=== PATIENT | male | born 1975 | race Caucasian/White ===

== ENCOUNTER → 2018-01-01 08:56 | Outpatient (POV) | payer BC, SELFPAY | PROVIDERS: Family Provider Family Medicine; Visit Provider Specialist | DX: G62.9 Polyneuropathy, unspecified (principal) | CPT/HCPCS: 95886; 95911 ==

== ENCOUNTER → 2018-07-12 07:26 | Outpatient (CLI) | payer BC, SELFPAY | PROVIDERS: PCP Family Medicine; Visit Provider Family Medicine | DX: R06.83 Snoring (principal); R40.0 Somnolence; R53.83 Other fatigue; I10 Essential (primary) hypertension | CPT/HCPCS: 95806 ==

== ENCOUNTER → 2019-06-10 16:33 | Outpatient (CLI) | payer MEDICARE, SELFPAY | PROVIDERS: PCP Family Medicine; Visit Provider Specialist | DX: G47.33 Obstructive sleep apnea (adult) (pediatric) (principal); G47.19 Other hypersomnia; G62.9 Polyneuropathy, unspecified; R06.83 Snoring ==

== ENCOUNTER → 2019-06-15 13:44 | Outpatient (CLI) | payer MEDICARE, SELFPAY | LOC: SL 13:45 | PROVIDERS: PCP Family Medicine; Visit Provider Specialist | DX: G47.33 Obstructive sleep apnea (adult) (pediatric) (principal); G47.34 Idiopathic sleep related nonobstructive alveolar hypoventilation | CPT/HCPCS: G0399 ==

== ENCOUNTER → 2020-04-14 14:03 | Outpatient (POV) | payer MEDICARE, MEDICAID, SELFPAY | PROVIDERS: Visit Provider Dermatology | DX: Z00.00 Encounter for general adult medical examination without abnormal findings (principal) ==

== ENCOUNTER 2020-04-22 03:01 | Emergency (ER) | payer MEDICARE, MEDICAID, SELFPAY ==
[2020-04-22 03:01] VITALS: BP 199/125; PULSE 107; RESP 16; TEMP 37.6; O2SAT 98; BMI 43.0
--- NOTE | 2020-04-22 03:13 | CT_ITS ---
PROCEDURE: CT LUMBAR SPINE WO CON CLINICAL HISTORY: lower back pain Low back pain, patient on dialysis COMPARISON: CT ABDPELW/O CT ABD PELVIS W/O CONTRAST from 06/03/2017 TECHNIQUE: Axial images obtained with sagittal and coronal reformats. All CT scans at the facility use one or more dose reduction, viz: automated exposure control, ma/kV adjustment per patient size (including targeted exams where dose is matched to indication, i.e. head), or iterative reconstruction technique. FINDINGS: L1-L2, L2-L3, L3-L4, have an unremarkable appearance. L4-5: Minimal bulging disc L5-S1: Grade 1 spondylitic spondylolisthesis of L5 on S1 with bulging disc. There is 6 mm anterolisthesis of L5. There is sclerosis of the inferior L5 endplate with Schmorl's nodes with mild degenerative disc disease at that level. There is moderate right and severe left foraminal narrowing from the spondylolisthesis, bulging disc, and bony hypertrophic change. Facet arthritic changes are also present at this level. Incidental note is made multiple varices in the perisplenic region. IMPRESSION: 1. L5-S1: Grade 1 spondylitic spondylolisthesis of L5 on S1 with bulging disc. There is 6 mm anterolisthesis of L5. There is sclerosis of the inferior L5 endplate with Schmorl's nodes with mild degenerative disc disease at that level. There is moderate right and severe left foraminal narrowing from the spondylolisthesis, bulging disc, and bony hypertrophic change. Facet arthritic changes are also present at this level 2. Perisplenic varices Dictated by: Michael May MD 04/22/2020 07:31 Michael May MD in [place] 04/22/2020 07:31
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
--- NOTE | 2020-04-22 03:53 | PC.NURSE ---
Pt gone to CT
[2020-04-22 04:01] VITALS: BP 143/87; PULSE 90; RESP 16; O2SAT 95
--- NOTE | 2020-04-22 04:10 | PC.NURSE ---
Pt returned from CT
[2020-04-22 04:15] LABS: Basophils % 0.3 % (0.1-2.0); Eosinophils # 0.1 K/mm3 (0.0-0.4); Eosinophils % 0.7 % (0.1-12.0); Hematocrit 31.5 % (42.0-52.0); Lymphocytes # 1.9 K/mm3 (0.7-4.5); Lymphocytes % 25.5 % (10-50); Mean Corpuscular Hemoglobin 33.1 pg (27.0-31.2); Mean Corpuscular Volume 94.5 fl (80-94); Mean Platelet Volume 7.9 fl (7.4-10.4); Monocytes # 0.7 K/mm3 (0.1-1.0); Monocytes % 9.2 % (1.7-9.3); Neutrophils # 4.9 K/mm3 (1.8-7.8); Neutrophils % 64.3 % (37.0-80.0); Platelet Count 224 K/mm3 (142-424); Red Blood Count 3.33 M/mm3 (4.60-6.20); Red Cell Distribution Width 14.6 % (11.5-17.5); White Blood Count 7.6 K/mm3 (4.8-10.8)
[2020-04-22 04:19] LABS: Chloride 97 mmol/L (98-107)
[2020-04-22 04:20] LABS: Potassium 3.6 mmoL/L (3.5-5.1); Sodium 136 mmol/L (136-145)
[2020-04-22 04:22] LABS: Alanine Aminotransferase 19 U/L (12-78); Aspartate Amino Transferase 18 U/L (17-59); Blood Urea Nitrogen 21 mg/dl (9-20); Creatinine Clearance Estimated 17 mL/min (50-200); Estimated Glomerular Filt Rate 12 ml/min (>60); GFR (African American) 15 ML/MIN (>60)
[2020-04-22 04:23] VITALS: BP 143/87; PULSE 89; RESP 16; O2SAT 97
[2020-04-22 04:23] LABS: Albumin/Globulin Ratio 1.3 (1.1-1.8); Alkaline Phosphatase 111 U/L (38-126); Anion Gap 14.6 mEq/L (5-15); Bilirubin,Total 0.5 mg/dl (0.2-1.3); Calcium 8.7 mg/dl (8.4-10.2); Carbon Dioxide 28 mmol/L (22.0-30.0); Globulin 3.1 g/dL (1.3-3.2); Glucose 153 mg/dl (74-100); Total Protein,Serum 7.1 g/dl (6.3-8.2)
[2020-04-22 04:59] VITALS: BP 157/86; PULSE 89; RESP 16; O2SAT 95
[2020-04-22 05:30] VITALS: BP 152/81; PULSE 86; RESP 16; TEMP 37.6; O2SAT 92
== END 2020-04-22 05:32 | disposition home or self-care (01) ==
PROVIDERS: Emergency Provider Emergency Medicine; PCP Family Medicine
DX: S39.012A Strain of muscle, fascia and tendon of lower back, initial encounter (principal); E11.9 Type 2 diabetes mellitus without complications; I10 Essential (primary) hypertension; Z87.442 Personal history of urinary calculi; Z90.49 Acquired absence of other specified parts of digestive tract; Z88.5 Allergy status to narcotic agent; Z94.4 Liver transplant status
CPT/HCPCS: 36415; 72131; 80053; 85025; 96374; 96375; 99283; J2405

== ENCOUNTER 2020-04-22 23:31 | Emergency (ER) | payer MEDICARE, MEDICAID, SELFPAY ==
--- NOTE | 2020-04-22 01:03 | ECG_ITS ---
APPROVED REPORT Exam: Resting ECG HR:106 bpm ECG Measurements Heart Rate 106 AXES OR 168 P 47 QRSd 108 QRS 24 QT 388 T -29 QTc 515 <Conclusion> Sinus tachycardia Moderate voltage criteria for LVH, may be normal variant Inferior infarct, age undetermined Abnormal ECG Electronically signed by : Dominic Uribe, 04/26/2020 15:04:41
[2020-04-22 23:31] VITALS: BP 146/92; PULSE 100; RESP 20; TEMP 37.8; O2SAT 94; BMI 43.0
--- NOTE | 2020-04-22 23:51 | HMH.EDBACK ---
ED Disposition Clinical Impression: Lumbar radiculopathy Disposition: Home, Self-Care Condition on Discharge: Fair Instructions: DI for Low Back Pain Additional Instructions: Please follow up with your PCP regarding back pain and talk to your dialysis doctor and let them review labs from today Prescriptions: Cyclobenzaprine HCl [Flexeril 10mg tablet] 10 mg PO Q8H PRN 10 Days #30 tab PRN Reason: Muscle Spasm Transmission Status: [facility] Referrals: Edgar Fournier [Primary Care Provider] - Time of Disposition: 05:27 - Critical Care Critical Care Time: No Attestation: On 04/22/20, the high probability of a clinically significant, sudden or life threatening deterioration of the following system(s) required my full and direct attention, intervention and personal management. The time I documented below is in addition to time spent performing reported procedures but includes the following listed in this critical care notation. Medical Decision Making - Medical Records Medical records reviewed: Yes: I reviewed the patient's medical records. MR Comment: Patient is here with a complaint of back pain; he was seen here yesterday for the same problem and had received morphine Toradol Depo-Medrol and was sent home with Flexeril; patient does have an appointment with his primary care doctor tomorrow; He has also been to other ERs for the same problem; the CT yesterday showed no acute findings. Patient was given shots of Toradol and Depo-Medrol as well as Flexeril muscle relaxant; when patient was about to be discharged he complains of chest pain. we have obtained ekg and labs and they show no acute findings (troponin is 0.05 x 2)..His troponin hovers around that number. He is feeling better after nitro glycerin was given. 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 For the back pain he has a prescription for flexeril - Bello Inquiry Pt receiving controlled substance: No Vital Signs: 04/22/20 23:31 04/23/20 00:00 04/23/20 00:16 Temperature 100.0 F H Temperature Source Oral Pulse Rate [Left Radial] 100 H 79 102 H Respiratory Rate 20 17 18 Blood Pressure [Left Arm] 146/92 H 150/87 H 136/84 Blood Pressure Mean [Left Arm] 110 108 101 Blood Pressure Source [Left Arm] Automatic Cuff Blood Pressure Position [Left Arm] Right Lateral 02 Sat by Pulse Oximetry 94 L 89 L 92 L Oxygen Delivery Method Room Air 04/23/20 00:30 04/23/20 00:32 04/23/20 01:00 Temperature 98.2 F Temperature Source Oral Pulse Rate [Left Radial] 100 H 98 H 103 H Respiratory Rate 18 15 18 Blood Pressure [Left Arm] 148/100 H 136/84 151/88 H Blood Pressure Mean [Left Arm] 116 101 109 Blood Pressure Source [Left Arm] Automatic Cuff Blood Pressure Position [Left Arm] Sitting Supine 02 Sat by Pulse Oximetry 94 L 96 95 Oxygen Delivery Method Room Air 04/23/20 01:30 04/23/20 02:06 04/23/20 02:30 Temperature 99.4 F Temperature Source Oral Pulse Rate [Left Radial] 100 H 94 H 98 H Respiratory Rate 18 18 20 Blood Pressure [Left Arm] 205/104 H 132/82 154/86 H Blood Pressure Mean [Left Arm] 137 98 108 Blood Pressure Source [Left Arm] Automatic Cuff Blood Pressure Position [Left Arm] Supine 02 Sat by Pulse Oximetry 94 L 91 L 95 Oxygen Delivery Method Room Air Room Air 04/23/20 03:00 04/23/20 03:29 04/23/20 04:00 Temperature Temperature Source Pulse Rate [Left Radial] 102 H 96 H 86 Respiratory Rate 18 18 15 Blood Pressure [Left Arm] 149/86 H 136/85 147/86 H Blood Pressure Mean [Left Arm] 107 102 106 Blood Pressure Source [Left Arm] Automatic Cuff Blood Pressure Position [Left Arm] Supine 02 Sat by Pulse Oximetry 97 94 L 97 Oxygen Delivery Method Room Air Room Air 04/23/20 04:28 04/23/20 05:04 Temperature Temperature Source Pulse Rate [Left Radial] 93 H 92 H Respiratory Rate 18 18 Blood Pressure [Left Arm] 151/86 H 133/89 Blood Pressure Mean [Left Arm] 107 103 Blood
[2020-04-23] VITALS (14 sets, daily range): BP systolic 132–205; BP diastolic 82–104; PULSE 79–103; RESP 12–20; TEMP 36.8–37.4; O2SAT 89–97
--- NOTE | 2020-04-23 01:11 | PC.NURSE ---
md refuses chest xray stating that he's too big for him to be seen.
--- NOTE | 2020-04-23 01:15 | PC.NURSE ---
pt to ct
[2020-04-23 01:18] LABS: POC Glucose,Bedside 131 (70-110)
[2020-04-23 01:24] LABS: Basophils % 0.2 % (0.1-2.0); Eosinophils # 0.1 K/mm3 (0.0-0.4); Eosinophils % 0.6 % (0.1-12.0); Hematocrit 32.5 % (42.0-52.0); Hemoglobin 11.3 g/dL (14.1-18.0); Lymphocytes # 2.2 K/mm3 (0.7-4.5); Lymphocytes % 16.7 % (10-50); Mean Corpuscular HGB Conc 34.9 g/dL (31.8-35.4); Mean Corpuscular Hemoglobin 32.7 pg (27.0-31.2); Mean Corpuscular Volume 93.9 fl (80-94); Mean Platelet Volume 7.8 fl (7.4-10.4); Monocytes # 0.9 K/mm3 (0.1-1.0); Monocytes % 6.4 % (1.7-9.3); Neutrophils # 10.1 K/mm3 (1.8-7.8); Neutrophils % 76.1 % (37.0-80.0); Platelet Count 259 K/mm3 (142-424); Red Blood Count 3.46 M/mm3 (4.60-6.20); Red Cell Distribution Width 14.6 % (11.5-17.5); White Blood Count 13.3 K/mm3 (4.8-10.8)
--- NOTE | 2020-04-23 01:26 | PC.NURSE ---
0100- Pt c/o nausea and CP rating 7 out 0f 10. He describes the pain as pressure in nature. 151/88 103 O2-93 RA R-20 0103- MD at bedside, orders EKG and labs.
[2020-04-23 01:29] LABS: Alanine Aminotransferase 87 U/L (12-78); Albumin Level 4.4 g/dl (3.5-5.0); Albumin/Globulin Ratio 1.2 (1.1-1.8); Alkaline Phosphatase 188 U/L (38-126); Anion Gap 18.7 mEq/L (5-15); Aspartate Amino Transferase 70 U/L (17-59); Bilirubin,Total 0.9 mg/dl (0.2-1.3); Blood Urea Nitrogen 33 mg/dl (9-20); Carbon Dioxide 29 mmol/L (22.0-30.0); Chloride 94 mmol/L (98-107); Creatinine Clearance Estimated 11 mL/min (50-200); Estimated Glomerular Filt Rate 7 ml/min (>60); GFR (African American) 9 ML/MIN (>60); Globulin 3.6 g/dL (1.3-3.2); Glucose 137 mg/dl (74-100); Potassium 3.7 mmoL/L (3.5-5.1); Sodium 138 mmol/L (136-145)
--- NOTE | 2020-04-23 01:32 | CT_ITS ---
PROCEDURE: CT CHEST WO CON CLINICAL INDICATION: chest pressure Chest pressure and pain COMPARISON: CT ABDPELW/O CT ABD PELVIS W/O CONTRAST from 06/03/2017 TECHNIQUE: Axial images obtained with sagittal and coronal reformats. All CT scans at the facility use one or more dose reduction, viz: automated exposure control, ma/kV adjustment per patient size (including targeted exams where dose is matched to indication, i.e. head), or iterative reconstruction technique. FINDINGS: HEART AND MEDIASTINAL STRUCTURES: No mediastinal or hilar mass or adenopathy. There is nonspecific thickening of the distal esophagus. Small metallic or high densely calcified area along the mitral valve. LUNGS AND PLEURAL SPACES: There is bilateral posterior pleural thickening slightly greater on the right compared to the left. Minimal atelectatic or fibrotic changes are present in the right upper lobe laterally. There is calcified granuloma in the left upper lobe. No lobar consolidation or collapse. BONY STRUCTURES: No acute bony abnormalities apparent. UPPER ABDOMEN: There is splenomegaly with lobular soft tissue densities noted along the medial aspect of the spleen and may be due to varices. Hyperdensity noted adjacent to the IVC and may represent the superior aspect of the TIPS device. The most inferior aspect of the CP angle on the right posteriorly is not included. ADDITIONAL FINDINGS: No other significant abnormalities. IMPRESSION: 1. No acute finding. 2. Nonacute/chronic changes as described above. Dictated by: Michael May MD 04/23/2020 06:08 Michael May MD in [place] 04/23/2020 06:08
[2020-04-23 01:41] LABS: Troponin I 0.05 ng/ml (0.00-0.034)
--- NOTE | 2020-04-23 02:06 | PC.NURSE ---
0158- Sub-lig nitro given 0207- pt states no relief from nitro, rates CP 10/. No N/V, diaphoresis, or SOA present.
--- NOTE | 2020-04-23 02:38 | PC.NURSE ---
Pt states 2nd SL nitro helped relieve pain to 6/10.
--- NOTE | 2020-04-23 03:38 | PC.NURSE ---
Addendum entered by Man Brennan RN 04/23/20 04:19: 0419- CP is 2 out of 10. Vitals stable at bedside Original Note: 0248- Pt rates CP 6 out of 10 Vitals stable
[2020-04-23 04:48] LABS: Troponin I 0.05 ng/ml (0.00-0.034)
[2020-04-23 05:35] LABS: NT Pro Brain Natriuretic Pep. 6080 pg/mL (0-125)
--- NOTE | 2020-04-24 05:39 | PC.NURSE ---
Medical records sent to [facility]
== END 2020-04-23 06:01 | disposition home or self-care (01) ==
PROVIDERS: Emergency Provider Emergency Medicine; PCP Family Medicine
DX: M54.16 Radiculopathy, lumbar region (principal); E11.9 Type 2 diabetes mellitus without complications; I10 Essential (primary) hypertension; F41.9 Anxiety disorder, unspecified; F17.210 Nicotine dependence, cigarettes, uncomplicated; Z88.5 Allergy status to narcotic agent; Z87.442 Personal history of urinary calculi; Z90.49 Acquired absence of other specified parts of digestive tract; R06.02 Shortness of breath
CPT/HCPCS: 36415; 71250; 72131; 80053; 82962; 83880; 84484; 85025; 93005; 96372; 96374; 96375; 99283; 99284; J1040; J2405

== ENCOUNTER 2020-09-30 20:39 | Emergency (ER) | payer MEDICARE, MEDICAID, SELFPAY ==
[2020-09-30 20:40] VITALS: BP 154/88; PULSE 97; RESP 14; TEMP 36.8; O2SAT 92; BMI 41.5
--- NOTE | 2020-09-30 21:10 | CT_ITS ---
PROCEDURE: CT ABDOMEN PELVIS WO CON CLINICAL INDICATION: abd pain Patient is diabetic on dialysis 3 days per week. Patient has had nausea, vomiting, and diarrhea. Status post liver transplant in 2018. COMPARISON: CT ABDPELW/O CT ABD PELVIS W/O CONTRAST from 06/03/2017 TECHNIQUE: Axial images obtained with sagittal and coronal reformats. All CT scans at the facility use one or more dose reduction, viz: automated exposure control, ma/kV adjustment per patient size (including targeted exams where dose is matched to indication, i.e. head), or iterative reconstruction technique. FINDINGS: LOWER THORAX: No acute abnormality. ABDOMEN & PELVIS: Patient has a tiny fat containing umbilical hernia is and 3 additional fat containing ventral hernias. These contain no loops of bowel and there is no CT indication of incarceration. There is no intraperitoneal free air. There is no intraperitoneal free fluid. For there is a moderate amount of subcutaneous edema most prominent superficial to the right abdominal wall. There is bilateral renal atrophy. There is moderate splenic enlargement. Surgical clips are present in the periportal location from prior liver transplant. There is absence of the gallbladder. Pancreas has an unremarkable unenhanced appearance. Pelvic organs are unremarkable. Scattered colonic diverticuli are present. There is a large amount of fluid in the stomach and in the cecum of uncertain clinical significance, correlate clinically. Nodular densities adjacent to the distal esophagus likely represent portions of the otherwise prominent splenorenal and esophageal varices rather than lymph nodes. There is no definite abdominal or pelvic adenopathy. Large splenorenal and paraesophageal varices and a left posterior peritoneal collateral vessel are present. There is redemonstration of bilateral lumbar spondylo lysis with worsening displacement and worsening of erosive degenerative change at the lumbosacral junction. IMPRESSION: 1. Large amount of fluid in the gastric fundus in cecum, correlate clinically to determine if significant in this patient. 2. Large splenorenal and periesophageal varices and other changes associated with cirrhosis and with prior liver transplant. 3. Worsening degenerative change at the lumbosacral junction associated with bilateral spondylolysis. 4. Fat containing ventral hernias. 5. Diverticulosis without CT evidence of diverticulitis. Dictated by: Radha Brady MD 10/01/2020 11:16 Radha Brady MD in [place] 10/01/2020 11:16
[2020-09-30 21:12] LABS: Basophils % 0.3 % (0.1-2.0); Eosinophils # 0.1 K/mm3 (0.0-0.4); Eosinophils % 0.8 % (0.1-12.0); Hematocrit 31.2 % (42.0-52.0); Hemoglobin 9.7 g/dL (14.1-18.0); Lymphocytes # 1.4 K/mm3 (0.7-4.5); Lymphocytes % 22.8 % (10-50); Mean Corpuscular Hemoglobin 31.8 pg (27.0-31.2); Mean Corpuscular Volume 102.4 fl (80-94); Mean Platelet Volume 7.4 fl (7.4-10.4); Monocytes # 0.3 K/mm3 (0.1-1.0); Monocytes % 4.8 % (1.7-9.3); Neutrophils # 4.5 K/mm3 (1.8-7.8); Neutrophils % 71.3 % (37.0-80.0); Platelet Count 204 K/mm3 (142-424); Red Blood Count 3.05 M/mm3 (4.60-6.20); Red Cell Distribution Width 16.6 % (11.5-17.5); White Blood Count 6.3 K/mm3 (4.8-10.8)
[2020-09-30 21:20] LABS: Alanine Aminotransferase 9 U/L (12-78); Albumin Level 4.1 g/dl (3.5-5.0); Albumin/Globulin Ratio 1.2 (1.1-1.8); Alkaline Phosphatase 77 U/L (38-126); Amylase 64 U/L (30-110); Anion Gap 16.6 mEq/L (5-15); Aspartate Amino Transferase 16 U/L (17-59); Bilirubin,Total 0.7 mg/dl (0.2-1.3); Blood Urea Nitrogen 55 mg/dl (9-20); Carbon Dioxide 25 mmol/L (22.0-30.0); Chloride 104 mmol/L (98-107); Creatinine Clearance Estimated 10 mL/min (50-200); Estimated Glomerular Filt Rate 7 ml/min (>60); GFR (African American) 8 ML/MIN (>60); Globulin 3.4 g/dL (1.3-3.2); Glucose 150 mg/dl (74-100); Lipase 64 U/L (23-300); Potassium 5.6 mmoL/L (3.5-5.1); Sodium 140 mmol/L (136-145); Total Protein,Serum 7.5 g/dl (6.3-8.2)
[2020-09-30 21:25] LABS: C-Reactive Protein 7.8 mg/L (0-4); Lactic Acid 1.3 mmol/L (0.7-2.1)
[2020-09-30 21:39] LABS: Procalcitonin 2.19 ng/mL (0.0-2.0)
[2020-09-30 21:53] LABS: Erythrocyte Sedimentation Rate 41 mm/hr (0-15)
--- NOTE | 2020-09-30 21:53 | HMH.EDNVD ---
ED Disposition Clinical Impression: Gastroenteritis, ESRD (end stage renal disease) on dialysis Anemia Qualifiers: Anemia type: unspecified type Qualified Code(s): D64.9 - Anemia, unspecified Disposition: Home, Self-Care Condition on Discharge: Good Instructions: DI for Diarrhea and Traveler's Diarrhea -- Adult Additional Instructions: clear fluids and trial of flagyl and call pcp about results of diarrhea panel Prescriptions: metroNIDAZOLE [Flagyl 500mg Tablet] 500 mg PO TID #21 tab Transmission Status: Pending [facility] Referrals: Edgar Fournier [Primary Care Provider] - - Critical Care Critical Care Time: No Attestation: On 09/30/20, the high probability of a clinically significant, sudden or life threatening deterioration of the following system(s) required my full and direct attention, intervention and personal management. The time I documented below is in addition to time spent performing reported procedures but includes the following listed in this critical care notation. Medical Decision Making - Medical Records Medical records reviewed: Yes: I reviewed the patient's medical records. - Bello Inquiry Pt receiving controlled substance: No Vital Signs: 09/30/20 20:40 Temperature 98.2 F Temperature Source Oral Pulse Rate [Right] 97 H Respiratory Rate 14 Blood Pressure [Right Arm] 154/88 H Blood Pressure Mean [Right Arm] 110 02 Sat by Pulse Oximetry 92 L Oxygen Delivery Method Room Air - Lab Data Lab results reviewed: Yes: I reviewed the patient's lab results. Lab Results 09/30/20 21:00: WBC 6.3, RBC 3.05 L, Hgb 9.7 L, Hct 31.2 L, MCV 102.4 H, MCH 31.8 H, MCHC 31.0 L, RDW 16.6, Plt Count 204, MPV 7.4, Neut % (Auto) 71.3, Lymph % (Auto) 22.8, [place] % (Auto) 4.8, Eos % (Auto) 0.8, Baso % (Auto) 0.3, Neut # (Auto) 4.5, Lymph # (Auto) 1.4, [place] # (Auto) 0.3, Eos # (Auto) 0.1, Baso # (Auto) 0.0, ESR 41 H 09/30/20 21:00: Sodium 140, Potassium 5.6 H, Chloride 104, Carbon Dioxide 25, Anion Gap 16.6 H, BUN 55 H, Creatinine 8.40 H, Estimated Creat Clear 10, Estimated GFR 7 L*, Est GFR ( Amer) 8 L*, Glucose 150 H, Calcium 9.0, Total Bilirubin 0.7, AST 16 L, ALT 9 L, Alkaline Phosphatase 77, C-Reactive Protein 7.8 H, Total Protein 7.5, Albumin 4.1, Globulin 3.4 H, Albumin/Globulin Ratio 1.2, Amylase 64, Lipase 64, Procalcitonin 2.19 H 09/30/20 21:00: Lactate 1.3 Result diagrams: 09/30/20 21:00 09/30/20 21:00 Orders (Tests/Meds): ED MEDICATIONS Generic Name Dose Route Start Last Admin Trade Name Freq PRN Reason Stop Dose Admin Sodium Chloride 1,000 mls @ 999 mls/hr 09/30/20 21:15 09/30/20 21:08 Sod Chlor 0.9% 1000ml Bag IV 09/30/20 22:15 999 mls/hr .Q1H1M TALIB Administration Sodium Chloride 8 ml 09/30/20 21:06 Sodium Chloride 0.9% 10ml Vial IV 10/30/20 21:05 NEEDED PRN dilute pepcid Discontinued Medications Generic Name Dose Route Start Last Admin Trade Name Freq PRN Reason Stop Dose Admin Dicyclomine HCl 20 mg 09/30/20 23:37 Dicyclomine 10mg Capsule PO 09/30/20 23:38 ONCE ONE Famotidine 20 mg 09/30/20 21:06 09/30/20 21:07 Famotidine 20mg/2ml Vial IV 09/30/20 21:07 20 mg ONCE ONE Administration Metoclopramide HCl 10 mg 09/30/20 21:06 09/30/20 21:07 Metoclopramide Hcl 10mg/2ml Vial IVP 09/30/20 21:07 10 mg ONCE ONE Administration Metronidazole 500 mg 09/30/20 23:37 Metronidazole 500 Mg Tablet PO 09/30/20 23:38 ONCE ONE Protocol Morphine Sulfate 2 mg 09/30/20 22:20 09/30/20 22:26 Morphine 2mg/Ml Syringe IV 09/30/20 22:21 2 mg ONCE ONE Administration Ondansetron HCl 4 mg 09/30/20 22:21 09/30/20 22:25 Ondansetron 4mg/2ml Vial IV 09/30/20 22:22 4 mg ONCE ONE Administration ORDERS Category Date Time Status CT abdomen pelvis wo con Stat Cat Scan 09/30/20 21:10 Taken Diarrhea 6-11 Panel, Cdiff PCR Stat Lab 09/30/20 22:22 Received Blood Culture Stat Mi
[2020-09-30 22:33] LABS: Adenovirus F 40/41, stool Not Detected (NotDetected); Astrovirus Not Detected (NotDetected); Campylobacter Not Detected (NotDetected); Clostridium Difficile A/B, PCR Not Detected (NotDetected); Cryptosporidium Not Detected (NotDetected); Cyclospora Cayetanesis Not Detected (NotDetected); Entamoeba histolytica Not Detected (NotDetected); Enteroaggregative E coli Not Detected (NotDetected); Enteropathogenic E coli Not Detected (NotDetected); Enterotoxigenic E coli Not Detected (NotDetected); Giardia lamblia Not Detected (NotDetected); Norovirus Not Detected (NotDetected); Plesimonas Shigalloides, PCR Not Detected (NotDetected); Rotavirus A Not Detected (NotDetected); Salmonella, PCR Not Detected (NotDetected); Sapovirus Not Detected (NotDetected); Shiga-like toxin E coli Not Detected (NotDetected); Shigella Enterovasive E coli Not Detected (NotDetected); Vibrio Cholerae Not Detected (NotDetected); Vibrio, PCR Not Detected (NotDetected); Yersinia Entercolitica, PCR Not Detected (NotDetected)
--- NOTE | 2020-09-30 23:35 | PC.NURSE ---
[facility] orders confirmed by [facility] in Pharmacy
[2020-09-30 23:59] VITALS: BP 158/86; PULSE 92; RESP 16; TEMP 36.8; O2SAT 93
== END 2020-10-01 00:04 | disposition home or self-care (01) ==
PROVIDERS: Emergency Provider Emergency Medicine; PCP Family Medicine
DX: K52.9 Noninfective gastroenteritis and colitis, unspecified (principal); E11.22 Type 2 diabetes mellitus with diabetic chronic kidney disease; E11.65 Type 2 diabetes mellitus with hyperglycemia; I12.0 Hypertensive chronic kidney disease with stage 5 chronic kidney disease or end stage renal disease; N18.6 End stage renal disease; Z99.2 Dependence on renal dialysis; D64.9 Anemia, unspecified
CPT/HCPCS: 74176; 80053; 82150; 83605; 83690; 84145; 85025; 85651; 86140; 87040; 87506; 96365; 96375; 99283; J2405

== ENCOUNTER → 2021-04-03 16:05 | Outpatient (CLI) | payer MEDICARE, MEDICAID, SELFPAY | PROVIDERS: PCP Obstetrics & Gynecology Gynecology; Visit Provider Obstetrics & Gynecology Gynecology | DX: Z01.812 Encounter for preprocedural laboratory examination (principal); Z11.52 Encounter for screening for COVID-19; U07.1 COVID-19 | CPT/HCPCS: U0003 ==

== ENCOUNTER → 2021-05-12 17:00 | Outpatient (CLI) | payer MEDICARE, MEDICAID, SELFPAY | PROVIDERS: PCP Family Medicine; Visit Provider Nurse Practitioner | DX: Z20.822 Contact with and (suspected) exposure to COVID-19 (principal) | CPT/HCPCS: C9803; U0003; U0005 ==

== ENCOUNTER 2021-05-18 04:45 | Emergency (ER) | payer MEDICARE, MEDICAID, SELFPAY ==
[2021-05-18 04:46] VITALS: BP 190/112; PULSE 89; RESP 16; TEMP 36.9; O2SAT 96; BMI 43.8
--- NOTE | 2021-05-18 05:30 | HMH.EDHA ---
ED Disposition Clinical Impression: Left against medical advice, Hypertensive urgency, ESRD (end stage renal disease) on dialysis Headache Qualifiers: Headache type: unspecified Headache chronicity pattern: acute headache Intractability: not intractable Qualified Code(s): R51.9 - Headache, unspecified Disposition: Left Against Medical Advice Condition on Discharge: Fair Instructions: DI for Headache Additional Instructions: call pcp this am and take am meds Referrals: Edgar Fournier [Primary Care Provider] - - Critical Care Critical Care Time: No Attestation: On 05/18/21, the high probability of a clinically significant, sudden or life threatening deterioration of the following system(s) required my full and direct attention, intervention and personal management. The time I documented below is in addition to time spent performing reported procedures but includes the following listed in this critical care notation. Medical Decision Making - Medical Records Medical records reviewed: Yes: I reviewed the patient's medical records. - Bello Inquiry Pt receiving controlled substance: No Vital Signs: 05/18/21 04:46 05/18/21 05:33 Temperature 98.5 F 0 F L Temperature Source Oral Pulse Rate 0 L Pulse Rate [Right] 89 Respiratory Rate 16 0 L Blood Pressure 00/0 L Blood Pressure [Right Arm] 190/112 H Blood Pressure Mean [Right Arm] 138 Blood Pressure Source [Right Arm] Manual Cuff/ Auscultation 02 Sat by Pulse Oximetry 96 Oxygen Delivery Method Room Air - Lab Data Lab results reviewed: Yes: I reviewed the patient's lab results. Orders (Tests/Meds): ED MEDICATIONS Discontinued Medications Generic Name Dose Route Start Last Admin Trade Name Prasanthq PRN Reason Stop Dose Admin Acetaminophen 1,000 mg 05/18/21 05:14 05/18/21 05:30 Acetaminophen 500mg Tab PO 05/18/21 05:15 Not Given ONCE ONE Clonidine HCl 0.1 mg 05/18/21 05:15 05/18/21 05:29 Clonidine 0.1mg Tablet PO 05/18/21 05:16 Not Given ONCE ONE Medical Decision Narrative: has known htn and no focal neuro sx- do not feel ct needed at this moment will give clonidine and tyenol and am meds early at this time and consult with pcp about close follow up this am and response to meds Headache HPI - General Chief Complaint: Headache Stated Complaint: High blood pressure 184/90,MACK Time Seen by Provider: 05/18/21 05:30 Mode of Arrival: Family Vehicle Source of Information: Patient, Medical Record Limitations: No Limitations Description of Symptoms (Recalled from ER Triage Doc. by RN): high blood pressure since yesterday at dialysis resulting in a busting headache . pt states to have taken all home medications including 3 clonidines and perscribed doses of hydralizine nicardipine doxyzoysan and viagra in attemps to lower his blood pressure - History of Present Illness HPI Narrative: pt does not take bp meds prior to dialysis and was noted to have elevated bp and assoc mack - took evening doses and tyenol during night but has had persistent bp - took clonidine and hydralazine - no chest pain or visual sx and no focal neuro sx - MD Complaint: headache Onset (ago): hour(s) Onset description: gradual Location: diffuse Severity: moderate Quality: throbbing Associated symptoms: none Treatments prior to arrival: acetaminophen - Related Data Home Medications Medication Instructions Recorded Confirmed carvedilol 25 mg tablet 25 mg PO BID 30 Days #120 11/27/17 03/25/20 clonidine HCl 0.1 mg tablet 0.1 mg PO DAILY 30 Days #30 11/27/17 03/25/20 insulin NPH isoph U-100 human 100 50 unit SUB-Q DAILY 14 Days #15 11/27/17 03/25/20 unit/mL (3 mL) subcutaneous pen mycophenolate mofetil 250 mg 250 mg PO DAILY 30 Days #120 11/27/17 03/25/20 capsule Aspirin [Aspir 81] 81 mg PO DAILY 04/15/18 03/25/20 Tacrolimus [Envarsus Xr] 2 mg PO BID 04/15/18 03/25/20 calcium acetate(phosphat bind) 667 667 mg PO ONCE cap 02/20/20
[2021-05-18 05:33] VITALS: BP 00/0; PULSE 0; RESP 0; TEMP -17.7; TEMP 0; O2SAT 0
== END 2021-05-18 05:37 | disposition left against medical advice (07) ==
LOC: ER 05:12
PROVIDERS: Emergency Provider Emergency Medicine; PCP Family Medicine
DX: I16.0 Hypertensive urgency (principal); N18.6 End stage renal disease; Z99.2 Dependence on renal dialysis; F41.9 Anxiety disorder, unspecified; Z87.442 Personal history of urinary calculi; Z79.899 Other long term (current) drug therapy
CPT/HCPCS: 99282

== ENCOUNTER → 2021-10-25 13:31 | Outpatient (CLI) | payer MEDICARE, MEDICAID, SELFPAY | PROVIDERS: Visit Provider Obstetrics & Gynecology Gynecology | DX: Z01.812 Encounter for preprocedural laboratory examination (principal); Z11.52 Encounter for screening for COVID-19 | CPT/HCPCS: C9803; U0003; U0005 ==

== ENCOUNTER 2021-12-12 23:38 | Emergency (ER) | payer MEDICARE, MEDICAID, SELFPAY ==
[2021-12-12 23:40] VITALS: PULSE 90; RESP 20; TEMP 36.7; O2SAT 99; BMI 44.6
--- NOTE | 2021-12-12 23:53 | ECG_ITS ---
APPROVED REPORT Exam: Resting ECG HR:90 bpm ECG Measurements Heart Rate 90 AXES [place] 184 P 66 QRSd 105 QRS 76 QT 377 T 27 QTc 425 Conclusion SINUS RHYTHM NONSPECIFIC T-WAVE ABNORMALITY BORDERLINE ECG UNCONFIRMED REPORT Electronically signed by : Dominic Uribe MD 12/15/2021 17:59:44
[2021-12-13] VITALS (10 sets, daily range): BP systolic 170–221; BP diastolic 90–126; PULSE 77–85; RESP 13–18; TEMP 36.7; O2SAT 92–96
--- NOTE | 2021-12-13 00:44 | XR_ITS ---
PROCEDURE INFORMATION: Exam: XR Chest Exam date and time: 12/13/2021 1:07 AM Age: 46 years old Clinical indication: Shortness of breath; Patient HX: Diabetic on dialysis, ; additional info: SOA TECHNIQUE: Imaging protocol: XR of the chest. Views: 2 views. COMPARISON: CT CHEST WO CON 04/23/2020 1:32 AM FINDINGS: Lungs: Central vascular congestion, without overt pulmonary edema. Calcified granuloma in the left upper lobe. No consolidation. Pleural spaces: No pleural effusion. No pneumothorax. Heart/Mediastinum: Heart size mildly enlarged. Bones/joints: Unremarkable. IMPRESSION: Mild cardiomegaly with central vascular congestion.
--- NOTE | 2021-12-13 00:45 | CT_ITS ---
PROCEDURE INFORMATION: Exam: CT Abdomen And Pelvis Without Contrast Exam date and time: 12/13/2021 1:17 AM Age: 46 years old Clinical indication: Other: Abd bloating and watery stool, SOB; Prior surgery; Surgery date: 6+ months; Surgery type: Liver transplant, gb, appendix, back surgery; Additional info: Abd bloating, watery stool TECHNIQUE: Imaging protocol: Computed tomography of the abdomen and pelvis without contrast. Radiation optimization: All CT scans at this facility use at least one of these dose optimization techniques: automated exposure control; mA and/or kV adjustment per patient size (includes targeted exams where dose is matched to clinical indication); or iterative reconstruction. COMPARISON: CT ABDOMEN PELVIS WO CON 09/30/2020 9:14 PM FINDINGS: Lungs: The visualized lung bases are unremarkable. Diaphragm: Small to moderate size hiatal hernia. Liver: Transplant liver. Gallbladder and bile ducts: Cholecystectomy. No biliary dilation. Pancreas: Unremarkable noncontrast appearance. Spleen: Spleen borderline enlarged measuring 12.1 cm in length. Calcified granulomas. Adrenal glands: Normal. No mass. Kidneys and ureters: Unremarkable noncontrast appearance. No nephrolithiasis. No hydronephrosis. Stomach and bowel: There is edema/stranding in the manju hepatis, surrounding the proximal duodenum. Findings may be postsurgical, but appear slightly more conspicuous than prior study of 09/30/2020, raising possibility of duodenitis. Several loops of nondilated small bowel are within the dominant ventral hernia sac, a new finding since prior. No bowel obstruction. Semi-solid stool throughout the colon suggesting diarrheal illness. Colonic diverticula, without evidence of acute diverticulitis. Appendix: Normal appendix. Intraperitoneal space: No extraluminal gas or pneumoperitoneum. No ascites. No intra-abdominal fluid collection. Vasculature: No abdominal aortic aneurysm. Scattered mild atherosclerotic calcifications. 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 Lymph nodes: No enlarged lymph nodes. Urinary bladder: Bladder partially decompressed, limiting its evaluation. Questionable mild nonspecific bladder wall thickening, similar to prior. Reproductive: Unremarkable as visualized. Bones/joints: Decompressive laminectomy at L5-S1. Marked L5-S1 disc height loss with vacuum phenomenon and chronic endplate remodeling. High-grade neural foraminal narrowing at L5-S1. Appearance is similar to prior. No acute fracture. Soft tissues: Enlarging ventral hernia containing loops of nondilated small bowel. A few small ventral hernia is also noted. Diffuse body wall edema, most significantly involving the anterior abdominal wall/pannus, increased since prior. No organized/drainable abdominal wall fluid collection. Small right greater than left inguinal hernias containing fat. IMPRESSION: 1. Transplant liver. Ill-defined stranding in the manju hepatis could be postsurgical, but appears slightly more conspicuous than 09/30/2020, raising the possibility of duodenitis. Question is there a history of peptic ulcer disease. 2. Semi-solid stool within the colon suggesting nonspecific diarrheal illness. 3. Enlarging ventral hernia, now containing several loops of nondilated small bowel. No bowel obstruction. 4. Body wall edema, increased since prior, especially involving the anterior abdominal wall/pannus. Consider cellulitis/panniculitis.
[2021-12-13 00:51] LABS: Basophils # 0.1 K/mm3 (0-0.2); Basophils % 1.9 % (0.1-2.0); Eosinophils # 0.1 K/mm3 (0.0-0.4); Eosinophils % 1.3 % (0.1-12.0); Hematocrit 31.1 % (42.0-52.0); Hemoglobin 10.1 g/dL (14.1-18.0); Lymphocytes # 1.6 K/mm3 (0.7-4.5); Lymphocytes % 34.9 % (10-50); Mean Corpuscular HGB Conc 32.6 g/dL (31.8-35.4); Mean Corpuscular Hemoglobin 34.9 pg (27.0-31.2); Mean Corpuscular Volume 107.2 fl (80-94); Mean Platelet Volume 8.2 fl (7.4-10.4); Monocytes # 0.3 K/mm3 (0.1-1.0); Monocytes % 6.1 % (1.7-9.3); Neutrophils # 2.5 K/mm3 (1.8-7.8); Neutrophils % 55.8 % (37.0-80.0); Platelet Count 229 K/mm3 (142-424); Red Cell Distribution Width 14.5 % (11.5-17.5); White Blood Count 4.6 K/mm3 (4.8-10.8)
[2021-12-13 01:01] LABS: Coronavirus 19, PCR Not Detected (NotDetected); Influenza A, PCR Not Detected (NotDetected); Influenza B, PCR Not Detected (NotDetected)
[2021-12-13 01:05] LABS: Alanine Aminotransferase 14 U/L (12-78); Albumin Level 4.4 g/dl (3.5-5.0); Albumin/Globulin Ratio 1.5 (1.1-1.8); Alkaline Phosphatase 82 U/L (38-126); Anion Gap 18.4 mEq/L (5-15); Aspartate Amino Transferase 31 U/L (17-59); Bilirubin,Total 0.6 mg/dl (0.2-1.3); Blood Urea Nitrogen 78 mg/dl (9-20); Calcium 8.3 mg/dl (8.4-10.2); Carbon Dioxide 29 mmol/L (22.0-30.0); Chloride 103 mmol/L (98-107); Creatinine Clearance Estimated 8 mL/min (50-200); Estimated Glomerular Filt Rate 5 ml/min (>60); Globulin 2.9 g/dL (1.3-3.2); Glucose 116 mg/dl (74-100); Potassium 5.4 mmoL/L (3.5-5.1); Sodium 145 mmol/L (136-145); Total Protein,Serum 7.3 g/dl (6.3-8.2)
[2021-12-13 01:07] LABS: GFR (African American) 6 ML/MIN (>60)
[2021-12-13 01:10] LABS: C-Reactive Protein 14.1 mg/L (0-4)
[2021-12-13 01:16] LABS: Erythrocyte Sedimentation Rate 25 mm/hr (0-15)
[2021-12-13 01:19] LABS: NT Pro Brain Natriuretic Pep. 18100 pg/mL (0-125); Troponin I 0.06 ng/ml (0.00-0.034)
[2021-12-13 01:23] LABS: Procalcitonin 0.911 ng/mL (0.0-2.0)
--- NOTE | 2021-12-13 01:23 | PC.NURSE ---
Dr. Montez notified of critical Creatinine @[id number]
--- NOTE | 2021-12-13 02:00 | [facility].EDSOB ---
ED Disposition Clinical Impression: ESRD (end stage renal disease) on dialysis Abdominal pain Qualifiers: Abdominal location: generalized Qualified Code(s): R10.84 - Generalized abdominal pain HTN (hypertension) Qualifiers: Hypertension type: renovascular hypertension Qualified Code(s): I15.0 - Renovascular hypertension Gastritis Qualifiers: Gastritis type: unspecified gastritis Chronicity: unspecified Gastritis bleeding: without bleeding Qualified Code(s): K29.70 - Gastritis, unspecified, without bleeding Disposition: Home, Self-Care Condition on Discharge: Good Instructions: DI for Shortness of Breath Additional Instructions: use meds and see pcp for follow up Prescriptions: Pantoprazole Sodium [Protonix 40mg tablet] 40 mg PO DAILY #30 tab Transmission Status: Pending to [facility] Referrals: Edgar Fournier [Primary Care Provider] - - Critical Care Critical Care Time: No Attestation: On 12/12/21, the high probability of a clinically significant, sudden or life threatening deterioration of the following system(s) required my full and direct attention, intervention and personal management. The time I documented below is in addition to time spent performing reported procedures but includes the following listed in this critical care notation. Medical Decision Making - Medical Records Medical records reviewed: Yes: I reviewed the patient's medical records. - Bello Inquiry Pt receiving controlled substance: No Vital Signs: 12/12/21 23:40 12/13/21 00:20 12/13/21 00:23 Temperature 98.1 F Temperature Source Oral Pulse Rate 78 81 Pulse Rate [Right] 90 Respiratory Rate 20 14 Blood Pressure 211/125 H 217/126 H Blood Pressure Mean Blood Pressure Source [Right Arm] Manual Cuff/ Auscultation Blood Pressure Position [Right Arm] Supine 02 Sat by Pulse Oximetry 99 96 96 Oxygen Delivery Method Room Air Room Air Room Air 12/13/21 00:30 12/13/21 01:01 12/13/21 01:30 Temperature Temperature Source Pulse Rate 78 78 79 Pulse Rate [Right] Respiratory Rate 14 13 14 Blood Pressure 216/118 H 170/90 H 196/108 H Blood Pressure Mean Blood Pressure Source [Right Arm] Blood Pressure Position [Right Arm] 02 Sat by Pulse Oximetry 96 96 96 Oxygen Delivery Method Room Air Room Air Room Air 12/13/21 02:00 12/13/21 02:30 12/13/21 03:00 Temperature Temperature Source Pulse Rate 85 78 77 Pulse Rate [Right] Respiratory Rate 16 15 Blood Pressure 221/123 H 190/108 H 196/114 H Blood Pressure Mean 141 Blood Pressure Source [Right Arm] Blood Pressure Position [Right Arm] 02 Sat by Pulse Oximetry 96 96 92 L Oxygen Delivery Method Room Air Room Air Room Air - Lab Data Lab results reviewed: Yes: I reviewed the patient's lab results. Lab Results 12/13/21 00:05: WBC 4.6 L, RBC 2.90 L, Hgb 10.1 L, Hct 31.1 L, MCV 107.2 H, MCH 34.9 H, MCHC 32.6, RDW 14.5, Plt Count 229, MPV 8.2, Neut % (Auto) 55.8, Lymph % (Auto) 34.9, [place] % (Auto) 6.1, Eos % (Auto) 1.3, Baso % (Auto) 1.9, Neut # (Auto) 2.5, Lymph # (Auto) 1.6, [place] # (Auto) 0.3, Eos # (Auto) 0.1, Baso # (Auto) 0.1, ESR 25 H 12/13/21 00:05: Sodium 145, Potassium 5.4 H, Chloride 103, Carbon Dioxide 29, Anion Gap 18.4 H, BUN 78 H, Creatinine 10.50 H, Estimated Creat Clear 8, Estimated GFR 5 L*, Est GFR ( Amer) 6 L*, Glucose 116 H, Calcium 8.3 L, Total Bilirubin 0.6, AST 31, ALT 14, Alkaline Phosphatase 82, Troponin I 0.06 H, C-Reactive Protein 14.1 H, NT-Pro-B Natriuret Pep 51115 H, Total Protein 7.3, Albumin 4.4, Globulin 2.9, Albumin/Globulin Ratio 1.5, Procalcitonin 0.911 12/13/21 00:05: Amylase 72, Lipase 193 12/13/21 00:58: SARS-CoV-2 (PCR) Not detected, Influenza A Untype (PCR) Not detected, Influenza Type B (PCR) Not detected Result diagrams: 12/13/21 00:05 12/13/21 00:05 Orders (Tests/Meds): ED MEDICATIONS Generic Name Dose Route Start Last Admin Trade Name Freq PRN Reason Stop D
--- NOTE | 2021-12-13 02:02 | PC.NURSE ---
PT UPDATED WITH WAIT TIMES. NO FURTHER COMPLAINTS VOICED. WCM.
[2021-12-13 02:18] LABS: Amylase 72 U/L (30-110); Lipase 193 U/L (23-300)
== END 2021-12-13 04:10 | disposition home or self-care (01) ==
PROVIDERS: Emergency Provider Emergency Medicine; PCP Family Medicine
DX: K29.70 Gastritis, unspecified, without bleeding (principal); N18.6 End stage renal disease; Z99.2 Dependence on renal dialysis; Z94.4 Liver transplant status; I12.0 Hypertensive chronic kidney disease with stage 5 chronic kidney disease or end stage renal disease; Z79.899 Other long term (current) drug therapy
CPT/HCPCS: 71046; 74176; 80053; 82150; 83690; 83880; 84145; 84484; 85025; 85651; 86140; 93005; 96374; 96375; 99284; C9803; U0003; U0005

== ENCOUNTER 2022-02-13 05:41 | Emergency (ER) | payer MEDICARE, MEDICAID, SELFPAY ==
[2022-02-13] VITALS (7 sets, daily range): BP systolic 145–178; BP diastolic 79–102; PULSE 71–96; RESP 16–20; TEMP 36.7; O2SAT 96–100; BMI 42.5
--- NOTE | 2022-02-13 05:39 | ECG_ITS ---
APPROVED REPORT Exam: Resting ECG HR:87 bpm ECG Measurements Heart Rate 87 AXES VT 228 P 64 QRSd 114 QRS 84 QT 410 T 15 QTc 455 Conclusion SINUS RHYTHM WITH FIRST DEGREE AV BLOCK nonsignificant q in III ABNORMAL ECG UNCONFIRMED REPORT Electronically signed by : Dominic Uribe MD 02/14/2022 21:31:37
--- NOTE | 2022-02-13 05:42 | XR_ITS ---
PROCEDURE INFORMATION: Exam: XR Chest Exam date and time: 02/13/2022 5:55 AM Age: 46 years old Clinical indication: Chest wall pain; Additional info: Cp TECHNIQUE: Imaging protocol: Radiologic exam of the chest. Views: 1 view. COMPARISON: CR XR CHEST 2V 12/13/2021 1:07 AM FINDINGS: Lungs: No focal airspace disease. Pleural spaces: Unremarkable. No pleural effusion. No pneumothorax. Heart/Mediastinum: Cardiomediastinal silhouette is within normal limits. Bones/joints: Unremarkable. IMPRESSION: No acute cardiopulmonary abnormality.
[2022-02-13 06:19] LABS: Basophils # 0.1 K/mm3 (0-0.2); Basophils % 1.4 % (0.1-2.0); Eosinophils # 0.2 K/mm3 (0.0-0.4); Hemoglobin 8.4 g/dL (14.1-18.0); Lymphocytes # 0.9 K/mm3 (0.7-4.5); Lymphocytes % 25.2 % (10-50); Mean Corpuscular HGB Conc 28.8 g/dL (31.8-35.4); Mean Corpuscular Hemoglobin 31.6 pg (27.0-31.2); Mean Corpuscular Volume 109.9 fl (80-94); Mean Platelet Volume 7.9 fl (7.4-10.4); Monocytes # 0.3 K/mm3 (0.1-1.0); Monocytes % 8.1 % (1.7-9.3); Neutrophils % 59.3 % (37.0-80.0); Platelet Count 267 K/mm3 (142-424); Red Blood Count 2.65 M/mm3 (4.60-6.20); Red Cell Distribution Width 14.6 % (11.5-17.5); White Blood Count 3.4 K/mm3 (4.8-10.8)
[2022-02-13 06:20] LABS: Hematocrit 29.2 % (42.0-52.0)
[2022-02-13 06:30] LABS: Amylase 57 U/L (30-110); Anion Gap 13.3 mEq/L (5-15); Blood Urea Nitrogen 51 mg/dl (9-20); Calcium 8.9 mg/dl (8.4-10.2); Carbon Dioxide 34 mmol/L (22.0-30.0); Chloride 97 mmol/L (98-107); Creatinine Clearance Estimated 10 mL/min (50-200); Estimated Glomerular Filt Rate 7 ml/min (>60); Glucose 110 mg/dl (74-100); Lipase 115 U/L (23-300); Potassium 4.3 mmoL/L (3.5-5.1); Sodium 140 mmol/L (136-145)
[2022-02-13 06:35] LABS: C-Reactive Protein 19.6 mg/L (0-4); GFR (African American) 8 ML/MIN (>60)
[2022-02-13 06:40] LABS: Ammonia 10 umol/L (9-30)
[2022-02-13 06:44] LABS: Troponin I 0.05 ng/ml (0.00-0.034)
--- NOTE | 2022-02-13 06:44 | PC.NURSE ---
[facility] called to confirm they received release of info they stated they will sent records over at this time
[2022-02-13 06:49] LABS: Procalcitonin 1.07 ng/mL (0.0-2.0)
--- NOTE | 2022-02-13 06:55 | [facility].EDCP ---
ED Disposition Clinical Impression: Atypical chest pain, ESRD (end stage renal disease) on dialysis Disposition: Home, Self-Care Condition on Discharge: Good Instructions: DI for Atypical Chest Pain Additional Instructions: see pcp for follow up and see card for follow up Referrals: Edgar Fournier [Primary Care Provider] - - Critical Care Critical Care Time: No Attestation: On 02/13/22, the high probability of a clinically significant, sudden or life threatening deterioration of the following system(s) required my full and direct attention, intervention and personal management. The time I documented below is in addition to time spent performing reported procedures but includes the following listed in this critical care notation. Medical Decision Making - Medical Records Medical records reviewed: Yes: I reviewed the patient's medical records. - Bello Inquiry Pt receiving controlled substance: No Vital Signs: 02/13/22 05:41 02/13/22 06:40 02/13/22 07:10 Temperature 98.0 F Temperature Source Oral Pulse Rate 88 72 Pulse Rate [Right] 90 Respiratory Rate 20 16 Blood Pressure 165/86 H 149/87 H Blood Pressure [Right Arm] 178/102 H Blood Pressure Mean 128 111 Blood Pressure Mean [Right Arm] 127 02 Sat by Pulse Oximetry 97 100 96 02/13/22 07:40 02/13/22 08:10 02/13/22 08:40 Temperature Temperature Source Pulse Rate 71 96 H 96 H Pulse Rate [Right] Respiratory Rate 16 Blood Pressure 145/82 H 162/84 H 154/79 H Blood Pressure [Right Arm] Blood Pressure Mean 111 110 104 Blood Pressure Mean [Right Arm] 02 Sat by Pulse Oximetry 98 - Lab Data Lab results reviewed: Yes: I reviewed the patient's lab results. Lab Results 02/13/22 06:11: WBC 3.4 L, RBC 2.65 L, Hgb 8.4 L, Hct 29.2 L, MCV 109.9 H, MCH 31.6 H, MCHC 28.8 L, RDW 14.6, Plt Count 267, MPV 7.9, Neut % (Auto) 59.3, Lymph % (Auto) 25.2, [place] % (Auto) 8.1, Eos % (Auto) 6.0, Baso % (Auto) 1.4, Neut # (Auto) 2.0, Lymph # (Auto) 0.9, [place] # (Auto) 0.3, Eos # (Auto) 0.2, Baso # (Auto) 0.1, ESR 49 H 02/13/22 06:11: Sodium 140, Potassium 4.3, Chloride 97 L, Carbon Dioxide 34 H, Anion Gap 13.3, BUN 51 H, Creatinine 8.70 H, Estimated Creat Clear 10, Estimated GFR 7 L*, Est GFR ( Amer) 8 L*, Glucose 110 H, Calcium 8.9, Troponin I 0.05 H, C-Reactive Protein 19.6 H, Amylase 57, Procalcitonin 1.07 02/13/22 06:11: Ammonia 10 02/13/22 06:11: Lipase 115 02/13/22 08:00: Troponin I 0.05 H Result diagrams: 02/13/22 06:11 02/13/22 06:11 Orders (Tests/Meds): ED MEDICATIONS Generic Name Dose Route Start Last Admin Trade Name Freq PRN Reason Stop Dose Admin Sodium Chloride 8 ml 02/13/22 05:47 Sodium Chloride 0.9% 10ml Vial IV 03/15/22 05:46 NEEDED PRN dilute pepcid Discontinued Medications Generic Name Dose Route Start Last Admin Trade Name Freq PRN Reason Stop Dose Admin Aspirin 324 mg 02/13/22 05:43 02/13/22 05:59 Aspirin 81mg Chewable Tablet PO 02/13/22 05:44 324 mg ONCE ONE Administration Famotidine 20 mg 02/13/22 05:47 02/13/22 06:11 Famotidine 20mg/2ml Vial IV 02/13/22 05:48 20 mg ONCE ONE Administration Metoclopramide HCl 10 mg 02/13/22 05:47 02/13/22 06:11 Metoclopramide Hcl 10mg/2ml Vial IVP 02/13/22 05:48 10 mg ONCE ONE Administration Nitroglycerin 0.4 mg 02/13/22 05:43 Nitroglycerin 0.4mg Sl Tablet SL 02/13/22 05:44 ONCE ONE ORDERS Category Date Time Status Troponin I Q3H Lab 02/13/22 11:45 Ordered - Radiology Data #1 Image(s): Chest Image Reviewed: Yes I have reviewed radiologist's interpretation Preliminary Findings: Normal/NAD - ECG Data Tracing #1 Normal Sinus Rhythm: Yes Ischemic changes: non-specific ST-T wave changes Medical Decision Narrative: has known esrd with episode of chest pain - has stable card enz - and ekg and resolution of pain - Chest Pain HPI - General Chief Complaint: Chest Pain
[2022-02-13 06:56] LABS: Erythrocyte Sedimentation Rate 49 mm/hr (0-15)
--- NOTE | 2022-02-13 07:01 | PC.NURSE ---
Received records from [facility] at this time
--- NOTE | 2022-02-13 07:30 | PC.NURSE ---
pt resting offers no c/o at present
--- NOTE | 2022-02-13 08:05 | PC.NURSE ---
tech collected 2nd TROP, successful draw, pt a sleep in bed comfortably. Also stated I belched and I feel better
--- NOTE | 2022-02-13 08:34 | PC.NURSE ---
called lab regarding 2nd trop. still running has approx 9mins left
[2022-02-13 08:43] LABS: Troponin I 0.05 ng/ml (0.00-0.034)
--- NOTE | 2022-02-13 08:46 | PC.NURSE ---
pt ambulated to the restroom
== END 2022-02-13 09:10 | disposition home or self-care (01) ==
PROVIDERS: Emergency Provider Emergency Medicine; PCP Family Medicine
DX: R07.9 Chest pain, unspecified (principal); E11.22 Type 2 diabetes mellitus with diabetic chronic kidney disease; I12.0 Hypertensive chronic kidney disease with stage 5 chronic kidney disease or end stage renal disease; N18.6 End stage renal disease; Z99.2 Dependence on renal dialysis; Z79.82 Long term (current) use of aspirin; Z79.4 Long term (current) use of insulin; Z79.899 Other long term (current) drug therapy; Z88.6 Allergy status to analgesic agent; F41.9 Anxiety disorder, unspecified; M19.90 Unspecified osteoarthritis, unspecified site
CPT/HCPCS: 71045; 80048; 82140; 82150; 83690; 84145; 84484; 85025; 85651; 86140; 93005; 96374; 96375; 99284

== ENCOUNTER → 2022-05-31 20:35 | Outpatient (CLI) | payer MEDICARE, MEDICAID, SELFPAY | PROVIDERS: PCP Family Medicine; Visit Provider Nurse Practitioner Family | DX: G47.33 Obstructive sleep apnea (adult) (pediatric) (principal); N18.6 End stage renal disease; F41.9 Anxiety disorder, unspecified; Z94.4 Liver transplant status; Z99.2 Dependence on renal dialysis | CPT/HCPCS: 95811 ==

== ENCOUNTER 2023-05-03 07:48 | Outpatient (RCR) | payer MEDICARE, MEDICAID, SELFPAY | END 2023-05-03 07:50 | disposition home or self-care (01) | LOC: PT 07:48 | PROVIDERS: PCP Family Medicine; Visit Provider Family Medicine | DX: R26.89 Other abnormalities of gait and mobility (principal) | CPT/HCPCS: 97163; 97542 ==

== ENCOUNTER 2023-06-07 09:00 | Outpatient (RCR) | payer MEDICARE, MEDICAID, SELFPAY | END 2023-06-07 10:05 | disposition home or self-care (01) | LOC: PT 09:00 | PROVIDERS: PCP Family Medicine; Visit Provider Family Medicine | DX: M62.81 Muscle weakness (generalized) (principal); R26.89 Other abnormalities of gait and mobility | CPT/HCPCS: 97110; 97163 ==

== ENCOUNTER 2023-08-23 12:37 | Outpatient (CLI) | payer MEDICARE, MEDICAID, SELFPAY ==
[2023-08-23 13:33] LABS: Erythrocyte Sedimentation Rate 42 mm/hr (0-15)
[2023-08-23 14:24] LABS: C-Reactive Protein 20.4 mg/L (0-4)
[2023-08-23 15:15] LABS: Hemoglobin A1C 6.7 % (4.0-6.0)
== END 2023-08-23 23:59 ==
LOC: LAB 12:39
PROVIDERS: PCP Family Medicine; Visit Provider Internal Medicine Infectious Disease
DX: M54.50 Low back pain, unspecified (principal); R73.09 Other abnormal glucose; R79.82 Elevated C-reactive protein (CRP)
CPT/HCPCS: 36415; 83036; 85651; 86140

== ENCOUNTER 2023-09-26 11:43 | Outpatient (CLI) | payer MEDICARE, MEDICAID, SELFPAY ==
[2023-09-26 12:24] LABS: Alanine Aminotransferase 18 U/L (12-78); Albumin Level 4.2 g/dl (3.5-5.0); Albumin/Globulin Ratio 1.3 (1.1-1.8); Alkaline Phosphatase 193 U/L (38-126); Anion Gap 20.3 mEq/L (5-15); Aspartate Amino Transferase 23 U/L (17-59); Bilirubin,Total 0.8 mg/dl (0.2-1.3); Blood Urea Nitrogen 49 mg/dl (9-20); Calcium 9.6 mg/dl (8.4-10.2); Carbon Dioxide 17 mmol/L (22.0-30.0); Chloride 107 mmol/L (98-107); Chol/HDL Ratio 9.9 (1-3.5); Cholesterol 297 mg/dl (140-200); Estimated Glomerular Filt Rate 5 ml/min (>60); GFR (African American) 7 ML/MIN (>60); Globulin 3.2 g/dL (1.3-3.2); Glucose 177 mg/dl (74-100); HDL Cholesterol 30 mg/dl (40-60); Potassium 5.3 mmoL/L (3.5-5.1); Sodium 139 mmol/L (136-145); Total Protein,Serum 7.4 g/dl (6.3-8.2)
[2023-09-26 12:36] LABS: Direct LDL Cholesterol 64.13 mg/dL (100-129)
[2023-09-26 12:41] LABS: Triglycerides 966 mg/dl (30-150)
== END 2023-09-26 23:59 ==
LOC: LAB 11:44
PROVIDERS: PCP Family Medicine; Visit Provider Emergency Medicine
DX: E78.2 Mixed hyperlipidemia (principal)
CPT/HCPCS: 36415; 80053; 80061

== ENCOUNTER 2023-10-17 08:27 | Emergency (ER) | payer MEDICARE, MEDICAID, SELFPAY ==
[2023-10-17] VITALS (11 sets, daily range): BP systolic 56–187; BP diastolic 25–99; PULSE 64–87; RESP 15–18; TEMP 36.6–36.7; O2SAT 86–98; BMI 44.3
--- NOTE | 2023-10-17 08:49 | XR_ITS ---
FINAL REPORT CLINICAL HISTORY: SHORTNESS OF BREATH COMPARISON: 02/13/2022 FINDINGS: A single portable view of the chest was obtained. Right-sided deep line is present with the tip in the mid SVC. The heart size and pulmonary vascularity are within normal limits. The mediastinum is within normal limits. No acute pulmonary abnormality is identified. The bony thorax is intact. IMPRESSION: No active cardiopulmonary disease. Reviewed, Interpreted and Dictated by Scar Zimmer III, MD Transcribed by Judi Virgen Authenticated and [facility]
--- NOTE | 2023-10-17 08:51 | PC.NURSE ---
DR BOWMAN AT BEDSIDE
[2023-10-17 08:53] LABS: Coronavirus 19, PCR Not Detected (NotDetected); Influenza A, PCR Not Detected (NotDetected); Influenza B, PCR Not Detected (NotDetected)
--- NOTE | 2023-10-17 08:53 | CT_ITS ---
FINAL REPORT CLINICAL HISTORY: RLQ pain COMPARISON: 09/09/2022 FINDINGS: Axial CT images of the abdomen and pelvis were obtained without intravenous contrast. Coronal reformatted images were also obtained.This study was performed with techniques to keep radiation doses as low as reasonably achievable (ALARA). Individualized dose reduction techniques using automated exposure control or adjustment of mA and/or kV according to the patient's size were employed. Abdomen: The anterior abdomen is incompletely imaged secondary to patient body habitus. There are postoperative changes in the upper abdomen. There is no evidence of renal stone or hydronephrosis. Postcholecystectomy. The liver, spleen and pancreas have an unremarkable, unenhanced appearance. No mass or adenopathy is seen. No inflammatory process is identified. There are multiple venous collaterals in the left upper quadrant. There are mild vascular calcifications. There is an anterior abdominal wall hernia containing multiple nonobstructing bowel loops. Pelvis: Images of the pelvis reveal no evidence of ureteral dilation or ureteral stone.No mass or abnormal fluid collection is identified. There are postoperative changes in the lower lumbar spine. IMPRESSION: No renal or ureteral stone, or hydronephrosis. Multiple venous collaterals in the left upper quadrant. Anterior abdominal wall hernia containing multiple nonobstructed bowel loops. Reviewed, Interpreted and Dictated by Scar Zimmer III, MD Transcribed by Judi Virgen Authenticated and . [facility]
--- NOTE | 2023-10-17 08:54 | ED_ITS ---
Discharge Plan Disposition Patient Disposition: Xfer Other Condition: Fair Prescriptions Prescriptions: No Action mycophenolate mofetil 250 mg capsule 250 mg PO DAILY 30 Days Qty: 120 Patient Comments: insulin NPH isoph U-100 human 100 unit/mL (3 mL) insulin pen 50 unit SUB-Q DAILY PRN (Reason: diabetes) 14 Days Qty: 15 Patient Comments: ergocalciferol (vitamin D2) 1,250 mcg (50,000 unit) capsule 50,000 unit PO .COMPLEX 28 Days Patient Comments: Rx Instructions: 50,000 units PO 3xweek; doxazosin 8 mg tablet 8 mg PO DAILY carbamazepine 200 mg tablet 200 mg PO QHS entecavir 0.5 mg tablet 0.5 mg PO WEEKLY Patient Comments: Take 1 tablet (0.5 mg total) by mouth every 7 days. cholecalciferol (vitamin D3) 1,250 mcg (50,000 unit) capsule 1,250 mcg PO .TIW Patient Comments: take 1 Capsule by mouth 3 times weekly carvedilol 12.5 mg tablet 12.5 mg PO gabapentin 100 mg capsule 100 mg PO HS montelukast 10 mg tablet 10 mg PO DAILY folic acid 1 mg tablet 1 mg PO DAILY Patient Comments: TAKE ONE TABLET BY MOUTH EVERY DAY gabapentin 800 mg tablet 800 mg PO HS zolpidem [Ambien] 5 mg tablet 5 mg PO HS PRN (Reason: titration) Qty: 2 0RF Rx Instructions: bring to titration/sleep lab, notify pharmaceutical development technician you have it trazodone 50 mg tablet 50 mg PO HS MDD 50 mg po qhs PRN (Reason: Insomnia. anxiety) Qty: 30 3RF Rx Instructions: 50 mg, (1 tablet) an hour for bedtime. Do not drive after taking it. May cause drowsiness, sleepiness. hydralazine 100 mg tablet 100 mg PO BID Patient Comments: TAKE ONE TABLET THREE TIMES DAILY nifedipine 90 mg tablet extended release 24hr 90 mg PO DAILY Patient Comments: Take 1 tablet(s) by mouth twice daily calcium acetate(phosphat bind) 667 mg capsule 667 mg PO ONCE Patient Comments: TAKE 1 CAPSULE BY MOUTH THREE TIMES DAILY WITH MEALS AND 1 CAPSULE DAILY WITH A SNACK testosterone cypionate 200 mg/mL oil 200 mg SQ QMONTH Patient Comments: inject 1 Milliliter intramuscular inject once monthly cyclosporine 25 mg capsule 100 mg PO BID aspirin 81 MG tablet,delayed release (DR/EC) 81 mg PO DAILY cyclobenzaprine 10 MG tablet 10 mg PO Q8H PRN (Reason: Muscle Spasm) 10 Days Qty: 30 0RF pantoprazole 40 MG tablet,delayed release (DR/EC) 40 mg PO DAILY Referrals Follow up/Referrals: Edgar Fournier [Primary Care Provider] - See instructions Clinical Impressions Clinical Impression: Hyperkalemia, Need for acute hemodialysis, Shortness of breath Discharge ED Provider: Dharmesh Ellis General Adult HPI General Chief complaint: Shortness of Breath/Dyspnea Stated complaint: SOA Time Seen by Provider: 10/17/23 08:41 Mode of Arrival: EMS Source of Information: Patient Limitations: No Limitations Description of Symptoms (Recalled from ER Triage Doc. by RN): pt presents to ED via [facility] for shortness of air. pt reports symptoms began monday. pt reports a recent diagnosis of pna but finished abx approx 1 week ago. pt reports home dialysis monday,monday, , monday. pt had liver transplant 10/08/2017. pt 96% on RA upon arrival to ED. History of Present Illness HPI narrative: 48-year-old male with past medical history significant for JC, DM2, ESRD on HD Monday, Monday, , Monday, history of liver transplant, hypertension, cardiac catheterization, presents today for evaluation concerning diarrhea over the past couple of days. Diarrhea has been nonbloody. He does note that he was on Ozempic 2 months ago however this was discontinued. He restarted the medication on this past Monday. He also complains of shortness of breath and states that his right-sided chest pain is at his baseline. He does state that he was recently admitted to the hospital 2 weeks ago for pneumonia and has completed antibiotic treatment since that time. No further complaints. Related Data Home Medications Medication Instructions Recorded Confirmed insulin NPH isoph U-100 human 100 50 unit SUB-Q DAILY PRN diabetes 11/27/17 06/20/22 unit/mL (3 mL) subcutaneous pen 14 days ##15 mycophenolate mofetil 250 mg 250 mg PO DAILY Supplement 30 days 11/27/17 capsule ##120 aspirin 81 mg tablet,delayed 81 mg PO DAILY SUP 04/15/18 06/20/22 release calcium acetate(phosphat bind) 667 667 mg PO ONCE Supplement 02/20/20 06/20/22 mg capsule ergocalciferol (vitamin D2) 1,250 50,000 unit PO .COMPLEX Supplement 02/20/20 06/20/22 mcg (50,000 unit) capsule 28 days hydralazine 100 mg tablet 100 mg PO BID High blood pressure 02/20/20 06/20/22 nifedipine 90 mg tablet,extended 90 mg PO DAILY High blood pressure 02/20/20 06/20/22 release 24 hr carbamazepine 200 mg tablet 200 mg PO QHS unknown 03/25/20 06/20/22 doxazosin 8 mg tablet 8 mg PO DAILY unknown 03/25/20 06/20/22 cyclosporine 25 mg capsule 100 mg PO BID unknown 10/19/21 06/20/22 entecavir 0.5 mg tablet 0.5 mg PO WEEKLY unknown 10/19/21 06/20/22 testosterone cypionate 200 mg/mL 200 mg SQ QMONTH Supplement 10/19/21 06/20/22 intramuscular oil pantoprazole 40 mg tablet,delayed 40 mg PO DAILY GERD 02/13/22 06/20/22 release carvedilol 12.5 mg tablet 12.5 mg PO 04/06/22 06/20/22 cholecalciferol (vitamin D3) 1,250 1,250 mcg PO .TIW 04/06/22 06/20/22 mcg (50,000 unit) capsule folic acid 1 mg tablet 1 mg PO DAILY 05/31/22 06/20/22 gabapentin 100 mg capsule 100 mg PO HS 05/31/22 06/20/22 gabapentin 800 mg tablet 800 mg PO HS 05/31/22 06/20/22 montelukast 10 mg tablet 10 mg PO DAILY 05/31/22 06/20/22 Previous Rx's Medication Instructions Recorded cyclobenzaprine 10 mg tablet 10 mg PO Q8H PRN Muscle Spasm 10 04/22/20 days #30 tabs zolpidem 5 mg tablet (Ambien) 5 mg PO HS PRN titration #2 tabs 05/31/22 trazodone 50 mg tablet 50 mg PO HS PRN Insomnia. anxiety 06/20/22 #30 tabs Allergies Allergy/AdvReac Type Severity Reaction Status Date / Time codeine [CODEINE] Allergy Unknown Verified 06/20/22 11:44 [facility] Disclaimer: The information contained in this section may have been updated after the patient was seen, as this information can be updated by other users. Medical History (Updated 10/17/23 @ 11:50 by Dharmesh Ellis DO) Anxiety Arthritis Diabetes mellitus Hepatitis History of left heart catheterization History of stomach ulcers History of transesophageal echocardiography (SOCRATES) Hypertension Kidney disease Kidney stone Memory problem Mixed conductive and sensorineural hearing loss of both ears JC (obstructive sleep apnea) Renal failure Sleep apnea Surgical History (Updated 06/20/22 @ 12:59 by Nani Lares MD) History of back surgery History of colonoscopy History of esophagogastroduodenoscopy History of liver transplant History of right heart catheterization History of surgery on lower extremity Family History Other Asthma Diabetes Heart disease Hypertension Kidney disease Social History Smoking Status: Never smoker alcohol intake: never counseling provided: none substance use type: denies use current occupational status: disabled Travel in the last 8 weeks: None household members: family housing: house ROS Obtained: Yes All systems reviewed & no additional complaints except as documented Physical Exam General General appearance: alert and in no apparent distress Head Head exam: atraumatic and normocephalic Eye Eye exam: Present normal appearance, PERRL and EOMI ENT ENT exam: Present normal oropharynx and mucous membranes moist Neck Neck exam: Present full ROM; Absent meningismus Chest Chest inspection: Present other (Right chest port in place without surrounding erythema or tenderness.) Respiratory Respiratory exam: Absent respiratory distress, wheezes, stridor or accessory muscle use Cardiovascular Cardiovascular exam: Present normal rhythm and other (Left upper extremity fistula in place with palpable thrill.) Abdominal Exam Abdominal exam: Present soft and tenderness; Absent distention, guarding, rebound or rigidity Abdominal tenderness: Present RLQ Neurological Exam Neurological exam: Present alert, oriented X3 and CN II-XII intact; Absent motor sensory deficit Psychiatric Psychiatric exam: Present normal affect and normal mood Skin Skin exam: Present warm and dry Medical Decision Making Medical Records Medical records reviewed: Yes I reviewed the patient's medical records. Bello Inquiry Pt receiving controlled substance: No Bello was queried for this patient: No Vital Signs: 10/17/23 08:27 10/17/23 09:30 10/17/23 10:01 Temperature 97.8 F Temperature Source Oral Pulse Rate 79 64 Pulse Rate [Left Radial] 81 Respiratory Rate 15 Blood Pressure 143/71 H 151/67 H Blood Pressure [Right Arm] 187/99 H Blood Pressure Mean 95 95 Blood Pressure Mean [Right Arm] 128 02 Sat by Pulse Oximetry 96 94 L 94 L Oxygen Delivery Method Room Air Oxygen Flow Rate (LPM) 10/17/23 10:30 10/17/23 11:00 10/17/23 11:30 Temperature Temperature Source Pulse Rate 69 66 66 Pulse Rate [Left Radial] Respiratory Rate Blood Pressure 156/86 H 128/84 132/78 Blood Pressure [Right Arm] Blood Pressure Mean 98 Blood Pressure Mean [Right Arm] 02 Sat by Pulse Oximetry 91 L 94 L 93 L Oxygen Delivery Method Nasal Cannula Nasal Cannula Oxygen Flow Rate (LPM) 0.5 0.5 Lab Data Lab Results 10/17/23 08:30: WBC 5.7, RBC 3.71 L, Hgb 12.2 L, Hct 40.6 L, MCV 109.7 H, MCH 33.0 H, MCHC 30.1 L, RDW 16.4, Plt Count 286, MPV 8.6, Neut % (Auto) 66.3, Lymph % (Auto) 25.1, [place] % (Auto) 6.2, Eos % (Auto) 1.8, Baso % (Auto) 0.7, Neut # (Auto) 3.8, Lymph # (Auto) 1.4, [place] # (Auto) 0.4, Eos # (Auto) 0.1, Baso # (Auto) 0.0, Sodium 140, Potassium 7.5 H*, Chloride 108 H, Carbon Dioxide 17 L, Anion Gap 22.5 H, BUN 93 H, Creatinine 13.40 H, Estimated Creat Clear 7, Estimated GFR 4 L*, Est GFR ( Amer) 5 L*, Glucose 172 H, Calcium 8.6, Total Bilirubin 0.6, AST 20, ALT 15, Alkaline Phosphatase 131 H, Total Protein 7.3, Albumin 4.5, Globulin 2.8, Albumin/Globulin Ratio 1.6, Lipase 108 10/17/23 08:34: SARS-CoV-2 (PCR) Not detected, Influenza A Untype (PCR) Not detected, Influenza Type B (PCR) Not detected 10/17/23 08:30 10/17/23 08:30 Orders (Tests/Meds): ED MEDICATIONS Generic Name Dose Route Start Last Admin Trade Name Freberenice PRN Reason Stop Dose Admin Calcium Gluconate/Sodium Chloride 1 gm in 50 mls @ 50 mls/hr 10/17/23 11:15 10/17/23 11:27 Calcium Gluconate 1,000mg/50ml Nacl Premix IV 10/17/23 12:14 50 mls/hr ONCE ONE Administration Sodium Bicarbonate 25 meq 10/17/23 11:44 Sodium Bicarb 8.4% 50ml Syringe (Crash Cart) IV 10/17/23 11:45 ONCE ONE Sodium Chloride 10 ml 10/17/23 08:50 Sodium Chloride 0.9% 10ml Flush Syringe IV 11/16/23 08:49 NEEDED PRN Maintain IV Site Sodium Polystyrene Sulfonate 60 gm 10/17/23 11:36 Sodium Poly Sulfon 15gm/60ml Oral.Susp RC 10/18/23 11:35 Q6HP PRN Hyperkalemia Discontinued Medications Generic Name Dose Route Start Last Admin Trade Name Evelyne PRN Reason Stop Dose Admin Dextrose 50 ml 10/17/23 11:15 10/17/23 11:27 Dextrose 50% 50ml Syringe (Crash Cart) IV 10/17/23 11:16 50 ml ONCE ONE Administration Hydromorphone HCl 1 mg 10/17/23 08:53 10/17/23 08:58 Hydromorphone 2mg/Ml Syringe IV 10/17/23 08:54 1 mg ONCE ONE Administration Hydromorphone HCl 0.5 mg 10/17/23 11:33 10/17/23 11:48 Hydromorphone 2mg/Ml Syringe IV 10/17/23 11:34 0.5 mg ONCE ONE Administration Insulin Human Regular 5 unit 10/17/23 11:15 10/17/23 11:27 Insulin Human Regular 100 Units/Ml 10ml Vial IV 10/17/23 11:16 5 unit ONCE ONE Administration Ondansetron HCl 4 mg 10/17/23 09:54 10/17/23 09:57 Ondansetron 4mg/2ml Vial IV 10/17/23 09:55 4 mg ONCE ONE Administration Ondansetron HCl 4 mg 10/17/23 11:33 10/17/23 11:48 Ondansetron 4mg/2ml Vial IV 10/17/23 11:34 4 mg ONCE ONE Administration ORDERS Category Date Time Status CT abdomen pelvis wo con Stat Cat Scan 10/17/23 08:53 Completed XR chest portable Stat Exams 10/17/23 08:49 Completed Complete Blood Count Auto Diff Stat Lab 10/17/23 08:30 Completed Comprehensive Metabolic Panel Stat Lab 10/17/23 08:30 Completed Lipase Stat Lab 10/17/23 08:30 Completed Rapid PCR Covid and Flu A/B Stat Lab 10/17/23 08:34 Completed ECG Data Tracing #1: I reviewed this ECG and interpreted as documented below: EKG personally interpreted by me. Sinus rhythm with a rate of [address] elevations noted to suggest ischemia. HEART Score History (anamnesis): Slightly suspicious ECG: Non-specific disturbance Age: 45-65 years Risk factors: 3 or more risk factors Troponin: </= normal limit HEART Score: 4 Medical Decision Narrative: 48-year-old male with past medical history significant for JC, DM2, ESRD on HD Monday, Monday, , Monday, history of liver transplant, hypertension, cardiac catheterization, presents today for evaluation concerning diarrhea over the past couple of days. Diarrhea has been nonbloody. He does note that he was on Ozempic 2 months ago however this was discontinued. He restarted the medication on this past Monday. He also complains of shortness of breath and states that his right-sided chest pain is at his baseline. On assessment, the patient was hemodynamically stable and in no acute distress. Afebrile. Appropriate oxygenation on room air. Chest clear to auscultation bilaterally. Abdomen was soft and nondistended however was mildly tender in the right lower quadrant. He did have a right chest port in place with no surrounding erythema or tenderness to palpation. Left upper extremity fistula in place with palpable thrill. Otherwise exam vitals unremarkable differential diagnoses include but not limited to Ozempic side effect, gastritis, gastroenteritis, ACS, pneumonia, pleural effusion, among others. Patient's lab work today remarkable for a stable anemia with hemoglobin of 12.2. No elevation in WBC at 5.7. Notably his potassium was 7.5, anion gap of 22.5, BUN of 93, creatinine up from his baseline at 13.4. Alkaline phosphatase 131. Lipase within range. Negative swabs for COVID/influenza. Chest x-ray did not show any overt pulmonary edema or any acute cardiopulmonary disease processes on my informal interpretation. Radiology report confirmed. CT abdomen pelvis was also ordered and did not show any acute intra-abdominal abnormalities. It was noted that multiple venous collaterals were located in the left upper quadrant and there is also an anterior abdominal wall hernia with nonobstructed bowel loops. I did give patient calcium gluconate, insulin and 1 amp of D50 to assist with his hyperkalemia. He has stated that he feels weak and in the setting of his diarrhea he does not feel like he is able to perform his dialysis at home per usual. Given his derangements I did consult with nephrology at [facility], Dr. Millan, and discussed management. He agreed with current workup and management however did recommend Kayexalate at this time. Agreed to see patient upon arrival to [facility]. Also spoke with the hospitalist Dr. Hdez and discussed management and admission was accepted. He also recommended that patient receive sodium bicarbonate at this time which I have ordered. I discussed ED workup and current plan with patient and he was agreeable. He was subsequently transferred to [facility] for further management and need for hemodialysis. Critical Care Critical Care Time Critical Care Time: No
--- NOTE | 2023-10-17 08:55 | ECG_ITS ---
APPROVED REPORT Exam: Resting ECG HR:69 bpm ECG Measurements Heart Rate 69 AXES MD 181 P 78 QRSd 137 QRS 85 QT 408 T 55 QTc 426 Conclusion SINUS RHYTHM INTRAVENTRICULAR CONDUCTION DELAY [130+ ms QRS DURATION] POSSIBLE INFERIOR MYOCARDIAL INFARCTION , PROBABLY OLD [30 ms Q WAVE IN II/aVF] ABNORMAL ECG UNCONFIRMED REPORT Electronically signed by : CRISTINO MENON, 10/17/2023 10:48:26
--- NOTE | 2023-10-17 08:56 | PC.NURSE ---
RAD at BS
[2023-10-17 08:57] LABS: Basophils % 0.7 % (0.1-2.0); Eosinophils # 0.1 K/mm3 (0.0-0.4); Eosinophils % 1.8 % (0.1-12.0); Hematocrit 40.6 % (42.0-52.0); Hemoglobin 12.2 g/dL (14.1-18.0); Lymphocytes # 1.4 K/mm3 (0.7-4.5); Lymphocytes % 25.1 % (10-50); Mean Corpuscular HGB Conc 30.1 g/dL (31.8-35.4); Mean Corpuscular Volume 109.7 fl (80-94); Mean Platelet Volume 8.6 fl (7.4-10.4); Monocytes # 0.4 K/mm3 (0.1-1.0); Monocytes % 6.2 % (1.7-9.3); Neutrophils # 3.8 K/mm3 (1.8-7.8); Neutrophils % 66.3 % (37.0-80.0); Platelet Count 286 K/mm3 (142-424); Red Blood Count 3.71 M/mm3 (4.60-6.20); Red Cell Distribution Width 16.4 % (11.5-17.5); White Blood Count 5.7 K/mm3 (4.8-10.8)
[2023-10-17] MEDS: HYDROMORPHONE 2MG/ML SYRINGE 1 MG IV (08:58)
--- NOTE | 2023-10-17 09:02 | PC.NURSE ---
PT TO CT
[2023-10-17 09:06] LABS: Alanine Aminotransferase 15 U/L (12-78); Albumin Level 4.5 g/dl (3.5-5.0); Albumin/Globulin Ratio 1.6 (1.1-1.8); Alkaline Phosphatase 131 U/L (38-126); Anion Gap 22.5 mEq/L (5-15); Aspartate Amino Transferase 20 U/L (17-59); Bilirubin,Total 0.6 mg/dl (0.2-1.3); Calcium 8.6 mg/dl (8.4-10.2); Carbon Dioxide 17 mmol/L (22.0-30.0); Chloride 108 mmol/L (98-107); Creatinine Clearance Estimated 7 mL/min (50-200); Estimated Glomerular Filt Rate 4 ml/min (>60); GFR (African American) 5 ML/MIN (>60); Globulin 2.8 g/dL (1.3-3.2); Glucose 172 mg/dl (74-100); Sodium 140 mmol/L (136-145); Total Protein,Serum 7.3 g/dl (6.3-8.2)
--- NOTE | 2023-10-17 09:37 | PC.NURSE ---
CRITICAL K+ 7.5 BUN 93, RECEIVED FROM DONALDO IN LAB. PT NAME AND R/V. DR BOWMAN NOTIFIED
[2023-10-17 09:39] LABS: Blood Urea Nitrogen 93 mg/dl (9-20); Potassium 7.5 mmoL/L (3.5-5.1)
--- NOTE | 2023-10-17 09:39 | PC.NURSE ---
LAB CALLED WITH CRITICAL CREAT 13.4 DR BOWMAN AWARE
--- NOTE | 2023-10-17 09:51 | PC.NURSE ---
rounded on the pt at this time. requesting something for nausea, informed MD. see MAR for orders.
[2023-10-17 09:52] LABS: Lipase 108 U/L (23-300)
[2023-10-17] MEDS: ONDANSETRON 4MG/2ML VIAL 4 MG IV ×2 (09:57→11:48)
--- NOTE | 2023-10-17 11:08 | PC.NURSE ---
Rounded on Pt to see if they had any needs. pt was asleep so did not wake him up and bother him
--- NOTE | 2023-10-17 11:22 | PC.NURSE ---
Just talked to [facility] about transferring this pt. [facility] advised that they would call us back and speak Doc to Doc
[2023-10-17] MEDS: CALCIUM GLUC IN NACL, ISO-OSM 1 GM/50 ML BAG IV (11:27)
[2023-10-17] MEDS: DEXTROSE 50% 50ML SYRINGE (CRASH CART) 50 ML IV (11:27)
[2023-10-17] MEDS: INSULIN HUMAN REGULAR 100 UNITS/ML 10ML VIAL 5 UNIT IV (11:27)
--- NOTE | 2023-10-17 11:33 | PC.NURSE ---
[facility] called back and was speaking with ER Doc at this time
[2023-10-17] MEDS: HYDROMORPHONE 2MG/ML SYRINGE 0.5 MG IV (11:48)
--- NOTE | 2023-10-17 12:05 | PC.NURSE ---
report called to yaa at [facility].
--- NOTE | 2023-10-17 12:24 | PC.NURSE ---
pt refused kayexalate administration
[2023-10-17] MEDS: SODIUM BICARB 8.4% 50ML SYRINGE (CRASH CART) 25 MEQ IV (12:32)
[2023-10-17] MEDS: MIDAZOLAM HCL 1MG/1ML 5ML VIAL 1 MG IV (13:49)
== END 2023-10-17 13:56 | disposition other institution (70) ==
PROVIDERS: Emergency Provider Emergency Medicine; PCP Family Medicine
DX: E87.5 Hyperkalemia (principal); R07.89 Other chest pain; R06.02 Shortness of breath; E11.22 Type 2 diabetes mellitus with diabetic chronic kidney disease; N18.6 End stage renal disease; I12.0 Hypertensive chronic kidney disease with stage 5 chronic kidney disease or end stage renal disease; Z94.4 Liver transplant status; Z95.5 Presence of coronary angioplasty implant and graft; Z99.2 Dependence on renal dialysis
CPT/HCPCS: 71045; 74176; 80053; 83690; 85025; 87636; 93005; 96365; 96366; 96367; 96375; 96376; 99285; J2405

== ENCOUNTER 2024-02-02 14:12 | Emergency (ER) | payer MEDICARE, MEDICAID, SELFPAY ==
[2024-02-02 14:16] VITALS: BP 180/120; PULSE 100; RESP 20; TEMP 36.6; O2SAT 96; BMI 44.3
--- NOTE | 2024-02-02 14:23 | PC.NURSE ---
DR JOSEPH AT BEDSIDE
[2024-02-02 14:30] VITALS: BP 185/113; PULSE 95; O2SAT 97
--- NOTE | 2024-02-02 14:30 | XR_ITS ---
FINAL REPORT CLINICAL HISTORY: right heel pain COMPARISON: None FINDINGS: RIGHT FOOT: Three views show no evidence of acute displaced fracture or dislocation of the visualized bony architecture. Osteopenia is present. No bony erosions are identified. The joint spaces appear normal. No calcaneal spurs are seen. IMPRESSION: Osteopenia. No acute bony abnormality identified. Reviewed, Interpreted and Dictated by Kim Jimenez MD Transcribed by Eleanor Kumar Authenticated and [facility]
[2024-02-02] MEDS: predniSONE 20MG TAB 40 MG PO (14:56)
[2024-02-02 15:00] VITALS: BP 164/93; PULSE 73; O2SAT 95
--- NOTE | 2024-02-02 15:11 | ED_ITS ---
Discharge Plan Disposition Patient Disposition: Home, Self-Care Prescriptions Prescriptions: New prednisone 20 mg tablet 40 mg PO DAILY 4 Days Qty: 8 0RF No Action mycophenolate mofetil 250 mg capsule 250 mg PO DAILY 30 Days Qty: 120 Patient Comments: ergocalciferol (vitamin D2) 1,250 mcg (50,000 unit) capsule 50,000 unit PO .COMPLEX 28 Days Patient Comments: Rx Instructions: 50,000 units PO 3xweek; doxazosin 8 mg tablet 8 mg PO DAILY carbamazepine 200 mg tablet 200 mg PO QHS entecavir 0.5 mg tablet 0.5 mg PO WEEKLY Patient Comments: Take 1 tablet (0.5 mg total) by mouth every 7 days. cholecalciferol (vitamin D3) 1,250 mcg (50,000 unit) capsule 1,250 mcg PO .TIW Patient Comments: take 1 Capsule by mouth 3 times weekly montelukast 10 mg tablet 10 mg PO DAILY folic acid 1 mg tablet 1 mg PO DAILY Patient Comments: TAKE ONE TABLET BY MOUTH EVERY DAY gabapentin 800 mg tablet 800 mg PO HS insulin glargine [Lantus Solostar U-100 Insulin] 100 unit/mL (3 mL) insulin pen SQ azelastine 137 mcg (0.1 %) aerosol,spray 1 spray intranasal BID Qty: 30 2RF Rx Instructions: administer into each nostril ofloxacin 0.3 % drops 2 drp otic (ear) BID 10 Days Qty: 5 2RF hydralazine 100 mg tablet 100 mg PO BID Patient Comments: TAKE ONE TABLET THREE TIMES DAILY nifedipine 90 mg tablet extended release 24hr 90 mg PO DAILY Patient Comments: Take 1 tablet(s) by mouth twice daily calcium acetate(phosphat bind) 667 mg capsule 667 mg PO ONCE Patient Comments: TAKE 1 CAPSULE BY MOUTH THREE TIMES DAILY WITH MEALS AND 1 CAPSULE DAILY WITH A SNACK testosterone cypionate 200 mg/mL oil 200 mg SQ QMONTH Patient Comments: inject 1 Milliliter intramuscular inject once monthly cyclosporine 25 mg capsule 100 mg PO BID carvedilol 25 mg tablet 25 mg PO ONCE aspirin 81 MG tablet,delayed release (DR/EC) 81 mg PO DAILY cyclobenzaprine 10 MG tablet 10 mg PO Q8H PRN (Reason: Muscle Spasm) 10 Days Qty: 30 0RF pantoprazole 40 MG tablet,delayed release (DR/EC) 40 mg PO DAILY Referrals Follow up/Referrals: Edgar Fournier [Primary Care Provider] - See instructions Leslie Fenton DPM [Staff Physician] - See instructions Activity Restrictions/Add. Instructions Additional Instructions/Restrictions: Call your family doctor to establish care for this visit to the emergency department and schedule follow-up within 48 hours to ensure improvement. If you have any worsening of your condition or any other concerning signs or symptoms, return to the emergency department or your primary care doctor for further evaluation. Prednisone each morning for 4 more days. Clinical Impressions Clinical Impression: Pain in right foot Discharge ED Provider: Thomas Sotomayor General Adult HPI General Chief complaint: Extremity Problem,Nontraumatic Stated complaint: Pain in R foot going up leg Time Seen by Provider: 02/02/24 14:19 Mode of Arrival: Wheelchair Source of Information: Patient Limitations: No Limitations Description of Symptoms (Recalled from ER Triage Doc. by RN): r heel pain History of Present Illness HPI narrative: Please note that above description of symptoms, in this electronic medical record under categorization of recalled from ER triage doctor by RN are reflective of an initial nursing assessment, however, is not reflective of my full history and physical exam that was personally taken and clarified. Consequentially, this preceding description of symptoms, which may include the patient's categorized chief complaint in the EMR, do not reflect my personal clinical impression, and the ultimate description of history of present illness and patient stated complaints should be deferred to this section of the note. Unless stated otherwise or congruent with this section of the note, additional signs, symptoms, or incongruence should be interpreted as inaccurate with my clinical impression. Related Data Home Medications Medication Instructions Recorded Confirmed mycophenolate mofetil 250 mg 250 mg PO DAILY Supplement 30 days 11/27/17 01/15/24 capsule ##120 aspirin 81 mg tablet,delayed 81 mg PO DAILY SUP 04/15/18 01/15/24 release calcium acetate(phosphat bind) 667 667 mg PO ONCE Supplement 02/20/20 01/15/24 mg capsule ergocalciferol (vitamin D2) 1,250 50,000 unit PO .COMPLEX Supplement 02/20/20 01/15/24 mcg (50,000 unit) capsule 28 days hydralazine 100 mg tablet 100 mg PO BID High blood pressure 02/20/20 01/15/24 nifedipine 90 mg tablet,extended 90 mg PO DAILY High blood pressure 02/20/20 01/15/24 release 24 hr carbamazepine 200 mg tablet 200 mg PO QHS unknown 03/25/20 01/15/24 doxazosin 8 mg tablet 8 mg PO DAILY unknown 03/25/20 01/15/24 cyclosporine 25 mg capsule 100 mg PO BID unknown 10/19/21 01/15/24 entecavir 0.5 mg tablet 0.5 mg PO WEEKLY unknown 10/19/21 01/15/24 testosterone cypionate 200 mg/mL 200 mg SQ QMONTH Supplement 10/19/21 01/15/24 intramuscular oil pantoprazole 40 mg tablet,delayed 40 mg PO DAILY GERD 02/13/22 01/15/24 release cholecalciferol (vitamin D3) 1,250 1,250 mcg PO .TIW 04/06/22 01/15/24 mcg (50,000 unit) capsule folic acid 1 mg tablet 1 mg PO DAILY 05/31/22 01/15/24 gabapentin 800 mg tablet 800 mg PO HS 05/31/22 01/15/24 montelukast 10 mg tablet 10 mg PO DAILY 05/31/22 01/15/24 insulin glargine 100 unit/mL (3 unit SQ 01/01/24 01/15/24 mL) subcutaneous pen (Lantus Solostar U-100 Insulin) carvedilol 25 mg tablet 25 mg PO ONCE 01/15/24 01/15/24 Previous Rx's Medication Instructions Recorded cyclobenzaprine 10 mg tablet 10 mg PO Q8H PRN Muscle Spasm 10 04/22/20 days #30 tabs azelastine 137 mcg (0.1 %) nasal 1 spray intranasal BID #30 mL 01/01/24 spray aerosol ofloxacin 0.3 % ear drops 2 drp otic (ear) BID 10 days #5 mL 01/02/24 prednisone 20 mg tablet 40 mg (2 x 20 mg) PO DAILY 4 days 02/02/24 #8 tabs Allergies Allergy/AdvReac Type Severity Reaction Status Date / Time codeine [CODEINE] Allergy Unknown Verified 01/15/24 10:28 [facility] Disclaimer: The information contained in this section may have been updated after the patient was seen, as this information can be updated by other users. Medical History Retraction of tympanic membrane of left ear Chronic eustachian tube dysfunction Hearing loss in left ear History of left heart catheterization History of transesophageal echocardiography ([facility]) JC (obstructive sleep apnea) Severe JC and nocturnal hypoxemia. Unable to tolerate AutoPap, CPAP, auto BiPAP. He did well on BiPAP during previous hospitalization at and during recent titration at [facility]. Kidney stone Anxiety He has a prescription for Xanax Mixed conductive and sensorineural hearing loss of both ears Arthritis Diabetes mellitus Memory problem Renal failure Hepatitis History of stomach ulcers Hypertension Sleep apnea Kidney disease Surgical History History of right heart catheterization History of esophagogastroduodenoscopy History of colonoscopy History of liver transplant History of back surgery History of surgery on lower extremity Family History Other Asthma Diabetes Heart disease Hypertension Kidney disease Social History Smoking Status: Never smoker alcohol intake: never counseling provided: none substance use type: denies use current occupational status: disabled Travel in the last 8 weeks: None household members: family housing: house ROS Obtained: Yes All systems reviewed & no additional complaints except as documented Physical Exam General General appearance: alert and in no apparent distress Head Head exam: atraumatic and normocephalic Eye Eye exam: Present normal appearance, PERRL and EOMI ENT ENT exam: Present mucous membranes moist Neck Neck exam: Present normal inspection, full ROM and trachea midline Respiratory Respiratory exam: Absent respiratory distress, wheezes, stridor, accessory muscle use or prolonged expiratory phase Cardiovascular Cardiovascular exam: Present normal rhythm Abdominal Exam Abdominal exam: Present soft; Absent distention, tenderness, guarding, rebound or rigidity Extremities Exam Extremities exam: Present other (Tenderness with application pressure at the heel. 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 Bello Inquiry Pt receiving controlled substance: No Bello was queried for this patient: No Vital Signs: 02/02/24 14:16 02/02/24 14:30 02/02/24 15:00 Temperature 98 F Temperature Source Oral Pulse Rate 95 H 73 Pulse Rate [Right] 100 H Respiratory Rate 20 Blood Pressure 185/113 H 164/93 H Blood Pressure [Right Arm] 180/120 H Blood Pressure Mean [Right Arm] 140 02 Sat by Pulse Oximetry 96 97 95 Oxygen Delivery Method Room Air Room Air Room Air 02/02/24 15:21 Temperature 98.0 F Temperature Source Pulse Rate 75 Pulse Rate [Right] Respiratory Rate 13 Blood Pressure 164/93 H Blood Pressure [Right Arm] Blood Pressure Mean [Right Arm] 02 Sat by Pulse Oximetry Oxygen Delivery Method Orders (Tests/Meds): ED MEDICATIONS Discontinued Medications Generic Name Dose Route Start Last Admin Trade Name Evelyne PRN Reason Stop Dose Admin Prednisone 40 mg 02/02/24 14:30 02/02/24 14:56 Prednisone 20mg Tab PO 02/02/24 14:31 40 mg ONCE ONE Administration ORDERS Category Date Time Status Foot XR right minimum 3 views [XR foot RT min 3V] Stat Exams 02/02/24 14:30 Completed Medical Decision Narrative: 48-year-old male with history of liver transplant secondary to NAFLD, kidney failure secondary to antirejection meds currently on 3 times weekly dialysis via left subclavian port, hypertension, hyperlipidemia, JC presenting with right heel pain. Patient states that he has had intermittent foot pain over the past couple of weeks. Right greater than left. Left foot went away, right foot started flaring up yesterday, 01/31. Worse when he bears weight. Better when he takes pressure off of it. 10 out of 10 when he puts pain on it. It is a stabbing, shooting pain that starts in his heel and goes up toward his hip. Never injured the foot, never been diagnosed with bone spurs or anything else. No rash, fevers, chills, or any other symptoms. Differential includes bone spur, plantar fasciitis, fracture, sprain, strain, among others. Patient given 40 mg p.o. prednisone. And pain interpretation of workup demonstrates no bony abnormalities or bone spurs on foot x-rays. Because of this, I feel patient is appropriate for home-going with outpatient podiatry follow-up and prednisone burst. Is recommended that he follows his sugars over the next couple of days, he voiced his understanding. Because patient at baseline without signs or symptoms of clinical decompensation, deemed appropriate for discharge. Results were relayed to patient who voiced understanding and were agreeable to outpatient management and follow up. I discussed my clinical impression with patient and answered all questions. At this time, the evidence for any other entities in the differential is insufficient to warrant any further testing or ED observation. This was explained as well. Advisory was given that persistent or worsening symptoms require further evaluation. I confirmed the understanding of this discussion. Sand Filler disclaimer Much of this encounter note is an electronic hydrochloric area supervisor spoken language to printed text. Electronic hydrochloric area supervisor of the spoken language may permit errors. Although I have reviewed the note, some errors may still exist. Critical Care Critical Care Time Critical Care Time: No
[2024-02-02 15:21] VITALS: BP 164/93; PULSE 75; RESP 13; TEMP 36.7
== END 2024-02-02 15:22 | disposition home or self-care (01) ==
PROVIDERS: Emergency Provider Emergency Medicine; PCP Family Medicine
DX: M79.671 Pain in right foot (principal)
CPT/HCPCS: 73630; 99283

== ENCOUNTER 2024-03-01 11:36 | Outpatient (CLI) | payer MEDICARE, MEDICAID, SELFPAY ==
[2024-03-01 12:25] LABS: MANUAL DIFFERENTIAL MANUAL DIFFERENTIAL (MANUAL DIFF)
[2024-03-01 12:49] LABS: Basophils % 0.8 % (0.1-2.0); Eosinophils # 0.1 K/mm3 (0.0-0.4); Eosinophils % 1.5 % (0.1-12.0); Hemoglobin 12.1 g/dL (14.1-18.0); Lymphocytes # 1.3 K/mm3 (0.7-4.5); Lymphocytes % 27.5 % (10-50); Mean Corpuscular HGB Conc 31.8 g/dL (31.8-35.4); Mean Corpuscular Hemoglobin 31.6 pg (27.0-31.2); Mean Corpuscular Volume 99.5 fl (80-94); Mean Platelet Volume 8.4 fl (7.4-10.4); Monocytes # 0.3 K/mm3 (0.1-1.0); Monocytes % 6.9 % (1.7-9.3); Neutrophils % 63.3 % (37.0-80.0); Platelet Count 294 K/mm3 (142-424); Red Blood Count 3.82 M/mm3 (4.60-6.20); Red Cell Distribution Width 16.2 % (11.5-17.5); White Blood Count 4.7 K/mm3 (4.8-10.8)
[2024-03-01 13:02] LABS: Chloride 107 mmol/L (98-107); Potassium 5.7 mmoL/L (3.5-5.1); Sodium 139 mmol/L (136-145)
[2024-03-01 13:04] LABS: Blood Urea Nitrogen 73 mg/dl (9-20); Estimated Glomerular Filt Rate 4 ml/min (>60); GFR (African American) 5 ML/MIN (>60)
[2024-03-01 13:05] LABS: Alanine Aminotransferase 13 U/L (12-78); Albumin Level 4.3 g/dl (3.5-5.0); Alkaline Phosphatase 173 U/L (38-126); Anion Gap 17.7 mEq/L (5-15); Aspartate Amino Transferase 17 U/L (17-59); Bilirubin,Direct 0.3 mg/dl (0.0-0.4); Bilirubin,Indirect 0.1 mg/dL (0.0-0.9); Bilirubin,Total 0.4 mg/dl (0.2-1.3); Bilirubin,Unconjugated 0.1 mg/dL (0.0-1.1); Carbon Dioxide 20 mmol/L (22.0-30.0); Phosphorous 8.7 mg/dl (2.5-4.5); Total Protein,Serum 7.2 g/dl (6.3-8.2)
[2024-03-01 13:06] LABS: Calcium 9.4 mg/dl (8.4-10.2); Glucose 129 mg/dl (74-100)
[2024-03-01 13:27] LABS: Eosinophils % 2 % (0-3); Lymphocytes % 32 % (10-50); Monocytes % 8 % (2-9); Neutrophils % 58 % (42-76); Nucleated Red Blood Cells 1; Total Cells Counted 100
[2024-03-01 13:28] LABS: Platelet Estimate Normal; Stomatocytes 1+
[2024-03-02 10:23] LABS: Testosterone,Total 309 ng/dL (264-916)
[2024-04-01 15:21] LABS: Cyclosporine 49
== END 2024-03-01 23:59 | disposition home or self-care (01) ==
PROVIDERS: PCP Family Medicine; Visit Provider Family Medicine
DX: Z94.4 Liver transplant status (principal); E29.1 Testicular hypofunction; Z51.81 Encounter for therapeutic drug level monitoring
CPT/HCPCS: 36415; 80069; 80076; 80158; 84403; 85007; 85014; 85018; 85048; 85049

== ENCOUNTER 2024-04-25 18:57 | Emergency (ER) | payer MEDICARE, MEDICAID, SELFPAY ==
[2024-04-25] VITALS (7 sets, daily range): BP systolic 111–154; BP diastolic 67–106; PULSE 88–104; RESP 20; TEMP 37; O2SAT 89–97; BMI 44.7
--- OUTSIDE RECORDS SUMMARY | 2024-04-25 19:07 | XMS_ITS | Continuity of Care Document ---
Author Organization [facility] Phone Care Team Providers Care Splicer Helper Name Role Phone REAL, KRISTIE E Admitting Unavailable REAL, KRISTIE E Primary Attending Unavailable JOHANNY GARCIA Primary Care REAL, KRISTIE E Unavailable Unavailable ALLERGIES AND ADVERSE REACTIONS ALLERGIES AND ADVERSE REACTIONS Code System Allergy Substance Adverse Reaction Date Reaction (Severity) Comment Status Reported By Updated By LATEX (Free Text Allergy) Adverse reaction to substance u active [id number] on April 17, 2024 2:48:39 AM UT 2670 RXNorm CODEINE Adverse reaction to substance u active [id number] on April 17, 2024 2:48:39 AM [facility] FAMILY HISTORY RELATION: Father Status: Cause of : Malignant neoplastic disease Age at : 54 SNOMED-CT Diagnosis Age At Onset Information not available RELATION: Father Status: Cause of : Malignant tumor of esophagus Age at : Unknown SNOMED-CT Diagnosis Age At Onset Information not available RELATION: Mother Status: LIVING SNOMED-CT Diagnosis Age At Onset Information not available RELATION: Mother Status: LIVING SNOMED-CT Diagnosis Age At Onset [id number] Corrosion of esophagus RESULTS Patient: AYO Oviedo JR Date of : 1975 Medical Record Number: [id number] LABORATORY RESULTS ORDER 100: CBC AUTO W DIFF ( LOINC: 74983-7) ORDER DATE: April 17, 2024 3:17:00 AM UT Specimen Source: Whole Blood Specimen Type: Whole blood s ample PERFORMING LAB: [address] [id number] Result Comment: Final Result Date: April 17, 2024 4:13:00 AM UT (TECH: SLB) LOINC TEST FLAG RESULT REFERENCE RANGE UPDA ESPERANZA BY 6690-2 Leukocytes [#/volume] in Blood by Automated count N 4.6 10^3/uL 4.5 10^3/uL - 11.5 10^3/uL April 17, 2024 4:13:00 AM UTC (TECH: [employer]) 789-8 Erythrocytes [#/volume] in Blood by Automated count L 3.14 10^6/uL 4.25 10^6/uL - 5.57 10^6/uL April 17, 2024 4:13:00 AM UTC (TECH: SLB) 718-7 Hemoglobin [Mass/volume] in Blood L 9.9 g/dL 13.5 g/dL - 17.2 g/dL April 17, 2024 4:13:00 AM UTC (TECH: SLB) 07399-8 Hematocrit [Volume Fraction] of Blood L 31.6 % 42.0 % - 52.0 % April 17, 2024 4:13:00 AM UTC (TECH: SLB) 787-2 Erythrocyte mean corpuscular volume [Entitic volume] by Automated count H 100.6 fl 80 fl - 95 fl April 17, 2024 4:13:00 AM UTC (TECH: [employer]) 60534-9 Erythrocyte mean corpuscular hemoglobin [Entitic mass] in Blood from Fetus by Automated count N 31.5 pg 27.0 pg - 34.0 pg April 17, 2024 4:13:00 AM UTC (TECH: [employer]) 68791-7 Erythrocyte mean corpuscular hemoglobin concentration [Mass/volume] in Blood from Fetus by Automated count L 31.3 g/dL 32.0 g/dL - 36.0 g/dL April 17, 2024 4:13:00 AM UTC (TECH: [employer]) 56044-2 Platelets [#/volume] in Blood N 227 10^3/uL 150 10^3/uL - 450 10^3/uL April 17, 2024 4:13:00 AM UTC (TECH: [employer]) 16738-9 Erythrocyte distribution width [Ratio] H 15.6 % 12.3 % - 15.1 % April 17, 2024 4:13:00 AM UTC (TECH: [employer]) 42671-9 Platelet mean volume [Entitic volume] in Blood by Automated count N 9.2 fl 7.4 fl - 10.4 fl April 17, 2024 4:13:00 AM UTC (TECH: SLB) 19082-0 Granulocytes/100 leukocytes in Blood by Automated count N 52.3 % 40 % - 75 % April 17, 2024 4:13:00 AM UTC (TECH: SLB) 736-9 Lymphocytes/100 leukocytes in Blood by Automated count N 35.9 % 15 % - 57 % April 17, 2024 4:13:00 AM UTC (TECH: SLB) 5905-5 Monocytes/100 leukocytes in Blood by Automated count N 6.5 % 4.0 % - 12.0 % April 17, 2024 4:13:00 AM UTC (TECH: SLB) 713-8 Eosinophils/100 leukocytes in Blood by Automated count N 1.9 % 0.0 % - 4.0 % April 17, 2024 4:13:00 AM UTC (TECH: SLB) 706-2 Basophils/100 leukocytes in Blood by Automated count N 0.2 % 0.0 % - 1.0 % April 17, 2024 4:13:00 AM UTC (TECH: SLB) 64596-5 Immature granulocytes [#/volume] in Blood H 3.2 % 0.0 % - 0.8 % April 17, 2024 4:13:00 AM UTC (TECH: SLB) 02497-9 Granulocytes [#/volume] in Blood by Automated count N 2.41 10^3/uL April 17, 2024 4:13:00 AM UTC (TECH: SLB) 731-0 Lymphocytes [#/volume] in Blood by Automated count N 1.66 10^3/uL April 17, 2024 4:13:00 AM UTC (TECH: SLB) 742-7 Monocytes [#/volume] in Blood by Automated count N 0.30 10^3/uL April 17, 2024 4:13:00 AM UTC (TECH: SLB) 711-2 Eosinophils [#/volume] in Blood by Automated count N 0.09 10^3/uL April 17, 2024 4:13:00 AM UTC (TECH: SLB) 704-7 Basophils [#/volume] in Blood by Automated count N 0.01 10^3/uL April 17, 2024 4:13:00 AM UTC (TECH: SLB) 91043-4 Immature granulocytes [#/volume] in Blood N 0.15 10^3/uL April 17, 2024 4:13:00 AM UT (TECH: [employer]) 19263-4 Manual differential performed [Presence] in Blood N NO April 17, 2024 4:13:00 AM UT (TECH: SLB) ORDER 200: COMP METABOLIC PA JACQUELIN (LOINC: 29970-7) ORDER DATE: April 17, 2024 3:17:00 AM UT Specimen Source: Serum/Plasm a Specimen Type: Acellular blo od (serum or plasma) specimen PERFORMING LAB: [address] [id number] Result Comment: Final Result Date: April 17, 2024 4:46:00 AM UT (TECH: SLB) LOINC TEST FLAG RESULT REFERENCE RANGE UPDA ESPERANZA BY 2951-2 Sodium [Moles/volume ] in Serum or Plasma N 139 mmol/L 136 mmol/L - 145 mmol/L April 17, 2024 4:46:00 AM UT (TECH: SLB) 2823-3 Potassium [Moles/vol ume] in Serum or Plasma HH 6.6 mmol/L 3.5 mmol/L - 5.1 mmol/L April 17, 2024 4:46:00 AM UT (TECH: SLB) 2075-0 Chloride [Moles/volu me] in Serum or Plasma N 105 mmol/L 98 mmol/L - 107 mmol/L April 17, 2024 4:46:00 AM UT (TECH: SLB) 8-9 Carbon dioxide, tota l [Moles/volume] in Serum or Plasma L 20 mmol/L 21 mmol/L - 32 mmol/L April 17, 2024 4:46:00 AM UT (TECH: SLB) 57416-7 Anion gap 3 in Serum or Plasma N 14.0 April 17 4:46:00 AM UT (TECH: SLB) 2345-7 Glucose [Mass/volume ] in Serum or Plasma H 155 mg/dL 70 mg/dL - 110 mg/dL April 17, 2024 4:46:00 AM UT (TECH: SLB) 3094-0 Urea nitrogen [Mass/volume] in Serum or Plasma H 91 mg/dL 7 mg/dL - 18 mg/dL April 17, 2024 4:46:00 AM UTC (TECH: SLB) 2160-0 Creatinine [Mass/vol ume] in Serum or Plasma H 12.0 mg/dL 0.8 mg/dL - 1.3 mg/dL April 17, 2024 4:46:00 AM [facility] ([employer]: [employer]) 3097-3 Urea nitrogen/Creati nine [Mass Ratio] in Serum or Plasma L 7.6 Ratio 9 Ratio - 21 Ratio April 17, 2024 4:46:00 AM [facility] ([employer]: [employer]) 36836-7 Glomerular filtratio n rate/1.73 sq M.predicted by Creatinine-based formula (MDRD) L 5 mL/min >60 April 17 4:46:00 AM [facility] ([employer]: [employer]) 2885-2 Protein [Mass/volume ] in Serum or Plasma N 7.3 g/dL 6.4 g/dL - 8.2 g/dL April 17, 2024 4:46:00 AM [facility] ([employer]: [employer]) 1751-7 Albumin [Mass/volume ] in Serum or Plasma N 3.5 g/dL 3.4 g/dL - 5.0 g/dL April 17, 2024 4:46:00 AM [facility] ([employer]) 46751-1 Calcium [Mass/volume ] in Serum or Plasma L 7.8 mg/dL 8.5 mg/dL - 10.1 mg/dL April 17, 2024 4:46:00 AM [facility] ([employer]: [employer]) 95073-6 Calcium [Mass/volume ] corrected for total protein in Serum or Plasma L 8.2 mg/dL 8.5 mg/dL - 10.1 mg/dL April 17, 2024 4:46:00 AM [facility] ([employer]: [employer]) 1975-2 Bilirubin.total [Mass/volume] in Serum or Plasma N 0.5 mg/dL 0.4 mg/dL - 1.5 mg/dL April 17, 2024 4:46:00 AM [facility] (TECH: [employer]) 1920-8 Aspartate aminotransferase [Enzymatic activity/volume] in Serum or Plasma L 11 U/L 15 U/L - 37 U/L April 17 4:46:00 AM [facility] (TECH: [employer]) 1742-6 Alanine aminotransfe rase [Enzymatic activity/volume] in Serum or Plasma L 11 U/L 12 U/L - 78 U/L April 17 4:46:00 AM [facility] (TECH: SLB) 6768-6 Alkaline phosphatase [Enzymatic activity/volume] in Serum or Plasma H 236 U/L 50 U/L - 170 U/L April 17 4:46:00 AM [facility] (TECH: SLB) LABORATORY NARRATIVE RESULTS Information is not available RADIOLOGY RESULTS ORDER 400: CHEST SINGLE VIEW /PORTABLE (LOINC: 57926-7) ORDER DATE: April 17, 2024 3:17:00 AM [facility] PERFORMING LAB: [address] [id number] Final Result Date: April 17, 2024 4:21:[address] [place] [address] Name: LEONCIO ROLLINS Exam Date: 04/16/2024 : 1975 Age 49 years Gender: M Physician: KRISTIE NOBLE Facility: [facility] Facility HSV: Outpatient Exam: CHEST SINGLE VIEW/PORTABLE FINAL REPORT TECHNIQUE: null CLINICAL HISTORY: dialysis cath will flush but not draw back,, flushed at home with heparin, and attempted to draw without success, went to clinic and they put in cath lars, and sent home, said to wait 2 hours, attempted to home dialyze himself and machine started beeping, saying blood clots COMPARISON: null FINDINGS: CHEST X-RAY FRONTAL VIEW COMPARISON: None. FINDINGS: A single frontal view of the chest was performed. Lordotic technique is noted. A left-sided dialysis catheter is noted with tip projecting in the expected location of the superior vena cava/right atrium junction. Cardiomegaly is present. Left lung base is partially obscured by the heart shadow. No definite acute infiltrate or pleural effusion. No pneumothorax. IMPRESSION: IMPRESSION: 1. Cardiomegaly. 2. Left-sided dialysis catheter is noted with tip projecting in the expected location of the superior vena cava/right atrium junction. 3. No definite acute infiltrate or pleural effusion. Authenticated and EASTERN Dictated By: EDWARD SCHMITT Transcribed By: Transcribed On: 04/17/2024 12:21 AM Electronically signed by: EDWARD SCHMITT 04/17/2024 Thank you for referring LEONCIO ROLLINS to [facility]. Legally authenticated by DALILA Carlton MD 2024-04-17 00:21:[address] [place] [address] Name: LEONCIO ROLLINS Exam Date: 04/16/2024 : 1975 Age 49 years Gender: M Physician: KRISTIE NOBLE Facility: [facility] Facility HSV: Outpatient Exam: CHEST SINGLE VIEW/PORTABLE FINAL REPORT TECHNIQUE: null CLINICAL HISTORY: dialysis cath will flush but not draw back,, flushed at home with heparin, and attempted to draw without success, went to clinic and they put in cath lars, and sent home, said to wait 2 hours, attempted to home dialyze himself and machine started beeping, saying blood clots COMPARISON: null FINDINGS: CHEST X-RAY FRONTAL VIEW COMPARISON: None. FINDINGS: A single frontal view of the chest was performed. Lordotic technique is noted. A left-sided dialysis catheter is noted with tip projecting in the expected location of the superior vena cava/right atrium junction. Cardiomegaly is present. Left lung base is partially obscured by the heart shadow. No definite acute infiltrate or pleural effusion. No pneumothorax. IMPRESSION: IMPRESSION: 1. Cardiomegaly. 2. Left-sided dialysis catheter is noted with tip projecting in the expected location of the superior vena cava/right atrium junction. 3. No definite acute infiltrate or pleural effusion. Authenticated and EASTERN Dictated By: EDWARD SCHMITT Transcribed By: Transcribed On: 04/17/2024 12:21 AM Electronically signed by: EDWARD SCHMITT 04/17/2024 Addendum 1 FINAL REPORT TECHNIQUE: null CLINICAL HISTORY: dialysis cath will flush but not draw back,, flushed at home with heparin, and attempted to draw without success, went to clinic and they put in cath lars, and sent home, said to wait 2 hours, attempted to home dialyze himself and machine started beeping, saying blood clots COMPARISON: null FINDINGS: CHEST X-RAY FRONTAL VIEW COMPARISON: None. FINDINGS: A single frontal view of the chest was performed. Legally authenticated by DALILA Carlton MD 2024-04-17 00:21:52 Lordotic technique is noted. A left-sided dialysis catheter is noted with tip projecting in the expected location of the superior vena cava/right atrium junction. Cardiomegaly is present. Left lung base is partially obscured by the heart shadow. No definite acute infiltrate or pleural effusion. No pneumothorax. IMPRESSION: IMPRESSION: 1. Cardiomegaly. 2. Left-sided dialysis catheter is noted with tip projecting in the expected location of the superior vena cava/right atrium junction. 3. No definite acute infiltrate or pleural effusion. Authenticated and ERN Dictated By: EDWARD SCHMITT Dictated Date: 04/17/2024 Electronically signed by: EDWARD SCHMITT 04/17/2024 Thank you for referring LEONCIO ROLLINS to [facility]. Legally authenticated by DALILA Carlton MD 2024-04-17 00:21:52 PATHOLOGY NARRATIVE RESULTS Information is not available MICROBIOLOGY RESULTS No Micro Labs/Results Exist for Patient BLOOD ADMIN RESULTS Information is not available MEDICATIONS HOME MEDICATIONS Status [facility] Medication Dose Route Frequency Dates Comments Reported By Updated By Martin polo ASPIR-LOW 81.0 MG ORAL DAILY Last Dose: [id number] on 2023 2:48:40 AM [facility] Active 920032 83483 97557 3 Calcitriol Capsule 0.25 MCG 0.25 MCG ORAL DAILY Last Dose: [id number] on 2023 2:48:40 AM [facility] Active 686350 48501 83534 1 CALCIUM ACET 667MG CAP 1334. 0 MG ORAL TIDWM Last Dose: [id number] on 2023 2:48:40 AM [facility] Active 365773 53378 26110 0 carvedilol 25 mg tablet 2.0 TAB ORAL BID Last Dose: [id number] on 2023 2:48:40 AM [facility] Active 21488 23857 1 cholecalcife rol (vitamin D3) 1 0.0 Last Dose: take 1 Capsule by mouth 3 times weekly [id number] on [facility] 2023 2:48:40 AM [facility] Active 866703 98591 85360 4 Cinacalcet HCl Tablet 90 MG 90.0 MG ORAL DAILY Last Dose: [id number] on [facility] 2023 2:48:40 AM UT Active 920182 99069 82531 0 doxazosin 8 mg tablet 1.0 TAB ORAL BEDTIME Last Dose: TAKE ONE TABLET BY MOUTH AT BEDTIME [id number] on [facility] 2023 2:48:40 AM UT Active FreeT extMe d entecavir 0.5 mg tablet 0.0 Last Dose: TAKE ONE TABLET BY MOUTH EVERY 7 DAYS [id number] on [facility] 2023 2:48:41 AM UT Active 11126 08971 0 FeroSul 325 mg (65 mg iron) tablet 1.0 FLS ORAL DAILY Last Dose: [id number] on [facility] 2023 2:48:41 AM [facility] Active 739803 44467 30420 2 folic acid 1 mg tablet 1.0 TAB ORAL DAILY Last Dose: [id number] on [facility] 2023 2:48:41 AM UT Active 115862 57755 18045 1 gabapentin 800 mg tablet 0.5 TAB ORAL BID Last Dose: [id number] on [facility] 2023 2:48:41 AM UT Active 550024 83684 51647 2 GENGRAF 25MG CAP 0.0 Last Dose: [id number] on [facility] 2023 2:48:41 AM [facility] Active 307392 78111 72435 0 METHOCARBAM 500MG TAB 500.0 MG ORAL TIDPRN Last Dose: [id number] on [facility] 2023 2:48:41 AM UT Active 455206 34920 75137 1 Humulin N NPH U-100 Insulin KwikPen 100 unit/mL (3 mL) subcutaneous 0.0 Last Dose: INJECT 12 units EVERY MORNING and 6 units EACH EVENING as directed [id number] on [facility] 2023 2:48:41 AM [facility] Active 706114 27705 46361 1 montelukast 10 mg tablet 10.0 MG ORAL DAILY Last Dose: TAKE ONE TABLET BY MOUTH DAILY [id number] on 2023 2:48:41 AM UT Active FreeT extMe d pantoprazole 40 mg tablet 40.0 MG ORAL DAILY Last Dose: TAKE ONE TABLET BY MOUTH THREE TIMES DAILY [id number] on 2023 2:48:41 AM UT Active 947832 13953 04679 7 SEVELAM CARB 800MG RV TAB 0.0 Last Dose: [id number] on 2023 2:48:41 AM UT Active 514259 43214 23177 0 Simethicone Capsule 180 MG 1.0 CAP ORAL TIDWM [id number] 2:48:41 AM UT Active 6371986 07335 90213 1 TESTOST CYP 200MG/ML SDV 0.0 Last Dose: [id number] on 2023 2:48:42 AM UT Active FreeT extMe d Valproic Acid Capsule 250 MG 250.0 MG ORAL BEDTIME Last Dose: [id number] on 2023 2:48:42 AM UT Active 8279795 01557 62379 0 Vascepa 1 gram capsule 2.0 GM ORAL DAILY Last Dose: TAKE 2 Capsule by mouth twice daily [id number] on 2023 2:48:42 AM UT DISCHARGE MEDICATIONS Status [facility] Medication Dose Route Frequency Dates Comments Physician Updated By No Discharge Medication Info rmation Available INPATIENT MEDICATIONS Status RXNORM ND Medication Dose Route Frequency Rat e Quantity Dates Comments Physician Updated By [facility] [phone] kayexalate (KIONEX) 15 GM/60ML SUSP 15.0 GM ORAL ONE TIME ONLY Start: 2023 7:44:0 0 AM UT End: 2023 7:38:0 0 AM UT REAL Costello MD INTERFAC ED on 2023 6:03:00 AM [facility] SOCIAL HISTORY SOCIAL HISTORY SNOMED-CT Social History Element Description Effective Dates Offered Cessation Comment UpdatedBy [id number] Historical Tobacco smoking status Never Smoked Not Applicable [id number] on March 02, 2024 12:45:39 PM UTC SOCIAL HISTORY - Gender Sex: Male SOCIAL HISTORY - Status : status i nformation is not available Intention in Next Year: intention information is not available SOCIAL HISTORY - Sexual Behavior Sexual Orientation Gender Identity SNOMED-CT Description SNO MED -CT Description Activity Level No of Partners Partner Type UpdatedBy Information is not available VITAL SIGNS PATIENT VITAL SIGNS This section displays the mo st recent value for each vital sign as of April 19, 2024 9:05:08 AM UTC Loinc Code Vital Sign Activity Date Result Updated By 8310-5 Body temperature April 17 2:41:10 AM UTC 99.1 [degF] [id number] on April 18, 2024 7:39:13 AM UTC 07712-6 Body weight Measured April 7:39:17 AM UTC 137.892 kg (304.0 lb) [id number] on April 18, 2024 7:39:17 AM UTC 8462-4 Diastolic blood pressure April 17, 2024 6:07:00 AM UTC 98.0 mm[Hg] [id number] on April 18, 2024 7:39:24 AM UTC 8867-4 Heart rate April 17 6:47:00 AM UTC 91 /min [id number] on April 18, 2024 7:39:25 AM UTC 97800-3 Oxygen saturation in Arterial blood by Pulse oximetry April 17, 2024 6:47:00 AM UTC 98.0 % [id number] on April 18, 2024 7:39:25 AM UTC 9279-1 Respiratory rate April 17 6:07:00 AM UTC 18 /min [id number] on April 18, 2024 7:39:24 AM UTC 8480-6 Systolic blood pressure April 17, 2024 6:07:00 AM UTC 198.0 mm[Hg] [id number] on April 18, 2024 7:39:24 AM UTC PEDIATRIC GROWTH CHART - VITAL SIGNS This section displays Head C ircumference Percentile, Weight for Length Percentile and BMI Percentile Loinc Code Pediatric Measure Age (Months) Result Updat ed By No Pediatric Growth Chart Pe rcentile Information Available. HEALTH CONCERNS Problems Concern Status Health Concern problem infor mation not available. Smoking Status Status Years Used Consumed packs p er day Health Concern smoking histo ry information not available. Family History Concern Status Health Concern family histor y information not available. ENCOUNTERS ENCOUNTER INFORMATION Reason for Visit KIDNEY PROBLEM Admission April 17, 2024 2:27:[address] [id number] Discharge April 17, 2024 7:38:00 AM [facility] ANOTHER [facility]ORT[facility] ENCOUNTER DIAGNOSES Notes information is not halle ilable. Code System Diagnosis Onset Date Diagnosis information is not available. 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 [id number] on April 19, 2024 7:04:32 AM [facility] N18.6 ICD10 END STAGE RENAL DISEASE [id number] on April 19, 2024 7:04:32 AM [facility] E87.5 ICD10 HYPERKALEMIA [id number] on Apr 9:03:47 AM UT I25.10 ICD10 ATHEROSCLEROTIC HEART DISEASE OF [place] CORONARY ARTERY WITHOUT ANGINA PECTORIS [id number] on April 19, 2024 7:04:32 AM [facility] 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, UNSPECIFIED [id number] on April 19, 2024 7:04:32 AM UT Z99.2 ICD10 DEPENDENCE ON RENAL DIALYSIS [id number] on April 19, 2024 7:04:32 AM UT Z88.5 ICD10 ALLERGY STATUS TO NARCOTIC A GENT [id number] on April 19, 2024 7:04:32 AM UT Z91.040 ICD10 LATEX ALLERGY STATUS [id number] on April 19, 2024 7:04:32 AM UT Z79.82 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 [id number] on April 19, 2024 7:04:32 AM UT Z79.899 ICD10 OTHER SHELTER (CURRENT) DR UG THERAPY [id number] on April 19, 2024 7:04:32 AM UT Z79.4 ICD10 SECURITY SOFTWARE ENGINEER (CURRENT) USE OF I NSULIN [id number] on April 19, 2024 7:04:32 AM [facility] CARE TEAM Care Splicer Helper Role KRISTIE NOBLE Admitting KRISTIE NOBLE Primary Attending JOHANNY GARCIA Primary Care KRISTIE NOBLE Referring CARE TEAM CARE clinical dental technician Role on Team Status Start Date End Date Update d By REAL Costello MD Referring normal April 17, 2024 3:16:34 AM [facility] April 17, 2024 7:38:00 AM [facility] [id number] on April 17, 2024 3:16:34 AM [facility] REAL Costello MD Attending normal April 17, 2024 3:16:34 AM [facility] April 17, 2024 7:38:00 AM [facility] [id number] on April 17, 2024 3:16:34 AM [facility] REAL Costello MD Admitting normal April 17, 2024 3:16:34 AM [facility] April 17, 2024 7:38:00 AM [facility] [id number] on April 17, 2024 3:16:34 AM [facility] RADHA ORLANDO MD PHY PCP normal April 17, 2024 2:29:41 AM [facility] April 17, 2024 7:38:00 AM [facility] [id number] on April 17, 2024 3:16:34 AM [facility]
--- OUTSIDE RECORDS SUMMARY | 2024-04-25 19:07 | XMS_ITS | Continuity of Care Document ---
Author Organization [facility] [employer] Phone Care Team Providers Care Workforce Development Assistant Name Role Phone AISLINN TIWARI Primary Attending AISLINN TIWARI Admitting JOHANNY GARCIA Primary Care AISLINN TIWARI Unavailable ALLERGIES AND ADVERSE REACTIONS ALLERGIES AND ADVERSE REACTIONS Code System Allergy Substance Adverse Reaction Date Reaction (Severity) Comment Status Reported By Updated By LATEX (Free Text Allergy) Adverse reaction to substance u active [id number] on September 20, 2023 11:56:02 AM UTC 2670 RXNorm CODEINE Adverse reaction to substance u active [id number] on September 20, 2023 11:56:01 AM UTC ASSESSMENTS End stage renal failure on dialysis ; Hypertensive urgency ; Chest pain ; FAMILY HISTORY RELATION: Father Status: Cause of [...] Status: LIVING SNOMED-CT Diagnosis Age At Onset [id number] Corrosion of esophagus PROBLEMS PATIENT PROBLEMS Code Description/Comments Status Updated By [id number] End stage renal failure on dialysis activ e [id number] on September 20, 2023 11:35:34 AM UTC [id number] Hypertensive urgency active [id number] on September 20, 2023 11:36:03 AM UTC [id number] Chest pain active [id number] on 2023 11:36:10 AM UTC RESULTS Patient: AYO Oviedo JR Date of : 1975 Medical Record Number: [id number] LABORATORY RESULTS ORDER 200: COMP METABOLIC PA JACQUELIN (LOINC: 85402-8) ORDER DATE: September 20, 2023 8:16:00 AM UTC Specimen Source: Serum/Plasm a PERFORMING LAB: [address] [id number] Result Comment: September 20, 2023 10:06:00 AM UTC TNP=Test Not Performed Result Comment: September 20, 2023 10:06:00 AM UTC Tried diluting grossly lipemic specimen. Chemistry machine Result Comment: September 20, 2023 10:06:00 AM UT still couldn't give a number for either test. Final Result Date: September 20, 2023 10:06:00 AM UT (TECH: [employer]) LOINC TEST FLAG RESULT REFERENCE RANGE UPDA ESPERANZA BY 2951-2 Sodium [Moles/volume ] in Serum or Plasma N 136 mmol/L 136 mmol/L - 145 mmol/L September 20, 2023 9:09:00 AM UT (TECH: [employer]) 2823-3 Potassium [Moles/volume] in Serum or Plasma N 4.9 mmol/L 3.5 mmol/L - 5.1 mmol/L September 20, 2023 9:09:00 AM UT (TECH: [employer]) 2075-0 Chloride [Moles/volu me] in Serum or Plasma L 97 mmol/L 98 mmol/L - 107 mmol/L September 20, 2023 9:09:00 AM UT (TECH: [facility]) 8-9 Carbon dioxide, tota l [Moles/volume] in Serum or Plasma N 23 mmol/L 21 mmol/L - 32 mmol/L September 20, 2023 9:09:00 AM UT (TECH: [employer]) 83533-0 Anion gap 3 in Serum or Plasma N 16.0 September 20, 2023 9:09:00 AM UTC (TECH: [employer]) 2345-7 Glucose [Mass/volume ] in Serum or Plasma H 268 mg/dL 70 mg/dL - 110 mg/dL September 20, 2023 9:09:00 AM UT (TECH: [facility]JV) 3094-0 Urea nitrogen [Mass/volume] in Serum or Plasma H 48 mg/dL 7 mg/dL - 18 mg/dL September 20, 2023 9:09:00 AM UTC (TECH: RJV) 2160-0 Creatinine [Mass/volume] in Serum or Plasma H 7.9 mg/dL 0.8 mg/dL - 1.3 mg/dL September 20, 2023 9:28:00 AM [facility] ([employer]: [employer]) 3097-3 Urea nitrogen/Creatinine [Mass Ratio] in Serum or Plasma L 6.1 Ratio 9 Ratio - 21 Ratio September 20, 2023 9:28:00 AM [facility] (TECH: [employer]) 57097-2 Glomerular filtratio n rate/1.73 sq M.predicted by Creatinine-based formula (MDRD) L 8 mL/min >60 September 20, 2023 9:28:00 AM [facility] (TECH: [employer]) 2885-2 Protein [Mass/volume ] in Serum or Plasma N 8.2 g/dL 6.4 g/dL - 8.2 g/dL September 20, 2023 9:28:00 AM [facility] ([employer]: [employer]) 1751-7 Albumin [Mass/volume ] in Serum or Plasma L 3.3 g/dL 3.4 g/dL - 5.0 g/dL September 20, 2023 9:09:00 AM [facility] ([employer]: [employer]) 52335-9 Calcium [Mass/volume ] in Serum or Plasma L 7.6 mg/dL 8.5 mg/dL - 10.1 mg/dL September 20, 2023 9:09:00 AM [facility] ([employer]: [employer]) 83025-8 Calcium [Mass/volume ] corrected for total protein in Serum or Plasma L 8.2 mg/dL 8.5 mg/dL - 10.1 mg/dL September 20, 2023 9:09:00 AM [facility] (TECH: [employer]) 1975-2 Bilirubin.total [Mass/volume] in Serum or Plasma N 0.9 mg/dL 0.4 mg/dL - 1.5 mg/dL September 20, 2023 9:09:00 AM [facility] ([employer]: [employer]) 1920-8 Aspartate aminotransferase [Enzymatic activity/volume] in Serum or Plasma N TNP 15 U/L - 37 U/L September 20, 2023 10:06:00 AM [facility] (TECH: [employer]) 1742-6 Alanine aminotransferase [Enzymatic activity/volume] in Serum or Plasma N TNP 12 U/L - 78 U/L September 20, 2023 10:06:00 AM UTC (TECH: [employer]) 6768-6 Alkaline phosphatase [Enzymatic activity/volume] in Serum or Plasma H 265 U/L 50 U/L - 170 U/L September 20, 2023 9:41:00 AM UTC (TECH: RJV) ORDER 300: CBC AUTO W DIFF ( LOINC: 80460-7) ORDER DATE: September 20, 2023 8:16:00 AM UTC Specimen Source: Whole Blood PERFORMING LAB: [address] [id number] Result Comment: Final Result Date: September 20, 2023 9:52:00 AM UTC (TECH: [employer]) LOINC TEST FLAG RESULT REFERENCE RANGE UPDA ESPERANZA BY 6690-2 Leukocytes [#/volume] in Blood by Automated count N 8.4 10^3/uL 4.5 10^3/uL - 11.5 10^3/uL September 20, 2023 9:52:00 AM UTC (TECH: [employer]) 789-8 Erythrocytes [#/volume] in Blood by Automated count L 4.03 10^6/uL 4.25 10^6/uL - 5.57 10^6/uL September 20, 2023 9:52:00 AM UTC (TECH: [employer]) 718-7 Hemoglobin [Mass/volume] in Blood N 14.2 g/dL 13.5 g/dL - 17.2 g/dL September 20, 2023 9:52:00 AM UTC (TECH: [employer]) 00142-1 Hematocrit [Volume Fraction] of Blood L 39.8 % 42.0 % - 52.0 % September 20, 2023 9:52:00 AM UTC (TECH: [employer]) 787-2 Erythrocyte mean corpuscular volume [Entitic volume] by Automated count H 98.8 fl 80 fl - 95 fl September 20, 2023 9:52:00 AM UTC (TECH: [employer]) 69119-5 Erythrocyte mean corpuscular hemoglobin [Entitic mass] in Blood from [place]etus by Automated count H 35.2 pg 27.0 pg - 34.0 pg September 20, 2023 9:52:00 AM UTC (TECH: [employer]) 03524-5 Erythrocyte mean corpuscular hemoglobin concentration [Mass/volume] in Blood from Fetus by Automated count N 35.7 g/dL 32.0 g/dL - 36.0 g/dL September 20, 2023 9:52:00 AM UTC (TECH: [employer]) 79044-0 Platelets [#/volume] in Blood N 254 10^3/uL 150 10^3/uL - 450 10^3/uL September 20, 2023 9:52:00 AM UTC (TECH: [employer]) 04258-7 Erythrocyte distribution width [Ratio] N 14.7 % 12.3 % - 15.1 % September 20, 2023 9:52:00 AM UTC (TECH: [employer]) 83648-1 Platelet mean volume [Entitic volume] in Blood by Automated count N 9.7 fl 7.4 fl - 10.4 fl September 20, 2023 9:52:00 AM UTC (TECH: [employer]) 86709-2 Granulocytes/100 leukocytes in Blood by Automated count N 61.2 % 40 % - 75 % September 20, 2023 9:52:00 AM UTC (TECH: [employer]) 736-9 Lymphocytes/100 leukocytes in Blood by Automated count N 23.2 % 15 % - 57 % September 20, 2023 9:52:00 AM UTC (TECH: [employer]) 5905-5 Monocytes/100 leukocytes in Blood by Automated count N 7.8 % 4.0 % - 12.0 % September 20, 2023 9:52:00 AM UTC (TECH: [employer]) 713-8 Eosinophils/100 leukocytes in Blood by Automated count N 1.7 % 0.0 % - 4.0 % September 20, 2023 9:52:00 AM UTC (TECH: [employer]) 706-2 Basophils/100 leukocytes in Blood by Automated count N 0.2 % 0.0 % - 1.0 % September 20, 2023 9:52:00 AM UTC (TECH: [employer]) 98626-0 Immature granulocytes [#/volume] in Blood H 5.9 % 0.0 % - 0.8 % September 20, 2023 9:52:00 AM UTC (TECH: [employer]) 33541-6 Granulocytes [#/volume] in Blood by Automated count N 5.11 10^3/uL September 20, 2023 9:52:00 AM UTC (TECH: RJV) 731-0 Lymphocytes [#/volume] in Blood by Automated count N 1.94 10^3/uL September 20, 2023 9:52:00 AM UTC (TECH: [employer]) 742-7 Monocytes [#/volume] in Blood by Automated count N 0.65 10^3/uL September 20, 2023 9:52:00 AM UTC (TECH: [facility]) 711-2 Eosinophils [#/volume] in Blood by Automated count N 0.14 10^3/uL September 20, 2023 9:52:00 AM UTC (TECH: RJV) 704-7 Basophils [#/volume] in Blood by Automated count N 0.02 10^3/uL September 20, 2023 9:52:00 AM UTC (TECH: [employer]) 50996-2 Immature granulocytes [#/volume] in Blood N 0.49 10^3/uL September 20, 2023 9:52:00 AM UTC (TECH: [employer]) 90272-5 Manual differential performed [Presence] in Blood N YES September 20, 2023 9:52:00 AM UTC (TECH: [employer]) 15142-5 Neutrophils.segmente d/100 leukocytes in Blood by Automated count N 66 % 36 % - 66 % September 20, 2023 9:52:00 AM UTC (TECH: [employer]) 68831-6 Neutrophils.band form/100 leukocytes in Blood by Automated count N 2 % 0.0 % - 8.0 % September 20, 2023 9:52:00 AM UTC (TECH: [employer]) 736-9 Lymphocytes/100 leukocytes in Blood by Automated count N 25 % 15 % - 41 % September 20, 2023 9:52:00 AM UTC (TECH: [employer]) 5905-5 Monocytes/100 leukocytes in Blood by Automated count N 6 % 2 % - 9 % September 20, 2023 9:52:00 AM UTC (TECH: [employer]) 713-8 Eosinophils/100 leukocytes in Blood by Automated count N 1 % 0 % - 3 % September 20, 2023 9:52:00 AM UTC (TECH: [employer]) 97133-3 Erythrocytes [Morphology] in Blood by Automated count N NORMAL NORMAL September 20, 2023 9:52:00 AM UTC (TECH: [employer]) 778-1 Platelets [#/volume] in Blood by Manual count N ADEQUATE ADEQUATE September 20, 2023 9:52:00 AM UTC (TECH: [facility]JV) 9317-9 Platelet adequacy [Presence] in Blood by Light microscopy N NORMAL NORMAL September 20, 2023 9:52:00 AM UTC (TECH: RJV) ORDER 400: TROPONIN I 1 HOUR PROTOCOL (LOINC: 47656-7) ORDER DATE: September 20, 2023 8:16:00 AM UTC Specimen Source: Plasma PERFORMING LAB: [address] [id number] Result Comment: September 20, 2023 9:56:00 AM UTC Results may be effected due to Grossly Lipemic specimen Final Result Date: September 20, 2023 9:56:00 AM UTC (TECH: [employer]) LOINC TEST FLAG [place]ULT [place] [address]-4 Troponin I.cardiac panel - Serum or Plasma by High sensitivity method N 51 ng/L 0 ng/L - 76 ng/L September 20, 2023 9:56:00 AM UTC (TECH: RJV) ORDER 500: TROPONIN QUANT (L OINC: 26791-6) ORDER DATE: September 20, 2023 8:16:00 AM UTC Specimen Source: Serum/Plasm a PERFORMING LAB: [address] [id number] Result Comment: September 20, 2023 9:10:00 AM UTC Results may be effected due to Grossly Lipemic specimen Final Result Date: September 20, 2023 9:09:00 AM UTC (TECH: [employer]) LOINC TEST FLAG [place]ULT [place] [address]-9 Troponin I.cardiac panel - Serum or Plasma by High sensitivity method N 57 ng/L 0 ng/L - 76 ng/L September 20, 2023 9:09:00 AM UTC (TECH: RJV) ORDER 1600: TROPONIN I 6 NICHOLE R PROTOCOL (LOINC: 82799-2) ORDER DATE: September 20, 2023 11:39:00 AM UTC Specimen Source: Plasma PERFORMING LAB: [address] [id number] Result Comment: Final Result Date: September 20, 2023 3:11:00 PM UTC (TECH: LT) LOINC TEST FLAG RESULT [place] [address]-6 Troponin I.cardiac panel - Serum or Plasma by High sensitivity method N 56 ng/L 0 ng/L - 76 ng/L September 20, 2023 3:11:00 PM UT (TECH: LT) ORDER 1700: LIPID PANEL (LEONELA NC: 67886-9) ORDER DATE: September 20, 2023 11:39:00 AM UT Specimen Source: Serum/Plasm a PERFORMING LAB: [address] [id number] Result Comment: Final Result Date: September 20, 2023 1:09:00 PM UT (TECH: MRB) LOINC TEST FLAG RESULT REFERENCE RANGE UPDA ESPERANZA BY 2571-8 Triglyceride [Mass/volume] in Serum or Plasma H 2011 mg/dL 20 mg/dL - 200 mg/dL September 20, 2023 1:09:00 PM UT (TECH: MRB) 2093-3 Cholesterol [Mass/volume] in Serum or Plasma H 253 mg/dL 0 mg/dL - 200 mg/dL September 20, 2023 1:09:00 PM [facility] (TECH: MRB) 2085-9 Cholesterol in HDL [Mass/volume] in Serum or Plasma L 26 mg/dL 60 mg/dL September 20, 2023 1:09:00 PM UT (TECH: MRB) 88105-9 Cholesterol in LDL [Mass/volume] in Serum or Plasma by calculation N TNP 100 mg/dL September 20, 2023 1:09:00 PM [facility] (TECH: MRB) 2095-8 Cholesterol in HDL/Cholesterol.total [Mass Ratio] in Serum or Plasma H 10 Ratio September 20, 2023 1:09:00 PM [facility] (TECH: MRB) LABORATORY NARRATIVE RESULTS Information is not available RADIOLOGY RESULTS ORDER 600: CHEST SINGLE VIEW /PORTABLE (LOINC: 60860-7) ORDER DATE: September 20, 2023 8:16:00 AM UT PERFORMING LAB: [address] [id number] Final Result Date: September 20, 2023 1:38:[address] [place] [address] Name: LEONCIO ROLLINS Exam Date: 09/20/2023 : 1975 Age 48 years Gender: M Physician: PATRICK DELUCA Facility: [facility] Facility HSV: Outpatient Exam: CHEST SINGLE VIEW/PORTABLE CHEST, 1 view HISTORY: Chest pain protocol COMPARISON: [None]. FINDINGS: [The lungs are clear.] [There is no evidence of effusion or other pleural disease. The mediastinum has a normal appearance.] Probable mild cardiomegaly. Right internal jugular large or central venous catheter terminates at the superior cavoatrial junction. IMPRESSION: No acute cardiopulmonary process Dictated By: NANCY PAGAN Transcribed By: NANCY PAGAN Transcribed On: 09/20/2023 8:38 AM Electronically signed by: NANCY PAGAN 09/20/2023 Thank you for referring LEONCIO ROLLINS to [facility]. Legally authenticated by LATASHA CRUZ 2023-09-20 08:38:44 PATHOLOGY NARRATIVE RESULTS Information is not available MICROBIOLOGY RESULTS No Micro Labs/Results Exist for Patient BLOOD ADMIN RESULTS Information is not available TREATMENT PLAN DISCHARGE MEDICATIONS Status RXNORM Medication Dose Route Frequency Dates Comments U pdated By Continued [id number] Vascepa 1 gram capsule 2 GM BY MOUTH ONCE DAILY Prescribe d: September 20, 2023 5:10:44 PM UTC TAKE 2 Capsule by mouth twice daily [id number] on September 20, 2023 5:10:44 PM UTC Continued 301072 GENGRAF 25MG CAP 0 Presc ribe d: September 20, 2023 5:10:44 PM UTC [id number] on September 20, 2023 5:10:44 PM UTC Continued 034314 Humulin N NPH U-100 Insulin KwikPen 100 unit/mL (3 mL) subcutaneous 0 Prescribe d: September 20, 2023 5:10:44 PM UTC INJECT 12 units EVERY MORNING and 6 units EACH EVENING as directed [id number] on September 20, 2023 5:10:44 PM UTC Continued carBAMazepine (TEGRETOL) 200 MG BY MOUTH TWICE A DAY Prescribe d: September 20, 2023 5:10:44 PM UTC [id number] on September 20, 2023 5:10:44 PM UTC Continued Valproic Acid Capsule 250 MG 250 MG BY MOUTH AT BEDTIME Prescribe d: September 20, 2023 5:10:44 PM UTC [id number] on September 20, 2023 5:10:44 PM UTC Continued 755390 Simethicone Capsule 180 MG 1 CAP BY MOUTH THREE TIMES DAILY WITH MEALS Prescribe d: September 20, 2023 5:10:44 PM UTC [id number] on September 20, 2023 5:10:44 PM UTC Continued 549448 carvedilol 25 mg tablet 2 TAB BY MOUTH TWICE A DAY Prescribe d: September 20, 2023 5:10:44 PM UTC [id number] on September 20, 2023 5:10:44 PM UTC Continued 377210 FeroSul 325 mg (65 mg iron) tablet 1 FLS BY MOUTH ONCE DAILY Prescribe d: September 20, 2023 5:10:44 PM UTC [id number] on September 20, 2023 5:10:44 PM UTC Continued 047442 doxazosin 8 mg tablet 1 TAB BY MOUTH AT BEDTIME Prescribe d: September 20, 2023 5:10:44 PM UTC TAKE ONE TABLET BY MOUTH AT BEDTIME [id number] on September 20, 2023 5:10:44 PM UTC Continued 771289 Cinacalcet HCl Tablet 90 MG 90 MG BY MOUTH ONCE DAILY Prescribe d: September 20, 2023 5:10:44 PM UTC [id number] on September 20, 2023 5:10:44 PM UTC Continued 092342 SEVELAM CARB 800MG RV TAB 0 Prescribe d: September 20, 2023 5:10:44 PM UTC [id number] on September 20, 2023 5:10:44 PM UTC Continued 851287 folic acid 1 mg tablet 1 TAB BY MOUTH ONCE DAILY Prescribe d: September 20, 2023 5:10:44 PM UTC [id number] on September 20, 2023 5:10:44 PM UTC Continued 527711 Calcitriol Capsule 0.25 MCG 0.25 MCG BY MOUTH ONCE DAILY Prescribe d: September 20, 2023 5:10:44 PM UTC [id number] on September 20, 2023 5:10:44 PM UTC Continued 910799 gabapentin 800 mg tablet 0.5 TAB BY MOUTH TWICE A DAY Prescribe d: September 20, 2023 5:10:44 PM UTC [id number] on September 20, 2023 5:10:44 PM UTC Continued 192864 TESTOST CYP 200MG/ML SDV 0 Prescribe d: September 20, 2023 5:10:44 PM UT [id number] on September 20, 2023 5:10:44 PM UT Continued 676690 METHOCARBAM 500MG TAB 500 MG BY MOUTH THREE TIMES A DAY NEEDED Prescribe d: September 20, 2023 5:10:44 PM UT [id number] on September 20, 2023 5:10:44 PM UT Continued 798461 CALCIUM ACET 667MG CAP 1334 MG BY MOUTH THREE TIMES DAILY WITH MEALS Prescribe d: September 20, 2023 5:10:44 PM UT [id number] on September 20, 2023 5:10:44 PM UT Continued 644377 montelukast 10 mg tablet 10 MG BY MOUTH ONCE DAILY Prescribe d: September 20, 2023 5:10:44 PM UT TAKE ONE TABLET BY MOUTH DAILY [id number] on September 20, 2023 5:10:44 PM UT Continued ASPIR-LOW 81 MG BY MOUTH ONCE DAILY Prescribe d: September 20, 2023 5:10:44 PM UT [id number] on September 20, 2023 5:10:44 PM UT Continued pantoprazole 40 mg tablet 40 MG BY MOUTH ONCE DAILY Prescribe d: September 20, 2023 5:10:44 PM UT TAKE ONE TABLET BY MOUTH THREE TIMES DAILY [id number] on September 20, 2023 5:10:44 PM UT Continued 915864 cholecalciferol (vitamin D3) 1 0 Prescribe d: September 20, 2023 5:10:44 PM UT take 1 Capsule by mouth 3 times weekly [id number] on September 20, 2023 5:10:44 PM [facility] Continued 199469 entecavir 0.5 mg tablet 0 Prescribe d: September 20, 2023 5:10:44 PM UT TAKE ONE TABLET BY MOUTH EVERY 7 DAYS [id number] on September 20, 2023 5:10:44 PM [facility] PATIENT OPEN ORDERS Code System Description Frequency Occurrences Priority [place] [address]-7 [facility] EKG study ONE TIME 0 Stat September 20, 2023 8:16:00 AM [facility] SANDRINE Rivera MD 985 on September 20, 2023 8:16:00 AM [facility] 52414-5 [facility] CBC WO Differentia l panel - Cord blood IN AM 0 Routine September 21, 2023 10:00:00 AM [facility] CLEMENTE HAMILTON [id number] on September 20, 2023 11:39:00 AM [facility] 79398-7 LOINC CBC WO Differentia l panel - Cord blood IN AM 0 Routine September 22, 2023 10:00:00 AM [facility] [id number] on September 20, 2023 11:39:00 AM [facility] 28999-6 LOINC CBC WO Differentia l panel - Cord blood IN AM 0 Routine September 23, 2023 10:00:00 AM [facility] [id number] on September 20, 2023 11:39:00 AM [facility] 03496-7 LOINC Basic metabolic panel - Blood IN AM 0 Routine September 21, 2023 10:00:00 AM [facility] [id number] on September 20, 2023 11:39:00 AM [facility] 81196-3 LOINC Basic metabolic panel - Blood IN AM 0 Routine September 22, 2023 10:00:00 AM [facility] CLEMENTE WADEP [id number] on September 20, 2023 11:39:00 AM [facility] 27236-6 LOINC Basic metabolic panel - Blood IN AM 0 Routine September 23, 2023 10:00:00 AM [facility] [id number] on September 20, 2023 11:39:00 AM [facility] 65976-8 LOINC Magnesium [Mass/volum e] in Serum or Plasma IN AM 0 Routine September 21, 2023 10:00:00 AM [facility] [id number] on September 20, 2023 11:39:00 AM [facility] 80233-0 LOINC Magnesium [Mass/volum e] in Serum or Plasma IN AM 0 Routine September 22, 2023 10:00:00 AM [facility] [id number] on September 20, 2023 11:39:00 AM [facility] 74005-2 LOINC Magnesium [Mass/volum e] in Serum or Plasma IN AM 0 Routine September 23, 2023 10:00:00 AM [facility] CLEMENTE WADEP [id number] on September 20, 2023 11:39:00 AM [facility] SCHEDULED PROCEDURES Code System Description Status Scheduled Date Upd ated By Patient scheduled procedure information is not available. MEDICATIONS HOME MEDICATIONS Status RXNORM Medication Dose Route Frequency Dates Comments R eported By Updated By Active ASPIR-LOW 81.0 MG BY MOUTH DAILY Last Dose: [id number] on September 20, 2023 8:12:43 AM [facility] Active 255581 Calcitriol Capsule 0.25 MCG 0.25 MCG BY MOUTH DAILY Last Dose: [id number] on September 20, 2023 8:12:44 AM UT Active 911053 CALCIUM ACET 667MG CAP 1334. 0 MG BY MOUTH TIDWM Last Dose: [id number] on September 20, 2023 8:12:44 AM UT Active carBAMazepine (TEGRETOL) 200.0 MG BY MOUTH BID Last Dose: [id number] on September 20, 2023 8:12:44 AM [facility] Active 692455 carvedilol 25 mg tablet 2.0 TAB BY MOUTH BID Last Dose: [id number] on September 20, 2023 8:12:44 AM UT Active cholecalcifero l (vitamin D3) 1 0.0 Last Dose: take 1 Capsule by mouth 3 times weekly [id number] on September 20, 2023 5:08:52 PM [facility] Active 535238 Cinacalcet HCl Tablet 90 MG 90.0 MG BY MOUTH DAILY Last Dose: [id number] on September 20, 2023 8:12:45 AM [facility] Active 235788 doxazosin 8 mg tablet 1.0 TAB BY MOUTH BEDTIME Last Dose: TAKE ONE TABLET BY MOUTH AT BEDTIME [id number] on September 20, 2023 5:07:12 PM [facility] Active 612935 entecavir 0.5 mg tablet 0.0 Last Dose: TAKE ONE TABLET BY MOUTH EVERY 7 DAYS [id number] on September 20, 2023 5:08:59 PM UT Active FeroSul 325 mg (65 mg iron) tablet 1.0 FLS BY MOUTH DAILY Last Dose: [id number] on September 20, 2023 5:07:11 PM [facility] Active 214696 folic acid 1 mg tablet 1.0 TAB BY MOUTH DAILY Last Dose: [id number] on September 20, 2023 5:07:11 PM UT Active 590229 gabapentin 800 mg tablet 0.5 TAB BY MOUTH BID Last Dose: [id number] on September 20, 2023 5:07:11 PM [facility] Active 837891 GENGRAF 25MG CAP 0.0 Last Dose: [id number] on September 20, 2023 5:09:16 PM UT Active 001408 Humulin N NPH U-100 Insulin KwikPen 100 unit/mL (3 mL) subcutaneous 0.0 Last Dose: INJECT 12 units EVERY MORNING and 6 units EACH EVENING as directed [id number] on September 20, 2023 5:09:31 PM UT Active insulin isophane (HUMULIN N) 100 UNIT/ML 12.0 UNT SUBCUTAN EOUS QPM Last Dose: [id number] on September 20, 2023 5:07:12 PM UT Active 869282 Loperamide HCl Tablet 2 MG 1.0 TAB BY MOUTH Q6HPRN Last Dose: [id number] on September 20, 2023 5:07:11 PM UT Active 775493 METHOCARBAM 500MG TAB 500.0 MG BY MOUTH TIDPRN Last Dose: [id number] on September 20, 2023 5:10:18 PM UT Active 797289 montelukast 10 mg tablet 10.0 MG BY MOUTH DAILY Last Dose: TAKE ONE TABLET BY MOUTH DAILY [id number] on September 20, 2023 4:59:53 PM UT Active pantoprazole 40 mg tablet 40.0 MG BY MOUTH DAILY Last Dose: TAKE ONE TABLET BY MOUTH THREE TIMES DAILY [id number] on September 20, 2023 5:07:12 PM UT Active 666104 promethazine 25 mg tablet 1.0 TAB BY MOUTH TIDPRN Last Dose: [id number] on September 20, 2023 5:07:12 PM UT Active 924604 SEVELAM CARB 800MG RV TAB 0.0 Last Dose: [id number] on September 20, 2023 5:09:54 PM UT Active 562694 Simethicone Capsule 180 MG 1.0 CAP BY MOUTH TIDWM Last Dose: [id number] on September 20, 2023 8:12:49 AM UT Active 1625157 TESTOST CYP 200MG/ML SDV 0.0 Last Dose: [id number] on September 20, 2023 5:10:02 PM UT Active Valproic Acid Capsule 250 MG 250.0 MG BY MOUTH BEDTIME Last Dose: [id number] on September 20, 2023 8:12:49 AM UT Active 9414829 Vascepa 1 gram capsule 2.0 GM BY MOUTH DAILY Last Dose: TAKE 2 Capsule by mouth twice daily [id number] on September 20, 2023 8:12:49 AM UTC DISCHARGE MEDICATIONS Status RXNORM Medication Dose Route Frequency Dates Comments Laurence damon Updated By Continued [id number] Vascepa 1 gram capsule 2.0 GM BY MOUTH ONCE DAILY Prescri bed: 2023 5:10:44 PM UTC TAKE 2 Capsule by mouth twice daily NATARAJAN-ORT EZ AISLINN [id number] on September 20, 2023 5:10:44 PM UTC Continued 452566 GENGRAF 25MG CAP 0.0 Prescri bed: 2023 5:10:44 PM UTC NATARAJAN-ORT EZ AISLINN [id number] on September 20, 2023 5:10:44 PM UTC Continued [id number] Humulin N NPH U-100 Insulin KwikPen 100 unit/mL (3 mL) subcutaneous 0.0 Prescri bed: 2023 5:10:44 PM UTC INJECT 12 units EVERY MORNING and 6 units EACH EVENING as directed NATARAJAN-ORT EZ AISLINN [id number] on September 20, 2023 5:10:44 PM UTC Continued carBAMazepin e (TEGRETOL) 200.0 MG BY MOUTH TWICE A DAY Prescri bed: 2023 5:10:44 PM UTC NATARAJAN-ORT EZ AISLINN [id number] on September 20, 2023 5:10:44 PM UTC Continued Valproic Acid Capsule 250 MG 250.0 MG BY MOUTH AT BEDTIME Prescri bed: 2023 5:10:44 PM UTC NATARAJAN-ORT EZ AISLINN [id number] on September 20, 2023 5:10:44 PM UTC Continued [id number] Simethicone Capsule 180 MG 1.0 CAP BY MOUTH THREE TIMES DAILY WITH MEALS Prescri bed: 2023 5:10:44 PM UTC NATARAJAN-ORT EZ AISLINN [id number] on September 20, 2023 5:10:44 PM UTC Continued [id number] carvedilol 25 mg tablet 2.0 TAB BY MOUTH TWICE A DAY Prescri bed: 2023 5:10:44 PM UTC NATARAJAN-ORT EZ AISLINN [id number] on September 20, 2023 5:10:44 PM UTC Continued [id number] FeroSul 325 mg (65 mg iron) tablet 1.0 FLS BY MOUTH ONCE DAILY Prescri bed: 2023 5:10:44 PM UTC NATARAJAN-ORT EZ AISLINN [id number] on September 20, 2023 5:10:44 PM UTC Continued [id number] doxazosin 8 mg tablet 1.0 TAB BY MOUTH AT BEDTIME Prescri bed: 2023 5:10:44 PM UTC TAKE ONE TABLET BY MOUTH AT BEDTIME NATARAJAN-ORT EZ AISLINN [id number] on September 20, 2023 5:10:44 PM UTC Continued [id number] Cinacalcet HCl Tablet 90 MG 90.0 MG BY MOUTH ONCE DAILY Prescri bed: 2023 5:10:44 PM UTC NATARAJAN-ORT EZ AISLINN [id number] on September 20, 2023 5:10:44 PM UTC Continued [id number] SEVELAM CARB 800MG RV TAB 0.0 Prescri bed: 2023 5:10:44 PM UTC NATARAJAN-ORT EZ AISLINN [id number] on September 20, 2023 5:10:44 PM UTC Continued [id number] folic acid 1 mg tablet 1.0 TAB BY MOUTH ONCE DAILY Prescri bed: 2023 5:10:44 PM UTC NATARAJAN-ORT EZ AISLINN [id number] on September 20, 2023 5:10:44 PM UTC Continued [id number] Calcitriol Capsule 0.25 MCG 0.25 MCG BY MOUTH ONCE DAILY Prescri bed: 2023 5:10:44 PM UTC NATARAJAN-ORT EZ AISLINN [id number] on September 20, 2023 5:10:44 PM UTC Continued [id number] gabapentin 800 mg tablet 0.5 TAB BY MOUTH TWICE A DAY Prescri bed: 2023 5:10:44 PM UTC NATARAJAN-ORT EZ AISLINN [id number] on September 20, 2023 5:10:44 PM UTC Continued [id number] TESTOST CYP 200MG/ML SDV 0.0 Prescri bed: 2023 5:10:44 PM UTC NATARAJAN-ORT EZ AISLINN [id number] on September 20, 2023 5:10:44 PM UTC Continued [id number] METHOCARBAM 500MG TAB 500.0 MG BY MOUTH THREE TIMES A DAY NEEDED Prescri bed: 2023 5:10:44 PM UTC NATARAJAN-ORT EZ AISLINN [id number] on September 20, 2023 5:10:44 PM UTC Continued [id number] CALCIUM ACET 667MG CAP 1334. 0 MG BY MOUTH THREE TIMES DAILY WITH MEALS Prescri bed: 2023 5:10:44 PM UTC NATARAJAN-ORT EZ AISLINN [id number] on September 20, 2023 5:10:44 PM UTC Continued [id number] montelukast 10 mg tablet 10.0 MG BY MOUTH ONCE DAILY Prescri bed: 2023 5:10:44 PM UTC TAKE ONE TABLET BY MOUTH DAILY NATARAJAN-ORT EZ AISLINN [id number] on September 20, 2023 5:10:44 PM UTC Continued ASPIR-LOW 81.0 MG BY MOUTH ONCE DAILY Prescri bed: 2023 5:10:44 PM UTC NATARAJAN-ORT EZ AISLINN [id number] on September 20, 2023 5:10:44 PM UTC Continued pantoprazole 40 mg tablet 40.0 MG BY MOUTH ONCE DAILY Prescri bed: 2023 5:10:44 PM UTC TAKE ONE TABLET BY MOUTH THREE TIMES DAILY NATARAJAN-ORT EZ AISLINN [id number] on September 20, 2023 5:10:44 PM UTC Continued [id number] cholecalcife rol (vitamin D3) 1 0.0 Prescri bed: 2023 5:10:44 PM UTC take 1 Capsule by mouth 3 times weekly NATARAJAN-ORT EZ AISLINN [id number] on September 20, 2023 5:10:44 PM UTC Continued [id number] entecavir 0.5 mg tablet 0.0 Prescri bed: 2023 5:10:44 PM UTC TAKE ONE TABLET BY MOUTH EVERY 7 DAYS NATARAJAN-ORT EZ AISLINN [id number] on September 20, 2023 5:10:44 PM UTC INPATIENT MEDICATIONS Status RXNORM Medication Dose Route Frequency Rate Quantity Dates Comments Physician Updated By Discont inued [id number] labetalol (TRANDATE) 5 MG/ML SOLN 100.0 MG INTRAV ENOUS ONE TIME ONLY Start: 2023 8:19:0 0 AM UTC End: 2023 8:19:0 0 AM UTC SANDRINE Rivera MD INTERF ED on September 20, 2023 8:18:00 AM UTC Discont inued [id number] atorvastati n calcium (LIPITOR) 40 MG TABS 80.0 MG BY MOUTH AT BEDTIME Start: 2023 5:10:4 4 PM UTC End: 2023 5:10:4 4 PM UTC FURNJESSICA WADEP [id number] on September 20, 2023 11:34:00 AM UT Discont inued MONOJECT FLUSH SYRINGE 0.9 % SOLN 10.0 ML INTRAV ENOUS TWICE A DAY Start: 2023 2:00:0 0 PM UTC End: 2023 5:10:4 4 PM UTC FURNISH KUUSM WADEP [id number] on September 20, 2023 11:38:00 AM UTC Discont inued MONOJECT FLUSH SYRINGE 0.9 % SOLN 10.0 ML INTRAV ENOUS NEEDED Start: 2023 11:34: 00 AM UTC End: 2023 5:10:4 4 PM UTC FURNISH KUSUM WADEP [id number] on September 20, 2023 11:38:00 AM UTC Discont inued [id number] ACETAMINOPH EN 325 MG TABS 650.0 MG BY MOUTH EVERY SIX HOURS NEEDED Start: 2023 11:34: 00 AM UTC End: 2023 5:10:4 4 PM UTC FURNJESSICA WADEP [id number] on September 20, 2023 11:38:00 AM UTC Discont inued [id number] melatonin 3 MG TABS 3.0 MG BY MOUTH AT BEDTIME NEEDED Start: 2023 11:34: 00 AM UTC End: 2023 5:10:4 4 PM UTC FURNISH KUSUM AMAROKaylyn WADEP [id number] on September 20, 2023 11:38:00 AM UTC Discont inued [id number] ACETAMINOPH EN 325 MG TABS 650.0 MG BY MOUTH EVERY SIX HOURS NEEDED Start: 2023 11:34: 00 AM UTC End: 2023 5:10:4 4 PM UTC FURNISH KUSUM AMAROH 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 [id number] on September 20, 2023 11:38:00 AM UTC Discont inued [id number] pantoprazol e (PROTONIX) 40 MG TBEC 40.0 MG BY MOUTH ONCE DAILY Start: 2023 2:00:0 0 PM UTC End: 2023 5:10:4 4 PM UTC FURNISH KUSUM 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 [id number] on September 20, 2023 11:38:00 AM UTC Discont inued [id number] insulin lispro(EUGENIO LOG) 100 UNIT/ML SOLN 1.0 UNT SUBCUT ANEOUS SLIDING SCALE NEEDED Start: 2023 11:34: 00 AM UTC End: 2023 5:10:4 4 PM UTC [facility] [id number] on September 20, 2023 11:38:00 AM UTC Discont inued [id number] dextrose SYR (D50) PFS 50 % SOLN 50.0 ML INTRAV ENOUS NEEDED Start: 2023 11:34: 00 AM UTC End: 2023 5:10:4 4 PM UTC [facility] KUSUM [facility] [id number] on September 20, 2023 11:38:00 AM UTC Discont inued [id number] ondansetron (ZOFRAN) 4 MG/2ML SOLN 4.0 MG INTRAV ENOUS EVERY EIGHT HOURS NEEDED Start: 2023 11:34: 00 AM UTC End: 2023 5:10:4 4 PM UTC FURNISH KUSUM GUILLORY [facility] [id number] on September 20, 2023 11:38:00 AM UTC Discont inued [id number] ondansetron (ZOFRAN) 4 MG TBDP 4.0 MG SUBLIN GUAL EVERY EIGHT HOURS NEEDED Start: 2023 11:34: 00 AM UTC End: 2023 5:10:4 4 PM UTC FURNJESSICA GUILLORY [facility] [id number] on September 20, 2023 11:38:00 AM UTC Discont inued carvedilol 25 mg tablet 1.0 TAB BY MOUTH TWICE A DAY Start: 2023 5:10:4 4 PM UTC End: 2023 5:10:4 4 PM UTC NATARAJAN-ORT EZ AISLINN [id number] on September 20, 2023 5:12:00 PM UTC Discont inued carBAMazepi ne (TEGRETOL) 200.0 MG BY MOUTH TWICE A DAY Start: 2023 4:56:0 0 PM UTC End: 2023 5:11:3 4 PM UTC NATARAJAN-ORT EZ AISLINN [id number] on September 20, 2023 5:12:00 PM UTC Active 745709 CALCIUM ACETATE (PHOS BINDER) 667 MG CAPS 1334. 0 MG BY MOUTH THREE TIMES DAILY WITH MEALS Start: 2023 5:00:0 0 PM UTC End: 2023 6:05:0 0 PM UTC NATARAJAN-ORT EZ AISLINN [id number] on September 20, 2023 5:07:00 PM UTC Active [id number] calcitriol (ROCALTROL) 0.25 MCG CAPS 0.25 MCG BY MOUTH ONCE DAILY Start: 2023 4:55:0 0 PM UTC End: 2023 6:05:0 0 PM UTC NATARAJAN-ORT EZ AISLINN [id number] on September 20, 2023 5:07:00 PM UTC Discont inued ASPIR-LOW 81.0 MG BY MOUTH ONCE DAILY Start: 2023 4:55:0 0 PM UTC End: 2023 5:11:0 1 PM UTC NATARAJAN-ORT EZ AISLINN [id number] on September 20, 2023 5:11:00 PM UTC Discont inued Cinacalcet HCl Tablet 90 MG 90.0 MG BY MOUTH ONCE DAILY Start: 2023 2:00:0 0 PM UTC End: 2023 6:05:0 0 PM UTC NATARAJAN-ORT EZ AISLINN [id number] on September 20, 2023 5:17:00 PM UTC Discont inued Vascepa 1 gram capsule 2.0 GM BY MOUTH ONCE DAILY Start: 2023 2:00:0 0 PM UTC End: 2023 6:05:0 0 PM UTC NATARAJAN-ORT EZ AISLINN [id number] on September 20, 2023 5:15:00 PM UTC Discont inued Valproic Acid Capsule 250 MG 250.0 MG BY MOUTH AT BEDTIME Start: 2023 2:00:0 0 AM UTC End: 2023 6:05:0 0 PM UTC NATARAJAN-ORT EZ AISLINN [id number] on September 20, 2023 5:19:00 PM UTC Active 329356 MONTELUKAST SODIUM 10 MG TABS 10.0 MG BY MOUTH ONCE DAILY Start: 2023 2:00:0 0 PM UTC End: 2023 6:05:0 0 PM UTC NATARAJAN-ORT EZ AISLINN [id number] on September 20, 2023 5:07:00 PM UTC Active [id number] methocarbam ol (ROBAXIN) 500 MG TABS 500.0 MG BY MOUTH THREE TIMES A DAY NEEDED Start: 2023 4:59:0 0 PM UTC End: 2023 6:05:0 0 PM UTC NATARAJAN-ORT EZ AISLINN [id number] on September 20, 2023 5:07:00 PM UTC Discont inued Simethicone Capsule 180 MG 1.0 CAP BY MOUTH THREE TIMES DAILY WITH MEALS Start: 2023 5:00:0 0 PM UTC End: 2023 5:12:4 5 PM UTC NATARAJAN-ORT EZ AISLINN [id number] on September 20, 2023 5:13:00 PM UTC Active [id number] ASPIR-LOW 81 MG TBEC 81.0 MG BY MOUTH ONCE DAILY Start: 2023 2:00:0 0 PM UTC End: 2023 6:05:0 0 PM UTC NATARAJAN-ORT EZ AISLINN [id number] on September 20, 2023 5:11:00 PM UTC Active [id number] carBAMazepi ne (TEGRETOL) 100 MG CHEW 200.0 MG BY MOUTH TWICE A DAY Start: 2023 5:11:0 0 PM UTC End: 2023 6:05:0 0 PM UTC NATARAJAN-ORT EZ AISLINN [id number] on September 20, 2023 5:12:00 PM UTC Active *PATIENT INFORMATION MISC 1.0 EA SEE COMMEN TS NEEDED Start: 2023 5:11:0 0 PM UTC End: 2023 6:05:0 0 PM UTC NATARAJAN-ORT EZ AISLINN [id number] on September 20, 2023 5:11:00 PM UTC Active [id number] carvedilol (COREG) 12.5 MG TABS 25.0 MG BY MOUTH TWICE A DAY Start: 2023 2:00:0 0 AM UTC End: 2023 6:05:0 0 PM UTC NATARAJAN-ORT EZ AISLINN [id number] on September 20, 2023 5:12:00 PM UTC Active 666693 simethicone (MYLICON) 80 MG CHEW 160.0 MG BY MOUTH THREE TIMES DAILY WITH MEALS Start: 2023 5:13:0 0 PM UTC End: 2023 6:05:0 0 PM UTC NATARAJAN-ORT EZ AISLINN [id number] on September 20, 2023 5:13:00 PM UTC Active PATIENTS OWN MEDICATION 1 DOSE MISC 2.0 DOS BY MOUTH ONCE DAILY Start: 2023 2:00:0 0 PM UTC End: 2023 6:05:0 0 PM UTC NATARAJAN-ORT EZ AISLINN [id number] on September 20, 2023 5:15:00 PM UTC Active PATIENTS OWN MEDICATION 1 DOSE MISC 1.0 DOS BY MOUTH ONCE DAILY Start: 2023 2:00:0 0 PM UTC End: 2023 6:05:0 0 PM UTC NATARAJAN-ORT EZ AISLINN [id number] on September 20, 2023 5:17:00 PM UTC Active PATIENTS OWN MEDICATION 1 DOSE MISC 1.0 DOS BY MOUTH AT BEDTIME Start: 2023 2:00:0 0 AM UTC End: 2023 6:05:0 0 PM UTC NATARAJAN-ORT EZ AISLINN [id number] on September 20, 2023 5:19:00 PM UTC Active *PATIENT INFORMATION MISC 1.0 EA SEE COMMEN TS NEEDED Start: 2023 5:36:0 0 PM UTC End: 2023 6:05:0 0 PM UTC NATARAJAN-ORT EZ AISLINN [id number] on September 20, 2023 5:36:00 PM UTC SOCIAL HISTORY SOCIAL HISTORY SNOMED-CT Social History Element Description Effective Dates Offered Cessation Comment UpdatedBy [id number] Historical Tobacco smoking status Never Smoked [id number] on May 27, 2023 5:53:01 PM UTC SOCIAL HISTORY - Gender Sex: Male SOCIAL HISTORY - Sexual Behavior Sexual Orientation Gender Identity SNOMED-CT Description SNO MED -CT Description Activity Level No of Partners Partner Type UpdatedBy Information is not available VITAL SIGNS PATIENT VITAL SIGNS This section displays the mo st recent value for each vital sign as of September 20, 2023 7:05:17 PM [place] Loinc Code Vital [place] [address]-2 Blood glucose monitors September 20, 2023 4:45:00 PM UTC 157.0 mg/dL [id number] on September 20, 2023 5:16:47 PM UT 8302-2 Body height September 20, 2023 11:58:59 AM UTC 175.26 cm (69.0 in) [id number] on September 20, 2023 11:58:59 [place] [address]-0 Body mass index (BMI ) [Ratio] September 20, 2023 11:58:59 AM UTC 44.15 kg/m2 [id number] on September 20, 2023 11:58:59 AM UTC 3140-1 Body Surface Area Derived From Formula September 20, 2023 11:58:59 AM UTC 2.4506 m2 [id number] on September 20, 2023 11:58:59 AM UTC 8310-5 Body temperature September 20 4:30:00 PM UTC 98.6 [degF] [id number] on September 20, 2023 5:17:31 PM UTC 15066-4 Body weight Measured September 20, 2023 11:58:59 AM UTC 135.624 kg (299.0 lb) [id number] on September 20, 2023 11:58:59 AM UTC 8462-4 Diastolic blood pressure September 20, 2023 4:30:00 PM UTC 74.0 mm[Hg] [id number] on September 20, 2023 5:17:31 PM UTC 8867-4 Heart rate September 20, 2023 4:30:00 PM UTC 85 /min [id number] on September 20, 2023 5:17:31 PM UTC 76644-1 Oxygen saturation in Arterial blood by Pulse oximetry September 20, 2023 4:30:00 PM UTC 94.0 % [id number] on September 20, 2023 5:17:31 PM UTC 9279-1 Respiratory rate September 20 4:30:00 PM UTC 18 /min [id number] on September 20, 2023 5:17:31 PM UTC 42830-8 Spirometry panel September 20 12:50:00 PM UTC 10.0 {score} [id number] on September 20, 2023 12:59:36 PM UTC 8480-6 Systolic blood pressure September 20, 2023 4:30:00 PM UTC 144.0 mm[Hg] [id number] on September 20, 2023 5:17:31 PM UTC PEDIATRIC GROWTH CHART - VITAL SIGNS This section displays Head C ircumference Percentile, Weight for Length Percentile and BMI Percentile Loinc Code Pediatric Measure Age (Months) Result Updat ed By No Pediatric Growth Chart Pe rcentile Information Available. GOALS PATIENT GOALS Goal Assigned Date Updated By *LEONCIO W ROLLINS JR WILL RECE JOHNNY CARE FOR BRONCHIAL HYGIENE September 20, 2023 [id number] on September 20, 2023 12:58:58 PM UTC HEALTH CONCERNS Problems Concern Status Health Concern problem infor mation not available. Smoking Status Status Years Used Consumed packs p er day Health Concern smoking histo ry information not available. Family History Concern Status Health Concern family histor y information not available. ENCOUNTERS ENCOUNTER INFORMATION Reason for Visit ATHEROSCLEROTIC HEAR T DISEASE OF [place] CORONARY ARTERY WITH UNTAB Admission September 20, 2023 10:58:[address] [address] Discharge September 20, 2023 6:05:00 PM [facility] DISCHARGED TO HOME OR SELF CARE ENCOUNTER DIAGNOSES Notes information is not halle ilable. Code System Diagnosis Onset Date Diagnosis information is not available. ABSTRACT DIAGNOSES Code System Diagnosis Updated By Abstract Diagnosis informati on is not available. CARE TEAM Care Workforce Development Assistant Role AISLINN TIWARI Primary Attending AISLINN TIWARI Admitting JOHANNY RADHA Primary Care AISLINN NATARAJANELENA Referring HOSPITAL DISCHARGE INSTRUCTION DISCHARGE INSTRUCTION Encounter [id number] Admit Date September 20, 2023 10: 58:00 AM [facility] Discharge Date September 20, 2023 6:0 5:00 PM [facility] PATIENT EDUCATION SUMMARY Patient/Visit Information: Patient Name: LEONCIO ROLLINS Diag: Attending Caregiver: TE TAO Discharge Date/Time: 09/20/2023 12:45:00 PM Discharge Instruction Sheets Provided: *[facility] *BRBN Social Determinants of Health *BRBN Suicidal Feelings: How to Help Yourself (LPNT) () Nonspecific Chest Pain, Adult, Cmmg-et-Ymxv Smoking\Tobacco Cessation - [facility] () () Form - Blood Pressure Record Sheet Hypertension, Adult, Barh-wg-Fbkz Chest Wall Pain, Fmpy-fh-Icda Patient Instructions: Additional Notes for *[facility] Follow up with PCP in one week Keep appointment with Dr. Calles today at 2pm Followup Appointments/Instructions: HISTORY AND PHYSICAL NOTE HISTORY AND PHYSICAL NOTE Note Title Nurse Intake Note Date Of Service September 20, 2023 12: 04:58 PM UT Created By [id number] on September 20, 2023 12:04:58 PM UTC Signed By [id number] on September 20, 2023 12:05:25 PM UTC Problems Chest pain Hypertensive urgency End stage renal failure on dialysis Past Medical History Coronary arteriosclerosis End-stage renal disease Transplantation of liver Gallstone Acute renal failure syndrome Esophageal varices Neuropathy Nonalcoholic steatohepatitis Degeneration of intervertebral disc Gilbert's syndrome Colitis Jaundice Disorder of prostate Hypertensive disorder Diabetes mellitus Past Surgical History Esophagogastroduodenoscopy in 2019 Procedure on back Cholecystectomy Transplantation of liver Transjugular intrahepatic portosystemic shunt Procedure on liver Family History Parents Father Malignant tumor of esophagus Father Malignant neoplastic disease @ 54 Mother Alive Corrosion of esophagus FROM REFLUX DISEASE Mother Alive Unknown problems several by pt information Social History alcohol use No Known Use drug use No Known Use marital status sexual behavior Identifies as Male Procedures and Surgeries (Current Encounter) None Electronically signed by ELVIA Monterroso RN on 0705 CARE TEAM CARE drencher Role on Team Status Start Date End Date Update d By TE TAO Referring normal September 20, 2023 10:56:00 AM [facility] September 20, 2023 10:58:24 AM [facility] [id number] on September 20, 2023 10:56:00 AM [facility] TE TAO Attending normal September 20, 2023 10:56:00 AM [facility] September 20, 2023 10:58:24 AM [facility] [id number] on September 20, 2023 10:56:00 AM [facility] TE TAO Admitting normal September 20, 2023 10:56:00 AM [facility] September 20, 2023 10:58:24 AM [facility] [id number] on September 20, 2023 10:56:00 AM [facility] SANDRINE LASSITER Referring normal September 20, 2023 8:00:50 AM [facility] September 20, 2023 10:54:54 AM [facility] [id number] on September 20, 2023 10:56:00 AM [facility] SANDRINE LASSITER Attending normal September 20, 2023 8:00:50 AM [facility] September 20, 2023 10:54:54 AM [facility] [id number] on September 20, 2023 10:56:00 AM [facility] SANDRINE LASSITER Admitting normal September 20, 2023 8:00:50 AM [facility] September 20, 2023 10:54:54 AM [facility] [id number] on September 20, 2023 10:56:00 AM [facility] RADHA ORLANDO MD PHY PCP normal September 7:50:36 AM [facility] September 20, 2023 10:54:54 AM [facility] [id number] on September 20, 2023 10:56:00 AM [facility]
--- NOTE | 2024-04-25 19:21 | XR_ITS ---
PROCEDURE INFORMATION: Exam: XR Chest Exam date and time: 04/25/2024 7:22 PM Age: 49 years old Clinical indication: Other: Dialysis catheter evaluation; Additional info: Dialysis catheter eval, not working TECHNIQUE: Imaging protocol: Radiologic exam of the chest. Views: 1 view. COMPARISON: CR XR CHEST PORTABLE 10/17/2023 8:53 AM FINDINGS: Tubes, catheters and devices: Tunneled dialysis catheter, which appears grossly intact, terminating at the right atrium. Lungs: No consolidation. Pleural spaces: No pleural effusion. No pneumothorax. Heart/Mediastinum: No cardiomegaly. Bones/joints: Unremarkable. IMPRESSION: Tunneled dialysis catheter, which appears grossly intact, terminating at the right atrium.
--- NOTE | 2024-04-25 19:22 | ED_ITS ---
Discharge Plan Disposition Patient Disposition: Home, Self-Care Chief Complaint: Recheck/Abnormal Lab/Rx Prescriptions Prescriptions: No Action mycophenolate mofetil 250 mg capsule 250 mg PO DAILY 30 Days Qty: 120 Patient Comments: ergocalciferol (vitamin D2) 1,250 mcg (50,000 unit) capsule 50,000 unit PO .COMPLEX 28 Days Patient Comments: Rx Instructions: 50,000 units PO 3xweek; doxazosin 8 mg tablet 8 mg PO DAILY carbamazepine 200 mg tablet 200 mg PO QHS entecavir 0.5 mg tablet 0.5 mg PO WEEKLY Patient Comments: Take 1 tablet (0.5 mg total) by mouth every 7 days. cholecalciferol (vitamin D3) 1,250 mcg (50,000 unit) capsule 1,250 mcg PO .TIW Patient Comments: take 1 Capsule by mouth 3 times weekly montelukast 10 mg tablet 10 mg PO DAILY folic acid 1 mg tablet 1 mg PO DAILY Patient Comments: TAKE ONE TABLET BY MOUTH EVERY DAY gabapentin 800 mg tablet 800 mg PO HS azelastine 137 mcg (0.1 %) aerosol,spray 1 spray intranasal BID Qty: 30 2RF Rx Instructions: administer into each nostril Ozempic 0.25 mg or 0.5 mg (2 mg/3 mL) pen injector SQ insulin aspart U-100 [Novolog FlexPen U-100 Insulin] 100 unit/mL (3 mL) insulin pen SQ amoxicillin 500 mg capsule 500 mg PO BID 10 Days Qty: 20 0RF nifedipine 90 mg tablet extended release 24hr 90 mg PO DAILY Patient Comments: Take 1 tablet(s) by mouth twice daily calcium acetate(phosphat bind) 667 mg capsule 667 mg PO ONCE Patient Comments: TAKE 1 CAPSULE BY MOUTH THREE TIMES DAILY WITH MEALS AND 1 CAPSULE DAILY WITH A SNACK testosterone cypionate 200 mg/mL oil 200 mg SQ QMONTH Patient Comments: inject 1 Milliliter intramuscular inject once monthly cyclosporine 25 mg capsule 100 mg PO BID carvedilol 25 mg tablet 25 mg PO ONCE aspirin 81 MG tablet,delayed release (DR/EC) 81 mg PO DAILY cyclobenzaprine 10 MG tablet 10 mg PO Q8H PRN (Reason: Muscle Spasm) 10 Days Qty: 30 0RF pantoprazole 40 MG tablet,delayed release (DR/EC) 40 mg PO DAILY Referrals Follow up/Referrals: Edgar Fournier [Primary Care Provider] - See instructions Activity Restrictions/Add. Instructions Additional Instructions/Restrictions: Call your transplant surgery team in the morning as well as your dialysis team to try to figure out a way to have outpatient tunneled dialysis catheter replaced. [facility] renal transplant team said there is a clinic just outside of the hospital that is able to do this on an outpatient basis, it may be worth calling them to figure out if this is a possibility. Call your family doctor to establish care for this visit to the emergency department and schedule follow-up within 48 hours to ensure improvement. If you have any worsening of your condition or any other concerning signs or symptoms, return to the emergency department or your primary care doctor for further evaluation. Clinical Impressions Clinical Impression: Dialysis catheter clot or failure Print Language Print Language: Egyptian Discharge ED Provider: Thomas Sotomayor General Adult HPI General Chief complaint: Recheck/Abnormal Lab/Rx Stated complaint: catheter issues Time Seen by Provider: 04/25/24 19:03 Mode of Arrival: Ambulatory Source of Information: Patient Limitations: No Limitations Description of Symptoms (Recalled from ER Triage Doc. by RN): Pt. presented to the ED with c/o hemodialyasis cath. is nit working. Pt. does treatments at home . Had treatments MOn, , Mon. noghts but it stopped working last night. History of Present Illness HPI narrative: Please note that above description of symptoms, in this electronic medical record under categorization of recalled from ER triage doctor by RN are reflective of an initial nursing assessment, however, is not reflective of my full history and physical exam that was personally taken and clarified. Consequentially, this preceding description of symptoms, which may include the patient's categorized chief complaint in the EMR, do not reflect my personal clinical impression, and the ultimate description of history of present illness and patient stated complaints should be deferred to this section of the note. Unless stated otherwise or congruent with this section of the note, additional signs, symptoms, or incongruence should be interpreted as inaccurate with my clinical impression. Related Data Home Medications ?Medication ?Instructions ?Recorded ?Confirmed mycophenolate mofetil 250 mg 250 mg PO DAILY Supplement 30 days 11/27/17 04/08/24 capsule ##120 aspirin 81 mg tablet,delayed 81 mg PO DAILY SUP 04/15/18 04/08/24 release calcium acetate(phosphat bind) 667 667 mg PO ONCE Supplement 02/20/20 04/08/24 mg capsule ergocalciferol (vitamin D2) 1,250 50,000 unit PO .COMPLEX Supplement 02/20/20 04/08/24 mcg (50,000 unit) capsule 28 days nifedipine 90 mg tablet,extended 90 mg PO DAILY High blood pressure 02/20/20 04/08/24 release 24 hr carbamazepine 200 mg tablet 200 mg PO QHS unknown 03/25/20 04/08/24 doxazosin 8 mg tablet 8 mg PO DAILY unknown 03/25/20 04/08/24 cyclosporine 25 mg capsule 100 mg PO BID unknown 10/19/21 04/08/24 entecavir 0.5 mg tablet 0.5 mg PO WEEKLY unknown 10/19/21 04/08/24 testosterone cypionate 200 mg/mL 200 mg SQ QMONTH Supplement 10/19/21 04/08/24 intramuscular oil pantoprazole 40 mg tablet,delayed 40 mg PO DAILY GERD 02/13/22 04/08/24 release cholecalciferol (vitamin D3) 1,250 1,250 mcg PO .TIW 04/06/22 04/08/24 mcg (50,000 unit) capsule folic acid 1 mg tablet 1 mg PO DAILY 05/31/22 04/08/24 gabapentin 800 mg tablet 800 mg PO HS 05/31/22 04/08/24 montelukast 10 mg tablet 10 mg PO DAILY 05/31/22 04/08/24 carvedilol 25 mg tablet 25 mg PO ONCE 01/15/24 04/08/24 insulin aspart U-100 100 unit/mL SQ 02/09/24 04/08/24 (3 mL) subcutaneous pen (Novolog FlexPen U-100 Insulin aspart) semaglutide 0.25 mg or 0.5 mg (2 mg SQ 02/09/24 04/08/24 mg/3 mL) subcutaneous pen injector (Ozempic) Previous Rx's ?Medication ?Instructions ?Recorded cyclobenzaprine 10 mg tablet 10 mg PO Q8H PRN Muscle Spasm 10 04/22/20 days #30 tabs azelastine 137 mcg (0.1 %) nasal 1 spray intranasal BID #30 mL 01/01/24 spray amoxicillin 500 mg capsule 500 mg PO BID poss infection 04/08/24 days #20 caps Allergies Allergy/AdvReac Type Severity Reaction Status Date / Time codeine [CODEINE] Allergy Unknown Verified 04/08/24 10:11 [facility] Disclaimer: The information contained in this section may have been updated after the patient was seen, as this information can be updated by other users. Medical History (Updated 04/25/24 @ 21:18 by Thomas Sotomayor MD) Ear drainage Ear drainage right Hard of hearing Retraction of tympanic membrane of left ear Chronic eustachian tube dysfunction Hearing loss in left ear History of left heart catheterization History of transesophageal echocardiography ([facility]) JC (obstructive sleep apnea) Kidney stone Anxiety Mixed conductive and sensorineural hearing loss of both ears Arthritis Diabetes mellitus Memory problem Renal failure Hepatitis History of stomach ulcers Hypertension Sleep apnea Kidney disease Surgical History (Updated 04/08/24 @ 10:22 by MAO Briseno) History of placement of ear tubes History of right heart catheterization History of esophagogastroduodenoscopy History of colonoscopy History of liver transplant History of back surgery History of surgery on lower extremity Family History Other Asthma Diabetes Heart disease Hypertension Kidney disease Social History Smoking Status: Never smoker alcohol intake: never counseling provided: none substance use type: denies use current occupational status: disabled Travel in the last 8 weeks: None household members: family housing: house ROS Obtained: Yes All systems reviewed & no additional complaints except as documented Physical Exam General General appearance: alert Head Head exam: atraumatic and normocephalic Eye Eye exam: Present normal appearance, PERRL and EOMI Neck Neck exam: Present normal inspection, full ROM and trachea midline Respiratory Respiratory exam: Absent respiratory distress, wheezes, stridor, accessory muscle use or prolonged expiratory phase Cardiovascular Cardiovascular exam: Present other (Pulses equal symmetric in upper and lower extremities) Abdominal Exam Abdominal exam: Present soft; Absent distention, tenderness or pulsatile mass Extremities Exam Extremities exam: Absent edema Neurological Exam Neurological exam: Present alert, oriented X3 and CN II-XII intact; Absent motor sensory deficit Skin Skin exam: Present warm and dry; Absent diaphoresis or erythema Medical Decision Making Medical Records Medical records reviewed: Yes I reviewed the patient's medical records. Bello Inquiry Pt receiving controlled substance: No Bello was queried for this patient: No Vital Signs: 04/25/24 18:59 04/25/24 19:30 04/25/24 19:31 Temperature 98.6 F Temperature Source Oral Pulse Rate 100 H Pulse Rate [Right] 104 H 89 Respiratory Rate 20 20 Blood Pressure 122/102 H Blood Pressure [Right Arm] 154/106 H 122/102 H Blood Pressure Mean [Right Arm] 122 108 Blood Pressure Source Blood Pressure Source [Right Arm] Automatic Cuff Blood Pressure Position Blood Pressure Position [Right Arm] Sitting 02 Sat by Pulse Oximetry 96 95 94 L Oxygen Delivery Method Room Air Room Air 04/25/24 20:00 04/25/24 20:00 04/25/24 20:30 Temperature Temperature Source Pulse Rate 88 92 H 88 Pulse Rate [Right] Respiratory Rate 20 20 Blood Pressure 137/92 H 137/92 H 111/67 Blood Pressure [Right Arm] Blood Pressure Mean [Right Arm] Blood Pressure Source Automatic Cuff Automatic Cuff Blood Pressure Source [Right Arm] Blood Pressure Position Supine Sitting Blood Pressure Position [Right Arm] 02 Sat by Pulse Oximetry 94 L 94 L 90 L Oxygen Delivery Method Room Air Room Air 04/25/24 20:31 Temperature Temperature Source Pulse Rate 89 Pulse Rate [Right] Respiratory Rate Blood Pressure 111/67 Blood Pressure [Right Arm] Blood Pressure Mean [Right Arm] Blood Pressure Source Blood Pressure Source [Right Arm] Blood Pressure Position Blood Pressure Position [Right Arm] 02 Sat by Pulse Oximetry 89 L Oxygen Delivery Method Lab Data Lab Results 04/25/24 19:24: VBG pH 7.26 L, VBG pCO2 46.0, VBG pO2 65.5 H, VBG HCO3 20.1 L, V BG Total CO2 21.5 L, VBG O2 Saturation 89.8 H, VBG Base Excess -7.0 L, VBG Lactic Acid 1.9 04/25/24 19:25: WBC 5.1, RBC 3.12 L, Hgb 10.0 L, Hct 33.4 L, MCV 107.3 H, MCH 32.0 H, MCHC 29.9 L, RDW 18.3 H, Plt Count 358, MPV 9.0, Neut % (Auto) 76.6, Lymph % (Auto) 16.6, Will % (Auto) 4.6, Eos % (Auto) 1.3, Baso % (Auto) 0.9, Neut # (Auto) 3.9, Lymph # (Auto) 0.8, Will # (Auto) 0.2, Eos # (Auto) 0.1, Baso # (Auto) 0.1, Sodium 139, Potassium 4.6, Chloride 107, Carbon Dioxide 21 L, A nion Gap 15.6 H, BUN 42 H, Creatinine 8.70 H, Estimated Creat Clear 10, E stimated GFR 7 L*, Est GFR ( Amer) 8 L*, Glucose 265 H, Calcium 8.0 L, Total Bilirubin 0.6, AST 21, ALT 17, Alkaline Phosphatase 217 H, Total Protein 6.8, Albumin 4.0, Globulin 2.8, Albumin/Globulin Ratio 1.4 04/25/24 19:25 04/25/24 19:25 Orders (Tests/Meds): ED MEDICATIONS Discontinued Medications Generic Name Dose Route Start Last Admin Trade Name Freq PRN Reason Stop Dose Admin Ondansetron HCl 4 mg 04/25/24 19:35 04/25/24 19:42 Ondansetron 4mg/2ml Vial IV 04/25/24 19:36 4 mg ONCE ONE Administration ORDERS Category Date Time Status CXR --portable [XR chest portable] Stat Exams 04/25/24 19:21 Completed CBC w/Auto Diff [Complete Blood Count Auto Diff] Stat Lab 04/25/24 19:25 Completed CMP [Comprehensive Metabolic Panel] Stat Lab 04/25/24 19:25 Completed VBG [Venous Blood Gas] Stat RT 04/25/24 19:24 Completed Medical Decision Narrative: 49-year-old male with history of liver transplant secondary to NAFLD, kidney failure secondary to antirejection meds currently on 3 times weekly dialysis via left subclavian tunneled dialysis catheter, hypertension, hyperlipidemia, JC presenting with concern for dialysis catheter malfunction. Patient states Last dialysis was yesterday, he almost finished the entire session other than 8 total minutes. States that he called [facility], where his tunneled dialysis catheter was placed, regarding this issue and they stated that he should be seen in the emergency department and basic labs to be checked. If hyperkalemic, etc., should be transferred. Patient currently resting at baseline, has no acute complaints. He is mostly concerned because he states that if he misses dialysis tomorrow, he will be real bad off, and feels poorly when he misses clockwork dialysis. History was obtained via conversation with patient. On arrival, patient hemodynamically stable, alert, oriented x4, appropriate, GCS 15, moving all extremities spontaneously, pupils equal and reactive to light. Full physical exam performed and significant for well- appearing male who is in no acute distress. Cardiopulmonary exam within normal limits. No obvious murmurs gallops or rubs. Lungs are clear to auscultation bilaterally. Speaking in full sentences. Differential includes worried well, fluid overload, hyperkalemia, acidosis, tunneled dialysis catheter with chemical obstruction, tunneled dialysis catheter thrombus, among others. Patient placed on continuous cardiac monitoring and continuous pulse ox with initial blood pressure 154/100, heart rate 1 4, saturation 96% on room air. Independent interpretation of EKG shows sinus rhythm first-degree AV block with HI interval 235, QRS 110, QTc 427. Ventricular rate 92 bpm with narrow complex. No peaked T waves concerning for acute hyperkalemia, and patient appears to have EKGs consistent with first-degree AV block going back to 2021. Workup independently interpreted and significant for nonactionable CBC or chemistry, patient has no anion gap. VBG without actionable acidosis. Chest x-ray without obvious fluid overload, catheter in place. On reevaluation, patient still resting comfortably. I contacted [facility] transplant surgery, renal transplant for further guidance. They recommended outpatient follow-up with his dialysis center here in [place] for outpatient placement of tunneled dialysis catheter. Patient states that he tried that and they are unable to place it. It was recommended that patient try to follow-up with his outpatient transplant team tomorrow for further guidance, they stated that they have a clinic right outside of [facility] and is able to place tunneled dialysis catheters on an outpatient basis and they may be able to do it tomorrow. This was relayed to patient. He voices understanding. Because patient at baseline without signs or symptoms of clinical decompensation, deemed appropriate for discharge. Results were relayed to patient who voiced understanding and were agreeable to outpatient management and follow up. I discussed my clinical impression with patient and answered all questions. At this time, the evidence for any other entities in the differential is insufficient to warrant any further testing or ED observation. This was explained as well. Advisory was given that persistent or worsening symptoms require further evaluation. I confirmed the understanding of this discussion. Office Clin Asst disclaimer Much of this encounter note is an electronic clinical trials nurse spoken language to printed text. Electronic clinical trials nurse of the spoken language may permit errors. Although I have reviewed the note, some errors may still exist. Critical Care Critical Care Time Critical Care Time: No
--- NOTE | 2024-04-25 19:25 | ECG_ITS ---
APPROVED REPORT Exam: Resting ECG HR:92 bpm ECG Measurements Heart Rate 92 AXES OR 235 P 44 QRSd 110 QRS 62 QT 377 T 85 QTc 427 Conclusion SINUS RHYTHM WITH FIRST DEGREE AV BLOCK Electronically signed by : CARLOS A JOSEPH, 04/25/2024 20:40:15
[2024-04-25 19:41] LABS: Lactate Venous 1.9 mmol/L (0.4-2.0); VBG HCO3 20.1 mmol/L (23-30); VBG Oxygen Saturation 89.8 % (50-70); VBG PH 7.26 mmol/L (7.31-7.41); VBG PO2 65.5 mmol/L (28-40); VBG Total CO2 21.5 mmol/L (23-27)
[2024-04-25] MEDS: ONDANSETRON 4MG/2ML VIAL 4 MG IV (19:42)
[2024-04-25 19:47] LABS: Chloride 107 mmol/L (98-107)
[2024-04-25 19:48] LABS: Potassium 4.6 mmoL/L (3.5-5.1); Sodium 139 mmol/L (136-145)
[2024-04-25 19:49] LABS: Basophils # 0.1 K/mm3 (0-0.2); Basophils % 0.9 % (0.1-2.0); Eosinophils # 0.1 K/mm3 (0.0-0.4); Eosinophils % 1.3 % (0.1-12.0); Hematocrit 33.4 % (42.0-52.0); Lymphocytes # 0.8 K/mm3 (0.7-4.5); Lymphocytes % 16.6 % (10-50); Mean Corpuscular HGB Conc 29.9 g/dL (31.8-35.4); Mean Corpuscular Volume 107.3 fl (80-94); Monocytes # 0.2 K/mm3 (0.1-1.0); Monocytes % 4.6 % (1.7-9.3); Neutrophils # 3.9 K/mm3 (1.8-7.8); Neutrophils % 76.6 % (37.0-80.0); Platelet Count 358 K/mm3 (142-424); Red Blood Count 3.12 M/mm3 (4.60-6.20); Red Cell Distribution Width 18.3 % (11.5-17.5); White Blood Count 5.1 K/mm3 (4.8-10.8)
[2024-04-25 19:50] LABS: Blood Urea Nitrogen 42 mg/dl (9-20); Creatinine Clearance Estimated 10 mL/min (50-200); Estimated Glomerular Filt Rate 7 ml/min (>60); GFR (African American) 8 ML/MIN (>60)
[2024-04-25 19:51] LABS: Alanine Aminotransferase 17 U/L (12-78); Albumin/Globulin Ratio 1.4 (1.1-1.8); Alkaline Phosphatase 217 U/L (38-126); Anion Gap 15.6 mEq/L (5-15); Aspartate Amino Transferase 21 U/L (17-59); Bilirubin,Total 0.6 mg/dl (0.2-1.3); Carbon Dioxide 21 mmol/L (22.0-30.0); Globulin 2.8 g/dL (1.3-3.2); Glucose 265 mg/dl (74-100); Total Protein,Serum 6.8 g/dl (6.3-8.2)
== END 2024-04-25 21:30 | disposition home or self-care (01) ==
PROVIDERS: Emergency Provider Emergency Medicine; PCP Family Medicine
DX: T82.41XA Breakdown (mechanical) of vascular dialysis catheter, initial encounter (principal); N18.6 End stage renal disease; Z99.2 Dependence on renal dialysis; Z94.4 Liver transplant status
CPT/HCPCS: 71045; 80053; 82803; 85025; 93005; 96374; 99284; J2405

== ENCOUNTER 2024-07-12 12:08 | Outpatient (CLI) | payer MEDICARE, MEDICAID, SELFPAY ==
--- OUTSIDE RECORDS SUMMARY | 2024-07-12 12:12 | XMS_ITS | Encounter Summary ---
Author Organization [facility] Address [address] [place] [address] Care Team Providers Care Cable Maintainer Name Role Phone Edgar Fournier MD Primary Care Provider [phone] Reason for Visit * Reason Onset Date Comments RIK MONTAÑO 11/28/2023 Encounter Details Date Type Department Care Team (Late st Contact Info) Description 11/28/2023 Telephone [facility] [address] [id number] Anurag Brown APRN [address] [id number] RIK [place]O Social History Tobacco Use Types Packs/Day Years Used Date Smoking Tobacco: Never Passive Smoke Exposure: Never Smokeless Tobacco: Never Alcohol Use Standard Drinks/Week Comments Never 0 (1 standard drink = 0.6 oz pur e alcohol) AUDIT-C Answer Date Recorded Q1: How often do you have a drink containing alcohol? Never 10/27/2023 Q2: How many drinks containi ng alcohol do you have on a typical day when you are drinking? Patient does not drink Q3: How often do you have si x or more drinks on one occasion? Never 10/27/2023 Abuse Screen Answer Date Recorded Feels Unsafe at Home or Work/School no 10/26/2023 Feels Threatened by Someone no 10/12 Does Anyone Try to Keep You From Having Contact with Others or Doing Things Outside Your Home? no 10/26/2023 Physical Signs of Abuse Present no 10/26/2023 Housing Stability Answer Date Recorded Current Living Arrangements home 10/12 Potentially Unsafe Housing Conditions Not on gen e 10/27/2023 Family and Community Support Answer Gilbert e Recorded Help with Day-to-Day Activities Not on file 05/21/2023 Lonely or Isolated Not on file 05/21/2023 Employment Answer Date Recorded Do you want help finding or keeping work or a alta b? Not on file 05/21/2023 Disabilities Answer Date Recorded Difficulty Concentrating, Remembering or Making Decisions no 10/27/2023 Difficulty Managing Errands Independently no 10/27/2023 Education Answer Date Recorded Help with school or training? Not on file Preferred Language Not on file 05/21/2023 Sex and Gender Information Value Date Recorded Sex Assigned at Not on file Legal Sex Male 12:05 PM EDT Gender Identity Not on file Sexual Orientation Not on file documented as of this encounter Miscellaneous Notes * Telephone Encounter - Valeria Walton MA - 11/28/2023 2:12 PM EDT Working on this request * Telephone Encounter - Viv Bianchi RegSched Rep - 11/28/2023 1:25 PM EDT Caller: ADRIANNE SERNA Relationship: Other Best call back number: [phone] (PATIENT) Equipment requested: BIPAP ST MACHINE Reason for the request: PATIENTS MACHINE NOT WORKING PROPERLY Prescribing Provider: ANURAG BROWN APRN Additional information or concerns: PLEASE CALL PATIENT TO LET HIM KNOW HIS REQUEST HAS BEEN SUBMITTED TO PATIENTS AID, AND APPROVED. ADRIANNE FROM [employer] SAYS THAT SHE DOES NOT SEE ANY AUTHORIZATION ON THE BIPAP ST. MACHINE AND MUST BESUBMITTED BY PATIENTS AIDE. PLEASE REQUEST THAT PATIENTS AIDE SENDS BIPAP REQUEST IN URGENT TO RUDY. documented in this encounter Plan of Treatment Not on file documented as of this encounter Visit Diagnoses Not on filedocumented in this encounter Care Teams Cable Maintainer Relationship Specialty Start Date End Date Edgar Fournier MD [address] [place] [address] [place] [address] PCP - General Family Medicine 04/27/20 documented as of this encounter
--- OUTSIDE RECORDS SUMMARY | 2024-07-12 12:12 | XMS_ITS | Clinical Summary ---
Author Organization [facility] Address [address] [place] [address] Care Team Providers Care Fur Designer Name Role Phone Edgar Fournier MD Primary Care Provider [phone] Allergies Active Allergy Reactions Criticality Noted Date Comments Calcitriol GI Intolerance 09/20/2023 Codeine Anxiety,Unknown - Lo w Severity Medium 06/02/2014 Tacrolimus Other (See Comments),Unknown - High Severity High 03/02/2021 Anxious feeling and muscle jerking. TOLERATED ENVARSUS BETTER THAN PROGRAF. Medications NIFEdipine CC (ADALAT CC) 90 MG 24 hr tablet Take 1 tablet by mouth 2 (Two) Times a Day. Active gabapentin (NEURONTIN) 800 MG tablet Take 0.5 tablets by mouth Every Night. Active aspirin 81 MG chewable tablet Chew 1 tablet Daily. Active doxazosin (CARDURA) 8 MG tablet Take 1 tablet by mouth At Night As Needed. Active carBAMazepine (TEGretol) 200 MG tablet Take 1 tablet by mouth Every Night. For feet cramps Active methocarbamol (ROBAXIN) 500 MG tablet Take 1 tablet by mouth 1 (One) Time. Active hydrALAZINE (APRESOLINE) 100 MG tablet Take 1 tablet by mouth 3 (Three) Times a Day. 90 tablet 08/14/19 24 Active carvedilol (COREG) 25 MG tablet Take 2 tablets (50 mg total) by mouth 2 times a day with meals. Active entecavir (BARACLUDE) 0.5 MG tablet Take 1 tablet by mouth Every 7 (Seven) Days. Active folic acid (FOLVITE) 1 MG tablet Take 1 tablet by mouth Daily. 04/24/20 23 Active montelukast (SINGULAIR) 10 MG tablet Take 1 tablet by mouth Daily. 04/14/20 Active pantoprazole (PROTONIX) 40 MG EC tablet Take 1 tablet by mouth 2 (Two) Times a Day. Active Continuous Blood Gluc Sensor (FreeStyle Leonel 2 Sensor) [facility] USE DIRECTED CHANGE EVERY 14 DAYS DIRECTED 09/07/19 24 Active cholecalciferol (VITAMIN D3) 1.25 MG (33544 UT) capsule Take 1 capsule by mouth 3 (Three) Times a Week. 04/24/20 23 Active fenofibrate micronized (LOFIBRA) 134 MG capsule Take 1 capsule by mouth Daily. Active ondansetron ODT (ZOFRAN-ODT) 8 MG disintegrating tablet Take 1 tablet by mouth 3 (Three) Times a Day As Needed. Active B-D 3CC LUER-LISSETTE SYR 25GX1/2 25G X 1-1/2 3 ML misc 09/11/19 Active Xphozah 20 MG tablet Take 30 mg by mouth 2 (Two) Times a Day. 07/27/20 Active Depo-Testosterone 200 MG/ML injection inject 1 Milliliter intramuscularly once monthly Active ALPRAZolam (XANAX) 0.5 MG tablet Take 1 tablet by mouth Daily As Needed for Anxiety. 05/05/20 Active cycloSPORINE modified (NEORAL) 25 MG capsule Take 4 capsules by mouth 2 (Two) Times a Day. 04/28/20 Active insulin glargine (LANTUS, SEMGLEE) 100 UNIT/ML injection Inject 30 Units under the skin into the appropriate area as directed Every Night. Active insulin regular (humuLIN R,novoLIN R) 100 UNIT/ML injection Inject 5 Units under the skin into the appropriate area as directed 3 (Three) Times a Day Before Meals. Active cinacalcet (SENSIPAR) 90 MG tablet TAKE 1 TABLET BY MOUTH DAILY WITH EVENING MEAL 09/20/19 24 Active mycophenolate (CELLCEPT) 250 MG capsule Take 1 capsule by mouth 2 (Two) Times a Day. 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 Leukocytosis 04/28/2020 Family History Relation Name Status Comments Father Mother Alive Social History Tobacco Use Types Packs/Day Years [...] on file Sexual Orientation Not on file Last Filed Vital Signs Vital Sign Reading Time Taken Comments Blood Pressure 124/79 11/02/2023 3:45 PM EDT Pulse 77 11/02/2023 4:57 PM EDT Temperature 36.8 ??C (98.3 ??F) 11/02/2023 3:30 PM ED T Respiratory Rate 20 11/02/2023 4:57 PM EDT Oxygen Saturation 88% 11/02/2023 3:45 PM EDT Inhaled Oxygen Concentration - - Weight 122 kg (269 lb) 11/01/2023 6:14 AM EDT Height 175.3 cm (5' 9 ) 10/27/2023 1:55 PM EDT Body Mass Index 39.72 10/27/2023 1:55 PM EDT Plan of Treatment Health Maintenance Due Date Last Done Comments BMI FOLLOWUP 1974 COLOGUARD 1974 COLON CANCER SCREENING 5 YEA R SIGMOIDOSCOPY [address] COLONOGRAPHY 1974 FIT Testing (1 year) 1974 Pneumococcal Vaccine 0-64 (1 of 2 - PCV) 02/26/1980 DIABETIC EYE EXAM 02/26/1984 URINE MICROALBUMIN 02/26/1984 Hepatitis B (1 of 3 - 19+ 3- dose series) 1993 TDAP/TD VACCINES (1 - Tdap) 1993 ZOSTER VACCINE (1 of 2) 1993 ANNUAL WELLNESS VISIT 05/13/2020 FECAL OCCULT BLOOD TEST 05/02/2021 05/02/2020 COVID-19 Vaccine (3 - Modern a risk series) 10/26/2021 09/28/2021, 08/17/2021 HEMOGLOBIN A1C 02/11/2024 08/12/2023, 08/0 11/2021, 09/21/2021, Additional history exists INFLUENZA VACCINE 02/12/2024 08/08/2017 LIPID PANEL 09/26/2024 09/26/2023, 07/16, 04/07/2022, Additional history exists COLONOSCOPY 10/20/2026 10/20/2016 COLORECTAL CANCER SCREENING 10/20/2026 HEPATITIS C SCREENING Completed 10/27/2023 , 03/16/2023, 03/16/2023, Additional history exists Medical Devices Implanted Type Area Sorting And Folding Supervisor Device Identifier Shelf Expiration Date Model / Serial / Lot Kt Seal Hemos Abs Floseal Matrx Fast/Prep 10ml - [id number] Implanted:Qty : 1 on 04/29/2020 by Yinka Garnica MD at [facility] Implant N/A: Spine Lumbar [facility] 08/18/2021 [id number] / / [id number] Hemost Abs Surgifoam Sz100 8x12 10mm - [id number] Implanted:Qty : 1 on 04/29/2020 by Yinka Garnica MD at [facility] Implant N/A: Spine Lumbar [employer] 1974 / / Procedures Procedure Name Priority Date/Time Associated Diagnosis Comments HEPATITIS PANEL, ACUTE Urgent 10/27/2023 5:00 AM EDT LIPID PANEL Routine 09/26/2023 Elevated cholesterol with high triglycerides HEMOGLOBIN A1C Routine 08/12/2023 5:59 AM EST OCCULT BLOOD X 1, STOOL Routine 05/02/2020 12:49 PM EDT from Last 3 Months or Most Recently Relevant to Health Maintenance Results * Hepatitis Panel, Acute (10/27/2023 5:00 AM EDT) Hepatitis B Surface Ag Non-Reacti ve Non-Reacti ve 10/27/2023 6:02 AM EDT [facility] Hep A IgM Non-Reacti ve Non-Reacti ve 10/27/2023 6:02 AM EDT [facility] Hep B C IgM Non-Reacti ve Non-Reacti ve 10/27/2023 6:02 AM EDT [facility] Hepatitis C Ab Non-Reacti ve Non-Reacti ve 10/27/2023 6:02 AM EDT [facility] Blood Venipuncture / Unknown 10/27/2023 5:00 AM EDT 10/27/2023 5:29 AM EDT Narrative [facility] - 10/27/2023 6:02 AM EDT Results may be falsely decreased if patient taking Biotin. Jennifer Davison MD LAB BLOOD ORDERABLES Final Resul t Performing Organization Address City/State/[facility] de Phone Number [facility]
[address] [place] [address], * Lipid Panel (09/26/2023) Blood Claudia Calles MD LAB BLOOD ORDERABLES Final R esult Performing Organization Address [facility] de Phone Number [facility]
[address] [place] [address], * (ABNORMAL) Hemoglobin A1c (08/12/2023 5:59 AM EST) Hemoglobin A1C 6.50(H) 4.80 - 5.60 % 08/12/2023 6:49 AM EST [facility] Blood Venipuncture / Unknown 08/12/2023 5:59 AM EST 08/12/2023 6:31 AM EST Narrative [facility] - 08/12/2023 6:49 AM EST Hemoglobin A1C Ranges: Increased Risk for Diabetes ??5.7% to 6.4% Diabetes ? >= 6.5% Diabetic Goal ?< 7.0% Kaila Jhaveri MD LAB BLOOD ORDERABLES Fin al Result Performing Organization Address [facility] Co de Phone Number [facility]
[address] [place] [address], * (ABNORMAL) Occult Blood X 1, Stool - Stool, Per Rectum (05/02/2020 12:49 PM EDT) Fecal Occult Blood Positive( A) Negative DISK DIFFUSION 05/02/2020 1:50 PM EDT [facility] Stool Specimen from rectum / Unknown Collection / Unknown 05/02/2020 12:49 PM EDT 05/02/2020 1:01 PM EDT us Odette Grace MD BODY FLUIDS AND STOOLS ORDERABLE S Final Result [facility] Night Out [facility]
[address] [place] [address], [place] [phone] from Last 3 Months or Most Recently Relevant to Health Maintenance Insurance MEDICAID [place] [employer] Advance Directives * CPR (Attempt to Resuscitate) (Latest Code Status on File) Date Activated Date Inactivated Comments 10/26/2023 3:56 AM 11/02/2023 8:33 PM Question Answer Comments Code Status (Patient has no pulse and is not breathing): CPR (Attempt to Resuscitate) Medical Interventions (Patie nt has pulse or is breathing): Full Support Level Of Support Discussed With: Patient * CPR (Attempt to Resuscitate) Date Activated Date Inactivated Comments 08/11/2023 8:27 AM 08/14/2023 12:52 PM Question Answer Comments Code Status (Patient has no pulse and is not breathing): CPR (Attempt to Resuscitate) Medical Interventions (Patie nt has pulse or is breathing): Full Support Level Of Support Discussed With: Patient * CPR (Attempt to Resuscitate) Date Activated Date Inactivated Comments 04/28/2020 11:25 AM 05/13/2020 6:08 PM Question Answer Comments Code Status (Patient has no pulse and is not breathing): CPR (Attempt to Resuscitate) Medical Interventions (Patie nt has pulse or is breathing): Full Care Teams Fur Designer Relationship Specialty Start Date End Date Edgar Fournier MD [address] [place] [address] PCP - General Family Medicine 04/27/20
--- OUTSIDE RECORDS SUMMARY | 2024-07-12 12:13 | XMS_ITS | Encounter Summary ---
Author Organization [facility] Address [address] [place] [id number] Care Team Providers Care Supplier Specialist Name Role Phone Edgar Fournier MD Primary Care Provider [phone] Reason for Visit * Reason Comments fistula problem * Auth/Cert (Routine) Specialty Diagnoses / Procedures Referred By Contac t Referred To Contact Diagnoses Arm pain Referral ID Status Reason Start Date Expiration Date Visits Re quested Visits Authorized [id number] 1 1 Encounter Details Date Type Department Care Team (Late st Contact Info) Description 10/25/2023 11:48 PM EDT - 11/02/2023 6:27 PM EDT Hospital Encounter [address] [place] [id number] Terry Burgess MD [address] [place], [place] [id number] Beulah Fleming DO Cordray, Ann, MD [address] [place] [id number] [place] [address] [place] [id number] [place] [address] [place] [phone] Occlusion of arteriovenous dialysis graft (Primary Dx); Cellulitis of left arm; Pneumonia of right lower lobe due to infectious organism; ESRD on hemodialysis Discharge Disposition: Left Against Medical Advice Social History Tobacco Use Types Packs/Day Years [...] on file documented as of this encounter Last Filed Vital Signs Vital Sign Reading [...] Mass Index 39.72 10/27/2023 1:55 PM EDT documented in this encounter Discharge Summaries * Chiquita PorterCRISTI - 11/02/2023 6:27 PM EDT Images from the original note were not included. [facility] Medicine Services ELOPEMENT AGAINST MEDICAL ADVICE Patient Name: Aiden Stauffer Jr. : 1975 Date of Admission: 10/25/2023 Date of Elopement: 11/02/2023 Primary Care Physician: Edgar Fournier MD Consults Date and Time Order Name Status Description 10/27/2023 7:54 AM Inpatient Infectious Diseases Consult Completed 10/26/2023 6:26 AM Inpatient Nephrology Consult Completed 10/26/2023 3:51 AM Inpatient General Surgery Consult Completed Hospital Course Presenting Problem: Arm pain [M79.603] Active Hospital Problems Diagnosis POA ??? Arm pain [M79.603] Yes ??? Pneumonia [J18.9] Yes ??? Hyperkalemia [E87.5] Yes ??? KIM (nonalcoholic steatohepatitis) [K75.81] Yes ??? History of liver transplant [Z94.4] Not Applicable ??? Immunosuppression [D84.9] Yes ??? Type 2 diabetes mellitus [E11.9] Yes ??? ESRD (end stage renal disease) [N18.6] Yes Resolved Hospital Problems No resolved problems to display. Hospital Course: Aiden Stauffer Jr. is a 48 y.o. 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 Gruber, who presented for evaluation of worsening pain and swelling and AV fistula graft over the past 48 hours. Also found to have right lower lobe pneumonia. ESRD on HD Malfunctioning AVF with concern for possible infected graft Gram Positive Bacteremia -nephrology following, continue HD per nephrology -Dr. Gruber took for AVF ligation 10/26 -blood cultures NGTD x3d -continue IV Abx per ID -R chest HD catheter out; HD nontunneled catheter replaced 11/01/2023 -ECHO TTE with normal systolic function and no vegetation noted --Renal diet with fluid restriction less than 1500 mL/day --Waiting for infection to clear before a another tunneled cath placed --Dialyzed 10/31 in the evening --Follow up with Dr Sky @ [facility] after discharge --AM labs Hyperkalemia --K 5.7 --Lokelma BID x2 doses 11/01 --Did not receive Lokelma dose on 10/31 d/t dialysis --AM labs RLL Pneumonia -resp PCR negative, blood cultures negative -continue ABX per above -as needed pulmonary toilet, added mucinex --Scheduled and PRN nebulizers -will need to follow-up for resolution with repeat imaging outpatient History of KIM cirrhosis s/p liver transplant -continue antirejection meds: CellCept, mycophenolate -has been on entecavir, took last on 10/24 and takes weekly -follows at for transplant -CT abd/pelvis with no acute abnormality T2DM w/A1c 6.5 --24H glucose 118-223 --SSI H/o discitis/epidural abscess (2019) -s/p laminectomy and I&D of abscess by Dr. Garnica. Followed by ID/Dr. Rodriguez for his complete course of ABX JC -CPAP Anemia- -monitor hemoglobin Morbid obesity -complicates all aspects of care Patient decided he wanted to go home that day without having dialysis chair set up, because he has not slept while he has been here. Signed AMA form. Patient left AMA prior to completion of evaluation and management Day of Discharge HPI: Patient left AMA prior to completion of evaluation and management Vital Signs: Temp: [97 ??F (36.1 ??C)-98.6 ??F (37 ??C)] 98.6 ??F (37 ??C) Heart Rate: [73-94] 76 Resp: [12-18] 18 BP: (106-176)/(65-86) 124/72 Flow (L/min): [3-5] 5 Physical Exam (if applicable): See previous 11/02/2023 note Pending Labs Order Current Status Blood Culture - Blood, Arm, Right Preliminary result Discharge Details Discharge Disposition: Patient left AMA prior to completion of evaluation and management, therefore discharge planning remains incomplete including absence of any needed discharging medications, testing arrangements or follow up unless otherwise specified Future Appointments Date Time Provider Department Center 12/06/2023 1:30 PM PAT 1 SHADIA SH[facility]IA [facility] Chiquita Porter APRN 11/05/23 Cosigned by Kevin Muller MD at 11/05/2023 12:07 PM EDT Associated attestation - Kevin Muller MD - 11/05/2023 12:07 PM EDT I have reviewed this documentation and agree. * Eugenie Carroll OT - 10/26/2023 3:00 PM EDT Images from the original note were not included. Acute Care - Occupational Therapy Discharge [place] Patient Name: Aiden Stauffer Jr. : 1975 Today's Date: 10/26/2023 Admit Date: 10/25/2023 Visit Dx: ICD-10-CM ICD-9-CM 1. Occlusion of arteriovenous dialysis graft T82.898A 996.74 2. Cellulitis of left arm L03.114 682.3 3. Pneumonia of right lower lobe due to infectious organism J18.9 486 4. ESRD on hemodialysis N18.6 585.6 Z99.2 V45.11 Patient Active Problem List Diagnosis Sepsis KIM (nonalcoholic steatohepatitis) History of liver transplant Immunosuppression Type 2 diabetes mellitus Altered mental state ESRD (end stage renal disease) Hyponatremia Discitis Epidural abscess Leukocytosis AVF (arteriovenous fistula) Malfunction of arteriovenous dialysis fistula Arm pain Pneumonia Past Medical History: Diagnosis Date Diabetes mellitus Dialysis patient Hemorrhage THROAT VARICIES Kidney failure Liver transplanted Past Surgical History: Procedure Laterality Date ARTERIOVENOUS FISTULA Left 2019 CARDIAC CATHETERIZATION times 2022 CHOLECYSTECTOMY ENDOSCOPY N/A 05/04/2020 Procedure: ESOPHAGOGASTRODUODENOSCOPY; Surgeon: Dewey Betancourt MD; Location: [facility] END[facility]COPY; Service: Gastroenterology; Laterality: N/A; LUMBAR LAMINECTOMY DISCECTOMY DECOMPRESSION N/A 04/29/2020 Procedure: LUMBAR LAMINECTOMY DISCECTOMY DECOMPRESSION POSTERIOR L4-5; Surgeon: Yinka Garnica MD; Location: [facility] OR; Service: Neurosurgery; Laterality: N/A; General Information Row Name 10/26/23 1506 OT Time and Intention Document Type discharge evaluation/summary - Mode of Treatment occupational therapy - Row Name 10/26/23 1506 General Information Patient Profile Reviewed yes - Prior Level of Function independent:;ADL's;gait;transfer;community mobility;bed mobility;all household mobility Pt reports he has FWW, SPC, and scooter that he uses PRN. Has shower chair and GB in bathroom. assist w/ 1 step into shower and LB dressing PRN. - Existing Precautions/Restrictions no known precautions/restrictions - Barriers to Rehab none identified - Row Name 10/26/23 1506 Living Environment People in Home spouse;child(paddy), adult -[facility] Name 10/26/23 1506 Home Main Entrance Number of Stairs, Main Entrance none -[facility] Name 10/26/23 1506 Stairs Within Home, Primary Number of Stairs, Within Home, Primary none -[facility] Name 10/26/23 1506 Cognition Orientation Status (Cognition) oriented x 4 - Row Name 10/26/23 1506 Safety Issues, Functional Mobility Comment, Safety Issues/Impairments (Mobility) n/a - User Dyer (r) = Recorded By, (t) = Taken By, (c) = Cosigned By Initials Name Provider Type Eugenie Lopez OT Occupational Therapist Mobility/ADL's Row Name 10/26/23 1507 Bed Mobility Comment, (Bed Mobility) Pt up ad shelia upon entering room - Row Name 10/26/23 1507 Transfers Transfers sit-stand transfer;stand-sit transfer - Row Name 10/26/23 1507 Sit-Stand Transfer Sit-Stand [place] (Transfers) independent - Assistive Device (Sit-Stand Transfers) other (see comments) None -[facility] Name 10/26/23 1507 Stand-Sit Transfer Stand-Sit [place] (Transfers) independent - User Dyer (r) = Recorded By, (t) = Taken By, (c) = Cosigned By Initials Name Provider Type Eugenie Lopez OT Occupational Therapist Obj/Interventions [facility] Name 10/26/23 1508 Sensory Assessment (Somatosensory) Sensory Assessment (Somatosensory) UE sensation intact -[facility] 10/26/23 1508 Range of Motion Comprehensive General Range of Motion bilateral upper extremity ROM WFL -[facility] Name 10/26/23 1508 Strength Comprehensive (MMT) Comment, General Manual Muscle Testing (MMT) Assessment BUE MMT grossly 5/5 -[facility] Name 10/26/23 1508 Balance Balance Assessment sitting static balance;sitting dynamic balance;sit to stand dynamic balance;standing static balance;standing dynamic balance - Static Sitting Balance independent - Dynamic Sitting Balance independent - Position, Sitting Balance unsupported - Sit to Stand Dynamic Balance independent - Static Standing Balance independent -KL Dynamic Standing Balance independent - Position/Device Used, Standing Balance unsupported -KL Balance Interventions sitting;standing;sit to stand;supported;static;dynamic;occupation based/functional task - User Dyer (r) = Recorded By, (t) = Taken By, (c) = Cosigned By Initials Name Provider Type Eugenie Lopez OT Occupational Therapist Goals/Plan No documentation. Clinical Impression [facility] 10/26/23 1509 Pain Assessment Pretreatment Pain Rating 0/10 - no pain - Posttreatment Pain Rating 0/10 - no pain -[facility] Name 10/26/23 1509 Plan of Care Review Plan of Care Reviewed With patient [facility] Outcome Evaluation Pt presents to OT latoya parson. No therapy needs identified at this time. Please reconsult if there is a change in medical status. -[facility] Name 10/26/23 1509 Therapy Assessment/Plan (OT) Criteria for Skilled Therapeutic Interventions Met (OT) no problems identified which require skilled intervention -[facility] Name 10/26/23 1509 Therapy Plan Review/Discharge Plan (OT) Anticipated Discharge Disposition (OT) home -[facility] 10/26/23 1509 Positioning and Restraints Pre-Treatment Position standing in room -KL Post Treatment Position bed -KL In Bed sitting EOB;call light within reach;encouraged to call for assist pt up ad shelia - User Dyer (r) = Recorded By, (t) = Taken By, (c) = Cosigned By Initials Name Provider Type Eugenie Lopez OT Occupational Therapist Outcome Measures Row Name 10/26/23 1513 How much help from another is currently needed... Putting on and taking off regular lower body clothing? 4 -KL Bathing (including washing, rinsing, and drying) 4 -KL Toileting (which includes using toilet bed villanueva or urinal) 4 -KL Putting on and taking off regular upper body clothing 4 -KL Taking care of personal grooming (such as brushing teeth) 4 -KL Eating meals 4 -KL AM-PAC 6 Clicks Score (OT) 24 - Row Name 10/26/23 1518 How much help from another person do you currently need... Turning from your back to your side while in flat bed without using bedrails? 4 -ES Moving from lying on back to sitting on the side of a flat bed without bedrails? 4 -ES Moving to and from a bed to a chair (including a wheelchair)? 4 -ES Standing up from a chair using your arms (e.g., wheelchair, bedside chair)? 4 -ES Climbing 3-5 steps with a railing? 4 -ES To walk in hospital room? 4 -ES AM-PAC 6 Clicks Score (PT) 24 -ES Highest Level of Mobility Goal 8 --> Walked 250 feet or more -ES Row Name 10/26/23 1518 10/26/23 1513 Functional Assessment Outcome Measure Options AM-PAC 6 Clicks Basic Mobility (PT) -ES AM-PAC 6 Clicks Daily Activity (OT)- User Dyer (r) = Recorded By, (t) = Taken By, (c) = Cosigned By Initials Name Provider Type Selina Valente, PT Physical Therapist Eugenie Lopez OT Occupational Therapist Occupational Therapy Education Title: PT OT LEAD CASTER Therapies (In Progress) Topic: Occupational Therapy (In Progress) Point: ADL training (Done) Description: Instruct learner(s) on proper safety adaptation and remediation techniques during self care or transfers. Instruct in proper use of assistive devices. Learning Progress Summary Patient Acceptance, E, DU by MATTEO at 10/26/2023 1513 Point: Home exercise program (Not Started) Description: Instruct learner(s) on appropriate technique for monitoring, assisting and/or progressing therapeutic exercises/activities. Learner Progress: Not documented in this visit. Point: Precautions (Done) Description: Instruct learner(s) on prescribed precautions during self-care and functional transfers. Learning Progress Summary Patient Acceptance, E, DU by at 10/26/2023 1513 Point: Body mechanics (Done) Description: Instruct learner(s) on proper positioning and spine alignment during self-care, functional mobilityactivities and/or exercises. Learning Progress Summary Patient Acceptance, E, DU by at 10/26/2023 1513 User Dyer Initials Effective Dates Name Provider Type [facility] 09/18/23 - Eugenie Carroll OT Occupational Therapist OT OT Recommendation and Plan Plan of Care Review Plan of Care Reviewed With: patient Outcome Evaluation: Pt presents to OT evbrent indep. No therapy needs identified at this time. Please reconsult if there is a change in medical status. Plan of Care Reviewed With: patient Outcome Evaluation: Pt presents to OT eval indep. No therapy needs identified at this time. Please reconsult if there is a change in medical status. Time Calculation: Evaluation Complexity (OT) Review Occupational Profile/Medical/Therapy History Complexity: brief/low complexity Assessment, Occupational Performance/Identification of Deficit Complexity: 1-3 performance deficits Clinical Decision Making Complexity (OT): problem focused assessment/low complexity Overall Complexity of Evaluation (OT): low complexity Time Calculation- OT Row Name 10/26/23 1516 Time Calculation- OT OT Start Time 1500 -KL OT Received On 10/26/23 -KL Untimed Charges OT Eval/Re-eval Minutes 35 -KL Total Minutes Untimed Charges Total Minutes 35 -KL Total Minutes 35 -KL User Dyer (r) = Recorded By, (t) = Taken By, (c) = Cosigned By Initials Name Provider Type Eugenie Lopez OT Occupational Therapist Therapy Charges for Today Code Description Service Date Service Provider Modifiers Qty [id number] OT EVAL LOW COMPLEXITY 3 10/26/2023 Eugenie Carroll OT GO 1 OT Discharge Summary Anticipated Discharge Disposition (OT): home Reason for Discharge: Independent Outcomes Achieved: Refer to plan of care for updates on goals achieved Discharge Destination: Home Eugenie Carroll OT 10/26/2023 * Selina Lucas, PT - 10/26/2023 2:53 PM EDT Images from the original note were not included. Patient Name: Aiden Stauffer Jr. : 1975 Today's Date: 10/26/2023 Admit Date: 10/25/2023 Visit Dx: ICD-10-CM ICD-9-CM 1. Occlusion of arteriovenous dialysis graft T82.898A 996.74 2. Cellulitis of left arm L03.114 682.3 3. Pneumonia of right lower lobe due to infectious organism J18.9 486 4. ESRD on hemodialysis N18.6 585.6 Z99.2 V45.11 Patient Active Problem List Diagnosis Sepsis KIM (nonalcoholic steatohepatitis) History of liver transplant Immunosuppression Type 2 diabetes mellitus Altered mental state ESRD (end stage renal disease) Hyponatremia Discitis Epidural abscess Leukocytosis AVF (arteriovenous fistula) Malfunction of arteriovenous dialysis fistula Arm pain Pneumonia Past Medical History: Diagnosis Date Diabetes mellitus Dialysis patient Hemorrhage THROAT VARICIES Kidney failure Liver transplanted Past Surgical History: Procedure Laterality Date ARTERIOVENOUS FISTULA Left 2019 CARDIAC CATHETERIZATION times 2022 CHOLECYSTECTOMY ENDOSCOPY N/A 05/04/2020 Procedure: ESOPHAGOGASTRODUODENOSCOPY; Surgeon: Dewey Betancourt MD; Location: [facility]; Service: Gastroenterology; Laterality: N/A; LUMBAR LAMINECTOMY DISCECTOMY DECOMPRESSION N/A 04/29/2020 Procedure: LUMBAR LAMINECTOMY DISCECTOMY DECOMPRESSION POSTERIOR L4-5; Surgeon: Yinka Garnica MD; Location: [facility] OR; Service: Neurosurgery; Laterality: N/A; General Information Row Name 10/26/23 1511 Physical Therapy Time and Intention Document Type discharge evaluation/summary -ES Mode of Treatment physical therapy -ES Row Name 10/26/23 1511 General Information Patient Profile Reviewed yes -ES Prior Level of Function independent:;all household mobility;community mobility;transfer;bed mobility;ADL's;home management no AD at baseline. denies recent falls -ES Existing Precautions/Restrictions no known precautions/restrictions -ES Barriers to Rehab none identified -ES Row Name 10/26/23 151 Living Environment People in Home spouse;child(paddy), adult -ES Row Name 10/26/23 151 Home Main Entrance Number of Stairs, Main Entrance none;other (see comments) ramp -ES Row Name 10/26/23 151 Stairs Within Home, Primary Number of Stairs, Within Home, Primary none -ES Row Name 10/26/23 151 Cognition Orientation Status (Cognition) oriented x 4 -ES User Dyer (r) = Recorded By, (t) = Taken By, (c) = Cosigned By Initials Name Provider Type ES Selina Lucas, DEMETRIUS Physical Therapist Mobility Row Name 10/26/23 151 Bed Mobility Comment, (Bed Mobility) Received sitting EOB -ES Row Name 10/26/231510 Sit-Stand Transfer Sit-Stand [place] (Transfers) independent -ES Assistive Device (Sit-Stand Transfers) other (see comments) none -ES Row Name 10/26/23 151 Gait/Stairs (Locomotion) [place] Level (Gait) independent -ES Assistive Device (Gait) other (see comments) none -ES Distance in Feet (Gait) 400 -ES Deviations/Abnormal Patterns (Gait) bilateral deviations;gait speed decreased;stride length decreased;other (see comments) B foot drop from remote injuries -ES Gait Assessment/Intervention Pt ambulated independently. Demo'd good anand with narrow JACK and decreased stride length with B drop foot. No LOB. -ES User Dyer (r) = Recorded By, (t) = Taken By, (c) = Cosigned By Initials Name Provider Type ES Selina Lucas PT Physical Therapist Obj/Interventions Row Name 10/26/231513 Range of Motion Comprehensive General Range of Motion lower extremity range of motion deficits identified -ES Comment, General Range of Motion B drop foot from remote injury. All other BLE ROM WFL. -ES Row Name 10/26/231513 Strength Comprehensive (MMT) General Manual Muscle Testing (MMT) Assessment no strength deficits identified -ES Row Name 10/26/231513 Balance Balance Assessment sitting static balance;sitting dynamic balance;sit to stand dynamic balance;standing static balance;standing dynamic balance -ES Static Sitting Balance independent -ES Dynamic Sitting Balance independent -ES Position, Sitting Balance unsupported -ES Sit to Stand Dynamic Balance independent -ES Static Standing Balance independent -ES Dynamic Standing Balance independent -ES Position/Device Used, Standing Balance unsupported -ES Balance Interventions sitting;standing;sit to stand;static;dynamic;occupation based/functional task-ES Row Name 10/26/23 1514 Sensory Assessment (Somatosensory) Sensory Assessment (Somatosensory) bilateral LE -ES Bilateral LE Sensory Assessment impaired -ES User Dyer (r) = Recorded By, (t) = Taken By, (c) = Cosigned By Initials Name Provider Type Selina Valente PT Physical Therapist Goals/Plan No documentation. Clinical Impression Row Name 10/26/23 1515 Pain Pretreatment Pain Rating 0/10 - no pain -ES Posttreatment Pain Rating 0/10 - no pain -ES Pre/Posttreatment Pain Comment tolerated -ES Pain Intervention(s) Repositioned;Ambulation/increased activity -ES Row Name 10/26/23 151 Plan of Care Review Plan of Care Reviewed With patient -ES Progress no change PT IE -ES Outcome Evaluation PT eval complete. Pt presents at baseline for functional mobility including ambulation. IPPT services not warranted, PT signing off. PT rec home with assist at d/c. -ES Row Name 10/26/23 151 Therapy Assessment/Plan (PT) Criteria for Skilled Interventions Met (PT) no;no problems identified which require skilled intervention -ES Therapy Frequency (PT) evaluation only -ES Row Name 10/26/23 1515 Vital Signs Pre Systolic BP Rehab -- cleared by RN -ES O2 Delivery Pre Treatment room air -ES O2 Delivery Intra Treatment room air -ES O2 Delivery Post Treatment room air -ES Pre Patient Position Sitting -ES Intra Patient Position Standing -ES Post Patient Position Sitting -ES Row Name 10/26/23 1515 Positioning and Restraints Pre-Treatment Position in bed -ES Post Treatment Position bed -ES In Bed sitting EOB;notified nsg -ES User Dyer (r) = Recorded By, (t) = Taken By, (c) = Cosigned By Initials Name Provider Type Selina Valente, PT Physical Therapist Outcome Measures Row Name 10/26/23 1518 How much help from another person do you currently need... Turning from your back to your side while in flat bed without using bedrails? 4 -ES Moving from lying on back to sitting on the side of a flat bed without bedrails? 4 -ES Moving to and from a bed to a chair (including a wheelchair)? 4 -ES Standing up from a chair using your arms (e.g., wheelchair, bedside chair)? 4 -ES Climbing 3-5 steps with a railing? 4 -ES To walk in hospital room? 4 -ES AM-PAC 6 Clicks Score (PT) 24 -ES Highest Level of Mobility Goal 8 --> Walked 250 feet or more -ES Row Name 10/26/23 1518 10/26/23 151 Functional Assessment Outcome Measure Options AM-PAC 6 Clicks Basic Mobility (PT) -ES AM-PAC 6 Clicks Daily Activity (OT)-MATTEO User Dyer (r) = Recorded By, (t) = Taken By, (c) = Cosigned By Initials Name Provider Type ES Selina Lucas, PT Physical Therapist Eugenie Lopez, OT Occupational Therapist Physical Therapy Education Title: PT OT LEAD CASTER Therapies (In Progress) Topic: Physical Therapy (In Progress) Point: Mobility training (Done) Learning Progress Summary Patient Acceptance, E,TB, VU by at 10/26/20231518 Point: Home exercise program (Not Started) Learner Progress: Not documented in this visit. Point: Body mechanics (Done) Learning Progress Summary Patient Acceptance, E,TB, VU by ES at 10/26/20231518 Point: Precautions (Done) Learning Progress Summary Patient Acceptance, E,TB, VU by ES at 10/26/20231518 User Dyer Initials Effective Dates Name Provider Type Discipline 03/24/22 - Selina Lucas, PT Physical Therapist PT PT Recommendation and Plan Plan of Care Reviewed With: patient Progress: no change (PT IE) Outcome Evaluation: PT eval complete. Pt presents at baseline for functional mobility including ambulation. IPPT services not warranted, PT signing off. PT rec home with assist at d/c. Time Calculation: PT Evaluation Complexity History, PT Evaluation Complexity: 1-2 personal factors and/or comorbidities Examination of Body Systems (PT Eval Complexity): total of 3 or more elements Clinical Presentation (PT Evaluation Complexity): evolving Clinical Decision Making (PT Evaluation Complexity): low complexity Overall Complexity (PT Evaluation Complexity): low complexity PT Charges Row Name 10/26/23 151 Time Calculation Start Time 1453 -ES PT Received On 10/26/23 -ES Untimed Charges PT Eval/Re-eval Minutes 31 -ES Total Minutes Untimed Charges Total Minutes 31 -ES Total Minutes 31 -ES User Dyer (r) = Recorded By, (t) = Taken By, (c) = Cosigned By Initials Name Provider Type Selina Valente PT Physical Therapist Therapy Charges for Today Code Description Service Date Service Provider Modifiers Qty [id number] HC PT EVAL LOW COMPLEXITY 3 10/26/2023 Selina Lucas PT GP 1 PT G-Codes Outcome Measure Options: AM-PAC 6 Clicks Basic Mobility (PT) AM-PAC 6 Clicks Score (PT): 24 AM-PAC 6 Clicks Score (OT): 24 PT Discharge Summary Anticipated Discharge Disposition (PT): home with assist Reason for Discharge: At baseline function Selina Lucas PT 10/26/2023 documented in this encounter Medications at Time of Discharge ALPRAZolam (XANAX) 0.5 MG tablet Take 1 tablet by mouth Daily As Needed for Anxiety. 3 aspirin 81 MG chewable tablet Chew 1 tablet Daily. B-D 3CC LUER-LISSETTE SYR 25GX1/2 25G X 1-1/2 3 ML misc 4 carBAMazepine (TEGretol) 200 MG tablet Take 1 tablet by mouth Every Night. For feet cramps carvedilol (COREG) 25 MG tablet Take 2 tablets (50 mg total) by mouth 2 times a day with meals. cholecalciferol (VITAMIN D3) 1.25 MG (29064 UT) capsule Take 1 capsule by mouth 3 (Three) Times a Week. 3 cinacalcet (SENSIPAR) 90 MG tablet TAKE 1 TABLET BY MOUTH DAILY WITH EVENING MEAL 4 Continuous Blood Gluc Sensor (FreeStyle Leonel 2 Sensor) [facility] [place] USE DIRECTED CHANGE EVERY 14 DAYS DIRECTED 4 cycloSPORINE modified (NEORAL) 25 MG capsule Take 4 capsules by mouth 2 (Two) Times a Day. 3 Depo-Testosterone 200 MG/ML injection inject 1 Milliliter intramuscularly once monthly doxazosin (CARDURA) 8 MG tablet Take 1 tablet by mouth At Night As Needed. entecavir (BARACLUDE) 0.5 MG tablet Take 1 tablet by mouth Every 7 (Seven) Days. fenofibrate micronized (LOFIBRA) 134 MG capsule Take 1 capsule by mouth Daily. folic acid (FOLVITE) 1 MG tablet Take 1 tablet by mouth Daily. 3 gabapentin (NEURONTIN) 800 MG tablet Take 0.5 tablets by mouth Every Night. hydrALAZINE (APRESOLINE) 100 MG tablet Take 1 tablet by mouth 3 (Three) Times a Day. 90 tablet 4 insulin glargine (LANTUS, SEMGLEE) 100 UNIT/ML injection Inject 30 Units under the skin into the appropriate area as directed Every Night. insulin regular (humuLIN R,novoLIN R) 100 UNIT/ML injection Inject 5 Units under the skin into the appropriate area as directed 3 (Three) Times a Day Before Meals. methocarbamol (ROBAXIN) 500 MG tablet Take 1 tablet by mouth 1 (One) Time. montelukast (SINGULAIR) 10 MG tablet Take 1 tablet by mouth Daily. 3 mycophenolate (CELLCEPT) 250 MG capsule Take 1 capsule by mouth 2 (Two) Times a Day. NIFEdipine CC (ADALAT CC) 90 MG 24 hr tablet Take 1 tablet by mouth 2 (Two) Times a Day. ondansetron ODT (ZOFRAN-ODT) 8 MG disintegrating tablet Take 1 tablet by mouth 3 (Three) Times a Day As Needed. pantoprazole (PROTONIX) 40 MG EC tablet Take 1 tablet by mouth 2 (Two) Times a Day. Xphozah 20 MG tablet Take 30 mg by mouth 2 (Two) Times a Day. 3 documented as of this encounter Progress Notes * Scar Richardson MD - 11/02/2023 2:22 PM EDT Images from the original note were not included. . INFECTIOUS DISEASE PROGRESS NOTE Aiden Stauffer . 1975 [id number] Date of Consult: 10/27/2023 Admission Date: 10/25/2023 Requesting Provider: Michelle Shore DO Evaluating Physician: Scar Richardson MD Reason for Consultation: Infected AVF, immunocompromised patient. History of present illness: Patient is a 48 y.o. male with h/o T2DM, ESRD/HD/temporary dialysis cath 08/11/23/LUE AVF malfunctioning since 08/10/23, morbid obesity, KIM liver cirrhosis s/p liver transplant 2017 on chronic immunosuppression with Cyclosporine and CellCept/Hep B liver/on Entecavir, on and discitis/epidural abscess/laminectomy/I and D 2019 (treated by Dr. Cayetano Rodriguez) who was admitted to [facility] on 10/24 for pain at LUE AVF site that has been ongoing for 4 months. 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 He was treated with Zosyn and Vancomycin.He was discharged home on oral cefuroxime and oral doxycycline for 4 days. He returned to [facility] ED on 10/24 for worsening pain, swelling, and redness at LUE AVF site. He was scheduled for a revision by Dr. Gruber. He was afebrile with intermittent hypertension. He remains on room air. Initial labs were WBC 5300 with 67% segs, PCT 0.44, lactic acid 0.7, creatinine 9.74, and K 5.8. A respiratory panel PCR was negative. A MRSA PCR was negative. Blood cultures are negative todate. A CXR on 10/25/23 showed RLL pneumonia although not extremely impressive. He is currently on Zosyn and Vancomycin. ID was asked to evaluate and manage his antibiotic therapy. 10/28/23: Blood cultures positive for GPC in pairs/chains with BCID PCR negative. MRSA screen negative. Tmax 99.8. Patient denies any worsening cough. He denies f/c, v/d, rashes. He has chronic nausea. He states the dialysis catheter has had some bumps around the insertion site. 10/29/23: Afebrile. Blood culture with GPC ID/S pending. Repeat blood cultures pending. He continuesto have chronic nausea. He denies f/c, soa, v/d, rashes. He is worried about the dialysis catheter and feels it should be removed. 10/30/23: Tmax 100.2, now afebrile. Blood culture with GPC with and ID that was an odd species, [facility] is rerunning the culture and if it remains an odd result, then it will be sent to a referencelab. The patient is awaiting dialysis cath removal and placement of new line. He denies any worsening left arm pain. He denies soa, n/v/d, rashes. 10/31/23; doing well; no events overnight; no fever, rash, sore throat 11/01/23; doing well; no events overnight; no fever, rash, sore throat Past Medical History: Diagnosis Date Diabetes mellitus Dialysis patient Hemorrhage THROAT VARICIES Kidney failure Liver transplanted Past Surgical History: Procedure Laterality Date ARTERIOVENOUS FISTULA Left 2019 ARTERIOVENOUS FISTULA/SHUNT SURGERY Left 10/27/2023 Procedure: ARTERIOVENOUS FISTULA LIGATION LEFT; Surgeon: Dontae Gruber MD; Location: [facility] OR; Service: Vascular; Laterality: Left; CARDIAC CATHETERIZATION times 2022 CHOLECYSTECTOMY ENDOSCOPY N/A 05/04/2020 Procedure: ESOPHAGOGASTRODUODENOSCOPY; Surgeon: Dewey Betancourt MD; Location: [facility] ENDOSCOPY; Service: Gastroenterology; Laterality: N/A; LUMBAR LAMINECTOMY DISCECTOMY DECOMPRESSION N/A 04/29/2020 Procedure: LUMBAR LAMINECTOMY DISCECTOMY DECOMPRESSION POSTERIOR L4-5; Surgeon: Yinka Garnica MD; Location: [facility] OR; Service: Neurosurgery; Laterality: N/A; History reviewed. No pertinent family history. Social History Socioeconomic History Marital status: Tobacco Use Smoking status: Never Passive exposure: Never Smokeless tobacco: Never Vaping Use Vaping status: Never Used Substance and Sexual Activity Alcohol use: Never Drug use: Never Sexual activity: Defer Allergies Allergen Reactions Tacrolimus Other (See Comments) and Unknown - High Severity Anxious feeling and muscle jerking. TOLERATED ENVARSUS BETTER THAN PROGRAF. Codeine Anxiety and Unknown - Low Severity Calcitriol GI Intolerance Medication: Current Facility-Administered Medications: *Patient Supplied* entecavir (BARACLUDE) tablet 0.5 mg, 0.5 mg, Oral, Weekly, Dontae Gruber MD acetaminophen (TYLENOL) tablet 650 mg, 650 mg, Oral, Q4H PRN, Dontae Gruber MD, 650 mg at10/27/23 1329 albumin human 25 % IV SOLN - ADS Override Pull, , , , albuterol (PROVENTIL) nebulizer solution 0.083% 2.5 mg/3mL, 2.5 mg, Nebulization, Q6H PRN, Chiquita Porter, CRISTI ALPRAZolam (XANAX) tablet 0.5 mg, 0.5 mg, Oral, Daily PRN, Dontae Gruber MD, 0.5 mg at 11/02/23 0142 aspirin chewable tablet 81 mg, 81 mg, Oral, Daily, Dontae Gruber MD, 81 mg at 11/02/23 0946 sennosides-docusate (PERICOLACE) 8.6-50 MG per tablet 2 tablet, 2 tablet, Oral, BID PRN AND polyethylene glycol (MIRALAX) packet 17 g, 17 g, Oral, Daily PRN AND bisacodyl (DULCOLAX) EC tablet5 mg, 5 mg, Oral, Daily PRN AND bisacodyl (DULCOLAX) suppository 10 mg, 10 mg, Rectal, Daily PRN, Dontae Gruber MD calcitriol (ROCALTROL) capsule 0.25 mcg, 0.25 mcg, Oral, Daily, Dontae Gruber MD, 0.25 mcg at 11/02/23 0946 carBAMazepine (TEGretol) tablet 200 mg, 200 mg, Oral, Nightly, Dontae Gruber MD, 200 mg at 11/01/23 2221 carvedilol (COREG) tablet 25 mg, 25 mg, Oral, BID With Meals, Dontae Gruber MD, 25 mg at 11/02/23 0945 cefTRIAXone (ROCEPHIN) 2,000 mg in sodium chloride 0.9 % 100 mL MBP, 2,000 mg, Intravenous, Q24H, Giancarlo Valderrama PA, Last Rate: 200 mL/hr at 11/01/23 1844, 2,000 mg at 11/01/23 1844 cinacalcet (SENSIPAR) tablet 90 mg, 90 mg, Oral, Nightly, Dontae Gruber MD, 90 mg at 11/01/23 2221 cycloSPORINE modified (NEORAL) capsule 100 mg, 100 mg, Oral, BID, Dontae Gruber MD, 100 mg at 11/02/23 0945 dextrose (D50W) (25 g/50 mL) IV injection 25 g, 25 g, Intravenous, Q15 Min PRN, Dontae Gruber MD dextrose (GLUTOSE) oral gel 15 g, 15 g, Oral, Q15 Min PRN, Dontae Gruber MD diphenhydrAMINE (BENADRYL) capsule 25 mg, 25 mg, Oral, Q6H PRN, Michelle Shore DO, 25 mg at 10/30/23 2211 fenofibrate (TRICOR) tablet 145 mg, 145 mg, Oral, Daily, Dontae Gruber MD, 145 mg at 11/02/23 0945 folic acid (FOLVITE) tablet 1,000 mcg, 1,000 mcg, Oral, Daily, Dontae Gruber MD, 1,000 mcg at 11/02/23 0945 gabapentin (NEURONTIN) capsule 300 mg, 300 mg, Oral, Nightly, Dontae Gruber MD, 300 mg at11/01/23 2222 glucagon (GLUCAGEN) injection 1 mg, 1 mg, Intramuscular, Q15 Min PRN, Dontae Gruber MD guaiFENesin (MUCINEX) 12 hr tablet 1,200 mg, 1,200 mg, Oral, Q12H, Michelle Shore DO, 1,200 mg at 11/02/23 0946 heparin (porcine) injection 2,000 Units, 2,000 Units, Intracatheter, PRN, Dontae Gruber MD, 2,000 Units at 11/01/23 1710 hydrALAZINE (APRESOLINE) tablet 100 mg, 100 mg, Oral, TID, Dontae Gruber MD, 100 mg at 11/02/23 0605 Insulin Lispro (humaLOG) injection 2-7 Units, 2-7 Units, Subcutaneous, 4x Daily AC & at Bedtime, Dontae Gruber MD, 3 Units at 11/01/23 2223 ipratropium-albuterol (DUO-NEB) nebulizer solution 3 mL, 3 mL, Nebulization, 4x Daily - RT, Chiquita Porter, LOG PREPARER, 3 mL at 11/02/23 0740 melatonin tablet 5 mg, 5 mg, Oral, Nightly PRN, Dontae Gruber MD mycophenolate (CELLCEPT) capsule 250 mg, 250 mg, Oral, Q12H, Dontae Gruber MD, 250 mg at 11/02/23 0946 naloxone (NARCAN) injection 0.4 mg, 0.4 mg, Intravenous, PRN, Dontae Gruber MD NIFEdipine XL (PROCARDIA XL) 24 hr tablet 90 mg, 90 mg, Oral, BID, Dontae Gruber MD, 90 mg at 11/02/23 0945 ondansetron (ZOFRAN) injection 4 mg, 4 mg, Intravenous, Q6H PRN, Dontae Gruber MD, 4 mg at 11/01/23 1300 oxyCODONE-acetaminophen (PERCOCET) 5-325 MG per tablet 1 tablet, 1 tablet, Oral, Q4H PRN, Michelle Shore DO, 1 tablet at 11/01/23 2223 pantoprazole (PROTONIX) EC tablet 40 mg, 40 mg, Oral, Q AM, Dontae Gruber MD, 40 mg at 11/02/23 0605 prochlorperazine (COMPAZINE) injection 5 mg, 5 mg, Intravenous, Q6H PRN, 5 mg at 11/01/23 2233 OR prochlorperazine (COMPAZINE) tablet 5 mg, 5 mg, Oral, Q6H PRN, Kevin Muller MD promethazine (PHENERGAN) tablet 12.5 mg, 12.5 mg, Oral, Q6H PRN, 12.5 mg at 11/02/23 0142 OR promethazine (PHENERGAN) suppository 12.5 mg, 12.5 mg, Rectal, Q6H PRN, Dontae Gruber MD simethicone (MYLICON) chewable tablet 80 mg, 80 mg, Oral, 4x Daily PRN, Kevin Muller MD, 80 mg at 10/31/23 1913 [COMPLETED] Insert Peripheral IV, , , Once AND sodium chloride 0.9 % flush 10 mL, 10 mL, Intravenous, PRN, Dontae Gruber MD sodium chloride 0.9 % flush 10 mL, 10 mL, Intravenous, Q12H, Dontae Gruber MD, 10 mL at 11/02/23 0946 sodium chloride 0.9 % flush 10 mL, 10 mL, Intravenous, PRN, Dontae Gruber MD sodium chloride 0.9 % infusion 40 mL, 40 mL, Intravenous, PRN, Dontae Gruber MD sodium zirconium cyclosilicate (LOKELMA) packet 10 g, 10 g, Oral, BID, Serey, Chiquita, LOG PREPARER Antibiotics: Anti-Infectives (From admission, onward) Ordered Dose/Rate Route Frequency Start Stop 10/26/23 1215 *Patient Supplied* entecavir (BARACLUDE) tablet 0.5 mg Ordering Provider: Dontae Gruber MD 0.5 mg Oral Weekly 11/02/23 0900 10/30/23 1603 cefTRIAXone (ROCEPHIN) 2,000 mg in sodium chloride 0.9 % 100 mL MBP Ordering Provider: Giancarlo Valderrama PA 2,000 mg 200 mL/hr over 30 Minutes Intravenous Every 24 Hours 10/30/23 1700 11/13/23 1659 10/27/23 1531 vancomycin IVPB 2000 mg in 0.9% Sodium Chloride 500 mL Ordering Provider: Dontae Gruber MD 15 mg/kg ?? 136 kg 250 mL/hr over 120 Minutes Intravenous Once 10/27/23 2100 10/27/23 2300 10/26/23 0356 piperacillin-tazobactam (ZOSYN) 4.5 g IVPB in 100 mL NS MBP (CD) Ordering Provider: Beulah Fleming DO 4.5 g over 30 Minutes Intravenous Once 10/26/23 0410 10/26/23 0641 10/26/23 0305 vancomycin 2750 mg/500 mL 0.9% NS IVPB ([facility]) Ordering Provider: Terry Burgess MD 20 mg/kg ?? 136 kg over 165 Minutes Intravenous Once 10/26/23 0321 10/26/23 0941 Review of Systems: See above. Physical Exam: Vital Signs Temp (24hrs), Av.5 ??F (36.9 ??C), Min:97 ??F (36.1 ??C), Max:99.9 ??F (37.7 ??C) Temp Min: 97 ??F (36.1 ??C) Max: 99.9 ??F (37.7 ??C) BP Min: 105/61 Max: 176/81 Pulse Min: 73 Max: 94 Resp Min: 14 Max: 18 SpO2 Min: 86 % Max: 99 % GENERAL: Awake and alert, in no acute distress. HEENT:EOMI. No conjunctival injection. No icterus. No ext oral lesions HEART: RRR; No murmur. LUNGS: Clear to auscultation bilaterally ABDOMEN: Soft, nontender, EXT: No edema. : Without Anders catheter. SKIN: Warm and dry without cutaneous eruptions on Inspection/palpation. NEURO: Oriented to PPT. Motor 5/5 strength PSYCHIATRIC: Normal insight and judgment. Cooperative with PE Laboratory Data Results from last 7 days Lab Units 11/02/23 0751 11/01/23 0504 10/31/23 0504 WBC 10*3/mm3 6.79 7.66 4.16 HEMOGLOBIN g/dL 9.4* 10.0* 10.5* HEMATOCRIT % 31.3* 32.5* 34.5* PLATELETS 10*3/mm3 227 230 203 Results from last 7 days Lab Units 11/02/23 0732 SODIUM mmol/L 133* POTASSIUM mmol/L 5.7* CHLORIDE mmol/L 97* CO2 mmol/L 21.0* BUN mg/dL 37* CREATININE mg/dL 8.12* GLUCOSE mg/dL 120* CALCIUM mg/dL 8.0* Results from last 7 days Lab Units 11/01/23 0504 ALK PHOS U/L 105 BILIRUBIN mg/dL 0.2 ALT (SGPT) U/L 11 AST (SGOT) U/L 13 Results from last 7 days Lab Units 10/30/23 0418 10/27/23 0500 VANCOMYCIN RM mcg/mL 22.60 7.70 Estimated Creatinine Clearance: 14.2 mL/min (A) (by C-G formula based on SCr of 8.12 mg/dL (H)). Microbiology: Microbiology Results (last 10 days) Procedure Component Value - Date/Time Catheter Culture - Cath Tip, Chest, Right [[id number]] Collected: 10/30/23 1607 Lab Status: Final result Specimen: Cath Tip from Chest, Right Updated: 11/01/23 0712 CATHETER CULTURE No growth at 2 days Blood Culture - Blood, Hand, Right [[id number]] (Normal) Collected: 10/28/23 1342 Lab Status: Preliminary result Specimen: Blood from Hand, Right Updated: 11/01/23 1500 Blood Culture No growth at 4 days Blood Culture - Blood, Arm, Right [[id number]] (Normal) Collected: 10/28/23 1342 Lab Status: Preliminary result Specimen: Blood from Arm, Right Updated: 11/01/23 1500 Blood Culture No growth at 4 days Blood Culture - Blood, Hand, Right [[id number]] (Abnormal) Collected: 10/26/23 0536 Lab Status: Preliminary result Specimen: Blood from Hand, Right Updated: 10/31/23 0613 Blood Culture Gram Positive Cocci Comment: Sending other set to [facility] for ID and MICs Isolated from -- Gram Stain Aerobic Bottle Gram positive cocci in pairs and chains Narrative: Refer to previous blood culture collected on 10/26/2023 0500 for MICs Less than seven (7) mL's of blood was collected. Insufficient quantity may yield false negative results. 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 Swab in UTM/VTM, 2 HR TAT - Swab, Nasopharynx [[id number]] (Normal) Collected: 10/26/23 0515 Lab Status: Final result Specimen: Swab from Nasopharynx Updated: 10/26/23 0620 ADENOVIRUS, PCR Not Detected Coronavirus 229E Not Detected Coronavirus HKU1 Not Detected Coronavirus NL63 Not Detected Coronavirus OC43 Not Detected COVID19 Not Detected Human Metapneumovirus Not Detected Human Rhinovirus/Enterovirus Not Detected Influenza A PCR Not Detected Influenza B PCR Not Detected Parainfluenza Virus 1 Not Detected Parainfluenza Virus 2 Not Detected Parainfluenza Virus 3 Not Detected Parainfluenza Virus 4 Not Detected RSV, PCR Not Detected Bordetella pertussis pcr Not Detected Bordetella parapertussis PCR Not Detected Chlamydophila pneumoniae PCR Not Detected Mycoplasma pneumo by PCR Not Detected Narrative: In the setting of a positive respiratory panel with a viral infection PLUS a negative procalcitoninwithout other underlying concern for bacterial infection, consider observing off antibiotics or discontinuation of antibiotics and continue supportive care. If the respiratory panel is positive for atypical bacterial infection (Bordetella pertussis, Chlamydophila pneumoniae, or Mycoplasma pneumoniae), consider antibiotic de-escalation to target atypical bacterial infection. MRSA Screen, PCR (Inpatient) - Swab, Nares [[id number]] (Normal) Collected: 10/26/23 0515 Lab Status: Final result Specimen: Swab from Nares Updated: 10/26/23 0958 MRSA PCR Negative Narrative: The negative predictive value of this diagnostic test is high and should only be used to consider de-escalating anti-MRSA therapy. A positive result may indicate colonization with MRSA and must be correlated clinically. MRSA Negative Blood Culture - Blood, Arm, Right [[id number]] (Abnormal) Collected: 10/26/23 0500 Lab Status: Preliminary result Specimen: Blood from Arm, Right Updated: 10/31/23 0614 Blood Culture Gram Positive Cocci Comment: Sending to [facility] for ID and MICs Isolated from -- Gram Stain Anaerobic Bottle Gram positive cocci in pairs and chains Aerobic Bottle Gram positive bacilli Narrative: Less than seven (7) mL's of blood was collected. Insufficient quantity may yield false negative results. Blood culture does not meet the specified criteria for PCR identification. If , immunocompromised, or clinical concern for meningitis, call lab to run BCID for Listeria monocytogenes. Blood Culture ID, PCR - Blood, Arm, Right [[id number]] Collected: 10/26/23 0500 Lab Status: Final result Specimen: Blood from Arm, Right Updated: 10/27/23 1658 BCID, PCR Negative by BCID PCR. Culture to Follow. BOTTLE TYPE Anaerobic Bottle Radiology: Imaging Results (Last 72 Hours) Procedure Component Value Units Date/Time IR NON-HUEY TEMP DIALYSIS ACC [[id number]] Collected: 11/01/23 1356 Updated: 11/01/23 1400 Narrative: IR NON-TUNNELED TEMP DIALYSIS ACCESS History: Need for temporary dialysis catheter placement. 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 Health Promoter: Victor Manuel Castro MD. Lead Sewage Plant Operator: None Modality: Sonography and fluoroscopy DOSE REDUCTION: The examination was performed according to departmental dose- optimization program which includes automated exposure control, adjustment of the mA and/or kV according to patient size. Fluoro time: 2.3. Radiation dose: 28 mGy air Kerma. Sedation: No IV sedation was given. Anesthesia: Lidocaine 1% local infiltration. Estimated blood loss: < 5 cc. Technique: A thorough discussion of the risks, benefits, and alternatives of the procedure, and if applicable,moderate sedation, was carried out with the patient. They were encouraged to ask any questions. Anyquestions were answered. They verbalized understanding. A written informed consent was then signed. A multi-component timeout was performed prior to starting the procedure using the departmental protocol. The procedure room personnel used personal protective equipment. The operators used sterile gloves and if indicated, sterile gowns. The surgical site was prepped with chlorhexidine gluconate and draped in the maximal applicable sterile fashion. A preliminary ultrasonogram was performed of the target site that revealed a patent and compressible Right internal jugular vein. Pertinent ultrasound images were stored in the PACS for documentation. A sterile prep and drape of the neck and upper chest was performed using maximal technique. Using aseptic precautions, real-time ultrasound guidance, the target vein was accessed after local anesthetic infiltration and dermatotomy with an access needle. A guidewire was advanced into the central venous system under fluoroscopic guidance. Over the wire following standard exchanges a nontunneled temporary dialysis catheter was placed. The catheter ports aspirated and flushed well and were terminally packed with heparin. The catheter was secured to skin with nonabsorbable suture. An aseptic dressing was applied. The patient was transferred to the recovery area and was discharged from the department in stable condition. Complications: None immediate. Device: 14 Taiwanese x15 cm Dual-lumen nontunneled dialysis catheter . Findings: Patent and compressible Right internal jugular vein. Final image shows the catheter to bein good position with the catheter tip at the cavoatrial junction and an excellent position for use. There is no complication. Impression: Impression: Successful ultrasound and fluoroscopic guided Right internal jugular vein route nontunneled temporary dialysis catheter placement as described above. Thank you for the opportunity to assist in the care of your patient. Electronically Signed: Victor Manuel Castro MD 11/01/2023 1:57 PM EDT Workstation ID: [id number] IR Removal Tunnel CV Cath Without Port [[id number]] Collected: 10/30/23 1635 Updated: 10/31/23 1247 Narrative: IR REMOVAL TUNNEL CV CATH WO PORT History: bacteremia, immunocompromised Health Promoter: Victor Manuel Castro MD. Modality: Not applicable. No sedation. Anesthesia: Lidocaine 1% Estimated blood loss: < 5 cc. Technique: A universal timeout was performed prior to starting the procedure. The baling press operator used personal protective equipment and sterile gloves. The ipsilateral lower neck and chest were prepped with chlorhexidine gluconate and draped in the maximal sterile fashion. Local anesthesia was infiltrated along the tunnel and exit site. Using sharp and blunt dissection the catheter cuff was freed and the catheter removed in its entirety. An aseptic dressing was applied. The patient was in stable condition. Complications: None immediate. Impression: Impression: Successful removal of a right IJ route tunneled dialysis catheter as described above. Thank you for the opportunity to assist in the care of your patient. I, Aubrey Velasco MD, have personally reviewed the image(s) and the prepared and signed interpretation by Brandy Feliz NP. Based on my review, I agree with the findings. Report dictated by: Brandy Feliz APRN I have personally reviewed this case and agree with the findings above: Electronically Signed: Aubrey Velasco MD 10/31/2023 12:44 PM EDT Workstation ID: [id number] Impression: - Left upper extremity atriovenous graft infection. Awaiting revision on 10/26. Blood cultures negative to date. 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 - Morbid obesity - End Stage renal disease/HD by dialysis catheter/left UE AVF malfunctioning and infected. - Type 2 diabetes mellitus - gram positive bacteremia--likely streptococcus/enterococcus. Concerning for dialysis line infection vs AVF as source. PLAN/RECOMMENDATIONS: Thank you for asking us to see Aiden Stauffer Jr., I recommend the following: - Follow blood cultures--GPC, ID/S pending. Colonies still too tiny to evaluate on plate per micro.They are rerunning the microscan. - contRocephin 2 GM IV daily - Continue LUE wound care per Dr. Gruber - patietn can have new permanent dialysis catheter placement if repeat bl cx are ng x 5 days Scar Richardson MD 11/02/2023 14:22 EDT * Karishma Hodge MD - 11/02/2023 9:38 AM EDT LOS: 6 days Patient Care Team: Edgar Fournier MD as PCP - General (Family Medicine) Claudia Calles MD as Consulting Physician (Cardiology) Chief Complaint: Infected AV fistula. 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 Patient admitted due to pain and infection. Subjective Seen and examined at bedside. No overnight issues. Interval History: AV fistula ligation done 10/27/[address] Gruber Blood cultures positive. Patient getting antibiotic. Objective Vital Sign Min/Max for last 24 hours Temp Min: 97 ??F (36.1 ??C) Max: 97.3 ??F (36.3 ??C) BP Min: 106/65 Max: 176/81 Pulse Min: 73 Max: 94 Resp Min: 12 Max: 20 SpO2 Min: 86 % Max: 99 % Flow (L/min) Min: 3 Max: 4 No data recorded Flowsheet Rows Flowsheet Row First Filed Value Admission Height 175.3 cm (69 ) Documented at 10/25/2023 2228 Admission Weight 136 kg (300 lb) Documented at 10/25/2023 2228 No intake/output data recorded. I/O last 3 completed shifts: In: 100 [IV Piggyback:100] Out: 1000 Physical Exam: General Appearance: Morbid obesity male Eyes: PER, EOMI. Neck: Supple no JVD. Lungs: Clear auscultation, no rales rhonchi's, equal chest movement, nonlabored. Heart: No gallop, murmur, rub, RRR. Abdomen: Soft, nontender, positive bowel sounds, obesity. Extremities: 1+ bilateral lower extremity edema no cyanosis. Neuro: No focal deficit, moving all extremities, alert oriented X 3 Left forearm AV fistula with areas of inflammation. No bruit WBC WBC Date Value Ref Range Status 11/02/2023 6.79 3.40 - 10.80 10*3/mm3 Final 11/01/2023 7.66 3.40 - 10.80 10*3/mm3 Final 10/31/2023 4.16 3.40 - 10.80 10*3/mm3 Final HGB Hemoglobin Date Value Ref Range Status 11/02/2023 9.4 (L) 13.0 - 17.7 g/dL Final 11/01/2023 10.0 (L) 13.0 - 17.7 g/dL Final 10/31/2023 10.5 (L) 13.0 - 17.7 g/dL Final HCT Hematocrit Date Value Ref Range Status 11/02/2023 31.3 (L) 37.5 - 51.0 % Final 11/01/2023 32.5 (L) 37.5 - 51.0 % Final 10/31/2023 34.5 (L) 37.5 - 51.0 % Final Platlets No results found for: LABPLAT MCV MCV Date Value Ref Range Status 11/02/2023 104.7 (H) 79.0 - 97.0 fL Final 11/01/2023 103.8 (H) 79.0 - 97.0 fL Final 10/31/2023 101.8 (H) 79.0 - 97.0 fL Final Sodium Sodium Date Value Ref Range Status 11/02/2023 133 (L) 136 - 145 mmol/L Final 11/01/2023 132 (L) 136 - 145 mmol/L Final 10/31/2023 131 (L) 136 - 145 mmol/L Final Potassium Potassium Date Value Ref Range Status 11/02/2023 5.7 (H) 3.5 - 5.2 mmol/L Final 11/01/2023 5.3 (H) 3.5 - 5.2 mmol/L Final Comment: Slight hemolysis detected by analyzer. Result may be falsely elevated. 10/31/2023 4.5 3.5 - 5.2 mmol/L Final Comment: Slight hemolysis detected by analyzer. Result may be falsely elevated. Chloride Chloride Date Value Ref Range Status 11/02/2023 97 (L) 98 - 107 mmol/L Final 11/01/2023 94 (L) 98 - 107 mmol/L Final 10/31/2023 94 (L) 98 - 107 mmol/L Final CO2 CO2 Date Value Ref Range Status 11/02/2023 21.0 (L) 22.0 - 29.0 mmol/L Final 11/01/2023 17.0 (L) 22.0 - 29.0 mmol/L Final 10/31/2023 20.0 (L) 22.0 - 29.0 mmol/L Final BUN BUN Date Value Ref Range Status 11/02/2023 37 (H) 6 - 20 mg/dL Final 11/01/2023 52 (H) 6 - 20 mg/dL Final 10/31/2023 39 (H) 6 - 20 mg/dL Final Creatinine Creatinine Date Value Ref Range Status 11/02/2023 8.12 (H) 0.76 - 1.27 mg/dL Final 11/01/2023 10.08 (H) 0.76 - 1.27 mg/dL Final 10/31/2023 7.99 (H) 0.76 - 1.27 mg/dL Final Calcium Calcium Date Value Ref Range Status 11/02/2023 8.0 (L) 8.6 - 10.5 mg/dL Final 11/01/2023 7.7 (L) 8.6 - 10.5 mg/dL Final 10/31/2023 8.7 8.6 - 10.5 mg/dL Final PO4 No results found for: CAPO4 Albumin Albumin Date Value Ref Range Status 11/01/2023 3.8 3.5 - 5.2 g/dL Final Magnesium No results found for: MG Uric Acid No results found for: URICACID Results Review: I reviewed the patient's new clinical results. entecavir, 0.5 mg, Oral, Weekly albumin human, , , aspirin, 81 mg, Oral, Daily calcitriol, 0.25 mcg, Oral, Daily carBAMazepine, 200 mg, Oral, Nightly carvedilol, 25 mg, Oral, BID With Meals cefTRIAXone, 2,000 mg, Intravenous, Q24H cinacalcet, 90 mg, Oral, Nightly cycloSPORINE modified, 100 mg, Oral, BID fenofibrate, 145 mg, Oral, Daily folic acid, 1,000 mcg, Oral, Daily gabapentin, 300 mg, Oral, Nightly guaiFENesin, 1,200 mg, Oral, Q12H hydrALAZINE, 100 mg, Oral, TID insulin lispro, 2-7 Units, Subcutaneous, 4x Daily AC & at Bedtime ipratropium-albuterol, 3 mL, Nebulization, 4x Daily - RT mycophenolate, 250 mg, Oral, Q12H NIFEdipine XL, 90 mg, Oral, BID pantoprazole, 40 mg, Oral, Q AM sodium chloride, 10 mL, Intravenous, Q12H sodium zirconium cyclosilicate, 10 g, Oral, Once Medication Review: Reviewed Results from last 7 days Lab Units 11/02/23 0751 11/02/23 0732 11/01/23 0504 10/31/23 0504 10/30/23 0418 10/28/23 0439 10/27/23 0500 SODIUM mmol/L -- 133* 132* 131* 132* < > 134* POTASSIUM mmol/L -- 5.7* 5.3* 4.5 5.7* < > 5.0 CHLORIDE mmol/L -- 97* 94* 94* 92* < > 95* CO2 mmol/L -- 21.0* 17.0* 20.0* 19.0* < > 27.0 BUN mg/dL -- 37* 52* 39* 55* < > 41* CREATININE mg/dL -- 8.12* 10.08* 7.99* 10.39* < > 6.81* CALCIUM mg/dL -- 8.0* 7.7* 8.7 8.1* < > 9.0 ALBUMIN g/dL -- -- 3.8 -- -- -- 4.1 WBC 10*3/mm3 6.79 -- 7.66 4.16 5.35 < > 4.56 HEMOGLOBIN g/dL 9.4* -- 10.0* 10.5* 9.6* < > 11.3* PLATELETS 10*3/mm3 227 -- 230 203 198 < > 233 < > = values in this interval not displayed. Assessment & Plan Arm pain KIM (nonalcoholic steatohepatitis) History of liver transplant Immunosuppression Type 2 diabetes mellitus ESRD (end stage renal disease) Hyperkalemia Pneumonia 1. ESRD: On home hemodialysis initially via the AV fistula, now dialyzing with a tunneled catheter follow-up with Dr. Sky at [facility]. Dialyzes 4 times a week. 2. Infected AV fistula: AV fistula ligated 10/27/2023. Antibiotics per ID. 3. Metabolic acidosis: Due to renal failure. 4. Volume overload: corrected with dialysis. 5. KIM: History of liver transplant. On cyclosporine. 6. Type 2 diabetes. 7. Secondary hyperparathyroidism: On Cinacalcet 8. Hyperphosphatemia: On phosphate binders. 9. Vitamin D deficiency: On oral vitamin D. 10. Hyperlipidemia: On statin Recommendations: - HD today, UF as tolerated. - Continue Monday dialysis schedule. - Renal diet with fluid restriction less than 1500 mL/day - Low K diet ordered High risk complex patient with multiple medical problems. Karishma Hodge MD 11/02/23 09:38 EDT * Chiquita Porter APRN - 11/02/2023 7:22 AM EDT Images from the original note were not included. [facility] Medicine Services PROGRESS NOTE Patient Name: Aiden Stauffer Jr. : 1975 Date of Admission: 10/25/2023 Primary Care Physician: Edgar Fournier MD Subjective Subjective CC: AVF infection HPI: Patient has central line access for dialysis placed 10/31 and waiting for infection to clear before placing a tunneled cath. Patient is back on Monday, Monday, Monday dialysis. Wheezing improved and patient very happy about the nebulizer treatments and states it is breaking up what is in his chest. Objective Objective Vital Signs: Temp: [97 ??F (36.1 ??C)-98.6 ??F (37 ??C)] 98.6 ??F (37 ??C) Heart Rate: [73-94] 76 Resp: [12-18] 18 BP: (106-176)/(65-86) 124/72 Flow (L/min): [3-5] 5 Physical Exam: Constitutional: Alert, chronically ill-appearing male sitting up in bed in NAD ENT: [place], moist mucous membranes Respiratory: Nonlabored, symmetrical chest expansion, scattered wheezing, 96% RA Cardiovascular: RRR, no M/R/G, right tunneled cath removed Gastrointestinal: Soft, NT, ND +BS Musculoskeletal: [place]; +1 LE edema bilaterally, left FA fistula with 2 fluctuant abscesses present Neurologic: Oriented x4, strength symmetric in all extremities, follows all commands, speech clear Skin: No rashes on exposed skin Psychiatric: Pleasant and cooperative; normal affect Results Reviewed: LAB RESULTS: Lab 11/02/23 0751 11/01/23 0504 10/31/23 0504 10/30/23 0418 10/29/23 0503 10/28/23 0439 10/27/23 0500 WBC 6.79 7.66 4.16 5.35 7.31 5.50 4.56 HEMOGLOBIN 9.4* 10.0* 10.5* 9.6* 11.2* 10.8* 11.3* HEMATOCRIT 31.3* 32.5* 34.5* 32.4* 35.4* 34.9* 36.3* PLATELETS 227 230 203 198 220 217 233 NEUTROS ABS -- -- 1.90 3.08 5.44 3.14 2.61 IMMATURE GRANS (ABS) -- -- 0.16* 0.20* 0.15* 0.16* 0.13* LYMPHS ABS -- -- 1.08 0.99 0.58* 1.21 1.04 MONOS ABS -- -- 0.76 0.90 0.82 0.63 0.53 EOS ABS -- -- 0.23 0.15 0.29 0.33 0.23 MCV 104.7* 103.8* 101.8* 108.4* 102.6* 101.7* 102.0* Lab 11/02/23 0732 11/01/23 0504 10/31/23 0504 10/30/23 0418 10/29/23 0503 SODIUM 133* 132* 131* 132* 132* POTASSIUM 5.7* 5.3* 4.5 5.7* 4.6 CHLORIDE 97* 94* 94* 92* 91* CO2 21.0* 17.0* 20.0* 19.0* 19.0* ANION GAP 15.0 21.0* 17.0* 21.0* 22.0* BUN 37* 52* 39* 55* 35* CREATININE 8.12* 10.08* 7.99* 10.39* 7.90* EGFR 7.5* 5.8* 7.6* 5.6* 7.7* GLUCOSE 120* 121* 140* 99 164* CALCIUM 8.0* 7.7* 8.7 8.1* 8.8 Lab 11/01/23 0504 10/27/23 0500 TOTAL PROTEIN 6.5 6.5 ALBUMIN 3.8 4.1 GLOBULIN 2.7 2.4 ALT (SGPT) 11 8 AST (SGOT) 13 12 BILIRUBIN 0.2 0.4 ALK PHOS 105 129* Brief Urine Lab Results None Microbiology Results Abnormal Procedure Component Value - Date/Time Blood Culture - Blood, Hand, Right [[id number]] (Normal) Collected: 10/28/23 1342 Lab Status: Preliminary result Specimen: Blood from Hand, Right Updated: 11/01/23 1500 Blood Culture No growth at 4 days Blood Culture - Blood, Arm, Right [[id number]] (Normal) Collected: 10/28/23 1342 Lab Status: Preliminary result Specimen: Blood from Arm, Right Updated: 11/01/23 1500 Blood Culture No growth at 4 days Catheter Culture - Cath Tip, Chest, Right [[id number]] Collected: 10/30/23 1607 Lab Status: Final result Specimen: Cath Tip from Chest, Right Updated: 11/01/23 0712 CATHETER CULTURE No growth at 2 days Blood Culture ID, PCR - Blood, Arm, Right [[id number]] Collected: 10/26/23 0500 Lab Status: Final result Specimen: Blood from Arm, Right Updated: 10/27/23 1658 BCID, PCR Negative by BCID PCR. Culture to Follow. BOTTLE TYPE Anaerobic Bottle MRSA Screen, PCR (Inpatient) - Swab, Nares [[id number]] (Normal) Collected: 10/26/23 0515 Lab Status: Final result Specimen: Swab from Nares Updated: 10/26/23 0958 MRSA PCR Negative Narrative: The negative predictive value of this diagnostic test is high and should only be used to consider de-escalating anti-MRSA therapy. A positive result may indicate colonization with MRSA and must be correlated clinically. 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 Swab in UTM/VTM, 2 HR TAT - Swab, Nasopharynx [[id number]] (Normal) Collected: 10/26/23 0515 Lab Status: Final result Specimen: Swab from Nasopharynx Updated: 10/26/23 0620 ADENOVIRUS, PCR Not Detected Coronavirus 229E Not Detected Coronavirus HKU1 Not Detected Coronavirus NL63 Not Detected Coronavirus OC43 Not Detected COVID19 Not Detected Human Metapneumovirus Not Detected Human Rhinovirus/Enterovirus Not Detected Influenza A PCR Not Detected Influenza B PCR Not Detected Parainfluenza Virus 1 Not Detected Parainfluenza Virus 2 Not Detected Parainfluenza Virus 3 Not Detected Parainfluenza Virus 4 Not Detected RSV, PCR Not Detected Bordetella pertussis pcr Not Detected Bordetella parapertussis PCR Not Detected Chlamydophila pneumoniae PCR Not Detected Mycoplasma pneumo by PCR Not Detected Narrative: In the setting of a positive respiratory panel with a viral infection PLUS a negative procalcitoninwithout other underlying concern for bacterial infection, consider observing off antibiotics or discontinuation of antibiotics and continue supportive care. If the respiratory panel is positive for atypical bacterial infection (Bordetella pertussis, Chlamydophila pneumoniae, or Mycoplasma pneumoniae), consider antibiotic de-escalation to target atypical bacterial infection. IR NON-HUEY TEMP DIALYSIS ACC Result Date: 11/01/2023 IR NON-TUNNELED TEMP DIALYSIS ACCESS History: Need for temporary dialysis catheter placement. 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 Health Promoter: Victor Manuel Castro MD. Lead Sewage Plant Operator: None Modality: Sonography and fluoroscopy DOSE REDUCTION: The examination was performed according to departmental dose-op timization program which includes automated exposure control, adjustment of the mA and/or kV according to patient size. Fluoro time: 2.3. Radiation dose: 28 mGy air Kerma. Sedation: No IV sedation was given. Anesthesia: Lidocaine 1% local infiltration. Estimated blood loss: < 5 cc. Technique: A thorough discussion of the risks, benefits, and alternatives of the procedure, and if applicable, mod erate sedation, was carried out with the patient. They were encouraged to ask any questions. Any questions were answered. They verbalized understanding. A written informed consent was then signed. A multi-component timeout was performed prior to starting the procedure using the departmental protocol. The procedure room personnel used personal protective equipment. The operators used sterile gloves and if indicated, sterile gowns. The surgical site was prepped with chlorhexidine gluconate and draped in the maximal applicable sterile fashion. A preliminary ultrasonogram was performed of the target site that revealed a patent and compressible Right internal jugular vein. Pertinent ultrasound images were stored in the PACS for documentation. A sterile prep and drape of the neck and upper chest was performed using maximal technique. Using aseptic precautions, real-time ultrasound guidance, the target vein was accessed after local anesthetic infiltration and dermatotomy with an access needle. A guidewire was advanced into the central venous system under fluoroscopic guidance. Over the wire following standard exchanges a nontunneled temporary dialysis catheter was placed. The catheter ports aspirated and flushed well and were terminally packed with heparin. The catheter was secured to skin with nonabsorbable suture. An aseptic dressing was applied. The patient was transferred to the recovery area and was discharged from the department in stable condition. Complications: None immediate. Device: 14 Taiwanese x15 cm Dual- lumen nontunneled dialysis catheter . Findings: Patent and compressible Right internal jugular vein. Final image shows the catheter to be in good position with the catheter tip at the cavoatrial junction and an excellent position for use. There is no complication. Impression: Impression: Successful ultrasound and fluoroscopic guided Right internal jugular vein route nontunneled temporary dialysis catheter placement as described above. Thank you for the opportunity to assist in the care of your patient. Electronically Signed: Victor Manuel Castro MD 11/01/2023 1:57 PM EDT Workstation ID: [id number] Current medications: Scheduled Meds:entecavir, 0.5 mg, Oral, Weekly albumin human, , , aspirin, 81 mg, Oral, Daily calcitriol, 0.25 mcg, Oral, Daily carBAMazepine, 200 mg, Oral, Nightly carvedilol, 25 mg, Oral, BID With Meals cefTRIAXone, 2,000 mg, Intravenous, Q24H cinacalcet, 90 mg, Oral, Nightly cycloSPORINE modified, 100 mg, Oral, BID fenofibrate, 145 mg, Oral, Daily folic acid, 1,000 mcg, Oral, Daily gabapentin, 300 mg, Oral, Nightly guaiFENesin, 1,200 mg, Oral, Q12H hydrALAZINE, 100 mg, Oral, TID insulin lispro, 2-7 Units, Subcutaneous, 4x Daily AC & at Bedtime ipratropium-albuterol, 3 mL, Nebulization, 4x Daily - RT mycophenolate, 250 mg, Oral, Q12H NIFEdipine XL, 90 mg, Oral, BID pantoprazole, 40 mg, Oral, Q AM sodium chloride, 10 mL, Intravenous, Q12H sodium zirconium cyclosilicate, 10 g, Oral, BID Continuous Infusions: PRN Meds:.??? acetaminophen ??? albumin human ??? Albuterol Sulfate NEB Orderable ??? ALPRAZolam ??? senna-docusate sodium AND polyethylene glycol AND bisacodyl AND bisacodyl ??? dextrose ??? dextrose ??? diphenhydrAMINE ??? glucagon (human recombinant) ??? heparin (porcine) ??? melatonin ??? naloxone ??? ondansetron ??? oxyCODONE-acetaminophen ??? prochlorperazine OR prochlorperazine ??? promethazine OR promethazine ??? simethicone ??? [COMPLETED] Insert Peripheral IV AND sodium chloride ??? sodium chloride ??? sodium chloride Assessment & Plan Assessment & Plan Active Hospital Problems Diagnosis POA ??? Arm pain [M79.603] Yes ??? Pneumonia [J18.9] Yes ??? Hyperkalemia [E87.5] Yes ??? KIM (nonalcoholic steatohepatitis) [K75.81] Yes ??? History of liver transplant [Z94.4] Not Applicable ??? Immunosuppression [D84.9] Yes ??? Type 2 diabetes mellitus [E11.9] Yes ??? ESRD (end stage renal disease) [N18.6] Yes Resolved Hospital Problems No resolved problems to display. Brief Hospital Course to date: Aiden Stauffer Jr. is a 48 y.o. 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 Gruber, who presented for evaluation of worsening pain and swelling and AV fistula graft over the past 48 hours. Also found to have right lower lobe pneumonia. ESRD on HD Malfunctioning AVF with concern for possible infected graft Gram Positive Bacteremia -nephrology following, continue HD per nephrology -Dr. Gruber took for AVF ligation 10/26 -blood cultures NGTD x3d -continue IV Abx per ID -R chest HD catheter out; HD nontunneled catheter replaced 11/01/2023 -ECHO TTE with normal systolic function and no vegetation noted --Renal diet with fluid restriction less than 1500 mL/day --Waiting for infection to clear before a another tunneled cath placed --Dialyzed 10/31 in the evening --Follow up with Dr Sky @ [facility] after discharge --AM labs Hyperkalemia --K 5.7 --Lokelma BID x2 doses 11/01 --Did not receive Lokelma dose on 10/31 d/t dialysis --AM labs RLL Pneumonia -resp PCR negative, blood cultures negative -continue ABX per above -as needed pulmonary toilet, added mucinex --Scheduled and PRN nebulizers -will need to follow-up for resolution with repeat imaging outpatient History of KIM cirrhosis s/p liver transplant -continue antirejection meds: CellCept, mycophenolate -has been on entecavir, took last on 10/24 and takes weekly -follows at for transplant -CT abd/pelvis with no acute abnormality T2DM w/A1c 6.5 --24H glucose 118-223 --SSI H/o discitis/epidural abscess (2019) -s/p laminectomy and I&D of abscess by Dr. Garnica. Followed by ID/Dr. Rodriguez for his complete course of ABX JC -CPAP Anemia- -monitor hemoglobin Morbid obesity -complicates all aspects of care Expected Discharge Location and Transportation: Home Expected Discharge Expected Discharge Date: 11/04/2023; Expected Discharge Time: DVT prophylaxis: Medical and mechanical DVT prophylaxis orders are present. AM-PAC 6 Clicks Score (PT): 24 (11/02/23 0400) CODE STATUS: Code Status and Medical Interventions: Ordered at: 10/26/23 8602 Level Of Support Discussed With: Patient Code Status (Patient has no pulse and is not breathing): CPR (Attempt to Resuscitate) Medical Interventions (Patient has pulse or is breathing): Full Support Chiquita Porter APRN 11/02/23 * Karishma Hodge MD - 11/01/2023 9:03 AM EDT LOS: 5 days Patient Care Team: Edgar Fournier MD as PCP - General (Family Medicine) Claudia Calles MD as Consulting Physician (Cardiology) Chief Complaint: Infected AV fistula. 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 Patient admitted due to pain and infection. Subjective Seen and examined at bedside. No overnight issues. Interval History: AV fistula ligation done 10/27/[address] Gruber Blood cultures positive. Patient getting antibiotic. Objective Vital Sign Min/Max for last 24 hours No data recorded BP Min: 78/45 Max: 121/60 Pulse Min: 73 Max: 90 Resp Min: 14 Max: 18 SpO2 Min: 86 % Max: 97 % Flow (L/min) Min: 2 Max: 4 Weight Min: 122 kg (269 lb) Max: 122 kg (269 lb) Flowsheet Rows Flowsheet Row First Filed Value Admission Height 175.3 cm (69 ) Documented at 10/25/2023 2228 Admission Weight 136 kg (300 lb) Documented at 10/25/2023 2228 No intake/output data recorded. I/O last 3 completed shifts: In: 600 [P.O.:600] Out: - Physical Exam: General Appearance: Morbid obesity male Eyes: PER, EOMI. Neck: Supple no JVD. Lungs: Clear auscultation, no rales rhonchi's, equal chest movement, nonlabored. Heart: No gallop, murmur, rub, RRR. Abdomen: Soft, nontender, positive bowel sounds, obesity. Extremities: 1+ bilateral lower extremity edema no cyanosis. Neuro: No focal deficit, moving all extremities, alert oriented X 3 Left forearm AV fistula with areas of inflammation. No bruit WBC WBC Date Value Ref Range Status 11/01/2023 7.66 3.40 - 10.80 10*3/mm3 Final 10/31/2023 4.16 3.40 - 10.80 10*3/mm3 Final 10/30/2023 5.35 3.40 - 10.80 10*3/mm3 Final HGB Hemoglobin Date Value Ref Range Status 11/01/2023 10.0 (L) 13.0 - 17.7 g/dL Final 10/31/2023 10.5 (L) 13.0 - 17.7 g/dL Final 10/30/2023 9.6 (L) 13.0 - 17.7 g/dL Final HCT Hematocrit Date Value Ref Range Status 11/01/2023 32.5 (L) 37.5 - 51.0 % Final 10/31/2023 34.5 (L) 37.5 - 51.0 % Final 10/30/2023 32.4 (L) 37.5 - 51.0 % Final Platlets No results found for: LABPLAT MCV MCV Date Value Ref Range Status 11/01/2023 103.8 (H) 79.0 - 97.0 fL Final 10/31/2023 101.8 (H) 79.0 - 97.0 fL Final 10/30/2023 108.4 (H) 79.0 - 97.0 fL Final Sodium Sodium Date Value Ref Range Status 11/01/2023 132 (L) 136 - 145 mmol/L Final 10/31/2023 131 (L) 136 - 145 mmol/L Final 10/30/2023 132 (L) 136 - 145 mmol/L Final Potassium Potassium Date Value Ref Range Status 11/01/2023 5.3 (H) 3.5 - 5.2 mmol/L Final Comment: Slight hemolysis detected by analyzer. Result may be falsely elevated. 10/31/2023 4.5 3.5 - 5.2 mmol/L Final Comment: Slight hemolysis detected by analyzer. Result may be falsely elevated. 10/30/2023 5.7 (H) 3.5 - 5.2 mmol/L Final Comment: Slight hemolysis detected by analyzer. Result may be falsely elevated. Chloride Chloride Date Value Ref Range Status 11/01/2023 94 (L) 98 - 107 mmol/L Final 10/31/2023 94 (L) 98 - 107 mmol/L Final 10/30/2023 92 (L) 98 - 107 mmol/L Final CO2 CO2 Date Value Ref Range Status 11/01/2023 17.0 (L) 22.0 - 29.0 mmol/L Final 10/31/2023 20.0 (L) 22.0 - 29.0 mmol/L Final 10/30/2023 19.0 (L) 22.0 - 29.0 mmol/L Final BUN BUN Date Value Ref Range Status 11/01/2023 52 (H) 6 - 20 mg/dL Final 10/31/2023 39 (H) 6 - 20 mg/dL Final 10/30/2023 55 (H) 6 - 20 mg/dL Final Creatinine Creatinine Date Value Ref Range Status 11/01/2023 10.08 (H) 0.76 - 1.27 mg/dL Final 10/31/2023 7.99 (H) 0.76 - 1.27 mg/dL Final 10/30/2023 10.39 (H) 0.76 - 1.27 mg/dL Final Calcium Calcium Date Value Ref Range Status 11/01/2023 7.7 (L) 8.6 - 10.5 mg/dL Final 10/31/2023 8.7 8.6 - 10.5 mg/dL Final 10/30/2023 8.1 (L) 8.6 - 10.5 mg/dL Final PO4 No results found for: CAPO4 Albumin Albumin Date Value Ref Range Status 11/01/2023 3.8 3.5 - 5.2 g/dL Final Magnesium No results found for: MG Uric Acid No results found for: URICACID Results Review: I reviewed the patient's new clinical results. [START ON 11/02/2023] entecavir, 0.5 mg, Oral, Weekly albumin human, , , aspirin, 81 mg, Oral, Daily calcitriol, 0.25 mcg, Oral, Daily carBAMazepine, 200 mg, Oral, Nightly carvedilol, 25 mg, Oral, BID With Meals cefTRIAXone, 2,000 mg, Intravenous, Q24H cinacalcet, 90 mg, Oral, Nightly cycloSPORINE modified, 100 mg, Oral, BID fenofibrate, 145 mg, Oral, Daily folic acid, 1,000 mcg, Oral, Daily gabapentin, 300 mg, Oral, Nightly guaiFENesin, 1,200 mg, Oral, Q12H hydrALAZINE, 100 mg, Oral, TID insulin lispro, 2-7 Units, Subcutaneous, 4x Daily AC & at Bedtime mycophenolate, 250 mg, Oral, Q12H NIFEdipine XL, 90 mg, Oral, BID pantoprazole, 40 mg, Oral, Q AM sodium chloride, 10 mL, Intravenous, Q12H Medication Review: Reviewed Results from last 7 days Lab Units 11/01/23 0504 10/31/23 0504 10/30/23 0418 10/29/23 0503 10/28/23 0439 10/27/23 0500 10/26/23 1423 10/26/23 0703 10/26/23 0033 SODIUM mmol/L 132* 131* 132* 132* < > 134* -- 141 142 POTASSIUM mmol/L 5.3* 4.5 5.7* 4.6 < > 5.0 < > 5.4* 5.8* CHLORIDE mmol/L 94* 94* 92* 91* < > 95* -- 102 102 CO2 mmol/L 17.0* 20.0* 19.0* 19.0* < > 27.0 -- 21.0* 22.0 BUN mg/dL 52* 39* 55* 35* < > 41* -- 62* 60* CREATININE mg/dL 10.08* 7.99* 10.39* 7.90* < > 6.81* -- 10.13* 9.74* CALCIUM mg/dL 7.7* 8.7 8.1* 8.8 < > 9.0 -- 9.2 8.8 ALBUMIN g/dL 3.8 -- -- -- -- 4.1 -- 4.2 4.2 WBC 10*3/mm3 7.66 4.16 5.35 7.31 < > 4.56 -- 5.45 5.33 HEMOGLOBIN g/dL 10.0* 10.5* 9.6* 11.2* < > 11.3* -- 11.4* 11.3* PLATELETS 10*3/mm3 230 203 198 220 < > 233 -- 235 250 < > = values in this interval not displayed. Assessment & Plan Arm pain KIM (nonalcoholic steatohepatitis) History of liver transplant Immunosuppression Type 2 diabetes mellitus ESRD (end stage renal disease) Pneumonia 1. ESRD: On home hemodialysis initially via the AV fistula, now dialyzing with a tunneled catheter follow-up with Dr. Sky at [facility]. Dialyzes 4 times a week. 2. Infected AV fistula: AV fistula ligated 10/27/2023. Antibiotics per ID. 3. Metabolic acidosis: Due to renal failure. 4. Volume overload: corrected with dialysis. 5. KIM: History of liver transplant. On cyclosporine. 6. Type 2 diabetes. 7. Secondary hyperparathyroidism: On Cinacalcet 8. Hyperphosphatemia: On phosphate binders. 9. Vitamin D deficiency: On oral vitamin D. 10. Hyperlipidemia: On statin Recommendations: - Will get temporary dialysis catheter and HD today - Continue Monday dialysis schedule. - Renal diet with fluid restriction less than 1500 mL/day High risk complex patient with multiple medical problems. Karishma Hodge MD 11/01/23 09:03 EDT * Chiquita Porter APRN - 11/01/2023 9:02 AM EDT Images from the original note were not included. [facility] Medicine Services PROGRESS NOTE Patient Name: Aiden Stauffer Jr. : 1975 Date of Admission: 10/25/2023 Primary Care Physician: Edgar Fournier MD Subjective Subjective CC: AVF infection HPI: Patient sitting up in bed and states he has nausea on and off. No other complaints at this time butwondering what is happening with his dialysis port. Objective Objective Vital Signs: Temp: [97 ??F (36.1 ??C)-97.3 ??F (36.3 ??C)] 97 ??F (36.1 ??C) Heart Rate: [73-94] 84 Resp: [12-20] 18 BP: (106-176)/(54-86) 155/77 Flow (L/min): [3-4] 3 Physical Exam: Constitutional: Alert, chronically ill-appearing male sitting up in bed in NAD ENT: [place], moist mucous membranes Respiratory: Nonlabored, symmetrical chest expansion, expiratory wheezing bilaterally, 99% 3L Cardiovascular: RRR, no M/R/G, right tunneled cath removed Gastrointestinal: Soft, NT, ND +BS Musculoskeletal: [place]; +1 LE edema bilaterally, left FA fistula with 2 fluctuant abscesses Neurologic: Oriented x4, strength symmetric in all extremities, follows all commands, speech clear Skin: No rashes on exposed skin Psychiatric: Pleasant and cooperative; normal affect Results Reviewed: LAB RESULTS: Lab 11/01/23 0504 10/31/23 0504 10/30/23 0418 10/29/23 05010/28/23 0439 10/27/23 0500 WBC 7.66 4.16 5.35 7.31 5.50 4.56 HEMOGLOBIN 10.0* 10.5* 9.6* 11.2* 10.8* 11.3* HEMATOCRIT 32.5* 34.5* 32.4* 35.4* 34.9* 36.3* PLATELETS 230 203 198 220 217 233 NEUTROS ABS -- 1.90 3.08 5.44 3.14 2.61 IMMATURE GRANS (ABS) -- 0.16* 0.20* 0.15* 0.16* 0.13* LYMPHS ABS -- 1.08 0.99 0.58* 1.21 1.04 MONOS ABS -- 0.76 0.90 0.82 0.63 0.53 EOS ABS -- 0.23 0.15 0.29 0.33 0.23 MCV 103.8* 101.8* 108.4* 102.6* 101.7* 102.0* Lab 11/01/23 0504 10/31/23 0504 10/30/2341710/29/23 05010/28/23 0439 SODIUM 132* 131* 132* 132* 133* POTASSIUM 5.3* 4.5 5.7* 4.6 4.3 CHLORIDE 94* 94* 92* 91* 94* CO2 17.0* 20.0* 19.0* 19.0* 23.0 ANION GAP 21.0* 17.0* 21.0* 22.0* 16.0* BUN 52* 39* 55* 35* 23* CREATININE 10.08* 7.99* 10.39* 7.90* 5.33* EGFR 5.8* 7.6* 5.6* 7.7* 12.4* GLUCOSE 121* 140* 99 164* 139* CALCIUM 7.7* 8.7 8.1* 8.8 9.2 Lab 11/01/23 0504 10/27/23 0500 TOTAL PROTEIN 6.5 6.5 ALBUMIN 3.8 4.1 GLOBULIN 2.7 2.4 ALT (SGPT) 11 8 AST (SGOT) 13 12 BILIRUBIN 0.2 0.4 ALK PHOS 105 129* Brief Urine Lab Results None Microbiology Results Abnormal Procedure Component Value - Date/Time Blood Culture - Blood, Hand, Right [[id number]] (Normal) Collected: 10/28/23 1342 Lab Status: Preliminary result Specimen: Blood from Hand, Right Updated: 11/01/23 1500 Blood Culture No growth at 4 days Blood Culture - Blood, Arm, Right [[id number]] (Normal) Collected: 10/28/23 1342 Lab Status: Preliminary result Specimen: Blood from Arm, Right Updated: 11/01/23 1500 Blood Culture No growth at 4 days Catheter Culture - Cath Tip, Chest, Right [[id number]] Collected: 10/30/23 1607 Lab Status: Final result Specimen: Cath Tip from Chest, Right Updated: 11/01/23 0712 CATHETER CULTURE No growth at 2 days Blood Culture ID, PCR - Blood, Arm, Right [[id number]] Collected: 10/26/23 0500 Lab Status: Final result Specimen: Blood from Arm, Right Updated: 10/27/23 1658 BCID, PCR Negative by BCID PCR. Culture to Follow. BOTTLE TYPE Anaerobic Bottle MRSA Screen, PCR (Inpatient) - Swab, Nares [[id number]] (Normal) Collected: 10/26/23 0515 Lab Status: Final result Specimen: Swab from Nares Updated: 10/26/23 0958 MRSA PCR Negative Narrative: The negative predictive value of this diagnostic test is high and should only be used to consider de-escalating anti-MRSA therapy. A positive result may indicate colonization with MRSA and must be correlated clinically. 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 Swab in UTM/VTM, 2 HR TAT - Swab, Nasopharynx [[id number]] (Normal) Collected: 10/26/23 0515 Lab Status: Final result Specimen: Swab from Nasopharynx Updated: 10/26/23 0620 ADENOVIRUS, PCR Not Detected Coronavirus 229E Not Detected Coronavirus HKU1 Not Detected Coronavirus NL63 Not Detected Coronavirus OC43 Not Detected COVID19 Not Detected Human Metapneumovirus Not Detected Human Rhinovirus/Enterovirus Not Detected Influenza A PCR Not Detected Influenza B PCR Not Detected Parainfluenza Virus 1 Not Detected Parainfluenza Virus 2 Not Detected Parainfluenza Virus 3 Not Detected Parainfluenza Virus 4 Not Detected RSV, PCR Not Detected Bordetella pertussis pcr Not Detected Bordetella parapertussis PCR Not Detected Chlamydophila pneumoniae PCR Not Detected Mycoplasma pneumo by PCR Not Detected Narrative: In the setting of a positive respiratory panel with a viral infection PLUS a negative procalcitoninwithout other underlying concern for bacterial infection, consider observing off antibiotics or discontinuation of antibiotics and continue supportive care. If the respiratory panel is positive for atypical bacterial infection (Bordetella pertussis, Chlamydophila pneumoniae, or Mycoplasma pneumoniae), consider antibiotic de-escalation to target atypical bacterial infection. IR NON-HUEY TEMP DIALYSIS ACC Result Date: 11/01/2023 IR NON-TUNNELED TEMP DIALYSIS ACCESS History: Need for temporary dialysis catheter placement. 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 Health Promoter: Victor Manuel Castro MD. Lead Sewage Plant Operator: None Modality: Sonography and fluoroscopy DOSE REDUCTION: The examination was performed according to departmental dose-op timization program which includes automated exposure control, adjustment of the mA and/or kV according to patient size. Fluoro time: 2.3. Radiation dose: 28 mGy air Kerma. Sedation: No IV sedation was given. Anesthesia: Lidocaine 1% local infiltration. Estimated blood loss: < 5 cc. Technique: A thorough discussion of the risks, benefits, and alternatives of the procedure, and if applicable, mod erate sedation, was carried out with the patient. They were encouraged to ask any questions. Any questions were answered. They verbalized understanding. A written informed consent was then signed. A multi-component timeout was performed prior to starting the procedure using the departmental protocol. The procedure room personnel used personal protective equipment. The operators used sterile gloves and if indicated, sterile gowns. The surgical site was prepped with chlorhexidine gluconate and draped in the maximal applicable sterile fashion. A preliminary ultrasonogram was performed of the target site that revealed a patent and compressible Right internal jugular vein. Pertinent ultrasound images were stored in the PACS for documentation. A sterile prep and drape of the neck and upper chest was performed using maximal technique. Using aseptic precautions, real-time ultrasound guidance, the target vein was accessed after local anesthetic infiltration and dermatotomy with an access needle. A guidewire was advanced into the central venous system under fluoroscopic guidance. Over the wire following standard exchanges a nontunneled temporary dialysis catheter was placed. The catheter ports aspirated and flushed well and were terminally packed with heparin. The catheter was secured to skin with nonabsorbable suture. An aseptic dressing was applied. The patient was transferred to the recovery area and was discharged from the department in stable condition. Complications: None immediate. Device: 14 Taiwanese x15 cm Dual- lumen nontunneled dialysis catheter . Findings: Patent and compressible Right internal jugular vein. Final image shows the catheter to be in good position with the catheter tip at the cavoatrial junction and an excellent position for use. There is no complication. Impression: Impression: Successful ultrasound and fluoroscopic guided Right internal jugular vein route nontunneled temporary dialysis catheter placement as described above. Thank you for the opportunity to assist in the care of your patient. Electronically Signed: Victor Manuel Castro MD 11/01/2023 1:57 PM EDT Workstation ID: [id number] Current medications: Scheduled Meds:entecavir, 0.5 mg, Oral, Weekly albumin human, , , aspirin, 81 mg, Oral, Daily calcitriol, 0.25 mcg, Oral, Daily carBAMazepine, 200 mg, Oral, Nightly carvedilol, 25 mg, Oral, BID With Meals cefTRIAXone, 2,000 mg, Intravenous, Q24H cinacalcet, 90 mg, Oral, Nightly cycloSPORINE modified, 100 mg, Oral, BID fenofibrate, 145 mg, Oral, Daily folic acid, 1,000 mcg, Oral, Daily gabapentin, 300 mg, Oral, Nightly guaiFENesin, 1,200 mg, Oral, Q12H hydrALAZINE, 100 mg, Oral, TID insulin lispro, 2-7 Units, Subcutaneous, 4x Daily AC & at Bedtime ipratropium-albuterol, 3 mL, Nebulization, 4x Daily - RT mycophenolate, 250 mg, Oral, Q12H NIFEdipine XL, 90 mg, Oral, BID pantoprazole, 40 mg, Oral, Q AM sodium chloride, 10 mL, Intravenous, Q12H sodium zirconium cyclosilicate, 10 g, Oral, Once Continuous Infusions: PRN Meds:. acetaminophen albumin human Albuterol Sulfate NEB Orderable ALPRAZolam senna-docusate sodium AND polyethylene glycol AND bisacodyl AND bisacodyl dextrose dextrose diphenhydrAMINE glucagon (human recombinant) heparin (porcine) melatonin naloxone ondansetron oxyCODONE-acetaminophen prochlorperazine OR prochlorperazine promethazine OR promethazine simethicone [COMPLETED] Insert Peripheral IV AND sodium chloride sodium chloride sodium chloride Assessment & Plan Assessment & Plan Active Hospital Problems Diagnosis POA Arm pain [M79.603] Yes Pneumonia [J18.9] Yes Hyperkalemia [E87.5] Yes KIM (nonalcoholic steatohepatitis) [K75.81] Yes History of liver transplant [Z94.4] Not Applicable Immunosuppression [D84.9] Yes Type 2 diabetes mellitus [E11.9] Yes ESRD (end stage renal disease) [N18.6] Yes Resolved Hospital Problems No resolved problems to display. Brief Hospital Course to date: Aiden Stauffer Jr. is a 48 y.o. 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 Gruber, who presented for evaluation of worsening pain and swelling and AV fistula graft over the past 48 hours. Also found to have right lower lobe pneumonia. These problems are new to me today This patient's problems and plans were partially entered by my partner and updated as appropriate by me 11/02/23. ESRD on HD Malfunctioning AVF with concern for possible infected graft Gram Positive Bacteremia -nephrology following, continue HD per nephrology -Dr. Gruber took for AVF ligation 10/26 -blood cultures NGTD x3d -continue IV Abx per ID -R chest HD catheter out; HD catheter replaced 11/01/2023 -ECHO TTE with normal systolic function and no vegetation noted Hyperkalemia --K 5.3 --Lokelma x1 dose --AM labs RLL Pneumonia -resp PCR negative, blood cultures negative -continue ABX per above -as needed pulmonary toilet, added mucinex --Scheduled and PRN nebulizers ordered -will need to follow-up for resolution with repeat imaging outpatient History of KIM cirrhosis s/p liver transplant -continue antirejection meds: CellCept, mycophenolate -has been on entecavir, took last on 10/24 and takes weekly -follows at for transplant -CT abd/pelvis with no acute abnormality T2DM w/A1c 6.5 --24H glucose 121-270 --SSI H/o discitis/epidural abscess (2019) -s/p laminectomy and I&D of abscess by Dr. Garnica. Followed by ID/Dr. Rodriguez for his complete course of ABX JC -CPAP Anemia- -monitor hemoglobin Morbid obesity -complicates all aspects of care Expected Discharge Location and Transportation: Home Expected Discharge Expected Discharge Date: 11/03/2023; Expected Discharge Time: DVT prophylaxis: Medical and mechanical DVT prophylaxis orders are present. AM-PAC 6 Clicks Score (PT): 24 (11/02/23 0400) CODE STATUS: Code Status and Medical Interventions: Ordered at: 10/26/23 0356 Level Of Support Discussed With: Patient Code Status (Patient has no pulse and is not breathing): CPR (Attempt to Resuscitate) Medical Interventions (Patient has pulse or is breathing): Full Support Chiquita Porter APRN 11/02/23 * Mark Edwards MD - 10/31/2023 6:36 PM EDT LOS: 4 days Patient Care Team: Edgar Fournier MD as PCP - General (Family Medicine) Claudia Calles MD as Consulting Physician (Cardiology) Chief Complaint: Infected AV fistula. 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 Patient admitted due to pain and infection. Subjective Seen and examined at bedside. No overnight issues. Reports feeling better. Tunneled dialysis catheter removed yesterday. Interval History: AV fistula ligation done 10/27/[address] Gruber Blood cultures positive. Patient getting antibiotic. Objective Vital Sign Min/Max for last 24 hours Temp Min: 99.7 ??F (37.6 ??C) Max: 99.7 ??F (37.6 ??C) BP Min: 103/56 Max: 152/77 Pulse Min: 74 Max: 89 Resp Min: 14 Max: 20 SpO2 Min: 91 % Max: 95 % No data recorded No data recorded Flowsheet Rows Flowsheet Row First Filed Value Admission Height 175.3 cm (69 ) Documented at 10/25/20238 Admission Weight 136 kg (300 lb) Documented at 10/25/20238 I/O this shift: In: 600 [P.O.:600] Out: - I/O last 3 completed shifts: In: 360 [P.O.:360] Out: 3830 Physical Exam: General Appearance: Morbid obesity male Eyes: PER, EOMI. Neck: Supple no JVD. Lungs: Clear auscultation, no rales rhonchi's, equal chest movement, nonlabored. Heart: No gallop, murmur, rub, RRR. Abdomen: Soft, nontender, positive bowel sounds, obesity. Extremities: 1+ bilateral lower extremity edema no cyanosis. Neuro: No focal deficit, moving all extremities, alert oriented X 3 Left forearm AV fistula with areas of inflammation. No bruit WBC WBC Date Value Ref Range Status 10/31/2023 4.16 3.40 - 10.80 10*3/mm3 Final 10/30/2023 5.35 3.40 - 10.80 10*3/mm3 Final 10/29/2023 7.31 3.40 - 10.80 10*3/mm3 Final HGB Hemoglobin Date Value Ref Range Status 10/31/2023 10.5 (L) 13.0 - 17.7 g/dL Final 10/30/2023 9.6 (L) 13.0 - 17.7 g/dL Final 10/29/2023 11.2 (L) 13.0 - 17.7 g/dL Final HCT Hematocrit Date Value Ref Range Status 10/31/2023 34.5 (L) 37.5 - 51.0 % Final 10/30/2023 32.4 (L) 37.5 - 51.0 % Final 10/29/2023 35.4 (L) 37.5 - 51.0 % Final Platlets No results found for: LABPLAT MCV MCV Date Value Ref Range Status 10/31/2023 101.8 (H) 79.0 - 97.0 fL Final 10/30/2023 108.4 (H) 79.0 - 97.0 fL Final 10/29/2023 102.6 (H) 79.0 - 97.0 fL Final Sodium Sodium Date Value Ref Range Status 10/31/2023 131 (L) 136 - 145 mmol/L Final 10/30/2023 132 (L) 136 - 145 mmol/L Final 10/29/2023 132 (L) 136 - 145 mmol/L Final Potassium Potassium Date Value Ref Range Status 10/31/2023 4.5 3.5 - 5.2 mmol/L Final Comment: Slight hemolysis detected by analyzer. Result may be falsely elevated. 10/30/2023 5.7 (H) 3.5 - 5.2 mmol/L Final Comment: Slight hemolysis detected by analyzer. Result may be falsely elevated. 10/29/2023 4.6 3.5 - 5.2 mmol/L Final Chloride Chloride Date Value Ref Range Status 10/31/2023 94 (L) 98 - 107 mmol/L Final 10/30/2023 92 (L) 98 - 107 mmol/L Final 10/29/2023 91 (L) 98 - 107 mmol/L Final CO2 CO2 Date Value Ref Range Status 10/31/2023 20.0 (L) 22.0 - 29.0 mmol/L Final 10/30/2023 19.0 (L) 22.0 - 29.0 mmol/L Final 10/29/2023 19.0 (L) 22.0 - 29.0 mmol/L Final BUN BUN Date Value Ref Range Status 10/31/2023 39 (H) 6 - 20 mg/dL Final 10/30/2023 55 (H) 6 - 20 mg/dL Final 10/29/2023 35 (H) 6 - 20 mg/dL Final Creatinine Creatinine Date Value Ref Range Status 10/31/2023 7.99 (H) 0.76 - 1.27 mg/dL Final 10/30/2023 10.39 (H) 0.76 - 1.27 mg/dL Final 10/29/2023 7.90 (H) 0.76 - 1.27 mg/dL Final Calcium Calcium Date Value Ref Range Status 10/31/2023 8.7 8.6 - 10.5 mg/dL Final 10/30/2023 8.1 (L) 8.6 - 10.5 mg/dL Final 10/29/2023 8.8 8.6 - 10.5 mg/dL Final PO4 No results found for: CAPO4 Albumin No results found for: ALBUMIN Magnesium No results found for: MG Uric Acid No results found for: URICACID Results Review: I reviewed the patient's new clinical results. [START ON 11/02/2023] entecavir, 0.5 mg, Oral, Weekly albumin human, , , aspirin, 81 mg, Oral, Daily calcitriol, 0.25 mcg, Oral, Daily carBAMazepine, 200 mg, Oral, Nightly carvedilol, 25 mg, Oral, BID With Meals cefTRIAXone, 2,000 mg, Intravenous, Q24H cinacalcet, 90 mg, Oral, Nightly cycloSPORINE modified, 100 mg, Oral, BID fenofibrate, 145 mg, Oral, Daily folic acid, 1,000 mcg, Oral, Daily gabapentin, 300 mg, Oral, Nightly guaiFENesin, 1,200 mg, Oral, Q12H hydrALAZINE, 100 mg, Oral, TID insulin lispro, 2-7 Units, Subcutaneous, 4x Daily AC & at Bedtime mycophenolate, 250 mg, Oral, Q12H NIFEdipine XL, 90 mg, Oral, BID pantoprazole, 40 mg, Oral, Q AM sodium chloride, 10 mL, Intravenous, Q12H Medication Review: Reviewed Assessment & Plan Arm pain KIM (nonalcoholic steatohepatitis) History of liver transplant Immunosuppression Type 2 diabetes mellitus ESRD (end stage renal disease) Pneumonia 1. ESRD: On home hemodialysis initially via the AV fistula, now dialyzing with a tunneled catheter follow-up with Dr. Sky at [facility]. Dialyzes 4 times a week. 2. Infected AV fistula: AV fistula ligated 10/27/2023. Antibiotics per ID. 3. Metabolic acidosis: Due to renal failure. 4. Volume overload: corrected with dialysis. 5. KIM: History of liver transplant. On cyclosporine. 6. Type 2 diabetes. 7. Secondary hyperparathyroidism: On Cinacalcet 8. Hyperphosphatemia: On phosphate binders. 9. Vitamin D deficiency: On oral vitamin D. 10. Hyperlipidemia: On statin Recommendations: Hemodialysis yesterday. HD catheter removed per ID. No indication for dialysis today. In hospital we will continue Monday dialysis schedule. Will evaluate for dialysis on daily basis. Needs dialysis catheter. Hyperkalemia/metabolic acidosis: Improved with dialysis. Renal diet with fluid restriction less than 1500 mL/day High risk complex patient with multiple medical problems. Mark Edwards MD 10/31/23 18:36 EDT * Scar Richardson MD - 10/31/2023 2:51 PM EDT Images from the original note were not included. . INFECTIOUS DISEASE PROGRESS NOTE Aiden Stauffer . 1975 [id number] Date of Consult: 10/27/2023 Admission Date: 10/25/2023 Requesting Provider: Michelle Shore DO Evaluating Physician: Scar Richardson MD Reason for Consultation: Infected AVF, immunocompromised patient. History of present illness: Patient is a 48 y.o. male with h/o T2DM, ESRD/HD/temporary dialysis cath 08/11/23/LUE AVF malfunctioning since 08/10/23, morbid obesity, KIM liver cirrhosis s/p liver transplant 2017 on chronic immunosuppression with Cyclosporine and CellCept/Hep B liver/on Entecavir, on and discitis/epidural abscess/laminectomy/I and D 2019 (treated by Dr. Cayetano Rodriguez) who was admitted to [facility] on 10/24 for pain at LUE AVF site that has been ongoing for 4 months. 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 He was treated with Zosyn and Vancomycin.He was discharged home on oral cefuroxime and oral doxycycline for 4 days. He returned to [facility] ED on 3/13 for worsening pain, swelling, and redness at LUE AVF site. He was scheduled for a revision by Dr. Gruber. He was afebrile with intermittent hypertension. He remains on room air. Initial labs were WBC 5300 with 67% segs, PCT 0.44, lactic acid 0.7, creatinine 9.74, and K 5.8. A respiratory panel PCR was negative. A MRSA PCR was negative. Blood cultures are negative todate. A CXR on 10/25/23 showed RLL pneumonia although not extremely impressive. He is currently on Zosyn and Vancomycin. ID was asked to evaluate and manage his antibiotic therapy. 10/28/23: Blood cultures positive for GPC in pairs/chains with BCID PCR negative. MRSA screen negative. Tmax 99.8. Patient denies any worsening cough. He denies f/c, v/d, rashes. He has chronic nausea. He states the dialysis catheter has had some bumps around the insertion site. 10/29/23: Afebrile. Blood culture with GPC ID/S pending. Repeat blood cultures pending. He continuesto have chronic nausea. He denies f/c, soa, v/d, rashes. He is worried about the dialysis catheter and feels it should be removed. 10/30/23: Tmax 100.2, now afebrile. Blood culture with GPC with and ID that was an odd species, reno is rerunning the culture and if it remains an odd result, then it will be sent to a referencelab. The patient is awaiting dialysis cath removal and placement of new line. He denies any worsening left arm pain. He denies soa, n/v/d, rashes. 10/31/23; doing well; no events overnight; no fever, rash, sore throat Past Medical History: Diagnosis Date Diabetes mellitus Dialysis patient Hemorrhage THROAT VARICIES Kidney failure Liver transplanted Past Surgical History: Procedure Laterality Date ARTERIOVENOUS FISTULA Left 2019 ARTERIOVENOUS FISTULA/SHUNT SURGERY Left 10/27/2023 Procedure: ARTERIOVENOUS FISTULA LIGATION LEFT; Surgeon: Dontae Gruber MD; Location: [facility] BEDS AT THE [facility]; Service: Vascular; Laterality: Left; CARDIAC CATHETERIZATION times 2022 CHOLECYSTECTOMY ENDOSCOPY N/A 05/04/2020 Procedure: ESOPHAGOGASTRODUODENOSCOPY; Surgeon: Dewey Betancourt MD; Location: [facility]; Service: Gastroenterology; Laterality: N/A; LUMBAR LAMINECTOMY DISCECTOMY DECOMPRESSION N/A 04/29/2020 Procedure: LUMBAR LAMINECTOMY DISCECTOMY DECOMPRESSION POSTERIOR L4-5; Surgeon: Yinka Garnica MD; Location: [facility]; Service: Neurosurgery; Laterality: N/A; History reviewed. No pertinent family history. Social History Socioeconomic History Marital status: Tobacco Use Smoking status: Never Passive exposure: Never Smokeless tobacco: Never Vaping Use Vaping status: Never Used Substance and Sexual Activity Alcohol use: Never Drug use: Never Sexual activity: Defer Allergies Allergen Reactions Tacrolimus Other (See Comments) and Unknown - High Severity Anxious feeling and muscle jerking. TOLERATED ENVARSUS BETTER THAN PROGRAF. Codeine Anxiety and Unknown - Low Severity Calcitriol GI Intolerance Medication: Current Facility-Administered Medications: [START ON 11/02/2023] *Patient Supplied* entecavir (BARACLUDE) tablet 0.5 mg, 0.5 mg, Oral, Weekly, Dontae Gruber MD acetaminophen (TYLENOL) tablet 650 mg, 650 mg, Oral, Q4H PRN, Dontae Gruber MD, 650 mg at10/27/23 1329 albumin human 25 % IV SOLN - ADS Override Pull, , , , albumin human 25 % IV SOLN 12.5 g, 12.5 g, Intravenous, PRN, Mark Edwards MD ALPRAZolam (XANAX) tablet 0.5 mg, 0.5 mg, Oral, Daily PRN, Dontae Gruber MD, 0.5 mg at 10/30/23 0716 aspirin chewable tablet 81 mg, 81 mg, Oral, Daily, Dontae Gruber MD, 81 mg at 10/31/23 0832 sennosides-docusate (PERICOLACE) 8.6-50 MG per tablet 2 tablet, 2 tablet, Oral, BID PRN AND polyethylene glycol (MIRALAX) packet 17 g, 17 g, Oral, Daily PRN AND bisacodyl (DULCOLAX) EC tablet5 mg, 5 mg, Oral, Daily PRN AND bisacodyl (DULCOLAX) suppository 10 mg, 10 mg, Rectal, Daily PRN, Dontae Gruber MD calcitriol (ROCALTROL) capsule 0.25 mcg, 0.25 mcg, Oral, Daily, Dontae Gruber MD, 0.25 mcg at 10/31/23833 carBAMazepine (TEGretol) tablet 200 mg, 200 mg, Oral, Nightly, Dontae Gruber MD, 200 mg at 10/30/232046 carvedilol (COREG) tablet 25 mg, 25 mg, Oral, BID With Meals, Dontae Gruber MD, 25 mg at 10/31/23831 cefTRIAXone (ROCEPHIN) 2,000 mg in sodium chloride 0.9 % 100 mL MBP, 2,000 mg, Intravenous, Q24H, Giancarlo Valderrama PA, Last Rate: 200 mL/hr at 10/30/23 1734, 2,000 mg at 10/30/231733 cinacalcet (SENSIPAR) tablet 90 mg, 90 mg, Oral, Nightly, Dontae Gruber MD, 90 mg at 10/30/232047 cycloSPORINE modified (NEORAL) capsule 100 mg, 100 mg, Oral, BID, Dontae Gruber MD, 100 mg at 10/31/23833 dextrose (D50W) (25 g/50 mL) IV injection 25 g, 25 g, Intravenous, Q15 Min PRN, Dontae Gruber MD dextrose (GLUTOSE) oral gel 15 g, 15 g, Oral, Q15 Min PRN, Dontae Gruber MD diphenhydrAMINE (BENADRYL) capsule 25 mg, 25 mg, Oral, Q6H PRN, Michelle Shore DO, 25 mg at 10/30/23 221 fenofibrate (TRICOR) tablet 145 mg, 145 mg, Oral, Daily, Dontae Gruber MD, 145 mg at 10/31/23 08 folic acid (FOLVITE) tablet 1,000 mcg, 1,000 mcg, Oral, Daily, Dontae Gruber MD, 1,000 mcg at 10/31/23 0832 gabapentin (NEURONTIN) capsule 300 mg, 300 mg, Oral, Nightly, Dontae Gruber MD, 300 mg at10/30/23 204 glucagon (GLUCAGEN) injection 1 mg, 1 mg, Intramuscular, Q15 Min PRN, Dontae Gruber MD guaiFENesin (MUCINEX) 12 hr tablet 1,200 mg, 1,200 mg, Oral, Q12H, Michelle Shore DO, 1,200 mg at 10/31/23 0832 heparin (porcine) injection 2,000 Units, 2,000 Units, Intracatheter, PRN, Dontae Gruber MD, 2,000 Units at 10/26/23 1357 hydrALAZINE (APRESOLINE) tablet 100 mg, 100 mg, Oral, TID, Dontae Gruber MD, 100 mg at 10/31/23 1304 Insulin Lispro (humaLOG) injection 2-7 Units, 2-7 Units, Subcutaneous, 4x Daily AC & at Bedtime, Dontae Gruber MD, 2 Units at 10/30/23 204 melatonin tablet 5 mg, 5 mg, Oral, Nightly PRN, Dontae Gruber MD mycophenolate (CELLCEPT) capsule 250 mg, 250 mg, Oral, Q12H, Dontae Gruber MD, 250 mg at 10/31/23 0833 naloxone (NARCAN) injection 0.4 mg, 0.4 mg, Intravenous, PRN, Dontae Gruber MD NIFEdipine XL (PROCARDIA XL) 24 hr tablet 90 mg, 90 mg, Oral, BID, Dontae Gruber MD, 90 mg at 10/31/23 0832 ondansetron (ZOFRAN) injection 4 mg, 4 mg, Intravenous, Q6H PRN, Dontae Gruber MD, 4 mg at 10/31/23 0827 oxyCODONE-acetaminophen (PERCOCET) 5-325 MG per tablet 1 tablet, 1 tablet, Oral, Q4H PRN, Michelle Shore DO, 1 tablet at 10/31/23 1304 pantoprazole (PROTONIX) EC tablet 40 mg, 40 mg, Oral, Q AM, Dontae Gruber MD, 40 mg at 10/31/23 0603 prochlorperazine (COMPAZINE) injection 5 mg, 5 mg, Intravenous, Q6H PRN, 5 mg at 10/31/23 1309 OR prochlorperazine (COMPAZINE) tablet 5 mg, 5 mg, Oral, Q6H PRN, Kevin Muller MD promethazine (PHENERGAN) tablet 12.5 mg, 12.5 mg, Oral, Q6H PRN, 12.5 mg at 10/31/23 1035 OR promethazine (PHENERGAN) suppository 12.5 mg, 12.5 mg, Rectal, Q6H PRN, Dontae Gruber MD [COMPLETED] Insert Peripheral IV, , , Once AND sodium chloride 0.9 % flush 10 mL, 10 mL, Intravenous, PRN, Dontae Gruber MD sodium chloride 0.9 % flush 10 mL, 10 mL, Intravenous, Q12H, Dontae Gruber MD, 10 mL at 10/31/23 0834 sodium chloride 0.9 % flush 10 mL, 10 mL, Intravenous, PRN, Dontae Gruber MD sodium chloride 0.9 % infusion 40 mL, 40 mL, Intravenous, PRN, Dontae Gruber MD Antibiotics: Anti-Infectives (From admission, onward) Ordered Dose/Rate Route Frequency Start Stop 10/26/23 1215 *Patient Supplied* entecavir (BARACLUDE) tablet 0.5 mg Ordering Provider: Dontae Gruber MD 0.5 mg Oral Weekly 11/02/23 0900 10/30/23 1603 cefTRIAXone (ROCEPHIN) 2,000 mg in sodium chloride 0.9 % 100 mL MBP Ordering Provider: Giancarlo Valderrama PA 2,000 mg 200 mL/hr over 30 Minutes Intravenous Every 24 Hours 10/30/23 1700 11/13/23 1659 10/27/23 1531 vancomycin IVPB 2000 mg in 0.9% Sodium Chloride 500 mL Ordering Provider: Dontae Gruber MD 15 mg/kg ?? 136 kg 250 mL/hr over 120 Minutes Intravenous Once 10/27/23 2100 10/27/23 2300 10/26/23 0356 piperacillin-tazobactam (ZOSYN) 4.5 g IVPB in 100 mL NS MBP (CD) Ordering Provider: Beulah Fleming DO 4.5 g over 30 Minutes Intravenous Once 10/26/23 0410 10/26/23 0641 10/26/23 0305 vancomycin 2750 mg/500 mL 0.9% NS IVPB ([facility]) Ordering Provider: Terry Burgess MD 20 mg/kg ?? 136 kg over 165 Minutes Intravenous Once 10/26/23 0321 10/26/23 0941 Review of Systems: See above. Physical Exam: Vital Signs Temp (24hrs), Av ??F (37.2 ??C), Min:98.3 ??F (36.8 ??C), Max:99.7 ??F (37.6 ??C) Temp Min: 98.3 ??F (36.8 ??C) Max: 99.7 ??F (37.6 ??C) BP Min: 103/56 Max: 157/84 Pulse Min: 80 Max: 89 Resp Min: 16 Max: 20 SpO2 Min: 91 % Max: 94 % GENERAL: Awake and alert, in no acute distress. HEENT:EOMI. No conjunctival injection. No icterus. No ext oral lesions HEART: RRR; No murmur. LUNGS: Clear to auscultation bilaterally ABDOMEN: Soft, nontender, EXT: No edema. : Without Anders catheter. MSK: No joint effusions or erythema SKIN: Warm and dry without cutaneous eruptions on Inspection/palpation. NEURO: Oriented to PPT. Motor 5/5 strength PSYCHIATRIC: Normal insight and judgment. Cooperative with PE Dialysis catheter with lesions around the insertion site with possible infection of sutures. Laboratory Data Results from last 7 days Lab Units 10/31/23 0504 10/30/23 0418 10/29/23 0503 WBC 10*3/mm3 4.16 5.35 7.31 HEMOGLOBIN g/dL 10.5* 9.6* 11.2* HEMATOCRIT % 34.5* 32.4* 35.4* PLATELETS 10*3/mm3 203 198 220 Results from last 7 days Lab Units 10/31/23 0504 SODIUM mmol/L 131* POTASSIUM mmol/L 4.5 CHLORIDE mmol/L 94* CO2 mmol/L 20.0* BUN mg/dL 39* CREATININE mg/dL 7.99* GLUCOSE mg/dL 140* CALCIUM mg/dL 8.7 Results from last 7 days Lab Units 10/27/23 0500 ALK PHOS U/L 129* BILIRUBIN mg/dL 0.4 ALT (SGPT) U/L 8 AST (SGOT) U/L 12 Results from last 7 days Lab Units 10/26/23 0033 LACTATE mmol/L 0.7 Results from last 7 days Lab Units 10/30/23 0418 10/27/23 0500 VANCOMYCIN RM mcg/mL 22.60 7.70 Estimated Creatinine Clearance: 15.3 mL/min (A) (by C-G formula based on SCr of 7.99 mg/dL (H)). Microbiology: Microbiology Results (last 10 days) Procedure Component Value - Date/Time Catheter Culture - Cath Tip, Chest, Right [[id number]] Collected: 10/30/23 1607 Lab Status: Preliminary result Specimen: Cath Tip from Chest, Right Updated: 10/31/23 0816 CATHETER CULTURE No growth Blood Culture - Blood, Hand, Right [[id number]] (Normal) Collected: 10/28/23 1342 Lab Status: Preliminary result Specimen: Blood from Hand, Right Updated: 10/30/23 1500 Blood Culture No growth at 2 days Blood Culture - Blood, Arm, Right [[id number]] (Normal) Collected: 10/28/23 1342 Lab Status: Preliminary result Specimen: Blood from Arm, Right Updated: 10/30/23 1500 Blood Culture No growth at 2 days Blood Culture - Blood, Hand, Right [[id number]] (Abnormal) Collected: 10/26/23 0536 Lab Status: Preliminary result Specimen: Blood from Hand, Right Updated: 10/31/23 0613 Blood Culture Gram Positive Cocci Comment: Sending other set to [facility] for ID and MICs Isolated from -- Gram Stain Aerobic Bottle Gram positive cocci in pairs and chains Narrative: Refer to previous blood culture collected on 10/26/2023 0500 for MICs Less than seven (7) mL's of blood was collected. Insufficient quantity may yield false negative results. 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 Swab in UTM/VTM, 2 HR TAT - Swab, Nasopharynx [[id number]] (Normal) Collected: 10/26/23514 Lab Status: Final result Specimen: Swab from Nasopharynx Updated: 10/26/23 0620 ADENOVIRUS, PCR Not Detected Coronavirus 229E Not Detected Coronavirus HKU1 Not Detected Coronavirus NL63 Not Detected Coronavirus OC43 Not Detected COVID19 Not Detected Human Metapneumovirus Not Detected Human Rhinovirus/Enterovirus Not Detected Influenza A PCR Not Detected Influenza B PCR Not Detected Parainfluenza Virus 1 Not Detected Parainfluenza Virus 2 Not Detected Parainfluenza Virus 3 Not Detected Parainfluenza Virus 4 Not Detected RSV, PCR Not Detected Bordetella pertussis pcr Not Detected Bordetella parapertussis PCR Not Detected Chlamydophila pneumoniae PCR Not Detected Mycoplasma pneumo by PCR Not Detected Narrative: In the setting of a positive respiratory panel with a viral infection PLUS a negative procalcitoninwithout other underlying concern for bacterial infection, consider observing off antibiotics or discontinuation of antibiotics and continue supportive care. If the respiratory panel is positive for atypical bacterial infection (Bordetella pertussis, Chlamydophila pneumoniae, or Mycoplasma pneumoniae), consider antibiotic de-escalation to target atypical bacterial infection. MRSA Screen, PCR (Inpatient) - Swab, Nares [[id number]] (Normal) Collected: 10/26/23514 Lab Status: Final result Specimen: Swab from Nares Updated: 10/26/23 09 MRSA PCR Negative Narrative: The negative predictive value of this diagnostic test is high and should only be used to consider de-escalating anti-MRSA therapy. A positive result may indicate colonization with MRSA and must be correlated clinically. MRSA Negative Blood Culture - Blood, Arm, Right [[id number]] (Abnormal) Collected: 10/26/23499 Lab Status: Preliminary result Specimen: Blood from Arm, Right Updated: 10/31/23613 Blood Culture Gram Positive Cocci Comment: Sending to [facility] for ID and MICs Isolated from -- Gram Stain Anaerobic Bottle Gram positive cocci in pairs and chains Aerobic Bottle Gram positive bacilli Narrative: Less than seven (7) mL's of blood was collected. Insufficient quantity may yield false negative results. Blood culture does not meet the specified criteria for PCR identification. If , immunocompromised, or clinical concern for meningitis, call lab to run BCID for Listeria monocytogenes. Blood Culture ID, PCR - Blood, Arm, Right [[id number]] Collected: 03/14/24 0500 Lab Status: Final result Specimen: Blood from Arm, Right Updated: 10/27/23 1658 BCID, PCR Negative by BCID PCR. Culture to Follow. BOTTLE TYPE Anaerobic Bottle Radiology: Imaging Results (Last 72 Hours) Procedure Component Value Units Date/Time IR Removal Tunnel CV Cath Without Port [[id number]] Collected: 10/30/23 1635 Updated: 10/31/23 1247 Narrative: IR REMOVAL TUNNEL CV CATH WO PORT History: bacteremia, immunocompromised Health Promoter: Victor Manuel Castro MD. Modality: Not applicable. No sedation. Anesthesia: Lidocaine 1% Estimated blood loss: < 5 cc. Technique: A universal timeout was performed prior to starting the procedure. The baling press operator used personal protective equipment and sterile gloves. The ipsilateral lower neck and chest were prepped with chlorhexidine gluconate and draped in the maximal sterile fashion. Local anesthesia was infiltrated along the tunnel and exit site. Using sharp and blunt dissection the catheter cuff was freed and the catheter removed in its entirety. An aseptic dressing was applied. The patient was in stable condition. Complications: None immediate. Impression: Impression: Successful removal of a right IJ route tunneled dialysis catheter as described above. Thank you for the opportunity to assist in the care of your patient. I, Aubrey Velasco MD, have personally reviewed the image(s) and the prepared and signed interpretation by Brandy Feliz NP. Based on my review, I agree with the findings. Report dictated by: Brandy Feliz APRN I have personally reviewed this case and agree with the findings above: Electronically Signed: Aubrey Velasco MD 10/31/2023 12:44 PM EDT Workstation ID: [id number] Impression: - Left upper extremity atriovenous graft infection. Awaiting revision on 10/26. Blood cultures negative to date. 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 - Morbid obesity - End Stage renal disease/HD by dialysis catheter/left UE AVF malfunctioning and infected. - Type 2 diabetes mellitus - gram positive bacteremia--likely streptococcus/enterococcus. Concerning for dialysis line infection vs AVF as source. PLAN/RECOMMENDATIONS: Thank you for asking us to see Aiden Stauffer Jr., I recommend the following: - Follow blood cultures--GPC, ID/S pending. Colonies still too tiny to evaluate on plate per micro.They are rerunning the microscan. - contRocephin 2 GM IV daily - Continue LUE wound care per Dr. Gruber - Awaiting IR removal of current dialysis catheter and placement of new catheter. - Consider TTE to r/o endocarditis--not ordered yet. - Repeat blood cultures--NGTD . Scar Richardson MD 10/31/2023 14:51 EDT * Kevin Muller MD - 10/31/2023 6:54 AM EDT Images from the original note were not included. [facility] Medicine Services PROGRESS NOTE Patient Name: Aiden Stauffer Jr. : 1975 Date of Admission: 10/25/2023 Primary Care Physician: Edgar Fournier MD Subjective Subjective CC: AVF infection HPI: Up in bed. Chills and sweats overnight. Nausea. Hoarse. Objective Objective Vital Signs: Temp: [98.1 ??F (36.7 ??C)-99.7 ??F (37.6 ??C)] 99.7 ??F (37.6 ??C) Heart Rate: [73-88] 88 Resp: [16-18] 18 BP: (89-157)/(55-94) 152/77 Flow (L/min): [4] 4 Physical Exam: NAD, alert and oriented OP clear, dry MM Neck supple No LAD RRR CTAB +BS, soft HILTON L forearm AVF R tunneled catheter in place Results Reviewed: LAB RESULTS: Lab 10/31/23 0504 10/30/23 0418 10/29/23 0503 10/28/23 0439 10/27/23 0500 10/26/23 0703 10/26/23 0033 WBC 4.16 5.35 7.31 5.50 4.56 < > 5.33 HEMOGLOBIN 10.5* 9.6* 11.2* 10.8* 11.3* < > 11.3* HEMATOCRIT 34.5* 32.4* 35.4* 34.9* 36.3* < > 35.7* PLATELETS 203 198 220 217 233 < > 250 NEUTROS ABS 1.90 3.08 5.44 3.14 2.61 < > 3.38 IMMATURE GRANS (ABS) 0.16* 0.20* 0.15* 0.16* 0.13* < > 0.19* LYMPHS ABS 1.08 0.99 0.58* 1.21 1.04 < > 1.09 MONOS ABS 0.76 0.90 0.82 0.63 0.53 < > 0.46 EOS ABS 0.23 0.15 0.29 0.33 0.23 < > 0.18 MCV 101.8* 108.4* 102.6* 101.7* 102.0* < > 99.7* PROCALCITONIN -- -- -- -- -- -- 0.44* LACTATE -- -- -- -- -- -- 0.7 PROTIME -- -- -- -- -- -- 14.2 APTT -- -- -- -- -- -- 29.0* < > = values in this interval not displayed. Lab 10/31/23 0504 10/30/23 0418 10/29/23 0503 10/28/23 0439 10/27/23 0500 10/26/23 0703 10/26/23 0033 SODIUM 131* 132* 132* 133* 134* < > 142 POTASSIUM 4.5 5.7* 4.6 4.3 5.0 < > 5.8* CHLORIDE 94* 92* 91* 94* 95* < > 102 CO2 20.0* 19.0* 19.0* 23.0 27.0 < > 22.0 ANION GAP 17.0* 21.0* 22.0* 16.0* 12.0 < > 18.0* BUN 39* 55* 35* 23* 41* < > 60* CREATININE 7.99* 10.39* 7.90* 5.33* 6.81* < > 9.74* EGFR 7.6* 5.6* 7.7* 12.4* 9.2* < > 6.0* GLUCOSE 140* 99 164* 139* 173* < > 104* CALCIUM 8.7 8.1* 8.8 9.2 9.0 < > 8.8 MAGNESIUM -- -- -- -- -- -- 1.9 < > = values in this interval not displayed. Lab 10/27/23 0500 10/26/23 0703 10/26/23 0033 TOTAL PROTEIN 6.5 7.4 7.0 ALBUMIN 4.1 4.2 4.2 GLOBULIN 2.4 3.2 2.8 ALT (SGPT) 8 8 8 AST (SGOT) 12 12 14 BILIRUBIN 0.4 0.3 0.3 ALK PHOS 129* 133* 134* Lab 10/26/23 0033 PROTIME 14.2 INR 1.08 Brief Urine Lab Results None Microbiology Results Abnormal Procedure Component Value - Date/Time Blood Culture - Blood, Hand, Right [[id number]] (Normal) Collected: 10/28/23 1342 Lab Status: Preliminary result Specimen: Blood from Hand, Right Updated: 10/30/23 1500 Blood Culture No growth at 2 days Blood Culture - Blood, Arm, Right [[id number]] (Normal) Collected: 10/28/23 1342 Lab Status: Preliminary result Specimen: Blood from Arm, Right Updated: 10/30/23 1500 Blood Culture No growth at 2 days Blood Culture ID, PCR - Blood, Arm, Right [[id number]] Collected: 10/26/23 0500 Lab Status: Final result Specimen: Blood from Arm, Right Updated: 10/27/23 1658 BCID, PCR Negative by BCID PCR. Culture to Follow. BOTTLE TYPE Anaerobic Bottle MRSA Screen, PCR (Inpatient) - Swab, Nares [[id number]] (Normal) Collected: 10/26/23 0515 Lab Status: Final result Specimen: Swab from Nares Updated: 10/26/23 0958 MRSA PCR Negative Narrative: The negative predictive value of this diagnostic test is high and should only be used to consider de-escalating anti-MRSA therapy. A positive result may indicate colonization with MRSA and must be correlated clinically. 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 Swab in UTM/VTM, 2 HR TAT - Swab, Nasopharynx [[id number]] (Normal) Collected: 10/26/23 0515 Lab Status: Final result Specimen: Swab from Nasopharynx Updated: 10/26/23 06 ADENOVIRUS, PCR Not Detected Coronavirus 229E Not Detected Coronavirus HKU1 Not Detected Coronavirus NL63 Not Detected Coronavirus OC43 Not Detected COVID19 Not Detected Human Metapneumovirus Not Detected Human Rhinovirus/Enterovirus Not Detected Influenza A PCR Not Detected Influenza B PCR Not Detected Parainfluenza Virus 1 Not Detected Parainfluenza Virus 2 Not Detected Parainfluenza Virus 3 Not Detected Parainfluenza Virus 4 Not Detected RSV, PCR Not Detected Bordetella pertussis pcr Not Detected Bordetella parapertussis PCR Not Detected Chlamydophila pneumoniae PCR Not Detected Mycoplasma pneumo by PCR Not Detected Narrative: In the setting of a positive respiratory panel with a viral infection PLUS a negative procalcitoninwithout other underlying concern for bacterial infection, consider observing off antibiotics or discontinuation of antibiotics and continue supportive care. If the respiratory panel is positive for atypical bacterial infection (Bordetella pertussis, Chlamydophila pneumoniae, or Mycoplasma pneumoniae), consider antibiotic de-escalation to target atypical bacterial infection. No radiology results from the last 24 hrs Current medications: Scheduled Meds:[START ON 11/02/2023] entecavir, 0.5 mg, Oral, Weekly albumin human, , , aspirin, 81 mg, Oral, Daily calcitriol, 0.25 mcg, Oral, Daily carBAMazepine, 200 mg, Oral, Nightly carvedilol, 25 mg, Oral, BID With Meals cefTRIAXone, 2,000 mg, Intravenous, Q24H cinacalcet, 90 mg, Oral, Nightly cycloSPORINE modified, 100 mg, Oral, BID fenofibrate, 145 mg, Oral, Daily folic acid, 1,000 mcg, Oral, Daily gabapentin, 300 mg, Oral, Nightly guaiFENesin, 1,200 mg, Oral, Q12H hydrALAZINE, 100 mg, Oral, TID insulin lispro, 2-7 Units, Subcutaneous, 4x Daily AC & at Bedtime mycophenolate, 250 mg, Oral, Q12H NIFEdipine XL, 90 mg, Oral, BID pantoprazole, 40 mg, Oral, Q AM sodium chloride, 10 mL, Intravenous, Q12H Continuous Infusions: PRN Meds:. acetaminophen albumin human albumin human ALPRAZolam senna-docusate sodium AND polyethylene glycol AND bisacodyl AND bisacodyl dextrose dextrose diphenhydrAMINE glucagon (human recombinant) heparin (porcine) HYDROmorphone melatonin naloxone ondansetron oxyCODONE-acetaminophen promethazine OR promethazine [COMPLETED] Insert Peripheral IV AND sodium chloride sodium chloride sodium chloride Assessment & Plan Assessment & Plan Active Hospital Problems Diagnosis POA Arm pain [M79.603] Yes Pneumonia [J18.9] Yes KIM (nonalcoholic steatohepatitis) [K75.81] Yes History of liver transplant [Z94.4] Not Applicable Immunosuppression [D84.9] Yes Type 2 diabetes mellitus [E11.9] Yes ESRD (end stage renal disease) [N18.6] Yes Resolved Hospital Problems No resolved problems to display. Brief Hospital Course to date: Aiden Stauffer Jr. is a 48 y.o. 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 Gruber, who presented for evaluation of worsening pain and swelling and AV fistula graft over the past 48 hours. Also found to have right lower lobe pneumonia. ESRD on HD Malfunctioning AVF with concern for possible infected graft Gram Positive Bacteremia -nephrology following, continue HD per nephrology -Dr. Gruber took for AVF ligation 10/26 -blood cultures reviewed -continue IV Abx per ID -R chest HD catheter out -ECHO per ID RLL Pneumonia -resp PCR negative, blood cultures negative -continue ABX per above -as needed pulmonary toilet, added mucinex -will need to follow-up for resolution with repeat imaging outpatient History of KIM cirrhosis s/p liver transplant -continue antirejection meds: CellCept, mycophenolate -has been on entecavir, took last on 10/24 and takes weekly -follows at for transplant -CT abd/pelvis with no acute abnormality T2DM - SSI H/o discitis/epidural abscess (2019) -s/p laminectomy and I&D of abscess by Dr. Garnica. Followed by ID/Dr. Rodriguez for his complete course of ABX JC -CPAP Anemia- -monitor hemoglobin Morbid obesity -complicates all aspects of care Expected Discharge Location and Transportation: Home Expected Discharge Expected Discharge Date: 10/30/2023; Expected Discharge Time: DVT prophylaxis: Medical and mechanical DVT prophylaxis orders are present. AM-PAC 6 Clicks Score (PT): 24 (10/31/23 0200) CODE STATUS: Code Status and Medical Interventions: Ordered at: 10/26/23 0356 Level Of Support Discussed With: Patient Code Status (Patient has no pulse and is not breathing): CPR (Attempt to Resuscitate) Medical Interventions (Patient has pulse or is breathing): Full Support Kevin Muller MD 10/31/23 * Scar Richardson MD - 10/30/2023 3:41 PM EDT Images from the original note were not included. . INFECTIOUS DISEASE PROGRESS NOTE Aiden Stauffer . 1975 [id number] Date of Consult: 10/27/2023 Admission Date: 10/25/2023 Requesting Provider: Michelle Shore DO Evaluating Physician: Scar Richardson MD Reason for Consultation: Infected AVF, immunocompromised patient. History of present illness: Patient is a 48 y.o. male with h/o T2DM, ESRD/HD/temporary dialysis cath 08/11/23/LUE AVF malfunctioning since 08/10/23, morbid obesity, KIM liver cirrhosis s/p liver transplant 2017 on chronic immunosuppression with Cyclosporine and CellCept/Hep B liver/on Entecavir, on and discitis/epidural abscess/laminectomy/I and D 2019 (treated by Dr. Cayetano Rodriguez) who was admitted to [facility] on 10/24 for pain at LUE AVF site that has been ongoing for 4 months. 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 He was treated with Zosyn and Vancomycin.He was discharged home on oral cefuroxime and oral doxycycline for 4 days. He returned to [facility] ED on 10/24 for worsening pain, swelling, and redness at LUE AVF site. He was scheduled for a revision by Dr. Grubre. He was afebrile with intermittent hypertension. He remains on room air. Initial labs were WBC 5300 with 67% segs, PCT 0.44, lactic acid 0.7, creatinine 9.74, and K 5.8. A respiratory panel PCR was negative. A MRSA PCR was negative. Blood cultures are negative todate. A CXR on 10/25/23 showed RLL pneumonia although not extremely impressive. He is currently on Zosyn and Vancomycin. ID was asked to evaluate and manage his antibiotic therapy. 10/28/23: Blood cultures positive for GPC in pairs/chains with BCID PCR negative. MRSA screen negative. Tmax 99.8. Patient denies any worsening cough. He denies f/c, v/d, rashes. He has chronic nausea. He states the dialysis catheter has had some bumps around the insertion site. 10/29/23: Afebrile. Blood culture with GPC ID/S pending. Repeat blood cultures pending. He continuesto have chronic nausea. He denies f/c, soa, v/d, rashes. He is worried about the dialysis catheter and feels it should be removed. 10/30/23: Tmax 100.2, now afebrile. Blood culture with GPC with and ID that was an odd species, reno is rerunning the culture and if it remains an odd result, then it will be sent to a referencelab. The patient is awaiting dialysis cath removal and placement of new line. He denies any worsening left arm pain. He denies soa, n/v/d, rashes. Past Medical History: Diagnosis Date Diabetes mellitus Dialysis patient Hemorrhage THROAT VARICIES Kidney failure Liver transplanted Past Surgical History: Procedure Laterality Date ARTERIOVENOUS FISTULA Left 2019 ARTERIOVENOUS FISTULA/SHUNT SURGERY Left 10/27/2023 Procedure: ARTERIOVENOUS FISTULA LIGATION LEFT; Surgeon: Dontae Gruber MD; Location: [facility]; Service: Vascular; Laterality: Left; CARDIAC CATHETERIZATION times 2022 CHOLECYSTECTOMY ENDOSCOPY N/A 05/04/2020 Procedure: ESOPHAGOGASTRODUODENOSCOPY; Surgeon: Dewey Betancourt MD; Location: [facility]; Service: Gastroenterology; Laterality: N/A; LUMBAR LAMINECTOMY DISCECTOMY DECOMPRESSION N/A 04/29/2020 Procedure: LUMBAR LAMINECTOMY DISCECTOMY DECOMPRESSION POSTERIOR L4-5; Surgeon: Yinka Garnica MD; Location: COUNTS INCLUDE 234 BEDS AT THE [facility]; Service: Neurosurgery; Laterality: N/A; History reviewed. No pertinent family history. Social History Socioeconomic History Marital status: Tobacco Use Smoking status: Never Passive exposure: Never Smokeless tobacco: Never Vaping Use Vaping status: Never Used Substance and Sexual Activity Alcohol use: Never Drug use: Never Sexual activity: Defer Allergies Allergen Reactions Tacrolimus Other (See Comments) and Unknown - High Severity Anxious feeling and muscle jerking. TOLERATED ENVARSUS BETTER THAN PROGRAF. Codeine Anxiety and Unknown - Low Severity Calcitriol GI Intolerance Medication: Current Facility-Administered Medications: [START ON 11/02/2023] *Patient Supplied* entecavir (BARACLUDE) tablet 0.5 mg, 0.5 mg, Oral, Weekly, Dontae Gruber MD acetaminophen (TYLENOL) tablet 650 mg, 650 mg, Oral, Q4H PRN, Dontae Gruber MD, 650 mg at10/27/23 1329 albumin human 25 % IV SOLN - ADS Override Pull, , , , albumin human 25 % IV SOLN 12.5 g, 12.5 g, Intravenous, PRN, Mark Edwards MD ALPRAZolam (XANAX) tablet 0.5 mg, 0.5 mg, Oral, Daily PRN, Dontae Gruber MD, 0.5 mg at 10/30/23 0716 aspirin chewable tablet 81 mg, 81 mg, Oral, Daily, Dontae Gruber MD, 81 mg at 10/30/23 1208 sennosides-docusate (PERICOLACE) 8.6-50 MG per tablet 2 tablet, 2 tablet, Oral, BID PRN AND polyethylene glycol (MIRALAX) packet 17 g, 17 g, Oral, Daily PRN AND bisacodyl (DULCOLAX) EC tablet5 mg, 5 mg, Oral, Daily PRN AND bisacodyl (DULCOLAX) suppository 10 mg, 10 mg, Rectal, Daily PRN, Dontae Gruber MD calcitriol (ROCALTROL) capsule 0.25 mcg, 0.25 mcg, Oral, Daily, Dontae Gruber MD, 0.25 mcg at 10/30/23 1208 carBAMazepine (TEGretol) tablet 200 mg, 200 mg, Oral, Nightly, Dontae Gruber MD, 200 mg at 10/29/232116 carvedilol (COREG) tablet 25 mg, 25 mg, Oral, BID With Meals, Dontae Gruber MD, 25 mg at 10/29/23 171 cinacalcet (SENSIPAR) tablet 90 mg, 90 mg, Oral, Nightly, Dontae Gruber MD, 90 mg at 10/29/232117 cycloSPORINE modified (NEORAL) capsule 100 mg, 100 mg, Oral, BID, Dontae Gruber MD, 100 mg at 10/30/23 120 dextrose (D50W) (25 g/50 mL) IV injection 25 g, 25 g, Intravenous, Q15 Min PRN, Dontae Gruber MD dextrose (GLUTOSE) oral gel 15 g, 15 g, Oral, Q15 Min PRN, Dontae Gruber MD diphenhydrAMINE (BENADRYL) capsule 25 mg, 25 mg, Oral, Q6H PRN, Michelle Shore, DO, 25 mg at 10/30/23 1529 fenofibrate (TRICOR) tablet 145 mg, 145 mg, Oral, Daily, Dontae Gruber MD, 145 mg at 10/30/23 1210 folic acid (FOLVITE) tablet 1,000 mcg, 1,000 mcg, Oral, Daily, Dontae Gruber MD, 1,000 mcg at 10/30/23 120 gabapentin (NEURONTIN) capsule 300 mg, 300 mg, Oral, Nightly, Dontae Gruber MD, 300 mg at10/29/232115 glucagon (GLUCAGEN) injection 1 mg, 1 mg, Intramuscular, Q15 Min PRN, Dontae Gruber MD guaiFENesin (MUCINEX) 12 hr tablet 1,200 mg, 1,200 mg, Oral, Q12H, Michelle Shore, DO, 1,200 mg at 10/30/23 120 heparin (porcine) injection 2,000 Units, 2,000 Units, Intracatheter, PRN, Dontae Gruber MD, 2,000 Units at 10/26/23 1357 hydrALAZINE (APRESOLINE) tablet 100 mg, 100 mg, Oral, TID, Dontae Gruber MD, 100 mg at 10/30/23 0459 HYDROmorphone (DILAUDID) injection 0.5 mg, 0.5 mg, Intravenous, Q4H PRN, Michelle Shore DO, 0.5mg at 10/30/23 1207 Insulin Lispro (humaLOG) injection 2-7 Units, 2-7 Units, Subcutaneous, 4x Daily AC & at Bedtime, Dontae Gruber MD, 3 Units at 10/29/23 1717 melatonin tablet 5 mg, 5 mg, Oral, Nightly PRN, Dontae Gruber MD mycophenolate (CELLCEPT) capsule 250 mg, 250 mg, Oral, Q12H, Dontae Gruber MD, 250 mg at 10/30/23 1212 naloxone (NARCAN) injection 0.4 mg, 0.4 mg, Intravenous, PRN, Dontae Gruber MD NIFEdipine XL (PROCARDIA XL) 24 hr tablet 90 mg, 90 mg, Oral, BID, Dontae Gruber MD, 90 mg at 10/29/23 2116 ondansetron (ZOFRAN) injection 4 mg, 4 mg, Intravenous, Q6H PRN, Dontae Gruber MD, 4 mg at 10/29/23 0420 oxyCODONE-acetaminophen (PERCOCET) 5-325 MG per tablet 1 tablet, 1 tablet, Oral, Q4H PRN, Michelle Shore DO, 1 tablet at 10/30/23 1327 pantoprazole (PROTONIX) EC tablet 40 mg, 40 mg, Oral, Q AM, Dontae Gruber MD, 40 mg at 10/30/23 0459 Pharmacy to dose vancomycin, , Does not apply, Continuous PRN, Dontae Gruber MD piperacillin-tazobactam (ZOSYN) 4.5 g IVPB in 100 mL NS MBP (CD), 4.5 g, Intravenous, Q12H, Dontae Gruber MD, 4.5 g at 10/30/23 0500 promethazine (PHENERGAN) tablet 12.5 mg, 12.5 mg, Oral, Q6H PRN, 12.5 mg at 10/27/23 2250 OR promethazine (PHENERGAN) suppository 12.5 mg, 12.5 mg, Rectal, Q6H PRN, Dontae Gruber MD [COMPLETED] Insert Peripheral IV, , , Once AND sodium chloride 0.9 % flush 10 mL, 10 mL, Intravenous, PRN, Dontae Gruber MD sodium chloride 0.9 % flush 10 mL, 10 mL, Intravenous, Q12H, Dontae Gruber MD, 10 mL at 10/30/23 1211 sodium chloride 0.9 % flush 10 mL, 10 mL, Intravenous, PRN, Dontae Gruber MD sodium chloride 0.9 % infusion 40 mL, 40 mL, Intravenous, PRN, Dontae Gruber MD vancomycin (dosing per levels), , Does not apply, Daily, Dontae Gruber MD Antibiotics: Anti-Infectives (From admission, onward) Ordered Dose/Rate Route Frequency Start Stop 10/26/23 1215 *Patient Supplied* entecavir (BARACLUDE) tablet 0.5 mg Ordering Provider: Dontae Gruber MD 0.5 mg Oral Weekly 11/02/23 0900 10/27/23 1531 vancomycin IVPB 2000 mg in 0.9% Sodium Chloride 500 mL Ordering Provider: Dontae Gruber MD 15 mg/kg ?? 136 kg 250 mL/hr over 120 Minutes Intravenous Once 10/27/23 2100 10/27/23 2300 10/26/23 0519 vancomycin (dosing per levels) Ordering Provider: Dontae Gruber MD Does not apply Daily 10/27/23 0900 10/31/23 0859 10/26/23 0356 piperacillin-tazobactam (ZOSYN) 4.5 g IVPB in 100 mL NS MBP (CD) Ordering Provider: Dontae Gruber MD 4.5 g over 4 Hours Intravenous Every 12 Hours 10/26/23 1600 10/31/23 0359 10/26/23 0356 piperacillin-tazobactam (ZOSYN) 4.5 g IVPB in 100 mL NS MBP (CD) Ordering Provider: Beulah Fleming DO 4.5 g over 30 Minutes Intravenous Once 10/26/23 0410 10/26/23 0641 10/26/23 0350 Pharmacy to dose vancomycin Ordering Provider: Dontae Gruber MD Does not apply Continuous PRN 10/26/23 0349 10/31/23 0348 10/26/23 0305 vancomycin 2750 mg/500 mL 0.9% NS IVPB ([facility]) Ordering Provider: Terry Burgess MD 20 mg/kg ?? 136 kg over 165 Minutes Intravenous Once 10/26/23 0321 10/26/23 0941 Review of Systems: See above. Physical Exam: Vital Signs Temp (24hrs), Av.2 ??F (37.3 ??C), Min:98.1 ??F (36.7 ??C), Max:100.2 ??F (37.9 ??C) Temp Min: 98.1 ??F (36.7 ??C) Max: 100.2 ??F (37.9 ??C) BP Min: 89/55 Max: 146/65 Pulse Min: 73 Max: 99 Resp Min: 18 Max: 20 SpO2 Min: 87 % Max: 100 % GENERAL: Awake and alert, in no acute distress. HEENT:EOMI. No conjunctival injection. No icterus. Oropharynx clear without evidence of thrush or exudate. HEART: RRR; No murmur. LUNGS: Clear to auscultation bilaterally without wheezing. Normal respiratory effort ABDOMEN: Soft, nontender, EXT: No edema. No cord. Left forearm AVF site with erythema, warmth, some tenderness/wrapped. : Without Anders catheter. MSK: No joint effusions or erythema SKIN: Warm and dry without cutaneous eruptions on Inspection/palpation. NEURO: Oriented to PPT. Motor 5/5 strength PSYCHIATRIC: Normal insight and judgment. Cooperative with PE Dialysis catheter with lesions around the insertion site with possible infection of sutures. Laboratory Data Results from last 7 days Lab Units 10/30/23 0418 10/29/23 0503 10/28/23 0439 WBC 10*3/mm3 5.35 7.31 5.50 HEMOGLOBIN g/dL 9.6* 11.2* 10.8* HEMATOCRIT % 32.4* 35.4* 34.9* PLATELETS 10*3/mm3 198 220 217 Results from last 7 days Lab Units 10/30/23 0418 SODIUM mmol/L 132* POTASSIUM mmol/L 5.7* CHLORIDE mmol/L 92* CO2 mmol/L 19.0* BUN mg/dL 55* CREATININE mg/dL 10.39* GLUCOSE mg/dL 99 CALCIUM mg/dL 8.1* Results from last 7 days Lab Units 10/27/23 0500 ALK PHOS U/L 129* BILIRUBIN mg/dL 0.4 ALT (SGPT) U/L 8 AST (SGOT) U/L 12 Results from last 7 days Lab Units 10/26/23 0033 LACTATE mmol/L 0.7 Results from last 7 days Lab Units 10/30/23 0418 10/27/23 0500 VANCOMYCIN RM mcg/mL 22.60 7.70 Estimated Creatinine Clearance: 11.8 mL/min (A) (by C-G formula based on SCr of 10.39 mg/dL (H)). Microbiology: Microbiology Results (last 10 days) Procedure Component Value - Date/Time Blood Culture - Blood, Hand, Right [[id number]] (Normal) Collected: 10/28/23 134 Lab Status: Preliminary result Specimen: Blood from Hand, Right Updated: 10/30/23 1500 Blood Culture No growth at 2 days Blood Culture - Blood, Arm, Right [[id number]] (Normal) Collected: 10/28/23 1342 Lab Status: Preliminary result Specimen: Blood from Arm, Right Updated: 10/30/23 1500 Blood Culture No growth at 2 days Blood Culture - Blood, Hand, Right [[id number]] (Abnormal) Collected: 10/26/23 0536 Lab Status: Preliminary result Specimen: Blood from Hand, Right Updated: 10/30/23 0629 Blood Culture Gram Positive Cocci Isolated from -- Gram Stain Aerobic Bottle Gram positive cocci in pairs and chains Narrative: Less than seven (7) mL's of blood was collected. Insufficient quantity may yield false negative results. 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 Swab in UTM/MOM, 2 HR TAT - Swab, Nasopharynx [[id number]] (Normal) Collected: 10/26/23514 Lab Status: Final result Specimen: Swab from Nasopharynx Updated: 10/26/23 0620 ADENOVIRUS, PCR Not Detected Coronavirus 229E Not Detected Coronavirus HKU1 Not Detected Coronavirus NL63 Not Detected Coronavirus OC43 Not Detected COVID19 Not Detected Human Metapneumovirus Not Detected Human Rhinovirus/Enterovirus Not Detected Influenza A PCR Not Detected Influenza B PCR Not Detected Parainfluenza Virus 1 Not Detected Parainfluenza Virus 2 Not Detected Parainfluenza Virus 3 Not Detected Parainfluenza Virus 4 Not Detected RSV, PCR Not Detected Bordetella pertussis pcr Not Detected Bordetella parapertussis PCR Not Detected Chlamydophila pneumoniae PCR Not Detected Mycoplasma pneumo by PCR Not Detected Narrative: In the setting of a positive respiratory panel with a viral infection PLUS a negative procalcitoninwithout other underlying concern for bacterial infection, consider observing off antibiotics or discontinuation of antibiotics and continue supportive care. If the respiratory panel is positive for atypical bacterial infection (Bordetella pertussis, Chlamydophila pneumoniae, or Mycoplasma pneumoniae), consider antibiotic de-escalation to target atypical bacterial infection. MRSA Screen, PCR (Inpatient) - Swab, Nares [[id number]] (Normal) Collected: 10/26/23514 Lab Status: Final result Specimen: Swab from Nares Updated: 10/26/23 0958 MRSA PCR Negative Narrative: The negative predictive value of this diagnostic test is high and should only be used to consider de-escalating anti-MRSA therapy. A positive result may indicate colonization with MRSA and must be correlated clinically. MRSA Negative Blood Culture - Blood, Arm, Right [[id number]] (Abnormal) Collected: 10/26/23 0500 Lab Status: Preliminary result Specimen: Blood from Arm, Right Updated: 10/30/23 0617 Blood Culture Gram Positive Cocci Isolated from -- Gram Stain Anaerobic Bottle Gram positive cocci in pairs and chains Narrative: Less than seven (7) mL's of blood was collected. Insufficient quantity may yield false negative results. Blood Culture ID, PCR - Blood, Arm, Right [[id number]] Collected: 10/26/23 0500 Lab Status: Final result Specimen: Blood from Arm, Right Updated: 10/27/23 1658 BCID, PCR Negative by BCID PCR. Culture to Follow. BOTTLE TYPE Anaerobic Bottle Radiology: Imaging Results (Last 72 Hours) Procedure Component Value Units Date/Time CT Abdomen Pelvis Without Contrast [[id number]] Collected: 10/27/232101 Updated: 10/27/232110 Narrative: CT ABDOMEN PELVIS WO CONTRAST Date of Exam: 10/27/2023 5:56 PM EDT Indication: RLQ abdominal pain (Age >= 14y) hx of liver transplant. Comparison: CT abdomen pelvis 04/28/2020 Technique: Axial CT images were obtained of the abdomen and pelvis without the administration of contrast. Reconstructed coronal and sagittal images were also obtained. Automated exposure control anditerative construction methods were used. Findings: Lung bases without consolidation. No pericardial or pleural effusion. Coronary calcifications present. Small hiatal hernia. Lack of contrast limits assessment of abdominal organs and vasculature. Liver transplant. The liverand spleen are normal in size and contour. Normal adrenal glands. Gallbladder absent. Increased without findings of pancreatitis. Kidneys are atrophic. Negative for hydronephrosis or hydroureter. Wall thickening of bladder which may relate to underdistention. Prostate mildly enlarged. Negative for pneumoperitoneum. No bowel obstruction. Normal appendix. There are several ventral abdominal hernias for example small fat-containing upper abdominal ventral hernia (2/44). Large midlineventral hernia which contains nonobstructed small bowel loop above the umbilicus. Abdominal aorta without aneurysm. No fluid collection in the abdomen or pelvis. Advanced disc disease at L4-5 with endplate sclerosis. Laminectomy defect at L4. Chronic L4 pars defects. Sacralized L5 vertebral body. Negative for acute fracture. Impression: Impression: 1. No acute abnormality in the abdomen or pelvis. 2. Normal appendix. 3. Wall thickening of bladder may relate to underdistention, correlate with urinalysis to exclude cystitis. 4. Midline ventral hernia containing nonobstructed small bowel loops. 5. Additional chronic findings above. Electronically Signed: Massimo Burns MD 10/27/2023 9:08 PM EDT Workstation ID: [id number] Impression: - Left upper extremity atriovenous graft infection. Awaiting revision on 10/26. Blood cultures negative to date. 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 - Morbid obesity - End Stage renal disease/HD by dialysis catheter/left UE AVF malfunctioning and infected. - Type 2 diabetes mellitus - gram positive bacteremia--likely streptococcus/enterococcus. Concerning for dialysis line infection vs AVF as source. PLAN/RECOMMENDATIONS: Thank you for asking us to see Aiden Staufefr Jr., I recommend the following: - Follow blood cultures--GPC, ID/S pending. Colonies still too tiny to evaluate on plate per micro.They are rerunning the microscan. - Discontinue Zosyn and Vancomycin - Start Rocephin 2 GM IV daily - Continue LUE wound care per Dr. Gruber - Awaiting IR removal of current dialysis catheter and placement of new catheter. - Consider TTE to r/o endocarditis--not ordered yet. - Repeat blood cultures--NGTD . We are assuming AVF was source of bacteremia; however, the patient also has 4 month old HD catheterwhich should be removed. Scar Richardson MD saw and examined patient, verified hx and PE, reviewed labs and micro data, and formulated dx, plan for treatment and all medical decision making. Giancarlo Valderrama PA-C for Scar Richardson MD I have seen and examined patient and agree with above NAVNEET Ruvalcaba 10/30/2023 15:41 EDT * Genevieve Vaughn [facility] - 10/30/2023 2:15 PM EDT Images from the original note were not included. Pharmacy Consult-Vancomycin Dosing Aiden Stauffer Jr. is a 48 y.o. male receiving vancomycin therapy. Mr. Stauffer has ESRD and is on hemodialysis Indication: SSTI Consulting Provider: hospitalist ID Consult: No Goal Trough: 10-15 Current Antimicrobial Therapy Anti-Infectives (From admission, onward) Ordered Dose/Rate Route Frequency Start Stop 10/26/23 1215 *Patient Supplied* entecavir (BARACLUDE) tablet 0.5 mg Ordering Provider: Dontae Gruber MD 0.5 mg Oral Weekly 11/02/23 0900 10/27/23 1531 vancomycin IVPB 2000 mg in 0.9% Sodium Chloride 500 mL Ordering Provider: Dontae Gruber MD 15 mg/kg ?? 136 kg 250 mL/hr over 120 Minutes Intravenous Once 10/27/23 2100 10/27/23 2300 10/26/23 0519 vancomycin (dosing per levels) Ordering Provider: Dontae Gruber MD Does not apply Daily 10/27/23 0900 10/31/23 0859 10/26/23 0356 piperacillin-tazobactam (ZOSYN) 4.5 g IVPB in 100 mL NS MBP (CD) Ordering Provider: Dontae Gruber MD 4.5 g over 4 Hours Intravenous Every 12 Hours 10/26/23 1600 10/31/23 0359 10/26/23 0356 piperacillin-tazobactam (ZOSYN) 4.5 g IVPB in 100 mL NS MBP (CD) Ordering Provider: Beulah Fleming DO 4.5 g over 30 Minutes Intravenous Once 10/26/23 0410 10/26/23 0641 10/26/23 0350 Pharmacy to dose vancomycin Ordering Provider: Dontae Gruber MD Does not apply Continuous PRN 10/26/23 0349 10/31/23 0348 10/26/23 0305 vancomycin 2750 mg/500 mL 0.9% NS IVPB ([facility]) Ordering Provider: Terry Burgess MD 20 mg/kg ?? 136 kg over 165 Minutes Intravenous Once 10/26/23 0321 10/26/23 0941 Allergies Allergies as of 10/25/2023 - Reviewed 10/25/2023 Allergen Reaction Noted Tacrolimus Other (See Comments) and Unknown - High Severity 03/02/2021 Codeine Anxiety and Unknown - Low Severity 06/02/2014 Calcitriol GI Intolerance 09/20/2023 Labs Results from last 7 days Lab Units 10/29/23 0503 10/28/23 0439 10/27/23 0500 BUN mg/dL 35* 23* 41* CREATININE mg/dL 7.90* 5.33* 6.81* Results from last 7 days Lab Units 10/29/23 0503 10/28/23 0439 10/27/23 0500 WBC 10*3/mm3 7.31 5.50 4.56 Evaluation of Dosing Last Dose Received in the ED/Outside Facility: N/A Is Patient on Dialysis or Renal Replacement: No Ht - 175.3 cm (69 ) Wt - 136 kg (300 lb) Estimated Creatinine Clearance: 15.5 mL/min (A) (by C-G formula based on SCr of 7.9 mg/dL (H)). Intake & Output (last 3 days) None Microbiology and Radiology Microbiology Results (last 10 days) Procedure Component Value - Date/Time Blood Culture - Blood, Hand, Right [[id number]] (Normal) Collected: 10/28/23 1342 Lab Status: Preliminary result Specimen: Blood from Hand, Right Updated: 10/29/23 1501 Blood Culture No growth at 24 hours Blood Culture - Blood, Arm, Right [[id number]] (Normal) Collected: 10/28/23 1342 Lab Status: Preliminary result Specimen: Blood from Arm, Right Updated: 10/29/23 1501 Blood Culture No growth at 24 hours Blood Culture - Blood, Hand, Right [[id number]] (Abnormal) Collected: 10/26/23 0536 Lab Status: Preliminary result Specimen: Blood from Hand, Right Updated: 10/29/23 0625 Blood Culture Gram Positive Cocci Isolated from -- Gram Stain Aerobic Bottle Gram positive cocci in pairs and chains Narrative: Less than seven (7) mL's of blood was collected. Insufficient quantity may yield false negative results. 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 Swab in UTM/VTM, 2 HR TAT - Swab, Nasopharynx [[id number]] (Normal) Collected: 10/26/23 0515 Lab Status: Final result Specimen: Swab from Nasopharynx Updated: 10/26/23 0620 ADENOVIRUS, PCR Not Detected Coronavirus 229E Not Detected Coronavirus HKU1 Not Detected Coronavirus NL63 Not Detected Coronavirus OC43 Not Detected COVID19 Not Detected Human Metapneumovirus Not Detected Human Rhinovirus/Enterovirus Not Detected Influenza A PCR Not Detected Influenza B PCR Not Detected Parainfluenza Virus 1 Not Detected Parainfluenza Virus 2 Not Detected Parainfluenza Virus 3 Not Detected Parainfluenza Virus 4 Not Detected RSV, PCR Not Detected Bordetella pertussis pcr Not Detected Bordetella parapertussis PCR Not Detected Chlamydophila pneumoniae PCR Not Detected Mycoplasma pneumo by PCR Not Detected Narrative: In the setting of a positive respiratory panel with a viral infection PLUS a negative procalcitoninwithout other underlying concern for bacterial infection, consider observing off antibiotics or discontinuation of antibiotics and continue supportive care. If the respiratory panel is positive for atypical bacterial infection (Bordetella pertussis, Chlamydophila pneumoniae, or Mycoplasma pneumoniae), consider antibiotic de-escalation to target atypical bacterial infection. MRSA Screen, PCR (Inpatient) - Swab, Nares [[id number]] (Normal) Collected: 10/26/23 0515 Lab Status: Final result Specimen: Swab from Nares Updated: 10/26/23 0958 MRSA PCR Negative Narrative: The negative predictive value of this diagnostic test is high and should only be used to consider de-escalating anti-MRSA therapy. A positive result may indicate colonization with MRSA and must be correlated clinically. MRSA Negative Blood Culture - Blood, Arm, Right [[id number]] (Abnormal) Collected: 10/26/23 0500 Lab Status: Preliminary result Specimen: Blood from Arm, Right Updated: 10/29/23 0624 Blood Culture Gram Positive Cocci Isolated from -- Gram Stain Anaerobic Bottle Gram positive cocci in pairs and chains Narrative: Less than seven (7) mL's of blood was collected. Insufficient quantity may yield false negative results. Blood Culture ID, PCR - Blood, Arm, Right [[id number]] Collected: 10/26/23 0500 Lab Status: Final result Specimen: Blood from Arm, Right Updated: 10/27/23 1658 BCID, PCR Negative by BCID PCR. Culture to Follow. BOTTLE TYPE Anaerobic Bottle Vancomycin Levels: Results from last 7 days Lab Units 10/27/23 0500 VANCOMYCIN RM mcg/mL 7.70 Assessment/Plan: Pharmacy to dose vancomycin for SSTI. Goal AUC is 400-600 Vancomycin random returned supratherapeutic at 22.6 mcg/mL on 10/29 at 0418 prior to HD. Will hold dose today. HD catheter to be removed today after dialysis session. Will plan to obtain another random prior tonext dialysis session once catheter is replaced. Will monitor renal function, culture and sensitivities, and clinical status and adjust regimen as needed. Pharmacy will continue to follow Thanks Genevieve Vaughn PharmD 10/30/2023 14:12 EDT * Michelle Shore, DO - 10/30/2023 10:17 AM EDT Images from the original note were not included. [facility] Medicine Services PROGRESS NOTE Patient Name: Aiden Stauffer Jr. : 1975 Date of Admission: 10/25/2023 Primary Care Physician: Edgar Fournier MD Subjective Subjective CC: F/u pneumona, infection AVF HPI: Patient seen in dialysis, feels okay. Left arm pain is improving. Objective Objective Vital Signs: Temp: [98.1 ??F (36.7 ??C)-100.2 ??F (37.9 ??C)] 98.1 ??F (36.7 ??C) Heart Rate: [77-99] 79 Resp: [18-20] 18 BP: (89-146)/(55-89) 129/58 Flow (L/min): [2-4] 4 Physical Exam: Constitutional: No acute distress, awake, alert, obese male HENT: NCAT, mucous membranes moist Respiratory: Clear to auscultation bilaterally, respiratory effort normal on room air Cardiovascular: RRR, no murmurs, rubs, or gallops Gastrointestinal: soft, nontender, nondistended Musculoskeletal: No bilateral ankle edema Psychiatric: Appropriate affect, cooperative Neurologic: Oriented x 3, speech clear, no focal deficits Skin: No rashes Left forearm AVF with some erythema/swelling, no drainag, overall redness appears to be improving Right chest wall tunneled cath in place Results Reviewed: LAB RESULTS: Lab 10/30/23 0418 10/29/23 0503 10/28/23 0439 10/27/23 0500 10/26/23 0703 10/26/23 0033 WBC 5.35 7.31 5.50 4.56 5.45 5.33 HEMOGLOBIN 9.6* 11.2* 10.8* 11.3* 11.4* 11.3* HEMATOCRIT 32.4* 35.4* 34.9* 36.3* 37.5 35.7* PLATELETS 198 220 217 233 235 250 NEUTROS ABS 3.08 5.44 3.14 2.61 3.29 3.38 IMMATURE GRANS (ABS) 0.20* 0.15* 0.16* 0.13* 0.20* 0.19* LYMPHS ABS 0.99 0.58* 1.21 1.04 1.27 1.09 MONOS ABS 0.90 0.82 0.63 0.53 0.49 0.46 EOS ABS 0.15 0.29 0.33 0.23 0.17 0.18 MCV 108.4* 102.6* 101.7* 102.0* 103.6* 99.7* PROCALCITONIN -- -- -- -- -- 0.44* LACTATE -- -- -- -- -- 0.7 PROTIME -- -- -- -- -- 14.2 APTT -- -- -- -- -- 29.0* Lab 10/30/23 0418 10/29/23 0503 10/28/23 0439 10/27/23 0500 10/26/23 1423 10/26/23 0703 10/26/23 0033 SODIUM 132* 132* 133* 134* -- 141 142 POTASSIUM 5.7* 4.6 4.3 5.0 4.5 5.4* 5.8* CHLORIDE 92* 91* 94* 95* -- 102 102 CO2 19.0* 19.0* 23.0 27.0 -- 21.0* 22.0 ANION GAP 21.0* 22.0* 16.0* 12.0 -- 18.0* 18.0* BUN 55* 35* 23* 41* -- 62* 60* CREATININE 10.39* 7.90* 5.33* 6.81* -- 10.13* 9.74* EGFR 5.6* 7.7* 12.4* 9.2* -- 5.7* 6.0* GLUCOSE 99 164* 139* 173* -- 99 104* CALCIUM 8.1* 8.8 9.2 9.0 -- 9.2 8.8 MAGNESIUM -- -- -- -- -- -- 1.9 Lab 10/27/23 0500 10/26/23 0703 10/26/23 0033 TOTAL PROTEIN 6.5 7.4 7.0 ALBUMIN 4.1 4.2 4.2 GLOBULIN 2.4 3.2 2.8 ALT (SGPT) 8 8 8 AST (SGOT) 12 12 14 BILIRUBIN 0.4 0.3 0.3 ALK PHOS 129* 133* 134* Lab 10/26/23 0033 PROTIME 14.2 INR 1.08 Brief Urine Lab Results None Microbiology Results Abnormal Procedure Component Value - Date/Time Blood Culture - Blood, Hand, Right [[id number]] (Normal) Collected: 10/28/23 1342 Lab Status: Preliminary result Specimen: Blood from Hand, Right Updated: 10/29/23 1501 Blood Culture No growth at 24 hours Blood Culture - Blood, Arm, Right [[id number]] (Normal) Collected: 10/28/23 1342 Lab Status: Preliminary result Specimen: Blood from Arm, Right Updated: 10/29/23 1501 Blood Culture No growth at 24 hours Blood Culture ID, PCR - Blood, Arm, Right [[id number]] Collected: 10/26/23 0500 Lab Status: Final result Specimen: Blood from Arm, Right Updated: 10/27/23 1658 BCID, PCR Negative by BCID PCR. Culture to Follow. BOTTLE TYPE Anaerobic Bottle MRSA Screen, PCR (Inpatient) - Swab, Nares [[id number]] (Normal) Collected: 10/26/23 0515 Lab Status: Final result Specimen: Swab from Nares Updated: 10/26/23 0958 MRSA PCR Negative Narrative: The negative predictive value of this diagnostic test is high and should only be used to consider de-escalating anti-MRSA therapy. A positive result may indicate colonization with MRSA and must be correlated clinically. 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 Swab in UTM/VTM, 2 HR TAT - Swab, Nasopharynx [[id number]] (Normal) Collected: 10/26/23 0515 Lab Status: Final result Specimen: Swab from Nasopharynx Updated: 10/26/23 0620 ADENOVIRUS, PCR Not Detected Coronavirus 229E Not Detected Coronavirus HKU1 Not Detected Coronavirus NL63 Not Detected Coronavirus OC43 Not Detected COVID19 Not Detected Human Metapneumovirus Not Detected Human Rhinovirus/Enterovirus Not Detected Influenza A PCR Not Detected Influenza B PCR Not Detected Parainfluenza Virus 1 Not Detected Parainfluenza Virus 2 Not Detected Parainfluenza Virus 3 Not Detected Parainfluenza Virus 4 Not Detected RSV, PCR Not Detected Bordetella pertussis pcr Not Detected Bordetella parapertussis PCR Not Detected Chlamydophila pneumoniae PCR Not Detected Mycoplasma pneumo by PCR Not Detected Narrative: In the setting of a positive respiratory panel with a viral infection PLUS a negative procalcitoninwithout other underlying concern for bacterial infection, consider observing off antibiotics or discontinuation of antibiotics and continue supportive care. If the respiratory panel is positive for atypical bacterial infection (Bordetella pertussis, Chlamydophila pneumoniae, or Mycoplasma pneumoniae), consider antibiotic de-escalation to target atypical bacterial infection. No radiology results from the last 24 hrs Current medications: Scheduled Meds:[START ON 11/02/2023] entecavir, 0.5 mg, Oral, Weekly albumin human, , , aspirin, 81 mg, Oral, Daily calcitriol, 0.25 mcg, Oral, Daily carBAMazepine, 200 mg, Oral, Nightly carvedilol, 25 mg, Oral, BID With Meals cinacalcet, 90 mg, Oral, Nightly cycloSPORINE modified, 100 mg, Oral, BID fenofibrate, 145 mg, Oral, Daily folic acid, 1,000 mcg, Oral, Daily gabapentin, 300 mg, Oral, Nightly guaiFENesin, 1,200 mg, Oral, Q12H hydrALAZINE, 100 mg, Oral, TID insulin lispro, 2-7 Units, Subcutaneous, 4x Daily AC & at Bedtime mycophenolate, 250 mg, Oral, Q12H NIFEdipine XL, 90 mg, Oral, BID pantoprazole, 40 mg, Oral, Q AM piperacillin-tazobactam, 4.5 g, Intravenous, Q12H sodium chloride, 10 mL, Intravenous, Q12H vancomycin (dosing per levels), , Does not apply, Daily Continuous Infusions:Pharmacy to dose vancomycin, PRN Meds:. acetaminophen albumin human albumin human ALPRAZolam senna-docusate sodium AND polyethylene glycol AND bisacodyl AND bisacodyl dextrose dextrose diphenhydrAMINE glucagon (human recombinant) heparin (porcine) HYDROmorphone melatonin naloxone ondansetron oxyCODONE-acetaminophen Pharmacy to dose vancomycin promethazine OR promethazine [COMPLETED] Insert Peripheral IV AND sodium chloride sodium chloride sodium chloride Assessment & Plan Assessment & Plan Active Hospital Problems Diagnosis POA Arm pain [M79.603] Yes Pneumonia [J18.9] Yes KIM (nonalcoholic steatohepatitis) [K75.81] Yes History of liver transplant [Z94.4] Not Applicable Immunosuppression [D84.9] Yes Type 2 diabetes mellitus [E11.9] Yes ESRD (end stage renal disease) [N18.6] Yes Resolved Hospital Problems No resolved problems to display. Brief Hospital Course to date: Aiden Stauffer Jr. is a 48 y.o. male with history of DM2, KIM cirrhosis status post liver transplant (2017) on chronic immunosuppression, ESRD on HD, prior discitis/epidural abscess status postlaminectomy and I&D of abscess (2019), included fistula graft (07/2023), who is scheduled for revision by Dr. Gruber, who presented for evaluation of worsening pain and swelling and AV fistula graft over the past 48 hours. Also found to have right lower lobe pneumonia. ESRD on HD Malfunctioning AVF with concern for Possible Infected graft Gram Positive Bacteremia -nephrology following, continue HD MWF via tunneled line -Dr. Gruber took for AVF ligation 10/26 -blood cultures positive for GPCs, BCID negative, awaiting speciation, ID following -continue IV Abx per ID -plan removal of HD cath today after dialysis with plans to leave out for 2-3 days prior to replacement, Dr. Gruber out of town will see if IR can remove line -consider Echo pending blood cultures RLL Pneumonia -resp PCR negative, blood cultures negative -continue ABX per above -as needed pulmonary toilet, add mucinex -Will need to follow-up for resolution with repeat imaging outpatient H/o KIM cirrhosis s/p liver transplant -continue antirejection meds: CellCept, mycophenolate -Has been on entecavir, took last on 10/24 and takes weekly -follows at for transplant -CT abd/pelvis with no acute abnormality T2DM - hold oral hypoglycemics - HbA1C 6.5 07/2023 - SSI with scheduled accu checks H/o discitis/epidural abscess (2019) - s/p laminectomy and I&D of abscess by Dr. Garnica. Followed by ID/Dr. Rodriguez for his complete course of ABX JC- CPAP as needed while inpatient Anemia- H/H stable and at baseline Morbid obesity- complicates all aspects of care Expected Discharge Location and Transportation: Home Expected Discharge Expected Discharge Date: 10/30/2023; Expected Discharge Time: DVT prophylaxis: Medical and mechanical DVT prophylaxis orders are present. AM-PAC 6 Clicks Score (PT): 24 (10/30/23 0600) CODE STATUS: Code Status and Medical Interventions: Ordered at: 10/26/23 0356 Level Of Support Discussed With: Patient Code Status (Patient has no pulse and is not breathing): CPR (Attempt to Resuscitate) Medical Interventions (Patient has pulse or is breathing): Full Support Michelle Shore DO 10/30/23 * Mark Edwards MD - 10/30/2023 10:07 AM EDT LOS: 3 days Patient Care Team: Edgar Fournier MD as PCP - General (Family Medicine) Claudia Calles MD as Consulting Physician (Cardiology) Chief Complaint: Infected AV fistula. 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 Patient admitted due to pain and infection. Subjective Seen on dialysis, tolerating well. Denies chest pain or shortness of breath. Tunneled dialysis catheter to be removed today after dialysis today. Interval History: AV fistula ligation done 10/27/[address] Gruber Blood cultures positive. Patient getting antibiotic. Objective Vital Sign Min/Max for last 24 hours Temp Min: 98.1 ??F (36.7 ??C) Max: 100.2 ??F (37.9 ??C) BP Min: 98/75 Max: 146/65 Pulse Min: 77 Max: 99 Resp Min: 18 Max: 20 SpO2 Min: 87 % Max: 98 % Flow (L/min) Min: 2 Max: 4 No data recorded Flowsheet Rows Flowsheet Row First Filed Value Admission Height 175.3 cm (69 ) Documented at 10/25/20232227 Admission Weight 136 kg (300 lb) Documented at 10/25/20238 No intake/output data recorded. I/O last 3 completed shifts: In: 900 [P.O.:600; IV Piggyback:300] Out: - Physical Exam: General Appearance: Morbid obesity male Eyes: PER, EOMI. Neck: Supple no JVD. Lungs: Clear auscultation, no rales rhonchi's, equal chest movement, nonlabored. Heart: No gallop, murmur, rub, RRR. Abdomen: Soft, nontender, positive bowel sounds, obesity. Extremities: 1+ bilateral lower extremity edema no cyanosis. Neuro: No focal deficit, moving all extremities, alert oriented X 3 Left forearm AV fistula with areas of inflammation. No bruit Tunneled catheter right IJ. WBC WBC Date Value Ref Range Status 10/30/2023 5.35 3.40 - 10.80 10*3/mm3 Final 10/29/2023 7.31 3.40 - 10.80 10*3/mm3 Final 10/28/2023 5.50 3.40 - 10.80 10*3/mm3 Final HGB Hemoglobin Date Value Ref Range Status 10/30/2023 9.6 (L) 13.0 - 17.7 g/dL Final 10/29/2023 11.2 (L) 13.0 - 17.7 g/dL Final 10/28/2023 10.8 (L) 13.0 - 17.7 g/dL Final HCT Hematocrit Date Value Ref Range Status 10/30/2023 32.4 (L) 37.5 - 51.0 % Final 10/29/2023 35.4 (L) 37.5 - 51.0 % Final 10/28/2023 34.9 (L) 37.5 - 51.0 % Final Platlets No results found for: LABPLAT MCV MCV Date Value Ref Range Status 10/30/2023 108.4 (H) 79.0 - 97.0 fL Final 10/29/2023 102.6 (H) 79.0 - 97.0 fL Final 10/28/2023 101.7 (H) 79.0 - 97.0 fL Final Sodium Sodium Date Value Ref Range Status 10/30/2023 132 (L) 136 - 145 mmol/L Final 10/29/2023 132 (L) 136 - 145 mmol/L Final 10/28/2023 133 (L) 136 - 145 mmol/L Final Potassium Potassium Date Value Ref Range Status 10/30/2023 5.7 (H) 3.5 - 5.2 mmol/L Final Comment: Slight hemolysis detected by analyzer. Result may be falsely elevated. 10/29/2023 4.6 3.5 - 5.2 mmol/L Final 10/28/2023 4.3 3.5 - 5.2 mmol/L Final Chloride Chloride Date Value Ref Range Status 10/30/2023 92 (L) 98 - 107 mmol/L Final 10/29/2023 91 (L) 98 - 107 mmol/L Final 10/28/2023 94 (L) 98 - 107 mmol/L Final CO2 CO2 Date Value Ref Range Status 10/30/2023 19.0 (L) 22.0 - 29.0 mmol/L Final 10/29/2023 19.0 (L) 22.0 - 29.0 mmol/L Final 10/28/2023 23.0 22.0 - 29.0 mmol/L Final BUN BUN Date Value Ref Range Status 10/30/2023 55 (H) 6 - 20 mg/dL Final 10/29/2023 35 (H) 6 - 20 mg/dL Final 10/28/2023 23 (H) 6 - 20 mg/dL Final Creatinine Creatinine Date Value Ref Range Status 10/30/2023 10.39 (H) 0.76 - 1.27 mg/dL Final 10/29/2023 7.90 (H) 0.76 - 1.27 mg/dL Final 10/28/2023 5.33 (H) 0.76 - 1.27 mg/dL Final Calcium Calcium Date Value Ref Range Status 10/30/2023 8.1 (L) 8.6 - 10.5 mg/dL Final 10/29/2023 8.8 8.6 - 10.5 mg/dL Final 10/28/2023 9.2 8.6 - 10.5 mg/dL Final PO4 No results found for: CAPO4 Albumin No results found for: ALBUMIN Magnesium No results found for: MG Uric Acid No results found for: URICACID Results Review: I reviewed the patient's new clinical results. [START ON 11/02/2023] entecavir, 0.5 mg, Oral, Weekly albumin human, , , aspirin, 81 mg, Oral, Daily calcitriol, 0.25 mcg, Oral, Daily carBAMazepine, 200 mg, Oral, Nightly carvedilol, 25 mg, Oral, BID With Meals cinacalcet, 90 mg, Oral, Nightly cycloSPORINE modified, 100 mg, Oral, BID fenofibrate, 145 mg, Oral, Daily folic acid, 1,000 mcg, Oral, Daily gabapentin, 300 mg, Oral, Nightly guaiFENesin, 1,200 mg, Oral, Q12H hydrALAZINE, 100 mg, Oral, TID insulin lispro, 2-7 Units, Subcutaneous, 4x Daily AC & at Bedtime mycophenolate, 250 mg, Oral, Q12H NIFEdipine XL, 90 mg, Oral, BID pantoprazole, 40 mg, Oral, Q AM piperacillin-tazobactam, 4.5 g, Intravenous, Q12H sodium chloride, 10 mL, Intravenous, Q12H vancomycin (dosing per levels), , Does not apply, Daily Pharmacy to dose vancomycin, Medication Review: Reviewed Assessment & Plan Arm pain KIM (nonalcoholic steatohepatitis) History of liver transplant Immunosuppression Type 2 diabetes mellitus ESRD (end stage renal disease) Pneumonia 1. ESRD: On home hemodialysis initially via the AV fistula, now dialyzing with a tunneled catheter follow-up with Dr. Sky at [facility]. Dialyzes 4 times a week. 2. Infected AV fistula: AV fistula ligated 10/27/2023. Antibiotics per ID. 3. Metabolic acidosis: Due to renal failure. 4. Volume overload: corrected with dialysis. 5. KIM: History of liver transplant. On cyclosporine. 6. Type 2 diabetes. 7. Secondary hyperparathyroidism: On Cinacalcet 8. Hyperphosphatemia: On phosphate binders. 9. Vitamin D deficiency: On oral vitamin D. 10. Hyperlipidemia: On statin Recommendations: Hemodialysis today. Hyperkalemia/metabolic acidosis: Addressed with dialysis. Suggestion made by ID. Dennis to remove dialysis catheter after HD today if needed. Renal diet with fluid restriction less than 1500 mL/day High risk complex patient with multiple medical problems. Mark Edwards MD 10/30/23 10:07 EDT * Scar Richardson MD - 10/29/2023 1:06 PM EDT Images from the original note were not included. . INFECTIOUS DISEASE PROGRESS NOTE Aiden Stauffer Jr. 1975 [id number] Date of Consult: 10/27/2023 Admission Date: 10/25/2023 Requesting Provider: Michelle Shore DO Evaluating Physician: Scar Richardson MD Reason for Consultation: Infected AVF, immunocompromised patient. History of present illness: Patient is a 48 y.o. male with h/o T2DM, ESRD/HD/temporary dialysis cath 08/11/23/LUE AVF malfunctioning since 08/10/23, morbid obesity, KIM liver cirrhosis s/p liver transplant 2017 on chronic immunosuppression with Cyclosporine and CellCept/Hep B liver/on Entecavir, on and discitis/epidural abscess/laminectomy/I and D 2019 (treated by Dr. Cayetano Rodriguez) who was admitted to [facility] on 10/24 for pain at LUE AVF site that has been ongoing for 4 months. 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 He was treated with Zosyn and Vancomycin.He was discharged home on oral cefuroxime and oral doxycycline for 4 days. He returned to [facility] ED on 10/24 for worsening pain, swelling, and redness at LUE AVF site. He was scheduled for a revision by Dr. Gruber. He was afebrile with intermittent hypertension. He remains on room air. Initial labs were WBC 5300 with 67% segs, PCT 0.44, lactic acid 0.7, creatinine 9.74, and K 5.8. A respiratory panel PCR was negative. A MRSA PCR was negative. Blood cultures are negative todate. A CXR on 10/25/23 showed RLL pneumonia although not extremely impressive. He is currently on Zosyn and Vancomycin. ID was asked to evaluate and manage his antibiotic therapy. 3/16/24: Blood cultures positive for GPC in pairs/chains with BCID PCR negative. MRSA screen negative. Tmax 99.8. Patient denies any worsening cough. He denies f/c, v/d, rashes. He has chronic nausea. He states the dialysis catheter has had some bumps around the insertion site. 10/29/23: Afebrile. Blood culture with GPC ID/S pending. Repeat blood cultures pending. He continuesto have chronic nausea. He denies f/c, soa, v/d, rashes. He is worried about the dialysis catheter and feels it should be removed. Past Medical History: Diagnosis Date Diabetes mellitus Dialysis patient Hemorrhage THROAT VARICIES Kidney failure Liver transplanted Past Surgical History: Procedure Laterality Date ARTERIOVENOUS FISTULA Left 2019 CARDIAC CATHETERIZATION times 2022 CHOLECYSTECTOMY ENDOSCOPY N/A 05/04/2020 Procedure: ESOPHAGOGASTRODUODENOSCOPY; Surgeon: Dewey Betancourt MD; Location: [facility]; Service: Gastroenterology; Laterality: N/A; LUMBAR LAMINECTOMY DISCECTOMY DECOMPRESSION N/A 04/29/2020 Procedure: LUMBAR LAMINECTOMY DISCECTOMY DECOMPRESSION POSTERIOR L4-5; Surgeon: Yinka Garnica MD; Location: [facility]; Service: Neurosurgery; Laterality: N/A; History reviewed. No pertinent family history. Social History Socioeconomic History Marital status: Tobacco Use Smoking status: Never Passive exposure: Never Smokeless tobacco: Never Vaping Use Vaping status: Never Used Substance and Sexual Activity Alcohol use: Never Drug use: Never Sexual activity: Defer Allergies Allergen Reactions Tacrolimus Other (See Comments) and Unknown - High Severity Anxious feeling and muscle jerking. TOLERATED ENVARSUS BETTER THAN PROGRAF. Codeine Anxiety and Unknown - Low Severity Calcitriol GI Intolerance Medication: Current Facility-Administered Medications: [START ON 11/02/2023] *Patient Supplied* entecavir (BARACLUDE) tablet 0.5 mg, 0.5 mg, Oral, Weekly, Dontae Gruber MD acetaminophen (TYLENOL) tablet 650 mg, 650 mg, Oral, Q4H PRN, Dontae Gruber MD, 650 mg at10/27/23 1329 albumin human 25 % IV SOLN - ADS Override Pull, , , , ALPRAZolam (XANAX) tablet 0.5 mg, 0.5 mg, Oral, Daily PRN, Dontae Gruber MD, 0.5 mg at 10/28/23 185 aspirin chewable tablet 81 mg, 81 mg, Oral, Daily, Dontae Gruber MD, 81 mg at 10/29/23 08 sennosides-docusate (PERICOLACE) 8.6-50 MG per tablet 2 tablet, 2 tablet, Oral, BID PRN AND polyethylene glycol (MIRALAX) packet 17 g, 17 g, Oral, Daily PRN AND bisacodyl (DULCOLAX) EC tablet5 mg, 5 mg, Oral, Daily PRN AND bisacodyl (DULCOLAX) suppository 10 mg, 10 mg, Rectal, Daily PRN, Dontae Gruber MD calcitriol (ROCALTROL) capsule 0.25 mcg, 0.25 mcg, Oral, Daily, Dontae Gruber MD, 0.25 mcg at 10/29/23812 carBAMazepine (TEGretol) tablet 200 mg, 200 mg, Oral, Nightly, Dontae Gruber MD, 200 mg at 10/28/232029 carvedilol (COREG) tablet 25 mg, 25 mg, Oral, BID With Meals, Dontae Gruber MD, 25 mg at 10/29/23 08 cinacalcet (SENSIPAR) tablet 90 mg, 90 mg, Oral, Nightly, Dontae Gruber MD, 90 mg at 10/28/232029 cycloSPORINE modified (NEORAL) capsule 100 mg, 100 mg, Oral, BID, Dontae Gruber MD, 100 mg at 10/29/23 0814 dextrose (D50W) (25 g/50 mL) IV injection 25 g, 25 g, Intravenous, Q15 Min PRN, Dontae Gruber MD dextrose (GLUTOSE) oral gel 15 g, 15 g, Oral, Q15 Min PRN, Dontae Gruber MD diphenhydrAMINE (BENADRYL) capsule 25 mg, 25 mg, Oral, Q6H PRN, Michelle Shore DO, 25 mg at 10/29/23 0211 fenofibrate (TRICOR) tablet 145 mg, 145 mg, Oral, Daily, Dontae Gruber MD, 145 mg at 10/29/23 0814 folic acid (FOLVITE) tablet 1,000 mcg, 1,000 mcg, Oral, Daily, Dontae Gruber MD, 1,000 mcg at 10/29/23 08 gabapentin (NEURONTIN) capsule 300 mg, 300 mg, Oral, Nightly, Dontae Gruber MD, 300 mg at10/28/23 202 glucagon (GLUCAGEN) injection 1 mg, 1 mg, Intramuscular, Q15 Min PRN, Dontae Gruber MD guaiFENesin (MUCINEX) 12 hr tablet 1,200 mg, 1,200 mg, Oral, Q12H, Michelle Shore DO heparin (porcine) injection 2,000 Units, 2,000 Units, Intracatheter, PRN, Dontae Gruber MD, 2,000 Units at 10/26/23 1357 hydrALAZINE (APRESOLINE) tablet 100 mg, 100 mg, Oral, TID, Dontae Gruber MD, 100 mg at 10/29/23 0420 HYDROmorphone (DILAUDID) injection 0.5 mg, 0.5 mg, Intravenous, Q4H PRN, Michelle Shore DO Insulin Lispro (humaLOG) injection 2-7 Units, 2-7 Units, Subcutaneous, 4x Daily AC & at Bedtime, Dontae Gruber MD, 2 Units at 10/29/23 0813 melatonin tablet 5 mg, 5 mg, Oral, Nightly PRN, Dontae Gruber MD mycophenolate (CELLCEPT) capsule 250 mg, 250 mg, Oral, Q12H, Dontae Gruber MD, 250 mg at 10/29/23 0814 naloxone (NARCAN) injection 0.4 mg, 0.4 mg, Intravenous, PRN, Dontae Gruber MD NIFEdipine XL (PROCARDIA XL) 24 hr tablet 90 mg, 90 mg, Oral, BID, Dontae Gruber MD, 90 mg at 10/29/23 0812 ondansetron (ZOFRAN) injection 4 mg, 4 mg, Intravenous, Q6H PRN, Dontae Gruber MD, 4 mg at 10/29/23 0420 oxyCODONE-acetaminophen (PERCOCET) 5-325 MG per tablet 1 tablet, 1 tablet, Oral, Q4H PRN, Michelle Shore, DO, 1 tablet at 10/29/23 0813 pantoprazole (PROTONIX) EC tablet 40 mg, 40 mg, Oral, Q AM, Dontae Gruber MD, 40 mg at 10/29/23 0420 Pharmacy to dose vancomycin, , Does not apply, Continuous PRN, Dontae Gruber MD piperacillin-tazobactam (ZOSYN) 4.5 g IVPB in 100 mL NS MBP (CD), 4.5 g, Intravenous, Q12H, Dontae Gruber MD, 4.5 g at 10/29/23 0306 promethazine (PHENERGAN) tablet 12.5 mg, 12.5 mg, Oral, Q6H PRN, 12.5 mg at 10/27/23 2250 OR promethazine (PHENERGAN) suppository 12.5 mg, 12.5 mg, Rectal, Q6H PRN, Dontae Gruber MD [COMPLETED] Insert Peripheral IV, , , Once AND sodium chloride 0.9 % flush 10 mL, 10 mL, Intravenous, PRN, Dontae Gruber MD sodium chloride 0.9 % flush 10 mL, 10 mL, Intravenous, Q12H, Dontae Gruber MD, 10 mL at 10/29/23 0815 sodium chloride 0.9 % flush 10 mL, 10 mL, Intravenous, PRN, Dontae Gruber MD sodium chloride 0.9 % infusion 40 mL, 40 mL, Intravenous, PRN, Dontae Gruber MD vancomycin (dosing per levels), , Does not apply, Daily, Dontae Gruber MD Antibiotics: Anti-Infectives (From admission, onward) Ordered Dose/Rate Route Frequency Start Stop 10/26/23 1215 *Patient Supplied* entecavir (BARACLUDE) tablet 0.5 mg Ordering Provider: Dontae Gruber MD 0.5 mg Oral Weekly 11/02/23 0900 10/27/23 1531 vancomycin IVPB 2000 mg in 0.9% Sodium Chloride 500 mL Ordering Provider: Dontae Gruber MD 15 mg/kg ?? 136 kg 250 mL/hr over 120 Minutes Intravenous Once 10/27/23 2100 10/27/23 2300 10/26/23 0519 vancomycin (dosing per levels) Ordering Provider: Dontae Gruber MD Does not apply Daily 10/27/23 0900 10/31/23 0859 10/26/23 0356 piperacillin-tazobactam (ZOSYN) 4.5 g IVPB in 100 mL NS MBP (CD) Ordering Provider: Dontae Gruber MD 4.5 g over 4 Hours Intravenous Every 12 Hours 10/26/23 1600 10/31/23 0359 10/26/23 0356 piperacillin-tazobactam (ZOSYN) 4.5 g IVPB in 100 mL NS MBP (CD) Ordering Provider: Beulah Fleming DO 4.5 g over 30 Minutes Intravenous Once 10/26/23 0410 10/26/23 0641 10/26/23 0350 Pharmacy to dose vancomycin Ordering Provider: Dontae Gruber MD Does not apply Continuous PRN 10/26/23 0349 10/31/23 0348 10/26/23 0305 vancomycin 2750 mg/500 mL 0.9% NS IVPB ([facility]) Ordering Provider: Terry Burgess MD 20 mg/kg ?? 136 kg over 165 Minutes Intravenous Once 10/26/23 0321 10/26/23 0941 Review of Systems: See above. Physical Exam: Vital Signs Temp (24hrs), Av.6 ??F (36.4 ??C), Min:97 ??F (36.1 ??C), Max:98.4 ??F (36.9 ??C) Temp Min: 97 ??F (36.1 ??C) Max: 98.4 ??F (36.9 ??C) BP Min: 114/60 Max: 173/118 Pulse Min: 78 Max: 95 Resp Min: 18 Max: 18 SpO2 Min: 92 % Max: 94 % GENERAL: Awake and alert, in no acute distress. HEENT:EOMI. No conjunctival injection. No icterus. Oropharynx clear without evidence of thrush or exudate. HEART: RRR; No murmur. LUNGS: Clear to auscultation bilaterally without wheezing. Normal respiratory effort ABDOMEN: Soft, nontender, EXT: No edema. No cord. Left forearm AVF site with erythema, warmth, some tenderness/wrapped. : Without Anders catheter. MSK: No joint effusions or erythema SKIN: Warm and dry without cutaneous eruptions on Inspection/palpation. NEURO: Oriented to PPT. Motor 5/5 strength PSYCHIATRIC: Normal insight and judgment. Cooperative with PE Dialysis catheter with lesions around the insertion site with possible infection of sutures. Laboratory Data Results from last 7 days Lab Units 10/29/23 0503 10/28/23 0439 10/27/23 0500 WBC 10*3/mm3 7.31 5.50 4.56 HEMOGLOBIN g/dL 11.2* 10.8* 11.3* HEMATOCRIT % 35.4* 34.9* 36.3* PLATELETS 10*3/mm3 220 217 233 Results from last 7 days Lab Units 10/29/23 0503 SODIUM mmol/L 132* POTASSIUM mmol/L 4.6 CHLORIDE mmol/L 91* CO2 mmol/L 19.0* BUN mg/dL 35* CREATININE mg/dL 7.90* GLUCOSE mg/dL 164* CALCIUM mg/dL 8.8 Results from last 7 days Lab Units 10/27/23 0500 10/26/23 0033 10/23/23 1011 ALK PHOS U/L 129* < > 118 BILIRUBIN mg/dL 0.4 < > 0.4 BILIRUBIN DIRECT mg/dL -- -- 0.09 ALT (SGPT) U/L 8 < > 9 AST (SGOT) U/L 12 < > 13 < > = values in this interval not displayed. Results from last 7 days Lab Units 10/26/23 0033 LACTATE mmol/L 0.7 Results from last 7 days Lab Units 10/27/23 0500 VANCOMYCIN RM mcg/mL 7.70 Estimated Creatinine Clearance: 15.5 mL/min (A) (by C-G formula based on SCr of 7.9 mg/dL (H)). Microbiology: Microbiology Results (last 10 days) Procedure Component Value - Date/Time Blood Culture - Blood, Hand, Right [[id number]] (Abnormal) Collected: 10/26/23 0536 Lab Status: Preliminary result Specimen: Blood from Hand, Right Updated: 10/29/23 06 Blood Culture Gram Positive Cocci Isolated from -- Gram Stain Aerobic Bottle Gram positive cocci in pairs and chains Narrative: Less than seven (7) mL's of blood was collected. Insufficient quantity may yield false negative results. 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 Swab in UTM/VTM, 2 HR TAT - Swab, Nasopharynx [[id number]] (Normal) Collected: 10/26/23514 Lab Status: Final result Specimen: Swab from Nasopharynx Updated: 10/26/23619 ADENOVIRUS, PCR Not Detected Coronavirus 229E Not Detected Coronavirus HKU1 Not Detected Coronavirus NL63 Not Detected Coronavirus OC43 Not Detected COVID19 Not Detected Human Metapneumovirus Not Detected Human Rhinovirus/Enterovirus Not Detected Influenza A PCR Not Detected Influenza B PCR Not Detected Parainfluenza Virus 1 Not Detected Parainfluenza Virus 2 Not Detected Parainfluenza Virus 3 Not Detected Parainfluenza Virus 4 Not Detected RSV, PCR Not Detected Bordetella pertussis pcr Not Detected Bordetella parapertussis PCR Not Detected Chlamydophila pneumoniae PCR Not Detected Mycoplasma pneumo by PCR Not Detected Narrative: In the setting of a positive respiratory panel with a viral infection PLUS a negative procalcitoninwithout other underlying concern for bacterial infection, consider observing off antibiotics or discontinuation of antibiotics and continue supportive care. If the respiratory panel is positive for atypical bacterial infection (Bordetella pertussis, Chlamydophila pneumoniae, or Mycoplasma pneumoniae), consider antibiotic de-escalation to target atypical bacterial infection. MRSA Screen, PCR (Inpatient) - Swab, Nares [[id number]] (Normal) Collected: 10/26/23514 Lab Status: Final result Specimen: Swab from Nares Updated: 10/26/23 0958 MRSA PCR Negative Narrative: The negative predictive value of this diagnostic test is high and should only be used to consider de-escalating anti-MRSA therapy. A positive result may indicate colonization with MRSA and must be correlated clinically. MRSA Negative Blood Culture - Blood, Arm, Right [[id number]] (Abnormal) Collected: 10/26/23 0500 Lab Status: Preliminary result Specimen: Blood from Arm, Right Updated: 10/29/23623 Blood Culture Gram Positive Cocci Isolated from -- Gram Stain Anaerobic Bottle Gram positive cocci in pairs and chains Narrative: Less than seven (7) mL's of blood was collected. Insufficient quantity may yield false negative results. Blood Culture ID, PCR - Blood, Arm, Right [[id number]] Collected: 10/26/23 0500 Lab Status: Final result Specimen: Blood from Arm, Right Updated: 10/27/23 1658 BCID, PCR Negative by BCID PCR. Culture to Follow. BOTTLE TYPE Anaerobic Bottle Radiology: Imaging Results (Last 72 Hours) Procedure Component Value Units Date/Time CT Abdomen Pelvis Without Contrast [[id number]] Collected: 10/27/232101 Updated: 10/27/232110 Narrative: CT ABDOMEN PELVIS WO CONTRAST Date of Exam: 10/27/2023 5:56 PM EDT Indication: RLQ abdominal pain (Age >= 14y) hx of liver transplant. Comparison: CT abdomen pelvis 04/28/2020 Technique: Axial CT images were obtained of the abdomen and pelvis without the administration of contrast. Reconstructed coronal and sagittal images were also obtained. Automated exposure control anditerative construction methods were used. Findings: Lung bases without consolidation. No pericardial or pleural effusion. Coronary calcifications present. Small hiatal hernia. Lack of contrast limits assessment of abdominal organs and vasculature. Liver transplant. The liverand spleen are normal in size and contour. Normal adrenal glands. Gallbladder absent. Increased without findings of pancreatitis. Kidneys are atrophic. Negative for hydronephrosis or hydroureter. Wall thickening of bladder which may relate to underdistention. Prostate mildly enlarged. Negative for pneumoperitoneum. No bowel obstruction. Normal appendix. There are several ventral abdominal hernias for example small fat-containing upper abdominal ventral hernia (2/44). Large midlineventral hernia which contains nonobstructed small bowel loop above the umbilicus. Abdominal aorta without aneurysm. No fluid collection in the abdomen or pelvis. Advanced disc disease at L4-5 with endplate sclerosis. Laminectomy defect at L4. Chronic L4 pars defects. Sacralized L5 vertebral body. Negative for acute fracture. Impression: Impression: 1. No acute abnormality in the abdomen or pelvis. 2. Normal appendix. 3. Wall thickening of bladder may relate to underdistention, correlate with urinalysis to exclude cystitis. 4. Midline ventral hernia containing nonobstructed small bowel loops. 5. Additional chronic findings above. Electronically Signed: Massimo Burns MD 10/27/2023 9:08 PM EDT Workstation ID: [id number] Impression: - Left upper extremity atriovenous graft infection. Awaiting revision on 10/26. Blood cultures negative to date. 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 - Morbid obesity - End Stage renal disease/HD by dialysis catheter/left UE AVF malfunctioning and infected. - Type 2 diabetes mellitus - gram positive bacteremia--likely streptococcus/enterococcus. Concerning for dialysis line infection vs AVF as source. PLAN/RECOMMENDATIONS: Thank you for asking us to see Aiden Jaime Eh Marques, I recommend the following: - Follow blood cultures--GPC, ID/S pending. Colonies to tiny to evaluate on plate per micro. - Continue Zosyn - Continue Vancomycin - Continue LUE wound care per Dr. Gruber - Consider dialysis cathter removal--d/w Dr. Gruber today or tomorrow and possible placement of a new dialysis catheter. - Consider TTE to r/o endocarditis--not ordered yet. - Repeat blood cultures--pending . We are assuming AVF was source of bacteremia; however, the patient also has 4 month old HD catheterwhich should be removed. Scar Richardson MD saw and examined patient, verified hx and PE, reviewed labs and micro data, and formulated dx, plan for treatment and all medical decision making. NAVNEET Ruvalcaba-C for Scar Richardson MD I have seen and examined patient and agree with above NAVNEET Ruvalcaba 10/29/2023 13:06 EDT * Kody Wong MD - 10/29/2023 9:44 AM EDT LOS: 2 days Patient Care Team: Edgar Fournier MD as PCP - General (Family Medicine) Claudia Calles MD as Consulting Physician (Cardiology) Chief Complaint: Infected AV fistula. 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 Patient admitted due to pain and infection. Subjective Interval History: AV fistula ligation done 10/27/[address] Gruber Blood cultures positive. Patient getting antibiotic. No new events today chronic nausea Review of Systems: Patient denies shortness of breath, chest pain, dysuria, hematuria, nausea, vomiting. Objective Vital Sign Min/Max for last 24 hours Temp Min: 97 ??F (36.1 ??C) Max: 98.4 ??F (36.9 ??C) BP Min: 114/60 Max: 173/118 Pulse Min: 78 Max: 95 Resp Min: 18 Max: 18 SpO2 Min: 92 % Max: 94 % No data recorded No data recorded Flowsheet Rows Flowsheet Row First Filed Value Admission Height 175.3 cm (69 ) Documented at 10/25/20238 Admission Weight 136 kg (300 lb) Documented at 10/25/20238 No intake/output data recorded. I/O last 3 completed shifts: In: 800 [P.O.:600; IV Piggyback:200] Out: - Physical Exam: General Appearance: Morbid obesity male Eyes: PER, EOMI. Neck: Supple no JVD. Lungs: Clear auscultation, no rales rhonchi's, equal chest movement, nonlabored. Heart: No gallop, murmur, rub, RRR. Abdomen: Soft, nontender, positive bowel sounds, obesity. Extremities: 1+ bilateral lower extremity edema no cyanosis. Neuro: No focal deficit, moving all extremities, alert oriented X 3 Left forearm AV fistula with areas of inflammation. No bruit Tunneled catheter right IJ. WBC WBC Date Value Ref Range Status 10/29/2023 7.31 3.40 - 10.80 10*3/mm3 Final 10/28/2023 5.50 3.40 - 10.80 10*3/mm3 Final 10/27/2023 4.56 3.40 - 10.80 10*3/mm3 Final HGB Hemoglobin Date Value Ref Range Status 10/29/2023 11.2 (L) 13.0 - 17.7 g/dL Final 10/28/2023 10.8 (L) 13.0 - 17.7 g/dL Final 10/27/2023 11.3 (L) 13.0 - 17.7 g/dL Final HCT Hematocrit Date Value Ref Range Status 10/29/2023 35.4 (L) 37.5 - 51.0 % Final 10/28/2023 34.9 (L) 37.5 - 51.0 % Final 10/27/2023 36.3 (L) 37.5 - 51.0 % Final Platlets No results found for: LABPLAT MCV MCV Date Value Ref Range Status 10/29/2023 102.6 (H) 79.0 - 97.0 fL Final 10/28/2023 101.7 (H) 79.0 - 97.0 fL Final 10/27/2023 102.0 (H) 79.0 - 97.0 fL Final Sodium Sodium Date Value Ref Range Status 10/29/2023 132 (L) 136 - 145 mmol/L Final 10/28/2023 133 (L) 136 - 145 mmol/L Final 10/27/2023 134 (L) 136 - 145 mmol/L Final Potassium Potassium Date Value Ref Range Status 10/29/2023 4.6 3.5 - 5.2 mmol/L Final 10/28/2023 4.3 3.5 - 5.2 mmol/L Final 10/27/2023 5.0 3.5 - 5.2 mmol/L Final 10/26/2023 4.5 3.5 - 5.2 mmol/L Final Comment: Slight hemolysis detected by analyzer. Result may be falsely elevated. Chloride Chloride Date Value Ref Range Status 10/29/2023 91 (L) 98 - 107 mmol/L Final 10/28/2023 94 (L) 98 - 107 mmol/L Final 10/27/2023 95 (L) 98 - 107 mmol/L Final CO2 CO2 Date Value Ref Range Status 10/29/2023 19.0 (L) 22.0 - 29.0 mmol/L Final 10/28/2023 23.0 22.0 - 29.0 mmol/L Final 10/27/2023 27.0 22.0 - 29.0 mmol/L Final BUN BUN Date Value Ref Range Status 10/29/2023 35 (H) 6 - 20 mg/dL Final 10/28/2023 23 (H) 6 - 20 mg/dL Final 10/27/2023 41 (H) 6 - 20 mg/dL Final Creatinine Creatinine Date Value Ref Range Status 10/29/2023 7.90 (H) 0.76 - 1.27 mg/dL Final 10/28/2023 5.33 (H) 0.76 - 1.27 mg/dL Final 10/27/2023 6.81 (H) 0.76 - 1.27 mg/dL Final Calcium Calcium Date Value Ref Range Status 10/29/2023 8.8 8.6 - 10.5 mg/dL Final 10/28/2023 9.2 8.6 - 10.5 mg/dL Final 10/27/2023 9.0 8.6 - 10.5 mg/dL Final PO4 No results found for: CAPO4 Albumin Albumin Date Value Ref Range Status 10/27/2023 4.1 3.5 - 5.2 g/dL Final Magnesium No results found for: MG Uric Acid No results found for: URICACID Results Review: I reviewed the patient's new clinical results. [START ON 11/02/2023] entecavir, 0.5 mg, Oral, Weekly albumin human, , , aspirin, 81 mg, Oral, Daily calcitriol, 0.25 mcg, Oral, Daily carBAMazepine, 200 mg, Oral, Nightly carvedilol, 25 mg, Oral, BID With Meals cinacalcet, 90 mg, Oral, Nightly cycloSPORINE modified, 100 mg, Oral, BID fenofibrate, 145 mg, Oral, Daily folic acid, 1,000 mcg, Oral, Daily gabapentin, 300 mg, Oral, Nightly guaiFENesin, 1,200 mg, Oral, Q12H hydrALAZINE, 100 mg, Oral, TID insulin lispro, 2-7 Units, Subcutaneous, 4x Daily AC & at Bedtime mycophenolate, 250 mg, Oral, Q12H NIFEdipine XL, 90 mg, Oral, BID pantoprazole, 40 mg, Oral, Q AM piperacillin-tazobactam, 4.5 g, Intravenous, Q12H sodium chloride, 10 mL, Intravenous, Q12H vancomycin (dosing per levels), , Does not apply, Daily Pharmacy to dose vancomycin, Medication Review: Reviewed Assessment & Plan Arm pain KIM (nonalcoholic steatohepatitis) History of liver transplant Immunosuppression Type 2 diabetes mellitus ESRD (end stage renal disease) Pneumonia 1. ESRD: On home hemodialysis initially via the AV fistula, now dialyzing with a tunneled catheter follow-up with Dr. Sky at [facility]. Patient last dialyzed on Monday. Dialyzes 4 times a week. 2. Infected AV fistula: Patient has been scheduled with Dr. Lynn for possible revision. 3. Metabolic acidosis: Due to renal failure. 4. Volume overload corrected with dialysis. 5. KIM: History of liver transplant. On cyclosporine. 6. Type 2 diabetes. 7. Secondary hyperparathyroidism: On Cinacalcet 8. Hyperphosphatemia: On phosphate binders. 9. Vitamin D deficiency: On oral vitamin D. 10. Hyperlipidemia: On statin Recommendations: Surgical evaluation done by Dr. Gruber, AV fistula ligated 10/27/2023 Suggestion made by ID- Consider dialysis cathter removal - Consider TTE - Repeat blood cultures. Dialysis on Monday, postdialysis tunneled catheter can be taken out without dialysis for a few daysand then a new tunneled catheter can be placed so that patient can go home Home medication will be started as noted above. Renal diet with fluid restriction less than 1500 mL/day High risk complex patient with multiple medical problems. IV antibiotic per ID Kody Wong MD 10/29/23 09:44 EDT * Michelle Shore DO - 10/29/2023 9:36 AM EDT Images from the original note were not included. [facility] Medicine Services PROGRESS NOTE Patient Name: Aiden Stauffer Jr. : 1975 Date of Admission: 10/25/2023 Primary Care Physician: Edgar Fournier MD Subjective Subjective CC: F/u pneumona, infection AVF HPI: Patient resting in bed. Overall still complains of pain in left arm around the fistula site. Coughing up thick mucous. Objective Objective Vital Signs: Temp: [97 ??F (36.1 ??C)-98.4 ??F (36.9 ??C)] 97 ??F (36.1 ??C) Heart Rate: [78-95] 95 Resp: [18] 18 BP: (114-173)/(60-118) 114/60 Physical Exam: Constitutional: No acute distress, awake, alert, obese male HENT: NCAT, mucous membranes moist Respiratory: Clear to auscultation bilaterally, respiratory effort normal on room air Cardiovascular: RRR, no murmurs, rubs, or gallops Gastrointestinal: soft, nontender, nondistended Musculoskeletal: No bilateral ankle edema Psychiatric: Appropriate affect, cooperative Neurologic: Oriented x 3, speech clear, no focal deficits Skin: No rashes Left forearm AVF with some erythema/swelling, no drainage Results Reviewed: LAB RESULTS: Lab 10/29/23 0503 10/28/23 0439 10/27/23 0500 10/26/23 0703 10/26/23 0033 WBC 7.31 5.50 4.56 5.45 5.33 HEMOGLOBIN 11.2* 10.8* 11.3* 11.4* 11.3* HEMATOCRIT 35.4* 34.9* 36.3* 37.5 35.7* PLATELETS 220 217 233 235 250 NEUTROS ABS 5.44 3.14 2.61 3.29 3.38 IMMATURE GRANS (ABS) 0.15* 0.16* 0.13* 0.20* 0.19* LYMPHS ABS 0.58* 1.21 1.04 1.27 1.09 MONOS ABS 0.82 0.63 0.53 0.49 0.46 EOS ABS 0.29 0.33 0.23 0.17 0.18 MCV 102.6* 101.7* 102.0* 103.6* 99.7* PROCALCITONIN -- -- -- -- 0.44* LACTATE -- -- -- -- 0.7 PROTIME -- -- -- -- 14.2 APTT -- -- -- -- 29.0* Lab 10/29/23 0503 10/28/23 0439 10/27/23 0500 10/26/23 1423 10/26/23 0703 10/26/23 0033 SODIUM 132* 133* 134* -- 141 142 POTASSIUM 4.6 4.3 5.0 4.5 5.4* 5.8* CHLORIDE 91* 94* 95* -- 102 102 CO2 19.0* 23.0 27.0 -- 21.0* 22.0 ANION GAP 22.0* 16.0* 12.0 -- 18.0* 18.0* BUN 35* 23* 41* -- 62* 60* CREATININE 7.90* 5.33* 6.81* -- 10.13* 9.74* EGFR 7.7* 12.4* 9.2* -- 5.7* 6.0* GLUCOSE 164* 139* 173* -- 99 104* CALCIUM 8.8 9.2 9.0 -- 9.2 8.8 MAGNESIUM -- -- -- -- -- 1.9 Lab 10/27/23 0500 10/26/23 0703 10/26/23 0033 10/23/23 1011 TOTAL PROTEIN 6.5 7.4 7.0 6.8 ALBUMIN 4.1 4.2 4.2 4.2 GLOBULIN 2.4 3.2 2.8 -- ALT (SGPT) 8 8 8 9 AST (SGOT) 12 12 14 13 BILIRUBIN 0.4 0.3 0.3 0.4 INDIRECT BILIRUBIN -- -- -- 0.31 BILIRUBIN DIRECT -- -- -- 0.09 ALK PHOS 129* 133* 134* 118 Lab 10/26/23 0033 PROTIME 14.2 INR 1.08 Brief Urine Lab Results None Microbiology Results Abnormal Procedure Component Value - Date/Time Blood Culture ID, PCR - Blood, Arm, Right [[id number]] Collected: 10/26/23 0500 Lab Status: Final result Specimen: Blood from Arm, Right Updated: 10/27/23 1658 BCID, PCR Negative by BCID PCR. Culture to Follow. BOTTLE TYPE Anaerobic Bottle MRSA Screen, PCR (Inpatient) - Swab, Nares [[id number]] (Normal) Collected: 10/26/23 0515 Lab Status: Final result Specimen: Swab from Nares Updated: 10/26/23 0958 MRSA PCR Negative Narrative: The negative predictive value of this diagnostic test is high and should only be used to consider de-escalating anti-MRSA therapy. A positive result may indicate colonization with MRSA and must be correlated clinically. 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 Swab in UTM/VTM, 2 HR TAT - Swab, Nasopharynx [[id number]] (Normal) Collected: 10/26/23514 Lab Status: Final result Specimen: Swab from Nasopharynx Updated: 10/26/23619 ADENOVIRUS, PCR Not Detected Coronavirus 229E Not Detected Coronavirus HKU1 Not Detected Coronavirus NL63 Not Detected Coronavirus OC43 Not Detected COVID19 Not Detected Human Metapneumovirus Not Detected Human Rhinovirus/Enterovirus Not Detected Influenza A PCR Not Detected Influenza B PCR Not Detected Parainfluenza Virus 1 Not Detected Parainfluenza Virus 2 Not Detected Parainfluenza Virus 3 Not Detected Parainfluenza Virus 4 Not Detected RSV, PCR Not Detected Bordetella pertussis pcr Not Detected Bordetella parapertussis PCR Not Detected Chlamydophila pneumoniae PCR Not Detected Mycoplasma pneumo by PCR Not Detected Narrative: In the setting of a positive respiratory panel with a viral infection PLUS a negative procalcitoninwithout other underlying concern for bacterial infection, consider observing off antibiotics or discontinuation of antibiotics and continue supportive care. If the respiratory panel is positive for atypical bacterial infection (Bordetella pertussis, Chlamydophila pneumoniae, or Mycoplasma pneumoniae), consider antibiotic de-escalation to target atypical bacterial infection. CT Abdomen Pelvis Without Contrast Result Date: 10/27/2023 CT ABDOMEN PELVIS WO CONTRAST Date of Exam: 10/27/2023 5:56 PM EDT Indication: RLQ abdominal pain (Age >= 14y) hx of liver transplant. Comparison: CT abdomen pelvis 04/28/2020 Technique: Axial CT images were obtained of the abdomen and pelvis without the administration of contrast. Reconstructed coronal and sagittal images were also obtained. Automated exposure control and iterative constructionmethods were used. Findings: Lung bases without consolidation. No pericardial or pleural effusion. Coronary calcifications present. Small hiatal hernia. Lack of contrast limits assessment of abdominal organs and vasculature. Liver transplant. The liver and spleen are normal in size and contour. Normal adrenal glands. Gallbladder absent. Increased without findings of pancreatitis. Kidneys are atrophic. Negative for hydronephrosis or hydroureter. Wall thickening of bladder which may relate to underdistention. Prostate mildly enlarged. Negative for pneumoperitoneum. No bowel obstruction. Normal appendix. There are several ventral abdominal hernias for example small fat-containing upper abdominal ventral hernia (2/44). Large midline ventral hernia which contains nonobstructed small bowel loopabove the umbilicus. Abdominal aorta without aneurysm. No fluid collection in the abdomen or pelvis. Advanced disc disease at L4-5 with endplate sclerosis. Laminectomy defect at L4. Chronic L4 pars defects. Sacralized L5 vertebral body. Negative for acute fracture. Impression: Impression: 1. No acute abnormality in the abdomen or pelvis. 2. Normal appendix. 3. Wall thickening of bladder may relate to underdistention, correlate with urinalysis to exclude cystitis. 4. Midline ventral hernia containing nonobstructed small bowel loops. 5. Additional chronic findings above. Electronically Signed: Massimo Burns MD 10/27/2023 9:08 PM EDT Workstation ID: [id number] Current medications: Scheduled Meds:[START ON 11/02/2023] entecavir, 0.5 mg, Oral, Weekly albumin human, , , aspirin, 81 mg, Oral, Daily calcitriol, 0.25 mcg, Oral, Daily carBAMazepine, 200 mg, Oral, Nightly carvedilol, 25 mg, Oral, BID With Meals cinacalcet, 90 mg, Oral, Nightly cycloSPORINE modified, 100 mg, Oral, BID fenofibrate, 145 mg, Oral, Daily folic acid, 1,000 mcg, Oral, Daily gabapentin, 300 mg, Oral, Nightly guaiFENesin, 1,200 mg, Oral, Q12H hydrALAZINE, 100 mg, Oral, TID insulin lispro, 2-7 Units, Subcutaneous, 4x Daily AC & at Bedtime mycophenolate, 250 mg, Oral, Q12H NIFEdipine XL, 90 mg, Oral, BID pantoprazole, 40 mg, Oral, Q AM piperacillin-tazobactam, 4.5 g, Intravenous, Q12H sodium chloride, 10 mL, Intravenous, Q12H vancomycin (dosing per levels), , Does not apply, Daily Continuous Infusions:Pharmacy to dose vancomycin, PRN Meds:. acetaminophen albumin human ALPRAZolam senna-docusate sodium AND polyethylene glycol AND bisacodyl AND bisacodyl dextrose dextrose diphenhydrAMINE glucagon (human recombinant) heparin (porcine) HYDROmorphone melatonin naloxone ondansetron oxyCODONE-acetaminophen Pharmacy to dose vancomycin promethazine OR promethazine [COMPLETED] Insert Peripheral IV AND sodium chloride sodium chloride sodium chloride Assessment & Plan Assessment & Plan Active Hospital Problems Diagnosis POA Arm pain [M79.603] Yes Pneumonia [J18.9] Yes KIM (nonalcoholic steatohepatitis) [K75.81] Yes History of liver transplant [Z94.4] Not Applicable Immunosuppression [D84.9] Yes Type 2 diabetes mellitus [E11.9] Yes ESRD (end stage renal disease) [N18.6] Yes Resolved Hospital Problems No resolved problems to display. Brief Hospital Course to date: Aiden Stauffer Jr. is a 48 y.o. male with history of DM2, KIM cirrhosis status post liver transplant (2017) on chronic immunosuppression, ESRD on HD, prior discitis/epidural abscess status postlaminectomy and I&D of abscess (2019), included fistula graft (07/2023), who is scheduled for revision by Dr. Gruber, who presented for evaluation of worsening pain and swelling and AV fistula graft over the past 48 hours. Also found to have right lower lobe pneumonia. ESRD on HD Malfunctioning AVF with concern for Possible Infected graft Gram Positive Bacteremia -nephrology following, continue HD MWF via tunneled line -Dr. Gruber took for AVF ligation 10/26 -blood cultures positive for GPCs, BCID negative, awaiting speciation, ID following -continue IV Abx per ID RLL Pneumonia -resp PCR negative, blood cultures negative -continue ABX per above -as needed pulmonary toilet, add mucinex -Will need to follow-up for resolution with repeat imaging outpatient H/o KIM cirrhosis s/p liver transplant -continue antirejection meds: CellCept, mycophenolate -Has been on entecavir, took last on 10/24 and takes weekly -follows at for transplant -CT abd/pelvis with no acute abnormality T2DM - hold oral hypoglycemics - HbA1C 6.5 07/2023 - SSI with scheduled accu checks H/o discitis/epidural abscess (2019) - s/p laminectomy and I&D of abscess by Dr. Garnica. Followed by ID/Dr. Rodriguez for his complete course of ABX JC- CPAP as needed while inpatient Anemia- H/H stable and at baseline Morbid obesity- complicates all aspects of care Expected Discharge Location and Transportation: Home Expected Discharge Expected Discharge Date: 10/30/2023; Expected Discharge Time: DVT prophylaxis: Medical and mechanical DVT prophylaxis orders are present. AM-PAC 6 Clicks Score (PT): 24 (10/29/23 0100) CODE STATUS: Code Status and Medical Interventions: Ordered at: 10/26/23 0356 Level Of Support Discussed With: Patient Code Status (Patient has no pulse and is not breathing): CPR (Attempt to Resuscitate) Medical Interventions (Patient has pulse or is breathing): Full Support Michelle Shore DO 10/29/23 * Scar Richardson MD - 10/28/2023 12:24 PM EDT Images from the original note were not included. . INFECTIOUS DISEASE PROGRESS NOTE Aiden Stauffer 1975 [id number] Date of Consult: 10/27/2023 Admission Date: 10/25/2023 Requesting Provider: Michelle Shore DO Evaluating Physician: Scar Richardson MD Reason for Consultation: Infected AVF, immunocompromised patient. History of present illness: Patient is a 48 y.o. male with h/o T2DM, ESRD/HD/temporary dialysis cath 08/11/23/LUE AVF malfunctioning since 08/10/23, morbid obesity, KIM liver cirrhosis s/p liver transplant 2017 on chronic immunosuppression with Cyclosporine and CellCept/Hep B liver/on Entecavir, on and discitis/epidural abscess/laminectomy/I and D 2019 (treated by Dr. Cayetano Rodriguez) who was admitted to [facility] on 10/24 for pain at LUE AVF site that has been ongoing for 4 months. 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 He was treated with Zosyn and Vancomycin.He was discharged home on oral cefuroxime and oral doxycycline for 4 days. He returned to [facility] ED on 10/24 for worsening pain, swelling, and redness at LUE AVF site. He was scheduled for a revision by Dr. Gruber. He was afebrile with intermittent hypertension. He remains on room air. Initial labs were WBC 5300 with 67% segs, PCT 0.44, lactic acid 0.7, creatinine 9.74, and K 5.8. A respiratory panel PCR was negative. A MRSA PCR was negative. Blood cultures are negative todate. A CXR on 10/25/23 showed RLL pneumonia although not extremely impressive. He is currently on Zosyn and Vancomycin. ID was asked to evaluate and manage his antibiotic therapy. 10/28/23: Blood cultures positive for GPC in pairs/chains with BCID PCR negative. MRSA screen negative. Tmax 99.8. Patient denies any worsening cough. He denies f/c, v/d, rashes. He has chronic nausea. He states the dialysis catheter has had some bumps around the insertion site. Past Medical History: Diagnosis Date Diabetes mellitus Dialysis patient Hemorrhage THROAT VARICIES Kidney failure Liver transplanted Past Surgical History: Procedure Laterality Date ARTERIOVENOUS FISTULA Left 2019 CARDIAC CATHETERIZATION times 2022 CHOLECYSTECTOMY ENDOSCOPY N/A 05/04/2020 Procedure: ESOPHAGOGASTRODUODENOSCOPY; Surgeon: Dewey Betancourt MD; Location: [facility]; Service: Gastroenterology; Laterality: N/A; LUMBAR LAMINECTOMY DISCECTOMY DECOMPRESSION N/A 04/29/2020 Procedure: LUMBAR LAMINECTOMY DISCECTOMY DECOMPRESSION POSTERIOR L4-5; Surgeon: Yinka Garnica MD; Location: [facility]; Service: Neurosurgery; Laterality: N/A; History reviewed. No pertinent family history. Social History Socioeconomic History Marital status: Tobacco Use Smoking status: Never Passive exposure: Never Smokeless tobacco: Never Vaping Use Vaping status: Never Used Substance and Sexual Activity Alcohol use: Never Drug use: Never Sexual activity: Defer Allergies Allergen Reactions Tacrolimus Other (See Comments) and Unknown - High Severity Anxious feeling and muscle jerking. TOLERATED ENVARSUS BETTER THAN PROGRAF. Codeine Anxiety and Unknown - Low Severity Calcitriol GI Intolerance Medication: Current Facility-Administered Medications: [START ON 11/02/2023] *Patient Supplied* entecavir (BARACLUDE) tablet 0.5 mg, 0.5 mg, Oral, Weekly, Dontae Gruber MD acetaminophen (TYLENOL) tablet 650 mg, 650 mg, Oral, Q4H PRN, Dontae Gruber MD, 650 mg at10/27/23 1329 albumin human 25 % IV SOLN - ADS Override Pull, , , , [Transfer Hold] albumin human 25 % IV SOLN 12.5 g, 12.5 g, Intravenous, PRN, Kody Wong MD,25 g at 10/27/23 1307 ALPRAZolam (XANAX) tablet 0.5 mg, 0.5 mg, Oral, Daily PRN, Dontae Gruber MD, 0.5 mg at 10/26/23 1521 aspirin chewable tablet 81 mg, 81 mg, Oral, Daily, Dontae Gruber MD, 81 mg at 10/28/23 0846 sennosides-docusate (PERICOLACE) 8.6-50 MG per tablet 2 tablet, 2 tablet, Oral, BID PRN AND polyethylene glycol (MIRALAX) packet 17 g, 17 g, Oral, Daily PRN AND bisacodyl (DULCOLAX) EC tablet5 mg, 5 mg, Oral, Daily PRN AND bisacodyl (DULCOLAX) suppository 10 mg, 10 mg, Rectal, Daily PRN, Dontae Gruber MD calcitriol (ROCALTROL) capsule 0.25 mcg, 0.25 mcg, Oral, Daily, Dontae Gruber MD, 0.25 mcg at 10/28/23 08 carBAMazepine (TEGretol) tablet 200 mg, 200 mg, Oral, Nightly, Dontae Gruber MD, 200 mg at 10/27/232013 carvedilol (COREG) tablet 25 mg, 25 mg, Oral, BID With Meals, Dontae Gruber MD, 25 mg at 10/28/23 0845 cinacalcet (SENSIPAR) tablet 90 mg, 90 mg, Oral, Nightly, Dontae Gruber MD, 90 mg at 10/27/23 210 cycloSPORINE modified (NEORAL) capsule 100 mg, 100 mg, Oral, BID, Dontae Gruber MD, 100 mg at 10/28/23 0846 dextrose (D50W) (25 g/50 mL) IV injection 25 g, 25 g, Intravenous, Q15 Min PRN, Dontae Gruber MD dextrose (GLUTOSE) oral gel 15 g, 15 g, Oral, Q15 Min PRN, Dontae Gruber MD fenofibrate (TRICOR) tablet 145 mg, 145 mg, Oral, Daily, Dontae Gruber MD, 145 mg at 10/28/23 0848 folic acid (FOLVITE) tablet 1,000 mcg, 1,000 mcg, Oral, Daily, Dontae Gruber MD, 1,000 mcg at 10/28/23 0846 gabapentin (NEURONTIN) capsule 300 mg, 300 mg, Oral, Nightly, Dontae Gruber MD, 300 mg at10/27/232013 glucagon (GLUCAGEN) injection 1 mg, 1 mg, Intramuscular, Q15 Min PRN, Dontae Gruber MD heparin (porcine) injection 2,000 Units, 2,000 Units, Intracatheter, PRN, Dontae Gruber MD, 2,000 Units at 10/26/23 1357 hydrALAZINE (APRESOLINE) tablet 100 mg, 100 mg, Oral, TID, Dontea Gruber MD, 100 mg at 10/28/23 0516 HYDROmorphone (DILAUDID) injection 0.5 mg, 0.5 mg, Intravenous, Q2H PRN, Dontae Gruber MD, 0.5 mg at 10/28/23 1014 Insulin Lispro (humaLOG) injection 2-7 Units, 2-7 Units, Subcutaneous, 4x Daily AC & at Bedtime, Dontae Gruber MD, 2 Units at 10/27/23 2102 melatonin tablet 5 mg, 5 mg, Oral, Nightly PRN, Dontae Gruber MD mycophenolate (CELLCEPT) capsule 250 mg, 250 mg, Oral, Q12H, Dontae Gruber MD, 250 mg at 10/28/23 0847 naloxone (NARCAN) injection 0.4 mg, 0.4 mg, Intravenous, PRN, Dontae Gruber MD NIFEdipine XL (PROCARDIA XL) 24 hr tablet 90 mg, 90 mg, Oral, BID, Dontae Gruber MD, 90 mg at 10/28/23 0846 ondansetron (ZOFRAN) injection 4 mg, 4 mg, Intravenous, Q6H PRN, Dontae Gruber MD, 4 mg at 10/27/231957 oxyCODONE-acetaminophen (PERCOCET) 5-325 MG per tablet 1 tablet, 1 tablet, Oral, Q6H PRN, Dontae Gruber MD, 1 tablet at 10/28/23 0516 pantoprazole (PROTONIX) EC tablet 40 mg, 40 mg, Oral, Q AM, Dontae Gruber MD, 40 mg at 10/28/23 0516 Pharmacy to dose vancomycin, , Does not apply, Continuous PRN, Dontae Gruber MD piperacillin-tazobactam (ZOSYN) 4.5 g IVPB in 100 mL NS MBP (CD), 4.5 g, Intravenous, Q12H, Dontae Gruber MD, 4.5 g at 10/28/23 0415 promethazine (PHENERGAN) tablet 12.5 mg, 12.5 mg, Oral, Q6H PRN, 12.5 mg at 10/27/23 2250 OR promethazine (PHENERGAN) suppository 12.5 mg, 12.5 mg, Rectal, Q6H PRN, Dontae Gruber MD [COMPLETED] Insert Peripheral IV, , , Once AND sodium chloride 0.9 % flush 10 mL, 10 mL, Intravenous, PRN, Dontae Gruber MD sodium chloride 0.9 % flush 10 mL, 10 mL, Intravenous, Q12H, Dontae Gruber MD, 10 mL at 10/28/23 0846 sodium chloride 0.9 % flush 10 mL, 10 mL, Intravenous, PRN, Dontae Gruber MD sodium chloride 0.9 % infusion 40 mL, 40 mL, Intravenous, PRN, Dontae Gruber MD vancomycin (dosing per levels), , Does not apply, Daily, Dontae Gruber MD Antibiotics: Anti-Infectives (From admission, onward) Ordered Dose/Rate Route Frequency Start Stop 10/26/23 1215 *Patient Supplied* entecavir (BARACLUDE) tablet 0.5 mg Ordering Provider: Dontae Gruber MD 0.5 mg Oral Weekly 11/02/23 0900 10/27/23 1531 vancomycin IVPB 2000 mg in 0.9% Sodium Chloride 500 mL Ordering Provider: Dontae Gruber MD 15 mg/kg ?? 136 kg 250 mL/hr over 120 Minutes Intravenous Once 10/27/23 2100 10/27/23 2300 10/26/23 0519 vancomycin (dosing per levels) Ordering Provider: Dontae Gruber MD Does not apply Daily 10/27/23 0900 10/31/23 0859 10/26/23 0356 piperacillin-tazobactam (ZOSYN) 4.5 g IVPB in 100 mL NS MBP (CD) Ordering Provider: Dontae Gruber MD 4.5 g over 4 Hours Intravenous Every 12 Hours 10/26/23 1600 10/31/23 0359 10/26/23 0356 piperacillin-tazobactam (ZOSYN) 4.5 g IVPB in 100 mL NS MBP (CD) Ordering Provider: Beulah Fleming DO 4.5 g over 30 Minutes Intravenous Once 10/26/23 0410 10/26/23 0641 10/26/23 0350 Pharmacy to dose vancomycin Ordering Provider: Dontae Gruber MD Does not apply Continuous PRN 10/26/23 0349 10/31/23 0348 10/26/23 0305 vancomycin 2750 mg/500 mL 0.9% NS IVPB ([facility]) Ordering Provider: Terry Burgess MD 20 mg/kg ?? 136 kg over 165 Minutes Intravenous Once 10/26/23 0321 10/26/23 0941 Review of Systems: See above. Physical Exam: Vital Signs Temp (24hrs), Av.6 ??F (37 ??C), Min:97.3 ??F (36.3 ??C), Max:99.8 ??F (37.7 ??C) Temp Min: 97.3 ??F (36.3 ??C) Max: 99.8 ??F (37.7 ??C) BP Min: 117/78 Max: 179/79 Pulse Min: 70 Max: 81 Resp Min: 10 Max: 22 SpO2 Min: 90 % Max: 98 % GENERAL: Awake and alert, in no acute distress. HEENT:EOMI. No conjunctival injection. No icterus. Oropharynx clear without evidence of thrush or exudate. HEART: RRR; No murmur. LUNGS: Clear to auscultation bilaterally without wheezing. Normal respiratory effort ABDOMEN: Soft, nontender, EXT: No edema. No cord. Left forearm AVF site with erythema, warmth, some tenderness/wrapped. : Without Anders catheter. MSK: No joint effusions or erythema SKIN: Warm and dry without cutaneous eruptions on Inspection/palpation. NEURO: Oriented to PPT. Motor 5/5 strength PSYCHIATRIC: Normal insight and judgment. Cooperative with PE Dialysis catheter with lesions around the insertion site with possible infection of sutures. Laboratory Data Results from last 7 days Lab Units 10/28/23 0439 10/27/23 0500 10/26/23 0703 WBC 10*3/mm3 5.50 4.56 5.45 HEMOGLOBIN g/dL 10.8* 11.3* 11.4* HEMATOCRIT % 34.9* 36.3* 37.5 PLATELETS 10*3/mm3 217 233 235 Results from last 7 days Lab Units 10/28/23 0439 SODIUM mmol/L 133* POTASSIUM mmol/L 4.3 CHLORIDE mmol/L 94* CO2 mmol/L 23.0 BUN mg/dL 23* CREATININE mg/dL 5.33* GLUCOSE mg/dL 139* CALCIUM mg/dL 9.2 Results from last 7 days Lab Units 10/27/23 0500 10/26/23 0033 10/23/23 1011 ALK PHOS U/L 129* < > 118 BILIRUBIN mg/dL 0.4 < > 0.4 BILIRUBIN DIRECT mg/dL -- -- 0.09 ALT (SGPT) U/L 8 < > 9 AST (SGOT) U/L 12 < > 13 < > = values in this interval not displayed. Results from last 7 days Lab Units 10/26/23 0033 LACTATE mmol/L 0.7 Results from last 7 days Lab Units 10/27/23 0500 VANCOMYCIN RM mcg/mL 7.70 Estimated Creatinine Clearance: 23 mL/min (A) (by C-G formula based on SCr of 5.33 mg/dL (H)). Microbiology: Microbiology Results (last 10 days) Procedure Component Value - Date/Time Blood Culture - Blood, Hand, Right [[id number]] (Abnormal) Collected: 10/26/23 05 Lab Status: Preliminary result Specimen: Blood from Hand, Right Updated: 10/28/23 0617 Blood Culture Abnormal Stain Gram Stain Aerobic Bottle Gram positive cocci in pairs and chains Narrative: Less than seven (7) mL's of blood was collected. Insufficient quantity may yield false negative results. 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 Swab in UTM/VTM, 2 HR TAT - Swab, Nasopharynx [[id number]] (Normal) Collected: 10/26/23514 Lab Status: Final result Specimen: Swab from Nasopharynx Updated: 10/26/23 0620 ADENOVIRUS, PCR Not Detected Coronavirus 229E Not Detected Coronavirus HKU1 Not Detected Coronavirus NL63 Not Detected Coronavirus OC43 Not Detected COVID19 Not Detected Human Metapneumovirus Not Detected Human Rhinovirus/Enterovirus Not Detected Influenza A PCR Not Detected Influenza B PCR Not Detected Parainfluenza Virus 1 Not Detected Parainfluenza Virus 2 Not Detected Parainfluenza Virus 3 Not Detected Parainfluenza Virus 4 Not Detected RSV, PCR Not Detected Bordetella pertussis pcr Not Detected Bordetella parapertussis PCR Not Detected Chlamydophila pneumoniae PCR Not Detected Mycoplasma pneumo by PCR Not Detected Narrative: In the setting of a positive respiratory panel with a viral infection PLUS a negative procalcitoninwithout other underlying concern for bacterial infection, consider observing off antibiotics or discontinuation of antibiotics and continue supportive care. If the respiratory panel is positive for atypical bacterial infection (Bordetella pertussis, Chlamydophila pneumoniae, or Mycoplasma pneumoniae), consider antibiotic de-escalation to target atypical bacterial infection. MRSA Screen, PCR (Inpatient) - Swab, Nares [[id number]] (Normal) Collected: 10/26/23514 Lab Status: Final result Specimen: Swab from Nares Updated: 10/26/23 0958 MRSA PCR Negative Narrative: The negative predictive value of this diagnostic test is high and should only be used to consider de-escalating anti-MRSA therapy. A positive result may indicate colonization with MRSA and must be correlated clinically. MRSA Negative Blood Culture - Blood, Arm, Right [[id number]] (Abnormal) Collected: 10/26/23 0500 Lab Status: Preliminary result Specimen: Blood from Arm, Right Updated: 10/28/23 0617 Blood Culture Abnormal Stain Gram Stain Anaerobic Bottle Gram positive cocci in pairs and chains Narrative: Less than seven (7) mL's of blood was collected. Insufficient quantity may yield false negative results. Blood Culture ID, PCR - Blood, Arm, Right [[id number]] Collected: 10/26/23 0500 Lab Status: Final result Specimen: Blood from Arm, Right Updated: 10/27/23 1658 BCID, PCR Negative by BCID PCR. Culture to Follow. BOTTLE TYPE Anaerobic Bottle Radiology: Imaging Results (Last 72 Hours) Procedure Component Value Units Date/Time CT Abdomen Pelvis Without Contrast [[id number]] Collected: 10/27/232101 Updated: 10/27/232110 Narrative: CT ABDOMEN PELVIS WO CONTRAST Date of Exam: 10/27/2023 5:56 PM EDT Indication: RLQ abdominal pain (Age >= 14y) hx of liver transplant. Comparison: CT abdomen pelvis 04/28/2020 Technique: Axial CT images were obtained of the abdomen and pelvis without the administration of contrast. Reconstructed coronal and sagittal images were also obtained. Automated exposure control anditerative construction methods were used. Findings: Lung bases without consolidation. No pericardial or pleural effusion. Coronary calcifications present. Small hiatal hernia. Lack of contrast limits assessment of abdominal organs and vasculature. Liver transplant. The liverand spleen are normal in size and contour. Normal adrenal glands. Gallbladder absent. Increased without findings of pancreatitis. Kidneys are atrophic. Negative for hydronephrosis or hydroureter. Wall thickening of bladder which may relate to underdistention. Prostate mildly enlarged. Negative for pneumoperitoneum. No bowel obstruction. Normal appendix. There are several ventral abdominal hernias for example small fat-containing upper abdominal ventral hernia (2/44). Large midlineventral hernia which contains nonobstructed small bowel loop above the umbilicus. Abdominal aorta without aneurysm. No fluid collection in the abdomen or pelvis. Advanced disc disease at L4-5 with endplate sclerosis. Laminectomy defect at L4. Chronic L4 pars defects. Sacralized L5 vertebral body. Negative for acute fracture. Impression: Impression: 1. No acute abnormality in the abdomen or pelvis. 2. Normal appendix. 3. Wall thickening of bladder may relate to underdistention, correlate with urinalysis to exclude cystitis. 4. Midline ventral hernia containing nonobstructed small bowel loops. 5. Additional chronic findings above. Electronically Signed: Massimo Burns MD 10/27/2023 9:08 PM EDT Workstation ID: [id number] XR Chest 1 View [[id number]] Collected: 10/25/232319 Updated: 10/25/232324 Narrative: XR CHEST 1 VW Date of Exam: 10/25/2023 11:00 PM EDT Indication: cough Comparison: 08/02/2023. Findings: Patchy airspace disease is seen within the right lower lobe. Right internal jugular PermCath with the tip in the upper SVC.. No pleural fluid. No pneumothorax. The pulmonary vasculature appears within normal limits. The cardiac and mediastinal silhouette appear unremarkable. No acute osseous abnormality identified. Impression: Impression: Right lower lobe pneumonia. Follow-up to resolution recommended. Electronically Signed: Ashli Abreu MD 10/25/2023 11:22 PM EDT Workstation ID: [id number] Impression: - Left upper extremity atriovenous graft infection. Awaiting revision on 10/26. Blood cultures negative to date. 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 - Morbid obesity - End Stage renal disease/HD by dialysis catheter/left UE AVF malfunctioning and infected. - Type 2 diabetes mellitus - gram positive bacteremia--likely streptococcus/enterococcus. Concerning for dialysis line infection vs AVF as source. PLAN/RECOMMENDATIONS: Thank you for asking us to see Aiden Stauffer Jr., I recommend the following: - Follow blood cultures - Continue Zosyn - Continue Vancomycin - Continue LUE wound care per Dr. Gruber - Consider dialysis cathter removal - Consider TTE - Repeat blood cultures. We are assuming AVF was source of bacteremia, patient also has 4 month old HD catheter Scar Richardson MD saw and examined patient, verified hx and PE, reviewed labs and micro data, and formulated dx, plan for treatment and all medical decision making. SAM RuvalcabaC for Scar Richardson MD I have seen and examined patient and agree with above F/u repeat blood cultures NAVNEET Ruvalcaba 10/28/2023 12:24 EDT * Michelle Shore, DO - 10/28/2023 11:07 AM EDT Images from the original note were not included. [facility] Medicine Services PROGRESS NOTE Patient Name: Aiden Stauffer Jr. : 1975 Date of Admission: 10/25/2023 Primary Care Physician: Edgar Fournier MD Subjective Subjective CC: F/u pneumona, infection AVF HPI: Patient resting in bed. Left arm is hurting him more this morning and redness looks worse. Dilaudidis not lasting long enough. Objective Objective Vital Signs: Temp: [97.3 ??F (36.3 ??C)-99.8 ??F (37.7 ??C)] 97.3 ??F (36.3 ??C) Heart Rate: [70-81] 75 Resp: [10-22] 18 BP: (117-179)/(63-93) 145/84 Flow (L/min): [2-3] 2 Physical Exam: Constitutional: No acute distress, awake, alert, obese male HENT: NCAT, mucous membranes moist Respiratory: Clear to auscultation bilaterally, respiratory effort normal Cardiovascular: RRR, no murmurs, rubs, or gallops Gastrointestinal: soft, nontender, nondistended Musculoskeletal: No bilateral ankle edema Psychiatric: Appropriate affect, cooperative Neurologic: Oriented x 3, speech clear, no focal deficits Skin: No rashes Left forearm AVF with some erythema/swelling overtop two areas, no drainage Results Reviewed: LAB RESULTS: Lab 10/28/23 0439 10/27/23 0500 10/26/23 0703 10/26/23 0033 10/23/23 1011 WBC 5.50 4.56 5.45 5.33 3.8 HEMOGLOBIN 10.8* 11.3* 11.4* 11.3* 11.6* HEMATOCRIT 34.9* 36.3* 37.5 35.7* 35.4* PLATELETS 217 233 235 250 219 NEUTROS ABS 3.14 2.61 3.29 3.38 2,557 IMMATURE GRANS (ABS) 0.16* 0.13* 0.20* 0.19* -- LYMPHS ABS 1.21 1.04 1.27 1.09 -- MONOS ABS 0.63 0.53 0.49 0.46 110* EOS ABS 0.33 0.23 0.17 0.18 144 MCV 101.7* 102.0* 103.6* 99.7* 99.5 PROCALCITONIN -- -- -- 0.44* -- LACTATE -- -- -- 0.7 -- PROTIME -- -- -- 14.2 -- APTT -- -- -- 29.0* -- Lab 10/28/23 0439 10/27/23 0500 10/26/23 1423 10/26/23 0703 10/26/23 0033 SODIUM 133* 134* -- 141 142 POTASSIUM 4.3 5.0 4.5 5.4* 5.8* CHLORIDE 94* 95* -- 102 102 CO2 23.0 27.0 -- 21.0* 22.0 ANION GAP 16.0* 12.0 -- 18.0* 18.0* BUN 23* 41* -- 62* 60* CREATININE 5.33* 6.81* -- 10.13* 9.74* EGFR 12.4* 9.2* -- 5.7* 6.0* GLUCOSE 139* 173* -- 99 104* CALCIUM 9.2 9.0 -- 9.2 8.8 MAGNESIUM -- -- -- -- 1.9 Lab 10/27/23 0500 10/26/23 0703 10/26/23 0033 10/23/23 1011 TOTAL PROTEIN 6.5 7.4 7.0 6.8 ALBUMIN 4.1 4.2 4.2 4.2 GLOBULIN 2.4 3.2 2.8 -- ALT (SGPT) 8 8 8 9 AST (SGOT) 12 12 14 13 BILIRUBIN 0.4 0.3 0.3 0.4 INDIRECT BILIRUBIN -- -- -- 0.31 BILIRUBIN DIRECT -- -- -- 0.09 ALK PHOS 129* 133* 134* 118 Lab 03/14/24 0033 PROTIME 14.2 INR 1.08 Brief Urine Lab Results None Microbiology Results Abnormal Procedure Component Value - Date/Time Blood Culture ID, PCR - Blood, Arm, Right [[id number]] Collected: 10/26/23 0500 Lab Status: Final result Specimen: Blood from Arm, Right Updated: 10/27/23 1658 BCID, PCR Negative by BCID PCR. Culture to Follow. BOTTLE TYPE Anaerobic Bottle MRSA Screen, PCR (Inpatient) - Swab, Nares [[id number]] (Normal) Collected: 10/26/23 05 Lab Status: Final result Specimen: Swab from Nares Updated: 10/26/23 0958 MRSA PCR Negative Narrative: The negative predictive value of this diagnostic test is high and should only be used to consider de-escalating anti-MRSA therapy. A positive result may indicate colonization with MRSA and must be correlated clinically. 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 Swab in UTM/VTM, 2 HR TAT - Swab, Nasopharynx [[id number]] (Normal) Collected: 10/26/23514 Lab Status: Final result Specimen: Swab from Nasopharynx Updated: 10/26/23 0620 ADENOVIRUS, PCR Not Detected Coronavirus 229E Not Detected Coronavirus HKU1 Not Detected Coronavirus NL63 Not Detected Coronavirus OC43 Not Detected COVID19 Not Detected Human Metapneumovirus Not Detected Human Rhinovirus/Enterovirus Not Detected Influenza A PCR Not Detected Influenza B PCR Not Detected Parainfluenza Virus 1 Not Detected Parainfluenza Virus 2 Not Detected Parainfluenza Virus 3 Not Detected Parainfluenza Virus 4 Not Detected RSV, PCR Not Detected Bordetella pertussis pcr Not Detected Bordetella parapertussis PCR Not Detected Chlamydophila pneumoniae PCR Not Detected Mycoplasma pneumo by PCR Not Detected Narrative: In the setting of a positive respiratory panel with a viral infection PLUS a negative procalcitoninwithout other underlying concern for bacterial infection, consider observing off antibiotics or discontinuation of antibiotics and continue supportive care. If the respiratory panel is positive for atypical bacterial infection (Bordetella pertussis, Chlamydophila pneumoniae, or Mycoplasma pneumoniae), consider antibiotic de-escalation to target atypical bacterial infection. CT Abdomen Pelvis Without Contrast Result Date: 10/27/2023 CT ABDOMEN PELVIS WO CONTRAST Date of Exam: 10/27/2023 5:56 PM EDT Indication: RLQ abdominal pain (Age >= 14y) hx of liver transplant. Comparison: CT abdomen pelvis 04/28/2020 Technique: Axial CT images were obtained of the abdomen and pelvis without the administration of contrast. Reconstructed coronal and sagittal images were also obtained. Automated exposure control and iterative constructionmethods were used. Findings: Lung bases without consolidation. No pericardial or pleural effusion. Coronary calcifications present. Small hiatal hernia. Lack of contrast limits assessment of abdominal organs and vasculature. Liver transplant. The liver and spleen are normal in size and contour. Normal adrenal glands. Gallbladder absent. Increased without findings of pancreatitis. Kidneys are atrophic. Negative for hydronephrosis or hydroureter. Wall thickening of bladder which may relate to underdistention. Prostate mildly enlarged. Negative for pneumoperitoneum. No bowel obstruction. Normal appendix. There are several ventral abdominal hernias for example small fat-containing upper abdominal ventral hernia (2/44). Large midline ventral hernia which contains nonobstructed small bowel loopabove the umbilicus. Abdominal aorta without aneurysm. No fluid collection in the abdomen or pelvis. Advanced disc disease at L4-5 with endplate sclerosis. Laminectomy defect at L4. Chronic L4 pars defects. Sacralized L5 vertebral body. Negative for acute fracture. Impression: Impression: 1. No acute abnormality in the abdomen or pelvis. 2. Normal appendix. 3. Wall thickening of bladder may relate to underdistention, correlate with urinalysis to exclude cystitis. 4. Midline ventral hernia containing nonobstructed small bowel loops. 5. Additional chronic findings above. Electronically Signed: Massimo Burns MD 10/27/2023 9:08 PM EDT Workstation ID: [id number] Current medications: Scheduled Meds:[START ON 11/02/2023] entecavir, 0.5 mg, Oral, Weekly albumin human, , , aspirin, 81 mg, Oral, Daily calcitriol, 0.25 mcg, Oral, Daily carBAMazepine, 200 mg, Oral, Nightly carvedilol, 25 mg, Oral, BID With Meals cinacalcet, 90 mg, Oral, Nightly cycloSPORINE modified, 100 mg, Oral, BID fenofibrate, 145 mg, Oral, Daily folic acid, 1,000 mcg, Oral, Daily gabapentin, 300 mg, Oral, Nightly hydrALAZINE, 100 mg, Oral, TID insulin lispro, 2-7 Units, Subcutaneous, 4x Daily AC & at Bedtime mycophenolate, 250 mg, Oral, Q12H NIFEdipine XL, 90 mg, Oral, BID pantoprazole, 40 mg, Oral, Q AM piperacillin-tazobactam, 4.5 g, Intravenous, Q12H sodium chloride, 10 mL, Intravenous, Q12H vancomycin (dosing per levels), , Does not apply, Daily Continuous Infusions:Pharmacy to dose vancomycin, PRN Meds:. acetaminophen albumin human [Transfer Hold] albumin human ALPRAZolam senna-docusate sodium AND polyethylene glycol AND bisacodyl AND bisacodyl dextrose dextrose glucagon (human recombinant) heparin (porcine) HYDROmorphone melatonin naloxone ondansetron oxyCODONE-acetaminophen Pharmacy to dose vancomycin promethazine OR promethazine [COMPLETED] Insert Peripheral IV AND sodium chloride sodium chloride sodium chloride Assessment & Plan Assessment & Plan Active Hospital Problems Diagnosis POA Arm pain [M79.603] Yes Pneumonia [J18.9] Yes KIM (nonalcoholic steatohepatitis) [K75.81] Yes History of liver transplant [Z94.4] Not Applicable Immunosuppression [D84.9] Yes Type 2 diabetes mellitus [E11.9] Yes ESRD (end stage renal disease) [N18.6] Yes Resolved Hospital Problems No resolved problems to display. Brief Hospital Course to date: Aiden Stauffer Jr. is a 48 y.o. male with history of DM2, KIM cirrhosis status post liver transplant (2017) on chronic immunosuppression, ESRD on HD, prior discitis/epidural abscess status postlaminectomy and I&D of abscess (2019), included fistula graft (07/2023), who is scheduled for revision by Dr. Gruber, who presented for evaluation of worsening pain and swelling and AV fistula graft over the past 48 hours. Also found to have right lower lobe pneumonia. ESRD on HD Malfunctioning AVF with concern for Possible Infected graft Gram Positive Bacteremia -nephrology following, continue HD MWF via tunneled line -Dr. Gruber took for AVF ligation 10/26 -blood cultures positive for GPCs, BCID negative, awaiting speciation, ID following -continue IV Abx per ID RLL Pneumonia -has cough. No leucocytosis or fever, however, is immunosuppressed -resp PCR negative, blood cultures negative -continue ABX above -as needed pulmonary toilet -Will need to follow-up for resolution with repeat imaging outpatient H/o KIM cirrhosis s/p liver transplant -continue antirejection meds: CellCept, mycophenolate (verified patient's dosing) -Has been on entecavir, took last on 10/24 and takes weekly -follows at for transplant -new RLQ abdominal pain, get CT abd/pelvis T2DM - hold oral hypoglycemics - HbA1C 6.5 07/2023 - SSI with scheduled accu checks H/o discitis/epidural abscess (2019) - s/p laminectomy and I&D of abscess by Dr. Garnica. Followed by ID/Dr. Rodriguez for his complete course of ABX JC- CPAP as needed while inpatient Anemia- H/H stable and at baseline Morbid obesity- complicates all aspects of care Expected Discharge Location and Transportation: Home Expected Discharge Expected Discharge Date: 10/30/2023; Expected Discharge Time: DVT prophylaxis: Medical and mechanical DVT prophylaxis orders are present. AM-PAC 6 Clicks Score (PT): 24 (10/28/23 0800) CODE STATUS: Code Status and Medical Interventions: Ordered at: 10/26/23 0356 Level Of Support Discussed With: Patient Code Status (Patient has no pulse and is not breathing): CPR (Attempt to Resuscitate) Medical Interventions (Patient has pulse or is breathing): Full Support Michelle Shore DO 10/28/23 * Kody Wong MD - 10/28/2023 10:50 AM EDT LOS: 1 day Patient Care Team: Edgar Fournier MD as PCP - General (Family Medicine) Claudia Calles MD as Consulting Physician (Cardiology) Chief Complaint: Infected AV fistula. 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 Patient admitted due to pain and infection. Subjective Interval History: AV fistula ligation done yesterday. Blood cultures positive. Patient getting antibiotic. No new events today chronic nausea Review of Systems: Patient denies shortness of breath, chest pain, dysuria, hematuria, nausea, vomiting. Objective Vital Sign Min/Max for last 24 hours Temp Min: 97.3 ??F (36.3 ??C) Max: 99.8 ??F (37.7 ??C) BP Min: 117/78 Max: 179/79 Pulse Min: 70 Max: 81 Resp Min: 10 Max: 22 SpO2 Min: 90 % Max: 98 % Flow (L/min) Min: 2 Max: 3 Weight Min: 136 kg (300 lb) Max: 136 kg (300 lb) Flowsheet Rows Flowsheet Row First Filed Value Admission Height 175.3 cm (69 ) Documented at 10/25/20232227 Admission Weight 136 kg (300 lb) Documented at 10/25/20238 I/O this shift: In: 440 [P.O.:240; IV Piggyback:200] Out: - I/O last 3 completed shifts: In: 1170 [P.O.:360; I.V.:300; Other:310; IV Piggyback:200] Out: 3340 Physical Exam: General Appearance: Awake alert oriented. Eyes: PER, EOMI. Neck: Supple no JVD. Lungs: Clear auscultation, no rales rhonchi's, equal chest movement, nonlabored. Heart: No gallop, murmur, rub, RRR. Abdomen: Soft, nontender, positive bowel sounds, obesity. Extremities: Trace edema bilateral lower extremity edema, no cyanosis. Neuro: No focal deficit, moving all extremities, alert oriented X 3 Left forearm AV fistula with areas of inflammation. No bruit Tunneled catheter right IJ. WBC WBC Date Value Ref Range Status 10/28/2023 5.50 3.40 - 10.80 10*3/mm3 Final 10/27/2023 4.56 3.40 - 10.80 10*3/mm3 Final 10/26/2023 5.45 3.40 - 10.80 10*3/mm3 Final 10/26/2023 5.33 3.40 - 10.80 10*3/mm3 Final HGB Hemoglobin Date Value Ref Range Status 10/28/2023 10.8 (L) 13.0 - 17.7 g/dL Final 10/27/2023 11.3 (L) 13.0 - 17.7 g/dL Final 10/26/2023 11.4 (L) 13.0 - 17.7 g/dL Final 10/26/2023 11.3 (L) 13.0 - 17.7 g/dL Final HCT Hematocrit Date Value Ref Range Status 10/28/2023 34.9 (L) 37.5 - 51.0 % Final 10/27/2023 36.3 (L) 37.5 - 51.0 % Final 10/26/2023 37.5 37.5 - 51.0 % Final 10/26/2023 35.7 (L) 37.5 - 51.0 % Final Platlets No results found for: LABPLAT MCV MCV Date Value Ref Range Status 10/28/2023 101.7 (H) 79.0 - 97.0 fL Final 10/27/2023 102.0 (H) 79.0 - 97.0 fL Final 10/26/2023 103.6 (H) 79.0 - 97.0 fL Final 10/26/2023 99.7 (H) 79.0 - 97.0 fL Final Sodium Sodium Date Value Ref Range Status 10/28/2023 133 (L) 136 - 145 mmol/L Final 10/27/2023 134 (L) 136 - 145 mmol/L Final 10/26/2023 141 136 - 145 mmol/L Final 10/26/2023 142 136 - 145 mmol/L Final Potassium Potassium Date Value Ref Range Status 10/28/2023 4.3 3.5 - 5.2 mmol/L Final 10/27/2023 5.0 3.5 - 5.2 mmol/L Final 10/26/2023 4.5 3.5 - 5.2 mmol/L Final Comment: Slight hemolysis detected by analyzer. Result may be falsely elevated. 10/26/2023 5.4 (H) 3.5 - 5.2 mmol/L Final 10/26/2023 5.8 (H) 3.5 - 5.2 mmol/L Final Comment: Slight hemolysis detected by analyzer. Result may be falsely elevated. Chloride Chloride Date Value Ref Range Status 10/28/2023 94 (L) 98 - 107 mmol/L Final 10/27/2023 95 (L) 98 - 107 mmol/L Final 10/26/2023 102 98 - 107 mmol/L Final 10/26/2023 102 98 - 107 mmol/L Final CO2 CO2 Date Value Ref Range Status 10/28/2023 23.0 22.0 - 29.0 mmol/L Final 10/27/2023 27.0 22.0 - 29.0 mmol/L Final 10/26/2023 21.0 (L) 22.0 - 29.0 mmol/L Final 10/26/2023 22.0 22.0 - 29.0 mmol/L Final BUN BUN Date Value Ref Range Status 10/28/2023 23 (H) 6 - 20 mg/dL Final 10/27/2023 41 (H) 6 - 20 mg/dL Final 10/26/2023 62 (H) 6 - 20 mg/dL Final 10/26/2023 60 (H) 6 - 20 mg/dL Final Creatinine Creatinine Date Value Ref Range Status 10/28/2023 5.33 (H) 0.76 - 1.27 mg/dL Final 10/27/2023 6.81 (H) 0.76 - 1.27 mg/dL Final 10/26/2023 10.13 (H) 0.76 - 1.27 mg/dL Final 10/26/2023 9.74 (H) 0.76 - 1.27 mg/dL Final Calcium Calcium Date Value Ref Range Status 10/28/2023 9.2 8.6 - 10.5 mg/dL Final 10/27/2023 9.0 8.6 - 10.5 mg/dL Final 10/26/2023 9.2 8.6 - 10.5 mg/dL Final 10/26/2023 8.8 8.6 - 10.5 mg/dL Final PO4 No results found for: CAPO4 Albumin Albumin Date Value Ref Range Status 10/27/2023 4.1 3.5 - 5.2 g/dL Final 10/26/2023 4.2 3.5 - 5.2 g/dL Final 10/26/2023 4.2 3.5 - 5.2 g/dL Final Magnesium Magnesium Date Value Ref Range Status 10/26/2023 1.9 1.6 - 2.6 mg/dL Final Uric Acid No results found for: URICACID Results Review: I reviewed the patient's new clinical results. [START ON 11/02/2023] entecavir, 0.5 mg, Oral, Weekly albumin human, , , aspirin, 81 mg, Oral, Daily calcitriol, 0.25 mcg, Oral, Daily carBAMazepine, 200 mg, Oral, Nightly carvedilol, 25 mg, Oral, BID With Meals cinacalcet, 90 mg, Oral, Nightly cycloSPORINE modified, 100 mg, Oral, BID fenofibrate, 145 mg, Oral, Daily folic acid, 1,000 mcg, Oral, Daily gabapentin, 300 mg, Oral, Nightly hydrALAZINE, 100 mg, Oral, TID insulin lispro, 2-7 Units, Subcutaneous, 4x Daily AC & at Bedtime mycophenolate, 250 mg, Oral, Q12H NIFEdipine XL, 90 mg, Oral, BID pantoprazole, 40 mg, Oral, Q AM piperacillin-tazobactam, 4.5 g, Intravenous, Q12H sodium chloride, 10 mL, Intravenous, Q12H vancomycin (dosing per levels), , Does not apply, Daily Pharmacy to dose vancomycin, Medication Review: Reviewed Assessment & Plan Arm pain KIM (nonalcoholic steatohepatitis) History of liver transplant Immunosuppression Type 2 diabetes mellitus ESRD (end stage renal disease) Pneumonia 1. ESRD: On home hemodialysis initially via the AV fistula, now dialyzing with a tunneled catheter follow-up with Dr. Sky at [facility]. Patient last dialyzed on Monday. Dialyzes 4 times a week. 2. Infected AV fistula: Patient has been scheduled with Dr. Lynn for possible revision. 3. Metabolic acidosis: Due to renal failure. 4. Volume overload corrected with dialysis. 5. KIM: History of liver transplant. On cyclosporine. 6. Type 2 diabetes. 7. Secondary hyperparathyroidism: On Cinacalcet 8. Hyperphosphatemia: On phosphate binders. 9. Vitamin D deficiency: On oral vitamin D. 10. Hyperlipidemia: On statin Recommendations: Surgical evaluation done by Dr. Gruber, AV fistula ligated 10/27/2023 Next dialysis Monday Home medication will be started as noted above. Renal diet with fluid restriction less than 1500 mL/day High risk complex patient with multiple medical problems. Patient can get IV antibiotic with using the tunneled catheter at home Kody Wong MD 10/28/23 10:50 EDT * Gia Hernandez [facility] - 10/27/2023 3:41 PM EDT Pharmacy Consult-Vancomycin Dosing Aiden Stauffer Jr. is a 48 y.o. male receiving vancomycin therapy. Mr. Stauffer has ESRD and is on hemodialysis Indication: SSTI Consulting Provider: hospitalist ID Consult: No Goal Trough: 10-15 Current Antimicrobial Therapy Anti-Infectives (From admission, onward) Ordered Dose/Rate Route Frequency Start Stop 10/26/23 1215 *Patient Supplied* entecavir (BARACLUDE) tablet 0.5 mg Ordering Provider: Jennifer Davison MD 0.5 mg Oral Weekly 11/02/23 0900 10/27/23 1531 vancomycin IVPB 2000 mg in 0.9% Sodium Chloride 500 mL Ordering Provider: Gia Hernandez [facility] 15 mg/kg ?? 136 kg 250 mL/hr over 120 Minutes Intravenous Once 10/27/23 2100 10/26/23 0519 vancomycin (dosing per levels) Ordering Provider: Chito Lowe, PharmD Does not apply Daily 10/27/23 0900 10/31/23 0859 10/26/23 0356 piperacillin-tazobactam (ZOSYN) 4.5 g IVPB in 100 mL NS MBP (CD) Ordering Provider: Beulah Fleming, DO 4.5 g over 4 Hours Intravenous Every 12 Hours 10/26/23 1600 10/31/23 0359 10/26/23 0356 piperacillin-tazobactam (ZOSYN) 4.5 g IVPB in 100 mL NS MBP (CD) Ordering Provider: Beulah Fleming DO 4.5 g over 30 Minutes Intravenous Once 10/26/23 0410 10/26/23 0641 10/26/23 0350 Pharmacy to dose vancomycin Ordering Provider: Beulah Fleming DO Does not apply Continuous PRN 10/26/23 0349 10/31/23 0348 10/26/23 0305 vancomycin 2750 mg/500 mL 0.9% NS IVPB ([facility]) Ordering Provider: Terry Burgess MD 20 mg/kg ?? 136 kg over 165 Minutes Intravenous Once 10/26/23 0321 10/26/23 0941 Allergies Allergies as of 10/25/2023 - Reviewed 10/25/2023 Allergen Reaction Noted Tacrolimus Other (See Comments) and Unknown - High Severity 03/02/2021 Codeine Anxiety and Unknown - Low Severity 06/02/2014 Calcitriol GI Intolerance 09/20/2023 Labs Results from last 7 days Lab Units 10/27/23 0500 10/26/23 0703 10/26/23 0033 BUN mg/dL 41* 62* 60* CREATININE mg/dL 6.81* 10.13* 9.74* Results from last 7 days Lab Units 10/27/23 0500 10/26/23 0703 10/26/23 0033 WBC 10*3/mm3 4.56 5.45 5.33 Evaluation of Dosing Last Dose Received in the ED/Outside Facility: N/A Is Patient on Dialysis or Renal Replacement: No Ht - 175.3 cm (69 ) Wt - 136 kg (300 lb) Estimated Creatinine Clearance: 18 mL/min (A) (by C-G formula based on SCr of 6.81 mg/dL (H)). Intake & Output (last 3 days) None Microbiology and Radiology Microbiology Results (last 10 days) Procedure Component Value - Date/Time Blood Culture - Blood, Hand, Right [[id number]] (Normal) Collected: 10/26/2336 Lab Status: Preliminary result Specimen: Blood from Hand, Right Updated: 10/27/23644 Blood Culture No growth at 24 hours Narrative: Less than seven (7) mL's of blood was collected. Insufficient quantity may yield false negative results. Respiratory Panel PCR w/COVID-19(SARS-CoV-2) MEILY/SHADIA/ANN/PAD/COR/MARIUM In-House, DRIVER MERCHANDISER Swab in UTM/VTM, 2 HR TAT - Swab, Nasopharynx [[id number]] (Normal) Collected: 10/26/23 0515 Lab Status: Final result Specimen: Swab from Nasopharynx Updated: 10/26/23619 ADENOVIRUS, PCR Not Detected Coronavirus 229E Not Detected Coronavirus HKU1 Not Detected Coronavirus NL63 Not Detected Coronavirus OC43 Not Detected COVID19 Not Detected Human Metapneumovirus Not Detected Human Rhinovirus/Enterovirus Not Detected Influenza A PCR Not Detected Influenza B PCR Not Detected Parainfluenza Virus 1 Not Detected Parainfluenza Virus 2 Not Detected Parainfluenza Virus 3 Not Detected Parainfluenza Virus 4 Not Detected RSV, PCR Not Detected Bordetella pertussis pcr Not Detected Bordetella parapertussis PCR Not Detected Chlamydophila pneumoniae PCR Not Detected Mycoplasma pneumo by PCR Not Detected Narrative: In the setting of a positive respiratory panel with a viral infection PLUS a negative procalcitoninwithout other underlying concern for bacterial infection, consider observing off antibiotics or discontinuation of antibiotics and continue supportive care. If the respiratory panel is positive for atypical bacterial infection (Bordetella pertussis, Chlamydophila pneumoniae, or Mycoplasma pneumoniae), consider antibiotic de-escalation to target atypical bacterial infection. MRSA Screen, PCR (Inpatient) - Swab, Nares [[id number]] (Normal) Collected: 10/26/23 0515 Lab Status: Final result Specimen: Swab from Nares Updated: 10/26/23 0958 MRSA PCR Negative Narrative: The negative predictive value of this diagnostic test is high and should only be used to consider de-escalating anti-MRSA therapy. A positive result may indicate colonization with MRSA and must be correlated clinically. MRSA Negative Blood Culture - Blood, Arm, Right [[id number]] (Normal) Collected: 10/26/23 0500 Lab Status: Preliminary result Specimen: Blood from Arm, Right Updated: 10/27/23 0645 Blood Culture No growth at 24 hours Narrative: Less than seven (7) mL's of blood was collected. Insufficient quantity may yield false negative results. Vancomycin Levels: Results from last 7 days Lab Units 10/27/23 0500 VANCOMYCIN RM mcg/mL 7.70 Assessment/Plan: Pharmacy to dose vancomycin for SSTI. Goal AUC is 400-600 Patient received a loading dose of vancomycin 2750 mg IV once on 10/25 at 0639. Vancomycin random returned subtherapeutic at 7.7 mcg/mL on 10/26 at 0500(~23 hour level) prior to HD. Due to patient receiving dialysis, continue dosing per levels. Will give vancomycin 2000 mg (15 mg/kg) x1 today. Plan to assess clearance by obtaining vancomycin random on 3/18 AM prior to dialysis. Will monitor renal function, culture and sensitivities, and clinical status and adjust regimen as needed. Pharmacy will continue to follow Gia Hernandez PharmD Patient Care Secretary 10/27/2023 15:41 EDT * Darling Gutierrez MS,RD,LD - 10/27/2023 3:08 PM EDT Nutrition Services Patient Name: Aiden Stauffer Jr. Date of : 1975 Admit Date: 10/25/2023 Pt screened for MST 2-unsure wt loss. Pt does not appear to have had recent wt loss (noted stated/estimated wt available). Pt does not otherwise meet nutrition risk screen criteria. RD to follow per protocol. Please consult for specific needs. Electronically signed by: Darling Gutierrez MS,GEOVANNA,NELLY 10/27/23 15:08 EDT * Dontae Gruber MD - 10/27/2023 3:01 PM EDT General Surgery I have reviewed the chart, my prior note(s), appropriate imaging, and labs. I have again discussed the risks and benefits of left radiocephalic AVF ligation with the patient. All of their questions have been answered. They understand and wish to proceed with surgical intervention. CBC Results from last 7 days Lab Units 10/27/23 0500 WBC 10*3/mm3 4.56 HEMOGLOBIN g/dL 11.3* HEMATOCRIT % 36.3* PLATELETS 10*3/mm3 233 CMP Results from last 7 days Lab Units 10/27/23 0500 SODIUM mmol/L 134* POTASSIUM mmol/L 5.0 CHLORIDE mmol/L 95* CO2 mmol/L 27.0 BUN mg/dL 41* CREATININE mg/dL 6.81* CALCIUM mg/dL 9.0 BILIRUBIN mg/dL 0.4 ALK PHOS U/L 129* ALT (SGPT) U/L 8 AST (SGOT) U/L 12 GLUCOSE mg/dL 173* Coagulation [place] PTT Date Value Ref Range Status 10/26/2023 29.0 (L) 60.0 - 90.0 seconds Final INR Date Value Ref Range Status 10/26/2023 1.08 0.89 - 1.12 Final Protime Date Value Ref Range Status 10/26/2023 14.2 12.2 - 14.5 Seconds Final No components found for: ECHO * Michelle Shore, DO - 10/27/2023 12:36 PM EDT Images from the original note were not included. [facility] Medicine Services PROGRESS NOTE Patient Name: Aiden Stauffer Jr. : 1975 Date of Admission: 10/25/2023 Primary Care Physician: Edgar Fournier MD Subjective Subjective CC: F/u pneumona, infection AVF HPI: Patient seen in HD. Complains of increasing RLQ abdominal pain overnight. Fistula remains slightly swollen and red. Objective Objective Vital Signs: Temp: [97.3 ??F (36.3 ??C)-98 ??F (36.7 ??C)] 97.8 ??F (36.6 ??C) Heart Rate: [70-107] 70 Resp: [14-18] 18 BP: (90-160)/(53-97) 134/76 Physical Exam: Constitutional: No acute distress, awake, alert, obese male HENT: NCAT, mucous membranes moist Respiratory: Clear to auscultation bilaterally, respiratory effort normal Cardiovascular: RRR, no murmurs, rubs, or gallops Gastrointestinal: soft, nontender, nondistended Musculoskeletal: No bilateral ankle edema Psychiatric: Appropriate affect, cooperative Neurologic: Oriented x 3, speech clear, no focal deficits Skin: No rashes Left forearm AVF with some erythema overtop two areas, no drainage Results Reviewed: LAB RESULTS: Lab 10/27/23 0500 10/26/23 0703 10/26/23 0033 10/23/23 1011 WBC 4.56 5.45 5.33 3.8 HEMOGLOBIN 11.3* 11.4* 11.3* 11.6* HEMATOCRIT 36.3* 37.5 35.7* 35.4* PLATELETS 233 235 250 219 NEUTROS ABS 2.61 3.29 3.38 2,557 IMMATURE GRANS (ABS) 0.13* 0.20* 0.19* -- LYMPHS ABS 1.04 1.27 1.09 -- MONOS ABS 0.53 0.49 0.46 110* EOS ABS 0.23 0.17 0.18 144 MCV 102.0* 103.6* 99.7* 99.5 PROCALCITONIN -- -- 0.44* -- LACTATE -- -- 0.7 -- PROTIME -- -- 14.2 -- APTT -- -- 29.0* -- Lab 10/27/23 0500 10/26/23 1423 10/26/23 0703 10/26/23 0033 SODIUM 134* -- 141 142 POTASSIUM 5.0 4.5 5.4* 5.8* CHLORIDE 95* -- 102 102 CO2 27.0 -- 21.0* 22.0 ANION GAP 12.0 -- 18.0* 18.0* BUN 41* -- 62* 60* CREATININE 6.81* -- 10.13* 9.74* EGFR 9.2* -- 5.7* 6.0* GLUCOSE 173* -- 99 104* CALCIUM 9.0 -- 9.2 8.8 MAGNESIUM -- -- -- 1.9 Lab 10/27/23 0500 10/26/23 0703 10/26/23 0033 10/23/23 1011 TOTAL PROTEIN 6.5 7.4 7.0 6.8 ALBUMIN 4.1 4.2 4.2 4.2 GLOBULIN 2.4 3.2 2.8 -- ALT (SGPT) 8 8 8 9 AST (SGOT) 12 12 14 13 BILIRUBIN 0.4 0.3 0.3 0.4 INDIRECT BILIRUBIN -- -- -- 0.31 BILIRUBIN DIRECT -- -- -- 0.09 ALK PHOS 129* 133* 134* 118 Lab 10/26/23 0033 PROTIME 14.2 INR 1.08 Brief Urine Lab Results None Microbiology Results Abnormal Procedure Component Value - Date/Time Blood Culture - Blood, Hand, Right [[id number]] (Normal) Collected: 10/26/23 0536 Lab Status: Preliminary result Specimen: Blood from Hand, Right Updated: 10/27/23 0645 Blood Culture No growth at 24 hours Narrative: Less than seven (7) mL's of blood was collected. Insufficient quantity may yield false negative results. Blood Culture - Blood, Arm, Right [[id number]] (Normal) Collected: 10/26/23 0500 Lab Status: Preliminary result Specimen: Blood from Arm, Right Updated: 10/27/23 0645 Blood Culture No growth at 24 hours Narrative: Less than seven (7) mL's of blood was collected. Insufficient quantity may yield false negative results. MRSA Screen, PCR (Inpatient) - Swab, Nares [[id number]] (Normal) Collected: 10/26/23514 Lab Status: Final result Specimen: Swab from Nares Updated: 10/26/23 09 MRSA PCR Negative Narrative: The negative predictive value of this diagnostic test is high and should only be used to consider de-escalating anti-MRSA therapy. A positive result may indicate colonization with MRSA and must be correlated clinically. 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 Swab in UTM/VTM, 2 HR TAT - Swab, Nasopharynx [[id number]] (Normal) Collected: 10/26/23514 Lab Status: Final result Specimen: Swab from Nasopharynx Updated: 10/26/23 06 ADENOVIRUS, PCR Not Detected Coronavirus 229E Not Detected Coronavirus HKU1 Not Detected Coronavirus NL63 Not Detected Coronavirus OC43 Not Detected COVID19 Not Detected Human Metapneumovirus Not Detected Human Rhinovirus/Enterovirus Not Detected Influenza A PCR Not Detected Influenza B PCR Not Detected Parainfluenza Virus 1 Not Detected Parainfluenza Virus 2 Not Detected Parainfluenza Virus 3 Not Detected Parainfluenza Virus 4 Not Detected RSV, PCR Not Detected Bordetella pertussis pcr Not Detected Bordetella parapertussis PCR Not Detected Chlamydophila pneumoniae PCR Not Detected Mycoplasma pneumo by PCR Not Detected Narrative: In the setting of a positive respiratory panel with a viral infection PLUS a negative procalcitoninwithout other underlying concern for bacterial infection, consider observing off antibiotics or discontinuation of antibiotics and continue supportive care. If the respiratory panel is positive for atypical bacterial infection (Bordetella pertussis, Chlamydophila pneumoniae, or Mycoplasma pneumoniae), consider antibiotic de-escalation to target atypical bacterial infection. XR Chest 1 View Result Date: 10/25/2023 XR CHEST 1 VW Date of Exam: 10/25/2023 11:00 PM EDT Indication: cough Comparison: 08/02/2023. Findings: Patchy airspace disease is seen within the right lower lobe. Right internal jugular PermCath with the tip in the upper SVC.. No pleural fluid. No pneumothorax. The pulmonary vasculature appears within normal limits. The cardiac and mediastinal silhouette appear unremarkable. No acute osseous abnormality identified. Impression: Impression: Right lower lobe pneumonia. Follow-up to resolution recommended. Electronically Signed: Ashli Abreu MD 10/25/2023 11:22 PM EDT Workstation ID: [id number] Current medications: Scheduled Meds:[START ON 11/02/2023] entecavir, 0.5 mg, Oral, Weekly albumin human, , , aspirin, 81 mg, Oral, Daily calcitriol, 0.25 mcg, Oral, Daily carBAMazepine, 200 mg, Oral, Nightly carvedilol, 25 mg, Oral, BID With Meals cinacalcet, 90 mg, Oral, Nightly cycloSPORINE modified, 100 mg, Oral, BID fenofibrate, 145 mg, Oral, Daily folic acid, 1,000 mcg, Oral, Daily gabapentin, 300 mg, Oral, Nightly hydrALAZINE, 100 mg, Oral, TID insulin lispro, 2-7 Units, Subcutaneous, 4x Daily AC & at Bedtime mycophenolate, 250 mg, Oral, Q12H NIFEdipine XL, 90 mg, Oral, BID pantoprazole, 40 mg, Oral, Q AM piperacillin-tazobactam, 4.5 g, Intravenous, Q12H sodium chloride, 10 mL, Intravenous, Q12H vancomycin (dosing per levels), , Does not apply, Daily Continuous Infusions:Pharmacy to dose vancomycin, PRN Meds:. acetaminophen albumin human albumin human ALPRAZolam senna-docusate sodium AND polyethylene glycol AND bisacodyl AND bisacodyl dextrose dextrose glucagon (human recombinant) heparin (porcine) HYDROmorphone melatonin naloxone ondansetron oxyCODONE-acetaminophen Pharmacy to dose vancomycin promethazine OR promethazine [COMPLETED] Insert Peripheral IV AND sodium chloride sodium chloride sodium chloride Assessment & Plan Assessment & Plan Active Hospital Problems Diagnosis POA Arm pain [M79.603] Yes Pneumonia [J18.9] Yes KIM (nonalcoholic steatohepatitis) [K75.81] Yes History of liver transplant [Z94.4] Not Applicable Immunosuppression [D84.9] Yes Type 2 diabetes mellitus [E11.9] Yes ESRD (end stage renal disease) [N18.6] Yes Resolved Hospital Problems No resolved problems to display. Brief Hospital Course to date: Aiden Stauffer Jr. is a 48 y.o. male with history of DM2, KIM cirrhosis status post liver transplant (2017) on chronic immunosuppression, ESRD on HD, prior discitis/epidural abscess status postlaminectomy and I&D of abscess (2019), included fistula graft (07/2023), who is scheduled for revision by Dr. Gruber, who presented for evaluation of worsening pain and swelling and AV fistula graft over the past 48 hours. Also found to have right lower lobe pneumonia. ESRD on HD Malfunctioning AVF with concern for Possible Infected graft -consult nephrology, continue HD MWF -Dr. Gruber planning to take patient for AVF ligation today -questionable infection, however is immunosuppressed, will have ID weigh in -Follow-up blood cultures, so far negative -started on broad spectrum ABX: vanc/zosyn for now RLL Pneumonia -has cough. No leucocytosis or fever, however, is immunosuppressed -resp PCR negative, blood cultures negative -continue ABX above -as needed pulmonary toilet -Will need to follow-up for resolution with repeat imaging outpatient H/o KIM cirrhosis s/p liver transplant -continue antirejection meds: CellCept, mycophenolate (verified patient's dosing) -Has been on entecavir, took last on 10/24 and takes weekly -follows at for transplant -new RLQ abdominal pain, get CT abd/pelvis T2DM - hold oral hypoglycemics - HbA1C 6.5 07/2023 - SSI with scheduled accu checks H/o discitis/epidural abscess (2019) - s/p laminectomy and I&D of abscess by Dr. Garnica. Followed by ID/Dr. Rodriguez for his complete course of ABX JC- CPAP as needed while inpatient Anemia- H/H stable and at baseline Morbid obesity- complicates all aspects of care Expected Discharge Location and Transportation: Home Expected Discharge Expected Discharge Date: 10/30/2023; Expected Discharge Time: DVT prophylaxis: Medical and mechanical DVT prophylaxis orders are present. AM-PAC 6 Clicks Score (PT): 24 (10/26/231999) CODE STATUS: Code Status and Medical Interventions: Ordered at: 10/26/23 0356 Level Of Support Discussed With: Patient Code Status (Patient has no pulse and is not breathing): CPR (Attempt to Resuscitate) Medical Interventions (Patient has pulse or is breathing): Full Support Michelle Shore DO 10/27/23 * Kody Wong MD - 10/27/2023 8:57 AM EDT LOS: 0 days Patient Care Team: Edgar Fournier MD as PCP - General (Family Medicine) Claudia Calles MD as Consulting Physician (Cardiology) Chief Complaint: Infected AV fistula. 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 Patient admitted due to pain and infection. Subjective Interval History: Patient seen on dialysis. Review of Systems: Patient denies shortness of breath, chest pain, dysuria, hematuria, nausea, vomiting. Objective Vital Sign Min/Max for last 24 hours Temp Min: 97.3 ??F (36.3 ??C) Max: 98 ??F (36.7 ??C) BP Min: 128/97 Max: 185/80 Pulse Min: 77 Max: 107 Resp Min: 14 Max: 18 SpO2 Min: 91 % Max: 96 % No data recorded No data recorded Flowsheet Rows Flowsheet Row First Filed Value Admission Height 175.3 cm (69 ) Documented at 10/25/20232227 Admission Weight 136 kg (300 lb) Documented at 10/25/20232227 No intake/output data recorded. I/O last 3 completed shifts: In: 100 [IV Piggyback:100] Out: 2660 Physical Exam: General Appearance: Alert, oriented, no obvious distress. morbid obesity Eyes: PER, EOMI. Neck: Supple no JVD. Lungs: Clear auscultation, no rales rhonchi's, equal chest movement, nonlabored. Heart: No gallop, murmur, rub, RRR. Abdomen: Soft, nontender, positive bowel sounds, obesity. Extremities: Trace edema bilateral lower extremity edema, no cyanosis. Neuro: No focal deficit, moving all extremities, alert oriented X 3 Left forearm AV fistula with areas of inflammation. Tunneled catheter right IJ. WBC WBC Date Value Ref Range Status 10/27/2023 4.56 3.40 - 10.80 10*3/mm3 Final 10/26/2023 5.45 3.40 - 10.80 10*3/mm3 Final 10/26/2023 5.33 3.40 - 10.80 10*3/mm3 Final HGB Hemoglobin Date Value Ref Range Status 10/27/2023 11.3 (L) 13.0 - 17.7 g/dL Final 10/26/2023 11.4 (L) 13.0 - 17.7 g/dL Final 10/26/2023 11.3 (L) 13.0 - 17.7 g/dL Final HCT Hematocrit Date Value Ref Range Status 10/27/2023 36.3 (L) 37.5 - 51.0 % Final 10/26/2023 37.5 37.5 - 51.0 % Final 10/26/2023 35.7 (L) 37.5 - 51.0 % Final Platlets No results found for: LABPLAT MCV MCV Date Value Ref Range Status 10/27/2023 102.0 (H) 79.0 - 97.0 fL Final 10/26/2023 103.6 (H) 79.0 - 97.0 fL Final 10/26/2023 99.7 (H) 79.0 - 97.0 fL Final Sodium Sodium Date Value Ref Range Status 10/27/2023 134 (L) 136 - 145 mmol/L Final 10/26/2023 141 136 - 145 mmol/L Final 10/26/2023 142 136 - 145 mmol/L Final Potassium Potassium Date Value Ref Range Status 10/27/2023 5.0 3.5 - 5.2 mmol/L Final 10/26/2023 4.5 3.5 - 5.2 mmol/L Final Comment: Slight hemolysis detected by analyzer. Result may be falsely elevated. 10/26/2023 5.4 (H) 3.5 - 5.2 mmol/L Final 10/26/2023 5.8 (H) 3.5 - 5.2 mmol/L Final Comment: Slight hemolysis detected by analyzer. Result may be falsely elevated. Chloride Chloride Date Value Ref Range Status 10/27/2023 95 (L) 98 - 107 mmol/L Final 10/26/2023 102 98 - 107 mmol/L Final 10/26/2023 102 98 - 107 mmol/L Final CO2 CO2 Date Value Ref Range Status 10/27/2023 27.0 22.0 - 29.0 mmol/L Final 10/26/2023 21.0 (L) 22.0 - 29.0 mmol/L Final 10/26/2023 22.0 22.0 - 29.0 mmol/L Final BUN BUN Date Value Ref Range Status 10/27/2023 41 (H) 6 - 20 mg/dL Final 10/26/2023 62 (H) 6 - 20 mg/dL Final 10/26/2023 60 (H) 6 - 20 mg/dL Final Creatinine Creatinine Date Value Ref Range Status 10/27/2023 6.81 (H) 0.76 - 1.27 mg/dL Final 10/26/2023 10.13 (H) 0.76 - 1.27 mg/dL Final 10/26/2023 9.74 (H) 0.76 - 1.27 mg/dL Final Calcium Calcium Date Value Ref Range Status 10/27/2023 9.0 8.6 - 10.5 mg/dL Final 10/26/2023 9.2 8.6 - 10.5 mg/dL Final 10/26/2023 8.8 8.6 - 10.5 mg/dL Final PO4 No results found for: CAPO4 Albumin Albumin Date Value Ref Range Status 10/27/2023 4.1 3.5 - 5.2 g/dL Final 10/26/2023 4.2 3.5 - 5.2 g/dL Final 10/26/2023 4.2 3.5 - 5.2 g/dL Final Magnesium Magnesium Date Value Ref Range Status 10/26/2023 1.9 1.6 - 2.6 mg/dL Final Uric Acid No results found for: URICACID Results Review: I reviewed the patient's new clinical results. [START ON 11/02/2023] entecavir, 0.5 mg, Oral, Weekly aspirin, 81 mg, Oral, Daily calcitriol, 0.25 mcg, Oral, Daily carBAMazepine, 200 mg, Oral, Nightly carvedilol, 25 mg, Oral, BID With Meals cinacalcet, 90 mg, Oral, Nightly cycloSPORINE modified, 100 mg, Oral, BID fenofibrate, 145 mg, Oral, Daily folic acid, 1,000 mcg, Oral, Daily gabapentin, 300 mg, Oral, Nightly hydrALAZINE, 100 mg, Oral, TID insulin lispro, 2-7 Units, Subcutaneous, 4x Daily AC & at Bedtime mycophenolate, 250 mg, Oral, Q12H NIFEdipine XL, 90 mg, Oral, BID pantoprazole, 40 mg, Oral, Q AM piperacillin-tazobactam, 4.5 g, Intravenous, Q12H sodium chloride, 10 mL, Intravenous, Q12H vancomycin (dosing per levels), , Does not apply, Daily Pharmacy to dose vancomycin, Medication Review: Reviewed Assessment & Plan Arm pain KIM (nonalcoholic steatohepatitis) History of liver transplant Immunosuppression Type 2 diabetes mellitus ESRD (end stage renal disease) Pneumonia 1. ESRD: On home hemodialysis initially via the AV fistula, now dialyzing with a tunneled catheter follow-up with Dr. Sky at [facility]. Patient last dialyzed on Monday. Dialyzes 4 times a week. 2. Infected AV fistula: Patient has been scheduled with Dr. Lynn for possible revision. 3. Metabolic acidosis: Due to renal failure. 4. Volume overload corrected with dialysis. 5. KIM: History of liver transplant. On cyclosporine. 6. Type 2 diabetes. 7. Secondary hyperparathyroidism: On Cinacalcet 8. Hyperphosphatemia: On phosphate binders. 9. Vitamin D deficiency: On oral vitamin D. 10. Hyperlipidemia: On statin Recommendations: Surgical evaluation done by Dr. Gruber, AV fistula will be ligated. Dialysis orders written. Home medication will be started as noted above. Renal diet with fluid restriction less than 1500 mL/day High risk complex patient with multiple medical problems. Kody Wong MD 10/27/23 08:58 EDT * Jennifer Davison MD - 10/26/2023 7:19 AM EDT Images from the original note were not included. [facility] Medicine Services ADMISSION FOLLOW-UP NOTE Patient admitted after midnight, H&P by my partner performed earlier on today's date reviewed. Interim findings, labs, and charting also reviewed. [facility] Hospital Problem List has been managed and updated to include any new diagnoses: Active Hospital Problems Diagnosis POA Arm pain [M79.603] Yes Pneumonia [J18.9] Yes KIM (nonalcoholic steatohepatitis) [K75.81] Yes History of liver transplant [Z94.4] Not Applicable Immunosuppression [D84.9] Yes Type 2 diabetes mellitus [E11.9] Yes ESRD (end stage renal disease) [N18.6] Yes Resolved Hospital Problems No resolved problems to display. ADDITIONAL PLAN: - detailed assessment and plan from admission reviewed - patient seen and examined 48-year-old male with history of DM2, KIM cirrhosis status post liver transplant (2017) on chronicimmunosuppression, ESRD on HD, prior discitis/epidural abscess status postlaminectomy and I&D of abscess (2019), included fistula graft (07/2023), who is scheduled for revision by Dr. Gruber, who presented for evaluation of worsening pain and swelling and AV fistula graft over the past 48 hours. Also found to have right lower lobe pneumonia. This patient's problems and plans were partially entered by my partner and updated as appropriate by me 10/26/23. ESRD on HD Malfunctioning AVF with concern for infected graft -initial K+ 5.8 with some hemolysis, no EKG changes -uses Xphozah 20mg BID at home (phos binder), not on formulary here -consult nephrology -consult general surgery -may need to involve ID, but will obtain surgery recs first -K 5.8 on admission s/p Lokelma; repeat lab 5.4, currently getting dialysis -Follow-up blood cultures -started on broad spectrum ABX: vanc/zosyn for now Pneumonia -has cough. No leucocytosis or fever, however, is immunosuppressed -continue with blood cultures, sputum culture pending -RPP negative -continue ABX above -as needed pulmonary toilet -Will need to follow-up for resolution with repeat imaging outpatient H/o KIM cirrhosis s/p liver transplant -continue antirejection meds: CellCept, mycophenolate (verified patient's dosing) -Has been on entecavir, took last on 10/24 and takes weekly -pharmacy consulted for medication reconciliation T2DM - hold oral hypoglycemics - HbA1C 6.5 07/2023 - SSI with scheduled accu checks H/o discitis/epidural abscess (2019) - s/p laminectomy and I&D of abscess by Dr. Garnica. Followed by ID/Dr. Rodriguez for his complete course of ABX JC- CPAP as needed while inpatient Anemia- H/H stable and at baseline Morbid obesity- complicates all aspects of care Expected Discharge Expected Discharge Date: 10/30/2023; Expected Discharge Time: Jennifer Davison MD 10/26/23 * Chito Lowe, PharmD - 10/26/2023 5:19 AM EDT Pharmacy Consult-Vancomycin Dosing Aiden Stauffer Jr. is a 48 y.o. male receiving vancomycin therapy. Mr. Stauffer has ESRD and is on hemodialysis Indication: SSTI Consulting Provider: hospitalist ID Consult: No Goal Trough: 10-15 Current Antimicrobial Therapy Anti-Infectives (From admission, onward) Ordered Dose/Rate Route Frequency Start Stop 10/26/23 0356 piperacillin-tazobactam (ZOSYN) 4.5 g IVPB in 100 mL NS MBP (CD) Ordering Provider: Larisa Fleminge G, DO 4.5 g over 4 Hours Intravenous Every 12 Hours 10/26/23 1600 10/31/23 0359 10/26/23 0356 piperacillin-tazobactam (ZOSYN) 4.5 g IVPB in 100 mL NS MBP (CD) Ordering Provider: Larisa Fleminge G, DO 4.5 g over 30 Minutes Intravenous Once 10/26/23 0410 10/26/23 0350 Pharmacy to dose vancomycin Ordering Provider: Beulah Fleming DO Does not apply Continuous PRN 10/26/23 0349 10/31/23 0348 10/26/23 0305 vancomycin 2750 mg/500 mL 0.9% NS IVPB ([facility]) Ordering Provider: Terry Burgess MD 20 mg/kg ?? 136 kg over 165 Minutes Intravenous Once 10/26/23 0321 Allergies Allergies as of 10/25/2023 - Reviewed 10/25/2023 Allergen Reaction Noted Tacrolimus Other (See Comments) and Unknown - High Severity 03/02/2021 Codeine Anxiety and Unknown - Low Severity 06/02/2014 Calcitriol GI Intolerance 09/20/2023 Labs Results from last 7 days Lab Units 10/26/23 0033 BUN mg/dL 60* CREATININE mg/dL 9.74* Results from last 7 days Lab Units 10/26/23 0033 10/23/23 1011 WBC 10*3/mm3 5.33 3.8 Evaluation of Dosing Last Dose Received in the ED/Outside Facility: N/A Is Patient on Dialysis or Renal Replacement: No Ht - 175.3 cm (69 ) Wt - 136 kg (300 lb) Estimated Creatinine Clearance: 12.6 mL/min (A) (by C-G formula based on SCr of 9.74 mg/dL (H)). Intake & Output (last 3 days) None Microbiology and Radiology Microbiology Results (last 10 days) No results found for the last 240 hours. Vancomycin Levels: Assessment/Plan: 1. Will give loading dose of vancomycin 2750 mg IV once 2. Pharmacy will continue to follow and order a vancomycin dose after each dialysis session. 3. Pharmacy will order a vancomycin level prior to the 2nd or 3rd inpatient dialysis session. Chito Lowe, PharmD, [facility] 10/26/2023 05:16 EDT documented in this encounter H&P Notes * Brandy Feliz APRN - 11/01/2023 12:22 PM EDT H&P reviewed. The patient was examined and there are no changes to the H&P. Temporary dialysis catheter placement. CBC & INR reviewed. Cosigned by Victor Manuel Castro MD at 11/01/2023 3:02 PM EDT Associated attestation - Victor Manuel Castro MD - 11/01/2023 3:02 PM EDT Agreed. Source Note - Mark Edwards MD - 10/31/2023 6:36 PM EDT LOS: 4 days Patient Care Team: Edgar Fournier MD as PCP - General (Family Medicine) Claudia Calles MD as Consulting Physician (Cardiology) Chief Complaint: Infected AV fistula. 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 Patient admitted due to pain and infection. Subjective Seen and examined at bedside. No overnight issues. Reports feeling better. Tunneled dialysis catheter removed yesterday. Interval History: AV fistula ligation done 10/27/[address] Gruber Blood cultures positive. Patient getting antibiotic. Objective Vital Sign Min/Max for last 24 hours Temp Min: 99.7 ??F (37.6 ??C) Max: 99.7 ??F (37.6 ??C) BP Min: 103/56 Max: 152/77 Pulse Min: 74 Max: 89 Resp Min: 14 Max: 20 SpO2 Min: 91 % Max: 95 % No data recorded No data recorded Flowsheet Rows Flowsheet Row First Filed Value Admission Height 175.3 cm (69 ) Documented at 10/25/20232227 Admission Weight 136 kg (300 lb) Documented at 10/25/20232227 I/O this shift: In: 600 [P.O.:600] Out: - I/O last 3 completed shifts: In: 360 [P.O.:360] Out: 3830 Physical Exam: General Appearance: Morbid obesity male Eyes: PER, EOMI. Neck: Supple no JVD. Lungs: Clear auscultation, no rales rhonchi's, equal chest movement, nonlabored. Heart: No gallop, murmur, rub, RRR. Abdomen: Soft, nontender, positive bowel sounds, obesity. Extremities: 1+ bilateral lower extremity edema no cyanosis. Neuro: No focal deficit, moving all extremities, alert oriented X 3 Left forearm AV fistula with areas of inflammation. No bruit WBC WBC Date Value Ref Range Status 10/31/2023 4.16 3.40 - 10.80 10*3/mm3 Final 10/30/2023 5.35 3.40 - 10.80 10*3/mm3 Final 10/29/2023 7.31 3.40 - 10.80 10*3/mm3 Final HGB Hemoglobin Date Value Ref Range Status 10/31/2023 10.5 (L) 13.0 - 17.7 g/dL Final 10/30/2023 9.6 (L) 13.0 - 17.7 g/dL Final 10/29/2023 11.2 (L) 13.0 - 17.7 g/dL Final HCT Hematocrit Date Value Ref Range Status 10/31/2023 34.5 (L) 37.5 - 51.0 % Final 10/30/2023 32.4 (L) 37.5 - 51.0 % Final 10/29/2023 35.4 (L) 37.5 - 51.0 % Final Platlets No results found for: LABPLAT MCV MCV Date Value Ref Range Status 10/31/2023 101.8 (H) 79.0 - 97.0 fL Final 10/30/2023 108.4 (H) 79.0 - 97.0 fL Final 10/29/2023 102.6 (H) 79.0 - 97.0 fL Final Sodium Sodium Date Value Ref Range Status 10/31/2023 131 (L) 136 - 145 mmol/L Final 10/30/2023 132 (L) 136 - 145 mmol/L Final 10/29/2023 132 (L) 136 - 145 mmol/L Final Potassium Potassium Date Value Ref Range Status 10/31/2023 4.5 3.5 - 5.2 mmol/L Final Comment: Slight hemolysis detected by analyzer. Result may be falsely elevated. 10/30/2023 5.7 (H) 3.5 - 5.2 mmol/L Final Comment: Slight hemolysis detected by analyzer. Result may be falsely elevated. 10/29/2023 4.6 3.5 - 5.2 mmol/L Final Chloride Chloride Date Value Ref Range Status 10/31/2023 94 (L) 98 - 107 mmol/L Final 10/30/2023 92 (L) 98 - 107 mmol/L Final 10/29/2023 91 (L) 98 - 107 mmol/L Final CO2 CO2 Date Value Ref Range Status 10/31/2023 20.0 (L) 22.0 - 29.0 mmol/L Final 10/30/2023 19.0 (L) 22.0 - 29.0 mmol/L Final 10/29/2023 19.0 (L) 22.0 - 29.0 mmol/L Final BUN BUN Date Value Ref Range Status 10/31/2023 39 (H) 6 - 20 mg/dL Final 10/30/2023 55 (H) 6 - 20 mg/dL Final 10/29/2023 35 (H) 6 - 20 mg/dL Final Creatinine Creatinine Date Value Ref Range Status 10/31/2023 7.99 (H) 0.76 - 1.27 mg/dL Final 10/30/2023 10.39 (H) 0.76 - 1.27 mg/dL Final 10/29/2023 7.90 (H) 0.76 - 1.27 mg/dL Final Calcium Calcium Date Value Ref Range Status 10/31/2023 8.7 8.6 - 10.5 mg/dL Final 10/30/2023 8.1 (L) 8.6 - 10.5 mg/dL Final 10/29/2023 8.8 8.6 - 10.5 mg/dL Final PO4 No results found for: CAPO4 Albumin No results found for: ALBUMIN Magnesium No results found for: MG Uric Acid No results found for: URICACID Results Review: I reviewed the patient's new clinical results. [START ON 11/02/2023] entecavir, 0.5 mg, Oral, Weekly albumin human, , , aspirin, 81 mg, Oral, Daily calcitriol, 0.25 mcg, Oral, Daily carBAMazepine, 200 mg, Oral, Nightly carvedilol, 25 mg, Oral, BID With Meals cefTRIAXone, 2,000 mg, Intravenous, Q24H cinacalcet, 90 mg, Oral, Nightly cycloSPORINE modified, 100 mg, Oral, BID fenofibrate, 145 mg, Oral, Daily folic acid, 1,000 mcg, Oral, Daily gabapentin, 300 mg, Oral, Nightly guaiFENesin, 1,200 mg, Oral, Q12H hydrALAZINE, 100 mg, Oral, TID insulin lispro, 2-7 Units, Subcutaneous, 4x Daily AC & at Bedtime mycophenolate, 250 mg, Oral, Q12H NIFEdipine XL, 90 mg, Oral, BID pantoprazole, 40 mg, Oral, Q AM sodium chloride, 10 mL, Intravenous, Q12H Medication Review: Reviewed Assessment & Plan Arm pain KIM (nonalcoholic steatohepatitis) History of liver transplant Immunosuppression Type 2 diabetes mellitus ESRD (end stage renal disease) Pneumonia 1. ESRD: On home hemodialysis initially via the AV fistula, now dialyzing with a tunneled catheter follow-up with Dr. Sky at [facility]. Dialyzes 4 times a week. 2. Infected AV fistula: AV fistula ligated 10/27/2023. Antibiotics per ID. 3. Metabolic acidosis: Due to renal failure. 4. Volume overload: corrected with dialysis. 5. KIM: History of liver transplant. On cyclosporine. 6. Type 2 diabetes. 7. Secondary hyperparathyroidism: On Cinacalcet 8. Hyperphosphatemia: On phosphate binders. 9. Vitamin D deficiency: On oral vitamin D. 10. Hyperlipidemia: On statin Recommendations: Hemodialysis yesterday. HD catheter removed per ID. No indication for dialysis today. In hospital we will continue Monday dialysis schedule. Will evaluate for dialysis on daily basis. Needs dialysis catheter. Hyperkalemia/metabolic acidosis: Improved with dialysis. Renal diet with fluid restriction less than 1500 mL/day High risk complex patient with multiple medical problems. Mark Edwards MD 10/31/23 18:36 EDT * Beulah Fleming DO - 10/26/2023 4:08 AM EDT Images from the original note were not included. [facility] Medicine Services HISTORY AND PHYSICAL Patient Name: Aiden Stauffer . : 1975 Primary Care Physician: Edgar Fournier MD Date of admission: 10/25/2023 Subjective Subjective Chief Complaint: Pain at fistula sight HPI: Aiden Stauffer Jr. is a 48 y.o. male with a past medical history significant for T2DM, KIM cirrhosis s/p liver transplant in 2017 on chronic immunosuppression, ESRD on HD, h/o discitis/epidural abscess s/p laminectomy and I&D of abscess in 2019. Presents today with complaints of pain at fistula site on left upper extremity. He was admitted in July secondary to occlusion of the graft.He is scheduled for revision by Dr. Gruber. Patient has had some worsening pain and swelling in that graft over the last 48 hours. Symptom are concerning for worsening inclusion or possible infection at the graft site. States his home health nurse instructed him to come in for further evaluation an d treatment Currently there are no complaints of fever, cough, congestion, SOB, or chest pain. No falls or injury. Will admit to hosptialist service. Review of Systems Personal History Past Medical History: Diagnosis Date ??? Diabetes mellitus ??? Dialysis patient ??? Hemorrhage THROAT VARICIES ??? Kidney failure ??? Liver transplanted Past Surgical History: Procedure Laterality Date ??? ARTERIOVENOUS FISTULA Left 2019 ??? CARDIAC CATHETERIZATION times 2022 ??? CHOLECYSTECTOMY ??? ENDOSCOPY N/A 05/04/2020 Procedure: ESOPHAGOGASTRODUODENOSCOPY; Surgeon: Dewey Betancourt MD; Location: [facility] ENDOSCOPY; Service: Gastroenterology; Laterality: N/A; ??? LUMBAR LAMINECTOMY DISCECTOMY DECOMPRESSION N/A 04/29/2020 Procedure: LUMBAR LAMINECTOMY DISCECTOMY DECOMPRESSION POSTERIOR L4-5; Surgeon: Yinka Garnica MD; Location: [facility] OR; Service: Neurosurgery; Laterality: N/A; Family History: family history is not on file. Social History: reports that he has never smoked. He has never been exposed to tobacco smoke. He has never used smokeless tobacco. He reports that he does not drink alcohol and does not use drugs. Social History Social History Narrative ??? Not on file Medications: ALPRAZolam, FreeStyle Leonel 2 Sensor, NIFEdipine CC, Syringe/Needle (Disp), Tenapanor HCl (CKD), Testosterone Cypionate, aspirin, azithromycin, calcitriol, calcium acetate, carBAMazepine, carvedilol,cephalexin, cholecalciferol, cinacalcet, cycloSPORINE modified, doxazosin, entecavir, fenofibrate micronized, folic acid, gabapentin, hydrALAZINE, insulin glargine, insulin regular, methocarbamol, montelukast, ondansetron ODT, pantoprazole, and vitamin D Allergies Allergen Reactions ??? Tacrolimus Other (See Comments) and Unknown - High Severity Anxious feeling and muscle jerking. TOLERATED ENVARSUS BETTER THAN PROGRAF. ??? Codeine Anxiety and Unknown - Low Severity ??? Calcitriol GI Intolerance Objective Objective Vital Signs: Temp: [98.6 ??F (37 ??C)] 98.6 ??F (37 ??C) Heart Rate: [82-101] 93 Resp: [26] 26 BP: (175-220)/(109-115) 191/109 Flow (L/min): [4] 4 Physical Exam Constitutional: Awake, alert Eyes: PERRLA, sclerae anicteric, no conjunctival injection HENT: NCAT, mucous membranes moist Neck: Supple, no thyromegaly, no lymphadenopathy, trachea midline Respiratory: Clear to auscultation bilaterally, nonlabored respirations Cardiovascular: RRR, no murmurs, rubs, or gallops, palpable pedal pulses bilaterally Gastrointestinal: Positive bowel sounds, soft, nontender, nondistended Musculoskeletal: No bilateral ankle edema, no clubbing or cyanosis to extremities Psychiatric: Appropriate affect, cooperative Neurologic: Oriented x 3, strength symmetric in all extremities, Cranial Nerves grossly intact to confrontation, speech clear Skin: LUE redness and swelling at at fistula sight. TTP Result Review: I have personally reviewed the results from the time of this admission to 10/26/2023 04:08 EDT and agree with these findings: [x] Laboratory list / accordion [] Microbiology [] Radiology [] EKG/Telemetry [] Cardiology/Vascular [] Pathology [x] Old records [] Other: Most notable findings include: potassium 5.8. cr 9.78. BUN 60. H/H 11.3 and 35.7. Cxr shows pneumonia LAB RESULTS: Lab 10/26/23 0033 10/23/23 1011 WBC 5.33 3.8 HEMOGLOBIN 11.3* 11.6* HEMATOCRIT 35.7* 35.4* PLATELETS 250 219 NEUTROS ABS 3.38 2,557 IMMATURE GRANS (ABS) 0.19* -- LYMPHS ABS 1.09 -- MONOS ABS 0.46 110* EOS ABS 0.18 144 MCV 99.7* 99.5 PROCALCITONIN 0.44* -- LACTATE 0.7 -- PROTIME 14.2 -- APTT 29.0* -- Lab 10/26/23 0033 SODIUM 142 POTASSIUM 5.8* CHLORIDE 102 CO2 22.0 ANION GAP 18.0* BUN 60* CREATININE 9.74* EGFR 6.0* GLUCOSE 104* CALCIUM 8.8 MAGNESIUM 1.9 Lab 10/26/23 0033 10/23/23 1011 TOTAL PROTEIN 7.0 6.8 ALBUMIN 4.2 4.2 GLOBULIN 2.8 -- ALT (SGPT) 8 9 AST (SGOT) 14 13 BILIRUBIN 0.3 0.4 INDIRECT BILIRUBIN -- 0.31 BILIRUBIN DIRECT -- 0.09 ALK PHOS 134* 118 Lab 10/26/23 0033 PROTIME 14.2 INR 1.08 Brief Urine Lab Results None Microbiology Results (last 10 days) No results found for the last 240 hours. XR Chest 1 View Result Date: 10/25/2023 XR CHEST 1 VW Date of Exam: 10/25/2023 11:00 PM EDT Indication: cough Comparison: 08/02/2023. Findings: Patchy airspace disease is seen within the right lower lobe. Right internal jugular PermCath with the tip in the upper SVC.. No pleural fluid. No pneumothorax. The pulmonary vasculature appears within normal limits. The cardiac and mediastinal silhouette appear unremarkable. No acute osseous abnormality identified. Impression: Impression: Right lower lobe pneumonia. Follow-up to resolution recommended. Electronically Signed: Ashli Abreu MD 10/25/2023 11:22 PM EDT Workstation ID: [id number] Assessment & Plan Assessment & Plan Arm pain Pneumonia KIM (nonalcoholic steatohepatitis) History of liver transplant Immunosuppression Type 2 diabetes mellitus ESRD (end stage renal disease) ESRD on HD Malfunctioning AVF with concern for infected graft - initial K+ 5.8, no EKG changes - uses Xphozah 20mg BID at home (phos binder), not on formulary here - consult to nephrology - consult to general surgery - K 5.8 today, give Lokelma - blood cultures - started on broad spectrum ABX Pneumonia - has cough. No leucocytosis or fever - continue with blood cultures, sputum culture, COVID PCR - continue ABX above - as needed pulmonary toilet -Will need to follow-up for resolution. Has had right-sided pneumonia diagnosed outpatient over thepast month. Would benefit from contrasted CT to rule out underlying mass H/o KIM cirrhosis s/p liver transplant - continue antirejection meds -Has been on entecavir, nursing communication order placed to verify if this is an active med T2DM - hold oral hypoglycemics - HbA1C 6.5 07/2023. Repeat - SSI with scheduled accu checks H/o discitis/epidural abscess (2019) - s/p laminectomy and I&D of abscess by Dr. Garnica. Followed by ID/Dr. Rodriguez for his complete course of ABX JC - CPAP as needed while inpatient Anemia - H/H stable and at baseline Morbid obesity - complicates all aspects of care DVT prophylaxis: mechanical CODE STATUS: full code Level Of Support Discussed With: Patient Code Status (Patient has no pulse and is not breathing): CPR (Attempt to Resuscitate) Medical Interventions (Patient has pulse or is breathing): Full Support Expected Discharge TBD This note has been completed as part of a split-shared workflow. Signature: Electronically signed by Jayce Irizarry PA-C, 10/26/23, 4:08 AM EDT Attending Admission Attestation I have performed an independent [id number] diagnostic evaluation including performing an independent physical examination. I approve of the documented plan of care above that was reviewed and developed with the advanced doctor of nurse anesthesia practice (APC) and take responsibility for that plan along with itsassociated risks. I have updated the HPI as appropriate. Brief HPI This is a 48-year-old male patient with a PMH significant for Kim cirrhosis s/p liver transplant, ESRD on HD, history of discitis/epidural abscess s/p laminectomy (2019), diabetes mellitus type 2 who comes to the ED due to pain at fistula site. Patient has had occlusion of his AV fistula/infectionand as such has not been using his fistula since 07/2023 with a functioning tunneled catheter. 3 days ago he began to notice increased redness to the fistula site. The redness has became more severe since then. He denies fever, chills, cough, vomiting, diarrhea. Attending Physical Exam: Temp: [98.6 ??F (37 ??C)] 98.6 ??F (37 ??C) Heart Rate: [82-101] 93 Resp: [26] 26 BP: (175-220)/(109-115) 191/109 Flow (L/min): [4] 4 Constitutional: Awake, alert Eyes: PERRLA, sclerae anicteric, no conjunctival injection HENT: NCAT, mucous membranes moist Neck: Supple, no thyromegaly, no lymphadenopathy, trachea midline Respiratory: Distant breath sounds, nonlabored respirations Cardiovascular: RRR, no murmurs, rubs, or gallops, palpable pedal pulses bilaterally. Fistula to left upper extremity tracking distally to wrist Gastrointestinal: Positive bowel sounds, soft, nontender, nondistended Musculoskeletal: Trace bilateral ankle edema, no clubbing or cyanosis to extremities Psychiatric: Appropriate affect, cooperative Neurologic: Oriented x 3, strength symmetric in all extremities, Cranial Nerves grossly intact to confrontation, speech clear Skin: Fistula to left arm with 2 areas of palpable induration, erythema Result Review: I have personally reviewed the results from the time of this admission to 10/26/2023 06:16 EDT and agree with these findings: [x] Laboratory list / accordion [] Microbiology [x] Radiology [x] EKG/Telemetry [x] Cardiology/Vascular [] Pathology [x] Old records Assessment and Plan: See assessment and plan documented by APC above and updated/edited by me as appropriate. Beulah Fleming DO 10/26/23 documented in this encounter Procedure Notes * Kody Wong MD - 10/26/2023 10:18 AM EDTAssociated Order(s): HEMODIALYSIS INPATIENT Hemodialysis visit notes: Using tunneled catheter at this time. Patient tolerating well. Vital signs stable. High risk complex patient with multiple medical problems. Case discussed with RN in detail. documented in this encounter Consult Notes * Scar Richardson MD - 10/27/2023 2:09 PM EDTAssociated Order(s): IP CONSULT TO INFECTIOUS DISEASES Images from the original note were not included. . INFECTIOUS DISEASE CONSULT/INITIAL HOSPITAL VISIT Aiden Stauffer Jr. 1975 [id number] Date of Consult: 10/27/2023 Admission Date: 10/25/2023 Requesting Provider: Michelle Shore DO Evaluating Physician: Scar Richardson MD Reason for Consultation: Infected AVF, immunocompromised patient. History of present illness: Patient is a 48 y.o. male with h/o T2DM, ESRD/HD/temporary dialysis cath 08/11/23/LUE AVF malfunctioning since 08/10/23, morbid obesity, KIM liver cirrhosis s/p liver transplant 2017 on chronic immunosuppression with Cyclosporine and CellCept/Hep B liver/on Entecavir, on and discitis/epidural abscess/laminectomy/I and D 2019 (treated by Dr. Cayetano Rodriguez) who was admitted to [facility] on 10/24 for pain at LUE AVF site that has been ongoing for 4 months. 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 He was treated with Zosyn and Vancomycin.He was discharged home on oral cefuroxime and oral doxycycline for 4 days. He returned to [facility] ED on 10/24 for worsening pain, swelling, and redness at LUE AVF site. He was scheduled for a revision by Dr. Gruber. He was afebrile with intermittent hypertension. He remains on room air. Initial labs were WBC 5300 with 67% segs, PCT 0.44, lactic acid 0.7, creatinine 9.74, and K 5.8. A respiratory panel PCR was negative. A MRSA PCR was negative. Blood cultures are negative todate. A CXR on 10/25/23 showed RLL pneumonia although not extremely impressive. He is currently on Zosyn and Vancomycin. ID was asked to evaluate and manage his antibiotic therapy. Past Medical History: Diagnosis Date Diabetes mellitus Dialysis patient Hemorrhage THROAT VARICIES Kidney failure Liver transplanted Past Surgical History: Procedure Laterality Date ARTERIOVENOUS FISTULA Left 2019 CARDIAC CATHETERIZATION times 2022 CHOLECYSTECTOMY ENDOSCOPY N/A 05/04/2020 Procedure: ESOPHAGOGASTRODUODENOSCOPY; Surgeon: Dewey Betancourt MD; Location: [facility] ENDOSCOPY; Service: Gastroenterology; Laterality: N/A; LUMBAR LAMINECTOMY DISCECTOMY DECOMPRESSION N/A 04/29/2020 Procedure: LUMBAR LAMINECTOMY DISCECTOMY DECOMPRESSION POSTERIOR L4-5; Surgeon: Yinka Garnica MD; Location: [facility] OR; Service: Neurosurgery; Laterality: N/A; History reviewed. No pertinent family history. Social History Socioeconomic History Marital status: Tobacco Use Smoking status: Never Passive exposure: Never Smokeless tobacco: Never Vaping Use Vaping status: Never Used Substance and Sexual Activity Alcohol use: Never Drug use: Never Sexual activity: Defer Allergies Allergen Reactions Tacrolimus Other (See Comments) and Unknown - High Severity Anxious feeling and muscle jerking. TOLERATED ENVARSUS BETTER THAN PROGRAF. Codeine Anxiety and Unknown - Low Severity Calcitriol GI Intolerance Medication: Current Facility-Administered Medications: [START ON 11/02/2023] *Patient Supplied* entecavir (BARACLUDE) tablet 0.5 mg, 0.5 mg, Oral, Weekly, Jennifer Davison MD [Transfer Hold] acetaminophen (TYLENOL) tablet 650 mg, 650 mg, Oral, Q4H PRN, Jayce Irizarry PA-C, 650 mg at 10/27/23 1329 albumin human 25 % IV SOLN - ADS Override Pull, , , , [Transfer Hold] albumin human 25 % IV SOLN 12.5 g, 12.5 g, Intravenous, PRN, Kody Wong MD,25 g at 10/27/23 1307 [Transfer Hold] ALPRAZolam (XANAX) tablet 0.5 mg, 0.5 mg, Oral, Daily PRN, Jennifer Davison MD, 0.5 mgat 10/26/23 1521 [Transfer Hold] aspirin chewable tablet 81 mg, 81 mg, Oral, Daily, Jayce Irizarry PA-C, 81 mg at 10/27/23 0821 [Transfer Hold] sennosides-docusate (PERICOLACE) 8.6-50 MG per tablet 2 tablet, 2 tablet, Oral, BIDPRN AND [Transfer Hold] polyethylene glycol (MIRALAX) packet 17 g, 17 g, Oral, Daily PRN AND [Transfer Hold] bisacodyl (DULCOLAX) EC tablet 5 mg, 5 mg, Oral, Daily PRN AND [Transfer Hold]bisacodyl (DULCOLAX) suppository 10 mg, 10 mg, Rectal, Daily PRN, Jayce Irizarry PA-C [Transfer Hold] calcitriol (ROCALTROL) capsule 0.25 mcg, 0.25 mcg, Oral, Daily, Jayce Irizarry, PA-C, 0.25 mcg at 10/27/23821 carBAMazepine (TEGretol) tablet 200 mg, 200 mg, Oral, Nightly, Jayce Irizarry, PA-C, 200 mg at 10/26/232308 carvedilol (COREG) tablet 25 mg, 25 mg, Oral, BID With Meals, Jayce Irizarry PA-C, 25 mg at 10/27/23820 [Transfer Hold] cinacalcet (SENSIPAR) tablet 90 mg, 90 mg, Oral, Nightly, Jayce Irizarry, PA-C, 90 mg at 10/26/232308 [Transfer Hold] cycloSPORINE modified (NEORAL) capsule 100 mg, 100 mg, Oral, BID, Jennifer Davison MD,100 mg at 10/27/23822 [Transfer Hold] dextrose (D50W) (25 g/50 mL) IV injection 25 g, 25 g, Intravenous, Q15 Min PRN, Bernadette Beulah G, DO [Transfer Hold] dextrose (GLUTOSE) oral gel 15 g, 15 g, Oral, Q15 Min PRN, Bernadette, Beulah G, DO [Transfer Hold] fenofibrate (TRICOR) tablet 145 mg, 145 mg, Oral, Daily, Jayce Irizarry, PA-C, 145 mg at 10/27/23822 [Transfer Hold] folic acid (FOLVITE) tablet 1,000 mcg, 1,000 mcg, Oral, Daily, Jayce Irizarry, PA-C, 1,000 mcg at 03/15/24 0821 gabapentin (NEURONTIN) capsule 300 mg, 300 mg, Oral, Nightly, Beulah Fleming, , 300 mg at 10/26/23 214 [Transfer Hold] glucagon (GLUCAGEN) injection 1 mg, 1 mg, Intramuscular, Q15 Min PRN, Silva Fleming DO [Transfer Hold] heparin (porcine) injection 2,000 Units, 2,000 Units, Intracatheter, PRN, Kody Wong MD, 2,000 Units at 10/26/23 1357 hydrALAZINE (APRESOLINE) tablet 100 mg, 100 mg, Oral, TID, Jayce Irizarry PA-C, 100 mg at 10/27/23 0438 [Transfer Hold] HYDROmorphone (DILAUDID) injection 0.5 mg, 0.5 mg, Intravenous, Q2H PRN, Michelle Shore DO [Transfer Hold] Insulin Lispro (humaLOG) injection 2-7 Units, 2-7 Units, Subcutaneous, 4x Daily AC & at Bedtime, Beulah Fleming DO, 3 Units at 10/26/23 2144 [Transfer Hold] melatonin tablet 5 mg, 5 mg, Oral, Nightly PRN, Jayce Irizarry PA-C [Transfer Hold] mycophenolate (CELLCEPT) capsule 250 mg, 250 mg, Oral, Q12H, Jennifer Davison MD, 250 mg at 10/27/23 0823 [Transfer Hold] naloxone (NARCAN) injection 0.4 mg, 0.4 mg, Intravenous, PRN, Beulah Fleming DO NIFEdipine XL (PROCARDIA XL) 24 hr tablet 90 mg, 90 mg, Oral, BID, Jayce Irizarry PA-C, 90 mg at 10/26/23 2143 [Transfer Hold] ondansetron (ZOFRAN) injection 4 mg, 4 mg, Intravenous, Q6H PRN, Jennifer Davison MD, 4 mg at 10/27/23 0821 [Transfer Hold] oxyCODONE-acetaminophen (PERCOCET) 5-325 MG per tablet 1 tablet, 1 tablet, Oral, Q6H PRN, Jennifer Davison MD, 1 tablet at 10/26/23 2342 [Transfer Hold] pantoprazole (PROTONIX) EC tablet 40 mg, 40 mg, Oral, Q AM, Juan C, Wildernicia L, PA-C, 40 mg at 10/27/23 0438 Pharmacy to dose vancomycin, , Does not apply, Continuous PRN, Bernadette, Beulah G, DO piperacillin-tazobactam (ZOSYN) 4.5 g IVPB in 100 mL NS MBP (CD), 4.5 g, Intravenous, Q12H, Bernadette,Beulah G, DO, Currently Infusing at 10/27/23 0811 [Transfer Hold] promethazine (PHENERGAN) tablet 12.5 mg, 12.5 mg, Oral, Q6H PRN, 12.5 mg at 10/27/23 1007 OR [Transfer Hold] promethazine (PHENERGAN) suppository 12.5 mg, 12.5 mg, Rectal, Q6H PRN, Bernadette, Beulah G, DO [COMPLETED] Insert Peripheral IV, , , Once AND [Transfer Hold] sodium chloride 0.9 % flush 10 mL, 10 mL, Intravenous, PRN, Terry Burgess MD [Transfer Hold] sodium chloride 0.9 % flush 10 mL, 10 mL, Intravenous, Q12H, Wilder Irizarrynicia L, PA-C, 10 mL at 10/27/23 0824 [Transfer Hold] sodium chloride 0.9 % flush 10 mL, 10 mL, Intravenous, PRN, Juan C, Wildernicia L, PA-C [Transfer Hold] sodium chloride 0.9 % infusion 40 mL, 40 mL, Intravenous, PRN, Wilder Irizarrynicia L, PA-C vancomycin (dosing per levels), , Does not apply, Daily, Chito Lowe, PharmD Antibiotics: Anti-Infectives (From admission, onward) Ordered Dose/Rate Route Frequency Start Stop 10/26/23 1215 *Patient Supplied* entecavir (BARACLUDE) tablet 0.5 mg Ordering Provider: Jennifer Davison MD 0.5 mg Oral Weekly 11/02/23 0900 10/26/23 0519 vancomycin (dosing per levels) Ordering Provider: Chito Lowe, PharmD Does not apply Daily 10/27/23 0900 10/31/23 0859 10/26/23 0356 piperacillin-tazobactam (ZOSYN) 4.5 g IVPB in 100 mL NS MBP (CD) Ordering Provider: Beulah Fleming DO 4.5 g over 4 Hours Intravenous Every 12 Hours 10/26/23 1600 10/31/23 0359 10/26/23 0356 piperacillin-tazobactam (ZOSYN) 4.5 g IVPB in 100 mL NS MBP (CD) Ordering Provider: Beulah Fleming DO 4.5 g over 30 Minutes Intravenous Once 10/26/23 0410 10/26/23 0641 10/26/23 0350 Pharmacy to dose vancomycin Ordering Provider: Beulah Fleming DO Does not apply Continuous PRN 10/26/23 0349 10/31/23 0348 10/26/23 0305 vancomycin 2750 mg/500 mL 0.9% NS IVPB ([facility]) Ordering Provider: Terry Burgess MD 20 mg/kg ?? 136 kg over 165 Minutes Intravenous Once 10/26/23 0321 10/26/23 0941 Review of Systems: Constitutional-- No Fever, chills or sweats. Appetite good, and no malaise. No fatigue. HEENT-- No new vision, hearing or throat complaints. No epistaxis or oral sores. Denies odynophagiaor dysphagia. No headache, photophobia or neck stiffness. CV-- No chest pain, palpitation or syncope Resp-- No SOB/+ nonproductive cough/no Hemoptysis GI- + chronic nausea, no vomiting, or diarrhea. No hematochezia, melena, or hematemesis. Denies jaundice + chronic liver disease/liver transplant. -- No dysuria, hematuria, or flank pain. Anuric Lymph- no swollen lymph nodes in neck/axilla or groin. Heme- No active bruising or bleeding; no Hx of DVT or PE. MS-- Swelling, pain, and redness at AVF site of LUE. No new back pain. Neuro-- No acute focal weakness or numbness in the arms or legs. No seizures. Skin--No rashes or lesions Physical Exam: Vital Signs Temp (24hrs), Av.8 ??F (36.6 ??C), Min:97.3 ??F (36.3 ??C), Max:98 ??F (36.7 ??C) Temp Min: 97.3 ??F (36.3 ??C) Max: 98 ??F (36.7 ??C) BP Min: 90/59 Max: 160/83 Pulse Min: 70 Max: 107 Resp Min: 18 Max: 19 SpO2 Min: 86 % Max: 96 % GENERAL: Awake and alert, in no acute distress. HEENT: Normocephalic, atraumatic. PERRL. EOMI. No conjunctival injection. No icterus. Oropharynx clear without evidence of thrush or exudate. NECK: Supple without nuchal rigidity. No mass. LYMPH: No cervical, axillary or inguinal lymphadenopathy. HEART: RRR; No murmur, rubs, gallops. LUNGS: Clear to auscultation bilaterally without wheezing. Normal respiratory effort. Nonlabored. ABDOMEN: Soft, nontender, nondistended. Positive bowel sounds. No rebound or guarding. NO mass or HSM. Obese EXT: No cyanosis, clubbing or edema. No cord. Left forearm AVF site with erythema, warmth, some tenderness. : Without Anders catheter. MSK: No joint effusions or erythema SKIN: Warm and dry without cutaneous eruptions on Inspection/palpation. NEURO: Oriented to PPT. Motor 5/5 strength PSYCHIATRIC: Normal insight and judgment. Cooperative with PE Laboratory Data Results from last 7 days Lab Units 10/27/23 0500 10/26/23 0703 10/26/23 0033 WBC 10*3/mm3 4.56 5.45 5.33 HEMOGLOBIN g/dL 11.3* 11.4* 11.3* HEMATOCRIT % 36.3* 37.5 35.7* PLATELETS 10*3/mm3 233 235 250 Results from last 7 days Lab Units 10/27/23 0500 SODIUM mmol/L 134* POTASSIUM mmol/L 5.0 CHLORIDE mmol/L 95* CO2 mmol/L 27.0 BUN mg/dL 41* CREATININE mg/dL 6.81* GLUCOSE mg/dL 173* CALCIUM mg/dL 9.0 Results from last 7 days Lab Units 10/27/23 0500 10/26/23 0033 10/23/23 1011 ALK PHOS U/L 129* < > 118 BILIRUBIN mg/dL 0.4 < > 0.4 BILIRUBIN DIRECT mg/dL -- -- 0.09 ALT (SGPT) U/L 8 < > 9 AST (SGOT) U/L 12 < > 13 < > = values in this interval not displayed. Results from last 7 days Lab Units 10/26/23 0033 LACTATE mmol/L 0.7 Estimated Creatinine Clearance: 18 mL/min (A) (by C-G formula based on SCr of 6.81 mg/dL (H)). Microbiology: Microbiology Results (last 10 days) Procedure Component Value - Date/Time Blood Culture - Blood, Hand, Right [[id number]] (Normal) Collected: 10/26/23 0536 Lab Status: Preliminary result Specimen: Blood from Hand, Right Updated: 10/27/23 0645 Blood Culture No growth at 24 hours Narrative: Less than seven (7) mL's of blood was collected. Insufficient quantity may yield false negative results. 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 Swab in UTM/VTM, 2 HR TAT - Swab, Nasopharynx [[id number]] (Normal) Collected: 10/26/23 0515 Lab Status: Final result Specimen: Swab from Nasopharynx Updated: 10/26/23 06 ADENOVIRUS, PCR Not Detected Coronavirus 229E Not Detected Coronavirus HKU1 Not Detected Coronavirus NL63 Not Detected Coronavirus OC43 Not Detected COVID19 Not Detected Human Metapneumovirus Not Detected Human Rhinovirus/Enterovirus Not Detected Influenza A PCR Not Detected Influenza B PCR Not Detected Parainfluenza Virus 1 Not Detected Parainfluenza Virus 2 Not Detected Parainfluenza Virus 3 Not Detected Parainfluenza Virus 4 Not Detected RSV, PCR Not Detected Bordetella pertussis pcr Not Detected Bordetella parapertussis PCR Not Detected Chlamydophila pneumoniae PCR Not Detected Mycoplasma pneumo by PCR Not Detected Narrative: In the setting of a positive respiratory panel with a viral infection PLUS a negative procalcitoninwithout other underlying concern for bacterial infection, consider observing off antibiotics or discontinuation of antibiotics and continue supportive care. If the respiratory panel is positive for atypical bacterial infection (Bordetella pertussis, Chlamydophila pneumoniae, or Mycoplasma pneumoniae), consider antibiotic de-escalation to target atypical bacterial infection. MRSA Screen, PCR (Inpatient) - Swab, Nares [[id number]] (Normal) Collected: 10/26/23 0515 Lab Status: Final result Specimen: Swab from Nares Updated: 10/26/23 0958 MRSA PCR Negative Narrative: The negative predictive value of this diagnostic test is high and should only be used to consider de-escalating anti-MRSA therapy. A positive result may indicate colonization with MRSA and must be correlated clinically. MRSA Negative Blood Culture - Blood, Arm, Right [[id number]] (Normal) Collected: 10/26/23 0500 Lab Status: Preliminary result Specimen: Blood from Arm, Right Updated: 10/27/23 0645 Blood Culture No growth at 24 hours Narrative: Less than seven (7) mL's of blood was collected. Insufficient quantity may yield false negative results. Radiology: Imaging Results (Last 72 Hours) Procedure Component Value Units Date/Time XR Chest 1 View [[id number]] Collected: 10/25/232319 Updated: 10/25/232324 Narrative: XR CHEST 1 VW Date of Exam: 10/25/2023 11:00 PM EDT Indication: cough Comparison: 08/02/2023. Findings: Patchy airspace disease is seen within the right lower lobe. Right internal jugular PermCath with the tip in the upper SVC.. No pleural fluid. No pneumothorax. The pulmonary vasculature appears within normal limits. The cardiac and mediastinal silhouette appear unremarkable. No acute osseous abnormality identified. Impression: Impression: Right lower lobe pneumonia. Follow-up to resolution recommended. Electronically Signed: Ashli Abreu MD 10/25/2023 11:22 PM EDT Workstation ID: [id number] Impression: - Left upper extremity atriovenous graft infection. Awaiting revision on 10/26. Blood cultures negative to date. 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 - Morbid obesity - End Stage renal disease/HD by dialysis catheter/left UE AVF malfunctioning and infected. - Type 2 diabetes mellitus -gram positive bacteremia PLAN/RECOMMENDATIONS: Thank you for asking us to see Aiden Jaiem Eh Marques, I recommend the following: - Follow blood cultures - Continue Zosyn - Continue Vancomycin - Continue LUE wound care per Dr. Yasmani Richardson MD saw and examined patient, verified hx and PE, reviewed labs and micro data, and formulated dx, plan for treatment and all medical decision making. SAM RuvalcabaC for Scar Richardson MD I have seen and examined patient and agree with above F/u blood culture We are assuming AFV was source of bacteremia, patient also has 4 month old HD catheter NAVNEET Ruvalcaba 10/27/2023 14:09 EDT * Dontae Gruber MD - 10/26/2023 5:23 PM EDTAssociated Order(s): IP CONSULT TO GENERAL SURGERY General Surgery Consultation Note Date of Service: 10/26/2023 Aiden Ferrerasherwin Stauffer Jr. [id number] 1975 Referring Provider: Jennifer Davison MD Location of Consult: Inpatient Reason for Consultation: Aneurysmal radiocephalic fistula, questionable infection. 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 48-year-old gentleman on hemodialysis via a right-sided tunneled hemodialysis catheter has a longstanding left radiocephalic fistula. There are multiple pseudo aneurysms along the course of the forearm cephalic vein. Most proximally there is a sizable aneurysm with some surrounding erythema. I saw him this past Monday in clinic and we spoke about ligation of his fistula. Otherwise he has no new complaints. Problems Addressed this Visit Pulmonary and Pneumonias Pneumonia Relevant Medications promethazine (PHENERGAN) tablet 12.5 mg promethazine (PHENERGAN) suppository 12.5 mg Other Visit Diagnoses Occlusion of arteriovenous dialysis graft - Primary Cellulitis of left arm ESRD on hemodialysis Diagnoses Codes Comments Occlusion of arteriovenous dialysis graft - Primary ICD-10-CM: T82.898A ICD-9-CM: 996.74 Cellulitis of left arm ICD-10-CM: L03.114 ICD-9-CM: 682.3 Pneumonia of right lower lobe due to infectious organism ICD-10-CM: J18.9 ICD-9-CM: 486 ESRD on hemodialysis ICD-10-CM: N18.6, Z99.2 ICD-9-CM: 585.6, V45.11 Past Medical History: Diagnosis Date Diabetes mellitus Dialysis patient Hemorrhage THROAT VARICIES Kidney failure Liver transplanted Past Surgical History: ARTERIOVENOUS FISTULA CARDIAC CATHETERIZATION times 3 2022 CHOLECYSTECTOMY ENDOSCOPY Procedure: ESOPHAGOGASTRODUODENOSCOPY; Surgeon: Dewey Betancourt MD; Location: [facility]; Service: Gastroenterology; Laterality: N/A; LUMBAR LAMINECTOMY DISCECTOMY DECOMPRESSION Procedure: LUMBAR LAMINECTOMY DISCECTOMY DECOMPRESSION POSTERIOR L4-5; Surgeon: Yinka Garnica MD; Location: [facility]; Service: Neurosurgery; Laterality: N/A; Allergies Allergen Reactions Tacrolimus Other (See Comments) and Unknown - High Severity Anxious feeling and muscle jerking. TOLERATED ENVARSUS BETTER THAN PROGRAF. Codeine Anxiety and Unknown - Low Severity Calcitriol GI Intolerance No current facility-administered medications on file prior to encounter. Current Outpatient Medications on File Prior to Encounter Medication Sig Dispense Refill ALPRAZolam (XANAX) 0.5 MG tablet Take 1 tablet by mouth Daily As Needed for Anxiety. aspirin 81 MG chewable tablet Chew 1 tablet Daily. carBAMazepine (TEGretol) 200 MG tablet Take 1 tablet by mouth Every Night. For feet cramps carvedilol (COREG) 25 MG tablet Take 2 tablets (50 mg total) by mouth 2 times a day with meals. cholecalciferol (VITAMIN D3) 1.25 MG (13872 UT) capsule Take 1 capsule by mouth 3 (Three) Times a Week. cinacalcet (SENSIPAR) 90 MG tablet TAKE 1 TABLET BY MOUTH DAILY WITH EVENING MEAL cycloSPORINE modified (NEORAL) 25 MG capsule Take 4 capsules by mouth 2 (Two) Times a Day. Depo-Testosterone 200 MG/ML injection inject 1 Milliliter intramuscularly once monthly doxazosin (CARDURA) 8 MG tablet Take 1 tablet by mouth At Night As Needed. entecavir (BARACLUDE) 0.5 MG tablet Take 1 tablet by mouth Every 7 (Seven) Days. fenofibrate micronized (LOFIBRA) 134 MG capsule Take 1 capsule by mouth Daily. folic acid (FOLVITE) 1 MG tablet Take 1 tablet by mouth Daily. gabapentin (NEURONTIN) 800 MG tablet Take 0.5 tablets by mouth Every Night. hydrALAZINE (APRESOLINE) 100 MG tablet Take 1 tablet by mouth 3 (Three) Times a Day. 90 tablet 0 methocarbamol (ROBAXIN) 500 MG tablet Take 1 tablet by mouth 1 (One) Time. montelukast (SINGULAIR) 10 MG tablet Take 1 tablet by mouth Daily. mycophenolate (CELLCEPT) 250 MG capsule Take 1 capsule by mouth 2 (Two) Times a Day. NIFEdipine CC (ADALAT CC) 90 MG 24 hr tablet Take 1 tablet by mouth 2 (Two) Times a Day. ondansetron ODT (ZOFRAN-ODT) 8 MG disintegrating tablet Take 1 tablet by mouth 3 (Three) Times a Day As Needed. pantoprazole (PROTONIX) 40 MG EC tablet Take 1 tablet by mouth 2 (Two) Times a Day. B-D 3CC LUER-LISSETTE SYR 25GX1/2 25G X 1-1/2 3 ML misc Continuous Blood Gluc Sensor (FreeStyle Leonel 2 Sensor) misc USE DIRECTED CHANGE EVERY 14 DAYS DIRECTED insulin glargine (LANTUS, SEMGLEE) 100 UNIT/ML injection Inject 30 Units under the skin into the appropriate area as directed Every Night. insulin regular (humuLIN R,novoLIN R) 100 UNIT/ML injection Inject 5 Units under the skin into the appropriate area as directed 3 (Three) Times a Day Before Meals. Xphozah 20 MG tablet Take 30 mg by mouth 2 (Two) Times a Day. [DISCONTINUED] azithromycin (Zithromax) 250 MG tablet First day take two pills then one pill daily for 7 days 8 tablet 0 [DISCONTINUED] calcitriol (ROCALTROL) 0.25 MCG capsule Take 1 capsule by mouth Daily. [DISCONTINUED] calcium acetate (PHOS BINDER,) 667 MG capsule capsule Take 1 capsule by mouth 3 (Three) Times a Day. [DISCONTINUED] cephalexin (Keflex) 500 MG capsule Take 1 capsule by mouth 2 (Two) Times a Day. 14 capsule 0 [DISCONTINUED] vitamin D (ERGOCALCIFEROL) 1.25 MG (54492 UT) capsule capsule Take 1 capsule by mouth 2 (Two) Times a Week. Takes on Monday and Current Facility-Administered Medications: [START ON 11/02/2023] *Patient Supplied* entecavir (BARACLUDE) tablet 0.5 mg, 0.5 mg, Oral, Weekly, Jennifer Davison MD acetaminophen (TYLENOL) tablet 650 mg, 650 mg, Oral, Q4H PRN, Jayce Irizarry PA-C ALPRAZolam (XANAX) tablet 0.5 mg, 0.5 mg, Oral, Daily PRN, Jennifer Davison MD, 0.5 mg at 10/26/23 1521 aspirin chewable tablet 81 mg, 81 mg, Oral, Daily, Jayce Irizarry PA-C, 81 mg at 10/26/23 0919 sennosides-docusate (PERICOLACE) 8.6-50 MG per tablet 2 tablet, 2 tablet, Oral, BID PRN AND polyethylene glycol (MIRALAX) packet 17 g, 17 g, Oral, Daily PRN AND bisacodyl (DULCOLAX) EC tablet5 mg, 5 mg, Oral, Daily PRN AND bisacodyl (DULCOLAX) suppository 10 mg, 10 mg, Rectal, Daily PRN, Jayce Irizarry PA-C calcitriol (ROCALTROL) capsule 0.25 mcg, 0.25 mcg, Oral, Daily, Jayce Irizarry PA-C, 0.25 mcg at 10/26/23 0922 carBAMazepine (TEGretol) tablet 200 mg, 200 mg, Oral, Nightly, Jayce Irizarry PA-C carvedilol (COREG) tablet 25 mg, 25 mg, Oral, BID With Meals, Jayce Irizarry PA-C, 25 mg at 10/26/23 1653 cinacalcet (SENSIPAR) tablet 90 mg, 90 mg, Oral, Nightly, Jayce Irizarry PA-C cycloSPORINE modified (NEORAL) capsule 100 mg, 100 mg, Oral, BID, Jennifer Davison MD dextrose (D50W) (25 g/50 mL) IV injection 25 g, 25 g, Intravenous, Q15 Min PRN, Beulah Fleming DO dextrose (GLUTOSE) oral gel 15 g, 15 g, Oral, Q15 Min PRN, Beulah Fleming, DO fenofibrate (TRICOR) tablet 145 mg, 145 mg, Oral, Daily, Jayce Irizarry PA- C, 145 mg at 10/26/23 0921 folic acid (FOLVITE) tablet 1,000 mcg, 1,000 mcg, Oral, Daily, Jayce Irizarry PA-C, 1,000 mcg at 10/26/23 0919 gabapentin (NEURONTIN) capsule 300 mg, 300 mg, Oral, Nightly, Beulah Fleming, DO glucagon (GLUCAGEN) injection 1 mg, 1 mg, Intramuscular, Q15 Min PRN, Beulah Fleming, DO heparin (porcine) injection 2,000 Units, 2,000 Units, Intracatheter, PRN, Kody Wong MD, 2,000 Units at 10/26/23 1357 hydrALAZINE (APRESOLINE) tablet 100 mg, 100 mg, Oral, TID, Jayce Irizarry PA-C, 100 mg at 10/26/23 1453 HYDROmorphone (DILAUDID) injection 0.25 mg, 0.25 mg, Intravenous, Q2H PRN, Jennifer Davison MD, 0.25 mg at 10/26/23 1653 Insulin Lispro (humaLOG) injection 2-7 Units, 2-7 Units, Subcutaneous, 4x Daily AC & at Bedtime, Beulah Fleming, DO, 3 Units at 10/26/23 1652 melatonin tablet 5 mg, 5 mg, Oral, Nightly PRN, Jayce Irizarry PA-C mycophenolate (CELLCEPT) capsule 250 mg, 250 mg, Oral, Q12H, Jennifer Davison MD, 250 mg at 10/26/23 1452 naloxone (NARCAN) injection 0.4 mg, 0.4 mg, Intravenous, PRN, Beulah Fleming, DO NIFEdipine XL (PROCARDIA XL) 24 hr tablet 90 mg, 90 mg, Oral, BID, Jayce Irizarry PA-C, 90 mg at 10/26/23 0921 ondansetron (ZOFRAN) injection 4 mg, 4 mg, Intravenous, Q6H PRN, Jennifer Davison MD oxyCODONE-acetaminophen (PERCOCET) 5-325 MG per tablet 1 tablet, 1 tablet, Oral, Q6H PRN, Jennifer Davison MD, 1 tablet at 10/26/23 1521 pantoprazole (PROTONIX) EC tablet 40 mg, 40 mg, Oral, Q AM, Ricci Irizarryia L, PA-C, 40 mg at 10/26/23 0639 Pharmacy to dose vancomycin, , Does not apply, Continuous PRN, Bernadette, Beulah G, DO piperacillin-tazobactam (ZOSYN) 4.5 g IVPB in 100 mL NS MBP (CD), 4.5 g, Intravenous, Q12H, Bernadette,Beulah G, DO promethazine (PHENERGAN) tablet 12.5 mg, 12.5 mg, Oral, Q6H PRN, 12.5 mg at 10/26/23 0928 OR promethazine (PHENERGAN) suppository 12.5 mg, 12.5 mg, Rectal, Q6H PRN, Bernadette, Beulah G, DO [COMPLETED] Insert Peripheral IV, , , Once AND sodium chloride 0.9 % flush 10 mL, 10 mL, Intravenous, PRN, Terry Burgess MD sodium chloride 0.9 % flush 10 mL, 10 mL, Intravenous, Q12H, Juan C, Wildernicia L, PA-C, 10 mL at 10/26/23 0928 sodium chloride 0.9 % flush 10 mL, 10 mL, Intravenous, PRN, Wilder Irizarrynicia L, PA-C sodium chloride 0.9 % infusion 40 mL, 40 mL, Intravenous, PRN, Juan C, Bennicia L, PA-C [START ON 10/27/2023] vancomycin (dosing per levels), , Does not apply, Daily, Chito Lowe, PharmD History reviewed. No pertinent family history. Social History Socioeconomic History Marital status: Tobacco Use Smoking status: Never Passive exposure: Never Smokeless tobacco: Never Vaping Use Vaping status: Never Used Substance and Sexual Activity Alcohol use: Never Drug use: Never Sexual activity: Defer Review of Systems: Review of Systems Constitutional: Negative for chills and fever. HENT: Negative for drooling and nosebleeds. Eyes: Negative for photophobia and visual disturbance. Respiratory: Negative for chest tightness and stridor. Cardiovascular: Negative for chest pain and leg swelling. Gastrointestinal: Negative for abdominal pain, diarrhea, nausea and vomiting. Endocrine: Negative for polyphagia and polyuria. Genitourinary: Negative for dysuria and hematuria. Musculoskeletal: Negative for back pain and myalgias. Skin: Negative for rash. Allergic/Immunologic: Positive for immunocompromised state. Neurological: Negative for seizures, weakness and headaches. Hematological: Negative for adenopathy. Psychiatric/Behavioral: Negative for agitation, decreased concentration and sleep disturbance. Otherwise the 12 point review of systems is negative. BP 128/97 (BP Location: Right arm, Patient Position: Lying) Pulse 90 Temp 97.3 ??F (36.3 ??C) (Oral) Resp 14 Ht 175.3 cm (69 ) Wt 136 kg (300 lb) SpO2 94% BMI 44.30 kg/m?? Body mass index is 44.3 kg/m??. General: Laying in bed pleasantly conversant HEENT: PER, no icterus, normal sclerae Cardiac: regular rhythm, no audible rubs Pulmonary: bilateral breath sounds, nonlabored Abdominal: Obese, soft, nontender Neurologic: awake, alert, no obvious focal deficits Extremities: warm, aneurysmal left radiocephalic fistula with mild erythema on the proximal and distal aneurysms Skin: no obvious rashes nor worrisome lesions seen CBC Results from last 7 days Lab Units 10/26/23 0703 WBC 10*3/mm3 5.45 HEMOGLOBIN g/dL 11.4* HEMATOCRIT % 37.5 PLATELETS 10*3/mm3 235 CMP Results from last 7 days Lab Units 10/26/23 1423 10/26/23 0703 SODIUM mmol/L -- 141 POTASSIUM mmol/L 4.5 5.4* CHLORIDE mmol/L -- 102 CO2 mmol/L -- 21.0* BUN mg/dL -- 62* CREATININE mg/dL -- 10.13* CALCIUM mg/dL -- 9.2 BILIRUBIN mg/dL -- 0.3 ALK PHOS U/L -- 133* ALT (SGPT) U/L -- 8 AST (SGOT) U/L -- 12 GLUCOSE mg/dL -- 99 Radiology Imaging Results (Last 72 Hours) Procedure Component Value Units Date/Time XR Chest 1 View [[id number]] Collected: 10/25/232319 Updated: 10/25/232324 Narrative: XR CHEST 1 VW Date of Exam: 10/25/2023 11:00 PM EDT Indication: cough Comparison: 08/02/2023. Findings: Patchy airspace disease is seen within the right lower lobe. Right internal jugular PermCath with the tip in the upper SVC.. No pleural fluid. No pneumothorax. The pulmonary vasculature appears within normal limits. The cardiac and mediastinal silhouette appear unremarkable. No acute osseous abnormality identified. Impression: Impression: Right lower lobe pneumonia. Follow-up to resolution recommended. 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 Treat his infection in his morongo vessel with antibiotics per medicine. Once this area has healed we can proceed with creation of a new arteriovenous fistula for him. I discussed the risks and benefits of the pr ocedure including, but not limited to: bleeding, infection, injury to adjacent viscera, permanent neurovascular/neuromuscular deficits, distal embolization, need for reintervention, and medical issues from a cardiopulmonary and deep venous thrombosis standpoint. He understands and wishes to proceedas he did this past Monday. N.p.o. after midnight. Dontae Gruber MD 10/26/23 17:24 EDT * Kody Wong MD - 10/26/2023 9:50 AM EDTAssociated Order(s): IP CONSULT TO NEPHROLOGY Referring Provider: Dr. 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 Patient is admitted with complaint of pain in the fistula,, areas of inflammation. Patient has been scheduled for revision by Dr. Lynn, but because of worsening pain and swelling of the AV fistula patient decided to come into the hospital concerning inclusion of possible infection to the graft site. Patient be admitted. He was last dialyzed 2 days ago at home. PMH includes T2 DM, KIM, cirrhosis s/p liver transplant 2017, hypertension, hyperlipidemia, diabetes. He denies any fever, chills, hemoptysis, hematemesis, gross hematuria, diarrhea, constipation, headache. He complains of pain in the AV fistula area and nausea at times. History Past Medical History: Diagnosis Date Diabetes mellitus Dialysis patient Hemorrhage THROAT VARICIES Kidney failure Liver transplanted , Past Surgical History: Procedure Laterality Date ARTERIOVENOUS FISTULA Left 2019 CARDIAC CATHETERIZATION times 2022 CHOLECYSTECTOMY ENDOSCOPY N/A 05/04/2020 Procedure: ESOPHAGOGASTRODUODENOSCOPY; Surgeon: Dewey Betancourt MD; Location: [facility]; Service: Gastroenterology; Laterality: N/A; LUMBAR LAMINECTOMY DISCECTOMY DECOMPRESSION N/A 04/29/2020 Procedure: LUMBAR LAMINECTOMY DISCECTOMY DECOMPRESSION POSTERIOR L4-5; Surgeon: Yinka Garnica MD; Location: [facility] OR; Service: Neurosurgery; Laterality: N/A; , History reviewed. No pertinent family history., Social History Socioeconomic History Marital status: Tobacco Use Smoking status: Never Passive exposure: Never Smokeless tobacco: Never Vaping Use Vaping status: Never Used Substance and Sexual Activity Alcohol use: Never Drug use: Never Sexual activity: Defer E-cigarette/Vaping E-cigarette/Vaping Use Never User Passive Exposure No Counseling Given No E-cigarette/Vaping Substances Nicotine No THC No CBD No Flavoring No E-cigarette/Vaping Devices Disposable No Pre-filled or Refillable Cartridge No Refillable Tank No Pre-filled Pod No , Medications Prior to Admission Medication Sig Dispense Refill Last Dose aspirin 81 MG chewable tablet Chew 1 tablet Daily. carBAMazepine (TEGretol) 200 MG tablet Take 1 tablet by mouth Every Night. For feet cramps carvedilol (COREG) 25 MG tablet Take 2 tablets (50 mg total) by mouth 2 times a day with meals. cholecalciferol (VITAMIN D3) 1.25 MG (21242 UT) capsule Take 1 capsule by mouth 3 (Three) Times a Week. cycloSPORINE modified (NEORAL) 25 MG capsule Take 4 capsules by mouth. Depo-Testosterone 200 MG/ML injection inject 1 Milliliter intramuscularly once monthly doxazosin (CARDURA) 8 MG tablet Take 1 tablet by mouth At Night As Needed. entecavir (BARACLUDE) 0.5 MG tablet Take 1 tablet by mouth Every 7 (Seven) Days. gabapentin (NEURONTIN) 800 MG tablet Take 0.5 tablets by mouth Every Night. hydrALAZINE (APRESOLINE) 100 MG tablet Take 1 tablet by mouth 3 (Three) Times a Day. 90 tablet 0 methocarbamol (ROBAXIN) 500 MG tablet Take 1 tablet by mouth 1 (One) Time. ondansetron ODT (ZOFRAN-ODT) 8 MG disintegrating tablet Take 1 tablet by mouth 3 (Three) Times a Day As Needed. pantoprazole (PROTONIX) 40 MG EC tablet Take 1 tablet by mouth. ALPRAZolam (XANAX) 0.5 MG tablet Take 1 tablet by mouth. B-D 3CC LUER-LISSETTE SYR 25GX1/2 25G X 1-1/2 3 ML misc calcitriol (ROCALTROL) 0.25 MCG capsule Take 1 capsule by mouth Daily. calcium acetate (PHOS BINDER,) 667 MG capsule capsule Take 1 capsule by mouth 3 (Three) Times a Day. cinacalcet (SENSIPAR) 90 MG tablet TAKE 1 TABLET BY MOUTH DAILY WITH EVENING MEAL Continuous Blood Gluc Sensor (FreeStyle Leonel 2 Sensor) misc USE DIRECTED CHANGE EVERY 14 DAYS DIRECTED fenofibrate micronized (LOFIBRA) 134 MG capsule Take 1 capsule by mouth Daily. folic acid (FOLVITE) 1 MG tablet Take 1 tablet by mouth Daily. insulin glargine (LANTUS, SEMGLEE) 100 UNIT/ML injection Inject 30 Units under the skin into the appropriate area as directed Every Night. insulin regular (humuLIN R,novoLIN R) 100 UNIT/ML injection Inject 5 Units under the skin into the appropriate area as directed 3 (Three) Times a Day Before Meals. montelukast (SINGULAIR) 10 MG tablet Take 1 tablet by mouth Daily. NIFEdipine CC (ADALAT CC) 90 MG 24 hr tablet Take 1 tablet by mouth 2 (Two) Times a Day. vitamin D (ERGOCALCIFEROL) 1.25 MG (25891 UT) capsule capsule Take 1 capsule by mouth 2 (Two) Timesa Week. Takes on Monday and Xphozah 20 MG tablet Take 1 tablet by mouth. , Scheduled Meds: aspirin, 81 mg, Oral, Daily calcitriol, 0.25 mcg, Oral, Daily calcium acetate, 667 mg, Oral, TID carBAMazepine, 200 mg, Oral, Nightly carvedilol, 25 mg, Oral, BID With Meals cinacalcet, 90 mg, Oral, Nightly cycloSPORINE modified, 100 mg, Oral, Daily fenofibrate, 145 mg, Oral, Daily folic acid, 1,000 mcg, Oral, Daily gabapentin, 300 mg, Oral, Nightly hydrALAZINE, 100 mg, Oral, TID insulin lispro, 2-7 Units, Subcutaneous, 4x Daily AC & at Bedtime NIFEdipine XL, 90 mg, Oral, BID pantoprazole, 40 mg, Oral, Q AM piperacillin-tazobactam, 4.5 g, Intravenous, Q12H sodium chloride, 10 mL, Intravenous, Q12H [START ON 10/27/2023] vancomycin (dosing per levels), , Does not apply, Daily , Continuous Infusions: Pharmacy to dose vancomycin, , PRN Meds: acetaminophen senna-docusate sodium AND polyethylene glycol AND bisacodyl AND bisacodyl dextrose dextrose glucagon (human recombinant) HYDROmorphone melatonin naloxone Pharmacy to dose vancomycin promethazine OR promethazine [COMPLETED] Insert Peripheral IV AND sodium chloride sodium chloride sodium chloride, and Allergies: Tacrolimus, Codeine, and Calcitriol Review of Systems Pertinent items are noted in HPI, all other systems reviewed and negative Objective Vital Signs Temp: [98.6 ??F (37 ??C)] 98.6 ??F (37 ??C) Heart Rate: [82-108] 105 Resp: [26] 26 BP: (143-220)/(72-115) 151/110 No intake/output data recorded. No intake/output data recorded. Physical Exam: General appearance: male, mild distress, awake, alert, morbidly obese. HEENT: Atraumatic normocephalic head, eyes pupil reactive, extraocular muscle intact, nose no bleed, oropharynx clear, neck is supple, no JVD, no lymph node enlargement, trachea midline. Lungs: Clear to auscultation, equal chest movement, no crepitation. Heart: Normal S1, S2, no gallop, murmur, RRR. Abdomen: Soft, nontender, positive bowel sounds, no organomegaly. Extremities: Positive bilateral trace lower extremity edema, no cyanosis, no joint swelling. Neuro: Alert, oriented x4, no focal deficit. Psych: Mood and affect are normal and appropriate. Skin: Left forearm AV fistula with areas of inflammation, redness noted skin is warm and dry. : No suprapubic fullness or tenderness, no Anders catheter. Results Review: I reviewed the patient's new clinical results. WBC WBC Date Value Ref Range Status 10/26/2023 5.45 3.40 - 10.80 10*3/mm3 Final 10/26/2023 5.33 3.40 - 10.80 10*3/mm3 Final 10/23/2023 3.8 3.8 - 10.8 10E3/uL Final HGB Hemoglobin Date Value Ref Range Status 10/26/2023 11.4 (L) 13.0 - 17.7 g/dL Final 10/26/2023 11.3 (L) 13.0 - 17.7 g/dL Final 10/23/2023 11.6 (L) 13.2 - 17.1 g/dL Final HCT Hematocrit Date Value Ref Range Status 10/26/2023 37.5 37.5 - 51.0 % Final 10/26/2023 35.7 (L) 37.5 - 51.0 % Final 10/23/2023 35.4 (L) 38.5 - 50.0 % Final Platlets No results found for: LABPLAT MCV MCV Date Value Ref Range Status 10/26/2023 103.6 (H) 79.0 - 97.0 fL Final 10/26/2023 99.7 (H) 79.0 - 97.0 fL Final 10/23/2023 99.5 80.0 - 100.0 fL Final Sodium Sodium Date Value Ref Range Status 10/26/2023 141 136 - 145 mmol/L Final 10/26/2023 142 136 - 145 mmol/L Final Potassium Potassium Date Value Ref Range Status 10/26/2023 5.4 (H) 3.5 - 5.2 mmol/L Final 10/26/2023 5.8 (H) 3.5 - 5.2 mmol/L Final Comment: Slight hemolysis detected by analyzer. Result may be falsely elevated. Chloride Chloride Date Value Ref Range Status 10/26/2023 102 98 - 107 mmol/L Final 10/26/2023 102 98 - 107 mmol/L Final CO2 CO2 Date Value Ref Range Status 10/26/2023 21.0 (L) 22.0 - 29.0 mmol/L Final 10/26/2023 22.0 22.0 - 29.0 mmol/L Final BUN BUN Date Value Ref Range Status 10/26/2023 62 (H) 6 - 20 mg/dL Final 10/26/2023 60 (H) 6 - 20 mg/dL Final Creatinine Creatinine Date Value Ref Range Status 10/26/2023 10.13 (H) 0.76 - 1.27 mg/dL Final 10/26/2023 9.74 (H) 0.76 - 1.27 mg/dL Final Calcium Calcium Date Value Ref Range Status 10/26/2023 9.2 8.6 - 10.5 mg/dL Final 10/26/2023 8.8 8.6 - 10.5 mg/dL Final PO4 No results found for: CAPO4 Albumin Albumin Date Value Ref Range Status 10/26/2023 4.2 3.5 - 5.2 g/dL Final 10/26/2023 4.2 3.5 - 5.2 g/dL Final 10/23/2023 4.2 3.5 - 5.7 g/dL Final Magnesium Magnesium Date Value Ref Range Status 10/26/2023 1.9 1.6 - 2.6 mg/dL Final Uric Acid No results found for: URICACID aspirin, 81 mg, Oral, Daily calcitriol, 0.25 mcg, Oral, Daily calcium acetate, 667 mg, Oral, TID carBAMazepine, 200 mg, Oral, Nightly carvedilol, 25 mg, Oral, BID With Meals cinacalcet, 90 mg, Oral, Nightly cycloSPORINE modified, 100 mg, Oral, Daily fenofibrate, 145 mg, Oral, Daily folic acid, 1,000 mcg, Oral, Daily gabapentin, 300 mg, Oral, Nightly hydrALAZINE, 100 mg, Oral, TID insulin lispro, 2-7 Units, Subcutaneous, 4x Daily AC & at Bedtime NIFEdipine XL, 90 mg, Oral, BID pantoprazole, 40 mg, Oral, Q AM piperacillin-tazobactam, 4.5 g, Intravenous, Q12H sodium chloride, 10 mL, Intravenous, Q12H [START ON 10/27/2023] vancomycin (dosing per levels), , Does not apply, Daily Pharmacy to dose vancomycin, Assessment & Plan Arm pain KIM (nonalcoholic steatohepatitis) History of liver transplant Immunosuppression Type 2 diabetes mellitus ESRD (end stage renal disease) Pneumonia 1. ESRD: On home hemodialysis initially via the AV fistula, now dialyzing with a tunneled catheter follow-up with Dr. Sky at [facility]. Patient last dialyzed on Monday. Dialyzes 4 times a week. 2. Infected AV fistula: Patient has been scheduled with Dr. Lynn for possible revision. 3. Metabolic acidosis: Due to renal failure. 4. Volume overload corrected with dialysis. 5. KIM: History of liver transplant. On cyclosporine. 6. Type 2 diabetes. 7. Secondary hyperparathyroidism: On Cinacalcet 8. Hyperphosphatemia: On phosphate binders. 9. Vitamin D deficiency: On oral vitamin D. 10. Hyperlipidemia: On statin Recommendations: Surgical evaluation will be done. Dialysis orders written with ultrafiltration. Home medication will be started as noted above. Renal diet with fluid restriction less than 1500 mL/day High risk complex patient with multiple medical problems. I discussed the patients findings and my recommendations with patient and nursing staff Kody Wong MD 10/26/23 @[facility] documented in this encounter Nursing Notes * Lakeshia Nowak RN - 11/02/2023 6:07 PM EDT Patient states he wants to go home today. Patient states he has not gotten any rest since hospitalized here, and it has been one week. He is anxious but refused anti-anxiety meds. Patient understandsthat MDs here in the hospital are not ready to give him discharge order. Patient states he will contact Dr. Fan's office to arrange dialysis catheter placement set up for tomorrow. Patient signed AMA form in the chart. and auditor in charge informed. * Margarita Menendez RN - 11/02/2023 4:07 PM EDT Goal Outcome Evaluation: Scheduled HD completed. Goal not met. Temporary cath performed poorly. Tx dc early per Dr hodge r/t to access Tried 4 times to get a hold of JANA Barraza primary nurse via phone and in person on floor. Gave report to risk management professional. Problem: Device-Related Complication Risk (Hemodialysis) Goal: Safe, Effective Therapy Delivery Outcome: Unable to Meet, Plan Revised Problem: Hemodynamic Instability (Hemodialysis) Goal: Effective Tissue Perfusion Outcome: Ongoing, Progressing Problem: Infection (Hemodialysis) Goal: Absence of Infection Signs and Symptoms Outcome: Unable to Meet, Plan Revised * Jovanny Lopez RN - 11/02/2023 4:25 AM EDT Problem: Adult Inpatient Plan of Care Goal: Plan of Care Review Outcome: Ongoing, Progressing Flowsheets (Taken 11/02/2023 0425) Progress: improving Goal: Patient-Specific Goal (Individualized) Outcome: Ongoing, Progressing Goal: Absence of Hospital-Acquired Illness or Injury Outcome: Ongoing, Progressing Intervention: Identify and Manage Fall Risk Recent Flowsheet Documentation Taken 11/02/2023 0400 by Jovanny Lopez RN Safety Promotion/Fall Prevention: safety round/check completed nonskid shoes/slippers when out of bed clutter free environment maintained assistive device/personal items within reach Taken 11/02/2023 0200 by Jovanny Lopez RN Safety Promotion/Fall Prevention: safety round/check completed nonskid shoes/slippers when out of bed clutter free environment maintained assistive device/personal items within reach Taken 11/02/2023 0000 by Jovanny Lopez RN Safety Promotion/Fall Prevention: safety round/check completed nonskid shoes/slippers when out of bed clutter free environment maintained assistive device/personal items within reach Taken 11/01/2023 2200 by Jovanny Lopez RN Safety Promotion/Fall Prevention: safety round/check completed nonskid shoes/slippers when out of bed clutter free environment maintained assistive device/personal items within reach Taken 11/01/20231999 by Jovanny Lopez RN Safety Promotion/Fall Prevention: safety round/check completed nonskid shoes/slippers when out of bed clutter free environment maintained assistive device/personal items within reach Intervention: Prevent Infection Recent Flowsheet Documentation Taken 11/02/2023 0400 by Jovanny Lopez RN Infection Prevention: environmental surveillance performed Taken 11/02/2023 0200 by Jovanny Lopez RN Infection Prevention: environmental surveillance performed Taken 11/02/2023 0000 by Jovanny Lopez RN Infection Prevention: environmental surveillance performed Taken 11/01/2023 2200 by Jovanny Lopez RN Infection Prevention: environmental surveillance performed Taken 11/01/20231999 by Jovanny Lopez RN Infection Prevention: environmental surveillance performed Goal: Optimal Comfort and Wellbeing Outcome: Ongoing, Progressing Goal: Readiness for Transition of Care Outcome: Ongoing, Progressing Problem: Device-Related Complication Risk (Hemodialysis) Goal: Safe, Effective Therapy Delivery Outcome: Ongoing, Progressing Problem: Infection (Hemodialysis) Goal: Absence of Infection Signs and Symptoms Outcome: Ongoing, Progressing Problem: Fall Injury Risk Goal: Absence of Fall and Fall-Related Injury Outcome: Ongoing, Progressing Intervention: Promote Injury-Free Environment Recent Flowsheet Documentation Taken 11/02/2023 0400 by Jovanny Lopez RN Safety Promotion/Fall Prevention: safety round/check completed nonskid shoes/slippers when out of bed clutter free environment maintained assistive device/personal items within reach Taken 11/02/2023 0200 by Jovanny Lopez RN Safety Promotion/Fall Prevention: safety round/check completed nonskid shoes/slippers when out of bed clutter free environment maintained assistive device/personal items within reach Taken 11/02/2023 0000 by Jovanny Lopez RN Safety Promotion/Fall Prevention: safety round/check completed nonskid shoes/slippers when out of bed clutter free environment maintained assistive device/personal items within reach Taken 11/01/2023 2200 by Jovanny Lopez RN Safety Promotion/Fall Prevention: safety round/check completed nonskid shoes/slippers when out of bed clutter free environment maintained assistive device/personal items within reach Taken 11/01/2023 2000 by Jovanny Lopez RN Safety Promotion/Fall Prevention: safety round/check completed nonskid shoes/slippers when out of bed clutter free environment maintained assistive device/personal items within reach Goal Outcome Evaluation: Progress: improving * Adam Wood RN - 11/01/2023 4:57 PM EDT Hemodialysis treatments underway. Tolerating well thus far. Problem: Device-Related Complication Risk (Hemodialysis) Goal: Safe, Effective Therapy Delivery Outcome: Ongoing, Progressing Goal Outcome Evaluation: * Manolo Nunez RN - 11/01/2023 1:06 PM EDT 15.5 dutch Image guided temporary dialysis catheter placed to right internal jugular by Dr Castro. Patient tolerated well. Patient to dialysis after * Mukul Styles RN - 10/31/2023 8:00 PM EDT Contacted forestry extension specialist LOG PREPARER regarding patient's hypotension. Patient was requiring an increased amount of oxygen to maintain 90% SAT. Patient also experiencing nausea with no relief. New order given for 250 ml bolus. Patient was responsive to bolus and BP corrected. Patient is no longer experiencing nausea at this time. * Mukul Styles RN - 10/31/2023 4:41 AM EDT Goal Outcome Evaluation: Problem: Adult Inpatient Plan of Care Goal: Plan of Care Review Outcome: Ongoing, Progressing Goal: Patient-Specific Goal (Individualized) Outcome: Ongoing, Progressing Goal: Absence of Hospital-Acquired Illness or Injury Outcome: Ongoing, Progressing Intervention: Identify and Manage Fall Risk Recent Flowsheet Documentation Taken 10/31/2023 0000 by Mukul Styles RN Safety Promotion/Fall Prevention: activity supervised assistive device/personal items within reach clutter free environment maintained nonskid shoes/slippers when out of bed Taken 10/30/20232199 by Mukul Styles RN Safety Promotion/Fall Prevention: activity supervised assistive device/personal items within reach clutter free environment maintained nonskid shoes/slippers when out of bed Taken 10/30/20232045 by Mukul Styles RN Safety Promotion/Fall Prevention: activity supervised assistive device/personal items within reach clutter free environment maintained nonskid shoes/slippers when out of bed Taken 10/30/20231999 by Mukul Styles RN Safety Promotion/Fall Prevention: assistive device/personal items within reach activity supervised clutter free environment maintained nonskid shoes/slippers when out of bed Intervention: Prevent Skin Injury Recent Flowsheet Documentation Taken 10/31/2023 0000 by Mukul Styles RN Body Position: position changed independently Taken 10/30/20232199 by Mukul Styles RN Body Position: position changed independently Taken 10/30/20232045 by Mukul Styles RN Body Position: position changed independently Intervention: Prevent and Manage VTE (Venous Thromboembolism) Risk Recent Flowsheet Documentation Taken 10/31/2023 0000 by Mukul Styles RN Activity Management: activity encouraged Taken 10/30/20232199 by Mukul Styles RN Activity Management: activity encouraged Taken 10/30/20232045 by Mukul Styles RN Activity Management: ambulated to bathroom Taken 10/30/20231999 by Mukul Styles RN Activity Management: activity encouraged Goal: Optimal Comfort and Wellbeing Outcome: Ongoing, Progressing Goal: Readiness for Transition of Care Outcome: Ongoing, Progressing Problem: Device-Related Complication Risk (Hemodialysis) Goal: Safe, Effective Therapy Delivery Outcome: Ongoing, Progressing Problem: Hemodynamic Instability (Hemodialysis) Goal: Effective Tissue Perfusion Outcome: Ongoing, Progressing Problem: Infection (Hemodialysis) Goal: Absence of Infection Signs and Symptoms Outcome: Ongoing, Progressing Problem: Fall Injury Risk Goal: Absence of Fall and Fall-Related Injury Outcome: Ongoing, Progressing Intervention: Promote Injury-Free Environment Recent Flowsheet Documentation Taken 10/31/2023 0000 by Mukul Styles RN Safety Promotion/Fall Prevention: activity supervised assistive device/personal items within reach clutter free environment maintained nonskid shoes/slippers when out of bed Taken 10/30/2023 2200 by Mukul Styles RN Safety Promotion/Fall Prevention: activity supervised assistive device/personal items within reach clutter free environment maintained nonskid shoes/slippers when out of bed Taken 10/30/20232045 by Mukul Styles RN Safety Promotion/Fall Prevention: activity supervised assistive device/personal items within reach clutter free environment maintained nonskid shoes/slippers when out of bed Taken 10/30/20231999 by Mukul Styles RN Safety Promotion/Fall Prevention: assistive device/personal items within reach activity supervised clutter free environment maintained nonskid shoes/slippers when out of bed Problem: Noninvasive Ventilation Acute Goal: Effective Unassisted Ventilation and Oxygenation Outcome: Ongoing, Progressing * Hong Schwartz RN - 10/30/2023 6:38 PM EDT Goal Outcome Evaluation: Pt returned from HD at roughly 1130 with just over 3.5 liters removed. Pt then went down to IR at 1600 to have HD cath removed - dressing is CDI. * Tiny Langston RN - 10/30/2023 11:44 AM EDT Goal Outcome Evaluation: HD completed. Tolerated well. Access functioned well. UF goal reached. Blood returned. Report given to primary JANA Pitts. Problem: Device-Related Complication Risk (Hemodialysis) Goal: Safe, Effective Therapy Delivery Outcome: Ongoing, Progressing Intervention: Optimize Device Care and Function Recent Flowsheet Documentation Taken 10/30/2023 1130 by Tiny Langston rn digestive Review/Management: medications reviewed Taken 10/30/2023 0730 by Tiny Langston RN Medication Review/Management: medications reviewed Problem: Hemodynamic Instability (Hemodialysis) Goal: Effective Tissue Perfusion Outcome: Ongoing, Progressing Problem: Infection (Hemodialysis) Goal: Absence of Infection Signs and Symptoms Outcome: Ongoing, Progressing * Mukul Styles RN - 10/30/2023 6:04 AM EDT Goal Outcome Evaluation: Problem: Adult Inpatient Plan of Care Goal: Plan of Care Review Outcome: Ongoing, Progressing Goal: Patient-Specific Goal (Individualized) Outcome: Ongoing, Progressing Goal: Absence of Hospital-Acquired Illness or Injury Outcome: Ongoing, Progressing Intervention: Identify and Manage Fall Risk Recent Flowsheet Documentation Taken 10/30/2023 0400 by Mukul Styles RN Safety Promotion/Fall Prevention: activity supervised assistive device/personal items within reach clutter free environment maintained nonskid shoes/slippers when out of bed Taken 10/30/2023 0200 by Mukul Styles RN Safety Promotion/Fall Prevention: activity supervised assistive device/personal items within reach clutter free environment maintained nonskid shoes/slippers when out of bed Taken 10/30/2023 0000 by Mukul Styles RN Safety Promotion/Fall Prevention: activity supervised assistive device/personal items within reach clutter free environment maintained nonskid shoes/slippers when out of bed Taken 10/29/2023 2200 by Mukul Styles RN Safety Promotion/Fall Prevention: activity supervised assistive device/personal items within reach clutter free environment maintained nonskid shoes/slippers when out of bed Taken 10/29/2023 2000 by Mukul Styles RN Safety Promotion/Fall Prevention: activity supervised assistive device/personal items within reach clutter free environment maintained nonskid shoes/slippers when out of bed Intervention: Prevent Skin Injury Recent Flowsheet Documentation Taken 10/30/2023 0400 by Mukul Styles RN Body Position: position changed independently Taken 10/30/2023 0200 by Mukul Styles RN Body Position: position changed independently Taken 10/30/2023 0000 by Mukul Styles RN Body Position: position changed independently Taken 10/29/20232199 by Mukul Styles RN Body Position: position changed independently Taken 10/29/20231999 by Mukul Styles RN Body Position: position changed independently Intervention: Prevent and Manage VTE (Venous Thromboembolism) Risk Recent Flowsheet Documentation Taken 10/30/2023 0400 by Mukul Styles RN Activity Management: activity encouraged Taken 10/30/2023 0200 by Mukul Styles RN Activity Management: activity encouraged Taken 10/30/2023 0000 by Mukul Styles RN Activity Management: activity encouraged Taken 10/29/20232199 by Mukul Styles RN Activity Management: activity encouraged Taken 10/29/20231999 by Mukul Styles RN Activity Management: activity encouraged Goal: Optimal Comfort and Wellbeing Outcome: Ongoing, Progressing Goal: Readiness for Transition of Care Outcome: Ongoing, Progressing Problem: Device-Related Complication Risk (Hemodialysis) Goal: Safe, Effective Therapy Delivery Outcome: Ongoing, Progressing Problem: Hemodynamic Instability (Hemodialysis) Goal: Effective Tissue Perfusion Outcome: Ongoing, Progressing Problem: Infection (Hemodialysis) Goal: Absence of Infection Signs and Symptoms Outcome: Ongoing, Progressing Problem: Fall Injury Risk Goal: Absence of Fall and Fall-Related Injury Outcome: Ongoing, Progressing Intervention: Promote Injury-Free Environment Recent Flowsheet Documentation Taken 10/30/2023 0400 by Mukul Styles RN Safety Promotion/Fall Prevention: activity supervised assistive device/personal items within reach clutter free environment maintained nonskid shoes/slippers when out of bed Taken 10/30/2023 0200 by Mukul Styles RN Safety Promotion/Fall Prevention: activity supervised assistive device/personal items within reach clutter free environment maintained nonskid shoes/slippers when out of bed Taken 10/30/2023 0000 by Mukul Styles RN Safety Promotion/Fall Prevention: activity supervised assistive device/personal items within reach clutter free environment maintained nonskid shoes/slippers when out of bed Taken 10/29/20232199 by Mukul Styles RN Safety Promotion/Fall Prevention: activity supervised assistive device/personal items within reach clutter free environment maintained nonskid shoes/slippers when out of bed Taken 10/29/20231999 by Mukul Styles RN Safety Promotion/Fall Prevention: activity supervised assistive device/personal items within reach clutter free environment maintained nonskid shoes/slippers when out of bed Problem: Noninvasive Ventilation Acute Goal: Effective Unassisted Ventilation and Oxygenation Outcome: Ongoing, Progressing * Mandi Aparicio RN - 10/29/2023 7:15 AM EDT Goal Outcome Evaluation: Problem: Adult Inpatient Plan of Care Goal: Plan of Care Review Outcome: Ongoing, Progressing Goal: Patient-Specific Goal (Individualized) Outcome: Ongoing, Progressing Goal: Absence of Hospital-Acquired Illness or Injury Outcome: Ongoing, Progressing Goal: Optimal Comfort and Wellbeing Outcome: Ongoing, Progressing Goal: Readiness for Transition of Care Outcome: Ongoing, Progressing Problem: Device-Related Complication Risk (Hemodialysis) Goal: Safe, Effective Therapy Delivery Outcome: Ongoing, Progressing Problem: Hemodynamic Instability (Hemodialysis) Goal: Effective Tissue Perfusion Outcome: Ongoing, Progressing Problem: Infection (Hemodialysis) Goal: Absence of Infection Signs and Symptoms Outcome: Ongoing, Progressing Problem: Fall Injury Risk Goal: Absence of Fall and Fall-Related Injury Outcome: Ongoing, Progressing * Mukul Styles RN - 10/29/2023 6:14 AM EDT Goal Outcome Evaluation: Problem: Adult Inpatient Plan of Care Goal: Plan of Care Review Outcome: Ongoing, Progressing Goal: Patient-Specific Goal (Individualized) Outcome: Ongoing, Progressing Goal: Absence of Hospital-Acquired Illness or Injury Outcome: Ongoing, Progressing Intervention: Identify and Manage Fall Risk Recent Flowsheet Documentation Taken 10/29/2023 0000 by Mukul Styles RN Safety Promotion/Fall Prevention: activity supervised assistive device/personal items within reach clutter free environment maintained nonskid shoes/slippers when out of bed Taken 10/28/20232119 by Mukul Styles RN Safety Promotion/Fall Prevention: activity supervised assistive device/personal items within reach clutter free environment maintained nonskid shoes/slippers when out of bed Intervention: Prevent Skin Injury Recent Flowsheet Documentation Taken 10/29/2023 0000 by Mukul Styles RN Body Position: position changed independently Taken 10/28/20232119 by Mukul Styles RN Body Position: position changed independently Intervention: Prevent and Manage VTE (Venous Thromboembolism) Risk Recent Flowsheet Documentation Taken 10/29/2023 0000 by Mukul Styles RN Activity Management: activity encouraged Taken 10/28/20232119 by Mukul Styles RN Activity Management: ambulated in room Goal: Optimal Comfort and Wellbeing Outcome: Ongoing, Progressing Goal: Readiness for Transition of Care Outcome: Ongoing, Progressing Problem: Device-Related Complication Risk (Hemodialysis) Goal: Safe, Effective Therapy Delivery Outcome: Ongoing, Progressing Problem: Hemodynamic Instability (Hemodialysis) Goal: Effective Tissue Perfusion Outcome: Ongoing, Progressing Problem: Infection (Hemodialysis) Goal: Absence of Infection Signs and Symptoms Outcome: Ongoing, Progressing Problem: Fall Injury Risk Goal: Absence of Fall and Fall-Related Injury Outcome: Ongoing, Progressing Intervention: Promote Injury-Free Environment Recent Flowsheet Documentation Taken 10/29/2023 0000 by Mukul Styles RN Safety Promotion/Fall Prevention: activity supervised assistive device/personal items within reach clutter free environment maintained nonskid shoes/slippers when out of bed Taken 10/28/20232119 by Mukul Styles RN Safety Promotion/Fall Prevention: activity supervised assistive device/personal items within reach clutter free environment maintained nonskid shoes/slippers when out of bed * Mandi Aparicio RN - 10/28/2023 10:48 AM EDT Goal Outcome Evaluation: Problem: Adult Inpatient Plan of Care Goal: Plan of Care Review Outcome: Ongoing, Progressing Goal: Patient-Specific Goal (Individualized) Outcome: Ongoing, Progressing Goal: Absence of Hospital-Acquired Illness or Injury Outcome: Ongoing, Progressing Goal: Optimal Comfort and Wellbeing Outcome: Ongoing, Progressing Goal: Readiness for Transition of Care Outcome: Ongoing, Progressing Problem: Device-Related Complication Risk (Hemodialysis) Goal: Safe, Effective Therapy Delivery Outcome: Ongoing, Progressing Problem: Hemodynamic Instability (Hemodialysis) Goal: Effective Tissue Perfusion Outcome: Ongoing, Progressing Problem: Infection (Hemodialysis) Goal: Absence of Infection Signs and Symptoms Outcome: Ongoing, Progressing * Carter Hawkins RN - 10/28/2023 4:49 AM EDT Goal Outcome Evaluation: VSS. Pt medicated for pain. Pt denies nausea, vomiting. Pt denies any needs at this time. * Mandi Aparicio RN - 10/27/2023 2:12 PM EDT Goal Outcome Evaluation: Problem: Adult Inpatient Plan of Care Goal: Plan of Care Review 10/27/2023 141 by Mandi Aparicio RN Outcome: Ongoing, Progressing 10/27/2023 1412 by Mandi Aparicio RN Outcome: Ongoing, Progressing Goal: Patient-Specific Goal (Individualized) 10/27/2023 1412 by Mandi Aparicio RN Outcome: Ongoing, Progressing 10/27/2023 1412 by Mandi Aparicio RN Outcome: Ongoing, Progressing Goal: Absence of Hospital-Acquired Illness or Injury 10/27/2023 1412 by Mandi Aparicio RN Outcome: Ongoing, Progressing 10/27/2023 1412 by Mandi Aparicio RN Outcome: Ongoing, Progressing Intervention: Identify and Manage Fall Risk Recent Flowsheet Documentation Taken 10/27/2023 1400 by Mandi Aparicio RN Safety Promotion/Fall Prevention: patient off unit Taken 10/27/2023 1200 by Mandi Aparicio RN Safety Promotion/Fall Prevention: patient off unit Taken 10/27/2023 1100 by Mandi Aparicio RN Safety Promotion/Fall Prevention: patient off unit Taken 10/27/2023 1000 by Mandi Aparicio RN Safety Promotion/Fall Prevention: patient off unit Taken 10/27/2023 0800 by Mandi Aparicio RN Safety Promotion/Fall Prevention: activity supervised assistive device/personal items within reach clutter free environment maintained room organization consistent safety round/check completed toileting scheduled Intervention: Prevent Skin Injury Recent Flowsheet Documentation Taken 10/27/2023 0800 by Mandi Aparicio RN Body Position: position changed independently Skin Protection: incontinence pads utilized transparent dressing maintained Intervention: Prevent and Manage VTE (Venous Thromboembolism) Risk Recent Flowsheet Documentation Taken 10/27/2023 0800 by Mandi Aparicio RN Activity Management: up ad shelia Goal: Optimal Comfort and Wellbeing 10/27/2023 141 by Mandi Aparicio RN Outcome: Ongoing, Progressing 10/27/2023 141 by Mandi Aparicio RN Outcome: Ongoing, Progressing Intervention: Monitor Pain and Promote Comfort Recent Flowsheet Documentation Taken 10/27/2023 0800 by Mandi Aparicio RN Pain Management Interventions: care clustered see MAR Intervention: Provide Person-Centered Care Recent Flowsheet Documentation Taken 10/27/2023 0800 by Mandi Aparicio RN Trust Relationship/Rapport: care explained choices provided Goal: Readiness for Transition of Care 10/27/2023 141 by Mandi Aparicio RN Outcome: Ongoing, Progressing 10/27/2023 141 by Mandi Aparicio RN Outcome: Ongoing, Progressing * Kelly Guerrero RN - 10/27/2023 1:18 PM EDT Problem: Device-Related Complication Risk (Hemodialysis) Goal: Safe, Effective Therapy Delivery Outcome: Ongoing, Progressing Intervention: Optimize Device Care and Function Recent Flowsheet Documentation Taken 10/27/2023 1300 by Kelly Guerrero RN Medication Review/Management: medications reviewed high-risk medications identified Problem: Hemodynamic Instability (Hemodialysis) Goal: Effective Tissue Perfusion Outcome: Ongoing, Progressing Problem: Infection (Hemodialysis) Goal: Absence of Infection Signs and Symptoms Outcome: Ongoing, Progressing Goal Outcome Evaluation: HD treatment complete, blood reinfused, hypotensive episode during treatment. Albumin utilized. Hypotension resolved. Report given to primary JANA Raymond. * Roberta Wise RN - 10/27/2023 1:35 AM EDT Goal Outcome Evaluation: Problem: Adult Inpatient Plan of Care Goal: Plan of Care Review Outcome: Ongoing, Progressing Goal: Patient-Specific Goal (Individualized) Outcome: Ongoing, Progressing Goal: Absence of Hospital-Acquired Illness or Injury Outcome: Ongoing, Progressing Intervention: Identify and Manage Fall Risk Recent Flowsheet Documentation Taken 10/27/2023 by Roberta Wise RN Safety Promotion/Fall Prevention: activity supervised assistive device/personal items within reach clutter free environment maintained lighting adjusted nonskid shoes/slippers when out of bed room organization consistent safety round/check completed Taken 10/26/20232199 by Roberta Wise RN Safety Promotion/Fall Prevention: activity supervised assistive device/personal items within reach clutter free environment maintained lighting adjusted nonskid shoes/slippers when out of bed room organization consistent safety round/check completed Taken 10/26/20231999 by Roberta Wise RN Safety Promotion/Fall Prevention: activity supervised assistive device/personal items within reach clutter free environment maintained lighting adjusted nonskid shoes/slippers when out of bed room organization consistent safety round/check completed Intervention: Prevent Skin Injury Recent Flowsheet Documentation Taken 10/27/2023 by Roberta Wise RN Body Position: position changed independently Taken 10/26/20232199 by Roberta Wise RN Body Position: position changed independently Taken 10/26/20231999 by Roberta Wise RN Body Position: position changed independently Skin Protection: transparent dressing maintained tubing/devices free from skin contact Intervention: Prevent and Manage VTE (Venous Thromboembolism) Risk Recent Flowsheet Documentation Taken 10/27/2023 0000 by Roberta Wise RN Activity Management: activity encouraged Range of Motion: active ROM (range of motion) encouraged Taken 10/26/20232199 by Roberta Wise RN Activity Management: activity encouraged Taken 10/26/20231999 by Roberta Wise RN Activity Management: activity encouraged Range of Motion: active ROM (range of motion) encouraged Intervention: Prevent Infection Recent Flowsheet Documentation Taken 10/27/2023 0000 by Roberta Wise RN Infection Prevention: hand hygiene promoted rest/sleep promoted single patient room provided Taken 10/26/20232199 by Roberta Wise RN Infection Prevention: hand hygiene promoted rest/sleep promoted single patient room provided Taken 10/26/20231999 by Roberta Wise RN Infection Prevention: hand hygiene promoted rest/sleep promoted single patient room provided Goal: Optimal Comfort and Wellbeing Outcome: Ongoing, Progressing Goal: Readiness for Transition of Care Outcome: Ongoing, Progressing Problem: Device-Related Complication Risk (Hemodialysis) Goal: Safe, Effective Therapy Delivery Outcome: Ongoing, Progressing Intervention: Optimize Device Care and Function Recent Flowsheet Documentation Taken 10/26/2023 2000 by Roberta Wise RN Medication Review/Management: medications reviewed Problem: Hemodynamic Instability (Hemodialysis) Goal: Effective Tissue Perfusion Outcome: Ongoing, Progressing Problem: Infection (Hemodialysis) Goal: Absence of Infection Signs and Symptoms Outcome: Ongoing, Progressing * Kody Boyer RN - 10/26/2023 4:[address] Fabian office to confirm consult. Spoke with Marie and someone did call the consult. * Eugenie Carroll OT - 10/26/2023 3:00 PM EDT Goal Outcome Evaluation: Plan of Care Reviewed With: patient Outcome Evaluation: Pt presents to OT eval indep. No therapy needs identified at this time. Please reconsult if there is a change in medical status. Anticipated Discharge Disposition (OT): home * Selina Lucas PT - 10/26/2023 2:53 PM EDT Goal Outcome Evaluation: Plan of Care Reviewed With: patient Progress: no change (PT IE) Outcome Evaluation: PT eval complete. Pt presents at baseline for functional mobility including ambulation. IPPT services not warranted, PT signing off. PT rec home with assist at d/c. Anticipated Discharge Disposition (PT): home with assist * Margarita Menendez RN - 10/26/2023 2:00 PM EDT Goal Outcome Evaluation: Scheduled HD completed. Tx ended 15 mins early per pts request pt stated I feel like I am having a anxiety attack Educated pt on possible outcome when tx is ended early Pt voices understanding. Blood returned to pt. Called report to JANA Valdovinos. Problem: Device-Related Complication Risk (Hemodialysis) Goal: Safe, Effective Therapy Delivery Outcome: Ongoing, Progressing Intervention: Optimize Device Care and Function Recent Flowsheet Documentation Taken 10/26/2023 1017 by Margarita Menendez RN Medication Review/Management: medications reviewed Problem: Hemodynamic Instability (Hemodialysis) Goal: Effective Tissue Perfusion Outcome: Ongoing, Progressing Problem: Infection (Hemodialysis) Goal: Absence of Infection Signs and Symptoms Outcome: Ongoing, Progressing documented in this encounter OR Notes * Op Note - Dontae Gruber MD - 10/27/2023 3:49 PM EDT General Surgery Operative Note Aiden Stauffer Jr. 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 The risks and benefits of arteriovenous fistula ligation were rehashed. Our discussion included butwas not limited to: bleeding, infection, injury to adjacent viscera (nerves, vessels etc.), wound infection, need for reintervention, chronic pain, permanent neurovascular/neuromuscular deficits, andmedical issues from a cardiopulmonary and deep venous thrombosis standpoint. All questions were answered and they understood and wished to proceed with surgical intervention. Procedure: After informed consent, the patient was taken to the operating room and placed in the supine position. Appropriate antibiotic prophylaxis was given to the patient. General anesthesia was induced, theleft upper extremity was then prepped and draped in the standard sterile fashion. An Ioban was placed on the skin. A time out was observed. A transverse incision directly over the proximal portion of the arteriovenous fistula was created with a scalpel. I dissected down into the subcutaneous fat with the 10 blade scalpel. The scissors were then used to dissect the dilated cephalic vein from the surrounding tissue. This was encircled with a 2-0 silk suture x 3 and ligated. The subcutaneous elements were reapproximated with interrupted3-0 Vicryl. The skin was closed with interrupted 4-0 Monocryl. Mastisol, Steri-Strips, and a coverderm were placed on the incision. All lap and needle counts were reported as correct at the end of the procedure ??2. The patient wasthen transferred to the PACU in stable condition. Dontae Gruber MD Date: 10/27/2023 Time: 16:31 EDT documented in this encounter ED Notes * Abbie Dwyer, RN - 10/26/2023 8:46 AM EDT Images from the original note were not included. Aiden Stauffer Jr. Nursing Report ED to Floor: Mental status: ALERT AND ORIENTED X 4 Ambulatory status: UP AD SHELIA Oxygen Therapy: 4L NC DUE TO SLEEP APNEA Cardiac Rhythm: NSR Admitted from: ED Safety Concerns: NONE Social Issues: NONE ED Room #: 16 ED Nurse Phone Extension - [phone] or may call [phone]. HPI: Chief Complaint Patient presents with fistula problem Past Medical History: Past Medical History: Diagnosis Date Diabetes mellitus Dialysis patient Hemorrhage THROAT VARICIES Kidney failure Liver transplanted Past Surgical History: Past Surgical History: Procedure Laterality Date ARTERIOVENOUS FISTULA Left 2019 CARDIAC CATHETERIZATION times 2022 CHOLECYSTECTOMY ENDOSCOPY N/A 05/04/2020 Procedure: ESOPHAGOGASTRODUODENOSCOPY; Surgeon: Dewey Betancourt MD; Location: [facility]; Service: Gastroenterology; Laterality: N/A; LUMBAR LAMINECTOMY DISCECTOMY DECOMPRESSION N/A 04/29/2020 Procedure: LUMBAR LAMINECTOMY DISCECTOMY DECOMPRESSION POSTERIOR L4-5; Surgeon: Yinka Garnica MD; Location: [facility]; Service: Neurosurgery; Laterality: N/A; Admitting Doctor: Jennifer Davison MD Consulting Provider(s): Consults Date and Time Order Name Status Description 10/26/2023 6:26 AM Inpatient Nephrology Consult 10/26/2023 3:51 AM Inpatient General Surgery Consult Admitting Diagnosis: The primary encounter diagnosis was Occlusion of arteriovenous dialysis graft. Diagnoses of Cellulitis of left arm, Pneumonia of right lower lobe due to infectious organism, and ESRD on hemodialysis were also pertinent to this visit. Most Recent Vitals: Vitals: 10/26/23 0428 10/26/23 0458 10/26/23 0633 10/26/23 0703 BP: 145/86 152/82 (!) 153/101 143/72 Pulse: 108 89 96 96 Resp: Temp: TempSrc: SpO2: 98% 93% 90% 98% Weight: Height: Active LDAs/IV Access: Lines, Drains & Airways Active LDAs Name Placement date Placement time Site Days Peripheral IV 10/26/23 0042 Anterior;Distal;Right;Upper Arm 10/26/23 0042 Arm less than 1 Hemodialysis Cath Double 08/11/23 1553 -- external jugular 75 Hemodialysis Cath Double -- -- Subclavian -- Labs (abnormal labs have a star): Labs Reviewed COMPREHENSIVE METABOLIC PANEL - Abnormal; Notable for the following components: Result Value Glucose 104 (*) BUN 60 (*) Creatinine 9.74 (*) Potassium 5.8 (*) Alkaline Phosphatase 134 (*) BUN/Creatinine Ratio 6.2 (*) Anion Gap 18.0 (*) eGFR 6.0 (*) All other components within normal limits Narrative: GFR Normal >60 Chronic Kidney Disease <60 Kidney Failure <15 APTT - Abnormal; Notable for the following components: PTT 29.0 (*) All other components within normal limits Narrative: PTT = The equivalent PTT values for the therapeutic range of heparin levels at 0.3 to 0.5 U/ml are 60 to 70 seconds. PROCALCITONIN - Abnormal; Notable for the following components: Procalcitonin 0.44 (*) All other components within normal limits Narrative: As a Marker for Sepsis (Non-Neonates): 1. <0.5 ng/mL represents a low risk of severe sepsis and/or septic shock. 2. >2 ng/mL represents a high risk of severe sepsis and/or septic shock. As a Marker for Lower Respiratory Tract Infections that require antibiotic therapy: PCT on Admission Antibiotic Therapy 6-12 Hrs later >0.5 Strongly Recommended >0.25 - <0.5 Recommended 0.1 - 0.25 Discouraged Remeasure/reassess PCT <0.1 Strongly Discouraged Remeasure/reassess PCT As 28 day mortality risk marker: Change in Procalcitonin Result (>80% or <=80%) if Day 0 (or Day 1) and Day 4 values are available. Refer to [email or web address]-lsm-[email or web address] Change in PCT <=80% A decrease of PCT levels below or equal to 80% defines a positive change in PCT test result representing a higher risk for 28-day all-cause mortality of patients diagnosed with severe sepsis for septic shock. Change in PCT >80% A decrease of PCT levels of more than 80% defines a negative change in PCT result representing a lower risk for 28-day all-cause mortality of patients diagnosed with severe sepsis or septic shock. CBC WITH AUTO DIFFERENTIAL - Abnormal; Notable for the following components: RBC 3.58 (*) Hemoglobin 11.3 (*) Hematocrit 35.7 (*) MCV 99.7 (*) Immature Grans % 3.6 (*) Immature Grans, Absolute 0.19 (*) All other components within normal limits COMPREHENSIVE METABOLIC PANEL - Abnormal; Notable for the following components: BUN 62 (*) Creatinine 10.13 (*) Potassium 5.4 (*) CO2 21.0 (*) Alkaline Phosphatase 133 (*) BUN/Creatinine Ratio 6.1 (*) Anion Gap 18.0 (*) eGFR 5.7 (*) All other components within normal limits Narrative: GFR Normal >60 Chronic Kidney Disease <60 Kidney Failure <15 CBC WITH AUTO DIFFERENTIAL - Abnormal; Notable for the following components: RBC 3.62 (*) Hemoglobin 11.4 (*) MCV 103.6 (*) MCHC 30.4 (*) Immature Grans % 3.7 (*) Immature Grans, Absolute 0.20 (*) All other components within normal limits RESPIRATORY PANEL PCR W/ COVID-19 (SARS-COV-2), DRIVER MERCHANDISER SWAB IN UTM/VTP, 2 HR TAT - Normal Narrative: In the setting of a positive respiratory panel with a viral infection PLUS a negative procalcitoninwithout other underlying concern for bacterial infection, consider observing off antibiotics or discontinuation of antibiotics and continue supportive care. If the respiratory panel is positive for atypical bacterial infection (Bordetella pertussis, Chlamydophila pneumoniae, or Mycoplasma pneumoniae), consider antibiotic de-escalation to target atypical bacterial infection. PROTIME-INR - Normal LACTIC ACID, PLASMA - Normal MAGNESIUM - Normal BLOOD CULTURE BLOOD CULTURE RESPIRATORY CULTURE MRSA SCREEN, PCR POTASSIUM POCT GLUCOSE FINGERSTICK POCT GLUCOSE FINGERSTICK POCT GLUCOSE FINGERSTICK POCT GLUCOSE FINGERSTICK POCT GLUCOSE FINGERSTICK CBC AND DIFFERENTIAL Narrative: The following orders were created for panel order CBC & Differential. Procedure Abnormality Status --------- ------ CBC Auto Differential[[id number]] Abnormal Final result Please view results for these tests on the individual orders. Meds Given in ED: Medications sodium chloride 0.9 % flush 10 mL (has no administration in time range) vancomycin 2750 mg/500 mL 0.9% NS IVPB ([facility]) ( Intravenous Currently Infusing 10/26/23 0845) Pharmacy to dose vancomycin (has no administration in time range) HYDROmorphone (DILAUDID) injection 0.25 mg (has no administration in time range) naloxone (NARCAN) injection 0.4 mg (has no administration in time range) piperacillin-tazobactam (ZOSYN) 4.5 g IVPB in 100 mL NS MBP (CD) (has no administration in time range) aspirin chewable tablet 81 mg (has no administration in time range) pantoprazole (PROTONIX) EC tablet 40 mg (40 mg Oral Given 10/26/23 0639) sodium chloride 0.9 % flush 10 mL (has no administration in time range) sodium chloride 0.9 % flush 10 mL (has no administration in time range) sodium chloride 0.9 % infusion 40 mL (has no administration in time range) acetaminophen (TYLENOL) tablet 650 mg (has no administration in time range) melatonin tablet 5 mg (has no administration in time range) sennosides-docusate (PERICOLACE) 8.6-50 MG per tablet 2 tablet (has no administration in time range) And polyethylene glycol (MIRALAX) packet 17 g (has no administration in time range) And bisacodyl (DULCOLAX) EC tablet 5 mg (has no administration in time range) And bisacodyl (DULCOLAX) suppository 10 mg (has no administration in time range) vancomycin (dosing per levels) (has no administration in time range) calcium acetate (PHOS BINDER)) capsule 667 mg (has no administration in time range) calcitriol (ROCALTROL) capsule 0.25 mcg (has no administration in time range) NIFEdipine XL (PROCARDIA XL) 24 hr tablet 90 mg (has no administration in time range) hydrALAZINE (APRESOLINE) tablet 100 mg (has no administration in time range) folic acid (FOLVITE) tablet 1,000 mcg (has no administration in time range) fenofibrate (TRICOR) tablet 145 mg (has no administration in time range) carBAMazepine (TEGretol) tablet 200 mg (has no administration in time range) carvedilol (COREG) tablet 25 mg (has no administration in time range) cinacalcet (SENSIPAR) tablet 90 mg (has no administration in time range) cycloSPORINE modified (NEORAL) capsule 100 mg (has no administration in time range) gabapentin (NEURONTIN) capsule 300 mg (has no administration in time range) promethazine (PHENERGAN) tablet 12.5 mg (has no administration in time range) Or promethazine (PHENERGAN) suppository 12.5 mg (has no administration in time range) dextrose (GLUTOSE) oral gel 15 g (has no administration in time range) dextrose (D50W) (25 g/50 mL) IV injection 25 g (has no administration in time range) glucagon (GLUCAGEN) injection 1 mg (has no administration in time range) Insulin Lispro (humaLOG) injection 2-7 Units ( Subcutaneous Not Given 10/26/23 0845) ! Med Rec Consult - delete when completed (has no administration in time range) ondansetron (ZOFRAN) injection 4 mg (4 mg Intravenous Given 10/26/23 0117) Morphine sulfate (PF) injection 4 mg (4 mg Intravenous Given 10/26/23116) HYDROmorphone (DILAUDID) injection 0.5 mg (0.5 mg Intravenous Given 10/26/23240) prochlorperazine (COMPAZINE) injection 10 mg (10 mg Intravenous Given 10/26/23240) piperacillin-tazobactam (ZOSYN) 4.5 g IVPB in 100 mL NS MBP (CD) (0 g Intravenous Stopped 10/26/23640) sodium zirconium cyclosilicate (LOKELMA) pack 10 g (10 g Oral Given 10/26/23639) Pharmacy to dose vancomycin, * Terry Burgess MD - 10/25/2023 11:04 PM EDTAssociated Order(s): ECG 12 Lead Subjective History of Present Illness Is a 48-year-old male with past medical history of end-stage renal disease on hemodialysis presenting to the emergency department with left arm pain. The patient has had a fistula in left lower arm that is been causing some issues for the last few months. He was seen back in July and has evidence of obstruction of his fistulogram. Is currently receiving dialysis through a temporary port in his right upper chest. Patient is scheduled for revision in a month, however he has been having some pain in the arm. Is dull in nature. Located over the site. He also noticed some redness over his fistula site. He is not have any bleeding or discharge. Denies any fevers or chills. No trauma to the area. States that he has been compliant with his medications as well as his dialysis regimen. Patient denies any fevers or chills. No headache or change in vision. No focal weakness. No chest pain or shortness of breath. No abdominal pain or vomiting. History provided by: Patient talent acquisition assistant used: No Review of Systems Constitutional: Negative for chills and fever. HENT: Negative for congestion, ear pain and sore throat. Eyes: Negative for visual disturbance. Respiratory: Negative for shortness of breath. Cardiovascular: Negative for chest pain. Gastrointestinal: Negative for abdominal pain. Genitourinary: Negative for difficulty urinating. Musculoskeletal: Negative for arthralgias. Skin: Positive for wound. Negative for rash. Neurological: Negative for dizziness, weakness and numbness. Psychiatric/Behavioral: Negative for agitation. Past Medical History: Diagnosis Date Diabetes mellitus Dialysis patient Hemorrhage THROAT VARICIES Kidney failure Liver transplanted Allergies Allergen Reactions Tacrolimus Other (See Comments) and Unknown - High Severity Anxious feeling and muscle jerking. TOLERATED ENVARSUS BETTER THAN PROGRAF. Codeine Anxiety and Unknown - Low Severity Calcitriol GI Intolerance Past Surgical History: Procedure Laterality Date ARTERIOVENOUS FISTULA Left 2019 CARDIAC CATHETERIZATION times 2022 CHOLECYSTECTOMY ENDOSCOPY N/A 05/04/2020 Procedure: ESOPHAGOGASTRODUODENOSCOPY; Surgeon: Dewey Betancourt MD; Location: [facility]; Service: Gastroenterology; Laterality: N/A; LUMBAR LAMINECTOMY DISCECTOMY DECOMPRESSION N/A 04/29/2020 Procedure: LUMBAR LAMINECTOMY DISCECTOMY DECOMPRESSION POSTERIOR L4-5; Surgeon: Yinka Garnica MD; Location: [facility]; Service: Neurosurgery; Laterality: N/A; History reviewed. No pertinent family history. Social History Socioeconomic History Marital status: Tobacco Use Smoking status: Never Passive exposure: Never Smokeless tobacco: Never Vaping Use Vaping status: Never Used Substance and Sexual Activity Alcohol use: Never Drug use: Never Sexual activity: Defer Objective Physical Exam Vitals and nursing note reviewed. Constitutional: General: He is not in acute distress. Appearance: He is not ill-appearing or toxic-appearing. HENT: Mouth/Throat: Pharynx: No posterior oropharyngeal erythema. Eyes: Extraocular Movements: Extraocular movements intact. Pupils: Pupils are equal, round, and reactive to light. Cardiovascular: Rate and Rhythm: Normal rate and regular rhythm. Pulmonary: Effort: Pulmonary effort is normal. No respiratory distress. Abdominal: General: Abdomen is flat. There is no distension. Palpations: There is no mass. Tenderness: There is no abdominal tenderness. There is no guarding or rebound. Musculoskeletal: General: No deformity. Normal range of motion. Comments: Patient does have evidence of fistula on the left lower forearm. There is some redness associated with it, however there is no obvious fluctuance or crepitus. The patient does have good thrill distally. There is no evidence of ischemia. Neurological: General: No focal deficit present. Mental Status: He is alert. Sensory: No sensory deficit. Motor: No weakness. ECG 12 Lead Date/Time: 10/26/2023 3:57 AM Performed by: Terry Burgess MD Authorized by: Beulah Fleming DO Interpreted by ED physician Comparison: compared with previous ECG Similar to previous ECG Rhythm: sinus rhythm Rate: normal BPM: 84 Conduction: 1st degree ST Segments: ST segments normal T Waves: T waves normal Other: no other findings Clinical impression: normal ECG Comments: Interpretation: EKG was directly visualized by myself, interpretations as documented in hospital course. ED Course ED Course as of 10/26/23356Oct 25, [id number] BP(!): 220/115 [JK] 2308 Temp: 98.6 ??F (37 ??C) [JK] 2308 Temp src: Oral [JK] 2308 Heart Rate: 96 [JK] 2308 Resp: 26 [JK] 2308 SpO2: 97 % [JK] 2308 Device (Oxygen Therapy): room air Interpretation: Patient's repeat vitals, telemetry tracing, and pulse oximetry tracing were directly viewed and interpreted by myself. Normal sinus rhythm [JK] Bobbi Oct 26, 2023 0353 aPTT(!) [JK] 0353 Lactic Acid, Plasma [JK] 0353 Procalcitonin(!) [JK] 0353 Comprehensive Metabolic Panel(!) [JK] 0353 Magnesium [JK] 0353 Protime-INR [JK] 0353 CBC & Differential(!) Interpretation: Laboratory studies were reviewed and interpreted directly by myself. Coagulation studies normal, lactic acid normal, procalcitonin was marginal at 0.44, CMP shows some chronic kidney disease with a BUN of 16 creatinine of 9.74, potassium is elevated 5.8, however there was hemolysis, magnesium normal, CBC shows a chronic anemia with a hemoglobin of 11.3 [JK] 0355 XR Chest 1 View Interpretation: Imaging was directly visualized by myself, per my interpretations, chest x-ray showed right lower lobe pneumonia. [JK] 0355 On reevaluation, the patient continues to endorse pain in the area. He also has some findings concerning for pneumonia on x-ray. With regards to his graft I do believe he may have had a small amount of cellulitis with worsening occlusion. Given his significant disease, I do feel he requires admission to the hospital for further evaluation and treatment. Patient was started on broad- spectrum antibiotics. Admitted to the hospital. [JK] 0355 Based on the patient's presentation, history and diffuse work-up in the emergency department, the patient is deemed appropriate for admission to the hospital for further evaluation and treatment. This was discussed with the patient at bedside. They are in agreement with the current medical management. Admitting physician: Dr. Fleming Discussion was had with admitting physician regarding the laboratory and imaging findings. We did discuss current therapeutics in the emergency department and progression of the patient. Working diagnosis was conveyed to the admitting physician, as well as current status and prognosis for the patient. They are in agreement with these findings and have accepted admission. Shared decision making: After full review of the patient's clinical presentation, review of any work-up including but not limited to laboratory studies and radiology obtained, I had a discussion with the patient. Treatment options were discussed as well as the risks, benefits and consequences. I discussed all findings with the patient and family members if available. During the discussion, treatment goals were understood by all as well as any misconceptions which were addressed with the patient. Ample time was given for any questions they may have had. They are in agreement with the treatment plan as well as final disposition. [JK] ED Course User Index [JK] Terry Burgess MD Medical Decision Making This is a 48-year-old male with a history of end-stage renal disease presented to the emergency department with some pain in his left lower arm. Patient has had issues with his graft site for the last few months. He is scheduled for revision. Patient is concerned due to some worsening pain and redness in the area. The patient findings are consistent with occlusion, however there is no overt ischemia, abscess or active bleeding. The patient is significantly hypertensive at this time which I do believe is likely related to his end-stage renal disease. IV access will be established and the patient. Provided symptomatic treatment. Placed on continuous telemetry monitoring. Workup initiated. Differential diagnosis: Cellulitis, malfunctioning AV fistula, electrolyte abnormality, acute kidney injury, hypertensive urgency Problems Addressed: Cellulitis of left arm: complicated acute illness or injury ESRD on hemodialysis: complicated acute illness or injury Occlusion of arteriovenous dialysis graft: complicated acute illness or injury Pneumonia of right lower lobe due to infectious organism: complicated acute illness or injury Amount and/or Complexity of Data Reviewed External Data Reviewed: labs, radiology, ECG and notes. Details: External laboratories, imaging as well as notes were reviewed personally by myself. All relevant studies were used to guide decision making. Date of previous record: 08/10/2023 Source of note: Admission record Summary: Patient was seen and evaluated for similar symptoms. I did review basic laboratory studieson file as well as previous fistulogram and EKG. Records reviewed Labs: ordered. Decision-making details documented in ED Course. Radiology: ordered and independent interpretation performed. Decision-making details documented in ED Course. ECG/medicine tests: ordered and independent interpretation performed. Decision- making details documented in ED Course. Risk Prescription drug management. Decision regarding hospitalization. Final diagnoses: Occlusion of arteriovenous dialysis graft Cellulitis of left arm Pneumonia of right lower lobe due to infectious organism ESRD on hemodialysis ED Disposition ED Disposition ED Disposition Decision to Admit Condition -- Comment Level of Care: Telemetry [5] Diagnosis: Arm pain [[id number]] Admitting Physician: BEULAH FLEMING [[id number]] Attending Physician: BEULAH FLEMING [[id number]] Bed Request Comments: tele No follow-up provider specified. Medication List No changes were made to your prescriptions during this visit. Terry Burgess MD 10/26/23 0356 Terry Burgess MD 10/26/23 0357 documented in this encounter Miscellaneous Notes * Case Management/Social Work - Rose Be RN - 11/02/2023 8:13 AM EDT Continued Stay Note KALEB Robertson Patient Name: Aiden Stauffer Jr. Today's Date: 11/02/2023 Admit Date: 10/25/2023 Plan: home Discharge Plan Row Name 11/02/23 0809 Plan Plan home Patient/Family in Agreement with Plan yes Plan Comments I met with this patient regarding his discharge plans. He stated that he is able to infuse his IV antibiotics into his HD at home and draw his own labs and send off. CM asked him to go over that with the ID MD to make certain that is alright with them. The hospitalist was notified of the patient's bipap pressures and rate in order to upload it in [facility] for Anton, with [employer], to possibly get the patient a new home cpap machine. The plan is home with his to transport. CM will follow. Final Discharge Disposition Code 01 - home or self-care Discharge Codes No documentation. Expected Discharge Date and Time Expected Discharge Date Expected Discharge Time Nov 03, 2023 Rose Be RN * Case Management/Social Work - Rose Be RN - 11/01/2023 8:22 AM EDT Continued Stay Note Guadalupe Patient Name: Aiden Stauffer Jr. Today's Date: 11/01/2023 Admit Date: 10/25/2023 Plan: home Discharge Plan Row Name 11/01/23 0818 Plan Plan home Patient/Family in Agreement with Plan yes Plan Comments I spoke with this patient regarding my [facility] concerning his receiving a new home bipap. Anton asked the CM to ask the MD to upload in [employer] the settings for his in house bipap. This might allow Pepper to submit for a new home bipap machine as theone he has now he is unable to be compliant with due to his feeling of suffocation . CM did notify the MD. The plan remains home with to transport. He will need IV antibiotics set up. [facility] has been notified and are following. CM will follow. Final Discharge Disposition Code 01 - home or self-care Discharge Codes No documentation. Expected Discharge Date and Time Expected Discharge Date Expected Discharge Time Oct 30, 2023 Rose Be RN * Case Management/Social Work - Rose Be RN - 10/30/2023 3:36 PM EDT Continued Stay Note Marcelo Patient Name: Aiden Stauffer Jr. Today's Date: 10/30/2023 Admit Date: 10/25/2023 Plan: home Discharge Plan Row Name 10/30/23 1532 Plan Plan home Patient/Family in Agreement with Plan yes Plan Comments This patient called me into the room to let me know he has had numerous sleep studiesand setting changes for his home bipap machine through [employer], but he cannot tolerate it. He states he can tolerate the one at the hospital though and needs a home bipap. CM called Anton, with [employer]. He is looking into whether or not they can change the settings on his home machine to mimic those on the hospital machine. He will call CM back tomorrow. CM will follow. Final Discharge Disposition Code 01 - home or self-care Discharge Codes No documentation. Expected Discharge Date and Time Expected Discharge Date Expected Discharge Time Oct 30, 2023 Rose Be RN * Case Management/Social Work - Rose Be RN - 10/30/2023 12:25 PM EDT Continued Stay Note Marcelo Patient Name: Aiden Stauffer Jr. Today's Date: 10/30/2023 Admit Date: 10/25/2023 Plan: home Discharge Plan Row Name 10/30/23 1224 Plan Plan home Patient/Family in Agreement with Plan yes Plan Comments This patient was in HD when I attempted to see him this morning. His plan is home at discharge with his to transport. He will need IV home antibiotics set when ID order given.He has HD at home 4x/wk. CM will follow. Final Discharge Disposition Code 01 - home or self-care Discharge Codes No documentation. Expected Discharge Date and Time Expected Discharge Date Expected Discharge Time Oct 30, 2023 Rose Be RN * Case Management/Social Work - Rose Be RN - 10/27/2023 7:04 AM EDT Discharge Planning Assessment Guadalupe Patient Name: Aiden Stauffer Jr. Today's Date: 10/27/2023 Admit Date: 10/25/2023 Plan: home Discharge Needs Assessment Row Name 10/27/23 0700 Living Environment People in Home spouse Name(s) of People in Home Kym Current Living Arrangements home Primary Care Provided by self;spouse/significant other Transition Planning Patient/Family Anticipates Transition to home with family Discharge Needs Assessment Readmission Within the Last 30 Days no previous admission in last 30 days Equipment Currently Used at Home bipap;shower chair Concerns to be Addressed discharge planning;basic needs Discharge Plan Row Name 10/27/23 0700 Plan Plan home Patient/Family in Agreement with Plan yes Plan Comments I spoke with this patient's on the phone to complete the IDP. She stated that they live in [facility]. He is independent with self care, with some assist to dress. He is dependent with all other activities of daily living. He is independent with mobility. PT and OT were consulted. He uses a SB at home, and the believes he either uses a cpap or bipap at home as well. He has HD at home 4x/week per . He anticipates returning home after this hospitalization, and hiswife can transport. Case management will continue to follow his plan of care and assist with any discharge planning needs. Final Discharge Disposition Code 01 - home or self-care Continued Care and Services - Admitted Since 10/25/2023 No active coordination exists for this encounter. Expected Discharge Date and Time Expected Discharge Date Expected Discharge Time Oct 30, 2023 Demographic Summary Row Name 10/27/23 0659 General Information General Information Comments I confirmed that Edgar Fournier is Mr Stauffer's PCP and he has [employer] Medicare Functional Status Row Name 10/27/23 0659 Functional Status, IADL Medications completely dependent Meal Preparation completely dependent Housekeeping completely dependent Laundry completely dependent Shopping completely dependent Psychosocial No documentation. Abuse/Neglect No documentation. Legal No documentation. Substance Abuse No documentation. Patient Forms No documentation. Rose Be RN documented in this encounter Plan of Treatment Pending Results Name Type Priority Associated Diagnoses Date /Time ECG 12 Lead ECG Routine 10/26/2023 3: 57 AM EDT Scheduled Orders Name Type Priority Associated Diagnoses Orde r Schedule Respiratory Culture - Sputum, Cough Microbiology Urgent Once for 1 Occurrences starting 10/26/2023 until 10/26/2023 documented as of this encounter Procedures Procedure Name Priority Date/Time Associated Diagnosis Comments POCT GLUCOSE FINGERSTICK Routine 11/02/2023 3:54 PM EDT POCT GLUCOSE FINGERSTICK Routine 11/02/2023 11:04 AM EDT HEMODIALYSIS INPATIENT Routine 10:41 AM EDT CBC (NO DIFF) STAT 11/02/2023 7:51 AM EDT BASIC METABOLIC PANEL STAT 11/02/2023 7:32 AM EDT POCT GLUCOSE FINGERSTICK Routine 11/02/2023 6:59 AM EDT POCT GLUCOSE FINGERSTICK Routine 11/01/2023 8:18 PM EDT POCT GLUCOSE FINGERSTICK Routine 11/01/2023 5:59 PM EDT IR NON-TUNNELED TEMP DIALYSIS ACCESS Routine 11/01/2023 1:04 PM EDT POCT GLUCOSE FINGERSTICK Routine 11/01/2023 11:09 AM EDT HEMODIALYSIS INPATIENT Routine 9:10 AM EDT POCT GLUCOSE FINGERSTICK Routine 11/01/2023 7:21 AM EDT CBC (NO DIFF) Routine 11/01/2023 5:04 AM EDT COMPREHENSIVE METABOLIC PANEL Routine 11/01/2023 5:04 AM EDT POCT GLUCOSE FINGERSTICK Routine 10/31/2023 8:13 PM EDT POCT GLUCOSE FINGERSTICK Routine 10/31/2023 4:07 PM EDT POCT GLUCOSE FINGERSTICK Routine 10/31/2023 11:41 AM EDT POCT GLUCOSE FINGERSTICK Routine 10/31/2023 8:03 AM EDT CBC WITH AUTO DIFFERENTIAL Routine 10/31/2023 5:04 AM EDT CBC AND DIFFERENTIAL Routine 10/31/2023 5:04 AM EDT BASIC METABOLIC PANEL Routine 10/31/2023 5:04 AM EDT POCT GLUCOSE FINGERSTICK Routine 10/30/2023 8:26 PM EDT POCT GLUCOSE FINGERSTICK Routine 10/30/2023 5:18 PM EDT CATHETER TIP CULTURE Routine 10/30/2023 4:07 PM EDT IR REMOVAL TUNNEL CV CATH WO PORT Routine 10/30/2023 4:06 PM EDT POCT GLUCOSE FINGERSTICK Routine 10/30/2023 12:04 PM EDT CBC WITH AUTO DIFFERENTIAL Routine 10/30/2023 4:18 AM EDT CBC AND DIFFERENTIAL Routine 10/30/2023 4:18 AM EDT VANCOMYCIN, RANDOM Routine 10/30/2023 4: 18 AM EDT BASIC METABOLIC PANEL Routine 10/30/2023 4:18 AM EDT POCT GLUCOSE FINGERSTICK Routine 10/29/2023 8:07 PM EDT POCT GLUCOSE FINGERSTICK Routine 10/29/2023 4:23 PM EDT POCT GLUCOSE FINGERSTICK Routine 10/29/2023 11:38 AM EDT HEMODIALYSIS INPATIENT Routine 10:33 AM EDT POCT GLUCOSE FINGERSTICK Routine 10/29/2023 7:28 AM EDT CBC WITH AUTO DIFFERENTIAL Routine 10/29/2023 5:03 AM EDT CBC AND DIFFERENTIAL Routine 10/29/2023 5:03 AM EDT BASIC METABOLIC PANEL Routine 10/29/2023 5:03 AM EDT POCT GLUCOSE FINGERSTICK Routine 10/28/2023 8:04 PM EDT POCT GLUCOSE FINGERSTICK Routine 10/28/2023 5:42 PM EDT BLOOD CULTURE Routine 10/28/2023 1:42 PM EDT BLOOD CULTURE Routine 10/28/2023 1:42 PM EDT POCT GLUCOSE FINGERSTICK Routine 10/28/2023 1:10 PM EDT POCT GLUCOSE FINGERSTICK Routine 10/28/2023 7:54 AM EDT CBC WITH AUTO DIFFERENTIAL Urgent 10/28/2023 4:39 AM EDT CBC AND DIFFERENTIAL Urgent 10/28/2023 4:39 AM EDT BASIC METABOLIC PANEL Routine 10/28/2023 4:39 AM EDT POCT GLUCOSE FINGERSTICK Routine 10/27/2023 8:[address] ABDOMEN PELVIS WO CONTRAST Routine 10/27/2023 6:01 PM EDT POCT GLUCOSE FINGERSTICK Routine 10/27/2023 5:33 PM EDT ARTERIOVENOUS FISTULA FORMATION 10/27/2023 3:03 PM EDT HEMODIALYSIS INPATIENT Routine 4 8:16 AM EDT POCT GLUCOSE FINGERSTICK Routine 10/27/2023 7:46 AM EDT CBC WITH AUTO DIFFERENTIAL Urgent 10/27/2023 5:00 AM EDT HEPATITIS PANEL, ACUTE Urgent 4 5:00 AM EDT CBC AND DIFFERENTIAL Urgent 10/27/2023 5:00 AM EDT VANCOMYCIN, RANDOM STAT 10/27/2023 5: 00 AM EDT COMPREHENSIVE METABOLIC PANEL Urgent 10/27/2023 5:00 AM EDT POCT GLUCOSE FINGERSTICK Routine 10/26/2023 3:05 PM EDT POTASSIUM Timed 10/26/2023 2:23 PM EDT HEMODIALYSIS INPATIENT Routine 4 10:18 AM EDT CBC WITH AUTO DIFFERENTIAL Urgent 10/26/2023 7:03 AM EDT COMPREHENSIVE METABOLIC PANEL Urgent 10/26/2023 7:03 AM EDT BLOOD CULTURE STAT 10/26/2023 5:36 AM EDT RESPIRATORY PANEL PCR W/ COVID-19 (SARS-COV-2), DRIVER MERCHANDISER SWAB IN UTM/VTP, 2 HR TAT Urgent 10/26/2023 5:15 AM EDT MRSA DNA PROBE Urgent 10/26/2023 5:15 AM EDT BLOOD CULTURE ID Routine 10/26/2023 5:00 AM EDT BLOOD CULTURE STAT 10/26/2023 5:00 AM EDT ECG 12-LEAD Routine 10/26/2023 3:57 AM EDT ECG 12-LEAD STAT 10/26/2023 1:01 AM EDT PROCALCITONIN STAT 10/26/2023 12:33 AM EDT CBC WITH AUTO DIFFERENTIAL STAT 10/26/2023 12:33 AM EDT APTT STAT 10/26/2023 12:33 AM EDT PROTIME-INR STAT 10/26/2023 12:33 AM EDT CBC AND DIFFERENTIAL STAT 10/26/2023 12:33 AM EDT MAGNESIUM STAT 10/26/2023 12:33 AM EDT LACTIC ACID, PLASMA STAT 10/26/2023 1 2:33 AM EDT COMPREHENSIVE METABOLIC PANEL STAT 10/26/2023 12:33 AM EDT XR CHEST 1 VW STAT 10/25/2023 11:15 PM EDT documented in this encounter Results * POC Glucose Once (11/02/2023 3:54 PM EDT) [facility] Glucose 124 70 - 130 mg/dL 11/02/2023 3:55 PM EDT [facility] Blood 11/02/2023 3:54 PM EDT 11/02/2023 3:55 PM EDT Kevin Muller MD POINT OF CARE TEST ORDERABLES Final Result [facility]
[address] [place] [address], [place] [phone] * (ABNORMAL) POC Glucose Once (11/02/2023 11:04 AM EDT) [facility] Glucose 264(H) 70 - 130 mg/dL 11/02/2023 11:05 AM EDT [facility] Blood 11/02/2023 11:0 4 AM EDT 11/02/2023 11:05 AM EDT Kevin Muller MD POINT OF CARE TEST ORDERABLES Final Result [facility]
[address] [place] [address], * (ABNORMAL) CBC (No Diff) (11/02/2023 7:51 AM EDT) Pathologist [facility] WBC 6.79 3.40 - 10.80 10*3/mm3 11/02/2023 7:59 AM EDT [facility] RBC 2.99(L) 4.14 - 5.80 10*6/mm3 11/02/2023 7:59 AM EDT [facility] Hemoglobin 9.4(L) 13.0 - 17.7 g/dL 11/02/2023 7:59 AM EDT [facility] Hematocrit 31.3(L) 37.5 - 51.0 % 11/02/2023 7:59 AM EDT [facility] MCV 104.7(H) 79.0 - 97.0 fL 11/02/2023 7:59 AM EDT [facility] MCH 31.4 26.6 - 33.0 pg 11/02/2023 7:59 AM EDT [facility] MCHC 30.0(L) 31.5 - 35.7 g/dL 11/02/2023 7:59 AM EDT [facility] RDW 14.7 12.3 - 15.4 % 11/02/2023 7:59 AM EDT [facility] RDW-SD 57.1(H) 37.0 - 54.0 fl 11/02/2023 7:59 AM EDT [facility] MPV 9.7 6.0 - 12.0 fL 11/02/2023 7:59 AM EDT [facility] Platelets 227 140 - 450 10*3/mm3 11/02/2023 7:59 AM EDT [facility] Blood Venipuncture / Unknown 11/02/2023 7:51 AM EDT 11/02/2023 7:51 AM EDT Chiquita Porter APRN LAB BLOOD ORDERABLES Final Res ult [facility]
[address] [place] [address], * (ABNORMAL) Basic Metabolic Panel (11/02/2023 7:32 AM EDT) Glucose 120(H) 65 - 99 mg/dL 11/02/2023 8:34 AM EDT [facility] BUN 37(H) 6 - 20 mg/dL 11/02/2023 8:34 AM EDT [facility] Creatinine 8.12(H) 0.76 - 1.27 mg/dL 11/02/2023 8:34 AM EDT [facility] Sodium 133(L) 136 - 145 mmol/L 11/02/2023 8:34 AM EDT [facility] Potassium 5.7(H) 3.5 - 5.2 mmol/L 11/02/2023 8:34 AM EDT [facility] Chloride 97(L) 98 - 107 mmol/L 11/02/2023 8:34 AM EDT [facility] CO2 21.0(L) 22.0 - 29.0 mmol/L 11/02/2023 8:34 AM EDT [facility] Calcium 8.0(L) 8.6 - 10.5 mg/dL 11/02/2023 8:34 AM EDT [facility] BUN/Creatinine Ratio 4.6(L) 7.0 - 25.0 11/02/2023 8:34 AM EDT [facility] Anion Gap 15.0 5.0 - 15.0 mmol/L 11/02/2023 8:34 AM EDT [facility] eGFR 7.5(L) >60.0 mL/min/1.7 3 11/02/2023 8:34 AM EDT [facility] Comment:<15 Indicative of ki dney failure Blood Venipuncture / Unknown 11/02/2023 7:32 AM EDT 11/02/2023 7:51 AM EDT Narrative [facility] - 11/02/2023 8:34 AM EDT GFR Normal >60 Chronic Kidney Disease <60 Kidney Failure <15 Chiquita Porter APRN LAB BLOOD ORDERABLES Final Res ult [facility]
[address] [place] [address], * POC Glucose Once (11/02/2023 6:59 AM EDT) Glucose 118 70 - 130 mg/dL 11/02/2023 7:00 AM EDT [facility] Blood 11/02/2023 6:59 AM EDT 11/02/2023 7:00 AM EDT us Kevin Muller MD POINT OF CARE TEST ORDERABLES Final Result [facility]
[address] [place] [address], [place] [phone] * (ABNORMAL) POC Glucose Once (11/01/2023 8:18 PM EDT) Glucose 223(H) 70 - 130 mg/dL 11/01/2023 8:21 PM EDT [facility] Blood 11/01/2023 8:18 PM EDT 11/01/2023 8:21 PM EDT us Kevin Muller MD POINT OF CARE TEST ORDERABLES Final Result Performing Organization Address City/[facility]/ZIP Co de Phone Number [facility]
[address] [place] [address], [place] [phone] * (ABNORMAL) POC Glucose Once (11/01/2023 5:59 PM EDT) Glucose 209(H) 70 - 130 mg/dL 11/01/2023 6:01 PM EDT [facility] Blood 11/01/2023 5:59 PM EDT 11/01/2023 6:01 PM EDT us Kevin Muller MD POINT OF CARE TEST ORDERABLES Final Result Performing Organization Address [facility] Co de Phone Number [facility]
[address] [place] [address], [place] [phone] * IR NON-HUEY TEMP DIALYSIS ACC (11/01/2023 1:04 PM EDT) Anatomical Region Laterality Modality N/A X-Ray Angiograph y 11/01/2023 1:56 PM EDT Impressions 11/01/2023 1:57 PM EDT Impression: ? Successful ultrasound and fluoroscopic guided Right internal jugular vein route nontunneled temporary dialysis catheter placement as described above. Thank you for the opportunity to assist in the care of your patient. Electronically Signed: Victor Manuel Castro MD 11/01/2023 1:57 PM EDT Workstation ID: [id number] Narrative 11/01/2023 1:57 PM EDT IR NON-TUNNELED TEMP DIALYSIS ACCESS History: Need for temporary dialysis catheter placement. 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 Health Promoter: Victor Manuel Castro MD. Lead Sewage Plant Operator: None Modality: Sonography and fluoroscopy DOSE REDUCTION: The examination was performed according to departmental dose-optimization program which includes automated exposure control, adjustment of the mA and/or kV according to patient size. Fluoro time: 2.3. Radiation dose: 28 mGy air Kerma. ?? Sedation: No IV sedation was given. Anesthesia: Lidocaine 1% local infiltration. Estimated blood loss: ??< 5 cc. ? Technique: A thorough discussion of the risks, benefits, and alternatives of the procedure, and if applicable, moderate sedation, was carried out with the patient. They were encouraged to ask any questions. Any questions were answered. They verbalized understanding. A written informed consent was then signed. ?? A multi-component timeout was performed prior to starting the procedure using the departmental protocol. The procedure room personnel used personal protective equipment. The operators used sterile gloves and if indicated, sterile gowns. The surgical site was prepped with chlorhexidine gluconate ??and draped in the maximal applicable sterile fashion. A preliminary ultrasonogram was performed of the target site that revealed a patent and compressible Right internal jugular vein. Pertinent ultrasound images were stored in the PACS for documentation. A sterile prep and drape of the neck and upper chest was performed using maximal technique. Using aseptic precautions, real-time ultrasound guidance, the target vein was accessed after local anesthetic infiltration and dermatotomy with an access needle. A guidewire was advanced into the central venous system under fluoroscopic guidance. Over the wire following standard exchanges a nontunneled temporary dialysis catheter was placed. The catheter ports aspirated and flushed well and were terminally packed with heparin. The catheter was secured to skin with nonabsorbable suture. An aseptic dressing was applied. The patient was transferred to the recovery area and was discharged from the department in stable condition. Complications: None immediate. ? Device: 14 Taiwanese x15 cm Dual-lumen nontunneled dialysis catheter . Findings: Patent and compressible Right internal jugular vein. Final image shows the catheter to be in good position with the catheter tip at the cavoatrial junction and an excellent position for use. There is no complication. Procedure Note Victor Manuel Castro MD - 11/01/2023 IR NON-TUNNELED TEMP DIALYSIS ACCESS History: Need for temporary dialysis catheter placement. Left forearm AVfistula is infected. Health Promoter: Victor Manuel Castro MD. Lead Sewage Plant Operator: None Modality: Sonography and fluoroscopy DOSE REDUCTION: The examination was performed according to departmentaldose-optimization program which includes automated exposure control,adjustment of the mA and/or kV according to patient size. Fluoro time: 2.3. Radiation dose: 28 mGy air Kerma. Sedation: No IV sedation was given. Anesthesia: Lidocaine 1% local infiltration. Estimated blood loss: < 5 cc. Technique: A thorough discussion of the risks, benefits, and alternatives of theprocedure, and if applicable, moderate sedation, was carried out with thepatient. They were encouraged to ask any questions. Any questions wereanswered. They verbalized understanding. A written informed consent was then signed. A multi-component timeout was performed prior to starting the procedureusing the departmental protocol. The procedure room personnel used personal protective equipment. Theoperators used sterile gloves and if indicated, sterile gowns. Thesurgical site was prepped with chlorhexidine gluconate and draped in themaximal applicable sterile fashion. A preliminary ultrasonogram was performed of the target site that revealeda patent and compressible Right internal jugular vein. Pertinentultrasound images were stored in the PACS for documentation. A sterile prep and drape of the neck and upper chest was performed usingmaximal technique. Using aseptic precautions, real-time ultrasound guidance, the target veinwas accessed after local anesthetic infiltration and dermatotomy with anaccess needle. A guidewire was advanced into the central venous systemunder fluoroscopic guidance. Over the wire following standard exchanges a nontunneled temporary dialysiscatheter was placed. The catheter ports aspirated and flushed well andwere terminally packed with heparin. The catheter was secured to skin with nonabsorbable suture. An asepticdressing was applied. The patient was transferred to the recovery area and was discharged fromthe department in stable condition. Complications: None immediate. Device: 14 Taiwanese x15 cm Dual-lumen nontunneled dialysis catheter . Findings: Patent and compressible Right internal jugular vein. Final imageshows the catheter to be in good position with the catheter tip at thecavoatrial junction and an excellent position for use. There is nocomplication. IMPRESSION: Impression: Successful ultrasound and fluoroscopic guided Right internal jugular veinroute nontunneled temporary dialysis catheter placement as describedabove. Thank you for the opportunity to assist in the care of your patient. Electronically Signed: Victor Manuel Castro MD 11/01/2023 1:57 PM EDT Workstation ID: [id number] us Karishma Hodge MD IMG IR ORDERABLES Final R esult * (ABNORMAL) POC Glucose Once (11/01/2023 11:09 AM EDT) Glucose 150(H) 70 - 130 mg/dL 11/01/2023 11:11 AM EDT [facility] Blood 11/01/2023 11:0 9 AM EDT 11/01/2023 11:11 AM EDT us Kevin Muller MD POINT OF CARE TEST ORDERABLES Final Result Performing Organization Address City/[facility]/ZIP Co de Phone Number [facility]
[address] [place] [address], * POC Glucose Once (11/01/2023 7:21 AM EDT) Glucose 120 70 - 130 mg/dL 11/01/2023 7:25 AM EDT [facility] Blood 11/01/2023 7:21 AM EDT 11/01/2023 7:25 AM EDT us Kevin Muller MD POINT OF CARE TEST ORDERABLES Final Result Performing Organization Address City/[facility]/ZIP Co de Phone Number [facility]
[address] [place] [address], * (ABNORMAL) CBC (No Diff) (11/01/2023 5:04 AM EDT) WBC 7.66 3.40 - 10.80 10*3/mm3 11/01/2023 5:58 AM EDT [facility] RBC 3.13(L) 4.14 - 5.80 10*6/mm3 11/01/2023 5:58 AM EDT [facility] Hemoglobin 10.0(L) 13.0 - 17.7 g/dL 11/01/2023 5:58 AM EDT [facility] Hematocrit 32.5(L) 37.5 - 51.0 % 11/01/2023 5:58 AM EDT [facility] MCV 103.8(H) 79.0 - 97.0 fL 11/01/2023 5:58 AM EDT [facility] MCH 31.9 26.6 - 33.0 pg 11/01/2023 5:58 AM EDT [facility] MCHC 30.8(L) 31.5 - 35.7 g/dL 11/01/2023 5:58 AM EDT [facility] RDW 14.5 12.3 - 15.4 % 11/01/2023 5:58 AM EDT [facility] RDW-SD 56.0(H) 37.0 - 54.0 fl 11/01/2023 5:58 AM EDT [facility] MPV 9.8 6.0 - 12.0 fL 11/01/2023 5:58 AM EDT [facility] Platelets 230 140 - 450 10*3/mm3 11/01/2023 5:58 AM EDT [facility] Blood Venipuncture / Unknown 11/01/2023 5:04 AM EDT 11/01/2023 5:24 AM EDT us Kevin Muller MD LAB BLOOD ORDERABLES Final Res ult [facility]
[address] [place] [address], * (ABNORMAL) Comprehensive Metabolic Panel (11/01/2023 5:04 AM EDT) Glucose 121(H) 65 - 99 mg/dL 11/01/2023 6:01 AM EDT [facility] BUN 52(H) 6 - 20 mg/dL 11/01/2023 6:01 AM EDT [facility] Creatinine 10.08(H) 0.76 - 1.27 mg/dL 11/01/2023 6:01 AM EDT [facility] Sodium 132(L) 136 - 145 mmol/L 11/01/2023 6:01 AM [facility] Potassium 5.3(H) 3.5 - 5.2 mmol/L 11/01/2023 6:01 AM [facility] Comment:Slight hemolysis det ected by analyzer. Result may be falsely elevated. Chloride 94(L) 98 - 107 mmol/L 11/01/2023 6:01 AM [facility] CO2 17.0(L) 22.0 - 29.0 mmol/L 11/01/2023 6:01 AM [facility] Calcium 7.7(L) 8.6 - 10.5 mg/dL 11/01/2023 6:01 AM [facility] Total Protein 6.5 6.0 - 8.5 g/dL 11/01/2023 6:01 AM [facility] Albumin 3.8 3.5 - 5.2 g/dL 11/01/2023 6:01 AM [facility] ALT (SGPT) 11 1 - 41 U/L 11/01/2023 6:01 AM [facility] AST (SGOT) 13 1 - 40 U/L 11/01/2023 6:01 AM [facility] Alkaline Phosphatase 105 39 - 117 U/L 11/01/2023 6:01 AM [facility] Total Bilirubin 0.2 0.0 - 1.2 mg/dL 11/01/2023 6:01 AM [facility] Globulin 2.7 gm/dL 11/01/2023 6:01 AM [facility] Comment:Calculated Result A/G Ratio 1.4 g/dL 11/01/2023 6:01 AM [facility] BUN/Creatinine Ratio 5.2(L) 7.0 - 25.0 11/01/2023 6:01 AM [facility] Anion Gap 21.0(H) 5.0 - 15.0 mmol/L 11/01/2023 6:01 AM [facility] eGFR 5.8(L) >60.0 mL/min/1. 73 11/01/2023 6:01 AM EDT [facility] Comment:<15 Indicative of ki dney failure Blood Venipuncture / Unknown 11/01/2023 5:04 AM EDT 11/01/2023 5:24 AM EDT Narrative [facility] - 11/01/2023 6:01 AM EDT GFR Normal >60 Chronic Kidney Disease <60 Kidney Failure <15 us Kevin Muller MD LAB BLOOD ORDERABLES Final Res ult Performing Organization Address City/[facility]/ZIP Co de Phone Number [facility]
[address] [place] [address], * (ABNORMAL) POC Glucose Once (10/31/2023 8:13 PM EDT) Glucose 155(H) 70 - 130 mg/dL 10/31/2023 8:17 PM EDT [facility] Blood 10/31/2023 8:13 PM EDT 10/31/2023 8:17 PM EDT us Kevin Muller MD POINT OF CARE TEST ORDERABLES Final Result Performing Organization Address [facility] Co de Phone Number [facility]
[address] [place] [address], [place] [phone] * (ABNORMAL) POC Glucose Once (10/31/2023 4:07 PM EDT) Glucose 270(H) 70 - 130 mg/dL 10/31/2023 4:08 PM EDT [facility] Blood 10/31/2023 4:07 PM EDT 10/31/2023 4:08 PM EDT us Kevin Muller MD POINT OF CARE TEST ORDERABLES Final Result [facility]
[address] [place] [address], * POC Glucose Once (10/31/2023 11:41 AM EDT) Glucose 129 70 - 130 mg/dL 10/31/2023 11:43 AM EDT [facility] Blood 10/31/2023 11:4 1 AM EDT 10/31/2023 11:43 AM EDT us Kevin Muller MD POINT OF CARE TEST ORDERABLES Final Result Performing Organization Address City/[facility]/ZIP Co de Phone Number [facility]
[address] [place] [address], * (ABNORMAL) POC Glucose Once (10/31/2023 8:03 AM EDT) Glucose 145(H) 70 - 130 mg/dL 10/31/2023 8:04 AM EDT [facility] Blood 10/31/2023 8:03 AM EDT 10/31/2023 8:04 AM EDT us Kevin Muller MD POINT OF CARE TEST ORDERABLES Final Result Performing Organization Address City/[facility]/ZIP Co de Phone Number [facility]
[address] [place] [address], * (ABNORMAL) CBC Auto Differential (10/31/2023 5:04 AM EDT) WBC 4.16 3.40 - 10.80 10*3/mm3 10/31/2023 6:18 AM EDT [facility] RBC 3.39(L) 4.14 - 5.80 10*6/mm3 10/31/2023 6:18 AM EDT [facility] Hemoglobin 10.5(L) 13.0 - 17.7 g/dL 10/31/2023 6:18 AM EDT [facility] Hematocrit 34.5(L) 37.5 - 51.0 % 10/31/2023 6:18 AM EDT [facility] MCV 101.8(H) 79.0 - 97.0 fL 10/31/2023 6:18 AM EDT [facility] MCH 31.0 26.6 - 33.0 pg 10/31/2023 6:18 AM EDT [facility] MCHC 30.4(L) 31.5 - 35.7 g/dL 10/31/2023 6:18 AM EDT [facility] RDW 14.5 12.3 - 15.4 % 10/31/2023 6:18 AM EDT [facility] RDW-SD 54.4(H) 37.0 - 54.0 fl 10/31/2023 6:18 AM EDT [facility] MPV 9.5 6.0 - 12.0 fL 10/31/2023 6:18 AM EDT [facility] Platelets 203 140 - 450 10*3/mm3 10/31/2023 6:18 AM EDT [facility] Neutrophil % 45.7 42.7 - 76.0 % 10/31/2023 6:18 AM EDT [facility] Lymphocyte % 26.0 19.6 - 45.3 % 10/31/2023 6:18 AM EDT [facility] Monocyte % 18.3(H) 5.0 - 12.0 % 10/31/2023 6:18 AM EDT [facility] Eosinophil % 5.5 0.3 - 6.2 % 10/31/2023 6:18 AM EDT [facility] Basophil % 0.7 0.0 - 1.5 % 10/31/2023 6:18 AM EDT [facility] Immature Grans % 3.8(H) 0.0 - 0.5 % 10/31/2023 6:18 AM EDT [facility] Neutrophils, Absolute 1.90 1.70 - 7.00 10*3/mm3 10/31/2023 6:18 AM EDT [facility] Lymphocytes, Absolute 1.08 0.70 - 3.10 10*3/mm3 10/31/2023 6:18 AM EDT [facility] Monocytes, Absolute 0.76 0.10 - 0.90 10*3/mm3 10/31/2023 6:18 AM EDT [facility] Eosinophils, Absolute 0.23 0.00 - 0.40 10*3/mm3 10/31/2023 6:18 AM EDT [facility] Basophils, Absolute 0.03 0.00 - 0.20 10*3/mm3 10/31/2023 6:18 AM EDT [facility] Immature Grans, Absolute 0.16(H) 0.00 - 0.05 10*3/mm3 10/31/2023 6:18 AM EDT [facility] nRBC 0.0 0.0 - 0.2 /100 WBC 10/31/2023 6:18 AM EDT [facility] Blood Venipuncture / Unknown 10/31/2023 5:04 AM EDT 10/31/2023 5:18 AM EDT us Michelle Shore DO LAB BLOOD ORDERABLES Final R esult [facility]
[address] [place] [address], * (ABNORMAL) Basic Metabolic Panel (10/31/2023 5:04 AM EDT) Glucose 140(H) 65 - 99 mg/dL 10/31/2023 6:05 AM EDT [facility] BUN 39(H) 6 - 20 mg/dL 10/31/2023 6:05 AM EDT [facility] Creatinine 7.99(H) 0.76 - 1.27 mg/dL 10/31/2023 6:05 AM EDT [facility] Sodium 131(L) 136 - 145 mmol/L 10/31/2023 6:05 AM EDT [facility] Potassium 4.5 3.5 - 5.2 mmol/L 10/31/2023 6:05 AM EDT [facility] Comment:Slight hemolysis det ected by analyzer. Result may be falsely elevated. Chloride 94(L) 98 - 107 mmol/L 10/31/2023 6:05 AM EDT [facility] CO2 20.0(L) 22.0 - 29.0 mmol/L 10/31/2023 6:05 AM EDT [facility] Calcium 8.7 8.6 - 10.5 mg/dL 10/31/2023 6:05 AM EDT [facility] BUN/Creatinine Ratio 4.9(L) 7.0 - 25.0 10/31/2023 6:05 AM EDT [facility] Anion Gap 17.0(H) 5.0 - 15.0 mmol/L 10/31/2023 6:05 AM EDT [facility] eGFR 7.6(L) >60.0 mL/min/1.7 3 10/31/2023 6:05 AM EDT [facility] Comment:<15 Indicative of ki dney failure Blood Venipuncture / Unknown 10/31/2023 5:04 AM EDT 10/31/2023 5:18 AM EDT Narrative [facility] - 10/31/2023 6:05 AM EDT GFR Normal >60 Chronic Kidney Disease <60 Kidney Failure <15 Michelle Shore DO LAB BLOOD ORDERABLES Final R esult [facility]
[address] [place] [address], * (ABNORMAL) POC Glucose Once (10/30/2023 8:26 PM EDT) Glucose 192(H) 70 - 130 mg/dL 10/30/2023 8:29 PM EDT [facility] Blood 10/30/2023 8:26 PM EDT 10/30/2023 8:29 PM EDT Michelle Shore DO POINT OF CARE TEST ORDERABLE S Final Result Performing Organization Address [facility] Co de Phone Number [facility]
[address] [place] [address], [place] [phone] * (ABNORMAL) POC Glucose Once (10/30/2023 5:18 PM EDT) Glucose 144(H) 70 - 130 mg/dL 10/30/2023 6:47 PM EDT [facility] Blood 10/30/2023 5:18 PM EDT 10/30/2023 6:47 PM EDT Michelle Shore DO POINT OF CARE TEST ORDERABLE S Final Result Performing Organization Address [facility] Co de Phone Number [facility]
[address] [place] [address], [place] [phone] * Catheter Culture - Cath Tip, Chest, Right (10/30/2023 4:07 PM EDT) CATHETER CULTURE No growth at 2 days GREGORY 11/01/2023 7:12 AM EDT [facility] Cath Tip Right thorax structure / Unknown Collection / Unknown 10/30/2023 4:07 PM EDT 10/30/2023 4:25 PM EDT Michelle Shore DO MICROBIOLOGY - GENERAL ORDER ASHISH Final Result Performing Organization Address [facility] Co de Phone Number [facility]
[address] [place] [address], [place] [phone] * IR Removal Tunnel CV Cath Without Port (10/30/2023 4:06 PM EDT) Anatomical Region Laterality Modality Chest, Lower Extremities N/A X-Ray A ngiography 10/30/2023 4:35 PM EDT Impressions 10/31/2023 12:44 PM EDT Impression: ? Successful removal of a right IJ route tunneled dialysis catheter as described above. Thank you for the opportunity to assist in the care of your patient. I, Aubrey Velasco MD, have personally reviewed the image(s) and the prepared and signed interpretation by Brandy Feliz NP. ??Based on my review, I agree with the findings. Report dictated by: Brandy Feliz APRN I have personally reviewed this case and agree with the findings above: Electronically Signed: Aubrey Velasco MD 10/31/2023 12:44 PM EDT Workstation ID: [id number] Narrative 10/31/2023 12:44 PM EDT IR REMOVAL TUNNEL CV CATH WO PORT ? History: bacteremia, immunocompromised ? Health Promoter: Victor Manuel Castro MD. Modality: Not applicable. No sedation. Anesthesia: Lidocaine 1% Estimated blood loss: ??< 5 cc. ? Technique: A universal timeout was performed prior to starting the procedure. ?? The baling press operator used personal protective equipment and sterile gloves. The ipsilateral lower neck and chest were prepped with chlorhexidine gluconate and draped in the maximal sterile fashion. Local anesthesia was infiltrated along the tunnel and exit site. Using sharp and blunt dissection the catheter cuff was freed and the catheter removed in its entirety. An aseptic dressing was applied. The patient was in stable condition. Complications: None immediate. ? Procedure Note Aubrey Velasco MD - 10/31/2023 IR REMOVAL TUNNEL CV CATH WO PORT History: bacteremia, immunocompromised Health Promoter: Victor Manuel Castro MD. Modality: Not applicable. No sedation. Anesthesia: Lidocaine 1% Estimated blood loss: < 5 cc. Technique: A universal timeout was performed prior to starting the procedure. The baling press operator used personal protective equipment and sterile gloves. The ipsilateral lower neck and chest were prepped with chlorhexidinegluconate and draped in the maximal sterile fashion. Local anesthesia was infiltrated along the tunnel and exit site. Usingsharp and blunt dissection the catheter cuff was freed and the catheterremoved in its entirety. An aseptic dressing was applied. The patient was in stable condition. Complications: None immediate. IMPRESSION: Impression: Successful removal of a right IJ route tunneled dialysis catheter asdescribed above. Thank you for the opportunity to assist in the care of your patient. I, Aubrey Velasco MD, have personally reviewed the image(s) and theprepared and signed interpretation by Brandy Feliz NP. Based on carly, I agree with the findings. Report dictated by: Brandy Feliz APRN I have personally reviewed this case and agree with the findings above: Electronically Signed: Aubrey Velasco MD 10/31/2023 12:44 PM EDT Workstation ID: [id number] Michelle Shore DO IMG IR ORDERABLES Final Resu lt * (ABNORMAL) POC Glucose Once (10/30/2023 12:04 PM EDT) Pathologist [facility] Glucose 152(H) 70 - 130 mg/dL 10/30/2023 12:05 PM EDT [facility] Blood 10/30/2023 12:0 4 PM EDT 10/30/2023 12:05 PM EDT Michelle Shore DO POINT OF CARE TEST ORDERABLE S Final Result [facility]
[address] [place] [address], * (ABNORMAL) CBC Auto Differential (10/30/2023 4:18 AM EDT) Pathologist [facility] WBC 5.35 3.40 - 10.80 10*3/mm3 10/30/2023 6:29 AM EDT [facility] RBC 2.99(L) 4.14 - 5.80 10*6/mm3 10/30/2023 6:29 AM EDT [facility] Hemoglobin 9.6(L) 13.0 - 17.7 g/dL 10/30/2023 6:29 AM EDT [facility] Hematocrit 32.4(L) 37.5 - 51.0 % 10/30/2023 6:29 AM EDT [facility] MCV 108.4(H) 79.0 - 97.0 fL 10/30/2023 6:29 AM EDT [facility] MCH 32.1 26.6 - 33.0 pg 10/30/2023 6:29 [facility] MCHC 29.6(L) 31.5 - 35.7 g/dL 10/30/2023 6:29 AM [facility] RDW 14.6 12.3 - 15.4 % 10/30/2023 6:29 AM [facility] RDW-SD 58.2(H) 37.0 - 54.0 fl 10/30/2023 6:29 AM [facility] MPV 9.8 6.0 - 12.0 fL 10/30/2023 6:29 AM [facility] Platelets 198 140 - 450 10*3/mm3 10/30/2023 6:29 AM EDT [facility] Neutrophil % 57.6 42.7 - 76.0 % 10/30/2023 6:29 AM [facility] Lymphocyte % 18.5(L) 19.6 - 45.3 % 10/30/2023 6:29 AM EDT [facility] Monocyte % 16.8(H) 5.0 - 12.0 % 10/30/2023 6:29 AM [facility] Eosinophil % 2.8 0.3 - 6.2 % 10/30/2023 6:29 AM EDT [facility] Basophil % 0.6 0.0 - 1.5 % 10/30/2023 6:29 AM EDT [facility] Immature Grans % 3.7(H) 0.0 - 0.5 % 10/30/2023 6:29 AM EDT [facility] Neutrophils, Absolute 3.08 1.70 - 7.00 10*3/mm3 10/30/2023 6:29 AM EDT [facility] Lymphocytes, Absolute 0.99 0.70 - 3.10 10*3/mm3 10/30/2023 6:29 AM EDT [facility] Monocytes, Absolute 0.90 0.10 - 0.90 10*3/mm3 10/30/2023 6:29 AM EDT [facility] Eosinophils, Absolute 0.15 0.00 - 0.40 10*3/mm3 10/30/2023 6:29 AM EDT [facility] Basophils, Absolute 0.03 0.00 - 0.20 10*3/mm3 10/30/2023 6:29 AM EDT [facility] Immature Grans, Absolute 0.20(H) 0.00 - 0.05 10*3/mm3 10/30/2023 6:29 AM EDT [facility] nRBC 0.0 0.0 - 0.2 /100 WBC 10/30/2023 6:29 AM EDT [facility] Blood Venipuncture / Unknown 10/30/2023 4:18 AM EDT 10/30/2023 5:56 AM EDT us Michelle Shore DO LAB BLOOD ORDERABLES Final R esult [facility]
[address] [place] [address], * (ABNORMAL) Basic Metabolic Panel (10/30/2023 4:18 AM EDT) [facility] Glucose 99 65 - 99 mg/dL 10/30/2023 6:54 AM EDT [facility] BUN 55(H) 6 - 20 mg/dL 10/30/2023 6:54 AM EDT [facility] Creatinine 10.39(H) 0.76 - 1.27 mg/dL 10/30/2023 6:54 AM EDT [facility] Sodium 132(L) 136 - 145 mmol/L 10/30/2023 6:54 AM EDT [facility] Potassium 5.7(H) 3.5 - 5.2 mmol/L 10/30/2023 6:54 AM EDT [facility] Comment:Slight hemolysis det ected by analyzer. Result may be falsely elevated. Chloride 92(L) 98 - 107 mmol/L 10/30/2023 6:54 AM EDT [facility] CO2 19.0(L) 22.0 - 29.0 mmol/L 10/30/2023 6:54 AM EDT [facility] Calcium 8.1(L) 8.6 - 10.5 mg/dL 10/30/2023 6:54 AM EDT [facility] BUN/Creatinine Ratio 5.3(L) 7.0 - 25.0 10/30/2023 6:54 AM EDT [facility] Anion Gap 21.0(H) 5.0 - 15.0 mmol/L 10/30/2023 6:54 AM EDT [facility] eGFR 5.6(L) >60.0 mL/min/1.7 3 10/30/2023 6:54 AM EDT [facility] Comment:<15 Indicative of ki dney failure Blood Venipuncture / Unknown 10/30/2023 4:18 AM EDT 10/30/2023 5:56 AM EDT Narrative [facility] - 10/30/2023 6:54 AM EDT GFR Normal >60 Chronic Kidney Disease <60 Kidney Failure <15 us Michelle Shore DO LAB BLOOD ORDERABLES Final R esult [facility]
[address] [place] [address], * Vancomycin, Random (10/30/2023 4:18 AM EDT) Vancomycin Random 22.60 5.00 - 40.00 mcg/mL 10/30/2023 6:49 AM EDT [facility] Blood Venipuncture / Unknown 10/30/2023 4:18 AM EDT 10/30/2023 5:56 AM EDT Narrative [facility] - 10/30/2023 6:49 AM EDT Therapeutic Ranges for Vancomycin Vancomycin Random ?? 5.0-40.0 mcg/mL Vancomycin Trough ?? 5.0-20.0 mcg/mL Vancomycin Peak ? 20.0-40.0 mcg/mL Dontae Gruber MD LAB BLOOD ORDERABLES Fi nal Result Performing Organization Address City/[facility]/ZIP Co de Phone Number [facility]
[address] [place] [address], * (ABNORMAL) POC Glucose Once (10/29/2023 8:07 PM EDT) Glucose 143(H) 70 - 130 mg/dL 10/29/2023 8:08 PM EDT [facility] Blood 10/29/2023 8:07 PM EDT 10/29/2023 8:08 PM EDT Michelle Shore DO POINT OF CARE TEST ORDERABLE S Final Result [facility]
[address] [place] [address], * (ABNORMAL) POC Glucose Once (10/29/2023 4:23 PM EDT) Glucose 205(H) 70 - 130 mg/dL 10/29/2023 4:24 PM EDT [facility] Blood 10/29/2023 4:23 PM EDT 10/29/2023 4:24 PM EDT Michelle Shore DO POINT OF CARE TEST ORDERABLE S Final Result Performing Organization Address City/[facility]/ZIP Co de Phone Number [facility]
[address] [place] [address], [place] [phone] * (ABNORMAL) POC Glucose Once (10/29/2023 11:38 AM EDT) Glucose 181(H) 70 - 130 mg/dL 10/29/2023 11:41 AM EDT [facility] Blood 10/29/2023 11:3 8 AM EDT 10/29/2023 11:41 AM EDT Michelle Shore DO POINT OF CARE TEST ORDERABLE S Final Result Performing Organization Address [facility] Co de Phone Number [facility]
[address] [place] [address], [place] [phone] * (ABNORMAL) POC Glucose Once (10/29/2023 7:28 AM EDT) Glucose 180(H) 70 - 130 mg/dL 10/29/2023 7:29 AM EDT [facility] Blood 10/29/2023 7:28 AM EDT 10/29/2023 7:29 AM EDT Michelle Shore DO POINT OF CARE TEST ORDERABLE S Final Result Performing Organization Address City/[facility] Co de Phone Number [facility]
[address] [place] [address], [place] [phone] * (ABNORMAL) CBC Auto Differential (10/29/2023 5:03 AM EDT) WBC 7.31 3.40 - 10.80 10*3/mm3 10/29/2023 5:54 AM EDT [facility] RBC 3.45(L) 4.14 - 5.80 10*6/mm3 10/29/2023 5:54 AM EDT [facility] Hemoglobin 11.2(L) 13.0 - 17.7 g/dL 10/29/2023 5:54 AM EDT [facility] Hematocrit 35.4(L) 37.5 - 51.0 % 10/29/2023 5:54 AM EDT [facility] MCV 102.6(H) 79.0 - 97.0 fL 10/29/2023 5:54 AM EDT [facility] MCH 32.5 26.6 - 33.0 pg 10/29/2023 5:54 AM EDT [facility] MCHC 31.6 31.5 - 35.7 g/dL 10/29/2023 5:54 AM EDT [facility] RDW 14.0 12.3 - 15.4 % 10/29/2023 5:54 AM EDT [facility] RDW-SD 52.2 37.0 - 54.0 fl 10/29/2023 5:54 AM EDT [facility] MPV 9.6 6.0 - 12.0 fL 10/29/2023 5:54 AM EDT [facility] Platelets 220 140 - 450 10*3/mm3 10/29/2023 5:54 AM EDT [facility] Neutrophil % 74.4 42.7 - 76.0 % 10/29/2023 5:54 AM EDT [facility] Lymphocyte % 7.9(L) 19.6 - 45.3 % 10/29/2023 5:54 AM EDT [facility] Monocyte % 11.2 5.0 - 12.0 % 10/29/2023 5:54 AM EDT [facility] Eosinophil % 4.0 0.3 - 6.2 % 10/29/2023 5:54 AM EDT [facility] Basophil % 0.4 0.0 - 1.5 % 10/29/2023 5:54 AM EDT [facility] Immature Grans % 2.1(H) 0.0 - 0.5 % 10/29/2023 5:54 AM EDT [facility] Neutrophils, Absolute 5.44 1.70 - 7.00 10*3/mm3 10/29/2023 5:54 AM EDT [facility] Lymphocytes, Absolute 0.58(L) 0.70 - 3.10 10*3/mm3 10/29/2023 5:54 AM EDT [facility] Monocytes, Absolute 0.82 0.10 - 0.90 10*3/mm3 10/29/2023 5:54 AM EDT [facility] Eosinophils, Absolute 0.29 0.00 - 0.40 10*3/mm3 10/29/2023 5:54 AM EDT [facility] Basophils, Absolute 0.03 0.00 - 0.20 10*3/mm3 10/29/2023 5:54 AM EDT [facility] Immature Grans, Absolute 0.15(H) 0.00 - 0.05 10*3/mm3 10/29/2023 5:54 AM EDT [facility] nRBC 0.0 0.0 - 0.2 /100 WBC 10/29/2023 5:54 AM EDT [facility] Blood Venipuncture / Unknown 10/29/2023 5:03 AM EDT 10/29/2023 5:46 AM EDT us Michelle Shore DO LAB BLOOD ORDERABLES Final R esult [facility]
[address] [place] [address], * (ABNORMAL) Basic Metabolic Panel (10/29/2023 5:03 AM EDT) Glucose 164(H) 65 - 99 mg/dL 10/29/2023 6:44 AM EDT [facility] BUN 35(H) 6 - 20 mg/dL 10/29/2023 6:44 AM EDT [facility] Creatinine 7.90(H) 0.76 - 1.27 mg/dL 10/29/2023 6:44 AM EDT [facility] Sodium 132(L) 136 - 145 mmol/L 10/29/2023 6:44 AM EDT [facility] Potassium 4.6 3.5 - 5.2 mmol/L 10/29/2023 6:44 AM EDT [facility] Chloride 91(L) 98 - 107 mmol/L 10/29/2023 6:44 AM EDT [facility] CO2 19.0(L) 22.0 - 29.0 mmol/L 10/29/2023 6:44 AM EDT [facility] Calcium 8.8 8.6 - 10.5 mg/dL 10/29/2023 6:44 AM EDT [facility] BUN/Creatinine Ratio 4.4(L) 7.0 - 25.0 10/29/2023 6:44 AM EDT [facility] Anion Gap 22.0(H) 5.0 - 15.0 mmol/L 10/29/2023 6:44 AM EDT [facility] eGFR 7.7(L) >60.0 mL/min/1.7 3 10/29/2023 6:44 AM EDT [facility] Comment:<15 Indicative of ki dney failure Blood Venipuncture / Unknown 10/29/2023 5:03 AM EDT 10/29/2023 5:48 AM EDT Narrative [facility] - 10/29/2023 6:44 AM EDT GFR Normal >60 Chronic Kidney Disease <60 Kidney Failure <15 us Michelle Shore DO LAB BLOOD ORDERABLES Final R esult [facility]
[address] [place] [address], * (ABNORMAL) POC Glucose Once (10/28/2023 8:04 PM EDT) Glucose 242(H) 70 - 130 mg/dL 10/28/2023 8:06 PM EDT [facility] Blood 10/28/2023 8:04 PM EDT 10/28/2023 8:06 PM EDT Michelle Shore DO POINT OF CARE TEST ORDERABLE S Final Result [facility]
[address] [place] [address], [place] [phone] * (ABNORMAL) POC Glucose Once (10/28/2023 5:42 PM EDT) Glucose 173(H) 70 - 130 mg/dL 10/28/2023 5:43 PM EDT [facility] Blood 10/28/2023 5:42 PM EDT 10/28/2023 5:43 PM EDT Michelle Shore DO POINT OF CARE TEST ORDERABLE S Final Result Performing Organization Address [facility] Co de Phone Number [facility]
[address] [place] [address], [place] [phone] * Blood Culture - Blood, Arm, Right (10/28/2023 1:42 PM EDT) Blood Culture No growth at 5 days 11/02/2023 3:00 PM EDT [facility] Blood Structure of right upper limb / Unknown Venipuncture / Unknown 10/28/2023 1:42 PM EDT 10/28/2023 2:54 PM EDT us Giancarlo TOTH MICROBIOLOGY - GENERAL ORDERABLE S Final Result Performing Organization Address City/[facility]/ZIP Co de Phone Number [facility]
[address] [place] [address], [place] [phone] * Blood Culture - Blood, Hand, Right (10/28/2023 1:42 PM EDT) Blood Culture No growth at 5 days 11/02/2023 3:00 PM EDT [facility] Blood Structure of right hand / Unknown Venipuncture / Unknown 10/28/2023 1:42 PM EDT 10/28/2023 2:54 PM EDT Giancarlo TOTH MICROBIOLOGY - GENERAL ORDERABLE S Final Result [facility]
[address] [place] [address], * (ABNORMAL) POC Glucose Once (10/28/2023 1:10 PM EDT) Glucose 205(H) 70 - 130 mg/dL 10/28/2023 1:14 PM EDT [facility] Blood 10/28/2023 1:10 PM EDT 10/28/2023 1:14 PM EDT Michelle Shore DO POINT OF CARE TEST ORDERABLE S Final Result Performing Organization Address City/[facility]/ZIP Co de Phone Number [facility]
[address] [place] [address], * POC Glucose Once (10/28/2023 7:54 AM EDT) Glucose 125 70 - 130 mg/dL 10/28/2023 7:56 AM EDT [facility] Blood 10/28/2023 7:54 AM EDT 10/28/2023 7:55 AM EDT Michelle Shore DO POINT OF CARE TEST ORDERABLE S Final Result [facility]
[address] [place] [address], * (ABNORMAL) CBC Auto Differential (10/28/2023 4:39 AM EDT) [facility] WBC 5.50 3.40 - 10.80 10*3/mm3 10/28/2023 5:00 AM EDT [facility] RBC 3.43(L) 4.14 - 5.80 10*6/mm3 10/28/2023 5:00 AM EDT [facility] Hemoglobin 10.8(L) 13.0 - 17.7 g/dL 10/28/2023 5:00 AM EDT [facility] Hematocrit 34.9(L) 37.5 - 51.0 % 10/28/2023 5:00 AM EDT [facility] MCV 101.7(H) 79.0 - 97.0 fL 10/28/2023 5:00 AM EDT [facility] MCH 31.5 26.6 - 33.0 pg 10/28/2023 5:00 AM EDT [facility] MCHC 30.9(L) 31.5 - 35.7 g/dL 10/28/2023 5:00 AM EDT [facility] RDW 14.1 12.3 - 15.4 % 10/28/2023 5:00 AM EDT [facility] RDW-SD 52.2 37.0 - 54.0 fl 10/28/2023 5:00 AM EDT [facility] MPV 9.5 6.0 - 12.0 fL 10/28/2023 5:00 AM EDT [facility] Platelets 217 140 - 450 10*3/mm3 10/28/2023 5:00 AM EDT [facility] Neutrophil % 57.1 42.7 - 76.0 % 10/28/2023 5:00 AM EDT [facility] Lymphocyte % 22.0 19.6 - 45.3 % 10/28/2023 5:00 AM EDT [facility] Monocyte % 11.5 5.0 - 12.0 % 10/28/2023 5:00 AM EDT [facility] Eosinophil % 6.0 0.3 - 6.2 % 10/28/2023 5:00 AM EDT [facility] Basophil % 0.5 0.0 - 1.5 % 10/28/2023 5:00 AM EDT [facility] Immature Grans % 2.9(H) 0.0 - 0.5 % 10/28/2023 5:00 AM EDT [facility] Neutrophils, Absolute 3.14 1.70 - 7.00 10*3/mm3 10/28/2023 5:00 AM EDT [facility] Lymphocytes, Absolute 1.21 0.70 - 3.10 10*3/mm3 10/28/2023 5:00 AM EDT [facility] Monocytes, Absolute 0.63 0.10 - 0.90 10*3/mm3 10/28/2023 5:00 AM EDT [facility] Eosinophils, Absolute 0.33 0.00 - 0.40 10*3/mm3 10/28/2023 5:00 AM EDT [facility] Basophils, Absolute 0.03 0.00 - 0.20 10*3/mm3 10/28/2023 5:00 AM EDT [facility] Immature Grans, Absolute 0.16(H) 0.00 - 0.05 10*3/mm3 10/28/2023 5:00 AM EDT [facility] nRBC 0.0 0.0 - 0.2 /100 WBC 10/28/2023 5:00 AM EDT [facility] Blood Venipuncture / Unknown 10/28/2023 4:39 AM EDT 10/28/2023 4:54 AM EDT us Dontae Gruber MD LAB BLOOD ORDERABLES Fi nal Result [facility]
[address] [place] [address], * (ABNORMAL) Basic Metabolic Panel (10/28/2023 4:39 AM EDT) [facility] Glucose 139(H) 65 - 99 mg/dL 10/28/2023 5:17 AM EDT [facility] BUN 23(H) 6 - 20 mg/dL 10/28/2023 5:17 AM EDT [facility] Creatinine 5.33(H) 0.76 - 1.27 mg/dL 10/28/2023 5:17 AM EDT [facility] Sodium 133(L) 136 - 145 mmol/L 10/28/2023 5:17 AM EDT [facility] Potassium 4.3 3.5 - 5.2 mmol/L 10/28/2023 5:17 AM EDT [facility] Chloride 94(L) 98 - 107 mmol/L 10/28/2023 5:17 AM EDT [facility] CO2 23.0 22.0 - 29.0 mmol/L 10/28/2023 5:17 AM EDT [facility] Calcium 9.2 8.6 - 10.5 mg/dL 10/28/2023 5:17 AM EDT [facility] BUN/Creatinine Ratio 4.3(L) 7.0 - 25.0 10/28/2023 5:17 AM EDT [facility] Anion Gap 16.0(H) 5.0 - 15.0 mmol/L 10/28/2023 5:17 AM EDT [facility] eGFR 12.4(L) >60.0 mL/min/1.7 3 10/28/2023 5:17 AM T [facility] Comment:<15 Indicative of ki dney failure Blood Venipuncture / Unknown 10/28/2023 4:39 AM EDT 10/28/2023 4:54 AM EDT Narrative [facility] - 10/28/2023 5:17 AM EDT GFR Normal >60 Chronic Kidney Disease <60 Kidney Failure <15 us Dontae Gruber MD LAB BLOOD ORDERABLES Fi nal Result Performing Organization Address City/[facility]/ZIP Co de Phone Number [facility]
[address] [place] [address], [place] [phone] * (ABNORMAL) POC Glucose Once (10/27/2023 8:06 PM EDT) Glucose 166(H) 70 - 130 mg/dL 10/27/2023 8:07 PM EDT [facility] Blood 10/27/2023 8:06 PM EDT 10/27/2023 8:07 PM EDT Michelle Shore DO POINT OF CARE TEST ORDERABLE S Final Result Performing Organization Address [facility] Co de Phone Number [facility]
[address] [place] [address], [place] [phone] * CT Abdomen Pelvis Without Contrast (10/27/2023 6:01 PM EDT) Anatomical Region Laterality Modality Abdomen, Pelvis N/A Computed Tomogra phy 10/27/2023 9:02 PM EDT Impressions 10/27/2023 9:08 PM EDT Impression: 1. No acute abnormality in the abdomen or pelvis. 2. Normal appendix. 3. Wall thickening of bladder may relate to underdistention, correlate with urinalysis to exclude cystitis. 4. Midline ventral hernia containing nonobstructed small bowel loops. 5. Additional chronic findings above. Electronically Signed: Massimo Burns MD 10/27/2023 9:08 PM EDT Workstation ID: [id number] Narrative 10/27/2023 9:[address] ABDOMEN PELVIS WO CONTRAST Date of Exam: 10/27/2023 5:56 PM EDT Indication: RLQ abdominal pain (Age >= 14y) hx of liver transplant. Comparison: CT abdomen pelvis 04/28/2020 Technique: Axial CT images were obtained of the abdomen and pelvis without the administration of contrast. Reconstructed coronal and sagittal images were also obtained. Automated exposure control and iterative construction methods were used. Findings: Lung bases without consolidation. No pericardial or pleural effusion. Coronary calcifications present. Small hiatal hernia. Lack of contrast limits assessment of abdominal organs and vasculature. Liver transplant. The liver and spleen are normal in size and contour. Normal adrenal glands. Gallbladder absent. Increased without findings of pancreatitis. Kidneys are atrophic. Negative for hydronephrosis or hydroureter. Wall thickening of bladder which may relate to underdistention. Prostate mildly enlarged. Negative for pneumoperitoneum. No bowel obstruction. Normal appendix. There are several ventral abdominal hernias for example small fat-containing upper abdominal ventral hernia (2/44). Large midline ventral hernia which contains nonobstructed small bowel loop above the umbilicus. Abdominal aorta without aneurysm. No fluid collection in the abdomen or pelvis. Advanced disc disease at L4-5 with endplate sclerosis. Laminectomy defect at L4. Chronic L4 pars defects. Sacralized L5 vertebral body. Negative for acute fracture. Procedure Note MouserMassimo MD - 10/27/2023 CT ABDOMEN PELVIS WO CONTRAST Date of Exam: 10/27/2023 5:56 PM EDT Indication: RLQ abdominal pain (Age >= 14y) hx of liver transplant. Comparison: CT abdomen pelvis 04/28/2020 Technique: Axial CT images were obtained of the abdomen and pelvis withoutthe administration of contrast. Reconstructed coronal and sagittal imageswere also obtained. Automated exposure control and iterative constructionmethods were used. Findings: Lung bases without consolidation. No pericardial or pleural effusion.Coronary calcifications present. Small hiatal hernia. Lack of contrast limits assessment of abdominal organs and vasculature.Liver transplant. The liver and spleen are normal in size and contour.Normal adrenal glands. Gallbladder absent. Increased without findings ofpancreatitis. Kidneys are atrophic. Negative for hydronephrosis or hydroureter. Wall thickening of bladderwhich may relate to underdistention. Prostate mildly enlarged. Negative for pneumoperitoneum. No bowel obstruction. Normal appendix.There are several ventral abdominal hernias for example smallfat-containing upper abdominal ventral hernia (2/44). Large midlineventral hernia which contains nonobstructed small bowel loop above the umbilicus. Abdominal aorta without aneurysm. No fluidcollection in the abdomen or pelvis. Advanced disc disease at L4-5 withendplate sclerosis. Laminectomy defect at L4. Chronic L4 pars defects.Sacralized L5 vertebral body. Negative for acute fracture. IMPRESSION: Impression: 1. No acute abnormality in the abdomen or pelvis. 2. Normal appendix. 3. Wall thickening of bladder may relate to underdistention, correlatewith urinalysis to exclude cystitis. 4. Midline ventral hernia containing nonobstructed small bowel loops. 5. Additional chronic findings above. Electronically Signed: Massimo Burns MD 10/27/2023 9:08 PM EDT Workstation ID: [id number] Dontae Gruber MD IMG CT ORDERABLES Final Result * POC Glucose Once (10/27/2023 5:33 PM EDT) Glucose 107 70 - 130 mg/dL 10/27/2023 5:35 PM EDT [facility] Blood 10/27/2023 5:33 PM EDT 10/27/2023 5:35 PM EDT Michelle Shore DO POINT OF CARE TEST ORDERABLE S Final Result Performing Organization Address City/[facility]/ZIP Co de Phone Number [facility]
[address] [place] [address], * (ABNORMAL) POC Glucose Once (10/27/2023 7:46 AM EDT) Glucose 157(H) 70 - 130 mg/dL 10/27/2023 7:47 AM EDT [facility] Blood 10/27/2023 7:46 AM EDT 10/27/2023 7:47 AM EDT Michelle Shore DO POINT OF CARE TEST ORDERABLE S Final Result Performing Organization Address City/[facility]/ZIP Co de Phone Number [facility]
[address] [place] [address], * Vancomycin, Random (10/27/2023 5:00 AM EDT) Vancomycin Random 7.70 5.00 - 40.00 mcg/mL 10/27/2023 3:01 PM EDT [facility] Blood Venipuncture / Unknown 10/27/2023 5:00 AM EDT 10/27/2023 5:29 AM EDT [facility] - 10/27/2023 3:01 PM EDT Therapeutic Ranges for Vancomycin Vancomycin Random ?? 5.0-40.0 mcg/mL Vancomycin Trough ?? 5.0-20.0 mcg/mL Vancomycin Peak ? 20.0-40.0 mcg/mL [facility] LAB BLOOD ORDERABLES Final Resu lt [facility]
[address] [place] [address], * (ABNORMAL) CBC Auto Differential (10/27/2023 5:00 AM EDT) WBC 4.56 3.40 - 10.80 10*3/mm3 10/27/2023 5:36 AM EDT [facility] RBC 3.56(L) 4.14 - 5.80 10*6/mm3 10/27/2023 5:36 AM EDT [facility] Hemoglobin 11.3(L) 13.0 - 17.7 g/dL 10/27/2023 5:36 AM EDT [facility] Hematocrit 36.3(L) 37.5 - 51.0 % 10/27/2023 5:36 AM EDT [facility] MCV 102.0(H) 79.0 - 97.0 fL 10/27/2023 5:36 AM EDT [facility] MCH 31.7 26.6 - 33.0 pg 10/27/2023 5:36 AM EDT [facility] MCHC 31.1(L) 31.5 - 35.7 g/dL 10/27/2023 5:36 AM EDT [facility] RDW 14.2 12.3 - 15.4 % 10/27/2023 5:36 AM [facility] RDW-SD 53.5 37.0 - 54.0 fl 10/27/2023 5:36 AM [facility] MPV 9.6 6.0 - 12.0 fL 10/27/2023 5:36 AM [facility] Platelets 233 140 - 450 10*3/mm3 10/27/2023 5:36 AM [facility] Neutrophil % 57.3 42.7 - 76.0 % 10/27/2023 5:36 AM [facility] Lymphocyte % 22.8 19.6 - 45.3 % 10/27/2023 5:36 AM [facility] Monocyte % 11.6 5.0 - 12.0 % 10/27/2023 5:36 AM [facility] Eosinophil % 5.0 0.3 - 6.2 % 10/27/2023 5:36 AM [facility] Basophil % 0.4 0.0 - 1.5 % 10/27/2023 5:36 AM [facility] Immature Grans % 2.9(H) 0.0 - 0.5 % 10/27/2023 5:36 AM [facility] Neutrophils, Absolute 2.61 1.70 - 7.00 10*3/mm3 10/27/2023 5:36 AM [facility] Lymphocytes, Absolute 1.04 0.70 - 3.10 10*3/mm3 10/27/2023 5:36 AM [facility] Monocytes, Absolute 0.53 0.10 - 0.90 10*3/mm3 10/27/2023 5:36 AM [facility] Eosinophils, Absolute 0.23 0.00 - 0.40 10*3/mm3 10/27/2023 5:36 AM [facility] Basophils, Absolute 0.02 0.00 - 0.20 10*3/mm3 10/27/2023 5:36 AM [facility] Immature Grans, Absolute 0.13(H) 0.00 - 0.05 10*3/mm3 10/27/2023 5:36 AM EDT [facility] nRBC 0.0 0.0 - 0.2 /100 WBC 10/27/2023 5:36 AM EDT [facility] Blood Venipuncture / Unknown 10/27/2023 5:00 AM EDT 10/27/2023 5:29 AM EDT Jennifer Davison MD LAB BLOOD ORDERABLES Final Resul t Performing Organization Address [facility] de Phone Number [facility]
[address] [place] [address], * Hepatitis Panel, Acute (10/27/2023 5:00 AM EDT) Hepatitis B Surface Ag Non-Reacti ve Non-Reacti ve 10/27/2023 6:02 AM EDT [facility] Hep A IgM Non-Reacti ve Non-Reacti ve 10/27/2023 6:02 AM EDT [facility] Hep B C IgM Non-Reacti ve Non-Reacti ve 10/27/2023 6:02 AM EDT [facility] Hepatitis C Ab Non-Reacti ve Non-Reacti ve 10/27/2023 6:02 AM EDT [facility] Blood Venipuncture / Unknown 10/27/2023 5:00 AM EDT 10/27/2023 5:29 AM EDT Narrative [facility] - 10/27/2023 6:02 AM EDT Results may be falsely decreased if patient taking Biotin. Jennifer Davison MD LAB BLOOD ORDERABLES Final Resul t Performing Organization Address [facility] Co de Phone Number [facility]
[address] [place] [address], * (ABNORMAL) Comprehensive Metabolic Panel (10/27/2023 5:00 AM EDT) Glucose 173(H) 65 - 99 mg/dL 10/27/2023 5:55 AM T [facility] BUN 41(H) 6 - 20 mg/dL 10/27/2023 5:55 AM T [facility] Creatinine 6.81(H) 0.76 - 1.27 mg/dL 10/27/2023 5:55 AM T [facility] Sodium 134(L) 136 - 145 mmol/L 10/27/2023 5:55 AM T [facility] Potassium 5.0 3.5 - 5.2 mmol/L 10/27/2023 5:55 AM T [facility] Chloride 95(L) 98 - 107 mmol/L 10/27/2023 5:55 AM [facility] CO2 27.0 22.0 - 29.0 mmol/L 10/27/2023 5:55 AM [facility] Calcium 9.0 8.6 - 10.5 mg/dL 10/27/2023 5:55 AM [facility] Total Protein 6.5 6.0 - 8.5 g/dL 10/27/2023 5:55 AM [facility] Albumin 4.1 3.5 - 5.2 g/dL 10/27/2023 5:55 AM [facility] ALT (SGPT) 8 1 - 41 U/L 10/27/2023 5:55 AM [facility] AST (SGOT) 12 1 - 40 U/L 10/27/2023 5:55 AM [facility] Alkaline Phosphatase 129(H) 39 - 117 U/L 10/27/2023 5:55 AM [facility] Total Bilirubin 0.4 0.0 - 1.2 mg/dL 10/27/2023 5:55 AM [facility] Globulin 2.4 gm/dL 10/27/2023 5:55 AM [facility] Comment:Calculated Result A/G Ratio 1.7 g/dL 10/27/2023 5:55 AM EDT [facility] BUN/Creatinine Ratio 6.0(L) 7.0 - 25.0 10/27/2023 5:55 AM EDT [facility] Anion Gap 12.0 5.0 - 15.0 mmol/L 10/27/2023 5:55 AM EDT [facility] eGFR 9.2(L) >60.0 mL/min/1.7 3 10/27/2023 5:55 AM EDT [facility] Comment:<15 Indicative of ki dney failure Blood Venipuncture / Unknown 10/27/2023 5:00 AM EDT 10/27/2023 5:29 AM EDT Narrative [facility] - 10/27/2023 5:55 AM EDT GFR Normal >60 Chronic Kidney Disease <60 Kidney Failure <15 Jennifer Davison MD LAB BLOOD ORDERABLES Final Resul t [facility]
[address] [place] [address], * (ABNORMAL) POC Glucose Once (10/26/2023 3:05 PM EDT) Glucose 256(H) 70 - 130 mg/dL 10/26/2023 3:07 PM EDT [facility] Blood 10/26/2023 3:05 PM EDT 10/26/2023 3:07 PM EDT Jennifer Davison MD POINT OF CARE TEST ORDERABLES Fi nal Result [facility]
[address] [place] [address], * Potassium (10/26/2023 2:23 PM EDT) Potassium 4.5 3.5 - 5.2 mmol/L 10/26/2023 3:13 PM EDT [facility] Comment:Slight hemolysis det ected by analyzer. Result may be falsely elevated. Blood Venipuncture / Unknown 10/26/2023 2:23 PM EDT 10/26/2023 2:55 PM EDT Jennifer Davison MD LAB BLOOD ORDERABLES Final Resul t [facility]
[address] [place] [address], * Hemodialysis Inpatient (10/26/2023 10:18 AM EDT) Narrative Kody Wong MD - 10/26/2023 10:18 AM EDT Kody Wong MD ? 10/26/2023 10:18 AM Hemodialysis visit notes: Using tunneled catheter at this time. Patient tolerating well. Vital signs stable. High risk complex patient with multiple medical problems. Case discussed with RN in detail. Kody Wong MD DIALYSIS ORDERABLES Final Re sult * (ABNORMAL) CBC Auto Differential (10/26/2023 7:03 AM EDT) WBC 5.45 3.40 - 10.80 10*3/mm3 10/26/2023 7:34 AM EDT [facility] RBC 3.62(L) 4.14 - 5.80 10*6/mm3 10/26/2023 7:34 AM EDT [facility] Hemoglobin 11.4(L) 13.0 - 17.7 g/dL 10/26/2023 7:34 AM EDT [facility] Hematocrit 37.5 37.5 - 51.0 % 10/26/2023 7:34 AM EDT [facility] MCV 103.6(H) 79.0 - 97.0 fL 10/26/2023 7:34 AM EDT [facility] MCH 31.5 26.6 - 33.0 pg 10/26/2023 7:34 AM [facility] MCHC 30.4(L) 31.5 - 35.7 g/dL 10/26/2023 7:34 AM [facility] RDW 14.1 12.3 - 15.4 % 10/26/2023 7:34 AM [facility] RDW-SD 53.8 37.0 - 54.0 fl 10/26/2023 7:34 AM [facility] MPV 9.7 6.0 - 12.0 fL 10/26/2023 7:34 AM [facility] Platelets 235 140 - 450 10*3/mm3 10/26/2023 7:34 AM [facility] Neutrophil % 60.3 42.7 - 76.0 % 10/26/2023 7:34 AM [facility] Lymphocyte % 23.3 19.6 - 45.3 % 10/26/2023 7:34 AM [facility] Monocyte % 9.0 5.0 - 12.0 % 10/26/2023 7:34 AM [facility] Eosinophil % 3.1 0.3 - 6.2 % 10/26/2023 7:34 AM [facility] Basophil % 0.6 0.0 - 1.5 % 10/26/2023 7:34 AM [facility] Immature Grans % 3.7(H) 0.0 - 0.5 % 10/26/2023 7:34 AM [facility] Neutrophils, Absolute 3.29 1.70 - 7.00 10*3/mm3 10/26/2023 7:34 AM [facility] Lymphocytes, Absolute 1.27 0.70 - 3.10 10*3/mm3 10/26/2023 7:34 AM [facility] Monocytes, Absolute 0.49 0.10 - 0.90 10*3/mm3 10/26/2023 7:34 [facility] Eosinophils, Absolute 0.17 0.00 - 0.40 10*3/mm3 10/26/2023 7:34 AM EDT [facility] Basophils, Absolute 0.03 0.00 - 0.20 10*3/mm3 10/26/2023 7:34 AM EDT [facility] Immature Grans, Absolute 0.20(H) 0.00 - 0.05 10*3/mm3 10/26/2023 7:34 AM EDT [facility] nRBC 0.0 0.0 - 0.2 /100 WBC 10/26/2023 7:34 AM EDT [facility] Blood Venipuncture / Unknown 10/26/2023 7:03 AM EDT 10/26/2023 7:25 AM EDT Jayce Irizarry PA-C LAB BLOOD ORDERABLES Final Result [facility]
[address] [place] [address], * (ABNORMAL) Comprehensive Metabolic Panel (10/26/2023 7:03 AM EDT) Glucose 99 65 - 99 mg/dL 10/26/2023 7:52 AM EDT [facility] BUN 62(H) 6 - 20 mg/dL 10/26/2023 7:52 AM EDT [facility] Creatinine 10.13(H) 0.76 - 1.27 mg/dL 10/26/2023 7:52 AM EDT [facility] Sodium 141 136 - 145 mmol/L 10/26/2023 7:52 AM EDT [facility] Potassium 5.4(H) 3.5 - 5.2 mmol/L 10/26/2023 7:52 AM EDT [facility] Chloride 102 98 - 107 mmol/L 10/26/2023 7:52 AM EDT [facility] CO2 21.0(L) 22.0 - 29.0 mmol/L 10/26/2023 7:52 AM EDT [facility] Calcium 9.2 8.6 - 10.5 mg/dL 10/26/2023 7:52 AM [facility] Total Protein 7.4 6.0 - 8.5 g/dL 10/26/2023 7:52 AM T [facility] Albumin 4.2 3.5 - 5.2 g/dL 10/26/2023 7:52 AM [facility] ALT (SGPT) 8 1 - 41 U/L 10/26/2023 7:52 AM [facility] AST (SGOT) 12 1 - 40 U/L 10/26/2023 7:52 AM [facility] Alkaline Phosphatase 133(H) 39 - 117 U/L 10/26/2023 7:52 AM [facility] Total Bilirubin 0.3 0.0 - 1.2 mg/dL 10/26/2023 7:52 AM [facility] Globulin 3.2 gm/dL 10/26/2023 7:52 AM [facility] Comment:Calculated Result A/G Ratio 1.3 g/dL 10/26/2023 7:52 AM [facility] BUN/Creatinine Ratio 6.1(L) 7.0 - 25.0 10/26/2023 7:52 AM [facility] Anion Gap 18.0(H) 5.0 - 15.0 mmol/L 10/26/2023 7:52 AM [facility] eGFR 5.7(L) >60.0 mL/min/1. 73 10/26/2023 7:52 AM [facility] Comment:<15 Indicative of ki dney failure Blood Venipuncture / Unknown 10/26/2023 7:03 AM EDT 10/26/2023 7:25 AM T [facility] - 10/26/2023 7:52 AM EDT GFR Normal >60 Chronic Kidney Disease <60 Kidney Failure <15 Jayce Irizarry PA-C LAB BLOOD ORDERABLES Final Result Performing Organization Address City/[facility]/ZIP Co de Phone Number [facility]
[address] [place] [address], * (ABNORMAL) Blood Culture - Blood, Hand, Right (10/26/2023 5:36 AM EDT) Blood Culture Facklamia hominis(AA) 11/03/2023 1:53 PM EDT [facility] Comment:Refer to previous bl ood culture collected on 10/26/2023 0500 and sent to [facility] for MICs Isolated from 11/03/2023 1:53 PM EDT [facility] Gram Stain Aerobic Bottle Gram positive cocci in pairs and chains(AA) 11/03/2023 1:53 PM EDT [facility] Blood Structure of right hand / Unknown Venipuncture / Unknown 10/26/2023 5:36 AM EDT 10/26/2023 6:40 AM EDT Narrative [facility] - 11/03/2023 1:53 PM EDT Less than seven (7) mL's of blood was collected. ??Insufficient quantity may yield false negative results. Terry Burgess MD MICROBIOLOGY - GENERAL ORD ERABLES Final Result Performing Organization Address [facility] Co de Phone Number [facility]
[address] [place] [address], [facility]
[address] [place] [address], * MRSA Screen, PCR (Inpatient) - Swab, Nares (10/26/2023 5:15 AM EDT) MRSA PCR Negative Negative [employer] 10/26/2023 9:58 AM EDT [facility] Swab Structure of anterior naris / Unknown Collection / Unknown 10/26/2023 5:15 AM EDT 10/26/2023 5:28 AM EDT Narrative [facility] - 10/26/2023 9:58 AM EDT The negative predictive value of this diagnostic test is high and should only be used to consider de-escalating anti-MRSA therapy. A positive result may indicate colonization with MRSA and must be correlated clinically. MRSA Negative Jayce Irizarry PA-C MICROBIOLOGY - GENERAL ORD ERABLES Final Result [facility]
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 Coronavirus 229E Not Detected Not Detected BIOFIRE FILMARRAY 10/26/2023 6:20 AM EDT [facility] LABORATORY Coronavirus HKU1 Not Detected Not Detected BIOFIRE FILMARRAY 10/26/2023 6:20 AM EDT [facility] Coronavirus NL63 Not Detected Not Detected BIOFIRE FILMARRAY 10/26/2023 6:20 AM EDT [facility] Coronavirus OC43 Not Detected Not Detected BIOFIRE FILMARRAY 10/26/2023 6:20 AM EDT [facility] COVID19 Not Detected Not Detected - Ref. Range BIOFIRE FILMARRAY 10/26/2023 6:20 AM EDT [facility] Human Metapneumovirus Not Detected Not Detected BIOFIRE FILMARRAY 10/26/2023 6:20 AM EDT [facility] Human Rhinovirus/Enterov irus Not Detected Not Detected BIOFIRE FILMARRAY 10/26/2023 6:20 AM EDT [facility] Influenza A PCR Not Detected Not Detected BIOFIRE FILMARRAY 10/26/2023 6:20 AM EDT [facility] Influenza B PCR Not Detected Not Detected BIOFIRE FILMARRAY 10/26/2023 6:20 AM EDT [facility] Parainfluenza Virus 1 Not Detected Not Detected BIOFIRE FILMARRAY 10/26/2023 6:20 AM EDT [facility] Parainfluenza Virus 2 Not Detected Not Detected BIOFIRE FILMARRAY 10/26/2023 6:20 AM EDT [facility] Parainfluenza Virus 3 Not Detected Not Detected BIOFIRE FILMARRAY 10/26/2023 6:20 AM EDT [facility] Parainfluenza Virus 4 Not Detected Not Detected BIOFIRE FILMARRAY 10/26/2023 6:20 AM EDT [facility] RSV, PCR Not Detected Not Detected BIOFIRE FILMARRAY 10/26/2023 6:20 AM EDT [facility] Bordetella pertussis pcr Not Detected Not Detected BIOFIRE FILMARRAY 10/26/2023 6:20 AM EDT [facility] Bordetella parapertussis PCR Not Detected Not Detected BIOFIRE FILMARRAY 10/26/2023 6:20 AM EDT [facility] Chlamydophila pneumoniae PCR Not Detected Not Detected BIOFIRE FILMARRAY 10/26/2023 6:20 AM EDT [facility] Mycoplasma pneumo by PCR Not Detected Not Detected BIOFIRE FILMARRAY 10/26/2023 6:20 AM EDT [facility] Swab Nasopharyngeal structure / Unknown Collection / Unknown 10/26/2023 5:15 AM EDT 10/26/2023 5:28 AM EDT [facility] LABORATORY - 10/26/2023 6:20 AM EDT In the setting of a positive respiratory panel with a viral infection PLUS a negative procalcitonin without other underlying concern for bacterial infection, consider observing off antibiotics or discontinuation of antibiotics and continue supportive care. If the respiratory panel is positive for atypical bacterial infection (Bordetella pertussis, Chlamydophila pneumoniae, or Mycoplasma pneumoniae), consider antibiotic de-escalation to target atypical bacterial infection. us Jayce Irizarry PA-C MICROBIOLOGY - GENERAL ORD ERABLES Final Result Performing Organization Address City/[facility]/ZIP Co de Phone Number [facility]
[address] [place] [address], * Blood Culture ID, PCR - Blood, Arm, Right (10/26/2023 5:00 AM EDT) BCID, PCR Negative by BCID PCR. Culture to Follow. Negative by BCID PCR. Culture to Follow. BIOFIRE FILMARRAY 10/27/2023 4:58 PM EDT [facility] BOTTLE TYPE Anaerobic Bottle BIOFIRE FILMARRAY 10/27/2023 4:58 PM EDT [facility] Blood Structure of right upper limb / Unknown Venipuncture / Unknown 10/26/2023 5:00 AM EDT 10/26/2023 6:40 AM EDT Terry Burgess MD MICROBIOLOGY - GENERAL ORD ERABLES Final Result Performing Organization Address City/[facility]/ZIP Co de Phone Number [facility]
[address] [place] [address], * (ABNORMAL) Blood Culture - Blood, Arm, Right (10/26/2023 5:00 AM EDT) Blood Culture [place] bronchialis( AA) GREGORY 11/06/2023 11:32 AM EDT [facility] Comment:ID and Susceptibilit y performed at [facility]. See scanned report. Isolated from Aerobic and Anaerobic Bottles 11/06/2023 11:32 AM EDT [facility] Gram Stain Anaerobic Bottle Gram positive cocci in pairs and chains(AA) 11/06/2023 11:32 AM EDT [facility] Gram Stain Aerobic Bottle Gram positive bacilli(AA) 11/06/2023 11:32 AM EDT [facility] Blood Structure of right upper limb / Unknown Venipuncture / Unknown 10/26/2023 5:00 AM EDT 10/26/2023 6:40 AM EDT Narrative [facility] - 11/06/2023 11:32 AM EDT Less than seven (7) mL's of blood was collected. ??Insufficient quantity may yield false negative results. Blood culture does not meet the specified criteria for PCR identification. ??If , immunocompromised, or clinical concern for meningitis, call lab to run BCID for Listeria monocytogenes. Terry Burgess MD MICROBIOLOGY - GENERAL ORD ERABLES Final Result [facility]
[address] [place] [address], [facility]
[address] [place] [address], * ECG 12 Lead QT Measurement (10/26/2023 1:01 AM EDT) QT Interval 396 ms ECG QTC Interval 467 ms ECG 10/26/2023 1:01 AM EDT 10/26/2023 7:14 AM EDT [facility] ECG - 10/26/2023 7:14 AM EDT Test Reason : QT Measurement Blood Pressure : ?? */* ?? mmHG Vent. Rate : ??84 BPM ? Atrial Rate : ??84 BPM ?? P-R Int : 224 ms ?QRS Dur : 104 ms ?QT Int : 396 ms ? P-R-T Axes : ??36 ??53 ??74 degrees ?? QTc Int : 467 ms Sinus rhythm with 1st degree AV block Otherwise normal ECG When compared with ECG of 10-AUG-2023 20:31, No significant change was found Confirmed by Terry Burgess ([id number]) on 10/26/2023 7:14:04 AM Referred By: EDMD ? Confirmed By: Terry Burgess Procedure Note Terry Burgess MD - 10/26/2023 Test Reason : QT Measurement Blood Pressure : */* mmHG Vent. Rate : 84 BPM Atrial Rate : 84 BPM P-R Int : 224 ms QRS Dur : 104 ms QT Int : 396 ms P-R-T Axes : 36 53 74 degrees QTc Int : 467 ms Sinus rhythm with 1st degree AV block Otherwise normal ECG When compared with ECG of 10-AUG-2023 20:31, No significant change was found Confirmed by Terry Burgess ([id number]) on 10/26/2023 7:14:04 AM Referred By: EDMD Confirmed By: Terry Burgess us Terry Burgess MD ECG ORDERABLES Final Resu lt ECG * (ABNORMAL) CBC Auto Differential (10/26/2023 12:33 AM EDT) WBC 5.33 3.40 - 10.80 10*3/mm3 10/26/2023 12:55 AM EDT [facility] RBC 3.58(L) 4.14 - 5.80 10*6/mm3 10/26/2023 12:55 AM EDT [facility] Hemoglobin 11.3(L) 13.0 - 17.7 g/dL 10/26/2023 12:55 AM EDT [facility] Hematocrit 35.7(L) 37.5 - 51.0 % 10/26/2023 12:55 AM EDT [facility] MCV 99.7(H) 79.0 - 97.0 fL 10/26/2023 12:55 AM EDT [facility] MCH 31.6 26.6 - 33.0 pg 10/26/2023 12:55 AM EDT [facility] MCHC 31.7 31.5 - 35.7 g/dL 10/26/2023 12:55 AM EDT [facility] RDW 14.3 12.3 - 15.4 % 10/26/2023 12:55 AM EDT [facility] RDW-SD 52.8 37.0 - 54.0 fl 10/26/2023 12:55 AM [facility] MPV 9.8 6.0 - 12.0 fL 10/26/2023 12:55 AM [facility] Platelets 250 140 - 450 10*3/mm3 10/26/2023 12:55 AM [facility] Neutrophil % 63.3 42.7 - 76.0 % 10/26/2023 12:55 AM [facility] Lymphocyte % 20.5 19.6 - 45.3 % 10/26/2023 12:55 AM [facility] Monocyte % 8.6 5.0 - 12.0 % 10/26/2023 12:55 AM [facility] Eosinophil % 3.4 0.3 - 6.2 % 10/26/2023 12:55 AM [facility] Basophil % 0.6 0.0 - 1.5 % 10/26/2023 12:55 AM [facility] Immature Grans % 3.6(H) 0.0 - 0.5 % 10/26/2023 12:55 AM [facility] Neutrophils, Absolute 3.38 1.70 - 7.00 10*3/mm3 10/26/2023 12:55 AM [facility] Lymphocytes, Absolute 1.09 0.70 - 3.10 10*3/mm3 10/26/2023 12:55 AM [facility] Monocytes, Absolute 0.46 0.10 - 0.90 10*3/mm3 10/26/2023 12:55 AM [facility] Eosinophils, Absolute 0.18 0.00 - 0.40 10*3/mm3 10/26/2023 12:55 AM [facility] Basophils, Absolute 0.03 0.00 - 0.20 10*3/mm3 10/26/2023 12:55 AM [facility] Immature Grans, Absolute 0.19(H) 0.00 - 0.05 10*3/mm3 10/26/2023 12:55 AM EDT [facility] nRBC 0.0 0.0 - 0.2 /100 WBC 10/26/2023 12:55 AM EDT [facility] Blood Venipuncture / Unknown 10/26/2023 12:33 AM EDT 10/26/2023 12:52 AM EDT us Terry Burgess MD LAB BLOOD ORDERABLES Final Result Performing Organization Address City/[facility]/ZIP Co de Phone Number [facility]
[address] [place] [address], * Magnesium (10/26/2023 12:33 AM EDT) Magnesium 1.9 1.6 - 2.6 mg/dL 10/26/2023 1:51 AM EDT [facility] Blood Line / Unknown 10/26/2023 12 :33 AM EDT 10/26/2023 1:33 AM EDT us Terry Burgess MD LAB BLOOD ORDERABLES Final Result Performing Organization Address [facility] de Phone Number [facility]
[address] [place] [address], * (ABNORMAL) Procalcitonin (10/26/2023 12:33 AM EDT) Procalcitonin 0.44(H) 0.00 - 0.25 ng/mL 10/26/2023 1:54 AM EDT [facility] Blood Line / Unknown 10/26/2023 12 :33 AM EDT 10/26/2023 1:33 AM EDT Narrative [facility] - 10/26/2023 1:54 AM EDT As a Marker for Sepsis (Non-Neonates): 1. <0.5 ng/mL represents a low risk of severe sepsis and/or septic shock. 2. >2 ng/mL represents a high risk of severe sepsis and/or septic shock. As a Marker for Lower Respiratory Tract Infections that require antibiotic therapy: PCT on Admission ?Antibiotic Therapy ? 6-12 Hrs later >0.5 ?Strongly Recommended >0.25 - <0.5 ?Recommended 0.1 - 0.25 ?Discouraged ?Remeasure/reassess PCT <0.1 ?Strongly Discouraged ? Remeasure/reassess PCT As 28 day mortality risk marker: Change in Procalcitonin Result (>80% or <=80%) if Day 0 (or Day 1) and Day 4 values are available. Refer to http://www.[facility]-sebdudjeri.com Change in PCT <=80% A decrease of PCT levels below or equal to 80% defines a positive change in PCT test result representing a higher risk for 28-day all-cause mortality of patients diagnosed with severe sepsis for septic shock. Change in PCT >80% A decrease of PCT levels of more than 80% defines a negative change in PCT result representing a lower risk for 28-day all-cause mortality of patients diagnosed with severe sepsis or septic shock. Terry Burgess MD LAB BLOOD ORDERABLES Final Result [facility]
[address] [place] [address], * Lactic Acid, Plasma (10/26/2023 12:33 AM EDT) [facility] Lactate 0.7 0.5 - 2.0 mmol/L 10/26/2023 1:15 AM EDT [facility] Comment:Falsely depressed re sults may occur on samples drawn from patients receiving N-Acetylcysteine (NAC) or Metamizole. Blood Venipuncture / Unknown 10/26/2023 12:33 AM EDT 10/26/2023 12:52 AM EDT us Terry Burgess MD LAB BLOOD ORDERABLES Final Result Performing Organization Address [facility] Co de Phone Number [facility]
[address] [place] [address], [place] [phone] * Protime-INR (10/26/2023 12:33 AM EDT) Protime 14.2 12.2 - 14.5 Seconds 10/26/2023 1:14 AM EDT [facility] INR 1.08 0.89 - 1.12 10/26/2023 1:14 AM EDT [facility] Blood Venipuncture / Unknown 10/26/2023 12:33 AM EDT 10/26/2023 12:52 AM EDT us Terry Burgess MD LAB BLOOD ORDERABLES Final Result Performing Organization Address [facility] de Phone Number [facility]
[address] [place] [address], [place] [phone] * (ABNORMAL) aPTT (10/26/2023 12:33 AM EDT) PTT 29.0(L) 60.0 - 90.0 seconds 10/26/2023 1:14 AM EDT [facility] Blood Venipuncture / Unknown 10/26/2023 12:33 AM EDT 10/26/2023 12:52 AM EDT Narrative [facility] - 10/26/2023 1:14 AM EDT PTT = The equivalent PTT values for the therapeutic range of heparin levels at 0.3 to 0.5 U/ml are 60 to 70 seconds. us Terry Burgess MD LAB BLOOD ORDERABLES Final Result Performing Organization Address City/[facility] Co de Phone Number [facility]
[address] [place] [address], * (ABNORMAL) Comprehensive Metabolic Panel (10/26/2023 12:33 AM EDT) Glucose 104(H) 65 - 99 mg/dL 10/26/2023 1:51 AM EDT [facility] BUN 60(H) 6 - 20 mg/dL 10/26/2023 1:51 AM EDT [facility] Creatinine 9.74(H) 0.76 - 1.27 mg/dL 10/26/2023 1:51 AM EDT [facility] Sodium 142 136 - 145 mmol/L 10/26/2023 1:51 AM EDT [facility] Potassium 5.8(H) 3.5 - 5.2 mmol/L 10/26/2023 1:51 AM EDT [facility] Comment:Slight hemolysis det ected by analyzer. Result may be falsely elevated. Chloride 102 98 - 107 mmol/L 10/26/2023 1:51 AM EDT [facility] CO2 22.0 22.0 - 29.0 mmol/L 10/26/2023 1:51 AM EDT [facility] Calcium 8.8 8.6 - 10.5 mg/dL 10/26/2023 1:51 AM EDT [facility] Total Protein 7.0 6.0 - 8.5 g/dL 10/26/2023 1:51 AM EDT [facility] Albumin 4.2 3.5 - 5.2 g/dL 10/26/2023 1:51 AM EDT [facility] ALT (SGPT) 8 1 - 41 U/L 10/26/2023 1:51 AM EDT [facility] AST (SGOT) 14 1 - 40 U/L 10/26/2023 1:51 AM EDT [facility] Alkaline Phosphatase 134(H) 39 - 117 U/L 10/26/2023 1:51 AM EDT [facility] Total Bilirubin 0.3 0.0 - 1.2 mg/dL 10/26/2023 1:51 AM EDT [facility] Globulin 2.8 gm/dL 10/26/2023 1:51 AM EDT [facility] Comment:Calculated Result A/G Ratio 1.5 g/dL 10/26/2023 1:51 AM EDT [facility] BUN/Creatinine Ratio 6.2(L) 7.0 - 25.0 10/26/2023 1:51 AM EDT [facility] Anion Gap 18.0(H) 5.0 - 15.0 mmol/L 10/26/2023 1:51 AM EDT [facility] eGFR 6.0(L) >60.0 mL/min/1.7 3 10/26/2023 1:51 AM EDT [facility] Comment:<15 Indicative of ki dney failure Blood Line / Unknown 10/26/2023 12 :33 AM EDT 10/26/2023 1:33 AM EDT Narrative [facility] - 10/26/2023 1:51 AM EDT GFR Normal >60 Chronic Kidney Disease <60 Kidney Failure <15 Terry Burgess MD LAB BLOOD ORDERABLES Final Result [facility]
[address] [place] [address], * XR Chest 1 View (10/25/2023 11:15 PM EDT) Anatomical Region Laterality Modality Body N/A Radiographic Sobia ging 10/25/2023 11:2 0 PM EDT Impressions 10/25/2023 11:22 PM EDT Impression: Right lower lobe pneumonia. Follow-up to resolution recommended. Electronically Signed: Ashli Abreu MD 10/25/2023 11:22 PM EDT Workstation ID: [id number] Narrative 10/25/2023 11:22 PM EDT XR CHEST 1 VW Date of Exam: 10/25/2023 11:00 PM EDT Indication: cough Comparison: 08/02/2023. Findings: Patchy airspace disease is seen within the right lower lobe. Right internal jugular PermCath with the tip in the upper SVC.. No pleural fluid. No pneumothorax. The pulmonary vasculature appears within normal limits. The cardiac and mediastinal silhouette appear unremarkable. No acute osseous abnormality identified. Procedure Note Ashli Abreu MD - 10/25/2023 XR CHEST 1 VW Date of Exam: 10/25/2023 11:00 PM EDT Indication: cough Comparison: 08/02/2023. Findings: Patchy airspace disease is seen within the right lower lobe. Rightinternal jugular PermCath with the tip in the upper SVC.. No pleuralfluid. No pneumothorax. The pulmonary vasculature appears within normallimits. The cardiac and mediastinal silhouette appear unremarkable. No acute osseous abnormality identified. IMPRESSION: Impression: Right lower lobe pneumonia. Follow-up to resolution recommended. Electronically Signed: Ashli Abreu MD 10/25/2023 11:22 PM EDT Workstation ID: [id number] Terry Burgess MD IMG DIAGNOSTIC IMAGING ORD ERABLES Final Result documented in this encounter Visit Diagnoses Diagnosis Arm pain- Primary Pain in soft tissues of limb Occlusion of arteriovenous dialysis graft Cellulitis of left arm Pneumonia of right lower lobe due to infectious organism ESRD on hemodialysis KIM (nonalcoholic steatohepatitis) Other chronic nonalcoholic liver disease History of liver transplant Liver replaced by transplant Immunosuppression Type 2 diabetes mellitus ESRD (end stage renal disease) End stage renal disease Pneumonia Pneumonia, organism unspecified Hyperkalemia Hyperpotassemia documented in this encounter Admitting Diagnoses Diagnosis Arm pain Pain in soft tissues of limb documented in this encounter Administered Medications Inactive Administered Medications - up to 3 most recent administrations Medication Order MAR Action Action Date Dose Rate Site *Patient Supplied* entecavir (BARACLUDE) tablet 0.5 mg 0.5 mg, Oral, Weekly, First dose (after last modification) on Bobbi 11/02/23 at 0900, Group 1 (Yellow) Hazardous Drug - See Handling Guide, Can the patient use their own supply during their hospitalization? Yes, Name of Medication: entecavir acetaminophen (TYLENOL) tablet 650 mg 650 mg, Oral, Every 4 Hours PRN, Mild Pain, Starting on Bobbi 10/26/23 at 0626, If given for fever, use fever parameter: fever greater than 100.4 ??F Based on patient request - if ordered for moderate or severe pain, provider allows for administration of a medication prescribed for a lower pain scale. Do not exceed 4 grams of acetaminophen in a 24 hr period. Max dose of 2gm for AST/ALT greater than 120 units/L. If given for pain, use the following pain scale: Mild Pain = Pain Score of 1-3, CPOT 1-2 Moderate Pain = Pain Score of 4-6, CPOT 3-4 Severe Pain = Pain Score of 7-10, CPOT 5-8 Given 10/27/2023 1:29 PM EDT 650 mg albumin human 25 % IV SOLN 12.5 g 12.5 g, Intravenous, Administer over 30 Minutes, As Needed, Hypotension During Dialysis, Starting on Mon10/27/23 at 1157, For 4 doses, Maintain SBP Greater Than 90 During Dialysis. May repeat x 3 doses (4 doses total), Indications: Hemodialysis ProcedureIndications:Hemodialysis Procedure New Bag 10/27/2023 1:07 PM EDT 25 g albuterol (PROVENTIL) nebulizer solution 0.083% 2.5 mg/3mL 2.5 mg, Nebulization, Every 6 Hours PRN, Shortness of Air, Starting on Mon11/01/23 at 1026, Include Respiratory Treatment Education ALPRAZolam (XANAX) tablet 0.5 mg 0.5 mg, Oral, Daily PRN, Anxiety, Starting on Mon10/26/23 at 1508, {MICHELE} Caution: Look alike/sound alike drug alert. Avoid grapefruit juice Given 11/02/2023 1:42 AM EDT 0.5 mg Given 11/01/2023 6:41 PM EDT 0.5 mg Given 10/31/2023 10:06 PM EDT 0.5 mg aspirin chewable tablet 81 mg 81 mg, Oral, Daily, First dose on Mon10/26/23 at 0900, Herbal/drug interaction: Avoid use with ginkgo biloba. Based on patient request - if ordered for moderate or severe pain, provider allows for administration of a medication prescribed for a lower pain scale. Do not exceed 4 grams of aspirin in a 24 hr period. If given for pain, use the following pain scale: Mild Pain = Pain Score of 1-3, CPOT 1-2 Moderate Pain = Pain Score of 4-6, CPOT 3-4 Severe Pain = Pain Score of 7-10, CPOT 5-8 Given 11/02/2023 9:46 AM EDT 81 mg Given 11/01/2023 8:48 AM EDT 81 mg Given 10/31/2023 8:32 AM EDT 81 mg bisacodyl (DULCOLAX) EC tablet 5 mg 5 mg, Oral, Daily PRN, Constipation, Use if polyethylene glycol is ineffective, Starting on Bobbi 10/26/23 at 0626, Use if no bowel movement after 12 hours. Swallow whole. Do not crush, split, or chew tablet. bisacodyl (DULCOLAX) suppository 10 mg 10 mg, Rectal, Daily PRN, Constipation, Use if bisacodyl oral is ineffective, Starting on Mon10/26/23 at 0626, Use if no bowel movement after 12 hours. Hold for diarrhea calcitriol (ROCALTROL) capsule 0.25 mcg 0.25 mcg, Oral, Daily, First dose on Mon10/26/23 at 0900 Given 11/02/2023 9:46 AM EDT 0.25 mcg Given 11/01/2023 8:55 AM EDT 0.25 mcg Given 10/31/2023 8:34 AM EDT 0.25 mcg calcium acetate (PHOS BINDER)) capsule 667 mg 667 mg, Oral, 3 Times Daily, First dose on Mon10/26/23 at 0800, Take with food. Given 10/26/2023 9:22 AM EDT 667 mg carBAMazepine (TEGretol) tablet 200 mg 200 mg, Oral, Nightly, First dose on Mon10/26/23 at 2100, Group 1 (Yellow) Hazardous Drug - See Handling Guide Given 11/01/2023 10:21 PM EDT 200 mg Given 10/31/2023 10:07 PM EDT 200 mg Given 10/30/2023 8:47 PM EDT 200 mg carvedilol (COREG) tablet 25 mg 25 mg, Oral, 2 Times Daily With Meals, First dose on Bobbi 10/26/23 at 0800, Hold for SBP less than 100, DBP less than 60, or heart rate less than 50. If a dose is held, please contact the provider. Give with food. Given 11/02/2023 9:45 AM EDT 25 mg Given 11/01/2023 6:43 PM EDT 25 mg Given 10/31/2023 5:11 PM EDT 25 mg cefTRIAXone (ROCEPHIN) 2,000 mg in sodium chloride 0.9 % 100 mL MBP 2,000 mg, Intravenous, at 200 mL/hr, Administer over 30 Minutes, Every 24 Hours, First dose on Mon10/30/23 at 1700, For 14 days, LR should be paused and flushing of the line with NS is recommended prior to and after completion of ceftriaxone infusion due to incompatibility. Do not co-adminster with calcium-containing solutions. Caution: Look alike/sound alike drug alert, Indications: BacteremiaIndications:Bacteremia New Bag 11/02/2023 4:05 PM EDT 2,000 mg 200 mL/hr New Bag 11/01/2023 6:44 PM EDT 2,000 mg 200 mL/hr New Bag 10/31/2023 5:06 PM EDT 2,000 mg 200 mL/hr cinacalcet (SENSIPAR) tablet 90 mg 90 mg, Oral, Nightly, First dose on Mon10/26/23 at 2100, Do not crush or chew the capsules or tablets. The drug may not work as designed if the capsule or tablet is crushed or chewed. Swallow whole. Swallow whole. Do not crush, break, or chew tablet. Take with food. Given 11/01/2023 10:21 PM EDT 90 mg Given 10/31/2023 10:07 PM EDT 90 mg Given 10/30/2023 8:48 PM EDT 90 mg cycloSPORINE modified (NEORAL) capsule 100 mg 100 mg, Oral, Daily, First dose on Mon10/26/23 at 0900, Group 1 (Yellow) Hazardous Drug - See Handling Guide Given 10/26/2023 9:20 AM EDT 100 mg cycloSPORINE modified (NEORAL) capsule 100 mg 100 mg, Oral, 2 Times Daily, First dose (after last modification) on Mon10/26/23 at 2100, Group 1 (Yellow) Hazardous Drug - See Handling Guide Given 11/02/2023 9:45 AM EDT 100 mg Given 11/01/2023 10:23 PM EDT 100 mg Given 11/01/2023 8:54 AM EDT 100 mg dextrose (D50W) (25 g/50 mL) IV injection 25 g 25 g, Intravenous, Every 15 Minutes PRN, Low Blood Sugar, Blood Sugar Less Than 70, Starting on Bobbi 10/26/23 at 0639, Blood sugar less than 70; patient has IV access - Unresponsive, NPO or Unable To Safely Swallow dextrose (GLUTOSE) oral gel 15 g 15 g, Oral, Every 15 Minutes PRN, Low Blood Sugar, Blood sugar less than 70, Starting on Bobbi 10/26/23 at 0639, BS<70, Patient Alert, Is not NPO, Can safely swallow. diphenhydrAMINE (BENADRYL) 50 MG/ML injection - ADS Override Pull Starting on Mon11/01/23 at 1705, For 1 dose, Created by cabinet override Caution: Look alike/sound alike drug alert. This med may be ordered in other forms and routes. Before giving verify the last time the drug was given by any route/form. Given 11/01/2023 5:09 PM EDT 25 mg diphenhydrAMINE (BENADRYL) capsule 25 mg 25 mg, Oral, Once, On Mon10/27/23 at 0030, For 1 dose, Caution: Look alike/sound alike drug alert. This med may be ordered in other forms and routes. Before giving verify the last time the drug was given by any route/form. Given 10/26/2023 11:42 PM EDT 25 mg diphenhydrAMINE (BENADRYL) capsule 25 mg 25 mg, Oral, Every 6 Hours PRN, Allergies, Starting on 10/28/23 at 1845, Caution: Look alike/sound alike drug alert. This med may be ordered in other forms and routes. Before giving verify the last time the drug was given by any route/form. Given 10/30/2023 10:11 PM EDT 25 mg Given 10/30/2023 3:29 PM EDT 25 mg Given 10/29/2023 2:11 AM EDT 25 mg droperidol (INAPSINE) 2.5 MG/ML injection - ADS Override Pull Starting on Mon10/27/23 at 1659, For 1 dose, Created by cabinet override droperidol (INAPSINE) injection 0.625 mg 0.625 mg, Intravenous, Every 15 Minutes PRN, Nausea, Vomiting, Starting on Mon10/27/23 at 1632, For 2 doses Given 10/27/2023 4:59 PM EDT 0.625 mg fenofibrate (TRICOR) tablet 145 mg 145 mg, Oral, Daily, First dose on Mon10/26/23 at 0900, Take with food., Reason for continuation of original order: Elevated triglycerides and pancreatitis Given 11/02/2023 9:45 AM EDT 145 mg Given 11/01/2023 8:48 AM EDT 145 mg Given 10/31/2023 8:34 AM EDT 145 mg fentaNYL citrate (PF) (SUBLIMAZE) 50 mcg/mL injection - ADS Override Pull Starting on Mon10/27/23 at 1649, For 1 dose, Created by cabinet override If given for pain, use the following pain scale: Mild Pain = Pain Score of 1-3, CPOT 1-2 Moderate Pain = Pain Score of 4-6, CPOT 3-4 Severe Pain = Pain Score of 7-10, CPOT 5-8 fentaNYL citrate (PF) (SUBLIMAZE) injection 50 mcg 50 mcg, Intravenous, Every 5 Minutes PRN, Moderate Pain, Starting on Mon10/27/23 at 1632, For 4 doses, Maximum total dose of fentanyl is 200 mcg. If given for pain, use the following pain scale: Mild Pain = Pain Score of 1-3, CPOT 1-2 Moderate Pain = Pain Score of 4-6, CPOT 3-4 Severe Pain = Pain Score of 7-10, CPOT 5-8 Given 10/27/2023 4:49 PM EDT 50 mcg folic acid (FOLVITE) tablet 1,000 mcg 1,000 mcg, Oral, Daily, First dose on Mon10/26/23 at 0900 Given 11/02/2023 9:45 AM EDT 1,000 mcg Given 11/01/2023 8:48 AM EDT 1,000 mcg Given 10/31/2023 8:32 AM EDT 1,000 mcg gabapentin (NEURONTIN) capsule 300 mg 300 mg, Oral, Nightly, First dose on Mon10/26/23 at 2100, {MICHELE} Given 11/01/2023 10:22 PM EDT 300 mg Given 10/31/2023 10:05 PM EDT 300 mg Given 10/30/2023 8:45 PM EDT 300 mg glucagon (GLUCAGEN) injection 1 mg 1 mg, Intramuscular, Every 15 Minutes PRN, Low Blood Sugar, Blood Glucose Less Than 70, Starting on Bobbi 10/26/23 at 0639, Blood Glucose Less Than 70 - Patient Without IV Access - Unresponsive, NPO or Unable To Safely Swallow Reconstitute powder for injection by adding 1 mL of computer operations analyst-supplied sterile diluent or sterile water for injection to a vial containing 1 mg of the drug, to provide solutions containing 1 mg/mL. Shake vial gently to dissolve. guaiFENesin (MUCINEX) 12 hr tablet 1,200 mg 1,200 mg, Oral, Every 12 Hours Scheduled, First dose on Mon10/29/23 at 1015, Caution: Look alike/sound alike drug alert Do not crush, split, or chew. Given 11/02/2023 9:46 AM EDT 1,200 mg Given 11/01/2023 10:22 PM EDT 1,200 mg Given 11/01/2023 8:48 AM EDT 1,200 mg heparin (porcine) 1000 UNIT/ML injection - ADS Override Pull Starting on Mon11/01/23 at 1210, For 1 dose, Created by cabinet override Given 11/01/2023 1:04 PM EDT 2,200 Unit s heparin (porcine) injection 2,000 Units 2,000 Units, Intracatheter, As Needed, hd, Starting on Mon10/26/23 at 1032, For 10 days, Indications: hdIndications:hd Given 11/02/2023 3:30 PM EDT 2, 000 Units Given 11/01/2023 5:10 PM EDT 2,000 Units Given 10/26/2023 1:57 PM EDT 2,000 Units hydrALAZINE (APRESOLINE) 20 MG/ML injection - ADS Override Pull Starting on Mon10/27/23 at 1648, For 1 dose, Created by cabinet override Caution: Look alike/sound alike drug alert hydrALAZINE (APRESOLINE) injection 5 mg 5 mg, Intravenous, Every 10 Minutes PRN, High Blood Pressure, for systolic blood pressure greater than 180 mmHg or diastolic blood pressure greater than 105 mmHg, Starting on Mon10/27/23 at 1632, Up to 20 mg. Caution: Look alike/sound alike drug alert Given 10/27/2023 4:50 PM EDT 5 mg hydrALAZINE (APRESOLINE) tablet 100 mg 100 mg, Oral, 3 Times Daily, First dose on Bobbi 10/26/23 at 0715, Hold for SBP less than 100, DBP less than 60 Caution: Look alike/sound alike drug alert Given 11/02/2023 6:05 AM EDT 100 mg Given 11/01/2023 6:42 PM EDT 100 mg Given 10/31/2023 1:04 PM EDT 100 mg HYDROmorphone (DILAUDID) 1 MG/ML injection - ADS Override Pull Starting on Mon10/27/23 at 1655, For 1 dose, Created by cabinet override {MICHELE} Caution: Look alike/sound alike drug alert If given for pain, use the following pain scale: Mild Pain = Pain Score of 1-3, CPOT 1-2 Moderate Pain = Pain Score of 4-6, CPOT 3-4 Severe Pain = Pain Score of 7-10, CPOT 5-8 HYDROmorphone (DILAUDID) injection 0.25 mg 0.25 mg, Intravenous, Every 2 Hours PRN, Moderate Pain, Starting on Bobbi 10/26/23 at 0351, For 7 days, Based on patient request - if ordered for moderate or severe pain, provider allows for administration of a medication prescribed for a lower pain scale. If given for pain, use the following pain scale: Mild Pain = Pain Score of 1-3, CPOT 1-2 Moderate Pain = Pain Score of 4-6, CPOT 3-4 Severe Pain = Pain Score of 7-10, CPOT 5-8 Given 10/26/2023 9:29 AM EDT 0.25 mg HYDROmorphone (DILAUDID) injection 0.25 mg 0.25 mg, Intravenous, Every 2 Hours PRN, Severe Pain, Starting on Mon10/26/23 at 1314, For 158 hours, Based on patient request - if ordered for moderate or severe pain, provider allows for administration of a medication prescribed for a lower pain scale. If given for pain, use the following pain scale: Mild Pain = Pain Score of 1-3, CPOT 1-2 Moderate Pain = Pain Score of 4-6, CPOT 3-4 Severe Pain = Pain Score of 7-10, CPOT 5-8 Given 10/27/2023 10:11 AM EDT 0.25 mg Given 10/27/2023 8:21 AM EDT 0.25 mg Given 10/26/2023 9:43 PM EDT 0.25 mg HYDROmorphone (DILAUDID) injection 0.5 mg 0.5 mg, Intravenous, Once, On Bobbi 10/26/23 at 0244, For 1 dose, Based on patient request - if ordered for moderate or severe pain, provider allows for administration of a medication prescribed for a lower pain scale. If given for pain, use the following pain scale: Mild Pain = Pain Score of 1-3, CPOT 1-2 Moderate Pain = Pain Score of 4-6, CPOT 3-4 Severe Pain = Pain Score of 7-10, CPOT 5-8 Given 10/26/2023 2:41 AM EDT 0.5 mg HYDROmorphone (DILAUDID) injection 0.5 mg 0.5 mg, Intravenous, Every 2 Hours PRN, Severe Pain, Starting on Mon10/27/23 at 1316, For 134 hours, Based on patient request - if ordered for moderate or severe pain, provider allows for administration of a medication prescribed for a lower pain scale. If given for pain, use the following pain scale: Mild Pain = Pain Score of 1-3, CPOT 1-2 Moderate Pain = Pain Score of 4-6, CPOT 3-4 Severe Pain = Pain Score of 7-10, CPOT 5-8 Given 10/29/2023 10:25 AM EDT 0.5 mg Given 10/29/2023 6:51 AM EDT 0.5 mg Given 10/29/2023 4:55 AM EDT 0.5 mg HYDROmorphone (DILAUDID) injection 0.5 mg 0.5 mg, Intravenous, Every 10 Minutes PRN, Severe Pain, Starting on Mon10/27/23 at 1632, For 4 doses, Maximum total dose of hydromorphone is 2 mg. If given for pain, use the following pain scale: Mild Pain = Pain Score of 1-3, CPOT 1-2 Moderate Pain = Pain Score of 4-6, CPOT 3-4 Severe Pain = Pain Score of 7-10, CPOT 5-8 Given 10/27/2023 4:55 PM EDT 0.5 mg HYDROmorphone (DILAUDID) injection 0.5 mg 0.5 mg, Intravenous, Every 4 Hours PRN, Severe Pain, Starting on Mon10/29/23 at 1301, Based on patient request - if ordered for moderate or severe pain, provider allows for administration of a medication prescribed for a lower pain scale. If given for pain, use the following pain scale: Mild Pain = Pain Score of 1-3, CPOT 1-2 Moderate Pain = Pain Score of 4-6, CPOT 3-4 Severe Pain = Pain Score of 7-10, CPOT 5-8 Given 10/31/2023 10:35 AM EDT 0.5 mg Given 10/31/2023 6:03 AM EDT 0.5 mg Given 10/31/2023 12:38 AM EDT 0.5 mg Insulin Lispro (humaLOG) injection 2-7 Units 2-7 Units, Subcutaneous, 4 Times Daily Before Meals & Nightly, First dose on Mon10/26/23 at 0730, Correction Insulin - Low Dose - Total Insulin Dose Less Than 40 units/day (Lean, Elderly or Renal Patients) Blood Glucose 150-199 mg/dL - 2 units Blood Glucose 200-249 mg/dL - 3 units Blood Glucose 250-299 mg/dL - 4 units Blood Glucose 300-349 mg/dL - 5 units Blood Glucose 350-400 mg/dL - 6 units Blood Glucose Greater Than 400 mg/dL - 7 units & Call Provider {BKC} Caution: Look alike/sound alike drug alert{BKC} Given 11/01/2023 10:23 PM EDT 3 Units Left Upper Abdomen Given 11/01/2023 6:54 PM EDT 3 Units Le ft Lower Abdomen Given 10/31/2023 5:11 PM EDT 4 Units Ri ght Upper Abdomen ipratropium-albuterol (DUO-NEB) nebulizer solution 3 mL 3 mL, Nebulization, 4 Times Daily - RT, First dose on Mon11/01/23 at 1230, Include Respiratory Treatment Education Given 11/02/2023 4:57 PM EDT 3 mL Given 11/02/2023 7:40 AM EDT 3 mL Given 11/01/2023 8:18 PM EDT 3 mL lidocaine (XYLOCAINE) 1 % injection 10 mL 10 mL, Infiltration, Once, On 10/30/23 at 1700, For 1 dose Given 10/30/2023 4:12 PM EDT 10 mL lidocaine PF 1% (XYLOCAINE) 1 % injection - ADS Override Pull Starting on Mon11/01/23 at 1210, For 1 dose, Created by cabinet override Given 11/01/2023 1:06 PM EDT 2 mL Morphine sulfate (PF) injection 4 mg 4 mg, Intravenous, Once, On Bobbi 10/26/23 at 0103, For 1 dose, Based on patient request - if ordered for moderate or severe pain, provider allows for administration of a medication prescribed for a lower pain scale. {MICHELE} Caution: Look alike/sound alike drug alert If given for pain, use the following pain scale: Mild Pain = Pain Score of 1-3, CPOT 1-2 Moderate Pain = Pain Score of 4-6, CPOT 3-4 Severe Pain = Pain Score of 7-10, CPOT 5-8 Given 10/26/2023 1:17 AM EDT 4 mg mycophenolate (CELLCEPT) capsule 250 mg 250 mg, Oral, Every 12 Hours Scheduled, First dose on Mon10/26/23 at 1400, Take on an empty stomach Group 1 (Yellow) Hazardous Drug - See Handling Guide Given 11/02/2023 9:46 AM EDT 250 mg Given 11/01/2023 10:21 PM EDT 250 mg Given 11/01/2023 8:54 AM EDT 250 mg naloxone (NARCAN) injection 0.4 mg 0.4 mg, Intravenous, As Needed, Opioid Reversal, Respiratory Depression, Starting on Mon10/26/23 at 0351 NIFEdipine XL (PROCARDIA XL) 24 hr tablet 90 mg 90 mg, Oral, 2 Times Daily, First dose on Mon10/26/23 at 0900, Caution: Look alike/sound alike drug alert. Avoid grapefruit juice. Swallow whole. Do not crush, split or chew. Given 11/02/2023 9:45 AM EDT 90 mg Given 11/01/2023 10:22 PM EDT 90 mg Given 11/01/2023 8:48 AM EDT 90 mg ondansetron (ZOFRAN) injection 4 mg 4 mg, Intravenous, Once, On Bobbi 10/26/23 at 0103, For 1 dose, If multiple N/V medications ordered, use in the following order: Ondansetron, Prochlorperazine, Promethazine. Use PO unless patient refuses or patient unable to swallow. Given 10/26/2023 1:17 AM EDT 4 mg ondansetron (ZOFRAN) injection 4 mg 4 mg, Intravenous, Every 6 Hours PRN, Nausea, Vomiting, Starting on Bobbi 10/26/23 at 1313, If multiple N/V medications ordered, use in the following order: Ondansetron, Prochlorperazine, Promethazine. Use PO unless patient refuses or patient unable to swallow. Given 11/01/2023 1:00 PM EDT 4 mg Given 11/01/2023 9:41 AM EDT 4 mg Given 10/31/2023 7:05 PM EDT 4 mg oxyCODONE-acetaminophen (PERCOCET) 5-325 MG per tablet 1 tablet 1 tablet, Oral, Every 6 Hours PRN, Moderate Pain, Starting on Bobbi 10/26/23 at 1314, For 7 days, Based on patient request - if ordered for moderate or severe pain, provider allows for administration of a medication prescribed for a lower pain scale. [MICHELE] Do not exceed 4 grams of acetaminophen in a 24 hr period. Max dose of 2gm for AST/ALT greater than 120 units/L If given for pain, use the following pain scale: Mild Pain = Pain Score of 1-3, CPOT 1-2 Moderate Pain = Pain Score of 4-6, CPOT 3-4 Severe Pain = Pain Score of 7-10, CPOT 5-8 Given 10/29/2023 2:11 AM EDT 1 tablet Given 10/28/2023 8:28 PM EDT 1 tablet Given 10/28/2023 1:29 PM EDT 1 tablet oxyCODONE-acetaminophen (PERCOCET) 5-325 MG per tablet 1 tablet 1 tablet, Oral, Every 4 Hours PRN, Moderate Pain, Starting on [place] 10/29/23 at 0735, Based on patient request - if ordered for moderate or severe pain, provider allows for administration of a medication prescribed for a lower pain scale. [MICHELE] Do not exceed 4 grams of acetaminophen in a 24 hr period. Max dose of 2gm for AST/ALT greater than 120 units/L If given for pain, use the following pain scale: Mild Pain = Pain Score of 1-3, CPOT 1-2 Moderate Pain = Pain Score of 4-6, CPOT 3-4 Severe Pain = Pain Score of 7-10, CPOT 5-8 Given 11/01/2023 10:23 PM EDT 1 tablet Given 11/01/2023 9:41 AM EDT 1 tablet Given 11/01/2023 3:20 AM EDT 1 tablet pantoprazole (PROTONIX) EC tablet 40 mg 40 mg, Oral, Every Rn Case Mgr, First dose on Bobbi 10/26/23 at 0642, Do not crush or chew the capsules or tablets. The drug may not work as designed if the capsule or tablet is crushed or chewed. Swallow whole. Swallow whole; do not crush, split, or chew. Given 11/02/2023 6:05 AM EDT 40 mg Given 11/01/2023 6:07 AM EDT 40 mg Given 10/31/2023 6:03 AM EDT 40 mg piperacillin-tazobactam (ZOSYN) 4.5 g IVPB in 100 mL NS MBP (CD) 4.5 g, Intravenous, Administer over 30 Minutes, Once, On Bobbi 10/26/23 at 0412, For 1 dose New Bag 10/26/2023 5:50 AM EDT 4.5 g piperacillin-tazobactam (ZOSYN) 4.5 g IVPB in 100 mL NS MBP (CD) 4.5 g, Intravenous, Administer over 4 Hours, Every 12 Hours, First dose on Bobbi 10/26/23 at 1600, For 9 doses, Indications: Skin and Soft Tissue InfectionIndications:Skin and Soft Tissue Infection New Bag 10/30/2023 5:00 AM EDT 4.5 g New Bag 10/29/2023 5:14 PM EDT 4.5 g New Bag 10/29/2023 3:06 AM EDT 4.5 g polyethylene glycol (MIRALAX) packet 17 g 17 g, Oral, Daily PRN, Constipation, Use if senna-docusate is ineffective, Starting on Bobbi 10/26/23 at 0626, Use if no bowel movement after 12 hours. Mix in 6-8 ounces of water. Use 4-8 ounces of water, tea, or juice for each 17 gram dose. prochlorperazine (COMPAZINE) injection 10 mg 10 mg, Intravenous, Once, On Bobbi 10/26/23 at 0244, For 1 dose, If multiple N/V medications ordered, use in the following order: Ondansetron, Prochlorperazine, Promethazine. Use PO unless patient refuses or patient unable to swallow. Given 10/26/2023 2:41 AM EDT 10 mg prochlorperazine (COMPAZINE) injection 5 mg 5 mg, Intravenous, Every 6 Hours PRN, Nausea, Vomiting, Starting on 10/31/23 at 1120, If multiple N/V medications ordered, use in the following order: Ondansetron, Prochlorperazine, Promethazine. Use PO unless patient refuses or patient unable to swallow. Given 11/01/2023 10:33 PM EDT 5 mg Given 11/01/2023 9:46 AM EDT 5 mg Given 10/31/2023 1:09 PM EDT 5 mg prochlorperazine (COMPAZINE) tablet 5 mg 5 mg, Oral, Every 6 Hours PRN, Nausea, Vomiting, Starting on e 10/31/23 at 1120, If multiple N/V medications ordered, use in the following order: Ondansetron, Prochlorperazine, Promethazine. Use PO unless patient refuses or patient unable to swallow. promethazine (PHENERGAN) suppository 12.5 mg 12.5 mg, Rectal, Every 6 Hours PRN, Nausea, Vomiting, Starting on Obbbi 10/26/23 at 0634, If multiple N/V medications ordered, use in the following order: Ondansetron, Prochlorperazine, Promethazine. Use PO unless patient refuses or patient unable to swallow. promethazine (PHENERGAN) tablet 12.5 mg 12.5 mg, Oral, Every 6 Hours PRN, Nausea, Vomiting, Starting on Mon10/26/23 at 0634, If multiple N/V medications ordered, use in the following order: Ondansetron, Prochlorperazine, Promethazine. Use PO unless patient refuses or patient unable to swallow. {BKC} Given 11/02/2023 1:42 AM EDT 12.5 mg Given 10/31/2023 10:35 AM EDT 12.5 mg Given 10/31/2023 12:10 AM EDT 12.5 mg sennosides-docusate (PERICOLACE) 8.6-50 MG per tablet 2 tablet 2 tablet, Oral, 2 Times Daily PRN, Constipation, Starting on Mon10/26/23 at 0626, Start bowel management regimen if patient has not had a bowel movement after 12 hours. simethicone (MYLICON) chewable tablet 80 mg 80 mg, Oral, 4 Times Daily PRN, Flatulence, Starting on Mon10/31/23 at 1910 Given 10/31/2023 7:13 PM EDT 80 mg sodium chloride 0.9 % bolus 250 mL 250 mL, Intravenous, at 250 mL/hr, Administer over 1 Hours, Once, On Mon10/31/23 at 2045, For 1 dose New Bag 10/31/2023 8:01 PM EDT 250 mL 250 mL/hr sodium chloride 0.9 % flush 10 mL 10 mL, Intravenous, As Needed, Line Care, Starting on Mon10/25/23 at 2240 sodium chloride 0.9 % flush 10 mL 10 mL, Intravenous, Every 12 Hours Scheduled, First dose on Mon10/26/23 at 0900 Given 11/02/2023 9:46 AM EDT 10 mL Given 11/01/2023 10:23 PM EDT 10 mL Given 10/31/2023 10:10 PM EDT 10 mL sodium zirconium cyclosilicate (LOKELMA) pack 10 g 10 g, Oral, Once, On Mon10/26/23 at 0618, For 1 dose, Empty contents of packet into drinking glass and mix with 3 or more tablespoons of water. Stir well and give to patient to drink immediately. If powder remains add additional water and stir. Given 10/26/2023 6:40 AM EDT 10 g sodium zirconium cyclosilicate (LOKELMA) packet 10 g 10 g, Oral, 2 Times Daily, First dose on Mon11/02/23 at 1300, For 2 doses, Empty entire contents of the packet(s) into a glass with at least 3 tablespoons (45 mL) of water. Stir well and drink immediately; if powder remains in the glass, add water, stir and drink immediately; repeat until no powder remains. Administer other oral medications at least 2 hours before or 2 hours after dose. vancomycin 2750 mg/500 mL 0.9% NS IVPB ([facility]) 2,750 mg (rounded from 2,720 mg = 20 mg/kg ? 136 kg), Intravenous, Administer over 165 Minutes, Once, On Mon10/26/23 at 0321, For 1 dose, Indications: Skin and Soft Tissue InfectionIndications:Skin and Soft Tissue Infection Currently Infusing 10/26/2023 8:45 AM EDT New Bag 10/26/2023 6:39 AM EDT 2,750 mg vancomycin IVPB 2000 mg in 0.9% Sodium Chloride 500 mL 2,000 mg (rounded from 2,040 mg = 15 mg/kg ? 136 kg), Intravenous, at 250 mL/hr, Administer over 120 Minutes, Once, On Mon10/27/23 at 2100, For 1 dose, Indications: Skin and Soft Tissue InfectionIndications:Skin and Soft Tissue Infection New Bag 10/27/2023 9:00 PM EDT 2,000 mg 250 mL/hr documented in this encounter Active and Recently Administered Medications Times are shown in EDT. Scheduled Medication Order 10/31/2023 11/01/2023 11/02/2023 *Patient Supplied* entecavir (BARACLUDE) tablet 0.5 mg 0.5 mg, Oral, Weekly, First dose (after last modification) on Mon11/02/23 at 0900, Group 1 (Yellow) Hazardous Drug - See Handling Guide, Can the patient use their own supply during their hospitalization? Yes, Name of Medication: entecavir 1025 (Not Given - Provider: Lakeshia Nowak RN - Reason: Medication not available) aspirin chewable tablet 81 mg 81 mg, Oral, Daily, First dose on Mon10/26/23 at 0900, Herbal/drug interaction: Avoid use with ginkgo biloba. Based on patient request - if ordered for moderate or severe pain, provider allows for administration of a medication prescribed for a lower pain scale. Do not exceed 4 grams of aspirin in a 24 hr period. If given for pain, use the following pain scale: Mild Pain = Pain Score of 1-3, CPOT 1-2 Moderate Pain = Pain Score of 4-6, CPOT 3-4 Severe Pain = Pain Score of 7-10, CPOT 5-8 0832 (Given - Provider: Kody Boyer RN) 0848 (Given - Provider: Kody Boyer RN) 0946 (Given - Provider: Lakeshia Nowak, JANA) calcitriol (ROCALTROL) capsule 0.25 mcg 0.25 mcg, Oral, Daily, First dose on Bobbi 10/26/23 at 0900 0834 (Given - Provider: Kody Boyer RN) 0855 (Given - Provider: Kody Boyer RN) 0946 (Given - Provider: Lakeshia Nowak, JANA) carBAMazepine (TEGretol) tablet 200 mg 200 mg, Oral, Nightly, First dose on Bobbi 10/26/23 at 2100, Group 1 (Yellow) Hazardous Drug - See Handling Guide 2207 (Given - Provider: Mukul Styles RN) 2221 (Given - Provider: Jovanny Lopez RN) carvedilol (COREG) tablet 25 mg 25 mg, Oral, 2 Times Daily With Meals, First dose on Bobbi 10/26/23 at 0800, Hold for SBP less than 100, DBP less than 60, or heart rate less than 50. If a dose is held, please contact the provider. Give with food. 0832 (Given - Provider: Kody Boyer RN)1711 (Given - Provider: Kody Boyer RN) 0849 (Not Given - Provider: Kody Boyer RN - Reason: Patient/family refused)1843 (Given - Provider: Kody Boyer RN) 0945 (Given - Provider: Lakeshia Nowak RN)1805 (Not Given - Provider: Lakeshia Nowak RN - Reason: Patient/family refused) cefTRIAXone (ROCEPHIN) 2,000 mg in sodium chloride 0.9 % 100 mL MBP 2,000 mg, Intravenous, at 200 mL/hr, Administer over 30 Minutes, Every 24 Hours, First dose on Mon10/30/23 at 1700, For 14 days, LR should be paused and flushing of the line with NS is recommended prior to and after completion of ceftriaxone infusion due to incompatibility. Do not co-adminster with calcium-containing solutions. Caution: Look alike/sound alike drug alert, Indications: Bacteremia 1706 (New Bag - Provider: Kody Boyer RN) 1844 (New Bag - Provider: Kody Boyer RN) 1605 (New Bag - Provider: Lakeshia Nowak, JANA) cinacalcet (SENSIPAR) tablet 90 mg 90 mg, Oral, Nightly, First dose on Mon10/26/23 at 2100, Do not crush or chew the capsules or tablets. The drug may not work as designed if the capsule or tablet is crushed or chewed. Swallow whole. Swallow whole. Do not crush, break, or chew tablet. Take with food. 2206 (Given - Provider: Mukul Styles RN) 222 (Given - Provider: Jovanny Lopez, JANA) cycloSPORINE modified (NEORAL) capsule 100 mg 100 mg, Oral, 2 Times Daily, First dose (after last modification) on Mon10/26/23 at 2100, Group 1 (Yellow) Hazardous Drug - See Handling Guide 0834 (Given - Provider: Kody Boyer RN)2212 (Given - Provider: Mukul Styles RN) 0854 (Given - Provider: Kody Boyer RN)2223 (Given - Provider: Jovanny Lopez RN) 0945 (Given - Provider: Lakeshia Nowak, JANA) fenofibrate (TRICOR) tablet 145 mg 145 mg, Oral, Daily, First dose on Mon10/26/23 at 0900, Take with food., Reason for continuation of original order: Elevated triglycerides and pancreatitis 0834 (Given - Provider: Kody Boyer RN) 0848 (Given - Provider: Kody Boyer RN) 0945 (Given - Provider: Lakeshia Nowak, JANA) folic acid (FOLVITE) tablet 1,000 mcg 1,000 mcg, Oral, Daily, First dose on Bobbi 10/26/23 at 0900 0832 (Given - Provider: Kody Boyer RN) 0848 (Given - Provider: Kody Boyer RN) 0945 (Given - Provider: Lakeshia Nowak, JANA) gabapentin (NEURONTIN) capsule 300 mg 300 mg, Oral, Nightly, First dose on Bobbi 10/26/23 at 2100, {MICHELE} 2205 (Given - Provider: Mukul Styles RN) 2222 (Given - Provider: Jovanny Lopez, JANA) guaiFENesin (MUCINEX) 12 hr tablet 1,200 mg 1,200 mg, Oral, Every 12 Hours Scheduled, First dose on Mon10/29/23 at 1015, Caution: Look alike/sound alike drug alert Do not crush, split, or chew. 0832 (Given - Provider: Kody Boyer RN)2206 (Given - Provider: Mukul Styles RN) 0848 (Given - Provider: Kody Boyer RN)2222 (Given - Provider: Jovanny Lopez RN) 0946 (Given - Provider: Lakeshia Nowak, JANA) hydrALAZINE (APRESOLINE) tablet 100 mg 100 mg, Oral, 3 Times Daily, First dose on Mon10/26/23 at 0715, Hold for SBP less than 100, DBP less than 60 Caution: Look alike/sound alike drug alert 0603 (Given - Provider: Mukul Styles RN)1304 (Given - Provider: Kody Boyer RN)2154 (Not Given - Provider: Mukul Styles RN - Reason: Contraindicated) 0552 (Not Given - Provider: Mukul Styles RN - Reason: Patient/family refused)1842 (Given - Provider: Kody Boyer RN)2221 (Not Given - Provider: Jovanny Lopez RN - Reason: Patient/family refused) 0605 (Given - Provider: Jovanny Lopez RN)1559 (Not Given - Provider: Lakeshia Nowak RN - Reason: Patient not available) Insulin Lispro (humaLOG) injection 2-7 Units 2-7 Units, Subcutaneous, 4 Times Daily Before Meals & Nightly, First dose on Bobbi 10/26/23 at 0730, Correction Insulin - Low Dose - Total Insulin Dose Less Than 40 units/day (Lean, Elderly or Renal Patients) Blood Glucose 150-199 mg/dL - 2 units Blood Glucose 200-249 mg/dL - 3 units Blood Glucose 250-299 mg/dL - 4 units Blood Glucose 300-349 mg/dL - 5 units Blood Glucose 350-400 mg/dL - 6 units Blood Glucose Greater Than 400 mg/dL - 7 units & Call Provider {BKC} Caution: Look alike/sound alike drug alert{BKC} 0833 (Not Given - Provider: Kody Boyer RN - Reason: Order parameters not met - Comment: [phone] (Not Given - Provider: Kody Boyer RN - Reason: Order parameters not met - Comment: [phone] (Given - Provider: Kody Boyer RN - Comment: [phone] (Not Given - Provider: Mukul Styles RN - Reason: Patient/family refused) [phone] (Not Given - Provider: Kody Boyer RN - Reason: Order parameters not met - Comment: [phone] (Not Given - Provider: Kody Boyer RN - Reason: Patient/family refused - Comment: [phone] (Given - Provider: Kody Boyer RN)2223 (Given - Provider: Jovanny Lopez RN) 0755 (Not Given - Provider: Lakeshia Nowak RN - Reason: Order parameters not met)1248 (Not Given - Provider: Lakeshia Nowak RN - Reason: Patient not available)1659 (Not Given - Provider: Lakeshia Nowak RN - Reason: Order parameters not met) ipratropium-albuterol (DUO-NEB) nebulizer solution 3 mL 3 mL, Nebulization, 4 Times Daily - RT, First dose on Mon11/01/23 at 1230, Include Respiratory Treatment Education 1407 (Given - Provider: Gabino Schwartz, COLLEGE TUTOR)1741 (Not Given - Provider: Gabino Schwartz RRT - Reason: Other)2017 (Given - Provider: Gena Greenfield, SENIOR TECHNICAL WRITER) 0740 (Given - Provider: Bayron Fregoso, COLLEGE TUTOR)1234 (Not Given - Provider: Bayron Fregoso, COLLEGE TUTOR - Reason: Patient not available - Comment: OFF FLOOR FOR DIALYSIS)1657 (Given - Provider: Bayron Fregoso, COLLEGE TUTOR) LORazepam (ATIVAN) tablet 2 mg 2 mg, Oral, Once, On Bobbi 11/02/23 at 1815, For 1 dose, {MICHELE} Caution: Look alike/sound alike drug alert 1805 (Not Given - Provider: Lakeshia Nowak RN - Reason: Patient/family refused) mycophenolate (CELLCEPT) capsule 250 mg 250 mg, Oral, Every 12 Hours Scheduled, First dose on Bobbi 10/26/23 at 1400, Take on an empty stomach Group 1 (Yellow) Hazardous Drug - See Handling Guide 0833 (Given - Provider: Kody Boyer RN)2206 (Given - Provider: Mukul Styles RN) 0854 (Given - Provider: Kody Boyer RN)2221 (Given - Provider: Jovanny Lopez, JANA) 0946 (Given - Provider: Lakeshia Nowak, JANA) NIFEdipine XL (PROCARDIA XL) 24 hr tablet 90 mg 90 mg, Oral, 2 Times Daily, First dose on Bobbi 10/26/23 at 0900, Caution: Look alike/sound alike drug alert. Avoid grapefruit juice. Swallow whole. Do not crush, split or chew. 0832 (Given - Provider: Kody Boyer RN)2045 (Not Given - Provider: Mukul Styles RN - Reason: Contraindicated) 0848 (Given - Provider: Kody Boyer RN)2222 (Given - Provider: Jovanny Lopez, JANA) 0945 (Given - Provider: Lakeshia Nowak, JANA) pantoprazole (PROTONIX) EC tablet 40 mg 40 mg, Oral, Every Rn Case Mgr, First dose on Bobbi 10/26/23 at 0642, Do not crush or chew the capsules or tablets. The drug may not work as designed if the capsule or tablet is crushed or chewed. Swallow whole. Swallow whole; do not crush, split, or chew. 0603 (Given - Provider: Mukul Styles RN) 0607 (Given - Provider: Mukul Styles RN) 0605 (Given - Provider: Jovanny Lopez, JANA) sodium chloride 0.9 % bolus 250 mL (COMPLETED) 250 mL, Intravenous, at 250 mL/hr, Administer over 1 Hours, Once, On Mon10/31/23 at 2045, For 1 dose 2000 (New Bag - Provider: Mukul Styles RN) sodium chloride 0.9 % flush 10 mL 10 mL, Intravenous, Every 12 Hours Scheduled, First dose on Mon10/26/23 at 0900 0834 (Given - Provider: Kody Boyer, JANA)221 (Given - Provider: Mukul Styles RN) 1937 (Canceled Entry - Provider: Kody Boyer RN)2223 (Given - Provider: Jovanny Lopez, JANA) 0946 (Given - Provider: Lakeshia Nowak, JANA) sodium zirconium cyclosilicate (LOKELMA) packet 10 g 10 g, Oral, 2 Times Daily, First dose on Mon11/02/23 at 1300, For 2 doses, Empty entire contents of the packet(s) into a glass with at least 3 tablespoons (45 mL) of water. Stir well and drink immediately; if powder remains in the glass, add water, stir and drink immediately; repeat until no powder remains. Administer other oral medications at least 2 hours before or 2 hours after dose. 1559 (Not Given - Provider: Lakeshia Nowak RN - Reason: Other) PRN Medication Order 10/31/2023 11/01/2023 11/02/2023 acetaminophen (TYLENOL) tablet 650 mg 650 mg, Oral, Every 4 Hours PRN, Mild Pain, Starting on Mon10/26/23 at 0626, If given for fever, use fever parameter: fever greater than 100.4 ??F Based on patient request - if ordered for moderate or severe pain, provider allows for administration of a medication prescribed for a lower pain scale. Do not exceed 4 grams of acetaminophen in a 24 hr period. Max dose of 2gm for AST/ALT greater than 120 units/L. If given for pain, use the following pain scale: Mild Pain = Pain Score of 1-3, CPOT 1-2 Moderate Pain = Pain Score of 4-6, CPOT 3-4 Severe Pain = Pain Score of 7-10, CPOT 5-8 albuterol (PROVENTIL) nebulizer solution 0.083% 2.5 mg/3mL 2.5 mg, Nebulization, Every 6 Hours PRN, Shortness of Air, Starting on Mon11/01/23 at 1026, Include Respiratory Treatment Education ALPRAZolam (XANAX) tablet 0.5 mg 0.5 mg, Oral, Daily PRN, Anxiety, Starting on Mon10/26/23 at 1508, {MICHELE} Caution: Look alike/sound alike drug alert. Avoid grapefruit juice 2205 (Given - Provider: Mukul Styles RN) 184 (Given - Provider: Kody Boyer RN) 014 (Given - Provider: Jovanny Lopez RN) bisacodyl (DULCOLAX) EC tablet 5 mg(Linked Group 1) 5 mg, Oral, Daily PRN, Constipation, Use if polyethylene glycol is ineffective, Starting on Mon10/26/23 at 0626, Use if no bowel movement after 12 hours. Swallow whole. Do not crush, split, or chew tablet. bisacodyl (DULCOLAX) suppository 10 mg(Linked Group 1) 10 mg, Rectal, Daily PRN, Constipation, Use if bisacodyl oral is ineffective, Starting on Mon10/26/23 at 0626, Use if no bowel movement after 12 hours. Hold for diarrhea dextrose (D50W) (25 g/50 mL) IV injection 25 g 25 g, Intravenous, Every 15 Minutes PRN, Low Blood Sugar, Blood Sugar Less Than 70, Starting on Bobbi 10/26/23 at 0639, Blood sugar less than 70; patient has IV access - Unresponsive, NPO or Unable To Safely Swallow dextrose (GLUTOSE) oral gel 15 g 15 g, Oral, Every 15 Minutes PRN, Low Blood Sugar, Blood sugar less than 70, Starting on Bobbi 10/26/23 at 0639, BS<70, Patient Alert, Is not NPO, Can safely swallow. diphenhydrAMINE (BENADRYL) capsule 25 mg 25 mg, Oral, Every 6 Hours PRN, Allergies, Starting on 10/28/23 at 1845, Caution: Look alike/sound alike drug alert. This med may be ordered in other forms and routes. Before giving verify the last time the drug was given by any route/form. glucagon (GLUCAGEN) injection 1 mg 1 mg, Intramuscular, Every 15 Minutes PRN, Low Blood Sugar, Blood Glucose Less Than 70, Starting on Bobbi 10/26/23 at 0639, Blood Glucose Less Than 70 - Patient Without IV Access - Unresponsive, NPO or Unable To Safely Swallow Reconstitute powder for injection by adding 1 mL of computer operations analyst-supplied sterile diluent or sterile water for injection to a vial containing 1 mg of the drug, to provide solutions containing 1 mg/mL. Shake vial gently to dissolve. heparin (porcine) injection 2,000 Units 2,000 Units, Intracatheter, As Needed, hd, Starting on Bobbi 10/26/23 at 1032, For 10 days, Indications: hd 1710 (Given - Provider: Adam Wood RN) 1530 (Given - Provider: Margarita Menendez RN) HYDROmorphone (DILAUDID) injection 0.5 mg (CANCELED) 0.5 mg, Intravenous, Every 4 Hours PRN, Severe Pain, Starting on 10/29/23 at 1301, Based on patient request - if ordered for moderate or severe pain, provider allows for administration of a medication prescribed for a lower pain scale. If given for pain, use the following pain scale: Mild Pain = Pain Score of 1-3, CPOT 1-2 Moderate Pain = Pain Score of 4-6, CPOT 3-4 Severe Pain = Pain Score of 7-10, CPOT 5-8 0038 (Given - Provider: Mukul Styles RN)0603 (Given - Provider: Mukul Styles RN)1035 (Given - Provider: Kody Boyer RN) melatonin tablet 5 mg 5 mg, Oral, Nightly PRN, Sleep, Starting on Bobbi 10/26/23 at 0626 naloxone (NARCAN) injection 0.4 mg 0.4 mg, Intravenous, As Needed, Opioid Reversal, Respiratory Depression, Starting on Bobbi 10/26/23 at 0351 ondansetron (ZOFRAN) injection 4 mg 4 mg, Intravenous, Every 6 Hours PRN, Nausea, Vomiting, Starting on Bobbi 10/26/23 at 1313, If multiple N/V medications ordered, use in the following order: Ondansetron, Prochlorperazine, Promethazine. Use PO unless patient refuses or patient unable to swallow. 0113 (Given - Provider: Mukul Styles RN)0827 (Given - Provider: Kody Boyer RN)1905 (Given - Provider: Mukul Stlyes RN) 0941 (Given - Provider: Kody Boyer RN)1300 (Given - Provider: Adam Wood RN) oxyCODONE-acetaminophen (PERCOCET) 5-325 MG per tablet 1 tablet 1 tablet, Oral, Every 4 Hours PRN, Moderate Pain, Starting on Mon10/29/23 at 0735, Based on patient request - if ordered for moderate or severe pain, provider allows for administration of a medication prescribed for a lower pain scale. [MICHELE] Do not exceed 4 grams of acetaminophen in a 24 hr period. Max dose of 2gm for AST/ALT greater than 120 units/L If given for pain, use the following pain scale: Mild Pain = Pain Score of 1-3, CPOT 1-2 Moderate Pain = Pain Score of 4-6, CPOT 3-4 Severe Pain = Pain Score of 7-10, CPOT 5-8 0827 (Given - Provider: Kody Boyer RN)1304 (Not Given - Provider: Kody Boyer RN - Reason: Patient/family refused) 0320 (Given - Provider: Mukul Styles RN)0941 (Given - Provider: Kody Boyer RN)2223 (Given - Provider: Jovanny Lopez RN) polyethylene glycol (MIRALAX) packet 17 g(Linked Group 1) 17 g, Oral, Daily PRN, Constipation, Use if senna-docusate is ineffective, Starting on Bobbi 10/26/23 at 0626, Use if no bowel movement after 12 hours. Mix in 6-8 ounces of water. Use 4-8 ounces of water, tea, or juice for each 17 gram dose. prochlorperazine (COMPAZINE) injection 5 mg(Linked Group 2) 5 mg, Intravenous, Every 6 Hours PRN, Nausea, Vomiting, Starting on Mon10/31/23 at 1120, If multiple N/V medications ordered, use in the following order: Ondansetron, Prochlorperazine, Promethazine. Use PO unless patient refuses or patient unable to swallow. 1309 (Given - Provider: Kody Boyer RN) 0946 (Given - Provider: Kody Boyer RN)2222 (Not Given: See Alt - Provider: Jovanny Lopez RN)2228 (Not Given: See Alt - Provider: Jovanny Lopez RN)2233 (Given - Provider: Jovanny Lopez RN) prochlorperazine (COMPAZINE) tablet 5 mg(Linked Group 2) 5 mg, Oral, Every 6 Hours PRN, Nausea, Vomiting, Starting on Mon10/31/23 at 1120, If multiple N/V medications ordered, use in the following order: Ondansetron, Prochlorperazine, Promethazine. Use PO unless patient refuses or patient unable to swallow. 1309 (Not Given: See Alt - Provider: Kody Boyer RN) 0946 (Not Given: See Alt - Provider: Kody Boyer RN)2222 (Not Given - Provider: Jovanny Lopez RN - Reason: Patient/family refused)2228 (Canceled Entry - Provider: Jovanny Lopez RN)2233 (Not Given: See Alt - Provider: Jovanny Lopez RN) promethazine (PHENERGAN) suppository 12.5 mg(Linked Group 3) 12.5 mg, Rectal, Every 6 Hours PRN, Nausea, Vomiting, Starting on Mon10/26/23 at 0634, If multiple N/V medications ordered, use in the following order: Ondansetron, Prochlorperazine, Promethazine. Use PO unless patient refuses or patient unable to swallow. 0010 (Not Given: See Alt - Provider: Mukul Styles RN)1035 (Not Given: See Alt - Provider: Kody Boyer RN) 0142 (Not Given: See Alt - Provider: Jovanny Lopez RN) promethazine (PHENERGAN) tablet 12.5 mg(Linked Group 3) 12.5 mg, Oral, Every 6 Hours PRN, Nausea, Vomiting, Starting on Mon10/26/23 at 0634, If multiple N/V medications ordered, use in the following order: Ondansetron, Prochlorperazine, Promethazine. Use PO unless patient refuses or patient unable to swallow. {BK} 0010 (Given - Provider: Mukul Styles RN)1035 (Given - Provider: Kody Boyer RN) 0142 (Given - Provider: Jovanny Lopez RN) sennosides-docusate (PERICOLACE) 8.6-50 MG per tablet 2 tablet(Linked Group 1) 2 tablet, Oral, 2 Times Daily PRN, Constipation, Starting on Mon10/26/23 at 0626, Start bowel management regimen if patient has not had a bowel movement after 12 hours. simethicone (MYLICON) chewable tablet 80 mg 80 mg, Oral, 4 Times Daily PRN, Flatulence, Starting on Mon10/31/23 at 1910 1913 (Given - Provider: Kody Boyer RN) sodium chloride 0.9 % flush 10 mL(Linked Group 4) 10 mL, Intravenous, As Needed, Line Care, Starting on Mon10/25/23 at 2240 sodium chloride 0.9 % flush 10 mL 10 mL, Intravenous, As Needed, Line Care, Starting on Mon10/26/23 at 0626 sodium chloride 0.9 % infusion 40 mL 40 mL, Intravenous, at 100 mL/hr, As Needed, Line Care, Starting on Mon10/26/23 at 0626, Following administration of an IV intermittent medication, flush line with 40mL NS at 100mL/hr. No Frequency Medication Order 10/31/2023 11/01/2023 11/02/2023 diphenhydrAMINE (BENADRYL) 50 MG/ML injection - ADS Override Pull (COMPLETED) Starting on Mon11/01/23 at 1705, For 1 dose, Created by cabinet override Caution: Look alike/sound alike drug alert. This med may be ordered in other forms and routes. Before giving verify the last time the drug was given by any route/form. 170 (Given - Provider: Adam Wood RN) heparin (porcine) 1000 UNIT/ML injection - ADS Override Pull (COMPLETED) Starting on Mon11/01/23 at 1210, For 1 dose, Created by cabinet override 1304 (Given - Provider: Dakotah Gordon) lidocaine PF 1% (XYLOCAINE) 1 % injection - ADS Override Pull (COMPLETED) Starting on Mon11/01/23 at 1210, For 1 dose, Created by cabinet override 1306 (Given - Provider: Dakotah Gordon) Linked Groups Order Group 1: sennosides-docusate (PERICOLACE) 8.6-50 MG per tablet 2 tabletJump to med 2 tablet, Oral, 2 Times Daily PRN, Constipation, Starting on Mon10/26/23 at 0626, Start bowel management regimen if patient has not had a bowel movement after 12 hours. And polyethylene glycol (MIRALAX) packet 17 gJump to med 17 g, Oral, Daily PRN, Constipation, Use if senna-docusate is ineffective, Starting on Mon10/26/23 at 0626, Use if no bowel movement after 12 hours. Mix in 6-8 ounces of water. Use 4-8 ounces of water, tea, or juice for each 17 gram dose. And bisacodyl (DULCOLAX) EC tablet 5 mgJump to med 5 mg, Oral, Daily PRN, Constipation, Use if polyethylene glycol is ineffective, Starting on Bobbi 10/26/23 at 0626, Use if no bowel movement after 12 hours. Swallow whole. Do not crush, split, or chew tablet. And bisacodyl (DULCOLAX) suppository 10 mgJump to med 10 mg, Rectal, Daily PRN, Constipation, Use if bisacodyl oral is ineffective, Starting on Bobbi 10/26/23 at 0626, Use if no bowel movement after 12 hours. Hold for diarrhea Group 2: prochlorperazine (COMPAZINE) injection 5 mgJump to med 5 mg, Intravenous, Every 6 Hours PRN, Nausea, Vomiting, Starting on Mon10/31/23 at 1120, If multiple N/V medications ordered, use in the following order: Ondansetron, Prochlorperazine, Promethazine. Use PO unless patient refuses or patient unable to swallow. Or prochlorperazine (COMPAZINE) tablet 5 mgJump to med 5 mg, Oral, Every 6 Hours PRN, Nausea, Vomiting, Starting on 10/31/23 at 1120, If multiple N/V medications ordered, use in the following order: Ondansetron, Prochlorperazine, Promethazine. Use PO unless patient refuses or patient unable to swallow. Group 3: promethazine (PHENERGAN) tablet 12.5 mgJump to med 12.5 mg, Oral, Every 6 Hours PRN, Nausea, Vomiting, Starting on Bobbi 10/26/23 at 0634, If multiple N/V medications ordered, use in the following order: Ondansetron, Prochlorperazine, Promethazine. Use PO unless patient refuses or patient unable to swallow. {BKC} Or promethazine (PHENERGAN) suppository 12.5 mgJump to med 12.5 mg, Rectal, Every 6 Hours PRN, Nausea, Vomiting, Starting on Bobbi 10/26/23 at 0634, If multiple N/V medications ordered, use in the following order: Ondansetron, Prochlorperazine, Promethazine. Use PO unless patient refuses or patient unable to swallow. Group 4: Insert Peripheral IV (CANCELED) Once, On Mon10/25/23 at 2241, For 1 occurrence And sodium chloride 0.9 % flush 10 mLJump to med 10 mL, Intravenous, As Needed, Line Care, Starting on Mon10/25/23 at 2240 documented in this encounter Additional Health Concerns Infection Onset Date Last Indicated Resolved Time COVID (rule out) 10/26/2023 10/26/2023 10/26/2023 6:20 AM EDT documented as of this encounter Care Teams Supplier Specialist Relationship Specialty Start Date End Date Edgar Fournier MD [address] [place] [address] PCP - General Family Medicine 04/27/20 documented as of this encounter
--- OUTSIDE RECORDS SUMMARY | 2024-07-12 12:13 | XMS_ITS | Encounter Summary ---
Author Organization [facility] Address [address] [place] [address] Care Team Providers Care Cancer Program Director Name Role Phone Edgar Fournier MD Primary Care Provider [phone] Reason for Visit * Auth/Cert (Routine) Specialty Diagnoses / Procedures Referred By Declan hines Referred To Contact Diagnoses Arm pain Referral ID Status Reason Start Date Expiration Date Visits Re quested Visits Authorized [id number] 1 1 Encounter Details Date Type Department Care Team (Late st Contact Info) Description 10/27/2023 3:18 PM EDT Anesthesia Event [facility] OR [address] [place] [address] William Mayfield MD [address] [place] [id number] Anesthesia Record Procedure Summary Procedure Name Responsible Anesthesiologist Anesthesia Start Time Anesthesia Stop Time ARTERIOVENOUS FISTULA LIGATION LEFT (Left) William Mayfield MD 10/27/23 1518 10/27/23 1631 Events Date Time Event Comment 10/27/2023 1354 1513 AN Equip Check 1518 An Start The patient was reevaluated immediately before moderate or deep sedation use and before anesthesia induction. 1518 An Start Data 1528 An Induction 1530 An Intubation 1549 an krunal now Incision 1626 An Extubation 1626 an stop data 1631 Handoff to RN The following has been completed: 1. Identification of Patient, duarte family member(s) or patient surrogate 2. Identification of the responsible Practitioner (primary service) 3. Discussion of the pertinent/attainable medical history 4. Discussion of the surgical/procedure course (procedure, reason for surgery, procedure performed) 5. Intraoperative anesthetic management and issue/concerns to include things such as airway, hemodynamics, narcotic, sedation level and paralytic management and intravenous fluids/blood products and urine output during the procedure 6. Expectations/Plans for the early post-procedure period to include things such as anticipated course (anticipatory guidance), complications, need for laboratory or ECG and medication administration 7. Opportunity for questions and acknowledgment of understanding of report from the receiving PACU/ICU team 1631 An Stop Meds Name Total Propofol 10 MG/ML 200 mg lidocaine PF 1% 1 % 50 mg rocuronium 50 MG/5ML 50 mg piperacillin-tazobactam (ZOSYN) 4.5 g IV PB in 100 mL NS MBP (CD) 4.5 g ondansetron 2 mg/mL 4 mg sugammadex (BRIDION) 500 mg/5 mL injecti on 300 mg sodium chloride 0.9 % infusion 300 mL * Agents Name O2 N2O Air Sevoflurane * Blood No blood administrations on file. Lines, Drains, and Airways Type Details Placement Removal Hemodialysis AV Access 04/28/20 1647 by Hemodialysis Cath Double 08/11/23; 1553; Yes; Yes; Chlorhexidine; Yes; Yes; Injectable; Ultrasound guidance; 15.5; 28 cm; 1; Sutured; Tolerated well; X-ray; Tunneled catheter; Right; (external jugular) 08/11/23 1553 by Brandy Feliz RN Wound 10/27/23; 1601; Left ; arm; Incision; N 10/27/23 1601 by Annetta Wright RN Hemodialysis Cath Double Tunneled cathet er; Right; Subclavian; Per order; Yes 08/11/23 1827 by 10/30/23 1611 by Joan Rodriguez RN Peripheral IV Placement Date: 10/26/23; Placement Time: 2140; Catheter Size: 22 G; Orientation: Anterior, Right, Upper; Location: Arm; Insertion Attempts: 1; Removal Date: 10/27/23; Removal Time: 201510/26/232140 by Roberta Wise RN 10/27/232015 by Roberta Wise RN ETT Placement Date: 10/27/23; Placement Time: 154 (created via procedure documentation); Tube Size: 7.5 mm; Blade Size: 4; Location: Oral; Removal Date: 10/27/23; Removal Time: 16210/27/23 1540 by Raul Day, SHANK TURNER 10/27/23 1626 by William Mayfield MD documented in this encounter Social History Tobacco Use Types Packs/Day Years [...] on file documented as of this encounter OR Notes * Anesthesia Postprocedure Evaluation - William Mayfield MD - 10/27/2023 4:32 PM EDT Patient: Aiden Stauffer . Procedure Summary Date: 10/27/23 Room / Location: [facility] Anesthesia Start: 1517 Anesthesia Stop: 1630 Procedure: ARTERIOVENOUS FISTULA LIGATION (Left) Diagnosis: Surgeons: Dontae Gruber MD Provider: William Mayfield MD Anesthesia Type: general ASA Status: 4 Anesthesia Type: general Vitals Vitals Value Taken Time BP 131/87 10/27/23 1631 Temp 99.8 ??F (37.7 ??C) 10/27/23 1631 Pulse 75 10/27/23 1631 Resp SpO2 95 % 10/27/23 1631 Post Anesthesia Care and Evaluation Patient location during evaluation: PACU Patient participation: complete - patient participated Level of consciousness: awake and alert Pain management: adequate Airway patency: patent Anesthetic complications: No anesthetic complications PONV Status: none Cardiovascular status: hemodynamically stable and acceptable Respiratory status: nonlabored ventilation, acceptable and nasal cannula Hydration status: acceptable * Anesthesia Procedure Notes - Raul Day CRNA - 10/27/2023 3:39 PM EDT Associated Order(s): Airway Airway Urgency: elective Date/Time: 10/27/2023 3:30 PM Airway not difficult General Information and Staff Patient location during procedure: OR SHANK TURNER/CAA: Raul Day CRNA Indications and Patient Condition Indications for airway management: airway protection Preoxygenated: yes MILS not maintained throughout Mask difficulty assessment: 2 - vent by mask + OA or adjuvant +/- NMBA Final Airway Details Final airway type: endotracheal airway Successful airway: ETT Cuffed: yes Successful intubation technique: video laryngoscopy Facilitating devices/methods: intubating stylet Endotracheal tube insertion site: oral Blade: Solis Blade size: 4 ETT size (mm): 7.5 Cormack-Lehane Classification: grade I - full view of glottis Placement verified by: chest auscultation and capnometry Measured from: lips ETT/EBT to lips (cm): 22 Number of attempts at approach: 1 Assessment: lips, teeth, and gum same as pre-op and atraumatic intubation Additional Comments Negative epigastric sounds, Breath sound equal bilaterally with symmetric chest rise and fall * Anesthesia Preprocedure Evaluation - William Mayfield MD - 10/27/2023 1:49 PM EDT Anesthesia Evaluation Patient summary reviewed and Nursing notes reviewed no history of anesthetic complications: NPO Solid Status: > 8 hours NPO Liquid Status: > 2 hours Airway Mallampati: II TM distance: >3 FB Neck ROM: full No difficulty expected Dental - normal exam Pulmonary - negative pulmonary ROS and normal exam breath sounds clear to auscultation Cardiovascular - negative cardio ROS and normal exam ECG reviewed Rhythm: regular Rate: normal Neuro/Psych- negative ROS GI/Hepatic/Renal/Endo (+) morbid obesity, liver disease (s/p liver txp) fatty liver disease, renal disease (Dialyzed today)- ESRD and dialysis, diabetes mellitus type 2 using insulin Musculoskeletal 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 Plan discussed with SHANK TURNER. CODE STATUS: Level Of Support Discussed With: Patient Code Status (Patient has no pulse and is not breathing): CPR (Attempt to Resuscitate) Medical Interventions (Patient has pulse or is breathing): Full Support documented in this encounter Plan of Treatment Not on file documented as of this encounter Procedures Procedure Name Priority Date/Time Associated Diagnosis Comments ANESTHESIA INTUBATION Routine 10/27/2023 3:39 PM EDT documented in this encounter Results * BH AN ETT AIRWAY (10/27/2023 3:39 PM EDT) Narrative Raul Day CRNA - 10/27/2023 3:39 PM EDT Raul Day CRNA ? 10/27/2023 ??3:40 PM Airway Urgency: elective Date/Time: 10/27/2023 3:30 PM Airway not difficult General Information and Staff Patient location during procedure: OR SHANK TURNER/CAA: Raul Day CRNA Indications and Patient Condition Indications for airway management: airway protection Preoxygenated: yes MILS not maintained throughout Mask difficulty assessment: 2 - vent by mask + OA or adjuvant +/- NMBA Final Airway Details Final airway type: endotracheal airway Successful airway: ETT Cuffed: yes Successful intubation technique: video laryngoscopy Facilitating devices/methods: intubating stylet Endotracheal tube insertion site: oral Blade: Solis Blade size: 4 ETT size (mm): 7.5 Cormack-Lehane Classification: grade I - full view of glottis Placement verified by: chest auscultation and capnometry Measured from: lips ETT/EBT ??to lips (cm): 22 Number of attempts at approach: 1 Assessment: lips, teeth, and gum same as pre-op and atraumatic intubation Additional Comments Negative epigastric sounds, Breath sound equal bilaterally with symmetric chest rise and fall us William Mayfield MD ANESTHESIA ORDERABLES Final Res ult documented in this encounter Visit Diagnoses Not on filedocumented in this encounter Administered Medications Inactive Administered Medications - up to 3 most recent administrations Medication Order MAR Action Action Date Dose Rate Site lidocaine PF 1% (XYLOCAINE) injection Intravenous, As Needed, Starting on Mon10/27/23 at 1528 Given 10/27/2023 3:28 PM EDT 50 mg ondansetron (ZOFRAN) injection Intravenous, As Needed, Starting on Mon10/27/23 at 1606 Given 10/27/2023 4:06 PM EDT 4 mg piperacillin-tazobactam (ZOSYN) 4.5 g IVPB in [...] Bag 10/29/2023 3:06 AM EDT 4.5 g Propofol (DIPRIVAN) injection Intravenous, As Needed, Starting on Mon10/27/23 at 1528 Given 10/27/2023 3:28 PM EDT 200 mg rocuronium (ZEMURON) injection Intravenous, As Needed, Starting on Mon10/27/23 at 1528 Given 10/27/2023 3:28 PM EDT 50 mg sodium chloride 0.9 % infusion Intravenous, Continuous PRN, Starting on Mon10/27/23 at 1524 New Bag 10/27/2023 3:24 PM EDT sugammadex (BRIDION) injection Intravenous, As Needed, Starting on Mon10/27/23 at 1618 Given 10/27/2023 4:18 PM EDT 300 mg documented in this encounter Care Teams Cancer Program Director Relationship Specialty Start Date End Date Edgar Fournier MD [address] [place] [address] PCP - General Family Medicine 04/27/20 documented as of this encounter
--- OUTSIDE RECORDS SUMMARY | 2024-07-12 12:14 | XMS_ITS | Encounter Summary ---
Author Organization [facility] Address [address] [place] [address] Care Team Providers Care Help Aid Name Role Phone Edgar Fournier MD Primary Care Provider [phone] Reason for Referral * Durable Medical Equipment (Routine) - Closed Specialty Diagnoses / Procedures Referred By Contvidal t Referred To Contact Diagnoses Obstructive sleep apnea Procedures PAP Therapy PAP Therapy Claudia Calles MD [address] [place] [address] Phone: tel: fax: [facility] - [address] [place] [address] Phone: tel: fax: Referral ID Status Reason Start Date Expiration Date Visits Re quested Visits Authorized [id number] Closed 10/09/2023 10/08/2024 1 1 Reason for Visit * Reason Comments Sleep Apnea Not using machine, s mothering feeling. Encounter Details Date Type Department Care Team (Late st Contact Info) Description 10/09/2023 1:00 PM EST Office Visit [facility] [address] [place] [phone] Claudia Calles MD [address] [place] [address] Obstructive sleep apnea (Primary Dx); ESRD (end stage renal disease); Malignant hypertension Social History Tobacco Use Types Packs/Day Years Used Date Smoking Tobacco: Never Passive Smoke Exposure: Never Smokeless Tobacco: Never Alcohol Use Standard Drinks/Week Comments Never 0 (1 standard drink = 0.6 oz pur e alcohol) AUDIT-C Answer Date Recorded Q1: How often do you have a drink containing alcohol? Never 08/11/2023 Q2: How many drinks containi ng alcohol do you have on a typical day when you are drinking? Patient does not drink Q3: How often do you have si x or more drinks on one occasion? Never 08/11/2023 Abuse Screen Answer Date Recorded Feels Unsafe at Home or Work/School no 08/10/2023 Feels Threatened by Someone no 07/15 Does Anyone Try to Keep You From Having Contact with Others or Doing Things Outside Your Home? no 08/10/2023 Physical Signs of Abuse Present no 08/10/2023 Housing Stability Answer Date Recorded Current Living Arrangements home 07/15 Potentially Unsafe Housing Conditions Not on gen e 08/11/2023 Family and Community Support Answer Gilbert e Recorded Help with Day-to-Day Activities Not on file 05/21/2023 Lonely or Isolated Not on file 05/21/2023 Employment Answer Date Recorded Do you want help finding or keeping work or a alta b? Not on file 05/21/2023 Disabilities Answer Date Recorded Difficulty Concentrating, Remembering or Making Decisions no 08/11/2023 Difficulty Managing Errands Independently no 08/11/2023 Education Answer Date Recorded Help with school [...] Sign Reading Time Taken Comments Blood Pressure 205/90 10/09/2023 1:22 PM EST Pulse 84 10/09/2023 1:22 PM EST Temperature - - Respiratory Rate - - Oxygen Saturation 93% 10/09/2023 1:22 PM EST Inhaled Oxygen Concentration - - Weight 140 kg (309 lb) 10/09/2023 1:22 PM EST Height 175.3 cm (5' 9 ) 10/09/2023 1:22 PM EST Body Mass Index 45.63 10/09/2023 1:22 PM EST documented in this encounter Progress Notes * Claudia Calles MD - 10/09/2023 1:00 PM EST Images from the original note were not included. [facility] Provider Note Date: 10/09/2023 Name: Aiden Stauffer Jr. : 1975 PCP: Edgar Fournier MD Chief Complaint Patient presents with ??? Sleep Apnea Not using machine, smothering feeling. Subjective History of Present Illness Aiden Stauffer Jr. is a 48 y.o. male who presents today for follow-up on blood pressure, sleep apnea and fluid status. Concerned he may need admission for fluid overload. Weight up 9-10lbs. Trouble getting it off with home HD. Says he can only pull 3L at home at a time and gets cramps and low BP if pulls too fast. This has come up since his admission to [facility] and missing a day of HD. Denies chest pain, just very short of breath at rest. Fluid is in his abdomen, no LE edmea. Up about 10 pounds at home. Still having trouble wearing bipap, states he cannot tolerate it. Wants to switch back to a cpap says in the hospital he does well with a pressure of 15. No specialty comments available. Allergies Allergen Reactions ??? Tacrolimus Other (See Comments) and Unknown - High Severity Anxious feeling and muscle jerking. TOLERATED ENVARSUS BETTER THAN PROGRAF. ??? Codeine Anxiety and Unknown - Low Severity ??? Calcitriol GI Intolerance Current Outpatient Medications: ??? ALPRAZolam (XANAX) 0.5 MG tablet, Take 1 tablet by mouth., Disp: , Rfl: ??? aspirin 81 MG chewable tablet, Chew 1 tablet Daily., Disp: , Rfl: ??? azithromycin (Zithromax) 250 MG tablet, First day take two pills then one pill daily for 7 days, Disp: 8 tablet, Rfl: 0 ??? B-D 3CC LUER-LISSETTE SYR 25GX1/2 25G X 1-1/2 3 ML misc, , Disp: , Rfl: ??? calcitriol (ROCALTROL) 0.25 MCG capsule, Take 1 capsule by mouth Daily., Disp: , Rfl: ??? calcium acetate (PHOS BINDER,) 667 MG capsule capsule, Take 1 capsule by mouth 3 (Three) Times a Day., Disp: , Rfl: ??? carBAMazepine (TEGretol) 200 MG tablet, Take 1 tablet by mouth Every Night. For feet cramps, Disp: , Rfl: ??? carvedilol (COREG) 25 MG tablet, Take 2 tablets (50 mg total) by mouth 2 times a day with meals., Disp: , Rfl: ??? cephalexin (Keflex) 500 MG capsule, Take 1 capsule by mouth 2 (Two) Times a Day., Disp: 14 capsule, Rfl: 0 ??? cholecalciferol (VITAMIN D3) 1.25 MG (76271 UT) capsule, Take 1 capsule by mouth 3 (Three) Times a Week., Disp: , Rfl: ??? cinacalcet (SENSIPAR) 90 MG tablet, TAKE 1 TABLET BY MOUTH DAILY WITH EVENING MEAL, Disp: , Rfl: ??? Continuous Blood Gluc Sensor (FilecoinStyle Leonel 2 Sensor) [facility], USE DIRECTED CHANGE EVERY 14 DAYS DIRECTED, Disp: , Rfl: ??? cycloSPORINE modified (NEORAL) 25 MG capsule, Take 4 capsules by mouth., Disp: , Rfl: ??? Depo-Testosterone 200 MG/ML injection, inject 1 Milliliter intramuscularly once monthly, Disp: , Rfl: ??? doxazosin (CARDURA) 8 MG tablet, Take 1 tablet by mouth At Night As Needed., Disp: , Rfl: ??? entecavir (BARACLUDE) 0.5 MG tablet, Take 1 tablet by mouth Every 7 (Seven) Days., Disp: , Rfl: ??? fenofibrate micronized (LOFIBRA) 134 MG capsule, Take 1 capsule by mouth Daily., Disp: , Rfl: ??? folic acid (FOLVITE) 1 MG tablet, Take 1 tablet by mouth Daily., Disp: , Rfl: ??? gabapentin (NEURONTIN) 800 MG tablet, Take 0.5 tablets by mouth Every Night., Disp: , Rfl: ??? hydrALAZINE (APRESOLINE) 100 MG tablet, Take 1 tablet by mouth 3 (Three) Times a Day., Disp: 90tablet, Rfl: 0 ??? insulin glargine (LANTUS, SEMGLEE) 100 UNIT/ML injection, Inject 30 Units under the skin into the appropriate area as directed Every Night., Disp: , Rfl: ??? insulin regular (humuLIN R,novoLIN R) 100 UNIT/ML injection, Inject 5 Units under the skin intothe appropriate area as directed 3 (Three) Times a Day Before Meals., Disp: , Rfl: ??? methocarbamol (ROBAXIN) 500 MG tablet, Take 1 tablet by mouth 1 (One) Time., Disp: , Rfl: ??? montelukast (SINGULAIR) 10 MG tablet, Take 1 tablet by mouth Daily., Disp: , Rfl: ??? NIFEdipine CC (ADALAT CC) 90 MG 24 hr tablet, Take 1 tablet by mouth 2 (Two) Times a Day., Disp: , Rfl: ??? ondansetron ODT (ZOFRAN-ODT) 8 MG disintegrating tablet, Take 1 tablet by mouth 3 (Three) Timesa Day As Needed., Disp: , Rfl: ??? pantoprazole (PROTONIX) 40 MG EC tablet, Take 1 tablet by mouth., Disp: , Rfl: ??? vitamin D (ERGOCALCIFEROL) 1.25 MG (11048 UT) capsule capsule, Take 1 capsule by mouth 2 (Two) Times a Week. Takes on Monday and , Disp: , Rfl: ??? Xphozah 20 MG tablet, Take 1 tablet by mouth., Disp: , Rfl: Past Medical History: Diagnosis Date ??? Diabetes mellitus ??? Dialysis patient ??? Hemorrhage THROAT VARICIES ??? Kidney failure ??? Liver transplanted Past Surgical History: Procedure Laterality Date ??? ARTERIOVENOUS FISTULA Left 2019 ??? CARDIAC CATHETERIZATION times 2022 ??? CHOLECYSTECTOMY ??? ENDOSCOPY N/A 05/04/2020 Procedure: ESOPHAGOGASTRODUODENOSCOPY; Surgeon: Dewey Betancourt MD; Location: [facility] ENDOSCOPY; Service: Gastroenterology; Laterality: N/A; ??? LUMBAR LAMINECTOMY DISCECTOMY DECOMPRESSION N/A 04/29/2020 Procedure: LUMBAR LAMINECTOMY DISCECTOMY DECOMPRESSION POSTERIOR L4-5; Surgeon: Yinka Garnica MD; Location: [facility] OR; Service: Neurosurgery; Laterality: N/A; History reviewed. No pertinent family history. Social History Socioeconomic History ??? Marital status: Tobacco Use ??? Smoking status: Never Passive exposure: Never ??? Smokeless tobacco: Never Vaping Use ??? Vaping Use: Never used Substance and Sexual Activity ??? Alcohol use: Never ??? Drug use: Never ??? Sexual activity: Defer Objective Vital Signs: BP (!) 205/90 Pulse 84 Ht 175.3 cm (69 ) Wt (!) 140 kg (309 lb) SpO2 93% BMI 45.63 kg/m?? Estimated body mass index is 45.63 kg/m?? as calculated from the following: Height as of this encounter: 175.3 cm (69 ). Weight as of this encounter: 140 kg (309 lb). Physical Exam Vitals reviewed. Constitutional: General: He is not in acute distress. Appearance: Normal appearance. HENT: Head: Normocephalic and atraumatic. Mouth/Throat: Mouth: Mucous membranes are moist. Eyes: Conjunctiva/sclera: Conjunctivae normal. Neck: Vascular: No carotid bruit. Cardiovascular: Rate and Rhythm: Normal rate and regular rhythm. Pulses: Normal pulses. Heart sounds: Normal heart sounds. No murmur heard. Pulmonary: Effort: Pulmonary effort is normal. No respiratory distress. Breath sounds: Normal breath sounds. No wheezing or rhonchi. Chest: Comments: Tunneled hemodialysis catheter right upper chest Abdominal: General: Abdomen is flat. There is distension. Palpations: Abdomen is soft. Musculoskeletal: Cervical back: Normal range of motion and neck supple. Right lower leg: No edema. Left lower leg: No edema. Comments: Left forearm AV fistula Skin: General: Skin is warm and dry. Coloration: Skin is not jaundiced. Neurological: General: No focal deficit present. Mental Status: He is alert and oriented to person, place, and time. Mental status is at baseline. GCS: GCS eye subscore is 4. GCS verbal subscore is 5. GCS motor subscore is 6. Cranial Nerves: No cranial nerve deficit. Motor: No weakness. Gait: Gait normal. Psychiatric: Mood and Affect: Mood and affect normal. Mood is not anxious. Speech: Speech normal. Behavior: Behavior normal. Assessment and Plan Diagnoses and all orders for this visit: 1. Obstructive sleep apnea (Primary) Comments: Change PAP therapy to CPAP 15 for comfort. Orders: - Cancel: PAP Therapy - PAP Therapy 2. ESRD (end stage renal disease) 3. Malignant hypertension The patient wondered if he needed to be admitted for his end-stage renal disease and inpatient dialysis. We discussed this. He did not want to go to because he has been unhappy with them before. Since he has a transplant he is worried about going to [facility] or other local hospitals. He mentionedhe has been seen at [facility] before and usually is happy with their care. So I conta cted them over the phone. It took quite some time for the transplant team to call me back. The patient wanted to leave in the meantime because if he was going to do dialysis at home he had to go get supplies and saline bags. 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 I sent the patient a [employer] message to relay all of this. Recommendations: ER if symptoms increase and Report if any new/changing symptoms immediately I spent 60 minutes caring for Aiden on this date of service. This time includes time spent by me inthe following activities:reviewing tests, performing a medically appropriate examination and/or evaluation , ordering medications, tests, or procedures, referring and communicating with other health human services care specialist , documenting information in the medical record, and care coordination Follow Up No follow-ups on file. Claudia Calles MD 10/09/2023 Please note that this explicitly excludes time spent on other separate billable services such as performing procedures or test interpretation, when applicable. This note was created using dictation software which occasionally transcribes nonsensical phrases. Please contact the provider if any clarification is needed. documented in this encounter Plan of Treatment Not on file documented as of this encounter Visit Diagnoses Diagnosis Obstructive sleep apnea- Primary Obstructive sleep apnea (adult) (pediatric) ESRD (end stage renal disease) End stage renal disease Malignant hypertension Essential hypertension, malignant documented in this encounter Care Teams Help Aid Relationship Specialty Start Date End Date Edgar Fournier MD [address] [place] [address] [address] [place], [place] [address] PCP - General Family Medicine 04/27/20 documented as of this encounter
--- OUTSIDE RECORDS SUMMARY | 2024-07-12 12:14 | XMS_ITS | Encounter Summary ---
Author Organization [facility] Address [address] [place] [address] Care Team Providers Care Field Service Supervisor Name Role Phone Edgar Fournier MD Primary Care Provider [phone] Encounter Details Date Type Department Care Team (Late st Contact Info) Description 08/14/2023 Readmission Management [facility] [address] [place] [phone] Heena King, JANA Social History Tobacco Use Types Packs/Day Years Used Date Smoking Tobacco: Never Smokeless Tobacco: Never Alcohol Use Standard [...] as of this encounter Miscellaneous Notes * Outreach Note - Heena King, JANA - 08/14/2023 11:53 AM EST Prep Survey Flowsheet Row Responses [facility] facility patient discharged from? [facility] Is LACE score < 7 ? No Eligibility Readm Mgmt Discharge diagnosis Hyperkalemia Does the patient have one of the following disease processes/diagnoses(primary or secondary)? Other Does the patient have Home health ordered? No Is there a DME ordered? No Medication alerts for this patient see AVS Prep survey completed? Yes Heena Rivera - Registered Nurse documented in this encounter Plan of Treatment Not on file documented as of this encounter Visit Diagnoses Not on filedocumented in this encounter Care Teams Field Service Supervisor Relationship Specialty Start Date End Date Edgar Fournier MD [address] [place], [place] [address] PCP - General Family Medicine 04/27/20 documented as of this encounter
--- OUTSIDE RECORDS SUMMARY | 2024-07-12 12:14 | XMS_ITS | Encounter Summary ---
Author Organization [facility] Address [address] [place] [address] Care Team Providers Care Bottomer Operator Name Role Phone Edgar Fournier MD Primary Care Provider [phone] Reason for Visit * Reason Comments fistula problem * Auth/Cert (Routine) Specialty Diagnoses / Procedures Referred By Contac t Referred To Contact Diagnoses Arm pain Referral ID Status Reason Start Date Expiration Date Visits Re quested Visits Authorized [id number] 1 1 Encounter Details Date Type Department Care Team (Late st Contact Info) Description 10/27/2023 2:45 PM EDT - 10/27/2023 5:14 PM EDT Surgery [facility] [address] [id number] Dontae Gruber MD [address] [place] [address] ARTERIOVENOUS FISTULA LIGATION LEFT Social History Tobacco Use Types Packs/Day Years [...] Sign Reading Time Taken Comments Blood Pressure 144/85 10/27/2023 5:00 PM EDT Pulse 75 10/27/2023 5:00 PM EDT Temperature 37.2 ??C (99 ??F) 10/27/2023 4:45 PM EDT Respiratory Rate 16 10/27/2023 4:45 PM EDT Oxygen Saturation 97% 10/27/2023 5:00 PM EDT Inhaled Oxygen Concentration - - Weight 136 kg (300 lb) 10/27/2023 1:55 PM EDT Height 175.3 cm (5' 9 ) 10/27/2023 1:55 PM EDT Body Mass Index 39.72 10/27/2023 1:55 PM EDT documented in this encounter Discharge Summaries * Chiquita Porter APRN - 11/02/2023 6:27 PM EDT Images from the original note were not included. [facility] Medicine Services ELOPEMENT AGAINST MEDICAL ADVICE Patient Name: Aiden Stauffer . : 1975 Date of Admission: 10/25/2023 Date [...] evening --Follow up with Dr Sky @ [facility] after discharge --AM labs Hyperkalemia --K 5.7 [...] Center 12/06/2023 1:30 PM PAT 1 [facility] Chiquita Potrer APRN 11/05/23 Cosigned by Kevin Muller MD at 11/05/2023 12:07 PM EDT Associated attestation - Kevin Muller MD - 11/05/2023 12:07 PM EDT I have reviewed this documentation and agree. * Eugenie Carroll OT - 10/26/2023 3:00 PM EDT Images from the original note were not included. Acute Care - Occupational Therapy Discharge [facility] Patient Name: Aiden Stauffer Jr. : 1975 [...] Procedure: ESOPHAGOGASTRODUODENOSCOPY; Surgeon: Dewey Betancourt MD; Location: COUNTS INCLUDE 234 BEDS AT THE [facility] END[facility]; Service: Gastroenterology; Laterality: N/A; LUMBAR LAMINECTOMY DISCECTOMY DECOMPRESSION N/A 04/29/2020 Procedure: LUMBAR LAMINECTOMY DISCECTOMY DECOMPRESSION POSTERIOR L4-5; Surgeon: Yinka Garnica MD; Location: [facility] INCLUDE 234 BEDS AT THE [facility] OR; Service: Neurosurgery; Laterality: N/A; General [...] Living Environment People in Home spouse;child(paddy), adult -[facility] Name 10/26/23 1506 Home Main Entrance Number of Stairs, Main Entrance none -[facility] Name 10/26/23 1506 Stairs Within Home, Primary Number of Stairs, Within Home, Primary none -[facility] Name 10/26/23 1506 Cognition Orientation Status (Cognition) oriented x 4 -[facility] Name 10/26/23 1506 Safety Issues, Functional Mobility Comment, Safety Issues/Impairments (Mobility) n/a - User Dyer (r) = Recorded By, (t) = Taken By, (c) = Cosigned By Initials Name Provider Type Eugenie Lopez OT Occupational Therapist Mobility/ADL's Row Name 10/26/23 1507 Bed Mobility Comment, (Bed Mobility) Pt up ad shelia upon entering room -[facility] Name 10/26/23 1507 Transfers Transfers sit-stand transfer;stand-sit transfer -[facility] Name 10/26/23 1507 Sit-Stand Transfer Sit-Stand Taylor (Transfers) independent - Assistive Device (Sit-Stand Transfers) other (see comments) None - Row Name 10/26/23 1507 Stand-Sit Transfer Stand-Sit Taylor (Transfers) independent - User Dyer (r) = Recorded By, (t) = Taken By, (c) = Cosigned By Initials Name Provider Type Eugenie Lopez OT Occupational Therapist Obj/Interventions Row Name 10/26/23 1508 Sensory Assessment (Somatosensory) Sensory Assessment (Somatosensory) UE sensation intact -[facility] Name 10/26/23 1508 Range of Motion Comprehensive General Range of Motion bilateral upper extremity ROM WFL - Row Name 10/26/23 1508 Strength Comprehensive (MMT) Comment, General Manual Muscle Testing (MMT) Assessment BUE MMT grossly 5/5 - Row Name 10/26/23 1508 Balance Balance Assessment sitting static balance;sitting dynamic balance;sit to stand dynamic balance;standing static balance;standing dynamic balance -KL Static Sitting Balance independent -KL Dynamic Sitting Balance independent -KL Position, Sitting Balance unsupported -KL Sit to Stand Dynamic Balance independent -KL Static Standing Balance independent -KL Dynamic Standing Balance independent -KL Position/Device Used, Standing Balance unsupported -KL Balance Interventions sitting;standing;sit to stand;supported;static;dynamic;occupation based/functional task - User Dyer (r) = Recorded By, (t) = Taken By, (c) = Cosigned By Initials Name Provider Type Eugenie Lopez OT Occupational Therapist Goals/Plan No documentation. Clinical Impression Row Name 10/26/23 1509 Pain Assessment Pretreatment Pain Rating 0/10 - no pain - Posttreatment Pain Rating 0/10 - no pain -[facility] Name 10/26/23 1502 Plan of Care Review Plan of Care Reviewed With patient - Outcome Evaluation Pt presents to OT latoya parson. No therapy needs identified at this time. Please reconsult if there is a change in medical status. -[facility] Name 10/26/23 1504 Therapy Assessment/Plan (OT) Criteria for Skilled Therapeutic Interventions Met (OT) no problems identified which require skilled intervention -[facility] Name 10/26/23 1507 Therapy Plan Review/Discharge Plan (OT) Anticipated Discharge Disposition (OT) home -[facility] Name 10/26/23 1500 Positioning and Restraints Pre-Treatment Position standing in [...] 8 --> Walked 250 feet or more - Row Name 10/26/238 10/26/23 151 Functional Assessment Outcome Measure Options AM-PAC 6 Clicks Basic Mobility (PT) - AM-PAC 6 Clicks Daily Activity (OT)- User Dyer (r) = Recorded By, (t) = Taken By, (c) = Cosigned By Initials Name Provider Type Selina Lucas, PT Physical Therapist Eugenie Lopez, OT Occupational Therapist Occupational Therapy Education Title: PT OT GILL TENDER Therapies (In Progress) Topic: Occupational Therapy (In Progress) Point: ADL training (Done) Description: Instruct learner(s) on proper safety adaptation and remediation techniques during self care or transfers. Instruct in proper use of assistive devices. Learning Progress Summary Patient Acceptance, E, DU by at 10/26/20231512 Point: Home exercise program (Not Started) Description: Instruct learner(s) on appropriate technique for monitoring, assisting and/or progressing therapeutic exercises/activities. Learner Progress: Not documented in this visit. Point: Precautions (Done) Description: Instruct learner(s) on prescribed precautions during self-care and functional transfers. Learning Progress Summary Patient Acceptance, E, DU by at 10/26/20231512 Point: Body mechanics (Done) Description: Instruct learner(s) on proper positioning and spine alignment during self-care, functional mobilityactivities and/or exercises. Learning Progress Summary Patient Acceptance, E, DU by at 10/26/20231512 User Dyer Initials Effective Dates Name Provider Type [facility] 09/18/23 - Eugenie Carroll OT Occupational Therapist [...] Description Service Date Service Provider Modifiers Qty [id number] OT EVAL LOW COMPLEXITY 3 10/26/2023 Eugenie Carroll OT GO 1 OT Discharge Summary Anticipated Discharge Disposition (OT): home Reason for Discharge: Independent Outcomes Achieved: Refer to plan of care for updates on goals achieved Discharge Destination: Home Eugenie Carroll OT 10/26/2023 * Selina Lucas PT - 10/26/2023 2:53 PM EDT Images [...] V45.11 Patient Active Problem List Diagnosis Sepsis KMI (nonalcoholic steatohepatitis) History of liver transplant Immunosuppression [...] Procedure: ESOPHAGOGASTRODUODENOSCOPY; Surgeon: Dewey Betancourt MD; Location: [facility]; Service: Gastroenterology; Laterality: N/A; LUMBAR LAMINECTOMY DISCECTOMY DECOMPRESSION N/A 04/29/2020 Procedure: LUMBAR LAMINECTOMY DISCECTOMY DECOMPRESSION POSTERIOR L4-5; Surgeon: Yinka Garnica MD; Location: [facility] OR; Service: Neurosurgery; Laterality: N/A; General Information Row Name 10/26/23 151 Physical Therapy Time and Intention Document Type discharge evaluation/summary -ES Mode of Treatment physical therapy -ES Row Name 10/26/23 151 General Information Patient Profile Reviewed yes -ES [...] (see comments) ramp -ES Row Name 10/26/23 1511 Stairs Within Home, Primary Number of Stairs, Within Home, Primary none -ES Row Name 10/26/23 151 Cognition Orientation Status (Cognition) oriented x 4 -ES User Dyer (r) = Recorded By, (t) = Taken By, (c) = Cosigned By Initials Name Provider Type ES Selina Lucas PT Physical Therapist Mobility Row Name 10/26/231510 Bed Mobility Comment, (Bed Mobility) Received sitting EOB -ES Row Name 10/26/23 1511 Sit-Stand Transfer Sit-Stand Taylor (Transfers) independent -ES Assistive Device (Sit-Stand Transfers) other (see comments) none -ES Row Name 10/26/23 1511 Gait/Stairs (Locomotion) Taylor Level (Gait) independent -ES Assistive Device (Gait) [...] Type ES Selina Lucas, PT Physical Therapist Obj/Interventions Row Name 10/26/23 1514 Range of Motion Comprehensive General Range of Motion lower extremity range of motion deficits identified -ES Comment, General Range of Motion B drop foot from remote injury. All other BLE ROM WFL. -ES Row Name 10/26/23 1514 Strength Comprehensive (MMT) General Manual Muscle Testing (MMT) Assessment no strength deficits identified -ES Row Name 10/26/23 1514 Balance Balance Assessment sitting static balance;sitting dynamic [...] Type ES Selina Lucas, PT Physical Therapist Goals/Plan No documentation. Clinical Impression Row Name 10/26/23 1515 Pain Pretreatment Pain Rating 0/10 - no pain -ES Posttreatment Pain Rating 0/10 - no pain -ES Pre/Posttreatment Pain Comment tolerated -ES Pain Intervention(s) Repositioned;Ambulation/increased activity -ES Row Name 10/26/23 1515 Plan of Care Review Plan of Care Reviewed With patient -ES Progress no change PT IE -ES Outcome Evaluation PT eval complete. Pt presents at baseline for functional mobility including ambulation. IPPT services not warranted, PT signing off. PT rec home with assist at d/c. -ES Row Name 10/26/23 1515 Therapy Assessment/Plan (PT) Criteria for Skilled Interventions [...] Patient Position Sitting -ES Row Name 10/26/23 151 Positioning and Restraints Pre-Treatment Position in bed [...] (PT) -ES AM-PAC 6 Clicks Daily Activity (OT)-KL User Dyer (r) = Recorded By, (t) = Taken By, (c) = Cosigned By Initials Name Provider Type ES Selina Lucas PT Physical Therapist Eugenie Lopez OT Occupational Therapist Physical Therapy Education Title: PT OT GILL TENDER Therapies (In Progress) Topic: Physical Therapy (In Progress) Point: Mobility training (Done) Learning Progress Summary Patient Acceptance, E,TB, VU by ES at 10/26/2023 151 Point: Home exercise program (Not Started) Learner Progress: Not documented in this visit. Point: Body mechanics (Done) Learning Progress Summary Patient Acceptance, E,TB, VU by ES at 10/26/20231518 Point: Precautions (Done) Learning Progress Summary Patient Acceptance, E,TB, VU by ES at 10/26/20231518 User Dyer Initials Effective Dates Name Provider Type Discipline 03/24/22 - Selina Lucas PT Physical Therapist PT PT Recommendation and [...] Complexity): low complexity PT Charges Row Name 10/26/239 Time Calculation Start Time 1453 -ES PT [...] Description Service Date Service Provider Modifiers Qty [id number] HC PT EVAL LOW COMPLEXITY 3 10/26/2023 [...] with meals. cholecalciferol (VITAMIN D3) 1.25 MG (46780 UT) capsule Take 1 capsule by mouth 3 (Three) Times a Week. 3 cinacalcet (SENSIPAR) 90 MG tablet TAKE 1 TABLET BY MOUTH DAILY WITH EVENING MEAL 4 Continuous Blood Gluc Sensor (FreeStyle Leonel 2 Sensor) [facility] USE DIRECTED CHANGE EVERY 14 DAYS DIRECTED [...] DISEASE PROGRESS NOTE Aiden Stauffer . 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 He was treated with Zosyn and Vancomycin.He was discharged home on oral cefuroxime and oral doxycycline for 4 days. He returned to [facility] ED on 10/24 for worsening pain, [...] LIGATION LEFT; Surgeon: Dontae Gruber MD; Location: [facility]; Service: Vascular; Laterality: Left; CARDIAC CATHETERIZATION times 3 2022 CHOLECYSTECTOMY ENDOSCOPY N/A 05/04/2020 Procedure: ESOPHAGOGASTRODUODENOSCOPY; Surgeon: Dewey Betancourt MD; Location: [facility]CLUDE 234 BEDS AT THE [facility]; Service: Gastroenterology; Laterality: N/A; LUMBAR LAMINECTOMY DISCECTOMY DECOMPRESSION N/A 04/29/2020 Procedure: LUMBAR LAMINECTOMY DISCECTOMY DECOMPRESSION POSTERIOR L4-5; Surgeon: Yinka Garnica MD; Location: [facility] 234 BEDS AT THE [facility] OR; Service: Neurosurgery; Laterality: [...] mg/3mL, 2.5 mg, Nebulization, Q6H PRN, Chiquita Porter APRN ALPRAZolam (XANAX) tablet 0.5 mg, 0.5 mg, [...] Dontae Gruber MD, 25 mg at 11/02/23 09 cefTRIAXone (ROCEPHIN) 2,000 mg in sodium chloride 0.9 % 100 mL MBP, 2,000 mg, Intravenous, Q24H, Giancarlo Valderrama PA, Last Rate: 200 mL/hr at 11/01/23 1844, 2,000 mg at 11/01/23 184 cinacalcet (SENSIPAR) tablet 90 mg, 90 mg, Oral, Nightly, Dontae Gruber MD, 90 mg at 11/01/232220 cycloSPORINE modified (NEORAL) capsule 100 mg, 100 [...] PRN, Michelle Shore DO, 25 mg at 10/30/232210 fenofibrate (TRICOR) tablet 145 mg, 145 mg, Oral, Daily, Dontae Gruber MD, 145 mg at 11/02/23 0945 folic acid (FOLVITE) tablet 1,000 mcg, 1,000 mcg, Oral, Daily, Dontae Gruber MD, 1,000 mcg at 11/02/23 0945 gabapentin (NEURONTIN) capsule 300 mg, 300 mg, Oral, Nightly, Dontae Grubre MD, 300 mg at11/01/23 2222 glucagon (GLUCAGEN) [...] Nebulization, 4x Daily - RT, Chiquita Porter, AIRPORT SCREENER, 3 mL at 11/02/23 0740 melatonin tablet [...] PRN, Michelle Shore, DO, 1 tablet at 11/01/23 2223 pantoprazole [...] packet 10 g, 10 g, Oral, BID, Chiquita Porter, AIRPORT SCREENER Antibiotics: Anti-Infectives (From admission, onward) Ordered Dose/Rate [...] Catheter Culture - Cath Tip, Chest, Right [[id number]] Collected: 10/30/23 1607 Lab Status: Final result Specimen: Cath Tip from Chest, Right Updated: 11/01/23 0712 CATHETER CULTURE No growth at 2 days Blood Culture - Blood, Hand, Right [[id number]] (Normal) Collected: 10/28/23 1342 Lab Status: Preliminary result Specimen: Blood from Hand, Right Updated: 11/01/23 1500 Blood Culture No growth at 4 days Blood Culture - Blood, Arm, Right [[id number]] (Normal) Collected: 10/28/23 1342 Lab Status: Preliminary result Specimen: Blood from Arm, Right Updated: 11/01/23 1500 Blood Culture No growth at 4 days Blood Culture - Blood, Hand, Right [[id number]] (Abnormal) Collected: 10/26/23 0536 Lab Status: Preliminary result Specimen: Blood from Hand, Right Updated: 10/31/23 0613 Blood Culture Gram Positive Cocci Comment: Sending other set to [facility] for ID and MICs Isolated from -- Gram Stain Aerobic Bottle Gram positive cocci in pairs and chains Narrative: Refer to previous blood culture collected on 10/26/2023 0500 for MICs Less than seven (7) mL's of blood was collected. Insufficient quantity may yield false negative results. 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, JEWEL BEARING FACER Swab in UTM/VTM, 2 HR TAT - Swab, Nasopharynx [[id number]] (Normal) Collected: 10/26/23514 Lab Status: Final result [...] MRSA Screen, PCR (Inpatient) - Swab, Nares [[id number]] (Normal) Collected: 10/26/23514 Lab Status: Final result Specimen: Swab from Nares Updated: 10/26/23 0958 MRSA PCR Negative Narrative: The negative predictive value of this diagnostic test is high and should only be used to consider de-escalating anti-MRSA therapy. A positive result may indicate colonization with MRSA and must be correlated clinically. MRSA Negative Blood Culture - Blood, Arm, Right [[id number]] (Abnormal) Collected: 10/26/23 0500 Lab Status: Preliminary result Specimen: Blood from Arm, Right Updated: 10/31/23 0614 Blood Culture Gram Positive Cocci Comment: Sending to [facility] for ID and MICs Isolated from -- [...] Culture ID, PCR - Blood, Arm, Right [[id number]] Collected: 10/26/23 0500 Lab Status: Final result Specimen: Blood from Arm, Right Updated: 10/27/23 1658 BCID, PCR Negative by BCID PCR. Culture to Follow. BOTTLE TYPE Anaerobic Bottle Radiology: Imaging Results (Last 72 Hours) Procedure Component Value Units Date/Time IR NON-HUEY TEMP DIALYSIS ACC [[id number]] Collected: 11/01/23 1356 Updated: 11/01/23 1400 Narrative: IR NON-TUNNELED TEMP DIALYSIS ACCESS History: Need for temporary dialysis catheter placement. 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 Debarker Operator: Victor Manuel Castro MD. Fire Warden: None Modality: Sonography and fluoroscopy DOSE REDUCTION: [...] stable condition. Complications: None immediate. Device: 14 Slovak x15 cm Dual-lumen nontunneled dialysis catheter . [...] MD 11/01/2023 1:57 PM EDT Workstation ID: [id number] IR Removal Tunnel CV Cath Without Port [[id number]] Collected: 10/30/23 1635 Updated: 10/31/23 1247 Narrative: IR REMOVAL TUNNEL CV CATH WO PORT History: bacteremia, immunocompromised Debarker Operator: Victor Manuel Castro MD. Modality: Not applicable. No sedation. Anesthesia: Lidocaine 1% Estimated blood loss: < 5 cc. Technique: A universal timeout was performed prior to starting the procedure. The graduating machine operator used personal protective equipment and sterile [...] MD 10/31/2023 12:44 PM EDT Workstation ID: [id number] Impression: - Left upper extremity atriovenous graft [...] tunneled catheter follow-up with Dr. Sky at [facility]. Dialyzes 4 times a week. 2. Infected [...] from the original note were not included. [facility] Medicine Services PROGRESS NOTE Patient Name: Aiden [...] ill-appearing male sitting up in bed in [facility] ENT: [place], moist mucous membranes Respiratory: Nonlabored, symmetrical chest [...] Date/Time Blood Culture - Blood, Hand, Right [[id number]] (Normal) Collected: 10/28/231341 Lab Status: Preliminary result Specimen: Blood from Hand, Right Updated: 11/01/23 1500 Blood Culture No growth at 4 days Blood Culture - Blood, Arm, Right [[id number]] (Normal) Collected: 10/28/231341 Lab Status: Preliminary result Specimen: Blood from Arm, Right Updated: 11/01/23 1500 Blood Culture No growth at 4 days Catheter Culture - Cath Tip, Chest, Right [[id number]] Collected: 10/30/23 1607 Lab Status: Final result Specimen: Cath Tip from Chest, Right Updated: 11/01/23 0712 CATHETER CULTURE No growth at 2 days Blood Culture ID, PCR - Blood, Arm, Right [[id number]] Collected: 10/26/23 0500 Lab Status: Final result Specimen: Blood from Arm, Right Updated: 10/27/23 1658 BCID, PCR Negative by BCID PCR. Culture to Follow. BOTTLE TYPE Anaerobic Bottle MRSA Screen, PCR (Inpatient) - Swab, Nares [[id number]] (Normal) Collected: 10/26/23514 Lab Status: Final result Specimen: Swab from Nares Updated: 10/26/23 0958 MRSA PCR Negative Narrative: The negative predictive value of this diagnostic test is high and should only be used to consider de-escalating anti-MRSA therapy. A positive result may indicate colonization with MRSA and must be correlated clinically. 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, JEWEL BEARING FACER Swab in UTM/VTM, 2 HR TAT - Swab, Nasopharynx [[id number]] (Normal) Collected: 10/26/23514 Lab Status: Final result [...] placement. 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 Debarker Operator: Victor Manuel Castro MD. Fire Warden: None Modality: Sonography and fluoroscopy DOSE REDUCTION: [...] stable condition. Complications: None immediate. Device: 14 Slovak x15 cm Dual- lumen nontunneled dialysis catheter [...] MD 11/01/2023 1:57 PM EDT Workstation ID: [id number] Current medications: Scheduled Meds:entecavir, 0.5 mg, Oral, [...] evening --Follow up with Dr Sky @ [facility] after discharge --AM labs Hyperkalemia --K 5.7 [...] tunneled catheter follow-up with Dr. Sky at [facility]. Dialyzes 4 times a week. 2. Infected [...] from the original note were not included. [facility] Medicine Services PROGRESS NOTE Patient Name: Aiden [...] sitting up in bed in [facility] ENT: [place], moist mucous membranes Respiratory: Nonlabored, symmetrical chest [...] 10/29/23 0503 10/28/23 0439 10/27/23 0500 WBC 7.66 4.16 5.35 [...] 101.7* 102.0* Lab 11/01/23 0504 10/31/23 0504 10/30/23 0418 10/29/23 0503 10/28/23 0439 SODIUM 132* 131* 132* 132* 133* [...] Date/Time Blood Culture - Blood, Hand, Right [[id number]] (Normal) Collected: 10/28/231341 Lab Status: Preliminary result Specimen: Blood from Hand, Right Updated: 11/01/23 1500 Blood Culture No growth at 4 days Blood Culture - Blood, Arm, Right [[id number]] (Normal) Collected: 10/28/231341 Lab Status: Preliminary result Specimen: Blood from Arm, Right Updated: 11/01/23 1500 Blood Culture No growth at 4 days Catheter Culture - Cath Tip, Chest, Right [[id number]] Collected: 10/30/23 1607 Lab Status: Final result Specimen: Cath Tip from Chest, Right Updated: 11/01/23 0712 CATHETER CULTURE No growth at 2 days Blood Culture ID, PCR - Blood, Arm, Right [[id number]] Collected: 10/26/23 0500 Lab Status: Final result Specimen: Blood from Arm, Right Updated: 10/27/23 1658 BCID, PCR Negative by BCID PCR. Culture to Follow. BOTTLE TYPE Anaerobic Bottle MRSA Screen, PCR (Inpatient) - Swab, Nares [[id number]] (Normal) Collected: 10/26/23 0515 Lab Status: Final result Specimen: Swab from Nares Updated: 10/26/23 0958 MRSA PCR Negative Narrative: The negative predictive value of this diagnostic test is high and should only be used to consider de-escalating anti-MRSA therapy. A positive result may indicate colonization with MRSA and must be correlated clinically. 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, JEWEL BEARING FACER Swab in UTM/VTM, 2 HR TAT - Swab, Nasopharynx [[id number]] (Normal) Collected: 10/26/23 0515 Lab Status: Final [...] placement. 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 Debarker Operator: Victor Manuel Castro MD. Fire Warden: None Modality: Sonography and fluoroscopy DOSE REDUCTION: [...] stable condition. Complications: None immediate. Device: 14 Slovak x15 cm Dual- lumen nontunneled dialysis catheter [...] MD 11/01/2023 1:57 PM EDT Workstation ID: [id number] Current medications: Scheduled Meds:entecavir, 0.5 mg, Oral, [...] tunneled catheter follow-up with Dr. Sky at [facility]. Dialyzes 4 times a week. 2. Infected [...] DISEASE PROGRESS NOTE Aiden Stauffer Jr. 1975 [id number] Date of Consult: 10/27/2023 Admission Date: 10/25/2023 [...] Dr. 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 He was treated with Zosyn and Vancomycin.He was discharged home on oral cefuroxime and oral doxycycline for 4 days. He returned to [facility] ED on 10/24 for worsening pain, [...] LIGATION LEFT; Surgeon: Dontae Gruber MD; Location: [facility] OR; Service: Vascular; Laterality: Left; CARDIAC CATHETERIZATION times 2022 CHOLECYSTECTOMY ENDOSCOPY N/A 05/04/2020 Procedure: ESOPHAGOGASTRODUODENOSCOPY; Surgeon: Dewey Betancourt MD; Location: [facility]; Service: Gastroenterology; Laterality: N/A; LUMBAR LAMINECTOMY DISCECTOMY DECOMPRESSION N/A 04/29/2020 Procedure: LUMBAR LAMINECTOMY DISCECTOMY DECOMPRESSION POSTERIOR L4-5; Surgeon: Yinka Garnica MD; Location: [facility]; Service: Neurosurgery; Laterality: N/A; History reviewed. [...] Daily, Dontae Gruber MD, 0.25 mcg at 10/31/23 0834 carBAMazepine (TEGretol) tablet 200 mg, 200 mg, Oral, Nightly, Dontae Gruber MD, 200 mg at 10/30/23 204 carvedilol (COREG) tablet 25 mg, 25 mg, Oral, BID With Meals, Dontae Gruber MD, 25 mg at 10/31/23 0832 cefTRIAXone (ROCEPHIN) 2,000 mg in sodium chloride 0.9 % 100 mL MBP, 2,000 mg, Intravenous, Q24H, Giancarlo Valderrama PA, Last Rate: 200 mL/hr at 10/30/23 1734, 2,000 mg at 10/30/23 1734 cinacalcet (SENSIPAR) tablet 90 mg, 90 mg, Oral, Nightly, Dontae Gruber MD, 90 mg at 10/30/23 2048 cycloSPORINE modified (NEORAL) capsule 100 mg, 100 mg, Oral, BID, Dontae Gruber MD, 100 mg at 10/31/23 0834 dextrose (D50W) (25 g/50 mL) IV injection [...] Dontae Gruber MD, 145 mg at 10/31/23 0834 folic acid (FOLVITE) tablet 1,000 mcg, 1,000 [...] Dontae Gruber MD, 2 Units at 10/30/23 2046 melatonin tablet 5 mg, 5 mg, Oral, [...] % infusion 40 mL, 40 mL, Intravenous, PRFadumo, Dontae Gruber MD Antibiotics: Anti-Infectives (From admission, [...] Catheter Culture - Cath Tip, Chest, Right [[id number]] Collected: 10/30/23 1607 Lab Status: Preliminary result Specimen: Cath Tip from Chest, Right Updated: 10/31/23 0816 CATHETER CULTURE No growth Blood Culture - Blood, Hand, Right [[id number]] (Normal) Collected: 10/28/23 1342 Lab Status: Preliminary result Specimen: Blood from Hand, Right Updated: 10/30/23 1500 Blood Culture No growth at 2 days Blood Culture - Blood, Arm, Right [[id number]] (Normal) Collected: 10/28/23 1342 Lab Status: Preliminary result Specimen: Blood from Arm, Right Updated: 10/30/23 1500 Blood Culture No growth at 2 days Blood Culture - Blood, Hand, Right [[id number]] (Abnormal) Collected: 10/26/23 0536 Lab Status: Preliminary result Specimen: Blood from Hand, Right Updated: 10/31/23 0613 Blood Culture Gram Positive Cocci Comment: Sending other set to [facility] for ID and MICs Isolated from -- Gram Stain Aerobic Bottle Gram positive cocci in pairs and chains Narrative: Refer to previous blood culture collected on 10/26/2023 0500 for MICs Less than seven (7) mL's of blood was collected. Insufficient quantity may yield false negative results. 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, [employer]ER Swab in UTM/VTM, 2 HR TAT - Swab, Nasopharynx [[id number]] (Normal) Collected: 10/26/23 0515 Lab Status: Final [...] MRSA Screen, PCR (Inpatient) - Swab, Nares [[id number]] (Normal) Collected: 10/26/23 0515 Lab Status: Final result Specimen: Swab from Nares Updated: 10/26/23 0958 MRSA PCR Negative Narrative: The negative predictive value of this diagnostic test is high and should only be used to consider de-escalating anti-MRSA therapy. A positive result may indicate colonization with MRSA and must be correlated clinically. MRSA Negative Blood Culture - Blood, Arm, Right [[id number]] (Abnormal) Collected: 10/26/23 0500 Lab Status: Preliminary result Specimen: Blood from Arm, Right Updated: 10/31/23 0614 Blood Culture Gram Positive Cocci Comment: Sending to [facility] for ID and MICs Isolated from -- [...] Culture ID, PCR - Blood, Arm, Right [[id number]] Collected: 10/26/23 0500 Lab Status: Final result Specimen: Blood from Arm, Right Updated: 10/27/23 1658 BCID, PCR Negative by BCID PCR. Culture to Follow. BOTTLE TYPE Anaerobic Bottle Radiology: Imaging Results (Last 72 Hours) Procedure Component Value Units Date/Time IR Removal Tunnel CV Cath Without Port [[id number]] Collected: 10/30/23 1635 Updated: 10/31/23 1247 Narrative: IR REMOVAL TUNNEL CV CATH WO PORT History: bacteremia, immunocompromised Debarker Operator: Victor Manuel Castro MD. Modality: Not applicable. No sedation. Anesthesia: Lidocaine 1% Estimated blood loss: < 5 cc. Technique: A universal timeout was performed prior to starting the procedure. The graduating machine operator used personal protective equipment and sterile [...] MD 10/31/2023 12:44 PM EDT Workstation ID: [id number] Impression: - Left upper extremity atriovenous graft [...] from the original note were not included. [facility] Medicine Services PROGRESS NOTE Patient Name: Aiden [...] 0503 10/28/23 0439 10/27/23 0500 10/26/23 0703 10/26/233 SODIUM 131* 132* 132* 133* 134* < [...] Date/Time Blood Culture - Blood, Hand, Right [[id number]] (Normal) Collected: 10/28/23 1342 Lab Status: Preliminary result Specimen: Blood from Hand, Right Updated: 10/30/23 1500 Blood Culture No growth at 2 days Blood Culture - Blood, Arm, Right [[id number]] (Normal) Collected: 10/28/23 1342 Lab Status: Preliminary result Specimen: Blood from Arm, Right Updated: 10/30/23 1500 Blood Culture No growth at 2 days Blood Culture ID, PCR - Blood, Arm, Right [[id number]] Collected: 10/26/23 0500 Lab Status: Final result Specimen: Blood from Arm, Right Updated: 10/27/23 1658 BCID, PCR Negative by BCID PCR. Culture to Follow. BOTTLE TYPE Anaerobic Bottle MRSA Screen, PCR (Inpatient) - Swab, Nares [[id number]] (Normal) Collected: 10/26/23 0515 Lab Status: Final result Specimen: Swab from Nares Updated: 10/26/23 0958 MRSA PCR Negative Narrative: The negative predictive value of this diagnostic test is high and should only be used to consider de-escalating anti-MRSA therapy. A positive result may indicate colonization with MRSA and must be correlated clinically. 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, J[employer] FACER Swab in UTM/VTM, 2 HR TAT - Swab, Nasopharynx [[id number]] (Normal) Collected: 10/26/23 0515 Lab Status: Final [...] Status and Medical Interventions: Ordered at: 10/26/23 7099 Level Of Support Discussed With: Patient Code Status (Patient has no pulse and is not breathing): CPR (Attempt to Resuscitate) Medical Interventions (Patient has pulse or is breathing): Full Support Kevin Muller MD 10/31/23 * Scar Richardson MD - 10/30/2023 3:41 PM EDT Images from the original note were not included. . INFECTIOUS DISEASE PROGRESS NOTE Aiden Stauffer Jr. 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 He was treated with Zosyn and Vancomycin.He was discharged home on oral cefuroxime and oral doxycycline for 4 days. He returned to [facility] ED on 10/24 for worsening pain, [...] LIGATION LEFT; Surgeon: Dontae Gruber MD; Location: [facility]; Service: Vascular; Laterality: Left; CARDIAC CATHETERIZATION times 2022 CHOLECYSTECTOMY ENDOSCOPY N/A 05/04/2020 Procedure: ESOPHAGOGASTRODUODENOSCOPY; Surgeon: Dewey Betancourt MD; Location: [facility]; Service: Gastroenterology; Laterality: N/A; LUMBAR LAMINECTOMY DISCECTOMY DECOMPRESSION N/A 04/29/2020 Procedure: LUMBAR LAMINECTOMY DISCECTOMY DECOMPRESSION POSTERIOR L4-5; Surgeon: Yinka Garnica MD; Location: [facility]; Service: Neurosurgery; Laterality: N/A; History reviewed. [...] Dontae Gruber MD, 0.25 mcg at 10/30/23 120 carBAMazepine (TEGretol) tablet 200 mg, 200 mg, Oral, Nightly, Dontae Gruber MD, 200 mg at 10/29/232116 carvedilol (COREG) tablet 25 mg, 25 mg, Oral, BID With Meals, Dontae Gruber MD, 25 mg at 10/29/23 171 cinacalcet (SENSIPAR) tablet 90 mg, 90 mg, Oral, Nightly, Dontae Gruber MD, 90 mg at 10/29/23 2118 cycloSPORINE modified (NEORAL) capsule 100 mg, 100 mg, Oral, BID, Dontae Gruber MD, 100 mg at 10/30/23 1209 dextrose (D50W) (25 g/50 mL) IV injection 25 g, 25 g, Intravenous, Q15 Min PRN, Dontae Gruber MD dextrose (GLUTOSE) oral gel 15 g, 15 g, Oral, Q15 Min PRN, Dontae Gruber MD diphenhydrAMINE (BENADRYL) capsule 25 mg, 25 mg, Oral, Q6H PRN, Michelle Shore DO, 25 mg at 10/30/23 1529 fenofibrate (TRICOR) tablet 145 mg, 145 mg, Oral, Daily, Dontae Gruber MD, 145 mg at 10/30/23 1210 folic acid (FOLVITE) tablet 1,000 mcg, 1,000 mcg, Oral, Daily, Dontae Gruber MD, 1,000 mcg at 10/30/23 1208 gabapentin (NEURONTIN) capsule 300 mg, 300 mg, Oral, Nightly, Dontae Gruber MD, 300 mg at10/29/23 2116 glucagon (GLUCAGEN) injection 1 mg, 1 mg, Intramuscular, Q15 Min PRN, Dontae Gruber MD guaiFENesin (MUCINEX) 12 hr tablet 1,200 mg, 1,200 mg, Oral, Q12H, Michelle Shore DO, 1,200 mg at 10/30/23 1207 heparin (porcine) injection 2,000 Units, 2,000 Units, [...] BID, Dontae Gruber MD, 90 mg at 10/29/236 ondansetron (ZOFRAN) injection 4 mg, 4 mg, [...] Date/Time Blood Culture - Blood, Hand, Right [[id number]] (Normal) Collected: 10/28/23 1342 Lab Status: Preliminary result Specimen: Blood from Hand, Right Updated: 10/30/23 1500 Blood Culture No growth at 2 days Blood Culture - Blood, Arm, Right [[id number]] (Normal) Collected: 10/28/23 1342 Lab Status: Preliminary result Specimen: Blood from Arm, Right Updated: 10/30/23 1500 Blood Culture No growth at 2 days Blood Culture - Blood, Hand, Right [[id number]] (Abnormal) Collected: 10/26/23 0536 Lab Status: Preliminary result Specimen: Blood from Hand, Right Updated: 10/30/23 0629 Blood Culture Gram Positive Cocci Isolated from -- Gram Stain Aerobic Bottle Gram positive cocci in pairs and chains Narrative: Less than seven (7) mL's of blood was collected. Insufficient quantity may yield false negative results. 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, J[employer] FACER Swab in UTM/VTM, 2 HR TAT - Swab, Nasopharynx [[id number]] (Normal) Collected: 10/26/23 0515 Lab Status: Final [...] MRSA Screen, PCR (Inpatient) - Swab, Nares [[id number]] (Normal) Collected: 10/26/23 0515 Lab Status: Final result Specimen: Swab from Nares Updated: 10/26/23 0958 MRSA PCR Negative Narrative: The negative predictive value of this diagnostic test is high and should only be used to consider de-escalating anti-MRSA therapy. A positive result may indicate colonization with MRSA and must be correlated clinically. MRSA Negative Blood Culture - Blood, Arm, Right [[id number]] (Abnormal) Collected: 10/26/23 0500 Lab Status: Preliminary result Specimen: Blood from Arm, Right Updated: 10/30/23 0617 Blood Culture Gram Positive Cocci Isolated from -- Gram Stain Anaerobic Bottle Gram positive cocci in pairs and chains Narrative: Less than seven (7) mL's of blood was collected. Insufficient quantity may yield false negative results. Blood Culture ID, PCR - Blood, Arm, Right [[id number]] Collected: 10/26/23 0500 Lab Status: Final result Specimen: Blood from Arm, Right Updated: 10/27/23 1658 BCID, PCR Negative by BCID PCR. Culture to Follow. BOTTLE TYPE Anaerobic Bottle Radiology: Imaging Results (Last 72 Hours) Procedure Component Value Units Date/Time CT Abdomen Pelvis Without Contrast [[id number]] Collected: 10/27/232101 Updated: 10/27/232110 Narrative: CT ABDOMEN [...] MD 10/27/2023 9:08 PM EDT Workstation ID: [id number] Impression: - Left upper extremity atriovenous graft [...] Ruvalcaba 10/30/2023 15:41 EDT * Genevieve Vaughn [facility] - 10/30/2023 2:15 PM EDT Images from [...] Date/Time Blood Culture - Blood, Hand, Right [[id number]] (Normal) Collected: 10/28/23 1342 Lab Status: Preliminary result Specimen: Blood from Hand, Right Updated: 10/29/23 1501 Blood Culture No growth at 24 hours Blood Culture - Blood, Arm, Right [[id number]] (Normal) Collected: 10/28/23 1342 Lab Status: Preliminary result Specimen: Blood from Arm, Right Updated: 10/29/23 1501 Blood Culture No growth at 24 hours Blood Culture - Blood, Hand, Right [[id number]] (Abnormal) Collected: 10/26/23 0536 Lab Status: Preliminary result Specimen: Blood from Hand, Right Updated: 10/29/23 0625 Blood Culture Gram Positive Cocci Isolated from -- Gram Stain Aerobic Bottle Gram positive cocci in pairs and chains Narrative: Less than seven (7) mL's of blood was collected. Insufficient quantity may yield false negative results. 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, JEWEL [employer] FACER Swab in UTM/VTM, 2 HR TAT - Swab, Nasopharynx [[id number]] (Normal) Collected: 10/26/23 0515 Lab Status: Final [...] MRSA Screen, PCR (Inpatient) - Swab, Nares [[id number]] (Normal) Collected: 10/26/23 0515 Lab Status: Final result Specimen: Swab from Nares Updated: 10/26/23 0958 MRSA PCR Negative Narrative: The negative predictive value of this diagnostic test is high and should only be used to consider de-escalating anti-MRSA therapy. A positive result may indicate colonization with MRSA and must be correlated clinically. MRSA Negative Blood Culture - Blood, Arm, Right [[id number]] (Abnormal) Collected: 10/26/23 0500 Lab Status: Preliminary result Specimen: Blood from Arm, Right Updated: 10/29/23 0624 Blood Culture Gram Positive Cocci Isolated from -- Gram Stain Anaerobic Bottle Gram positive cocci in pairs and chains Narrative: Less than seven (7) mL's of blood was collected. Insufficient quantity may yield false negative results. Blood Culture ID, PCR - Blood, Arm, Right [[id number]] Collected: 10/26/23 0500 Lab Status: Final result [...] Vaughn PharmD 10/30/2023 14:12 EDT * Michelle Shore DO - 10/30/2023 10:17 AM EDT Images from the original note were not included. [facility] Medicine Services PROGRESS NOTE Patient Name: Aiden [...] Date/Time Blood Culture - Blood, Hand, Right [[id number]] (Normal) Collected: 10/28/23 1342 Lab Status: Preliminary result Specimen: Blood from Hand, Right Updated: 10/29/23 1501 Blood Culture No growth at 24 hours Blood Culture - Blood, Arm, Right [[id number]] (Normal) Collected: 10/28/23 1342 Lab Status: Preliminary result Specimen: Blood from Arm, Right Updated: 10/29/23 1501 Blood Culture No growth at 24 hours Blood Culture ID, PCR - Blood, Arm, Right [[id number]] Collected: 10/26/23 0500 Lab Status: Final result Specimen: Blood from Arm, Right Updated: 10/27/23 1658 BCID, PCR Negative by BCID PCR. Culture to Follow. BOTTLE TYPE Anaerobic Bottle MRSA Screen, PCR (Inpatient) - Swab, Nares [[id number]] (Normal) Collected: 10/26/23 0515 Lab Status: Final result Specimen: Swab from Nares Updated: 10/26/23 0958 MRSA PCR Negative Narrative: The negative predictive value of this diagnostic test is high and should only be used to consider de-escalating anti-MRSA therapy. A positive result may indicate colonization with MRSA and must be correlated clinically. 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, J[employer] FACER Swab in UTM/VTM, 2 HR TAT - Swab, Nasopharynx [[id number]] (Normal) Collected: 10/26/23 0515 Lab Status: Final [...] display. Brief Hospital Course to date: Aiden Jaime Eh Marques is a 48 y.o. male with history [...] Status and Medical Interventions: Ordered at: 10/26/23 2418 Level Of Support Discussed With: Patient Code [...] tunneled catheter follow-up with Dr. Sky at [facility]. Dialyzes 4 times a week. 2. 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 He was treated with Zosyn and Vancomycin.He was discharged home on oral cefuroxime and oral doxycycline for 4 days. He returned to [facility] ED on 10/24 for worsening pain, [...] Dontae Gruber MD, 0.5 mg at 10/28/23 1852 aspirin chewable tablet 81 mg, 81 mg, Oral, Daily, Dontae Gruber MD, 81 mg at 10/29/23 0813 sennosides-docusate (PERICOLACE) 8.6-50 MG per tablet 2 [...] Meals, Dontae Gruber MD, 25 mg at 10/29/23812 cinacalcet (SENSIPAR) tablet 90 mg, 90 mg, Oral, Nightly, Dontae Gruber MD, 90 mg at 10/28/232029 cycloSPORINE modified (NEORAL) capsule 100 mg, 100 mg, Oral, BID, Dontae Gruber MD, 100 mg at 10/29/23813 dextrose (D50W) (25 g/50 mL) IV injection 25 g, 25 g, Intravenous, Q15 Min PRN, Dontae Gruber MD dextrose (GLUTOSE) oral gel 15 g, 15 g, Oral, Q15 Min PRN, Dontae Gruber MD diphenhydrAMINE (BENADRYL) capsule 25 mg, 25 mg, Oral, Q6H PRN, Michelle Shore DO, 25 mg at 10/29/23210 fenofibrate (TRICOR) tablet 145 mg, 145 mg, Oral, Daily, Dontae Gruber MD, 145 mg at 10/29/23813 folic acid (FOLVITE) tablet 1,000 mcg, 1,000 mcg, Oral, Daily, Dontae Gruber MD, 1,000 mcg at 10/29/23812 gabapentin (NEURONTIN) capsule 300 mg, 300 mg, Oral, Nightly, Dontae Gruber MD, 300 mg at10/28/232027 glucagon (GLUCAGEN) injection 1 mg, 1 mg, [...] Dontae Gruber MD, 2 Units at 10/29/23 08 melatonin tablet 5 mg, 5 mg, Oral, [...] PRN, Michelle Shore DO, 1 tablet at 10/29/23 0813 pantoprazole (PROTONIX) EC tablet 40 mg, 40 mg, Oral, Q AM, Dontae Gruber MD, 40 mg at 10/29/23 042 Pharmacy to dose vancomycin, , Does not [...] Date/Time Blood Culture - Blood, Hand, Right [[id number]] (Abnormal) Collected: 10/26/23 0536 Lab Status: Preliminary result Specimen: Blood from Hand, Right Updated: 10/29/23 06 Blood Culture Gram Positive Cocci Isolated from -- Gram Stain Aerobic Bottle Gram positive cocci in pairs and chains Narrative: Less than seven (7) mL's of blood was collected. Insufficient quantity may yield false negative results. 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, JEWEL [employer]ARING FACER Swab in UTM/MIM, 2 HR TAT - Swab, Nasopharynx [[id number]] (Normal) Collected: 10/26/23 0515 Lab Status: Final [...] MRSA Screen, PCR (Inpatient) - Swab, Nares [[id number]] (Normal) Collected: 10/26/23 0515 Lab Status: Final result Specimen: Swab from Nares Updated: 10/26/23 0958 MRSA PCR Negative Narrative: The negative predictive value of this diagnostic test is high and should only be used to consider de-escalating anti-MRSA therapy. A positive result may indicate colonization with MRSA and must be correlated clinically. MRSA Negative Blood Culture - Blood, Arm, Right [[id number]] (Abnormal) Collected: 10/26/23 0500 Lab Status: Preliminary result Specimen: Blood from Arm, Right Updated: 10/29/23 0624 Blood Culture Gram Positive Cocci Isolated from -- Gram Stain Anaerobic Bottle Gram positive cocci in pairs and chains Narrative: Less than seven (7) mL's of blood was collected. Insufficient quantity may yield false negative results. Blood Culture ID, PCR - Blood, Arm, Right [[id number]] Collected: 10/26/23 0500 Lab Status: Final result Specimen: Blood from Arm, Right Updated: 10/27/23 1658 BCID, PCR Negative by BCID PCR. Culture to Follow. BOTTLE TYPE Anaerobic Bottle Radiology: Imaging Results (Last 72 Hours) Procedure Component Value Units Date/Time CT Abdomen Pelvis Without Contrast [[id number]] Collected: 10/27/232101 Updated: 10/27/232110 Narrative: CT ABDOMEN [...] MD 10/27/2023 9:08 PM EDT Workstation ID: [id number] Impression: - Left upper extremity atriovenous graft [...] for asking us to see Aiden Stauffer ., I recommend the following: - Follow blood [...] tunneled catheter follow-up with Dr. Sky at [facility]. Patient last dialyzed on Monday. Dialyzes 4 [...] Wong MD 10/29/23 09:44 EDT * Michelle Shore, DO - 10/29/2023 9:36 AM EDT Images from the original note were not included. [facility] Medicine Services PROGRESS NOTE Patient Name: Aiden [...] 10/28/23 0439 10/27/23 0500 10/26/23 1423 10/26/23 0710/26/23 0033 SODIUM 132* 133* 134* -- 141 [...] Culture ID, PCR - Blood, Arm, Right [[id number]] Collected: 10/26/23 0500 Lab Status: Final result Specimen: Blood from Arm, Right Updated: 10/27/23 1658 BCID, PCR Negative by BCID PCR. Culture to Follow. BOTTLE TYPE Anaerobic Bottle MRSA Screen, PCR (Inpatient) - Swab, Nares [[id number]] (Normal) Collected: 10/26/23 0515 Lab Status: Final result Specimen: Swab from Nares Updated: 10/26/23 0958 MRSA PCR Negative Narrative: The negative predictive value of this diagnostic test is high and should only be used to consider de-escalating anti-MRSA therapy. A positive result may indicate colonization with MRSA and must be correlated clinically. 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, JEWEL BEARING FACER Swab in UTM/VTM, 2 HR TAT - Swab, Nasopharynx [[id number]] (Normal) Collected: 10/26/23 0515 Lab Status: Final [...] MD 10/27/2023 9:08 PM EDT Workstation ID: [id number] Current medications: Scheduled Meds:[START ON 11/02/2023] entecavir, [...] display. Brief Hospital Course to date: Aiden Jaime Eh Marques is a 48 y.o. male with history of DM2, KIM cirrhosis status post liver transplant (2018) on chronic immunosuppression, ESRD on HD, prior [...] Status and Medical Interventions: Ordered at: 10/26/23 6586 Level Of Support Discussed With: Patient Code Status (Patient has no pulse and is not breathing): CPR (Attempt to Resuscitate) Medical Interventions (Patient has pulse or is breathing): Full Support Michelle Shore DO 10/29/23 * Scar Richardson MD - 10/28/2023 12:24 PM EDT Images from the original note were not included. . INFECTIOUS DISEASE PROGRESS NOTE Aiden Stauffer Jr. 1975 [id number] Date of Consult: 10/27/2023 Admission Date: 10/25/2023 [...] Dr. 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 He was treated with Zosyn and Vancomycin.He was discharged home on oral cefuroxime and oral doxycycline for 4 days. He returned to [facility] ED on 10/24 for worsening pain, [...] Dontae Gruber MD, 0.25 mcg at 10/28/23 0847 carBAMazepine (TEGretol) tablet 200 mg, 200 mg, Oral, Nightly, Dontae Gruber MD, 200 mg at 10/27/232013 carvedilol (COREG) tablet 25 mg, 25 mg, Oral, BID With Meals, Dontae Gruber MD, 25 mg at 10/28/23 08 cinacalcet (SENSIPAR) tablet 90 mg, 90 mg, Oral, Nightly, Dontae Gruber MD, 90 mg at 10/27/232100 cycloSPORINE modified (NEORAL) capsule 100 mg, 100 mg, Oral, BID, Dontae Gruber MD, 100 mg at 10/28/23 08 dextrose (D50W) (25 g/50 mL) IV injection [...] TID, Dontae Gruber MD, 100 mg at 10/28/23 0516 HYDROmorphone (DILAUDID) injection 0.5 mg, 0.5 mg, Intravenous, Q2H PRN, Dontae Gruber MD, 0.5 mg at 10/28/23 1014 Insulin Lispro (humaLOG) injection 2-7 Units, 2-7 Units, Subcutaneous, 4x Daily AC & at Bedtime, Dontae Gruber MD, 2 Units at 10/27/23 210 melatonin tablet 5 mg, 5 mg, Oral, [...] PRN, Dontae Gruber MD, 4 mg at 10/27/23 195 oxyCODONE-acetaminophen (PERCOCET) 5-325 MG per tablet 1 [...] Date/Time Blood Culture - Blood, Hand, Right [[id number]] (Abnormal) Collected: 10/26/23 05 Lab Status: Preliminary result Specimen: Blood from Hand, Right Updated: 10/28/23616 Blood Culture Abnormal Stain Gram Stain Aerobic Bottle Gram positive cocci in pairs and chains Narrative: Less than seven (7) mL's of blood was collected. Insufficient quantity may yield false negative results. 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, JEWEL BEARING FACER Swab in [facility], 2 HR TAT - Swab, Nasopharynx [[id number]] (Normal) Collected: 10/26/23 05 Lab Status: Final [...] MRSA Screen, PCR (Inpatient) - Swab, Nares [[id number]] (Normal) Collected: 10/26/23 0515 Lab Status: Final result Specimen: Swab from Nares Updated: 10/26/23 0958 MRSA PCR Negative Narrative: The negative predictive value of this diagnostic test is high and should only be used to consider de-escalating anti-MRSA therapy. A positive result may indicate colonization with MRSA and must be correlated clinically. MRSA Negative Blood Culture - Blood, Arm, Right [[id number]] (Abnormal) Collected: 10/26/23 0500 Lab Status: Preliminary result Specimen: Blood from Arm, Right Updated: 10/28/23 0617 Blood Culture Abnormal Stain Gram Stain Anaerobic Bottle Gram positive cocci in pairs and chains Narrative: Less than seven (7) mL's of blood was collected. Insufficient quantity may yield false negative results. Blood Culture ID, PCR - Blood, Arm, Right [[id number]] Collected: 10/26/23 0500 Lab Status: Final result Specimen: Blood from Arm, Right Updated: 10/27/23 1658 BCID, PCR Negative by BCID PCR. Culture to Follow. BOTTLE TYPE Anaerobic Bottle Radiology: Imaging Results (Last 72 Hours) Procedure Component Value Units Date/Time CT Abdomen Pelvis Without Contrast [[id number]] Collected: 10/27/232101 Updated: 10/27/232110 Narrative: CT ABDOMEN [...] MD 10/27/2023 9:08 PM EDT Workstation ID: [id number] XR Chest 1 View [[id number]] Collected: 10/25/232319 Updated: 10/25/232324 Narrative: XR CHEST [...] MD 10/25/2023 11:22 PM EDT Workstation ID: [id number] Impression: - Left upper extremity atriovenous graft [...] NAVNEET Ruvalcaba 10/28/2023 12:24 EDT * Michelle Shore DO - 10/28/2023 11:07 AM EDT Images from the original note were not included. [facility] Medicine Services PROGRESS NOTE Patient Name: Aiden [...] Culture ID, PCR - Blood, Arm, Right [[id number]] Collected: 10/26/23 0500 Lab Status: Final result Specimen: Blood from Arm, Right Updated: 10/27/23 1658 BCID, PCR Negative by BCID PCR. Culture to Follow. BOTTLE TYPE Anaerobic Bottle MRSA Screen, PCR (Inpatient) - Swab, Nares [[id number]] (Normal) Collected: 10/26/23 0515 Lab Status: Final result Specimen: Swab from Nares Updated: 10/26/23 0958 MRSA PCR Negative Narrative: The negative predictive value of this diagnostic test is high and should only be used to consider de-escalating anti-MRSA therapy. A positive result may indicate colonization with MRSA and must be correlated clinically. 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, JEWEL BEARING FACER Swab in UTM/VTM, 2 HR TAT - Swab, Nasopharynx [[id number]] (Normal) Collected: 10/26/23 0515 Lab Status: Final [...] MD 10/27/2023 9:08 PM EDT Workstation ID: [id number] Current medications: Scheduled Meds:[START ON 11/02/2023] entecavir, [...] Documented at 10/25/20232227 I/O this shift: In: 440 [P.O.:240; IV [...] tunneled catheter follow-up with Dr. Sky at [facility]. Patient last dialyzed on Monday. Dialyzes 4 [...] Wong MD 10/28/23 10:50 EDT * Gia Hernandez, [facility] - 10/27/2023 3:41 PM EDT Pharmacy Consult-Vancomycin Dosing Aiden Stauffer Jr. is a 48 y.o. male receiving vancomycin therapy. Mr. Stauffer has ESRD and is on hemodialysis Indication: SSTI Consulting Provider: hospitalist ID Consult: No Goal Trough: 10-15 Current Antimicrobial Therapy Anti-Infectives (From admission, onward) Ordered Dose/Rate Route Frequency Start Stop 10/26/23 1215 *Patient Supplied* entecavir (BARACLUDE) tablet 0.5 mg Ordering Provider: Jnenifer Davison MD 0.5 mg Oral Weekly 11/02/23 0900 10/27/23 1531 vancomycin IVPB 2000 mg in 0.9% Sodium Chloride 500 mL Ordering Provider: Gia Hernandez RPH 15 mg/kg ?? 136 kg 250 mL/hr [...] Date/Time Blood Culture - Blood, Hand, Right [[id number]] (Normal) Collected: 10/26/23 0536 Lab Status: Preliminary result Specimen: Blood from Hand, Right Updated: 10/27/23 0645 Blood Culture No growth at 24 hours Narrative: Less than seven (7) mL's of blood was collected. Insufficient quantity may yield false negative results. 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, JEWEL BEARING FACER Swab in UTM/VTM, 2 HR TAT - Swab, Nasopharynx [[id number]] (Normal) Collected: 10/26/23 0515 Lab Status: Final [...] MRSA Screen, PCR (Inpatient) - Swab, Nares [[id number]] (Normal) Collected: 10/26/23 0515 Lab Status: Final result Specimen: Swab from Nares Updated: 10/26/23 0958 MRSA PCR Negative Narrative: The negative predictive value of this diagnostic test is high and should only be used to consider de-escalating anti-MRSA therapy. A positive result may indicate colonization with MRSA and must be correlated clinically. MRSA Negative Blood Culture - Blood, Arm, Right [[id number]] (Normal) Collected: 10/26/23 0500 Lab Status: Preliminary [...] will continue to follow Gia Hernandez PharmD [facility] [employer] 10/27/2023 15:41 EDT * Darling Gutierrez, ,RD,LD - 10/27/2023 3:08 PM EDT Nutrition Services Patient Name: Aiden Stauffer Jr. Date of : 1975 Admit Date: 10/25/2023 Pt screened for MST 2-unsure wt loss. Pt does not appear to have had recent wt loss (noted stated/estimated wt available). Pt does not otherwise meet nutrition risk screen criteria. RD to follow per protocol. Please consult for specific needs. Electronically signed by: Darling Gutierrez, MS,RD,LD 10/27/23 15:08 EDT * Dontae Gruber MD [...] (SGOT) U/L 12 GLUCOSE mg/dL 173* Coagulation Okay PTT Date Value Ref Range Status 10/26/2023 29.0 (L) 60.0 - 90.0 seconds Final INR Date Value Ref Range Status 10/26/2023 1.08 0.89 - 1.12 Final Protime Date Value Ref Range Status 10/26/2023 14.2 12.2 - 14.5 Seconds Final No components found for: ECHO * Michelle Shore DO - 10/27/2023 12:36 PM EDT Images from the original note were not included. [facility] Medicine Services PROGRESS NOTE Patient Name: Aiden [...] Date/Time Blood Culture - Blood, Hand, Right [[id number]] (Normal) Collected: 10/26/23 0536 Lab Status: Preliminary result Specimen: Blood from Hand, Right Updated: 10/27/23644 Blood Culture No growth at 24 hours Narrative: Less than seven (7) mL's of blood was collected. Insufficient quantity may yield false negative results. Blood Culture - Blood, Arm, Right [[id number]] (Normal) Collected: 10/26/23 0500 Lab Status: Preliminary result Specimen: Blood from Arm, Right Updated: 10/27/2345 Blood Culture No growth at 24 hours Narrative: Less than seven (7) mL's of blood was collected. Insufficient quantity may yield false negative results. MRSA Screen, PCR (Inpatient) - Swab, Nares [[id number]] (Normal) Collected: 10/26/23 0515 Lab Status: Final result Specimen: Swab from Nares Updated: 10/26/23 0958 MRSA PCR Negative Narrative: The negative predictive value of this diagnostic test is high and should only be used to consider de-escalating anti-MRSA therapy. A positive result may indicate colonization with MRSA and must be correlated clinically. 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, JEWEL BEARING FACER Swab in UTM/VTM, 2 HR TAT - Swab, Nasopharynx [[id number]] (Normal) Collected: 10/26/23514 Lab Status: Final result [...] MD 10/25/2023 11:22 PM EDT Workstation ID: [id number] Current medications: Scheduled Meds:[START ON 11/02/2023] entecavir, [...] display. Brief Hospital Course to date: Aiden Jaime Eh Marques is a 48 y.o. male with history of DM2, KIM cirrhosis status post liver transplant (2018) on chronic immunosuppression, ESRD on HD, prior [...] pulse or is breathing): Full Support Michelle Shore, 10/27/23 * Kody Wong MD - 10/27/2023 [...] tunneled catheter follow-up with Dr. Sky at [facility]. Patient last dialyzed on Monday. Dialyzes 4 [...] from the original note were not included. [facility] Medicine Services ADMISSION FOLLOW-UP NOTE Patient admitted after midnight, H&P by my partner performed earlier on today's date reviewed. Interim findings, labs, and charting also reviewed. [facility] Problem List has been managed and [...] recs first -K 5.8 on admission s/p Neva; repeat lab 5.4, currently getting dialysis -Follow-up [...] 2nd or 3rd inpatient dialysis session. Chito Lowe PharmD, [facility] 10/26/2023 05:16 EDT documented in this encounter [...] kg (300 lb) Documented at 10/25/2023 2228 I/O this shift: In: 600 [P.O.:600] Out: [...] tunneled catheter follow-up with Dr. Sky at [facility]. Dialyzes 4 times a week. 2. Infected [...] from the original note were not included. [facility] Medicine Services HISTORY AND PHYSICAL Patient Name: Aiden Stauffer Jr. : 1975 Primary Care Physician: Edgar Fournier MD Date of admission: 10/25/2023 Subjective Subjective Chief Complaint: Pain at fistula sight HPI: Aiden Stauffer Jr. is a 48 y.o. male with a past medical history significant for T2DM, KIM cirrhosis s/p liver transplant in 2018 on chronic immunosuppression, ESRD on HD, h/o [...] FISTULA Left 2019 ??? CARDIAC CATHETERIZATION times 3 2022 ??? CHOLECYSTECTOMY ??? ENDOSCOPY N/A 05/04/2020 Procedure: ESOPHAGOGASTRODUODENOSCOPY; Surgeon: Dewey Betancourt MD; Location: [facility]; Service: Gastroenterology; Laterality: N/A; ??? LUMBAR LAMINECTOMY DISCECTOMY DECOMPRESSION N/A 04/29/2020 Procedure: LUMBAR LAMINECTOMY DISCECTOMY DECOMPRESSION POSTERIOR L4-5; Surgeon: Yinka Garnica MD; Location: [facility]; Service: Neurosurgery; Laterality: N/A; Family History: [...] 35.7. Cxr shows pneumonia LAB RESULTS: Lab 10/26/233 10/23/23 1011 WBC 5.33 3.8 HEMOGLOBIN 11.3* 11.6* HEMATOCRIT 35.7* 35.4* PLATELETS 250 219 NEUTROS ABS 3.38 2,557 IMMATURE GRANS (ABS) 0.19* -- LYMPHS ABS 1.09 -- MONOS ABS 0.46 110* EOS ABS 0.18 144 MCV 99.7* 99.5 PROCALCITONIN 0.44* -- LACTATE 0.7 -- PROTIME 14.2 -- APTT 29.0* -- Lab 10/26/23 003 SODIUM 142 POTASSIUM 5.8* CHLORIDE 102 CO2 22.0 ANION GAP 18.0* BUN 60* CREATININE 9.74* EGFR 6.0* GLUCOSE 104* CALCIUM 8.8 MAGNESIUM 1.9 Lab 10/26/233 10/23/23 1011 TOTAL PROTEIN 7.0 6.8 ALBUMIN [...] MD 10/25/2023 11:22 PM EDT Workstation ID: [id number] Assessment & Plan Assessment & Plan Arm [...] Admission Attestation I have performed an independent [id number]-taac diagnostic evaluation including performing an independent physical examination. I approve of the documented plan of care above that was reviewed and developed with the advanced practice or student teacher (APC) and take responsibility for that plan [...] INFECTIOUS DISEASE CONSULT/INITIAL HOSPITAL VISIT Aiden Stauffer JrUbaldo 1975 [id number] Date of Consult: 10/27/2023 Admission Date: 10/25/2023 Requesting Provider: Michelle Shore DO Evaluating Physician: Scar Richardson MD Reason for Consultation: Infected AVF, immunocompromised patient. History of present illness: Patient is a 48 y.o. male with h/o T2DM, ESRD/HD/temporary dialysis cath 08/11/23/LUE AVF malfunctioning since 08/10/23, morbid obesity, KIM liver cirrhosis s/p liver transplant 2018 on chronic immunosuppression with Cyclosporine and CellCept/Hep B liver/on Entecavir, on and discitis/epidural abscess/laminectomy/I and D 2019 (treated by Dr. 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 He was treated with Zosyn and Vancomycin.He was discharged home on oral cefuroxime and oral doxycycline for 4 days. He returned to [facility] ED on 10/24 for worsening pain, [...] POSTERIOR L4-5; Surgeon: Yinka Garnica MD; Location: [facility]; Service: Neurosurgery; Laterality: N/A; History reviewed. [...] Daily, Jayce Irizarry PA-C, 0.25 mcg at 10/27/23 0822 carBAMazepine (TEGretol) tablet 200 mg, 200 mg, Oral, Nightly, Ricci Irizarryia L, PA-C, 200 mg at 10/26/23 2309 carvedilol (COREG) tablet 25 mg, 25 mg, Oral, BID With Meals, Juan C, Wildernicia L, PA-C, 25 mg at 10/27/23 0821 [Transfer Hold] cinacalcet (SENSIPAR) tablet 90 mg, 90 mg, Oral, Nightly, Ricci Irizarryia L, PA-C, 90 mg at 10/26/23 2309 [Transfer Hold] cycloSPORINE modified (NEORAL) capsule 100 mg, 100 mg, Oral, BID, Jennifer Davison MD,100 mg at 10/27/23 0823 [Transfer Hold] dextrose (D50W) (25 g/50 mL) IV injection 25 g, 25 g, Intravenous, Q15 Min PRN, Bernadette, Beulah G, DO [Transfer Hold] dextrose (GLUTOSE) oral gel 15 g, 15 g, Oral, Q15 Min PRN, Bernadette Beulah G, DO [Transfer Hold] fenofibrate (TRICOR) tablet 145 mg, 145 mg, Oral, Daily, Ricci Irizarryia L, PA-C, 145 mg at 10/27/23 0823 [Transfer Hold] folic acid (FOLVITE) tablet 1,000 mcg, 1,000 mcg, Oral, Daily, Rcici Irizarryia L, PA-C, 1,000 mcg at 10/27/23 0821 gabapentin (NEURONTIN) capsule 300 mg, 300 mg, Oral, Nightly, Bernadette, Beulah G, DO, 300 mg at 10/26/23 2142 [Transfer Hold] glucagon (GLUCAGEN) injection 1 mg, 1 mg, Intramuscular, Q15 Min PRN, Bernadette JosieG, DO [Transfer Hold] heparin (porcine) injection 2,000 Units, 2,000 Units, Intracatheter, PRN, Kody Wong MD, 2,000 Units at 10/26/23 1357 hydrALAZINE (APRESOLINE) tablet 100 mg, 100 mg, Oral, TID, Ricci Irizarryia L, PA-C, 100 mg at 10/27/23 0438 [Transfer Hold] HYDROmorphone (DILAUDID) injection 0.5 mg, 0.5 mg, Intravenous, Q2H PRN, Michelle Shore, DO [Transfer Hold] Insulin Lispro (humaLOG) injection 2-7 Units, 2-7 Units, Subcutaneous, 4x Daily AC & at Bedtime, Beulah Fleming, DO, 3 Units at 10/26/23 2144 [Transfer [...] 40 mg, 40 mg, Oral, Q AM, Jayce Irizarry PA-C, 40 mg at 10/27/23 0438 Pharmacy to dose vancomycin, , Does not apply, Continuous PRN, Beulah Fleming G, DO piperacillin-tazobactam (ZOSYN) 4.5 g IVPB in 100 mL NS MBP (CD), 4.5 g, Intravenous, Q12H, Beulah Fleming G, DO, Currently Infusing at 10/27/23 0811 [Transfer Hold] promethazine (PHENERGAN) tablet 12.5 mg, 12.5 mg, Oral, Q6H PRN, 12.5 mg at 10/27/23 1007 OR [Transfer Hold] promethazine (PHENERGAN) suppository 12.5 mg, 12.5 mg, Rectal, Q6H PRN, Beulah Fleming DO [COMPLETED] Insert Peripheral IV, , , Once AND [Transfer Hold] sodium chloride 0.9 % flush 10 mL, 10 mL, Intravenous, PRN, Terry Bugress MD [Transfer Hold] sodium chloride 0.9 % flush 10 mL, 10 mL, Intravenous, Q12H, Jayce Irizarry, PA-C, 10 mL at 10/27/23 0824 [Transfer Hold] sodium chloride 0.9 % flush 10 mL, 10 mL, Intravenous, PRN, Wilder Irizarrynicia L, PA-C [Transfer Hold] sodium chloride 0.9 % infusion 40 mL, 40 mL, Intravenous, PRN, Juan C, Bennicia L, PA-C vancomycin (dosing per levels), , [...] 0350 Pharmacy to dose vancomycin Ordering Provider: Bernadette, Beulah G, DO Does not apply Continuous PRN 10/26/23 0349 10/31/23 0348 10/26/23 0305 vancomycin 2750 mg/500 mL 0.9% NS IVPB ([facility]) Ordering Provider: Terry Burgess MD 20 [...] Date/Time Blood Culture - Blood, Hand, Right [[id number]] (Normal) Collected: 03/14/24 0536 Lab Status: Preliminary result Specimen: Blood from Hand, Right Updated: 10/27/23644 Blood Culture No growth at 24 hours Narrative: Less than seven (7) mL's of blood was collected. Insufficient quantity may yield false negative results. 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, JEWEL BEARING FACER Swab in UTM/VTM, 2 HR TAT - Swab, Nasopharynx [[id number]] (Normal) Collected: 10/26/23514 Lab Status: Final result [...] MRSA Screen, PCR (Inpatient) - Swab, Nares [[id number]] (Normal) Collected: 10/26/23514 Lab Status: Final result Specimen: Swab from Nares Updated: 10/26/23 09 MRSA PCR Negative Narrative: The negative predictive value of this diagnostic test is high and should only be used to consider de-escalating anti-MRSA therapy. A positive result may indicate colonization with MRSA and must be correlated clinically. MRSA Negative Blood Culture - Blood, Arm, Right [[id number]] (Normal) Collected: 10/26/23 0500 Lab Status: Preliminary result Specimen: Blood from Arm, Right Updated: 10/27/23644 Blood Culture No growth at 24 hours Narrative: Less than seven (7) mL's of blood was collected. Insufficient quantity may yield false negative results. Radiology: Imaging Results (Last 72 Hours) Procedure Component Value Units Date/Time XR Chest 1 View [[id number]] Collected: 10/25/232319 Updated: 10/25/232324 Narrative: XR CHEST [...] MD 10/25/2023 11:22 PM EDT Workstation ID: [id number] Impression: - Left upper extremity atriovenous graft [...] Consultation Note Date of Service: 10/26/2023 Aiden Stauffer Jr. [id number] 1975 Referring Provider: Jennifer Davison MD Location of Consult: Inpatient Reason for Consultation: Aneurysmal radiocephalic fistula, questionable infection. History of Present Illness: I am seeing, Aiden Stauffer , in consultation for Jennifer Davison MD regarding [...] Surgical History: ARTERIOVENOUS FISTULA CARDIAC CATHETERIZATION times 2022 CHOLECYSTECTOMY ENDOSCOPY Procedure: ESOPHAGOGASTRODUODENOSCOPY; Surgeon: Dewey Betancourt MD; Location: [facility] BEDS AT [facility]; Service: Gastroenterology; Laterality: N/A; LUMBAR LAMINECTOMY DISCECTOMY DECOMPRESSION Procedure: LUMBAR LAMINECTOMY DISCECTOMY DECOMPRESSION POSTERIOR L4-5; Surgeon: Yinka Garnica MD; Location: [facility]; Service: Neurosurgery; Laterality: N/A; Allergies Allergen Reactions [...] with meals. cholecalciferol (VITAMIN D3) 1.25 MG (99757 UT) capsule Take 1 capsule by mouth [...] 0 [DISCONTINUED] vitamin D (ERGOCALCIFEROL) 1.25 MG (24679 UT) capsule capsule Take 1 capsule by [...] 10 mg, Rectal, Daily PRN, Jayce Irizarry L, PA-C calcitriol (ROCALTROL) capsule 0.25 mcg, 0.25 mcg, Oral, Daily, Jayce Irizarry, PA-C, 0.25 mcg at 10/26/23 09 carBAMazepine (TEGretol) tablet 200 mg, 200 mg, Oral, Nightly, Ricci Irizarryia L, PA-C carvedilol (COREG) tablet 25 mg, 25 mg, Oral, BID With Meals, Jayce Irizarry, PA-C, 25 mg at 10/26/23 165 cinacalcet (SENSIPAR) tablet 90 mg, 90 mg, Oral, Nightly, Ricci Irizarryia L, PA-C cycloSPORINE modified (NEORAL) capsule 100 mg, 100 mg, Oral, BID, Jennifer Davison MD dextrose (D50W) (25 g/50 mL) IV injection 25 g, 25 g, Intravenous, Q15 Min PRN, Bernadette, Beulah G, DO dextrose (GLUTOSE) oral gel 15 g, 15 g, Oral, Q15 Min PRN, Bernadette Beulah G, DO fenofibrate (TRICOR) tablet 145 mg, 145 mg, Oral, Daily, Jayce Irizarry L, PA- C, 145 mg at 10/26/23 0921 folic acid (FOLVITE) tablet 1,000 mcg, 1,000 mcg, Oral, Daily, Jayce Irizarry, PA-C, 1,000 mcg at 10/26/23 0919 gabapentin (NEURONTIN) capsule 300 mg, 300 mg, Oral, Nightly, Bernadette, Beulah G, DO glucagon (GLUCAGEN) injection 1 mg, 1 mg, Intramuscular, Q15 Min PRN, Bernadette Beulah G, DO heparin (porcine) injection 2,000 Units, 2,000 [...] Beulah Fleming DO, 3 Units at 10/26/23 1652 melatonin [...] 40 mg, 40 mg, Oral, Q AM, Jayce Irizarry PA-C, 40 mg at 10/26/23 0639 Pharmacy to dose vancomycin, , Does not apply, Continuous PRN, Beulah Fleming DO piperacillin-tazobactam (ZOSYN) 4.5 g IVPB in [...] flush 10 mL, 10 mL, Intravenous, Q12H, Jayce Irizarry, PA-C, 10 mL at 10/26/23 0928 sodium chloride 0.9 % flush 10 mL, 10 mL, Intravenous, PRN, Wilder Irizarrynicia L, PA-C sodium chloride 0.9 % infusion 40 mL, 40 mL, Intravenous, PRN, Juan C, Wildernicia L, PA-C [START ON 10/27/2023] vancomycin (dosing [...] Value Units Date/Time XR Chest 1 View [[id number]] Collected: 10/25/232319 Updated: 10/25/232324 Narrative: XR CHEST [...] MD 10/25/2023 11:22 PM EDT Workstation ID: [id number] Assessment: Aneurysmal left radiocephalic fistula, 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 Treat his infection in his [place] vessel with antibiotics per medicine. Once this [...] T2 DM, KIM, cirrhosis s/p liver transplant 2018, hypertension, hyperlipidemia, diabetes. He denies any fever, [...] Procedure: ESOPHAGOGASTRODUODENOSCOPY; Surgeon: Dewey Betancourt MD; Location: [facility] BEDS AT [facility]; Service: Gastroenterology; Laterality: N/A; LUMBAR LAMINECTOMY DISCECTOMY DECOMPRESSION N/A 04/29/2020 Procedure: LUMBAR LAMINECTOMY DISCECTOMY DECOMPRESSION POSTERIOR L4-5; Surgeon: Yinka Garnica MD; Location: [facility]; Service: Neurosurgery; Laterality: N/A; , History [...] with meals. cholecalciferol (VITAMIN D3) 1.25 MG (72656 UT) capsule Take 1 capsule by mouth [...] a Day. vitamin D (ERGOCALCIFEROL) 1.25 MG (96409 UT) capsule capsule Take 1 capsule by [...] tunneled catheter follow-up with Dr. Sky at [facility]. Patient last dialyzed on Monday. Dialyzes 4 [...] Patient signed AMA form in the chart. MD and marine geologist informed. * Margarita Menendez RN - 11/02/2023 4:07 PM EDT Goal Outcome Evaluation: Scheduled HD completed. Goal not met. Temporary cath performed poorly. Tx dc early per Dr hodge r/t to access Tried 4 times to get a hold of JANA Barraza primary nurse via phone and in person on floor. Gave report to manager science. Problem: Device-Related Complication Risk (Hemodialysis) Goal: Safe, [...] RN - 11/01/2023 1:06 PM EDT 15.5 [place]ay[place] islander Image guided temporary dialysis catheter placed to right internal jugular by Dr Castro. Patient tolerated well. Patient to dialysis after * Mukul Styles RN - 10/31/2023 8:00 PM EDT Contacted director of content marketing AIRPORT SCREENER regarding patient's hypotension. Patient was requiring an [...] Thromboembolism) Risk Recent Flowsheet Documentation Taken 10/31/2023 by Mukul Styles RN Activity Management: activity [...] Injury-Free Environment Recent Flowsheet Documentation Taken 10/31/2023 by Mukul Styles RN Safety Promotion/Fall Prevention: [...] Documentation Taken 10/30/2023 1130 by Tiny Langston RN Medication Review/Management: medications reviewed Taken 10/30/2023 0730 by [...] RN Body Position: position changed independently Taken 10/29/2023 220 by Mukul Styles RN Body Position: position [...] Styles RN Activity Management: activity encouraged Taken 10/29/2023 220 by Mukul Styles RN Activity Management: activity [...] nonskid shoes/slippers when out of bed Taken 10/28/2023 2120 by Mukul Styles RN Safety Promotion/Fall Prevention: [...] of Care Goal: Plan of Care Review 10/27/20231411 by Mandi Aparicio RN Outcome: Ongoing, Progressing 10/27/2023 141 by Mandi Aparicio RN Outcome: Ongoing, Progressing Goal: Patient-Specific Goal (Individualized) 10/27/2023 141 by Mandi Aparicio RN Outcome: Ongoing, Progressing 10/27/2023 141 by Mandi Aparicio RN Outcome: Ongoing, Progressing Goal: Absence of Hospital-Acquired Illness or Injury 10/27/2023 141 by Mandi Aparicio RN Outcome: [...] ad shelia Goal: Optimal Comfort and Wellbeing 10/27/20231411 by Mandi Aparicio RN Outcome: Ongoing, Progressing 10/27/20231411 by Mandi Aparicio RN Outcome: Ongoing, Progressing Intervention: Monitor Pain and Promote Comfort Recent Flowsheet Documentation Taken 10/27/2023 0800 by Mandi Aparicio RN Pain Management Interventions: care clustered see MAR Intervention: Provide Person-Centered Care Recent Flowsheet Documentation Taken 10/27/2023 0800 by Mandi Aparicio RN Trust Relationship/Rapport: care explained choices provided Goal: Readiness for Transition of Care 10/27/2023 1412 by Mandi Aparicio RN Outcome: [...] Fall Risk Recent Flowsheet Documentation Taken 10/27/2023 0000 by Roberta Wise RN Safety Promotion/Fall Prevention: activity supervised assistive device/personal items within reach clutter free environment maintained lighting adjusted nonskid shoes/slippers when out of bed room organization consistent safety round/check completed Taken 10/26/2023 2200 by Roberta Wise RN Safety Promotion/Fall Prevention: [...] Thromboembolism) Risk Recent Flowsheet Documentation Taken 10/27/2023 by Roberta Wise RN Activity Management: activity encouraged Range of Motion: active ROM (range of motion) encouraged Taken 10/26/20232199 by Roberta Wise RN Activity Management: activity encouraged Taken 10/26/20231999 by Roberta Wise RN Activity Management: activity encouraged Range of Motion: active ROM (range of motion) encouraged Intervention: Prevent Infection Recent Flowsheet Documentation Taken 10/27/2023 by Roberta Wise RN Infection Prevention: hand [...] Care and Function Recent Flowsheet Documentation Taken 10/26/20231999 by Roberta Wise RN Medication Review/Management: medications [...] Anticipated Discharge Disposition (OT): home * Selina Lucas, PT - 10/26/2023 2:53 PM EDT Goal [...] Flowsheet Documentation Taken 10/26/2023 1017 by Margarita Menendez, service officer Review/Management: medications reviewed Problem: Hemodynamic Instability (Hemodialysis) Goal: Effective Tissue Perfusion Outcome: Ongoing, Progressing Problem: Infection (Hemodialysis) Goal: Absence of Infection Signs and Symptoms Outcome: Ongoing, Progressing documented in this encounter OR Notes * Op Note - Dontae Gruber MD - 10/27/2023 3:49 PM EDT General Surgery Operative Note Aiden Stauffer Jr. [id number] 1975 Date of Surgery: 10/27/2023 16:31 EDT Pre-op Diagnosis: End-stage renal disease Aneurysmal left radiocephalic arteriovenous fistula Cellulitis, infected AV fistula Post-op Diagnosis: End-stage renal disease Aneurysmal left radiocephalic arteriovenous fistula Cellulitis, infected AV fistula Procedure: Ligation left radiocephalic arteriovenous fistula Surgeon: Dontae Gruber MD Auditor Supervisor: Annetta Wright RN Scrub Person: Rosangela Garrido [...] #: 16 ED Nurse Phone Extension - [phone] or may call [phone]. HPI: Chief Complaint Patient presents with fistula problem Past Medical History: Past Medical History: Diagnosis Date Diabetes mellitus Dialysis patient Hemorrhage THROAT VARICIES Kidney failure Liver transplanted Past Surgical History: Past Surgical History: Procedure Laterality Date ARTERIOVENOUS FISTULA Left 2019 CARDIAC CATHETERIZATION times 2022 CHOLECYSTECTOMY ENDOSCOPY N/A 05/04/2020 Procedure: ESOPHAGOGASTRODUODENOSCOPY; Surgeon: Dewey Betancourt MD; Location: [facility]; Service: Gastroenterology; Laterality: N/A; LUMBAR LAMINECTOMY DISCECTOMY DECOMPRESSION N/A 04/29/2020 Procedure: LUMBAR LAMINECTOMY DISCECTOMY DECOMPRESSION POSTERIOR L4-5; Surgeon: Yinka Garnica MD; Location: [facility]S [facility] OR; Service: Neurosurgery; Laterality: N/A; Admitting Doctor: [...] date Placement time Site Days Peripheral IV 10/26/2341 Anterior;Distal;Right;Upper Arm 10/26/2341 Arm less than 1 Hemodialysis Cath Double [...] Day 4 values are available. Refer to [email or web address] Change in PCT <=80% A decrease of [...] limits RESPIRATORY PANEL PCR W/ COVID-19 (SARS-COV-2), JEWEL BEARING FACER SWAB IN UTM/VTP, 2 HR TAT - [...] Procedure Abnormality Status --------- ------ CBC Auto Differential[[id number]] Abnormal Final result Please view results for these tests on the individual orders. Meds Given in ED: Medications sodium chloride 0.9 % flush 10 mL (has no administration in time range) vancomycin 2750 mg/500 mL 0.9% NS IVPB ([facility]) ( Intravenous Currently Infusing 10/26/23 0839) Pharmacy to dose vancomycin (has no administration [...] injection 2-7 Units ( Subcutaneous Not Given 10/26/2345) ! Med Rec Consult - delete when completed (has no administration in time range) ondansetron (ZOFRAN) injection 4 mg (4 mg Intravenous Given 10/26/23116) Morphine sulfate (PF) injection 4 mg (4 mg Intravenous Given 10/26/23116) HYDROmorphone (DILAUDID) injection 0.5 mg (0.5 mg Intravenous Given 10/26/23 024) prochlorperazine (COMPAZINE) injection 10 mg (10 mg Intravenous Given 10/26/23 024) piperacillin-tazobactam (ZOSYN) 4.5 g IVPB in 100 mL NS MBP (CD) (0 g Intravenous Stopped 10/26/23 0641) sodium zirconium cyclosilicate (LOKELMA) pack 10 g (10 g Oral Given 10/26/23 0640) Pharmacy to dose vancomycin, * Terry Burgess [...] pain or vomiting. 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 No [...] of 10/26/23356Oct 25, [id number] BP(!): 220/115 [JK] 2307 Temp: 98.6 ??F (37 ??C) [JK] 2308 [...] of Care: Telemetry [5] Diagnosis: Arm pain [[id number]] Admitting Physician: BEULAH FLEMING [[id number]] Attending Physician: BEULAH FLEMING [[id number]] Bed Request Comments: tele No follow-up provider specified. Medication List No changes were made to your prescriptions during this visit. Terry Burgess MD 10/26/23 0356 Terry Burgess MD 10/26/23 0357 documented in this encounter Miscellaneous Notes * Case Management/Social Work - Rose Be RN - 11/02/2023 8:13 AM EDT Continued Stay Note [facility] Patient Name: Aiden Stauffer Jr. Today's Date: [...] rate in order to upload it in [employer] for Anton, with [facility], to possibly get the patient a new [...] 11/01/2023 8:22 AM EDT Continued Stay Note Marcelo Patient Name: Aiden Stauffer Jr. Today's Date: 11/01/2023 Admit Date: 10/25/2023 Plan: home Discharge Plan Row Name 11/01/23 0818 Plan Plan home Patient/Family in Agreement with Plan yes Plan Comments I spoke with this patient regarding my conversation with Anton, from [facility], concerning his receiving a new home bipap. Anton asked the CM to ask the MD to upload in [employer] the settings for his in house bipap. This might allow Pepper to submit for a new home bipap machine as theone he has now he is unable to be compliant with due to his feeling of suffocation . CM did notify the MD. The plan remains home with to transport. He will need IV antibiotics set up. [facility] has been notified and are [...] 10/27/2023 7:04 AM EDT Discharge Planning Assessment Marcelo Patient Name: Aiden Stauffer Jr. Today's [...] IDP. She stated that [facility] in [facility]. He is independent with self care, with [...] 10/27/2023 3:03 PM EDT HEMODIALYSIS INPATIENT Routine 8:16 AM EDT POCT GLUCOSE FINGERSTICK Routine 10/27/2023 7:46 AM EDT CBC WITH AUTO DIFFERENTIAL Urgent 10/27/2023 5:00 AM EDT HEPATITIS PANEL, ACUTE Urgent 5:00 AM EDT CBC AND DIFFERENTIAL Urgent 10/27/2023 5:00 AM EDT VANCOMYCIN, RANDOM STAT 10/27/2023 5: 00 AM EDT COMPREHENSIVE METABOLIC PANEL Urgent 10/27/2023 5:00 AM EDT POCT GLUCOSE FINGERSTICK Routine 10/26/2023 3:05 PM EDT POTASSIUM Timed 10/26/2023 2:23 PM EDT HEMODIALYSIS INPATIENT Routine 10:18 AM EDT CBC WITH AUTO DIFFERENTIAL Urgent 10/26/2023 7:03 AM EDT COMPREHENSIVE METABOLIC PANEL Urgent 10/26/2023 7:03 AM EDT BLOOD CULTURE STAT 10/26/2023 5:36 AM EDT RESPIRATORY PANEL PCR W/ COVID-19 (SARS-COV-2), JEWEL BEARING FACER SWAB IN UTM/VTP, 2 HR TAT Urgent [...] POC Glucose Once (11/02/2023 3:54 PM EDT) Glucose 124 70 - 130 mg/dL 11/02/2023 3:55 PM EDT [facility] Blood 11/02/2023 3:54 PM EDT 11/02/2023 3:55 PM EDT us Kevin Muller MD POINT OF CARE TEST ORDERABLES Final Result Performing Organization Address City/[facility]/ZIP Co de Phone Number [facility] [place] [address], * (ABNORMAL) POC Glucose Once (11/02/2023 11:04 AM EDT) Glucose 264(H) 70 - 130 mg/dL 11/02/2023 11:05 AM EDT [facility] Blood 11/02/2023 11:0 4 AM EDT 11/02/2023 11:05 AM EDT us Kevin Muller MD POINT OF CARE TEST ORDERABLES Final Result Performing Organization Address City/[facility]/ZIP Co de Phone Number [facility]
[address] [place] [address], [place] [phone] * (ABNORMAL) CBC (No Diff) (11/02/2023 7:51 AM EDT) [facility] WBC 6.79 3.40 - 10.80 10*3/mm3 11/02/2023 7:59 AM EDT [facility] RBC 2.99(L) 4.14 - 5.80 10*6/mm3 11/02/2023 7:59 AM EDT [facility] Hemoglobin 9.4(L) 13.0 - 17.7 g/dL 11/02/2023 7:59 AM EDT [facility] Hematocrit 31.3(L) 37.5 - 51.0 % 11/02/2023 7:59 AM EDT [facility] MCV 104.7(H) 79.0 - 97.0 fL 11/02/2023 7:59 AM EDT [facility] MCH 31.4 26.6 - 33.0 pg 11/02/2023 7:59 AM EDT [facility] MCHC 30.0(L) 31.5 - 35.7 g/dL 11/02/2023 7:59 AM EDT [facility] RDW 14.7 12.3 - 15.4 % 11/02/2023 7:59 AM EDT [facility] RDW-SD 57.1(H) 37.0 - 54.0 fl 11/02/2023 7:59 AM EDT [facility] MPV 9.7 6.0 - 12.0 fL 11/02/2023 7:59 AM EDT [facility] Platelets 227 140 - 450 10*3/mm3 11/02/2023 7:59 AM EDT [facility] Blood Venipuncture / Unknown 11/02/2023 7:51 AM EDT 11/02/2023 7:51 AM EDT us Chiquita Porter APRN LAB BLOOD ORDERABLES Final Res ult [facility]
[address] [place] [address], * (ABNORMAL) Basic Metabolic Panel (11/02/2023 7:32 AM EDT) [facility] Glucose 120(H) 65 - 99 mg/dL 11/02/2023 8:34 AM EDT [facility] BUN 37(H) 6 - 20 mg/dL 11/02/2023 8:34 AM EDT [facility] Creatinine 8.12(H) 0.76 - 1.27 mg/dL 11/02/2023 8:34 AM EDT [facility] Sodium 133(L) 136 - 145 mmol/L 11/02/2023 8:34 AM EDT [facility] Potassium 5.7(H) 3.5 - 5.2 mmol/L 11/02/2023 8:34 AM EDT [facility] Chloride 97(L) 98 - 107 mmol/L 11/02/2023 8:34 AM EDT [facility] CO2 21.0(L) 22.0 - 29.0 mmol/L 11/02/2023 8:34 AM EDT [facility] Calcium 8.0(L) 8.6 - 10.5 mg/dL 11/02/2023 8:34 AM EDT [facility] BUN/Creatinine Ratio 4.6(L) 7.0 - 25.0 11/02/2023 8:34 AM EDT [facility] Anion Gap 15.0 5.0 - 15.0 mmol/L 11/02/2023 8:34 AM EDT [facility] eGFR 7.5(L) >60.0 mL/min/1.7 3 11/02/2023 8:34 AM T [facility] Comment:<15 Indicative of ki dney failure Blood Venipuncture / Unknown 11/02/2023 7:32 AM EDT 11/02/2023 7:51 AM EDT Narrative [facility] - 11/02/2023 8:34 AM EDT GFR Normal >60 Chronic Kidney Disease <60 Kidney Failure <15 Chiquita Porter APRN LAB BLOOD ORDERABLES Final Res ult Performing Organization Address [facility] Co de Phone Number [facility]
[address] [place] [address], [place] [phone] * POC Glucose Once (11/02/2023 6:59 AM EDT) Glucose 118 70 - 130 mg/dL 11/02/2023 7:00 AM EDT [facility] Blood 11/02/2023 6:59 AM EDT 11/02/2023 7:00 AM EDT us Kevin Muller MD POINT OF CARE TEST ORDERABLES Final Result Performing Organization Address [facility] de Phone Number [facility]
[address] [place] [address], [place] [phone] * (ABNORMAL) POC Glucose Once (11/01/2023 8:18 PM EDT) Glucose 223(H) 70 - 130 mg/dL 11/01/2023 8:21 PM EDT [facility] Blood 11/01/2023 8:18 PM EDT 11/01/2023 8:21 PM EDT us Kevin Muller MD POINT OF CARE TEST ORDERABLES Final Result Performing Organization Address [facility] Co de Phone Number [facility]
[address] [place] [address], [place] [phone] * (ABNORMAL) POC Glucose Once (11/01/2023 5:59 PM EDT) Glucose 209(H) 70 - 130 mg/dL 11/01/2023 6:01 PM EDT [facility] Blood 11/01/2023 5:59 PM EDT 11/01/2023 6:01 PM EDT us Kevin Muller MD POINT OF CARE TEST ORDERABLES Final Result [facility]
[address] [place] [address], * IR NON-HUEY TEMP DIALYSIS ACC (11/01/2023 [...] MD 11/01/2023 1:57 PM EDT Workstation ID: [id number] Narrative 11/01/2023 1:57 PM EDT IR NON-TUNNELED TEMP DIALYSIS ACCESS History: Need for temporary dialysis catheter placement. 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 Debarker Operator: Victor Manuel Castro MD. Fire Warden: None Modality: Sonography and fluoroscopy DOSE REDUCTION: [...] condition. Complications: None immediate. ? Device: 14 Slovak x15 cm Dual-lumen nontunneled dialysis catheter . [...] catheter placement. Left forearm AVfistula is infected. Debarker Operator: Victor Manuel Castro MD. Fire Warden: None Modality: Sonography and fluoroscopy DOSE REDUCTION: [...] stable condition. Complications: None immediate. Device: 14 Slovak x15 cm Dual-lumen nontunneled dialysis catheter . [...] MD 11/01/2023 1:57 PM EDT Workstation ID: [id number] us Karishma Hodge MD IMG IR ORDERABLES Final R esult * (ABNORMAL) POC Glucose Once (11/01/2023 11:09 AM EDT) Glucose 150(H) 70 - 130 mg/dL 11/01/2023 11:11 AM EDT [facility] Blood 11/01/2023 11:0 9 AM EDT 11/01/2023 11:11 AM EDT us Kevin Muller MD POINT OF CARE TEST ORDERABLES Final Result [facility]
[address] [place] [address], * POC Glucose Once (11/01/2023 7:21 AM EDT) Pathologist [facility] Glucose 120 70 - 130 mg/dL 11/01/2023 7:25 AM EDT [facility] Blood 11/01/2023 7:21 AM EDT 11/01/2023 7:25 AM EDT Kevin Muller MD POINT OF CARE TEST ORDERABLES Final Result [facility]
[address] [place] [address], * (ABNORMAL) CBC (No Diff) (11/01/2023 5:04 AM EDT) [facility] WBC 7.66 3.40 - 10.80 10*3/mm3 11/01/2023 5:58 AM EDT [facility] RBC 3.13(L) 4.14 - 5.80 10*6/mm3 11/01/2023 5:58 AM EDT [facility] Hemoglobin 10.0(L) 13.0 - 17.7 g/dL 11/01/2023 5:58 AM EDT [facility] Hematocrit 32.5(L) 37.5 - 51.0 % 11/01/2023 5:58 AM EDT [facility] MCV 103.8(H) 79.0 - 97.0 fL 11/01/2023 5:58 AM EDT [facility] MCH 31.9 26.6 - 33.0 pg 11/01/2023 5:58 AM EDT [facility] MCHC 30.8(L) 31.5 - 35.7 g/dL 11/01/2023 5:58 AM EDT [facility] RDW 14.5 12.3 - 15.4 % 11/01/2023 5:58 AM EDT [facility] RDW-SD 56.0(H) 37.0 - 54.0 fl 11/01/2023 5:58 AM EDT [facility] MPV 9.8 6.0 - 12.0 fL 11/01/2023 5:58 AM EDT [facility] Platelets 230 140 - 450 10*3/mm3 11/01/2023 5:58 AM EDT [facility] Blood Venipuncture / Unknown 11/01/2023 5:04 AM EDT 11/01/2023 5:24 AM EDT us Kevin Muller MD LAB BLOOD ORDERABLES Final Res ult [facility]
[address] [place] [address], * (ABNORMAL) Comprehensive Metabolic Panel (11/01/2023 5:04 AM EDT) Glucose 121(H) 65 - 99 mg/dL 11/01/2023 6:01 AM EDT [facility] BUN 52(H) 6 - 20 mg/dL 11/01/2023 6:01 AM T [facility] Creatinine 10.08(H) 0.76 - 1.27 mg/dL 11/01/2023 6:01 AM EDT [facility] Sodium 132(L) 136 - 145 mmol/L 11/01/2023 6:01 AM EDT [facility] Potassium 5.3(H) 3.5 - 5.2 mmol/L 11/01/2023 6:01 AM EDT [facility] Comment:Slight hemolysis det ected by analyzer. Result may be falsely elevated. Chloride 94(L) 98 - 107 mmol/L 11/01/2023 6:01 AM EDT [facility] CO2 17.0(L) 22.0 - 29.0 mmol/L 11/01/2023 6:01 AM EDT [facility] Calcium 7.7(L) 8.6 - 10.5 mg/dL 11/01/2023 6:01 AM T [facility] Total Protein 6.5 6.0 - 8.5 g/dL 11/01/2023 6:01 AM T [facility] Albumin 3.8 3.5 - 5.2 g/dL 11/01/2023 6:01 AM [facility] ALT (SGPT) 11 1 - 41 U/L 11/01/2023 6:01 AM EDT [facility] AST (SGOT) 13 1 - 40 U/L 11/01/2023 6:01 AM T [facility] Alkaline Phosphatase 105 39 - 117 U/L 11/01/2023 6:01 AM T [facility] Total Bilirubin 0.2 0.0 - 1.2 mg/dL 11/01/2023 6:01 AM T [facility] Globulin 2.7 gm/dL 11/01/2023 6:01 AM [facility] Comment:Calculated Result A/G Ratio 1.4 g/dL 11/01/2023 6:01 AM [facility] BUN/Creatinine Ratio 5.2(L) 7.0 - 25.0 11/01/2023 6:01 AM [facility] Anion Gap 21.0(H) 5.0 - 15.0 mmol/L 11/01/2023 6:01 AM [facility] eGFR 5.8(L) >60.0 mL/min/1. 73 11/01/2023 6:01 AM T [facility] Comment:<15 Indicative of ki dney failure Blood Venipuncture / Unknown 11/01/2023 5:04 AM EDT 11/01/2023 5:24 AM T [facility] - 11/01/2023 6:01 AM EDT GFR Normal >60 Chronic Kidney Disease <60 Kidney Failure <15 us Kevin Muller MD LAB BLOOD ORDERABLES Final Res ult [facility]
[address] [place] [address], [place] [phone] * (ABNORMAL) POC Glucose Once (10/31/2023 8:13 PM EDT) Glucose 155(H) 70 - 130 mg/dL 10/31/2023 8:17 PM EDT [facility] Blood 10/31/2023 8:13 PM EDT 10/31/2023 8:17 PM EDT us Kevin Muller MD POINT OF CARE TEST ORDERABLES Final Result Performing Organization Address City/[facility]/ZIP Co de Phone Number [facility]
[address] [place] [address], [place] [phone] * (ABNORMAL) POC Glucose Once (10/31/2023 4:07 PM EDT) Glucose 270(H) 70 - 130 mg/dL 10/31/2023 4:08 PM EDT [facility] Blood 10/31/2023 4:07 PM EDT 10/31/2023 4:08 PM EDT us Kevin Muller MD POINT OF CARE TEST ORDERABLES Final Result Performing Organization Address City/[facility]/ZIP Co de Phone Number [facility]
[address] [place] [address], [place] [phone] * POC Glucose Once (10/31/2023 11:41 AM EDT) Glucose 129 70 - 130 mg/dL 10/31/2023 11:43 AM EDT [facility] Blood 10/31/2023 11:4 1 AM EDT 10/31/2023 11:43 AM EDT us Kevin Muller MD POINT OF CARE TEST ORDERABLES Final Result [facility]
[address] [place] [address], * (ABNORMAL) POC Glucose Once (10/31/2023 8:03 AM EDT) [facility] Glucose 145(H) 70 - 130 mg/dL 10/31/2023 8:04 AM EDT [facility] Blood 10/31/2023 8:03 AM EDT 10/31/2023 8:04 AM EDT Kevin Muller MD POINT OF CARE TEST ORDERABLES Final Result [facility]
[address] [place] [address], * (ABNORMAL) CBC Auto Differential (10/31/2023 5:04 AM EDT) [facility] WBC 4.16 3.40 - 10.80 10*3/mm3 10/31/2023 6:18 AM EDT [facility] RBC 3.39(L) 4.14 - 5.80 10*6/mm3 10/31/2023 6:18 AM EDT [facility] Hemoglobin 10.5(L) 13.0 - 17.7 g/dL 10/31/2023 6:18 AM EDT [facility] Hematocrit 34.5(L) 37.5 - 51.0 % 10/31/2023 6:18 AM EDT [facility] MCV 101.8(H) 79.0 - 97.0 fL 10/31/2023 6:18 AM EDT [facility] MCH 31.0 26.6 - 33.0 pg 10/31/2023 6:18 AM EDT [facility] MCHC 30.4(L) 31.5 - 35.7 g/dL 10/31/2023 6:18 AM EDT [facility] RDW 14.5 12.3 - 15.4 % 10/31/2023 6:18 AM [facility] RDW-SD 54.4(H) 37.0 - 54.0 fl 10/31/2023 6:18 AM [facility] MPV 9.5 6.0 - 12.0 fL 10/31/2023 6:[facility] Platelets 203 140 - 450 10*3/mm3 10/31/2023 6:[facility] Neutrophil % 45.7 42.7 - 76.0 % 10/31/2023 6:18 [facility] Lymphocyte % 26.0 19.6 - 45.3 % 10/31/2023 6:18 [facility] Monocyte % 18.3(H) 5.0 - 12.0 % 10/31/2023 6:18 [facility] Eosinophil % 5.5 0.3 - 6.2 % 10/31/2023 6:18 [facility] Basophil % 0.7 0.0 - 1.5 % 10/31/2023 6:18 AM [facility] Immature Grans % 3.8(H) 0.0 - 0.5 % 10/31/2023 6:18 AM [facility] Neutrophils, Absolute 1.90 1.70 - 7.00 10*3/mm3 10/31/2023 6:18 AM [facility] Lymphocytes, Absolute 1.08 0.70 - 3.10 10*3/mm3 10/31/2023 6:18 [facility] Monocytes, Absolute 0.76 0.10 - 0.90 10*3/mm3 10/31/2023 6:18 [facility] Eosinophils, Absolute 0.23 0.00 - 0.40 10*3/mm3 10/31/2023 6:18 [facility] Basophils, Absolute 0.03 0.00 - 0.20 10*3/mm3 10/31/2023 6:18 [facility] Immature Grans, Absolute 0.16(H) 0.00 - 0.05 10*3/mm3 10/31/2023 6:18 AM EDT [facility] nRBC 0.0 0.0 - 0.2 /100 WBC 10/31/2023 6:18 AM EDT [facility] Blood Venipuncture / Unknown 10/31/2023 5:04 AM EDT 10/31/2023 5:18 AM EDT Michelle Shore LAB BLOOD ORDERABLES Final R esult [facility]
[address] [place] [address], * (ABNORMAL) Basic Metabolic Panel (10/31/2023 5:04 AM EDT) Glucose 140(H) 65 - 99 mg/dL 10/31/2023 6:05 AM EDT [facility] BUN 39(H) 6 - 20 mg/dL 10/31/2023 6:05 AM T [facility] Creatinine 7.99(H) 0.76 - 1.27 mg/dL 10/31/2023 6:05 AM T [facility] Sodium 131(L) 136 - 145 mmol/L 10/31/2023 6:05 AM T [facility] Potassium 4.5 3.5 - 5.2 mmol/L 10/31/2023 6:05 AM T [facility] Comment:Slight hemolysis det ected by analyzer. Result may be falsely elevated. Chloride 94(L) 98 - 107 mmol/L 10/31/2023 6:05 AM EDT [facility] CO2 20.0(L) 22.0 - 29.0 mmol/L 10/31/2023 6:05 AM EDT [facility] Calcium 8.7 8.6 - 10.5 mg/dL 10/31/2023 6:05 AM EDT [facility] BUN/Creatinine Ratio 4.9(L) 7.0 - 25.0 10/31/2023 6:05 AM EDT [facility] Anion Gap 17.0(H) 5.0 - 15.0 mmol/L 10/31/2023 6:05 AM EDT [facility] eGFR 7.6(L) >60.0 mL/min/1.7 3 10/31/2023 6:05 AM EDT [facility] Comment:<15 Indicative of ki dney failure Blood Venipuncture / Unknown 10/31/2023 5:04 AM EDT 10/31/2023 5:18 AM EDT Narrative [facility] - 10/31/2023 6:05 AM EDT GFR Normal >60 Chronic Kidney Disease <60 Kidney Failure <15 Michelle Shore DO LAB BLOOD ORDERABLES Final R esult Performing Organization Address City/[facility]/ZIP Co de Phone Number [facility]
[address] [place] [address], * (ABNORMAL) POC Glucose Once (10/30/2023 8:26 PM EDT) Glucose 192(H) 70 - 130 mg/dL 10/30/2023 8:29 PM EDT [facility] Blood 10/30/2023 8:26 PM EDT 10/30/2023 8:29 PM EDT Michelle Shore DO POINT OF CARE TEST ORDERABLE S Final Result [facility]
[address] [place] [address], * (ABNORMAL) POC Glucose Once (10/30/2023 5:18 PM EDT) Glucose 144(H) 70 - 130 mg/dL 10/30/2023 6:47 PM EDT [facility] Blood 10/30/2023 5:18 PM EDT 10/30/2023 6:47 PM EDT Michelle Shore DO POINT OF CARE TEST ORDERABLE S Final Result [facility]
[address] [place] [address], [place] [phone] * Catheter Culture - Cath Tip, Chest, Right (10/30/2023 4:07 PM EDT) CATHETER CULTURE No growth at 2 days GREGORY 11/01/2023 7:12 AM EDT [facility] Cath Tip Right thorax structure / Unknown Collection / Unknown 10/30/2023 4:07 PM EDT 10/30/2023 4:25 PM EDT Michelle Shore DO MICROBIOLOGY - GENERAL ORDER ASHISH Final Result [facility]
[address] [place] [address], [place] [phone] * IR Removal Tunnel CV Cath Without [...] MD 10/31/2023 12:44 PM EDT Workstation ID: [id number] Narrative 10/31/2023 12:44 PM EDT IR REMOVAL TUNNEL CV CATH WO PORT ? History: bacteremia, immunocompromised ? Debarker Operator: Victor Manuel Castro MD. Modality: Not applicable. No sedation. Anesthesia: Lidocaine 1% Estimated blood loss: ??< 5 cc. ? Technique: A universal timeout was performed prior to starting the procedure. ?? The graduating machine operator used personal protective equipment and sterile [...] CV CATH WO PORT History: bacteremia, immunocompromised Debarker Operator: Victor Manuel Castro MD. Modality: Not applicable. No sedation. Anesthesia: Lidocaine 1% Estimated blood loss: < 5 cc. Technique: A universal timeout was performed prior to starting the procedure. The graduating machine operator used personal protective equipment and sterile [...] MD 10/31/2023 12:44 PM EDT Workstation ID: [id number] Michelle Shore DO IMG IR ORDERABLES Final Resu lt * (ABNORMAL) POC Glucose Once (10/30/2023 12:04 PM EDT) Pathologist [facility] Glucose 152(H) 70 - 130 mg/dL 10/30/2023 12:05 PM EDT [facility] Blood 10/30/2023 12:0 4 PM EDT 10/30/2023 12:05 PM EDT Michelle Shore DO POINT OF CARE TEST ORDERABLE S Final Result [facility]
[address] [place] [address], * (ABNORMAL) CBC Auto Differential (10/30/2023 4:18 AM EDT) Pathologist [facility] WBC 5.35 3.40 - 10.80 10*3/mm3 10/30/2023 6:29 AM EDT [facility] RBC 2.99(L) 4.14 - 5.80 10*6/mm3 10/30/2023 6:29 AM EDT [facility] Hemoglobin 9.6(L) 13.0 - 17.7 g/dL 10/30/2023 6:29 AM EDT [facility] Hematocrit 32.4(L) 37.5 - 51.0 % 10/30/2023 6:29 AM EDT [facility] MCV 108.4(H) 79.0 - 97.0 fL 10/30/2023 6:29 AM EDT [facility] MCH 32.1 26.6 - 33.0 pg [facility]23 [facility] MCHC 29.6(L) 31.5 - 35.7 g/dL 10/30/2023 6:29 AM EDT [facility] RDW 14.6 12.3 - 15.4 % 10/30/2023 6:29 AM EDT [facility] RDW-SD 58.2(H) 37.0 - 54.0 fl 10/30/2023 6:29 AM EDT [facility] MPV 9.8 6.0 - 12.0 fL 10/30/2023 6:29 AM EDT [facility] Platelets 198 140 - 450 10*3/mm3 10/30/2023 6:29 AM EDT [facility] Neutrophil % 57.6 42.7 - 76.0 % 10/[facility]23 [facility] Lymphocyte % 18.5(L) 19.6 - 45.3 % 10/30[facility]2023 [facility] Monocyte % 16.8(H) 5.0 - 12.0 % 10/30/2023 6[facility] Eosinophil % 2.8 0.3 - 6.2 % 10/[facility]2023 [facility] Basophil % 0.6 0.0 - 1.5 % 10/30/2023 6:29 AM EDT [facility] Immature Grans % 3.7(H) 0.0 - 0.5 % 10/30/2023 6:[facility] Neutrophils, Absolute 3.08 1.70 - 7.00 10*3/mm3 10/30/2023 6:29 AM EDT [facility] Lymphocytes, Absolute 0.99 0.70 - 3.10 10*3/mm3 10/30/2023 6[facility] Monocytes, Absolute 0.90 0.10 - 0.90 10*3/mm3 10/30/2023 6:29 AM EDT [facility] Eosinophils, Absolute 0.15 0.00 - 0.40 10*3/mm3 10/30/2023 6:29 AM EDT [facility] Basophils, Absolute 0.03 0.00 - 0.20 10*3/mm3 10/30/2023 6:29 AM EDT [facility] Immature Grans, Absolute 0.20(H) 0.00 - 0.05 10*3/mm3 10/30/2023 6:29 AM EDT [facility] nRBC 0.0 0.0 - 0.2 /100 WBC 10/30/2023 6:29 AM EDT [facility] Blood Venipuncture / Unknown 10/30/2023 4:18 AM EDT 10/30/2023 5:56 AM EDT Michelle Shore DO LAB BLOOD ORDERABLES Final R esult [facility]
[address] [place] [address], * (ABNORMAL) Basic Metabolic Panel (10/30/2023 4:18 AM EDT) Glucose 99 65 - 99 mg/dL 10/30/2023 6:54 AM EDT [facility] BUN 55(H) 6 - 20 mg/dL 10/30/2023 6:54 AM EDT [facility] Creatinine 10.39(H) 0.76 - 1.27 mg/dL 10/30/2023 6:54 AM EDT [facility] Sodium 132(L) 136 - 145 mmol/L 10/30/2023 6:54 AM EDT [facility] Potassium 5.7(H) 3.5 - 5.2 mmol/L 10/30/2023 6:54 AM EDT [facility] Comment:Slight hemolysis det ected by analyzer. Result may be falsely elevated. Chloride 92(L) 98 - 107 mmol/L 10/30/2023 6:54 AM EDT [facility] CO2 19.0(L) 22.0 - 29.0 mmol/L 10/30/2023 6:54 AM EDT [facility] Calcium 8.1(L) 8.6 - 10.5 mg/dL 10/30/2023 6:54 AM EDT [facility] BUN/Creatinine Ratio 5.3(L) 7.0 - 25.0 10/30/2023 6:54 AM EDT [facility] Anion Gap 21.0(H) 5.0 - 15.0 mmol/L 10/30/2023 6:54 AM EDT [facility] eGFR 5.6(L) >60.0 mL/min/1.7 3 10/30/2023 6:54 AM EDT [facility] Comment:<15 Indicative of ki dney failure Blood Venipuncture / Unknown 10/30/2023 4:18 AM EDT 10/30/2023 5:56 AM EDT [facility] - 10/30/2023 6:54 AM EDT GFR Normal >60 Chronic Kidney Disease <60 Kidney Failure <15 Michelle Shore DO LAB BLOOD ORDERABLES Final R esult [facility]
[address] [place] [address], * Vancomycin, Random (10/30/2023 4:18 AM EDT) Vancomycin Random 22.60 5.00 - 40.00 mcg/mL 10/30/2023 6:49 AM EDT [facility] Blood Venipuncture / Unknown 10/30/2023 4:18 AM EDT 10/30/2023 5:56 AM EDT [facility] - 10/30/2023 6:49 AM EDT Therapeutic Ranges for Vancomycin Vancomycin Random ?? 5.0-40.0 mcg/mL Vancomycin Trough ?? 5.0-20.0 mcg/mL Vancomycin Peak ? 20.0-40.0 mcg/mL Dontae Gruber MD LAB BLOOD ORDERABLES Fi nal Result Performing Organization Address [facility] Co de Phone Number [facility]
[address] [place] [address], * (ABNORMAL) POC Glucose Once (10/29/2023 8:07 PM EDT) Glucose 143(H) 70 - 130 mg/dL 10/29/2023 8:08 PM EDT [facility] Blood 10/29/2023 8:07 PM EDT 10/29/2023 8:08 PM EDT Michelle Shore DO POINT OF CARE TEST ORDERABLE S Final Result Performing Organization Address [facility] Co de Phone Number [facility]
[address] [place] [address], * (ABNORMAL) POC Glucose Once (10/29/2023 4:23 PM EDT) Glucose 205(H) 70 - 130 mg/dL 10/29/2023 4:24 PM EDT [facility] Blood 10/29/2023 4:23 PM EDT 10/29/2023 4:24 PM EDT Michelle Shore DO POINT OF CARE TEST ORDERABLE S Final Result Performing Organization Address [facility] de Phone Number [facility]
[address] [place] [address], * (ABNORMAL) POC Glucose Once (10/29/2023 11:38 AM EDT) Glucose 181(H) 70 - 130 mg/dL 10/29/2023 11:41 AM EDT [facility] Blood 10/29/2023 11:3 8 AM EDT 10/29/2023 11:41 AM EDT Michelle Shore DO POINT OF CARE TEST ORDERABLE S Final Result Performing Organization Address City/[facility]/ZIP Co de Phone Number [facility]
[address] [place] [address], * (ABNORMAL) POC Glucose Once (10/29/2023 7:28 AM EDT) Glucose 180(H) 70 - 130 mg/dL 10/29/2023 7:29 AM EDT [facility] Blood 10/29/2023 7:28 AM EDT 10/29/2023 7:29 AM EDT Michelle Shore DO POINT OF CARE TEST ORDERABLE S Final Result Performing Organization Address [facility]/ZIP Co de Phone Number [facility]
[address] [place] [address], * (ABNORMAL) CBC Auto Differential (10/29/2023 5:03 AM EDT) Pathologist [facility] WBC 7.31 3.40 - 10.80 10*3/mm3 10/29/2023 5:54 AM EDT [facility] RBC 3.45(L) 4.14 - 5.80 10*6/mm3 10/29/2023 5:54 AM EDT [facility] Hemoglobin 11.2(L) 13.0 - 17.7 g/dL 10/29/2023 5:54 AM EDT [facility] Hematocrit 35.4(L) 37.5 - 51.0 % 10/29/2023 5:54 AM EDT [facility] MCV 102.6(H) 79.0 - 97.0 fL 10/29/2023 5:54 AM EDT [facility] MCH 32.5 26.6 - 33.0 pg 10/[facility]2023 5[facility] MCHC 31.6 31.5 - 35.7 g/dL 10/29/2023 5:54 AM EDT [facility] RDW 14.0 12.3 - 15.4 % 10/29/2023 5:54 AM EDT [facility] RDW-SD 52.2 37.0 - 54.0 fl 10/29/2023 5:54 AM EDT [facility] MPV 9.6 6.0 - 12.0 fL 10/29/2023 5:54 AM EDT [facility] Platelets 220 140 - 450 10*3/mm3 10/29/2023 5:54 AM EDT [facility] Neutrophil % 74.4 42.7 - 76.0 % 10/29/2023 5:[facility] Lymphocyte % 7.9(L) 19.6 - 45.3 % 10/29/2023 5:54 [facility] Monocyte % 11.2 5.0 - 12.0 % 10/29/2023 5:54 [facility] Eosinophil % 4.0 0.3 - 6.2 % 10/29/2023 5:54 [facility] Basophil % 0.4 0.0 - 1.5 % 10/29/2023 5:54 [facility] Immature Grans % 2.1(H) 0.0 - 0.5 % 10/29/2023 5:54 AM EDT [facility] Neutrophils, Absolute 5.44 1.70 - 7.00 10*3/mm3 10/29/2023 5:54 AM EDT [facility] Lymphocytes, Absolute 0.58(L) 0.70 - 3.10 10*3/mm3 10/29/2023 5:54 [facility] Monocytes, Absolute 0.82 0.10 - 0.90 10*3/mm3 10/29/2023 5:54 AM EDT [facility] Eosinophils, Absolute 0.29 0.00 - 0.40 10*3/mm3 10/29/2023 5:54 AM EDT [facility] Basophils, Absolute 0.03 0.00 - 0.20 10*3/mm3 10/29/2023 5:54 AM EDT [facility] Immature Grans, Absolute 0.15(H) 0.00 - 0.05 10*3/mm3 10/29/2023 5:54 AM EDT [facility] nRBC 0.0 0.0 - 0.2 /100 WBC 10/29/2023 5:54 AM EDT [facility] Blood Venipuncture / Unknown 10/29/2023 5:03 AM EDT 10/29/2023 5:46 AM EDT Michelle Shore DO LAB BLOOD ORDERABLES Final R esult [facility]
[address] [place] [address], * (ABNORMAL) Basic Metabolic Panel (10/29/2023 5:03 AM EDT) Glucose 164(H) 65 - 99 mg/dL 10/29/2023 6:44 AM EDT [facility] BUN 35(H) 6 - 20 mg/dL 10/29/2023 6:44 AM EDT [facility] Creatinine 7.90(H) 0.76 - 1.27 mg/dL 10/29/2023 6:44 AM EDT [facility] Sodium 132(L) 136 - 145 mmol/L 10/29/2023 6:44 AM EDT [facility] Potassium 4.6 3.5 - 5.2 mmol/L 10/29/2023 6:44 AM EDT [facility] Chloride 91(L) 98 - 107 mmol/L 10/29/2023 6:44 AM EDT [facility] CO2 19.0(L) 22.0 - 29.0 mmol/L 10/29/2023 6:44 AM EDT [facility] Calcium 8.8 8.6 - 10.5 mg/dL 10/29/2023 6:44 AM EDT [facility] BUN/Creatinine Ratio 4.4(L) 7.0 - 25.0 10/29/2023 6:44 AM EDT [facility] Anion Gap 22.0(H) 5.0 - 15.0 mmol/L 10/29/2023 6:44 AM EDT [facility] eGFR 7.7(L) >60.0 mL/min/1.7 3 10/29/2023 6:44 AM EDT [facility] Comment:<15 Indicative of ki dney failure Blood Venipuncture / Unknown 10/29/2023 5:03 AM EDT 10/29/2023 5:48 AM EDT Narrative [facility] - 10/29/2023 6:44 AM EDT GFR Normal >60 Chronic Kidney Disease <60 Kidney Failure <15 Michelle Shore DO LAB BLOOD ORDERABLES Final R esult [facility]
[address] [place] [address], * (ABNORMAL) POC Glucose Once (10/28/2023 8:04 PM EDT) Glucose 242(H) 70 - 130 mg/dL 10/28/2023 8:06 PM EDT [facility] Blood 10/28/2023 8:04 PM EDT 10/28/2023 8:06 PM EDT us Michelle Shore DO POINT OF CARE TEST ORDERABLE S Final Result [facility]
[address] [place] [address], [place] [phone] * (ABNORMAL) POC Glucose Once (10/28/2023 5:42 PM EDT) Glucose 173(H) 70 - 130 mg/dL 10/28/2023 5:43 PM EDT [facility] Blood 10/28/2023 5:42 PM EDT 10/28/2023 5:43 PM EDT us Michelle Shore DO POINT OF CARE TEST ORDERABLE S Final Result [facility]
[address] [place] [address], [place] [phone] * Blood Culture - Blood, Arm, Right (10/28/2023 1:42 PM EDT) Blood Culture No growth at 5 days 11/02/2023 3:00 PM EDT [facility] Blood Structure of right upper limb / Unknown Venipuncture / Unknown 10/28/2023 1:42 PM EDT 10/28/2023 2:54 PM EDT us Giancarlo TOTH MICROBIOLOGY - GENERAL ORDERABLE S Final Result Performing Organization Address [facility] Co de Phone Number [facility]
[address] [place] [address], [place] [phone] * Blood Culture - Blood, Hand, Right (10/28/2023 1:42 PM EDT) Blood Culture No growth at 5 days 11/02/2023 3:00 PM EDT [facility] Blood Structure of right hand / Unknown Venipuncture / Unknown 10/28/2023 1:42 PM EDT 10/28/2023 2:54 PM EDT us Giancarlo TOTH MICROBIOLOGY - GENERAL ORDERABLE S Final Result Performing Organization Address City/[facility]/ZIP Co de Phone Number [facility]
[address] [place] [address], * (ABNORMAL) POC Glucose Once (10/28/2023 1:10 PM EDT) Glucose 205(H) 70 - 130 mg/dL 10/28/2023 1:14 PM EDT [facility] Blood 10/28/2023 1:10 PM EDT 10/28/2023 1:14 PM EDT Michelle Shore POINT OF CARE TEST ORDERABLE S Final Result [facility]
[address] [place] [address], * POC Glucose Once (10/28/2023 7:54 AM EDT) Glucose 125 70 - 130 mg/dL 10/28/2023 7:56 AM EDT [facility] Blood 10/28/2023 7:54 AM EDT 10/28/2023 7:55 AM EDT Michelle Shore DO POINT OF CARE TEST ORDERABLE S Final Result [facility]
[address] [place] [address], * (ABNORMAL) CBC Auto Differential (10/28/2023 4:39 AM EDT) WBC 5.50 3.40 - 10.80 10*3/mm3 10/28/2023 5:00 AM EDT [facility] RBC 3.43(L) 4.14 - 5.80 10*6/mm3 10/28/2023 5:00 AM EDT [facility] Hemoglobin 10.8(L) 13.0 - 17.7 g/dL 10/28/2023 5:00 AM EDT [facility] Hematocrit 34.9(L) 37.5 - 51.0 % 10/28/2023 5:00 AM [facility] MCV 101.7(H) 79.0 - 97.0 fL 10/28/2023 5:00 AM [facility] MCH 31.5 26.6 - 33.0 pg 10/28/2023 5:00 AM [facility] MCHC 30.9(L) 31.5 - 35.7 g/dL 10/28/2023 5:00 AM [facility] RDW 14.1 12.3 - 15.4 % 10/28/2023 5:00 AM [facility] RDW-SD 52.2 37.0 - 54.0 fl 10/28/2023 5:00 AM [facility] MPV 9.5 6.0 - 12.0 fL 10/28/2023 5:00 AM [facility] Platelets 217 140 - 450 10*3/mm3 10/28/2023 5:00 AM [facility] Neutrophil % 57.1 42.7 - 76.0 % 10/28/2023 5:00 AM [facility] Lymphocyte % 22.0 19.6 - 45.3 % 10/28/2023 5:00 AM [facility] Monocyte % 11.5 5.0 - 12.0 % 10/28/2023 5:00 AM [facility] Eosinophil % 6.0 0.3 - 6.2 % 10/28/2023 5:00 AM [facility] Basophil % 0.5 0.0 - 1.5 % 10/28/2023 5:00 AM [facility] Immature Grans % 2.9(H) 0.0 - 0.5 % 10/28/2023 5:00 AM [facility] Neutrophils, Absolute 3.14 1.70 - 7.00 10*3/mm3 10/28/2023 5:00 AM [facility] Lymphocytes, Absolute 1.21 0.70 - 3.10 10*3/mm3 10/28/2023 5:00 AM EDT [facility] Monocytes, Absolute 0.63 0.10 - 0.90 10*3/mm3 10/28/2023 5:00 AM EDT [facility] Eosinophils, Absolute 0.33 0.00 - 0.40 10*3/mm3 10/28/2023 5:00 AM EDT [facility] Basophils, Absolute 0.03 0.00 - 0.20 10*3/mm3 10/28/2023 5:00 AM EDT [facility] Immature Grans, Absolute 0.16(H) 0.00 - 0.05 10*3/mm3 10/28/2023 5:00 AM EDT [facility] nRBC 0.0 0.0 - 0.2 /100 WBC 10/28/2023 5:00 AM EDT [facility] Blood Venipuncture / Unknown 10/28/2023 4:39 AM EDT 10/28/2023 4:54 AM EDT us Dontae Gruber MD LAB BLOOD ORDERABLES nal Result [facility]
[address] [place] [address], * (ABNORMAL) Basic Metabolic Panel (10/28/2023 4:39 AM EDT) Glucose 139(H) 65 - 99 mg/dL 10/28/2023 5:17 AM EDT [facility] BUN 23(H) 6 - 20 mg/dL 10/28/2023 5:17 AM EDT [facility] Creatinine 5.33(H) 0.76 - 1.27 mg/dL 10/28/2023 5:17 AM EDT [facility] Sodium 133(L) 136 - 145 mmol/L 10/28/2023 5:17 AM EDT [facility] Potassium 4.3 3.5 - 5.2 mmol/L 10/28/2023 5:17 AM EDT [facility] Chloride 94(L) 98 - 107 mmol/L 10/28/2023 5:17 AM EDT [facility] CO2 23.0 22.0 - 29.0 mmol/L 10/28/2023 5:17 AM EDT [facility] Calcium 9.2 8.6 - 10.5 mg/dL 10/28/2023 5:17 AM EDT [facility] BUN/Creatinine Ratio 4.3(L) 7.0 - 25.0 10/28/2023 5:17 AM EDT [facility] Anion Gap 16.0(H) 5.0 - 15.0 mmol/L 10/28/2023 5:17 AM EDT [facility] eGFR 12.4(L) >60.0 mL/min/1.7 3 10/28/2023 5:17 AM EDT [facility] Comment:<15 Indicative of ki dney failure Blood Venipuncture / Unknown 10/28/2023 4:39 AM EDT 10/28/2023 4:54 AM EDT Narrative [facility] - 10/28/2023 5:17 AM EDT GFR Normal >60 Chronic Kidney Disease <60 Kidney Failure <15 Dontae Gruber MD LAB BLOOD ORDERABLES Fi nal Result [facility]
[address] [place] [address], * (ABNORMAL) POC Glucose Once (10/27/2023 8:06 PM EDT) Glucose 166(H) 70 - 130 mg/dL 10/27/2023 8:07 PM EDT [facility] Blood 10/27/2023 8:06 PM EDT 10/27/2023 8:07 PM EDT Michelle Shore DO POINT OF CARE TEST ORDERABLE S Final Result [facility]
[address] [id number], * CT Abdomen Pelvis Without Contrast (10/27/2023 [...] MD 10/27/2023 9:08 PM EDT Workstation ID: [id number] Narrative 10/27/2023 9:[address] ABDOMEN [...] body. Negative for acute fracture. Procedure Note Massimo Burns MD - 10/27/2023 CT ABDOMEN PELVIS WO [...] MD 10/27/2023 9:08 PM EDT Workstation ID: [id number] us Dontae Gruber MD IM CT ORDERABLES Final Result * POC Glucose Once (10/27/2023 5:33 PM EDT) Glucose 107 70 - 130 mg/dL 10/27/2023 5:35 PM EDT [facility] Blood 10/27/2023 5:33 PM EDT 10/27/2023 5:35 PM EDT Michelle Shore DO POINT OF CARE TEST ORDERABLE S Final Result Performing Organization Address [facility] Co de Phone Number [facility]
[address] [place] [address], * (ABNORMAL) POC Glucose Once (10/27/2023 7:46 AM EDT) Glucose 157(H) 70 - 130 mg/dL 10/27/2023 7:47 AM EDT [facility] Blood 10/27/2023 7:46 AM EDT 10/27/2023 7:47 AM EDT Michelle Shore DO POINT OF CARE TEST ORDERABLE S Final Result Performing Organization Address [facility] de Phone Number [facility]
[address] [place] [address], * Vancomycin, Random (10/27/2023 5:00 AM EDT) Vancomycin Random 7.70 5.00 - 40.00 mcg/mL 10/27/2023 3:01 PM EDT [facility] Blood Venipuncture / Unknown 10/27/2023 5:00 AM EDT 10/27/2023 5:29 AM EDT Narrative [facility] - 10/27/2023 3:01 PM EDT Therapeutic Ranges for Vancomycin Vancomycin Random ?? 5.0-40.0 mcg/mL Vancomycin Trough ?? 5.0-20.0 mcg/mL Vancomycin Peak ? 20.0-40.0 mcg/mL Gia Fields [facility] LAB BLOOD ORDERABLES Final Resu lt Performing Organization Address City/[facility]/ZIP Co de Phone Number [facility]
[address] [place] [address], * (ABNORMAL) CBC Auto Differential (10/27/2023 5:00 AM EDT) WBC 4.56 3.40 - 10.80 10*3/mm3 10/27/2023 5:36 AM EDT [facility] RBC 3.56(L) 4.14 - 5.80 10*6/mm3 10/27/2023 5:36 AM EDT [facility] Hemoglobin 11.3(L) 13.0 - 17.7 g/dL 10/27/2023 5:36 AM EDT [facility] Hematocrit 36.3(L) 37.5 - 51.0 % 10/27/2023 5:36 AM EDT [facility] MCV 102.0(H) 79.0 - 97.0 fL 10/27/2023 5:36 AM EDT [facility] MCH 31.7 26.6 - 33.0 pg 10/27/2023 5:36 AM EDT [facility] MCHC 31.1(L) 31.5 - 35.7 g/dL 10/27/2023 5:36 AM EDT [facility] RDW 14.2 12.3 - 15.4 % 10/27/2023 5:36 AM EDT [facility] RDW-SD 53.5 37.0 - 54.0 fl 10/27/2023 5:36 AM EDT [facility] MPV 9.6 6.0 - 12.0 fL 10/27/2023 5:36 AM EDT [facility] Platelets 233 140 - 450 10*3/mm3 10/27/2023 5:36 AM EDT [facility] Neutrophil % 57.3 42.7 - 76.0 % 10/27/2023 5:36 AM EDT [facility] Lymphocyte % 22.8 19.6 - 45.3 % 10/27/2023 5:36 AM EDT [facility] Monocyte % 11.6 5.0 - 12.0 % 10/27/2023 5:36 AM EDT [facility] Eosinophil % 5.0 0.3 - 6.2 % 10/27/2023 5:36 AM EDT [facility] Basophil % 0.4 0.0 - 1.5 % 10/27/2023 5:36 AM EDT [facility] Immature Grans % 2.9(H) 0.0 - 0.5 % 10/27/2023 5:36 AM EDT [facility] Neutrophils, Absolute 2.61 1.70 - 7.00 10*3/mm3 10/27/2023 5:36 AM EDT [facility] Lymphocytes, Absolute 1.04 0.70 - 3.10 10*3/mm3 10/27/2023 5:36 AM EDT [facility] Monocytes, Absolute 0.53 0.10 - 0.90 10*3/mm3 10/27/2023 5:36 AM EDT [facility] Eosinophils, Absolute 0.23 0.00 - 0.40 10*3/mm3 10/27/2023 5:36 AM EDT [facility] Basophils, Absolute 0.02 0.00 - 0.20 10*3/mm3 10/27/2023 5:36 AM EDT [facility] Immature Grans, Absolute 0.13(H) 0.00 - 0.05 10*3/mm3 10/27/2023 5:36 AM EDT [facility] nRBC 0.0 0.0 - 0.2 /100 WBC 10/27/2023 5:36 AM EDT [facility] Blood Venipuncture / Unknown 10/27/2023 5:00 AM EDT 10/27/2023 5:29 AM EDT us Jennifer Daviosn MD LAB BLOOD ORDERABLES Final Resul t [facility]
[address] [place] [address], * Hepatitis Panel, Acute (10/27/2023 5:00 AM EDT) Pathologist [facility] Hepatitis B Surface Ag Non-Reacti ve Non-Reacti ve 10/27/2023 6:02 AM EDT [facility] Hep A IgM Non-Reacti ve Non-Reacti ve 10/27/2023 6:02 AM EDT [facility] Hep B C IgM Non-Reacti ve Non-Reacti ve 10/27/2023 6:02 AM EDT [facility] Hepatitis C Ab Non-Reacti ve Non-Reacti ve 10/27/2023 6:02 AM EDT [facility] Blood Venipuncture / Unknown 10/27/2023 5:00 AM EDT 10/27/2023 5:29 AM EDT Narrative [facility] - 10/27/2023 6:02 AM EDT Results may be falsely decreased if patient taking Biotin. us Jennifer Davison MD LAB BLOOD ORDERABLES Final Resul t [facility]
[address] [place] [address], * (ABNORMAL) Comprehensive Metabolic Panel (10/27/2023 5:00 AM EDT) Pathologist [facility] Glucose 173(H) 65 - 99 mg/dL 10/27/2023 5:55 AM EDT [facility] BUN 41(H) 6 - 20 mg/dL 10/27/2023 5:55 AM EDT [facility] Creatinine 6.81(H) 0.76 - 1.27 mg/dL 10/27/2023 5:55 AM EDT [facility] Sodium 134(L) 136 - 145 mmol/L 10/27/2023 5:55 AM EDT [facility] Potassium 5.0 3.5 - 5.2 mmol/L 10/27/2023 5:55 AM [facility] Chloride 95(L) 98 - 107 mmol/L 10/27/2023 5:55 AM [facility] CO2 27.0 22.0 - 29.0 mmol/L 10/27/2023 5:55 AM [facility] Calcium 9.0 8.6 - 10.5 mg/dL 10/27/2023 5:55 AM [facility] Total Protein 6.5 6.0 - 8.5 g/dL 10/27/2023 5:55 AM [facility] Albumin 4.1 3.5 - 5.2 g/dL 10/27/2023 5:55 AM [facility] ALT (SGPT) 8 1 - 41 U/L 10/27/2023 5:55 AM [facility] AST (SGOT) 12 1 - 40 U/L 10/27/2023 5:55 AM [facility] Alkaline Phosphatase 129(H) 39 - 117 U/L 10/27/2023 5:55 AM [facility] Total Bilirubin 0.4 0.0 - 1.2 mg/dL 10/27/2023 5:55 AM [facility] Globulin 2.4 gm/dL 10/27/2023 5:55 AM [facility] Comment:Calculated Result A/G Ratio 1.7 g/dL 10/27/2023 5:55 AM [facility] BUN/Creatinine Ratio 6.0(L) 7.0 - 25.0 10/27/2023 5:55 AM [facility] Anion Gap 12.0 5.0 - 15.0 mmol/L 10/27/2023 5:55 AM [facility] eGFR 9.2(L) >60.0 mL/min/1.7 3 10/27/2023 5:55 AM [facility] Comment:<15 Indicative of ki dney failure Blood Venipuncture / Unknown 10/27/2023 5:00 AM EDT 10/27/2023 5:29 AM EDT Narrative [facility] - 10/27/2023 5:55 AM EDT GFR Normal >60 Chronic Kidney Disease <60 Kidney Failure <15 Jennifer Davison MD LAB BLOOD ORDERABLES Final Resul t Performing Organization Address [facility] de Phone Number [facility]
[address] [place] [address], * (ABNORMAL) POC Glucose Once (10/26/2023 3:05 PM EDT) Glucose 256(H) 70 - 130 mg/dL 10/26/2023 3:07 PM EDT [facility] Blood 10/26/2023 3:05 PM EDT 10/26/2023 3:07 PM EDT Jennifer Davison MD POINT OF CARE TEST ORDERABLES Fi nal Result Performing Organization Address [facility] de Phone Number [facility]
[address] [place] [address], [place] [phone] * Potassium (10/26/2023 2:23 PM EDT) Potassium 4.5 3.5 - 5.2 mmol/L 10/26/2023 3:13 PM EDT [facility] Comment:Slight hemolysis det ected by analyzer. Result may be falsely elevated. Blood Venipuncture / Unknown 10/26/2023 2:23 PM EDT 10/26/2023 2:55 PM EDT Jennifer Davison MD LAB BLOOD ORDERABLES Final Resul t Performing Organization Address [facility] Co de Phone Number [facility]
[address] [place] [address], * Hemodialysis Inpatient (10/26/2023 10:18 AM EDT) [...] CBC Auto Differential (10/26/2023 7:03 AM EDT) [facility] WBC 5.45 3.40 - 10.80 10*3/mm3 10/26/2023 7:34 AM EDT [facility] RBC 3.62(L) 4.14 - 5.80 10*6/mm3 10/26/2023 7:34 AM EDT [facility] Hemoglobin 11.4(L) 13.0 - 17.7 g/dL 10/26/2023 7:34 AM EDT [facility] Hematocrit 37.5 37.5 - 51.0 % 10/26/2023 7:34 AM EDT [facility] MCV 103.6(H) 79.0 - 97.0 fL 10/26/2023 7:34 AM EDT [facility] MCH 31.5 26.6 - 33.0 pg 10/26/2023 7:34 AM EDT [facility] MCHC 30.4(L) 31.5 - 35.7 g/dL 10/26/2023 7:34 AM EDT [facility] RDW 14.1 12.3 - 15.4 % 10/26/2023 7:34 AM EDT [facility] RDW-SD 53.8 37.0 - 54.0 fl 10/26/2023 7:34 AM EDT [facility] MPV 9.7 6.0 - 12.0 fL 10/26/2023 7:34 AM EDT [facility] Platelets 235 140 - 450 10*3/mm3 10/26/2023 7:34 AM EDT [facility] Neutrophil % 60.3 42.7 - 76.0 % [facility] Lymphocyte % 23.3 19.6 - 45.3 % 10/26/2023 7:34 AM [facility] Monocyte % 9.0 5.0 - 12.0 % 10/26/2023 7:34 AM [facility] Eosinophil % 3.1 0.3 - 6.2 % 10/26/2023 7:34 AM [facility] Basophil % 0.6 0.0 - 1.5 % 10/26/2023 7:34 AM [facility] Immature Grans % 3.7(H) 0.0 - 0.5 % 10/26/2023 7:34 AM [facility] Neutrophils, Absolute 3.29 1.70 - 7.00 10*3/mm3 10/26/2023 7:34 AM [facility] Lymphocytes, Absolute 1.27 0.70 - 3.10 10*3/mm3 10/26/2023 7:34 AM [facility] Monocytes, Absolute 0.49 0.10 - 0.90 10*3/mm3 10/26/2023 7:34 AM [facility] Eosinophils, Absolute 0.17 0.00 - 0.40 10*3/mm3 10/26/2023 7:34 AM [facility] Basophils, Absolute 0.03 0.00 - 0.20 10*3/mm3 10/26/2023 7:34 AM [facility] Immature Grans, Absolute 0.20(H) 0.00 - 0.05 10*3/mm3 10/26/2023 7:34 AM [facility] nRBC 0.0 0.0 - 0.2 /100 WBC 10/26/2023 7:34 AM [facility] Blood Venipuncture / Unknown 10/26/2023 7:03 AM EDT 10/26/2023 7:25 AM EDT Jayce Irizarry PA-C LAB BLOOD ORDERABLES Final Result [facility]
[address] [place] [address], * (ABNORMAL) Comprehensive Metabolic Panel (10/26/2023 7:03 AM EDT) Glucose 99 65 - 99 mg/dL 10/26/2023 7:52 AM EDT [facility] BUN 62(H) 6 - 20 mg/dL 10/26/2023 7:52 AM EDT [facility] Creatinine 10.13(H) 0.76 - 1.27 mg/dL 10/26/2023 7:52 AM EDT [facility] Sodium 141 136 - 145 mmol/L 10/26/2023 7:52 AM EDT [facility] Potassium 5.4(H) 3.5 - 5.2 mmol/L 10/26/2023 7:52 AM EDT [facility] Chloride 102 98 - 107 mmol/L 10/26/2023 7:52 AM EDT [facility] CO2 21.0(L) 22.0 - 29.0 mmol/L 10/26/2023 7:52 AM EDT [facility] Calcium 9.2 8.6 - 10.5 mg/dL 10/26/2023 7:52 AM EDT [facility] Total Protein 7.4 6.0 - 8.5 g/dL 10/26/2023 7:52 AM EDT [facility] Albumin 4.2 3.5 - 5.2 g/dL 10/26/2023 7:52 AM EDT [facility] ALT (SGPT) 8 1 - 41 U/L 10/26/2023 7:52 AM EDT [facility] AST (SGOT) 12 1 - 40 U/L 10/26/2023 7:52 AM EDT [facility] Alkaline Phosphatase 133(H) 39 - 117 U/L 10/26/2023 7:52 AM EDT [facility] Total Bilirubin 0.3 0.0 - 1.2 mg/dL 10/26/2023 7:52 AM EDT [facility] Globulin 3.2 gm/dL 10/26/2023 7:52 AM EDT [facility] Comment:Calculated Result A/G Ratio 1.3 g/dL 10/26/2023 7:52 AM EDT [facility] BUN/Creatinine Ratio 6.1(L) 7.0 - 25.0 10/26/2023 7:52 AM EDT [facility] Anion Gap 18.0(H) 5.0 - 15.0 mmol/L 10/26/2023 7:52 AM EDT [facility] eGFR 5.7(L) >60.0 mL/min/1. 73 10/26/2023 7:52 AM EDT [facility] Comment:<15 Indicative of ki dney failure Blood Venipuncture / Unknown 10/26/2023 7:03 AM EDT 10/26/2023 7:25 AM EDT Narrative [facility] - 10/26/2023 7:52 AM EDT GFR Normal >60 Chronic Kidney Disease <60 Kidney Failure <15 Jayce Irizarry PA-C LAB BLOOD ORDERABLES Final Result [facility]
[address] [place] [address], * (ABNORMAL) Blood Culture - Blood, Hand, Right (10/26/2023 5:36 AM EDT) Blood Culture Facmicheletamia hominis(AA) 11/03/2023 1:53 PM EDT [facility] Comment:Refer to previous bl ood culture collected on 10/26/2023 0500 and sent to [facility] for MICs Isolated from 11/03/2023 1:53 PM EDT [facility] Gram Stain Aerobic Bottle Gram positive cocci in pairs and chains(AA) 11/03/2023 1:53 PM EDT [facility] Blood Structure of right hand / Unknown Venipuncture / Unknown 10/26/2023 5:36 AM EDT 10/26/2023 6:40 AM EDT [facility] - 11/03/2023 1:53 PM EDT Less than seven (7) mL's of blood was collected. ??Insufficient quantity may yield false negative results. Terry Burgess MD MICROBIOLOGY - GENERAL ORD ERABLES Final Result [facility]
[address] [place] [address], [facility]
[address] [place] [address], * MRSA Screen, PCR (Inpatient) - Swab, Nares (10/26/2023 5:15 AM EDT) MRSA PCR Negative Negative CEPHEID GENEXPERT 10/26/2023 9:58 AM EDT [facility] Swab Structure of anterior naris / Unknown Collection / Unknown 10/26/2023 5:15 AM EDT 10/26/2023 5:28 AM EDT [facility] - 10/26/2023 9:58 AM EDT The negative predictive value of this diagnostic test is high and should only be used to consider de-escalating anti-MRSA therapy. A positive result may indicate colonization with MRSA and must be correlated clinically. MRSA Negative Jayce Irizarry PA-C MICROBIOLOGY - GENERAL ORD ERABLES Final Result [facility]
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 Swab in UTM/VTM, 2 HR TAT - Swab, Nasopharynx (10/26/2023 5:15 AM EDT) [facility] ADENOVIRUS, PCR Not Detected Not Detected BIOFIRE FILMARRAY 10/26/2023 6:20 AM EDT [facility] Coronavirus 229E Not Detected Not Detected BIOFIRE FILMARRAY 10/26/2023 6:20 AM EDT [facility] Coronavirus HKU1 Not Detected Not Detected BIOFIRE FILMARRAY 10/26/2023 6:20 AM EDT [facility] Coronavirus NL63 Not Detected Not Detected BIOFIRE FILMARRAY 10/26/2023 6:20 AM EDT [facility] Coronavirus OC43 Not Detected Not Detected BIOFIRE FILMARRAY 10/26/2023 6:20 AM EDT [facility] COVID19 Not Detected Not Detected - Ref. Range BIOFIRE FILMARRAY 10/26/2023 6:20 AM EDT [facility] Human Metapneumovirus Not Detected Not Detected BIOFIRE FILMARRAY 10/26/2023 6:20 AM EDT [facility] Human Rhinovirus/Enterov irus Not Detected Not Detected BIOFIRE FILMARRAY 10/26/2023 6:20 AM EDT [facility] Influenza A PCR Not Detected Not Detected BIOFIRE FILMARRAY 10/26/2023 6:20 AM EDT [facility] Influenza B PCR Not Detected Not Detected BIOFIRE FILMARRAY 10/26/2023 6:20 AM EDT [facility] Parainfluenza Virus 1 Not Detected Not Detected BIOFIRE FILMARRAY 10/26/2023 6:20 AM EDT [facility] Parainfluenza Virus 2 Not Detected Not Detected BIOFIRE FILMARRAY 10/26/2023 6:20 AM EDT [facility] Parainfluenza Virus 3 Not Detected Not Detected BIOFIRE FILMARRAY 10/26/2023 6:20 AM EDT [facility] Parainfluenza Virus 4 Not Detected Not Detected BIOFIRE FILMARRAY 10/26/2023 6:20 AM EDT [facility] RSV, PCR Not Detected Not Detected BIOFIRE FILMARRAY 10/26/2023 6:20 AM EDT [facility] Bordetella pertussis pcr Not Detected Not Detected BIOFIRE FILMARRAY 10/26/2023 6:20 AM EDT [facility] Bordetella parapertussis PCR Not Detected Not Detected BIOFIRE FILMARRAY 10/26/2023 6:20 AM EDT [facility] Chlamydophila pneumoniae PCR Not Detected Not Detected BIOFIRE FILMARRAY 10/26/2023 6:20 AM EDT [facility] Mycoplasma pneumo by PCR Not Detected Not [facility]ed [facility] 10/26/2023 6:20 AM EDT [facility] Swab Nasopharyngeal structure / Unknown Collection / Unknown 10/26/2023 5:15 AM EDT 10/26/2023 5:28 AM EDT [facility] - 10/26/2023 6:20 AM EDT In [...] antibiotic de-escalation to target atypical bacterial infection. Jayce Irizarry PA-C MICROBIOLOGY - GENERAL ORD ERABLES Final Result [facility]
[address] [place] [address], * Blood Culture ID, PCR - Blood, Arm, Right (10/26/2023 5:00 AM EDT) BCID, PCR Negative by BCID PCR. Culture to Follow. Negative by BCID PCR. Culture to Follow. BIOFIRE FILMARRAY 10/27/2023 4:58 PM EDT [facility] BOTTLE TYPE Anaerobic Bottle BIOFIRE FILMARRAY 10/27/2023 4:58 PM EDT [facility] Blood Structure of right upper limb / Unknown Venipuncture / Unknown 10/26/2023 5:00 AM EDT 10/26/2023 6:40 AM EDT Terry Burgess MD MICROBIOLOGY - GENERAL ORD ERABLES Final Result [facility]
[address] [place] [address], * (ABNORMAL) Blood Culture - Blood, Arm, Right (10/26/2023 5:00 AM EDT) Blood Culture [place] bronchialis( AA) GREGORY 11/06/2023 11:32 AM EDT [facility] Comment:ID and Susceptibilit y performed at [facility]. See scanned report. Isolated from Aerobic and Anaerobic Bottles 11/06/2023 11:32 AM EDT [facility] Gram Stain Anaerobic Bottle Gram positive cocci in pairs and chains(AA) 11/06/2023 11:32 AM EDT [facility] Gram Stain Aerobic Bottle Gram positive bacilli(AA) 11/06/2023 11:32 AM EDT [facility] Blood Structure of right upper limb / Unknown Venipuncture / Unknown 10/26/2023 5:00 AM EDT 10/26/2023 6:40 AM EDT Narrative [facility] - 11/06/2023 11:32 AM EDT Less than seven (7) mL's of blood was collected. ??Insufficient quantity may yield false negative results. Blood culture does not meet the specified criteria for PCR identification. ??If , immunocompromised, or clinical concern for meningitis, call lab to run BCID for Listeria monocytogenes. Terry Burgess MD MICROBIOLOGY - GENERAL ORD ERABLES Final Result [facility]
[address] [place] [id number], [facility]
[address] [place] [address], * ECG 12 Lead QT Measurement (10/26/2023 1:01 AM EDT) QT Interval 396 ms ECG QTC Interval 467 ms ECG 10/26/2023 1:01 AM EDT 10/26/2023 7:14 AM EDT Narrative ECG - 10/26/2023 7:14 AM EDT Test [...] (273) on 10/26/2023 7:14:04 AM Referred By: LEAX ? Confirmed By: Terry Burgess Procedure Note [...] (273) on 10/26/2023 7:14:04 AM Referred By: LEXA Confirmed By: Terry Burgess Terry Burgess MD ECG ORDERABLES Final Resu lt BH ECG * (ABNORMAL) CBC Auto Differential (10/26/2023 12:33 AM EDT) WBC 5.33 3.40 - 10.80 10*3/mm3 10/26/2023 12:55 AM EDT [facility] RBC 3.58(L) 4.14 - 5.80 10*6/mm3 10/26/2023 12:55 AM EDT [facility] Hemoglobin 11.3(L) 13.0 - 17.7 g/dL 10/26/2023 12:55 AM EDT [facility] Hematocrit 35.7(L) 37.5 - 51.0 % 10/26/2023 12:55 AM EDT [facility] MCV 99.7(H) 79.0 - 97.0 fL 10/26/2023 12:55 AM EDT [facility] MCH 31.6 26.6 - 33.0 pg 10/26/2023 12:55 AM EDT [facility] MCHC 31.7 31.5 - 35.7 g/dL 10/26/2023 12:55 AM EDT [facility] RDW 14.3 12.3 - 15.4 % 10/26/2023 12:55 AM EDT [facility] RDW-SD 52.8 37.0 - 54.0 fl 10/26/2023 12:55 AM EDT [facility] MPV 9.8 6.0 - 12.0 fL 10/26/2023 12:55 AM EDT [facility] Platelets 250 140 - 450 10*3/mm3 10/26/2023 12:55 AM EDT [facility] Neutrophil % 63.3 42.7 - 76.0 % 10/26/2023 12:55 AM EDT [facility] Lymphocyte % 20.5 19.6 - 45.3 % 10/26/2023 12:55 AM EDT [facility] Monocyte % 8.6 5.0 - 12.0 % 10/26/2023 12:55 AM EDT [facility] Eosinophil % 3.4 0.3 - 6.2 % 10/26/2023 12:55 AM EDT [facility] Basophil % 0.6 0.0 - 1.5 % 10/26/2023 12:55 AM EDT [facility] Immature Grans % 3.6(H) 0.0 - 0.5 % 10/26/2023 12:55 AM EDT [facility] Neutrophils, Absolute 3.38 1.70 - 7.00 10*3/mm3 10/26/2023 12:55 AM EDT [facility] Lymphocytes, Absolute 1.09 0.70 - 3.10 10*3/mm3 10/26/2023 12:55 AM EDT [facility] Monocytes, Absolute 0.46 0.10 - 0.90 10*3/mm3 10/26/2023 12:55 AM EDT [facility] Eosinophils, Absolute 0.18 0.00 - 0.40 10*3/mm3 10/26/2023 12:55 AM EDT [facility] Basophils, Absolute 0.03 0.00 - 0.20 10*3/mm3 10/26/2023 12:55 AM EDT [facility] Immature Grans, Absolute 0.19(H) 0.00 - 0.05 10*3/mm3 10/26/2023 12:55 AM EDT [facility] nRBC 0.0 0.0 - 0.2 /100 WBC 10/26/2023 12:55 AM EDT [facility] Blood Venipuncture / Unknown 10/26/2023 12:33 AM EDT 10/26/2023 12:52 AM EDT us Terry Burgess MD LAB BLOOD ORDERABLES Final Result [facility]
[address] [place] [address], * Magnesium (10/26/2023 12:33 AM EDT) Magnesium 1.9 1.6 - 2.6 mg/dL 10/26/2023 1:51 AM EDT [facility] Blood Line / Unknown 10/26/2023 12 :33 AM EDT 10/26/2023 1:33 AM EDT Terry Burgess MD LAB BLOOD ORDERABLES Final Result [facility]
[address] [place] [address], * (ABNORMAL) Procalcitonin (10/26/2023 12:33 AM EDT) [facility] Procalcitonin 0.44(H) 0.00 - 0.25 ng/mL 10/26/2023 1:54 AM EDT [facility] Blood Line / Unknown 10/26/2023 12 :33 AM EDT 10/26/2023 1:33 AM EDT Narrative [facility] - 10/26/2023 1:54 AM EDT [...] Day 4 values are available. Refer to http://www.hzbfoh-tib-ffvggykxmc.com Change in PCT <=80% A decrease of [...] diagnosed with severe sepsis or septic shock. us Terry Burgess MD LAB BLOOD ORDERABLES Final Result Performing Organization Address [facility] Co de Phone Number [facility]
[address] [place] [address], * Lactic Acid, Plasma (10/26/2023 12:33 AM EDT) Lactate 0.7 0.5 - 2.0 mmol/L 10/26/2023 1:15 AM EDT [facility] Comment:Falsely depressed re sults may occur on samples drawn from patients receiving N-Acetylcysteine (NAC) or Metamizole. Blood Venipuncture / Unknown 10/26/2023 12:33 AM EDT 10/26/2023 12:52 AM EDT us Terry Burgess MD LAB BLOOD ORDERABLES Final Result Performing Organization Address [facility] Co de Phone Number [facility]
[address] [place] [address], [place] [phone] * Protime-INR (10/26/2023 12:33 AM EDT) Protime 14.2 12.2 - 14.5 Seconds 10/26/2023 1:14 AM EDT [facility] INR 1.08 0.89 - 1.12 10/26/2023 1:14 AM EDT [facility] Blood Venipuncture / Unknown 10/26/2023 12:33 AM EDT 10/26/2023 12:52 AM EDT us Terry Burgess MD LAB BLOOD ORDERABLES Final Result Performing Organization Address [facility] Co de Phone Number [facility]
[address] [place] [address], * (ABNORMAL) aPTT (10/26/2023 12:33 AM EDT) PTT 29.0(L) 60.0 - 90.0 seconds 10/26/2023 1:14 AM EDT [facility] Blood Venipuncture / Unknown 10/26/2023 12:33 AM EDT 10/26/2023 12:52 AM EDT Narrative [facility] - 10/26/2023 1:14 AM EDT PTT = The equivalent PTT values for the therapeutic range of heparin levels at 0.3 to 0.5 U/ml are 60 to 70 seconds. us Terry Burgess MD LAB BLOOD ORDERABLES Final Result Performing Organization Address [facility] Co de Phone Number [facility]
[address] [place] [address], * (ABNORMAL) Comprehensive Metabolic Panel (10/26/2023 12:33 AM EDT) Glucose 104(H) 65 - 99 mg/dL 10/26/2023 1:51 AM EDT [facility] BUN 60(H) 6 - 20 mg/dL 10/26/2023 1:51 AM EDT [facility] Creatinine 9.74(H) 0.76 - 1.27 mg/dL 10/26/2023 1:51 AM EDT [facility] Sodium 142 136 - 145 mmol/L 10/26/2023 1:51 AM [facility] Potassium 5.8(H) 3.5 - 5.2 mmol/L 10/26/2023 1:51 AM [facility] Comment:Slight hemolysis det ected by analyzer. Result may be falsely elevated. Chloride 102 98 - 107 mmol/L 10/26/2023 1:51 AM [facility] CO2 22.0 22.0 - 29.0 mmol/L 10/26/2023 1:51 AM [facility] Calcium 8.8 8.6 - 10.5 mg/dL 10/26/2023 1:51 AM [facility] Total Protein 7.0 6.0 - 8.5 g/dL 10/26/2023 1:51 AM [facility] Albumin 4.2 3.5 - 5.2 g/dL 10/26/2023 1:51 AM [facility] ALT (SGPT) 8 1 - 41 U/L 10/26/2023 1:51 AM [facility] AST (SGOT) 14 1 - 40 U/L 10/26/2023 1:51 AM [facility] Alkaline Phosphatase 134(H) 39 - 117 U/L 10/26/2023 1:51 AM [facility] Total Bilirubin 0.3 0.0 - 1.2 mg/dL 10/26/2023 1:51 AM [facility] Globulin 2.8 gm/dL 10/26/2023 1:51 AM [facility] Comment:Calculated Result A/G Ratio 1.5 g/dL 10/26/2023 1:51 AM [facility] BUN/Creatinine Ratio 6.2(L) 7.0 - 25.0 10/26/2023 1:51 AM [facility] Anion Gap 18.0(H) 5.0 - 15.0 mmol/L 10/26/2023 1:51 AM [facility] eGFR 6.0(L) >60.0 mL/min/1.7 3 10/26/2023 1:51 AM EDT [facility] Comment:<15 Indicative of ki dney failure Blood Line / Unknown 10/26/2023 12 :33 AM EDT 10/26/2023 1:33 AM EDT Narrative [facility] - 10/26/2023 1:51 AM EDT GFR Normal >60 Chronic Kidney Disease <60 Kidney Failure <15 Terry Burgess MD LAB BLOOD ORDERABLES Final Result [facility]
[address] [place] [address], * XR Chest 1 View (10/25/2023 11:15 PM EDT) Anatomical Region Laterality Modality Body N/A Radiographic Sobia ging 10/25/2023 11:2 0 PM EDT Impressions 10/25/2023 11:22 PM EDT Impression: Right lower lobe pneumonia. Follow-up to resolution recommended. Electronically Signed: Ashli Abreu MD 10/25/2023 11:22 PM EDT Workstation ID: [id number] Narrative 10/25/2023 11:22 PM EDT XR CHEST [...] MD 10/25/2023 11:22 PM EDT Workstation ID: [id number] Terry Burgess MD IMG DIAGNOSTIC IMAGING ORD ERABLES Final Result documented in this encounter Visit Diagnoses Not on filedocumented in this encounter Admitting Diagnoses Diagnosis Arm [...] Given 10/27/2023 1:29 PM EDT 650 mg albuterol (PROVENTIL) nebulizer solution 0.083% 2.5 mg/3mL [...] Given 10/31/2023 8:34 AM EDT 0.25 mcg carBAMazepine (TEGretol) tablet 200 mg 200 mg, [...] 5:06 PM EDT 2,000 mg 200 mL/hr chlorhexidine (IRRISEPT) 0.05 % in sterile water As Needed, Starting on Mon10/27/23 at 1557 Given 10/27/2023 3:57 PM EDT 4 50 mL cinacalcet (SENSIPAR) tablet 90 mg 90 mg, Oral, Nightly, First dose on Bobbi 10/26/23 at 2100, Do not crush or chew [...] Daily, First dose (after last modification) on Bobbi 10/26/23 at 2100, Group 1 [...] Every 6 Hours PRN, Allergies, Starting on [facility] 10/28/23 at 1845, Caution: Look alike/sound alike drug alert. This med may be ordered in other forms and routes. Before giving verify the last time the drug was given by any route/form. Given 10/30/2023 10:11 PM EDT 25 mg Given 10/30/2023 3:29 PM EDT 25 mg Given 10/29/2023 2:11 AM EDT 25 mg fenofibrate (TRICOR) tablet 145 mg 145 mg, Oral, Daily, First dose on [facility] 10/26/23 at 0900, Take with food., Reason for continuation of original order: Elevated triglycerides and pancreatitis Given 11/02/2023 9:45 AM EDT 145 mg Given 11/01/2023 8:48 AM EDT 145 mg Given 10/31/2023 8:34 AM EDT 145 mg folic acid (FOLVITE) tablet 1,000 mcg 1,000 mcg, Oral, Daily, First dose on [facility]bi 10/26/23 at 0900 Given 11/02/2023 9:45 AM EDT 1,000 mcg Given 11/01/2023 8:48 AM EDT 1,000 mcg Given 10/31/2023 8:32 AM EDT 1,000 mcg gabapentin (NEURONTIN) capsule 300 mg 300 mg, Oral, Nightly, First dose on [facility]bi 10/26/23 at 2100, {MICHELE} Given 11/01/2023 10:22 PM EDT 300 mg Given 10/31/2023 10:05 PM EDT 300 mg Given 10/30/2023 8:45 PM EDT 300 mg glucagon (GLUCAGEN) injection 1 mg 1 mg, Intramuscular, Every 15 Minutes PRN, Low Blood Sugar, Blood Glucose Less Than 70, Starting on Mon10/26/23 at 0639, Blood Glucose Less Than 70 - Patient Without IV Access - Unresponsive, NPO or Unable To Safely Swallow Reconstitute powder for injection by adding 1 mL of oval or circular glass cutter-supplied sterile diluent or sterile water for injection [...] 8:48 AM EDT 1,200 mg heparin (porcine) injection 2,000 Units 2,000 Units, Intracatheter, As Needed, hd, Starting on Mon10/26/23 at 1032, For 10 days, Indications: hdIndications:hd Given 11/02/2023 3:30 PM EDT 2, 000 Units Given 11/01/2023 5:10 PM EDT 2,000 Units Given 10/26/2023 1:57 PM EDT 2,000 Units hydrALAZINE (APRESOLINE) tablet 100 mg 100 mg, Oral, 3 Times Daily, First dose on [facility]bi 10/26/23 at 0715, Hold for SBP less than 100, DBP less than 60 Caution: Look alike/sound alike drug alert Given 11/02/2023 6:05 AM EDT 100 mg Given 11/01/2023 6:42 PM EDT 100 mg Given 10/31/2023 1:04 PM EDT 100 mg Insulin Lispro (humaLOG) injection 2-7 Units [...] 3 mL lidocaine (XYLOCAINE) 1 % injection As Needed, Starting on Mon10/27/23 at 1557 Given 10/27/2023 3:57 PM EDT 3 0 mL mycophenolate (CELLCEPT) capsule 250 mg 250 mg, [...] Depression, Starting on [facility] 10/26/23 at 0351 NIFEdipine XL (PROCARDIA XL) 24 [...] 4 Hours PRN, Moderate Pain, Starting on [place] 10/29/23 at 0735, Based on patient request [...] tablet 40 mg 40 mg, Oral, Every [facility] Hospitalist, First dose on [facility]bi 10/26/23 at 0642, Do not crush or chew the capsules or tablets. The drug may not work as designed if the capsule or tablet is crushed or chewed. Swallow whole. Swallow whole; do not crush, split, or chew. Given 11/02/2023 6:05 AM EDT 40 mg Given 11/01/2023 6:07 AM EDT 40 mg Given 10/31/2023 6:03 AM EDT 40 mg polyethylene glycol (MIRALAX) packet 17 g 17 g, Oral, Daily PRN, Constipation, Use if senna-docusate is ineffective, Starting on [facility] 10/26/23 at 0626, Use if no bowel movement after 12 hours. Mix in 6-8 ounces of water. Use 4-8 ounces of water, tea, or juice for each 17 gram dose. prochlorperazine (COMPAZINE) injection 5 mg 5 mg, Intravenous, Every 6 Hours PRN, Nausea, Vomiting, Starting on Mon10/31/23 at 1120, If multiple N/V medications ordered, use in the following order: Ondansetron, Prochlorperazine, Promethazine. Use PO unless patient refuses or patient unable to swallow. Given 11/01/2023 10 :33 PM EDT 5 mg Given 11/01/2023 9:46 [...] EDT 80 mg sodium chloride 0.9 % flush 10 mL 10 mL, Intravenous, As Needed, Line Care, Starting on Mon10/25/23 at 2240 sodium chloride 0.9 % flush 10 mL 10 mL, Intravenous, Every 12 Hours Scheduled, First dose on Mon10/26/23 at 0900 Given 11/02/2023 9:46 AM EDT 10 mL Given 11/01/2023 10:23 PM EDT 10 mL Given 10/31/2023 10:10 PM EDT 10 mL sodium chloride 1,000 mL with heparin (porcine) 10,000 Units mixture As Needed, Starting on Mon10/27/23 at 1557 Given 10/27/2023 3:57 PM EDT sodium zirconium cyclosilicate (LOKELMA) packet 10 g [...] hours before or 2 hours after dose. sterile water irrigation solution As Needed, Starting on Mon10/27/23 at 1557 Given 10/27/2023 3:57 P M EDT 1,000 mL documented in this encounter Active and Recently [...] 81 mg, Oral, Daily, First dose on Bobbi 10/26/23 at 0900, Herbal/drug interaction: Avoid use with [...] Boyer RN) 0946 (Given - Provider: Lakeshia Nowak RN) calcitriol (ROCALTROL) capsule 0.25 mcg 0.25 mcg, Oral, Daily, First dose on Bobbi 10/26/23 at 0900 0834 (Given - Provider: Kody Boyer RN) 0855 (Given - Provider: Kody Boyer RN) 0946 (Given - Provider: Lakeshia Nowak RN) carBAMazepine (TEGretol) tablet 200 mg 200 mg, Oral, Nightly, First dose on Bobbi 10/26/23 at 2100, Group 1 (Yellow) Hazardous Drug - See Handling Guide 2206 (Given - Provider: Mukul Styles RN) 222 (Given - Provider: Jovanny Lopez RN) carvedilol (COREG) tablet 25 mg 25 mg, Oral, 2 Times Daily With Meals, First dose on Mon10/26/23 at 0800, Hold for SBP less than [...] RN) 0945 (Given - Provider: Lakeshia Nowak, JANA)1805 (Not Given - Provider: Lakeshia Nowak RN [...] RN) 1605 (New Bag - Provider: Lakeshia Nowak RN) cinacalcet (SENSIPAR) tablet 90 mg 90 mg, Oral, Nightly, First dose on Mon10/26/23 at 2100, Do not crush or chew the capsules or tablets. The drug may not work as designed if the capsule or tablet is crushed or chewed. Swallow whole. Swallow whole. Do not crush, break, or chew tablet. Take with food. 2206 (Given - Provider: Mukul Styles RN) 2220 (Given - Provider: Jovanny Lopez RN) cycloSPORINE modified (NEORAL) capsule 100 mg 100 mg, Oral, 2 Times Daily, First dose (after last modification) on Bobbi 10/26/23 at 2100, Group 1 (Yellow) Hazardous Drug - See Handling Guide 0834 (Given - Provider: Kody Boyer RN)2212 (Given - Provider: Mukul Styles RN) 0854 (Given - Provider: Kody Boyer RN)2223 (Given - Provider: Jovanny Lopez RN) 0945 (Given - Provider: Lakeshia Nowak, JANA) fenofibrate (TRICOR) tablet 145 mg 145 mg, Oral, Daily, First dose on Bobbi 10/26/23 at 0900, Take with food., Reason for [...] Lopez RN) 0946 (Given - Provider: Lakeshia Nowak RN) hydrALAZINE (APRESOLINE) tablet 100 mg 100 mg, [...] Education 1407 (Given - Provider: Gabino Schwartz, EXERCISE SCIENTIST)1741 (Not Given - Provider: Gabino Schwartz, EXERCISE SCIENTIST - Reason: Other)2018 (Given - Provider: Gena Greenfield, [employer]KER) 0740 (Given - Provider: Bayron Fregoso, EXERCISE SCIENTIST)1234 (Not Given - Provider: Bayron Fregoso, EXERCISE SCIENTIST - Reason: Patient not available - Comment: OFF FLOOR FOR DIALYSIS)1657 (Given - Provider: Bayron Fregoso, EXERCISE SCIENTIST) LORazepam (ATIVAN) tablet 2 mg 2 mg, Oral, Once, On Mon11/02/23 at 1815, For 1 dose, {MICHELE} Caution: [...] Lopez, JANA) 0946 (Given - Provider: Lakeshia Nowak RN) NIFEdipine XL (PROCARDIA XL) 24 hr tablet 90 mg 90 mg, Oral, 2 Times Daily, First dose on Mon10/26/23 at 0900, Caution: Look alike/sound alike drug alert. Avoid grapefruit juice. Swallow whole. Do not crush, split or chew. 0832 (Given - Provider: Kody Boyer RN)2044 (Not Given - Provider: Mukul Styles RN - Reason: Contraindicated) 0848 (Given - Provider: Kody Boyer RN)222 (Given - Provider: Jovanny Lopez, JANA) 0945 (Given - Provider: Lakeshia Nowak, JANA) pantoprazole (PROTONIX) EC tablet 40 mg 40 mg, Oral, Every Neurology Hospitalist, First dose on Mon10/26/23 at 0642, Do not crush or chew [...] 0900 0834 (Given - Provider: Kody Boyer RN)2210 (Given - Provider: Mukul Styles RN) 1937 (Canceled Entry - Provider: Kody Boyer RN)222 (Given - Provider: Jovanny Lopez RN) 0946 [...] Every 6 Hours PRN, Allergies, Starting on [facility] 10/28/23 at 1845, Caution: Look alike/sound alike [...] for injection by adding 1 mL of oval or circular glass cutter-supplied sterile diluent or sterile water for injection [...] 4 Hours PRN, Severe Pain, Starting on [place] 10/29/23 at 1301, Based on patient request [...] Kody Boyer RN)1905 (Given - Provider: Mukul Styles RN) 0941 (Given - Provider: Kody Boyer RN)1300 (Given - Provider: Adam Wood RN) oxyCODONE-acetaminophen (PERCOCET) 5-325 MG per tablet 1 tablet 1 tablet, Oral, Every 4 Hours PRN, Moderate Pain, Starting on [place] 10/29/23 at 0735, Based on patient request [...] Provider: Jovanny Lopez RN - Reason: Patient/family refused)2227 (Canceled Entry - Provider: Jovanny Lopez RN)2232 (Not Given: See Alt - Provider: Jovanny [...] 2 Times Daily PRN, Constipation, Starting on Bobbi 10/26/23 at 0626, Start bowel management regimen if patient has not had a bowel movement after 12 hours. simethicone (MYLICON) chewable tablet 80 mg 80 mg, Oral, 4 Times Daily PRN, Flatulence, Starting on Mon10/31/23 at 1910 1913 (Given - Provider: Kody Boyer, JANA) sodium chloride 0.9 % flush 10 mL(Linked [...] the drug was given by any route/form. 1709 (Given - Provider: Adam Wood RN) heparin [...] documented as of this encounter Care Teams Bottomer Operator Relationship Specialty Start Date End Date Edgar Fournier MD [address] [place] [address] PCP - General Family Medicine 04/27/20 documented as of this encounter
--- OUTSIDE RECORDS SUMMARY | 2024-07-12 12:14 | XMS_ITS | Encounter Summary ---
Author Organization [facility] Address [address] [place] [address] Care Team Providers Care Flight Communications Officer Name Role Phone Edgar Fournier MD Primary Care Provider [phone] Reason for Visit * Reason Comments Vascular Access Problem * Auth/Cert (Routine) Specialty Diagnoses / Procedures Referred By Contac t Referred To Contact Diagnoses Hyperkalemia Referral ID Status Reason Start Date Expiration Date Visits Re quested Visits Authorized [id number] 1 1 Encounter Details Date Type Department Care Team (Late st Contact Info) Description 08/10/2023 9:20 PM EST - 08/14/2023 10:51 AM [facility] Hospital Encounter [address] [place] [address] Danya Garcia MD [address] [facility] [place] [address] Kaila Jhaveri MD [address] [place] [address] Shiloh Maradiaga, DO [address] [address] Cellulitis of left forearm (Primary Dx); Complication of AV dialysis fistula, initial encounter; End-stage renal disease on hemodialysis; Left forearm pain; Hyperkalemia Discharge Disposition: Home or Self Care Social History Tobacco Use Types Packs/Day Years Used Date Smoking Tobacco: Never Smokeless Tobacco: Never Tobacco Cessation:Counseling Given: No Alcohol Use Standard Drinks/Week Comments Never 0 [...] Sign Reading Time Taken Comments Blood Pressure 153/85 08/14/2023 6:57 AM EST Pulse 81 08/14/2023 8:38 AM EST Temperature 36.7 ??C (98 ??F) 08/14/2023 6:57 AM EST Respiratory Rate 17 08/14/2023 6:57 AM EST Oxygen Saturation 96% 08/14/2023 6:57 AM EST Inhaled Oxygen Concentration - - Weight 136 kg (300 lb) 08/10/2023 8:24 PM EST Height 172.7 cm (5' 8 ) 08/10/2023 8:24 PM EST Body Mass Index 45.61 08/10/2023 8:24 PM EST documented in this encounter Discharge Summaries * Shiloh Maradiaga, DO - 08/14/2023 9:49 AM EST Images from the original note were not included. [facility] Medicine Services DISCHARGE SUMMARY Patient Name: Aiden Stauffer Jr. : 1975 Date of Admission: 08/10/2023 9:20 PM Date of Discharge: 08/14/2023 Primary Care Physician: Edgar Fournier MD Consults Date and Time Order Name Status Description 08/11/2023 10:17 AM Inpatient Nephrology Consult Hospital Course Presenting Problem: LUE pain Active Hospital Problems Diagnosis POA AVF (arteriovenous fistula) [I77.0] Yes Malfunction of arteriovenous dialysis fistula [T82.590A] Yes History of liver transplant [Z94.4] Not Applicable Immunosuppression [D84.9] Yes Type 2 diabetes mellitus [E11.9] Yes ESRD (end stage renal disease) [N18.6] Yes SAL (nonalcoholic steatohepatitis) [K75.81] Yes Resolved Hospital Problems Diagnosis Date Resolved POA Hyperkalemia [E87.5] 08/13/2023 Yes Hospital Course: Aiden Stauffer Jr. is a 48 y.o. male with PMH of T2DM, SAL cirrhosis s/p liver transplant in 2018 on chronic immunosuppression, ESRD on home HD via LUE AVF, h/o discitis/epidural abscess s/p laminectomy and I&D of abscess in 2019 who presented with complaints of LUE pain that radiated across chest anteriorly and described as pressure and HD access issues with associated swelling, redness, warmth and small area of what appeared to be pus at access site (although not draining). This patient's problems and plans were partially entered by my partner and updated as appropriate by me 08/14/23. Hyperkalemia Hyperphosphatemia ESRD on HD Malfunctioning AVF with concern for infected graft -- initial K+ 6.8, improved to 5.7 after treatment in the ED. Some hemolysis noted on repeat labs, so likely slightly higher than true serum value -- ED notified Dr. Edwards with [facility], they are on board and plan for HD. He is aware that alternative routes of access may be warranted. -- IR performed fistulogram with notec hypertrophy of the forearm cephalic vein, occlusion of the cephalic vein just above the elbow and collateral flow via antecubital vein and the forearm milk condenser vein into forearm brachial vein and via the tortuous medial upper arm collateral veins including the brachial and basilic veins. There is 80-90% stenosis of the multiple sites of the outflow veins. Could not access the stenotic segments as mentioned above. follow up with vascular surgery as outpatient for this issue. Right tunneled cath was placed 08/11/23 -- antibiotics changed to oral- continue on discharge -- blood cultures NG x72H -- no leukocytosis and afebrile, however, he is on immunosuppression -- uses Xphozah 20mg BID at home (phos binder), not on formulary here H/o SAL cirrhosis s/p liver transplant -- continue antirejection meds T2DM -- continue home meds -- HbA1C 6.5 H/o discitis/epidural abscess (2019) -- s/p laminectomy and I&D of abscess by Dr. Garnica. Followed by ID/Dr. Rodriguez for his complete course of ABX Discharge Follow Up Recommendations for outpatient labs/diagnostics: - f/u with vascular surgery outpatient in 1 month - Hydralazine changed to 100mg PO TID for blood pressure- script sent to pharmacy - Cyclosporine 100mg PO BID increased- script sent to pharmacy - discharge abx: Ceftin 250mg PO Bid and Doxycycline 100mg PO BID-- script sent to pharmacy - per Nephrology, Dr. Kay: Patient needs re-education/training for Home HD using TDC. Patient believes he has received necessary training in the past. Would recommend holding off on HHD on discharge until follows up with his clinic on 08/15/23. Day of Discharge HPI: Patient stable for discharge home. Review of Systems Gen- No fevers, chills CV- No chest pain, palpitations Resp- No cough, dyspnea GI- No N/V/D, abd pain Vital Signs: Temp: [97.7 ??F (36.5 ??C)-99 ??F (37.2 ??C)] 98 ??F (36.7 ??C) Heart Rate: [81-104] 81 Resp: [17-20] 17 BP: (148-170)/(74-96) 153/85 Flow (L/min): [2-3] 2 Physical Exam: Constitutional: No acute distress, awake, alert HENT: NCAT, mucous membranes moist Respiratory: Clear to auscultation bilaterally, respiratory effort normal Cardiovascular: RRR, no murmurs, rubs, or gallops Gastrointestinal: Positive bowel sounds, soft, nontender, nondistended, obese Musculoskeletal: No bilateral ankle edema Psychiatric: Appropriate affect, cooperative Neurologic: Oriented x 3, HILTON, speech clear Skin: No rashes noted. Left arm AV fistula site swollen, thrill noted, minimal serosanguinous drainage note, increased redness from overnight Pertinent and/or Most Recent Results LAB RESULTS: Lab 08/14/23 0631 08/13/23 0550 08/12/23 0559 08/11/23 1140 08/11/23 0451 08/10/23 2130 WBC 5.20 5.16 6.39 -- -- 9.22 HEMOGLOBIN 10.9* 11.0* 11.5* -- -- 13.9 HEMATOCRIT 34.0* 34.8* 36.3* -- -- 43.3 PLATELETS 190 187 197 -- -- 278 NEUTROS ABS 2.86 3.02 -- -- -- 6.08 IMMATURE GRANS (ABS) 0.10* 0.11* -- -- -- 0.17* LYMPHS ABS 1.35 1.20 -- -- -- 1.97 MONOS ABS 0.56 0.52 -- -- -- 0.55 EOS ABS 0.31 0.29 -- -- -- 0.42* MCV 103.0* 102.4* 101.7* -- -- 103.1* PROCALCITONIN -- -- -- -- 0.33* -- LACTATE -- -- -- -- -- 1.0 PROTIME -- -- -- 13.7 -- -- Lab 08/14/23 0632 08/13/23 0550 08/12/23 0559 08/11/23 0451 08/11/23 0048 SODIUM 134* 134* 137 137 136 POTASSIUM 5.1 5.0 6.4* 5.7* 6.8* CHLORIDE 96* 98 101 102 101 CO2 18.0* 22.0 19.0* 18.0* 19.0* ANION GAP 20.0* 14.0 17.0* 17.0* 16.0* BUN 58* 41* 61* 83* 80* CREATININE 11.02* 8.59* 10.39* 12.28* 12.29* EGFR 5.2* 7.0* 5.6* 4.5* 4.5* GLUCOSE 141* 148* 134* 104* 130* CALCIUM 8.6 9.1 8.8 8.7 8.6 PHOSPHORUS -- 7.5* -- 4.7* -- HEMOGLOBIN A1C -- -- 6.50* -- -- TSH -- -- 2.790 -- -- Lab 08/11/23 0048 TOTAL PROTEIN 7.0 ALBUMIN 4.1 GLOBULIN 2.9 ALT (SGPT) <5 AST (SGOT) <5 BILIRUBIN 0.3 ALK PHOS 197* Lab 08/11/23 1140 PROTIME 13.7 INR 1.03 Lab 08/12/23 0559 CHOLESTEROL 246* LDL CHOL 115* HDL CHOL 25* TRIGLYCERIDES 594* Brief Urine Lab Results None Microbiology Results (last 10 days) Procedure Component Value - Date/Time MRSA Screen, PCR (Inpatient) - Swab, Nares [[id number]] (Normal) Collected: 08/10/23 2334 Lab Status: Final result Specimen: Swab from Nares Updated: 08/11/23740 MRSA PCR Negative Narrative: The negative predictive value of this diagnostic test is high and should only be used to consider de-escalating anti-MRSA therapy. A positive result may indicate colonization with MRSA and must be correlated clinically. MRSA Negative Blood Culture - Blood, Hand, Right [[id number]] (Normal) Collected: 08/10/232149 Lab Status: Preliminary result Specimen: Blood from Hand, Right Updated: 08/14/2314 Blood Culture No growth at 3 days Blood Culture - Blood, Arm, Right [[id number]] (Normal) Collected: 08/10/232129 Lab Status: Preliminary result Specimen: Blood from Arm, Right Updated: 08/14/2314 Blood Culture No growth at 3 days IR Angioplasty AV Fistula / Graft Arterial Result Date: 08/11/2023 IR FISTULOGRAM LEFT FOREARM FISTULA. History: Left forearm AV fistula. High pressure in fistula. A focal area of infection at one of the access sites. Dialysis cannot be provided. Shaper And Presser: Victor Manuel Castro M.D. Modality: Sonography and fluoroscopy. DOSE REDUCTION: The examination was performed according to departmental dose-optimization program. Fluoro time: 19.8 minutes Radiation dose: 16.3 mGy air Kerma. Sedation: The sedation was administered and the patient's vital signs monitored throughout the procedure and recorded in the patient's medical record by the nurse under my direct supervision. Please see the report on tunneled dialysis catheter placement for the sedation medicine and dosis along with the sedation time. The TDC was placed immediately after this procedure. Anesthesia: Lidocaine 1% local infiltration. Medicines: None Contrast medium: Isovue 300, 25 cc. Estimated blood loss: < 5 cc. Technique: [...] draped in the maximal applicable sterile fashion. The patient was laid supine on the procedure table. The surgical site was prepped with chlorhexidine gluconate and draped in the standard sterile fashion. After local anesthesia and dermatotomy, the fistula was accessed in antegrade direction in the distal forearm region. Through the needle, a 018 guidewire was placed in the fistula followed by placement of a conversion sheath. The sheath was then used for performing a fistulogram and an outflow venogram. Later in the case, completion central venogram was also per formed There is presence of a hypertrophic left forearm radiocephalic fistula. There is a blind ending cephalic vein just above the elbow joint. There is flow via the antecubital vein into the milk condenser vein and then into the basilic and brachial veins. There is severe apparently 80-90% stenosis at the point where the milk condenser vein meets the brachial vein and also in the brachial and basilic veins approximately 3 cm above the elbow joint line. The fistula is tortuous and because of the collateralization, it is almost a Z-shaped configuration with stenosis at the sharp bend below the elbow.There is no other stenosis in the fistula outflow. Over the wire, a 7 Albanian sheath was placed. Diligent effort was made to cross the milk condenser vein into the brachial vein using multiple types of angled glide wires, catheters, coaxial 5 Albanian sheath through the 7 Albanian sheath. These were unsuccessful. I also punctured the blind-ending part of the cephalic vein above the elbow joint directly under ultrasound guidance after local anesthesia with a micropuncture device. Pertinent ultrasound images were stored in the the PACS. I was still not able to cross the point of sharp angulation/stenosis of the milk condenser vein joining the brachial vein. This is a large high flow fistula. Reflux run was not performed. The access was withdrawn and hemostasis secured by application of a pursestring suture and/or manual compression. An aseptic dressing was applied. The patient was then transferred to the recovery area and discharged from the department in stable condition. Complications: None immediate. Findings: As above. Impression: Left forearm radiocephalic fistula with hypertrophy of the forearm cephalic vein, occlusion of the cephalic vein just above the elbow and collateral flow via antecubital vein and the forearm milk condenser vein into forearm brachial vein and via the tortuous medial upper arm collateral veins including the brachial and basilic veins. There is 80-90% stenosis of the multiple sites of the outflow veins. I could not access the stenotic segments as mentioned above. A tunneled dialysis catheter was placed via right external jugular vein. 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 There are 2 options to manage the left forearm AV fistula. 1 option could be to create a jump graft between the cephalic vein in the upper arm to the basilic vein in the upper arm beyond the stenosis. De renan brachial basilic fistula would be another option. The IR based option is to bring the patient back withanesthesia support because of multiple comorbidities and go retrograde via the left external jugular vein or antegrade via the left ulnar vein to perform angioplasty of these otherwise difficult to reach segments. Please remove the pursestring suture after 24 hours. Thank you for the opportunity toassist in the care of your patient. Electronically Signed: Victor Manuel Castro MD 08/11/2023 5:56 PM ESTWorkstation ID: [id number] Duplex Hemodialysis Access CAR Result Date: 08/11/2023 S/P left radio cephalic AVF. Inflow artery and proximal anastomosis velocities appear within normal/expected limits. Low flow velocities noted within the proximal and mid portions of the fistula withresistive waveforms. Primary outflow of the fistula noted through the brachial vein. IR Tunneled Catheter Result Date: 08/11/2023 IR TUNNELED CATHETER History: dialysis Shaper And Presser: Victor Manuel Castro MD. Modality: Sonography and fluoroscopy Fluoro time: 2.2 minutes Radiation Dose: 50.8 mGy air Kerma. SEDATION: Moderate sedation was administered. 1 milligram of Versed and 50 micrograms of fentanyl IV was used for moderate sedation. Total intra service time of sedation was 166 minutes. The sedation was administered and the patient's vital signs monitored throughout the procedure and recorded in the patient's medical record by the nurse under my direct supervision. Medicines: Not applicable. Anesthesia: Lidocaine 1% withepinephrine, local infiltration Estimated blood loss: < 5 cc. Technique: A thorough discussion of the risks, benefits, and alternatives of the procedure, and if applicable, moderate sedation, was carried out with the patient. This was done at the time of initial consent process for left forearm AV fistula treatment. They were encouraged to ask any questions. [...] preliminary ultrasonogram was performed of the target that revealed a patent and compressible Right internal jugular vein. Pertinent ultrasound images were stored in the PACS for documentation. A sterile prep and drape of the right neck and upper chest was performed using maximal sterile technique. Using aseptic precautions, real-time ultrasound guidance, the target vein was accessed after local anesthetic infiltration and dermatotomy with an access needle. A guidewire was advanced into the central venous system under fluoroscopic guidance. The guidewire however could not be advanced beyond the more central part of the right internal jugular vein. The patient has a history of a prior right IJ tunneled dialysis catheter. The vein is presumed occluded. There was a patentright external jugular vein. Using an identical technique, the vein was accessed with a micropuncture device after local anesthesia and dermatotomy and a 018 guidewire was advanced into the central venous system under fluoroscopy without difficulty. Over the wire following standard technique a peel-away sheath was placed. After local anesthesia, an incision was created at the exit site location and a cuffed tunneled dialysis catheter of an appropriate length was tunneled from the exit site to the venotomy site using a tunneling device. The catheter was advanced into the venous system through the peel-away sheath which was removed. The catheter aspirated and flushed well and was terminally packed with heparin 1000 units per cc. The catheter was secured to skin using nonabsorbable suture and a CHG dressing applied. The venotomy site was closed using Dermabond. An aseptic dressing was applied using the protocol for Dermabond. The patient was transferred to the recovery area and was discha rged from the department in stable condition. Complications: None immediate. Device: 15.5 Albanian x 23 cm cuff to tip Duraflow catheter. Findings: Patent and compressible Right internal jugular vein which is centrally most likely occluded. Patent and compressible right external jugular vein. Final image shows the catheter to be in good position with the catheter tip in the right atrium, an excellent position for use. There is no complication. Impression: Successful ultrasound and fluoroscopic guided right external jugular vein route cuffed tunneled hemodialysis catheter placement as described above. Thank you for the opportunity to assistin the care of your patient. Electronically Signed: Victor Manuel Castro MD 08/11/2023 4:21 PM EST Workstation ID: [id number] XR Chest 1 View Result Date: 08/10/2023 XR CHEST 1 VW Date of Exam: 08/10/2023 9:27 PM EST Indication: chest discomfort Comparison: Chest radiograph 04/28/2020 Findings: Cardiomediastinal silhouette is unchanged. Left upper lobe calcified granuloma. No focal consolidation or overt pulmonary edema. No pleural effusion or pneumothorax. Osseous structures are unremarkable. Impression: No evidence of acute cardiopulmonary disease. Electronically Signed: Dmitry Galeano MD 08/10/2023 10:00 PM EST Workstation ID: [id number] Results for orders placed during the hospital encounter of 08/10/23 Duplex Hemodialysis Access CAR Interpretation Summary S/P left radio cephalic AVF. Inflow artery and proximal anastomosis velocities appear within normal/expected limits. Low flow velocities noted within the proximal and mid portions of the fistula with resistive waveforms. Primary outflow of the fistula noted through the brachial vein. Results for orders placed during the hospital encounter of 08/10/23 Duplex Hemodialysis Access CAR Interpretation Summary S/P left radio cephalic AVF. Inflow artery and proximal anastomosis velocities appear within normal/expected limits. Low flow velocities noted within the proximal and mid portions of the fistula with resistive waveforms. Primary outflow of the fistula noted through the brachial vein. Plan for Follow-up of Pending Labs/Results: negative to date Pending Labs Order Current Status Blood Culture - Blood, Arm, Right Preliminary result Blood Culture - Blood, Hand, Right Preliminary result Discharge Details Discharge Medications New Medications Instructions Start Date acetaminophen 325 MG tablet Commonly known as: TYLENOL 650 mg, Oral, Every 4 Hours PRN cefuroxime 250 MG tablet Commonly known as: CEFTIN 250 mg, Oral, Every 12 Hours Scheduled doxycycline 100 MG capsule Commonly known as: MONODOX 100 mg, Oral, Every 12 Hours Scheduled Changes to Medications Instructions Start Date cycloSPORINE modified 100 MG capsule Commonly known as: NEORAL What changed: medication strength how much to take when to take this 100 mg, Oral, 2 Times Daily hydrALAZINE 100 MG tablet Commonly known as: APRESOLINE What changed: medication strength how much to take 100 mg, Oral, 3 Times Daily Continue These Medications Instructions Start Date ALPRAZolam 1 MG tablet Commonly known as: XANAX 1 mg, Oral, Daily, Take before dialysis aspirin 81 MG chewable tablet 81 mg, Oral, Daily carBAMazepine 200 MG tablet Commonly known as: TEGretol 200 mg, Oral, Nightly, For feet cramps cyclobenzaprine 10 MG tablet Commonly known as: FLEXERIL 10 mg, Oral, 3 Times Daily PRN doxazosin 8 MG tablet Commonly known as: CARDURA 8 mg, Oral, Nightly PRN famotidine 20 MG tablet Commonly known as: PEPCID 20 mg, Oral, 2 Times Daily PRN gabapentin 800 MG tablet Commonly known as: NEURONTIN 400 mg, Oral, Nightly hydrOXYzine pamoate 25 MG capsule Commonly known as: VISTARIL 25 mg, Oral, Daily, 1 hr prior to dialysis insulin NPH 100 UNIT/ML injection Commonly known as: humuLIN N,novoLIN N Subcutaneous, 4 Times Daily - RT, Sliding scale 4 times day lisinopril 40 MG tablet Commonly known as: PRINIVIL,ZESTRIL 40 mg, Oral, Daily methocarbamol 500 MG tablet Commonly known as: ROBAXIN 500 mg, Oral, Once mycophenolate 250 MG capsule Commonly known as: CELLCEPT 250 mg, Oral, 2 Times Daily NIFEdipine CC 90 MG 24 hr tablet Commonly known as: ADALAT CC 90 mg, Oral, 2 Times Daily ondansetron 4 MG tablet Commonly known as: ZOFRAN 4 mg, Oral, Every 8 Hours PRN vitamin D 1.25 MG (85973 UT) capsule capsule Commonly known as: ERGOCALCIFEROL 50,000 Units, Oral, 2 Times Weekly, Takes on Monday and Stop These Medications entecavir 0.5 MG tablet Commonly known as: BARACLUDE No Known Allergies Discharge Disposition: Home or Self Care Diet: Hospital: Diet Order Procedures Diet: Regular/House Diet, Diabetic Diets, Renal Diets; Consistent Carbohydrate; Low Sodium (2-3g), Low Potassium, Low Phosphorus; Texture: Regular Texture (IDDSI 7); Fluid Consistency: Thin (IDDSI 0) Activity: as tolerated Restrictions or Other Recommendations: none CODE STATUS: Code Status and Medical Interventions: Ordered at: 08/11/23 0827 Level Of Support Discussed With: Patient Code Status (Patient has no pulse and is not breathing): CPR (Attempt to Resuscitate) Medical Interventions (Patient has pulse or is breathing): Full Support Additional Instructions for the Follow-ups that You Need to Schedule Discharge Follow-up with Specified Provider: vascular surgery in 1 month As directed To: vascular surgery in 1 month Shiloh Maradiaga DO 08/14/23 Time Spent on Discharge: I spent 35 minutes on this discharge activity which included: [id number] with the patient, reviewing the data in the system, coordination of the care with the nursing staff as well as consultants, documentation, and entering orders. * Carla Lazo, PT - 08/13/2023 9:19 AM EST Images from the original note were not included. Patient Name: Aiden Addison Stauffer JrUbaldo : 1975 Today's Date: 08/13/2023 Admit Date: 08/10/2023 Visit Dx: ICD-10-CM ICD-9-CM 1. Cellulitis of left forearm L03.114 682.3 2. Complication of AV dialysis fistula, initial encounter T82.9XXA 996.73 3. End-stage renal disease on hemodialysis N18.6 585.6 Z99.2 V45.11 4. Left forearm pain M79.632 729.5 5. Hyperkalemia E87.5 276.7 Patient Active Problem List Diagnosis Sepsis SAL (nonalcoholic steatohepatitis) History of liver transplant Immunosuppression Type 2 diabetes mellitus Altered mental state ESRD (end stage renal disease) Hyponatremia Discitis Epidural abscess Leukocytosis AVF (arteriovenous fistula) Malfunction of arteriovenous dialysis fistula Past Medical History: Diagnosis Date Diabetes mellitus Dialysis patient Hemorrhage THROAT VARICIES Kidney failure Liver transplanted Past Surgical History: Procedure Laterality Date ARTERIOVENOUS FISTULA Left 2019 CARDIAC CATHETERIZATION times 2022 CHOLECYSTECTOMY ENDOSCOPY N/A 05/04/2020 Procedure: ESOPHAGOGASTRODUODENOSCOPY; Surgeon: Dewey Betancourt MD; Location: [facility] ENDOSCOPY; Service: Gastroenterology; Laterality: N/A; LUMBAR LAMINECTOMY DISCECTOMY DECOMPRESSION N/A 04/29/2020 Procedure: LUMBAR LAMINECTOMY DISCECTOMY DECOMPRESSION POSTERIOR L4-5; Surgeon: Yinka Garnica MD; Location: [facility] OR; Service: Neurosurgery; Laterality: N/A; General Information No documentation. Mobility Row Name 08/13/23918 Bed Mobility Bed Mobility supine-sit -LS Supine-Sit Omega (Bed Mobility) modified independence -LS Assistive Device (Bed Mobility) bed rails -LS Comment, (Bed Mobility) pt said he has a bedrail at home. per PT's clinical judgement, pt would also be modified indep sit to supine. attempted supine to sit on flat bed surface without bedrail; pt unable to transition indep without using bedrail. -LS Row Name 08/13/23918 Sit-Stand Transfer Sit-Stand Omega (Transfers) independent -LS Row Name 08/13/2319 Gait/Stairs (Locomotion) Omega Level (Gait) independent -LS Patient was able to Ambulate yes -LS Distance in Feet (Gait) 200 -LS Deviations/Abnormal Patterns (Gait) gait speed decreased;bilateral deviations;stride length decreased -LS Right Sided Gait Deviations foot drop/toe drag decreased swing phase dorsiflexion R ankle. pt has an AFO for the RLE but does not wear it. -LS Comment, (Gait/Stairs) one minor LOB; pt able to self-correct without assist from therapist. pt said he walks better wearing shoes (today, he was wearing gripper socks). - User Dyer (r) = Recorded By, (t) = Taken By, (c) = Cosigned By Initials Name Provider Type Carla Hamilton, DEMETRIUS Physical Therapist Obj/Interventions Row Name 08/13/23918 Range of Motion Comprehensive General Range of Motion bilateral lower extremity ROM WFL - Row Name 08/13/23918 Strength Comprehensive (MMT) Comment, General Manual Muscle Testing (MMT) Assessment B hip flexors 4. B knee extensors 4+. R ankle dorsiflexors 4-. L ankle dorsiflexors 4/5. - Row Name 08/13/23918 Balance Position/Device Used, Standing Balance unsupported - Balance Interventions standing;sit to stand;weight shifting activity - User Dyer (r) = Recorded By, (t) = Taken By, (c) = Cosigned By Initials Name Provider Type Carla Hamilton, PT Physical Therapist Goals/Plan No documentation. Clinical Impression Row Name 08/13/23918 Pain Pretreatment Pain Rating 4/10 -LS Posttreatment Pain Rating 4/10 -LS Pain Location - Side/Orientation Left -LS Pain Location upper -LS Pain Location - extremity -LS Pre/Posttreatment Pain Comment feet and LUE pain -LS Pain Intervention(s) Repositioned;Nursing Notified - Row Name 08/13/23918 Plan of Care Review Plan of Care Reviewed With patient -LS Outcome Evaluation Pt is indep with mobility. Skilled PT services are not indicated at this time. This was discussed and agreed upon with pt. Discharge PT. - Row Name 08/13/23918 Therapy Assessment/Plan (PT) Criteria for Skilled Interventions Met (PT) no;no problems identified which require skilled intervention -LS Therapy Frequency (PT) evaluation only - Row Name 08/13/23918 Positioning and Restraints Pre-Treatment Position in bed -LS Post Treatment Position bed -LS In Bed notified nsg;sitting EOB;call light within reach;encouraged to call for assist -LS User Dyer (r) = Recorded By, (t) = Taken By, (c) = Cosigned By Initials Name Provider Type Carla Hamilton, DEMETRIUS Physical Therapist Outcome Measures Row Name 08/13/23918 How much help from another person do you currently need... Turning from your back to your side while in flat bed without using bedrails? 4 -LS Moving from lying on back to sitting on the side of a flat bed without bedrails? 3 needed bedrail -LS Moving to and from a bed to a chair (including a wheelchair)? 4 -LS Standing up from a chair using your arms (e.g., wheelchair, bedside chair)? 4 -LS Climbing 3-5 steps with a railing? 4 -LS To walk in hospital room? 4 -LS AM-PAC 6 Clicks Score (PT) 23 -LS Highest Level of Mobility Goal 7 --> Walk 25 feet or more - Row Name 08/13/23918 Functional Assessment Outcome Measure Options AM-PAC 6 Clicks Basic Mobility (PT) -LS User Dyer (r) = Recorded By, (t) = Taken By, (c) = Cosigned By Initials Name Provider Type Carla Hamilton, DEMETRIUS Physical Therapist Physical Therapy Education Title: PT OT HEEL [employer] FIRST Therapies (Done) Topic: Physical Therapy (Done) Point: Mobility training (Done) Learning Progress Summary Patient Acceptance, E, VU by at 08/12/20232345 Point: Home exercise program (Done) Learning Progress Summary Patient Acceptance, E, VU by at 08/13/2023918 Comment: Benefits of activity Acceptance, E, VU by MM at 08/12/20232345 Point: Body mechanics (Done) Learning Progress Summary Patient Acceptance, E, VU by at 08/12/20232345 Point: Precautions (Done) Learning Progress Summary Patient Acceptance, E, VU by at 08/12/20232345 User Dyer Initials Effective Dates Name Provider Type Discipline 02/21/23 - Carla Lazo, PT Physical Therapist PT MM 11/16/22 - Marina Wolf RN Registered Nurse Nurse PT Recommendation and Plan Plan of Care Reviewed With: patient Outcome Evaluation: Pt is indep with mobility. Skilled PT services are not indicated at this time. This was discussed and agreed upon with pt. Discharge PT. Time Calculation: PT Evaluation Complexity History, PT Evaluation Complexity: 3 or more personal factors and/or comorbidities Examination of Body Systems (PT Eval Complexity): total of 4 or more elements Clinical Presentation (PT Evaluation Complexity): stable Clinical Decision Making (PT Evaluation Complexity): low complexity Overall Complexity (PT Evaluation Complexity): low complexity PT Charges Row Name 08/13/2391808/13/23917 Time Calculation Start Time 918 -LS -- -LS PT Received On 08/13/23 -LS -- Untimed Charges PT Eval/Re-eval Minutes 40 -LS -- Total Minutes Untimed Charges Total Minutes 40 -LS -- Total Minutes 40 -LS -- User Dyer (r) = Recorded By, (t) = Taken By, (c) = Cosigned By Initials Name Provider Type Carla Hamilton, PT Physical Therapist Therapy Charges for Today Code Description Service Date Service Provider Modifiers Qty [id number] PT EVAL LOW COMPLEXITY 3 08/13/2023 Carla Lazo, PT GP 1 PT G-Codes Outcome Measure Options: AM-PAC 6 Clicks Basic Mobility (PT) AM-PAC 6 Clicks Score (PT): 23 PT Discharge Summary Anticipated Discharge Disposition (PT): home Carla Lazo PT 08/13/2023 documented in this encounter Discharge Instructions * Attachments The following attachments cannot be sent through Care Everywhere. * Hyperkalemia (Algerian) * Cefuroxime Tablets (Algerian) * Doxycycline Capsules or Tablets (Algerian) documented in this encounter Medications at Time of Discharge ALPRAZolam (XANAX) 0.5 MG tablet Take 1 tablet by mouth Daily As Needed for Anxiety. 05/05/2023 aspirin 81 MG chewable tablet Chew 1 tablet Daily. carBAMazepine (TEGretol) 200 MG tablet Take 1 tablet by mouth Every Night. For feet cramps cholecalciferol (VITAMIN D3) 1.25 MG (73431 UT) capsule Take 1 capsule by mouth 3 (Three) Times a Week. 04/24/2023 cycloSPORINE modified (NEORAL) 25 MG capsule Take 4 capsules by mouth 2 (Two) Times a Day. 04/28/2023 doxazosin (CARDURA) 8 MG tablet Take 1 tablet by mouth At Night As Needed. folic acid (FOLVITE) 1 MG tablet Take 1 tablet by mouth Daily. 04/24/2023 gabapentin (NEURONTIN) 800 MG tablet Take 0.5 tablets by mouth Every Night. hydrALAZINE (APRESOLINE) 100 MG tablet Take 1 tablet by mouth 3 (Three) Times a Day. 90 tablet 08/14/2023 methocarbamol (ROBAXIN) 500 MG tablet Take 1 tablet by mouth 1 (One) Time. montelukast (SINGULAIR) 10 MG tablet Take 1 tablet by mouth Daily. 04/14/2023 NIFEdipine CC (ADALAT CC) 90 MG 24 hr tablet Take 1 tablet by mouth 2 (Two) Times a Day. Xphozah 20 MG tablet Take 30 mg by mouth 2 (Two) Times a Day. 07/27/2023 cefuroxime (CEFTIN) 250 MG tabletIndication s:Skin and Soft Tissue Infection Take 1 tablet by mouth Every 12 (Twelve) Hours for 8 doses. Indications: Infection of the Skin and/or Soft Tissue 8 tablet 08/14/2023 4 doxycycline (MONODOX) 100 MG capsuleIndicatio ns:Skin and Soft Tissue Infection Take 1 capsule by mouth Every 12 (Twelve) Hours for 8 doses. Indications: Infection of the Skin and/or Soft Tissue 8 capsule 08/14/2023 4 acetaminophen (TYLENOL) 325 MG tablet Take 2 tablets by mouth Every 4 (Four) Hours As Needed for Mild Pain. 08/14/2023 4 ALPRAZolam (XANAX) 1 MG tablet Take 1 tablet by mouth Daily. Take before dialysis 4 cyclobenzaprine (FLEXERIL) 10 MG tablet Take 1 tablet by mouth 3 (Three) Times a Day As Needed for Muscle Spasms. 4 cycloSPORINE modified (NEORAL) 100 MG capsule Take 1 capsule by mouth 2 (Two) Times a Day. 60 capsule 08/14/2023 4 famotidine (PEPCID) 20 MG tablet Take 1 tablet by mouth 2 (Two) Times a Day As Needed for Heartburn. 4 hydrOXYzine pamoate (VISTARIL) 25 MG capsule Take 1 capsule by mouth Daily. 1 hr prior to dialysis 4 insulin NPH (humuLIN N,novoLIN N) 100 UNIT/ML injection Inject under the skin into the appropriate area as directed 4 (Four) Times a Day. Sliding scale 4 times day 4 lisinopril (PRINIVIL,ZESTRI L) 40 MG tablet Take 1 tablet by mouth Daily. 30 tablet 05/13/2020 4 mycophenolate (CELLCEPT) 250 MG capsule Take 1 capsule by mouth 2 (Two) Times a Day. 4 ondansetron (ZOFRAN) 4 MG tablet Take 1 tablet by mouth Every 8 (Eight) Hours As Needed for Nausea or Vomiting. 4 vitamin D (ERGOCALCIFEROL) 1.25 MG (12180 UT) capsule capsule Take 1 capsule by mouth 2 (Two) Times a Week. Takes on Monday and 4 documented as of this encounter Progress Notes * Glenn Kay MD - 08/13/2023 4:52 PM EST LOS: 2 days Patient Care Team: Edgar Fournier MD as PCP - General (Family Medicine) Chief Complaint: ESRD on home hemodialysis HD yesterday tolerated well. K ~ 5.0 this morning Subjective: Symptoms: Stable. No shortness of breath, chest pain or chest pressure. Diet: Adequate intake. Pain: He reports no pain. History taken from: patient Objective Vital Sign Min/Max for last 24 hours Temp Min: 97.7 ??F (36.5 ??C) Max: 98.7 ??F (37.1 ??C) BP Min: 136/64 Max: 170/89 Pulse Min: 84 Max: 103 Resp Min: 17 Max: 19 SpO2 Min: 90 % Max: 99 % Flow (L/min) Min: 2 Max: 3 No data recorded Flowsheet Rows Flowsheet Row First Filed Value Admission Height 172.7 cm (68 ) Documented at 08/10/20232023 Admission Weight 136 kg (300 lb) Documented at 08/10/20232023 I/O this shift: In: 1199 [P.O.:1200] Out: - I/O last 3 completed shifts: In: 2039 [P.O.:2039] Out: 3389 Objective: Vital signs: (most recent): Blood pressure 170/89, pulse 103, temperature 98.4 ??F (36.9 ??C), temperature source Oral, resp. rate 17, height 172.7 cm (68 ), weight 136 kg (300 lb), SpO2 94%. Results Review: I reviewed the patient's new clinical results. WBC WBC Date Value Ref Range Status 08/13/2023 5.16 3.40 - 10.80 10*3/mm3 Final 08/12/2023 6.39 3.40 - 10.80 10*3/mm3 Final 08/10/2023 9.22 3.40 - 10.80 10*3/mm3 Final HGB Hemoglobin Date Value Ref Range Status 08/13/2023 11.0 (L) 13.0 - 17.7 g/dL Final 08/12/2023 11.5 (L) 13.0 - 17.7 g/dL Final 08/10/2023 13.9 13.0 - 17.7 g/dL Final HCT Hematocrit Date Value Ref Range Status 08/13/2023 34.8 (L) 37.5 - 51.0 % Final 08/12/2023 36.3 (L) 37.5 - 51.0 % Final 08/10/2023 43.3 37.5 - 51.0 % Final Platlets No results found for: LABPLAT MCV MCV Date Value Ref Range Status 08/13/2023 102.4 (H) 79.0 - 97.0 fL Final 08/12/2023 101.7 (H) 79.0 - 97.0 fL Final 08/10/2023 103.1 (H) 79.0 - 97.0 fL Final Sodium Sodium Date Value Ref Range Status 08/13/2023 134 (L) 136 - 145 mmol/L Final 08/12/2023 137 136 - 145 mmol/L Final 08/11/2023 137 136 - 145 mmol/L Final 08/11/2023 136 136 - 145 mmol/L Final Potassium Potassium Date Value Ref Range Status 08/13/2023 5.0 3.5 - 5.2 mmol/L Final 08/12/2023 6.4 (C) 3.5 - 5.2 mmol/L Final 08/11/2023 5.7 (H) 3.5 - 5.2 mmol/L Final Comment: Slight hemolysis detected by analyzer. Result may be falsely elevated. 08/11/2023 6.8 (C) 3.5 - 5.2 mmol/L Final Comment: Specimen hemolyzed. Result may be falsely elevated. Hemolyzed specimen. Testing performed per physician request. Chloride Chloride Date Value Ref Range Status 08/13/2023 98 98 - 107 mmol/L Final 08/12/2023 101 98 - 107 mmol/L Final 08/11/2023 102 98 - 107 mmol/L Final 08/11/2023 101 98 - 107 mmol/L Final CO2 CO2 Date Value Ref Range Status 08/13/2023 22.0 22.0 - 29.0 mmol/L Final 08/12/2023 19.0 (L) 22.0 - 29.0 mmol/L Final 08/11/2023 18.0 (L) 22.0 - 29.0 mmol/L Final 08/11/2023 19.0 (L) 22.0 - 29.0 mmol/L Final BUN BUN Date Value Ref Range Status 08/13/2023 41 (H) 6 - 20 mg/dL Final 08/12/2023 61 (H) 6 - 20 mg/dL Final 08/11/2023 83 (H) 6 - 20 mg/dL Final 08/11/2023 80 (H) 6 - 20 mg/dL Final Creatinine Creatinine Date Value Ref Range Status 08/13/2023 8.59 (H) 0.76 - 1.27 mg/dL Final 08/12/2023 10.39 (H) 0.76 - 1.27 mg/dL Final 08/11/2023 12.28 (H) 0.76 - 1.27 mg/dL Final 08/11/2023 12.29 (H) 0.76 - 1.27 mg/dL Final Calcium Calcium Date Value Ref Range Status 08/13/2023 9.1 8.6 - 10.5 mg/dL Final 08/12/2023 8.8 8.6 - 10.5 mg/dL Final 08/11/2023 8.7 8.6 - 10.5 mg/dL Final 08/11/2023 8.6 8.6 - 10.5 mg/dL Final PO4 No results found for: CAPO4 Albumin Albumin Date Value Ref Range Status 08/11/2023 4.1 3.5 - 5.2 g/dL Final Magnesium No results found for: MG Uric Acid No results found for: URICACID Medication Review: Yes Assessment & Plan SAL (nonalcoholic steatohepatitis) History of liver transplant Immunosuppression Type 2 diabetes mellitus ESRD (end stage renal disease) AVF (arteriovenous fistula) Malfunction of arteriovenous dialysis fistula Assessment & Plan ESRD: On home hemodialysis. Follows with [facility] Malfunctioning AV access: IR attempted fistulogram but unable to fix the stenosis. Need vascular surgery referral as outpatient Acid base and Elytes: Hyperkalemia. Management with HD. 2k bath. Does have issues with chronic hyperkalemia on K binder at home ( reportedly) Volume status: Stable. Access site infection: Small erythema and swelling noted at cannulation site. ON abx. He will likely need 7-10 days of oral abx w MRSA coverage if discharge today. 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 Recs Discussed with patient's outpatient primary HD RN. Patient needs re- education/training for HHD using TDC. Patient believes he has received necessary training in the past. Would recommend holding off on HHD on discharge until follows up with his clinic on Monday. Continue outpatient daily lokelma on discharge I discussed the patients findings and my recommendations with patient Glenn Kay MD 08/13/23 16:52 EST * Maile Jasso APRN - 08/13/2023 9:50 AM EST Images from the original note were not included. [facility] Medicine Services PROGRESS NOTE Patient Name: Aiden Stauffer Jr. : 1975 Date of Admission: 08/10/2023 Primary Care Physician: Edgar Fournier MD Subjective Subjective CC: Left arm pain HPI: Pt very anxious Increased swelling and redness Objective Objective Vital Signs: Temp: [97.7 ??F (36.5 ??C)-98.7 ??F (37.1 ??C)] 98.4 ??F (36.9 ??C) Heart Rate: [84-99] 84 Resp: [17-19] 17 BP: (123-170)/(64-90) 170/89 Flow (L/min): [2-3] 3 Physical Exam: Constitutional: No acute distress, awake, alert HENT: NCAT, mucous membranes moist Respiratory: Clear to auscultation bilaterally, respiratory effort normal Cardiovascular: RRR, no murmurs, rubs, or gallops Gastrointestinal: Positive bowel sounds, soft, nontender, nondistended, obese Musculoskeletal: No bilateral ankle edema Psychiatric: Appropriate affect, cooperative Neurologic: Oriented x 3, HILTON, speech clear Skin: No rashes noted. Left arm AV fistula site swollen, thrill noted, minimal serosanguinous drainage note, increased redness from overnight Results Reviewed: LAB RESULTS: Lab 08/13/23 0550 08/12/23 0559 08/11/23 1140 08/11/23 0451 08/10/23 2130 WBC 5.16 6.39 -- -- 9.22 HEMOGLOBIN 11.0* 11.5* -- -- 13.9 HEMATOCRIT 34.8* 36.3* -- -- 43.3 PLATELETS 187 197 -- -- 278 NEUTROS ABS 3.02 -- -- -- 6.08 IMMATURE GRANS (ABS) 0.11* -- -- -- 0.17* LYMPHS ABS 1.20 -- -- -- 1.97 MONOS ABS 0.52 -- -- -- 0.55 EOS ABS 0.29 -- -- -- 0.42* MCV 102.4* 101.7* -- -- 103.1* PROCALCITONIN -- -- -- 0.33* -- LACTATE -- -- -- -- 1.0 PROTIME -- -- 13.7 -- -- Lab 08/13/23 0550 08/12/23 0559 08/11/23 0451 08/11/23 0048 SODIUM 134* 137 137 136 POTASSIUM 5.0 6.4* 5.7* 6.8* CHLORIDE 98 101 102 101 CO2 22.0 19.0* 18.0* 19.0* ANION GAP 14.0 17.0* 17.0* 16.0* BUN 41* 61* 83* 80* CREATININE 8.59* 10.39* 12.28* 12.29* EGFR 7.0* 5.6* 4.5* 4.5* GLUCOSE 148* 134* 104* 130* CALCIUM 9.1 8.8 8.7 8.6 PHOSPHORUS 7.5* -- 4.7* -- HEMOGLOBIN A1C -- 6.50* -- -- TSH -- 2.790 -- -- Lab 08/11/23 0048 TOTAL PROTEIN 7.0 ALBUMIN 4.1 GLOBULIN 2.9 ALT (SGPT) <5 AST (SGOT) <5 BILIRUBIN 0.3 ALK PHOS 197* Lab 08/11/23 1140 PROTIME 13.7 INR 1.03 Lab 08/12/23 0559 CHOLESTEROL 246* LDL CHOL 115* HDL CHOL 25* TRIGLYCERIDES 594* Brief Urine Lab Results None Microbiology Results Abnormal Procedure Component Value - Date/Time Blood Culture - Blood, Arm, Right [[id number]] (Normal) Collected: 08/10/232129 Lab Status: Preliminary result Specimen: Blood from Arm, Right Updated: 08/13/23 001 Blood Culture No growth at 2 days Blood Culture - Blood, Hand, Right [[id number]] (Normal) Collected: 08/10/232149 Lab Status: Preliminary result Specimen: Blood from Hand, Right Updated: 08/13/23 0015 Blood Culture No growth at 2 days MRSA Screen, PCR (Inpatient) - Swab, Nares [[id number]] (Normal) Collected: 08/10/23 2334 Lab Status: Final result Specimen: Swab from Nares Updated: 08/11/23 0741 MRSA PCR Negative Narrative: The negative predictive value of this diagnostic test is high and should only be used to consider de-escalating anti-MRSA therapy. A positive result may indicate colonization with MRSA and must be correlated clinically. MRSA Negative No radiology results from the last 24 hrs Current medications: Scheduled Meds:albumin human, , , ALPRAZolam, 1 mg, Oral, Daily aspirin, 81 mg, Oral, Daily calcium gluconate, 1,000 mg, Intravenous, Once carBAMazepine, 200 mg, Oral, Once carBAMazepine, 200 mg, Oral, Nightly cefuroxime, 250 mg, Oral, Q12H [START ON 08/15/2023] cholecalciferol, 5,000 Units, Oral, Once per day on Monday cycloSPORINE modified, 100 mg, Oral, BID doxycycline, 100 mg, Oral, Q12H gabapentin, 400 mg, Oral, Nightly heparin (porcine), 5,000 Units, Subcutaneous, Q8H hydrALAZINE, 100 mg, Oral, TID insulin detemir, 10 Units, Subcutaneous, Nightly insulin lispro, 2-7 Units, Subcutaneous, 4x Daily AC & at Bedtime lisinopril, 40 mg, Oral, Daily methocarbamol, 500 mg, Oral, Once mycophenolate, 250 mg, Oral, Q12H NIFEdipine XL, 90 mg, Oral, Q24H senna-docusate sodium, 2 tablet, Oral, BID sodium bicarbonate, 50 mEq, Intravenous, Once sodium chloride, 10 mL, Intravenous, Q12H sodium zirconium cyclosilicate, 10 g, Oral, Once terazosin, 5 mg, Oral, Nightly Continuous Infusions: PRN Meds:. acetaminophen OR acetaminophen OR acetaminophen albumin human senna-docusate sodium AND polyethylene glycol AND bisacodyl AND bisacodyl cyclobenzaprine dextrose dextrose diphenhydrAMINE famotidine glucagon (human recombinant) heparin (porcine) HYDROcodone-acetaminophen HYDROmorphone ondansetron ODT OR ondansetron prochlorperazine OR prochlorperazine OR prochlorperazine sodium chloride sodium chloride sodium chloride Assessment & Plan Assessment & Plan Active Hospital Problems Diagnosis POA AVF (arteriovenous fistula) [I77.0] Yes Malfunction of arteriovenous dialysis fistula [T82.590A] Yes History of liver transplant [Z94.4] Not Applicable Immunosuppression [D84.9] Yes Type 2 diabetes mellitus [E11.9] Yes ESRD (end stage renal disease) [N18.6] Yes SAL (nonalcoholic steatohepatitis) [K75.81] Yes Resolved Hospital Problems Diagnosis Date Resolved POA Hyperkalemia [E87.5] 08/13/2023 Yes Brief Hospital Course to date: Aiden Stauffer Jr. is a 48 y.o. male with PMH of T2DM, SAL cirrhosis s/p liver transplant in 2018 on chronic immunosuppression, ESRD on home HD via LUE AVF, h/o discitis/epidural abscess s/p laminectomy and I&D of abscess in 2019 who presented with complaints of LUE pain that radiated across chest anteriorly and described as pressure and HD access issues with associated swelling, redness, warmth and small area of what appeared to be pus at access site (although not draining) Hyperkalemia Hyperphosphatemia ESRD on HD Malfunctioning AVF with concern for infected graft -- initial K+ 6.8, improved to 5.7 after treatment in the ED. Some hemolysis noted on repeat labs, so likely slightly higher than true serum value -- ED notified Dr. Edwards with [facility], they are on board and plan for HD. He is aware that alternative routes of access may be warranted. -- IR performed fistulogram with notec hypertrophy of the forearm cephalic vein, occlusion of the cephalic vein just above the elbow and collateral flow via antecubital vein and the forearm milk condenser vein into forearm brachial vein and via the tortuous medial upper arm collateral veins including the brachial and basilic veins. There is 80-90% stenosis of the multiple sites of the outflow veins. Could not access the stenotic segments as mentioned above. Will follow up with vascular surgery as outpatient for this issue. Right tunneled cath was placed 08/11/23 -- antibiotics changed to oral to monitor response in anticipation of dc tomorrow -- blood cultures NG x48h -- procal slightly elevated -- no leukocytosis and afebrile, however, he is on immunosuppression -- consider ID consult- saw Dr. Cayetano Rodriguez in 2019 when he had epidural abscess/discitis -- labs in am -- uses Xphozah 20mg BID at home (phos binder), not on formulary here H/o SAL cirrhosis s/p liver transplant -- continue antirejection meds T2DM -- hold home meds -- low dose basal insulin with low dose SSI -- HbA1C 6.5 Latest Reference Range & Units 08/13/23 05:50 08/13/23 06:51 08/13/23 11:14 08/13/23 15:51 Glucose 70 - 130 mg/dL 148 (H) 145 (H) 171 (H) 173 (H) H/o discitis/epidural abscess (2019) -- s/p laminectomy and I&D of abscess by Dr. Garnica. Followed by ID/Dr. Rodriguez for his complete course of ABX Expected Discharge Location and Transportation: home on oral antibiotics Expected Discharge Expected Discharge Date: 08/14/2023; Expected Discharge Time: DVT prophylaxis: Medical DVT prophylaxis orders are present. AM-PAC 6 Clicks Score (PT): 23 (08/13/23 0931) CODE STATUS: Code Status and Medical Interventions: Ordered at: 08/11/23 0860 Level Of Support Discussed With: Patient Code Status (Patient has no pulse and is not breathing): CPR (Attempt to Resuscitate) Medical Interventions (Patient has pulse or is breathing): Full Support Maile Jasso APRN 08/13/23 * Maile Jasso APRN - 08/12/2023 1:40 PM EST Images from the original note were not included. [facility] Medicine Services PROGRESS NOTE Patient Name: Aiden Stauffer Jr. : 1975 Date of Admission: 08/10/2023 Primary Care Physician: Edgar Fournier MD Subjective Subjective CC: Left arm pain HPI: No new issues overnight. States he was in significant pain with left arm, but improved now Denies chest pain Objective Objective Vital Signs: Temp: [97.9 ??F (36.6 ??C)-98.6 ??F (37 ??C)] 98.3 ??F (36.8 ??C) Heart Rate: [72-112] 107 Resp: [11-20] 18 BP: (71-199)/(44-137) 123/71 Flow (L/min): [2-3] 3 Physical Exam: Constitutional: No acute distress, awake, alert, at bedside HENT: NCAT, mucous membranes moist Respiratory: Clear to auscultation bilaterally, respiratory effort normal Cardiovascular: RRR, no murmurs, rubs, or gallops Gastrointestinal: Positive bowel sounds, soft, nontender, nondistended, obese Musculoskeletal: No bilateral ankle edema Psychiatric: Appropriate affect, cooperative Neurologic: Oriented x 3, HILTON, speech clear Skin: No rashes noted. Left arm AV fistula site swollen, thrill noted, no drainage noted, minimal redness which pt reports is improved Results Reviewed: LAB RESULTS: Lab 08/12/23 0559 08/11/23 1140 08/11/23 0451 08/10/23 2130 WBC 6.39 -- -- 9.22 HEMOGLOBIN 11.5* -- -- 13.9 HEMATOCRIT 36.3* -- -- 43.3 PLATELETS 197 -- -- 278 NEUTROS ABS -- -- -- 6.08 IMMATURE GRANS (ABS) -- -- -- 0.17* LYMPHS ABS -- -- -- 1.97 MONOS ABS -- -- -- 0.55 EOS ABS -- -- -- 0.42* MCV 101.7* -- -- 103.1* PROCALCITONIN -- -- 0.33* -- LACTATE -- -- -- 1.0 PROTIME -- 13.7 -- -- Lab 08/12/23 0559 08/11/23 0451 08/11/23 0048 SODIUM 137 137 136 POTASSIUM 6.4* 5.7* 6.8* CHLORIDE 101 102 101 CO2 19.0* 18.0* 19.0* ANION GAP 17.0* 17.0* 16.0* BUN 61* 83* 80* CREATININE 10.39* 12.28* 12.29* EGFR 5.6* 4.5* 4.5* GLUCOSE 134* 104* 130* CALCIUM 8.8 8.7 8.6 PHOSPHORUS -- 4.7* -- HEMOGLOBIN A1C 6.50* -- -- TSH 2.790 -- -- Lab 08/11/23 0048 TOTAL PROTEIN 7.0 ALBUMIN 4.1 GLOBULIN 2.9 ALT (SGPT) <5 AST (SGOT) <5 BILIRUBIN 0.3 ALK PHOS 197* Lab 08/11/23 1140 PROTIME 13.7 INR 1.03 Lab 08/12/23 0559 CHOLESTEROL 246* LDL CHOL 115* HDL CHOL 25* TRIGLYCERIDES 594* Brief Urine Lab Results None Microbiology Results Abnormal Procedure Component Value - Date/Time Blood Culture - Blood, Arm, Right [[id number]] (Normal) Collected: 08/10/232129 Lab Status: Preliminary result Specimen: Blood from Arm, Right Updated: 08/12/23 001 Blood Culture No growth at 24 hours Blood Culture - Blood, Hand, Right [[id number]] (Normal) Collected: 08/10/232149 Lab Status: Preliminary result Specimen: Blood from Hand, Right Updated: 08/12/23 001 Blood Culture No growth at 24 hours MRSA Screen, PCR (Inpatient) - Swab, Nares [[id number]] (Normal) Collected: 08/10/232333 Lab Status: Final result Specimen: Swab from Nares Updated: 08/11/23 07 MRSA PCR Negative Narrative: The negative predictive value of this diagnostic test is high and should only be used to consider de-escalating anti-MRSA therapy. A positive result may indicate colonization with MRSA and must be correlated clinically. MRSA Negative IR Angioplasty AV Fistula / Graft Arterial Result Date: 08/11/2023 IR FISTULOGRAM LEFT FOREARM FISTULA. History: Left forearm AV fistula. High pressure in fistula. A focal area of infection at one of the access sites. Dialysis cannot be provided. Shaper And Presser: Victor Manuel Castro M.D. Modality: Sonography and fluoroscopy. DOSE REDUCTION: The examination was performed according to departmental dose-optimization program. Fluoro time: 19.8 minutes Radiation dose: 16.3 mGy air Kerma. Sedation: The sedation was administered and the patient's vital signs monitored throughout the procedure and recorded in the patient's medical record by the nurse under my direct supervision. Please see the report on tunneled dialysis catheter placement for the sedation medicine and dosis along with the sedation time. The TDC was placed immediately after this procedure. Anesthesia: Lidocaine 1% local infiltration. Medicines: None Contrast medium: Isovue 300, 25 cc. Estimated blood loss: < 5 cc. Technique: [...] draped in the maximal applicable sterile fashion. The patient was laid supine on the procedure table. The surgical site was prepped with chlorhexidine gluconate and draped in the standard sterile fashion. After local anesthesia and dermatotomy, the fistula was accessed in antegrade direction in the distal forearm region. Through the needle, a 018 guidewire was placed in the fistula followed by placement of a conversion sheath. The sheath was then used for performing a fistulogram and an outflow venogram. Later in the case, completion central venogram was also per formed There is presence of a hypertrophic left forearm radiocephalic fistula. There is a blind ending cephalic vein just above the elbow joint. There is flow via the antecubital vein into the milk condenser vein and then into the basilic and brachial veins. There is severe apparently 80-90% stenosis at the point where the milk condenser vein meets the brachial vein and also in the brachial and basilic veins approximately 3 cm above the elbow joint line. The fistula is tortuous and because of the collateralization, it is almost a Z-shaped configuration with stenosis at the sharp bend below the elbow.There is no other stenosis in the fistula outflow. Over the wire, a 7 Albanian sheath was placed. Diligent effort was made to cross the milk condenser vein into the brachial vein using multiple types of angled glide wires, catheters, coaxial 5 Albanian sheath through the 7 Albanian sheath. These were unsuccessful. I also punctured the blind-ending part of the cephalic vein above the elbow joint directly under ultrasound guidance after local anesthesia with a micropuncture device. Pertinent ultrasound images were stored in the the PACS. I was still not able to cross the point of sharp angulation/stenosis of the milk condenser vein joining the brachial vein. This is a large high flow fistula. Reflux run was not performed. The access was withdrawn and hemostasis secured by application of a pursestring suture and/or manual compression. An aseptic dressing was applied. The patient was then transferred to the recovery area and discharged from the department in stable condition. Complications: None immediate. Findings: As above. Impression: Impression: Left forearm radiocephalic fistula with hypertrophy of the forearm cephalicvein, occlusion of the cephalic vein just above the elbow and collateral flow via antecubital vein and the forearm milk condenser vein into forearm brachial vein and via the tortuous medial upper arm collateral veins including the brachial and basilic veins. There is 80-90% stenosis of the multiple sites of the outflow veins. I could not access the stenotic segments as mentioned above. A tunneled dialysis catheter was placed via right external jugular vein. 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 There are 2 options to manage the left forearm AV fistula. 1 option could be to create a jump graft b etween the cephalic vein in the upper arm to the basilic vein in the upper arm beyond the stenosis.De renan brachial basilic fistula would be another option. The IR based option is to bring the patient back with anesthesia support because of multiple comorbidities and go retrograde via the left external jugular vein or antegrade via the left ulnar vein to perform angioplasty of these otherwise difficult to reach segments. Please remove the pursestring suture after 24 hours. Thank you for the opportunity to assist in the care of your patient. Electronically Signed: Victor Manuel Castro MD 35:56 PM EST Workstation ID: [id number] Duplex Hemodialysis Access CAR Result Date: 08/11/2023 S/P left radio cephalic AVF. Inflow artery and proximal anastomosis velocities appear within normal/expected limits. Low flow velocities noted within the proximal and mid portions of the fistula withresistive waveforms. Primary outflow of the fistula noted through the brachial vein. IR Tunneled Catheter Result Date: 08/11/2023 IR TUNNELED CATHETER History: dialysis Shaper And Presser: Victor Manuel Castro MD. Modality: Sonography and fluoroscopy Fluoro time: 2.2 minutes Radiation Dose: 50.8 mGy air Kerma. SEDATION: Moderate sedation was administered. 1 milligram of Versed and 50 micrograms of fentanyl IV was used for moderate sedation. Total intra service time of sedation was 166 minutes. The sedation was administered and the patient's vital signs monitored throughout the procedure and recorded in the patient's medical record by the nurse under my direct supervision. Medicines: Not applicable. Anesthesia: Lidocaine 1% withepinephrine, local infiltration Estimated blood loss: < 5 cc. Technique: A thorough discussion of the risks, benefits, and alternatives of the procedure, and if applicable, moderate sedation, was carried out with the patient. This was done at the time of initial consent process for left forearm AV fistula treatment. They were encouraged to ask any questions. [...] preliminary ultrasonogram was performed of the target that revealed a patent and compressible Right internal jugular vein. Pertinent ultrasound images were stored in the PACS for documentation. A sterile prep and drape of the right neck and upper chest was performed using maximal sterile technique. Using aseptic precautions, real-time ultrasound guidance, the target vein was accessed after local anesthetic infiltration and dermatotomy with an access needle. A guidewire was advanced into the central venous system under fluoroscopic guidance. The guidewire however could not be advanced beyond the more central part of the right internal jugular vein. The patient has a history of a prior right IJ tunneled dialysis catheter. The vein is presumed occluded. There was a patentright external jugular vein. Using an identical technique, the vein was accessed with a micropuncture device after local anesthesia and dermatotomy and a 018 guidewire was advanced into the central venous system under fluoroscopy without difficulty. Over the wire following standard technique a peel-away sheath was placed. After local anesthesia, an incision was created at the exit site location and a cuffed tunneled dialysis catheter of an appropriate length was tunneled from the exit site to the venotomy site using a tunneling device. The catheter was advanced into the venous system through the peel-away sheath which was removed. The catheter aspirated and flushed well and was terminally packed with heparin 1000 units per cc. The catheter was secured to skin using nonabsorbable suture and a CHG dressing applied. The venotomy site was closed using Dermabond. An aseptic dressing was applied using the protocol for Dermabond. The patient was transferred to the recovery area and was discha rged from the department in stable condition. Complications: None immediate. Device: 15.5 Albanian x 23 cm cuff to tip Duraflow catheter. Findings: Patent and compressible Right internal jugular vein which is centrally most likely occluded. Patent and compressible right external jugular vein. Final image shows the catheter to be in good position with the catheter tip in the right atrium, an excellent position for use. There is no complication. Impression: Impression: Successful ultrasound and fluoroscopic guided right external jugular vein route cuffed tunneled hemodialysis catheter placement as described above. Thank you for the opportunity to assist in the care of your patient. Electronically Signed: Victor Manuel Castro MD 08/11/2023 4:21 PM EST Workstation ID: [id number] XR Chest 1 View Result Date: 08/10/2023 XR CHEST 1 VW Date of Exam: 08/10/2023 9:27 PM EST Indication: chest discomfort Comparison: Chest radiograph 04/28/2020 Findings: Cardiomediastinal silhouette is unchanged. Left upper lobe calcified granuloma. No focal consolidation or overt pulmonary edema. No pleural effusion or pneumothorax. Osseous structures are unremarkable. Impression: Impression: No evidence of acute cardiopulmonary disease. Electronically Signed: MD Tanvir 08/10/2023 10:00 PM EST Workstation ID: [id number] Current medications: Scheduled Meds:albumin human, , , ALPRAZolam, 1 mg, Oral, Daily aspirin, 81 mg, Oral, Daily calcium gluconate, 1,000 mg, Intravenous, Once carBAMazepine, 200 mg, Oral, Once carBAMazepine, 200 mg, Oral, Nightly [START ON 08/15/2023] cholecalciferol, 5,000 Units, Oral, Once per day on Monday cycloSPORINE modified, 100 mg, Oral, BID gabapentin, 400 mg, Oral, Nightly heparin (porcine), 5,000 Units, Subcutaneous, Q8H hydrALAZINE, 100 mg, Oral, TID insulin detemir, 10 Units, Subcutaneous, Nightly insulin lispro, 2-7 Units, Subcutaneous, 4x Daily AC & at Bedtime lisinopril, 40 mg, Oral, Daily methocarbamol, 500 mg, Oral, Once mycophenolate, 250 mg, Oral, Q12H NIFEdipine XL, 90 mg, Oral, Q24H piperacillin-tazobactam, 3.375 g, Intravenous, Q12H senna-docusate sodium, 2 tablet, Oral, BID sodium bicarbonate, 50 mEq, Intravenous, Once sodium chloride, 10 mL, Intravenous, Q12H sodium zirconium cyclosilicate, 10 g, Oral, Once terazosin, 5 mg, Oral, Nightly Continuous Infusions: PRN Meds:. acetaminophen OR acetaminophen OR acetaminophen albumin human albumin human senna-docusate sodium AND polyethylene glycol AND bisacodyl AND bisacodyl cyclobenzaprine dextrose dextrose diphenhydrAMINE famotidine glucagon (human recombinant) heparin (porcine) HYDROcodone-acetaminophen HYDROmorphone ondansetron ODT OR ondansetron sodium chloride sodium chloride sodium chloride Assessment & Plan Assessment & Plan Active Hospital Problems Diagnosis POA Hyperkalemia [E87.5] Yes Hyperkalemia [E87.5] Unknown AVF (arteriovenous fistula) [I77.0] Unknown Malfunction of arteriovenous dialysis fistula [T82.590A] Unknown History of liver transplant [Z94.4] Not Applicable Immunosuppression [D84.9] Yes Type 2 diabetes mellitus [E11.9] Yes ESRD (end stage renal disease) [N18.6] Yes SAL (nonalcoholic steatohepatitis) [K75.81] Yes Resolved Hospital Problems No resolved problems to display. Brief Hospital Course to date: Aiden Stauffer Jr. is a 48 y.o. male with PMH of T2DM, SAL cirrhosis s/p liver transplant in 2018 on chronic immunosuppression, ESRD on home HD via LUE AVF, h/o discitis/epidural abscess s/p laminectomy and I&D of abscess in 2019 who presented with complaints of LUE pain that radiated across chest anteriorly and described as pressure and HD access issues with associated swelling, redness, warmth and small area of what appeared to be pus at access site (although not draining) Hyperkalemia ESRD on HD Malfunctioning AVF with concern for infected graft -- initial K+ 6.8, improved to 5.7 after treatment in the ED. Some hemolysis noted on repeat labs, so likely slightly higher than true serum value -- ED notified Dr. Edwards with [facility], they are on board and plan for HD. He is aware that alternative routes of access may be warranted. -- IR performed fistulogram with notec hypertrophy of the forearm cephalic vein, occlusion of the cephalic vein just above the elbow and collateral flow via antecubital vein and the forearm milk condenser vein into forearm brachial vein and via the tortuous medial upper arm collateral veins including the brachial and basilic veins. There is 80-90% stenosis of the multiple sites of the outflow veins. Could not access the stenotic segments as mentioned above. Will follow up with vascular surgery as outpatient for this issue. Right tunneled cath was placed 08/11/23 -- continue with empiric ABX with Zosyn, pharmacy dosing vanc-has received 1 dose -- blood cultures NG x24h -- procal slightlyly elevated -- no leukocytosis and afebrile, however, he is on immunosuppression -- consider ID consult- saw Dr. Cayetano Rodriguez in 2019 when he had epidural abscess/discitis -- labs in am H/o SAL cirrhosis s/p liver transplant -- continue antirejection meds T2DM -- hold home meds -- low dose basal insulin with low dose SSI -- HbA1C 6.5 Latest Reference Range & Units 08/11/23 20:36 08/12/23 05:59 08/12/23 11:56 Glucose 70 - 130 mg/dL 194 (H) 134 (H) 148 (H) H/o discitis/epidural abscess (2019) -- s/p laminectomy and I&D of abscess by Dr. Garnica. Followed by ID/Dr. Rodriguez for his complete course of ABX Expected Discharge Location and Transportation: home on oral antibiotics Expected Discharge Expected Discharge Date: 08/13/2023; Expected Discharge Time: DVT prophylaxis: Medical DVT prophylaxis orders are present. AM-PAC 6 Clicks Score (PT): 24 (08/11/232058) CODE STATUS: Code Status and Medical Interventions: Ordered at: 08/11/23 0827 Level Of Support Discussed With: Patient Code Status (Patient has no pulse and is not breathing): CPR (Attempt to Resuscitate) Medical Interventions (Patient has pulse or is breathing): Full Support Maile Jasso APRN 08/12/23 * Glenn Kay MD - 08/12/2023 11:04 AM EST LOS: 1 day Patient Care Team: Edgar Fournier MD as PCP - General (Family Medicine) Chief Complaint: ESRD on home hemodialysis Seen on HD tolerating well so far. Goal UF 2 liter as tolerated. Bp stable. Good access pressure. Hyperkalemia noted. K ~ 6.7 Subjective: Symptoms: Stable. No shortness of breath, chest pain or chest pressure. Diet: Adequate intake. Pain: He reports no pain. History taken from: patient Objective Vital Sign Min/Max for last 24 hours Temp Min: 97.9 ??F (36.6 ??C) Max: 98.6 ??F (37 ??C) BP Min: 71/58 Max: 200/105 Pulse Min: 72 Max: 112 Resp Min: 10 Max: 20 SpO2 Min: 89 % Max: 100 % Flow (L/min) Min: 2 Max: 3 No data recorded Flowsheet Rows Flowsheet Row First Filed Value Admission Height 172.7 cm (68 ) Documented at 08/10/20232023 Admission Weight 136 kg (300 lb) Documented at 08/10/20232023 No intake/output data recorded. I/O last 3 completed shifts: In: 50 [IV Piggyback:50] Out: 1010 Objective: Vital signs: (most recent): Blood pressure 123/58, pulse 99, temperature 98.1 ??F (36.7 ??C), temperature source Oral, resp. rate 18, height 172.7 cm (68 ), weight 136 kg (300 lb), SpO2 96%. Results Review: I reviewed the patient's new clinical results. WBC WBC Date Value Ref Range Status 08/12/2023 6.39 3.40 - 10.80 10*3/mm3 Final 08/10/2023 9.22 3.40 - 10.80 10*3/mm3 Final HGB Hemoglobin Date Value Ref Range Status 08/12/2023 11.5 (L) 13.0 - 17.7 g/dL Final 08/10/2023 13.9 13.0 - 17.7 g/dL Final HCT Hematocrit Date Value Ref Range Status 08/12/2023 36.3 (L) 37.5 - 51.0 % Final 08/10/2023 43.3 37.5 - 51.0 % Final Platlets No results found for: LABPLAT MCV MCV Date Value Ref Range Status 08/12/2023 101.7 (H) 79.0 - 97.0 fL Final 08/10/2023 103.1 (H) 79.0 - 97.0 fL Final Sodium Sodium Date Value Ref Range Status 08/12/2023 137 136 - 145 mmol/L Final 08/11/2023 137 136 - 145 mmol/L Final 08/11/2023 136 136 - 145 mmol/L Final Potassium Potassium Date Value Ref Range Status 08/12/2023 6.4 (C) 3.5 - 5.2 mmol/L Final 08/11/2023 5.7 (H) 3.5 - 5.2 mmol/L Final Comment: Slight hemolysis detected by analyzer. Result may be falsely elevated. 08/11/2023 6.8 (C) 3.5 - 5.2 mmol/L Final Comment: Specimen hemolyzed. Result may be falsely elevated. Hemolyzed specimen. Testing performed per physician request. Chloride Chloride Date Value Ref Range Status 08/12/2023 101 98 - 107 mmol/L Final 08/11/2023 102 98 - 107 mmol/L Final 08/11/2023 101 98 - 107 mmol/L Final CO2 CO2 Date Value Ref Range Status 08/12/2023 19.0 (L) 22.0 - 29.0 mmol/L Final 08/11/2023 18.0 (L) 22.0 - 29.0 mmol/L Final 08/11/2023 19.0 (L) 22.0 - 29.0 mmol/L Final BUN BUN Date Value Ref Range Status 08/12/2023 61 (H) 6 - 20 mg/dL Final 08/11/2023 83 (H) 6 - 20 mg/dL Final 08/11/2023 80 (H) 6 - 20 mg/dL Final Creatinine Creatinine Date Value Ref Range Status 08/12/2023 10.39 (H) 0.76 - 1.27 mg/dL Final 08/11/2023 12.28 (H) 0.76 - 1.27 mg/dL Final 08/11/2023 12.29 (H) 0.76 - 1.27 mg/dL Final Calcium Calcium Date Value Ref Range Status 08/12/2023 8.8 8.6 - 10.5 mg/dL Final 08/11/2023 8.7 8.6 - 10.5 mg/dL Final 08/11/2023 8.6 8.6 - 10.5 mg/dL Final PO4 No results found for: CAPO4 Albumin Albumin Date Value Ref Range Status 08/11/2023 4.1 3.5 - 5.2 g/dL Final Magnesium No results found for: MG Uric Acid No results found for: URICACID Medication Review: Yes Assessment & Plan Hyperkalemia SAL (nonalcoholic steatohepatitis) History of liver transplant Immunosuppression Type 2 diabetes mellitus ESRD (end stage renal disease) Hyperkalemia AVF (arteriovenous fistula) Malfunction of arteriovenous dialysis fistula Assessment & Plan ESRD: On home hemodialysis. Follows with [facility] Malfunctioning AV access: IR attempted fistulogram but unable to fix the stenosis. Need vascular surgery referral as outpatient Acid base and Elytes: Hyperkalemia. Management with HD. 2k bath. Does have issues with chronic hyperkalemia on K binder at home ( reportedly) Volume status: Stable. Access site infection: Small erythema and swelling noted at cannulation site. ON abx. He will likely need 7-10 days of oral abx w MRSA coverage if discharge today. 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 Recs Discussed with patient's outpatient primary HD RN. Patient needs re- education/training for HHD using TDC. Patient believes he has received necessary training in the past. Would recommend holding off on HHD on discharge until follows up with his clinic on Monday. Continue outpatient daily lokelma on discharge I discussed the patients findings and my recommendations with patient Glenn Kay MD 08/12/23 11:04 EST * Edgar Adair [facility] - 08/12/2023 7:45 AM EST Pharmacy Consult-Vancomycin Dosing Aiden Stauffer Jr. is a 48 y.o. male receiving vancomycin therapy. Indication: bacteremia, SSTI Consulting Provider: Kaila Jhaveri MD ID Consult: no Goal Trough: 15-20 mcg/ml Current Antimicrobial Therapy Vancomycin day 3 Zosyn 3.375gm q12gh Allergies Allergies as of 08/10/2023 (No Known Allergies) Labs Results from last 7 days Lab Units 08/12/23 0559 08/11/23 0451 08/11/23 0048 BUN mg/dL 61* 83* 80* CREATININE mg/dL 10.39* 12.28* 12.29* Results from last 7 days Lab Units 08/12/23 0559 08/10/232129 WBC 10*3/mm3 6.39 9.22 Evaluation of Dosing Last Dose Received in the ED/Outside Facility: n/a Is Patient on Dialysis or Renal Replacement: ESRD HD Ht - 172.7 cm (68 ) Wt - 136 kg (300 lb) Estimated Creatinine Clearance: 11.6 mL/min (A) (by C-G formula based on SCr of 10.39 mg/dL (H)). Intake & Output (last 3 days) 08/09 0708/10 0708/10 0708/11 0708/11 0708/12 0708/12 0708/13 07 IV Piggyback 50 Total Intake(mL/kg) 50 (0.4) Dialysis 1010 Total Output 1010 Net -960 Microbiology and Radiology Microbiology Results (last 10 days) Procedure Component Value - Date/Time MRSA Screen, PCR (Inpatient) - Swab, Nares [[id number]] (Normal) Collected: 08/10/232333 Lab Status: Final result Specimen: Swab from Nares Updated: 08/11/23740 MRSA PCR Negative Narrative: The negative predictive value of this diagnostic test is high and should only be used to consider de-escalating anti-MRSA therapy. A positive result may indicate colonization with MRSA and must be correlated clinically. MRSA Negative Blood Culture - Blood, Hand, Right [[id number]] (Normal) Collected: 08/10/232149 Lab Status: Preliminary result Specimen: Blood from Hand, Right Updated: 08/12/2314 Blood Culture No growth at 24 hours Blood Culture - Blood, Arm, Right [[id number]] (Normal) Collected: 08/10/232129 Lab Status: Preliminary result Specimen: Blood from Arm, Right Updated: 08/12/2314 Blood Culture No growth at 24 hours Vancomycin Levels: Results from last 7 days Lab Units 08/12/23 0559 VANCOMYCIN RM mcg/mL 19.80 Assessment/Plan: Vancomycin dosing for bacteremia, SSTI Goal trough; 15-20 mcg/ml 08/12 SCr - 10.39, plan HD 08/12 08/12 WBC - 6.39 08/12 vancomycin level - 19.8 mcg/ml @0559 Plan for HD 08/12 Will re-dose with vancomycin 1250mg x1 following HD 08/12 Obtain vancomycin level 08/13 to evaluate regimen Monitor dialysis schedule, clinical status and infusion related reactions Follow vancomycin levels and adjust dose accordingly Thanks Edgar Adair [facility] 08/12/2023 07:43 EST documented in this encounter H&P Notes * Kaila Jhaveri MD - 08/11/2023 8:29 AM EST Images from the original note were not included. [facility] Medicine Services HISTORY AND PHYSICAL Patient Name: Aiden Stauffer Jr. : 1975 Primary Care Physician: Edgar Fournier MD Date of admission: 08/10/2023 Subjective Subjective Chief Complaint: L forearm pain HPI: Aiden Stauffer Jr. is a 48 y.o. male with PMH of T2DM, SAL cirrhosis s/p liver transplant in 2017 on chronic immunosuppression, ESRD on home HD via LUE AVF, h/o discitis/epidural abscess s/p laminectomy and I&D of abscess in 2019 who presented with complaints of LUE pain and HD access issues. Pt reports that he does HD , ,, and Fridays at home and was last able to access his AVF successfully on 08/08. On the day prior to admission, he noticed swelling, redness, warmth and small area of what appeared to be pus at access site (although not draining). He denies any fevers or chills.He does note severe pain in that arm that seems to be spreading proximally. Personal History Past Medical History: Diagnosis Date ??? Diabetes mellitus ??? Dialysis patient ??? Hemorrhage THROAT VARICIES ??? Kidney failure ??? Liver transplanted Past Surgical History: Procedure Laterality Date ??? ARTERIOVENOUS FISTULA Left 2019 ??? CARDIAC CATHETERIZATION times 2022 ??? CHOLECYSTECTOMY ??? ENDOSCOPY N/A 05/04/2020 Procedure: ESOPHAGOGASTRODUODENOSCOPY; Surgeon: Dewey Betancourt MD; Location: [facility] ENDOSCOPY; Service: Gastroenterology; Laterality: N/A; ??? LUMBAR LAMINECTOMY DISCECTOMY DECOMPRESSION N/A 04/29/2020 Procedure: LUMBAR LAMINECTOMY DISCECTOMY DECOMPRESSION POSTERIOR L4-5; Surgeon: Yinka Garnica MD; Location: [facility] OR; Service: Neurosurgery; Laterality: N/A; Family History: reviewed and unremarkable Social History: reports that he has never smoked. He has never used smokeless tobacco. He reports that he does not drink alcohol and does not use drugs. Social History Social History Narrative ??? Not on file Medications: Available home medication information reviewed. (Not in a hospital admission) No current facility-administered medications on file prior to encounter. Current Outpatient Medications on File Prior to Encounter Medication Sig Dispense Refill ??? ALPRAZolam (XANAX) 1 MG tablet Take 1 tablet by mouth Daily. Take before dialysis ??? aspirin 81 MG chewable tablet Chew 1 tablet Daily. ??? carBAMazepine (TEGretol) 200 MG tablet Take 1 tablet by mouth Every Night. For feet cramps ??? cyclobenzaprine (FLEXERIL) 10 MG tablet Take 1 tablet by mouth 3 (Three) Times a Day As Needed for Muscle Spasms. ??? cycloSPORINE modified (NEORAL) 25 MG capsule Take 2 capsules by mouth 2 (Two) Times a Day. ??? doxazosin (CARDURA) 8 MG tablet Take 1 tablet by mouth At Night As Needed. ??? entecavir (BARACLUDE) 0.5 MG tablet Take 1 tablet by mouth Daily. For 7 days, started 04-27-20 ??? famotidine (PEPCID) 20 MG tablet Take 1 tablet by mouth 2 (Two) Times a Day As Needed for Heartburn. ??? gabapentin (NEURONTIN) 800 MG tablet Take 0.5 tablets by mouth Every Night. ??? hydrALAZINE (APRESOLINE) 50 MG tablet Take 6 tablets by mouth 3 (Three) Times a Day. ??? hydrOXYzine pamoate (VISTARIL) 25 MG capsule Take 1 capsule by mouth Daily. 1 hr prior to dialysis ??? insulin NPH (humuLIN N,novoLIN N) 100 UNIT/ML injection Inject under the skin into the appropriate area as directed 4 (Four) Times a Day. Sliding scale 4 times day ??? lisinopril (PRINIVIL,ZESTRIL) 40 MG tablet Take 1 tablet by mouth Daily. 30 tablet 0 ??? methocarbamol (ROBAXIN) 500 MG tablet Take 1 tablet by mouth 1 (One) Time. ??? mycophenolate (CELLCEPT) 250 MG capsule Take 1 capsule by mouth 2 (Two) Times a Day. ??? NIFEdipine CC (ADALAT CC) 90 MG 24 hr tablet Take 1 tablet by mouth 2 (Two) Times a Day. ??? ondansetron (ZOFRAN) 4 MG tablet Take 1 tablet by mouth Every 8 (Eight) Hours As Needed for Nausea or Vomiting. ??? vitamin D (ERGOCALCIFEROL) 1.25 MG (61832 UT) capsule capsule Take 1 capsule by mouth 2 (Two) Times a Week. Takes on Monday and No Known Allergies Objective Objective Vital Signs: Temp: [98.4 ??F (36.9 ??C)] 98.4 ??F (36.9 ??C) Heart Rate: [74-101] 97 Resp: [16] 16 BP: (130-196)/(89-106) 183/97 Physical Exam Constitutional: Awake, alert Eyes: PERRLA, sclerae anicteric, no conjunctival injection HENT: NCAT, mucous membranes moist Neck: Supple, no thyromegaly, no lymphadenopathy, trachea midline Respiratory: Clear to auscultation bilaterally, nonlabored respirations Cardiovascular: RRR, no murmurs, rubs, or gallops, palpable pedal pulses bilaterally Gastrointestinal: Positive bowel sounds, soft, nontender, nondistended Musculoskeletal: No bilateral ankle edema, no clubbing or cyanosis to extremities. LUE with AVF of forearm with erythema and streaking medially from access site, small area of non-draining purulence,unable to palpate thrill as too tender to light touch Psychiatric: odd affect, cooperative Neurologic: Oriented x 3, strength symmetric in all extremities, Cranial Nerves grossly intact to confrontation, speech clear Skin: dry, scaly skin of face, LUE with findings as noted above Result Review: I have personally reviewed the results from the time of this admission to 08/11/2023 08:51 EST and agree with these findings: [x] Laboratory list / accordion [x] Microbiology [x] Radiology [x] EKG/Telemetry [x] Cardiology/Vascular [] Pathology [x] Old records [] Other: Most notable findings include: LAB RESULTS: Lab 08/11/231 08/10/23 2130 WBC -- 9.22 HEMOGLOBIN -- 13.9 HEMATOCRIT -- 43.3 PLATELETS -- 278 NEUTROS ABS -- 6.08 IMMATURE GRANS (ABS) -- 0.17* LYMPHS ABS -- 1.97 MONOS ABS -- 0.55 EOS ABS -- 0.42* MCV -- 103.1* PROCALCITONIN 0.33* -- LACTATE -- 1.0 Lab 08/11/2345008/11/2347 SODIUM 137 136 POTASSIUM 5.7* 6.8* CHLORIDE 102 101 CO2 18.0* 19.0* ANION GAP 17.0* 16.0* BUN 83* 80* CREATININE 12.28* 12.29* EGFR 4.5* 4.5* GLUCOSE 104* 130* CALCIUM 8.7 8.6 PHOSPHORUS 4.7* -- Lab 08/11/2347 TOTAL PROTEIN 7.0 ALBUMIN 4.1 GLOBULIN 2.9 ALT (SGPT) <5 AST (SGOT) <5 BILIRUBIN 0.3 ALK PHOS 197* Microbiology Results (last 10 days) Procedure Component Value - Date/Time MRSA Screen, PCR (Inpatient) - Swab, Nares [[id number]] (Normal) Collected: 08/10/23 2334 Lab Status: Final result Specimen: Swab from Nares Updated: 08/11/23740 MRSA PCR Negative Narrative: The negative predictive value of this diagnostic test is high and should only be used to consider de-escalating anti-MRSA therapy. A positive result may indicate colonization with MRSA and must be correlated clinically. MRSA Negative XR Chest 1 View Result Date: 08/10/2023 XR CHEST 1 VW Date of Exam: 08/10/2023 9:27 PM EST Indication: chest discomfort Comparison: Chest radiograph 04/28/2020 Findings: Cardiomediastinal silhouette is unchanged. Left upper lobe calcified granuloma. No focal consolidation or overt pulmonary edema. No pleural effusion or pneumothorax. Osseous structures are unremarkable. Impression: Impression: No evidence of acute cardiopulmonary disease. Electronically Signed: MD Tanvir 08/10/2023 10:00 PM EST Workstation ID: [id number] Assessment & Plan Assessment & Plan Active Hospital Problems Diagnosis POA ??? Hyperkalemia [E87.5] Yes ??? Hyperkalemia [E87.5] Unknown Priority: High ??? Malfunction of arteriovenous dialysis fistula [T82.590A] Unknown Priority: High ??? AVF (arteriovenous fistula) [I77.0] Unknown ??? History of liver transplant [Z94.4] Not Applicable ??? Immunosuppression [D84.9] Yes ??? Type 2 diabetes mellitus [E11.9] Yes ??? ESRD (end stage renal disease) [N18.6] Yes ??? SAL (nonalcoholic steatohepatitis) [K75.81] Yes Mr. Stauffer is a 48 yo with PMH of T2DM, SAL cirrhosis s/p liver transplant in 2018 on chronic immunosuppression, ESRD on home HD via LUE AVF, h/o discitis/epidural abscess s/p laminectomy and I&D of abscess in 2019 who presented with complaints of LUE pain and HD access issues. He was found tohave significant hyperkalemia and peaked T waves on initial EKG, however, treatment in the ED showed adequate reduction in his hyperkalemia and repeat EKG shows improvement. Plan: Hyperkalemia ESRD on HD Malfunctioning AVF with concern for infected graft -- initial K+ 6.8, improved to 5.7 after treatment in the ED. Some hemolysis noted on repeat labs, so likely slightly higher than true serum value -- ED notified Dr. Edwards with [facility], they are on board and plan for HD today. He is aware that alternative routes of access may be warranted. Will keep pt on clear liquid diet for now, but did advise him that he may need to be NPO but will wait to see what [facility] says about access -- get doppler of AVF, will consider CT of LUE -- continue with empiric ABX with Vanc/Zosyn -- blood cultures x 2 PENDING -- procal PENDING -- no leukocytosis and afebrile, however, he is on immunosuppression -- consider ID consult- saw Dr. Cayetano Rodriguez in 2019 when he had epidural abscess/discitis -- repeat labs after HD/in the am to ensure K+ within acceptable range H/o SAL cirrhosis s/p liver transplant -- continue antirejection meds T2DM -- hold home meds -- low dose basal insulin with low dose SSI -- check HbA1C in am H/o discitis/epidural abscess (2019) -- s/p laminectomy and I&D of abscess by Dr. Garnica. Followed by ID/Dr. Rodriguez for his complete course of ABX Total time spent: 75 minutes Time spent includes time reviewing chart, [id number] time, counseling patient/family/caregiver, ordering medications/tests/procedures, communicating with other health human services care specialist, documenting clinical information in the electronic health record, and coordination of care. DVT prophylaxis: TALIB CODE STATUS: Full Code Code Status and Medical Interventions: Ordered at: 08/11/23 0827 Level Of Support Discussed With: Patient Code Status (Patient has no pulse and is not breathing): CPR (Attempt to Resuscitate) Medical Interventions (Patient has pulse or is breathing): Full Support Expected Discharge Expected Discharge Date: 08/14/2023; Expected Discharge Time: Kaila Jhaveri MD 08/11/23 documented in this encounter Procedure Notes * Victor Manuel Castro MD - 08/11/2023 4:10 PM EST The following procedure was performed: LFA AVF with complex anatomy and severe upper arm outflow veins stenosis. Could not negotiate the tortous anatomy. Can try again under GA using retrograde L neck vein access. Alternatively can go for a surgical jump graft from ceph vein at the elbow to basilicvein in the mid upper arm or BBF. D/W Dr. Kay. RIJ likely occluded centrally. Could not pass the wire. REJ 23 cm TDC placed. Please see corresponding Radiology report for in detail procedural information. The Radiology report will be dictated shortly, if not done so already. Please see the IR RN note for the information regarding medicines administered if any, timothy-procedural vitals and I/O information. * Victor Manuel Castro MD - 08/11/2023 12:30 PM EST [facility] Vascular Interventional Radiology History & Physicial Patient Name:Aiden Stauffer Jr. : 1975 Primary Care Physician: Edgar Fournier MD Referring Physician: No ref. provider found Date of admission: 08/10/2023 Subjective Reason for Consult: Fistula failure History of Present Illness Aiden Stauffer Jr. is a 48 y.o. male referred to IR as noted above. Pulsatile LFA AVF with an infected scab. Suspected low arterial pressures on HD. Active Hospital Problems: Active Hospital Problems Diagnosis Hyperkalemia Hyperkalemia AVF (arteriovenous fistula) Malfunction of arteriovenous dialysis fistula History of liver transplant Immunosuppression Type 2 diabetes mellitus ESRD (end stage renal disease) SAL (nonalcoholic steatohepatitis) Personal History Past Medical History: Diagnosis Date Diabetes mellitus Dialysis patient Hemorrhage THROAT VARICIES Kidney failure Liver transplanted Past Surgical History: Procedure Laterality Date ARTERIOVENOUS FISTULA Left 2019 CARDIAC CATHETERIZATION times 2022 CHOLECYSTECTOMY ENDOSCOPY N/A 05/04/2020 Procedure: ESOPHAGOGASTRODUODENOSCOPY; Surgeon: Dewey Betancourt MD; Location: [facility] ENDOSCOPY; Service: Gastroenterology; Laterality: N/A; LUMBAR LAMINECTOMY DISCECTOMY DECOMPRESSION N/A 04/29/2020 Procedure: LUMBAR LAMINECTOMY DISCECTOMY DECOMPRESSION POSTERIOR L4-5; Surgeon: Yinka Garnica MD; Location: [facility] OR; Service: Neurosurgery; Laterality: N/A; Family History: His family history is not on file. Social History: He reports that he has never smoked. He has never used smokeless tobacco. He reports that he does not drink alcohol and does not use drugs. Home Medications: ALPRAZolam, NIFEdipine CC, aspirin, carBAMazepine, cycloSPORINE modified, cyclobenzaprine, doxazosin, entecavir, famotidine, gabapentin, hydrALAZINE, hydrOXYzine pamoate, insulin NPH, lisinopril, methocarbamol, mycophenolate, ondansetron, and vitamin D Current Medications: diphenhydrAMINE fentaNYL citrate (PF) heparin (porcine) midazolam acetaminophen OR acetaminophen OR acetaminophen ALPRAZolam aspirin senna-docusate sodium AND polyethylene glycol AND bisacodyl AND bisacodyl calcium gluconate carBAMazepine [START ON 08/12/2023] carBAMazepine [START ON 08/15/2023] cholecalciferol cyclobenzaprine cycloSPORINE modified dextrose dextrose diphenhydrAMINE famotidine gabapentin glucagon (human recombinant) heparin (porcine) hydrALAZINE HYDROcodone-acetaminophen HYDROmorphone insulin detemir insulin lispro lisinopril methocarbamol mycophenolate NIFEdipine XL ondansetron ODT OR ondansetron Pharmacy to dose vancomycin piperacillin-tazobactam sodium bicarbonate sodium chloride sodium chloride sodium chloride sodium chloride sodium zirconium cyclosilicate terazosin vancomycin (dosing per levels) Allergies: No Known Allergies Review of Systems IR Procedure pertinent significant findings are mentioned in the PMH and PSH above. Objective Visit Vitals BP 159/82 Pulse 84 Temp 98.4 ??F (36.9 ??C) (Oral) Resp 16 Ht 172.7 cm (68 ) Wt 136 kg (300 lb) SpO2 97% BMI 45.61 kg/m?? Physical Exam A&Ox3. Able to communicate No Apparent Distress Average physique CVS: VS as noted. Chart reviewed. Stable for the procedure. Respiratory: Non labored breathing. No signs of respiratory compromise. Result Review I have personally reviewed the results from the time of this admission to 08/11/2023 12:49 EST and agree with these findings. [x] Laboratory [] Microbiology [x] Radiology [] EKG/Telemetry [] Cardiology/Vascular [] Pathology [] Old records [] Other: Most notable findings include: As noted: Results from last 7 days Lab Units 08/11/23 1140 08/10/23 2130 INR 1.03 -- WBC 10*3/mm3 -- 9.22 HEMOGLOBIN g/dL -- 13.9 HEMATOCRIT % -- 43.3 PLATELETS 10*3/mm3 -- 278 Results from last 7 days Lab Units 08/11/23 0451 08/11/23 0048 SODIUM mmol/L 137 136 POTASSIUM mmol/L 5.7* 6.8* CHLORIDE mmol/L 102 101 CO2 mmol/L 18.0* 19.0* BUN mg/dL 83* 80* CREATININE mg/dL 12.28* 12.29* EGFR mL/min/1.73 4.5* 4.5* GLUCOSE mg/dL 104* 130* Lab 08/11/23 0048 TOTAL PROTEIN 7.0 ALBUMIN 4.1 GLOBULIN 2.9 ALT (SGPT) <5 AST (SGOT) <5 BILIRUBIN 0.3 ALK PHOS 197* Estimated Creatinine Clearance: 9.8 mL/min (A) (by C-G formula based on SCr of 12.28 mg/dL (H)). Creatinine Date Value Ref Range Status 08/11/2023 12.28 (H) 0.76 - 1.27 mg/dL Final 08/11/2023 12.29 (H) 0.76 - 1.27 mg/dL Final SARS-CoV-2, [place] Date Value Ref Range Status 05/01/2022 Not Detected Not Detected Final Comment: This test is an amplified nucleic acid assay performed by real time PCR. This test has been authorized by the FDA under an Emergency Use Authorization (EUA). This test is used for clinical purposes. This test has been validated in accordance with the FDA's guidance document Policy for Diagnostic Tests for Coronavirus Disease-2019 during the Public Health Emergency issued on October 28, 2019. Thistest is only authorized for use during the time specified by the declaration that circumstances exist justifying the authorization of the emergency use of in vitro diagnostic tests for detection of SARS-CoV2 virus and/or diagnosis of COVID-19 infection under section 564(B) (1) of the Act, 21 U.S.C.360bbb-3 (b) (1) applies, unless authorization is terminated or revoked sooner. Test results have been sent to the [facility] in accordance with state requirements. For a fact sheet for healthcare providers, see https://www.fda.gov/media/978245/download. For a fact sheet for patients, see https://www.fda.gov/media/541644/download. No results found for: PREGTESTUR , PREGSERUM , HCG , HCGQUANT ASA SCALE ASSESSMENT (applicable ONLY if sedation planned): 3 MALLAMPATI CLASSIFICATION (applicable ONLY if sedation planned): 2 Assessment / Plan Aiden Stauffer Jr. is a 48 y.o. male referred to the IR service with above problem. Plan: As above. TDC if needed. Notice: The note was created before the performance of the procedure. It might have been left in the pending status and signed off after the procedure. The time stamp on the note may be misleading. Victor Manuel Castro MD Vascular Interventional Radiology 08/11/23 12:49 PM EST documented in this encounter Consult Notes * Glenn Kay MD - 08/11/2023 9:51 AM EST Patient Care Team: Edgar Fournier MD as PCP - General (Family Medicine) Chief complaint: ESRD Malfunctioning AV access. History of Present Illness: Mr Stauffer is a 48 yo gentleman w hx of ESRD on home hemodialysis, HTN, morbid obesity, he is admitted after he noticed v high Arterial pressure after cannulation for HD last night. Patient decided to come to hospital for further evaluation. Patient has been on for 4 yrs.Previously he was in center and now doing HD at home. He follows with [facility] as outpatient. On evaluation today patient has mild erythema at cannulation site. Patient cannulated at different site but v high arterial pressure AP 210 on BFR 220. HD stopped. Discussed with IR plan for fistulogram today. Will attempt HD after fistulogram Review of Systems Constitutional: Negative. HENT: Negative. Respiratory: Negative. Cardiovascular: Negative. Gastrointestinal: Negative. Genitourinary: Negative. Musculoskeletal: Negative. Skin: Negative. Neurological: Negative. Hematological: Negative. Psychiatric/Behavioral: Negative. Past Medical History: Diagnosis Date Diabetes mellitus Dialysis patient Hemorrhage THROAT VARICIES Kidney failure Liver transplanted , Past Surgical History: Procedure Laterality Date ARTERIOVENOUS FISTULA Left 2019 CARDIAC CATHETERIZATION times 2022 CHOLECYSTECTOMY ENDOSCOPY N/A 05/04/2020 Procedure: ESOPHAGOGASTRODUODENOSCOPY; Surgeon: Dewey Betancourt MD; Location: [facility] ENDOSCOPY; Service: Gastroenterology; Laterality: N/A; LUMBAR LAMINECTOMY DISCECTOMY DECOMPRESSION N/A 04/29/2020 Procedure: LUMBAR LAMINECTOMY DISCECTOMY DECOMPRESSION POSTERIOR L4-5; Surgeon: Yinka Garnica MD; Location: [facility] OR; Service: Neurosurgery; Laterality: N/A; , History reviewed. No pertinent family history., Social History Socioeconomic History Marital status: Tobacco Use Smoking status: Never Smokeless tobacco: Never Substance and Sexual Activity Alcohol use: Never Drug use: Never E-cigarette/Vaping E-cigarette/Vaping Substances E-cigarette/Vaping Devices , (Not in a hospital admission) , and Scheduled Meds: carBAMazepine, 200 mg, Oral, Once cycloSPORINE modified, 100 mg, Oral, BID mycophenolate, 250 mg, Oral, Q12H NIFEdipine XL, 90 mg, Oral, Q24H Objective Vital Signs Temp: [98.4 ??F (36.9 ??C)] 98.4 ??F (36.9 ??C) Heart Rate: [74-101] 83 Resp: [16] 16 BP: (130-196)/(82-106) 159/82 I/O this shift: In: 50 [IV Piggyback:50] Out: - No intake/output data recorded. Physical Exam Constitutional: General: He is not in acute distress. Appearance: Normal appearance. He is not ill-appearing. HENT: Head: Normocephalic. Nose: Nose normal. Mouth/Throat: Mouth: Mucous membranes are moist. Eyes: Pupils: Pupils are equal, round, and reactive to light. Cardiovascular: Rate and Rhythm: Normal rate. Pulses: Normal pulses. Heart sounds: Normal heart sounds. No murmur heard. No friction rub. Pulmonary: Effort: Pulmonary effort is normal. Abdominal: General: Abdomen is flat. Musculoskeletal: General: No swelling or tenderness. Normal range of motion. Cervical back: Normal range of motion. Right lower leg: No edema. Left lower leg: No edema. Skin: General: Skin is warm. Comments: Left forearm AV fistula. Small erythema at the cannulation site Neurological: General: No focal deficit present. Mental Status: He is alert and oriented to person, place, and time. Mental status is at baseline. Results Review: I reviewed the patient's new clinical results. WBC WBC Date Value Ref Range Status 08/10/2023 9.22 3.40 - 10.80 10*3/mm3 Final HGB Hemoglobin Date Value Ref Range Status 08/10/2023 13.9 13.0 - 17.7 g/dL Final HCT Hematocrit Date Value Ref Range Status 08/10/2023 43.3 37.5 - 51.0 % Final Platlets No results found for: LABPLAT MCV MCV Date Value Ref Range Status 08/10/2023 103.1 (H) 79.0 - 97.0 fL Final Sodium Sodium Date Value Ref Range Status 08/11/2023 137 136 - 145 mmol/L Final 08/11/2023 136 136 - 145 mmol/L Final Potassium Potassium Date Value Ref Range Status 08/11/2023 5.7 (H) 3.5 - 5.2 mmol/L Final Comment: Slight hemolysis detected by analyzer. Result may be falsely elevated. 08/11/2023 6.8 (C) 3.5 - 5.2 mmol/L Final Comment: Specimen hemolyzed. Result may be falsely elevated. Hemolyzed specimen. Testing performed per physician request. Chloride Chloride Date Value Ref Range Status 08/11/2023 102 98 - 107 mmol/L Final 08/11/2023 101 98 - 107 mmol/L Final CO2 CO2 Date Value Ref Range Status 08/11/2023 18.0 (L) 22.0 - 29.0 mmol/L Final 08/11/2023 19.0 (L) 22.0 - 29.0 mmol/L Final BUN BUN Date Value Ref Range Status 08/11/2023 83 (H) 6 - 20 mg/dL Final 08/11/2023 80 (H) 6 - 20 mg/dL Final Creatinine Creatinine Date Value Ref Range Status 08/11/2023 12.28 (H) 0.76 - 1.27 mg/dL Final 08/11/2023 12.29 (H) 0.76 - 1.27 mg/dL Final Calcium Calcium Date Value Ref Range Status 08/11/2023 8.7 8.6 - 10.5 mg/dL Final 08/11/2023 8.6 8.6 - 10.5 mg/dL Final PO4 No results found for: CAPO4 Albumin Albumin Date Value Ref Range Status 08/11/2023 4.1 3.5 - 5.2 g/dL Final Magnesium No results found for: MG Uric Acid No results found for: URICACID Assessment & Plan Hyperkalemia SAL (nonalcoholic steatohepatitis) History of liver transplant Immunosuppression Type 2 diabetes mellitus ESRD (end stage renal disease) Hyperkalemia AVF (arteriovenous fistula) Malfunction of arteriovenous dialysis fistula Assessment & Plan ESRD: On home hemodialysis. Follows with [facility] clinic Malfunctioning AV access: Plan for Fistulogram today Acid base and Elytes: Hyperkalemia Volume status: Stable. Recs IR consult for fistulogram today Lokelma [id number] 1. Plan for HD afterwards. I discussed the patients findings and my recommendations with patient Glenn Kay MD 08/11/23 09:51 EST documented in this encounter Nursing Notes * Tito Golden RN - 08/14/2023 4:41 AM EST Problem: Adult Inpatient Plan of Care Goal: Plan of Care Review Outcome: Ongoing, Progressing Goal: Patient-Specific Goal (Individualized) Outcome: Ongoing, Progressing Goal: Absence of Hospital-Acquired Illness or Injury Outcome: Ongoing, Progressing Intervention: Identify and Manage Fall Risk Recent Flowsheet Documentation Taken 08/14/2023 0400 by Tito Golden RN Safety Promotion/Fall Prevention: activity supervised assistive device/personal items within reach clutter free environment maintained toileting scheduled safety round/check completed room organization consistent nonskid shoes/slippers when out of bed Taken 08/14/2023 0200 by Tito Golden RN Safety Promotion/Fall Prevention: activity supervised assistive device/personal items within reach clutter free environment maintained toileting scheduled safety round/check completed room organization consistent nonskid shoes/slippers when out of bed Taken 08/14/2023 0000 by Tito Golden RN Safety Promotion/Fall Prevention: activity supervised assistive device/personal items within reach clutter free environment maintained toileting scheduled safety round/check completed room organization consistent nonskid shoes/slippers when out of bed Taken 08/13/2023 2200 by Tito Golden RN Safety Promotion/Fall Prevention: activity supervised assistive device/personal items within reach clutter free environment maintained toileting scheduled safety round/check completed room organization consistent nonskid shoes/slippers when out of bed Taken 08/13/2023 2106 by Tito Golden RN Safety Promotion/Fall Prevention: activity supervised assistive device/personal items within reach clutter free environment maintained toileting scheduled safety round/check completed room organization consistent nonskid shoes/slippers when out of bed Taken 08/13/2023 2000 by Tito Golden RN Safety Promotion/Fall Prevention: activity supervised assistive device/personal items within reach clutter free environment maintained toileting scheduled safety round/check completed room organization consistent nonskid shoes/slippers when out of bed Intervention: Prevent Skin Injury Recent Flowsheet Documentation Taken 08/14/2023 0400 by Tito Golden RN Body Position: position changed independently Skin Protection: adhesive use limited incontinence pads utilized tubing/devices free from skin contact Taken 08/14/2023 0200 by Tito Golden RN Body Position: position changed independently Skin Protection: adhesive use limited incontinence pads utilized tubing/devices free from skin contact Taken 08/14/2023 0000 by Tito Golden RN Body Position: position changed independently Skin Protection: adhesive use limited incontinence pads utilized tubing/devices free from skin contact Taken 08/13/2023 220 by Tito Golden RN Body Position: position changed independently Skin Protection: adhesive use limited incontinence pads utilized tubing/devices free from skin contact Taken 08/13/20232105 by Tito Golden RN Body Position: position changed independently Skin Protection: adhesive use limited tubing/devices free from skin contact Taken 08/13/20231999 by Tito Golden RN Body Position: position changed independently Skin Protection: adhesive use limited incontinence pads utilized tubing/devices free from skin contact Intervention: Prevent and Manage VTE (Venous Thromboembolism) Risk Recent Flowsheet Documentation Taken 08/14/2023 0400 by Tito Golden RN Activity Management: up ad shelia Taken 08/14/2023 0200 by Tito Golden RN Activity Management: up ad shelia Taken 08/14/2023 0000 by Tito Golden RN Activity Management: up ad shelia Taken 08/13/20232199 by Tito Golden RN Activity Management: up ad shelia Taken 08/13/20232105 by Tito Golden RN Activity Management: up ad shelia Range of Motion: active ROM (range of motion) encouraged Taken 08/13/20231999 by Tito Golden RN Activity Management: up ad shelia Intervention: Prevent Infection Recent Flowsheet Documentation Taken 08/14/2023 0400 by Tito Golden RN Infection Prevention: cohorting utilized environmental surveillance performed equipment surfaces disinfected hand hygiene promoted rest/sleep promoted single patient room provided Taken 08/14/2023 0200 by Tito Golden RN Infection Prevention: cohorting utilized environmental surveillance performed equipment surfaces disinfected hand hygiene promoted rest/sleep promoted single patient room provided Taken 08/14/2023 by Tito Golden RN Infection Prevention: cohorting utilized environmental surveillance performed equipment surfaces disinfected hand hygiene promoted rest/sleep promoted single patient room provided Taken 08/13/20232199 by Tito Golden RN Infection Prevention: cohorting utilized environmental surveillance performed equipment surfaces disinfected hand hygiene promoted rest/sleep promoted single patient room provided Taken 08/13/20232105 by Tito Golden RN Infection Prevention: cohorting utilized environmental surveillance performed equipment surfaces disinfected hand hygiene promoted rest/sleep promoted single patient room provided Taken 08/13/20231999 by Tito Golden RN Infection Prevention: cohorting utilized environmental surveillance performed equipment surfaces disinfected hand hygiene promoted rest/sleep promoted single patient room provided Goal: Optimal Comfort and Wellbeing Outcome: Ongoing, Progressing Intervention: Monitor Pain and Promote Comfort Recent Flowsheet Documentation Taken 08/13/20232105 by Tito Golden watermelon inspector Interventions: see [facility] Intervention: Provide Person-Centered Care Recent Flowsheet Documentation Taken 08/13/20232105 by Tito Golden RN Trust Relationship/Rapport: care explained choices provided emotional support provided empathic listening provided questions answered questions encouraged thoughts/feelings acknowledged reassurance provided Goal: Readiness for Transition of Care Outcome: Ongoing, Progressing Problem: Pain Acute Goal: Acceptable Pain Control and Functional Ability Outcome: Ongoing, Progressing Intervention: Prevent or Manage Pain Recent Flowsheet Documentation Taken 08/14/2023 0400 by Tito Golden tire stripper Review/Management: medications reviewed Taken 08/14/2023 0200 by Tito Gloden tire stripper Review/Management: medications reviewed Taken 08/13/20232199 by Tito Golden tire stripper Review/Management: medications reviewed Taken 08/13/20232105 by Tito Golden tire stripper Review/Management: medications reviewed Taken 08/13/20231999 by Tito Golden tire stripper Review/Management: medications reviewed Intervention: Develop Pain Management Plan Recent Flowsheet Documentation Taken 08/13/20232105 by Tito Golden watermelon inspector Interventions: see [facility] Intervention: Optimize Psychosocial Wellbeing Recent Flowsheet Documentation Taken 08/13/20232105 by Tito Golden RN Diversional Activities: smartphone television Problem: Device-Related Complication Risk (Hemodialysis) Goal: Safe, Effective Therapy Delivery Outcome: Ongoing, Progressing Intervention: Optimize Device Care and Function Recent Flowsheet Documentation Taken 08/14/2023 0400 by Tito Golden RN Medication Review/Management: medications reviewed Taken 08/14/2023199 by Tito Golden RN Medication Review/Management: medications reviewed Taken 08/13/20232199 by Tito Golden RN Medication Review/Management: medications reviewed Taken 08/13/20232105 by Tito Golden tire stripper Review/Management: medications reviewed Taken 08/13/20231999 by Tito Golden RN Medication Review/Management: medications reviewed Problem: Hemodynamic Instability (Hemodialysis) Goal: Effective Tissue Perfusion Outcome: Ongoing, Progressing Problem: Infection (Hemodialysis) Goal: Absence of Infection Signs and Symptoms Outcome: Ongoing, Progressing Problem: Fall Injury Risk Goal: Absence of Fall and Fall-Related Injury Outcome: Ongoing, Progressing Intervention: Identify and Manage Contributors Recent Flowsheet Documentation Taken 08/14/2023399 by Tito Golden RN Medication Review/Management: medications reviewed Taken 08/14/2023199 by Tito Golden RN Medication Review/Management: medications reviewed Taken 08/13/20232199 by Tito Golden RN Medication Review/Management: medications reviewed Taken 08/13/20232105 by Tito Golden RN Medication Review/Management: medications reviewed Taken 08/13/20231999 by Tito Golden RN Medication Review/Management: medications reviewed Intervention: Promote Injury-Free Environment Recent Flowsheet Documentation Taken 08/14/2023 0400 by Tito Golden RN Safety Promotion/Fall Prevention: activity supervised assistive device/personal items within reach clutter free environment maintained toileting scheduled safety round/check completed room organization consistent nonskid shoes/slippers when out of bed Taken 08/14/2023 0200 by Tito Golden RN Safety Promotion/Fall Prevention: activity supervised assistive device/personal items within reach clutter free environment maintained toileting scheduled safety round/check completed room organization consistent nonskid shoes/slippers when out of bed Taken 08/14/2023 0000 by Tito Golden RN Safety Promotion/Fall Prevention: activity supervised assistive device/personal items within reach clutter free environment maintained toileting scheduled safety round/check completed room organization consistent nonskid shoes/slippers when out of bed Taken 08/13/2023 2200 by Tito Golden RN Safety Promotion/Fall Prevention: activity supervised assistive device/personal items within reach clutter free environment maintained toileting scheduled safety round/check completed room organization consistent nonskid shoes/slippers when out of bed Taken 08/13/2023 2106 by Tito Golden RN Safety Promotion/Fall Prevention: activity supervised assistive device/personal items within reach clutter free environment maintained toileting scheduled safety round/check completed room organization consistent nonskid shoes/slippers when out of bed Taken 08/13/20231999 by Tito Golden RN Safety Promotion/Fall Prevention: activity supervised assistive device/personal items within reach clutter free environment maintained toileting scheduled safety round/check completed room organization consistent nonskid shoes/slippers when out of bed Goal Outcome Evaluation: * Ivette Pérez RN - 08/13/2023 4:28 PM EST Problem: Adult Inpatient Plan of Care Goal: Absence of Hospital-Acquired Illness or Injury Outcome: Ongoing, Progressing Intervention: Identify and Manage Fall Risk Recent Flowsheet Documentation Taken 08/13/2023 1400 by Ivette Pérez RN Safety Promotion/Fall Prevention: activity supervised assistive device/personal items within reach clutter free environment maintained fall prevention program maintained nonskid shoes/slippers when out of bed safety round/check completed Taken 08/13/2023 1200 by Ivette Pérez RN Safety Promotion/Fall Prevention: activity supervised assistive device/personal items within reach clutter free environment maintained fall prevention program maintained nonskid shoes/slippers when out of bed safety round/check completed Taken 08/13/2023 0800 by Ivette Pérez RN Safety Promotion/Fall Prevention: activity supervised assistive device/personal items within reach clutter free environment maintained fall prevention program maintained nonskid shoes/slippers when out of bed safety round/check completed Intervention: Prevent Skin Injury Recent Flowsheet Documentation Taken 08/13/2023 1400 by Ivette Pérez RN Body Position: 30 degrees position changed independently supine weight shifting Taken 08/13/2023 1200 by Ivette Pérez RN Body Position: 30 degrees position changed independently supine weight shifting Taken 08/13/2023 0800 by Ivette Pérez RN Body Position: 30 degrees position changed independently supine weight shifting Skin Protection: adhesive use limited protective footwear used transparent dressing maintained tubing/devices free from skin contact Intervention: Prevent and Manage VTE (Venous Thromboembolism) Risk Recent Flowsheet Documentation Taken 08/13/2023 1400 by Ivette Pérez RN Activity Management: activity encouraged Taken 08/13/2023 1200 by Ivette Pérez RN Activity Management: activity encouraged Taken 08/13/2023 0800 by Ivette Pérez RN Activity Management: activity encouraged Range of Motion: active ROM (range of motion) encouraged Intervention: Prevent Infection Recent Flowsheet Documentation Taken 08/13/2023 1400 by Ivette Pérez RN Infection Prevention: environmental surveillance performed equipment surfaces disinfected hand hygiene promoted Taken 08/13/2023 1200 by Ivette Pérez RN Infection Prevention: environmental surveillance performed equipment surfaces disinfected hand hygiene promoted Taken 08/13/2023 0800 by Ivette Pérez RN Infection Prevention: environmental surveillance performed equipment surfaces disinfected Goal: Optimal Comfort and Wellbeing Outcome: Ongoing, Progressing Intervention: Provide Person-Centered Care Recent Flowsheet Documentation Taken 08/13/2023 1400 by Ivette Pérez RN Trust Relationship/Rapport: care explained choices provided emotional support provided empathic listening provided questions answered questions encouraged reassurance provided thoughts/feelings acknowledged Taken 08/13/2023 1200 by Ivette Pérez RN Trust Relationship/Rapport: care explained choices provided emotional support provided empathic listening provided questions answered questions encouraged reassurance provided thoughts/feelings acknowledged Taken 08/13/2023 1056 by Ivette Pérez RN Trust Relationship/Rapport: care explained choices provided emotional support provided empathic listening provided questions answered questions encouraged reassurance provided thoughts/feelings acknowledged Taken 08/13/2023 1026 by Ivette Pérez RN Trust Relationship/Rapport: care explained choices provided emotional support provided empathic listening provided questions answered questions encouraged reassurance provided thoughts/feelings acknowledged Taken 08/13/2023 0800 by Ivette Pérez RN Trust Relationship/Rapport: care explained choices provided emotional support provided empathic listening provided questions answered questions encouraged reassurance provided thoughts/feelings acknowledged Problem: Device-Related Complication Risk (Hemodialysis) Goal: Safe, Effective Therapy Delivery Outcome: Ongoing, Progressing Intervention: Optimize Device Care and Function Recent Flowsheet Documentation Taken 08/13/2023 1400 by Ivette Pérez RN Medication Review/Management: medications reviewed Taken 08/13/2023 1200 by Ivette Pérez RN Medication Review/Management: medications reviewed Taken 08/13/2023 0800 by Ivette Pérez RN Medication Review/Management: medications reviewed Problem: Fall Injury Risk Goal: Absence of Fall and Fall-Related Injury Outcome: Ongoing, Progressing Intervention: Identify and Manage Contributors Recent Flowsheet Documentation Taken 08/13/2023 1400 by Ivette Pérez RN Medication Review/Management: medications reviewed Taken 08/13/2023 1200 by Ivette Pérez RN Medication Review/Management: medications reviewed Taken 08/13/2023 0800 by Ivette Pérez RN Medication Review/Management: medications reviewed Intervention: Promote Injury-Free Environment Recent Flowsheet Documentation Taken 08/13/2023 1400 by Ivette Pérez RN Safety Promotion/Fall Prevention: activity supervised assistive device/personal items within reach clutter free environment maintained fall prevention program maintained nonskid shoes/slippers when out of bed safety round/check completed Taken 08/13/2023 1200 by Ivette Pérez RN Safety Promotion/Fall Prevention: activity supervised assistive device/personal items within reach clutter free environment maintained fall prevention program maintained nonskid shoes/slippers when out of bed safety round/check completed Taken 08/13/2023 0800 by Ivette Pérez RN Safety Promotion/Fall Prevention: activity supervised assistive device/personal items within reach clutter free environment maintained fall prevention program maintained nonskid shoes/slippers when out of bed safety round/check completed Goal Outcome Evaluation: * Carla Lazo, PT - 08/13/2023 9:19 AM EST Goal Outcome Evaluation: Plan of Care Reviewed With: patient Outcome Evaluation: Pt is indep with mobility. Skilled PT services are not indicated at this time. This was discussed and agreed upon with pt. Discharge PT. Anticipated Discharge Disposition (PT): home * Marina Wolf RN - 08/12/2023 11:46 PM EST Problem: Adult Inpatient Plan of Care Goal: Plan of Care Review Outcome: Ongoing, Progressing Flowsheets (Taken 08/12/2023 2346) Progress: improving Plan of Care Reviewed With: patient Goal: Patient-Specific Goal (Individualized) Outcome: Ongoing, Progressing Goal: Absence of Hospital-Acquired Illness or Injury Outcome: Ongoing, Progressing Intervention: Identify and Manage Fall Risk Description: Perform standard risk assessment on admission using a validated tool or comprehensive approach appropriate to the patient; reassess fall risk frequently, with change in status or transfer to another level of care. Communicate fall injury risk to interprofessional healthcare team. Determine need for increased observation, equipment and environmental modification, such as low bed, signage and supportive, nonskid footwear. Adjust safety measures to individual developmental age, stage and identified risk factors. Reinforce the importance of safety and physical activity with patient and family. Perform regular intentional rounding to assess need for position change, pain assessment and personal needs, including assistance with toileting. Recent Flowsheet Documentation Taken 08/12/20232199 by Marina Wolf RN Safety Promotion/Fall Prevention: nonskid shoes/slippers when out of bed safety round/check completed Taken 08/12/20231999 by Marina Wolf RN Safety Promotion/Fall Prevention: safety round/check completed Intervention: Prevent Skin Injury Description: Perform a screening for skin injury risk, such as pressure or moisture associated skindamage on admission and at regular intervals throughout hospital stay. Keep all areas of skin (especially folds) clean and dry. Maintain adequate skin hydration. Relieve and redistribute pressure and protect bony prominences; implement measures based on patient-specific risk factors. Match turning and repositioning schedule to clinical condition. Encourage weight shift frequently; assist with reposition if unable to complete independently. Float heels off bed; avoid pressure on the Achilles tendon. Keep skin free from extended contact with medical devices. Encourage functional activity and mobility, as early as tolerated. Use aids (e.g., slide boards, mechanical lift) during transfer. Recent Flowsheet Documentation Taken 08/12/20232199 by Marina Wolf RN Body Position: position changed independently Taken 08/12/20231999 by Marina Wolf RN Body Position: position changed independently Skin Protection: adhesive use limited Intervention: Prevent and Manage VTE (Venous Thromboembolism) Risk Description: Assess for VTE (venous thromboembolism) risk. Encourage and assist with early ambulation. Initiate and maintain compression or other therapy, as indicated, based on identified risk in accordance with organizational protocol and provider order. Encourage both active and passive leg exercises while in bed, if unable to ambulate. Recent Flowsheet Documentation Taken 08/12/20231999 by Marina Wolf RN Activity Management: up ad shelia Intervention: Prevent Infection Description: Maintain skin and mucous membrane integrity; promote hand, oral and pulmonary hygiene. Optimize fluid balance, nutrition, sleep and glycemic control to maximize infection resistance. Identify potential sources of infection early to prevent or mitigate progression of infection (e.g., wound, lines, devices). Evaluate ongoing need for invasive devices; remove promptly when no longer indicated. Recent Flowsheet Documentation Taken 08/12/20232199 by Marina Wolf RN Infection Prevention: environmental surveillance performed Taken 08/12/20231999 by Marina Wolf RN Infection Prevention: environmental surveillance performed Goal: Optimal Comfort and Wellbeing Outcome: Ongoing, Progressing Goal: Readiness for Transition of Care Outcome: Ongoing, Progressing Problem: Pain Acute Goal: Acceptable Pain Control and Functional Ability Outcome: Ongoing, Progressing Intervention: Prevent or Manage Pain Description: Evaluate pain level, effect of treatment and patient response at regular intervals. Minimize painful stimuli; coordinate care and adjust environment (e.g., light, noise, unnecessary movement); promote sleep/rest. Match pharmacologic analgesia to severity and type of pain mechanism (e.g., neuropathic, muscle, inflammatory); consider multimodal approach (e.g., nonopioid, opioid, adjuvant). Provide medication at regular intervals; titrate to patient response; premedicate for painful procedures. Manage breakthrough pain with additional doses; consider rotation or switching medication. Monitor for signs of substance tolerance (increased dose to reach desired effect, decreased effect with same dose). Manage medication-induced effects, such as constipation, nausea, pruritus, urinary retention, somnolence and dizziness. Provide multimodal interventions, such as as physical activity, therapeutic exercise, yoga, TENS (transcutaneous electrical nerve stimulation) and manual therapy. Train in functional activity modifications, such as body mechanics, posture, ergonomics, energy conservation and activity pacing. Consider addition of complementary or alternative therapy, such as acupuncture, hypnosis or therapeutic touch. Recent Flowsheet Documentation Taken 08/12/20231999 by Marina Wolf RN Sleep/Rest Enhancement: relaxation techniques promoted Medication Review/Management: medications reviewed Problem: Device-Related Complication Risk (Hemodialysis) Goal: Safe, Effective Therapy Delivery Outcome: Ongoing, Progressing Intervention: Optimize Device Care and Function Description: Maintain flow rate, anticoagulation parameters, pressure ranges and prescribed fluid balance with gradual adjustments to maintain hemodynamic stability and achieve therapy goals. Monitor laboratory results (e.g., electrolytes, glucose, albumin, coagulation studies, hemoglobin, hematocrit) and clinical status (e.g., cramping; nausea, vomiting, blood pressure fluctuations) for response to therapy; advocate for treatment or adju Assess vascular access site for patency, securement and position to meet flow demands. Assess perfusion distal to access site to ensure adequate tissue oxygenation. For arteriovenous fistula, assess presence of thrill to ensure presence of blood flow. Avoid blood pressure readings, lab draws, tight clothing or jewelry on the AV (arteriovenous) fistula extremity to prevent trauma. Maintain circuit monitoring (e.g., arterial, venous and transmembrane pressure; ultrafiltrate removal; dialysate flow, conductivity and temperature); address alarms promptly to decrease risk to patient and preserve circuit function. Evaluate circuit for disconnections, cracks, clotting, malfunction, leaks or rupture of hemofilter;intervene promptly to prevent risk to patient. Consider distal vascular access for antibiotic or vasoactive medication administration to prevent filtration of medication effect prior to being delivered systemically to the patient. Maintain infusion of anticoagulation; adjust to keep laboratory values within ordered range. Provide emergency equipment, such as clamps, replacement devices and resuscitative supplies, if malfunction, tubing rupture, clot formation or migration occur. Recent Flowsheet Documentation Taken 08/12/20231999 by Marina Wolf, tire stripper Review/Management: medications reviewed Problem: Hemodynamic Instability (Hemodialysis) Goal: Effective Tissue Perfusion Outcome: Ongoing, Progressing Problem: Infection (Hemodialysis) Goal: Absence of Infection Signs and Symptoms Outcome: Ongoing, Progressing Problem: Fall Injury Risk Goal: Absence of Fall and Fall-Related Injury Outcome: Ongoing, Progressing Intervention: Identify and Manage Contributors Description: Develop a fall prevention plan with the patient and caregiver/family. Provide reorientation, appropriate sensory stimulation and routines with changes in mental status to decrease risk of fall. Promote use of personal vision and auditory aids. Assess assistance level required for safe and effective self-care; provide support as needed, such as toileting, mobilization. For age 65 and older, implement timed toileting with assistance. Encourage physical activity, such as performance of mobility and self-care at highest level of patient ability, multicomponent exercise program and provision of appropriate assistive devices. If fall occurs, assess the severity of injury; implement fall injury protocol. Determine the cause and revise fall injury prevention plan. Regularly review medication contribution to fall risk; adjust medication administration times to minimize risk of falling. Consider risk related to polypharmacy and age. Balance adequate pain management with potential for oversedation. Recent Flowsheet Documentation Taken 08/12/20231999 by Marina Wolf RN Medication Review/Management: medications reviewed Intervention: Promote Injury-Free Environment Description: Provide a safe, barrier-free environment that encourages independent activity. Keep care area uncluttered and well-lighted. Determine need for increased observation or monitoring. Avoid use of devices that minimize mobility, such as restraints or indwelling urinary catheter. Recent Flowsheet Documentation Taken 08/12/2023 2200 by Marina Wolf RN Safety Promotion/Fall Prevention: nonskid shoes/slippers when out of bed safety round/check completed Taken 08/12/20231999 by Marina Wolf RN Safety Promotion/Fall Prevention: safety round/check completed Goal Outcome Evaluation: Plan of Care Reviewed With: patient Progress: improving * Ivette Pérez RN - 08/12/2023 5:31 PM EST Problem: Adult Inpatient Plan of Care Goal: Absence of Hospital-Acquired Illness or Injury Outcome: Ongoing, Progressing Intervention: Identify and Manage Fall Risk Recent Flowsheet Documentation Taken 08/12/2023 1600 by Ivette Pérez, RN Safety Promotion/Fall Prevention: activity supervised assistive device/personal items within reach clutter free environment maintained nonskid shoes/slippers when out of bed safety round/check completed Taken 08/12/2023 1400 by Ivette Pérez RN Safety Promotion/Fall Prevention: activity supervised assistive device/personal items within reach clutter free environment maintained fall prevention program maintained nonskid shoes/slippers when out of bed safety round/check completed Taken 08/12/2023 1155 by Ivette Pérez RN Safety Promotion/Fall Prevention: activity supervised assistive device/personal items within reach clutter free environment maintained fall prevention program maintained nonskid shoes/slippers when out of bed safety round/check completed Taken 08/12/2023 0700 by Ivette Pérez RN Safety Promotion/Fall Prevention: (for scheduled dialysis treatment) patient off unit Intervention: Prevent Skin Injury Recent Flowsheet Documentation Taken 08/12/2023 1600 by Ivette Pérez RN Body Position: 30 degrees position changed independently supine weight shifting Taken 08/12/2023 1400 by Ivette Pérez RN Body Position: left 30 degrees position changed independently weight shifting Taken 08/12/2023 1155 by Ivette Pérez RN Body Position: 30 degrees position changed independently supine weight shifting Skin Protection: adhesive use limited protective footwear used transparent dressing maintained tubing/devices free from skin contact Intervention: Prevent and Manage VTE (Venous Thromboembolism) Risk Recent Flowsheet Documentation Taken 08/12/2023 1600 by Ivette Pérez RN Activity Management: activity encouraged Taken 08/12/2023 1400 by Ivette Pérez RN Activity Management: activity encouraged Taken 08/12/2023 1155 by Ivette Pérez RN Activity Management: activity encouraged Range of Motion: active ROM (range of motion) encouraged Intervention: Prevent Infection Recent Flowsheet Documentation Taken 08/12/2023 1600 by Ivette Pérez RN Infection Prevention: environmental surveillance performed equipment surfaces disinfected hand hygiene promoted Taken 08/12/2023 1400 by Ivette Pérez RN Infection Prevention: environmental surveillance performed equipment surfaces disinfected hand hygiene promoted Taken 08/12/2023 1155 by Ivette Pérez RN Infection Prevention: environmental surveillance performed equipment surfaces disinfected hand hygiene promoted Goal: Optimal Comfort and Wellbeing Outcome: Ongoing, Progressing Intervention: Provide Person-Centered Care Recent Flowsheet Documentation Taken 08/12/2023 1600 by Ivette Pérez RN Trust Relationship/Rapport: care explained choices provided emotional support provided empathic listening provided questions answered questions encouraged reassurance provided thoughts/feelings acknowledged Taken 08/12/2023 1400 by Ivette Pérez RN Trust Relationship/Rapport: care explained choices provided emotional support provided empathic listening provided questions answered questions encouraged reassurance provided thoughts/feelings acknowledged Taken 08/12/2023 1330 by Ivette Pérez RN Trust Relationship/Rapport: care explained choices provided emotional support provided empathic listening provided questions answered questions encouraged reassurance provided thoughts/feelings acknowledged Taken 08/12/2023 1311 by Ivette Pérez RN Trust Relationship/Rapport: care explained choices provided emotional support provided empathic listening provided questions answered questions encouraged thoughts/feelings acknowledged reassurance provided Taken 08/12/2023 1241 by Ivette Pérez RN Trust Relationship/Rapport: care explained choices provided emotional support provided empathic listening provided questions answered questions encouraged reassurance provided thoughts/feelings acknowledged Taken 08/12/2023 1155 by Ivette Pérez RN Trust Relationship/Rapport: care explained choices provided emotional support provided empathic listening provided questions answered questions encouraged reassurance provided thoughts/feelings acknowledged Problem: Pain Acute Goal: Acceptable Pain Control and Functional Ability Outcome: Ongoing, Progressing Intervention: Prevent or Manage Pain Recent Flowsheet Documentation Taken 08/12/2023 1600 by Ivette Pérez RN Medication Review/Management: medications reviewed Taken 08/12/2023 1400 by Ivette Pérez RN Medication Review/Management: medications reviewed Taken 08/12/2023 1155 by Ivette Pérez RN Medication Review/Management: medications reviewed Intervention: Optimize Psychosocial Wellbeing Recent Flowsheet Documentation Taken 08/12/2023 1600 by Ivette Pérez RN Supportive Measures: active listening utilized relaxation techniques promoted verbalization of feelings encouraged Diversional Activities: television smartphone Spiritual Activities Assistance: affirmation provided Taken 08/12/2023 1400 by Ivette Pérez RN Supportive Measures: active listening utilized positive reinforcement provided verbalization of feelings encouraged Diversional Activities: television Spiritual Activities Assistance: affirmation provided Taken 08/12/2023 1330 by Ivette Pérez RN Diversional Activities: television Taken 08/12/2023 1311 by Ivette Pérez RN Diversional Activities: television Taken 08/12/2023 1241 by Ivette Pérez RN Supportive Measures: active listening utilized positive reinforcement provided verbalization of feelings encouraged Diversional Activities: television Spiritual Activities Assistance: affirmation provided Taken 08/12/2023 1155 by Ivette Pérez RN Supportive Measures: active listening utilized positive reinforcement provided verbalization of feelings encouraged Diversional Activities: television Spiritual Activities Assistance: affirmation provided Problem: Device-Related Complication Risk (Hemodialysis) Goal: Safe, Effective Therapy Delivery Outcome: Ongoing, Progressing Intervention: Optimize Device Care and Function Recent Flowsheet Documentation Taken 08/12/2023 1600 by Ivette Pérez tire stripper Review/Management: medications reviewed Taken 08/12/2023 1400 by Ivette Pérez tire stripper Review/Management: medications reviewed Taken 08/12/2023 1155 by Ivette Pérez RN Medication Review/Management: medications reviewed Problem: Infection (Hemodialysis) Goal: Absence of Infection Signs and Symptoms Outcome: Ongoing, Progressing Problem: Fall Injury Risk Goal: Absence of Fall and Fall-Related Injury Outcome: Ongoing, Progressing Intervention: Identify and Manage Contributors Recent Flowsheet Documentation Taken 08/12/2023 1600 by Ivette Pérez RN Medication Review/Management: medications reviewed Taken 08/12/2023 1400 by Ivette Pérez RN Medication Review/Management: medications reviewed Taken 08/12/2023 1155 by Ivette Pérez RN Medication Review/Management: medications reviewed Intervention: Promote Injury-Free Environment Recent Flowsheet Documentation Taken 08/12/2023 1600 by Ivette Pérez RN Safety Promotion/Fall Prevention: activity supervised assistive device/personal items within reach clutter free environment maintained nonskid shoes/slippers when out of bed safety round/check completed Taken 08/12/2023 1400 by Ivette Pérez RN Safety Promotion/Fall Prevention: activity supervised assistive device/personal items within reach clutter free environment maintained fall prevention program maintained nonskid shoes/slippers when out of bed safety round/check completed Taken 08/12/2023 1155 by Ivette Pérez RN Safety Promotion/Fall Prevention: activity supervised assistive device/personal items within reach clutter free environment maintained fall prevention program maintained nonskid shoes/slippers when out of bed safety round/check completed Taken 08/12/2023 0700 by Ivette Pérez RN Safety Promotion/Fall Prevention: (for scheduled dialysis treatment) patient off unit Goal Outcome Evaluation: Client was admitted 08/10/2023 with hyperkalemia,client is on dialysis 3 times a week, TTS, scheduled 3 times a week. Client had scheduled dialysis treatment this morning, tolerating tx well with no distressing symptoms noted. Client has a rt catheter in place, dressing, intact. Left access fistulanoted.Blood pressure within limits and no increase in temp noted, call hill within reach for assistance\, bed in low position and alarms on for clients safety, in preventing fall\ing and causing injury and harm to client. * Ivette Pérez RN - 08/12/2023 11:56 AM EST Client off the floor for scheduled dialysis treatment at 0715, returned back on the unit at 1145. Client alert and stable. * Anmol Polanco RN - 08/12/2023 8:15 AM EST iHd in progress * Maile Eng RN - 08/12/2023 5:23 AM EST Problem: Adult Inpatient Plan of Care Goal: Plan of Care Review Outcome: Ongoing, Progressing Goal: Patient-Specific Goal (Individualized) Outcome: Ongoing, Progressing Goal: Absence of Hospital-Acquired Illness or Injury Outcome: Ongoing, Progressing Intervention: Identify and Manage Fall Risk Recent Flowsheet Documentation Taken 08/12/2023 0400 by Maile Eng, RN Safety Promotion/Fall Prevention: safety round/check completed nonskid shoes/slippers when out of bed Taken 08/12/2023 0200 by Maile Eng, RN Safety Promotion/Fall Prevention: safety round/check completed nonskid shoes/slippers when out of bed Taken 08/12/2023 0000 by Maile Eng, RN Safety Promotion/Fall Prevention: safety round/check completed nonskid shoes/slippers when out of bed Taken 08/11/20232218 by Maile Eng RN Safety Promotion/Fall Prevention: safety round/check completed nonskid shoes/slippers when out of bed Taken 08/11/20232058 by Maile Eng RN Safety Promotion/Fall Prevention: assistive device/personal items within reach clutter free environment maintained fall prevention program maintained lighting adjusted nonskid shoes/slippers when out of bed room organization consistent safety round/check completed Intervention: Prevent Skin Injury Recent Flowsheet Documentation Taken 08/12/2023 0400 by Maile Eng RN Body Position: position changed independently Taken 08/12/2023 0200 by Maile Eng RN Body Position: position changed independently Taken 08/12/2023 0000 by Maile Eng RN Body Position: position changed independently Taken 08/11/20232218 by Maile Eng RN Body Position: position changed independently Taken 08/11/20232058 by Maile Eng RN Body Position: position changed independently Intervention: Prevent and Manage VTE (Venous Thromboembolism) Risk Recent Flowsheet Documentation Taken 08/12/2023 0400 by Maile Eng RN Activity Management: activity minimized Taken 08/12/2023 0200 by Maile Eng RN Activity Management: activity minimized Taken 08/12/2023 0000 by Maile Eng RN Activity Management: activity minimized Taken 08/11/20232218 by Maile Eng RN Activity Management: activity minimized Taken 08/11/20232058 by Maile Eng RN Activity Management: activity minimized Goal: Optimal Comfort and Wellbeing Outcome: Ongoing, Progressing Intervention: Monitor Pain and Promote Comfort Recent Flowsheet Documentation Taken 08/11/20232218 by Maile Eng watermelon inspector Interventions: see MAR Taken 08/11/20232058 by Maile Eng watermelon inspector Interventions: see MAR Intervention: Provide Person-Centered Care Recent Flowsheet Documentation Taken 08/11/20232218 by Maile Eng RN Trust Relationship/Rapport: care explained choices provided questions encouraged Taken 08/11/20232058 by Maile Eng RN Trust Relationship/Rapport: choices provided care explained questions answered questions encouraged Goal: Readiness for Transition of Care Outcome: Ongoing, Progressing Problem: Pain Acute Goal: Acceptable Pain Control and Functional Ability Outcome: Ongoing, Progressing Intervention: Develop Pain Management Plan Recent Flowsheet Documentation Taken 08/11/20232218 by Maile Eng RNwatermelon inspector Interventions: see MAR Taken 08/11/20232058 by Maile Eng RNwatermelon inspector Interventions: see MAR Problem: Device-Related Complication Risk (Hemodialysis) Goal: Safe, Effective Therapy Delivery Outcome: Ongoing, Progressing Problem: Hemodynamic Instability (Hemodialysis) Goal: Effective Tissue Perfusion Outcome: Ongoing, Progressing Problem: Infection (Hemodialysis) Goal: Absence of Infection Signs and Symptoms Outcome: Ongoing, Progressing Goal Outcome Evaluation: * Margarita Menendez RN - 08/11/2023 7:20 PM EST Goal Outcome Evaluation:HD completed, goal reached. Pt tolerated well. Blood returned/re infused. Called report to JANA Brock Problem: Device-Related Complication Risk (Hemodialysis) Goal: Safe, Effective Therapy Delivery Outcome: Ongoing, Progressing Problem: Hemodynamic Instability (Hemodialysis) Goal: Effective Tissue Perfusion Outcome: Ongoing, Progressing Problem: Infection (Hemodialysis) Goal: Absence of Infection Signs and Symptoms Outcome: Ongoing, Progressing * Anmol Polanco RN - 08/11/2023 5:18 PM EST iHd initiated with tunneled dialysis catheter, patient stable so far * Brandy Feliz RN - 08/11/2023 4:15 PM EST Image guided LUE fistulagram unsuccessful. Image guided LEJ tunneled dialysis placed per Dr. Castro. Fentanyl 50 mcg & Versed 1 mg given for a sedation time of 166 minutes. Dsg to sites per protocol. Pt tolerated well. + thrill to LUE fistula. Report called to jana Brock on 5F & dialysis. * Brandy Feliz RN - 08/11/2023 1:20 PM EST Pt is hypertensive, made aware. No new orders at this time. documented in this encounter ED Notes * Mandi Betancourt RN - 08/11/2023 9:23 AM EST Aiden Stauffer Jr. Nursing Report ED to Floor: Mental status: A&O x4 Ambulatory status: able to ambulate Oxygen Therapy: RA NC as needed Cardiac Rhythm: pt off the floor at this time Admitted from: ED Safety Concerns: fall risk Social Issues: none ED Room #: 08 ED Nurse Phone Extension - [phone] or may call [phone]. HPI: Chief Complaint Patient presents with Vascular Access Problem Past Medical History: Past Medical History: Diagnosis [...] OR; Service: Neurosurgery; Laterality: N/A; Admitting Doctor: Kaila Jhaveri MD Consulting Provider(s): Consults No orders found for last 30 day(s). Admitting Diagnosis: The primary encounter diagnosis was Cellulitis of left forearm. Diagnoses of Complication of AV dialysis fistula, initial encounter, End-stage renal disease on hemodialysis, Left forearm pain, and Hyperkalemia were also pertinent to this visit. Most Recent Vitals: Vitals: 08/11/23 0619 08/11/23 0624 08/11/23 0759 08/11/23 0812 BP: (!) 196/89 (!) 183/97 BP Location: Patient Position: Pulse: 79 77 90 97 Resp: Temp: TempSrc: SpO2: 97% 98% 97% Weight: Height: Active LDAs/IV Access: Lines, Drains & Airways Active LDAs Name Placement date Placement time Site Days Peripheral IV 08/10/232143 Anterior;Right Forearm 08/10/232143 Forearm less than 1 Labs (abnormal labs have a star): Labs Reviewed COMPREHENSIVE METABOLIC PANEL - Abnormal; Notable for the following components: Result Value Glucose 130 (*) BUN 80 (*) Creatinine 12.29 (*) Potassium 6.8 (*) CO2 19.0 (*) Alkaline Phosphatase 197 (*) BUN/Creatinine Ratio 6.5 (*) Anion Gap 16.0 (*) eGFR 4.5 (*) All other components within normal limits Narrative: GFR Normal >60 Chronic Kidney Disease <60 Kidney Failure <15 CBC WITH AUTO DIFFERENTIAL - Abnormal; Notable for the following components: MCV 103.1 (*) MCH 33.1 (*) RDW-SD 55.2 (*) Immature Grans % 1.8 (*) Eosinophils, Absolute 0.42 (*) Immature Grans, Absolute 0.17 (*) All other components within normal limits BASIC METABOLIC PANEL - Abnormal; Notable for the following components: Glucose 104 (*) BUN 83 (*) Creatinine 12.28 (*) Potassium 5.7 (*) CO2 18.0 (*) BUN/Creatinine Ratio 6.8 (*) Anion Gap 17.0 (*) eGFR 4.5 (*) All other components within normal limits Narrative: GFR Normal >60 Chronic Kidney Disease <60 Kidney Failure <15 PHOSPHORUS - Abnormal; Notable for the following components: Phosphorus 4.7 (*) All other components within normal limits PROCALCITONIN - Abnormal; Notable for the following components: Procalcitonin 0.33 (*) All other components within normal limits [...] Day 4 values are available. Refer to [email or web address] Change in PCT <=80% A decrease of [...] diagnosed with severe sepsis or septic shock. MRSA SCREEN, PCR - Normal Narrative: The negative predictive value of this diagnostic test is high and should only be used to consider de-escalating anti-MRSA therapy. A positive result may indicate colonization with MRSA and must be correlated clinically. MRSA Negative LACTIC ACID, PLASMA - Normal POCT GLUCOSE FINGERSTICK - Normal POCT GLUCOSE FINGERSTICK - Normal POCT GLUCOSE FINGERSTICK - Normal BLOOD CULTURE BLOOD CULTURE RAINBOW DRAW Narrative: The following orders were created for panel order [place] Draw. Procedure Abnormality Status --------- ------ Green Top (Gel)[[id number]] Final result Lavender Top[[id number]] Final result Gold Top - SST[[id number]] Final result Vazquez Top[[id number]] Final result Light Blue Top[[id number]] Final result Please view results for these tests on the individual orders. POCT GLUCOSE FINGERSTICK POCT GLUCOSE FINGERSTICK POCT GLUCOSE FINGERSTICK POCT GLUCOSE FINGERSTICK GREEN TOP LAVENDER TOP GOLD TOP - SST VAZQUEZ TOP LIGHT BLUE TOP Meds Given in ED: Medications sodium chloride 0.9 % flush 10 mL (10 mL Intravenous Given 08/11/23 022) NIFEdipine XL (PROCARDIA XL) 24 hr tablet 90 mg (90 mg Oral Given 08/11/2312) mycophenolate (CELLCEPT) capsule 250 mg (250 mg Oral Given 08/11/23809) cycloSPORINE modified (NEORAL) capsule 100 mg (100 mg Oral Given 08/11/23809) carBAMazepine (TEGretol) tablet 200 mg (200 mg Oral Not Given 08/11/2315) HYDROmorphone (DILAUDID) injection 0.5 mg (0.5 mg Intravenous Given 08/11/23822) HYDROcodone-acetaminophen (NORCO) 7.5-325 MG per tablet 1 tablet (1 tablet Oral Given 08/11/23 0822) vancomycin 2750 mg/500 mL 0.9% NS IVPB ([facility]) (0 mg Intravenous Stopped 08/11/23227) piperacillin-tazobactam (ZOSYN) 4.5 g in iso-osmotic dextrose 100 mL IVPB (premix) (0 g IntravenousStopped 08/10/232245) HYDROcodone-acetaminophen (NORCO) 5-325 MG per tablet 1 tablet (1 tablet Oral Given 08/10/23 2318) ondansetron ODT (ZOFRAN-ODT) disintegrating tablet 4 mg (4 mg Oral Given 08/10/232319) HYDROcodone-acetaminophen (NORCO) 5-325 MG per tablet 1 tablet (1 tablet Oral Given 08/11/23 013) sodium zirconium cyclosilicate (LOKELMA) pack 10 g (10 g Oral Given 08/11/23223) calcium gluconate 1000 Mg/50ml 0.675% NaCl IV SOLN (0 mg Intravenous Stopped 08/11/23331) sodium bicarbonate injection 8.4% 50 mEq (50 mEq Intravenous Given 08/11/23218) insulin regular (humuLIN R,novoLIN R) injection 5 Units (5 Units Intravenous Given 08/11/23220) dextrose (D50W) (25 g/50 mL) IV injection 25 g (25 g Intravenous Given 08/11/23217) piperacillin-tazobactam (ZOSYN) 3.375 g in iso-osmotic dextrose 50 ml (premix) (0 g Intravenous Stopped 08/11/23744) fentaNYL citrate (PF) (SUBLIMAZE) injection 50 mcg (50 mcg Intravenous Given 08/11/23702) hydrALAZINE (APRESOLINE) tablet 50 mg (50 mg Oral Given 08/11/23700) * Danya Garcia MD - 08/10/2023 9:22 PM EST Subjective History of Present Illness 48-year-old male presents to the emergency department with concerns about redness, pain, and swelling to the distal aspect of his left forearm AV fistula dialysis access which started today and has worsened throughout the day. He states he has been on dialysis for approximately 4 years, and his kidneys failed due to antirejection meds that were administered for liver transplant about 5 years ago.He is dialyzed at home by hemodialysis on Monday, Monday, , and Monday. He states that hisshunt was placed by Dr. Kaur who has moved out of state. He denies any recent fever. His last dialysis was 08/08, and he states he got high pressure reading near the area of redness and had to turn the needle to get it to perform dialysis. He does not make any urine. 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 Sky. He states the pain radiates from his left forearm up his left arm. Pain is worse with movement of his left upper extremity. He is right-hand dominant. He had a procedure of the site by interventional radiology performed earlier this year by interventional radiology at this facility. He states heis under his dry weight. Review of Systems Constitutional: Negative for diaphoresis and fever. Eyes: Negative for photophobia and discharge. Respiratory: Negative for shortness of breath and stridor. Musculoskeletal: Positive for myalgias. Neurological: Negative for facial asymmetry and speech difficulty. Past Medical History: Diagnosis Date Diabetes mellitus Dialysis patient Hemorrhage THROAT VARICIES Kidney failure Liver transplanted No Known Allergies Past Surgical History: Procedure Laterality Date ARTERIOVENOUS FISTULA Left 2019 CARDIAC CATHETERIZATION times 2022 CHOLECYSTECTOMY ENDOSCOPY N/A 05/04/2020 Procedure: ESOPHAGOGASTRODUODENOSCOPY; Surgeon: Dewey Betancourt MD; Location: [facility]; Service: Gastroenterology; Laterality: N/A; LUMBAR LAMINECTOMY DISCECTOMY DECOMPRESSION N/A 04/29/2020 Procedure: LUMBAR LAMINECTOMY DISCECTOMY DECOMPRESSION POSTERIOR L4-5; Surgeon: Yinka Garnica MD; Location: [facility]; Service: Neurosurgery; Laterality: N/A; Liver transplant History reviewed. No pertinent family history. Social History Socioeconomic History Marital status: Tobacco Use Smoking status: Never Smokeless tobacco: Never Substance and Sexual Activity Alcohol use: Never Drug use: Never Objective Physical Exam Vitals and nursing note reviewed. Constitutional: General: He is not in acute distress. Comments: BMI 45 Eyes: General: No scleral icterus. Comments: No photophobia or nystagmus. Cardiovascular: Rate and Rhythm: Normal rate and regular rhythm. Comments: S1, S2, distant heart sounds, no murmur appreciated. Pulmonary: Effort: Pulmonary effort is normal. No respiratory distress. Breath sounds: Normal breath sounds. No stridor. No wheezing or rales. Musculoskeletal: Comments: No significant peripheral edema. Left upper extremity distal neurovascular intact. Tenderness to palpation to distal aspect of left forearm AV fistula. Erythema and warmth to distal aspect of left forearm AV fistula. No fluctuance. Palpable thrill and audible bruit to the area. Streaking erythema noted to the ulnar aspect extending from the area of the a V fistula in the left forearm. Skin: General: Skin is warm and dry. Coloration: Skin is not jaundiced. Comments: Erythema, tenderness, no fluctuance to distal aspect of left forearm AV fistula, with streaking erythema to the ulnar aspect of the distal left forearm. Neurological: Mental Status: He is alert. Comments: Normal speech, no dysarthria. No facial droop. Procedures ED Course ED Course as of 08/11/23 0734 MonAug 11, 2023 0024 Awaiting electrolyte results /CMP [LD] 0119 Still awaiting CMP result. [LD] 0120 Per clinical lab specialist said Cmp hemolyzed three times, was redrawn 5 minutes ago by roll slicing machine tender per RN. [LD] 0650 Dr. Dumont contacted regarding admission. [LD] 0715 Dr. Jhaveri hospitalist aware. Dr. Blankenship senior integration developer for [facility], paged, on for . [LD] 0786 Case discussed w merchant [employer] utility worker Dr. Edwards who agrees to see the patient in consultation and arrange for hemodialysis. [LD] ED Course User Index [LD] Danya Garcia MD Medical Decision Making Differential diagnosis includes cellulitis of the left forearm AV fistula, less likely thrombosis of the left forearm AV fistula, volume overload, hyperkalemia, less likely sepsis, and others. Problems Addressed: Cellulitis of left forearm: complicated acute illness or injury Complication of AV dialysis fistula, initial encounter: complicated acute illness or injury End-stage renal disease on hemodialysis: complicated acute illness or injury Hyperkalemia: complicated acute illness or injury Left forearm pain: complicated acute illness or injury Amount and/or Complexity of Data Reviewed External Data Reviewed: notes. Details: Interventional radiology notes from procedure April 2023. Labs: ordered. Decision-making details documented in ED Course. Radiology: ordered. Decision-making details documented in ED Course. ECG/medicine tests: ordered and independent interpretation performed. Decision- making details documented in ED Course. Details: EKG at 2030 shows sinus rhythm with first-degree AV block with sinus arrhythmia at a rate of 98 bpm, no acute ischemic changes. Discussion of management or test interpretation with external provider(s): Hospitalist Dr. Dumont contacted at approximately 0200. Risk OTC drugs. Prescription drug management. Decision regarding hospitalization. Recent Results (from the past 24 hour(s)) ECG 12 Lead Chest Pain Collection Time: 08/10/23 8:31 PM Result Value Ref Range QT Interval 356 ms QTC Interval 454 ms CBC Auto Differential Collection Time: 08/10/23 9:30 PM Specimen: Blood Result Value Ref Range WBC 9.22 3.40 - 10.80 10*3/mm3 RBC 4.20 4.14 - 5.80 10*6/mm3 Hemoglobin 13.9 13.0 - 17.7 g/dL Hematocrit 43.3 37.5 - 51.0 % MCV 103.1 (H) 79.0 - 97.0 fL MCH 33.1 (H) 26.6 - 33.0 pg MCHC 32.1 31.5 - 35.7 g/dL RDW 14.7 12.3 - 15.4 % RDW-SD 55.2 (H) 37.0 - 54.0 fl MPV 9.5 6.0 - 12.0 fL Platelets 278 140 - 450 10*3/mm3 Neutrophil % 65.9 42.7 - 76.0 % Lymphocyte % 21.4 19.6 - 45.3 % Monocyte % 6.0 5.0 - 12.0 % Eosinophil % 4.6 0.3 - 6.2 % Basophil % 0.3 0.0 - 1.5 % Immature Grans % 1.8 (H) 0.0 - 0.5 % Neutrophils, Absolute 6.08 1.70 - 7.00 10*3/mm3 Lymphocytes, Absolute 1.97 0.70 - 3.10 10*3/mm3 Monocytes, Absolute 0.55 0.10 - 0.90 10*3/mm3 Eosinophils, Absolute 0.42 (H) 0.00 - 0.40 10*3/mm3 Basophils, Absolute 0.03 0.00 - 0.20 10*3/mm3 Immature Grans, Absolute 0.17 (H) 0.00 - 0.05 10*3/mm3 nRBC 0.0 0.0 - 0.2 /100 WBC Green Top (Gel) Collection Time: 08/10/23 9:30 PM Result Value Ref Range Extra Tube Hold for add-ons. Lavender Top Collection Time: 08/10/23 9:30 PM Result Value Ref Range Extra Tube hold for add-on Gold Top - SST Collection Time: 08/10/23 9:30 PM Result Value Ref Range Extra Tube Hold for add-ons. Vazquez Top Collection Time: 08/10/23 9:30 PM Result Value Ref Range Extra Tube Hold for add-ons. Light Blue Top Collection Time: 08/10/23 9:30 PM Result Value Ref Range Extra Tube Hold for add-ons. Lactic Acid, Plasma Collection Time: 08/10/23 9:30 PM Specimen: Blood Result Value Ref Range Lactate 1.0 0.5 - 2.0 mmol/L Comprehensive Metabolic Panel Collection Time: 08/11/23 12:48 AM Specimen: Blood Result Value Ref Range Glucose 130 (H) 65 - 99 mg/dL BUN 80 (H) 6 - 20 mg/dL Creatinine 12.29 (H) 0.76 - 1.27 mg/dL Sodium 136 136 - 145 mmol/L Potassium 6.8 (C) 3.5 - 5.2 mmol/L Chloride 101 98 - 107 mmol/L CO2 19.0 (L) 22.0 - 29.0 mmol/L Calcium 8.6 8.6 - 10.5 mg/dL Total Protein 7.0 6.0 - 8.5 g/dL Albumin 4.1 3.5 - 5.2 g/dL ALT (SGPT) <5 1 - 41 U/L AST (SGOT) <5 1 - 40 U/L Alkaline Phosphatase 197 (H) 39 - 117 U/L Total Bilirubin 0.3 0.0 - 1.2 mg/dL Globulin 2.9 gm/dL A/G Ratio 1.4 g/dL BUN/Creatinine Ratio 6.5 (L) 7.0 - 25.0 Anion Gap 16.0 (H) 5.0 - 15.0 mmol/L eGFR 4.5 (L) >60.0 mL/min/1.73 POC Glucose Once Collection Time: 08/11/23 2:17 AM Specimen: Blood Result Value Ref Range Glucose 89 70 - 130 mg/dL POC Glucose Once Collection Time: 08/11/23 2:51 AM Specimen: Blood Result Value Ref Range Glucose 123 70 - 130 mg/dL Basic Metabolic Panel Collection Time: 08/11/23 4:51 AM Specimen: Blood Result Value Ref Range Glucose 104 (H) 65 - 99 mg/dL BUN 83 (H) 6 - 20 mg/dL Creatinine 12.28 (H) 0.76 - 1.27 mg/dL Sodium 137 136 - 145 mmol/L Potassium 5.7 (H) 3.5 - 5.2 mmol/L Chloride 102 98 - 107 mmol/L CO2 18.0 (L) 22.0 - 29.0 mmol/L Calcium 8.7 8.6 - 10.5 mg/dL BUN/Creatinine Ratio 6.8 (L) 7.0 - 25.0 Anion Gap 17.0 (H) 5.0 - 15.0 mmol/L eGFR 4.5 (L) >60.0 mL/min/1.73 Phosphorus Collection Time: 08/11/23 4:51 AM Specimen: Blood Result Value Ref Range Phosphorus 4.7 (H) 2.5 - 4.5 mg/dL POC Glucose Once Collection Time: 08/11/23 5:07 AM Specimen: Blood Result Value Ref Range Glucose 110 70 - 130 mg/dL Note: In addition to lab results from this visit, the labs listed above may include labs taken at another facility or during a different encounter within the last 24 hours. Please correlate lab timeswith ED admission and discharge times for further clarification of the services performed during this visit. XR Chest 1 View Final Result Impression: No evidence of acute cardiopulmonary disease. Electronically Signed: Dmitry Galeano MD 08/10/2023 10:00 PM EST Workstation ID: [id number] Vitals: 08/11/23 0609 08/11/23 0614 08/11/23 0619 08/11/23623 BP: BP Location: Patient Position: Pulse: 93 98 79 77 Resp: Temp: TempSrc: SpO2: 96% 91% 97% 98% Weight: Height: Medications sodium chloride 0.9 % flush 10 mL (10 mL Intravenous Given 08/11/23223) NIFEdipine XL (PROCARDIA XL) 24 hr tablet 90 mg (has no administration in time range) mycophenolate (CELLCEPT) capsule 250 mg (has no administration in time range) cycloSPORINE modified (NEORAL) capsule 100 mg (has no administration in time range) carBAMazepine (TEGretol) tablet 200 mg (has no administration in time range) vancomycin 2750 mg/500 mL 0.9% NS IVPB ([facility]) (0 mg Intravenous Stopped 08/11/23227) piperacillin-tazobactam (ZOSYN) 4.5 g in iso-osmotic dextrose 100 mL IVPB (premix) (0 g IntravenousStopped 08/10/232245) HYDROcodone-acetaminophen (NORCO) 5-325 MG per tablet 1 tablet (1 tablet Oral Given 08/10/232317) ondansetron ODT (ZOFRAN-ODT) disintegrating tablet 4 mg (4 mg Oral Given 08/10/232319) HYDROcodone-acetaminophen (NORCO) 5-325 MG per tablet 1 tablet (1 tablet Oral Given 08/11/236) sodium zirconium cyclosilicate (LOKELMA) pack 10 g (10 g Oral Given 08/11/23223) calcium gluconate 1000 Mg/50ml 0.675% NaCl IV SOLN (0 mg Intravenous Stopped 08/11/23331) sodium bicarbonate injection 8.4% 50 mEq (50 mEq Intravenous Given 08/11/23218) insulin regular (humuLIN R,novoLIN R) injection 5 Units (5 Units Intravenous Given 08/11/23220) dextrose (D50W) (25 g/50 mL) IV injection 25 g (25 g Intravenous Given 08/11/23217) piperacillin-tazobactam (ZOSYN) 3.375 g in iso-osmotic dextrose 50 ml (premix) (3.375 g IntravenousNew Bag 08/11/23702) fentaNYL citrate (PF) (SUBLIMAZE) injection 50 mcg (50 mcg Intravenous Given 08/11/23702) hydrALAZINE (APRESOLINE) tablet 50 mg (50 mg Oral Given 08/11/23700) ECG/EMG Results (last 24 hours) Procedure Component Value Units Date/Time ECG 12 Lead Chest Pain [[id number]] Collected: 08/10/232030 Updated: 08/10/232031 QT Interval 356 ms QTC Interval 454 ms Narrative: Test Reason : Chest Pain Blood Pressure : */* mmHG Vent. Rate : 98 BPM Atrial Rate : 98 BPM P-R Int : 312 ms QRS Dur : 110 ms QT Int : 356 ms P-R-T Axes : 48 52 79 degrees QTc Int : 454 ms Sinus rhythm with marked sinus arrhythmia with 1st degree AV block Otherwise normal ECG When compared with ECG of 03-MAY-2020 05:07, LA interval has increased Minimal criteria for Inferior infarct are no longer present Nonspecific T wave abnormality no longer evident in Inferior leads Nonspecific T wave abnormality no longer evident in Anterior leads Referred By: Confirmed By: ECG 12 Lead Chest Pain Preliminary Result Test Reason : Chest Pain Blood Pressure : */* mmHG Vent. Rate : 98 BPM Atrial Rate : 98 BPM P-R Int : 312 ms QRS Dur : 110 ms QT Int : 356 ms P-R-T Axes : 48 52 79 degrees QTc Int : 454 ms Sinus rhythm with marked sinus arrhythmia with 1st degree AV block Otherwise normal ECG When compared with ECG of 03-MAY-2020 05:07, LA interval has increased Minimal criteria for Inferior infarct are no longer present Nonspecific T wave abnormality no longer evident in Inferior leads Nonspecific T wave abnormality no longer evident in Anterior leads Referred By: Confirmed By: Final diagnoses: Cellulitis of left forearm Complication of AV dialysis fistula, initial encounter End-stage renal disease on hemodialysis Left forearm pain Hyperkalemia ED Disposition ED Disposition ED Disposition Decision to Admit Condition -- Comment Level of Care: Telemetry [5] Diagnosis: Hyperkalemia [[id number]] Admitting Physician: JOSE DUMONT [[id number]] Attending Physician: JSOE DUMONT [[id number]] Bed Request Comments: tele No follow-up provider specified. Medication List No changes were made to your prescriptions during this visit. Danya Garcia MD 08/11/23 0209 Danya Garcia MD 08/11/23 0210 Danya Garcia MD 08/11/23 0650 Danya Garcia MD 08/11/23 0715 Danya Garcia MD 08/11/23 0729 Danya Garcia MD 08/11/23 0734 documented in this encounter Plan of Treatment Not on file documented as of this encounter Procedures Procedure Name Priority Date/Time Associated Diagnosis Comments POCT GLUCOSE FINGERSTICK Routine 08/14/2023 10:44 AM EST POCT GLUCOSE FINGERSTICK Routine 08/14/2023 6:54 AM EST BASIC METABOLIC PANEL Routine 08/14/2023 6:32 AM EST CBC WITH AUTO DIFFERENTIAL Routine 08/14/2023 6:31 AM EST CBC AND DIFFERENTIAL Routine 08/14/2023 6:31 AM EST POCT GLUCOSE FINGERSTICK Routine 08/13/2023 8:25 PM EST POCT GLUCOSE FINGERSTICK Routine 08/13/2023 3:51 PM EST POCT GLUCOSE FINGERSTICK Routine 08/13/2023 11:14 AM EST POCT GLUCOSE FINGERSTICK Routine 08/13/2023 6:51 AM EST CBC WITH AUTO DIFFERENTIAL Routine 08/13/2023 5:50 AM EST CBC AND DIFFERENTIAL Routine 08/13/2023 5:50 AM EST PHOSPHORUS Add-On 08/13/2023 5:50 AM EST BASIC METABOLIC PANEL Routine 08/13/2023 5:50 AM EST POCT GLUCOSE FINGERSTICK Routine 08/12/2023 7:30 PM EST POCT GLUCOSE FINGERSTICK Routine 08/12/2023 3:24 PM EST POCT GLUCOSE FINGERSTICK Routine 08/12/2023 11:56 AM EST CBC (NO DIFF) Routine 08/12/2023 5:59 AM EST TSH Routine 08/12/2023 5:59 AM EST HEMOGLOBIN A1C Routine 08/12/2023 5:59 AM EST VANCOMYCIN, RANDOM Timed 08/12/2023 5: 59 AM EST LIPID PANEL Routine 08/12/2023 5:59 AM EST BASIC METABOLIC PANEL Routine 08/12/2023 5:59 AM EST POCT GLUCOSE FINGERSTICK Routine 08/11/2023 8:36 PM EST HEMODIALYSIS INPATIENT Routine 8:12 PM EST HC FLUORO CENT LAURIE ACC DEV ADD/REP/REM Routine 08/11/2023 3:41 PM EST IR ANGIOPLASTY AV FIST GRAFT ARTERIAL Routine 08/11/2023 3:23 PM EST PROTIME-INR STAT 08/11/2023 11:40 AM EST DUPLEX HEMODIALYSIS ACCESS CAR Routine 08/11/2023 11:18 AM EST HEMODIALYSIS INPATIENT Routine 8:00 AM EST POCT GLUCOSE FINGERSTICK STAT 08/11/2023 5:07 AM EST PROCALCITONIN STAT 08/11/2023 4:51 AM EST PHOSPHORUS STAT 08/11/2023 4:51 AM EST BASIC METABOLIC PANEL STAT 08/11/2023 4:51 AM EST POCT GLUCOSE FINGERSTICK STAT 08/11/2023 2:51 AM EST POCT GLUCOSE FINGERSTICK STAT 08/11/2023 2:17 AM EST COMPREHENSIVE METABOLIC PANEL STAT 08/11/2023 12:48 AM EST MRSA DNA PROBE STAT 08/10/2023 11:34 PM EST XR CHEST 1 VW STAT 08/10/2023 9:56 PM EST BLOOD CULTURE STAT 08/10/2023 9:50 PM EST VAZQUEZ TOP STAT 08/10/2023 9:30 PM EST GOLD TOP - SST STAT 08/10/2023 9:30 PM EST DK GREEN TOP STAT 08/10/2023 9:30 PM EST CBC WITH AUTO DIFFERENTIAL STAT 08/10/2023 9:30 PM EST LAVENDER TOP STAT 08/10/2023 9:30 PM EST LIGHT BLUE TOP STAT 08/10/2023 9:30 PM EST RAINBOW DRAW STAT 08/10/2023 9:30 PM EST BLOOD CULTURE STAT 08/10/2023 9:30 PM EST LACTIC ACID, PLASMA STAT 08/10/2023 9 :30 PM EST ECG 12-LEAD STAT 08/10/2023 8:31 PM EST documented in this encounter Results * (ABNORMAL) POC Glucose Once (08/14/2023 10:44 AM EST) Glucose 158(H) 70 - 130 mg/dL 08/14/2023 10:47 AM EST [facility] Blood 08/14/2023 10:4 4 AM EST 08/14/2023 10:47 AM EST Shiloh Maradiaga DO POINT OF CARE TEST ORDERABL ES Final Result Performing Organization Address City/[facility]/ZIP Co de Phone Number [facility]
[address] [place] [address], * (ABNORMAL) POC Glucose Once (08/14/2023 6:54 AM EST) Glucose 172(H) 70 - 130 mg/dL 08/14/2023 6:55 AM EST [facility] Blood 08/14/2023 6:54 AM EST 08/14/2023 6:55 AM EST Shiloh Maradiaga DO POINT OF CARE TEST ORDERABL ES Final Result Performing Organization Address City/[facility]/ZIP Co de Phone Number [facility]
[address] [place] [address], * (ABNORMAL) Basic Metabolic Panel (08/14/2023 6:32 AM EST) Glucose 141(H) 65 - 99 mg/dL 08/14/2023 7:24 AM EST [facility] BUN 58(H) 6 - 20 mg/dL 08/14/2023 7:24 AM EST [facility] Creatinine 11.02(H) 0.76 - 1.27 mg/dL 08/14/2023 7:24 AM EST [facility] Sodium 134(L) 136 - 145 mmol/L 08/14/2023 7:24 AM EST [facility] Potassium 5.1 3.5 - 5.2 mmol/L 08/14/2023 7:24 AM EST [facility] Chloride 96(L) 98 - 107 mmol/L 08/14/2023 7:24 AM EST [facility] CO2 18.0(L) 22.0 - 29.0 mmol/L 08/14/2023 7:24 AM EST [facility] Calcium 8.6 8.6 - 10.5 mg/dL 08/14/2023 7:24 AM EST [facility] BUN/Creatinine Ratio 5.3(L) 7.0 - 25.0 08/14/2023 7:24 AM EST [facility] Anion Gap 20.0(H) 5.0 - 15.0 mmol/L 08/14/2023 7:24 AM EST [facility] eGFR 5.2(L) >60.0 mL/min/1.7 3 08/14/2023 7:24 AM [facility] Comment:<15 Indicative of ki dney failure Blood Venipuncture / Unknown 08/14/2023 6:32 AM EST 08/14/2023 6:32 AM EST Narrative [facility] - 08/14/2023 7:24 AM EST GFR Normal >60 Chronic Kidney Disease <60 Kidney Failure <15 us Maile Jasso DISABILITY LIAISON OFFICER LAB BLOOD ORDERABLES Final Resu lt [facility]
[address] [place] [address], * (ABNORMAL) CBC Auto Differential (08/14/2023 6:31 AM EST) WBC 5.20 3.40 - 10.80 10*3/mm3 08/14/2023 6:53 AM EST [facility] RBC 3.30(L) 4.14 - 5.80 10*6/mm3 08/14/2023 6:53 AM [facility] Hemoglobin 10.9(L) 13.0 - 17.7 g/dL 08/14/2023 6:53 AM [facility] Hematocrit 34.0(L) 37.5 - 51.0 % 08/14/2023 6:53 AM [facility] MCV 103.0(H) 79.0 - 97.0 fL 08/14/2023 6:53 AM [facility] MCH 33.0 26.6 - 33.0 pg 08/14/2023 6:53 AM [facility] MCHC 32.1 31.5 - 35.7 g/dL 08/14/2023 6:53 AM [facility] RDW 14.1 12.3 - 15.4 % 08/14/2023 6:53 AM [facility] RDW-SD 53.1 37.0 - 54.0 fl 08/14/2023 6:53 AM [facility] MPV 9.9 6.0 - 12.0 fL 08/14/2023 6:53 AM [facility] Platelets 190 140 - 450 10*3/mm3 08/14/2023 6:53 AM [facility] Neutrophil % 54.9 42.7 - 76.0 % 08/14/2023 6:53 AM [facility] Lymphocyte % 26.0 19.6 - 45.3 % 08/14/2023 6:53 AM [facility] Monocyte % 10.8 5.0 - 12.0 % 08/14/2023 6:53 AM [facility] Eosinophil % 6.0 0.3 - 6.2 % 08/14/2023 6:53 AM [facility] Basophil % 0.4 0.0 - 1.5 % 08/14/2023 6:53 AM [facility] Immature Grans % 1.9(H) 0.0 - 0.5 % 08/14/2023 6:53 AM [facility] Neutrophils, Absolute 2.86 1.70 - 7.00 10*3/mm3 08/14/2023 6:53 AM EST [facility] Lymphocytes, Absolute 1.35 0.70 - 3.10 10*3/mm3 08/14/2023 6:53 AM EST [facility] Monocytes, Absolute 0.56 0.10 - 0.90 10*3/mm3 08/14/2023 6:53 AM EST [facility] Eosinophils, Absolute 0.31 0.00 - 0.40 10*3/mm3 08/14/2023 6:53 AM EST [facility] Basophils, Absolute 0.02 0.00 - 0.20 10*3/mm3 08/14/2023 6:53 AM EST [facility] Immature Grans, Absolute 0.10(H) 0.00 - 0.05 10*3/mm3 08/14/2023 6:53 AM [facility] nRBC 0.0 0.0 - 0.2 /100 WBC 08/14/2023 6:53 AM EST [facility] Blood Venipuncture / Unknown 08/14/2023 6:31 AM EST 08/14/2023 6:31 AM EST Maile Jasso APRN LAB BLOOD ORDERABLES Final Resu lt [facility]
[address] [place] [address], * (ABNORMAL) POC Glucose Once (08/13/2023 8:25 PM EST) Glucose 159(H) 70 - 130 mg/dL 08/13/2023 8:27 PM EST [facility] Blood 08/13/2023 8:25 PM EST 08/13/2023 8:27 PM EST Kaila Jhaveri MD POINT OF CARE TEST ORDER ASHISH Final Result [facility]
[address] [place] [address], * (ABNORMAL) POC Glucose Once (08/13/2023 3:51 PM EST) Glucose 173(H) 70 - 130 mg/dL 08/13/2023 3:52 PM EST [facility] Blood 08/13/2023 3:51 PM EST 08/13/2023 3:52 PM EST us Kaila Jhaveri MD POINT OF CARE TEST ORDER ASHISH Final Result Performing Organization Address City/[facility]/ZIP Co de Phone Number [facility]
[address] [place] [address], * (ABNORMAL) POC Glucose Once (08/13/2023 11:14 AM EST) Glucose 171(H) 70 - 130 mg/dL 08/13/2023 11:16 AM EST [facility] Blood 08/13/2023 11:1 4 AM EST 08/13/2023 11:16 AM EST us Kaila Jhaveri MD POINT OF CARE TEST ORDER ASHISH Final Result Performing Organization Address City/[facility] de Phone Number [facility]
[address] [place] [address], * (ABNORMAL) POC Glucose Once (08/13/2023 6:51 AM EST) Glucose 145(H) 70 - 130 mg/dL 08/13/2023 6:52 AM EST [facility] Blood 08/13/2023 6:51 AM EST 08/13/2023 6:52 AM EST us Kaila Jhaveri MD POINT OF CARE TEST ORDER ASHISH Final Result [facility]
[address] [place] [address], * (ABNORMAL) Phosphorus (08/13/2023 5:50 AM EST) [facility] Phosphorus 7.5(H) 2.5 - 4.5 mg/dL 08/13/2023 2:26 PM EST [facility] Blood Venipuncture / Unknown 08/13/2023 5:50 AM EST 08/13/2023 6:17 AM EST Maile Jasso DISABILITY LIAISON OFFICER LAB BLOOD ORDERABLES Final Resu lt [facility]
[address] [place] [address], * (ABNORMAL) CBC Auto Differential (08/13/2023 5:50 AM EST) [facility] WBC 5.16 3.40 - 10.80 10*3/mm3 08/13/2023 6:31 AM [facility] RBC 3.40(L) 4.14 - 5.80 10*6/mm3 08/13/2023 6:31 AM [facility] Hemoglobin 11.0(L) 13.0 - 17.7 g/dL 08/13/2023 6:31 AM [facility] Hematocrit 34.8(L) 37.5 - 51.0 % 08/13/2023 6:31 AM EST [facility] MCV 102.4(H) 79.0 - 97.0 fL 08/13/2023 6:31 AM [facility] MCH 32.4 26.6 - 33.0 pg 08/13/2023 6:31 AM [facility] MCHC 31.6 31.5 - 35.7 g/dL 08/13/2023 6:31 AM [facility] RDW 14.4 12.3 - 15.4 % 08/13/2023 6:31 AM [facility] RDW-SD 53.4 37.0 - 54.0 fl 08/13/2023 6:31 AM [facility] MPV 9.7 6.0 - 12.0 fL 08/13/2023 6:31 AM [facility] Platelets 187 140 - 450 10*3/mm3 08/13/2023 6:31 AM [facility] Neutrophil % 58.5 42.7 - 76.0 % 08/13/2023 6:31 AM [facility] Lymphocyte % 23.3 19.6 - 45.3 % 08/13/2023 6:31 AM [facility] Monocyte % 10.1 5.0 - 12.0 % 08/13/2023 6:31 AM [facility] Eosinophil % 5.6 0.3 - 6.2 % 08/13/2023 6:31 AM [facility] Basophil % 0.4 0.0 - 1.5 % 08/13/2023 6:31 AM [facility] Immature Grans % 2.1(H) 0.0 - 0.5 % 08/13/2023 6:31 AM [facility] Neutrophils, Absolute 3.02 1.70 - 7.00 10*3/mm3 08/13/2023 6:31 AM [facility] Lymphocytes, Absolute 1.20 0.70 - 3.10 10*3/mm3 08/13/2023 6:31 AM [facility] Monocytes, Absolute 0.52 0.10 - 0.90 10*3/mm3 08/13/2023 6:31 AM [facility] Eosinophils, Absolute 0.29 0.00 - 0.40 10*3/mm3 08/13/2023 6:31 AM [facility] Basophils, Absolute 0.02 0.00 - 0.20 10*3/mm3 08/13/2023 6:31 AM [facility] Immature Grans, Absolute 0.11(H) 0.00 - 0.05 10*3/mm3 08/13/2023 6:31 AM EST [facility] nRBC 0.0 0.0 - 0.2 /100 WBC 08/13/2023 6:31 AM EST [facility] Blood Venipuncture / Unknown 08/13/2023 5:50 AM EST 08/13/2023 6:17 AM EST Maile Jasso DISABILITY LIAISON OFFICER LAB BLOOD ORDERABLES Final Resu lt [facility]
[address] [place] [address], * (ABNORMAL) Basic Metabolic Panel (08/13/2023 5:50 AM EST) Glucose 148(H) 65 - 99 mg/dL 08/13/2023 7:14 AM EST [facility] BUN 41(H) 6 - 20 mg/dL 08/13/2023 7:14 AM [facility] Creatinine 8.59(H) 0.76 - 1.27 mg/dL 08/13/2023 7:14 AM [facility] Sodium 134(L) 136 - 145 mmol/L 08/13/2023 7:14 AM [facility] Potassium 5.0 3.5 - 5.2 mmol/L 08/13/2023 7:14 AM [facility] Chloride 98 98 - 107 mmol/L 08/13/2023 7:14 AM EST [facility] CO2 22.0 22.0 - 29.0 mmol/L 08/13/2023 7:14 AM [facility] Calcium 9.1 8.6 - 10.5 mg/dL 08/13/2023 7:14 AM [facility] BUN/Creatinine Ratio 4.8(L) 7.0 - 25.0 08/13/2023 7:14 AM [facility] Anion Gap 14.0 5.0 - 15.0 mmol/L 08/13/2023 7:14 AM [facility] eGFR 7.0(L) >60.0 mL/min/1.7 3 08/13/2023 7:14 AM EST [facility] Comment:<15 Indicative of ki dney failure Blood Venipuncture / Unknown 08/13/2023 5:50 AM EST 08/13/2023 6:17 AM EST Narrative [facility] - 08/13/2023 7:14 AM EST GFR Normal >60 Chronic Kidney Disease <60 Kidney Failure <15 Maile Jasso DISABILITY LIAISON OFFICER LAB BLOOD ORDERABLES Final Resu lt [facility]
[address] [place] [address], * (ABNORMAL) POC Glucose Once (08/12/2023 7:30 PM EST) Glucose 172(H) 70 - 130 mg/dL 08/12/2023 7:32 PM EST [facility] Blood 08/12/2023 7:30 PM EST 08/12/2023 7:32 PM EST Kaila Jhaveri MD POINT OF CARE TEST ORDER ASHISH Final Result Performing Organization Address City/[facility] Co de Phone Number [facility]
[address] [place] [address], * (ABNORMAL) POC Glucose Once (08/12/2023 3:24 PM EST) Glucose 195(H) 70 - 130 mg/dL 08/12/2023 3:29 PM EST [facility] Blood 08/12/2023 3:24 PM EST 08/12/2023 3:29 PM EST Kaila Jhaveri MD POINT OF CARE TEST ORDER ASHISH Final Result [facility]
[address] [place] [address], * (ABNORMAL) POC Glucose Once (08/12/2023 11:56 AM EST) Pathologist [facility] Glucose 148(H) 70 - 130 mg/dL 08/12/2023 11:58 AM EST [facility] Blood 08/12/2023 11:5 6 AM EST 08/12/2023 11:58 AM EST Kaila Jhaveri MD POINT OF CARE TEST ORDER ASHISH Final Result Performing Organization Address City/[facility]/ZIP Co de Phone Number [facility]
[address] [place] [address], * Vancomycin, Random (08/12/2023 5:59 AM EST) [facility] Vancomycin Random 19.80 5.00 - 40.00 mcg/mL 08/12/2023 7:11 AM EST [facility] Blood Venipuncture / Unknown 08/12/2023 5:59 AM EST 08/12/2023 6:31 AM EST Narrative [facility] - 08/12/2023 7:11 AM EST Therapeutic Ranges for Vancomycin Vancomycin Random ?? 5.0-40.0 mcg/mL Vancomycin Trough ?? 5.0-20.0 mcg/mL Vancomycin Peak ? 20.0-40.0 mcg/mL Juan Santoyo [facility] LAB BLOOD ORDERABLES Final Resu lt [facility]
[address] [place] [address], * TSH (08/12/2023 5:59 AM EST) [facility] TSH 2.790 0.270 - 4.200 uIU/mL 08/12/2023 7:02 AM EST [facility] Blood Venipuncture / Unknown 08/12/2023 5:59 AM EST 08/12/2023 6:31 AM EST Kaila Jhaveri MD LAB BLOOD ORDERABLES Fin al Result [facility]
[address] [place] [address], * (ABNORMAL) Lipid Panel (08/12/2023 5:59 AM EST) Total Cholesterol 246(H) 0 - 200 mg/dL 08/12/2023 7:11 AM EST [facility] Triglycerides 594(H) 0 - 150 mg/dL 08/12/2023 7:11 AM EST [facility] HDL Cholesterol 25(L) 40 - 60 mg/dL 08/12/2023 7:11 AM EST [facility] LDL Cholesterol 115(H) 0 - 100 mg/dL 08/12/2023 7:11 AM EST [facility] VLDL Cholesterol 106(H) 5 - 40 mg/dL 08/12/2023 7:11 AM EST [facility] LDL/HDL Ratio 4.09 08/12/2023 7:11 AM EST [facility] Blood Venipuncture / Unknown 08/12/2023 5:59 AM EST 08/12/2023 6:31 AM EST Narrative [facility] - 08/12/2023 7:11 AM EST Cholesterol Reference Ranges ([place] Department of Health and Human Services ATP III Classifications) Desirable ?<200 mg/dL Borderline High ?200-239 mg/dL High Risk ?>240 mg/dL Triglyceride Reference Ranges (U.S. Department of Health and Human Services ATP III Classifications) Normal ? <150 mg/dL Borderline High ??150-199 mg/dL High ? 200-499 mg/dL Very High ?>500 mg/dL HDL Reference Ranges (U.S. Department of Health and Human Services ATP III Classifications) Low ? <40 mg/dl (major risk factor for CHD) High ?>60 mg/dl ('negative' risk factor for CHD) LDL Reference Ranges (U.S. Department of Health and Human Services ATP III Classifications) Optimal ?<100 mg/dL Near Optimal ? 100-129 mg/dL Borderline High ??130-159 mg/dL High ? 160-189 mg/dL Very High ?>189 mg/dL Kaila Jhaveri MD LAB BLOOD ORDERABLES Fin al Result Performing Organization Address [facility] de Phone Number [facility]
[address] [place] [address], * (ABNORMAL) Hemoglobin A1c (08/12/2023 5:59 AM EST) Hemoglobin A1C 6.50(H) 4.80 - 5.60 % 08/12/2023 6:49 AM EST [facility] Blood Venipuncture / Unknown 08/12/2023 5:59 AM EST 08/12/2023 6:31 AM EST Narrative [facility] - 08/12/2023 6:49 AM EST Hemoglobin A1C Ranges: Increased Risk for Diabetes ??5.7% to 6.4% Diabetes ? >= 6.5% Diabetic Goal ?< 7.0% Kaila Jhaveri MD LAB BLOOD ORDERABLES Fin al Result Performing Organization Address [facility] de Phone Number THREE [facility]
[address] [place] [address], * (ABNORMAL) CBC (No Diff) (08/12/2023 5:59 AM EST) WBC 6.39 3.40 - 10.80 10*3/mm3 08/12/2023 6:40 AM EST [facility] RBC 3.57(L) 4.14 - 5.80 10*6/mm3 08/12/2023 6:40 AM EST [facility] Hemoglobin 11.5(L) 13.0 - 17.7 g/dL 08/12/2023 6:40 AM EST [facility] Hematocrit 36.3(L) 37.5 - 51.0 % 08/12/2023 6:40 AM EST [facility] MCV 101.7(H) 79.0 - 97.0 fL 08/12/2023 6:40 AM EST [facility] MCH 32.2 26.6 - 33.0 pg 08/12/2023 6:40 AM EST [facility] MCHC 31.7 31.5 - 35.7 g/dL 08/12/2023 6:40 AM EST [facility] RDW 14.8 12.3 - 15.4 % 08/12/2023 6:40 AM EST [facility] RDW-SD 54.4(H) 37.0 - 54.0 fl 08/12/2023 6:40 AM EST [facility] MPV 9.8 6.0 - 12.0 fL 08/12/2023 6:40 AM EST [facility] Platelets 197 140 - 450 10*3/mm3 08/12/2023 6:40 AM EST [facility] Blood Venipuncture / Unknown 08/12/2023 5:59 AM EST 08/12/2023 6:31 AM EST us Kaila Jhaveri MD LAB BLOOD ORDERABLES Fin al Result [facility]
[address] [place] [address], * (ABNORMAL) Basic Metabolic Panel (08/12/2023 5:59 AM EST) Pathologist [facility] Glucose 134(H) 65 - 99 mg/dL 08/12/2023 7:15 AM EST [facility] BUN 61(H) 6 - 20 mg/dL 08/12/2023 7:15 AM EST [facility] Creatinine 10.39(H) 0.76 - 1.27 mg/dL 08/12/2023 7:15 AM EST [facility] Sodium 137 136 - 145 mmol/L 08/12/2023 7:15 AM EST [facility] Potassium 6.4(HH) 3.5 - 5.2 mmol/L 08/12/2023 7:15 AM EST [facility] Chloride 101 98 - 107 mmol/L 08/12/2023 7:15 AM EST [facility] CO2 19.0(L) 22.0 - 29.0 mmol/L 08/12/2023 7:15 AM EST [facility] Calcium 8.8 8.6 - 10.5 mg/dL 08/12/2023 7:15 AM EST [facility] BUN/Creatinine Ratio 5.9(L) 7.0 - 25.0 08/12/2023 7:15 AM EST [facility] Anion Gap 17.0(H) 5.0 - 15.0 mmol/L 08/12/2023 7:15 AM EST [facility] eGFR 5.6(L) >60.0 mL/min/1.7 3 08/12/2023 7:15 AM EST [facility] Comment:<15 Indicative of ki dney failure Blood Venipuncture / Unknown 08/12/2023 5:59 AM EST 08/12/2023 6:31 AM EST [facility] - 08/12/2023 7:15 AM EST GFR Normal >60 Chronic Kidney Disease <60 Kidney Failure <15 us Kaila Jhaveri MD LAB BLOOD ORDERABLES Fin al Result [facility]
[address] [place] [address], [place] [phone] * (ABNORMAL) POC Glucose Once (08/11/2023 8:36 PM EST) Glucose 194(H) 70 - 130 mg/dL 08/11/2023 8:37 PM EST [facility] Blood 08/11/2023 8:36 PM EST 08/11/2023 8:37 PM EST Kaila Jhaveri MD POINT OF CARE TEST ORDER ASHISH Final Result Performing Organization Address [facility] Co de Phone Number [facility]
[address] [place] [address], * IR Tunneled Catheter (08/11/2023 3:41 PM EST) Anatomical Region Laterality Modality Body N/A X-Ray Angiograph y 08/11/2023 4:18 PM EST Impressions 08/11/2023 4:21 PM EST Impression: ? Successful ultrasound and fluoroscopic guided right external jugular vein route cuffed tunneled hemodialysis catheter placement as described above. Thank you for the opportunity to assist in the care of your patient. Electronically Signed: Victor Manuel Castro MD 08/11/2023 4:21 PM EST Workstation ID: [id number] Narrative 08/11/2023 4:21 PM EST IR TUNNELED CATHETER History: dialysis Shaper And Presser: Victor Manuel Castro MD. Modality: Sonography and fluoroscopy Fluoro time: 2.2 minutes Radiation Dose: 50.8 mGy air Kerma. ?? SEDATION: Moderate sedation was administered. 1 milligram of Versed and 50 micrograms of fentanyl IV was used for moderate sedation. Total intra service time of sedation was 166 minutes. The sedation was administered and the patient's vital signs monitored throughout the procedure and recorded in the patient's medical record by the nurse under my direct supervision. Medicines: Not applicable. Anesthesia: Lidocaine 1% with epinephrine, local infiltration Estimated blood loss: ??< 5 cc. ? Technique: A thorough discussion of the risks, benefits, and alternatives of the procedure, and if applicable, moderate sedation, was carried out with the patient. This was done at the time of initial consent process for left forearm AV fistula treatment. They were encouraged to ask any questions. [...] preliminary ultrasonogram was performed of the target that revealed a patent and compressible Right internal jugular vein. Pertinent ultrasound images were stored in the PACS for documentation. A sterile prep and drape of the right neck and upper chest was performed using maximal sterile technique. Using aseptic precautions, real-time ultrasound guidance, the target vein was accessed after local anesthetic infiltration and dermatotomy with an access needle. A guidewire was advanced into the central venous system under fluoroscopic guidance. The guidewire however could not be advanced beyond the more central part of the right internal jugular vein. The patient has a history of a prior right IJ tunneled dialysis catheter. The vein is presumed occluded. There was a patent right external jugular vein. Using an identical technique, the vein was accessed with a micropuncture device after local anesthesia and dermatotomy and a 018 guidewire was advanced into the central venous system under fluoroscopy without difficulty. Over the wire following standard technique a peel-away sheath was placed. After local anesthesia, an incision was created at the exit site location and a cuffed tunneled dialysis catheter of an appropriate length was tunneled from the exit site to the venotomy site using a tunneling device. The catheter was advanced into the venous system through the peel-away sheath which was removed. The catheter aspirated and flushed well and was terminally packed with heparin 1000 units per cc. The catheter was secured to skin using nonabsorbable suture and a CHG dressing applied. The venotomy site was closed using Dermabond. An aseptic dressing was applied using the protocol for Dermabond. The patient was transferred to the recovery area and was discharged from the department in stable condition. Complications: None immediate. ? Device: 15.5 Albanian x 23 cm cuff to tip Duraflow catheter. Findings: Patent and compressible Right internal jugular vein which is centrally most likely occluded. Patent and compressible right external jugular vein. Final image shows the catheter to be in good position with the catheter tip in the right atrium, an excellent position for use. There is no complication. Procedure Note Victor Manuel Castro MD - 08/11/2023 IR TUNNELED CATHETER History: dialysis Shaper And Presser: Victor Manuel Castro MD. Modality: Sonography and fluoroscopy Fluoro time: 2.2 minutes Radiation Dose: 50.8 mGy air Kerma. SEDATION: Moderate sedation was administered. 1 milligram of Versed and 50micrograms of fentanyl IV was used for moderate sedation. Total intraservice time of sedation was 166 minutes. The sedation was administeredand the patient's vital signs monitored throughout the procedure and recorded in the patient's medicalrecord by the nurse under my direct supervision. Medicines: Not applicable. Anesthesia: Lidocaine 1% with epinephrine, local infiltration Estimated blood loss: < 5 cc. Technique: A thorough discussion of the risks, benefits, and alternatives of theprocedure, and if applicable, moderate sedation, was carried out with thepatient. This was done at the time of initial consent process for leftforearm AV fistula treatment. They were encouraged to ask any questions. Any questions were answered. Theyverbalized understanding. A written informed consent was then signed. A multi-component timeout was performed prior to starting the procedureusing the departmental protocol. The procedure room personnel used personal protective equipment. Theoperators used sterile gloves and if indicated, sterile gowns. Thesurgical site was prepped with chlorhexidine gluconate and draped in themaximal applicable sterile fashion. A preliminary ultrasonogram was performed of the target that revealed apatent and compressible Right internal jugular vein. Pertinent ultrasoundimages were stored in the PACS for documentation. A sterile prep and drape of the right neck and upper chest was performedusing maximal sterile technique. Using aseptic precautions, real-time ultrasound guidance, the target veinwas accessed after local anesthetic infiltration and dermatotomy with anaccess needle. A guidewire was advanced into the central venous systemunder fluoroscopic guidance. The guidewire however could not be advanced beyond the more central part ofthe right internal jugular vein. The patient has a history of a priorright IJ tunneled dialysis catheter. The vein is presumed occluded. There was a patent right external jugular vein. Using an identicaltechnique, the vein was accessed with a micropuncture device after localanesthesia and dermatotomy and a 018 guidewire was advanced into thecentral venous system under fluoroscopy without difficulty. Over the wire following standard technique a peel-awaysheath was placed. After local anesthesia, an incision was created at the exit site locationand a cuffed tunneled dialysis catheter of an appropriate length wastunneled from the exit site to the venotomy site using a tunneling device.The catheter was advanced into the venous system through the peel-away sheath which was removed. The catheter aspirated and flushed well and was terminally packed withheparin 1000 units per cc. The catheter was secured to skin using nonabsorbable suture and a CHGdressing applied. The venotomy site was closed using Dermabond. An aseptic dressing wasapplied using the protocol for Dermabond. The patient was transferred to the recovery area and was discharged fromthe department in stable condition. Complications: None immediate. Device: 15.5 Albanian x 23 cm cuff to tip Duraflow catheter. Findings: Patent and compressible Right internal jugular vein which iscentrally most likely occluded. Patent and compressible right externaljugular vein. Final image shows the catheter to be in good position withthe catheter tip in the right atrium, an excellent position for use. There is no complication. IMPRESSION: Impression: Successful ultrasound and fluoroscopic guided right external jugular veinroute cuffed tunneled hemodialysis catheter placement as describedabove. Thank you for the opportunity to assist in the care of your patient. 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 There is 80-90% stenosis of the multiple sites of the outflow veins. I could not access the stenotic segments as mentioned above. A tunneled dialysis catheter was placed via right external jugular vein. 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 There are 2 options to manage the left forearm AV fistula. 1 option could be to create a jump graft between the cephalic vein in the upper arm to the basilic vein in the upper arm beyond the stenosis. De renan brachial basilic fistula would be another option. The IR based option is to bring the patient back with anesthesia support because of multiple comorbidities and go retrograde via the left external jugular vein or antegrade via the left ulnar vein to perform angioplasty of these otherwise difficult to reach segments. Please remove the pursestring suture after 24 hours. Thank you for the opportunity to assist in the care of your patient. Electronically Signed: Victor Manuel Castro MD 08/11/2023 5:56 PM EST Workstation ID: [id number] Narrative 08/11/2023 5:56 PM EST IR FISTULOGRAM LEFT FOREARM FISTULA. History: Left forearm AV fistula. High pressure in fistula. A focal area of infection at one of the access sites. Dialysis cannot be provided. Shaper And Presser: Victor Manuel Castro M.D. Modality: Sonography and fluoroscopy. DOSE REDUCTION: The examination was performed according to departmental dose-optimization program. Fluoro time: 19.8 minutes Radiation dose: 16.3 mGy air Kerma. Sedation: The sedation was administered and the patient's vital signs monitored throughout the procedure and recorded in the patient's medical record by the nurse under my direct supervision. Please see the report on tunneled dialysis catheter placement for the sedation medicine and dosis along with the sedation time. The TDC was placed immediately after this procedure. Anesthesia: Lidocaine 1% local infiltration. Medicines: None Contrast medium: Isovue 300, 25 cc. Estimated blood loss: < 5 cc. Technique: [...] draped in the maximal applicable sterile fashion. The patient was laid supine on the procedure table. The surgical site was prepped with chlorhexidine gluconate and draped in the standard sterile fashion. After local anesthesia and dermatotomy, the fistula was accessed in antegrade direction in the distal forearm region. Through the needle, a 018 guidewire was placed in the fistula followed by placement of a conversion sheath. The sheath was then used for performing a fistulogram and an outflow venogram. Later in the case, completion central venogram was also performed There is presence of a hypertrophic left forearm radiocephalic fistula. There is a blind ending cephalic vein just above the elbow joint. There is flow via the antecubital vein into the milk condenser vein and then into the basilic and brachial veins. There is severe apparently 80-90% stenosis at the point where the milk condenser vein meets the brachial vein and also in the brachial and basilic veins approximately 3 cm above the elbow joint line. The fistula is tortuous and because of the collateralization, it is almost a Z-shaped configuration with stenosis at the sharp bend below the elbow. There is no other stenosis in the fistula outflow. Over the wire, a 7 Albanian sheath was placed. Diligent effort was made to cross the milk condenser vein into the brachial vein using multiple types of angled glide wires, catheters, coaxial 5 Albanian sheath through the 7 Albanian sheath. These were unsuccessful. I also punctured the blind-ending part of the cephalic vein above the elbow joint directly under ultrasound guidance after local anesthesia with a micropuncture device. Pertinent ultrasound images were stored in the the PACS. I was still not able to cross the point of sharp angulation/stenosis of the milk condenser vein joining the brachial vein. This is a large high flow fistula. Reflux run was not performed. The access was withdrawn and hemostasis secured by application of a pursestring suture and/or manual compression. An aseptic dressing was applied. The patient was then transferred to the recovery area and discharged from the department in stable condition. Complications: None immediate. Findings: As above. Procedure Note Victor Manuel Castro MD - 08/11/2023 IR FISTULOGRAM LEFT FOREARM FISTULA. History: Left forearm AV fistula. High pressure in fistula. A focal areaof infection at one of the access sites. Dialysis cannot be provided. Shaper And Presser: Victor Manuel Castro M.D. Modality: Sonography and fluoroscopy. DOSE REDUCTION: The examination was performed according to departmentaldose-optimization program. Fluoro time: 19.8 minutes Radiation dose: 16.3 mGy air Kerma. Sedation: The sedation was administered and the patient's vital signs monitoredthroughout the procedure and recorded in the patient's medical record bythe nurse under my direct supervision. Please see the report on tunneleddialysis catheter placement for the sedation medicine and dosis along with the sedation time. The TDC wasplaced immediately after this procedure. Anesthesia: Lidocaine 1% local infiltration. Medicines: None Contrast medium: Isovue 300, 25 cc. Estimated blood loss: < 5 cc. Technique: [...] and draped in themaximal applicable sterile fashion. The patient was laid supine on the procedure table. The surgical site wasprepped with chlorhexidine gluconate and draped in the standard sterilefashion. After local anesthesia and dermatotomy, the fistula was accessed inantegrade direction in the distal forearm region. Through the needle, a018 guidewire was placed in the fistula followed by placement of aconversion sheath. The sheath was then used for performing a fistulogram and an outflow venogram. Later in the case,completion central venogram was also performed There is presence of a hypertrophic left forearm radiocephalic fistula.There is a blind ending cephalic vein just above the elbow joint. There isflow via the antecubital vein into the milk condenser vein and then into thebasilic and brachial veins. There is severe apparently 80-90% stenosis at the point where the perforatorvein meets the brachial vein and also in the brachial and basilic veinsapproximately 3 cm above the elbow joint line. The fistula is tortuous andbecause of the collateralization, it is almost a Z-shaped configuration with stenosis at the sharp bend belowthe elbow. There is no other stenosis in the fistula outflow. Over the wire, a 7 Albanian sheath was placed. Diligent effort was made tocross the milk condenser vein into the brachial vein using multiple types ofangled glide wires, catheters, coaxial 5 Albanian sheath through the 7French sheath. These were unsuccessful. I also punctured the blind-ending part of the cephalic vein above theelbow joint directly under ultrasound guidance after local anesthesia witha micropuncture device. Pertinent ultrasound images were stored in the thePACS. I was still not able to cross the point of sharp angulation/stenosis of the milk condenser veinjoining the brachial vein. This is a large high flow fistula. Reflux run was not performed. The access was withdrawn and hemostasis secured by application of apursestring suture and/or manual compression. An aseptic dressing wasapplied. The patient was then transferred to the recovery area and discharged fromthe department in stable condition. Complications: None immediate. Findings: As above. IMPRESSION: Impression: Left forearm radiocephalic fistula with hypertrophy of the forearmcephalic vein, occlusion of the cephalic vein just above the elbow andcollateral flow via antecubital vein and the forearm milk condenser vein intoforearm brachial vein and via the tortuous medial upper arm collateral veins including the brachial and basilicveins. There is 80-90% stenosis of the multiple sites of the outflowveins. I could not access the stenotic segments as mentioned above. A tunneled dialysis catheter was placed via right external jugular vein. 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 There are 2 options to manage theleft forearm AV fistula. 1 option could be to create a jump graft betweenthe cephalic vein in the upper arm to the basilic vein in the upper armbeyond the stenosis. De renan brachial basilic fistula would be another option. The IR based option is to bring the patient back with anesthesia supportbecause of multiple comorbidities and go retrograde via the left externaljugular vein or antegrade via the left ulnar vein to perform angioplastyof these otherwise difficult to reach segments. Please remove the pursestring suture after 24 hours. Thank you for the opportunity to assist in the care of your patient. Electronically Signed: Victor Manuel Castro MD 08/11/2023 5:56 PM EST Workstation ID: [id number] us Glenn Kay MD IMG IR ORDERABLES Final Result * Protime-INR (08/11/2023 11:40 AM EST) Protime 13.7 12.2 - 14.5 Seconds 08/11/2023 12:23 PM EST [facility] INR 1.03 0.89 - 1.12 08/11/2023 12:23 PM EST [facility] Blood Venipuncture / Unknown 08/11/2023 11:40 AM EST 08/11/2023 12:05 PM EST us Victor Manuel Castro MD LAB BLOOD ORDERABLES Fin al Result [facility]
[address] [place] [address], * Duplex Hemodialysis Access CAR (08/11/2023 11:18 AM EST) PRE-INFLOW BRACHIAL PSV 143 cm/sec PRE-INFLOW BRACHIAL EDV 45 cm/sec PRE-INFLOW RADIAL PSV 173 cm/sec PRE-INFLOW RADIAL EDV 66 cm/sec PRE-INFLOW RADIAL FLOW VOL 639 mL/min ARTERIAL ANASTOMOSIS PSV 364 cm/sec ARTERIAL ANASTOMOSIS EDV 82 cm/sec ARTERIAL ANASTOMOSIS DIAMETER 0.63 cm CONDUIT PROX PSV 94 cm/sec CONDUIT PROX EDV 21 cm/sec CONDUIT PROX DIAMETER 2.32 cm CONDUIT PROX DEPTH 1.11 cm CONDUIT MID PSV 108 cm/sec CONDUIT MID EDV 52 cm/sec CONDUIT MID DIAMETER 1.35 cm CONDUIT MID FLOW VOL 2,004 mL/min CONDUIT MID DEPTH 1.30 cm CONDUIT MID/DIST PSV 324 cm/sec CONDUIT MID/DIST EDV 166 cm/sec PRE-INFLOW SUBCLAV PSV 147 cm/sec VENOUS OUTFLOW CEPHALIC VEIN PSV 11 cm/sec VENOUS OUTFLOW BASILIC VEIN PSV 77 cm/sec VENOUS OUTFLOW SUBCLAVIAN PSV 99 cm/sec VENOUS OUTFLOW SUBCLAVIAN EDV 43 cm/sec Anatomical Region Laterality Modality Ultrasound Narrative 08/11/2023 5:21 PM EST ?S/P left radio cephalic AVF. ?Inflow artery and proximal anastomosis velocities appear within normal/expected limits. ?Low flow velocities noted within the proximal and mid portions of the fistula with resistive waveforms. ?Primary outflow of the fistula noted through the brachial vein. Study Findings A left sided radial-cephalic autogenous arteriovenous (AV) fistula is present. S/P left radio cephalic AVF. The fistula is tortuous with aneurysmal segments. Highest velocity noted at arterial anastomosis 364/82 cm/s with a ratio of 2.1. The cephalic vein terminates abruptly in the proximal forearm. Outflow appears to flow into median cubital vein. Increased velocities in the brachial veins 165/71.9 cm/s suggesting this is the main outflow track for the fistula in the upper arm. Additional Study Details The study is technically adequate for diagnosis. The quality of the study is limited due to dressings. Kaila Jhaveri MD CV VASCULAR ORDERABLES F inal Result * POC Glucose Once (08/11/2023 5:07 AM EST) Glucose 110 70 - 130 mg/dL 08/11/2023 5:08 AM EST [facility] Blood 08/11/2023 5:07 AM EST 08/11/2023 5:08 AM EST Danya Garcia MD POINT OF CARE TEST ORDERABLES Final Result [facility]
[address] [place] [address], * (ABNORMAL) Procalcitonin (08/11/2023 4:51 AM EST) Procalcitonin 0.33(H) 0.00 - 0.25 ng/mL 08/11/2023 8:34 AM EST [facility] Blood Venipuncture / Unknown 08/11/2023 4:51 AM EST 08/11/2023 5:22 AM EST Narrative [facility] - 08/11/2023 8:34 AM EST As a Marker for Sepsis (Non-Neonates): 1. [...] Day 4 values are available. Refer to http://www.dbhuvz-inv-wwbpxeytib.com Change in PCT <=80% A decrease of [...] diagnosed with severe sepsis or septic shock. Kaila Jhaveri MD LAB BLOOD ORDERABLES Fin al Result Performing Organization Address [facility]/ZIP Co de Phone Number [facility]
[address] [place] [address], * (ABNORMAL) Phosphorus (08/11/2023 4:51 AM EST) Phosphorus 4.7(H) 2.5 - 4.5 mg/dL 08/11/2023 7:27 AM EST [facility] Blood Venipuncture / Unknown 08/11/2023 4:51 AM EST 08/11/2023 5:22 AM EST Danya Garcia MD LAB BLOOD ORDERABLES Final Re sult Performing Organization Address [facility] Co de Phone Number [facility]
[address] [place] [address], * (ABNORMAL) Basic Metabolic Panel (08/11/2023 4:51 AM EST) Glucose 104(H) 65 - 99 mg/dL 08/11/2023 6:16 AM EST [facility] BUN 83(H) 6 - 20 mg/dL 08/11/2023 6:16 AM EST [facility] Creatinine 12.28(H) 0.76 - 1.27 mg/dL 08/11/2023 6:16 AM EST [facility] Sodium 137 136 - 145 mmol/L 08/11/2023 6:16 AM EST [facility] Potassium 5.7(H) 3.5 - 5.2 mmol/L 08/11/2023 6:16 AM EST [facility] Comment:Slight hemolysis det ected by analyzer. Result may be falsely elevated. Chloride 102 98 - 107 mmol/L 08/11/2023 6:16 AM EST [facility] CO2 18.0(L) 22.0 - 29.0 mmol/L 08/11/2023 6:16 AM EST [facility] Calcium 8.7 8.6 - 10.5 mg/dL 08/11/2023 6:16 AM EST [facility] BUN/Creatinine Ratio 6.8(L) 7.0 - 25.0 08/11/2023 6:16 AM EST [facility] Anion Gap 17.0(H) 5.0 - 15.0 mmol/L 08/11/2023 6:16 AM EST [facility] eGFR 4.5(L) >60.0 mL/min/1.7 3 08/11/2023 6:16 AM EST [facility] Comment:<15 Indicative of ki dney failure Blood Venipuncture / Unknown 08/11/2023 4:51 AM EST 08/11/2023 5:22 AM EST Narrative [facility] - 08/11/2023 6:16 AM EST GFR Normal >60 Chronic Kidney Disease <60 Kidney Failure <15 Danya Garcia MD LAB BLOOD ORDERABLES Final Re sult [facility]
[address] [place] [address], * POC Glucose Once (08/11/2023 2:51 AM EST) Glucose 123 70 - 130 mg/dL 08/11/2023 2:53 AM EST [facility] Blood 08/11/2023 2:51 AM EST 08/11/2023 2:53 AM EST Danya Garcia MD POINT OF CARE TEST ORDERABLES Final Result [facility]
[address] [place] [address], * POC Glucose Once (08/11/2023 2:17 AM EST) Glucose 89 70 - 130 mg/dL 08/11/2023 2:18 AM EST [facility] Blood 08/11/2023 2:17 AM EST 08/11/2023 2:18 AM EST Danya Garcia MD POINT OF CARE TEST ORDERABLES Final Result [facility]
[address] [place] [address], * (ABNORMAL) Comprehensive Metabolic Panel (08/11/2023 12:48 AM EST) Glucose 130(H) 65 - 99 mg/dL 08/11/2023 1:54 AM EST [facility] BUN 80(H) 6 - 20 mg/dL 08/11/2023 1:54 AM EST [facility] Creatinine 12.29(H) 0.76 - 1.27 mg/dL 08/11/2023 1:54 AM EST [facility] Sodium 136 136 - 145 mmol/L 08/11/2023 1:54 AM EST [facility] Potassium 6.8(HH) 3.5 - 5.2 mmol/L 08/11/2023 1:54 AM [facility] Comment: Specimen hemolyzed. ??Result may be falsely elevated. Hemolyzed specimen. Testing performed per physician request. Chloride 101 98 - 107 mmol/L 08/11/2023 1:54 AM EST [facility] CO2 19.0(L) 22.0 - 29.0 mmol/L 08/11/2023 1:54 AM EST [facility] Calcium 8.6 8.6 - 10.5 mg/dL 08/11/2023 1:54 AM [facility] Total Protein 7.0 6.0 - 8.5 g/dL 08/11/2023 1:54 AM EST [facility] Albumin 4.1 3.5 - 5.2 g/dL 08/11/2023 1:54 AM EST [facility] ALT (SGPT) <5 1 - 41 U/L 08/11/2023 1:54 AM EST [facility] Comment:Specimen hemolyzed. Result may be falsely elevated. AST (SGOT) <5 1 - 40 U/L 08/11/2023 1:54 AM EST [facility] Alkaline Phosphatase 197(H) 39 - 117 U/L 08/11/2023 1:54 AM [facility] Total Bilirubin 0.3 0.0 - 1.2 mg/dL 08/11/2023 1:54 AM EST [facility] Globulin 2.9 gm/dL 08/11/2023 1:54 AM [facility] Comment:Calculated Result A/G Ratio 1.4 g/dL 08/11/2023 1:54 AM EST [facility] BUN/Creatinine Ratio 6.5(L) 7.0 - 25.0 08/11/2023 1:54 AM [facility] Anion Gap 16.0(H) 5.0 - 15.0 mmol/L 08/11/2023 1:54 AM EST [facility] eGFR 4.5(L) >60.0 mL/min/1. 73 08/11/2023 1:54 AM [facility] Comment:<15 Indicative of ki dney failure Blood Venipuncture / Unknown 08/11/2023 12:48 AM EST 08/11/2023 1:13 AM EST Narrative [facility] - 08/11/2023 1:54 AM EST GFR Normal >60 Chronic Kidney Disease <60 Kidney Failure <15 us Danya Garcia MD LAB BLOOD ORDERABLES Final Re sult [facility]
[address] [place] [address], * MRSA Screen, PCR (Inpatient) - Swab, Nares (08/10/2023 11:34 PM EST) MRSA PCR Negative Negative CEPHEID GENEXPERT 08/11/2023 7:41 AM EST [facility] Swab Structure of anterior naris / Unknown Collection / Unknown 08/10/2023 11:34 PM EST 08/10/2023 11:58 PM EST Narrative [facility] - 08/11/2023 7:41 AM EST The negative predictive value of this diagnostic test is high and should only be used to consider de-escalating anti-MRSA therapy. A positive result may indicate colonization with MRSA and must be correlated clinically. MRSA Negative Darrian Dawn IVD MICROBIOLOGY - GENE RAL ORDERABLES Final Result [facility]
[address] [place] [address], * XR Chest 1 View (08/10/2023 9:56 PM EST) Anatomical Region Laterality Modality Body N/A Radiographic Sobia ging 08/10/2023 9:59 PM EST Impressions 08/10/2023 10:00 PM EST Impression: No evidence of acute cardiopulmonary disease. Electronically Signed: Dmitry Galeano MD 08/10/2023 10:00 PM EST Workstation ID: [id number] Narrative 08/10/2023 10:00 PM EST XR CHEST 1 VW Date of Exam: 08/10/2023 9:27 PM EST Indication: chest discomfort Comparison: Chest radiograph 04/28/2020 Findings: Cardiomediastinal silhouette is unchanged. Left upper lobe calcified granuloma. No focal consolidation or overt pulmonary edema. No pleural effusion or pneumothorax. Osseous structures are unremarkable. Procedure Note Dmitry Galeano MD - 08/10/2023 XR CHEST 1 VW Date of Exam: 08/10/2023 9:27 PM EST Indication: chest discomfort Comparison: Chest radiograph 04/28/2020 Findings: Cardiomediastinal silhouette is unchanged. Left upper lobe calcifiedgranuloma. No focal consolidation or overt pulmonary edema. No pleuraleffusion or pneumothorax. Osseous structures are unremarkable. IMPRESSION: Impression: No evidence of acute cardiopulmonary disease. Electronically Signed: Dmitry Galeano MD 08/10/2023 10:00 PM EST Workstation ID: [id number] Danya Garcia MD IMG DIAGNOSTIC IMAGING ORDERA BLES Final Result * Blood Culture - Blood, Hand, Right (08/10/2023 9:50 PM EST) Pathologist [facility] Blood Culture No growth at 5 days 08/16/2023 12:15 AM EST [facility] Blood Structure of right hand / Unknown Venipuncture / Unknown 08/10/2023 9:50 PM EST 08/11/2023 12:10 AM EST Danya Garcia MD MICROBIOLOGY - GENERAL ORDERA BLES Final Result Performing Organization Address [facility] de Phone Number [facility]
[address] [place] [address], * Lactic Acid, Plasma (08/10/2023 9:30 PM EST) [facility] Lactate 1.0 0.5 - 2.0 mmol/L 08/10/2023 10:03 PM EST [facility] Comment:Falsely depressed re sults may occur on samples drawn from patients receiving N-Acetylcysteine (NAC) or Metamizole. Blood Venipuncture / Unknown 08/10/2023 9:30 PM EST 08/10/2023 9:43 PM EST us Danya Garcia MD LAB BLOOD ORDERABLES Final Re sult Performing Organization Address City/[facility]/ZIP Co de Phone Number [facility]
[address] [place] [address], * Blood Culture - Blood, Arm, Right (08/10/2023 9:30 PM EST) Pathologist [facility] Blood Culture No growth at 5 days 08/16/2023 12:15 AM EST [facility] Blood Structure of right upper limb / Unknown Venipuncture / Unknown 08/10/2023 9:30 PM EST 08/11/2023 12:10 AM EST us Danya Garcia MD MICROBIOLOGY - GENERAL ORDERA BLES Final Result [facility]
[address] [place] [address], * Light Blue Top (08/10/2023 9:30 PM EST) Extra Tube Hold for add-ons. 08/10/2023 10:31 PM EST [facility] Comment:Auto resulted Blood Venipuncture / Unknown 08/10/2023 9:30 PM EST 08/10/2023 9:43 PM EST us Danya Garcia MD LAB BLOOD ORDER ONLY Final Re sult Performing Organization Address City/[facility]/ZIP Co de Phone Number [facility]
[address] [place] [address], * Vazquez Top (08/10/2023 9:30 PM EST) Extra Tube Hold for add-ons. 08/11/2023 1:30 AM EST [facility] Comment:Auto resulted. Blood Venipuncture / Unknown 08/10/2023 9:30 PM EST 08/10/2023 9:43 PM EST us Danya Garcia MD LAB BLOOD ORDER ONLY Final Re sult Performing Organization Address City/[facility]/ZIP Co de Phone Number [facility]
[address] [place] [address], * Gold Top - SST (08/10/2023 9:30 PM EST) Extra Tube Hold for add-ons. 08/10/2023 10:31 PM EST [facility] Comment:Auto resulted. Blood Venipuncture / Unknown 08/10/2023 9:30 PM EST 08/10/2023 9:43 PM EST us Danya Garcia MD LAB BLOOD ORDER ONLY Final Re sult Performing Organization Address City/[facility] Co de Phone Number [facility]
[address] [place] [address], * Lavender Top (08/10/2023 9:30 PM EST) Extra Tube hold for add-on 08/10/2023 10:31 PM EST [facility] Comment:Auto resulted Blood Venipuncture / Unknown 08/10/2023 9:30 PM EST 08/10/2023 9:43 PM EST us Danya Garcia MD LAB BLOOD ORDER ONLY Final Re sult Performing Organization Address [facility] de Phone Number [facility]
[address] [place] [address], * Green Top (Gel) (08/10/2023 9:30 PM EST) Extra Tube Hold for add-ons. 08/10/2023 10:31 PM EST [facility] Comment:Auto resulted. Blood Venipuncture / Unknown 08/10/2023 9:30 PM EST 08/10/2023 9:43 PM EST us Danya Garcia MD LAB BLOOD ORDER ONLY Final Re sult Performing Organization Address [facility] Co de Phone Number [facility]
[address] [place] [address], * (ABNORMAL) CBC Auto Differential (08/10/2023 9:30 PM EST) WBC 9.22 3.40 - 10.80 10*3/mm3 08/10/2023 9:50 PM [facility] RBC 4.20 4.14 - 5.80 10*6/mm3 08/10/2023 9:50 PM [facility] Hemoglobin 13.9 13.0 - 17.7 g/dL 08/10/2023 9:50 PM [facility] Hematocrit 43.3 37.5 - 51.0 % 08/10/2023 9:50 PM [facility] MCV 103.1(H) 79.0 - 97.0 fL 08/10/2023 9:50 PM [facility] MCH 33.1(H) 26.6 - 33.0 pg 08/10/2023 9:50 PM [facility] MCHC 32.1 31.5 - 35.7 g/dL 08/10/2023 9:50 PM [facility] RDW 14.7 12.3 - 15.4 % 08/10/2023 9:50 PM [facility] RDW-SD 55.2(H) 37.0 - 54.0 fl 08/10/2023 9:50 PM [facility] MPV 9.5 6.0 - 12.0 fL 08/10/2023 9:50 PM [facility] Platelets 278 140 - 450 10*3/mm3 08/10/2023 9:50 PM [facility] Neutrophil % 65.9 42.7 - 76.0 % 08/10/2023 9:50 PM [facility] Lymphocyte % 21.4 19.6 - 45.3 % 08/10/2023 9:50 PM [facility] Monocyte % 6.0 5.0 - 12.0 % 08/10/2023 9:50 PM [facility] Eosinophil % 4.6 0.3 - 6.2 % 08/10/2023 9:50 PM [facility] Basophil % 0.3 0.0 - 1.5 % 08/10/2023 9:50 PM [facility] Immature Grans % 1.8(H) 0.0 - 0.5 % 08/10/2023 9:50 PM EST [facility] Neutrophils, Absolute 6.08 1.70 - 7.00 10*3/mm3 08/10/2023 9:50 PM EST [facility] Lymphocytes, Absolute 1.97 0.70 - 3.10 10*3/mm3 08/10/2023 9:50 PM EST [facility] Monocytes, Absolute 0.55 0.10 - 0.90 10*3/mm3 08/10/2023 9:50 PM EST [facility] Eosinophils, Absolute 0.42(H) 0.00 - 0.40 10*3/mm3 08/10/2023 9:50 PM EST [facility] Basophils, Absolute 0.03 0.00 - 0.20 10*3/mm3 08/10/2023 9:50 PM EST [facility] Immature Grans, Absolute 0.17(H) 0.00 - 0.05 10*3/mm3 08/10/2023 9:50 PM EST [facility] nRBC 0.0 0.0 - 0.2 /100 WBC 08/10/2023 9:50 PM EST [facility] Blood Venipuncture / Unknown 08/10/2023 9:30 PM EST 08/10/2023 9:43 PM EST Danya Garcia MD LAB BLOOD ORDERABLES Final Re sult [facility]
[address] [place] [address], * ECG 12 Lead Chest Pain (08/10/2023 8:31 PM EST) QT Interval 356 ms ECG QTC Interval 454 ms ECG 08/10/2023 8:31 PM EST 08/11/2023 9:02 AM EST Narrative ECG - 08/11/2023 9:02 AM EST Test Reason : Chest Pain Blood Pressure : ?? */* ?? mmHG Vent. Rate : ??98 BPM ? Atrial Rate : ??98 BPM ?? P-R Int : 312 ms ?QRS Dur : 110 ms ?QT Int : 356 ms ? P-R-T Axes : ??48 ??52 ??79 degrees ?? QTc Int : 454 ms Sinus rhythm with marked sinus arrhythmia with 1st degree AV block Nonspecific ST and T wave abnormality Otherwise normal ECG When compared with ECG of 03-MAY-2020 05:07, LA interval has increased Minimal criteria for Inferior infarct are no longer present Nonspecific T wave abnormality no longer evident in Inferior leads Nonspecific T wave abnormality no longer evident in Anterior leads Confirmed by DANYA GARCIA ([id number]) on 08/11/2023 9:02:02 AM Referred By: ?Confirmed By: DANYA GARCIA Procedure Note Danya Garcia MD - 08/11/2023 Test Reason : Chest Pain Blood Pressure : */* mmHG Vent. Rate : 98 BPM Atrial Rate : 98 BPM P-R Int : 312 ms QRS Dur : 110 ms QT Int : 356 ms P-R-T Axes : 48 52 79 degrees QTc Int : 454 ms Sinus rhythm with marked sinus arrhythmia with 1st degree AV block Nonspecific ST and T wave abnormality Otherwise normal ECG When compared with ECG of 03-MAY-2020 05:07, LA interval has increased Minimal criteria for Inferior infarct are no longer present Nonspecific T wave abnormality no longer evident in Inferior leads Nonspecific T wave abnormality no longer evident in Anterior leads Confirmed by DANYA GARCIA ([id number]) on 08/11/2023 9:02:02 AM Referred By: Confirmed By: DANYA GARCIA us Danya Garcia MD ECG ORDERABLES Final Result ECG documented in this encounter Visit Diagnoses Diagnosis Hyperkalemia- Primary Hyperpotassemia Cellulitis of left forearm Complication of AV dialysis fistula, initial encounter End-stage renal disease on hemodialysis Left forearm pain Hyperkalemia Hyperpotassemia History of liver transplant Liver replaced by transplant Immunosuppression Type 2 diabetes mellitus ESRD (end stage renal disease) End stage renal disease SAL (nonalcoholic steatohepatitis) Other chronic nonalcoholic liver disease AVF (arteriovenous fistula) Arteriovenous fistula, acquired Malfunction of arteriovenous dialysis fistula documented in this encounter Admitting Diagnoses Diagnosis Hyperkalemia Hyperpotassemia documented in this encounter Administered Medications Inactive Administered Medications - up to 3 most recent administrations Medication Order MAR Action Action Date Dose Rate Site acetaminophen (TYLENOL) 160 MG/5ML oral solution 650 mg 650 mg, Oral, Every 4 Hours PRN, Mild Pain, Starting on Mon08/11/23 at 1017, If given for fever, use fever parameter: [...] = Pain Score of 7-10, CPOT 5-8 acetaminophen (TYLENOL) suppository 650 mg 650 mg, Rectal, Every 4 Hours PRN, Mild Pain, Starting on Mon08/11/23 at 1017, If given for fever, use fever parameter: [...] = Pain Score of 7-10, CPOT 5-8 acetaminophen (TYLENOL) tablet 650 mg 650 mg, Oral, Every 4 Hours PRN, Mild Pain, Starting on Mon08/11/23 at 1017, If given for fever, use fever parameter: [...] Pain Score of 7-10, CPOT 5-8 Given 08/11/2023 10:19 PM EST 650 mg albumin human 25 % IV SOLN 12.5 g 12.5 g, Intravenous, Administer over 30 Minutes, As Needed, Hypotension During Dialysis, Starting on 08/12/23 at 1125, For 4 doses, Maintain SBP Greater Than 90 During Dialysis. May repeat x 3 doses (4 doses total), Indications: Hemodialysis ProcedureIndications:Hemodialysis Procedure New Bag 08/12/2023 11:25 AM EST 25 g ALPRAZolam (XANAX) tablet 1 mg 1 mg, Oral, Daily, First dose on Mon08/11/23 at 1115, {MICHELE} Caution: Look alike/sound alike drug alert. Avoid grapefruit juice Given 08/12/2023 12:39 PM EST 1 mg aspirin chewable tablet 81 mg 81 mg, Oral, Daily, First dose on Mon08/11/23 at 1115, Herbal/drug interaction: Avoid use with ginkgo biloba. [...] Pain Score of 7-10, CPOT 5-8 Given 08/14/2023 8:39 AM EST 81 mg Given 08/13/2023 9:15 AM EST 81 mg Given 08/12/2023 12:38 PM EST 81 mg bisacodyl (DULCOLAX) EC tablet 5 mg 5 mg, Oral, Daily PRN, Constipation, Use if polyethylene glycol is ineffective, Starting on Mon08/11/23 at 1017, Use if no bowel movement after 12 hours. Swallow whole. Do not crush, split, or chew tablet. bisacodyl (DULCOLAX) suppository 10 mg 10 mg, Rectal, Daily PRN, Constipation, Use if bisacodyl oral is ineffective, Starting on Mon08/11/23 at 1017, Use if no bowel movement after 12 hours. Hold for diarrhea calcium gluconate 1000 Mg/50ml 0.675% NaCl IV SOLN 1,000 mg, Intravenous, Administer over 15 Minutes, Once, On Mon08/11/23 at 0213, For 1 dose New Bag 08/11/2023 2:25 AM EST 1,000 mg carBAMazepine (TEGretol) tablet 200 mg 200 mg, Oral, Nightly, First dose on Mon08/12/23 at 2100, Group 1 (Yellow) Hazardous Drug - See Handling Guide Given 08/13/2023 10:57 PM EST 200 mg Given 08/12/2023 8:20 PM EST 200 mg cefuroxime (CEFTIN) tablet 250 mg 250 mg, Oral, Every 12 Hours Scheduled, First dose on Mon08/13/23 at 2100, For 5 days, Mucous membrane irritant. Do not crush or chew tablet or capsule unless administered through a feeding tube. Do not crush. Product has bad taste for patient. (May be crushed if given via tube)., Indications: Skin and Soft Tissue InfectionIndications:Skin and Soft Tissue Infection Given 08/14/2023 8:39 AM EST 250 mg Given 08/13/2023 10:49 PM EST 250 mg cycloSPORINE modified (NEORAL) capsule 100 mg 100 mg, Oral, 2 Times Daily, First dose on Mon08/11/23 at 0705, Group 1 (Yellow) Hazardous Drug - See Handling Guide Given 08/14/2023 8:40 AM EST 100 mg Given 08/13/2023 10:54 PM EST 100 mg Given 08/13/2023 10:24 AM EST 100 mg dextrose (D50W) (25 g/50 mL) IV injection 25 g 25 g, Intravenous, Once, On Mon08/11/23 at 0213, For 1 dose, Administer IV for Hyperkalemia Given 08/11/2023 2:18 AM EST 25 g diphenhydrAMINE (BENADRYL) capsule 50 mg 50 mg, Oral, Every 6 Hours PRN, Itching, Starting on Mon08/11/23 at 1109, Caution: Look alike/sound alike drug alert. This med may be ordered in other forms and routes. Before giving verify the last time the drug was given by any route/form. Given 08/13/2023 10:49 PM EST 50 mg Given 08/13/2023 4:40 PM EST 50 mg Given 08/11/2023 10:18 PM EST 50 mg diphenhydrAMINE (BENADRYL) injection As Needed, Starting on Mon08/11/23 at 1320 Given 08/11/2023 1:20 PM EST 25 mg doxycycline (MONODOX) capsule 100 mg 100 mg, Oral, Every 12 Hours Scheduled, First dose on Mon08/13/23 at 2100, For 5 days, Take with food if GI upset occurs. Administer 2 hours before or 4 hours after administration of oral polyvalent cations (calcium, zinc, magnesium, iron), Indications: Skin and Soft Tissue InfectionIndications:Skin and Soft Tissue Infection Given 08/14/2023 8:38 AM EST 100 mg Given 08/13/2023 10:49 PM EST 100 mg fentaNYL citrate (PF) (SUBLIMAZE) injection 50 mcg 50 mcg, Intravenous, Once, On Mon08/11/23 at 0703, For 1 dose, Use filter needle to withdraw dose from ampule. If given for pain, use the following pain scale: Mild Pain = Pain Score of 1-3, CPOT 1-2 Moderate Pain = Pain Score of 4-6, CPOT 3-4 Severe Pain = Pain Score of 7-10, CPOT 5-8 Given 08/11/2023 7:03 AM EST 50 mcg fentaNYL citrate (PF) (SUBLIMAZE) injection Intravenous, As Needed, Starting on Mon08/11/23 at 1317 Given 08/11/2023 3:17 PM EST 25 mcg Given 08/11/2023 1:17 PM EST 25 mcg gabapentin (NEURONTIN) capsule 400 mg 400 mg, Oral, Nightly, First dose on Mon08/11/23 at 2100, {MICHELE} Given 08/13/2023 10:50 PM EST 400 mg Given 08/12/2023 8:18 PM EST 400 mg Given 08/11/2023 9:04 PM EST 400 mg heparin (porcine) 1000 UNIT/ML injection - ADS Override Pull Starting on Mon08/11/23 at 1521, For 1 dose, Created by [email or web address] fritz Given 08/11/2023 3:59 PM EST 4,500 Unit s heparin (porcine) injection 2,000 Units 2,000 Units, Intracatheter, As Needed, HD, Starting on Mon08/11/23 at 1819, For 10 days, Indications: HDIndications:HD Given 08/11/2023 6:42 PM EST 2,000 Units hydrALAZINE (APRESOLINE) tablet 100 mg 100 mg, Oral, 3 Times Daily, First dose on Mon08/11/23 at 1600, Hold for SBP less than 100, DBP less than 60 Caution: Look alike/sound alike drug alert Given 08/14/2023 8:39 AM EST 100 mg Given 08/13/2023 10:49 PM EST 100 mg Given 08/13/2023 4:40 PM EST 100 mg hydrALAZINE (APRESOLINE) tablet 50 mg 50 mg, Oral, Once, On Mon08/11/23 at 0704, For 1 dose, Hold for SBP less than 100, DBP less than 60 Caution: Look alike/sound alike drug alert Given 08/11/2023 7:01 AM EST 50 mg HYDROcodone-acetaminophen (NORCO) 5-325 MG per tablet 1 tablet 1 tablet, Oral, Once, On Bobbi 08/10/23 at 2305, For 1 dose, Based on patient request [...] Pain Score of 7-10, CPOT 5-8 Given 08/10/2023 11:18 PM EST 1 tablet HYDROcodone-acetaminophen (NORCO) 5-325 MG per tablet 1 tablet 1 tablet, Oral, Once, On Mon08/11/23 at 0137, For 1 dose, Based on patient request [...] Pain Score of 7-10, CPOT 5-8 Given 08/11/2023 1:36 AM EST 1 tablet HYDROcodone-acetaminophen (NORCO) 7.5-325 MG per tablet 1 tablet 1 tablet, Oral, Every 4 Hours PRN, Moderate Pain, Starting on Mon08/11/23 at 0804, Based on patient request - if ordered [...] Pain Score of 7-10, CPOT 5-8 Given 08/12/2023 8:19 PM EST 1 tablet Given 08/11/2023 10:19 PM EST 1 tablet Given 08/11/2023 8:22 AM EST 1 tablet HYDROmorphone (DILAUDID) injection 0.5 mg 0.5 mg, Intravenous, Every 2 Hours PRN, Severe Pain, Starting on Mon08/11/23 at 0803, Based on patient request - if ordered for moderate or severe pain, provider allows for administration of a medication prescribed for a lower pain scale. If given for pain, use the following pain scale: Mild Pain = Pain Score of 1-3, CPOT 1-2 Moderate Pain = Pain Score of 4-6, CPOT 3-4 Severe Pain = Pain Score of 7-10, CPOT 5-8 Given 08/14/2023 2:54 AM EST 0.5 mg Given 08/14/2023 12:31 AM EST 0.5 mg Given 08/13/2023 9:06 PM EST 0.5 mg insulin detemir (LEVEMIR) injection 10 Units 10 Units, Subcutaneous, Nightly, First dose on Mon08/11/23 at 2100, Do not hold basal insulin without an order. Consider requesting a dose edit, if needed. {BKC} Given 08/13/2023 10:49 PM EST 10 Units Left Lower Abdomen Given 08/12/2023 8:22 PM EST 10 Units Ri ght Lower Abdomen Given 08/11/2023 8:58 PM EST 10 Units Ri ght Lower Abdomen Insulin Lispro (humaLOG) injection 2-7 Units 2-7 Units, Subcutaneous, 4 Times Daily Before Meals & Nightly, First dose on Mon08/11/23 at 1130, Correction Insulin - Low Dose - Total [...] Caution: Look alike/sound alike drug alert{BKC} Given 08/14/2023 8:36 AM EST 2 Units Right Lower Abdomen Given 08/13/2023 10:48 PM EST 2 Units L eft Lateral Thigh Given 08/13/2023 4:39 PM EST 2 Units Le ft Upper Abdomen insulin regular (humuLIN R,novoLIN R) injection 5 Units 5 Units, Intravenous, Once, On Mon08/11/23 at 0213, For 1 dose, Administer IV for Hyperkalemia {BKC} Caution: Look alike/sound alike drug alert{BKC} Given 08/11/2023 2:21 AM EST 5 Units iopamidol (ISOVUE-300) 61 % injection 25 mL 25 mL, Intravenous, Once in Imaging, On Mon08/11/23 at 1615, For 1 dose Given 08/11/2023 3:27 PM EST 25 mL lidocaine (XYLOCAINE) 1 % injection 8 mL 8 mL, Subcutaneous, Once, On Mon08/11/23 at 1527, For 1 dose Given 08/11/2023 3:27 PM EST 8 mL Other lidocaine 1% - EPINEPHrine [id number] (XYLOCAINE W/EPI) 1 %-[id number] injection 8 mL 8 mL, Infiltration, Once, On Mon08/11/23 at 1615, For 1 dose Given 08/11/2023 3:26 PM EST 8 mL midazolam (VERSED) injection Intravenous, As Needed, Starting on Mon08/11/23 at 1317 Given 08/11/2023 3:17 PM EST 0.5 mg Given 08/11/2023 1:17 PM EST 0.5 mg mycophenolate (CELLCEPT) capsule 250 mg 250 mg, Oral, Every 12 Hours Scheduled, First dose on Mon08/11/23 at 0703, Take on an empty stomach Group 1 (Yellow) Hazardous Drug - See Handling Guide Given 08/14/2023 8:39 AM EST 250 mg Given 08/13/2023 10:56 PM EST 250 mg Given 08/13/2023 9:18 AM EST 250 mg NIFEdipine XL (PROCARDIA XL) 24 hr tablet 90 mg 90 mg, Oral, Every 24 Hours Scheduled, First dose on Mon08/11/23 at 0703, Hold for SBP less than 100, DBP less than 60 Caution: Look alike/sound alike drug alert. Avoid grapefruit juice. Swallow whole. Do not crush, split or chew. Given 08/14/2023 8:39 AM EST 90 mg Given 08/11/2023 8:12 AM EST 90 mg ondansetron (ZOFRAN) injection 4 mg 4 mg, Intravenous, Every 6 Hours PRN, Nausea, Vomiting, Starting on Mon08/11/23 at 1017, If BOTH ondansetron (ZOFRAN) and promethazine (PHENERGAN) are ordered use ondansetron first and THEN promethazine IF ondansetron is ineffective. Given 08/14/2023 5:57 AM EST 4 mg Given 08/13/2023 6:55 PM EST 4 mg Given 08/13/2023 11:28 AM EST 4 mg ondansetron ODT (ZOFRAN-ODT) disintegrating tablet 4 mg 4 mg, Oral, Once, On Bobbi 08/10/23 at 2305, For 1 dose, If multiple N/V medications ordered, use in the following order: Ondansetron, Prochlorperazine, Promethazine. Use PO unless patient refuses or patient unable to swallow. Place on tongue and allow to dissolve. Given 08/10/2023 11:20 PM EST 4 mg ondansetron ODT (ZOFRAN-ODT) disintegrating tablet 4 mg 4 mg, Oral, Every 6 Hours PRN, Nausea, Vomiting, Starting on Mon08/11/23 at 1017, If BOTH ondansetron (ZOFRAN) and promethazine (PHENERGAN) are ordered use ondansetron first and THEN promethazine IF ondansetron is ineffective. Place on tongue and allow to dissolve. Given 08/11/2023 10:19 PM EST 4 mg piperacillin-tazobactam (ZOSYN) 3.375 g in iso-osmotic dextrose 50 ml (premix) 3.375 g, Intravenous, Administer over 30 Minutes, Once, On Mon08/11/23 at 0702, For 1 dose, Refrigerate, Indications: Skin and Soft Tissue InfectionIndications:Skin and Soft Tissue Infection New Bag 08/11/2023 7:03 AM EST 3.375 g piperacillin-tazobactam (ZOSYN) 3.375 g in iso-osmotic dextrose 50 ml (premix) 3.375 g, Intravenous, Administer over 4 Hours, Every 12 Hours, First dose (after last reorder) on Mon08/11/23 at 1800, For 7 days, Refrigerate, Indications: Bacteremia, Skin and Soft Tissue InfectionIndications:Bacteremia,Skin and Soft Tissue Infection New Bag 08/13/2023 6:24 AM EST 3.375 g New Bag 08/12/2023 5:50 PM EST 3.375 g New Bag 08/12/2023 10:16 AM EST 3.375 g piperacillin-tazobactam (ZOSYN) 4.5 g in iso-osmotic dextrose 100 mL IVPB (premix) 4.5 g, Intravenous, Administer over 30 Minutes, Once, On Bobbi 08/10/23 at 2215, For 1 dose, Refrigerate, Indications: SepsisIndications:Sepsis New Bag 08/10/2023 9:52 PM EST 4.5 g polyethylene glycol (MIRALAX) packet 17 g 17 g, Oral, Daily PRN, Constipation, Use if senna-docusate is ineffective, Starting on Mon08/11/23 at 1017, Use if no bowel movement after 12 hours. Mix in 6-8 ounces of water. Use 4-8 ounces of water, tea, or juice for each 17 gram dose. Polyvinyl Alcohol-Povidone PF (HYPOTEARS) 1.4-0.6 % ophthalmic solution 2 drop 2 drop, Both Eyes, Every 1 Hour PRN, Dry Eyes, Starting on Mon08/14/23 at 0141 Given 08/14/2023 2:43 AM EST 2 drops prochlorperazine (COMPAZINE) injection 5 mg 5 mg, Intravenous, Every 6 Hours PRN, Nausea, Vomiting, Starting on 08/13/23 at 1407, If multiple N/V medications ordered, use in the following order: Ondansetron, Prochlorperazine, Promethazine. Use PO unless patient refuses or patient unable to swallow. prochlorperazine (COMPAZINE) suppository 25 mg 25 mg, Rectal, Every 12 Hours PRN, Nausea, Vomiting, Starting on 08/13/23 at 1407, If multiple N/V medications ordered, use in the following order: Ondansetron, Prochlorperazine, Promethazine. Use PO unless patient refuses or patient unable to swallow. prochlorperazine (COMPAZINE) tablet 5 mg 5 mg, Oral, Every 6 Hours PRN, Nausea, Vomiting, Starting on 08/13/23 at 1407, If multiple N/V medications ordered, use in the following order: Ondansetron, Prochlorperazine, Promethazine. Use PO unless patient refuses or patient unable to swallow. sennosides-docusate (PERICOLACE) 8.6-50 MG per tablet 2 tablet 2 tablet, Oral, 2 Times Daily, First dose on Mon08/11/23 at 1115, HOLD MEDICATION IF PATIENT HAS HAD BOWEL MOVEMENT. Start bowel management regimen if patient has not had a bowel movement after 12 hours. Given 08/14/2023 8:39 AM EST 2 tablets Given 08/13/2023 10:53 PM EST 2 tablets Given 08/13/2023 9:17 AM EST 2 tablets sodium bicarbonate injection 8.4% 50 mEq 50 mEq, Intravenous, Once, On Mon08/11/23 at 0213, For 1 dose, Indications: Systemic AcidosisIndications:Systemic Acidosis Given 08/11/2023 2:19 AM EST 50 mEq sodium chloride 0.9 % flush 10 mL 10 mL, Intravenous, As Needed, Line Care, Starting on Bobbi 08/10/23 at 2027 Given 08/11/2023 2:24 AM EST 10 mL sodium chloride 0.9 % flush 10 mL 10 mL, Intravenous, Every 12 Hours Scheduled, First dose on Mon08/11/23 at 1115 Given 08/14/2023 8:44 AM EST 10 mL Given 08/13/2023 10:50 PM EST 10 mL Given 08/13/2023 9:20 AM EST 10 mL sodium zirconium cyclosilicate (LOKELMA) pack 10 g 10 g, Oral, Once, On Mon08/11/23 at 0213, For 1 dose, Empty contents of packet into drinking glass and mix with 3 or more tablespoons of water. Stir well and give to patient to drink immediately. If powder remains add additional water and stir. Given 08/11/2023 2:24 AM EST 10 g terazosin (HYTRIN) capsule 5 mg 5 mg, Oral, Nightly, First dose on Mon08/11/23 at 2100 Given 08/11/2023 9:04 PM EST 5 mg vancomycin 2750 mg/500 mL 0.9% NS IVPB ([facility]) 2,750 mg (rounded from 2,720 mg = 20 mg/kg ? 136 kg), Intravenous, Administer over 165 Minutes, Once, On Bobbi 08/10/23 at 2245, For 1 dose, Indications: SepsisIndications:Sepsis New Bag 08/10/2023 10:46 PM EST 2,750 mg documented in this encounter Active and Recently Administered Medications Times are shown in EST. Scheduled Medication Order 08/12/2023 08/13/2023 08/14/2023 ALPRAZolam (XANAX) tablet 1 mg 1 mg, Oral, Daily, First dose on Mon08/11/23 at 1115, {MICHELE} Caution: Look alike/sound alike drug alert. Avoid grapefruit juice 1239 (Given - Provider: Ivette Pérez RN - Comment: Client in dialysis for his scheduled treatment) 0851 (Not Given - Provider: Ivette Pérez RN - Reason: Patient/family refused - Comment: Client refused to take this medication this am) 0838 (Not Given - Provider: Darling Demarco RN - Reason: Patient/family refused) aspirin chewable tablet 81 mg 81 mg, Oral, Daily, First dose on Mon08/11/23 at 1115, Herbal/drug interaction: Avoid use with ginkgo biloba. [...] = Pain Score of 7-10, CPOT 5-8 1238 (Given - Provider: Ivette Pérez RN - Comment: Client was in dialysis for scheduled treatment) 0915 (Given - Provider: Ivette Pérez RN) 0839 (Given - Provider: Darling Demarco, JANA) calcium gluconate 1000 Mg/50ml 0.675% NaCl IV SOLN 1,000 mg, Intravenous, Administer over 15 Minutes, Once, On Mon08/11/23 at 1115, For 1 dose carBAMazepine (TEGretol) tablet 200 mg 200 mg, Oral, Once, On Mon08/11/23 at 0705, For 1 dose, Group 1 (Yellow) Hazardous Drug - See Handling Guide carBAMazepine (TEGretol) tablet 200 mg 200 mg, Oral, Nightly, First dose on Mon08/12/23 at 2100, Group 1 (Yellow) Hazardous Drug - See Handling Guide 2019 (Given - Provider: Marina Wolf RN) 225 (Given - Provider: Tito Golden RN) cefuroxime (CEFTIN) tablet 250 mg 250 mg, Oral, Every 12 Hours Scheduled, First dose on Mon08/13/23 at 2100, For 5 days, Mucous membrane irritant. Do not crush or chew tablet or capsule unless administered through a feeding tube. Do not crush. Product has bad taste for patient. (May be crushed if given via tube)., Indications: Skin and Soft Tissue Infection 5835 (Given - Provider: Tito Golden RN) 0839 (Given - Provider: Darling Demarco, JANA) cholecalciferol (VITAMIN D3) tablet 5,000 Units 5,000 Units, Oral, 2 Times Weekly (Once per day on Monday), First dose on Mon08/15/23 at 0900 cycloSPORINE modified (NEORAL) capsule 100 mg 100 mg, Oral, 2 Times Daily, First dose on Mon08/11/23 at 0705, Group 1 (Yellow) Hazardous Drug - See Handling Guide 1252 (Given - Provider: Ivette Pérez RN - Comment: Lars was in Dialysis for his scheduled treatment.)2024 (Given - Provider: Marina Wolf, JANA) 1024 (Given - Provider: Ivette Pérez RN - Comment: contacted pharmacy)225 (Given - Provider: Tito Golden RN) 0840 (Given - Provider: Darling Demarco, JANA) doxycycline (MONODOX) capsule 100 mg 100 mg, Oral, Every 12 Hours Scheduled, First dose on Mon08/13/23 at 2100, For 5 days, Take with food if GI upset occurs. Administer 2 hours before or 4 hours after administration of oral polyvalent cations (calcium, zinc, magnesium, iron), Indications: Skin and Soft Tissue Infection 224 (Given - Provider: Tito Golden RN) 0838 (Given - Provider: Darling Demarco, JANA) gabapentin (NEURONTIN) capsule 400 mg 400 mg, Oral, Nightly, First dose on Mon08/11/23 at 2100, {MICHELE} 2017 (Given - Provider: Marina Wolf RN) 225 (Given - Provider: Tito Golden RN) heparin (porcine) 5000 UNIT/ML injection 5,000 Units 5,000 Units, Subcutaneous, Every 8 Hours Scheduled, First dose on Mon08/11/23 at 1400, Indications: VTE Prophylaxis 0613 (Not Given - Provider: Maile Eng RN - Reason: Patient/family refused)1447 (Not Given - Provider: Ivette Pérez RN - Reason: Patient/family refused - Comment: client refused,states that he dioes not need this medication)2217 (Not Given - Provider: Marina Wolf RN - Reason: Patient/family refused) 0609 (Not Given - Provider: Marina Wolf RN - Reason: Patient/family refused)1438 (Not Given - Provider: Ivette Pérez RN - Reason: Patient/family refused - Comment: Client states that he did not want to take this medication,staff nurese reinforced the importance, but client still refused.)2248 (Not Given - Provider: Tito Golden, JANA - Reason: Patient/family refused) 0533 (Not Given - Provider: Tito Golden, JANA - Reason: Patient/family refused) hydrALAZINE (APRESOLINE) tablet 100 mg 100 mg, Oral, 3 Times Daily, First dose on Mon08/11/23 at 1600, Hold for SBP less than 100, DBP less than 60 Caution: Look alike/sound alike drug alert 1208 (Not Given - Provider: Ivette Pérez, RN - Reason: Patient not available - Comment: Client in dialysis for scheduled treatment, back on unit at 1145, bp reading 116/80 .)1639 (Given - Provider: Ivette Pérez, RN)2018 (Not Given - Provider: Marina Wolf RN - Reason: Patient/family refused) 0915 (Given - Provider: Ivette Pérez, RN)1640 (Given - Provider: Ivette Pérez, RN)224 (Given - Provider: Tito Golden, JANA) 0839 (Given - Provider: Darling Demarco RN) insulin detemir (LEVEMIR) injection 10 Units 10 Units, Subcutaneous, Nightly, First dose on Mon08/11/23 at 2100, Do not hold basal insulin without an order. Consider requesting a dose edit, if needed. {BKC} 2021 (Given - Provider: Marina Wolf, JANA) 2248 (Given - Provider: Tito Golden, RN) Insulin Lispro (humaLOG) injection 2-7 Units 2-7 Units, Subcutaneous, 4 Times Daily Before Meals & Nightly, First dose on Mon08/11/23 at 1130, Correction Insulin - Low Dose - Total [...] {BKC} Caution: Look alike/sound alike drug alert{BKC} 1229 (Not Given - Provider: Ivette Pérez RN - Reason: Order parameters not met - Comment: Clients blood glucose reading was 148mg/dl.)1231 (Not Given - Provider: Ivette Pérez RN - Reason: Patient not available - Comment: Client is dialysis)1749 (Given - Provider: Ivette Pérez RN - Comment: blood glucose reading was 195mg/dl)2218 (Not Given - Provider: Marina Wolf RN - Reason: Patient/family refused - Comment: stated he drops fast) 0734 (Not Given - Provider: Ivette Pérez RN - Reason: Order parameters not met - Comment: Blood glucose reading is 145mg/dl.)1127 (Given - Provider: Ivette Pérez RN - Comment: blood glucose reading was 171mg/dl.)1639 (Given - Provider: Ivette Pérez RN - Comment: Clients blood glucose reading was 173mg/dl.)2248 (Given - Provider: Tito Golden, JANA) 0836 (Given - Provider: Darling Demarco, JANA) lisinopril (PRINIVIL,ZESTRIL) tablet 40 mg 40 mg, Oral, Daily, First dose on Mon08/11/23 at 1115, Hold for SBP less than 100, DBP less than 60 1242 (Not Given - Provider: Ivette éPrez RN - Reason: Patient/family refused - Comment: Client states taht he does not atke this medication amymore) 0852 (Not Given - Provider: Ivette Pérez RN - Reason: Patient/family refused - Comment: Client states that he does not take this medication at all.) 0838 (Not Given - Provider: Darling Demarco, JANA - Reason: Patient/family refused) methocarbamol (ROBAXIN) tablet 500 mg 500 mg, Oral, Once, On Mon08/11/23 at 1115, For 1 dose mycophenolate (CELLCEPT) capsule 250 mg 250 mg, Oral, Every 12 Hours Scheduled, First dose on Mon08/11/23 at 0703, Take on an empty stomach Group 1 (Yellow) Hazardous Drug - See Handling Guide 1251 (Given - Provider: Ivette Pérez RN - Comment: Client was in dialysis elissa his scheduled treatment)2019 (Given - Provider: Marina Wolf, JANA) 09 (Given - Provider: Ivette Pérez RN)2256 (Given - Provider: Tito Golden, RN) 0839 (Given - Provider: Darling Demarco, RN) NIFEdipine XL (PROCARDIA XL) 24 hr tablet 90 mg 90 mg, Oral, Every 24 Hours Scheduled, First dose on Mon08/11/23 at 0703, Hold for SBP less than 100, DBP less than 60 Caution: Look alike/sound alike drug alert. Avoid grapefruit juice. Swallow whole. Do not crush, split or chew. 1244 (Not Given - Provider: Ivette Pérez RN - Reason: Patient/family refused - Comment: Client did want to take this medication, due to just having dialysis and bp reading low, 116/80) 0853 (Not Given - Provider: Ivette Pérez, JANA - Reason: Patient/family refused - Comment: Client states that he did not want to take this medication this am.Educated client on the importance of taking his medications as prescribed.) 0839 (Given - Provider: Darling Demarco, RN) piperacillin-tazobactam (ZOSYN) 3.375 g in iso-osmotic dextrose 50 ml (premix) (CANCELED) 3.375 g, Intravenous, Administer over 4 Hours, Every 12 Hours, First dose (after last reorder) on Mon08/11/23 at 1800, For 7 days, Refrigerate, Indications: Bacteremia, Skin and Soft Tissue Infection 1016 (New Bag - Provider: Anmol Polanco RN - Comment: given in dialysis)1750 (New Bag - Provider: Ivette Pérez, JANA) 0624 (New Bag - Provider: Marina Wolf, JANA) sennosides-docusate (PERICOLACE) 8.6-50 MG per tablet 2 tablet(Linked Group 1) 2 tablet, Oral, 2 Times Daily, First dose on Mon08/11/23 at 1115, HOLD MEDICATION IF PATIENT HAS HAD BOWEL MOVEMENT. Start bowel management regimen if patient has not had a bowel movement after 12 hours. 1259 (Given - Provider: Ivette Pérez RN - Comment: Client was in dialysis for his scheduled treatment)2018 (Given - Provider: Marina Wolf, JANA) 0917 (Given - Provider: Ivette Pérez, JANA)2253 (Given - Provider: Tito Golden RN) 0839 (Given - Provider: Darling Demarco, JANA) sodium bicarbonate injection 8.4% 50 mEq 50 mEq, Intravenous, Once, On Mon08/11/23 at 1115, For 1 dose, Indications: Hyperkalemia sodium chloride 0.9 % flush 10 mL 10 mL, Intravenous, Every 12 Hours Scheduled, First dose on Mon08/11/23 at 1115 1246 (Given - Provider: Ivette Pérez RN - Comment: Client in dialysis for scheduled treatment)2021 (Given - Provider: Marina Wolf RN) 0920 (Given - Provider: Ivette Pérez RN)2250 (Given - Provider: Tito Golden, JANA) 0844 (Given - Provider: Darling Demarco RN) sodium zirconium cyclosilicate (LOKELMA) pack 10 g 10 g, Oral, Once, On Mon08/11/23 at 1200, For 1 dose, Empty contents of packet into drinking glass and mix with 3 or more tablespoons of water. Stir well and give to patient to drink immediately. If powder remains add additional water and stir. terazosin (HYTRIN) capsule 5 mg 5 mg, Oral, Nightly, First dose on Mon08/11/23 at 2100 2017 (Not Given - Provider: Marina Wolf RN - Reason: Patient/family refused) 224 (Not Given - Provider: Tito Golden RN - Reason: Patient/family refused) PRN Medication Order 08/12/2023 08/13/2023 08/14/2023 acetaminophen (TYLENOL) 160 MG/5ML oral solution 650 mg(Linked Group 2) 650 mg, Oral, Every 4 Hours PRN, Mild Pain, Starting on Mon08/11/23 at 1017, If given for fever, use fever parameter: [...] = Pain Score of 7-10, CPOT 5-8 acetaminophen (TYLENOL) suppository 650 mg(Linked Group 2) 650 mg, Rectal, Every 4 Hours PRN, Mild Pain, Starting on Mon08/11/23 at 1017, If given for fever, use fever parameter: [...] = Pain Score of 7-10, CPOT 5-8 acetaminophen (TYLENOL) tablet 650 mg(Linked Group 2) 650 mg, Oral, Every 4 Hours PRN, Mild Pain, Starting on Mon08/11/23 at 1017, If given for fever, use fever parameter: [...] = Pain Score of 7-10, CPOT 5-8 albumin human 25 % IV SOLN 12.5 g () 12.5 g, Intravenous, Administer over 30 Minutes, As Needed, Hypotension During Dialysis, Starting on 08/12/23 at 1125, For 4 doses, Maintain SBP Greater Than 90 During Dialysis. May repeat x 3 doses (4 doses total), Indications: Hemodialysis Procedure 1125 (New Bag - Provider: Anmol Polanco RN) bisacodyl (DULCOLAX) EC tablet 5 mg(Linked Group 1) 5 mg, Oral, Daily PRN, Constipation, Use if polyethylene glycol is ineffective, Starting on Mon08/11/23 at 1017, Use if no bowel movement after 12 hours. Swallow whole. Do not crush, split, or chew tablet. bisacodyl (DULCOLAX) suppository 10 mg(Linked Group 1) 10 mg, Rectal, Daily PRN, Constipation, Use if bisacodyl oral is ineffective, Starting on Mon08/11/23 at 1017, Use if no bowel movement after 12 hours. Hold for diarrhea cyclobenzaprine (FLEXERIL) tablet 10 mg 10 mg, Oral, 3 Times Daily PRN, Muscle Spasms, Starting on Mon08/11/23 at 1017 2020 (Return to [facility] - Provider: Marina Wolf RN) dextrose (D50W) (25 g/50 mL) IV injection 25 g 25 g, Intravenous, Every 15 Minutes PRN, Low Blood Sugar, Blood Sugar Less Than 70, Starting on Mon08/11/23 at 1017, Blood sugar less than 70; patient has IV access - Unresponsive, NPO or Unable To Safely Swallow dextrose (GLUTOSE) oral gel 15 g 15 g, Oral, Every 15 Minutes PRN, Low Blood Sugar, Blood sugar less than 70, Starting on Mon08/11/23 at 1017, BS<70, Patient Alert, Is not NPO, Can safely swallow. diphenhydrAMINE (BENADRYL) capsule 50 mg 50 mg, Oral, Every 6 Hours PRN, Itching, Starting on Mon08/11/23 at 1109, Caution: Look alike/sound alike drug alert. This med may be ordered in other forms and routes. Before giving verify the last time the drug was given by any route/form. 1640 (Given - Provider: Ivette Pérez RN)2249 (Given - Provider: Tito Golden RN) famotidine (PEPCID) tablet 20 mg 20 mg, Oral, 2 Times Daily PRN, Heartburn, Starting on Mon08/11/23 at 1017 glucagon (GLUCAGEN) injection 1 mg 1 mg, Intramuscular, Every 15 Minutes PRN, Low Blood Sugar, Blood Glucose Less Than 70, Starting on Mon08/11/23 at 1017, Blood Glucose Less Than 70 - Patient Without IV Access - Unresponsive, NPO or Unable To Safely Swallow Reconstitute powder for injection by adding 1 mL of yeast culture operator-supplied sterile diluent or sterile water for injection to a vial containing 1 mg of the drug, to provide solutions containing 1 mg/mL. Shake vial gently to dissolve. heparin (porcine) injection 2,000 Units 2,000 Units, Intracatheter, As Needed, HD, Starting on Mon08/11/23 at 1819, For 10 days, Indications: HD HYDROcodone-acetaminophen (NORCO) 7.5-325 MG per tablet 1 tablet 1 tablet, Oral, Every 4 Hours PRN, Moderate Pain, Starting on Mon08/11/23 at 0804, Based on patient request - if ordered for moderate or severe pain, provider allows for administration of a medication prescribed for a lower pain scale. [MICHEEL] Do not exceed 4 grams of acetaminophen in a 24 hr period. Max dose of 2gm for AST/ALT greater than 120 units/L If given for pain, use the following pain scale: Mild Pain = Pain Score of 1-3, CPOT 1-2 Moderate Pain = Pain Score of 4-6, CPOT 3-4 Severe Pain = Pain Score of 7-10, CPOT 5-8 2018 (Given - Provider: Marina Wolf RN) 0840 (Not Given - Provider: Darling Demarco RN - Reason: Patient/family refused - Comment: pt states that this medication doesnt really help and he does not want anything for his pain at this moment) HYDROmorphone (DILAUDID) injection 0.5 mg 0.5 mg, Intravenous, Every 2 Hours PRN, Severe Pain, Starting on Mon08/11/23 at 0803, Based on patient request - if ordered for moderate or severe pain, provider allows for administration of a medication prescribed for a lower pain scale. If given for pain, use the following pain scale: Mild Pain = Pain Score of 1-3, CPOT 1-2 Moderate Pain = Pain Score of 4-6, CPOT 3-4 Severe Pain = Pain Score of 7-10, CPOT 5-8 1241 (Given - Provider: Ivette Pérez RN - Comment: neck pain from rt IJ catheter placement)2035 (Given - Provider: Marina Wolf RN) 010 (Given - Provider: Marina Wolf RN)1026 (Given - Provider: Ivette Pérez RN - Comment: rt sided catheter pain and left avf pain)165 (Given - Provider: Ivette Pérez RN - Comment: rt catheter site and left avf access)210 (Given - Provider: Tito Golden RN) 0031 (Given - Provider: Tito Golden RN)0254 (Given - Provider: Tito Golden, RN) ondansetron (ZOFRAN) injection 4 mg(Linked Group 3) 4 mg, Intravenous, Every 6 Hours PRN, Nausea, Vomiting, Starting on Mon08/11/23 at 1017, If BOTH ondansetron (ZOFRAN) and promethazine (PHENERGAN) are ordered use ondansetron first and THEN promethazine IF ondansetron is ineffective. 1456 (Given - Provider: Ivette Pérez RN) 1128 (Given - Provider: Ivette Pérez RN)1855 (Given - Provider: Ivette Pérez RN) 0021 (Not Given: See Alt - Provider: Tito Golden RN)0557 (Given - Provider: Tito Golden RN) ondansetron ODT (ZOFRAN-ODT) disintegrating tablet 4 mg(Linked Group 3) 4 mg, Oral, Every 6 Hours PRN, Nausea, Vomiting, Starting on Mon08/11/23 at 1017, If BOTH ondansetron (ZOFRAN) and promethazine (PHENERGAN) are ordered use ondansetron first and THEN promethazine IF ondansetron is ineffective. Place on tongue and allow to dissolve. 1456 (Not Given: See Alt - Provider: Ivette Pérez RN) 1128 (Not Given: See Alt - Provider: Ivette Pérez RN)1855 (Not Given: See Alt - Provider: Ivette Pérez RN) 0021 (Return to Cabinet - Provider: Tito Golden RN)0557 (Not Given: See Alt - Provider: Tito Golden RN) polyethylene glycol (MIRALAX) packet 17 g(Linked Group 1) 17 g, Oral, Daily PRN, Constipation, Use if senna-docusate is ineffective, Starting on Mon08/11/23 at 1017, Use if no bowel movement after 12 hours. Mix in 6-8 ounces of water. Use 4-8 ounces of water, tea, or juice for each 17 gram dose. Polyvinyl Alcohol-Povidone PF (HYPOTEARS) 1.4-0.6 % ophthalmic solution 2 drop 2 drop, Both Eyes, Every 1 Hour PRN, Dry Eyes, Starting on Mon08/14/23 at 0141 0243 (Given - Provider: Tito Golden RN) prochlorperazine (COMPAZINE) injection 5 mg(Linked Group 4) 5 mg, Intravenous, Every 6 Hours PRN, Nausea, Vomiting, Starting on 08/13/23 at 1407, If multiple N/V medications ordered, use in the following order: Ondansetron, Prochlorperazine, Promethazine. Use PO unless patient refuses or patient unable to swallow. prochlorperazine (COMPAZINE) suppository 25 mg(Linked Group 4) 25 mg, Rectal, Every 12 Hours PRN, Nausea, Vomiting, Starting on 08/13/23 at 1407, If multiple N/V medications ordered, use in the following order: Ondansetron, Prochlorperazine, Promethazine. Use PO unless patient refuses or patient unable to swallow. prochlorperazine (COMPAZINE) tablet 5 mg(Linked Group 4) 5 mg, Oral, Every 6 Hours PRN, Nausea, Vomiting, Starting on 08/13/23 at 1407, If multiple N/V medications ordered, use in the following order: Ondansetron, Prochlorperazine, Promethazine. Use PO unless patient refuses or patient unable to swallow. sodium chloride 0.9 % flush 1-10 mL 1-10 mL, Intravenous, As Needed, Line Care, Starting on Mon08/11/23 at 1017 sodium chloride 0.9 % flush 10 mL 10 mL, Intravenous, As Needed, Line Care, Starting on Mon08/10/23 at 2027 sodium chloride 0.9 % infusion 40 mL 40 mL, Intravenous, at 100 mL/hr, As Needed, Line Care, Starting on Mon08/11/23 at 1017, Following administration of an IV intermittent medication, flush line with 40mL NS at 100mL/hr. Linked Groups Order Group 1: sennosides-docusate (PERICOLACE) 8.6-50 MG per tablet 2 tabletJump to med 2 tablet, Oral, 2 Times Daily, First dose on Mon08/11/23 at 1115, HOLD MEDICATION IF PATIENT HAS HAD BOWEL MOVEMENT. Start bowel management regimen if patient has not had a bowel movement after 12 hours. And polyethylene glycol (MIRALAX) packet 17 gJump to med 17 g, Oral, Daily PRN, Constipation, Use if senna-docusate is ineffective, Starting on Mon08/11/23 at 1017, Use if no bowel movement after 12 hours. Mix in 6-8 ounces of water. Use 4-8 ounces of water, tea, or juice for each 17 gram dose. And bisacodyl (DULCOLAX) EC tablet 5 mgJump to med 5 mg, Oral, Daily PRN, Constipation, Use if polyethylene glycol is ineffective, Starting on Mon08/11/23 at 1017, Use if no bowel movement after 12 hours. Swallow whole. Do not crush, split, or chew tablet. And bisacodyl (DULCOLAX) suppository 10 mgJump to med 10 mg, Rectal, Daily PRN, Constipation, Use if bisacodyl oral is ineffective, Starting on Mon08/11/23 at 1017, Use if no bowel movement after 12 hours. Hold for diarrhea Group 2: acetaminophen (TYLENOL) tablet 650 mgJump to med 650 mg, Oral, Every 4 Hours PRN, Mild Pain, Starting on Mon08/11/23 at 1017, If given for fever, use fever parameter: [...] = Pain Score of 7-10, CPOT 5-8 Or acetaminophen (TYLENOL) 160 MG/5ML oral solution 650 mgJump to med 650 mg, Oral, Every 4 Hours PRN, Mild Pain, Starting on Mon08/11/23 at 1017, If given for fever, use fever parameter: [...] = Pain Score of 7-10, CPOT 5-8 Or acetaminophen (TYLENOL) suppository 650 mgJump to med 650 mg, Rectal, Every 4 Hours PRN, Mild Pain, Starting on Mon08/11/23 at 1017, If given for fever, use fever parameter: [...] = Pain Score of 7-10, CPOT 5-8 Group 3: ondansetron ODT (ZOFRAN-ODT) disintegrating tablet 4 mgJump to med 4 mg, Oral, Every 6 Hours PRN, Nausea, Vomiting, Starting on Mon08/11/23 at 1017, If BOTH ondansetron (ZOFRAN) and promethazine (PHENERGAN) are ordered use ondansetron first and THEN promethazine IF ondansetron is ineffective. Place on tongue and allow to dissolve. Or ondansetron (ZOFRAN) injection 4 mgJump to med 4 mg, Intravenous, Every 6 Hours PRN, Nausea, Vomiting, Starting on Mon08/11/23 at 1017, If BOTH ondansetron (ZOFRAN) and promethazine (PHENERGAN) are ordered use ondansetron first and THEN promethazine IF ondansetron is ineffective. Group 4: prochlorperazine (COMPAZINE) injection 5 mgJump to med 5 mg, Intravenous, Every 6 Hours PRN, Nausea, Vomiting, Starting on Mon08/13/23 at 1407, If multiple N/V medications ordered, use in the following order: Ondansetron, Prochlorperazine, Promethazine. Use PO unless patient refuses or patient unable to swallow. Or prochlorperazine (COMPAZINE) tablet 5 mgJump to med 5 mg, Oral, Every 6 Hours PRN, Nausea, Vomiting, Starting on 08/13/23 at 1407, If multiple N/V medications ordered, use in the following order: Ondansetron, Prochlorperazine, Promethazine. Use PO unless patient refuses or patient unable to swallow. Or prochlorperazine (COMPAZINE) suppository 25 mgJump to med 25 mg, Rectal, Every 12 Hours PRN, Nausea, Vomiting, Starting on 08/13/23 at 1407, If multiple N/V medications ordered, use in the following order: Ondansetron, Prochlorperazine, Promethazine. Use PO unless patient refuses or patient unable to swallow. documented in this encounter Care Teams Flight Communications Officer Relationship Specialty Start Date End Date Edgar Fournier MD [address] [place] [address] PCP - General Family Medicine 04/27/20 documented as of this encounter
--- OUTSIDE RECORDS SUMMARY | 2024-07-12 12:14 | XMS_ITS | Encounter Summary ---
Author Organization [facility] Address [address] [place] [id number] Care Team Providers Care Cook Railroad Name Role Phone Edgar Fournier MD Primary Care Provider [phone] Reason for Visit * Reason Onset Date Comments FAIASL CALLES MD-CALL BACK 10/09/2023 Encounter Details Date Type Department Care Team (Late st Contact Info) Description 10/09/[address] [facility] CARDIOLOGY [address] [place] [address] Faisal Calles MD [address] [place] [address] FAISAL CALLES MD-CALL BACK Social History Tobacco Use Types Packs/Day Years [...] encounter Miscellaneous Notes * Telephone Encounter - Faisal Calles MD - 10/10/2023 12:03 PM EST I put in a [employer] message yesterday afternoon. It appears in epic that the patient reviewed this after this telephone message was sent below. If needed this is what the [employer] message said I finally heard back from them around 3pm today. Sorry for the delay. They said to try pulling someof the fluid off at home, and consider getting in with your local housemaid (Dr. Kay? Or who is that). Let me know if you need to me reach out to your local neprhologist to try to get you a sooner appointment. As always, if things get worse, you get more short of breath, go to the ER for faster treatment. Take care and let me know how it goes tomorrow Dr. Calles * Telephone Encounter - Viv Bianchi RegSched Rep - 10/09/2023 4:31 PM EST Caller: Aiden Stauffer Jr. Relationship: Self Best call back number: [phone] What is the best time to reach you: ANYTIME Who are you requesting to speak with (clinical staff, provider, specific staff member): CLINCIAL What was the call regarding: PATIENT CALLED BACK TO SEE IF DR. CALLES HAD TALKED TO ANYONE AT THE HOSPITAL ABOUT PATIENTS DIRECT ADMIT Is it okay if the provider responds through MyChart: YES documented in this encounter Plan of Treatment Not on file documented as of this encounter Visit Diagnoses Not on filedocumented in this encounter Care Teams Cook Railroad Relationship Specialty Start Date End Date Edgar Fournier MD [address] [place], [place] [address] PCP - General Family Medicine 04/27/20 documented as of this encounter
--- OUTSIDE RECORDS SUMMARY | 2024-07-12 12:14 | XMS_ITS | Encounter Summary ---
Author Organization [facility] Address [address] [place] [address] Care Team Providers Care Solar Project Manager Name Role Phone Edgar Fournier MD Primary Care Provider [phone] Encounter Details Date Type Department Care Team (Late st Contact Info) Description 08/29/2023 Readmission Management [facility] NURSE CALL CENTER [address] [place] [phone] Aisha Schwartz RN Social History Tobacco Use Types Packs/Day Years [...] encounter Miscellaneous Notes * Outreach Note - Aisha Schwartz RN - 08/29/2023 3:00 PM EST Medical Week 2 Survey Flowsheet Row Responses [facility] patient discharged from? [place] Does the patient have one of the following disease processes/diagnoses(primary or secondary)? Other Week 2 attempt successful? Yes Call start time 1501 Discharge diagnosis Hyperkalemia Call end time 1502 Does the patient have all medications ordered at discharge? Yes Is the patient taking all medications as directed (includes completed medication regime)? Yes Does the patient have a primary care provider? Yes Does the patient have an appointment with their PCP within 7 days of discharge? Yes Comments regarding PCP has seen PCP last week Has the patient kept scheduled appointments due by today? Yes Has home health visited the patient within 72 hours of discharge? N/A Psychosocial issues? No Did the patient receive a copy of their discharge instructions? Yes What is the patient's perception of their health status since discharge? Improving Is the patient/caregiver able to teach back signs and symptoms related to disease process for when to call PCP? Yes Is the patient/caregiver able to teach back signs and symptoms related to disease process for when to call 911? Yes Is the patient/caregiver able to teach back the hierarchy of who to call/visit for symptoms/problems? PCP, Specialist, Home health nurse, Urgent Care, ED, 911 Yes Week 2 Call Completed? Yes Graduated Yes Did the patient feel the follow up calls were helpful during their recovery period? Yes Was the number of calls appropriate? Yes Is the patient interested in additional calls from an ambulatory case making machine operator? No Would this patient benefit from a Referral to [facility] Social Work? No Graduated/Revoked comments Doing well, has been to some f/u appts, no further calls needed. Call end time 1502 Aisah Rodriguez - Registered Nurse documented in this encounter Plan of Treatment Not on file documented as of this encounter Visit Diagnoses Not on filedocumented in this encounter Care Teams Solar Project Manager Relationship Specialty Start Date End Date Edgar Fournier MD [address] [place] [address] PCP - General Family Medicine 04/27/20 documented as of this encounter
--- OUTSIDE RECORDS SUMMARY | 2024-07-12 12:14 | XMS_ITS | Encounter Summary ---
Author Organization [facility] Address [address] [place] [address] Care Team Providers Care System Support Analyst Name Role Phone Edgar Fournier MD Primary Care Provider [phone] Reason for Visit * Reason Comments [facility] D/C009/20/19 24 * Consultation (Routine) - Pending Review Specialty Diagnoses / Procedures Referred By Declan t Referred To Contact Cardiology Diagnoses Sleep apnea NEEDING SLEEP STUDY Referring, [place] [address] Claudia Calles MD [address] [place] [address] Phone: tel: fax: Referral ID Status Reason Start Date Expiration Date V isits Requested Visits Authorized [id number] Pending Review 08/18/2023 08/17/2024 1 1 Encounter Details Date Type Department Care Team (Latest Contact Info) Description 09/20/2023 2:00 PM EST Office Visit [facility] CARDIOLOGY [address] [place] [id number] Claudia Calles MD [address] [place] [address] Pneumonia due to Streptococcus (Primary Dx); Elevated cholesterol with high triglycerides; Obstructive sleep apnea Social History Tobacco Use Types Packs/Day Years Used Date Smoking Tobacco: Never Passive Smoke Exposure: Never Smokeless Tobacco: Never Tobacco Cessation:Counseling Given: Not Answered Alcohol Use Standard Drinks/Week Comments Never 0 [...] Sign Reading Time Taken Comments Blood Pressure 128/68 09/20/2023 1:55 PM EST Pulse 114 09/20/2023 1:55 PM EST Temperature - - Respiratory Rate - - Oxygen Saturation 92% 09/20/2023 1:55 PM EST Inhaled Oxygen Concentration - - Weight 137 kg (302 lb) 09/20/2023 1:55 PM EST Height 175.3 cm (5' 9 ) 09/20/2023 1:55 PM EST Body Mass Index 44.6 09/20/2023 1:55 PM EST documented in this encounter Progress Notes * Claudia Calles MD - 09/20/2023 2:00 PM EST Images from the original note were not included. [facility] Provider Note Date: 09/20/2023 Name: Aiden Stauffer Jr. : 1975 PCP: Edgar Fournier MD Chief Complaint Patient presents with ??? [facility] D/C009/20/2023 Subjective History of Present Illness Aiden Stauffer Jr. is a 48 y.o. male who presents today for new patient appointment. He is a self-referral for sleep disorders.He has been using resmed at home but its not comfortable. It will stop working. It is replacement after he had a recalled Jimenez machine. He uses [facility]. He has been previously following at [facility] but is not happy there and wishes to switch his sleepcare here. He finds it frustrating that his pressures are so uncomfortable when he can tolerate them well in the hospital. He was also discharged from [facility] this morning. He was admitted for chest painbut says he actually went in because he had sweating and diaphoresis and felt smothering in the night. He thinks the chest pain is from HD tunnel cath, right to center. It is, on previously when he had a tunnel catheter and goes away when it is out. It is nearly constant. He is more concerned aboutlast night when he started smothering and sweating at night and went to ER. Has been coughing greensputum lately too. Sugar running high lately which is unusual for him, up to 200s, normally sugar is in 150s or less with insulin PRN. Watery diarrhea last week several times. Because he is on immunos uppressants he does not have typical infectious findings.Triglycerides have been 2000 at [facility] recently. Was not fasting. Supposed to take fish oil BID but it gives him GERD. Lots of left leg pain from prior injury, has to ride a scooter in the store C and LHC at [employer] implanted as well but is not working. No specialty comments available. Allergies Allergen Reactions [...] 1 tablet Daily., Disp: , Rfl: ??? B-D 3CC LUER-LISSETTE SYR 25GX1/2 25G X 1-1/2 3 ML [facility] [place] , Disp: , Rfl: ??? calcitriol (ROCALTROL) [...] day with meals., Disp: , Rfl: ??? cholecalciferol (VITAMIN D3) 1.25 MG (18977 UT) capsule, Take 1 capsule by mouth 3 (Three) Times a Week., Disp: , Rfl: ??? Continuous Blood Gluc Sensor (FreeStyle Leonel 2 Sensor) [facility] [place] USE DIRECTED CHANGE EVERY 14 DAYS DIRECTED, [...] Rfl: ??? vitamin D (ERGOCALCIFEROL) 1.25 MG (70136 UT) capsule capsule, Take 1 capsule by mouth 2 (Two) Times a Week. Takes on Monday and , Disp: , Rfl: ??? Xphozah 20 MG tablet, Take 1 tablet by mouth., Disp: , Rfl: ??? azithromycin (Zithromax) 250 MG tablet, First day take two pills then one pill daily for 7 days, Disp: 8 tablet, Rfl: 0 ??? cephalexin (Keflex) 500 MG capsule, Take 1 capsule by mouth 2 (Two) Times a Day., Disp: 14 capsule, Rfl: 0 Past Medical History: Diagnosis Date ??? Diabetes mellitus ??? Dialysis patient ??? Hemorrhage THROAT VARICIES ??? Kidney failure ??? Liver transplanted Past Surgical History: Procedure Laterality Date ??? ARTERIOVENOUS FISTULA Left 2019 ??? CARDIAC CATHETERIZATION times 3 2022 ??? CHOLECYSTECTOMY ??? ENDOSCOPY N/A 05/04/2020 Procedure: ESOPHAGOGASTRODUODENOSCOPY; Surgeon: Dewey Betancourt MD; Location: [facility] ENDOSCOPY; Service: Gastroenterology; Laterality: N/A; ??? LUMBAR LAMINECTOMY DISCECTOMY DECOMPRESSION N/A 04/29/2020 Procedure: LUMBAR LAMINECTOMY DISCECTOMY DECOMPRESSION POSTERIOR L4-5; Surgeon: Yinka Garnica MD; Location: [facility] OR; Service: Neurosurgery; Laterality: N/A; History reviewed. No pertinent family history. Social History Socioeconomic History ??? Marital status: Tobacco Use ??? Smoking status: Never Passive exposure: Never ??? Smokeless tobacco: Never Vaping Use ??? Vaping Use: Never used Substance and Sexual Activity ??? Alcohol use: Never ??? Drug use: Never ??? Sexual activity: Defer Objective Vital Signs: BP 128/68 Pulse 114 Ht 175.3 cm (69 ) Wt (!) 137 kg (302 lb) SpO2 92% BMI 44.60 kg/m?? Estimated body mass index is 44.6 kg/m?? as calculated from the following: Height as of this encounter: 175.3 cm (69 ). Weight as of this encounter: 137 kg (302 lb). Physical Exam Vitals reviewed. Constitutional: General: [...] upper chest Abdominal: General: Abdomen is flat. Palpations: Abdomen is soft. Musculoskeletal: Cervical back: [...] and all orders for this visit: 1. Pneumonia due to Streptococcus (Primary) Comments: Subtle infectious signs with elevated glucose and tachycardia. Will treat empirically because he isimmunosuppressed. Orders: - azithromycin (Zithromax) 250 MG tablet; First day take two pills then one pill daily for 7 days Dispense: 8 tablet; Refill: 0 - cephalexin (Keflex) 500 MG capsule; Take 1 capsule by mouth 2 (Two) Times a Day. Dispense: 14 capsule; Refill: 0 - Cancel: ECG 12 Lead; Future - ECG 12 Lead; Future - ECG 12 Lead 2. Elevated cholesterol with high triglycerides Comments: Triglycerides over 1999. May improve as his sugar improves. Will repeat. Continue fish oil and fenofibrate for now. Orders: - Comprehensive Metabolic Panel; Future - Lipid Panel; Future - Amylase; Future - Lipase; Future 3. Obstructive sleep apnea Comments: Need to get a copy of his sleep study and a download from his PAP machine to figure out what settings he is on and how to adjust appropriately. Recommendations: Report if any new/changing symptoms immediately Follow Up Return in about 2 weeks (around 10/04/2023) for Next scheduled follow up. Claudia Calles MD 09/20/2023 Please note that this explicitly excludes time [...] Procedure Name Priority Date/Time Associated Diagnosis Comments ECG 12-LEAD Routine 09/20/2023 Pneumonia due to Streptococcus documented in this encounter Results * Lipid Panel (09/26/2023) Blood us Claudia Calles MD LAB BLOOD ORDERABLES Final R esult Performing Organization Address [facility] Co de Phone Number PSYCHIATRIC LABORATORY
[address] [place] [address], * Comprehensive Metabolic Panel (09/26/2023) Blood Claudia Calles MD LAB BLOOD ORDERABLES Final R esult Performing Organization Address [facility] Co de Phone Number PSYCHIATRIC LABORATORY
[address] [place] [address], [place] [phone] * ECG 12 Lead (09/20/2023) Claudia Calles MD ECG ORDERABLES Final Result Performing Organization Address [facility] Co de Phone Number ECG documented in this encounter Visit Diagnoses Diagnosis Pneumonia due to Streptococcus- Primary Pneumonia due to unspecified Streptococcus Elevated cholesterol with high triglycerides Mixed hyperlipidemia Obstructive sleep apnea Obstructive sleep apnea (adult) (pediatric) documented in this encounter Care Teams System Support Analyst Relationship Specialty Start Date End Date Edgar Fournier MD [address] [place] [address] PCP - General Family Medicine 04/27/20 documented as of this encounter
--- OUTSIDE RECORDS SUMMARY | 2024-07-12 12:14 | XMS_ITS | Encounter Summary ---
Author Organization [facility] Address [address] [place] [address] Care Team Providers Care Tool And Die Repairer Name Role Phone Edgar Fournier MD Primary Care Provider [phone] Encounter Details Date Type Department Care Team (Late st Contact Info) Description 09/22/2023 Patient rounding ([facility] [facility] C[facility]IOLOG[facility] [address] [place] [address] Juan Jaime RegSched Rep Social History Tobacco Use Types Packs/Day Years [...] on file documented as of this encounter Progress Notes * Juan Jaime RegSched Rep - 09/22/2023 1:26 PM EST September 22, 2023December I speak with Aiden Stauffer Jr.? My name is JUAN I am with [facility] C[facility] [address] [place] [address] . Before we get started december I verify your date of ? 1975 I am calling to officially welcome you to our practice and ask about your recent visit. Is this a good time to talk? yes Tell me about your visit with us. What things went well? VISIT WAS GOOD. JUST NEED PAP CHANGES WITHMACHINE AND PRESSURE We're always looking for ways to make our patients' experiences even better. Do you have recommendations on ways we may improve? no Overall were you satisfied with your first visit to our practice? yes I appreciate you taking the time to speak with me today. Is there anything else I can do for you? yes CAN YOU ASK ABOUT MY PAP AND PRESSURE CHANGES? Thank you, and have a great day. documented in this encounter Plan of Treatment Not on file documented as of this encounter Visit Diagnoses Not on filedocumented in this encounter Care Teams Tool And Die Repairer Relationship Specialty Start Date End Date Edgar Fournier MD [address] [place] [address] PCP - General Family Medicine 04/27/20 documented as of this encounter
--- OUTSIDE RECORDS SUMMARY | 2024-07-12 12:14 | XMS_ITS | Encounter Summary ---
Author Organization [facility] Address [address] [place] [address] Care Team Providers Care Pain Coordinator Name Role Phone Edgar Fournier MD Primary Care Provider [phone] Encounter Details Date Type Department Care Team (Late st Contact Info) Description 08/24/2023 Readmission Management [facility] NURSE CALL CENTER [address] [place] [phone] Cassandra Conway RN Social History Tobacco Use Types Packs/Day [...] encounter Miscellaneous Notes * Outreach Note - Cassandra Conway, RN - 08/24/2023 2:30 PM EST Medical Week 2 Survey Flowsheet Row Responses [facility] patient discharged from? [place] Does the patient have one of the following disease processes/diagnoses(primary or secondary)? Other Week 2 attempt successful? No Unsuccessful attempts Attempt 1 Cassandra Ferrera - Registered Nurse documented in this encounter Plan of Treatment Not on file documented as of this encounter Visit Diagnoses Not on filedocumented in this encounter Care Teams Pain Coordinator Relationship Specialty Start Date End Date Edgar Fournier MD [address] [place] [address] PCP - General Family Medicine 04/27/20 documented as of this encounter
--- OUTSIDE RECORDS SUMMARY | 2024-07-12 12:14 | XMS_ITS | Encounter Summary ---
Author Organization [facility] Address [address] [place] [address] Care Team Providers Care Manager It Training Name Role Phone Edgar Fournier MD Primary Care Provider [phone] Encounter Details Date Type Department Care Team (Late st Contact Info) Description 10/25/2023 Telephone [facility] CARDIOLOGY [address] [place] [address] Claudia Calles MD [address] [place] [address] Social History Tobacco Use Types Packs/Day Years [...] Telephone Encounter - Valeria Walton MA - 10/25/2023 2:08 PM EDT Called patient LVM with details that we need a few days of data and to bring chip in on Monday for download so we may access his pressures. * Telephone Encounter - Valeria Walton MA - 10/25/2023 1:03 PM EDT Patient called in states the new pressures are better and he can tolerate but feels like its not blowing as hard as hospital one. Thinks he needs more pressures or new machine like ones in hospital. Please advise can't do download without his chip, documented in this encounter Plan of Treatment Not on file documented as of this encounter Visit Diagnoses Not on filedocumented in this encounter Care Teams Manager It Training Relationship Specialty Start Date End Date Edgar Fournier MD [address] [place], [place] [address] PCP - General Family Medicine 04/27/20 documented as of this encounter
--- OUTSIDE RECORDS SUMMARY | 2024-07-12 12:14 | XMS_ITS | Encounter Summary ---
Author Organization [facility] Address [address] [place] [address] Care Team Providers Care Leather Polisher Name Role Phone Edgar Fournier MD Primary Care Provider [phone] Encounter Details Date Type Department Care Team (Late st Contact Info) Description 09/26/2023 Telephone [facility] CARDIOLOGY [address] [place] [address] Kezia Brown, SKID STRAPPER [address] [place] [address] Social History Tobacco Use Types Packs/Day [...] encounter Miscellaneous Notes * Telephone Encounter - Vera Chi MA - 09/26/2023 12:47 PM EST [facility] called for a critical lab on patient Creatine 10.3. documented in this encounter Plan of Treatment Not on file documented as of this encounter Visit Diagnoses Not on filedocumented in this encounter Care Teams Leather Polisher Relationship Specialty Start Date End Date Edgar Fournier MD [address] [place], [place] [address] PCP - General Family Medicine 04/27/20 documented as of this encounter
--- OUTSIDE RECORDS SUMMARY | 2024-07-12 12:14 | XMS_ITS | Encounter Summary ---
Author Organization [facility] Address [address] [place] [address] Care Team Providers Care Real Estate Subagent Name Role Phone Edgar Fournier MD Primary Care Provider [phone] Encounter Details Date Type Department Care Team (Late st Contact Info) Description 10/12/2023 Telephone [facility] C[facility] [address] [place] [phone] Claudia Calles MD [address] [place] [address] Social History Tobacco Use Types [...] encounter Miscellaneous Notes * Telephone Encounter - Judi Dale MA - 10/12/2023 10:48 AM EST Patient called and stated he had spoken to Valeria about his pap machine and was calling her back. He can be reached at [phone]. documented in this encounter Plan of Treatment Not on file documented as of this encounter Visit Diagnoses Not on filedocumented in this encounter Care Teams Real Estate Subagent Relationship Specialty Start Date End Date Edgar Fournier MD [address] [place], [place] [address] PCP - General Family Medicine 04/27/20 documented as of this encounter
--- OUTSIDE RECORDS SUMMARY | 2024-07-12 12:15 | XMS_ITS | Encounter Summary ---
Author Organization [facility] Address [address] [place] [address] Care Team Providers Care Shake Sawyer Name Role Phone Edgar Fournier MD Primary Care Provider [phone] Encounter Details Date Type Department Care Team (Late st Contact Info) Description 06/12/2020 Readmission Management [facility] [address] [place] [phone] Karolina Ang RN Social History Tobacco Use Types Packs/Day Years Used Date Smoking Tobacco: Never Smokeless Tobacco: Never Alcohol Use Standard Drinks/Week Comments Never 0 (1 standard drink = 0.6 oz pur e alcohol) AUDIT-C Answer Date Recorded Q1: How often do you have a drink containing alc ohol? Never 04/28/2020 Average Number of Drinks Not on file 020 Frequency of Binge Drinking Not on file 04/14 Sex and Gender Information Value Date Recorded Sex Assigned at Not on file Legal Sex Male 12:05 PM EDT Gender Identity Not on file Sexual Orientation Not on file documented as of this encounter Miscellaneous Notes * Outreach Note - Karolina Ang RN - 06/12/2020 9:19 AM EDT Sepsis Week 3 [facility] the patient have one of the following disease processes/diagnoses(primary or secondary)? Sepsis Week 3 attempt successful? No Unsuccessful attempts Attempt 2 Karolina Ang RN documented in this encounter Plan of Treatment Not on file documented as of this encounter Visit Diagnoses Not on filedocumented in this encounter Care Teams Shake Sawyer Relationship Specialty Start Date End Date Edgar Fournier MD [address] [place] [address] PCP - General Family Medicine 04/27/20 documented as of this encounter
--- OUTSIDE RECORDS SUMMARY | 2024-07-12 12:15 | XMS_ITS | Encounter Summary ---
Author Organization [facility] Address [address] [place] [address] Care Team Providers Care Writing Tutor Name Role Phone Edgar Fournier MD Primary Care Provider [phone] Encounter Details Date Type Department Care Team (Late st Contact Info) Description 05/15/2020 Readmission Management [facility] [address] [place] [phone] Wilmer Nuñez, RN Social History Tobacco Use Types Packs/Day [...] encounter Miscellaneous Notes * Outreach Note - Wilmer Nuñez, RN - 05/15/2020 10:44 AM EDT Sepsis Week 1 Survey [facility] Does the patient have one of the following disease processes/diagnoses(primary or secondary)? Sepsis Week 1 attempt successful? No Unsuccessful attempts Attempt 1 Wilmer Nuñez RN documented in this encounter Plan of Treatment Not on file documented as of this encounter Visit Diagnoses Not on filedocumented in this encounter Care Teams Writing Tutor Relationship Specialty Start Date End Date Edgar Fournier MD [address] [place] [address] PCP - General Family Medicine 04/27/20 documented as of this encounter
--- OUTSIDE RECORDS SUMMARY | 2024-07-12 12:15 | XMS_ITS | Encounter Summary ---
Author Organization [facility] Address [address] [id number] Care Team Providers Care Field Sampling Technician Name Role Phone Edgar Fournier MD Primary Care Provider [phone] Reason for Visit * Reason Onset Date Comments patient call 05/21/2020 Encounter Details Date Type Department Care Team (Late st Contact Info) Description 05/21/2020 Telephone [facility] [address] [phone] Yinka Garnica MD [address] [facility] [address] [phone] patient call Social History Tobacco Use Types Packs/Day Years [...] encounter Miscellaneous Notes * Telephone Encounter - Tim Coppola PA-C - 05/21/2020 3:33 PM EDT . * Telephone Encounter - Li See - 05/21/2020 10:06 AM EDT Provider: Nahun Caller: Patient Time of call: 9:52A Phone #: [phone] Surgery: L4-5 Lami Surgery Date: 04/29/20 Last visit: N/A - ED to Hosp Admission Next visit: 06/11/20 SHAKILA: Reason for call: Patient experiencing a significant amount of pain in low back, hips and spasms in low back and (R) LE. Still laying in bed. Has taken only about 10 steps since surgery. Not sitting up in a chair. Ambulance is transporting him to and from dialysis. is unable to help support patient to help get him in an upright position. Home health/PT has only visited the home 1 time since discharge. Patient states he is awaiting a call back regarding next visit. Incision looks good and healing well. Patient requesting a call back. documented in this encounter Plan of Treatment Not on file documented as of this encounter Visit Diagnoses Not on filedocumented in this encounter Care Teams Field Sampling Technician Relationship Specialty Start Date End Date Edgar Fournier MD [address] [place] [address] PCP - General Family Medicine 04/27/20 documented as of this encounter
--- OUTSIDE RECORDS SUMMARY | 2024-07-12 12:15 | XMS_ITS | Encounter Summary ---
Author Organization [facility] Address [address] [id number] Care Team Providers Care Nurse Aide Evaluator Name Role Phone Edgar Fournier MD Primary Care Provider [phone] Encounter Details Date Type Department Care Team (Late st Contact Info) Description 04/21/2023 Documentation [facility] HOSPITAL[facility] PROVID[facility] [address] [place] [phone] Victor Manuel Castro MD [address] [place] [address] Social History Tobacco Use Types Packs/Day Years [...] on file documented as of this encounter Plan of Treatment Not on file documented as of this encounter Visit Diagnoses Not on filedocumented in this encounter Care Teams Nurse Aide Evaluator Relationship Specialty Start Date End Date Edgar Fournier MD [address] [place] [address] PCP - General Family Medicine 04/27/20 documented as of this encounter
--- OUTSIDE RECORDS SUMMARY | 2024-07-12 12:15 | XMS_ITS | Encounter Summary ---
Author Organization [facility] Address [address] [place] [address] Care Team Providers Care Weed Cutter Name Role Phone Edgar Fournier MD Primary Care Provider [phone] Encounter Details Date Type Department Care Team (Late st Contact Info) Description 05/22/2020 Readmission Management [facility] [address] [place] [phone] Breanne Ingram RN Social History Tobacco Use Types Packs/Day [...] encounter Miscellaneous Notes * Outreach Note - Breanne Ingram RN - 05/22/2020 3:36 PM EDT Sepsis Week 1 Survey Responses [facility] [place] the patient have one of the following disease processes/diagnoses(primary or secondary)? Sepsis Week 1 attempt successful? Yes Call start time [phone] Call end time 1547 General alerts for this patient [facility] - Discharge diagnosis sepsis, discitis, epidural abscess, L5 laminectomy, epidural abscess I and D Meds reviewed with patient/caregiver? Yes Is the patient having any side effects they believe may be caused by any medication additions or changes? No Does the patient have all medications related to this admission filled (includes all antibiotics, inhalers, nebulizers,steroids,etc.) Yes Is the patient taking all medications as directed (includes completed medication regime)? Yes Comments regarding appointments Dialysis on M, W, F, Appt with Dr. Garnica on 06/11/20, [facility] d/c Does the patient have a primary care provider? Yes Comments regarding PCP 05/26/20 Does the patient have an appointment with their PCP within 7 days of discharge? Greater than 7 days What is preventing the patient from scheduling follow up appointments within 7 days of discharge? Earlier appointment not available Nursing Interventions Verified appointment date/time/provider Has the patient kept scheduled appointments due by today? Yes What is the Home health agency? [facility] Has home health visited the patient within 72 hours of discharge? Unsure Psychosocial issues? No Did the patient receive a copy of their discharge instructions? Yes Nursing interventions Reviewed instructions with patient What is the patient's perception of their health status since discharge? Improving [Pt reports, I'm still not great. I'm still not walking. I'm in pain, I'm not going to lie. He does report pain isbetter. ] Nursing interventions Nurse provided patient education Is the patient/caregiver able to teach back Sepsis? S - Shivering,fever or very cold, E - Extreme pain or generalized discomfort (worst ever,especially abdomen), S - Sleepy, difficult to arouse,confused, S - Short of breath Nursing interventions Nurse provided patient education Is patient/caregiver able to teach back steps to recovery at home? Rest and regain strength, Eat a balanced diet, Set small, achievable goals for return to baseline health Is the patient/caregiver able to teach back signs and symptoms of worsening condition: Fever, Hyperthermia, Shortness of breath/rapid respiratory rate, Altered mental status(confusion/coma) If the patient is a current smoker, are they able to teach back resources for cessation? Not a smoker Is the patient/caregiver able to teach back the hierarchy of who to call/visit for symptoms/problems? PCP, Specialist, Home health nurse, Urgent Care, ED, 911 Yes Week 1 call completed? Yes Breanne Ingram RN documented in this encounter Plan of Treatment Not on file documented as of this encounter Visit Diagnoses Not on filedocumented in this encounter Care Teams Weed Cutter Relationship Specialty Start Date End Date Edgar Fournier MD [address] [place], [place] [address] PCP - General Family Medicine 04/27/20 documented as of this encounter
--- OUTSIDE RECORDS SUMMARY | 2024-07-12 12:15 | XMS_ITS | Encounter Summary ---
Author Organization [facility] Address [address] [place] [address] Care Team Providers Care Digital Media Analyst Name Role Phone Edgar Fournier MD Primary Care Provider [phone] Encounter Details Date Type Department Care Team (Late st Contact Info) Description 04/21/[address] [place] [address] Victor Manuel Castro MD [address] [place] [address] Social History Tobacco Use Types Packs/Day Years [...] encounter Miscellaneous Notes * Telephone Encounter - Lyly Serrano RN - 04/21/2023 4:25 PM EDT Pt called to check on him s/p fistula gram. Pt reports he removed the stitch he was to remove todayand there was no bleeding. Dialysis was completed last night without difficulty. documented in this encounter Plan of Treatment Not on file documented as of this encounter Visit Diagnoses Not on filedocumented in this encounter Care Teams Digital Media Analyst Relationship Specialty Start Date End Date Edgar Fournier MD [address] [place] [address] PCP - General Family Medicine 04/27/20 documented as of this encounter
--- OUTSIDE RECORDS SUMMARY | 2024-07-12 12:15 | XMS_ITS | Encounter Summary ---
Author Organization [facility] Address [address] [place] [address] Care Team Providers Care Washer Cutter Name Role Phone Edgar Fournier MD Primary Care Provider [phone] Encounter Details Date Type Department Care Team (Late st Contact Info) Description 05/18/2020 Readmission Management [facility] [address] [place] [phone] Wilmer Nuñez, RN Social History Tobacco [...] Outreach Note - Wilmer Nuñez, RN - 05/18/2020 12:01 PM EDT Sepsis Week 1 Survey [facility] Does the patient have one of the following disease processes/diagnoses(primary or secondary)? Sepsis Week 1 attempt successful? No Unsuccessful attempts Attempt 2 Wilmer Nuñez, JANA documented in this encounter Plan of Treatment Not on file documented as of this encounter Visit Diagnoses Not on filedocumented in this encounter Care Teams Washer Cutter Relationship Specialty Start Date End Date Edgar Fournier MD [address] [place] [address] PCP - General Family Medicine 04/27/20 documented as of this encounter
--- OUTSIDE RECORDS SUMMARY | 2024-07-12 12:15 | XMS_ITS | Encounter Summary ---
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, subsequent encounter Procedures IR Angiogram Extremity IR transluminal balloon angioplasty venous Victor Manuel Castro MD [address] [place] [address] Phone: tel: fax: Referral ID Status Reason Start Date Expiration Date Visits Re quested Visits Authorized [id number] Closed 04/05/2023 04/04/2024 1 1 Reason for Visit * Diagnostic Imaging (Routine) - Closed Specialty Diagnoses / Procedures Referred By Declan hines Referred To Contact Radiology Diagnoses 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, subsequent encounter Procedures IR Angiogram Extremity IR transluminal balloon angioplasty venous Victor Manuel Castro MD [address] [place] [address] Phone: tel: fax: Referral ID Status Reason Start Date Expiration Date Visits Re quested Visits Authorized [id number] Closed 04/05/2023 04/04/2024 1 1 Encounter Details Date Type Department Care Team (Latest Contact Info) Description 04/20/2023 8:45 AM EDT - 04/20/2023 11:59 PM EDT Hospital Encounter [facility] INTERVENTIONAL RADIOLOGY [address] [place] [id number] 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 carBAMazepine (TEGretol) 200 MG tablet Take 1 tablet by mouth Every Night. For feet cramps doxazosin (CARDURA) 8 MG tablet Take 1 tablet by mouth At Night As Needed. gabapentin (NEURONTIN) 800 MG tablet Take 0.5 tablets by mouth Every Night. methocarbamol (ROBAXIN) 500 MG tablet Take 1 tablet by mouth 1 (One) Time. montelukast (SINGULAIR) 10 MG tablet Take 1 tablet by mouth Daily. 04/14/2023 NIFEdipine CC (ADALAT CC) 90 MG 24 hr tablet Take 1 tablet by mouth 2 (Two) Times a Day. ALPRAZolam (XANAX) 1 MG tablet Take 1 tablet by mouth Daily. Take before dialysis 4 cyclobenzaprine (FLEXERIL) 10 MG tablet Take 1 tablet by mouth 3 (Three) Times a Day As Needed for Muscle Spasms. 4 cycloSPORINE modified (NEORAL) 25 MG capsule Take 2 capsules by mouth 2 (Two) Times a Day. 4 entecavir (BARACLUDE) 0.5 MG tablet Take 1 tablet by mouth Daily. For 7 days, started 04-27-20 4 famotidine (PEPCID) 20 MG tablet Take 1 tablet by mouth 2 (Two) Times a Day As Needed for Heartburn. 4 hydrALAZINE (APRESOLINE) 50 MG tablet Take 6 tablets by mouth 3 (Three) Times a Day. 4 hydrOXYzine pamoate (VISTARIL) 25 MG capsule [...] As Needed for Nausea or Vomiting. 4 vancomycin in dextrose 5% 150 mL (VANCOCIN) 750-5 MG/150ML-% IVPBIndications: Bone and/or Joint Infection Infuse 150 mL into a venous catheter Every Other Day. After HD Indications: Bone and/or Joint Infection 05/13/2020 3 vitamin D (ERGOCALCIFEROL) 1.25 MG (75059 UT) capsule capsule Take 1 capsule by mouth 2 (Two) Times a Week. 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 There is 80-90% stenosis of the 2 of the many outflow veins. This might be responsible for high venous pressure in the fistula. Patient is on home hemodialysis. These veins were successfully accessed and subjected to angioplasty with a 6 mm x 4 cm balloon with resolution of stenosis and roman catholic of brisk flow. Please remove the pursestring suture after 24 hours. Thank you for the opportunity to assist in the care of your patient. Electronically Signed: Victor Manuel Castro MD 04/20/2023 3:57 PM EDT Workstation ID: [id number] Narrative 04/20/2023 3:57 PM EDT IR ANGIOPLASTY AV FIST GRAFT ARTERIAL, IR ANGIOGRAM EXTREMITY History: continued high venous pressure pressure in fistula the patient had a previous AV fistulogram on 03/22/2023. No definite area of stenosis was seen except for possible stenosis in some of the multiple collateral outflow venous channels in the lower part of the upper arm. Please see the previous report for details. Because of the persistent high venous pressures, the patient was offered angioplasty of these stenotic outflow veins. Physician Obstetrician: Victor Manuel Castro M.D. Modality: Sonography and fluoroscopy. ? DOSE REDUCTION: The examination was performed according to departmental dose-optimization program. Fluoro time: 5:18 minutes:seconds. Radiation dose: 100 mGy air Kerma. ?? Sedation: SEDATION: Moderate sedation was administered. 2.5 milligram of Versed and 125 micrograms of fentanyl IV was used for moderate sedation. Total intra service time of sedation was 30 minutes. The sedation was administered and the patient's vital signs monitored throughout the procedure and recorded in the patient's medical record by the nurse under my direct supervision. Anesthesia: Lidocaine 1% local infiltration. ?? Medicines: None Contrast medium: Isovue 300, 25 cc. Estimated blood loss: ??< 5 cc. ? [...] was accessed in antegrade direction in the antecubital region where the cephalic vein ends in a blind sac and the flow continues via antecubital collateral into the medial veins of the upper arm with some tortuosity in the proximal veins. Through the needle, a 018 guidewire was placed in the fistula followed by placement of a conversion sheath. The sheath was then used for performing a fistulogram and an outflow venogram. Later in the case, completion central venogram was also performed There is presence of tortuous collaterals ultimately draining into the medial veins of the upper arm including the brachial and basilic veins. There is presence of approximately 70-80% stenosis in 2 of the major veins draining the fistula just above the medial epicondyle of the humerus. This likely is responsible for causing high venous pressures in the fistula. There is no other stenosis in the fistula outflow. Over the wire, a 7 Peruvian sheath was placed. Using advanced techniques, 035 Glidewire was maneuvered across one of the stenotic veins followed by performance of angioplasty of the stenotic area with a 6 mm x 4 cm angioplasty balloon successfully with resolution of stenosis. A 018V 18 wire was left in place as a safety wire and the balloon retracted. The Glidewire was then reintroduced through the sheath and maneuvered across the second vein with 80-90% stenosis successfully. Over the wire, angioplasty of the stenotic areas was performed with a 6 x 4 millimeter angioplasty balloon. Follow-up angiogram revealed roman catholic of luminal patency and flow and a nice thrill. This is a large high flow fistula. Reflux run was not performed. The access was withdrawn and hemostasis secured by application of a pursestring suture and/or manual compression. An aseptic dressing was applied. The patient was then transferred to the recovery area and discharged from the department in stable condition. Complications: None immediate. ? Findings: As above. Procedure Note Victor Manuel Castro MD - 04/20/2023 IR ANGIOPLASTY AV FIST GRAFT ARTERIAL, IR ANGIOGRAM EXTREMITY History: continued high venous pressure pressure in fistula the patienthad a previous AV fistulogram on 03/22/2023. No definite area of stenosiswas seen except for possible stenosis in some of the multiple collateraloutflow venous channels in the lower part of the upper arm. Please see the previous report for details. Becauseof the persistent high venous pressures, the patient was offeredangioplasty of these stenotic outflow veins. Physician Obstetrician: Victor Manuel Castro M.D. Modality: Sonography and fluoroscopy. DOSE REDUCTION: The examination was performed according to departmentaldose-optimization program. Fluoro time: 5:18 minutes:seconds. Radiation dose: 100 mGy air Kerma. Sedation: SEDATION: Moderate sedation was administered. 2.5 milligram of Versed [id number] micrograms of fentanyl IV was used for moderate sedation. Total intraservice time of sedation was 30 minutes. The sedation was administered andthe patient's vital signs monitored throughout the procedure and recorded in the patient's medicalrecord by the nurse under my direct supervision. Anesthesia: Lidocaine 1% local infiltration. Medicines: None [...] fistula was accessed inantegrade direction in the antecubital region where the cephalic vein endsin a blind sac and the flow continues via antecubital collateral into themedial veins of the upper arm with some tortuosity in the proximal veins. Through the needle, a 018 guidewirewas placed in the fistula followed by placement of a conversion sheath.The sheath was then used for performing a fistulogram and an outflowvenogram. Later in the case, completion central venogram was also performed There is presence of tortuous collaterals ultimately draining into themedial veins of the upper arm including the brachial and basilic veins.There is presence of approximately 70-80% stenosis in 2 of the major veinsdraining the fistula just above the medial epicondyle of the humerus. This likely is responsible for causinghigh venous pressures in the fistula. There is no other stenosis in thefistula outflow. Over the wire, a 7 Peruvian sheath was placed. Using advanced techniques,035 Glidewire was maneuvered across one of the stenotic veins followed byperformance of angioplasty of the stenotic area with a 6 mm x 4 cmangioplasty balloon successfully with resolution of stenosis. A 018V 18 wire was left in place as a safety wireand the balloon retracted. The Glidewire was then reintroduced through thesheath and maneuvered across the second vein with 80-90% stenosissuccessfully. Over the wire, angioplasty of the stenotic areas was performed with a 6 x 4 millimeterangioplasty balloon. Follow-up angiogram revealed roman catholic of luminalpatency and flow and a nice thrill. This is a large high flow fistula. [...] the elbow andcollateral flow via antecubital vein into tortuous medial upper armcollateral veins including the brachial and basilic veins. There is 80-90% stenosis of the 2 of the many outflowveins. This might be responsible for high venous pressure in the fistula.Patient is on home hemodialysis. These veins were successfully accessedand subjected to angioplasty with a 6 mm x 4 cm balloon with resolution of stenosis and roman catholic of briskflow. Please remove the pursestring suture after 24 hours. Thank you for the opportunity to assist in the care of your patient. 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
--- OUTSIDE RECORDS SUMMARY | 2024-07-12 12:15 | XMS_ITS | Encounter Summary ---
Author Organization [facility] Address [address] [place] [address] Care Team Providers Care Abrasives Sales Representative Name Role Phone Edgar Fournier MD Primary Care Provider [phone] Reason for Visit * Reason Onset Date Comments Appointment 04/04/2023 Patient called donny richardson to let you know that he is still having issues with his fistula. He stated when he was here for his fistulagram you gave him your card and told him to call directly if he was still having issues and that there was something else you may be able to try. Encounter Details Date Type Department Care Team (Late st Contact Info) Description 04/04/2023 Telephone [facility] XRAY [address] [place] [address] Victor Manuel Castro MD [address] [place] [address] Appointment (Patient called today to let you know that he is still having issues with his fistula. He stated when he was here for his fistulagram you gave him your card and told him to call directly if he was still having issues and that there was something else you may be able to try. ) Social History Tobacco Use Types Packs/Day Years [...] encounter Miscellaneous Notes * [place] - 04/04/2023 1:04 PM EDT Patient called today to let you know that he is still having issues with his fistula. He stated when he was here for his fistulagram you gave him your card and told him to call directly if he was still having issues and that there was something else you may be able to try. documented in this encounter Plan of Treatment Not on file documented as of this encounter Visit Diagnoses Not on filedocumented in this encounter Care Teams Abrasives Sales Representative Relationship Specialty Start Date End Date Edgar Fournier MD [address] [address] PCP - General Family Medicine 04/27/20 documented as of this encounter
--- OUTSIDE RECORDS SUMMARY | 2024-07-12 12:15 | XMS_ITS | Encounter Summary ---
[facility] Address [address] [place] [address] Care Team Providers Care Resource Specialist Name Role Phone Edgar Fournier MD Primary Care Provider [phone] Encounter Details Date Type Department Care Team (Late st Contact Info) Description 05/14/2020 Readmission Management [facility] [address] [place] [id number] Regla Wood RN Social History Tobacco Use Types Packs/Day [...] encounter Miscellaneous Notes * Outreach Note - Regla Wood, RN - 05/14/2020 4:24 AM CDT Prep Survey Responses [facility] [place] patient discharged from? [place]f Is LACE score < 7 ? No Eligibility Readm Mgmt Discharge diagnosis sepsis, discitis, epidural abscess, L5 laminectomy, epidural abscess I and D Does the patient have one of the following disease processes/diagnoses(primary or secondary)? Sepsis Does the patient have Home health ordered? Yes What is the Home health agency? [facility] Is there a DME ordered? No Comments regarding appointments see AVS Medication alerts for this patient see AVS General alerts for this patient [facility] - Prep survey completed? Yes Regla Wood RN documented in this encounter Plan of Treatment Not on file documented as of this encounter Visit Diagnoses Not on filedocumented in this encounter Care Teams Resource Specialist Relationship Specialty Start Date End Date Edgar Fournier MD [address] [place] [address] PCP - General Family Medicine 04/27/20 documented as of this encounter
--- OUTSIDE RECORDS SUMMARY | 2024-07-12 12:15 | XMS_ITS | Encounter Summary ---
Author Organization [facility] Address [address] [id number] Care Team Providers Care Aircraft Armorer Name Role Phone Edgar Fournier MD Primary Care Provider [phone] Reason for Referral * (Routine) - Closed Specialty Diagnoses / Procedures Referred By Declan hines Referred To Contact Procedures Nursing communication Victor Manuel Castro MD [address] [place] [address] Phone: tel: fax: Referral ID Status Reason Start Date Expiration Date Visits Re quested Visits Authorized [id number] Closed 04/20/2023 04/19/2024 1 1 * Diagnostic Imaging (Routine) - Closed Specialty Diagnoses / Procedures Referred By Declan hines Referred To Contact Radiology Diagnoses 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, subsequent encounter Procedures IR Angioplasty AV Fistula / Graft Arterial Victor Manuel Castro MD [address] [place] [address] Phone: tel: fax: Referral ID Status Reason Start Date Expiration Date Visits Re quested Visits Authorized [id number] Closed 04/05/2023 04/04/2024 1 1 Reason for Visit * Diagnostic Imaging (Routine) - Closed Specialty Diagnoses / Procedures Referred By Declan hines Referred To Contact Radiology Diagnoses 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, subsequent encounter Procedures IR Angioplasty AV Fistula / Graft Arterial Victor Manuel Castro MD [address] [place] [address] Phone: tel: fax: Referral ID Status Reason Start Date Expiration Date Visits Re quested Visits Authorized [id number] Closed 04/05/2023 04/04/2024 1 1 Encounter Details Date Type Department Care Team (Latest Contact Info) Description 04/20/2023 7:28 AM EDT - 04/20/2023 11:59 PM EDT Hospital Encounter [facility] INTERVENTIONAL RADIOLOGY [address] [place] [address] 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 * AV Fistula Placement Care After ([place] Citizen) * Moderate Conscious Sedation Adult ([place] Citizen) documented in this encounter Medications at Time [...] 05/13/2020 3 vitamin D (ERGOCALCIFEROL) 1.25 MG (65186 UT) capsule capsule Take 1 capsule by mouth 2 (Two) Times a Week. Takes on Monday and 4 documented as of this encounter Procedure Notes * Victor Manuel Castro MD - 04/20/2023 7:30 AM EDT The following procedure was performed: LFA AVF gram and TOP CUTTER Please see corresponding Radiology report for in detail procedural information. The Radiology report will be dictated shortly, if not done so already. Please see the IR RN note for the information regarding medicines administered if any, timothy-procedural vitals and I/O information. * Victor Manuel Castro MD - 04/20/2023 7:30 AM EDT [facility] Vascular Interventional Radiology History & Physicial Patient Name:Aiden Stauffer Jr. : 1975 Primary Care Physician: Edgar Fournier MD Referring Physician: Victor Manuel Castro MD Date of admission: 04/20/2023 Subjective Reason for Consult: LFA AVF gram and TOP CUTTER History of Present Illness Aiden Stauffer Jr. is a 48 y.o. male referred to IR as noted above. Active Hospital Problems: There are no active hospital problems to display for this patient. Personal History Past Medical History: Diagnosis Date Diabetes mellitus Dialysis patient Hemorrhage THROAT VARICIES Kidney failure Liver transplanted Past Surgical History: Procedure Laterality Date ARTERIOVENOUS FISTULA Left 2019 CARDIAC CATHETERIZATION times 2022 CHOLECYSTECTOMY ENDOSCOPY N/A 05/04/2020 Procedure: ESOPHAGOGASTRODUODENOSCOPY; Surgeon: Dewey Betancourt MD; Location: [facility] ENDOSCOPY; Service: Gastroenterology; Laterality: N/A; LUMBAR LAMINECTOMY DISCECTOMY DECOMPRESSION N/A 04/29/2020 Procedure: LUMBAR LAMINECTOMY DISCECTOMY DECOMPRESSION POSTERIOR L4-5; Surgeon: Yinka Garnica MD; Location: [facility] OR; Service: Neurosurgery; Laterality: N/A; Family [...] pamoate, insulin NPH, lisinopril, methocarbamol, mycophenolate, ondansetron, vancomycin in dextrose 5% 150 mL, and vitamin D Current Medications: ondansetron heparin (porcine) iopamidol lidocaine PF 1% sodium chloride sodium chloride sodium chloride Allergies: He has No Known Allergies. Review of Systems IR Procedure pertinent significant findings are mentioned in the PMH and PSH above. Objective Visit Vitals BP 138/79 Pulse 70 Temp 97 ??F (36.1 ??C) (Tympanic) Resp 10 Ht 175.3 cm (69 ) Wt 136 kg (299 lb 12.8 oz) SpO2 97% BMI 44.27 kg/m?? Physical Exam A&Ox3. Able to communicate No Apparent Distress Average physique CVS: VS as noted. Chart reviewed. Stable for the procedure. Respiratory: Non labored breathing. No signs of respiratory compromise. Pulsatile hypertrophic LFA AVF. Result Review I have personally reviewed the results from the time of this admission to 04/20/2023 10:14 EDT and agree with these findings. [x] Laboratory [] Microbiology [x] Radiology [] EKG/Telemetry [] Cardiology/Vascular [] Pathology [] Old records [] Other: Most notable findings include: As noted: Results from last 7 days Lab Units 04/20/23 0739 WBC 10*3/mm3 3.83 HEMOGLOBIN g/dL 10.1* HEMATOCRIT % 31.9* PLATELETS 10*3/mm3 224 Results from last 7 days Lab Units 04/20/23 0825 SODIUM mmol/L 139 POTASSIUM mmol/L 4.2 CHLORIDE mmol/L 99 CO2 mmol/L 24.0 BUN mg/dL 60* CREATININE mg/dL 9.27* EGFR mL/min/1.73 6.4* GLUCOSE mg/dL 126* Estimated Creatinine Clearance: 13.2 mL/min (A) (by C-G formula based on SCr of 9.27 mg/dL (H)). Creatinine Date Value Ref Range Status 04/20/2023 9.27 (H) 0.76 - 1.27 mg/dL Final SARS-CoV-2, [...] Test results have been sent to the [facility] in accordance with state requirements. For a fact sheet for healthcare providers, see https://www.fda.gov/media/485536/download. For a fact sheet for patients, see https://www.fda.gov/media/279685/download. No results found for: PREGTESTUR, PREGSERUM, HCG, HCGQUANT ASA SCALE ASSESSMENT (applicable ONLY if sedation planned): 3 MALLAMPATI CLASSIFICATION (applicable ONLY if sedation planned): 2 Assessment / Plan Aiden Stauffer Jr. is a 48 y.o. male referred to the IR service with above problem. Plan: As above. Notice: The note was created before the performance of the procedure. It might have been left in the pending status and signed off after the procedure. The time stamp on the note may be misleading. Victor Manuel Castro MD Vascular Interventional Radiology 04/20/23 10:14 AM EDT documented in this encounter Nursing Notes * Manolo Nunez RN - 04/20/2023 10:11 AM EDT Patient down in IR for fistulagram/graft/angioplasty. Patient tolerated well. Patient given 125mcg of fentanyl and 2.5mg of versed for a sedation time of 30 minutes. 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 Please remove the pursestring suture after 24 hours. Thank you for the opportunity to assist in the care of your patient. Electronically Signed: Victor Manuel Castro MD 04/20/2023 3:57 PM EDT Workstation ID: [id number] Narrative 04/20/2023 3:57 PM EDT IR ANGIOPLASTY [...] offered angioplasty of these stenotic outflow veins. Managed Care Coordinator: Victor Manuel Castro M.D. Modality: Sonography and [...] fistula outflow. Over the wire, a 7 Micronesian sheath was placed. Using advanced techniques, 035 [...] 4 millimeter angioplasty balloon. Follow-up angiogram revealed sabianist of luminal patency and flow and a [...] immediate. ? Findings: As above. Procedure Note Matthew, Victor Manuel Mary, MD - 04/20/2023 IR ANGIOPLASTY AV FIST [...] was offeredangioplasty of these stenotic outflow veins. Managed Care Coordinator: Victor Manuel Castro M.D. Modality: Sonography and fluoroscopy. DOSE REDUCTION: The examination was performed according to departmentaldose-optimization program. Fluoro time: 5:18 minutes:seconds. Radiation dose: 100 mGy air Kerma. Sedation: SEDATION: Moderate sedation was administered. 2.5 milligram of Versed [id number] micrograms of fentanyl IV was used for [...] thefistula outflow. Over the wire, a 7 Micronesian sheath was placed. Using advanced techniques,035 Glidewire [...] x 4 millimeterangioplasty balloon. Follow-up angiogram revealed sabianist of luminalpatency and flow and a nice [...] cm balloon with resolution of stenosis and sabianist of briskflow. Please remove the pursestring suture after 24 hours. Thank you for the opportunity to assist in the care of your patient. Electronically Signed: Victor Manuel Castro MD 04/20/2023 3:57 PM EDT Workstation ID: [id number] Victor Manuel Castro MD IMG IR ORDERABLES Final Result * (ABNORMAL) Basic Metabolic Panel (04/20/2023 8:25 AM EDT) Glucose 126(H) 65 - 99 mg/dL 04/20/2023 8:52 AM EDT [facility] BUN 60(H) 6 - 20 mg/dL 04/20/2023 8:52 AM EDT [facility] Creatinine 9.27(H) 0.76 - 1.27 mg/dL 04/20/2023 8:52 AM EDT [facility] Sodium 139 136 - 145 mmol/L 04/20/2023 8:52 AM EDT [facility] Potassium 4.2 3.5 - 5.2 mmol/L 04/20/2023 8:52 AM EDT [facility] Chloride 99 98 - 107 mmol/L 04/20/2023 8:52 AM EDT [facility] CO2 24.0 22.0 - 29.0 mmol/L 04/20/2023 8:52 AM EDT [facility] Calcium 8.6 8.6 - 10.5 mg/dL 04/20/2023 8:52 AM EDT [facility] BUN/Creatinine Ratio 6.5(L) 7.0 - 25.0 04/20/2023 8:52 AM EDT [facility] Anion Gap 16.0(H) 5.0 - 15.0 mmol/L 04/20/2023 8:52 AM EDT [facility] eGFR 6.4(L) >60.0 mL/min/1.7 3 04/20/2023 8:52 AM EDT [facility] Comment:<15 Indicative of ki dney failure Blood Line / Unknown 04/20/2023 8: 25 AM EDT 04/20/2023 8:29 AM EDT Narrative [facility] - 04/20/2023 8:52 AM EDT GFR Normal >60 Chronic Kidney Disease <60 Kidney Failure <15 Victor Manuel Castro MD LAB BLOOD ORDERABLES Fin al Result [facility]
[address] [place] [address], * (ABNORMAL) CBC Auto Differential (04/20/2023 7:39 AM EDT) WBC 3.83 3.40 - 10.80 10*3/mm3 04/20/2023 8:35 AM EDT [facility] RBC 3.05(L) 4.14 - 5.80 10*6/mm3 04/20/2023 8:35 AM EDT [facility] Hemoglobin 10.1(L) 13.0 - 17.7 g/dL 04/20/2023 8:35 AM EDT [facility] Hematocrit 31.9(L) 37.5 - 51.0 % 04/20/2023 8:35 AM EDT [facility] MCV 104.6(H) 79.0 - 97.0 fL 04/20/2023 8:35 AM EDT [facility] MCH 33.1(H) 26.6 - 33.0 pg 04/20/2023 8:35 AM EDT [facility] MCHC 31.7 31.5 - 35.7 g/dL 04/20/2023 8:35 AM EDT [facility] RDW 14.1 12.3 - 15.4 % 04/20/2023 8:35 AM EDT [facility] RDW-SD 53.8 37.0 - 54.0 fl 04/20/2023 8:35 AM EDT [facility] MPV 9.2 6.0 - 12.0 fL 04/20/2023 8:35 AM EDT [facility] Platelets 224 140 - 450 10*3/mm3 04/20/2023 8:35 AM [facility] Neutrophil % 51.8 42.7 - 76.0 % 04/20/2023 8:35 AM [facility] Lymphocyte % 29.5 19.6 - 45.3 % 04/20/2023 8:35 AM [facility] Monocyte % 10.4 5.0 - 12.0 % 04/20/2023 8:35 AM [facility] Eosinophil % 3.1 0.3 - 6.2 % 04/20/2023 8:35 AM [facility] Basophil % 0.5 0.0 - 1.5 % 04/20/2023 8:35 AM [facility] Immature Grans % 4.7(H) 0.0 - 0.5 % 04/20/2023 8:35 AM [facility] Neutrophils, Absolute 1.98 1.70 - 7.00 10*3/mm3 04/20/2023 8:35 AM [facility] Lymphocytes, Absolute 1.13 0.70 - 3.10 10*3/mm3 04/20/2023 8:35 AM [facility] Monocytes, Absolute 0.40 0.10 - 0.90 10*3/mm3 04/20/2023 8:35 AM [facility] Eosinophils, Absolute 0.12 0.00 - 0.40 10*3/mm3 04/20/2023 8:35 AM [facility] Basophils, Absolute 0.02 0.00 - 0.20 10*3/mm3 04/20/2023 8:35 AM [facility] Immature Grans, Absolute 0.18(H) 0.00 - 0.05 10*3/mm3 04/20/2023 8:35 AM [facility] nRBC 0.0 0.0 - 0.2 /100 WBC 04/20/2023 8:35 AM [facility] Blood Line / Unknown 04/20/2023 7: 39 AM EDT 04/20/2023 8:11 AM EDT Victor Manuel Castro MD LAB BLOOD ORDERABLES Fin al Result [facility]
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, subsequent encounter documented in this encounter Administered Medications Inactive Administered Medications - up to 3 most recent administrations Medication Order MAR Action Action Date Dose Rate Site fentaNYL citrate (PF) (SUBLIMAZE) injection Intravenous, As Needed, Starting on Bobbi 04/20/23 at 0933 Given 04/20/2023 9:59 AM EDT 25 mcg Given 04/20/2023 9:49 AM EDT 25 mcg Given 04/20/2023 9:42 AM EDT 25 mcg iopamidol (ISOVUE-300) 61 % injection - ADS Override Pull Starting on Bobbi 04/20/23 at 0821, For 1 dose, Created by cabinet override Given 04/20/2023 10:25 AM EDT 25 mL lidocaine PF 1% (XYLOCAINE) 1 % injection - ADS Override Pull Starting on Bobbi 04/20/23 at 0821, For 1 dose, Created by cabinet override Given 04/20/2023 10:24 AM EDT 2 mL midazolam (VERSED) injection Intravenous, As Needed, Starting on Bobbi 04/20/23 at 0933 Given 04/20/2023 10:03 AM EDT 0.5 mg Given 04/20/2023 9:49 AM EDT 0.5 mg Given 04/20/2023 9:42 AM EDT 0.5 mg ondansetron (ZOFRAN) 2 mg/mL injection - ADS Override Pull Starting on Bobbi 04/20/23 at 0958, For 1 dose, Created by cabinet override Given 04/20/2023 10:00 AM EDT 4 mg ondansetron (ZOFRAN) injection Intravenous, As Needed, Starting on Bobbi 04/20/23 at 1010 Given 04/20/2023 10:10 AM EDT 4 mg documented in this encounter Care Teams Aircraft Armorer Relationship Specialty Start Date End Date Edgar Fournier MD [address] [place] [address] PCP - General Family Medicine 04/27/20 documented as of this encounter
--- OUTSIDE RECORDS SUMMARY | 2024-07-12 12:15 | XMS_ITS | Encounter Summary ---
Author Organization [facility] Address [address] [id number] Care Team Providers Care Professor Of Theology Name Role Phone Edgar Fournier MD Primary Care Provider [phone] Reason for Visit * Reason Onset Date Comments patient call 05/26/2020 Encounter Details Date Type Department Care Team (Late st Contact Info) Description 05/26/2020 Telephone [facility] NEUROSURGERY [address] [phone] Yinka Garnica MD [address] [facility] [address] [id number] patient call Social History Tobacco Use Types [...] encounter Miscellaneous Notes * Telephone Encounter - Marysol Flores MA - 05/28/2020 10:52 AM EDT Please let Irasema & ET know * Telephone Encounter - Tim Coppola PA-C - 05/28/2020 10:41 AM EDT I have called once again and no answer. Next time he calls please do not let him off the phone until we schedule an appointment and he is aware to show up. We need to evaluate him. * Telephone Encounter - Regla Ruelas - 05/28/2020 9:01 AM EDT Tried to call to schedule patient. There was no answer and no VM option. * Telephone Encounter - Tim Coppola PA-C - 05/27/2020 3:25 PM EDT Please schedule for office visit/ wound check tomorrow * Telephone Encounter - Marysol Flores MA - 05/27/2020 12:46 PM EDT Pt left a message stating he is still not up and walking. He c/o extreme pain when he bends or tries to stand up right. The only position of comfort is lying down. He is requesting a call back. * Telephone Encounter - Tim Coppola PA-C - 05/26/2020 1:29 PM EDT tried to call again, no answer and no way to leave message... patient wasn't walking close to 3 weeks prior to hospital admission, patient is in need of rehabilitation. * Telephone Encounter - Li See - 05/26/2020 11:35 AM EDT Provider:?Nahun Caller: Patient Time of call:?9:52A Phone #:?[phone] Surgery:?L4-5 Lami Surgery Date:?04/29/20 Last visit:?N/A - ED to Hosp Admission Next visit:??06/11/20 Patients LVM stating that patient still has not walked since 05/13. Please call to advise. documented in this encounter Plan of Treatment Not on file documented as of this encounter Visit Diagnoses Not on filedocumented in this encounter Care Teams Professor Of Theology Relationship Specialty Start Date End Date Edgar Fournier MD [address] [place] [address] PCP - General Family Medicine 04/27/20 documented as of this encounter
--- OUTSIDE RECORDS SUMMARY | 2024-07-12 12:15 | XMS_ITS | Encounter Summary ---
Author Organization [facility] Address [address] [id number] Care Team Providers Care Industrial Hygiene Manager Name Role Phone Edgar Fournier MD Primary Care Provider [phone] Reason for Referral * Diagnostic Imaging (Routine) - Closed Specialty Diagnoses / Procedures Referred By Declan hines Referred To Contact Radiology Diagnoses 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, initial encounter End stage renal disease Procedures IR Angioplasty AV Fistula / Graft Arterial Man Sky MD [address] [facility] [address] [place] [address] Phone: tel: fax: Referral ID Status Reason Start Date Expiration Date Visits Re quested Visits Authorized [id number] Closed 03/20/2023 03/19/2024 1 1 Reason for Visit * Diagnostic Imaging (Routine) - Closed Specialty Diagnoses / Procedures Referred By Declan hines Referred To Contact Radiology Diagnoses 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, initial encounter End stage renal disease Procedures IR Angioplasty AV Fistula / Graft Arterial Man Sky MD [address] [facility] [address] [place] [address] Phone: tel: fax: Referral ID Status Reason Start Date Expiration Date Visits Re quested Visits Authorized [id number] Closed 03/20/2023 03/19/2024 1 1 Encounter Details Date Type Department Care Team (Late st Contact Info) Description 03/22/2023 12:30 PM EDT - 03/22/2023 11:59 PM EDT Hospital Encounter [facility] INTERVENTIONAL RADIOLOGY [address] [place] [id number] Man Sky MD [address] [place] [address] 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, initial encounter; End stage renal disease Discharge Disposition: Home or Self Care Social [...] Sign Reading Time Taken Comments Blood Pressure 115/93 03/22/2023 4:00 PM EDT Pulse 103 03/22/2023 4:00 PM EDT Temperature 36.8 ??C (98.3 ??F) 03/22/2023 1:00 PM ED T Respiratory Rate 16 03/22/2023 4:00 PM EDT Oxygen Saturation 96% 03/22/2023 3:45 PM EDT Inhaled Oxygen Concentration - - Weight 133 kg (292 lb 5.3 oz) 03/22/2023 1:00 PM EDT Height 175.3 cm (5' 9 ) 03/22/2023 1:00 PM EDT Body Mass Index 43.17 03/22/2023 1:00 PM EDT documented in this encounter Discharge Instructions * Attachments The following attachments cannot be sent through Care Everywhere. * Dialysis Fistulogram Care After (German) documented in this encounter Medications at Time [...] 1 tablet by mouth 1 (One) Time. NIFEdipine CC (ADALAT CC) 90 MG 24 [...] by mouth Daily. 30 tablet 05/13/2020 4 metoprolol tartrate (LOPRESSOR) 100 MG tablet Take 1 tablet by mouth 2 (Two) Times a Day. 3 mycophenolate (CELLCEPT) 250 MG capsule Take [...] 05/13/2020 3 vitamin D (ERGOCALCIFEROL) 1.25 MG (69851 UT) capsule capsule Take 1 capsule by mouth 2 (Two) Times a Week. Takes on Monday and 4 documented as of this encounter Procedure Notes * Victor Manuel Castro MD - 03/22/2023 12:30 PM EDT [facility] Vascular Interventional Radiology History & Physicial Patient Name:Aiden Stauffer Jr. : 1975 Primary Care Physician: Edgar Fournier MD Referring Physician: Man Sky,* Date of admission: 03/22/2023 Subjective Reason for Consult: L RCF with high pressures and low flow on venous access. History of Present Illness Aiden Stauffer Jr. [...] Procedure: ESOPHAGOGASTRODUODENOSCOPY; Surgeon: Dewey Betancourt MD; Location: [facility] ENDOSCOPY; Service: Gastroenterology; Laterality: N/A; ??? LUMBAR LAMINECTOMY DISCECTOMY DECOMPRESSION N/A 04/29/2020 Procedure: LUMBAR LAMINECTOMY DISCECTOMY DECOMPRESSION POSTERIOR L4-5; Surgeon: Yinka Garnica MD; Location: [facility] OR; Service: Neurosurgery; Laterality: N/A; Family [...] hydrALAZINE, hydrOXYzine pamoate, insulin NPH, lisinopril, methocarbamol, metoprolol tartrate, mycophenolate, ondansetron, vancomycin in dextrose 5% 150 mL, and vi tamin D Current Medications: ??? heparin (porcine) ??? iopamidol ??? lidocaine PF 1% ??? sodium chloride ??? sodium chloride ??? sodium chloride Allergies: He has No Known Allergies. Review of Systems IR Procedure pertinent significant findings are mentioned in the PMH and PSH above. Objective Visit Vitals BP 122/85 Pulse 105 Temp 98.3 ??F (36.8 ??C) (Temporal) Resp 18 Ht 175.3 cm (69 ) Wt 133 kg (292 lb 5.3 oz) SpO2 96% BMI 43.17 kg/m?? Physical Exam A&Ox3. Able to communicate No Apparent Distress Average physique CVS: VS as noted. Chart reviewed. Stable for the procedure. Respiratory: Non labored breathing. No signs of respiratory compromise. Result Review I have personally reviewed the results from the time of this admission to 03/22/2023 14:22 EDT and agree with these findings. [x] Laboratory [] Microbiology [x] Radiology [] EKG/Telemetry [] Cardiology/Vascular [] Pathology [] Old records [] Other: Most notable findings include: As noted: Results from last 7 days Lab Units 03/22/23 1252 INR 1.03 HEMOGLOBIN g/dL 12.0* HEMATOCRIT % 36.1* PLATELETS 10*3/mm3 214 Estimated Creatinine Clearance: 15.9 mL/min (A) (by C-G formula based on SCr of 7.59 mg/dL (H)). Creatinine Date Value Ref Range Status 03/22/2023 7.59 (H) 0.76 - 1.27 mg/dL Final SARS-CoV-2, [...] Test results have been sent to the [facility] in accordance with state requirements. For a fact sheet for healthcare providers, see https://www.FastConnect.gov/media/062017/download. For a fact sheet for patients, see https://www.FastConnect.gov/Local Voice Media/022280/download. No results found for: PREGTESTUR, PREGSERUM, HCG, [...] Victor Manuel Castro MD Vascular Interventional Radiology 03/22/23 2:22 PM EDT * Victor Manuel Castro MD - 03/22/2023 12:30 PM EDT The following procedure was performed: LRCF f-gram Please see corresponding Radiology report for in detail procedural information. The Radiology report will be dictated shortly, if not done so already. Please see the IR RN note for the information regarding medicines administered if any, timothy-procedural vitals and I/O information. documented in this encounter Nursing Notes * Brandy Feliz RN - 03/22/2023 3:26 PM EDT Image guided left upper extremity fistulagram performed per Dr. Castro. Fentanyl 100 mcg & Versed 2 mg given for a sedation time of 25 minutes. Pt tolerated well. Manual pressure applied to siteafter catheter removed. Hemostasis obtained. Dsg to site per protocol. Report called to terrence Chavez inira. documented in this encounter Plan of Treatment Not on file documented as of this encounter Procedures Procedure Name Priority Date/Time Associated Diagnosis Comments IR ANGIOPLASTY AV FIST GRAFT ARTERIAL Routine 03/22/2023 3:32 PM EDT 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, initial encounter End stage renal disease BASIC METABOLIC PANEL STAT 03/22/2023 1:51 PM EDT POCT GLUCOSE FINGERSTICK Routine 03/22/2023 1:29 PM EDT CBC WITH AUTO DIFFERENTIAL STAT 03/22/2023 12:52 PM EDT PROTIME-INR STAT 03/22/2023 12:52 PM EDT CBC AND DIFFERENTIAL STAT 03/22/2023 12:52 PM EDT SCANNED - TELEMETRY 03/22/2023 documented in this encounter Results * IR Angioplasty AV Fistula / Graft Arterial (03/22/2023 3:32 PM EDT) Anatomical Region Laterality Modality Lower Extremities, Upper Extremities N/A X-Ray Angiography, Other 03/23/2023 8:32 AM EDT Impressions 03/23/2023 4:18 PM EDT Impression: ? Left upper arm forearm radiocephalic fistula with hypertrophied and tortuous fistula body with occlusion of the cephalic branch of the outflow vein at the elbow, reflux into the proximal forearm basilic veins and then up the upper arm multiple medial veins, basilic and likely brachial. There is no proximal venous stenosis. On review of the images after the procedure, it appears that a few of the collateral upper veins are smaller caliber likely creating a mismatch between the fistula body and the outflow. This could account for high venous pressure in the fistula and can be addressed by balloon dilatation of some of these outflow veins to match the fistula inflow. We will contact the patient and give him this option. Thank you for the opportunity to assist in the care of your patient. Electronically Signed: Victor Manuel Castro 03/23/2023 4:18 PM EDT Workstation ID: [id number] Narrative 03/23/2023 4:18 PM EDT IR ANGIOPLASTY AV FIST GRAFT ARTERIAL History: R/T increasing venpus pressures in fistula Mail Order Clerk: Victor Manuel Castro M.D. Modality: Sonography and fluoroscopy. ? DOSE REDUCTION: The examination was performed according to departmental dose-optimization program. Fluoro time: 1:0 minutes:seconds. Radiation dose: 46 mGy air Kerma. ?? Sedation: SEDATION: Moderate sedation was administered. 2 milligram of Versed and 100 micrograms of fentanyl IV was used for moderate sedation. Total intra service time of sedation was 25 minutes. The sedation was administered and the patient's vital signs monitored throughout the procedure and recorded in the patient's medical record by the nurse under my direct supervision. Anesthesia: Lidocaine 1% local infiltration. ?? Medicines: None Contrast medium: Isovue 300, 40 cc. Estimated blood loss: ??< 5 cc. [...] the fistula was accessed in antegrade direction approximately 2 to 3 cm from the arterial anastomosis with a micropuncture needle. Through the needle, a 018 guidewire was placed in the fistula followed by placement of a conversion sheath. The sheath was then used for performing a fistulogram, outflow venogram, and a central venogram. Manual compression was held on the downstream fistula during injection of contrast medium to obtain a reflux angiogram of the inflow segments. This is a large radiocephalic fistula with no inflow stenosis, hypertrophied and tortuous forearm cephalic vein. No stenosis in the fistula body, occlusion of the cephalic branch of the antecubital vein with reflux into the proximal forearm basilic veins and outflow via the upper arm basilic and possibly brachial veins. There is no stenosis of the axillary veins, the subclavian at the central veins. No stenosis was obvious at the time of the fistulogram. The access was withdrawn. Hemostasis was secured by manual compression. An aseptic dressing was applied. The patient was discharged in stable condition. Complications: None immediate. ? Findings: As above. Procedure Note Victor Manuel Castro MD - 03/23/2023 IR ANGIOPLASTY AV FIST GRAFT ARTERIAL History: R/T increasing venpus pressures in fistula Mail Order Clerk: Victor Manuel Castro M.D. Modality: Sonography and fluoroscopy. DOSE REDUCTION: The examination was performed according to departmentaldose-optimization program. Fluoro time: 1:0 minutes:seconds. Radiation dose: 46 mGy air Kerma. Sedation: SEDATION: Moderate sedation was administered. 2 milligram of Versed for545 micrograms of fentanyl IV was used for moderate sedation. Total intraservice time of sedation was 25 minutes. The sedation was administered andthe patient's vital signs monitored throughout the procedure and recorded in the patient's medicalrecord by the nurse under my direct supervision. Anesthesia: Lidocaine 1% local infiltration. Medicines: None Contrast medium: Isovue 300, 40 cc. Estimated blood loss: < 5 cc. [...] dermatotomy, the fistula was accessed inantegrade direction approximately 2 to 3 cm from the arterial anastomosiswith a micropuncture needle. Through the needle, a 018 guidewire wasplaced in the fistula followed by placement of a conversion sheath. The sheath was then used for performing afistulogram, outflow venogram, and a central venogram. Manual compressionwas held on the downstream fistula during injection of contrast medium toobtain a reflux angiogram of the inflow segments. This is a large radiocephalic fistula with no inflow stenosis,hypertrophied and tortuous forearm cephalic vein. No stenosis in thefistula body, occlusion of the cephalic branch of the antecubital veinwith reflux into the proximal forearm basilic veins and outflow via the upper arm basilic and possibly brachial veins. Thereis no stenosis of the axillary veins, the subclavian at the centralveins. No stenosis was obvious at the time of the fistulogram. The access was withdrawn. Hemostasis was secured by manual compression. Anaseptic dressing was applied. The patient was discharged in stablecondition. Complications: None immediate. Findings: As above. IMPRESSION: Impression: Left upper arm forearm radiocephalic fistula with hypertrophied andtortuous fistula body with occlusion of the cephalic branch of the outflowvein at the elbow, reflux into the proximal forearm basilic veins and thenup the upper arm multiple medial veins, basilic and likely brachial. There is no proximal venousstenosis. On review of the images after the procedure, it appears that a few of thecollateral upper veins are smaller caliber likely creating a mismatchbetween the fistula body and the outflow. This could account for highvenous pressure in the fistula and can be addressed by balloon dilatation of some of these outflow veins to matchthe fistula inflow. We will contact the patient and give him this option. Thank you for the opportunity to assist in the care of your patient. Electronically Signed: Victor Manuel Castro 03/23/2023 4:18 PM EDT Workstation ID: [id number] us Man Sky MD IMG IR ORDERABLES Yoselin l Result * (ABNORMAL) Basic Metabolic Panel (03/22/2023 1:51 PM EDT) Glucose 137(H) 65 - 99 mg/dL 03/22/2023 2:17 PM EDT [facility] BUN 46(H) 6 - 20 mg/dL 03/22/2023 2:17 PM EDT [facility] Creatinine 7.59(H) 0.76 - 1.27 mg/dL 03/22/2023 2:17 PM EDT [facility] Sodium 137 136 - 145 mmol/L 03/22/2023 2:17 PM EDT [facility] Potassium 5.4(H) 3.5 - 5.2 mmol/L 03/22/2023 2:17 PM EDT [facility] Comment:Slight hemolysis det ected by analyzer. Results may be affected. Chloride 96(L) 98 - 107 mmol/L 03/22/2023 2:17 PM EDT [facility] CO2 25.0 22.0 - 29.0 mmol/L 03/22/2023 2:17 PM EDT [facility] Calcium 8.8 8.6 - 10.5 mg/dL 03/22/2023 2:17 PM EDT [facility] BUN/Creatinine Ratio 6.1(L) 7.0 - 25.0 03/22/2023 2:17 PM EDT [facility] Anion Gap 16.0(H) 5.0 - 15.0 mmol/L 03/22/2023 2:17 PM EDT [facility] eGFR 8.1(L) >60.0 mL/min/1.7 3 03/22/2023 2:17 PM EDT [facility] Comment:<15 Indicative of ki dney failure Blood Line / Unknown 03/22/2023 1: 51 PM EDT 03/22/2023 1:55 PM EDT Narrative [facility] - 03/22/2023 2:17 PM EDT GFR Normal >60 Chronic Kidney Disease <60 Kidney Failure <15 Victor Manuel Castro MD LAB BLOOD ORDERABLES Fin al Result Performing Organization Address City/[facility]/ZIP Co de Phone Number [facility]
[address] [place] [address], * (ABNORMAL) POC Glucose Once (03/22/2023 1:29 PM EDT) Glucose 161(H) 70 - 130 mg/dL 03/22/2023 1:30 PM EDT [facility] Comment:Meter: [id number] Op erator: [id number] Hiren Alvares Blood 03/22/2023 1:29 PM EDT 03/22/2023 1:30 PM EDT Edgar Fournier MD POINT OF CARE TEST ORDERABLES Final Result Performing Organization Address City/[facility]/ZIP Co de Phone Number [facility]
[address] [place] [address], * (ABNORMAL) CBC Auto Differential (03/22/2023 12:52 PM EDT) WBC 5.03 3.40 - 10.80 10*3/mm3 03/22/2023 1:15 PM EDT [facility] RBC 3.51(L) 4.14 - 5.80 10*6/mm3 03/22/2023 1:15 PM EDT [facility] Hemoglobin 12.0(L) 13.0 - 17.7 g/dL 03/22/2023 1:15 PM EDT [facility] Hematocrit 36.1(L) 37.5 - 51.0 % 03/22/2023 1:15 PM EDT [facility] MCV 102.8(H) 79.0 - 97.0 fL 03/22/2023 1:15 PM EDT [facility] MCH 34.2(H) 26.6 - 33.0 pg 03/22/2023 1:15 PM EDT [facility] MCHC 33.2 31.5 - 35.7 g/dL 03/22/2023 1:15 PM EDT [facility] RDW 13.5 12.3 - 15.4 % 03/22/2023 1:15 PM EDT [facility] RDW-SD 50.4 37.0 - 54.0 fl 03/22/2023 1:15 PM EDT [facility] MPV 10.0 6.0 - 12.0 fL 03/22/2023 1:15 PM EDT [facility] Platelets 214 140 - 450 10*3/mm3 03/22/2023 1:15 PM EDT [facility] Neutrophil % 47.4 42.7 - 76.0 % 03/22/2023 1:15 PM EDT [facility] Lymphocyte % 32.0 19.6 - 45.3 % 03/22/2023 1:15 PM EDT [facility] Monocyte % 9.7 5.0 - 12.0 % 03/22/2023 1:15 PM EDT [facility] Eosinophil % 8.9(H) 0.3 - 6.2 % 03/22/2023 1:15 PM EDT [facility] Basophil % 0.2 0.0 - 1.5 % 03/22/2023 1:15 PM EDT [facility] Immature Grans % 1.8(H) 0.0 - 0.5 % 03/22/2023 1:15 PM EDT [facility] Neutrophils, Absolute 2.38 1.70 - 7.00 10*3/mm3 03/22/2023 1:15 PM EDT [facility] Lymphocytes, Absolute 1.61 0.70 - 3.10 10*3/mm3 03/22/2023 1:15 PM EDT [facility] Monocytes, Absolute 0.49 0.10 - 0.90 10*3/mm3 03/22/2023 1:15 PM EDT [facility] Eosinophils, Absolute 0.45(H) 0.00 - 0.40 10*3/mm3 03/22/2023 1:15 PM EDT [facility] Basophils, Absolute 0.01 0.00 - 0.20 10*3/mm3 03/22/2023 1:15 PM EDT [facility] Immature Grans, Absolute 0.09(H) 0.00 - 0.05 10*3/mm3 03/22/2023 1:15 PM EDT [facility] nRBC 0.0 0.0 - 0.2 /100 WBC 03/22/2023 1:15 PM EDT [facility] Blood Line / Unknown 03/22/2023 12 :52 PM EDT 03/22/2023 1:10 PM EDT Victor Manuel Castro MD LAB BLOOD ORDERABLES Fin al Result [facility]
[address] [place] [address], * Protime-INR (03/22/2023 12:52 PM EDT) Protime 13.6 12.2 - 14.5 Seconds 03/22/2023 1:33 PM EDT [facility] INR 1.03 0.89 - 1.12 03/22/2023 1:33 PM EDT [facility] Blood Line / Unknown 03/22/2023 12 :52 PM EDT 03/22/2023 1:10 PM EDT Victor Manuel Castro MD LAB BLOOD ORDERABLES Fin al Result [facility]
[address] [place] [address], * SCANNED - TELEMETRY (03/22/2023) [facility] Onbase ECG ORDERABLES Final Result documented in this encounter Visit Diagnoses Diagnosis 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, initial encounter End stage renal disease documented in this encounter Administered Medications Inactive Administered Medications - up to 3 most recent administrations Medication Order MAR Action Action Date Dose Rate Site fentaNYL citrate (PF) (SUBLIMAZE) injection Intravenous, As Needed, Starting on Mon03/22/23 at 1456 Given 03/22/2023 2:58 PM EDT 50 mcg Given 03/22/2023 2:56 PM EDT 50 mcg iopamidol (ISOVUE-300) 61 % injection - ADS Override Pull Starting on Mon03/22/23 at 1419, For 1 dose, Created by cabinet override Given 03/22/2023 3:32 PM EDT 40 mL lidocaine PF 1% (XYLOCAINE) 1 % injection - ADS Override Pull Starting on Mon03/22/23 at 1420, For 1 dose, Created by cabinet override Given 03/22/2023 3:32 PM EDT 2 mL midazolam (VERSED) injection Intravenous, As Needed, Starting on Mon03/22/23 at 1457 Given 03/22/2023 2:58 PM EDT 1 mg Given 03/22/2023 2:56 PM EDT 1 mg documented in this encounter Care Teams Industrial Hygiene Manager Relationship Specialty Start Date End Date Edgar Fournier MD [address] [place] [address] PCP - General Family Medicine 04/27/20 documented as of this encounter
--- OUTSIDE RECORDS SUMMARY | 2024-07-12 12:15 | XMS_ITS | Encounter Summary ---
Author Organization [facility] Address [address] [place] [address] Care Team Providers Care Granite Cutter Name Role Phone Edgar Fournier MD Primary Care Provider [phone] Encounter Details Date Type Department Care Team (Late st Contact Info) Description 06/09/2020 Readmission Management [facility] NURSE CALL [facility] [address] [place] [phone] Ana Nuñez RN Social History Tobacco Use Types Packs/Day [...] encounter Miscellaneous Notes * Outreach Note - Ana Nuñez RN - 06/09/2020 2:53 PM EDT Sepsis Week 3 Survey [facility]es [facility] the patient have one of the following disease processes/diagnoses(primary or secondary)? Sepsis Week 3 attempt successful? No Unsuccessful attempts Attempt 1 Ana Nuñez RN documented in this encounter Plan of Treatment Not on file documented as of this encounter Visit Diagnoses Not on filedocumented in this encounter Care Teams Granite Cutter Relationship Specialty Start Date End Date Edgar Fournier MD [address] [place] [address] PCP - General Family Medicine 04/27/20 documented as of this encounter
--- OUTSIDE RECORDS SUMMARY | 2024-07-12 12:15 | XMS_ITS | Encounter Summary ---
Author Organization [facility] Address [address] [place] [address] Care Team Providers Care Talent Recruiter Name Role Phone Edgar Fournier MD Primary Care Provider [phone] Encounter Details Date Type Department Care Team (Late st Contact Info) Description 06/01/2020 Readmission Management [facility] NURSE CALL C[facility] [address] [place] [phone] Nely Stovall, RN Social History Tobacco Use Types Packs/Day [...] encounter Miscellaneous Notes * Outreach Note - Nely Stovall, RN - 06/01/2020 4:07 PM EDT Sepsis Week 2 [facility] the patient have one of the following disease processes/diagnoses(primary or secondary)? Sepsis Week 2 attempt successful? Yes Call start time 1611 Call end time 1613 Discharge diagnosis sepsis, discitis, epidural abscess, L5 [...] patient have a primary care provider? Yes Has the patient kept scheduled appointments due by today? Yes What is the Home health agency? [facility] Has home health visited the patient within 72 hours of discharge? Yes Psychosocial issues? No Did the patient receive a copy of their discharge instructions? Yes Nursing interventions Reviewed instructions with patient What is the patient's perception of their health status since discharge? Improving Nursing interventions Nurse provided patient education Is the patient/caregiver able to teach back Sepsis? S - Shivering,fever or very cold, E - Extreme pain or generalized discomfort (worst ever,especially abdomen), P - Pale or discolored skin, S - Sleepy, difficult to arouse,confused, I - I feel like I might -a feeling of hopelessness, S - Short of breath Nursing interventions Nurse provided reassurance to patient Is patient/caregiver able to teach back steps to recovery at home? Set small, achievable goals for return to baseline health, Rest and regain strength Is the patient/caregiver able to teach back signs and symptoms of worsening condition: Fever, Hyperthermia, Rapid heart rate (>90), Shortness of breath/rapid respiratory rate, Altered mental status(confusion/coma), Edema Is the patient/caregiver able to teach back the hierarchy of who to call/visit for symptoms/problems? PCP, Specialist, Home health nurse, Urgent Care, ED, 911 Yes Week 2 call completed? Yes Nely Stovall RN documented in this encounter Plan of Treatment Not on file documented as of this encounter Visit Diagnoses Not on filedocumented in this encounter Care Teams Talent Recruiter Relationship Specialty Start Date End Date Edgar Fournier MD [address] [place], [place] [address] PCP - General Family Medicine 04/27/20 documented as of this encounter
--- OUTSIDE RECORDS SUMMARY | 2024-07-12 12:16 | XMS_ITS | Encounter Summary ---
Author Organization [facility] Address [address] [place] [address] Care Team Providers Care Project Builder Name Role Phone Edgar Fournier MD Primary Care Provider [phone] Reason for Referral * Home Health (Routine) - Closed Specialty Diagnoses / Procedures Referred By Contact Referred To Contact Home Health Services Diagnoses Sepsis with acute organ dysfunction, due to unspecified organism, unspecified type, unspecified whether septic shock present Gabbi Paul II, DO [address] [place] [address] Phone: tel: fax: [facility] REFERR[facility] [address] [place] [address] Phone: tel: Referral ID Status Reason Start Date Expiration Date V isits Requested Visits Authorized [id number] Closed Specialty Services Required 05/13/2020 05/13/2021 1 1 * Surgical (Routine) - Closed Specialty Diagnoses / Procedures Referred By Declan t Referred To Contact Diagnoses Gastrointestinal hemorrhage with melena Procedures Case Request Humza Valadez APRN [address] [facility] [address] [place] [address] Phone: tel: fax: Referral ID Status Reason Start Date Expiration Date Visits Re quested Visits Authorized [id number] Closed 05/03/2020 05/03/2021 1 1 Reason for Visit * Reason Comments Back Pain Multiple complaints * Auth/Cert Specialty Diagnoses / Procedures Referred By Contac t Referred To Contact Diagnoses Acute right-sided low back pain with right-sided sciatica Sepsis Procedures na Referral ID Status Reason Start Date Expiration Date Visits Re quested Visits Authorized [id number] 1 1 Encounter Details Date Type Department Care Team (Late st Contact Info) Description 04/28/2020 1:05 AM EDT - 05/13/2020 4:03 PM EDT Hospital Encounter [address] [place] [id number] Kym Garcia, [address] [place] [address] Keara Berg, DO [address] [place], [place] [id number] Estrella Tai MD Mini, Jocelyn, MD [address] [address] Alverto Ferrera MD [address] [address] Gabbi Paul II, DO [address] [place] [address] Acute right-sided low back pain with right-sided sciatica (Primary Dx); Discitis of lumbar region; Acute renal failure on dialysis; Bandemia; Abscess in epidural space of lumbar spine; Gastrointestinal hemorrhage with melena; Sepsis with acute organ dysfunction, due to unspecified organism, unspecified type, unspecified whether septic shock present Discharge Disposition: Home-Health Care Svc Social History Tobacco Use Types Packs/Day Years [...] Sign Reading Time Taken Comments Blood Pressure 152/102 05/13/2020 12:11 PM EDT Pulse 103 05/13/2020 12:00 PM EDT Temperature 36.7 ??C (98 ??F) 05/13/2020 7:45 AM EDT Respiratory Rate 16 05/13/2020 9:45 AM EDT Oxygen Saturation 95% 05/13/2020 3:20 AM EDT Inhaled Oxygen Concentration - - Weight 122 kg (268 lb) 04/29/2020 3:51 PM EDT Height 170.2 cm (5' 7 ) 04/29/2020 3:51 PM EDT Body Mass Index 41.97 04/29/2020 3:51 PM EDT documented in this encounter Discharge Summaries * Ginger Murphy, RN - 05/13/2020 2:12 PM EDT Images from the original note were not included. RollinsLeoncio W (45 y.o. Male) Date of Social Security Number Address Home Phone MRN 1975 [id number] [place] [address] [id number] [employer] Mar[employer] Status None Admission Date Admission Type Admitting Provider Attending Provider Department, Room/Bed 04/28/20 Emergency Gabbi Paul II, Gabbi Guallpa II, [facility] 3H, S386/1 Discharge Date Discharge Disposition Discharge Destination Home or Self Care Attending Provider: Gabbi Paul II, DO Allergies: No Known Allergies Isolation: None Infection: None Code Status: CPR Ht: 170.2 cm (67 ) Wt: 122 kg (268 lb) Admission Cmt: None Principal Problem: None Active Insurance as of 04/28/2020 Primary Coverage Payor Plan Insurance Group Employer/Plan Group [place] Payor Plan Address Payor Plan Phone Number Payor Plan Fax Number Effective Dates [phone] 04/27/2020 - None Entered [place] [address] Subscriber Name Subscriber Date Member ID LEONCIO ROLLINS 1975 [id number] Emergency Contacts Band Director (Rel.) Home Phone Work Phone Mobile Phone KYM ROLLINS (Spouse) [phone] -- [phone] Emergency Contact Information Name Relation Home Work Mobile KYM ROLLINS Spouse [phone] History & Physical Keara Berg DO at 04/28/20 1152 [facility] Medicine Services HISTORY AND PHYSICAL Patient Name: Leoncio Rollins : 1975 Primary Care Physician: Edgar Fournier MD Date of admission: 04/28/2020 Subjective Subjective Chief Complaint: Back pain, AMS HPI: Leoncio Rollins is a 45 y.o. male with history of liver transplant 2018 secondary to KIM, ESRD on home dialysis 5 days per week, DM who presents with 1 week of back pain, fever and AMS. Patient unable to provide much detail for history. Called patients to discuss patient's care. States he was on the floor working on his dialysis machine 1 week ago and stood up and turned a different way causing acute pain. States he has been laying in bed for multiple days since this time. states this is the 5th time he has been in the ED and they told him it was a flair of a previousinjury. States he doesn't like pain. States he can't tolerate it and he lays around, will take narcotics (prescribed) and will get confused. Fever of 102 over the weekend. States at [place] [facility] they gave him a prescription for keflex and he has not had a fever since. Poor PO intake in 4 days. Small amount of emesis that was dark over the weekend. Last BM was Monday. States prior to this patient was functioning fine with no complaints of back pain. He was compliantwith his dialysis prior to this. Started on dialysis in June or July. States he had dialysis access in his right chest that was removed 2 weeks ago. He has been accessing his left arm five days a week for dialysis at home. denies COVID exposure but he has been to the ED multiple times. Review of Systems Difficult to obtain. Denies current pain and states he had dysuria All other systems reviewed and are negative. Personal History Past Medical History: Diagnosis Date ??? Diabetes mellitus (CMS/HCC) ??? Dialysis patient (CMS/HCC) ??? Hemorrhage THROAT VARICIES ??? Liver transplanted (CMS/HCC) Past Surgical History: Procedure Laterality Date ??? CHOLECYSTECTOMY Family History: family history is not on file. Otherwise pertinent FHx was reviewed and unremarkable. Social History: reports that he has never smoked. He has never used smokeless tobacco. He reports that he does not drink alcohol or use drugs. Social History Social History Narrative ??? Not on file Medications: Available home medication information reviewed. (Not in a hospital admission) No Known Allergies Objective Objective Vital Signs: Temp: [97.8 ??F (36.6 ??C)-98.5 ??F (36.9 ??C)] 98.5 ??F (36.9 ??C) Heart Rate: [94-110] 94 Resp: [18-20] 20 BP: (107-159)/(64-117) 136/87 Physical Exam Constitutional: drowsy but will wake Eyes: PERRLA, sclerae anicteric, no conjunctival injection HENT: NCAT, mucous membranes dry Neck: Supple, no thyromegaly, no lymphadenopathy, trachea midline Respiratory: no coughing; Cardiovascular: RRR, no murmurs, rubs, or gallops, palpable pedal pulses bilaterally Gastrointestinal: Positive bowel sounds, soft, nontender, nondistended Musculoskeletal: No bilateral ankle edema, no clubbing or cyanosis to extremities Psychiatric: Appropriate affect, cooperative Neurologic: Oriented x 3, strength symmetric in all extremities, Cranial Nerves grossly intact to confrontation, speech clear Skin: No rashes Results Reviewed: I have personally reviewed current lab and radiology data. Results from last 7 days Lab Units 04/28/20 0016 WBC 10*3/mm3 15.73* HEMOGLOBIN g/dL 9.3* HEMATOCRIT % 27.2* PLATELETS 10*3/mm3 310 Results from last 7 days Lab Units 04/28/20 0701 04/28/20 0016 SODIUM mmol/L -- -- 129* POTASSIUM mmol/L -- -- 4.3 CHLORIDE mmol/L -- -- 80* CO2 mmol/L -- -- 19.0* BUN mg/dL -- -- 109* CREATININE mg/dL -- -- 14.39* GLUCOSE mg/dL -- -- 285* CALCIUM mg/dL -- -- 9.3 ALT (SGPT) U/L -- -- 48* AST (SGOT) U/L -- -- 24 TROPONIN T ng/mL -- -- 0.154* LACTATE mmol/L 1.3 < > -- < > = values in this interval not displayed. Estimated Creatinine Clearance: 8.1 mL/min (A) (by C-G formula based on SCr of 14.39 mg/dL (H)). Brief Urine Lab Results None Imaging Results (Last 24 Hours) Procedure Component Value Units Date/Time MRI Lumbar Spine Without Contrast [[id number]] Collected: 04/28/20 1058 Updated: 04/28/20 1111 Narrative: EXAMINATION: MRI LUMBAR SPINE WO CONTRAST- INDICATION: lower back pain, eval for epid abscess. positive changes on CT scan; M54.41-Lumbago with sciatica, right side; M46.46-Discitis, unspecified, lumbar region; N17.9-Acute kidney failure, unspecified; Z99.2-Dependence on renal dialysis; D72.825-Bandemia low back pain TECHNIQUE: Routine multiple imaging is obtained lumbar spine without the ministration gadolinium contrast. COMPARISON: CT scan of the lumbar spine dated 04/28/2020 FINDINGS: There is abnormality identified within the L5/S1 level with fluid identified in the disc space and abnormal fluid in signal intensity seen posterior to the L5 level. Bilateral pars defect identified of the L5/S1 level with mild anterolisthesis identified of L5 on S1. There is mass effect on the anterior aspect of the thecal sac. Findings highly concerning for an epidural abscess. There is narrowing identified of the spinal canal. The abnormal fluid collection measures approximately 4.3 x 1.4 x 1.1 cm in its largest dimension. There is signal changes identified within the inferior endplate of L5 and superior endplate of S1 suggesting osteomyelitis. There are degenerative changes identified at the L4/L5 level. No abnormal mass or fluid collection seen within the paraspinal muscles. The remainder of the disc spaces are preserved. Normal signal intensity within the conus. Impression: There are degenerative changes seen at the L4/L5 and L5/S1 levels with osteophyte osteomyelitis and discitis seen of L5 and S1 with fluid collection identified in the epidural space concerning for an epidural abscess. Clinical correlation is needed. There is mass effect on the thecal sac with narrowing and mass effect on the nerve roots bilaterally. CT Abdomen Pelvis Without Contrast [[id number]] Collected: 04/28/20640 Updated: 04/28/20643 Narrative: INDICATION: Post liver transplant with generalized abdominal fullness abdominal pain and low back pain with shortness of breath. TECHNIQUE: CT of the abdomen and pelvis without contrast. Coronal and sagittal reconstructions were obtained. Radiation dose reduction techniques included automated exposure control or exposure modulation basedon body size. Radiation audit for number of CT and nuclear cardiology exams performed in the last year: 0. COMPARISON: None available. FINDINGS: Lung bases: See separate CT chest today Abdomen: Study is limited by lack of IV contrast media. Stomach is very distended with fluid. Please correlate for clinical evidence of gastroparesis or gastric outlet obstruction. There are multiple right upper quadrant surgical clips consistent with liver transplantation. Noncontrast study does not accurately evaluate liver parenchyma. The patient's post cholecystectomy. Unenhanced pancreas is unremarkable. There are probably some left upper quadrant varices. The adrenal glands are unremarkable. There are are no intrarenal calculi. There is bilateral renal parenchymal thinning. There is no hydronephrosis. There is mild perinephric stranding. There is no evidence for abdominal aortic aneurysm. The appendix is radiographically unremarkable. There is no evidence for small bowel obstruction. There is a fat-containing midline anterior abdominal wall hernia with a broad neck that measures about 6.8 cm diameter. The hernia sac is about 11 x 9 cm mL and SI dimension and 4 cm AP dimension. There is colonic gas and stool prominence of the colon but no obstruction point. Pelvis: The bladder is partly decompressed and unremarkable. There is a small fat-containing right inguinal hernia. There is no free fluid in the pelvis. There is no free intraperitoneal air. Impression: 1. Findings consistent with previous liver transplant. 2. Marked distention of the stomach with fluid. Correlate for clinical evidence of gastroparesis versus gastric outlet obstruction. 3. There is a fat-containing anterior abdominal wall incisional hernia sac without bowel obstruction. 4. The appendix is radiographically unremarkable. 5. There our probably some left upper quadrant varices. Study is limited by lack of IV contrast media. Signer Name: Heather Fried MD Signed: 04/28/2020 6:41 AM Workstation Name: [facility] CT Chest Without Contrast [[id number]] Collected: 04/28/20633 Updated: 04/28/20635 Narrative: INDICATION: Liver transplant with generalized abdominal pain low back pain and shortness of breath. ER evaluation TECHNIQUE: CT of the chest without contrast. Coronal and sagittal reconstructions were obtained. Radiation dose reduction techniques included automated exposure control or exposure modulation based on body size. Radiation audit for number of CT and nuclear cardiology exams performed in the last year: 0. COMPARISON: Earlier chest x-ray today FINDINGS: Study is limited by lack of IV contrast media. There is no axillary lymphadenopathy. The esophagus is patulous with wall thickening diffusely and fluid-filled/air-fluid level. Visualized stomach is very distended with fluid. See the abdomen dictation. There is evidence for old granulomatous disease. There is no lymphadenopathy in the mediastinum or debbi by measurement criteria on this noncontrast exam. Heart size is top normal. There is no definite pleural effusion. There is apparently left pleural thickening and areas of parenchymal scarring. There is distortion of parenchymal architecture in the left upper lobe and left upper hilum which is probably chronic. Comparison to any interval outsidechest CT is recommended to confirm stability. There is no pneumothorax. There is no acute infiltrate. There is no congestive failure. Impression: 1. The esophagus is patulous with circumferential wall thickening. Its distended with fluid and air-fluid level. The stomach is distended. See the separate abdomen pelvis dictation. 2. Apparent left pleural thickening and parenchymal scarring with distortion of the left superior hilum. A believe these findings are chronic but recommend comparison to outside chest CT to confirm long-term stability. Please correlate with any history. Study is limited by lack of IV contrast media. 3. Otherwise no active disease is seen in the chest. Signer Name: Heather Fried MD Signed: 04/28/2020 6:34 AM Workstation Name: [facility] CT Lumbar Spine Without Contrast [[id number]] Collected: 04/28/20627 Updated: 04/28/20629 Narrative: INDICATION: Pain and short of breath. Liver transplant patient TECHNIQUE: CT of the lumbar spine without contrast. Coronal and sagittal reconstructions were obtained. Radiation dose reduction techniques included automated exposure control or exposure modulation based on body size. Radiation audit for number of CT and nuclear cardiology exams performed in the last year: 0. COMPARISON: None FINDINGS: There is 3 to 4 mm of grade 1 anterolisthesis of L5 on S1 secondary to chronic L5 pars defects. There is loss of disc height, vacuum disc formation, endplate spondylosis at the inferior endplate of L5. There is irregularity of the inferior endplate of L5 some of which is sclerotic and some of which is nonsclerotic. This could be due to Schmorl's node formation/degenerative disc disease but discitis is not excluded. There are tiny air densities withinthe canal posterior to L4-5 and L5- S1. Scan be seen in the setting of vacuum disc extrusion but the amount seen is more diffuse than typical. An alternateconsideration in an immunocompromised patient with back pain is epidural abscess/discitis and osteomyelitis. Recommend correlation with an MRI lumbar spine with and without contrast if the patient is candidate. Otherwise there is no acute fracture or bone destruction. At T11-12 is facet degenerative change with mild to mass effect on the thecal sac. At T12-L1, no bony canal or foraminal compromise. At L1-2, no canal or foraminal compromise. At L2-3, no canal or foraminal compromise. At L3-4, no canal or foraminal compromise. At L4-5, there is a posterior disc bulge and mild facet degenerative change. Air bubbles are seen in the canal. There is at least some effacement of the thecal sac by the disc bulge. There is likely mild foraminal narrowing. L5-S1 as discussed above. There is no bony canal stenosis. Pars defects accounting for the anterolisthesis. There is bilateral bony foraminal narrowing. Impression: 1. Grade 1 anterolisthesis of L5 on S1 secondary to chronic L5 pars defects. 2. There are air densities within the canal for 5 L5-S1 level. This can be seen in the setting of extruded vacuum disc formation but possibility of an epidural abscess is in the differential and should be excluded with MRI lumbar spine with and without contrast. Additionally there is endplate irregularity at the inferior endplate of L5 could be due to severe degenerative disc disease but alternate diagnosis includes discitis. Signer Name: Heather Fried MD Signed: 04/28/2020 6:28 AM Workstation Name: [facility] XR Chest 1 View [[id number]] Collected: 04/28/20 0158 Updated: 04/28/20 0200 Narrative: CR Chest 1 Vw INDICATION: Weakness and dizziness on arrival COMPARISON: None available. FINDINGS: Single portable AP view(s) of the chest. The heart and mediastinal contours are normal. The lungs are clear. No pneumothorax or pleural effusion. Impression: No acute cardiopulmonary findings. Signer Name: Gabino Herr MD Signed: 04/28/2020 1:58 AM Workstation Name: [email or web address] Assessment/Plan Assessment & Plan Active Hospital Problems Diagnosis POA ??? Sepsis (CMS/HCC) [A41.9] Yes ??? KIM (nonalcoholic steatohepatitis) [K75.81] Unknown ??? History of liver transplant (CMS/HCC) [Z94.4] Not Applicable ??? Immunosuppression (CMS/HCC) [D89.9] Unknown ??? Type 2 diabetes mellitus (CMS/HCC) [E11.9] Unknown ??? Altered mental state [R41.82] Unknown ??? ESRD (end stage renal disease) (CMS/HCC) [N18.6] Unknown ??? Hyponatremia [E87.1] Unknown ??? Discitis [M46.40] Unknown ??? 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] Unknown ??? Leukocytosis [D72.829] Unknown Leoncio Rollins is a 45 y.o. male with history of liver transplant 2018 secondary to KIM, ESRD on home dialysis 5 days per week, DM who presents with 1 week of back pain, fever and AMS found to have discitis and epidural abscess on imaging. Severe sepsis Discitis Epidural abscess - Recent fever, leukocytosis, AMS, lactic acidosis - MRI with degenerative changes L5/L5; L5/S1; L5/S1 with osteomyelitis/discitis and fluid collection concerning for epidural abscess - BCx pending, MRSA PCR pending - Change to zosyn/vanc - ID and neurosurgery consult - Obtain COVID screening - Holding narcotics; tylenol PRN Metabolic encephalopathy - Related to the above, uremia, and likely narcotics - Reduce gabapentin dose - PRN tylenol -- currently pain controlled Gastric distention -CT abdomen pelvis; no evidence of small bowel obstruction -Small amount of vomiting few days ago per -Consult GI Liver transplant on chronic immunosuppression - history of transplant at in 2018 for KIM - Will continue cyclosporine and cellcept -- patient's to bring in patient's entecavir - GI and ID consulted ESRD Uremia Hyponatremia - Currently on home dialysis 5 days per week without having dialysis for the last 3 days - Nephrology consult Anemia - no previous records; obtain additional workup DM - SSI; adjust PRN DVT prophylaxis: SCDs CODE STATUS: Reviewed with - full code Code Status and Medical Interventions: Ordered at: 04/28/20 1125 Code Status: CPR Medical Interventions (Level of Support Prior to Arrest): Full Admission Status: I believe this patient meets INPATIENT status due to severe sepsis, need for IV antibiotics and specialty consultation. I feel patient???s risk for adverse outcomes and need for care warrant INPATIENT evaluation and I predict the patient???s care encounter to likely last beyond 2 midnights. Electronically signed by Keara Berg DO, 04/28/20, 12:38 PM EDT. 1621 Consult Notes (last 48 hours) (Notes from 05/11/20 1412 through 05/13/20 1412) No notes of this type exist for this encounter. Discharge Summary Gabbi Paul II, DO at 05/13/20 1339 [facility] Medicine Services DISCHARGE SUMMARY Patient Name: Leoncio Rollins : 1975 Date of Admission: 04/28/2020 1:05 AM Date of Discharge: 05/13/2020 Primary Care Physician: Edgar Fournier MD Consults Date and Time Order Name Status Description 04/28/2020 1459 Inpatient Nephrology Consult 04/28/2020 1459 Inpatient Infectious Diseases Consult Completed 04/28/2020 1148 Inpatient Neurosurgery Consult Completed 04/28/2020 1130 Inpatient Gastroenterology Consult Completed Hospital Course Presenting Problem: Acute right-sided low back pain with right-sided sciatica [M54.41] Sepsis (CMS/HCC) [A41.9] Active Hospital Problems Diagnosis POA ??? Sepsis (CMS/HCC) [A41.9] Yes ??? KIM (nonalcoholic steatohepatitis) [K75.81] Yes ??? History of liver transplant (CMS/HCC) [Z94.4] Not Applicable ??? Immunosuppression (CMS/HCC) [D89.9] Yes ??? Type 2 diabetes mellitus (CMS/HCC) [E11.9] Yes ??? Altered mental state [R41.82] Yes ??? ESRD (end stage renal disease) (CMS/HCC) [N18.6] Yes ??? Hyponatremia [E87.1] Yes ??? Discitis [M46.40] Yes ??? 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] Yes ??? Leukocytosis [D72.829] Yes Resolved Hospital Problems No resolved problems to display. Hospital Course: Leoncio Rollins??is a 45 y.o.??male??with history of liver transplant 2018 secondary to KIM, ESRD on home dialysis 5 days per week, DM who presents with 1 week of back pain, fever and AMS. ??Found tohave discitis and epidural abscess on imaging.? Severe sepsis (fever, confusion, leukocytosis, lactic acidosis) in setting of immunosuppression Discitis Epidural abscess ?? - MRI L5/S1 with osteomyelitis/discitis and fluid collection concerning for epidural abscess.??Uponarrival, neurosurgery was consulted. ??He underwent L5 laminectomy, epidural abscess I and D on 04/29 without complication. -??ID followed throughout stay. His??wound culture grew Staph epi. Continue IV vanco w/ HD. I have d/w Dr. Cheney, his costume director, who accepts plan. Patient will present to HD center [facility] for vanco following his HD treatments. Continue oral Doxy - His post operative course was complicated by fact that patient was significant barrier to his care. He refused to participate in PT/OT and became adamant regarding being discharged home and also became with belligerent and sexually inappropriate with staff. I had a long discussion with patient and his . At this time given his refusal to participate in his care we have nothing further to offer from an inpatient hospitalization standpoint and since he has a plan in place for outpatient antibiotics he can be safely discharged home from a medical standpoint. Discharge Follow Up Recommendations for outpatient labs/diagnostics: F/U PCP in 1 week F/U Dr Garnica in 2-4 weeks F/U TRAY Rodriguez via telehealth in 1 week Day of Discharge See daily note Pertinent and/or Most Recent Results Results from last 7 days Lab Units 05/11/20 0700 05/08/20 0855 05/07/20 0738 WBC 10*3/mm3 6.60 6.21 9.30 HEMOGLOBIN g/dL 8.3* 7.6* 7.9* HEMATOCRIT % 27.2* 25.0* 25.3* PLATELETS 10*3/mm3 388 447 478* SODIUM mmol/L 134* -- 133* POTASSIUM mmol/L 5.0 -- 3.7 CHLORIDE mmol/L 94* -- 96* CO2 mmol/L 20.0* -- 21.0* BUN mg/dL 65* -- 39* CREATININE mg/dL 8.56* -- 7.56* GLUCOSE mg/dL 115* -- 140* CALCIUM mg/dL 9.2 -- 8.9 Results from last 7 days Lab Units 05/11/20 0700 05/07/20 0738 BILIRUBIN mg/dL 0.2 <0.2 ALK PHOS U/L 80 66 ALT (SGPT) U/L 12 14 AST (SGOT) U/L 14 13 PROTIME Seconds -- 15.8* INR -- 1.30* Invalid input(s): TG, LDLCALC, LDLREALC Brief Urine Lab Results (Last result in the past 365 days) Color Clarity Blood Leuk Est Nitrite Protein CREAT Urine HCG 04/29/20 0144 Yellow Clear Negative Negative Negative >=300 mg/dL (3+) Microbiology Results Abnormal Procedure Component Value - Date/Time Wound Culture - Wound, Spine, Lumbar [[id number]] (Abnormal) (Susceptibility) Collected: 04/29/20 1843 Lab Status: Edited Result - FINAL Specimen: Wound from Spine, Lumbar Updated: 05/07/20 0702 Wound Culture Rare Staphylococcus epidermidis Gram Stain No WBCs or organisms seen Susceptibility Staphylococcus epidermidis GREGORY Clindamycin Susceptible Inducible Clindamycin Resistance Negative Oxacillin Resistant Tetracycline Susceptible Trimethoprim + Sulfamethoxazole Susceptible Vancomycin Susceptible Susceptibility Comments Staphylococcus epidermidis This isolate does not demonstrate inducible clindamycin resistance in vitro. Fungus Culture - Tissue, Back, Lower [[id number]] Collected: 04/29/20 1915 Lab Status: Preliminary result Specimen: Tissue from Back, Lower Updated: 05/06/201999 Fungus Culture No fungus isolated at 1 week AFB Culture - Tissue, Back, Lower [[id number]] Collected: 04/29/201914 Lab Status: Preliminary result Specimen: Tissue from Back, Lower Updated: 05/06/201999 AFB Culture No AFB isolated at 1 week AFB Stain No acid fast bacilli seen on concentrated smear Anaerobic Culture - Tissue, Back, Lower [[id number]] Collected: 04/29/201914 Lab Status: Final result Specimen: Tissue from Back, Lower Updated: 05/04/20 0858 Anaerobic Culture No anaerobes isolated at 5 days Anaerobic Culture - Wound, Spine, Lumbar [[id number]] Collected: 04/29/20 1843 Lab Status: Final result Specimen: Wound from Spine, Lumbar Updated: 05/04/20 0858 Anaerobic Culture No anaerobes isolated at 5 days Blood Culture - Blood, Arm, Right [[id number]] Collected: 04/28/20 0650 Lab Status: Final result Specimen: Blood from Arm, Right Updated: 05/03/20 0800 Blood Culture No growth at 5 days Blood Culture - Blood, Wrist, Right [[id number]] Collected: 04/28/20 0701 Lab Status: Final result Specimen: Blood from Wrist, Right Updated: 05/03/20 0800 Blood Culture No growth at 5 days Tissue / Bone Culture - Tissue, Back, Lower [[id number]] Collected: 04/29/201914 Lab Status: Final result Specimen: Tissue from Back, Lower Updated: 05/02/20 0857 Tissue Culture No growth at 3 days Gram Stain Rare (1+) WBCs seen No organisms seen MRSA Screen, PCR (Inpatient) - Swab, Nares [[id number]] (Normal) Collected: 04/29/20 0150 Lab Status: Final result Specimen: Swab from Nares Updated: 04/29/20 0912 MRSA PCR Negative Narrative: MRSA Negative COVID PRE-OP / PRE-PROCEDURE SCREENING ORDER (NO ISOLATION) - Swab, Nasopharynx [[id number]] (Normal) Collected: 04/28/20 1505 Lab Status: Final result Specimen: Swab from Nasopharynx Updated: 04/28/20 1644 Narrative: The following orders were created for panel order COVID PRE-OP / PRE-PROCEDURE SCREENING ORDER (NO ISOLATION) - Swab, Nasopharynx. Procedure Abnormality Status --------- ------ Respiratory Panel PCR w/...[[id number]] Normal Final result Please view results for these tests on the individual orders. 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 Swab in UTM/VTM, 3-4 HR TAT - Swab, Nasopharynx [[id number]] (Normal) Collected: 04/28/20 1505 Lab Status: Final result Specimen: Swab from Nasopharynx Updated: 04/28/20 1644 ADENOVIRUS, PCR Not Detected Coronavirus 229E Not Detected Coronavirus HKU1 Not Detected Coronavirus NL63 Not Detected Coronavirus OC43 Not Detected COVID19 Not Detected Human Metapneumovirus Not Detected Human Rhinovirus/Enterovirus Not Detected Influenza A PCR Not Detected Influenza A H1 Not Detected Influenza A H1 2009 PCR Not Detected Influenza A H3 Not Detected Influenza B PCR Not Detected Parainfluenza Virus 1 Not Detected Parainfluenza Virus 2 Not Detected Parainfluenza Virus 3 Not Detected Parainfluenza Virus 4 Not Detected RSV, PCR Not Detected Bordetella pertussis pcr Not Detected Bordetella parapertussis PCR Not Detected Chlamydophila pneumoniae PCR Not Detected Mycoplasma pneumo by PCR Not Detected Narrative: Fact sheet for providers: https://docs.[employer]/wp-content/uploads/ITF8429-8951-AT0.1-EUA-Provi qmp-Cfuo-Owjkm-3.pdf Fact sheet for patients: https://docs.[employer]/wp-content/uploads/SYA2180-2690-PT9.9-BSR-Kgjdud s-Utju-Lpmis-1.pdf Imaging Results (All) Procedure Component Value Units Date/Time FL C Arm During Surgery [[id number]] Collected: 04/29/202011 Updated: 04/30/20 1900 Narrative: EXAMINATION: FL C ARM DURING SURGERY - 04/29/2020 INDICATION: M54.41-Lumbago with sciatica, right side; M46.46-Discitis, unspecified, lumbar region; N17.9-Acute kidney failure, unspecified; Z99.2-Dependence on renal dialysis; D72.825-Bandemia; G06.1-Intraspinal abscess and granuloma. Lumbar laminectomy. TECHNIQUE: Intraoperative fluoroscopy for improved localization and treatment planning. COMPARISON: None. FINDINGS: Intraoperative fluoroscopy with total fluoroscopic time usage 10 seconds and 1 image saved during lumbar laminectomy. Impression: Intraoperative fluoroscopy was utilized during lumbar laminectomy. DICTATED: 04/29/2020 EDITED/ls : 04/29/2020 This report was finalized on 04/30/2020 6:[address] Elpidio Dyer. MRI Lumbar Spine Without Contrast [[id number]] Collected: 04/28/20 1058 Updated: 04/29/20 0923 Narrative: EXAMINATION: MRI LUMBAR SPINE WO CONTRAST-04/28/2020: INDICATION: Lower back pain, evaluate for epidural abscess. Positive changes on CT scan; M54.41-Lumbago with sciatica, right side; M46.46-Discitis, unspecified, lumbar region; N17.9-Acute kidney failure, unspecified; Z99.2-Dependence on renal dialysis; D72.825-Bandemia, low back pain. TECHNIQUE: Routine multiplanar imaging was obtained of the lumbar spine without the administration of Gadolinium contrast. COMPARISON: CT scan of the lumbar spine dated 04/28/2020. FINDINGS: There is abnormality identified within the L5/S1 level with fluid identified in the disc space and abnormal fluid and signal intensity seen posterior to the L5 level. Bilateral pars defects identified of the L5/S1 level with mild anterolisthesis identified of L5 on S1. There is mass effect on the anterior aspect of the thecal sac. Findings highly concerning for an epidural abscess. There is narrowing identified of the spinal canal. The abnormal fluid collection measures approximately 4.3 x 1.4 x 1.1 cm in its largest dimension. There is signal changes identified within the inferior endplate of L5 and superior endplate of S1 suggesting osteomyelitis. There are degenerative changes identified of the L4/L5 level. No abnormal mass or fluid collection seen within the paraspinal muscles. The remainder of the disc spaces are preserved. Normal signal intensity within the conus. Impression: There are degenerative changes seen of the L4/L5 and L5/S1 levels with osteomyelitis and discitis seen of L5 and S1 with fluid collection identified in the epidural space concerning for an epidural abscess. Clinical correlation is needed. There is mass effect on the thecal sac with narrowing and mass effect on the nerve roots bilaterally. E: 04/28/2020 This report was finalized on 04/29/2020 9:[address] Abbie Carlson MD. CT Abdomen Pelvis Without Contrast [[id number]] Collected: 04/28/20640 Updated: 04/28/20643 Narrative: INDICATION: Post liver transplant with generalized abdominal fullness abdominal pain and low back pain with shortness of breath. TECHNIQUE: CT of the abdomen and pelvis without contrast. Coronal and sagittal reconstructions were obtained. Radiation dose reduction techniques included automated exposure control or exposure modulation basedon body size. Radiation audit for number of CT and nuclear cardiology exams performed in the last year: 0. COMPARISON: None available. FINDINGS: Lung bases: See separate CT chest today Abdomen: Study is limited by lack of IV contrast media. Stomach is very distended with fluid. Please correlate for clinical evidence of gastroparesis or gastric outlet obstruction. There are multiple right upper quadrant surgical clips consistent with liver transplantation. Noncontrast study does not accurately evaluate liver parenchyma. The patient's post cholecystectomy. Unenhanced pancreas is unremarkable. There are probably some left upper quadrant varices. The adrenal glands are unremarkable. There are are no intrarenal calculi. There is bilateral renal parenchymal thinning. There is no hydronephrosis. There is mild perinephric stranding. There is no evidence for abdominal aortic aneurysm. The appendix is radiographically unremarkable. There is no evidence for small bowel obstruction. There is a fat-containing midline anterior abdominal wall hernia with a broad neck that measures about 6.8 cm diameter. The hernia sac is about 11 x 9 cm mL and SI dimension and 4 cm AP dimension. There is colonic gas and stool prominence of the colon but no obstruction point. Pelvis: The bladder is partly decompressed and unremarkable. There is a small fat-containing right inguinal hernia. There is no free fluid in the pelvis. There is no free intraperitoneal air. Impression: 1. Findings consistent with previous liver transplant. 2. Marked distention of the stomach with fluid. Correlate for clinical evidence of gastroparesis versus gastric outlet obstruction. 3. There is a fat-containing anterior abdominal wall incisional hernia sac without bowel obstruction. 4. The appendix is radiographically unremarkable. 5. There our probably some left upper quadrant varices. Study is limited by lack of IV contrast media. Signer Name: Heather Fried MD Signed: 04/28/2020 6:41 AM Workstation Name: [facility] CT Chest Without Contrast [[id number]] Collected: 04/28/20633 Updated: 04/28/20635 Narrative: INDICATION: Liver transplant with generalized abdominal pain low back pain and shortness of breath. ER evaluation TECHNIQUE: CT of the chest without contrast. Coronal and sagittal reconstructions were obtained. Radiation dose reduction techniques included automated exposure control or exposure modulation based on body size. Radiation audit for number of CT and nuclear cardiology exams performed in the last year: 0. COMPARISON: Earlier chest x-ray today FINDINGS: Study is limited by lack of IV contrast media. There is no axillary lymphadenopathy. The esophagus is patulous with wall thickening diffusely and fluid-filled/air-fluid level. Visualized stomach is very distended with fluid. See the abdomen dictation. There is evidence for old granulomatous disease. There is no lymphadenopathy in the mediastinum or debbi by measurement criteria on this noncontrast exam. Heart size is top normal. There is no definite pleural effusion. There is apparently left pleural thickening and areas of parenchymal scarring. There is distortion of parenchymal architecture in the left upper lobe and left upper hilum which is probably chronic. Comparison to any interval outsidechest CT is recommended to confirm stability. There is no pneumothorax. There is no acute infiltrate. There is no congestive failure. Impression: 1. The esophagus is patulous with circumferential wall thickening. Its distended with fluid and air-fluid level. The stomach is distended. See the separate abdomen pelvis dictation. 2. Apparent left pleural thickening and parenchymal scarring with distortion of the left superior hilum. A believe these findings are chronic but recommend comparison to outside chest CT to confirm long-term stability. Please correlate with any history. Study is limited by lack of IV contrast media. 3. Otherwise no active disease is seen in the chest. Signer Name: Heather Fried MD Signed: 04/28/2020 6:34 AM Workstation Name: [facility] CT Lumbar Spine Without Contrast [[id number]] Collected: 04/28/20627 Updated: 04/28/20629 Narrative: INDICATION: Pain and short of breath. Liver transplant patient TECHNIQUE: CT of the lumbar spine without contrast. Coronal and sagittal reconstructions were obtained. Radiation dose reduction techniques included automated exposure control or exposure modulation based on body size. Radiation audit for number of CT and nuclear cardiology exams performed in the last year: 0. COMPARISON: None FINDINGS: There is 3 to 4 mm of grade 1 anterolisthesis of L5 on S1 secondary to chronic L5 pars defects. There is loss of disc height, vacuum disc formation, endplate spondylosis at the inferior endplate of L5. There is irregularity of the inferior endplate of L5 some of which is sclerotic and some of which is nonsclerotic. This could be due to Schmorl's node formation/degenerative disc disease but discitis is not excluded. There are tiny air densities withinthe canal posterior to L4-5 and L5- S1. Scan be seen in the setting of vacuum disc extrusion but the amount seen is more diffuse than typical. An alternateconsideration in an immunocompromised patient with back pain is epidural abscess/discitis and osteomyelitis. Recommend correlation with an MRI lumbar spine with and without contrast if the patient is candidate. Otherwise there is no acute fracture or bone destruction. At T11-12 is facet degenerative change with mild to mass effect on the thecal sac. At T12-L1, no bony canal or foraminal compromise. At L1-2, no canal or foraminal compromise. At L2-3, no canal or foraminal compromise. At L3-4, no canal or foraminal compromise. At L4-5, there is a posterior disc bulge and mild facet degenerative change. Air bubbles are seen in the canal. There is at least some effacement of the thecal sac by the disc bulge. There is likely mild foraminal narrowing. L5-S1 as discussed above. There is no bony canal stenosis. Pars defects accounting for the anterolisthesis. There is bilateral bony foraminal narrowing. Impression: 1. Grade 1 anterolisthesis of L5 on S1 secondary to chronic L5 pars defects. 2. There are air densities within the canal for 5 L5-S1 level. This can be seen in the setting of extruded vacuum disc formation but possibility of an epidural abscess is in the differential and should be excluded with MRI lumbar spine with and without contrast. Additionally there is endplate irregularity at the inferior endplate of L5 could be due to severe degenerative disc disease but alternate diagnosis includes discitis. Signer Name: Heather Fried MD Signed: 04/28/2020 6:28 AM Workstation Name: [facility] XR Chest 1 View [[id number]] Collected: 04/28/20157 Updated: 04/28/20199 Narrative: CR Chest 1 Vw INDICATION: Weakness and dizziness on arrival COMPARISON: None available. FINDINGS: Single portable AP view(s) of the chest. The heart and mediastinal contours are normal. The lungs are clear. No pneumothorax or pleural effusion. Impression: No acute cardiopulmonary findings. Signer Name: Gabino Herr MD Signed: 04/28/2020 1:58 AM Workstation Name: [facility] Plan for Follow-up of Pending Labs/Results: [facility] Pending Labs Order Current Status AFB Culture - Tissue, Back, Lower Preliminary result Fungus Culture - Tissue, Back, Lower Preliminary result Discharge Details Discharge Medications New Medications Instructions Start Date doxycycline 100 MG capsule Commonly known as: MONODOX 100 mg, Oral, Every 12 Hours Scheduled HYDROcodone-acetaminophen 5-325 MG per tablet Commonly known as: NORCO 1 tablet, Oral, Every 4 Hours PRN lisinopril 40 MG tablet Commonly known as: PRINIVIL,ZESTRIL 40 mg, Oral, Daily vancomycin in dextrose 5% 150 mL 750-5 MG/150ML-% IVPB Commonly known as: VANCOCIN 750 mg, Intravenous, Every 48 Hours, After HD Continue These Medications Instructions Start Date ALPRAZolam 1 MG tablet Commonly known as: XANAX 1 mg, Oral, Daily, Take before dialysis aspirin 81 MG chewable tablet 81 mg, Oral, Daily carBAMazepine 200 MG tablet Commonly known as: TEGretol 200 mg, Oral, Nightly, For feet cramps cyclobenzaprine 10 MG tablet Commonly known as: FLEXERIL 10 mg, Oral, 3 Times Daily PRN cycloSPORINE modified 25 MG capsule Commonly known as: NEORAL 50 mg, Oral, 2 Times Daily doxazosin 8 MG tablet Commonly known as: CARDURA 8 mg, Oral, Nightly PRN entecavir 0.5 MG tablet Commonly known as: BARACLUDE 0.5 mg, Oral, Daily, For 7 days, started 04-27-20 famotidine 20 MG tablet Commonly known as: PEPCID 20 mg, Oral, 2 Times Daily PRN gabapentin 800 MG tablet Commonly known as: NEURONTIN 1,200 mg, Oral, 3 Times Daily hydrALAZINE 50 MG tablet Commonly known as: APRESOLINE 300 mg, Oral, 3 Times Daily hydrOXYzine pamoate 25 MG capsule Commonly known as: VISTARIL 25 mg, Oral, Daily, 1 hr prior to dialysis insulin NPH 100 UNIT/ML injection Commonly known as: humuLIN N,novoLIN N Subcutaneous, 2 Times Daily Before Meals, 48 units qam and 15 units qhs metoprolol tartrate 100 MG tablet Commonly known as: LOPRESSOR 100 mg, Oral, 2 Times Daily mycophenolate 250 MG capsule Commonly known as: CELLCEPT 250 mg, Oral, 2 Times Daily NIFEdipine CC 90 MG 24 hr tablet Commonly known as: ADALAT CC 90 mg, Oral, 2 Times Daily ondansetron 4 MG tablet Commonly known as: ZOFRAN 4 mg, Oral, Every 8 Hours PRN vitamin D 1.25 MG (58306 UT) capsule capsule Commonly known as: ERGOCALCIFEROL 50,000 Units, Oral, 2 Times Weekly, Takes on Monday and Stop These Medications cephalexin 500 MG capsule Commonly known as: KEFLEX No Known Allergies Discharge Disposition: Home or Self Care Diet: Hospital: Diet Order Procedures ??? Diet Regular; Consistent Carbohydrate, Low Fiber / Low Residue, Low Fat CODE STATUS: Code Status and Medical Interventions: Ordered at: 04/28/20 1125 Code Status: CPR Medical Interventions (Level of Support Prior to Arrest): Full No future appointments. Additional Instructions for the Follow-ups that You Need to Schedule Discharge Follow-up with PCP As directed Currently Documented PCP: Edgar Fournier MD PCP Follow Up Details: 1-2 week hospital follow up Discharge Follow-up with Specialty: TRAY Rodriguez via telehealth; 1 Week As directed Specialty: TRAY Rodriguez via telehealth Follow Up: 1 Week Discharge Follow-up with Specialty: ADÁN Garnica; 1 Month As directed Specialty: ADÁN Garnica Follow Up: 1 [facility] Time Spent on Discharge: I spent 45 minutes on this discharge activity which included: [id number] with the patient, reviewing the data in the system, coordination of the care with the nursing staff as well as consultants, documentation, and entering orders. 1346 * Gabbi Paul II, DO - 05/13/2020 1:39 PM EDT Images from the original note were not included. [facility] Medicine Services DISCHARGE SUMMARY Patient Name: Leoncio Rollins : 1975 Date of Admission: 04/28/2020 1:05 AM Date of Discharge: 05/13/2020 Primary Care Physician: Edgar Fournier MD Consults Date and Time Order Name Status Description 04/28/2020 1459 Inpatient Nephrology Consult 04/28/2020 1459 Inpatient Infectious Diseases Consult Completed 04/28/2020 1148 Inpatient Neurosurgery Consult Completed 04/28/2020 1130 Inpatient Gastroenterology Consult Completed Hospital Course Presenting Problem: Acute right-sided low back pain with right-sided sciatica [M54.41] Sepsis (CMS/HCC) [A41.9] Active Hospital Problems Diagnosis POA ??? Sepsis (CMS/HCC) [A41.9] Yes ??? KIM (nonalcoholic steatohepatitis) [K75.81] Yes ??? History of liver transplant (CMS/HCC) [Z94.4] Not Applicable ??? Immunosuppression (CMS/HCC) [D89.9] Yes ??? Type 2 diabetes mellitus (CMS/HCC) [E11.9] Yes ??? Altered mental state [R41.82] Yes ??? ESRD (end stage renal disease) (CMS/HCC) [N18.6] Yes ??? Hyponatremia [E87.1] Yes ??? Discitis [M46.40] Yes ??? 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] Yes ??? Leukocytosis [D72.829] Yes Resolved Hospital Problems No resolved problems to display. Hospital Course: Leoncio Rollins??is a 45 y.o.??male??with history of liver transplant 2018 secondary to KIM, ESRD on home dialysis 5 days per week, DM who presents with 1 week of back pain, fever and AMS. ??Found tohave discitis and epidural abscess on imaging.? Severe sepsis (fever, confusion, leukocytosis, lactic acidosis) in setting of immunosuppression Discitis Epidural abscess ?? - MRI L5/S1 with osteomyelitis/discitis and fluid collection concerning for epidural abscess.??Uponarrival, neurosurgery was consulted. ??He underwent L5 laminectomy, epidural abscess I and D on 04/29 without complication. -??ID followed throughout stay. His??wound culture grew Staph epi. Continue IV vanco w/ HD. I have d/w Dr. Cheney, his costume director, who accepts plan. Patient will present to HD center [facility] for vanco following his HD treatments. Continue oral Doxy - His post operative course was complicated by fact that patient was significant barrier to his care. He refused to participate in PT/OT and became adamant regarding being discharged home and also became with belligerent and sexually inappropriate with staff. I had a long discussion with patient and his . At this time given his refusal to participate in his care we have nothing further to offer from an inpatient hospitalization standpoint and since he has a plan in place for outpatient antibiotics he can be safely discharged home from a medical standpoint. Discharge Follow Up Recommendations for outpatient labs/diagnostics: F/U PCP in 1 week F/U Dr Garnica in 2-4 weeks F/U TRAY - Michael via telehealth in 1 week Day of Discharge See daily note Pertinent and/or Most Recent Results Results from last 7 days Lab Units 05/11/20 0700 05/08/20 0855 05/07/20 0738 WBC 10*3/mm3 6.60 6.21 9.30 HEMOGLOBIN g/dL 8.3* 7.6* 7.9* HEMATOCRIT % 27.2* 25.0* 25.3* PLATELETS 10*3/mm3 388 447 478* SODIUM mmol/L 134* -- 133* POTASSIUM mmol/L 5.0 -- 3.7 CHLORIDE mmol/L 94* -- 96* CO2 mmol/L 20.0* -- 21.0* BUN mg/dL 65* -- 39* CREATININE mg/dL 8.56* -- 7.56* GLUCOSE mg/dL 115* -- 140* CALCIUM mg/dL 9.2 -- 8.9 Results from last 7 days Lab Units 05/11/20 0700 05/07/20 0738 BILIRUBIN mg/dL 0.2 <0.2 ALK PHOS U/L 80 66 ALT (SGPT) U/L 12 14 AST (SGOT) U/L 14 13 PROTIME Seconds -- 15.8* INR -- 1.30* Invalid input(s): TG, LDLCALC, LDLREALC Brief Urine Lab Results (Last result in the past 365 days) Color Clarity Blood Leuk Est Nitrite Protein CREAT Urine HCG 04/29/20 0144 Yellow Clear Negative Negative Negative >=300 mg/dL (3+) Microbiology Results Abnormal Procedure Component Value - Date/Time Wound Culture - Wound, Spine, Lumbar [[id number]] (Abnormal) (Susceptibility) Collected: 04/29/201842 Lab Status: Edited Result - FINAL Specimen: Wound from Spine, Lumbar Updated: 05/07/20 0702 Wound Culture Rare Staphylococcus epidermidis Gram Stain No WBCs or organisms seen Susceptibility Staphylococcus epidermidis GREGORY Clindamycin Susceptible Inducible Clindamycin Resistance Negative Oxacillin Resistant Tetracycline Susceptible Trimethoprim + Sulfamethoxazole Susceptible Vancomycin Susceptible Susceptibility Comments Staphylococcus epidermidis This isolate does not demonstrate inducible clindamycin resistance in vitro. Fungus Culture - Tissue, Back, Lower [[id number]] Collected: 04/29/201914 Lab Status: Preliminary result Specimen: Tissue from Back, Lower Updated: 05/06/201999 Fungus Culture No fungus isolated at 1 week AFB Culture - Tissue, Back, Lower [[id number]] Collected: 04/29/201914 Lab Status: Preliminary result Specimen: Tissue from Back, Lower Updated: 05/06/201999 AFB Culture No AFB isolated at 1 week AFB Stain No acid fast bacilli seen on concentrated smear Anaerobic Culture - Tissue, Back, Lower [[id number]] Collected: 04/29/201914 Lab Status: Final result Specimen: Tissue from Back, Lower Updated: 05/04/20 0858 Anaerobic Culture No anaerobes isolated at 5 days Anaerobic Culture - Wound, Spine, Lumbar [[id number]] Collected: 04/29/201842 Lab Status: Final result Specimen: Wound from Spine, Lumbar Updated: 05/04/20 0858 Anaerobic Culture No anaerobes isolated at 5 days Blood Culture - Blood, Arm, Right [[id number]] Collected: 04/28/20 0650 Lab Status: Final result Specimen: Blood from Arm, Right Updated: 05/03/20 0800 Blood Culture No growth at 5 days Blood Culture - Blood, Wrist, Right [[id number]] Collected: 04/28/20 0701 Lab Status: Final result Specimen: Blood from Wrist, Right Updated: 05/03/20 0800 Blood Culture No growth at 5 days Tissue / Bone Culture - Tissue, Back, Lower [[id number]] Collected: 04/29/20 1915 Lab Status: Final result Specimen: Tissue from Back, Lower Updated: 05/02/20 0857 Tissue Culture No growth at 3 days Gram Stain Rare (1+) WBCs seen No organisms seen MRSA Screen, PCR (Inpatient) - Swab, Nares [[id number]] (Normal) Collected: 04/29/20 0150 Lab Status: Final result Specimen: Swab from Nares Updated: 04/29/20 0912 MRSA PCR Negative Narrative: MRSA Negative COVID PRE-OP / PRE-PROCEDURE SCREENING ORDER (NO ISOLATION) - Swab, Nasopharynx [[id number]] (Normal) Collected: 04/28/20 1505 Lab Status: Final result Specimen: Swab from Nasopharynx Updated: 04/28/20 164 Narrative: The following orders were created for panel order COVID PRE-OP / PRE-PROCEDURE SCREENING ORDER (NO ISOLATION) - Swab, Nasopharynx. Procedure Abnormality Status --------- ------ Respiratory Panel PCR w/...[[id number]] Normal Final result Please view results for these tests on the individual orders. 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 Swab in UTM/MSM, 3-4 HR TAT - Swab, Nasopharynx [[id number]] (Normal) Collected: 04/28/20 1505 Lab Status: Final result Specimen: Swab from Nasopharynx Updated: 04/28/20 1644 ADENOVIRUS, PCR Not Detected Coronavirus 229E Not Detected Coronavirus HKU1 Not Detected Coronavirus NL63 Not Detected Coronavirus OC43 Not Detected COVID19 Not Detected Human Metapneumovirus Not Detected Human Rhinovirus/Enterovirus Not Detected Influenza A PCR Not Detected Influenza A H1 Not Detected Influenza A H1 2008 PCR Not Detected Influenza A H3 Not Detected Influenza B PCR Not Detected Parainfluenza Virus 1 Not Detected Parainfluenza Virus 2 Not Detected Parainfluenza Virus 3 Not Detected Parainfluenza Virus 4 Not Detected RSV, PCR Not Detected Bordetella pertussis pcr Not Detected Bordetella parapertussis PCR Not Detected Chlamydophila pneumoniae PCR Not Detected Mycoplasma pneumo by PCR Not Detected Narrative: Fact sheet for providers: https://docs.[employer]/wp-content/uploads/WFM4867-9320-OD4.1-EUA-Provi wrk-Jmjk-Anszo-3.pdf Fact sheet for patients: https://docs.[employer]/wp-content/uploads/GQL5647-2080-AA3.6-KIU-Lbhejr d-Ilzh-Kakml-1.pdf Imaging Results (All) Procedure Component Value Units Date/Time FL C Arm During Surgery [[id number]] Collected: 04/29/202011 Updated: 04/30/20 190 Narrative: EXAMINATION: FL C ARM DURING SURGERY - 04/29/2020 INDICATION: M54.41-Lumbago with sciatica, right side; M46.46-Discitis, unspecified, lumbar region; N17.9-Acute kidney failure, unspecified; Z99.2-Dependence on renal dialysis; D72.825-Bandemia; G06.1-Intraspinal abscess and granuloma. Lumbar laminectomy. TECHNIQUE: Intraoperative fluoroscopy for improved localization and treatment planning. COMPARISON: None. FINDINGS: Intraoperative fluoroscopy with total fluoroscopic time usage 10 seconds and 1 image saved during lumbar laminectomy. Impression: Intraoperative fluoroscopy was utilized during lumbar laminectomy. DICTATED: 04/29/2020 EDITED/ls : 04/29/2020 This report was finalized on 04/30/2020 6:[address] Elpidio Dyer. MRI Lumbar Spine Without Contrast [[id number]] Collected: 04/28/20 1058 Updated: 04/29/20922 Narrative: EXAMINATION: MRI LUMBAR SPINE WO CONTRAST-04/28/2020: INDICATION: Lower back pain, evaluate for epidural abscess. Positive changes on CT scan; M54.41-Lumbago with sciatica, right side; M46.46-Discitis, unspecified, lumbar region; N17.9-Acute kidney failure, unspecified; Z99.2-Dependence on renal dialysis; D72.825-Bandemia, low back pain. TECHNIQUE: Routine multiplanar imaging was obtained of the lumbar spine without the administration of Gadolinium contrast. COMPARISON: CT scan of the lumbar spine dated 04/28/2020. FINDINGS: There is abnormality identified within the L5/S1 level with fluid identified in the disc space and abnormal fluid and signal intensity seen posterior to the L5 level. Bilateral pars defects identified of the L5/S1 level with mild anterolisthesis identified of L5 on S1. There is mass effect on the anterior aspect of the thecal sac. Findings highly concerning for an epidural abscess. There is narrowing identified of the spinal canal. The abnormal fluid collection measures approximately 4.3 x 1.4 x 1.1 cm in its largest dimension. There is signal changes identified within the inferior endplate of L5 and superior endplate of S1 suggesting osteomyelitis. There are degenerative changes identified of the L4/L5 level. No abnormal mass or fluid collection seen within the paraspinal muscles. The remainder of the disc spaces are preserved. Normal signal intensity within the conus. Impression: There are degenerative changes seen of the L4/L5 and L5/S1 levels with osteomyelitis and discitis seen of L5 and S1 with fluid collection identified in the epidural space concerning for an epidural abscess. Clinical correlation is needed. There is mass effect on the thecal sac with narrowing and mass effect on the nerve roots bilaterally. E: 04/28/2020 This report was finalized on 04/29/2020 9:[address] Abbie Carlson MD. CT Abdomen Pelvis Without Contrast [[id number]] Collected: 04/28/20640 Updated: 04/28/20643 Narrative: INDICATION: Post liver transplant with generalized abdominal fullness abdominal pain and low back pain with shortness of breath. TECHNIQUE: CT of the abdomen and pelvis without contrast. Coronal and sagittal reconstructions were obtained. Radiation dose reduction techniques included automated exposure control or exposure modulation basedon body size. Radiation audit for number of CT and nuclear cardiology exams performed in the last year: 0. COMPARISON: None available. FINDINGS: Lung bases: See separate CT chest today Abdomen: Study is limited by lack of IV contrast media. Stomach is very distended with fluid. Please correlate for clinical evidence of gastroparesis or gastric outlet obstruction. There are multiple right upper quadrant surgical clips consistent with liver transplantation. Noncontrast study does not accurately evaluate liver parenchyma. The patient's post cholecystectomy. Unenhanced pancreas is unremarkable. There are probably some left upper quadrant varices. The adrenal glands are unremarkable. There are are no intrarenal calculi. There is bilateral renal parenchymal thinning. There is no hydronephrosis. There is mild perinephric stranding. There is no evidence for abdominal aortic aneurysm. The appendix is radiographically unremarkable. There is no evidence for small bowel obstruction. There is a fat-containing midline anterior abdominal wall hernia with a broad neck that measures about 6.8 cm diameter. The hernia sac is about 11 x 9 cm mL and SI dimension and 4 cm AP dimension. There is colonic gas and stool prominence of the colon but no obstruction point. Pelvis: The bladder is partly decompressed and unremarkable. There is a small fat-containing right inguinal hernia. There is no free fluid in the pelvis. There is no free intraperitoneal air. Impression: 1. Findings consistent with previous liver transplant. 2. Marked distention of the stomach with fluid. Correlate for clinical evidence of gastroparesis versus gastric outlet obstruction. 3. There is a fat-containing anterior abdominal wall incisional hernia sac without bowel obstruction. 4. The appendix is radiographically unremarkable. 5. There our probably some left upper quadrant varices. Study is limited by lack of IV contrast media. Signer Name: Heather Fried MD Signed: 04/28/2020 6:41 AM Workstation Name: [facility] CT Chest Without Contrast [[id number]] Collected: 04/28/2034 Updated: 04/28/2036 Narrative: INDICATION: Liver transplant with generalized abdominal pain low back pain and shortness of breath. ER evaluation TECHNIQUE: CT of the chest without contrast. Coronal and sagittal reconstructions were obtained. Radiation dose reduction techniques included automated exposure control or exposure modulation based on body size. Radiation audit for number of CT and nuclear cardiology exams performed in the last year: 0. COMPARISON: Earlier chest x-ray today FINDINGS: Study is limited by lack of IV contrast media. There is no axillary lymphadenopathy. The esophagus is patulous with wall thickening diffusely and fluid-filled/air-fluid level. Visualized stomach is very distended with fluid. See the abdomen dictation. There is evidence for old granulomatous disease. There is no lymphadenopathy in the mediastinum or debbi by measurement criteria on this noncontrast exam. Heart size is top normal. There is no definite pleural effusion. There is apparently left pleural thickening and areas of parenchymal scarring. There is distortion of parenchymal architecture in the left upper lobe and left upper hilum which is probably chronic. Comparison to any interval outsidechest CT is recommended to confirm stability. There is no pneumothorax. There is no acute infiltrate. There is no congestive failure. Impression: 1. The esophagus is patulous with circumferential wall thickening. Its distended with fluid and air-fluid level. The stomach is distended. See the separate abdomen pelvis dictation. 2. Apparent left pleural thickening and parenchymal scarring with distortion of the left superior hilum. A believe these findings are chronic but recommend comparison to outside chest CT to confirm long-term stability. Please correlate with any history. Study is limited by lack of IV contrast media. 3. Otherwise no active disease is seen in the chest. Signer Name: Heather Fried MD Signed: 04/28/2020 6:34 AM Workstation Name: [email or web address] [place] CT Lumbar Spine Without Contrast [[id number]] Collected: 04/28/20627 Updated: 04/28/20629 Narrative: INDICATION: Pain and short of breath. Liver transplant patient TECHNIQUE: CT of the lumbar spine without contrast. Coronal and sagittal reconstructions were obtained. Radiation dose reduction techniques included automated exposure control or exposure modulation based on body size. Radiation audit for number of CT and nuclear cardiology exams performed in the last year: 0. COMPARISON: None FINDINGS: There is 3 to 4 mm of grade 1 anterolisthesis of L5 on S1 secondary to chronic L5 pars defects. There is loss of disc height, vacuum disc formation, endplate spondylosis at the inferior endplate of L5. There is irregularity of the inferior endplate of L5 some of which is sclerotic and some of which is nonsclerotic. This could be due to Schmorl's node formation/degenerative disc disease but discitis is not excluded. There are tiny air densities withinthe canal posterior to L4-5 and L5- S1. Scan be seen in the setting of vacuum disc extrusion but the amount seen is more diffuse than typical. An alternateconsideration in an immunocompromised patient with back pain is epidural abscess/discitis and osteomyelitis. Recommend correlation with an MRI lumbar spine with and without contrast if the patient is candidate. Otherwise there is no acute fracture or bone destruction. At T11-12 is facet degenerative change with mild to mass effect on the thecal sac. At T12-L1, no bony canal or foraminal compromise. At L1-2, no canal or foraminal compromise. At L2-3, no canal or foraminal compromise. At L3-4, no canal or foraminal compromise. At L4-5, there is a posterior disc bulge and mild facet degenerative change. Air bubbles are seen in the canal. There is at least some effacement of the thecal sac by the disc bulge. There is likely mild foraminal narrowing. L5-S1 as discussed above. There is no bony canal stenosis. Pars defects accounting for the anterolisthesis. There is bilateral bony foraminal narrowing. Impression: 1. Grade 1 anterolisthesis of L5 on S1 secondary to chronic L5 pars defects. 2. There are air densities within the canal for 5 L5-S1 level. This can be seen in the setting of extruded vacuum disc formation but possibility of an epidural abscess is in the differential and should be excluded with MRI lumbar spine with and without contrast. Additionally there is endplate irregularity at the inferior endplate of L5 could be due to severe degenerative disc disease but alternate diagnosis includes discitis. Signer Name: Heather Fried MD Signed: 04/28/2020 6:28 AM Workstation Name: [email or web address] XR Chest 1 View [[id number]] Collected: 04/28/20 0158 Updated: 04/28/20199 Narrative: CR Chest 1 Vw INDICATION: Weakness and dizziness on arrival COMPARISON: None available. FINDINGS: Single portable AP view(s) of the chest. The heart and mediastinal contours are normal. The lungs are clear. No pneumothorax or pleural effusion. Impression: No acute cardiopulmonary findings. Signer Name: Gabino Herr MD Signed: 04/28/2020 1:58 AM Workstation Name: [email or web address] Plan for Follow-up of [facility]ending [facility] Order Current Status AFB Culture - Tissue, Back, Lower Preliminary result Fungus Culture - Tissue, Back, Lower Preliminary result Discharge Details Discharge Medications New Medications Instructions Start Date doxycycline 100 MG capsule Commonly known as: MONODOX 100 mg, Oral, Every 12 Hours Scheduled HYDROcodone-acetaminophen 5-325 MG per tablet Commonly known as: NORCO 1 tablet, Oral, Every 4 Hours PRN lisinopril 40 MG tablet Commonly known as: PRINIVIL,ZESTRIL 40 mg, Oral, Daily vancomycin in dextrose 5% 150 mL 750-5 MG/150ML-% IVPB Commonly known as: VANCOCIN 750 mg, Intravenous, Every 48 Hours, After HD Continue These Medications Instructions Start Date ALPRAZolam 1 MG tablet Commonly known as: XANAX 1 mg, Oral, Daily, Take before dialysis aspirin 81 MG chewable tablet 81 mg, Oral, Daily carBAMazepine 200 MG tablet Commonly known as: TEGretol 200 mg, Oral, Nightly, For feet cramps cyclobenzaprine 10 MG tablet Commonly known as: FLEXERIL 10 mg, Oral, 3 Times Daily PRN cycloSPORINE modified 25 MG capsule Commonly known as: NEORAL 50 mg, Oral, 2 Times Daily doxazosin 8 MG tablet Commonly known as: CARDURA 8 mg, Oral, Nightly PRN entecavir 0.5 MG tablet Commonly known as: BARACLUDE 0.5 mg, Oral, Daily, For 7 days, started 04-27-20 famotidine 20 MG tablet Commonly known as: PEPCID 20 mg, Oral, 2 Times Daily PRN gabapentin 800 MG tablet Commonly known as: NEURONTIN 1,200 mg, Oral, 3 Times Daily hydrALAZINE 50 MG tablet Commonly known as: APRESOLINE 300 mg, Oral, 3 Times Daily hydrOXYzine pamoate 25 MG capsule Commonly known as: VISTARIL 25 mg, Oral, Daily, 1 hr prior to dialysis insulin NPH 100 UNIT/ML injection Commonly known as: humuLIN N,novoLIN N Subcutaneous, 2 Times Daily Before Meals, 48 units qam and 15 units qhs metoprolol tartrate 100 MG tablet Commonly known as: LOPRESSOR 100 mg, Oral, 2 Times Daily mycophenolate 250 MG capsule Commonly known as: CELLCEPT 250 mg, Oral, 2 Times Daily NIFEdipine CC 90 MG 24 hr tablet Commonly known as: ADALAT CC 90 mg, Oral, 2 Times Daily ondansetron 4 MG tablet Commonly known as: ZOFRAN 4 mg, Oral, Every 8 Hours PRN vitamin D 1.25 MG (81402 UT) capsule capsule Commonly known as: ERGOCALCIFEROL 50,000 Units, Oral, 2 Times Weekly, Takes on Monday and Stop These Medications cephalexin 500 MG capsule Commonly known as: KEFLEX No Known Allergies Discharge Disposition: Home or Self Care Diet: Hospital: Diet Order Procedures ??? Diet Regular; Consistent Carbohydrate, Low Fiber / Low Residue, Low Fat CODE STATUS: Code Status and Medical Interventions: Ordered at: 04/28/20 1125 Code Status: CPR Medical Interventions (Level of Support Prior to Arrest): Full No future appointments. Additional Instructions for the Follow-ups that You Need to Schedule Discharge Follow-up with PCP As directed Currently Documented PCP: Edgar Fournier MD PCP Follow Up Details: 1-2 week hospital follow up Discharge Follow-up with Specialty: TRAY Rodriguez via telehealth; 1 Week As directed Specialty: TRAY Rodriguez via telehealth Follow Up: 1 Week Discharge Follow-up with Specialty: ADÁN Garnica; 1 Month As directed Specialty: ADÁN Garnica Follow Up: 1 Month if pending use the [facility] process Time Spent on Discharge: I spent 45 minutes on this discharge activity which included: [id number] with the patient, reviewing the data in the system, coordination of the care with the nursing staff as well as consultants, documentation, and entering orders. documented in this encounter Discharge Instructions * Discharge Instr - Diet* Roxi Cook RN - 05/13/2020 1:54 PM EDT Consistent Carbohydrate diet. * Attachments The following attachments cannot be sent through Care Everywhere. * Laminectomy Care After (Cypriot) * Dialysis (Cypriot) * Acetaminophen; Hydrocodone tablets or capsules (Cypriot) * Preventing Constipation After Surgery (Cypriot) * Fall Prevention in the Home Adult [id number] (Cypriot) * Understanding Your Risk for Falls (Cypriot) documented in this encounter Medications at Time of Discharge aspirin 81 MG chewable tablet Chew 1 tablet Daily. carBAMazepine (TEGretol) 200 MG tablet Take 1 tablet by mouth Every Night. For feet cramps doxazosin (CARDURA) 8 MG tablet Take 1 tablet by mouth At Night As Needed. gabapentin (NEURONTIN) 800 MG tablet Take 0.5 tablets by mouth Every Night. NIFEdipine CC (ADALAT CC) 90 MG 24 hr tablet Take 1 tablet by mouth 2 (Two) Times a Day. doxycycline (MONODOX) 100 MG capsuleIndicatio ns:Bone and/or Joint Infection Take 1 capsule by mouth Every 12 (Twelve) Hours for 2 doses. Indications: Bone and/or Joint Infection 2 capsule 05/13/2020 0 HYDROcodone-acet aminophen (NORCO) 5-325 MG per tabletIndication s:Discitis of lumbar region Take 1 tablet by mouth Every 4 (Four) Hours As Needed for Moderate Pain for up to 3 days. 18 tablet 05/13/2020 0 ALPRAZolam (XANAX) 1 MG tablet Take 1 [...] 05/13/2020 3 vitamin D (ERGOCALCIFEROL) 1.25 MG (36186 UT) capsule capsule Take 1 capsule by mouth 2 (Two) Times a Week. Takes on Monday and 4 documented as of this encounter Progress Notes * Cayetano Rodriguez MD - 05/13/2020 4:03 PM EDT [facility] Progress Note Date of Admission: 04/28/2020 Antibiotics: Vancomycin and oral doxycycline CC: Chief Complaint Patient presents with ??? Back Pain ??? Multiple complaints S: Patient still with weakness fatigue some tremor intermittent confusion but hemoglobin is stable no fever decreased back pain still with elevated blood pressure. O: BP (!) 152/102 Pulse 103 Temp 98 ??F (36.7 ??C) (Temporal) Resp 16 Ht 170.2 cm (67 ) Wt 122 kg (268 lb) SpO2 95% BMI 41.97 kg/m?? Temp (24hrs), Av.2 ??F (36.8 ??C), Min:98 ??F (36.7 ??C), Max:98.4 ??F (36.9 ??C) PE: GENERAL: Awake and alert. Chronically ill-appearing. HEENT: Normocephalic, atraumatic. No conjunctival injection. No icterus. Oropharynx clear without evidence of thrush or exudate. No evidence of peridontal disease. NECK: Supple without nuchal rigidity LYMPH: No cervical/axillary lymphadenopathy HEART: RRR; No murmur, rubs, gallops. LUNGS: Clear to auscultation bilaterally without wheezing, rales, rhonchi. Normal respiratory effort. ABDOMEN: Soft, obese and distended positive bowel sounds. No rebound or guarding. EXT: No cyanosis, clubbing or edema : Normal appearing genitalia without Anders catheter. MSK: decreased ROM of l spine SKIN: Warm and dry without cutaneous eruptions. NEURO: Alert and oriented. Generalized weakness PSYCHIATRIC: Poor insight and judgment currently. Cooperative with PE ?? Laboratory Data Results from last 7 days Lab Units 05/11/20 0700 05/08/20 0855 05/07/20 0738 WBC 10*3/mm3 6.60 6.21 9.30 HEMOGLOBIN g/dL 8.3* 7.6* 7.9* HEMATOCRIT % 27.2* 25.0* 25.3* PLATELETS 10*3/mm3 388 447 478* Results from last 7 days Lab Units 05/11/20 0700 SODIUM mmol/L 134* POTASSIUM mmol/L 5.0 CHLORIDE mmol/L 94* CO2 mmol/L 20.0* BUN mg/dL 65* CREATININE mg/dL 8.56* GLUCOSE mg/dL 115* CALCIUM mg/dL 9.2 Results from last 7 days Lab Units 05/11/20 0700 ALK PHOS U/L 80 BILIRUBIN mg/dL 0.2 ALT (SGPT) U/L 12 AST (SGOT) U/L 14 Results from last 7 days Lab Units 05/13/20 0831 CRP mg/dL 14.82* Estimated Creatinine Clearance: 13.5 mL/min (A) (by C-G formula based on SCr of 8.56 mg/dL (H)). Microbiology: Blood cultures negative to date Wound cultures with coag-negative staph, staph epidermidis resistant to oxacillin Radiology: Imaging Results (Last 24 Hours) No results found for the last 24 hours. 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 ASSESSMENT: Patient is a 45-year-old with Kim with end-stage liver disease underwent transplant on immunosuppressive therapy on home hemodialysis 5 days/week with end-stage renal disease recent right chest walldialysis cath removed with some erythema this was followed by increasing lower back pain which progressed to fevers chills difficulty with ambulation. He was seen at several ERs including [facility] given Keflex with some improvement. Now admitted with fevers chills leukocytosis MRI revealing lumbar spine discitis osteomyelitis and fluid seen on MRI and epidural space of L5-S1 but no overt neurologic deficits today. ?? Status post surgical drainage on long-term antibiotics with IV vancomycin with hemodialysis oral doxycycline still with elevated C-reactive protein but no fevers hemodynamically stable will need to continue long-term antibiotics and he remains on immunosuppression for his history of liver transplant. Very complex case slowly improving on vancomycin with hemodialysis oral doxycycline continue staph epi coverage but still mental status slow to improve source fatigue weakness malaise and with his history immunosuppression and transplant expect very slow recovery. Plans for home with home health and dialysis with vancomycin agree with close follow-up with transplant team [place] at high risk for need for readmission PLAN: Continue vancomycin dosed by pharmacy on hemodialysis x5 more weeks Continue doxycycline Monitor CBCcmp esr and CRP weekly Agree with close follow-up with [place] transplant team at high risk for need for readmission with complexity of case with ongoing immune suppression and lumbar spine discitis and osteomyelitis difficulty with ambulation Cayetano Rodriguez MD 05/11/2020 * Ginger Murphy RN - 05/13/2020 2:11 PM EDT Continued Stay Note Marcelo Patient Name: Leoncio Rollins Today's Date: 05/13/2020 Admit Date: 04/28/2020 Discharge Plan Row Name 05/13/20 1409 Plan Plan Home w/ HH Provided Post Acute Provider List? Yes Post Acute Provider List Home Health Patient/Family in Agreement with Plan yes Plan Comments Per patient request HH has been arranged [facility]. Referral made to Domenic and she is aware of patient's pending dc today. DC summary has been faxed to [facility]. No other needs noted. Plan is home w/ HH and outpatient HD at [facility] MWF. to transport. CM following. Final Discharge Disposition Code 06 - home with home health care Discharge Codes No documentation. Expected Discharge Date and Time Expected Discharge Date Expected Discharge Time May 13, 2020 Ginger Murphy RN * Gabbi Paul II, DO - 05/13/2020 12:44 PM EDT Images from the original note were not included. [facility] Medicine Services PROGRESS NOTE Patient Name: Leoncio Rollins : 1975 Date of Admission: 04/28/2020 Primary Care Physician: Edgar Fournier MD Subjective Subjective CC: f/u discitis HPI: Seen in dialysis. Angry that he is still here. Still refusing to walk but says he will walk athome. It is also noted that he called 911 last night from his room. Review of Systems Gen- No fevers, chills CV- No chest pain, palpitations Resp- No cough, dyspnea GI- No N/V/D, abd pain Objective Objective Vital Signs: Temp: [98 ??F (36.7 ??C)-98.4 ??F (36.9 ??C)] 98 ??F (36.7 ??C) Heart Rate: [91-129] 103 Resp: [16-18] 16 BP: (134-189)/(74-103) 171/103 Physical Exam: Constitutional: No acute distress, awake, alert HENT: NCAT, mucous membranes moist Respiratory: Clear to auscultation bilaterally, respiratory effort normal Cardiovascular: RRR, no murmurs, rubs, or gallops, palpable pedal pulses bilaterally Gastrointestinal: Positive bowel sounds, soft, nontender, nondistended, obese Musculoskeletal: No bilateral ankle edema Psychiatric: Appropriate affect, cooperative Neurologic: Oriented x 3, strength symmetric in all extremities, Cranial Nerves grossly intact to confrontation, speech clear Skin: No rashes Results Reviewed: Results from last 7 days Lab Units 05/11/20 0700 05/08/20 0855 05/07/20 0738 WBC 10*3/mm3 6.60 6.21 9.30 HEMOGLOBIN g/dL 8.3* 7.6* 7.9* HEMATOCRIT % 27.2* 25.0* 25.3* PLATELETS 10*3/mm3 388 447 478* INR -- -- 1.30* Results from last 7 days Lab Units 05/11/20 0700 05/07/20 0738 SODIUM mmol/L 134* 133* POTASSIUM mmol/L 5.0 3.7 CHLORIDE mmol/L 94* 96* CO2 mmol/L 20.0* 21.0* BUN mg/dL 65* 39* CREATININE mg/dL 8.56* 7.56* GLUCOSE mg/dL 115* 140* CALCIUM mg/dL 9.2 8.9 ALT (SGPT) U/L 12 14 AST (SGOT) U/L 14 13 Estimated Creatinine Clearance: 13.5 mL/min (A) (by C-G formula based on SCr of 8.56 mg/dL (H)). Microbiology Results Abnormal Procedure Component Value - Date/Time Wound Culture - Wound, Spine, Lumbar [[id number]] (Abnormal) (Susceptibility) Collected: 04/29/201842 Lab Status: Edited Result - FINAL Specimen: Wound from Spine, Lumbar Updated: 05/07/20 0702 Wound Culture Rare Staphylococcus epidermidis Gram Stain No WBCs or organisms seen Susceptibility Staphylococcus epidermidis GREGORY Clindamycin Susceptible Inducible Clindamycin Resistance Negative Oxacillin Resistant Tetracycline Susceptible Trimethoprim + Sulfamethoxazole Susceptible Vancomycin Susceptible Susceptibility Comments Staphylococcus epidermidis This isolate does not demonstrate inducible clindamycin resistance in vitro. Fungus Culture - Tissue, Back, Lower [[id number]] Collected: 04/29/201914 Lab Status: Preliminary result Specimen: Tissue from Back, Lower Updated: 05/06/201999 Fungus Culture No fungus isolated at 1 week AFB Culture - Tissue, Back, Lower [[id number]] Collected: 04/29/201914 Lab Status: Preliminary result Specimen: Tissue from Back, Lower Updated: 05/06/201999 AFB Culture No AFB isolated at 1 week AFB Stain No acid fast bacilli seen on concentrated smear Anaerobic Culture - Tissue, Back, Lower [[id number]] Collected: 04/29/201914 Lab Status: Final result Specimen: Tissue from Back, Lower Updated: 05/04/20 0858 Anaerobic Culture No anaerobes isolated at 5 days Anaerobic Culture - Wound, Spine, Lumbar [[id number]] Collected: 09/16/20 1843 Lab Status: Final result Specimen: Wound from Spine, Lumbar Updated: 05/04/20 0858 Anaerobic Culture No anaerobes isolated at 5 days Blood Culture - Blood, Arm, Right [[id number]] Collected: 04/28/20 0650 Lab Status: Final result Specimen: Blood from Arm, Right Updated: 05/03/20 0800 Blood Culture No growth at 5 days Blood Culture - Blood, Wrist, Right [[id number]] Collected: 04/28/20 0701 Lab Status: Final result Specimen: Blood from Wrist, Right Updated: 05/03/20 0800 Blood Culture No growth at 5 days Tissue / Bone Culture - Tissue, Back, Lower [[id number]] Collected: 04/29/20 1915 Lab Status: Final result Specimen: Tissue from Back, Lower Updated: 05/02/20 0857 Tissue Culture No growth at 3 days Gram Stain Rare (1+) WBCs seen No organisms seen MRSA Screen, PCR (Inpatient) - Swab, Nares [[id number]] (Normal) Collected: 04/29/20 0150 Lab Status: Final result Specimen: Swab from Nares Updated: 04/29/20 0912 MRSA PCR Negative Narrative: MRSA Negative COVID PRE-OP / PRE-PROCEDURE SCREENING ORDER (NO ISOLATION) - Swab, Nasopharynx [[id number]] (Normal) Collected: 04/28/20 1505 Lab Status: Final result Specimen: Swab from Nasopharynx Updated: 04/28/20 1644 Narrative: The following orders were created for panel order COVID PRE-OP / PRE-PROCEDURE SCREENING ORDER (NO ISOLATION) - Swab, Nasopharynx. Procedure Abnormality Status --------- ------ Respiratory Panel PCR w/...[[id number]] Normal Final result Please view results for these tests on the individual orders. 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 Swab in UTM/MSM, 3-4 HR TAT - Swab, Nasopharynx [[id number]] (Normal) Collected: 04/28/20 1505 Lab Status: Final result Specimen: Swab from Nasopharynx Updated: 04/28/20 1644 ADENOVIRUS, PCR Not Detected Coronavirus 229E Not Detected Coronavirus HKU1 Not Detected Coronavirus NL63 Not Detected Coronavirus OC43 Not Detected COVID19 Not Detected Human Metapneumovirus Not Detected Human Rhinovirus/Enterovirus Not Detected Influenza A PCR Not Detected Influenza A H1 Not Detected Influenza A H1 2009 PCR Not Detected Influenza A H3 Not Detected Influenza B PCR Not Detected Parainfluenza Virus 1 Not Detected Parainfluenza Virus 2 Not Detected Parainfluenza Virus 3 Not Detected Parainfluenza Virus 4 Not Detected RSV, PCR Not Detected Bordetella pertussis pcr Not Detected Bordetella parapertussis PCR Not Detected Chlamydophila pneumoniae PCR Not Detected Mycoplasma pneumo by PCR Not Detected Narrative: Fact sheet for providers: https://docs.[employer]/wp-content/uploads/GRE3246-0454-YO2.1-EUA-Provi fet-Jtiz-Eugnj-3.pdf Fact sheet for patients: https://docs.[employer]/wp-content/uploads/HCM5532-6276-YN3.8-WLS-Jlkouo p-Lcxl-Xjimz-1.pdf Imaging Results (Last 24 Hours) No results found for the last 24 hours. I have reviewed the medications: Scheduled Meds:bisacodyl, 10 mg, Rectal, Daily carBAMazepine, 200 mg, Oral, Nightly cycloSPORINE modified, 50 mg, Oral, BID docusate sodium, 100 mg, Oral, BID doxycycline, 100 mg, Oral, Q12H entecavir, 0.5 mg, Oral, Weekly epoetin giancarlo/giancarlo-epbx, 20,000 Units, Subcutaneous, 3x Weekly famotidine, 10 mg, Oral, Daily hydrALAZINE, 100 mg, Oral, TID insulin detemir, 15 Units, Subcutaneous, Nightly insulin lispro, 0-9 Units, Subcutaneous, TID AC lisinopril, 40 mg, Oral, Q12H metoprolol tartrate, 100 mg, Oral, Q8H mycophenolate, 250 mg, Oral, Daily mycophenolate, 250 mg, Oral, Nightly NIFEdipine CC, 90 mg, Oral, BID polyethylene glycol, 17 g, Oral, Daily senna-docusate sodium, 2 tablet, Oral, Nightly sodium chloride, 10 mL, Intravenous, Q12H sodium chloride, 3 mL, Intravenous, Q12H vancomycin, 750 mg, Intravenous, Once per day on Mon Continuous Infusions:Pharmacy to dose vancomycin, sodium chloride, 9 mL/hr, Last Rate: 9 mL/hr (04/29/20 1608) PRN Meds:.??? acetaminophen OR acetaminophen OR acetaminophen ??? acetaminophen ??? albumin human ??? albumin human ??? bisacodyl ??? calcium carbonate EX ??? dextrose ??? dextrose ??? glucagon (human recombinant) ??? HYDROcodone-acetaminophen ??? labetalol ??? [DISCONTINUED] HYDROmorphone AND naloxone ??? ondansetron ??? Pharmacy to dose vancomycin ??? sodium chloride ??? sodium chloride ??? terazosin Assessment/Plan Assessment & Plan Active Hospital Problems Diagnosis POA ??? Sepsis (CMS/HCC) [A41.9] Yes ??? KIM (nonalcoholic steatohepatitis) [K75.81] Unknown ??? History of liver transplant (CMS/HCC) [Z94.4] Not Applicable ??? Immunosuppression (CMS/HCC) [D89.9] Unknown ??? Type 2 diabetes mellitus (CMS/HCC) [E11.9] Unknown ??? Altered mental state [R41.82] Unknown ??? ESRD (end stage renal disease) (CMS/HCC) [N18.6] Unknown ??? Hyponatremia [E87.1] Unknown ??? Discitis [M46.40] Unknown ??? 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] Unknown ??? Leukocytosis [D72.829] Unknown Resolved Hospital Problems No resolved problems to display. Brief Hospital Course to date: Leoncio Ivelisse Eh??is a 45 y.o.??male??with history of liver transplant 2018 secondary to KIM, ESRD on home dialysis 5 days per week, DM who presents with 1 week of back pain, fever and AMS. ??Found tohave discitis and epidural abscess on imaging. ?? Severe sepsis (fever, confusion, leukocytosis, lactic acidosis) in setting of immunosuppression Discitis Epidural abscess ?? - MRI L5/S1 with osteomyelitis/discitis and fluid collection concerning for epidural abscess. Neurosurgery consulted. ??04/29 L5 laminectomy, epidural abscess I and D. - His wound culture Staph epi. Continue IV vanco w/ HD. I have d/w Dr. Cheney this am who accepts plan. - Continue oral Doxy ?? HTN uncontrolled - Uncontrolled but better. Continue lisinopril hydralazine, nifedipine, metoprolol - May need to consider clonidine eventually. ?? Acute pain from lumbar infxn - pt denies chronic opioid use Ongoing issues w/ pain control - has been on scheduled oxycodone 10mg q6 x a week -??change to norco 5mg q 6hr prn ?? Acute anemia - stable - heme pos stool and 'melena' but no fall in hgb with this ?? - 2u??PRBC??in HD??05/08 - EGD 05/04 near normal - stop PPI and return CellCept dosing to his usual. - follow. ??Epo per nephrology? Severe constip ??- resolved w??aggressive mgmt ?Episode of altered mental status with diffuse tremors/myoclonus and tachycardia ??- resolved ??- suspect baclofen toxicity, now discontinued ?? Liver transplant on chronic immunosuppression ([facility]) - CyA returned at 26 (04/29 draw) -??discussed with Dr. Vidal who feels this is ok while in maintenance phase post transplant ??And no sign of rejection - history of transplant at in 2018 for KIM - Will continue cyclosporine and cellcept -- patient's to bring in patient's entecavir - GI and ID consulted ; GI recommends continuing immunosuppressives??and has signed off ?? ESRD Uremia Hyponatremia - Currently on home dialysis 5 days per week ; follows w dr cheney - Nephrology following- ??Plan to set up outpatient HD for vanc infusion purposes. D/W Dr. Cheney as above. ?? DM on NPH bid at home - Controlled this am. Continue levemir/SSI- no change fsbs good ?? This patient's problems and plans were partially entered by my partner and updated as appropriate by me 05/13/20. ?? DVT prophylaxis:?SCDs??-?Continue to encourage patient to mobilize-??not only to help strength conditioning, but also to help prevent blood clots. ?? Disposition: His disposition is exceedingly difficult. The patient is delusional and tells me repeatedly that he will walk with no problems once we let him leave but he is max assist and refuses therapy here. I d/w his spouse this am and she said even prior to his hospitalization he was really unable to walk at home. Unfortunately he refuses PT/OT so will not qualify for SNF at this time but his says she is unable to care for him at home. I have asked her to call the patient and tell him this then get back to us regarding their discussion. Have d/w CM. CODE STATUS: Code Status and Medical Interventions: Ordered at: 04/28/20 1125 Code Status: CPR Medical Interventions (Level of Support Prior to Arrest): Full if pending use the [facility] process * Vivek Ramos RPH - 05/13/2020 9:58 AM EDT Pharmacy Consult-Vancomycin Dosing Leoncio Rollins is a 45 y.o. male receiving vancomycin therapy. Indication: Sepsis secondary to spine discitis/osteomyelitis Consulting Provider: Hospitalist ID Consult: Cayetano Rodriguez MD Goal trough: 15-20mcg/ml Current Antimicrobial Therapy Anti-Infectives (From admission, onward) Ordered Dose/Rate Route Frequency Start Stop 05/13/20 0940 Pharmacy to dose vancomycin Ordering Provider: Vivek Ramos RPH Does not apply Continuous PRN 05/13/20 0938 05/20/20 0937 05/08/20 1058 vancomycin in dextrose 5% 150 mL (VANCOCIN) IVPB 750 mg Vivek Ramos RPH reviewed the order on 05/13/20 0941. Ordering Provider: Vivek Ramos RPH 750 mg over 60 Minutes Intravenous Once per day on Mon05/08/20 1700 05/20/20 0940 05/07/20 1937 doxycycline (MONODOX) capsule 100 mg Germán Brady, PharmD reviewed the order on 05/11/20 0938. Ordering Provider: Cayetano Rodriguez MD 100 mg Oral Every 12 Hours Scheduled 05/07/20 2100 05/14/20205805/06/20 1112 vancomycin in dextrose 5% 150 mL (VANCOCIN) IVPB 750 mg Ordering Provider: Karli Camp RPH 750 mg over 60 Minutes Intravenous Once 05/06/20 1600 05/06/20 1850 05/05/20 1044 Pharmacy to dose vancomycin Ordering Provider: Karli Camp RPH Does not apply Continuous PRN 05/05/20 1044 05/12/20 1043 05/04/20 1324 vancomycin in dextrose 5% 150 mL (VANCOCIN) IVPB 750 mg Ordering Provider: Vivek Ramos RPH 750 mg over 60 Minutes Intravenous Once 05/04/20 1600 05/04/20 1608 05/01/20 1140 vancomycin in dextrose 5% 150 mL (VANCOCIN) IVPB 750 mg Ordering Provider: Germán Resendiz RPH 750 mg over 60 Minutes Intravenous Once 05/01/20 1230 05/01/20 1704 04/29/20 1119 vancomycin (VANCOCIN) in iso-osmotic dextrose IVPB 1 g (premix) 200 mL Ordering Provider: Germná Resendiz RPH 1,000 mg over 60 Minutes Intravenous Once 04/29/20 1600 04/29/20 1750 04/28/20 1131 entecavir (BARACLUDE) tablet 0.5 mg (PATIENT SUPPLIED MED) Ordering Provider: Dewey Betancourt MD 0.5 mg Oral Weekly 04/28/20 2130 04/28/20 0650 vancomycin 2500 mg/500 mL 0.9% NS IVPB ([facility]) Ordering Provider: Kym Garcia DO 20 mg/kg ?? 125 kg over 150 Minutes Intravenous Once 04/28/20 0652 04/28/20 1256 04/28/20 0650 cefTRIAXone (ROCEPHIN) 1 g/100 mL 0.9% NS (MBP) Ordering Provider: Kym Garcia DO 1 g over 30 Minutes Intravenous Once 04/28/20 0652 04/28/20 0859 Allergies Allergies as of 04/27/2020 (Not on File) Labs Results from last 7 days Lab Units 05/11/20 0700 05/07/20 0738 BUN mg/dL 65* 39* CREATININE mg/dL 8.56* 7.56* Results from last 7 days Lab Units 05/11/20 0700 05/08/20 0855 05/07/20 0738 WBC 10*3/mm3 6.60 6.21 9.30 Evaluation of Dosing Last Dose Received in the ED/Outside Facility: 2500mg in ED 04/28 Is Patient on Dialysis or Renal Replacement: HD 5 days a week [employer]IST now on a MWF Schedule Ht - 170.2 cm (67 ) Wt - 122 kg (268 lb) Estimated Creatinine Clearance: 13.5 mL/min (A) (by C-G formula based on SCr of 8.56 mg/dL (H)). Intake & Output (last 3 days) 05/10 701 - 05/11 - 05/12 - 05/13 07 P.O. 120 150 360 IV Piggyback 150 Total Intake(mL/kg) 120 (1) 300 (2.5) 360 (3) Urine (mL/kg/hr) 50 (0) 125 (0) 300 (0.1) Total Output 50 125 300 Net +70 +175 +60 Urine Unmeasured Occurrence 1 x Microbiology and Radiology Microbiology Results (last 10 days) No results found for the last 240 hours. Evaluation of Level Results from last 7 days Lab Units 05/11/20 0700 05/08/20 0855 VANCOMYCIN RM mcg/mL 19.20 21.30 Assessment/Plan: 1. Pharmacy to dose vancomycin for discitis/osteomyelitis. Goal trough 15-20 mcg/mL. 2. Patient now on a Monday, Monday, Monday dialysis schedule. 3. Patient scheduled for dialysis today. No new vancomycin level to assess. Will continue current regimen of Vancomycin 750mg post HD MWF, has been stable on this regimen. 4. Pharmacy will continue to monitor renal function, cultures and sensitivities, and clinical status to adjust regimen as necessary. Vivek Ramos PharmD [employer] Electric Engine Technician 05/13/2020 09:58 EDT * Kody Wong MD - 05/13/2020 8:56 AM EDT LOS: 15 days Patient Care Team: Edgar Fournier MD as PCP - General (Family Medicine) Reason For Visit: F/U ESRD Subjective No new events. Patient seen on dialysis today Review of Systems: Denies any shortness of breath nausea vomiting chest pain Objective bisacodyl, 10 mg, Rectal, Daily carBAMazepine, 200 mg, Oral, Nightly cycloSPORINE modified, 50 mg, Oral, BID docusate sodium, 100 mg, Oral, BID doxycycline, 100 mg, Oral, Q12H entecavir, 0.5 mg, Oral, Weekly epoetin giancarlo/giancarlo-epbx, 20,000 Units, Subcutaneous, 3x Weekly famotidine, 10 mg, Oral, Daily hydrALAZINE, 100 mg, Oral, TID insulin detemir, 15 Units, Subcutaneous, Nightly insulin lispro, 0-9 Units, Subcutaneous, TID AC lisinopril, 40 mg, Oral, Q12H metoprolol tartrate, 100 mg, Oral, Q8H mycophenolate, 250 mg, Oral, Daily mycophenolate, 250 mg, Oral, Nightly NIFEdipine CC, 90 mg, Oral, BID polyethylene glycol, 17 g, Oral, Daily senna-docusate sodium, 2 tablet, Oral, Nightly sodium chloride, 10 mL, Intravenous, Q12H sodium chloride, 3 mL, Intravenous, Q12H vancomycin, 750 mg, Intravenous, Once per day on Mon sodium chloride, 9 mL/hr, Last Rate: 9 mL/hr (04/29/20 1608) Vital Signs: Blood pressure (!) 134/102, pulse 99, temperature 98 ??F (36.7 ??C), temperature source Temporal, resp. rate 16, height 170.2 cm (67 ), weight 122 kg (268 lb), SpO2 95 %. Flowsheet Rows First Filed Value Admission Height 170.2 cm (67 ) Documented at 04/27/2020 2355 Admission Weight 125 kg (275 lb) Documented at 04/27/2020 2355 05/12 0701 - 05/13 0700 In: 360 [P.O.:360] Out: 300 [Urine:300] Physical Exam: General Appearance: Alert oriented x3 no obvious distress. Comfortably in bed. Lungs: Clear to auscultation Heart: No gallop, murmur, rub, RRR. Abdomen: Soft, nontender, positive bowel sounds, no organomegaly. Extremities: No edema or cyanosis. Neuro: No focal deficit, moving all extremities, alert oriented X 3 Skin: No rash, Warm and dry. Left upper arm functional AVF good bruit Radiology: Labs: Results from last 7 days Lab Units 05/11/20 0700 05/08/20 0855 05/07/20 0738 WBC 10*3/mm3 6.60 6.21 9.30 HEMOGLOBIN g/dL 8.3* 7.6* 7.9* HEMATOCRIT % 27.2* 25.0* 25.3* PLATELETS 10*3/mm3 388 447 478* Results from last 7 days Lab Units 05/11/20 0700 05/07/20 0738 SODIUM mmol/L 134* 133* POTASSIUM mmol/L 5.0 3.7 CHLORIDE mmol/L 94* 96* CO2 mmol/L 20.0* 21.0* BUN mg/dL 65* 39* CREATININE mg/dL 8.56* 7.56* CALCIUM mg/dL 9.2 8.9 ALBUMIN g/dL 3.30* 3.00* Results from last 7 days Lab Units 05/11/20 0700 GLUCOSE mg/dL 115* Results from last 7 days Lab Units 05/11/20 0700 ALK PHOS U/L 80 BILIRUBIN mg/dL 0.2 ALT (SGPT) U/L 12 AST (SGOT) U/L 14 Assessment Impression: 1- ESRD. Home dialysis 5 times per week. On MWF schedule while in patient. CK 49. 2- Anemia 3- AMS. Improved ammonia 18. 4- Lumbar spine discitis Osteomyelitis with epidural abscess s/p I&D 5- Hx of liver transplant on immunosuppression 6- Mild hyponatremia 7. KIM: History of liver transplant, on immunosuppressive medication Plan: Cyclosporine level less than 25. Will repeat cyclosporine level in the morning again. Before increasing the dose goal level 60-1 20 Avoid PICC line. Arrangement for outpatient antibiotic with the dialysis nurses. Patient can also go on inpatient dialysis at his previous unit. - Epo with HD - Gastroenterology managing Immunosuppression. Will recommend to hold Cellcept for active infectionfor 4 weeks. - Renal diet. - Avoid Nephrotoxic agents - Electrolytes will be corrected with HD. Kody Wong MD 05/13/20 08:56 EDT * Kody Wong MD - 05/12/2020 4:03 PM EDT LOS: 14 days Patient Care Team: Edgar Fournier MD as PCP - General (Family Medicine) Reason For Visit: F/U ESRD Subjective No new events. No obvious distress. Review of Systems: Sleepy but answering question correctly at this time. Denies any shortness of breath nausea vomiting chest pain Objective carBAMazepine, 200 mg, Oral, Nightly cycloSPORINE modified, 50 mg, Oral, BID docusate sodium, 100 mg, Oral, BID doxycycline, 100 mg, Oral, Q12H entecavir, 0.5 mg, Oral, Weekly epoetin giancarlo/giancarlo-epbx, 20,000 Units, Subcutaneous, 3x Weekly famotidine, 10 mg, Oral, Daily hydrALAZINE, 100 mg, Oral, TID insulin detemir, 15 Units, Subcutaneous, Nightly insulin lispro, 0-9 Units, Subcutaneous, TID AC [START ON 05/13/2020] lisinopril, 40 mg, Oral, Q24H metoprolol tartrate, 100 mg, Oral, Q8H mycophenolate, 250 mg, Oral, Daily mycophenolate, 250 mg, Oral, Nightly NIFEdipine CC, 90 mg, Oral, BID sodium chloride, 10 mL, Intravenous, Q12H sodium chloride, 3 mL, Intravenous, Q12H vancomycin, 750 mg, Intravenous, Once per day on Mon sodium chloride, 9 mL/hr, Last Rate: 9 mL/hr (04/29/20 1608) Vital Signs: Blood pressure (!) 178/105, pulse 98, temperature 98.3 ??F (36.8 ??C), temperature source Oral, resp. rate 18, height 170.2 cm (67 ), weight 122 kg (268 lb), SpO2 91 %. Flowsheet Rows First Filed Value Admission Height 170.2 cm (67 ) Documented at 04/27/20205 Admission Weight 125 kg (275 lb) Documented at 04/27/2020 2355 05/11 0701 - 05/12 0700 In: 300 [P.O.:150] Out: 125 [Urine:125] Physical Exam: General Appearance: Awake alert oriented no obvious distress. Distress. Lungs: Clear to auscultation Heart: No gallop, murmur, rub, RRR. Abdomen: Soft, nontender, positive bowel sounds, no organomegaly. Extremities: No edema or cyanosis. Neuro: No focal deficit, moving all extremities, alert oriented X 3 Skin: No rash, Warm and dry. Left upper arm functional AVF good bruit Radiology: Labs: Results from last 7 days Lab Units 05/11/20 0700 05/08/20 0855 05/07/20 0738 WBC 10*3/mm3 6.60 6.21 9.30 HEMOGLOBIN g/dL 8.3* 7.6* 7.9* HEMATOCRIT % 27.2* 25.0* 25.3* PLATELETS 10*3/mm3 388 447 478* Results from last 7 days Lab Units 05/11/20 0700 05/07/20 0738 SODIUM mmol/L 134* 133* POTASSIUM mmol/L 5.0 3.7 CHLORIDE mmol/L 94* 96* CO2 mmol/L 20.0* 21.0* BUN mg/dL 65* 39* CREATININE mg/dL 8.56* 7.56* CALCIUM mg/dL 9.2 8.9 ALBUMIN g/dL 3.30* 3.00* Results from last 7 days Lab Units 05/11/20 0700 GLUCOSE mg/dL 115* Results from last 7 days Lab Units 05/11/20 0700 ALK PHOS U/L 80 BILIRUBIN mg/dL 0.2 ALT (SGPT) U/L 12 AST (SGOT) U/L 14 Assessment Impression: 1- ESRD. Home dialysis 5 times per week. On MWF schedule while in patient. CK 49. 2- Anemia 3- AMS. Improved ammonia 18. 4- Lumbar spine discitis Osteomyelitis with epidural abscess s/p I&D 5- Hx of liver transplant on immunosuppression 6- Mild hyponatremia 7. KIM: History of liver transplant, on immunosuppressive medication Plan: Cyclosporine level less than 25. Will repeat cyclosporine level in the morning again. Before increasing the dose goal level 60-1 20 Avoid PICC line. Arrangement for outpatient antibiotic with the dialysis nurses. Patient can also go on inpatient dialysis at his previous unit. - Epo with HD - Gastroenterology managing Immunosuppression. Will recommend to hold Cellcept for active infectionfor 4 weeks. - Renal diet. - Avoid Nephrotoxic agents - Electrolytes will be corrected with HD. Gates Ur Wong, MD 05/12/20 16:04 EDT * Beverly Gabbi Harish DUFFY, DO - 05/12/2020 10:43 AM EDT Images from the original note were not included. [facility] Medicine Services PROGRESS NOTE Patient Name: Leoncio Rollins : 1975 Date of Admission: 04/28/2020 Primary Care Physician: Edgar Fournier MD Subjective Subjective CC: f/u discitis HPI: Patient lying in bed with myriad of complaints. He was only able to ambulate 2 steps yesterdaythen reportedly cried out in pain and was unable to walk any further though he is adamant that he could walk if I would let him leave. Review of Systems Gen- No fevers, chills CV- No chest pain, palpitations Resp- No cough, dyspnea GI- No N/V/D, abd pain Objective Objective Vital Signs: Temp: [97.4 ??F (36.3 ??C)-98.3 ??F (36.8 ??C)] 98.3 ??F (36.8 ??C) Heart Rate: [88-102] 98 Resp: [16-20] 18 BP: (128-194)/(71-107) 178/105 Physical Exam: Constitutional: No acute distress, awake, alert HENT: NCAT, mucous membranes moist Respiratory: Clear to auscultation bilaterally, respiratory effort normal Cardiovascular: RRR, no murmurs, rubs, or gallops, palpable pedal pulses bilaterally Gastrointestinal: Positive bowel sounds, soft, nontender, nondistended, obese Musculoskeletal: No bilateral ankle edema Psychiatric: Agitated, argumentatitve Neurologic: Oriented x 3, strength symmetric in all extremities, Cranial Nerves grossly intact to confrontation, speech clear Skin: No rashes Results Reviewed: Results from last 7 days Lab Units 05/11/20 0700 05/08/20 0855 05/07/20 0738 WBC 10*3/mm3 6.60 6.21 9.30 HEMOGLOBIN g/dL 8.3* 7.6* 7.9* HEMATOCRIT % 27.2* 25.0* 25.3* PLATELETS 10*3/mm3 388 447 478* INR -- -- 1.30* Results from last 7 days Lab Units 05/11/20 0700 05/07/20 0738 SODIUM mmol/L 134* 133* POTASSIUM mmol/L 5.0 3.7 CHLORIDE mmol/L 94* 96* CO2 mmol/L 20.0* 21.0* BUN mg/dL 65* 39* CREATININE mg/dL 8.56* 7.56* GLUCOSE mg/dL 115* 140* CALCIUM mg/dL 9.2 8.9 ALT (SGPT) U/L 12 14 AST (SGOT) U/L 14 13 Estimated Creatinine Clearance: 13.5 mL/min (A) (by C-G formula based on SCr of 8.56 mg/dL (H)). Microbiology Results Abnormal Procedure Component Value - Date/Time Wound Culture - Wound, Spine, Lumbar [[id number]] (Abnormal) (Susceptibility) Collected: 04/29/201842 Lab Status: Edited Result - FINAL Specimen: Wound from Spine, Lumbar Updated: 05/07/20 0702 Wound Culture Rare Staphylococcus epidermidis Gram Stain No WBCs or organisms seen Susceptibility Staphylococcus epidermidis GREGORY Clindamycin Susceptible Inducible Clindamycin Resistance Negative Oxacillin Resistant Tetracycline Susceptible Trimethoprim + Sulfamethoxazole Susceptible Vancomycin Susceptible Susceptibility Comments Staphylococcus epidermidis This isolate does not demonstrate inducible clindamycin resistance in vitro. Fungus Culture - Tissue, Back, Lower [[id number]] Collected: 04/29/201914 Lab Status: Preliminary result Specimen: Tissue from Back, Lower Updated: 05/06/201999 Fungus Culture No fungus isolated at 1 week AFB Culture - Tissue, Back, Lower [[id number]] Collected: 04/29/201914 Lab Status: Preliminary result Specimen: Tissue from Back, Lower Updated: 05/06/201999 AFB Culture No AFB isolated at 1 week AFB Stain No acid fast bacilli seen on concentrated smear Anaerobic Culture - Tissue, Back, Lower [[id number]] Collected: 04/29/201914 Lab Status: Final result Specimen: Tissue from Back, Lower Updated: 05/04/20 0858 Anaerobic Culture No anaerobes isolated at 5 days Anaerobic Culture - Wound, Spine, Lumbar [[id number]] Collected: 09/16/20 1843 Lab Status: Final result Specimen: Wound from Spine, Lumbar Updated: 05/04/20 0858 Anaerobic Culture No anaerobes isolated at 5 days Blood Culture - Blood, Arm, Right [[id number]] Collected: 04/28/20 0650 Lab Status: Final result Specimen: Blood from Arm, Right Updated: 05/03/20 0800 Blood Culture No growth at 5 days Blood Culture - Blood, Wrist, Right [[id number]] Collected: 04/28/20 0701 Lab Status: Final result Specimen: Blood from Wrist, Right Updated: 05/03/20 0800 Blood Culture No growth at 5 days Tissue / Bone Culture - Tissue, Back, Lower [[id number]] Collected: 04/29/20 1915 Lab Status: Final result Specimen: Tissue from Back, Lower Updated: 05/02/20 0857 Tissue Culture No growth at 3 days Gram Stain Rare (1+) WBCs seen No organisms seen MRSA Screen, PCR (Inpatient) - Swab, Nares [[id number]] (Normal) Collected: 04/29/20 0150 Lab Status: Final result Specimen: Swab from Nares Updated: 04/29/20 0912 MRSA PCR Negative Narrative: MRSA Negative COVID PRE-OP / PRE-PROCEDURE SCREENING ORDER (NO ISOLATION) - Swab, Nasopharynx [[id number]] (Normal) Collected: 04/28/20 1505 Lab Status: Final result Specimen: Swab from Nasopharynx Updated: 04/28/20 1644 Narrative: The following orders were created for panel order COVID PRE-OP / PRE-PROCEDURE SCREENING ORDER (NO ISOLATION) - Swab, Nasopharynx. Procedure Abnormality Status --------- ------ Respiratory Panel PCR w/...[[id number]] Normal Final result Please view results for these tests on the individual orders. 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 Swab in UTM/MSM, 3-4 HR TAT - Swab, Nasopharynx [[id number]] (Normal) Collected: 04/28/20 1505 Lab Status: Final result Specimen: Swab from Nasopharynx Updated: 04/28/20 1644 ADENOVIRUS, PCR Not Detected Coronavirus 229E Not Detected Coronavirus HKU1 Not Detected Coronavirus NL63 Not Detected Coronavirus OC43 Not Detected COVID19 Not Detected Human Metapneumovirus Not Detected Human Rhinovirus/Enterovirus Not Detected Influenza A PCR Not Detected Influenza A H1 Not Detected Influenza A H1 2009 PCR Not Detected Influenza A H3 Not Detected Influenza B PCR Not Detected Parainfluenza Virus 1 Not Detected Parainfluenza Virus 2 Not Detected Parainfluenza Virus 3 Not Detected Parainfluenza Virus 4 Not Detected RSV, PCR Not Detected Bordetella pertussis pcr Not Detected Bordetella parapertussis PCR Not Detected Chlamydophila pneumoniae PCR Not Detected Mycoplasma pneumo by PCR Not Detected Narrative: Fact sheet for providers: https://docs.[employer]/wp-content/uploads/YJQ7159-9978-UT5.1-EUA-Provi kgj-Damg-Oxkwx-3.pdf Fact sheet for patients: https://docs.[employer]/wp-content/uploads/HNK2293-0274-YR0.2-SVR-Ospggu r-Jhja-Bkswm-1.pdf Imaging Results (Last 24 Hours) No results found for the last 24 hours. I have reviewed the medications: Scheduled Meds:carBAMazepine, 200 mg, Oral, Nightly cycloSPORINE modified, 50 mg, Oral, BID docusate sodium, 100 mg, Oral, BID doxycycline, 100 mg, Oral, Q12H entecavir, 0.5 mg, Oral, Weekly epoetin giancarlo/igancarlo-epbx, 20,000 Units, Subcutaneous, 3x Weekly famotidine, 10 mg, Oral, Daily hydrALAZINE, 100 mg, Oral, TID insulin detemir, 15 Units, Subcutaneous, Nightly insulin lispro, 0-9 Units, Subcutaneous, TID AC lisinopril, 20 mg, Oral, Q24H metoprolol tartrate, 100 mg, Oral, Q8H mycophenolate, 250 mg, Oral, Daily mycophenolate, 250 mg, Oral, Nightly NIFEdipine CC, 90 mg, Oral, BID sodium chloride, 10 mL, Intravenous, Q12H sodium chloride, 3 mL, Intravenous, Q12H vancomycin, 750 mg, Intravenous, Once per day on Mon Continuous Infusions:sodium chloride, 9 mL/hr, Last Rate: 9 mL/hr (04/29/20 1608) PRN Meds:.??? acetaminophen OR acetaminophen OR acetaminophen ??? acetaminophen ??? albumin human ??? calcium carbonate EX ??? dextrose ??? dextrose ??? glucagon (human recombinant) ??? HYDROcodone-acetaminophen ??? labetalol ??? [DISCONTINUED] HYDROmorphone AND naloxone ??? ondansetron ??? sodium chloride ??? sodium chloride ??? terazosin Assessment/Plan Assessment & Plan Active Hospital Problems Diagnosis POA ??? Sepsis (CMS/HCC) [A41.9] Yes ??? KIM (nonalcoholic steatohepatitis) [K75.81] Unknown ??? History of liver transplant (CMS/HCC) [Z94.4] Not Applicable ??? Immunosuppression (CMS/HCC) [D89.9] Unknown ??? Type 2 diabetes mellitus (CMS/HCC) [E11.9] Unknown ??? Altered mental state [R41.82] Unknown ??? ESRD (end stage renal disease) (CMS/HCC) [N18.6] Unknown ??? Hyponatremia [E87.1] Unknown ??? Discitis [M46.40] Unknown ??? 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] Unknown ??? Leukocytosis [D72.829] Unknown Resolved Hospital Problems No resolved problems to display. Brief Hospital Course to date: Leoncio Rollins??is a 45 y.o.??male??with history of liver transplant 2018 secondary to KIM, ESRD on home dialysis 5 days per week, DM who presents with 1 week of back pain, fever and AMS. Found to have discitis and epidural abscess on imaging. This is my first day assessing patient's active medical issues. ? Severe sepsis (fever, confusion, leukocytosis, lactic acidosis) in setting of immunosuppression Discitis Epidural abscess ?? - MRI L5/S1 with osteomyelitis/discitis and fluid collection concerning for epidural abscess. Neurosurgery consulted. 04/29 L5 laminectomy, epidural abscess I and D. - His wound culture Staph epi. Continue IV vanco w/ HD. I have d/w Dr. Yana jean am who accepts plan. - Continue oral Doxy - Unfortunately it appears as though he is limited by his mobility. He was able to walk 2 feet withmod assist. Pain in R mcknight seems a limiting factor last week. Though this is his baseline at home prior to this admission he has not had to leave house. I am having a hard time getting him to understand that now he will need to ambulate to HD clinic 3 times a week. ?? HTN uncontrolled - Uncontrolled - Again increased lisinopril. Continue hydralazine, nifedipine, metoprolol - May need to consider clonidine tomorrow. ?? Acute pain from lumbar infxn - pt denies chronic opioid use Ongoing issues w/ pain control - has been on scheduled oxycodone 10mg q6 x a week - change to norco 5mg q 6hr prn ?? Acute anemia - stable - heme pos stool and 'melena' but no fall in hgb with this - 2u PRBC in HD 05/08 - EGD 05/04 near normal - stop PPI and return CellCept dosing to his usual. - follow. Epo per nephrology ?? Severe constip - resolved w aggressive mgmt ?? Episode of altered mental status with diffuse tremors/myoclonus and tachycardia - resolved - suspect baclofen toxicity, now discontinued ?? Liver transplant on chronic immunosuppression ([facility]) - CyA returned at 26 (04/29 draw) - discussed with Dr. Vidal who feels this is ok while in maintenance phase post transplant And no sign of rejection - history of transplant at in 2018 for KIM - Will continue cyclosporine and cellcept -- patient's to bring in patient's entecavir - GI and ID consulted ; GI recommends continuing immunosuppressives and has signed off ?? ESRD Uremia Hyponatremia - Currently on home dialysis 5 days per week ; follows w dr cheney - Nephrology following- Plan to set up outpatient HD for vanc infusion purposes. D/W Dr. Cheney as above. ?? DM on NPH bid at home - Controlled this am. Continue levemir/SSI- no change fsbs good This patient's problems and plans were partially entered by my partner and updated as appropriate by me 05/12/20.?? DVT prophylaxis:?SCDs??- Continue to encourage patient to mobilize- not only to help strength conditioning, but also to help prevent blood clots. Disposition: I expect the patient to be discharged TBD. CODE STATUS: Code Status and Medical Interventions: Ordered at: 04/28/20 1125 Code Status: CPR Medical Interventions (Level of Support Prior to Arrest): Full if pending use the [facility] process * Ginger Murphy, JANA - 05/12/2020 9:46 AM EDT Continued Stay Note KALEB Robertson Patient Name: Leoncio Rollins Today's Date: 05/12/2020 Admit Date: 04/28/2020 Discharge Plan Row Name 05/12/20 0921 Plan Plan Home w/ oupatient HD Patient/Family in Agreement with Plan yes Plan Comments Spoke w/ patient at bedside. He is now agreeable to outpatient HD three times a wk, with abx in fusion, at [facility] in [place]. Also spoke w/ [place] [facility] [place] and [place]. Patient will have HD MWF at 1200. CM will faxed the dc summary including abx info to Marilee at [phone] when available. Per Marilee, Dr. Cheney, patient's costume director, has requested for the attending MD or ID to call him regarding the anticipated IV regimen for approval. CM will provide his number to MD in am rounds. Patient states his will provided transport to and from HD. No other needs noted at this time. CM following. Final Discharge Disposition Code 01 - home or self-care Discharge Codes No documentation. Ginger Murphy RN * Ginger Murphy, JANA - 05/11/2020 3:11 PM EDT Continued Stay Note KALEB Robertson Patient Name: Leoncio Rollins Today's Date: 05/11/2020 Admit Date: 04/28/2020 Discharge Plan Row Name 05/11/20 1505 Plan Plan Home Plan Comments Spoke w/ patient at bedside. He admantly declined receiving IV abx outpatient at a HDclinic. However per his RN during a subsequent conversation he stated he would consider it if transportation could be arranged. CM attempted to speak with patient again at bedside and he was off the floor for HD. Patient has declined previous attempts to work w/ therapy or to transfer out of bed to assess mobility. CM d/w GEOGRAPHY INSTRUCTOR and PT will attempt to eval patient. Once his functional mobility is determined CM will arrange transportation accordingly. CM following. ADDENDUM: PT evaluated patient on 05/08. Per PT note, patient was able to complete a STS transfer from bed to chair w/ mod assist x 2 but was limited by a jimbo horse and unable to complete assessment. [facility]. WIll need private transportation. CM will f/u w/ patient. Final Discharge Disposition Code 01 - home or self-care Discharge Codes No documentation. Ginger Murphy RN * Cayetano Rodriguez MD - 05/11/2020 2:27 PM EDT [facility] Progress Note Date of Admission: 04/28/2020 Antibiotics: Vancomycin and oral doxycycline CC: Chief Complaint Patient presents with ??? Back Pain ??? Multiple complaints S: Patient with weakness fatigue malaise remains on IV antibiotics with hemodialysis still with lower back pain, no fevers O: BP 108/75 Pulse 91 Temp 97.5 ??F (36.4 ??C) (Temporal) Resp 16 Ht 170.2 cm (67 ) Wt 122 kg (268 lb) SpO2 94% BMI 41.97 kg/m?? Temp (24hrs), Av.1 ??F (36.7 ??C), Min:97.5 ??F (36.4 ??C), Max:98.5 ??F (36.9 ??C) PE: GENERAL: Awake and alert. Chronically ill-appearing. HEENT: Normocephalic, atraumatic. No conjunctival injection. No icterus. Oropharynx clear without evidence of thrush or exudate. No evidence of peridontal disease. NECK: Supple without nuchal rigidity LYMPH: No cervical/axillary lymphadenopathy HEART: RRR; No murmur, rubs, gallops. LUNGS: Clear to auscultation bilaterally without wheezing, rales, rhonchi. Normal respiratory effort. ABDOMEN: Soft, obese and distended positive bowel sounds. No rebound or guarding. EXT: No cyanosis, clubbing or edema : Normal appearing genitalia without Anders catheter. MSK: decreased ROM of l spine SKIN: Warm and dry without cutaneous eruptions. NEURO: Alert and oriented. PSYCHIATRIC: Normal insight and judgment currently. Cooperative with PE ?? Laboratory Data Results from last 7 days Lab Units 05/11/20 0700 05/08/20 0855 05/07/20 0738 WBC 10*3/mm3 6.60 6.21 9.30 HEMOGLOBIN g/dL 8.3* 7.6* 7.9* HEMATOCRIT % 27.2* 25.0* 25.3* PLATELETS 10*3/mm3 388 447 478* Results from last 7 days Lab Units 05/11/20 0700 SODIUM mmol/L 134* POTASSIUM mmol/L 5.0 CHLORIDE mmol/L 94* CO2 mmol/L 20.0* BUN mg/dL 65* CREATININE mg/dL 8.56* GLUCOSE mg/dL 115* CALCIUM mg/dL 9.2 Results from last 7 days Lab Units 05/11/20 0700 ALK PHOS U/L 80 BILIRUBIN mg/dL 0.2 ALT (SGPT) U/L 12 AST (SGOT) U/L 14 Results from last 7 days Lab Units 05/06/20 0557 SED RATE mm/hr 44* Results from last 7 days Lab Units 05/11/20 0700 CRP mg/dL 15.69* Estimated Creatinine Clearance: 13.5 mL/min (A) (by C-G formula based on SCr of 8.56 mg/dL (H)). Microbiology: Blood cultures negative to date Wound cultures with coag-negative staph Radiology: Imaging Results (Last 24 Hours) No results found for the last 24 hours. 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 ASSESSMENT: Patient is a 45-year-old with Kim with end-stage liver disease underwent transplant on immunosuppressive therapy on home hemodialysis 5 days/week with end-stage renal disease recent right chest walldialysis cath removed with some erythema this was followed by increasing lower back pain which progressed to fevers chills difficulty with ambulation. He was seen at several ERs including [facility] given Keflex with some improvement. Now admitted with fevers chills leukocytosis MRI revealing lumbar spine discitis osteomyelitis and fluid seen on MRI and epidural space of L5-S1 but no overt neurologic deficits today. ?? Status post surgical drainage on long-term antibiotics with IV vancomycin with hemodialysis oral doxycycline still with elevated C-reactive protein but no fevers hemodynamically stable will need to continue long-term antibiotics and he remains on immunosuppression for his history of liver transplant. PLAN: Continue vancomycin dosed by pharmacy on hemodialysis Monitor CBCcmp esr and CRP weekly Mental status improving Cayetano Rodriguez MD 05/11/2020 * Germán Brady, PharmD - 05/11/2020 1:34 PM EDT Pharmacy Consult-Vancomycin Dosing Leoncio Rollins is a 45 y.o. male receiving vancomycin therapy. Indication: Sepsis secondary to spine discitis/osteomyelitis Consulting Provider: Hospitalist ID Consult: Cayetano Rodriguez MD Goal trough: 15-20mcg/ml Current Antimicrobial Therapy Anti-Infectives (From admission, onward) Ordered Dose/Rate Route Frequency Start Stop 05/08/20 1058 vancomycin in dextrose 5% 150 mL (VANCOCIN) IVPB 750 mg Germán Brady, PharmD reviewed the order on 05/11/20937. Ordering Provider: Karli Camp RPH 750 mg over 60 Minutes Intravenous Once per day on Mon05/08/20 1700 05/15/20 1659 05/07/20 1937 doxycycline (MONODOX) capsule 100 mg Germán Brady, PharmD reviewed the order on 05/11/20937. Ordering Provider: Cayetano Rodriguez MD 100 mg Oral Every 12 Hours Scheduled 05/07/20 2100 05/14/20205805/06/20 111 vancomycin in dextrose 5% 150 mL (VANCOCIN) IVPB 750 mg Ordering Provider: Karli Camp RPH 750 mg over 60 Minutes Intravenous Once 05/06/20 1600 05/06/20 1850 05/05/20 1044 Pharmacy to dose vancomycin Karli Camp RPH let the order on 05/07/20 1126. Ordering Provider: Karli Camp RPH Does not apply Continuous PRN 05/05/20 1044 05/12/20 1043 05/04/20 1324 vancomycin in dextrose 5% 150 mL (VANCOCIN) IVPB 750 mg Ordering Provider: Vivek Ramos RPH 750 mg over 60 Minutes Intravenous Once 05/04/20 1600 05/04/20 1608 05/01/20 1140 vancomycin in dextrose 5% 150 mL (VANCOCIN) IVPB 750 mg Ordering Provider: Germán Resendiz RPH 750 mg over 60 Minutes Intravenous Once 05/01/20 1230 05/01/20 1704 04/29/20 1119 vancomycin (VANCOCIN) in iso-osmotic dextrose IVPB 1 g (premix) 200 mL Ordering Provider: Germán Resendiz RPH 1,000 mg over 60 Minutes Intravenous Once 04/29/20 1600 04/29/20 1750 04/28/20 1131 entecavir (BARACLUDE) tablet 0.5 mg (PATIENT SUPPLIED MED) Ordering Provider: Dewey Betancourt MD 0.5 mg Oral Weekly 04/28/20 2130 04/28/20 0650 vancomycin 2500 mg/500 mL 0.9% NS IVPB ([facility]) Ordering Provider: Kym Garcia DO 20 mg/kg ?? 125 kg over 150 Minutes Intravenous Once 04/28/20 0652 04/28/20 1256 04/28/20 0650 cefTRIAXone (ROCEPHIN) 1 g/100 mL 0.9% NS (MBP) Ordering Provider: Kym Garcia DO 1 g over 30 Minutes Intravenous Once 04/28/20 0652 04/28/20 0859 Allergies Allergies as of 04/27/2020 (Not on File) Labs Results from last 7 days Lab Units 05/11/20 0700 05/07/20 0738 BUN mg/dL 65* 39* CREATININE mg/dL 8.56* 7.56* Results from last 7 days Lab Units 05/11/20 0700 05/08/20 0855 05/07/20 0738 WBC 10*3/mm3 6.60 6.21 9.30 Evaluation of Dosing Last Dose Received in the ED/Outside Facility: 2500mg in ED 04/28 Is Patient on Dialysis or Renal Replacement: HD 5 days a week NATIONAL COVERAGE SPECIALIST now on a MWF Schedule Ht - 170.2 cm (67 ) Wt - 122 kg (268 lb) Estimated Creatinine Clearance: 13.5 mL/min (A) (by C-G formula based on SCr of 8.56 mg/dL (H)). Intake & Output (last 3 days) 05/08 701 - 05/09 - 05/10 - 05/11 - 05/12 0700 P.O. 1014 1050 120 Total Intake(mL/kg) 1014 (8.3) 1050 (8.6) 120 (1) Urine (mL/kg/hr) 150 (0.1) 50 (0) 125 (0.2) Other 2330 Total Output 2330 150 50 125 Net -1316 +900 +70 -125 Microbiology and Radiology Microbiology Results (last 10 days) No results found for the last 240 hours. Evaluation of Level Results from last 7 days Lab Units 05/11/20 0700 05/08/20 0855 05/06/20 0557 VANCOMYCIN RM mcg/mL 19.20 21.30 23.20 Assessment/Plan: 1. Pharmacy to dose vancomycin for discitis/osteomyelitis. Goal trough 15-20 mcg/mL. 2. Patient now on a Monday, Monday, Monday dialysis schedule. 3. Random this AM prior to HD is 19.2mcg/mL. Will continue current regimen of Vancomycin 750mg postHD. 4. Pharmacy will continue to monitor renal function, cultures and sensitivities, and clinical status to adjust regimen as necessary. Germán Brady PharmD, BCPS 05/11/2020 13:28 EDT * Kody Wong MD - 05/11/2020 12:50 PM EDT LOS: 13 days Patient Care Team: Edgar Fournier MD as PCP - General (Family Medicine) Reason For Visit: F/U ESRD Subjective Patient seen on dialysis tolerating well. No new events. Review of Systems: Denies nausea vomiting no chest pain or shortness of breath. Objective carBAMazepine, 200 mg, Oral, Nightly cycloSPORINE modified, 50 mg, Oral, BID docusate sodium, 100 mg, Oral, BID doxycycline, 100 mg, Oral, Q12H entecavir, 0.5 mg, Oral, Weekly epoetin giancarlo/giancarlo-epbx, 20,000 Units, Subcutaneous, 3x Weekly famotidine, 10 mg, Oral, Daily hydrALAZINE, 100 mg, Oral, TID insulin detemir, 15 Units, Subcutaneous, Nightly insulin lispro, 0-9 Units, Subcutaneous, TID AC lisinopril, 20 mg, Oral, Q24H metoprolol tartrate, 100 mg, Oral, Q8H mycophenolate, 250 mg, Oral, Daily mycophenolate, 250 mg, Oral, Nightly NIFEdipine CC, 90 mg, Oral, BID sodium chloride, 10 mL, Intravenous, Q12H sodium chloride, 3 mL, Intravenous, Q12H vancomycin, 750 mg, Intravenous, Once per day on Mon Pharmacy to dose vancomycin, sodium chloride, 9 mL/hr, Last Rate: 9 mL/hr (04/29/20 1608) Vital Signs: Blood pressure (!) 162/101, pulse 98, temperature 97.5 ??F (36.4 ??C), temperature source Oral, resp. rate 16, height 170.2 cm (67 ), weight 122 kg (268 lb), SpO2 92 %. Flowsheet Rows First Filed Value Admission Height 170.2 cm (67 ) Documented at 04/27/2020 2355 Admission Weight 125 kg (275 lb) Documented at 04/27/2020 2355 05/10 0701 - 05/11 0700 In: 120 [P.O.:120] Out: 50 [Urine:50] Physical Exam: General Appearance: male alert oriented x3 no obvious distress. Lungs: Clear to auscultation Heart: No gallop, murmur, rub, RRR. Abdomen: Soft, nontender, positive bowel sounds, no organomegaly. Extremities: No edema, no cyanosis. Neuro: No focal deficit, moving all extremities, alert oriented X 3 Skin: No rash, Warm and dry. Left upper arm functional AVF good bruit Radiology: Labs: Results from last 7 days Lab Units 05/11/20 0700 05/08/20 0855 05/07/20 0738 WBC 10*3/mm3 6.60 6.21 9.30 HEMOGLOBIN g/dL 8.3* 7.6* 7.9* HEMATOCRIT % 27.2* 25.0* 25.3* PLATELETS 10*3/mm3 388 447 478* Results from last 7 days Lab Units 05/11/20 0700 05/07/20 0738 05/04/20 1319 SODIUM mmol/L 134* 133* -- POTASSIUM mmol/L 5.0 3.7 3.3* CHLORIDE mmol/L 94* 96* -- CO2 mmol/L 20.0* 21.0* -- BUN mg/dL 65* 39* -- CREATININE mg/dL 8.56* 7.56* -- CALCIUM mg/dL 9.2 8.9 -- ALBUMIN g/dL 3.30* 3.00* -- Results from last 7 days Lab Units 05/11/20 0700 GLUCOSE mg/dL 115* Results from last 7 days Lab Units 05/11/20 0700 ALK PHOS U/L 80 BILIRUBIN mg/dL 0.2 ALT (SGPT) U/L 12 AST (SGOT) U/L 14 Assessment Impression: 1- ESRD. Home dialysis 5 times per week. On MWF schedule while in patient. CK 49. 2- Anemia 3- AMS. Improved ammonia 18. 4- Lumbar spine discitis Osteomyelitis with epidural abscess s/p I&D 5- Hx of liver transplant on immunosuppression 6- Mild hyponatremia 7. KIM: History of liver transplant, on immunosuppressive medication Plan: Cyclosporine level pending. Dialysis in progress.. Patient tolerating well. Avoid PICC line. Arrangement for outpatient antibiotic with the dialysis nurses. Patient can also go on inpatient dialysis at his previous unit. - Epo with HD - Gastroenterology managing Immunosuppression. Will recommend to hold Cellcept for active infectionfor 4 weeks. -Pending CSA -recheck level - goal 60 -120 - Renal diet. - Avoid Nephrotoxic agents - Electrolytes will be corrected with HD. Kody Wong MD 05/11/20 12:50 EDT * Vera Hernandez, GEOGRAPHY INSTRUCTOR - 05/11/2020 12:37 PM EDT Images from the original note were not included. [facility] Medicine Services PROGRESS NOTE Patient Name: Leoncio Rollins : 1975 Date of Admission: 04/28/2020 Primary Care Physician: Edgar Fournier MD Subjective Subjective CC: Back pain HPI: Continues to talk about walker with big wheels. Does not rehab services despite PT recs and inability to mobilize on own. Continues to have back pain. Does not want IV replaced. Agreeable now to HD today and possible outpatient HD to receive infusion of vanc with dialysis if need be. Insists he is going home today Review of Systems Neuro - no further tremors/confusion. Gen- No fevers, chills CV- No chest pain, palpitations Resp- No cough, dyspnea GI- No N/V/D, abd pain musc - cramps in his R leg- relates to weather Objective Objective Vital Signs: Temp: [97.5 ??F (36.4 ??C)-98.5 ??F (36.9 ??C)] 97.5 ??F (36.4 ??C) Heart Rate: [88-98] 98 Resp: [16-18] 16 BP: (142-210)/(79-115) 162/101 Physical Exam: Constitutional - no acute distress, nontoxic, in bed, very talkative HEENT-NCAT, mucous membranes moist CV-RRR, S1 S2 normal, no m/r/g Resp-CTAB, no wheezes, rhonchi or rales Abd-soft, nontender, nondistended, normoactive bowel sounds, obese Ext- No lower extremity cyanosis, clubbing or edema bilaterally; RLE nontender, no swelling Neuro-alert and oriented, speech clear, moves all extremities Psych-normal affect but poor insight in terms of needs/ care Skin- No rash on exposed UE or LE bilaterally Results Reviewed: Results from last 7 days Lab Units 05/11/20 0700 05/08/20 0855 05/07/20 0738 WBC 10*3/mm3 6.60 6.21 9.30 HEMOGLOBIN g/dL 8.3* 7.6* 7.9* HEMATOCRIT % 27.2* 25.0* 25.3* PLATELETS 10*3/mm3 388 447 478* INR -- -- 1.30* Results from last 7 days Lab Units 05/11/20 0700 05/07/20 0738 05/04/20 1319 SODIUM mmol/L 134* 133* -- POTASSIUM mmol/L 5.0 3.7 3.3* CHLORIDE mmol/L 94* 96* -- CO2 mmol/L 20.0* 21.0* -- BUN mg/dL 65* 39* -- CREATININE mg/dL 8.56* 7.56* -- GLUCOSE mg/dL 115* 140* -- CALCIUM mg/dL 9.2 8.9 -- ALT (SGPT) U/L 12 14 -- AST (SGOT) U/L 14 13 -- Estimated Creatinine Clearance: 13.5 mL/min (A) (by C-G formula based on SCr of 8.56 mg/dL (H)). Microbiology Results Abnormal Procedure Component Value - Date/Time Wound Culture - Wound, Spine, Lumbar [[id number]] (Abnormal) (Susceptibility) Collected: 04/29/20 184 Lab Status: Edited Result - FINAL Specimen: Wound from Spine, Lumbar Updated: 05/07/20 07 Wound Culture Rare Staphylococcus epidermidis Gram Stain No WBCs or organisms seen Susceptibility Staphylococcus epidermidis GREGORY Clindamycin Susceptible Inducible Clindamycin Resistance Negative Oxacillin Resistant Tetracycline Susceptible Trimethoprim + Sulfamethoxazole Susceptible Vancomycin Susceptible Susceptibility Comments Staphylococcus epidermidis This isolate does not demonstrate inducible clindamycin resistance in vitro. Fungus Culture - Tissue, Back, Lower [[id number]] Collected: 04/29/201914 Lab Status: Preliminary result Specimen: Tissue from Back, Lower Updated: 05/06/201999 Fungus Culture No fungus isolated at 1 week AFB Culture - Tissue, Back, Lower [[id number]] Collected: 04/29/201914 Lab Status: Preliminary result Specimen: Tissue from Back, Lower Updated: 05/06/201999 AFB Culture No AFB isolated at 1 week AFB Stain No acid fast bacilli seen on concentrated smear Anaerobic Culture - Tissue, Back, Lower [[id number]] Collected: 04/29/20 1915 Lab Status: Final result Specimen: Tissue from Back, Lower Updated: 05/04/20 0858 Anaerobic Culture No anaerobes isolated at 5 days Anaerobic Culture - Wound, Spine, Lumbar [[id number]] Collected: 04/29/20 1843 Lab Status: Final result Specimen: Wound from Spine, Lumbar Updated: 05/04/20 0858 Anaerobic Culture No anaerobes isolated at 5 days Blood Culture - Blood, Arm, Right [[id number]] Collected: 04/28/20 0650 Lab Status: Final result Specimen: Blood from Arm, Right Updated: 05/03/20 0800 Blood Culture No growth at 5 days Blood Culture - Blood, Wrist, Right [[id number]] Collected: 04/28/20 0701 Lab Status: Final result Specimen: Blood from Wrist, Right Updated: 05/03/20 0800 Blood Culture No growth at 5 days Tissue / Bone Culture - Tissue, Back, Lower [[id number]] Collected: 04/29/20 1915 Lab Status: Final result Specimen: Tissue from Back, Lower Updated: 05/02/20 0857 Tissue Culture No growth at 3 days Gram Stain Rare (1+) WBCs seen No organisms seen MRSA Screen, PCR (Inpatient) - Swab, Nares [[id number]] (Normal) Collected: 04/29/20 0150 Lab Status: Final result Specimen: Swab from Nares Updated: 04/29/20 0912 MRSA PCR Negative Narrative: MRSA Negative COVID PRE-OP / PRE-PROCEDURE SCREENING ORDER (NO ISOLATION) - Swab, Nasopharynx [[id number]] (Normal) Collected: 04/28/20 1505 Lab Status: Final result Specimen: Swab from Nasopharynx Updated: 04/28/20 1644 Narrative: The following orders were created for panel order COVID PRE-OP / PRE-PROCEDURE SCREENING ORDER (NO ISOLATION) - Swab, Nasopharynx. Procedure Abnormality Status --------- ------ Respiratory Panel PCR w/...[[id number]] Normal Final result Please view results for these tests on the individual orders. 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 Swab in ALM/MSM, 3-4 HR TAT - Swab, Nasopharynx [[id number]] (Normal) Collected: 04/28/20 1505 Lab Status: Final result Specimen: Swab from Nasopharynx Updated: 04/28/20 1642 ADENOVIRUS, PCR Not Detected Coronavirus 229E Not Detected Coronavirus HKU1 Not Detected Coronavirus NL63 Not Detected Coronavirus OC43 Not Detected COVID19 Not Detected Human Metapneumovirus Not Detected Human Rhinovirus/Enterovirus Not Detected Influenza A PCR Not Detected Influenza A H1 Not Detected Influenza A H1 2008 PCR Not Detected Influenza A H3 Not Detected Influenza B PCR Not Detected Parainfluenza Virus 1 Not Detected Parainfluenza Virus 2 Not Detected Parainfluenza Virus 3 Not Detected Parainfluenza Virus 4 Not Detected RSV, PCR Not Detected Bordetella pertussis pcr Not Detected Bordetella parapertussis PCR Not Detected Chlamydophila pneumoniae PCR Not Detected Mycoplasma pneumo by PCR Not Detected Narrative: Fact sheet for providers: https://docs.[employer]/wp-content/uploads/ABN8615-2674-MK0.1-EUA-Provi eor-Jhgp-Jfkxn-3.pdf Fact sheet for patients: https://docs.[employer]/wp-content/uploads/XML9574-3992-NB5.6-ZGB-Khlblt k-Xshn-Uposn-1.pdf Imaging Results (Last 24 Hours) No results found for the last 24 hours. I have reviewed the medications: Scheduled Meds:carBAMazepine, 200 mg, Oral, Nightly cycloSPORINE modified, 50 mg, Oral, BID docusate sodium, 100 mg, Oral, BID doxycycline, 100 mg, Oral, Q12H entecavir, 0.5 mg, Oral, Weekly epoetin giancarlo/giancarlo-epbx, 20,000 Units, Subcutaneous, 3x Weekly famotidine, 10 mg, Oral, Daily hydrALAZINE, 100 mg, Oral, TID insulin detemir, 15 Units, Subcutaneous, Nightly insulin lispro, 0-9 Units, Subcutaneous, TID AC lisinopril, 20 mg, Oral, Q24H metoprolol tartrate, 100 mg, Oral, Q8H mycophenolate, 250 mg, Oral, Daily mycophenolate, 250 mg, Oral, Nightly NIFEdipine CC, 90 mg, Oral, BID sodium chloride, 10 mL, Intravenous, Q12H sodium chloride, 3 mL, Intravenous, Q12H vancomycin, 750 mg, Intravenous, Once per day on Mon Continuous Infusions:Pharmacy to dose vancomycin, sodium chloride, 9 mL/hr, Last Rate: 9 mL/hr (04/29/20 1608) PRN Meds:.??? acetaminophen OR acetaminophen OR acetaminophen ??? acetaminophen ??? albumin human ??? calcium carbonate EX ??? dextrose ??? dextrose ??? glucagon (human recombinant) ??? HYDROcodone-acetaminophen ??? HYDROmorphone ??? labetalol ??? [DISCONTINUED] HYDROmorphone AND naloxone ??? ondansetron ??? Pharmacy to dose vancomycin ??? sodium chloride ??? sodium chloride ??? terazosin Assessment/Plan Assessment & Plan Active Hospital Problems Diagnosis POA ??? Sepsis (CMS/HCC) [A41.9] Yes ??? KIM (nonalcoholic steatohepatitis) [K75.81] Unknown ??? History of liver transplant (CMS/HCC) [Z94.4] Not Applicable ??? Immunosuppression (CMS/HCC) [D89.9] Unknown ??? Type 2 diabetes mellitus (CMS/HCC) [E11.9] Unknown ??? Altered mental state [R41.82] Unknown ??? ESRD (end stage renal disease) (CMS/HCC) [N18.6] Unknown ??? Hyponatremia [E87.1] Unknown ??? Discitis [M46.40] Unknown ??? 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] Unknown ??? Leukocytosis [D72.829] Unknown Resolved Hospital Problems No resolved problems to display. Brief Hospital Course to date: Leoncio Rollins is a 45 y.o. male with history of liver transplant 2018 secondary to KIM, ESRD on home dialysis 5 days per week, DM who presents with 1 week of back pain, fever and AMS. Found to havediscitis and epidural abscess on imaging. This patient's problems and plans were partially entered by my partner and updated as appropriate by me 05/11/20. Severe sepsis (fever, confusion, leukocytosis, lactic acidosis) in setting of immunosuppression Discitis Epidural abscess - MRI L5/S1 with osteomyelitis/discitis and fluid collection concerning for epidural abscess - wound culture Staph epi --Partner discussed culture results with ID Dr Rodriguez -Neurosurgery consulted. 04/29 L5 laminectomy, epidural abscess I and D. - Continue vancomycin, case management working on infusion options with outpatient HD three times weekly- patient now agreeable - Continue oral Doxy - PT: Walked 2 feet with mod assist. Pain in R mcknight seems a limiting factor last week. Has not beenup with therapy over the weekend. Mobility may be limiting factor in getting patient home as he does have steps and apparently unable to ambulate on his own. HTN uncontrolled - better but still high - increased lisinopril- monitor today and adjust prn - continue hydralazine, nifedipine, metoprolol Pain control - has been on scheduled oxycodone 10mg q6 x a week - change to norco 5mg q 6hr prn - no IV access to received dilaudid- will dc Acute anemia - stable - heme pos stool and 'melena' but no fall in hgb with this - 2u PRBC in HD 05/08 - EGD 05/04 near normal - stop PPI and return CellCept dosing to his usual. - follow. Epo per nephrology Severe constip - resolved w aggressive mgmt Episode of altered mental status with diffuse tremors/myoclonus and tachycardia - resolved - suspect baclofen toxicity, now discontinued - neurontin held too Liver transplant on chronic immunosuppression ([facility]) - CyA returned at 26 (04/29 draw) - discussed with Dr. Vidal who feels this is ok while in maintenance phase post transplant And no sign of rejection - history of transplant at in 2018 for KIM - Will continue cyclosporine and cellcept -- patient's to bring in patient's entecavir - GI and ID consulted ; GI recommends continuing immunosuppressives and has signed off ?? ESRD Uremia Hyponatremia - Currently on home dialysis 5 days per week ; follows w dr cheney - Nephrology following- Plan to set up outpatient HD for vanc infusion purposes - epo ?? DM on NPH bid at home - continue levemir/SSI- no change fsbs good ?? Acute pain from lumbar infxn - pt denies chronic opioid use - changed to prn norco -stop prn dilaudid to 0.25 - baclofen attemtped by NSGY - stopping due to tremors/confusion DVT prophylaxis: SCDs - Continue to encourage patient to mobilize- not only to help strength conditioning, but also to help prevent blood clots. ?? Disposition: I expect the patient to be discharged TBD. CODE STATUS: Code Status and Medical Interventions: Ordered at: 04/28/20 1125 Code Status: CPR Medical Interventions (Level of Support Prior to Arrest): Full Electronically signed by Vera Hernandez APRN, 05/11/20, 12:50 PM EDT. * Odette Grace MD - 05/10/2020 9:37 AM EDT Images from the original note were not included. [facility] Medicine Services PROGRESS NOTE Patient Name: Leoncio Rollins : 1975 Date of Admission: 04/28/2020 Primary Care Physician: Edgar Fournier MD Subjective Subjective CC: Back pain HPI: Denies complaints, still talking about buying 'the kind of walker with the big wheels' when hegets home, states he will be fine with it; however is less sure. Review of Systems Neuro - no further tremors/confusion. Gen- No fevers, chills CV- No chest pain, palpitations Resp- No cough, dyspnea GI- No N/V/D, abd pain musc - mentions cramps in his R leg, says valium helps but he doesn't want to overuse it. Objective Objective Vital Signs: Temp: [98.2 ??F (36.8 ??C)-99.7 ??F (37.6 ??C)] 98.4 ??F (36.9 ??C) Heart Rate: [90-102] 90 Resp: [16-18] 18 BP: (152-193)/(88-108) 168/106 Physical Exam: Constitutional - no acute distress, nontoxic, in bed, very talkative, present. HEENT-NCAT, mucous membranes moist CV-RRR, S1 S2 normal, no m/r/g Resp-CTAB, no wheezes, rhonchi or rales Abd-soft, nontender, nondistended, normoactive bowel sounds, obese Ext- No lower extremity cyanosis, clubbing or edema bilaterally; RLE nontender, no swelling Neuro-alert and oriented, speech clear, moves all extremities Psych-normal affect Skin- No rash on exposed UE or LE bilaterally Results Reviewed: Results from last 7 days Lab Units 05/08/20 0855 05/07/20 0738 05/05/20 1142 WBC 10*3/mm3 6.21 9.30 10.91* HEMOGLOBIN g/dL 7.6* 7.9* 8.0* HEMATOCRIT % 25.0* 25.3* 26.8* PLATELETS 10*3/mm3 447 478* 460* INR -- 1.30* -- Results from last 7 days Lab Units 05/07/20 0738 05/04/20 1319 05/04/20 0802 SODIUM mmol/L 133* -- 134* POTASSIUM mmol/L 3.7 3.3* 3.8 CHLORIDE mmol/L 96* -- 96* CO2 mmol/L 21.0* -- 18.0* BUN mg/dL 39* -- 67* CREATININE mg/dL 7.56* -- 11.30* GLUCOSE mg/dL 140* -- 123* CALCIUM mg/dL 8.9 -- 9.1 ALT (SGPT) U/L 14 -- -- AST (SGOT) U/L 13 -- -- Estimated Creatinine Clearance: 15.3 mL/min (A) (by C-G formula based on SCr of 7.56 mg/dL (H)). Microbiology Results Abnormal Procedure Component Value - Date/Time Wound Culture - Wound, Spine, Lumbar [[id number]] (Abnormal) (Susceptibility) Collected: 04/29/20 184 Lab Status: Edited Result - FINAL Specimen: Wound from Spine, Lumbar Updated: 05/07/20 07 Wound Culture Rare Staphylococcus epidermidis Gram Stain No WBCs or organisms seen Susceptibility Staphylococcus epidermidis GREGORY Clindamycin Susceptible Inducible Clindamycin Resistance Negative Oxacillin Resistant Tetracycline Susceptible Trimethoprim + Sulfamethoxazole Susceptible Vancomycin Susceptible Susceptibility Comments Staphylococcus epidermidis This isolate does not demonstrate inducible clindamycin resistance in vitro. Fungus Culture - Tissue, Back, Lower [[id number]] Collected: 04/29/201914 Lab Status: Preliminary result Specimen: Tissue from Back, Lower Updated: 05/06/201999 Fungus Culture No fungus isolated at 1 week AFB Culture - Tissue, Back, Lower [[id number]] Collected: 04/29/201914 Lab Status: Preliminary result Specimen: Tissue from Back, Lower Updated: 05/06/201999 AFB Culture No AFB isolated at 1 week AFB Stain No acid fast bacilli seen on concentrated smear Anaerobic Culture - Tissue, Back, Lower [[id number]] Collected: 04/29/201914 Lab Status: Final result Specimen: Tissue from Back, Lower Updated: 05/04/20 0858 Anaerobic Culture No anaerobes isolated at 5 days Anaerobic Culture - Wound, Spine, Lumbar [[id number]] Collected: 04/29/20 1843 Lab Status: Final result Specimen: Wound from Spine, Lumbar Updated: 05/04/20 0858 Anaerobic Culture No anaerobes isolated at 5 days Blood Culture - Blood, Arm, Right [[id number]] Collected: 04/28/20 0650 Lab Status: Final result Specimen: Blood from Arm, Right Updated: 05/03/20 0800 Blood Culture No growth at 5 days Blood Culture - Blood, Wrist, Right [[id number]] Collected: 04/28/20 0701 Lab Status: Final result Specimen: Blood from Wrist, Right Updated: 05/03/20 0800 Blood Culture No growth at 5 days Tissue / Bone Culture - Tissue, Back, Lower [[id number]] Collected: 04/29/201914 Lab Status: Final result Specimen: Tissue from Back, Lower Updated: 05/02/20 0857 Tissue Culture No growth at 3 days Gram Stain Rare (1+) WBCs seen No organisms seen MRSA Screen, PCR (Inpatient) - Swab, Nares [[id number]] (Normal) Collected: 04/29/20 0150 Lab Status: Final result Specimen: Swab from Nares Updated: 04/29/20 0912 MRSA PCR Negative Narrative: MRSA Negative COVID PRE-OP / PRE-PROCEDURE SCREENING ORDER (NO ISOLATION) - Swab, Nasopharynx [[id number]] (Normal) Collected: 04/28/20 1505 Lab Status: Final result Specimen: Swab from Nasopharynx Updated: 04/28/20 1644 Narrative: The following orders were created for panel order COVID PRE-OP / PRE-PROCEDURE SCREENING ORDER (NO ISOLATION) - Swab, Nasopharynx. Procedure Abnormality Status --------- ------ Respiratory Panel PCR w/...[[id number]] Normal Final result Please view results for these tests on the individual orders. 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 Swab in UTM/VTM, 3-4 HR TAT - Swab, Nasopharynx [[id number]] (Normal) Collected: 04/28/20 1505 Lab Status: Final result Specimen: Swab from Nasopharynx Updated: 04/28/20 1644 ADENOVIRUS, PCR Not Detected Coronavirus 229E Not Detected Coronavirus HKU1 Not Detected Coronavirus NL63 Not Detected Coronavirus OC43 Not Detected COVID19 Not Detected Human Metapneumovirus Not Detected Human Rhinovirus/Enterovirus Not Detected Influenza A PCR Not Detected Influenza A H1 Not Detected Influenza A H1 2009 PCR Not Detected Influenza A H3 Not Detected Influenza B PCR Not Detected Parainfluenza Virus 1 Not Detected Parainfluenza Virus 2 Not Detected Parainfluenza Virus 3 Not Detected Parainfluenza Virus 4 Not Detected RSV, PCR Not Detected Bordetella pertussis pcr Not Detected Bordetella parapertussis PCR Not Detected Chlamydophila pneumoniae PCR Not Detected Mycoplasma pneumo by PCR Not Detected Narrative: Fact sheet for providers: https://docs.[employer]/wp-content/uploads/WAZ7270-9871-EU8.1-EUA-Provi swh-Xvtk-Cyfwu-3.pdf Fact sheet for patients: https://docs.[employer]/wp-content/uploads/QBX9735-0825-CP2.7-TVM-Ttuvqp l-Quwu-Bbnzg-1.pdf Imaging Results (Last 24 Hours) No results found for the last 24 hours. I have reviewed the medications: Scheduled Meds:carBAMazepine, 200 mg, Oral, Nightly cycloSPORINE modified, 50 mg, Oral, BID docusate sodium, 100 mg, Oral, BID doxycycline, 100 mg, Oral, Q12H entecavir, 0.5 mg, Oral, Weekly epoetin giancarlo/giancarlo-epbx, 20,000 Units, Subcutaneous, 3x Weekly famotidine, 10 mg, Oral, Daily hydrALAZINE, 100 mg, Oral, TID insulin detemir, 15 Units, Subcutaneous, Nightly insulin lispro, 0-9 Units, Subcutaneous, TID AC lisinopril, 10 mg, Oral, Q24H metoprolol tartrate, 100 mg, Oral, Q8H mycophenolate, 250 mg, Oral, Daily mycophenolate, 250 mg, Oral, Nightly NIFEdipine CC, 90 mg, Oral, BID oxyCODONE, 10 mg, Oral, Q6H sodium chloride, 10 mL, Intravenous, Q12H sodium chloride, 3 mL, Intravenous, Q12H vancomycin, 750 mg, Intravenous, Once per day on Mon Continuous Infusions:Pharmacy to dose vancomycin, sodium chloride, 9 mL/hr, Last Rate: 9 mL/hr (04/29/20 1608) PRN Meds:.??? acetaminophen OR acetaminophen OR acetaminophen ??? acetaminophen ??? [START ON 05/11/2020] albumin human ??? calcium carbonate EX ??? dextrose ??? dextrose ??? glucagon (human recombinant) ??? HYDROmorphone ??? labetalol ??? [DISCONTINUED] HYDROmorphone AND naloxone ??? ondansetron ??? Pharmacy to dose vancomycin ??? sodium chloride ??? sodium chloride ??? terazosin Assessment/Plan Assessment & Plan Active Hospital Problems Diagnosis POA ??? Sepsis (CMS/HCC) [A41.9] Yes ??? KIM (nonalcoholic steatohepatitis) [K75.81] Unknown ??? History of liver transplant (CMS/HCC) [Z94.4] Not Applicable ??? Immunosuppression (CMS/HCC) [D89.9] Unknown ??? Type 2 diabetes mellitus (CMS/HCC) [E11.9] Unknown ??? Altered mental state [R41.82] Unknown ??? ESRD (end stage renal disease) (CMS/HCC) [N18.6] Unknown ??? Hyponatremia [E87.1] Unknown ??? Discitis [M46.40] Unknown ??? 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] Unknown ??? Leukocytosis [D72.829] Unknown Resolved Hospital Problems No resolved problems to display. Brief Hospital Course to date: Leoncio Rollins is a 45 y.o. male with history of liver transplant 2018 secondary to KIM, ESRD on home dialysis 5 days per week, DM who presents with 1 week of back pain, fever and AMS. Found to havediscitis and epidural abscess on imaging. Severe sepsis (fever, confusion, leukocytosis, lactic acidosis) in setting of immunosuppression Discitis Epidural abscess - MRI L5/S1 with osteomyelitis/discitis and fluid collection concerning for epidural abscess - wound culture Staph epi -- discussed culture results with ID Dr Rodriguez -Neurosurgery consulted. 04/29 L5 laminectomy, epidural abscess I and D. - Continue vancomycin, case management working on infusion options, may need to have regular HD at outpatient center where antibiotics can be given after dialysis (unable to infuse with home dialysis). - PT: Walked 2 feet with mod assist. Pain in R mck[place] seems a limiting factor. Patient insists he will be okay at home. HTN uncontrolled - better but still high - increase lisinopril - continue hydralazine, nifedipine, metoprolol Pain control - has been on scheduled oxycodone 10mg q6 x a week - says he wont need pain meds at home and will be fine. - change to 5mg q6h prn to see how it goes. Told patient, who had no objection. Acute anemia - stable x days now - heme pos stool and 'melena' but no fall in hgb with this - 2u in HD Monday - EGD 05/04 near normal - stop PPI and return CellCept dosing to his usual. - follow. Epo per nephrology Severe constip - resolved w aggressive mgmt Episode of altered mental status with diffuse tremors/myoclonus and tachycardia - resolved - suspect baclofen toxicity, now discontinued - neurontin held too Liver transplant on chronic immunosuppression ([facility]) - CyA returned at 26 (04/29 draw) - will ask GI to discuss with [facility] tomorrow. - history of transplant at in 2018 for KIM - Will continue cyclosporine and cellcept -- patient's to bring in patient's entecavir - GI and ID consulted ; GI recommends continuing immunosuppressives ?? ESRD Uremia Hyponatremia - Currently on home dialysis 5 days per week ; follows w dr cheney - Nephrology following - epo ?? DM on NPH bid at home - continue levemir/SSI ?? Acute pain from lumbar infxn - pt denies chronic opioid use - scheduled oxycodone - but will need to wean off - decreased prn dilaudid to 0.25 - baclofen attemtped by NSGY - stopping due to tremors/confusion DVT prophylaxis: SCDs - I strongly urged the patient to mobilize (ie get up in the chair, work withPT) not only to help strength conditioning, but also to help prevent blood clots. ?? Disposition: I expect the patient to be discharged TBD. CODE STATUS: Code Status and Medical Interventions: Ordered at: 04/28/20 1125 Code Status: CPR Medical Interventions (Level of Support Prior to Arrest): Full * Callie Schwartz - 05/10/2020 9:23 AM EDT Pharmacy Consult-Vancomycin Dosing Leoncio Rollins is a 45 y.o. male receiving vancomycin therapy. Indication: Sepsis secondary to spine discitis/osteomyelitis Consulting Provider: Hospitalist ID Consult: Cayetano Rodriguez MD Goal trough: 15-20mcg/ml Current Antimicrobial Therapy Anti-Infectives (From admission, onward) Ordered Dose/Rate Route Frequency Start Stop 05/08/20 1058 vancomycin in dextrose 5% 150 mL (VANCOCIN) IVPB 750 mg Ordering Provider: Karli Camp RPH 750 mg over 60 Minutes Intravenous Once per day on Mon05/08/20 1700 05/15/20 1659 05/07/20 1937 doxycycline (MONODOX) capsule 100 mg Ordering Provider: Cayetano Rodriguez MD 100 mg Oral Every 12 Hours Scheduled 05/07/20 2100 05/14/20 2059 05/06/20 1112 vancomycin in dextrose 5% 150 mL (VANCOCIN) IVPB 750 mg Ordering Provider: Karli Camp RPH 750 mg over 60 Minutes Intravenous Once 05/06/20 1600 05/06/20 1850 05/05/20 1044 Pharmacy to dose vancomycin Karli Camp RPH reviewed the order on 05/07/20 1126. Ordering Provider: Karli Camp RPH Does not apply Continuous PRN 05/05/20 1044 05/12/20 1043 05/04/20 1324 vancomycin in dextrose 5% 150 mL (VANCOCIN) IVPB 750 mg Ordering Provider: Vivek Ramos RPH 750 mg over 60 Minutes Intravenous Once 05/04/20 1600 05/04/20 1608 05/01/20 1140 vancomycin in dextrose 5% 150 mL (VANCOCIN) IVPB 750 mg Ordering Provider: Germán Resendiz RPH 750 mg over 60 Minutes Intravenous Once 05/01/20 1230 05/01/20 1704 04/29/20 1119 vancomycin (VANCOCIN) in iso-osmotic dextrose IVPB 1 g (premix) 200 mL Ordering Provider: Germán Resendiz RPH 1,000 mg over 60 Minutes Intravenous Once 04/29/20 1600 04/29/20 1750 04/28/20 1131 entecavir (BARACLUDE) tablet 0.5 mg (PATIENT SUPPLIED MED) Ordering Provider: Dewey Betancourt MD 0.5 mg Oral Weekly 04/28/20 2130 04/28/20 0650 vancomycin 2500 mg/500 mL 0.9% NS IVPB ([facility]) Ordering Provider: Kym Garcia, DO 20 mg/kg ?? 125 kg over 150 Minutes Intravenous Once 04/28/20 0652 04/28/20 1256 04/28/20 0650 cefTRIAXone (ROCEPHIN) 1 g/100 mL 0.9% NS (MBP) Ordering Provider: Kym Garcia, DO 1 g over 30 Minutes Intravenous Once 04/28/20 0652 04/28/20 0859 Allergies Allergies as of 04/27/2020 (Not on File) Labs Results from last 7 days Lab Units 05/07/20 0738 05/04/20 0802 BUN mg/dL 39* 67* CREATININE mg/dL 7.56* 11.30* Results from last 7 days Lab Units 05/08/20 0855 05/07/20 0738 05/05/20 1142 WBC 10*3/mm3 6.21 9.30 10.91* Evaluation of Dosing Last Dose Received in the ED/Outside Facility: 2500mg in ED 04/28 Is Patient on Dialysis or Renal Replacement: HD 5 days a week [employer] now on a MWF Schedule Ht - 170.2 cm (67 ) Wt - 122 kg (268 lb) Estimated Creatinine Clearance: 15.3 mL/min (A) (by C-G formula based on SCr of 7.56 mg/dL (H)). Intake & Output (last 3 days) 05/07 701 - 05/08 0705/08 - 05/09 0705/09 07 - 05/10 0705/10 07 - 05/11 0700 P.O. 1014 1050 I.V. (mL/kg) Total Intake(mL/kg) 1014 (8.3) 1050 (8.6) Urine (mL/kg/hr) 150 (0.1) 150 (0.1) Other 2330 Total Output 150 2330 150 Net -150 -1316 +900 Microbiology and Radiology Microbiology Results (last 10 days) No results found for the last 240 hours. Evaluation of Level Results from last 7 days Lab Units 05/08/20 0855 05/06/20 0557 VANCOMYCIN RM mcg/mL 21.30 23.20 Assessment/Plan: 1. Pharmacy to dose vancomycin for discitis/osteomyelitis. Goal trough 15-20 mcg/mL. 2. Patient now on a Monday, Monday, Monday dialysis schedule. Last dose received was vancomycin 750 mg on 05/08 following dialysis. Next dose will be on 05/11 following dialysis. 3. Vancomycin random level ordered for 05/11 with AM labs prior to dialysis to assess continued appropriateness of dose. 4. Patient's mental status is improving. No labs ordered for today, will continue to follow with AMlabs tomorrow. 5. Pharmacy will continue to monitor renal function, cultures and sensitivities, and clinical status to adjust regimen as necessary. Callie Schwartz, PharmD [employer] 05/10/2020 09:23 EDT * Karishma Hodge MD - 05/10/2020 9:05 AM EDT LOS: 12 days Patient Care Team: Edgar Fournier MD as PCP - General (Family Medicine) Reason For Visit: F/U ESRD Subjective No new events. Review of Systems: Denies nausea vomiting chest pain or shortness of breath. Objective carBAMazepine, 200 mg, Oral, Nightly cycloSPORINE modified, 50 mg, Oral, BID docusate sodium, 100 mg, Oral, BID doxycycline, 100 mg, Oral, Q12H entecavir, 0.5 mg, Oral, Weekly epoetin giancarlo/giancarlo-epbx, 20,000 Units, Subcutaneous, 3x Weekly famotidine, 10 mg, Oral, Daily hydrALAZINE, 100 mg, Oral, TID insulin detemir, 15 Units, Subcutaneous, Nightly insulin lispro, 0-9 Units, Subcutaneous, TID AC lisinopril, 10 mg, Oral, Q24H metoprolol tartrate, 100 mg, Oral, Q8H mycophenolate, 250 mg, Oral, Daily mycophenolate, 250 mg, Oral, Nightly NIFEdipine CC, 90 mg, Oral, BID oxyCODONE, 10 mg, Oral, Q6H sodium chloride, 10 mL, Intravenous, Q12H sodium chloride, 3 mL, Intravenous, Q12H vancomycin, 750 mg, Intravenous, Once per day on Mon Pharmacy to dose vancomycin, sodium chloride, 9 mL/hr, Last Rate: 9 mL/hr (04/29/20 1608) Vital Signs: Blood pressure (!) 168/106, pulse 90, temperature 98.4 ??F (36.9 ??C), temperature source Oral, resp. rate 18, height 170.2 cm (67 ), weight 122 kg (268 lb), SpO2 92 %. Flowsheet Rows First Filed Value Admission Height 170.2 cm (67 ) Documented at 04/27/2020 2355 Admission Weight 125 kg (275 lb) Documented at 04/27/2020 2355 05/09 0701 - 05/10 0700 In: 1050 [P.O.:1050] Out: 150 [Urine:150] Physical Exam: General Appearance: Awake alert oriented x3. No distress. Lungs: Clear auscultation, no rales rhonchi's, equal chest movement, nonlabored. Heart: No gallop, murmur, rub, RRR. Abdomen: Soft, nontender, positive bowel sounds, no organomegaly. Extremities: No edema, no cyanosis. Neuro: No focal deficit, moving all extremities, alert oriented X 3 Skin: No rash, Warm and dry. Left upper arm functional AVF good bruit Radiology: Labs: Results from last 7 days Lab Units 05/08/20 0855 05/07/20 0738 05/05/20 1142 WBC 10*3/mm3 6.21 9.30 10.91* HEMOGLOBIN g/dL 7.6* 7.9* 8.0* HEMATOCRIT % 25.0* 25.3* 26.8* PLATELETS 10*3/mm3 447 478* 460* Results from last 7 days Lab Units 05/07/20 0738 05/04/20 1319 05/04/20 0802 SODIUM mmol/L 133* -- 134* POTASSIUM mmol/L 3.7 3.3* 3.8 CHLORIDE mmol/L 96* -- 96* CO2 mmol/L 21.0* -- 18.0* BUN mg/dL 39* -- 67* CREATININE mg/dL 7.56* -- 11.30* CALCIUM mg/dL 8.9 -- 9.1 MAGNESIUM mg/dL -- -- 2.4 ALBUMIN g/dL 3.00* -- -- Results from last 7 days Lab Units 05/07/20 0738 GLUCOSE mg/dL 140* Results from last 7 days Lab Units 05/07/20 0738 ALK PHOS U/L 66 BILIRUBIN mg/dL <0.2 ALT (SGPT) U/L 14 AST (SGOT) U/L 13 Assessment Impression: 1- ESRD. Home dialysis 5 times per week. On MWF schedule while in patient. CK 49. 2- Anemia 3- AMS. Improved ammonia 18. 4- Lumbar spine discitis Osteomyelitis with epidural abscess s/p I&D 5- Hx of liver transplant on immunosuppression 6- Mild hyponatremia 7. KIM: History of liver transplant, on immunosuppressive medication Plan: - HD tomorrow. UF as tolerated. - Epo with HD - Pending CSA level - goal 60 -120 - Renal diet. - Avoid Nephrotoxic agents - Awaiting home antibx arrangement with dialysis. Karishma Hodge MD 05/10/20 09:05 EDT * Cayetano Rodriguez MD - 05/09/2020 4:11 PM EDT [facility] Progress Note Date of Admission: 04/28/2020 Antibiotics: Vancomycin and oral doxycycline CC: Chief Complaint Patient presents with ??? Back Pain ??? Multiple complaints S: Patient laying in bed awake and alert upon arrival. No events to report overnight and states he is tolerating his antibiotics well with no nausea, vomiting or diarrhea. States he has continued back and leg pain that he currently ranks a 5 of 10. O: BP 159/91 Pulse 102 Temp 98.2 ??F (36.8 ??C) (Oral) Resp 16 Ht 170.2 cm (67 ) Wt 122 kg (268 lb) SpO2 92% BMI 41.97 kg/m?? Temp (24hrs), Av.3 ??F (36.8 ??C), Min:97.8 ??F (36.6 ??C), Max:98.8 ??F (37.1 ??C) PE: GENERAL: Awake and alert. Chronically ill-appearing. HEENT: Normocephalic, atraumatic. No conjunctival injection. No icterus. Oropharynx clear without evidence of thrush or exudate. No evidence of peridontal disease. NECK: Supple without nuchal rigidity LYMPH: No cervical/axillary lymphadenopathy HEART: RRR; No murmur, rubs, gallops. LUNGS: Clear to auscultation bilaterally without wheezing, rales, rhonchi. Normal respiratory effort. ABDOMEN: Soft, obese and distended positive bowel sounds. No rebound or guarding. EXT: No cyanosis, clubbing or edema : Normal appearing genitalia without Anders catheter. MSK: decreased ROM of l spine SKIN: Warm and dry without cutaneous eruptions. NEURO: Alert and oriented. PSYCHIATRIC: Normal insight and judgment currently. Cooperative with PE ?? Laboratory Data Results from last 7 days Lab Units 05/08/20 0855 05/07/20 0738 05/05/20 1142 WBC 10*3/mm3 6.21 9.30 10.91* HEMOGLOBIN g/dL 7.6* 7.9* 8.0* HEMATOCRIT % 25.0* 25.3* 26.8* PLATELETS 10*3/mm3 447 478* 460* Results from last 7 days Lab Units 05/07/20 0738 SODIUM mmol/L 133* POTASSIUM mmol/L 3.7 CHLORIDE mmol/L 96* CO2 mmol/L 21.0* BUN mg/dL 39* CREATININE mg/dL 7.56* GLUCOSE mg/dL 140* CALCIUM mg/dL 8.9 Results from last 7 days Lab Units 05/07/20 0738 ALK PHOS U/L 66 BILIRUBIN mg/dL <0.2 ALT (SGPT) U/L 14 AST (SGOT) U/L 13 Results from last 7 days Lab Units 05/06/20 0557 SED RATE mm/hr 44* Results from last 7 days Lab Units 05/08/20 0855 CRP mg/dL 12.16* Estimated Creatinine Clearance: 15.3 mL/min (A) (by C-G formula based on SCr of 7.56 mg/dL (H)). Microbiology: Blood cultures negative to date Wound cultures with coag-negative staph Radiology: Imaging Results (Last 24 Hours) No results found for the last 24 hours. 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 ASSESSMENT: Patient is a 45-year-old with Kim with end-stage liver disease underwent transplant on immunosuppressive therapy on home hemodialysis 5 days/week with end-stage renal disease recent right chest walldialysis cath removed with some erythema this was followed by increasing lower back pain which progressed to fevers chills difficulty with ambulation. He was seen at several ERs including [facility] given Keflex with some improvement. Now admitted with fevers chills leukocytosis MRI revealing lumbar spine discitis osteomyelitis and fluid seen on MRI and epidural space of L5-S1 but no overt neurologic deficits today. ?? Get old records from [facility], it appears no blood cultures were obtained at any ER visit and had partially treated case with Keflex with some improvement. Spine culture with coag negative staph will continue vancomycin and oral doxycycline, white blood cell count and CRP coming down. Encouraging patient to work with PT as remains bedbound continue long-term antibiotics and rehab plan on IV antibiotics with vancomycin with dialysis once ready for discharge. PLAN: Continue vancomycin dosed by pharmacy on hemodialysis Monitor CBCcmp esr and CRP weekly Mental status improving Dr. Cayetano Rodriguez has obtained the history, performed the physical exam and formulated the above treatment plan. Aydin Srivastava APRN for Dr. Cayetano Rodriguez [facility] * Karishma Hodge MD - 05/09/2020 2:33 PM EDT LOS: 11 days Patient Care Team: Edgar Fournier MD as PCP - General (Family Medicine) Reason For Visit: F/U ESRD Subjective No new events. Review of Systems: Denies nausea vomiting chest pain or shortness of breath. Objective carBAMazepine, 200 mg, Oral, Nightly cycloSPORINE modified, 50 mg, Oral, BID docusate sodium, 100 mg, Oral, BID doxycycline, 100 mg, Oral, Q12H entecavir, 0.5 mg, Oral, Weekly epoetin giancarlo/giancarlo-epbx, 20,000 Units, Subcutaneous, 3x Weekly famotidine, 10 mg, Oral, Daily hydrALAZINE, 100 mg, Oral, TID insulin detemir, 15 Units, Subcutaneous, Nightly insulin lispro, 0-9 Units, Subcutaneous, TID AC lisinopril, 10 mg, Oral, Q24H metoprolol tartrate, 100 mg, Oral, Q8H mycophenolate, 250 mg, Oral, Daily mycophenolate, 250 mg, Oral, Nightly NIFEdipine CC, 90 mg, Oral, BID oxyCODONE, 10 mg, Oral, Q6H sodium chloride, 10 mL, Intravenous, Q12H sodium chloride, 3 mL, Intravenous, Q12H vancomycin, 750 mg, Intravenous, Once per day on Mon Pharmacy to dose vancomycin, sodium chloride, 9 mL/hr, Last Rate: 9 mL/hr (04/29/20 1608) Vital Signs: Blood pressure 159/91, pulse 102, temperature 98.2 ??F (36.8 ??C), temperature source Oral, resp. rate 16, height 170.2 cm (67 ), weight 122 kg (268 lb), SpO2 92 %. Flowsheet Rows First Filed Value Admission Height 170.2 cm (67 ) Documented at 04/27/2020 2355 Admission Weight 125 kg (275 lb) Documented at 04/27/2020 2355 05/08 0701 - 05/09 0700 In: 1014 [P.O.:1014] Out: 2330 Physical Exam: General Appearance: Awake alert oriented x3. No distress. Lungs: Clear auscultation, no rales rhonchi's, equal chest movement, nonlabored. Heart: No gallop, murmur, rub, RRR. Abdomen: Soft, nontender, positive bowel sounds, no organomegaly. Extremities: No edema, no cyanosis. Neuro: No focal deficit, moving all extremities, alert oriented X 3 Skin: No rash, Warm and dry. Left upper arm functional AVF good bruit Radiology: Labs: Results from last 7 days Lab Units 05/08/20 0855 05/07/20 0738 05/05/20 1142 WBC 10*3/mm3 6.21 9.30 10.91* HEMOGLOBIN g/dL 7.6* 7.9* 8.0* HEMATOCRIT % 25.0* 25.3* 26.8* PLATELETS 10*3/mm3 447 478* 460* Results from last 7 days Lab Units 05/07/20 0738 05/04/20 1319 05/04/20 0802 SODIUM mmol/L 133* -- 134* POTASSIUM mmol/L 3.7 3.3* 3.8 CHLORIDE mmol/L 96* -- 96* CO2 mmol/L 21.0* -- 18.0* BUN mg/dL 39* -- 67* CREATININE mg/dL 7.56* -- 11.30* CALCIUM mg/dL 8.9 -- 9.1 MAGNESIUM mg/dL -- -- 2.4 ALBUMIN g/dL 3.00* -- -- Results from last 7 days Lab Units 05/07/20 0738 GLUCOSE mg/dL 140* Results from last 7 days Lab Units 05/07/20 0738 ALK PHOS U/L 66 BILIRUBIN mg/dL <0.2 ALT (SGPT) U/L 14 AST (SGOT) U/L 13 Assessment Impression: 1- ESRD. Home dialysis 5 times per week. On MWF schedule while in patient. CK 49. 2- Anemia 3- AMS. Improved ammonia 18. 4- Lumbar spine discitis Osteomyelitis with epidural abscess s/p I&D 5- Hx of liver transplant on immunosuppression 6- Mild hyponatremia 7. KIM: History of liver transplant, on immunosuppressive medication Plan: HD on monday Arrangement for outpatient antibiotic with the dialysis nurses. Patient can also go on inpatient dialysis at his previous unit. - Epo with HD -Pending CSA level - goal 60 -120 - Renal diet. - Avoid Nephrotoxic agents - Electrolytes will be corrected with HD. Karishma Hodge MD 05/09/20 14:33 EDT * Dewey Vidal MD - 05/09/2020 10:29 AM EDT Hemoglobin is stable. Will sign off. Please call with overt bleeding, acute drop in hemoglobin, abnormal LFTs, or other concerns. * Odette Grace MD - 05/09/2020 7:00 AM EDT Images from the original note were not included. [facility] Medicine Services PROGRESS NOTE Patient Name: Leoncio Rollins : 1975 Date of Admission: 04/28/2020 Primary Care Physician: Edgar Fournier MD Subjective Subjective CC: Back pain HPI: Comfortable in bed today. Was unable to walk with PT recently but insists he will be fine at home, needs 'walker with big wheels', has enough help there, won't need pain meds. History wanders a bit, ? Poor concentration. Review of Systems Neuro - no further tremors/confusion. Gen- No fevers, chills CV- No chest pain, palpitations Resp- No cough, dyspnea GI- No N/V/D, abd pain Objective Objective Vital Signs: Temp: [96.9 ??F (36.1 ??C)-98.8 ??F (37.1 ??C)] 98.8 ??F (37.1 ??C) Heart Rate: [84-100] 95 Resp: [16-20] 18 BP: (119-181)/(80-102) 170/83 Physical Exam: Constitutional - no acute distress, nontoxic, in bed, no visitors present. HEENT-NCAT, mucous membranes moist CV-RRR, S1 S2 normal, no m/r/g Resp-CTAB, no wheezes, rhonchi or rales Abd-soft, nontender, nondistended, normoactive bowel sounds, obese Ext-No lower extremity cyanosis, clubbing or edema bilaterally; RLE inspected and is nontender without evidence of injury. Neuro-alert and oriented, speech clear, moves all extremities Psych-normal affect Skin- No rash on exposed UE or LE bilaterally Results Reviewed: Results from last 7 days Lab Units 05/08/20 0855 05/07/20 0738 05/05/20 1142 WBC 10*3/mm3 6.21 9.30 10.91* HEMOGLOBIN g/dL 7.6* 7.9* 8.0* HEMATOCRIT % 25.0* 25.3* 26.8* PLATELETS 10*3/mm3 447 478* 460* INR -- 1.30* -- Results from last 7 days Lab Units 05/07/20 0738 05/04/20 1319 05/04/20 0802 SODIUM mmol/L 133* -- 134* POTASSIUM mmol/L 3.7 3.3* 3.8 CHLORIDE mmol/L 96* -- 96* CO2 mmol/L 21.0* -- 18.0* BUN mg/dL 39* -- 67* CREATININE mg/dL 7.56* -- 11.30* GLUCOSE mg/dL 140* -- 123* CALCIUM mg/dL 8.9 -- 9.1 ALT (SGPT) U/L 14 -- -- AST (SGOT) U/L 13 -- -- Estimated Creatinine Clearance: 15.3 mL/min (A) (by C-G formula based on SCr of 7.56 mg/dL (H)). Microbiology Results Abnormal Procedure Component Value - Date/Time Wound Culture - Wound, Spine, Lumbar [[id number]] (Abnormal) (Susceptibility) Collected: 04/29/201842 Lab Status: Edited Result - FINAL Specimen: Wound from Spine, Lumbar Updated: 05/07/20 0702 Wound Culture Rare Staphylococcus epidermidis Gram Stain No WBCs or organisms seen Susceptibility Staphylococcus epidermidis GREGORY Clindamycin Susceptible Inducible Clindamycin Resistance Negative Oxacillin Resistant Tetracycline Susceptible Trimethoprim + Sulfamethoxazole Susceptible Vancomycin Susceptible Susceptibility Comments Staphylococcus epidermidis This isolate does not demonstrate inducible clindamycin resistance in vitro. Fungus Culture - Tissue, Back, Lower [[id number]] Collected: 04/29/201914 Lab Status: Preliminary result Specimen: Tissue from Back, Lower Updated: 05/06/201999 Fungus Culture No fungus isolated at 1 week AFB Culture - Tissue, Back, Lower [[id number]] Collected: 04/29/201914 Lab Status: Preliminary result Specimen: Tissue from Back, Lower Updated: 05/06/201999 AFB Culture No AFB isolated at 1 week AFB Stain No acid fast bacilli seen on concentrated smear Anaerobic Culture - Tissue, Back, Lower [[id number]] Collected: 04/29/201914 Lab Status: Final result Specimen: Tissue from Back, Lower Updated: 05/04/20 0858 Anaerobic Culture No anaerobes isolated at 5 days Anaerobic Culture - Wound, Spine, Lumbar [[id number]] Collected: 04/29/201842 Lab Status: Final result Specimen: Wound from Spine, Lumbar Updated: 05/04/20 0858 Anaerobic Culture No anaerobes isolated at 5 days Blood Culture - Blood, Arm, Right [[id number]] Collected: 04/28/20 0650 Lab Status: Final result Specimen: Blood from Arm, Right Updated: 05/03/20 0800 Blood Culture No growth at 5 days Blood Culture - Blood, Wrist, Right [[id number]] Collected: 04/28/20 0701 Lab Status: Final result Specimen: Blood from Wrist, Right Updated: 05/03/20 0800 Blood Culture No growth at 5 days Tissue / Bone Culture - Tissue, Back, Lower [[id number]] Collected: 04/29/201914 Lab Status: Final result Specimen: Tissue from Back, Lower Updated: 05/02/20 0857 Tissue Culture No growth at 3 days Gram Stain Rare (1+) WBCs seen No organisms seen MRSA Screen, PCR (Inpatient) - Swab, Nares [[id number]] (Normal) Collected: 04/29/20 0150 Lab Status: Final result Specimen: Swab from Nares Updated: 04/29/20 0912 MRSA PCR Negative Narrative: MRSA Negative COVID PRE-OP / PRE-PROCEDURE SCREENING ORDER (NO ISOLATION) - Swab, Nasopharynx [[id number]] (Normal) Collected: 04/28/20 1505 Lab Status: Final result Specimen: Swab from Nasopharynx Updated: 04/28/20 1644 Narrative: The following orders were created for panel order COVID PRE-OP / PRE-PROCEDURE SCREENING ORDER (NO ISOLATION) - Swab, Nasopharynx. Procedure Abnormality Status --------- ------ Respiratory Panel PCR w/...[[id number]] Normal Final result Please view results for these tests on the individual orders. 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 Swab in UTM/VTM, 3-4 HR TAT - Swab, Nasopharynx [[id number]] (Normal) Collected: 04/28/20 1505 Lab Status: Final result Specimen: Swab from Nasopharynx Updated: 04/28/20 1644 ADENOVIRUS, PCR Not Detected Coronavirus 229E Not Detected Coronavirus HKU1 Not Detected Coronavirus NL63 Not Detected Coronavirus OC43 Not Detected COVID19 Not Detected Human Metapneumovirus Not Detected Human Rhinovirus/Enterovirus Not Detected Influenza A PCR Not Detected Influenza A H1 Not Detected Influenza A H1 2009 PCR Not Detected Influenza A H3 Not Detected Influenza B PCR Not Detected Parainfluenza Virus 1 Not Detected Parainfluenza Virus 2 Not Detected Parainfluenza Virus 3 Not Detected Parainfluenza Virus 4 Not Detected RSV, PCR Not Detected Bordetella pertussis pcr Not Detected Bordetella parapertussis PCR Not Detected Chlamydophila pneumoniae PCR Not Detected Mycoplasma pneumo by PCR Not Detected Narrative: Fact sheet for providers: https://docs.[employer]/wp-content/uploads/DOP1847-2342-XU7.1-EUA-Provi fhm-Fqqp-Qybnp-3.pdf Fact sheet for patients: https://docs.[employer]/wp-content/uploads/YKW8909-3116-SG0.6-OSX-Kkvllc a-Kwgu-Lfudm-1.pdf Imaging Results (Last 24 Hours) No results found for the last 24 hours. I have reviewed the medications: Scheduled Meds:carBAMazepine, 200 mg, Oral, Nightly cycloSPORINE modified, 50 mg, Oral, BID docusate sodium, 100 mg, Oral, BID doxycycline, 100 mg, Oral, Q12H entecavir, 0.5 mg, Oral, Weekly epoetin giancarlo/giancarlo-epbx, 20,000 Units, Subcutaneous, 3x Weekly famotidine, 10 mg, Oral, Daily hydrALAZINE, 100 mg, Oral, TID insulin detemir, 15 Units, Subcutaneous, Nightly insulin lispro, 0-9 Units, Subcutaneous, TID AC lisinopril, 10 mg, Oral, Q24H metoprolol tartrate, 100 mg, Oral, Q8H mycophenolate, 250 mg, Oral, Daily mycophenolate, 250 mg, Oral, Nightly NIFEdipine CC, 90 mg, Oral, BID oxyCODONE, 10 mg, Oral, Q6H sodium chloride, 10 mL, Intravenous, Q12H sodium chloride, 3 mL, Intravenous, Q12H vancomycin, 750 mg, Intravenous, Once per day on Mon Continuous Infusions:Pharmacy to dose vancomycin, sodium chloride, 9 mL/hr, Last Rate: 9 mL/hr (04/29/20 1608) PRN Meds:.??? acetaminophen OR acetaminophen OR acetaminophen ??? acetaminophen ??? calcium carbonate EX ??? dextrose ??? dextrose ??? glucagon (human recombinant) ??? HYDROmorphone ??? labetalol ??? [DISCONTINUED] HYDROmorphone AND naloxone ??? ondansetron ??? Pharmacy to dose vancomycin ??? sodium chloride ??? sodium chloride ??? temazepam ??? terazosin Assessment/Plan Assessment & Plan Active Hospital Problems Diagnosis POA ??? Sepsis (CMS/HCC) [A41.9] Yes ??? KIM (nonalcoholic steatohepatitis) [K75.81] Unknown ??? History of liver transplant (CMS/HCC) [Z94.4] Not Applicable ??? Immunosuppression (CMS/HCC) [D89.9] Unknown ??? Type 2 diabetes mellitus (CMS/HCC) [E11.9] Unknown ??? Altered mental state [R41.82] Unknown ??? ESRD (end stage renal disease) (CMS/HCC) [N18.6] Unknown ??? Hyponatremia [E87.1] Unknown ??? Discitis [M46.40] Unknown ??? 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] Unknown ??? Leukocytosis [D72.829] Unknown Resolved Hospital Problems No resolved problems to display. Brief Hospital Course to date: Leoncio Rollins is a 45 y.o. male with history of liver transplant 2018 secondary to KIM, ESRD on home dialysis 5 days per week, DM who presents with 1 week of back pain, fever and AMS. Found to havediscitis and epidural abscess on imaging. Severe sepsis (fever, confusion, leukocytosis, lactic acidosis) in setting of immunosuppression Discitis Epidural abscess - MRI L5/S1 with osteomyelitis/discitis and fluid collection concerning for epidural abscess - wound culture Staph epi -- discussed culture results with ID Dr Rodriguez -Neurosurgery consulted. 04/29 L5 laminectomy, epidural abscess I and D. - Continue vancomycin, case management working on infusion options, may need to have regular HD at outpatient center where antibiotics can be given after dialysis (unable to infuse with home dialysis). - PT: Walked 2 feet with mod assist. Pain in R mcknight seems a limiting factor. Patient insists he will be okay at home. HTN uncontrolled - continue hydralazine, nifedipine, metoprolol and lisinopril Acute anemia - heme pos stool and 'melena' but no fall in hgb with this - 2u in HD Monday - EGD 05/04 near normal - stop PPI and return CellCept dosing to his usual. - follow. Epo per nephrology Severe constip - resolved w aggressive mgmt Episode of altered mental status with diffuse tremors/myoclonus and tachycardia - resolved - suspect baclofen toxicity, now discontinued - neurontin held too Liver transplant on chronic immunosuppression ([facility]) - history of transplant at in 2018 for KIM - Will continue cyclosporine and cellcept -- patient's to bring in patient's entecavir - GI and ID consulted ; GI recommends continuing immunosuppressives ?? ESRD Uremia Hyponatremia - Currently on home dialysis 5 days per week ; follows w dr cheney - Nephrology following - epo ?? DM on NPH bid at home - continue levemir/SSI ?? Acute pain from lumbar infxn - pt denies chronic opioid use - scheduled oxycodone - but will need to wean off - decreased prn dilaudid to 0.25 - baclofen attemtped by NSGY - stopping due to tremors/confusion DVT prophylaxis: SCDs - I strongly urged the patient to mobilize (ie get up in the chair, work withPT) not only to help strength conditioning, but also to help prevent blood clots. ?? Disposition: I expect the patient to be discharged TBD. CODE STATUS: Code Status and Medical Interventions: Ordered at: 04/28/20 1125 Code Status: CPR Medical Interventions (Level of Support Prior to Arrest): Full * Alverto Ferrera MD - 05/08/2020 7:34 PM EDT Images from the original note were not included. [facility] Medicine Services PROGRESS NOTE Patient Name: Leoncio Rollins : 1975 Date of Admission: 04/28/2020 Primary Care Physician: Edgar Fournier MD Subjective Subjective CC: Back pain HPI: Transferred to chair this morning but had some spasms in the front of his leg. He has had similar spasms for years Review of Systems Gen- No fevers, chills CV- No chest pain, palpitations Resp- No cough, dyspnea GI- No N/V/D, abd pain Objective Objective Vital Signs: Temp: [96.9 ??F (36.1 ??C)-98.6 ??F (37 ??C)] 96.9 ??F (36.1 ??C) Heart Rate: [84-100] 100 Resp: [16-20] 20 BP: (119-181)/(72-102) 175/94 Physical Exam: Constitutional - no acute distress, nontoxic, in bed HEENT-NCAT, mucous membranes moist CV-RRR, S1 S2 normal, no m/r/g Resp-CTAB, no wheezes, rhonchi or rales Abd-soft, nontender, nondistended, normoactive bowel sounds, obese Ext-No lower extremity cyanosis, clubbing or edema bilaterally Neuro-alert and oriented, speech clear, moves all extremities Psych-normal affect Skin- No rash on exposed UE or LE bilaterally Results Reviewed: Results from last 7 days Lab Units 05/08/20 0855 05/07/20 0738 05/05/20 1142 WBC 10*3/mm3 6.21 9.30 10.91* HEMOGLOBIN g/dL 7.6* 7.9* 8.0* HEMATOCRIT % 25.0* 25.3* 26.8* PLATELETS 10*3/mm3 447 478* 460* INR -- 1.30* -- Results from last 7 days Lab Units 05/07/20 0738 05/04/20 1319 05/04/20 0802 SODIUM mmol/L 133* -- 134* POTASSIUM mmol/L 3.7 3.3* 3.8 CHLORIDE mmol/L 96* -- 96* CO2 mmol/L 21.0* -- 18.0* BUN mg/dL 39* -- 67* CREATININE mg/dL 7.56* -- 11.30* GLUCOSE mg/dL 140* -- 123* CALCIUM mg/dL 8.9 -- 9.1 ALT (SGPT) U/L 14 -- -- AST (SGOT) U/L 13 -- -- Estimated Creatinine Clearance: 15.3 mL/min (A) (by C-G formula based on SCr of 7.56 mg/dL (H)). Microbiology Results Abnormal Procedure Component Value - Date/Time Wound Culture - Wound, Spine, Lumbar [[id number]] (Abnormal) (Susceptibility) Collected: 04/29/20 1843 Lab Status: Edited Result - FINAL Specimen: Wound from Spine, Lumbar Updated: 05/07/20 07 Wound Culture Rare Staphylococcus epidermidis Gram Stain No WBCs or organisms seen Susceptibility Staphylococcus epidermidis GREGORY Clindamycin Susceptible Inducible Clindamycin Resistance Negative Oxacillin Resistant Tetracycline Susceptible Trimethoprim + Sulfamethoxazole Susceptible Vancomycin Susceptible Susceptibility Comments Staphylococcus epidermidis This isolate does not demonstrate inducible clindamycin resistance in vitro. Fungus Culture - Tissue, Back, Lower [[id number]] Collected: 04/29/20 191 Lab Status: Preliminary result Specimen: Tissue from Back, Lower Updated: 05/06/201999 Fungus Culture No fungus isolated at 1 week AFB Culture - Tissue, Back, Lower [[id number]] Collected: 04/29/201914 Lab Status: Preliminary result Specimen: Tissue from Back, Lower Updated: 05/06/201999 AFB Culture No AFB isolated at 1 week AFB Stain No acid fast bacilli seen on concentrated smear Anaerobic Culture - Tissue, Back, Lower [[id number]] Collected: 04/29/201914 Lab Status: Final result Specimen: Tissue from Back, Lower Updated: 05/04/20 0858 Anaerobic Culture No anaerobes isolated at 5 days Anaerobic Culture - Wound, Spine, Lumbar [[id number]] Collected: 04/29/20 1843 Lab Status: Final result Specimen: Wound from Spine, Lumbar Updated: 05/04/20 0858 Anaerobic Culture No anaerobes isolated at 5 days Blood Culture - Blood, Arm, Right [[id number]] Collected: 04/28/20 0650 Lab Status: Final result Specimen: Blood from Arm, Right Updated: 05/03/20 0800 Blood Culture No growth at 5 days Blood Culture - Blood, Wrist, Right [[id number]] Collected: 04/28/20 0701 Lab Status: Final result Specimen: Blood from Wrist, Right Updated: 05/03/20 0800 Blood Culture No growth at 5 days Tissue / Bone Culture - Tissue, Back, Lower [[id number]] Collected: 04/29/201914 Lab Status: Final result Specimen: Tissue from Back, Lower Updated: 05/02/20 0857 Tissue Culture No growth at 3 days Gram Stain Rare (1+) WBCs seen No organisms seen MRSA Screen, PCR (Inpatient) - Swab, Nares [[id number]] (Normal) Collected: 04/29/20 0150 Lab Status: Final result Specimen: Swab from Nares Updated: 04/29/20 0912 MRSA PCR Negative Narrative: MRSA Negative COVID PRE-OP / PRE-PROCEDURE SCREENING ORDER (NO ISOLATION) - Swab, Nasopharynx [[id number]] (Normal) Collected: 04/28/20 1505 Lab Status: Final result Specimen: Swab from Nasopharynx Updated: 04/28/20 1644 Narrative: The following orders were created for panel order COVID PRE-OP / PRE-PROCEDURE SCREENING ORDER (NO ISOLATION) - Swab, Nasopharynx. Procedure Abnormality Status --------- ------ Respiratory Panel PCR w/...[[id number]] Normal Final result Please view results for these tests on the individual orders. 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 Swab in UTM/VTM, 3-4 HR TAT - Swab, Nasopharynx [[id number]] (Normal) Collected: 04/28/20 1505 Lab Status: Final result Specimen: Swab from Nasopharynx Updated: 04/28/20 1644 ADENOVIRUS, PCR Not Detected Coronavirus 229E Not Detected Coronavirus HKU1 Not Detected Coronavirus NL63 Not Detected Coronavirus OC43 Not Detected COVID19 Not Detected Human Metapneumovirus Not Detected Human Rhinovirus/Enterovirus Not Detected Influenza A PCR Not Detected Influenza A H1 Not Detected Influenza A H1 2009 PCR Not Detected Influenza A H3 Not Detected Influenza B PCR Not Detected Parainfluenza Virus 1 Not Detected Parainfluenza Virus 2 Not Detected Parainfluenza Virus 3 Not Detected Parainfluenza Virus 4 Not Detected RSV, PCR Not Detected Bordetella pertussis pcr Not Detected Bordetella parapertussis PCR Not Detected Chlamydophila pneumoniae PCR Not Detected Mycoplasma pneumo by PCR Not Detected Narrative: Fact sheet for providers: https://docs.[employer]/wp-content/uploads/QRQ0095-5185-EY5.1-EUA-Provi grk-Lctc-Fgrnl-3.pdf Fact sheet for patients: https://docs.[employer]/wp-content/uploads/RBJ4934-9475-OW6.5-JRG-Uollbt e-Yqli-Mpmxg-1.pdf Imaging Results (Last 24 Hours) No results found for the last 24 hours. I have reviewed the medications: Scheduled Meds:carBAMazepine, 200 mg, Oral, Nightly cycloSPORINE modified, 50 mg, Oral, BID docusate sodium, 100 mg, Oral, BID doxycycline, 100 mg, Oral, Q12H entecavir, 0.5 mg, Oral, Weekly epoetin giancarlo/giancarlo-epbx, 20,000 Units, Subcutaneous, 3x Weekly famotidine, 10 mg, Oral, Daily hydrALAZINE, 100 mg, Oral, TID insulin detemir, 15 Units, Subcutaneous, Nightly insulin lispro, 0-9 Units, Subcutaneous, TID AC lisinopril, 10 mg, Oral, Q24H metoprolol tartrate, 100 mg, Oral, Q8H mycophenolate, 250 mg, Oral, Daily mycophenolate, 250 mg, Oral, Nightly NIFEdipine CC, 90 mg, Oral, BID oxyCODONE, 10 mg, Oral, Q6H sodium chloride, 10 mL, Intravenous, Q12H sodium chloride, 3 mL, Intravenous, Q12H vancomycin, 750 mg, Intravenous, Once per day on Mon Continuous Infusions:Pharmacy to dose vancomycin, sodium chloride, 9 mL/hr, Last Rate: 9 mL/hr (04/29/20 1608) PRN Meds:.??? acetaminophen OR acetaminophen OR acetaminophen ??? acetaminophen ??? albumin human ??? calcium carbonate EX ??? dextrose ??? dextrose ??? glucagon (human recombinant) ??? HYDROmorphone ??? labetalol ??? [DISCONTINUED] HYDROmorphone AND naloxone ??? ondansetron ??? Pharmacy to dose vancomycin ??? sodium chloride ??? sodium chloride ??? temazepam ??? terazosin Assessment/Plan Assessment & Plan Active Hospital Problems Diagnosis POA ??? Sepsis (CMS/HCC) [A41.9] Yes ??? KIM (nonalcoholic steatohepatitis) [K75.81] Unknown ??? History of liver transplant (CMS/HCC) [Z94.4] Not Applicable ??? Immunosuppression (CMS/HCC) [D89.9] Unknown ??? Type 2 diabetes mellitus (CMS/HCC) [E11.9] Unknown ??? Altered mental state [R41.82] Unknown ??? ESRD (end stage renal disease) (CMS/HCC) [N18.6] Unknown ??? Hyponatremia [E87.1] Unknown ??? Discitis [M46.40] Unknown ??? 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] Unknown ??? Leukocytosis [D72.829] Unknown Resolved Hospital Problems No resolved problems to display. Brief Hospital Course to date: Leoncio Rollins is a 45 y.o. male with history of liver transplant 2018 secondary to KIM, ESRD on home dialysis 5 days per week, DM who presents with 1 week of back pain, fever and AMS. Found to havediscitis and epidural abscess on imaging. Altered mental status with diffuse tremors/myoclonus and tachycardia - resolved - suspect baclofen toxicity, now discontinued - neurontin held too - normal ammonia level (18) - minimize narcotics Severe sepsis (fever, confusion, leukocytosis, lactic acidosis) in setting of immunosuppression Discitis Epidural abscess - MRI L5/S1 with osteomyelitis/discitis and fluid collection concerning for epidural abscess - wound culture Staph epi -- discussed culture results with ID Dr Rodriguez -Neurosurgery consulted. 04/29 L5 laminectomy, epidural abscess I and D. - Continue vancomycin, case management working on infusion options, may need to have regular HD at outpatient center where antibiotics can be given after dialysis (unable to infuse with home dialysis). HTN uncontrolled - continue hydralazine, nifedipine, metoprolol and lisinopril Acute anemia - heme pos stool and 'melena' but no fall in hgb with this - 2u in HD Monday - EGD 05/04 near normal - stop PPI and return CellCept dosing to his usual. - follow. Epo per nephrology Severe constip - resolved w aggressive mgmt Liver transplant on chronic immunosuppression ([facility]) - history of transplant at in 2018 for KIM - Will continue cyclosporine and cellcept -- patient's to bring in patient's entecavir - GI and ID consulted ; GI recommends continuing immunosuppressives ?? ESRD Uremia Hyponatremia - Currently on home dialysis 5 days per week - Nephrology following - epo ?? DM on NPH bid at home - continue levemir/SSI ?? Acute pain from lumbar infxn - pt denies chronic opioid use - scheduled oxycodone - but will need to wean off - decreased prn dilaudid to 0.25 - baclofen attemtped by NSGY - stopping due to tremors/confusion DVT prophylaxis: SCDs - I strongly urged the patient to mobilize (ie get up in the chair, work withPT) not only to help strength conditioning, but also to help prevent blood clots. ?? Disposition: I expect the patient to be discharged TBD. CODE STATUS: Code Status and Medical Interventions: Ordered at: 04/28/20 1125 Code Status: CPR Medical Interventions (Level of Support Prior to Arrest): Full * Cayetano Rodriguez MD - 05/08/2020 4:01 PM EDT [facility] Progress Note Date of Admission: 04/28/2020 Antibiotics: Vancomycin and oral doxycycline CC: Chief Complaint Patient presents with ??? Back Pain ??? Multiple complaints S: Patient more alert but still very reluctant to work with PT or move out of bed. Now afebrile hemodynamic stable getting hemodialysis. O: BP 159/95 (BP Location: Left arm, Patient Position: Lying) Pulse 91 Temp 98.2 ??F (36.8 ??C) (Temporal) Resp 20 Ht 170.2 cm (67 ) Wt 122 kg (268 lb) SpO2 94% BMI 41.97 kg/m?? Temp (24hrs), Av.3 ??F (36.8 ??C), Min:98 ??F (36.7 ??C), Max:98.6 ??F (37 ??C) PE: GENERAL: lethargic in NAD. Pale appearance chronically ill-appearing, confusion improved HEENT: Normocephalic, atraumatic. PERRL. EOMI. No conjunctival injection. No icterus. Oropharynx clear without evidence of thrush or exudate. No evidence of peridontal disease. NECK: Supple without nuchal rigidity LYMPH: No cervical, axillary or inguinal lymphadenopathy. No neck masses HEART: RRR; No murmur, rubs, gallops. LUNGS: Clear to auscultation bilaterally without wheezing, rales, rhonchi. Normal respiratory effort. ABDOMEN: Soft, obese and distended positive bowel sounds. No rebound or guarding. EXT: No cyanosis, clubbing or edema : Normal appearing genitalia without Anders catheter. MSK: decreased ROM of l spine SKIN: Warm and dry without cutaneous eruptions. NEURO: confused and tremor but improving. Lethargy. PSYCHIATRIC: Poor insight and judgement. Cooperative with PE ?? Laboratory Data Results from last 7 days Lab Units 05/08/20 0855 05/07/20 0738 05/05/20 1142 WBC 10*3/mm3 6.21 9.30 10.91* HEMOGLOBIN g/dL 7.6* 7.9* 8.0* HEMATOCRIT % 25.0* 25.3* 26.8* PLATELETS 10*3/mm3 447 478* 460* Results from last 7 days Lab Units 05/07/20 0738 SODIUM mmol/L 133* POTASSIUM mmol/L 3.7 CHLORIDE mmol/L 96* CO2 mmol/L 21.0* BUN mg/dL 39* CREATININE mg/dL 7.56* GLUCOSE mg/dL 140* CALCIUM mg/dL 8.9 Results from last 7 days Lab Units 05/07/20 0738 ALK PHOS U/L 66 BILIRUBIN mg/dL <0.2 ALT (SGPT) U/L 14 AST (SGOT) U/L 13 Results from last 7 days Lab Units 05/06/20 0557 SED RATE mm/hr 44* Results from last 7 days Lab Units 05/08/20 0855 CRP mg/dL 12.16* Estimated Creatinine Clearance: 15.3 mL/min (A) (by C-G formula based on SCr of 7.56 mg/dL (H)). Microbiology: Blood cultures negative to date Wound cultures with coag-negative staph Radiology: Imaging Results (Last 24 Hours) No results found for the last 24 hours. 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 ASSESSMENT: Patient is a 45-year-old with Kim with end-stage liver disease underwent transplant on immunosuppressive therapy on home hemodialysis 5 days/week with end-stage renal disease recent right chest walldialysis cath removed with some erythema this was followed by increasing lower back pain which progressed to fevers chills difficulty with ambulation. He was seen at several ERs including [facility] given Keflex with some improvement. Now admitted with fevers chills leukocytosis MRI revealing lumbar spine discitis osteomyelitis and fluid seen on MRI and epidural space of L5-S1 but no overt neurologic deficits today. ?? Get old records from [facility], it appears no blood cultures were obtained at any ER visit and had partially treated case with Keflex with some improvement. Spine culture with coag negative staph will continue vancomycin and oral doxycycline, white blood cell count and CRP coming down. Encouraging patient to work with PT as remains bedbound continue long-term antibiotics and rehab plan on IV antibiotics with vancomycin with dialysis once ready for discharge. PLAN: Continue vancomycin dosed by pharmacy on hemodialysis Monitor CBC and CRP weekly Discussed complex case with Dr. Ferrera today Cayetano Rodriguez MD 05/08/2020 * Marilee De La Cruz RN - 05/08/2020 4:00 PM EDT Continued Stay Note Marcelo Patient Name: Leoncio Rollins Today's Date: 05/08/2020 Admit Date: 04/28/2020 Discharge Plan Row Name 05/08/20 1555 Plan Plan home Plan Comments Case mgt f/u note. Patient currently in dialysis,so road train driver did not get to discuss d/c plan with him. I spoke with the [facility] dialysis clinic ([place] [phone]), I also spokewith the dailysis RN ( Marilee) who does the home teaching, she stated they have not done IV antibiticsthrough his port and did not think this could be done at home. they recommended [facility] for his routine dialysis while he is on IV vanc and then returning to home dialysis when IV antibiotics complete, unless arrangemetns canbe made for home infusion with PICC. case mgt will con't to follow. Final Discharge Disposition Code 01 - home or self-care Discharge Codes No documentation. Marilee De La Cruz RN * Kody Wong MD - 05/08/2020 3:46 PM EDT LOS: 10 days Patient Care Team: Edgar Fournier MD as PCP - General (Family Medicine) Reason For Visit: F/U ESRD Subjective Patient seen on dialysis. No new events. Review of Systems: Denies nausea vomiting chest pain or shortness of breath. Objective carBAMazepine, 200 mg, Oral, Nightly cycloSPORINE modified, 50 mg, Oral, BID docusate sodium, 100 mg, Oral, BID doxycycline, 100 mg, Oral, Q12H entecavir, 0.5 mg, Oral, Weekly epoetin giancarlo/giancarlo-epbx, 20,000 Units, Subcutaneous, 3x Weekly famotidine, 10 mg, Oral, Daily hydrALAZINE, 100 mg, Oral, TID insulin detemir, 15 Units, Subcutaneous, Nightly insulin lispro, 0-9 Units, Subcutaneous, TID AC lisinopril, 10 mg, Oral, Q24H metoprolol tartrate, 100 mg, Oral, Q8H mycophenolate, 250 mg, Oral, Daily mycophenolate, 250 mg, Oral, Nightly NIFEdipine CC, 90 mg, Oral, BID oxyCODONE, 10 mg, Oral, Q6H sodium chloride, 10 mL, Intravenous, Q12H sodium chloride, 3 mL, Intravenous, Q12H vancomycin, 750 mg, Intravenous, Once per day on Mon Pharmacy to dose vancomycin, sodium chloride, 9 mL/hr, Last Rate: 9 mL/hr (04/29/20 1608) Vital Signs: Blood pressure 159/95, pulse 91, temperature 98.2 ??F (36.8 ??C), temperature source Temporal, resp. rate 20, height 170.2 cm (67 ), weight 122 kg (268 lb), SpO2 94 %. Flowsheet Rows First Filed Value Admission Height 170.2 cm (67 ) Documented at 04/27/2020 2355 Admission Weight 125 kg (275 lb) Documented at 04/27/2020 2355 05/07 0701 - 05/08 0700 In: - Out: 150 [Urine:150] Physical Exam: General Appearance: Awake alert oriented x3. No distress. Lungs: Clear auscultation, no rales rhonchi's, equal chest movement, nonlabored. Heart: No gallop, murmur, rub, RRR. Abdomen: Soft, nontender, positive bowel sounds, no organomegaly. Extremities: No edema, no cyanosis. Neuro: No focal deficit, moving all extremities, alert oriented X 3 Skin: No rash, Warm and dry. Left upper arm functional AVF good bruit Radiology: Labs: Results from last 7 days Lab Units 05/08/20 0855 05/07/20 0738 05/05/20 1142 WBC 10*3/mm3 6.21 9.30 10.91* HEMOGLOBIN g/dL 7.6* 7.9* 8.0* HEMATOCRIT % 25.0* 25.3* 26.8* PLATELETS 10*3/mm3 447 478* 460* Results from last 7 days Lab Units 05/07/20 0738 05/04/20 1319 05/04/20 0802 SODIUM mmol/L 133* -- 134* POTASSIUM mmol/L 3.7 3.3* 3.8 CHLORIDE mmol/L 96* -- 96* CO2 mmol/L 21.0* -- 18.0* BUN mg/dL 39* -- 67* CREATININE mg/dL 7.56* -- 11.30* CALCIUM mg/dL 8.9 -- 9.1 MAGNESIUM mg/dL -- -- 2.4 ALBUMIN g/dL 3.00* -- -- Results from last 7 days Lab Units 05/07/20 0738 GLUCOSE mg/dL 140* Results from last 7 days Lab Units 05/07/20 0738 ALK PHOS U/L 66 BILIRUBIN mg/dL <0.2 ALT (SGPT) U/L 14 AST (SGOT) U/L 13 Assessment Impression: 1- ESRD. Home dialysis 5 times per week. On MWF schedule while in patient. CK 49. 2- Anemia 3- AMS. Improved ammonia 18. 4- Lumbar spine discitis Osteomyelitis with epidural abscess s/p I&D 5- Hx of liver transplant on immunosuppression 6- Mild hyponatremia 7. KIM: History of liver transplant, on immunosuppressive medication Plan: Dialysis in progress. Avoid PICC line. Arrangement for outpatient antibiotic with the dialysis nurses. Patient can also go on inpatient dialysis at his previous unit. - Epo with HD - Gastroenterology managing Immunosuppression. Will recommend to hold Cellcept for active infectionfor 4 weeks. -Pending CSA -recheck level - goal 60 -120 - Renal diet. - Avoid Nephrotoxic agents - Electrolytes will be corrected with HD. Kody Wong MD 05/08/20 15:46 EDT * Karli Camp RPH - 05/08/2020 1:34 PM EDT Images from the original note were not included. Pharmacy Consult-Vancomycin Dosing Leoncio Rollins is a 45 y.o. male receiving vancomycin therapy. Indication: Sepsis secondary to spine discitis/osteomyelitis Consulting Provider: Hospitalist ID Consult: Cayetano Rodriguez MD Goal trough: 15-20mcg/ml Current Antimicrobial Therapy Anti-Infectives (From admission, onward) Ordered Dose/Rate Route Frequency Start Stop 05/08/20 1058 vancomycin in dextrose 5% 150 mL (VANCOCIN) IVPB 750 mg Ordering Provider: Karli Camp RPH 750 mg over 60 Minutes Intravenous Once per day on Mon05/08/20 1700 05/15/20 1659 05/07/20 1937 doxycycline (MONODOX) capsule 100 mg Ordering Provider: Cayetano Rodriguez MD 100 mg Oral Every 12 Hours Scheduled 05/07/20 2100 05/14/20 20505/06/20 1112 vancomycin in dextrose 5% 150 mL (VANCOCIN) IVPB 750 mg Ordering Provider: Karli Camp RPH 750 mg over 60 Minutes Intravenous Once 05/06/20 1600 05/06/20 1850 05/05/20 1044 Pharmacy to dose vancomycin Karli Camp RPH reviewed the order on 05/07/20 1126. Ordering Provider: Karli Camp RPH Does not apply Continuous PRN 05/05/20 1044 05/12/20 1043 05/04/20 1324 vancomycin in dextrose 5% 150 mL (VANCOCIN) IVPB 750 mg Ordering Provider: Vivek Ramos RPH 750 mg over 60 Minutes Intravenous Once 05/04/20 1600 05/04/20 1608 05/01/20 1140 vancomycin in dextrose 5% 150 mL (VANCOCIN) IVPB 750 mg Ordering Provider: Germán Resendiz RPH 750 mg over 60 Minutes Intravenous Once 05/01/20 1230 05/01/20 1704 04/29/20 1119 vancomycin (VANCOCIN) in iso-osmotic dextrose IVPB 1 g (premix) 200 mL Ordering Provider: Martín, Germán, RPH 1,000 mg over 60 Minutes Intravenous Once 04/29/20 1600 04/29/20 1750 04/28/20 1131 entecavir (BARACLUDE) tablet 0.5 mg (PATIENT SUPPLIED MED) Ordering Provider: Dewey Betancourt MD 0.5 mg Oral Weekly 04/28/20 2130 04/28/20 0650 vancomycin 2500 mg/500 mL 0.9% NS IVPB ([facility]) Ordering Provider: Kym Garcia, DO 20 mg/kg ?? 125 kg over 150 Minutes Intravenous Once 04/28/20 0652 04/28/20 1256 04/28/20 0650 cefTRIAXone (ROCEPHIN) 1 g/100 mL 0.9% NS (MBP) Ordering Provider: Kym Garcia DO 1 g over 30 Minutes Intravenous Once 04/28/20 0652 04/28/20 0859 Allergies Allergies as of 04/27/2020 (Not on File) Labs Results from last 7 days Lab Units 05/07/20 0738 05/04/20 0802 BUN mg/dL 39* 67* CREATININE mg/dL 7.56* 11.30* Results from last 7 days Lab Units 05/08/20 0855 05/07/20 0738 05/05/20 1142 WBC 10*3/mm3 6.21 9.30 10.91* Evaluation of Dosing Last Dose Received in the ED/Outside Facility: 2500mg in ED 04/28 Is Patient on Dialysis or Renal Replacement: HD 5 days a week [employer] C[employer]IST now on a MWF Schedule Ht - 170.2 cm (67 ) Wt - 122 kg (268 lb) Estimated Creatinine Clearance: 15.3 mL/min (A) (by C-G formula based on SCr of 7.56 mg/dL (H)). Intake & Output (last 3 days) 05/05 701 - 05/06 - 05/07 - 05/08 0705/08 - 05/09 0700 P.O. 250 600 I.V. (mL/kg) 325 (2.7) Total Intake(mL/kg) 250 (2) 925 (7.6) Urine (mL/kg/hr) 0 (0) 150 (0.1) Other 2250 Total Output 2250 150 Net +250 -1325 -150 Urine Unmeasured Occurrence 1 x 2 x Stool Unmeasured Occurrence 2 x Microbiology and Radiology Microbiology Results (last 10 days) Procedure Component Value - Date/Time Anaerobic Culture - Tissue, Back, Lower [[id number]] Collected: 04/29/201914 Lab Status: Final result Specimen: Tissue from Back, Lower Updated: 05/04/20 0858 Anaerobic Culture No anaerobes isolated at 5 days Fungus Culture - Tissue, Back, Lower [[id number]] Collected: 04/29/201914 Lab Status: Preliminary result Specimen: Tissue from Back, Lower Updated: 05/06/201999 Fungus Culture No fungus isolated at 1 week Tissue / Bone Culture - Tissue, Back, Lower [[id number]] Collected: 04/29/201914 Lab Status: Final result Specimen: Tissue from Back, Lower Updated: 05/02/20 0857 Tissue Culture No growth at 3 days Gram Stain Rare (1+) WBCs seen No organisms seen AFB Culture - Tissue, Back, Lower [[id number]] Collected: 04/29/201914 Lab Status: Preliminary result Specimen: Tissue from Back, Lower Updated: 05/06/201999 AFB Culture No AFB isolated at 1 week AFB Stain No acid fast bacilli seen on concentrated smear Wound Culture - Wound, Spine, Lumbar [[id number]] (Abnormal) (Susceptibility) Collected: 04/29/201842 Lab Status: Edited Result - FINAL Specimen: Wound from Spine, Lumbar Updated: 05/07/20 0702 Wound Culture Rare Staphylococcus epidermidis Gram Stain No WBCs or organisms seen Susceptibility Staphylococcus epidermidis GREGORY Clindamycin Susceptible Inducible Clindamycin Resistance Negative Oxacillin Resistant Tetracycline Susceptible Trimethoprim + Sulfamethoxazole Susceptible Vancomycin Susceptible Susceptibility Comments Staphylococcus epidermidis This isolate does not demonstrate inducible clindamycin resistance in vitro. Anaerobic Culture - Wound, Spine, Lumbar [[id number]] Collected: 04/29/20 184 Lab Status: Final result Specimen: Wound from Spine, Lumbar Updated: 05/04/20 0858 Anaerobic Culture No anaerobes isolated at 5 days MRSA Screen, PCR (Inpatient) - Swab, Nares [[id number]] (Normal) Collected: 04/29/20 0150 Lab Status: Final result Specimen: Swab from Nares Updated: 04/29/20 0912 MRSA PCR Negative Narrative: MRSA Negative COVID PRE-OP / PRE-PROCEDURE SCREENING ORDER (NO ISOLATION) - Swab, Nasopharynx [[id number]] (Normal) Collected: 04/28/20 1505 Lab Status: Final result Specimen: Swab from Nasopharynx Updated: 04/28/201643 Narrative: The following orders were created for panel order COVID PRE-OP / PRE-PROCEDURE SCREENING ORDER (NO ISOLATION) - Swab, Nasopharynx. Procedure Abnormality Status --------- ------ Respiratory Panel PCR w/...[[id number]] Normal Final result Please view results for these tests on the individual orders. 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 Swab in UTM/VTM, 3-4 HR TAT - Swab, Nasopharynx [[id number]] (Normal) Collected: 04/28/20 1505 Lab Status: Final result Specimen: Swab from Nasopharynx Updated: 04/28/201643 ADENOVIRUS, PCR Not Detected Coronavirus 229E Not Detected Coronavirus HKU1 Not Detected Coronavirus NL63 Not Detected Coronavirus OC43 Not Detected COVID19 Not Detected Human Metapneumovirus Not Detected Human Rhinovirus/Enterovirus Not Detected Influenza A PCR Not Detected Influenza A H1 Not Detected Influenza A H1 2009 PCR Not Detected Influenza A H3 Not Detected Influenza B PCR Not Detected Parainfluenza Virus 1 Not Detected Parainfluenza Virus 2 Not Detected Parainfluenza Virus 3 Not Detected Parainfluenza Virus 4 Not Detected RSV, PCR Not Detected Bordetella pertussis pcr Not Detected Bordetella parapertussis PCR Not Detected Chlamydophila pneumoniae PCR Not Detected Mycoplasma pneumo by PCR Not Detected Narrative: Fact sheet for providers: https://docs.[employer]/wp-content/uploads/CAB4789-3647-HC9.1-EUA-Provi iun-Zfik-Qayjm-3.pdf Fact sheet for patients: https://docs.[employer]/wp-content/uploads/RBH4781-0307-UN5.8-RPO-Baktgn o-Lnkk-Dttft-1.pdf Evaluation of Level Results from last 7 days Lab Units 05/08/20 0855 05/06/20 0557 VANCOMYCIN RM mcg/mL 21.30 23.20 Assessment/Plan: 1. Pharmacy to dose vancomycin for discitis/osteomyelitis. Goal trough 15-20 mcg/mL. 2. Patient now on a Monday, Monday, Monday dialysis schedule. Last dose received was vancomycin 750 mg on 05/06 following dialysis. Vancomycin random today prior to dialysis resulted in 21.3 mcg/mL. Assuming an ~30% decrease in concentration of vancomycin post dialysis will continue today with vancomycin 750 mg administered following dialysis. 3. Vancomycin random level ordered for 05/13 with AM labs prior to dialysis to assess continued appropriateness of dose. 4. Pharmacy will continue to monitor renal function, cultures and sensitivities, and clinical status to adjust regimen as necessary. Karli Camp, PharmD [employer] 05/08/2020 13:24 EDT * Angela Romero, RD - 05/08/2020 12:08 PM EDT Clinical Nutrition Reason for Visit: [facility] Patient Name: Leoncio Rollins Date of : 1975 Date of Encounter: 05/08/20 12:09 EDT Admission date: 04/28/2020 Nutrition Assessment Admission Problem List: Sepsis (CMS/HCC) KIM (nonalcoholic steatohepatitis) History of liver transplant (CMS/HCC) Immunosuppression (CMS/HCC) Type 2 diabetes mellitus (CMS/HCC) Altered mental state ESRD (end stage renal disease) ([facility]/HCC) Hyponatremia Discitis Epidural abscess Leukocytosis PMH: He has a past medical history of Diabetes mellitus (CMS/HCC), Dialysis patient (CMS/HCC), Hemorrhage, and Liver transplanted (CMS/HCC). PSxH: He has a past surgical history that includes Cholecystectomy; lumbar laminectomy discectomy decompression (N/A, 04/29/2020); and Esophagogastroduodenoscopy (N/A, 05/04/2020). Reported/Observed/Food/Nutrition Related History: Overall improved intake; patient not available to interview at this time. Anthropometrics Height: Height: 170.2 cm (67 ) Weight: Weight: 122 kg (268 lb) (04/29/20 1551) BMI: BMI (Calculated): 42 BMI classification: Obese Class III extreme obesity: > or equal to 40kg/m2 Labs reviewed Results from last 7 days Lab Units 05/07/20 0738 SODIUM mmol/L 133* POTASSIUM mmol/L 3.7 CHLORIDE mmol/L 96* CO2 mmol/L 21.0* BUN mg/dL 39* CREATININE mg/dL 7.56* CALCIUM mg/dL 8.9 BILIRUBIN mg/dL <0.2 ALK PHOS U/L 66 ALT (SGPT) U/L 14 AST (SGOT) U/L 13 GLUCOSE mg/dL 140* Results from last 7 days Lab Units 05/08/20 0722 05/07/20200205/07/20 1608 05/07/20 1107 05/07/20 0738 05/06/20 2152 GLUCOSE mg/dL 161* 212* 180* 273* 144* 171* No results found for: HGBA1C Medications reviewed Pertinent: Yes Current Nutrition Prescription PO: Diet Regular; Consistent Carbohydrate, Low Fiber / Low Residue, Low Fat Oral Nutrition Supplement: [employer] TID Evaluation of Received Nutrient/Fluid Intake: 2 Days: 56% x 4 meals Nutrition Diagnosis Problem 1 ?? Row Name 05/05/20 1638 ? Nutrition Diagnoses Problem 1 ?? Problem 1 Inadequate Intake/Infusion ? Etiology (related to) MNT for Treatment/Condition ? Signs/Symptoms (evidenced by) PO Intake ? Percent (%) intake recorded 50 % ? Over number of meals 3 ?? Nutrition Intervention 1. Follow treatment progress, Care plan reviewed, Supplement provided Goal: General: Nutrition support treatment PO: Continue positive trend Monitoring/Evaluation: Per protocol, PO intake, Supplement intake Will Continue to follow per protocol Angela Romero RD Time Spent: 20min * Cayetano Rodriguez MD - 05/07/2020 7:36 PM EDT [facility] Progress Note Date of Admission: 04/28/2020 Antibiotics: Vancomycin CC: Chief Complaint Patient presents with ??? Back Pain ??? Multiple complaints S: Patient more alert still complains of back pain had some fevers yesterday, white blood cell count down unable to work with PT. O: BP 114/76 Pulse 89 Temp 98.3 ??F (36.8 ??C) (Oral) Resp 16 Ht 170.2 cm (67 ) Wt 122 kg (268 lb) SpO2 91% BMI 41.97 kg/m?? Temp (24hrs), Av ??F (37.2 ??C), Min:98.2 ??F (36.8 ??C), Max:100 ??F (37.8 ??C) PE: GENERAL: lethargic in NAD. Pale appearance chronically ill-appearing, confusion HEENT: Normocephalic, atraumatic. PERRL. EOMI. No conjunctival injection. No icterus. Oropharynx clear without evidence of thrush or exudate. No evidence of peridontal disease. NECK: Supple without nuchal rigidity LYMPH: No cervical, axillary or inguinal lymphadenopathy. No neck masses HEART: RRR; No murmur, rubs, gallops. LUNGS: Clear to auscultation bilaterally without wheezing, rales, rhonchi. Normal respiratory effort. ABDOMEN: Soft, obese and distended positive bowel sounds. No rebound or guarding. EXT: No cyanosis, clubbing or edema : Normal appearing genitalia without Anders catheter. MSK: decreased ROM of l spine SKIN: Warm and dry without cutaneous eruptions. NEURO: confused and tremor. Lethargy. PSYCHIATRIC: Poor insight and judgement. Cooperative with PE ?? Laboratory Data Results from last 7 days Lab Units 05/07/20 0738 05/05/20 1142 05/04/20 0802 WBC 10*3/mm3 9.30 10.91* 11.93* HEMOGLOBIN g/dL 7.9* 8.0* 7.5* HEMATOCRIT % 25.3* 26.8* 24.2* PLATELETS 10*3/mm3 478* 460* 433 Results from last 7 days Lab Units 05/07/20 0738 SODIUM mmol/L 133* POTASSIUM mmol/L 3.7 CHLORIDE mmol/L 96* CO2 mmol/L 21.0* BUN mg/dL 39* CREATININE mg/dL 7.56* GLUCOSE mg/dL 140* CALCIUM mg/dL 8.9 Results from last 7 days Lab Units 05/07/20 0738 ALK PHOS U/L 66 BILIRUBIN mg/dL <0.2 ALT (SGPT) U/L 14 AST (SGOT) U/L 13 Results from last 7 days Lab Units 05/06/20 0557 SED RATE mm/hr 44* Results from last 7 days Lab Units 05/06/20 0557 CRP mg/dL 18.73* Estimated Creatinine Clearance: 15.3 mL/min (A) (by C-G formula based on SCr of 7.56 mg/dL (H)). Microbiology: Blood cultures negative to date Wound cultures with coag-negative staph Radiology: Imaging Results (Last 24 Hours) No results found for the last 24 hours. 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 ASSESSMENT: Patient is a 45-year-old with Kim with end-stage liver disease underwent transplant on immunosuppressive therapy on home hemodialysis 5 days/week with end-stage renal disease recent right chest walldialysis cath removed with some erythema this was followed by increasing lower back pain which progressed to fevers chills difficulty with ambulation. He was seen at several ERs including [facility] given Keflex with some improvement. Now admitted with fevers chills leukocytosis MRI revealing lumbar spine discitis osteomyelitis and fluid seen on MRI and epidural space of L5-S1 but no overt neurologic deficits today. ?? Get old records from [facility], it appears no blood cultures were obtained at any ER visit and had partially treated case with Keflex with some improvement. Spine culture with coag negative staph will continue vancomycin Continue long-term antibiotics getting hemodialysis today concern for baclofen toxicity expect slowrecovery. PLAN: Continue vancomycin dosed by pharmacy on hemodialysis DC ceftriaxone Add doxycycline Hymovis p.o. twice daily Monitor CBC and CRP, and CPK Cayetano Rodriguez MD 05/07/2020 * Alverto Ferrera MD - 05/07/2020 4:59 PM EDT Images from the original note were not included. [facility] Medicine Services PROGRESS NOTE Patient Name: Leoncio Rollins : 1975 Date of Admission: 04/28/2020 Primary Care Physician: Edgar Fournier MD Subjective Subjective CC: Back pain HPI: Still having some low back pain. Declined to get out of bed today with PT, but state he doesn't have difficulty walking. Review of Systems Gen- No fevers, chills CV- No chest pain, palpitations Resp- No cough, dyspnea GI- No N/V/D, abd pain Objective Objective Vital Signs: Temp: [98.2 ??F (36.8 ??C)-100 ??F (37.8 ??C)] 98.3 ??F (36.8 ??C) Heart Rate: [89-125] 89 Resp: [16-18] 16 BP: (131-213)/(68-97) 131/68 Physical Exam: Constitutional - no acute distress, nontoxic, in bed HEENT-NCAT, mucous membranes moist CV-RRR, S1 S2 normal, no m/r/g, fistula LUE Resp-CTAB, no wheezes, rhonchi or rales Abd-soft, nontender, nondistended, normoactive bowel sounds, overweight Ext-+ LE edema bilaterally Neuro-alert and oriented, speech clear, moves all extremities Psych-normal affect Skin- No rash on exposed UE or LE bilaterally Results Reviewed: Results from last 7 days Lab Units 05/07/20 0738 05/05/20 1142 05/04/20 0802 WBC 10*3/mm3 9.30 10.91* 11.93* HEMOGLOBIN g/dL 7.9* 8.0* 7.5* HEMATOCRIT % 25.3* 26.8* 24.2* PLATELETS 10*3/mm3 478* 460* 433 INR 1.30* -- -- Results from last 7 days Lab Units 05/07/20 0738 05/04/20 1319 05/04/20 0802 05/01/20 0907 SODIUM mmol/L 133* -- 134* 134* POTASSIUM mmol/L 3.7 3.3* 3.8 4.1 CHLORIDE mmol/L 96* -- 96* 95* CO2 mmol/L 21.0* -- 18.0* 20.0* BUN mg/dL 39* -- 67* 81* CREATININE mg/dL 7.56* -- 11.30* 10.03* GLUCOSE mg/dL 140* -- 123* 195* CALCIUM mg/dL 8.9 -- 9.1 8.6 ALT (SGPT) U/L 14 -- -- -- AST (SGOT) U/L 13 -- -- -- Estimated Creatinine Clearance: 15.3 mL/min (A) (by C-G formula based on SCr of 7.56 mg/dL (H)). Microbiology Results Abnormal Procedure Component Value - Date/Time Wound Culture - Wound, Spine, Lumbar [[id number]] (Abnormal) (Susceptibility) Collected: 04/29/201842 Lab Status: Edited Result - FINAL Specimen: Wound from Spine, Lumbar Updated: 05/07/20 07 Wound Culture Rare Staphylococcus epidermidis Gram Stain No WBCs or organisms seen Susceptibility Staphylococcus epidermidis GREGORY Clindamycin Susceptible Inducible Clindamycin Resistance Negative Oxacillin Resistant Tetracycline Susceptible Trimethoprim + Sulfamethoxazole Susceptible Vancomycin Susceptible Susceptibility Comments Staphylococcus epidermidis This isolate does not demonstrate inducible clindamycin resistance in vitro. Fungus Culture - Tissue, Back, Lower [[id number]] Collected: 04/29/201914 Lab Status: Preliminary result Specimen: Tissue from Back, Lower Updated: 05/06/201999 Fungus Culture No fungus isolated at 1 week AFB Culture - Tissue, Back, Lower [[id number]] Collected: 04/29/201914 Lab Status: Preliminary result Specimen: Tissue from Back, Lower Updated: 05/06/201999 AFB Culture No AFB isolated at 1 week AFB Stain No acid fast bacilli seen on concentrated smear Anaerobic Culture - Tissue, Back, Lower [[id number]] Collected: 04/29/201914 Lab Status: Final result Specimen: Tissue from Back, Lower Updated: 05/04/20857 Anaerobic Culture No anaerobes isolated at 5 days Anaerobic Culture - Wound, Spine, Lumbar [[id number]] Collected: 04/29/201842 Lab Status: Final result Specimen: Wound from Spine, Lumbar Updated: 05/04/20857 Anaerobic Culture No anaerobes isolated at 5 days Blood Culture - Blood, Arm, Right [[id number]] Collected: 04/28/20 0650 Lab Status: Final result Specimen: Blood from Arm, Right Updated: 05/03/20 0800 Blood Culture No growth at 5 days Blood Culture - Blood, Wrist, Right [[id number]] Collected: 04/28/20 0701 Lab Status: Final result Specimen: Blood from Wrist, Right Updated: 05/03/20 0800 Blood Culture No growth at 5 days Tissue / Bone Culture - Tissue, Back, Lower [[id number]] Collected: 04/29/20 1915 Lab Status: Final result Specimen: Tissue from Back, Lower Updated: 05/02/20 0857 Tissue Culture No growth at 3 days Gram Stain Rare (1+) WBCs seen No organisms seen MRSA Screen, PCR (Inpatient) - Swab, Nares [[id number]] (Normal) Collected: 04/29/20 0150 Lab Status: Final result Specimen: Swab from Nares Updated: 04/29/20 0912 MRSA PCR Negative Narrative: MRSA Negative COVID PRE-OP / PRE-PROCEDURE SCREENING ORDER (NO ISOLATION) - Swab, Nasopharynx [[id number]] (Normal) Collected: 04/28/20 1505 Lab Status: Final result Specimen: Swab from Nasopharynx Updated: 04/28/20 1644 Narrative: The following orders were created for panel order COVID PRE-OP / PRE-PROCEDURE SCREENING ORDER (NO ISOLATION) - Swab, Nasopharynx. Procedure Abnormality Status --------- ------ Respiratory Panel PCR w/...[[id number]] Normal Final result Please view results for these tests on the individual orders. 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 Swab in UTM/VTM, 3-4 HR TAT - Swab, Nasopharynx [[id number]] (Normal) Collected: 04/28/20 1505 Lab Status: Final result Specimen: Swab from Nasopharynx Updated: 04/28/20 1644 ADENOVIRUS, PCR Not Detected Coronavirus 229E Not Detected Coronavirus HKU1 Not Detected Coronavirus NL63 Not Detected Coronavirus OC43 Not Detected COVID19 Not Detected Human Metapneumovirus Not Detected Human Rhinovirus/Enterovirus Not Detected Influenza A PCR Not Detected Influenza A H1 Not Detected Influenza A H1 2008 PCR Not Detected Influenza A H3 Not Detected Influenza B PCR Not Detected Parainfluenza Virus 1 Not Detected Parainfluenza Virus 2 Not Detected Parainfluenza Virus 3 Not Detected Parainfluenza Virus 4 Not Detected RSV, PCR Not Detected Bordetella pertussis pcr Not Detected Bordetella parapertussis PCR Not Detected Chlamydophila pneumoniae PCR Not Detected Mycoplasma pneumo by PCR Not Detected Narrative: Fact sheet for providers: https://docs.[employer]/wp-content/uploads/NRR6288-7613-VJ9.1-EUA-Provi wff-Clyf-Gjjgi-3.pdf Fact sheet for patients: https://docs.[employer]/wp-content/uploads/HWQ6708-1507-UC7.7-RCV-Xbatdm i-Xjis-Grvlf-1.pdf Imaging Results (Last 24 Hours) No results found for the last 24 hours. I have reviewed the medications: Scheduled Meds:carBAMazepine, 200 mg, Oral, Nightly cycloSPORINE modified, 50 mg, Oral, BID docusate sodium, 100 mg, Oral, BID entecavir, 0.5 mg, Oral, Weekly epoetin giancarlo/giancarlo-epbx, 20,000 Units, Subcutaneous, 3x Weekly famotidine, 10 mg, Oral, Daily hydrALAZINE, 100 mg, Oral, TID insulin detemir, 15 Units, Subcutaneous, Nightly insulin lispro, 0-9 Units, Subcutaneous, TID AC lisinopril, 10 mg, Oral, Q24H metoprolol tartrate, 100 mg, Oral, Q8H mycophenolate, 250 mg, Oral, Daily mycophenolate, 250 mg, Oral, Nightly NIFEdipine CC, 90 mg, Oral, BID oxyCODONE, 10 mg, Oral, Q6H sodium chloride, 10 mL, Intravenous, Q12H sodium chloride, 3 mL, Intravenous, Q12H vancomycin (dosing per levels), , Does not apply, Daily Continuous Infusions:Pharmacy to dose vancomycin, sodium chloride, 9 mL/hr, Last Rate: 9 mL/hr (04/29/20 1608) PRN Meds:.??? acetaminophen OR acetaminophen OR acetaminophen ??? acetaminophen ??? calcium carbonate EX ??? dextrose ??? dextrose ??? glucagon (human recombinant) ??? HYDROmorphone ??? labetalol ??? [DISCONTINUED] HYDROmorphone AND naloxone ??? ondansetron ??? Pharmacy to dose vancomycin ??? sodium chloride ??? sodium chloride ??? temazepam ??? terazosin Assessment/Plan Assessment & Plan Active Hospital Problems Diagnosis POA ??? Sepsis (CMS/HCC) [A41.9] Yes ??? KIM (nonalcoholic steatohepatitis) [K75.81] Unknown ??? History of liver transplant (CMS/HCC) [Z94.4] Not Applicable ??? Immunosuppression (CMS/HCC) [D89.9] Unknown ??? Type 2 diabetes mellitus (CMS/HCC) [E11.9] Unknown ??? Altered mental state [R41.82] Unknown ??? ESRD (end stage renal disease) (CMS/HCC) [N18.6] Unknown ??? Hyponatremia [E87.1] Unknown ??? Discitis [M46.40] Unknown ??? 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] Unknown ??? Leukocytosis [D72.829] Unknown Resolved Hospital Problems No resolved problems to display. Brief Hospital Course to date: Leoncio Rollins is a 45 y.o. male with history of liver transplant 2018 secondary to KIM, ESRD on home dialysis 5 days per week, DM who presents with 1 week of back pain, fever and AMS. Found to havediscitis and epidural abscess on imaging. Altered mental status with diffuse tremors/myoclonus and tachycardia - suspect baclofen toxicity, now discontinued - neurontin held too - normal ammonia level (18) today - minimize narcotics Severe sepsis (fever, confusion, leukocytosis, lactic acidosis) in setting of immunosuppression Discitis Epidural abscess - MRI L5/S1 with osteomyelitis/discitis and fluid collection concerning for epidural abscess - BCx negative. Wound cx CoNS -Respiratory viral panel negative - MRSA PCR neg -Neurosurgery consulted. 04/29 L5 laminectomy, epidural abscess I and D. - Continue vancomycin, case management working on home infusion options. - Fever (101) overnight noted HTN uncontrolled - increased metoprolol to TID, continue hydralazine, nifedipine and lisinopril Acute anemia - heme pos stool and 'melena' but no fall in hgb with this - 2u in HD Monday - EGD 05/04 near normal - stop PPI and return CellCept dosing to his usual. - follow. Epo per nephrology Severe constip - resolved w aggressive mgmt Metabolic encephalopathy waxes/wanes Now complicated by acute change (suspected baclofen effect) - sepsis, uremia, narcotics - Reduced gabapentin dose - KASPR noted gabapentin, benzo. . Liver transplant on chronic immunosuppression ([facility]) - history of transplant at in 2018 for KIM - Will continue cyclosporine and cellcept -- patient's to bring in patient's entecavir - GI and ID consulted ; GI recommends continuing immunosuppressives ?? ESRD Uremia Hyponatremia - Currently on home dialysis 5 days per week - Nephrology following - epo ?? DM on NPH bid at home - continue levemir/SSI ?? Acute pain from lumbar infxn - pt denies chronic opioid use - added scheduled oxycodone - but will need to wean off - decreased prn dilaudid to 0.25 - baclofen attemtped by NSGY - stopping due to tremors/confusion DVT prophylaxis: SCDs - I strongly urged the patient to mobilize (ie get up in the chair, work withPT) not only to help strength conditioning, but also to help prevent blood clots. He declined to work with therapy today, but says he can walk and denies lower extremity weakness. ?? Disposition: I expect the patient to be discharged TBD. CODE STATUS: Code Status and Medical Interventions: Ordered at: 04/28/20 1125 Code Status: CPR Medical Interventions (Level of Support Prior to Arrest): Full * Marilee De La Cruz RN - 05/07/2020 4:47 PM EDT Continued Stay Note KALEB Robertson Patient Name: Leoncio Rollins Today's Date: 05/07/2020 Admit Date: 04/28/2020 Discharge Plan Row Name 05/07/20 1642 Plan Plan TBD Plan Comments Case mgt f/u. I spoke with Mr Eh and at bedside. Discussed home IV antibiotics. He currently does his own home hemodialysis. I spoke with an RN at [facility] dialysis clinic in [facility] ([facility]), she was unsure if he could self administer IV antibiotics through his port at home, she will discuss with supervisor grain and yeast plants of clinic and let us know.He could resume going to dialysis clinic if chair time could be arranged,but he prefers not to do this.Per PT notes,he is still unable to stand. Case mgt will follow. Discharge Codes No documentation. Marilee De La Cruz RN * Kody Wong MD - 05/07/2020 2:14 PM EDT LOS: 9 days Patient Care Team: Edgar Fournier MD as PCP - General (Family Medicine) Reason For Visit: F/U ESRD Subjective Review of Systems: Continue to have mild back pain patient denies shortness of breath, chest pain, dysuria, hematuria,nausea, vomiting. Objective carBAMazepine, 200 mg, Oral, Nightly cycloSPORINE modified, 50 mg, Oral, BID docusate sodium, 100 mg, Oral, BID entecavir, 0.5 mg, Oral, Weekly epoetin giancarlo/giancarlo-epbx, 20,000 Units, Subcutaneous, 3x Weekly famotidine, 10 mg, Oral, Daily hydrALAZINE, 100 mg, Oral, TID insulin detemir, 15 Units, Subcutaneous, Nightly insulin lispro, 0-9 Units, Subcutaneous, TID AC lisinopril, 10 mg, Oral, Q24H metoprolol tartrate, 100 mg, Oral, Q8H mycophenolate, 250 mg, Oral, Daily mycophenolate, 250 mg, Oral, Nightly NIFEdipine CC, 90 mg, Oral, BID oxyCODONE, 10 mg, Oral, Q6H sodium chloride, 10 mL, Intravenous, Q12H sodium chloride, 3 mL, Intravenous, Q12H vancomycin (dosing per levels), , Does not apply, Daily Pharmacy to dose vancomycin, sodium chloride, 9 mL/hr, Last Rate: 9 mL/hr (04/29/20 1608) Vital Signs: Blood pressure 131/68, pulse 89, temperature 98.2 ??F (36.8 ??C), temperature source Oral, resp. rate 16, height 170.2 cm (67 ), weight 122 kg (268 lb), SpO2 91 %. Flowsheet Rows First Filed Value Admission Height 170.2 cm (67 ) Documented at 04/27/2020 2355 Admission Weight 125 kg (275 lb) Documented at 04/27/2020 2355 05/06 07 - 05/07 07 In: 925 [P.O.:600; I.V.:325] Out: 2250 Physical Exam: General Appearance: Alert, oriented, no obvious distress. Eyes: PER, EOMI. Neck: Supple no JVD. Lungs: Clear auscultation, no rales rhonchi's, equal chest movement, nonlabored. Heart: No gallop, murmur, rub, RRR. Abdomen: Soft, nontender, positive bowel sounds, no organomegaly. Extremities: No edema, no cyanosis. Neuro: No focal deficit, moving all extremities, alert oriented X 3 Skin: No rash, Warm and dry. Left upper arm functional AVF Radiology: Labs: Results from last 7 days Lab Units 05/07/20 0738 05/05/20 1142 05/04/20 0802 WBC 10*3/mm3 9.30 10.91* 11.93* HEMOGLOBIN g/dL 7.9* 8.0* 7.5* HEMATOCRIT % 25.3* 26.8* 24.2* PLATELETS 10*3/mm3 478* 460* 433 Results from last 7 days Lab Units 05/07/20 0738 05/04/20 1319 05/04/20 0802 05/01/20 0907 SODIUM mmol/L 133* -- 134* 134* POTASSIUM mmol/L 3.7 3.3* 3.8 4.1 CHLORIDE mmol/L 96* -- 96* 95* CO2 mmol/L 21.0* -- 18.0* 20.0* BUN mg/dL 39* -- 67* 81* CREATININE mg/dL 7.56* -- 11.30* 10.03* CALCIUM mg/dL 8.9 -- 9.1 8.6 MAGNESIUM mg/dL -- -- 2.4 -- ALBUMIN g/dL 3.00* -- -- -- Results from last 7 days Lab Units 05/07/20 0738 GLUCOSE mg/dL 140* Results from last 7 days Lab Units 05/07/20 0738 ALK PHOS U/L 66 BILIRUBIN mg/dL <0.2 ALT (SGPT) U/L 14 AST (SGOT) U/L 13 Assessment Impression: 1- ESRD. Home dialysis 5 times per week. On MWF schedule while in patient. 2- Anemia 3- AMS 4- Lumbar spine discitis Osteomyelitis with epidural abscess s/p I&D 5- Hx of liver transplant on immunosuppression 6- Mild hyponatremia 7. KIM: History of liver transplant, on immunosuppressive medication Plan: -Plan for dialysis tomorrow. Avoid any PICC line. Arrangement for outpatient antibiotic with the dialysis nurses. Patient can also go on inpatient dialysis at his previous unit. - Epo with HD - Gastroenterology managing Immunosuppression. Will recommend to hold Cellcept for active infectionfor 4 weeks. - Continue with CSA -recheck level - goal 60 -120 - Renal diet. - Avoid Nephrotoxic agents - Electrolytes will be corrected with HD. Kody Wong MD 05/07/20 14:14 EDT * Alverto Ferrera MD - 05/06/2020 8:50 PM EDT Images from the original note were not included. [facility] Medicine Services PROGRESS NOTE Patient Name: Leoncio Rollins : 1975 Date of Admission: 04/28/2020 Primary Care Physician: Edgar Fournier MD Subjective Subjective CC: Back pain HPI: Still having back pain. Fair appetite, eating lunch, says he feels weak in general Review of Systems Gen- No fevers, chills CV- No chest pain, palpitations Resp- No cough, dyspnea GI- No N/V/D, abd pain Objective Objective Vital Signs: Temp: [97.6 ??F (36.4 ??C)-101 ??F (38.3 ??C)] 99.4 ??F (37.4 ??C) Heart Rate: [74-120] 99 Resp: [16-18] 16 BP: (110-192)/(75-124) 163/96 Physical Exam: Constitutional - no acute distress, nontoxic, in bed HEENT-NCAT, mucous membranes moist CV-RRR, S1 S2 normal, no m/r/g Resp-CTAB, no wheezes, rhonchi or rales Abd-soft, nontender, nondistended, normoactive bowel sounds Ext-+ LE edema bilaterally Neuro-alert with some mild confusion, speech clear, moves all extremities Psych-normal affect Skin- No rash on exposed UE or LE bilaterally Results Reviewed: Results from last 7 days Lab Units 05/05/20 1142 05/04/20 0802 05/03/20 2339 05/03/20 0955 WBC 10*3/mm3 10.91* 11.93* -- -- 9.65 HEMOGLOBIN g/dL 8.0* 7.5* 7.5* < > 7.6* HEMATOCRIT % 26.8* 24.2* 24.1* < > 24.0* PLATELETS 10*3/mm3 460* 433 -- -- 372 < > = values in this interval not displayed. Results from last 7 days Lab Units 05/04/20 1319 05/04/20 0802 05/01/20 0907 04/30/20 0759 SODIUM mmol/L -- 134* 134* 131* POTASSIUM mmol/L 3.3* 3.8 4.1 4.0 CHLORIDE mmol/L -- 96* 95* 92* CO2 mmol/L -- 18.0* 20.0* 22.0 BUN mg/dL -- 67* 81* 64* CREATININE mg/dL -- 11.30* 10.03* 7.69* GLUCOSE mg/dL -- 123* 195* 204* CALCIUM mg/dL -- 9.1 8.6 8.9 ALT (SGPT) U/L -- -- -- 26 AST (SGOT) U/L -- -- -- 16 Estimated Creatinine Clearance: 10.2 mL/min (A) (by C-G formula based on SCr of 11.3 mg/dL (H)). Microbiology Results Abnormal Procedure Component Value - Date/Time Fungus Culture - Tissue, Back, Lower [[id number]] Collected: 04/29/201914 Lab Status: Preliminary result Specimen: Tissue from Back, Lower Updated: 05/06/201999 Fungus Culture No fungus isolated at 1 week AFB Culture - Tissue, Back, Lower [[id number]] Collected: 04/29/201914 Lab Status: Preliminary result Specimen: Tissue from Back, Lower Updated: 05/06/201999 AFB Culture No AFB isolated at 1 week AFB Stain No acid fast bacilli seen on concentrated smear Wound Culture - Wound, Spine, Lumbar [[id number]] (Abnormal) Collected: 04/29/201842 Lab Status: Preliminary result Specimen: Wound from Spine, Lumbar Updated: 05/05/20 0944 Wound Culture Rare Staphylococcus, coagulase negative Gram Stain No WBCs or organisms seen Narrative: ID and sensitivity to follow Anaerobic Culture - Tissue, Back, Lower [[id number]] Collected: 04/29/201914 Lab Status: Final result Specimen: Tissue from Back, Lower Updated: 05/04/20 0858 Anaerobic Culture No anaerobes isolated at 5 days Anaerobic Culture - Wound, Spine, Lumbar [[id number]] Collected: 04/29/201842 Lab Status: Final result Specimen: Wound from Spine, Lumbar Updated: 05/04/20 0858 Anaerobic Culture No anaerobes isolated at 5 days Blood Culture - Blood, Arm, Right [[id number]] Collected: 04/28/20 0650 Lab Status: Final result Specimen: Blood from Arm, Right Updated: 05/03/20 0800 Blood Culture No growth at 5 days Blood Culture - Blood, Wrist, Right [[id number]] Collected: 04/28/20 0701 Lab Status: Final result Specimen: Blood from Wrist, Right Updated: 05/03/20 0800 Blood Culture No growth at 5 days Tissue / Bone Culture - Tissue, Back, Lower [[id number]] Collected: 04/29/201914 Lab Status: Final result Specimen: Tissue from Back, Lower Updated: 05/02/20 0857 Tissue Culture No growth at 3 days Gram Stain Rare (1+) WBCs seen No organisms seen MRSA Screen, PCR (Inpatient) - Swab, Nares [[id number]] (Normal) Collected: 04/29/20 0150 Lab Status: Final result Specimen: Swab from Nares Updated: 04/29/20 0912 MRSA PCR Negative Narrative: MRSA Negative COVID PRE-OP / PRE-PROCEDURE SCREENING ORDER (NO ISOLATION) - Swab, Nasopharynx [[id number]] (Normal) Collected: 04/28/20 1505 Lab Status: Final result Specimen: Swab from Nasopharynx Updated: 04/28/201643 Narrative: The following orders were created for panel order COVID PRE-OP / PRE-PROCEDURE SCREENING ORDER (NO ISOLATION) - Swab, Nasopharynx. Procedure Abnormality Status --------- ------ Respiratory Panel PCR w/...[[id number]] Normal Final result Please view results for these tests on the individual orders. 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 Swab in UTM/VTM, 3-4 HR TAT - Swab, Nasopharynx [[id number]] (Normal) Collected: 04/28/20 1505 Lab Status: Final result Specimen: Swab from Nasopharynx Updated: 04/28/201643 ADENOVIRUS, PCR Not Detected Coronavirus 229E Not Detected Coronavirus HKU1 Not Detected Coronavirus NL63 Not Detected Coronavirus OC43 Not Detected COVID19 Not Detected Human Metapneumovirus Not Detected Human Rhinovirus/Enterovirus Not Detected Influenza A PCR Not Detected Influenza A H1 Not Detected Influenza A H1 2009 PCR Not Detected Influenza A H3 Not Detected Influenza B PCR Not Detected Parainfluenza Virus 1 Not Detected Parainfluenza Virus 2 Not Detected Parainfluenza Virus 3 Not Detected Parainfluenza Virus 4 Not Detected RSV, PCR Not Detected Bordetella pertussis pcr Not Detected Bordetella parapertussis PCR Not Detected Chlamydophila pneumoniae PCR Not Detected Mycoplasma pneumo by PCR Not Detected Narrative: Fact sheet for providers: https://docs.[employer]/wp-content/uploads/FPM6651-2121-AI1.1-EUA-Provi iud-Ofwx-Gnkut-3.pdf Fact sheet for patients: https://docs.[employer]/wp-content/uploads/GWX9952-5070-VS1.8-MDY-Vagcky f-Cwap-Bzoyv-1.pdf Imaging Results (Last 24 Hours) No results found for the last 24 hours. I have reviewed the medications: Scheduled Meds:carBAMazepine, 200 mg, Oral, Nightly cefTRIAXone, 2 g, Intravenous, Q24H cycloSPORINE modified, 50 mg, Oral, BID docusate sodium, 100 mg, Oral, BID entecavir, 0.5 mg, Oral, Weekly epoetin giancarlo/giancarlo-epbx, 20,000 Units, Subcutaneous, 3x Weekly famotidine, 10 mg, Oral, Daily hydrALAZINE, 100 mg, Oral, TID insulin detemir, 15 Units, Subcutaneous, Nightly insulin lispro, 0-9 Units, Subcutaneous, TID AC lisinopril, 10 mg, Oral, Q24H metoprolol tartrate, 100 mg, Oral, Q8H mycophenolate, 250 mg, Oral, Daily mycophenolate, 250 mg, Oral, Nightly NIFEdipine CC, 90 mg, Oral, BID oxyCODONE, 10 mg, Oral, Q6H sodium chloride, 10 mL, Intravenous, Q12H sodium chloride, 3 mL, Intravenous, Q12H vancomycin (dosing per levels), , Does not apply, Daily Continuous Infusions:Pharmacy to dose vancomycin, sodium chloride, 9 mL/hr, Last Rate: 9 mL/hr (04/29/20 1608) PRN Meds:.??? acetaminophen OR acetaminophen OR acetaminophen ??? acetaminophen ??? albumin human ??? calcium carbonate EX ??? dextrose ??? dextrose ??? glucagon (human recombinant) ??? HYDROmorphone ??? labetalol ??? [DISCONTINUED] HYDROmorphone AND naloxone ??? ondansetron ??? Pharmacy to dose vancomycin ??? sodium chloride ??? sodium chloride ??? temazepam ??? terazosin Assessment/Plan Assessment & Plan Active Hospital Problems Diagnosis POA ??? Sepsis (CMS/HCC) [A41.9] Yes ??? KIM (nonalcoholic steatohepatitis) [K75.81] Unknown ??? History of liver transplant (CMS/HCC) [Z94.4] Not Applicable ??? Immunosuppression (CMS/HCC) [D89.9] Unknown ??? Type 2 diabetes mellitus (CMS/HCC) [E11.9] Unknown ??? Altered mental state [R41.82] Unknown ??? ESRD (end stage renal disease) (CMS/HCC) [N18.6] Unknown ??? Hyponatremia [E87.1] Unknown ??? Discitis [M46.40] Unknown ??? 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] Unknown ??? Leukocytosis [D72.829] Unknown Resolved Hospital Problems No resolved problems to display. Brief Hospital Course to date: Leoncio Rollins is a 45 y.o. male with history of liver transplant 2018 secondary to KIM, ESRD on home dialysis 5 days per week, DM who presents with 1 week of back pain, fever and AMS. Found to havediscitis and epidural abscess on imaging. Altered mental status with diffuse tremors/myoclonus and tachycardia - suspect baclofen toxicity, now discontinued - neurontin held too - check ammonia level am. - minimize narcotics Severe sepsis (fever, confusion, leukocytosis, lactic acidosis) in setting of immunosuppression Discitis Epidural abscess - MRI L5/S1 with osteomyelitis/discitis and fluid collection concerning for epidural abscess - BCx negative. Wound cx CoNS -Respiratory viral panel negative - MRSA PCR neg -Neurosurgery consulted. 04/29 L5 laminectomy, epidural abscess I and D. - Continue vancomycin and CTX , LIDC appreciated. HTN uncontrolled - pain may be contributing. - increased metoprolol to TID - HD yest did not help; current baclofen-induced neuromusc issues may be contributing. Discussed w Renal Acute anemia - heme pos stool and 'melena' but no fall in hgb with this - 2u in HD Monday - EGD 05/04 near normal - stop PPI and return CellCept dosing to his usual. - follow. Epo. Severe constip - resolved w aggressive mgmt Metabolic encephalopathy waxes/wanes Now complicated by acute change (suspected baclofen effect) - sepsis, uremia, narcotics - Reduced gabapentin dose - KASPR noted gabapentin, benzo. . Liver transplant on chronic immunosuppression ([facility]) - history of transplant at in 2018 for KIM - Will continue cyclosporine and cellcept -- patient's to bring in patient's entecavir - GI and ID consulted ; GI recommends continuing immunosuppressives - check cmp and inr am ?? ESRD Uremia Hyponatremia - Currently on home dialysis 5 days per week - Nephrology following - epo ?? DM on NPH bid at home - SSI; adjust PRN - add levemir qhs yesterday ?? Acute pain from lumbar infxn - pt denies chronic opioid use - added scheduled oxycodone - decreased prn dilaudid to .5mg - baclofen attemtped by NSGY - stopping due to tremors/confusion DVT prophylaxis: SCDs ?? Disposition: I expect the patient to be discharged TBD. CODE STATUS: Code Status and Medical Interventions: Ordered at: 04/28/20 1125 Code Status: CPR Medical Interventions (Level of Support Prior to Arrest): Full * Cayetano Rodriguez MD - 05/06/2020 2:00 PM EDT [facility] Progress Note Date of Admission: 04/28/2020 Antibiotics: Vancomycin and ceftriaxone CC: Chief Complaint Patient presents with ??? Back Pain ??? Multiple complaints S: Patient with no fever still with confusion and back pain getting hemodialysis today and hemodynamically stable. O: BP (!) 192/93 (BP Location: Right arm, Patient Position: Lying) Pulse 115 Temp 97.6 ??F (36.4 ??C) (Axillary) Resp 18 Ht 170.2 cm (67 ) Wt 122 kg (268 lb) SpO2 98% BMI 41.97 kg/m?? Temp (24hrs), Av.5 ??F (36.9 ??C), Min:97.6 ??F (36.4 ??C), Max:99.1 ??F (37.3 ??C) PE: GENERAL: lethargic in NAD. Pale appearance chronically ill-appearing, confusion HEENT: Normocephalic, atraumatic. PERRL. EOMI. No conjunctival injection. No icterus. Oropharynx clear without evidence of thrush or exudate. No evidence of peridontal disease. NECK: Supple without nuchal rigidity LYMPH: No cervical, axillary or inguinal lymphadenopathy. No neck masses HEART: RRR; No murmur, rubs, gallops. LUNGS: Clear to auscultation bilaterally without wheezing, rales, rhonchi. Normal respiratory effort. ABDOMEN: Soft, obese and distended positive bowel sounds. No rebound or guarding. EXT: No cyanosis, clubbing or edema : Normal appearing genitalia without Anders catheter. MSK: decreased ROM of l spine SKIN: Warm and dry without cutaneous eruptions. NEURO: confused and tremor. Lethargy. PSYCHIATRIC: Poor insight and judgement. Cooperative with PE ?? Laboratory Data Results from last 7 days Lab Units 05/05/20 1142 05/04/20 0802 05/03/20 2339 05/03/20 0955 WBC 10*3/mm3 10.91* 11.93* -- -- 9.65 HEMOGLOBIN g/dL 8.0* 7.5* 7.5* < > 7.6* HEMATOCRIT % 26.8* 24.2* 24.1* < > 24.0* PLATELETS 10*3/mm3 460* 433 -- -- 372 < > = values in this interval not displayed. Results from last 7 days Lab Units 05/04/20 1319 05/04/20 0802 SODIUM mmol/L -- 134* POTASSIUM mmol/L 3.3* 3.8 CHLORIDE mmol/L -- 96* CO2 mmol/L -- 18.0* BUN mg/dL -- 67* CREATININE mg/dL -- 11.30* GLUCOSE mg/dL -- 123* CALCIUM mg/dL -- 9.1 Results from last 7 days Lab Units 04/30/20 0759 ALK PHOS U/L 71 BILIRUBIN mg/dL 0.2 ALT (SGPT) U/L 26 AST (SGOT) U/L 16 Results from last 7 days Lab Units 05/06/20 0557 SED RATE mm/hr 44* Results from last 7 days Lab Units 05/06/20 0557 CRP mg/dL 18.73* Estimated Creatinine Clearance: 10.2 mL/min (A) (by C-G formula based on SCr of 11.3 mg/dL (H)). Microbiology: Blood cultures negative to date Wound cultures with coag-negative staph Radiology: Imaging Results (Last 24 Hours) No results found for the last 24 hours. 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 ASSESSMENT: Patient is a 45-year-old with Kim with end-stage liver disease underwent transplant on immunosuppressive therapy on home hemodialysis 5 days/week with end-stage renal disease recent right chest walldialysis cath removed with some erythema this was followed by increasing lower back pain which progressed to fevers chills difficulty with ambulation. He was seen at several ERs including [facility] given Keflex with some improvement. Now admitted with fevers chills leukocytosis MRI revealing lumbar spine discitis osteomyelitis and fluid seen on MRI and epidural space of L5-S1 but no overt neurologic deficits today. ?? Get old records from [facility], it appears no blood cultures were obtained at any ER visit and had partially treated case with Keflex with some improvement. Spine culture with coag negative staph will continue vancomycin and ceftriaxone 2 g IV daily. Continue long-term antibiotics getting hemodialysis today concern for baclofen toxicity expect slowrecovery. PLAN: Continue vancomycin dosed by pharmacy on hemodialysis Cont ceftriaxone in case this is a methicillin susceptible coag negative staph such as staph lugdunensis Still with pain and confusion EGD with no obvious bleeding source Cayetano Rodriguez MD 05/06/2020 * Karli Camp RPH - 05/06/2020 11:27 AM EDT Images from the original note were not included. Pharmacy Consult-Vancomycin Dosing Leoncio Rollins is a 45 y.o. male receiving vancomycin therapy. Indication: Sepsis secondary to spine discitis/osteomyelitis Consulting Provider: Hospitalist ID Consult: Cayetano Rodriguez MD Goal trough: 15-20mcg/ml Current Antimicrobial Therapy Anti-Infectives (From admission, onward) Ordered Dose/Rate Route Frequency Start Stop 05/06/20 1112 vancomycin in dextrose 5% 150 mL (VANCOCIN) IVPB 750 mg Ordering Provider: Karli Camp RPH 750 mg over 60 Minutes Intravenous Once 05/06/20 1600 05/05/20 1044 Pharmacy to dose vancomycin Ordering Provider: Karli Camp RPH Does not apply Continuous PRN 05/05/20 1044 05/12/20 1043 05/04/20 1324 vancomycin in dextrose 5% 150 mL (VANCOCIN) IVPB 750 mg Ordering Provider: Vivek Ramos RPH 750 mg over 60 Minutes Intravenous Once 05/04/20 1600 05/04/20 1608 05/01/20 1018 cefTRIAXone (ROCEPHIN) 2 g/100 mL 0.9% NS IVPB (MBP) Marilin Conn reviewed the order on 05/03/20 1242. Ordering Provider: Dewey Betancourt MD 2 g over 30 Minutes Intravenous Every 24 Hours 05/01/20199905/08/20 19505/01/20 1140 vancomycin in dextrose 5% 150 mL (VANCOCIN) IVPB 750 mg Ordering Provider: Germán Resendiz RPH 750 mg over 60 Minutes Intravenous Once 05/01/20 1230 05/01/20 1704 04/29/20 1119 vancomycin (VANCOCIN) in iso-osmotic dextrose IVPB 1 g (premix) 200 mL Ordering Provider: Gemrán Resendiz RPH 1,000 mg over 60 Minutes Intravenous Once 04/29/20 1600 04/29/20 1750 04/28/20 1131 entecavir (BARACLUDE) tablet 0.5 mg (PATIENT SUPPLIED MED) Ordering Provider: Dewey Betancourt MD 0.5 mg Oral Weekly 04/28/20 2130 04/28/20 1915 vancomycin (dosing per levels) Karli Camp RPH reviewed the order on 05/05/20 1041. Ordering Provider: Karli Camp RPH Does not apply Daily 04/28/20201405/08/20 1040 04/28/20 0650 vancomycin 2500 mg/500 mL 0.9% NS IVPB ([facility]) Ordering Provider: Kym Garcia, DO 20 mg/kg ?? 125 kg over 150 Minutes Intravenous Once 04/28/20 0652 04/28/20 1256 04/28/20 0650 cefTRIAXone (ROCEPHIN) 1 g/100 mL 0.9% NS (MBP) Ordering Provider: Kym Garcia, DO 1 g over 30 Minutes Intravenous Once 04/28/20 0652 04/28/20 0859 Allergies Allergies as of 04/27/2020 (Not on File) Labs Results from last 7 days Lab Units 05/04/20 0802 05/01/20 0907 04/30/20 0759 BUN mg/dL 67* 81* 64* CREATININE mg/dL 11.30* 10.03* 7.69* Results from last 7 days Lab Units 05/05/20 1142 05/04/20 0802 05/03/20 0955 WBC 10*3/mm3 10.91* 11.93* 9.65 Evaluation of Dosing Last Dose Received in the ED/Outside Facility: 2500mg in ED 04/28 Is Patient on Dialysis or 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 Ht - 170.2 cm (67 ) Wt - 122 kg (268 lb) Estimated Creatinine Clearance: 10.2 mL/min (A) (by C-G formula based on SCr of 11.3 mg/dL (H)). Intake & Output (last 3 days) 05/03 701 - 05/04 0700 05/04 07 - 05/05 0700 05/05 07 - 05/06 0700 05/06 07 - 05/07 0700 P.O. 600 250 I.V. (mL/kg) 100 (0.8) Total Intake(mL/kg) 600 (4.9) 100 (0.8) 250 (2) Urine (mL/kg/hr) 100 (0) 100 (0) Stool 0 Total Output 100 100 Net +500 0 +250 Urine Unmeasured Occurrence 1 x Stool Unmeasured Occurrence 1 x 1 x 2 x Microbiology and Radiology Microbiology Results (last 10 days) Procedure Component Value - Date/Time Anaerobic Culture - Tissue, Back, Lower [[id number]] Collected: 04/29/201914 Lab Status: Final result Specimen: Tissue from Back, Lower Updated: 05/04/20 0858 Anaerobic Culture No anaerobes isolated at 5 days Fungus Culture - Tissue, Back, Lower [[id number]] Collected: 04/29/201914 Lab Status: Preliminary result Specimen: Tissue from Back, Lower Updated: 05/04/201999 Fungus Culture No fungus isolated at less than 1 week Tissue / Bone Culture - Tissue, Back, Lower [[id number]] Collected: 04/29/201914 Lab Status: Final result Specimen: Tissue from Back, Lower Updated: 05/02/20 0857 Tissue Culture No growth at 3 days Gram Stain Rare (1+) WBCs seen No organisms seen AFB Culture - Tissue, Back, Lower [[id number]] Collected: 04/29/20 1915 Lab Status: Preliminary result Specimen: Tissue from Back, Lower Updated: 05/04/201999 AFB Culture No AFB isolated at less than 1 week AFB Stain No acid fast bacilli seen on concentrated smear Wound Culture - Wound, Spine, Lumbar [[id number]] (Abnormal) Collected: 04/29/20 184 Lab Status: Preliminary result Specimen: Wound from Spine, Lumbar Updated: 05/05/20 0944 Wound Culture Rare Staphylococcus, coagulase negative Gram Stain No WBCs or organisms seen Narrative: ID and sensitivity to follow Anaerobic Culture - Wound, Spine, Lumbar [[id number]] Collected: 04/29/201842 Lab Status: Final result Specimen: Wound from Spine, Lumbar Updated: 05/04/20 0858 Anaerobic Culture No anaerobes isolated at 5 days MRSA Screen, PCR (Inpatient) - Swab, Nares [[id number]] (Normal) Collected: 04/29/20 0150 Lab Status: Final result Specimen: Swab from Nares Updated: 04/29/20 0912 MRSA PCR Negative Narrative: MRSA Negative COVID PRE-OP / PRE-PROCEDURE SCREENING ORDER (NO ISOLATION) - Swab, Nasopharynx [[id number]] (Normal) Collected: 04/28/20 1505 Lab Status: Final result Specimen: Swab from Nasopharynx Updated: 04/28/20 1644 Narrative: The following orders were created for panel order COVID PRE-OP / PRE-PROCEDURE SCREENING ORDER (NO ISOLATION) - Swab, Nasopharynx. Procedure Abnormality Status --------- ------ Respiratory Panel PCR w/...[[id number]] Normal Final result Please view results for these tests on the individual orders. 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 Swab in UTM/VTM, 3-4 HR TAT - Swab, Nasopharynx [[id number]] (Normal) Collected: 04/28/20 1505 Lab Status: Final result Specimen: Swab from Nasopharynx Updated: 04/28/20 1644 ADENOVIRUS, PCR Not Detected Coronavirus 229E Not Detected Coronavirus HKU1 Not Detected Coronavirus NL63 Not Detected Coronavirus OC43 Not Detected COVID19 Not Detected Human Metapneumovirus Not Detected Human Rhinovirus/Enterovirus Not Detected Influenza A PCR Not Detected Influenza A H1 Not Detected Influenza A H1 2008 PCR Not Detected Influenza A H3 Not Detected Influenza B PCR Not Detected Parainfluenza Virus 1 Not Detected Parainfluenza Virus 2 Not Detected Parainfluenza Virus 3 Not Detected Parainfluenza Virus 4 Not Detected RSV, PCR Not Detected Bordetella pertussis pcr Not Detected Bordetella parapertussis PCR Not Detected Chlamydophila pneumoniae PCR Not Detected Mycoplasma pneumo by PCR Not Detected Narrative: Fact sheet for providers: https://docs.[employer]/wp-content/uploads/TAB7629-7459-IW1.1-EUA-Provi xkc-Jviu-Shmkk-3.pdf Fact sheet for patients: https://docs.[employer]/wp-content/uploads/JMH4247-2624-NG1.6-YDO-Yhdroi o-Qgnh-Ohbpt-1.pdf Blood Culture - Blood, Wrist, Right [[id number]] Collected: 04/28/20 0701 Lab Status: Final result Specimen: Blood from Wrist, Right Updated: 05/03/20 0800 Blood Culture No growth at 5 days Blood Culture - Blood, Arm, Right [[id number]] Collected: 04/28/20 0650 Lab Status: Final result Specimen: Blood from Arm, Right Updated: 05/03/20 0800 Blood Culture No growth at 5 days Evaluation of Level Results from last 7 days Lab Units 05/06/20 0557 05/01/20 0907 VANCOMYCIN RM mcg/mL 23.20 21.60 Assessment/Plan: 1. Pharmacy to dose vancomycin for discitis/osteomyelitis. Goal trough 15-20 mcg/mL. 2. Patient currently being dosed off vancomycin levels due to unpredictable dialysis schedule. Lastdose received was vancomycin 750 mg on 05/04 following dialysis. 3. Vancomycin random today prior to dialysis resulted in 23.2 mcg/mL. Assuming an ~30% decrease in concentration post-dialysis will give vancomycin 750 mg again today following dialysis. 4. Currently no vancomycin level ordered. Consider ordering random level once date of next dialysisis determined (possibly 05/08/20) if therapy is continued to assess appropriateness of dose. 5. Pharmacy will continue to monitor renal function, cultures and sensitivities, and clinical status to adjust regimen as necessary. Karli Camp, Wilbert [employer] Electric Engine Technician 05/06/2020 11:14 EDT * Karishma Hodge MD - 05/06/2020 8:57 AM EDT LOS: 8 days Patient Care Team: Edgar Fournier MD as PCP - General (Family Medicine) Reason For Visit: F/U ESRD Subjective Patient seen on dialysis. confused. Review of Systems: Pulm: No soa CV: No CP Objective carBAMazepine, 200 mg, Oral, Nightly cefTRIAXone, 2 g, Intravenous, Q24H cycloSPORINE modified, 50 mg, Oral, BID docusate sodium, 100 mg, Oral, BID entecavir, 0.5 mg, Oral, Weekly epoetin giancarlo/giancarlo-epbx, 20,000 Units, Subcutaneous, 3x Weekly famotidine, 10 mg, Oral, Daily hydrALAZINE, 100 mg, Oral, TID insulin detemir, 15 Units, Subcutaneous, Nightly insulin lispro, 0-9 Units, Subcutaneous, TID AC lisinopril, 10 mg, Oral, Q24H metoprolol tartrate, 100 mg, Oral, Q8H mycophenolate, 250 mg, Oral, Daily mycophenolate, 250 mg, Oral, Nightly NIFEdipine CC, 90 mg, Oral, BID oxyCODONE, 10 mg, Oral, Q6H sodium chloride, 10 mL, Intravenous, Q12H sodium chloride, 3 mL, Intravenous, Q12H vancomycin (dosing per levels), , Does not apply, Daily Pharmacy to dose vancomycin, sodium chloride, 9 mL/hr, Last Rate: 9 mL/hr (04/29/20 1608) Vital Signs: Blood pressure 179/98, pulse 88, temperature 98.9 ??F (37.2 ??C), temperature source Oral, resp. rate 18, height 170.2 cm (67 ), weight 122 kg (268 lb), SpO2 98 %. Flowsheet Rows First Filed Value Admission Height 170.2 cm (67 ) Documented at 04/27/2020 2355 Admission Weight 125 kg (275 lb) Documented at 04/27/2020 2355 05/05 07 - 05/06 0700 In: 250 [P.O.:250] Out: - Physical Exam: General Appearance: NAD, alert and cooperative. Confused. Eyes: PER, conjunctivae and sclerae normal, no icterus Lungs: respirations regular and unlabored, no crepitus, clear to auscultation Heart/CV: regular rhythm & normal rate, no murmur, no gallop, no rub and no edema Abdomen: not distended, soft, non-tender, no masses, bowel sounds present Skin: No rash, Warm and dry. AVF Radiology: Labs: Results from last 7 days Lab Units 05/05/20 1142 05/04/20 0802 05/03/20 2339 05/03/20 0955 WBC 10*3/mm3 10.91* 11.93* -- -- 9.65 HEMOGLOBIN g/dL 8.0* 7.5* 7.5* < > 7.6* HEMATOCRIT % 26.8* 24.2* 24.1* < > 24.0* PLATELETS 10*3/mm3 460* 433 -- -- 372 < > = values in this interval not displayed. Results from last 7 days Lab Units 05/04/20 1319 05/04/20 0802 05/01/20 0907 04/30/20 0759 04/29/20 1533 SODIUM mmol/L -- 134* 134* 131* 132* POTASSIUM mmol/L 3.3* 3.8 4.1 4.0 4.2 CHLORIDE mmol/L -- 96* 95* 92* 95* CO2 mmol/L -- 18.0* 20.0* 22.0 19.0* BUN mg/dL -- 67* 81* 64* 48* CREATININE mg/dL -- 11.30* 10.03* 7.69* 5.03* CALCIUM mg/dL -- 9.1 8.6 8.9 9.0 PHOSPHORUS mg/dL -- -- -- 5.7* -- MAGNESIUM mg/dL -- 2.4 -- -- -- ALBUMIN g/dL -- -- -- 3.30* -- Results from last 7 days Lab Units 05/04/20 0802 GLUCOSE mg/dL 123* Results from last 7 days Lab Units 04/30/20 0759 ALK PHOS U/L 71 BILIRUBIN mg/dL 0.2 ALT (SGPT) U/L 26 AST (SGOT) U/L 16 Estimated Creatinine Clearance: 10.2 mL/min (A) (by C-G formula based on SCr of 11.3 mg/dL (H)). Assessment Sepsis (CMS/HCC) KIM (nonalcoholic steatohepatitis) History of liver transplant (CMS/HCC) Immunosuppression (CMS/HCC) Type 2 diabetes mellitus (CMS/HCC) Altered mental state ESRD (end stage renal disease) (CMS/HCC) Hyponatremia Discitis Epidural abscess Leukocytosis Impression: 1- ESRD. Home dialysis 5 times per week. On MWF schedule while in patient. 2- Anemia 3- AMS 4- Lumbar spine discitis Osteomyelitis with epidural abscess s/p I&D 5- Hx of liver transplant on immunosuppression 6- Mild hyponatremia Plan: - Patient seen on dialysis. UF as tolerated. - Epo with HD - Gastroenterology managing Immunosuppression. Will recommend to hold Cellcept for active infectionfor 4 weeks. - Continue with CSA -recheck level - goal 60 -120 - Renal diet. - Avoid Nephrotoxic agents - Electrolytes will be corrected with HD. Karishma Hodge MD 05/06/20 08:57 EDT * Cayetano Rodriguez MD - 05/05/2020 7:11 PM EDT [facility] Progress Note Date of Admission: 04/28/2020 Antibiotics: Vancomycin and ceftriaxone CC: Chief Complaint Patient presents with ??? Back Pain ??? Multiple complaints S: Patient with increased confusion and lethargy concern for baclofen toxicity. No fevers decreasedpain today but less responsive. O: BP 142/87 Pulse 81 Temp 98.2 ??F (36.8 ??C) (Axillary) Resp 18 Ht 170.2 cm (67 ) Wt 122 kg (268 lb) SpO2 96% BMI 41.97 kg/m?? Temp (24hrs), Av.9 ??F (37.2 ??C), Min:98.2 ??F (36.8 ??C), Max:99.7 ??F (37.6 ??C) PE: GENERAL: lethargic in NAD. Pale appearance chronically ill-appearing, confusion HEENT: Normocephalic, atraumatic. PERRL. EOMI. No conjunctival injection. No icterus. Oropharynx clear without evidence of thrush or exudate. No evidence of peridontal disease. NECK: Supple without nuchal rigidity LYMPH: No cervical, axillary or inguinal lymphadenopathy. No neck masses HEART: RRR; No murmur, rubs, gallops. LUNGS: Clear to auscultation bilaterally without wheezing, rales, rhonchi. Normal respiratory effort. ABDOMEN: Soft, obese and distended positive bowel sounds. No rebound or guarding. EXT: No cyanosis, clubbing or edema : Normal appearing genitalia without Anders catheter. MSK: decreased ROM of l spine SKIN: Warm and dry without cutaneous eruptions. NEURO: confused and tremor. Lethargy. PSYCHIATRIC: Poor insight and judgement. Cooperative with PE ?? Laboratory Data Results from last 7 days Lab Units 05/05/20 1142 05/04/20 0802 05/03/20 2339 05/03/20 0955 WBC 10*3/mm3 10.91* 11.93* -- -- 9.65 HEMOGLOBIN g/dL 8.0* 7.5* 7.5* < > 7.6* HEMATOCRIT % 26.8* 24.2* 24.1* < > 24.0* PLATELETS 10*3/mm3 460* 433 -- -- 372 < > = values in this interval not displayed. Results from last 7 days Lab Units 05/04/20 1319 05/04/20 0802 SODIUM mmol/L -- 134* POTASSIUM mmol/L 3.3* 3.8 CHLORIDE mmol/L -- 96* CO2 mmol/L -- 18.0* BUN mg/dL -- 67* CREATININE mg/dL -- 11.30* GLUCOSE mg/dL -- 123* CALCIUM mg/dL -- 9.1 Results from last 7 days Lab Units 04/30/20 0759 ALK PHOS U/L 71 BILIRUBIN mg/dL 0.2 ALT (SGPT) U/L 26 AST (SGOT) U/L 16 Estimated Creatinine Clearance: 10.2 mL/min (A) (by C-G formula based on SCr of 11.3 mg/dL (H)). Microbiology: Blood cultures negative to date Wound cultures with coag-negative staph Radiology: Imaging Results (Last 24 Hours) No results found for the last 24 hours. 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 ASSESSMENT: Patient is a 45-year-old with Kim with end-stage liver disease underwent transplant on immunosuppressive therapy on home hemodialysis 5 days/week with end-stage renal disease recent right chest walldialysis cath removed with some erythema this was followed by increasing lower back pain which progressed to fevers chills difficulty with ambulation. He was seen at several ERs including [facility] given Keflex with some improvement. Now admitted with fevers chills leukocytosis MRI revealing lumbar spine discitis osteomyelitis and fluid seen on MRI and epidural space of L5-S1 but no overt neurologic deficits today. ?? Get old records from [facility], it appears no blood cultures were obtained at any ER visit and had partially treated case with Keflex with some improvement. His white blood cell count has further decreased with vancomycin and Zosyn and now with surgical cultures with coag negative staph most likely this is a pathogen could be staph lugdunensis we will continue vancomycin and ceftriaxone 2 g IV daily. Continue long-term antibiotics getting hemodialysis tomorrow concern for baclofen toxicity and muchless responsive today. CPLAN: Continue vancomycin dosed by pharmacy on hemodialysis Cont ceftriaxone in case this is a methicillin susceptible coag negative staph such as staph lugdunensis Still with pain and confusion EGC with no obvious bleeding source possible luz on nystatin. I spent greater than 35 minutes on his case today with more than 50% of time in review of studies, discussion with pharmacy, discussion with case management, discussion with Dr. Grace and with today. Cayetano Rodriguez MD 05/05/2020 * Naomi Ham MS,RD,LD - 05/05/2020 4:39 PM EDT Adult Nutrition Assessment/PES Patient Name: Leoncio Rollins Date of : 1975 Admit Date: 04/28/2020 Assessment Date: 05/05/2020 Reason for Assessment Row Name 05/05/20 1634 Reason for Assessment Reason For Assessment -- LOS; 25 mins Diagnosis -- sepsis,KIM, AMS (metabolic encephalopathy), discitis, epidural abscess. Noted EGD= stenosis at [facility] and poss mild luz. H/o liver transplant and immunosupressed, ESRD, DM, HTN. Nutrition/Diet History Row Name 05/05/20 1638 Nutrition/Diet History Factors Affecting Nutritional Intake -- pt not coherent today. RD spoke with pt's in room and states pt likes Boost supplements and states he will drink 3x/d. Anthropometrics Row Name 05/05/20 1637 Admit Weight Admit Weight -- ht=67in, np=780cd; BMI=41.9 Nutrition Prescription Ordered Row Name 05/05/20 1637 Nutrition Prescription PO Common Modifiers Consistent Carbohydrate low fiber/residue/fat Evaluation of Received Nutrient/Fluid Intake Row Name 05/05/20 1637 PO Evaluation Number of Meals 3 % PO Intake 50 Problem/Interventions: Problem 1 Row Name 05/05/20 1638 Nutrition Diagnoses Problem 1 Problem 1 Inadequate Intake/Infusion Etiology (related to) MNT for Treatment/Condition Signs/Symptoms (evidenced by) PO Intake Percent (%) intake recorded 50 % Over number of meals 3 Intervention Goal Row Name 05/05/20 1638 Intervention Goal PO Increase intake Nutrition Intervention Row Name 05/05/[address]/Tech Action Follow Tx progress;Supplement provided Nutrition Prescription Row Name 05/05/20 1639 Nutrition Prescription PO PO Prescription Begin/change supplement Supplement Boost glucose control Supplement Frequency 3 times a day New PO Prescription Ordered? Yes Education/Evaluation Row Name 05/05/20 1638 Monitor/Evaluation Monitor Per protocol Electronically signed by: Naomi Ham MS,RD,LD 05/05/20 16:39 EDT * Hilton Hamm MD - 05/05/2020 2:15 PM EDT LOS: 7 days Patient Care Team: Edgar Fournier MD as PCP - General (Family Medicine) Reason For Visit: F/U ESRD Subjective Review of Systems: Pulm: No soa CV: No CP Objective carBAMazepine, 200 mg, Oral, Nightly cefTRIAXone, 2 g, Intravenous, Q24H cycloSPORINE modified, 50 mg, Oral, BID docusate sodium, 100 mg, Oral, BID entecavir, 0.5 mg, Oral, Weekly epoetin giancarlo/giancarlo-epbx, 20,000 Units, Subcutaneous, 3x Weekly famotidine, 10 mg, Oral, Daily gabapentin, 100 mg, Oral, Nightly hydrALAZINE, 100 mg, Oral, TID insulin detemir, 15 Units, Subcutaneous, Nightly insulin lispro, 0-9 Units, Subcutaneous, TID AC lisinopril, 10 mg, Oral, Q24H metoprolol tartrate, 100 mg, Oral, Q8H mycophenolate, 250 mg, Oral, Daily mycophenolate, 250 mg, Oral, Nightly NIFEdipine CC, 90 mg, Oral, BID oxyCODONE, 10 mg, Oral, Q6H sodium chloride, 10 mL, Intravenous, Q12H sodium chloride, 3 mL, Intravenous, Q12H vancomycin (dosing per levels), , Does not apply, Daily Pharmacy to dose vancomycin, sodium chloride, 9 mL/hr, Last Rate: 9 mL/hr (04/29/20 1608) Vital Signs: Blood pressure 153/90, pulse 92, temperature 98.6 ??F (37 ??C), temperature source Oral, resp. rate19, height 170.2 cm (67 ), weight 122 kg (268 lb), SpO2 97 %. Flowsheet Rows First Filed Value Admission Height 170.2 cm (67 ) Documented at 04/27/2020 1457 Admission Weight 125 kg (275 lb) Documented at 04/27/2020 3780 05/04 0701 - 05/05 0700 In: 100 [I.V.:100] Out: 100 [Urine:100] Physical Exam: General Appearance: NAD, alert and cooperative. CONFUSED Eyes: PER, conjunctivae and sclerae normal, no icterus Lungs: respirations regular and unlabored, no crepitus, clear to auscultation Heart/CV: regular rhythm & normal rate, no murmur, no gallop, no rub and no edema Abdomen: not distended, soft, non-tender, no masses, bowel sounds present Skin: No rash, Warm and dry. AVF Radiology: Labs: Results from last 7 days Lab Units 05/05/20 1142 05/04/20 0802 05/03/20 2339 05/03/20 0955 WBC 10*3/mm3 10.91* 11.93* -- -- 9.65 HEMOGLOBIN g/dL 8.0* 7.5* 7.5* < > 7.6* HEMATOCRIT % 26.8* 24.2* 24.1* < > 24.0* PLATELETS 10*3/mm3 460* 433 -- -- 372 < > = values in this interval not displayed. Results from last 7 days Lab Units 05/04/20 1319 05/04/20 0802 05/01/20 0907 04/30/20 0759 04/29/20 1533 04/29/20 0618 SODIUM mmol/L -- 134* 134* 131* 132* 134* POTASSIUM mmol/L 3.3* 3.8 4.1 4.0 4.2 4.1 CHLORIDE mmol/L -- 96* 95* 92* 95* 92* CO2 mmol/L -- 18.0* 20.0* 22.0 19.0* 20.0* BUN mg/dL -- 67* 81* 64* 48* 98* CREATININE mg/dL -- 11.30* 10.03* 7.69* 5.03* 10.55* CALCIUM mg/dL -- 9.1 8.6 8.9 9.0 9.1 PHOSPHORUS mg/dL -- -- -- 5.7* -- -- MAGNESIUM mg/dL -- 2.4 -- -- -- 2.3 ALBUMIN g/dL -- -- -- 3.30* -- 3.50 Results from last 7 days Lab Units 05/04/20 0802 GLUCOSE mg/dL 123* Results from last 7 days Lab Units 04/30/20 0759 ALK PHOS U/L 71 BILIRUBIN mg/dL 0.2 ALT (SGPT) U/L 26 AST (SGOT) U/L 16 Results from last 7 days Lab Units 04/29/20 0144 COLOR UA Yellow CLARITY UA Clear PH, URINE <=5.0 SPECIFIC GRAVITY, URINE 1.017 GLUCOSE UA 100 mg/dL (Trace)* KETONES UA Negative BILIRUBIN UA Negative PROTEIN UA >=300 mg/dL (3+)* BLOOD UA Negative LEUKOCYTES UA Negative NITRITE UA Negative Estimated Creatinine Clearance: 10.2 mL/min (A) (by C-G formula based on SCr of 11.3 mg/dL (H)). Assessment Sepsis (CMS/HCC) KIM (nonalcoholic steatohepatitis) History of liver transplant (CMS/HCC) Immunosuppression (CMS/HCC) Type 2 diabetes mellitus (CMS/HCC) Altered mental state ESRD (end stage renal disease) (CMS/HCC) Hyponatremia Discitis Epidural abscess Leukocytosis Impression: ESRD. ANEMIA. CONFUSION ? BACLOFEN ( DOES NOT DIALYIZE OFF ) Recommendations: HD 05/06/20. Hilton Hamm MD 05/05/20 14:15 EDT * Odette Grace MD - 05/05/2020 9:08 AM EDT Images from the original note were not included. [facility] Medicine Services PROGRESS NOTE Patient Name: Leoncio Rollins : 1975 Date of Admission: 04/28/2020 Primary Care Physician: Edgar Fournier MD Subjective Subjective CC: Back pain HPI: Acutely different this morning: Muscle jerks/tremors, seems confused, makes eye contact and follows some commands but saying little. Tachy to 120 with ongoing HTN. He endorses pain and dyspnea but his answers are delayed and reliability is unclear. Review of Systems As above. Staff reports that he was behaviorally different from his norm overnight though they don't have details. Objective Objective Vital Signs: Temp: [97.6 ??F (36.4 ??C)-99.7 ??F (37.6 ??C)] 98.6 ??F (37 ??C) Heart Rate: [91-129] 92 Resp: [16-18] 17 BP: (111-201)/(76-156) 167/116 Physical Exam: Constitutional: alert, stares hard at me, occas nods/shakes head in response to questions but does not verbalize, though he is following some commands. Diffuse tremors and myoclonus, continuous. Respiratory: Clear to auscultation bilaterally (anterior exam), respiratory effort normal on room air Cardiovascular: tachy RR, sinus per tele. Gastrointestinal: normal bowel sounds, soft, nontender, nondistended Musculoskeletal: No bilateral ankle edema, Psychiatric: odd affect Neurologic: Alert, moves all extremities, interacting appropriately at times though he is not verbalizing. 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 Shifts legs in bed, movements appear symmetric. No facial droop. Results Reviewed: Results from last 7 days Lab Units 05/04/20 0802 05/03/20 2339 05/03/20 1616 05/03/20 0955 05/01/20 0907 04/28/20 1924 WBC 10*3/mm3 11.93* -- -- 9.65 7.58 < > -- HEMOGLOBIN g/dL 7.5* 7.5* 7.9* 7.6* 5.5* < > -- HEMATOCRIT % 24.2* 24.1* 24.8* 24.0* 17.2* < > -- PLATELETS 10*3/mm3 433 -- -- 372 269 < > -- PROCALCITONIN ng/mL -- -- -- -- -- -- 4.48* < > = values in this interval not displayed. Results from last 7 days Lab Units 05/04/20 1319 05/04/20 0802 05/01/20 0907 04/30/20 0759 04/29/20 0618 04/28/20 1924 SODIUM mmol/L -- 134* 134* 131* < > 134* -- POTASSIUM mmol/L 3.3* 3.8 4.1 4.0 < > 4.1 -- CHLORIDE mmol/L -- 96* 95* 92* < > 92* -- CO2 mmol/L -- 18.0* 20.0* 22.0 < > 20.0* -- BUN mg/dL -- 67* 81* 64* < > 98* -- CREATININE mg/dL -- 11.30* 10.03* 7.69* < > 10.55* -- GLUCOSE mg/dL -- 123* 195* 204* < > 196* -- CALCIUM mg/dL -- 9.1 8.6 8.9 < > 9.1 -- ALT (SGPT) U/L -- -- -- 26 -- 33 -- AST (SGOT) U/L -- -- -- 16 -- 17 -- TROPONIN T ng/mL -- -- -- -- -- -- 0.126* < > = values in this interval not displayed. Estimated Creatinine Clearance: 10.2 mL/min (A) (by C-G formula based on SCr of 11.3 mg/dL (H)). Microbiology Results Abnormal Procedure Component Value - Date/Time Fungus Culture - Tissue, Back, Lower [[id number]] Collected: 04/29/201914 Lab Status: Preliminary result Specimen: Tissue from Back, Lower Updated: 05/04/201999 Fungus Culture No fungus isolated at less than 1 week AFB Culture - Tissue, Back, Lower [[id number]] Collected: 04/29/201914 Lab Status: Preliminary result Specimen: Tissue from Back, Lower Updated: 05/04/201999 AFB Culture No AFB isolated at less than 1 week AFB Stain No acid fast bacilli seen on concentrated smear Anaerobic Culture - Tissue, Back, Lower [[id number]] Collected: 04/29/201914 Lab Status: Final result Specimen: Tissue from Back, Lower Updated: 05/04/20857 Anaerobic Culture No anaerobes isolated at 5 days Anaerobic Culture - Wound, Spine, Lumbar [[id number]] Collected: 04/29/20 1843 Lab Status: Final result Specimen: Wound from Spine, Lumbar Updated: 05/04/20857 Anaerobic Culture No anaerobes isolated at 5 days Blood Culture - Blood, Arm, Right [[id number]] Collected: 04/28/20 0650 Lab Status: Final result Specimen: Blood from Arm, Right Updated: 05/03/20 0800 Blood Culture No growth at 5 days Blood Culture - Blood, Wrist, Right [[id number]] Collected: 04/28/20 0701 Lab Status: Final result Specimen: Blood from Wrist, Right Updated: 05/03/20 0800 Blood Culture No growth at 5 days Tissue / Bone Culture - Tissue, Back, Lower [[id number]] Collected: 04/29/20 1915 Lab Status: Final result Specimen: Tissue from Back, Lower Updated: 05/02/20 0857 Tissue Culture No growth at 3 days Gram Stain Rare (1+) WBCs seen No organisms seen Wound Culture - Wound, Spine, Lumbar [[id number]] (Abnormal) Collected: 04/29/20 1843 Lab Status: Final result Specimen: Wound from Spine, Lumbar Updated: 05/01/20 0812 Wound Culture Rare Staphylococcus, coagulase negative Gram Stain No WBCs or organisms seen MRSA Screen, PCR (Inpatient) - Swab, Nares [[id number]] (Normal) Collected: 04/29/20 0150 Lab Status: Final result Specimen: Swab from Nares Updated: 04/29/20 0912 MRSA PCR Negative Narrative: MRSA Negative COVID PRE-OP / PRE-PROCEDURE SCREENING ORDER (NO ISOLATION) - Swab, Nasopharynx [[id number]] (Normal) Collected: 04/28/20 1505 Lab Status: Final result Specimen: Swab from Nasopharynx Updated: 04/28/20 1644 Narrative: The following orders were created for panel order COVID PRE-OP / PRE-PROCEDURE SCREENING ORDER (NO ISOLATION) - Swab, Nasopharynx. Procedure Abnormality Status --------- ------ Respiratory Panel PCR w/...[[id number]] Normal Final result Please view results for these tests on the individual orders. 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 Swab in UTM/VTM, 3-4 HR TAT - Swab, Nasopharynx [[id number]] (Normal) Collected: 04/28/20 1505 Lab Status: Final result Specimen: Swab from Nasopharynx Updated: 04/28/20 1644 ADENOVIRUS, PCR Not Detected Coronavirus 229E Not Detected Coronavirus HKU1 Not Detected Coronavirus NL63 Not Detected Coronavirus OC43 Not Detected COVID19 Not Detected Human Metapneumovirus Not Detected Human Rhinovirus/Enterovirus Not Detected Influenza A PCR Not Detected Influenza A H1 Not Detected Influenza A H1 2008 PCR Not Detected Influenza A H3 Not Detected Influenza B PCR Not Detected Parainfluenza Virus 1 Not Detected Parainfluenza Virus 2 Not Detected Parainfluenza Virus 3 Not Detected Parainfluenza Virus 4 Not Detected RSV, PCR Not Detected Bordetella pertussis pcr Not Detected Bordetella parapertussis PCR Not Detected Chlamydophila pneumoniae PCR Not Detected Mycoplasma pneumo by PCR Not Detected Narrative: Fact sheet for providers: https://docs.[employer]/wp-content/uploads/QLS3077-5341-QY7.1-EUA-Provi qrm-Vegi-Erbln-3.pdf Fact sheet for patients: https://[employer]/wp-content/uploads/TUK5445-6229-UG4.0-ZTA-Inlkej c-Dstc-Auiuv-1.pdf Imaging Results (Last 24 Hours) No results found for the last 24 hours. I have reviewed the medications: Scheduled Meds:carBAMazepine, 200 mg, Oral, Nightly cefTRIAXone, 2 g, Intravenous, Q24H cycloSPORINE modified, 50 mg, Oral, BID docusate sodium, 100 mg, Oral, BID entecavir, 0.5 mg, Oral, Weekly epoetin giancarlo/giancarlo-epbx, 20,000 Units, Subcutaneous, 3x Weekly famotidine, 10 mg, Oral, Daily gabapentin, 100 mg, Oral, Nightly hydrALAZINE, 100 mg, Oral, TID insulin detemir, 15 Units, Subcutaneous, Nightly insulin lispro, 0-9 Units, Subcutaneous, TID AC metoprolol tartrate, 100 mg, Oral, Q8H mycophenolate, 250 mg, Oral, Daily mycophenolate, 250 mg, Oral, Nightly NIFEdipine CC, 90 mg, Oral, BID oxyCODONE, 10 mg, Oral, Q6H sodium chloride, 10 mL, Intravenous, Q12H sodium chloride, 3 mL, Intravenous, Q12H vancomycin (dosing per levels), , Does not apply, Daily Continuous Infusions:Pharmacy to dose vancomycin, sodium chloride, 9 mL/hr, Last Rate: 9 mL/hr (04/29/20 1608) PRN Meds:.??? acetaminophen OR acetaminophen OR acetaminophen ??? acetaminophen ??? calcium carbonate EX ??? dextrose ??? dextrose ??? glucagon (human recombinant) ??? HYDROmorphone ??? [DISCONTINUED] HYDROmorphone AND naloxone ??? ondansetron ??? Pharmacy to dose vancomycin ??? sodium chloride ??? sodium chloride ??? temazepam ??? terazosin Assessment/Plan Assessment & Plan Active Hospital Problems Diagnosis POA ??? Sepsis (CMS/HCC) [A41.9] Yes ??? KIM (nonalcoholic steatohepatitis) [K75.81] Unknown ??? History of liver transplant (CMS/HCC) [Z94.4] Not Applicable ??? Immunosuppression (CMS/HCC) [D89.9] Unknown ??? Type 2 diabetes mellitus (CMS/HCC) [E11.9] Unknown ??? Altered mental state [R41.82] Unknown ??? ESRD (end stage renal disease) (CMS/HCC) [N18.6] Unknown ??? Hyponatremia [E87.1] Unknown ??? Discitis [M46.40] Unknown ??? 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] Unknown ??? Leukocytosis [D72.829] Unknown Resolved Hospital Problems No resolved problems to display. Brief Hospital Course to date: Leoncio Rollins is a 45 y.o. male with history of liver transplant 2018 secondary to KIM, ESRD on home dialysis 5 days per week, DM who presents with 1 week of back pain, fever and AMS. Found to havediscitis and epidural abscess on imaging. NEw: Altered mental status with diffuse tremors/myoclonus and tachycardia - patient was placed on full-dose baclofen 2 days ago, got HD yest (seemed sleepy but otherwise appropr afterwards) - suspect this is baclofen toxicity - discussed with Pharm who rec supportive care (no antidote known) and with Renal who say it is notremoved by HD. - DC baclofen - dc neurontin though doubt this is the cause as he has been getting 100 qhs - try low dose ativan (1600) as he remains w myoclonus/spasticity - calcium was okay yest AM - discussed w ; will request that she be allwoed to stay w patient tonight as he is unable to make his needs known Severe sepsis (fever, confusion, leukocytosis, lactic acidosis) in setting of immunosuppression Discitis Epidural abscess - MRI L5/S1 with osteomyelitis/discitis and fluid collection concerning for epidural abscess - BCx negative. 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 04/29 L5 laminectomy, epidural abscess I and D. - Continue vancomycin and CTX , LIDC appreciated. - pain control - added orals and muscle relaxants 05/03 - stopping baclofen now. HTN uncontrolled - pain may be contributing. - increased metoprolol to TID - HD yest did not help; current baclofen-induced neuromusc issues may be contributing. Discussed w Renal Acute anemia - heme pos stool and 'melena' but no fall in hgb with this - 2u in HD Monday - EGD 05/04 near normal - stop PPI and return CellCept dosing to his usual. - follow. Epo. Severe constip - resolved w aggressive mgmt Metabolic encephalopathy waxes/wanes Now complicated by acute change (suspected baclofen effect) - sepsis, uremia, narcotics - Reduced gabapentin dose - KASLA noted gabapentin, benzo. . Liver transplant on chronic immunosuppression ([facility]) - history of transplant at in 2018 for KIM - Will continue cyclosporine and cellcept -- patient's to bring in patient's entecavir - GI and ID consulted ; GI recommends continuing immunosuppressives ?? ESRD Uremia Hyponatremia - Currently on home dialysis 5 days per week , suspect he could decr to tiw wtihout difficulty. Will d/w nephrol. Sees. Dr. Cheney typically. - Nephrology following - epo ?? DM on NPH bid at home - SSI; adjust PRN - add levemir qhs today. ?? Acute pain from lumbar infxn - pt denies chronic opioid use - added scheduled oxycodone - decreased prn dilaudid to .5mg - baclofen attemtped by NSGY - stopping due to tremors/confusion DVT prophylaxis: SCDs ?? Disposition: I expect the patient to be discharged TBD. Would be hard to get into SNF due to combination of Medicaid and HD needs. CODE STATUS: Code Status and Medical Interventions: Ordered at: 04/28/20 1125 Code Status: CPR Medical Interventions (Level of Support Prior to Arrest): Full * Marilee De La Cruz RN - 05/04/2020 4:35 PM EDT Continued Stay Note [facility] Patient Name: Leoncio Rollins Today's Date: 05/04/2020 Admit Date: 04/28/2020 Discharge Plan Row Name 05/04/20 1634 Plan Plan TBD Plan Comments Case mgt f/u. currently in procedure,so CM unable to visit with patient, will f/u in am. PT eval noed, still unable to ambulate Discharge Codes No documentation. Marilee De La Cruz RN * Vivek Ramos RPH - 05/04/2020 1:38 PM EDT Images from the original note were not included. Pharmacy Consult-Vancomycin Dosing Leoncio Rollins is a 45 y.o. male receiving vancomycin therapy. Indication: sepsis secondary to spine discitis osteomyelitis Consulting Provider: Keara Berg DO ID Consult: Cayetano Rodriguez MD Goal trough: 15-20mcg/ml Current Antimicrobial Therapy Anti-Infectives (From admission, onward) Ordered Dose/Rate Route Frequency Start Stop 05/04/20 1324 vancomycin in dextrose 5% 150 mL (VANCOCIN) IVPB 750 mg Ordering Provider: Vivek Ramos RPH 750 mg over 60 Minutes Intravenous Once 05/04/20 1600 05/01/20 1018 cefTRIAXone (ROCEPHIN) 2 g/100 mL 0.9% NS IVPB (MBP) Marilin Conn reviewed the order on 05/03/20 1242. Ordering Provider: Cayetano Rodriguez MD 2 g over 30 Minutes Intravenous Every 24 Hours 05/01/20199905/08/20 19505/01/20 1140 vancomycin in dextrose 5% 150 mL (VANCOCIN) IVPB 750 mg Ordering Provider: Germán Resendiz RPH 750 mg over 60 Minutes Intravenous Once 05/01/20 1230 05/01/20 1704 04/29/20 1119 vancomycin (VANCOCIN) in iso-osmotic dextrose IVPB 1 g (premix) 200 mL Ordering Provider: Germán Resendiz RPH 1,000 mg over 60 Minutes Intravenous Once 04/29/20 1600 04/29/20 1750 04/28/20 1131 entecavir (BARACLUDE) tablet 0.5 mg (PATIENT SUPPLIED MED) Ordering Provider: Yinka Garnica MD 0.5 mg Oral Weekly 04/28/20212904/28/20 1915 vancomycin (dosing per levels) Marilin Conn reviewed the order on 05/03/20 1242. Ordering Provider: Marilin Conn Does not apply Daily 04/28/20201405/06/20 1238 04/28/20 1130 Pharmacy to dose vancomycin Germán Resendiz RPH let the order on 05/01/20 0918. Ordering Provider: Yinka Garnica MD Does not apply Continuous PRN 04/28/20 1130 05/05/20 1129 04/28/20 0650 vancomycin 2500 mg/500 mL 0.9% NS IVPB ([facility]) Ordering Provider: Kym Garcia, DO 20 mg/kg ?? 125 kg over 150 Minutes Intravenous Once 04/28/20 0652 04/28/20 1256 04/28/20 0650 cefTRIAXone (ROCEPHIN) 1 g/100 mL 0.9% NS (MBP) Ordering Provider: Kym Garcia, DO 1 g over 30 Minutes Intravenous Once 04/28/20 0652 04/28/20 0859 Allergies Allergies as of 04/27/2020 (Not on File) Labs Results from last 7 days Lab Units 05/04/20 0802 05/01/20 0907 04/30/20 0759 BUN mg/dL 67* 81* 64* CREATININE mg/dL 11.30* 10.03* 7.69* Results from last 7 days Lab Units 05/04/20 0802 05/03/20 0955 05/01/20 0907 WBC 10*3/mm3 11.93* 9.65 7.58 Evaluation of Dosing Last Dose Received in the ED/Outside Facility: 2500mg in ED 04/28 Is Patient on Dialysis or 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 Ht - 170.2 cm (67 ) Wt - 122 kg (268 lb) Estimated Creatinine Clearance: 10.2 mL/min (A) (by C-G formula based on SCr of 11.3 mg/dL (H)). Intake & Output (last 3 days) 05/01 701 - 05/02 0705/02 - 05/03 0700 05/03 07 - 05/04 0700 05/04 0705/05 0700 P.O. 480 1040 600 Blood 1080 Total Intake(mL/kg) 1560 (12.8) 1040 (8.5) 600 (4.9) Urine (mL/kg/hr) 100 (0) 100 (0) Drains 40 Other 1640 Stool 0 0 Total Output 1680 100 100 Net -120 +940 +500 Urine Unmeasured Occurrence 1 x Stool Unmeasured Occurrence 3 x 1 x Microbiology and Radiology Microbiology Results (last 10 days) Procedure Component Value - Date/Time Anaerobic Culture - Tissue, Back, Lower [[id number]] Collected: 04/29/201914 Lab Status: Final result Specimen: Tissue from Back, Lower Updated: 05/04/20 0858 Anaerobic Culture No anaerobes isolated at 5 days Tissue / Bone Culture - Tissue, Back, Lower [[id number]] Collected: 04/29/201914 Lab Status: Final result Specimen: Tissue from Back, Lower Updated: 05/02/20 0857 Tissue Culture No growth at 3 days Gram Stain Rare (1+) WBCs seen No organisms seen AFB Culture - Tissue, Back, Lower [[id number]] Collected: 04/29/201914 Lab Status: Preliminary result Specimen: Tissue from Back, Lower Updated: 04/30/20 1225 AFB Stain No acid fast bacilli seen on concentrated smear Wound Culture - Wound, Spine, Lumbar [[id number]] (Abnormal) Collected: 04/29/20 1843 Lab Status: Final result Specimen: Wound from Spine, Lumbar Updated: 05/01/20 0812 Wound Culture Rare Staphylococcus, coagulase negative Gram Stain No WBCs or organisms seen Anaerobic Culture - Wound, Spine, Lumbar [[id number]] Collected: 04/29/20 1843 Lab Status: Final result Specimen: Wound from Spine, Lumbar Updated: 05/04/20 0858 Anaerobic Culture No anaerobes isolated at 5 days MRSA Screen, PCR (Inpatient) - Swab, Nares [[id number]] (Normal) Collected: 04/29/20 0150 Lab Status: Final result Specimen: Swab from Nares Updated: 04/29/20 0912 MRSA PCR Negative Narrative: MRSA Negative COVID PRE-OP / PRE-PROCEDURE SCREENING ORDER (NO ISOLATION) - Swab, Nasopharynx [[id number]] (Normal) Collected: 04/28/20 1505 Lab Status: Final result Specimen: Swab from Nasopharynx Updated: 04/28/20 1644 Narrative: The following orders were created for panel order COVID PRE-OP / PRE-PROCEDURE SCREENING ORDER (NO ISOLATION) - Swab, Nasopharynx. Procedure Abnormality Status --------- ------ Respiratory Panel PCR w/...[[id number]] Normal Final result Please view results for these tests on the individual orders. Respiratory Panel PCR w/COVID-19(SARS-CoV-2) EMIYL/SHADIA/ANN/PAD/COR/MAD In-House, ESL INSTRUCTOR Swab in UTM/VTM, 3-4 HR TAT - Swab, Nasopharynx [[id number]] (Normal) Collected: 04/28/20 1505 Lab Status: Final result Specimen: Swab from Nasopharynx Updated: 04/28/20 1644 ADENOVIRUS, PCR Not Detected Coronavirus 229E Not Detected Coronavirus HKU1 Not Detected Coronavirus NL63 Not Detected Coronavirus OC43 Not Detected COVID19 Not Detected Human Metapneumovirus Not Detected Human Rhinovirus/Enterovirus Not Detected Influenza A PCR Not Detected Influenza A H1 Not Detected Influenza A H1 2008 PCR Not Detected Influenza A H3 Not Detected Influenza B PCR Not Detected Parainfluenza Virus 1 Not Detected Parainfluenza Virus 2 Not Detected Parainfluenza Virus 3 Not Detected Parainfluenza Virus 4 Not Detected RSV, PCR Not Detected Bordetella pertussis pcr Not Detected Bordetella parapertussis PCR Not Detected Chlamydophila pneumoniae PCR Not Detected Mycoplasma pneumo by PCR Not Detected Narrative: Fact sheet for providers: https://docs.[employer]/wp-content/uploads/KPA0939-9935-GZ8.1-EUA-Provi gnh-Zaod-Pskwz-3.pdf Fact sheet for patients: https://docs.[employer]/wp-content/uploads/QOL0858-0654-NK4.6-CQQ-Kpbokk p-Wjkw-Muvrv-1.pdf Blood Culture - Blood, Wrist, Right [[id number]] Collected: 04/28/20 0701 Lab Status: Final result Specimen: Blood from Wrist, Right Updated: 05/03/20 0800 Blood Culture No growth at 5 days Blood Culture - Blood, Arm, Right [[id number]] Collected: 04/28/20 0650 Lab Status: Final result Specimen: Blood from Arm, Right Updated: 05/03/20 0800 Blood Culture No growth at 5 days Evaluation of Level Results from last 7 days Lab Units 05/01/20 0907 04/29/20 0618 VANCOMYCIN RM mcg/mL 21.60 21.50 Assessment/Plan: Pharmacy to dose vancomycin for sepsis. HD patient, goal trough 15 - 20mcg/mL Patient received loading dose of vancomycin 2500mg (~20mg/kg) IV on 04/28 @ 1026. Received Vancomycin 1000mg once on 04/29 following dialysis. Received Vancomycin 750 mg once on 05/01 following dialysis, has not received any additional doses. Underwent HD session today, 05/04. No vancomycin level to review. Will schedule vancomycin 750mgx 1 today to be given after dialysis. Dosing per levels at this time. No defined inpatient HD schedule currently, will order a vancomycin random level for 05/06 Rip labs pending scheduling of next HD session. Pharmacy will continue to monitor renal function, cultures and sensitivities, and clinical status to adjust regimen as necessary. Vivek Ramos RPH 05/04/20 13:28 EDT * Cayetano Rodriguez MD - 05/04/2020 11:59 AM EDT [facility] Progress Note Date of Admission: 04/28/2020 Antibiotics: Vancomycin and ceftriaxone CC: Chief Complaint Patient presents with ??? Back Pain ??? Multiple complaints S: Patient getting hemodialysis today no fevers hemodynamics stable still some intermittent confusion. O: BP (!) 180/149 Pulse 94 Temp 98.8 ??F (37.1 ??C) (Oral) Resp 16 Ht 170.2 cm (67 ) Wt 122 kg (268 lb) SpO2 94% BMI 41.97 kg/m?? Temp (24hrs), Av.4 ??F (36.9 ??C), Min:98 ??F (36.7 ??C), Max:98.8 ??F (37.1 ??C) PE: GENERAL: lethargic in NAD. Pale appearance chronically ill-appearing HEENT: Normocephalic, atraumatic. PERRL. EOMI. No conjunctival injection. No icterus. Oropharynx clear without evidence of thrush or exudate. No evidence of peridontal disease. NECK: Supple without nuchal rigidity LYMPH: No cervical, axillary or inguinal lymphadenopathy. No neck masses HEART: RRR; No murmur, rubs, gallops. LUNGS: Clear to auscultation bilaterally without wheezing, rales, rhonchi. Normal respiratory effort. ABDOMEN: Soft, obese and distended positive bowel sounds. No rebound or guarding. EXT: No cyanosis, clubbing or edema : Normal appearing genitalia without Anders catheter. MSK: decreased ROM of l spine SKIN: Warm and dry without cutaneous eruptions. NEURO: Oriented to PPT. No focal deficits. Mild decreased sensation in feet but good strength 5 outof 5 of upper and lower extremities PSYCHIATRIC: Poor insight and judgement. Cooperative with PE ?? Laboratory Data Results from last 7 days Lab Units 05/04/20 0802 05/03/20 2339 05/03/20 1616 05/03/20 0955 05/01/20 0907 WBC 10*3/mm3 11.93* -- -- 9.65 7.58 HEMOGLOBIN g/dL 7.5* 7.5* 7.9* 7.6* 5.5* HEMATOCRIT % 24.2* 24.1* 24.8* 24.0* 17.2* PLATELETS 10*3/mm3 433 -- -- 372 269 Results from last 7 days Lab Units 05/04/20 0802 SODIUM mmol/L 134* POTASSIUM mmol/L 3.8 CHLORIDE mmol/L 96* CO2 mmol/L 18.0* BUN mg/dL 67* CREATININE mg/dL 11.30* GLUCOSE mg/dL 123* CALCIUM mg/dL 9.1 Results from last 7 days Lab Units 04/30/20 0759 ALK PHOS U/L 71 BILIRUBIN mg/dL 0.2 ALT (SGPT) U/L 26 AST (SGOT) U/L 16 Estimated Creatinine Clearance: 10.2 mL/min (A) (by C-G formula based on SCr of 11.3 mg/dL (H)). Microbiology: Blood cultures negative to date Wound cultures with coag-negative staph Radiology: Imaging Results (Last 24 Hours) No results found for the last 24 hours. 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 ASSESSMENT: Patient is a 45-year-old with Kim with end-stage liver disease underwent transplant on immunosuppressive therapy on home hemodialysis 5 days/week with end-stage renal disease recent right chest walldialysis cath removed with some erythema this was followed by increasing lower back pain which progressed to fevers chills difficulty with ambulation. He was seen at several ERs including [facility] given Keflex with some improvement. Now admitted with fevers chills leukocytosis MRI revealing lumbar spine discitis osteomyelitis and fluid seen on MRI and epidural space of L5-S1 but no overt neurologic deficits today. ?? Get old records from [facility], it appears no blood cultures were obtained at any ER visit and had partially treated case with Keflex with some improvement. His white blood cell count has further decreased with vancomycin and Zosyn and now with surgical cultures with coag negative staph most likely this is a pathogen could be staph lugdunensis we will continue vancomycin and ceftriaxone 2 g IV daily. Continue long-term antibiotics getting hemodialysis today CPLAN: Continue vancomycin dosed by pharmacy on hemodialysis Cont ceftriaxone in case this is a methicillin susceptible coag negative staph such as staph lugdunensis Still with pain and confusion Monitor H&H Cayetano Rodriguez MD 05/04/2020 * Hilton Hamm MD - 05/04/2020 8:50 AM EDT LOS: 6 days Patient Care Team: Edgar Fournier MD as PCP - General (Family Medicine) Reason For Visit: F/U ESRD. SEEN ON DIALYSIS Subjective Review of Systems: Pulm: No soa CV: No CP Objective baclofen, 10 mg, Oral, Q6H carBAMazepine, 200 mg, Oral, Nightly cefTRIAXone, 2 g, Intravenous, Q24H cycloSPORINE modified, 50 mg, Oral, BID docusate sodium, 100 mg, Oral, BID entecavir, 0.5 mg, Oral, Weekly epoetin giancarlo/giancarlo-epbx, 20,000 Units, Subcutaneous, 3x Weekly famotidine, 10 mg, Oral, Daily gabapentin, 100 mg, Oral, Nightly hydrALAZINE, 100 mg, Oral, TID insulin detemir, 15 Units, Subcutaneous, Nightly insulin lispro, 0-9 Units, Subcutaneous, TID AC metoprolol tartrate, 100 mg, Oral, Q8H mycophenolate, 250 mg, Oral, Daily mycophenolate, 500 mg, Oral, Nightly NIFEdipine CC, 90 mg, Oral, BID oxyCODONE, 10 mg, Oral, Q6H pantoprazole, 40 mg, Intravenous, BID AC sodium chloride, 10 mL, Intravenous, Q12H sodium chloride, 3 mL, Intravenous, Q12H vancomycin (dosing per levels), , Does not apply, Daily Pharmacy to dose vancomycin, sodium chloride, 9 mL/hr, Last Rate: 9 mL/hr (04/29/20 1608) Vital Signs: Blood pressure (!) 183/90, pulse 97, temperature 98.8 ??F (37.1 ??C), temperature source Oral, resp. rate 16, height 170.2 cm (67 ), weight 122 kg (268 lb), SpO2 94 %. Flowsheet Rows First Filed Value Admission Height 170.2 cm (67 ) Documented at 04/27/2020 2355 Admission Weight 125 kg (275 lb) Documented at 04/27/2020 3053 05/03 0701 - 05/04 0700 In: 600 [P.O.:600] Out: 100 [Urine:100] Physical Exam: General Appearance: NAD Eyes: PER, conjunctivae and sclerae normal, no icterus Lungs: respirations regular and unlabored, no crepitus, clear to auscultation Heart/CV: regular rhythm & normal rate, no murmur, no gallop, no rub and no edema Abdomen: not distended, soft, non-tender, no masses, bowel sounds present Skin: No rash, Warm and dry. AVF. Radiology: Labs: Results from last 7 days Lab Units 05/03/20 2339 05/03/20 1616 05/03/20 0955 05/01/20 0907 04/30/20 0759 WBC 10*3/mm3 -- -- 9.65 7.58 9.44 HEMOGLOBIN g/dL 7.5* 7.9* 7.6* 5.5* 6.3* HEMATOCRIT % 24.1* 24.8* 24.0* 17.2* 19.6* PLATELETS 10*3/mm3 -- -- 372 269 292 Results from last 7 days Lab Units 05/01/20 0907 04/30/20 0759 04/29/20 1533 04/29/20 0618 04/28/20 0016 SODIUM mmol/L 134* 131* 132* 134* 129* POTASSIUM mmol/L 4.1 4.0 4.2 4.1 4.3 CHLORIDE mmol/L 95* 92* 95* 92* 80* CO2 mmol/L 20.0* 22.0 19.0* 20.0* 19.0* BUN mg/dL 81* 64* 48* 98* 109* CREATININE mg/dL 10.03* 7.69* 5.03* 10.55* 14.39* CALCIUM mg/dL 8.6 8.9 9.0 9.1 9.3 PHOSPHORUS mg/dL -- 5.7* -- -- -- MAGNESIUM mg/dL -- -- -- 2.3 2.4 ALBUMIN g/dL -- 3.30* -- 3.50 3.60 Results from last 7 days Lab Units 05/01/20 0907 GLUCOSE mg/dL 195* Results from last 7 days Lab Units 04/30/20 0759 ALK PHOS U/L 71 BILIRUBIN mg/dL 0.2 ALT (SGPT) U/L 26 AST (SGOT) U/L 16 Results from last 7 days Lab Units 04/28/20 1143 PH, ARTERIAL pH units 7.277* PO2 ART mm Hg 88.1 PCO2, ARTERIAL mm Hg 46.8* HCO3 ART mmol/L 21.8 Results from last 7 days Lab Units 04/29/20 0144 COLOR UA Yellow CLARITY UA Clear PH, URINE <=5.0 SPECIFIC GRAVITY, URINE 1.017 GLUCOSE UA 100 mg/dL (Trace)* KETONES UA Negative BILIRUBIN UA Negative PROTEIN UA >=300 mg/dL (3+)* BLOOD UA Negative LEUKOCYTES UA Negative NITRITE UA Negative Estimated Creatinine Clearance: 11.5 mL/min (A) (by C-G formula based on SCr of 10.03 mg/dL (H)). Assessment Sepsis (CMS/HCC) KIM (nonalcoholic steatohepatitis) History of liver transplant (CMS/HCC) Immunosuppression (CMS/HCC) Type 2 diabetes mellitus (CMS/HCC) Altered mental state ESRD (end stage renal disease) (CMS/HCC) Hyponatremia Discitis Epidural abscess Leukocytosis Impression: ESRD. ANEMIA. GI BLEED. Recommendations: HD TODAY. Hilton Hamm MD 05/04/20 08:50 EDT * Odette Grace MD - 05/04/2020 8:27 AM EDT Images from the original note were not included. [facility] Medicine Services PROGRESS NOTE Patient Name: Leoncio Rollins : 1975 Date of Admission: 04/28/2020 Primary Care Physician: Edgar Fournier MD Subjective Subjective CC: Back pain HPI: Tmax 99.6. Despite report of tarry stools, his hgb has remained stable. Asked for IV narcoticsroutinely despite scheduled meds; back from HD he is currently very sleepy. Did not work with PT yesterday due to pain complaints. Review of Systems Sleepy, UTO except from staff. Objective Objective Vital Signs: Temp: [97.6 ??F (36.4 ??C)-98.8 ??F (37.1 ??C)] 98.1 ??F (36.7 ??C) Heart Rate: [91-115] 115 Resp: [16-18] 16 BP: (111-183)/(79-149) 151/79 Physical Exam: Constitutional: dozing; nods off during exam, hard to rouse Respiratory: Clear to auscultation bilaterally, respiratory effort normal on room air Cardiovascular: rrr Gastrointestinal: normal bowel sounds, soft, nontender, mildly distended Musculoskeletal: No bilateral ankle edema, Psychiatric: Appropriate affect, cooperative Neurologic: somnolent, wakes briefly and nods understanding but doesn't stay awake Results Reviewed: Results from last 7 days Lab Units 05/04/20 0802 05/03/20 2339 05/03/20 1616 05/03/20 0955 05/01/20 0907 04/28/20 192 WBC 10*3/mm3 11.93* -- -- 9.65 7.58 < > -- HEMOGLOBIN g/dL 7.5* 7.5* 7.9* 7.6* 5.5* < > -- HEMATOCRIT % 24.2* 24.1* 24.8* 24.0* 17.2* < > -- PLATELETS 10*3/mm3 433 -- -- 372 269 < > -- PROCALCITONIN ng/mL -- -- -- -- -- -- 4.48* < > = values in this interval not displayed. Results from last 7 days Lab Units 05/04/20 0802 05/01/20 0907 04/30/20 0759 04/29/20 0618 04/28/20 1924 04/28/20 0016 SODIUM mmol/L 134* 134* 131* < > 134* -- 129* POTASSIUM mmol/L 3.8 4.1 4.0 < > 4.1 -- 4.3 CHLORIDE mmol/L 96* 95* 92* < > 92* -- 80* CO2 mmol/L 18.0* 20.0* 22.0 < > 20.0* -- 19.0* BUN mg/dL 67* 81* 64* < > 98* -- 109* CREATININE mg/dL 11.30* 10.03* 7.69* < > 10.55* -- 14.39* GLUCOSE mg/dL 123* 195* 204* < > 196* -- 285* CALCIUM mg/dL 9.1 8.6 8.9 < > 9.1 -- 9.3 ALT (SGPT) U/L -- -- 26 -- 33 -- 48* AST (SGOT) U/L -- -- 16 -- 17 -- 24 TROPONIN T ng/mL -- -- -- -- -- 0.126* 0.154* < > = values in this interval not displayed. Estimated Creatinine Clearance: 10.2 mL/min (A) (by C-G formula based on SCr of 11.3 mg/dL (H)). Microbiology Results Abnormal Procedure Component Value - Date/Time Anaerobic Culture - Tissue, Back, Lower [[id number]] Collected: 04/29/201914 Lab Status: Final result Specimen: Tissue from Back, Lower Updated: 05/04/20 0858 Anaerobic Culture No anaerobes isolated at 5 days Anaerobic Culture - Wound, Spine, Lumbar [[id number]] Collected: 04/29/201842 Lab Status: Final result Specimen: Wound from Spine, Lumbar Updated: 05/04/20 0858 Anaerobic Culture No anaerobes isolated at 5 days Blood Culture - Blood, Arm, Right [[id number]] Collected: 04/28/20 0650 Lab Status: Final result Specimen: Blood from Arm, Right Updated: 05/03/20 0800 Blood Culture No growth at 5 days Blood Culture - Blood, Wrist, Right [[id number]] Collected: 04/28/20 0701 Lab Status: Final result Specimen: Blood from Wrist, Right Updated: 05/03/20 0800 Blood Culture No growth at 5 days Tissue / Bone Culture - Tissue, Back, Lower [[id number]] Collected: 04/29/201914 Lab Status: Final result Specimen: Tissue from Back, Lower Updated: 05/02/20 0857 Tissue Culture No growth at 3 days Gram Stain Rare (1+) WBCs seen No organisms seen Wound Culture - Wound, Spine, Lumbar [[id number]] (Abnormal) Collected: 04/29/201842 Lab Status: Final result Specimen: Wound from Spine, Lumbar Updated: 05/01/20 0812 Wound Culture Rare Staphylococcus, coagulase negative Gram Stain No WBCs or organisms seen AFB Culture - Tissue, Back, Lower [[id number]] Collected: 04/29/20 1915 Lab Status: Preliminary result Specimen: Tissue from Back, Lower Updated: 04/30/20 1225 AFB Stain No acid fast bacilli seen on concentrated smear MRSA Screen, PCR (Inpatient) - Swab, Nares [[id number]] (Normal) Collected: 04/29/20 0150 Lab Status: Final result Specimen: Swab from Nares Updated: 04/29/20 0912 MRSA PCR Negative Narrative: MRSA Negative COVID PRE-OP / PRE-PROCEDURE SCREENING ORDER (NO ISOLATION) - Swab, Nasopharynx [[id number]] (Normal) Collected: 04/28/20 1505 Lab Status: Final result Specimen: Swab from Nasopharynx Updated: 04/28/20 1644 Narrative: The following orders were created for panel order COVID PRE-OP / PRE-PROCEDURE SCREENING ORDER (NO ISOLATION) - Swab, Nasopharynx. Procedure Abnormality Status --------- ------ Respiratory Panel PCR w/...[[id number]] Normal Final result Please view results for these tests on the individual orders. 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 Swab in UTM/VTM, 3-4 HR TAT - Swab, Nasopharynx [[id number]] (Normal) Collected: 04/28/20 1505 Lab Status: Final result Specimen: Swab from Nasopharynx Updated: 04/28/20 164 ADENOVIRUS, PCR Not Detected Coronavirus 229E Not Detected Coronavirus HKU1 Not Detected Coronavirus NL63 Not Detected Coronavirus OC43 Not Detected COVID19 Not Detected Human Metapneumovirus Not Detected Human Rhinovirus/Enterovirus Not Detected Influenza A PCR Not Detected Influenza A H1 Not Detected Influenza A H1 2009 PCR Not Detected Influenza A H3 Not Detected Influenza B PCR Not Detected Parainfluenza Virus 1 Not Detected Parainfluenza Virus 2 Not Detected Parainfluenza Virus 3 Not Detected Parainfluenza Virus 4 Not Detected RSV, PCR Not Detected Bordetella pertussis pcr Not Detected Bordetella parapertussis PCR Not Detected Chlamydophila pneumoniae PCR Not Detected Mycoplasma pneumo by PCR Not Detected Narrative: Fact sheet for providers: https://docs.[employer]/wp-content/uploads/HFT7562-8376-BM2.1-Kuldip kyz-Mcps-Lcelz-3.pdf Fact sheet for patients: https://docs.[employer]/wp-content/uploads/RHT3676-9856-TF0.7-XUJ-Zldiyu z-Yldk-Dgmlh-1.pdf Imaging Results (Last 24 Hours) No results found for the last 24 hours. I have reviewed the medications: Scheduled Meds:baclofen, 10 mg, Oral, Q6H carBAMazepine, 200 mg, Oral, Nightly cefTRIAXone, 2 g, Intravenous, Q24H cycloSPORINE modified, 50 mg, Oral, BID docusate sodium, 100 mg, Oral, BID entecavir, 0.5 mg, Oral, Weekly epoetin giancarlo/giancarlo-epbx, 20,000 Units, Subcutaneous, 3x Weekly famotidine, 10 mg, Oral, Daily gabapentin, 100 mg, Oral, Nightly hydrALAZINE, 100 mg, Oral, TID insulin detemir, 15 Units, Subcutaneous, Nightly insulin lispro, 0-9 Units, Subcutaneous, TID AC metoprolol tartrate, 100 mg, Oral, Q8H mycophenolate, 250 mg, Oral, Daily mycophenolate, 500 mg, Oral, Nightly NIFEdipine CC, 90 mg, Oral, BID oxyCODONE, 10 mg, Oral, Q6H pantoprazole, 40 mg, Intravenous, BID AC sodium chloride, 10 mL, Intravenous, Q12H sodium chloride, 3 mL, Intravenous, Q12H vancomycin (dosing per levels), , Does not apply, Daily Continuous Infusions:Pharmacy to dose vancomycin, sodium chloride, 9 mL/hr, Last Rate: 9 mL/hr (04/29/20 1608) PRN Meds:.??? acetaminophen OR acetaminophen OR acetaminophen ??? acetaminophen ??? calcium carbonate EX ??? dextrose ??? dextrose ??? glucagon (human recombinant) ??? HYDROmorphone ??? HYDROmorphone AND naloxone ??? ondansetron ??? Pharmacy to dose vancomycin ??? sodium chloride ??? sodium chloride ??? temazepam ??? terazosin Assessment/Plan Assessment & Plan Active Hospital Problems Diagnosis POA ??? Sepsis (CMS/HCC) [A41.9] Yes ??? KIM (nonalcoholic steatohepatitis) [K75.81] Unknown ??? History of liver transplant (CMS/HCC) [Z94.4] Not Applicable ??? Immunosuppression (CMS/HCC) [D89.9] Unknown ??? Type 2 diabetes mellitus (CMS/HCC) [E11.9] Unknown ??? Altered mental state [R41.82] Unknown ??? ESRD (end stage renal disease) (CMS/HCC) [N18.6] Unknown ??? Hyponatremia [E87.1] Unknown ??? Discitis [M46.40] Unknown ??? 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] Unknown ??? Leukocytosis [D72.829] Unknown Resolved Hospital Problems No resolved problems to display. Brief Hospital Course to date: Leoncio Rollins is a 45 y.o. male with history of liver transplant 2018 secondary to KIM, ESRD on home dialysis 5 days per week, DM who presents with 1 week of back pain, fever and AMS. Found to havediscitis and epidural abscess on imaging. Severe sepsis (fever, confusion, leukocytosis, lactic acidosis) in setting of immunosuppression Discitis Epidural abscess - MRI L5/S1 with osteomyelitis/discitis and fluid collection concerning for epidural abscess - BCx negative. 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 04/29 L5 laminectomy, epidural abscess I and D. - ID: antibiotic therapy. Continue vancomycin and CTX day 5, - pain control - added orals and muscle relaxants 05/03 HTN uncontrolled - pain may be contributing. - increase metoprolol to TID - HD today may help; if not discuss w Renal Acute UGI bleed with anemia - recurrent melena but no fall in hgb with this. Heme pos. - 2u in HD Monday - GI following, likely scope today - PPI BID started; note med interactions with cellcept; after Pharm discussion I have increased Cellcept to 250/500 and discussed w patient. - stopped ASA - likely stop/decrease PPI after scope and decr CellCept too Severe constip - resolved w aggressive mgmt Metabolic encephalopathy waxes/wanes - sepsis, uremia, and likely narcotics - Reduced gabapentin dose Liver transplant on chronic immunosuppression - history of transplant at in 2018 for KIM - Will continue cyclosporine and cellcept (dose increased due to PPI) -- patient's to bring inpatient's entecavir - GI and ID consulted ; GI recommends continuing immunosuppressives ?? ESRD Uremia Hyponatremia - Currently on home dialysis 5 days per week , suspect he could decr to tiw wtihout difficulty. Will d/w nephrol. Sees. Dr. Yana uribe. - Nephrology following - epo ?? DM on NPH bid at home - SSI; adjust PRN - add levemir qhs today. ?? Acute pain from lumbar infxn - pt denies chronic opioid use - added scheduled oxycodone - decrease prn dilaudid to .5mg - try sched baclofen DVT prophylaxis: SCDs ?? Disposition: I expect the patient to be discharged TBD. Would be hard to get into SNF due to combination of Medicaid and HD needs. CODE STATUS: Code Status and Medical Interventions: Ordered at: 04/28/20 1125 Code Status: CPR Medical Interventions (Level of Support Prior to Arrest): Full * Hilton Hamm MD - 05/03/2020 12:08 PM EDT LOS: 5 days Patient Care Team: Edgar Fournier MD as PCP - General (Family Medicine) Reason For Visit: F/U ESRD Subjective Review of Systems: Pulm: No soa CV: No CP Objective baclofen, 10 mg, Oral, Q6H carBAMazepine, 200 mg, Oral, Nightly cefTRIAXone, 2 g, Intravenous, Q24H cycloSPORINE modified, 50 mg, Oral, BID docusate sodium, 100 mg, Oral, BID entecavir, 0.5 mg, Oral, Weekly epoetin giancarlo/giancarlo-epbx, 20,000 Units, Subcutaneous, 3x Weekly famotidine, 10 mg, Oral, Daily gabapentin, 100 mg, Oral, Nightly hydrALAZINE, 100 mg, Oral, TID insulin detemir, 15 Units, Subcutaneous, Nightly insulin lispro, 0-9 Units, Subcutaneous, TID AC metoprolol tartrate, 100 mg, Oral, Q12H [START ON 05/04/2020] mycophenolate, 250 mg, Oral, Daily mycophenolate, 500 mg, Oral, Nightly NIFEdipine CC, 90 mg, Oral, BID oxyCODONE, 10 mg, Oral, Q6H pantoprazole, 40 mg, Intravenous, BID AC sodium chloride, 10 mL, Intravenous, Q12H sodium chloride, 3 mL, Intravenous, Q12H vancomycin (dosing per levels), , Does not apply, Daily Pharmacy to dose vancomycin, sodium chloride, 9 mL/hr, Last Rate: 9 mL/hr (04/29/20 1608) Vital Signs: Blood pressure 177/78, pulse (!) 121, temperature 98.8 ??F (37.1 ??C), temperature source Oral, resp. rate 18, height 170.2 cm (67 ), weight 122 kg (268 lb), SpO2 94 %. Flowsheet Rows First Filed Value Admission Height 170.2 cm (67 ) Documented at 04/27/2020 2355 Admission Weight 125 kg (275 lb) Documented at 04/27/2020 2355 05/02 0701 - 05/03 0700 In: 1040 [P.O.:1040] Out: 100 [Urine:100] Physical Exam: General Appearance: NAD, alert and cooperative, Ox3. CONFUSION RESOLVED Eyes: PER, conjunctivae and sclerae normal, no icterus Lungs: respirations regular and unlabored, no crepitus, clear to auscultation Heart/CV: regular rhythm & normal rate, no murmur, no gallop, no rub and no edema Abdomen: not distended, soft, non-tender, no masses, bowel sounds present Skin: No rash, Warm and dry. AVF Radiology: Labs: Results from last 7 days Lab Units 05/03/20 0955 05/01/20 0907 04/30/20 0759 WBC 10*3/mm3 9.65 7.58 9.44 HEMOGLOBIN g/dL 7.6* 5.5* 6.3* HEMATOCRIT % 24.0* 17.2* 19.6* PLATELETS 10*3/mm3 372 269 292 Results from last 7 days Lab Units 05/01/20 0907 04/30/20 0759 04/29/20 1533 04/29/20 0618 04/28/20 0016 SODIUM mmol/L 134* 131* 132* 134* 129* POTASSIUM mmol/L 4.1 4.0 4.2 4.1 4.3 CHLORIDE mmol/L 95* 92* 95* 92* 80* CO2 mmol/L 20.0* 22.0 19.0* 20.0* 19.0* BUN mg/dL 81* 64* 48* 98* 109* CREATININE mg/dL 10.03* 7.69* 5.03* 10.55* 14.39* CALCIUM mg/dL 8.6 8.9 9.0 9.1 9.3 PHOSPHORUS mg/dL -- 5.7* -- -- -- MAGNESIUM mg/dL -- -- -- 2.3 2.4 ALBUMIN g/dL -- 3.30* -- 3.50 3.60 Results from last 7 days Lab Units 05/01/20 0907 GLUCOSE mg/dL 195* Results from last 7 days Lab Units 04/30/20 0759 ALK PHOS U/L 71 BILIRUBIN mg/dL 0.2 ALT (SGPT) U/L 26 AST (SGOT) U/L 16 Results from last 7 days Lab Units 04/28/20 1143 PH, ARTERIAL pH units 7.277* PO2 ART mm Hg 88.1 PCO2, ARTERIAL mm Hg 46.8* HCO3 ART mmol/L 21.8 Results from last 7 days Lab Units 04/29/20 0144 COLOR UA Yellow CLARITY UA Clear PH, URINE <=5.0 SPECIFIC GRAVITY, URINE 1.017 GLUCOSE UA 100 mg/dL (Trace)* KETONES UA Negative BILIRUBIN UA Negative PROTEIN UA >=300 mg/dL (3+)* BLOOD UA Negative LEUKOCYTES UA Negative NITRITE UA Negative Estimated Creatinine Clearance: 11.5 mL/min (A) (by C-G formula based on SCr of 10.03 mg/dL (H)). Assessment Sepsis (CMS/HCC) KIM (nonalcoholic steatohepatitis) History of liver transplant (CMS/HCC) Immunosuppression (CMS/HCC) Type 2 diabetes mellitus (CMS/HCC) Altered mental state ESRD (end stage renal disease) (CMS/HCC) Hyponatremia Discitis Epidural abscess Leukocytosis Impression: ESRD. ANEMIA. GI BLEED. Recommendations: HD 05/04/20 Hilton Hamm MD 05/03/20 12:08 EDT * Humza Valadez, GEOGRAPHY INSTRUCTOR - 05/03/2020 10:14 AM EDT GI Daily Progress Note Subjective: Chief Complaint: F/u history of liver transplant; gastrointestinal bleeding Leoncio Rollins is a 45 y.o. male consulted to gastroenterology initially given his history of livertransplant but has since been reconsulted for new onset gastrointestinal bleeding. Patient notes that he had a period of constipation while admitted to hospital but that his bowels began moving 2 days ago and that he has since had approximately 10 loose melanotic stools per nursing report. Patient also notes that since onset of melena has been experiencing worsening shortness of breath and weakness. Patient does note he has a history of gastrointestinal bleeding with ulcers as well as esophageal varices historically. Does not report any abdominal pain, nausea, vomiting, chest pain, or fever/chills/night sweats. Denies any NSAID use or anticoagulation use. Giving exacerbating factors. Reports testicular and back pain at time of exam. Review of Systems Constitutional: Positive for activity change, appetite change and fatigue. Negative for chills, diaphoresis, fever and unexpected weight change. HENT: Negative for sore throat, trouble swallowing and voice change. Eyes: Negative. Respiratory: Positive for shortness of breath. Negative for apnea, cough, choking, chest tightness,wheezing and stridor. Cardiovascular: Negative for chest pain, palpitations and leg swelling. Gastrointestinal: Positive for blood in stool and constipation. Negative for abdominal distention, abdominal pain, anal bleeding, diarrhea, nausea, rectal pain and vomiting. Endocrine: Negative. Genitourinary: Positive for testicular pain. Musculoskeletal: Negative. Skin: Negative for color change, pallor, rash and wound. Allergic/Immunologic: Negative. Neurological: Negative. Hematological: Negative for adenopathy. Does not bruise/bleed easily. Psychiatric/Behavioral: Negative. All other systems reviewed and are negative. Objective: BP 176/75 (BP Location: Right leg, Patient Position: Lying) Pulse (!) 130 Temp 99.6 ??F (37.6 ??C) (Oral) Resp 18 Ht 170.2 cm (67 ) Wt 122 kg (268 lb) SpO2 94% BMI 41.97 kg/m?? Physical Exam Vitals signs and nursing note reviewed. Constitutional: General: He is not in acute distress. Appearance: Normal appearance. He is obese. He is not ill-appearing or toxic-appearing. HENT: Head: Normocephalic and atraumatic. Mouth/Throat: Mouth: Mucous membranes are moist. Pharynx: Oropharynx is clear. No oropharyngeal exudate. Eyes: General: No scleral icterus. Extraocular Movements: Extraocular movements intact. Conjunctiva/sclera: Conjunctivae normal. Pupils: Pupils are equal, round, and reactive to light. Cardiovascular: Rate and Rhythm: Regular rhythm. Tachycardia present. Pulses: Normal pulses. Heart sounds: Normal heart sounds. No murmur. No friction rub. No gallop. Pulmonary: Effort: Pulmonary effort is normal. No respiratory distress. Breath sounds: Normal breath sounds. No stridor. No wheezing, rhonchi or rales. Abdominal: General: Abdomen is flat. Bowel sounds are normal. There is no distension. Palpations: Abdomen is soft. There is no mass. Tenderness: There is no abdominal tenderness. There is no guarding or rebound. Hernia: No hernia is present. Genitourinary: Scrotum/Testes: Normal. Rectum: Guaiac result positive. Skin: General: Skin is warm and dry. Capillary Refill: Capillary refill takes less than 2 seconds. Neurological: Mental Status: He is alert and oriented to person, place, and time. Psychiatric: Mood and Affect: Mood normal. Behavior: Behavior normal. Thought Content: Thought content normal. Judgment: Judgment normal. Lab I have personally reviewed most recent cardiac tracings, lab results, microbiology results, pathology results and radiology images and interpretations and agree with findings. Lab Results Component Value Date WBC 7.58 05/01/2020 HGB 5.5 (C) 05/01/2020 HGB 6.3 (C) 04/30/2020 HGB 7.4 (L) 04/29/2020 MCV 99.4 (H) 05/01/2020 PLT 269 05/01/2020 Lab Results Component Value Date GLUCOSE 195 (H) 05/01/2020 BUN 81 (H) 05/01/2020 CREATININE 10.03 (H) 05/01/2020 EGFRIFNONA 6 (L) 05/01/2020 EGFRIFAFRI 05/01/2020 Comment: <15 Indicative of kidney failure. BCR 8.1 05/01/2020 NA 134 (L) 05/01/2020 K 4.1 05/01/2020 CO2 20.0 (L) 05/01/2020 CALCIUM 8.6 05/01/2020 ALBUMIN 3.30 (L) 04/30/2020 ALKPHOS 71 04/30/2020 BILITOT 0.2 04/30/2020 ALT 26 04/30/2020 AST 16 04/30/2020 COVID19 Date Value Ref Range Status 04/28/2020 Not Detected Not Detected - Ref. Range Final Ct Abdomen Pelvis Without Contrast Result Date: 04/28/2020 INDICATION: Post liver transplant with generalized abdominal fullness abdominal pain and low back pain with shortness of breath. TECHNIQUE: CT of the abdomen and pelvis without contrast. Coronal and sagittal reconstructions were obtained. Radiation dose reduction techniques included automated exposure control or exposure modulation based on body size. Radiation audit for number of CT and nuclear cardiology exams performed in the last year: 0. COMPARISON: None available. FINDINGS: Lung bases: See separate CT chest today Abdomen: Study is limited by lack of IV contrast media. Stomach is very distended with fluid. Please correlate for clinical evidence of gastroparesis or gastric outlet obstruction. There are multiple right upper quadrant surgical clips consistent with liver transplantation.Noncontrast study does not accurately evaluate liver parenchyma. The patient's post cholecystectomy. Unenhanced pancreas is unremarkable. There are probably some left upper quadrant varices. The adrenal glands are unremarkable. There are are no intrarenal calculi. There is bilateral renal parenchymal thinning. There is no hydronephrosis. There is mild perinephric stranding. There is no evidence for abdominal aortic aneurysm. The appendix is radiographically unremarkable. There is no evidence for small bowel obstruction. There is a fat-containing midline anterior abdominal wall hernia with a broad neck that measures about 6.8 cm diameter. The hernia sac is about 11 x 9 cm mL and SI dimensionand 4 cm AP dimension. There is colonic gas and stool prominence of the colon but no obstruction point. Pelvis: The bladder is partly decompressed and unremarkable. There is a small fat-containing right inguinal hernia. There is no free fluid in the pelvis. There is no free intraperitoneal air. 1. Findings consistent with previous liver transplant. 2. Marked distention of the stomach with fluid. Correlate for clinical evidence of gastroparesis versus gastric outlet obstruction. 3. There is a fat-containing anterior abdominal wall incisional hernia sac without bowel obstruction. 4. The appendix is radiographically unremarkable. 5. There our probably some left upper quadrant varices. Study is limited by lack of IV contrast media. Signer Name: Heather Fried MD Signed: 04/28/2020 6:41 AM Workstation Name: [facility] Ct Chest Without Contrast Result Date: 04/28/2020 INDICATION: Liver transplant with generalized abdominal pain low back pain and shortness of breath.ER evaluation TECHNIQUE: CT of the chest without contrast. Coronal and sagittal reconstructions were obtained. Radiation dose reduction techniques included automated exposure control or exposure modulation based on body size. Radiation audit for number of CT and nuclear cardiology exams performed in the last year: 0. COMPARISON: Earlier chest x-ray today FINDINGS: Study is limited by lack of IV contrast media. There is no axillary lymphadenopathy. The esophagus is patulous with wall thickening diffusely and fluid-filled/air-fluid level. Visualized stomach is very distended with fluid. See theabdomen dictation. There is evidence for old granulomatous disease. There is no lymphadenopathy in the mediastinum or debbi by measurement criteria on this noncontrast exam. Heart size is top normal. There is no definite pleural effusion. There is apparently left pleural thickening and areas of parenchymal scarring. There is distortion of parenchymal architecture in the left upper lobe and left upper hilum which is probably chronic. Comparison to any interval outside chest CT is recommended to confirm stability. There is no pneumothorax. There is no acute infiltrate. There is no congestive failure. 1. The esophagus is patulous with circumferential wall thickening. Its distended with fluid and air-fluid level. The stomach is distended. See the separate abdomen pelvis dictation. 2. Apparent left pleural thickening and parenchymal scarring with distortion of the left superior hilum. A believe these findings are chronic but recommend comparison to outside chest CT to confirm long-term stability. Please correlate with any history. Study is limited by lack of IV contrast media. 3. Otherwise no active disease is seen in the chest. Signer Name: Heather Fried MD Signed: 04/28/2020 6:34 AM Workstation Name: [facility] Ct Lumbar Spine Without Contrast Result Date: 04/28/2020 INDICATION: Pain and short of breath. Liver transplant patient TECHNIQUE: CT of the lumbar spine without contrast. Coronal and sagittal reconstructions were obtained. Radiation dose reduction techniques included automated exposure control or exposure modulation based on body size. Radiation audit for number of CT and nuclear cardiology exams performed in the last year: 0. COMPARISON: None FINDINGS: There is 3 to 4 mm of grade 1 anterolisthesis of L5 on S1 secondary to chronic L5 pars defects. There is loss of disc height, vacuum disc formation, endplate spondylosis at the inferior endplate ofL5. There is irregularity of the inferior endplate of L5 some of which is sclerotic and some of which is nonsclerotic. This could be due to Schmorl's node formation/degenerative disc disease but discitis is not excluded. There are tiny air densities within the canal posterior to L4-5 and L5-S1. Scan be seen in the setting of vacuum disc extrusion but the amount seen is more diffuse than typical. An alternate consideration in an immunocompromised patient with back pain is epidural abscess/discitis and osteomyelitis. Recommend correlation with an MRI lumbar spine with and without contrast if the patient is candidate. Otherwise there is no acute fracture or bone destruction. At T11-12 is facetdegenerative change with mild to mass effect on the thecal sac. At T12-L1, no bony canal or foramina l compromise. At L1-2, no canal or foraminal compromise. At L2-3, no canal or foraminal compromise.At L3-4, no canal or foraminal compromise. At L4-5, there is a posterior disc bulge and mild facet degenerative change. Air bubbles are seen in the canal. There is at least some effacement of the thecal sac by the disc bulge. There is likely mild foraminal narrowing. L5-S1 as discussed above. Thereis no bony canal stenosis. Pars defects accounting for the anterolisthesis. There is bilateral bonyforaminal narrowing. 1. Grade 1 anterolisthesis of L5 on S1 secondary to chronic L5 pars defects. 2. There are air densities within the canal for 5 L5-S1 level. This can be seen in the setting of extruded vacuum disc formation but possibility of an epidural abscess is in the differential and should be excluded with MRIlumbar spine with and without contrast. Additionally there is endplate irregularity at the inferiorendplate of L5 could be due to severe degenerative disc disease but alternate diagnosis includes discitis. Signer Name: Heather Fried MD Signed: 04/28/2020 6:28 AM Workstation Name: [id number] Mri Lumbar Spine Without Contrast Result Date: 04/29/2020 EXAMINATION: MRI LUMBAR SPINE WO CONTRAST-04/28/2020: INDICATION: Lower back pain, evaluate for epidural abscess. Positive changes on CT scan; M54.41-Lumbago with sciatica, right side; M46.46-Discitis, unspecified, lumbar region; N17.9- Acute kidney failure, unspecified; Z99.2-Dependence on renal dialysis; D72.825- Bandemia, low back pain. TECHNIQUE: Routine multiplanar imaging was obtained of the lumbar spine without the administration of Gadolinium contrast. COMPARISON: CT scan of the lumbar spine dated 04/28/2020. FINDINGS: There is abnormality identified within the L5/S1 level with fluid identified in the disc space and abnormal fluid and signal intensity seen posterior to the L5 level. Bilateral pars defects identified of the L5/S1 level with mild anterolisthesis identified of L5 on S1. There is mass effect on the anterior aspect of the thecal sac. Findings highly concerning for an epidural abscess. There is narrowing identified of the spinal canal. The abnormal fluid collection measures approximately 4.3 x 1.4 x 1.1 cm in its largest dimension. There is signal changes identifiedwithin the inferior endplate of L5 and superior endplate of S1 suggesting osteomyelitis. There are degenerative changes identified of the L4/L5 level. No abnormal mass or fluid collection seen withinthe paraspinal muscles. The remainder of the disc spaces are preserved. Normal signal intensity within the conus. There are degenerative changes seen of the L4/L5 and L5/S1 levels with osteomyelitis and discitis seen of L5 and S1 with fluid collection identified in the epidural space concerning for an epidural abscess. Clinical correlation is needed. There is mass effect on the thecal sac with narrowing and mass effect on the nerve roots bilaterally. E: 04/28/2020 This report was finalized on 04/29/2020 9:[address] Abbie Carlson MD. Xr Chest 1 View Result Date: 04/28/2020 CR Chest 1 Vw INDICATION: Weakness and dizziness on arrival COMPARISON: None available. FINDINGS: Single portable AP view(s) of the chest. The heart and mediastinal contours are normal. The lungs areclear. No pneumothorax or pleural effusion. No acute cardiopulmonary findings. Signer Name: Gabino Herr MD Signed: 04/28/2020 1:58 AM Workstation Name: [id number] Fl C Arm During Surgery Result Date: 04/30/2020 EXAMINATION: FL C ARM DURING SURGERY - 04/29/2020 INDICATION: M54.41-Lumbago with sciatica, right side; M46.46-Discitis, unspecified, lumbar region; N17.9- Acute kidney failure, unspecified; Z99.2-Dependence on renal dialysis; D72.825- Bandemia; G06.1-Intraspinal abscess and granuloma. Lumbar laminectomy. TECHNIQUE: Intraoperative fluoroscopy for improved localization and treatment planning. COMPARISON: None. FINDINGS: Intraoperative fluoroscopy with total fluoroscopic time usage 10 seconds and 1image saved during lumbar laminectomy. Intraoperative fluoroscopy was utilized during lumbar laminectomy. DICTATED: 04/29/2020 EDITED/ls :04/29/2020 This report was finalized on 04/30/2020 6:[address] Elpidio Dyer. Blood Culture Date Value Ref Range Status 04/28/2020 No growth at 5 days Final Wound Culture Date Value Ref Range Status 04/29/2020 Rare Staphylococcus, coagulase negative (A) Final Assessment: Sepsis (CMS/HCC) KIM (nonalcoholic steatohepatitis) History of liver transplant (CMS/HCC) Immunosuppression (CMS/HCC) Type 2 diabetes mellitus (CMS/HCC) Altered mental state ESRD (end stage renal disease) (CMS/HCC) Hyponatremia Discitis Epidural abscess Leukocytosis Gastrointestinal bleeding, with melena, active History of Kim cirrhosis. History of liver transplant in 2018 Immunosuppressed. End-stage renal disease on hemodialysis Plan: >>> Patient has a suspected upper gastrointestinal bleed with melena. Has history of ulcers and esophageal varices. >>> Recommend EGD tomorrow to further evaluate source of gastrointestinal bleeding. >>> N.p.o. at midnight >>> Obtain informed consent for esophagogastroduodenoscopy >>> Continue to trend H&H and transfuse for hemoglobins of 7 or symptomatic anemia perprotocol. >>> Patient is currently on Monday dialysis; will need to arrange timing for procedure and dialysis. >>> Continue PPI Humza Valadez APRN 05/03/20 10:14 EDT Cosigned by Dewey Vidal MD at 05/03/2020 7:50 PM EDT Associated attestation - Dewey Vidal MD - 05/03/2020 7:50 PM EDT I have reviewed this documentation and agree. * Sussy Martini PA-C - 05/03/2020 10:09 AM EDT NEUROSURGERY PROGRESS NOTE Interval History: POD #4: L5 laminectomy for removal epidural abscess No events overnight. Patient continues to complain of lower extremity spasms. Up to ambulate to therestroom. Was able to sit in bedside chair for a very short period yesterday. Continued complaints of constipation. Plans to undergo EGD tomorrow to evaluate source of GI bleeding Vital Signs Blood pressure 176/75, pulse (!) 130, temperature 99.6 ??F (37.6 ??C), temperature source Oral, resp. rate 18, height 170.2 cm (67 ), weight 122 kg (268 lb), SpO2 94 %. Physical Exam: Patient is alert, oriented no acute distress Lower extremity strength is equal and intact bilaterally Sensation is intact throughout Mild serosanguineous drainage on lumbar dressing, otherwise incision is intact without evidence of dehiscence or infection Results Review: I/O last 3 completed shifts: In: 1040 [P.O.:1040] Out: 100 [Urine:100] No intake/output data recorded. Assessment/Plan: 1. Acute right-sided low back pain with right-sided sciatica 2. Discitis of lumbar region 3. Acute renal failure on dialysis ([facility]/HCC) 4. Bandemia 5. Abscess in epidural space of lumbar spine Increase muscle relaxers due to lower extremity pain/spasms if OK with hospitalist. Stable from a neurosurgical standpoint. Sussy Martini PA-C 05/03/20 10:09 EDT Cosigned by Yinka Garnica MD at 05/03/2020 8:24 PM EDT Associated attestation - Yinka Garnica MD - 05/03/2020 8:24 PM EDT I have reviewed this documentation and agree. * Odette Grace MD - 05/03/2020 9:27 AM EDT Images from the original note were not included. [facility] Medicine Services PROGRESS NOTE Patient Name: Leoncio Rollins : 1975 Date of Admission: 04/28/2020 Primary Care Physician: Edgar Fournier MD Subjective Subjective CC: Back pain HPI: Tmax 99.8 In the past 24 hrs he has had 10 tarry stools (after 9 days constip). Refused lab draws yest. Today, complaining of back spasms; RN notes intermittent confusion. He hopes to be home soon. Review of Systems Difficulty walking due to pain No chest pain or dyspnea BP typically up before HD days Interested in change renal doctor No abd pain; multiple BMs. Objective Objective Vital Signs: Temp: [98.5 ??F (36.9 ??C)-99.8 ??F (37.7 ??C)] 98.8 ??F (37.1 ??C) Heart Rate: [101-130] 121 Resp: [16-18] 18 BP: (170-198)/(67-108) 177/78 Physical Exam: Constitutional: alert, pleasant NAD in bed. Respiratory: Clear to auscultation bilaterally, respiratory effort normal on room air Cardiovascular: rrr Gastrointestinal: normal bowel sounds, soft, nontender, mildly distended Musculoskeletal: No bilateral ankle edema, Psychiatric: Appropriate affect, cooperative Neurologic: Oriented x 3, HILTON, clear speech Cranial Nerves grossly intact to confrontation, speech clear, sensation in feet intact. Results Reviewed: Results from last 7 days Lab Units 05/03/20 0955 09/18/90604/30/2075804/28/201923 WBC 10*3/mm3 9.65 7.58 9.44 < > -- HEMOGLOBIN g/dL 7.6* 5.5* 6.3* < > -- HEMATOCRIT % 24.0* 17.2* 19.6* < > -- PLATELETS 10*3/mm3 372 269 292 < > -- PROCALCITONIN ng/mL -- -- -- -- 4.48* < > = values in this interval not displayed. Results from last 7 days Lab Units 05/01/20 0904/30/20 07504/29/20 1533 04/29/2018 04/28/20192304/28/20 0016 SODIUM mmol/L 134* 131* 132* 134* -- 129* POTASSIUM mmol/L 4.1 4.0 4.2 4.1 -- 4.3 CHLORIDE mmol/L 95* 92* 95* 92* -- 80* CO2 mmol/L 20.0* 22.0 19.0* 20.0* -- 19.0* BUN mg/dL 81* 64* 48* 98* -- 109* CREATININE mg/dL 10.03* 7.69* 5.03* 10.55* -- 14.39* GLUCOSE mg/dL 195* 204* 127* 196* -- 285* CALCIUM mg/dL 8.6 8.9 9.0 9.1 -- 9.3 ALT (SGPT) U/L -- 26 -- 33 -- 48* AST (SGOT) U/L -- 16 -- 17 -- 24 TROPONIN T ng/mL -- -- -- -- 0.126* 0.154* Estimated Creatinine Clearance: 11.5 mL/min (A) (by C-G formula based on SCr of 10.03 mg/dL (H)). Microbiology Results Abnormal Procedure Component Value - Date/Time Blood Culture - Blood, Arm, Right [[id number]] Collected: 04/28/20 0650 Lab Status: Final result Specimen: Blood from Arm, Right Updated: 05/03/20 0800 Blood Culture No growth at 5 days Blood Culture - Blood, Wrist, Right [[id number]] Collected: 04/28/20 0701 Lab Status: Final result Specimen: Blood from Wrist, Right Updated: 05/03/20 0800 Blood Culture No growth at 5 days Tissue / Bone Culture - Tissue, Back, Lower [[id number]] Collected: 04/29/201914 Lab Status: Final result Specimen: Tissue from Back, Lower Updated: 05/02/20 0857 Tissue Culture No growth at 3 days Gram Stain Rare (1+) WBCs seen No organisms seen Anaerobic Culture - Tissue, Back, Lower [[id number]] Collected: 04/29/201914 Lab Status: Preliminary result Specimen: Tissue from Back, Lower Updated: 05/02/20 0716 Anaerobic Culture No anaerobes isolated at 3 days Anaerobic Culture - Wound, Spine, Lumbar [[id number]] Collected: 04/29/201842 Lab Status: Preliminary result Specimen: Wound from Spine, Lumbar Updated: 05/02/20 0716 Anaerobic Culture No anaerobes isolated at 3 days Wound Culture - Wound, Spine, Lumbar [[id number]] (Abnormal) Collected: 04/29/201842 Lab Status: Final result Specimen: Wound from Spine, Lumbar Updated: 05/01/20 0812 Wound Culture Rare Staphylococcus, coagulase negative Gram Stain No WBCs or organisms seen AFB Culture - Tissue, Back, Lower [[id number]] Collected: 04/29/201914 Lab Status: Preliminary result Specimen: Tissue from Back, Lower Updated: 04/30/20 1225 AFB Stain No acid fast bacilli seen on concentrated smear MRSA Screen, PCR (Inpatient) - Swab, Nares [[id number]] (Normal) Collected: 04/29/20 0150 Lab Status: Final result Specimen: Swab from Nares Updated: 04/29/20 0912 MRSA PCR Negative Narrative: MRSA Negative COVID PRE-OP / PRE-PROCEDURE SCREENING ORDER (NO ISOLATION) - Swab, Nasopharynx [[id number]] (Normal) Collected: 04/28/20 1505 Lab Status: Final result Specimen: Swab from Nasopharynx Updated: 04/28/20 1644 Narrative: The following orders were created for panel order COVID PRE-OP / PRE-PROCEDURE SCREENING ORDER (NO ISOLATION) - Swab, Nasopharynx. Procedure Abnormality Status --------- ------ Respiratory Panel PCR w/...[[id number]] Normal Final result Please view results for these tests on the individual orders. 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 Swab in UTM/VTM, 3-4 HR TAT - Swab, Nasopharynx [[id number]] (Normal) Collected: 04/28/20 1505 Lab Status: Final result Specimen: Swab from Nasopharynx Updated: 04/28/20 1644 ADENOVIRUS, PCR Not Detected Coronavirus 229E Not Detected Coronavirus HKU1 Not Detected Coronavirus NL63 Not Detected Coronavirus OC43 Not Detected COVID19 Not Detected Human Metapneumovirus Not Detected Human Rhinovirus/Enterovirus Not Detected Influenza A PCR Not Detected Influenza A H1 Not Detected Influenza A H1 2008 PCR Not Detected Influenza A H3 Not Detected Influenza B PCR Not Detected Parainfluenza Virus 1 Not Detected Parainfluenza Virus 2 Not Detected Parainfluenza Virus 3 Not Detected Parainfluenza Virus 4 Not Detected RSV, PCR Not Detected Bordetella pertussis pcr Not Detected Bordetella parapertussis PCR Not Detected Chlamydophila pneumoniae PCR Not Detected Mycoplasma pneumo by PCR Not Detected Narrative: Fact sheet for providers: https://docs.[employer]/wp-content/uploads/MEY6931-1957-ML4.1-EUA-Provi xqi-Icng-Tsrsl-3.pdf Fact sheet for patients: https://docs.[employer]/wp-content/uploads/YHS8107-4475-SG0.3-ROV-Zskqtl s-Vzzl-Czbkv-1.pdf Imaging Results (Last 24 Hours) No results found for the last 24 hours. I have reviewed the medications: Scheduled Meds:baclofen, 10 mg, Oral, Q6H carBAMazepine, 200 mg, Oral, Nightly cefTRIAXone, 2 g, Intravenous, Q24H cycloSPORINE modified, 50 mg, Oral, BID docusate sodium, 100 mg, Oral, BID entecavir, 0.5 mg, Oral, Weekly epoetin giancarlo/giancarlo-epbx, 20,000 Units, Subcutaneous, 3x Weekly famotidine, 10 mg, Oral, Daily gabapentin, 100 mg, Oral, Nightly hydrALAZINE, 100 mg, Oral, TID insulin detemir, 15 Units, Subcutaneous, Nightly insulin lispro, 0-9 Units, Subcutaneous, TID AC metoprolol tartrate, 100 mg, Oral, Q12H [START ON 05/04/2020] mycophenolate, 250 mg, Oral, Daily mycophenolate, 500 mg, Oral, Nightly NIFEdipine CC, 90 mg, Oral, BID oxyCODONE, 10 mg, Oral, Q6H pantoprazole, 40 mg, Intravenous, BID AC sodium chloride, 10 mL, Intravenous, Q12H sodium chloride, 3 mL, Intravenous, Q12H vancomycin (dosing per levels), , Does not apply, Daily Continuous Infusions:Pharmacy to dose vancomycin, sodium chloride, 9 mL/hr, Last Rate: 9 mL/hr (04/29/20 1608) PRN Meds:.??? acetaminophen OR acetaminophen OR acetaminophen ??? acetaminophen ??? calcium carbonate EX ??? dextrose ??? dextrose ??? glucagon (human recombinant) ??? HYDROcodone-acetaminophen ??? HYDROmorphone ??? HYDROmorphone AND naloxone ??? ondansetron ??? Pharmacy to dose vancomycin ??? sodium chloride ??? sodium chloride ??? temazepam ??? terazosin Assessment/Plan Assessment & Plan Active Hospital Problems Diagnosis POA ??? Sepsis (CMS/HCC) [A41.9] Yes ??? KIM (nonalcoholic steatohepatitis) [K75.81] Unknown ??? History of liver transplant (CMS/HCC) [Z94.4] Not Applicable ??? Immunosuppression (CMS/HCC) [D89.9] Unknown ??? Type 2 diabetes mellitus (CMS/HCC) [E11.9] Unknown ??? Altered mental state [R41.82] Unknown ??? ESRD (end stage renal disease) (CMS/HCC) [N18.6] Unknown ??? Hyponatremia [E87.1] Unknown ??? Discitis [M46.40] Unknown ??? 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] Unknown ??? Leukocytosis [D72.829] Unknown Resolved Hospital Problems No resolved problems to display. Brief Hospital Course to date: Leoncio Rollins is a 45 y.o. male with history of liver transplant 2018 secondary to KIM, ESRD on home dialysis 5 days per week, DM who presents with 1 week of back pain, fever and AMS. Found to havediscitis and epidural abscess on imaging. Severe sepsis (fever, confusion, leukocytosis, lactic acidosis) in setting of immunosuppression Discitis Epidural abscess - MRI L5/S1 with osteomyelitis/discitis and fluid collection concerning for epidural abscess - BCx negative. 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 04/29 L5 laminectomy, epidural abscess I and D. - ID: antibiotic therapy. Continue vancomycin and CTX day 5, - pain control. Will increase IV meds today Acute UGI bleed with anemia - recurrent melena - T and C; got 2u in HD Monday; today hgb is 7.6 despite reported melena x 10 eps. - GI following, likely scope tomorrow - PPI BID started; note med interactions with cellcept; requested Pharm to investigate ; after discussion I have increased Cellcept to 250/500 and discussed w patient. - stop ASA Severe constip - resolved w aggressive mgmt Metabolic encephalopathy - sepsis, uremia, and likely narcotics - Reduced gabapentin dose Liver transplant on chronic immunosuppression - history of transplant at in 2018 for KIM - Will continue cyclosporine and cellcept -- patient's to bring in patient's entecavir - GI and ID consulted ; GI recommends continuing immunosuppressives ?? ESRD Uremia Hyponatremia - Currently on home dialysis 5 days per week , suspect he could decr to tiw wtihout difficulty. Will d/w nephrol. Sees. Dr. Yana uribe. - Nephrology following - epo ?? DM on NPH bid at home - SSI; adjust PRN - add levemir qhs today. ?? Acute pain from lumbar infxn - pt denies chronic opioid use - add scheduled oxycodone - decrease prn dilaudid to .5mg - try sched baclofen DVT prophylaxis: SCDs ?? Disposition: I expect the patient to be discharged TBD. Would be hard to get into SNF due to combination of Medicaid and HD needs. CODE STATUS: Code Status and Medical Interventions: Ordered at: 04/28/20 1125 Code Status: CPR Medical Interventions (Level of Support Prior to Arrest): Full * Hilton Hamm MD - 05/02/2020 2:32 PM EDT LOS: 4 days Patient Care Team: Edgar Fournier MD as PCP - General (Family Medicine) Reason For Visit: F/U ESRD Subjective Review of Systems: Pulm: No soa CV: No CP Objective aspirin, 81 mg, Oral, Daily carBAMazepine, 200 mg, Oral, Nightly cefTRIAXone, 2 g, Intravenous, Q24H cycloSPORINE modified, 50 mg, Oral, BID docusate sodium, 100 mg, Oral, BID entecavir, 0.5 mg, Oral, Weekly epoetin giancarlo/giancarlo-epbx, 20,000 Units, Subcutaneous, 3x Weekly famotidine, 10 mg, Oral, Daily gabapentin, 100 mg, Oral, Nightly hydrALAZINE, 100 mg, Oral, TID insulin detemir, 15 Units, Subcutaneous, Nightly insulin lispro, 0-9 Units, Subcutaneous, TID AC metoprolol tartrate, 100 mg, Oral, Q12H mycophenolate, 250 mg, Oral, BID NIFEdipine CC, 90 mg, Oral, BID polyethylene glycol, 17 g, Oral, BID sodium chloride, 10 mL, Intravenous, Q12H sodium chloride, 3 mL, Intravenous, Q12H vancomycin (dosing per levels), , Does not apply, Daily Pharmacy to dose vancomycin, sodium chloride, 9 mL/hr, Last Rate: 9 mL/hr (04/29/20 1608) Vital Signs: Blood pressure 159/72, pulse (!) 121, temperature 98.2 ??F (36.8 ??C), temperature source Oral, resp. rate 17, height 170.2 cm (67 ), weight 122 kg (268 lb), SpO2 94 %. Flowsheet Rows First Filed Value Admission Height 170.2 cm (67 ) Documented at 04/27/2020 2355 Admission Weight 125 kg (275 lb) Documented at 04/27/2020 2355 05/01 0701 - 05/02 0700 In: 1560 [P.O.:480] Out: 1680 [Drains:40] Physical Exam: General Appearance: NAD, alert and cooperative, CONFUSED Eyes: PER, conjunctivae and sclerae normal, no icterus Lungs: respirations regular and unlabored, no crepitus, clear to auscultation Heart/CV: regular rhythm & normal rate, no murmur, no gallop, no rub and no edema Abdomen: not distended, soft, non-tender, no masses, bowel sounds present Skin: No rash, Warm and dry. AVF Radiology: Labs: Results from last 7 days Lab Units 05/01/20 0907 04/30/20 0759 04/29/20 1746 04/29/20 0618 WBC 10*3/mm3 7.58 9.44 -- 11.27* HEMOGLOBIN g/dL 5.5* 6.3* 7.4* 7.8* HEMATOCRIT % 17.2* 19.6* 23.0* 23.9* PLATELETS 10*3/mm3 269 292 -- 285 Results from last 7 days Lab Units 05/01/20 0907 04/30/20 0759 04/29/20 1533 04/29/20 0618 04/28/20 0016 SODIUM mmol/L 134* 131* 132* 134* 129* POTASSIUM mmol/L 4.1 4.0 4.2 4.1 4.3 CHLORIDE mmol/L 95* 92* 95* 92* 80* CO2 mmol/L 20.0* 22.0 19.0* 20.0* 19.0* BUN mg/dL 81* 64* 48* 98* 109* CREATININE mg/dL 10.03* 7.69* 5.03* 10.55* 14.39* CALCIUM mg/dL 8.6 8.9 9.0 9.1 9.3 PHOSPHORUS mg/dL -- 5.7* -- -- -- MAGNESIUM mg/dL -- -- -- 2.3 2.4 ALBUMIN g/dL -- 3.30* -- 3.50 3.60 Results from last 7 days Lab Units 05/01/20 0907 GLUCOSE mg/dL 195* Results from last 7 days Lab Units 04/30/20 0759 ALK PHOS U/L 71 BILIRUBIN mg/dL 0.2 ALT (SGPT) U/L 26 AST (SGOT) U/L 16 Results from last 7 days Lab Units 04/28/20 1143 PH, ARTERIAL pH units 7.277* PO2 ART mm Hg 88.1 PCO2, ARTERIAL mm Hg 46.8* HCO3 ART mmol/L 21.8 Results from last 7 days Lab Units 04/29/20 0144 COLOR UA Yellow CLARITY UA Clear PH, URINE <=5.0 SPECIFIC GRAVITY, URINE 1.017 GLUCOSE UA 100 mg/dL (Trace)* KETONES UA Negative BILIRUBIN UA Negative PROTEIN UA >=300 mg/dL (3+)* BLOOD UA Negative LEUKOCYTES UA Negative NITRITE UA Negative Estimated Creatinine Clearance: 11.5 mL/min (A) (by C-G formula based on SCr of 10.03 mg/dL (H)). Assessment Sepsis (CMS/HCC) KIM (nonalcoholic steatohepatitis) History of liver transplant (CMS/HCC) Immunosuppression (CMS/HCC) Type 2 diabetes mellitus (CMS/HCC) Altered mental state ESRD (end stage renal disease) (CMS/HCC) Hyponatremia Discitis Epidural abscess Leukocytosis Impression: ESRD. SEVERE ANEMIA AND S/P TRANSFUSION. HEME + STOOL. Recommendations: EPO. NEXT HD LIKELY 05/04/20. CONSIDER GI CONSULT. Hilton Hamm MD 05/02/20 14:32 EDT * Tim Coppola PA-C - 05/02/2020 11:21 AM EDT HOD# : 4 No events last night Patient continues to improve as far as his back pain goes but still having significant amount of pain. Patient unable to ambulate independently but was able to get up to bedside commode to bedside chair today. Patient denies any overt weakness but is limited secondary to his back pain. Patient states he is having some muscle spasms. I will discuss with hospitalist muscle relaxants. Patient's main complaint today is constipation Sepsis (CMS/HCC) KIM (nonalcoholic steatohepatitis) History of liver transplant (CMS/HCC) Immunosuppression (CMS/HCC) Type 2 diabetes mellitus (CMS/HCC) Altered mental state ESRD (end stage renal disease) (CMS/HCC) Hyponatremia Discitis Epidural abscess Leukocytosis Temp: [97.8 ??F (36.6 ??C)-100.9 ??F (38.3 ??C)] 98.2 ??F (36.8 ??C) Heart Rate: [94-121] 121 Resp: [16-17] 17 BP: (122-176)/(69-98) 159/72 I/O last 3 completed shifts: In: 1560 [P.O.:480; Blood:1080] Out: 1780 [Urine:100; Drains:40; Other:1640] No intake/output data recorded. Vital signs were reviewed and documented in the chart EXAM Body mass index is 41.97 kg/m??. Patient appeared in good neurologic function with normal comprehension CN grossly intact Moves all extremities to command Exam limited secondary to patient's back pain but is able to pick his legs up with proximal hip flexion with adequate strength dorsiflexion plantar flexion are equal bilaterally DIAGNOSIS 1. Acute right-sided low back pain with right-sided sciatica 2. Discitis of lumbar region 3. Acute renal failure on dialysis ([facility]) 4. Bandemia 5. Abscess in epidural space of lumbar spine PLAN Patient continuing to look well from a neurosurgical standpoint. Patient needs to have medical comorbidities optimized and consider rehabilitation Cosigned by Yinka Garnica MD at 05/02/2020 7:55 PM EDT Associated attestation - Yinka Garnica MD - 05/02/2020 7:55 PM EDT I have reviewed this documentation and agree. * Odette Grace MD - 05/02/2020 7:34 AM EDT Images from the original note were not included. [facility] Medicine Services PROGRESS NOTE Patient Name: Leoncio Rollins : 1975 Date of Admission: 04/28/2020 Primary Care Physician: Edgar Fournier MD Subjective Subjective CC: Back pain HPI: Tmax 100.9 last night. No BM yet. Pain has been uncontrolled. Review of Systems General: denies fevers or chills CV: denies chest pain Resp: stable no dyspnea Abd: denies abd pain, nausea Objective Objective Vital Signs: Temp: [97.5 ??F (36.4 ??C)-100.9 ??F (38.3 ??C)] 100.4 ??F (38 ??C) Heart Rate: [94-132] 104 Resp: [16] 16 BP: (122-176)/(62-98) 156/73 Physical Exam: Constitutional: alert, eating lunch, NAD Respiratory: Clear to auscultation bilaterally, respiratory effort normal on room air Cardiovascular: rrr Gastrointestinal: normal bowel sounds, soft, nontender, mildly distended Musculoskeletal: No bilateral ankle edema, cries out w pain when I move his R leg. Psychiatric: Appropriate affect, cooperative Neurologic: Oriented x 3, strength could not test LEs due to pain w movement. Cranial Nerves grossly intact to confrontation, speech clear, sensation in feet intact. Results Reviewed: Results from last 7 days Lab Units 05/01/20 0904/30/20 07504/29/20 1746 04/29/2061704/28/201923 WBC 10*3/mm3 7.58 9.44 -- 11.27* -- HEMOGLOBIN g/dL 5.5* 6.3* 7.4* 7.8* -- HEMATOCRIT % 17.2* 19.6* 23.0* 23.9* -- PLATELETS 10*3/mm3 269 292 -- 285 -- PROCALCITONIN ng/mL -- -- -- -- 4.48* Results from last 7 days Lab Units 05/01/20 0904/30/20 07504/29/20 1533 04/29/20 0618 04/28/20 1924 04/28/20 0016 SODIUM mmol/L 134* 131* 132* 134* -- 129* POTASSIUM mmol/L 4.1 4.0 4.2 4.1 -- 4.3 CHLORIDE mmol/L 95* 92* 95* 92* -- 80* CO2 mmol/L 20.0* 22.0 19.0* 20.0* -- 19.0* BUN mg/dL 81* 64* 48* 98* -- 109* CREATININE mg/dL 10.03* 7.69* 5.03* 10.55* -- 14.39* GLUCOSE mg/dL 195* 204* 127* 196* -- 285* CALCIUM mg/dL 8.6 8.9 9.0 9.1 -- 9.3 ALT (SGPT) U/L -- 26 -- 33 -- 48* AST (SGOT) U/L -- 16 -- 17 -- 24 TROPONIN T ng/mL -- -- -- -- 0.126* 0.154* Estimated Creatinine Clearance: 11.5 mL/min (A) (by C-G formula based on SCr of 10.03 mg/dL (H)). Microbiology Results Abnormal Procedure Component Value - Date/Time Anaerobic Culture - Tissue, Back, Lower [[id number]] Collected: 04/29/201914 Lab Status: Preliminary result Specimen: Tissue from Back, Lower Updated: 05/02/20 0716 Anaerobic Culture No anaerobes isolated at 3 days Anaerobic Culture - Wound, Spine, Lumbar [[id number]] Collected: 04/29/201842 Lab Status: Preliminary result Specimen: Wound from Spine, Lumbar Updated: 05/02/20 0716 Anaerobic Culture No anaerobes isolated at 3 days Wound Culture - Wound, Spine, Lumbar [[id number]] (Abnormal) Collected: 04/29/201842 Lab Status: Final result Specimen: Wound from Spine, Lumbar Updated: 05/01/20 0812 Wound Culture Rare Staphylococcus, coagulase negative Gram Stain No WBCs or organisms seen Blood Culture - Blood, Arm, Right [[id number]] Collected: 04/28/20 0650 Lab Status: Preliminary result Specimen: Blood from Arm, Right Updated: 05/01/20 0800 Blood Culture No growth at 3 days Blood Culture - Blood, Wrist, Right [[id number]] Collected: 04/28/20 0701 Lab Status: Preliminary result Specimen: Blood from Wrist, Right Updated: 05/01/20 0800 Blood Culture No growth at 3 days Tissue / Bone Culture - Tissue, Back, Lower [[id number]] Collected: 04/29/201914 Lab Status: Preliminary result Specimen: Tissue from Back, Lower Updated: 05/01/20 0704 Tissue Culture No growth at 2 days Gram Stain Rare (1+) WBCs seen No organisms seen AFB Culture - Tissue, Back, Lower [[id number]] Collected: 04/29/201914 Lab Status: Preliminary result Specimen: Tissue from Back, Lower Updated: 04/30/20 1225 AFB Stain No acid fast bacilli seen on concentrated smear MRSA Screen, PCR (Inpatient) - Swab, Nares [[id number]] (Normal) Collected: 04/29/20 0150 Lab Status: Final result Specimen: Swab from Nares Updated: 04/29/20 09 MRSA PCR Negative Narrative: MRSA Negative COVID PRE-OP / PRE-PROCEDURE SCREENING ORDER (NO ISOLATION) - Swab, Nasopharynx [[id number]] (Normal) Collected: 04/28/20 1505 Lab Status: Final result Specimen: Swab from Nasopharynx Updated: 04/28/20 164 Narrative: The following orders were created for panel order COVID PRE-OP / PRE-PROCEDURE SCREENING ORDER (NO ISOLATION) - Swab, Nasopharynx. Procedure Abnormality Status --------- ------ Respiratory Panel PCR w/...[[id number]] Normal Final result Please view results for these tests on the individual orders. 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 Swab in UTM/VTM, 3-4 HR TAT - Swab, Nasopharynx [[id number]] (Normal) Collected: 04/28/20 1505 Lab Status: Final result Specimen: Swab from Nasopharynx Updated: 04/28/20 164 ADENOVIRUS, PCR Not Detected Coronavirus 229E Not Detected Coronavirus HKU1 Not Detected Coronavirus NL63 Not Detected Coronavirus OC43 Not Detected COVID19 Not Detected Human Metapneumovirus Not Detected Human Rhinovirus/Enterovirus Not Detected Influenza A PCR Not Detected Influenza A H1 Not Detected Influenza A H1 2009 PCR Not Detected Influenza A H3 Not Detected Influenza B PCR Not Detected Parainfluenza Virus 1 Not Detected Parainfluenza Virus 2 Not Detected Parainfluenza Virus 3 Not Detected Parainfluenza Virus 4 Not Detected RSV, PCR Not Detected Bordetella pertussis pcr Not Detected Bordetella parapertussis PCR Not Detected Chlamydophila pneumoniae PCR Not Detected Mycoplasma pneumo by PCR Not Detected Narrative: Fact sheet for providers: https://docs.[employer]/wp-content/uploads/JXI4761-5387-LQ3.1-EUA-Provi kbu-Kulg-Jnqfi-3.pdf Fact sheet for patients: https://docs.[employer]/wp-content/uploads/BAU3367-9140-QJ7.9-WLU-Folaco p-Tyah-Ksdqb-1.pdf Imaging Results (Last 24 Hours) No results found for the last 24 hours. I have reviewed the medications: Scheduled Meds:aspirin, 81 mg, Oral, Daily carBAMazepine, 200 mg, Oral, Nightly cefTRIAXone, 2 g, Intravenous, Q24H cycloSPORINE modified, 50 mg, Oral, BID docusate sodium, 100 mg, Oral, BID entecavir, 0.5 mg, Oral, Weekly epoetin giancarlo/giancarlo-epbx, 20,000 Units, Subcutaneous, 3x Weekly famotidine, 10 mg, Oral, Daily gabapentin, 100 mg, Oral, Nightly hydrALAZINE, 100 mg, Oral, TID insulin detemir, 15 Units, Subcutaneous, Nightly insulin lispro, 0-9 Units, Subcutaneous, TID AC metoprolol tartrate, 100 mg, Oral, Q12H mycophenolate, 250 mg, Oral, BID NIFEdipine CC, 90 mg, Oral, BID polyethylene glycol, 17 g, Oral, BID sodium chloride, 10 mL, Intravenous, Q12H sodium chloride, 3 mL, Intravenous, Q12H vancomycin (dosing per levels), , Does not apply, Daily Continuous Infusions:Pharmacy to dose vancomycin, sodium chloride, 9 mL/hr, Last Rate: 9 mL/hr (04/29/20 1608) PRN Meds:.??? acetaminophen OR acetaminophen OR acetaminophen ??? acetaminophen ??? calcium carbonate EX ??? dextrose ??? dextrose ??? glucagon (human recombinant) ??? HYDROcodone-acetaminophen ??? HYDROmorphone ??? HYDROmorphone AND naloxone ??? ondansetron ??? Pharmacy to dose vancomycin ??? sodium chloride ??? sodium chloride ??? temazepam ??? terazosin Assessment/Plan Assessment & Plan Active Hospital Problems Diagnosis POA ??? Sepsis (CMS/HCC) [A41.9] Yes ??? KIM (nonalcoholic steatohepatitis) [K75.81] Unknown ??? History of liver transplant (CMS/HCC) [Z94.4] Not Applicable ??? Immunosuppression (CMS/HCC) [D89.9] Unknown ??? Type 2 diabetes mellitus (CMS/HCC) [E11.9] Unknown ??? Altered mental state [R41.82] Unknown ??? ESRD (end stage renal disease) (CMS/HCC) [N18.6] Unknown ??? Hyponatremia [E87.1] Unknown ??? Discitis [M46.40] Unknown ??? 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] Unknown ??? Leukocytosis [D72.829] Unknown Resolved Hospital Problems No resolved problems to display. Brief Hospital Course to date: Leoncio Rollins is a 45 y.o. male with history of liver transplant 2018 secondary to KIM, ESRD on home dialysis 5 days per week, DM who presents with 1 week of back pain, fever and AMS. Found to havediscitis and epidural abscess on imaging. Severe sepsis (fever, confusion, leukocytosis, lactic acidosis) in setting of immunosuppression Discitis Epidural abscess - MRI L5/S1 with osteomyelitis/discitis and fluid collection concerning for epidural abscess - BCx negative. 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 04/29 L5 laminectomy, epidural abscess I and D. - ID: antibiotic therapy. Continue vancomycin and CTX day 5, - pain control. Will increase IV meds today Severe constip - aggressive mgmt - change to low residue diet for now Acute anemia - superimposed on chronic anemia of renal disease; mild fe defic - txd two units in HD - unclear cause; down 4g in 4 days. Could be dilutional in part but he is not very edematous - check stool; doubt intravasc hemolysis; no visible bleeding - PPI decreases the effect of mycophenylate; start once daily but stop soon if no bleeding proven. Labs not yet drawn today. Metabolic encephalopathy - sepsis, uremia, and likely narcotics - Reduced gabapentin dose ?? Gastric distention by CT -CT abdomen pelvis; no evidence of small bowel obstruction. - pt eating Liver transplant on chronic immunosuppression - history of transplant at in 2018 for KIM - Will continue cyclosporine and cellcept -- patient's to bring in patient's entecavir - GI and ID consulted ; GI recommends continuing immunosuppressives ?? ESRD Uremia Hyponatremia - Currently on home dialysis 5 days per week , suspect he could decr to tiw wtihout difficulty. Will d/w nephrol. Sees. Dr. Yana uribe. - Nephrology following - epo ?? DM on NPH bid at home - SSI; adjust PRN - add levemir qhs today. ?? Pain; chronic opioid use - seen in the ER 5 times in the last month for his pain. - needs bello review; will d/w pharmacist DVT prophylaxis: SCDs ?? Disposition: I expect the patient to be discharged TBD. Would be hard to get into SNF due to combination of Medicaid and HD needs. CODE STATUS: Code Status and Medical Interventions: Ordered at: 04/28/20 1125 Code Status: CPR Medical Interventions (Level of Support Prior to Arrest): Full * Ginger Murphy RN - 05/01/2020 11:52 AM EDT Continued Stay Note [facility] Patient Name: Leoncio Rollins Today's Date: 05/01/2020 Admit Date: 04/28/2020 Discharge Plan Row Name 05/01/20 1139 Plan Plan TBD Plan Comments Patient currently off the floor in Dialysis. D/w MD in am rounds. Per therapy recs patient would benefit from acute rehab however per their note his mobility is mostly limited to pain. He has declined transfer and gait attempts. During previous discussions w/ patient his goal was to return home. If he was agreeable to rehab he is only eligible for acute rehab r/t his insurance and would need to fully participate w/ PT/OT. [facility] does not accept dialysis patients at this time so patient would be referred to acute rehab facilities out of the area. Plan pending tbd pending progress w/PT and medical course. CM following. Discharge Codes No documentation. Ginger Murphy, JANA * Germán Resendiz [facility] - 05/01/2020 11:40 AM EDT Images from the original note were not included. Pharmacy Consult-Vancomycin Dosing Leoncio Rollins is a 45 y.o. male receiving vancomycin therapy. Indication: sepsis secondary to spine discitis osteomyelitis Consulting Provider: Keara Berg DO ID Consult: Cayetano Rodriguez MD Goal trough: 15-20mcg/ml Current Antimicrobial Therapy Anti-Infectives (From admission, onward) Ordered Dose/Rate Route Frequency Start Stop 05/01/20 1018 cefTRIAXone (ROCEPHIN) 2 g/100 mL 0.9% NS IVPB (MBP) Ordering Provider: Cayetano Rodriguez MD 2 g over 30 Minutes Intravenous Every 24 Hours 05/01/20199905/08/20195804/29/20 1119 vancomycin (VANCOCIN) in iso-osmotic dextrose IVPB 1 g (premix) 200 mL Ordering Provider: Germán Resendiz RPH 1,000 mg over 60 Minutes Intravenous Once 04/29/20 1600 04/29/20 17504/28/20 1131 entecavir (BARACLUDE) tablet 0.5 mg (PATIENT SUPPLIED MED) Ordering Provider: Yinka Garnica MD 0.5 mg Oral Weekly 04/28/20 21304/28/20 1915 vancomycin (dosing per levels) Germán Resendiz RPH reviewed the order on 05/01/20 0917. Ordering Provider: Yinka Garnica MD Does not apply Daily 04/28/20201405/05/20 0859 04/28/20 1130 Pharmacy to dose vancomycin Germán Resendiz RPH reviewed the order on 05/01/20 0918. Ordering Provider: Yinka Garnica MD Does not apply Continuous PRN 04/28/20 1130 05/05/20 1129 04/28/20 0650 vancomycin 2500 mg/500 mL 0.9% NS IVPB ([facility]) Ordering Provider: Kym Garcia DO 20 mg/kg ?? 125 kg over 150 Minutes Intravenous Once 04/28/20 0652 04/28/20 1256 04/28/20 0650 cefTRIAXone (ROCEPHIN) 1 g/100 mL 0.9% NS (MBP) Ordering Provider: Kym Garcia DO 1 g over 30 Minutes Intravenous Once 04/28/20 0652 04/28/20 0859 Allergies Allergies as of 04/27/2020 (Not on File) Labs Results from last 7 days Lab Units 05/01/20 0907 04/30/20 0759 04/29/20 1533 BUN mg/dL 81* 64* 48* CREATININE mg/dL 10.03* 7.69* 5.03* Results from last 7 days Lab Units 05/01/20 0907 04/30/20 0759 04/29/20 0618 WBC 10*3/mm3 7.58 9.44 11.27* Evaluation of Dosing Last Dose Received in the ED/Outside Facility: 2500mg in ED 04/28 Is Patient on Dialysis or 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 Inpatient scheduled for TRSa. Ht - 170.2 cm (67 ) Wt - 122 kg (268 lb) Estimated Creatinine Clearance: 11.5 mL/min (A) (by C-G formula based on SCr of 10.03 mg/dL (H)). Intake & Output (last 3 days) 04/28 701 - 04/29 0704/29 07 - 04/30 0700 04/30 07 - 05/01 0700 05/01 07 - 05/02 0700 P.O. 500 300 I.V. (mL/kg) 310 (2.5) Blood 1080 IV Piggyback 850 Total Intake(mL/kg) 1160 (9.5) 500 (4.1) 300 (2.5) 1080 (8.9) Urine (mL/kg/hr) 25 (0) 0 (0) 175 (0.1) Drains 20 20 Other 2540 1550 Blood 150 Total Output 2565 1720 195 Net -1405 -1220 +105 +1080 Microbiology and Radiology Microbiology Results (last 10 days) Procedure Component Value - Date/Time Tissue / Bone Culture - Tissue, Back, Lower [[id number]] Collected: 04/29/201914 Lab Status: Preliminary result Specimen: Tissue from Back, Lower Updated: 05/01/20 0704 Tissue Culture No growth at 2 days Gram Stain Rare (1+) WBCs seen No organisms seen AFB Culture - Tissue, Back, Lower [[id number]] Collected: 04/29/201914 Lab Status: Preliminary result Specimen: Tissue from Back, Lower Updated: 04/30/201224 AFB Stain No acid fast bacilli seen on concentrated smear Wound Culture - Wound, Spine, Lumbar [[id number]] (Abnormal) Collected: 04/29/20 1843 Lab Status: Final result Specimen: Wound from Spine, Lumbar Updated: 05/01/20 0812 Wound Culture Rare Staphylococcus, coagulase negative Gram Stain No WBCs or organisms seen MRSA Screen, PCR (Inpatient) - Swab, Nares [[id number]] (Normal) Collected: 04/29/20 0150 Lab Status: Final result Specimen: Swab from Nares Updated: 04/29/20 0912 MRSA PCR Negative Narrative: MRSA Negative COVID PRE-OP / PRE-PROCEDURE SCREENING ORDER (NO ISOLATION) - Swab, Nasopharynx [[id number]] (Normal) Collected: 04/28/20 1505 Lab Status: Final result Specimen: Swab from Nasopharynx Updated: 04/28/20 1644 Narrative: The following orders were created for panel order COVID PRE-OP / PRE-PROCEDURE SCREENING ORDER (NO ISOLATION) - Swab, Nasopharynx. Procedure Abnormality Status --------- ------ Respiratory Panel PCR w/...[[id number]] Normal Final result Please view results for these tests on the individual orders. 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 Swab in UTM/VTM, 3-4 HR TAT - Swab, Nasopharynx [[id number]] (Normal) Collected: 04/28/20 1505 Lab Status: Final result Specimen: Swab from Nasopharynx Updated: 04/28/20 1644 ADENOVIRUS, PCR Not Detected Coronavirus 229E Not Detected Coronavirus HKU1 Not Detected Coronavirus NL63 Not Detected Coronavirus OC43 Not Detected COVID19 Not Detected Human Metapneumovirus Not Detected Human Rhinovirus/Enterovirus Not Detected Influenza A PCR Not Detected Influenza A H1 Not Detected Influenza A H1 2009 PCR Not Detected Influenza A H3 Not Detected Influenza B PCR Not Detected Parainfluenza Virus 1 Not Detected Parainfluenza Virus 2 Not Detected Parainfluenza Virus 3 Not Detected Parainfluenza Virus 4 Not Detected RSV, PCR Not Detected Bordetella pertussis pcr Not Detected Bordetella parapertussis PCR Not Detected Chlamydophila pneumoniae PCR Not Detected Mycoplasma pneumo by PCR Not Detected Narrative: Fact sheet for providers: https://docs.[employer].com/wp-content/uploads/DQH9185-4566-WS1.1-Kuldip omb-Fzwj-Qxcin-3.pdf Fact sheet for patients: https://docs.[employer]/wp-content/uploads/TNA6884-0332-NZ6.8-LXY-Gczrcq e-Lzco-Wypbw-1.pdf Blood Culture - Blood, Wrist, Right [[id number]] Collected: 04/28/20 0701 Lab Status: Preliminary result Specimen: Blood from Wrist, Right Updated: 05/01/20 0800 Blood Culture No growth at 3 days Blood Culture - Blood, Arm, Right [[id number]] Collected: 04/28/20 0650 Lab Status: Preliminary result Specimen: Blood from Arm, Right Updated: 05/01/20 0800 Blood Culture No growth at 3 days Evaluation of Level Results from last 7 days Lab Units 05/01/20 0907 04/29/20 0618 VANCOMYCIN RM mcg/mL 21.60 21.50 Assessment/Plan: Pharmacy to dose vancomycin for sepsis. HD patient, goal trough 15 - 20mcg/mL. Patient received loading dose of vancomycin 2500mg (~20mg/kg) IV on 04/28 @ 1026. Patient received HD on 04/28 following loading dose of vancomycin. Received Vancomycin 1000mg once on 04/29 following dialysis. Patient received HD this morning, pre-HD level back above goal at 21.60. Will give Vancomycin 750 mg once today following dialysis. No scheduled dialysis per nephrology at this time, follow closely for additional vancomycin doses. Pharmacy will continue to monitor renal function, cultures and sensitivities, and clinical status to adjust regimen as necessary. ThanksGermán, PharmD, [facility] Small Electric Engine Technician 05/01/2020 11:35 EDT * Cayetano Rodriguez MD - 05/01/2020 10:41 AM EDT [facility] Progress Note Date of Admission: 04/28/2020 Antibiotics: Vancomycin and Zosyn CC: Chief Complaint Patient presents with ??? Back Pain ??? Multiple complaints S: Patient afebrile still with tachycardia and drop in hemoglobin on dialysis today decreasing backpain O: BP 158/80 Pulse 105 Temp 97.5 ??F (36.4 ??C) (Temporal) Resp 16 Ht 170.2 cm (67 ) Wt 122 kg (268 lb) SpO2 94% BMI 41.97 kg/m?? Temp (24hrs), Av.3 ??F (36.8 ??C), Min:97.5 ??F (36.4 ??C), Max:99.1 ??F (37.3 ??C) PE: GENERAL: lethargic in NAD. Pale appearance chronically ill-appearing HEENT: Normocephalic, atraumatic. PERRL. EOMI. No conjunctival injection. No icterus. Oropharynx clear without evidence of thrush or exudate. No evidence of peridontal disease. NECK: Supple without nuchal rigidity LYMPH: No cervical, axillary or inguinal lymphadenopathy. No neck masses HEART: RRR; No murmur, rubs, gallops. LUNGS: Clear to auscultation bilaterally without wheezing, rales, rhonchi. Normal respiratory effort. ABDOMEN: Soft, obese and distended positive bowel sounds. No rebound or guarding. EXT: No cyanosis, clubbing or edema : Normal appearing genitalia without Anders catheter. MSK: decreased ROM of l spine SKIN: Warm and dry without cutaneous eruptions. NEURO: Oriented to PPT. No focal deficits. Mild decreased sensation in feet but good strength 5 outof 5 of upper and lower extremities PSYCHIATRIC: Poor insight and judgement. Cooperative with PE ?? Laboratory Data Results from last 7 days Lab Units 05/01/20 0907 04/30/20 0759 04/29/20 1746 04/29/20 0618 WBC 10*3/mm3 7.58 9.44 -- 11.27* HEMOGLOBIN g/dL 5.5* 6.3* 7.4* 7.8* HEMATOCRIT % 17.2* 19.6* 23.0* 23.9* PLATELETS 10*3/mm3 269 292 -- 285 Results from last 7 days Lab Units 05/01/20 0907 SODIUM mmol/L 134* POTASSIUM mmol/L 4.1 CHLORIDE mmol/L 95* CO2 mmol/L 20.0* BUN mg/dL 81* CREATININE mg/dL 10.03* GLUCOSE mg/dL 195* CALCIUM mg/dL 8.6 Results from last 7 days Lab Units 04/30/20 0759 ALK PHOS U/L 71 BILIRUBIN mg/dL 0.2 ALT (SGPT) U/L 26 AST (SGOT) U/L 16 Estimated Creatinine Clearance: 11.5 mL/min (A) (by C-G formula based on SCr of 10.03 mg/dL (H)). Microbiology: Blood cultures negative to date Radiology: Imaging Results (Last 24 Hours) Procedure Component Value Units Date/Time FL C Arm During Surgery [[id number]] Collected: 04/29/202011 Updated: 04/30/20 190 Narrative: EXAMINATION: FL C ARM DURING SURGERY - 04/29/2020 INDICATION: M54.41-Lumbago with sciatica, right side; M46.46-Discitis, unspecified, lumbar region; N17.9-Acute kidney failure, unspecified; Z99.2-Dependence on renal dialysis; D72.825-Bandemia; G06.1-Intraspinal abscess and granuloma. Lumbar laminectomy. TECHNIQUE: Intraoperative fluoroscopy for improved localization and treatment planning. COMPARISON: None. FINDINGS: Intraoperative fluoroscopy with total fluoroscopic time usage 10 seconds and 1 image saved during lumbar laminectomy. Impression: Intraoperative fluoroscopy was utilized during lumbar laminectomy. DICTATED: 04/29/2020 EDITED/ls : 04/29/2020 This report was finalized on 04/30/2020 6:[address] Elpidio Dyer. 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 ASSESSMENT: Patient is a 45-year-old with Kim with end-stage liver disease underwent transplant on immunosuppressive therapy on home hemodialysis 5 days/week with end-stage renal disease recent right chest walldialysis cath removed with some erythema this was followed by increasing lower back pain which progressed to fevers chills difficulty with ambulation. He was seen at several ERs including [facility] given Keflex with some improvement. Now admitted with fevers chills leukocytosis MRI revealing lumbar spine discitis osteomyelitis and fluid seen on MRI and epidural space of L5-S1 but no overt neurologic deficits today. ?? Get old records from [facility], it appears no blood cultures were obtained at any ER visit and had partially treated case with Keflex with some improvement. His white blood cell count has further decreased with vancomycin and Zosyn and now with surgical cultures with coag negative staph most likely this is a pathogen could be staph lugdunensis we will continue vancomycin and narrow Zosyn to ceftriaxone 2 g IV daily. Concerned his hemoglobin again dropped to 5.5 today will need blood transfusion PLAN: Continue vancomycin dosed by pharmacy on hemodialysis Follow-up final cultures but with coag negative staph will narrow Zosyn to ceftriaxone in case thisis a methicillin susceptible coag negative staph such as staph lugdunensis H/h drop today agree with transfusion today Will need home iv abx will review cultures to eval if can do dosing with HD vs may have to put in line for home iv abx. Possibly could [facility] while on antibiotics and [facility] patient ready for discharge Cayetano Rodriguez MD 05/01/2020 * Tim Coppola PA-C - 05/01/2020 10:07 AM EDT HOD# : 3 No events last night Patient developed slight cough last night with a semi-productive chest cough. Patient wishing for an expectorant. As far as the back and leg pain goes patient is only sore from the surgery and when he coughs he has a little bit of pain that shoots into both hips but this is much improved from prior to surgery. Incision is clean dry no signs of infection bleeding erythema. Sepsis (CMS/HCC) KIM (nonalcoholic steatohepatitis) History of liver transplant (CMS/HCC) Immunosuppression (CMS/HCC) Type 2 diabetes mellitus (CMS/HCC) Altered mental state ESRD (end stage renal disease) (CMS/HCC) Hyponatremia Discitis Epidural abscess Leukocytosis Temp: [98 ??F (36.7 ??C)-99.1 ??F (37.3 ??C)] 98.8 ??F (37.1 ??C) Heart Rate: [106-132] 126 Resp: [16-18] 16 BP: (128-182)/(62-90) 157/62 I/O last 3 completed shifts: In: 800 [P.O.:800] Out: 365 [Urine:175; Drains:40; Blood:150] I/O this shift: In: 360 [Blood:360] Out: - Vital signs were reviewed and documented in the chart EXAM Body mass index is 41.97 kg/m??. Patient appeared in good neurologic function with normal comprehension CN grossly intact Moves all extremities to command Incision clean dry no sign infection bleeding erythema DIAGNOSIS 1. Acute right-sided low back pain with right-sided sciatica 2. Discitis of lumbar region 3. Acute renal failure on dialysis ([facility]) 4. Bandemia 5. Abscess in epidural space of lumbar spine PLAN DC drain today. Patient will continue antibiotics. Cultures show rare Staphylococcus coagulase-negative ID might need to weigh in on antibiotics. Patient doing well from neurosurgical standpoint. Patient needs to continue follow-up with medical comorbidities with medicine doctors. Cosigned by Yinka Garnica MD at 05/02/2020 7:55 PM EDT Associated attestation - Yinka Garnica MD - 05/02/2020 7:55 PM EDT I have reviewed this documentation and agree. * Hilton Hamm MD - 05/01/2020 9:13 AM EDT LOS: 3 days Patient Care Team: Edgar Fournier MD as PCP - General (Family Medicine) Reason For Visit: F/U ESRD. SEEN ON DIALYSIS. Subjective Review of Systems: Pulm: No soa CV: No CP Objective aspirin, 81 mg, Oral, Daily carBAMazepine, 200 mg, Oral, Nightly cycloSPORINE modified, 50 mg, Oral, BID docusate sodium, 100 mg, Oral, BID entecavir, 0.5 mg, Oral, Weekly epoetin giancarlo/giancarlo-epbx, 20,000 Units, Subcutaneous, 3x Weekly famotidine, 10 mg, Oral, Daily gabapentin, 100 mg, Oral, Nightly hydrALAZINE, 100 mg, Oral, TID insulin detemir, 15 Units, Subcutaneous, Nightly insulin lispro, 0-9 Units, Subcutaneous, TID AC metoprolol tartrate, 100 mg, Oral, Q12H mycophenolate, 250 mg, Oral, BID NIFEdipine CC, 90 mg, Oral, BID piperacillin-tazobactam, 3.375 g, Intravenous, Once piperacillin-tazobactam, 3.375 g, Intravenous, Q12H sodium chloride, 10 mL, Intravenous, Q12H sodium chloride, 3 mL, Intravenous, Q12H vancomycin (dosing per levels), , Does not apply, Daily Pharmacy to dose vancomycin, sodium chloride, 50 mL/hr, Last Rate: 600 mL/hr (04/29/20 1923) sodium chloride, 9 mL/hr, Last Rate: 9 mL/hr (04/29/20 1608) Vital Signs: Blood pressure 138/77, pulse (!) 132, temperature 98.3 ??F (36.8 ??C), temperature source Oral, resp. rate 16, height 170.2 cm (67 ), weight 122 kg (268 lb), SpO2 93 %. Flowsheet Rows First Filed Value Admission Height 170.2 cm (67 ) Documented at 04/27/2020 2355 Admission Weight 125 kg (275 lb) Documented at 04/27/2020 2355 04/30 0701 - 05/01 0700 In: 300 [P.O.:300] Out: 195 [Urine:175; Drains:20] Physical Exam: General Appearance: NAD, alert and cooperative, Ox3 Eyes: PER, conjunctivae and sclerae normal, no icterus Lungs: respirations regular and unlabored, no crepitus, clear to auscultation Heart/CV: regular rhythm & normal rate, no murmur, no gallop, no rub and no edema Abdomen: not distended, soft, non-tender, no masses, bowel sounds present Skin: No rash, Warm and dry. AVF. Radiology: Labs: Results from last 7 days Lab Units 04/30/20 0759 04/29/20 1746 04/29/20 0618 04/28/20 0016 WBC 10*3/mm3 9.44 -- 11.27* 15.73* HEMOGLOBIN g/dL 6.3* 7.4* 7.8* 9.3* HEMATOCRIT % 19.6* 23.0* 23.9* 27.2* PLATELETS 10*3/mm3 292 -- 285 310 Results from last 7 days Lab Units 04/30/20 0759 04/29/20 1533 04/29/20 0618 04/28/20 0016 SODIUM mmol/L 131* 132* 134* 129* POTASSIUM mmol/L 4.0 4.2 4.1 4.3 CHLORIDE mmol/L 92* 95* 92* 80* CO2 mmol/L 22.0 19.0* 20.0* 19.0* BUN mg/dL 64* 48* 98* 109* CREATININE mg/dL 7.69* 5.03* 10.55* 14.39* CALCIUM mg/dL 8.9 9.0 9.1 9.3 PHOSPHORUS mg/dL 5.7* -- -- -- MAGNESIUM mg/dL -- -- 2.3 2.4 ALBUMIN g/dL 3.30* -- 3.50 3.60 Results from last 7 days Lab Units 04/30/20 0759 GLUCOSE mg/dL 204* Results from last 7 days Lab Units 04/30/20 0759 ALK PHOS U/L 71 BILIRUBIN mg/dL 0.2 ALT (SGPT) U/L 26 AST (SGOT) U/L 16 Results from last 7 days Lab Units 04/28/20 1143 PH, ARTERIAL pH units 7.277* PO2 ART mm Hg 88.1 PCO2, ARTERIAL mm Hg 46.8* HCO3 ART mmol/L 21.8 Results from last 7 days Lab Units 04/29/20 0144 COLOR UA Yellow CLARITY UA Clear PH, URINE <=5.0 SPECIFIC GRAVITY, URINE 1.017 GLUCOSE UA 100 mg/dL (Trace)* KETONES UA Negative BILIRUBIN UA Negative PROTEIN UA >=300 mg/dL (3+)* BLOOD UA Negative LEUKOCYTES UA Negative NITRITE UA Negative Estimated Creatinine Clearance: 15 mL/min (A) (by C-G formula based on SCr of 7.69 mg/dL (H)). Assessment Sepsis (CMS/HCC) KIM (nonalcoholic steatohepatitis) History of liver transplant (CMS/HCC) Immunosuppression (CMS/HCC) Type 2 diabetes mellitus (CMS/HCC) Altered mental state ESRD (end stage renal disease) (CMS/HCC) Hyponatremia Discitis Epidural abscess Leukocytosis Impression: ESRD. ANEMIA. Recommendations: HD WITH TRANSFUSION OF P RBC'S TODAY. Hilton Hamm MD 05/01/20 09:13 EDT * Odette Grace MD - 05/01/2020 8:50 AM EDT Images from the original note were not included. [facility] Medicine Services PROGRESS NOTE Patient Name: Leoncio Rollins : 1975 Date of Admission: 04/28/2020 Primary Care Physician: Edgar Fournier MD Subjective Subjective CC: Back pain HPI: Back from HD, no new issues. He notes he has had no BM in about 9 days. Review of Systems General: denies fevers or chills CV: denies chest pain Resp: starting to feel he cannot take a full breath - feels like abd is too full. Abd: denies abd pain, nausea Renal - does 5x/week HD per recs of his renal doc Heme - no gross bleeding that he is aware of Objective Objective Vital Signs: Temp: [97.5 ??F (36.4 ??C)-99.1 ??F (37.3 ??C)] 97.5 ??F (36.4 ??C) Heart Rate: [99-132] 108 Resp: [16-18] 16 BP: (122-182)/(62-90) 144/69 Physical Exam: Constitutional: alert, eating lunch, NAD Respiratory: Clear to auscultation bilaterally, respiratory effort normal on room air Cardiovascular: rrr Gastrointestinal: normal bowel sounds, soft, nontender, mildly distended Musculoskeletal: No bilateral ankle edema, cries out w pain when I move his R leg. Psychiatric: Appropriate affect, cooperative Neurologic: Oriented x 3, strength could not test LEs due to pain w movement. Cranial Nerves grossly intact to confrontation, speech clear, sensation in feet intact. Results Reviewed: Results from last 7 days Lab Units 05/01/20 0907 04/30/20 0759 04/29/20 1746 04/29/2018 04/28/201923 WBC 10*3/mm3 7.58 9.44 -- 11.27* -- HEMOGLOBIN g/dL 5.5* 6.3* 7.4* 7.8* -- HEMATOCRIT % 17.2* 19.6* 23.0* 23.9* -- PLATELETS 10*3/mm3 269 292 -- 285 -- PROCALCITONIN ng/mL -- -- -- -- 4.48* Results from last 7 days Lab Units 05/01/20 0907 04/30/20 0759 04/29/20 1533 04/29/20 0618 04/28/20192304/28/20 0016 SODIUM mmol/L 134* 131* 132* 134* -- 129* POTASSIUM mmol/L 4.1 4.0 4.2 4.1 -- 4.3 CHLORIDE mmol/L 95* 92* 95* 92* -- 80* CO2 mmol/L 20.0* 22.0 19.0* 20.0* -- 19.0* BUN mg/dL 81* 64* 48* 98* -- 109* CREATININE mg/dL 10.03* 7.69* 5.03* 10.55* -- 14.39* GLUCOSE mg/dL 195* 204* 127* 196* -- 285* CALCIUM mg/dL 8.6 8.9 9.0 9.1 -- 9.3 ALT (SGPT) U/L -- 26 -- 33 -- 48* AST (SGOT) U/L -- 16 -- 17 -- 24 TROPONIN T ng/mL -- -- -- -- 0.126* 0.154* Estimated Creatinine Clearance: 11.5 mL/min (A) (by C-G formula based on SCr of 10.03 mg/dL (H)). Microbiology Results Abnormal Procedure Component Value - Date/Time Wound Culture - Wound, Spine, Lumbar [[id number]] (Abnormal) Collected: 04/29/20 1843 Lab Status: Final result Specimen: Wound from Spine, Lumbar Updated: 05/01/20811 Wound Culture Rare Staphylococcus, coagulase negative Gram Stain No WBCs or organisms seen Blood Culture - Blood, Arm, Right [[id number]] Collected: 04/28/20 0650 Lab Status: Preliminary result Specimen: Blood from Arm, Right Updated: 05/01/20 0800 Blood Culture No growth at 3 days Blood Culture - Blood, Wrist, Right [[id number]] Collected: 04/28/20 0701 Lab Status: Preliminary result Specimen: Blood from Wrist, Right Updated: 05/01/20 0800 Blood Culture No growth at 3 days Tissue / Bone Culture - Tissue, Back, Lower [[id number]] Collected: 04/29/20 191 Lab Status: Preliminary result Specimen: Tissue from Back, Lower Updated: 05/01/20 0704 Tissue Culture No growth at 2 days Gram Stain Rare (1+) WBCs seen No organisms seen AFB Culture - Tissue, Back, Lower [[id number]] Collected: 04/29/201914 Lab Status: Preliminary result Specimen: Tissue from Back, Lower Updated: 04/30/20 1225 AFB Stain No acid fast bacilli seen on concentrated smear MRSA Screen, PCR (Inpatient) - Swab, Nares [[id number]] (Normal) Collected: 04/29/20 0150 Lab Status: Final result Specimen: Swab from Nares Updated: 04/29/20 0912 MRSA PCR Negative Narrative: MRSA Negative COVID PRE-OP / PRE-PROCEDURE SCREENING ORDER (NO ISOLATION) - Swab, Nasopharynx [[id number]] (Normal) Collected: 04/28/20 1505 Lab Status: Final result Specimen: Swab from Nasopharynx Updated: 04/28/20 1644 Narrative: The following orders were created for panel order COVID PRE-OP / PRE-PROCEDURE SCREENING ORDER (NO ISOLATION) - Swab, Nasopharynx. Procedure Abnormality Status --------- ------ Respiratory Panel PCR w/...[[id number]] Normal Final result Please view results for these tests on the individual orders. 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 Swab in UTM/VTM, 3-4 HR TAT - Swab, Nasopharynx [[id number]] (Normal) Collected: 04/28/20 1505 Lab Status: Final result Specimen: Swab from Nasopharynx Updated: 04/28/20 1644 ADENOVIRUS, PCR Not Detected Coronavirus 229E Not Detected Coronavirus HKU1 Not Detected Coronavirus NL63 Not Detected Coronavirus OC43 Not Detected COVID19 Not Detected Human Metapneumovirus Not Detected Human Rhinovirus/Enterovirus Not Detected Influenza A PCR Not Detected Influenza A H1 Not Detected Influenza A H1 2009 PCR Not Detected Influenza A H3 Not Detected Influenza B PCR Not Detected Parainfluenza Virus 1 Not Detected Parainfluenza Virus 2 Not Detected Parainfluenza Virus 3 Not Detected Parainfluenza Virus 4 Not Detected RSV, PCR Not Detected Bordetella pertussis pcr Not Detected Bordetella parapertussis PCR Not Detected Chlamydophila pneumoniae PCR Not Detected Mycoplasma pneumo by PCR Not Detected Narrative: Fact sheet for providers: https://docs.[employer]/wp-content/uploads/QFL8171-1727-EA1.1-EUA-Provi tss-Bpip-Wnwne-3.pdf Fact sheet for patients: https://docs.[employer]/wp-content/uploads/ASN7181-1463-OL3.7-YDT-Uhjucr l-Vtbd-Jljyn-1.pdf Imaging Results (Last 24 Hours) Procedure Component Value Units Date/Time FL C Arm During Surgery [[id number]] Collected: 04/29/202011 Updated: 04/30/20 1900 Narrative: EXAMINATION: FL C ARM DURING SURGERY - 04/29/2020 INDICATION: M54.41-Lumbago with sciatica, right side; M46.46-Discitis, unspecified, lumbar region; N17.9-Acute kidney failure, unspecified; Z99.2-Dependence on renal dialysis; D72.825-Bandemia; G06.1-Intraspinal abscess and granuloma. Lumbar laminectomy. TECHNIQUE: Intraoperative fluoroscopy for improved localization and treatment planning. COMPARISON: None. FINDINGS: Intraoperative fluoroscopy with total fluoroscopic time usage 10 seconds and 1 image saved during lumbar laminectomy. Impression: Intraoperative fluoroscopy was utilized during lumbar laminectomy. DICTATED: 04/29/2020 EDITED/ls : 04/29/2020 This report was finalized on 04/30/2020 6:[address] Elpidio Dyer. XR Spine Lumbar Flex & Ext [[id number]] Resulted: 04/30/20 1503 Updated: 04/30/20 1540 I have reviewed the medications: Scheduled Meds:aspirin, 81 mg, Oral, Daily carBAMazepine, 200 mg, Oral, Nightly cefTRIAXone, 2 g, Intravenous, Q24H cycloSPORINE modified, 50 mg, Oral, BID docusate sodium, 100 mg, Oral, BID entecavir, 0.5 mg, Oral, Weekly epoetin giancarlo/giancarlo-epbx, 20,000 Units, Subcutaneous, 3x Weekly famotidine, 10 mg, Oral, Daily gabapentin, 100 mg, Oral, Nightly hydrALAZINE, 100 mg, Oral, TID insulin detemir, 15 Units, Subcutaneous, Nightly insulin lispro, 0-9 Units, Subcutaneous, TID AC metoprolol tartrate, 100 mg, Oral, Q12H mycophenolate, 250 mg, Oral, BID NIFEdipine CC, 90 mg, Oral, BID sodium chloride, 10 mL, Intravenous, Q12H sodium chloride, 3 mL, Intravenous, Q12H vancomycin (dosing per levels), , Does not apply, Daily vancomycin, 750 mg, Intravenous, Once Continuous Infusions:Pharmacy to dose vancomycin, sodium chloride, 50 mL/hr, Last Rate: 600 mL/hr (04/29/20 1923) sodium chloride, 9 mL/hr, Last Rate: 9 mL/hr (04/29/20 1608) PRN Meds:.??? acetaminophen OR acetaminophen OR acetaminophen ??? acetaminophen ??? calcium carbonate EX ??? dextrose ??? dextrose ??? glucagon (human recombinant) ??? HYDROcodone-acetaminophen ??? HYDROmorphone ??? HYDROmorphone AND naloxone ??? ondansetron ??? Pharmacy to dose vancomycin ??? sodium chloride ??? sodium chloride ??? temazepam ??? terazosin Assessment/Plan Assessment & Plan Active Hospital Problems Diagnosis POA ??? Sepsis (CMS/HCC) [A41.9] Yes ??? KIM (nonalcoholic steatohepatitis) [K75.81] Unknown ??? History of liver transplant (CMS/HCC) [Z94.4] Not Applicable ??? Immunosuppression (CMS/HCC) [D89.9] Unknown ??? Type 2 diabetes mellitus ([facility]/HCC) [E11.9] Unknown ??? Altered mental state [R41.82] Unknown ??? ESRD (end stage renal disease) (CMS/HCC) [N18.6] Unknown ??? Hyponatremia [E87.1] Unknown ??? Discitis [M46.40] Unknown ??? 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] Unknown ??? Leukocytosis [D72.829] Unknown Resolved Hospital Problems No resolved problems to display. Brief Hospital Course to date: Leoncio Rollins is a 45 y.o. male with history of liver transplant 2018 secondary to KIM, ESRD on home dialysis 5 days per week, DM who presents with 1 week of back pain, fever and AMS. Found to havediscitis and epidural abscess on imaging. Severe sepsis (fever, confusion, leukocytosis, lactic acidosis) in setting of immunosuppression Discitis Epidural abscess - MRI L5/S1 with osteomyelitis/discitis and fluid collection concerning for epidural abscess - BCx negative. -Respiratory viral panel negative - MRSA PCR neg -Neurosurgery consulted. 04/29 L5 laminectomy, epidural abscess I and D. - ID: antibiotic therapy. Continue vancomycin and Zosyn day 4, - pain control. Severe constip - aggressive mgmt - change to low residue diet for now Acute anemia - superimposed on chronic anemia of renal disease; mild fe defic - txd two units in HD - unclear cause; down 4g in 4 days. Could be dilutional in part but he is not very edematous - check stool; doubt intravasc hemolysis; no visible bleeding - PPI decreases the effect of mycophenylate; start once daily but stop soon if no bleeding proven. Metabolic encephalopathy - sepsis, uremia, and likely narcotics - Reduced gabapentin dose ?? Gastric distention by CT -CT abdomen pelvis; no evidence of small bowel obstruction. - pt eating Liver transplant on chronic immunosuppression - history of transplant at in 2018 for KIM - Will continue cyclosporine and cellcept -- patient's to bring in patient's entecavir - GI and ID consulted ; GI recommends continuing immunosuppressives ?? ESRD Uremia Hyponatremia - Currently on home dialysis 5 days per week , suspect he could decr to tiw wtihout difficulty. Will d/w nephrol. Sees. Dr. Yana uribe. - Nephrology following - epo ?? DM on NPH bid at home - SSI; adjust PRN - add levemir qhs today. ?? Pain; chronic opioid use - seen in the ER 5 times in the last month for his pain. - needs bello review; will d/w pharmacist DVT prophylaxis: SCDs ?? Disposition: I expect the patient to be discharged TBD. Would be hard to get into SNF due to combination of Medicaid and HD needs. CODE STATUS: Code Status and Medical Interventions: Ordered at: 04/28/20 1125 Code Status: CPR Medical Interventions (Level of Support Prior to Arrest): Full * Hilton Hamm MD - 04/30/2020 2:46 PM EDT LOS: 2 days Patient Care Team: Edgar Fournier MD as PCP - General (Family Medicine) Reason For Visit: F/U ESRD Subjective Review of Systems: Pulm: No soa CV: No CP Objective aspirin, 81 mg, Oral, Daily carBAMazepine, 200 mg, Oral, Nightly cycloSPORINE modified, 50 mg, Oral, BID docusate sodium, 100 mg, Oral, BID entecavir, 0.5 mg, Oral, Weekly [START ON 05/01/2020] epoetin giancarlo/giancarlo-epbx, 20,000 Units, Subcutaneous, 3x Weekly famotidine, 10 mg, Oral, Daily gabapentin, 100 mg, Oral, Nightly hydrALAZINE, 100 mg, Oral, TID insulin detemir, 6 Units, Subcutaneous, Nightly insulin lispro, 0-9 Units, Subcutaneous, TID AC metoprolol tartrate, 100 mg, Oral, Q12H mycophenolate, 250 mg, Oral, BID NIFEdipine CC, 90 mg, Oral, BID piperacillin-tazobactam, 3.375 g, Intravenous, Once piperacillin-tazobactam, 3.375 g, Intravenous, Q12H sodium chloride, 10 mL, Intravenous, Q12H sodium chloride, 3 mL, Intravenous, Q12H vancomycin (dosing per levels), , Does not apply, Daily Pharmacy to dose vancomycin, sodium chloride, 50 mL/hr, Last Rate: 600 mL/hr (04/29/20 1923) sodium chloride, 9 mL/hr, Last Rate: 9 mL/hr (04/29/20 1608) Vital Signs: Blood pressure 164/96, pulse (!) 123, temperature 98.2 ??F (36.8 ??C), temperature source Oral, resp. rate 20, height 170.2 cm (67 ), weight 122 kg (268 lb), SpO2 98 %. Flowsheet Rows First Filed Value Admission Height 170.2 cm (67 ) Documented at 04/27/2020 2355 Admission Weight 125 kg (275 lb) Documented at 04/27/2020 2355 04/29 07 - 04/30 0700 In: 500 [P.O.:500] Out: 1720 [Drains:20] Physical Exam: General Appearance: NAD, alert and cooperative, Ox3 Eyes: PER, conjunctivae and sclerae normal, no icterus Lungs: respirations regular and unlabored, no crepitus, clear to auscultation Heart/CV: regular rhythm & normal rate, no murmur, no gallop, no rub and no edema Abdomen: not distended, soft, non-tender, no masses, bowel sounds present Skin: No rash, Warm and dry. AVF. Radiology: Labs: Results from last 7 days Lab Units 04/30/20 0759 04/29/20 1746 04/29/2061704/28/20 0016 WBC 10*3/mm3 9.44 -- 11.27* 15.73* HEMOGLOBIN g/dL 6.3* 7.4* 7.8* 9.3* HEMATOCRIT % 19.6* 23.0* 23.9* 27.2* PLATELETS 10*3/mm3 292 -- 285 310 Results from last 7 days Lab Units 04/30/20 0759 04/29/20 1533 04/29/2061704/28/20 0016 SODIUM mmol/L 131* 132* 134* 129* POTASSIUM mmol/L 4.0 4.2 4.1 4.3 CHLORIDE mmol/L 92* 95* 92* 80* CO2 mmol/L 22.0 19.0* 20.0* 19.0* BUN mg/dL 64* 48* 98* 109* CREATININE mg/dL 7.69* 5.03* 10.55* 14.39* CALCIUM mg/dL 8.9 9.0 9.1 9.3 PHOSPHORUS mg/dL 5.7* -- -- -- MAGNESIUM mg/dL -- -- 2.3 2.4 ALBUMIN g/dL 3.30* -- 3.50 3.60 Results from last 7 days Lab Units 04/30/20 0759 GLUCOSE mg/dL 204* Results from last 7 days Lab Units 04/30/20 0759 ALK PHOS U/L 71 BILIRUBIN mg/dL 0.2 ALT (SGPT) U/L 26 AST (SGOT) U/L 16 Results from last 7 days Lab Units 04/28/20 1143 PH, ARTERIAL pH units 7.277* PO2 ART mm Hg 88.1 PCO2, ARTERIAL mm Hg 46.8* HCO3 ART mmol/L 21.8 Results from last 7 days Lab Units 04/29/20 0144 COLOR UA Yellow CLARITY UA Clear PH, URINE <=5.0 SPECIFIC GRAVITY, URINE 1.017 GLUCOSE UA 100 mg/dL (Trace)* KETONES UA Negative BILIRUBIN UA Negative PROTEIN UA >=300 mg/dL (3+)* BLOOD UA Negative LEUKOCYTES UA Negative NITRITE UA Negative Estimated Creatinine Clearance: 15 mL/min (A) (by C-G formula based on SCr of 7.69 mg/dL (H)). Assessment Sepsis (CMS/HCC) KIM (nonalcoholic steatohepatitis) History of liver transplant (CMS/HCC) Immunosuppression (CMS/HCC) Type 2 diabetes mellitus (CMS/HCC) Altered mental state ESRD (end stage renal disease) (CMS/HCC) Hyponatremia Discitis Epidural abscess Leukocytosis Impression: ESRD. SEVERE ANEMIA. Recommendations: HD WITH TRANSFUSION P RBC'S 05/01/20. Hilton Hamm MD 04/30/20 14:46 EDT * Odette Grace MD - 04/30/2020 1:51 PM EDT Images from the original note were not included. [facility] Medicine Services PROGRESS NOTE Patient Name: Leoncio Rollins : 1975 Date of Admission: 04/28/2020 Primary Care Physician: Edgar Fournier MD Subjective Subjective CC: Back pain HPI: Pain is much better after surgical decompression of abscess yest. No new complaints. He has pain w moving the R leg and has not been OOB. Review of Systems General: denies fevers or chills CV: denies chest pain Resp: denies shortness of breath Abd: denies abd pain, nausea Renal - does 5x/week HD per recs of his renal doc Objective Objective Vital Signs: Temp: [97.5 ??F (36.4 ??C)-99 ??F (37.2 ??C)] 98.2 ??F (36.8 ??C) Heart Rate: [96-127] 123 Resp: [18-22] 20 BP: (102-170)/(65-96) 164/96 Physical Exam: Constitutional: Asleep but wakes. present and she agrees he seems better. Respiratory: Clear to auscultation bilaterally, respiratory effort normal on room air Cardiovascular: mildly tachy RR Gastrointestinal: Base positive bowel sounds, soft, nontender, nondistended Musculoskeletal: No bilateral ankle edema, cries out w pain when I move his R leg. Psychiatric: Appropriate affect, cooperative Neurologic: Oriented x 3, strength could not test LEs due to pain w movement. Cranial Nerves grossly intact to confrontation, speech clear, sensation in feet intact Results Reviewed: Results from last 7 days Lab Units 04/30/20 07504/29/20 1746 04/29/2061704/28/20192304/28/20 0016 WBC 10*3/mm3 9.44 -- 11.27* -- 15.73* HEMOGLOBIN g/dL 6.3* 7.4* 7.8* -- 9.3* HEMATOCRIT % 19.6* 23.0* 23.9* -- 27.2* PLATELETS 10*3/mm3 292 -- 285 -- 310 PROCALCITONIN ng/mL -- -- -- 4.48* -- Results from last 7 days Lab Units 04/30/20 0759 04/29/20 1533 04/29/20 0618 04/28/20192304/28/20 0016 SODIUM mmol/L 131* 132* 134* -- 129* POTASSIUM mmol/L 4.0 4.2 4.1 -- 4.3 CHLORIDE mmol/L 92* 95* 92* -- 80* CO2 mmol/L 22.0 19.0* 20.0* -- 19.0* BUN mg/dL 64* 48* 98* -- 109* CREATININE mg/dL 7.69* 5.03* 10.55* -- 14.39* GLUCOSE mg/dL 204* 127* 196* -- 285* CALCIUM mg/dL 8.9 9.0 9.1 -- 9.3 ALT (SGPT) U/L 26 -- 33 -- 48* AST (SGOT) U/L 16 -- 17 -- 24 TROPONIN T ng/mL -- -- -- 0.126* 0.154* Estimated Creatinine Clearance: 15 mL/min (A) (by C-G formula based on SCr of 7.69 mg/dL (H)). Microbiology Results Abnormal Procedure Component Value - Date/Time AFB Culture - Tissue, Back, Lower [[id number]] Collected: 04/29/201914 Lab Status: Preliminary result Specimen: Tissue from Back, Lower Updated: 04/30/20 1225 AFB Stain No acid fast bacilli seen on concentrated smear Blood Culture - Blood, Arm, Right [[id number]] Collected: 04/28/20 0650 Lab Status: Preliminary result Specimen: Blood from Arm, Right Updated: 04/30/20 0800 Blood Culture No growth at 2 days Blood Culture - Blood, Wrist, Right [[id number]] Collected: 04/28/20 0701 Lab Status: Preliminary result Specimen: Blood from Wrist, Right Updated: 04/30/20 0800 Blood Culture No growth at 2 days Wound Culture - Wound, Spine, Lumbar [[id number]] Collected: 04/29/20 1843 Lab Status: Preliminary result Specimen: Wound from Spine, Lumbar Updated: 04/30/20 0704 Wound Culture No growth at less than 24 hours Gram Stain No WBCs or organisms seen Tissue / Bone Culture - Tissue, Back, Lower [[id number]] Collected: 04/29/201914 Lab Status: Preliminary result Specimen: Tissue from Back, Lower Updated: 04/30/20 0703 Tissue Culture No growth at less than 24 hours Gram Stain Rare (1+) WBCs seen No organisms seen MRSA Screen, PCR (Inpatient) - Swab, Nares [[id number]] (Normal) Collected: 04/29/20 0150 Lab Status: Final result Specimen: Swab from Nares Updated: 04/29/20 0912 MRSA PCR Negative Narrative: MRSA Negative COVID PRE-OP / PRE-PROCEDURE SCREENING ORDER (NO ISOLATION) - Swab, Nasopharynx [[id number]] (Normal) Collected: 04/28/20 1505 Lab Status: Final result Specimen: Swab from Nasopharynx Updated: 04/28/20 1644 Narrative: The following orders were created for panel order COVID PRE-OP / PRE-PROCEDURE SCREENING ORDER (NO ISOLATION) - Swab, Nasopharynx. Procedure Abnormality Status --------- ------ Respiratory Panel PCR w/...[[id number]] Normal Final result Please view results for these tests on the individual orders. 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 Swab in UTM/VTM, 3-4 HR TAT - Swab, Nasopharynx [[id number]] (Normal) Collected: 04/28/20 1505 Lab Status: Final result Specimen: Swab from Nasopharynx Updated: 04/28/20 1644 ADENOVIRUS, PCR Not Detected Coronavirus 229E Not Detected Coronavirus HKU1 Not Detected Coronavirus NL63 Not Detected Coronavirus OC43 Not Detected COVID19 Not Detected Human Metapneumovirus Not Detected Human Rhinovirus/Enterovirus Not Detected Influenza A PCR Not Detected Influenza A H1 Not Detected Influenza A H1 2009 PCR Not Detected Influenza A H3 Not Detected Influenza B PCR Not Detected Parainfluenza Virus 1 Not Detected Parainfluenza Virus 2 Not Detected Parainfluenza Virus 3 Not Detected Parainfluenza Virus 4 Not Detected RSV, PCR Not Detected Bordetella pertussis pcr Not Detected Bordetella parapertussis PCR Not Detected Chlamydophila pneumoniae PCR Not Detected Mycoplasma pneumo by PCR Not Detected Narrative: Fact sheet for providers: https://docs.[employer]/wp-content/uploads/WOO7544-3672-HD9.1-EUA-Provi mbe-Sxcc-Xoevx-3.pdf Fact sheet for patients: https://docs.[employer]/wp-content/uploads/EPV8264-2992-QF0.5-KYL-Yetxqg w-Dryg-Ghbbs-1.pdf Imaging Results (Last 24 Hours) Procedure Component Value Units Date/Time FL C Arm During Surgery [[id number]] Collected: 04/29/202011 Updated: 04/29/202099 Narrative: EXAMINATION: FL C ARM DURING SURGERY - 04/29/2020 INDICATION: M54.41-Lumbago with sciatica, right side; M46.46-Discitis, unspecified, lumbar region; N17.9-Acute kidney failure, unspecified; Z99.2-Dependence on renal dialysis; D72.825-Bandemia; G06.1-Intraspinal abscess and granuloma. Lumbar laminectomy. TECHNIQUE: Intraoperative fluoroscopy for improved localization and treatment planning. COMPARISON: None. FINDINGS: Intraoperative fluoroscopy with total fluoroscopic time usage 10 seconds and 1 image saved during lumbar laminectomy. Impression: Intraoperative fluoroscopy was utilized during lumbar laminectomy. DICTATED: 04/29/2020 EDITED/ls : 04/29/2020 I have reviewed the medications: Scheduled Meds:aspirin, 81 mg, Oral, Daily carBAMazepine, 200 mg, Oral, Nightly cycloSPORINE modified, 50 mg, Oral, BID docusate sodium, 100 mg, Oral, BID entecavir, 0.5 mg, Oral, Weekly [START ON 05/01/2020] epoetin giancarlo/giancarlo-epbx, 20,000 Units, Subcutaneous, 3x Weekly famotidine, 10 mg, Oral, Daily gabapentin, 100 mg, Oral, Nightly hydrALAZINE, 100 mg, Oral, TID insulin lispro, 0-9 Units, Subcutaneous, TID AC metoprolol tartrate, 100 mg, Oral, Q12H mycophenolate, 250 mg, Oral, BID NIFEdipine CC, 90 mg, Oral, BID piperacillin-tazobactam, 3.375 g, Intravenous, Once piperacillin-tazobactam, 3.375 g, Intravenous, Q12H sodium chloride, 10 mL, Intravenous, Q12H sodium chloride, 3 mL, Intravenous, Q12H vancomycin (dosing per levels), , Does not apply, Daily Continuous Infusions:Pharmacy to dose vancomycin, sodium chloride, 50 mL/hr, Last Rate: 600 mL/hr (04/29/20 1923) sodium chloride, 9 mL/hr, Last Rate: 9 mL/hr (04/29/20 1608) PRN Meds:.??? acetaminophen OR acetaminophen OR acetaminophen ??? acetaminophen ??? [MAR Hold] albumin human ??? calcium carbonate EX ??? dextrose ??? dextrose ??? glucagon (human recombinant) ??? HYDROcodone-acetaminophen ??? HYDROmorphone ??? HYDROmorphone AND naloxone ??? ondansetron ??? Pharmacy to dose vancomycin ??? sodium chloride ??? sodium chloride ??? temazepam ??? terazosin Assessment/Plan Assessment & Plan Active Hospital Problems Diagnosis POA ??? Sepsis (CMS/HCC) [A41.9] Yes ??? KIM (nonalcoholic steatohepatitis) [K75.81] Unknown ??? History of liver transplant (CMS/HCC) [Z94.4] Not Applicable ??? Immunosuppression (CMS/HCC) [D89.9] Unknown ??? Type 2 diabetes mellitus (CMS/HCC) [E11.9] Unknown ??? Altered mental state [R41.82] Unknown ??? ESRD (end stage renal disease) (CMS/HCC) [N18.6] Unknown ??? Hyponatremia [E87.1] Unknown ??? Discitis [M46.40] Unknown ??? 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] Unknown ??? Leukocytosis [D72.829] Unknown Resolved Hospital Problems No resolved problems to display. Brief Hospital Course to date: Leoncio Rollins is a 45 y.o. male with history of liver transplant 2018 secondary to KIM, ESRD on home dialysis 5 days per week, DM who presents with 1 week of back pain, fever and AMS. Found to havediscitis and epidural abscess on imaging. All problems are new to me. Chart reviewed. ?? Severe sepsis (fever, confusion, leukocytosis, lactic acidosis) in setting of immunosuppression Discitis Epidural abscess - MRI L5/S1 with osteomyelitis/discitis and fluid collection concerning for epidural abscess - BCx negative. -Respiratory viral panel negative - MRSA PCR neg -Neurosurgery consulted. 04/29 L5 laminectomy, epidural abscess I and D. - ID: antibiotic therapy. Continue vancomycin and Zosyn day 3, - pain control. Metabolic encephalopathy - sepsis, uremia, and likely narcotics - Reduced gabapentin dose ?? Gastric distention -CT abdomen pelvis; no evidence of small bowel obstruction. - distention of the stomach, correlate with gastroparesis versus gastric outlet obstruction. - -taking PO -Small amount of vomiting few days ago per Liver transplant on chronic immunosuppression - history of transplant at in 2018 for KIM - Will continue cyclosporine and cellcept -- patient's to bring in patient's entecavir - GI and ID consulted ; GI recommends continuing immunosuppressives ?? ESRD Uremia Hyponatremia - Currently on home dialysis 5 days per week , suspect he could decr to tiw wtihout difficulty. Will d/w nephrol. Sees. Dr. Yana uribe. - Nephrology following - epo ?? Anemia of renal disease; mild fe defic - worse today; transfuse in HD tomorrow DM on NPH bid at home - SSI; adjust PRN - add levemir qhs today. ?? Pain; chronic opioid use - seen in the ER 5 times in the last month for his pain. - needs bello review; will d/w pharmacist DVT prophylaxis: SCDs ?? Disposition: I expect the patient to be discharged TBD. CODE STATUS: Code Status and Medical Interventions: Ordered at: 04/28/20 1125 Code Status: CPR Medical Interventions (Level of Support Prior to Arrest): Full More than 50% of time spent on coordination of care with nursing staff/case management/specialists as well as counseling patient/family on current illness/plan of care . Case discussed with: Nursing staff/case management, patient and family Total time of the encounter was 50 minutes. * Cayetano Rodriguez MD - 04/30/2020 9:12 AM EDT [facility] Progress Note Date of Admission: 04/28/2020 Antibiotics: Vancomycin and Zosyn CC: Chief Complaint Patient presents with ??? Back Pain ??? Multiple complaints S: Patient afebrile and stable today except elevated HR. S/p surgery yesterday for lumbar spine drainage. Drop in H/H. Still with some confusion today. O: BP 164/96 Pulse (!) 123 Temp 98.2 ??F (36.8 ??C) (Oral) Resp 20 Ht 170.2 cm (67 ) Wt 122 kg (268 lb) SpO2 98% BMI 41.97 kg/m?? Temp (24hrs), Av.2 ??F (36.8 ??C), Min:97.5 ??F (36.4 ??C), Max:99 ??F (37.2 ??C) PE: GENERAL: lethargic in NAD. HEENT: Normocephalic, atraumatic. PERRL. EOMI. No conjunctival injection. No icterus. Oropharynx clear without evidence of thrush or exudate. No evidence of peridontal disease. NECK: Supple without nuchal rigidity LYMPH: No cervical, axillary or inguinal lymphadenopathy. No neck masses HEART: RRR; No murmur, rubs, gallops. LUNGS: Clear to auscultation bilaterally without wheezing, rales, rhonchi. Normal respiratory effort. ABDOMEN: Soft, obese and distended positive bowel sounds. No rebound or guarding. EXT: No cyanosis, clubbing or edema : Normal appearing genitalia without Anders catheter. MSK: decreased ROM of l spine SKIN: Warm and dry without cutaneous eruptions. NEURO: Oriented to PPT. No focal deficits. Mild decreased sensation in feet but good strength 5 outof 5 of upper and lower extremities PSYCHIATRIC: Istable insight and judgement. Cooperative with PE ?? Laboratory Data Results from last 7 days Lab Units 04/30/20 0759 04/29/20 1746 04/29/20 0618 04/28/20 0016 WBC 10*3/mm3 9.44 -- 11.27* 15.73* HEMOGLOBIN g/dL 6.3* 7.4* 7.8* 9.3* HEMATOCRIT % 19.6* 23.0* 23.9* 27.2* PLATELETS 10*3/mm3 292 -- 285 310 Results from last 7 days Lab Units 04/29/20 1533 SODIUM mmol/L 132* POTASSIUM mmol/L 4.2 CHLORIDE mmol/L 95* CO2 mmol/L 19.0* BUN mg/dL 48* CREATININE mg/dL 5.03* GLUCOSE mg/dL 127* CALCIUM mg/dL 9.0 Results from last 7 days Lab Units 04/29/20 0618 ALK PHOS U/L 82 BILIRUBIN mg/dL 0.2 ALT (SGPT) U/L 33 AST (SGOT) U/L 17 Estimated Creatinine Clearance: 23 mL/min (A) (by C-G formula based on SCr of 5.03 mg/dL (H)). Microbiology: Blood cultures negative to date Radiology: Imaging Results (Last 24 Hours) Procedure Component Value Units Date/Time FL C Arm During Surgery [[id number]] Collected: 04/29/202011 Updated: 04/29/202099 Narrative: EXAMINATION: FL C ARM DURING SURGERY - 04/29/2020 INDICATION: M54.41-Lumbago with sciatica, right side; M46.46-Discitis, unspecified, lumbar region; N17.9-Acute kidney failure, unspecified; Z99.2-Dependence on renal dialysis; D72.825-Bandemia; G06.1-Intraspinal abscess and granuloma. Lumbar laminectomy. TECHNIQUE: Intraoperative fluoroscopy for improved localization and treatment planning. COMPARISON: None. FINDINGS: Intraoperative fluoroscopy with total fluoroscopic time usage 10 seconds and 1 image saved during lumbar laminectomy. Impression: Intraoperative fluoroscopy was utilized during lumbar laminectomy. DICTATED: 04/29/2020 EDITED/ls : 04/29/2020 MRI Lumbar Spine Without Contrast [[id number]] Collected: 04/28/20 1058 Updated: 04/29/20 09 Narrative: EXAMINATION: MRI LUMBAR SPINE WO CONTRAST-04/28/2020: INDICATION: Lower back pain, evaluate for epidural abscess. Positive changes on CT scan; M54.41-Lumbago with sciatica, right side; M46.46-Discitis, unspecified, lumbar region; N17.9-Acute kidney failure, unspecified; Z99.2-Dependence on renal dialysis; D72.825-Bandemia, low back pain. TECHNIQUE: Routine multiplanar imaging was obtained of the lumbar spine without the administration of Gadolinium contrast. COMPARISON: CT scan of the lumbar spine dated 04/28/2020. FINDINGS: There is abnormality identified within the L5/S1 level with fluid identified in the disc space and abnormal fluid and signal intensity seen posterior to the L5 level. Bilateral pars defects identified of the L5/S1 level with mild anterolisthesis identified of L5 on S1. There is mass effect on the anterior aspect of the thecal sac. Findings highly concerning for an epidural abscess. There is narrowing identified of the spinal canal. The abnormal fluid collection measures approximately 4.3 x 1.4 x 1.1 cm in its largest dimension. There is signal changes identified within the inferior endplate of L5 and superior endplate of S1 suggesting osteomyelitis. There are degenerative changes identified of the L4/L5 level. No abnormal mass or fluid collection seen within the paraspinal muscles. The remainder of the disc spaces are preserved. Normal signal intensity within the conus. Impression: There are degenerative changes seen of the L4/L5 and L5/S1 levels with osteomyelitis and discitis seen of L5 and S1 with fluid collection identified in the epidural space concerning for an epidural abscess. Clinical correlation is needed. There is mass effect on the thecal sac with narrowing and mass effect on the nerve roots bilaterally. E: 04/28/2020 This report was finalized on 04/29/2020 9:[address] Abbie Carlson MD. PROBLEM LIST: Sepsis Lumbar spine discitis osteomyelitis with epidural abscess component s/p I and D Liver transplant on immunosuppression Fevers with chills Leukocytosis Increasing lower back pain Type 2 diabetes mellitus Hyponatremia End-stage renal disease on hemodialysis Kim Acute blood loss anemia ?? ASSESSMENT: Patient is a 45-year-old with Kim with end-stage liver disease underwent transplant on immunosuppressive therapy on home hemodialysis 5 days/week with end-stage renal disease recent right chest walldialysis cath removed with some erythema this was followed by increasing lower back pain which progressed to fevers chills difficulty with ambulation. He was seen at several ERs including [facility] given Keflex with some improvement. Now admitted with fevers chills leukocytosis MRI revealing lumbar spine discitis osteomyelitis and fluid seen on MRI and epidural space of L5-S1 but no overt neurologic deficits today. ?? Get old records from [facility], it appears no blood cultures were obtained at any ER visit and had partially treated case with Keflex with some improvement. His white blood cell count has further decreased with vancomycin and Zosyn and now with surgery with drainage of epidural abscess, Drop in H/H today probably post op in nature. ?? PLAN: Continue vancomycin Zosyn, renally dosed Monitor blood cultures F/u surgical cultures Appreciate Dr. Garnica's evaluation and prompt surgical drainage H/h drop today agree with renal about transfusion today Will need home iv abx will review cultures to eval if can do dosing with HD vs may have to put in line for home iv abx. D/w Pt and at bedside today. Complex transplant pt with life-threatening infection. I spent >35 min on his case today with more than >%50 time in counseling/coordination of carefor sepsis with l spine epidural abscess, confusion and requiring half-way iv abx and dialysis in [facility] Cayetano Rodriguez MD 04/30/2020 * Tim Coppola PA-C - 04/30/2020 8:47 AM EDT HOD# : 2 No events last night Patient notices drastic reduction in his pain. Patient has been up ambulating throughout the room with minimal leg pain. Patient has a number of medical comorbidities that complicate his care. From neurosurgical standpoint he is doing fantastic. We need to await the results of the cultures to see if ID needs to be involved for IV antibiotics. We are going to get a standing lumbar x-ray to ensure that he does not have any instability. Patient had quite severe facet disease with joint degeneration we want to ensure that he is not having anyactive spondylolisthesis. With patient current symptoms hopefully this is a negative finding. Sepsis (CMS/HCC) KIM (nonalcoholic steatohepatitis) History of liver transplant (CMS/HCC) Immunosuppression (CMS/HCC) Type 2 diabetes mellitus (CMS/HCC) Altered mental state ESRD (end stage renal disease) (CMS/HCC) Hyponatremia Discitis Epidural abscess Leukocytosis Temp: [97.5 ??F (36.4 ??C)-99 ??F (37.2 ??C)] 98.2 ??F (36.8 ??C) Heart Rate: [96-127] 123 Resp: [18-22] 20 BP: (102-170)/(65-96) 164/96 I/O last 3 completed shifts: In: 550 [P.O.:500; IV Piggyback:50] Out: 1745 [Urine:25; Drains:20; Other:1550; Blood:150] No intake/output data recorded. Vital signs were reviewed and documented in the chart EXAM Body mass index is 41.97 kg/m??. Patient appeared in good neurologic function with normal comprehension CN grossly intact Moves all extremities to command Dorsiflexion plantar flexion equal bilaterally DIAGNOSIS 1. Acute right-sided low back pain with right-sided sciatica 2. Discitis of lumbar region 3. Acute renal failure on dialysis ([facility]) 4. Bandemia 5. Abscess in epidural space of lumbar spine PLAN Patient will remain in the hospital for further work-up of medical comorbidities. Cultures pending from disc space infection Standing upright x-rays today Looking good from neurosurgical standpoint. Pain is much more controlled. Patient wishes to go home, but I have encouraged him to stay here for getting full work-up for his current disease status. Cosigned by Yinka Garnica MD at 04/30/2020 10:58 AM EDT Associated attestation - Yinka Garnica MD - 04/30/2020 10:58 AM EDT I have reviewed this documentation and agree. Looks great today patient's improved Needs antibiotics Flexion-extension * Yinka Garnica MD - 04/29/2020 4:46 PM EDT Talked with [id number] regarding surgical decision making would recommend L5 lamina foraminotomies-laminectomy and exploration of epidural mass-disc herniation-abscess? Explain complexities ofhis care risk of medical complications given the gentleman's underlying medical comorbidities She is in agreement * Cayetano Rodriguez MD - 04/29/2020 1:20 PM EDT [facility] Progress Note Date of Admission: 04/28/2020 Antibiotics: Vancomycin and Zosyn CC: Chief Complaint Patient presents with ??? Back Pain ??? Multiple complaints S: Patient afebrile the day less confused tolerated hemodialysis yesterday decrease in white blood cell count no fevers chills decrease in back pain. O: BP 163/80 Pulse 116 Temp 98.2 ??F (36.8 ??C) (Oral) Resp 20 Ht 170.2 cm (67.01 ) Wt 122 kg (268 lb 1.6 oz) SpO2 91% BMI 41.98 kg/m?? Temp (24hrs), Av.2 ??F (36.8 ??C), Min:97.9 ??F (36.6 ??C), Max:98.5 ??F (36.9 ??C) PE: GENERAL: confused but able to give history on dialysis today. HEENT: Normocephalic, atraumatic. PERRL. EOMI. No conjunctival injection. No icterus. Oropharynx clear without evidence of thrush or exudate. No evidence of peridontal disease. NECK: Supple without nuchal rigidity LYMPH: No cervical, axillary or inguinal lymphadenopathy. No neck masses HEART: RRR; No murmur, rubs, gallops. LUNGS: Clear to auscultation bilaterally without wheezing, rales, rhonchi. Normal respiratory effort. ABDOMEN: Soft, obese and distended positive bowel sounds. No rebound or guarding. EXT: No cyanosis, clubbing or edema : Normal appearing genitalia without Anders catheter. MSK: FROM without joint effusions noted SKIN: Warm and dry without cutaneous eruptions. NEURO: Oriented to PPT. No focal deficits. Mild decreased sensation in feet but good strength 5 outof 5 of upper and lower extremities PSYCHIATRIC: Impaired insight and judgement. Cooperative with PE ?? Laboratory Data Results from last 7 days Lab Units 04/29/2061704/28/20 0016 WBC 10*3/mm3 11.27* 15.73* HEMOGLOBIN g/dL 7.8* 9.3* HEMATOCRIT % 23.9* 27.2* PLATELETS 10*3/mm3 285 310 Results from last 7 days Lab Units 04/29/2018 SODIUM mmol/L 134* POTASSIUM mmol/L 4.1 CHLORIDE mmol/L 92* CO2 mmol/L 20.0* BUN mg/dL 98* CREATININE mg/dL 10.55* GLUCOSE mg/dL 196* CALCIUM mg/dL 9.1 Results from last 7 days Lab Units 04/29/20 0618 ALK PHOS U/L 82 BILIRUBIN mg/dL 0.2 ALT (SGPT) U/L 33 AST (SGOT) U/L 17 Estimated Creatinine Clearance: 11 mL/min (A) (by C-G formula based on SCr of 10.55 mg/dL (H)). Microbiology: Blood cultures negative to date Radiology: Imaging Results (Last 24 Hours) Procedure Component Value Units Date/Time MRI Lumbar Spine Without Contrast [[id number]] Collected: 04/28/20 1058 Updated: 04/29/20922 Narrative: EXAMINATION: MRI LUMBAR SPINE WO CONTRAST-04/28/2020: INDICATION: Lower back pain, evaluate for epidural abscess. Positive changes on CT scan; M54.41-Lumbago with sciatica, right side; M46.46-Discitis, unspecified, lumbar region; N17.9-Acute kidney failure, unspecified; Z99.2-Dependence on renal dialysis; D72.825-Bandemia, low back pain. TECHNIQUE: Routine multiplanar imaging was obtained of the lumbar spine without the administration of Gadolinium contrast. COMPARISON: CT scan of the lumbar spine dated 04/28/2020. FINDINGS: There is abnormality identified within the L5/S1 level with fluid identified in the disc space and abnormal fluid and signal intensity seen posterior to the L5 level. Bilateral pars defects identified of the L5/S1 level with mild anterolisthesis identified of L5 on S1. There is mass effect on the anterior aspect of the thecal sac. Findings highly concerning for an epidural abscess. There is narrowing identified of the spinal canal. The abnormal fluid collection measures approximately 4.3 x 1.4 x 1.1 cm in its largest dimension. There is signal changes identified within the inferior endplate of L5 and superior endplate of S1 suggesting osteomyelitis. There are degenerative changes identified of the L4/L5 level. No abnormal mass or fluid collection seen within the paraspinal muscles. The remainder of the disc spaces are preserved. Normal signal intensity within the conus. Impression: There are degenerative changes seen of the L4/L5 and L5/S1 levels with osteomyelitis and discitis seen of L5 and S1 with fluid collection identified in the epidural space concerning for an epidural abscess. Clinical correlation is needed. There is mass effect on the thecal sac with narrowing and mass effect on the nerve roots bilaterally. E: 04/28/2020 This report was finalized on 04/29/2020 9:[address] Abbie Carlson MD. PROBLEM LIST: Sepsis Lumbar spine discitis osteomyelitis with epidural abscess component Liver transplant on immunosuppression Fevers with chills Leukocytosis Increasing lower back pain Type 2 diabetes mellitus Hyponatremia End-stage renal disease on hemodialysis Kim ? ASSESSMENT: Patient is a 45-year-old with Ikm with end-stage liver disease underwent transplant on immunosuppressive therapy on home hemodialysis 5 days/week with end-stage renal disease recent right chest walldialysis cath removed with some erythema this was followed by increasing lower back pain which progressed to fevers chills difficulty with ambulation. He was seen at several ERs including [facility] given Keflex with some improvement. Now admitted with fevers chills leukocytosis MRI revealing lumbar spine discitis osteomyelitis and fluid seen on MRI and epidural space of L5-S1 but no overt neurologic deficits today. ?? Get old records from [facility], it appears no blood cultures were obtained at any ER visit and had partially treated case with Keflex with some improvement. His white blood cell count has further decreased with vancomycin and Zosyn will continue antibiotics follow-up neurosurgical plans, no worsening neurologic deficits today. ?? PLAN: Continue vancomycin Zosyn, renally dosed Monitor blood cultures Get records from outside ER visits Appreciate Dr. Garnica's evaluation contemplating surgery as he is concerned for large disc herniation at L4-5 with possible epidural abscess with ongoing pain and discomfort. Cayetano Rodriguez MD 04/29/2020 * Hilton Hamm MD - 04/29/2020 1:15 PM EDT LOS: 1 day Patient Care Team: Edgar Fournier MD as PCP - General (Family Medicine) Reason For Visit: F/U ESRD. SEEN ON DIALYSIS Subjective Review of Systems: Pulm: No soa CV: No CP Objective aspirin, 81 mg, Oral, Daily carBAMazepine, 200 mg, Oral, Nightly cycloSPORINE modified, 50 mg, Oral, BID docusate sodium, 100 mg, Oral, BID entecavir, 0.5 mg, Oral, Weekly epoetin giancarlo/giancarlo-epbx, 20,000 Units, Subcutaneous, 3x Weekly famotidine, 10 mg, Oral, Daily gabapentin, 100 mg, Oral, Nightly hydrALAZINE, 100 mg, Oral, TID insulin lispro, 0-9 Units, Subcutaneous, TID AC metoprolol tartrate, 100 mg, Oral, Q12H mycophenolate, 250 mg, Oral, BID NIFEdipine CC, 90 mg, Oral, BID piperacillin-tazobactam, 3.375 g, Intravenous, Once piperacillin-tazobactam, 3.375 g, Intravenous, Q12H sodium chloride, 10 mL, Intravenous, Q12H vancomycin (dosing per levels), , Does not apply, Daily vancomycin, 1,000 mg, Intravenous, Once Pharmacy to dose vancomycin, sodium chloride, 50 mL/hr, Last Rate: 75 mL/hr (04/29/20 0948) Vital Signs: Blood pressure 163/80, pulse 116, temperature 98.2 ??F (36.8 ??C), temperature source Oral, resp. rate 20, height 170.2 cm (67.01 ), weight 122 kg (268 lb 1.6 oz), SpO2 91 %. Flowsheet Rows First Filed Value Admission Height 170.2 cm (67 ) Documented at 04/27/2020 2355 Admission Weight 125 kg (275 lb) Documented at 04/27/2020 2355 04/28 0701 - 04/29 0700 In: 1160 [I.V.:310] Out: 2565 [Urine:25] Physical Exam: General Appearance: NAD, alert and cooperative, Ox3 Eyes: PER, conjunctivae and sclerae normal, no icterus Lungs: respirations regular and unlabored, no crepitus, clear to auscultation Heart/CV: regular rhythm & normal rate, no murmur, no gallop, no rub and no edema Abdomen: not distended, soft, non-tender, no masses, bowel sounds present Skin: No rash, Warm and dry. AVF. Radiology: Labs: Results from last 7 days Lab Units 04/29/20 0618 04/28/20 0016 WBC 10*3/mm3 11.27* 15.73* HEMOGLOBIN g/dL 7.8* 9.3* HEMATOCRIT % 23.9* 27.2* PLATELETS 10*3/mm3 285 310 Results from last 7 days Lab Units 04/29/20 0618 04/28/20 0016 SODIUM mmol/L 134* 129* POTASSIUM mmol/L 4.1 4.3 CHLORIDE mmol/L 92* 80* CO2 mmol/L 20.0* 19.0* BUN mg/dL 98* 109* CREATININE mg/dL 10.55* 14.39* CALCIUM mg/dL 9.1 9.3 MAGNESIUM mg/dL 2.3 2.4 ALBUMIN g/dL 3.50 3.60 Results from last 7 days Lab Units 04/29/20 0618 GLUCOSE mg/dL 196* Results from last 7 days Lab Units 04/29/20 0618 ALK PHOS U/L 82 BILIRUBIN mg/dL 0.2 ALT (SGPT) U/L 33 AST (SGOT) U/L 17 Results from last 7 days Lab Units 04/28/20 1143 PH, ARTERIAL pH units 7.277* PO2 ART mm Hg 88.1 PCO2, ARTERIAL mm Hg 46.8* HCO3 ART mmol/L 21.8 Results from last 7 days Lab Units 04/29/20 0144 COLOR UA Yellow CLARITY UA Clear PH, URINE <=5.0 SPECIFIC GRAVITY, URINE 1.017 GLUCOSE UA 100 mg/dL (Trace)* KETONES UA Negative BILIRUBIN UA Negative PROTEIN UA >=300 mg/dL (3+)* BLOOD UA Negative LEUKOCYTES UA Negative NITRITE UA Negative Estimated Creatinine Clearance: 11 mL/min (A) (by C-G formula based on SCr of 10.55 mg/dL (H)). Assessment Sepsis (CMS/HCC) KIM (nonalcoholic steatohepatitis) History of liver transplant (CMS/HCC) Immunosuppression (CMS/HCC) Type 2 diabetes mellitus (CMS/HCC) Altered mental state ESRD (end stage renal disease) (CMS/HCC) Hyponatremia Discitis Epidural abscess Leukocytosis Impression: ESRD. ANEMIA. Recommendations: HD TODAY. EPO. SURGERY LATER. Hilton Hamm MD 04/29/20 13:15 EDT * Yinka Garnica MD - 04/29/2020 11:34 AM EDT HOD# : 1 No events last night Still with significant pain Sepsis (CMS/HCC) KIM (nonalcoholic steatohepatitis) History of liver transplant (CMS/HCC) Immunosuppression (CMS/HCC) Type 2 diabetes mellitus (CMS/[facility]) Altered mental state ESRD (end stage renal disease) ([facility]) Hyponatremia Discitis Epidural abscess Leukocytosis Temp: [97.9 ??F (36.6 ??C)-98.5 ??F (36.9 ??C)] 98.2 ??F (36.8 ??C) Heart Rate: [96-119] 116 Resp: [18-20] 20 BP: (90-163)/(68-107) 163/80 I/O last 3 completed shifts: In: 1160 [I.V.:310; IV Piggyback:850] Out: 2565 [Urine:25; Other:2540] No intake/output data recorded. Vital signs were reviewed and documented in the chart EXAM Patient appeared in good neurologic function with normal comprehension CN grossly intact Moves all extremities to command effort dependent weakness may be right-sided foot weakness is subtle PLAN Patient can get an MRI with contrast reviewed films likely large disc herniation with cephalad migration either 4 5 inferiorly 5 1 cephalad question epidural abscess versus massive disc he has a lot of sacral pressure at the top of his beltline he is not able to get comfort I talked him about the risk and benefits of surgery I think it is reasonable to do a discectomy will make arrangements for this will start at 5 1 and potentially do laminectomy at L5 so that we can get circumferential decompression I also extensively explained the complex nature of his back he does have spondylolysis multiple medical comorbidities obviously and risk for complicated surgical outcome * [facility] - 04/29/2020 11:22 AM EDT Pharmacy Consult-Vancomycin Dosing Leoncio Rollins is a 45 y.o. male receiving vancomycin therapy. Indication: sepsis secondary to spine discitis osteomyelitis Consulting Provider: Keara Berg DO ID Consult: Cayetano Rodriguez MD Goal trough: 15-20mcg/ml Current Antimicrobial Therapy Anti-Infectives (From admission, onward) Ordered Dose/Rate Route Frequency Start Stop 04/29/20 0958 piperacillin-tazobactam (ZOSYN) 3.375 g in iso-osmotic dextrose 50 ml (premix) Ordering Provider: Cayetano Rodriguez MD 3.375 g over 4 Hours Intravenous Every 12 Hours Scheduled 04/29/20 1300 05/06/20 1359 04/28/20 1131 entecavir (BARACLUDE) tablet 0.5 mg (PATIENT SUPPLIED MED) Ordering Provider: Keara Berg DO 0.5 mg Oral Weekly 04/28/20 2130 04/28/20 1915 vancomycin (dosing per levels) Ordering Provider: Adam Colindres, PharmD Does not apply Daily 04/28/20201405/05/20 0859 04/28/20 1906 piperacillin-tazobactam (ZOSYN) 3.375 g in iso-osmotic dextrose 50 ml (premix) Ordering Provider: Cayetano Rodriguez MD 3.375 g over 30 Minutes Intravenous Once 04/28/20199904/28/20 1130 Pharmacy to dose vancomycin Ordering Provider: Keara Berg DO Does not apply Continuous PRN 04/28/20 1130 05/05/20 1129 04/28/20 0650 vancomycin 2500 mg/500 mL 0.9% NS IVPB ([facility]) Ordering Provider: Kym Garcia DO 20 mg/kg ?? 125 kg over 150 Minutes Intravenous Once 04/28/20 0652 04/28/20 1256 04/28/20 0650 cefTRIAXone (ROCEPHIN) 1 g/100 mL 0.9% NS (MBP) Ordering Provider: Kym Garcia DO 1 g over 30 Minutes Intravenous Once 04/28/20 0652 04/28/20 0859 Allergies Allergies as of 04/27/2020 (Not on File) Labs Results from last 7 days Lab Units 04/29/20 0618 04/28/20 0016 BUN mg/dL 98* 109* CREATININE mg/dL 10.55* 14.39* Results from last 7 days Lab Units 04/29/20 0618 04/28/20 0016 WBC 10*3/mm3 11.27* 15.73* Evaluation of Dosing Last Dose Received in the ED/Outside Facility: 2500mg in ED 04/28 Is Patient on Dialysis or 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 Inpatient scheduled for TRSa. Ht - 170.2 cm (67.01 ) Wt - 122 kg (268 lb 1.6 oz) Estimated Creatinine Clearance: 11 mL/min (A) (by C-G formula based on SCr of 10.55 mg/dL (H)). Intake & Output (last 3 days) 04/26 07 - 04/27 0700 04/27 07 - 04/28 0700 04/28 07 - 04/29 0704/29 07 - 04/30 0700 I.V. (mL/kg) 310 (2.5) IV Piggyback 850 Total Intake(mL/kg) 1160 (9.5) Urine (mL/kg/hr) 25 (0) Other 2540 Total Output 2565 Net -1405 Microbiology and Radiology Microbiology Results (last 10 days) Procedure Component Value - Date/Time MRSA Screen, PCR (Inpatient) - Swab, Nares [[id number]] (Normal) Collected: 04/29/20 0150 Lab Status: Final result Specimen: Swab from Nares Updated: 04/29/20911 MRSA PCR Negative Narrative: MRSA Negative COVID PRE-OP / PRE-PROCEDURE SCREENING ORDER (NO ISOLATION) - Swab, Nasopharynx [[id number]] (Normal) Collected: 04/28/20 1505 Lab Status: Final result Specimen: Swab from Nasopharynx Updated: 04/28/20 1644 Narrative: The following orders were created for panel order COVID PRE-OP / PRE-PROCEDURE SCREENING ORDER (NO ISOLATION) - Swab, Nasopharynx. Procedure Abnormality Status --------- ------ Respiratory Panel PCR w/...[[id number]] Normal Final result Please view results for these tests on the individual orders. 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 Swab in UTM/VTM, 3-4 HR TAT - Swab, Nasopharynx [[id number]] (Normal) Collected: 04/28/20 1505 Lab Status: Final result Specimen: Swab from Nasopharynx Updated: 04/28/20 164 ADENOVIRUS, PCR Not Detected Coronavirus 229E Not Detected Coronavirus HKU1 Not Detected Coronavirus NL63 Not Detected Coronavirus OC43 Not Detected COVID19 Not Detected Human Metapneumovirus Not Detected Human Rhinovirus/Enterovirus Not Detected Influenza A PCR Not Detected Influenza A H1 Not Detected Influenza A H1 2008 PCR Not Detected Influenza A H3 Not Detected Influenza B PCR Not Detected Parainfluenza Virus 1 Not Detected Parainfluenza Virus 2 Not Detected Parainfluenza Virus 3 Not Detected Parainfluenza Virus 4 Not Detected RSV, PCR Not Detected Bordetella pertussis pcr Not Detected Bordetella parapertussis PCR Not Detected Chlamydophila pneumoniae PCR Not Detected Mycoplasma pneumo by PCR Not Detected Narrative: Fact sheet for providers: https://docs.[employer]/wp-content/uploads/EFG5046-3952-QY6.1-EUA-Provi evp-Uloc-Xlyhv-3.pdf Fact sheet for patients: https://docs.[employer]/wp-content/uploads/CYD1104-4571-NZ5.8-BRI-Oijzer n-Nztj-Tmlex-1.pdf Blood Culture - Blood, Wrist, Right [[id number]] Collected: 04/28/20 0701 Lab Status: Preliminary result Specimen: Blood from Wrist, Right Updated: 04/29/20 0800 Blood Culture No growth at 24 hours Blood Culture - Blood, Arm, Right [[id number]] Collected: 04/28/20 0650 Lab Status: Preliminary result Specimen: Blood from Arm, Right Updated: 04/29/20 0800 Blood Culture No growth at 24 hours Evaluation of Level Results from last 7 days Lab Units 04/29/20 0618 VANCOMYCIN RM mcg/mL 21.50 Assessment/Plan: Pharmacy to dose vancomycin for sepsis. HD patient, goal trough 15 - 20mcg/mL. Patient received loading dose of vancomycin 2500mg (~20mg/kg) IV on 04/28 @ 1026. Patient received HD on 04/28 following loading dose of vancomycin. AM random resulted at 21.5. Will give Vancomycin 1000mg once today following dialysis. Will follow for additional HD schedule for continued vancomycin dosing. Pharmacy will continue to monitor renal function, cultures and sensitivities, and clinical status to adjust regimen as necessary. Thanks, Germán Resendiz, PharmD, [facility] [employer] Electric [employer] Technician 04/29/2020 10:56 EDT * Ginger Murphy RN - 04/29/2020 11:13 AM EDT Discharge Planning Assessment [facility] Patient Name: Leoncio Rollins Today's Date: 04/29/2020 Admit Date: 04/28/2020 Discharge Needs Assessment Row Name 04/29/20 1105 Living Environment Lives With spouse Current Living Arrangements home/apartment/condo Primary Care Provided by self Provides Primary Care For no one Family Caregiver if Needed spouse Able to Return to Prior Arrangements yes Transition Planning Patient/Family Anticipates Transition to home Transportation Anticipated family or friend will provide Discharge Plan Row Name 04/29/20 1105 Plan Plan Home Patient/Family in Agreement with Plan yes Plan Comments Spoke w/ patient at bedside. He lives w/ his in a one story in [facility]. [employer] SPECIALIST he was independent w/ ADLs and mobility. He has a home HD machine and dialyzes himself up to 5 timesa wk. ID is following, final abx plan per their recs. Patient denies any needs at this time. Plan is home. CM following. Final Discharge Disposition Code 01 - home or self-care Continued Care and Services - Admitted Since 04/28/2020 Coordination has not been started for this encounter. Demographic Summary Row Name 04/29/20 1104 General Information Arrived From home Reason for Consult discharge planning Functional Status Row Name 04/29/20 1105 Functional Status Usual Activity Tolerance moderate Current Activity Tolerance moderate Psychosocial No documentation. Abuse/Neglect No documentation. Legal No documentation. Substance Abuse No documentation. Patient Forms No documentation. Ginger Murphy RN * Estrella Tai MD - 04/29/2020 8:18 AM EDT Images from the original note were not included. [facility] Medicine Services PROGRESS NOTE Patient Name: Leoncio Rollins : 1975 Date of Admission: 04/28/2020 Primary Care Physician: Edgar Fournier MD Subjective Subjective CC: Back pain HPI: Patient currently receiving dialysis, continues to have significant back pain. We have just learnedthat the patient will be having surgery this afternoon right after dialysis. He has not had his immunosuppressants today. Review of Systems General: denies fevers or chills CV: denies chest pain Resp: denies shortness of breath Abd: denies abd pain, nausea Objective Objective Vital Signs: Temp: [97.9 ??F (36.6 ??C)-98.5 ??F (36.9 ??C)] 98.2 ??F (36.8 ??C) Heart Rate: [96-119] 116 Resp: [18-20] 20 BP: (90-163)/(68-107) 163/80 Physical Exam: Constitutional: Asleep but easily awoken, getting dialysis Respiratory: Clear to auscultation bilaterally, respiratory effort normal on room air Cardiovascular: Elderly tachycardic Gastrointestinal: Base positive bowel sounds, soft, nontender, nondistended Musculoskeletal: No bilateral ankle edema Psychiatric: Appropriate affect, cooperative Neurologic: Oriented x 3, strength symmetric in all extremities, Cranial Nerves grossly intact to confrontation, speech clear Results Reviewed: Results from last 7 days Lab Units 04/29/2061704/28/20192304/28/20 0016 WBC 10*3/mm3 11.27* -- 15.73* HEMOGLOBIN g/dL 7.8* -- 9.3* HEMATOCRIT % 23.9* -- 27.2* PLATELETS 10*3/mm3 285 -- 310 PROCALCITONIN ng/mL -- 4.48* -- Results from last 7 days Lab Units 04/29/2061704/28/20192304/28/20 0016 SODIUM mmol/L 134* -- 129* POTASSIUM mmol/L 4.1 -- 4.3 CHLORIDE mmol/L 92* -- 80* CO2 mmol/L 20.0* -- 19.0* BUN mg/dL 98* -- 109* CREATININE mg/dL 10.55* -- 14.39* GLUCOSE mg/dL 196* -- 285* CALCIUM mg/dL 9.1 -- 9.3 ALT (SGPT) U/L 33 -- 48* AST (SGOT) U/L 17 -- 24 TROPONIN T ng/mL -- 0.126* 0.154* Estimated Creatinine Clearance: 11 mL/min (A) (by C-G formula based on SCr of 10.55 mg/dL (H)). Microbiology Results Abnormal Procedure Component Value - Date/Time Blood Culture - Blood, Arm, Right [[id number]] Collected: 04/28/20 0650 Lab Status: Preliminary result Specimen: Blood from Arm, Right Updated: 04/29/20 0800 Blood Culture No growth at 24 hours Blood Culture - Blood, Wrist, Right [[id number]] Collected: 04/28/20 0701 Lab Status: Preliminary result Specimen: Blood from Wrist, Right Updated: 04/29/20 0800 Blood Culture No growth at 24 hours COVID PRE-OP / PRE-PROCEDURE SCREENING ORDER (NO ISOLATION) - Swab, Nasopharynx [[id number]] (Normal) Collected: 04/28/20 1505 Lab Status: Final result Specimen: Swab from Nasopharynx Updated: 04/28/20 1644 Narrative: The following orders were created for panel order COVID PRE-OP / PRE-PROCEDURE SCREENING ORDER (NO ISOLATION) - Swab, Nasopharynx. Procedure Abnormality Status --------- ------ Respiratory Panel PCR w/...[[id number]] Normal Final result Please view results for these tests on the individual orders. 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 Swab in UTM/VTM, 3-4 HR TAT - Swab, Nasopharynx [[id number]] (Normal) Collected: 04/28/20 1505 Lab Status: Final result Specimen: Swab from Nasopharynx Updated: 04/28/20 1644 ADENOVIRUS, PCR Not Detected Coronavirus 229E Not Detected Coronavirus HKU1 Not Detected Coronavirus NL63 Not Detected Coronavirus OC43 Not Detected COVID19 Not Detected Human Metapneumovirus Not Detected Human Rhinovirus/Enterovirus Not Detected Influenza A PCR Not Detected Influenza A H1 Not Detected Influenza A H1 2009 PCR Not Detected Influenza A H3 Not Detected Influenza B PCR Not Detected Parainfluenza Virus 1 Not Detected Parainfluenza Virus 2 Not Detected Parainfluenza Virus 3 Not Detected Parainfluenza Virus 4 Not Detected RSV, PCR Not Detected Bordetella pertussis pcr Not Detected Bordetella parapertussis PCR Not Detected Chlamydophila pneumoniae PCR Not Detected Mycoplasma pneumo by PCR Not Detected Narrative: Fact sheet for providers: https://docs.[employer]/wp-content/uploads/RCC6633-9720-LK4.1-EUA-Chantelli pxx-Uhko-Jtoms-3.pdf Fact sheet for patients: https://docs.[employer]/wp-content/uploads/JBD9580-0770-KC6.9-VTZ-Zencfd f-Kleh-Ufusk-1.pdf Imaging Results (Last 24 Hours) Procedure Component Value Units Date/Time MRI Lumbar Spine Without Contrast [[id number]] Collected: 04/28/20 1058 Updated: 04/28/20 1242 Narrative: EXAMINATION: MRI LUMBAR SPINE WO CONTRAST-04/28/2020: INDICATION: Lower back pain, evaluate for epidural abscess. Positive changes on CT scan; M54.41-Lumbago with sciatica, right side; M46.46-Discitis, unspecified, lumbar region; N17.9-Acute kidney failure, unspecified; Z99.2-Dependence on renal dialysis; D72.825-Bandemia, low back pain. TECHNIQUE: Routine multiplanar imaging was obtained of the lumbar spine without the administration of Gadolinium contrast. COMPARISON: CT scan of the lumbar spine dated 04/28/2020. FINDINGS: There is abnormality identified within the L5/S1 level with fluid identified in the disc space and abnormal fluid and signal intensity seen posterior to the L5 level. Bilateral pars defects identified of the L5/S1 level with mild anterolisthesis identified of L5 on S1. There is mass effect on the anterior aspect of the thecal sac. Findings highly concerning for an epidural abscess. There is narrowing identified of the spinal canal. The abnormal fluid collection measures approximately 4.3 x 1.4 x 1.1 cm in its largest dimension. There is signal changes identified within the inferior endplate of L5 and superior endplate of S1 suggesting osteomyelitis. There are degenerative changes identified of the L4/L5 level. No abnormal mass or fluid collection seen within the paraspinal muscles. The remainder of the disc spaces are preserved. Normal signal intensity within the conus. Impression: There are degenerative changes seen of the L4/L5 and L5/S1 levels with osteomyelitis and discitis seen of L5 and S1 with fluid collection identified in the epidural space concerning for an epidural abscess. Clinical correlation is needed. There is mass effect on the thecal sac with narrowing and mass effect on the nerve roots bilaterally. E: 04/28/2020 I have reviewed the medications: Scheduled Meds:aspirin, 81 mg, Oral, Daily carBAMazepine, 200 mg, Oral, Nightly cycloSPORINE modified, 50 mg, Oral, BID docusate sodium, 100 mg, Oral, BID entecavir, 0.5 mg, Oral, Weekly famotidine, 10 mg, Oral, Daily gabapentin, 100 mg, Oral, Nightly hydrALAZINE, 100 mg, Oral, TID insulin lispro, 0-9 Units, Subcutaneous, TID AC metoprolol tartrate, 100 mg, Oral, Q12H mycophenolate, 250 mg, Oral, BID NIFEdipine CC, 90 mg, Oral, BID piperacillin-tazobactam, 3.375 g, Intravenous, Once piperacillin-tazobactam, 3.375 g, Intravenous, Q12H sodium chloride, 10 mL, Intravenous, Q12H vancomycin (dosing per levels), , Does not apply, Daily Continuous Infusions:Pharmacy to dose vancomycin, PRN Meds:.??? acetaminophen OR acetaminophen OR acetaminophen ??? albumin human ??? calcium carbonate EX ??? dextrose ??? dextrose ??? glucagon (human recombinant) ??? HYDROcodone-acetaminophen ??? ondansetron ??? Pharmacy to dose vancomycin ??? sodium chloride Assessment/Plan Assessment & Plan Active Hospital Problems Diagnosis POA ??? Sepsis (CMS/HCC) [A41.9] Yes ??? KIM (nonalcoholic steatohepatitis) [K75.81] Unknown ??? History of liver transplant (CMS/HCC) [Z94.4] Not Applicable ??? Immunosuppression (CMS/HCC) [D89.9] Unknown ??? Type 2 diabetes mellitus (CMS/HCC) [E11.9] Unknown ??? Altered mental state [R41.82] Unknown ??? ESRD (end stage renal disease) (CMS/HCC) [N18.6] Unknown ??? Hyponatremia [E87.1] Unknown ??? Discitis [M46.40] Unknown ??? 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] Unknown ??? Leukocytosis [D72.829] Unknown Resolved Hospital Problems No resolved problems to display. Brief Hospital Course to date: Leoncio Rollins is a 45 y.o. male with history of liver transplant 2018 secondary to KIM, ESRD on home dialysis 5 days per week, DM who presents with 1 week of back pain, fever and AMS found to have discitis and epidural abscess on imaging. ?? Severe sepsis Discitis Epidural abscess - Recent fever, leukocytosis, AMS, lactic acidosis -Procalcitonin significantly elevated. - MRI with degenerative changes L5/L5; L5/S1; L5/S1 with osteomyelitis/discitis and fluid collection concerning for epidural abscess - BCx negative. -Respiratory viral panel negative - MRSA PCR pending -Neurosurgery consulted. Recommends aggressive antibiotic therapy and MRI with and without contrastthe lumbar spine to determine if surgery required. -ID consulted. Continue vancomycin and Zosyn, get outside hospital records. If worsening neurological status may need emergent incision and drainage. -Continue judicious pain control. Metabolic encephalopathy - Related to the above, uremia, and likely narcotics - Reduce gabapentin dose ?? Gastric distention -CT abdomen pelvis; no evidence of small bowel obstruction. There was distention of the stomach, correlate with gastroparesis versus gastric outlet obstruction. -Small amount of vomiting few days ago per Liver transplant on chronic immunosuppression - history of transplant at in 2018 for KIM - Will continue cyclosporine and cellcept -- patient's to bring in patient's entecavir -Cyclosporine level this morning. - GI and ID consulted ?? ESRD Uremia Hyponatremia - Currently on home dialysis 5 days per week without having dialysis for the last 3 days - Nephrology following ?? Anemia - no previous records; obtain additional workup ?? DM - SSI; adjust PRN ?? ?Substance abuse -Today I spent a long time talking with regarding his pain medications. Pharmacy and I reviewed Bello in the last time he was given pain medications on Bello was in February 2020. Per his he has been taking medications for pain and has been seen in the ER 5 times in the last month for his pain. She is unable to tell me what he was being prescribed and if he needs that is been is receivingopioid pain medications. They have not gone any medications from [place] and all prescriptions are obtained in [place] so should be on the [facility]. She also notes that they sometimes are concerned aboutthe amount of pain medications he takes and he gets upset when they bring it up. She then goes on to say that he is not a pill head and that he just wants his pain treated. At this point it is unclear if he does have an opioid dependence problem but I think it is in the realm of possibility, especially given the fact that he has an epidural abscess. DVT prophylaxis: SCDs ?? Disposition: I expect the patient to be discharged TBD. CODE STATUS: Code Status and Medical Interventions: Ordered at: 04/28/20 1125 Code Status: CPR Medical Interventions (Level of Support Prior to Arrest): Full More than 50% of time spent on coordination of care with nursing staff/case management/specialists as well as counseling patient/family on current illness/plan of care . Case discussed with: Nursing staff/case management, patient and family Total time of the encounter was 50 minutes. * Adam Colindres, PharmD - 04/28/2020 7:16 PM EDT Pharmacy Consult-Vancomycin Dosing Leoncio Rollins is a 45 y.o. male receiving vancomycin therapy. Indication: sepsis Consulting Provider: hospitalist ID Consult: yes Goal trough: 15-20mcg/ml Current Antimicrobial Therapy Anti-Infectives (From admission, onward) Ordered Dose/Rate Route Frequency Start Stop 04/28/201905 piperacillin-tazobactam (ZOSYN) 3.375 g in iso-osmotic dextrose 50 ml (premix) Ordering Provider: Cayetano Rodriguez MD 3.375 g over 4 Hours Intravenous Every 12 Hours 04/29/20 0200 05/06/20 0159 04/28/20 190 piperacillin-tazobactam (ZOSYN) 3.375 g in iso-osmotic dextrose 50 ml (premix) Ordering Provider: Cayetano Rodriguez MD 3.375 g over 30 Minutes Intravenous Once 04/28/20199904/28/20 1130 Pharmacy to dose vancomycin Ordering Provider: Keara Berg, Does not apply Continuous PRN 04/28/20 1130 05/05/20 1129 04/28/20 0650 vancomycin 2500 mg/500 mL 0.9% NS IVPB ([facility]) Ordering Provider: Kym Garcia, DO 20 mg/kg ?? 125 kg over 150 Minutes Intravenous Once 04/28/20 0652 04/28/20 1256 04/28/20 0650 cefTRIAXone (ROCEPHIN) 1 g/100 mL 0.9% NS (MBP) Ordering Provider: Kym Garcia, DO 1 g over 30 Minutes Intravenous Once 04/28/20 0652 04/28/20 0859 Allergies Allergies as of 04/27/2020 (Not on File) Labs Results from last 7 days Lab Units 04/28/20 0016 BUN mg/dL 109* CREATININE mg/dL 14.39* Results from last 7 days Lab Units 04/28/20 0016 WBC 10*3/mm3 15.73* Evaluation of Dosing Last Dose Received in the ED/Outside Facility: 2500mg in ED 04/28 Is Patient on Dialysis or Renal Replacement: yes Ht - 170.2 cm (67 ) Wt - 125 kg (275 lb) Estimated Creatinine Clearance: 8.1 mL/min (A) (by C-G formula based on SCr of 14.39 mg/dL (H)). Intake & Output (last 3 days) 04/26 07 - 04/27 0700 04/27 0701 - 04/28 0700 04/28 07 - 04/29 0700 I.V. (mL/kg) 310 (2.5) IV Piggyback 800 Total Intake(mL/kg) 1110 (8.9) Other 2540 Total Output 2540 Net -1430 Microbiology and Radiology Microbiology Results (last 10 days) Procedure Component Value - Date/Time COVID PRE-OP / PRE-PROCEDURE SCREENING ORDER (NO ISOLATION) - Swab, Nasopharynx [[id number]] (Normal) Collected: 04/28/20 1505 Lab Status: Final result Specimen: Swab from Nasopharynx Updated: 04/28/20 1644 Narrative: The following orders were created for panel order COVID PRE-OP / PRE-PROCEDURE SCREENING ORDER (NO ISOLATION) - Swab, Nasopharynx. Procedure Abnormality Status --------- ------ Respiratory Panel PCR w/...[[id number]] Normal Final result Please view results for these tests on the individual orders. 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 Swab in UTM/VTM, 3-4 HR TAT - Swab, Nasopharynx [[id number]] (Normal) Collected: 04/28/20 1505 Lab Status: Final result Specimen: Swab from Nasopharynx Updated: 04/28/20 1644 ADENOVIRUS, PCR Not Detected Coronavirus 229E Not Detected Coronavirus HKU1 Not Detected Coronavirus NL63 Not Detected Coronavirus OC43 Not Detected COVID19 Not Detected Human Metapneumovirus Not Detected Human Rhinovirus/Enterovirus Not Detected Influenza A PCR Not Detected Influenza A H1 Not Detected Influenza A H1 2009 PCR Not Detected Influenza A H3 Not Detected Influenza B PCR Not Detected Parainfluenza Virus 1 Not Detected Parainfluenza Virus 2 Not Detected Parainfluenza Virus 3 Not Detected Parainfluenza Virus 4 Not Detected RSV, PCR Not Detected Bordetella pertussis pcr Not Detected Bordetella parapertussis PCR Not Detected Chlamydophila pneumoniae PCR Not Detected Mycoplasma pneumo by PCR Not Detected Narrative: Fact sheet for providers: https://docs.[employer]/wp-content/uploads/WHJ3184-6009-XW2.1-EUA-Provi wii-Vpat-Aldbu-3.pdf Fact sheet for patients: https://docs.[employer]/wp-content/uploads/BJT1780-4395-DR2.7-BTO-Jstpsk a-Bqem-Zfekg-1.pdf Evaluation of Level Assessment/Plan: 1. Pharmacy to dose vancomycin for sepsis with a goal trough of 15-20 mcg/mL. 2. Patient received a loading dose of vancomycin 2500mg in ED @ 1026 on 04/28 and then underwent hemodialysis later that evening. 3. Vancomycin random ordered for 16 AM. To assess clearance. 4. Monitor renal function, cultures and sensitivities, and clinical status, and adjust regimen as necessary. Pharmacy will continue to follow. Thanks, Adam Colindres, PharmD 04/28/2020 19:10 EDT documented in this encounter H&P Notes * Keara Berg, DO - 04/28/2020 11:52 AM EDT Images from the original note were not included. [facility] Medicine Services HISTORY AND PHYSICAL Patient Name: Leoncio Rollins : 1975 Primary Care Physician: Edgar Fournier MD Date of admission: 04/28/2020 Subjective Subjective Chief Complaint: Back pain, AMS HPI: Leoncio Rollins is a 45 y.o. male with history of liver transplant 2018 secondary to KIM, ESRD on home dialysis 5 days per week, DM who presents with 1 week of back pain, fever and AMS. Patient unable to provide much detail for history. Called patients to discuss patient's care. States he was on the floor working on his dialysis machine 1 week ago and stood up and turned a different way causing acute pain. States he has been laying in bed for multiple days since this time. states this is the 5th time he has been in the ED and they told him it was a flair of a previousinjury. States he doesn't like pain. States he can't tolerate it and he lays around, will take narcotics (prescribed) and will get confused. Fever of 102 over the weekend. States at [place] [facility] they gave him a prescription for keflex and he has not had a fever since. Poor PO intake in 4 days. Small amount of emesis that was dark over the weekend. Last BM was Monday. States prior to this patient was functioning fine with no complaints of back pain. He was compliantwith his dialysis prior to this. Started on dialysis in June or July. States he had dialysis access in his right chest that was removed 2 weeks ago. He has been accessing his left arm five days a week for dialysis at home. denies COVID exposure but he has been to the ED multiple times. Review of Systems Difficult to obtain. Denies current pain and states he had dysuria All other systems reviewed and are negative. Personal History Past Medical History: Diagnosis Date ??? Diabetes mellitus (CMS/HCC) ??? Dialysis patient (CMS/HCC) ??? Hemorrhage THROAT VARICIES ??? Liver transplanted (CMS/HCC) Past Surgical History: Procedure Laterality Date ??? CHOLECYSTECTOMY Family History: family history is not on file. Otherwise pertinent FHx was reviewed and unremarkable. Social History: reports that he has never smoked. He has never used smokeless tobacco. He reports that he does not drink alcohol or use drugs. Social History Social History Narrative ??? Not on file Medications: Available home medication information reviewed. (Not in a hospital admission) No Known Allergies Objective Objective Vital Signs: Temp: [97.8 ??F (36.6 ??C)-98.5 ??F (36.9 ??C)] 98.5 ??F (36.9 ??C) Heart Rate: [94-110] 94 Resp: [18-20] 20 BP: (107-159)/(64-117) 136/87 Physical Exam Constitutional: drowsy but will wake Eyes: PERRLA, sclerae anicteric, no conjunctival injection HENT: NCAT, mucous membranes dry Neck: Supple, no thyromegaly, no lymphadenopathy, trachea midline Respiratory: no coughing; Cardiovascular: RRR, no murmurs, rubs, or gallops, palpable pedal pulses bilaterally Gastrointestinal: Positive bowel sounds, soft, nontender, nondistended Musculoskeletal: No bilateral ankle edema, no clubbing or cyanosis to extremities Psychiatric: Appropriate affect, cooperative Neurologic: Oriented x 3, strength symmetric in all extremities, Cranial Nerves grossly intact to confrontation, speech clear Skin: No rashes Results Reviewed: I have personally reviewed current lab and radiology data. Results from last 7 days Lab Units 04/28/20 0016 WBC 10*3/mm3 15.73* HEMOGLOBIN g/dL 9.3* HEMATOCRIT % 27.2* PLATELETS 10*3/mm3 310 Results from last 7 days Lab Units 04/28/20 0701 04/28/20 0016 SODIUM mmol/L -- -- 129* POTASSIUM mmol/L -- -- 4.3 CHLORIDE mmol/L -- -- 80* CO2 mmol/L -- -- 19.0* BUN mg/dL -- -- 109* CREATININE mg/dL -- -- 14.39* GLUCOSE mg/dL -- -- 285* CALCIUM mg/dL -- -- 9.3 ALT (SGPT) U/L -- -- 48* AST (SGOT) U/L -- -- 24 TROPONIN T ng/mL -- -- 0.154* LACTATE mmol/L 1.3 < > -- < > = values in this interval not displayed. Estimated Creatinine Clearance: 8.1 mL/min (A) (by C-G formula based on SCr of 14.39 mg/dL (H)). Brief Urine Lab Results None Imaging Results (Last 24 Hours) Procedure Component Value Units Date/Time MRI Lumbar Spine Without Contrast [[id number]] Collected: 04/28/20 1058 Updated: 04/28/20 1111 Narrative: EXAMINATION: MRI LUMBAR SPINE WO CONTRAST- INDICATION: lower back pain, eval for epid abscess. positive changes on CT scan; M54.41-Lumbago with sciatica, right side; M46.46-Discitis, unspecified, lumbar region; N17.9-Acute kidney failure, unspecified; Z99.2-Dependence on renal dialysis; D72.825-Bandemia low back pain TECHNIQUE: Routine multiple imaging is obtained lumbar spine without the ministration gadolinium contrast. COMPARISON: CT scan of the lumbar spine dated 04/28/2020 FINDINGS: There is abnormality identified within the L5/S1 level with fluid identified in the disc space and abnormal fluid in signal intensity seen posterior to the L5 level. Bilateral pars defect identified of the L5/S1 level with mild anterolisthesis identified of L5 on S1. There is mass effect on the anterior aspect of the thecal sac. Findings highly concerning for an epidural abscess. There is narrowing identified of the spinal canal. The abnormal fluid collection measures approximately 4.3 x 1.4 x 1.1 cm in its largest dimension. There is signal changes identified within the inferior endplate of L5 and superior endplate of S1 suggesting osteomyelitis. There are degenerative changes identified at the L4/L5 level. No abnormal mass or fluid collection seen within the paraspinal muscles. The remainder of the disc spaces are preserved. Normal signal intensity within the conus. Impression: There are degenerative changes seen at the L4/L5 and L5/S1 levels with osteophyte osteomyelitis and discitis seen of L5 and S1 with fluid collection identified in the epidural space concerning for an epidural abscess. Clinical correlation is needed. There is mass effect on the thecal sac with narrowing and mass effect on the nerve roots bilaterally. CT Abdomen Pelvis Without Contrast [[id number]] Collected: 04/28/20640 Updated: 04/28/20643 Narrative: INDICATION: Post liver transplant with generalized abdominal fullness abdominal pain and low back pain with shortness of breath. TECHNIQUE: CT of the abdomen and pelvis without contrast. Coronal and sagittal reconstructions were obtained. Radiation dose reduction techniques included automated exposure control or exposure modulation basedon body size. Radiation audit for number of CT and nuclear cardiology exams performed in the last year: 0. COMPARISON: None available. FINDINGS: Lung bases: See separate CT chest today Abdomen: Study is limited by lack of IV contrast media. Stomach is very distended with fluid. Please correlate for clinical evidence of gastroparesis or gastric outlet obstruction. There are multiple right upper quadrant surgical clips consistent with liver transplantation. Noncontrast study does not accurately evaluate liver parenchyma. The patient's post cholecystectomy. Unenhanced pancreas is unremarkable. There are probably some left upper quadrant varices. The adrenal glands are unremarkable. There are are no intrarenal calculi. There is bilateral renal parenchymal thinning. There is no hydronephrosis. There is mild perinephric stranding. There is no evidence for abdominal aortic aneurysm. The appendix is radiographically unremarkable. There is no evidence for small bowel obstruction. There is a fat-containing midline anterior abdominal wall hernia with a broad neck that measures about 6.8 cm diameter. The hernia sac is about 11 x 9 cm mL and SI dimension and 4 cm AP dimension. There is colonic gas and stool prominence of the colon but no obstruction point. Pelvis: The bladder is partly decompressed and unremarkable. There is a small fat-containing right inguinal hernia. There is no free fluid in the pelvis. There is no free intraperitoneal air. Impression: 1. Findings consistent with previous liver transplant. 2. Marked distention of the stomach with fluid. Correlate for clinical evidence of gastroparesis versus gastric outlet obstruction. 3. There is a fat-containing anterior abdominal wall incisional hernia sac without bowel obstruction. 4. The appendix is radiographically unremarkable. 5. There our probably some left upper quadrant varices. Study is limited by lack of IV contrast media. Signer Name: Heather Fried MD Signed: 04/28/2020 6:41 AM Workstation Name: [id number] CT Chest Without Contrast [[id number]] Collected: 04/28/20633 Updated: 04/28/20635 Narrative: INDICATION: Liver transplant with generalized abdominal pain low back pain and shortness of breath. ER evaluation TECHNIQUE: CT of the chest without contrast. Coronal and sagittal reconstructions were obtained. Radiation dose reduction techniques included automated exposure control or exposure modulation based on body size. Radiation audit for number of CT and nuclear cardiology exams performed in the last year: 0. COMPARISON: Earlier chest x-ray today FINDINGS: Study is limited by lack of IV contrast media. There is no axillary lymphadenopathy. The esophagus is patulous with wall thickening diffusely and fluid-filled/air-fluid level. Visualized stomach is very distended with fluid. See the abdomen dictation. There is evidence for old granulomatous disease. There is no lymphadenopathy in the mediastinum or debbi by measurement criteria on this noncontrast exam. Heart size is top normal. There is no definite pleural effusion. There is apparently left pleural thickening and areas of parenchymal scarring. There is distortion of parenchymal architecture in the left upper lobe and left upper hilum which is probably chronic. Comparison to any interval outsidechest CT is recommended to confirm stability. There is no pneumothorax. There is no acute infiltrate. There is no congestive failure. Impression: 1. The esophagus is patulous with circumferential wall thickening. Its distended with fluid and air-fluid level. The stomach is distended. See the separate abdomen pelvis dictation. 2. Apparent left pleural thickening and parenchymal scarring with distortion of the left superior hilum. A believe these findings are chronic but recommend comparison to outside chest CT to confirm long-term stability. Please correlate with any history. Study is limited by lack of IV contrast media. 3. Otherwise no active disease is seen in the chest. Signer Name: Heather Fried MD Signed: 04/28/2020 6:34 AM Workstation Name: [facility] [place] CT Lumbar Spine Without Contrast [[id number]] Collected: 04/28/20627 Updated: 04/28/20629 Narrative: INDICATION: Pain and short of breath. Liver transplant patient TECHNIQUE: CT of the lumbar spine without contrast. Coronal and sagittal reconstructions were obtained. Radiation dose reduction techniques included automated exposure control or exposure modulation based on body size. Radiation audit for number of CT and nuclear cardiology exams performed in the last year: 0. COMPARISON: None FINDINGS: There is 3 to 4 mm of grade 1 anterolisthesis of L5 on S1 secondary to chronic L5 pars defects. There is loss of disc height, vacuum disc formation, endplate spondylosis at the inferior endplate of L5. There is irregularity of the inferior endplate of L5 some of which is sclerotic and some of which is nonsclerotic. This could be due to Schmorl's node formation/degenerative disc disease but discitis is not excluded. There are tiny air densities withinthe canal posterior to L4-5 and L5- S1. Scan be seen in the setting of vacuum disc extrusion but the amount seen is more diffuse than typical. An alternateconsideration in an immunocompromised patient with back pain is epidural abscess/discitis and osteomyelitis. Recommend correlation with an MRI lumbar spine with and without contrast if the patient is candidate. Otherwise there is no acute fracture or bone destruction. At T11-12 is facet degenerative change with mild to mass effect on the thecal sac. At T12-L1, no bony canal or foraminal compromise. At L1-2, no canal or foraminal compromise. At L2-3, no canal or foraminal compromise. At L3-4, no canal or foraminal compromise. At L4-5, there is a posterior disc bulge and mild facet degenerative change. Air bubbles are seen in the canal. There is at least some effacement of the thecal sac by the disc bulge. There is likely mild foraminal narrowing. L5-S1 as discussed above. There is no bony canal stenosis. Pars defects accounting for the anterolisthesis. There is bilateral bony foraminal narrowing. Impression: 1. Grade 1 anterolisthesis of L5 on S1 secondary to chronic L5 pars defects. 2. There are air densities within the canal for 5 L5-S1 level. This can be seen in the setting of extruded vacuum disc formation but possibility of an epidural abscess is in the differential and should be excluded with MRI lumbar spine with and without contrast. Additionally there is endplate irregularity at the inferior endplate of L5 could be due to severe degenerative disc disease but alternate diagnosis includes discitis. Signer Name: Heather Fried MD Signed: 04/28/2020 6:28 AM Workstation Name: [facility] XR Chest 1 View [[id number]] Collected: 04/28/20 0158 Updated: 09/15/20 0200 Narrative: CR Chest 1 Vw INDICATION: Weakness and dizziness on arrival COMPARISON: None available. FINDINGS: Single portable AP view(s) of the chest. The heart and mediastinal contours are normal. The lungs are clear. No pneumothorax or pleural effusion. Impression: No acute cardiopulmonary findings. Signer Name: Gabino Herr MD Signed: 04/28/2020 1:58 AM Workstation Name: [facility]- [facility] [place] Assessment/Plan Assessment & Plan Active Hospital Problems Diagnosis POA ??? Sepsis (CMS/HCC) [A41.9] Yes ??? KIM (nonalcoholic steatohepatitis) [K75.81] Unknown ??? History of liver transplant (CMS/HCC) [Z94.4] Not Applicable ??? Immunosuppression (CMS/HCC) [D89.9] Unknown ??? Type 2 diabetes mellitus (CMS/HCC) [E11.9] Unknown ??? Altered mental state [R41.82] Unknown ??? ESRD (end stage renal disease) (CMS/HCC) [N18.6] Unknown ??? Hyponatremia [E87.1] Unknown ??? Discitis [M46.40] Unknown ??? 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] Unknown ??? Leukocytosis [D72.829] Unknown Leoncio Rollins is a 45 y.o. male with history of liver transplant 2018 secondary to KIM, ESRD on home dialysis 5 days per week, DM who presents with 1 week of back pain, fever and AMS found to have discitis and epidural abscess on imaging. Severe sepsis Discitis Epidural abscess - Recent fever, leukocytosis, AMS, lactic acidosis - MRI with degenerative changes L5/L5; L5/S1; L5/S1 with osteomyelitis/discitis and fluid collection concerning for epidural abscess - BCx pending, MRSA PCR pending - Change to zosyn/vanc - ID and neurosurgery consult - Obtain COVID screening - Holding narcotics; tylenol PRN Metabolic encephalopathy - Related to the above, uremia, and likely narcotics - Reduce gabapentin dose - PRN tylenol -- currently pain controlled Gastric distention -CT abdomen pelvis; no evidence of small bowel obstruction -Small amount of vomiting few days ago per -Consult GI Liver transplant on chronic immunosuppression - history of transplant at in 2018 for KIM - Will continue cyclosporine and cellcept -- patient's to bring in patient's entecavir - GI and ID consulted ESRD Uremia Hyponatremia - Currently on home dialysis 5 days per week without having dialysis for the last 3 days - Nephrology consult Anemia - no previous records; obtain additional workup DM - SSI; adjust PRN DVT prophylaxis: SCDs CODE STATUS: Reviewed with - full code Code Status and Medical Interventions: Ordered at: 04/28/20 1125 Code Status: CPR Medical Interventions (Level of Support Prior to Arrest): Full Admission Status: I believe this patient meets INPATIENT status due to severe sepsis, need for IV antibiotics and specialty consultation. I feel patient???s risk for adverse outcomes and need for care warrant INPATIENT evaluation and I predict the patient???s care encounter to likely last beyond 2 midnights. Electronically signed by Keara Berg DO, 04/28/20, 12:38 PM EDT. documented in this encounter Procedure Notes * Dewey Betancourt MD - 05/04/2020 7:13 PM EDT EGD ? Mild Luz, Scarring form prior EBL Stenosis at [facility]. Trauma at [facility] vs Small MWT 500 ml bilious fluid aspirated from stomach No ulcers seen REC -Continue PPI -Add nystatin documented in this encounter Consult Notes * Dewey Vidal MD - 04/29/2020 7:41 PM EDTAssociated Order(s): IP CONSULT TO GASTROENTEROLOGY [facility] Gastroenterology Consult Referring Provider: Keara Berg DO PCP: Edgar Fournier MD Reason for Consultation: History of liver transplant Chief complaint: Back pain History of present illness: Leoncio Rollins is a 45 y.o. male who is admitted with 2-week history of back pain. He is found to have lumbar discitis and epidural abscess. Patient had liver transplant about 2-1/2 years ago at [facility]. He has never had problems with rejection. He is maintained on CellCept to 150 mg twice daily, and cyclosporine 50 mg twice daily. Allergies: Patient has no known allergies. Scheduled Meds: aspirin, 81 mg, Oral, Daily buprenorphine, 0.3 mg, Injection, Once carBAMazepine, 200 mg, Oral, Nightly [OCT Hold] cycloSPORINE modified, 50 mg, Oral, BID [OCT Hold] docusate sodium, 100 mg, Oral, BID [Oct] entecavir, 0.5 mg, Oral, Weekly [Oct] epoetin giancarlo/giancarlo-epbx, 20,000 Units, Subcutaneous, 3x Weekly famotidine, 10 mg, Oral, Daily gabapentin, 100 mg, Oral, Nightly hydrALAZINE, 100 mg, Oral, TID [OCT Hold] insulin lispro, 0-9 Units, Subcutaneous, TID AC metoprolol tartrate, 100 mg, Oral, Q12H mycophenolate, 250 mg, Oral, BID NIFEdipine CC, 90 mg, Oral, BID [Oct] piperacillin-tazobactam, 3.375 g, Intravenous, Once [Oct] piperacillin-tazobactam, 3.375 g, Intravenous, Q12H [Oct] sodium chloride, 10 mL, Intravenous, Q12H [Oct] vancomycin (dosing per levels), , Does not apply, Daily Infusions: Pharmacy to dose vancomycin, sodium chloride, 50 mL/hr, Last Rate: 600 mL/hr (04/29/201922) sodium chloride, 9 mL/hr, Last Rate: 9 mL/hr (04/29/20 1608) PRN Meds: ??? [Oct] acetaminophen OR [Oct] acetaminophen OR [Oct] acetaminophen ??? [Oct] albumin human ??? [Oct] albumin human ??? [Oct] calcium carbonate EX ??? [Oct] dextrose ??? [Oct] dextrose ??? [Oct] glucagon (human recombinant) ??? [Oct] HYDROcodone-acetaminophen ??? [Oct] HYDROmorphone ??? [Oct] ondansetron ??? Pharmacy to dose vancomycin ??? [Oct] sodium chloride ??? sodium chloride ??? sodium chloride ??? terazosin Home Meds: Medications Prior to Admission Medication Sig Dispense Refill Last Dose ??? ALPRAZolam (XANAX) 1 MG tablet Take 1 mg by mouth Daily. Take before dialysis Past Week at Unknown time ??? aspirin 81 MG chewable tablet Chew 81 mg Daily. ??? carBAMazepine (TEGretol) 200 MG tablet Take 200 mg by mouth Every Night. For feet cramps ??? cephalexin (KEFLEX) 500 MG capsule Take 500 mg by mouth 2 (Two) Times a Day. For 7 days, started on 04-24-20 04/27/2020 at Unknown time ??? cyclobenzaprine (FLEXERIL) 10 MG tablet Take 10 mg by mouth 3 (Three) Times a Day As Needed forMuscle Spasms. 04/27/2020 at Unknown time ??? cycloSPORINE (sandIMMUNE) 25 MG capsule Take 25 mg by mouth 2 (Two) Times a Day. ??? doxazosin (CARDURA) 8 MG tablet Take 8 mg by mouth At Night As Needed. ??? entecavir (BARACLUDE) 0.5 MG tablet Take 0.5 mg by mouth Daily. For 7 days, started 04-27-20 04/27/2020 at Unknown time ??? famotidine (PEPCID) 20 MG tablet Take 20 mg by mouth 2 (Two) Times a Day As Needed for Heartburn. ??? gabapentin (NEURONTIN) 800 MG tablet Take 1,200 mg by mouth 3 (Three) Times a Day. 04/27/2020 atUnknown time ??? hydrALAZINE (APRESOLINE) 50 MG tablet Take 300 mg by mouth 3 (Three) Times a Day. ??? hydrOXYzine pamoate (VISTARIL) 25 MG capsule Take 25 mg by mouth Daily. 1 hr prior to dialysis Past Week at Unknown time ??? insulin NPH (humuLIN N,novoLIN N) 100 UNIT/ML injection Inject under the skin into the appropriate area as directed 2 (Two) Times a Day Before Meals. 48 units qam and 15 units qhs 04/27/2020 at Unknown time ??? metoprolol tartrate (LOPRESSOR) 100 MG tablet Take 100 mg by mouth 2 (Two) Times a Day. ??? mycophenolate (CELLCEPT) 250 MG capsule Take 250 mg by mouth 2 (Two) Times a Day. ??? mycophenolate (CELLCEPT) 500 MG tablet Take 500 mg by mouth 2 (Two) Times a Day. 04/27/2020 at Unknown time ??? NIFEdipine CC (ADALAT CC) 90 MG 24 hr tablet Take 90 mg by mouth 2 (Two) Times a Day. 04/27/2020at Unknown time ??? ondansetron (ZOFRAN) 4 MG tablet Take 4 mg by mouth Every 8 (Eight) Hours As Needed for Nausea or Vomiting. ??? vitamin D (ERGOCALCIFEROL) 1.25 MG (17199 UT) capsule capsule Take 50,000 Units by mouth 2 (Two) Times a Week. Takes on Monday and ROS: Review of Systems Constitutional: Positive for activity change and fatigue. Negative for appetite change and unexpected weight change. HENT: Negative for mouth sores, nosebleeds and trouble swallowing. Eyes: Negative. Respiratory: Negative. Negative for cough, chest tightness, shortness of breath, wheezing and stridor. Gastrointestinal: Negative for abdominal distention, abdominal pain, blood in stool, constipation, diarrhea, nausea and vomiting. Endocrine: Negative. Genitourinary: Positive for decreased urine volume. Patient is on hemodialysis. Musculoskeletal: Positive for back pain. Allergic/Immunologic: Positive for immunocompromised state. Neurological: Positive for weakness. Negative for tremors, seizures, syncope, light-headedness and headaches. Hematological: Negative. Negative for adenopathy. Does not bruise/bleed easily. Psychiatric/Behavioral: Negative. Negative for agitation and behavioral problems. PAST MED HX: Past Medical History: Diagnosis Date ??? Diabetes mellitus (CMS/HCC) ??? Dialysis patient (CMS/HCC) ??? Hemorrhage THROAT VARICIES ??? Liver transplanted (CMS/HCC) PAST SURG HX: Past Surgical History: Procedure Laterality Date ??? CHOLECYSTECTOMY FAM HX: History reviewed. No pertinent family history. SOC HX: Social History Socioeconomic History ??? Marital status: Spouse name: Not on file ??? Number of children: Not on file ??? Years of education: Not on file ??? Highest education level: Not on file Tobacco Use ??? Smoking status: Never Smoker ??? Smokeless tobacco: Never Used Substance and Sexual Activity ??? Alcohol use: Never Frequency: Never ??? Drug use: Never PHYSICAL EXAM BP 131/86 (BP Location: Right arm, Patient Position: Lying) Pulse 106 Temp 98.5 ??F (36.9 ??C) (Tympanic) Resp 18 Ht 170.2 cm (67 ) Wt 122 kg (268 lb) SpO2 92% BMI 41.97 kg/m?? Wt Readings from Last 3 Encounters: 04/29/20 122 kg (268 lb) ,body mass index is 41.97 kg/m??. Physical Exam Vitals signs and nursing note reviewed. Constitutional: General: He is not in acute distress. Appearance: Normal appearance. He is obese. He is not toxic-appearing. HENT: Head: Normocephalic. Nose: Nose normal. Mouth/Throat: Pharynx: No oropharyngeal exudate. Eyes: General: No scleral icterus. Conjunctiva/sclera: Conjunctivae normal. Neck: Musculoskeletal: Normal range of motion. Cardiovascular: Rate and Rhythm: Normal rate. Pulses: Normal pulses. Pulmonary: Effort: Pulmonary effort is normal. Abdominal: General: Bowel sounds are normal. There is no distension. Palpations: Abdomen is soft. Tenderness: There is no abdominal tenderness. There is no guarding. Comments: Obesity limits exam for organomegaly and masses. Genitourinary: Comments: Deferred Musculoskeletal: Normal range of motion. General: No tenderness or deformity. Skin: General: Skin is warm and dry. Capillary Refill: Capillary refill takes less than 2 seconds. Findings: No rash. Neurological: Mental Status: He is alert and oriented to person, place, and time. Psychiatric: Mood and Affect: Mood normal. Behavior: Behavior normal. Results Review: I reviewed the patient's new clinical results. Lab Results Component Value Date WBC 11.27 (H) 04/29/2020 HGB 7.4 (L) 04/29/2020 HGB 7.8 (L) 04/29/2020 HGB 9.3 (L) 04/28/2020 HCT 23.0 (L) 04/29/2020 MCV 98.8 (H) 04/29/2020 PLT 285 04/29/2020 No results found for: INR Lab Results Component Value Date GLUCOSE 127 (H) 04/29/2020 BUN 48 (H) 04/29/2020 CREATININE 5.03 (H) 04/29/2020 EGFRIFNONA 12 (L) 04/29/2020 EGFRIFAFRI 04/29/2020 Comment: <15 Indicative of kidney failure. BCR 9.5 04/29/2020 NA 132 (L) 04/29/2020 K 4.2 04/29/2020 CO2 19.0 (L) 04/29/2020 CALCIUM 9.0 04/29/2020 ALBUMIN 3.50 04/29/2020 ALKPHOS 82 04/29/2020 BILITOT 0.2 04/29/2020 ALT 33 04/29/2020 AST 17 04/29/2020 ASSESSMENTS/PLANS History of Kim cirrhosis. History of liver transplant in 2018 Immunosuppressed. End-stage renal disease on hemodialysis. >> Generally do not recommend discontinuing maintenance immunosuppression for intercurrent infections. >> We will attempt to discuss with the patient's nursing home assistant at [place] tomorrow. I discussed the patient's findings and my recommendations with patient Dewey Hernandez. MD Young 04/29/20 19:41 EDT * Yinka Garnica MD - 04/28/2020 6:14 PM EDTAssociated Order(s): IP CONSULT TO NEUROSURGERY NEUROSURGERY CONSULTATION Referring Provider: No ref. provider found Patient Care Team: Edgar Fournier MD as PCP - General (Family Medicine) Chief Complaint: Back and right leg pain History of Present Illness: Leoncio Rollins is a 45-year-old gentleman with a PMH significant for KIM (s/p liver transplant 2018 on cyclosporine and CellCept), ESRD (5X weekly dialysis), DM 2 who presented to [facility] ED today with complaints of back pain and fever. Patient developed insidious onset of back pain around 1-2 weeks ago. Patient's states that symptoms worsened when he was bending over working on his dialysis machine last week. Since this episode he has been bedridden. He has been seen in [place] ED multiple times where they prescribed Keflex. Ultimately patient and decided to present to our facility for a higher level of care. Presently, Mr. Rollins endorses pain in his low back that radiates to his right lower extremity. He denies sensory alteration in his lower extremities. He denies saddle distribution numbness or sensory alteration. He states that he has been constipated for the last few days. He is still able to makesome urine, however denies urinary incontinence. No incontinence of bowel. He states that he can move his lower extremities without issue, however has not been able to stand independently secondary to generalized weakness. He denies a history of previous spinal intervention. Review of Systems: Musculoskeletal and Neurological systems were reviewed and are negative except for: Musculoskeletal: positive for See HPI Neurological: positive for See HPI History: Past Medical History: Diagnosis Date ??? Diabetes mellitus (CMS/HCC) ??? Dialysis patient (CMS/HCC) ??? Hemorrhage THROAT VARICIES ??? Liver transplanted (CMS/HCC) , Past Surgical History: Procedure Laterality Date ??? CHOLECYSTECTOMY , History reviewed. No pertinent family history., Social History Tobacco Use ??? Smoking status: Never Smoker ??? Smokeless tobacco: Never Used Substance Use Topics ??? Alcohol use: Never Frequency: Never ??? Drug use: Never , (Not in a hospital admission) and Allergies: Patient has no known allergies. Physical Exam: Vital Signs: Blood pressure 147/79, pulse 96, temperature 98.5 ??F (36.9 ??C), temperature source Temporal, resp. rate 18, height 170.2 cm (67 ), weight 125 kg (275 lb), SpO2 94 %. Physical Exam Constitutional: General: He is not in acute distress. Appearance: He is obese. He is not toxic-appearing. HENT: Head: Normocephalic and atraumatic. Eyes: Extraocular Movements: Extraocular movements intact. Pupils: Pupils are equal, round, and reactive to light. Musculoskeletal: Normal range of motion. Skin: General: Skin is warm and dry. Neurological: General: No focal deficit present. Mental Status: He is alert and oriented to person, place, and time. Mental status is at baseline. Sensory: Sensation is intact. No sensory deficit. Motor: Motor function is intact. No weakness. Coordination: Coordination is intact. Deep Tendon Reflexes: Babinski sign absent on the right side. Babinski sign absent on the left side. Reflex Scores: Patellar reflexes are 1+ on the right side and 1+ on the left side. Achilles reflexes are 1+ on the right side and 1+ on the left side. Comments: No ankle clonus Pinprick sensation is intact in all areas of bilateral lower extremities Strength is 5/5 right lower extremity dorsiflexion, plantarflexion, knee extension and flexion, hipflexion Strength is 5/5 left lower extremity dorsiflexion, plantarflexion, knee extension and flexion, hip flexion Patient evaluated during dialysis. Gait unable to be assessed Psychiatric: Mood and Affect: Mood normal. Behavior: Behavior normal. His belly is rotund He has no pedal edema He has no evidence of perineal numbness or tingling to light touch Data Review: MRI of the lumbar spine demonstrates osteomyelitis and discitis within the L5-S1 disc, annular disruption at 4 5 inferiorly space as well suspected epidural abscess posterior to the L5 level with mass-effect on the thecal sac. Diagnosis: 1. Lumbar epidural abscess, posterior annular tear spondylolisthesis L5-S1 chronic chronic low backpain with acute exacerbation likely source of infection would be repetitive cannulations for hemodialysis he he certainly has no evidence of cauda equina syndrome he is able to empty his bladder despite him being on dialysis 2. Lumbar discitis/osteomyelitis 3. Sepsis 4. ESRD 5. History of liver transplant Treatment Recommendations: 1. Aggressive antibiotic therapy To be continued by infectious disease 2. Currently normal exam high surgical risk case given liver disease renal disease etc. he has no overt signs of weakness or progressive neurologic exam with 2 weeks history 3. Needs echocardiogram UA thorough microbiology work-up 4. MRI with and without contrast of lumbar spine will review that pending the results of the scans we can contemplate the need for surgery This note was scribed for me by Sussy Martini PA-C, and has been edited personally I saw thepatient personally examined him I discussed with him the risk of deterioration need for emergency surgeries as well as the risk associated with surgical intervention Electronically signed by Yinka Garnica MD, 04/28/20, 9:02 PM EDT. * Glenn Kay MD - 04/28/2020 4:42 PM EDT Patient Care Team: Edgar Fournier MD as PCP - General (Family Medicine) Chief complaint: ESRD on Home hemodialysis History of Present Illness Patient is a 45 y.o. Yr old male with history of liver transplant on immunosuppressive therapy and dialysis at home had frequent ER visits over the past 2-3 weeks with increasing lower back pain fevers chills. Given Keflex with decrease in fevers but now with worsening back pain fevers leukocytosisseen in [facility] emergency room with diagnosis of epidural abscess. Nephrology is consulted for management of ESRD. He has been on HD since Sep. He is on Home hemo couldn't provide me much info due toAMS. He did his outpatient costume director is Dr Cheney. Unable to tell exactly why he couldn't do dialysis for last few days. Review of Systems Constitutional: Negative for activity change, chills, fatigue and fever. HENT: Negative. Eyes: Negative. Respiratory: Negative. Cardiovascular: Negative. Gastrointestinal: Negative. Genitourinary: Negative. Musculoskeletal: Positive for back pain. Skin: Negative. Neurological: Negative. Past Medical History: Diagnosis Date ??? Diabetes mellitus (CMS/HCC) ??? Dialysis patient (CMS/HCC) ??? Hemorrhage THROAT VARICIES ??? Liver transplanted (CMS/HCC) , Past Surgical History: Procedure Laterality Date ??? CHOLECYSTECTOMY , History reviewed. No pertinent family history., Social History Tobacco Use ??? Smoking status: Never Smoker ??? Smokeless tobacco: Never Used Substance Use Topics ??? Alcohol use: Never Frequency: Never ??? Drug use: Never E-cigarette/Vaping E-cigarette/Vaping Substances E-cigarette/Vaping Devices , (Not in a hospital admission) and Scheduled Meds: aspirin, 81 mg, Oral, Daily carBAMazepine, 200 mg, Oral, Nightly cycloSPORINE modified, 50 mg, Oral, BID docusate sodium, 100 mg, Oral, BID famotidine, 20 mg, Oral, BID AC gabapentin, 100 mg, Oral, Nightly hydrALAZINE, 100 mg, Oral, TID insulin lispro, 0-9 Units, Subcutaneous, TID AC metoprolol tartrate, 100 mg, Oral, Q12H mycophenolate, 250 mg, Oral, BID NIFEdipine CC, 90 mg, Oral, BID NON FORMULARY, 0.5 mg, Oral, Daily piperacillin-tazobactam, 2.25 g, Intravenous, Q8H sodium chloride, 10 mL, Intravenous, Q12H Objective Vital Signs Temp: [97.8 ??F (36.6 ??C)-98.5 ??F (36.9 ??C)] 98.5 ??F (36.9 ??C) Heart Rate: [94-110] 96 Resp: [18-20] 18 BP: (107-159)/(64-117) 137/75 I/O this shift: In: 600 [IV Piggyback:600] Out: - No intake/output data recorded. Physical Exam Constitutional: General: He is not in acute distress. Appearance: Normal appearance. He is not ill-appearing. HENT: Head: Normocephalic and atraumatic. Nose: Nose normal. Eyes: Extraocular Movements: Extraocular movements intact. Pupils: Pupils are equal, round, and reactive to light. Cardiovascular: Rate and Rhythm: Normal rate and regular rhythm. Pulses: Normal pulses. Heart sounds: No murmur. Pulmonary: Effort: Pulmonary effort is normal. No respiratory distress. Breath sounds: No wheezing or rales. Abdominal: General: Abdomen is flat. Bowel sounds are normal. Musculoskeletal: Normal range of motion. General: No swelling. Right lower leg: No edema. Left lower leg: No edema. Skin: General: Skin is warm and dry. Neurological: Comments: confused Psychiatric: Mood and Affect: Mood normal. Behavior: Behavior normal. Results Review: I reviewed the patient's new clinical results. WBC WBC Date Value Ref Range Status 04/28/2020 15.73 (H) 3.40 - 10.80 10*3/mm3 Final HGB Hemoglobin Date Value Ref Range Status 04/28/2020 9.3 (L) 13.0 - 17.7 g/dL Final HCT Hematocrit Date Value Ref Range Status 04/28/2020 27.2 (L) 37.5 - 51.0 % Final Platlets No results found for: LABPLAT MCV MCV Date Value Ref Range Status 04/28/2020 93.5 79.0 - 97.0 fL Final Sodium Sodium Date Value Ref Range Status 04/28/2020 129 (L) 136 - 145 mmol/L Final Potassium Potassium Date Value Ref Range Status 04/28/2020 4.3 3.5 - 5.2 mmol/L Final Chloride Chloride Date Value Ref Range Status 04/28/2020 80 (L) 98 - 107 mmol/L Final CO2 CO2 Date Value Ref Range Status 04/28/2020 19.0 (L) 22.0 - 29.0 mmol/L Final BUN BUN Date Value Ref Range Status 04/28/2020 109 (H) 6 - 20 mg/dL Final Creatinine Creatinine Date Value Ref Range Status 04/28/2020 14.39 (H) 0.76 - 1.27 mg/dL Final Calcium Calcium Date Value Ref Range Status 04/28/2020 9.3 8.6 - 10.5 mg/dL Final PO4 No results found for: CAPO4 Albumin Albumin Date Value Ref Range Status 04/28/2020 3.60 3.50 - 5.20 g/dL Final Magnesium Magnesium Date Value Ref Range Status 04/28/2020 2.4 1.6 - 2.6 mg/dL Final Uric Acid No results found for: URICACID Assessment/Plan Sepsis ([facility]) KIM (nonalcoholic steatohepatitis) History of liver transplant ([facility]) Immunosuppression ([facility]) Type 2 diabetes mellitus ([facility]/HCC) Altered mental state ESRD (end stage renal disease) ([facility]) Hyponatremia Discitis Epidural abscess Leukocytosis Assessment: (ESRD: on home hemo 5x week. Missed HD for few days Anemia: MIENRVA on HD days Met acidosis: management with HD AMS: Combination of uremic encephalopathy, infection and medication related. Volume status: overload. Optimization with HD Epidural abscess: Diagnosed on this admission. On abx Hyponatremia Hx of liver txp: On cyclosporin - Continue HD per TTS анна during the hospital stay. May need extra treatment depending upon the labs. - Abx per primary service - Check cycloscoprine levels in AM ( prior to AM dose)). I discussed the patients findings and my recommendations with patient and nursing staff Glenn Kay MD 04/28/20 16:42 EDT * Cayetano Rodriguez MD - 04/28/2020 3:03 PM EDTAssociated Order(s): IP CONSULT TO INFECTIOUS DISEASES Leoncio Rollins 1975 [id number] Date of Consult: 04/28/2020 Date of Admission: 04/28/2020 Requesting Provider: Keara Berg MD Evaluating Physician: Cayetano Rodriguez MD CC: Chief Complaint Patient presents with ??? Back Pain ??? Multiple complaints Reason for Consultation: lumbar spine acute discitis osteomyelitis and epidural abscess History of present illness: Patient is a 45 y.o. Yr old male with history of liver transplant on immunosuppressive therapy and dialysis at home had frequent ER visits over the past 2-3 weeks with increasing lower back pain fevers chills. Given Keflex with decrease in fevers but now with worsening back pain fevers leukocytosisseen in [facility] emergency room with diagnosis of epidural abscess being consulted for antibiotic management. Patient reports she has had increasing back pain over the past 2 weeks he recently had a right chest wall dialysis cath with some erythema and it was removed. He was also treated with oral antibiotics with Keflex with some improvement of his symptoms. Now reports no fecal incontinence still has movement and strength of bilateral lower extremity does report some difficulty with walking over the past several days with some numbness in his feet. Past Medical History: Diagnosis Date ??? Diabetes mellitus (CMS/HCC) ??? Dialysis patient (CMS/HCC) ??? Hemorrhage THROAT VARICIES ??? Liver transplanted (CMS/HCC) Past Surgical History: Procedure Laterality Date ??? CHOLECYSTECTOMY Pediatric History Patient Parents ??? Not on file Other Topics Concern ??? Not on file Social History Narrative ??? Not on file Reports no tobacco alcohol or illicit drug use. family history is not on file. No Known Allergies Medication: Current Facility-Administered Medications Medication Dose Route Frequency Provider Last Rate Last Dose ??? acetaminophen (TYLENOL) tablet 650 mg 650 mg Oral Q4H PRN Keara Berg, DO Or ??? acetaminophen (TYLENOL) 160 MG/5ML solution 650 mg 650 mg Oral Q4H PRN Keara Berg, DO Or ??? acetaminophen (TYLENOL) suppository 650 mg 650 mg Rectal Q4H PRN Keara Berg, DO ??? calcium carbonate (TUMS) chewable tablet 500 mg (200 mg elemental) 1 tablet Oral BID PRN Keara Berg, DO ??? cycloSPORINE modified (NEORAL) capsule 50 mg 50 mg Oral BID Keara Berg, DO ??? dextrose (D50W) 25 g/ 50mL Intravenous Solution 25 g 25 g Intravenous Q15 Min PRN Keara Berg, DO ??? dextrose (GLUTOSE) oral gel 15 g 15 g Oral Q15 Min PRN Keara Berg, DO ??? docusate sodium (COLACE) capsule 100 mg 100 mg Oral BID Keara Berg, DO ??? famotidine (PEPCID) tablet 20 mg 20 mg Oral BID AC Keara Berg, DO ??? gabapentin (NEURONTIN) capsule 100 mg 100 mg Oral Nightly Keara Berg, DO ??? glucagon (human recombinant) (GLUCAGEN DIAGNOSTIC) injection 1 mg 1 mg Subcutaneous Q15 Min PRNRKeara guaman, DO ??? insulin lispro (humaLOG) injection 0-9 Units 0-9 Units Subcutaneous TID AC Keara Berg, DO ??? mycophenolate (CELLCEPT) capsule 500 mg 500 mg Oral Q12H Keara Berg, DO ??? NIFEdipine XL (PROCARDIA XL) 24 hr tablet 90 mg 90 mg Oral BID Keara Berg, DO ??? NON FORMULARY 0.5 mg Oral Daily Keara Berg, DO ??? Pharmacy to dose vancomycin Does not apply Continuous PRN Keara Berg, DO ??? piperacillin-tazobactam (ZOSYN) in iso-osmotic dextrose IVPB 2.25 g (premix) 2.25 g [id number] Keara Berg, DO ??? sodium chloride 0.9 % flush 10 mL 10 mL Intravenous Q12H Keara Berg, DO ??? sodium chloride 0.9 % flush 10 mL 10 mL Intravenous PRN Keara Berg, DO Current Outpatient Medications Medication Sig Dispense Refill ??? ALPRAZolam (XANAX) 1 MG tablet Take 1 mg by mouth Daily. Take before dialysis ??? cephalexin (KEFLEX) 500 MG capsule Take 500 mg by mouth 2 (Two) Times a Day. For 7 days, started on 04-24-20 ??? cyclobenzaprine (FLEXERIL) 10 MG tablet Take 10 mg by mouth 3 (Three) Times a Day As Needed forMuscle Spasms. ??? entecavir (BARACLUDE) 0.5 MG tablet Take 0.5 mg by mouth Daily. For 7 days, started 04-27-20 ??? famotidine (PEPCID) 20 MG tablet Take 20 mg by mouth 2 (Two) Times a Day. ??? gabapentin (NEURONTIN) 800 MG tablet Take 1,200 mg by mouth 3 (Three) Times a Day. ??? hydrOXYzine pamoate (VISTARIL) 25 MG capsule Take 25 mg by mouth Daily. 1 hr prior to dialysis ??? insulin NPH (humuLIN N,novoLIN N) 100 UNIT/ML injection Inject under the skin into the appropriate area as directed 2 (Two) Times a Day Before Meals. 48 units qam and 15 units qhs ??? mycophenolate (CELLCEPT) 500 MG tablet Take 500 mg by mouth 2 (Two) Times a Day. ??? NIFEdipine CC (ADALAT CC) 90 MG 24 hr tablet Take 90 mg by mouth 2 (Two) Times a Day. ??? vitamin D (ERGOCALCIFEROL) 1.25 MG (13882 UT) capsule capsule Take 50,000 Units by mouth 2 (Two) Times a Week. Takes on Monday and Antibiotics: Vancomycin and Zosyn Review of Systems Full 12 point review of systems reviewed and negative except for fevers lower back pain confusion Physical Exam: Vital Signs BP 138/90 Pulse 98 Temp 98.5 ??F (36.9 ??C) (Oral) Resp 20 Ht 170.2 cm (67 ) Wt 125 kg (275 lb) SpO2 90% BMI 43.07 kg/m?? Temp (24hrs), Av.2 ??F (36.8 ??C), Min:97.8 ??F (36.6 ??C), Max:98.5 ??F (36.9 ??C) GENERAL: confused but able to give history on dialysis today. HEENT: Normocephalic, atraumatic. PERRL. EOMI. No conjunctival injection. No icterus. Oropharynx clear without evidence of thrush or exudate. No evidence of peridontal disease. NECK: Supple without nuchal rigidity LYMPH: No cervical, axillary or inguinal lymphadenopathy. No neck masses HEART: RRR; No murmur, rubs, gallops. LUNGS: Clear to auscultation bilaterally without wheezing, rales, rhonchi. Normal respiratory effort. ABDOMEN: Soft, obese and distended positive bowel sounds. No rebound or guarding. EXT: No cyanosis, clubbing or edema : Normal appearing genitalia without Anders catheter. MSK: FROM without joint effusions noted SKIN: Warm and dry without cutaneous eruptions. NEURO: Oriented to PPT. No focal deficits. Mild decreased sensation in feet but good strength 5 outof 5 of upper and lower extremities PSYCHIATRIC: Impaired insight and judgement. Cooperative with PE Laboratory Data Results from last 7 days Lab Units 04/28/20 0016 WBC 10*3/mm3 15.73* HEMOGLOBIN g/dL 9.3* HEMATOCRIT % 27.2* PLATELETS 10*3/mm3 310 Results from last 7 days Lab Units 04/28/20 0016 SODIUM mmol/L 129* POTASSIUM mmol/L 4.3 CHLORIDE mmol/L 80* CO2 mmol/L 19.0* BUN mg/dL 109* CREATININE mg/dL 14.39* GLUCOSE mg/dL 285* CALCIUM mg/dL 9.3 Results from last 7 days Lab Units 04/28/20 0016 ALK PHOS U/L 105 BILIRUBIN mg/dL 0.3 ALT (SGPT) U/L 48* AST (SGOT) U/L 24 Estimated Creatinine Clearance: 8.1 mL/min (A) (by C-G formula based on SCr of 14.39 mg/dL (H)). Microbiology: Blood cultures pending Radiology: Imaging Results (Last 24 Hours) Procedure Component Value Units Date/Time MRI Lumbar Spine Without Contrast [[id number]] Collected: 04/28/20 1058 Updated: 04/28/20 1242 Narrative: EXAMINATION: MRI LUMBAR SPINE WO CONTRAST-04/28/2020: INDICATION: Lower back pain, evaluate for epidural abscess. Positive changes on CT scan; M54.41-Lumbago with sciatica, right side; M46.46-Discitis, unspecified, lumbar region; N17.9-Acute kidney failure, unspecified; Z99.2-Dependence on renal dialysis; D72.825-Bandemia, low back pain. TECHNIQUE: Routine multiplanar imaging was obtained of the lumbar spine without the administration of Gadolinium contrast. COMPARISON: CT scan of the lumbar spine dated 04/28/2020. FINDINGS: There is abnormality identified within the L5/S1 level with fluid identified in the disc space and abnormal fluid and signal intensity seen posterior to the L5 level. Bilateral pars defects identified of the L5/S1 level with mild anterolisthesis identified of L5 on S1. There is mass effect on the anterior aspect of the thecal sac. Findings highly concerning for an epidural abscess. There is narrowing identified of the spinal canal. The abnormal fluid collection measures approximately 4.3 x 1.4 x 1.1 cm in its largest dimension. There is signal changes identified within the inferior endplate of L5 and superior endplate of S1 suggesting osteomyelitis. There are degenerative changes identified of the L4/L5 level. No abnormal mass or fluid collection seen within the paraspinal muscles. The remainder of the disc spaces are preserved. Normal signal intensity within the conus. Impression: There are degenerative changes seen of the L4/L5 and L5/S1 levels with osteomyelitis and discitis seen of L5 and S1 with fluid collection identified in the epidural space concerning for an epidural abscess. Clinical correlation is needed. There is mass effect on the thecal sac with narrowing and mass effect on the nerve roots bilaterally. E: 04/28/2020 CT Abdomen Pelvis Without Contrast [[id number]] Collected: 04/28/20640 Updated: 04/28/20643 Narrative: INDICATION: Post liver transplant with generalized abdominal fullness abdominal pain and low back pain with shortness of breath. TECHNIQUE: CT of the abdomen and pelvis without contrast. Coronal and sagittal reconstructions were obtained. Radiation dose reduction techniques included automated exposure control or exposure modulation basedon body size. Radiation audit for number of CT and nuclear cardiology exams performed in the last year: 0. COMPARISON: None available. FINDINGS: Lung bases: See separate CT chest today Abdomen: Study is limited by lack of IV contrast media. Stomach is very distended with fluid. Please correlate for clinical evidence of gastroparesis or gastric outlet obstruction. There are multiple right upper quadrant surgical clips consistent with liver transplantation. Noncontrast study does not accurately evaluate liver parenchyma. The patient's post cholecystectomy. Unenhanced pancreas is unremarkable. There are probably some left upper quadrant varices. The adrenal glands are unremarkable. There are are no intrarenal calculi. There is bilateral renal parenchymal thinning. There is no hydronephrosis. There is mild perinephric stranding. There is no evidence for abdominal aortic aneurysm. The appendix is radiographically unremarkable. There is no evidence for small bowel obstruction. There is a fat-containing midline anterior abdominal wall hernia with a broad neck that measures about 6.8 cm diameter. The hernia sac is about 11 x 9 cm mL and SI dimension and 4 cm AP dimension. There is colonic gas and stool prominence of the colon but no obstruction point. Pelvis: The bladder is partly decompressed and unremarkable. There is a small fat-containing right inguinal hernia. There is no free fluid in the pelvis. There is no free intraperitoneal air. Impression: 1. Findings consistent with previous liver transplant. 2. Marked distention of the stomach with fluid. Correlate for clinical evidence of gastroparesis versus gastric outlet obstruction. 3. There is a fat-containing anterior abdominal wall incisional hernia sac without bowel obstruction. 4. The appendix is radiographically unremarkable. 5. There our probably some left upper quadrant varices. Study is limited by lack of IV contrast media. Signer Name: Heather Fried MD Signed: 04/28/2020 6:41 AM Workstation Name: [email or web address] CT Chest Without Contrast [[id number]] Collected: 04/28/20633 Updated: 04/28/2036 Narrative: INDICATION: Liver transplant with generalized abdominal pain low back pain and shortness of breath. ER evaluation TECHNIQUE: CT of the chest without contrast. Coronal and sagittal reconstructions were obtained. Radiation dose reduction techniques included automated exposure control or exposure modulation based on body size. Radiation audit for number of CT and nuclear cardiology exams performed in the last year: 0. COMPARISON: Earlier chest x-ray today FINDINGS: Study is limited by lack of IV contrast media. There is no axillary lymphadenopathy. The esophagus is patulous with wall thickening diffusely and fluid-filled/air-fluid level. Visualized stomach is very distended with fluid. See the abdomen dictation. There is evidence for old granulomatous disease. There is no lymphadenopathy in the mediastinum or debbi by measurement criteria on this noncontrast exam. Heart size is top normal. There is no definite pleural effusion. There is apparently left pleural thickening and areas of parenchymal scarring. There is distortion of parenchymal architecture in the left upper lobe and left upper hilum which is probably chronic. Comparison to any interval outsidechest CT is recommended to confirm stability. There is no pneumothorax. There is no acute infiltrate. There is no congestive failure. Impression: 1. The esophagus is patulous with circumferential wall thickening. Its distended with fluid and air-fluid level. The stomach is distended. See the separate abdomen pelvis dictation. 2. Apparent left pleural thickening and parenchymal scarring with distortion of the left superior hilum. A believe these findings are chronic but recommend comparison to outside chest CT to confirm long-term stability. Please correlate with any history. Study is limited by lack of IV contrast media. 3. Otherwise no active disease is seen in the chest. Signer Name: Heather Fried MD Signed: 04/28/2020 6:34 AM Workstation Name: [facility] CT Lumbar Spine Without Contrast [[id number]] Collected: 04/28/20627 Updated: 04/28/20629 Narrative: INDICATION: Pain and short of breath. Liver transplant patient TECHNIQUE: CT of the lumbar spine without contrast. Coronal and sagittal reconstructions were obtained. Radiation dose reduction techniques included automated exposure control or exposure modulation based on body size. Radiation audit for number of CT and nuclear cardiology exams performed in the last year: 0. COMPARISON: None FINDINGS: There is 3 to 4 mm of grade 1 anterolisthesis of L5 on S1 secondary to chronic L5 pars defects. There is loss of disc height, vacuum disc formation, endplate spondylosis at the inferior endplate of L5. There is irregularity of the inferior endplate of L5 some of which is sclerotic and some of which is nonsclerotic. This could be due to Schmorl's node formation/degenerative disc disease but discitis is not excluded. There are tiny air densities withinthe canal posterior to L4-5 and L5- S1. Scan be seen in the setting of vacuum disc extrusion but the amount seen is more diffuse than typical. An alternateconsideration in an immunocompromised patient with back pain is epidural abscess/discitis and osteomyelitis. Recommend correlation with an MRI lumbar spine with and without contrast if the patient is candidate. Otherwise there is no acute fracture or bone destruction. At T11-12 is facet degenerative change with mild to mass effect on the thecal sac. At T12-L1, no bony canal or foraminal compromise. At L1-2, no canal or foraminal compromise. At L2-3, no canal or foraminal compromise. At L3-4, no canal or foraminal compromise. At L4-5, there is a posterior disc bulge and mild facet degenerative change. Air bubbles are seen in the canal. There is at least some effacement of the thecal sac by the disc bulge. There is likely mild foraminal narrowing. L5-S1 as discussed above. There is no bony canal stenosis. Pars defects accounting for the anterolisthesis. There is bilateral bony foraminal narrowing. Impression: 1. Grade 1 anterolisthesis of L5 on S1 secondary to chronic L5 pars defects. 2. There are air densities within the canal for 5 L5-S1 level. This can be seen in the setting of extruded vacuum disc formation but possibility of an epidural abscess is in the differential and should be excluded with MRI lumbar spine with and without contrast. Additionally there is endplate irregularity at the inferior endplate of L5 could be due to severe degenerative disc disease but alternate diagnosis includes discitis. Signer Name: Heather Fried MD Signed: 04/28/2020 6:28 AM Workstation Name: [email or web address] XR Chest 1 View [[id number]] Collected: 04/28/20 0158 Updated: 04/28/20199 Narrative: CR Chest 1 Vw INDICATION: Weakness and dizziness on arrival COMPARISON: None available. FINDINGS: Single portable AP view(s) of the chest. The heart and mediastinal contours are normal. The lungs are clear. No pneumothorax or pleural effusion. Impression: No acute cardiopulmonary findings. Signer Name: Gabino Herr MD Signed: 04/28/2020 1:58 AM Workstation Name: [email or web address] PROBLEM LIST: Sepsis Lumbar spine discitis osteomyelitis with epidural abscess component Liver transplant on immunosuppression Fevers with chills Leukocytosis Increasing lower back pain Type 2 diabetes mellitus Hyponatremia End-stage renal disease on hemodialysis Kim ASSESSMENT: Patient is a 45-year-old with Kim with end-stage liver disease underwent transplant on immunosuppressive therapy on home hemodialysis 5 days/week with end-stage renal disease recent right chest walldialysis cath removed with some erythema this was followed by increasing lower back pain which progressed to fevers chills difficulty with ambulation. He was seen at several ERs including [facility] given Keflex with some improvement. Now admitted with fevers chills leukocytosis MRI revealing lumbar spine discitis osteomyelitis and fluid seen on MRI and epidural space of L5-S1 but no overt neurologic deficits today. Get old records from [facility] see if they did any blood cultures follow-up on the days blood cultures okay with vancomycin and Zosyn empirically agree with neurosurgical consultation PLAN: Continue vancomycin Zosyn Follow-up cultures Get records from outside ER visits If any worsening neurologic deficits may need emergent incision and drainage Discussed complex case with patient and with hospitalist late this afternoon continue aggressive antibiotic management. Cayetano Rodriguez MD 04/28/2020 documented in this encounter Nursing Notes * Aydin Keller RN - 05/13/2020 5:34 AM EDT Goal Outcome Evaluation: Plan of Care Reviewed With: patient Progress: improving Outcome Summary: scheduled for dialysis this AM. AM meds sent with pt. slept <2hrs this shift. will continue to monitor. Pt is AAO to self and time. NOT oriented to situation or place. Conversation are flighty and all over the place. Conversations are cogent but wander from subject to subject * Karli Carroll RN - 05/12/2020 6:31 PM EDT Goal Outcome Evaluation: Plan of Care Reviewed With: patient Progress: no change Patient alert with continued confusion. He is A&O X4 but appears to be delusional?? Refused to stand/cooperate with therapy. He continues to ask for a ride home and alternately accuses me of siding with them doctors . was at bedside briefly today and questioned when his confusion would clear up. His mother via phone states that he is normally baseline confused. His last bowel movement was charted as several days past but he refuses a suppository and miralax. * Momo Aragon PT - 05/12/2020 1:10 PM EDT Problem: Adult Inpatient Plan of Care Goal: Plan of Care Review Recent Flowsheet Documentation Taken 05/12/2020 1611 by Momo Aragon PT Progress: no change Plan of Care Reviewed With: patient Outcome Summary: Patient continues to be limited in all mobility by anxiety and c/o back pain. He is difficult to motivate and to stay on task. He is unrealistic about his goals stating, I'm going to walk home tomorrow. * Aydin Keller RN - 05/12/2020 5:47 AM EDT Goal Outcome Evaluation: Plan of Care Reviewed With: patient Progress: improving Outcome Summary: received report from previous shift. pt AAO, VSS and in no apparent distress or discomfort. pt with multiple requests and very needy of staff attention. calling to family members through night, . remains pleasant but monopolizes time often confuses stories together. pt slept/rested<2 hours this shift. will continue to monitor * Blake Simpson RN - 05/11/2020 1:56 PM EDT HD in progress. * Khushi Blood RN - 05/11/2020 12:20 PM EDT Hd in progress * Aydin Keller RN - 05/11/2020 8:26 AM EDT Goal Outcome Evaluation: Plan of Care Reviewed With: patient Progress: improving Outcome Summary: rec'd report from previous shift. pt AAO, VSS and in no apparent distress. pt resting in bed watching TV. multiple requests for assistance, for medications, questions, etc. pt requested pain medications twice during this shift. 1st request was for pain in foot and back. PO acetaminophen given with good results. At about 0530 pt requested medication for pain rated as 8/10 because back was sore from the bed. i withdrew dilaudid 0.25mg IV but when got to patient realized didnt have IV access. i offered to start an IV to administer medication and patient refused. i then offered to give acetaminophen again as it had worked some earlier and again pt refused. pt stated they would w ait until morning medications. will continue to monitor * Christa Mckenzie RN - 05/10/2020 3:30 AM EDT Goal Outcome Evaluation: Plan of Care Reviewed With: patient Progress: no change Pt A&Ox3 with intermittentt confusion/illogical responses noted. Lumbar dressing clean and dry.Elevated bp beginning of shift. Bp meds given with improvement. Tele nsr/st. Vs noted. * Shannan Evans RN - 05/09/2020 12:05 AM EDT A&Ox3 with intermittent confusion/forgetfulness. PT has been c/o testicular pain, states, It'sbecause of antibiotic . No swelling/redness noted to scrotum. SBP slightly elevated. S tach on cardiac mx. Anuric due to dialysis. Will cont to mx. Call light inreach. * Eneida Oro PT - 05/08/2020 9:11 AM EDT Problem: Adult Inpatient Plan of Care Goal: Plan of Care Review Recent Flowsheet Documentation Taken 05/08/2020 09 by Eneida Oro PT Progress: no change Plan of Care Reviewed With: patient Outcome Summary: Pt participation in PT continues to be limited by pain. This session pt performed bed to chair transfer with mod A x 2 with RW which triggered a jimbo horse which halted participation in therapy despite extensive education. * Sujata Boogie RN - 05/08/2020 4:41 AM EDT Patient remains alert and oriented, but forgetful at times. Remains tachycardic, other VSS. PRN dilaudid given for severe pain rating. Patient did not sleep well again tonight. CM following. * Elieser Hawkins, PT - 05/07/2020 9:25 AM EDT Problem: Adult Inpatient Plan of Care Goal: Plan of Care Review Flowsheets (Taken 05/07/2020 0925) Progress: improving Plan of Care Reviewed With: patient Outcome Summary: Pt refusing OOB mobility due to 10 pain and fatigue, despite max education and encouragement. RN notified. Pt agreeable to exercise. Reviewed spinal precautions and logroll technique. Will continue to progress strength and mobility as able. * Sujata Boogie RN - 05/07/2020 6:52 AM EDT Patient alert and oriented this shift, but forgetfull at times. BP and HR increased during shift. key account director GEOGRAPHY INSTRUCTOR notified and new orders given. Other VSS. No c/o pain. Continues to have tarry stools. Back dressing changed. Patient did not sleep much at all during shift. * Elieser Hawkins, PT - 05/06/2020 3:10 PM EDT Problem: Adult Inpatient Plan of Care Goal: Plan of Care Review Flowsheets (Taken 05/06/2020 1510) Progress: improving Plan of Care Reviewed With: patient Outcome Summary: Pt continues to be limited by pain when attempting mobility tasks. Pt ambulated 2 feet using RW and mod Ax2 for AD management and balance. Pt impulsive with gait, requiring max cueing for sequencing. Bed mobility requiring mod-max Ax2 and STS with mod Ax2. Reviewed HEP, logroll technique, and spinal precautions. Will continue to progress strength and mobility as able. * Jocelyn Cha RN - 05/06/2020 8:30 AM EDT Problem: Device-Related Complication Risk (Hemodialysis) Goal: Safe, Effective Therapy Delivery Outcome: Ongoing, Progressing Problem: Hemodynamic Instability (Hemodialysis) Goal: Vital Signs Remain in Desired Range Outcome: Ongoing, Progressing Problem: Infection (Hemodialysis) Goal: Absence of Infection Signs and Symptoms Outcome: Ongoing, Progressing HD in progress * Ronald Aguilar RN - 05/06/2020 5:38 AM EDT Problem: Device-Related Complication Risk (Hemodialysis) Goal: Safe, Effective Therapy Delivery Outcome: Ongoing, Progressing Intervention: Optimize Device Care and Function Recent Flowsheet Documentation Taken 05/06/2020 0400 by Ronald Aguilar RN Medication Review/Management: medications reviewed Taken 05/06/2020 0200 by Ronald Aguilar RN Medication Review/Management: medications reviewed Taken 05/06/2020 0000 by Ronald Aguilar RN Medication Review/Management: medications reviewed Taken 05/05/2020 220 by Ronald Aguilar RN Medication Review/Management: medications reviewed Taken 05/05/20201999 by Ronald Aguilar RN Medication Review/Management: medications reviewed Problem: Hemodynamic Instability (Hemodialysis) Goal: Vital Signs Remain in Desired Range Outcome: Ongoing, Progressing Intervention: Optimize Blood Flow Recent Flowsheet Documentation Taken 05/05/20201999 by Ronald Aguilar RN Fluid/Electrolyte Management: fluids provided Bleeding Precautions: blood pressure closely monitored Bleeding Management: dressing monitored Problem: Infection (Hemodialysis) Goal: Absence of Infection Signs and Symptoms Outcome: Ongoing, Progressing Intervention: Prevent or Manage Infection Recent Flowsheet Documentation Taken 05/06/2020 0400 by Ronald Aguilar RN Infection Prevention: cohorting utilized Taken 05/06/2020 0200 by Ronald Aguilar RN Infection Prevention: cohorting utilized Taken 05/06/2020 0000 by Ronald Aguilar RN Infection Prevention: cohorting utilized Taken 05/05/20202199 by Ronald Aguilar RN Infection Prevention: cohorting utilized Taken 05/05/20201999 by Ronald Aguilar RN Infection Prevention: cohorting utilized Problem: Pain Acute Goal: Optimal Pain Control Outcome: Ongoing, Progressing Intervention: Develop Pain Management Plan Recent Flowsheet Documentation Taken 05/05/20202199 by Ronald Aguilar RN Pain Management Interventions: see MAR Intervention: Prevent or Manage Pain Recent Flowsheet Documentation Taken 05/05/20201999 by Ronald Aguilar RN Sensory Stimulation Regulation: auditory stimulation minimized Sleep/Rest Enhancement: awakenings minimized Intervention: Optimize Psychosocial Wellbeing Recent Flowsheet Documentation Taken 05/05/20201999 by Ronald Aguilar RN Supportive Measures: active listening utilized Diversional Activities: television Problem: Adult Inpatient Plan of Care Goal: Plan of Care Review Outcome: Ongoing, Progressing Flowsheets (Taken 05/05/2020 185 by Albertina Marie RN) Plan of Care Reviewed With: patient Goal: Patient-Specific Goal (Individualized) Outcome: Ongoing, Progressing Goal: Absence of Hospital-Acquired Illness or Injury Outcome: Ongoing, Progressing Intervention: Identify and Manage Fall Risk Recent Flowsheet Documentation Taken 05/06/2020 0400 by Ronald Aguilar RN Safety Promotion/Fall Prevention: activity supervised Taken 05/06/2020 0200 by Ronald Aguilar RN Safety Promotion/Fall Prevention: activity supervised Taken 05/06/2020 0000 by Ronald Aguilar RN Safety Promotion/Fall Prevention: activity supervised Taken 05/05/20202199 by Ronald Aguilar RN Safety Promotion/Fall Prevention: activity supervised Taken 05/05/20201999 by Ronald Aguilar RN Safety Promotion/Fall Prevention: activity supervised Intervention: Prevent Skin Injury Recent Flowsheet Documentation Taken 05/06/2020 0400 by Ronald Aguilar RN Body Position: supine Taken 05/06/2020 0200 by Ronald Aguilar RN Body Position: supine Taken 05/06/2020 0000 by Ronald Aguilar RN Body Position: supine Taken 05/05/2020 2200 by Ronald Aguilar RN Body Position: supine Taken 05/05/20201999 by Ronald Aguilar RN Body Position: supine Intervention: Prevent and Manage VTE (venous thromboembolism) Risk Recent Flowsheet Documentation Taken 05/06/2020 0400 by Ronald Aguilar RN VTE Prevention/Management: sequential compression devices off Taken 05/06/2020 0200 by Ronald Aguilar RN VTE Prevention/Management: sequential compression devices off Taken 05/06/2020 0000 by oRnald Aguilar RN VTE Prevention/Management: sequential compression devices off Taken 05/05/20202199 by Ronald Aguilar RN VTE Prevention/Management: sequential compression devices off Taken 05/05/20201999 by Ronald Aguilar RN VTE Prevention/Management: sequential compression devices off Intervention: Prevent Infection Recent Flowsheet Documentation Taken 05/06/2020 0400 by Ronald Aguilar RN Infection Prevention: cohorting utilized Taken 05/06/2020 0200 by Ronald Aguilar RN Infection Prevention: cohorting utilized Taken 05/06/2020 by Ronald Aguilar RN Infection Prevention: cohorting utilized Taken 05/05/20202199 by Ronald Aguilar RN Infection Prevention: cohorting utilized Taken 05/05/20201999 by Ronald Aguilar RN Infection Prevention: cohorting utilized Goal: Optimal Comfort and Wellbeing Outcome: Ongoing, Progressing Intervention: Provide Person-Centered Care Recent Flowsheet Documentation Taken 05/05/20201999 by Ronald Aguilar RN Trust Relationship/Rapport: care explained choices provided reassurance provided Goal: Readiness for Transition of Care Outcome: Ongoing, Progressing Problem: Fall Injury Risk Goal: Absence of Fall and Fall-Related Injury Outcome: Ongoing, Progressing Intervention: Identify and Manage Contributors to Fall Injury Risk Recent Flowsheet Documentation Taken 05/06/2020 0400 by Ronald Aguilar RN Medication Review/Management: medications reviewed Taken 05/06/2020 020 by Ronald Aguilar RN Medication Review/Management: medications reviewed Taken 05/06/2020 by Ronald Aguilar RN Medication Review/Management: medications reviewed Taken 05/05/20202199 by Ronald Aguilar RN Medication Review/Management: medications reviewed Taken 05/05/20201999 by Ronald Aguilar RN Medication Review/Management: medications reviewed Intervention: Promote Injury-Free Environment Recent Flowsheet Documentation Taken 05/06/2020 040 by Ronald Aguilar RN Safety Promotion/Fall Prevention: activity supervised Taken 05/06/2020 0200 by Ronald Aguilar RN Safety Promotion/Fall Prevention: activity supervised Taken 05/06/2020 0000 by Ronald Aguilar RN Safety Promotion/Fall Prevention: activity supervised Taken 05/05/20202199 by Ronald Aguilar RN Safety Promotion/Fall Prevention: activity supervised Taken 05/05/20201999 by Ronald Aguilar RN Safety Promotion/Fall Prevention: activity supervised Problem: Bleeding (Spinal Surgery) Goal: Absence of Bleeding Outcome: Ongoing, Progressing Intervention: Monitor and Manage Bleeding Recent Flowsheet Documentation Taken 05/05/20201999 by Ronald Aguilar RN Bleeding Management: dressing monitored Problem: Bowel Elimination Impaired (Spinal Surgery) Goal: Effective Bowel Elimination Outcome: Ongoing, Progressing Intervention: Promote Effective Bowel Elimination Recent Flowsheet Documentation Taken 05/05/20201999 by Ronald Aguilar RN Bowel Elimination Management: toileting offered Bowel Elimination Promotion: adequate fluid intake promoted Problem: Functional Ability Impaired (Spinal Surgery) Goal: Optimal Functional Ability Outcome: Ongoing, Progressing Intervention: Optimize Functional Status Recent Flowsheet Documentation Taken 05/06/2020 0400 by Ronald Aguilar RN Positioning/Transfer Devices: pillows in use Taken 05/06/2020 0200 by Ronald Aguilar RN Positioning/Transfer Devices: pillows in use Taken 05/06/2020 0000 by Ronald Aguilar RN Positioning/Transfer Devices: pillows in use Taken 05/05/2020 220 by Ronald Aguilar RN Positioning/Transfer Devices: pillows in use Taken 05/05/20201999 by Ronald Aguilar RN Positioning/Transfer Devices: pillows in use Problem: Infection (Spinal Surgery) Goal: Absence of Infection Signs and Symptoms Outcome: Ongoing, Progressing Problem: Neurologic Impairment (Spinal Surgery) Goal: Optimal Neurologic Function Outcome: Ongoing, Progressing Intervention: Optimize Neurologic Function Recent Flowsheet Documentation Taken 05/06/2020 0400 by Ronald Aguilar RN Body Position: supine Pressure Reduction Devices: pressure-redistributing mattress utilized Taken 05/06/2020 0200 by Ronald Aguilar RN Body Position: supine Pressure Reduction Devices: pressure-redistributing mattress utilized Taken 05/06/2020 0000 by Ronald Aguilar RN Body Position: supine Pressure Reduction Devices: pressure-redistributing mattress utilized Taken 05/05/2020 2200 by Ronald Aguilar RN Body Position: supine Pressure Reduction Devices: pressure-redistributing mattress utilized Taken 05/05/20201999 by Ronald Aguilar RN Body Position: supine Pressure Reduction Devices: pressure-redistributing mattress utilized Problem: Ongoing Anesthesia Effects (Spinal Surgery) Goal: Anesthesia/Sedation Recovery Outcome: Ongoing, Progressing Intervention: Optimize Anesthesia Recovery Recent Flowsheet Documentation Taken 05/06/2020 0400 by Ronald Aguilar RN Safety Promotion/Fall Prevention: activity supervised Taken 05/06/2020 0200 by Ronald Aguilar RN Safety Promotion/Fall Prevention: activity supervised Taken 05/06/2020 0000 by Ronald Aguilar RN Safety Promotion/Fall Prevention: activity supervised Taken 05/05/2020 2200 by Ronald Aguilar RN Safety Promotion/Fall Prevention: activity supervised Taken 05/05/2020 2000 by Ronald Aguilar RN Patient Tolerance (IS): good Safety Promotion/Fall Prevention: activity supervised Reorientation Measures: reorientation provided Problem: Pain (Spinal Surgery) Goal: Acceptable Pain Control Outcome: Ongoing, Progressing Intervention: Prevent or Manage Pain Recent Flowsheet Documentation Taken 05/05/2020 2200 by Ronald Aguilar RN Pain Management Interventions: see MAR Problem: Postoperative Nausea and Vomiting (Spinal Surgery) Goal: Nausea and Vomiting Relief Outcome: Ongoing, Progressing Problem: Postoperative Urinary Retention (Spinal Surgery) Goal: Effective Urinary Elimination Outcome: Ongoing, Progressing Intervention: Monitor and Manage Urinary Retention Recent Flowsheet Documentation Taken 05/05/20201999 by Ronald Aguilar RN Urinary Elimination Promotion: toileting offered Problem: Skin Injury Risk Increased Goal: Skin Health and Integrity Outcome: Ongoing, Progressing Intervention: Optimize Skin Protection Recent Flowsheet Documentation Taken 05/06/2020 0400 by Ronald Aguilar RN Pressure Reduction Techniques: frequent weight shift encouraged Head of Bed ([facility]): [facility] elevated Pressure Reduction Devices: pressure-redistributing mattress utilized Skin Protection: adhesive use limited Taken 05/06/2020 0200 by Ronald Aguilar RN Pressure Reduction Techniques: frequent weight shift encouraged Head of Bed (HOB): [facility] elevated Pressure Reduction Devices: pressure-redistributing mattress utilized Skin Protection: adhesive use limited incontinence pads utilized Taken 05/06/2020 0000 by Ronald Aguilar RN Pressure Reduction Techniques: frequent weight shift encouraged Head of Bed (HOB): [facility] elevated Pressure Reduction Devices: pressure-redistributing mattress utilized Skin Protection: adhesive use limited incontinence pads utilized Taken 05/05/2020 2200 by Ronald Aguilar RN Pressure Reduction Techniques: frequent weight shift encouraged Head of Bed (HOB): [facility] elevated Pressure Reduction Devices: pressure-redistributing mattress utilized Skin Protection: adhesive use limited incontinence pads utilized Taken 05/05/20201999 by Ronald Aguilar RN Pressure Reduction Techniques: frequent weight shift encouraged Head of Bed (HOB): [facility] elevated Pressure Reduction Devices: pressure-redistributing mattress utilized Skin Protection: adhesive use limited Goal Outcome Evaluation: Plan of Care Reviewed With: patient Progress: no change * Albertina Marie RN - 05/05/2020 6:56 PM EDT Problem: Device-Related Complication Risk (Hemodialysis) Goal: Safe, Effective Therapy Delivery Outcome: Ongoing, Progressing Intervention: Optimize Device Care and Function Recent Flowsheet Documentation Taken 05/05/2020 1400 by Albertina Marie RN Medication Review/Management: medications reviewed Taken 05/05/2020 1240 by Albertina Marie RN Medication Review/Management: medications reviewed Taken 05/05/2020 0830 by Albertina Marie RN Medication Review/Management: medications reviewed Problem: Hemodynamic Instability (Hemodialysis) Goal: Vital Signs Remain in Desired Range Outcome: Ongoing, Progressing Problem: Infection (Hemodialysis) Goal: Absence of Infection Signs and Symptoms Outcome: Ongoing, Progressing Intervention: Prevent or Manage Infection Recent Flowsheet Documentation Taken 05/05/2020 1836 by Albertina Marie RN Infection Prevention: environmental surveillance performed Taken 05/05/2020 1600 by Albertina Marie RN Infection Prevention: environmental surveillance performed Taken 05/05/2020 1400 by Albertina Marie RN Infection Prevention: environmental surveillance performed Taken 05/05/2020 1240 by Albertina Marie RN Infection Prevention: environmental surveillance performed Taken 05/05/2020 1030 by Albertina Marie RN Infection Prevention: environmental surveillance performed Taken 05/05/2020 0830 by Albertina Marie RN Infection Prevention: environmental surveillance performed Problem: Pain Acute Goal: Optimal Pain Control Outcome: Ongoing, Progressing Problem: Adult Inpatient Plan of Care Goal: Plan of Care Review Outcome: Ongoing, Progressing Flowsheets (Taken 05/05/2020 1851) Progress: no change Plan of Care Reviewed With: patient Outcome Summary: Patient more confused this shift, A&O to self only. Baclofen discontinued, possibly contributing to increasedc confusion. BP highly elevated over night and this morning, PRN labetolol and scheduled BP meds managing it well, BP stable. Sinus tachycardia when awake and NSR while sleeping on tele, 2L NC. Several black, tarry stools this shift. Plan for hemodialysis tmr. Patient has been very drowsy all shift, in and out of sleep. When awake very odd mannerisms, keeping mouth open, sticking tongue out, and repeating words over and over. Muscle jerking noted, ativan given. Coverderm dressing to back intact w/ dried drainage. Patients spouse is allowed to stay the night, reassess tmr. Continue to monitor. Goal: Patient-Specific Goal (Individualized) Outcome: Ongoing, Progressing Goal: Absence of Hospital-Acquired Illness or Injury Outcome: Ongoing, Progressing Intervention: Identify and Manage Fall Risk Recent Flowsheet Documentation Taken 05/05/2020 1836 by Albertina Marie, RN Safety Promotion/Fall Prevention: activity supervised assistive device/personal items within reach clutter free environment maintained fall prevention program maintained gait belt toileting scheduled safety round/check completed room organization consistent nonskid shoes/slippers when out of bed Taken 05/05/2020 1600 by Albertina Marie, RN Safety Promotion/Fall Prevention: activity supervised assistive device/personal items within reach clutter free environment maintained elopement precautions gait belt toileting scheduled safety round/check completed room organization consistent nonskid shoes/slippers when out of bed Taken 05/05/2020 1400 by Albertina Marie, RN Safety Promotion/Fall Prevention: activity supervised assistive device/personal items within reach clutter free environment maintained fall prevention program maintained gait belt toileting scheduled safety round/check completed room organization consistent nonskid shoes/slippers when out of bed Taken 05/05/2020 1240 by Albertina Marie, RN Safety Promotion/Fall Prevention: activity supervised assistive device/personal items within reach clutter free environment maintained fall prevention program maintained gait belt toileting scheduled safety round/check completed room organization consistent nonskid shoes/slippers when out of bed Taken 05/05/2020 1030 by Albertina Marie, RN Safety Promotion/Fall Prevention: activity supervised assistive device/personal items within reach clutter free environment maintained fall prevention program maintained gait belt toileting scheduled safety round/check completed room organization consistent nonskid shoes/slippers when out of bed Taken 05/05/2020 0830 by Albertina Marie RN Safety Promotion/Fall Prevention: activity supervised assistive device/personal items within reach clutter free environment maintained fall prevention program maintained gait belt toileting scheduled safety round/check completed room organization consistent nonskid shoes/slippers when out of bed Intervention: Prevent Skin Injury Recent Flowsheet Documentation Taken 05/05/2020 1836 by Albertina Marie RN Body Position: supine Taken 05/05/2020 1600 by Albertina Marie RN Body Position: supine Taken 05/05/2020 1400 by Albertina Marie RN Body Position: supine Taken 05/05/2020 1240 by Albertina Marie RN Body Position: supine Taken 05/05/2020 1030 by Albertina Marie RN Body Position: supine Taken 05/05/2020 0830 by Albertina Marie RN Body Position: supine Intervention: Prevent and Manage VTE (venous thromboembolism) Risk Recent Flowsheet Documentation Taken 05/05/2020 1836 by Albertina Marie RN VTE Prevention/Management: bilateral sequential compression devices off Taken 05/05/2020 1600 by Albertina Marie RN VTE Prevention/Management: bilateral sequential compression devices off Taken 05/05/2020 1400 by Albertina Marie RN VTE Prevention/Management: bilateral sequential compression devices off Taken 05/05/2020 1240 by Albertina Marie RN VTE Prevention/Management: bilateral sequential compression devices off Taken 05/05/2020 1030 by Albertina Marie RN VTE Prevention/Management: bilateral sequential compression devices off Taken 05/05/2020 0830 by Albertina Marie RN VTE Prevention/Management: bilateral sequential compression devices off Intervention: Prevent Infection Recent Flowsheet Documentation Taken 05/05/2020 1836 by Albertina Marie RN Infection Prevention: environmental surveillance performed Taken 05/05/2020 1600 by Albertina Marie RN Infection Prevention: environmental surveillance performed Taken 05/05/2020 1400 by Albertina Marie RN Infection Prevention: environmental surveillance performed Taken 05/05/2020 1240 by Albertina Marie RN Infection Prevention: environmental surveillance performed Taken 05/05/2020 1030 by Marie, Albertina M, RN Infection Prevention: environmental surveillance performed Taken 05/05/2020 0830 by Albertina Marie RN Infection Prevention: environmental surveillance performed Goal: Optimal Comfort and Wellbeing Outcome: Ongoing, Progressing Intervention: Provide Person-Centered Care Recent Flowsheet Documentation Taken 05/05/2020 1836 by Albertina Marie RN Trust Relationship/Rapport: care explained Taken 05/05/2020 1600 by Albertina Marie RN Trust Relationship/Rapport: care explained questions encouraged questions answered Taken 05/05/2020 1400 by Albertina Marie RN Trust Relationship/Rapport: care explained Taken 05/05/2020 1240 by Albertina Marie RN Trust Relationship/Rapport: care explained questions encouraged Taken 05/05/2020 1030 by Albertina Marie, RN Trust Relationship/Rapport: care explained Taken 05/05/2020 0830 by Albertina Marie, RN Trust Relationship/Rapport: care explained choices provided questions encouraged Goal: Readiness for Transition of Care Outcome: Ongoing, Progressing Problem: Fall Injury Risk Goal: Absence of Fall and Fall-Related Injury Outcome: Ongoing, Progressing Intervention: Identify and Manage Contributors to Fall Injury Risk Recent Flowsheet Documentation Taken 05/05/2020 1400 by Albertina Marie watch inspector Review/Management: medications reviewed Taken 05/05/2020 1240 by Albertina Marie watch inspector Review/Management: medications reviewed Taken 05/05/2020 0830 by Albertina Marie watch inspector Review/Management: medications reviewed Intervention: Promote Injury-Free Environment Recent Flowsheet Documentation Taken 05/05/2020 1836 by Albertina Marie, RN Safety Promotion/Fall Prevention: activity supervised assistive device/personal items within reach clutter free environment maintained fall prevention program maintained gait belt toileting scheduled safety round/check completed room organization consistent nonskid shoes/slippers when out of bed Taken 05/05/2020 1600 by Albertina Marie, RN Safety Promotion/Fall Prevention: activity supervised assistive device/personal items within reach clutter free environment maintained elopement precautions gait belt toileting scheduled safety round/check completed room organization consistent nonskid shoes/slippers when out of bed Taken 05/05/2020 1400 by Albertina Marie, RN Safety Promotion/Fall Prevention: activity supervised assistive device/personal items within reach clutter free environment maintained fall prevention program maintained gait belt toileting scheduled safety round/check completed room organization consistent nonskid shoes/slippers when out of bed Taken 05/05/2020 1240 by Albertina Marie, JANA Safety Promotion/Fall Prevention: activity supervised assistive device/personal items within reach clutter free environment maintained fall prevention program maintained gait belt toileting scheduled safety round/check completed room organization consistent nonskid shoes/slippers when out of bed Taken 05/05/2020 1030 by Albertina Marie, JANA Safety Promotion/Fall Prevention: activity supervised assistive device/personal items within reach clutter free environment maintained fall prevention program maintained gait belt toileting scheduled safety round/check completed room organization consistent nonskid shoes/slippers when out of bed Taken 05/05/2020 0830 by Albertina Marie, JANA Safety Promotion/Fall Prevention: activity supervised assistive device/personal items within reach clutter free environment maintained fall prevention program maintained gait belt toileting scheduled safety round/check completed room organization consistent nonskid shoes/slippers when out of bed Problem: Bleeding (Spinal Surgery) Goal: Absence of Bleeding Outcome: Ongoing, Progressing Problem: Bowel Elimination Impaired (Spinal Surgery) Goal: Effective Bowel Elimination Outcome: Ongoing, Progressing Problem: Functional Ability Impaired (Spinal Surgery) Goal: Optimal Functional Ability Outcome: Ongoing, Progressing Intervention: Optimize Functional Status Recent Flowsheet Documentation Taken 05/05/2020 1836 by Albertina Marie RN Positioning/Transfer Devices: pillows in use Taken 05/05/2020 1600 by Albertina Marie, JANA Positioning/Transfer Devices: pillows in use Taken 05/05/2020 1400 by Albertina Marie, JANA Positioning/Transfer Devices: pillows in use Taken 05/05/2020 1240 by Albertina Marie, JANA Positioning/Transfer Devices: pillows in use Taken 05/05/2020 1030 by Albertina Marie, JANA Positioning/Transfer Devices: pillows in use Taken 05/05/2020 0830 by Albertina Marie, JANA Positioning/Transfer Devices: pillows in use Problem: Infection (Spinal Surgery) Goal: Absence of Infection Signs and Symptoms Outcome: Ongoing, Progressing Problem: Neurologic Impairment (Spinal Surgery) Goal: Optimal Neurologic Function Outcome: Ongoing, Progressing Intervention: Optimize Neurologic Function Recent Flowsheet Documentation Taken 05/05/2020 1836 by Albertina Marie, RN Body Position: supine Pressure Reduction Devices: pressure-redistributing mattress utilized Taken 05/05/2020 1600 by Albertina Marie RN Body Position: supine Pressure Reduction Devices: pressure-redistributing mattress utilized Taken 05/05/2020 1400 by Albertina Marie RN Body Position: supine Pressure Reduction Devices: pressure-redistributing mattress utilized Taken 05/05/2020 1240 by Albertina Marie RN Body Position: supine Pressure Reduction Devices: pressure-redistributing mattress utilized Taken 05/05/2020 1030 by Albertina Marie RN Body Position: supine Pressure Reduction Devices: pressure-redistributing mattress utilized Taken 05/05/2020 0830 by Albertina Marie RN Body Position: supine Pressure Reduction Devices: pressure-redistributing mattress utilized Problem: Ongoing Anesthesia Effects (Spinal Surgery) Goal: Anesthesia/Sedation Recovery Outcome: Ongoing, Progressing Intervention: Optimize Anesthesia Recovery Recent Flowsheet Documentation Taken 05/05/2020 1836 by Albertina Marie RN Safety Promotion/Fall Prevention: activity supervised assistive device/personal items within reach clutter free environment maintained fall prevention program maintained gait belt toileting scheduled safety round/check completed room organization consistent nonskid shoes/slippers when out of bed Taken 05/05/2020 1600 by Albertina Marie RN Safety Promotion/Fall Prevention: activity supervised assistive device/personal items within reach clutter free environment maintained elopement precautions gait belt toileting scheduled safety round/check completed room organization consistent nonskid shoes/slippers when out of bed Taken 05/05/2020 1400 by Albertina Marie RN Safety Promotion/Fall Prevention: activity supervised assistive device/personal items within reach clutter free environment maintained fall prevention program maintained gait belt toileting scheduled safety round/check completed room organization consistent nonskid shoes/slippers when out of bed Taken 05/05/2020 1240 by Albertina Marie RN Safety Promotion/Fall Prevention: activity supervised assistive device/personal items within reach clutter free environment maintained fall prevention program maintained gait belt toileting scheduled safety round/check completed room organization consistent nonskid shoes/slippers when out of bed Taken 05/05/2020 1030 by Albertina Marie RN Safety Promotion/Fall Prevention: activity supervised assistive device/personal items within reach clutter free environment maintained fall prevention program maintained gait belt toileting scheduled safety round/check completed room organization consistent nonskid shoes/slippers when out of bed Taken 05/05/2020 0830 by Albertina Marie RN Safety Promotion/Fall Prevention: activity supervised assistive device/personal items within reach clutter free environment maintained fall prevention program maintained gait belt toileting scheduled safety round/check completed room organization consistent nonskid shoes/slippers when out of bed Reorientation Measures: reorientation provided Problem: Pain (Spinal Surgery) Goal: Acceptable Pain Control Outcome: Ongoing, Progressing Problem: Postoperative Nausea and Vomiting (Spinal Surgery) Goal: Nausea and Vomiting Relief Outcome: Ongoing, Progressing Problem: Postoperative Urinary Retention (Spinal Surgery) Goal: Effective Urinary Elimination Outcome: Ongoing, Progressing Intervention: Monitor and Manage Urinary Retention Recent Flowsheet Documentation Taken 05/05/2020 1836 by Albertina Marie RN Urinary Elimination Promotion: toileting offered Taken 05/05/2020 1600 by Albertina Marie RN Urinary Elimination Promotion: toileting offered Taken 05/05/2020 1400 by Albertina Marie RN Urinary Elimination Promotion: toileting offered Taken 05/05/2020 1240 by Albertina Marie RN Urinary Elimination Promotion: toileting offered toileting scheduled Taken 05/05/2020 1030 by Albertina Marie RN Urinary Elimination Promotion: toileting offered Taken 05/05/2020 0830 by Albertina Marie RN Urinary Elimination Promotion: toileting offered Problem: Skin Injury Risk Increased Goal: Skin Health and Integrity Outcome: Ongoing, Progressing Intervention: Optimize Skin Protection Recent Flowsheet Documentation Taken 05/05/2020 1836 by Albertina Marie RN Pressure Reduction Techniques: frequent weight shift encouraged Head of Bed (HOB): HOB at 20-30 degrees Pressure Reduction Devices: pressure-redistributing mattress utilized Skin Protection: adhesive use limited Taken 05/05/2020 1600 by Albertina Marie RN Pressure Reduction Techniques: frequent weight shift encouraged Head of Bed (HOB): HOB at 20-30 degrees Pressure Reduction Devices: pressure-redistributing mattress utilized Skin Protection: adhesive use limited Taken 05/05/2020 1400 by Albertina Marie RN Pressure Reduction Techniques: frequent weight shift encouraged Head of Bed (HOB): HOB at 20-30 degrees Pressure Reduction Devices: pressure-redistributing mattress utilized Skin Protection: adhesive use limited transparent dressing maintained Taken 05/05/2020 1240 by Albertina Marie RN Pressure Reduction Techniques: frequent weight shift encouraged Head of Bed (HOB): HOB at 30-45 degrees Pressure Reduction Devices: pressure-redistributing mattress utilized Skin Protection: adhesive use limited Taken 05/05/2020 1030 by Albertina Marie RN Pressure Reduction Techniques: frequent weight shift encouraged Head of Bed (HOB): HOB at 20-30 degrees Pressure Reduction Devices: pressure-redistributing mattress utilized Skin Protection: adhesive use limited Taken 05/05/2020 0830 by Albertina Marie, JANA Pressure Reduction Techniques: frequent weight shift encouraged Head of Bed (HOB): HOB at 15 degrees Pressure Reduction Devices: pressure-redistributing mattress utilized Skin Protection: adhesive use limited Goal Outcome Evaluation: Plan of Care Reviewed With: patient Progress: no change Outcome Summary: Patient more confused this shift, A&O to self only. Baclofen discontinued, possibly contributing to increasedc confusion. BP highly elevated, PRN labetolol and scheduled BP meds managing it well, BP stable. Sinus tachycardia when awake and NSR while sleeping on tele, 2L NC. Several black, tarry stools this shift. Plan for hemodialysis tmr. Patient has been very drowsy all shift, in and out of sleep. When awake very odd mannerisms, keeping mouth open, sticking tongue out, and repeating words over and over. Muscle jerking noted, ativan given. Coverderm dressing to back intact w/ dried drainage. Continue to monitor. * Ronald Aguilar RN - 05/05/2020 5:52 AM EDT Problem: Device-Related Complication Risk (Hemodialysis) Goal: Safe, Effective Therapy Delivery Outcome: Ongoing, Progressing Intervention: Optimize Device Care and Function Recent Flowsheet Documentation Taken 05/05/2020 0400 by Ronald Aguilar, watch inspector Review/Management: medications reviewed Taken 05/05/2020 0200 by Ronald Aguilar, watch inspector Review/Management: medications reviewed Taken 05/04/20202355 by Ronald Aguilar RN Medication Review/Management: medications reviewed Taken 05/04/20202199 by Ronald Aguilar RN Medication Review/Management: medications reviewed Taken 05/04/20201999 by Ronald Aguilar RN Medication Review/Management: medications reviewed Problem: Hemodynamic Instability (Hemodialysis) Goal: Vital Signs Remain in Desired Range Outcome: Ongoing, Progressing Intervention: Optimize Blood Flow Recent Flowsheet Documentation Taken 05/04/20201999 by Ronald Aguilar RN Bleeding Precautions: blood pressure closely monitored Bleeding Management: dressing monitored Problem: Infection (Hemodialysis) Goal: Absence of Infection Signs and Symptoms Outcome: Ongoing, Progressing Intervention: Prevent or Manage Infection Recent Flowsheet Documentation Taken 05/05/2020399 by Ronald Aguilar RN Infection Prevention: cohorting utilized Taken 05/05/2020199 by Ronald Aguilar RN Infection Prevention: cohorting utilized Taken 05/04/20202355 by Ronald Aguilar RN Infection Prevention: cohorting utilized Taken 05/04/20202199 by Ronald Aguilar RN Infection Prevention: cohorting utilized Taken 05/04/20201999 by Ronald Aguilar RN Infection Prevention: cohorting utilized Problem: Pain Acute Goal: Optimal Pain Control Outcome: Ongoing, Progressing Intervention: Develop Pain Management Plan Recent Flowsheet Documentation Taken 05/04/20202199 by Ronald Aguilar RN Pain Management Interventions: see MAR Taken 05/04/20201999 by Ronald Aguilar RN Pain Management Interventions: see MAR Intervention: Prevent or Manage Pain Recent Flowsheet Documentation Taken 05/04/20201999 by Ronald Aguilar RN Sensory Stimulation Regulation: auditory stimulation minimized Sleep/Rest Enhancement: awakenings minimized Intervention: Optimize Psychosocial Wellbeing Recent Flowsheet Documentation Taken 05/04/20201999 by Ronald Aguilar RN Supportive Measures: active listening utilized Diversional Activities: television Problem: Adult Inpatient Plan of Care Goal: Plan of Care Review Outcome: Ongoing, Progressing Flowsheets (Taken 05/04/2020 1843 by Adrienne Sanches RN) Plan of Care Reviewed With: patient Goal: Patient-Specific Goal (Individualized) Outcome: Ongoing, Progressing Goal: Absence of Hospital-Acquired Illness or Injury Outcome: Ongoing, Progressing Intervention: Identify and Manage Fall Risk Recent Flowsheet Documentation Taken 05/05/2020 040 by Ronald Aguilar RN Safety Promotion/Fall Prevention: activity supervised Taken 05/05/2020 0200 by Ronald Aguilar RN Safety Promotion/Fall Prevention: activity supervised Taken 05/04/20202355 by Ronald Aguilar RN Safety Promotion/Fall Prevention: activity supervised Taken 05/04/20202199 by Ronald Aguilar RN Safety Promotion/Fall Prevention: activity supervised Taken 05/04/20201999 by Ronald Aguilar RN Safety Promotion/Fall Prevention: activity supervised Intervention: Prevent Skin Injury Recent Flowsheet Documentation Taken 05/05/2020 0400 by Ronald Aguilar RN Body Position: supine Taken 05/05/2020 0200 by Ronadl Aguilar RN Body Position: supine Taken 05/04/20202355 by Ronald Aguilar RN Body Position: supine Taken 05/04/20202199 by Ronald Aguilar RN Body Position: supine Taken 05/04/20201999 by Ronald Aguilar RN Body Position: supine Intervention: Prevent and Manage VTE (venous thromboembolism) Risk Recent Flowsheet Documentation Taken 05/05/2020 040 by Ronald Aguilar RN VTE Prevention/Management: sequential compression devices on Taken 05/05/2020 020 by Ronald Aguilar RN VTE Prevention/Management: sequential compression devices on Taken 05/04/20202355 by Ronald Aguilar RN VTE Prevention/Management: sequential compression devices on Taken 05/04/20202199 by Ronald Aguilar RN VTE Prevention/Management: sequential compression devices on Taken 05/04/20201999 by Ronald Aguilar RN VTE Prevention/Management: sequential compression devices on Intervention: Prevent Infection Recent Flowsheet Documentation Taken 05/05/2020 0400 by Ronald Aguilar RN Infection Prevention: cohorting utilized Taken 05/05/2020 020 by Ronald Aguilar RN Infection Prevention: cohorting utilized Taken 05/04/20202355 by Ronald Aguilar RN Infection Prevention: cohorting utilized Taken 05/04/20202199 by Ronald Aguilar RN Infection Prevention: cohorting utilized Taken 05/04/20201999 by Ronald Aguilar RN Infection Prevention: cohorting utilized Goal: Optimal Comfort and Wellbeing Outcome: Ongoing, Progressing Intervention: Provide Person-Centered Care Recent Flowsheet Documentation Taken 05/04/20201999 by Ronald Aguilar RN Trust Relationship/Rapport: care explained choices provided reassurance provided Goal: Readiness for Transition of Care Outcome: Ongoing, Progressing Problem: Fall Injury Risk Goal: Absence of Fall and Fall-Related Injury Outcome: Ongoing, Progressing Intervention: Identify and Manage Contributors to Fall Injury Risk Recent Flowsheet Documentation Taken 05/05/2020399 by Ronald Aguilar RN Medication Review/Management: medications reviewed Taken 05/05/2020199 by Ronald Aguilar RN Medication Review/Management: medications reviewed Taken 05/04/20202355 by Ronald Aguilar RN Medication Review/Management: medications reviewed Taken 05/04/20202199 by Ronald Aguilar RN Medication Review/Management: medications reviewed Taken 05/04/20201999 by Ronald Aguilar RN Medication Review/Management: medications reviewed Intervention: Promote Injury-Free Environment Recent Flowsheet Documentation Taken 05/05/2020399 by Ronald Aguilar RN Safety Promotion/Fall Prevention: activity supervised Taken 05/05/2020199 by Ronald Aguilar RN Safety Promotion/Fall Prevention: activity supervised Taken 05/04/20202355 by Ronald Aguilar RN Safety Promotion/Fall Prevention: activity supervised Taken 05/04/20202199 by Ronald Aguilar RN Safety Promotion/Fall Prevention: activity supervised Taken 05/04/20201999 by Ronald Aguilar RN Safety Promotion/Fall Prevention: activity supervised Problem: Bleeding (Spinal Surgery) Goal: Absence of Bleeding Outcome: Ongoing, Progressing Intervention: Monitor and Manage Bleeding Recent Flowsheet Documentation Taken 05/04/20201999 by Ronald Aguilar RN Bleeding Management: dressing monitored Problem: Bowel Elimination Impaired (Spinal Surgery) Goal: Effective Bowel Elimination Outcome: Ongoing, Progressing Intervention: Promote Effective Bowel Elimination Recent Flowsheet Documentation Taken 05/04/20201999 by Ronald Aguilar RN Bowel Elimination Promotion: adequate fluid intake promoted Problem: Functional Ability Impaired (Spinal Surgery) Goal: Optimal Functional Ability Outcome: Ongoing, Progressing Intervention: Optimize Functional Status Recent Flowsheet Documentation Taken 05/05/2020399 by Ronald Aguilar RN Positioning/Transfer Devices: pillows in use Taken 05/05/2020199 by Ronald Aguilar RN Positioning/Transfer Devices: pillows in use Taken 05/04/20202355 by Ronald Aguilar RN Positioning/Transfer Devices: pillows in use Taken 05/04/20202199 by Ronald Aguilar RN Positioning/Transfer Devices: pillows in use Taken 05/04/20201999 by Ronald Aguilar RN Positioning/Transfer Devices: pillows in use Problem: Infection (Spinal Surgery) Goal: Absence of Infection Signs and Symptoms Outcome: Ongoing, Progressing Problem: Neurologic Impairment (Spinal Surgery) Goal: Optimal Neurologic Function Outcome: Ongoing, Progressing Intervention: Optimize Neurologic Function Recent Flowsheet Documentation Taken 05/05/2020 0400 by Ronald Aguilar RN Body Position: supine Pressure Reduction Devices: pressure-redistributing mattress utilized Taken 05/05/2020 0200 by Ronald Aguilar RN Body Position: supine Pressure Reduction Devices: pressure-redistributing mattress utilized Taken 05/04/20202355 by Ronald Aguilar RN Body Position: supine Pressure Reduction Devices: pressure-redistributing mattress utilized Taken 05/04/20202199 by Ronald Aguilar RN Body Position: supine Pressure Reduction Devices: pressure-redistributing mattress utilized Taken 05/04/20201999 by Ronald Aguilar RN Body Position: supine Pressure Reduction Devices: pressure-redistributing mattress utilized Problem: Ongoing Anesthesia Effects (Spinal Surgery) Goal: Anesthesia/Sedation Recovery Outcome: Ongoing, Progressing Intervention: Optimize Anesthesia Recovery Recent Flowsheet Documentation Taken 05/05/2020 0400 by Ronald Aguilar RN Safety Promotion/Fall Prevention: activity supervised Taken 05/05/2020199 by Ronald Aguilar RN Safety Promotion/Fall Prevention: activity supervised Taken 05/04/20202355 by Ronald Aguilar RN Safety Promotion/Fall Prevention: activity supervised Taken 05/04/20202199 by Ronald Aguilar RN Safety Promotion/Fall Prevention: activity supervised Taken 05/04/20201999 by Ronald Aguilar RN Patient Tolerance (IS): good Safety Promotion/Fall Prevention: activity supervised Administration (IS): instruction provided, follow-up Reorientation Measures: reorientation provided Problem: Pain (Spinal Surgery) Goal: Acceptable Pain Control Outcome: Ongoing, Progressing Intervention: Prevent or Manage Pain Recent Flowsheet Documentation Taken 05/04/20202199 by Ronald Aguilar RN Pain Management Interventions: see MAR Taken 05/04/20201999 by Ronald Aguilar RN Pain Management Interventions: see MAR Problem: Postoperative Nausea and Vomiting (Spinal Surgery) Goal: Nausea and Vomiting Relief Outcome: Ongoing, Progressing Problem: Postoperative Urinary Retention (Spinal Surgery) Goal: Effective Urinary Elimination Outcome: Ongoing, Progressing Intervention: Monitor and Manage Urinary Retention Recent Flowsheet Documentation Taken 05/04/20201999 by Ronald Aguilar RN Urinary Elimination Promotion: toileting offered Problem: Skin Injury Risk Increased Goal: Skin Health and Integrity Outcome: Ongoing, Progressing Intervention: Optimize Skin Protection Recent Flowsheet Documentation Taken 05/05/2020 0400 by Ronald Aguilar RN Pressure Reduction Techniques: frequent weight shift encouraged Head of Bed (HOB): [facility] elevated Pressure Reduction Devices: pressure-redistributing mattress utilized Skin Protection: adhesive use limited incontinence pads utilized Taken 05/05/2020 0200 by Ronald Aguilar RN Pressure Reduction Techniques: frequent weight shift encouraged Head of Bed (HOB): [facility] elevated Pressure Reduction Devices: pressure-redistributing mattress utilized Skin Protection: adhesive use limited Taken 05/04/2020 2356 by Ronald Aguilar RN Pressure Reduction Techniques: frequent weight shift encouraged Head of Bed (HOB): [facility] elevated Pressure Reduction Devices: pressure-redistributing mattress utilized Skin Protection: adhesive use limited Taken 05/04/2020 2200 by Ronald Aguilar RN Pressure Reduction Techniques: frequent weight shift encouraged Head of Bed (HOB): [facility] elevated Pressure Reduction Devices: pressure-redistributing mattress utilized Skin Protection: adhesive use limited Taken 05/04/20201999 by Ronald Aguilar RN Pressure Reduction Techniques: frequent weight shift encouraged Head of Bed (HOB): [facility] elevated Pressure Reduction Devices: pressure-redistributing mattress utilized Skin Protection: adhesive use limited Goal Outcome Evaluation: Plan of Care Reviewed With: patient Progress: no change * Deisy Jones RN - 05/05/2020 3:29 AM EDT Patient went to Radiology for flexion/extension x-ray. Patient was unable to stand with the assist of 3. The Wet Suit Gluer said he could not get films if the patient was unable to stand at least for a moment. We attempted to stand him and had no success. The patient is too weak to hold his own weight. * Adrienne Sanches RN - 05/04/2020 6:46 PM EDT Goal Outcome Evaluation: Plan of Care Reviewed With: patient Progress: no change Outcome Summary: Patient alert and oriented confused at times. Drowsy asleep in between care. pt rates pain a 10 with any paramjit of movement. Schduled Oxycodone and Dilaudid given PRN. BM today moderateamount dark brown color. In dialysis from aprox 0745 to 1230. 2.5 L removed. K + rechecked 3.3 notified Endoscopy stated was ok for pt go ahead and go for EGD. Pt still with Endo. X ray of lumbar spine pending will pass off to night RN to premedicate prior to xray as pt needs to stand for this. * Blake Simpson RN - 05/04/2020 8:57 AM EDT HD in progress. * Ronald Aguilar RN - 05/04/2020 5:57 AM EDT Pt sleeping quietly at shift change. VSS. No c/o pain or discomfort at present time. DX to lumbar back CDI. Neurovascular checks WDL. Given prn IV pain medication twice at Pt's request. Pain improvedafter administration. Pt alert and orientated at times and confused at others. Pt is sleeping quietly this am.. will continue to monitor. * Eneida Brody RN - 05/03/2020 7:41 PM EDT Patient has had complaints of pain throughout the shift PO medications utilized for pain control with scheduled medications added and seem to control. IV available if needed. Patient was assist of 2 to get to BSC with constant redirect given. Several tarry BMs noted GI at bedside with plan in placePatient demonstrated moments of confusion and had trouble focusing flight of ideas would stream. Dressing remained CDI. Small amount of UOP noted. VS were inconsistent. Plan is for EGD on Monday and 2.5L removed during dialysis. Will contine to monitor patient * Elieser Hawkins, PT - 05/03/2020 1:00 PM EDT Problem: Adult Inpatient Plan of Care Goal: Plan of Care Review Flowsheets (Taken 05/03/2020 1300) Progress: no change Plan of Care Reviewed With: patient Outcome Summary: Pt refusing OOB mobility this session due to severe low back pain, rated 10/10, and has been this way all morning. Pt educated on importance of continued mobility in order to improvefunction. Pt agreeable to exercise. Reviewed HEP and spinal precautions. Will continue to progress strength and mobility as able. * Sujata Boogie RN - 05/03/2020 7:20 AM EDT Patient alert and oriented with periods of forgetfulness. Dressing CDI. BP and HR elevated during shift, night time nanny ESL INSTRUCTOR notified and new orders given. PRN tylenol, percocet and dilaudid given for pain. Tarry BM during shift, night time nanny ESL INSTRUCTOR notified and orders for STAT CBC/Type&screen given. Sleeping between care rounds. * Eneida Brody RN - 05/02/2020 7:41 PM EDT Patient has had complaints of pain throughout the shift. PO medications utilized for pain control. IV available if needed. Patient was assist of 2 to get to BSC with constant redirect given. Was onlyable to tolerate sitting (very reclined) in the chair for 1 hour. Several tarry BMs noted with occult blood being positive. Dr. Grace aware. Patient demonstrated moments of confusion and had trouble focusing flight of ideas would stream. Dressing remained CDI. Small amount of UOP noted. VS were inconsistent and varied from one reading to the next. Will contine to monitor patient. * Elieser Hawkins, PT - 05/02/2020 10:28 AM EDT Problem: Adult Inpatient Plan of Care Goal: Plan of Care Review Flowsheets (Taken 05/02/2020 1028) Progress: improving Plan of Care Reviewed With: patient Outcome Summary: Pt requiring mod-max Ax2 for bed mobility. STS, and stand-pivot transfers from bed-BSC and BSC-chair performed with mod Ax2 and RW. Pt unable to take steps for gait as he was in 10/10 pain, RN present and aware. Reviewed HEP, spinal precautions, and logroll technique. Will continueto progress strength and mobility as able. * Deisy Jones RN - 05/02/2020 2:41 AM EDT Went in to see patient on rounds and he was telling me that he had been transported to x-ray around3-4 on 05/01. He said he feels like he is in more pain since. * Shannan Evans RN - 05/02/2020 12:43 AM EDT A&Ox4, mood/affect appropriate. Speech clear/logical. Lung sound diminished at bilateral upper lobes. Anuric due to hemodialysis. Border dressing to the back CDI. Will cont to mx. Call light in reach. * Momo Aragon PT - 04/30/2020 10:35 AM EDT Problem: Adult Inpatient Plan of Care Goal: Plan of Care Review Recent Flowsheet Documentation Taken 04/30/2020 1035 by Momo Aragon PT Progress: no change Outcome Summary: Patient presents with high anxiety about mobilizing. He requires max assist for bed mobility . HE was unable to tolerate sitting for very long and refused to stand or attempt walking. Overall his legs are weak, however he is mostly limited by pain and anxiety. Recommend Acute rehabat discharge * Laurence Trujillo RN - 04/30/2020 6:08 AM EDT Problem: Adult Inpatient Plan of Care Goal: Plan of Care Review Outcome: Ongoing, Progressing Flowsheets Taken 04/30/2020 0603 by Laurence Trujillo RN Outcome Summary: Pt remains confused. IV and PO medication administered for pain. Lowest pt rated his pain this shift was 8/10. Continues to have pain down right leg. Dressing CDI. No urine output this shift. Mine drain output 20ml. On tele, sinus tachycardia. HR rate is in 110's when asleep and 120's when awake. PA notified, no new orders. Will continue to monitor. Taken 04/29/2020 1834 by Bridgett Hernandez RN Plan of Care Reviewed With: patient * Khushi Blood RN - 04/29/2020 12:10 PM EDT HD in progress. * Laurence Trujillo RN - 04/29/2020 7:45 AM EDT Problem: Adult Inpatient Plan of Care Goal: Plan of Care Review Outcome: Ongoing, Not Progressing Flowsheets (Taken 04/29/2020 0732) Progress: no change Plan of Care Reviewed With: patient Outcome Summary: Pt is confused. Last night at 2300 pt was very confused and attempted to leave AMA, hospitalist came to bedside and spoke with patient. VSS. On tele, sinus tachycardia. Pt pain has been uncontrolled- IV dilaudid and PO pain medication administered, heating pad in place. Will continue to monitor. * Judi Truong RN - 04/28/2020 4:52 PM EDT Problem: Infection (Hemodialysis) Goal: Absence of Infection Signs and Symptoms Outcome: Ongoing, Progressing Problem: Device-Related Complication Risk (Hemodialysis) Goal: Safe, Effective Therapy Delivery Outcome: Ongoing, Progressing Intervention: Optimize Device Care and Function Recent Flowsheet Documentation Taken 04/28/2020 1530 by Judi Truong watch inspector Review/Management: medications reviewed HD today documented in this encounter OR Notes * Op Note - Yinka Garnica MD - 04/29/2020 5:53 PM EDT Operation note Preoperative diagnosis 1. Morbid obesity 2. Cauda equina compression with absence of cauda equina syndrome 3. Intractable back pain 4. Inability to walk history of liver transplant immunosuppression end-stage renal diseaseon dialysis Postoperative diagnosis same Procedures performed L5 laminectomy removal of epidural abscess Surgeon: Yinka Garnica MD Assistants: Tim Coppola my physician's business banking sales assistant was present and personally scrubbed the entirety of the procedure, they assisted suctioning, retraction, approach, and closure of the case Anesthesia: Normal endotracheal anesthesia ASA Class: 4 Mobile spondylitic segment L5 lamina as expected Epidural abscess under pressure ventrally copious disc fragments and infected phlegmon and Complications none apparent 100 cc blood loss microscope used Procedure in detail after formal written consent was obtained the patient was taken to the operating room endotracheally intubated given preoperative antimicrobial prophylaxis they were prepped and draped in the usual sterile manner all bony prominences and genitalia were padded to prevent neurologic injury. At this point in time the patient was given local anesthesia at the operative level fluoroscopic guidance confirmed as 45 the correct level and a skin incision was made dissection was carried down through the skin is cutaneous tissues the paraspinal musculature was spread off of the L4-L5 and S1 lamina at this point in time fluoroscopic guidance identified that it was over the cephalad portion ofthe L4 pedicle The L5 lamina was noted with bilateral pars defects as expected this was thinned down and the lamina was removed upon removing the lamina egress of fat was under significant pressure the dura was noted to be tense and bilateral facetectomies were completed in their entirety given the mobilized scarred and pars Exploring under the L5 exiting nerve roots gross egress of pus under pressure oozed and using a combination of ball probes etc. this was debrided and irrigated with orthopedic irrigation a ball probeeasily passed into the neural foramina bilaterally at L5 and L4 Given the patient's infection and medical comorbidities the decision was made to perform simple laminectomy given the instrumentation risks After decompression was obtained there is copious irrigated meticulous hemostasis maintained and the skin was closed in layers over a flat MINE drain documented in this encounter ED Notes * Kym Garcia DO - 04/28/2020 5:20 AM EDT Images from the original note were not included. EMERGENCY DEPARTMENT ENCOUNTER Pt Name: Leoncio Rollins Birthdate: 1975 Date of evaluation: 04/27/2020 Provider: Kym Garcia DO CHIEF COMPLAINT Chief Complaint Patient presents with ??? Back Pain ??? Multiple complaints HISTORY OF PRESENT ILLNESS (Location/Symptom, Timing/Onset, Context/Setting, Quality, Duration, Modifying Factors, Severity.) Leoncio Rollins is a 45 y.o. male who presents to the emergency department for evaluation of generalized weakness, increasing lower back pain over the last week or so. Denies any fall, injury or trauma. States he does take dialysis with a home hemodialysis Monday through Monday but states he has missed his last couple runs. He notes he has been at a few different outside facilities unsure of whichwork-up is been completed but he presents today with a continued lower back pain without any loss of bowel or bladder function. He still does make some urine with his dialysis. He denies any recent interventions or surgeries to his back. He states he was trying to change his dialysate out and then went to stand up and started noticing some lower back pain. Right-sided sciatica type symptoms are appreciated. No saddle anesthesia. Denies history of IV drug abuse. Patient denies any fever chills, no chest pain or difficulty breathing. Patient denies any other acute systemic complaints at this time. Nursing notes were reviewed. REVIEW OF SYSTEMS (2-9 systems for level 4, 10 or more for level 5) ROS: General: No fevers, no chills, no weakness Cardiovascular: No chest pain, no palpitations Respiratory: No shortness of breath, no cough, no wheezing Gastrointestinal: No pain, no nausea, no vomiting, no diarrhea Musculoskeletal: Positive lower lumbar pain, right-sided sciatica Skin: No rash, no easy bruising Neurologic: No speech problems, no headache, no extremity numbness, no extremity tingling, no extremity weakness Psychiatric: No anxiety Genitourinary: No dysuria, no hematuria Except as noted above the remainder of the review of systems was reviewed and negative. PAST MEDICAL HISTORY Past Medical History: Diagnosis Date ??? Diabetes mellitus (CMS/HCC) ??? Dialysis patient (CMS/HCC) ??? Hemorrhage THROAT VARICIES ??? Liver transplanted (CMS/HCC) SURGICAL HISTORY Past Surgical History: Procedure Laterality Date ??? CHOLECYSTECTOMY CURRENT MEDICATIONS Current Facility-Administered Medications: ??? cefTRIAXone (ROCEPHIN) 1 g/100 mL 0.9% NS (MBP), 1 g, Intravenous, Once, Kym Garcia,DO ??? sodium chloride 0.9 % flush 10 mL, 10 mL, Intravenous, PRN, Kym Garcia, DO ??? vancomycin 2500 mg/500 mL 0.9% NS IVPB ([facility]), 20 mg/kg, Intravenous, Once, Kym Garcia, DO Current Outpatient Medications: ??? ALPRAZolam (XANAX) 1 MG tablet, Take 1 mg by mouth 1 (One) Time., Disp: , Rfl: ??? HYDRALAZINE HCL PO, Take 100 mg by mouth 3 (Three) Times a Day., Disp: , Rfl: ??? insulin NPH (humuLIN N,novoLIN N) 100 UNIT/ML injection, Inject under the skin into the appropriate area as directed 2 (Two) Times a Day Before Meals., Disp: , Rfl: ??? mycophenolate (CELLCEPT) 250 MG capsule, Take by mouth 1 (One) Time., Disp: , Rfl: ??? NIFEdipine CC (ADALAT CC) 90 MG 24 hr tablet, Take 90 mg by mouth 2 (Two) Times a Day., Disp: ,Rfl: ALLERGIES Patient has no known allergies. FAMILY HISTORY History reviewed. No pertinent family history. SOCIAL HISTORY Social History Socioeconomic History ??? Marital status: Spouse name: Not on file ??? Number of children: Not on file ??? Years of education: Not on file ??? Highest education level: Not on file Tobacco Use ??? Smoking status: Never Smoker ??? Smokeless tobacco: Never Used Substance and Sexual Activity ??? Alcohol use: Never Frequency: Never ??? Drug use: Never PHYSICAL EXAM (up to 7 for level 4, 8 or more for level 5) Vitals: 04/28/20 0430 04/28/20 0500 04/28/20 0530 04/28/20 0801 BP: (!) 130/117 107/70 112/65 136/87 Pulse: 98 94 95 94 Resp: 20 Temp: 98.5 ??F (36.9 ??C) TempSrc: Oral SpO2: 97% 97% (!) 89% 93% Weight: Height: Physical Exam General : Patient is awake, alert, oriented, in no acute distress, nontoxic appearing HEENT: Pupils are equally round and reactive to light, EOMI, conjunctivae clear, sclerae white, there is no injection no icterus. Oral mucosa is moist, no exudate. Uvula is midline Neck: Neck is supple, full range of motion, trachea midline Cardiac: Heart regular rate, rhythm, no murmurs, rubs, or gallops Lungs: Lungs with decreased breath sound bilaterally, no wheezing rhonchi or rales, no accessory muscle usage. Chest wall: There is no tenderness to palpation over the chest wall or over ribs Abdomen: Abdomen is soft, nontender, nondistended. Postsurgical changes to the abdomen from a priorliver transplant. There is no firm or pulsatile masses, no rebound rigidity or guarding. Musculoskeletal: There is tenderness of the paraspinal lumbar musculature right greater than left. Positive straight leg raise on the right, distal reflexes are intact. Generalized weakness bilaterallower extremities is appreciated. Distal motor sensations intact. 5 out of 5 strength in all 4 extremities. No focal muscle deficits are appreciated Neuro: Motor intact, sensory intact, level of consciousness is normal, cerebellar function is normal, reflexes are grossly normal. No evidence of incontinence or loss of bowel or bladder function, nosaddle anesthesia noted Dermatology: Skin is warm and dry Psych: Mentation is grossly normal, cognition is grossly normal. Affect is appropriate. DIAGNOSTIC RESULTS EKG: All EKG's are interpreted by the Emergency Department Physician who either signs or Co-signs this chart in the absence of a gopherman. ECG 12 Lead Final Result Test Reason : Weak/Dizzy/AMS protocol Blood Pressure : / mmHG Vent. Rate : 099 BPM Atrial Rate : 099 BPM P-R Int : 166 ms QRS Dur : 106 ms QT Int : 374 ms P-R-T Axes : 058 035 038 degrees QTc Int : 479 ms Normal sinus rhythm Possible Left atrial enlargement Borderline ECG No previous ECGs available Confirmed by KYM GARCIA MD ([id number]) on 04/28/2020 8:01:00 AM Referred By: EDIN Confirmed By:KYM GARCIA MD RADIOLOGY: Non-plain film images such as CT, Ultrasound and MRI are read by the radiologist. Plain radiographic images are visualized and preliminarily interpreted by the emergency physician with the below findings: [] Radiologist's Report Reviewed: CT Abdomen Pelvis Without Contrast Final Result 1. Findings consistent with previous liver transplant. 2. Marked distention of the stomach with fluid. Correlate for clinical evidence of gastroparesis versus gastric outlet obstruction. 3. There is a fat-containing anterior abdominal wall incisional hernia sac without bowel obstruction. 4. The appendix is radiographically unremarkable. 5. There our probably some left upper quadrant varices. Study is limited by lack of IV contrast media. Signer Name: Heather Fried MD Signed: 04/28/2020 6:41 AM Workstation Name: [facility] CT Chest Without Contrast Final Result 1. The esophagus is patulous with circumferential wall thickening. Its distended with fluid and air-fluid level. The stomach is distended. See the separate abdomen pelvis dictation. 2. Apparent left pleural thickening and parenchymal scarring with distortion of the left superior hilum. A believe these findings are chronic but recommend comparison to outside chest CT to confirm long-term stability. Please correlate with any history. Study is limited by lack of IV contrast media. 3. Otherwise no active disease is seen in the chest. Signer Name: Heather Fried MD Signed: 04/28/2020 6:34 AM Workstation Name: [facility] Radiology [facility] CT Lumbar Spine Without Contrast Final Result 1. Grade 1 anterolisthesis of L5 on S1 secondary to chronic L5 pars defects. 2. There are air densities within the canal for 5 L5-S1 level. This can be seen in the setting of extruded vacuum disc formation but possibility of an epidural abscess is in the differential and should be excluded with MRI lumbar spine with and without contrast. Additionally there is endplate irregularity at the inferior endplate of L5 could be due to severe degenerative disc disease but alternate diagnosis includes discitis. Signer Name: Heather Fried MD Signed: 04/28/2020 6:28 AM Workstation Name: [facility] XR Chest 1 View Final Result No acute cardiopulmonary findings. Signer Name: Gabino Herr MD Signed: 04/28/2020 1:58 AM Workstation Name: [facility] MRI Lumbar Spine With & Without Contrast (Results Pending) ED BEDSIDE ULTRASOUND: Performed by ED Physician - none LABS: I have reviewed and interpreted all of the currently available lab results from this visit (if applicable): Results for orders placed or performed during the hospital encounter of 04/28/20 Comprehensive Metabolic Panel Specimen: Blood Result Value Ref Range Glucose 285 (H) 65 - 99 mg/dL BUN 109 (H) 6 - 20 mg/dL Creatinine 14.39 (H) 0.76 - 1.27 mg/dL Sodium 129 (L) 136 - 145 mmol/L Potassium 4.3 3.5 - 5.2 mmol/L Chloride 80 (L) 98 - 107 mmol/L CO2 19.0 (L) 22.0 - 29.0 mmol/L Calcium 9.3 8.6 - 10.5 mg/dL Total Protein 7.1 6.0 - 8.5 g/dL Albumin 3.60 3.50 - 5.20 g/dL ALT (SGPT) 48 (H) 1 - 41 U/L AST (SGOT) 24 1 - 40 U/L Alkaline Phosphatase 105 39 - 117 U/L Total Bilirubin 0.3 0.0 - 1.2 mg/dL eGFR Non Amer 4 (L) >60 mL/min/1.73 eGFR Amer Globulin 3.5 gm/dL A/G Ratio 1.0 g/dL BUN/Creatinine Ratio 7.6 7.0 - 25.0 Anion Gap 30.0 (H) 5.0 - 15.0 mmol/L Troponin Specimen: Blood Result Value Ref Range Troponin T 0.154 (C) 0.000 - 0.030 ng/mL Magnesium Specimen: Blood Result Value Ref Range Magnesium 2.4 1.6 - 2.6 mg/dL CBC Auto Differential Specimen: Blood Result Value Ref Range WBC 15.73 (H) 3.40 - 10.80 10*3/mm3 RBC 2.91 (L) 4.14 - 5.80 10*6/mm3 Hemoglobin 9.3 (L) 13.0 - 17.7 g/dL Hematocrit 27.2 (L) 37.5 - 51.0 % MCV 93.5 79.0 - 97.0 fL MCH 32.0 26.6 - 33.0 pg MCHC 34.2 31.5 - 35.7 g/dL RDW 12.9 12.3 - 15.4 % RDW-SD 43.5 37.0 - 54.0 fl MPV 9.4 6.0 - 12.0 fL Platelets 310 140 - 450 10*3/mm3 Neutrophil % 68.2 42.7 - 76.0 % Lymphocyte % 13.9 (L) 19.6 - 45.3 % Monocyte % 13.4 (H) 5.0 - 12.0 % Eosinophil % 1.3 0.3 - 6.2 % Basophil % 0.4 0.0 - 1.5 % Immature Grans % 2.8 (H) 0.0 - 0.5 % Neutrophils, Absolute 10.74 (H) 1.70 - 7.00 10*3/mm3 Lymphocytes, Absolute 2.18 0.70 - 3.10 10*3/mm3 Monocytes, Absolute 2.10 (H) 0.10 - 0.90 10*3/mm3 Eosinophils, Absolute 0.21 0.00 - 0.40 10*3/mm3 Basophils, Absolute 0.06 0.00 - 0.20 10*3/mm3 Immature Grans, Absolute 0.44 (H) 0.00 - 0.05 10*3/mm3 nRBC 0.1 0.0 - 0.2 /100 WBC Lactic Acid, Plasma Specimen: Blood Result Value Ref Range Lactate 3.2 (C) 0.5 - 2.0 mmol/L Lactic Acid, Reflex Timer (This will reflex a repeat order 3-3:15 hours after ordered.) Specimen: Blood Result Value Ref Range Hold Tube Hold for add-ons. Lactic Acid, Reflex Specimen: Blood Result Value Ref Range Lactate 1.3 0.5 - 2.0 mmol/L Light Blue Top Result Value Ref Range Extra Tube hold for add-on Green Top (Gel) Result Value Ref Range Extra Tube Hold for add-ons. Lavender Top Result Value Ref Range Extra Tube hold for add-on Gold Top - SST Result Value Ref Range Extra Tube Hold for add-ons. All other labs were within normal range or not returned as of this dictation. EMERGENCY DEPARTMENT COURSE and DIFFERENTIAL DIAGNOSIS/MDM: Vitals: Vitals: 04/28/20 0430 04/28/20 0500 04/28/20 0530 04/28/20 0801 BP: (!) 130/117 107/70 112/65 136/87 Pulse: 98 94 95 94 Resp: 20 Temp: 98.5 ??F (36.9 ??C) TempSrc: Oral SpO2: 97% 97% (!) 89% 93% Weight: Height: Patient with end-stage renal disease presents with progressively worsening lower back pain with right-sided sciatica.. She has missed his last round her to have dialysis as he does usually go 5 days a week. He does not have any loss of bowel or bladder function, no saddle anesthesia. Patient is nontoxic-appearing. Does have some generalized weakness in lower extremities reflexes are intact, pain is reproducible with a right straight leg raise in the right lower lumbar region. Patient is afebrile, vital signs are stable. We did obtain advanced imaging for further evaluation. Blood work with a leukocytosis, left shift. Acute renal failure as the patient missed his last round of dialysis. We did have the patient on broad-spectrum antibiotics. CT scan imaging the chest, abdomen pelvis and lumbar spine reviewed. Patient does have changes with possible at this herniation, discitis with a possibility for spinal epidural abscess given a small amount of air formation. Patient was covered with broad- spectrum antibiotics, MRI with and without contrast obtained. We will plan for admission the hospital for further treatment evaluation, dialysis. Case was discussed with our hospitalist team foradmission. MEDICATIONS ADMINISTERED IN ED: Medications sodium chloride 0.9 % flush 10 mL (has no administration in time range) vancomycin 2500 mg/500 mL 0.9% NS IVPB ([facility]) (has no administration in time range) cefTRIAXone (ROCEPHIN) 1 g/100 mL 0.9% NS (MBP) (has no administration in time range) PROCEDURES: Procedures CRITICAL CARE TIME Total Critical Care time was 0 minutes, excluding separately reportable procedures. There was a high probability of clinically significant/life threatening deterioration in the patient's condition which required my urgent intervention. FINAL IMPRESSION 1. Acute right-sided low back pain with right-sided sciatica 2. Discitis of lumbar region 3. Acute renal failure on dialysis (CMS/HCC) 4. Bandemia DISPOSITION/PLAN ED Disposition ED Disposition Condition Comment Decision to Admit PATIENT REFERRED TO: No follow-up provider specified. DISCHARGE MEDICATIONS: Medication List ASK your doctor about these medications ALPRAZolam 1 MG tablet Commonly known as: XANAX HYDRALAZINE HCL PO insulin NPH 100 UNIT/ML injection Commonly known as: humuLIN N,novoLIN N mycophenolate 250 MG capsule Commonly known as: CELLCEPT NIFEdipine CC 90 MG 24 hr tablet Commonly known as: ADALAT CC Comment: Please note this report has been produced using speech recognition software. Kym Garcia DO Attending Emergency Physician Kym Garcia DO 04/28/20 0804 documented in this encounter Miscellaneous Notes * Therapy Treatment Note - Momo Aragon, PT - 05/12/2020 1:10 PM EDT Patient Name: Leoncio Rollins : 1975 Today's Date: 05/12/2020 Admit Date: 04/28/2020 Visit Dx: ICD-10-CM ICD-9-CM 1. Acute right-sided low back pain with right-sided sciatica M54.41 724.2 724.3 2. Discitis of lumbar region M46.46 722.93 3. Acute renal failure on dialysis (CMS/HCC) N17.9 584.9 Z99.2 V45.11 4. Bandemia D72.825 288.66 5. Abscess in epidural space of lumbar spine G06.1 324.1 6. Gastrointestinal hemorrhage with melena K92.1 578.1 Patient Active Problem List Diagnosis ??? Sepsis (CMS/HCC) ??? KIM (nonalcoholic steatohepatitis) ??? History of liver transplant (CMS/HCC) ??? Immunosuppression (CMS/HCC) ??? Type 2 diabetes mellitus (CMS/HCC) ??? Altered mental state ??? ESRD (end stage renal disease) (CMS/HCC) ??? Hyponatremia ??? Discitis ??? Epidural abscess ??? Leukocytosis Past Medical History: Diagnosis Date ??? Diabetes mellitus (CMS/HCC) ??? Dialysis patient (CMS/HCC) ??? Hemorrhage THROAT VARICIES ??? Liver transplanted (CMS/HCC) Past Surgical History: Procedure Laterality Date ??? CHOLECYSTECTOMY ??? ENDOSCOPY N/A 05/04/2020 Procedure: ESOPHAGOGASTRODUODENOSCOPY; Surgeon: Dewey Betancourt MD; Location: [facility] ENDOSCOPY; Service: Gastroenterology; Laterality: N/A; ??? LUMBAR LAMINECTOMY DISCECTOMY DECOMPRESSION N/A 04/29/2020 Procedure: LUMBAR LAMINECTOMY DISCECTOMY DECOMPRESSION POSTERIOR L4-5; Surgeon: Yinka Garnica MD; Location: [facility] OR; Service: Neurosurgery; Laterality: N/A; General Information Row Name 05/12/20 1648 05/12/20 0890 Physical Therapy Time and Intention Document Type progress note/recertification -MN therapy note (daily note) -MN Mode of Treatment -- individual therapy;physical therapy -MN Row Name 05/12/20 1611 05/12/20 9473 General Information Patient Profile Reviewed -- Talks alot with multiple reasond not to attempt activities. -MN yes -MN Existing Precautions/Restrictions -- fall;spinal;other (see comments) anxiety -MN Row Name 05/12/20 9130 Cognition Orientation Status (Cognition) oriented to;person -MN Row Name 05/12/20 8987 Safety Issues, Functional Mobility Safety Issues Affecting Function (Mobility) insight into deficits/self-awareness;judgment;problem-solving;sequencing abilities -MN Impairments Affecting Function (Mobility) balance;endurance/activity tolerance;motor control;pain;strength -MN Comment, Safety Issues/Impairments (Mobility) gets very anxious -MN User Dyer (r) = Recorded By, (t) = Taken By, (c) = Cosigned By Initials Name Provider Type MN Momo Aragon PT Physical Therapist Mobility Row Name 05/12/20 1558 Bed Mobility Bed Mobility rolling right;rolling left;supine-sit;sit-supine -MN Rolling Left Henry (Bed Mobility) verbal cues;minimum assist (75% patient effort) -MN Rolling Right Henry (Bed Mobility) verbal cues;minimum assist (75% patient effort) -MN Scooting/Bridging Henry (Bed Mobility) maximum assist (25% patient effort);2 person assist;verbal cues -MN Supine-Sit Henry (Bed Mobility) 2 person assist;maximum assist (25% patient effort);verbal cues -MN Sit-Supine Henry (Bed Mobility) maximum assist (25% patient effort);2 person assist;verbal cues -MN Assistive Device (Bed Mobility) bed rails;draw sheet;head of bed elevated -MN Comment (Bed Mobility) spent long time working on rolling to prepare for log rolling into sitting. required repeted cues for sequencing. PT assisting at trunk and at legs to lower them slowly. Patient crying in pain on sitting. -[facility] 05/12/20 1558 Transfers Comment (Transfers) refused- dispite frequent attempts to sit forward -[facility] 05/12/20 1558 Gait/Stairs (Locomotion) Comment (Gait/Stairs) refused to walk -MN User Dyer (r) = Recorded By, (t) = Taken By, (c) = Cosigned By Initials Name Provider Type Momo Gunderson, PT Physical Therapist Obj/Interventions [facility] 05/12/20 1609 Balance Balance Interventions sitting -MN Comment, Balance working on midline sitting with multiple cues to wt shifting onto R hip. Patient required Bilateral upper extremity support to sit on edge of bed . Required rest break and layed backonto tech support in sitting. At this point patient refused to do more PT and was layed back into bed -MN User Dyer (r) = Recorded By, (t) = Taken By, (c) = Cosigned By Initials Name Provider Type Momo Gunderson, PT Physical Therapist Goals/Plan No documentation. Clinical Impression [facility] 05/12/20 1611 Pain Additional Documentation Pain Scale: FACES Pre/Post-Treatment (Group) -[facility] 05/12/20 1611 Pain Scale: Numbers Pre/Post-Treatment Pain Intervention(s) Repositioned -[facility] 05/12/20 1611 Pain Scale: FACES Pre/Post-Treatment Pain: FACES Scale, Pretreatment 2-->hurts little bit -MN Posttreatment Pain Rating 10-->hurts worst -MN Pain Location back -MN Row Name 05/12/20 1611 Plan of Care Review Plan of Care Reviewed With patient -MN Progress no change -MN Outcome Summary Patient continues to be limited in all mobility by anxiety and c/o back pain. He isdifficult to motivate and to stay on task. He is unrealistiic about his goals stating, I'm going to walk home tomorrow. -MN Row Name 05/12/20 1611 Therapy Assessment/Plan (PT) Patient/Family Therapy Goals Statement (PT) go home -MN Rehab Potential (PT) fair, will monitor progress closely -MN Criteria for Skilled Interventions Met (PT) yes;skilled treatment is necessary -MN Row Name 05/12/20 1611 Positioning and Restraints Pre-Treatment Position in bed -MN Post Treatment Position bed -MN In Bed supine;notified nsg;call light within reach;encouraged to call for assist -MN User Dyer (r) = Recorded By, (t) = Taken By, (c) = Cosigned By Initials Name Provider Type Momo Gunderson, PT Physical Therapist Outcome Measures Row Name 05/12/20 1643 How much help from another person do you currently need... Turning from your back to your side while in flat bed without using bedrails? 2 -SC Moving from lying on back to sitting on the side of a flat bed without bedrails? 2 -SC Moving to and from a bed to a chair (including a wheelchair)? 2 -SC Standing up from a chair using your arms (e.g., wheelchair, bedside chair)? 2 -SC Climbing 3-5 steps with a railing? 1 -SC To walk in hospital room? 1 -MN AM-PAC 6 Clicks Score (PT) 10 -MN Row Name 05/12/20 1646 05/12/20 1643 Functional Assessment Outcome Measure Options AM-PAC 6 Clicks Basic Mobility (PT) -MN AM-PAC 6 Clicks Basic Mobility (PT)-MN User Dyer (r) = Recorded By, (t) = Taken By, (c) = Cosigned By Initials Name Provider Type Momo Gunderson, PT Physical Therapist Physical Therapy Education Title: PT OT DECK MECHANIC Therapies (In Progress) Topic: Physical Therapy (In Progress) Point: Mobility training (In Progress) Learning Progress Summary Patient Acceptance, E, NR by MN at 05/12/2020 1643 Comment: reviewed benefits of activity Refuses, E,D, NR by at 05/08/2020 0911 Comment: Pt edu in benefits of activity; ambulation and HEP, POC. Acceptance, E,D, NR by at 05/07/2020 0925 Comment: Educated on importance of continued mobility in order to improve overall function. Reviewed HEP. Acceptance, E,D, VU by MINE at 05/06/2020 1510 Comment: Educated on safe sequencing with bed mobility, ambulatory transfers, and gait. Reviewed HEP and spinal precautions. Acceptance, E,D, NR by MINE at 05/03/2020 1300 Comment: Educated on importance of continued mobility in order to improve overall function. Reviewed HEP and spinal precautions. Acceptance, E,D, VU by at 05/02/2020 1028 Comment: Educated on safe sequencing with bed mobility and ambulatory transfers. Reviewed HEP, spinal precautions, and logroll technique Acceptance, E, NR by MN at 04/30/2020 1453 Comment: reviewed benefits of activity Family Acceptance, E,D, VU by at 05/06/2020 1510 Comment: Educated on safe sequencing with bed mobility, ambulatory transfers, and gait. Reviewed HEP and spinal precautions. Point: Home exercise program (In Progress) Learning Progress Summary Patient Acceptance, E, NR by MN at 05/12/2020 1643 Comment: reviewed benefits of activity Refuses, E,D, NR by at 05/08/2020 0911 Comment: Pt edu in benefits of activity; ambulation and HEP, POC. Acceptance, E,D, NR by at 05/07/2020 0925 Comment: Educated on importance of continued mobility in order to improve overall function. Reviewed HEP. Acceptance, E,D, VU by at 05/06/2020 1510 Comment: Educated on safe sequencing with bed mobility, ambulatory transfers, and gait. Reviewed HEP and spinal precautions. Acceptance, E,D, NR by MINE at 05/03/2020 1300 Comment: Educated on importance of continued mobility in order to improve overall function. Reviewed HEP and spinal precautions. Acceptance, E,D, VU by MINE at 05/02/2020 1028 Comment: Educated on safe sequencing with bed mobility and ambulatory transfers. Reviewed HEP, spinal precautions, and logroll technique Acceptance, E, NR by MN at 04/30/2020 1453 Comment: reviewed benefits of activity Family Acceptance, E,D, VU by MINE at 05/06/2020 1510 Comment: Educated on safe sequencing with bed mobility, ambulatory transfers, and gait. Reviewed HEP and spinal precautions. Point: Body mechanics (In Progress) Learning Progress Summary Patient Acceptance, E, NR by MN at 05/12/2020 1643 Comment: reviewed benefits of activity Acceptance, E,D, NR by MINE at 05/07/2020 0925 Comment: Educated on importance of continued mobility in order to improve overall function. Reviewed HEP. Acceptance, E,D, VU by at 05/06/2020 1510 Comment: Educated on safe sequencing with bed mobility, ambulatory transfers, and gait. Reviewed HEP and spinal precautions. Acceptance, E,D, NR by at 05/03/2020 1300 Comment: Educated on importance of continued mobility in order to improve overall function. Reviewed HEP and spinal precautions. Acceptance, E,D, VU by MINE at 05/02/2020 1028 Comment: Educated on safe sequencing with bed mobility and ambulatory transfers. Reviewed HEP, spinal precautions, and logroll technique Acceptance, E, NR by MN at 04/30/2020 1453 Comment: reviewed benefits of activity Family Acceptance, E,D, VU by at 05/06/2020 1510 Comment: Educated on safe sequencing with bed mobility, ambulatory transfers, and gait. Reviewed HEP and spinal precautions. Point: Precautions (In Progress) Learning Progress Summary Patient Acceptance, E, NR by MN at 05/12/2020 1643 Comment: reviewed benefits of activity Acceptance, E,D, NR by MINE at 05/07/2020 0925 Comment: Educated on importance of continued mobility in order to improve overall function. Reviewed HEP. Acceptance, E,D, VU by at 05/06/2020 1510 Comment: Educated on safe sequencing with bed mobility, ambulatory transfers, and gait. Reviewed HEP and spinal precautions. Acceptance, E,D, NR by at 05/03/2020 1300 Comment: Educated on importance of continued mobility in order to improve overall function. Reviewed HEP and spinal precautions. Acceptance, E,D, VU by at 05/02/2020 1028 Comment: Educated on safe sequencing with bed mobility and ambulatory transfers. Reviewed HEP, spinal precautions, and logroll technique Acceptance, E, NR by MN at 04/30/2020 1453 Comment: reviewed benefits of activity Family Acceptance, E,D, VU by at 05/06/2020 1510 Comment: Educated on safe sequencing with bed mobility, ambulatory transfers, and gait. Reviewed HEP and spinal precautions. User Dyer Initials Effective Dates Name Provider Type Discipline MN 01/30/15 - Momo Aragon, PT Physical Therapist PT 01/30/15 - Eneida Oro, PT Physical Therapist PT MINE 04/23/19 - Elieser Hawkins, DEMETRIUS Physical Therapist PT PT Recommendation and Plan Planned Therapy Interventions (PT): bed mobility training, gait training, home exercise program, patient/family education, transfer training, strengthening Plan of Care Reviewed With: patient Progress: no change Outcome Summary: Patient continues to be limited in all mobility by anxiety and c/o back pain. He is difficult to motivate and to stay on task. He is unrealistiic about his goals stating, I'm goingto walk home tomorrow. Time Calculation: PT Charges Row Name 05/12/20 1648 05/12/20 1310 Time Calculation Start Time -- 1310 -MN PT Received On -- 05/12/20 [facility] PT Goal Re-Cert Due Date -- 05/22/20 -MN Time Calculation- PT Total Timed Code Minutes- PT 40 minute(s) -MN -- Timed Charges 93940 - PT Therapeutic Activity Minutes 40 -MN -- User Dyer (r) = Recorded By, (t) = Taken By, (c) = Cosigned By Initials Name Provider Type MN Momo Aragon, PT Physical Therapist Therapy Charges for Today Code Description Service Date Service Provider Modifiers Qty [id number] PT THERAPEUTIC ACT EA 15 MIN 05/12/2020 Momo Aragon, PT GP 3 PT G-Codes Outcome Measure Options: AM-PAC 6 Clicks Basic Mobility (PT) AM-PAC 6 Clicks Score (PT): 10 Momo Aragon PT 05/12/2020 * Therapy Treatment Note - Eneida Oro, PT - 05/08/2020 9:11 AM EDT Patient Name: Leoncio Rollins : 1975 Today's Date: 05/08/2020 Admit Date: 04/28/2020 Visit Dx: ICD-10-CM ICD-9-CM 1. Acute right-sided low back pain with right-sided sciatica M54.41 724.2 724.3 2. Discitis of lumbar region M46.46 722.93 3. Acute renal failure on dialysis (CMS/HCC) N17.9 584.9 Z99.2 V45.11 4. Bandemia D72.825 288.66 5. Abscess in epidural space of lumbar spine G06.1 324.1 6. Gastrointestinal hemorrhage with melena K92.1 578.1 Patient Active Problem List Diagnosis ??? Sepsis (CMS/HCC) ??? KIM (nonalcoholic steatohepatitis) ??? History of liver transplant (CMS/HCC) ??? Immunosuppression (CMS/HCC) ??? Type 2 diabetes mellitus (CMS/HCC) ??? Altered mental state ??? ESRD (end stage renal disease) (CMS/HCC) ??? Hyponatremia ??? Discitis ??? Epidural abscess ??? Leukocytosis Past Medical History: Diagnosis Date ??? Diabetes mellitus (CMS/HCC) ??? Dialysis patient (CMS/HCC) ??? Hemorrhage THROAT VARICIES ??? Liver transplanted (CMS/HCC) Past Surgical History: Procedure Laterality Date ??? CHOLECYSTECTOMY ??? ENDOSCOPY N/A 05/04/2020 Procedure: ESOPHAGOGASTRODUODENOSCOPY; Surgeon: Dewey Betancourt MD; Location: [facility]; Service: Gastroenterology; Laterality: N/A; ??? LUMBAR LAMINECTOMY DISCECTOMY DECOMPRESSION N/A 04/29/2020 Procedure: LUMBAR LAMINECTOMY DISCECTOMY DECOMPRESSION POSTERIOR L4-5; Surgeon: Yinka Garnica MD; Location: [facility]; Service: Neurosurgery; Laterality: N/A; General Information Row Name 05/08/20910 Physical Therapy Time and Intention Document Type therapy note (daily note) - Mode of Treatment individual therapy;physical therapy - Row Name 05/08/20910 General Information Patient Profile Reviewed yes - Existing Precautions/Restrictions fall;spinal - Barriers to Rehab medically complex;previous functional deficit - Row Name 05/08/20910 Cognition Orientation Status (Cognition) oriented to;person - Row Name 05/08/20910 Safety Issues, Functional Mobility Safety Issues Affecting Function (Mobility) insight into deficits/self-awareness;problem-solving;judgment - Impairments Affecting Function (Mobility) balance;endurance/activity tolerance;motor control;pain;strength - Comment, Safety Issues/Impairments (Mobility) Pt performed transfer to chair then experienced 10/10pain in R mcknight and discontinued activity. - User Dyer (r) = Recorded By, (t) = Taken By, (c) = Cosigned By Initials Name Provider Type Eneida Oro, PT Physical Therapist Mobility Row Name 05/08/20910 Bed Mobility Comment (Bed Mobility) Pt sitting on EOB with RN upon PT entry. - Row Name 05/08/20910 Transfers Comment (Transfers) Pt performed sit to stand from EOB with mod A x 2, transfer from EOB to chair with mod A x 2 with RW. Max cues to present pt from sitting prematurely. - Row Name 05/08/20910 Bed-Chair Transfer Bed-Chair Henry (Transfers) verbal cues;nonverbal cues (demo/gesture);2 person assist;moderate assist (50% patient effort) - Row Name 05/08/20910 Sit-Stand Transfer Sit-Stand Henry (Transfers) verbal cues;nonverbal cues (demo/gesture);moderate assist (50% patient effort);2 person assist - Assistive Device (Sit-Stand Transfers) walker, front-wheeled - Row Name 05/08/20910 Gait/Stairs (Locomotion) Henry Level (Gait) verbal cues;nonverbal cues (demo/gesture);2 person assist;moderate assist(50% patient effort) - Assistive Device (Gait) walker, front-wheeled - Distance in Feet (Gait) 2' - Deviations/Abnormal Patterns (Gait) bilateral deviations - Bilateral Gait Deviations foot drop/toe drag;forward flexed posture;heel strike decreased;weight shift ability decreased - Comment (Gait/Stairs) Pt took steps to chair with RW with max encouragement and cues. Max cues to prevent pt from sitting prematurely. Pt experiencing significant increase in pain in R mcknight. Pt insisiting staff massage LE. PT edu pt in benefit of increased mobility to address; pt refused, stated Ican't! I have a bad leg! repeatedly. - User Dyer (r) = Recorded By, (t) = Taken By, (c) = Cosigned By Initials Name Provider Type Eneida Martle PT Physical Therapist Obj/Interventions Row Name 05/08/20910 Ankle (Therapeutic Exercise) Ankle (Therapeutic Exercise) AAROM (active assistive range of motion);AROM (active range of motion)- Ankle AROM (Therapeutic Exercise) dorsiflexion;plantarflexion;sitting;10 repetitions Pt edu in benefits of mobility for LE cramp/jimbo horse. Pt adamant about receiving a pill and a leg massage to address pain. - User Dyer (r) = Recorded By, (t) = Taken By, (c) = Cosigned By Initials Name Provider Type Eneida Martel PT Physical Therapist Goals/Plan Row Name 05/08/20910 Bed Mobility Goal 1 (PT) Activity/Assistive Device (Bed Mobility Goal 1, PT) scooting;sit to supine - Henry Level/Cues Needed (Bed Mobility Goal 1, PT) modified independence - Time Frame (Bed Mobility Goal 1, PT) half-way goal (LTG);10 days - Row Name 05/08/20910 Transfer Goal 1 (PT) Activity/Assistive Device (Transfer Goal 1, PT) swn-pi-nztop/kzczo-vb-cin;waj-yq-jlojb/vnzlk-zq-ybq;walker, rolling - Henry Level/Cues Needed (Transfer Goal 1, PT) minimum assist (75% or more patient effort) - Time Frame (Transfer Goal 1, PT) long term care phlebotomist goal (LTG);10 days - Row Name 05/08/20910 Gait Training Goal 1 (PT) Activity/Assistive Device (Gait Training Goal 1, PT) gait (walking locomotion);walker, rolling - Henry Level (Gait Training Goal 1, PT) minimum assist (75% or more patient effort) - Distance (Gait Training Goal 1, PT) 150 - Time Frame (Gait Training Goal 1, PT) long term care phlebotomist goal (LTG);10 days - Row Name 05/08/20910 Patient Education Goal (PT) Activity (Patient Education Goal, PT) back precautions - Henry/Cues/Accuracy (Memory Goal 2, PT) demonstrates adequately;verbalizes understanding - Time Frame (Patient Education Goal, PT) half-way goal (LTG);10 days - User Dyer (r) = Recorded By, (t) = Taken By, (c) = Cosigned By Initials Name Provider Type Eneida Martel, PT Physical Therapist Clinical Impression Row Name 05/08/20910 Pain Additional Documentation Pain Scale: FACES Pre/Post-Treatment (Group) - Row Name 05/08/20910 Pain Scale: Numbers Pre/Post-Treatment Pretreatment Pain Rating 2/10 -SH Posttreatment Pain Rating 10/10 - Pain Location - Orientation anterior - Pain Location other (see comments) mcknight - Pre/Posttreatment Pain Comment RN present for duration of treatment. - Pain Intervention(s) Repositioned;Massage - Row Name 05/08/20910 Plan of Care Review Plan of Care Reviewed With patient - Progress no change - Outcome Summary Pt participation in PT continues to be limited by pain. This session pt performed bed to chair transfer with mod A x 2 with RW which triggered a jimbo horse which halted participation in therapy despite extensive education. - Row Name 05/08/20910 Vital Signs O2 Delivery Pre Treatment room air - O2 Delivery Intra Treatment room air - O2 Delivery Post Treatment room air -SH Pre Patient Position Sitting - Intra Patient Position Standing - Post Patient Position Sitting - Row Name 05/08/20910 Positioning and Restraints Pre-Treatment Position other (comment) Sitting on edge of bed - Post Treatment Position chair - In Chair reclined;call light within reach;encouraged to call for assist;exit alarm on;notified nsg - User Dyer (r) = Recorded By, (t) = Taken By, (c) = Cosigned By Initials Name Provider Type Eneida Martel, PT Physical Therapist Outcome Measures Row Name 05/08/20910 How much help from another person do you currently need... Turning from your back to your side while in flat bed without using bedrails? 2 -SH Moving from lying on back to sitting on the side of a flat bed without bedrails? 2 -SH Moving to and from a bed to a chair (including a wheelchair)? 2 -SH Standing up from a chair using your arms (e.g., wheelchair, bedside chair)? 2 - Climbing 3-5 steps with a railing? 1 -SH To walk in hospital room? 2 -SH AM-PAC 6 Clicks Score (PT) 11 - Row Name 05/08/20 0911 Functional Assessment Outcome Measure Options AM-PAC 6 Clicks Basic Mobility (PT) - User Dyer (r) = Recorded By, (t) = Taken By, (c) = Cosigned By Initials Name Provider Type Eneida Oro PT Physical Therapist Physical Therapy Education Title: PT OT DECK MECHANIC Therapies (In Progress) Topic: Physical Therapy (In Progress) Point: Mobility training (In Progress) Learning Progress Summary Patient Refuses, E,D, NR by at 05/08/2020 0911 Comment: Pt edu in benefits of activity; ambulation and HEP, POC. Acceptance, E,D, NR by MINE at 05/07/2020 0925 Comment: Educated on importance of continued mobility in order to improve overall function. Reviewed HEP. Acceptance, E,D, VU by MINE at 05/06/2020 1510 Comment: Educated on safe sequencing with bed mobility, ambulatory transfers, and gait. Reviewed HEP and spinal precautions. Acceptance, E,D, NR by MINE at 05/03/2020 1300 Comment: Educated on importance of continued mobility in order to improve overall function. Reviewed HEP and spinal precautions. Acceptance, E,D, VU by MINE at 05/02/2020 1028 Comment: Educated on safe sequencing with bed mobility and ambulatory transfers. Reviewed HEP, spinal precautions, and logroll technique Acceptance, E, NR by MN at 04/30/2020 1453 Comment: reviewed benefits of activity Family Acceptance, E,D, VU by MINE at 05/06/2020 1510 Comment: Educated on safe sequencing with bed mobility, ambulatory transfers, and gait. Reviewed HEP and spinal precautions. Point: Home exercise program (In Progress) Learning Progress Summary Patient Refuses, E,D, NR by at 05/08/2020 0911 Comment: Pt edu in benefits of activity; ambulation and HEP, POC. Acceptance, E,D, NR by MINE at 05/07/2020 0925 Comment: Educated on importance of continued mobility in order to improve overall function. Reviewed HEP. Acceptance, E,D, VU by MINE at 05/06/2020 1510 Comment: Educated on safe sequencing with bed mobility, ambulatory transfers, and gait. Reviewed HEP and spinal precautions. Acceptance, E,D, NR by MINE at 05/03/2020 1300 Comment: Educated on importance of continued mobility in order to improve overall function. Reviewed HEP and spinal precautions. Acceptance, E,D, VU by MINE at 05/02/2020 1028 Comment: Educated on safe sequencing with bed mobility and ambulatory transfers. Reviewed HEP, spinal precautions, and logroll technique Acceptance, E, NR by MN at 04/30/2020 1453 Comment: reviewed benefits of activity Family Acceptance, E,D, VU by MINE at 05/06/2020 1510 Comment: Educated on safe sequencing with bed mobility, ambulatory transfers, and gait. Reviewed HEP and spinal precautions. Point: Body mechanics (In Progress) Learning Progress Summary Patient Acceptance, E,D, NR by MINE at 05/07/2020 0925 Comment: Educated on importance of continued mobility in order to improve overall function. Reviewed HEP. Acceptance, E,D, VU by MINE at 05/06/2020 1510 Comment: Educated on safe sequencing with bed mobility, ambulatory transfers, and gait. Reviewed HEP and spinal precautions. Acceptance, E,D, NR by MINE at 05/03/2020 1300 Comment: Educated on importance of continued mobility in order to improve overall function. Reviewed HEP and spinal precautions. Acceptance, E,D, VU by MINE at 05/02/2020 1028 Comment: Educated on safe sequencing with bed mobility and ambulatory transfers. Reviewed HEP, spinal precautions, and logroll technique Acceptance, E, NR by MN at 04/30/2020 1453 Comment: reviewed benefits of activity Family Acceptance, E,D, VU by MINE at 05/06/2020 1510 Comment: Educated on safe sequencing with bed mobility, ambulatory transfers, and gait. Reviewed HEP and spinal precautions. Point: Precautions (In Progress) Learning Progress Summary Patient Acceptance, E,D, NR by MINE at 05/07/2020 0925 Comment: Educated on importance of continued mobility in order to improve overall function. Reviewed HEP. Acceptance, E,D, VU by MINE at 05/06/2020 1510 Comment: Educated on safe sequencing with bed mobility, ambulatory transfers, and gait. Reviewed HEP and spinal precautions. Acceptance, E,D, NR by MINE at 05/03/2020 1300 Comment: Educated on importance of continued mobility in order to improve overall function. Reviewed HEP and spinal precautions. Acceptance, E,D, VU by at 05/02/2020 1028 Comment: Educated on safe sequencing with bed mobility and ambulatory transfers. Reviewed HEP, spinal precautions, and logroll technique Acceptance, E, NR by MN at 04/30/2020 1453 Comment: reviewed benefits of activity Family Acceptance, E,D, VU by at 05/06/2020 1510 Comment: Educated on safe sequencing with bed mobility, ambulatory transfers, and gait. Reviewed HEP and spinal precautions. User Dyer Initials Effective Dates Name Provider Type Discipline MN 01/30/15 - Momo Aragon, PT Physical Therapist PT 01/30/15 - Eneida Oro, PT Physical Therapist PT 04/23/19 - Elieser Hawkins, PT Physical Therapist PT PT Recommendation and Plan Plan of Care Reviewed With: patient Progress: no change Outcome Summary: Pt participation in PT continues to be limited by pain. This session pt performed bed to chair transfer with mod A x 2 with RW which triggered a jimbo horse which halted participation in therapy despite extensive education. Time Calculation: PT Charges Row Name 05/08/20 0911 Time Calculation Start Time 0911 - PT Received On 05/08/20 - PT Goal Re-Cert Due Date 05/11/20 - Time Calculation- PT Total Timed Code Minutes- PT 14 minute(s) - Timed Charges 07162 - Gait Training Minutes 6 -SH 18324 - PT Therapeutic Activity Minutes 8 -SH User Dyer (r) = Recorded By, (t) = Taken By, (c) = Cosigned By Initials Name Provider Type Eneida Oro, PT Physical Therapist Therapy Charges for Today Code Description Service Date Service Provider Modifiers Qty [id number] PT THERAPEUTIC ACT EA 15 MIN 05/08/2020 Eneida Oro, PT GP 1 PT G-Codes Outcome Measure Options: AM-PAC 6 Clicks Basic Mobility (PT) AM-PAC 6 Clicks Score (PT): 11 Eneida Oro PT 05/08/2020 * Therapy Treatment Note - Elieser Hawkins, PT - 05/07/2020 9:25 AM EDT Patient Name: Leoncio Rollins : 1975 Today's Date: 05/07/2020 Admit Date: 04/28/2020 Visit Dx: ICD-10-CM ICD-9-CM 1. Acute right-sided low back pain with right-sided sciatica M54.41 724.2 724.3 2. Discitis of lumbar region M46.46 722.93 3. Acute renal failure on dialysis (CMS/HCC) N17.9 584.9 Z99.2 V45.11 4. Bandemia D72.825 288.66 5. Abscess in epidural space of lumbar spine G06.1 324.1 6. Gastrointestinal hemorrhage with melena K92.1 578.1 Patient Active Problem List Diagnosis ??? Sepsis (CMS/HCC) ??? KIM (nonalcoholic steatohepatitis) ??? History of liver transplant (CMS/HCC) ??? Immunosuppression (CMS/HCC) ??? Type 2 diabetes mellitus (CMS/HCC) ??? Altered mental state ??? ESRD (end stage renal disease) (CMS/HCC) ??? Hyponatremia ??? Discitis ??? Epidural abscess ??? Leukocytosis Past Medical History: Diagnosis Date ??? Diabetes mellitus (CMS/HCC) ??? Dialysis patient (CMS/HCC) ??? Hemorrhage THROAT VARICIES ??? Liver transplanted (CMS/HCC) Past Surgical History: Procedure Laterality Date ??? CHOLECYSTECTOMY ??? ENDOSCOPY N/A 05/04/2020 Procedure: ESOPHAGOGASTRODUODENOSCOPY; Surgeon: Dewey Betancourt MD; Location: [facility]; Service: Gastroenterology; Laterality: N/A; ??? LUMBAR LAMINECTOMY DISCECTOMY DECOMPRESSION N/A 04/29/2020 Procedure: LUMBAR LAMINECTOMY DISCECTOMY DECOMPRESSION POSTERIOR L4-5; Surgeon: Yinka Garnica MD; Location: [facility] OR; Service: Neurosurgery; Laterality: N/A; General Information Row Name 05/07/20919 Physical Therapy Time and Intention Document Type therapy note (daily note) -MINE Mode of Treatment individual therapy;physical therapy -MINE Row Name 05/07/20919 General Information Patient Profile Reviewed yes -MINE Existing Precautions/Restrictions fall;spinal -MINE Row Name 05/07/20919 Cognition Orientation Status (Cognition) oriented x 3 -MINE Row Name 05/07/20919 Safety Issues, Functional Mobility Safety Issues Affecting Function (Mobility) ability to follow commands;insight into deficits/self-awareness;safety precautions follow- through/compliance;sequencing abilities;awareness of need for assistance;safety precaution awareness;judgment - Impairments Affecting Function (Mobility) balance;motor control;postural/trunk control;pain;strength;endurance/activity tolerance - Comment, Safety Issues/Impairments (Mobility) Pt refusing OOB activity this session due to 05/23 pain and fatigue. - User Dyer (r) = Recorded By, (t) = Taken By, (c) = Cosigned By Initials Name Provider Type Elieser Rojas, PT Physical Therapist Mobility Row Name 05/07/20924 Bed Mobility Comment (Bed Mobility) Pt refusing OOB activity due to pain, despite max encouragement and education - Row Name 05/07/20924 Transfers Comment (Transfers) Pt refusing OOB activity due to pain, despite max encouragement and education - Row Name 05/07/20924 Gait/Stairs (Locomotion) Henry Level (Gait) unable to assess - Comment (Gait/Stairs) Pt refusing OOB activity due to pain, despite max encouragement and education- User Dyer (r) = Recorded By, (t) = Taken By, (c) = Cosigned By Initials Name Provider Type Elieser Rojas, PT Physical Therapist Obj/Interventions Row Name 05/07/20924 Motor Skills Therapeutic Exercise hip;knee;ankle ab sets, BKFO, shoulder flexion - Row Name 05/07/20924 Hip (Therapeutic Exercise) Hip (Therapeutic Exercise) AROM (active range of motion);isometric exercises - Hip AROM (Therapeutic Exercise) bilateral;external rotation;internal rotation - Hip Isometrics (Therapeutic Exercise) gluteal sets;10 repetitions - Row Name 05/07/20924 Knee (Therapeutic Exercise) Knee (Therapeutic Exercise) isometric exercises - Knee AROM (Therapeutic Exercise) bilateral;heel slides;10 repetitions - Knee Isometrics (Therapeutic Exercise) bilateral;quad sets;10 repetitions - Row Name 05/07/20924 Ankle (Therapeutic Exercise) Ankle AROM (Therapeutic Exercise) bilateral;dorsiflexion;plantarflexion;10 repetitions - User Dyer (r) = Recorded By, (t) = Taken By, (c) = Cosigned By Initials Name Provider Type Elieser Rojas, DEMETRIUS Physical Therapist Goals/Plan No documentation. Clinical Impression [facility] Name 05/07/20924 Pain Additional Documentation Pain Scale: Numbers Pre/Post-Treatment (Group) -[facility] 05/07/20924 Pain Scale: Numbers Pre/Post-Treatment Pretreatment Pain Rating 10/10 - Posttreatment Pain Rating 10/10 - Pre/Posttreatment Pain Comment RN notified - Pain Intervention(s) Repositioned -[facility] Name 05/07/20924 Therapy Assessment/Plan (PT) Rehab Potential (PT) fair, will monitor progress closely - Criteria for Skilled Interventions Met (PT) yes;skilled treatment is necessary -[facility] Name 05/07/20924 Positioning and Restraints Pre-Treatment Position in bed - Post Treatment Position bed -MINE In Bed notified nsg;supine;call light within reach;encouraged to call for assist;exit alarm on;patient within staff view;with family/caregiver - User Dyer (r) = Recorded By, (t) = Taken By, (c) = Cosigned By Initials Name Provider Type Elieser Rojas, DEMETRIUS Physical Therapist Outcome Measures [facility] Name 05/07/20924 How much help from another person do you currently need... Turning from your back to your side while in flat bed without using bedrails? 2 -MINE Moving from lying on back to sitting on the side of a flat bed without bedrails? 2 -MINE Moving to and from a bed to a chair (including a wheelchair)? 1 -MINE Standing up from a chair using your arms (e.g., wheelchair, bedside chair)? 1 -MINE Climbing 3-5 steps with a railing? 1 -MINE To walk in hospital room? 1 -MINE AM-PAC 6 Clicks Score (PT) 8 -[facility] Name 05/07/20924 Functional Assessment Outcome Measure Options AM-PAC 6 Clicks Basic Mobility (PT) - User Dyer (r) = Recorded By, (t) = Taken By, (c) = Cosigned By Initials Name Provider Type Elieser Rojas, PT Physical Therapist Physical Therapy Education Title: PT OT DECK MECHANIC Therapies (In Progress) Topic: Physical Therapy (In Progress) Point: Mobility training (In Progress) Learning Progress Summary Patient Acceptance, E,D, NR by MINE at 05/07/2020 0925 Comment: Educated on importance of continued mobility in order to improve overall function. Reviewed HEP. Acceptance, E,D, VU by MINE at 05/06/2020 1510 Comment: Educated on safe sequencing with bed mobility, ambulatory transfers, and gait. Reviewed HEP and spinal precautions. Acceptance, E,D, NR by MINE at 05/03/2020 1300 Comment: Educated on importance of continued mobility in order to improve overall function. Reviewed HEP and spinal precautions. Acceptance, E,D, VU by MINE at 05/02/2020 1028 Comment: Educated on safe sequencing with bed mobility and ambulatory transfers. Reviewed HEP, spinal precautions, and logroll technique Acceptance, E, NR by MN at 04/30/2020 1453 Comment: reviewed benefits of activity Family Acceptance, E,D, VU by MINE at 05/06/2020 1510 Comment: Educated on safe sequencing with bed mobility, ambulatory transfers, and gait. Reviewed HEP and spinal precautions. Point: Home exercise program (In Progress) Learning Progress Summary Patient Acceptance, E,D, NR by MINE at 05/07/2020 0925 Comment: Educated on importance of continued mobility in order to improve overall function. Reviewed HEP. Acceptance, E,D, VU by MINE at 05/06/2020 1510 Comment: Educated on safe sequencing with bed mobility, ambulatory transfers, and gait. Reviewed HEP and spinal precautions. Acceptance, E,D, NR by MINE at 05/03/2020 1300 Comment: Educated on importance of continued mobility in order to improve overall function. Reviewed HEP and spinal precautions. Acceptance, E,D, VU by MINE at 05/02/2020 1028 Comment: Educated on safe sequencing with bed mobility and ambulatory transfers. Reviewed HEP, spinal precautions, and logroll technique Acceptance, E, NR by MN at 04/30/2020 1453 Comment: reviewed benefits of activity Family Acceptance, E,D, VU by MINE at 05/06/2020 1510 Comment: Educated on safe sequencing with bed mobility, ambulatory transfers, and gait. Reviewed HEP and spinal precautions. Point: Body mechanics (In Progress) Learning Progress Summary Patient Acceptance, E,D, NR by MINE at 05/07/2020 0925 Comment: Educated on importance of continued mobility in order to improve overall function. Reviewed HEP. Acceptance, E,D, VU by at 05/06/2020 1510 Comment: Educated on safe sequencing with bed mobility, ambulatory transfers, and gait. Reviewed HEP and spinal precautions. Acceptance, E,D, NR by at 05/03/2020 1300 Comment: Educated on importance of continued mobility in order to improve overall function. Reviewed HEP and spinal precautions. Acceptance, E,D, VU by at 05/02/2020 1028 Comment: Educated on safe sequencing with bed mobility and ambulatory transfers. Reviewed HEP, spinal precautions, and logroll technique Acceptance, E, NR by MN at 04/30/2020 1453 Comment: reviewed benefits of activity Family Acceptance, E,D, VU by at 05/06/2020 1510 Comment: Educated on safe sequencing with bed mobility, ambulatory transfers, and gait. Reviewed HEP and spinal precautions. Point: Precautions (In Progress) Learning Progress Summary Patient Acceptance, E,D, NR by at 05/07/2020 0925 Comment: Educated on importance of continued mobility in order to improve overall function. Reviewed HEP. Acceptance, E,D, VU by at 05/06/2020 1510 Comment: Educated on safe sequencing with bed mobility, ambulatory transfers, and gait. Reviewed HEP and spinal precautions. Acceptance, E,D, NR by at 05/03/2020 1300 Comment: Educated on importance of continued mobility in order to improve overall function. Reviewed HEP and spinal precautions. Acceptance, E,D, VU by at 05/02/2020 1028 Comment: Educated on safe sequencing with bed mobility and ambulatory transfers. Reviewed HEP, spinal precautions, and logroll technique Acceptance, E, NR by MN at 04/30/2020 1453 Comment: reviewed benefits of activity Family Acceptance, E,D, VU by at 05/06/2020 1510 Comment: Educated on safe sequencing with bed mobility, ambulatory transfers, and gait. Reviewed HEP and spinal precautions. User Dyer Initials Effective Dates Name Provider Type Discipline [place] 01/30/15 - Momo Aragon, PT Physical Therapist PT 04/23/19 - Elieser Hawkins, PT Physical Therapist PT PT Recommendation and Plan Plan of Care Reviewed With: patient Progress: improving Outcome Summary: Pt refusing OOB mobility due to 10/10 pain and fatigue, despite max education and encouragement. RN notified. Pt agreeable to exercise. Reviewed spinal precautions and logroll technique. Will continue to progress strength and mobility as able. Time Calculation: PT Charges Row Name 05/07/20 09 Time Calculation Start Time 924 - PT Received On 05/07/20 - PT Goal Re-Cert Due Date 05/11/20 - Time Calculation- PT Total Timed Code Minutes- PT 10 minute(s) -MINE Timed Charges 48078 - PT Therapeutic Exercise Minutes 10 -MINE User Dyer (r) = Recorded By, (t) = Taken By, (c) = Cosigned By Initials Name Provider Type Elieser Rojas, PT Physical Therapist Therapy Charges for Today Code Description Service Date Service Provider Modifiers Qty 74807329952 HC PT THER PROC EA 15 MIN 05/06/2020 Elieser Hawkins, PT GP 1 09346373020 HC PT THERAPEUTIC ACT EA 15 MIN 05/06/2020 Elieser Hawkins, PT GP 1 96973457983 HC PT THER SUPP EA 15 MIN 05/06/2020 Elieser Hawkins, PT GP 2 76160586773 HC PT THER PROC EA 15 MIN 05/07/2020 Elieser Hawkins, PT GP 1 PT G-Codes Outcome Measure Options: AM-PAC 6 Clicks Basic Mobility (PT) AM-PAC 6 Clicks Score (PT): 8 Elieser Hawkins PT 05/07/2020 * Therapy Treatment Note - Elieser Hawkins, PT - 05/06/2020 3:10 PM EDT Patient Name: Leoncio Rollins : 1975 Today's Date: 05/06/2020 Admit Date: 04/28/2020 Visit Dx: ICD-10-CM ICD-9-CM 1. Acute right-sided low back pain with right-sided sciatica M54.41 724.2 724.3 2. Discitis of lumbar region M46.46 722.93 3. Acute renal failure on dialysis ([facility]) N17.9 584.9 Z99.2 V45.11 4. Bandemia D72.825 288.66 5. Abscess in epidural space of lumbar spine G06.1 324.1 6. Gastrointestinal hemorrhage with melena K92.1 578.1 Patient Active Problem List Diagnosis ??? Sepsis (CMS/HCC) ??? KIM (nonalcoholic steatohepatitis) ??? History of liver transplant (CMS/HCC) ??? Immunosuppression (CMS/HCC) ??? Type 2 diabetes mellitus (CMS/HCC) ??? Altered mental state ??? ESRD (end stage renal disease) (CMS/HCC) ??? Hyponatremia ??? Discitis ??? Epidural abscess ??? Leukocytosis Past Medical History: Diagnosis Date ??? Diabetes mellitus (CMS/HCC) ??? Dialysis patient (CMS/HCC) ??? Hemorrhage THROAT VARICIES ??? Liver transplanted (CMS/HCC) Past Surgical History: Procedure Laterality Date ??? CHOLECYSTECTOMY ??? ENDOSCOPY N/A 05/04/2020 Procedure: ESOPHAGOGASTRODUODENOSCOPY; Surgeon: Dewey Betancourt MD; Location: [facility] END[facility]COPY; Service: Gastroenterology; Laterality: N/A; ??? LUMBAR LAMINECTOMY DISCECTOMY DECOMPRESSION N/A 04/29/2020 Procedure: LUMBAR LAMINECTOMY DISCECTOMY DECOMPRESSION POSTERIOR L4-5; Surgeon: Yinka Garnica MD; Location: [facility] OR; Service: Neurosurgery; Laterality: N/A; General Information Row Name 05/06/20 1510 Physical Therapy Time and Intention Document Type therapy note (daily note) -MINE Mode of Treatment individual therapy;physical therapy - Row Name 05/06/20 1510 General Information Patient Profile Reviewed yes -MINE Prior Level of Function min assist:;bed mobility;ADL's;transfer;all household mobility - Existing Precautions/Restrictions fall;spinal -MINE Row Name 05/06/20 151 Cognition Orientation Status (Cognition) oriented x 3 -MINE Row Name 05/06/20 1510 Safety Issues, Functional Mobility Safety Issues Affecting Function (Mobility) insight into deficits/self- awareness;safety precautionsfollow-through/compliance;safety precaution awareness;awareness of need for assistance -MINE Impairments Affecting Function (Mobility) balance;motor control;postural/trunk control;pain;strength;endurance/activity tolerance -MINE Comment, Safety Issues/Impairments (Mobility) Pt continues to experience increased pain, limiting his ability to perform mobility tasks -MINE User Dyer (r) = Recorded By, (t) = Taken By, (c) = Cosigned By Initials Name Provider Type MINE Elieser Hawkins, PT Physical Therapist Mobility Row Name 05/06/201509 Bed Mobility Bed Mobility rolling right;rolling left;sidelying-sit;sit-sidelying -MINE Rolling Left Henry (Bed Mobility) verbal cues;moderate assist (50% patient effort);2 person assist -MINE Rolling Right Henry (Bed Mobility) verbal cues;moderate assist (50% patient effort);2 personassist -MINE Sidelying-Sit Henry (Bed Mobility) verbal cues;maximum assist (25% patient effort);2 person assist -MINE Sit-Sidelying Henry (Bed Mobility) verbal cues;moderate assist (50% patient effort);2 personassist -MINE Assistive Device (Bed Mobility) bed rails;draw sheet;head of bed elevated -MINE Comment (Bed Mobility) Mod-max Ax2 for LE management and trunk control into sitting - Row Name 05/06/201509 Transfers Comment (Transfers) Verbal cues for safe hand placement during standing/sitting and maintaining spinal precautions with transfer performed 2x - Row Name 05/06/201509 Sit-Stand Transfer Sit-Stand Henry (Transfers) verbal cues;moderate assist (50% patient effort);2 person assist-MINE Assistive Device (Sit-Stand Transfers) walker, front-wheeled -MINE Row Name 05/06/201509 Gait/Stairs (Locomotion) Henry Level (Gait) verbal cues;moderate assist (50% patient effort);2 person assist -MINE Assistive Device (Gait) walker, front-wheeled -MINE Distance in Feet (Gait) 2 feet -MINE Deviations/Abnormal Patterns (Gait) bilateral deviations;anand decreased;gait speed decreased;antalgic;stride length decreased;base of support, narrow;festinating/shuffling - Bilateral Gait Deviations forward flexed posture;weight shift ability decreased;heel strike decreased - Henry Level (Stairs) not tested -MINE Comment (Gait/Stairs) Pt ambulated 2 feet with step to pattern and decreased speed. Pt required modA for balance and AD management throughout and was impulsive when attempting to sit down for rest. Pt requiring max verbal cueing for sequencing with gait. Gait limited by pain. - User Dyer (r) = Recorded By, (t) = Taken By, (c) = Cosigned By Initials Name Provider Type Elieser Rojas, PT Physical Therapist Obj/Interventions Row Name 05/06/201509 Motor Skills Therapeutic Exercise knee;hip;ankle;other (see comments) ab sets, BKFO, shoulder flexion -[facility] Name 05/06/201509 Hip (Therapeutic Exercise) Hip (Therapeutic Exercise) AROM (active range of motion);isometric exercises - Hip AROM (Therapeutic Exercise) bilateral;external rotation;internal rotation - Hip Isometrics (Therapeutic Exercise) gluteal sets;10 repetitions -[facility] Name 05/06/201509 Knee (Therapeutic Exercise) Knee (Therapeutic Exercise) isometric exercises;strengthening exercise - Knee Isometrics (Therapeutic Exercise) bilateral;quad sets - Knee Strengthening (Therapeutic Exercise) bilateral;flexion;heel slides;10 repetitions -[facility] Name 05/06/201509 Ankle (Therapeutic Exercise) Ankle (Therapeutic Exercise) AROM (active range of motion) - Ankle AROM (Therapeutic Exercise) bilateral;dorsiflexion;10 repetitions;plantarflexion - User Dyer (r) = Recorded By, (t) = Taken By, (c) = Cosigned By Initials Name Provider Type Elieser Rojas, DEMETRIUS Physical Therapist Goals/Plan No documentation. Clinical Impression [facility] Name 05/06/201509 Pain Additional Documentation Pain Scale: Numbers Pre/Post-Treatment (Group) -[facility] 05/06/201509 Pain Scale: Numbers Pre/Post-Treatment Pretreatment Pain Rating 10/10 - Posttreatment Pain Rating 10/10 -MINE Pain Location - Side Bilateral -MINE Pain Location - Orientation lower -MINE Pain Location back -MINE Pain Intervention(s) Repositioned;Cold applied;Ambulation/increased activity -[facility] Name 05/06/201509 Therapy Assessment/Plan (PT) Rehab Potential (PT) fair, will monitor progress closely - Criteria for Skilled Interventions Met (PT) yes;skilled treatment is necessary - Row Name 05/06/201509 Positioning and Restraints Pre-Treatment Position in bed - Post Treatment Position bed - In Bed notified nsg;supine;call light within reach;encouraged to call for assist;exit alarm on;patient within staff view;with family/caregiver - User Dyer (r) = Recorded By, (t) = Taken By, (c) = Cosigned By Initials Name Provider Type Elieser Rojas, DEMETRIUS Physical Therapist Outcome Measures [facility] Name 05/06/201509 How much help from another person do you currently need... Turning from your back to your side while in flat bed without using bedrails? 2 -MINE Moving from lying on back to sitting on the side of a flat bed without bedrails? 2 -MINE Moving to and from a bed to a chair (including a wheelchair)? 1 -MINE Standing up from a chair using your arms (e.g., wheelchair, bedside chair)? 1 -MINE Climbing 3-5 steps with a railing? 1 -MINE To walk in hospital room? 1 -MINE AM-PAC 6 Clicks Score (PT) 8 -MINE Row Name 05/06/200 Functional Assessment Outcome Measure Options AM-PAC 6 Clicks Basic Mobility (PT) - User Dyer (r) = Recorded By, (t) = Taken By, (c) = Cosigned By Initials Name Provider Type Elieser Rojas, PT Physical Therapist Physical Therapy Education Title: PT OT DECK MECHANIC Therapies (Done) Topic: Physical Therapy (Done) Point: Mobility training (Done) Learning Progress Summary Patient Acceptance, E,D, VU by MINE at 05/06/2020 1510 Comment: Educated on safe sequencing with bed mobility, ambulatory transfers, and gait. Reviewed HEP and spinal precautions. Acceptance, E,D, NR by MINE at 05/03/2020 1300 Comment: Educated on importance of continued mobility in order to improve overall function. Reviewed HEP and spinal precautions. Acceptance, E,D, VU by MINE at 05/02/2020 1028 Comment: Educated on safe sequencing with bed mobility and ambulatory transfers. Reviewed HEP, spinal precautions, and logroll technique Acceptance, E, NR by MN at 04/30/2020 1453 Comment: reviewed benefits of activity Family Acceptance, E,D, VU by MINE at 05/06/2020 1510 Comment: Educated on safe sequencing with bed mobility, ambulatory transfers, and gait. Reviewed HEP and spinal precautions. Point: Home exercise program (Done) Learning Progress Summary Patient Acceptance, E,D, VU by MINE at 05/06/2020 1510 Comment: Educated on safe sequencing with bed mobility, ambulatory transfers, and gait. Reviewed HEP and spinal precautions. Acceptance, E,D, NR by MINE at 05/03/2020 1300 Comment: Educated on importance of continued mobility in order to improve overall function. Reviewed HEP and spinal precautions. Acceptance, E,D, VU by MINE at 05/02/2020 1028 Comment: Educated on safe sequencing with bed mobility and ambulatory transfers. Reviewed HEP, spinal precautions, and logroll technique Acceptance, E, NR by MN at 04/30/2020 1453 Comment: reviewed benefits of activity Family Acceptance, E,D, VU by at 05/06/2020 1510 Comment: Educated on safe sequencing with bed mobility, ambulatory transfers, and gait. Reviewed HEP and spinal precautions. Point: Body mechanics (Done) Learning Progress Summary Patient Acceptance, E,D, VU by at 05/06/2020 1510 Comment: Educated on safe sequencing with bed mobility, ambulatory transfers, and gait. Reviewed HEP and spinal precautions. Acceptance, E,D, NR by at 05/03/2020 1300 Comment: Educated on importance of continued mobility in order to improve overall function. Reviewed HEP and spinal precautions. Acceptance, E,D, VU by at 05/02/2020 1028 Comment: Educated on safe sequencing with bed mobility and ambulatory transfers. Reviewed HEP, spinal precautions, and logroll technique Acceptance, E, NR by MN at 04/30/2020 1453 Comment: reviewed benefits of activity Family Acceptance, E,D, VU by at 05/06/2020 1510 Comment: Educated on safe sequencing with bed mobility, ambulatory transfers, and gait. Reviewed HEP and spinal precautions. Point: Precautions (Done) Learning Progress Summary Patient Acceptance, E,D, VU by at 05/06/2020 1510 Comment: Educated on safe sequencing with bed mobility, ambulatory transfers, and gait. Reviewed HEP and spinal precautions. Acceptance, E,D, NR by at 05/03/2020 1300 Comment: Educated on importance of continued mobility in order to improve overall function. Reviewed HEP and spinal precautions. Acceptance, E,D, VU by at 05/02/2020 1028 Comment: Educated on safe sequencing with bed mobility and ambulatory transfers. Reviewed HEP, spinal precautions, and logroll technique Acceptance, E, NR by MN at 04/30/2020 1453 Comment: reviewed benefits of activity Family Acceptance, E,D, VU by at 05/06/2020 1510 Comment: Educated on safe sequencing with bed mobility, ambulatory transfers, and gait. Reviewed HEP and spinal precautions. User Dyer Initials Effective Dates Name Provider Type Discipline [place] 01/30/15 - Momo Aragon, PT Physical Therapist PT 04/23/19 - Elieser Hawkins, PT Physical Therapist PT PT Recommendation and Plan Plan of Care Reviewed With: patient Progress: improving Outcome Summary: Pt continues to be limited by pain when attempting mobility tasks. Pt ambulated 2 feet using RW and mod Ax2 for AD management and balance. Pt impulsive with gait, requiring max cueing for sequencing. Bed mobility requiring mod-max Ax2 and STS with mod Ax2. Reviewed HEP, logroll technique, and spinal precautions. Will continue to progress strength and mobility as able. Time Calculation: PT Charges Row Name 05/06/20 1510 Time Calculation Start Time 1510 -MINE PT Received On 05/06/20 - PT Goal Re-Cert Due Date 05/11/20 - Time Calculation- PT Total Timed Code Minutes- PT 23 minute(s) -MINE Timed Charges 24037 - PT Therapeutic Exercise Minutes 10 -MINE 63889 - Gait Training Minutes 2 -MINE 79563 - PT Therapeutic Activity Minutes 11 -MINE User Dyer (r) = Recorded By, (t) = Taken By, (c) = Cosigned By Initials Name Provider Type Elieser Rojas, PT Physical Therapist Therapy Charges for Today Code Description Service Date Service Provider Modifiers Qty 39494555388 HC PT THER PROC EA 15 MIN 05/06/2020 Elieser Hawkins, PT GP 1 51686225258 HC PT THERAPEUTIC ACT EA 15 MIN 05/06/2020 Elieser Hawkins, PT GP 1 PT G-Codes Outcome Measure Options: AM-PAC 6 Clicks Basic Mobility (PT) AM-PAC 6 Clicks Score (PT): 8 Elieser Hawkins PT 05/06/2020 * Therapy Treatment Note - Elieser Hawkins PT - 05/03/2020 1:00 PM EDT Patient Name: Leoncio Rollins : 1975 Today's Date: 05/03/2020 Admit Date: 04/28/2020 Visit Dx: ICD-10-CM ICD-9-CM 1. Acute right-sided low back pain with right-sided sciatica M54.41 724.2 724.3 2. Discitis of lumbar region M46.46 722.93 3. Acute renal failure on dialysis (CMS/HCC) N17.9 584.9 Z99.2 V45.11 4. Bandemia D72.825 288.66 5. Abscess in epidural space of lumbar spine G06.1 324.1 6. Gastrointestinal hemorrhage with melena K92.1 578.1 Patient Active Problem List Diagnosis ??? Sepsis (CMS/HCC) ??? KIM (nonalcoholic steatohepatitis) ??? History of liver transplant (CMS/HCC) ??? Immunosuppression (CMS/HCC) ??? Type 2 diabetes mellitus (CMS/HCC) ??? Altered mental state ??? ESRD (end stage renal disease) (CMS/HCC) ??? Hyponatremia ??? Discitis ??? Epidural abscess ??? Leukocytosis Past Medical History: Diagnosis Date ??? Diabetes mellitus (CMS/HCC) ??? Dialysis patient (CMS/HCC) ??? Hemorrhage THROAT VARICIES ??? Liver transplanted (CMS/HCC) Past Surgical History: Procedure Laterality Date ??? CHOLECYSTECTOMY ??? LUMBAR LAMINECTOMY DISCECTOMY DECOMPRESSION N/A 04/29/2020 Procedure: LUMBAR LAMINECTOMY DISCECTOMY DECOMPRESSION POSTERIOR L4-5; Surgeon: Yinka Garnica MD; Location: [facility]; Service: Neurosurgery; Laterality: N/A; General Information Row Name 05/03/20 1300 Physical Therapy Time and Intention Document Type therapy note (daily note) -MINE Mode of Treatment individual therapy;physical therapy - Row Name 05/03/20 1300 General Information Patient Profile Reviewed yes -MINE Existing Precautions/Restrictions fall;spinal -MINE Row Name 05/03/20 1300 Cognition Orientation Status (Cognition) oriented x 3 -MINE Row Name 05/03/20 1300 Safety Issues, Functional Mobility Safety Issues Affecting Function (Mobility) insight into deficits/self- awareness;safety precautionsfollow-through/compliance;sequencing abilities;awareness of need for assistance;safety precaution awareness -MINE Impairments Affecting Function (Mobility) balance;motor control;postural/trunk control;pain;strength;endurance/activity tolerance -MINE Comment, Safety Issues/Impairments (Mobility) Pt in too much pain to perform ambulatory tasks this session -MINE User Dyer (r) = Recorded By, (t) = Taken By, (c) = Cosigned By Initials Name Provider Type MINE Elieser Hawkins, PT Physical Therapist Mobility Row Name 05/03/20 1300 Bed Mobility Comment (Bed Mobility) Pt refusing mobility due to 05/23 back pain -[facility] Name 05/03/20 1300 Transfers Comment (Transfers) Pt refusing mobility due to 05/23 back pain -[facility] Name 05/03/20 1300 Gait/Stairs (Locomotion) Comment (Gait/Stairs) Pt refusing mobility due to 05/23 back pain - User Dyer (r) = Recorded By, (t) = Taken By, (c) = Cosigned By Initials Name Provider Type Elieser Rojas PT Physical Therapist Obj/Interventions Row Name 05/03/20 1300 Motor Skills Therapeutic Exercise hip;knee;ankle ab sets -[facility] Name 05/03/20 1300 Hip (Therapeutic Exercise) Hip (Therapeutic Exercise) isometric exercises - Hip AROM (Therapeutic Exercise) bilateral;external rotation;internal rotation;10 repetitions - Hip Isometrics (Therapeutic Exercise) gluteal sets;10 repetitions -[facility] Name 05/03/20 1300 Knee (Therapeutic Exercise) Knee (Therapeutic Exercise) AROM (active range of motion);isometric exercises - Knee AROM (Therapeutic Exercise) bilateral;heel slides;SLR (straight leg raise);10 repetitions - Knee Isometrics (Therapeutic Exercise) quad sets;10 repetitions - Row Name 05/03/20 1300 Ankle (Therapeutic Exercise) Ankle (Therapeutic Exercise) AROM (active range of motion) - Ankle AROM (Therapeutic Exercise) bilateral;dorsiflexion;plantarflexion;10 repetitions - User Dyer (r) = Recorded By, (t) = Taken By, (c) = Cosigned By Initials Name Provider Type Elieser Rojas PT Physical Therapist Goals/Plan No documentation. Clinical Impression [facility] Name 05/03/20 1300 Pain Additional Documentation Pain Scale: Numbers Pre/Post-Treatment (Group) -[facility] 05/03/20 1300 Pain Scale: Numbers Pre/Post-Treatment Pretreatment Pain Rating 10/10 - Posttreatment Pain Rating 10/10 - Pain Location - Side Bilateral - Pain Location - Orientation lower - Pain Location back - Pre/Posttreatment Pain Comment Pt agreeable to bed level exercise - Pain Intervention(s) Repositioned -[facility] Name 05/03/20 1300 Therapy Assessment/Plan (PT) Rehab Potential (PT) fair, will monitor progress closely - Criteria for Skilled Interventions Met (PT) yes;skilled treatment is necessary -MINE Row Name 05/03/20 1300 Positioning and Restraints Pre-Treatment Position in bed -MINE Post Treatment Position bed -MINE In Bed notified nsg;supine;call light within reach;encouraged to call for assist;exit alarm on;patient within staff view;with family/caregiver - User Dyer (r) = Recorded By, (t) = Taken By, (c) = Cosigned By Initials Name Provider Type Elieser Rojas, PT Physical Therapist Outcome Measures Row Name 05/03/20 1300 How much help from another person do you currently need... Turning from your back to your side while in flat bed without using bedrails? 2 -MINE Moving from lying on back to sitting on the side of a flat bed without bedrails? 2 -MINE Moving to and from a bed to a chair (including a wheelchair)? 1 -MINE Standing up from a chair using your arms (e.g., wheelchair, bedside chair)? 1 -MINE Climbing 3-5 steps with a railing? 1 -MINE To walk in hospital room? 1 -MINE AM-PAC 6 Clicks Score (PT) 8 - Row Name 05/03/20 1300 Functional Assessment Outcome Measure Options AM-PAC 6 Clicks Basic Mobility (PT) - User Dyer (r) = Recorded By, (t) = Taken By, (c) = Cosigned By Initials Name Provider Type Elieser Rojas, PT Physical Therapist Physical Therapy Education Title: PT OT DECK MECHANIC Therapies (In Progress) Topic: Physical Therapy (In Progress) Point: Mobility training (In Progress) Learning Progress Summary Patient Acceptance, E,D, NR by MINE at 05/03/2020 1300 Comment: Educated on importance of continued mobility in order to improve overall function. Reviewed HEP and spinal precautions. Acceptance, E,D, VU by MINE at 05/02/2020 1028 Comment: Educated on safe sequencing with bed mobility and ambulatory transfers. Reviewed HEP, spinal precautions, and logroll technique Acceptance, E, NR by MN at 04/30/2020 1453 Comment: reviewed benefits of activity Point: Home exercise program (In Progress) Learning Progress Summary Patient Acceptance, E,D, NR by MINE at 05/03/2020 1300 Comment: Educated on importance of continued mobility in order to improve overall function. Reviewed HEP and spinal precautions. Acceptance, E,D, VU by MINE at 05/02/2020 1028 Comment: Educated on safe sequencing with bed mobility and ambulatory transfers. Reviewed HEP, spinal precautions, and logroll technique Acceptance, E, NR by MN at 04/30/2020 1453 Comment: reviewed benefits of activity Point: Body mechanics (In Progress) Learning Progress Summary Patient Acceptance, E,D, NR by at 05/03/2020 1300 Comment: Educated on importance of continued mobility in order to improve overall function. Reviewed HEP and spinal precautions. Acceptance, E,D, VU by at 05/02/2020 1028 Comment: Educated on safe sequencing with bed mobility and ambulatory transfers. Reviewed HEP, spinal precautions, and logroll technique Acceptance, E, NR by MN at 04/30/2020 1453 Comment: reviewed benefits of activity Point: Precautions (In Progress) Learning Progress Summary Patient Acceptance, E,D, NR by at 05/03/2020 1300 Comment: Educated on importance of continued mobility in order to improve overall function. Reviewed HEP and spinal precautions. Acceptance, E,D, VU by at 05/02/2020 1028 Comment: Educated on safe sequencing with bed mobility and ambulatory transfers. Reviewed HEP, spinal precautions, and logroll technique Acceptance, E, NR by MN at 04/30/2020 1453 Comment: reviewed benefits of activity User Dyer Initials Effective Dates Name Provider Type Discipline [place] 01/30/15 - Momo Aragon, PT Physical Therapist PT 04/23/19 - Elieser Hawkins, DEMETRIUS Physical Therapist PT PT Recommendation and Plan Plan of Care Reviewed With: patient Progress: no change Outcome Summary: Pt refusing OOB mobility this session due to severe low back pain, rated 10/10, and has been this way all morning. Pt educated on importance of continued mobility in order to improvefunction. Pt agreeable to exercise. Reviewed HEP and spinal precautions. Will continue to progress strength and mobility as able. Time Calculation: PT Charges Row Name 05/03/20 1330 Time Calculation Start Time 1300 - PT Received On 05/03/20 - PT Goal Re-Cert Due Date 05/11/20 - Time Calculation- PT Total Timed Code Minutes- PT 10 minute(s) - Timed Charges 44478 - PT Therapeutic Exercise Minutes 10 - User Dyer (r) = Recorded By, (t) = Taken By, (c) = Cosigned By Initials Name Provider Type MINE Elieser Hawkins, PT Physical Therapist Therapy Charges for Today Code Description Service Date Service Provider Modifiers Qty 85875232498 HC PT THER PROC EA 15 MIN 05/02/2020 Elieser Hawkins, PT GP 1 62542143093 HC PT THERAPEUTIC ACT EA 15 MIN 05/02/2020 Elieser Hawkins, PT GP 1 06547480249 HC PT THER PROC EA 15 MIN 05/03/2020 Elieser Hawkins, PT GP 1 PT G-Codes Outcome Measure Options: AM-PAC 6 Clicks Basic Mobility (PT) AM-PAC 6 Clicks Score (PT): 8 Elieser Hawkins PT 05/03/2020 * Therapy Treatment Note - Elieser Hawkins PT - 05/02/2020 10:28 AM EDT Patient Name: Leoncio Rollins : 1975 Today's Date: 05/02/2020 Admit Date: 04/28/2020 Visit Dx: ICD-10-CM ICD-9-CM 1. Acute right-sided low back pain with right-sided sciatica M54.41 724.2 724.3 2. Discitis of lumbar region M46.46 722.93 3. Acute renal failure on dialysis (CMS/HCC) N17.9 584.9 Z99.2 V45.11 4. Bandemia D72.825 288.66 5. Abscess in epidural space of lumbar spine G06.1 324.1 Patient Active Problem List Diagnosis ??? Sepsis (CMS/HCC) ??? KIM (nonalcoholic steatohepatitis) ??? History of liver transplant (CMS/HCC) ??? Immunosuppression (CMS/HCC) ??? Type 2 diabetes mellitus (CMS/HCC) ??? Altered mental state ??? ESRD (end stage renal disease) (CMS/HCC) ??? Hyponatremia ??? Discitis ??? Epidural abscess ??? Leukocytosis Past Medical History: Diagnosis Date ??? Diabetes mellitus (CMS/HCC) ??? Dialysis patient (CMS/HCC) ??? Hemorrhage THROAT VARICIES ??? Liver transplanted (CMS/HCC) Past Surgical History: Procedure Laterality Date ??? CHOLECYSTECTOMY ??? LUMBAR LAMINECTOMY DISCECTOMY DECOMPRESSION N/A 04/29/2020 Procedure: LUMBAR LAMINECTOMY DISCECTOMY DECOMPRESSION POSTERIOR L4-5; Surgeon: Yinka Garnica MD; Location: [facility]; Service: Neurosurgery; Laterality: N/A; General Information Row Name 05/02/20 1028 Physical Therapy Time and Intention Document Type therapy note (daily note) - Mode of Treatment individual therapy;physical therapy - Row Name 05/02/20 1028 General Information Patient Profile Reviewed yes - Existing Precautions/Restrictions fall;spinal -MINE Row Name 05/02/20 1028 Cognition Orientation Status (Cognition) oriented x 3 -MINE Row Name 05/02/20 1028 Safety Issues, Functional Mobility Safety Issues Affecting Function (Mobility) sequencing abilities;safety precaution awareness;safetyprecautions follow-through/compliance;problem-solving;insight into deficits/self-awareness - Impairments Affecting Function (Mobility) balance;motor control;postural/trunk control;pain;strength;endurance/activity tolerance - User Dyer (r) = Recorded By, (t) = Taken By, (c) = Cosigned By Initials Name Provider Type MINE Elieser Hawkins, PT Physical Therapist Mobility Row Name 05/02/20 1028 Bed Mobility Bed Mobility rolling left;sidelying-sit;scooting/bridging - Rolling Left Henry (Bed Mobility) verbal cues;moderate assist (50% patient effort) - Scooting/Bridging Henry (Bed Mobility) verbal cues;moderate assist (50% patient effort) - Sidelying-Sit Henry (Bed Mobility) verbal cues;maximum assist (25% patient effort);2 person assist - Assistive Device (Bed Mobility) bed rails;draw sheet;head of bed elevated - Comment (Bed Mobility) Max A for LE management off of EOB and trunk control into sitting; verbal cues for use of logroll technique with bed mobility - Row Name 05/02/20 1028 Transfers Comment (Transfers) Verbal cues for safe hand placement during standing/sitting and maintaining spinal precautions; stand-pivot transfer performed from bed to BSC and BSC to chair - Row Name 05/02/20 1028 Bed-Chair Transfer Bed-Chair Henry (Transfers) verbal cues;moderate assist (50% patient effort);2 person assist- Assistive Device (Bed-Chair Transfers) walker, front-wheeled -[facility] Name 05/02/20 1028 Sit-Stand Transfer Sit-Stand Henry (Transfers) verbal cues;moderate assist (50% patient effort);2 person assist- Assistive Device (Sit-Stand Transfers) walker, front-wheeled -[facility] Name 05/02/20 1028 Gait/Stairs (Locomotion) Henry Level (Gait) unable to assess - Comment (Gait/Stairs) Pt unable to safely take steps for gait training due to his pain - User Dyer (r) = Recorded By, (t) = Taken By, (c) = Cosigned By Initials Name Provider Type Elieser Rojas, PT Physical Therapist Obj/Interventions [facility] Name 05/02/20 1028 Motor Skills Therapeutic Exercise hip;knee;ankle ab sets -[facility] 05/02/20 1028 Hip (Therapeutic Exercise) Hip (Therapeutic Exercise) isometric exercises - Hip Isometrics (Therapeutic Exercise) bilateral;external rotation;internal rotation;gluteal sets;10repetitions -[facility] 05/02/20 1028 Knee (Therapeutic Exercise) Knee (Therapeutic Exercise) AROM (active range of motion);isometric exercises - Knee AROM (Therapeutic Exercise) heel slides;10 repetitions;bilateral - Knee Isometrics (Therapeutic Exercise) quad sets;10 repetitions -[facility] 05/02/20 1028 Ankle (Therapeutic Exercise) Ankle (Therapeutic Exercise) AROM (active range of motion) - Ankle Isometrics (Therapeutic Exercise) bilateral;dorsiflexion;plantarflexion;10 repetitions - User Dyer (r) = Recorded By, (t) = Taken By, (c) = Cosigned By Initials Name Provider Type Elieser Rojas, PT Physical Therapist Goals/Plan No documentation. Clinical Impression [facility] Name 05/02/20 1028 Pain Additional Documentation Pain Scale: Numbers Pre/Post-Treatment (Group) -[facility] 05/02/20 1028 Pain Scale: Numbers Pre/Post-Treatment Pretreatment Pain Rating 8/10 - Posttreatment Pain Rating 10/10 - Pain Location - Side Bilateral - Pain Location - Orientation lower - Pain Location back - Pre/Posttreatment Pain Comment RN present and aware - Pain Intervention(s) Repositioned;Ambulation/increased activity -[facility] Name 05/02/20 1028 Therapy Assessment/Plan (PT) Rehab Potential (PT) good, to achieve stated therapy goals - Criteria for Skilled Interventions Met (PT) yes;skilled treatment is necessary - Row Name 05/02/20 1028 Positioning and Restraints Pre-Treatment Position in bed - Post Treatment Position chair -MINE In Chair notified nsg;reclined;call light within reach;encouraged to call for assist;exit alarm on;with family/caregiver;on mechanical lift sling;legs elevated;waffle cushion - User Dyer (r) = Recorded By, (t) = Taken By, (c) = Cosigned By Initials Name Provider Type Elieser Rojas, PT Physical Therapist Outcome Measures Row Name 05/02/20 1028 How much help from another person do you currently need... Turning from your back to your side while in flat bed without using bedrails? 2 -MINE Moving from lying on back to sitting on the side of a flat bed without bedrails? 2 -MINE Moving to and from a bed to a chair (including a wheelchair)? 1 -MINE Standing up from a chair using your arms (e.g., wheelchair, bedside chair)? 1 -MINE Climbing 3-5 steps with a railing? 1 -MINE To walk in hospital room? 1 -MINE AM-PAC 6 Clicks Score (PT) 8 - Row Name 05/02/20 1028 Functional Assessment Outcome Measure Options AM-PAC 6 Clicks Basic Mobility (PT) - User Dyer (r) = Recorded By, (t) = Taken By, (c) = Cosigned By Initials Name Provider Type Elieser Rojas, PT Physical Therapist Physical Therapy Education Title: PT OT DECK MECHANIC Therapies (Done) Topic: Physical Therapy (Done) Point: Mobility training (Done) Learning Progress Summary Patient Acceptance, E,D, VU by at 05/02/2020 1028 Comment: Educated on safe sequencing with bed mobility and ambulatory transfers. Reviewed HEP, spinal precautions, and logroll technique Acceptance, E, NR by MN at 04/30/2020 1453 Comment: reviewed benefits of activity Point: Home exercise program (Done) Learning Progress Summary Patient Acceptance, E,D, VU by at 05/02/2020 1028 Comment: Educated on safe sequencing with bed mobility and ambulatory transfers. Reviewed HEP, spinal precautions, and logroll technique Acceptance, E, NR by MN at 04/30/2020 1453 Comment: reviewed benefits of activity Point: Body mechanics (Done) Learning Progress Summary Patient Acceptance, E,D, VU by at 05/02/2020 1028 Comment: Educated on safe sequencing with bed mobility and ambulatory transfers. Reviewed HEP, spinal precautions, and logroll technique Acceptance, E, NR by MN at 04/30/2020 1453 Comment: reviewed benefits of activity Point: Precautions (Done) Learning Progress Summary Patient Acceptance, E,D, VU by at 05/02/2020 1028 Comment: Educated on safe sequencing with bed mobility and ambulatory transfers. Reviewed HEP, spinal precautions, and logroll technique Acceptance, E, NR by MN at 04/30/2020 1453 Comment: reviewed benefits of activity User Dyer Initials Effective Dates Name Provider Type Discipline [place] 01/30/15 - Momo Aragon, PT Physical Therapist PT 04/23/19 - Elieser Hawkins PT Physical Therapist PT PT Recommendation and Plan Plan of Care Reviewed With: patient Progress: improving Outcome Summary: Pt requiring mod-max Ax2 for bed mobility. STS, and stand-pivot transfers from bed-BSC and BSC-chair performed with mod Ax2 and RW. Pt unable to take steps for gait as he was in 05/23 pain, RN present and aware. Reviewed HEP, spinal precautions, and logroll technique. Will continueto progress strength and mobility as able. Time Calculation: PT Charges Row Name 05/02/20 1028 Time Calculation Start Time 1028 - PT Received On 05/02/20 - PT Goal Re-Cert Due Date 05/11/20 - Time Calculation- PT Total Timed Code Minutes- PT 23 minute(s) - Timed Charges 34475 - PT Therapeutic Exercise Minutes 10 - 51838 - PT Therapeutic Activity Minutes 13 -MINE User Dyer (r) = Recorded By, (t) = Taken By, (c) = Cosigned By Initials Name Provider Type Elieser Hawkins, PT Physical Therapist Therapy Charges for Today Code Description Service Date Service Provider Modifiers Qty 57296597778 HC PT THER PROC EA 15 MIN 05/02/2020 Elieser Hawkins, PT GP 1 65553148706 HC PT THERAPEUTIC ACT EA 15 MIN 05/02/2020 Elieser Hawkins, PT GP 1 PT G-Codes Outcome Measure Options: AM-PAC 6 Clicks Basic Mobility (PT) AM-PAC 6 Clicks Score (PT): 8 Elieser Hawkins, PT 05/02/2020 * Therapy Evaluation - Momo Aragon, PT - 04/30/2020 10:35 AM EDT Patient Name: Leoncio Rollins : 1975 Today's Date: 04/30/2020 Admit Date: 04/28/2020 Visit Dx: ICD-10-CM ICD-9-CM 1. Acute right-sided low back pain with right-sided sciatica M54.41 724.2 724.3 2. Discitis of lumbar region M46.46 722.93 3. Acute renal failure on dialysis (CMS/HCC) N17.9 584.9 Z99.2 V45.11 4. Bandemia D72.825 288.66 5. Abscess in epidural space of lumbar spine G06.1 324.1 Patient Active Problem List Diagnosis ??? Sepsis (CMS/HCC) ??? KIM (nonalcoholic steatohepatitis) ??? History of liver transplant (CMS/HCC) ??? Immunosuppression (CMS/HCC) ??? Type 2 diabetes mellitus (CMS/HCC) ??? Altered mental state ??? ESRD (end stage renal disease) (CMS/HCC) ??? Hyponatremia ??? Discitis ??? Epidural abscess ??? Leukocytosis Past Medical History: Diagnosis Date ??? Diabetes mellitus (CMS/HCC) ??? Dialysis patient (CMS/HCC) ??? Hemorrhage THROAT VARICIES ??? Liver transplanted (CMS/HCC) Past Surgical History: Procedure Laterality Date ??? CHOLECYSTECTOMY ??? LUMBAR LAMINECTOMY DISCECTOMY DECOMPRESSION N/A 04/29/2020 Procedure: LUMBAR LAMINECTOMY DISCECTOMY DECOMPRESSION POSTERIOR L4-5; Surgeon: Yinka Garnica MD; Location: [facility]; Service: Neurosurgery; Laterality: N/A; General Information Row Name 04/30/20 1436 Physical Therapy Time and Intention Document Type evaluation -SC Mode of Treatment physical therapy -SC Row Name 04/30/20 1436 General Information Patient Profile Reviewed yes -SC Existing Precautions/Restrictions fall;spinal -SC Row Name 04/30/20 1436 Living Environment Lives With spouse;other (see comments) unknown -MN Row Name 04/30/20 1436 Cognition Orientation Status (Cognition) oriented x 3 -[facility] Name 04/30/20 1436 Safety Issues, Functional Mobility Safety Issues Affecting Function (Mobility) judgment;problem- solving;impulsivity;sequencing abilities;insight into deficits/self-awareness -MN Impairments Affecting Function (Mobility) balance;motor control;postural/trunk control;pain;strength;endurance/activity tolerance -MN Comment, Safety Issues/Impairments (Mobility) very anxious -MN User Dyer (r) = Recorded By, (t) = Taken By, (c) = Cosigned By Initials Name Provider Type MN Momo Aragon PT Physical Therapist Mobility Row Name 04/30/20 1438 Bed Mobility Bed Mobility scooting/bridging;supine-sit;sit-supine;rolling right;rolling left -MN Rolling Left Henry (Bed Mobility) verbal cues;dependent (less than 25% patient effort) -MN Rolling Right Henry (Bed Mobility) verbal cues;moderate assist (50% patient effort) -MN Scooting/Bridging Henry (Bed Mobility) verbal cues;moderate assist (50% patient effort) -MN Supine-Sit Henry (Bed Mobility) verbal cues;2 person assist;maximum assist (25% patient effort) -MN Sit-Supine Henry (Bed Mobility) 2 person assist;maximum assist (25% patient effort) -MN Assistive Device (Bed Mobility) bed rails;draw sheet;head of bed elevated -MN Comment (Bed Mobility) up to edge of bed for assessment. Required repeted cues for rolling and sequencing . Patient required help with trunk and legs. On sitting he demonstrated increased anxiety andcrying begging to bed layed down. Was able to calm down for a few minutes they layed back in to bed-MN Row Name 04/30/20 1438 Transfers Comment (Transfers) refused standing or out of bed -[facility] Name 04/30/20 1438 Gait/Stairs (Locomotion) Comment (Gait/Stairs) not assessed -MN User Dyer (r) = Recorded By, (t) = Taken By, (c) = Cosigned By Initials Name Provider Type MN Momo Aragon PT Physical Therapist Obj/Interventions Row Name 04/30/20 1441 Range of Motion Comprehensive General Range of Motion bilateral upper extremity ROM WNL;bilateral lower extremity ROM WNL -MN Comment, General Range of Motion joints wfl -[facility] Name 04/30/20 1441 Strength Comprehensive (MMT) General Manual Muscle Testing (MMT) Assessment lower extremity strength deficits identified -MN Comment, General Manual Muscle Testing (MMT) Assessment B UE: grossly 4+/5 R LE: quads 3+/5, tib ant 4/5, hip flexion 3/5 . L LE: quads 3/5, tib ant 3+/5 hip flex 3/5 -[facility] Name 04/30/20 1441 Motor Skills Therapeutic Exercise ankle;knee;hip -[facility] Name 04/30/20 1441 Hip (Therapeutic Exercise) Hip (Therapeutic Exercise) isometric exercises -MN Hip Isometrics (Therapeutic Exercise) 10 repetitions;gluteal sets -[facility] Name 04/30/20 1441 Knee (Therapeutic Exercise) Knee (Therapeutic Exercise) isometric exercises -MN Knee Isometrics (Therapeutic Exercise) quad sets -[facility] Name 04/30/20 1441 Ankle (Therapeutic Exercise) Ankle (Therapeutic Exercise) isometric exercises -MN Ankle Isometrics (Therapeutic Exercise) bilateral;dorsiflexion;plantarflexion -[facility] Name 04/30/20 1441 Balance Balance Assessment sitting static balance -MN Static Sitting Balance mild impairment leans on left side more. -MN Balance Interventions sitting -MN Comment, Balance working on midline sitting with cues to put equal wt in sitting -[facility] Name 04/30/20 1441 Sensory Assessment (Somatosensory) Sensory Assessment (Somatosensory) LE sensation intact -[facility] Name 04/30/20 1441 Lower Extremity (Manual Muscle Testing) Lower Extremity: Manual Muscle Testing (MMT) left knee strength deficit;right knee strength deficit;right hip strength deficit;left hip strength deficit -MN User Dyer (r) = Recorded By, (t) = Taken By, (c) = Cosigned By Initials Name Provider Type [place] Momo Aragon, PT Physical Therapist Goals/Plan [facility] [facility] Bed Mobility Goal 1 (PT) Activity/Assistive Device (Bed Mobility Goal 1, PT) scooting;sit to supine -MN Henry Level/Cues Needed (Bed Mobility Goal 1, PT) modified independence -MN Time Frame (Bed Mobility Goal 1, PT) half-way goal (LTG);10 days -[facility] Name 04/30/20 144 Transfer Goal 1 (PT) Activity/Assistive Device (Transfer Goal 1, PT) lej-ne-kjjvl/kgqeh-mx-psj;tpl-uq-olilr/lydmc-pd-hnx;walker, rolling -SC Henry Level/Cues Needed (Transfer Goal 1, PT) minimum assist (75% or more patient effort) -MN Time Frame (Transfer Goal 1, PT) long term care phlebotomist goal (LTG);10 days -MN Row Name 04/30/20 1449 Gait Training Goal 1 (PT) Activity/Assistive Device (Gait Training Goal 1, PT) gait (walking locomotion);walker, rolling -SC Henry Level (Gait Training Goal 1, PT) minimum assist (75% or more patient effort) -MN Distance (Gait Training Goal 1, PT) 150 -MN Time Frame (Gait Training Goal 1, PT) half-way goal (LTG);10 days -MN Row Name 04/30/20 1449 Patient Education Goal (PT) Activity (Patient Education Goal, PT) back precautions -MN Henry/Cues/Accuracy (Memory Goal 2, PT) demonstrates adequately;verbalizes understanding -MN Time Frame (Patient Education Goal, PT) long term care phlebotomist goal (LTG);10 days -MN User Dyer (r) = Recorded By, (t) = Taken By, (c) = Cosigned By Initials Name Provider Type MN Momo Aragon, PT Physical Therapist Clinical Impression Row Name 04/30/20 1034 Plan of Care Review Progress no change -MN Outcome Summary Patient presents with high anxiety about mobilizing. He requires max assist for bedmobility . HE was unable to tolerate sitting for very long and refused to stand or attempt walking.Overall his legs are weak, however he is mostly limited by pain and anxiety.Recommend Acute rehab at discharge -MN Row Name 04/30/20 1035 Therapy Assessment/Plan (PT) Patient/Family Therapy Goals Statement (PT) decrease pain -MN Rehab Potential (PT) good, to achieve stated therapy goals -MN Criteria for Skilled Interventions Met (PT) yes;skilled treatment is necessary -MN Row Name 04/30/20 1035 Vital Signs Intratreatment Heart Rate (beats/min) 135 -MN Posttreatment Heart Rate (beats/min) 100 -MN Row Name 04/30/20 1035 Positioning and Restraints Pre-Treatment Position in bed -MN Post Treatment Position bed -SC In Bed notified nsg;supine;call light within reach;encouraged to call for assist -MN User Dyer (r) = Recorded By, (t) = Taken By, (c) = Cosigned By Initials Name Provider Type MN Momo Aragon PT Physical Therapist Outcome Measures Row Name 04/30/20 145 How much help from another person do you currently need... Turning from your back to your side while in flat bed without using bedrails? 2 -SC Moving from lying on back to sitting on the side of a flat bed without bedrails? 2 -SC Moving to and from a bed to a chair (including a wheelchair)? 1 -SC Standing up from a chair using your arms (e.g., wheelchair, bedside chair)? 1 -SC Climbing 3-5 steps with a railing? 1 -SC To walk in hospital room? 1 -MN AM-PAC 6 Clicks Score (PT) 8 -MN Row Name 04/30/20 145 Functional Assessment Outcome Measure Options AM-PAC 6 Clicks Basic Mobility (PT) -MN User Dyer (r) = Recorded By, (t) = Taken By, (c) = Cosigned By Initials Name Provider Type MN Momo Aragon PT Physical Therapist Physical Therapy Education Title: PT OT DECK MECHANIC Therapies (In Progress) Topic: Physical Therapy (In Progress) Point: Mobility training (In Progress) Learning Progress Summary Patient Acceptance, E, NR by MN at 04/30/2020 1453 Comment: reviewed benefits of activity Point: Home exercise program (In Progress) Learning Progress Summary Patient Acceptance, E, NR by MN at 04/30/2020 1453 Comment: reviewed benefits of activity Point: Body mechanics (In Progress) Learning Progress Summary Patient Acceptance, E, NR by MN at 04/30/2020 1453 Comment: reviewed benefits of activity Point: Precautions (In Progress) Learning Progress Summary Patient Acceptance, E, NR by MN at 04/30/2020 1453 Comment: reviewed benefits of activity User Dyer Initials Effective Dates Name Provider Type [facility] 01/30/15 - Momo Aragon PT Physical Therapist PT PT Recommendation and Plan Planned Therapy Interventions (PT): bed mobility training, gait training, home exercise program, patient/family education, transfer training, strengthening Progress: no change Outcome Summary: Patient presents with high anxiety about mobilizing. He requires max assist for bed mobility . HE was unable to tolerate sitting for very long and refused to stand or attempt walking. Overall his legs are weak, however he is mostly limited by pain and anxiety.Recommend Acute rehab at discharge Time Calculation: PT Charges Row Name 04/30/20 1035 Time Calculation Start Time 1035 -MN PT Received On 04/30/20 -MN PT Goal Re-Cert Due Date 05/11/20 -MN User Dyer (r) = Recorded By, (t) = Taken By, (c) = Cosigned By Initials Name Provider Type MN Momo Aragon PT Physical Therapist Therapy Charges for Today Code Description Service Date Service Provider Modifiers Qty 28152392286 HC PT EVAL MOD COMPLEXITY 4 04/30/2020 Momo Aragon, PT GP 1 64205736112 HC PT THER SUPP EA 15 MIN 04/30/2020 Momo Aragon PT GP 2 PT G-Codes Outcome Measure Options: AM-PAC 6 Clicks Basic Mobility (PT) AM-PAC 6 Clicks Score (PT): 8 Momo Aragon PT 04/30/2020 * Significant Note - Eleanor Malhotra MD - 04/28/2020 11:40 PM EDT Called to patient room due to patient wants to leave AMA. He is mildly confused and forgetful, but anxious. I reminded him about his acute infection and antibiotic treatment. He is complaining of pain and cannot rest. I will order a 1X dilaudid to see if we can get him some rest. documented in this encounter Plan of Treatment Scheduled Referrals Name Type Priority Associated Diagnoses Orde r Schedule Ambulatory Referral to Home Health Outpatient Referral Routine Sepsis with acute organ dysfunction, due to unspecified organism, unspecified type, unspecified whether septic shock present Ordered: 05/13/2020 documented as of this encounter Procedures Procedure Name Priority Date/Time Associated Diagnosis Comments POCT GLUCOSE FINGERSTICK Routine 020 11:28 AM EDT POCT GLUCOSE FINGERSTICK Routine 020 8:50 AM EDT C-REACTIVE PROTEIN Routine 05/13/2020 8:31 AM EDT POCT GLUCOSE FINGERSTICK Routine 020 7:30 AM EDT POCT GLUCOSE FINGERSTICK Routine 020 8:17 PM EDT POCT GLUCOSE FINGERSTICK Routine 020 4:16 PM EDT HEMODIALYSIS INPATIENT Routine 0 4:07 PM EDT POCT GLUCOSE FINGERSTICK Routine 11:15 AM EDT POCT GLUCOSE FINGERSTICK Routine 020 8:06 AM EDT POCT GLUCOSE FINGERSTICK Routine 020 8:19 PM EDT POCT GLUCOSE FINGERSTICK Routine 020 4:49 PM EDT POCT GLUCOSE FINGERSTICK Routine 020 7:28 AM EDT CBC WITH AUTO DIFFERENTIAL Routine 05/11 7:00 AM EDT CBC AND DIFFERENTIAL Routine 05/11/2020 7:00 AM EDT C-REACTIVE PROTEIN Routine 05/11/2020 7:00 AM EDT VANCOMYCIN, RANDOM Routine 05/11/2020 7:00 AM EDT COMPREHENSIVE METABOLIC PANEL Routine 7:00 AM EDT POCT GLUCOSE FINGERSTICK Routine 020 9:00 PM EDT POCT GLUCOSE FINGERSTICK Routine 020 4:11 PM EDT POCT GLUCOSE FINGERSTICK Routine 020 11:30 AM EDT HEMODIALYSIS INPATIENT Routine 0 9:07 AM EDT POCT GLUCOSE FINGERSTICK Routine 020 7:32 AM EDT POCT GLUCOSE FINGERSTICK Routine 020 8:15 PM EDT POCT GLUCOSE FINGERSTICK Routine 4:01 PM EDT POCT GLUCOSE FINGERSTICK Routine 11:54 AM EDT POCT GLUCOSE FINGERSTICK Routine 7:27 AM EDT POCT GLUCOSE FINGERSTICK Routine 020 8:02 PM EDT POCT GLUCOSE FINGERSTICK Routine 4:23 PM EDT CBC WITH AUTO DIFFERENTIAL Routine 05/08 8:55 AM EDT MANUAL DIFFERENTIAL STAT 05/08/2020 8:55 AM EDT CBC AND DIFFERENTIAL Routine 05/08/2020 8:55 AM EDT C-REACTIVE PROTEIN Routine 05/08/2020 8:55 AM EDT CK Routine 05/08/2020 8:55 AM EDT VANCOMYCIN, RANDOM Routine 05/08/2020 8:55 AM EDT POCT GLUCOSE FINGERSTICK Routine 020 7:22 AM EDT POCT GLUCOSE FINGERSTICK Routine 020 8:03 PM EDT POCT GLUCOSE FINGERSTICK Routine 020 4:08 PM EDT HEMODIALYSIS INPATIENT Routine 0 2:37 PM EDT POCT GLUCOSE FINGERSTICK Routine 020 11:07 AM EDT CYCLOSPORINE LEVEL Routine 05/07/2020 7:38 AM EDT PROTIME-INR Routine 05/07/2020 7:38 AM EDT CBC (NO DIFF) Routine 05/07/2020 7:38 AM EDT POCT GLUCOSE FINGERSTICK Routine 020 7:38 AM EDT AMMONIA Routine 05/07/2020 7:38 AM EDT COMPREHENSIVE METABOLIC PANEL Routine 7:38 AM EDT POCT GLUCOSE FINGERSTICK Routine 9:52 PM EDT POCT GLUCOSE FINGERSTICK Routine 020 4:04 PM EDT POCT GLUCOSE FINGERSTICK Routine 020 1:09 PM EDT SEDIMENTATION RATE Routine 05/06/2020 5:57 AM EDT C-REACTIVE PROTEIN Routine 05/06/2020 5:57 AM EDT VANCOMYCIN, RANDOM Routine 05/06/2020 5:57 AM EDT POCT GLUCOSE FINGERSTICK Routine 9:30 PM EDT POCT GLUCOSE FINGERSTICK Routine 020 5:13 PM EDT HEMODIALYSIS INPATIENT Routine 0 2:14 PM EDT POCT GLUCOSE FINGERSTICK Routine 020 12:28 PM EDT CBC (NO DIFF) Routine 05/05/2020 11:42 AM EDT POCT GLUCOSE FINGERSTICK Routine 020 8:56 AM EDT POCT GLUCOSE FINGERSTICK Routine 020 8:22 AM EDT POCT GLUCOSE FINGERSTICK Routine 020 10:19 PM EDT UPPER GI ENDOSCOPY 05/04/2020 6:38 PM EDT LA ESOPHAGOGASTRODUODENOSCOP Y TRANSORAL DIAGNOSTIC 05/04/2020 6:35 PM EDT POCT GLUCOSE FINGERSTICK Routine 020 6:07 PM EDT POTASSIUM Routine 05/04/2020 1:19 PM EDT POCT GLUCOSE FINGERSTICK Routine 020 12:38 PM EDT CBC (NO DIFF) Routine 05/04/2020 8:02 AM EDT MAGNESIUM Routine 05/04/2020 8:02 AM EDT BASIC METABOLIC PANEL Routine 05/04/2020 8:02 AM EDT POCT GLUCOSE FINGERSTICK Routine 020 7:41 AM EDT HEMOGLOBIN AND HEMATOCRIT, BLOOD Timed 05/03/2020 11:39 PM EDT POCT GLUCOSE FINGERSTICK Routine 020 9:26 PM EDT POCT GLUCOSE FINGERSTICK Routine 020 4:34 PM EDT HEMOGLOBIN AND HEMATOCRIT, BLOOD Timed 05/03/2020 4:16 PM EDT POCT GLUCOSE FINGERSTICK Routine 020 11:14 AM EDT ANTIBODY IDENTIFICATION STAT 05/03/20 9:56 AM EDT TYPE AND SCREEN STAT 05/03/2020 9:56 AM EDT CBC (NO DIFF) STAT 05/03/2020 9:55 AM EDT POCT GLUCOSE FINGERSTICK Routine 020 7:19 AM EDT ECG 12-LEAD STAT 05/03/2020 5:07 AM EDT POCT GLUCOSE FINGERSTICK Routine 020 8:25 PM EDT POCT GLUCOSE FINGERSTICK Routine 020 5:20 PM EDT HEMODIALYSIS INPATIENT Routine 0 2:31 PM EDT OCCULT BLOOD X 1, STOOL Routine 05/02/20 12:49 PM EDT PREPARE RBC Routine 05/02/2020 12:10 PM EDT POCT GLUCOSE FINGERSTICK Routine 020 11:52 AM EDT POCT GLUCOSE FINGERSTICK Routine 020 8:10 AM EDT POCT GLUCOSE FINGERSTICK Routine 020 8:56 PM EDT POCT GLUCOSE FINGERSTICK Routine 020 3:56 PM EDT POCT GLUCOSE FINGERSTICK Routine 020 11:42 AM EDT TRANSFUSE RED BLOOD CELLS Routine 2019 10:44 AM EDT TRANSFUSE RED BLOOD CELLS Routine 2019 9:53 AM EDT CBC (NO DIFF) Routine 05/01/2020 9:07 AM EDT VANCOMYCIN, RANDOM Routine 05/01/2020 9:07 AM EDT BASIC METABOLIC PANEL Routine 05/01/2020 9:07 AM EDT POCT GLUCOSE FINGERSTICK Routine 020 7:45 AM EDT POCT GLUCOSE FINGERSTICK Routine 020 8:32 PM EDT POCT GLUCOSE FINGERSTICK Routine 020 4:19 PM EDT HEMODIALYSIS INPATIENT Routine 0 2:45 PM EDT ANTIBODY IDENTIFICATION Routine 04/30/20 20 2:26 PM EDT TYPE AND SCREEN Routine 04/30/2020 2:26 PM EDT POCT GLUCOSE FINGERSTICK Routine 11:16 AM EDT POCT GLUCOSE FINGERSTICK Routine 020 8:19 AM EDT ABORH 2ND SPECIMEN VERIFICATION Routine 04/30/2020 7:59 AM EDT IRON PROFILEC Routine 04/30/2020 7:59 AM EDT CBC (NO DIFF) Routine 04/30/2020 7:59 AM EDT PHOSPHORUS Routine 04/30/2020 7:59 AM EDT FERRITIN Routine 04/30/2020 7:59 AM EDT COMPREHENSIVE METABOLIC PANEL Routine 7:59 AM EDT POCT GLUCOSE FINGERSTICK Routine 020 9:09 PM EDT POCT GLUCOSE FINGERSTICK Routine 020 7:36 PM EDT FL C ARM DURING SURGERY Routine 04/29/20 20 7:16 PM EDT AFB CULTURE Routine 04/29/2020 7:15 PM EDT Abscess in epidural space of lumbar spine TISSUE / BONE CULTURE Routine 04/29/2020 7:15 PM EDT Abscess in epidural space of lumbar spine FUNGAL CULTURE Routine 04/29/2020 7:15 PM EDT Abscess in epidural space of lumbar spine ANAEROBIC CULTURE Routine 04/29/2020 7:15 PM EDT Abscess in epidural space of lumbar spine WOUND CULTURE Routine 04/29/2020 6:43 PM EDT Abscess in epidural space of lumbar spine ANAEROBIC CULTURE Routine 04/29/2020 6:43 PM EDT HEMOGLOBIN AND HEMATOCRIT, BLOOD Routine 04/29/2020 5:46 PM EDT LA RIVERA FACETECTOMY & FORAMOT XIOMY 1 VRT SGM LUMBAR 04/29/2020 5:12 PM EDT BASIC METABOLIC PANEL Add-On 04/29/2020 3:33 PM EDT HEMODIALYSIS INPATIENT Routine 0 10:04 AM EDT POCT GLUCOSE FINGERSTICK Routine 020 8:07 AM EDT CBC WITH AUTO DIFFERENTIAL Routine 04/29 6:18 AM EDT CYCLOSPORINE LEVEL Routine 04/29/2020 6:18 AM EDT MAGNESIUM Routine 04/29/2020 6:18 AM EDT VANCOMYCIN, RANDOM Routine 04/29/2020 6:18 AM EDT COMPREHENSIVE METABOLIC PANEL Routine 6:18 AM EDT MRSA DNA PROBE Routine 04/29/2020 1:50 AM EDT URINALYSIS, MICROSCOPIC ONLY STAT 1:44 AM EDT URINALYSIS W/ MICROSCOPIC IF INDICATED (NO CULTURE) STAT 04/29/2020 1:44 AM EDT URINE DRUG SCREEN Routine 04/29/2020 1:44 AM EDT POCT GLUCOSE FINGERSTICK Routine 020 8:51 PM EDT ACUTE HEPATITIS PANEL Routine 04/28/2020 7:24 PM EDT HEP B CONFIRMATION TUBE Routine 04/28/20 20 7:24 PM EDT PROCALCITONIN STAT 04/28/2020 7:24 PM EDT TROPONIN Routine 04/28/2020 7:24 PM EDT HEPATITIS PANEL, ACUTE Routine 0 7:24 PM EDT POCT GLUCOSE FINGERSTICK Routine 020 5:23 PM EDT RESPIRATORY PANEL PCR W/ COVID-19 (SARS-COV-2), ESL INSTRUCTOR SWAB IN UTM/VTP, 2 HR TAT Routine 04/28/2020 3:05 PM EDT COVID PRE-OP / PRE-PROCEDURE SCREENING ORDER (NO ISOLATION) Routine 04/28/2020 3:05 PM EDT HEMODIALYSIS INPATIENT Routine 0 3:01 PM EDT BLOOD GAS, ARTERIAL W/CO-OXIMETRY Routine 04/28/2020 11:43 AM EDT MRI LUMBAR SPINE WO CONTRAST STAT 10:52 AM EDT LACTIC ACID, REFLEX STAT 04/28/2020 7:01 AM EDT BLOOD CULTURE STAT 04/28/2020 7:01 AM EDT BLOOD CULTURE STAT 04/28/2020 6:[address] LUMBAR SPINE WO CONTRAST STAT 04/14 6:[address] CHEST WO CONTRAST DIAGNOSTIC STAT 04/28/2020 6:[address] ABDOMEN PELVIS WO CONTRAST STAT 6:08 AM EDT XR CHEST 1 VW STAT 04/28/2020 1:52 AM EDT ECG 12-LEAD STAT 04/28/2020 12:20 AM EDT LACTIC ACID REFLEX TIMER STAT 020 12:17 AM EDT LACTIC ACID, PLASMA STAT 04/28/2020 12:17 AM EDT GOLD TOP - SST STAT 04/28/2020 12:16 AM EDT DK GREEN TOP STAT 04/28/2020 12:16 AM EDT CBC WITH AUTO DIFFERENTIAL STAT 04/28 12:16 AM EDT LAVENDER TOP STAT 04/28/2020 12:16 AM EDT LIGHT BLUE TOP STAT 04/28/2020 12:16 AM EDT RAINBOW DRAW STAT 04/28/2020 12:16 AM EDT TROPONIN STAT 04/28/2020 12:16 AM EDT CBC AND DIFFERENTIAL STAT 04/28/2020 12:16 AM EDT MAGNESIUM STAT 04/28/2020 12:16 AM EDT COMPREHENSIVE METABOLIC PANEL STAT 12:16 AM EDT SCANNED - TELEMETRY 04/28/2020 SCANNED - TELEMETRY 04/28/2020 SCANNED - TELEMETRY 04/28/2020 SCANNED - TELEMETRY 04/28/2020 SCANNED - TELEMETRY 04/28/2020 SCANNED - TELEMETRY 04/28/2020 documented in this encounter Results * (ABNORMAL) POC Glucose Once (05/13/2020 11:28 AM EDT) Glucose 151(H) 70 - 130 mg/dL 05/13/2020 11:37 AM EDT [facility] Blood 05/13/2020 11:2 8 AM EDT 05/13/2020 11:37 AM EDT Gabbi Paul II, DO POINT OF CARE TEST ORDERA BLES Final Result Performing Organization Address City/[facility]/ZIP Co de Phone Number [facility]
[address] [place] [address], * POC Glucose Once (05/13/2020 8:50 AM EDT) Glucose 96 70 - 130 mg/dL 05/13/2020 8:55 AM EDT [facility] Blood 05/13/2020 8:50 AM EDT 05/13/2020 8:55 AM EDT Gabbi Paul II, DO POINT OF CARE TEST ORDERA BLES Final Result Performing Organization Address City/[facility]/ZIP Co de Phone Number [facility]
[address] [place] [address], * (ABNORMAL) C-reactive Protein (05/13/2020 8:31 AM EDT) C-Reactive Protein 14.82(H) 0.00 - 0.50 mg/dL 05/13/2020 8:55 AM EDT [facility] Blood Line / Unknown 05/13/2020 8: 31 AM EDT 05/13/2020 8:31 AM EDT us aCyetano Rodriguez MD LAB BLOOD ORDERABLES Final Resul t Performing Organization Address City/[facility]/ZIP Co de Phone Number [facility]
[address] [place] [address], [place] [phone] * POC Glucose Once (05/13/2020 7:30 AM EDT) Glucose 117 70 - 130 mg/dL 05/13/2020 7:32 AM EDT [facility] Blood 05/13/2020 7:30 AM EDT 05/13/2020 7:32 AM EDT us Gabbi Paul II, DO POINT OF CARE TEST ORDERA BLES Final Result Performing Organization Address [facility] Co de Phone Number [facility]
[address] [place] [address], * (ABNORMAL) POC Glucose Once (05/12/2020 8:17 PM EDT) Glucose 144(H) 70 - 130 mg/dL 05/12/2020 8:18 PM EDT [facility] Blood 05/12/2020 8:17 PM EDT 05/12/2020 8:18 PM EDT us Gabbi Paul II, DO POINT OF CARE TEST ORDERA BLES Final Result Performing Organization Address City/[facility]/ZIP Co de Phone Number [facility]
[address] [place] [address], [place] [phone] * (ABNORMAL) POC Glucose Once (05/12/2020 4:16 PM EDT) Glucose 138(H) 70 - 130 mg/dL 05/12/2020 4:17 PM EDT [facility] Blood 05/12/2020 4:16 PM EDT 05/12/2020 4:17 PM EDT Gabbi M Beverly II, DO POINT OF CARE TEST ORDERA BLES Final Result Performing Organization Address City/[facility]/ZIP Co de Phone Number [facility]
[address] [place] [address], [place] [phone] * POC Glucose Once (05/12/2020 11:15 AM EDT) Glucose 129 70 - 130 mg/dL 05/12/2020 11:37 AM EDT [facility] Blood 05/12/2020 11:1 5 AM EDT 05/12/2020 11:37 AM EDT Gabbi M Beverly II, DO POINT OF CARE TEST ORDERA BLES Final Result Performing Organization Address [facility] Co de Phone Number [facility]
[address] [place] [address], [place] [phone] * POC Glucose Once (05/12/2020 8:06 AM EDT) Glucose 126 70 - 130 mg/dL 05/12/2020 8:08 AM EDT [facility] Blood 05/12/2020 8:06 AM EDT 05/12/2020 8:08 AM EDT Gabbi M Beverly II, DO POINT OF CARE TEST ORDERA BLES Final Result Performing Organization Address City/[facility] Co de Phone Number [facility]
[address] [place] [address], [place] [phone] * (ABNORMAL) POC Glucose Once (05/11/2020 8:19 PM EDT) Glucose 186(H) 70 - 130 mg/dL 05/11/2020 8:21 PM EDT [facility] Blood 05/11/2020 8:19 PM EDT 05/11/2020 8:21 PM EDT us Odette Grace MD POINT OF CARE TEST ORDERABLES Fi nal Result Performing Organization Address City/[facility]/ZIP Co de Phone Number [facility]
[address] [place] [address], [place] [phone] * POC Glucose Once (05/11/2020 4:49 PM EDT) Glucose 121 70 - 130 mg/dL 05/11/2020 4:54 PM EDT [facility] Blood 05/11/2020 4:49 PM EDT 05/11/2020 4:54 PM EDT us Odette Grace MD POINT OF CARE TEST ORDERABLES Fi nal Result Performing Organization Address [facility] Co de Phone Number [facility]
[address] [place] [address], [place] [phone] * (ABNORMAL) POC Glucose Once (05/11/2020 7:28 AM EDT) Glucose 158(H) 70 - 130 mg/dL 05/11/2020 7:29 AM EDT [facility] Blood 05/11/2020 7:28 AM EDT 05/11/2020 7:29 AM EDT us Odette Grace MD POINT OF CARE TEST ORDERABLES Fi nal Result Performing Organization Address City/[facility] Co de Phone Number [facility]
[address] [place] [address], [place] [phone] * (ABNORMAL) CBC Auto Differential (05/11/2020 7:00 AM EDT) WBC 6.60 3.40 - 10.80 10*3/mm3 [facility]2020 [facility] RBC 2.72(L) 4.14 - 5.80 10*6/mm3 05/11/2020 7[facility] Hemoglobin 8.3(L) 13.0 - 17.7 g/dL 05/11/2020 7:34 AM [facility] Hematocrit 27.2(L) 37.5 - 51.0 % 05/11/2020 7:[facility] MCV 100.0(H) 79.0 - 97.0 fL 05/11/2020 7:34 AM [facility] MCH 30.5 26.6 - 33.0 pg 05/11/2020 7:34 AM [facility] MCHC 30.5(L) 31.5 - 35.7 g/dL 05/11/2020 7:34 AM [facility] RDW 14.0 12.3 - 15.4 % 05/11/2020 7:34 AM [facility] RDW-SD 50.4 37.0 - 54.0 fl 05/11/2020 7:34 AM [facility] MPV 9.4 6.0 - 12.0 fL 05/11/2020 7:34 AM [facility] Platelets 388 140 - 450 10*3/mm3 05/11/2020 7[facility] Neutrophil % 63.2 42.7 - 76.0 % 05/11/2020 7[facility] Lymphocyte % 23.0 19.6 - 45.3 % 05/11/2020 7[facility] Monocyte % 9.1 5.0 - 12.0 % 05/11/2020 7[facility] Eosinophil % 2.6 0.3 - 6.2 % 05/11/2020 7:[facility] Basophil % 0.3 0.0 - 1.5 % 05/11/2020 7:34 AM EDT [facility] Immature Grans % 1.8(H) 0.0 - 0.5 % 05/11/2020 7:34 AM EDT [facility] Neutrophils, Absolute 4.17 1.70 - 7.00 10*3/mm3 05/11/2020 7:34 AM EDT [facility] Lymphocytes, Absolute 1.52 0.70 - 3.10 10*3/mm3 05/11/2020 7:34 AM EDT [facility] Monocytes, Absolute 0.60 0.10 - 0.90 10*3/mm3 05/11/2020 7:34 AM EDT [facility] Eosinophils, Absolute 0.17 0.00 - 0.40 10*3/mm3 05/11/2020 7:34 AM EDT [facility] Basophils, Absolute 0.02 0.00 - 0.20 10*3/mm3 05/11/2020 7:34 AM EDT [facility] Immature Grans, Absolute 0.12(H) 0.00 - 0.05 10*3/mm3 05/11/2020 7:34 AM EDT [facility] nRBC 0.0 0.0 - 0.2 /100 WBC 05/11/2020 7:34 AM EDT [facility] Blood Venipuncture / Unknown 05/11/2020 7:00 AM EDT 05/11/2020 7:20 AM EDT us Cayetano Rodriguez MD LAB BLOOD ORDERABLES Final Resul t [facility]
[address] [place] [address], * (ABNORMAL) Comprehensive Metabolic Panel (05/11/2020 7:00 AM EDT) Glucose 115(H) 65 - 99 mg/dL 05/11/2020 8:02 AM EDT [facility] BUN 65(H) 6 - 20 mg/dL 05/11/2020 [facility] Creatinine 8.56(H) 0.76 - 1.27 mg/dL 05/11/2020 8:02 AM [facility] Sodium 134(L) 136 - 145 mmol/L 05/11/2020 8:02 AM [facility] Potassium 5.0 3.5 - 5.2 mmol/L 05/11/2020 8:02 AM [facility] Chloride 94(L) 98 - 107 mmol/L 05/11/2020 8:02 AM [facility] CO2 20.0(L) 22.0 - 29.0 mmol/L 05/11/2020 8:02 AM [facility] Calcium 9.2 8.6 - 10.5 mg/dL 05/11/2020 8:02 AM [facility] Total Protein 6.6 6.0 - 8.5 g/dL 05/11/2020 8:02 AM [facility] Albumin 3.30(L) 3.50 - 5.20 g/dL 05/11/2020 8:02 AM [facility] ALT (SGPT) 12 1 - 41 U/L 05/11/2020 8:02 AM [facility] AST (SGOT) 14 1 - 40 U/L 05/11/2020 8:02 AM [facility] Alkaline Phosphatase 80 39 - 117 U/L 05/11/2020 8:02 AM [facility] Total Bilirubin 0.2 0.0 - 1.2 mg/dL 05/11/2020 8:02 AM [facility] eGFR Non Amer 7(L) >60 mL/min/1.7 3 05/11/2020 8:02 AM [facility] Comment:<15 Indicative of ki dney failure. eGFR Amer 05/11/2020 8:02 AM [facility] Comment:<15 Indicative of ki dney failure. Globulin 3.3 gm/dL 05/11/2020 8:02 AM [facility] A/G Ratio 1.0 g/dL 05/11/2020 8:02 AM EDT [facility] BUN/Creatinine Ratio 7.6 7.0 - 25.0 05/11/2020 8:02 AM EDT [facility] Anion Gap 20.0(H) 5.0 - 15.0 mmol/L 05/11/2020 8:02 AM EDT [facility] Blood Venipuncture / Unknown 05/11/2020 7:00 AM EDT 05/11/2020 7:19 AM EDT Narrative [facility] - 05/11/2020 8:02 AM EDT GFR Normal >60 Chronic Kidney Disease <60 Kidney Failure <15 us Cayetano Rodriguez MD LAB BLOOD ORDERABLES Final Resul t Performing Organization Address City/[place] Hospital/ZIP Co de Phone Number [facility]
[address] [place] [address], * (ABNORMAL) C-reactive Protein (05/11/2020 7:00 AM EDT) C-Reactive Protein 15.69(H) 0.00 - 0.50 mg/dL 05/11/2020 7:57 AM EDT [facility] Blood Venipuncture / Unknown 05/11/2020 7:00 AM EDT 05/11/2020 7:20 AM EDT us Cayetano Rodriguez MD LAB BLOOD ORDERABLES Final Resul t [facility]
[address] [place] [address], [place] [phone] * Vancomycin, Random (05/11/2020 7:00 AM EDT) Vancomycin Random 19.20 5.00 - 40.00 mcg/mL 05/11/2020 8:04 AM EDT [facility] Blood Venipuncture / Unknown 05/11/2020 7:00 AM EDT 05/11/2020 7:20 AM EDT Callie Schwartz LAB BLOOD ORDERABLES Final Resul t Performing Organization Address [facility] de Phone Number [facility]
[address] [place] [address], [place] [phone] * POC Glucose Once (05/10/2020 9:00 PM EDT) Glucose 128 70 - 130 mg/dL 05/10/2020 9:02 PM EDT [facility] Blood 05/10/2020 9:00 PM EDT 05/10/2020 9:02 PM EDT us Odette Grace MD POINT OF CARE TEST ORDERABLES Fi nal Result Performing Organization Address [facility] Phone Number [facility]
[address] [place] [address], * POC Glucose Once (05/10/2020 4:11 PM EDT) Glucose 112 70 - 130 mg/dL 05/10/2020 4:12 PM EDT [facility] Blood 05/10/2020 4:11 PM EDT 05/10/2020 4:12 PM EDT us Odette Grace MD POINT OF CARE TEST ORDERABLES Fi nal Result Performing Organization Address [facility] de Phone Number [facility]
[address] [place] [address], [place] [phone] * POC Glucose Once (05/10/2020 11:30 AM EDT) Glucose 130 70 - 130 mg/dL 05/10/2020 11:34 AM EDT [facility] Blood 05/10/2020 11:3 0 AM EDT 05/10/2020 11:34 AM EDT us Odette Grace MD POINT OF CARE TEST ORDERABLES Fi nal Result Performing Organization Address [facility]/ZIP Co de Phone Number [facility]
[address] [place] [address], * POC Glucose Once (05/10/2020 7:32 AM EDT) Glucose 116 70 - 130 mg/dL 05/10/2020 7:34 AM EDT [facility] Blood 05/10/2020 7:32 AM EDT 05/10/2020 7:34 AM EDT us Odette Grace MD POINT OF CARE TEST ORDERABLES Fi nal Result Performing Organization Address [facility] Co de Phone Number [facility]
[address] [place] [address], * (ABNORMAL) POC Glucose Once (05/09/2020 8:15 PM EDT) Glucose 144(H) 70 - 130 mg/dL 05/09/2020 8:16 PM EDT [facility] Blood 05/09/2020 8:15 PM EDT 05/09/2020 8:16 PM EDT us Odette Grace MD POINT OF CARE TEST ORDERABLES Fi nal Result Performing Organization Address [facility] Co de Phone Number [facility]
[address] [place] [address], [place] [phone] * (ABNORMAL) POC Glucose Once (05/09/2020 4:01 PM EDT) Glucose 133(H) 70 - 130 mg/dL 05/09/2020 4:19 PM EDT [facility] Blood 05/09/2020 4:01 PM EDT 05/09/2020 4:19 PM EDT us Odette Grace MD POINT OF CARE TEST ORDERABLES Fi nal Result Performing Organization Address [facility] Co de Phone Number [facility]
[address] [place] [address], * (ABNORMAL) POC Glucose Once (05/09/2020 11:54 AM EDT) Glucose 136(H) 70 - 130 mg/dL 05/09/2020 12:06 PM EDT [facility] Blood 05/09/2020 11:5 4 AM EDT 05/09/2020 12:06 PM EDT us Odette Grace MD POINT OF CARE TEST ORDERABLES Fi nal Result Performing Organization Address [facility] de Phone Number [facility]
[address] [place] [address], * POC Glucose Once (05/09/2020 7:27 AM EDT) Glucose 124 70 - 130 mg/dL 05/09/2020 7:50 AM EDT [facility] Blood 05/09/2020 7:27 AM EDT 05/09/2020 7:50 AM EDT us Odette Grace MD POINT OF CARE TEST ORDERABLES Fi nal Result Performing Organization Address [facility] Co de Phone Number [facility]
[address] [place] [address], * (ABNORMAL) POC Glucose Once (05/08/2020 8:02 PM EDT) Glucose 186(H) 70 - 130 mg/dL 05/08/2020 8:03 PM EDT [facility] Blood 05/08/2020 8:02 PM EDT 05/08/2020 8:03 PM EDT us Alverto Ferrera MD POINT OF CARE TEST ORDERABLES Final Result Performing Organization Address [facility]/ZIP Co de Phone Number [facility]
[address] [place] [address], * POC Glucose Once (05/08/2020 4:23 PM EDT) Glucose 124 70 - 130 mg/dL 05/08/2020 4:33 PM EDT [facility] Blood 05/08/2020 4:23 PM EDT 05/08/2020 4:33 PM EDT Alverto Ferrera MD POINT OF CARE TEST ORDERABLES Final Result Performing Organization Address [facility] de Phone Number [facility]
[address] [place] [address], * (ABNORMAL) Manual Differential (05/08/2020 8:55 AM EDT) Pathologist [facility] Neutrophil % 71.0 42.7 - 76.0 % 05/08/2020 10:16 AM EDT [facility] Lymphocyte % 13.0(L) 19.6 - 45.3 % 05/08/2020 10:16 AM EDT [facility] Monocyte % 10.0 5.0 - 12.0 % 05/08/2020 10:16 AM EDT [facility] Eosinophil % 0.0(L) 0.3 - 6.2 % 05/08/2020 10:16 AM EDT [facility] Basophil % 0.0 0.0 - 1.5 % 05/08/2020 10:16 AM EDT [facility] Bands % 3.0 0.0 - 5.0 % 05/08/2020 10:16 AM EDT [facility] Metamyelocyte % 1.0(H) 0.0 - 0.0 % 05/08/2020 10:16 AM EDT [facility] Myelocyte % 2.0(H) 0.0 - 0.0 % 05/08/2020 10:16 AM EDT [facility] Neutrophils Absolute 4.60 1.70 - 7.00 10*3/mm3 05/08/2020 10:16 AM EDT [facility] Lymphocytes Absolute 0.81 0.70 - 3.10 10*3/mm3 05/08/2020 10:16 AM EDT [facility] Monocytes Absolute 0.62 0.10 - 0.90 10*3/mm3 05/08/2020 10:16 AM EDT [facility] Eosinophils Absolute 0.00 0.00 - 0.40 10*3/mm3 05/08/2020 10:16 AM EDT [facility] Basophils Absolute 0.00 0.00 - 0.20 10*3/mm3 05/08/2020 10:16 AM EDT [facility] RBC Morphology Normal Normal 05/08/2020 10:16 AM EDT [facility] WBC Morphology Normal Normal 05/08/2020 10:16 AM EDT [facility] Platelet Morphology Normal Normal 05/08/2020 10:16 AM EDT [facility] Blood Venipuncture / Unknown 05/08/2020 8:55 AM EDT 05/08/2020 9:04 AM EDT us Cayetano Rodriguez MD LAB BLOOD ORDERABLES Final Resul t [facility]
[address] [place] [address], * (ABNORMAL) CBC Auto Differential (05/08/2020 8:55 AM EDT) WBC 6.21 3.40 - 10.80 10*3/mm3 05/08/2020 10:16 AM EDT [facility] RBC 2.52(L) 4.14 - 5.80 10*6/mm3 05/08/2020 10:16 AM EDT [facility] Hemoglobin 7.6(L) 13.0 - 17.7 g/dL 05/08/2020 10:16 AM EDT [facility] Hematocrit 25.0(L) 37.5 - 51.0 % 05/08/2020 10:16 AM EDT [facility] MCV 99.2(H) 79.0 - 97.0 fL 05/08/2020 10:16 AM EDT [facility] MCH 30.2 26.6 - 33.0 pg 05/08/2020 10:16 AM EDT [facility] MCHC 30.4(L) 31.5 - 35.7 g/dL 05/08/2020 10:16 AM EDT [facility] RDW 14.2 12.3 - 15.4 % 05/08/2020 10:16 AM EDT [facility] RDW-SD 51.2 37.0 - 54.0 fl 05/08/2020 10:16 AM EDT [facility] MPV 9.7 6.0 - 12.0 fL 05/08/2020 10:16 AM EDT [facility] Platelets 447 140 - 450 10*3/mm3 05/08/2020 10:16 AM EDT [facility] Blood Venipuncture / Unknown 05/08/2020 8:55 AM EDT 05/08/2020 9:04 AM EDT us Cayetano Rodriguez MD LAB BLOOD ORDERABLES Final Resul t Performing Organization Address [facility]/ZIP Co de Phone Number [facility]
[address] [place] [address], [place] [phone] * CK (05/08/2020 8:55 AM EDT) Creatine Kinase 49 20 - 200 U/L 05/08/2020 9:30 AM EDT [facility] Blood Venipuncture / Unknown 05/08/2020 8:55 AM EDT 05/08/2020 9:03 AM EDT us Cayetano Rodriguez MD LAB BLOOD ORDERABLES Final Resul t [facility]
[address] [place] [address], * Vancomycin, Random (05/08/2020 8:55 AM EDT) Vancomycin Random 21.30 5.00 - 40.00 mcg/mL 05/08/2020 9:32 AM EDT [facility] Blood Venipuncture / Unknown 05/08/2020 8:55 AM EDT 05/08/2020 9:03 AM EDT Karli Camp [facility] LAB BLOOD ORDERABLES Final Result Performing Organization Address City/[facility]/ZIP Co de Phone Number [facility]
[address] [place] [address], * (ABNORMAL) C-reactive Protein (05/08/2020 8:55 AM EDT) C-Reactive Protein 12.16(H) 0.00 - 0.50 mg/dL 05/08/2020 9:29 AM EDT [facility] Blood Venipuncture / Unknown 05/08/2020 8:55 AM EDT 05/08/2020 9:03 AM EDT Cayetano Rodriguez MD LAB BLOOD ORDERABLES Final Resul t Performing Organization Address [facility]/ZIP Co de Phone Number [facility] [place] [address], * (ABNORMAL) POC Glucose Once (05/08/2020 7:22 AM EDT) Glucose 161(H) 70 - 130 mg/dL 05/08/2020 7:39 AM EDT [facility] Blood 05/08/2020 7:22 AM EDT 05/08/2020 7:39 AM EDT Alverto Ferrera MD POINT OF CARE TEST ORDERABLES Final Result Performing Organization Address [facility]/ZIP Co de Phone Number [facility]
[address] [place] [address], * (ABNORMAL) POC Glucose Once (05/07/2020 8:03 PM EDT) Glucose 212(H) 70 - 130 mg/dL 05/07/2020 8:05 PM EDT [facility] Blood 05/07/2020 8:03 PM EDT 05/07/2020 8:05 PM EDT us Alverto Ferrera MD POINT OF CARE TEST ORDERABLES Final Result Performing Organization Address [facility] Co de Phone Number [facility]
[address] [place] [address], [place] [phone] * (ABNORMAL) POC Glucose Once (05/07/2020 4:08 PM EDT) Glucose 180(H) 70 - 130 mg/dL 05/07/2020 4:16 PM EDT [facility] Blood 05/07/2020 4:08 PM EDT 05/07/2020 4:16 PM EDT us Alverto Ferrera MD POINT OF CARE TEST ORDERABLES Final Result Performing Organization Address [facility] Co de Phone Number [facility]
[address] [place] [address], [place] [phone] * (ABNORMAL) POC Glucose Once (05/07/2020 11:07 AM EDT) Glucose 273(H) 70 - 130 mg/dL 05/07/2020 11:34 AM EDT [facility] Blood 05/07/2020 11:0 7 AM EDT 05/07/2020 11:34 AM EDT us Alverto Ferrera MD POINT OF CARE TEST ORDERABLES Final Result Performing Organization Address [facility]/ZIP Co de Phone Number [facility]
[address] [place] [address], * (ABNORMAL) POC Glucose Once (05/07/2020 7:38 AM EDT) Pathologist [facility] Glucose 144(H) 70 - 130 mg/dL 05/07/2020 7:40 AM EDT [facility] Blood 05/07/2020 7:38 AM EDT 05/07/2020 7:40 AM EDT Alverto Ferrera MD POINT OF CARE TEST ORDERABLES Final Result [facility]
[address] [place] [address], * (ABNORMAL) Cyclosporine Level (05/07/2020 7:38 AM EDT) Pathologist [facility] Cyclosporine <25(L) 100 - 400 ng/mL 05/11/2020 3:08 PM EDT [facility] Comment: Verified by repeat analysis ?Therapeutic: ? Renal Transplant ?? 100 - 250 ? Liver Transplant ?? 100 - 400 ? Cardiac Transplant 100 - 400 ? Bone Marrow ?200 - 300 ?Detection Limit = ??25 Assay performed by Liquid Chromatography Tandem Mass Spectrometry (LC-MS/MS) If preferred testing methodology for Cyclosporine is Liquid Chromatography Tandem Mass Spectrometry (LC-MS/MS) please use test code [id number]. ??For testing performed by Immunoassay, please use test code [id number]. This test was developed and its performance characteristics determined by [facility]. It has not been cleared or approved by the Food and Drug Administration. Blood Venipuncture / Unknown 05/07/2020 7:38 AM EDT 05/07/2020 7:50 AM EDT Narrative [facility] - 05/11/2020 3:08 PM EDT Performed at: ??01 - [address] ??[id number] And Drying Supervisor Cooking Casing: Jeny Pereyra MD, Phone: ??[phone] Karishma Hodge MD LAB BLOOD ORDERABLES Yoselin l Result Performing Organization Address City/[facility]/ZIP Co de Phone Number [facility] [address] [place] [address], * Ammonia (05/07/2020 7:38 AM EDT) Ammonia 18 16 - 60 umol/L 05/07/2020 8:34 AM EDT [facility] Blood Venipuncture / Unknown 05/07/2020 7:38 AM EDT 05/07/2020 7:49 AM EDT Alverto Ferrera MD LAB BLOOD ORDERABLES Final Res ult [facility]
[address] [place] [address], [place] [phone] * (ABNORMAL) Protime-INR (05/07/2020 7:38 AM EDT) Protime 15.8(H) 11.5 - 14.0 Seconds 05/07/2020 8:15 AM EDT [facility] INR 1.30(H) 0.85 - 1.16 05/07/2020 8:15 AM EDT [facility] Blood Venipuncture / Unknown 05/07/2020 7:38 AM EDT 05/07/2020 7:50 AM EDT us Alverto Ferrera MD LAB BLOOD ORDERABLES Final Res ult [facility]
[address] [place] [address], [place] [phone] * (ABNORMAL) CBC (No Diff) (05/07/2020 7:38 AM EDT) WBC 9.30 3.40 - 10.80 10*3/mm3 05/07/2020 8:01 AM EDT [facility] RBC 2.58(L) 4.14 - 5.80 10*6/mm3 05/07/2020 8:01 AM EDT [facility] Hemoglobin 7.9(L) 13.0 - 17.7 g/dL 05/07/2020 8:01 AM EDT [facility] Hematocrit 25.3(L) 37.5 - 51.0 % 05/07/2020 8:01 AM EDT [facility] MCV 98.1(H) 79.0 - 97.0 fL 05/07/2020 8:01 AM EDT [facility] MCH 30.6 26.6 - 33.0 pg 05/07/2020 8:01 AM EDT [facility] MCHC 31.2(L) 31.5 - 35.7 g/dL 05/07/2020 8:01 AM EDT [facility] RDW 14.3 12.3 - 15.4 % 05/07/2020 8:01 AM EDT [facility] RDW-SD 49.7 37.0 - 54.0 fl 05/07/2020 8:01 AM EDT [facility] MPV 9.6 6.0 - 12.0 fL 05/07/2020 8:01 AM EDT [facility] Platelets 478(H) 140 - 450 10*3/mm3 05/07/2020 8:01 AM EDT [facility] Blood Venipuncture / Unknown 05/07/2020 7:38 AM EDT 05/07/2020 7:54 AM EDT us Alverto Ferrera MD LAB BLOOD ORDERABLES Final Res ult [facility]
[address] [place] [address], * (ABNORMAL) Comprehensive Metabolic Panel (05/07/2020 7:38 AM EDT) Glucose 140(H) 65 - 99 mg/dL 05/07/2020 8:37 AM EDT [facility] BUN 39(H) 6 - 20 mg/dL 05/07/2020 8:37 AM EDT [facility] Creatinine 7.56(H) 0.76 - 1.27 mg/dL 05/07/2020 8:37 AM EDT [facility] Sodium 133(L) 136 - 145 mmol/L 05/07/2020 8:37 AM EDT [facility] Potassium 3.7 3.5 - 5.2 mmol/L 05/07/2020 8:37 AM EDT [facility] Chloride 96(L) 98 - 107 mmol/L 05/07/2020 8:37 AM EDT [facility] CO2 21.0(L) 22.0 - 29.0 mmol/L 05/07/2020 8:37 AM EDT [facility] Calcium 8.9 8.6 - 10.5 mg/dL 05/07/2020 8:37 AM EDT [facility] Total Protein 6.2 6.0 - 8.5 g/dL 05/07/2020 8:37 AM EDT [facility] Albumin 3.00(L) 3.50 - 5.20 g/dL 05/07/2020 8:37 AM EDT [facility] ALT (SGPT) 14 1 - 41 U/L 05/07/2020 8:37 AM EDT [facility] AST (SGOT) 13 1 - 40 U/L [facility]/07[facility]2020 [facility] Alkaline Phosphatase 66 39 - 117 U/L 05/07/2020 8:37 AM EDT [facility] Total Bilirubin <0.2 0.0 - 1.2 mg/dL 05/07/2020 8:37 AM EDT [facility] eGFR Non Amer 8(L) >60 mL/min/1.7 3 05/07/2020 8:37 AM EDT [facility] Comment:<15 Indicative of ki dney failure. eGFR Amer 05/07/2020 8:37 AM EDT [facility] Comment:<15 Indicative of ki dney failure. Globulin 3.2 gm/dL 05/07/2020 8:37 AM EDT [facility] A/G Ratio 0.9 g/dL 05/07/2020 8:37 AM EDT [facility] BUN/Creatinine Ratio 5.2(L) 7.0 - 25.0 05/07/2020 8:37 AM EDT [facility] Anion Gap 16.0(H) 5.0 - 15.0 mmol/L 05/07/2020 8:37 AM EDT [facility] Blood Venipuncture / Unknown 05/07/2020 7:38 AM EDT 05/07/2020 7:50 AM EDT Narrative [facility] - 05/07/2020 8:37 AM EDT GFR Normal >60 Chronic Kidney Disease <60 Kidney Failure <15 us Alverto Ferrera MD LAB BLOOD ORDERABLES Final Res ult [facility]
[address] [place] [address], * (ABNORMAL) POC Glucose Once (05/06/2020 9:52 PM EDT) Glucose 171(H) 70 - 130 mg/dL 05/06/2020 10:01 PM EDT [facility] Blood 05/06/2020 9:52 PM EDT 05/06/2020 10:01 PM EDT us Alverto Ferrera MD POINT OF CARE TEST ORDERABLES Final Result Performing Organization Address [facility]/ZIP Co de Phone Number [facility]
[address] [place] [address], * (ABNORMAL) POC Glucose Once (05/06/2020 4:04 PM EDT) Glucose 268(H) 70 - 130 mg/dL 05/06/2020 4:16 PM EDT [facility] Blood 05/06/2020 4:04 PM EDT 05/06/2020 4:16 PM EDT us Alverto Ferrera MD POINT OF CARE TEST ORDERABLES Final Result Performing Organization Address [facility] Co de Phone Number [facility]
[address] [place] [address], [place] [phone] * (ABNORMAL) POC Glucose Once (05/06/2020 1:09 PM EDT) Glucose 157(H) 70 - 130 mg/dL 05/06/2020 1:20 PM EDT [facility] Blood 05/06/2020 1:09 PM EDT 05/06/2020 1:20 PM EDT us Alverto Ferrera MD POINT OF CARE TEST ORDERABLES Final Result Performing Organization Address [facility] Co de Phone Number [facility]
[address] [place] [address], [place] [phone] * (ABNORMAL) C-reactive Protein (05/06/2020 5:57 AM EDT) C-Reactive Protein 18.73(H) 0.00 - 0.50 mg/dL 05/06/2020 8:45 AM EDT [facility] Blood Venipuncture / Unknown 05/06/2020 5:57 AM EDT 05/06/2020 8:22 AM EDT us Cayetano Rodriguez MD LAB BLOOD ORDERABLES Final Resul t Performing Organization Address [facility] de Phone Number [facility]
[address] [place] [address], [place] [phone] * (ABNORMAL) Sedimentation Rate (05/06/2020 5:57 AM EDT) Sed Rate 44(H) 0 - 15 mm/hr 05/06/2020 8:29 AM EDT [facility] Blood Venipuncture / Unknown 05/06/2020 5:57 AM EDT 05/06/2020 8:21 AM EDT us Cayetano Rodriguez MD LAB BLOOD ORDERABLES Final Resul t Performing Organization Address [facility] de Phone Number [facility]
[address] [place] [address], * Vancomycin, Random (05/06/2020 5:57 AM EDT) Vancomycin Random 23.20 5.00 - 40.00 mcg/mL 05/06/2020 8:45 AM EDT [facility] Blood Venipuncture / Unknown 05/06/2020 5:57 AM EDT 05/06/2020 8:22 AM EDT us Dewey Betancourt MD LAB BLOOD ORDERABLES Final Res ult Performing Organization Address [facility] Co de Phone Number [facility]
[address] [place] [address], [place] [phone] * (ABNORMAL) POC Glucose Once (05/05/2020 9:30 PM EDT) Glucose 177(H) 70 - 130 mg/dL 05/05/2020 9:31 PM EDT [facility] Blood 05/05/2020 9:30 PM EDT 05/05/2020 9:31 PM EDT us Odette Grace MD POINT OF CARE TEST ORDERABLES Fi nal Result Performing Organization Address [facility] de Phone Number [facility]
[address] [place] [address], [place] [phone] * (ABNORMAL) POC Glucose Once (05/05/2020 5:13 PM EDT) Glucose 183(H) 70 - 130 mg/dL 05/05/2020 5:15 PM EDT [facility] Blood 05/05/2020 5:13 PM EDT 05/05/2020 5:15 PM EDT us Odette Grace MD POINT OF CARE TEST ORDERABLES Fi nal Result Performing Organization Address [facility] Phone Number [facility]
[address] [place] [address], [place] [phone] * (ABNORMAL) POC Glucose Once (05/05/2020 12:28 PM EDT) Glucose 162(H) 70 - 130 mg/dL 05/05/2020 12:30 PM EDT [facility] Blood 05/05/2020 12:2 8 PM EDT 05/05/2020 12:30 PM EDT us Odette Grace MD POINT OF CARE TEST ORDERABLES Fi nal Result Performing Organization Address [facility] de Phone Number [facility]
[address] [place] [address], [place] [phone] * (ABNORMAL) CBC (No Diff) (05/05/2020 11:42 AM EDT) WBC 10.91(H) 3.40 - 10.80 10*3/mm3 05/05/2020 12:11 PM EDT [facility] RBC 2.65(L) 4.14 - 5.80 10*6/mm3 05/05/2020 12:11 PM EDT [facility] Hemoglobin 8.0(L) 13.0 - 17.7 g/dL 05/05/2020 12:11 PM EDT [facility] Hematocrit 26.8(L) 37.5 - 51.0 % 05/05/2020 12:11 PM EDT [facility] MCV 101.1(H) 79.0 - 97.0 fL 05/05/2020 12:11 PM EDT [facility] MCH 30.2 26.6 - 33.0 pg 05/05/2020 12:11 PM EDT [facility] MCHC 29.9(L) 31.5 - 35.7 g/dL 05/05/2020 12:11 PM EDT [facility] RDW 14.7 12.3 - 15.4 % 05/05/2020 12:11 PM EDT [facility] RDW-SD 53.6 37.0 - 54.0 fl 05/05/2020 12:11 PM EDT [facility] MPV 9.8 6.0 - 12.0 fL 05/05/2020 12:11 PM EDT [facility] Platelets 460(H) 140 - 450 10*3/mm3 05/05/2020 12:11 PM EDT [facility] Blood Venipuncture / Unknown 05/05/2020 11:42 AM EDT 05/05/2020 12:01 PM EDT us Dewey Betancourt MD LAB BLOOD ORDERABLES Final Res ult [facility]
[address] [place] [address], * (ABNORMAL) POC Glucose Once (05/05/2020 8:56 AM EDT) Glucose 131(H) 70 - 130 mg/dL [facility]2020 [facility] 05/05/2020 8:56 AM EDT 05/05/2020 8:58 AM EDT us Odette Grace MD POINT OF CARE TEST ORDERABLES Fi nal Result Performing Organization Address [facility] Co de Phone Number [facility]
[address] [place] [address], * (ABNORMAL) POC Glucose Once (05/05/2020 8:22 AM EDT) Glucose 136(H) 70 - 130 mg/dL 05/05/2020 8:23 AM EDT [facility] Blood 05/05/2020 8:22 AM EDT 05/05/2020 8:23 AM EDT us Odette Grace MD POINT OF CARE TEST ORDERABLES Fi nal Result Performing Organization Address [facility] de Phone Number [facility]
[address] [place] [address], [place] [phone] * (ABNORMAL) POC Glucose Once (05/04/2020 10:19 PM EDT) Glucose 146(H) 70 - 130 mg/dL 05/04/2020 10:20 PM EDT [facility] Blood 05/04/2020 10:1 9 PM EDT 05/04/2020 10:20 PM EDT us Odette Grace MD POINT OF CARE TEST ORDERABLES Fi nal Result Performing Organization Address [facility] de Phone Number [facility]
[address] [place] [address], [place] [phone] * UPPER GI ENDOSCOPY (05/04/2020 6:38 PM EDT) us Dewey Betancourt MD INTERFACE NEEDS Final Result * (ABNORMAL) POC Glucose Once (05/04/2020 6:07 PM EDT) Glucose 150(H) 70 - 130 mg/dL 05/04/2020 6:08 PM EDT [facility] Blood 05/04/2020 6:07 PM EDT 05/04/2020 6:08 PM EDT Odette Grace MD POINT OF CARE TEST ORDERABLES Fi nal Result Performing Organization Address City/[facility]/ZIP Co de Phone Number [facility]
[address] [place] [address], * (ABNORMAL) Potassium (05/04/2020 1:19 PM EDT) Potassium 3.3(L) 3.5 - 5.2 mmol/L 05/04/2020 2:01 PM EDT [facility] Blood Venipuncture / Unknown 05/04/2020 1:19 PM EDT 05/04/2020 1:45 PM EDT Celso Kim MD LAB BLOOD ORDERABLES Final Resu lt Performing Organization Address [facility]/ZIP Co de Phone Number [facility]
[address] [place] [address], * (ABNORMAL) POC Glucose Once (05/04/2020 12:38 PM EDT) Glucose 150(H) 70 - 130 mg/dL 05/04/2020 12:40 PM EDT [facility] Blood 05/04/2020 12:3 8 PM EDT 05/04/2020 12:40 PM EDT us Odette Grace MD POINT OF CARE TEST ORDERABLES Fi nal Result Performing Organization Address City/[facility]/ZIP Co de Phone Number [facility]
[address] [place] [address], * Magnesium (05/04/2020 8:02 AM EDT) Pathologist [facility] Magnesium 2.4 1.6 - 2.6 mg/dL 05/04/2020 9:33 AM EDT [facility] Blood Venipuncture / Unknown 05/04/2020 8:02 AM EDT 05/04/2020 9:04 AM EDT Odette Grace MD LAB BLOOD ORDERABLES Final Resul t [facility]
[address] [place] [address], * (ABNORMAL) CBC (No Diff) (05/04/2020 8:02 AM EDT) Pathologist [facility] WBC 11.93(H) 3.40 - 10.80 10*3/mm3 05/04/2020 9:19 AM EDT [facility] RBC 2.47(L) 4.14 - 5.80 10*6/mm3 05/04/2020 9:19 AM EDT [facility] Hemoglobin 7.5(L) 13.0 - 17.7 g/dL 05/04/2020 9:19 AM EDT [facility] Hematocrit 24.2(L) 37.5 - 51.0 % 05/04/2020 9:19 AM EDT [facility] MCV 98.0(H) 79.0 - 97.0 fL 05/04/2020 9:19 AM EDT [facility] MCH 30.4 26.6 - 33.0 pg 05/04/2020 9:19 AM EDT [facility] MCHC 31.0(L) 31.5 - 35.7 g/dL 05/04/2020 9:19 AM EDT [facility] RDW 15.0 12.3 - 15.4 % 05/04/2020 9:19 AM EDT [facility] RDW-SD 52.7 37.0 - 54.0 fl 05/04/2020 9:19 AM EDT [facility] MPV 9.8 6.0 - 12.0 fL 05/04/2020 9:19 AM EDT [facility] Platelets 433 140 - 450 10*3/mm3 05/04/2020 9:19 AM EDT [facility] Blood Venipuncture / Unknown 05/04/2020 8:02 AM EDT 05/04/2020 9:05 AM EDT us Odette Grace MD LAB BLOOD ORDERABLES Final Resul t [facility]
[address] [place] [address], * (ABNORMAL) Basic Metabolic Panel (05/04/2020 8:02 AM EDT) Glucose 123(H) 65 - 99 mg/dL 05/04/2020 9:33 AM EDT [facility] BUN 67(H) 6 - 20 mg/dL 05/04/2020 9:33 AM EDT [facility] Creatinine 11.30(H) 0.76 - 1.27 mg/dL 05/04/2020 9:33 AM EDT [facility] Sodium 134(L) 136 - 145 mmol/L 05/04/2020 9:33 AM EDT [facility] Potassium 3.8 3.5 - 5.2 mmol/L 05/04/2020 9:33 AM EDT [facility] Comment:Slight hemolysis det ected by analyzer. Results may be affected. Chloride 96(L) 98 - 107 mmol/L 05/04/2020 9:33 AM EDT [facility] CO2 18.0(L) 22.0 - 29.0 mmol/L 05/04/2020 9:33 AM EDT [facility] Calcium 9.1 8.6 - 10.5 mg/dL 05/04/2020 9:33 AM EDT [facility] eGFR Amer 05/04/2020 9:33 AM EDT [facility] Comment:<15 Indicative of ki dney failure. eGFR Non Amer 5(L) >60 mL/min/1.7 3 05/04/2020 9:33 AM EDT [facility] Comment:<15 Indicative of ki dney failure. BUN/Creatinine Ratio 5.9(L) 7.0 - 25.0 05/04/2020 9:33 AM EDT [facility] Anion Gap 20.0(H) 5.0 - 15.0 mmol/L 05/04/2020 9:33 AM EDT [facility] Blood Venipuncture / Unknown 05/04/2020 8:02 AM EDT 05/04/2020 9:04 AM EDT Narrative [facility] - 05/04/2020 9:33 AM EDT GFR Normal >60 Chronic Kidney Disease <60 Kidney Failure <15 Hilton Hamm MD LAB BLOOD ORDERABLES F inal Result [facility]
[address] [place] [address], * POC Glucose Once (05/04/2020 7:41 AM EDT) Glucose 118 70 - 130 mg/dL 05/04/2020 7:44 AM EDT [facility] Blood 05/04/2020 7:41 AM EDT 05/04/2020 7:44 AM EDT Odette Grace MD POINT OF CARE TEST ORDERABLES Fi nal Result [facility]
[address] [place] [address], * (ABNORMAL) Hemoglobin & Hematocrit, Blood (05/03/2020 11:39 PM EDT) Hemoglobin 7.5(L) 13.0 - 17.7 g/dL 05/04/2020 12:22 AM EDT [facility] Hematocrit 24.1(L) 37.5 - 51.0 % 05/04/2020 12:22 AM EDT [facility] Blood Venipuncture / Unknown 05/03/2020 11:39 PM EDT 05/04/2020 12:18 AM EDT us Odette Grace MD LAB BLOOD ORDERABLES Final Resul t Performing Organization Address City/[facility]/ZIP Co de Phone Number [facility]
[address] [place] [address], [place] [phone] * (ABNORMAL) POC Glucose Once (05/03/2020 9:26 PM EDT) Glucose 176(H) 70 - 130 mg/dL 05/03/2020 9:27 PM EDT [facility] Blood 05/03/2020 9:26 PM EDT 05/03/2020 9:27 PM EDT us Odette Grace MD POINT OF CARE TEST ORDERABLES Fi nal Result Performing Organization Address [facility] Co de Phone Number [facility]
[address] [place] [address], [place] [phone] * (ABNORMAL) POC Glucose Once (05/03/2020 4:34 PM EDT) Glucose 167(H) 70 - 130 mg/dL 05/03/2020 4:37 PM EDT [facility] Blood 05/03/2020 4:34 PM EDT 05/03/2020 4:37 PM EDT us Odette Grace MD POINT OF CARE TEST ORDERABLES Fi nal Result Performing Organization Address [facility] Co de Phone Number [facility]
[address] [place] [address], [place] [phone] * (ABNORMAL) Hemoglobin & Hematocrit, Blood (05/03/2020 4:16 PM EDT) Hemoglobin 7.9(L) 13.0 - 17.7 g/dL 05/03/2020 4:43 PM EDT [facility] Hematocrit 24.8(L) 37.5 - 51.0 % 05/03/2020 4:43 PM EDT [facility] Blood Venipuncture / Unknown 05/03/2020 4:16 PM EDT 05/03/2020 4:41 PM EDT us Odette Grace MD LAB BLOOD ORDERABLES Final Resul t Performing Organization Address City/[facility]/ZIP Co de Phone Number [facility]
[address] [place] [address], * (ABNORMAL) POC Glucose Once (05/03/2020 11:14 AM EDT) Glucose 251(H) 70 - 130 mg/dL 05/03/2020 11:16 AM EDT [facility] Blood 05/03/2020 11:1 4 AM EDT 05/03/2020 11:16 AM EDT us Odette Grace MD POINT OF CARE TEST ORDERABLES Fi nal Result Performing Organization Address City/[facility]/ZIP Co de Phone Number [facility]
[address] [place] [address], [place] [phone] * Antibody Identification (05/03/2020 9:56 AM EDT) Anti-C ANTI-C 05/03/2020 1:58 PM EDT [facility] Anti-D ANTI-D 05/03/2020 1:58 PM EDT [facility] Blood Venipuncture / Unknown 05/03/2020 9:56 AM EDT 05/03/2020 10:35 AM EDT us Nicole Diggs APRN BLOOD BANK TEST ORDERABLES Fi nal Result [facility]
[address] [place] [address], * Type & Screen (05/03/2020 9:56 AM EDT) ABO Type O 05/03/2020 1:56 PM EDT [facility] RH type Negative 05/03/2020 1:56 PM EDT [facility] Antibody Screen Positive 05/03/2020 1:56 PM EDT [facility] T&S Expiration Date 05/06/2020 11:59:59 PM 05/03/2020 1:56 PM EDT [facility] Blood Venipuncture / Unknown 05/03/2020 9:56 AM EDT 05/03/2020 10:35 AM EDT Nicole Diggs APRN BLOOD BANK TEST ORDERABLES Ed ited Result - Final [facility]
[address] [place] [address], * (ABNORMAL) CBC (No Diff) (05/03/2020 9:55 AM EDT) WBC 9.65 3.40 - 10.80 10*3/mm3 05/03/2020 10:46 AM EDT [facility] RBC 2.42(L) 4.14 - 5.80 10*6/mm3 05/03/2020 10:46 AM EDT [facility] Hemoglobin 7.6(L) 13.0 - 17.7 g/dL 05/03/2020 10:46 AM EDT [facility] Hematocrit 24.0(L) 37.5 - 51.0 % 05/03/2020 10:46 AM EDT [facility] MCV 99.2(H) 79.0 - 97.0 fL 05/03/2020 10:46 AM EDT [facility] MCH 31.4 26.6 - 33.0 pg 05/03/2020 10:46 AM EDT [facility] MCHC 31.7 31.5 - 35.7 g/dL 05/03/2020 10:46 AM EDT [facility] RDW 15.0 12.3 - 15.4 % 05/03/2020 10:46 AM EDT [facility] RDW-SD 53.3 37.0 - 54.0 fl 05/03/2020 10:46 AM EDT [facility] MPV 9.5 6.0 - 12.0 fL 05/03/2020 10:46 AM EDT [facility] Platelets 372 140 - 450 10*3/mm3 05/03/2020 10:46 AM EDT [facility] Blood Venipuncture / Unknown 05/03/2020 9:55 AM EDT 05/03/2020 10:41 AM EDT Nicole Diggs APRN LAB BLOOD ORDERABLES Final Re sult [facility]
[address] [place] [address], * (ABNORMAL) POC Glucose Once (05/03/2020 7:19 AM EDT) Glucose 184(H) 70 - 130 mg/dL 05/03/2020 7:21 AM EDT [facility] Blood 05/03/2020 7:19 AM EDT 05/03/2020 7:21 AM EDT Odette Grace MD POINT OF CARE TEST ORDERABLES Fi nal Result Performing Organization Address City/[facility]/ZIP Co de Phone Number [facility]
[address] [place] [address], [place] [phone] * ECG 12 Lead (05/03/2020 5:07 AM EDT) 05/03/2020 5:07 AM EDT 05/05/2020 9:06 AM EDT Narrative ECG - 05/05/2020 9:06 AM EDT Test Reason : high heart rate Blood Pressure : / mmHG Vent. Rate : 124 BPM ? Atrial Rate : 124 BPM ?? P-R Int : 000 ms ?QRS Dur : 106 ms ?QT Int : 374 ms ? P-R-T Axes : 000 067 036 degrees ?? QTc Int : 537 ms Sinus tachycardia Cannot rule out Inferior infarct , age undetermined Abnormal ECG When compared with ECG of 28-APR-2020 00:20, Rate increased Confirmed by ELISABETH ??JOHNNIE PEREZ () on 05/05/2020 9:06:39 AM Referred By: ? Confirmed By:JOHNNIE BARBER ?? Procedure Note Johnnie Barber MD - 05/05/2020 Test Reason : high heart rate Blood Pressure : / mmHG Vent. Rate : 124 BPM Atrial Rate : 124 BPM P-R Int : 000 ms QRS Dur : 106 ms QT Int : 374 ms P-R-T Axes : 000 067 036 degrees QTc Int : 537 ms Sinus tachycardia Cannot rule out Inferior infarct , age undetermined Abnormal ECG When compared with ECG of 28-APR-2020 00:20, Rate increased Confirmed by JOHNNIE BARBER MD () on 05/05/2020 9:06:39 AM Referred By: Confirmed By:JOHNNIE BARBER MD Nicole Diggs APRN ECG ORDERABLES Final Result ECG * (ABNORMAL) POC Glucose Once (05/02/2020 8:25 PM EDT) Glucose 179(H) 70 - 130 mg/dL 05/02/2020 8:28 PM EDT [facility] Blood 05/02/2020 8:25 PM EDT 05/02/2020 8:28 PM EDT Odette Grace MD POINT OF CARE TEST ORDERABLES Fi nal Result Performing Organization Address [facility]/ZIP Co de Phone Number [facility]
[address] [place] [address], [place] [phone] * (ABNORMAL) POC Glucose Once (05/02/2020 5:20 PM EDT) Glucose 208(H) 70 - 130 mg/dL 05/02/2020 5:32 PM EDT [facility] Blood 05/02/2020 5:20 PM EDT 05/02/2020 5:32 PM EDT Odette Grace MD POINT OF CARE TEST ORDERABLES Fi nal Result Performing Organization Address [facility] de Phone Number [facility]
[address] [place] [address], [place] [phone] * (ABNORMAL) Occult Blood X 1, Stool - Stool, Per Rectum (05/02/2020 12:49 PM EDT) Pathologist [facility] Fecal Occult Blood Positive( A) Negative DISK DIFFUSION 05/02/2020 1:50 PM EDT [facility] Stool Specimen from rectum / Unknown Collection / Unknown 05/02/2020 12:49 PM EDT 05/02/2020 1:01 PM EDT Odette Grace MD BODY FLUIDS AND STOOLS ORDERABLE S Final Result Performing Organization Address [facility]/ZIP Co de Phone Number [facility]
[address] [place] [address], [place] [phone] * Prepare RBC, 2 Units (05/02/2020 12:10 PM EDT) Product Code [id number] [facility] Unit Number [id number] [facility] ABO O [facility] UN[facility] RH NEG [facility] Crossmatch Interpretation Compatible [facility] Dispense Status PT [facility] Blood Expiration Date [facility] Blood Type Barcode 9500 [facility] Product Code [id number] [facility] Unit [facility] [id number] [facility] UN[facility] ABO O [facility] UNIT RH NEG [facility] Crossmatch Interpretation Compatible [facility] Dispense Status PT [facility] Blood Expiration Date [facility] Blood Type Barcode 9500 [facility] Other Topography unknown / Unknown 04/30/2020 2:32 PM EDT Hilton Hamm MD BLOOD BANK PRODUCT ORD ERABLES Edited Result - Final [facility]
[address] [place] [address], * (ABNORMAL) POC Glucose Once (05/02/2020 11:52 AM EDT) Glucose 259(H) 70 - 130 mg/dL 05/02/2020 12:11 PM EDT [facility] Blood 05/02/2020 11:5 2 AM EDT 05/02/2020 12:11 PM EDT Odette Grace MD POINT OF CARE TEST ORDERABLES Fi nal Result [facility]
[address] [place] [address], * (ABNORMAL) POC Glucose Once (05/02/2020 8:10 AM EDT) Glucose 167(H) 70 - 130 mg/dL 05/02/2020 8:21 AM EDT [facility] Blood 05/02/2020 8:10 AM EDT 05/02/2020 8:21 AM EDT us Odette Grace MD POINT OF CARE TEST ORDERABLES Fi nal Result Performing Organization Address City/[facility]/ZIP Co de Phone Number [facility]
[address] [place] [address], [place] [phone] * (ABNORMAL) POC Glucose Once (05/01/2020 8:56 PM EDT) Glucose 239(H) 70 - 130 mg/dL 05/01/2020 9:02 PM EDT [facility] Blood 05/01/2020 8:56 PM EDT 05/01/2020 9:02 PM EDT us Odette Grace MD POINT OF CARE TEST ORDERABLES Fi nal Result Performing Organization Address [facility] Co de Phone Number [facility]
[address] [place] [address], [place] [phone] * (ABNORMAL) POC Glucose Once (05/01/2020 3:56 PM EDT) Glucose 234(H) 70 - 130 mg/dL 05/01/2020 3:58 PM EDT [facility] Blood 05/01/2020 3:56 PM EDT 05/01/2020 3:58 PM EDT us Odette Grace MD POINT OF CARE TEST ORDERABLES Fi nal Result Performing Organization Address [facility] Co de Phone Number [facility]
[address] [place] [address], [place] [phone] * (ABNORMAL) POC Glucose Once (05/01/2020 11:42 AM EDT) Glucose 177(H) 70 - 130 mg/dL [facility] Blood 05/01/2020 11:4 2 AM EDT 05/01/2020 11:55 AM EDT us Odette Grace MD POINT OF CARE TEST ORDERABLES Fi nal Result Performing Organization Address City/[facility]/ZIP Co de Phone Number [facility]
[address] [place] [address], * Transfuse RBC Infuse Each Unit Over: 3.5H (05/01/2020 10:57 AM EDT) us Odette Grace MD BLOOD TRANSFUSION ORDERABLES Fin al Result * Transfuse RBC, 1 Units Infuse Each Unit Over: 3.5H (05/01/2020 10:57 AM EDT) us Odette Grace MD BLOOD TRANSFUSION ORDERABLES Fin al Result * Transfuse RBC Infuse Each Unit Over: 3.5H (05/01/2020 10:23 AM EDT) us Dewey Betancourt MD BLOOD TRANSFUSION ORDERABLES F inal Result * Vancomycin, Random (05/01/2020 9:07 AM EDT) Vancomycin Random 21.60 5.00 - 40.00 mcg/mL 05/01/2020 11:16 AM EDT [facility] Blood Line / Unknown 05/01/2020 9: 07 AM EDT 05/01/2020 9:17 AM EDT Germán Resendiz [facility] BLOOD ORDERABLES Final Resul t Performing Organization Address City/[facility]/ZIP Co de Phone Number [facility]
[address] [place] [address], * (ABNORMAL) Basic Metabolic Panel (05/01/2020 9:07 AM EDT) Glucose 195(H) 65 - 99 mg/dL 05/01/2020 9:43 AM EDT [facility] BUN 81(H) 6 - 20 mg/dL 05/01/2020 9:43 AM EDT [facility] Creatinine 10.03(H) 0.76 - 1.27 mg/dL 05/01/2020 9:43 AM EDT [facility] Sodium 134(L) 136 - 145 mmol/L 05/01/2020 9:43 AM EDT [facility] Potassium 4.1 3.5 - 5.2 mmol/L 05/01/2020 9:43 AM EDT [facility] Chloride 95(L) 98 - 107 mmol/L 05/01/2020 9:43 AM EDT [facility] CO2 20.0(L) 22.0 - 29.0 mmol/L 05/01/2020 9:43 AM EDT [facility] Calcium 8.6 8.6 - 10.5 mg/dL 05/01/2020 9:43 AM EDT [facility] eGFR Amer 05/01/2020 9:43 AM EDT [facility] Comment:<15 Indicative of ki dney failure. eGFR Non Amer 6(L) >60 mL/min/1.7 3 05/01/2020 9:43 AM EDT [facility] Comment:<15 Indicative of ki dney failure. BUN/Creatinine Ratio 8.1 7.0 - 25.0 05/01/2020 9:43 AM EDT [facility] Anion Gap 19.0(H) 5.0 - 15.0 mmol/L 05/01/2020 9:43 AM EDT [facility] Blood Line / Unknown 05/01/2020 9: 07 AM EDT 05/01/2020 9:17 AM EDT Narrative [facility] - 05/01/2020 9:43 AM EDT GFR Normal >60 Chronic Kidney Disease <60 Kidney Failure <15 us Odette Grace MD LAB BLOOD ORDERABLES Final Resul t [facility]
[address] [place] [address], * (ABNORMAL) CBC (No Diff) (05/01/2020 9:07 AM EDT) WBC 7.58 3.40 - 10.80 10*3/mm3 05/01/2020 9:25 AM EDT [facility] RBC 1.73(L) 4.14 - 5.80 10*6/mm3 05/01/2020 9:25 AM EDT [facility] Hemoglobin 5.5(LL) 13.0 - 17.7 g/dL 05/01/2020 9:25 AM EDT [facility] Hematocrit 17.2(LL) 37.5 - 51.0 % 05/01/2020 9:25 AM EDT [facility] MCV 99.4(H) 79.0 - 97.0 fL 05/01/2020 9:25 AM EDT [facility] MCH 31.8 26.6 - 33.0 pg 05/01/2020 9:25 AM EDT [facility] MCHC 32.0 31.5 - 35.7 g/dL 05/01/2020 9:25 AM EDT [facility] RDW 13.5 12.3 - 15.4 % 05/01/2020 9:25 AM EDT [facility] RDW-SD 47.9 37.0 - 54.0 fl 05/01/2020 9:25 AM EDT [facility] MPV 9.6 6.0 - 12.0 fL 05/01/2020 9:25 AM EDT [facility] Platelets 269 140 - 450 10*3/mm3 05/01/2020 9:25 AM EDT [facility] Blood Line / Unknown 05/01/2020 9: 07 AM EDT 05/01/2020 9:17 AM EDT us Odette Grace MD LAB BLOOD ORDERABLES Final Resul t [facility]
[address] [place] [address], * (ABNORMAL) POC Glucose Once (05/01/2020 7:45 AM EDT) Glucose 214(H) 70 - 130 mg/dL 05/01/2020 7:47 AM EDT [facility] Blood 05/01/2020 7:45 AM EDT 05/01/2020 7:47 AM EDT us Odette Grace MD POINT OF CARE TEST ORDERABLES Fi nal Result Performing Organization Address City/[facility]/ZIP Co de Phone Number [facility]
[address] [place] [address], [place] [phone] * (ABNORMAL) POC Glucose Once (04/30/2020 8:32 PM EDT) Glucose 284(H) 70 - 130 mg/dL 04/30/2020 8:33 PM EDT [facility] Blood 04/30/2020 8:32 PM EDT 04/30/2020 8:33 PM EDT us Odette Grace MD POINT OF CARE TEST ORDERABLES Fi nal Result Performing Organization Address [facility] Co de Phone Number [facility]
[address] [place] [address], [place] [phone] * (ABNORMAL) POC Glucose Once (04/30/2020 4:19 PM EDT) Glucose 243(H) 70 - 130 mg/dL 04/30/2020 4:22 PM EDT [facility] Blood 04/30/2020 4:19 PM EDT 04/30/2020 4:22 PM EDT us Odette Grace MD POINT OF CARE TEST ORDERABLES Fi nal Result Performing Organization Address City/[facility] Co de Phone Number [facility]
[address] [place] [address], [place] [phone] * Antibody Identification (04/30/2020 2:26 PM EDT) Anti-C ANTI-C 04/30/2020 6:53 PM EDT [facility] Anti-D ANTI-D 04/30/2020 6:53 PM EDT [facility] Blood Venipuncture / Unknown 04/30/2020 2:26 PM EDT 04/30/2020 2:32 PM EDT Odette Grace MD BLOOD BANK TEST ORDERABLES Final Result [facility]
[address] [place] [address], * Type & Screen (04/30/2020 2:26 PM EDT) ABO Type O 04/30/2020 3:24 PM EDT [facility] RH type Negative 04/30/2020 3:24 PM EDT [facility] Antibody Screen Positive 04/30/2020 3:24 PM EDT [facility] T&S Expiration Date 05/03/2020 11:59:59 PM 04/30/2020 3:24 PM EDT [facility] Blood Venipuncture / Unknown 04/30/2020 2:26 PM EDT 04/30/2020 2:32 PM EDT Odtete Grace MD BLOOD BANK TEST ORDERABLES Edite d Result - Final [facility]
[address] [place] [address], * (ABNORMAL) POC Glucose Once (04/30/2020 11:16 AM EDT) Glucose 254(H) 70 - 130 mg/dL 04/30/2020 11:34 AM EDT [facility] Blood 04/30/2020 11:1 6 AM EDT 04/30/2020 11:34 AM EDT us Odette Grace MD POINT OF CARE TEST ORDERABLES Fi nal Result Performing Organization Address [facility] de Phone Number [facility]
[address] [place] [address], [place] [phone] * (ABNORMAL) POC Glucose Once (04/30/2020 8:19 AM EDT) Glucose 222(H) 70 - 130 mg/dL 04/30/2020 8:26 AM EDT [facility] Blood 04/30/2020 8:19 AM EDT 04/30/2020 8:26 AM EDT us Odette Grace MD POINT OF CARE TEST ORDERABLES Fi nal Result Performing Organization Address [facility] de Phone Number [facility]
[address] [place] [address], [place] [phone] * ABO RH Specimen Verification (04/30/2020 7:59 AM EDT) ABO Type O 04/30/2020 3:29 PM EDT [facility] RH type Negative 04/30/2020 3:29 PM EDT [facility] Blood Venipuncture / Unknown 04/30/2020 7:59 AM EDT 04/30/2020 3:03 PM EDT us Odette Grace MD BLOOD BANK TEST ORDERABLES Final Result Performing Organization Address [facility] de Phone Number [facility]
[address] [place] [address], [place] [phone] * (ABNORMAL) Phosphorus (04/30/2020 7:59 AM EDT) Phosphorus 5.7(H) 2.5 - 4.5 mg/dL 04/30/2020 9:33 AM EDT [facility] Blood Venipuncture / Unknown 04/30/2020 7:59 AM EDT 04/30/2020 8:59 AM EDT Yinka Garnica MD LAB BLOOD ORDERABLES Final Result [facility]
[address] [place] [address], * (ABNORMAL) CBC (No Diff) (04/30/2020 7:59 AM EDT) WBC 9.44 3.40 - 10.80 10*3/mm3 04/30/2020 9:09 AM EDT [facility] RBC 1.98(L) 4.14 - 5.80 10*6/mm3 04/30/2020 9:09 AM EDT [facility] Hemoglobin 6.3(LL) 13.0 - 17.7 g/dL 04/30/2020 9:09 AM EDT [facility] Hematocrit 19.6(LL) 37.5 - 51.0 % 04/30/2020 9:09 AM EDT [facility] MCV 99.0(H) 79.0 - 97.0 fL 04/30/2020 9:09 AM EDT [facility] MCH 31.8 26.6 - 33.0 pg 04/30/2020 9:09 AM EDT [facility] MCHC 32.1 31.5 - 35.7 g/dL 04/30/2020 9:09 AM EDT [facility] RDW 13.4 12.3 - 15.4 % 04/30/2020 9:09 AM EDT [facility] RDW-SD 47.2 37.0 - 54.0 fl 04/30/2020 9:09 AM EDT [facility] MPV 9.7 6.0 - 12.0 fL 04/30/2020 9:09 AM EDT [facility] Platelets 292 140 - 450 10*3/mm3 04/30/2020 9:09 AM EDT [facility] Blood Venipuncture / Unknown 04/30/2020 7:59 AM EDT 04/30/2020 8:59 AM EDT Yinka Garnica MD LAB BLOOD ORDERABLES Final Result [facility]
[address] [place] [address], * (ABNORMAL) Comprehensive Metabolic Panel (04/30/2020 7:59 AM EDT) Glucose 204(H) 65 - 99 mg/dL 04/30/2020 9:33 AM EDT [facility] BUN 64(H) 6 - 20 mg/dL 04/30/2020 9:33 AM EDT [facility] Creatinine 7.69(H) 0.76 - 1.27 mg/dL 04/30/2020 9:33 AM EDT [facility] Sodium 131(L) 136 - 145 mmol/L 04/30/2020 9:33 AM EDT [facility] Potassium 4.0 3.5 - 5.2 mmol/L 04/30/2020 9:33 AM EDT [facility] Chloride 92(L) 98 - 107 mmol/L 04/30/2020 9:33 AM EDT [facility] CO2 22.0 22.0 - 29.0 mmol/L 04/30/2020 9:33 AM EDT [facility] Calcium 8.9 8.6 - 10.5 mg/dL 04/30/2020 9:33 AM EDT [facility] Total Protein 6.1 6.0 - 8.5 g/dL 04/30/2020 9:33 AM EDT [facility] Albumin 3.30(L) 3.50 - 5.20 g/dL 04/30/2020 9:33 AM EDT [facility] ALT (SGPT) 26 1 - 41 U/L 04/30/2020 9:33 AM EDT [facility] AST (SGOT) 16 1 - 40 U/L 04/30/2020 9:33 AM EDT [facility] Alkaline Phosphatase 71 39 - 117 U/L 04/30/2020 9:33 AM EDT [facility] Total Bilirubin 0.2 0.0 - 1.2 mg/dL 04/30/2020 9:33 AM EDT [facility] eGFR Non Amer 8(L) >60 mL/min/1.7 3 04/30/2020 9:33 AM EDT [facility] Comment:<15 Indicative of ki dney failure. eGFR Amer 04/30/2020 9:33 AM EDT [facility] Comment:<15 Indicative of ki dney failure. Globulin 2.8 gm/dL 04/30/2020 9:33 AM EDT [facility] A/G Ratio 1.2 g/dL 04/30/2020 9:33 AM EDT [facility] BUN/Creatinine Ratio 8.3 7.0 - 25.0 04/30/2020 9:33 AM EDT [facility] Anion Gap 17.0(H) 5.0 - 15.0 mmol/L 04/30/2020 9:33 AM EDT [facility] Blood Venipuncture / Unknown 04/30/2020 7:59 AM EDT 04/30/2020 8:59 AM EDT Narrative [facility] - 04/30/2020 9:33 AM EDT GFR Normal >60 Chronic Kidney Disease <60 Kidney Failure <15 us Yinka Garinca MD LAB BLOOD ORDERABLES Final Result [facility]
[address] [place] [address], * (ABNORMAL) Ferritin (04/30/2020 7:59 AM EDT) Ferritin 1,539.00(H ) 30.00 - 400.00 ng/mL 04/30/2020 9:34 AM EDT [facility] Blood Venipuncture / Unknown 04/30/2020 7:59 AM EDT 04/30/2020 8:59 AM EDT Narrative [facility] - 04/30/2020 9:34 AM EDT Results may be falsely decreased if patient taking Biotin. Yinka Garnica MD LAB BLOOD ORDERABLES Final Result Performing Organization Address [facility] Co de Phone Number [facility]
[address] [place] [address], * (ABNORMAL) Iron Profile (04/30/2020 7:59 AM EDT) Iron 36(L) 59 - 158 mcg/dL 04/30/2020 9:33 AM EDT [facility] Iron Saturation (TSAT) 19(L) 20 - 50 % 04/30/2020 9:33 AM EDT [facility] Transferrin 127(L) 200 - 360 mg/dL 04/30/2020 9:33 AM EDT [facility] TIBC 189(L) 298 - 536 mcg/dL 04/30/2020 9:33 AM EDT [facility] Blood Venipuncture / Unknown 04/30/2020 7:59 AM EDT 04/30/2020 8:59 AM EDT Yinka Garnica MD LAB BLOOD ORDERABLES Final Result Performing Organization Address [facility] Co de Phone Number [facility]
[address] [place] [address], * (ABNORMAL) POC Glucose Once (04/29/2020 9:09 PM EDT) Glucose 263(H) 70 - 130 mg/dL 04/29/2020 9:10 PM EDT [facility] Blood 04/29/2020 9:09 PM EDT 04/29/2020 9:10 PM EDT Estrella Tai MD POINT OF CARE TEST ORDERABLE S Final Result Performing Organization Address City/[facility]/ZIP Co de Phone Number [facility]
[address] [place] [address], [place] [phone] * (ABNORMAL) POC Glucose Once (04/29/2020 7:36 PM EDT) Glucose 240(H) 70 - 130 mg/dL 04/29/2020 7:38 PM EDT [facility] Blood 04/29/2020 7:36 PM EDT 04/29/2020 7:38 PM EDT Estrella Tai MD POINT OF CARE TEST ORDERABLE S Final Result Performing Organization Address [facility] de Phone Number [facility]
[address] [place] [address], * FL C Arm During Surgery (04/29/2020 7:16 PM EDT) Anatomical Region Laterality Modality Body, Other N/A Radio Fluoroscop y 04/29/2020 8:12 PM EDT Impressions 04/30/2020 6:56 PM EDT Intraoperative fluoroscopy was utilized during lumbar laminectomy. DICTATED: ?? 04/29/2020 EDITED/ls : ?? 04/29/2020 ?? This report was finalized on 04/30/2020 6:[address] Elpidio Dyer. 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 Lumbar laminectomy. TECHNIQUE: Intraoperative fluoroscopy for improved localization and treatment planning. COMPARISON: None. FINDINGS: Intraoperative fluoroscopy with total fluoroscopic time usage 10 seconds and 1 image saved during lumbar laminectomy. 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 Lumbar laminectomy. TECHNIQUE: Intraoperative fluoroscopy for improved localization and treatment planning. COMPARISON: None. FINDINGS: Intraoperative fluoroscopy with total fluoroscopic time usage 10 seconds and 1 image saved during lumbar laminectomy. IMPRESSION: Intraoperative fluoroscopy was utilized during lumbar laminectomy. DICTATED: 04/29/2020 EDITED/ls : 04/29/2020 This report was finalized on 04/30/2020 6:[address] Elpidio Dyer. Yinka Garnica MD IMG FLUOROSCOPY ORDERABLES Final Result * AFB Culture - Tissue, Back, Lower (04/29/2020 7:15 PM EDT) AFB Culture No AFB isolated at 6 weeks 06/10/2020 8:00 PM EDT [facility] AFB Stain No acid fast bacilli seen on concentrated smear 06/10/2020 8:00 PM EDT [facility] Tissue Lower back structure / Unknown 04/29/2020 7:15 PM EDT 04/29/2020 7:51 PM EDT Yinka Garnica MD MICROBIOLOGY - GENERAL ORD ERABLES Final Result [facility]
[address] [place] [address], * Tissue / Bone Culture - Tissue, Back, Lower (04/29/2020 7:15 PM EDT) Tissue Culture No growth at 3 days GREGORY 05/02/2020 8:57 AM EDT [facility] Gram Stain Rare (1+) WBCs seen 05/02/2020 8:57 AM EDT [facility] Gram Stain No organisms seen 05/02/2020 8:57 AM EDT [facility] Tissue Lower back structure / Unknown 04/29/2020 7:15 PM EDT 04/29/2020 7:51 PM EDT Yinka Garnica MD MICROBIOLOGY - GENERAL ORD ERABLES Final Result [facility]
[address] [place] [address], [facility]
[address] [place] [address], * Fungus Culture - Tissue, Back, Lower (04/29/2020 7:15 PM EDT) Fungus Culture No fungus isolated at 6 weeks 06/10/2020 8:00 PM EDT [facility] Tissue Lower back structure / Unknown 04/29/2020 7:15 PM EDT 04/29/2020 7:51 PM EDT Yinka Garnica MD MICROBIOLOGY - GENERAL ORD ERABLES Final Result Performing Organization Address City/[facility]/ZIP Co de Phone Number [facility]
[address] [place] [address], * Anaerobic Culture - Tissue, Back, Lower (04/29/2020 7:15 PM EDT) Anaerobic Culture No anaerobes isolated at 5 days 05/04/2020 8:58 AM EDT [facility] Tissue Lower back structure / Unknown 04/29/2020 7:15 PM EDT 04/29/2020 7:51 PM EDT Yinka Garnica MD MICROBIOLOGY - GENERAL ORD ERABLES Final Result [facility]
[address] [place] [address], * (ABNORMAL) Wound Culture - Wound, Spine, Lumbar (04/29/2020 6:43 PM EDT) Wound Culture Rare Staphylococcus epidermidis(A) GREGORY 06/01/2020 10:43 AM EDT [facility] Gram Stain No WBCs or organisms seen 06/01/2020 10:43 AM EDT [facility] Wound Lumbar spine structure / Unknown 04/29/2020 6:43 PM EDT 04/29/2020 7:59 PM EDT Narrative Organism Antibiotic Method Susceptibility Staphylococcus epidermidis Clindamycin GREGORY <=0.12 ug/ml: Susceptible Staphylococcus epidermidis Inducible Cli ndamycin Resistance GREGORY NEG ug/ml: Negative Staphylococcus epidermidis Levofloxacin GREGORY <=0.12 ug/ml: Susceptible Comment: Appended report. These results have been appended to a previously final verified report. Staphylococcus species may develop resistance during prolonged therapy with quinolones. ??Isolates that are initially susceptible may become resistant within three to four days after initiation of therapy. Testing of repeat isolates may be warranted. Staphylococcus epidermidis Linezolid GREGORY 1 ug/ml: Susceptible Comment:Appended rep ort. These results have been appended to a previously final verified report. Staphylococcus epidermidis Oxacillin GREGORY >=4 ug/ml: Resistant Staphylococcus epidermidis Rifampin GREGORY <=0.5 ug/ml: Susceptible Comment:Appended rep ort. These results have been appended to a previously final verified report. Staphylococcus epidermidis Tetracycline GREGORY <=1 ug/ml: Susceptible Staphylococcus epidermidis Trimethoprim + Sulfamethoxazole GREGORY <=10 ug/ml: Susceptible Staphylococcus epidermidis Vancomycin GREGORY 2 ug/ml: Susceptible Comment:This isolate does no t demonstrate inducible clindamycin resistance in vitro. Yinka Garnica MD MICROBIOLOGY - GENERAL ORD ERABLES Edited Result - Final [facility]
[address] [place] [address], [place] [phone] [facility]
[address] [place] [address], [place] [phone] * Anaerobic Culture - Wound, Spine, Lumbar (04/29/2020 6:43 PM EDT) Anaerobic Culture No anaerobes isolated at 5 days 05/04/2020 8:58 AM EDT [facility] Wound Lumbar spine structure / Unknown 04/29/2020 6:43 PM EDT 04/29/2020 7:59 PM EDT Yinka Garnica MD MICROBIOLOGY - GENERAL ORD ERABLES Final Result [facility]
[address] [place] [address], * (ABNORMAL) Hemoglobin & Hematocrit, Blood (04/29/2020 5:46 PM EDT) Hemoglobin 7.4(L) 13.0 - 17.7 g/dL 04/29/2020 5:47 PM EDT [facility] Hematocrit 23.0(L) 37.5 - 51.0 % 04/29/2020 5:47 PM EDT [facility] Blood Line / Unknown 04/29/2020 5: 46 PM EDT 04/29/2020 5:46 PM EDT Santy Truong MD LAB BLOOD ORDERABLES Final Re sult [facility]
[address] [place] [address], * (ABNORMAL) Basic Metabolic Panel (04/29/2020 3:33 PM EDT) Glucose 127(H) 65 - 99 mg/dL 04/29/2020 4:26 PM EDT [facility] BUN 48(H) 6 - 20 mg/dL 04/29/2020 4:26 PM EDT [facility] Creatinine 5.03(H) 0.76 - 1.27 mg/dL 04/29/2020 4:26 PM EDT [facility] Sodium 132(L) 136 - 145 mmol/L 04/29/2020 4:26 PM EDT [facility] Potassium 4.2 3.5 - 5.2 mmol/L 04/29/2020 4:26 PM EDT [facility] Comment:Specimen hemolyzed. Results may be affected. Chloride 95(L) 98 - 107 mmol/L 04/29/2020 4:26 PM EDT [facility] CO2 19.0(L) 22.0 - 29.0 mmol/L 04/29/2020 4:26 PM EDT [facility] Calcium 9.0 8.6 - 10.5 mg/dL 04/29/2020 4:26 PM EDT [facility] eGFR Amer 04/29/2020 4:26 PM EDT [facility] Comment:<15 Indicative of ki dney failure. eGFR Non Amer 12(L) >60 mL/min/1.7 3 04/29/2020 4:26 PM EDT [facility] Comment:<15 Indicative of ki dney failure. BUN/Creatinine Ratio 9.5 7.0 - 25.0 04/29/2020 4:26 PM EDT [facility] Anion Gap 18.0(H) 5.0 - 15.0 mmol/L 04/29/2020 4:26 PM EDT [facility] Blood Venipuncture / Unknown 04/29/2020 3:33 PM EDT 04/29/2020 3:40 PM EDT Narrative [facility] - 04/29/2020 4:26 PM EDT GFR Normal >60 Chronic Kidney Disease <60 Kidney Failure <15 us Santy Truong MD LAB BLOOD ORDERABLES Final Re sult [facility]
[address] [place] [address], * (ABNORMAL) POC Glucose Once (04/29/2020 8:07 AM EDT) [facility] Glucose 213(H) 70 - 130 mg/dL 04/29/2020 8:18 AM EDT [facility] Blood 04/29/2020 8:07 AM EDT 04/29/2020 8:18 AM EDT Estrella Tai MD POINT OF CARE TEST ORDERABLE S Final Result Performing Organization Address [facility] Co de Phone Number [facility]
[address] [place] [address], * Vancomycin, Random (04/29/2020 6:18 AM EDT) [facility] Vancomycin Random 21.50 5.00 - 40.00 mcg/mL 04/29/2020 7:04 AM EDT [facility] Blood Venipuncture / Unknown 04/29/2020 6:18 AM EDT 04/29/2020 6:34 AM EDT Adam Colindres PharmD LAB BLOOD ORDERABLES Final Re sult Performing Organization Address [facility] de Phone Number [facility]
[address] [place] [address], * (ABNORMAL) Cyclosporine Level (04/29/2020 6:18 AM EDT) [facility] Cyclosporine 26(L) 100 - 400 ng/mL 05/02/2020 4:09 PM EDT [facility] Comment: ?Therapeutic: ? Renal Transplant ?? 100 - 250 ? Liver Transplant ?? 100 - 400 ? Cardiac Transplant 100 - 400 ? Bone Marrow ?200 - 300 ?Detection Limit = ??25 Assay performed by Liquid Chromatography Tandem Mass Spectrometry (LC-MS/MS) If preferred testing methodology for Cyclosporine is Liquid Chromatography Tandem Mass Spectrometry (LC-MS/MS) please use test code [id number]. ??For testing performed by Immunoassay, please use test code [id number]. This test was developed and its performance characteristics determined by [facility]. It has not been cleared or approved by the Food and Drug Administration. Blood Venipuncture / Unknown 04/29/2020 6:18 AM EDT 04/29/2020 6:35 AM EDT Narrative [facility] - 05/02/2020 4:09 PM EDT Performed at: ??[address] ??[id number] And Drying Supervisor Cooking Casing: Jeny Pereyra MD, Phone: ??[phone] Glenn Kay MD LAB BLOOD ORDERABLES Final Resul t Performing Organization Address [facility] Co de Phone Number [facility] [address] [place] [address], * Magnesium (04/29/2020 6:18 AM EDT) Magnesium 2.3 1.6 - 2.6 mg/dL 04/29/2020 7:06 AM EDT [facility] Blood Venipuncture / Unknown 04/29/2020 6:18 AM EDT 04/29/2020 6:34 AM EDT Keara Berg DO LAB BLOOD ORDERABLES Final Res ult Performing Organization Address [facility] Co de Phone Number [facility]
[address] [place] [address], [place] [phone] * (ABNORMAL) CBC Auto Differential (04/29/2020 6:18 AM EDT) WBC 11.27(H) 3.40 - 10.80 10*3/mm3 04/29/2020 7:23 AM EDT [facility] RBC 2.42(L) 4.14 - 5.80 10*6/mm3 04/29/2020 7:23 AM EDT [facility] Hemoglobin 7.8(L) 13.0 - 17.7 g/dL 04/29/2020 7:23 AM EDT [facility] Hematocrit 23.9(L) 37.5 - 51.0 % 04/29/2020 7:23 AM EDT [facility] MCV 98.8(H) 79.0 - 97.0 fL 04/29/2020 7:23 AM EDT [facility] MCH 32.2 26.6 - 33.0 pg 04/29/2020 7:23 AM EDT [facility] MCHC 32.6 31.5 - 35.7 g/dL 04/29/2020 7:23 AM EDT [facility] RDW 13.0 12.3 - 15.4 % 04/29/2020 7:23 AM EDT [facility] RDW-SD 46.5 37.0 - 54.0 fl 04/29/2020 7:23 AM EDT [facility] MPV 9.6 6.0 - 12.0 fL 04/29/2020 7:23 AM EDT [facility] Platelets 285 140 - 450 10*3/mm3 04/29/2020 7:23 AM EDT [facility] Neutrophil % 63.2 42.7 - 76.0 % 04/29/2020 7:23 AM EDT [facility] Lymphocyte % 14.0(L) 19.6 - 45.3 % 04/29/2020 7:23 AM EDT [facility] Monocyte % 14.5(H) 5.0 - 12.0 % 04/29/2020 7:23 AM EDT [facility] Eosinophil % 2.0 0.3 - 6.2 % 04/29/2020 7:23 AM EDT [facility] Basophil % 0.4 0.0 - 1.5 % 04/29/2020 7:23 AM EDT [facility] Immature Grans % 5.9(H) 0.0 - 0.5 % 04/29/2020 7:23 AM EDT [facility] Neutrophils, Absolute 7.13(H) 1.70 - 7.00 10*3/mm3 04/29/2020 7:23 AM EDT [facility] Lymphocytes, Absolute 1.58 0.70 - 3.10 10*3/mm3 04/29/2020 7:23 AM EDT [facility] Monocytes, Absolute 1.63(H) 0.10 - 0.90 10*3/mm3 04/29/2020 7:23 AM EDT [facility] Eosinophils, Absolute 0.22 0.00 - 0.40 10*3/mm3 04/29/2020 7:23 AM EDT [facility] Basophils, Absolute 0.05 0.00 - 0.20 10*3/mm3 04/29/2020 7:23 AM EDT [facility] Immature Grans, Absolute 0.66(H) 0.00 - 0.05 10*3/mm3 04/29/2020 7:23 AM EDT [facility] nRBC 0.4(H) 0.0 - 0.2 /100 WBC 04/29/2020 7:23 AM EDT [facility] Blood Venipuncture / Unknown 04/29/2020 6:18 AM EDT 04/29/2020 6:34 AM EDT Narrative [facility] - 04/29/2020 7:23 AM EDT Appended report. These results have been appended to a previously verified report. us eKara Berg DO LAB BLOOD ORDERABLES Final Res ult [facility]
[address] [place] [address], * (ABNORMAL) Comprehensive Metabolic Panel (04/29/2020 6:18 AM EDT) Glucose 196(H) 65 - 99 mg/dL 04/29/2020 7:08 AM EDT [facility] BUN 98(H) 6 - 20 mg/dL 04/29/2020 7:08 AM [facility] Creatinine 10.55(H) 0.76 - 1.27 mg/dL 04/29/2020 7:08 AM EDT [facility] Sodium 134(L) 136 - 145 mmol/L 04/29/2020 7:08 AM [facility] Potassium 4.1 3.5 - 5.2 mmol/L 04/29/2020 7:08 AM [facility] Chloride 92(L) 98 - 107 mmol/L 04/29/2020 7:08 AM [facility] CO2 20.0(L) 22.0 - 29.0 mmol/L 04/29/2020 7:08 AM [facility] Calcium 9.1 8.6 - 10.5 mg/dL 04/29/2020 7:08 AM [facility] Total Protein 6.3 6.0 - 8.5 g/dL 04/29/2020 7:08 AM [facility] Albumin 3.50 3.50 - 5.20 g/dL 04/29/2020 7:08 AM [facility] ALT (SGPT) 33 1 - 41 U/L 04/29/2020 7:08 AM [facility] AST (SGOT) 17 1 - 40 U/L 04/29/2020 7:08 AM [facility] Alkaline Phosphatase 82 39 - 117 U/L 04/29/2020 7:08 AM T [facility] Total Bilirubin 0.2 0.0 - 1.2 mg/dL 04/29/2020 7:08 AM [facility] eGFR Non Amer 5(L) >60 mL/min/1. 73 04/29/2020 7:08 AM T [facility] Comment:<15 Indicative of ki dney failure. eGFR Amer 04/29/2020 7:08 AM EDT [facility] Comment:<15 Indicative of ki dney failure. Globulin 2.8 gm/dL 04/29/2020 7:08 AM EDT [facility] A/G Ratio 1.3 g/dL 04/29/2020 7:08 AM EDT [facility] BUN/Creatinine Ratio 9.3 7.0 - 25.0 04/29/2020 7:08 AM EDT [facility] Anion Gap 22.0(H) 5.0 - 15.0 mmol/L 04/29/2020 7:08 AM EDT [facility] Blood Venipuncture / Unknown 04/29/2020 6:18 AM EDT 04/29/2020 6:34 AM EDT [facility] - 04/29/2020 7:08 AM EDT GFR Normal >60 Chronic Kidney Disease <60 Kidney Failure <15 Keara Berg DO LAB BLOOD ORDERABLES Final Res ult [facility]
[address] [place] [address], * MRSA Screen, PCR (Inpatient) - Swab, Nares (04/29/2020 1:50 AM EDT) MRSA PCR Negative Negative [employer] 04/29/2020 9:12 AM EDT [facility] Swab Anterior nares swab / Unknown Collection / Unknown 04/29/2020 1:50 AM EDT 04/29/2020 6:29 AM EDT [facility] - 04/29/2020 9:12 AM EDT MRSA Negative Keara Berg DO MICROBIOLOGY - GENERAL ORDERAB LES Final Result [facility]
[address] [place] [address], * Urinalysis, Microscopic Only - Urine, Clean Catch (04/29/2020 1:44 AM EDT) RBC, UA 0-2 None Seen, 0-2 /HPF 04/29/2020 3:16 AM EDT [facility] WBC, UA 0-2 None Seen, 0-2 /HPF 04/29/2020 3:16 AM EDT [facility] Bacteria, UA Trace None Seen, Trace /HPF 04/29/2020 3:16 AM EDT [facility] Squamous Epithelial Cells, UA 0-2 None Seen, 0-2 /HPF 04/29/2020 3:16 AM EDT [facility] Hyaline Casts, UA 0-6 0 - 6 /LPF 04/29/2020 3:16 AM EDT [facility] Methodology Manual Light Microscopy 04/29/2020 3:16 AM EDT [facility] Urine Urine specimen collection, clean catch / Unknown Collection / Unknown 04/29/2020 1:44 AM EDT 04/29/2020 1:53 AM EDT Keara Berg DO URINE ORDERABLES Final Result [facility]
[address] [place] [address], * (ABNORMAL) Urine Drug Screen - Urine, Clean Catch (04/29/2020 1:44 AM EDT) THC, Screen, Urine Negative Negative 2019 2:17 AM EDT [facility] Phencyclidine (PCP), Urine Negative Negative 04/29/2020 2:17 AM EDT [facility] Cocaine Screen, Urine Negative Negative 04/29/2020 2:17 AM EDT [facility] Methamphetamine, Ur Negative Negative 04/29/2020 2:17 AM EDT [facility] Opiate Screen Positive(A) Negative 04/29/2020 2:17 AM EDT [facility] Amphetamine Screen, Urine Negative Negative 04/29/2020 2:17 AM EDT [facility] Benzodiazepine Screen, Urine Positive(A) Negative 04/29/2020 2:17 AM T [facility] Tricyclic Antidepressants Screen Positive(A) Negative 04/29/2020 2:17 AM EDT [facility] Methadone Screen, Urine Negative Negative 04/29/2020 2:17 AM T [facility] Barbiturates Screen, Urine Negative Negative 04/29/2020 2:17 AM T [facility] Oxycodone Screen, Urine Positive(A) Negative 04/29/2020 2:17 AM T [facility] Propoxyphene Screen Negative Negative 04/29/2020 2:17 AM [facility] Buprenorphine, Screen, Urine Negative Negative 04/29/2020 2:17 AM [facility] Urine Urine specimen collection, clean catch / Unknown Collection / Unknown 04/29/2020 1:44 AM EDT 04/29/2020 1:53 AM EDT [facility] - 04/29/2020 2:17 AM EDT Cutoff For Drugs Screened: Amphetamines ? 500 ng/ml Barbiturates ? 200 ng/ml Benzodiazepines ?150 ng/ml Cocaine ?150 ng/ml Methadone ?200 ng/ml Opiates ?100 ng/ml Phencyclidine ? 25 ng/ml THC ? 50 ng/ml Methamphetamine ?500 ng/ml Tricyclic Antidepressants ??300 ng/ml Oxycodone ?100 ng/ml Propoxyphene ? 300 ng/ml Buprenorphine ? 10 ng/ml The normal value for all drugs tested is negative. This report includes unconfirmed screening results, with the cutoff values listed, to be used for medical treatment purposes only. ??Unconfirmed results must not be used for non-medical purposes such as employment or legal testing. ??Clinical consideration should be applied to any drug of abuse test, particularly when unconfirmed results are used. ?? Keara Berg DO URINE ORDERABLES Final Result [facility]
[address] [place] [address], * (ABNORMAL) Urinalysis With Microscopic If Indicated (No Culture) - Urine, Clean Catch (04/29/2020 1:44 AM EDT) Color, UA Yellow Yellow, Straw 04/29/2020 1:56 AM EDT [facility] Appearance, UA Clear Clear 04/29/2020 1:56 AM EDT [facility] pH, UA <=5.0 5.0 - 8.0 04/29/2020 1:56 AM EDT [facility] Specific [place], UA 1.017 1.001 - 1.030 04/29/2020 1:56 AM EDT [facility] Glucose, UA 100 mg/dL (Trace)(A) Negative 04/29/2020 1:56 AM EDT [facility] Ketones, UA Negative Negative 04/29/2020 1:56 AM EDT [facility] Bilirubin, UA Negative Negative 04/29/2020 1:56 AM EDT [facility] Blood, UA Negative Negative 04/29/2020 1:56 AM EDT [facility] Protein, UA >=300 mg/dL (3+)(A) Negative 04/29/2020 1:56 AM EDT [facility] Leuk Esterase, UA Negative Negative 04/29/2020 1:56 AM EDT [facility] Nitrite, UA Negative Negative 04/29/2020 1:56 AM EDT [facility] Urobilinogen, UA 0.2 E.U./dL 0.2 - 1.0 E.U./dL 04/29/2020 1:56 AM EDT [facility] Urine Urine specimen collection, clean catch / Unknown Collection / Unknown 04/29/2020 1:44 AM EDT 04/29/2020 1:53 AM EDT Keara Berg DO URINE ORDERABLES Final Result Performing Organization Address [facility] Co de Phone Number [facility]
[address] [place] [address], * (ABNORMAL) POC Glucose Once (04/28/2020 8:51 PM EDT) Glucose 219(H) 70 - 130 mg/dL 04/28/2020 8:51 PM EDT [facility] Blood 04/28/2020 8:51 PM EDT 04/28/2020 8:51 PM EDT us Keara Berg DO POINT OF CARE TEST ORDERABLES Final Result Performing Organization Address [facility] Co de Phone Number [facility]
[address] [place] [address], [place] [phone] * Hep B Confirmation Tube (04/28/2020 7:24 PM EDT) Extra Tube 04/29/2020 6:40 AM EDT [facility] Blood Venipuncture / Unknown 04/28/2020 7:24 PM EDT 04/28/2020 7:40 PM EDT us Keara Berg DO LAB BLOOD ORDERABLES Final Res ult Performing Organization Address City/[facility]/ZIP Co de Phone Number [facility]
[address] [place] [address], * Hepatitis Panel, Acute (04/28/2020 7:24 PM EDT) Pathologist [facility] Hepatitis B Surface Ag 04/28/2020 8:36 PM EDT [facility] Hep A IgM Non-Reacti ve Non-Reacti ve 04/28/2020 8:36 PM EDT [facility] Hep B C IgM Non-Reacti ve Non-Reacti ve 04/28/2020 8:36 PM EDT [facility] Hepatitis C Ab Non-Reacti ve Non-Reacti ve 04/28/2020 8:36 PM EDT [facility] Blood Venipuncture / Unknown 04/28/2020 7:24 PM EDT 04/28/2020 7:40 PM EDT [facility] - 04/28/2020 8:36 PM EDT Results may be falsely decreased if patient taking Biotin. Preliminary reactive result pending confirmation at [facility]. us Keara Berg DO LAB BLOOD ORDERABLES Final Res ult Performing Organization Address [facility] Co de Phone Number [facility]
[address] [place] [address], * (ABNORMAL) Troponin (04/28/2020 7:24 PM EDT) Troponin T 0.126(HH) 0.000 - 0.030 ng/mL 04/28/2020 8:26 PM EDT [facility] Blood Venipuncture / Unknown 04/28/2020 7:24 PM EDT 04/28/2020 7:40 PM EDT [facility] - 04/28/2020 8:26 PM EDT Troponin T Reference Range: <= 0.03 ng/mL- ?? Negative for AMI >0.03 ng/mL- ? Abnormal for myocardial necrosis. ??Clinicians would have to utilize clinical acumen, EKG, Troponin and serial changes to determine if it is an Acute Myocardial Infarction or myocardial injury due to an underlying chronic condition. Results may be falsely decreased if patient taking Biotin. Keara Berg DO LAB BLOOD ORDERABLES Final Res ult [facility]
[address] [place] [address], * (ABNORMAL) Procalcitonin (04/28/2020 7:24 PM EDT) Procalcitonin 4.48(H) 0.00 - 0.25 ng/mL 04/28/2020 8:16 PM EDT [facility] Blood Venipuncture / Unknown 04/28/2020 7:24 PM EDT 04/28/2020 7:40 PM EDT Narrative [facility] - 04/28/2020 8:16 PM EDT As a Marker for Sepsis (Non-Neonates): 1. <0.5 ng/mL represents a low risk of severe sepsis and/or septic shock. 1. >2 ng/mL represents a high risk of severe sepsis and/or septic shock. As a Marker for Lower Respiratory Tract Infections that require antibiotic therapy: PCT on Admission ? Antibiotic Therapy ? 6-12 Hrs later > 0.5 ?Strongly Recommended ? >0.25 - <0.5 ? Recommended 0.1 - 0.25 ? Discouraged ? Remeasure/reassess PCT <0.1 ? Strongly Discouraged ?Remeasure/reassess PCT ?? As 28 day mortality risk marker: Change in Procalcitonin Result (> 80 % or <=80 %) if Day 0 (or Day 1) and Day 4 values are available. Refer to http://www.vazwve-nqb-npdnyhbzeg.com/ Change in PCT <=80 % A decrease of PCT levels below or equal to 80 % defines a positive change in PCT test result representing a higher risk for 28-day all-cause mortality of patients diagnosed with severe sepsis or septic shock. Change in PCT > 80 % A decrease of PCT levels of more than 80 % defines a negative change in PCT result representing a lower risk for 28-day all-cause mortality of patients diagnosed with severe sepsis or septic shock. Results may be falsely decreased if patient taking Biotin. Keara Berg DO LAB BLOOD ORDERABLES Final Res ult Performing Organization Address City/[facility]/ZIP Co de Phone Number [facility]
[address] [place] [address], * (ABNORMAL) POC Glucose Once (04/28/2020 5:23 PM EDT) [facility] Glucose 188(H) 70 - 130 mg/dL 04/28/2020 5:24 PM EDT [facility] Blood 04/28/2020 5:23 PM EDT 04/28/2020 5:24 PM EDT Keara Berg DO POINT OF CARE TEST ORDERABLES Final Result Performing Organization Address [facility] Co de Phone Number [facility]
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 Swab in UTM/VTM, 3-4 HR TAT - Swab, Nasopharynx (04/28/2020 3:05 PM EDT) [facility] ADENOVIRUS, PCR Not Detected Not Detected BIOFIRE FILMARRAY 04/28/2020 4:44 PM EDT [facility] Coronavirus 229E Not Detected Not Detected BIOFIRE FILMARRAY 04/28/2020 4:44 PM EDT [facility] Coronavirus HKU1 Not Detected Not Detected BIOFIRE [employer]MARRAY 04/28/2020 4:44 PM EDT [facility] Coronavirus NL63 Not Detected Not Detected BIOFIRE FILMARRAY 04/28/2020 4:44 PM EDT [facility] Coronavirus OC43 Not Detected Not Detected BIOFIRE FILMARRAY 04/28/2020 4:44 PM EDT [facility] COVID19 Not Detected Not Detected - Ref. Range BIOFIRE FILMARRAY 04/28/2020 4:44 PM EDT [facility] Human Metapneumovirus Not Detected Not Detected [employer] 04/28/2020 4:44 PM EDT [facility] Human Rhinovirus/Enterov irus Not Detected Not Detected [employer] 04/28/2020 4:44 PM EDT [facility] Influenza A PCR Not Detected Not Detected B[employer] 04/28/2020 4:44 PM EDT [facility] Influenza A H1 Not Detected Not Detected BIO[employer]RE [employer]MARRAY 04/28/2020 4:44 PM EDT [facility] Influenza A H1 2009 PCR Not Detected Not Detected B[employer] 04/28/2020 4:44 PM EDT [facility] Influenza A H3 Not Detected Not Detected B[employer]MAR[employer] 04/28/2020 4:44 PM EDT [facility] Influenza B PCR Not Detected Not Detected B[employer] 04/28/2020 4:44 PM EDT [facility] Parainfluenza Virus 1 Not Detected Not Detected BIO[employer] 04/28/2020 4:44 PM EDT [facility] Parainfluenza Virus 2 Not Detected Not Detected BIO[employer]MAR[employer] 04/28/2020 4:44 PM EDT [facility] Parainfluenza Virus 3 Not Detected Not Detected B[employer] 04/28/2020 4:44 PM EDT [facility] Parainfluenza Virus 4 Not Detected Not Detected [employer] 04/28/2020 4:44 PM EDT [facility] RSV, PCR Not Detected Not Detected [employer] 04/28/2020 4:44 PM EDT [facility] Bordetella pertussis pcr Not Detected Not Detected [employer] 04/28/2020 4:44 PM EDT [facility] Bordetella parapertussis PCR Not Detected Not Detected B[employer]RE [employer]MARRAY 04/28/2020 4:44 PM EDT [facility] Chlamydophila pneumoniae PCR Not Detected Not Detected B[employer] 04/28/2020 4:44 PM EDT [facility] Mycoplasma pneumo by PCR Not Detected Not Detected B[employer] 04/28/2020 4:44 PM EDT [facility] Swab Nasopharyngeal structure / Unknown Collection / Unknown 04/28/2020 3:05 PM EDT 04/28/2020 3:53 PM EDT Narrative [facility] - 04/28/2020 4:44 PM EDT Fact sheet for providers: https://docs.[employer]/wp-content/uploads/OQM5203-0805-IL8.4-LXK-Cnqvzitn-Fa ct-Sh eet-3.pdf Fact sheet for patients: https://docs.[employer]/wp-content/uploads/VYY6494-8255-YB1.1-EQS-Trsaoey-Fac t-She et-1.pdf Keara Berg DO MICROBIOLOGY - GENERAL ORDERAB LES Final Result [facility]
[address] [place] [address], * (ABNORMAL) Blood Gas, Arterial With Co-Ox (04/28/2020 11:43 AM EDT) Michael's Test N/A 04/28/2020 11:45 AM EDT [facility] pH, Arterial 7.277(L) 7.350 - 7.450 pH units 04/28/2020 11:45 AM [facility] Comment:84 Value below refer ence range pCO2, Arterial 46.8(H) 35.0 - 45.0 mm Hg 04/28/2020 11:45 AM [facility] Comment:83 Value above refer ence range pO2, Arterial 88.1 83.0 - 108.0 mm Hg 04/28/2020 11:45 AM [facility] HCO3, Arterial 21.8 20.0 - 26.0 mmol/L 04/28/2020 11:45 AM [facility] Base Excess, Arterial -4.8(L) 0.0 - 2.0 mmol/L 04/28/2020 11:45 AM [facility] Hemoglobin, Blood Gas 8.4(L) 13.5 - 17.5 g/dL 04/28/2020 11:45 AM [facility] Comment:84 Value below refer ence range Hematocrit, Blood Gas 25.7 % 04/28/2020 11:45 AM [facility] Oxyhemoglobin 94.1 94 - 99 % 04/28/2020 11:45 AM [facility] Methemoglobin 0.80 0.00 - 1.50 % 04/28/2020 11:45 AM [facility] Carboxyhemoglobin 0.9 0 - 2 % 020 11:45 AM [facility] CO2 Content 23.2 22 - 33 mmol/L 04/28/2020 11:45 AM [facility] Temperature 37.0 C 04/28/2020 11:45 AM [facility] Barometric Pressure for Blood Gas 04/28/2020 11:45 AM [facility] Comment:N/A Modality Nasal Cannula 04/28/2020 11:45 AM [facility] FIO2 32 % 04/28/2020 11:45 AM [facility] Rate 0 Breaths/ minute 04/28/2020 11:45 AM [facility] PIP 0 cmH2O 04/28/2020 11:45 AM EDT [facility] Comment:Meter: [id number] It Applications Manager: [id number] IPAP 0 04/28/2020 11:45 AM EDT [facility] EPAP 0 04/28/2020 11:45 AM EDT [facility] Note 04/28/2020 11:45 AM EDT [facility] pH, Temp Corrected 7.277 pH Units 2019 11:45 AM EDT [facility] pCO2, Temperature Corrected 46.8 35 - 48 mm Hg 04/28/2020 11:45 AM EDT [facility] pO2, Temperature Corrected 88.1 83 - 108 mm Hg 04/28/2020 11:45 AM EDT [facility] Arterial Blood 04/28/2020 11 :43 AM EDT 04/28/2020 11:47 AM EDT us Keara Berg DO LAB BLOOD ORDERABLES Final Res ult [facility]
[address] [place] [address], [place] * MRI Lumbar Spine Without Contrast (04/28/2020 10:52 AM EDT) Anatomical Region Laterality Modality Spine, L-spine N/A Magnetic Resonan ce 04/28/2020 10:5 8 AM EDT Impressions 04/29/2020 9:20 AM EDT There are degenerative changes seen of the L4/L5 and L5/S1 levels with osteomyelitis and discitis seen of L5 and S1 with fluid collection identified in the epidural space concerning for an epidural abscess. Clinical correlation is needed. There is mass effect on the thecal sac with narrowing and mass effect on the nerve roots bilaterally. D: ??04/28/2020 E: ??04/28/2020 ?? This report was finalized on 04/29/2020 9:[address] Abbie Carlson MD. Narrative 04/29/2020 9:20 AM EDT EXAMINATION: MRI LUMBAR SPINE WO CONTRAST-04/28/2020: INDICATION: Lower back pain, evaluate for epidural abscess. Positive changes on CT scan; M54.41-Lumbago with sciatica, right side; M46.46-Discitis, unspecified, lumbar region; N17.9-Acute kidney failure, unspecified; Z99.2-Dependence on renal dialysis; D72.825-Bandemia, low back pain. TECHNIQUE: Routine multiplanar imaging was obtained of the lumbar spine without the administration of Gadolinium contrast. COMPARISON: CT scan of the lumbar spine dated 04/28/2020. FINDINGS: There is abnormality identified within the L5/S1 level with fluid identified in the disc space and abnormal fluid and signal intensity seen posterior to the L5 level. Bilateral pars defects identified of the L5/S1 level with mild anterolisthesis identified of L5 on S1. There is mass effect on the anterior aspect of the thecal sac. Findings highly concerning for an epidural abscess. There is narrowing identified of the spinal canal. The abnormal fluid collection measures approximately 4.3 x 1.4 x 1.1 cm in its largest dimension. There is signal changes identified within the inferior endplate of L5 and superior endplate of S1 suggesting osteomyelitis. There are degenerative changes identified of the L4/L5 level. No abnormal mass or fluid collection seen within the paraspinal muscles. The remainder of the disc spaces are preserved. Normal signal intensity within the conus. Procedure Note Abbie Carlson MD - 04/29/2020 EXAMINATION: MRI LUMBAR SPINE WO CONTRAST-04/28/2020: INDICATION: Lower back pain, evaluate for epidural abscess. Positive changes on CT scan; M54.41-Lumbago with sciatica, right side; M46.46-Discitis, unspecified, lumbar region; N17.9-Acute kidney failure, unspecified; Z99.2-Dependence on renal dialysis; D72.825-Bandemia, low back pain. TECHNIQUE: Routine multiplanar imaging was obtained of the lumbar spine without the administration of Gadolinium contrast. COMPARISON: CT scan of the lumbar spine dated 04/28/2020. FINDINGS: There is abnormality identified within the L5/S1 level with fluid identified in the disc space and abnormal fluid and signal intensity seen posterior to the L5 level. Bilateral pars defects identified of the L5/S1 level with mild anterolisthesis identified of L5 on S1. There is mass effect on the anterior aspect of the thecal sac. Findings highly concerning for an epidural abscess. There is narrowing identified of the spinal canal. The abnormal fluid collection measures approximately 4.3 x 1.4 x 1.1 cm in its largest dimension. There is signal changes identified within the inferior endplate of L5 and superior endplate of S1 suggesting osteomyelitis. There are degenerative changes identified of the L4/L5 level. No abnormal mass or fluid collection seen within the paraspinal muscles. The remainder of the disc spaces are preserved. Normal signal intensity within the conus. IMPRESSION: There are degenerative changes seen of the L4/L5 and L5/S1 levels with osteomyelitis and discitis seen of L5 and S1 with fluid collection identified in the epidural space concerning for an epidural abscess. Clinical correlation is needed. There is mass effect on the thecal sac with narrowing and mass effect on the nerve roots bilaterally. E: 04/28/2020 This report was finalized on 04/29/2020 9:[address] Abbie Carlson MD. Kym Garcia DO IMG MRI ORDERABLES Final Result * Blood Culture - Blood, Wrist, Right (04/28/2020 7:01 AM EDT) Pathologist [facility] Blood Culture No growth at 5 days 05/03/2020 8:00 AM EDT [facility] Blood Structure of right wrist region / Unknown Venipuncture / Unknown 04/28/2020 7:01 AM EDT 04/28/2020 7:49 AM EDT Kym Garcia DO MICROBIOLOGY - GENERAL O RDERABLES Final Result [facility]
[address] [place] [address], * Lactic Acid, Reflex (04/28/2020 7:01 AM EDT) Lactate 1.3 0.5 - 2.0 mmol/L 04/28/2020 7:35 AM EDT [facility] Comment:Falsely depressed re sults may occur on samples drawn from patients receiving N-Acetylcysteine (NAC) or Metamizole. Blood Venipuncture / Unknown 04/28/2020 7:01 AM EDT 04/28/2020 7:10 AM EDT Kym Garcia DO LAB BLOOD ORDERABLES Fin al Result Performing Organization Address City/[facility]/ZIP Co de Phone Number [facility]
[address] [place] [address], * Blood Culture - Blood, Arm, Right (04/28/2020 6:50 AM EDT) Blood Culture No growth at 5 days 05/03/2020 8:00 AM EDT [facility] Blood Right upper arm structure / Unknown Venipuncture / Unknown 04/28/2020 6:50 AM EDT 04/28/2020 7:50 AM EDT Kym Garcia DO MICROBIOLOGY - GENERAL O RDERABLES Final Result Performing Organization Address City/[facility] Co de Phone Number [facility]
[address] [place] [address], * CT Lumbar Spine Without Contrast (04/28/2020 6:08 AM EDT) Anatomical Region Laterality Modality L-spine N/A Computed Tomogra phy 04/28/2020 6:28 AM EDT Impressions 04/28/2020 6:28 AM EDT 1. Grade 1 anterolisthesis of L5 on S1 secondary to chronic L5 pars defects. 2. There are air densities within the canal for 5 L5-S1 level. This can be seen in the setting of extruded vacuum disc formation but possibility of an epidural abscess is in the differential and should be excluded with MRI lumbar spine with and without contrast. Additionally there is endplate irregularity at the inferior endplate of L5 could be due to severe degenerative disc disease but alternate diagnosis includes discitis. Signer Name: Heather Fried MD Signed: 04/28/2020 6:28 AM Workstation Name: [email or web address] 04/28/2020 6:28 AM EDT INDICATION: ?? Pain and short of breath. Liver transplant patient TECHNIQUE: CT of the lumbar spine without contrast. Coronal and sagittal reconstructions were obtained. ??Radiation dose reduction techniques included automated exposure control or exposure modulation based on body size. Radiation audit for number of CT and nuclear cardiology exams performed in the last year: 0. ?? COMPARISON: ?? None FINDINGS: There is 3 to 4 mm of grade 1 anterolisthesis of L5 on S1 secondary to chronic L5 pars defects. There is loss of disc height, vacuum disc formation, endplate spondylosis at the inferior endplate of L5. There is irregularity of the inferior endplate of L5 some of which is sclerotic and some of which is nonsclerotic. This could be due to Schmorl's node formation/degenerative disc disease but discitis is not excluded. There are tiny air densities within the canal posterior to L4-5 and L5-S1. Scan be seen in the setting of vacuum disc extrusion but the amount seen is more diffuse than typical. An alternate consideration in an immunocompromised patient with back pain is epidural abscess/discitis and osteomyelitis. Recommend correlation with an MRI lumbar spine with and without contrast if the patient is candidate. Otherwise there is no acute fracture or bone destruction. At T11-12 is facet degenerative change with mild to mass effect on the thecal sac. At T12-L1, no bony canal or foraminal compromise. At L1-2, no canal or foraminal compromise. At L2-3, no canal or foraminal compromise. At L3-4, no canal or foraminal compromise. At L4-5, there is a posterior disc bulge and mild facet degenerative change. Air bubbles are seen in the canal. There is at least some effacement of the thecal sac by the disc bulge. There is likely mild foraminal narrowing. L5-S1 as discussed above. There is no bony canal stenosis. Pars defects accounting for the anterolisthesis. There is bilateral bony foraminal narrowing. Procedure Note Heather Fried MD - 04/28/2020 INDICATION: Pain and short of breath. Liver transplant patient TECHNIQUE: CT of the lumbar spine without contrast. Coronal and sagittalreconstructions were obtained. Radiation dose reduction techniquesincluded automated exposure control or exposure modulation based on bodysize. Radiation audit for number of CT and nuclear cardiology exams performed in the last year: 0. COMPARISON: None FINDINGS: There is 3 to 4 mm of grade 1 anterolisthesis of L5 on S1 secondary tochronic L5 pars defects. There is loss of disc height, vacuum discformation, endplate spondylosis at the inferior endplate of L5. There isirregularity of the inferior endplate of L5 some of which is sclerotic and some of which is nonsclerotic. This couldbe due to Schmorl's node formation/degenerative disc disease but discitisis not excluded. There are tiny air densities within the canal posteriorto L4-5 and L5-S1. Scan be seen in the setting of vacuum disc extrusion but the amount seen is more diffusethan typical. An alternate consideration in an immunocompromised patientwith back pain is epidural abscess/discitis and osteomyelitis. Recommendcorrelation with an MRI lumbar spine with and without contrast if the patient is candidate. Otherwise there is no acute fracture or bone destruction. At T11-12 isfacet degenerative change with mild to mass effect on the thecal sac. At T12-L1, no bony canal or foraminal compromise. At L1-2, no canal or foraminal compromise. At L2-3, no canal or foraminal compromise. At L3-4, no canal or foraminal compromise. At L4-5, there is a posterior disc bulge and mild facet degenerativechange. Air bubbles are seen in the canal. There is at least someeffacement of the thecal sac by the disc bulge. There is likely mildforaminal narrowing. L5-S1 as discussed above. There is no bony canal stenosis. Pars defectsaccounting for the anterolisthesis. There is bilateral bony foraminalnarrowing. IMPRESSION: 1. Grade 1 anterolisthesis of L5 on S1 secondary to chronic L5 parsdefects. 2. There are air densities within the canal for 5 L5-S1 level. This can beseen in the setting of extruded vacuum disc formation but possibility ofan epidural abscess is in the differential and should be excluded with MRIlumbar spine with and without contrast. Additionally there is endplate irregularity at the inferiorendplate of L5 could be due to severe degenerative disc disease butalternate diagnosis includes discitis. Signer Name: Heather Fried MD Signed: 04/28/2020 6:28 AM Workstation Name: [facility] Kym Carmona Marcelochivo DO IMG CT ORDERABLES Final Result * CT Chest Without Contrast (04/28/2020 6:08 AM EDT) Anatomical Region Laterality Modality Chest N/A Computed Tomogra phy 04/28/2020 6:34 AM EDT Impressions 04/28/2020 6:34 AM EDT 1. The esophagus is patulous with circumferential wall thickening. Its distended with fluid and air-fluid level. The stomach is distended. See the separate abdomen pelvis dictation. 2. Apparent left pleural thickening and parenchymal scarring with distortion of the left superior hilum. A believe these findings are chronic but recommend comparison to outside chest CT to confirm long-term stability. Please correlate with any history. Study is limited by lack of IV contrast media. 3. Otherwise no active disease is seen in the chest. Signer Name: Heather Fried MD Signed: 04/28/2020 6:34 AM Workstation Name: [facility] Narrative 04/28/2020 6:34 AM EDT INDICATION: ?? Liver transplant with generalized abdominal pain low back pain and shortness of breath. ER evaluation TECHNIQUE: CT of the chest without contrast. Coronal and sagittal reconstructions were obtained. ??Radiation dose reduction techniques included automated exposure control or exposure modulation based on body size. Radiation audit for number of CT and nuclear cardiology exams performed in the last year: 0. ?? COMPARISON: ?? Earlier chest x-ray today FINDINGS: Study is limited by lack of IV contrast media. There is no axillary lymphadenopathy. The esophagus is patulous with wall thickening diffusely and fluid-filled/air-fluid level. Visualized stomach is very distended with fluid. See the abdomen dictation. There is evidence for old granulomatous disease. There is no lymphadenopathy in the mediastinum or debbi by measurement criteria on this noncontrast exam. Heart size is top normal. There is no definite pleural effusion. There is apparently left pleural thickening and areas of parenchymal scarring. There is distortion of parenchymal architecture in the left upper lobe and left upper hilum which is probably chronic. Comparison to any interval outside chest CT is recommended to confirm stability. There is no pneumothorax. There is no acute infiltrate. There is no congestive failure. Procedure Note Heather Fried MD - 04/28/2020 INDICATION: Liver transplant with generalized abdominal pain low back pain andshortness of breath. ER evaluation TECHNIQUE: CT of the chest without contrast. Coronal and sagittal reconstructionswere obtained. Radiation dose reduction techniques included automatedexposure control or exposure modulation based on body size. Radiationaudit for number of CT and nuclear cardiology exams performed in the last year: 0. COMPARISON: Earlier chest x-ray today FINDINGS: Study is limited by lack of IV contrast media. There is no axillarylymphadenopathy. The esophagus is patulous with wall thickening diffuselyand fluid-filled/air-fluid level. Visualized stomach is very distendedwith fluid. See the abdomen dictation. There is evidence for old granulomatous disease. There is nolymphadenopathy in the mediastinum or debbi by measurement criteria on thisnoncontrast exam. Heart size is top normal. There is no definite pleuraleffusion. There is apparently left pleural thickening and areas of parenchymal scarring. There is distortion ofparenchymal architecture in the left upper lobe and left upper hilum whichis probably chronic. Comparison to any interval outside chest CT isrecommended to confirm stability. There is no pneumothorax. There is no acute infiltrate. There is no congestivefailure. IMPRESSION: 1. The esophagus is patulous with circumferential wall thickening. Itsdistended with fluid and air-fluid level. The stomach is distended. Seethe separate abdomen pelvis dictation. 2. Apparent left pleural thickening and parenchymal scarring withdistortion of the left superior hilum. A believe these findings arechronic but recommend comparison to outside chest CT to confirm long-termstability. Please correlate with any history. Study is limited by lack of IV contrast media. 3. Otherwise no active disease is seen in the chest. Signer Name: Heather Fried MD Signed: 04/28/2020 6:34 AM Workstation Name: [facility] Kym Garcia DO IMG CT ORDERABLES Final Result * CT Abdomen Pelvis Without Contrast (04/28/2020 6:08 AM EDT) Anatomical Region Laterality Modality Abdomen, Pelvis N/A Computed Tomogra phy 04/28/2020 6:41 AM EDT Impressions 04/28/2020 6:41 AM EDT 1. Findings consistent with previous liver transplant. 2. Marked distention of the stomach with fluid. Correlate for clinical evidence of gastroparesis versus gastric outlet obstruction. 3. There is a fat-containing anterior abdominal wall incisional hernia sac without bowel obstruction. 4. The appendix is radiographically unremarkable. 5. There our probably some left upper quadrant varices. Study is limited by lack of IV contrast media. Signer Name: Heather Fried MD Signed: 04/28/2020 6:41 AM Workstation Name: [email or web address] 04/28/2020 6:41 AM EDT INDICATION: Post liver transplant with generalized abdominal fullness abdominal pain and low back pain with shortness of breath. TECHNIQUE: CT of the abdomen and pelvis without contrast. Coronal and sagittal reconstructions were obtained. ??Radiation dose reduction techniques included automated exposure control or exposure modulation based on body size. Radiation audit for number of CT and nuclear cardiology exams performed in the last year: 0. ?? COMPARISON: None available. FINDINGS: Lung bases: See separate CT chest today Abdomen: Study is limited by lack of IV contrast media. Stomach is very distended with fluid. Please correlate for clinical evidence of gastroparesis or gastric outlet obstruction. There are multiple right upper quadrant surgical clips consistent with liver transplantation. Noncontrast study does not accurately evaluate liver parenchyma. The patient's post cholecystectomy. Unenhanced pancreas is unremarkable. There are probably some left upper quadrant varices. The adrenal glands are unremarkable. There are are no intrarenal calculi. There is bilateral renal parenchymal thinning. There is no hydronephrosis. There is mild perinephric stranding. There is no evidence for abdominal aortic aneurysm. The appendix is radiographically unremarkable. There is no evidence for small bowel obstruction. There is a fat-containing midline anterior abdominal wall hernia with a broad neck that measures about 6.8 cm diameter. The hernia sac is about 11 x 9 cm mL and SI dimension and 4 cm AP dimension. There is colonic gas and stool prominence of the colon but no obstruction point. Pelvis: The bladder is partly decompressed and unremarkable. There is a small fat-containing right inguinal hernia. There is no free fluid in the pelvis. There is no free intraperitoneal air. Procedure Note Heather Fried MD - 04/28/2020 INDICATION: Post liver transplant with generalized abdominal fullness abdominal painand low back pain with shortness of breath. TECHNIQUE: CT of the abdomen and pelvis without contrast. Coronal and sagittalreconstructions were obtained. Radiation dose reduction techniquesincluded automated exposure control or exposure modulation based on bodysize. Radiation audit for number of CT and nuclear cardiology exams performed in the last year: 0. COMPARISON: None available. FINDINGS: Lung bases: See separate CT chest today Abdomen: Study is limited by lack of IV contrast media. Stomach is verydistended with fluid. Please correlate for clinical evidence ofgastroparesis or gastric outlet obstruction. There are multiple right upper quadrant surgical clips consistent withliver transplantation. Noncontrast study does not accurately evaluateliver parenchyma. The patient's post cholecystectomy. Unenhanced pancreas is unremarkable. There are probably some left upperquadrant varices. The adrenal glands are unremarkable. There are are no intrarenal calculi. There is bilateral renal parenchymalthinning. There is no hydronephrosis. There is mild perinephric stranding. There is no evidence for abdominal aortic aneurysm. The appendix is radiographically unremarkable. There is no evidence forsmall bowel obstruction. There is a fat-containing midline anterior abdominal wall hernia with abroad neck that measures about 6.8 cm diameter. The hernia sac is about 11x 9 cm mL and SI dimension and 4 cm AP dimension. There is colonic gas and stool prominence of the colon but no obstructionpoint. Pelvis: The bladder is partly decompressed and unremarkable. There is asmall fat-containing right inguinal hernia. There is no free fluid in thepelvis. There is no free intraperitoneal air. IMPRESSION: 1. Findings consistent with previous liver transplant. 2. Marked distention of the stomach with fluid. Correlate for clinicalevidence of gastroparesis versus gastric outlet obstruction. 3. There is a fat-containing anterior abdominal wall incisional hernia sacwithout bowel obstruction. 4. The appendix is radiographically unremarkable. 5. There our probably some left upper quadrant varices. Study is limitedby lack of IV contrast media. Signer Name: Heather Fried MD Signed: 04/28/2020 6:41 AM Workstation Name: [facility] Kym Garcia DO IMG CT ORDERABLES Final Result * XR Chest 1 View (04/28/2020 1:52 AM EDT) Anatomical Region Laterality Modality Body N/A Radiographic Sobia ging 04/28/2020 1:58 AM EDT Impressions 04/28/2020 1:58 AM EDT No acute cardiopulmonary findings. Signer Name: Gabino Herr MD Signed: 04/28/2020 1:58 AM Workstation Name: [facility] Narrative 04/28/2020 1:58 AM EDT CR Chest 1 Vw INDICATION: Weakness and dizziness on arrival COMPARISON: ?? None available. FINDINGS: Single portable AP view(s) of the chest. ??The heart and mediastinal contours are normal. The lungs are clear. No pneumothorax or pleural effusion. Procedure Note Gabino Herr MD - 04/28/2020 CR Chest 1 Vw INDICATION: Weakness and dizziness on arrival COMPARISON: None available. FINDINGS: Single portable AP view(s) of the chest. The heart and mediastinalcontours are normal. The lungs are clear. No pneumothorax or pleuraleffusion. IMPRESSION: No acute cardiopulmonary findings. Signer Name: Gabino Herr MD Signed: 04/28/2020 1:58 AM Workstation Name: [facility] Kym Garcia DO IMG DIAGNOSTIC IMAGING O RDERABLES Final Result * ECG 12 Lead (04/28/2020 12:20 AM EDT) 04/28/2020 12:2 0 AM EDT 04/28/2020 8:01 AM EDT Narrative [facility] ECG - 04/28/2020 8:01 AM EDT Test Reason : Weak/Dizzy/AMS protocol Blood Pressure : / mmHG Vent. Rate : 099 BPM ? Atrial Rate : 099 BPM ?? P-R Int : 166 ms ?QRS Dur : 106 ms ?QT Int : 374 ms ? P-R-T Axes : 058 035 038 degrees ?? QTc Int : 479 ms Normal sinus rhythm Possible Left atrial enlargement Borderline ECG No previous ECGs available Confirmed by KYM GARCIA MD ([id number]) on 04/28/2020 8:01:00 AM Referred By: ??EDMD ? Confirmed By:KYM GARCIA MD Procedure Note Kym Garcia DO - 04/28/2020 Test Reason : Weak/Dizzy/AMS protocol Blood Pressure : / mmHG Vent. Rate : 099 BPM Atrial Rate : 099 BPM P-R Int : 166 ms QRS Dur : 106 ms QT Int : 374 ms P-R-T Axes : 058 035 038 degrees QTc Int : 479 ms Normal sinus rhythm Possible Left atrial enlargement Borderline ECG No previous ECGs available Confirmed by YKM GARCIA MD ([id number]) on 04/28/2020 8:01:00 AM Referred By: ED Confirmed By:KYM GARCIA MD us Kym Garcia DO ECG ORDERABLES Final Re sult Performing Organization Address [facility]/ZIP Co de Phone Number ECG * Lactic Acid, Reflex Timer (This will reflex a repeat order 3-3:15 hours after ordered.) (04/28/202012:17 AM EDT) Hold Tube Hold for add-ons. 04/28/2020 4:00 AM EDT [facility] Comment:Auto resulted. Blood Venipuncture / Unknown 04/28/2020 12:17 AM EDT 04/28/2020 12:23 AM EDT us Kym Garcia DO LAB BLOOD ORDERABLES Fin al Result Performing Organization Address City/[facility]/ZIP Co de Phone Number [facility]
[address] [place] [address], * (ABNORMAL) Lactic Acid, Plasma (04/28/2020 12:17 AM EDT) Pathologist [facility] Lactate 3.2(HH) 0.5 - 2.0 mmol/L 04/28/2020 12:48 AM EDT [facility] Comment:Falsely depressed re sults may occur on samples drawn from patients receiving N-Acetylcysteine (NAC) or Metamizole. Blood Venipuncture / Unknown 04/28/2020 12:17 AM EDT 04/28/2020 12:23 AM EDT Kym Garcia DO LAB BLOOD ORDERABLES Fin al Result [facility]
[address] [place] [address], * (ABNORMAL) CBC Auto Differential (04/28/2020 12:16 AM EDT) Pathologist [facility] WBC 15.73(H) 3.40 - 10.80 10*3/mm3 04/28/2020 12:26 AM EDT [facility] RBC 2.91(L) 4.14 - 5.80 10*6/mm3 04/28/2020 12:26 AM EDT [facility] Hemoglobin 9.3(L) 13.0 - 17.7 g/dL 04/28/2020 12:26 AM EDT [facility] Hematocrit 27.2(L) 37.5 - 51.0 % 04/28/2020 12:26 AM EDT [facility] MCV 93.5 79.0 - 97.0 fL 04/28/2020 12:26 AM EDT [facility] MCH 32.0 26.6 - 33.0 pg 04/28/2020 12:26 AM EDT [facility] MCHC 34.2 31.5 - 35.7 g/dL 04/28/2020 12:26 AM EDT [facility] RDW 12.9 12.3 - 15.4 % 04/28/2020 12:26 AM EDT [facility] RDW-SD 43.5 37.0 - 54.0 fl 04/28/2020 12:26 AM [facility] MPV 9.4 6.0 - 12.0 fL 04/28/2020 12:26 AM [facility] Platelets 310 140 - 450 10*3/mm3 04/28/2020 12:26 AM [facility] Neutrophil % 68.2 42.7 - 76.0 % 04/28/2020 12:26 AM [facility] Lymphocyte % 13.9(L) 19.6 - 45.3 % 04/28/2020 12:26 AM [facility] Monocyte % 13.4(H) 5.0 - 12.0 % 04/28/2020 12:26 AM [facility] Eosinophil % 1.3 0.3 - 6.2 % 04/28/2020 12:26 AM [facility] Basophil % 0.4 0.0 - 1.5 % 04/28/2020 12:26 AM [facility] Immature Grans % 2.8(H) 0.0 - 0.5 % 04/28/2020 12:26 AM [facility] Neutrophils, Absolute 10.74(H) 1.70 - 7.00 10*3/mm3 04/28/2020 12:26 AM [facility] Lymphocytes, Absolute 2.18 0.70 - 3.10 10*3/mm3 04/28/2020 12:26 AM [facility] Monocytes, Absolute 2.10(H) 0.10 - 0.90 10*3/mm3 04/28/2020 12:26 AM [facility] Eosinophils, Absolute 0.21 0.00 - 0.40 10*3/mm3 04/28/2020 12:26 AM [facility] Basophils, Absolute 0.06 0.00 - 0.20 10*3/mm3 04/28/2020 12:26 AM [facility] Immature Grans, Absolute 0.44(H) 0.00 - 0.05 10*3/mm3 04/28/2020 12:26 AM EDT [facility] nRBC 0.1 0.0 - 0.2 /100 WBC 04/28/2020 12:26 AM EDT [facility] Blood Venipuncture / Unknown 04/28/2020 12:16 AM EDT 04/28/2020 12:23 AM EDT us Kym Carmona Melina DO LAB BLOOD ORDERABLES Fin al Result [facility]
[address] [place] [address], [place] [phone] * Gold Top - SST (04/28/2020 12:16 AM EDT) Extra Tube Hold for add-ons. 04/28/2020 1:30 AM EDT [facility] Comment:Auto resulted. Blood Venipuncture / Unknown 04/28/2020 12:16 AM EDT 04/28/2020 12:23 AM EDT us Kym Carmona Melina DIETRICH LAB BLOOD ORDER ONLY Fin al Result Performing Organization Address [facility] Co de Phone Number [facility]
[address] [place] [address], [place] [phone] * Lavender Top (04/28/2020 12:16 AM EDT) Extra Tube hold for add-on 04/28/2020 1:30 AM EDT [facility] Comment:Auto resulted Blood Venipuncture / Unknown 04/28/2020 12:16 AM EDT 04/28/2020 12:23 AM EDT us Kym Carmona Melina DO LAB BLOOD ORDER ONLY Fin al Result Performing Organization Address City/[facility] Co de Phone Number [facility]
[address] [place] [address], [place] [phone] * Green Top (Gel) (04/28/2020 12:16 AM EDT) Extra Tube Hold for add-ons. 04/28/2020 1:30 AM EDT [facility] Comment:Auto resulted. Blood Venipuncture / Unknown 04/28/2020 12:16 AM EDT 04/28/2020 12:23 AM EDT Kym Garcia DO LAB BLOOD ORDER ONLY Fin al Result [facility]
[address] [place] [address], * Light Blue Top (04/28/2020 12:16 AM EDT) Extra Tube hold for add-on 04/28/2020 1:30 AM EDT [facility] Comment:Auto resulted Blood Venipuncture / Unknown 04/28/2020 12:16 AM EDT 04/28/2020 12:23 AM EDT us Kym Garcia DO LAB BLOOD ORDER ONLY Fin al Result Performing Organization Address City/[facility] Co de Phone Number [facility]
[address] [place] [address], * Magnesium (04/28/2020 12:16 AM EDT) Magnesium 2.4 1.6 - 2.6 mg/dL 04/28/2020 12:45 AM EDT [facility] Blood Venipuncture / Unknown 04/28/2020 12:16 AM EDT 04/28/2020 12:23 AM EDT us Kym Garcia DO LAB BLOOD ORDERABLES Fin al Result Performing Organization Address City/[facility]/ZIP Co de Phone Number [facility]
[address] [place] [address], [place] [phone] * (ABNORMAL) Troponin (04/28/2020 12:16 AM EDT) Pathologist [facility] Troponin T 0.154(HH) 0.000 - 0.030 ng/mL 04/28/2020 12:48 AM EDT [facility] Blood Venipuncture / Unknown 04/28/2020 12:16 AM EDT 04/28/2020 12:23 AM EDT Narrative [facility] - 04/28/2020 12:48 AM EDT Troponin T Reference Range: <= 0.03 ng/mL- ?? Negative for AMI >0.03 ng/mL- ? Abnormal for myocardial necrosis. ??Clinicians would have to utilize clinical acumen, EKG, Troponin and serial changes to determine if it is an Acute Myocardial Infarction or myocardial injury due to an underlying chronic condition. Results may be falsely decreased if patient taking Biotin. Kym Garcia DO LAB BLOOD ORDERABLES Fin al Result [facility]
[address] [place] [address], * (ABNORMAL) Comprehensive Metabolic Panel (04/28/2020 12:16 AM EDT) [facility] Glucose 285(H) 65 - 99 mg/dL 04/28/2020 12:45 AM EDT [facility] BUN 109(H) 6 - 20 mg/dL 04/28/2020 12:45 AM EDT [facility] Creatinine 14.39(H) 0.76 - 1.27 mg/dL 04/28/2020 12:45 AM EDT [facility] Sodium 129(L) 136 - 145 mmol/L 04/28/2020 12:45 AM EDT [facility] Potassium 4.3 3.5 - 5.2 mmol/L 04/28/2020 12:45 AM EDT [facility] Chloride 80(L) 98 - 107 mmol/L 04/28/2020 12:45 AM [facility] CO2 19.0(L) 22.0 - 29.0 mmol/L 04/28/2020 12:45 AM T [facility] Calcium 9.3 8.6 - 10.5 mg/dL 04/28/2020 12:45 AM [facility] Total Protein 7.1 6.0 - 8.5 g/dL 04/28/2020 12:45 AM T [facility] Albumin 3.60 3.50 - 5.20 g/dL 04/28/2020 12:45 AM [facility] ALT (SGPT) 48(H) 1 - 41 U/L 04/28/2020 12:45 AM [facility] AST (SGOT) 24 1 - 40 U/L 04/28/2020 12:45 AM [facility] Alkaline Phosphatase 105 39 - 117 U/L 04/28/2020 12:45 AM [facility] Total Bilirubin 0.3 0.0 - 1.2 mg/dL 04/28/2020 12:45 AM [facility] eGFR Non Amer 4(L) >60 mL/min/1. 73 04/28/2020 12:45 AM [facility] Comment:<15 Indicative of ki dney failure. eGFR Amer 04/28/2020 12:45 AM [facility] Comment:<15 Indicative of ki dney failure. Globulin 3.5 gm/dL 04/28/2020 12:45 AM [facility] A/G Ratio 1.0 g/dL 04/28/2020 12:45 AM [facility] BUN/Creatinine Ratio 7.6 7.0 - 25.0 04/28/2020 12:45 AM [facility] Anion Gap 30.0(H) 5.0 - 15.0 mmol/L 04/28/2020 12:45 AM [facility] Blood Venipuncture / Unknown 04/28/2020 12:16 AM EDT 04/28/2020 12:23 AM EDT Narrative [facility] - 04/28/2020 12:45 AM EDT GFR Normal >60 Chronic Kidney Disease <60 Kidney Failure <15 Result [facility] Kym Garcia DO LAB BLOOD ORDERABLES Fin al Result [facility]
[address] [place] [address], * SCANNED - TELEMETRY (04/28/2020) Anatomical Region Laterality Modality Other [facility] Onbase ECG ORDERABLES Final Result * SCANNED - TELEMETRY (04/28/2020) Anatomical Region Laterality Modality Other [facility] Onbase ECG ORDERABLES Final Result * SCANNED - TELEMETRY (04/28/2020) Anatomical Region Laterality Modality Other Result [facility] Onbase ECG ORDERABLES Final Result * SCANNED - TELEMETRY (04/28/2020) Anatomical Region Laterality Modality Other Result [facility] Onbase ECG ORDERABLES Final Result * SCANNED - TELEMETRY (04/28/2020) Anatomical Region Laterality Modality Other Result [facility] Onbase ECG ORDERABLES Final Result * SCANNED - TELEMETRY (04/28/2020) Anatomical Region Laterality Modality Other [facility] Onbase ECG ORDERABLES Final Result documented in this encounter Visit Diagnoses Diagnosis Acute right-sided low back pain with right-sided sciatica- Primary Discitis of lumbar region Other and unspecified disc disorder of lumbar region Acute renal failure on dialysis Bandemia Abscess in epidural space of lumbar spine Gastrointestinal hemorrhage with melena Sepsis with acute organ dysfunction, due to unspecified organism, unspecified type, unspecified whether septic shock present Sepsis KIM (nonalcoholic steatohepatitis) Other chronic nonalcoholic liver disease History of liver transplant Liver replaced by transplant Immunosuppression Type 2 diabetes mellitus Altered mental state Altered mental status ESRD (end stage renal disease) End stage renal disease Hyponatremia Hyposmolality and/or hyponatremia Discitis Other and unspecified disc disorder of unspecified region Epidural abscess Intracranial abscess Leukocytosis Leukocytosis, unspecified documented in this encounter Admitting Diagnoses Diagnosis Sepsis documented in this encounter Administered Medications Inactive Administered Medications - up to 3 most recent administrations Medication Order MAR Action Action Date Dose Rate Site acetaminophen (TYLENOL) 160 MG/5ML solution 650 mg 650 mg, Oral, Every 4 Hours PRN, Mild Pain, Starting on Mon04/28/20 at 1130, Do not exceed 4 grams of acetaminophen in a 24 hr period. If given for pain, use the following pain scale: Mild Pain = Pain Score of 1-3, CPOT 1-2 Moderate Pain = Pain Score of 4-6, CPOT 3-4 Severe Pain = Pain Score of 7-10, CPOT 5-8 Given 04/29/2020 7:59 AM EDT 649.6 mg acetaminophen (TYLENOL) suppository 650 mg 650 mg, Rectal, Every 4 Hours PRN, Mild Pain, Starting on Mon04/28/20 at 1130, Do not exceed 4 grams of acetaminophen in a 24 hr period. If given for pain, use the following pain scale: Mild Pain = Pain Score of 1-3, CPOT 1-2 Moderate Pain = Pain Score of 4-6, CPOT 3-4 Severe Pain = Pain Score of 7-10, CPOT 5-8 acetaminophen (TYLENOL) tablet 650 mg 650 mg, Oral, Every 4 Hours PRN, Mild Pain, Starting on Mon04/28/20 at 1130, Do not exceed 4 grams of acetaminophen in a 24 hr period. If given for pain, use the following pain scale: Mild Pain = Pain Score of 1-3, CPOT 1-2 Moderate Pain = Pain Score of 4-6, CPOT 3-4 Severe Pain = Pain Score of 7-10, CPOT 5-8 Given 05/13/2020 10:25 AM EDT 650 mg Given 05/13/2020 6:38 AM EDT 650 mg Given 05/12/2020 2:06 PM EDT 650 mg acetaminophen (TYLENOL) tablet 650 mg 650 mg, Oral, Every 4 Hours PRN, Mild Pain, Starting on Mon04/29/20 at 2032 Given 05/06/2020 3:56 AM EDT 325 mg Given 05/04/2020 2:20 PM EDT 650 mg Given 05/02/2020 3:27 AM EDT 650 mg albumin human 25 % IV SOLN 12.5 g 12.5 g, Intravenous, As Needed, Hypotension During Dialysis, Starting on Mon05/11/20 at 0000, For 4 doses, Maintain SBP Greater Than 100 During Dialysis. May repeat x 3 doses (4 doses total), Indications: Hemodialysis ProcedureIndications:Hemodialysis Procedure albumin human 25 % IV SOLN 12.5 g 12.5 g, Intravenous, As Needed, Hypotension During Dialysis, Starting on Mon05/13/20 at 0434, For 4 doses, Maintain SBP Greater Than 100 during Dialysis. May repeat x 3 doses (4 doses total), Indications: Hemodialysis ProcedureIndications:Hemodialysis Procedure albumin human 25 % IV SOLN 50 g 50 g, Intravenous, As Needed, Hypotension During Dialysis, Starting on Mon04/29/20 at 0000, For 2 doses, Maintain SBP Greater Than 90 During Dialysis. May repeat x 3 doses (4 doses total), Indications: Hemodialysis ProcedureIndications:Hemodialysis Procedure New Bag 04/28/2020 4:02 PM E DT 50 g aspirin chewable tablet 81 mg 81 mg, Oral, Daily, First dose on Mon04/28/20 at 1621, Herbal/drug interaction: Avoid use with ginkgo biloba. Do not exceed 4 grams of aspirin in a 24 hr period. If given for pain, use the following pain scale: Mild Pain = Pain Score of 1-3, CPOT 1-2 Moderate Pain = Pain Score of 4-6, CPOT 3-4 Severe Pain = Pain Score of 7-10, CPOT 5-8 Given 05/03/2020 8:03 AM EDT 81 mg Given 05/02/2020 8:34 AM EDT 81 mg Given 05/01/2020 12:20 PM EDT 81 mg baclofen (LIORESAL) tablet 10 mg 10 mg, Oral, Every 6 Hours Scheduled, First dose on Mon05/03/20 at 1215, Take with food if GI upset occurs. Given 05/05/2020 5:22 AM EDT 10 mg Given 05/04/2020 12:34 PM EDT 10 mg Given 05/04/2020 4:40 AM EDT 10 mg bisacodyl (DULCOLAX) EC tablet 10 mg 10 mg, Oral, Daily PRN, Constipation, Starting on Mon05/12/20 at 1639, Swallow whole. Do not crush, split, or chew tablet. bisacodyl (DULCOLAX) suppository 10 mg 10 mg, Rectal, Daily, First dose on Mon05/12/20 at 1730 carBAMazepine (TEGretol) tablet 200 mg 200 mg, Oral, Nightly, First dose on Mon04/28/20 at 2100, Caution: Look alike/sound alike drug alert. Take with food. Avoid grapefruit juice. Given 05/12/2020 10:48 PM EDT 200 mg Given 05/11/2020 8:06 PM EDT 200 mg Given 05/10/2020 10:21 PM EDT 200 mg cefTRIAXone (ROCEPHIN) 1 g/100 mL 0.9% NS (MBP) 1 g, Intravenous, Administer over 30 Minutes, Once, On Mon04/28/20 at 0652, For 1 dose, Caution: Look alike/sound alike drug alert. Break seal and mix to activiate vial before use., Indications: Bone and/or Joint InfectionIndications:Bone and/or Joint Infection New 04/28/2020 8:08 AM EDT 1 g cefTRIAXone (ROCEPHIN) 2 g/100 mL 0.9% NS IVPB (MBP) 2 g, Intravenous, Administer over 30 Minutes, Every 24 Hours, First dose on Mon05/01/20 at 2000, For 7 doses, Caution: Look alike/sound alike drug alert. Break seal and mix to activiate vial before use., Indications: Bone and/or Joint InfectionIndications:Bone and/or Joint Infection New Bag 05/06/2020 9:52 PM EDT 2 g New Bag 05/05/2020 7:58 PM EDT 2 g New Bag 05/03/2020 8:13 PM EDT 2 g cycloSPORINE modified (NEORAL) capsule 50 mg 50 mg, Oral, 2 Times Daily, First dose (after last reorder) on Mon04/28/20 at 2245, Caution: Look alike/sound alike drug alert. {BKC} Avoid grapefruit juice. Avoid use with Randall's Wort products. Given 05/13/2020 10:50 AM EDT 50 mg Given 05/12/2020 10:50 PM EDT 50 mg Given 05/12/2020 9:50 AM EDT 50 mg dextrose (D50W) 25 g/ 50mL Intravenous Solution 25 g 25 g, Intravenous, Every 15 Minutes PRN, Low Blood Sugar, Blood Sugar Less Than 70, Starting on Mon04/28/20 at 1206, Blood sugar less than 70; patient has IV access - Unresponsive, NPO or Unable To Safely Swallow dextrose (GLUTOSE) oral gel 15 g 15 g, Oral, Every 15 Minutes PRN, Low Blood Sugar, Blood sugar less than 70, Starting on Mon04/28/20 at 1206, BS<70, Patient Alert, Is not NPO, Can safely swallow. docusate sodium (COLACE) capsule 100 mg 100 mg, Oral, 2 Times Daily, First dose on Mon04/28/20 at 1132, Swallow whole. Do not open, crush, or chew capsule. Given 05/13/2020 10:49 AM EDT 100 mg Given 05/12/2020 10:47 PM EDT 100 mg Given 05/12/2020 9:51 AM EDT 100 mg doxycycline (MONODOX) capsule 100 mg 100 mg, Oral, Every 12 Hours Scheduled, First dose on Mon05/07/20 at 2100, For 7 days, Take with food if GI upset occurs. Avoid taking antacids, iron, or dairy products within 2 hours of dose., Indications: Bone and/or Joint InfectionIndications:Bone and/or Joint Infection Given 05/13/2020 10:49 AM EDT 100 mg Given 05/12/2020 10:48 PM EDT 100 mg Given 05/12/2020 9:51 AM EDT 100 mg entecavir (BARACLUDE) tablet 0.5 mg (PATIENT SUPPLIED MED) 0.5 mg, Oral, Weekly, First dose on Mon04/28/20 at 2130, ^^^^TUESDAYS^^^ Give 2 hours before or 2 hours after a meal., Drug Name: entevavir 0.5 mg tablet, Reason for Non-Formulary: continuation of home meds Given 05/12/2020 9:54 AM EDT 0.5 mg Given 05/05/2020 8:29 AM EDT 0.5 mg Given 04/28/2020 10:15 PM EDT 0.5 mg epoetin giancarlo-epbx (RETACRIT) injection 20,000 Units 20,000 Units, Subcutaneous, 3 Times Weekly, First dose on Mon05/01/20 at 0900, Indications: Anemia associated with Chronic Renal FailureIndications:Anemia associated with Chronic Renal Failure Given 05/13/2020 10:53 AM EDT 20,000 Units Othe r Given 05/06/2020 12:11 PM EDT 20,000 Units Other Given 05/04/2020 11:54 AM EDT 20,000 Units Other famotidine (PEPCID) injection 20 mg 20 mg, Intravenous, Once, On Mon04/29/20 at 1548, For 1 dose, Dilute to 10 mL total volume and give IV push over 2 minutes. Given 04/29/2020 4:05 PM EDT 20 m g famotidine (PEPCID) tablet 10 mg 10 mg, Oral, Daily, First dose (after last modification) on Mon04/29/20 at 0900 Given 05/13/2020 10:49 AM EDT 10 mg Given 05/12/2020 9:51 AM EDT 10 mg Given 05/11/2020 4:29 PM EDT 10 mg fentaNYL citrate (PF) (SUBLIMAZE) injection 50 mcg 50 mcg, Intravenous, Every 5 Minutes PRN, Severe Pain, Starting on Mon04/29/20 at 1953, For 4 doses, Use filter needle to withdraw dose from ampule. {MICHELE} Caution: Look alike/sound alike drug alert If given for pain, use the following pain scale: Mild Pain = Pain Score of 1-3, CPOT 1-2 Moderate Pain = Pain Score of 4-6, CPOT 3-4 Severe Pain = Pain Score of 7-10, CPOT 5-8 Given 04/29/2020 7:45 PM EDT 50 mcg Given 04/29/2020 7:34 PM EDT 50 mcg gabapentin (NEURONTIN) capsule 100 mg 100 mg, Oral, Nightly, First dose on Mon04/28/20 at 2100, {MICHELE} Given 05/04/2020 9:13 PM EDT 100 mg Given 05/03/2020 8:13 PM EDT 100 mg Given 05/02/2020 7:51 PM EDT 100 mg glucagon (human recombinant) (GLUCAGEN DIAGNOSTIC) injection 1 mg 1 mg, Subcutaneous, Every 15 Minutes PRN, Low Blood Sugar, Blood Glucose Less Than 70, Starting on Mon04/28/20 at 1206, Blood Glucose Less Than 70 - Patient Without IV Access - Unresponsive, NPO or Unable To Safely Swallow hydrALAZINE (APRESOLINE) injection 10 mg 10 mg, Intravenous, Once, On Mon05/05/20 at 0215, For 1 dose, As needed for SBP greater than 180 Caution: Look alike/sound alike drug alert Given 05/05/2020 1:46 AM EDT 10 mg hydrALAZINE (APRESOLINE) injection 10 mg 10 mg, Intravenous, Once, On Bobbi 05/07/20 at 0130, For 1 dose, As needed for SBP greater than 190. Caution: Look alike/sound alike drug alert Given 05/07/2020 12:53 AM EDT 10 mg hydrALAZINE (APRESOLINE) tablet 100 mg 100 mg, Oral, 3 Times Daily, First dose on Mon04/28/20 at 2100, Caution: Look alike/sound alike drug alert Given 05/13/2020 10:48 AM EDT 100 mg Given 05/12/2020 10:48 PM EDT 100 mg Given 05/12/2020 4:48 PM EDT 100 mg HYDROcodone-acetaminophen (NORCO) 5-325 MG per tablet 1 tablet 1 tablet, Oral, Every 6 Hours PRN, Moderate Pain, Starting on Mon04/29/20 at 0326, For 7 days, [MICHELE] Do not exceed 4 grams of acetaminophen in a 24 hr period. If given for pain, use the following pain scale: Mild Pain = Pain Score of 1-3, CPOT 1-2 Moderate Pain = Pain Score of 4-6, CPOT 3-4 Severe Pain = Pain Score of 7-10, CPOT 5-8 Given 04/29/2020 9:48 A M EDT 1 tablet Given 04/29/2020 3:42 AM EDT 1 tablet HYDROcodone-acetaminophen (NORCO) 5-325 MG per tablet 1 tablet 1 tablet, Oral, Every 4 Hours PRN, Moderate Pain, Starting on Mon04/29/20 at 1045, [MICHELE] Do not exceed 4 grams of acetaminophen in a 24 hr period. If given for pain, use the following pain scale: Mild Pain = Pain Score of 1-3, CPOT 1-2 Moderate Pain = Pain Score of 4-6, CPOT 3-4 Severe Pain = Pain Score of 7-10, CPOT 5-8 Given 05/03/2020 8:13 P M EDT 1 tablet Given 05/03/2020 8:03 AM EDT 1 tablet Given 05/02/2020 10:59 PM EDT 1 tablet HYDROcodone-acetaminophen (NORCO) 5-325 MG per tablet 1 tablet 1 tablet, Oral, Every 6 Hours PRN, Moderate Pain, Starting on Mon05/11/20 at 0952, For 7 days, [MICHELE] Do not exceed 4 grams of acetaminophen in a 24 hr period. If given for pain, use the following pain scale: Mild Pain = Pain Score of 1-3, CPOT 1-2 Moderate Pain = Pain Score of 4-6, CPOT 3-4 Severe Pain = Pain Score of 7-10, CPOT 5-8 Given 05/13/2020 11:28 AM EDT 1 tablet Given 05/12/2020 9:27 PM EDT 1 tablet Given 05/12/2020 9:52 AM EDT 1 tablet HYDROmorphone (DILAUDID) injection 0.25 mg 0.25 mg, Intravenous, Once, On Mon05/05/20 at 0345, For 1 dose, If given for pain, use the following pain scale: Mild Pain = Pain Score of 1-3, CPOT 1-2 Moderate Pain = Pain Score of 4-6, CPOT 3-4 Severe Pain = Pain Score of 7-10, CPOT 5-8 Given 05/05/2020 3:00 AM EDT HYDROmorphone (DILAUDID) injection 0.25 mg 0.25 mg, Intravenous, Every 4 Hours PRN, Severe Pain, Starting on Bobbi 05/07/20 at 1708, If given for pain, use the following pain scale: Mild Pain = Pain Score of 1-3, CPOT 1-2 Moderate Pain = Pain Score of 4-6, CPOT 3-4 Severe Pain = Pain Score of 7-10, CPOT 5-8 Given 05/08/2020 12:10 AM EDT 0.25 mg HYDROmorphone (DILAUDID) injection 0.5 mg 0.5 mg, Intravenous, Once, On Mon04/29/20 at 0030, For 1 dose, If given for pain, use the following pain scale: Mild Pain = Pain Score of 1-3, CPOT 1-2 Moderate Pain = Pain Score of 4-6, CPOT 3-4 Severe Pain = Pain Score of 7-10, CPOT 5-8 Given 04/29/2020 12:00 AM EDT 0.5 mg HYDROmorphone (DILAUDID) injection 0.5 mg 0.5 mg, Intravenous, Once, On Mon04/29/20 at 1130, For 1 dose, If given for pain, use the following pain scale: Mild Pain = Pain Score of 1-3, CPOT 1-2 Moderate Pain = Pain Score of 4-6, CPOT 3-4 Severe Pain = Pain Score of 7-10, CPOT 5-8 Given 04/29/2020 11:36 AM EDT 0.5 mg HYDROmorphone (DILAUDID) injection 0.5 mg 0.5 mg, Intravenous, Every 3 Hours PRN, Severe Pain, Starting on Mon04/29/20 at 1217, If given for pain, use the following pain scale: Mild Pain = Pain Score of 1-3, CPOT 1-2 Moderate Pain = Pain Score of 4-6, CPOT 3-4 Severe Pain = Pain Score of 7-10, CPOT 5-8 Given 05/04/2020 4:40 AM EDT 0.5 mg Given 05/04/2020 12:28 AM EDT 0.5 mg Given 05/03/2020 9:31 PM EDT 0.5 mg HYDROmorphone (DILAUDID) injection 0.5 mg 0.5 mg, Intravenous, Every 2 Hours PRN, Severe Pain, Starting on Mon04/29/20 at 2032, For 7 days, If given for pain, use the following pain scale: Mild Pain = Pain Score of 1-3, CPOT 1-2 Moderate Pain = Pain Score of 4-6, CPOT 3-4 Severe Pain = Pain Score of 7-10, CPOT 5-8 Given 05/04/2020 12:34 PM EDT 0.5 mg Given 04/30/2020 6:14 AM EDT 0.5 mg Given 04/30/2020 3:38 AM EDT 0.5 mg HYDROmorphone (DILAUDID) injection 0.5 mg 0.5 mg, Intravenous, Every 5 Minutes PRN, Severe Pain, Starting on Mon04/29/20 at 1950, For 4 doses, If given for pain, use the following pain scale: Mild Pain = Pain Score of 1-3, CPOT 1-2 Moderate Pain = Pain Score of 4-6, CPOT 3-4 Severe Pain = Pain Score of 7-10, CPOT 5-8 Given 04/29/2020 8:20 PM EDT 0.5 mg Given 04/29/2020 8:00 PM EDT 0.5 mg Given 04/29/2020 7:50 PM EDT 0.5 mg HYDROmorphone (DILAUDID) injection 0.5 mg 0.5 mg, Intravenous, Every 4 Hours PRN, Severe Pain, Starting on Mon05/04/20 at 1330, If given for pain, use the following pain scale: Mild Pain = Pain Score of 1-3, CPOT 1-2 Moderate Pain = Pain Score of 4-6, CPOT 3-4 Severe Pain = Pain Score of 7-10, CPOT 5-8 Given 05/05/2020 1:46 AM EDT 0.5 mg HYDROmorphone (DILAUDID) injection 1 mg 1 mg, Intravenous, Once, On Mon04/29/20 at 0200, For 1 dose, {MICHELE} Caution: Look alike/sound alike drug alert If given for pain, use the following pain scale: Mild Pain = Pain Score of 1-3, CPOT 1-2 Moderate Pain = Pain Score of 4-6, CPOT 3-4 Severe Pain = Pain Score of 7-10, CPOT 5-8 Given 04/29/2020 1:35 AM EDT 1 mg HYDROmorphone (DILAUDID) injection 1 mg 1 mg, Intravenous, Every 2 Hours PRN, Severe Pain, Starting on Mon05/02/20 at 1247, For 7 days, {MICHELE} Caution: Look alike/sound alike drug alert If given for pain, use the following pain scale: Mild Pain = Pain Score of 1-3, CPOT 1-2 Moderate Pain = Pain Score of 4-6, CPOT 3-4 Severe Pain = Pain Score of 7-10, CPOT 5-8 Given 05/03/2020 9:20 AM EDT 1 mg Given 05/03/2020 12:23 AM EDT 1 mg insulin detemir (LEVEMIR) injection 15 Units 15 Units, Subcutaneous, Nightly, First dose on Mon05/01/20 at 2100, {BKC} Given 05/12/2020 10:58 PM EDT 15 Units Left Arm Given 05/11/2020 8:17 PM EDT 15 Units Ri ght Upper Abdomen Given 05/10/2020 10:15 PM EDT 15 Units R ight Lower Abdomen insulin detemir (LEVEMIR) injection 6 Units 6 Units, Subcutaneous, Nightly, First dose on Mon04/30/20 at 2100, {BKC} Given 04/30/2020 8:32 PM EDT 6 Units Right Lower Abdomen insulin lispro (humaLOG) injection 0-9 Units 0-9 Units, Subcutaneous, 3 Times Daily Before Meals, First dose on Mon04/28/20 at 1208, Correction - Moderate Dose. 40-60 units/day total insulin dose or average weight, on oral agents Blood glucose 150-199 mg/dL - 2 units Blood glucose 200-249 mg/dL - 4 units Blood glucose 250-299 mg/dL - 6 units Blood glucose 300-349 mg/dL - 7 units Blood glucose 350-400 mg/dL - 8 units Blood glucose greater than 400 mg/dL - 9 units and call provider {BKC} Caution: Look alike/sound alike drug alert{BKC} Given 05/13/2020 11:36 AM EDT 2 Units Right Arm Given 05/08/2020 8:57 AM EDT 2 Units Le ft Lower Abdomen Given 05/07/2020 5:35 PM EDT 2 Units Le ft Arm insulin lispro (humaLOG) injection 4 Units 4 Units, Subcutaneous, Once As Needed, High Blood Sugar, Starting on Mon04/29/20 at 1950, For 1 dose, {BKC} Caution: Look alike/sound alike drug alert{BKC} Given 04/29/2020 8:00 PM EDT 4 Units Right Arm labetalol (NORMODYNE,TRANDATE) injection 10 mg 10 mg, Intravenous, Once, On Mon05/05/20 at 1045, For 1 dose, Give by slow IV Push each 20mg (or less) over 2 minutes Given 05/05/2020 9:53 AM EDT 10 mg labetalol (NORMODYNE,TRANDATE) injection 10 mg 10 mg, Intravenous, Every 8 Hours PRN, High Blood Pressure, Starting on Mon05/05/20 at 1617, As needed for SBP greater than 180 with HR over 70. Give by slow IV Push each 20mg (or less) over 2 minutes Given 05/06/2020 9:52 PM EDT 10 mg lidocaine PF 1% (XYLOCAINE) injection 0.5 mL 0.5 mL, Injection, Once As Needed, IV Start, Starting on Mon04/29/20 at 1545, For 1 dose Given 04/29/2020 4:05 PM EDT 0.4 mL lisinopril (PRINIVIL,ZESTRIL) tablet 10 mg 10 mg, Oral, Every 24 Hours Scheduled, First dose on Mon05/05/20 at 1500 Given 05/10/2020 8:25 AM EDT 10 mg Given 05/09/2020 10:12 AM EDT 10 mg Given 05/08/2020 8:58 AM EDT 10 mg lisinopril (PRINIVIL,ZESTRIL) tablet 20 mg 20 mg, Oral, Every 24 Hours Scheduled, First dose (after last modification) on Mon05/11/20 at 0900 Given 05/12/2020 9:52 AM EDT 20 mg Given 05/11/2020 4:31 PM EDT 20 mg lisinopril (PRINIVIL,ZESTRIL) tablet 40 mg 40 mg, Oral, Every 12 Hours Scheduled, First dose (after last modification) on Mon05/12/20 at 2100 Given 05/13/2020 10:49 AM EDT 40 mg Given 05/12/2020 10:46 PM EDT 40 mg LORazepam (ATIVAN) injection 0.5 mg 0.5 mg, Intravenous, Once, On Mon05/05/20 at 1715, For 1 dose, {MICHELE} Caution: Look alike/sound alike drug alert Given 05/05/2020 5:13 PM EDT 0.5 mg LORazepam (ATIVAN) tablet 0.25 mg 0.25 mg, Oral, Once, On Mon04/28/20 at 0941, For 1 dose, {MICHELE} Caution: Look alike/sound alike drug alert Given 04/28/2020 9:48 AM EDT 0.25 mg metoprolol tartrate (LOPRESSOR) injection 5 mg 5 mg, Intravenous, Once, On Mon05/03/20 at 0545, For 1 dose Given 05/03/2020 5:20 AM EDT 5 mg metoprolol tartrate (LOPRESSOR) tablet 100 mg 100 mg, Oral, Every 12 Hours Scheduled, First dose on Mon04/28/20 at 2100 Given 05/03/2020 8:12 PM EDT 100 mg Given 05/03/2020 8:03 AM EDT 100 mg Given 05/02/2020 7:51 PM EDT 100 mg metoprolol tartrate (LOPRESSOR) tablet 100 mg 100 mg, Oral, Every 8 Hours Scheduled, First dose (after last modification) on Mon05/04/20 at 1400 Given 05/13/2020 10:49 AM EDT 100 mg Given 05/12/2020 10:46 PM EDT 100 mg Given 05/12/2020 4:48 PM EDT 100 mg mycophenolate (CELLCEPT) capsule 250 mg (PATIENT SUPPLIED MED) 250 mg, Oral, 2 Times Daily, First dose on Mon04/28/20 at 2100, Take on an empty stomach Do not crush or open capsules Given 05/03/2020 8:04 AM EDT 250 mg Given 05/02/2020 8:02 PM EDT 250 mg Given 05/02/2020 8:36 AM EDT 250 mg mycophenolate (CELLCEPT) capsule 250 mg 250 mg, Oral, Daily, First dose (after last modification) on Mon05/04/20 at 0900, Take on an empty stomach Do not crush or open capsules Given 05/13/2020 10:50 AM EDT 250 mg Given 05/12/2020 9:51 AM EDT 250 mg Given 05/11/2020 4:33 PM EDT 250 mg mycophenolate (CELLCEPT) capsule 250 mg 250 mg, Oral, Nightly, First dose (after last modification) on Mon05/05/20 at 2100, Take on an empty stomach Do not crush or open capsules Given 05/12/2020 10:45 PM EDT 250 mg Given 05/11/2020 8:13 PM EDT 250 mg Given 05/10/2020 10:17 PM EDT 250 mg mycophenolate (CELLCEPT) capsule 500 mg 500 mg, Oral, Nightly, First dose on Mon05/03/20 at 2100, Take on an empty stomach Do not crush or open capsules Given 05/03/2020 8:22 PM EDT 500 mg NIFEdipine XL (PROCARDIA XL) 24 hr tablet 90 mg 90 mg, Oral, 2 Times Daily, First dose on Mon04/28/20 at 2100, Caution: Look alike/sound alike drug alert. Avoid grapefruit juice. Given 05/13/2020 10:49 AM EDT 90 mg Given 05/12/2020 10:47 PM EDT 90 mg Given 05/12/2020 9:51 AM EDT 90 mg ondansetron (ZOFRAN) injection 4 mg 4 mg, Intravenous, Every 8 Hours PRN, Nausea, Vomiting, Starting on Mon04/28/20 at 1634 Given 05/08/2020 2:30 AM EDT 4 mg Given 05/05/2020 2:51 AM EDT 4 mg Given 04/29/2020 3:15 AM EDT 4 mg oxyCODONE (ROXICODONE) immediate release tablet 10 mg 10 mg, Oral, Every 6 Hours, First dose on Mon05/03/20 at 1030, For 7 days, {MICHELE} If given for pain, use the following pain scale: Mild Pain = Pain Score of 1-3, CPOT 1-2 Moderate Pain = Pain Score of 4-6, CPOT 3-4 Severe Pain = Pain Score of 7-10, CPOT 5-8 Given 05/10/2020 4:13 AM EDT 10 mg Given 05/09/2020 9:29 PM EDT 10 mg Given 05/09/2020 4:51 PM EDT 10 mg pantoprazole (PROTONIX) injection 40 mg 40 mg, Intravenous, 2 Times Daily Before Meals, First dose on Mon05/03/20 at 1730, Dilute with 10 mL of 0.9% NaCl and give IV push over 2 minutes., Indications: GI BleedIndications:GI Bleed Given 05/05/2020 8:30 AM EDT 40 mg Given 05/04/2020 11:50 AM EDT 40 mg Given 05/03/2020 6:07 PM EDT 40 mg Pharmacy to dose vancomycin Continuous PRN, Starting on Mon05/13/20 at 0938, Until Mon05/13/20 at 1803, Consult, Antimicrobial Indication: Sepsis, Indications: Bone and/or Joint Infection, SepsisIndications:Bone and/or Joint Infection,Sepsis piperacillin-tazobactam (ZOSYN) 3.375 g in iso-osmotic dextrose 50 ml (premix) 3.375 g, Intravenous, Administer over 4 Hours, Every 12 Hours Scheduled, First dose (after last modification) on Mon04/29/20 at 1300, For 14 doses, Refrigerate, Indications: SepsisIndications:Sepsis New Bag 05/01/2020 2:28 AM EDT 3.375 g New Bag 04/30/2020 4:05 PM EDT 3.375 g New Bag 04/30/2020 1:53 AM EDT 3.375 g polyethylene glycol (MIRALAX) packet 17 g 17 g, Oral, 2 times daily, First dose (after last modification) on Mon05/01/20 at 1500, Use 4-8 ounces of water, tea, or juice for each 17 gram dose. Given 05/02/2020 8:33 AM EDT 17 g Given 05/01/2020 3:08 PM EDT 17 g polyethylene glycol (MIRALAX) packet 17 g 17 g, Oral, Daily, First dose on Mon05/12/20 at 1730, Use 4-8 ounces of water, tea, or juice for each 17 gram dose. Given 05/13/2020 10:48 AM EDT 17 g sennosides-docusate (PERICOLACE) 8.6-50 MG per tablet 2 tablet 2 tablet, Oral, Nightly, First dose on Mon05/12/20 at 2100 Given 05/12/2020 10:47 PM EDT 2 tablets sodium chloride 0.9 % flush 10 mL 10 mL, Intravenous, Every 12 Hours Scheduled, First dose on Mon04/28/20 at 1132 Given 05/09/2020 9:27 PM EDT 10 mL Given 05/08/2020 9:35 AM EDT 10 mL Given 05/07/2020 8:16 PM EDT 10 mL sodium chloride 0.9 % flush 10 mL 10 mL, Intravenous, As Needed, Line Care, Starting on Mon04/29/20 at 2031 Given 05/03/2020 6:07 PM EDT 10 mL Given 05/01/2020 6:32 PM EDT 10 mL Given 05/01/2020 3:09 PM EDT 10 mL sodium chloride 0.9 % flush 3 mL 3 mL, Intravenous, Every 12 Hours Scheduled, First dose on Mon04/29/20 at 2130 Given 05/08/2020 8:01 PM EDT 3 mL Given 05/03/2020 9:20 AM EDT 3 mL Given 05/02/2020 11:40 AM EDT sodium chloride 0.9 % infusion 50 mL/hr, Intravenous, Continuous, Starting on Mon04/29/20 at 1030 Rate/Dose Change 04/29/2020 7:23 PM EDT 600 mL/hr New Bag 04/29/2020 5:04 PM EDT 100 mL/hr Rate/Dose Change 04/29/2020 3:05 PM EDT 50 mL/hr 50 mL/h r sodium chloride 0.9 % infusion 9 mL/hr, Intravenous, Continuous PRN, Start Prior to Surgery, Starting on Mon04/29/20 at 1508 New Bag 04/29/2020 4:08 PM EDT 9 mL/hr 9 mL/hr temazepam (RESTORIL) capsule 15 mg 15 mg, Oral, Nightly PRN, Sleep, Starting on Mon04/29/20 at 2031, For 10 days, {MICHELE} Given 05/01/2020 11:31 PM EDT 15 mg Given 04/30/2020 8:33 PM EDT 15 mg Given 04/29/2020 9:09 PM EDT 15 mg terazosin (HYTRIN) capsule 5 mg 5 mg, Oral, Nightly PRN, SBP greater than 160, Starting on Mon04/29/20 at 1429 Given 05/07/2020 7:03 AM EDT 5 mg Given 05/02/2020 11:05 PM EDT 5 mg Given 05/02/2020 3:34 AM EDT 5 mg vancomycin 2500 mg/500 mL 0.9% NS IVPB ([facility]) 2,500 mg (20 mg/kg ? 125 kg), Intravenous, Administer over 150 Minutes, Once, On Mon04/28/20 at 0652, For 1 dose, Indications: Bone and/or Joint InfectionIndications:Bone and/or Joint Infection New Bag 04/28/2020 10:26 AM EDT 2,500 mg 200 mL/ hr vancomycin in dextrose 5% 150 mL (VANCOCIN) IVPB 750 mg 750 mg, Intravenous, Administer over 60 Minutes, Once, On Mon05/01/20 at 1230, For 1 dose, Indications: SepsisIndications:Sepsis New Bag 05/01/2020 4:04 PM EDT 750 mg vancomycin in dextrose 5% 150 mL (VANCOCIN) IVPB 750 mg 750 mg, Intravenous, Administer over 60 Minutes, Once, On Mon05/04/20 at 1600, For 1 dose, Indications: SepsisIndications:Sepsis Restarted 05/04/2020 3:34 PM EDT New Bag 05/04/2020 3:08 PM EDT 750 mg vancomycin in dextrose 5% 150 mL (VANCOCIN) IVPB 750 mg 750 mg, Intravenous, Administer over 60 Minutes, Once, On Mon05/06/20 at 1600, For 1 dose, Indications: Bone and/or Joint InfectionIndications:Bone and/or Joint Infection New 05/06/2020 5:50 PM EDT 750 mg vancomycin in dextrose 5% 150 mL (VANCOCIN) IVPB 750 mg 750 mg, Intravenous, Administer over 60 Minutes, User Specified (Once per day on Mon), First dose on Mon05/08/20 at 1700, For 5 doses, Administer following dialysis sessions, Indications: Bone and/or Joint InfectionIndications:Bone and/or Joint Infection New 05/13/2020 10:48 AM EDT 750 mg New 05/11/2020 3:30 PM EDT 750 mg New 05/08/2020 4:46 PM EDT 750 mg documented in this encounter Active and Recently Administered Medications Times are shown in EDT. Scheduled Medication Order 05/11/2020 05/12/2020 05/13/2020 bisacodyl (DULCOLAX) suppository 10 mg 10 mg, Rectal, Daily, First dose on Mon05/12/20 at 1730 1753 (Not Given - Provider: Karli Carroll RN - Reason: Patient/family refused) 1204 (Not Given - Provider: Sylvain Cadet RN - Reason: Patient/family refused) carBAMazepine (TEGretol) tablet 200 mg 200 mg, Oral, Nightly, First dose on Mon04/28/20 at 2100, Caution: Look alike/sound alike drug alert. Take with food. Avoid grapefruit juice. 2005 (Given - Provider: Aydin Keller RN) 2247 (Given - Provider: Aydin Keller RN) cycloSPORINE modified (NEORAL) capsule 50 mg 50 mg, Oral, 2 Times Daily, First dose (after last reorder) on Mon04/28/20 at 2245, Caution: Look alike/sound alike drug alert. {BKC} Avoid grapefruit juice. Avoid use with Randall's Wort products. 1632 (Given - Provider: Khushi Blood RN)2008 (Given - Provider: Aydin Keller RN) 0950 (Given - Provider: Karli Carroll RN)2249 (Given - Provider: Aydin Keller RN) 1050 (Given - Provider: Sylvain Cadet, JANA) docusate sodium (COLACE) capsule 100 mg 100 mg, Oral, 2 Times Daily, First dose on Mon04/28/20 at 1132, Swallow whole. Do not open, crush, or chew capsule. 1853 (Canceled Entry - Provider: Karli Carroll RN)2006 (Given - Provider: Aydin Keller RN) 51 (Given - Provider: Karli Carroll RN)2246 (Given - Provider: Aydin Keller RN) 104 (Given - Provider: Sylvain Cadet, JANA) doxycycline (MONODOX) capsule 100 mg 100 mg, Oral, Every 12 Hours Scheduled, First dose on Mon05/07/20 at 2100, For 7 days, Take with food if GI upset occurs. Avoid taking antacids, iron, or dairy products within 2 hours of dose., Indications: Bone and/or Joint Infection 1631 (Given - Provider: Khushi Blood RN)2006 (Given - Provider: Aydin Keller RN) 51 (Given - Provider: Karli Carroll RN)2247 (Given - Provider: Aydin Keller RN) 104 (Given - Provider: Sylvain Cadet, JANA) entecavir (BARACLUDE) tablet 0.5 mg (PATIENT SUPPLIED MED) 0.5 mg, Oral, Weekly, First dose on Mon04/28/20 at 2130, ^^^^TUESDAYS^^^ Give 2 hours before or 2 hours after a meal., Drug Name: entevavir 0.5 mg tablet, Reason for Non-Formulary: continuation of home meds 0954 (Given - Provider: Karli Carroll RN) epoetin giancarlo-epbx (RETACRIT) injection 20,000 Units 20,000 Units, Subcutaneous, 3 Times Weekly, First dose on Mon05/01/20 at 0900, Indications: Anemia associated with Chronic Renal Failure 185 (Canceled Entry - Provider: Karli Carroll RN) 1053 (Given - Provider: Sylvain Cadet, RN) famotidine (PEPCID) tablet 10 mg 10 mg, Oral, Daily, First dose (after last modification) on Mon04/29/20 at 0900 1629 (Given - Provider: Khushi Blood RN) 0951 (Given - Provider: Karli Carroll RN) 1049 (Given - Provider: Sylvain Cadet, JANA) hydrALAZINE (APRESOLINE) tablet 100 mg 100 mg, Oral, 3 Times Daily, First dose on Mon04/28/20 at 2100, Caution: Look alike/sound alike drug alert 1631 (Given - Provider: Khushi Blood RN)1854 (Canceled Entry - Provider: Karli Carroll RN)2008 (Given - Provider: Aydin Keller, JANA) 0951 (Given - Provider: Karli Carroll RN)1648 (Given - Provider: Karli Carroll RN)2248 (Given - Provider: Aydin Keller, JANA) 1048 (Given - Provider: Sylvain Cadet, JANA)1600 (Due) insulin detemir (LEVEMIR) injection 15 Units 15 Units, Subcutaneous, Nightly, First dose on Mon05/01/20 at 2100, {BK} 2017 (Given - Provider: Aydin Keller, JANA) 2258 (Given - Provider: Aydin Keller, JANA) insulin lispro (humaLOG) injection 0-9 Units 0-9 Units, Subcutaneous, 3 Times Daily Before Meals, First dose on Mon04/28/20 at 1208, Correction - Moderate Dose. 40-60 units/day total insulin dose or average weight, on oral agents Blood glucose 150-199 mg/dL - 2 units Blood glucose 200-249 mg/dL - 4 units Blood glucose 250-299 mg/dL - 6 units Blood glucose 300-349 mg/dL - 7 units Blood glucose 350-400 mg/dL - 8 units Blood glucose greater than 400 mg/dL - 9 units and call provider {BKC} Caution: Look alike/sound alike drug alert{BKC} 1826 (Not Given - Provider: Karli Carroll RN - Reason: Order parameters not met)1827 (Canceled Entry - Provider: Karli Carroll RN)1854 (Canceled Entry - Provider: Karli Carroll RN) 0952 (Not Given - Provider: Karli Carroll RN - Reason: Order parameters not met)1137 (Not Given - Provider: Karli Carroll RN - Reason: Order parameters not met)1750 (Not Given - Provider: Karli Carroll RN - Reason: Order parameters not met) 1050 (Not Given - Provider: Sylvain Cadet RN - Reason: Order parameters not met)1136 (Given - Provider: Sylvain Cadet, JANA) lisinopril (PRINIVIL,ZESTRIL) tablet 20 mg (CANCELED) 20 mg, Oral, Every 24 Hours Scheduled, First dose (after last modification) on Mon05/11/20 at 0900 1631 (Given - Provider: Khushi Blood RN) 0952 (Given - Provider: Karli Carroll RN) lisinopril (PRINIVIL,ZESTRIL) tablet 40 mg 40 mg, Oral, Every 12 Hours Scheduled, First dose (after last modification) on Mon05/12/20 at 2100 2246 (Given - Provider: Aydin Keller RN) 1049 (Given - Provider: Sylvain Cadet RN) metoprolol tartrate (LOPRESSOR) tablet 100 mg 100 mg, Oral, Every 8 Hours Scheduled, First dose (after last modification) on Mon05/04/20 at 1400 0600 (Due)1631 (Given - Provider: Khushi Blood RN)2001 (Given - Provider: Aydin Keller RN)2200 (Canceled Entry - Provider: Aydin Keller RN) 0514 (Given - Provider: Aydin Keller RN)1648 (Given - Provider: Karli Carroll RN)224 (Given - Provider: Aydin Keller RN) 1049 (Given - Provider: Sylvain Cadet, RN)1550 (Not Given - Provider: Karli Carroll RN - Reason: Patient/family refused) mycophenolate (CELLCEPT) capsule 250 mg 250 mg, Oral, Daily, First dose (after last modification) on Mon05/04/20 at 0900, Take on an empty stomach Do not crush or open capsules 163 (Given - Provider: Khushi Blood RN) 0951 (Given - Provider: Karli Carroll RN) 1050 (Given - Provider: Sylvain Cadet, JANA) mycophenolate (CELLCEPT) capsule 250 mg 250 mg, Oral, Nightly, First dose (after last modification) on Mon05/05/20 at 2100, Take on an empty stomach Do not crush or open capsules 2012 (Given - Provider: Aydin Keller RN) 2244 (Given - Provider: Aydin Keller RN) NIFEdipine XL (PROCARDIA XL) 24 hr tablet 90 mg 90 mg, Oral, 2 Times Daily, First dose on Mon04/28/20 at 2100, Caution: Look alike/sound alike drug alert. Avoid grapefruit juice. 1628 (Given - Provider: Khushi Blood RN)2004 (Given - Provider: Aydin Keller RN) 0951 (Given - Provider: Karli Carroll RN)224 (Given - Provider: Aydin Keller RN) 1049 (Given - Provider: Sylvain Cadet, JANA) polyethylene glycol (MIRALAX) packet 17 g 17 g, Oral, Daily, First dose on Mon05/12/20 at 1730, Use 4-8 ounces of water, tea, or juice for each 17 gram dose. 1753 (Not Given - Provider: Karli Carroll RN - Reason: Patient/family refused) 1048 (Given - Provider: Sylvain Cadet, JANA) sennosides-docusate (PERICOLACE) 8.6-50 MG per tablet 2 tablet 2 tablet, Oral, Nightly, First dose on Mon05/12/20 at 2100 2247 (Given - Provider: Aydin Keller RN) sodium chloride 0.9 % flush 10 mL 10 mL, Intravenous, Every 12 Hours Scheduled, First dose on Mon04/28/20 at 1132 1854 (Canceled Entry - Provider: Karli Carroll RN)2025 (Canceled Entry - Provider: Aydin Keller RN - Comment: loss of IV access) 0953 (Not Given - Provider: Krali Carroll RN - Reason: Order parameters not met)231 (Canceled Entry - Provider: Aydin Keller RN - Comment: no IV access) 105 (Canceled Entry - Provider: Sylvain Cadet RN) sodium chloride 0.9 % flush 3 mL 3 mL, Intravenous, Every 12 Hours Scheduled, First dose on Mon04/29/20 at 2130 1854 (Canceled Entry - Provider: Karli Carroll RN)2025 (Not Given - Provider: Aydin Keller RN - Reason: Loss of IV access) 0953 (Not Given - Provider: Karli Carroll RN - Reason: Order parameters not met)231 (Canceled Entry - Provider: Aydin Keller RN - Comment: no IV access) 105 (Canceled Entry - Provider: Sylvain Cadet, JANA) vancomycin in dextrose 5% 150 mL (VANCOCIN) IVPB 750 mg 750 mg, Intravenous, Administer over 60 Minutes, User Specified (Once per day on Mon), First dose on Mon05/08/20 at 1700, For 5 doses, Administer following dialysis sessions, Indications: Bone and/or Joint Infection 1530 (New Bag - Provider: Khushi Blood RN) 1048 (New Bag - Provider: Sylvain Cadet, JANA) PRN Medication Order 05/11/2020 05/12/2020 05/13/2020 acetaminophen (TYLENOL) 160 MG/5ML solution 650 mg(Linked Group 1) 650 mg, Oral, Every 4 Hours PRN, Mild Pain, Starting on Mon04/28/20 at 1130, Do not exceed 4 grams of acetaminophen in a 24 hr period. If given for pain, use the following pain scale: Mild Pain = Pain Score of 1-3, CPOT 1-2 Moderate Pain = Pain Score of 4-6, CPOT 3-4 Severe Pain = Pain Score of 7-10, CPOT 5-8 1406 (Not Given: See Alt - Provider: Roxi Cook RN) 0638 (Not Given: See Alt - Provider: Aydin Keller RN)1025 (Not Given: See Alt - Provider: Marie Samaniego RN) acetaminophen (TYLENOL) suppository 650 mg(Linked Group 1) 650 mg, Rectal, Every 4 Hours PRN, Mild Pain, Starting on Mon04/28/20 at 1130, Do not exceed 4 grams of acetaminophen in a 24 hr period. If given for pain, use the following pain scale: Mild Pain = Pain Score of 1-3, CPOT 1-2 Moderate Pain = Pain Score of 4-6, CPOT 3-4 Severe Pain = Pain Score of 7-10, CPOT 5-8 1406 (Not Given: See Alt - Provider: Roxi Cook RN) 0638 (Not Given: See Alt - Provider: Aydin Keller RN)1025 (Not Given: See Alt - Provider: Marie Samaniego RN) acetaminophen (TYLENOL) tablet 650 mg(Linked Group 1) 650 mg, Oral, Every 4 Hours PRN, Mild Pain, Starting on Mon04/28/20 at 1130, Do not exceed 4 grams of acetaminophen in a 24 hr period. If given for pain, use the following pain scale: Mild Pain = Pain Score of 1-3, CPOT 1-2 Moderate Pain = Pain Score of 4-6, CPOT 3-4 Severe Pain = Pain Score of 7-10, CPOT 5-8 1406 (Given - Provider: Roxi Cook RN) 0638 (Given - Provider: Aydin Keller RN)1025 (Given - Provider: Marie Samaniego RN) acetaminophen (TYLENOL) tablet 650 mg 650 mg, Oral, Every 4 Hours PRN, Mild Pain, Starting on Mon04/29/20 at 2032 albumin human 25 % IV SOLN 12.5 g 12.5 g, Intravenous, As Needed, Hypotension During Dialysis, Starting on Mon05/11/20 at 0000, For 4 doses, Maintain SBP Greater Than 100 During Dialysis. May repeat x 3 doses (4 doses total), Indications: Hemodialysis Procedure albumin human 25 % IV SOLN 12.5 g 12.5 g, Intravenous, As Needed, Hypotension During Dialysis, Starting on Mon05/13/20 at 0434, For 4 doses, Maintain SBP Greater Than 100 during Dialysis. May repeat x 3 doses (4 doses total), Indications: Hemodialysis Procedure bisacodyl (DULCOLAX) EC tablet 10 mg 10 mg, Oral, Daily PRN, Constipation, Starting on Mon05/12/20 at 1639, Swallow whole. Do not crush, split, or chew tablet. calcium carbonate EX (TUMS EX) chewable tablet 750 mg 750 mg, Oral, 2 Times Daily PRN, Heartburn, Starting on Mon04/28/20 at 1130, Take with food dextrose (D50W) 25 g/ 50mL Intravenous Solution 25 g 25 g, Intravenous, Every 15 Minutes PRN, Low Blood Sugar, Blood Sugar Less Than 70, Starting on Mon04/28/20 at 1206, Blood sugar less than 70; patient has IV access - Unresponsive, NPO or Unable To Safely Swallow dextrose (GLUTOSE) oral gel 15 g 15 g, Oral, Every 15 Minutes PRN, Low Blood Sugar, Blood sugar less than 70, Starting on Mon04/28/20 at 1206, BS<70, Patient Alert, Is not NPO, Can safely swallow. glucagon (human recombinant) (GLUCAGEN DIAGNOSTIC) injection 1 mg 1 mg, Subcutaneous, Every 15 Minutes PRN, Low Blood Sugar, Blood Glucose Less Than 70, Starting on Mon04/28/20 at 1206, Blood Glucose Less Than 70 - Patient Without IV Access - Unresponsive, NPO or Unable To Safely Swallow HYDROcodone-acetaminophe n (NORCO) 5-325 MG per tablet 1 tablet 1 tablet, Oral, Every 6 Hours PRN, Moderate Pain, Starting on Mon05/11/20 at 0952, For 7 days, [MICHELE] Do not exceed 4 grams of acetaminophen in a 24 hr period. If given for pain, use the following pain scale: Mild Pain = Pain Score of 1-3, CPOT 1-2 Moderate Pain = Pain Score of 4-6, CPOT 3-4 Severe Pain = Pain Score of 7-10, CPOT 5-8 2358 (Given - Provider: Aydin Keller, RN) 0952 (Given - Provider: Karli Carroll RN)2127 (Given - Provider: Aydin Keller, RN) 1128 (Given - Provider: Sylvain Cadet, JANA) labetalol (NORMODYNE,TRANDATE) injection 10 mg 10 mg, Intravenous, Every 8 Hours PRN, High Blood Pressure, Starting on Mon05/05/20 at 1617, As needed for SBP greater than 180 with HR over 70. Give by slow IV Push each 20mg (or less) over 2 minutes naloxone (NARCAN) injection 0.4 mg(Linked Group 2) 0.4 mg, Intravenous, Every 5 Minutes PRN, Respiratory Depression, Starting on Mon04/29/20 at 2032, If respiratory rate is less than 8 breaths/minute or patient is difficult to arouse stop any narcotics and contact physician. Administer slow IV push. Repeat as ordered until patient's respiratory rate is greater than 12 breaths/minute. ondansetron (ZOFRAN) injection 4 mg 4 mg, Intravenous, Every 8 Hours PRN, Nausea, Vomiting, Starting on Mon04/28/20 at 1634 Pharmacy to dose vancomycin Continuous PRN, Starting on Mon05/13/20 at 0938, Until Mon05/13/20 at 1803, Consult, Antimicrobial Indication: Sepsis, Indications: Bone and/or Joint Infection, Sepsis sodium chloride 0.9 % flush 10 mL 10 mL, Intravenous, As Needed, Line Care, Starting on Mon04/29/20 at 2032 sodium chloride 0.9 % infusion 9 mL/hr, Intravenous, Continuous PRN, Start Prior to Surgery, Starting on Mon04/29/20 at 1508 terazosin (HYTRIN) capsule 5 mg 5 mg, Oral, Nightly PRN, SBP greater than 160, Starting on Mon04/29/20 at 1429 Linked Groups Order Group 1: acetaminophen (TYLENOL) tablet 650 mgJump to med 650 mg, Oral, Every 4 Hours PRN, Mild Pain, Starting on Mon04/28/20 at 1130, Do not exceed 4 grams of acetaminophen in a 24 hr period. If given for pain, use the following pain scale: Mild Pain = Pain Score of 1-3, CPOT 1-2 Moderate Pain = Pain Score of 4-6, CPOT 3-4 Severe Pain = Pain Score of 7-10, CPOT 5-8 Or acetaminophen (TYLENOL) 160 MG/5ML solution 650 mgJump to med 650 mg, Oral, Every 4 Hours PRN, Mild Pain, Starting on Mon04/28/20 at 1130, Do not exceed 4 grams of acetaminophen in a 24 hr period. If given for pain, use the following pain scale: Mild Pain = Pain Score of 1-3, CPOT 1-2 Moderate Pain = Pain Score of 4-6, CPOT 3-4 Severe Pain = Pain Score of 7-10, CPOT 5-8 Or acetaminophen (TYLENOL) suppository 650 mgJump to med 650 mg, Rectal, Every 4 Hours PRN, Mild Pain, Starting on Mon04/28/20 at 1130, Do not exceed 4 grams of acetaminophen in a 24 hr period. If given for pain, use the following pain scale: Mild Pain = Pain Score of 1-3, CPOT 1-2 Moderate Pain = Pain Score of 4-6, CPOT 3-4 Severe Pain = Pain Score of 7-10, CPOT 5-8 Group 2: HYDROmorphone (DILAUDID) injection 0.5 mg (CANCELED) 0.5 mg, Intravenous, Every 2 Hours PRN, Severe Pain, Starting on Mon04/29/20 at 2031, For 7 days, If given for pain, use the following pain scale: Mild Pain = Pain Score of 1-3, CPOT 1-2 Moderate Pain = Pain Score of 4-6, CPOT 3-4 Severe Pain = Pain Score of 7-10, CPOT 5-8 And naloxone (NARCAN) injection 0.4 mgJump to med 0.4 mg, Intravenous, Every 5 Minutes PRN, Respiratory Depression, Starting on Mon04/29/20 at 2031, If respiratory rate is less than 8 breaths/minute or patient is difficult to arouse stop any narcotics and contact physician. Administer slow IV push. Repeat as ordered until patient's respiratory rate is greater than 12 breaths/minute. documented in this encounter Additional Health Concerns Infection Onset Date Last Indicated Resolved Time COVID Screen (preop/placement) 04/28/2020 04/28/2020 04/28/2020 4:44 PM EDT documented as of this encounter Care Teams Project Builder Relationship Specialty Start Date End Date Edgar Fournier MD [address] [place] [address] PCP - General Family Medicine 04/27/20 documented as of this encounter
--- OUTSIDE RECORDS SUMMARY | 2024-07-12 12:17 | XMS_ITS | Encounter Summary ---
Author Organization [facility] Address [address] [place] [address] Care Team Providers Care Security Technician Name Role Phone Edgar Fournier MD Primary Care Provider [phone] Reason for Visit * Auth/Cert Specialty Diagnoses / Procedures Referred By Declan hines Referred To Contact Diagnoses Acute right-sided low back pain with right-sided sciatica Sepsis Procedures na Referral ID Status Reason Start Date Expiration Date Visits Re quested Visits Authorized [id number] 1 1 Encounter Details Date Type Department Care Team (Late st Contact Info) Description 05/04/2020 6:50 PM EDT Anesthesia Event [facility] [address] [place] [id number] Lucia Murphy MD [address] [place] [id number] Anesthesia Record Procedure Summary Procedure Name Responsible Anesthesiologist Anesthesia Start Time Anesthesia Stop Time ESOPHAGOGASTRODUODENOSCOPY Lucia Murphy MD 04/1505/04/201921 Events Date Time Event Comment 05/04/2020 1545 1850 AN Equip Check 1850 An Start The patient was reevaluated immediately before moderate or deep sedation use and before anesthesia induction. 1849 An Start Data 1853 An Induction 1913 an stop data 1921 Handoff to RN The following has been [...] of report from the receiving PACU/ICU team 1921 An Stop Meds Name Total propofol (DIPRIVAN) injection 150 mg lidocaine 1% 50 mg sodium chloride 0.9 % infusion 100 mL * Agents Name O2 Sevoflurane * Blood No blood administrations on file. Lines, Drains, and Airways Type Details Placement Removal Hemodialysis AV Access 04/28/20 1647 by Wound Left; lower; back; Pressure inj; On the lower left back there is a linear pressure injury that was present prior to the patient's surgery on 04/29/2020.; 10/27/23; 0736 04/29/20 1744 by 10/27/23 0736 by Mandi Aparicio RN Wound 04/29/20; lower; lum bar spine; Incision; N; 10/27/23; 0735 04/29/20 0000 by Bridgett Hernandez RN 10/27/23 0735 by Mandi Aparicio RN Peripheral IV Placement Date: 05/02/20; Placement Time: 121; Change Due: 05/06/20; Catheter Size: 20 G; Orientation: Right; Location: Antecubital; Site Prep: Chlorhexidine isopropyl alcohol; Local Anes: None; Technique: Anatomical landmarks; Inserted by: nelly stevens rn; Insertion Attempts: 2; Patient Tolerance: Tolerated well; Removal Date: 05/07/20; Removal Time: 53405/02/20 1210 by Nelly Stevens RN 05/07/20 0535 by Mo Sargent RN documented in this encounter Social History Tobacco [...] OR Notes * Anesthesia Postprocedure Evaluation - Lucia Murphy MD - 05/04/2020 7:22 PM EDT Patient: Aiden Stauffer Procedure Summary Date: 05/04/20 Room / Location: [facility] Anesthesia Start: 1849 Anesthesia Stop: 1921 Procedure: ESOPHAGOGASTRODUODENOSCOPY (N/A ) Diagnosis: Surgeon: Dewey Betancourt MD Provider: Lucia Murphy MD Anesthesia Type: general ASA Status: 4 Anesthesia Type: general Vitals Vitals Value Taken Time BP 201/156 05/04/201918 Temp Pulse 105 05/04/201921 Resp SpO2 98 % 05/04/201921 Vitals shown include unvalidated device data. Post Anesthesia Care and Evaluation Patient location during evaluation: PACU Patient participation: complete - patient participated Level of consciousness: awake and alert Pain score: 0 Pain management: adequate Airway patency: patent Anesthetic complications: No anesthetic complications PONV Status: none Cardiovascular status: hemodynamically stable and acceptable Respiratory status: nonlabored ventilation, acceptable and nasal cannula Hydration status: acceptable * Anesthesia Preprocedure Evaluation - Lucia Murphy MD - 05/04/2020 3:40 PM EDT Anesthesia Evaluation Patient summary reviewed and Nursing notes reviewed no history of anesthetic complications: NPO Solid Status: > 8 hours NPO Liquid Status: > 8 hours Airway Mallampati: II TM distance: >3 FB Neck ROM: full No difficulty expected Dental - normal exam Pulmonary - negative pulmonary ROS and normal exam Cardiovascular - normal exam Exercise tolerance: poor (<4 METS) ECG reviewed Neuro/Psych- negative ROS ROS Comment: Hepatic encephalopathy GI/Hepatic/Renal/Endo (+) morbid obesity, hepatitis, liver disease (SAL; s/p liver transplant - immunosuppression), renal disease dialysis and ESRD, diabetes mellitus, Musculoskeletal (+) back pain, ROS comment: Recent epidural abscess evacuation Abdominal - normal exam Bowel sounds: normal. 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 Plan discussed with PARK MANAGER. documented in this encounter Plan of Treatment Not on file documented as of this encounter Visit Diagnoses Not on filedocumented in this encounter Administered Medications Inactive Administered Medications - up to 3 most recent administrations Medication Order MAR Action Action Date Dose Rate Site lidocaine (XYLOCAINE) 1 % injection As Needed, Starting on Mon05/04/20 at 1854 Given 05/04/2020 6:54 PM EDT 50 mg Propofol (DIPRIVAN) injection Intravenous, As Needed, Starting on Mon05/04/20 at 1854 Given 05/04/2020 7:03 PM EDT 50 mg Given 05/04/2020 6:59 PM EDT 50 mg Given 05/04/2020 6:54 PM EDT 50 mg sodium chloride 0.9 % infusion Intravenous, Continuous PRN, Starting on Mon05/04/20 at 1850 New Bag 05/04/2020 6:50 PM EDT documented in this encounter Care Teams Security Technician Relationship Specialty Start Date End Date Edgar Fournier MD [address] [place] [address] PCP - General Family Medicine 04/27/20 documented as of this encounter
--- OUTSIDE RECORDS SUMMARY | 2024-07-12 12:18 | XMS_ITS | Encounter Summary ---
Author Organization [facility] Address [address] [place] [address] Care Team Providers Care Front End Manager Name Role Phone Edgar Fournier MD Primary Care Provider [phone] Reason for Visit * Auth/Cert Specialty Diagnoses / Procedures Referred By Declan t Referred To Contact Diagnoses Acute right-sided low back pain with right-sided sciatica Sepsis Procedures na Referral ID Status Reason Start Date Expiration Date Visits Re quested Visits Authorized [id number] 1 1 Encounter Details Date Type Department Care Team (Late st Contact Info) Description 04/29/2020 5:28 PM EDT Anesthesia Event [facility] OR [address] [place] [address] Wilmer Rock MD [address] [place] [address] Santy Truong MD [address] [place] [address] Anesthesia Record Procedure Summary Procedure Name Responsible Anesthesiologist Anesthesia Start Time Anesthesia Stop Time LUMBAR LAMINECTOMY DISCECTOMY DECOMPRESSION POSTERIOR L4-5 (Spine Lumbar) Wilmer Rock MD 04/29/20 1728 04/29/20 1924 Events Date Time Event Comment 04/29/2020 1725 AN Equip Check 1728 An Start Data 1728 An Start The patient was reevaluated immediately before moderate or deep sedation use and before anesthesia induction. 1732 An Induction 1735 An Intubation 1918 An Extubation 191 an stop data 1923 Handoff to RN The following has been [...] of report from the receiving PACU/ICU team 1923 An Stop Meds Name Total lidocaine PF (XYLOCAINE) local injection 1% 50 mg propofol (DIPRIVAN) injection 150 mg atracurium injection 50 mg/5 mL 50 mg ondansetron 2 mg/mL 4 mg fentaNYL citrate (PF) 100 MCG/2ML 100 mc g vancomycin (VANCOCIN) in iso-osmotic dex trose IVPB 1 g (premix) 200 mL 1 g sodium chloride 0.9 % infusion 0 mL * Agents Name O2 Desflurane * Blood No blood administrations on file. Lines, Drains, and Airways Type Details Placement Removal Hemodialysis AV Access 04/28/20 1647 by Wound Left; lower; back; Pressure inj; On the lower left back there is a linear pressure injury that was present prior to the patient's surgery on 04/29/2020.; 10/27/23; 0736 04/29/20 1744 by 10/27/23 0736 by Mandi Aparicio RN Wound 04/29/20; lower; lumbar spine; Incision; N; 10/27/23; 0735 04/29/20 0000 by Bridgett Hernandez RN 10/27/23 0735 by Mandi Aparicio RN Closed/Suction Drain 04/29/20; (placed during surgery); Left, Lateral; Back; Bulb; Per order 04/29/20 0000 by Laurence Trujillo RN 05/01/20 1500 by Eneida Brody RN Peripheral IV Placement Date: 04/29/20; Placement Time: 1604; Catheter Size: 20 G; Orientation: Right, Proximal; Location: Arm; Site Prep: Chlorhexidine; Local Anes: Injectable; Technique: Anatomical landmarks; Inserted by: Tamy Dalal RN; Insertion Attempts: 1; Patient Tolerance: Tolerated well; Removal Date: 05/02/20; Removal Time: 1140 04/29/20 1604 by Alissa Wood RN 05/02/20 1140 by Eneida Brody RN documented in this encounter Social History [...] OR Notes * Anesthesia Postprocedure Evaluation - Wilmer Rock MD - 04/29/2020 7:24 PM EDT Patient: Aiden Stauffer Procedure Summary Date: 04/29/20 Room / Location: [facility] [address] [place] [address] [facility] Anesthesia Start: 1727 Anesthesia Stop: Procedure: LUMBAR LAMINECTOMY DISCECTOMY DECOMPRESSION POSTERIOR 1-2 LEVELS (N/A Spine Lumbar) Diagnosis: Surgeon: Yinka Garnica MD Provider: Wilmer Rock MD Anesthesia Type: general ASA Status: 4 Anesthesia Type: general Vitals Vitals Value Taken Time BP Temp Pulse Resp SpO2 90 % 04/29/203 Vitals shown include unvalidated device data. Post [...] status: acceptable * Anesthesia Preprocedure Evaluation - Santy Truong MD - 04/29/2020 3:46 PM EDT Anesthesia Evaluation Patient summary reviewed and Nursing notes reviewed Airway Mallampati: II TM distance: >3 FB Neck ROM: full No difficulty expected Dental - normal exam Pulmonary - negative pulmonary ROS and normal exam Cardiovascular - negative cardio ROS and normal exam Neuro/Psych- negative ROS GI/Hepatic/Renal/Endo (+) morbid obesity, hepatitis, liver disease (SAL; s/p liver transplant - immunosuppression), renal disease dialysis and ESRD, diabetes mellitus, Musculoskeletal Abdominal - normal exam Bowel sounds: normal. 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 Plan discussed with SUPERINTENDENT PRESSURE. documented in this encounter Plan of Treatment Not on file documented as of this encounter Visit Diagnoses Not on filedocumented in this encounter Administered Medications Inactive Administered Medications - up to 3 most recent administrations Medication Order MAR Action Action Date Dose Rate Site atracurium injection Intravenous, As Needed, Starting on Mon04/29/20 at 1732 Given 04/29/2020 5:32 PM EDT 50 mg fentaNYL citrate (PF) (SUBLIMAZE) injection As Needed, Starting on Mon04/29/20 at 1732 Given 04/29/2020 5:32 PM EDT 100 mcg lidocaine PF 1% (XYLOCAINE) injection As Needed, Starting on Mon04/29/20 at 1732 Given 04/29/2020 5:32 PM EDT 50 mg ondansetron (ZOFRAN) injection Intravenous, As Needed, Starting on Mon04/29/20 at 1909 Given 04/29/2020 7:09 PM EDT 4 mg Propofol (DIPRIVAN) injection Intravenous, As Needed, Starting on Mon04/29/20 at 1732 Given 04/29/2020 5:32 PM EDT 150 mg sodium chloride 0.9 % infusion 50 mL/hr, Intravenous, Continuous, Starting on Mon04/29/20 at 1030 Rate/Dose Change 04/29/2020 7:23 PM EDT 600 mL/hr New Bag 04/29/2020 5:04 PM EDT 100 mL/hr Rate/Dose Change 04/29/2020 3:05 PM EDT 50 mL/hr 50 mL/h r vancomycin (VANCOCIN) in iso-osmotic dextrose IVPB 1 g (premix) 200 mL 1,000 mg, Intravenous, Administer over 60 Minutes, Once, On Mon04/29/20 at 1600, For 1 dose, Indications: Sepsis, spine discitis osteomyelitisIndications:Sepsis,spine discitis osteomyelitis Given 04/29/2020 5:50 PM EDT 1 g documented in this encounter Care Teams Front End Manager Relationship Specialty Start Date End Date Edgar Fournier MD [address] [place] [address] [place] [address] PCP - General Family Medicine 04/27/20 documented as of this encounter
--- OUTSIDE RECORDS SUMMARY | 2024-07-12 12:18 | XMS_ITS | Encounter Summary ---
Author Organization [facility] Address [address] [place] [address] Care Team Providers Care Psychiatric Assistant Name Role Phone Edgar Fournier MD Primary Care Provider [phone] Reason for Visit * Reason Comments Back Pain Multiple complaints * Auth/Cert Specialty Diagnoses / Procedures Referred By Contac t Referred To Contact Diagnoses Acute right-sided low back pain with right-sided sciatica Sepsis Procedures na Referral ID Status Reason Start Date Expiration Date Visits Re quested Visits Authorized [id number] 1 1 Encounter Details Date Type Department Care Team (Late st Contact Info) Description 05/04/2020 5:41 PM EDT - 05/04/2020 6:19 PM EDT Surgery [facility] [address] [place] [address] Dewey Betancourt MD [address] [place] [address] ESOPHAGOGASTRODUODENOSCOPY [17525 (CPT??)] Social History Tobacco Use Types Packs/Day Years [...] Sign Reading Time Taken Comments Blood Pressure 160/120 05/04/2020 3:26 PM EDT Pulse 120 05/04/2020 3:26 PM EDT Temperature 37.1 ??C (98.8 ??F) 05/04/2020 3:26 PM ED T Respiratory Rate 18 05/04/2020 3:26 PM EDT Oxygen Saturation 96% 05/04/2020 3:26 PM EDT Inhaled Oxygen Concentration - - Weight 122 kg (268 lb) 04/29/2020 3:51 PM EDT Height 170.2 cm (5' 7 ) 04/29/2020 3:51 PM EDT Body Mass Index 41.97 04/29/2020 3:51 PM EDT documented in this encounter Discharge Summaries * Ginger Murphy RN - 05/13/2020 2:12 PM EDT Images from the original note were not included. Bry Rollinsny Ivelisse (45 y.o. Male) Date of Social Security Number Address Home Phone MRN [id number] [facility] [id number] Voodoo Marital Status None Admission Date Admission Type Admitting Provider Attending Provider Department, Room/Bed 04/28/20 Emergency Gabbi Paul II, Gabbi Guallpa II, [facility] 3H, S386/1 Discharge Date Discharge Disposition Discharge Destination Home or Self Care Attending Provider: Gabbi Paul II, DO Allergies: No Known Allergies Isolation: None Infection: None Code Status: CPR Ht: 170.2 cm (67 ) Wt: 122 kg (268 lb) Admission Cmt: None Principal Problem: None Active Insurance as of 04/28/2020 Primary Coverage Payor Plan Insurance Group Employer/Plan Group [place] Address Payor Plan Phone Number Payor Plan Fax Number Effective Dates [address] 04/27/2020 - None Entered [facility] [address] Subscriber Name Subscriber Date Member ID LEONCIO ROLLINS 1975 [id number] Emergency Contacts Civil Lawyer (Rel.) Home Phone Work Phone Mobile Phone KYM ROLLINS (Spouse) [phone] -- [phone] Emergency Contact Information Name Relation Home Work Mobile KYM ROLLINS Spouse [phone] History & Physical Keara Berg DO at 04/28/20 1152 [facility] Medicine Services HISTORY AND PHYSICAL Patient [...] of 89 over the weekend. States at [place] they gave him a prescription for [...] Units Date/Time MRI Lumbar Spine Without Contrast [[id number]] Collected: 04/28/20 1058 Updated: 04/28/20 1111 Narrative: [...] roots bilaterally. CT Abdomen Pelvis Without Contrast [[id number]] Collected: 09/15/20 0641 Updated: 04/28/20643 Narrative: INDICATION: Post liver transplant [...] AM Workstation Name: [facility] CT Chest Without Contrast [[id number]] Collected: 04/28/20633 Updated: 09/15/20 0636 Narrative: INDICATION: Liver transplant with generalized abdominal [...] AM Workstation Name: [facility] CT Lumbar Spine Without Contrast [[id number]] Collected: 04/28/20627 Updated: 04/28/20629 Narrative: INDICATION: Pain [...] AM Workstation Name: [facility] XR Chest 1 View [[id number]] Collected: 04/28/20 0158 Updated: 04/28/20199 Narrative: CR Chest 1 Vw INDICATION: Weakness and dizziness on arrival COMPARISON: None available. FINDINGS: Single portable AP view(s) of the chest. The heart and mediastinal contours are normal. The lungs are clear. No pneumothorax or pleural effusion. Impression: No acute cardiopulmonary findings. Signer Name: Gabino Herr MD Signed: 04/28/2020 1:58 AM Workstation Name: RSLFALK[facility]- [facility] Assessment/Plan Assessment & Plan Active Hospital Problems [...] Gabbi Paul II, DO at 05/13/20 1339 [facility] Medicine Services DISCHARGE SUMMARY Patient Name: Leoncio [...] HD. I have d/w Dr. Cheney, his driver supervisor, who accepts plan. Patient will present to HD center [facility] for vanco following his HD treatments. [...] Date/Time Wound Culture - Wound, Spine, Lumbar [[id number]] (Abnormal) (Susceptibility) Collected: 04/29/20 1843 Lab Status: [...] vitro. Fungus Culture - Tissue, Back, Lower [[id number]] Collected: 04/29/201914 Lab Status: Preliminary result Specimen: Tissue from Back, Lower Updated: 05/06/201999 Fungus Culture No fungus isolated at 1 week AFB Culture - Tissue, Back, Lower [[id number]] Collected: 04/29/201914 Lab Status: Preliminary result Specimen: Tissue from Back, Lower Updated: 05/06/201999 AFB Culture No AFB isolated at 1 week AFB Stain No acid fast bacilli seen on concentrated smear Anaerobic Culture - Tissue, Back, Lower [[id number]] Collected: 04/29/20 1915 Lab Status: Final result Specimen: Tissue from Back, Lower Updated: 05/04/20 0858 Anaerobic Culture No anaerobes isolated at 5 days Anaerobic Culture - Wound, Spine, Lumbar [[id number]] Collected: 04/29/20 1843 Lab Status: Final result Specimen: Wound from Spine, Lumbar Updated: 05/04/20 0858 Anaerobic Culture No anaerobes isolated at 5 days Blood Culture - Blood, Arm, Right [[id number]] Collected: 04/28/20 0650 Lab Status: Final result Specimen: Blood from Arm, Right Updated: 05/03/20 0800 Blood Culture No growth at 5 days Blood Culture - Blood, Wrist, Right [[id number]] Collected: 04/28/20 0701 Lab Status: Final result Specimen: Blood from Wrist, Right Updated: 05/03/20 0800 Blood Culture No growth at 5 days Tissue / Bone Culture - Tissue, Back, Lower [[id number]] Collected: 04/29/20 191 Lab Status: Final result Specimen: Tissue from Back, Lower Updated: 05/02/20 0857 Tissue Culture No growth at 3 days Gram Stain Rare (1+) WBCs seen No organisms seen MRSA Screen, PCR (Inpatient) - Swab, Nares [[id number]] (Normal) Collected: 04/29/20 0150 Lab Status: Final result Specimen: Swab from Nares Updated: 04/29/20 0912 MRSA PCR Negative Narrative: MRSA Negative COVID PRE-OP / PRE-PROCEDURE SCREENING ORDER (NO ISOLATION) - Swab, Nasopharynx [[id number]] (Normal) Collected: 04/28/20 1505 Lab Status: Final result Specimen: Swab from Nasopharynx Updated: 04/28/20 1644 Narrative: The following orders were created for panel order COVID PRE-OP / PRE-PROCEDURE SCREENING ORDER (NO ISOLATION) - Swab, Nasopharynx. Procedure Abnormality Status --------- ------ Respiratory Panel PCR w/...[[id number]] Normal Final result Please view results for these tests on the individual orders. 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, CUPOLA CHARGER Swab in UTM/VTM, 3-4 HR TAT - Swab, Nasopharynx [[id number]] (Normal) Collected: 04/28/20 1505 Lab Status: Final [...] Not Detected Narrative: Fact sheet for providers: https://docs.Racktivity/wp-content/uploads/OIP5656-1964-TA8.1-EUA-Provi ksf-Kfep-Ajfnu-3.pdf Fact sheet for patients: https://docs.Racktivity/wp-content/uploads/ARL1949-9119-WH1.0-NUM-Pzzdwh b-Cckf-Wpzuo-1.pdf Imaging Results (All) Procedure Component Value Units Date/Time FL C Arm During Surgery [[id number]] Collected: 04/29/202011 Updated: 04/30/20 1900 Narrative: EXAMINATION: [...] Elpidio Dyer. MRI Lumbar Spine Without Contrast [[id number]] Collected: 04/28/20 1058 Updated: 04/29/20922 Narrative: EXAMINATION: [...] Carlson MD. CT Abdomen Pelvis Without Contrast [[id number]] Collected: 04/28/20640 Updated: 04/28/20643 Narrative: INDICATION: Post [...] MD Signed: 04/28/2020 6:41 AM Workstation Name: [facility] CT Chest Without Contrast [[id number]] Collected: 04/28/2034 Updated: 04/28/20635 Narrative: INDICATION: Liver transplant with [...] AM Workstation Name: [facility] CT Lumbar Spine Without Contrast [[id number]] Collected: 04/28/20627 Updated: 04/28/20629 Narrative: INDICATION: Pain [...] AM Workstation Name: [facility] XR Chest 1 View [[id number]] Collected: 04/28/20 0158 Updated: 04/28/20199 Narrative: CR Chest 1 Vw INDICATION: Weakness and dizziness on arrival COMPARISON: None available. FINDINGS: Single portable AP view(s) of the chest. The heart and mediastinal contours are normal. The lungs are clear. No pneumothorax or pleural effusion. Impression: No acute cardiopulmonary findings. Signer Name: Gabino Herr MD Signed: 04/28/2020 1:58 AM Workstation Name: [facility] Plan for Follow-up of Pending Labs/Results: [facility] [...] 8 Hours PRN vitamin D 1.25 MG (60548 UT) capsule capsule Commonly known as: ERGOCALCIFEROL [...] Up: 1 Month if pending use the esig process Time Spent on Discharge: I spent 45 minutes on this discharge activity which included: jwex-vv-wefaoifbhifpk with the patient, reviewing the data in the system, coordination of the care with the nursing staff as well as consultants, documentation, and entering orders. 1346 * Gabbi Paul II, DO - 05/13/2020 1:39 PM EDT Images from the original note were not included. [facility] Medicine Services DISCHARGE SUMMARY Patient Name: Leoncio [...] HD. I have d/w Dr. Cheney, his driver supervisor, who accepts plan. Patient will present to HD center [facility] for vanco following his HD treatments. [...] F/U Dr Garnica in 2-4 weeks F/U [facility] - Michael via telehealth in 1 week [...] Date/Time Wound Culture - Wound, Spine, Lumbar [[id number]] (Abnormal) (Susceptibility) Collected: 04/29/201842 Lab Status: Edited [...] vitro. Fungus Culture - Tissue, Back, Lower [[id number]] Collected: 04/29/201914 Lab Status: Preliminary result Specimen: Tissue from Back, Lower Updated: 05/06/201999 Fungus Culture No fungus isolated at 1 week AFB Culture - Tissue, Back, Lower [[id number]] Collected: 04/29/201914 Lab Status: Preliminary result Specimen: Tissue from Back, Lower Updated: 05/06/201999 AFB Culture No AFB isolated at 1 week AFB Stain No acid fast bacilli seen on concentrated smear Anaerobic Culture - Tissue, Back, Lower [[id number]] Collected: 04/29/201914 Lab Status: Final result Specimen: Tissue from Back, Lower Updated: 05/04/20 0858 Anaerobic Culture No anaerobes isolated at 5 days Anaerobic Culture - Wound, Spine, Lumbar [[id number]] Collected: 04/29/201842 Lab Status: Final result Specimen: Wound from Spine, Lumbar Updated: 05/04/20 0858 Anaerobic Culture No anaerobes isolated at 5 days Blood Culture - Blood, Arm, Right [[id number]] Collected: 04/28/20 0650 Lab Status: Final result Specimen: Blood from Arm, Right Updated: 05/03/20 0800 Blood Culture No growth at 5 days Blood Culture - Blood, Wrist, Right [[id number]] Collected: 04/28/20 0701 Lab Status: Final result Specimen: Blood from Wrist, Right Updated: 05/03/20 0800 Blood Culture No growth at 5 days Tissue / Bone Culture - Tissue, Back, Lower [[id number]] Collected: 04/29/20 1915 Lab Status: Final result Specimen: Tissue from Back, Lower Updated: 05/02/20 0857 Tissue Culture No growth at 3 days Gram Stain Rare (1+) WBCs seen No organisms seen MRSA Screen, PCR (Inpatient) - Swab, Nares [[id number]] (Normal) Collected: 04/29/20 0150 Lab Status: Final result Specimen: Swab from Nares Updated: 04/29/20 0912 MRSA PCR Negative Narrative: MRSA Negative COVID PRE-OP / PRE-PROCEDURE SCREENING ORDER (NO ISOLATION) - Swab, Nasopharynx [[id number]] (Normal) Collected: 04/28/20 1505 Lab Status: Final result Specimen: Swab from Nasopharynx Updated: 04/28/20 1644 Narrative: The following orders were created for panel order COVID PRE-OP / PRE-PROCEDURE SCREENING ORDER (NO ISOLATION) - Swab, Nasopharynx. Procedure Abnormality Status --------- ------ Respiratory Panel PCR w/...[[id number]] Normal Final result Please view results for these tests on the individual orders. 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, CUPOLA CHARGER Swab in UTM/VTM, 3-4 HR TAT - Swab, Nasopharynx [[id number]] (Normal) Collected: 04/28/20 1505 Lab Status: Final [...] Not Detected Narrative: Fact sheet for providers: https://docs.Racktivity/wp-content/uploads/KRI8260-7346-GC5.1-EUA-Provi nym-Lcvh-Aejhs-3.pdf Fact sheet for patients: https://docs.Racktivity/wp-content/uploads/FSK9647-7582-MP4.4-BDG-Yytoxq f-Zizf-Hsqju-1.pdf Imaging Results (All) Procedure Component Value Units Date/Time FL C Arm During Surgery [[id number]] Collected: 04/29/202011 Updated: 04/30/20 190 Narrative: EXAMINATION: [...] on 04/30/2020 6:[address] Elpidio Deyr. MRI Lumbar Spine Without Contrast [[id number]] Collected: 04/28/20 1058 Updated: 04/29/20 09 Narrative: [...] Carlson MD. CT Abdomen Pelvis Without Contrast [[id number]] Collected: 04/28/20640 Updated: 04/28/20643 Narrative: INDICATION: Post [...] AM Workstation Name: [facility] CT Chest Without Contrast [[id number]] Collected: 04/28/20633 Updated: 04/28/20635 Narrative: INDICATION: Liver [...] AM Workstation Name: [facility] CT Lumbar Spine Without Contrast [[id number]] Collected: 04/28/20627 Updated: 04/28/20629 Narrative: INDICATION: Pain [...] MD Signed: 04/28/2020 6:28 AM Workstation Name: [facility] XR Chest 1 View [[id number]] Collected: 04/28/20 0158 Updated: 04/28/20199 Narrative: CR Chest 1 Vw INDICATION: Weakness and dizziness on arrival COMPARISON: None available. FINDINGS: Single portable AP view(s) of the chest. The heart and mediastinal contours are normal. The lungs are clear. No pneumothorax or pleural effusion. Impression: No acute cardiopulmonary findings. Signer Name: Gabino Herr MD Signed: 04/28/2020 1:58 AM Workstation Name: [facility] Plan for [facility]ending [facility] Order Current Status AFB Culture [...] 8 Hours PRN vitamin D 1.25 MG (34936 UT) capsule capsule Commonly known as: ERGOCALCIFEROL [...] Up: 1 Month if pending use the [facility] process Time Spent on Discharge: I spent 45 minutes on this discharge activity which included: xecy-ky-vgvltagzknobk with the patient, reviewing the data in the system, coordination of the care with the nursing staff as well as consultants, documentation, and entering orders. documented in this encounter Discharge Instructions * Discharge Instr - Diet* Roxi Cook, RN - 05/13/2020 1:54 PM EDT Consistent Carbohydrate diet. * Attachments The following attachments cannot be sent through Care Everywhere. * Laminectomy Care After (Iranian) * Dialysis (Iranian) * Acetaminophen; Hydrocodone tablets or capsules (Iranian) * Preventing Constipation After Surgery (Iranian) * Fall Prevention in the Home Adult Qgkg-zl-Tewi (Iranian) * Understanding Your Risk for Falls (Iranian) documented in this encounter Medications at Time [...] 05/13/2020 3 vitamin D (ERGOCALCIFEROL) 1.25 MG (55946 UT) capsule capsule Take 1 capsule by mouth 2 (Two) Times a Week. Takes on Monday and 4 documented as of this encounter Progress Notes * Cayetano Rodriguez MD - 05/13/2020 4:03 PM EDT [facility] Progress Note Date of Admission: 04/28/2020 Antibiotics: [...] He was seen at several ERs including [facility] given Keflex with some improvement. Now admitted [...] agree with close follow-up with transplant team [facility] at high risk for need for readmission PLAN: Continue vancomycin dosed by pharmacy on hemodialysis x5 more weeks Continue doxycycline Monitor CBCcmp esr and CRP weekly Agree with close follow-up with [facility] transplant team at high risk for need for readmission with complexity of case with ongoing immune suppression and lumbar spine discitis and osteomyelitis difficulty with ambulation Cayetano Rodriguez MD 05/11/2020 * Ginger Murphy RN - 05/13/2020 2:11 PM EDT Continued Stay Note [facility] Patient Name: Leoncio Rollins Today's Date: 05/13/2020 Admit Date: 04/28/2020 Discharge Plan Row Name 05/13/20 1409 Plan Plan Home w/ HH Provided Post Acute Provider List? Yes Post Acute Provider List Home Health Patient/Family in Agreement with Plan yes Plan Comments Per patient request HH has been arranged w/ [facility] for PT/OT. Referral made to Domenic and she is aware of patient's pending dc today. DC summary has been faxed to [facility]. No other needs noted. Plan is home w/ HH and outpatient HD at [facility]. to transport. CM following. Final Discharge Disposition Code 06 - home with home health care Discharge Codes No documentation. Expected Discharge Date and Time Expected Discharge Date Expected Discharge Time May 13, 2020 Ginger Murphy RN * Gabbi Paul II, DO - 05/13/2020 12:44 PM EDT Images from the original note were not included. [facility] Medicine Services PROGRESS NOTE Patient Name: Leoncio [...] Date/Time Wound Culture - Wound, Spine, Lumbar [[id number]] (Abnormal) (Susceptibility) Collected: 04/29/201842 Lab Status: Edited [...] vitro. Fungus Culture - Tissue, Back, Lower [[id number]] Collected: 04/29/201914 Lab Status: Preliminary result Specimen: Tissue from Back, Lower Updated: 05/06/201999 Fungus Culture No fungus isolated at 1 week AFB Culture - Tissue, Back, Lower [[id number]] Collected: 04/29/201914 Lab Status: Preliminary result Specimen: Tissue from Back, Lower Updated: 05/06/201999 AFB Culture No AFB isolated at 1 week AFB Stain No acid fast bacilli seen on concentrated smear Anaerobic Culture - Tissue, Back, Lower [[id number]] Collected: 04/29/201914 Lab Status: Final result Specimen: Tissue from Back, Lower Updated: 05/04/20 0858 Anaerobic Culture No anaerobes isolated at 5 days Anaerobic Culture - Wound, Spine, Lumbar [[id number]] Collected: 04/29/201842 Lab Status: Final result Specimen: Wound from Spine, Lumbar Updated: 05/04/20 0858 Anaerobic Culture No anaerobes isolated at 5 days Blood Culture - Blood, Arm, Right [[id number]] Collected: 04/28/20 0650 Lab Status: Final result Specimen: Blood from Arm, Right Updated: 05/03/20 0800 Blood Culture No growth at 5 days Blood Culture - Blood, Wrist, Right [[id number]] Collected: 04/28/20 0701 Lab Status: Final result Specimen: Blood from Wrist, Right Updated: 05/03/20 0800 Blood Culture No growth at 5 days Tissue / Bone Culture - Tissue, Back, Lower [[id number]] Collected: 04/29/20 1915 Lab Status: Final result Specimen: Tissue from Back, Lower Updated: 05/02/20 0857 Tissue Culture No growth at 3 days Gram Stain Rare (1+) WBCs seen No organisms seen MRSA Screen, PCR (Inpatient) - Swab, Nares [[id number]] (Normal) Collected: 04/29/20 0150 Lab Status: Final result Specimen: Swab from Nares Updated: 04/29/20 0912 MRSA PCR Negative Narrative: MRSA Negative COVID PRE-OP / PRE-PROCEDURE SCREENING ORDER (NO ISOLATION) - Swab, Nasopharynx [[id number]] (Normal) Collected: 04/28/20 1505 Lab Status: Final result Specimen: Swab from Nasopharynx Updated: 04/28/20 1644 Narrative: The following orders were created for panel order COVID PRE-OP / PRE-PROCEDURE SCREENING ORDER (NO ISOLATION) - Swab, Nasopharynx. Procedure Abnormality Status --------- ------ Respiratory Panel PCR w/...[[id number]] Normal Final result Please view results for these tests on the individual orders. 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, CUPOLA CHARGER Swab in UTM/VTM, 3-4 HR TAT - Swab, Nasopharynx [[id number]] (Normal) Collected: 04/28/20 1505 Lab Status: Final [...] Not Detected Narrative: Fact sheet for providers: https://docs.Racktivity/wp-content/uploads/HMW2201-8783-PH7.1-EUA-Provi arb-Gxis-Qjipc-3.pdf Fact sheet for patients: https://docs.Racktivity/wp-content/uploads/FAP0843-1602-EP8.5-LWL-Vpxsps t-Ecjj-Vgiii-1.pdf Imaging Results (Last 24 Hours) No results [...] to Arrest): Full if pending use the [facility] process * Vivek Ramos RPH - [...] 1044 Pharmacy to dose vancomycin Ordering Provider: Zoë, Karli L, RPH Does not apply Continuous PRN 05/05/20 [...] Renal Replacement: HD 5 days a week PRECIPITATE WASHER now on a MWF Schedule Ht - 170.2 cm (67 ) Wt - 122 kg (268 lb) Estimated Creatinine Clearance: 13.5 mL/min (A) (by C-G formula based on SCr of 8.56 mg/dL (H)). Intake & Output (last 3 days) 05/10 701 - 05/11 0705/11 - 05/12 0705/12 07 - 05/13 0705/13 07 - 05/14 0700 P.O. 120 150 360 IV Piggyback 150 [...] adjust regimen as necessary. Vivek Ramos PharmD [employer] Machine Operator 05/13/2020 09:58 EDT * Kody Wong MD [...] be corrected with HD. Kody Wong MD 05/12/20 16:04 EDT * Gabbi Paul II, - 05/12/2020 10:43 AM EDT Images from the original note were not included. [facility] Medicine Services PROGRESS NOTE Patient Name: Leoncio [...] Date/Time Wound Culture - Wound, Spine, Lumbar [[id number]] (Abnormal) (Susceptibility) Collected: 04/29/201842 Lab Status: Edited [...] vitro. Fungus Culture - Tissue, Back, Lower [[id number]] Collected: 04/29/201914 Lab Status: Preliminary result Specimen: Tissue from Back, Lower Updated: 05/06/201999 Fungus Culture No fungus isolated at 1 week AFB Culture - Tissue, Back, Lower [[id number]] Collected: 04/29/201914 Lab Status: Preliminary result Specimen: Tissue from Back, Lower Updated: 05/06/201999 AFB Culture No AFB isolated at 1 week AFB Stain No acid fast bacilli seen on concentrated smear Anaerobic Culture - Tissue, Back, Lower [[id number]] Collected: 04/29/201914 Lab Status: Final result Specimen: Tissue from Back, Lower Updated: 05/04/20 0858 Anaerobic Culture No anaerobes isolated at 5 days Anaerobic Culture - Wound, Spine, Lumbar [[id number]] Collected: 04/29/201842 Lab Status: Final result Specimen: Wound from Spine, Lumbar Updated: 05/04/20 0858 Anaerobic Culture No anaerobes isolated at 5 days Blood Culture - Blood, Arm, Right [[id number]] Collected: 04/28/20 0650 Lab Status: Final result Specimen: Blood from Arm, Right Updated: 05/03/20 0800 Blood Culture No growth at 5 days Blood Culture - Blood, Wrist, Right [[id number]] Collected: 04/28/20 0701 Lab Status: Final result Specimen: Blood from Wrist, Right Updated: 05/03/20 0800 Blood Culture No growth at 5 days Tissue / Bone Culture - Tissue, Back, Lower [[id number]] Collected: 04/29/20 1915 Lab Status: Final result Specimen: Tissue from Back, Lower Updated: 05/02/20 0857 Tissue Culture No growth at 3 days Gram Stain Rare (1+) WBCs seen No organisms seen MRSA Screen, PCR (Inpatient) - Swab, Nares [[id number]] (Normal) Collected: 04/29/20 0150 Lab Status: Final result Specimen: Swab from Nares Updated: 04/29/20 0912 MRSA PCR Negative Narrative: MRSA Negative COVID PRE-OP / PRE-PROCEDURE SCREENING ORDER (NO ISOLATION) - Swab, Nasopharynx [[id number]] (Normal) Collected: 04/28/20 1505 Lab Status: Final result Specimen: Swab from Nasopharynx Updated: 04/28/20 1644 Narrative: The following orders were created for panel order COVID PRE-OP / PRE-PROCEDURE SCREENING ORDER (NO ISOLATION) - Swab, Nasopharynx. Procedure Abnormality Status --------- ------ Respiratory Panel PCR w/...[[id number]] Normal Final result Please view results for these tests on the individual orders. 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, CUPOLA CHARGER Swab in UTM/SCM, 3-4 HR TAT - Swab, Nasopharynx [[id number]] (Normal) Collected: 04/28/20 1505 Lab Status: Final [...] Not Detected Narrative: Fact sheet for providers: https://docs.Racktivity/wp-content/uploads/OMM2656-0965-QP4.1-EUA-Provi tnh-Vfri-Drmyu-3.pdf Fact sheet for patients: https://docs.Racktivity/wp-content/uploads/KDT4485-6090-GH7.4-HIU-Puswzu x-Tcqt-Flbzc-1.pdf Imaging Results (Last 24 Hours) No results [...] to Arrest): Full if pending use the bhesig process * Ginger Murphy, JANA - 05/12/2020 [...] a wk, with abx in fusion, at [facility] in [place]. Also spoke w/ Marilee at [facility] to confirm HD days and chairtimes. Patient will have HD MWF at 1200. CM will faxed the dc summary including abx info to Marilee at [phone] when available. Per Marilee, Dr. Cheney, patient's driver supervisor, has requested for the attending MD or ID to call him regarding the anticipated IV regimen for approval. CM will provide his number to MD in am rounds. Patient states his will provided transport to and from HD. No other needs noted at this time. CM following. Final Discharge Disposition Code 01 - home or self-care Discharge Codes No documentation. Ginger Murphy, RN * Ginger Murphy, JANA - 05/11/2020 [...] of bed to assess mobility. CM d/w FINANCIAL BUSINESS ANALYST and PT will attempt to eval patient. [...] not qualify for EMS transport- either at dishcarge or to and from dialysis. WIll need private transportation. CM will f/u w/ patient. Final Discharge Disposition Code 01 - home or self-care Discharge Codes No documentation. Ginger Murphy RN * Cayetano Rodriguez MD - 05/11/2020 2:27 PM EDT [facility] Progress Note Date of Admission: 04/28/2020 Antibiotics: [...] He was seen at several ERs including [facility] given Keflex with some improvement. Now admitted [...] the order on 05/11/20 0938. Ordering Provider: Karli Camp RPH 750 mg [...] Renal Replacement: HD 5 days a week PRECIPITATE WASHER now on a MWF Schedule Ht - 170.2 cm (67 ) Wt - 122 kg (268 lb) Estimated Creatinine Clearance: 13.5 mL/min (A) (by C-G formula based on SCr of 8.56 mg/dL (H)). Intake & Output (last 3 days) 05/08 701 - 05/09 0705/09 - 05/10 0705/10 07 - 05/11 - 05/12 07 P.O. 1014 1050 120 Total Intake(mL/kg) 1014 [...] clinical status to adjust regimen as necessary. Darrian MerrittD, [facility] 05/11/2020 13:28 EDT * Kody Wong MD [...] Wong MD 05/11/20 12:50 EDT * Vera Hernandez APRN - 05/11/2020 12:37 PM EDT Images from the original note were not included. [facility] Medicine Services PROGRESS NOTE Patient Name: Leoncio [...] Date/Time Wound Culture - Wound, Spine, Lumbar [[id number]] (Abnormal) (Susceptibility) Collected: 04/29/201842 Lab Status: Edited [...] vitro. Fungus Culture - Tissue, Back, Lower [[id number]] Collected: 04/29/201914 Lab Status: Preliminary result Specimen: Tissue from Back, Lower Updated: 05/06/201999 Fungus Culture No fungus isolated at 1 week AFB Culture - Tissue, Back, Lower [[id number]] Collected: 04/29/201914 Lab Status: Preliminary result Specimen: Tissue from Back, Lower Updated: 05/06/201999 AFB Culture No AFB isolated at 1 week AFB Stain No acid fast bacilli seen on concentrated smear Anaerobic Culture - Tissue, Back, Lower [[id number]] Collected: 04/29/201914 Lab Status: Final result Specimen: Tissue from Back, Lower Updated: 05/04/20 0858 Anaerobic Culture No anaerobes isolated at 5 days Anaerobic Culture - Wound, Spine, Lumbar [[id number]] Collected: 04/29/201842 Lab Status: Final result Specimen: Wound from Spine, Lumbar Updated: 05/04/20 0858 Anaerobic Culture No anaerobes isolated at 5 days Blood Culture - Blood, Arm, Right [[id number]] Collected: 04/28/20 0650 Lab Status: Final result Specimen: Blood from Arm, Right Updated: 05/03/20 0800 Blood Culture No growth at 5 days Blood Culture - Blood, Wrist, Right [[id number]] Collected: 04/28/20 0701 Lab Status: Final result Specimen: Blood from Wrist, Right Updated: 05/03/20 0800 Blood Culture No growth at 5 days Tissue / Bone Culture - Tissue, Back, Lower [[id number]] Collected: 04/29/20 1915 Lab Status: Final result Specimen: Tissue from Back, Lower Updated: 05/02/20 0857 Tissue Culture No growth at 3 days Gram Stain Rare (1+) WBCs seen No organisms seen MRSA Screen, PCR (Inpatient) - Swab, Nares [[id number]] (Normal) Collected: 04/29/20 0150 Lab Status: Final result Specimen: Swab from Nares Updated: 04/29/20 0912 MRSA PCR Negative Narrative: MRSA Negative COVID PRE-OP / PRE-PROCEDURE SCREENING ORDER (NO ISOLATION) - Swab, Nasopharynx [[id number]] (Normal) Collected: 04/28/20 1505 Lab Status: Final result Specimen: Swab from Nasopharynx Updated: 04/28/20 1644 Narrative: The following orders were created for panel order COVID PRE-OP / PRE-PROCEDURE SCREENING ORDER (NO ISOLATION) - Swab, Nasopharynx. Procedure Abnormality Status --------- ------ Respiratory Panel PCR w/...[[id number]] Normal Final result Please view results for these tests on the individual orders. 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, CUPOLA CHARGER Swab in UTM/SCM, 3-4 HR TAT - Swab, Nasopharynx [[id number]] (Normal) Collected: 04/28/20 1505 Lab Status: Final [...] Not Detected Narrative: Fact sheet for providers: https://docs.Racktivity/wp-content/uploads/ARX9763-7109-KP3.1-EUA-Provi hcr-Vgbp-Hcasg-3.pdf Fact sheet for patients: https://docs.Rack[employer]/wp-content/uploads/LTW2432-7707-LZ0.4-LTC-Imkfuw q-Moak-Sxprg-1.pdf Imaging Results (Last 24 Hours) No results [...] from the original note were not included. [facility] Medicine Services PROGRESS NOTE Patient Name: Leoncio [...] Date/Time Wound Culture - Wound, Spine, Lumbar [[id number]] (Abnormal) (Susceptibility) Collected: 04/29/20 1843 Lab Status: [...] vitro. Fungus Culture - Tissue, Back, Lower [[id number]] Collected: 04/29/20 191 Lab Status: Preliminary result Specimen: Tissue from Back, Lower Updated: 05/06/201999 Fungus Culture No fungus isolated at 1 week AFB Culture - Tissue, Back, Lower [[id number]] Collected: 04/29/201914 Lab Status: Preliminary result Specimen: Tissue from Back, Lower Updated: 05/06/20 2000 AFB Culture No AFB isolated at 1 week AFB Stain No acid fast bacilli seen on concentrated smear Anaerobic Culture - Tissue, Back, Lower [[id number]] Collected: 04/29/201914 Lab Status: Final result Specimen: Tissue from Back, Lower Updated: 05/04/20 0858 Anaerobic Culture No anaerobes isolated at 5 days Anaerobic Culture - Wound, Spine, Lumbar [[id number]] Collected: 04/29/20 1843 Lab Status: Final result Specimen: Wound from Spine, Lumbar Updated: 05/04/20 0858 Anaerobic Culture No anaerobes isolated at 5 days Blood Culture - Blood, Arm, Right [[id number]] Collected: 04/28/20 0650 Lab Status: Final result Specimen: Blood from Arm, Right Updated: 05/03/20 0800 Blood Culture No growth at 5 days Blood Culture - Blood, Wrist, Right [[id number]] Collected: 04/28/20 0701 Lab Status: Final result Specimen: Blood from Wrist, Right Updated: 05/03/20 0800 Blood Culture No growth at 5 days Tissue / Bone Culture - Tissue, Back, Lower [[id number]] Collected: 04/29/201914 Lab Status: Final result Specimen: Tissue from Back, Lower Updated: 05/02/20 0857 Tissue Culture No growth at 3 days Gram Stain Rare (1+) WBCs seen No organisms seen MRSA Screen, PCR (Inpatient) - Swab, Nares [[id number]] (Normal) Collected: 04/29/20 0150 Lab Status: Final result Specimen: Swab from Nares Updated: 04/29/20 0912 MRSA PCR Negative Narrative: MRSA Negative COVID PRE-OP / PRE-PROCEDURE SCREENING ORDER (NO ISOLATION) - Swab, Nasopharynx [[id number]] (Normal) Collected: 04/28/20 1505 Lab Status: Final result Specimen: Swab from Nasopharynx Updated: 04/28/20 1644 Narrative: The following orders were created for panel order COVID PRE-OP / PRE-PROCEDURE SCREENING ORDER (NO ISOLATION) - Swab, Nasopharynx. Procedure Abnormality Status --------- ------ Respiratory Panel PCR w/...[[id number]] Normal Final result Please view results for these tests on the individual orders. 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, CUPOLA CHARGER Swab in UTM/VTM, 3-4 HR TAT - Swab, Nasopharynx [[id number]] (Normal) Collected: 04/28/20 1505 Lab Status: Final [...] Not Detected Narrative: Fact sheet for providers: https://docs.Racktivity/wp-content/uploads/RYZ2437-1385-IR0.1-EUA-Provi wgc-Gtzt-Uiole-3.pdf Fact sheet for patients: https://docs.Rack[employer]ivity/wp-content/uploads/LYZ7332-1457-LB2.7-YCB-Nmhyul v-Vpvh-Ialsq-1.pdf Imaging Results (Last 24 Hours) No results [...] IVPB 750 mg Ordering Provider: Germán Resendiz RPKaylyn 750 mg over 60 Minutes Intravenous Once [...] NS IVPB ([facility]) Ordering Provider: Kym Garcia, 20 mg/kg ?? 125 kg over 150 [...] Renal Replacement: HD 5 days a week PRECIPITATE WASHER now on a MWF Schedule Ht - 170.2 cm (67 ) Wt - 122 kg (268 lb) Estimated Creatinine Clearance: 15.3 mL/min (A) (by C-G formula based on SCr of 7.56 mg/dL (H)). Intake & Output (last 3 days) 05/07 07 - 05/08 0705/08 - 05/09 0705/09 07 [...] status to adjust regimen as necessary. Callie Schwartz PharmD [employer] 05/10/2020 09:23 EDT * Karishma Hodge MD [...] Rodriguez MD - 05/09/2020 4:11 PM EDT [facility] Progress Note Date of Admission: 04/28/2020 Antibiotics: [...] He was seen at several ERs including [facility] given Keflex with some improvement. Now admitted with fevers chills leukocytosis MRI revealing lumbar spine discitis osteomyelitis and fluid seen on MRI and epidural space of L5-S1 but no overt neurologic deficits today. ?? Get old records from [facility], it appears no blood cultures were obtained [...] Aydin Srivastava APRN for Dr. Cayetano Rodriguez [facility] * Karishma Hodge MD - 05/09/2020 2:33 [...] 170.2 cm (67 ) Documented at 04/27/2020 3835 Admission Weight 125 kg (275 lb) Documented [...] from the original note were not included. [facility] Medicine Services PROGRESS NOTE Patient Name: Leoncio [...] Date/Time Wound Culture - Wound, Spine, Lumbar [[id number]] (Abnormal) (Susceptibility) Collected: 04/29/20 1843 Lab Status: [...] vitro. Fungus Culture - Tissue, Back, Lower [[id number]] Collected: 04/29/201914 Lab Status: Preliminary result Specimen: Tissue from Back, Lower Updated: 05/06/201999 Fungus Culture No fungus isolated at 1 week AFB Culture - Tissue, Back, Lower [[id number]] Collected: 04/29/201914 Lab Status: Preliminary result Specimen: Tissue from Back, Lower Updated: 05/06/201999 AFB Culture No AFB isolated at 1 week AFB Stain No acid fast bacilli seen on concentrated smear Anaerobic Culture - Tissue, Back, Lower [[id number]] Collected: 04/29/201914 Lab Status: Final result Specimen: Tissue from Back, Lower Updated: 05/04/20 0858 Anaerobic Culture No anaerobes isolated at 5 days Anaerobic Culture - Wound, Spine, Lumbar [[id number]] Collected: 04/29/20 1843 Lab Status: Final result Specimen: Wound from Spine, Lumbar Updated: 05/04/20 0858 Anaerobic Culture No anaerobes isolated at 5 days Blood Culture - Blood, Arm, Right [[id number]] Collected: 04/28/20 0650 Lab Status: Final result Specimen: Blood from Arm, Right Updated: 05/03/20 0800 Blood Culture No growth at 5 days Blood Culture - Blood, Wrist, Right [[id number]] Collected: 04/28/20 0701 Lab Status: Final result Specimen: Blood from Wrist, Right Updated: 05/03/20 0800 Blood Culture No growth at 5 days Tissue / Bone Culture - Tissue, Back, Lower [[id number]] Collected: 04/29/201914 Lab Status: Final result Specimen: Tissue from Back, Lower Updated: 05/02/20 0857 Tissue Culture No growth at 3 days Gram Stain Rare (1+) WBCs seen No organisms seen MRSA Screen, PCR (Inpatient) - Swab, Nares [[id number]] (Normal) Collected: 04/29/20 0150 Lab Status: Final result Specimen: Swab from Nares Updated: 04/29/20 0912 MRSA PCR Negative Narrative: MRSA Negative COVID PRE-OP / PRE-PROCEDURE SCREENING ORDER (NO ISOLATION) - Swab, Nasopharynx [[id number]] (Normal) Collected: 04/28/20 1505 Lab Status: Final result Specimen: Swab from Nasopharynx Updated: 04/28/20 164 Narrative: The following orders were created for panel order COVID PRE-OP / PRE-PROCEDURE SCREENING ORDER (NO ISOLATION) - Swab, Nasopharynx. Procedure Abnormality Status --------- ------ Respiratory Panel PCR w/...[[id number]] Normal Final result Please view results for these tests on the individual orders. 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, CUPOLA CHARGER Swab in UTM/VTM, 3-4 HR TAT - Swab, Nasopharynx [[id number]] (Normal) Collected: 04/28/20 1505 Lab Status: Final [...] Not Detected Narrative: Fact sheet for providers: https://docs.Rack[employer]/wp-content/uploads/BXN2381-1373-XD1.1-EUA-Provi wom-Ybds-Qaqfa-3.pdf Fact sheet for patients: https://docs.Rack[employer]ivity/wp-content/uploads/LAD4720-0633-DR7.4-QET-Mxxnbj m-Puqv-Qhrgu-1.pdf Imaging Results (Last 24 Hours) No results [...] from the original note were not included. [facility] Medicine Services PROGRESS NOTE Patient Name: Leoncio [...] Date/Time Wound Culture - Wound, Spine, Lumbar [[id number]] (Abnormal) (Susceptibility) Collected: 04/29/20 1843 Lab Status: Edited Result - FINAL Specimen: Wound from Spine, Lumbar Updated: 05/07/20701 Wound Culture Rare Staphylococcus epidermidis Gram Stain No WBCs or organisms seen Susceptibility Staphylococcus epidermidis GREGORY Clindamycin Susceptible Inducible Clindamycin Resistance Negative Oxacillin Resistant Tetracycline Susceptible Trimethoprim + Sulfamethoxazole Susceptible Vancomycin Susceptible Susceptibility Comments Staphylococcus epidermidis This isolate does not demonstrate inducible clindamycin resistance in vitro. Fungus Culture - Tissue, Back, Lower [[id number]] Collected: 04/29/201914 Lab Status: Preliminary result Specimen: Tissue from Back, Lower Updated: 05/06/201999 Fungus Culture No fungus isolated at 1 week AFB Culture - Tissue, Back, Lower [[id number]] Collected: 04/29/201914 Lab Status: Preliminary result Specimen: Tissue from Back, Lower Updated: 05/06/201999 AFB Culture No AFB isolated at 1 week AFB Stain No acid fast bacilli seen on concentrated smear Anaerobic Culture - Tissue, Back, Lower [[id number]] Collected: 04/29/20 1915 Lab Status: Final result Specimen: Tissue from Back, Lower Updated: 05/04/20 0858 Anaerobic Culture No anaerobes isolated at 5 days Anaerobic Culture - Wound, Spine, Lumbar [[id number]] Collected: 04/29/20 1843 Lab Status: Final result Specimen: Wound from Spine, Lumbar Updated: 05/04/20 0858 Anaerobic Culture No anaerobes isolated at 5 days Blood Culture - Blood, Arm, Right [[id number]] Collected: 04/28/20 0650 Lab Status: Final result Specimen: Blood from Arm, Right Updated: 05/03/20 0800 Blood Culture No growth at 5 days Blood Culture - Blood, Wrist, Right [[id number]] Collected: 04/28/20 0701 Lab Status: Final result Specimen: Blood from Wrist, Right Updated: 05/03/20 0800 Blood Culture No growth at 5 days Tissue / Bone Culture - Tissue, Back, Lower [[id number]] Collected: 04/29/20 191 Lab Status: Final result Specimen: Tissue from Back, Lower Updated: 05/02/20 0857 Tissue Culture No growth at 3 days Gram Stain Rare (1+) WBCs seen No organisms seen MRSA Screen, PCR (Inpatient) - Swab, Nares [[id number]] (Normal) Collected: 04/29/20 0150 Lab Status: Final result Specimen: Swab from Nares Updated: 04/29/20 0912 MRSA PCR Negative Narrative: MRSA Negative COVID PRE-OP / PRE-PROCEDURE SCREENING ORDER (NO ISOLATION) - Swab, Nasopharynx [[id number]] (Normal) Collected: 04/28/20 1505 Lab Status: Final result Specimen: Swab from Nasopharynx Updated: 04/28/20 1644 Narrative: The following orders were created for panel order COVID PRE-OP / PRE-PROCEDURE SCREENING ORDER (NO ISOLATION) - Swab, Nasopharynx. Procedure Abnormality Status --------- ------ Respiratory Panel PCR w/...[[id number]] Normal Final result Please view results for these tests on the individual orders. 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, CUPOLA CHARGER Swab in UTM/VTM, 3-4 HR TAT - Swab, Nasopharynx [[id number]] (Normal) Collected: 04/28/20 1505 Lab Status: Final result Specimen: Swab from Nasopharynx Updated: 04/28/20 1641 ADENOVIRUS, PCR Not Detected Coronavirus 229E Not [...] Not Detected Narrative: Fact sheet for providers: https://docs.Rack[employer]ivity/wp-content/uploads/WUZ7576-7691-NJ0.1-EUA-Provi nha-Zdgf-Zwvkv-3.pdf Fact sheet for patients: https://docs.Rack[employer]ivity/wp-content/uploads/OPJ2694-0990-FI1.9-KTC-Egkanc d-Cinw-Jyosu-1.pdf Imaging Results (Last 24 Hours) No results [...] Rodriguez MD - 05/08/2020 4:01 PM EDT [facility] Progress Note Date of Admission: 04/28/2020 Antibiotics: [...] He was seen at several ERs including [facility] given Keflex with some improvement. Now admitted with fevers chills leukocytosis MRI revealing lumbar spine discitis osteomyelitis and fluid seen on MRI and epidural space of L5-S1 but no overt neurologic deficits today. ?? Get old records from [facility], it appears no blood cultures were obtained [...] mgt f/u note. Patient currently in dialysis,so certified nurse midwife did not get to discuss d/c plan with him. I spoke with the [facility] dialysis clinic ([place] [phone]), I also spokewith the dailysis RN ( [...] MD 05/08/20 15:46 EDT * Karli Camp [facility] - 05/08/2020 1:34 PM EDT Images from [...] Renal Replacement: HD 5 days a week PRECIPITATE WASHER now on a MWF Schedule Ht - 170.2 cm (67 ) Wt - 122 kg (268 lb) Estimated Creatinine Clearance: 15.3 mL/min (A) (by C-G formula based on SCr of 7.56 mg/dL (H)). Intake & Output (last 3 days) 05/05 701 - 05/06 0705/06 07 - 05/07 0705/07 07 - 05/08 0700 05/08 07 - 05/09 0700 P.O. 250 600 I.V. (mL/kg) 325 (2.7) Total Intake(mL/kg) 250 (2) 925 (7.6) Urine (mL/kg/hr) 0 (0) 150 (0.1) Other 2250 Total Output 2250 150 Net +250 -1325 -150 Urine Unmeasured Occurrence 1 x 2 x Stool Unmeasured Occurrence 2 x Microbiology and Radiology Microbiology Results (last 10 days) Procedure Component Value - Date/Time Anaerobic Culture - Tissue, Back, Lower [[id number]] Collected: 04/29/20 1915 Lab Status: Final result Specimen: Tissue from Back, Lower Updated: 05/04/20 0858 Anaerobic Culture No anaerobes isolated at 5 days Fungus Culture - Tissue, Back, Lower [[id number]] Collected: 04/29/201914 Lab Status: Preliminary result Specimen: Tissue from Back, Lower Updated: 05/06/20 2000 Fungus Culture No fungus isolated at 1 week Tissue / Bone Culture - Tissue, Back, Lower [[id number]] Collected: 04/29/201914 Lab Status: Final result Specimen: Tissue from Back, Lower Updated: 05/02/20 0857 Tissue Culture No growth at 3 days Gram Stain Rare (1+) WBCs seen No organisms seen AFB Culture - Tissue, Back, Lower [[id number]] Collected: 04/29/201914 Lab Status: Preliminary result Specimen: Tissue from Back, Lower Updated: 05/06/201999 AFB Culture No AFB isolated at 1 week AFB Stain No acid fast bacilli seen on concentrated smear Wound Culture - Wound, Spine, Lumbar [[id number]] (Abnormal) (Susceptibility) Collected: 04/29/201842 Lab Status: Edited [...] vitro. Anaerobic Culture - Wound, Spine, Lumbar [[id number]] Collected: 04/29/201842 Lab Status: Final result Specimen: Wound from Spine, Lumbar Updated: 05/04/20 0858 Anaerobic Culture No anaerobes isolated at 5 days MRSA Screen, PCR (Inpatient) - Swab, Nares [[id number]] (Normal) Collected: 04/29/20 0150 Lab Status: Final result Specimen: Swab from Nares Updated: 04/29/20 0912 MRSA PCR Negative Narrative: MRSA Negative COVID PRE-OP / PRE-PROCEDURE SCREENING ORDER (NO ISOLATION) - Swab, Nasopharynx [[id number]] (Normal) Collected: 04/28/20 1505 Lab Status: Final result Specimen: Swab from Nasopharynx Updated: 04/28/20 1644 Narrative: The following orders were created for panel order COVID PRE-OP / PRE-PROCEDURE SCREENING ORDER (NO ISOLATION) - Swab, Nasopharynx. Procedure Abnormality Status --------- ------ Respiratory Panel PCR w/...[[id number]] Normal Final result Please view results for these tests on the individual orders. 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, CUPOLA CHARGER Swab in UTM/VTM, 3-4 HR TAT - Swab, Nasopharynx [[id number]] (Normal) Collected: 04/28/20 1505 Lab Status: Final [...] Not Detected Narrative: Fact sheet for providers: https://docs.Rack[employer]ivity/wp-content/uploads/OTP9410-7423-EJ6.1-EUA-Provi emv-Lvmk-Ydmez-3.pdf Fact sheet for patients: https://docs.Rack[employer]ivity/wp-content/uploads/KHO8860-1998-NB4.8-DXX-Fztajs l-Ohtp-Bkgpn-1.pdf Evaluation of Level Results from last 7 days Lab Units 05/08/20 0855 05/06/20 0557 VANCOMYCIN RM mcg/mL Assessment/Plan: 1. Pharmacy to dose vancomycin for [...] adjust regimen as necessary. Karli Camp, PharmD [employer] 05/08/2020 13:24 EDT * Angela Romero, RD - 05/08/2020 12:08 PM EDT Clinical Nutrition Reason for Visit: [facility] Patient Name: Leoncio Rollins Date of : 1975 Date of Encounter: 05/08/20 12:09 EDT Admission date: 04/28/2020 Nutrition Assessment Admission Problem List: Sepsis (CMS/HCC) KIM (nonalcoholic steatohepatitis) History of liver transplant (CMS/HCC) Immunosuppression (CMS/HCC) Type 2 diabetes mellitus (CMS/HCC) Altered mental state ESRD (end stage renal disease) (CMS/HCC) Hyponatremia Discitis Epidural abscess Leukocytosis PMH: He [...] Rodriguez MD - 05/07/2020 7:36 PM EDT [facility] Progress Note Date of Admission: 04/28/2020 Antibiotics: [...] He was seen at several ERs including [facility] given Keflex with some improvement. Now admitted with fevers chills leukocytosis MRI revealing lumbar spine discitis osteomyelitis and fluid seen on MRI and epidural space of L5-S1 but no overt neurologic deficits today. ?? Get old records from [facility], it appears no blood cultures were obtained [...] from the original note were not included. [facility] Medicine Services PROGRESS NOTE Patient Name: Leoncio [...] Date/Time Wound Culture - Wound, Spine, Lumbar [[id number]] (Abnormal) (Susceptibility) Collected: 04/29/201842 Lab Status: Edited Result - FINAL Specimen: Wound from Spine, Lumbar Updated: 05/07/20701 Wound Culture Rare Staphylococcus epidermidis Gram Stain No WBCs or organisms seen Susceptibility Staphylococcus epidermidis GREGORY Clindamycin Susceptible Inducible Clindamycin Resistance Negative Oxacillin Resistant Tetracycline Susceptible Trimethoprim + Sulfamethoxazole Susceptible Vancomycin Susceptible Susceptibility Comments Staphylococcus epidermidis This isolate does not demonstrate inducible clindamycin resistance in vitro. Fungus Culture - Tissue, Back, Lower [[id number]] Collected: 04/29/201914 Lab Status: Preliminary result Specimen: Tissue from Back, Lower Updated: 05/06/201999 Fungus Culture No fungus isolated at 1 week AFB Culture - Tissue, Back, Lower [[id number]] Collected: 04/29/201914 Lab Status: Preliminary result Specimen: Tissue from Back, Lower Updated: 05/06/201999 AFB Culture No AFB isolated at 1 week AFB Stain No acid fast bacilli seen on concentrated smear Anaerobic Culture - Tissue, Back, Lower [[id number]] Collected: 04/29/201914 Lab Status: Final result Specimen: Tissue from Back, Lower Updated: 05/04/20 08 Anaerobic Culture No anaerobes isolated at 5 days Anaerobic Culture - Wound, Spine, Lumbar [[id number]] Collected: 04/29/201842 Lab Status: Final result Specimen: Wound from Spine, Lumbar Updated: 05/04/20 0858 Anaerobic Culture No anaerobes isolated at 5 days Blood Culture - Blood, Arm, Right [[id number]] Collected: 04/28/20 0650 Lab Status: Final result Specimen: Blood from Arm, Right Updated: 05/03/20 0800 Blood Culture No growth at 5 days Blood Culture - Blood, Wrist, Right [[id number]] Collected: 04/28/20 0701 Lab Status: Final result Specimen: Blood from Wrist, Right Updated: 05/03/20 0800 Blood Culture No growth at 5 days Tissue / Bone Culture - Tissue, Back, Lower [[id number]] Collected: 04/29/20 1915 Lab Status: Final result Specimen: Tissue from Back, Lower Updated: 05/02/20 0857 Tissue Culture No growth at 3 days Gram Stain Rare (1+) WBCs seen No organisms seen MRSA Screen, PCR (Inpatient) - Swab, Nares [[id number]] (Normal) Collected: 04/29/20 0150 Lab Status: Final result Specimen: Swab from Nares Updated: 04/29/20 0912 MRSA PCR Negative Narrative: MRSA Negative COVID PRE-OP / PRE-PROCEDURE SCREENING ORDER (NO ISOLATION) - Swab, Nasopharynx [[id number]] (Normal) Collected: 04/28/20 1505 Lab Status: Final result Specimen: Swab from Nasopharynx Updated: 04/28/20 1644 Narrative: The following orders were created for panel order COVID PRE-OP / PRE-PROCEDURE SCREENING ORDER (NO ISOLATION) - Swab, Nasopharynx. Procedure Abnormality Status --------- ------ Respiratory Panel PCR w/...[[id number]] Normal Final result Please view results for these tests on the individual orders. 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, CUPOLA CHARGER Swab in UTM/VTM, 3-4 HR TAT - Swab, Nasopharynx [[id number]] (Normal) Collected: 04/28/20 1505 Lab Status: Final [...] Not Detected Narrative: Fact sheet for providers: https://docs.[employer]ack[employer]/wp-content/uploads/YMR2837-3634-QX0.1-Kuldip zhx-Nkzk-Jvzrp-3.pdf Fact sheet for patients: https://docs.Rack[employer]/wp-content/uploads/FEU1267-1769-BB2.4-MJO-Acrjeo p-Clly-Mslzy-1.pdf Imaging Results (Last 24 Hours) No results [...] 05/07/2020 4:47 PM EDT Continued Stay Note [facility] Patient Name: Leoncio Rollins Today's Date: 05/07/2020 Admit Date: 04/28/2020 Discharge Plan Row Name 05/07/20 1642 Plan Plan TBD Plan Comments Case mgt f/u. I spoke with Mr Rollins and at bedside. Discussed home IV antibiotics. He currently does his own home hemodialysis. I spoke with an RN at [facility] ([facility]), she was unsure if he could self administer IV antibiotics through his port at home, she will discuss with supervisor personnel clerks of clinic and let us know.He could [...] from the original note were not included. [facility] Medicine Services PROGRESS NOTE Patient Name: Leoncio [...] Date/Time Fungus Culture - Tissue, Back, Lower [[id number]] Collected: 04/29/201914 Lab Status: Preliminary result Specimen: Tissue from Back, Lower Updated: 05/06/201999 Fungus Culture No fungus isolated at 1 week AFB Culture - Tissue, Back, Lower [[id number]] Collected: 04/29/201914 Lab Status: Preliminary result Specimen: Tissue from Back, Lower Updated: 05/06/201999 AFB Culture No AFB isolated at 1 week AFB Stain No acid fast bacilli seen on concentrated smear Wound Culture - Wound, Spine, Lumbar [[id number]] (Abnormal) Collected: 04/29/20 184 Lab Status: Preliminary result Specimen: Wound from Spine, Lumbar Updated: 05/05/20 0944 Wound Culture Rare Staphylococcus, coagulase negative Gram Stain No WBCs or organisms seen Narrative: ID and sensitivity to follow Anaerobic Culture - Tissue, Back, Lower [[id number]] Collected: 04/29/201914 Lab Status: Final result Specimen: Tissue from Back, Lower Updated: 05/04/20 0858 Anaerobic Culture No anaerobes isolated at 5 days Anaerobic Culture - Wound, Spine, Lumbar [[id number]] Collected: 04/29/20 184 Lab Status: Final result Specimen: Wound from Spine, Lumbar Updated: 05/04/20 0858 Anaerobic Culture No anaerobes isolated at 5 days Blood Culture - Blood, Arm, Right [[id number]] Collected: 04/28/20 0650 Lab Status: Final result Specimen: Blood from Arm, Right Updated: 05/03/20 0800 Blood Culture No growth at 5 days Blood Culture - Blood, Wrist, Right [[id number]] Collected: 04/28/20 0701 Lab Status: Final result Specimen: Blood from Wrist, Right Updated: 05/03/20 0800 Blood Culture No growth at 5 days Tissue / Bone Culture - Tissue, Back, Lower [[id number]] Collected: 04/29/20 1915 Lab Status: Final result Specimen: Tissue from Back, Lower Updated: 05/02/20 0857 Tissue Culture No growth at 3 days Gram Stain Rare (1+) WBCs seen No organisms seen MRSA Screen, PCR (Inpatient) - Swab, Nares [[id number]] (Normal) Collected: 04/29/20 0150 Lab Status: Final result Specimen: Swab from Nares Updated: 04/29/20 0912 MRSA PCR Negative Narrative: MRSA Negative COVID PRE-OP / PRE-PROCEDURE SCREENING ORDER (NO ISOLATION) - Swab, Nasopharynx [[id number]] (Normal) Collected: 04/28/20 1505 Lab Status: Final result Specimen: Swab from Nasopharynx Updated: 04/28/20 1644 Narrative: The following orders were created for panel order COVID PRE-OP / PRE-PROCEDURE SCREENING ORDER (NO ISOLATION) - Swab, Nasopharynx. Procedure Abnormality Status --------- ------ Respiratory Panel PCR w/...[[id number]] Normal Final result Please view results for these tests on the individual orders. 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, CUPOLA CHARGER Swab in UTM/VTM, 3-4 HR TAT - Swab, Nasopharynx [[id number]] (Normal) Collected: 04/28/20 1505 Lab Status: Final [...] Not Detected Narrative: Fact sheet for providers: https://docs.[employer]ack[employer]/wp-content/uploads/NZD1871-0236-PT8.1-EUA-Provi kfy-Xjtd-Swwkd-3.pdf Fact sheet for patients: https://docs.Rack[employer]ivity/wp-content/uploads/WVR2859-7344-GJ0.1-UOY-Fonavm c-Zzcv-Swvgn-1.pdf Imaging Results (Last 24 Hours) No results [...] Rodriguez MD - 05/06/2020 2:00 PM EDT [facility] Progress Note Date of Admission: 04/28/2020 Antibiotics: [...] He was seen at several ERs including [facility] given Keflex with some improvement. Now admitted with fevers chills leukocytosis MRI revealing lumbar spine discitis osteomyelitis and fluid seen on MRI and epidural space of L5-S1 but no overt neurologic deficits today. ?? 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 Ht - 170.2 cm (67 ) Wt - 122 kg (268 lb) Estimated Creatinine Clearance: 10.2 mL/min (A) (by C-G formula based on SCr of 11.3 mg/dL (H)). Intake & Output (last 3 days) 05/03 701 - 05/04 0705/04 - 05/05 0705/05 07 - 05/06 0705/06 0705/07 0700 P.O. 600 250 I.V. (mL/kg) 100 [...] Date/Time Anaerobic Culture - Tissue, Back, Lower [[id number]] Collected: 04/29/201914 Lab Status: Final result Specimen: Tissue from Back, Lower Updated: 05/04/20 0858 Anaerobic Culture No anaerobes isolated at 5 days Fungus Culture - Tissue, Back, Lower [[id number]] Collected: 04/29/201914 Lab Status: Preliminary result Specimen: Tissue from Back, Lower Updated: 05/04/201999 Fungus Culture No fungus isolated at less than 1 week Tissue / Bone Culture - Tissue, Back, Lower [[id number]] Collected: 04/29/201914 Lab Status: Final result Specimen: Tissue from Back, Lower Updated: 05/02/20 0857 Tissue Culture No growth at 3 days Gram Stain Rare (1+) WBCs seen No organisms seen AFB Culture - Tissue, Back, Lower [[id number]] Collected: 04/29/201914 Lab Status: Preliminary result Specimen: Tissue from Back, Lower Updated: 05/04/201999 AFB Culture No AFB isolated at less than 1 week AFB Stain No acid fast bacilli seen on concentrated smear Wound Culture - Wound, Spine, Lumbar [[id number]] (Abnormal) Collected: 04/29/20 1843 Lab Status: Preliminary result Specimen: Wound from Spine, Lumbar Updated: 05/05/20 0944 Wound Culture Rare Staphylococcus, coagulase negative Gram Stain No WBCs or organisms seen Narrative: ID and sensitivity to follow Anaerobic Culture - Wound, Spine, Lumbar [[id number]] Collected: 04/29/20 1843 Lab Status: Final result Specimen: Wound from Spine, Lumbar Updated: 05/04/20 0858 Anaerobic Culture No anaerobes isolated at 5 days MRSA Screen, PCR (Inpatient) - Swab, Nares [[id number]] (Normal) Collected: 04/29/20 0150 Lab Status: Final result Specimen: Swab from Nares Updated: 04/29/20 0912 MRSA PCR Negative Narrative: MRSA Negative COVID PRE-OP / PRE-PROCEDURE SCREENING ORDER (NO ISOLATION) - Swab, Nasopharynx [[id number]] (Normal) Collected: 04/28/20 1505 Lab Status: Final result Specimen: Swab from Nasopharynx Updated: 04/28/20 1644 Narrative: The following orders were created for panel order COVID PRE-OP / PRE-PROCEDURE SCREENING ORDER (NO ISOLATION) - Swab, Nasopharynx. Procedure Abnormality Status --------- ------ Respiratory Panel PCR w/...[[id number]] Normal Final result Please view results for these tests on the individual orders. 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, CUPOLA CHARGER Swab in UTM/SCM, 3-4 HR TAT - Swab, Nasopharynx [[id number]] (Normal) Collected: 04/28/20 1505 Lab Status: Final [...] Not Detected Narrative: Fact sheet for providers: https://docs.[employer]/wp-content/uploads/PVC2856-8518-LH2.1-EUA-Provi bvh-Pzzi-Hmnzc-3.pdf Fact sheet for patients: https://docs.[employer]/wp-content/uploads/BZR8757-2436-NT1.7-RAS-Ztrxuu y-Vijb-Fijjx-1.pdf Blood Culture - Blood, Wrist, Right [[id number]] Collected: 04/28/20 0701 Lab Status: Final result Specimen: Blood from Wrist, Right Updated: 05/03/20 0800 Blood Culture No growth at 5 days Blood Culture - Blood, Arm, Right [[id number]] Collected: 04/28/20 0650 Lab Status: Final result [...] status to adjust regimen as necessary. Karli Camp PharmD [employer] Splitter Machine Operator 05/06/2020 11:14 EDT * Karishma Hodge MD [...] (275 lb) Documented at 04/27/2020 2355 05/05 0701 - 05/06 0700 In: 250 [P.O.:250] Out: [...] Rodriguez MD - 05/05/2020 7:11 PM EDT [facility] Progress Note Date of Admission: 04/28/2020 Antibiotics: [...] He was seen at several ERs including [facility] given Keflex with some improvement. Now admitted with fevers chills leukocytosis MRI revealing lumbar spine discitis osteomyelitis and fluid seen on MRI and epidural space of L5-S1 but no overt neurologic deficits today. ?? Get old records from [facility], it appears no blood cultures were obtained [...] today. Cayetano Rodriguez MD 05/05/2020 * Naomi Ham, MS,RD,LD - 05/05/2020 4:39 PM EDT Adult [...] 1637 Admit Weight Admit Weight -- ht=67in, gr=900gf; BMI=41.9 Nutrition Prescription Ordered Row Name 05/05/20 [...] kg (275 lb) Documented at 04/27/2020 2355 05/04 0701 - 05/05 0700 In: 100 [...] from the original note were not included. [facility] Medicine Services PROGRESS NOTE Patient Name: Leoncio [...] at times though he is not verbalizing. 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, difficult to get him to let go, [...] Date/Time Fungus Culture - Tissue, Back, Lower [[id number]] Collected: 04/29/201914 Lab Status: Preliminary result Specimen: Tissue from Back, Lower Updated: 05/04/201999 Fungus Culture No fungus isolated at less than 1 week AFB Culture - Tissue, Back, Lower [[id number]] Collected: 04/29/201914 Lab Status: Preliminary result Specimen: Tissue from Back, Lower Updated: 05/04/201999 AFB Culture No AFB isolated at less than 1 week AFB Stain No acid fast bacilli seen on concentrated smear Anaerobic Culture - Tissue, Back, Lower [[id number]] Collected: 04/29/201914 Lab Status: Final result Specimen: Tissue from Back, Lower Updated: 05/04/20857 Anaerobic Culture No anaerobes isolated at 5 days Anaerobic Culture - Wound, Spine, Lumbar [[id number]] Collected: 04/29/20 1843 Lab Status: Final result Specimen: Wound from Spine, Lumbar Updated: 05/04/20 0858 Anaerobic Culture No anaerobes isolated at 5 days Blood Culture - Blood, Arm, Right [[id number]] Collected: 04/28/20 0650 Lab Status: Final result Specimen: Blood from Arm, Right Updated: 05/03/20 0800 Blood Culture No growth at 5 days Blood Culture - Blood, Wrist, Right [[id number]] Collected: 04/28/20 0701 Lab Status: Final result Specimen: Blood from Wrist, Right Updated: 05/03/20 0800 Blood Culture No growth at 5 days Tissue / Bone Culture - Tissue, Back, Lower [[id number]] Collected: 04/29/20 1915 Lab Status: Final result Specimen: Tissue from Back, Lower Updated: 05/02/20 0857 Tissue Culture No growth at 3 days Gram Stain Rare (1+) WBCs seen No organisms seen Wound Culture - Wound, Spine, Lumbar [[id number]] (Abnormal) Collected: 04/29/20 1843 Lab Status: Final result Specimen: Wound from Spine, Lumbar Updated: 05/01/20 0812 Wound Culture Rare Staphylococcus, coagulase negative Gram Stain No WBCs or organisms seen MRSA Screen, PCR (Inpatient) - Swab, Nares [[id number]] (Normal) Collected: 04/29/20 0150 Lab Status: Final result Specimen: Swab from Nares Updated: 04/29/20 09 MRSA PCR Negative Narrative: MRSA Negative COVID PRE-OP / PRE-PROCEDURE SCREENING ORDER (NO ISOLATION) - Swab, Nasopharynx [[id number]] (Normal) Collected: 04/28/20 1505 Lab Status: Final result Specimen: Swab from Nasopharynx Updated: 04/28/20 1644 Narrative: The following orders were created for panel order COVID PRE-OP / PRE-PROCEDURE SCREENING ORDER (NO ISOLATION) - Swab, Nasopharynx. Procedure Abnormality Status --------- ------ Respiratory Panel PCR w/...[[id number]] Normal Final result Please view results for these tests on the individual orders. 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, CUPOLA CHARGER Swab in UTM/VTM, 3-4 HR TAT - Swab, Nasopharynx [[id number]] (Normal) Collected: 04/28/20 1505 Lab Status: Final [...] Not Detected Narrative: Fact sheet for providers: https://docs.Rack[employer]/wp-content/uploads/EFW7880-3114-UP7.1-EUA-Provi qbv-Cjmj-Vyivt-3.pdf Fact sheet for patients: https://docs.Rack[employer]/wp-content/uploads/UEL5235-2371-TU0.3-QYX-Ofkqhj v-Yxrx-Sfnhr-1.pdf Imaging Results (Last 24 Hours) No results [...] epidural abscess - BCx negative. Wound cx [facility] HEALTH AIDE -Respiratory viral panel negative - MRSA PCR [...] 05/04/2020 4:35 PM EDT Continued Stay Note [facility] Patient Name: Leoncio Rollins Today's Date: 05/04/2020 Admit Date: 04/28/2020 Discharge Plan Row Name 05/04/20 1634 Plan Plan TBD Plan Comments Case mgt f/u. currently in procedure,so CM unable to visit with patient, will f/u in am. PT evbrent noed, still unable to ambulate Discharge Codes [...] 30 Minutes Intravenous Every 24 Hours 05/01/20199905/08/20 1959 05/01/20 1140 vancomycin in dextrose 5% 150 [...] Garnica MD 0.5 mg Oral Weekly 04/28/20 2130 04/28/20 1915 vancomycin (dosing per levels) Marilin Conn [...] Renal Replacement: HD 5 days a week 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 Ht - 170.2 cm (67 ) Wt - 122 kg (268 lb) Estimated Creatinine Clearance: 10.2 mL/min (A) (by C-G formula based on SCr of 11.3 mg/dL (H)). Intake & Output (last 3 days) 05/01 701 - 05/02 0705/02 07 - 05/03 0700 05/03 0701 - 05/04 0700 05/04 07 - 05/05 0700 P.O. 480 1040 600 Blood 1080 [...] Date/Time Anaerobic Culture - Tissue, Back, Lower [[id number]] Collected: 04/29/201914 Lab Status: Final result Specimen: Tissue from Back, Lower Updated: 05/04/20 0858 Anaerobic Culture No anaerobes isolated at 5 days Tissue / Bone Culture - Tissue, Back, Lower [[id number]] Collected: 04/29/201914 Lab Status: Final result Specimen: Tissue from Back, Lower Updated: 05/02/20 0857 Tissue Culture No growth at 3 days Gram Stain Rare (1+) WBCs seen No organisms seen AFB Culture - Tissue, Back, Lower [[id number]] Collected: 04/29/201914 Lab Status: Preliminary result Specimen: Tissue from Back, Lower Updated: 04/30/20 1225 AFB Stain No acid fast bacilli seen on concentrated smear Wound Culture - Wound, Spine, Lumbar [[id number]] (Abnormal) Collected: 04/29/201842 Lab Status: Final result Specimen: Wound from Spine, Lumbar Updated: 05/01/20 0812 Wound Culture Rare Staphylococcus, coagulase negative Gram Stain No WBCs or organisms seen Anaerobic Culture - Wound, Spine, Lumbar [[id number]] Collected: 04/29/201842 Lab Status: Final result Specimen: Wound from Spine, Lumbar Updated: 05/04/20 0858 Anaerobic Culture No anaerobes isolated at 5 days MRSA Screen, PCR (Inpatient) - Swab, Nares [[id number]] (Normal) Collected: 04/29/20 0150 Lab Status: Final result Specimen: Swab from Nares Updated: 04/29/20 0912 MRSA PCR Negative Narrative: MRSA Negative COVID PRE-OP / PRE-PROCEDURE SCREENING ORDER (NO ISOLATION) - Swab, Nasopharynx [[id number]] (Normal) Collected: 04/28/20 1505 Lab Status: Final result Specimen: Swab from Nasopharynx Updated: 04/28/20 1644 Narrative: The following orders were created for panel order COVID PRE-OP / PRE-PROCEDURE SCREENING ORDER (NO ISOLATION) - Swab, Nasopharynx. Procedure Abnormality Status --------- ------ Respiratory Panel PCR w/...[[id number]] Normal Final result Please view results for these tests on the individual orders. 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, CUPOLA CHARGER Swab in UTM/VTM, 3-4 HR TAT - Swab, Nasopharynx [[id number]] (Normal) Collected: 04/28/20 1505 Lab Status: Final [...] Not Detected Narrative: Fact sheet for providers: https://docs.Rack[employer]/wp-content/uploads/MWB3661-5518-CB4.1-EUA-Provi xsz-Epru-Euumj-3.pdf Fact sheet for patients: https://docs.Rack[employer]/wp-content/uploads/GEI2119-5021-HU8.5-ERQ-Vgsilj m-Avvg-Zmhnd-1.pdf Blood Culture - Blood, Wrist, Right [[id number]] Collected: 04/28/20 0701 Lab Status: Final result Specimen: Blood from Wrist, Right Updated: 05/03/20 0800 Blood Culture No growth at 5 days Blood Culture - Blood, Arm, Right [[id number]] Collected: 04/28/20 0650 Lab Status: Final result [...] any additional doses. Underwent HD session today, Mon 05/04. No vancomycin level to review. Will schedule vancomycin 750mgx 1 today to be given after dialysis. Dosing per levels at this time. No defined inpatient HD schedule currently, will order a vancomycin random level for Mon, 05/06 Rip labs pending scheduling of next HD session. Pharmacy will continue to monitor renal function, cultures and sensitivities, and clinical status to adjust regimen as necessary. Vivek Ramos RPH 05/04/20 13:28 EDT * Cayetano Rodriguez MD - 05/04/2020 11:59 AM EDT [facility] Progress Note Date of Admission: 04/28/2020 Antibiotics: [...] He was seen at several ERs including [facility] given Keflex with some improvement. Now admitted with fevers chills leukocytosis MRI revealing lumbar spine discitis osteomyelitis and fluid seen on MRI and epidural space of L5-S1 but no overt neurologic deficits today. ?? Get old records from [facility], it appears no blood cultures were obtained [...] EDT LOS: 6 days Patient Care Team: dEgar Fournier MD as PCP - General (Family [...] kg (275 lb) Documented at 04/27/2020 2355 05/03 0701 - 05/04 0700 In: 600 [...] from the original note were not included. [facility] Medicine Services PROGRESS NOTE Patient Name: Leoncio [...] Date/Time Anaerobic Culture - Tissue, Back, Lower [[id number]] Collected: 04/29/201914 Lab Status: Final result Specimen: Tissue from Back, Lower Updated: 05/04/20 0858 Anaerobic Culture No anaerobes isolated at 5 days Anaerobic Culture - Wound, Spine, Lumbar [[id number]] Collected: 04/29/201842 Lab Status: Final result Specimen: Wound from Spine, Lumbar Updated: 05/04/20 0858 Anaerobic Culture No anaerobes isolated at 5 days Blood Culture - Blood, Arm, Right [[id number]] Collected: 04/28/20 0650 Lab Status: Final result Specimen: Blood from Arm, Right Updated: 05/03/20 0800 Blood Culture No growth at 5 days Blood Culture - Blood, Wrist, Right [[id number]] Collected: 04/28/20 0701 Lab Status: Final result Specimen: Blood from Wrist, Right Updated: 05/03/20 0800 Blood Culture No growth at 5 days Tissue / Bone Culture - Tissue, Back, Lower [[id number]] Collected: 04/29/201914 Lab Status: Final result Specimen: Tissue from Back, Lower Updated: 05/02/20 0857 Tissue Culture No growth at 3 days Gram Stain Rare (1+) WBCs seen No organisms seen Wound Culture - Wound, Spine, Lumbar [[id number]] (Abnormal) Collected: 04/29/201842 Lab Status: Final result Specimen: Wound from Spine, Lumbar Updated: 05/01/20 0812 Wound Culture Rare Staphylococcus, coagulase negative Gram Stain No WBCs or organisms seen AFB Culture - Tissue, Back, Lower [[id number]] Collected: 04/29/201914 Lab Status: Preliminary result Specimen: Tissue from Back, Lower Updated: 04/30/20 1225 AFB Stain No acid fast bacilli seen on concentrated smear MRSA Screen, PCR (Inpatient) - Swab, Nares [[id number]] (Normal) Collected: 04/29/20 0150 Lab Status: Final result Specimen: Swab from Nares Updated: 04/29/20 0912 MRSA PCR Negative Narrative: MRSA Negative COVID PRE-OP / PRE-PROCEDURE SCREENING ORDER (NO ISOLATION) - Swab, Nasopharynx [[id number]] (Normal) Collected: 04/28/20 1505 Lab Status: Final result Specimen: Swab from Nasopharynx Updated: 04/28/20 1644 Narrative: The following orders were created for panel order COVID PRE-OP / PRE-PROCEDURE SCREENING ORDER (NO ISOLATION) - Swab, Nasopharynx. Procedure Abnormality Status --------- ------ Respiratory Panel PCR w/...[[id number]] Normal Final result Please view results for these tests on the individual orders. 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, CUPOLA CHARGER Swab in UTM/VTM, 3-4 HR TAT - Swab, Nasopharynx [[id number]] (Normal) Collected: 04/28/20 1505 Lab Status: Final [...] Not Detected Narrative: Fact sheet for providers: https://docs.[employer]/wp-content/uploads/BXB5456-5328-CP6.1-EUA-Provi suw-Belg-Vjdzx-3.pdf Fact sheet for patients: https://docs.[employer]ack[employer]/wp-content/uploads/BGC2976-7242-BV4.8-LTU-Ypfsai n-Fqhw-Pcjps-1.pdf Imaging Results (Last 24 Hours) No results [...] epidural abscess - BCx negative. Wound cx [facility] HEALTH AIDE -Respiratory viral panel negative - MRSA PCR [...] of Support Prior to Arrest): Full * iHlton Hamm MD - 05/03/2020 12:08 PM EDT [...] Hamm MD 05/03/20 12:08 EDT * Humza Valadez APRN - 05/03/2020 10:14 AM EDT GI Daily [...] MD Signed: 04/28/2020 6:41 AM Workstation Name: [facility] Ct Chest Without Contrast Result Date: [...] MD Signed: 04/28/2020 6:34 AM Workstation Name: [facility] Ct Lumbar Spine Without Contrast Result [...] Signed: 04/28/2020 6:28 AM Workstation Name: [id number] Mri Lumbar Spine Without Contrast Result [...] 1:58 AM Workstation Name: [id number] Fl C Arm During Surgery Result Date: [...] region 3. Acute renal failure on dialysis ([facility]) 4. Bandemia 5. Abscess in epidural space [...] from the original note were not included. [facility] Medicine Services PROGRESS NOTE Patient Name: Leoncio [...] Units 05/03/20 0955 05/01/20 0907 04/30/20 0759 04/28/20 1924 WBC 10*3/mm3 9.65 7.58 9.44 < > [...] 04/30/20 0759 04/29/20 1533 04/29/20 0618 04/28/20 1924 04/28/20 0016 [...] Date/Time Blood Culture - Blood, Arm, Right [[id number]] Collected: 04/28/20 0650 Lab Status: Final result Specimen: Blood from Arm, Right Updated: 05/03/20 0800 Blood Culture No growth at 5 days Blood Culture - Blood, Wrist, Right [[id number]] Collected: 04/28/20 0701 Lab Status: Final result Specimen: Blood from Wrist, Right Updated: 05/03/20 0800 Blood Culture No growth at 5 days Tissue / Bone Culture - Tissue, Back, Lower [[id number]] Collected: 04/29/20 191 Lab Status: Final result Specimen: Tissue from Back, Lower Updated: 05/02/20 0857 Tissue Culture No growth at 3 days Gram Stain Rare (1+) WBCs seen No organisms seen Anaerobic Culture - Tissue, Back, Lower [[id number]] Collected: 04/29/201914 Lab Status: Preliminary result Specimen: Tissue from Back, Lower Updated: 05/02/20 0716 Anaerobic Culture No anaerobes isolated at 3 days Anaerobic Culture - Wound, Spine, Lumbar [[id number]] Collected: 04/29/20 1843 Lab Status: Preliminary result Specimen: Wound from Spine, Lumbar Updated: 05/02/20 0716 Anaerobic Culture No anaerobes isolated at 3 days Wound Culture - Wound, Spine, Lumbar [[id number]] (Abnormal) Collected: 04/29/20 1843 Lab Status: Final result Specimen: Wound from Spine, Lumbar Updated: 05/01/20 0812 Wound Culture Rare Staphylococcus, coagulase negative Gram Stain No WBCs or organisms seen AFB Culture - Tissue, Back, Lower [[id number]] Collected: 04/29/20 191 Lab Status: Preliminary result Specimen: Tissue from Back, Lower Updated: 04/30/20 1225 AFB Stain No acid fast bacilli seen on concentrated smear MRSA Screen, PCR (Inpatient) - Swab, Nares [[id number]] (Normal) Collected: 04/29/20 0150 Lab Status: Final result Specimen: Swab from Nares Updated: 04/29/20 0912 MRSA PCR Negative Narrative: MRSA Negative COVID PRE-OP / PRE-PROCEDURE SCREENING ORDER (NO ISOLATION) - Swab, Nasopharynx [[id number]] (Normal) Collected: 04/28/20 1505 Lab Status: Final result Specimen: Swab from Nasopharynx Updated: 04/28/20 1644 Narrative: The following orders were created for panel order COVID PRE-OP / PRE-PROCEDURE SCREENING ORDER (NO ISOLATION) - Swab, Nasopharynx. Procedure Abnormality Status --------- ------ Respiratory Panel PCR w/...[[id number]] Normal Final result Please view results for these tests on the individual orders. 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, CUPOLA CHARGER Swab in UTM/VTM, 3-4 HR TAT - Swab, Nasopharynx [[id number]] (Normal) Collected: 04/28/20 1505 Lab Status: Final [...] Not Detected Narrative: Fact sheet for providers: https://docs.Racktivity/wp-content/uploads/CXC5065-9882-YF9.1-EUA-Provi yuu-Lypr-Fviap-3.pdf Fact sheet for patients: https://docs.Rack[employer]ivity/wp-content/uploads/SUO4922-6743-II3.6-BTH-Ucrofs r-Sadj-Nqtdj-1.pdf Imaging Results (Last 24 Hours) No results [...] epidural abscess - BCx negative. Wound cx HOSPICE HOME HEALTH AIDE -Respiratory viral panel negative - MRSA PCR [...] region 3. Acute renal failure on dialysis ([facility]) 4. Bandemia 5. Abscess in epidural space [...] from the original note were not included. [facility] Medicine Services PROGRESS NOTE Patient Name: Leoncio [...] from last 7 days Lab Units 05/01/20 0904/30/2075804/29/20 1533 04/29/2061704/28/20192304/28/20 0016 SODIUM mmol/L 134* 131* 132* 134* [...] Date/Time Anaerobic Culture - Tissue, Back, Lower [[id number]] Collected: 04/29/201914 Lab Status: Preliminary result Specimen: Tissue from Back, Lower Updated: 05/02/20 0716 Anaerobic Culture No anaerobes isolated at 3 days Anaerobic Culture - Wound, Spine, Lumbar [[id number]] Collected: 04/29/20 184 Lab Status: Preliminary result Specimen: Wound from Spine, Lumbar Updated: 05/02/20 0716 Anaerobic Culture No anaerobes isolated at 3 days Wound Culture - Wound, Spine, Lumbar [[id number]] (Abnormal) Collected: 04/29/201842 Lab Status: Final result Specimen: Wound from Spine, Lumbar Updated: 05/01/20 0812 Wound Culture Rare Staphylococcus, coagulase negative Gram Stain No WBCs or organisms seen Blood Culture - Blood, Arm, Right [[id number]] Collected: 04/28/20 0650 Lab Status: Preliminary result Specimen: Blood from Arm, Right Updated: 05/01/20 0800 Blood Culture No growth at 3 days Blood Culture - Blood, Wrist, Right [[id number]] Collected: 04/28/20 0701 Lab Status: Preliminary result Specimen: Blood from Wrist, Right Updated: 05/01/20 0800 Blood Culture No growth at 3 days Tissue / Bone Culture - Tissue, Back, Lower [[id number]] Collected: 04/29/201914 Lab Status: Preliminary result Specimen: Tissue from Back, Lower Updated: 05/01/20 0704 Tissue Culture No growth at 2 days Gram Stain Rare (1+) WBCs seen No organisms seen AFB Culture - Tissue, Back, Lower [[id number]] Collected: 04/29/201914 Lab Status: Preliminary result Specimen: Tissue from Back, Lower Updated: 04/30/20 1225 AFB Stain No acid fast bacilli seen on concentrated smear MRSA Screen, PCR (Inpatient) - Swab, Nares [[id number]] (Normal) Collected: 04/29/20 0150 Lab Status: Final result Specimen: Swab from Nares Updated: 04/29/20 0912 MRSA PCR Negative Narrative: MRSA Negative COVID PRE-OP / PRE-PROCEDURE SCREENING ORDER (NO ISOLATION) - Swab, Nasopharynx [[id number]] (Normal) Collected: 04/28/20 1505 Lab Status: Final result Specimen: Swab from Nasopharynx Updated: 04/28/20 1644 Narrative: The following orders were created for panel order COVID PRE-OP / PRE-PROCEDURE SCREENING ORDER (NO ISOLATION) - Swab, Nasopharynx. Procedure Abnormality Status --------- ------ Respiratory Panel PCR w/...[[id number]] Normal Final result Please view results for these tests on the individual orders. 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, CUPOLA CHARGER Swab in UTM/VTM, 3-4 HR TAT - Swab, Nasopharynx [[id number]] (Normal) Collected: 04/28/20 1505 Lab Status: Final [...] Not Detected Narrative: Fact sheet for providers: https://docs.Racktivity/wp-content/uploads/FKM3980-8320-UT0.1-EUA-Provi hct-Qboi-Pouis-3.pdf Fact sheet for patients: https://docs.Rack[employer]/wp-content/uploads/OHC6773-4469-WX1.6-YTK-Beysqp e-Cwzc-Nauxz-1.pdf Imaging Results (Last 24 Hours) No results [...] epidural abscess - BCx negative. 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 [facility] does not accept dialysis patients at this time so patient would be referred to acute rehab facilities out of the area. Plan pending tbd pending progress w/PT and medical course. CM following. Discharge Codes No documentation. 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 Inpatient scheduled for TRSa. Ht - 170.2 cm (67 ) Wt - 122 kg (268 lb) Estimated Creatinine Clearance: 11.5 mL/min (A) (by C-G formula based on SCr of 10.03 mg/dL (H)). Intake & Output (last 3 days) 04/28 701 - 04/29 0704/29 - 04/30 0704/30 07 - 05/01 0705/01 07 - 05/02 0700 P.O. 500 300 I.V. (mL/kg) 310 (2.5) Blood 1080 IV Piggyback 850 Total Intake(mL/kg) 1160 (9.5) 500 (4.1) 300 (2.5) 1080 (8.9) Urine (mL/kg/hr) 25 (0) 0 (0) 175 (0.1) Drains 20 Other 2540 1550 Blood 150 Total Output 2565 1720 195 Net -1405 -1220 +105 +1080 Microbiology and Radiology Microbiology Results (last 10 days) Procedure Component Value - Date/Time Tissue / Bone Culture - Tissue, Back, Lower [[id number]] Collected: 04/29/201914 Lab Status: Preliminary result Specimen: Tissue from Back, Lower Updated: 05/01/20 0704 Tissue Culture No growth at 2 days Gram Stain Rare (1+) WBCs seen No organisms seen AFB Culture - Tissue, Back, Lower [[id number]] Collected: 04/29/201914 Lab Status: Preliminary result Specimen: Tissue from Back, Lower Updated: 04/30/20 1225 AFB Stain No acid fast bacilli seen on concentrated smear Wound Culture - Wound, Spine, Lumbar [[id number]] (Abnormal) Collected: 04/29/20 1843 Lab Status: Final result Specimen: Wound from Spine, Lumbar Updated: 05/01/20 0812 Wound Culture Rare Staphylococcus, coagulase negative Gram Stain No WBCs or organisms seen MRSA Screen, PCR (Inpatient) - Swab, Nares [[id number]] (Normal) Collected: 04/29/20 0150 Lab Status: Final result Specimen: Swab from Nares Updated: 04/29/20 0912 MRSA PCR Negative Narrative: MRSA Negative COVID PRE-OP / PRE-PROCEDURE SCREENING ORDER (NO ISOLATION) - Swab, Nasopharynx [[id number]] (Normal) Collected: 04/28/20 1505 Lab Status: Final result Specimen: Swab from Nasopharynx Updated: 04/28/20 1644 Narrative: The following orders were created for panel order COVID PRE-OP / PRE-PROCEDURE SCREENING ORDER (NO ISOLATION) - Swab, Nasopharynx. Procedure Abnormality Status --------- ------ Respiratory Panel PCR w/...[[id number]] Normal Final result Please view results for these tests on the individual orders. 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, CUPOLA CHARGER Swab in UTM/VTM, 3-4 HR TAT - Swab, Nasopharynx [[id number]] (Normal) Collected: 04/28/20 1505 Lab Status: Final [...] Not Detected Narrative: Fact sheet for providers: https://docs.Rack[employer]ivity/wp-content/uploads/RDB9458-1828-QL9.1-EUA-Provi kmr-Foeh-Oehfw-3.pdf Fact sheet for patients: https://docs.Rack[employer]ivity/wp-content/uploads/ZDL5460-3416-BL7.8-MOA-Buyvnf k-Sopj-Ffpaa-1.pdf Blood Culture - Blood, Wrist, Right [[id number]] Collected: 04/28/20 0701 Lab Status: Preliminary result Specimen: Blood from Wrist, Right Updated: 05/01/20 0800 Blood Culture No growth at 3 days Blood Culture - Blood, Arm, Right [[id number]] Collected: 04/28/20 0650 Lab Status: Preliminary result [...] regimen as necessary. Thanks, Germán Resendiz, PharmD, [facility] Splitter Machine Operator 05/01/2020 11:35 EDT * Cayetano Rodriguez MD - 05/01/2020 10:41 AM EDT [facility] Progress Note Date of Admission: 04/28/2020 Antibiotics: [...] or edema : Normal appearing genitalia without Adners catheter. MSK: decreased ROM of l spine [...] Units Date/Time FL C Arm During Surgery [[id number]] Collected: 04/29/202011 Updated: 04/30/20 190 Narrative: EXAMINATION: [...] Dyer. XR Spine Lumbar Flex & Ext [[id number]] Resulted: 04/30/20 1503 Updated: 04/30/20 1540 PROBLEM [...] He was seen at several ERs including [facility] given Keflex with some improvement. Now admitted with fevers chills leukocytosis MRI revealing lumbar spine discitis osteomyelitis and fluid seen on MRI and epidural space of L5-S1 but no overt neurologic deficits today. ?? Get old records from [facility], it appears no blood cultures were obtained [...] [facility] ready for discharge Cayetano [...] region 3. Acute renal failure on dialysis ([facility]) 4. Bandemia 5. Abscess in epidural space [...] from the original note were not included. [facility] Medicine Services PROGRESS NOTE Patient Name: Leoncio [...] 0907 04/30/20 0759 04/29/20 1746 04/29/20 0618 04/28/20 1924 WBC 10*3/mm3 7.58 9.44 -- 11.27* -- HEMOGLOBIN g/dL 5.5* 6.3* 7.4* 7.8* -- HEMATOCRIT % 17.2* 19.6* 23.0* 23.9* -- PLATELETS 10*3/mm3 269 292 -- 285 -- PROCALCITONIN ng/mL -- -- -- -- 4.48* Results from last 7 days Lab Units 05/01/20 0907 04/30/20 0759 04/29/20 1533 04/29/20 0618 04/28/20 1924 04/28/20 0016 [...] Date/Time Wound Culture - Wound, Spine, Lumbar [[id number]] (Abnormal) Collected: 04/29/20 1843 Lab Status: Final result Specimen: Wound from Spine, Lumbar Updated: 05/01/20 0812 Wound Culture Rare Staphylococcus, coagulase negative Gram Stain No WBCs or organisms seen Blood Culture - Blood, Arm, Right [[id number]] Collected: 04/28/20 0650 Lab Status: Preliminary result Specimen: Blood from Arm, Right Updated: 05/01/20 0800 Blood Culture No growth at 3 days Blood Culture - Blood, Wrist, Right [[id number]] Collected: 04/28/20 0701 Lab Status: Preliminary result Specimen: Blood from Wrist, Right Updated: 05/01/20 0800 Blood Culture No growth at 3 days Tissue / Bone Culture - Tissue, Back, Lower [[id number]] Collected: 04/29/201914 Lab Status: Preliminary result Specimen: Tissue from Back, Lower Updated: 05/01/20 0704 Tissue Culture No growth at 2 days Gram Stain Rare (1+) WBCs seen No organisms seen AFB Culture - Tissue, Back, Lower [[id number]] Collected: 04/29/201914 Lab Status: Preliminary result Specimen: Tissue from Back, Lower Updated: 04/30/20 1225 AFB Stain No acid fast bacilli seen on concentrated smear MRSA Screen, PCR (Inpatient) - Swab, Nares [[id number]] (Normal) Collected: 04/29/20 0150 Lab Status: Final result Specimen: Swab from Nares Updated: 04/29/20 0912 MRSA PCR Negative Narrative: MRSA Negative COVID PRE-OP / PRE-PROCEDURE SCREENING ORDER (NO ISOLATION) - Swab, Nasopharynx [[id number]] (Normal) Collected: 04/28/20 1505 Lab Status: Final result Specimen: Swab from Nasopharynx Updated: 04/28/20 1644 Narrative: The following orders were created for panel order COVID PRE-OP / PRE-PROCEDURE SCREENING ORDER (NO ISOLATION) - Swab, Nasopharynx. Procedure Abnormality Status --------- ------ Respiratory Panel PCR w/...[[id number]] Normal Final result Please view results for these tests on the individual orders. 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, CUPOLA CHARGER Swab in UTM/VTM, 3-4 HR TAT - Swab, Nasopharynx [[id number]] (Normal) Collected: 04/28/20 1505 Lab Status: Final [...] Not Detected Narrative: Fact sheet for providers: https://docs.Rack[employer]ivity/wp-content/uploads/YAF3530-8320-BF2.1-EUTamy-Chantelli vrv-Ofhq-Eqlfx-3.pdf Fact sheet for patients: https://docs.Rack[employer]ivity/wp-content/uploads/NPB2570-9974-BH3.5-ROI-Mppcxz d-Gbip-Rshqw-1.pdf Imaging Results (Last 24 Hours) Procedure Component Value Units Date/Time FL C Arm During Surgery [[id number]] Collected: 04/29/202011 Updated: 04/30/20 1900 Narrative: EXAMINATION: [...] Dyer. XR Spine Lumbar Flex & Ext [[id number]] Resulted: 04/30/20 1503 Updated: 04/30/20 1540 I [...] (275 lb) Documented at 04/27/2020 2355 04/29 0701 - 04/30 0700 In: 500 [P.O.:500] Out: [...] from the original note were not included. [facility] Medicine Services PROGRESS NOTE Patient Name: Leoncio [...] last 7 days Lab Units 04/30/20 07504/29/20 1533 04/29/2061704/28/20192304/28/20 0016 SODIUM mmol/L 131* 132* 134* -- [...] Date/Time AFB Culture - Tissue, Back, Lower [[id number]] Collected: 04/29/201914 Lab Status: Preliminary result Specimen: Tissue from Back, Lower Updated: 04/30/20 1225 AFB Stain No acid fast bacilli seen on concentrated smear Blood Culture - Blood, Arm, Right [[id number]] Collected: 04/28/20 0650 Lab Status: Preliminary result Specimen: Blood from Arm, Right Updated: 04/30/20 0800 Blood Culture No growth at 2 days Blood Culture - Blood, Wrist, Right [[id number]] Collected: 04/28/20 0701 Lab Status: Preliminary result Specimen: Blood from Wrist, Right Updated: 04/30/20 0800 Blood Culture No growth at 2 days Wound Culture - Wound, Spine, Lumbar [[id number]] Collected: 04/29/20 1843 Lab Status: Preliminary result Specimen: Wound from Spine, Lumbar Updated: 04/30/20 0704 Wound Culture No growth at less than 24 hours Gram Stain No WBCs or organisms seen Tissue / Bone Culture - Tissue, Back, Lower [[id number]] Collected: 04/29/201914 Lab Status: Preliminary result Specimen: Tissue from Back, Lower Updated: 04/30/20 0703 Tissue Culture No growth at less than 24 hours Gram Stain Rare (1+) WBCs seen No organisms seen MRSA Screen, PCR (Inpatient) - Swab, Nares [[id number]] (Normal) Collected: 04/29/20 0150 Lab Status: Final result Specimen: Swab from Nares Updated: 04/29/20 0912 MRSA PCR Negative Narrative: MRSA Negative COVID PRE-OP / PRE-PROCEDURE SCREENING ORDER (NO ISOLATION) - Swab, Nasopharynx [[id number]] (Normal) Collected: 04/28/20 1505 Lab Status: Final result Specimen: Swab from Nasopharynx Updated: 04/28/20 1644 Narrative: The following orders were created for panel order COVID PRE-OP / PRE-PROCEDURE SCREENING ORDER (NO ISOLATION) - Swab, Nasopharynx. Procedure Abnormality Status --------- ------ Respiratory Panel PCR w/...[[id number]] Normal Final result Please view results for these tests on the individual orders. 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, CUPOLA CHARGER Swab in UTM/VTM, 3-4 HR TAT - Swab, Nasopharynx [[id number]] (Normal) Collected: 04/28/20 1505 Lab Status: Final [...] Not Detected Narrative: Fact sheet for providers: https://docs.[employer]ack[employer]/wp-content/uploads/ISH7830-1281-XU6.1-EUA-Provi oyx-Zrks-Ajjoz-3.pdf Fact sheet for patients: https://docs.Rack[employer]/wp-content/uploads/AVD7170-6222-ZV4.9-UBX-Hgboms c-Adwl-Unfrd-1.pdf Imaging Results (Last 24 Hours) Procedure Component Value Units Date/Time FL C Arm During Surgery [[id number]] Collected: 04/29/202011 Updated: 04/29/202099 Narrative: EXAMINATION: FL [...] 50 mL/hr, Last Rate: 600 mL/hr (04/29/20 192) sodium chloride, 9 mL/hr, Last Rate: 9 [...] Rodriguez MD - 04/30/2020 9:12 AM EDT [facility] Progress Note Date of Admission: 04/28/2020 Antibiotics: [...] Units Date/Time FL C Arm During Surgery [[id number]] Collected: 04/29/202011 Updated: 04/29/20 2100 Narrative: EXAMINATION: FL C ARM DURING SURGERY [...] : 04/29/2020 MRI Lumbar Spine Without Contrast [[id number]] Collected: 04/28/20 1058 Updated: 04/29/20 0923 Narrative: [...] He was seen at several ERs including [facility] given Keflex with some improvement. Now admitted with fevers chills leukocytosis MRI revealing lumbar spine discitis osteomyelitis and fluid seen on MRI and epidural space of L5-S1 but no overt neurologic deficits today. ?? 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 Bandemia 5. Abscess in epidural space [...] - 04/29/2020 4:46 PM EDT Talked with [id number] regarding surgical decision making would recommend L5 lamina foraminotomies-laminectomy and exploration of epidural mass-disc herniation-abscess? Explain complexities ofhis care risk of medical complications given the gentleman's underlying medical comorbidities She is in agreement * Cayetano Rodriguez MD - 04/29/2020 1:20 PM EDT [facility] Progress Note Date of Admission: 04/28/2020 Antibiotics: [...] last 7 days Lab Units 04/29/20 0618 SODIUM mmol/L 134* POTASSIUM mmol/L 4.1 CHLORIDE [...] Units Date/Time MRI Lumbar Spine Without Contrast [[id number]] Collected: 04/28/20 1058 Updated: 04/29/20 0923 Narrative: [...] ? ASSESSMENT: Patient is a 45-year-old with Kim with end-stage liver disease underwent transplant on immunosuppressive therapy on home hemodialysis 5 days/week with end-stage renal disease recent right chest walldialysis cath removed with some erythema this was followed by increasing lower back pain which progressed to fevers chills difficulty with ambulation. He was seen at several ERs including [facility] given Keflex with some improvement. Now admitted with fevers chills leukocytosis MRI revealing lumbar spine discitis osteomyelitis and fluid seen on MRI and epidural space of L5-S1 but no overt neurologic deficits today. ?? Get old records from [facility], it appears no blood cultures were obtained [...] (CMS/HCC) Hyponatremia Discitis Epidural abscess Leukocytosis Temp: [97.9 [...] risk for complicated surgical outcome * Germán Resendiz, [facility] - 04/29/2020 11:22 AM EDT Pharmacy Consult-Vancomycin Dosing Leoncio Rollins is a 45 y.o. male receiving vancomycin therapy. Indication: sepsis secondary to spine discitis osteomyelitis Consulting Provider: Keara Berg DO ID Consult: Cayetano Rodriguez MD Goal trough: 15-20mcg/ml Current Antimicrobial Therapy Anti-Infectives (From admission, onward) Ordered Dose/Rate Route Frequency Start Stop 04/29/20 0435 piperacillin-tazobactam (ZOSYN) 3.375 g in iso-osmotic dextrose 50 ml (premix) Ordering Provider: Cayetano Rodriguez MD 3.375 g over 4 Hours Intravenous Every 12 Hours Scheduled 04/29/20 1300 05/06/20 1359 04/28/20 1131 entecavir (BARACLUDE) tablet 0.5 mg (PATIENT SUPPLIED MED) Ordering Provider: Keara Berg DO 0.5 mg Oral Weekly 04/28/20212904/28/20 1915 vancomycin (dosing per levels) Ordering Provider: [...] Renal Replacement: HD 5 days a week 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 Inpatient scheduled for TRSa. Ht - 170.2 cm (67.01 ) Wt - 122 kg (268 lb 1.6 oz) Estimated Creatinine Clearance: 11 mL/min (A) (by C-G formula based on SCr of 10.55 mg/dL (H)). Intake & Output (last 3 days) 04/26 07 - 04/27 0704/27 - 04/28 0700 04/28 0701 - 04/29 0700 04/29 07 - 04/30 0700 I.V. (mL/kg) 310 (2.5) IV Piggyback 850 Total Intake(mL/kg) 1160 (9.5) Urine (mL/kg/hr) 25 (0) Other 2540 Total Output 2565 Net -1405 Microbiology and Radiology Microbiology Results (last 10 days) Procedure Component Value - Date/Time MRSA Screen, PCR (Inpatient) - Swab, Nares [[id number]] (Normal) Collected: 04/29/20 0150 Lab Status: Final result Specimen: Swab from Nares Updated: 04/29/20 09 MRSA PCR Negative Narrative: MRSA Negative COVID PRE-OP / PRE-PROCEDURE SCREENING ORDER (NO ISOLATION) - Swab, Nasopharynx [[id number]] (Normal) Collected: 04/28/20 1505 Lab Status: Final result Specimen: Swab from Nasopharynx Updated: 04/28/20 1644 Narrative: The following orders were created for panel order COVID PRE-OP / PRE-PROCEDURE SCREENING ORDER (NO ISOLATION) - Swab, Nasopharynx. Procedure Abnormality Status --------- ------ Respiratory Panel PCR w/...[[id number]] Normal Final result Please view results for these tests on the individual orders. 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, CUPOLA CHARGER Swab in UTM/VTM, 3-4 HR TAT - Swab, Nasopharynx [[id number]] (Normal) Collected: 04/28/20 1505 Lab Status: Final [...] Not Detected Narrative: Fact sheet for providers: https://docs.Rack[employer]ivity/wp-content/uploads/SBE7352-6807-PO6.1-EUA-Provi zeb-Qdmj-Fbnde-3.pdf Fact sheet for patients: https://docs.Rack[employer]/wp-content/uploads/TMT2934-2434-QH2.6-QRK-Dtxyqu f-Vyig-Phocd-1.pdf Blood Culture - Blood, Wrist, Right [[id number]] Collected: 04/28/20 0701 Lab Status: Preliminary result Specimen: Blood from Wrist, Right Updated: 04/29/20 0800 Blood Culture No growth at 24 hours Blood Culture - Blood, Arm, Right [[id number]] Collected: 04/28/20 0650 Lab Status: Preliminary result [...] adjust regimen as necessary. Thanks, Germán Resendiz, Wilbert, [facility] [employer] Splitter Machine Operator 04/29/2020 10:56 EDT * Ginger Murphy RN - 04/29/2020 11:13 AM EDT Discharge Planning Assessment [facility] Patient Name: Leoncio Rollins Today's Date: 04/29/2020 [...] w/ his in a one story in [facility]. PRECIPITATE WASHER he was independent w/ ADLs and mobility. [...] from the original note were not included. [facility] Medicine Services PROGRESS NOTE Patient Name: Leoncio [...] Date/Time Blood Culture - Blood, Arm, Right [[id number]] Collected: 04/28/20 0650 Lab Status: Preliminary result Specimen: Blood from Arm, Right Updated: 04/29/20 0800 Blood Culture No growth at 24 hours Blood Culture - Blood, Wrist, Right [[id number]] Collected: 04/28/20 0701 Lab Status: Preliminary result Specimen: Blood from Wrist, Right Updated: 04/29/20 0800 Blood Culture No growth at 24 hours COVID PRE-OP / PRE-PROCEDURE SCREENING ORDER (NO ISOLATION) - Swab, Nasopharynx [[id number]] (Normal) Collected: 04/28/20 1505 Lab Status: Final result Specimen: Swab from Nasopharynx Updated: 04/28/20 1644 Narrative: The following orders were created for panel order COVID PRE-OP / PRE-PROCEDURE SCREENING ORDER (NO ISOLATION) - Swab, Nasopharynx. Procedure Abnormality Status --------- ------ Respiratory Panel PCR w/...[[id number]] Normal Final result Please view results for these tests on the individual orders. 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, CUPOLA CHARGER Swab in UTM/VTM, 3-4 HR TAT - Swab, Nasopharynx [[id number]] (Normal) Collected: 04/28/20 1505 Lab Status: Final [...] Not Detected Narrative: Fact sheet for providers: https://docs.Rack[employer]/wp-content/uploads/ZEZ2426-6614-UE5.1-Kuldip kff-Gyuz-Pmklj-3.pdf Fact sheet for patients: https://docs.Rack[employer]/wp-content/uploads/RAV0324-6778-LJ6.5-UBR-Enndfs y-Xuqj-Yftil-1.pdf Imaging Results (Last 24 Hours) Procedure Component Value Units Date/Time MRI Lumbar Spine Without Contrast [[id number]] Collected: 04/28/20 1058 Updated: 04/28/20 1242 Narrative: [...] time he was given pain medications on [facility] was in February 2020. Per his he has been taking medications for pain and has been seen in the ER 5 times in the last month for his pain. She is unable to tell me what he was being prescribed and if he needs that is been is receivingopioid pain medications. They have not gone any medications from [place] and all prescriptions are obtained in [place] so should be on the [facility]. She also notes that they sometimes are [...] onward) Ordered Dose/Rate Route Frequency Start Stop 04/28/20 1906 piperacillin-tazobactam (ZOSYN) 3.375 g in iso-osmotic dextrose 50 ml (premix) Ordering Provider: Cayetano Rodriguez MD 3.375 g over 4 Hours Intravenous Every 12 Hours 04/29/20 0200 05/06/20 0159 04/28/20 1906 piperacillin-tazobactam (ZOSYN) 3.375 g in iso-osmotic dextrose 50 ml (premix) Ordering Provider: Cayetano Rodriguez MD 3.375 g over 30 Minutes Intravenous Once 04/28/20199904/28/20 1130 Pharmacy to dose vancomycin Ordering Provider: Keara Berg, DO Does not apply Continuous PRN 04/28/20 [...] SCREENING ORDER (NO ISOLATION) - Swab, Nasopharynx [[id number]] (Normal) Collected: 04/28/20 1505 Lab Status: Final result Specimen: Swab from Nasopharynx Updated: 04/28/20 1644 Narrative: The following orders were created for panel order COVID PRE-OP / PRE-PROCEDURE SCREENING ORDER (NO ISOLATION) - Swab, Nasopharynx. Procedure Abnormality Status --------- ------ Respiratory Panel PCR w/...[[id number]] Normal Final result Please view results for these tests on the individual orders. 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, CUPOLA CHARGER Swab in UTM/SCM, 3-4 HR TAT - Swab, Nasopharynx [[id number]] (Normal) Collected: 04/28/20 1505 Lab Status: Final [...] Not Detected Narrative: Fact sheet for providers: https://docs.[employer]/wp-content/uploads/EAB1621-0776-MC8.1-EUA-Provi wes-Xbui-Tgyuv-3.pdf Fact sheet for patients: https://docs.[employer]/wp-content/uploads/QYM3916-9557-UL4.5-JCB-Zxiuae o-Bhax-Ppwyl-1.pdf Evaluation of Level Assessment/Plan: 1. Pharmacy to dose vancomycin for sepsis with a goal trough of 15-20 mcg/mL. 2. Patient received a loading dose of vancomycin 2500mg in ED @ 1026 on 04/28 and then underwent hemodialysis later that evening. 3. Vancomycin random ordered for 916 AM. To assess clearance. 4. Monitor renal function, cultures and sensitivities, and clinical status, and adjust regimen as necessary. Pharmacy will continue to follow. ThanksAdam PharmD 04/28/2020 19:10 EDT documented in this encounter H&P Notes * Keara Berg DO - 04/28/2020 11:52 AM EDT Images from the original note were not included. [facility] Medicine Services HISTORY AND PHYSICAL Patient [...] of 102 over the weekend. States at [place] ER they gave him a prescription for [...] Units Date/Time MRI Lumbar Spine Without Contrast [[id number]] Collected: 04/28/20 1058 Updated: 04/28/20 1111 Narrative: [...] roots bilaterally. CT Abdomen Pelvis Without Contrast [[id number]] Collected: 04/28/20 0641 Updated: 04/28/20 0644 Narrative: INDICATION: Post liver transplant with generalized [...] AM Workstation Name: DMITRI [facility] CT Chest Without Contrast [[id number]] Collected: 04/28/2034 Updated: 04/28/2036 Narrative: INDICATION: Liver [...] AM Workstation Name: DMIT[facility] CT Lumbar Spine Without Contrast [[id number]] Collected: 04/28/20627 Updated: 04/28/20629 Narrative: INDICATION: Pain [...] MD Signed: 04/28/2020 6:28 AM Workstation Name: ADRYAN- [facility] XR Chest 1 View [[id number]] Collected: 04/28/20 0158 Updated: 04/28/20 020 Narrative: CR Chest 1 Vw INDICATION: Weakness and dizziness on arrival COMPARISON: None available. FINDINGS: Single portable AP view(s) of the chest. The heart and mediastinal contours are normal. The lungs are clear. No pneumothorax or pleural effusion. Impression: No acute cardiopulmonary findings. Signer Name: Gabino Herr MD Signed: 04/28/2020 1:58 AM Workstation Name: SONIDOLFAMicKIR-T[facility]ON [facility] Assessment/Plan Assessment & Plan Active Hospital Problems [...] PM EDTAssociated Order(s): IP CONSULT TO GASTROENTEROLOGY [facility] [place] Referring Provider: Keara Berg DO PCP: Edgar Fournier MD Reason for Consultation: History of liver transplant Chief complaint: Back pain History of present illness: eLoncio Rollins is a 45 y.o. male who is admitted with 2-week history of back pain. He is found to have lumbar discitis and epidural abscess. Patient had liver transplant about 2-1/2 years ago at [facility]. He has never had problems with rejection. He is maintained on CellCept to 150 mg twice daily, and cyclosporine 50 mg twice daily. Allergies: Patient has no known allergies. Scheduled Meds: aspirin, 81 mg, Oral, Daily buprenorphine, 0.3 mg, Injection, Once carBAMazepine, 200 mg, Oral, Nightly [MAR Hold] cycloSPORINE modified, 50 mg, Oral, BID [MAR Hold] docusate sodium, 100 mg, Oral, BID [Oct] entecavir, 0.5 mg, Oral, Weekly [Oct] epoetin giancarlo/giancarlo-epbx, 20,000 Units, Subcutaneous, 3x Weekly famotidine, 10 mg, Oral, Daily gabapentin, 100 mg, Oral, Nightly hydrALAZINE, 100 mg, Oral, TID [Oct] insulin lispro, 0-9 Units, Subcutaneous, TID AC [...] 9 mL/hr, Last Rate: 9 mL/hr (04/29/20 160) PRN Meds: ??? [Oct] acetaminophen OR [Oct] [...] Vomiting. ??? vitamin D (ERGOCALCIFEROL) 1.25 MG (50471 UT) capsule capsule Take 50,000 Units by [...] will attempt to discuss with the patient's business writer at [employer] tomorrow. I discussed the patient's findings and my recommendations with patient Dewey Vidal MD 04/29/20 19:41 EDT * Yinka Garnica MD [...] been bedridden. He has been seen in [place] ED multiple times where they prescribed Keflex. [...] with worsening back pain fevers leukocytosisseen in [facility] emergency room with diagnosis of epidural abscess. Nephrology is consulted for management of ESRD. He has been on HD since Sep. He is on Home hemo couldn't provide me much info due toAMS. He did his outpatient driver supervisor is Dr Cheney. Unable to tell exactly [...] No results found for: URICACID Assessment/Plan Sepsis (CMS/HCC) KIM (nonalcoholic steatohepatitis) History of liver transplant (CMS/HCC) Immunosuppression (CMS/HCC) Type 2 diabetes mellitus (CMS/HCC) Altered mental state ESRD (end stage renal disease) ([facility]) Hyponatremia Discitis Epidural abscess Leukocytosis Assessment: (ESRD: on home hemo 5x week. Missed HD for few days Anemia: MINERVA on HD days Met acidosis: management with [...] CONSULT TO INFECTIOUS DISEASES Leoncio Rollins 1975 [id number] Date of Consult: 04/28/2020 Date of Admission: [...] with worsening back pain fevers leukocytosisseen in [facility] emergency room with diagnosis of epidural abscess [...] 650 mg 650 mg Oral Q4H PRN Ammon Bergey, DO Or ??? acetaminophen (TYLENOL) 160 MG/5ML solution 650 mg 650 mg Oral Q4H PRN Keara Berg, DO Or ??? acetaminophen (TYLENOL) suppository 650 mg 650 mg Rectal Q4H PRN Ammon Bergey, DO ??? calcium carbonate (TUMS) chewable tablet 500 mg (200 mg elemental) 1 tablet Oral BID PRN Ammon Bergey, DO ??? cycloSPORINE modified (NEORAL) capsule 50 mg 50 mg Oral BID Keara Berg, DO ??? dextrose (D50W) 25 g/ 50mL Intravenous Solution 25 g 25 g Intravenous Q15 Min PRN Ammon Bergey, DO ??? dextrose (GLUTOSE) oral gel 15 g 15 g Oral Q15 Min PRN Ammon Bergey, DO ??? docusate sodium (COLACE) capsule 100 [...] dextrose IVPB 2.25 g (premix) 2.25 g [id number] Keara Berg, DO ??? sodium chloride 0.9 [...] Day. ??? vitamin D (ERGOCALCIFEROL) 1.25 MG (00864 UT) capsule capsule Take 50,000 Units by [...] Units Date/Time MRI Lumbar Spine Without Contrast [[id number]] Collected: 04/28/20 1058 Updated: 04/28/20 1242 Narrative: [...] E: 04/28/2020 CT Abdomen Pelvis Without Contrast [[id number]] Collected: 04/28/20640 Updated: 04/28/20643 Narrative: INDICATION: Post [...] AM Workstation Name: [facility] CT Chest Without Contrast [[id number]] Collected: 04/28/2034 Updated: 04/28/2036 Narrative: INDICATION: Liver [...] AM Workstation Name: DMITRI [facility] CT Lumbar Spine Without Contrast [[id number]] Collected: 04/28/20627 Updated: 04/28/20629 Narrative: INDICATION: Pain [...] MD Signed: 04/28/2020 6:28 AM Workstation Name: SUEIMiguel-PC [facility] XR Chest 1 View [[id number]] Collected: 04/28/20157 Updated: 04/28/20199 Narrative: CR Chest 1 Vw INDICATION: Weakness and dizziness on arrival COMPARISON: None available. FINDINGS: Single portable AP view(s) of the chest. The heart and mediastinal contours are normal. The lungs are clear. No pneumothorax or pleural effusion. Impression: No acute cardiopulmonary findings. Signer Name: Gabino Herr MD Signed: 04/28/2020 1:58 AM Workstation Name: RSLFALKIR-PC [facility] PROBLEM LIST: Sepsis Lumbar spine discitis osteomyelitis [...] He was seen at several ERs including [facility] given Keflex with some improvement. Now admitted with fevers chills leukocytosis MRI revealing lumbar spine discitis osteomyelitis and fluid seen on MRI and epidural space of L5-S1 but no overt neurologic deficits today. Get old records from [facility] see if they did any blood cultures [...] Flowsheet Documentation Taken 05/12/2020 1611 by Momo Aragon, PT Progress: no change Plan of Care [...] of Care Review Recent Flowsheet Documentation Taken 05/08/2020910 by Eneida Oro PT Progress: no change [...] Summary: Pt refusing OOB mobility due to 05/23 pain and fatigue, despite max education and encouragement. RN notified. Pt agreeable to exercise. Reviewed spinal precautions and logroll technique. Will continue to progress strength and mobility as able. * Sujata Boogie RN - 05/07/2020 6:52 AM EDT Patient alert and oriented this shift, but forgetfull at times. BP and HR increased during shift. second shift supervisor FINANCIAL BUSINESS ANALYST notified and new orders given. Other VSS. [...] RN Infection Prevention: cohorting utilized Taken 05/05/2020 2200 by Ronald Aguilar RN Infection Prevention: cohorting utilized Taken 05/05/20201999 by Ronald Aguilar RN Infection Prevention: cohorting utilized Problem: Pain Acute Goal: Optimal Pain Control Outcome: Ongoing, Progressing Intervention: Develop Pain Management Plan Recent Flowsheet Documentation Taken 05/05/2020 220 by Ronald Aguilar RN Pain Management Interventions: [...] Review Outcome: Ongoing, Progressing Flowsheets (Taken 05/05/2020 1851 by Albertina Marie RN) Plan of Care Reviewed With: patient Goal: Patient-Specific Goal (Individualized) Outcome: Ongoing, Progressing Goal: Absence of Hospital-Acquired Illness or Injury Outcome: Ongoing, Progressing Intervention: Identify and Manage Fall Risk Recent Flowsheet Documentation Taken 05/06/2020 0400 by Ronald Augilar RN Safety Promotion/Fall Prevention: activity supervised Taken [...] compression devices off Taken 05/06/2020 0000 by Ronald Aguilar RN VTE Prevention/Management: sequential compression devices off Taken 05/05/2020 2200 by Ronald Aguilar RN VTE Prevention/Management: sequential [...] RN Positioning/Transfer Devices: pillows in use Taken 05/05/20202199 by Ronald Aguilar RN Positioning/Transfer Devices: pillows [...] Pressure Reduction Devices: pressure-redistributing mattress utilized Taken 05/05/20202199 by Ronald Aguilar RN Body Position: supine [...] frequent weight shift encouraged Head of Bed ([facility]): [facility] elevated Pressure Reduction Devices: pressure-redistributing mattress utilized Skin Protection: adhesive use limited Taken 05/06/2020 0200 by Ronald Aguilar RN Pressure Reduction Techniques: frequent weight shift encouraged Head of Bed ([facility]): [facility] elevated Pressure Reduction Devices: pressure-redistributing mattress utilized Skin Protection: adhesive use limited incontinence pads utilized Taken 05/06/2020 0000 by Ronald Aguilar RN Pressure Reduction Techniques: frequent weight shift encouraged Head of Bed ([facility]): [facility] elevated Pressure Reduction Devices: pressure-redistributing mattress utilized Skin Protection: adhesive use limited incontinence pads utilized Taken 05/05/2020 2200 by Ronald Aguilar RN Pressure Reduction Techniques: frequent weight shift encouraged Head of Bed ([facility]): [facility] elevated Pressure Reduction Devices: pressure-redistributing mattress utilized Skin Protection: adhesive use limited incontinence pads utilized Taken 05/05/2020 2000 by Ronald Aguilar RN Pressure Reduction Techniques: frequent weight shift encouraged Head of Bed ([facility]): [facility] elevated Pressure Reduction Devices: pressure-redistributing mattress utilized [...] bed Taken 05/05/2020 0830 by Albertina Marie, RN Safety Promotion/Fall Prevention: [...] questions encouraged Taken 05/05/2020 1030 by Albertina Marie RN Trust Relationship/Rapport: care explained Taken 05/05/2020 0830 by Albertina Marie RN Trust Relationship/Rapport: care explained choices provided [...] Albertina Marie RN Medication Review/Management: medications reviewed Intervention: Promote [...] in use Taken 05/05/2020 1400 by Albertina Marie RN Positioning/Transfer Devices: pillows in use Taken 05/05/2020 1240 by Albertina Marie RN Positioning/Transfer Devices: pillows in use Taken 05/05/2020 1030 by Albertina Marie RN Positioning/Transfer Devices: pillows in use Taken 05/05/2020 0830 by Albertina Marie RN Positioning/Transfer Devices: pillows in use Problem: [...] Documentation Taken 05/05/2020 0400 by Ronald Aguilar, rubber belt splicer Review/Management: medications reviewed Taken 05/05/2020 0200 by Ronald Aguilar, rubber belt splicer Review/Management: medications reviewed Taken 05/04/2020 2356 by Ronald Aguilar, rubber belt splicer Review/Management: medications reviewed Taken 05/04/2020 220 by Ronald Aguilar, rubber belt splicer Review/Management: medications reviewed Taken 05/04/20201999 by Ronald Aguilar, rubber belt splicer Review/Management: medications reviewed Problem: Hemodynamic Instability (Hemodialysis) Goal: Vital Signs Remain in Desired Range Outcome: Ongoing, Progressing Intervention: Optimize Blood Flow Recent Flowsheet Documentation Taken 05/04/20201999 by Ronald Aguilar RN Bleeding Precautions: blood pressure closely monitored Bleeding Management: dressing monitored Problem: Infection (Hemodialysis) Goal: Absence of Infection Signs and Symptoms Outcome: Ongoing, Progressing Intervention: Prevent or Manage Infection Recent Flowsheet Documentation Taken 05/05/2020 0400 [...] Fall Risk Recent Flowsheet Documentation Taken 05/05/2020 0400 by [...] Skin Injury Recent Flowsheet Documentation Taken 05/05/2020 040 by Ronald Aguilar RN Body Position: supine Taken 05/05/2020 020 by Ronald Aguilar RN Body Position: supine Taken 05/04/20202355 by Ronald Aguilar RN Body Position: supine Taken 05/04/20202199 by Ronald Aguilar RN Body Position: supine Taken 05/04/20201999 by Ronald Aguilar RN Body Position: supine Intervention: Prevent and Manage VTE (venous thromboembolism) Risk Recent Flowsheet Documentation Taken 05/05/2020399 by Ronald Aguilar RN VTE Prevention/Management: sequential compression devices on Taken 05/05/2020199 by Ronald Aguilar RN VTE Prevention/Management: sequential compression devices on Taken 05/04/20202355 by Ronald Aguilar RN VTE Prevention/Management: sequential compression devices on Taken 05/04/20202199 by Ronald Aguilar RN VTE Prevention/Management: sequential compression devices on Taken 05/04/20201999 by Ronald Aguilar RN VTE Prevention/Management: sequential compression devices on Intervention: Prevent Infection Recent Flowsheet Documentation Taken 05/05/2020399 by [...] Injury Risk Recent Flowsheet Documentation Taken 05/05/2020 040 by Ronald Aguilar RN Medication Review/Management: medications reviewed Taken 05/05/2020199 by Ronald Aguilar RN Medication Review/Management: medications reviewed Taken 05/04/20202355 by Ronald Aguilar RN Medication Review/Management: medications reviewed Taken 05/04/20202199 by Ronald Aguilar RN Medication Review/Management: medications reviewed Taken 05/04/20201999 by Ronald Aguilar RN Medication Review/Management: medications reviewed Intervention: Promote Injury-Free Environment Recent Flowsheet Documentation Taken 05/05/2020 040 by Ronald Aguilar RN Safety Promotion/Fall Prevention: activity supervised Taken 05/05/2020 020 by Ronald Aguilar RN Safety Promotion/Fall Prevention: [...] Functional Status Recent Flowsheet Documentation Taken 05/05/2020 040 by Ronald Aguilar RN Positioning/Transfer Devices: pillows in use Taken 05/05/2020199 by Ronald Agiular RN Positioning/Transfer Devices: pillows in use Taken [...] Reduction Devices: pressure-redistributing mattress utilized Taken 05/05/2020 020 by Ronald Aguilar RN Body Position: supine [...] frequent weight shift encouraged Head of Bed ([facility]): [facility] elevated Pressure Reduction Devices: pressure-redistributing mattress utilized Skin Protection: adhesive use limited incontinence pads utilized Taken 05/05/2020 0200 by Ronald Aguilar RN Pressure Reduction Techniques: frequent weight shift encouraged Head of Bed ([facility]): [facility] elevated Pressure Reduction Devices: pressure-redistributing mattress utilized Skin Protection: adhesive use limited Taken 05/04/2020 2356 by Ronald Aguilar RN Pressure Reduction Techniques: frequent weight shift encouraged Head of Bed ([facility]): [facility] elevated Pressure Reduction Devices: pressure-redistributing mattress utilized Skin Protection: adhesive use limited Taken 05/04/2020 2200 by Ronald Aguilar RN Pressure Reduction Techniques: frequent weight shift encouraged Head of Bed ([facility]): [facility] elevated Pressure Reduction Devices: pressure-redistributing mattress utilized Skin Protection: adhesive use limited Taken 05/04/2020 2000 by Ronald Aguilar RN Pressure Reduction Techniques: frequent weight shift encouraged Head of Bed ([facility]): [facility] elevated Pressure Reduction Devices: pressure-redistributing mattress utilized Skin Protection: adhesive use limited Goal Outcome Evaluation: Plan of Care Reviewed With: patient Progress: no change * Deisy Jones RN - 05/05/2020 3:29 AM EDT Patient went to Radiology for flexion/extension x-ray. Patient was unable to stand with the assist of 3. The Manager Mobile said he could not get films if [...] CDI. BP and HR elevated during shift, fast food shift lead CUPOLA CHARGER notified and new orders given. PRN tylenol, percocet and dilaudid given for pain. Tarry BM during shift, fast food shift lead CUPOLA CHARGER notified and orders for STAT CBC/Type&screen given. [...] to monitor. Taken 04/29/2020 1834 by Bridgett Hernandez, JANA Plan of Care Reviewed With: patient * [...] Documentation Taken 04/28/2020 1530 by Judi Truong RN Medication Review/Management: medications reviewed HD today documented in [...] Garnica MD Assistants: Tim Coppola my physician's freezer assistant was present and personally scrubbed the [...] this chart in the absence of a mortgage loan processor. ECG 12 Lead Final Result Test Reason [...] ([id number]) on 04/28/2020 8:01:00 AM Referred By: LEXA Confirmed By:KYM GARCIA MD RADIOLOGY: Non-plain film [...] MD Signed: 04/28/2020 6:41 AM Workstation Name: [employer] [facility] CT Chest Without Contrast Final Result [...] MD Signed: 04/28/2020 6:34 AM Workstation Name: [employer] [facility] CT Lumbar Spine Without Contrast Final [...] MD Signed: 04/28/2020 6:28 AM Workstation Name: [facility] XR Chest 1 View Final Result No acute cardiopulmonary findings. Signer Name: Gabino Herr MD Signed: 04/28/2020 1:58 AM Workstation Name: [facility] MRI Lumbar Spine With & Without [...] Procedure: ESOPHAGOGASTRODUODENOSCOPY; Surgeon: Dewey Betancourt MD; Location: [facility]; Service: Gastroenterology; Laterality: N/A; ??? LUMBAR LAMINECTOMY DISCECTOMY DECOMPRESSION N/A 04/29/2020 Procedure: LUMBAR LAMINECTOMY DISCECTOMY DECOMPRESSION POSTERIOR L4-5; Surgeon: Yinka Garnica MD; Location: [facility] OR; Service: Neurosurgery; Laterality: N/A; General Information Row Name 05/12/20 1648 05/12/20 1554 Physical Therapy Time and Intention Document Type progress note/recertification -[place] therapy note (daily note) -[place] Mode of Treatment -- individual therapy;physical therapy -[place] Row Name 05/12/20 1611 05/12/20 1554 General Information Patient Profile Reviewed -- Talks alot with multiple reasond not to attempt activities. -NY yes -NY Existing Precautions/Restrictions -- fall;spinal;other (see comments) anxiety -[place] Row Name 05/12/20 6154 Cognition Orientation Status (Cognition) oriented to;person -[place] Row Name 05/12/20 1554 Safety Issues, Functional Mobility Safety Issues Affecting Function (Mobility) insight into deficits/self-awareness;judgment;problem-solving;sequencing abilities -[place] Impairments Affecting Function (Mobility) balance;endurance/activity tolerance;motor control;pain;strength -[place] Comment, Safety Issues/Impairments (Mobility) gets very anxious -[place] User Dyer (r) = Recorded By, (t) = Taken By, (c) = Cosigned By Initials Name Provider Type [place] Momo Aragon PT Physical Therapist Mobility Row Name 05/12/20 1558 Bed Mobility Bed Mobility rolling right;rolling left;supine-sit;sit-supine -SC Rolling Left [place] (Bed Mobility) verbal cues;minimum assist (75% patient effort) -[place] Rolling Right [place] (Bed Mobility) verbal cues;minimum assist (75% patient effort) -[place] Scooting/Bridging Moore (Bed Mobility) maximum assist (25% patient effort);2 person assist;verbal cues -SC Supine-Sit [place] (Bed Mobility) 2 person assist;maximum assist (25% patient effort);verbal cues -SC Sit-Supine [place] (Bed Mobility) maximum assist (25% patient effort);2 person assist;verbal cues -SC Assistive Device (Bed Mobility) bed rails;draw sheet;head of bed elevated -[place] Comment (Bed Mobility) spent long time working on rolling to prepare for log rolling into sitting. required repeted cues for sequencing. PT assisting at trunk and at legs to lower them slowly. Patient crying in pain on sitting. -[place] Row Name 05/12/20 1558 Transfers Comment (Transfers) refused- dispite frequent attempts to sit forward -[place] Row Name 05/12/20 1558 Gait/Stairs (Locomotion) Comment (Gait/Stairs) refused to walk -[place] User Dyer (r) = Recorded By, (t) = Taken By, (c) = Cosigned By Initials Name Provider Type [place] Momo Aragon, PT Physical Therapist Obj/Interventions [facility] Name 05/12/20 1609 Balance Balance Interventions sitting -[place] Comment, Balance working on midline sitting with multiple cues to wt shifting onto R hip. Patient required Bilateral upper extremity support to sit on edge of bed . Required rest break and layed backonto tech support in sitting. At this point patient refused to do more PT and was layed back into bed -[place] User Dyer (r) = Recorded By, (t) = Taken By, (c) = Cosigned By Initials Name Provider Type [place] Momo Aragon, PT Physical Therapist Goals/Plan No documentation. Clinical Impression [facility] Name 05/12/20 1611 Pain Additional Documentation Pain Scale: FACES Pre/Post-Treatment (Group) -[facility] Name 05/12/20 1611 Pain Scale: Numbers Pre/Post-Treatment Pain Intervention(s) Repositioned -[facility] Name 05/12/20 1611 Pain Scale: FACES Pre/Post-Treatment Pain: FACES Scale, Pretreatment 2-->hurts little bit -[place] Posttreatment Pain Rating 10-->hurts worst -[place] Pain Location back -[facility] Name 05/12/20 1611 Plan of Care Review Plan of Care Reviewed With patient -[place] Progress no change -[place] Outcome Summary Patient continues to be limited in all mobility by anxiety and c/o back pain. He isdifficult to motivate and to stay on task. He is unrealistiic about his goals stating, I'm going to walk home tomorrow. -[place] Row Name 05/12/20 1611 Therapy Assessment/Plan (PT) Patient/Family Therapy Goals Statement (PT) go home -[place] Rehab Potential (PT) fair, will monitor progress closely -[place] Criteria for Skilled Interventions Met (PT) yes;skilled treatment is necessary -[place] Row Name 05/12/20 1611 Positioning and Restraints Pre-Treatment Position in bed -NY Post Treatment Position bed -NY In Bed supine;notified nsg;call light within reach;encouraged to call for assist -[place] User Dyer (r) = Recorded By, (t) = Taken By, (c) = Cosigned By Initials Name Provider Type [place] Momo Aragon PT Physical Therapist Outcome Measures [...] -SC To walk in hospital room? 1 -[place] AM-PAC 6 Clicks Score (PT) 10 -[place] Row Name 05/12/20 1646 05/12/20 1643 Functional Assessment Outcome Measure Options AM-PAC 6 Clicks Basic Mobility (PT) -[place] AM-PAC 6 Clicks Basic Mobility (PT)-[place] User Dyer (r) = Recorded By, (t) = Taken By, (c) = Cosigned By Initials Name Provider Type [place] Momo Aragon PT Physical Therapist Physical Therapy Education Title: PT OT SALON SUPERVISOR Therapies (In Progress) Topic: Physical Therapy (In Progress) Point: Mobility training (In Progress) Learning Progress Summary Patient Acceptance, E, NR by [place] at 05/12/2020 1643 Comment: reviewed benefits of [...] and logroll technique Acceptance, E, NR by [place] at 04/30/2020 1453 Comment: reviewed benefits of activity Family Acceptance, E,D, VU by MINE at 05/06/2020 1510 Comment: Educated on safe sequencing with bed mobility, ambulatory transfers, and gait. Reviewed HEP and spinal precautions. Point: Home exercise program (In Progress) Learning Progress Summary Patient Acceptance, E, NR by [place] at 05/12/2020 1643 Comment: reviewed benefits of [...] and logroll technique Acceptance, E, NR by [place] at 04/30/2020 1453 Comment: reviewed benefits of activity Family Acceptance, E,D, VU by MINE at 05/06/2020 1510 Comment: Educated on safe sequencing with bed mobility, ambulatory transfers, and gait. Reviewed HEP and spinal precautions. Point: Body mechanics (In Progress) Learning Progress Summary Patient Acceptance, E, NR by [place] at 05/12/2020 1643 Comment: reviewed benefits of activity Acceptance, E,D, NR by at 05/07/2020 0925 [...] and logroll technique Acceptance, E, NR by [place] at 04/30/2020 1453 Comment: reviewed benefits of activity Family Acceptance, E,D, VU by at 05/06/2020 1510 Comment: Educated on safe sequencing with bed mobility, ambulatory transfers, and gait. Reviewed HEP and spinal precautions. Point: Precautions (In Progress) Learning Progress Summary Patient Acceptance, E, NR by [place] at 05/12/2020 1643 Comment: reviewed benefits of activity Acceptance, E,D, NR by at 05/07/2020 0925 [...] and logroll technique Acceptance, E, NR by [place] at 04/30/2020 1453 Comment: reviewed benefits of activity Family Acceptance, E,D, VU by at 05/06/2020 1510 Comment: Educated on safe sequencing with bed mobility, ambulatory transfers, and gait. Reviewed HEP and spinal precautions. User Dyer Initials Effective Dates Name Provider Type Discipline [place] 01/30/15 - Mahesh, Shearon A, PT Physical Therapist PT 01/30/15 - Eneida [...] 1310 Time Calculation Start Time -- 1310 -[place] PT Received On -- 05/12/20 -[place] PT Goal Re-Cert Due Date -- 05/22/20 -[place] Time Calculation- PT Total Timed Code Minutes- PT 40 minute(s) -[place] -- Timed Charges 62125 - PT Therapeutic Activity Minutes 40 -SC -- User Dyer (r) = Recorded By, (t) = Taken By, (c) = Cosigned By Initials Name Provider Type [place] Momo Aragon, PT Physical Therapist Therapy Charges for Today Code Description Service Date Service Provider Modifiers Qty [id number] PT THERAPEUTIC ACT EA 15 MIN 05/12/2020 Momo Aragon PT GP 3 PT G-Codes Outcome Measure [...] Procedure: ESOPHAGOGASTRODUODENOSCOPY; Surgeon: Dewey Betancourt MD; Location: [facility]; Service: Gastroenterology; Laterality: N/A; ??? LUMBAR LAMINECTOMY DISCECTOMY DECOMPRESSION N/A 04/29/2020 Procedure: LUMBAR LAMINECTOMY DISCECTOMY DECOMPRESSION POSTERIOR L4-5; Surgeon: Yinka Garnica MD; Location: [facility] OR; Service: Neurosurgery; Laterality: N/A; General [...] Provider Type Eneida Martel PT Physical Therapist Mobility Row Name 05/08/20910 [...] - Row Name 05/08/20910 Bed-Chair Transfer Bed-Chair Moore (Transfers) verbal cues;nonverbal cues (demo/gesture);2 person assist;moderate assist (50% patient effort) - Row Name 05/08/20910 Sit-Stand Transfer Sit-Stand Moore (Transfers) verbal cues;nonverbal cues (demo/gesture);moderate assist (50% patient effort);2 person assist - Assistive Device (Sit-Stand Transfers) walker, front-wheeled - Row Name 05/08/20910 Gait/Stairs (Locomotion) Moore Level (Gait) verbal cues;nonverbal cues (demo/gesture);2 person [...] Provider Type Eneida Martel PT Physical Therapist Obj/Interventions Row Name 05/08/20910 [...] Provider Type Eneida Oro PT Physical Therapist Goals/Plan Row Name 05/08/20910 Bed Mobility Goal 1 (PT) Activity/Assistive Device (Bed Mobility Goal 1, PT) scooting;sit to supine - Moore Level/Cues Needed (Bed Mobility Goal 1, PT) modified independence - Time Frame (Bed Mobility Goal 1, PT) 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);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 - Row Name 05/08/20910 Transfer Goal 1 (PT) Activity/Assistive Device (Transfer Goal 1, PT) hys-jb-xomyj/tqrjm-oc-dyw;rzp-ce-ylwgy/oumog-iv-xef;walker, rolling - Moore Level/Cues Needed (Transfer Goal 1, PT) minimum assist (75% or more patient effort) - Time Frame (Transfer Goal 1, PT) 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);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 - Row Name 05/08/20910 Gait Training Goal 1 (PT) Activity/Assistive Device (Gait Training Goal 1, PT) gait (walking locomotion);walker, rolling - Moore Level (Gait Training Goal 1, PT) minimum assist (75% or more patient effort) - Distance (Gait Training Goal 1, PT) 150 - Time Frame (Gait Training Goal 1, PT) 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);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 - Row Name 05/08/20910 Patient Education Goal (PT) Activity (Patient Education Goal, PT) back precautions - Moore/Cues/Accuracy (Memory Goal 2, PT) demonstrates adequately;verbalizes understanding - Time Frame (Patient Education Goal, PT) 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);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 - User Dyer (r) = Recorded By, (t) = Taken By, (c) = Cosigned By Initials Name Provider Type SH Preethi, Eneida E, PT Physical Therapist Clinical Impression Row Name 05/08/20910 Pain Additional Documentation Pain Scale: FACES Pre/Post-Treatment (Group) - Row Name 05/08/20910 Pain Scale: Numbers Pre/Post-Treatment Pretreatment Pain Rating 2/10 - Posttreatment Pain Rating 10/10 - Pain [...] - O2 Delivery Post Treatment room air - Pre Patient Position Sitting - Intra Patient Position Standing - Post Patient Position Sitting - Row Name 05/08/20910 Positioning and Restraints Pre-Treatment Position other (comment) Sitting on edge of bed - Post Treatment Position chair - In Chair reclined;call light within reach;encouraged to call for assist;exit alarm on;notified [facility] [place] - User Dyer (r) = Recorded By, (t) = Taken By, (c) = Cosigned By Initials Name Provider Type Eneida Oro, PT Physical Therapist Outcome Measures Row Name [...] your arms (e.g., wheelchair, bedside chair)? 2 -SH Climbing 3-5 steps with a railing? 1 -SH To walk in hospital room? 2 -SH AM-PAC 6 Clicks Score (PT) 11 - Row Name 05/08/20910 Functional Assessment Outcome Measure Options AM-PAC 6 Clicks Basic Mobility (PT) - User Dyer (r) = Recorded By, (t) = Taken By, (c) = Cosigned By Initials Name Provider Type Eneida Oro PT Physical Therapist Physical Therapy Education Title: PT OT SALON SUPERVISOR Therapies (In Progress) Topic: Physical Therapy (In [...] and logroll technique Acceptance, E, NR by [place] at 04/30/2020 1453 Comment: reviewed benefits of [...] and logroll technique Acceptance, E, NR by [place] at 04/30/2020 1453 Comment: reviewed benefits of [...] and logroll technique Acceptance, E, NR by [place] at 04/30/2020 1453 Comment: reviewed benefits of [...] and logroll technique Acceptance, E, NR by [place] at 04/30/2020 1453 Comment: reviewed benefits of activity Family Acceptance, E,D, VU by MINE at 05/06/2020 1510 Comment: Educated on safe sequencing with bed mobility, ambulatory transfers, and gait. Reviewed HEP and spinal precautions. User Dyer Initials Effective Dates Name Provider Type Discipline [place] 01/30/15 - Momo Aragon, PT Physical Therapist [...] education. Time Calculation: PT Charges Row Name 05/08/20910 Time Calculation Start Time 910 - PT Received On 05/08/20 - PT Goal Re-Cert Due Date 05/11/20 - Time Calculation- PT Total Timed Code Minutes- PT 14 minute(s) - Timed Charges 24822 - Gait Training Minutes 6 - 14809 - PT Therapeutic Activity Minutes 8 - User Dyer (r) = Recorded By, (t) = Taken By, (c) = Cosigned By Initials Name Provider Type Eneida Oro, PT Physical Therapist Therapy Charges for Today Code Description Service Date Service Provider Modifiers Qty [id number] PT THERAPEUTIC ACT EA 15 MIN 05/08/2020 [...] Procedure: ESOPHAGOGASTRODUODENOSCOPY; Surgeon: Dewey Betancourt MD; Location: [facility]; Service: Gastroenterology; Laterality: N/A; ??? LUMBAR LAMINECTOMY DISCECTOMY DECOMPRESSION N/A 04/29/2020 Procedure: LUMBAR LAMINECTOMY DISCECTOMY DECOMPRESSION POSTERIOR L4-5; Surgeon: Yinka Garnica MD; Location: [facility]; Service: Neurosurgery; Laterality: N/A; General [...] abilities;awareness of need for assistance;safety precaution awareness;judgment -MINE Impairments Affecting Function (Mobility) balance;motor control;postural/trunk control;pain;strength;endurance/activity tolerance - Comment, Safety Issues/Impairments (Mobility) Pt refusing OOB activity this session due to 10 pain and fatigue. - User Dyer (r) [...] education - Row Name 05/07/20924 Gait/Stairs (Locomotion) Moore Level (Gait) unable to assess - Comment (Gait/Stairs) Pt refusing OOB activity due to pain, despite max encouragement and education- User Dyer (r) = Recorded By, (t) = Taken By, (c) = Cosigned By Initials Name Provider Type Elieser Rojas, DEMETRIUS Physical Therapist Obj/Interventions [facility] Name 05/07/20924 Motor Skills Therapeutic Exercise hip;knee;ankle ab sets, BKFO, shoulder flexion -[facility] Name 05/07/20924 Hip (Therapeutic Exercise) Hip (Therapeutic Exercise) AROM (active range of motion);isometric exercises - Hip AROM (Therapeutic Exercise) bilateral;external rotation;internal rotation - Hip Isometrics (Therapeutic Exercise) gluteal sets;10 repetitions -[facility] Name 05/07/20924 Knee (Therapeutic Exercise) Knee (Therapeutic Exercise) isometric exercises - Knee AROM (Therapeutic Exercise) bilateral;heel slides;10 repetitions - Knee Isometrics (Therapeutic Exercise) bilateral;quad sets;10 repetitions -[facility] Name 05/07/20924 Ankle (Therapeutic Exercise) Ankle AROM (Therapeutic Exercise) bilateral;dorsiflexion;plantarflexion;10 repetitions - User Dyer (r) = Recorded By, (t) = Taken By, (c) = Cosigned By Initials Name Provider Type Elieser Rojas, PT Physical Therapist Goals/Plan No documentation. Clinical Impression Row Name 05/07/20924 Pain Additional Documentation Pain Scale: Numbers Pre/Post-Treatment (Group) -[facility] 05/07/20924 Pain Scale: Numbers Pre/Post-Treatment Pretreatment Pain Rating 10/10 - Posttreatment Pain Rating 10/10 - Pre/Posttreatment Pain Comment RN notified - Pain Intervention(s) Repositioned - Row Name 05/07/20924 Therapy Assessment/Plan (PT) Rehab Potential (PT) fair, will monitor progress closely - Criteria for Skilled Interventions Met (PT) yes;skilled treatment is necessary - Row Name 05/07/20924 Positioning and Restraints Pre-Treatment Position in bed - Post Treatment Position bed -MIEN In Bed notified nsg;supine;call light within reach;encouraged to call for assist;exit alarm on;patient within staff view;with family/caregiver - User Dyer (r) = Recorded By, (t) = Taken By, (c) = Cosigned By Initials Name Provider Type Elieser Rojas, PT Physical Therapist Outcome Measures Row Name 05/07/20924 How much help from another [...] Clicks Score (PT) 8 - Row Name 05/07/20924 Functional Assessment Outcome Measure Options AM-PAC 6 Clicks Basic Mobility (PT) - User Dyer (r) = Recorded By, (t) = Taken By, (c) = Cosigned By Initials Name Provider Type Elieser Rjoas, PT Physical Therapist Physical Therapy Education Title: PT OT SALON SUPERVISOR Therapies (In Progress) Topic: Physical Therapy (In [...] and logroll technique Acceptance, E, NR by [place] at 04/30/2020 1453 Comment: reviewed benefits of [...] and logroll technique Acceptance, E, NR by [place] at 04/30/2020 1453 Comment: reviewed benefits of [...] and logroll technique Acceptance, E, NR by [place] at 04/30/2020 1453 Comment: reviewed benefits of [...] and logroll technique Acceptance, E, NR by [place] at 04/30/2020 1453 Comment: reviewed benefits of activity Family Acceptance, E,D, VU by at 05/06/2020 1510 Comment: Educated on safe sequencing with bed mobility, ambulatory transfers, and gait. Reviewed HEP and spinal precautions. User Dyer Initials Effective Dates Name Provider Type Discipline [place] 01/30/15 - Momo Aragon, PT Physical Therapist PT 04/23/19 - Elieser Hawkins, PT Physical Therapist PT PT Recommendation and Plan Plan of Care Reviewed With: patient Progress: improving Outcome Summary: Pt refusing OOB mobility due to 05/23 pain and fatigue, despite max education and encouragement. RN notified. Pt agreeable to exercise. Reviewed spinal precautions and logroll technique. Will continue to progress strength and mobility as able. Time Calculation: PT Charges Row Name 05/07/20924 Time Calculation Start Time 924 - PT Received On 05/07/20 - PT Goal Re-Cert Due Date 05/11/20 - Time Calculation- PT Total Timed Code Minutes- PT 10 minute(s) - Timed Charges 37932 - PT Therapeutic Exercise Minutes 10 -MINE User Dyer (r) = Recorded By, (t) = Taken By, (c) = Cosigned By Initials Name Provider Type Elieser Rojas, PT Physical Therapist Therapy Charges for Today Code Description Service Date Service Provider Modifiers Qty [id number] PT THER PROC EA 15 MIN 05/06/2020 Elieser Hawkins, PT GP 1 [id number] PT THERAPEUTIC ACT EA 15 MIN 05/06/2020 Elieser Hawkins, PT GP 1 48400937841 HC PT THER SUPP EA 15 MIN 05/06/2020 Elieser Hawkins, PT GP 2 [id number] HC PT THER PROC EA 15 MIN [...] Procedure: ESOPHAGOGASTRODUODENOSCOPY; Surgeon: Dewey Betancourt MD; Location: [facility]; Service: Gastroenterology; Laterality: N/A; ??? LUMBAR LAMINECTOMY DISCECTOMY DECOMPRESSION N/A 04/29/2020 Procedure: LUMBAR LAMINECTOMY DISCECTOMY DECOMPRESSION POSTERIOR L4-5; Surgeon: Yinka Garnica MD; Location: [facility]; Service: Neurosurgery; Laterality: N/A; General Information Row Name 05/06/201509 Physical Therapy Time and Intention Document Type therapy note (daily note) -MINE Mode of Treatment individual therapy;physical therapy -MINE Row Name 05/06/201509 General Information Patient Profile Reviewed yes -MINE Prior Level of Function min assist:;bed mobility;ADL's;transfer;all household mobility -MINE Existing Precautions/Restrictions fall;spinal -MINE Row Name 05/06/201509 Cognition Orientation Status (Cognition) oriented x 3 -MINE Row Name 05/06/201509 Safety Issues, Functional Mobility Safety Issues Affecting [...] By Initials Name Provider Type MINE Elieser Hawkins PT Physical Therapist Mobility Row Name 05/06/201509 Bed Mobility Bed Mobility rolling right;rolling left;sidelying-sit;sit-sidelying -MINE Rolling Left Moore (Bed Mobility) verbal cues;moderate assist (50% patient effort);2 person assist -MINE Rolling Right Moore (Bed Mobility) verbal cues;moderate assist (50% patient effort);2 personassist -MINE Sidelying-Sit Moore (Bed Mobility) verbal cues;maximum assist (25% patient effort);2 person assist -MINE Sit-Sidelying Moore (Bed Mobility) verbal cues;moderate assist (50% patient effort);2 personassist -MINE Assistive Device (Bed Mobility) bed rails;draw sheet;head of bed elevated - Comment (Bed Mobility) Mod-max Ax2 for LE management and trunk control into sitting - Row Name 05/06/201509 Transfers Comment (Transfers) Verbal cues for safe hand placement during standing/sitting and maintaining spinal precautions with transfer performed 2x - Row Name 05/06/20 151 Sit-Stand Transfer Sit-Stand Moore (Transfers) verbal cues;moderate assist (50% patient effort);2 person assist-MINE Assistive Device (Sit-Stand Transfers) walker, front-wheeled - Row Name 05/06/20 151 Gait/Stairs (Locomotion) Moore Level (Gait) verbal cues;moderate assist (50% patient effort);2 person assist - Assistive Device (Gait) walker, front-wheeled - Distance in Feet (Gait) 2 feet - Deviations/Abnormal Patterns (Gait) bilateral deviations;anand decreased;gait speed decreased;antalgic;stride length decreased;base of support, narrow;festinating/shuffling - Bilateral Gait Deviations forward flexed posture;weight shift ability decreased;heel strike decreased - Moore Level (Stairs) not tested - Comment (Gait/Stairs) Pt ambulated 2 feet with [...] Type MINE Elieser Hawkins, PT Physical Therapist Obj/Interventions Row Name 05/06/201509 Motor Skills Therapeutic Exercise knee;hip;ankle;other (see comments) ab sets, BKFO, shoulder flexion - Row Name 05/06/201509 Hip (Therapeutic Exercise) Hip (Therapeutic Exercise) AROM (active range of motion);isometric exercises - Hip AROM (Therapeutic Exercise) bilateral;external rotation;internal rotation - Hip Isometrics (Therapeutic Exercise) gluteal sets;10 repetitions - Row Name 05/06/201509 Knee (Therapeutic Exercise) Knee (Therapeutic Exercise) isometric exercises;strengthening exercise - Knee Isometrics (Therapeutic Exercise) bilateral;quad sets - Knee Strengthening (Therapeutic Exercise) bilateral;flexion;heel slides;10 repetitions -[facility] Name 05/06/201509 Ankle (Therapeutic Exercise) Ankle (Therapeutic Exercise) AROM (active range of motion) - Ankle AROM (Therapeutic Exercise) bilateral;dorsiflexion;10 repetitions;plantarflexion - User Dyer (r) = Recorded By, (t) = Taken By, (c) = Cosigned By Initials Name Provider Type Elieser Rojas, PT Physical Therapist Goals/Plan No documentation. Clinical Impression [facility] Name 05/06/201509 Pain Additional Documentation Pain Scale: Numbers Pre/Post-Treatment (Group) -[facility] 05/06/201509 Pain Scale: Numbers Pre/Post-Treatment Pretreatment Pain Rating 10/10 - Posttreatment Pain Rating 10/10 - Pain Location - Side Bilateral -MINE Pain Location - Orientation lower -MINE Pain Location back - Pain Intervention(s) Repositioned;Cold applied;Ambulation/increased activity -[facility] Name 05/06/201509 Therapy Assessment/Plan (PT) Rehab Potential (PT) fair, will monitor progress closely - Criteria for Skilled Interventions Met (PT) yes;skilled treatment is necessary -[facility] Name 05/06/201509 Positioning and Restraints Pre-Treatment Position in bed - Post Treatment Position bed -MINE In Bed notified nsg;supine;call light within reach;encouraged to call for assist;exit alarm on;patient within staff view;with family/caregiver - User Dyer (r) = Recorded By, (t) = Taken By, (c) = Cosigned By Initials Name Provider Type Elieser Rojas, PT Physical Therapist Outcome Measures Row Name 05/06/201509 How much help from another [...] Clicks Score (PT) 8 - Row Name 05/06/200 Functional Assessment Outcome Measure Options AM-PAC 6 Clicks Basic Mobility (PT) - User Dyer (r) = Recorded By, (t) = Taken By, (c) = Cosigned By Initials Name Provider Type Elieser Rojas, PT Physical Therapist Physical Therapy Education Title: PT OT SALON SUPERVISOR Therapies (Done) Topic: Physical Therapy (Done) Point: [...] and logroll technique Acceptance, E, NR by [place] at 04/30/2020 1453 Comment: reviewed benefits of [...] and logroll technique Acceptance, E, NR by [place] at 04/30/2020 1453 Comment: reviewed benefits of [...] and logroll technique Acceptance, E, NR by [place] at 04/30/2020 1453 Comment: reviewed benefits of [...] and logroll technique Acceptance, E, NR by [place] at 04/30/2020 1453 Comment: reviewed benefits of activity Family Acceptance, E,D, VU by at 05/06/2020 1510 Comment: Educated on safe sequencing with bed mobility, ambulatory transfers, and gait. Reviewed HEP and spinal precautions. User Dyer Initials Effective Dates Name Provider Type Discipline [place] 01/30/15 - Momo Aragon, PT Physical Therapist [...] Minutes- PT 23 minute(s) - Timed Charges 52655 - PT Therapeutic Exercise Minutes 10 -MINE 06382 - Gait Training Minutes 2 -MINE 72393 - PT Therapeutic Activity Minutes 11 -MINE User Dyer (r) = Recorded By, (t) = Taken By, (c) = Cosigned By Initials Name Provider Type MINE Elieser Hawkins, PT Physical Therapist Therapy Charges for Today Code Description Service Date Service Provider Modifiers Qty [id number] HC PT THER PROC EA 15 MIN 05/06/2020 Elieser Hawkins, PT GP 1 [id number] HC PT THERAPEUTIC ACT EA 15 MIN 05/06/2020 Elieser Hawkins, PT GP 1 PT G-Codes Outcome Measure Options: AM-PAC 6 Clicks Basic Mobility (PT) AM-PAC 6 Clicks Score (PT): 8 Elieser Hawkins PT 05/06/2020 * Therapy Treatment Note - Elieser Hawkins, PT - 05/03/2020 1:00 PM EDT Patient [...] POSTERIOR L4-5; Surgeon: Yinka Garnica MD; Location: [facility]; Service: Neurosurgery; Laterality: N/A; General Information Row Name 05/03/20 1300 Physical Therapy Time and Intention Document Type therapy note (daily note) -MINE Mode of Treatment individual therapy;physical therapy -MINE Row Name 05/03/20 1300 General Information Patient [...] tolerance - Comment, Safety Issues/Impairments (Mobility) Pt in too much pain to perform ambulatory tasks this session - User Dyer (r) = Recorded By, (t) = Taken By, (c) = Cosigned By Initials Name Provider Type MINE Elieser Hawkins, PT Physical Therapist Mobility Row Name 05/03/20 1300 Bed Mobility Comment (Bed Mobility) Pt refusing mobility due to 10/10 back pain -MNIE Row Name 05/03/20 1300 Transfers Comment (Transfers) Pt refusing mobility due to 10/10 back pain -MINE Row Name 05/03/20 1300 Gait/Stairs (Locomotion) Comment (Gait/Stairs) Pt refusing mobility due to 10/10 back pain - User Dyer (r) = Recorded By, (t) = Taken By, (c) = Cosigned By Initials Name Provider Type Elieser Rojas, DEMETRIUS Physical Therapist Obj/Interventions Row Name 05/03/20 1300 Motor Skills Therapeutic Exercise hip;knee;ankle ab sets -[facility] Name 05/03/20 1300 Hip (Therapeutic Exercise) Hip (Therapeutic Exercise) isometric exercises - Hip AROM (Therapeutic Exercise) bilateral;external rotation;internal rotation;10 repetitions - Hip Isometrics (Therapeutic Exercise) gluteal sets;10 repetitions - Row Name 05/03/20 1300 Knee (Therapeutic Exercise) Knee [...] Physical Therapist Goals/Plan No documentation. Clinical Impression [facility] Name 05/03/20 1300 Pain Additional Documentation Pain Scale: Numbers Pre/Post-Treatment (Group) -[facility] 05/03/20 1300 Pain Scale: Numbers Pre/Post-Treatment Pretreatment Pain Rating 10/10 -MINE Posttreatment Pain Rating 10/10 - Pain Location - Side Bilateral -MINE Pain Location - Orientation lower - Pain Location back - Pre/Posttreatment Pain Comment Pt agreeable to bed level exercise - Pain Intervention(s) Repositioned - Row Name 05/03/20 1300 Therapy Assessment/Plan (PT) Rehab Potential (PT) fair, will monitor progress closely - Criteria for Skilled Interventions Met (PT) yes;skilled treatment is necessary -[facility] Name 05/03/20 1300 Positioning and Restraints Pre-Treatment Position in bed - Post Treatment Position bed -MINE In Bed notified nsg;supine;call light within reach;encouraged to call for assist;exit alarm on;patient within staff view;with family/caregiver - User Dyer (r) = Recorded By, (t) = Taken By, (c) = Cosigned By Initials Name Provider Type Elieser Rojas PT Physical Therapist Outcome Measures Row Name [...] Clicks Score (PT) 8 -MINE Row Name 05/03/20 1300 Functional Assessment Outcome Measure Options AM-PAC 6 Clicks Basic Mobility (PT) - User Dyer (r) = Recorded By, (t) = Taken By, (c) = Cosigned By Initials Name Provider Type Elieser Rojas PT Physical Therapist Physical Therapy Education Title: PT OT SALON SUPERVISOR Therapies (In Progress) Topic: Physical Therapy (In [...] and logroll technique Acceptance, E, NR by [place] at 04/30/2020 1453 Comment: reviewed benefits of [...] and logroll technique Acceptance, E, NR by [place] at 04/30/2020 1453 Comment: reviewed benefits of [...] and logroll technique Acceptance, E, NR by [place] at 04/30/2020 1453 Comment: reviewed benefits of [...] and logroll technique Acceptance, E, NR by [place] at 04/30/2020 1453 Comment: reviewed benefits of activity User Dyer Initials Effective Dates Name Provider Type Discipline [place] 01/30/15 - Momo Aragon, PT Physical Therapist [...] Minutes- PT 10 minute(s) - Timed Charges 93106 - PT Therapeutic Exercise Minutes 10 -MINE User Dyer (r) = Recorded By, (t) = Taken By, (c) = Cosigned By Initials Name Provider Type Elieser Hawkins, PT Physical Therapist Therapy Charges for Today Code Description Service Date Service Provider Modifiers Qty 60692823014 HC PT THER PROC EA 15 MIN 05/02/2020 Elieser Hawkins, PT GP 1 46521019991 HC PT THERAPEUTIC ACT EA 15 MIN 05/02/2020 Elieser Hawkins, PT GP 1 [id number] HC PT THER PROC EA 15 MIN 05/03/2020 Elieser Hawkins, PT GP 1 PT G-Codes Outcome Measure Options: AM-PAC 6 Clicks Basic Mobility (PT) AM-PAC 6 Clicks Score (PT): 8 Elieser Hawkins PT 05/03/2020 * Therapy Treatment Note - Elieser Hawkins, PT - 05/02/2020 10:28 AM EDT Patient [...] POSTERIOR L4-5; Surgeon: Yinka Garnica MD; Location: [facility]; Service: Neurosurgery; Laterality: N/A; General Information Row Name 05/02/20 1028 Physical Therapy Time and Intention Document Type therapy note (daily note) - Mode of Treatment individual therapy;physical therapy - Row Name 05/02/20 1028 General Information Patient Profile Reviewed yes - Existing Precautions/Restrictions fall;spinal - Row Name 05/02/20 1028 Cognition Orientation Status (Cognition) oriented x 3 - Row Name 05/02/20 1028 Safety Issues, Functional [...] Bed Mobility rolling left;sidelying-sit;scooting/bridging - Rolling Left Moore (Bed Mobility) verbal cues;moderate assist (50% patient effort) - Scooting/Bridging Moore (Bed Mobility) verbal cues;moderate assist (50% patient effort) - Sidelying-Sit Moore (Bed Mobility) verbal cues;maximum assist (25% patient [...] bed to BSC and BSC to chair -[facility] Name 05/02/20 1028 Bed-Chair Transfer Bed-Chair Moore (Transfers) verbal cues;moderate assist (50% patient effort);2 person assist- Assistive Device (Bed-Chair Transfers) walker, front-wheeled - Row Name 05/02/20 1028 Sit-Stand Transfer Sit-Stand Moore (Transfers) verbal cues;moderate assist (50% patient effort);2 person assist- Assistive Device (Sit-Stand Transfers) walker, front-wheeled - Row Name 05/02/20 1028 Gait/Stairs (Locomotion) Moore Level (Gait) unable to assess - Comment (Gait/Stairs) Pt unable to safely take steps for gait training due to his pain - User Dyer (r) = Recorded By, (t) = Taken By, (c) = Cosigned By Initials Name Provider Type Elieser Rojas, DEMETRIUS Physical Therapist Obj/Interventions [facility] Name 05/02/20 1028 Motor Skills Therapeutic Exercise hip;knee;ankle ab sets -[facility] Name 05/02/20 1028 Hip (Therapeutic Exercise) Hip (Therapeutic Exercise) isometric exercises - Hip Isometrics (Therapeutic Exercise) bilateral;external rotation;internal rotation;gluteal sets;10repetitions -[facility] Name 05/02/20 1028 Knee (Therapeutic Exercise) Knee (Therapeutic Exercise) AROM (active range of motion);isometric exercises - Knee AROM (Therapeutic Exercise) heel slides;10 repetitions;bilateral - Knee Isometrics (Therapeutic Exercise) quad sets;10 repetitions -[facility] 05/02/20 1028 Ankle (Therapeutic Exercise) Ankle (Therapeutic Exercise) AROM (active range of motion) - Ankle Isometrics (Therapeutic Exercise) bilateral;dorsiflexion;plantarflexion;10 repetitions - User Dyer (r) = Recorded By, (t) = Taken By, (c) = Cosigned By Initials Name Provider Type Elieser Rojas, PT Physical Therapist Goals/Plan No documentation. Clinical Impression [facility] Name 05/02/20 1028 Pain Additional Documentation Pain Scale: Numbers Pre/Post-Treatment (Group) -[facility] 05/02/20 1028 Pain Scale: Numbers Pre/Post-Treatment Pretreatment Pain Rating 8/10 - Posttreatment Pain Rating 10/10 - Pain Location - Side Bilateral - Pain Location - Orientation lower - Pain Location back - Pre/Posttreatment Pain Comment RN present and aware - Pain Intervention(s) Repositioned;Ambulation/increased activity - Row Name 05/02/20 1028 Therapy Assessment/Plan (PT) Rehab Potential (PT) good, to achieve stated therapy goals - Criteria for Skilled Interventions Met (PT) yes;skilled treatment is necessary - Row Name 05/02/20 1028 Positioning and Restraints Pre-Treatment Position in bed - Post Treatment Position chair - In Chair notified nsg;reclined;call light within reach;encouraged [...] Therapist Physical Therapy Education Title: PT OT SALON SUPERVISOR Therapies (Done) Topic: Physical Therapy (Done) Point: Mobility training (Done) Learning Progress Summary Patient Acceptance, E,D, VU by at 05/02/2020 1028 Comment: Educated on safe sequencing with bed mobility and ambulatory transfers. Reviewed HEP, spinal precautions, and logroll technique Acceptance, E, NR by [place] at 04/30/2020 1453 Comment: reviewed benefits of activity Point: Home exercise program (Done) Learning Progress Summary Patient Acceptance, E,D, VU by at 05/02/2020 1028 Comment: Educated on safe sequencing with bed mobility and ambulatory transfers. Reviewed HEP, spinal precautions, and logroll technique Acceptance, E, NR by [place] at 04/30/2020 1453 Comment: reviewed benefits of activity Point: Body mechanics (Done) Learning Progress Summary Patient Acceptance, E,D, VU by at 05/02/2020 1028 Comment: Educated on safe sequencing with bed mobility and ambulatory transfers. Reviewed HEP, spinal precautions, and logroll technique Acceptance, E, NR by [place] at 04/30/2020 1453 Comment: reviewed benefits of activity Point: Precautions (Done) Learning Progress Summary Patient Acceptance, E,D, VU by at 05/02/2020 1028 Comment: Educated on safe sequencing with bed mobility and ambulatory transfers. Reviewed HEP, spinal precautions, and logroll technique Acceptance, E, NR by [place] at 04/30/2020 1453 Comment: reviewed benefits of activity User Dyer Initials Effective Dates Name Provider Type Discipline [place] 01/30/15 - Momo Aragon PT Physical Therapist PT 04/23/19 - Elieser [...] Minutes- PT 23 minute(s) - Timed Charges 34668 - PT Therapeutic Exercise Minutes 10 - 70337 - PT Therapeutic Activity Minutes 13 - User Dyer (r) = Recorded By, (t) = Taken By, (c) = Cosigned By Initials Name Provider Type Elieser Hawkins, PT Physical Therapist Therapy Charges for Today Code Description Service Date Service Provider Modifiers Qty 78302043543 HC PT THER PROC EA 15 MIN 05/02/2020 Elieser Hawkins, PT GP 1 77732204228 HC PT THERAPEUTIC ACT EA 15 MIN 05/02/2020 Elieser Hawkins, PT GP 1 PT G-Codes Outcome Measure Options: AM-PAC 6 Clicks Basic Mobility (PT) AM-PAC 6 Clicks Score (PT): 8 Elieser Hawkins PT 05/02/2020 * Therapy Evaluation - oMmo Aragon PT - 04/30/2020 10:35 AM EDT Patient [...] POSTERIOR L4-5; Surgeon: Yinka Garnica MD; Location: [facility]; Service: Neurosurgery; Laterality: N/A; General Information Row Name 04/30/20 143 Physical Therapy Time and Intention Document Type evaluation -[place] Mode of Treatment physical therapy -[place] Row Name 04/30/20 143 General Information Patient Profile Reviewed yes -[place] Existing Precautions/Restrictions fall;spinal -[place] Row Name 04/30/20 143 Living Environment Lives With spouse;other (see comments) unknown -[place] Row Name 04/30/20 143 Cognition Orientation Status (Cognition) oriented x 3 -[place] Row Name 04/30/20 143 Safety Issues, Functional Mobility Safety Issues Affecting Function (Mobility) judgment;problem- solving;impulsivity;sequencing abilities;insight into deficits/self-awareness -[place] Impairments Affecting Function (Mobility) balance;motor control;postural/trunk control;pain;strength;endurance/activity tolerance -[place] Comment, Safety Issues/Impairments (Mobility) very anxious -[place] User Dyer (r) = Recorded By, (t) = Taken By, (c) = Cosigned By Initials Name Provider Type [place] Momo Aragon PT Physical Therapist Mobility Row Name 04/30/20 1438 Bed Mobility Bed Mobility scooting/bridging;supine-sit;sit-supine;rolling right;rolling left -[place] Rolling Left Moore (Bed Mobility) verbal cues;dependent (less than 25% patient effort) -[place] Rolling Right Moore (Bed Mobility) verbal cues;moderate assist (50% patient effort) -[place] Scooting/Bridging Moore (Bed Mobility) verbal cues;moderate assist (50% patient effort) -[place] Supine-Sit Moore (Bed Mobility) verbal cues;2 person assist;maximum assist (25% patient effort) -[place] Sit-Supine Moore (Bed Mobility) 2 person assist;maximum assist (25% patient effort) -[place] Assistive Device (Bed Mobility) bed rails;draw sheet;head of bed elevated -[place] Comment (Bed Mobility) up to edge of bed for assessment. Required repeted cues for rolling and sequencing . Patient required help with trunk and legs. On sitting he demonstrated increased anxiety andcrying begging to bed layed down. Was able to calm down for a few minutes they layed back in to bed-[facility] Name 04/30/20 1438 Transfers Comment (Transfers) refused standing or out of bed -[facility] Name 04/30/20 1438 Gait/Stairs (Locomotion) Comment (Gait/Stairs) not assessed -[place] User Dyer (r) = Recorded By, (t) = Taken By, (c) = Cosigned By Initials Name Provider Type [place] Momo Aragon PT Physical Therapist Obj/Interventions Row Name 04/30/20 1441 Range of Motion Comprehensive General Range of Motion bilateral upper extremity ROM WNL;bilateral lower extremity ROM WNL -[place] Comment, General Range of Motion joints wfl -[place] Row Name 04/30/20 1441 Strength Comprehensive (MMT) General Manual Muscle Testing (MMT) Assessment lower extremity strength deficits identified -[place] Comment, General Manual Muscle Testing (MMT) Assessment B UE: grossly 4+/5 R LE: quads 3+/5, tib ant 4/5, hip flexion 3/5 . L LE: quads 3/5, tib ant 3+/5 hip flex 3/5 -[facility] Name 04/30/20 144 Motor Skills Therapeutic Exercise ankle;knee;hip -[facility] 04/30/20 144 Hip (Therapeutic Exercise) Hip (Therapeutic Exercise) isometric exercises -[place] Hip Isometrics (Therapeutic Exercise) 10 repetitions;gluteal sets -[facility] Name 04/30/20 1441 Knee (Therapeutic Exercise) Knee (Therapeutic Exercise) isometric exercises -[place] Knee Isometrics (Therapeutic Exercise) quad sets -[facility] 04/30/20 1441 Ankle (Therapeutic Exercise) Ankle (Therapeutic Exercise) isometric exercises -[place] Ankle Isometrics (Therapeutic Exercise) bilateral;dorsiflexion;plantarflexion -[facility] Name 04/30/20 144 Balance Balance Assessment sitting static balance -[place] Static Sitting Balance mild impairment leans on left side more. -[place] Balance Interventions sitting -[place] Comment, Balance working on midline sitting with cues to put equal wt in sitting -[facility] Name 04/30/20 144 Sensory Assessment (Somatosensory) Sensory Assessment (Somatosensory) LE sensation intact -[facility] 04/30/20 144 Lower Extremity (Manual Muscle Testing) Lower Extremity: Manual Muscle Testing (MMT) left knee strength deficit;right knee strength deficit;right hip strength deficit;left hip strength deficit -[place] User Dyer (r) = Recorded By, (t) = Taken By, (c) = Cosigned By Initials Name Provider Type [place] Momo Aragon A, PT Physical Therapist Goals/Plan [facility] 04/30/20 144 Bed Mobility Goal 1 (PT) Activity/Assistive Device (Bed Mobility Goal 1, PT) scooting;sit to supine -[place] Moore Level/Cues Needed (Bed Mobility Goal 1, PT) modified independence -[place] Time Frame (Bed Mobility Goal 1, PT) residential goal (LTG);10 days -[facility] 04/30/201448 Transfer Goal 1 (PT) Activity/Assistive Device (Transfer Goal 1, PT) dex-jl-itkpu/cnmcm-rj-sie;mtf-du-wdjft/taaqb-ri-epn;walker, rolling -[place] Moore Level/Cues Needed (Transfer Goal 1, PT) minimum assist (75% or more patient effort) -[place] Time Frame (Transfer Goal 1, PT) residential goal (LTG);10 days -[facility] 04/30/20 1449 Gait Training Goal 1 (PT) Activity/Assistive Device (Gait Training Goal 1, PT) gait (walking locomotion);walker, rolling -[place] Moore Level (Gait Training Goal 1, PT) minimum assist (75% or more patient effort) -[place] Distance (Gait Training Goal 1, PT) 150 -[place] Time Frame (Gait Training Goal 1, PT) residential goal (LTG);10 days -[facility] 04/30/20 1449 Patient Education Goal (PT) Activity (Patient Education Goal, PT) back precautions -[place] Moore/Cues/Accuracy (Memory Goal 2, PT) demonstrates adequately;verbalizes understanding -[place] Time Frame (Patient Education Goal, PT) 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 He requires max assist for bedmobility . HE was unable to tolerate sitting for very long and refused to stand or attempt walking.Overall his legs are weak, however he is mostly limited by pain and anxiety.Recommend Acute rehab at discharge -[facility] 04/30/20 1035 Therapy Assessment/Plan (PT) Patient/Family Therapy Goals Statement (PT) decrease pain -[place] Rehab Potential (PT) good, to achieve stated therapy goals -[place] Criteria for Skilled Interventions Met (PT) yes;skilled treatment is necessary -[facility] 04/30/20 1035 Vital Signs Intratreatment Heart Rate (beats/min) 135 -[place] Posttreatment Heart Rate (beats/min) 100 -[facility] 04/30/20 1035 Positioning and Restraints Pre-Treatment Position in bed -[place] Post Treatment Position bed -[place] In Bed notified nsg;supine;call light within reach;encouraged to call for assist -[place] User Dyer (r) = Recorded By, (t) = Taken By, (c) = Cosigned By Initials Name Provider Type [place] Momo Aragon, PT Physical Therapist Outcome Measures [facility] 04/30/20 1452 How much help from another person do [...] -[place] To walk in hospital room? 1 -[place] AM-[facility] 6 Clicks Score (PT) 8 -[place] Row Name 04/30/20 1452 Functional Assessment Outcome Measure Options AM-PAC 6 Clicks Basic Mobility (PT) -[place] User Dyer (r) = Recorded By, (t) = Taken By, (c) = Cosigned By Initials Name Provider Type [place] Momo Aragon PT Physical Therapist Physical Therapy Education Title: PT OT SALON SUPERVISOR Therapies (In Progress) Topic: Physical Therapy (In Progress) Point: Mobility training (In Progress) Learning Progress Summary Patient Acceptance, E, NR by [place] at 04/30/2020 1453 Comment: reviewed benefits of activity Point: Home exercise program (In Progress) Learning Progress Summary Patient Acceptance, E, NR by [place] at 04/30/2020 1453 Comment: reviewed benefits of activity Point: Body mechanics (In Progress) Learning Progress Summary Patient Acceptance, E, NR by [place] at 04/30/2020 1453 Comment: reviewed benefits of activity Point: Precautions (In Progress) Learning Progress Summary Patient Acceptance, E, NR by [place] at 04/30/2020 1453 Comment: reviewed benefits of activity User Dyer Initials Effective Dates Name Provider Type [facility] 01/30/15 - Momo Aragon PT Physical [...] 04/30/20 1035 Time Calculation Start Time 1035 -[place] PT Received On 04/30/20 -[place] PT Goal Re-Cert Due Date 05/11/20 -[place] User Deyr (r) = Recorded By, (t) = Taken By, (c) = Cosigned By Initials Name Provider Type [place] Momo Aragon PT Physical Therapist Therapy Charges for Today Code Description Service Date Service Provider Modifiers Qty 11928722899 HC PT EVAL MOD COMPLEXITY 4 04/30/2020 Momo Aragon, PT GP 1 [id number] HC PT THER SUPP EA 15 MIN [...] 4:07 PM EDT POCT GLUCOSE FINGERSTICK Routine 020 11:15 AM EDT POCT GLUCOSE FINGERSTICK Routine [...] 8:15 PM EDT POCT GLUCOSE FINGERSTICK Routine 020 4:01 PM EDT POCT GLUCOSE FINGERSTICK Routine 11:54 AM EDT POCT GLUCOSE FINGERSTICK Routine 020 7:27 AM EDT POCT GLUCOSE FINGERSTICK Routine [...] 8:03 PM EDT POCT GLUCOSE FINGERSTICK Routine 4:08 PM EDT HEMODIALYSIS INPATIENT Routine 0 2:37 PM EDT POCT GLUCOSE FINGERSTICK Routine 11:07 AM EDT CYCLOSPORINE LEVEL Routine 05/07/2020 7:38 AM EDT PROTIME-INR Routine 05/07/2020 7:38 AM EDT CBC (NO DIFF) Routine 05/07/2020 7:38 AM EDT POCT GLUCOSE FINGERSTICK Routine 020 7:38 AM EDT AMMONIA Routine 05/07/2020 7:38 AM EDT COMPREHENSIVE METABOLIC PANEL Routine 7:38 AM EDT POCT GLUCOSE FINGERSTICK Routine 020 9:52 PM EDT POCT GLUCOSE FINGERSTICK Routine 020 4:04 PM EDT POCT GLUCOSE FINGERSTICK Routine 020 1:09 PM EDT SEDIMENTATION RATE Routine 05/06/2020 5:57 AM EDT C-REACTIVE PROTEIN Routine 05/06/2020 5:57 AM EDT VANCOMYCIN, RANDOM Routine 05/06/2020 5:57 AM EDT POCT GLUCOSE FINGERSTICK Routine 020 9:30 PM EDT POCT GLUCOSE FINGERSTICK Routine [...] UPPER GI ENDOSCOPY 05/04/2020 6:38 PM EDT NV ESOPHAGOGASTRODUODENOSCOP Y TRANSORAL DIAGNOSTIC 05/04/2020 6:35 PM [...] 9:07 AM EDT POCT GLUCOSE FINGERSTICK Routine 7:45 AM EDT POCT GLUCOSE FINGERSTICK Routine 020 8:32 PM EDT POCT GLUCOSE FINGERSTICK Routine 4:19 PM EDT HEMODIALYSIS INPATIENT Routine 0 2:45 PM EDT ANTIBODY IDENTIFICATION Routine 04/30/20 2:26 PM EDT TYPE AND SCREEN Routine 04/30/2020 2:26 PM EDT POCT GLUCOSE FINGERSTICK Routine 11:16 AM EDT POCT GLUCOSE FINGERSTICK Routine 8:19 AM EDT ABORH 2ND SPECIMEN VERIFICATION [...] FL C ARM DURING SURGERY Routine 04/29/20 7:16 PM EDT AFB CULTURE Routine 04/29/2020 [...] HEMATOCRIT, BLOOD Routine 04/29/2020 5:46 PM EDT BASIC METABOLIC PANEL Add-On 04/29/2020 [...] EDT RESPIRATORY PANEL PCR W/ COVID-19 (SARS-COV-2), CUPOLA CHARGER SWAB IN UTM/VTP, 2 HR TAT Routine [...] - 130 mg/dL 05/13/2020 11:37 AM EDT [facility] Blood 05/13/2020 11:2 8 AM EDT 05/13/2020 11:37 AM EDT Gabbi Paul II, DO POINT OF CARE TEST ORDERA BLES Final Result Performing Organization Address City/[facility] Co de Phone Number [facility]
[address] [place] [address], * POC Glucose Once (05/13/2020 8:50 AM EDT) Glucose 96 70 - 130 mg/dL 05/13/2020 8:55 AM EDT [facility] Blood 05/13/2020 8:50 AM EDT 05/13/2020 8:55 AM EDT Gabbi Paul II, DO POINT OF CARE TEST ORDERA BLES Final Result Performing Organization Address [facility] Co de Phone Number [facility]
[address] [place] [address], [place] [phone] * (ABNORMAL) C-reactive Protein (05/13/2020 8:31 AM EDT) C-Reactive Protein 14.82(H) 0.00 - 0.50 mg/dL 05/13/2020 8:55 AM EDT [facility] Blood Line / Unknown 05/13/2020 8: 31 AM EDT 05/13/2020 8:31 AM EDT us Cayetano Rodriguez MD LAB BLOOD ORDERABLES Final Resul t Performing Organization Address City/[facility]/ZIP Co de Phone Number [facility]
[address] [place] [address], [place] [phone] * POC Glucose Once (05/13/2020 7:30 AM EDT) Glucose 117 70 - 130 mg/dL 05/13/2020 7:32 AM EDT [facility] Blood 05/13/2020 7:30 AM EDT 05/13/2020 7:32 AM EDT Gabbi M Beverly II, DO POINT OF CARE TEST ORDERA BLES Final Result Performing Organization Address City/[facility]/ZIP Co de Phone Number [facility]
[address] [place] [address], [place] [phone] * (ABNORMAL) POC Glucose Once (05/12/2020 8:17 PM EDT) Glucose 144(H) 70 - 130 mg/dL 05/12/2020 8:18 PM EDT [facility] Blood 05/12/2020 8:17 PM EDT 05/12/2020 8:18 PM EDT Gabbi Paul II, DO POINT OF CARE TEST ORDERA BLES Final Result Performing Organization Address [facility] Co de Phone Number [facility]
[address] [place] [address], [place] [phone] * (ABNORMAL) POC Glucose Once (05/12/2020 4:16 PM EDT) Glucose 138(H) 70 - 130 mg/dL 05/12/2020 4:17 PM EDT [facility] Blood 05/12/2020 4:16 PM EDT 05/12/2020 4:17 PM EDT Gabbi Harish Paul II, DO POINT OF CARE TEST ORDERA BLES Final Result Performing Organization Address City/[facility]/ZIP Co de Phone Number [facility]
[address] [place] [address], * POC Glucose Once (05/12/2020 11:15 AM EDT) Glucose 129 70 - 130 mg/dL 05/12/2020 11:37 AM EDT [facility] Blood 05/12/2020 11:1 5 AM EDT 05/12/2020 11:37 AM EDT us Gabbi Paul II, DO POINT OF CARE TEST ORDERA BLES Final Result Performing Organization Address [facility] de Phone Number [facility]
[address] [place] [address], [place] [phone] * POC Glucose Once (05/12/2020 8:06 AM EDT) Glucose 126 70 - 130 mg/dL 05/12/2020 8:08 AM EDT [facility] Blood 05/12/2020 8:06 AM EDT 05/12/2020 8:08 AM EDT us Gabbi Paul II, DO POINT OF CARE TEST ORDERA BLES Final Result Performing Organization Address [facility] de Phone Number [facility]
[address] [place] [address], [place] [phone] * (ABNORMAL) POC Glucose Once (05/11/2020 8:19 PM EDT) Glucose 186(H) 70 - 130 mg/dL 05/11/2020 8:21 PM EDT [facility] Blood 05/11/2020 8:19 PM EDT 05/11/2020 8:21 PM EDT us Odette Garce MD POINT OF CARE TEST ORDERABLES Fi nal Result [facility]
[address] [place] [address], [place] [phone] * POC Glucose Once (05/11/2020 4:49 PM EDT) Glucose 121 70 - 130 mg/dL 05/11/2020 4:54 PM EDT [facility] Blood 05/11/2020 4:49 PM EDT 05/11/2020 4:54 PM EDT us Odette Grace MD POINT OF CARE TEST ORDERABLES Fi nal Result Performing Organization Address [facility] Co de Phone Number [facility]
[address] [place] [address], [place] [phone] * (ABNORMAL) POC Glucose Once (05/11/2020 7:28 AM EDT) Glucose 158(H) 70 - 130 mg/dL 05/11/2020 7:29 AM EDT [facility] Blood 05/11/2020 7:28 AM EDT 05/11/2020 7:29 AM EDT us Odette Grace MD POINT OF CARE TEST ORDERABLES Fi nal Result Performing Organization Address [facility] Co de Phone Number [facility]
[address] [place] [address], [place] [phone] * (ABNORMAL) CBC Auto Differential (05/11/2020 7:00 AM EDT) WBC 6.60 3.40 - 10.80 10*3/mm3 05/11/2020 7:34 AM EDT [facility] RBC 2.72(L) 4.14 - 5.80 10*6/mm3 05/11/2020 7:34 AM EDT [facility] Hemoglobin 8.3(L) 13.0 - 17.7 g/dL 05/11/2020 7:34 AM EDT [facility] Hematocrit 27.2(L) 37.5 - 51.0 % [facility] MCV 100.0(H) 79.0 - 97.0 fL 05/11/2020 7[facility] MCH 30.5 26.6 - 33.0 pg 05/11/2020 7:34 AM [facility] MCHC 30.5(L) 31.5 - 35.7 g/dL 05/11/2020 7[facility] RDW 14.0 12.3 - 15.4 % 05/11/2020 7:34 AM [facility] RDW-SD 50.4 37.0 - 54.0 fl 05/11/2020 7:34 AM [facility] MPV 9.4 6.0 - 12.0 fL 05/11/2020 7:34 AM [facility] Platelets 388 140 - 450 10*3/mm3 05/11/2020 7:34 AM [facility] Neutrophil % 63.2 42.7 - 76.0 % 05/11/2020 7:34 AM [facility] Lymphocyte % 23.0 19.6 - 45.3 % 05/11/2020 7:34 AM [facility] Monocyte % 9.1 5.0 - 12.0 % 05/11/2020 7:34 AM [facility] Eosinophil % 2.6 0.3 - 6.2 % 05/11/2020 [facility] Basophil % 0.3 0.0 - 1.5 % 05/11/2020 [facility] Immature Grans % 1.8(H) 0.0 - 0.5 % 05/11/2020 7[facility] Neutrophils, Absolute 4.17 1.70 - 7.00 10*3/mm3 05/11/2020 [facility] Lymphocytes, Absolute 1.52 0.70 - 3.10 10*3/mm3 05/11/2020 7:34 AM EDT [facility] Monocytes, Absolute 0.60 0.10 - 0.90 10*3/mm3 05/11/2020 7:34 AM EDT [facility] Eosinophils, Absolute 0.17 0.00 - 0.40 10*3/mm3 05/11/2020 7:34 AM EDT [facility] Basophils, Absolute 0.02 0.00 - 0.20 10*3/mm3 05/11/2020 7:34 AM EDT [facility] Immature Grans, Absolute 0.12(H) 0.00 - 0.05 10*3/mm3 05/11/2020 7:34 AM EDT [facility] nRBC 0.0 0.0 - 0.2 /100 WBC 05/11/2020 7:34 AM EDT [facility] Blood Venipuncture / Unknown 05/11/2020 7:00 AM EDT 05/11/2020 7:20 AM EDT us Cayetano Rodriguez MD LAB BLOOD ORDERABLES Final Resul t [facility]
[address] [place] [address], * (ABNORMAL) Comprehensive Metabolic Panel (05/11/2020 7:00 AM EDT) Glucose 115(H) 65 - 99 mg/dL 05/11/2020 8:02 AM EDT [facility] BUN 65(H) 6 - 20 mg/dL 05/11/2020 8:02 AM EDT [facility] Creatinine 8.56(H) 0.76 - 1.27 mg/dL 05/11/2020 8:02 AM EDT [facility] Sodium 134(L) 136 - 145 mmol/L 05/11/2020 8:02 AM EDT [facility] Potassium 5.0 3.5 - 5.2 mmol/L 05/11/2020 8:02 AM EDT [facility] Chloride 94(L) 98 - 107 mmol/L 05/11/2020 8:02 AM [facility] CO2 20.0(L) 22.0 - 29.0 mmol/L 05/11/2020 8:02 AM [facility] Calcium 9.2 8.6 - 10.5 mg/dL 05/11/2020 8:02 AM [facility] Total Protein 6.6 6.0 - 8.5 g/dL 05/11/2020 8:02 AM [facility] Albumin 3.30(L) 3.50 - 5.20 g/dL 05/11/2020 8:02 AM [facility] ALT (SGPT) 12 1 - 41 U/L 05/11/2020 8:02 AM [facility] AST (SGOT) 14 1 - 40 U/L 05/11/2020 8:02 AM [facility] Alkaline Phosphatase 80 39 - 117 U/L 05/11/2020 8:02 AM [facility] Total Bilirubin 0.2 0.0 - 1.2 mg/dL 05/11/2020 8:02 AM [facility] eGFR Non Amer 7(L) >60 mL/min/1.7 3 05/11/2020 8:02 AM [facility] Comment:<15 Indicative of ki dney failure. eGFR Amer 05/11/2020 8:02 AM [facility] Comment:<15 Indicative of ki dney failure. Globulin 3.3 gm/dL 05/11/2020 8:02 AM [facility] A/G Ratio 1.0 g/dL 05/11/2020 8:02 AM [facility] BUN/Creatinine Ratio 7.6 7.0 - 25.0 05/11/2020 8:02 AM [facility] Anion Gap 20.0(H) 5.0 - 15.0 mmol/L 05/11/2020 8:02 AM [facility] Blood Venipuncture / Unknown 05/11/2020 7:00 AM EDT 05/11/2020 7:19 AM EDT Narrative [facility] - 05/11/2020 8:02 AM EDT GFR Normal >60 Chronic Kidney Disease <60 Kidney Failure <15 us Cayetano Rodriguez MD LAB BLOOD ORDERABLES Final Resul t Performing Organization Address [facility] Co de Phone Number [facility]
[address] [place] [address], * (ABNORMAL) C-reactive Protein (05/11/2020 7:00 AM EDT) Pathologist [facility] C-Reactive Protein 15.69(H) 0.00 - 0.50 mg/dL 05/11/2020 7:57 AM EDT [facility] Blood Venipuncture / Unknown 05/11/2020 7:00 AM EDT 05/11/2020 7:20 AM EDT us Cayetano Rodriguez MD LAB BLOOD ORDERABLES Final Resul t Performing Organization Address [facility] de Phone Number [facility]
[address] [place] [address], * Vancomycin, Random (05/11/2020 7:00 AM EDT) Pathologist [facility] Vancomycin Random 19.20 5.00 - 40.00 mcg/mL 05/11/2020 8:04 AM EDT [facility] Blood Venipuncture / Unknown 05/11/2020 7:00 AM EDT 05/11/2020 7:20 AM EDT Callie Schwartz LAB BLOOD ORDERABLES Final Resul t Performing Organization Address [facility] Co de Phone Number [facility]
[address] [place] [address], * POC Glucose Once (05/10/2020 9:00 PM EDT) Glucose 128 70 - 130 mg/dL 05/10/2020 9:02 PM EDT [facility] Blood 05/10/2020 9:00 PM EDT 05/10/2020 9:02 PM EDT us Odette Grace MD POINT OF CARE TEST ORDERABLES Fi nal Result Performing Organization Address City/[facility]/ZIP Co de Phone Number [facility]
[address] [place] [address], * POC Glucose Once (05/10/2020 4:11 PM EDT) Glucose 112 70 - 130 mg/dL 05/10/2020 4:12 PM EDT [facility] Blood 05/10/2020 4:11 PM EDT 05/10/2020 4:12 PM EDT us Odette Grace MD POINT OF CARE TEST ORDERABLES Fi nal Result Performing Organization Address [facility] Co de Phone Number [facility]
[address] [place] [address], * POC Glucose Once (05/10/2020 11:30 AM EDT) Glucose 130 70 - 130 mg/dL 05/10/2020 11:34 AM EDT [facility] Blood 05/10/2020 11:3 0 AM EDT 05/10/2020 11:34 AM EDT us Odette Grace MD POINT OF CARE TEST ORDERABLES Fi nal Result Performing Organization Address City/[facility] Co de Phone Number [facility]
[address] [place] [address], [place] [phone] * POC Glucose Once (05/10/2020 7:32 AM EDT) Glucose 116 70 - 130 mg/dL 05/10/2020 7:34 AM EDT [facility] Blood 05/10/2020 7:32 AM EDT 05/10/2020 7:34 AM EDT us Odette Grace MD POINT OF CARE TEST ORDERABLES Fi nal Result Performing Organization Address City/[facility] Co de Phone Number [facility]
[address] [place] [address], * (ABNORMAL) POC Glucose Once (05/09/2020 8:15 PM EDT) Glucose 144(H) 70 - 130 mg/dL 05/09/2020 8:16 PM EDT [facility] Blood 05/09/2020 8:15 PM EDT 05/09/2020 8:16 PM EDT us Odette Grace MD POINT OF CARE TEST ORDERABLES Fi nal Result Performing Organization Address [facility] Co de Phone Number [facility]
[address] [place] [address], [place] [phone] * (ABNORMAL) POC Glucose Once (05/09/2020 4:01 PM EDT) Glucose 133(H) 70 - 130 mg/dL 05/09/2020 4:19 PM EDT [facility] Blood 05/09/2020 4:01 PM EDT 05/09/2020 4:19 PM EDT us Odette Grace MD POINT OF CARE TEST ORDERABLES Fi nal Result Performing Organization Address [facility] Co de Phone Number [facility]
[address] [place] [address], [place] [phone] * (ABNORMAL) POC Glucose Once (05/09/2020 11:54 AM EDT) Glucose 136(H) 70 - 130 mg/dL 05/09/2020 12:06 PM EDT [facility] Blood 05/09/2020 11:5 4 AM EDT 05/09/2020 12:06 PM EDT us Odette Grace MD POINT OF CARE TEST ORDERABLES Fi nal Result Performing Organization Address City/[facility] Co de Phone Number [facility]
[address] [place] [address], [place] [phone] * POC Glucose Once (05/09/2020 7:27 AM EDT) Glucose 124 70 - 130 mg/dL 05/09/2020 7:50 AM EDT [facility] Blood 05/09/2020 7:27 AM EDT 05/09/2020 7:50 AM EDT us Odette Grace MD POINT OF CARE TEST ORDERABLES Fi nal Result Performing Organization Address [facility] Co de Phone Number [facility]
[address] [place] [address], [place] [phone] * (ABNORMAL) POC Glucose Once (05/08/2020 8:02 PM EDT) Glucose 186(H) 70 - 130 mg/dL 05/08/2020 8:03 PM EDT [facility] Blood 05/08/2020 8:02 PM EDT 05/08/2020 8:03 PM EDT us Alverto Ferrera MD POINT OF CARE TEST ORDERABLES Final Result Performing Organization Address [facility] Co de Phone Number [facility]
[address] [place] [address], [place] [phone] * POC Glucose Once (05/08/2020 4:23 PM EDT) Glucose 124 70 - 130 mg/dL 05/08/2020 4:33 PM EDT [facility] Blood 05/08/2020 4:23 PM EDT 05/08/2020 4:33 PM EDT Alverto Ferrera MD POINT OF CARE TEST ORDERABLES Final Result [facility]
[address] [place] [address], * (ABNORMAL) Manual Differential (05/08/2020 8:55 AM EDT) Neutrophil % 71.0 42.7 - 76.0 % 05/08/2020 10:16 AM EDT [facility] Lymphocyte % 13.0(L) 19.6 - 45.3 % 05/08/2020 10:16 AM EDT [facility] Monocyte % 10.0 5.0 - 12.0 % 05/08/2020 10:16 AM EDT [facility] Eosinophil % 0.0(L) 0.3 - 6.2 % 05/08/2020 10:16 AM EDT [facility] Basophil % 0.0 0.0 - 1.5 % 05/08/2020 10:16 AM EDT [facility] Bands % 3.0 0.0 - 5.0 % 05/08/2020 10:16 AM EDT [facility] Metamyelocyte % 1.0(H) 0.0 - 0.0 % 05/08/2020 10:16 AM EDT [facility] Myelocyte % 2.0(H) 0.0 - 0.0 % 05/08/2020 10:16 AM EDT [facility] Neutrophils Absolute 4.60 1.70 - 7.00 10*3/mm3 05/08/2020 10:16 AM EDT [facility] Lymphocytes Absolute 0.81 0.70 - 3.10 10*3/mm3 05/08/2020 10:16 AM EDT [facility] Monocytes Absolute 0.62 0.10 - 0.90 10*3/mm3 05/08/2020 10:16 AM EDT [facility] Eosinophils Absolute 0.00 0.00 - 0.40 10*3/mm3 05/08/2020 10:16 AM EDT [facility] Basophils Absolute 0.00 0.00 - 0.20 10*3/mm3 05/08/2020 10:16 AM EDT [facility] RBC Morphology Normal Normal 05/08/2020 10:16 AM EDT [facility] WBC Morphology Normal Normal 05/08/2020 10:16 AM EDT [facility] Platelet Morphology Normal Normal 05/08/2020 10:16 AM EDT [facility] Blood Venipuncture / Unknown 05/08/2020 8:55 AM EDT 05/08/2020 9:04 AM EDT us Cayetano Rodriguez MD LAB BLOOD ORDERABLES Final Resul t [facility]
[address] [place] [address], * (ABNORMAL) CBC Auto Differential (05/08/2020 8:55 AM EDT) WBC 6.21 3.40 - 10.80 10*3/mm3 05/08/2020 10:16 AM EDT [facility] RBC 2.52(L) 4.14 - 5.80 10*6/mm3 05/08/2020 10:16 AM EDT [facility] Hemoglobin 7.6(L) 13.0 - 17.7 g/dL 05/08/2020 10:16 AM EDT [facility] Hematocrit 25.0(L) 37.5 - 51.0 % 05/08/2020 10:16 AM EDT [facility] MCV 99.2(H) 79.0 - 97.0 fL 05/08/2020 10:16 AM EDT [facility] MCH 30.2 26.6 - 33.0 pg 05/08/2020 10:16 AM EDT [facility] MCHC 30.4(L) 31.5 - 35.7 g/dL 05/08/2020 10:16 AM EDT [facility] RDW 14.2 12.3 - 15.4 % 05/08/2020 10:16 AM EDT [facility] RDW-SD 51.2 37.0 - 54.0 fl 05/08/2020 10:16 AM EDT [facility] MPV 9.7 6.0 - 12.0 fL 05/08/2020 10:16 AM EDT [facility] Platelets 447 140 - 450 10*3/mm3 05/08/2020 10:16 AM EDT [facility] Blood Venipuncture / Unknown 05/08/2020 8:55 AM EDT 05/08/2020 9:04 AM EDT us Cayetano Rodriguez MD LAB BLOOD ORDERABLES Final Resul t Performing Organization Address City/[facility]/ZIP Co de Phone Number [facility]
[address] [place] [address], * CK (05/08/2020 8:55 AM EDT) Creatine Kinase 49 20 - 200 U/L 05/08/2020 9:30 AM EDT [facility] Blood Venipuncture / Unknown 05/08/2020 8:55 AM EDT 05/08/2020 9:03 AM EDT us Cayetano Rodriguez MD LAB BLOOD ORDERABLES Final Resul t [facility]
[address] [place] [address], * Vancomycin, Random (05/08/2020 8:55 AM EDT) Vancomycin Random 21.30 5.00 - 40.00 mcg/mL 05/08/2020 9:32 AM EDT [facility] Blood Venipuncture / Unknown 05/08/2020 8:55 AM EDT 05/08/2020 9:03 AM EDT [place] [facility] LAB BLOOD ORDERABLES Final Result Performing Organization Address City/[facility]/ZIP Co de Phone Number [facility]
[address] [place] [address], * (ABNORMAL) C-reactive Protein (05/08/2020 8:55 AM EDT) C-Reactive Protein 12.16(H) 0.00 - 0.50 mg/dL 05/08/2020 9:29 AM EDT [facility] Blood Venipuncture / Unknown 05/08/2020 8:55 AM EDT 05/08/2020 9:03 AM EDT Cayetano Rodriguez MD LAB BLOOD ORDERABLES Final Resul t Performing Organization Address [facility] Co de Phone Number [facility]
[address] [place] [address], * (ABNORMAL) POC Glucose Once (05/08/2020 7:22 AM EDT) Glucose 161(H) 70 - 130 mg/dL 05/08/2020 7:39 AM EDT [facility] Blood 05/08/2020 7:22 AM EDT 05/08/2020 7:39 AM EDT Alvetro Ferrera MD POINT OF CARE TEST ORDERABLES Final Result Performing Organization Address [facility] Co de Phone Number [facility]
[address] [place] [address], * (ABNORMAL) POC Glucose Once (05/07/2020 8:03 PM EDT) Glucose 212(H) 70 - 130 mg/dL 05/07/2020 8:05 PM EDT [facility] Blood 05/07/2020 8:03 PM EDT 05/07/2020 8:05 PM EDT us Alverto Ferrera MD POINT OF CARE TEST ORDERABLES Final Result Performing Organization Address [facility] Phone Number [facility]
[address] [place] [address], [place] [phone] * (ABNORMAL) POC Glucose Once (05/07/2020 4:08 PM EDT) Glucose 180(H) 70 - 130 mg/dL 05/07/2020 4:16 PM EDT [facility] Blood 05/07/2020 4:08 PM EDT 05/07/2020 4:16 PM EDT us Alverto Ferrera MD POINT OF CARE TEST ORDERABLES Final Result Performing Organization Address [facility] Phone Number [facility]
[address] [place] [address], [place] [phone] * (ABNORMAL) POC Glucose Once (05/07/2020 11:07 AM EDT) Glucose 273(H) 70 - 130 mg/dL 05/07/2020 11:34 AM EDT [facility] Blood 05/07/2020 11:0 7 AM EDT 05/07/2020 11:34 AM EDT us Alverto Ferrera MD POINT OF CARE TEST ORDERABLES Final Result Performing Organization Address [facility] de Phone Number [facility]
[address] [place] [address], [place] [phone] * (ABNORMAL) POC Glucose Once (05/07/2020 7:38 AM EDT) Glucose 144(H) 70 - 130 mg/dL 05/07/2020 7:40 AM EDT [facility] Blood 05/07/2020 7:38 AM EDT 05/07/2020 7:40 AM EDT us Alverto Ferrera MD POINT OF CARE TEST ORDERABLES Final Result [facility]
[address] [place] [address], * (ABNORMAL) Cyclosporine Level (05/07/2020 7:38 AM EDT) Cyclosporine <25(L) 100 - 400 ng/mL 05/11/2020 [...] Mass Spectrometry (LC-MS/MS) please use test code 330312. ??For testing performed by Immunoassay, please use test code 906752. This test was developed and its performance characteristics determined by [employer]. It has not been cleared or approved by the Food and Drug Administration. Blood Venipuncture / Unknown 05/07/2020 7:38 AM EDT 05/07/2020 7:50 AM EDT Narrative [facility] - 05/11/2020 3:08 PM EDT Performed at: ??01 - [facility] [address] ??[id number] Block Hacker: Jeny Pereyra MD, Phone: ??[phone] us Karishma Hodge MD LAB BLOOD ORDERABLES Yoselin l Result Performing Organization Address [facility]/ZIP Co de Phone Number [facility] [address] [place] [address], * Ammonia (05/07/2020 7:38 AM EDT) Ammonia 18 16 - 60 umol/L 05/07/2020 8:34 AM EDT [facility] Blood Venipuncture / Unknown 05/07/2020 7:38 AM EDT 05/07/2020 7:49 AM EDT us Alverto Ferrera MD LAB BLOOD ORDERABLES Final Res ult Performing Organization Address [facility] de Phone Number [facility]
[address] [place] [address], * (ABNORMAL) Protime-INR (05/07/2020 7:38 AM EDT) Protime 15.8(H) 11.5 - 14.0 Seconds 05/07/2020 8:15 AM EDT [facility] INR 1.30(H) 0.85 - 1.16 05/07/2020 8:15 AM EDT [facility] Blood Venipuncture / Unknown 05/07/2020 7:38 AM EDT 05/07/2020 7:50 AM EDT us Alverto Ferrera MD LAB BLOOD ORDERABLES Final Res ult Performing Organization Address [facility] Co de Phone Number [facility]
[address] [place] [address], [place] [phone] * (ABNORMAL) CBC (No Diff) (05/07/2020 7:38 AM EDT) WBC 9.30 3.40 - 10.80 10*3/mm3 05/07/2020 8:01 AM EDT [facility] RBC 2.58(L) 4.14 - 5.80 10*6/mm3 05/07/2020 8:01 AM EDT [facility] Hemoglobin 7.9(L) 13.0 - 17.7 g/dL 05/07/2020 8:01 AM EDT [facility] Hematocrit 25.3(L) 37.5 - 51.0 % 05/07/2020 8:01 AM EDT [facility] MCV 98.1(H) 79.0 - 97.0 fL 05/07/2020 8:01 AM EDT [facility] MCH 30.6 26.6 - 33.0 pg 05/07/2020 8:01 AM EDT [facility] MCHC 31.2(L) 31.5 - 35.7 g/dL 05/07/2020 8:01 AM EDT [facility] RDW 14.3 12.3 - 15.4 % 05/07/2020 8:01 AM EDT [facility] RDW-SD 49.7 37.0 - 54.0 fl 05/07/2020 8:01 AM EDT [facility] MPV 9.6 6.0 - 12.0 fL 05/07/2020 8:01 AM EDT [facility] Platelets 478(H) 140 - 450 10*3/mm3 05/07/2020 8:01 AM EDT [facility] Blood Venipuncture / Unknown 05/07/2020 7:38 AM EDT 05/07/2020 7:54 AM EDT us Alverto Ferrera MD LAB BLOOD ORDERABLES Final Res ult [facility]
[address] [place] [address], * (ABNORMAL) Comprehensive Metabolic Panel (05/07/2020 7:38 AM EDT) Glucose 140(H) 65 - 99 mg/dL 05/07/2020 8:37 AM EDT [facility] BUN 39(H) 6 - 20 mg/dL 05/07/2020 8:37 AM [facility] Creatinine 7.56(H) 0.76 - 1.27 mg/dL 05/07/2020 8:37 AM T [facility] Sodium 133(L) 136 - 145 mmol/L 05/07/2020 8:37 AM T [facility] Potassium 3.7 3.5 - 5.2 mmol/L 05/07/2020 8:37 AM T [facility] Chloride 96(L) 98 - 107 mmol/L 05/07/2020 8:37 AM [facility] CO2 21.0(L) 22.0 - 29.0 mmol/L 05/07/2020 8:37 AM [facility] Calcium 8.9 8.6 - 10.5 mg/dL 05/07/2020 8:37 AM [facility] Total Protein 6.2 6.0 - 8.5 g/dL 05/07/2020 8:37 AM [facility] Albumin 3.00(L) 3.50 - 5.20 g/dL 05/07/2020 8:37 AM [facility] ALT (SGPT) 14 1 - 41 U/L 05/07/2020 8:37 AM [facility] AST (SGOT) 13 1 - 40 U/L 05/07/2020 8:37 AM [facility] Alkaline Phosphatase 66 39 - 117 U/L 05/07/2020 8:37 AM T [facility] Total Bilirubin <0.2 0.0 - 1.2 mg/dL 05/07/2020 8:37 AM [facility] eGFR Non Amer 8(L) >60 mL/min/1.7 3 05/07/2020 8:37 AM T [facility] Comment:<15 Indicative of ki dney failure. eGFR Amer 05/07/2020 8:37 AM EDT [facility] Comment:<15 Indicative of ki dney failure. Globulin 3.2 gm/dL 05/07/2020 8:37 AM EDT [facility] A/G Ratio 0.9 g/dL 05/07/2020 8:37 AM EDT [facility] BUN/Creatinine Ratio 5.2(L) 7.0 - 25.0 05/07/2020 8:37 AM EDT [facility] Anion Gap 16.0(H) 5.0 - 15.0 mmol/L 05/07/2020 8:37 AM EDT [facility] Blood Venipuncture / Unknown 05/07/2020 7:38 AM EDT 05/07/2020 7:50 AM EDT Narrative [facility] - 05/07/2020 8:37 AM EDT GFR Normal >60 Chronic Kidney Disease <60 Kidney Failure <15 us Alverto Ferrera MD LAB BLOOD ORDERABLES Final Res ult [facility]
[address] [place] [address], * (ABNORMAL) POC Glucose Once (05/06/2020 9:52 PM EDT) Glucose 171(H) 70 - 130 mg/dL 05/06/2020 10:01 PM EDT [facility] Blood 05/06/2020 9:52 PM EDT 05/06/2020 10:01 PM EDT us Alverto Ferrera MD POINT OF CARE TEST ORDERABLES Final Result [facility]
[address] [place] [address], [place] [phone] * (ABNORMAL) POC Glucose Once (05/06/2020 4:04 PM EDT) Glucose 268(H) 70 - 130 mg/dL 05/06/2020 4:16 PM EDT [facility] Blood 05/06/2020 4:04 PM EDT 05/06/2020 4:16 PM EDT us Alverto Ferrera MD POINT OF CARE TEST ORDERABLES Final Result Performing Organization Address City/[facility]/ZIP Co de Phone Number [facility]
[address] [place] [address], * (ABNORMAL) POC Glucose Once (05/06/2020 1:09 PM EDT) Glucose 157(H) 70 - 130 mg/dL 05/06/2020 1:20 PM EDT [facility] Blood 05/06/2020 1:09 PM EDT 05/06/2020 1:20 PM EDT us Alverto Ferrera MD POINT OF CARE TEST ORDERABLES Final Result Performing Organization Address [facility]/ZIP Co de Phone Number [facility]
[address] [place] [address], * (ABNORMAL) C-reactive Protein (05/06/2020 5:57 AM EDT) C-Reactive Protein 18.73(H) 0.00 - 0.50 mg/dL 05/06/2020 8:45 AM EDT [facility] Blood Venipuncture / Unknown 05/06/2020 5:57 AM EDT 05/06/2020 8:22 AM EDT us Cayetano Rodriguez MD LAB BLOOD ORDERABLES Final Resul t Performing Organization Address City/[facility]/ZIP Co de Phone Number [facility]
[address] [place] [address], * (ABNORMAL) Sedimentation Rate (05/06/2020 5:57 AM EDT) Sed Rate 44(H) 0 - 15 mm/hr 05/06/2020 8:29 AM EDT [facility] Blood Venipuncture / Unknown 05/06/2020 5:57 AM EDT 05/06/2020 8:21 AM EDT us Cayetano Rodriguez MD LAB BLOOD ORDERABLES Final Resul t Performing Organization Address City/[facility]/ZIP Co de Phone Number [facility] LABORATORY
[address] [place] [address], * Vancomycin, Random (05/06/2020 5:57 AM EDT) Pathologist [facility] Vancomycin Random 23.20 5.00 - 40.00 mcg/mL 05/06/2020 8:45 AM EDT [facility] Blood Venipuncture / Unknown 05/06/2020 5:57 AM EDT 05/06/2020 8:22 AM EDT us Dewey Betancourt MD LAB BLOOD ORDERABLES Final Res ult Performing Organization Address [facility] de Phone Number [facility]
[address] [place] [address], * (ABNORMAL) POC Glucose Once (05/05/2020 9:30 PM EDT) Glucose 177(H) 70 - 130 mg/dL 05/05/2020 9:31 PM EDT [facility] Blood 05/05/2020 9:30 PM EDT 05/05/2020 9:31 PM EDT us Odette Grace MD POINT OF CARE TEST ORDERABLES Fi nal Result Performing Organization Address [facility] Co de Phone Number [facility]
[address] [place] [address], * (ABNORMAL) POC Glucose Once (05/05/2020 5:13 PM EDT) Glucose 183(H) 70 - 130 mg/dL 05/05/2020 5:15 PM EDT [facility] Blood 05/05/2020 5:13 PM EDT 05/05/2020 5:15 PM EDT us Odette Grace MD POINT OF CARE TEST ORDERABLES Fi nal Result Performing Organization Address City/[facility]/ZIP Co de Phone Number [facility]
[address] [place] [address], [place] [phone] * (ABNORMAL) POC Glucose Once (05/05/2020 12:28 PM EDT) Glucose 162(H) 70 - 130 mg/dL 05/05/2020 12:30 PM EDT [facility] Blood 05/05/2020 12:2 8 PM EDT 05/05/2020 12:30 PM EDT us Odette Grace MD POINT OF CARE TEST ORDERABLES Fi nal Result Performing Organization Address [facility] Co de Phone Number [facility]
[address] [place] [address], [place] [phone] * (ABNORMAL) CBC (No Diff) (05/05/2020 11:42 AM EDT) WBC 10.91(H) 3.40 - 10.80 10*3/mm3 05/05/2020 12:11 PM EDT [facility] RBC 2.65(L) 4.14 - 5.80 10*6/mm3 05/05/2020 12:11 PM EDT [facility] Hemoglobin 8.0(L) 13.0 - 17.7 g/dL 05/05/2020 12:11 PM EDT [facility] Hematocrit 26.8(L) 37.5 - 51.0 % 05/05/2020 12:11 PM EDT [facility] MCV 101.1(H) 79.0 - 97.0 fL 05/05/2020 12:11 PM EDT [facility] MCH 30.2 26.6 - 33.0 pg 05/05/2020 12:11 PM EDT [facility] MCHC 29.9(L) 31.5 - 35.7 g/dL 05/05/2020 12:11 PM EDT [facility] RDW 14.7 12.3 - 15.4 % 05/05/2020 12:11 PM EDT [facility] RDW-SD 53.6 37.0 - 54.0 fl 05/05/2020 12:11 PM EDT [facility] MPV 9.8 6.0 - 12.0 fL 05/05/2020 12:11 PM EDT [facility] Platelets 460(H) 140 - 450 10*3/mm3 05/05/2020 12:11 PM EDT [facility] Blood Venipuncture / Unknown 05/05/2020 11:42 AM EDT 05/05/2020 12:01 PM EDT Dewey Betancourt MD LAB BLOOD ORDERABLES Final Res ult [facility]
[address] [place] [address], [place] [phone] * (ABNORMAL) POC Glucose Once (05/05/2020 8:56 AM EDT) Glucose 131(H) 70 - 130 mg/dL 05/05/2020 8:58 AM EDT [facility] Blood 05/05/2020 8:56 AM EDT 05/05/2020 8:58 AM EDT us Odette Grace MD POINT OF CARE TEST ORDERABLES Fi nal Result Performing Organization Address City/[facility]/ZIP Co de Phone Number [facility]
[address] [place] [address], [place] [phone] * (ABNORMAL) POC Glucose Once (05/05/2020 8:22 AM EDT) Glucose 136(H) 70 - 130 mg/dL 05/05/2020 8:23 AM EDT [facility] Blood 05/05/2020 8:22 AM EDT 05/05/2020 8:23 AM EDT us Odette Grace MD POINT OF CARE TEST ORDERABLES Fi nal Result Performing Organization Address City/[facility]/ZIP Co de Phone Number [facility]
[address] [place] [address], * (ABNORMAL) POC Glucose Once (05/04/2020 10:19 PM EDT) Glucose 146(H) 70 - 130 mg/dL 05/04/2020 10:20 PM EDT [facility] Blood 05/04/2020 10:1 9 PM EDT 05/04/2020 10:20 PM EDT us Odette Grace MD POINT OF CARE TEST ORDERABLES Fi nal Result Performing Organization Address City/[facility]/ZIP Co de Phone Number [facility]
[address] [place] [address], * UPPER GI ENDOSCOPY (05/04/2020 6:38 PM EDT) us Dewey Betancourt MD INTERFACE NEEDS Final Result * (ABNORMAL) POC Glucose Once (05/04/2020 6:07 PM EDT) Glucose 150(H) 70 - 130 mg/dL 05/04/2020 6:08 PM EDT [facility] Blood 05/04/2020 6:07 PM EDT 05/04/2020 6:08 PM EDT Odette Grace MD POINT OF CARE TEST ORDERABLES Fi nal Result Performing Organization Address [facility] de Phone Number [facility]
[address] [place] [address], * (ABNORMAL) Potassium (05/04/2020 1:19 PM EDT) Potassium 3.3(L) 3.5 - 5.2 mmol/L 05/04/2020 2:01 PM EDT [facility] Blood Venipuncture / Unknown 05/04/2020 1:19 PM EDT 05/04/2020 1:45 PM EDT Celso Kim MD LAB BLOOD ORDERABLES Final Resu lt Performing Organization Address [facility] de Phone Number [facility]
[address] [place] [address], * (ABNORMAL) POC Glucose Once (05/04/2020 12:38 PM EDT) Glucose 150(H) 70 - 130 mg/dL 05/04/2020 12:40 PM EDT [facility] Blood 05/04/2020 12:3 8 PM EDT 05/04/2020 12:40 PM EDT Odette Grace MD POINT OF CARE TEST ORDERABLES Fi nal Result Performing Organization Address [facility] Co de Phone Number [facility]
[address] [place] [address], * Magnesium (05/04/2020 8:02 AM EDT) Magnesium 2.4 1.6 - 2.6 mg/dL 05/04/2020 9:33 AM EDT [facility] Blood Venipuncture / Unknown 05/04/2020 8:02 AM EDT 05/04/2020 9:04 AM EDT us Odette Grace MD LAB BLOOD ORDERABLES Final Resul t [facility]
[address] [place] [address], * (ABNORMAL) CBC (No Diff) (05/04/2020 8:02 AM EDT) WBC 11.93(H) 3.40 - 10.80 10*3/mm3 05/04/2020 9:19 AM EDT [facility] RBC 2.47(L) 4.14 - 5.80 10*6/mm3 05/04/2020 9:19 AM EDT [facility] Hemoglobin 7.5(L) 13.0 - 17.7 g/dL 05/04/2020 9:19 AM EDT [facility] Hematocrit 24.2(L) 37.5 - 51.0 % 05/04/2020 9:19 AM EDT [facility] MCV 98.0(H) 79.0 - 97.0 fL 05/04/2020 9:19 AM EDT [facility] MCH 30.4 26.6 - 33.0 pg 05/04/2020 9:19 AM EDT [facility] MCHC 31.0(L) 31.5 - 35.7 g/dL 05/04/2020 9:19 AM EDT [facility] RDW 15.0 12.3 - 15.4 % 05/04/2020 9:19 AM EDT [facility] RDW-SD 52.7 37.0 - 54.0 fl 05/04/2020 9:19 AM EDT [facility] MPV 9.8 6.0 - 12.0 fL 05/04/2020 9:19 AM EDT [facility] Platelets 433 140 - 450 10*3/mm3 05/04/2020 9:19 AM EDT [facility] Blood Venipuncture / Unknown 05/04/2020 8:02 AM EDT 05/04/2020 9:05 AM EDT us Odette Grace MD LAB BLOOD ORDERABLES Final Resul t [facility]
[address] [place] [address], * (ABNORMAL) Basic Metabolic Panel (05/04/2020 8:02 AM EDT) Glucose 123(H) 65 - 99 mg/dL 05/04/2020 9:33 AM EDT [facility] BUN 67(H) 6 - 20 mg/dL 05/04/2020 9:33 AM EDT [facility] Creatinine 11.30(H) 0.76 - 1.27 mg/dL 05/04/2020 9:33 AM EDT [facility] Sodium 134(L) 136 - 145 mmol/L 05/04/2020 9:33 AM EDT [facility] Potassium 3.8 3.5 - 5.2 mmol/L 05/04/2020 9:33 AM EDT [facility] Comment:Slight hemolysis det ected by analyzer. Results may be affected. Chloride 96(L) 98 - 107 mmol/L 05/04/2020 9:33 AM EDT [facility] CO2 18.0(L) 22.0 - 29.0 mmol/L 05/04/2020 9:33 AM EDT [facility] Calcium 9.1 8.6 - 10.5 mg/dL 05/04/2020 9:33 AM EDT [facility] eGFR Amer 05/04/2020 9:33 AM EDT [facility] Comment:<15 Indicative of ki dney failure. eGFR Non Amer 5(L) >60 mL/min/1.7 3 05/04/2020 9:33 AM EDT [facility] Comment:<15 Indicative of ki dney failure. BUN/Creatinine Ratio 5.9(L) 7.0 - 25.0 05/04/2020 9:33 AM EDT [facility] Anion Gap 20.0(H) 5.0 - 15.0 mmol/L 05/04/2020 9:33 AM EDT [facility] Blood Venipuncture / Unknown 05/04/2020 8:02 AM EDT 05/04/2020 9:04 AM EDT Narrative [facility] - 05/04/2020 9:33 AM EDT GFR Normal >60 Chronic Kidney Disease <60 Kidney Failure <15 Hilton Hamm MD LAB BLOOD ORDERABLES F inal Result Performing Organization Address City/[facility]/ZIP Co de Phone Number [facility]
[address] [place] [address], * POC Glucose Once (05/04/2020 7:41 AM EDT) Glucose 118 70 - 130 mg/dL 05/04/2020 7:44 AM EDT [facility] Blood 05/04/2020 7:41 AM EDT 05/04/2020 7:44 AM EDT Odette Grace MD POINT OF CARE TEST ORDERABLES Fi nal Result Performing Organization Address [facility]/ZIP Co de Phone Number [facility]
[address] [place] [address], * (ABNORMAL) Hemoglobin & Hematocrit, Blood (05/03/2020 11:39 PM EDT) Hemoglobin 7.5(L) 13.0 - 17.7 g/dL 05/04/2020 12:22 AM EDT [facility] Hematocrit 24.1(L) 37.5 - 51.0 % 05/04/2020 12:22 AM EDT [facility] Blood Venipuncture / Unknown 05/03/2020 11:39 PM EDT 05/04/2020 12:18 AM EDT us Odette Grace MD LAB BLOOD ORDERABLES Final Resul t Performing Organization Address [facility] de Phone Number [facility]
[address] [place] [address], * (ABNORMAL) POC Glucose Once (05/03/2020 9:26 PM EDT) Glucose 176(H) 70 - 130 mg/dL 05/03/2020 9:27 PM EDT [facility] Blood 05/03/2020 9:26 PM EDT 05/03/2020 9:27 PM EDT us Odette Grace MD POINT OF CARE TEST ORDERABLES Fi nal Result Performing Organization Address [facility] Co de Phone Number [facility]
[address] [place] [address], * (ABNORMAL) POC Glucose Once (05/03/2020 4:34 PM EDT) Glucose 167(H) 70 - 130 mg/dL 05/03/2020 4:37 PM EDT [facility] Blood 05/03/2020 4:34 PM EDT 05/03/2020 4:37 PM EDT us Odette Grace MD POINT OF CARE TEST ORDERABLES Fi nal Result Performing Organization Address [facility] de Phone Number [facility]
[address] [place] [address], * (ABNORMAL) Hemoglobin & Hematocrit, Blood (05/03/2020 4:16 PM EDT) Hemoglobin 7.9(L) 13.0 - 17.7 g/dL 05/03/2020 4:43 PM EDT [facility] Hematocrit 24.8(L) 37.5 - 51.0 % 05/03/2020 4:43 PM EDT [facility] Blood Venipuncture / Unknown 05/03/2020 4:16 PM EDT 05/03/2020 4:41 PM EDT us Odette Grace MD LAB BLOOD ORDERABLES Final Resul t Performing Organization Address [facility] de Phone Number [facility]
[address] [place] [address], * (ABNORMAL) POC Glucose Once (05/03/2020 11:14 AM EDT) Glucose 251(H) 70 - 130 mg/dL 05/03/2020 11:16 AM EDT [facility] Blood 05/03/2020 11:1 4 AM EDT 05/03/2020 11:16 AM EDT us Odette Grace MD POINT OF CARE TEST ORDERABLES Fi nal Result Performing Organization Address [facility] Phone Number [facility]
[address] [place] [address], [place] [phone] * Antibody Identification (05/03/2020 9:56 AM EDT) Anti-C ANTI-C 05/03/2020 1:58 PM EDT [facility] Anti-D ANTI-D 05/03/2020 1:58 PM EDT [facility] Blood Venipuncture / Unknown 05/03/2020 9:56 AM EDT 05/03/2020 10:35 AM EDT us Nicole Diggs APRN BLOOD BANK TEST ORDERABLES Fi nal Result Performing Organization Address [facility] de Phone Number [facility]
[address] [place] [address], * Type & Screen (05/03/2020 9:56 AM EDT) ABO Type O 05/03/2020 1:56 PM EDT [facility] RH type Negative 05/03/2020 1:56 PM EDT [facility] Antibody Screen Positive 05/03/2020 1:56 PM EDT [facility] T&S Expiration Date 05/06/2020 11:59:59 PM 05/03/2020 1:56 PM EDT [facility] Blood Venipuncture / Unknown 05/03/2020 9:56 AM EDT 05/03/2020 10:35 AM EDT Nicole Dontae COLIN BLOOD BANK TEST ORDERABLES Ed ited Result - Final [facility]
[address] [place] [address], * (ABNORMAL) CBC (No Diff) (05/03/2020 9:55 AM EDT) WBC 9.65 3.40 - 10.80 10*3/mm3 05/03/2020 10:46 AM EDT [facility] RBC 2.42(L) 4.14 - 5.80 10*6/mm3 05/03/2020 10:46 AM EDT [facility] Hemoglobin 7.6(L) 13.0 - 17.7 g/dL 05/03/2020 10:46 AM EDT [facility] Hematocrit 24.0(L) 37.5 - 51.0 % 05/03/2020 10:46 AM EDT [facility] MCV 99.2(H) 79.0 - 97.0 fL 05/03/2020 10:46 AM EDT [facility] MCH 31.4 26.6 - 33.0 pg 05/03/2020 10:46 AM EDT [facility] MCHC 31.7 31.5 - 35.7 g/dL 05/03/2020 10:46 AM EDT [facility] RDW 15.0 12.3 - 15.4 % 05/03/2020 10:46 AM EDT [facility] RDW-SD 53.3 37.0 - 54.0 fl 05/03/2020 10:46 AM EDT [facility] MPV 9.5 6.0 - 12.0 fL 05/03/2020 10:46 AM EDT [facility] Platelets 372 140 - 450 10*3/mm3 05/03/2020 10:46 AM EDT [facility] Blood Venipuncture / Unknown 05/03/2020 9:55 AM EDT 05/03/2020 10:41 AM EDT Nicole Diggs APRN LAB BLOOD ORDERABLES Final Re sult Performing Organization Address City/[facility]/ZIP Co de Phone Number [facility]
[address] [place] [address], * (ABNORMAL) POC Glucose Once (05/03/2020 7:19 AM EDT) Glucose 184(H) 70 - 130 mg/dL 05/03/2020 7:21 AM EDT [facility] Blood 05/03/2020 7:19 AM EDT 05/03/2020 7:21 AM EDT Odette Grace MD POINT OF CARE TEST ORDERABLES Fi nal Result Performing Organization Address [facility] Co de Phone Number [facility]
[address] [place] [address], [place] [phone] * ECG 12 Lead (05/03/2020 5:07 AM EDT) 05/03/2020 5:07 AM EDT 05/05/2020 9:06 AM EDT Narrative [facility] ECG - 05/05/2020 9:06 AM EDT Test [...] - 130 mg/dL 05/02/2020 8:28 PM EDT [facility] Blood 05/02/2020 8:25 PM EDT 05/02/2020 8:28 PM EDT Odette Grace MD POINT OF CARE TEST ORDERABLES Fi nal Result [facility]
[address] [place] [address], [place] [phone] * (ABNORMAL) POC Glucose Once (05/02/2020 5:20 PM EDT) Glucose 208(H) 70 - 130 mg/dL 05/02/2020 5:32 PM EDT [facility] Blood 05/02/2020 5:20 PM EDT 05/02/2020 5:32 PM EDT Odette Grace MD POINT OF CARE TEST ORDERABLES Fi nal Result [facility]
[address] [place] [address], * (ABNORMAL) Occult Blood X 1, Stool - Stool, Per Rectum (05/02/2020 12:49 PM EDT) Fecal Occult Blood Positive( A) Negative DISK DIFFUSION 05/02/2020 1:50 PM EDT [facility] Stool Specimen from rectum / Unknown Collection / Unknown 05/02/2020 12:49 PM EDT 05/02/2020 1:01 PM EDT Odette Grace MD BODY FLUIDS AND STOOLS ORDERABLE S Final Result [facility] [place] [address], * Prepare RBC, 2 Units (05/02/2020 12:10 PM EDT) Product Code [id number] [facility] Unit Number [id number] [facility] UNIT ABO O [facility] UNIT RH NEG [facility] Crossmatch Interpretation Compatible [facility] Dispense Status PT [facility] Blood Expiration Date [facility] Blood Type Barcode 9500 [facility] Product Code [id number] [facility] Unit Number [id number] [facility] UNIT ABO O [facility] UNIT RH NEG [facility] Crossmatch Interpretation Compatible [facility] Dispense Status PT [facility] Blood Expiration Date [id number] [facility] Blood Type Barcode 9500 [facility] Other Topography unknown / Unknown 04/30/2020 2:32 PM EDT Hilton Hamm MD BLOOD BANK PRODUCT ORD ERABLES Edited Result - Final [facility]
[address] [place] [address], * (ABNORMAL) POC Glucose Once (05/02/2020 11:52 AM EDT) Glucose 259(H) 70 - 130 mg/dL 05/02/2020 12:11 PM EDT [facility] Blood 05/02/2020 11:5 2 AM EDT 05/02/2020 12:11 PM EDT Odette Grace MD POINT OF CARE TEST ORDERABLES Fi nal Result Performing Organization Address City/[facility]/ZIP Co de Phone Number [facility]
[address] [place] [address], [place] [phone] * (ABNORMAL) POC Glucose Once (05/02/2020 8:10 AM EDT) Glucose 167(H) 70 - 130 mg/dL 05/02/2020 8:21 AM EDT [facility] Blood 05/02/2020 8:10 AM EDT 05/02/2020 8:21 AM EDT Odette Grace MD POINT OF CARE TEST ORDERABLES Fi nal Result Performing Organization Address City/[facility]/ZIP Co de Phone Number [facility]
[address] [place] [address], [place] [phone] * (ABNORMAL) POC Glucose Once (05/01/2020 8:56 PM EDT) Glucose 239(H) 70 - 130 mg/dL 05/01/2020 9:02 PM EDT [facility] Blood 05/01/2020 8:56 PM EDT 05/01/2020 9:02 PM EDT us Odette Grace MD POINT OF CARE TEST ORDERABLES Fi nal Result [facility]
[address] [place] [address], * (ABNORMAL) POC Glucose Once (05/01/2020 3:56 PM EDT) Glucose 234(H) 70 - 130 mg/dL 05/01/2020 3:58 PM EDT [facility] Blood 05/01/2020 3:56 PM EDT 05/01/2020 3:58 PM EDT us Odette Grace MD POINT OF CARE TEST ORDERABLES Fi nal Result Performing Organization Address City/[facility]/ZIP Co de Phone Number [facility]
[address] [place] [address], [place] [phone] * (ABNORMAL) POC Glucose Once (05/01/2020 11:42 AM EDT) Glucose 177(H) 70 - 130 mg/dL 05/01/2020 11:56 AM EDT [facility] Blood 05/01/2020 11:4 2 AM EDT 05/01/2020 11:55 AM EDT us Odette Grace MD POINT OF CARE TEST ORDERABLES Fi nal Result [facility]
[address] [place] [address], [place] [phone] * Transfuse RBC Infuse Each Unit Over: 3.5H (05/01/2020 10:57 AM EDT) Odette Grace MD BLOOD TRANSFUSION ORDERABLES Fin al Result * Transfuse RBC, 1 Units Infuse Each Unit Over: 3.5H (05/01/2020 10:57 AM EDT) Odette Grace MD BLOOD TRANSFUSION ORDERABLES Fin al Result * Transfuse RBC Infuse Each Unit Over: 3.5H (05/01/2020 10:23 AM EDT) Dewey Betancourt MD BLOOD TRANSFUSION ORDERABLES F inal Result * Vancomycin, Random (05/01/2020 9:07 AM EDT) Pathologist [facility] Vancomycin Random 21.60 5.00 - 40.00 mcg/mL 05/01/2020 11:16 AM EDT [facility] Blood Line / Unknown 05/01/2020 9: 07 AM EDT 05/01/2020 9:17 AM EDT Germán Resendiz [facility] LAB BLOOD ORDERABLES Final Resul t [facility]
[address] [place] [address], * (ABNORMAL) Basic Metabolic Panel (05/01/2020 9:07 AM EDT) Glucose 195(H) 65 - 99 mg/dL 05/01/2020 9:43 AM EDT [facility] BUN 81(H) 6 - 20 mg/dL 05/01/2020 9:43 AM EDT [facility] Creatinine 10.03(H) 0.76 - 1.27 mg/dL 05/01/2020 9:43 AM EDT [facility] Sodium 134(L) 136 - 145 mmol/L 05/01/2020 9:43 AM EDT [facility] Potassium 4.1 3.5 - 5.2 mmol/L 05/01/2020 9:43 AM EDT [facility] Chloride 95(L) 98 - 107 mmol/L 05/01/2020 9:43 AM EDT [facility] CO2 20.0(L) 22.0 - 29.0 mmol/L 05/01/2020 9:43 AM EDT [facility] Calcium 8.6 8.6 - 10.5 mg/dL 05/01/2020 9:43 AM EDT [facility] eGFR Amer 05/01/2020 9:43 AM EDT [facility] Comment:<15 Indicative of ki dney failure. eGFR Non Amer 6(L) >60 mL/min/1.7 3 05/01/2020 9:43 AM EDT [facility] Comment:<15 Indicative of ki dney failure. BUN/Creatinine Ratio 8.1 7.0 - 25.0 05/01/2020 9:43 AM EDT [facility] Anion Gap 19.0(H) 5.0 - 15.0 mmol/L 05/01/2020 9:43 AM EDT [facility] Blood Line / Unknown 05/01/2020 9: 07 AM EDT 05/01/2020 9:17 AM EDT Narrative [facility] - 05/01/2020 9:43 AM EDT GFR Normal >60 Chronic Kidney Disease <60 Kidney Failure <15 us Odette Grace MD LAB BLOOD ORDERABLES Final Resul t [facility]
[address] [place] [address], * (ABNORMAL) CBC (No Diff) (05/01/2020 9:07 AM EDT) WBC 7.58 3.40 - 10.80 10*3/mm3 05/01/2020 9:25 AM EDT [facility] RBC 1.73(L) 4.14 - 5.80 10*6/mm3 05/01/2020 9:25 AM EDT [facility] Hemoglobin 5.5(LL) 13.0 - 17.7 g/dL 05/01/2020 9:25 AM EDT [facility] Hematocrit 17.2(LL) 37.5 - 51.0 % 05/01/2020 9:25 AM EDT [facility] MCV 99.4(H) 79.0 - 97.0 fL 05/01/2020 9:25 AM EDT [facility] MCH 31.8 26.6 - 33.0 pg 05/01/2020 9:25 AM EDT [facility] MCHC 32.0 31.5 - 35.7 g/dL 05/01/2020 9:25 AM EDT [facility] RDW 13.5 12.3 - 15.4 % 05/01/2020 9:25 AM EDT [facility] RDW-SD 47.9 37.0 - 54.0 fl 05/01/2020 9:25 AM EDT [facility] MPV 9.6 6.0 - 12.0 fL 05/01/2020 9:25 AM EDT [facility] Platelets 269 140 - 450 10*3/mm3 05/01/2020 9:25 AM EDT [facility] Blood Line / Unknown 05/01/2020 9: 07 AM EDT 05/01/2020 9:17 AM EDT us Odette Grace MD LAB BLOOD ORDERABLES Final Resul t [facility]
[address] [place] [address], * (ABNORMAL) POC Glucose Once (05/01/2020 7:45 AM EDT) Glucose 214(H) 70 - 130 mg/dL 05/01/2020 7:47 AM EDT [facility] Blood 05/01/2020 7:45 AM EDT 05/01/2020 7:47 AM EDT us Odette Grace MD POINT OF CARE TEST ORDERABLES Fi nal Result Performing Organization Address [facility] Co de Phone Number [facility]
[address] [place] [address], [place] [phone] * (ABNORMAL) POC Glucose Once (04/30/2020 8:32 PM EDT) Glucose 284(H) 70 - 130 mg/dL 04/30/2020 8:33 PM EDT [facility] Blood 04/30/2020 8:32 PM EDT 04/30/2020 8:33 PM EDT us Odette Grace MD POINT OF CARE TEST ORDERABLES Fi nal Result Performing Organization Address [facility] [facility] Co de Phone Number [facility]
[address] [place] [address], [place] [phone] * (ABNORMAL) POC Glucose Once (04/30/2020 4:19 PM EDT) Glucose 243(H) 70 - 130 mg/dL 04/30/2020 4:22 PM EDT [facility] Blood 04/30/2020 4:19 PM EDT 04/30/2020 4:22 PM EDT us Odette Grace MD POINT OF CARE TEST ORDERABLES Fi nal Result Performing Organization Address City/[facility] Co de Phone Number [facility]
[address] [place] [address], [place] [phone] * Antibody Identification (04/30/2020 2:26 PM EDT) Anti-C ANTI-C 04/30/2020 6:53 PM EDT [facility] Anti-D ANTI-D 04/30/2020 6:53 PM EDT [facility] Blood Venipuncture / Unknown 04/30/2020 2:26 PM EDT 04/30/2020 2:32 PM EDT us Odette Grace MD BLOOD BANK TEST ORDERABLES Final Result [facility]
[address] [place] [address], * Type & Screen (04/30/2020 2:26 PM EDT) ABO Type O 04/30/2020 3:24 PM EDT [facility] RH type Negative 04/30/2020 3:24 PM EDT [facility] Antibody Screen Positive 04/30/2020 3:24 PM EDT [facility] T&S Expiration Date 05/03/2020 11:59:59 PM 04/30/2020 3:24 PM EDT [facility] Blood Venipuncture / Unknown 04/30/2020 2:26 PM EDT 04/30/2020 2:32 PM EDT us Odette Grace MD BLOOD BANK TEST ORDERABLES Edite d Result - Final [facility]
[address] [place] [address], * (ABNORMAL) POC Glucose Once (04/30/2020 11:16 AM EDT) Glucose 254(H) 70 - 130 mg/dL 04/30/2020 11:34 AM EDT [facility] Blood 04/30/2020 11:1 6 AM EDT 04/30/2020 11:34 AM EDT us Odette Grace MD POINT OF CARE TEST ORDERABLES Fi nal Result [facility]
[address] [place] [address], * (ABNORMAL) POC Glucose Once (04/30/2020 8:19 AM EDT) Glucose 222(H) 70 - 130 mg/dL 04/30/2020 8:26 AM EDT [facility] Blood 04/30/2020 8:19 AM EDT 04/30/2020 8:26 AM EDT Odette Grace MD POINT OF CARE TEST ORDERABLES Fi nal Result Performing Organization Address [facility] Co de Phone Number [facility]
[address] [place] [address], [place] [phone] * ABO RH Specimen Verification (04/30/2020 7:59 AM EDT) ABO Type O 04/30/2020 3:29 PM EDT [facility] RH type Negative 04/30/2020 3:29 PM EDT [facility] Blood Venipuncture / Unknown 04/30/2020 7:59 AM EDT 04/30/2020 3:03 PM EDT Odette Grace MD BLOOD BANK TEST ORDERABLES Final Result Performing Organization Address [facility] de Phone Number [facility]
[address] [place] [address], [place] [phone] * (ABNORMAL) Phosphorus (04/30/2020 7:59 AM EDT) Phosphorus 5.7(H) 2.5 - 4.5 mg/dL 04/30/2020 9:33 AM EDT [facility] Blood Venipuncture / Unknown 04/30/2020 7:59 AM EDT 04/30/2020 8:59 AM EDT Yinka Garnica MD LAB BLOOD ORDERABLES Final Result Performing Organization Address City/[facility] Co de Phone Number [facility]
[address] [place] [address], [place] [phone] * (ABNORMAL) CBC (No Diff) (04/30/2020 7:59 AM EDT) WBC 9.44 3.40 - 10.80 10*3/mm3 04/30/2020 9:09 AM EDT [facility] RBC 1.98(L) 4.14 - 5.80 10*6/mm3 04/30/2020 9:09 AM EDT [facility] Hemoglobin 6.3(LL) 13.0 - 17.7 g/dL 04/30/2020 9:09 AM EDT [facility] Hematocrit 19.6(LL) 37.5 - 51.0 % 04/30/2020 9:09 AM EDT [facility] MCV 99.0(H) 79.0 - 97.0 fL 04/30/2020 9:09 AM EDT [facility] MCH 31.8 26.6 - 33.0 pg 04/30/2020 9:09 AM EDT [facility] MCHC 32.1 31.5 - 35.7 g/dL 04/30/2020 9:09 AM EDT [facility] RDW 13.4 12.3 - 15.4 % 04/30/2020 9:09 AM EDT [facility] RDW-SD 47.2 37.0 - 54.0 fl 04/30/2020 9:09 AM EDT [facility] MPV 9.7 6.0 - 12.0 fL 04/30/2020 9:09 AM EDT [facility] Platelets 292 140 - 450 10*3/mm3 04/30/2020 9:09 AM EDT [facility] Blood Venipuncture / Unknown 04/30/2020 7:59 AM EDT 04/30/2020 8:59 AM EDT us Yinka Garnica MD LAB BLOOD ORDERABLES Final Result [facility]
[address] [place] [address], * (ABNORMAL) Comprehensive Metabolic Panel (04/30/2020 7:59 AM EDT) Glucose 204(H) 65 - 99 mg/dL 04/30/2020 9:33 AM EDT [facility] BUN 64(H) 6 - 20 mg/dL 04/30/2020 9:33 AM EDT [facility] Creatinine 7.69(H) 0.76 - 1.27 mg/dL 04/30/2020 9:33 AM EDT [facility] Sodium 131(L) 136 - 145 mmol/L 04/30/2020 9:33 AM EDT [facility] Potassium 4.0 3.5 - 5.2 mmol/L 04/30/2020 9:33 AM EDT [facility] Chloride 92(L) 98 - 107 mmol/L 04/30/2020 9:33 AM EDT [facility] CO2 22.0 22.0 - 29.0 mmol/L 04/30/2020 9:33 AM EDT [facility] Calcium 8.9 8.6 - 10.5 mg/dL 04/30/2020 9:33 AM EDT [facility] Total Protein 6.1 6.0 - 8.5 g/dL 04/30/2020 9:33 AM EDT [facility] Albumin 3.30(L) 3.50 - 5.20 g/dL 04/30/2020 9:33 AM EDT [facility] ALT (SGPT) 26 1 - 41 U/L 04/30/2020 9:33 AM EDT [facility] AST (SGOT) 16 1 - 40 U/L 04/30/2020 9:33 AM EDT [facility] Alkaline Phosphatase 71 39 - 117 U/L 04/30/2020 9:33 AM EDT [facility] Total Bilirubin 0.2 0.0 - 1.2 mg/dL 04/30/2020 9:33 AM EDT [facility] eGFR Non Amer 8(L) >60 mL/min/1.7 3 04/30/2020 9:33 AM EDT [facility] Comment:<15 Indicative of ki dney failure. eGFR Amer 04/30/2020 9:33 AM EDT [facility] Comment:<15 Indicative of ki dney failure. Globulin 2.8 gm/dL 04/30/2020 9:33 AM EDT [facility] A/G Ratio 1.2 g/dL 04/30/2020 9:33 AM EDT [facility] BUN/Creatinine Ratio 8.3 7.0 - 25.0 04/30/2020 9:33 AM EDT [facility] Anion Gap 17.0(H) 5.0 - 15.0 mmol/L 04/30/2020 9:33 AM EDT [facility] Blood Venipuncture / Unknown 04/30/2020 7:59 AM EDT 04/30/2020 8:59 AM EDT [facility] - 04/30/2020 9:33 AM EDT GFR Normal >60 Chronic Kidney Disease <60 Kidney Failure <15 Yinka Garnica MD LAB BLOOD ORDERABLES Final Result Performing Organization Address City/[facility]/ZIP Co de Phone Number [facility]
[address] [place] [address], * (ABNORMAL) Ferritin (04/30/2020 7:59 AM EDT) Ferritin 1,539.00(H ) 30.00 - 400.00 ng/mL 04/30/2020 9:34 AM EDT [facility] Blood Venipuncture / Unknown 04/30/2020 7:59 AM EDT 04/30/2020 8:59 AM EDT [facility] - 04/30/2020 9:34 AM EDT Results may be falsely decreased if patient taking Biotin. Yinka Garnica MD LAB BLOOD ORDERABLES Final Result [facility]
[address] [place] [address], * (ABNORMAL) Iron Profile (04/30/2020 7:59 AM EDT) Iron 36(L) 59 - 158 mcg/dL 04/30/2020 9:33 AM EDT [facility] Iron Saturation (TSAT) 19(L) 20 - 50 % 04/30/2020 9:33 AM EDT [facility] Transferrin 127(L) 200 - 360 mg/dL 04/30/2020 9:33 AM EDT [facility] TIBC 189(L) 298 - 536 mcg/dL 04/30/2020 9:33 AM EDT [facility] Blood Venipuncture / Unknown 04/30/2020 7:59 AM EDT 04/30/2020 8:59 AM EDT Yinka Garnica MD LAB BLOOD ORDERABLES Final Result Performing Organization Address [facility] Co de Phone Number [facility]
[address] [place] [address], * (ABNORMAL) POC Glucose Once (04/29/2020 9:09 PM EDT) Glucose 263(H) 70 - 130 mg/dL 04/29/2020 9:10 PM EDT [facility] Blood 04/29/2020 9:09 PM EDT 04/29/2020 9:10 PM EDT Estrella Tai MD POINT OF CARE TEST ORDERABLE S Final Result Performing Organization Address [facility] Co de Phone Number [facility]
[address] [place] [address], [place] [phone] * (ABNORMAL) POC Glucose Once (04/29/2020 7:36 PM EDT) Glucose 240(H) 70 - 130 mg/dL 04/29/2020 7:38 PM EDT [facility] Blood 04/29/2020 7:36 PM EDT 04/29/2020 7:38 PM EDT Estrella Tai MD POINT OF CARE TEST ORDERABLE S Final Result [facility]
[address] [place] [address], * FL C Arm During Surgery (04/29/2020 [...] at 6 weeks 06/10/2020 8:00 PM EDT [facility] AFB Stain No acid fast bacilli seen on concentrated smear 06/10/2020 8:00 PM EDT [facility] Tissue Lower back structure / Unknown 04/29/2020 7:15 PM EDT 04/29/2020 7:51 PM EDT Yinka Garnica MD MICROBIOLOGY - GENERAL ORD ERABLES Final Result [facility]
[address] [place] [address], * Tissue / Bone Culture - Tissue, Back, Lower (04/29/2020 7:15 PM EDT) Tissue Culture No growth at 3 days GREGORY 05/02/2020 8:57 AM EDT [facility] Gram Stain Rare (1+) WBCs seen 05/02/2020 8:57 AM EDT [facility] Gram Stain No organisms seen 05/02/2020 8:57 AM EDT [facility] Tissue Lower back structure / Unknown 04/29/2020 7:15 PM EDT 04/29/2020 7:51 PM EDT Yinka Garnica MD MICROBIOLOGY - GENERAL ORD ERABLES Final Result [facility]
[address] [place] [address], [place] [phone] [facility]
[address] [place] [address], * Fungus Culture - Tissue, Back, Lower (04/29/2020 7:15 PM EDT) Fungus Culture No fungus isolated at 6 weeks 06/10/2020 8:00 PM EDT [facility] Tissue Lower back structure / Unknown 04/29/2020 7:15 PM EDT 04/29/2020 7:51 PM EDT Yinka Garnica MD MICROBIOLOGY - GENERAL ORD ERABLES Final Result Performing Organization Address City/[facility]/ZIP Co de Phone Number [facility]
[address] [place] [address], * Anaerobic Culture - Tissue, Back, Lower (04/29/2020 7:15 PM EDT) Anaerobic Culture No anaerobes isolated at 5 days 05/04/2020 8:58 AM EDT [facility] Tissue Lower back structure / Unknown 04/29/2020 7:15 PM EDT 04/29/2020 7:51 PM EDT Yinka Garnica MD MICROBIOLOGY - GENERAL ORD ERABLES Final Result [facility]
[address] [place] [address], [place] [phone] * (ABNORMAL) Wound Culture - Wound, Spine, Lumbar (04/29/2020 6:43 PM EDT) Wound Culture Rare Staphylococcus epidermidis(A) GREGORY 06/01/2020 10:43 AM EDT [facility] Gram Stain No WBCs or organisms seen 06/01/2020 10:43 AM EDT [facility] Wound Lumbar spine structure / [...] t demonstrate inducible clindamycin resistance in vitro. us Yinka Garnica MD MICROBIOLOGY - GENERAL ORD ERABLES Edited Result - Final [facility]
[address] [place] [address], [place] [phone] [facility]
[address] [place] [address], [place] [phone] * Anaerobic Culture - Wound, Spine, Lumbar (04/29/2020 6:43 PM EDT) Anaerobic Culture No anaerobes isolated at 5 days 05/04/2020 8:58 AM EDT [facility] Wound Lumbar spine structure / Unknown 04/29/2020 6:43 PM EDT 04/29/2020 7:59 PM EDT us Yinka Garnica MD MICROBIOLOGY - GENERAL ORD ERABLES Final Result [facility]
[address] [place] [address], [place] [phone] * (ABNORMAL) Hemoglobin & Hematocrit, Blood (04/29/2020 5:46 PM EDT) Hemoglobin 7.4(L) 13.0 - 17.7 g/dL 04/29/2020 5:47 PM EDT [facility] Hematocrit 23.0(L) 37.5 - 51.0 % 04/29/2020 5:47 PM EDT [facility] Blood Line / Unknown 04/29/2020 5: 46 PM EDT 04/29/2020 5:46 PM EDT Santy Truong MD LAB BLOOD ORDERABLES Final Re sult [facility]
[address] [place] [address], [place] [phone] * (ABNORMAL) Basic Metabolic Panel (04/29/2020 3:33 PM EDT) Glucose 127(H) 65 - 99 mg/dL 04/29/2020 4:26 PM EDT [facility] BUN 48(H) 6 - 20 mg/dL 04/29/2020 4:26 PM EDT [facility] Creatinine 5.03(H) 0.76 - 1.27 mg/dL 04/29/2020 4:26 PM EDT [facility] Sodium 132(L) 136 - 145 mmol/L 04/29/2020 4:26 PM EDT [facility] Potassium 4.2 3.5 - 5.2 mmol/L 04/29/2020 4:26 PM EDT [facility] Comment:Specimen hemolyzed. Results may be affected. Chloride 95(L) 98 - 107 mmol/L 04/29/2020 4:26 PM EDT [facility] CO2 19.0(L) 22.0 - 29.0 mmol/L 04/29/2020 4:26 PM EDT [facility] Calcium 9.0 8.6 - 10.5 mg/dL 04/29/2020 4:26 PM EDT [facility] eGFR Amer 04/29/2020 4:26 PM EDT [facility] Comment:<15 Indicative of ki dney failure. eGFR Non Amer 12(L) >60 mL/min/1.7 3 04/29/2020 4:26 PM EDT [facility] Comment:<15 Indicative of ki dney failure. BUN/Creatinine Ratio 9.5 7.0 - 25.0 04/29/2020 4:26 PM EDT [facility] Anion Gap 18.0(H) 5.0 - 15.0 mmol/L 04/29/2020 4:26 PM EDT [facility] Blood Venipuncture / Unknown 04/29/2020 3:33 PM EDT 04/29/2020 3:40 PM EDT Narrative [facility] - 04/29/2020 4:26 PM EDT GFR Normal >60 Chronic Kidney Disease <60 Kidney Failure <15 Santy Truong MD LAB BLOOD ORDERABLES Final Re sult [facility]
[address] [place] [address], * (ABNORMAL) POC Glucose Once (04/29/2020 8:07 AM EDT) Glucose 213(H) 70 - 130 mg/dL 04/29/2020 8:18 AM EDT [facility] Blood 04/29/2020 8:07 AM EDT 04/29/2020 8:18 AM EDT Estrella Tai MD POINT OF CARE TEST ORDERABLE S Final Result Performing Organization Address City/[facility] Co de Phone Number [facility]
[address] [place] [address], * Vancomycin, Random (04/29/2020 6:18 AM EDT) [facility] Vancomycin Random 21.50 5.00 - 40.00 mcg/mL 04/29/2020 7:04 AM EDT [facility] Blood Venipuncture / Unknown 04/29/2020 6:18 AM EDT 04/29/2020 6:34 AM EDT Adam Colindres PharmD LAB BLOOD ORDERABLES Final Re sult Performing Organization Address [facility] Co de Phone Number [facility]
[address] [place] [address], * (ABNORMAL) Cyclosporine Level (04/29/2020 6:18 AM EDT) [facility] Cyclosporine 26(L) 100 - 400 ng/mL [...] Mass Spectrometry (LC-MS/MS) please use test code [id number]. ??For testing performed by Immunoassay, please use test code 787531. This test was developed and its performance characteristics determined by [facility]. It has not been cleared or approved by the Food and Drug Administration. Blood Venipuncture / Unknown 04/29/2020 6:18 AM EDT 04/29/2020 6:35 AM EDT Narrative [facility] - 05/02/2020 4:09 PM EDT Performed at: ??[address] - [address] ??[id number] Block Hacker: Jeny Pereyra MD, Phone: ??[phone] Glenn Kay MD LAB BLOOD ORDERABLES Final Resul t Performing Organization Address City/[facility]/ZIP Co de Phone Number [facility] [address] [place] [address], * Magnesium (04/29/2020 6:18 AM EDT) Pathologist [facility] Magnesium 2.3 1.6 - 2.6 mg/dL 04/29/2020 7:06 AM EDT [facility] Blood Venipuncture / Unknown 04/29/2020 6:18 AM EDT 04/29/2020 6:34 AM EDT Keara Berg DO LAB BLOOD ORDERABLES Final Res ult [facility]
[address] [place] [address], * (ABNORMAL) CBC Auto Differential (04/29/2020 6:18 AM EDT) WBC 11.27(H) 3.40 - 10.80 10*3/mm3 04/29/2020 7:23 AM EDT [facility] RBC 2.42(L) 4.14 - 5.80 10*6/mm3 04/29/2020 7:23 AM EDT [facility] Hemoglobin 7.8(L) 13.0 - 17.7 g/dL 04/29/2020 7:23 AM [facility] Hematocrit 23.9(L) 37.5 - 51.0 % 04/29/2020 7:23 AM [facility] MCV 98.8(H) 79.0 - 97.0 fL 04/29/2020 7:23 AM [facility] MCH 32.2 26.6 - 33.0 pg 04/29/2020 7:23 AM [facility] MCHC 32.6 31.5 - 35.7 g/dL 04/29/2020 7:23 AM [facility] RDW 13.0 12.3 - 15.4 % 04/29/2020 7:23 AM [facility] RDW-SD 46.5 37.0 - 54.0 fl 04/29/2020 7:23 AM [facility] MPV 9.6 6.0 - 12.0 fL 04/29/2020 7:23 AM [facility] Platelets 285 140 - 450 10*3/mm3 04/29/2020 7:23 AM [facility] Neutrophil % 63.2 42.7 - 76.0 % 04/29/2020 7:23 AM [facility] Lymphocyte % 14.0(L) 19.6 - 45.3 % 04/29/2020 7:23 AM [facility] Monocyte % 14.5(H) 5.0 - 12.0 % 04/29/2020 7[facility] Eosinophil % 2.0 0.3 - 6.2 % 04/29/2020 7[facility] Basophil % 0.4 0.0 - 1.5 % 04/29/2020 7:[facility] Immature Grans % 5.9(H) 0.0 - 0.5 % 04/29/2020 7:[facility] Neutrophils, Absolute 7.13(H) 1.70 - 7.00 10*3/mm3 04/29/2020 7:23 AM EDT [facility] Lymphocytes, Absolute 1.58 0.70 - 3.10 10*3/mm3 04/29/2020 7:23 AM EDT [facility] Monocytes, Absolute 1.63(H) 0.10 - 0.90 10*3/mm3 04/29/2020 7:23 AM EDT [facility] Eosinophils, Absolute 0.22 0.00 - 0.40 10*3/mm3 04/29/2020 7:23 AM EDT [facility] Basophils, Absolute 0.05 0.00 - 0.20 10*3/mm3 04/29/2020 7:23 AM EDT [facility] Immature Grans, Absolute 0.66(H) 0.00 - 0.05 10*3/mm3 04/29/2020 7:23 AM EDT [facility] nRBC 0.4(H) 0.0 - 0.2 /100 WBC 04/29/2020 7:23 AM EDT [facility] Blood Venipuncture / Unknown 04/29/2020 6:18 AM EDT 04/29/2020 6:34 AM EDT Narrative [facility] - 04/29/2020 7:23 AM EDT Appended report. These results have been appended to a previously verified report. us Keara Berg DO LAB BLOOD ORDERABLES Final Res ult [facility]
[address] [place] [phone], * (ABNORMAL) Comprehensive Metabolic Panel (04/29/2020 6:18 AM EDT) Glucose 196(H) 65 - 99 mg/dL 04/29/2020 7:08 AM EDT [facility] BUN 98(H) 6 - 20 mg/dL 04/29/2020 7:08 AM EDT [facility] Creatinine 10.55(H) 0.76 - 1.27 mg/dL 04/29/2020 7:08 AM [facility] Sodium 134(L) 136 - 145 mmol/L 04/29/2020 7:08 AM [facility] Potassium 4.1 3.5 - 5.2 mmol/L 04/29/2020 7:08 AM [facility] Chloride 92(L) 98 - 107 mmol/L 04/29/2020 7:08 AM [facility] CO2 20.0(L) 22.0 - 29.0 mmol/L 04/29/2020 7:08 AM [facility] Calcium 9.1 8.6 - 10.5 mg/dL 04/29/2020 7:08 AM [facility] Total Protein 6.3 6.0 - 8.5 g/dL 04/29/2020 7:08 AM [facility] Albumin 3.50 3.50 - 5.20 g/dL 04/29/2020 7:08 AM [facility] ALT (SGPT) 33 1 - 41 U/L 04/29/2020 7:08 AM [facility] AST (SGOT) 17 1 - 40 U/L 04/29/2020 7:08 AM [facility] Alkaline Phosphatase 82 39 - 117 U/L 04/29/2020 7:08 AM [facility] Total Bilirubin 0.2 0.0 - 1.2 mg/dL 04/29/2020 7:08 AM [facility] eGFR Non Amer 5(L) >60 mL/min/1. 73 04/29/2020 7:08 AM [facility] Comment:<15 Indicative of ki dney failure. eGFR Amer 04/29/2020 7:08 AM [facility] Comment:<15 Indicative of ki dney failure. Globulin 2.8 gm/dL 04/29/2020 7:08 AM [facility] A/G Ratio 1.3 g/dL 04/29/2020 7:08 AM [facility] BUN/Creatinine Ratio 9.3 7.0 - 25.0 04/29/2020 7:08 AM EDT [facility] Anion Gap 22.0(H) 5.0 - 15.0 mmol/L 04/29/2020 7:08 AM EDT [facility] Blood Venipuncture / Unknown 04/29/2020 6:18 AM EDT 04/29/2020 6:34 AM EDT [facility] - 04/29/2020 7:08 AM EDT GFR Normal >60 Chronic Kidney Disease <60 Kidney Failure <15 Keara Berg DO LAB BLOOD ORDERABLES Final Res ult Performing Organization Address City/[facility]/ZIP Co de Phone Number [facility]
[address] [place] [address], * MRSA Screen, PCR (Inpatient) - Swab, Nares (04/29/2020 1:50 AM EDT) MRSA PCR Negative Negative [employer] 04/29/2020 9:12 AM EDT [facility] Swab Anterior nares swab / Unknown Collection / Unknown 04/29/2020 1:50 AM EDT 04/29/2020 6:29 AM EDT [facility] - 04/29/2020 9:12 AM EDT MRSA Negative Keara Berg DO MICROBIOLOGY - GENERAL ORDERAB LES Final Result [facility]
[address] [place] [address], [place] [phone] * Urinalysis, Microscopic Only - Urine, Clean Catch (04/29/2020 1:44 AM EDT) RBC, UA 0-2 None Seen, 0-2 /HPF 04/29/2020 3:16 AM EDT [facility] WBC, UA 0-2 None Seen, 0-2 /HPF 04/29/2020 3:16 AM EDT [facility] Bacteria, UA Trace None Seen, Trace /HPF 04/29/2020 3:16 AM EDT [facility] Squamous Epithelial Cells, UA 0-2 None Seen, 0-2 /HPF 04/29/2020 3:16 AM EDT [facility] Hyaline Casts, UA 0-6 0 - 6 /LPF 04/29/2020 3:16 AM EDT [facility] Methodology Manual Light Microscopy 04/29/2020 3:16 AM EDT [facility] Urine Urine specimen collection, clean catch / Unknown Collection / Unknown 04/29/2020 1:44 AM EDT 04/29/2020 1:53 AM EDT Keara Berg DO URINE ORDERABLES Final Result [facility]
[address] [place] [address], * (ABNORMAL) Urine Drug Screen - Urine, Clean Catch (04/29/2020 1:44 AM EDT) THC, Screen, Urine Negative Negative 2019 2:17 AM EDT [facility] Phencyclidine (PCP), Urine Negative Negative 04/29/2020 2:17 AM EDT [facility] Cocaine Screen, Urine Negative Negative 04/29/2020 2:17 AM EDT [facility] Methamphetamine, Ur Negative Negative 04/29/2020 2:17 AM EDT [facility] Opiate Screen Positive(A) Negative 04/29/2020 2:17 AM EDT [facility] Amphetamine Screen, Urine Negative Negative 04/29/2020 2:17 AM EDT [facility] Benzodiazepine Screen, Urine Positive(A) Negative 04/29/2020 2:17 AM EDT [facility] Tricyclic Antidepressants Screen Positive(A) Negative 04/29/2020 2:17 AM EDT [facility] Methadone Screen, Urine Negative Negative 04/29/2020 2:17 AM EDT [facility] Barbiturates Screen, Urine Negative Negative 04/29/2020 2:17 AM EDT [facility] Oxycodone Screen, Urine Positive(A) Negative 04/29/2020 2:17 AM EDT [facility] Propoxyphene Screen Negative Negative 04/29/2020 2:17 AM EDT [facility] Buprenorphine, Screen, Urine Negative Negative 04/29/2020 2:17 AM EDT [facility] Urine Urine specimen collection, clean catch / Unknown Collection / Unknown 04/29/2020 1:44 AM EDT 04/29/2020 1:53 AM EDT [facility] - 04/29/2020 2:17 AM EDT [...] Keara Berg DO URINE ORDERABLES Final Result [facility]
[address] [place] [address], * (ABNORMAL) Urinalysis With Microscopic If Indicated (No Culture) - Urine, Clean Catch (04/29/2020 1:44 AM EDT) Color, UA Yellow Yellow, Straw 04/29/2020 1:56 AM EDT [facility] Appearance, UA Clear Clear 04/29/2020 1:56 AM EDT [facility] pH, UA <=5.0 5.0 - 8.0 04/29/2020 1:56 AM EDT [facility] Specific [place], UA 1.017 1.001 - 1.030 04/29/2020 1:56 AM EDT [facility] Glucose, UA 100 mg/dL (Trace)(A) Negative 04/29/2020 1:56 AM EDT [facility] Ketones, UA Negative Negative 04/29/2020 1:56 AM EDT [facility] Bilirubin, UA Negative Negative 04/29/2020 1:56 AM EDT [facility] Blood, UA Negative Negative 04/29/2020 1:56 AM EDT [facility] Protein, UA >=300 mg/dL (3+)(A) Negative 04/29/2020 1:56 AM EDT [facility] Leuk Esterase, UA Negative Negative 04/29/2020 1:56 AM EDT [facility] Nitrite, UA Negative Negative 04/29/2020 1:56 AM EDT [facility] Urobilinogen, UA 0.2 E.U./dL 0.2 - 1.0 E.U./dL 04/29/2020 1:56 AM EDT [facility] Urine Urine specimen collection, clean catch / Unknown Collection / Unknown 04/29/2020 1:44 AM EDT 04/29/2020 1:53 AM EDT Keara Berg DO URINE ORDERABLES Final Result Performing Organization Address [facility]/ZIP Co de Phone Number [facility]
[address] [place] [address], [place] [phone] * (ABNORMAL) POC Glucose Once (04/28/2020 8:51 PM EDT) Glucose 219(H) 70 - 130 mg/dL 04/28/2020 8:51 PM EDT [facility] Blood 04/28/2020 8:51 PM EDT 04/28/2020 8:51 PM EDT Keara Berg DO POINT OF CARE TEST ORDERABLES Final Result Performing Organization Address [facility] Co de Phone Number [facility]
[address] [place] [address], [place] [phone] * Hep B Confirmation Tube (04/28/2020 7:24 PM EDT) Extra Tube 04/29/2020 6:40 AM EDT [facility] Blood Venipuncture / Unknown 04/28/2020 7:24 PM EDT 04/28/2020 7:40 PM EDT Keara Berg LAB BLOOD ORDERABLES Final Res ult Performing Organization Address [facility] Co de Phone Number [facility]
[address] [place] [address], [place] [phone] * Hepatitis Panel, Acute (04/28/2020 7:24 PM EDT) Hepatitis B Surface Ag 04/28/2020 8:36 PM EDT [facility] Hep A IgM Non-Reacti ve Non-Reacti ve 04/28/2020 8:36 PM EDT [facility] Hep B C IgM Non-Reacti ve Non-Reacti ve 04/28/2020 8:36 PM EDT [facility] Hepatitis C Ab Non-Reacti ve Non-Reacti ve 04/28/2020 8:36 PM EDT [facility] Blood Venipuncture / Unknown 04/28/2020 7:24 PM EDT 04/28/2020 7:40 PM EDT [facility] - 04/28/2020 8:36 PM EDT Results may be falsely decreased if patient taking Biotin. Preliminary reactive result pending confirmation at [facility]. [facility] LAB BLOOD ORDERABLES Final Res ult Performing Organization Address [facility] Co de Phone Number [facility]
[address] [place] [address], * (ABNORMAL) Troponin (04/28/2020 7:24 PM EDT) Troponin T 0.126(HH) 0.000 - 0.030 ng/mL 04/28/2020 8:26 PM EDT [facility] Blood Venipuncture / Unknown 04/28/2020 7:24 PM EDT 04/28/2020 7:40 PM EDT [facility] - 04/28/2020 8:26 PM EDT [...] be falsely decreased if patient taking Biotin. [employer] LAB BLOOD ORDERABLES Final Res ult Performing Organization Address [facility]/ZIP Co de Phone Number [facility]
[address] [phone] * (ABNORMAL) Procalcitonin (04/28/2020 7:24 PM EDT) [facility] Procalcitonin 4.48(H) 0.00 - 0.25 ng/mL 04/28/2020 8:16 PM EDT [facility] Blood Venipuncture / Unknown 04/28/2020 7:24 PM EDT 04/28/2020 7:40 PM EDT [facility] - 04/28/2020 8:16 PM EDT As [...] Day 4 values are available. Refer to http://www.whqaef-yfi-awbdnwscrz.com/ Change in PCT <=80 % A decrease [...] be falsely decreased if patient taking Biotin. [facility] BLOOD ORDERABLES Final Res ult Performing Organization Address [facility]/ZIP Co de Phone Number [facility]
[address] [place] [address], * (ABNORMAL) POC Glucose Once (04/28/2020 5:23 PM EDT) Pathologist [facility] Glucose 188(H) 70 - 130 mg/dL 04/28/2020 5:24 PM EDT [facility] Blood 04/28/2020 5:23 PM EDT 04/28/2020 5:24 PM EDT [facility] POINT OF CARE TEST ORDERABLES Final Result Performing Organization Address [facility] de Phone Number [facility]
[address] [place] [address], [place] [phone] * 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, CUPOLA CHARGER Swab in UTM/VTM, 3-4 HR TAT - Swab, Nasopharynx (04/28/2020 3:05 PM EDT) Pathologist [facility] ADENOVIRUS, PCR Not Detected Not Detected BIOFIRE FILMARRAY 04/28/2020 4:44 PM EDT [facility] Coronavirus 229E Not Detected Not Detected BIO[employer]RE FILMARRAY 04/28/2020 4:44 PM EDT [facility] Coronavirus HKU1 Not Detected Not Detected BIOFIRE FILMARRAY 04/28/2020 4:44 PM EDT [facility] Coronavirus NL63 Not Detected Not Detected BIOFIRE FILMARRAY 04/28/2020 4:44 PM EDT [facility] Coronavirus OC43 Not Detected Not Detected BIOFIRE FILMARRAY 04/28/2020 4:44 PM EDT [facility] COVID19 Not Detected Not Detected - Ref. Range BIOFIRE FILMARRAY 04/28/2020 4:44 PM EDT [facility] Human Metapneumovirus Not Detected Not Detected BIOFIRE FILMARRAY 04/28/2020 4:44 PM EDT [facility] Human Rhinovirus/Enterov irus Not Detected Not Detected BIOFIRE FILMARRAY 04/28/2020 4:44 PM EDT [facility] Influenza A PCR Not Detected Not Detected BIOFIRE FILMARRAY 04/28/2020 4:44 PM EDT [facility] Influenza A H1 Not Detected Not Detected BIOFIRE FILMARRAY 04/28/2020 4:44 PM EDT [facility] Influenza A H1 2009 PCR Not Detected Not Detected BIO[employer]RE FILMARRAY 04/28/2020 4:44 PM EDT [facility] Influenza A H3 Not Detected Not Detected BIOFIRE FILMARRAY 04/28/2020 4:44 PM EDT [facility] Influenza B PCR Not Detected Not Detected BIOFIRE FILMARRAY 04/28/2020 4:44 PM EDT [facility] Parainfluenza Virus 1 Not Detected Not Detected BIOFIRE FILMARRAY 04/28/2020 4:44 PM EDT [facility] Parainfluenza Virus 2 Not Detected Not Detected BIOFIRE FILMARRAY 04/28/2020 4:44 PM EDT [facility] Parainfluenza Virus 3 Not Detected Not Detected BIOFIRE FILMARRAY 04/28/2020 4:44 PM EDT [facility] Parainfluenza Virus 4 Not Detected Not Detected BIOFIRE FILMARRAY 04/28/2020 4:44 PM EDT [facility] RSV, PCR Not Detected Not Detected BIOFIRE FILMARRAY 04/28/2020 4:44 PM EDT [facility] Bordetella pertussis pcr Not Detected Not Detected BIOFIRE FILMARRAY 04/28/2020 4:44 PM EDT [facility] Bordetella parapertussis PCR Not Detected Not Detected BIOFIRE FILMARRAY 04/28/2020 4:44 PM EDT [facility] Chlamydophila pneumoniae PCR Not Detected Not Detected [employer] FILMARRAY 04/28/2020 4:44 PM EDT [facility] Mycoplasma pneumo by PCR Not Detected Not Detected [employer] 04/28/2020 4:44 PM EDT [facility] Swab Nasopharyngeal structure / Unknown Collection / Unknown 04/28/2020 3:05 PM EDT 04/28/2020 3:53 PM EDT Narrative [facility] - 04/28/2020 4:44 PM EDT Fact sheet for providers: https://docs.Rack[employer]/wp-content/uploads/BIY8414-8867-CS2.1-DYK-Ekcxqula-Fa ct-Sh eet-3.pdf Fact sheet for patients: https://docs.[employer]ack[employer]/wp-content/uploads/PHX5240-6194-SO1.8-AXR-Grkqimv-Fac t-[facility] et-1.pdf Keara Berg DO MICROBIOLOGY - GENERAL ORDERAB LES Final Result [facility]
[address] [place] [address], * (ABNORMAL) Blood Gas, Arterial With Co-Ox (04/28/2020 11:43 AM EDT) Michael's Test N/A 04/28/2020 11:45 AM EDT [facility] pH, Arterial 7.277(L) 7.350 - 7.450 pH units 04/28/2020 11:45 AM EDT [facility] Comment:84 Value below refer ence range pCO2, Arterial 46.8(H) 35.0 - 45.0 mm Hg 04/28/2020 11:45 AM EDT [facility] Comment:83 Value above refer ence range pO2, Arterial 88.1 83.0 - 108.0 mm Hg 04/28/2020 11:45 AM EDT [facility] HCO3, Arterial 21.8 20.0 - 26.0 mmol/L 04/28/2020 11:45 AM EDT [facility] Base Excess, Arterial -4.8(L) 0.0 - 2.0 mmol/L 04/28/2020 11:45 AM EDT [facility] Hemoglobin, Blood Gas 8.4(L) 13.5 - 17.5 g/dL 04/28/2020 11:45 AM T [facility] Comment:84 Value below refer ence range Hematocrit, Blood Gas 25.7 % 04/28/2020 11:45 AM T [facility] Oxyhemoglobin 94.1 94 - 99 % 04/28/2020 11:45 AM [facility] THER[facility] Methemoglobin 0.80 0.00 - 1.50 % 04/28/2020 11:45 AM [facility] THER[facility] Carboxyhemoglobin 0.9 0 - 2 % 020 11:45 AM T [facility] CO2 Content 23.2 22 - 33 mmol/L 04/28/2020 11:45 AM [facility] Temperature 37.0 C 04/28/2020 11:45 AM [facility] THER[facility] Barometric Pressure for Blood Gas 04/28/2020 11:45 AM [facility] Comment:N/A Modality Nasal Cannula 04/28/2020 11:45 AM [facility] THER[facility]Y FIO2 32 % 04/28/2020 11:45 AM [facility] THER[facility] Rate 0 Breaths/ minute 04/28/2020 11:45 AM [facility] THERAPY PIP 0 cmH2O 04/28/2020 11:45 AM [facility] THER[facility] Comment:Meter: [id number] Surgical Coder: [id number] IPAP 0 04/28/2020 11:45 AM [facility] THERAPY EPAP 0 04/28/2020 11:45 AM [facility] THERAPY Note 04/28/2020 11:45 AM [facility] THER[facility] pH, Temp Corrected 7.277 pH Units 2019 11:45 AM EDT [facility] TH[facility] pCO2, Temperature Corrected 46.8 35 - 48 mm Hg 04/28/2020 11:45 AM EDT [facility] TH[facility] pO2, Temperature Corrected 88.1 83 - 108 mm Hg 04/28/2020 11:45 AM EDT [facility] Arterial Blood 04/28/2020 11 :43 AM EDT 04/28/2020 11:47 AM EDT us Keara Morena DO LAB BLOOD ORDERABLES Final Res ult [facility] THERAPY
[address] [place] [address], [place] * MRI Lumbar Spine Without Contrast [...] Blood, Wrist, Right (04/28/2020 7:01 AM EDT) Blood Culture No growth at 5 days 05/03/2020 8:00 AM EDT [facility] Blood Structure of right wrist region / Unknown Venipuncture / Unknown 04/28/2020 7:01 AM EDT 04/28/2020 7:49 AM EDT Kym Garcia DO MICROBIOLOGY - GENERAL O RDERABLES Final Result Performing Organization Address City/[facility]/ZIP Co de Phone Number [facility] [place] [address], * Lactic Acid, Reflex (04/28/2020 7:01 AM EDT) Lactate 1.3 0.5 - 2.0 mmol/L 04/28/2020 7:35 AM EDT [facility] Comment:Falsely depressed re sults may occur on samples drawn from patients receiving N-Acetylcysteine (NAC) or Metamizole. Blood Venipuncture / Unknown 04/28/2020 7:01 AM EDT 04/28/2020 7:10 AM EDT us Kym Garcia DO LAB BLOOD ORDERABLES Fin al Result [facility]
[address] [place] [id number], [place] [phone] * Blood Culture - Blood, Arm, Right (04/28/2020 6:50 AM EDT) Blood Culture No growth at 5 days 05/03/2020 8:00 AM EDT [facility] Blood Right upper arm structure / Unknown Venipuncture / Unknown 04/28/2020 6:50 AM EDT 04/28/2020 7:50 AM EDT us Kym Garcia DO MICROBIOLOGY - GENERAL O RDERABLES Final Result [facility]
[address] [place] [address], [place] [phone] * CT Lumbar Spine Without Contrast (04/28/2020 [...] AM Workstation Name: [facility] Narrative 04/28/2020 6:28 AM EDT INDICATION: ?? Pain [...] AM Workstation Name: [facility] Kym Garcia DO IMG CT ORDERABLES Final [...] 6:34 AM Workstation Name: [facility] 04/28/2020 6:34 AM EDT INDICATION: ?? Liver [...] MD Signed: 04/28/2020 6:34 AM Workstation Name: [facility] Kym Garcia DO [facility] ORDERABLES Final Result * CT Abdomen [...] MD Signed: 04/28/2020 6:41 AM Workstation Name: ODILONPRUDENCIO [facility] 04/28/2020 6:41 AM EDT INDICATION: Post liver [...] AM Workstation Name: [facility] Kym Garcia DO IMG CT ORDERABLES Final Result * XR Chest 1 View (04/28/2020 1:52 AM EDT) Anatomical Region Laterality Modality Body N/A Radiographic Sobia ging 04/28/2020 1:58 AM EDT Impressions 04/28/2020 1:58 AM EDT No acute cardiopulmonary findings. Signer Name: Gabino Herr MD Signed: 04/28/2020 1:58 AM Workstation Name: [facility] Radiology [facility] Narrative 04/28/2020 1:58 AM EDT CR Chest [...] MD Signed: 04/28/2020 1:58 AM Workstation Name: [facility] Radiology [facility] Kym Garcia DO IMG DIAGNOSTIC IMAGING O RDERABLES Final Result * ECG 12 Lead (04/28/2020 12:20 AM EDT) 04/28/2020 12:2 0 AM EDT 04/28/2020 8:01 AM EDT Narrative ECG - 04/28/2020 8:01 AM EDT Test [...] ([id number]) on 04/28/2020 8:01:00 AM Referred By: EDMD Confirmed By:KYM GARCIA MD us Kym Garcia DO ECG ORDERABLES Final Re sult Performing Organization Address City/[facility] Co de Phone Number ECG * Lactic Acid, Reflex Timer (This will reflex a repeat order 3-3:15 hours after ordered.) (04/28/202012:17 AM EDT) Hold Tube Hold for add-ons. 04/28/2020 4:00 AM EDT [facility] Comment:Auto resulted. Blood Venipuncture / Unknown 04/28/2020 12:17 AM EDT 04/28/2020 12:23 AM EDT us Kym Garcia DO LAB BLOOD ORDERABLES Fin al Result Performing Organization Address City/[facility]/ZIP Co de Phone Number [facility]
[address] [place] [address], * (ABNORMAL) Lactic Acid, Plasma (04/28/2020 12:17 AM EDT) Lactate 3.2(HH) 0.5 - 2.0 mmol/L 04/28/2020 12:48 AM EDT [facility] Comment:Falsely depressed re sults may occur on samples drawn from patients receiving N-Acetylcysteine (NAC) or Metamizole. Blood Venipuncture / Unknown 04/28/2020 12:17 AM EDT 04/28/2020 12:23 AM EDT Kym Garcia DO LAB BLOOD ORDERABLES Fin al Result [facility]
[address] [place] [address], * (ABNORMAL) CBC Auto Differential (04/28/2020 12:16 AM EDT) WBC 15.73(H) 3.40 - 10.80 10*3/mm3 04/28/2020 12:26 AM EDT [facility] RBC 2.91(L) 4.14 - 5.80 10*6/mm3 04/28/2020 12:26 AM EDT [facility] Hemoglobin 9.3(L) 13.0 - 17.7 g/dL 04/28/2020 12:26 AM EDT [facility] Hematocrit 27.2(L) 37.5 - 51.0 % 04/28/2020 12:26 AM EDT [facility] MCV 93.5 79.0 - 97.0 fL 04/28/2020 12:26 AM EDT [facility] MCH 32.0 26.6 - 33.0 pg 04/28/2020 12:26 AM EDT [facility] MCHC 34.2 31.5 - 35.7 g/dL 04/28/2020 12:26 AM EDT [facility] RDW 12.9 12.3 - 15.4 % 04/28/2020 12:26 AM EDT [facility] RDW-SD 43.5 37.0 - 54.0 fl 04/28/2020 12:26 AM EDT [facility] MPV 9.4 6.0 - 12.0 fL 04/28/2020 12:26 AM EDT [facility] Platelets 310 140 - 450 10*3/mm3 04/28/2020 12:26 AM EDT [facility] Neutrophil % 68.2 42.7 - 76.0 % 04/28/2020 12:26 AM EDT [facility] Lymphocyte % 13.9(L) 19.6 - 45.3 % 04/28/2020 12:26 AM EDT [facility] Monocyte % 13.4(H) 5.0 - 12.0 % 04/28/2020 12:26 AM [facility] Eosinophil % 1.3 0.3 - 6.2 % 04/[facility]2020 [facility] Basophil % 0.4 0.0 - 1.5 % 04/28/2020 12:26 AM [facility] Immature Grans % 2.8(H) 0.0 - 0.5 % 04/28/2020 12:26 AM [facility] Neutrophils, Absolute 10.74(H) 1.70 - 7.00 10*3/mm3 04/28/2020 12:26 AM [facility] Lymphocytes, Absolute 2.18 0.70 - 3.10 10*3/mm3 04/28/2020 12:[facility] Monocytes, Absolute 2.10(H) 0.10 - 0.90 10*3/mm3 04/28/2020 12:26 AM [facility] Eosinophils, Absolute 0.21 0.00 - 0.40 10*3/mm3 04/28/2020 12:26 AM [facility] Basophils, Absolute 0.06 0.00 - 0.20 10*3/mm3 04/28/2020 12:26 AM [facility] Immature Grans, Absolute 0.44(H) 0.00 - 0.05 10*3/mm3 04/28/2020 12:26 AM [facility] nRBC 0.1 0.0 - 0.2 /100 WBC 04/28/2020 12:26 AM [facility] Blood Venipuncture / Unknown 04/28/2020 12:16 AM EDT 04/28/2020 12:23 AM EDT us Kym Peter Pacitti DO LAB BLOOD ORDERABLES Fin al Result Performing Organization Address [facility] de Phone Number [facility]
[address] [place] [address], * Gold Top - SST (04/28/2020 12:16 AM EDT) Extra Tube Hold for add-ons. 04/28/2020 1:30 AM EDT [facility] Comment:Auto resulted. Blood Venipuncture / Unknown 04/28/2020 12:16 AM EDT 04/28/2020 12:23 AM EDT us Kym Garcia DO LAB BLOOD ORDER ONLY Fin al Result Performing Organization Address [facility] de Phone Number [facility]
[address] [place] [address], * Lavender Top (04/28/2020 12:16 AM EDT) Extra Tube hold for add-on 04/28/2020 1:30 AM EDT [facility] Comment:Auto resulted Blood Venipuncture / Unknown 04/28/2020 12:16 AM EDT 04/28/2020 12:23 AM EDT us Kym Garcia DO LAB BLOOD ORDER ONLY Fin al Result Performing Organization Address City/[facility] de Phone Number [facility]
[address] [place] [address], * Green Top (Gel) (04/28/2020 12:16 AM EDT) Extra Tube Hold for add-ons. 04/28/2020 1:30 AM EDT [facility] Comment:Auto resulted. Blood Venipuncture / Unknown 04/28/2020 12:16 AM EDT 04/28/2020 12:23 AM EDT us Kym Garcia LAB BLOOD ORDER ONLY Fin al Result Performing Organization Address [facility] de Phone Number [facility]
[address] [place] [address], * Light Blue Top (04/28/2020 12:16 AM EDT) Extra Tube hold for add-on 04/28/2020 1:30 AM EDT [facility] Comment:Auto resulted Blood Venipuncture / Unknown 04/28/2020 12:16 AM EDT 04/28/2020 12:23 AM EDT us Kym Garcia DO LAB BLOOD ORDER ONLY Fin al Result Performing Organization Address [facility] de Phone Number [facility]
[address] [place] [address], * Magnesium (04/28/2020 12:16 AM EDT) Magnesium 2.4 1.6 - 2.6 mg/dL 04/28/2020 12:45 AM EDT [facility] Blood Venipuncture / Unknown 04/28/2020 12:16 AM EDT 04/28/2020 12:23 AM EDT us Kym Garcia LAB BLOOD ORDERABLES Fin al Result Performing Organization Address [facility] de Phone Number [facility]
[address] [place] [address], * (ABNORMAL) Troponin (04/28/2020 12:16 AM EDT) Troponin T 0.154(HH) 0.000 - 0.030 ng/mL 04/28/2020 12:48 AM EDT [facility] Blood Venipuncture / Unknown 04/28/2020 12:16 AM EDT 04/28/2020 12:23 AM EDT Narrative [facility] - 04/28/2020 12:48 AM EDT Troponin [...] falsely decreased if patient taking Biotin. us Kym Garcia DO LAB BLOOD ORDERABLES Fin al Result [facility]
[address] [place] [address], * (ABNORMAL) Comprehensive Metabolic Panel (04/28/2020 12:16 AM EDT) Glucose 285(H) 65 - 99 mg/dL 04/28/2020 12:45 AM EDT [facility] BUN 109(H) 6 - 20 mg/dL 04/28/2020 12:45 AM EDT [facility] Creatinine 14.39(H) 0.76 - 1.27 mg/dL 04/28/2020 12:45 AM EDT [facility] Sodium 129(L) 136 - 145 mmol/L 04/28/2020 12:45 AM EDT [facility] Potassium 4.3 3.5 - 5.2 mmol/L 04/28/2020 12:45 AM EDT [facility] Chloride 80(L) 98 - 107 mmol/L 04/28/2020 12:45 AM EDT [facility] CO2 19.0(L) 22.0 - 29.0 mmol/L 04/28/2020 12:45 AM EDT [facility] Calcium 9.3 8.6 - 10.5 mg/dL 04/28/2020 12:45 AM EDT [facility] Total Protein 7.1 6.0 - 8.5 g/dL 04/28/2020 12:45 AM EDT [facility] Albumin 3.60 3.50 - 5.20 g/dL 04/28/2020 12:45 AM EDT [facility] ALT (SGPT) 48(H) 1 - 41 U/L 04/28/2020 12:45 AM EDT [facility] AST (SGOT) 24 1 - 40 U/L 04/28/2020 12:45 AM EDT [facility] Alkaline Phosphatase 105 39 - 117 U/L 04/28/2020 12:45 AM EDT [facility] Total Bilirubin 0.3 0.0 - 1.2 mg/dL 04/28/2020 12:45 AM EDT [facility] eGFR Non Amer 4(L) >60 mL/min/1. 73 04/28/2020 12:45 AM EDT [facility] Comment:<15 Indicative of ki dney failure. eGFR Amer 04/28/2020 12:45 AM EDT [facility] Comment:<15 Indicative of ki dney failure. Globulin 3.5 gm/dL 04/28/2020 12:45 AM EDT [facility] A/G Ratio 1.0 g/dL 04/28/2020 12:45 AM EDT [facility] BUN/Creatinine Ratio 7.6 7.0 - 25.0 04/28/2020 12:45 AM EDT [facility] Anion Gap 30.0(H) 5.0 - 15.0 mmol/L 04/28/2020 12:45 AM EDT [facility] Blood Venipuncture / Unknown 04/28/2020 12:16 AM EDT 04/28/2020 12:23 AM EDT Narrative [facility] - 04/28/2020 12:45 AM EDT GFR Normal >60 Chronic Kidney Disease <60 Kidney Failure <15 Kym Garcia DO LAB BLOOD ORDERABLES Fin al Result [facility]
[id number] [place], [place] [id number] [phone] * SCANNED - TELEMETRY (04/28/2020) Anatomical Region Laterality Modality Other [facility] Onbase ECG ORDERABLES Final Result * SCANNED - TELEMETRY (04/28/2020) Anatomical Region Laterality Modality Other [facility] [place] Onbase ECG ORDERABLES Final Result * SCANNED - TELEMETRY (04/28/2020) Anatomical Region Laterality Modality Other Result [facility] Onbase ECG ORDERABLES Final Result * SCANNED - TELEMETRY (04/28/2020) Anatomical Region Laterality Modality Other [facility] [place] Onbase ECG ORDERABLES Final Result * SCANNED - TELEMETRY (04/28/2020) Anatomical Region Laterality Modality Other Result [facility] Onbase ECG ORDERABLES Final Result * SCANNED - TELEMETRY (04/28/2020) Anatomical Region Laterality Modality Other [facility] [place] Onbase ECG ORDERABLES Final Result documented in this encounter Visit Diagnoses Not on filedocumented in this encounter Admitting Diagnoses Diagnosis Sepsis [...] (4 doses total), Indications: Hemodialysis ProcedureIndications:Hemodialysis Procedure bisacodyl (DULCOLAX) EC tablet 10 mg [...] Given 05/10/2020 10:21 PM EDT 200 mg cycloSPORINE modified (NEORAL) capsule 50 mg 50 [...] AM EDT 20,000 Units Other famotidine (PEPCID) tablet 10 mg 10 mg, Oral, Daily, First dose (after last modification) on Mon04/29/20 at 0900 Given 05/13/2020 10:49 AM EDT 10 mg Given 05/12/2020 9:51 AM EDT 10 mg Given 05/11/2020 4:29 PM EDT 10 mg glucagon (human recombinant) (GLUCAGEN DIAGNOSTIC) injection 1 mg 1 mg, Subcutaneous, Every 15 Minutes PRN, Low Blood Sugar, Blood Glucose Less Than 70, Starting on Mon04/28/20 at 1206, Blood Glucose Less Than 70 - Patient Without IV Access - Unresponsive, NPO or Unable To Safely Swallow hydrALAZINE (APRESOLINE) tablet 100 mg 100 mg, [...] Given 05/12/2020 9:52 AM EDT 1 tablet insulin detemir (LEVEMIR) injection 15 Units 15 Units, Subcutaneous, Nightly, First dose on Mon05/01/20 at 2100, {BKC} Given 05/12/2020 10:58 PM EDT 15 Units Left Arm Given 05/11/2020 8:17 PM EDT 15 Units Ri ght Upper Abdomen Given 05/10/2020 10:15 PM EDT 15 Units R ight Lower Abdomen insulin lispro (humaLOG) injection 0-9 [...] Given 05/13/2020 11:36 AM EDT 2 Units Righ t Arm Given 05/08/2020 8:57 AM EDT 2 Units Le ft Lower Abdomen Given 05/07/2020 5:35 PM EDT 2 Units Le ft Arm labetalol (NORMODYNE,TRANDATE) injection 10 mg 10 mg, Intravenous, Every 8 Hours PRN, High Blood Pressure, Starting on Mon05/05/20 at 1617, As needed for SBP greater than 180 with HR over 70. Give by slow IV Push each 20mg (or less) over 2 minutes Given 05/06/2020 9:52 PM EDT 10 mg lisinopril (PRINIVIL,ZESTRIL) tablet 40 mg 40 mg, Oral, Every 12 Hours Scheduled, First dose (after last modification) on Mon05/12/20 at 2100 Given 05/13/2020 10:49 AM EDT 40 mg Given 05/12/2020 10:46 PM EDT 40 mg metoprolol tartrate (LOPRESSOR) tablet 100 mg 100 mg, Oral, Every 8 Hours Scheduled, First dose (after last modification) on Mon05/04/20 at 1400 Given 05/13/2020 10:49 AM EDT 100 mg Given 05/12/2020 10:46 PM EDT 100 mg Given 05/12/2020 4:48 PM EDT 100 mg mycophenolate (CELLCEPT) capsule 250 mg 250 [...] Given 05/10/2020 10:17 PM EDT 250 mg NIFEdipine XL (PROCARDIA XL) 24 hr tablet 90 mg 90 mg, Oral, 2 Times Daily, First dose on Mon04/28/20 at 2100, Caution: Look alike/sound alike drug alert. Avoid grapefruit juice. Given 05/13/2020 10:49 AM EDT 9 0 mg Given 05/12/2020 10:47 PM EDT 90 mg Given 05/12/2020 9:51 AM EDT 90 mg ondansetron (ZOFRAN) injection 4 mg 4 mg, Intravenous, Every 8 Hours PRN, Nausea, Vomiting, Starting on Mon04/28/20 at 1634 Given 05/08/2020 2:30 AM EDT 4 mg Given 05/05/2020 2:51 AM EDT 4 mg Given 04/29/2020 3:15 AM EDT 4 mg Pharmacy to dose vancomycin Continuous PRN, Starting on Mon05/13/20 at 0938, Until Mon05/13/20 at 1803, Consult, Antimicrobial Indication: Sepsis, Indications: Bone and/or Joint Infection, SepsisIndications:Bone and/or Joint Infection,Sepsis polyethylene glycol (MIRALAX) packet 17 g 17 [...] Line Care, Starting on Mon04/29/20 at 2032 Given 05/03/2020 6:07 PM EDT 10 mL [...] AM EDT sodium chloride 0.9 % infusion 9 mL/hr, Intravenous, Continuous PRN, Start Prior to Surgery, Starting on Mon04/29/20 at 1508 New Bag 04/29/2020 4:08 PM EDT 9 mL/hr 9 mL/hr terazosin (HYTRIN) capsule 5 mg 5 mg, Oral, Nightly PRN, SBP greater than 160, Starting on Mon04/29/20 at 1429 Given 05/07/2020 7:03 AM EDT 5 mg Given 05/02/2020 11:05 PM EDT 5 mg Given 05/02/2020 3:34 AM EDT 5 mg vancomycin in dextrose 5% 150 mL (VANCOCIN) IVPB 750 mg 750 mg, Intravenous, Administer over 60 Minutes, User Specified (Once per day on Mon), First dose on Mon05/08/20 at 1700, For 5 doses, Administer following dialysis sessions, Indications: Bone and/or Joint InfectionIndications:Bone and/or Joint Infection New Bag 05/13/2020 10:48 AM EDT 750 mg New Bag 05/11/2020 3:30 PM EDT 750 mg New Bag 05/08/2020 4:46 PM EDT 750 mg documented [...] RN) 1050 (Given - Provider: Sylvain Cadet, RN) docusate sodium (COLACE) capsule 100 mg 100 mg, Oral, 2 Times Daily, First dose on Mon04/28/20 at 1132, Swallow whole. Do not open, crush, or chew capsule. 1853 (Canceled Entry - Provider: Karli Carroll RN)2006 (Given - Provider: Aydin Keller RN) 950 (Given - Provider: Karli Carroll RN)2246 (Given [...] of dose., Indications: Bone and/or Joint Infection 163 (Given - Provider: Khushi Blood RN)2006 (Given - Provider: Aydin Keller RN) 0951 (Given - Provider: Karli Carroll RN)2247 (Given [...] Indications: Anemia associated with Chronic Renal Failure 1854 (Canceled Entry - Provider: Karli Carroll RN) 1053 (Given - Provider: Sylvain Cadet, JANA) famotidine (PEPCID) tablet 10 mg 10 mg, [...] Karli Carroll RN)2008 (Given - Provider: Aydin Keller RN) 0951 (Given - Provider: Karli Carroll RN)1648 (Given - Provider: Karli Carroll RN)2248 (Given - Provider: Aydin Keller, JANA) 1048 (Given - Provider: Sylvain Cadet RN)1600 (Due) insulin detemir (LEVEMIR) injection 15 Units 15 Units, Subcutaneous, Nightly, First dose on Mon05/01/20 at 2100, {BK} 2017 (Given - Provider: Aydin Keller, JANA) 2258 (Given - Provider: Aydin Keller RN) insulin lispro (humaLOG) injection 0-9 Units 0-9 [...] parameters not met)1136 (Given - Provider: Sylvain Cadet RN) lisinopril (PRINIVIL,ZESTRIL) tablet 20 mg (CANCELED) 20 mg, Oral, Every 24 Hours Scheduled, First dose (after last modification) on Mon05/11/20 at 0900 1631 (Given - Provider: Khushi Blood RN) 0952 (Given - Provider: Karli Carroll RN) lisinopril (PRINIVIL,ZESTRIL) tablet 40 mg 40 mg, Oral, Every 12 Hours Scheduled, First dose (after last modification) on Mon05/12/20 at 2100 2246 (Given - Provider: Aydin Keller, JANA) 1049 (Given - Provider: Sylvain Cadet RN) metoprolol tartrate (LOPRESSOR) tablet 100 mg 100 mg, Oral, Every 8 Hours Scheduled, First dose (after last modification) on Mon05/04/20 at 1400 0600 (Due)1631 (Given - Provider: Khushi Blood RN)2001 (Given - Provider: Aydin Keller, JANA)2200 (Canceled Entry - Provider: Aydin Keller RN) 0514 (Given - Provider: Aydin Keller RN)1648 (Given - Provider: Karli Carroll RN)2246 (Given - Provider: Aydin Keller RN) 1049 (Given - Provider: Sylvain Cadet, RN)1550 (Not Given - Provider: Karli Carroll RN - Reason: Patient/family refused) mycophenolate (CELLCEPT) capsule 250 mg 250 mg, Oral, Daily, First dose (after last modification) on Mon05/04/20 at 0900, Take on an empty stomach Do not crush or open capsules 1633 (Given - Provider: Khushi Blood RN) 0951 (Given - Provider: Karli Carroll RN) 1050 (Given - Provider: Sylvain Cadet, RN) mycophenolate (CELLCEPT) capsule 250 mg 250 mg, [...] refused) 1048 (Given - Provider: Sylvain Cadet, RN) sennosides-docusate (PERICOLACE) 8.6-50 MG per tablet [...] (Canceled Entry - Provider: Sylvain Cadet, JANA) sodium chloride 0.9 % flush 3 mL 3 mL, Intravenous, Every 12 Hours Scheduled, First dose on Mon04/29/20 at 2130 1854 (Canceled Entry - Provider: Karli Carroll RN)2025 (Not Given - Provider: Aydin Keller RN - Reason: Loss of IV access) 0953 (Not Given - Provider: Karli Carroll RN - Reason: Order parameters not met)2310 (Canceled Entry - Provider: Aydin Keller RN [...] = Pain Score of 7-10, CPOT 5-8 8289 (Given - Provider: Aydin Keller RN) 0939 (Given - Provider: Karli Carroll RN)2127 (Given - Provider: Aydin Keller RN) 1128 (Given - Provider: Sylvain Cadet RN) labetalol (NORMODYNE,TRANDATE) injection 10 mg 10 mg, Intravenous, Every 8 Hours PRN, High Blood Pressure, Starting on Mon05/05/20 at 1617, As needed for SBP greater than 180 with HR over 70. Give by slow IV Push each 20mg (or less) over 2 minutes naloxone (NARCAN) injection 0.4 mg(Linked Group 2) 0.4 mg, Intravenous, Every 5 Minutes PRN, Respiratory Depression, Starting on Mon04/29/20 at 203, If respiratory rate is less than 8 [...] documented as of this encounter Care Teams Psychiatric Assistant Relationship Specialty Start Date End Date Edgar Fournier MD [address] [place], [place] [id number] PCP - General Family Medicine 04/27/20 documented as of this encounter
--- OUTSIDE RECORDS SUMMARY | 2024-07-12 12:19 | XMS_ITS | Encounter Summary ---
[facility] Address [address] [place] [address] Care Team Providers Care Consumer Science Teacher Name Role Phone Edgar Fournier MD Primary Care Provider [phone] Reason for Visit * Reason Comments Back Pain Multiple complaints * Auth/Cert Specialty Diagnoses / Procedures Referred By Contac t Referred To Contact Diagnoses Acute right-sided low back pain with right-sided sciatica Sepsis Procedures na Referral ID Status Reason Start Date Expiration Date Visits Re quested Visits Authorized [id number] 1 1 Encounter Details Date Type Department Care Team (Late st Contact Info) Description 04/29/2020 5:45 PM EDT - 04/29/2020 8:14 PM EDT Surgery [facility] [address] [place] [id number] Yinka Garnica MD [address] [address] LUMBAR LAMINECTOMY DISCECTOMY DECOMPRESSION POSTERIOR L4-5 [80803 (CPT??)] Social History Tobacco Use Types Packs/Day [...] Sign Reading Time Taken Comments Blood Pressure 159/82 04/29/2020 8:00 PM EDT Pulse 118 04/29/2020 8:00 PM EDT Temperature 36.5 ??C (97.7 ??F) 04/29/2020 8:00 PM ED T Respiratory Rate 19 04/29/2020 8:00 PM EDT Oxygen Saturation 94% 04/29/2020 8:00 PM EDT Inhaled Oxygen Concentration - - Weight 122 kg (268 lb) 04/29/2020 3:51 PM EDT Height 170.2 cm (5' 7 ) 04/29/2020 3:51 PM EDT Body Mass Index 41.97 04/29/2020 3:51 PM EDT documented in this encounter Discharge Summaries * Ginger Murphy RN - 05/13/2020 2:12 PM EDT Images from the original note were not included. RollinsBryny Ivelisse (45 y.o. Male) Date of Social Security Number Address Home Phone N 1975 [phone] [facility] [address] [id number] [employer] Marital Status None Admission Date Admission Type Admitting Provider Attending Provider Department, Room/Bed 04/28/20 Emergency Gabbi Paul II, Gabbi Guallpa II, [facility], S386/1 Discharge Date Discharge Disposition Discharge Destination Home or Self Care Attending Provider: Gabbi Paul II, DO Allergies: No Known Allergies Isolation: None Infection: None Code Status: CPR Ht: 170.2 cm (67 ) Wt: 122 kg (268 lb) Admission Cmt: None Principal Problem: None Active Insurance as of 04/28/2020 Primary Coverage Payor Plan Insurance Group Employer/Plan Group [place] Address Payor Plan Phone Number Payor Plan Fax Number Effective Dates [address] 04/27/2020 - None Entered [facility] [address] Subscriber Name Subscriber Date Member ID LEONCIO ROLLINS 1975 [id number] Emergency Contacts Dental Insurance Biller (Rel.) Home Phone Work Phone Mobile Phone KYM ROLLINS (Spouse) [phone] -- [phone] Emergency Contact Information Name Relation Home Work Mobile KYM ROLLINS Spouse [phone] History & Physical Keara Berg DO at 04/28/20 1152 [facility] Medicine Services HISTORY AND PHYSICAL Patient [...] of 89 over the weekend. States at [place] [facility] they gave him a prescription for [...] Units Date/Time MRI Lumbar Spine Without Contrast [[id number]] Collected: 04/28/20 1058 Updated: 04/28/20 1111 Narrative: [...] roots bilaterally. CT Abdomen Pelvis Without Contrast [[id number]] Collected: 04/28/20640 Updated: 04/28/20643 Narrative: INDICATION: Post [...] 6:41 AM Workstation Name: [facility] CT Chest Without Contrast [[id number]] Collected: 04/28/20633 Updated: 04/28/20635 Narrative: INDICATION: Liver [...] AM Workstation Name: [facility] [place] CT Lumbar Spine Without Contrast [[id number]] Collected: 04/28/20627 Updated: 04/28/20629 Narrative: INDICATION: Pain [...] AM Workstation Name: [facility] [place] XR Chest 1 View [[id number]] Collected: 04/28/20 0158 Updated: 04/28/20199 Narrative: CR Chest 1 Vw INDICATION: Weakness and dizziness on arrival COMPARISON: None available. FINDINGS: Single portable AP view(s) of the chest. The heart and mediastinal contours are normal. The lungs are clear. No pneumothorax or pleural effusion. Impression: No acute cardiopulmonary findings. Signer Name: Gabino Herr MD Signed: 04/28/2020 1:58 AM Workstation Name: RSLFALKIR- [facility] [place] Assessment/Plan Assessment & Plan Active Hospital Problems [...] Gabbi Paul II, DO at 05/13/20 1339 [facility] Services DISCHARGE SUMMARY Patient Name: [...] HD. I have d/w Dr. Cheney, his race car mechanic, who accepts plan. Patient will present to HD center [facility] for vanco following his HD treatments. [...] Date/Time Wound Culture - Wound, Spine, Lumbar [[id number]] (Abnormal) (Susceptibility) Collected: 04/29/20 1843 Lab Status: [...] vitro. Fungus Culture - Tissue, Back, Lower [[id number]] Collected: 04/29/201914 Lab Status: Preliminary result Specimen: Tissue from Back, Lower Updated: 05/06/201999 Fungus Culture No fungus isolated at 1 week AFB Culture - Tissue, Back, Lower [[id number]] Collected: 04/29/201914 Lab Status: Preliminary result Specimen: Tissue from Back, Lower Updated: 05/06/201999 AFB Culture No AFB isolated at 1 week AFB Stain No acid fast bacilli seen on concentrated smear Anaerobic Culture - Tissue, Back, Lower [[id number]] Collected: 04/29/20 1915 Lab Status: Final result Specimen: Tissue from Back, Lower Updated: 05/04/20 0858 Anaerobic Culture No anaerobes isolated at 5 days Anaerobic Culture - Wound, Spine, Lumbar [[id number]] Collected: 04/29/20 1843 Lab Status: Final result Specimen: Wound from Spine, Lumbar Updated: 05/04/20 0858 Anaerobic Culture No anaerobes isolated at 5 days Blood Culture - Blood, Arm, Right [[id number]] Collected: 04/28/20 0650 Lab Status: Final result Specimen: Blood from Arm, Right Updated: 05/03/20 0800 Blood Culture No growth at 5 days Blood Culture - Blood, Wrist, Right [[id number]] Collected: 04/28/20 0701 Lab Status: Final result Specimen: Blood from Wrist, Right Updated: 05/03/20 0800 Blood Culture No growth at 5 days Tissue / Bone Culture - Tissue, Back, Lower [[id number]] Collected: 04/29/201914 Lab Status: Final result Specimen: Tissue from Back, Lower Updated: 05/02/20 0857 Tissue Culture No growth at 3 days Gram Stain Rare (1+) WBCs seen No organisms seen MRSA Screen, PCR (Inpatient) - Swab, Nares [[id number]] (Normal) Collected: 04/29/20 0150 Lab Status: Final result Specimen: Swab from Nares Updated: 04/29/20 0912 MRSA PCR Negative Narrative: MRSA Negative COVID PRE-OP / PRE-PROCEDURE SCREENING ORDER (NO ISOLATION) - Swab, Nasopharynx [[id number]] (Normal) Collected: 04/28/20 1505 Lab Status: Final result Specimen: Swab from Nasopharynx Updated: 04/28/20 1644 Narrative: The following orders were created for panel order COVID PRE-OP / PRE-PROCEDURE SCREENING ORDER (NO ISOLATION) - Swab, Nasopharynx. Procedure Abnormality Status --------- ------ Respiratory Panel PCR w/...[[id number]] Normal Final result Please view results for these tests on the individual orders. 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, CLOTH BRUSHING AND SUEDING SUPERVISOR Swab in UTM/VTM, 3-4 HR TAT - Swab, Nasopharynx [[id number]] (Normal) Collected: 04/28/20 1505 Lab Status: Final [...] Not Detected Narrative: Fact sheet for providers: https://docs.CAD Best/wp-content/uploads/QNC3677-4722-UJ4.1-EUA-Provi ebz-Doyg-Dpleu-3.pdf Fact sheet for patients: https://docs.CAD Best/wp-content/uploads/EGE9377-0583-HC3.5-ZHO-Rrbwod r-Wdyy-Exmav-1.pdf Imaging Results (All) Procedure Component Value Units Date/Time FL C Arm During Surgery [[id number]] Collected: 04/29/202011 Updated: 04/30/20 1900 Narrative: EXAMINATION: [...] Elpidio Dyer. MRI Lumbar Spine Without Contrast [[id number]] Collected: 04/28/20 1058 Updated: 04/29/20922 Narrative: EXAMINATION: [...] Carlson MD. CT Abdomen Pelvis Without Contrast [[id number]] Collected: 04/28/20640 Updated: 04/28/20643 Narrative: INDICATION: Post [...] MD Signed: 04/28/2020 6:41 AM Workstation Name: [facility] [place] CT Chest Without Contrast [[id number]] Collected: 04/28/2034 Updated: 04/28/20635 Narrative: INDICATION: Liver [...] 6:34 AM Workstation Name: ADRYAN- [facility] [place] [facility] CT Lumbar Spine Without Contrast [[id number]] Collected: 04/28/20627 Updated: 04/28/20629 Narrative: INDICATION: Pain [...] AM Workstation Name: [facility] [place] XR Chest 1 View [[id number]] Collected: 04/28/20 0158 Updated: 04/28/20 020 Narrative: CR Chest 1 Vw INDICATION: Weakness and dizziness on arrival COMPARISON: None available. FINDINGS: Single portable AP view(s) of the chest. The heart and mediastinal contours are normal. The lungs are clear. No pneumothorax or pleural effusion. Impression: No acute cardiopulmonary findings. Signer Name: Gabino Herr MD Signed: 04/28/2020 1:58 AM Workstation Name: [facility] [place] Plan for Follow-up of Pending Labs/Results: [facility] [...] 8 Hours PRN vitamin D 1.25 MG (80554 UT) capsule capsule Commonly known as: ERGOCALCIFEROL [...] minutes on this discharge activity which included: duqa-ah-ctpocjavsshpo with the patient, reviewing the data in the system, coordination of the care with the nursing staff as well as consultants, documentation, and entering orders. 1346 * Gabbi Paul II, DO - 05/13/2020 1:39 PM EDT Images from the original note were not included. [facility] Services DISCHARGE SUMMARY Patient Name: [...] HD. I have d/w Dr. Cheney, his race car mechanic, who accepts plan. Patient will present to HD center [facility] for vanco following his HD treatments. [...] Date/Time Wound Culture - Wound, Spine, Lumbar [[id number]] (Abnormal) (Susceptibility) Collected: 04/29/201842 Lab Status: Edited [...] vitro. Fungus Culture - Tissue, Back, Lower [[id number]] Collected: 04/29/201914 Lab Status: Preliminary result Specimen: Tissue from Back, Lower Updated: 05/06/201999 Fungus Culture No fungus isolated at 1 week AFB Culture - Tissue, Back, Lower [[id number]] Collected: 04/29/201914 Lab Status: Preliminary result Specimen: Tissue from Back, Lower Updated: 05/06/201999 AFB Culture No AFB isolated at 1 week AFB Stain No acid fast bacilli seen on concentrated smear Anaerobic Culture - Tissue, Back, Lower [[id number]] Collected: 04/29/201914 Lab Status: Final result Specimen: Tissue from Back, Lower Updated: 05/04/20 0858 Anaerobic Culture No anaerobes isolated at 5 days Anaerobic Culture - Wound, Spine, Lumbar [[id number]] Collected: 04/29/201842 Lab Status: Final result Specimen: Wound from Spine, Lumbar Updated: 05/04/20 0858 Anaerobic Culture No anaerobes isolated at 5 days Blood Culture - Blood, Arm, Right [[id number]] Collected: 04/28/20 0650 Lab Status: Final result Specimen: Blood from Arm, Right Updated: 05/03/20 0800 Blood Culture No growth at 5 days Blood Culture - Blood, Wrist, Right [[id number]] Collected: 04/28/20 0701 Lab Status: Final result Specimen: Blood from Wrist, Right Updated: 05/03/20 0800 Blood Culture No growth at 5 days Tissue / Bone Culture - Tissue, Back, Lower [[id number]] Collected: 04/29/20 1915 Lab Status: Final result Specimen: Tissue from Back, Lower Updated: 05/02/20 0857 Tissue Culture No growth at 3 days Gram Stain Rare (1+) WBCs seen No organisms seen MRSA Screen, PCR (Inpatient) - Swab, Nares [[id number]] (Normal) Collected: 04/29/20 0150 Lab Status: Final result Specimen: Swab from Nares Updated: 04/29/20 0912 MRSA PCR Negative Narrative: MRSA Negative COVID PRE-OP / PRE-PROCEDURE SCREENING ORDER (NO ISOLATION) - Swab, Nasopharynx [[id number]] (Normal) Collected: 04/28/20 1505 Lab Status: Final result Specimen: Swab from Nasopharynx Updated: 04/28/20 1644 Narrative: The following orders were created for panel order COVID PRE-OP / PRE-PROCEDURE SCREENING ORDER (NO ISOLATION) - Swab, Nasopharynx. Procedure Abnormality Status --------- ------ Respiratory Panel PCR w/...[[id number]] Normal Final result Please view results for these tests on the individual orders. 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, CLOTH BRUSHING AND SUEDING SUPERVISOR Swab in UTM/VTM, 3-4 HR TAT - Swab, Nasopharynx [[id number]] (Normal) Collected: 04/28/20 1505 Lab Status: Final [...] Not Detected Narrative: Fact sheet for providers: https://docs.CAD Best/wp-content/uploads/SXA8313-1586-PW6.1-EUA-Provi ezm-Qjdp-Ddjsp-3.pdf Fact sheet for patients: https://docs.[employer] Best/wp-content/uploads/IKS4230-2760-OJ5.5-UUH-Qngsrj b-Wdwn-Akwtb-1.pdf Imaging Results (All) Procedure Component Value Units Date/Time FL C Arm During Surgery [[id number]] Collected: 04/29/202011 Updated: 04/30/20 190 Narrative: EXAMINATION: [...] Elpidio Dyer. MRI Lumbar Spine Without Contrast [[id number]] Collected: 04/28/20 1058 Updated: 04/29/20 09 Narrative: [...] Carlson MD. CT Abdomen Pelvis Without Contrast [[id number]] Collected: 04/28/20640 Updated: 04/28/20643 Narrative: INDICATION: Post [...] AM Workstation Name: [facility] [place] CT Chest Without Contrast [[id number]] Collected: 04/28/20633 Updated: 04/28/20635 Narrative: INDICATION: Liver [...] AM Workstation Name: [facility] [place] CT Lumbar Spine Without Contrast [[id number]] Collected: 04/28/20627 Updated: 04/28/20629 Narrative: INDICATION: Pain [...] MD Signed: 04/28/2020 6:28 AM Workstation Name: [facility] XR Chest 1 View [[id number]] Collected: 04/28/20 0158 Updated: 04/28/20 020 Narrative: CR Chest 1 Vw INDICATION: Weakness and dizziness on arrival COMPARISON: None available. FINDINGS: Single portable AP view(s) of the chest. The heart and mediastinal contours are normal. The lungs are clear. No pneumothorax or pleural effusion. Impression: No acute cardiopulmonary findings. Signer Name: Gabino Herr MD Signed: 04/28/2020 1:58 AM Workstation Name: [facility] Plan for Follow-up of Pending Labs/Results[facility] Order Current Status AFB Culture [...] 8 Hours PRN vitamin D 1.25 MG (02788 UT) capsule capsule Commonly known as: ERGOCALCIFEROL [...] Up: 1 Month if pending use the [facility] process Time Spent on Discharge: I spent 45 minutes on this discharge activity which included: ebsq-te-smbwtmvgmmvbr with the patient, reviewing the data in the system, coordination of the care with the nursing staff as well as consultants, documentation, and entering orders. documented in this encounter Discharge Instructions * Discharge Instr - Diet* Roxi Cook, RN - 05/13/2020 1:54 PM EDT Consistent Carbohydrate diet. * Attachments The following attachments cannot be sent through Care Everywhere. * Laminectomy Care After ([place]) * Dialysis ([place]) * Acetaminophen; Hydrocodone tablets or capsules ([place]) * Preventing Constipation After Surgery ([place]) * Fall Prevention in the Home Adult Bbgq-ax-Iyln ([place]) * Understanding Your Risk for Falls ([place]) documented in this encounter Medications at Time [...] 05/13/2020 3 vitamin D (ERGOCALCIFEROL) 1.25 MG (06069 UT) capsule capsule Take 1 capsule by mouth 2 (Two) Times a Week. Takes on Monday and 4 documented as of this encounter Progress Notes * Cayetano Rodriguez MD - 05/13/2020 4:03 PM EDT [facility] Progress Note Date of Admission: 04/28/2020 [...] He was seen at several ERs including [facility] given Keflex with some improvement. Now [...] agree with close follow-up with transplant team Carlos at high risk for need for readmission PLAN: Continue vancomycin dosed by pharmacy on hemodialysis x5 more weeks Continue doxycycline Monitor CBCcmp esr and CRP weekly Agree with close follow-up with [facility] transplant team at high risk for need for readmission with complexity of case with ongoing immune suppression and lumbar spine discitis and osteomyelitis difficulty with ambulation Cayetano Rodriguez MD 05/11/2020 * Ginger Murphy RN - 05/13/2020 2:11 PM EDT Continued Stay Note [facility] Patient Name: Leoncio Rollins Today's Date: 05/13/2020 Admit Date: 04/28/2020 Discharge Plan Row Name 05/13/20 1409 Plan Plan Home w/ HH Provided Post Acute Provider List? Yes Post Acute Provider List Home Health Patient/Family in Agreement with Plan yes Plan Comments Per patient request HH has been arranged w/ [facility] for PT/OT. Referral made to Domenic and she is aware of patient's pending dc today. DC summary has been faxed to [facility] [place] No other needs noted. Plan is home w/ HH and outpatient HD at [facility] MWF. to transport. CM following. Final Discharge Disposition Code 06 - home with home health care Discharge Codes No documentation. Expected Discharge Date and Time Expected Discharge Date Expected Discharge Time May 13, 2020 Ginger Murphy RN * Gabbi Paul II, DO - 05/13/2020 12:44 PM EDT Images from the original note were not included. [facility] PROGRESS NOTE Patient Name: [...] Date/Time Wound Culture - Wound, Spine, Lumbar [[id number]] (Abnormal) (Susceptibility) Collected: 04/29/201842 Lab Status: Edited [...] vitro. Fungus Culture - Tissue, Back, Lower [[id number]] Collected: 04/29/201914 Lab Status: Preliminary result Specimen: Tissue from Back, Lower Updated: 05/06/201999 Fungus Culture No fungus isolated at 1 week AFB Culture - Tissue, Back, Lower [[id number]] Collected: 04/29/201914 Lab Status: Preliminary result Specimen: Tissue from Back, Lower Updated: 05/06/201999 AFB Culture No AFB isolated at 1 week AFB Stain No acid fast bacilli seen on concentrated smear Anaerobic Culture - Tissue, Back, Lower [[id number]] Collected: 04/29/201914 Lab Status: Final result Specimen: Tissue from Back, Lower Updated: 05/04/20 0858 Anaerobic Culture No anaerobes isolated at 5 days Anaerobic Culture - Wound, Spine, Lumbar [[id number]] Collected: 04/29/201842 Lab Status: Final result Specimen: Wound from Spine, Lumbar Updated: 05/04/20 0858 Anaerobic Culture No anaerobes isolated at 5 days Blood Culture - Blood, Arm, Right [[id number]] Collected: 04/28/20 0650 Lab Status: Final result Specimen: Blood from Arm, Right Updated: 05/03/20 0800 Blood Culture No growth at 5 days Blood Culture - Blood, Wrist, Right [[id number]] Collected: 04/28/20 0701 Lab Status: Final result Specimen: Blood from Wrist, Right Updated: 05/03/20 0800 Blood Culture No growth at 5 days Tissue / Bone Culture - Tissue, Back, Lower [[id number]] Collected: 04/29/20 1915 Lab Status: Final result Specimen: Tissue from Back, Lower Updated: 05/02/20 0857 Tissue Culture No growth at 3 days Gram Stain Rare (1+) WBCs seen No organisms seen MRSA Screen, PCR (Inpatient) - Swab, Nares [[id number]] (Normal) Collected: 04/29/20 0150 Lab Status: Final result Specimen: Swab from Nares Updated: 04/29/20 0912 MRSA PCR Negative Narrative: MRSA Negative COVID PRE-OP / PRE-PROCEDURE SCREENING ORDER (NO ISOLATION) - Swab, Nasopharynx [[id number]] (Normal) Collected: 04/28/20 1505 Lab Status: Final result Specimen: Swab from Nasopharynx Updated: 04/28/20 1644 Narrative: The following orders were created for panel order COVID PRE-OP / PRE-PROCEDURE SCREENING ORDER (NO ISOLATION) - Swab, Nasopharynx. Procedure Abnormality Status --------- ------ Respiratory Panel PCR w/...[[id number]] Normal Final result Please view results for these tests on the individual orders. 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, CLOTH BRUSHING AND SUEDING SUPERVISOR Swab in UTM/NYM, 3-4 HR TAT - Swab, Nasopharynx [[id number]] (Normal) Collected: 04/28/20 1505 Lab Status: Final [...] Not Detected Narrative: Fact sheet for providers: https://docs.[employer] Best/wp-content/uploads/GZF9960-9199-PY5.1-EUA-Provi ohy-Vjbn-Xazlb-3.pdf Fact sheet for patients: https://docs.[employer] Best/wp-content/uploads/HWD3852-4012-HP7.6-CQX-Arfahq b-Usll-Kohjc-1.pdf Imaging Results (Last 24 Hours) No results [...] to Arrest): Full if pending use the [facility] process * Vivek Ramos RPH - 05/13/2020 9:58 AM EDT Pharmacy Consult-Vancomycin Dosing Loencio Rollins is a 45 y.o. 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 Intake & Output (last 3 days) 05/10 701 - 05/11 0705/11 - 05/12 0705/12 07 - 05/13 0705/13 07 - 05/14 07 [address]O. [address] 150 360 IV Piggyback [...] adjust regimen as necessary. Vivek Ramos PharmD [employer] 05/13/2020 09:58 EDT * Kody Wong MD [...] from the original note were not included. [facility] PROGRESS NOTE Patient Name: [...] Date/Time Wound Culture - Wound, Spine, Lumbar [[id number]] (Abnormal) (Susceptibility) Collected: 04/29/201842 Lab Status: Edited [...] vitro. Fungus Culture - Tissue, Back, Lower [[id number]] Collected: 04/29/201914 Lab Status: Preliminary result Specimen: Tissue from Back, Lower Updated: 05/06/201999 Fungus Culture No fungus isolated at 1 week AFB Culture - Tissue, Back, Lower [[id number]] Collected: 04/29/201914 Lab Status: Preliminary result Specimen: Tissue from Back, Lower Updated: 05/06/201999 AFB Culture No AFB isolated at 1 week AFB Stain No acid fast bacilli seen on concentrated smear Anaerobic Culture - Tissue, Back, Lower [[id number]] Collected: 04/29/201914 Lab Status: Final result Specimen: Tissue from Back, Lower Updated: 05/04/20 0858 Anaerobic Culture No anaerobes isolated at 5 days Anaerobic Culture - Wound, Spine, Lumbar [[id number]] Collected: 04/29/201842 Lab Status: Final result Specimen: Wound from Spine, Lumbar Updated: 05/04/20 0858 Anaerobic Culture No anaerobes isolated at 5 days Blood Culture - Blood, Arm, Right [[id number]] Collected: 04/28/20 0650 Lab Status: Final result Specimen: Blood from Arm, Right Updated: 05/03/20 0800 Blood Culture No growth at 5 days Blood Culture - Blood, Wrist, Right [[id number]] Collected: 04/28/20 0701 Lab Status: Final result Specimen: Blood from Wrist, Right Updated: 05/03/20 0800 Blood Culture No growth at 5 days Tissue / Bone Culture - Tissue, Back, Lower [[id number]] Collected: 04/29/20 1915 Lab Status: Final result Specimen: Tissue from Back, Lower Updated: 05/02/20 0857 Tissue Culture No growth at 3 days Gram Stain Rare (1+) WBCs seen No organisms seen MRSA Screen, PCR (Inpatient) - Swab, Nares [[id number]] (Normal) Collected: 04/29/20 0150 Lab Status: Final result Specimen: Swab from Nares Updated: 04/29/20 0912 MRSA PCR Negative Narrative: MRSA Negative COVID PRE-OP / PRE-PROCEDURE SCREENING ORDER (NO ISOLATION) - Swab, Nasopharynx [[id number]] (Normal) Collected: 04/28/20 1505 Lab Status: Final result Specimen: Swab from Nasopharynx Updated: 04/28/20 1644 Narrative: The following orders were created for panel order COVID PRE-OP / PRE-PROCEDURE SCREENING ORDER (NO ISOLATION) - Swab, Nasopharynx. Procedure Abnormality Status --------- ------ Respiratory Panel PCR w/...[[id number]] Normal Final result Please view results for these tests on the individual orders. 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, CLOTH BRUSHING AND SUEDING SUPERVISOR Swab in UTM/VTM, 3-4 HR TAT - Swab, Nasopharynx [[id number]] (Normal) Collected: 04/28/20 1505 Lab Status: Final [...] Not Detected Narrative: Fact sheet for providers: https://docs.[employer] Best/wp-content/uploads/GYH2800-4176-TG3.1-EUA-Provi gac-Ybwu-Qxfvo-3.pdf Fact sheet for patients: https://docs.[employer] Best/wp-content/uploads/WZB8687-4785-MO2.6-ENR-Yafcph i-Acjo-Iwwww-1.pdf Imaging Results (Last 24 Hours) No results [...] to Arrest): Full if pending use the esig process * Ginger Murphy RN - 05/12/2020 9:46 AM EDT Continued Stay Note [facility] Patient Name: Leoncio Rollins Today's Date: 05/12/2020 Admit Date: 04/28/2020 Discharge Plan Row Name 05/12/20 0921 Plan Plan Home w/ oupatient HD Patient/Family in Agreement with Plan yes Plan Comments Spoke w/ patient at bedside. He is now agreeable to outpatient HD three times a wk, with abx in fusion, at [facility] in [place]. Also spoke w/ Marilee at [facility] [place] and chairtimes. Patient will have HD MWF at 1200. CM will faxed the dc summary including abx info to Marilee at [phone] when available. Per Marilee, Dr. Cheney, patient's race car mechanic, has requested for the attending MD or [...] of bed to assess mobility. CM d/w REVIEW MANAGER and PT will attempt to eval patient. [...] Rodriguez MD - 05/11/2020 2:27 PM EDT [facility] Progress Note Date of Admission: 04/28/2020 [...] He was seen at several ERs including [facility] given Keflex with some improvement. 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 Intake & Output (last 3 days) 05/08 701 - 05/09 0705/09 07 - 05/10 0705/10 07 - 05/11 0705/11 - 05/12 0700 [address] 1050 120 [...] to adjust regimen as necessary. Darrian MerrittD, BCPS 05/11/2020 13:28 EDT * Kody Wong [...] from the original note were not included. [facility] Medicine Services PROGRESS NOTE Patient Name: [...] Date/Time Wound Culture - Wound, Spine, Lumbar [[id number]] (Abnormal) (Susceptibility) Collected: 04/29/201842 Lab Status: Edited [...] vitro. Fungus Culture - Tissue, Back, Lower [[id number]] Collected: 04/29/201914 Lab Status: Preliminary result Specimen: Tissue from Back, Lower Updated: 05/06/201999 Fungus Culture No fungus isolated at 1 week AFB Culture - Tissue, Back, Lower [[id number]] Collected: 04/29/201914 Lab Status: Preliminary result Specimen: Tissue from Back, Lower Updated: 05/06/201999 AFB Culture No AFB isolated at 1 week AFB Stain No acid fast bacilli seen on concentrated smear Anaerobic Culture - Tissue, Back, Lower [[id number]] Collected: 04/29/201914 Lab Status: Final result Specimen: Tissue from Back, Lower Updated: 05/04/20 0858 Anaerobic Culture No anaerobes isolated at 5 days Anaerobic Culture - Wound, Spine, Lumbar [[id number]] Collected: 04/29/201842 Lab Status: Final result Specimen: Wound from Spine, Lumbar Updated: 05/04/20 0858 Anaerobic Culture No anaerobes isolated at 5 days Blood Culture - Blood, Arm, Right [[id number]] Collected: 04/28/20 0650 Lab Status: Final result Specimen: Blood from Arm, Right Updated: 05/03/20 0800 Blood Culture No growth at 5 days Blood Culture - Blood, Wrist, Right [[id number]] Collected: 04/28/20 0701 Lab Status: Final result Specimen: Blood from Wrist, Right Updated: 05/03/20 0800 Blood Culture No growth at 5 days Tissue / Bone Culture - Tissue, Back, Lower [[id number]] Collected: 04/29/20 1915 Lab Status: Final result Specimen: Tissue from Back, Lower Updated: 05/02/20 0857 Tissue Culture No growth at 3 days Gram Stain Rare (1+) WBCs seen No organisms seen MRSA Screen, PCR (Inpatient) - Swab, Nares [[id number]] (Normal) Collected: 04/29/20 0150 Lab Status: Final result Specimen: Swab from Nares Updated: 04/29/20 0912 MRSA PCR Negative Narrative: MRSA Negative COVID PRE-OP / PRE-PROCEDURE SCREENING ORDER (NO ISOLATION) - Swab, Nasopharynx [[id number]] (Normal) Collected: 04/28/20 1505 Lab Status: Final result Specimen: Swab from Nasopharynx Updated: 04/28/20 1644 Narrative: The following orders were created for panel order COVID PRE-OP / PRE-PROCEDURE SCREENING ORDER (NO ISOLATION) - Swab, Nasopharynx. Procedure Abnormality Status --------- ------ Respiratory Panel PCR w/...[[id number]] Normal Final result Please view results for these tests on the individual orders. 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, CLOTH BRUSHING AND SUEDING SUPERVISOR Swab in UTM/NYM, 3-4 HR TAT - Swab, Nasopharynx [[id number]] (Normal) Collected: 04/28/20 1505 Lab Status: Final [...] Not Detected Narrative: Fact sheet for providers: https://docs.CAD Best/wp-content/uploads/YGF2849-6945-TR2.1-EUA-Provi fmi-Tvax-Ynhfp-3.pdf Fact sheet for patients: https://docs.[employer]/wp-content/uploads/DFQ4162-9708-JP9.3-QOG-Xiuobh g-Jbgi-Yyeyu-1.pdf Imaging Results (Last 24 Hours) No results [...] from the original note were not included. [facility] Medicine Services PROGRESS NOTE Patient Name: [...] Date/Time Wound Culture - Wound, Spine, Lumbar [[id number]] (Abnormal) (Susceptibility) Collected: 04/29/20 1843 Lab Status: [...] vitro. Fungus Culture - Tissue, Back, Lower [[id number]] Collected: 04/29/20 191 Lab Status: Preliminary result Specimen: Tissue from Back, Lower Updated: 05/06/201999 Fungus Culture No fungus isolated at 1 week AFB Culture - Tissue, Back, Lower [[id number]] Collected: 04/29/201914 Lab Status: Preliminary result Specimen: Tissue from Back, Lower Updated: 05/06/20 2000 AFB Culture No AFB isolated at 1 week AFB Stain No acid fast bacilli seen on concentrated smear Anaerobic Culture - Tissue, Back, Lower [[id number]] Collected: 04/29/201914 Lab Status: Final result Specimen: Tissue from Back, Lower Updated: 05/04/20 0858 Anaerobic Culture No anaerobes isolated at 5 days Anaerobic Culture - Wound, Spine, Lumbar [[id number]] Collected: 04/29/20 1843 Lab Status: Final result Specimen: Wound from Spine, Lumbar Updated: 05/04/20 0858 Anaerobic Culture No anaerobes isolated at 5 days Blood Culture - Blood, Arm, Right [[id number]] Collected: 04/28/20 0650 Lab Status: Final result Specimen: Blood from Arm, Right Updated: 05/03/20 0800 Blood Culture No growth at 5 days Blood Culture - Blood, Wrist, Right [[id number]] Collected: 04/28/20 0701 Lab Status: Final result Specimen: Blood from Wrist, Right Updated: 05/03/20 0800 Blood Culture No growth at 5 days Tissue / Bone Culture - Tissue, Back, Lower [[id number]] Collected: 04/29/201914 Lab Status: Final result Specimen: Tissue from Back, Lower Updated: 05/02/20 0857 Tissue Culture No growth at 3 days Gram Stain Rare (1+) WBCs seen No organisms seen MRSA Screen, PCR (Inpatient) - Swab, Nares [[id number]] (Normal) Collected: 04/29/20 0150 Lab Status: Final result Specimen: Swab from Nares Updated: 04/29/20 0912 MRSA PCR Negative Narrative: MRSA Negative COVID PRE-OP / PRE-PROCEDURE SCREENING ORDER (NO ISOLATION) - Swab, Nasopharynx [[id number]] (Normal) Collected: 04/28/20 1505 Lab Status: Final result Specimen: Swab from Nasopharynx Updated: 04/28/20 1644 Narrative: The following orders were created for panel order COVID PRE-OP / PRE-PROCEDURE SCREENING ORDER (NO ISOLATION) - Swab, Nasopharynx. Procedure Abnormality Status --------- ------ Respiratory Panel PCR w/...[[id number]] Normal Final result Please view results for these tests on the individual orders. 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, CLOTH BRUSHING AND SUEDING SUPERVISOR Swab in UTM/VTM, 3-4 HR TAT - Swab, Nasopharynx [[id number]] (Normal) Collected: 04/28/20 1505 Lab Status: Final [...] Not Detected Narrative: Fact sheet for providers: https://docs.CAD Best/wp-content/uploads/CML6508-4653-MA2.1-EUA-Provi ioa-Yyqp-Yjsnr-3.pdf Fact sheet for patients: https://docs.[employer] Best/wp-content/uploads/MEM8742-6739-CK6.9-AUL-Mzlerg r-Kwwu-Nzhqs-1.pdf Imaging Results (Last 24 Hours) No results [...] 0.9% NS (MBP) Ordering Provider: Kym Garcia, 1 g over 30 Minutes Intravenous Once [...] Renal Replacement: HD 5 days a week 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 Callie Schwartz PharmD [employer] 05/10/2020 09:23 EDT * Karishma Hodge MD [...] Rodriguez MD - 05/09/2020 4:11 PM EDT [facility] Progress Note Date of Admission: 04/28/2020 [...] He was seen at several ERs including [facility] given Keflex with some improvement. Now admitted with fevers chills leukocytosis MRI revealing lumbar spine discitis osteomyelitis and fluid seen on MRI and epidural space of L5-S1 but no overt neurologic deficits today. ?? Get old records from [facility], it appears no blood cultures were [...] Aydin Srivastava APRN for Dr. Cayetano Rodriguez [facility] * Karishma Hodge MD - 05/09/2020 [...] 170.2 cm (67 ) Documented at 04/27/2020 1171 Admission Weight 125 kg (275 lb) Documented at 04/27/202005/08 0701 - 05/09 0700 In: 1014 [P.O.:1014] [...] from the original note were not included. [facility] Medicine Services PROGRESS NOTE Patient Name: [...] Date/Time Wound Culture - Wound, Spine, Lumbar [[id number]] (Abnormal) (Susceptibility) Collected: 04/29/20 184 Lab Status: [...] vitro. Fungus Culture - Tissue, Back, Lower [[id number]] Collected: 04/29/201914 Lab Status: Preliminary result Specimen: Tissue from Back, Lower Updated: 05/06/201999 Fungus Culture No fungus isolated at 1 week AFB Culture - Tissue, Back, Lower [[id number]] Collected: 04/29/201914 Lab Status: Preliminary result Specimen: Tissue from Back, Lower Updated: 05/06/201999 AFB Culture No AFB isolated at 1 week AFB Stain No acid fast bacilli seen on concentrated smear Anaerobic Culture - Tissue, Back, Lower [[id number]] Collected: 04/29/201914 Lab Status: Final result Specimen: Tissue from Back, Lower Updated: 05/04/20 0858 Anaerobic Culture No anaerobes isolated at 5 days Anaerobic Culture - Wound, Spine, Lumbar [[id number]] Collected: 04/29/20 1843 Lab Status: Final result Specimen: Wound from Spine, Lumbar Updated: 05/04/20 0858 Anaerobic Culture No anaerobes isolated at 5 days Blood Culture - Blood, Arm, Right [[id number]] Collected: 04/28/20 0650 Lab Status: Final result Specimen: Blood from Arm, Right Updated: 05/03/20 0800 Blood Culture No growth at 5 days Blood Culture - Blood, Wrist, Right [[id number]] Collected: 04/28/20 0701 Lab Status: Final result Specimen: Blood from Wrist, Right Updated: 05/03/20 0800 Blood Culture No growth at 5 days Tissue / Bone Culture - Tissue, Back, Lower [[id number]] Collected: 04/29/201914 Lab Status: Final result Specimen: Tissue from Back, Lower Updated: 05/02/20 0857 Tissue Culture No growth at 3 days Gram Stain Rare (1+) WBCs seen No organisms seen MRSA Screen, PCR (Inpatient) - Swab, Nares [[id number]] (Normal) Collected: 04/29/20 0150 Lab Status: Final result Specimen: Swab from Nares Updated: 04/29/20 0912 MRSA PCR Negative Narrative: MRSA Negative COVID PRE-OP / PRE-PROCEDURE SCREENING ORDER (NO ISOLATION) - Swab, Nasopharynx [[id number]] (Normal) Collected: 04/28/20 1505 Lab Status: Final result Specimen: Swab from Nasopharynx Updated: 04/28/201643 Narrative: The following orders were created for panel order COVID PRE-OP / PRE-PROCEDURE SCREENING ORDER (NO ISOLATION) - Swab, Nasopharynx. Procedure Abnormality Status --------- ------ Respiratory Panel PCR w/...[[id number]] Normal Final result Please view results for these tests on the individual orders. 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, CLOTH BRUSHING AND SUEDING SUPERVISOR Swab in UTM/VTM, 3-4 HR TAT - Swab, Nasopharynx [[id number]] (Normal) Collected: 04/28/20 1505 Lab Status: Final [...] Not Detected Narrative: Fact sheet for providers: https://docs.CAD Best/wp-content/uploads/IHA6406-3002-SZ4.1-EUA-Provi sxh-Qtit-Jusgy-3.pdf Fact sheet for patients: https://docs.[employer] Best/wp-content/uploads/FNJ1840-1871-QR1.6-JDM-Szomiw y-Scnn-Oewsv-1.pdf Imaging Results (Last 24 Hours) No results [...] from the original note were not included. [facility] Medicine Services PROGRESS NOTE Patient Name: [...] Date/Time Wound Culture - Wound, Spine, Lumbar [[id number]] (Abnormal) (Susceptibility) Collected: 04/29/20 1843 Lab Status: [...] vitro. Fungus Culture - Tissue, Back, Lower [[id number]] Collected: 04/29/201914 Lab Status: Preliminary result Specimen: Tissue from Back, Lower Updated: 05/06/201999 Fungus Culture No fungus isolated at 1 week AFB Culture - Tissue, Back, Lower [[id number]] Collected: 04/29/201914 Lab Status: Preliminary result Specimen: Tissue from Back, Lower Updated: 05/06/201999 AFB Culture No AFB isolated at 1 week AFB Stain No acid fast bacilli seen on concentrated smear Anaerobic Culture - Tissue, Back, Lower [[id number]] Collected: 04/29/20 191 Lab Status: Final result Specimen: Tissue from Back, Lower Updated: 05/04/20 0858 Anaerobic Culture No anaerobes isolated at 5 days Anaerobic Culture - Wound, Spine, Lumbar [[id number]] Collected: 04/29/20 1843 Lab Status: Final result Specimen: Wound from Spine, Lumbar Updated: 05/04/20 0858 Anaerobic Culture No anaerobes isolated at 5 days Blood Culture - Blood, Arm, Right [[id number]] Collected: 04/28/20 0650 Lab Status: Final result Specimen: Blood from Arm, Right Updated: 05/03/20 0800 Blood Culture No growth at 5 days Blood Culture - Blood, Wrist, Right [[id number]] Collected: 04/28/20 0701 Lab Status: Final result Specimen: Blood from Wrist, Right Updated: 05/03/20 0800 Blood Culture No growth at 5 days Tissue / Bone Culture - Tissue, Back, Lower [[id number]] Collected: 04/29/201914 Lab Status: Final result Specimen: Tissue from Back, Lower Updated: 05/02/20 0857 Tissue Culture No growth at 3 days Gram Stain Rare (1+) WBCs seen No organisms seen MRSA Screen, PCR (Inpatient) - Swab, Nares [[id number]] (Normal) Collected: 04/29/20 0150 Lab Status: Final result Specimen: Swab from Nares Updated: 04/29/20 0912 MRSA PCR Negative Narrative: MRSA Negative COVID PRE-OP / PRE-PROCEDURE SCREENING ORDER (NO ISOLATION) - Swab, Nasopharynx [[id number]] (Normal) Collected: 04/28/20 1505 Lab Status: Final result Specimen: Swab from Nasopharynx Updated: 04/28/20 1644 Narrative: The following orders were created for panel order COVID PRE-OP / PRE-PROCEDURE SCREENING ORDER (NO ISOLATION) - Swab, Nasopharynx. Procedure Abnormality Status --------- ------ Respiratory Panel PCR w/...[[id number]] Normal Final result Please view results for these tests on the individual orders. 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, CLOTH BRUSHING AND SUEDING SUPERVISOR Swab in UTM/VTM, 3-4 HR TAT - Swab, Nasopharynx [[id number]] (Normal) Collected: 04/28/20 1505 Lab Status: Final result Specimen: Swab from Nasopharynx Updated: 04/28/20 1647 ADENOVIRUS, PCR Not Detected Coronavirus 229E Not [...] Not Detected Narrative: Fact sheet for providers: https://docs.[employer] Best/wp-content/uploads/QDH2749-9757-JE7.1-EUA-Provi wba-Jpup-Blrnh-3.pdf Fact sheet for patients: https://docs.[employer]/wp-content/uploads/VHR9708-3348-MR7.5-JSD-Iaqbnw w-Ikyw-Vasvl-1.pdf Imaging Results (Last 24 Hours) No results [...] Rodriguez MD - 05/08/2020 4:01 PM EDT [facility] Progress Note Date of Admission: 04/28/2020 [...] He was seen at several ERs including [facility] given Keflex with some improvement. Now admitted with fevers chills leukocytosis MRI revealing lumbar spine discitis osteomyelitis and fluid seen on MRI and epidural space of L5-S1 but no overt neurologic deficits today. ?? Get old records from [facility], it appears no blood cultures were [...] 05/08/2020 4:00 PM EDT Continued Stay Note [place] Patient Name: Leoncio Rollins Today's Date: 05/08/2020 Admit Date: 04/28/2020 Discharge Plan Row Name 05/08/20 1555 Plan Plan home Plan Comments Case mgt f/u note. Patient currently in dialysis,so charge loader did not get to discuss d/c plan with him. 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 Ht - [...] Date/Time Anaerobic Culture - Tissue, Back, Lower [[id number]] Collected: 04/29/20 191 Lab Status: Final result Specimen: Tissue from Back, Lower Updated: 05/04/20 0858 Anaerobic Culture No anaerobes isolated at 5 days Fungus Culture - Tissue, Back, Lower [[id number]] Collected: 04/29/201914 Lab Status: Preliminary result Specimen: Tissue from Back, Lower Updated: 05/06/20 2000 Fungus Culture No fungus isolated at 1 week Tissue / Bone Culture - Tissue, Back, Lower [[id number]] Collected: 04/29/201914 Lab Status: Final result Specimen: Tissue from Back, Lower Updated: 05/02/20 0857 Tissue Culture No growth at 3 days Gram Stain Rare (1+) WBCs seen No organisms seen AFB Culture - Tissue, Back, Lower [[id number]] Collected: 04/29/201914 Lab Status: Preliminary result Specimen: Tissue from Back, Lower Updated: 05/06/201999 AFB Culture No AFB isolated at 1 week AFB Stain No acid fast bacilli seen on concentrated smear Wound Culture - Wound, Spine, Lumbar [[id number]] (Abnormal) (Susceptibility) Collected: 04/29/201842 Lab Status: Edited [...] vitro. Anaerobic Culture - Wound, Spine, Lumbar [[id number]] Collected: 04/29/201842 Lab Status: Final result Specimen: Wound from Spine, Lumbar Updated: 05/04/20 0858 Anaerobic Culture No anaerobes isolated at 5 days MRSA Screen, PCR (Inpatient) - Swab, Nares [[id number]] (Normal) Collected: 04/29/20 0150 Lab Status: Final result Specimen: Swab from Nares Updated: 04/29/20 0912 MRSA PCR Negative Narrative: MRSA Negative COVID PRE-OP / PRE-PROCEDURE SCREENING ORDER (NO ISOLATION) - Swab, Nasopharynx [[id number]] (Normal) Collected: 04/28/20 1505 Lab Status: Final result Specimen: Swab from Nasopharynx Updated: 04/28/20 1644 Narrative: The following orders were created for panel order COVID PRE-OP / PRE-PROCEDURE SCREENING ORDER (NO ISOLATION) - Swab, Nasopharynx. Procedure Abnormality Status --------- ------ Respiratory Panel PCR w/...[[id number]] Normal Final result Please view results for these tests on the individual orders. 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, CLOTH BRUSHING AND SUEDING SUPERVISOR Swab in UTM/VTM, 3-4 HR TAT - Swab, Nasopharynx [[id number]] (Normal) Collected: 04/28/20 1505 Lab Status: Final [...] Not Detected Narrative: Fact sheet for providers: https://docs.[employer] Best/wp-content/uploads/PDD9010-3026-TF4.1-EUA-Provi eiq-Oblp-Xnjcl-3.pdf Fact sheet for patients: https://docs.[employer]/wp-content/uploads/OOQ3929-9909-MP8.5-QDP-Tmyuji d-Xyfb-Ekviv-1.pdf Evaluation of Level Results from last 7 [...] adjust regimen as necessary. Karli Camp, PharmD [employer] 05/08/2020 13:24 EDT * Angela Romero, RD - 05/08/2020 12:08 PM EDT Clinical Nutrition Reason for Visit: [facility] Patient Name: Leoncio Rollins Date of : [...] Rodriguez MD - 05/07/2020 7:36 PM EDT [facility] Progress Note Date of Admission: 04/28/2020 [...] ?? ASSESSMENT: Patient is a 45-year-old with Kmi with end-stage liver disease underwent transplant on immunosuppressive therapy on home hemodialysis 5 days/week with end-stage renal disease recent right chest walldialysis cath removed with some erythema this was followed by increasing lower back pain which progressed to fevers chills difficulty with ambulation. He was seen at several ERs including [facility] given Keflex with some improvement. Now admitted with fevers chills leukocytosis MRI revealing lumbar spine discitis osteomyelitis and fluid seen on MRI and epidural space of L5-S1 but no overt neurologic deficits today. ?? Get old records from [facility], it appears no blood cultures were [...] from the original note were not included. [facility] Medicine Services PROGRESS NOTE Patient Name: [...] Date/Time Wound Culture - Wound, Spine, Lumbar [[id number]] (Abnormal) (Susceptibility) Collected: 04/29/201842 Lab Status: Edited [...] vitro. Fungus Culture - Tissue, Back, Lower [[id number]] Collected: 04/29/201914 Lab Status: Preliminary result Specimen: Tissue from Back, Lower Updated: 05/06/201999 Fungus Culture No fungus isolated at 1 week AFB Culture - Tissue, Back, Lower [[id number]] Collected: 04/29/201914 Lab Status: Preliminary result Specimen: Tissue from Back, Lower Updated: 05/06/201999 AFB Culture No AFB isolated at 1 week AFB Stain No acid fast bacilli seen on concentrated smear Anaerobic Culture - Tissue, Back, Lower [[id number]] Collected: 04/29/201914 Lab Status: Final result Specimen: Tissue from Back, Lower Updated: 05/04/20 08 Anaerobic Culture No anaerobes isolated at 5 days Anaerobic Culture - Wound, Spine, Lumbar [[id number]] Collected: 04/29/201842 Lab Status: Final result Specimen: Wound from Spine, Lumbar Updated: 05/04/20 0858 Anaerobic Culture No anaerobes isolated at 5 days Blood Culture - Blood, Arm, Right [[id number]] Collected: 04/28/20 0650 Lab Status: Final result Specimen: Blood from Arm, Right Updated: 05/03/20 0800 Blood Culture No growth at 5 days Blood Culture - Blood, Wrist, Right [[id number]] Collected: 04/28/20 0701 Lab Status: Final result Specimen: Blood from Wrist, Right Updated: 05/03/20 0800 Blood Culture No growth at 5 days Tissue / Bone Culture - Tissue, Back, Lower [[id number]] Collected: 04/29/20 1915 Lab Status: Final result Specimen: Tissue from Back, Lower Updated: 05/02/20 0857 Tissue Culture No growth at 3 days Gram Stain Rare (1+) WBCs seen No organisms seen MRSA Screen, PCR (Inpatient) - Swab, Nares [[id number]] (Normal) Collected: 04/29/20 0150 Lab Status: Final result Specimen: Swab from Nares Updated: 04/29/20 0912 MRSA PCR Negative Narrative: MRSA Negative COVID PRE-OP / PRE-PROCEDURE SCREENING ORDER (NO ISOLATION) - Swab, Nasopharynx [[id number]] (Normal) Collected: 04/28/20 1505 Lab Status: Final result Specimen: Swab from Nasopharynx Updated: 04/28/20 1644 Narrative: The following orders were created for panel order COVID PRE-OP / PRE-PROCEDURE SCREENING ORDER (NO ISOLATION) - Swab, Nasopharynx. Procedure Abnormality Status --------- ------ Respiratory Panel PCR w/...[[id number]] Normal Final result Please view results for these tests on the individual orders. 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, CLOTH BRUSHING AND SUEDING SUPERVISOR Swab in UTM/VTM, 3-4 HR TAT - Swab, Nasopharynx [[id number]] (Normal) Collected: 04/28/20 1505 Lab Status: Final [...] Not Detected Narrative: Fact sheet for providers: https://docs.[employer]/wp-content/uploads/YOY4144-1926-QE4.1-Kuldip hyy-Wyqd-Haokk-3.pdf Fact sheet for patients: https://docs.[employer]/wp-content/uploads/RDI2925-9228-YV3.0-CZN-Pcjzzj r-Fujc-Scuhe-1.pdf Imaging Results (Last 24 Hours) No results [...] 05/07/2020 4:47 PM EDT Continued Stay Note [facility] Patient Name: Leoncio Rollins Today's Date: 05/07/2020 Admit Date: 04/28/2020 Discharge Plan Row Name 05/07/20 1642 Plan Plan TBD Plan Comments Case mgt f/u. I spoke with Mr Rollins and at bedside. Discussed home IV antibiotics. He currently does his own home hemodialysis. I spoke with an RN at [facility] ([facility]), she was unsure if he could self administer IV antibiotics through his port at home, she will discuss with natural gas field processing supervisor of clinic and let us know.He could [...] from the original note were not included. [facility] Medicine Services PROGRESS NOTE Patient Name: [...] Date/Time Fungus Culture - Tissue, Back, Lower [[id number]] Collected: 04/29/201914 Lab Status: Preliminary result Specimen: Tissue from Back, Lower Updated: 05/06/201999 Fungus Culture No fungus isolated at 1 week AFB Culture - Tissue, Back, Lower [[id number]] Collected: 04/29/201914 Lab Status: Preliminary result Specimen: Tissue from Back, Lower Updated: 05/06/20 2000 AFB Culture No AFB isolated at 1 week AFB Stain No acid fast bacilli seen on concentrated smear Wound Culture - Wound, Spine, Lumbar [[id number]] (Abnormal) Collected: 04/29/20 1843 Lab Status: Preliminary result Specimen: Wound from Spine, Lumbar Updated: 05/05/20 0944 Wound Culture Rare Staphylococcus, coagulase negative Gram Stain No WBCs or organisms seen Narrative: ID and sensitivity to follow Anaerobic Culture - Tissue, Back, Lower [[id number]] Collected: 04/29/201914 Lab Status: Final result Specimen: Tissue from Back, Lower Updated: 05/04/20 0858 Anaerobic Culture No anaerobes isolated at 5 days Anaerobic Culture - Wound, Spine, Lumbar [[id number]] Collected: 04/29/20 184 Lab Status: Final result Specimen: Wound from Spine, Lumbar Updated: 05/04/20 0858 Anaerobic Culture No anaerobes isolated at 5 days Blood Culture - Blood, Arm, Right [[id number]] Collected: 04/28/20 0650 Lab Status: Final result Specimen: Blood from Arm, Right Updated: 05/03/20 0800 Blood Culture No growth at 5 days Blood Culture - Blood, Wrist, Right [[id number]] Collected: 04/28/20 0701 Lab Status: Final result Specimen: Blood from Wrist, Right Updated: 05/03/20 0800 Blood Culture No growth at 5 days Tissue / Bone Culture - Tissue, Back, Lower [[id number]] Collected: 04/29/20 1915 Lab Status: Final result Specimen: Tissue from Back, Lower Updated: 05/02/20 0857 Tissue Culture No growth at 3 days Gram Stain Rare (1+) WBCs seen No organisms seen MRSA Screen, PCR (Inpatient) - Swab, Nares [[id number]] (Normal) Collected: 04/29/20 0150 Lab Status: Final result Specimen: Swab from Nares Updated: 04/29/20 0912 MRSA PCR Negative Narrative: MRSA Negative COVID PRE-OP / PRE-PROCEDURE SCREENING ORDER (NO ISOLATION) - Swab, Nasopharynx [[id number]] (Normal) Collected: 04/28/20 1505 Lab Status: Final result Specimen: Swab from Nasopharynx Updated: 04/28/20 1644 Narrative: The following orders were created for panel order COVID PRE-OP / PRE-PROCEDURE SCREENING ORDER (NO ISOLATION) - Swab, Nasopharynx. Procedure Abnormality Status --------- ------ Respiratory Panel PCR w/...[[id number]] Normal Final result Please view results for these tests on the individual orders. 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, CLOTH BRUSHING AND SUEDING SUPERVISOR Swab in UTM/VTM, 3-4 HR TAT - Swab, Nasopharynx [[id number]] (Normal) Collected: 04/28/20 1505 Lab Status: Final [...] Not Detected Narrative: Fact sheet for providers: https://docs.[employer]/wp-content/uploads/YVQ9676-0372-YM1.1-EUA-Provi xmv-Ssul-Vixfg-3.pdf Fact sheet for patients: https://docs.[employer]/wp-content/uploads/ZPM9199-5662-FR0.3-YWA-Wiyosp n-Tamt-Ebher-1.pdf Imaging Results (Last 24 Hours) No results [...] of Support Prior to Arrest): Full * Cayeatno Rodriguez MD - 05/06/2020 2:00 PM EDT [facility] Progress Note Date of Admission: 04/28/2020 [...] He was seen at several ERs including [facility] given Keflex with some improvement. Now admitted with fevers chills leukocytosis MRI revealing lumbar spine discitis osteomyelitis and fluid seen on MRI and epidural space of L5-S1 but no overt neurologic deficits today. ?? Get old records from [facility], it appears no blood cultures were [...] mL (VANCOCIN) IVPB 750 mg Ordering Provider: Vivke Ramos RPH 750 mg over 60 Minutes Intravenous Once 05/04/20 1600 05/04/20 1608 05/01/20 1018 cefTRIAXone (ROCEPHIN) 2 g/100 mL 0.9% NS IVPB (MBP) Conn, Marilin reviewed the order on 05/03/20 1242. Ordering [...] 21304/28/20 1915 vancomycin (dosing per levels) Karli Capm RPH reviewed the order on 05/05/20 1041. [...] Renal Replacement: HD 5 days a week OUTSIDE PRODUCTION INSPECTOR. Ht - 170.2 cm (67 ) Wt - 122 kg (268 lb) Estimated Creatinine Clearance: 10.2 mL/min (A) (by C-G formula based on SCr of 11.3 mg/dL (H)). Intake & Output (last 3 days) 05/03 701 - 05/04 0705/04 - 05/05 0705/05 07 - 05/06 0705/06 0700 P.O. 600 250 I.V. (mL/kg) 100 [...] Date/Time Anaerobic Culture - Tissue, Back, Lower [[id number]] Collected: 04/29/201914 Lab Status: Final result Specimen: Tissue from Back, Lower Updated: 05/04/20 0858 Anaerobic Culture No anaerobes isolated at 5 days Fungus Culture - Tissue, Back, Lower [[id number]] Collected: 04/29/201914 Lab Status: Preliminary result Specimen: Tissue from Back, Lower Updated: 05/04/201999 Fungus Culture No fungus isolated at less than 1 week Tissue / Bone Culture - Tissue, Back, Lower [[id number]] Collected: 04/29/201914 Lab Status: Final result Specimen: Tissue from Back, Lower Updated: 05/02/20 0857 Tissue Culture No growth at 3 days Gram Stain Rare (1+) WBCs seen No organisms seen AFB Culture - Tissue, Back, Lower [[id number]] Collected: 04/29/201914 Lab Status: Preliminary result Specimen: Tissue from Back, Lower Updated: 05/04/201999 AFB Culture No AFB isolated at less than 1 week AFB Stain No acid fast bacilli seen on concentrated smear Wound Culture - Wound, Spine, Lumbar [[id number]] (Abnormal) Collected: 04/29/20 1843 Lab Status: Preliminary result Specimen: Wound from Spine, Lumbar Updated: 05/05/20 0944 Wound Culture Rare Staphylococcus, coagulase negative Gram Stain No WBCs or organisms seen Narrative: ID and sensitivity to follow Anaerobic Culture - Wound, Spine, Lumbar [[id number]] Collected: 04/29/20 1843 Lab Status: Final result Specimen: Wound from Spine, Lumbar Updated: 05/04/20 0858 Anaerobic Culture No anaerobes isolated at 5 days MRSA Screen, PCR (Inpatient) - Swab, Nares [[id number]] (Normal) Collected: 04/29/20 0150 Lab Status: Final result Specimen: Swab from Nares Updated: 04/29/20 0912 MRSA PCR Negative Narrative: MRSA Negative COVID PRE-OP / PRE-PROCEDURE SCREENING ORDER (NO ISOLATION) - Swab, Nasopharynx [[id number]] (Normal) Collected: 04/28/20 1505 Lab Status: Final result Specimen: Swab from Nasopharynx Updated: 04/28/20 1644 Narrative: The following orders were created for panel order COVID PRE-OP / PRE-PROCEDURE SCREENING ORDER (NO ISOLATION) - Swab, Nasopharynx. Procedure Abnormality Status --------- ------ Respiratory Panel PCR w/...[[id number]] Normal Final result Please view results for these tests on the individual orders. 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, CLOTH BRUSHING AND SUEDING SUPERVISOR Swab in UTM/VTM, 3-4 HR TAT - Swab, Nasopharynx [[id number]] (Normal) Collected: 04/28/20 1505 Lab Status: Final [...] Not Detected Narrative: Fact sheet for providers: https://docs.[employer]/wp-content/uploads/VWJ2100-6418-RK4.1-EUA-Provi ebt-Izkd-Mpose-3.pdf Fact sheet for patients: https://docs.[employer]/wp-content/uploads/WRP1225-4472-EU6.5-OXX-Rscvgw x-Aimq-Qeadj-1.pdf Blood Culture - Blood, Wrist, Right [[id number]] Collected: 04/28/20 0701 Lab Status: Final result Specimen: Blood from Wrist, Right Updated: 05/03/20 0800 Blood Culture No growth at 5 days Blood Culture - Blood, Arm, Right [[id number]] Collected: 04/28/20 0650 Lab Status: Final result [...] adjust regimen as necessary. Karli Camp PharmD [employer] 05/06/2020 11:14 EDT * Naveen Karishma Cortez MD - 05/06/2020 8:57 AM EDT LOS: [...] Rodriguez MD - 05/05/2020 7:11 PM EDT [facility] Progress Note Date of Admission: 04/28/2020 [...] He was seen at several ERs including [facility] given Keflex with some improvement. Now admitted with fevers chills leukocytosis MRI revealing lumbar spine discitis osteomyelitis and fluid seen on MRI and epidural space of L5-S1 but no overt neurologic deficits today. ?? Get old records from [facility], it appears no blood cultures were [...] 1637 Admit Weight Admit Weight -- ht=67in, tk=215ae; BMI=41.9 Nutrition Prescription Ordered Row Name 05/05/20 [...] from the original note were not included. [facility] Medicine Services PROGRESS NOTE Patient Name: [...] at times though he is not verbalizing. 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 on command bilat w bonecrushing director dermatology, difficult to get him to let go, [...] Date/Time Fungus Culture - Tissue, Back, Lower [[id number]] Collected: 04/29/201914 Lab Status: Preliminary result Specimen: Tissue from Back, Lower Updated: 05/04/201999 Fungus Culture No fungus isolated at less than 1 week AFB Culture - Tissue, Back, Lower [[id number]] Collected: 04/29/201914 Lab Status: Preliminary result Specimen: Tissue from Back, Lower Updated: 05/04/201999 AFB Culture No AFB isolated at less than 1 week AFB Stain No acid fast bacilli seen on concentrated smear Anaerobic Culture - Tissue, Back, Lower [[id number]] Collected: 04/29/201914 Lab Status: Final result Specimen: Tissue from Back, Lower Updated: 05/04/20857 Anaerobic Culture No anaerobes isolated at 5 days Anaerobic Culture - Wound, Spine, Lumbar [[id number]] Collected: 04/29/20 1843 Lab Status: Final result Specimen: Wound from Spine, Lumbar Updated: 05/04/20 0858 Anaerobic Culture No anaerobes isolated at 5 days Blood Culture - Blood, Arm, Right [[id number]] Collected: 04/28/20 0650 Lab Status: Final result Specimen: Blood from Arm, Right Updated: 05/03/20 0800 Blood Culture No growth at 5 days Blood Culture - Blood, Wrist, Right [[id number]] Collected: 04/28/20 0701 Lab Status: Final result Specimen: Blood from Wrist, Right Updated: 05/03/20 0800 Blood Culture No growth at 5 days Tissue / Bone Culture - Tissue, Back, Lower [[id number]] Collected: 04/29/20 1915 Lab Status: Final result Specimen: Tissue from Back, Lower Updated: 05/02/20 0857 Tissue Culture No growth at 3 days Gram Stain Rare (1+) WBCs seen No organisms seen Wound Culture - Wound, Spine, Lumbar [[id number]] (Abnormal) Collected: 04/29/20 1843 Lab Status: Final result Specimen: Wound from Spine, Lumbar Updated: 05/01/20 0812 Wound Culture Rare Staphylococcus, coagulase negative Gram Stain No WBCs or organisms seen MRSA Screen, PCR (Inpatient) - Swab, Nares [[id number]] (Normal) Collected: 04/29/20 0150 Lab Status: Final result Specimen: Swab from Nares Updated: 04/29/20 0912 MRSA PCR Negative Narrative: MRSA Negative COVID PRE-OP / PRE-PROCEDURE SCREENING ORDER (NO ISOLATION) - Swab, Nasopharynx [[id number]] (Normal) Collected: 04/28/20 1505 Lab Status: Final result Specimen: Swab from Nasopharynx Updated: 04/28/20 1644 Narrative: The following orders were created for panel order COVID PRE-OP / PRE-PROCEDURE SCREENING ORDER (NO ISOLATION) - Swab, Nasopharynx. Procedure Abnormality Status --------- ------ Respiratory Panel PCR w/...[[id number]] Normal Final result Please view results for these tests on the individual orders. 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, CLOTH BRUSHING AND SUEDING SUPERVISOR Swab in UTM/VTM, 3-4 HR TAT - Swab, Nasopharynx [[id number]] (Normal) Collected: 04/28/20 1505 Lab Status: Final [...] Not Detected Narrative: Fact sheet for providers: https://docs.[employer]/wp-content/uploads/JFU1491-8876-BG3.1-EUA-Provi pfm-Jlom-Xniii-3.pdf Fact sheet for patients: https://docs.[employer]/wp-content/uploads/UTT2171-6389-HQ7.1-YKR-Zfyvex q-Sqng-Gxktp-1.pdf Imaging Results (Last 24 Hours) No results [...] epidural abscess - BCx negative. Wound cx PLANT SAFETY ENGINEER -Respiratory viral panel negative - MRSA PCR [...] 05/04/2020 4:35 PM EDT Continued Stay Note [facility] Patient Name: Leoncio Rollins Today's Date: [...] Renal Replacement: HD 5 days a week OUTSIDE PRODUCTION INSPECTOR. Ht - 170.2 cm (67 ) Wt - 122 kg (268 lb) Estimated Creatinine Clearance: 10.2 mL/min (A) (by C-G formula based on SCr of 11.3 mg/dL (H)). Intake & Output (last 3 days) 05/01 07 - 05/02 0700 05/02 07 - 05/03 0700 05/03 07 - 05/04 0700 05/04 07 - 05/05 [...] Date/Time Anaerobic Culture - Tissue, Back, Lower [[id number]] Collected: 04/29/201914 Lab Status: Final result Specimen: Tissue from Back, Lower Updated: 05/04/20 0858 Anaerobic Culture No anaerobes isolated at 5 days Tissue / Bone Culture - Tissue, Back, Lower [[id number]] Collected: 04/29/201914 Lab Status: Final result Specimen: Tissue from Back, Lower Updated: 05/02/20 0857 Tissue Culture No growth at 3 days Gram Stain Rare (1+) WBCs seen No organisms seen AFB Culture - Tissue, Back, Lower [[id number]] Collected: 04/29/201914 Lab Status: Preliminary result Specimen: Tissue from Back, Lower Updated: 04/30/20 1225 AFB Stain No acid fast bacilli seen on concentrated smear Wound Culture - Wound, Spine, Lumbar [[id number]] (Abnormal) Collected: 04/29/201842 Lab Status: Final result Specimen: Wound from Spine, Lumbar Updated: 05/01/20 0812 Wound Culture Rare Staphylococcus, coagulase negative Gram Stain No WBCs or organisms seen Anaerobic Culture - Wound, Spine, Lumbar [[id number]] Collected: 04/29/201842 Lab Status: Final result Specimen: Wound from Spine, Lumbar Updated: 05/04/20 0858 Anaerobic Culture No anaerobes isolated at 5 days MRSA Screen, PCR (Inpatient) - Swab, Nares [[id number]] (Normal) Collected: 04/29/20 0150 Lab Status: Final result Specimen: Swab from Nares Updated: 04/29/20 0912 MRSA PCR Negative Narrative: MRSA Negative COVID PRE-OP / PRE-PROCEDURE SCREENING ORDER (NO ISOLATION) - Swab, Nasopharynx [[id number]] (Normal) Collected: 04/28/20 1505 Lab Status: Final result Specimen: Swab from Nasopharynx Updated: 04/28/20 1644 Narrative: The following orders were created for panel order COVID PRE-OP / PRE-PROCEDURE SCREENING ORDER (NO ISOLATION) - Swab, Nasopharynx. Procedure Abnormality Status --------- ------ Respiratory Panel PCR w/...[[id number]] Normal Final result Please view results for these tests on the individual orders. 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, CLOTH BRUSHING AND SUEDING SUPERVISOR Swab in UTM/VTM, 3-4 HR TAT - Swab, Nasopharynx [[id number]] (Normal) Collected: 04/28/20 1505 Lab Status: Final [...] Not Detected Narrative: Fact sheet for providers: https://docs.[employer]/wp-content/uploads/NOX9391-0965-RR5.1-EUA-Provi avw-Zijp-Bxleb-3.pdf Fact sheet for patients: https://docs.[employer]/wp-content/uploads/VQK6508-5433-JB1.5-VVC-Aoymxm e-Vrss-Hlyrx-1.pdf Blood Culture - Blood, Wrist, Right [[id number]] Collected: 04/28/20 0701 Lab Status: Final result Specimen: Blood from Wrist, Right Updated: 05/03/20 0800 Blood Culture No growth at 5 days Blood Culture - Blood, Arm, Right [[id number]] Collected: 04/28/20 0650 Lab Status: Final result [...] Rodriguez MD - 05/04/2020 11:59 AM EDT [facility] Progress Note Date of Admission: 04/28/2020 [...] He was seen at several ERs including [facility] given Keflex with some improvement. Now admitted with fevers chills leukocytosis MRI revealing lumbar spine discitis osteomyelitis and fluid seen on MRI and epidural space of L5-S1 but no overt neurologic deficits today. ?? Get old records from [facility], it appears no blood cultures were [...] from the original note were not included. [facility] Medicine Services PROGRESS NOTE Patient Name: [...] 05/01/20 0907 04/30/20 0759 04/29/20 0618 04/28/20 19204/28/20 0016 SODIUM mmol/L 134* 134* 131* < [...] Date/Time Anaerobic Culture - Tissue, Back, Lower [[id number]] Collected: 04/29/201914 Lab Status: Final result Specimen: Tissue from Back, Lower Updated: 05/04/20 0858 Anaerobic Culture No anaerobes isolated at 5 days Anaerobic Culture - Wound, Spine, Lumbar [[id number]] Collected: 04/29/201842 Lab Status: Final result Specimen: Wound from Spine, Lumbar Updated: 05/04/20 0858 Anaerobic Culture No anaerobes isolated at 5 days Blood Culture - Blood, Arm, Right [[id number]] Collected: 04/28/20 0650 Lab Status: Final result Specimen: Blood from Arm, Right Updated: 05/03/20 0800 Blood Culture No growth at 5 days Blood Culture - Blood, Wrist, Right [[id number]] Collected: 04/28/20 0701 Lab Status: Final result Specimen: Blood from Wrist, Right Updated: 05/03/20 0800 Blood Culture No growth at 5 days Tissue / Bone Culture - Tissue, Back, Lower [[id number]] Collected: 04/29/201914 Lab Status: Final result Specimen: Tissue from Back, Lower Updated: 05/02/20 0857 Tissue Culture No growth at 3 days Gram Stain Rare (1+) WBCs seen No organisms seen Wound Culture - Wound, Spine, Lumbar [[id number]] (Abnormal) Collected: 04/29/201842 Lab Status: Final result Specimen: Wound from Spine, Lumbar Updated: 05/01/20 0812 Wound Culture Rare Staphylococcus, coagulase negative Gram Stain No WBCs or organisms seen AFB Culture - Tissue, Back, Lower [[id number]] Collected: 04/29/201914 Lab Status: Preliminary result Specimen: Tissue from Back, Lower Updated: 04/30/20 1225 AFB Stain No acid fast bacilli seen on concentrated smear MRSA Screen, PCR (Inpatient) - Swab, Nares [[id number]] (Normal) Collected: 04/29/20 0150 Lab Status: Final result Specimen: Swab from Nares Updated: 04/29/20 0912 MRSA PCR Negative Narrative: MRSA Negative COVID PRE-OP / PRE-PROCEDURE SCREENING ORDER (NO ISOLATION) - Swab, Nasopharynx [[id number]] (Normal) Collected: 04/28/20 1505 Lab Status: Final result Specimen: Swab from Nasopharynx Updated: 04/28/20 1644 Narrative: The following orders were created for panel order COVID PRE-OP / PRE-PROCEDURE SCREENING ORDER (NO ISOLATION) - Swab, Nasopharynx. Procedure Abnormality Status --------- ------ Respiratory Panel PCR w/...[[id number]] Normal Final result Please view results for these tests on the individual orders. 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, CLOTH BRUSHING AND SUEDING SUPERVISOR Swab in UTM/VTM, 3-4 HR TAT - Swab, Nasopharynx [[id number]] (Normal) Collected: 04/28/20 1505 Lab Status: Final [...] Not Detected Narrative: Fact sheet for providers: https://docs.[employer]/wp-content/uploads/XVI8902-2642-KX8.1-EUA-Provi qpo-Kpqi-Nrxst-3.pdf Fact sheet for patients: https://docs.[employer]/wp-content/uploads/JBR9228-9448-IE1.7-NLI-Rawesy z-Kajc-Xzzqc-1.pdf Imaging Results (Last 24 Hours) No results [...] epidural abscess - BCx negative. 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 cx PLANT SAFETY ENGINEER -Respiratory viral panel negative - MRSA PCR [...] MD Signed: 04/28/2020 6:41 AM Workstation Name: [facility] Ct Chest Without Contrast Result Date: [...] MD Signed: 04/28/2020 6:34 AM Workstation Name: [facility] Ct Lumbar Spine Without Contrast Result [...] 04/28/2020 6:28 AM Workstation Name: [id number] Mri Lumbar Spine Without Contrast Result [...] 1:58 AM Workstation Name: [id number] Fl C Arm During Surgery Result [...] region 3. Acute renal failure on dialysis ([facility]) 4. Bandemia 5. Abscess in epidural [...] from the original note were not included. [facility] Medicine Services PROGRESS NOTE Patient Name: [...] Date/Time Blood Culture - Blood, Arm, Right [[id number]] Collected: 04/28/20 0650 Lab Status: Final result Specimen: Blood from Arm, Right Updated: 05/03/20 0800 Blood Culture No growth at 5 days Blood Culture - Blood, Wrist, Right [[id number]] Collected: 04/28/20 07 Lab Status: Final result Specimen: Blood from Wrist, Right Updated: 05/03/20 0800 Blood Culture No growth at 5 days Tissue / Bone Culture - Tissue, Back, Lower [[id number]] Collected: 04/29/20 191 Lab Status: Final result Specimen: Tissue from Back, Lower Updated: 05/02/20 0857 Tissue Culture No growth at 3 days Gram Stain Rare (1+) WBCs seen No organisms seen Anaerobic Culture - Tissue, Back, Lower [[id number]] Collected: 04/29/201914 Lab Status: Preliminary result Specimen: Tissue from Back, Lower Updated: 05/02/20 0716 Anaerobic Culture No anaerobes isolated at 3 days Anaerobic Culture - Wound, Spine, Lumbar [[id number]] Collected: 04/29/20 1843 Lab Status: Preliminary result Specimen: Wound from Spine, Lumbar Updated: 05/02/20 0716 Anaerobic Culture No anaerobes isolated at 3 days Wound Culture - Wound, Spine, Lumbar [[id number]] (Abnormal) Collected: 04/29/20 1843 Lab Status: Final result Specimen: Wound from Spine, Lumbar Updated: 05/01/20 0812 Wound Culture Rare Staphylococcus, coagulase negative Gram Stain No WBCs or organisms seen AFB Culture - Tissue, Back, Lower [[id number]] Collected: 04/29/201914 Lab Status: Preliminary result Specimen: Tissue from Back, Lower Updated: 04/30/20 1225 AFB Stain No acid fast bacilli seen on concentrated smear MRSA Screen, PCR (Inpatient) - Swab, Nares [[id number]] (Normal) Collected: 04/29/20 0150 Lab Status: Final result Specimen: Swab from Nares Updated: 04/29/20 0912 MRSA PCR Negative Narrative: MRSA Negative COVID PRE-OP / PRE-PROCEDURE SCREENING ORDER (NO ISOLATION) - Swab, Nasopharynx [[id number]] (Normal) Collected: 04/28/20 1505 Lab Status: Final result Specimen: Swab from Nasopharynx Updated: 04/28/20 1644 Narrative: The following orders were created for panel order COVID PRE-OP / PRE-PROCEDURE SCREENING ORDER (NO ISOLATION) - Swab, Nasopharynx. Procedure Abnormality Status --------- ------ Respiratory Panel PCR w/...[[id number]] Normal Final result Please view results for these tests on the individual orders. 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, CLOTH BRUSHING AND SUEDING SUPERVISOR Swab in UTM/VTM, 3-4 HR TAT - Swab, Nasopharynx [[id number]] (Normal) Collected: 04/28/20 1505 Lab Status: Final [...] Not Detected Narrative: Fact sheet for providers: https://docs.[employer]/wp-content/uploads/BDZ9915-1006-IQ9.1-EUA-Provi srj-Xonk-Efkhf-3.pdf Fact sheet for patients: https://docs.[employer]/wp-content/uploads/LHA3681-3295-YZ9.5-QTQ-Abvqey o-Dhgq-Qqcof-1.pdf Imaging Results (Last 24 Hours) No results [...] epidural abscess - BCx negative. Wound cx PLANT SAFETY ENGINEER -Respiratory viral panel negative - MRSA PCR [...] region 3. Acute renal failure on dialysis ([facility]) 4. Bandemia 5. Abscess in epidural [...] from the original note were not included. [facility] Medicine Services PROGRESS NOTE Patient Name: [...] days Lab Units 05/01/20 0904/30/20 07504/29/20 1533 04/29/2061704/28/20192304/28/20 0016 SODIUM mmol/L 134* 131* [...] Date/Time Anaerobic Culture - Tissue, Back, Lower [[id number]] Collected: 04/29/201914 Lab Status: Preliminary result Specimen: Tissue from Back, Lower Updated: 05/02/20 0716 Anaerobic Culture No anaerobes isolated at 3 days Anaerobic Culture - Wound, Spine, Lumbar [[id number]] Collected: 04/29/20 184 Lab Status: Preliminary result Specimen: Wound from Spine, Lumbar Updated: 05/02/20 0716 Anaerobic Culture No anaerobes isolated at 3 days Wound Culture - Wound, Spine, Lumbar [[id number]] (Abnormal) Collected: 04/29/201842 Lab Status: Final result Specimen: Wound from Spine, Lumbar Updated: 05/01/20 0812 Wound Culture Rare Staphylococcus, coagulase negative Gram Stain No WBCs or organisms seen Blood Culture - Blood, Arm, Right [[id number]] Collected: 04/28/20 0650 Lab Status: Preliminary result Specimen: Blood from Arm, Right Updated: 05/01/20 0800 Blood Culture No growth at 3 days Blood Culture - Blood, Wrist, Right [[id number]] Collected: 04/28/20 0701 Lab Status: Preliminary result Specimen: Blood from Wrist, Right Updated: 05/01/20 0800 Blood Culture No growth at 3 days Tissue / Bone Culture - Tissue, Back, Lower [[id number]] Collected: 04/29/201914 Lab Status: Preliminary result Specimen: Tissue from Back, Lower Updated: 05/01/20 0704 Tissue Culture No growth at 2 days Gram Stain Rare (1+) WBCs seen No organisms seen AFB Culture - Tissue, Back, Lower [[id number]] Collected: 04/29/201914 Lab Status: Preliminary result Specimen: Tissue from Back, Lower Updated: 04/30/20 1225 AFB Stain No acid fast bacilli seen on concentrated smear MRSA Screen, PCR (Inpatient) - Swab, Nares [[id number]] (Normal) Collected: 04/29/20 0150 Lab Status: Final result Specimen: Swab from Nares Updated: 04/29/20 0912 MRSA PCR Negative Narrative: MRSA Negative COVID PRE-OP / PRE-PROCEDURE SCREENING ORDER (NO ISOLATION) - Swab, Nasopharynx [[id number]] (Normal) Collected: 04/28/20 1505 Lab Status: Final result Specimen: Swab from Nasopharynx Updated: 04/28/201643 Narrative: The following orders were created for panel order COVID PRE-OP / PRE-PROCEDURE SCREENING ORDER (NO ISOLATION) - Swab, Nasopharynx. Procedure Abnormality Status --------- ------ Respiratory Panel PCR w/...[[id number]] Normal Final result Please view results for these tests on the individual orders. 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, CLOTH BRUSHING AND SUEDING SUPERVISOR Swab in UTM/VTM, 3-4 HR TAT - Swab, Nasopharynx [[id number]] (Normal) Collected: 04/28/20 1505 Lab Status: Final [...] Not Detected Narrative: Fact sheet for providers: https://docs.CAD Best/wp-content/uploads/FFL8386-5437-ZO8.1-EUA-Provi zuh-Gzxj-Kkrdn-3.pdf Fact sheet for patients: https://docs.CAD Best/wp-content/uploads/ADG3735-8241-AN8.0-OYJ-Rdrfjq p-Yzqh-Peiwd-1.pdf Imaging Results (Last 24 Hours) No results [...] epidural abscess - BCx negative. 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 - needs yassine review; will d/w pharmacist DVT prophylaxis: SCDs [...] 05/01/2020 11:52 AM EDT Continued Stay Note [facility] Patient Name: Leoncio Rollins Today's Date: [...] would need to fully participate w/ PT/OT. [facility] does not accept dialysis patients at this time so patient would be referred to acute rehab facilities out of the area. Plan pending tbd pending progress w/PT and medical course. CM following. Discharge Codes No documentation. 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 Inpatient scheduled for TRSa. Ht - 170.2 [...] / Bone Culture - Tissue, Back, Lower [[id number]] Collected: 04/29/201914 Lab Status: Preliminary result Specimen: Tissue from Back, Lower Updated: 05/01/20 0704 Tissue Culture No growth at 2 days Gram Stain Rare (1+) WBCs seen No organisms seen AFB Culture - Tissue, Back, Lower [[id number]] Collected: 04/29/201914 Lab Status: Preliminary result Specimen: Tissue from Back, Lower Updated: 04/30/20 1225 AFB Stain No acid fast bacilli seen on concentrated smear Wound Culture - Wound, Spine, Lumbar [[id number]] (Abnormal) Collected: 04/29/20 1843 Lab Status: Final result Specimen: Wound from Spine, Lumbar Updated: 05/01/20 0812 Wound Culture Rare Staphylococcus, coagulase negative Gram Stain No WBCs or organisms seen MRSA Screen, PCR (Inpatient) - Swab, Nares [[id number]] (Normal) Collected: 04/29/20 0150 Lab Status: Final result Specimen: Swab from Nares Updated: 04/29/20 0912 MRSA PCR Negative Narrative: MRSA Negative COVID PRE-OP / PRE-PROCEDURE SCREENING ORDER (NO ISOLATION) - Swab, Nasopharynx [[id number]] (Normal) Collected: 04/28/20 1505 Lab Status: Final result Specimen: Swab from Nasopharynx Updated: 04/28/20 1644 Narrative: The following orders were created for panel order COVID PRE-OP / PRE-PROCEDURE SCREENING ORDER (NO ISOLATION) - Swab, Nasopharynx. Procedure Abnormality Status --------- ------ Respiratory Panel PCR w/...[[id number]] Normal Final result Please view results for these tests on the individual orders. 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, CLOTH BRUSHING AND SUEDING SUPERVISOR Swab in UTM/VTM, 3-4 HR TAT - Swab, Nasopharynx [[id number]] (Normal) Collected: 04/28/20 1505 Lab Status: Final [...] Not Detected Narrative: Fact sheet for providers: https://docs.CAD Best/wp-content/uploads/UBP6926-5917-CY0.1-EUA-Provi zsd-Snda-Nvfpx-3.pdf Fact sheet for patients: https://docs.[employer] Best/wp-content/uploads/GVH1566-7929-GT1.7-ARH-Xbkpom i-Cesd-Uygkn-1.pdf Blood Culture - Blood, Wrist, Right [[id number]] Collected: 04/28/20 0701 Lab Status: Preliminary result Specimen: Blood from Wrist, Right Updated: 05/01/20 0800 Blood Culture No growth at 3 days Blood Culture - Blood, Arm, Right [[id number]] Collected: 04/28/20 0650 Lab Status: Preliminary result [...] regimen as necessary. Thanks, Germán Resendiz, PharmD, [facility] [employer] 05/01/2020 11:35 EDT * Cayetano Rodriguez MD - 05/01/2020 10:41 AM EDT [facility] Progress Note Date of Admission: 04/28/2020 [...] Units Date/Time FL C Arm During Surgery [[id number]] Collected: 04/29/202011 Updated: 04/30/20 190 Narrative: EXAMINATION: [...] Dyer. XR Spine Lumbar Flex & Ext [[id number]] Resulted: 04/30/20 1503 Updated: 04/30/20 1540 PROBLEM [...] He was seen at several ERs including [facility] given Keflex with some improvement. Now admitted with fevers chills leukocytosis MRI revealing lumbar spine discitis osteomyelitis and fluid seen on MRI and epidural space of L5-S1 but no overt neurologic deficits today. ?? Get old records from [facility], it appears no blood cultures were [...] [facility] Cayetano [...] region 3. Acute renal failure on dialysis ([facility]) 4. Bandemia 5. Abscess in epidural [...] mL/hr, Last Rate: 9 mL/hr (04/29/20 160) Vital Signs: Blood pressure 138/77, pulse (!) [...] from the original note were not included. [facility] Medicine Services PROGRESS NOTE Patient Name: [...] Date/Time Wound Culture - Wound, Spine, Lumbar [[id number]] (Abnormal) Collected: 04/29/20 1843 Lab Status: Final result Specimen: Wound from Spine, Lumbar Updated: 05/01/20 0812 Wound Culture Rare Staphylococcus, coagulase negative Gram Stain No WBCs or organisms seen Blood Culture - Blood, Arm, Right [[id number]] Collected: 04/28/20 0650 Lab Status: Preliminary result Specimen: Blood from Arm, Right Updated: 05/01/20 0800 Blood Culture No growth at 3 days Blood Culture - Blood, Wrist, Right [[id number]] Collected: 04/28/20 0701 Lab Status: Preliminary result Specimen: Blood from Wrist, Right Updated: 05/01/20 0800 Blood Culture No growth at 3 days Tissue / Bone Culture - Tissue, Back, Lower [[id number]] Collected: 04/29/201914 Lab Status: Preliminary result Specimen: Tissue from Back, Lower Updated: 05/01/20 0704 Tissue Culture No growth at 2 days Gram Stain Rare (1+) WBCs seen No organisms seen AFB Culture - Tissue, Back, Lower [[id number]] Collected: 04/29/201914 Lab Status: Preliminary result Specimen: Tissue from Back, Lower Updated: 04/30/20 1225 AFB Stain No acid fast bacilli seen on concentrated smear MRSA Screen, PCR (Inpatient) - Swab, Nares [[id number]] (Normal) Collected: 04/29/20 0150 Lab Status: Final result Specimen: Swab from Nares Updated: 04/29/20 0912 MRSA PCR Negative Narrative: MRSA Negative COVID PRE-OP / PRE-PROCEDURE SCREENING ORDER (NO ISOLATION) - Swab, Nasopharynx [[id number]] (Normal) Collected: 04/28/20 1505 Lab Status: Final result Specimen: Swab from Nasopharynx Updated: 04/28/20 1644 Narrative: The following orders were created for panel order COVID PRE-OP / PRE-PROCEDURE SCREENING ORDER (NO ISOLATION) - Swab, Nasopharynx. Procedure Abnormality Status --------- ------ Respiratory Panel PCR w/...[[id number]] Normal Final result Please view results for these tests on the individual orders. 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, CLOTH BRUSHING AND SUEDING SUPERVISOR Swab in UTM/VTM, 3-4 HR TAT - Swab, Nasopharynx [[id number]] (Normal) Collected: 04/28/20 1505 Lab Status: Final [...] Not Detected Narrative: Fact sheet for providers: https://docs.[employer] Best/wp-content/uploads/WJN1049-3340-ID5.1-EUTamy-Chantelli ahl-Kwhb-Ytluu-3.pdf Fact sheet for patients: https://docs.[employer] Best/wp-content/uploads/EAN0986-7367-ST7.1-UNI-Shpwna w-Cinm-Ycwre-1.pdf Imaging Results (Last 24 Hours) Procedure Component Value Units Date/Time FL C Arm During Surgery [[id number]] Collected: 04/29/202011 Updated: 04/30/20 1900 Narrative: EXAMINATION: [...] Dyer. XR Spine Lumbar Flex & Ext [[id number]] Resulted: 04/30/20 1503 Updated: 04/30/20 1540 I [...] last month for his pain. - needs yassine review; will d/w pharmacist DVT prophylaxis: SCDs [...] from the original note were not included. [facility] Medicine Services PROGRESS NOTE Patient Name: [...] Results from last 7 days Lab Units 04/30/2075804/29/20 1746 04/29/2061704/28/20192304/28/20 0016 WBC 10*3/mm3 9.44 -- 11.27* -- 15.73* HEMOGLOBIN g/dL 6.3* 7.4* 7.8* -- 9.3* HEMATOCRIT % 19.6* 23.0* 23.9* -- 27.2* PLATELETS 10*3/mm3 292 -- 285 -- 310 PROCALCITONIN ng/mL -- -- -- 4.48* -- Results from last 7 days Lab Units 04/30/2075804/29/20 1533 04/29/2061704/28/20192304/28/20 0016 SODIUM mmol/L 131* 132* [...] Date/Time AFB Culture - Tissue, Back, Lower [[id number]] Collected: 04/29/201914 Lab Status: Preliminary result Specimen: Tissue from Back, Lower Updated: 04/30/20 1225 AFB Stain No acid fast bacilli seen on concentrated smear Blood Culture - Blood, Arm, Right [[id number]] Collected: 04/28/20 0650 Lab Status: Preliminary result Specimen: Blood from Arm, Right Updated: 04/30/20 0800 Blood Culture No growth at 2 days Blood Culture - Blood, Wrist, Right [[id number]] Collected: 04/28/20 0701 Lab Status: Preliminary result Specimen: Blood from Wrist, Right Updated: 04/30/20 0800 Blood Culture No growth at 2 days Wound Culture - Wound, Spine, Lumbar [[id number]] Collected: 04/29/20 1843 Lab Status: Preliminary result Specimen: Wound from Spine, Lumbar Updated: 04/30/20 0704 Wound Culture No growth at less than 24 hours Gram Stain No WBCs or organisms seen Tissue / Bone Culture - Tissue, Back, Lower [[id number]] Collected: 04/29/201914 Lab Status: Preliminary result Specimen: Tissue from Back, Lower Updated: 04/30/20 0703 Tissue Culture No growth at less than 24 hours Gram Stain Rare (1+) WBCs seen No organisms seen MRSA Screen, PCR (Inpatient) - Swab, Nares [[id number]] (Normal) Collected: 04/29/20 0150 Lab Status: Final result Specimen: Swab from Nares Updated: 04/29/20 0912 MRSA PCR Negative Narrative: MRSA Negative COVID PRE-OP / PRE-PROCEDURE SCREENING ORDER (NO ISOLATION) - Swab, Nasopharynx [[id number]] (Normal) Collected: 04/28/20 1505 Lab Status: Final result Specimen: Swab from Nasopharynx Updated: 04/28/20 1644 Narrative: The following orders were created for panel order COVID PRE-OP / PRE-PROCEDURE SCREENING ORDER (NO ISOLATION) - Swab, Nasopharynx. Procedure Abnormality Status --------- ------ Respiratory Panel PCR w/...[[id number]] Normal Final result Please view results for these tests on the individual orders. 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, CLOTH BRUSHING AND SUEDING SUPERVISOR Swab in UTM/VTM, 3-4 HR TAT - Swab, Nasopharynx [[id number]] (Normal) Collected: 04/28/20 1505 Lab Status: Final [...] Not Detected Narrative: Fact sheet for providers: https://docs.[employer] Best/wp-content/uploads/PKJ4975-0509-JV9.1-EUA-Provi gus-Mgdr-Gyxef-3.pdf Fact sheet for patients: https://docs.[employer] Best/wp-content/uploads/SDO1827-8631-DY0.0-DIX-Pwmpia u-Gqpr-Jvffl-1.pdf Imaging Results (Last 24 Hours) Procedure Component Value Units Date/Time FL C Arm During Surgery [[id number]] Collected: 04/29/202011 Updated: 04/29/202099 Narrative: EXAMINATION: FL [...] last month for his pain. - needs yassine review; will d/w pharmacist DVT prophylaxis: SCDs [...] Rodriguez MD - 04/30/2020 9:12 AM EDT [facility] Progress Note Date of Admission: 04/28/2020 [...] Units Date/Time FL C Arm During Surgery [[id number]] Collected: 04/29/202011 Updated: 04/29/20 2100 Narrative: EXAMINATION: [...] : 04/29/2020 MRI Lumbar Spine Without Contrast [[id number]] Collected: 04/28/20 1058 Updated: 04/29/20 0923 Narrative: [...] He was seen at several ERs including [facility] given Keflex with some improvement. Now admitted with fevers chills leukocytosis MRI revealing lumbar spine discitis osteomyelitis and fluid seen on MRI and epidural space of L5-S1 but no overt neurologic deficits today. ?? Get old records from [facility], it appears no blood cultures were [...] l spine epidural abscess, confusion and requiring assistant terminal manager iv abx and dialysis in [facility] Cayetano Rodriguez MD 04/30/2020 * Tim [...] - 04/29/2020 4:46 PM EDT Talked with dnwn-kp-lduh regarding surgical decision making would recommend L5 lamina foraminotomies-laminectomy and exploration of epidural mass-disc herniation-abscess? Explain complexities ofhis care risk of medical complications given the gentleman's underlying medical comorbidities She is in agreement * Cayetano Rodriguez MD - 04/29/2020 1:20 PM EDT [facility] Progress Note Date of Admission: 04/28/2020 [...] from last 7 days Lab Units 04/29/2018 04/28/20 0016 WBC 10*3/mm3 11.27* 15.73* HEMOGLOBIN [...] Units Date/Time MRI Lumbar Spine Without Contrast [[id number]] Collected: 04/28/20 1058 Updated: 04/29/20 0923 Narrative: [...] He was seen at several ERs including [facility] given Keflex with some improvement. Now admitted with fevers chills leukocytosis MRI revealing lumbar spine discitis osteomyelitis and fluid seen on MRI and epidural space of L5-S1 but no overt neurologic deficits today. ?? 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 Inpatient scheduled for TRSa. Ht - 170.2 cm (67.01 ) Wt - 122 kg (268 lb 1.6 oz) Estimated Creatinine Clearance: 11 mL/min (A) (by C-G formula based on SCr of 10.55 mg/dL (H)). Intake & Output (last 3 days) 04/26 701 - 04/27 0704/27 0701 - 04/28 0700 04/28 0701 - 04/29 0700 04/29 07 - 04/30 0700 I.V. (mL/kg) 310 (2.5) IV Piggyback 850 Total Intake(mL/kg) 1160 (9.5) Urine (mL/kg/hr) 25 (0) Other 2540 Total Output 2565 Net -1405 Microbiology and Radiology Microbiology Results (last 10 days) Procedure Component Value - Date/Time MRSA Screen, PCR (Inpatient) - Swab, Nares [[id number]] (Normal) Collected: 04/29/20 0150 Lab Status: Final result Specimen: Swab from Nares Updated: 04/29/20 09 MRSA PCR Negative Narrative: MRSA Negative COVID PRE-OP / PRE-PROCEDURE SCREENING ORDER (NO ISOLATION) - Swab, Nasopharynx [[id number]] (Normal) Collected: 04/28/20 1505 Lab Status: Final result Specimen: Swab from Nasopharynx Updated: 04/28/20 1644 Narrative: The following orders were created for panel order COVID PRE-OP / PRE-PROCEDURE SCREENING ORDER (NO ISOLATION) - Swab, Nasopharynx. Procedure Abnormality Status --------- ------ Respiratory Panel PCR w/...[[id number]] Normal Final result Please view results for these tests on the individual orders. 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, CLOTH BRUSHING AND SUEDING SUPERVISOR Swab in UTM/NYM, 3-4 HR TAT - Swab, Nasopharynx [[id number]] (Normal) Collected: 04/28/20 1505 Lab Status: Final [...] Not Detected Narrative: Fact sheet for providers: https://docs.[employer] Best/wp-content/uploads/CCJ0543-9720-WD7.1-EUA-Provi pmg-Vnds-Ehdmp-3.pdf Fact sheet for patients: https://docs.[employer] Best/wp-content/uploads/AKV3584-1915-CD3.3-SIJ-Gczmqp b-Xfzu-Xebxa-1.pdf Blood Culture - Blood, Wrist, Right [[id number]] Collected: 04/28/20 0701 Lab Status: Preliminary result Specimen: Blood from Wrist, Right Updated: 04/29/20 0800 Blood Culture No growth at 24 hours Blood Culture - Blood, Arm, Right [[id number]] Collected: 04/28/20 0650 Lab Status: Preliminary result [...] regimen as necessary. Thanks, Germán Resendiz, Wilbert, [facility] [employer] 04/29/2020 10:56 EDT * Ginger Murphy RN - 04/29/2020 11:13 AM EDT Discharge Planning Assessment [facility] Patient Name: Leoncio Rollins Today's Date: [...] w/ his in [place] [facility] 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 [...] from the original note were not included. [facility] Medicine Services PROGRESS NOTE Patient Name: [...] Date/Time Blood Culture - Blood, Arm, Right [[id number]] Collected: 04/28/20 0650 Lab Status: Preliminary result Specimen: Blood from Arm, Right Updated: 04/29/20 0800 Blood Culture No growth at 24 hours Blood Culture - Blood, Wrist, Right [[id number]] Collected: 04/28/20 0701 Lab Status: Preliminary result Specimen: Blood from Wrist, Right Updated: 04/29/20 0800 Blood Culture No growth at 24 hours COVID PRE-OP / PRE-PROCEDURE SCREENING ORDER (NO ISOLATION) - Swab, Nasopharynx [[id number]] (Normal) Collected: 04/28/20 1505 Lab Status: Final result Specimen: Swab from Nasopharynx Updated: 04/28/20 1644 Narrative: The following orders were created for panel order COVID PRE-OP / PRE-PROCEDURE SCREENING ORDER (NO ISOLATION) - Swab, Nasopharynx. Procedure Abnormality Status --------- ------ Respiratory Panel PCR w/...[[id number]] Normal Final result Please view results for these tests on the individual orders. 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, CLOTH BRUSHING AND SUEDING SUPERVISOR Swab in UTM/VTM, 3-4 HR TAT - Swab, Nasopharynx [[id number]] (Normal) Collected: 04/28/20 1505 Lab Status: Final [...] Not Detected Narrative: Fact sheet for providers: https://docs.[employer] Best/wp-content/uploads/QJZ8225-2812-GH4.1-Kuldip tjc-Odgd-Znxsg-3.pdf Fact sheet for patients: https://docs.[employer]/wp-content/uploads/VTQ9733-0294-FE5.5-OTY-Gctpmq f-Boev-Htfiy-1.pdf Imaging Results (Last 24 Hours) Procedure Component Value Units Date/Time MRI Lumbar Spine Without Contrast [[id number]] Collected: 04/28/20 1058 Updated: 04/28/20 1242 Narrative: [...] his pain medications. Pharmacy and I reviewed [facility] in the last time he was given pain medications on [facility] was in February 2020. Per his he has been taking medications for pain and has been seen in the ER 5 times in the last month for his pain. She is unable to tell me what he was being prescribed and if he needs that is been is receivingopioid pain medications. They have not gone any medications from [place] and all prescriptions are obtained in [place] so should be on the [facility]. She also notes that they sometimes are [...] SCREENING ORDER (NO ISOLATION) - Swab, Nasopharynx [[id number]] (Normal) Collected: 04/28/20 1505 Lab Status: Final result Specimen: Swab from Nasopharynx Updated: 04/28/20 1644 Narrative: The following orders were created for panel order COVID PRE-OP / PRE-PROCEDURE SCREENING ORDER (NO ISOLATION) - Swab, Nasopharynx. Procedure Abnormality Status --------- ------ Respiratory Panel PCR w/...[[id number]] Normal Final result Please view results for these tests on the individual orders. 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, CLOTH BRUSHING AND SUEDING SUPERVISOR Swab in UTM/VTM, 3-4 HR TAT - Swab, Nasopharynx [[id number]] (Normal) Collected: 04/28/20 1505 Lab Status: Final [...] Not Detected Narrative: Fact sheet for providers: https://docs.[employer] Best/wp-content/uploads/DEX4765-4402-RT3.1-EUA-Provi ztk-Ujmi-Xvyos-3.pdf Fact sheet for patients: https://docs.[employer] Best/wp-content/uploads/EGI5342-6607-ER5.4-AHK-Amouzm t-Wzqx-Rdksj-1.pdf Evaluation of Level Assessment/Plan: 1. Pharmacy to dose vancomycin for sepsis with a goal trough of 15-20 mcg/mL. 2. Patient received a loading dose of vancomycin 2500mg in ED @ 1026 on 04/28 and then underwent hemodialysis later that evening. 3. Vancomycin random ordered for 04/29 AM. To assess clearance. 4. Monitor renal function, cultures and sensitivities, and clinical status, and adjust regimen as necessary. Pharmacy will continue to follow. Adam Covington PharmD 04/28/2020 19:10 EDT documented in this encounter H&P Notes * Keara Berg DO - 04/28/2020 11:52 AM EDT Images from the original note were not included. [facility] Medicine Services HISTORY AND PHYSICAL Patient [...] of 102 over the weekend. States at [place] ER they gave him a prescription for [...] Units Date/Time MRI Lumbar Spine Without Contrast [[id number]] Collected: 04/28/20 1058 Updated: 04/28/20 1111 Narrative: [...] roots bilaterally. CT Abdomen Pelvis Without Contrast [[id number]] Collected: 04/28/20 0641 Updated: 04/28/20 0644 Narrative: [...] AM Workstation Name: [facility]IT[facility] CT Chest Without Contrast [[id number]] Collected: 04/28/2034 Updated: 04/28/2036 Narrative: INDICATION: Liver [...] AM Workstation Name: [facility] CT Lumbar Spine Without Contrast [[id number]] Collected: 04/28/20627 Updated: 04/28/20629 Narrative: INDICATION: Pain [...] MD Signed: 04/28/2020 6:28 AM Workstation Name: [facility] XR Chest 1 View [[id number]] Collected: 04/28/20 0158 Updated: 04/28/20199 Narrative: CR Chest 1 Vw INDICATION: Weakness and dizziness on arrival COMPARISON: None available. FINDINGS: Single portable AP view(s) of the chest. The heart and mediastinal contours are normal. The lungs are clear. No pneumothorax or pleural effusion. Impression: No acute cardiopulmonary findings. Signer Name: Gabino Herr MD Signed: 04/28/2020 1:58 AM Workstation Name: [id number]- [facility] Assessment/Plan Assessment & Plan Active Hospital Problems [...] PM EDTAssociated Order(s): IP CONSULT TO GASTROENTEROLOGY [facility] Gastroenterology Consult Referring Provider: Keara Berg DO PCP: Edgar Fournier MD Reason for Consultation: History of liver transplant Chief complaint: Back pain History of present illness: Leoncio Rollins is a 45 y.o. male who is admitted with 2-week history of back pain. He is found to have lumbar discitis and epidural abscess. Patient had liver transplant about 2-1/2 years ago at [facility]. He has never had problems with rejection. [...] Vomiting. ??? vitamin D (ERGOCALCIFEROL) 1.25 MG (76721 UT) capsule capsule Take 50,000 Units by [...] kg/m?? Wt Readings from Last 3 Encounters: 09/16/20 122 kg (268 lb) ,body mass index [...] will attempt to discuss with the patient's animal scientist at [place] tomorrow. I discussed the patient's findings and my recommendations with patient Dewey Vidal MD 04/29/20 19:41 EDT * Yinka Garnica MD - 04/28/2020 6:14 PM EDTAssociated Order(s): IP CONSULT TO NEUROSURGERY NEUROSURGERY CONSULTATION Referring Provider: No ref. provider found Patient Care Team: Edgra Fournier MD as PCP - General (Family [...] been bedridden. He has been seen in [place] ED multiple times where they prescribed Keflex. [...] with worsening back pain fevers leukocytosisseen in [facility] room with diagnosis of epidural abscess. Nephrology is consulted for management of ESRD. He has been on HD since Sep. He is on Home hemo couldn't provide me much info due toAMS. He did his outpatient race car mechanic is Dr Cheney. Unable to tell exactly [...] disease) (CMS/HCC) Hyponatremia Discitis Epidural abscess Leukocytosis Assessment: (ESRD: [...] CONSULT TO INFECTIOUS DISEASES Leoncio Rollins 1975 [id number] Date of Consult: 04/28/2020 Date of Admission: [...] with worsening back pain fevers leukocytosisseen in [facility] emergency room with diagnosis of epidural abscess [...] Ammon Bergey, DO Or ??? acetaminophen (TYLENOL) suppository 650 mg 650 mg Rectal Q4H PRN Ammon Bergey, DO ??? calcium carbonate (TUMS) chewable tablet 500 mg (200 mg elemental) 1 tablet Oral BID PRN Ammon Bergey, DO ??? cycloSPORINE modified (NEORAL) capsule 50 mg 50 mg Oral BID Ammon Bergey, DO ??? dextrose (D50W) 25 g/ 50mL [...] dextrose IVPB 2.25 g (premix) 2.25 g [id number] Keara Berg, DO ??? sodium chloride 0.9 [...] Day. ??? vitamin D (ERGOCALCIFEROL) 1.25 MG (86215 UT) capsule capsule Take 50,000 Units by [...] Units Date/Time MRI Lumbar Spine Without Contrast [[id number]] Collected: 04/28/20 1058 Updated: 04/28/20 1242 Narrative: [...] E: 04/28/2020 CT Abdomen Pelvis Without Contrast [[id number]] Collected: 04/28/20640 Updated: 04/28/20643 Narrative: INDICATION: Post [...] AM Workstation Name: [facility] CT Chest Without Contrast [[id number]] Collected: 04/28/2034 Updated: 04/28/20635 Narrative: INDICATION: Liver [...] MD Signed: 04/28/2020 6:34 AM Workstation Name: [email or web address][facility] CT Lumbar Spine Without Contrast [[id number]] Collected: 04/28/20627 Updated: 04/28/20629 Narrative: INDICATION: Pain [...] but alternate diagnosis includes discitis. Signer Name: eHather Fried MD Signed: 04/28/2020 6:28 AM Workstation Name: [id number] [facility] XR Chest 1 View [[id number]] Collected: 04/28/20157 Updated: 04/28/20199 Narrative: CR Chest 1 Vw INDICATION: Weakness and dizziness on arrival COMPARISON: None available. FINDINGS: Single portable AP view(s) of the chest. The heart and mediastinal contours are normal. The lungs are clear. No pneumothorax or pleural effusion. Impression: No acute cardiopulmonary findings. Signer Name: Gabino Herr MD Signed: 04/28/2020 1:58 AM Workstation Name: [id number] PROBLEM LIST: Sepsis Lumbar spine discitis osteomyelitis [...] He was seen at several ERs including [facility] given Keflex with some improvement. Now admitted with fevers chills leukocytosis MRI revealing lumbar spine discitis osteomyelitis and fluid seen on MRI and epidural space of L5-S1 but no overt neurologic deficits today. Get old records from [facility] see if they did any blood [...] times. BP and HR increased during shift. exhibit specialist REVIEW MANAGER notified and new orders given. Other VSS. [...] RN Infection Prevention: cohorting utilized Taken 05/05/2020 220 by Ronald Aguilar RN Infection Prevention: cohorting [...] activity supervised Taken 05/06/2020 0000 by Ronald Aguliar RN Safety Promotion/Fall Prevention: activity supervised Taken [...] RN Infection Prevention: cohorting utilized Taken 05/05/2020 220 by Ronald Aguilar RN Infection Prevention: cohorting [...] Injury-Free Environment Recent Flowsheet Documentation Taken 05/06/2020 0400 by [...] frequent weight shift encouraged Head of Bed ([facility]): [facility] elevated Pressure Reduction Devices: pressure-redistributing mattress utilized Skin Protection: adhesive use limited Taken 05/06/2020 0200 by Ronald Aguilar RN Pressure Reduction Techniques: frequent weight shift encouraged Head of Bed ([facility]): [facility] elevated Pressure Reduction Devices: pressure-redistributing mattress utilized Skin Protection: adhesive use limited incontinence pads utilized Taken 05/06/2020 0000 by Ronald Aguilar RN Pressure Reduction Techniques: frequent weight shift encouraged Head of Bed ([facility]): [facility] elevated Pressure Reduction Devices: pressure-redistributing mattress utilized Skin Protection: adhesive use limited incontinence pads utilized Taken 05/05/2020 2200 by Ronald Aguilar RN Pressure Reduction Techniques: frequent weight shift encouraged Head of Bed ([facility]): [facility] elevated Pressure Reduction Devices: pressure-redistributing mattress utilized Skin Protection: adhesive use limited incontinence pads utilized Taken 05/05/2020 2000 by Ronald Aguilar RN Pressure Reduction Techniques: frequent weight shift encouraged Head of Bed ([facility]): [facility] elevated Pressure Reduction Devices: pressure-redistributing mattress [...] environmental surveillance performed Taken 05/05/2020 1600 by Albertnia Marie RN Infection Prevention: environmental surveillance performed [...] reviewed Taken 05/05/2020 1240 by Albertina Marie operations consultant Review/Management: medications reviewed Taken 05/05/2020 0830 by [...] in use Taken 05/05/2020 1600 by Albertina Marie RN Positioning/Transfer Devices: pillows [...] Taken 05/05/2020 0400 by Ronald Aguilar RN Medication Review/Management: medications reviewed Taken 05/05/2020 0200 by Ronald Aguilar, operations consultant Review/Management: medications reviewed Taken 05/04/2020 2356 by Ronald Aguilar RN Medication Review/Management: medications reviewed Taken 05/04/2020 220 by Ronald Aguilar, operations consultant Review/Management: medications reviewed Taken 05/04/20201999 by Ronald Aguilar, operations consultant Review/Management: medications reviewed Problem: Hemodynamic Instability (Hemodialysis) [...] Prevent Skin Injury Recent Flowsheet Documentation Taken 05/05/2020399 by Ronald Aguilar RN Body Position: supine [...] Devices: pressure-redistributing mattress utilized Taken 05/04/20201999 by Roanld Aguilar RN Body Position: supine Pressure Reduction Devices: pressure-redistributing mattress utilized Problem: Ongoing Anesthesia Effects (Spinal Surgery) Goal: Anesthesia/Sedation Recovery Outcome: Ongoing, Progressing Intervention: Optimize Anesthesia Recovery Recent Flowsheet Documentation Taken 05/05/2020 040 by [...] frequent weight shift encouraged Head of Bed ([facility]): [facility] elevated Pressure Reduction Devices: pressure-redistributing mattress utilized Skin Protection: adhesive use limited incontinence pads utilized Taken 05/05/2020 0200 by Ronald Aguilar RN Pressure Reduction Techniques: frequent weight shift encouraged Head of Bed ([facility]): [facility] elevated Pressure Reduction Devices: pressure-redistributing mattress utilized Skin Protection: adhesive use limited Taken 05/04/2020 2356 by Ronald Aguilar RN Pressure Reduction Techniques: frequent weight shift encouraged Head of Bed ([facility]): [facility] elevated Pressure Reduction Devices: pressure-redistributing mattress utilized Skin Protection: adhesive use limited Taken 05/04/2020 2200 by Ronald Aguilar RN Pressure Reduction Techniques: frequent weight shift encouraged Head of Bed ([facility]): [facility] elevated Pressure Reduction Devices: pressure-redistributing mattress utilized Skin Protection: adhesive use limited Taken 05/04/2020 2000 by Ronald Aguilar RN Pressure Reduction Techniques: frequent weight shift encouraged Head of Bed ([facility]): [facility] elevated Pressure Reduction Devices: pressure-redistributing mattress utilized Skin Protection: adhesive use limited Goal Outcome Evaluation: Plan of Care Reviewed With: patient Progress: no change * Deisy Jones RN - 05/05/2020 3:29 AM EDT Patient went to Radiology for flexion/extension x-ray. Patient was unable to stand with the assist of 3. The Copy Camera Operator said he could not get films if [...] CDI. BP and HR elevated during shift, cell tuber machine CLOTH BRUSHING AND SUEDING SUPERVISOR notified and new orders given. PRN tylenol, percocet and dilaudid given for pain. Tarry BM during shift, cell tuber machine CLOTH BRUSHING AND SUEDING SUPERVISOR notified and orders for STAT CBC/Type&screen given. [...] Garnica MD Assistants: Tim Coppola my physician's review assistant was present and personally scrubbed the [...] this chart in the absence of a ctrs. ECG 12 Lead Final Result Test Reason [...] Referred By: EDMD Confirmed By:KYM GARCIA MD RADIOLOGY: Non-plain film [...] MD Signed: 04/28/2020 6:41 AM Workstation Name: [employer] [facility] CT Chest Without Contrast Final Result [...] MD Signed: 04/28/2020 6:34 AM Workstation Name: [employer] [facility] CT Lumbar Spine Without Contrast Final [...] MD Signed: 04/28/2020 6:28 AM Workstation Name: [facility] XR Chest 1 View Final Result No acute cardiopulmonary findings. Signer Name: Gabino Herr MD Signed: 04/28/2020 1:58 AM Workstation Name: [facility] MRI Lumbar Spine With & Without [...] Procedure: ESOPHAGOGASTRODUODENOSCOPY; Surgeon: Dewey Betancourt MD; Location: [facility]; Service: Gastroenterology; Laterality: N/A; ??? LUMBAR LAMINECTOMY DISCECTOMY DECOMPRESSION N/A 04/29/2020 Procedure: LUMBAR LAMINECTOMY DISCECTOMY DECOMPRESSION POSTERIOR L4-5; Surgeon: Yinka Garnica MD; Location: [facility] OR; Service: Neurosurgery; Laterality: N/A; General Information Row Name 05/12/20 1648 05/12/20 1554 Physical Therapy Time and Intention Document Type progress note/recertification -PR therapy note (daily note) -PR Mode of Treatment -- individual therapy;physical therapy -PR Row Name 05/12/20 1611 05/12/20 1554 General Information Patient Profile Reviewed -- Talks alot with multiple reasond not to attempt activities. -PR yes -PR Existing Precautions/Restrictions -- fall;spinal;other (see comments) anxiety -PR Row Name 05/12/20 5114 Cognition Orientation Status (Cognition) oriented to;person -PR Row Name 05/12/20 1554 Safety Issues, Functional Mobility Safety Issues Affecting Function (Mobility) insight into deficits/self-awareness;judgment;problem-solving;sequencing abilities -PR Impairments Affecting Function (Mobility) balance;endurance/activity tolerance;motor control;pain;strength -PR Comment, Safety Issues/Impairments (Mobility) gets very anxious -PR User Dyer (r) = Recorded By, (t) = Taken By, (c) = Cosigned By Initials Name Provider Type PR Momo Aragon PT Physical Therapist Mobility Row Name 05/12/20 1558 Bed Mobility Bed Mobility rolling right;rolling left;supine-sit;sit-supine -SC Rolling Left [place] (Bed Mobility) verbal cues;minimum assist (75% patient effort) -PR Rolling Right [place] (Bed Mobility) verbal cues;minimum assist (75% patient effort) -PR Scooting/Bridging [place] (Bed Mobility) maximum assist (25% patient effort);2 person assist;verbal cues -SC Supine-Sit [place] (Bed Mobility) 2 person assist;maximum assist (25% patient effort);verbal cues -SC Sit-Supine [place] (Bed Mobility) maximum assist (25% patient effort);2 person assist;verbal cues -SC Assistive Device (Bed Mobility) bed rails;draw sheet;head of bed elevated -PR Comment (Bed Mobility) spent long time working on rolling to prepare for log rolling into sitting. required repeted cues for sequencing. PT assisting at trunk and at legs to lower them slowly. Patient crying in pain on sitting. -PR Row Name 05/12/20 1558 Transfers Comment (Transfers) refused- dispite frequent attempts to sit forward -PR Row Name 05/12/20 1558 Gait/Stairs (Locomotion) Comment (Gait/Stairs) refused to walk -PR User Dyer (r) = Recorded By, (t) = Taken By, (c) = Cosigned By Initials Name Provider Type PR Momo Aragon, PT Physical Therapist Obj/Interventions [facility] Name 05/12/20 1609 Balance Balance Interventions sitting -PR Comment, Balance working on midline sitting with multiple cues to wt shifting onto R hip. Patient required Bilateral upper extremity support to sit on edge of bed . Required rest break and layed backonto tech support in sitting. At this point patient refused to do more PT and was layed back into bed -PR User Dyer (r) = Recorded By, (t) = Taken By, (c) = Cosigned By Initials Name Provider Type PR Momo Aragon, PT Physical Therapist Goals/Plan No documentation. Clinical Impression [facility] Name 05/12/20 1611 Pain Additional Documentation Pain Scale: FACES Pre/Post-Treatment (Group) -[facility] Name 05/12/20 1611 Pain Scale: Numbers Pre/Post-Treatment Pain Intervention(s) Repositioned -[facility] Name 05/12/20 1611 Pain Scale: FACES Pre/Post-Treatment Pain: FACES Scale, Pretreatment 2-->hurts little bit -PR Posttreatment Pain Rating 10-->hurts worst -PR Pain Location back -PR Row Name 05/12/20 1611 Plan of Care Review Plan of Care Reviewed With patient -PR Progress no change -PR Outcome Summary Patient continues to be limited in all mobility by anxiety and c/o back pain. He isdifficult to motivate and to stay on task. He is unrealistiic about his goals stating, I'm going to walk home tomorrow. -PR Row Name 05/12/20 1611 Therapy Assessment/Plan (PT) Patient/Family Therapy Goals Statement (PT) go home -PR Rehab Potential (PT) fair, will monitor progress closely -PR Criteria for Skilled Interventions Met (PT) yes;skilled treatment is necessary -PR Row Name 05/12/20 1611 Positioning and Restraints Pre-Treatment Position in bed -PR Post Treatment Position bed -PR In Bed supine;notified nsg;call light within reach;encouraged to call for assist -PR User Dyer (r) = Recorded By, (t) = Taken By, (c) = Cosigned By Initials Name Provider Type PR Momo Aragon PT Physical Therapist Outcome Measures [...] -SC To walk in hospital room? 1 -PR AM-PAC 6 Clicks Score (PT) 10 -PR Row Name 05/12/20 1646 05/12/20 1643 Functional Assessment Outcome Measure Options AM-PAC 6 Clicks Basic Mobility (PT) -PR AM-PAC 6 Clicks Basic Mobility (PT)-PR User Dyer (r) = Recorded By, (t) = Taken By, (c) = Cosigned By Initials Name Provider Type PR Momo Aragon PT Physical Therapist Physical Therapy Education Title: PT OT STUDENT MINISTRY PASTOR Therapies (In Progress) Topic: Physical Therapy (In Progress) Point: Mobility training (In Progress) Learning Progress Summary Patient Acceptance, E, NR by PR at 05/12/2020 1643 Comment: reviewed benefits of [...] and logroll technique Acceptance, E, NR by PR at 04/30/2020 1453 Comment: reviewed benefits of activity Family Acceptance, E,D, VU by MINE at 05/06/2020 1510 Comment: Educated on safe sequencing with bed mobility, ambulatory transfers, and gait. Reviewed HEP and spinal precautions. Point: Home exercise program (In Progress) Learning Progress Summary Patient Acceptance, E, NR by PR at 05/12/2020 1643 Comment: reviewed benefits of [...] and logroll technique Acceptance, E, NR by PR at 04/30/2020 1453 Comment: reviewed benefits of activity Family Acceptance, E,D, VU by MINE at 05/06/2020 1510 Comment: Educated on safe sequencing with bed mobility, ambulatory transfers, and gait. Reviewed HEP and spinal precautions. Point: Body mechanics (In Progress) Learning Progress Summary Patient Acceptance, E, NR by PR at 05/12/2020 1643 Comment: reviewed benefits of [...] and logroll technique Acceptance, E, NR by PR at 04/30/2020 1453 Comment: reviewed benefits of activity Family Acceptance, E,D, VU by at 05/06/2020 1510 Comment: Educated on safe sequencing with bed mobility, ambulatory transfers, and gait. Reviewed HEP and spinal precautions. Point: Precautions (In Progress) Learning Progress Summary Patient Acceptance, E, NR by PR at 05/12/2020 1643 Comment: reviewed benefits of [...] and logroll technique Acceptance, E, NR by PR at 04/30/2020 1453 Comment: reviewed benefits of activity Family Acceptance, E,D, VU by at 05/06/2020 1510 Comment: Educated on safe sequencing with bed mobility, ambulatory transfers, and gait. Reviewed HEP and spinal precautions. User Dyer Initials Effective Dates Name Provider Type Discipline PR 01/30/15 - Mahesh, Shearon A, PT Physical [...] 1310 Time Calculation Start Time -- 1310 -PR PT Received On -- 05/12/20 -PR PT Goal Re-Cert Due Date -- 05/22/20 -PR Time Calculation- PT Total Timed Code Minutes- PT 40 minute(s) -SC -- Timed Charges 22340 - PT Therapeutic Activity Minutes 40 -SC -- User Dyer (r) = Recorded By, (t) = Taken By, (c) = Cosigned By Initials Name Provider Type PR Momo Aragon, PT Physical Therapist Therapy Charges for Today Code Description Service Date Service Provider Modifiers Qty [id number] PT THERAPEUTIC ACT EA 15 MIN 05/12/2020 [...] Procedure: ESOPHAGOGASTRODUODENOSCOPY; Surgeon: Dewey Betancourt MD; Location: [facility]; Service: Gastroenterology; Laterality: N/A; ??? LUMBAR LAMINECTOMY DISCECTOMY DECOMPRESSION N/A 04/29/2020 Procedure: LUMBAR LAMINECTOMY DISCECTOMY DECOMPRESSION POSTERIOR L4-5; Surgeon: Yinka Garnica MD; Location: [facility] OR; Service: Neurosurgery; Laterality: N/A; General [...] - Row Name 05/08/20910 Bed-Chair Transfer Bed-Chair [place] (Transfers) verbal cues;nonverbal cues (demo/gesture);2 person assist;moderate assist (50% patient effort) - Row Name 05/08/20910 Sit-Stand Transfer Sit-Stand [place] (Transfers) verbal cues;nonverbal cues (demo/gesture);moderate assist (50% patient effort);2 person assist - Assistive Device (Sit-Stand Transfers) walker, front-wheeled - Row Name 05/08/20910 Gait/Stairs (Locomotion) [place] Level (Gait) verbal cues;nonverbal cues (demo/gesture);2 person [...] Provider Type Eneida Oro, PT Physical Therapist Goals/Plan Row Name 05/08/20910 Bed Mobility Goal 1 (PT) Activity/Assistive Device (Bed Mobility Goal 1, PT) scooting;sit to supine - [place] Level/Cues Needed (Bed Mobility Goal 1, PT) modified independence - Time Frame (Bed Mobility Goal 1, PT) assisted goal (LTG);10 days - Row Name 05/08/20910 Transfer Goal 1 (PT) Activity/Assistive Device (Transfer Goal 1, PT) nmg-ry-ruqsh/ridul-cz-qye;sad-ip-bskyw/woree-nz-stc;walker, rolling - [place] Level/Cues Needed (Transfer Goal 1, PT) minimum assist (75% or more patient effort) - Time Frame (Transfer Goal 1, PT) assisted goal (LTG);10 days - Row Name 05/08/20910 Gait Training Goal 1 (PT) Activity/Assistive Device (Gait Training Goal 1, PT) gait (walking locomotion);walker, rolling - [place] Level (Gait Training Goal 1, PT) minimum assist (75% or more patient effort) - Distance (Gait Training Goal 1, PT) 150 - Time Frame (Gait Training Goal 1, PT) assistant terminal manager goal (LTG);10 days - Row Name 05/08/20910 Patient Education Goal (PT) Activity (Patient Education Goal, PT) back precautions - [place]/Cues/Accuracy (Memory Goal 2, PT) demonstrates adequately;verbalizes understanding - Time Frame (Patient Education Goal, PT) assisted goal (LTG);10 days - User Dyer (r) [...] reach;encouraged to call for assist;exit alarm on;notified [facility] User Dyer (r) = Recorded By, (t) = Taken By, (c) = Cosigned By Initials Name Provider Type Eneida Oro PT Physical Therapist Outcome Measures Row Name [...] Provider Type Eneida Martel PT Physical Therapist Physical Therapy Education Title: PT OT STUDENT MINISTRY PASTOR Therapies (In Progress) Topic: Physical Therapy (In [...] and logroll technique Acceptance, E, NR by PR at 04/30/2020 1453 Comment: reviewed benefits of [...] and logroll technique Acceptance, E, NR by PR at 04/30/2020 1453 Comment: reviewed benefits of [...] and logroll technique Acceptance, E, NR by PR at 04/30/2020 1453 Comment: reviewed benefits of [...] and logroll technique Acceptance, E, NR by PR at 04/30/2020 1453 Comment: reviewed benefits of activity Family Acceptance, E,D, VU by at 05/06/2020 1510 Comment: Educated on safe sequencing with bed mobility, ambulatory transfers, and gait. Reviewed HEP and spinal precautions. User Dyer Initials Effective Dates Name Provider Type Discipline PR 01/30/15 - Momo Aragon, PT Physical Therapist PT 01/30/15 - Eneida Oro, PT Physical Therapist PT MINE 04/23/19 - Elieser Hawkins, PT Physical Therapist [...] Minutes- PT 14 minute(s) - Timed Charges 96464 - Gait Training Minutes 6 - 73487 - PT Therapeutic Activity Minutes 8 - User Dyer (r) = Recorded By, (t) = Taken By, (c) = Cosigned By Initials Name Provider Type Eneida Oro, PT Physical Therapist Therapy Charges for Today Code Description Service Date Service Provider Modifiers Qty [id number] PT THERAPEUTIC ACT EA 15 MIN 05/08/2020 [...] Procedure: ESOPHAGOGASTRODUODENOSCOPY; Surgeon: Dewey Betancourt MD; Location: [facility]; Service: Gastroenterology; Laterality: N/A; ??? LUMBAR LAMINECTOMY DISCECTOMY DECOMPRESSION N/A 04/29/2020 Procedure: LUMBAR LAMINECTOMY DISCECTOMY DECOMPRESSION POSTERIOR L4-5; Surgeon: Yinka Garnica MD; Location: [facility] OR; Service: Neurosurgery; Laterality: N/A; General [...] education - Row Name 05/07/20924 Gait/Stairs (Locomotion) [place] Level (Gait) unable to assess - Comment (Gait/Stairs) Pt refusing OOB activity due to pain, despite max encouragement and education- User Dyer (r) = Recorded By, (t) = Taken By, (c) = Cosigned By Initials Name Provider Type Elieser Rojas, DEMETRIUS Physical Therapist Obj/Interventions Row Name 05/07/20924 Motor Skills Therapeutic Exercise hip;knee;ankle ab sets, BKFO, shoulder flexion -[facility] Name 05/07/20924 Hip (Therapeutic Exercise) Hip (Therapeutic Exercise) AROM (active range of motion);isometric exercises - Hip AROM (Therapeutic Exercise) bilateral;external rotation;internal rotation - Hip Isometrics (Therapeutic Exercise) gluteal sets;10 repetitions -[facility] Name 05/07/20924 Knee (Therapeutic Exercise) Knee (Therapeutic Exercise) isometric exercises - Knee AROM (Therapeutic Exercise) bilateral;heel slides;10 repetitions - Knee Isometrics (Therapeutic Exercise) bilateral;quad sets;10 repetitions -[facility] Name 05/07/20924 Ankle (Therapeutic Exercise) Ankle AROM (Therapeutic Exercise) bilateral;dorsiflexion;plantarflexion;10 repetitions - User Dyer (r) = Recorded By, (t) = Taken By, (c) = Cosigned By Initials Name Provider Type Elieser Rojas, PT Physical Therapist Goals/Plan No documentation. Clinical Impression Row Name 05/07/20924 Pain Additional Documentation Pain Scale: Numbers Pre/Post-Treatment (Group) -[facility] 05/07/20924 Pain Scale: Numbers Pre/Post-Treatment Pretreatment [...] Therapist Physical Therapy Education Title: PT OT STUDENT MINISTRY PASTOR Therapies (In Progress) Topic: Physical Therapy (In [...] and logroll technique Acceptance, E, NR by PR at 04/30/2020 1453 Comment: reviewed benefits of [...] and logroll technique Acceptance, E, NR by PR at 04/30/2020 1453 Comment: reviewed benefits of [...] function. Reviewed HEP. Acceptance, E,D, VU by MIEN at 05/06/2020 1510 Comment: Educated on safe [...] and logroll technique Acceptance, E, NR by PR at 04/30/2020 1453 Comment: reviewed benefits of [...] and logroll technique Acceptance, E, NR by PR at 04/30/2020 1453 Comment: reviewed benefits of activity Family Acceptance, E,D, VU by at 05/06/2020 1510 Comment: Educated on safe sequencing with bed mobility, ambulatory transfers, and gait. Reviewed HEP and spinal precautions. User Dyer Initials Effective Dates Name Provider Type Discipline PR 01/30/15 - Momo Aragon, PT Physical Therapist [...] Minutes- PT 10 minute(s) - Timed Charges 75694 - PT Therapeutic Exercise Minutes 10 -MINE User Dyer (r) = Recorded By, (t) = Taken By, (c) = Cosigned By Initials Name Provider Type Elieser Rojas, PT Physical Therapist Therapy Charges for Today Code Description Service Date Service Provider Modifiers Qty [id number] HC PT THER PROC EA 15 MIN 05/06/2020 Elieser Hawkins, PT GP 1 14394554802 HC PT THERAPEUTIC ACT EA 15 MIN 05/06/2020 Elieser Hawkins, PT GP 1 [id number] PT THER SUPP EA 15 MIN 05/06/2020 Elieser Hawkins, PT GP 2 65050311069 HC PT THER PROC EA 15 MIN [...] Procedure: ESOPHAGOGASTRODUODENOSCOPY; Surgeon: Dewey Betancourt MD; Location: [facility]; Service: Gastroenterology; Laterality: N/A; ??? LUMBAR LAMINECTOMY DISCECTOMY DECOMPRESSION N/A 04/29/2020 Procedure: LUMBAR LAMINECTOMY DISCECTOMY DECOMPRESSION POSTERIOR L4-5; Surgeon: Yinka Garnica MD; Location: [facility] OR; Service: Neurosurgery; Laterality: N/A; General [...] Mobility rolling right;rolling left;sidelying-sit;sit-sidelying -MINE Rolling Left [place] (Bed Mobility) verbal cues;moderate assist (50% patient effort);2 person assist -MINE Rolling Right [place] (Bed Mobility) verbal cues;moderate assist (50% patient effort);2 personassist -MINE Sidelying-Sit [place] (Bed Mobility) verbal cues;maximum assist (25% patient effort);2 person assist -MINE Sit-Sidelying [place] (Bed Mobility) verbal cues;moderate assist (50% patient [...] - Row Name 05/06/201509 Sit-Stand Transfer Sit-Stand [place] (Transfers) verbal cues;moderate assist (50% patient effort);2 person assist-MINE Assistive Device (Sit-Stand Transfers) walker, front-wheeled -MINE Row Name 05/06/201509 Gait/Stairs (Locomotion) [place] Level (Gait) verbal cues;moderate assist (50% patient effort);2 person assist -MINE Assistive Device (Gait) walker, front-wheeled - Distance in Feet (Gait) 2 feet -MINE Deviations/Abnormal Patterns (Gait) bilateral deviations;anand decreased;gait speed decreased;antalgic;stride length decreased;base of support, narrow;festinating/shuffling - Bilateral Gait Deviations forward flexed posture;weight shift ability decreased;heel strike decreased - [place] Level (Stairs) not tested - Comment (Gait/Stairs) [...] Hip Isometrics (Therapeutic Exercise) gluteal sets;10 repetitions -[facility] Name 05/06/201509 Knee (Therapeutic Exercise) Knee (Therapeutic Exercise) isometric exercises;strengthening exercise - Knee Isometrics (Therapeutic Exercise) bilateral;quad sets - Knee Strengthening (Therapeutic Exercise) bilateral;flexion;heel slides;10 repetitions -[facility] 05/06/201509 Ankle (Therapeutic Exercise) Ankle (Therapeutic Exercise) AROM (active range of motion) - Ankle AROM (Therapeutic Exercise) bilateral;dorsiflexion;10 repetitions;plantarflexion - User Dyer (r) = Recorded By, (t) = Taken By, (c) = Cosigned By Initials Name Provider Type Elieser Rojas, PT Physical Therapist Goals/Plan No documentation. Clinical Impression [facility] Name 05/06/201509 Pain Additional Documentation Pain Scale: Numbers Pre/Post-Treatment (Group) -[facility] 05/06/201509 Pain Scale: Numbers Pre/Post-Treatment Pretreatment Pain Rating 10/10 - Posttreatment Pain Rating 10/10 - Pain Location - Side Bilateral -MINE Pain Location - Orientation lower -MINE Pain Location back - Pain Intervention(s) Repositioned;Cold applied;Ambulation/increased activity -[facility] Name 05/06/201509 Therapy Assessment/Plan (PT) Rehab Potential (PT) fair, will monitor progress closely - Criteria for Skilled Interventions Met (PT) yes;skilled treatment is necessary -[facility] Name 05/06/201509 Positioning and Restraints Pre-Treatment Position [...] Clicks Score (PT) 8 - Row Name 05/06/20 1510 Functional Assessment Outcome Measure Options AM-PAC 6 Clicks Basic Mobility (PT) -MINE User Dyer (r) = Recorded By, (t) = Taken By, (c) = Cosigned By Initials Name Provider Type Elieser Rojas, PT Physical Therapist Physical Therapy Education Title: PT OT STUDENT MINISTRY PASTOR Therapies (Done) Topic: Physical Therapy (Done) Point: [...] and logroll technique Acceptance, E, NR by PR at 04/30/2020 1453 Comment: reviewed benefits of [...] and logroll technique Acceptance, E, NR by PR at 04/30/2020 1453 Comment: reviewed benefits of [...] and logroll technique Acceptance, E, NR by PR at 04/30/2020 1453 Comment: reviewed benefits of [...] and logroll technique Acceptance, E, NR by PR at 04/30/2020 1453 Comment: reviewed benefits of activity Family Acceptance, E,D, VU by at 05/06/2020 1510 Comment: Educated on safe sequencing with bed mobility, ambulatory transfers, and gait. Reviewed HEP and spinal precautions. User Dyer Initials Effective Dates Name Provider Type Discipline PR 01/30/15 - Momo Aragon, PT Physical Therapist [...] 05/06/20 1510 Time Calculation Start Time 1510 - PT Received On 05/06/20 - PT Goal Re-Cert Due Date 05/11/20 - Time Calculation- PT Total Timed Code Minutes- PT 23 minute(s) - Timed Charges 37905 - PT Therapeutic Exercise Minutes 10 -MINE 14583 - Gait Training Minutes 2 - 74634 - PT Therapeutic Activity Minutes 11 -MINE User Dyer (r) = Recorded By, (t) = Taken By, (c) = Cosigned By Initials Name Provider Type MINE Elieser Hawkins, PT Physical Therapist Therapy Charges for Today Code Description Service Date Service Provider Modifiers Qty 06059312085 HC PT THER PROC EA 15 MIN 05/06/2020 Elieser Hawkins, PT GP 1 36115354079 HC PT THERAPEUTIC ACT EA 15 MIN [...] POSTERIOR L4-5; Surgeon: Yinka Garnica MD; Location: [facility]; Service: Neurosurgery; Laterality: N/A; General Information [...] back pain -MINE Row Name 05/03/20 1300 Transfers Comment (Transfers) Pt refusing mobility due to 10/10 back pain -MINE Row Name 05/03/20 1300 Gait/Stairs (Locomotion) Comment (Gait/Stairs) Pt refusing mobility due to 10/10 back pain - User Dyer (r) = Recorded By, (t) = Taken By, (c) = Cosigned By Initials Name Provider Type Elieser Rojas, DEMETRIUS Physical Therapist Obj/Interventions [facility] Name 05/03/20 1300 Motor Skills Therapeutic Exercise hip;knee;ankle ab sets -[facility] 05/03/20 1300 Hip (Therapeutic Exercise) Hip (Therapeutic [...] Physical Therapist Goals/Plan No documentation. Clinical Impression [facility] 05/03/20 1300 Pain Additional Documentation Pain Scale: Numbers Pre/Post-Treatment (Group) -[facility] 05/03/20 1300 Pain Scale: Numbers Pre/Post-Treatment Pretreatment Pain Rating 10/10 -MINE Posttreatment Pain Rating 10/10 -MINE Pain Location - Side Bilateral -MINE Pain Location - Orientation lower -MINE Pain Location back - Pre/Posttreatment Pain Comment Pt agreeable to bed level exercise - Pain Intervention(s) Repositioned - Row Name 05/03/20 1300 Therapy Assessment/Plan (PT) Rehab Potential (PT) fair, will monitor progress closely - Criteria for Skilled Interventions Met (PT) yes;skilled treatment is necessary -[facility] Name 05/03/20 1300 Positioning and Restraints Pre-Treatment [...] Therapist Physical Therapy Education Title: PT OT STUDENT MINISTRY PASTOR Therapies (In Progress) Topic: Physical Therapy (In [...] and logroll technique Acceptance, E, NR by PR at 04/30/2020 1453 Comment: reviewed benefits of [...] and logroll technique Acceptance, E, NR by PR at 04/30/2020 1453 Comment: reviewed benefits of [...] and logroll technique Acceptance, E, NR by PR at 04/30/2020 1453 Comment: reviewed benefits of [...] and logroll technique Acceptance, E, NR by PR at 04/30/2020 1453 Comment: reviewed benefits of activity User Dyer Initials Effective Dates Name Provider Type Discipline PR 01/30/15 - Momo Aragon, PT Physical Therapist [...] Minutes- PT 10 minute(s) - Timed Charges 47873 - PT Therapeutic Exercise Minutes 10 -MINE User Dyer (r) = Recorded By, (t) = Taken By, (c) = Cosigned By Initials Name Provider Type Elieser Hawkins, PT Physical Therapist Therapy Charges for Today Code Description Service Date Service Provider Modifiers Qty 02104836276 HC PT THER PROC EA 15 MIN 05/02/2020 Elieser Hawkins, PT GP 1 83847568405 HC PT THERAPEUTIC ACT EA 15 MIN 05/02/2020 Elieser Hawkins, PT GP 1 [id number] HC PT THER PROC EA 15 MIN [...] POSTERIOR L4-5; Surgeon: Yinka Garnica MD; Location: [facility]; Service: Neurosurgery; Laterality: N/A; General Information [...] Provider Type Elieser Hawkins, PT Physical Therapist Mobility Row Name 05/02/20 1028 Bed Mobility Bed Mobility rolling left;sidelying-sit;scooting/bridging - Rolling Left [place] (Bed Mobility) verbal cues;moderate assist (50% patient effort) - Scooting/Bridging [place] (Bed Mobility) verbal cues;moderate assist (50% patient effort) - Sidelying-Sit [place] (Bed Mobility) verbal cues;maximum assist (25% patient [...] Row Name 05/02/20 1028 Bed-Chair Transfer Bed-Chair [place] (Transfers) verbal cues;moderate assist (50% patient effort);2 person assist- Assistive Device (Bed-Chair Transfers) walker, front-wheeled - Row Name 05/02/20 1028 Sit-Stand Transfer Sit-Stand [place] (Transfers) verbal cues;moderate assist (50% patient effort);2 person assist- Assistive Device (Sit-Stand Transfers) walker, front-wheeled - Row Name 05/02/20 1028 Gait/Stairs (Locomotion) [place] Level (Gait) unable to assess - Comment (Gait/Stairs) Pt unable to safely take steps for gait training due to his pain - User Dyer (r) = Recorded By, (t) = Taken By, (c) = Cosigned By Initials Name Provider Type Elieser Rojas, DEMETRIUS Physical Therapist Obj/Interventions [facility] Name 05/02/20 1028 Motor Skills Therapeutic Exercise hip;knee;ankle ab sets -[facility] 05/02/20 1028 Hip (Therapeutic Exercise) Hip (Therapeutic Exercise) isometric exercises - Hip Isometrics (Therapeutic Exercise) bilateral;external rotation;internal rotation;gluteal sets;10repetitions -[facility] Name 05/02/20 1028 Knee (Therapeutic Exercise) Knee (Therapeutic Exercise) AROM (active range of motion);isometric exercises - Knee AROM (Therapeutic Exercise) heel slides;10 repetitions;bilateral - Knee Isometrics (Therapeutic Exercise) quad sets;10 repetitions -[facility] 05/02/20 1028 Ankle (Therapeutic Exercise) Ankle (Therapeutic Exercise) AROM (active range of motion) - Ankle Isometrics (Therapeutic Exercise) bilateral;dorsiflexion;plantarflexion;10 repetitions - User Dyer (r) = Recorded By, (t) = Taken By, (c) = Cosigned By Initials Name Provider Type Elieser Rojas, DEMETRIUS Physical Therapist Goals/Plan No documentation. Clinical Impression [facility] Name 05/02/20 1028 Pain Additional Documentation Pain Scale: Numbers Pre/Post-Treatment (Group) -[facility] 05/02/20 1028 Pain Scale: Numbers Pre/Post-Treatment Pretreatment Pain Rating 8/10 - Posttreatment Pain Rating 10/10 - Pain Location - Side Bilateral - Pain Location - Orientation lower - Pain Location back - Pre/Posttreatment Pain Comment RN present and aware - Pain Intervention(s) Repositioned;Ambulation/increased activity -[facility] Name 05/02/20 1028 Therapy Assessment/Plan (PT) Rehab Potential (PT) good, to achieve stated therapy goals - Criteria for Skilled Interventions Met (PT) yes;skilled treatment is necessary -[facility] Name 05/02/20 1028 Positioning and Restraints Pre-Treatment Position in bed - Post Treatment Position chair - In Chair notified nsg;reclined;call light within reach;encouraged to call for assist;exit alarm on;with family/caregiver;on mechanical lift sling;legs elevated;waffle cushion - User Dyer (r) = Recorded By, (t) = Taken By, (c) = Cosigned By Initials Name Provider Type Elieser Rojas, DEMETRIUS Physical Therapist Outcome Measures Row Name 05/02/20 [...] Provider Type Elieser Rojas, DEMETRIUS Physical Therapist Physical Therapy Education Title: PT OT STUDENT MINISTRY PASTOR Therapies (Done) Topic: Physical Therapy (Done) Point: Mobility training (Done) Learning Progress Summary Patient Acceptance, E,D, VU by at 05/02/2020 1028 Comment: Educated on safe sequencing with bed mobility and ambulatory transfers. Reviewed HEP, spinal precautions, and logroll technique Acceptance, E, NR by PR at 04/30/2020 1453 Comment: reviewed benefits of activity Point: Home exercise program (Done) Learning Progress Summary Patient Acceptance, E,D, VU by at 05/02/2020 1028 Comment: Educated on safe sequencing with bed mobility and ambulatory transfers. Reviewed HEP, spinal precautions, and logroll technique Acceptance, E, NR by PR at 04/30/2020 1453 Comment: reviewed benefits of activity Point: Body mechanics (Done) Learning Progress Summary Patient Acceptance, E,D, VU by at 05/02/2020 1028 Comment: Educated on safe sequencing with bed mobility and ambulatory transfers. Reviewed HEP, spinal precautions, and logroll technique Acceptance, E, NR by PR at 04/30/2020 1453 Comment: reviewed benefits of activity Point: Precautions (Done) Learning Progress Summary Patient Acceptance, E,D, VU by at 05/02/2020 1028 Comment: Educated on safe sequencing with bed mobility and ambulatory transfers. Reviewed HEP, spinal precautions, and logroll technique Acceptance, E, NR by PR at 04/30/2020 1453 Comment: reviewed benefits of activity User Dyer Initials Effective Dates Name Provider Type Discipline PR 01/30/15 - Momo Aragon PT Physical Therapist [...] Minutes- PT 23 minute(s) - Timed Charges 65622 - PT Therapeutic Exercise Minutes 10 - 35748 - PT Therapeutic Activity Minutes 13 -MINE User Dyer (r) = Recorded By, (t) = Taken By, (c) = Cosigned By Initials Name Provider Type Elieser Hawkins, PT Physical Therapist Therapy Charges for Today Code Description Service Date Service Provider Modifiers Qty 90234745877 HC PT THER PROC EA 15 MIN 05/02/2020 Elieser Hawkins, PT GP 1 51313187955 HC PT THERAPEUTIC ACT EA 15 MIN 05/02/2020 Elieser Hawkins, PT GP 1 PT G-Codes Outcome Measure Options: AM-PAC 6 Clicks Basic Mobility (PT) AM-PAC 6 Clicks Score (PT): 8 Elieser Hawkins PT 05/02/2020 * Therapy Evaluation - Momo Aragon PT - 04/30/2020 10:35 AM [...] POSTERIOR L4-5; Surgeon: Yinka Garnica MD; Location: [facility]; Service: Neurosurgery; Laterality: N/A; General Information Row Name 04/30/20 1436 Physical Therapy Time and Intention Document Type evaluation -SC Mode of Treatment physical therapy -SC Row Name 04/30/20 1436 General Information Patient Profile Reviewed yes -PR Existing Precautions/Restrictions fall;spinal -SC Row Name 04/30/20 1436 Living Environment Lives With spouse;other (see comments) unknown -PR Row Name 04/30/20 1436 Cognition Orientation Status (Cognition) oriented x 3 -SC Row Name 04/30/20 1436 Safety Issues, Functional Mobility Safety Issues Affecting Function (Mobility) judgment;problem- solving;impulsivity;sequencing abilities;insight into deficits/self-awareness -PR Impairments Affecting Function (Mobility) balance;motor control;postural/trunk control;pain;strength;endurance/activity tolerance -PR Comment, Safety Issues/Impairments (Mobility) very anxious -PR User Dyer (r) = Recorded By, (t) = Taken By, (c) = Cosigned By Initials Name Provider Type PR Momo Aragon PT Physical Therapist Mobility Row Name 04/30/20 1438 Bed Mobility Bed Mobility scooting/bridging;supine-sit;sit-supine;rolling right;rolling left -PR Rolling Left [place] (Bed Mobility) verbal cues;dependent (less than 25% patient effort) -PR Rolling Right [place] (Bed Mobility) verbal cues;moderate assist (50% patient effort) -PR Scooting/Bridging [place] (Bed Mobility) verbal cues;moderate assist (50% patient effort) -PR Supine-Sit [place] (Bed Mobility) verbal cues;2 person assist;maximum assist (25% patient effort) -PR Sit-Supine [place] (Bed Mobility) 2 person assist;maximum assist (25% patient effort) -PR Assistive Device (Bed Mobility) bed rails;draw sheet;head of bed elevated -PR Comment (Bed Mobility) up to edge of bed for assessment. Required repeted cues for rolling and sequencing . Patient required help with trunk and legs. On sitting he demonstrated increased anxiety andcrying begging to bed layed down. Was able to calm down for a few minutes they layed back in to bed-[facility] Name 04/30/20 1438 Transfers Comment (Transfers) refused standing or out of bed -[facility] Name 04/30/20 1438 Gait/Stairs (Locomotion) Comment (Gait/Stairs) not assessed -PR User Dyer (r) = Recorded By, (t) = Taken By, (c) = Cosigned By Initials Name Provider Type PR Momo Aragon PT Physical Therapist Obj/Interventions Row Name 04/30/20 1441 Range of Motion Comprehensive General Range of Motion bilateral upper extremity ROM WNL;bilateral lower extremity ROM WNL -PR Comment, General Range of Motion joints wfl -PR Row Name 04/30/20 1441 Strength Comprehensive (MMT) General Manual Muscle Testing (MMT) Assessment lower extremity strength deficits identified -PR Comment, General Manual Muscle Testing (MMT) Assessment B UE: grossly 4+/5 R LE: quads 3+/5, tib ant 4/5, hip flexion 3/5 . L LE: quads 3/5, tib ant 3+/5 hip flex 3/5 -[facility] Name 04/30/20 144 Motor Skills Therapeutic Exercise ankle;knee;hip -[facility] 04/30/20 144 Hip (Therapeutic Exercise) Hip (Therapeutic Exercise) isometric exercises -PR Hip Isometrics (Therapeutic Exercise) 10 repetitions;gluteal sets -[facility] Name 04/30/20 144 Knee (Therapeutic Exercise) Knee (Therapeutic Exercise) isometric exercises -PR Knee Isometrics (Therapeutic Exercise) quad sets -[facility] Name 04/30/20 144 Ankle (Therapeutic Exercise) Ankle (Therapeutic Exercise) isometric exercises -PR Ankle Isometrics (Therapeutic Exercise) bilateral;dorsiflexion;plantarflexion -[facility] Name 04/30/20 144 Balance Balance Assessment sitting static balance -PR Static Sitting Balance mild impairment leans on left side more. -PR Balance Interventions sitting -PR Comment, Balance working on midline sitting with cues to put equal wt in sitting -[facility] Name 04/30/20 144 Sensory Assessment (Somatosensory) Sensory Assessment (Somatosensory) LE sensation intact -[facility] 04/30/20 144 Lower Extremity (Manual Muscle Testing) Lower Extremity: Manual Muscle Testing (MMT) left knee strength deficit;right knee strength deficit;right hip strength deficit;left hip strength deficit -PR User Dyer (r) = Recorded By, (t) = Taken By, (c) = Cosigned By Initials Name Provider Type PR Momo Aragon A, PT Physical Therapist Goals/Plan [facility] 04/30/201448 Bed Mobility Goal 1 (PT) Activity/Assistive Device (Bed Mobility Goal 1, PT) scooting;sit to supine -PR [place] Level/Cues Needed (Bed Mobility Goal 1, PT) modified independence -PR Time Frame (Bed Mobility Goal 1, PT) assistant terminal manager goal (LTG);10 days -[facility] Name 04/30/201448 Transfer Goal 1 (PT) Activity/Assistive Device (Transfer Goal 1, PT) umi-ca-lkxib/wdaag-uq-yjl;pol-fx-bkelz/wduov-bf-qtd;walker, rolling -PR [place] Level/Cues Needed (Transfer Goal 1, PT) minimum assist (75% or more patient effort) -PR Time Frame (Transfer Goal 1, PT) assistant terminal manager goal (LTG);10 days -[facility] Name 04/30/20 1449 Gait Training Goal 1 (PT) Activity/Assistive Device (Gait Training Goal 1, PT) gait (walking locomotion);walker, rolling -PR [place] Level (Gait Training Goal 1, PT) minimum assist (75% or more patient effort) -PR Distance (Gait Training Goal 1, PT) 150 -PR Time Frame (Gait Training Goal 1, PT) assisted goal (LTG);10 days -[facility] Name 04/30/20 1449 Patient Education Goal (PT) Activity (Patient Education Goal, PT) back precautions -PR [place]/Cues/Accuracy (Memory Goal 2, PT) demonstrates adequately;verbalizes understanding -PR Time Frame (Patient Education Goal, PT) assisted goal (LTG);10 days -PR User Dyer (r) = Recorded By, (t) = Taken By, (c) = Cosigned By Initials Name Provider Type SC Momo Aragon, PT Physical Therapist Clinical Impression [facility] 04/30/20 1035 Plan of Care Review Progress no change -PR Outcome Summary Patient presents with high anxiety about mobilizing. He requires max assist for bedmobility . HE was unable to tolerate sitting for very long and refused to stand or attempt walking.Overall his legs are weak, however he is mostly limited by pain and anxiety.Recommend Acute rehab at discharge -[facility] 04/30/20 1035 Therapy Assessment/Plan (PT) Patient/Family Therapy Goals Statement (PT) decrease pain -PR Rehab Potential (PT) good, to achieve stated therapy goals -PR Criteria for Skilled Interventions Met (PT) yes;skilled treatment is necessary -[facility] 04/30/20 1035 Vital Signs Intratreatment Heart Rate (beats/min) 135 -PR Posttreatment Heart Rate (beats/min) 100 -[facility] 04/30/20 1035 Positioning and Restraints Pre-Treatment Position in bed -PR Post Treatment Position bed -PR In Bed notified nsg;supine;call light within reach;encouraged to call for assist -PR User Dyer (r) = Recorded By, (t) = Taken By, (c) = Cosigned By Initials Name Provider Type SC Momo Aragon, PT Physical Therapist Outcome Measures [facility] 04/30/20 1452 How much help from another [...] -SC To walk in hospital room? 1 -PR AM-[facility] 6 Clicks Score (PT) 8 -PR Row Name 04/30/20 1452 Functional Assessment Outcome Measure Options AM-PAC 6 Clicks Basic Mobility (PT) -PR User Dyer (r) = Recorded By, (t) = Taken By, (c) = Cosigned By Initials Name Provider Type PR Momo Aragon PT Physical Therapist Physical Therapy Education Title: PT OT STUDENT MINISTRY PASTOR Therapies (In Progress) Topic: Physical Therapy (In Progress) Point: Mobility training (In Progress) Learning Progress Summary Patient Acceptance, E, NR by PR at 04/30/2020 1453 Comment: reviewed benefits of activity Point: Home exercise program (In Progress) Learning Progress Summary Patient Acceptance, E, NR by PR at 04/30/2020 1453 Comment: reviewed benefits of activity Point: Body mechanics (In Progress) Learning Progress Summary Patient Acceptance, E, NR by PR at 04/30/2020 1453 Comment: reviewed benefits of activity Point: Precautions (In Progress) Learning Progress Summary Patient Acceptance, E, NR by PR at 04/30/2020 1453 Comment: reviewed benefits of activity User Dyer Initials Effective Dates Name Provider Type Discipline PR 01/30/15 - Momo Aragon PT Physical Therapist [...] 04/30/20 1035 Time Calculation Start Time 1035 -PR PT Received On 04/30/20 -PR PT Goal Re-Cert Due Date 05/11/20 -PR User Dyer (r) = Recorded By, (t) = Taken By, (c) = Cosigned By Initials Name Provider Type PR Momo Aragon PT Physical Therapist Therapy Charges for Today Code Description Service Date Service Provider Modifiers Qty 76853998928 HC PT EVAL MOD COMPLEXITY 4 04/30/2020 Momo Aragon, PT GP 1 [id number] HC PT THER SUPP EA 15 MIN [...] Associated Diagnosis Comments POCT GLUCOSE FINGERSTICK Routine 05/13/2020 11:28 AM EDT POCT GLUCOSE FINGERSTICK Routine 05/13/2020 8:50 AM EDT C-REACTIVE PROTEIN Routine 05/13/2020 8: 31 AM EDT POCT GLUCOSE FINGERSTICK Routine 05/13/2020 7:30 AM EDT POCT GLUCOSE FINGERSTICK Routine 05/12/2020 8:17 PM EDT POCT GLUCOSE FINGERSTICK Routine 05/12/2020 4:16 PM EDT HEMODIALYSIS INPATIENT Routine 0 4:07 PM EDT POCT GLUCOSE FINGERSTICK Routine 05/12/2020 11:15 AM EDT POCT GLUCOSE FINGERSTICK Routine 05/12/2020 8:06 AM EDT POCT GLUCOSE FINGERSTICK Routine 05/11/2020 8:19 PM EDT POCT GLUCOSE FINGERSTICK Routine 05/11/2020 4:49 PM EDT POCT GLUCOSE FINGERSTICK Routine 05/11/2020 7:28 AM EDT CBC WITH AUTO DIFFERENTIAL Routine 05/11/2020 7:00 AM EDT CBC AND DIFFERENTIAL Routine 05/11/2020 7:00 AM EDT C-REACTIVE PROTEIN Routine 05/11/2020 7: 00 AM EDT VANCOMYCIN, RANDOM Routine 05/11/2020 7: 00 AM EDT COMPREHENSIVE METABOLIC PANEL Routine 05/11/2020 7:00 AM EDT POCT GLUCOSE FINGERSTICK Routine 05/10/2020 9:00 PM EDT POCT GLUCOSE FINGERSTICK Routine 05/10/2020 4:11 PM EDT POCT GLUCOSE FINGERSTICK Routine 05/10/2020 11:30 AM EDT HEMODIALYSIS INPATIENT Routine 0 9:07 AM EDT POCT GLUCOSE FINGERSTICK Routine 05/10/2020 7:32 AM EDT POCT GLUCOSE FINGERSTICK Routine 05/09/2020 8:15 PM EDT POCT GLUCOSE FINGERSTICK Routine 05/09/2020 4:01 PM EDT POCT GLUCOSE FINGERSTICK Routine 05/09/2020 11:54 AM EDT POCT GLUCOSE FINGERSTICK Routine 05/09/2020 7:27 AM EDT POCT GLUCOSE FINGERSTICK Routine 05/08/2020 8:02 PM EDT POCT GLUCOSE FINGERSTICK Routine 05/08/2020 4:23 PM EDT CBC WITH AUTO DIFFERENTIAL Routine 05/08/2020 8:55 AM EDT MANUAL DIFFERENTIAL STAT 05/08/2020 8 :55 AM EDT CBC AND DIFFERENTIAL Routine 05/08/2020 8:55 AM EDT C-REACTIVE PROTEIN Routine 05/08/2020 8: 55 AM EDT CK Routine 05/08/2020 8:55 AM EDT VANCOMYCIN, RANDOM Routine 05/08/2020 8: 55 AM EDT POCT GLUCOSE FINGERSTICK Routine 05/08/2020 7:22 AM EDT POCT GLUCOSE FINGERSTICK Routine 05/07/2020 8:03 PM EDT POCT GLUCOSE FINGERSTICK Routine 05/07/2020 4:08 PM EDT HEMODIALYSIS INPATIENT Routine 0 2:37 PM EDT POCT GLUCOSE FINGERSTICK Routine 05/07/2020 11:07 AM EDT CYCLOSPORINE LEVEL Routine 05/07/2020 7: 38 AM EDT PROTIME-INR Routine 05/07/2020 7:38 AM EDT CBC (NO DIFF) Routine 05/07/2020 7:38 AM EDT POCT GLUCOSE FINGERSTICK Routine 05/07/2020 7:38 AM EDT AMMONIA Routine 05/07/2020 7:38 AM EDT COMPREHENSIVE METABOLIC PANEL Routine 05/07/2020 7:38 AM EDT POCT GLUCOSE FINGERSTICK Routine 05/06/2020 9:52 PM EDT POCT GLUCOSE FINGERSTICK Routine 05/06/2020 4:04 PM EDT POCT GLUCOSE FINGERSTICK Routine 05/06/2020 1:09 PM EDT SEDIMENTATION RATE Routine 05/06/2020 5: 57 AM EDT C-REACTIVE PROTEIN Routine 05/06/2020 5: 57 AM EDT VANCOMYCIN, RANDOM Routine 05/06/2020 5: 57 AM EDT POCT GLUCOSE FINGERSTICK Routine 05/05/2020 9:30 PM EDT POCT GLUCOSE FINGERSTICK Routine 05/05/2020 5:13 PM EDT HEMODIALYSIS INPATIENT Routine 0 2:14 PM EDT POCT GLUCOSE FINGERSTICK Routine 05/05/2020 12:28 PM EDT CBC (NO DIFF) Routine 05/05/2020 11:42 AM EDT POCT GLUCOSE FINGERSTICK Routine 05/05/2020 8:56 AM EDT POCT GLUCOSE FINGERSTICK Routine 05/05/2020 8:22 AM EDT POCT GLUCOSE FINGERSTICK Routine 05/04/2020 10:19 PM EDT UPPER GI ENDOSCOPY 05/04/2020 6: 38 PM EDT POCT GLUCOSE FINGERSTICK Routine 05/04/2020 6:07 PM EDT POTASSIUM Routine 05/04/2020 1:19 PM EDT POCT GLUCOSE FINGERSTICK Routine 05/04/2020 12:38 PM EDT CBC (NO DIFF) Routine 05/04/2020 8:02 AM EDT MAGNESIUM Routine 05/04/2020 8:02 AM EDT BASIC METABOLIC PANEL Routine 05/04/2020 8:02 AM EDT POCT GLUCOSE FINGERSTICK Routine 05/04/2020 7:41 AM EDT HEMOGLOBIN AND HEMATOCRIT, BLOOD Timed 05/03/2020 11:39 PM EDT POCT GLUCOSE FINGERSTICK Routine 05/03/2020 9:26 PM EDT POCT GLUCOSE FINGERSTICK Routine 05/03/2020 4:34 PM EDT HEMOGLOBIN AND HEMATOCRIT, BLOOD Timed 05/03/2020 4:16 PM EDT POCT GLUCOSE FINGERSTICK Routine 05/03/2020 11:14 AM EDT ANTIBODY IDENTIFICATION STAT 05/03/20 9:56 AM EDT TYPE AND SCREEN STAT 05/03/2020 9:56 AM EDT CBC (NO DIFF) STAT 05/03/2020 9:55 AM EDT POCT GLUCOSE FINGERSTICK Routine 05/03/2020 7:19 AM EDT ECG 12-LEAD STAT 05/03/2020 5:07 AM EDT POCT GLUCOSE FINGERSTICK Routine 05/02/2020 8:25 PM EDT POCT GLUCOSE FINGERSTICK Routine 05/02/2020 5:20 PM EDT HEMODIALYSIS INPATIENT Routine 0 2:31 PM EDT OCCULT BLOOD X 1, STOOL Routine 05/02/20 20 12:49 PM EDT PREPARE RBC Routine 05/02/2020 12:10 PM EDT POCT GLUCOSE FINGERSTICK Routine 05/02/2020 11:52 AM EDT POCT GLUCOSE FINGERSTICK Routine 05/02/2020 8:10 AM EDT POCT GLUCOSE FINGERSTICK Routine 05/01/2020 8:56 PM EDT POCT GLUCOSE FINGERSTICK Routine 05/01/2020 3:56 PM EDT POCT GLUCOSE FINGERSTICK Routine 05/01/2020 11:42 AM EDT TRANSFUSE RED BLOOD CELLS Routine 05/01/2020 10:44 AM EDT TRANSFUSE RED BLOOD CELLS Routine 05/01/2020 9:53 AM EDT CBC (NO DIFF) Routine 05/01/2020 9:07 AM EDT VANCOMYCIN, RANDOM Routine 05/01/2020 9: 07 AM EDT BASIC METABOLIC PANEL Routine 05/01/2020 9:07 AM EDT POCT GLUCOSE FINGERSTICK Routine 05/01/2020 7:45 AM EDT POCT GLUCOSE FINGERSTICK Routine 04/30/2020 8:32 PM EDT POCT GLUCOSE FINGERSTICK Routine 04/30/2020 4:19 PM EDT HEMODIALYSIS INPATIENT Routine 0 2:45 PM EDT ANTIBODY IDENTIFICATION Routine 04/30/20 2:26 PM EDT TYPE AND SCREEN Routine 04/30/2020 2:26 PM EDT POCT GLUCOSE FINGERSTICK Routine 04/30/2020 11:16 AM EDT POCT GLUCOSE FINGERSTICK Routine 04/30/2020 8:19 AM EDT ABORH 2ND SPECIMEN VERIFICATION Routine 04/30/2020 7:59 AM EDT IRON PROFILEC Routine 04/30/2020 7:59 AM EDT CBC (NO DIFF) Routine 04/30/2020 7:59 AM EDT PHOSPHORUS Routine 04/30/2020 7:59 AM EDT FERRITIN Routine 04/30/2020 7:59 AM EDT COMPREHENSIVE METABOLIC PANEL Routine 04/30/2020 7:59 AM EDT POCT GLUCOSE FINGERSTICK Routine 04/29/2020 9:09 PM EDT POCT GLUCOSE FINGERSTICK Routine 04/29/2020 7:36 PM EDT FL C ARM DURING SURGERY Routine 04/29/20 7:16 PM EDT AFB CULTURE Routine 04/29/2020 7:15 PM EDT Abscess in epidural space of lumbar spine TISSUE / BONE CULTURE Routine 04/29/2020 7:15 PM EDT Abscess in epidural space of lumbar spine FUNGAL CULTURE Routine 04/29/2020 7:15 PM EDT Abscess in epidural space of lumbar spine ANAEROBIC CULTURE Routine 04/29/2020 7:1 5 PM EDT Abscess in epidural space of lumbar spine WOUND CULTURE Routine 04/29/2020 6:43 PM EDT Abscess in epidural space of lumbar spine ANAEROBIC CULTURE Routine 04/29/2020 6:4 3 PM EDT HEMOGLOBIN AND HEMATOCRIT, BLOOD Routine 04/29/2020 5:46 PM EDT IN RIVERA FACETECTOMY & FORAMOTOMY 1 VRT SGM LUMBAR 04/29/2020 5:12 PM EDT BASIC METABOLIC PANEL Add-On 04/29/2020 3:33 PM EDT HEMODIALYSIS INPATIENT Routine 0 10:04 AM EDT POCT GLUCOSE FINGERSTICK Routine 04/29/2020 8:07 AM EDT CBC WITH AUTO DIFFERENTIAL Routine 04/29/2020 6:18 AM EDT CYCLOSPORINE LEVEL Routine 04/29/2020 6: 18 AM EDT MAGNESIUM Routine 04/29/2020 6:18 AM EDT VANCOMYCIN, RANDOM Routine 04/29/2020 6: 18 AM EDT COMPREHENSIVE METABOLIC PANEL Routine 04/29/2020 6:18 AM EDT MRSA DNA PROBE Routine 04/29/2020 1:50 AM EDT URINALYSIS, MICROSCOPIC ONLY STAT 04/29/2020 1:44 AM EDT URINALYSIS W/ MICROSCOPIC IF INDICATED (NO CULTURE) STAT 04/29/2020 1:44 AM EDT URINE DRUG SCREEN Routine 04/29/2020 1:4 4 AM EDT POCT GLUCOSE FINGERSTICK Routine 04/28/2020 8:51 PM EDT ACUTE HEPATITIS PANEL Routine 04/28/2020 7:24 PM EDT HEP B CONFIRMATION TUBE Routine 04/28/20 20 7:24 PM EDT PROCALCITONIN STAT 04/28/2020 7:24 PM EDT TROPONIN Routine 04/28/2020 7:24 PM EDT HEPATITIS PANEL, ACUTE Routine 0 7:24 PM EDT POCT GLUCOSE FINGERSTICK Routine 04/28/2020 5:23 PM EDT RESPIRATORY PANEL PCR W/ COVID-19 (SARS-COV-2), [employer] SWAB IN UTM/VTP, 2 HR TAT Routine 04/28/2020 3:05 PM EDT COVID PRE-OP / PRE-PROCEDURE SCREENING ORDER (NO ISOLATION) Routine 04/28/2020 3:05 PM EDT HEMODIALYSIS INPATIENT Routine 0 3:01 PM EDT BLOOD GAS, ARTERIAL W/CO-OXIMETRY Routine 04/28/2020 11:43 AM EDT MRI LUMBAR SPINE WO CONTRAST STAT 04/28/2020 10:52 AM EDT LACTIC ACID, REFLEX STAT 04/28/2020 7 :01 AM EDT BLOOD CULTURE STAT 04/28/2020 7:01 AM EDT BLOOD CULTURE STAT 04/28/2020 6:[address] LUMBAR SPINE WO CONTRAST STAT 04/28/2020 6:[address] CHEST WO CONTRAST DIAGNOSTIC STAT 04/28/2020 6:[address] ABDOMEN PELVIS WO CONTRAST STAT 04/28/2020 6:08 AM EDT XR CHEST 1 VW STAT 04/28/2020 1:52 AM EDT ECG 12-LEAD STAT 04/28/2020 12:20 AM EDT LACTIC ACID REFLEX TIMER STAT 04/28/2020 12:17 AM EDT LACTIC ACID, PLASMA STAT 04/28/2020 1 2:17 AM EDT GOLD TOP - SST STAT 04/28/2020 12:16 AM EDT DK GREEN TOP STAT 04/28/2020 12:16 AM EDT CBC WITH AUTO DIFFERENTIAL STAT 04/28/2020 12:16 AM EDT LAVENDER TOP STAT 04/28/2020 12:16 AM EDT LIGHT BLUE TOP STAT 04/28/2020 12:16 AM EDT RAINBOW DRAW STAT 04/28/2020 12:16 AM EDT TROPONIN STAT 04/28/2020 12:16 AM EDT CBC AND DIFFERENTIAL STAT 04/28/2020 12:16 AM EDT MAGNESIUM STAT 04/28/2020 12:16 AM EDT COMPREHENSIVE METABOLIC PANEL STAT 04/28/2020 12:16 AM EDT SCANNED - TELEMETRY 04/28/2020 SCANNED - TELEMETRY 04/28/2020 SCANNED - TELEMETRY 04/28/2020 SCANNED - TELEMETRY 04/28/2020 SCANNED - TELEMETRY 04/28/2020 SCANNED - TELEMETRY 04/28/2020 documented in this encounter Results * (ABNORMAL) POC Glucose Once (05/13/2020 11:28 AM EDT) Glucose 151(H) 70 - 130 mg/dL 05/13/2020 11:37 AM EDT [facility] Blood 05/13/2020 11:2 8 AM EDT 05/13/2020 11:37 AM EDT Gabbi Paul II, DO POINT OF CARE TEST ORDERA BLES Final Result Performing Organization Address City/[facility]/ZIP Co de Phone Number [facility]
[address] [place] [address], * POC Glucose Once (05/13/2020 8:50 AM EDT) Glucose 96 70 - 130 mg/dL 05/13/2020 8:55 AM EDT [facility] Blood 05/13/2020 8:50 AM EDT 05/13/2020 8:55 AM EDT Gabbi Paul II, DO POINT OF CARE TEST ORDERA BLES Final Result Performing Organization Address [facility] Co de Phone Number [facility]
[address] [place] [address], * (ABNORMAL) C-reactive Protein (05/13/2020 8:31 AM EDT) C-Reactive Protein 14.82(H) 0.00 - 0.50 mg/dL 05/13/2020 8:55 AM EDT [facility] Blood Line / Unknown 05/13/2020 8: 31 AM EDT 05/13/2020 8:31 AM EDT Cayetano Rodriguez MD LAB BLOOD ORDERABLES Final Resul t Performing Organization Address City/[facility]/ZIP Co de Phone Number [facility]
[address] [place] [address], [place] [phone] * POC Glucose Once (05/13/2020 7:30 AM EDT) Glucose 117 70 - 130 mg/dL 05/13/2020 7:32 AM EDT [facility] Blood 05/13/2020 7:30 AM EDT 05/13/2020 7:32 AM EDT us Gabbi Paul II, DO POINT OF CARE TEST ORDERA BLES Final Result Performing Organization Address City/[facility]/ZIP Co de Phone Number [facility]
[address] [place] [address], [place] [phone] * (ABNORMAL) POC Glucose Once (05/12/2020 8:17 PM EDT) Glucose 144(H) 70 - 130 mg/dL 05/12/2020 8:18 PM EDT [facility] Blood 05/12/2020 8:17 PM EDT 05/12/2020 8:18 PM EDT us Gabbi Paul II, DO POINT OF CARE TEST ORDERA BLES Final Result Performing Organization Address [facility] Co de Phone Number [facility]
[address] [place] [address], [place] [phone] * (ABNORMAL) POC Glucose Once (05/12/2020 4:16 PM EDT) Glucose 138(H) 70 - 130 mg/dL 05/12/2020 4:17 PM EDT [facility] Blood 05/12/2020 4:16 PM EDT 05/12/2020 4:17 PM EDT us Gabbi Paul II, DO POINT OF CARE TEST ORDERA BLES Final Result Performing Organization Address City/[facility]/ZIP Co de Phone Number [facility]
[address] [place] [address], [place] [phone] * POC Glucose Once (05/12/2020 11:15 AM EDT) Glucose 129 70 - 130 mg/dL 05/12/2020 11:37 AM EDT [facility] Blood 05/12/2020 11:1 5 AM EDT 05/12/2020 11:37 AM EDT us Gabbi Tomastton II, DO POINT OF CARE TEST ORDERA BLES Final Result Performing Organization Address City/[facility]/ZIP Co de Phone Number [facility]
[address] [place] [address], * POC Glucose Once (05/12/2020 8:06 AM EDT) Glucose 126 70 - 130 mg/dL 05/12/2020 8:08 AM EDT [facility] Blood 05/12/2020 8:06 AM EDT 05/12/2020 8:08 AM EDT Gabbi Paul II, DO POINT OF CARE TEST ORDERA BLES Final Result Performing Organization Address [facility] Co de Phone Number [facility]
[address] [place] [address], * (ABNORMAL) POC Glucose Once (05/11/2020 8:19 PM EDT) Glucose 186(H) 70 - 130 mg/dL 05/11/2020 8:21 PM EDT [facility] Blood 05/11/2020 8:19 PM EDT 05/11/2020 8:21 PM EDT Odette Grace MD POINT OF CARE TEST ORDERABLES Fi nal Result Performing Organization Address [facility] Co de Phone Number [facility]
[address] [place] [address], [place] [phone] * POC Glucose Once (05/11/2020 4:49 PM EDT) Glucose 121 70 - 130 mg/dL 05/11/2020 4:54 PM EDT [facility] Blood 05/11/2020 4:49 PM EDT 05/11/2020 4:54 PM EDT us Odette Grace MD POINT OF CARE TEST ORDERABLES Fi nal Result Performing Organization Address City/[facility]/ZIP Co de Phone Number [facility]
[address] [place] [address], * (ABNORMAL) POC Glucose Once (05/11/2020 7:28 AM EDT) Glucose 158(H) 70 - 130 mg/dL 05/11/2020 7:29 AM EDT [facility] Blood 05/11/2020 7:28 AM EDT 05/11/2020 7:29 AM EDT Odette Grace MD POINT OF CARE TEST ORDERABLES Fi nal Result Performing Organization Address City/[facility]/ZIP Co de Phone Number [facility]
[address] [place] [address], * (ABNORMAL) CBC Auto Differential (05/11/2020 7:00 AM EDT) WBC 6.60 3.40 - 10.80 10*3/mm3 05/11/2020 7:34 AM EDT [facility] RBC 2.72(L) 4.14 - 5.80 10*6/mm3 05/11/2020 7:34 AM EDT [facility] Hemoglobin 8.3(L) 13.0 - 17.7 g/dL 05/11/2020 7:34 AM EDT [facility] Hematocrit 27.2(L) 37.5 - 51.0 % 05/11/2020 7:34 AM EDT [facility] MCV 100.0(H) 79.0 - 97.0 fL [facility]2020 [facility] MCH 30.5 26.6 - 33.0 pg 05/11/2020 7:34 AM EDT [facility] MCHC 30.5(L) 31.5 - 35.7 g/dL [facility]2020 [facility] RDW 14.0 12.3 - 15.4 % 05/11/2020 7:34 AM EDT [facility] RDW-SD 50.4 37.0 - 54.0 fl 05/11/2020 [facility] MPV 9.4 6.0 - 12.0 fL 05/11/2020 [facility] Platelets 388 140 - 450 10*3/mm3 05/11/2020 7:34 AM [facility] Neutrophil % 63.2 42.7 - 76.0 % 05/11/2020 7:34 AM [facility] Lymphocyte % 23.0 19.6 - 45.3 % 05/11/2020 7:34 AM [facility] Monocyte % 9.1 5.0 - 12.0 % 05/11/2020 7:34 AM [facility] Eosinophil % 2.6 0.3 - 6.2 % 05/11/2020 7:34 AM [facility] Basophil % 0.3 0.0 - 1.5 % 05/11/2020 [facility] Immature Grans % 1.8(H) 0.0 - 0.5 % 05/11/2020 7[facility] Neutrophils, Absolute 4.17 1.70 - 7.00 10*3/mm3 05/11/2020 7[facility] Lymphocytes, Absolute 1.52 0.70 - 3.10 10*3/mm3 05/11/2020 7:[facility] Monocytes, Absolute 0.60 0.10 - 0.90 10*3/mm3 05/11/2020 7[facility] Eosinophils, Absolute 0.17 0.00 - 0.40 10*3/mm3 05/11/2020 7:34 AM EDT [facility] Basophils, Absolute 0.02 0.00 - 0.20 10*3/mm3 05/11/2020 7:34 AM EDT [facility] Immature Grans, Absolute 0.12(H) 0.00 - 0.05 10*3/mm3 05/11/2020 7:34 AM EDT [facility] nRBC 0.0 0.0 - 0.2 /100 WBC 05/11/2020 7:34 AM EDT [facility] Blood Venipuncture / Unknown 05/11/2020 7:00 AM EDT 05/11/2020 7:20 AM EDT us Cayetano Rodriguez MD LAB BLOOD ORDERABLES Final Resul t [facility]
[address] [place] [address], * (ABNORMAL) Comprehensive Metabolic Panel (05/11/2020 7:00 AM EDT) Glucose 115(H) 65 - 99 mg/dL 05/11/2020 8:02 AM EDT [facility] BUN 65(H) 6 - 20 mg/dL 05/11/2020 8:02 AM EDT [facility] Creatinine 8.56(H) 0.76 - 1.27 mg/dL 05/11/2020 8:02 AM EDT [facility] Sodium 134(L) 136 - 145 mmol/L 05/11/2020 8:02 AM EDT [facility] Potassium 5.0 3.5 - 5.2 mmol/L 05/11/2020 8:02 AM EDT [facility] Chloride 94(L) 98 - 107 mmol/L 05/11/2020 8:02 AM EDT [facility] CO2 20.0(L) 22.0 - 29.0 mmol/L 05/11/2020 8:02 AM [facility] Calcium 9.2 8.6 - 10.5 mg/dL 05/11/2020 8:02 AM [facility] Total Protein 6.6 6.0 - 8.5 g/dL 05/11/2020 8:02 AM [facility] Albumin 3.30(L) 3.50 - 5.20 g/dL 05/11/2020 8:02 AM [facility] ALT (SGPT) 12 1 - 41 U/L 05/11/2020 8:02 AM [facility] AST (SGOT) 14 1 - 40 U/L 05/11/2020 8:02 AM [facility] Alkaline Phosphatase 80 39 - 117 U/L 05/11/2020 8:02 AM [facility] Total Bilirubin 0.2 0.0 - 1.2 mg/dL 05/11/2020 8:02 AM [facility] eGFR Non Amer 7(L) >60 mL/min/1.7 3 05/11/2020 8:02 AM [facility] Comment:<15 Indicative of ki dney failure. eGFR Amer 05/11/2020 8:02 AM [facility] Comment:<15 Indicative of ki dney failure. Globulin 3.3 gm/dL 05/11/2020 8:02 AM [facility] A/G Ratio 1.0 g/dL 05/11/2020 8:02 AM [facility] BUN/Creatinine Ratio 7.6 7.0 - 25.0 05/11/2020 8:02 AM [facility] Anion Gap 20.0(H) 5.0 - 15.0 mmol/L 05/11/2020 8:02 AM [facility] Blood Venipuncture / Unknown 05/11/2020 7:00 AM EDT 05/11/2020 7:19 AM T [facility] - 05/11/2020 8:02 AM EDT GFR Normal >60 Chronic Kidney Disease <60 Kidney Failure <15 us Cayetano Rodriguez MD LAB BLOOD ORDERABLES Final Resul t Performing Organization Address [facility] Co de Phone Number [facility]
[address] [place] [address], * (ABNORMAL) C-reactive Protein (05/11/2020 7:00 AM EDT) C-Reactive Protein 15.69(H) 0.00 - 0.50 mg/dL 05/11/2020 7:57 AM EDT [facility] Blood Venipuncture / Unknown 05/11/2020 7:00 AM EDT 05/11/2020 7:20 AM EDT us Cayetano Rodriguez MD LAB BLOOD ORDERABLES Final Resul t Performing Organization Address [facility] Co de Phone Number [facility]
[address] [place] [address], * Vancomycin, Random (05/11/2020 7:00 AM EDT) Vancomycin Random 19.20 5.00 - 40.00 mcg/mL 05/11/2020 8:04 AM EDT [facility] Blood Venipuncture / Unknown 05/11/2020 7:00 AM EDT 05/11/2020 7:20 AM EDT us Callie Schwartz LAB BLOOD ORDERABLES Final Resul t Performing Organization Address [facility]/ZIP Co de Phone Number [facility]
[address] [place] [address], * POC Glucose Once (05/10/2020 9:00 PM EDT) Glucose 128 70 - 130 mg/dL 05/10/2020 9:02 PM EDT [facility] Blood 05/10/2020 9:00 PM EDT 05/10/2020 9:02 PM EDT us Odette Grace MD POINT OF CARE TEST ORDERABLES Fi nal Result Performing Organization Address [facility] de Phone Number [facility]
[address] [place] [address], [place] [phone] * POC Glucose Once (05/10/2020 4:11 PM EDT) Glucose 112 70 - 130 mg/dL 05/10/2020 4:12 PM EDT [facility] Blood 05/10/2020 4:11 PM EDT 05/10/2020 4:12 PM EDT us Odette Grace MD POINT OF CARE TEST ORDERABLES Fi nal Result Performing Organization Address [facility] Phone Number [facility]
[address] [place] [address], [place] [phone] * POC Glucose Once (05/10/2020 11:30 AM EDT) Glucose 130 70 - 130 mg/dL 05/10/2020 11:34 AM EDT [facility] Blood 05/10/2020 11:3 0 AM EDT 05/10/2020 11:34 AM EDT us Odette Grace MD POINT OF CARE TEST ORDERABLES Fi nal Result Performing Organization Address [facility] de Phone Number [facility]
[address] [place] [address], [place] [phone] * POC Glucose Once (05/10/2020 7:32 AM EDT) Glucose 116 70 - 130 mg/dL 05/10/2020 7:34 AM EDT [facility] Blood 05/10/2020 7:32 AM EDT 05/10/2020 7:34 AM EDT us Odette Grace MD POINT OF CARE TEST ORDERABLES Fi nal Result Performing Organization Address City/[facility]/ZIP Co de Phone Number [facility]
[address] [place] [address], [place] [phone] * (ABNORMAL) POC Glucose Once (05/09/2020 8:15 PM EDT) Glucose 144(H) 70 - 130 mg/dL 05/09/2020 8:16 PM EDT [facility] Blood 05/09/2020 8:15 PM EDT 05/09/2020 8:16 PM EDT us Odette Grace MD POINT OF CARE TEST ORDERABLES Fi nal Result Performing Organization Address [facility] Co de Phone Number [facility]
[address] [place] [address], * (ABNORMAL) POC Glucose Once (05/09/2020 4:01 PM EDT) Glucose 133(H) 70 - 130 mg/dL 05/09/2020 4:19 PM EDT [facility] Blood 05/09/2020 4:01 PM EDT 05/09/2020 4:19 PM EDT us Odette Grace MD POINT OF CARE TEST ORDERABLES Fi nal Result Performing Organization Address City/[facility] Co de Phone Number [facility]
[address] [place] [address], [place] [phone] * (ABNORMAL) POC Glucose Once (05/09/2020 11:54 AM EDT) Glucose 136(H) 70 - 130 mg/dL 05/09/2020 12:06 PM EDT [facility] Blood 05/09/2020 11:5 4 AM EDT 05/09/2020 12:06 PM EDT us Odette Grace MD POINT OF CARE TEST ORDERABLES Fi nal Result Performing Organization Address City/[facility]/ZIP Co de Phone Number [facility]
[address] [place] [address], [place] [phone] * POC Glucose Once (05/09/2020 7:27 AM EDT) Glucose 124 70 - 130 mg/dL 05/09/2020 7:50 AM EDT [facility] Blood 05/09/2020 7:27 AM EDT 05/09/2020 7:50 AM EDT us Odette Grace MD POINT OF CARE TEST ORDERABLES Fi nal Result Performing Organization Address [facility] de Phone Number [facility]
[address] [place] [address], * (ABNORMAL) POC Glucose Once (05/08/2020 8:02 PM EDT) Glucose 186(H) 70 - 130 mg/dL 05/08/2020 8:03 PM EDT [facility] Blood 05/08/2020 8:02 PM EDT 05/08/2020 8:03 PM EDT us Alverto Ferrera MD POINT OF CARE TEST ORDERABLES Final Result Performing Organization Address City/[facility] Co de Phone Number [facility]
[address] [place] [address], [place] [phone] * POC Glucose Once (05/08/2020 4:23 PM EDT) Glucose 124 70 - 130 mg/dL 05/08/2020 4:33 PM EDT [facility] Blood 05/08/2020 4:23 PM EDT 05/08/2020 4:33 PM EDT us Alverto Ferrera MD POINT OF CARE TEST ORDERABLES Final Result [facility]
[address] [place] [address], * (ABNORMAL) Manual Differential (05/08/2020 8:55 AM EDT) Neutrophil % 71.0 42.7 - 76.0 % 05/08/2020 10:16 AM EDT [facility] Lymphocyte % 13.0(L) 19.6 - 45.3 % 05/08/2020 10:16 AM EDT [facility] Monocyte % 10.0 5.0 - 12.0 % 05/08/2020 10:16 AM EDT [facility] Eosinophil % 0.0(L) 0.3 - 6.2 % 05/08/2020 10:16 AM EDT [facility] Basophil % 0.0 0.0 - 1.5 % 05/08/2020 10:16 AM EDT [facility] Bands % 3.0 0.0 - 5.0 % 05/08/2020 10:16 AM EDT [facility] Metamyelocyte % 1.0(H) 0.0 - 0.0 % 05/08/2020 10:16 AM EDT [facility] Myelocyte % 2.0(H) 0.0 - 0.0 % 05/08/2020 10:16 AM EDT [facility] Neutrophils Absolute 4.60 1.70 - 7.00 10*3/mm3 05/08/2020 10:16 AM EDT [facility] Lymphocytes Absolute 0.81 0.70 - 3.10 10*3/mm3 05/08/2020 10:16 AM EDT [facility] Monocytes Absolute 0.62 0.10 - 0.90 10*3/mm3 05/08/2020 10:16 AM EDT [facility] Eosinophils Absolute 0.00 0.00 - 0.40 10*3/mm3 05/08/2020 10:16 AM EDT [facility] Basophils Absolute 0.00 0.00 - 0.20 10*3/mm3 05/08/2020 10:16 AM EDT [facility] RBC Morphology Normal Normal 05/08/2020 10:16 AM EDT [facility] WBC Morphology Normal Normal 05/08/2020 10:16 AM EDT [facility] Platelet Morphology Normal Normal 05/08/2020 10:16 AM EDT [facility] Blood Venipuncture / Unknown 05/08/2020 8:55 AM EDT 05/08/2020 9:04 AM EDT us Cayetano Rodriguez MD LAB BLOOD ORDERABLES Final Resul t [facility]
[address] [place] [address], * (ABNORMAL) CBC Auto Differential (05/08/2020 8:55 AM EDT) WBC 6.21 3.40 - 10.80 10*3/mm3 05/08/2020 10:16 AM EDT [facility] RBC 2.52(L) 4.14 - 5.80 10*6/mm3 05/08/2020 10:16 AM EDT [facility] Hemoglobin 7.6(L) 13.0 - 17.7 g/dL 05/08/2020 10:16 AM EDT [facility] Hematocrit 25.0(L) 37.5 - 51.0 % 05/08/2020 10:16 AM EDT [facility] MCV 99.2(H) 79.0 - 97.0 fL 05/08/2020 10:16 AM EDT [facility] MCH 30.2 26.6 - 33.0 pg 05/08/2020 10:16 AM EDT [facility] MCHC 30.4(L) 31.5 - 35.7 g/dL 05/08/2020 10:16 AM EDT [facility] RDW 14.2 12.3 - 15.4 % 05/08/2020 10:16 AM EDT [facility] RDW-SD 51.2 37.0 - 54.0 fl 05/08/2020 10:16 AM EDT [facility] MPV 9.7 6.0 - 12.0 fL 05/08/2020 10:16 AM EDT [facility] Platelets 447 140 - 450 10*3/mm3 05/08/2020 10:16 AM EDT [facility] Blood Venipuncture / Unknown 05/08/2020 8:55 AM EDT 05/08/2020 9:04 AM EDT us Cayetano Rodriguez MD LAB BLOOD ORDERABLES Final Resul t Performing Organization Address City/[facility]/ZIP Co de Phone Number [facility]
[address] [place] [address], * CK (05/08/2020 8:55 AM EDT) Creatine Kinase 49 20 - 200 U/L 05/08/2020 9:30 AM EDT [facility] Blood Venipuncture / Unknown 05/08/2020 8:55 AM EDT 05/08/2020 9:03 AM EDT us Cayetano Rodriguez MD LAB BLOOD ORDERABLES Final Resul t Performing Organization Address City/[facility]/ZIP Co de Phone Number [facility]
[address] [place] [address], * Vancomycin, Random (05/08/2020 8:55 AM EDT) Vancomycin Random 21.30 5.00 - 40.00 mcg/mL 05/08/2020 9:32 AM EDT [facility] Blood Venipuncture / Unknown 05/08/2020 8:55 AM EDT 05/08/2020 9:03 AM EDT us Karli Camp [facility] LAB BLOOD ORDERABLES Final Result [facility]
[address] [place] [address], * (ABNORMAL) C-reactive Protein (05/08/2020 8:55 AM EDT) C-Reactive Protein 12.16(H) 0.00 - 0.50 mg/dL 05/08/2020 9:29 AM EDT [facility] Blood Venipuncture / Unknown 05/08/2020 8:55 AM EDT 05/08/2020 9:03 AM EDT us Cayetano Rodriguez MD LAB BLOOD ORDERABLES Final Resul t Performing Organization Address [facility]/ZIP Co de Phone Number [facility]
[address] [place] [address], * (ABNORMAL) POC Glucose Once (05/08/2020 7:22 AM EDT) Glucose 161(H) 70 - 130 mg/dL 05/08/2020 7:39 AM EDT [facility] Blood 05/08/2020 7:22 AM EDT 05/08/2020 7:39 AM EDT us Alverto Ferrera MD POINT OF CARE TEST ORDERABLES Final Result Performing Organization Address City/[facility]/ZIP Co de Phone Number [facility]
[address] [place] [address], * (ABNORMAL) POC Glucose Once (05/07/2020 8:03 PM EDT) Glucose 212(H) 70 - 130 mg/dL 05/07/2020 8:05 PM EDT [facility] Blood 05/07/2020 8:03 PM EDT 05/07/2020 8:05 PM EDT us Alverto Ferrera MD POINT OF CARE TEST ORDERABLES Final Result Performing Organization Address [facility]/ZIP Co de Phone Number [facility]
[address] [place] [address], * (ABNORMAL) POC Glucose Once (05/07/2020 4:08 PM EDT) Glucose 180(H) 70 - 130 mg/dL 05/07/2020 4:16 PM EDT [facility] Blood 05/07/2020 4:08 PM EDT 05/07/2020 4:16 PM EDT us Alverto Ferrera MD POINT OF CARE TEST ORDERABLES Final Result Performing Organization Address [facility] Co de Phone Number [facility]
[address] [place] [address], * (ABNORMAL) POC Glucose Once (05/07/2020 11:07 AM EDT) Glucose 273(H) 70 - 130 mg/dL 05/07/2020 11:34 AM EDT [facility] Blood 05/07/2020 11:0 7 AM EDT 05/07/2020 11:34 AM EDT us Alverto Ferrera MD POINT OF CARE TEST ORDERABLES Final Result Performing Organization Address [facility] Co de Phone Number [facility]
[address] [place] [address], [place] [phone] * (ABNORMAL) POC Glucose Once (05/07/2020 7:38 AM EDT) Glucose 144(H) 70 - 130 mg/dL 05/07/2020 7:40 AM EDT [facility] Blood 05/07/2020 7:38 AM EDT 05/07/2020 7:40 AM EDT us Alverto Ferrera MD POINT OF CARE TEST ORDERABLES Final Result [facility]
[address] [phone], * (ABNORMAL) Cyclosporine Level (05/07/2020 7:38 AM [...] Mass Spectrometry (LC-MS/MS) please use test code [id number]. ??For testing performed by Immunoassay, please use test code 510302. This test was developed and its performance characteristics determined by [employer]. It has not been cleared or approved by the Food and Drug Administration. Blood Venipuncture / Unknown 05/07/2020 7:38 AM EDT 05/07/2020 7:50 AM EDT Narrative [facility] - 05/11/2020 3:08 PM EDT Performed at: ??[address] - [facility] ??[id number] Black Puller: Jeny Pereyra MD, Phone: ??[phone] us Karishma Hodge MD LAB BLOOD ORDERABLES Yoselin l Result [facility] [address] [place] [address], * Ammonia (05/07/2020 7:38 AM EDT) Ammonia 18 16 - 60 umol/L 05/07/2020 8:34 AM EDT [facility] Blood Venipuncture / Unknown 05/07/2020 7:38 AM EDT 05/07/2020 7:49 AM EDT us Alverto Ferrera MD LAB BLOOD ORDERABLES Final Res ult Performing Organization Address [facility] Co de Phone Number [facility]
[address] [place] [address], * (ABNORMAL) Protime-INR (05/07/2020 7:38 AM EDT) Protime 15.8(H) 11.5 - 14.0 Seconds 05/07/2020 8:15 AM EDT [facility] INR 1.30(H) 0.85 - 1.16 05/07/2020 8:15 AM EDT [facility] Blood Venipuncture / Unknown 05/07/2020 7:38 AM EDT 05/07/2020 7:50 AM EDT us Alverto Ferrera MD LAB BLOOD ORDERABLES Final Res ult Performing Organization Address City/[facility]/ZIP Co de Phone Number [facility]
[address] [place] [address], * (ABNORMAL) CBC (No Diff) (05/07/2020 7:38 AM EDT) WBC 9.30 3.40 - 10.80 10*3/mm3 05/07/2020 8:01 AM EDT [facility] RBC 2.58(L) 4.14 - 5.80 10*6/mm3 05/07/2020 8:01 AM EDT [facility] Hemoglobin 7.9(L) 13.0 - 17.7 g/dL 05/07/2020 8:01 AM EDT [facility] Hematocrit 25.3(L) 37.5 - 51.0 % 05/07/2020 8:01 AM EDT [facility] MCV 98.1(H) 79.0 - 97.0 fL 05/07/2020 8:01 AM EDT [facility] MCH 30.6 26.6 - 33.0 pg 05/07/2020 8:01 AM EDT [facility] MCHC 31.2(L) 31.5 - 35.7 g/dL 05/07/2020 8:01 AM EDT [facility] RDW 14.3 12.3 - 15.4 % 05/07/2020 8:01 AM EDT [facility] RDW-SD 49.7 37.0 - 54.0 fl 05/07/2020 8:01 AM EDT [facility] MPV 9.6 6.0 - 12.0 fL 05/07/2020 8:01 AM EDT [facility] Platelets 478(H) 140 - 450 10*3/mm3 05/07/2020 8:01 AM [facility] Blood Venipuncture / Unknown 05/07/2020 7:38 AM EDT 05/07/2020 7:54 AM EDT us Alverto Ferrera MD LAB BLOOD ORDERABLES Final Res ult [facility]
[address] [place] [address], * (ABNORMAL) Comprehensive Metabolic Panel (05/07/2020 7:38 AM EDT) Glucose 140(H) 65 - 99 mg/dL 05/07/2020 8:37 AM EDT [facility] BUN 39(H) 6 - 20 mg/dL 05/07/2020 8:37 AM [facility] Creatinine 7.56(H) 0.76 - 1.27 mg/dL 05/07/2020 8:37 AM [facility] Sodium 133(L) 136 - 145 mmol/L 05/07/2020 8:37 AM [facility] Potassium 3.7 3.5 - 5.2 mmol/L 05/07/2020 8:37 AM [facility] Chloride 96(L) 98 - 107 mmol/L 05/07/2020 8:37 AM [facility] CO2 21.0(L) 22.0 - 29.0 mmol/L 05/07/2020 8:37 AM [facility] Calcium 8.9 8.6 - 10.5 mg/dL 05/07/2020 8:37 AM [facility] Total Protein 6.2 6.0 - 8.5 g/dL 05/07/2020 8:37 AM [facility] Albumin 3.00(L) 3.50 - 5.20 g/dL 05/07/2020 8:37 AM [facility] ALT (SGPT) 14 1 - 41 U/L 05/07/2020 8:37 AM [facility] AST (SGOT) 13 1 - 40 U/L 05/07/2020 8:37 AM [facility] Alkaline Phosphatase 66 39 - 117 U/L 05/07/2020 8:37 AM [facility] Total Bilirubin <0.2 0.0 - 1.2 mg/dL 05/07/2020 8:37 AM [facility] eGFR Non Amer 8(L) >60 mL/min/1.7 3 05/07/2020 8:37 AM [facility] Comment:<15 Indicative of ki dney failure. eGFR Amer 05/07/2020 8:37 AM [facility] Comment:<15 Indicative of ki dney failure. Globulin 3.2 gm/dL 05/07/2020 8:37 AM EDT [facility] A/G Ratio 0.9 g/dL 05/07/2020 8:37 AM EDT [facility] BUN/Creatinine Ratio 5.2(L) 7.0 - 25.0 05/07/2020 8:37 AM EDT [facility] Anion Gap 16.0(H) 5.0 - 15.0 mmol/L 05/07/2020 8:37 AM EDT [facility] Blood Venipuncture / Unknown 05/07/2020 7:38 AM EDT 05/07/2020 7:50 AM EDT Narrative [facility] - 05/07/2020 8:37 AM EDT GFR Normal >60 Chronic Kidney Disease <60 Kidney Failure <15 us Alverot Ferrera MD LAB BLOOD ORDERABLES Final Res ult Performing Organization Address City/[facility]/ZIP Co de Phone Number [facility]
[address] [place] [address], * (ABNORMAL) POC Glucose Once (05/06/2020 9:52 PM EDT) Glucose 171(H) 70 - 130 mg/dL 05/06/2020 10:01 PM EDT [facility] Blood 05/06/2020 9:52 PM EDT 05/06/2020 10:01 PM EDT us Alverto Ferrera MD POINT OF CARE TEST ORDERABLES Final Result Performing Organization Address [facility]/ZIP Co de Phone Number [facility]
[address] [place] [address], [place] [phone] * (ABNORMAL) POC Glucose Once (05/06/2020 4:04 PM EDT) Glucose 268(H) 70 - 130 mg/dL 05/06/2020 4:16 PM EDT [facility] Blood 05/06/2020 4:04 PM EDT 05/06/2020 4:16 PM EDT us Alverto Ferrera MD POINT OF CARE TEST ORDERABLES Final Result Performing Organization Address [facility] de Phone Number [facility]
[address] [place] [address], [place] [phone] * (ABNORMAL) POC Glucose Once (05/06/2020 1:09 PM EDT) Glucose 157(H) 70 - 130 mg/dL 05/06/2020 1:20 PM EDT [facility] Blood 05/06/2020 1:09 PM EDT 05/06/2020 1:20 PM EDT us Alverto Ferrera MD POINT OF CARE TEST ORDERABLES Final Result Performing Organization Address [facility] de Phone Number [facility]
[address] [place] [address], [place] [phone] * (ABNORMAL) C-reactive Protein (05/06/2020 5:57 AM EDT) C-Reactive Protein 18.73(H) 0.00 - 0.50 mg/dL 05/06/2020 8:45 AM EDT [facility] Blood Venipuncture / Unknown 05/06/2020 5:57 AM EDT 05/06/2020 8:22 AM EDT us Cayetano Rodriguez MD LAB BLOOD ORDERABLES Final Resul t Performing Organization Address [facility] Co de Phone Number [facility]
[address] [place] [address], [place] [phone] * (ABNORMAL) Sedimentation Rate (05/06/2020 5:57 AM EDT) Sed Rate 44(H) 0 - 15 mm/hr 05/06/2020 8:29 AM EDT [facility] Blood Venipuncture / Unknown 05/06/2020 5:57 AM EDT 05/06/2020 8:21 AM EDT us Cayetano Rodriguez MD LAB BLOOD ORDERABLES Final Resul t Performing Organization Address [facility] Co de Phone Number [facility]
[address] [place] [address], [place] [phone] * Vancomycin, Random (05/06/2020 5:57 AM EDT) Vancomycin Random 23.20 5.00 - 40.00 mcg/mL 05/06/2020 8:45 AM EDT [facility] Blood Venipuncture / Unknown 05/06/2020 5:57 AM EDT 05/06/2020 8:22 AM EDT us Dewey Betancourt MD LAB BLOOD ORDERABLES Final Res ult Performing Organization Address [facility] Co de Phone Number [facility]
[address] [place] [address], [place] [phone] * (ABNORMAL) POC Glucose Once (05/05/2020 9:30 PM EDT) Glucose 177(H) 70 - 130 mg/dL 05/05/2020 9:31 PM EDT [facility] Blood 05/05/2020 9:30 PM EDT 05/05/2020 9:31 PM EDT us Odette Grace MD POINT OF CARE TEST ORDERABLES Fi nal Result Performing Organization Address [facility] Co de Phone Number [facility]
[address] [place] [address], [place] [phone] * (ABNORMAL) POC Glucose Once (05/05/2020 5:13 PM EDT) Glucose 183(H) 70 - 130 mg/dL 05/05/2020 5:15 PM EDT [facility] Blood 05/05/2020 5:13 PM EDT 05/05/2020 5:15 PM EDT us Odette Grace MD POINT OF CARE TEST ORDERABLES Fi nal Result Performing Organization Address [facility] Co de Phone Number [facility]
[address] [place] [address], * (ABNORMAL) POC Glucose Once (05/05/2020 12:28 PM EDT) Glucose 162(H) 70 - 130 mg/dL 05/05/2020 12:30 PM EDT [facility] Blood 05/05/2020 12:2 8 PM EDT 05/05/2020 12:30 PM EDT us Odette Grace MD POINT OF CARE TEST ORDERABLES Fi nal Result Performing Organization Address [facility] de Phone Number [facility]
[address] [place] [address], * (ABNORMAL) CBC (No Diff) (05/05/2020 11:42 AM EDT) WBC 10.91(H) 3.40 - 10.80 10*3/mm3 05/05/2020 12:11 PM EDT [facility] RBC 2.65(L) 4.14 - 5.80 10*6/mm3 05/05/2020 12:11 PM EDT [facility] Hemoglobin 8.0(L) 13.0 - 17.7 g/dL 05/05/2020 12:11 PM EDT [facility] Hematocrit 26.8(L) 37.5 - 51.0 % 05/05/2020 12:11 PM EDT [facility] MCV 101.1(H) 79.0 - 97.0 fL 05/05/2020 12:11 PM EDT [facility] MCH 30.2 26.6 - 33.0 pg 05/05/2020 12:11 PM EDT [facility] MCHC 29.9(L) 31.5 - 35.7 g/dL 05/05/2020 12:11 PM EDT [facility] RDW 14.7 12.3 - 15.4 % 05/05/2020 12:11 PM EDT [facility] RDW-SD 53.6 37.0 - 54.0 fl 05/05/2020 12:11 PM EDT [facility] MPV 9.8 6.0 - 12.0 fL 05/05/2020 12:11 PM EDT [facility] Platelets 460(H) 140 - 450 10*3/mm3 05/05/2020 12:11 PM EDT [facility] Blood Venipuncture / Unknown 05/05/2020 11:42 AM EDT 05/05/2020 12:01 PM EDT Dewey Betancourt MD LAB BLOOD ORDERABLES Final Res ult Performing Organization Address City/[facility]/ZIP Co de Phone Number [facility]
[address] [place] [address], [place] [phone] * (ABNORMAL) POC Glucose Once (05/05/2020 8:56 AM EDT) Glucose 131(H) 70 - 130 mg/dL 05/05/2020 8:58 AM EDT [facility] Blood 05/05/2020 8:56 AM EDT 05/05/2020 8:58 AM EDT us Odette Grace MD POINT OF CARE TEST ORDERABLES Fi nal Result Performing Organization Address City/[facility]/ZIP Co de Phone Number [facility]
[address] [place] [address], [place] [phone] * (ABNORMAL) POC Glucose Once (05/05/2020 8:22 AM EDT) Glucose 136(H) 70 - 130 mg/dL 05/05/2020 8:23 AM EDT [facility] Blood 05/05/2020 8:22 AM EDT 05/05/2020 8:23 AM EDT us Odette Grace MD POINT OF CARE TEST ORDERABLES Fi nal Result Performing Organization Address City/[facility]/ZIP Co de Phone Number [facility]
[address] [place] [address], [place] [phone] * (ABNORMAL) POC Glucose Once (05/04/2020 10:19 PM EDT) Glucose 146(H) 70 - 130 mg/dL 05/04/2020 10:20 PM EDT [facility] Blood 05/04/2020 10:1 9 PM EDT 05/04/2020 10:20 PM EDT us Odette Grace MD POINT OF CARE TEST ORDERABLES Fi nal Result Performing Organization Address [facility] Co de Phone Number [facility]
[address] [place] [address], [place] [phone] * UPPER GI ENDOSCOPY (05/04/2020 6:38 PM EDT) us Dewey Betancourt MD INTERFACE NEEDS Final Result * (ABNORMAL) POC Glucose Once (05/04/2020 6:07 PM EDT) Glucose 150(H) 70 - 130 mg/dL 05/04/2020 6:08 PM EDT [facility] Blood 05/04/2020 6:07 PM EDT 05/04/2020 6:08 PM EDT us Odette Grace MD POINT OF CARE TEST ORDERABLES Fi nal Result Performing Organization Address City/[facility]/ZIP Co de Phone Number [facility]
[address] [place] [address], * (ABNORMAL) Potassium (05/04/2020 1:19 PM EDT) Potassium 3.3(L) 3.5 - 5.2 mmol/L 05/04/2020 2:01 PM EDT [facility] Blood Venipuncture / Unknown 05/04/2020 1:19 PM EDT 05/04/2020 1:45 PM EDT us Celso Kim MD LAB BLOOD ORDERABLES Final Resu lt Performing Organization Address [facility]/ZIP Co de Phone Number [facility]
[address] [place] [address], * (ABNORMAL) POC Glucose Once (05/04/2020 12:38 PM EDT) Glucose 150(H) 70 - 130 mg/dL 05/04/2020 12:40 PM EDT [facility] Blood 05/04/2020 12:3 8 PM EDT 05/04/2020 12:40 PM EDT us Odette Grace MD POINT OF CARE TEST ORDERABLES Fi nal Result Performing Organization Address [facility] Co de Phone Number [facility]
[address] [place] [address], * Magnesium (05/04/2020 8:02 AM EDT) Magnesium 2.4 1.6 - 2.6 mg/dL 05/04/2020 9:33 AM EDT [facility] Blood Venipuncture / Unknown 05/04/2020 8:02 AM EDT 05/04/2020 9:04 AM EDT us Odette Grace MD LAB BLOOD ORDERABLES Final Resul t Performing Organization Address City/[facility]/ZIP Co de Phone Number [facility]
[address] [place] [address], * (ABNORMAL) CBC (No Diff) (05/04/2020 8:02 AM EDT) WBC 11.93(H) 3.40 - 10.80 10*3/mm3 05/04/2020 9:19 AM EDT [facility] RBC 2.47(L) 4.14 - 5.80 10*6/mm3 05/04/2020 9:19 AM EDT [facility] Hemoglobin 7.5(L) 13.0 - 17.7 g/dL 05/04/2020 9:19 AM EDT [facility] Hematocrit 24.2(L) 37.5 - 51.0 % 05/04/2020 9:19 AM EDT [facility] MCV 98.0(H) 79.0 - 97.0 fL 05/04/2020 9:19 AM EDT [facility] MCH 30.4 26.6 - 33.0 pg 05/04/2020 9:19 AM EDT [facility] MCHC 31.0(L) 31.5 - 35.7 g/dL 05/04/2020 9:19 AM EDT [facility] RDW 15.0 12.3 - 15.4 % 05/04/2020 9:19 AM EDT [facility] RDW-SD 52.7 37.0 - 54.0 fl 05/04/2020 9:19 AM EDT [facility] MPV 9.8 6.0 - 12.0 fL 05/04/2020 9:19 AM EDT [facility] Platelets 433 140 - 450 10*3/mm3 05/04/2020 9:19 AM EDT [facility] Blood Venipuncture / Unknown 05/04/2020 8:02 AM EDT 05/04/2020 9:05 AM EDT us Odette Grace MD LAB BLOOD ORDERABLES Final Resul t [facility]
[address] [place] [address], * (ABNORMAL) Basic Metabolic Panel (05/04/2020 8:02 AM EDT) Glucose 123(H) 65 - 99 mg/dL 05/04/2020 9:33 AM EDT [facility] BUN 67(H) 6 - 20 mg/dL 05/04/2020 9:33 AM EDT [facility] Creatinine 11.30(H) 0.76 - 1.27 mg/dL 05/04/2020 9:33 AM EDT [facility] Sodium 134(L) 136 - 145 mmol/L 05/04/2020 9:33 AM EDT [facility] Potassium 3.8 3.5 - 5.2 mmol/L 05/04/2020 9:33 AM EDT [facility] Comment:Slight hemolysis det ected by analyzer. Results may be affected. Chloride 96(L) 98 - 107 mmol/L 05/04/2020 9:33 AM EDT [facility] CO2 18.0(L) 22.0 - 29.0 mmol/L 05/04/2020 9:33 AM EDT [facility] Calcium 9.1 8.6 - 10.5 mg/dL 05/04/2020 9:33 AM EDT [facility] eGFR Amer 05/04/2020 9:33 AM EDT [facility] Comment:<15 Indicative of ki dney failure. eGFR Non Amer 5(L) >60 mL/min/1.7 3 05/04/2020 9:33 AM EDT [facility] Comment:<15 Indicative of ki dney failure. BUN/Creatinine Ratio 5.9(L) 7.0 - 25.0 05/04/2020 9:33 AM EDT [facility] Anion Gap 20.0(H) 5.0 - 15.0 mmol/L 05/04/2020 9:33 AM EDT [facility] Blood Venipuncture / Unknown 05/04/2020 8:02 AM EDT 05/04/2020 9:04 AM EDT Narrative [facility] - 05/04/2020 9:33 AM EDT GFR Normal >60 Chronic Kidney Disease <60 Kidney Failure <15 Hilton Hamm MD LAB BLOOD ORDERABLES F inal Result Performing Organization Address City/[facility]/ZIP Co de Phone Number [facility]
[address] [place] [address], * POC Glucose Once (05/04/2020 7:41 AM EDT) Glucose 118 70 - 130 mg/dL 05/04/2020 7:44 AM EDT [facility] Blood 05/04/2020 7:41 AM EDT 05/04/2020 7:44 AM EDT Odette Grace MD POINT OF CARE TEST ORDERABLES Fi nal Result Performing Organization Address [facility] Co de Phone Number [facility]
[address] [place] [address], * (ABNORMAL) Hemoglobin & Hematocrit, Blood (05/03/2020 11:39 PM EDT) Hemoglobin 7.5(L) 13.0 - 17.7 g/dL 05/04/2020 12:22 AM EDT [facility] Hematocrit 24.1(L) 37.5 - 51.0 % 05/04/2020 12:22 AM EDT [facility] Blood Venipuncture / Unknown 05/03/2020 11:39 PM EDT 05/04/2020 12:18 AM EDT us Odette Grace MD LAB BLOOD ORDERABLES Final Resul t Performing Organization Address City/[facility]/ZIP Co de Phone Number [facility]
[address] [place] [address], * (ABNORMAL) POC Glucose Once (05/03/2020 9:26 PM EDT) Glucose 176(H) 70 - 130 mg/dL 05/03/2020 9:27 PM EDT [facility] Blood 05/03/2020 9:26 PM EDT 05/03/2020 9:27 PM EDT us Odette Grace MD POINT OF CARE TEST ORDERABLES Fi nal Result Performing Organization Address [facility]/ZIP Co de Phone Number [facility]
[address] [place] [address], [place] [phone] * (ABNORMAL) POC Glucose Once (05/03/2020 4:34 PM EDT) Glucose 167(H) 70 - 130 mg/dL 05/03/2020 4:37 PM EDT [facility] Blood 05/03/2020 4:34 PM EDT 05/03/2020 4:37 PM EDT us Odette Grace MD POINT OF CARE TEST ORDERABLES Fi nal Result Performing Organization Address [facility] Co de Phone Number [facility]
[address] [place] [address], [place] [phone] * (ABNORMAL) Hemoglobin & Hematocrit, Blood (05/03/2020 4:16 PM EDT) Hemoglobin 7.9(L) 13.0 - 17.7 g/dL 05/03/2020 4:43 PM EDT [facility] Hematocrit 24.8(L) 37.5 - 51.0 % 05/03/2020 4:43 PM EDT [facility] Blood Venipuncture / Unknown 05/03/2020 4:16 PM EDT 05/03/2020 4:41 PM EDT us Odette Grace MD LAB BLOOD ORDERABLES Final Resul t Performing Organization Address [facility] Co de Phone Number [facility]
[address] [place] [address], * (ABNORMAL) POC Glucose Once (05/03/2020 11:14 AM EDT) Glucose 251(H) 70 - 130 mg/dL 05/03/2020 11:16 AM EDT [facility] Blood 05/03/2020 11:1 4 AM EDT 05/03/2020 11:16 AM EDT Odette Grace MD POINT OF CARE TEST ORDERABLES Fi nal Result Performing Organization Address [facility] Co de Phone Number [facility]
[address] [place] [address], * Antibody Identification (05/03/2020 9:56 AM EDT) Anti-C ANTI-C 05/03/2020 1:58 PM EDT [facility] Anti-D ANTI-D 05/03/2020 1:58 PM EDT [facility] Blood Venipuncture / Unknown 05/03/2020 9:56 AM EDT 05/03/2020 10:35 AM EDT Nicole Diggs APRN BLOOD BANK TEST ORDERABLES Fi nal Result Performing Organization Address [facility] Co de Phone Number [facility]
[address] [place] [address], * Type & Screen (05/03/2020 9:56 AM EDT) ABO Type O 05/03/2020 1:56 PM EDT [facility] RH type Negative 05/03/2020 1:56 PM EDT [facility] Antibody Screen Positive 05/03/2020 1:56 PM EDT [facility] T&S Expiration Date 05/06/2020 11:59:59 PM 05/03/2020 1:56 PM EDT [facility] Blood Venipuncture / Unknown 05/03/2020 9:56 AM EDT 05/03/2020 10:35 AM EDT Nicole Dontae COLIN BLOOD BANK TEST ORDERABLES Ed ited Result - Final [facility]
[address] [place] [address], * (ABNORMAL) CBC (No Diff) (05/03/2020 9:55 AM EDT) WBC 9.65 3.40 - 10.80 10*3/mm3 05/03/2020 10:46 AM EDT [facility] RBC 2.42(L) 4.14 - 5.80 10*6/mm3 05/03/2020 10:46 AM EDT [facility] Hemoglobin 7.6(L) 13.0 - 17.7 g/dL 05/03/2020 10:46 AM EDT [facility] Hematocrit 24.0(L) 37.5 - 51.0 % 05/03/2020 10:46 AM EDT [facility] MCV 99.2(H) 79.0 - 97.0 fL 05/03/2020 10:46 AM EDT [facility] MCH 31.4 26.6 - 33.0 pg 05/03/2020 10:46 AM EDT [facility] MCHC 31.7 31.5 - 35.7 g/dL 05/03/2020 10:46 AM EDT [facility] RDW 15.0 12.3 - 15.4 % 05/03/2020 10:46 AM EDT [facility] RDW-SD 53.3 37.0 - 54.0 fl 05/03/2020 10:46 AM EDT [facility] MPV 9.5 6.0 - 12.0 fL 05/03/2020 10:46 AM EDT [facility] Platelets 372 140 - 450 10*3/mm3 05/03/2020 10:46 AM EDT [facility] Blood Venipuncture / Unknown 05/03/2020 9:55 AM EDT 05/03/2020 10:41 AM EDT us Nicole Diggs APRN LAB BLOOD ORDERABLES Final Re sult Performing Organization Address City/[facility]/ZIP Co de Phone Number [facility]
[address] [place] [address], * (ABNORMAL) POC Glucose Once (05/03/2020 7:19 AM EDT) Glucose 184(H) 70 - 130 mg/dL 05/03/2020 7:21 AM EDT [facility] Blood 05/03/2020 7:19 AM EDT 05/03/2020 7:21 AM EDT Odette Grace MD POINT OF CARE TEST ORDERABLES Fi nal Result Performing Organization Address [facility] Co de Phone Number [facility]
[address] [place] [address], * ECG 12 Lead (05/03/2020 5:07 AM [...] Nicole Diggs APRN ECG ORDERABLES Final Result Performing Organization Address [facility] Co de Phone Number ECG * (ABNORMAL) POC Glucose Once (05/02/2020 8:25 PM EDT) Glucose 179(H) 70 - 130 mg/dL 05/02/2020 8:28 PM EDT [facility] Blood 05/02/2020 8:25 PM EDT 05/02/2020 8:28 PM EDT Odette Grace MD POINT OF CARE TEST ORDERABLES Fi nal Result Performing Organization Address [facility] Co de Phone Number [facility]
[address] [place] [address], [place] [phone] * (ABNORMAL) POC Glucose Once (05/02/2020 5:20 PM EDT) Glucose 208(H) 70 - 130 mg/dL 05/02/2020 5:32 PM EDT [facility] Blood 05/02/2020 5:20 PM EDT 05/02/2020 5:32 PM EDT Odette Grace MD POINT OF CARE TEST ORDERABLES Fi nal Result [facility]
[address] [place] [address], * (ABNORMAL) Occult Blood X 1, Stool - Stool, Per Rectum (05/02/2020 12:49 PM EDT) Pathologist [facility] Fecal Occult Blood Positive( A) Negative DISK DIFFUSION 05/02/2020 1:50 PM EDT [facility] Stool Specimen from rectum / Unknown Collection / Unknown 05/02/2020 12:49 PM EDT 05/02/2020 1:01 PM EDT Odette Grace MD BODY FLUIDS AND STOOLS ORDERABLE S Final Result Performing Organization Address City/[facility]/ZIP Co de Phone Number [facility]
[address] [place] [address], * Prepare RBC, 2 Units (05/02/2020 12:10 PM EDT) Pathologist [facility] Product Code [id number] [facility] Unit Number [id number] [facility] UNIT ABO O [facility] UN[facility] RH NEG [facility] Crossmatch Interpretation Compatible [facility] Dispense Status PT [facility] Blood Expiration Date [facility] Blood Type Barcode 9500 [facility] Product Code [id number] [facility] Unit [facility] [id number] [facility] UNIT ABO O [facility] UNIT NEG [facility] Crossmatch Interpretation Compatible [facility] Dispense Status PT [facility] Blood Expiration Date [facility] Blood Type Barcode 9500 [facility] Other Topography unknown / Unknown 04/30/2020 2:32 PM EDT Hilton Hamm MD BLOOD BANK PRODUCT ORD ERABLES Edited Result - Final Performing Organization Address [facility] Co de Phone Number [facility]
[address] [place] [address], * (ABNORMAL) POC Glucose Once (05/02/2020 11:52 AM EDT) Glucose 259(H) 70 - 130 mg/dL 05/02/2020 12:11 PM EDT [facility] Blood 05/02/2020 11:5 2 AM EDT 05/02/2020 12:11 PM EDT us Odette Grace MD POINT OF CARE TEST ORDERABLES Fi nal Result Performing Organization Address [facility] Co de Phone Number [facility]
[address] [place] [address], [place] [phone] * (ABNORMAL) POC Glucose Once (05/02/2020 8:10 AM EDT) Glucose 167(H) 70 - 130 mg/dL 05/02/2020 8:21 AM EDT [facility] Blood 05/02/2020 8:10 AM EDT 05/02/2020 8:21 AM EDT us Odette Grace MD POINT OF CARE TEST ORDERABLES Fi nal Result Performing Organization Address [facility] Co de Phone Number [facility]
[address] [place] [address], * (ABNORMAL) POC Glucose Once (05/01/2020 8:56 PM EDT) Glucose 239(H) 70 - 130 mg/dL 05/01/2020 9:02 PM EDT [facility] Blood 05/01/2020 8:56 PM EDT 05/01/2020 9:02 PM EDT us Odette Grace MD POINT OF CARE TEST ORDERABLES Fi nal Result Performing Organization Address [facility] Co de Phone Number [facility]
[address] [place] [address], [place] [phone] * (ABNORMAL) POC Glucose Once (05/01/2020 3:56 PM EDT) Glucose 234(H) 70 - 130 mg/dL 05/01/2020 3:58 PM EDT [facility] Blood 05/01/2020 3:56 PM EDT 05/01/2020 3:58 PM EDT us Odette Grace MD POINT OF CARE TEST ORDERABLES Fi nal Result Performing Organization Address [facility] Co de Phone Number [facility]
[address] [place] [address], [place] [phone] * (ABNORMAL) POC Glucose Once (05/01/2020 11:42 AM EDT) Glucose 177(H) 70 - 130 mg/dL 05/01/2020 11:56 AM EDT [facility] Blood 05/01/2020 11:4 2 AM EDT 05/01/2020 11:55 AM EDT us Odette Grace MD POINT OF CARE TEST ORDERABLES Fi nal Result Performing Organization Address [facility] de Phone Number [facility]
[address] [place] [address], [place] [phone] * Transfuse RBC Infuse Each Unit Over: [...] Vancomycin, Random (05/01/2020 9:07 AM EDT) Pathologist [facility] Vancomycin Random 21.60 5.00 - 40.00 mcg/mL 05/01/2020 11:16 AM EDT [facility] Blood Line / Unknown 05/01/2020 9: 07 AM EDT 05/01/2020 9:17 AM EDT Germán Resendiz [facility] LAB BLOOD ORDERABLES Final Resul t [facility]
[address] [place] [address], * (ABNORMAL) Basic Metabolic Panel (05/01/2020 9:07 AM EDT) Pathologist [facility] Glucose 195(H) 65 - 99 mg/dL 05/01/2020 9:43 AM EDT [facility] BUN 81(H) 6 - 20 mg/dL 05/01/2020 9:43 AM EDT [facility] Creatinine 10.03(H) 0.76 - 1.27 mg/dL 05/01/2020 9:43 AM EDT [facility] Sodium 134(L) 136 - 145 mmol/L 05/01/2020 9:43 AM EDT [facility] Potassium 4.1 3.5 - 5.2 mmol/L 05/01/2020 9:43 AM EDT [facility] Chloride 95(L) 98 - 107 mmol/L 05/01/2020 9:43 AM EDT [facility] CO2 20.0(L) 22.0 - 29.0 mmol/L 05/01/2020 9:43 AM EDT [facility] Calcium 8.6 8.6 - 10.5 mg/dL 05/01/2020 9:43 AM EDT [facility] eGFR Amer 05/01/2020 9:43 AM EDT [facility] Comment:<15 Indicative of ki dney failure. eGFR Non Amer 6(L) >60 mL/min/1.7 3 05/01/2020 9:43 AM EDT [facility] Comment:<15 Indicative of ki dney failure. BUN/Creatinine Ratio 8.1 7.0 - 25.0 05/01/2020 9:43 AM EDT [facility] Anion Gap 19.0(H) 5.0 - 15.0 mmol/L 05/01/2020 9:43 AM EDT [facility] Blood Line / Unknown 05/01/2020 9: 07 AM EDT 05/01/2020 9:17 AM EDT Narrative [facility] - 05/01/2020 9:43 AM EDT GFR Normal >60 Chronic Kidney Disease <60 Kidney Failure <15 us Odette Grace MD LAB BLOOD ORDERABLES Final Resul t [facility]
[address] [place] [address], * (ABNORMAL) CBC (No Diff) (05/01/2020 9:07 AM EDT) WBC 7.58 3.40 - 10.80 10*3/mm3 05/01/2020 9:25 AM EDT [facility] RBC 1.73(L) 4.14 - 5.80 10*6/mm3 05/01/2020 9:25 AM EDT [facility] Hemoglobin 5.5(LL) 13.0 - 17.7 g/dL 05/01/2020 9:25 AM EDT [facility] Hematocrit 17.2(LL) 37.5 - 51.0 % 05/01/2020 9:25 AM EDT [facility] MCV 99.4(H) 79.0 - 97.0 fL 05/01/2020 9:25 AM EDT [facility] MCH 31.8 26.6 - 33.0 pg 05/01/2020 9:25 AM EDT [facility] MCHC 32.0 31.5 - 35.7 g/dL 05/01/2020 9:25 AM EDT [facility] RDW 13.5 12.3 - 15.4 % 05/01/2020 9:25 AM EDT [facility] RDW-SD 47.9 37.0 - 54.0 fl 05/01/2020 9:25 AM EDT [facility] MPV 9.6 6.0 - 12.0 fL 05/01/2020 9:25 AM EDT [facility] Platelets 269 140 - 450 10*3/mm3 05/01/2020 9:25 AM EDT [facility] Blood Line / Unknown 05/01/2020 9: 07 AM EDT 05/01/2020 9:17 AM EDT us Odette Grace MD LAB BLOOD ORDERABLES Final Resul t [facility]
[address] [place] [address], [place] [phone] * (ABNORMAL) POC Glucose Once (05/01/2020 7:45 AM EDT) Glucose 214(H) 70 - 130 mg/dL 05/01/2020 7:47 AM EDT [facility] Blood 05/01/2020 7:45 AM EDT 05/01/2020 7:47 AM EDT us Odette Grace MD POINT OF CARE TEST ORDERABLES Fi nal Result Performing Organization Address City/[facility]/ZIP Co de Phone Number [facility]
[address] [place] [address], [place] [phone] * (ABNORMAL) POC Glucose Once (04/30/2020 8:32 PM EDT) Glucose 284(H) 70 - 130 mg/dL 04/30/2020 8:33 PM EDT [facility] Blood 04/30/2020 8:32 PM EDT 04/30/2020 8:33 PM EDT us Odette Grace MD POINT OF CARE TEST ORDERABLES Fi nal Result Performing Organization Address City/[facility]/ZIP Co de Phone Number [facility]
[address] [place] [address], * (ABNORMAL) POC Glucose Once (04/30/2020 4:19 PM EDT) Glucose 243(H) 70 - 130 mg/dL 04/30/2020 4:22 PM EDT [facility] Blood 04/30/2020 4:19 PM EDT 04/30/2020 4:22 PM EDT us Odette Grace MD POINT OF CARE TEST ORDERABLES Fi nal Result Performing Organization Address [facility] Co de Phone Number [facility]
[address] [place] [address], [place] [phone] * Antibody Identification (04/30/2020 2:26 PM EDT) Anti-C ANTI-C 04/30/2020 6:53 PM EDT [facility] Anti-D ANTI-D 04/30/2020 6:53 PM EDT [facility] Blood Venipuncture / Unknown 04/30/2020 2:26 PM EDT 04/30/2020 2:32 PM EDT us Odette Grace MD BLOOD BANK TEST ORDERABLES Final Result Performing Organization Address City/[facility]/ZIP Co de Phone Number [facility]
[address] [place] [address], [place] [phone] * Type & Screen (04/30/2020 2:26 PM EDT) ABO Type O 04/30/2020 3:24 PM EDT [facility] RH type Negative 04/30/2020 3:24 PM EDT [facility] Antibody Screen Positive 04/30/2020 3:24 PM EDT [facility] T&S Expiration Date 05/03/2020 11:59:59 PM 04/30/2020 3:24 PM EDT [facility] Blood Venipuncture / Unknown 04/30/2020 2:26 PM EDT 04/30/2020 2:32 PM EDT us Odette Grace MD BLOOD BANK TEST ORDERABLES Edite d Result - Final [facility]
[address] [place] [address], [place] [phone] * (ABNORMAL) POC Glucose Once (04/30/2020 11:16 AM EDT) Glucose 254(H) 70 - 130 mg/dL 04/30/2020 11:34 AM EDT [facility] Blood 04/30/2020 11:1 6 AM EDT 04/30/2020 11:34 AM EDT us Odette Grace MD POINT OF CARE TEST ORDERABLES Fi nal Result [facility]
[address] [place] [address], [place] [phone] * (ABNORMAL) POC Glucose Once (04/30/2020 8:19 AM EDT) Glucose 222(H) 70 - 130 mg/dL 04/30/2020 8:26 AM EDT [facility] Blood 04/30/2020 8:19 AM EDT 04/30/2020 8:26 AM EDT Odette Grace MD POINT OF CARE TEST ORDERABLES Fi nal Result Performing Organization Address [facility]/ZIP Co de Phone Number [facility]
[address] [place] [address], * ABO RH Specimen Verification (04/30/2020 7:59 AM EDT) ABO Type O 04/30/2020 3:29 PM EDT [facility] RH type Negative 04/30/2020 3:29 PM EDT [facility] Blood Venipuncture / Unknown 04/30/2020 7:59 AM EDT 04/30/2020 3:03 PM EDT Odette Grace MD BLOOD BANK TEST ORDERABLES Final Result Performing Organization Address [facility] Co de Phone Number [facility]
[address] [place] [address], * (ABNORMAL) Phosphorus (04/30/2020 7:59 AM EDT) Phosphorus 5.7(H) 2.5 - 4.5 mg/dL 04/30/2020 9:33 AM EDT [facility] Blood Venipuncture / Unknown 04/30/2020 7:59 AM EDT 04/30/2020 8:59 AM EDT Yinka Garnica MD LAB BLOOD ORDERABLES Final Result Performing Organization Address City/[facility]/ZIP Co de Phone Number [facility]
[address] [place] [address], * (ABNORMAL) CBC (No Diff) (04/30/2020 7:59 AM EDT) WBC 9.44 3.40 - 10.80 10*3/mm3 04/30/2020 9:09 AM EDT [facility] RBC 1.98(L) 4.14 - 5.80 10*6/mm3 04/30/2020 9:09 AM EDT [facility] Hemoglobin 6.3(LL) 13.0 - 17.7 g/dL 04/30/2020 9:09 AM EDT [facility] Hematocrit 19.6(LL) 37.5 - 51.0 % 04/30/2020 9:09 AM EDT [facility] MCV 99.0(H) 79.0 - 97.0 fL 04/30/2020 9:09 AM EDT [facility] MCH 31.8 26.6 - 33.0 pg 04/30/2020 9:09 AM EDT [facility] MCHC 32.1 31.5 - 35.7 g/dL 04/30/2020 9:09 AM EDT [facility] RDW 13.4 12.3 - 15.4 % 04/30/2020 9:09 AM EDT [facility] RDW-SD 47.2 37.0 - 54.0 fl 04/30/2020 9:09 AM EDT [facility] MPV 9.7 6.0 - 12.0 fL 04/30/2020 9:09 AM EDT [facility] Platelets 292 140 - 450 10*3/mm3 04/30/2020 9:09 AM EDT [facility] Blood Venipuncture / Unknown 04/30/2020 7:59 AM EDT 04/30/2020 8:59 AM EDT us Yinka Garnica MD LAB BLOOD ORDERABLES Final Result [facility]
[address] [place] [address], * (ABNORMAL) Comprehensive Metabolic Panel (04/30/2020 7:59 AM EDT) [facility] Glucose 204(H) 65 - 99 mg/dL 04/30/2020 9:33 AM [facility] BUN 64(H) 6 - 20 mg/dL 04/30/2020 9:33 AM [facility] Creatinine 7.69(H) 0.76 - 1.27 mg/dL 04/30/2020 9:33 AM [facility] Sodium 131(L) 136 - 145 mmol/L 04/30/2020 9:33 AM [facility] Potassium 4.0 3.5 - 5.2 mmol/L 04/30/2020 9:33 AM [facility] Chloride 92(L) 98 - 107 mmol/L 04/30/2020 9:33 AM [facility] CO2 22.0 22.0 - 29.0 mmol/L 04/30/2020 9:33 AM [facility] Calcium 8.9 8.6 - 10.5 mg/dL 04/30/2020 9:33 AM [facility] Total Protein 6.1 6.0 - 8.5 g/dL 04/30/2020 9:33 AM [facility] Albumin 3.30(L) 3.50 - 5.20 g/dL 04/30/2020 9:33 AM [facility] ALT (SGPT) 26 1 - 41 U/L 04/30/2020 9:33 AM [facility] AST (SGOT) 16 1 - 40 U/L 04/30/2020 9:33 AM [facility] Alkaline Phosphatase 71 39 - 117 U/L 04/30/2020 9:33 AM [facility] Total Bilirubin 0.2 0.0 - 1.2 mg/dL 04/30/2020 9:33 AM [facility] eGFR Non Amer 8(L) >60 mL/min/1.7 3 04/30/2020 9:33 AM [facility] Comment:<15 Indicative of ki dney failure. eGFR Amer 04/30/2020 9:33 AM [facility] Comment:<15 Indicative of ki dney failure. Globulin 2.8 gm/dL 04/30/2020 9:33 AM EDT [facility] A/G Ratio 1.2 g/dL 04/30/2020 9:33 AM EDT [facility] BUN/Creatinine Ratio 8.3 7.0 - 25.0 04/30/2020 9:33 AM EDT [facility] Anion Gap 17.0(H) 5.0 - 15.0 mmol/L 04/30/2020 9:33 AM EDT [facility] Blood Venipuncture / Unknown 04/30/2020 7:59 AM EDT 04/30/2020 8:59 AM EDT [facility] - 04/30/2020 9:33 AM EDT GFR Normal >60 Chronic Kidney Disease <60 Kidney Failure <15 Yinka Garnica MD LAB BLOOD ORDERABLES Final Result Performing Organization Address City/[facility] Co de Phone Number [facility]
[address] [place] [address], * (ABNORMAL) Ferritin (04/30/2020 7:59 AM EDT) [facility] Ferritin 1,539.00(H ) 30.00 - 400.00 ng/mL 04/30/2020 9:34 AM EDT [facility] Blood Venipuncture / Unknown 04/30/2020 7:59 AM EDT 04/30/2020 8:59 AM EDT [facility] LABORATORY - 04/30/2020 9:34 AM EDT Results may be falsely decreased if patient taking Biotin. Yinka Garnica MD LAB BLOOD ORDERABLES Final Result Performing Organization Address City/[facility]/ZIP Co de Phone Number [facility] LABORATORY
[address] [place] [address], * (ABNORMAL) Iron Profile (04/30/2020 7:59 AM EDT) Iron 36(L) 59 - 158 mcg/dL 04/30/2020 9:33 AM EDT [facility] Iron Saturation (TSAT) 19(L) 20 - 50 % 04/30/2020 9:33 AM EDT [facility] Transferrin 127(L) 200 - 360 mg/dL 04/30/2020 9:33 AM EDT [facility] TIBC 189(L) 298 - 536 mcg/dL 04/30/2020 9:33 AM EDT [facility] Blood Venipuncture / Unknown 04/30/2020 7:59 AM EDT 04/30/2020 8:59 AM EDT Yinka Garnica MD LAB BLOOD ORDERABLES Final Result Performing Organization Address City/[facility]/ZIP Co de Phone Number [facility] LABORATORY
[address] [place] [address], * (ABNORMAL) POC Glucose Once (04/29/2020 9:09 PM EDT) Glucose 263(H) 70 - 130 mg/dL 04/29/2020 9:10 PM EDT [facility] Blood 04/29/2020 9:09 PM EDT 04/29/2020 9:10 PM EDT Estrella Tai MD POINT OF CARE TEST ORDERABLE S Final Result [facility]
[address] [place] [address], [place] [phone] * (ABNORMAL) POC Glucose Once (04/29/2020 7:36 PM EDT) Glucose 240(H) 70 - 130 mg/dL 04/29/2020 7:38 PM EDT [facility] Blood 04/29/2020 7:36 PM EDT 04/29/2020 7:38 PM EDT us Estrella Tai MD POINT OF CARE TEST ORDERABLE S Final Result [facility]
[address] [phone], * FL C Arm During Surgery (04/29/2020 [...] saved during lumbar laminectomy. Procedure Note Elpidio Dyer, DO - 04/30/2020 EXAMINATION: FL C ARM [...] 6:[address] Elpidio Dyer. Yinka Garncia MD IMG FLUOROSCOPY ORDERABLES Final Result * AFB Culture - Tissue, Back, Lower (04/29/2020 7:15 PM EDT) AFB Culture No AFB isolated at 6 weeks 06/10/2020 8:00 PM EDT [facility] AFB Stain No acid fast bacilli seen on concentrated smear 06/10/2020 8:00 PM EDT [facility] Tissue Lower back structure / Unknown 04/29/2020 7:15 PM EDT 04/29/2020 7:51 PM EDT Yinka Garnica MD MICROBIOLOGY - GENERAL ORD ERABLES Final Result [facility]
[address] [place] [address], [place] [phone] * Tissue / Bone Culture - Tissue, Back, Lower (04/29/2020 7:15 PM EDT) Tissue Culture No growth at 3 days GREGORY 05/02/2020 8:57 AM EDT [facility] Gram Stain Rare (1+) WBCs seen 05/02/2020 8:57 AM EDT [facility] Gram Stain No organisms seen 05/02/2020 8:57 AM EDT [facility] Tissue Lower back structure / Unknown 04/29/2020 7:15 PM EDT 04/29/2020 7:51 PM EDT Yinka Garnica MD MICROBIOLOGY - GENERAL ORD ERABLES Final Result [facility]ORAT[facility]
[address] [place] [address], [place] [phone] [facility]
[address] [place] [address], * Fungus Culture - Tissue, Back, Lower (04/29/2020 7:15 PM EDT) Fungus Culture No fungus isolated at 6 weeks 06/10/2020 8:00 PM EDT [facility] Tissue Lower back structure / Unknown 04/29/2020 7:15 PM EDT 04/29/2020 7:51 PM EDT Yinka Garnica MD MICROBIOLOGY - GENERAL ORD ERABLES Final Result [facility]
[address] [place] [address], * Anaerobic Culture - Tissue, Back, Lower (04/29/2020 7:15 PM EDT) Anaerobic Culture No anaerobes isolated at 5 days 05/04/2020 8:58 AM EDT [facility] Tissue Lower back structure / Unknown 04/29/2020 7:15 PM EDT 04/29/2020 7:51 PM EDT Yinka Garnica MD MICROBIOLOGY - GENERAL ORD ERABLES Final Result [facility]
[address] [place] [address], * (ABNORMAL) Wound Culture - Wound, Spine, Lumbar (04/29/2020 6:43 PM EDT) Wound Culture Rare Staphylococcus epidermidis(A) GREGORY 06/01/2020 10:43 AM EDT [facility] Gram Stain No WBCs or organisms seen 06/01/2020 10:43 AM EDT [facility] Wound Lumbar spine structure / Unknown [...] GENERAL ORD ERABLES Edited Result - Final [facility]
[address] [place] [address], [facility]
[address] [place] [address], [place] [phone] * Anaerobic Culture - Wound, Spine, Lumbar (04/29/2020 6:43 PM EDT) Anaerobic Culture No anaerobes isolated at 5 days 05/04/2020 8:58 AM EDT [facility] Wound Lumbar spine structure / Unknown 04/29/2020 6:43 PM EDT 04/29/2020 7:59 PM EDT Yinka Garnica MD MICROBIOLOGY - GENERAL ORD ERABLES Final Result [facility]
[address] [place] [address], [place] [phone] * (ABNORMAL) Hemoglobin & Hematocrit, Blood (04/29/2020 5:46 PM EDT) Pathologist [facility] Hemoglobin 7.4(L) 13.0 - 17.7 g/dL 04/29/2020 5:47 PM EDT [facility] Hematocrit 23.0(L) 37.5 - 51.0 % 04/29/2020 5:47 PM EDT [facility] Blood Line / Unknown 04/29/2020 5: 46 PM EDT 04/29/2020 5:46 PM EDT Santy Truong MD LAB BLOOD ORDERABLES Final Re sult [facility]
[address] [place] [address], [place] [phone] * (ABNORMAL) Basic Metabolic Panel (04/29/2020 3:33 PM EDT) [facility] Glucose 127(H) 65 - 99 mg/dL 04/29/2020 4:26 PM EDT [facility] BUN 48(H) 6 - 20 mg/dL 04/29/2020 4:26 PM EDT [facility] Creatinine 5.03(H) 0.76 - 1.27 mg/dL 04/29/2020 4:26 PM EDT [facility] Sodium 132(L) 136 - 145 mmol/L 04/29/2020 4:26 PM EDT [facility] Potassium 4.2 3.5 - 5.2 mmol/L 04/29/2020 4:26 PM EDT [facility] Comment:Specimen hemolyzed. Results may be affected. Chloride 95(L) 98 - 107 mmol/L 04/29/2020 4:26 PM EDT [facility] CO2 19.0(L) 22.0 - 29.0 mmol/L 04/29/2020 4:26 PM EDT [facility] Calcium 9.0 8.6 - 10.5 mg/dL 04/29/2020 4:26 PM EDT [facility] eGFR Amer 04/29/2020 4:26 PM EDT [facility] Comment:<15 Indicative of ki dney failure. eGFR Non Amer 12(L) >60 mL/min/1.7 3 04/29/2020 4:26 PM EDT [facility] Comment:<15 Indicative of ki dney failure. BUN/Creatinine Ratio 9.5 7.0 - 25.0 04/29/2020 4:26 PM EDT [facility] Anion Gap 18.0(H) 5.0 - 15.0 mmol/L 04/29/2020 4:26 PM EDT [facility] Blood Venipuncture / Unknown 04/29/2020 3:33 PM EDT 04/29/2020 3:40 PM EDT Narrative [facility] LAB[facility] - 04/29/2020 4:26 PM EDT GFR Normal >60 Chronic Kidney Disease <60 Kidney Failure <15 Santy Truong MD LAB BLOOD ORDERABLES Final Re sult [facility]
[address] [place] [address], * (ABNORMAL) POC Glucose Once (04/29/2020 8:07 AM EDT) Glucose 213(H) 70 - 130 mg/dL 04/29/2020 8:18 AM EDT [facility] Blood 04/29/2020 8:07 AM EDT 04/29/2020 8:18 AM EDT Estrella Tai MD POINT OF CARE TEST ORDERABLE S Final Result [facility]
[address] [place] [address], * Vancomycin, Random (04/29/2020 6:18 AM EDT) Pathologist [facility] Vancomycin Random 21.50 5.00 - 40.00 mcg/mL 04/29/2020 7:04 AM EDT [facility] Blood Venipuncture / Unknown 04/29/2020 6:18 AM EDT 04/29/2020 6:34 AM EDT us Adam Colindres PharmD LAB BLOOD ORDERABLES Final Re sult [facility]
[address] [place] [address], * (ABNORMAL) Cyclosporine Level (04/29/2020 6:18 AM EDT) [facility] Cyclosporine 26(L) 100 - 400 ng/mL 05/02/2020 [...] Mass Spectrometry (LC-MS/MS) please use test code [id number]. ??For testing performed by Immunoassay, please use test code 424461. This test was developed and its performance characteristics determined by [employer]. It has not been cleared or approved by the Food and Drug Administration. Blood Venipuncture / Unknown 04/29/2020 6:18 AM EDT 04/29/2020 6:35 AM EDT Narrative [facility] - 05/02/2020 4:09 PM EDT Performed at: ??01 - [address] ??[id number] Black Puller: Jeny Pereyra MD, Phone: ??[phone] Glenn Kay MD LAB BLOOD ORDERABLES Final Resul t Performing Organization Address City/[facility]/ZIP Co de Phone Number [facility] [address] [place] [address], [place] [phone] * Magnesium (04/29/2020 6:18 AM EDT) Pathologist [facility] Magnesium 2.3 1.6 - 2.6 mg/dL 04/29/2020 7:06 AM EDT [facility] Blood Venipuncture / Unknown 04/29/2020 6:18 AM EDT 04/29/2020 6:34 AM EDT Keara Berg DO LAB BLOOD ORDERABLES Final Res ult Performing Organization Address [facility]/ZIP Co de Phone Number [facility]
[address] [place] [address], [place] [phone] * (ABNORMAL) CBC Auto Differential (04/29/2020 6:18 AM EDT) WBC 11.27(H) 3.40 - 10.80 10*3/mm3 04/29/2020 7:23 AM EDT [facility] RBC 2.42(L) 4.14 - 5.80 10*6/mm3 04/29/2020 7:23 AM EDT [facility] Hemoglobin 7.8(L) 13.0 - 17.7 g/dL 04/29/2020 7:23 AM EDT [facility] Hematocrit 23.9(L) 37.5 - 51.0 % 04/29/2020 7:23 AM [facility] MCV 98.8(H) 79.0 - 97.0 fL [facility]2020 [facility] MCH 32.2 26.6 - 33.0 pg 04/29/2020 7:23 AM [facility] MCHC 32.6 31.5 - 35.7 g/dL 04/29/2020 7:23 AM [facility] RDW 13.0 12.3 - 15.4 % 04/29/2020 7:23 AM [facility] RDW-SD 46.5 37.0 - 54.0 fl 04/29/2020 7:23 AM [facility] MPV 9.6 6.0 - 12.0 fL 04/29/2020 7:23 AM [facility] Platelets 285 140 - 450 10*3/mm3 04/29/2020 7:23 AM [facility] Neutrophil % 63.2 42.7 - 76.0 % 04/29/2020 7:23 AM [facility] Lymphocyte % 14.0(L) 19.6 - 45.3 % 04/29/2020 7:23 AM [facility] Monocyte % 14.5(H) 5.0 - 12.0 % 04/29/2020 7:23 AM [facility] Eosinophil % 2.0 0.3 - 6.2 % 04/29/2020 7:23 AM [facility] Basophil % 0.4 0.0 - 1.5 % 04/29/2020 7:23 AM [facility] Immature Grans % 5.9(H) 0.0 - 0.5 % 04/29/2020 7:23 AM [facility] Neutrophils, Absolute 7.13(H) 1.70 - 7.00 10*3/mm3 04/29/2020 7:23 AM [facility] Lymphocytes, Absolute 1.58 0.70 - 3.10 10*3/mm3 [facility]/2020 [facility] Monocytes, Absolute 1.63(H) 0.10 - 0.90 10*3/mm3 04/29/2020 7:23 AM EDT [facility] Eosinophils, Absolute 0.22 0.00 - 0.40 10*3/mm3 04/29/2020 7:23 AM EDT [facility] Basophils, Absolute 0.05 0.00 - 0.20 10*3/mm3 04/29/2020 7:23 AM EDT [facility] Immature Grans, Absolute 0.66(H) 0.00 - 0.05 10*3/mm3 04/29/2020 7:23 AM EDT [facility] nRBC 0.4(H) 0.0 - 0.2 /100 WBC 04/29/2020 7:23 AM EDT [facility] Blood Venipuncture / Unknown 04/29/2020 6:18 AM EDT 04/29/2020 6:34 AM EDT Narrative [facility] - 04/29/2020 7:23 AM EDT Appended report. These results have been appended to a previously verified report. us Keara Berg DO LAB BLOOD ORDERABLES Final Res ult [facility]
[address] [place] [address], * (ABNORMAL) Comprehensive Metabolic Panel (04/29/2020 6:18 AM EDT) Glucose 196(H) 65 - 99 mg/dL 04/29/2020 7:08 AM EDT [facility] BUN 98(H) 6 - 20 mg/dL 04/29/2020 7:08 AM EDT [facility] Creatinine 10.55(H) 0.76 - 1.27 mg/dL 04/29/2020 7:08 AM EDT [facility] Sodium 134(L) 136 - 145 mmol/L 04/29/2020 7:08 AM EDT [facility] Potassium 4.1 3.5 - 5.2 mmol/L 04/29/2020 7:08 AM [facility] Chloride 92(L) 98 - 107 mmol/L 04/29/2020 7:08 AM [facility] CO2 20.0(L) 22.0 - 29.0 mmol/L 04/29/2020 7:08 AM [facility] Calcium 9.1 8.6 - 10.5 mg/dL 04/29/2020 7:08 AM [facility] Total Protein 6.3 6.0 - 8.5 g/dL 04/29/2020 7:08 AM [facility] Albumin 3.50 3.50 - 5.20 g/dL 04/29/2020 7:08 AM [facility] ALT (SGPT) 33 1 - 41 U/L 04/29/2020 7:08 AM [facility] AST (SGOT) 17 1 - 40 U/L 04/29/2020 7:08 AM [facility] Alkaline Phosphatase 82 39 - 117 U/L 04/29/2020 7:08 AM [facility] Total Bilirubin 0.2 0.0 - 1.2 mg/dL 04/29/2020 7:08 AM [facility] eGFR Non Amer 5(L) >60 mL/min/1. 73 04/29/2020 7:08 AM [facility] Comment:<15 Indicative of ki dney failure. eGFR Amer 04/29/2020 7:08 AM [facility] Comment:<15 Indicative of ki dney failure. Globulin 2.8 gm/dL 04/29/2020 7:08 AM [facility] A/G Ratio 1.3 g/dL 04/29/2020 7:08 AM [facility] BUN/Creatinine Ratio 9.3 7.0 - 25.0 04/29/2020 7:08 AM [facility] Anion Gap 22.0(H) 5.0 - 15.0 mmol/L 04/29/2020 7:08 AM [facility] Blood Venipuncture / Unknown 04/29/2020 6:18 AM EDT 04/29/2020 6:34 AM EDT [facility] LABORATORY - 04/29/2020 7:08 AM EDT GFR Normal >60 Chronic Kidney Disease <60 Kidney Failure <15 Keara Berg DO LAB BLOOD ORDERABLES Final Res ult [facility]
[address] [place] [address], * MRSA Screen, PCR (Inpatient) - Swab, Nares (04/29/2020 1:50 AM EDT) MRSA PCR Negative Negative CEPHEID [employer] 04/29/2020 9:12 AM EDT [facility] Swab Anterior nares swab / Unknown Collection / Unknown 04/29/2020 1:50 AM EDT 04/29/2020 6:29 AM EDT [facility] LABORATORY - 04/29/2020 9:12 AM EDT MRSA Negative Keara Berg DO MICROBIOLOGY - GENERAL ORDERAB LES Final Result Performing Organization Address [facility] Co de Phone Number [facility]
[address] [place] [address], * Urinalysis, Microscopic Only - Urine, Clean Catch (04/29/2020 1:44 AM EDT) RBC, UA 0-2 None Seen, 0-2 /HPF 04/29/2020 3:16 AM EDT [facility] WBC, UA 0-2 None Seen, 0-2 /HPF 04/29/2020 3:16 AM EDT [facility] Bacteria, UA Trace None Seen, Trace /HPF 04/29/2020 3:16 AM EDT [facility] Squamous Epithelial Cells, UA 0-2 None Seen, 0-2 /HPF 04/29/2020 3:16 AM EDT [facility] Hyaline Casts, UA 0-6 0 - 6 /LPF 04/29/2020 3:16 AM EDT [facility] Methodology Manual Light Microscopy 04/29/2020 3:16 AM T [facility] Urine Urine specimen collection, clean catch / Unknown Collection / Unknown 04/29/2020 1:44 AM EDT 04/29/2020 1:53 AM EDT Keara Berg DO URINE ORDERABLES Final Result [facility]
[address] [place] [address], * (ABNORMAL) Urine Drug Screen - Urine, Clean Catch (04/29/2020 1:44 AM EDT) THC, Screen, Urine Negative Negative 2019 2:17 AM EDT [facility] Phencyclidine (PCP), Urine Negative Negative 04/29/2020 2:17 AM EDT [facility] Cocaine Screen, Urine Negative Negative 04/29/2020 2:17 AM EDT [facility] Methamphetamine, Ur Negative Negative [facility] Opiate Screen Positive(A) Negative 04/29/2020 2:17 AM EDT [facility] Amphetamine Screen, Urine Negative Negative 04/29/2020 2:17 AM EDT [facility] Benzodiazepine Screen, Urine Positive(A) Negative 04/29/2020 2:17 AM T [facility] Tricyclic Antidepressants Screen Positive(A) Negative 04/29/2020 2:17 AM EDT [facility] Methadone Screen, Urine Negative Negative 04/29/2020 2:17 AM EDT [facility] Barbiturates Screen, Urine Negative Negative 04/29/2020 2:17 AM EDT [facility] Oxycodone Screen, Urine Positive(A) Negative 04/29/2020 2:17 AM EDT [facility] Propoxyphene Screen Negative Negative 04/29/2020 2:17 AM T [facility] Buprenorphine, Screen, Urine Negative Negative 04/29/2020 2:17 AM T [facility] Urine Urine specimen collection, clean catch / Unknown Collection / Unknown 04/29/2020 1:44 AM EDT 04/29/2020 1:53 AM EDT Narrative [facility] - 04/29/2020 2:17 AM EDT Cutoff [...] when unconfirmed results are used. ?? Keara Morena DO URINE ORDERABLES Final Result [facility]
[address] [place] [address], * (ABNORMAL) Urinalysis With Microscopic If Indicated (No Culture) - Urine, Clean Catch (04/29/2020 1:44 AM EDT) Color, UA Yellow Yellow, Straw 04/29/2020 1:56 AM EDT [facility] Appearance, UA Clear Clear 04/29/2020 1:56 AM EDT [facility] pH, UA <=5.0 5.0 - 8.0 04/29/2020 1:56 AM EDT [facility] Specific [place], UA 1.017 1.001 - 1.030 04/29/2020 1:56 AM EDT [facility] Glucose, UA 100 mg/dL (Trace)(A) Negative 04/29/2020 1:56 AM EDT [facility] Ketones, UA Negative Negative 04/29/2020 1:56 AM EDT [facility] Bilirubin, UA Negative Negative 04/29/2020 1:56 AM EDT [facility] Blood, UA Negative Negative 04/29/2020 1:56 AM EDT [facility] Protein, UA >=300 mg/dL (3+)(A) Negative 04/29/2020 1:56 AM EDT [facility] Leuk Esterase, UA Negative Negative 04/29/2020 1:56 AM EDT [facility] Nitrite, UA Negative Negative 04/29/2020 1:56 AM EDT [facility] Urobilinogen, UA 0.2 E.U./dL 0.2 - 1.0 E.U./dL 04/29/2020 1:56 AM EDT [facility] Urine Urine specimen collection, clean catch / Unknown Collection / Unknown 04/29/2020 1:44 AM EDT 04/29/2020 1:53 AM EDT us Keara Berg DO URINE ORDERABLES Final Result Performing Organization Address [facility]/ZIP Co de Phone Number [facility]
[address] [place] [address], [place] [phone] * (ABNORMAL) POC Glucose Once (04/28/2020 8:51 PM EDT) Glucose 219(H) 70 - 130 mg/dL 04/28/2020 8:51 PM EDT [facility] Blood 04/28/2020 8:51 PM EDT 04/28/2020 8:51 PM EDT us Keara eBrg DO POINT OF CARE TEST ORDERABLES Final Result Performing Organization Address [facility] Co de Phone Number [facility]
[address] [place] [address], [place] [phone] * Hep B Confirmation Tube (04/28/2020 7:24 PM EDT) Extra Tube 04/29/2020 6:40 AM EDT [facility] Blood Venipuncture / Unknown 04/28/2020 7:24 PM EDT 04/28/2020 7:40 PM EDT us Keara Berg DO LAB BLOOD ORDERABLES Final Res ult Performing Organization Address City/[facility]/ZIP Co de Phone Number [facility]
[address] [place] [address], [place] [phone] * Hepatitis Panel, Acute (04/28/2020 7:24 PM EDT) Hepatitis B Surface Ag 04/28/2020 8:36 PM EDT [facility] Hep A IgM Non-Reacti ve Non-Reacti ve 04/28/2020 8:36 PM EDT [facility] Hep B C IgM Non-Reacti ve Non-Reacti ve 04/28/2020 8:36 PM EDT [facility] Hepatitis C Ab Non-Reacti ve Non-Reacti ve 04/28/2020 8:36 PM EDT [facility] Blood Venipuncture / Unknown 04/28/2020 7:24 PM EDT 04/28/2020 7:40 PM EDT [facility] LABORATORY - 04/28/2020 8:36 PM EDT Results may be falsely decreased if patient taking Biotin. Preliminary reactive result pending confirmation at [facility]. [facility] BLOOD ORDERABLES Final Res ult Performing Organization Address [facility] Co de Phone Number [facility]
[address] [place] [address], * (ABNORMAL) Troponin (04/28/2020 7:24 PM EDT) Troponin T 0.126(HH) 0.000 - 0.030 ng/mL 04/28/2020 8:26 PM EDT [facility] Blood Venipuncture / Unknown 04/28/2020 7:24 PM EDT 04/28/2020 7:40 PM EDT [facility] - 04/28/2020 8:26 PM EDT Troponin T Reference Range: <= 0.03 ng/mL- ?? Negative for AMI >0.03 ng/mL- ? Abnormal for myocardial necrosis. ??Clinicians would have to utilize clinical acumen, EKG, Troponin and serial changes to determine if it is an Acute Myocardial Infarction or myocardial injury due to an underlying chronic condition. Results may be falsely decreased if patient taking Biotin. [facility] LAB BLOOD ORDERABLES Final Res ult Performing Organization Address [facility] Co de Phone Number [facility]
[address] [place] [address], [place] [phone] * (ABNORMAL) Procalcitonin (04/28/2020 7:24 PM EDT) Procalcitonin 4.48(H) 0.00 - 0.25 ng/mL 04/28/2020 8:16 PM EDT [facility] Blood Venipuncture / Unknown 04/28/2020 7:24 PM EDT 04/28/2020 7:40 PM EDT Narrative [facility] - 04/28/2020 8:16 PM EDT As [...] Day 4 values are available. Refer to [email or web address] Change in PCT <=80 % A decrease [...] falsely decreased if patient taking Biotin. us Keara Berg DO LAB BLOOD ORDERABLES Final Res ult [facility]
[address] [place] [address], [place] [phone] * (ABNORMAL) POC Glucose Once (04/28/2020 5:23 PM EDT) [facility] Glucose 188(H) 70 - 130 mg/dL 04/28/2020 5:24 PM EDT [facility] Blood 04/28/2020 5:23 PM EDT 04/28/2020 5:24 PM EDT [facility] POINT OF CARE TEST ORDERABLES Final Result Performing Organization Address City/[facility]/ZIP Co de Phone Number [facility]
[address] [place] [address], [place] [phone] * 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, [employer]PER[employer] Swab in UTM/VTM, 3-4 HR TAT - Swab, Nasopharynx (04/28/2020 3:05 PM EDT) [facility] ADENOVIRUS, PCR Not Detected Not Detected BIOFIRE FILMARRAY 04/28/2020 4:44 PM EDT [facility] Coronavirus 229E Not Detected Not Detected BIOFIRE FILMARRAY 04/28/2020 4:44 PM EDT [facility] Coronavirus HKU1 Not Detected Not Detected BIOFIRE FILMARRAY 04/28/2020 4:44 PM EDT [facility] Coronavirus NL63 Not Detected Not Detected BIOFIRE FILMARRAY 04/28/2020 4:44 PM EDT [facility] Coronavirus OC43 Not Detected Not Detected BIOFIRE FILMARRAY 04/28/2020 4:44 PM EDT [facility] COVID19 Not Detected Not Detected - Ref. Range BIOFIRE FILMARRAY 04/28/2020 4:44 PM EDT [facility] Human Metapneumovirus Not Detected Not Detected BIOFIRE FILMARRAY 04/28/2020 4:44 PM EDT [facility] Human Rhinovirus/Enterov irus Not Detected Not Detected BIOFIRE FILMARRAY 04/28/2020 4:44 PM EDT [facility] Influenza A PCR Not Detected Not Detected BIOFIRE FILMARRAY 04/28/2020 4:44 PM EDT [facility] Influenza A H1 Not Detected Not Detected BIOFIRE FILMARRAY 04/28/2020 4:44 PM EDT [facility] Influenza A H1 2009 PCR Not Detected Not Detected BIOFIRE FILMARRAY 04/28/2020 4:44 PM EDT [facility] Influenza A H3 Not Detected Not Detected BIOFIRE FILMARRAY 04/28/2020 4:44 PM T [facility] Influenza B PCR Not Detected Not Detected BIOFIRE FILMARRAY 04/28/2020 4:44 PM EDT [facility] Parainfluenza Virus 1 Not Detected Not Detected BIOFIRE FILMARRAY 04/28/2020 4:44 PM EDT [facility] Parainfluenza Virus 2 Not Detected Not Detected BIOFIRE FILMARRAY 04/28/2020 4:44 PM EDT [facility] Parainfluenza Virus 3 Not Detected Not Detected BIOFIRE FILMARRAY 04/28/2020 4:44 PM T [facility] Parainfluenza Virus 4 Not Detected Not Detected BIOFIRE FILMARRAY 04/28/2020 4:44 PM EDT [facility] RSV, PCR Not Detected Not Detected BIOFIRE FILMARRAY 04/28/2020 4:44 PM EDT [facility] Bordetella pertussis pcr Not Detected Not Detected BIOFIRE FILMARRAY 04/28/2020 4:44 PM T [facility] Bordetella parapertussis PCR Not Detected Not Detected BIOFIRE FILMARRAY 04/28/2020 4:44 PM T [facility] Chlamydophila pneumoniae PCR Not Detected Not Detected BIOFIRE FILMARRAY 04/28/2020 4:44 PM EDT [facility] Mycoplasma pneumo by PCR Not Detected Not Detected BIOFIRE FILMARRAY 04/28/2020 4:44 PM EDT [facility] Swab Nasopharyngeal structure / Unknown Collection / Unknown 04/28/2020 3:05 PM EDT 04/28/2020 3:53 PM EDT Narrative [facility] - 04/28/2020 4:44 PM EDT Fact sheet for providers: https://docs.[employer]/wp-content/uploads/ULW3762-3759-CQ0.4-KPC-Qohjvdzs-Fa ct- eet-3.pdf Fact sheet for patients: https://docs.[employer]/wp-content/uploads/CLU3051-8563-YQ8.5-ZDL-Sergtxj-Fac t-She et-1.pdf Keara Berg DO MICROBIOLOGY - GENERAL ORDERAB LES Final Result [facility]
[address] [place] [address], * (ABNORMAL) Blood Gas, Arterial With Co-Ox (04/28/2020 11:43 AM EDT) Michael's Test N/A 04/28/2020 11:45 AM EDT [facility] pH, Arterial 7.277(L) 7.350 - 7.450 pH units 04/28/2020 11:45 AM EDT [facility] Comment:84 Value below refer ence range pCO2, Arterial 46.8(H) 35.0 - 45.0 mm Hg 04/28/2020 11:45 AM EDT [facility] Comment:83 Value above refer ence range pO2, Arterial 88.1 83.0 - 108.0 mm Hg 04/28/2020 11:45 AM EDT [facility] HCO3, Arterial 21.8 20.0 - 26.0 mmol/L 04/28/2020 11:45 AM EDT [facility] Base Excess, Arterial -4.8(L) 0.0 - 2.0 mmol/L 04/28/2020 11:45 AM [facility] Hemoglobin, Blood Gas 8.4(L) 13.5 - 17.5 g/dL 04/28/2020 11:45 AM [facility] Comment:84 Value below refer ence range Hematocrit, Blood Gas 25.7 % 04/28/2020 11:45 AM [facility] Oxyhemoglobin 94.1 94 - 99 % 04/28/2020 11:45 AM T [facility] Methemoglobin 0.80 0.00 - 1.50 % 04/28/2020 11:45 AM [facility] Carboxyhemoglobin 0.9 0 - 2 % 020 11:45 AM [facility] CO2 Content 23.2 22 - 33 mmol/L 04/28/2020 11:45 AM [facility] Temperature 37.0 C 04/28/2020 11:45 AM [facility] Barometric Pressure for Blood Gas 04/28/2020 11:45 AM [facility] Comment:N/A Modality Nasal Cannula 04/28/2020 11:45 AM [facility] FIO2 32 % 04/28/2020 11:45 AM [facility] Rate 0 Breaths/ minute 04/28/2020 11:45 AM [facility] PIP 0 cmH2O 04/28/2020 11:45 AM [facility] Comment:Meter: [id number] Printing Estimator: [id number] IPAP 0 04/28/2020 11:45 AM [facility] EPAP 0 04/28/2020 11:45 AM [facility] Note 04/28/2020 11:45 AM [facility] pH, Temp Corrected 7.277 pH Units 2019 11:45 AM [facility] pCO2, Temperature Corrected 46.8 35 - 48 mm Hg 04/28/2020 11:45 AM [facility] pO2, Temperature Corrected 88.1 83 - 108 mm Hg 04/28/2020 11:45 AM EDT [facility] Arterial Blood 04/28/2020 11 :43 AM EDT 04/28/2020 11:47 AM EDT us Keara Berg DO LAB BLOOD ORDERABLES Final Res ult [facility]ER[facility]
[address] [place] [address], [place] * MRI Lumbar Spine Without Contrast [...] on 04/29/2020 9:[address] Abbie Calrson MD. Narrative 04/29/2020 9:20 AM EDT EXAMINATION: [...] 9:[address] Abbie Carlson MD. us Kym Garcia DO IMG MRI ORDERABLES Final Result * Blood Culture - Blood, Wrist, Right (04/28/2020 7:01 AM EDT) Blood Culture No growth at 5 days 05/03/2020 8:00 AM EDT [facility] Blood Structure of right wrist region / Unknown Venipuncture / Unknown 04/28/2020 7:01 AM EDT 04/28/2020 7:49 AM EDT Kym Garcia DO MICROBIOLOGY - GENERAL O RDERABLES Final Result Performing Organization Address City/[facility]/ZIP Co de Phone Number [facility]
[address] [place] [address], * Lactic Acid, Reflex (04/28/2020 7:01 AM EDT) Lactate 1.3 0.5 - 2.0 mmol/L 04/28/2020 7:35 AM EDT [facility] Comment:Falsely depressed re sults may occur on samples drawn from patients receiving N-Acetylcysteine (NAC) or Metamizole. Blood Venipuncture / Unknown 04/28/2020 7:01 AM EDT 04/28/2020 7:10 AM EDT us Kym Garcia DO LAB BLOOD ORDERABLES Fin al Result Performing Organization Address City/[facility]/ZIP Co de Phone Number [facility]
[address] [place] [address], * Blood Culture - Blood, Arm, Right (04/28/2020 6:50 AM EDT) Blood Culture No growth at 5 days 05/03/2020 8:00 AM EDT [facility] Blood Right upper arm structure / Unknown Venipuncture / Unknown 04/28/2020 6:50 AM EDT 04/28/2020 7:50 AM EDT us Kym Mathew Garcia DO MICROBIOLOGY - GENERAL O RDERABLES Final Result [facility]
[address] [place] [address], * CT Lumbar Spine Without Contrast (04/28/2020 [...] AM Workstation Name: [facility] Narrative 04/28/2020 6:28 AM EDT INDICATION: ?? [...] AM Workstation Name: [facility] Kym Garcia DO IMG CT ORDERABLES Final [...] 6:34 AM Workstation Name: [facility] 04/28/2020 6:34 AM EDT INDICATION: ?? [...] AM Workstation Name: [facility] Kym Garcia DO IMG CT ORDERABLES Final [...] MD Signed: 04/28/2020 6:41 AM Workstation Name: [facility] 04/28/2020 6:41 AM EDT INDICATION: Post [...] MD Signed: 04/28/2020 6:41 AM Workstation Name: [facility] Kym Garcia DO IMG CT ORDERABLES Final Result * XR Chest 1 View (04/28/2020 1:52 AM EDT) Anatomical Region Laterality Modality Body N/A Radiographic Sobia ging 04/28/2020 1:58 AM EDT Impressions 04/28/2020 1:58 AM EDT No acute cardiopulmonary findings. Signer Name: Gabino Herr MD Signed: 04/28/2020 1:58 AM Workstation Name: [facility] Narrative 04/28/2020 1:58 AM EDT CR [...] MD Signed: 04/28/2020 1:58 AM Workstation Name: [facility] Kym Garcia DO IMG DIAGNOSTIC IMAGING [...] Referred By: EDMD Confirmed By:KYM GARCIA MD Kym Garcia DO ECG ORDERABLES Final Re sult Performing Organization Address [facility] de Phone Number ECG * Lactic Acid, Reflex Timer (This will reflex a repeat order 3-3:15 hours after ordered.) (04/28/202012:17 AM EDT) Hold Tube Hold for add-ons. 04/28/2020 4:00 AM EDT [facility] Comment:Auto resulted. Blood Venipuncture / Unknown 04/28/2020 12:17 AM EDT 04/28/2020 12:23 AM EDT Kym Garcia DO LAB BLOOD ORDERABLES Fin al Result Performing Organization Address [facility] de Phone Number [facility]
[address] [place] [address], * (ABNORMAL) Lactic Acid, Plasma (04/28/2020 12:17 AM EDT) Lactate 3.2(HH) 0.5 - 2.0 mmol/L 04/28/2020 12:48 AM EDT [facility] Comment:Falsely depressed re sults may occur on samples drawn from patients receiving N-Acetylcysteine (NAC) or Metamizole. Blood Venipuncture / Unknown 04/28/2020 12:17 AM EDT 04/28/2020 12:23 AM EDT Kym Garcia DO LAB BLOOD ORDERABLES Fin al Result [facility]
[address] [place] [address], * (ABNORMAL) CBC Auto Differential (04/28/2020 12:16 AM EDT) WBC 15.73(H) 3.40 - 10.80 10*3/mm3 04/28/2020 12:26 AM EDT [facility] RBC 2.91(L) 4.14 - 5.80 10*6/mm3 04/28/2020 12:26 AM EDT [facility] Hemoglobin 9.3(L) 13.0 - 17.7 g/dL 04/28/2020 12:26 AM EDT [facility] Hematocrit 27.2(L) 37.5 - 51.0 % 04/28/2020 12:26 AM EDT [facility] MCV 93.5 79.0 - 97.0 fL 04/28/2020 12:26 AM EDT [facility] MCH 32.0 26.6 - 33.0 pg 04/28/2020 12:26 AM EDT [facility] MCHC 34.2 31.5 - 35.7 g/dL 04/28/2020 12:26 AM EDT [facility] RDW 12.9 12.3 - 15.4 % 04/28/2020 12:26 AM EDT [facility] RDW-SD 43.5 37.0 - 54.0 fl 04/28/2020 12:26 AM EDT [facility] MPV 9.4 6.0 - 12.0 fL 04/28/2020 12:26 AM EDT [facility] Platelets 310 140 - 450 10*3/mm3 04/28/2020 12:26 AM EDT [facility] Neutrophil % 68.2 42.7 - 76.0 % 04/28/2020 12:26 AM EDT [facility] Lymphocyte % 13.9(L) 19.6 - 45.3 % 04/28/2020 12:26 AM EDT [facility] Monocyte % 13.4(H) 5.0 - 12.0 % 04/28/2020 12:26 AM EDT [facility] Eosinophil % 1.3 0.3 - 6.2 % 04/28/2020 12:26 AM EDT [facility] Basophil % 0.4 0.0 - 1.5 % 04/28/2020 12:26 AM EDT [facility] Immature Grans % 2.8(H) 0.0 - 0.5 % 04/28/2020 12:26 AM EDT [facility] Neutrophils, Absolute 10.74(H) 1.70 - 7.00 10*3/mm3 04/28/2020 12:26 AM EDT [facility] Lymphocytes, Absolute 2.18 0.70 - 3.10 10*3/mm3 04/28/2020 12:26 AM EDT [facility] Monocytes, Absolute 2.10(H) 0.10 - 0.90 10*3/mm3 04/28/2020 12:26 AM EDT [facility] Eosinophils, Absolute 0.21 0.00 - 0.40 10*3/mm3 04/28/2020 12:26 AM EDT [facility] Basophils, Absolute 0.06 0.00 - 0.20 10*3/mm3 04/28/2020 12:26 AM EDT [facility] Immature Grans, Absolute 0.44(H) 0.00 - 0.05 10*3/mm3 04/28/2020 12:26 AM EDT [facility] nRBC 0.1 0.0 - 0.2 /100 WBC 04/28/2020 12:26 AM T [facility] Blood Venipuncture / Unknown 04/28/2020 12:16 AM EDT 04/28/2020 12:23 AM EDT us Kym Garcia DO LAB BLOOD ORDERABLES Fin al Result [facility]
[address] [place] [address], [place] [phone] * Gold Top - SST (04/28/2020 12:16 AM EDT) Extra Tube Hold for add-ons. 04/28/2020 1:30 AM EDT [facility] Comment:Auto resulted. Blood Venipuncture / Unknown 04/28/2020 12:16 AM EDT 04/28/2020 12:23 AM EDT us Kym Garcia DO LAB BLOOD ORDER ONLY Fin al Result Performing Organization Address City/[facility]/ZIP Co de Phone Number [facility]
[address] [place] [address], [place] [phone] * Lavender Top (04/28/2020 12:16 AM EDT) Extra Tube hold for add-on 04/28/2020 1:30 AM EDT [facility] Comment:Auto resulted Blood Venipuncture / Unknown 04/28/2020 12:16 AM EDT 04/28/2020 12:23 AM EDT us Kym Garcia DO LAB BLOOD ORDER ONLY Fin al Result Performing Organization Address City/[facility] Co de Phone Number [facility]
[address] [place] [address], [place] [phone] * Green Top (Gel) (04/28/2020 12:16 AM EDT) Extra Tube Hold for add-ons. 04/28/2020 1:30 AM EDT [facility] Comment:Auto resulted. Blood Venipuncture / Unknown 04/28/2020 12:16 AM EDT 04/28/2020 12:23 AM EDT us Kym Garcia DO LAB BLOOD ORDER ONLY Fin al Result Performing Organization Address City/[facility]/ZIP Co de Phone Number [facility]
[address] [place] [address], * Light Blue Top (04/28/2020 12:16 AM EDT) Pathologist [facility] Extra Tube hold for add-on 04/28/2020 1:30 AM EDT [facility] Comment:Auto resulted Blood Venipuncture / Unknown 04/28/2020 12:16 AM EDT 04/28/2020 12:23 AM EDT Kym Carmona Melina DO LAB BLOOD ORDER ONLY Fin al Result [facility]
[address] [place] [address], * Magnesium (04/28/2020 12:16 AM EDT) [facility] Magnesium 2.4 1.6 - 2.6 mg/dL 04/28/2020 12:45 AM EDT [facility] Blood Venipuncture / Unknown 04/28/2020 12:16 AM EDT 04/28/2020 12:23 AM EDT Kym Garcia DO LAB BLOOD ORDERABLES Fin al Result [facility]
[address] [place] [address], * (ABNORMAL) Troponin (04/28/2020 12:16 AM EDT) Pathologist [facility] Troponin T 0.154(HH) 0.000 - 0.030 ng/mL 04/28/2020 12:48 AM EDT [facility] Blood Venipuncture / Unknown 04/28/2020 12:16 AM EDT 04/28/2020 12:23 AM EDT Narrative [facility] - 04/28/2020 12:48 AM EDT Troponin [...] DO LAB BLOOD ORDERABLES Fin al Result [facility]
[address] [place] [address], * (ABNORMAL) Comprehensive Metabolic Panel (04/28/2020 12:16 AM EDT) Glucose 285(H) 65 - 99 mg/dL 04/28/2020 12:45 AM EDT [facility] BUN 109(H) 6 - 20 mg/dL 04/28/2020 12:45 AM EDT [facility] Creatinine 14.39(H) 0.76 - 1.27 mg/dL 04/28/2020 12:45 AM EDT [facility] Sodium 129(L) 136 - 145 mmol/L 04/28/2020 12:45 AM EDT [facility] Potassium 4.3 3.5 - 5.2 mmol/L 04/28/2020 12:45 AM EDT [facility] Chloride 80(L) 98 - 107 mmol/L 04/28/2020 12:45 AM EDT [facility] CO2 19.0(L) 22.0 - 29.0 mmol/L 04/28/2020 12:45 AM EDT [facility] Calcium 9.3 8.6 - 10.5 mg/dL 04/28/2020 12:45 AM EDT [facility] Total Protein 7.1 6.0 - 8.5 g/dL 04/28/2020 12:45 AM EDT [facility] Albumin 3.60 3.50 - 5.20 g/dL 04/28/2020 12:45 AM EDT [facility] ALT (SGPT) 48(H) 1 - 41 U/L 04/28/2020 12:45 AM EDT [facility] AST (SGOT) 24 1 - 40 U/L 04/28/2020 12:45 AM EDT [facility] Alkaline Phosphatase 105 39 - 117 U/L 04/28/2020 12:45 AM EDT [facility] Total Bilirubin 0.3 0.0 - 1.2 mg/dL 04/28/2020 12:45 AM EDT [facility] eGFR Non Amer 4(L) >60 mL/min/1. 73 04/28/2020 12:45 AM EDT [facility] Comment:<15 Indicative of ki dney failure. eGFR Amer 04/28/2020 12:45 AM EDT [facility] Comment:<15 Indicative of ki dney failure. Globulin 3.5 gm/dL 04/28/2020 12:45 AM EDT [facility] A/G Ratio 1.0 g/dL 04/28/2020 12:45 AM EDT [facility] BUN/Creatinine Ratio 7.6 7.0 - 25.0 04/28/2020 12:45 AM EDT [facility] Anion Gap 30.0(H) 5.0 - 15.0 mmol/L 04/28/2020 12:45 AM EDT [facility] Blood Venipuncture / Unknown 04/28/2020 12:16 AM EDT 04/28/2020 12:23 AM EDT Narrative [facility] - 04/28/2020 12:45 AM EDT GFR Normal >60 Chronic Kidney Disease <60 Kidney Failure <15 Kym Garcia DO LAB BLOOD ORDERABLES Fin al Result [facility]
[address] [place] [address], * SCANNED - TELEMETRY (04/28/2020) Anatomical Region Laterality Modality Other [facility] Onbase ECG ORDERABLES Final Result * SCANNED - TELEMETRY (04/28/2020) Anatomical Region Laterality Modality Other Result [facility] Onbase ECG ORDERABLES Final Result * SCANNED - TELEMETRY (04/28/2020) Anatomical Region Laterality Modality Other Result [facility] Onbase ECG ORDERABLES Final Result * SCANNED - TELEMETRY (04/28/2020) Anatomical Region Laterality Modality Other Result [facility] Onbase ECG ORDERABLES Final Result * SCANNED - TELEMETRY (04/28/2020) Anatomical Region Laterality Modality Other Result [facility] Onbase ECG ORDERABLES Final Result * SCANNED - TELEMETRY (04/28/2020) Anatomical Region Laterality Modality Other Result [facility] Onbase ECG ORDERABLES Final Result documented in [...] Daily, First dose on Mon05/12/20 at 1730 bupivacaine (PF) (MARCAINE) 0.25 % injection As Needed, Starting on Mon04/29/20 at 1800 Given 04/29/2020 6:00 PM EDT 20 mL Back carBAMazepine (TEGretol) tablet 200 mg 200 mg, [...] {BKC} Avoid grapefruit juice. Avoid use with Optima's Wort products. Given 05/13/2020 10:50 AM EDT [...] Given 05/11/2020 4:29 PM EDT 10 mg floseal injection As Needed, Starting on Mon04/29/20 at 1811 Given 04/29/2020 5:50 PM EDT 10 mL Back glucagon (human recombinant) (GLUCAGEN DIAGNOSTIC) injection 1 [...] minutes Given 05/06/2020 9:52 PM EDT 10 m g lidocaine-EPINEPHrine (XYLOCAINE W/EPI) 0.5 %-[id number] injection As Needed, Starting on Mon04/29/20 at 1750 Given 04/29/2020 5:53 PM EDT 5 0 mL Back lisinopril (PRINIVIL,ZESTRIL) tablet 40 mg 40 mg, [...] Given 05/12/2020 4:48 PM EDT 100 mg mineral oil As Needed, Starting on Mon04/29/20 at 1814 Given 04/29/2020 6:14 PM EDT 1 application Back mycophenolate (CELLCEPT) capsule 250 mg 250 mg, [...] 4:08 PM EDT 9 mL/hr 9 mL/hr sodium chloride 5 mL with gelatin absorbable 1 each, thrombin 5,000 Units mixture As Needed, Starting on Mon04/29/20 at 1750 Given 04/29/2020 5:53 PM EDT 5 mL Ba ck sodium chloride 500 mL with bacitracin 50,000 Units, polymyxin B 500,000 Units irrigation As Needed, Starting on Mon04/29/20 at 1753 Given 04/29/2020 5:53 PM EDT 500 mL Ba ck sterile water irrigation solution As Needed, Starting on Mon04/29/20 at 1757 Given 04/29/2020 5:53 PM EDT 1,000 mL terazosin (HYTRIN) capsule 5 mg 5 mg, [...] refused) 1204 (Not Given - Provider: Sylvain Cadet, JANA - Reason: Patient/family refused) carBAMazepine (TEGretol) tablet [...] {BKC} Avoid grapefruit juice. Avoid use with Optima's Wort products. 1632 (Given - Provider: Khushi Blood RN)2008 (Given - Provider: Aydin Keller RN) 0950 (Given - Provider: Karli Carroll RN)2250 (Given - Provider: Aydin Keller RN) 1050 (Given - Provider: Sylvain Cadet, JANA) docusate sodium (COLACE) capsule 100 mg 100 mg, Oral, 2 Times Daily, First dose on Mon04/28/20 at 1132, Swallow whole. Do not open, crush, or chew capsule. 1853 (Canceled Entry - Provider: Karli Carroll RN)2006 (Given - Provider: Aydin Keller RN) 0951 (Given - Provider: Karli Carroll RN)2246 (Given - Provider: Aydin Keller RN) 1049 (Given - Provider: Sylvain Cadet, RN) doxycycline (MONODOX) capsule 100 mg 100 mg, [...] RN) 0951 (Given - Provider: Karli Carroll RN)2248 (Given - Provider: Aydin Keller RN) 1049 (Given - Provider: Sylvain Cadet, JANA) entecavir [...] RN)1854 (Canceled Entry - Provider: Karli Carroll RN)2007 (Given - Provider: Aydin Keller RN) 0951 (Given - Provider: Karli Carroll RN)1648 (Given - Provider: Karli Carroll RN)2248 (Given - Provider: Aydin Keller RN) 1048 (Given - Provider: Sylvain Cadet, JANA)1600 (Due) insulin detemir (LEVEMIR) injection 15 Units 15 Units, Subcutaneous, Nightly, First dose on Mon05/01/20 at 2100, {BKC} 2017 (Given - Provider: Aydin Keller RN) 225 (Given - Provider: Aydin Keller RN) insulin [...] Carroll RN - Reason: Order parameters not met)182 (Canceled Entry - Provider: Karli Carroll RN)185 (Canceled Entry - Provider: Karli Carroll RN) [...] 1049 (Given - Provider: Sylvain Cadet, JANA) metoprolol tartrate (LOPRESSOR) tablet 100 mg 100 mg, Oral, Every 8 Hours Scheduled, First dose (after last modification) on Mon05/04/20 at 1400 0600 (Due)1631 (Given - Provider: Khushi Blood RN)2002 (Given - Provider: Aydin Keller RN)2200 (Canceled Entry - Provider: Aydin Keller RN) 0514 (Given - Provider: Aydin Keller RN)1648 (Given - Provider: Karli Carroll RN)2246 (Given - Provider: Aydin Keller RN) 1049 (Given - Provider: Sylvain Cadet RN)1550 (Not Given - Provider: Karli Carroll [...] 2012 (Given - Provider: Aydin Keller RN) 2245 (Given - Provider: Aydin Keller RN) NIFEdipine XL (PROCARDIA XL) 24 hr tablet 90 mg 90 mg, Oral, 2 Times Daily, First dose on Mon04/28/20 at 2100, Caution: Look alike/sound alike drug alert. Avoid grapefruit juice. 1628 (Given - Provider: Khushi Blood RN)2004 (Given - Provider: Aydin Keller RN) 0951 (Given - Provider: Karli Carroll RN)2246 (Given - Provider: Aydin Keller RN) 1049 (Given - Provider: Sylvain aCdet, JANA) polyethylene glycol (MIRALAX) packet 17 g [...] Keller RN - Comment: no IV access) 1052 (Canceled Entry - Provider: Sylvain Cadet RN) sodium chloride 0.9 % flush 3 mL 3 mL, Intravenous, Every 12 Hours Scheduled, First dose on Mon04/29/20 at 2130 1854 (Canceled Entry - Provider: Karli Carroll RN)2025 (Not Given - Provider: Aydin Keller RN - Reason: Loss of IV access) 0953 (Not Given - Provider: Karli Carroll RN - Reason: Order parameters not met)2311 (Canceled Entry - Provider: Aydin Keller RN - Comment: no IV access) 1052 (Canceled Entry - Provider: Sylvain Cadet, JANA) [...] 1048 (New Bag - Provider: Sylvain Cadet, RN) PRN Medication Order 05/11/2020 05/12/2020 05/13/2020 acetaminophen [...] 5-8 2358 (Given - Provider: Aydin Keller, JANA) 0952 (Given - Provider: Karli Carroll RN)2127 (Given - Provider: Aydin Keller, JANA) 1128 (Given - Provider: Sylvain Cadet, JANA) [...] documented as of this encounter Care Teams Consumer Science Teacher Relationship Specialty Start Date End Date Edgar Fournier MD [address] [place], [place] [address] PCP - General Family Medicine 04/27/20 documented as of this encounter
--- OUTSIDE RECORDS SUMMARY | 2024-07-12 12:20 | XMS_ITS | Encounter Summary ---
Author Organization [facility] Init iatives Address [address] [place] [address] Care Team Providers Care Chisel Mortiser Operator Name Role Phone Edgar Fournier MD Primary Care Provider Encounter Details Date Type Department Care Team (Latest Contact Info) Description 06/28/2024 Travel Social History Tobacco Use Types Packs/Day Years Used Date Smoking Tobacco: Never Smokeless Tobacco: Never Alcohol Use Standard Drinks/Week Comments Not Currently 0 (1 standard drink = 0.6 oz pur e alcohol) Utilities Answer Date Recorded In the past 12 months, has t he electric, gas, oil, or water company threatened to shut off services in your home? No 06/28/2024 Interpersonal Safety Answer Date Record ed How often does anyone, claudette roberts family and friends, physically hurt you? Never 06/28/2024 How often does anyone, claudette roberts family and friends, insult or talk down to you? Never 06/28/2024 How often does anyone, claudette roberts family and friends, threaten you with harm? Never 06/28/2024 How often does anyone, claudette roberts family and friends, scream or curse at you? Never 06/28/2024 Housing Stability Answer Date Recorded What is your living situation today? [place] a [place] place [place] live 06/28/[address] you li ve. Do you have problems with any of the following? None of the above 06/28/2024 Food Insecurity Answer Date Recorded Within the past 12 months, y ou worried that your food would run out before you got money to buy more. Never true 06/28/2024 Within the past 12 months, t he food you bought just didn't last and you didn't have money to get more. Never true 06/28/2024 Transportation Needs Answer Date Record ed In the past 12 months, has l ack of reliable transportation kept you from medical appointments, meetings, work or from getting things needed for daily living? No 06/28/2024 Financial Resource Strain Answer Date R ecorded How hard is it for you to pa y for the very basics like food, housing, medical care, and heating? Would you say it is: Not hard at all 06/28/2024 Employment Answer Date Recorded Do you want help finding or keeping work or a job? I do not need or want help 06/28/2024 Family and Community Support Answer Gilbert e Recorded If for any reason you need h elp with day-to-day activities such as bathing, preparing meals, shopping, managing finances, etc., do you get the help you need? I get all the help I need 06/28/2024 Feeling Lonely or Isolated 0 06/28 Educational Attainment Answer Date Jorge rded Do you speak a language other than [place] at [facility]? No 06/28/2024 Do you want help with school or training? For example, starting or completing job training or getting a high school diploma, GED or equivalent. No 06/28/2024 Physical Activity Answer Date Recorded Number of minutes of exercise per week 0 06/28/2024 Alcohol Use Answer Date Recorded 5 or More Drinks Per Day Past 12 Months 0 06/27/2024 Depression Answer Date Recorded Calculation of above two rows 0 Stress Answer Date Recorded Stress means a situation in which a person feels tense, restless, nervous, or anxious, or is unable to sleep at night because his or her mind is troubled all the time. Do you feel this kind of stress these days? A little bit 06/28/2024 Disabilities Answer Date Recorded Because of a physical, menta l, or emotional condition, do you have serious difficulty concentrating, remembering, or making decisions? (5 years or older) No 06/28/2024 Because of a physical, menta l, or emotional condition, do you have difficulty doing errands alone such as visiting a doctor's office or shopping? (15 years or older) No 06/28/2024 Substance Use Answer Date Recorded How many times in the past y ear have you used prescription drugs for non-medical reasons? Never 06/28/2024 How many times in the past year have you used [place] legal drugs? Never 06/28/2024 Sex and Gender Information Value Date Recorded Sex Assigned at Male 02/08/2022 8:44 PM CDT Legal Sex Male 8:44 PM CDT Gender Identity Male 02/08/2022 8:44 PM CDT Sexual Orientation Not on file documented as of this encounter Plan of Treatment Not on file documented as of this encounter Visit Diagnoses Not on filedocumented in this encounter Care Teams Chisel Mortiser Operator Relationship Specialty Start Date End Date Edgar Fournier MD [address] [place] [id number] PCP - General Family Medicine 06/27/24 documented as of this encounter
--- OUTSIDE RECORDS SUMMARY | 2024-07-12 12:20 | XMS_ITS | Clinical Summary ---
Author Organization [employer] Address [address] [place] [address] Care Team Providers Care Clinical Nurse Leader Name Role Phone Edgar Fournier MD Primary Care Provider [phone] Allergies Active Allergy Reactions Criticality Noted Date Comments Tacrolimus Other (See Comments) High 03/02/2021 Anxious feeling and muscle jerking. TOLERATED ENVARSUS BETTER THAN PROGRAF. Medications testosterone cypionate (DEPOTESTOTERONE CYPIONATE) 200 mg/mL injection Inject 1 mL (200 mg total) intramuscularly every 28 days. 024 Active pantoprazole (PROTONIX) 40 MG tablet Take 1 tablet (40 mg total) by mouth 2 (two) times daily before meals Can take up to 3 tablets/day as directed. Active NIFEdipine (ADALAT CC) 90 MG 24 hr tablet Take 1 tablet (90 mg total) by mouth 2 (two) times daily. Active mycophenolate (CELLCEPT) 250 mg capsule Take 1 capsule (250 mg total) by mouth 2 (two) times daily. 024 Active montelukast (SINGULAIR) 10 mg tablet Take 1 tablet (10 mg total) by mouth nightly. Active insulin aspart U-100 (NovoLOG Flexpen U-100 Insulin) 100 unit/mL (3 mL) inpn Inject 5 Units subcutaneously 3 (three) times daily before meals. 024 Active folic acid (FOLVITE) 1 MG tablet Take 1 tablet (1 mg total) by mouth daily. Active ALPRAZolam (XANAX) 0.5 MG tablet Take 1 tablet (0.5 mg total) by mouth daily as needed for anxiety. 023 Active aspirin 81 MG chewable tablet Take 1 tablet (81 mg total) by mouth daily. Active calcium carbonate (Tums) 500 mg chewable tablet Take 2 tablets (1,000 mg total) by mouth 3 (three) times daily with meals. 024 Active carvediloL (COREG) 25 MG tablet Take 1 tablet (25 mg total) by mouth 2 (two) times daily. Active ergocalciferol (ERGOCALCIFEROL) 1,250 mcg (50,000 unit) capsule Take 1 capsule (50,000 Units total) by mouth 3 (three) times a week MON/MON/FRI. 024 Active entecavir (BARACLUDE) 0.5 MG tablet Take 1 tablet (0.5 mg total) by mouth once a week. Active tenapanor (Xphozah) 30 mg tab Take 1 tablet by mouth 2 (two) times daily. Active carBAMazepine (TEGretol) 200 mg tablet Take 1 tablet (200 mg total) by mouth 2 (two) times daily. Active doxazosin (CARDURA) 8 MG tablet Take 1 tablet (8 mg total) by mouth nightly. Active fenofibrate micronized (LOFIBRA) 134 MG capsule Take 1 capsule (134 mg total) by mouth every morning before breakfast. Active fexofenadine (FRANCOIS) 180 MG tablet Take 1 tablet (180 mg total) by mouth daily. Active gabapentin (NEURONTIN) 800 MG tablet Take 1 tablet (800 mg total) by mouth 2 (two) times daily. Max Daily Amount: 1,600 mg Active hydrALAZINE (APRESOLINE) 100 MG tablet Take 1 tablet (100 mg total) by mouth 3 (three) times daily. Active icosapent ethyL (Vascepa) 1 gram cap capsule Take 2 capsules (2 g total) by mouth 2 (two) times daily with breakfast and dinner. Active paricalcitoL (ZEMPLAR) 2 MCG capsule Take 1 capsule (2 mcg total) by mouth daily. Active cinacalcet (SENSIPAR) 60 MG tablet Take 3 tablets (180 mg total) by mouth daily with dinner. Active calcitRIOL (ROCALTROL) 0.25 MCG capsule Take 1 capsule (0.25 mcg total) by mouth daily. Active cycloSPORINE modified (GENGRAF) 25 MG capsule Take 4 capsules (100 mg total) by mouth in the morning. Active cycloSPORINE modified (GENGRAF) 25 MG capsule Take 5 capsules (125 mg total) by mouth nightly. Active polyethylene glycol (GLYCOLAX) 17 gram packet Take 17 g by mouth daily as needed (for Constipation). Active insulin NPH isoph U-100 human (HumuLIN N NPH Insulin KwikPen) 100 unit/mL (3 mL) inpn Inject 40 Units subcutaneously daily with breakfast. Active tenapanor (Xphozah) 20 mg tab Take 30 mg by mouth. 2023 Discontinued Lokelma 10 gram pwpk Take 1 packet (10 g total) by mouth. 2023 Discontinued promethazine (PHENERGAN) 25 MG tablet Take 1 tablet (25 mg total) by mouth. 2023 Discontinued ondansetron (ZOFRAN-ODT) 8 MG disintegrating tablet Take 1 tablet (8 mg total) by mouth 3 (three) times daily. 2023 Discontinued ofloxacin (FLOXIN) 0.3 % otic solution SMARTSIG:In Ear(s) 2023 Discontinued naloxone (NARCAN) 4 mg/actuation spry 1 spray by intraNASAL route. 2023 Discontinued methocarbamoL (ROBAXIN) 500 MG tablet Take 1 tablet (500 mg total) by mouth. 2023 Discontinued HumuLIN N NPH Insulin KwikPen 100 unit/mL (3 mL) inpn Inject subcutaneously. 2023 Discontinued Vascepa 1 gram capsule Take 2 capsules (2 g total) by mouth 2 (two) times daily. 2023 Discontinued gabapentin (NEURONTIN) 300 MG capsule Take by mouth. 2023 Discontinued fenofibrate (LIPOFEN) 50 mg capsule Take 50 mg by mouth. 2023 Discontinued NY-M8-L4-B3-B6-B 12-C-Zn 1 mg-1.5 mg- 1.7 mg-50 mg tab 2023 Discontinued doxazosin (CARDURA XL) 8 MG 24 hr tablet 2023 Discontinued cycloSPORINE (SandIMMUNE) 25 MG capsule Take by mouth. 024 2023 Discontinued Active Problems Problem Noted Date Diagnosed Date Pulmonary HTN 05/14/2024 Overview (05/14/2024): Last Assessment & Plan: Hasnt been transmitting [employer] - will work with [employer] to trouble shoot - aim to drive pressures down Pain 05/14/2024 Hyperkalemia 05/07/2024 AVF (arteriovenous fistula) 08/11/2023 Gastroesophageal reflux disease 07/18/2023 Obesity, Class III, BMI 40-49.9 (morbid obesity) 11/08/2021 Overview (05/14/2024): Lifestyle modification including weight loss was discussed again during this encounter. History of liver transplant 04/28/2020 Overview (05/14/2024): Active follow-up at [place], [place] Hyperlipidemia 04/13/2020 Type 2 diabetes mellitus wit h diabetic chronic kidney disease 09/26/2019 Overview (05/14/2024): Last Assessment & Plan: Glucose well controlled yesterday. Received 1 unit of correction. PLAN: ?? Continue insulin glargine 10 units subcutaneous QHS ?? Continue insulin lispro 6 units subcutaneous QAC ?? Continue insulin lispro correction 0-5 units subcutaneous QAC per low-dose scale ?? Fingersticks QAC/QHS Last Assessment & Plan: Glucose well controlled yesterday. Received 1 unit of correction. PLAN: ?? Continue insulin glargine 10 units subcutaneous QHS ?? Continue insulin lispro 6 units subcutaneous QAC ?? Continue insulin lispro correction 0-5 units subcutaneous QAC per low-dose scale ?? Fingersticks QAC/QHS Esophageal varices without bleeding 08/25/2019 Obstructive sleep apnea syndrome 08/14/2019 Overview (05/14/2024): Last Assessment & Plan: His home unit is here, but seems to be configured incorrectly. He is using hospital unit. PLAN: ?? CPAP overnight Last Assessment & Plan: His home unit is here, but seems to be configured incorrectly. He is using hospital unit. PLAN: ?? CPAP overnight Last Assessment & Plan: His home unit is here, but seems to be configured incorrectly. He is using hospital unit. PLAN: ?? CPAP overnight Severe JC and nocturnal hypoxemia. Unable to tolerate AutoPap, CPAP, auto BiPAP. He did well on BiPAP during previous hospitalization at and during recent titration at [facility]. ESRD (end stage renal disease) on dialysis 09/13 Overview (05/14/2024): Last Assessment & Plan: Tolerated dialysis well yesterday. PLAN: ?? Continue dialysis Last Assessment & Plan: Tolerated dialysis well yesterday. PLAN: ?? Continue dialysis Last Assessment & Plan: Tolerated dialysis well yesterday. PLAN: ?? Continue dialysis Last Assessment & Plan: Tolerated dialysis well yesterday. PLAN: ?? Continue dialysis Active follow-up at Benign prostatic hyperplasia 03/20/2018 Overview (05/14/2024): Benign prostatic hyperplasia Nonalcoholic steatohepatitis (SAL) 04/28/2016 Overview (05/14/2024): Nonalcoholic steatohepatitis (SAL) Essential (primary) hypertension 02/03/2016 Overview (05/14/2024): Last Assessment & Plan: Increase coreg to 50mg bid Encounters Date Type Department Care Team Description 06/28/2024 Travel 06/27/2024 11:05 PM EST - 06/30/2024 2:05 PM EST Hospital Encounter [facility] Cardiothoracic Vascular Unit [address] [phone] Jay Strickland MD Ma, Yuchen, MD Discharge Disposition: Home or Self Care 05/14/2024 3:06 PM EDT - 05/16/2024 7:51 PM EDT Hospital Encounter [facility] Cardiac Telemetry [address] [phone] Marilu Arceo DO Khan, Imran, MD Hyperkalemia (Primary Dx); Metabolic acidosis; Complication associated with dialysis catheter Discharge Disposition: Left Against Medical Advice 05/14/2024 Travel 05/07/2024 10:55 AM EDT - 05/07/2024 5:50 PM EDT Hospital Encounter [facility] Short Stay Unit [address] [phone] Man Sky MD Kredan, Tawfik, MD Absher, Dale R, MD End stage renal disease (HCC) Discharge Disposition: Home or Self Care 05/07/2024 Travel 05/01/2024 9:06 AM EDT - 05/01/2024 11:59 PM EDT Hospital Encounter [facility] Interventional Radiology Lab [address] [place] [phone] Man Sky MD Jayavarapu, Ravi, MD End stage renal disease (HCC); Hemodialysis catheter dysfunction (HCC); Failure of hemodialysis access (HCC); Dependence on hemodialysis (HCC) Discharge Disposition: Home or Self Care 05/01/2024 Travel from Last 3 Months Social History Tobacco Use Types Packs/Day Years Used Date Smoking Tobacco: Never Smokeless Tobacco: Never Tobacco Cessation:Counseling Given: Not Answered Alcohol Use Standard Drinks/Week Comments Not Currently [...] your living situation today? I have a [facility] place to live 06/28/2024 Think about the [...] Do you speak a language other than Pashto at [facility]? No 06/28/2024 Do you want help with [...] PM CDT Sexual Orientation Not on file Last Filed Vital Signs Vital Sign Reading Time Taken Comments Blood Pressure 139/70 06/30/2024 1:13 PM EST Pulse 97 06/30/2024 1:13 PM EST Temperature 36.8 ??C (98.2 ??F) 06/30/2024 1 2:09 PM EST Respiratory Rate 18 06/30/2024 1:17 PM EST Oxygen Saturation 90% 06/30/2024 1:17 PM EST Inhaled Oxygen Concentration - - Weight 140.2 kg (309 lb 1.4 oz) 06/28/2024 7:00 AM EST Height 175.3 cm (5' 9 ) 05/14/2024 2:49 PM EDT Body Mass Index 45.64 05/14/2024 2:49 PM EDT Plan of Treatment Health Maintenance Due Date Last Done Comments CT Colonography 1974 Colonoscopy 1974 Colorectal Cancer Screening 1974 FOBT/FIT 1974 Fit-DNA (Cologuard) 1974 Sigmoidoscopy 1974 Diabetic Eye Exam 02/26/1984 Diabetic foot exam 02/26/1984 Depression Screening (12+) 1986 HIV Screening 1989 DTAP/TDAP/TD VACCINES (1 - Tdap) 1993 Shingles Vaccine (Zoster) (1 of 2) 1993 Lipid Panel 2009 Pneumococcal Vaccine: 0-64 Y ears (3 of 3 - PCV) 08/08/2018 08/08/2017, 01/05/2016 COVID-19 VACCINE (3 - Moderna risk series) 10/26/2021 09/28/2021, 08/17/2021 Medicare IPPE (Welcome to Medicare) G0402 08/14/2023 Influenza Vaccine (#1) 2024 Hemoglobin A1C 05/14/2024 Tobacco Cessation Counseling and Screening (12+) 05/14/2025 05/14/2024 Hepatitis C Screening Completed 05/15/2024, 024 Procedures Procedure Name Priority Date/Time Associated Diagnosis Comments NOVA GLUCOSE POC Routine 06/30/2024 12:0 5 PM EST COMPREHENSIVE METABOLIC PANEL Routine 06/30/2024 5:15 AM EST NOVA GLUCOSE POC Routine 06/30/2024 5:13 AM EST COMPREHENSIVE METABOLIC PANEL Routine 06/30/2024 1:12 AM EST COMPREHENSIVE METABOLIC PANEL Routine 06/29/2024 8:56 PM EST NOVA GLUCOSE POC Routine 06/29/2024 8:42 PM EST MAGNESIUM Add-On 06/29/2024 12:21 PM EST PHOSPHORUS Add-On 06/29/2024 12:21 PM EST COMPREHENSIVE METABOLIC PANEL Routine 06/29/2024 12:21 PM EST NOVA GLUCOSE POC Routine 06/29/2024 12:1 8 PM EST COMPREHENSIVE METABOLIC PANEL Routine 06/29/2024 6:26 AM EST NOVA GLUCOSE POC Routine 06/29/2024 6:25 AM EST COMPREHENSIVE METABOLIC PANEL Routine 06/28/2024 11:34 PM EST COMPREHENSIVE METABOLIC PANEL Routine 06/28/2024 7:10 PM EST IR CENTRAL VENOUS Routine 06/28/2024 4:5 8 PM EST LACTIC ACID WITH REFLEX Routine 06/28/2024 10:19 AM EST PHOSPHORUS Routine 06/28/2024 10:19 AM EST MAGNESIUM Routine 06/28/2024 10:19 AM EST CBC W/ AUTO DIFF Routine 06/28/2024 10:1 9 AM EST COMPREHENSIVE METABOLIC PANEL Routine 06/28/2024 10:19 AM EST NOVA GLUCOSE POC Routine 06/28/2024 6:41 AM EST XR CHEST AP PORTABLE Routine 06/28/2024 4:18 AM EST BLOOD GAS, ARTERIAL Routine 06/28/2024 3 :49 AM EST BLOOD GAS, ARTERIAL STAT 06/28/2024 1 2:07 AM EST XR CHEST AP PORTABLE STAT 06/27/2024 11:58 PM EST MAGNESIUM STAT 06/27/2024 11:54 PM EST PHOSPHORUS STAT 06/27/2024 11:54 PM EST COMPREHENSIVE METABOLIC PANEL STAT 06/27/2024 11:54 PM EST PROTHROMBIN TIME/INR STAT 05/16/2024 6:17 PM EDT CBC HEMOGRAM (SJ-BKR) STAT 05/16/2024 6:17 PM EDT NOVA GLUCOSE POC Routine 05/16/2024 4:22 PM EDT IR TUNNELED DIALYSIS CATHETER EXCHANGE Routine 05/16/2024 4:03 PM EDT NOVA GLUCOSE POC Routine 05/16/2024 11:1 7 AM EDT NOVA GLUCOSE POC Routine 05/16/2024 5:10 AM EDT NOVA GLUCOSE POC Routine 05/15/2024 8:50 PM EDT NOVA GLUCOSE POC Routine 05/15/2024 3:50 PM EDT BASIC METABOLIC PANEL STAT 05/15/2024 6:23 AM EDT CBC HEMOGRAM (SJ-BKR) STAT 05/15/2024 6:23 AM EDT HEPATITIS PANEL, ACUTE STAT 05/15/2024 6:23 AM EDT NOVA GLUCOSE POC Routine 05/15/2024 5:50 AM EDT IR CENTRAL VENOUS STAT 05/14/2024 5:2 7 PM EDT MAGNESIUM STAT 05/14/2024 3:38 PM EDT LIPASE STAT 05/14/2024 3:38 PM EDT COMPREHENSIVE METABOLIC PANEL STAT 05/14/2024 3:38 PM EDT CBC W/ AUTO DIFF STAT 05/14/2024 3:38 PM EDT IR CENTRAL VENOUS Routine 05/07/2024 1:2 6 PM EDT End stage renal disease (HCC) HEPATITIS PANEL, ACUTE STAT 05/07/2024 11:28 AM EDT FS_SJH_MODEL_HEMODIAL YSIS INPATIENT Routine 05/07/2024 11:11 AM EDT POCT-POTASSIUM Routine 05/07/2024 10:07 AM EDT POCT-POTASSIUM Routine 05/07/2024 9:52 AM EDT ISTAT GLUCOSE POC Routine 05/07/2024 9:5 2 AM EDT IR CENTRAL VENOUS Routine 05/01/2024 10: 59 AM EDT End stage renal disease (HCC) Hemodialysis catheter dysfunction (HCC) Failure of hemodialysis access (HCC) Dependence on hemodialysis (HCC) ISTAT GLUCOSE POC Routine 05/01/2024 9:3 4 AM EDT POCT-POTASSIUM Routine 05/01/2024 9:34 AM EDT from Last 3 Months Results * (ABNORMAL) Glucose, Nova Meter (06/30/2024 12:05 PM EST) Only the most recent of12 resultswithin the time period is included. [facility] POC-GLUCOSE 128(H) 70 - 110 mg/dL 06/30/2024 12:07 PM EST [facility] Comment:In the event of poor peripheral blood flow, venous or arterial blood should be used due to the potential of erroneous results. Outbound Sales Agent [phone] 06/30/2024 12:07 PM [facility] Blood WHOLE BLOOD / Unknown 06/30/2024 12:05 PM EST 06/30/2024 12:07 PM EST Narrative [facility] - 06/30/2024 12:07 PM EST Outbound Sales Agent ID is - [id number] Huyen Levi MD POINT OF CARE TEST ORDERABLES Fi nal Result [facility] [address] [phone] * (ABNORMAL) Comprehensive metabolic panel (06/30/2024 5:15 AM EST) Only the most recent of10 resultswithin the time period is included. Sodium 132(L) 136 - 146 meq/L 06/30/2024 6:10 AM [facility] Potassium 4.3 3.5 - 5.1 meq/L 06/30/2024 6:10 AM [facility] Chloride 103 102 - 112 meq/L 06/30/2024 6:10 AM [facility] CO2 21 21 - 32 meq/L 06/30/2024 6:10 AM [facility] Calcium 8.1(L) 8.4 - 10.1 mg/dL 06/30/2024 6:10 AM [facility] Glucose 100 74 - 106 mg/dL 06/30/2024 6:10 AM [facility] BUN 49(H) 7 - 22 mg/dL 06/30/2024 6:10 AM [facility] Creatinine 9.56(H) 0.70 - 1.30 mg/dL 06/30/2024 6:10 AM [facility] BUN/Creatinine 5(L) 8 - 20 06/30/2024 6:10 AM [facility] Albumin 3.2(L) 3.4 - 5.0 g/dL 06/30/2024 6:10 AM [facility] Alkaline Phosphatase 190(H) 27 - 136 U/L 06/30/2024 6:10 AM [facility] ALT 7(L) 16 - 61 U/L 06/30/2024 6:10 AM [facility] AST 14 5 - 37 U/L 06/30/2024 6:10 AM [facility] Total Bilirubin 0.5 0.2 - 1.2 mg/dL 06/30/2024 6:10 AM [facility] Protein, Total 7.0 6.4 - 8.2 gm/dL 06/30/2024 6:10 AM [facility] Anion Gap 12 9 - 20 06/30/2024 6:10 AM [facility] A/G Ratio 0.8(L) 1.1 - 2.5 06/30/2024 6:10 AM [facility] Globulin 3.8 1.5 - 4.5 g/dL 06/30/2024 6:10 AM [facility] Osmolality Calc 277.6 6:10 AM [facility] eGFR (mL/min/1.73m2) 6(L) >=60 mL/min/1.7 3m2 06/30/2024 6:10 AM [facility] Comment:ESTIMATED GFR IS NOT ACCURATE CREATININE CLEARANCE IN PREDICTING GLOMERULAR FILTRATION RATE. ESTIMATED GFR IS NOT APPLICABLE FOR DIALYSIS PATIENTS. Blood Venipuncture / Unknown 06/30/2024 5:15 AM EST 06/30/2024 5:19 AM EST us Mandi Kearney PA-C LAB BLOOD ORDERABLES Final Resul t [facility] [address] [phone] * (ABNORMAL) Phosphorus (06/29/2024 12:21 PM EST) Only the most recent of3 resultswithin the time period is included. Phosphorus 10.1(H) 2.5 - 4.9 mg/dL 06/29/2024 4:19 PM [facility] Blood VENOUS LINE / Unknown Venipuncture / Unknown 06/29/2024 12:21 PM EST 06/29/2024 12:28 PM EST Karishma Hodge MD LAB BLOOD ORDERABLES Final Resu lt Performing Organization Address City/[facility]/ZIP Co de Phone Number [facility] [address] [phone] * Magnesium (06/29/2024 12:21 PM EST) Only the most recent of4 resultswithin the time period is included. Magnesium 1.7 1.5 - 2.4 mg/dL 06/29/2024 4:19 PM EST [facility] Blood VENOUS LINE / Unknown Venipuncture / Unknown 06/29/2024 12:21 PM EST 06/29/2024 12:28 PM EST Karishma Hodge MD LAB BLOOD ORDERABLES Final Resu lt Performing Organization Address City/[facility]/ZIP Co de Phone Number [facility] [address] [phone] * IR CENTRAL VENOUS (06/28/2024 4:58 PM EST) Only the most recent of4 resultswithin the time period is included. Anatomical Region Laterality Modality Interventional R adiology 06/28/2024 6:04 PM EST Impressions 06/29/2024 7:29 AM EST 1. Successful replacement of new tunneled left jugular dialysis catheter. 2. Central venography shows fibrin sleeve within the left innominate vein and SVC. 3. Balloon angioplasty performed of the fibrin sleeve with successful disruption. 4. Fluoroscopic guidance utilized with images acquired. 5. IV conscious sedation used. Narrative 06/29/2024 7:29 AM EST COMPLETE REPLACEMENT TUNNELED CATHETER, SVC angiogram and angioplasty. CLINICAL HISTORY: Poorly functioning poorly functioning catheter. Renal failure. Vascular access needed for dialysis. Conscious sedation: 0.5 mg of IV Versed and 25 mcg of fentanyl were administered. Continuous vital sign monitoring was used. Nursing staff was present during the sedation process. Overall sedation time was 30 minutes. The patient also received prophylactic antibiotics during the procedure. Radiation exposure index, DAP: ??272.47 Gy cm^2 All elements of maximum sterile barrier technique were utilized including cap, mask, sterile gown, sterile gloves, a large sterile sheet, hand hygiene, and 2% chlorhexidine (or acceptable alternative) for cutaneous antisepsis. Technique: The exposed catheter and adjacent skin was prepped and a routine sterile fashion. Local anesthesia was achieved with 1% lidocaine. Manual traction and blunt dissection were used to remove existing catheter. Guidewire access was preserved after removal of catheter. ?? An 8-Italian sheath was then placed in the left innominate vein. SVC angiography was performed. Guidewire was passed into the IVC. Angiogram shows filling defect of the left innominate vein and SVC presumably due to large fibrin sleeve retained after catheter removal. Balloon angioplasty was performed of the fibrin sleeve with a 12 mm balloon. A repeat angiogram after balloon angioplasty showed the fibrin sleeve to no longer be apparent. Fluoroscopic guidance was used for venous access with images acquired. A 32 cm Duraflow catheter was placed with tip positioned at the atrial-SVC junction. Both lumens flushed well and aspirated without resistance. Catheter was secured to the skin with 2-0 nylon suture. Procedure was well tolerated. Procedure Note Carlos Eduardo Jimenez MD - 06/29/2024 COMPLETE REPLACEMENT TUNNELED CATHETER, SVC angiogram and angioplasty. CLINICAL HISTORY: Poorly functioning poorly functioning catheter. Renal failure. Vascular access needed for dialysis. Conscious sedation: 0.5 mg of IV Versed and 25 mcg of fentanyl were administered. Continuous vital sign monitoring was used. Nursing staff was present during the sedation process. Overall sedation time was 30 minutes. The patient also received prophylactic antibiotics during the procedure. Radiation exposure index, DAP: 272.47 Gy cm^2 All elements of maximum sterile barrier technique were utilized including cap, mask, sterile gown, sterile gloves, a large sterile sheet, hand hygiene, and 2% chlorhexidine (or acceptable alternative) for cutaneous antisepsis. Technique: The exposed catheter and adjacent skin was prepped and a routine sterile fashion. Local anesthesia was achieved with 1% lidocaine. Manual traction and blunt dissection were used to remove existing catheter. Guidewire access was preserved after removal of catheter. An 8-Italian sheath was then placed in the left innominate vein. SVC angiography was performed. Guidewire was passed into the IVC. Angiogram shows filling defect of the left innominate vein and SVC presumably due to large fibrin sleeve retained after catheter removal. Balloon angioplasty was performed of the fibrin sleeve with a 12 mm balloon. A repeat angiogram after balloon angioplasty showed the fibrin sleeve to no longer be apparent. Fluoroscopic guidance was used for venous access with images acquired. A 32 cm Duraflow catheter was placed with tip positioned at the atrial-SVC junction. Both lumens flushed well and aspirated without resistance. Catheter was secured to the skin with 2-0 nylon suture. Procedure was well tolerated. IMPRESSION: 1. Successful replacement of new tunneled left jugular dialysis catheter. 2. Central venography shows fibrin sleeve within the left innominate vein and SVC. 3. Balloon angioplasty performed of the fibrin sleeve with successful disruption. 4. Fluoroscopic guidance utilized with images acquired. 5. IV conscious sedation used. Humble Blankenship MD [facility] IR ORDERABLES Final Result * (ABNORMAL) CBC with automated diff (06/28/2024 10:19 AM EST) Only the most recent of2 resultswithin the time period is included. WBC 7.5 4.2 - 9.1 K/??L 06/28/2024 12:28 PM [facility] RBC 3.11(L) 4.63 - 6.08 M/??L 06/28/2024 12:28 PM [facility] Hemoglobin 10.1(L) 13.7 - 17.5 GM/DL 06/28/2024 12:28 PM [facility] Hematocrit 32.3(L) 40.1 - 51.0 % 06/28/2024 12:28 PM [facility] MCV 104(H) 79 - 92 fL 06/28/2024 12:28 PM [facility] MCH 32.5(H) 25.7 - 32.2 pg 06/28/2024 12:28 PM [facility] MCHC 31.3(L) 32.3 - 36.5 GM/DL 06/28/2024 12:28 PM [facility] RDW 15.6(H) 11.6 - 14.4 % 06/28/2024 12:28 PM [facility] Platelets 232 140 - 375 K/CU MM 06/28/2024 12:28 PM [facility] MPV 9.7 9.4 - 12.4 fL 06/28/2024 12:28 PM [facility] % Neutros 70(H) 34 - 68 % 06/28/2024 12:28 PM [facility] % Lymphs 16(L) 22 - 53 % 06/28/2024 12:28 PM [facility] % Monos 5 5 - 12 % 06/28/2024 12:28 PM [facility] % Eos 2 1 - 7 % 06/28/2024 12:28 PM [facility] % Baso 0 0 - 1 % 06/28/2024 12:28 PM [facility] NRBC Absolute 0.03(H) 0 - 0.012 K/ul 06/28/2024 12:28 PM [facility] LABORATORY # Neutros 5.26 1.78 - 5.38 K/??L 06/28/2024 12:28 PM [facility] # Lymphs 1.21(L) 1.32 - 3.57 K/??L 06/28/2024 12:28 PM [facility] # Monos 0.40 0.30 - 0.82 K/??L 06/28/2024 12:28 PM [facility] # Eos 0.14 0.04 - 0.54 K/??L 06/28/2024 12:28 PM [facility] # Baso 0.03 0.01 - 0.08 K/??L 06/28/2024 12:28 PM [facility] Immature Granulocytes-Re lative 6.50(H) 0.01 - 0.43 % 06/28/2024 12:28 PM [facility] # IG 0.49(H) 0.00 - 0.03 K/uL 06/28/2024 12:28 PM [facility] Blood Venipuncture / Unknown 06/28/2024 10:19 AM EST 06/28/2024 10:19 AM EST Narrative [facility] - 06/28/2024 12:28 PM EST When CBC w/ Auto Diff is ordered the lab will add a Manual Differential as a quality check at no additional charge if: Lymphocytes greater than seventy five percent with normal or increased WBC Monocytes greater than Fifteen percent Basophil greater than four percent Bands >10% or several immature myeloids are seen on scan Blast? Flag noted Atypical Lymph flag noted us Mandi Kearney PA-C LAB BLOOD ORDERABLES Final Resul t Performing Organization Address [facility] Co de Phone Number [facility] [address] [phone] * (ABNORMAL) Lactic Acid with reflex (SJ) (06/28/2024 10:19 AM EST) Lactic Acid Level (mmol/L) 0.3(L) 0.4 - 2.0 mmol/L 06/28/2024 10:40 AM EST [facility] Comment:If a Lactic Acid Lev el with Reflex if Indicated result is greater than 2.0, a Lactic Acid Level will be ordered to be collected 2 hours after the original collection time. Blood Venipuncture / Unknown 06/28/2024 10:19 AM EST 06/28/2024 10:19 AM EST us Mandi Kearney PA-C LAB BLOOD ORDERABLES Final Resul t Performing Organization Address [facility] Co de Phone Number [facility] [address] [phone] * XR chest AP portable (06/28/2024 4:18 AM EST) Only the most recent of2 resultswithin the time period is included. Anatomical Region Laterality Modality Chest X-Ray 06/28/2024 8:05 AM EST Impressions 06/28/2024 8:46 AM EST Findings suggestive of mild congestive heart failure. Images reviewed, interpreted, and dictated by Dr. Carlos Eduardo Jimenez. Transcribed by Valentin Davis PA-C Narrative 06/28/2024 8:46 AM EST PORTABLE CHEST ?06/28/2024 4:18 AM HISTORY: Acute shortness of breath. COMPARISON: June 27, 2024. FINDINGS: The heart is ??normal in size . ??The mediastinum is unremarkable . There is increasing pulmonary vascular congestion. There is no significant pleural effusion. ??There is no pneumothorax . Left-sided dialysis catheter is unchanged. Procedure Note Carlos Eduardo Jimenez MD - 06/28/2024 PORTABLE CHEST 06/28/2024 4:18 AM HISTORY: Acute shortness of breath. COMPARISON: June 27, 2024. FINDINGS: The heart is normal in size . The mediastinum is unremarkable . There is increasing pulmonary vascular congestion. There is no significant pleural effusion. There is no pneumothorax . Left-sided dialysis catheter is unchanged. IMPRESSION: Findings suggestive of mild congestive heart failure. Images reviewed, interpreted, and dictated by Dr. Carlos Eduardo Jimenez. Transcribed by Valentin Davis PA-C Mandi Kearney PA-C IM DIAGNOSTIC IMAGING ORDERABLE S Final Result * (ABNORMAL) Blood gas, arterial (06/28/2024 3:49 AM EST) Only the most recent of2 resultswithin the time period is included. pH, Arterial 7.11(LL) 7.35 - 7.45 06/28/2024 3:52 AM [facility] pCO2, Arterial 42 35 - 45 mm Hg 06/28/2024 3:52 AM [facility] pO2, Arterial 104(H) 80 - 100 mm Hg 06/28/2024 3:52 AM [facility] HCO3, Arterial 13(L) 20 - 26 mmol/L 06/28/2024 3:52 AM [facility] Base Excess, Arterial -15.7(L) -2.0 - 2.0 mmol/L 06/28/2024 3:52 AM [facility] O2 Sat, Arterial 96.0 95.0 - 100.0 % 06/28/2024 3:52 AM [facility] CTO2 ARTERIAL 13.9 mmol/L 06/28/2024 3:52 AM [facility] THB ARTERIAL 10.4(L) 12.0 - 18.0 g/dL 06/28/2024 3:52 AM [facility] COLLECTION SITE Right Radial 06/28/2024 3:52 AM [facility] Arterial Puncture Yes 06/28/2024 3:52 AM [facility] Blood Gas O2 Delivery Device Cannula 06/28/2024 3:52 AM [facility] Oxygen Flow Rate 2 06/28/20 3:52 AM [facility] Blood Gas PT Temperature C 37.0 06/28/2024 3:52 AM [facility] Michael's Test Acceptable 06/28/2024 3:52 AM [facility] Critical Values Notification Critical Blood gas called to JANA MATSON NOTIFIED . Results acknowledged/r ead back to [id number] and confirmed on 06/28/2024 03:51 06/28/2024 3:52 AM [facility] ABG Number of Draw Attempts 1 06/28/2024 3:52 AM [facility] FIO2 06/28/2024 3:52 AM [facility] Blood Gas Temperature Corrected Results No No 06/28/2024 3:52 AM [facility] Blood, Arterial ENTIRE RIGHT UPPER ARM / Unknown 06/28/2024 3:49 AM EST 06/28/2024 3:52 AM EST us Mandi Kearney PA-C LAB BLOOD ORDERABLES Final Resul t Performing Organization Address City/State/[facility] Co de Phone Number [facility] [address] [phone] * (ABNORMAL) CBC - Hemogram (SJ-BKR) (05/16/2024 6:17 PM EDT) Only the most recent of2 resultswithin the time period is included. WBC 4.5 4.2 - 9.1 K/??L 05/16/2024 6:33 PM EDT [facility] RBC 3.18(L) 4.63 - 6.08 M/??L 05/16/2024 6:33 PM EDT [facility] Hemoglobin 10.3(L) 13.7 - 17.5 GM/DL 05/16/2024 6:33 PM EDT [facility] Hematocrit 31.6(L) 40.1 - 51.0 % 05/16/2024 6:33 PM EDT [facility] MCV 99(H) 79 - 92 fL 05/16/2024 6:33 PM EDT [facility] MCH 32.4(H) 25.7 - 32.2 pg 05/16/2024 6:33 PM EDT [facility] MCHC 32.6 32.3 - 36.5 GM/DL 05/16/2024 6:33 PM EDT [facility] RDW 15.0(H) 11.6 - 14.4 % 05/16/2024 6:33 PM EDT [facility] Platelets 231 140 - 375 K/CU MM 05/16/2024 6:33 PM EDT [facility] MPV 9.6 9.4 - 12.4 fL 05/16/2024 6:33 PM EDT [facility] Blood Venipuncture / Unknown 05/16/2024 6:17 PM EDT 05/16/2024 6:29 PM EDT Narrative [facility] - 05/16/2024 6:33 PM EDT Note: reference ranges were changed on 09/12/2023. Jay Strickland MD LAB BLOOD ORDERABLES Final Resul t [facility] [address] [phone] * Prothrombin time/INR (05/16/2024 6:17 PM EDT) Protime 11.8 9.0 - 12.0 seconds 05/16/2024 6:49 PM EDT [facility] INR 1.08 0.80 - 1.10 05/16/2024 6:49 PM EDT [facility] Comment: Recommended therapeutic ranges using International Normalized Ratio (INR) are: INR RANGE 2.0 - 3.0 ? Routine oral anticoagulant therapy 2.5 - 3.5 ? Oral anticoagulant therapy for patients with thromboembolic events on standard doses of Coumadin and those with mechanical heart valves. Blood Venipuncture / Unknown 05/16/2024 6:17 PM EDT 05/16/2024 6:29 PM EDT us Jay Strickland MD LAB BLOOD ORDERABLES Final Resul t [facility] [address] [phone] * IR TUNNELED DIALYSIS CATHETER EXCHANGE (05/16/2024 4:03 PM EDT) Anatomical Region Laterality Modality Interventional R adiology 05/16/2024 5:18 PM EDT Impressions 05/16/2024 5:20 PM EDT Successful disruption of the fibrin sheath near the tunnel dialysis catheter tip. Successful exchange of left chest wall internal jugular approach tunneled hemodialysis catheter. Line ready to use. Critical results: No COMMUNICATION: Per this written report. Images personally reviewed, interpreted and dictated by CLARK Brown. Narrative 05/16/2024 5:20 PM EDT PROCEDURE: TUNNELED CATHETER EXCHANGE 1. Fluoroscopic guided exchange of tunneled central venous catheter for hemodialysis. 2. Moderate conscious sedation. 3. Pre and post central venogram through the existing catheter with disruption of fibrin sheath through balloon angioplasty. CLINICAL INDICATION: 49-year-old male with recurrent non functioning tunneled hemodialysis catheter, presented for exchange of hemodialysis catheter. cold work operator: CLARK Brown Medications: IV Conscious sedation was utilized for this procedure using 2 mg of Versed, and 100 mcg of Fentanyl. ??Additionally, 1% Lidocaine was used for skin and deep subcutaneous local anesthetic. Continuous cardiopulmonary/physiologic activity was monitored by highly qualified health senior care manager/nurse during the the entire procedure. IV hydralazine 20 mg. Fluoroscopy Time: ??3.8 minutes Radiation exposure in reference to Air-Kerma: 487 mGy. Dose Area Product (DAP): 66824 micoGray/m2. Number of Images: 9 images. Antibiotic: Ancef 3 g IV once. Duration of conscious sedation: 15 minutes. COMPLICATIONS: No immediate ?? TECHNIQUE: After discussion of risks and benefits, informed written consent was obtained. Appropriate time out was done to confirm patient identity, planned procedure, and side. ??The patient was placed supine on the fluoro table. ??The existing tunneled hemodialysis catheter as well as the surrounding skin was prepped and draped in the usual sterile manner. Strict hand hygiene protocol was observed. ??All personnel in the room were attired in surgical hat and mask. ??The operators were in surgical hat, mask, sterile gloves, and gowns. ??The operative site was prepped with 2% chlorhexidine for cutaneous antisepsis followed by sterile barrier draping. Conscious sedation was initiated. Local anesthetic was administered. Able to aspirate and flush through the blue hub of the catheter. Unable to aspirate but able to flush through the red hub of the catheter. The distal subtraction catheter central venogram was performed, which showed a fibrin sheath. ??The existing tunneled hemodialysis catheter was pulled back slightly releasing the cuff with gentle traction. A advantage guidewire were advanced through the existing tunneled hemodialysis catheter into the IVC. The existing catheter was removed over the wire while applying the pressure near the neck. ??Over the wire 7 Italian sheath was placed into the left brachiocephalic vein. Balloon angioplasty was performed for disruption of the fibular sheath utilizing 12 mm x 40 mm [place] balloon at multiple stations and subsequently with 14 x 40 mm balloon with good result. The balloon was removed. The sheath was removed. New tunneled hemodialysis catheter was advanced over the wire with tip positioned within the proximal right atrium. The wire was removed. The new tunneled hemodialysis catheter was secured to the skin with 2-0 Ethilon suture. Chlorhexidine dressing was applied. Each lumen of the catheter was checked for adequate flow. Repeat catheter central venogram was performed, which showed free flow of contrast without evidence of fibrin sheath. Each lumen was then flushed with heparinized saline. The patient tolerated the procedure well. There were no immediate complications. Patient was transferred back to recovery in stable condition. COMPARISON: None. FINDINGS: Malfunctioning existing tunneled dialysis catheter, difficult to aspirate and flush. Central venogram showed recurrent fibrin sheath. Successful disruption of the fibrin sheath utilizing 14 mm balloon. Device: 15.5 Fr x 32 cm Duraflow catheter. CardioMEMS device noted. Procedure Note Conner Ruvalcaba MD - 05/16/2024 PROCEDURE: TUNNELED CATHETER EXCHANGE 1. Fluoroscopic guided exchange of tunneled central venous catheter for hemodialysis. 2. Moderate conscious sedation. 3. Pre and post central venogram through the existing catheter with disruption of fibrin sheath through balloon angioplasty. CLINICAL INDICATION: 49-year-old male with recurrent non functioning tunneled hemodialysis catheter, presented for exchange of hemodialysis catheter. cold work operator: CLARK Brown Medications: IV Conscious sedation was utilized for this procedure using 2 mg of Versed, and 100 mcg of Fentanyl. Additionally, 1% Lidocaine was used for skin and deep subcutaneous local anesthetic. Continuous cardiopulmonary/physiologic activity was monitored by highly qualified health senior care manager/nurse during the the entire procedure. IV hydralazine 20 mg. Fluoroscopy Time: 3.8 minutes Radiation exposure in reference to Air-Kerma: 487 mGy. Dose Area Product (DAP): 03635 micoGray/m2. Number of Images: 9 images. Antibiotic: Ancef 3 g IV once. Duration of conscious sedation: 15 minutes. COMPLICATIONS: No immediate TECHNIQUE: After discussion of risks and benefits, informed written consent was obtained. Appropriate time out was done to confirm patient identity, planned procedure, and side. The patient was placed supine on the fluoro table. The existing tunneled hemodialysis catheter as well as the surrounding skin was prepped and draped in the usual sterile manner. Strict hand hygiene protocol was observed. All personnel in the room were attired in surgical hat and mask. The operators were in surgical hat, mask, sterile gloves, and gowns. The operative site was prepped with 2% chlorhexidine for cutaneous antisepsis followed by sterile barrier draping. Conscious sedation was initiated. Local anesthetic was administered. Able to aspirate and flush through the blue hub of the catheter. Unable to aspirate but able to flush through the red hub of the catheter. The distal subtraction catheter central venogram was performed, which showed a fibrin sheath. The existing tunneled hemodialysis catheter was pulled back slightly releasing the cuff with gentle traction. A advantage guidewire were advanced through the existing tunneled hemodialysis catheter into the IVC. The existing catheter was removed over the wire while applying the pressure near the neck. Over the wire 7 Italian sheath was placed into the left brachiocephalic vein. Balloon angioplasty was performed for disruption of the fibular sheath utilizing 12 mm x 40 mm [place] balloon at multiple stations and subsequently with 14 x 40 mm balloon with good result. The balloon was removed. The sheath was removed. New tunneled hemodialysis catheter was advanced over the wire with tip positioned within the proximal right atrium. The wire was removed. The new tunneled hemodialysis catheter was secured to the skin with 2-0 Ethilon suture. Chlorhexidine dressing was applied. Each lumen of the catheter was checked for adequate flow. Repeat catheter central venogram was performed, which showed free flow of contrast without evidence of fibrin sheath. Each lumen was then flushed with heparinized saline. The patient tolerated the procedure well. There were no immediate complications. Patient was transferred back to recovery in stable condition. COMPARISON: None. FINDINGS: Malfunctioning existing tunneled dialysis catheter, difficult to aspirate and flush. Central venogram showed recurrent fibrin sheath. Successful disruption of the fibrin sheath utilizing 14 mm balloon. Device: 15.5 Fr x 32 cm Duraflow catheter. CardioMEMS device noted. IMPRESSION: Successful disruption of the fibrin sheath near the tunnel dialysis catheter tip. Successful exchange of left chest wall internal jugular approach tunneled hemodialysis catheter. Line ready to use. Critical results: No COMMUNICATION: Per this written report. Images personally reviewed, interpreted and dictated by CLARK Brown. us Mark Edwards MD IMG IR ORDERABLES Final Resul t * Hepatitis panel, acute (05/15/2024 6:23 AM EDT) Only the most recent of2 resultswithin the time period is included. Hep A IgM Nonreactive Nonreactive, Equivocal 05/15/2024 7:49 AM EDT [facility] Hep B C IgM Nonreactive Nonreactive 05/15/2024 7:49 AM EDT [facility] Hepatitis B surface antigen Nonreactive Nonreactive, Equivocal 05/15/2024 7:49 AM EDT [facility] Hepatitis C Ab Nonreactive Nonreactive, Equivocal 05/15/2024 7:49 AM EDT [facility] Blood Venipuncture / Unknown 05/15/2024 6:23 AM EDT 05/15/2024 6:30 AM EDT [facility] - 05/15/2024 7:49 AM EDT Hepatitis A Antibody IgM: (a) A negative test result does not exclude the possibility of exposure ??to the hepatitis A virus. (b) This test can be used to determine if a patient has or recently had an acute or asymptomatic hepatitis A infection. (c) A reactive result does not exclude co-infection by another hepatitis virus. Biotin supplements can cause clinically significant incorrect lab results. The FDA has seen an increase in the number of adverse events related to biotin interference with lab tests. Hepatitis B Core Antibody IgM: A reactive anti-HBc IgM result does not exclude co-infection by another hepatitis virus. Biotin supplements can cause clinically significant incorrect lab results. The FDA has seen an increase in the number of adverse events related to biotin interference with lab tests. Hepatitis B Surface Antibody Qual: This test does not differentiate between a vaccine induced immune response and an immune response induced by infection with HBV. Individuals that have received blood component therapies, (e.g. ??whole blood, plasma, immunoglobulin) administered during the previous 3 to 6 months may have a false reactive anti HBs due to passive transfer of anti HBs. A positive anti HBs result does not exclude co infection by another hepatitis virus. Biotin supplements can cause clinically significant incorrect lab results. The FDA has seen an increase in the number of adverse events related to biotin interference with lab tests. Hepatitis B Surface Antigen: This test may not detect all HBV mutants. If acute or chronic HBV infection is suspected and this test is non-reactive other HBV markers should be tested. Biotin supplements can cause clinically significant incorrect lab results. The FDA has seen an increase in the number of adverse events related to biotin interference with lab tests. Hepatitis C Antibody: A negative test result does not exclude the possibility of exposure to the hepatitis C virus and a reactive result does not exclude co-infection by another hepatitis virus. Biotin supplements can cause clinically significant incorrect lab results. The FDA has seen an increase in the number of adverse events related to biotin interference with lab tests. Kody Wong MD LAB BLOOD ORDERABLES Final Resu lt [facility] [address] [phone] * (ABNORMAL) Basic Metabolic Panel (05/15/2024 6:23 AM EDT) Sodium 137 136 - 146 meq/L 05/15/2024 6:49 AM EDT [facility] Potassium 3.9 3.5 - 5.1 meq/L 05/15/2024 6:49 AM EDT [facility] Chloride 102 102 - 112 meq/L 05/15/2024 6:49 AM EDT [facility] CO2 26 21 - 32 meq/L 05/15/2024 6:49 AM EDT [facility] Anion Gap 13 9 - 20 05/15/2024 6:49 AM EDT [facility] BUN 42(H) 7 - 22 mg/dL 05/15/2024 6:49 AM EDT [facility] Creatinine 9.01(H) 0.70 - 1.30 mg/dL 05/15/2024 6:49 AM EDT [facility] BUN/Creatinine 5(L) 8 - 20 05/15/2024 6:49 AM EDT [facility] Glucose 122(H) 74 - 106 mg/dL 05/15/2024 6:49 AM EDT [facility] Calcium 8.7 8.4 - 10.1 mg/dL 05/15/2024 6:49 AM EDT [facility] Osmolality Calc 285.6 6:49 AM EDT [facility] eGFR (mL/min/1.73m2) 7(L) >=60 mL/min/1.7 3m2 05/15/2024 6:49 AM EDT [facility] Comment:eGFR of <60 suggests chronic kidney disease if found over a 3 month period of time. eGFR <15 indicates renal failure. Blood Venipuncture / Unknown 05/15/2024 6:23 AM EDT 05/15/2024 6:30 AM EDT us Jay Strickland MD LAB BLOOD ORDERABLES Final Resul t [facility] [address] [phone] * Lipase (05/14/2024 3:38 PM EDT) Pathologist [facility] Lipase 29 13 - 75 U/L 05/14/2024 4:11 PM EDT [facility] Blood Venipuncture / Unknown 05/14/2024 3:38 PM EDT 05/14/2024 3:42 PM EDT us Amna Diaz MD LAB BLOOD ORDERABLES Final Res ult [facility] [address] [phone] * (ABNORMAL) POC-Potassium (05/07/2024 10:07 AM EDT) Only the most recent of3 resultswithin the time period is included. [facility] POC Potassium 6.2(HH) 3.5 - 4.9 mmol/L 05/07/2024 10:10 AM EDT [facility] Blood 05/07/2024 10:0 7 AM EDT 05/07/2024 10:10 AM EDT Narrative [facility] - 05/07/2024 10:10 AM EDT Outbound Sales Agent ID is - [id number] us Man Sky MD POINT OF CARE TEST ORDERABL ES Final Result [facility] [address] [phone] * (ABNORMAL) Glucose, iSTAT Meter (05/07/2024 9:52 AM EDT) Only the most recent of2 resultswithin the time period is included. [facility] POC-GLUCOSE 131(H) 70 - 105 mg/dL 05/07/2024 3:46 PM EDT [facility] Blood 05/07/2024 9:52 AM EDT 05/07/2024 3:46 PM EDT Narrative [facility] - 05/07/2024 3:46 PM EDT Outbound Sales Agent ID is - [id number] us Man Sky MD POINT OF CARE TEST ORDERABL ES Final Result [facility] [address] [place] [address], [facility] [phone] from Last 3 Months Insurance MEDICAID [facility] [facility] Advance Directives For more information, please contact: [phone] Documents on File Type Date Recorded Patient Color Maker Formulator Expl anation Advance Directives and Livin g Will 01/17/2023 7:14 AM * Full Code (Latest Code Status on File) Date Activated Date Inactivated Comments 06/27/2024 10:22 PM 06/30/2024 3:09 PM * Full Code Date Activated Date Inactivated Comments 05/14/2024 4:20 PM 05/16/2024 8:52 PM * Full Code Date Activated Date Inactivated Comments 05/07/2024 12:52 PM 05/13/2024 12:59 PM Care Teams Clinical Nurse Leader Relationship Specialty Start Date End Date Edgar Fournier MD [address] [place], [place] [id number] PCP - General Family Medicine 06/27/24
--- OUTSIDE RECORDS SUMMARY | 2024-07-12 12:20 | XMS_ITS | Referral Summary ---
Author Organization [employer] Address [address] [place] [address] Care Team Providers Care Cutch Cleaner Name Role Phone Edgar Fournier MD Primary Care Provider [phone] Encounters Date Type Department Care Team Description 06/27/2024 11:05 PM EST - 06/30/2024 2:05 PM EST Hospital Encounter [facility] Cardiothoracic Vascular Unit [address] [place] [phone] Jay Strickland MD Ma, Yuchen, MD Discharge Disposition: Home or Self Care 06/28/2024 Travel 05/14/2024 3:06 PM EDT - 05/16/2024 7:51 PM EDT Hospital Encounter [facility] Cardiac Telemetry 1 [place] [phone] Marilu Arceo DO Khan, Imran, MD Hyperkalemia (Primary Dx); Metabolic acidosis; Complication associated with dialysis catheter Discharge Disposition: Left Against Medical Advice 05/14/2024 Travel 05/07/2024 Travel 05/07/2024 10:55 AM EDT - 05/07/2024 5:50 PM EDT Hospital Encounter [facility] Heart [place] Short Stay Unit 1 [place] [phone] Man Sky MD Kredan, Tawfik, MD Absher, Dale R, MD End stage renal disease (HCC) Discharge Disposition: Home or Self Care 05/01/2024 Travel 05/01/2024 9:06 AM EDT - 05/01/2024 11:59 PM EDT Hospital Encounter [facility] Interventional Radiology Lab 1 [place] [address] Man Sky MD Jayavarapu, Ravi, MD End stage renal disease (HCC); Hemodialysis catheter dysfunction (HCC); Failure of hemodialysis access (HCC); Dependence on hemodialysis (HCC) Discharge Disposition: Home or Self Care from Last 3 Months Allergies Active Allergy Reactions Criticality Noted Date Comments Tacrolimus Other (See Comments) High 03/02/2021 Anxious feeling and muscle jerking. TOLERATED ENVARSUS BETTER THAN PROGRAF. Medications testosterone cypionate (DEPOTESTOTERONE CYPIONATE) 200 mg/mL injection Inject 1 mL (200 mg total) intramuscularly every 28 days. Active pantoprazole (PROTONIX) 40 MG tablet Take [...] by mouth 2 (two) times daily. Active montelukast (SINGULAIR) 10 mg tablet Take 1 tablet (10 mg total) by mouth nightly. Active insulin aspart U-100 (NovoLOG Flexpen U-100 Insulin) 100 unit/mL (3 mL) inpn Inject 5 Units subcutaneously 3 (three) times daily before meals. Active folic acid (FOLVITE) 1 MG tablet Take 1 tablet (1 mg total) by mouth daily. Active ALPRAZolam (XANAX) 0.5 MG tablet Take 1 tablet (0.5 mg total) by mouth daily as needed for anxiety. Active aspirin 81 MG chewable tablet Take 1 tablet (81 mg total) by mouth daily. Active calcium carbonate (Tums) 500 mg chewable tablet Take 2 tablets (1,000 mg total) by mouth 3 (three) times daily with meals. Active carvediloL (COREG) 25 MG tablet Take 1 tablet (25 mg total) by mouth 2 (two) times daily. Active ergocalciferol (ERGOCALCIFEROL) 1,250 mcg (50,000 unit) capsule Take 1 capsule (50,000 Units total) by mouth 3 (three) times a week MON/WED/FRI. 024 Active entecavir (BARACLUDE) 0.5 MG tablet [...] Take 50 mg by mouth. 2023 Discontinued [id number]-B 12-C-Zn 1 mg-1.5 mg- 1.7 mg-50 mg tab 2023 Discontinued doxazosin (CARDURA XL) 8 MG 24 hr tablet 2023 Discontinued cycloSPORINE (SandIMMUNE) 25 MG capsule Take by mouth. 024 2023 Discontinued Active Problems Problem Noted Date Diagnosed Date Pulmonary HTN 05/14/2024 Overview (05/14/2024): Last Assessment & Plan: Hasnt been transmitting cardiomems - will work with company to trouble shoot - aim to drive pressures down Pain 05/14/2024 Hyperkalemia 05/07/2024 AVF (arteriovenous fistula) 08/11/2023 Gastroesophageal reflux disease 07/18/2023 Obesity, Class III, BMI 40-49.9 (morbid obesity) 11/08/2021 Overview (05/14/2024): Lifestyle modification including weight loss was discussed again during this encounter. History of liver transplant 04/28/2020 Overview (05/14/2024): Active follow-up at [place], [place] Hyperlipidemia 04/13/2020 Type 2 diabetes mellitus [...] hospitalization at and during recent titration at [facility]. ESRD (end stage renal disease) on dialysis [...] & Plan: Increase coreg to 50mg bid Social History Tobacco Use Types Packs/Day Years [...] your living situation today? I have a [facility] place to live 06/28/2024 Think about the [...] Do you speak a language other than Serbian at [facility]? No 06/28/2024 Do you want help with [...] 05/14/2024 2:49 PM EDT Plan of Treatment Not on file Procedures Procedure Name Priority Date/Time Associated Diagnosis [...] of12 resultswithin the time period is included. POC-GLUCOSE 128(H) 70 - 110 mg/dL 06/30/2024 12:07 PM [facility] Comment:In the event of poor peripheral blood flow, venous or arterial blood should be used due to the potential of erroneous results. Electric Crane Operator [id number] 06/30/2024 12:07 PM [facility] Blood WHOLE BLOOD / Unknown 06/30/2024 12:05 PM EST 06/30/2024 12:07 PM EST Narrative [facility] - 06/30/2024 12:07 PM EST Electric Crane Operator ID is - [id number] us Huyen Levi MD POINT OF CARE TEST ORDERABLES Fi nal Result [facility] [address] [place] [address] * (ABNORMAL) Comprehensive metabolic panel (06/30/2024 5:15 AM EST) Only the most recent of10 resultswithin the time period is included. Sodium 132(L) 136 - 146 meq/L 06/30/2024 6:10 AM EST [facility] Potassium 4.3 3.5 - 5.1 meq/L 06/30/2024 6:10 AM EST [facility] Chloride 103 102 - 112 meq/L 06/30/2024 6:10 AM [facility] CO2 21 21 - 32 meq/L 06/30/2024 6:10 AM [facility] Calcium 8.1(L) 8.4 - 10.1 mg/dL 06/30/2024 6:10 AM [facility] Glucose 100 74 - 106 mg/dL 06/30/2024 6:10 AM [facility] BUN 49(H) 7 - 22 mg/dL 06/30/2024 6:10 AM [facility] Creatinine 9.56(H) 0.70 - 1.30 mg/dL 06/30/2024 6:10 AM [facility] BUN/Creatinine 5(L) 8 - 20 06/30/2024 6:10 AM [facility] Albumin 3.2(L) 3.4 - 5.0 g/dL 06/30/2024 6:10 AM [facility] Alkaline Phosphatase 190(H) 27 - 136 U/L 06/30/2024 6:10 AM [facility] ALT 7(L) 16 - 61 U/L 06/30/2024 6:10 AM [facility] AST 14 5 - 37 U/L 06/30/2024 6:10 AM [facility] Total Bilirubin 0.5 0.2 - 1.2 mg/dL 06/30/2024 6:10 AM [facility] Protein, Total 7.0 6.4 - 8.2 gm/dL 06/30/2024 6:10 AM [facility] Anion Gap 12 9 - 20 06/30/2024 6:10 AM [facility] A/G Ratio 0.8(L) 1.1 - 2.5 06/30/2024 6:10 AM [facility] Globulin 3.8 1.5 - 4.5 g/dL 06/30/2024 6:10 AM [facility] Osmolality Calc 277.6 6:10 AM [facility] eGFR (mL/min/1.73m2) 6(L) >=60 mL/min/1.7 3m2 06/30/2024 6:10 AM [facility] Comment:ESTIMATED GFR IS NOT ACCURATE CREATININE CLEARANCE IN PREDICTING GLOMERULAR FILTRATION RATE. ESTIMATED GFR IS NOT APPLICABLE FOR DIALYSIS PATIENTS. Blood Venipuncture / Unknown 06/30/2024 5:15 AM EST 06/30/2024 5:19 AM EST Mandi Kearney PA-C LAB BLOOD ORDERABLES Final Resul t Performing Organization Address City/[facility]/ZIP Co de Phone Number [facility] [address] [phone] * (ABNORMAL) Phosphorus (06/29/2024 12:21 PM EST) Only the most recent of3 resultswithin the time period is included. Phosphorus 10.1(H) 2.5 - 4.9 mg/dL 06/29/2024 4:19 PM EST [facility] Blood VENOUS LINE / Unknown Venipuncture / Unknown 06/29/2024 12:21 PM EST 06/29/2024 12:28 PM EST Karishma Hodge MD LAB BLOOD ORDERABLES Final Resu lt Performing Organization Address [facility] de Phone Number [facility] [address] [phone] * Magnesium (06/29/2024 12:21 PM EST) Only the most recent of4 resultswithin the time period is included. Magnesium 1.7 1.5 - 2.4 mg/dL 06/29/2024 4:19 PM EST [facility] Blood VENOUS LINE / Unknown Venipuncture / Unknown 06/29/2024 12:21 PM EST 06/29/2024 12:28 PM EST us Karishma Hodge MD LAB BLOOD ORDERABLES Final Resu lt Performing Organization Address City/[facility]/ZIP Co de Phone Number [facility] [address] [phone] * IR CENTRAL VENOUS (06/28/2024 4:58 PM [...] preserved after removal of catheter. ?? An 8-Vincentian sheath was then placed in the left [...] was preserved after removal of catheter. An 8-Vincentian sheath was then placed in the left [...] IV conscious sedation used. Humble Blankenship MD IMG IR ORDERABLES Final Result * (ABNORMAL) CBC with automated diff (06/28/2024 10:19 AM EST) Only the most recent of2 resultswithin the time period is included. WBC 7.5 4.2 - 9.1 K/??L 06/28/2024 12:28 PM [facility] RBC 3.11(L) 4.63 - 6.08 M/??L 06/28/2024 12:28 PM [facility] Hemoglobin 10.1(L) 13.7 - 17.5 GM/DL 06/28/2024 12:28 PM [facility] Hematocrit 32.3(L) 40.1 - 51.0 % 06/28/2024 12:28 PM [facility] MCV 104(H) 79 - 92 fL 06/28/2024 12:28 PM [facility] MCH 32.5(H) 25.7 - 32.2 pg 06/28/2024 12:28 PM [facility] MCHC 31.3(L) 32.3 - 36.5 GM/DL 06/28/2024 12:28 PM [facility] RDW 15.6(H) 11.6 - 14.4 % 06/28/2024 12:28 PM [facility] Platelets 232 140 - 375 K/CU MM 06/28/2024 12:28 PM [facility] MPV 9.7 9.4 - 12.4 fL 06/28/2024 12:28 PM [facility] % Neutros 70(H) 34 - 68 % 06/28/2024 12:28 PM [facility] % Lymphs 16(L) 22 - 53 % 06/28/2024 12:28 PM [facility] % Monos 5 5 - 12 % 06/28/2024 12:28 PM [facility] % Eos 2 1 - 7 % 06/28/2024 12:28 PM [facility] % Baso 0 0 - 1 % 06/28/2024 12:28 PM [facility] NRBC Absolute 0.03(H) 0 - 0.012 K/ul 06/28/2024 12:28 PM [facility] # Neutros 5.26 1.78 - 5.38 K/??L 06/28/2024 12:28 PM EST [facility] # Lymphs 1.21(L) 1.32 - 3.57 K/??L 06/28/2024 12:28 PM EST [facility] # Monos 0.40 0.30 - 0.82 K/??L 06/28/2024 12:28 PM EST [facility] # Eos 0.14 0.04 - 0.54 K/??L 06/28/2024 12:28 PM EST [facility] # Baso 0.03 0.01 - 0.08 K/??L 06/28/2024 12:28 PM [facility] Immature Granulocytes-Re lative 6.50(H) 0.01 - 0.43 % 06/28/2024 12:28 PM [facility] # IG 0.49(H) 0.00 - 0.03 K/uL 06/28/2024 12:28 PM [facility] Blood Venipuncture / Unknown 06/28/2024 [...] Blast? Flag noted Atypical Lymph flag noted Mandi Kearney PA-C LAB BLOOD ORDERABLES Final Resul t [facility] [address] [phone] * (ABNORMAL) Lactic Acid with reflex (SJ) [...] Resul t [facility] [address] [phone] * XR chest AP portable (06/28/2024 4:18 [...] Eduardo Jimenez. Transcribed by Valentin Davis PA-C us Mandi Kearney PA-C IMG DIAGNOSTIC IMAGING ORDERABLE S Final Result * (ABNORMAL) Blood gas, arterial (06/28/2024 3:49 AM EST) Only the most recent of2 resultswithin the time period is included. pH, Arterial 7.11(LL) 7.35 - 7.45 06/28/2024 3:52 AM [facility] pCO2, Arterial 42 35 - 45 mm Hg 06/28/2024 3:52 AM [facility] pO2, Arterial 104(H) 80 - 100 mm Hg 06/28/2024 3:52 AM [facility] HCO3, Arterial 13(L) 20 - 26 mmol/L 06/28/2024 3:52 AM [facility] Base Excess, Arterial -15.7(L) -2.0 - 2.0 mmol/L 06/28/2024 3:52 AM [facility] O2 Sat, Arterial 96.0 95.0 - 100.0 % 06/28/2024 3:52 AM [facility] CTO2 ARTERIAL 13.9 mmol/L 06/28/2024 3:52 AM [facility] THB ARTERIAL 10.4(L) 12.0 - 18.0 g/dL 06/28/2024 3:52 AM [facility] S[facility] COLLECTION SITE Right Radial 06/28/2024 3:52 AM [facility] Arterial Puncture Yes 06/28/2024 3:52 AM [facility] Blood Gas O2 Delivery Device Cannula 06/28/2024 3:52 AM [facility] Oxygen Flow Rate 2 06/28/20 24 3:52 AM [facility] Blood Gas PT Temperature C 37.0 06/28/2024 3:52 AM [facility] Michael's Test Acceptable 06/28/2024 3:52 AM [facility] Critical Values Notification Critical Blood gas called to JANA MATSON NOTIFIED . Results acknowledged/r ead back to [id number] and confirmed on 06/28/2024 03:51 06/28/2024 3:52 AM [facility] ABG Number of Draw Attempts 1 06/28/2024 3:52 AM [facility] FIO2 06/28/2024 3:52 AM [facility] Blood Gas Temperature Corrected Results No No 06/28/2024 3:52 AM EST [facility] Blood, Arterial ENTIRE RIGHT UPPER ARM / Unknown 06/28/2024 3:49 AM EST 06/28/2024 3:52 AM EST us Mandi Kearney PA-C LAB BLOOD ORDERABLES Final Resul t [facility] [address] [phone] * (ABNORMAL) CBC - Hemogram (SJ-BKR) (05/16/2024 [...] ORDERABLES Final Resul t Performing Organization Address [facility] de Phone Number [facility] [address] [phone] * Prothrombin time/INR (05/16/2024 6:17 PM EDT) [...] 6:17 PM EDT 05/16/2024 6:29 PM EDT Jay Strickland MD LAB BLOOD ORDERABLES Final Resul t Performing Organization Address [facility] Co de Phone Number [facility] [address] [phone] * IR TUNNELED DIALYSIS CATHETER EXCHANGE (05/16/2024 [...] catheter, presented for exchange of hemodialysis catheter. combine operator: CLARK Brown Medications: IV Conscious sedation was utilized for this procedure using 2 mg of Versed, and 100 mcg of Fentanyl. ??Additionally, 1% Lidocaine was used for skin and deep subcutaneous local anesthetic. Continuous cardiopulmonary/physiologic activity was monitored by highly qualified health primary care nurse practitioner/nurse during the the entire procedure. IV hydralazine 20 mg. Fluoroscopy Time: ??3.8 minutes Radiation exposure in reference to Air-Kerma: 487 mGy. Dose Area Product (DAP): 65509 micoGray/m2. Number of Images: 9 images. Antibiotic: [...] near the neck. ??Over the wire 7 Vincentian sheath was placed into the left brachiocephalic vein. Balloon angioplasty was performed for disruption of the fibular sheath utilizing 12 mm x 40 mm Oscoda balloon at multiple stations and subsequently with [...] catheter, presented for exchange of hemodialysis catheter. combine operator: CLARK Brown Medications: IV Conscious sedation was utilized for this procedure using 2 mg of Versed, and 100 mcg of Fentanyl. Additionally, 1% Lidocaine was used for skin and deep subcutaneous local anesthetic. Continuous cardiopulmonary/physiologic activity was monitored by highly qualified health primary care nurse practitioner/nurse during the the entire procedure. IV hydralazine 20 mg. Fluoroscopy Time: 3.8 minutes Radiation exposure in reference to Air-Kerma: 487 mGy. Dose Area Product (DAP): [id number] micoGray/m2. Number of Images: 9 images. Antibiotic: [...] near the neck. Over the wire 7 Vincentian sheath was placed into the left brachiocephalic vein. Balloon angioplasty was performed for disruption of the fibular sheath utilizing 12 mm x 40 mm Oscoda balloon at multiple stations and subsequently with [...] by CLARK Brown. us Mark Edwards MD [facility] IR ORDERABLES Final Resul t * Hepatitis [...] 6:23 AM EDT 05/15/2024 6:30 AM EDT Narrative [facility] - 05/15/2024 7:49 AM EDT Hepatitis [...] Resu lt [facility] [address] [phone] * (ABNORMAL) Basic Metabolic Panel (05/15/2024 6:23 AM EDT) Sodium 137 136 - 146 meq/L 05/15/2024 6:[facility] Potassium 3.9 3.5 - 5.1 [...] ORDERABLES Final Resul t Performing Organization Address City/[facility]/ZIP Co de Phone Number [facility] [address] [place] [address] * Lipase (05/14/2024 3:38 PM EDT) Lipase 29 13 - 75 U/L 05/14/2024 4:11 PM EDT [facility] Blood Venipuncture / Unknown 05/14/2024 3:38 PM EDT 05/14/2024 3:42 PM EDT us Amna Diaz MD LAB BLOOD ORDERABLES Final Res ult [facility] [address] [phone] * (ABNORMAL) POC-Potassium (05/07/2024 10:07 AM EDT) Only the most recent of3 resultswithin the time period is included. POC Potassium 6.2(HH) 3.5 - 4.9 mmol/L 05/07/2024 10:10 AM EDT [facility] Blood 05/07/2024 10:0 7 AM EDT 05/07/2024 10:10 AM EDT [facility] - 05/07/2024 10:10 AM EDT Electric Crane Operator ID is - [id number] Man Sky MD POINT OF CARE TEST ORDERABL ES Final Result [facility] [address] [phone] * (ABNORMAL) Glucose, iSTAT Meter (05/07/2024 9:52 AM EDT) Only the most recent of2 resultswithin the time period is included. [facility] POC-GLUCOSE 131(H) 70 - 105 mg/dL 05/07/2024 3:46 PM EDT [facility] Blood 05/07/2024 9:52 AM EDT 05/07/2024 3:46 PM EDT [facility] - 05/07/2024 3:46 PM EDT Electric Crane Operator ID is - [id number] Man Sky MD POINT OF CARE TEST ORDERABL ES Final Result Performing Organization Address [facility] Co de Phone Number [facility] [address] [phone] from Last 3 Months Insurance MEDICAID [employer] Member Subscriber Plan / Payer (Ef fective 2023-Present) Name:Aiden Stauffer Jr. Relation to Subscriber:Self Name:Aiden Stauffer Jr. Payer ID:[id number] Group ID:Not on file Type:Not on file [address] Advance Directives For more information, please contact: [phone] Documents on File Type Date Recorded Patient Superintendent Transmission Expl anation Advance Directives and Livin g Will 01/17/2023 7:14 AM * Full Code (Latest Code Status on File) Date Activated Date Inactivated Comments 06/27/2024 10:22 PM 06/30/2024 3:09 PM * Full Code Date Activated Date Inactivated Comments 05/14/2024 4:20 PM 05/16/2024 8:52 PM * Full Code Date Activated Date Inactivated Comments 05/07/2024 12:52 PM 05/13/2024 12:59 PM Care Teams Cutch Cleaner Relationship Specialty Start Date End Date Edgar Fournier MD [address] [place] [address] PCP - General Family Medicine 06/27/24
--- OUTSIDE RECORDS SUMMARY | 2024-07-12 12:20 | XMS_ITS | Encounter Summary ---
Author Organization [facility] [employer] Address [address] [place] [address] Care Team Providers Care Lean Manufacturing Specialist Name Role Phone Edgar Fournier MD Primary Care Provider [phone] Reason for Visit * Auth/Cert (Routine) Specialty Diagnoses / Procedures Referred By Declan t Referred To Contact Diagnoses Hyperkalemia HYPERKALEMIA [facility] [address] [place] [address] Phone: tel: fax: [facility] [address] [place] [address] Phone: tel: fax: Referral ID Status Reason Start Date Expiration Date Visits Re quested Visits Authorized [id number] 1 1 Encounter Details Date Type Department Care Team (Late st Contact Info) Description 06/27/2024 11:05 PM EST - 06/30/2024 2:05 PM EST Hospital Encounter [facility] [address] [place] [address] [place] [address] [place] [address] [address] Huyen Levi MD [address] [facility] [address] [address] Discharge Disposition: Home or Self Care Social [...] your living situation today? I have a [facility] place to live 06/28/2024 Think about [...] Do you speak a language other than Syriac at ho me? No 06/28/2024 Do you want help with [...] 1.4 oz) 06/28/2024 7:00 AM EST Height - - Body Mass Index 45.64 05/14/2024 2:49 PM EDT documented in this encounter Discharge Summaries * Huyen Levi MD - 06/30/2024 11:47 AM EST Images from the original note were not included. [facility] MEDICINE DISCHARGE SUMMARY Patient Name: Aiden Stauffer Jr. 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 He has end-stage kidney disease on hemodialysis. He presented outside facility with complaints of wheezing and weakness. Patient have been having difficulty with his hemodialysis access catheter which seems to be malfunctioning. He was unable to receive hemod ialysis. In the ED outside facility found to have potassium of 7.8, BUN of 112, serum creatinine 17, CO2 of 11, and phosphate level of greater than 12. In this context our service is asked to accept him. Transferring physician already spoken with the nephrology service on-call as well as critical care service butadiene convertor operator. Critical care agreed to replace hemodialysis access catheter emergently. Hospital Course: Patient transferred to our service and put in ICU and we did his urgent dialysis through the right femoral dialysis. IR consulted for left tunneled dialysis catheter so after dialysis the patient potassium level coming down and he feels much better and. He goes to dialysis today and patient doing much better and femoral dialysis catheter removed and the per renal service patient will be go to dialysis tomorrow at home and no other workup here and the patient want going home today no chest pain no trouble breathing everything looks good. I also talked to renal service as he cleared for discharge patient DO dialysis at home. Physical Exam: Vitals: 06/30/24 1110 BP: Pulse: Resp: (!) 48 Temp: SpO2: 90% General: Looks comfortable and no distress HEENT: Head atraumatic, normal cephalic. Neck: Supple. No JVD noted CVS: S1, S2 NORMAL Lungs: Bilateral air entry. Normal chest expansion. No wheezing GI: Soft. Nontender. Positive bowel sounds. Neurological: Alert oriented x3. No gross neurological focal deficits Musculoskeletal: Generally unremarkable. Skin: Warm and dry on exposed surface. Results for orders placed or performed during the hospital encounter of 06/27/24 (from the past 24 hours) Glucose, Nova Meter Status: Abnormal Collection Time: 06/29/24 12:18 PM Result Value Ref Range POC-GLUCOSE 130 (H) 70 - 110 mg/dL Operations And Maintenance Supervisor [id number] Comprehensive metabolic panel Status: Abnormal Collection Time: 06/29/24 12:21 PM Result Value Ref Range Sodium 136 136 - 146 meq/L Potassium 4.7 3.5 - 5.1 meq/L Chloride 102 102 - 112 meq/L CO2 19 (L) 21 - 32 meq/L Calcium 7.3 (L) 8.4 - 10.1 mg/dL Glucose 138 (H) 74 - 106 mg/dL BUN 89 (HH) 7 - 22 mg/dL Creatinine 13.64 (H) 0.70 - 1.30 mg/dL BUN/Creatinine 7 (L) 8 - 20 Albumin 3.1 (L) 3.4 - 5.0 g/dL Alkaline Phosphatase 178 (H) 27 - 136 U/L ALT 8 (L) 16 - 61 U/L AST 17 5 - 37 U/L Total Bilirubin 0.5 0.2 - 1.2 mg/dL Protein, Total 6.3 (L) 6.4 - 8.2 gm/dL Anion Gap 20 9 - 20 A/G Ratio 1.0 (L) 1.1 - 2.5 Globulin 3.2 1.5 - 4.5 g/dL Osmolality Calc 301.4 eGFR (mL/min/1.73m2) 4 (L) >=60 mL/min/1.73m2 Phosphorus Status: Abnormal Collection Time: 06/29/24 12:21 PM Result Value Ref Range Phosphorus 10.1 (H) 2.5 - 4.9 mg/dL Magnesium Status: Normal Collection Time: 06/29/24 12:21 PM Result Value Ref Range Magnesium 1.7 1.5 - 2.4 mg/dL Glucose, Nova Meter Status: Abnormal Collection Time: 06/29/24 8:42 PM Result Value Ref Range POC-GLUCOSE 127 (H) 70 - 110 mg/dL Operations And Maintenance Supervisor [id number] Comprehensive metabolic panel Status: Abnormal Collection Time: 06/29/24 8:56 PM Result Value Ref Range Sodium 132 (L) 136 - 146 meq/L Potassium 3.9 3.5 - 5.1 meq/L Chloride 100 (L) 102 - 112 meq/L CO2 21 21 - 32 meq/L Calcium 8.5 8.4 - 10.1 mg/dL Glucose 130 (H) 74 - 106 mg/dL BUN 43 (H) 7 - 22 mg/dL Creatinine 7.61 (H) 0.70 - 1.30 mg/dL BUN/Creatinine 6 (L) 8 - 20 Albumin 3.5 3.4 - 5.0 g/dL Alkaline Phosphatase 199 (H) 27 - 136 U/L ALT 11 (L) 16 - 61 U/L AST 19 5 - 37 U/L Total Bilirubin 0.5 0.2 - 1.2 mg/dL Protein, Total 7.3 6.4 - 8.2 gm/dL Anion Gap 15 9 - 20 A/G Ratio 0.9 (L) 1.1 - 2.5 Globulin 3.8 1.5 - 4.5 g/dL Osmolality Calc 277.1 eGFR (mL/min/1.73m2) 8 (L) >=60 mL/min/1.73m2 Comprehensive metabolic panel Status: Abnormal Collection Time: 06/30/24 1:12 AM Result Value Ref Range Sodium 133 (L) 136 - 146 meq/L Potassium 4.3 3.5 - 5.1 meq/L Chloride 105 102 - 112 meq/L CO2 20 (L) 21 - 32 meq/L Calcium 7.6 (L) 8.4 - 10.1 mg/dL Glucose 115 (H) 74 - 106 mg/dL BUN 46 (H) 7 - 22 mg/dL Creatinine 8.46 (H) 0.70 - 1.30 mg/dL BUN/Creatinine 5 (L) 8 - 20 Albumin 3.1 (L) 3.4 - 5.0 g/dL Alkaline Phosphatase 181 (H) 27 - 136 U/L ALT 8 (L) 16 - 61 U/L AST 18 5 - 37 U/L Total Bilirubin 0.4 0.2 - 1.2 mg/dL Protein, Total 6.8 6.4 - 8.2 gm/dL Anion Gap 12 9 - 20 A/G Ratio 0.8 (L) 1.1 - 2.5 Globulin 3.7 1.5 - 4.5 g/dL Osmolality Calc 279.2 eGFR (mL/min/1.73m2) 7 (L) >=60 mL/min/1.73m2 Glucose, Nova Meter Status: None Collection Time: 06/30/24 5:13 AM Result Value Ref Range POC-GLUCOSE 95 70 - 110 mg/dL Operations And Maintenance Supervisor [id number] Comprehensive metabolic panel Status: Abnormal Collection Time: 06/30/24 5:15 AM Result Value Ref Range Sodium 132 (L) 136 - 146 meq/L Potassium 4.3 3.5 - 5.1 meq/L Chloride 103 102 - 112 meq/L CO2 21 21 - 32 meq/L Calcium 8.1 (L) 8.4 - 10.1 mg/dL Glucose 100 74 - 106 mg/dL BUN 49 (H) 7 - 22 mg/dL Creatinine 9.56 (H) 0.70 - 1.30 mg/dL BUN/Creatinine 5 (L) 8 - 20 Albumin 3.2 (L) 3.4 - 5.0 g/dL Alkaline Phosphatase 190 (H) 27 - 136 U/L ALT 7 (L) 16 - 61 U/L AST 14 5 - 37 U/L Total Bilirubin 0.5 0.2 - 1.2 mg/dL Protein, Total 7.0 6.4 - 8.2 gm/dL Anion Gap 12 9 - 20 A/G Ratio 0.8 (L) 1.1 - 2.5 Globulin 3.8 1.5 - 4.5 g/dL Osmolality Calc 277.6 eGFR (mL/min/1.73m2) 6 (L) >=60 mL/min/1.73m2 MICROBIOLOGY: Microbiology Results (last 7 days) No results found for the last 168 hours. Studies Performed: IR CENTRAL VENOUS Result Date: 06/29/2024 COMPLETE REPLACEMENT TUNNELED CATHETER, SVC angiogram [...] of maximum sterile barrier technique were utilized includingcap, mask, sterile gown, sterile gloves, a large sterile sheet, hand hygiene, and 2% chlorhexidine (or acceptable alternative) for cutaneous antisepsis. Technique: The exposed catheter and adjacent skin was prepped and a routine sterile fashion. Local anesthesia was achieved with 1% lidocaine. Manual traction and blunt dissection were used to remove existing catheter. Guidewire access was preserved after removal of catheter. An 8-Bolivian sheath was then placed in the left [...] 2-0 nylon suture. Procedure was well tolerated. 1. Successful replacement of new tunneled left jugular dialysis catheter. 2. Central venography shows fibrin sleeve within the left innominate vein and SVC. 3. Balloon angioplasty performed of the fibrin sleeve with successful disruption. 4. Fluoroscopic guidance utilized with images acquired. 5. IV conscious sedation used. XR chest AP portable Result Date: 06/28/2024 PORTABLE CHEST HISTORY: Acute shortness of breath. COMPARISON: None. FINDINGS: The heart is enlarged in size with vascular congestion. The mediastinum is unremarkable. The lungs are clear. There is no pneumothorax. There is a left IJ dialysis catheter. Cardiomegaly with vascular congestion. Images reviewed, interpreted, and dictated by Dr. Rohith Hogue. Transcribed by Mandi Villaseñor PA-C. XR chest AP portable Result Date: 06/28/2024 PORTABLE CHEST 06/28/2024 4:18 AM HISTORY: Acute shortness of breath. COMPARISON: June 27, 2024. FINDINGS: The heart is normal in size . The mediastinum is unremarkable . There is increasing pulmonary vascular congestion. There is no significant pleural effusion. There is no pneumothorax . Left-sided dialysis catheter is unchanged. Findings suggestive of mild congestive heart failure. Images reviewed, interpreted, and dictated byDr. Carlos Eduardo Jimenez. Transcribed by Valentin Davis PA-C Discharge Medications: Your medication list CONTINUE taking these medications Instructions Comments Quantity Refills ALPRAZolam 0.5 MG tablet Commonly known as: XANAX Take 1 tablet (0.5 mg total) by mouth daily as needed for anxiety. 0 aspirin 81 MG chewable tablet Take 1 tablet (81 mg total) by mouth daily. 0 calcitRIOL 0.25 MCG capsule Commonly known as: ROCALTROL Take 1 capsule (0.25 mcg total) by mouth daily. 0 carBAMazepine 200 mg tablet Commonly known as: TEGretol Take 1 tablet (200 mg total) by mouth 2 (two) times daily. 0 carvediloL 25 MG tablet Commonly known as: COREG Take 1 tablet (25 mg total) by mouth 2 (two) times daily. 0 cinacalcet 60 MG tablet Commonly known as: SENSIPAR Take 3 tablets (180 mg total) by mouth daily with dinner. 0 * cycloSPORINE modified 25 MG capsule Commonly known as: GENGRAF Take 4 capsules (100 mg total) by mouth in the morning. 0 * cycloSPORINE modified 25 MG capsule Commonly known as: GENGRAF Take 5 capsules (125 mg total) by mouth nightly. 0 doxazosin 8 MG tablet Commonly known as: CARDURA Take 1 tablet (8 mg total) by mouth nightly. 0 entecavir 0.5 MG tablet Commonly known as: BARACLUDE Take 1 tablet (0.5 mg total) by mouth once a week. 0 ergocalciferol 1,250 mcg (50,000 unit) capsule Commonly known as: DRISDOL Take 1 capsule (50,000 Units total) by mouth 3 (three) times a week MON/WED/FRI. 0 fenofibrate micronized 134 MG capsule Commonly known as: LOFIBRA Take 1 capsule (134 mg total) by mouth every morning before breakfast. 0 fexofenadine 180 MG tablet Commonly known as: FRANCOIS Take 1 tablet (180 mg total) by mouth daily. 0 folic acid 1 MG tablet Commonly known as: FOLVITE Take 1 tablet (1 mg total) by mouth daily. 0 gabapentin 800 MG tablet Commonly known as: NEURONTIN Take 1 tablet (800 mg total) by mouth 2 (two) times daily. Max Daily Amount: 1,600 mg 0 HumuLIN N NPH Insulin KwikPen 100 unit/mL (3 mL) Inpn Generic drug: insulin NPH isoph U-100 human Inject 40 Units subcutaneously daily with breakfast. 0 hydrALAZINE 100 MG tablet Commonly known as: APRESOLINE Take 1 tablet (100 mg total) by mouth 3 (three) times daily. 0 montelukast 10 mg tablet Commonly known as: SINGULAIR Take 1 tablet (10 mg total) by mouth nightly. 0 mycophenolate mofetil 250 mg capsule Commonly known as: CELLCEPT Take 1 capsule (250 mg total) by mouth 2 (two) times daily. 0 NIFEdipine 90 MG 24 hr tablet Commonly known as: ADALAT CC Take 1 tablet (90 mg total) by mouth 2 (two) times daily. 0 NovoLOG Flexpen U-100 Insulin 100 unit/mL (3 mL) Inpn Generic drug: insulin aspart U-100 Inject 5 Units subcutaneously 3 (three) times daily before meals. 0 pantoprazole 40 MG tablet Commonly known as: PROTONIX Take 1 tablet (40 mg total) by mouth 2 (two) times daily before meals Can take up to 3 tablets/day as directed. 0 paricalcitoL 2 MCG capsule Commonly known as: ZEMPLAR Take 1 capsule (2 mcg total) by mouth daily. 0 polyethylene glycol 17 gram packet Commonly known as: GLYCOLAX Take 17 g by mouth daily as needed (for Constipation). 0 testosterone cypionate 200 mg/mL injection Commonly known as: DEPO-TESTOTERONE Inject 1 mL (200 mg total) intramuscularly every 28 days. 0 Tums 500 mg chewable tablet Generic drug: calcium carbonate Take 2 tablets (1,000 mg total) by mouth 3 (three) times daily with meals. 0 Vascepa 1 gram Cap capsule Generic drug: icosapent ethyL Take 2 capsules (2 g total) by mouth 2 (two) times daily with breakfast and dinner. 0 Xphozah 30 mg Tab Generic drug: tenapanor Take 1 tablet by mouth 2 (two) times daily. 0 * This list has 2 medication(s) that are the same as other medications prescribed for you. Read thedirections carefully, and ask your doctor or other care provider to review them with you. Discharge Instructions Discharge Diet: Renal diet Discharge Activity: as tolerated Discharge Follow UP: Contact information for follow-up Edgar Fournier MD Specialty: Family Medicine Relationship: PCP - General [address] [place] [address] Next Steps: Follow up in 1 week(s) renal survice Next Steps: Follow up in 1 week(s) Time Spent: > 30 min Electronically signed by Huyen Levi MD, 06/30/24, 11:47 AM EST ApplyMap is used for dictation of this note and sound-alike words might be erroneously placed despite reviewing the note for accuracy. Errors in dictation may reflect use of voice recognitionsoftware and not all errors in scuba diving instructor may have been detected prior to signing. ARCH AFFILIATE documented in this encounter Discharge Instructions * Discharge Instr - Diet* Ayaz Mejias RN - 06/30/2024 11:52 AM EST Renal and dialysis diet ARCH AFFILIATE * Attachments The following attachments cannot be sent through Care Everywhere. * Hyperkalemia (Syriac) documented in this encounter Medications at Time of Discharge ALPRAZolam (XANAX) 0.5 MG tablet Take 1 tablet (0.5 mg total) by mouth daily as needed for anxiety. 05/05/2023 aspirin 81 MG chewable tablet Take 1 tablet (81 mg total) by mouth daily. calcitRIOL (ROCALTROL) 0.25 MCG capsule Take 1 capsule (0.25 mcg total) by mouth daily. calcium carbonate (Tums) 500 mg chewable tablet Take 2 tablets (1,000 mg total) by mouth 3 (three) times daily with meals. 04/30/2024 carBAMazepine (TEGretol) 200 mg tablet Take 1 tablet (200 mg total) by mouth 2 (two) times daily. carvediloL (COREG) 25 MG tablet Take 1 tablet (25 mg total) by mouth 2 (two) times daily. cinacalcet (SENSIPAR) 60 MG tablet Take 3 tablets (180 mg total) by mouth daily with dinner. cycloSPORINE modified (GENGRAF) 25 MG capsule Take 4 capsules (100 mg total) by mouth in the morning. cycloSPORINE modified (GENGRAF) 25 MG capsule Take 5 capsules (125 mg total) by mouth nightly. doxazosin (CARDURA) 8 MG tablet Take 1 tablet (8 mg total) by mouth nightly. entecavir (BARACLUDE) 0.5 MG tablet Take 1 tablet (0.5 mg total) by mouth once a week. ergocalciferol (ERGOCALCIFEROL ) 1,250 mcg (50,000 unit) capsule Take 1 capsule (50,000 Units total) by mouth 3 (three) times a week MON/WED/FRI. 11/14/2023 fenofibrate micronized (LOFIBRA) 134 MG capsule Take 1 capsule (134 mg total) by mouth every morning before breakfast. fexofenadine (FRANCOIS) 180 MG tablet Take 1 tablet (180 mg total) by mouth daily. folic acid (FOLVITE) 1 MG tablet Take 1 tablet (1 mg total) by mouth daily. gabapentin (NEURONTIN) 800 MG tablet Take 1 tablet (800 mg total) by mouth 2 (two) times daily. Max Daily Amount: 1,600 mg hydrALAZINE (APRESOLINE) 100 MG tablet Take 1 tablet (100 mg total) by mouth 3 (three) times daily. icosapent ethyL (Vascepa) 1 gram cap capsule Take 2 capsules (2 g total) by mouth 2 (two) times daily with breakfast and dinner. insulin aspart U-100 (NovoLOG Flexpen U-100 Insulin) 100 unit/mL (3 mL) inpn Inject 5 Units subcutaneously 3 (three) times daily before meals. 10/12/2023 insulin NPH isoph U-100 human (HumuLIN N NPH Insulin KwikPen) 100 unit/mL (3 mL) inpn Inject 40 Units subcutaneously daily with breakfast. montelukast (SINGULAIR) 10 mg tablet Take 1 tablet (10 mg total) by mouth nightly. mycophenolate (CELLCEPT) 250 mg capsule Take 1 capsule (250 mg total) by mouth 2 (two) times daily. 01/17/2024 NIFEdipine (ADALAT CC) 90 MG 24 hr tablet Take 1 tablet (90 mg total) by mouth 2 (two) times daily. pantoprazole (PROTONIX) 40 MG tablet Take 1 tablet (40 mg total) by mouth 2 (two) times daily before meals Can take up to 3 tablets/day as directed. paricalcitoL (ZEMPLAR) 2 MCG capsule Take 1 capsule (2 mcg total) by mouth daily. polyethylene glycol (GLYCOLAX) 17 gram packet Take 17 g by mouth daily as needed (for Constipation). tenapanor (Xphozah) 30 mg tab Take 1 tablet by mouth 2 (two) times daily. testosterone cypionate (DEPOTESTOTERON E CYPIONATE) 200 mg/mL injection Inject 1 mL (200 mg total) intramuscularly every 28 days. 11/14/2023 documented as of this encounter Progress Notes * Karishma Hodge MD - 06/30/2024 9:26 AM EST Subjective No acute events overnight. No new complain Review of Systems No CP, SOA, N/V, fever, chills or rash Objective Last Recorded Vitals Blood pressure (!) 165/84, pulse 97, temperature 97.7 ??F (36.5 ??C), temperature source Oral, resp. rate (!) 32, weight (!) 140.2 kg (309 lb 1.4 oz), SpO2 96%. Physical Exam Gen: Alert, NAD HEENT: NC, AT Neck: Supple, no JVD Lungs: CTA. Non labored, symetrical chest expansion CVS: SI/S2 audible. RRR, No M/G noted Abd: soft, NT, ND, BS + Ext: + Pedal edema , no cyanosis DIRECTORY CLERK: Alert, No focal deficit noted grossly Psy: Cooperative Labs: Results for orders placed or performed during the hospital encounter of 06/27/24 (from the past 24 hours) Glucose, Nova Meter Status: Abnormal Collection Time: 06/29/24 12:18 PM Result Value Ref Range POC-GLUCOSE 130 (H) 70 - 110 mg/dL Operations And Maintenance Supervisor [id number] Comprehensive metabolic panel Status: Abnormal Collection Time: 06/29/24 12:21 PM Result Value Ref Range Sodium 136 136 - 146 meq/L Potassium 4.7 3.5 - 5.1 meq/L Chloride 102 102 - 112 meq/L CO2 19 (L) 21 - 32 meq/L Calcium 7.3 (L) 8.4 - 10.1 mg/dL Glucose 138 (H) 74 - 106 mg/dL BUN 89 (HH) 7 - 22 mg/dL Creatinine 13.64 (H) 0.70 - 1.30 mg/dL BUN/Creatinine 7 (L) 8 - 20 Albumin 3.1 (L) 3.4 - 5.0 g/dL Alkaline Phosphatase 178 (H) 27 - 136 U/L ALT 8 (L) 16 - 61 U/L AST 17 5 - 37 U/L Total Bilirubin 0.5 0.2 - 1.2 mg/dL Protein, Total 6.3 (L) 6.4 - 8.2 gm/dL Anion Gap 20 9 - 20 A/G Ratio 1.0 (L) 1.1 - 2.5 Globulin 3.2 1.5 - 4.5 g/dL Osmolality Calc 301.4 eGFR (mL/min/1.73m2) 4 (L) >=60 mL/min/1.73m2 Phosphorus Status: Abnormal Collection Time: 06/29/24 12:21 PM Result Value Ref Range Phosphorus 10.1 (H) 2.5 - 4.9 mg/dL Magnesium Status: Normal Collection Time: 06/29/24 12:21 PM Result Value Ref Range Magnesium 1.7 1.5 - 2.4 mg/dL Glucose, Nova Meter Status: Abnormal Collection Time: 06/29/24 8:42 PM Result Value Ref Range POC-GLUCOSE 127 (H) 70 - 110 mg/dL Operations And Maintenance Supervisor [id number] Comprehensive metabolic panel Status: Abnormal Collection Time: 06/29/24 8:56 PM Result Value Ref Range Sodium 132 (L) 136 - 146 meq/L Potassium 3.9 3.5 - 5.1 meq/L Chloride 100 (L) 102 - 112 meq/L CO2 21 21 - 32 meq/L Calcium 8.5 8.4 - 10.1 mg/dL Glucose 130 (H) 74 - 106 mg/dL BUN 43 (H) 7 - 22 mg/dL Creatinine 7.61 (H) 0.70 - 1.30 mg/dL BUN/Creatinine 6 (L) 8 - 20 Albumin 3.5 3.4 - 5.0 g/dL Alkaline Phosphatase 199 (H) 27 - 136 U/L ALT 11 (L) 16 - 61 U/L AST 19 5 - 37 U/L Total Bilirubin 0.5 0.2 - 1.2 mg/dL Protein, Total 7.3 6.4 - 8.2 gm/dL Anion Gap 15 9 - 20 A/G Ratio 0.9 (L) 1.1 - 2.5 Globulin 3.8 1.5 - 4.5 g/dL Osmolality Calc 277.1 eGFR (mL/min/1.73m2) 8 (L) >=60 mL/min/1.73m2 Comprehensive metabolic panel Status: Abnormal Collection Time: 06/30/24 1:12 AM Result Value Ref Range Sodium 133 (L) 136 - 146 meq/L Potassium 4.3 3.5 - 5.1 meq/L Chloride 105 102 - 112 meq/L CO2 20 (L) 21 - 32 meq/L Calcium 7.6 (L) 8.4 - 10.1 mg/dL Glucose 115 (H) 74 - 106 mg/dL BUN 46 (H) 7 - 22 mg/dL Creatinine 8.46 (H) 0.70 - 1.30 mg/dL BUN/Creatinine 5 (L) 8 - 20 Albumin 3.1 (L) 3.4 - 5.0 g/dL Alkaline Phosphatase 181 (H) 27 - 136 U/L ALT 8 (L) 16 - 61 U/L AST 18 5 - 37 U/L Total Bilirubin 0.4 0.2 - 1.2 mg/dL Protein, Total 6.8 6.4 - 8.2 gm/dL Anion Gap 12 9 - 20 A/G Ratio 0.8 (L) 1.1 - 2.5 Globulin 3.7 1.5 - 4.5 g/dL Osmolality Calc 279.2 eGFR (mL/min/1.73m2) 7 (L) >=60 mL/min/1.73m2 Glucose, Nova Meter Status: None Collection Time: 06/30/24 5:13 AM Result Value Ref Range POC-GLUCOSE 95 70 - 110 mg/dL Operations And Maintenance Supervisor [id number] Comprehensive metabolic panel Status: Abnormal Collection Time: 06/30/24 5:15 AM Result Value Ref Range Sodium 132 (L) 136 - 146 meq/L Potassium 4.3 3.5 - 5.1 meq/L Chloride 103 102 - 112 meq/L CO2 21 21 - 32 meq/L Calcium 8.1 (L) 8.4 - 10.1 mg/dL Glucose 100 74 - 106 mg/dL BUN 49 (H) 7 - 22 mg/dL Creatinine 9.56 (H) 0.70 - 1.30 mg/dL BUN/Creatinine 5 (L) 8 - 20 Albumin 3.2 (L) 3.4 - 5.0 g/dL Alkaline Phosphatase 190 (H) 27 - 136 U/L ALT 7 (L) 16 - 61 U/L AST 14 5 - 37 U/L Total Bilirubin 0.5 0.2 - 1.2 mg/dL Protein, Total 7.0 6.4 - 8.2 gm/dL Anion Gap 12 9 - 20 A/G Ratio 0.8 (L) 1.1 - 2.5 Globulin 3.8 1.5 - 4.5 g/dL Osmolality Calc 277.6 eGFR (mL/min/1.73m2) 6 (L) >=60 mL/min/1.73m2 IR CENTRAL VENOUS Narrative: COMPLETE REPLACEMENT TUNNELED CATHETER, SVC angiogram and [...] was preserved after removal of catheter. An 8-Bolivian sheath was then placed in the left [...] 2-0 nylon suture. Procedure was well tolerated. Impression: 1. Successful replacement of new tunneled left jugular dialysis catheter. 2. Central venography shows fibrin sleeve within the left innominate vein and SVC. 3. Balloon angioplasty performed of the fibrin sleeve with successful disruption. 4. Fluoroscopic guidance utilized with images acquired. 5. IV conscious sedation used. Recent Labs Lab(s) Units 06/30/24 0515 06/30/24 0513 06/30/24 0112 06/29/24 2056 06/29/24 2042 06/29/24 1221 06/28/24 1910 06/28/24 1019 NA meq/L 132* -- 133* 132* -- 136 < > 136 K meq/L 4.3 -- 4.3 3.9 -- 4.7 < > 4.6 CL meq/L 103 -- 105 100* -- 102 < > 104 CO2 meq/L 21 -- 20* 21 -- 19* < > 24 BUN mg/dL 49* -- 46* 43* -- 89* < > 76* CREATININE mg/dL 9.56* -- 8.46* 7.61* -- 13.64* < > 11.60* ALBUMIN g/dL 3.2* -- 3.1* 3.5 -- 3.1* < > 3.8 GLUCOSE mg/dL 100 95 115* 130* < > 138* < > 98 CALCIUM mg/dL 8.1* -- 7.6* 8.5 -- 7.3* < > 7.8* WBC K/??L -- -- -- -- -- -- -- 7.5 PLT K/CU MM -- -- -- -- -- -- -- 232 HGB GM/DL -- -- -- -- -- -- -- 10.1* < > = values in this interval not displayed. Assessment 1- ESRD - HD - Home dialysis - 4 times a week. TDC exchanged yesterday 2- Hyponatremia 3- Anemia of chronic disease 4- KIM 5- DM type II Plan: - HD tomorrow, UF as tolerated - He is requesting to be released early today so he can do dialysis at home - Renal diet. - MINERVA with HD - Electrolytes will be corrected with HD Discussed with patient, family and RN at bedside. ARCH AFFILIATE * Chidi Ortiz, PT - 06/30/2024 9:05 AM EST Images from the original note were not included. Inpatient Physical Therapy Initial Evaluation Patient Name: Aiden Stauffer Jr. Date of : 1975 Date of Evaluation: 06/30/24 In Time 0905 Out Time 0933 Session Duration 28 minutes Time spent for nursing collaboration, chart and systems review, and clinical reasoning. 10 minutes Total Time 38 minutes Pt is a 49 y.o. male admitted on 06/27/2024 with Hyperkalemia [E87.5]. Past Medical History: Diagnosis Date Chronic kidney disease Diabetes mellitus (HCC) Hepatitis Hypertension KIM (nonalcoholic steatohepatitis) Past Surgical History: Procedure Laterality Date AV FISTULA PLACEMENT TRANSPLANT,LIVER General Visit Type: Initial Evaluation Approved By: Nurse Carey Patient Disposition Upon Entry: Patient in bedside chair, Call Light/Pull Cord in reach, All needs met and within reach, Nursing aware/notified, HOB >30 degrees Patient Verified By: Name and Date of Assisted by: veterinary assistant technician Precautions Weight-Bearing Status: No Restrictions Precautions: Fall risk Isolation Precautions: Standard Lines, tubes, drains, airway: Femoral Dialysis catheter, peripheral IV, telemetry Subjective Subjective: Patient agreeable to physical therapy evaluation and treatment. Pain No - Patient not reporting pain at this time Cognition Overall cognitive status: Patient is awake and alert, attending to directions appropriately, demonstrating good problem solving skills, and aware of any deficits or impairments, if present. Orientation Level: Oriented x4 Following commands: Able to follow commands appropriately with tactile cueing Able to follow commands appropriately with verbal cueing Home Living Lives with: Spouse Home Type: House Home Layout: One level Stairs to enter: ramped entrance Stairs inside home: none Home Equipment: Rolling walker, Rollator, Quad cane, BSC, Shower chair Functional Mobility PLOF: Patient reports being complete independent with all functional mobility prior to onset. Activities of Daily Living PLOF: Patient reports being complete independent with all ADL's prior toonset. Fall History: No, patient denies any falls over the last 6 months. Objective Vitals Pre-intervention vitals Heart rate: 100 beats per minute Blood pressure: 144/81 mmHg SpO2: 90% Post-intervention vitals Heart rate: 102 beats per minute Blood pressure: 164/87 mmHg SpO2: 92% Basic Strength Assessment Gross strength 4/5 Range of Motion Assessment WFL for all extremities Sensation Decreased sensation to light touch BLE Coordination Coordination is intact and within normal limits. Functional Mobility Bed Mobility Patient up in bedside chair, therefore, bed mobility not assessed this date. Transfers Sit to Stand: contact guard assist, gait belt used, rolling walker used Stand to Sit: contact guard assist, gait belt used, rolling walker used Gait Gait Assistance: contact guard assist Assistive Device: Gait Belt, Rolling walker Distance: 5' fwd/Bkwd Gait speed: Reduced Deviation(s): increased trunk flexion, Comment: decreased step length Stair Management Not assessed due to precautions due to Femoral Dialysis Cath. Wheelchair Mobility Not assessed, patient ambulatory. Outcome Measures AM-PAC Basic Mobility Inpatient Short Form How much difficulty does the patient currently have: Turning over in bed (including adjusting bedclothes, sheets, and blankets)? (1) Total/Unable (not able to do the activity or can only perform the activity using assistive devices or requires assistance from another person, including supervision or cueing for safety) Sitting down on and standing up from a chair with arms (e.g., wheelchair, bedside commode, etc.)? (1) Total/Unable (not able to do the activity or can only perform the activity using assistive devices or requires assistance from another person, including supervision or cueing for safety) Moving from lying on back to sitting on side of bed? (1) Total/Unable (not able to do the activity or can only perform the activity using assistive devices or requires assistance from another person,including supervision or cueing for safety) How much help from another person does the patient currently need: Moving to and from a bed to a chair (including a wheelchair)? (3) A little (Minimal/Contact guard/Supervision/Setup) Need to walk in hospital room? (3) A little (Minimal/Contact guard/Supervision/Setup) Climbing 3-5 steps with a railing? (1) Total/Unable (Total assist/dependent) Score Raw score=10 t-Scale score=32.29 Standard error=3.42 CMS 0-100%=76.75% MDC=4.72 A raw score of >= 16 is significantly associated with increased odds of discharge to home in addition to consideration made for the patient's cognition and social determinants of health. Balance Static/dynamic sitting and static/dynamic standing balance grades Balance Grade Sitting Static Good - patient able to maintain balance without handhold support, limited postural sway Sitting Dynamic Fair - patient accepts minimal challenge; able to maintain balance while turning head/trunk Standing Static Fair - patient able to maintain balance with handhold support; may require occasional minimal assistance Standing Dynamic Fair - patient accepts minimal challenge; able to maintain balance while turning head/trunk Activity Tolerance Patient limited with activity/intervention due to fatigue, deconditioning, and weakness Treatment Pt performed transfers and gait training to improve performance with fxnl tasks. Integrity at femoral dialysis catheter assessed with no bleeding. Pt stood from chair with no complications then took 5 steps fwd and back then stood for five minutes with performing intermittent weight shifts. Pt thenassisted to chair and performed TE. R femoral dialysis cath assessed and no bleeding or complications from mobility. Nsg notified following PTx of pt status. Therapist facilitated the correct execution of therapeutic exercises to maximize benefit for strengthening and to improve activity tolerance. LE therapeutic exercise AROM, glute set, ankle pumps Assessment Pt tolerated skilled interventions with moderate fatigue and no pain following PTx. Pt's impairments limit them from safely and independently performing bed mobility and transfers. Pt would continue to benefit from PTx to address deficits and decrease level of assist with functional tasks. Problems: Decreased core stability, Decreased functional mobility, Decreased gait tolerance, Decreased strength, Decreased activity tolerance, Impaired sitting balance, Impaired standing balance, Impaired dynamic balance, Gait impairment, Postural deviations, Restricted ROM, Sensory deficits Rehab potential: Good for stated goals Plan Treatment Plan: Therapeutic Exercise, Therapeutic Activity, Gait Training, Neuromuscular Re-education, Transfer Training, Balance Training, Stair Training, Strengthening, Home Exercise Program, Pain Management, Patient/Family/Caregiver Education, DME Recommendations, Proprioceptive Re-training, Postural Re- education, Co-Treat with OT PT Frequency/Duration: 5x/week for 14 days Recommendations Discharge recommendations: Discharge home/prior living situation. Patient would benefit from continued therapy services. DME recommendations: Patient would benefit from the use of a Rolling walker upon discharge. Per thepatient, the patient does have access to the recommended DME/adaptive equipment. Goals Supine to/from sit: Ethan with bed rails Sit to/from stand: Ethan RWx Gait: 375' RWx supervision Target Date: 07/14/2024 Goals were discussed with patient Education Patient educated on safety, use of call button, role of physical therapy, plan of care, therapeuticexercise, ambulation, transfers, bed mobility, adaptive equipment, energy conservation strategies (ex: pursed-lip breathing), ROM/positioning, proper positioning and balance required for functional mobility tasks, home safety, need for assistance, and risk for falls and following, they were able toverbalize and demonstrate understanding. No further questions or concerns stated. Patient Disposition Upon Leaving Patient in bedside chair, Call Light/Pull Cord in reach, All needs met and within reach, Nursing aware/notified If this patient discharges prior to next therapy session, this note serves as the patient's discharge summary. Electronically signed by Chidi Ortiz PT - 06/30/24 - 9:55 AM EST ARCH AFFILIATE * Frank Zaragoza MD - 06/30/2024 8:36 AM EST Consults PULMONARY AND CRITICAL CARE Consult Note Date of Service: 06/30/2024 Time: 12:28 AM HPI: This is a 49 y.o. year old male with past medical history significant for ESRD on HD 3-4x/week, DM II, hepatitis, hypertension, KIM s/p liver transplant 2018, JC wears Bipap at night. Patient presented to OSH with complaints of wheezing and weakness. He has not received HD in almost a week. He was found to have malfunctioning HD catheter. At OSH, labs were significant for potassium of 7.8, BUN 112, creatinine 17, CO2 11, phosphate >12. Patient was transferred to [facility] for higher level of care. Potassium was treated at OSH prior to transfer. Pulmonary is consulted for critical care management. Daily progress note: 06/29: Seen and examined, s/p HD, right femoral dialysis cath temporary inserted 07/03/2024, 2 L nasal cannula taking p.o. palpation controlled with Coreg/Procardia, IR consulted for troubleshooting left tunneled dialysis catheter yesterday, will resume HD. Nephrology, has a history on CPAP machinefor obstructive sleep apnea and uses home machine. 06/30: Seen and examined, s/p HD 2 days in a row, uncontrolled HTN, resume home oral meds, nephrology following, taking p.o., JC CPAP at night at home oxygen, discharge planning/transferred to the floor pending PAST MEDICAL HISTORY: Past Medical History: Diagnosis Date Chronic kidney disease Diabetes mellitus (HCC) Hepatitis Hypertension KIM (nonalcoholic steatohepatitis) PAST SURGICAL HISTORY: Past Surgical History: Procedure Laterality Date AV FISTULA PLACEMENT TRANSPLANT,LIVER Allergies: Allergies Allergen Reactions Tacrolimus Other (See Comments) Anxious feeling and muscle jerking. TOLERATED ENVARSUS BETTER THAN PROGRAF. SOCIAL HISTORY: Social History Tobacco Use Smoking status: Never Smokeless tobacco: Never Substance Use Topics Alcohol use: Not Currently Drug use: Never FAMILY HISTORY: family history is not on file. Review of Systems Constitutional: Negative. Respiratory: Negative for shortness of breath. Cardiovascular: Negative for chest pain. Musculoskeletal: Positive for joint pain. All other systems reviewed and are negative. Vital Signs Temp: [97.5 ??F (36.4 ??C)-98.2 ??F (36.8 ??C)] 98.2 ??F (36.8 ??C) Pulse: [80-103] 93 Resp: [12-53] 15 BP: (130-184)/(70-103) 181/86 Current: Temp: 98.2 ??F (36.8 ??C) Pulse: 93 Resp: 15 BP: (!) 181/86 SpO2: 97 % 24 Hour: BP Min: 130/70 Max: 184/93 Temp Min: 97.5 ??F (36.4 ??C) Max: 98.2 ??F (36.8 ??C) Pulse Min: 80 Max: 103 Resp Min: 12 Max: 53 SpO2 Min: 89 % Max: 97 % Intake/Output: I/O last 3 completed shifts: In: 1360 [P.O.:960; Other:400] Out: 3006 [Other:3006] Physical Exam Constitutional: Appearance: He is obese. He is not ill-appearing. HENT: Head: Normocephalic. Nose: Nose normal. Mouth/Throat: Mouth: Mucous membranes are moist. Eyes: Pupils: Pupils are equal, round, and reactive to light. Cardiovascular: Rate and Rhythm: Normal rate and regular rhythm. Pulmonary: Breath sounds: No wheezing or rhonchi. Abdominal: Palpations: Abdomen is soft. Comments: Obese Musculoskeletal: Right lower leg: Edema present. Left lower leg: Edema present. Skin: General: Skin is warm and dry. Neurological: Mental Status: He is alert and oriented to person, place, and time. Psychiatric: Mood and Affect: Mood normal. Vent / O2 Management: LABS Results for orders placed or performed during the hospital encounter of 06/27/24 (from the past 24 hours) Glucose, Nova Meter Status: Abnormal Collection Time: 06/29/24 12:18 PM Result Value Ref Range POC-GLUCOSE 130 (H) 70 - 110 mg/dL Operations And Maintenance Supervisor [id number] Comprehensive metabolic panel Status: Abnormal Collection Time: 06/29/24 12:21 PM Result Value Ref Range Sodium 136 136 - 146 meq/L Potassium 4.7 3.5 - 5.1 meq/L Chloride 102 102 - 112 meq/L CO2 19 (L) 21 - 32 meq/L Calcium 7.3 (L) 8.4 - 10.1 mg/dL Glucose 138 (H) 74 - 106 mg/dL BUN 89 (HH) 7 - 22 mg/dL Creatinine 13.64 (H) 0.70 - 1.30 mg/dL BUN/Creatinine 7 (L) 8 - 20 Albumin 3.1 (L) 3.4 - 5.0 g/dL Alkaline Phosphatase 178 (H) 27 - 136 U/L ALT 8 (L) 16 - 61 U/L AST 17 5 - 37 U/L Total Bilirubin 0.5 0.2 - 1.2 mg/dL Protein, Total 6.3 (L) 6.4 - 8.2 gm/dL Anion Gap 20 9 - 20 A/G Ratio 1.0 (L) 1.1 - 2.5 Globulin 3.2 1.5 - 4.5 g/dL Osmolality Calc 301.4 eGFR (mL/min/1.73m2) 4 (L) >=60 mL/min/1.73m2 Phosphorus Status: Abnormal Collection Time: 06/29/24 12:21 PM Result Value Ref Range Phosphorus 10.1 (H) 2.5 - 4.9 mg/dL Magnesium Status: Normal Collection Time: 06/29/24 12:21 PM Result Value Ref Range Magnesium 1.7 1.5 - 2.4 mg/dL Glucose, Nova Meter Status: Abnormal Collection Time: 06/29/24 8:42 PM Result Value Ref Range POC-GLUCOSE 127 (H) 70 - 110 mg/dL Operations And Maintenance Supervisor [id number] Comprehensive metabolic panel Status: Abnormal Collection Time: 06/29/24 8:56 PM Result Value Ref Range Sodium 132 (L) 136 - 146 meq/L Potassium 3.9 3.5 - 5.1 meq/L Chloride 100 (L) 102 - 112 meq/L CO2 21 21 - 32 meq/L Calcium 8.5 8.4 - 10.1 mg/dL Glucose 130 (H) 74 - 106 mg/dL BUN 43 (H) 7 - 22 mg/dL Creatinine 7.61 (H) 0.70 - 1.30 mg/dL BUN/Creatinine 6 (L) 8 - 20 Albumin 3.5 3.4 - 5.0 g/dL Alkaline Phosphatase 199 (H) 27 - 136 U/L ALT 11 (L) 16 - 61 U/L AST 19 5 - 37 U/L Total Bilirubin 0.5 0.2 - 1.2 mg/dL Protein, Total 7.3 6.4 - 8.2 gm/dL Anion Gap 15 9 - 20 A/G Ratio 0.9 (L) 1.1 - 2.5 Globulin 3.8 1.5 - 4.5 g/dL Osmolality Calc 277.1 eGFR (mL/min/1.73m2) 8 (L) >=60 mL/min/1.73m2 Comprehensive metabolic panel Status: Abnormal Collection Time: 06/30/24 1:12 AM Result Value Ref Range Sodium 133 (L) 136 - 146 meq/L Potassium 4.3 3.5 - 5.1 meq/L Chloride 105 102 - 112 meq/L CO2 20 (L) 21 - 32 meq/L Calcium 7.6 (L) 8.4 - 10.1 mg/dL Glucose 115 (H) 74 - 106 mg/dL BUN 46 (H) 7 - 22 mg/dL Creatinine 8.46 (H) 0.70 - 1.30 mg/dL BUN/Creatinine 5 (L) 8 - 20 Albumin 3.1 (L) 3.4 - 5.0 g/dL Alkaline Phosphatase 181 (H) 27 - 136 U/L ALT 8 (L) 16 - 61 U/L AST 18 5 - 37 U/L Total Bilirubin 0.4 0.2 - 1.2 mg/dL Protein, Total 6.8 6.4 - 8.2 gm/dL Anion Gap 12 9 - 20 A/G Ratio 0.8 (L) 1.1 - 2.5 Globulin 3.7 1.5 - 4.5 g/dL Osmolality Calc 279.2 eGFR (mL/min/1.73m2) 7 (L) >=60 mL/min/1.73m2 Glucose, Nova Meter Status: None Collection Time: 06/30/24 5:13 AM Result Value Ref Range POC-GLUCOSE 95 70 - 110 mg/dL Operations And Maintenance Supervisor [id number] Comprehensive metabolic panel Status: Abnormal Collection Time: 06/30/24 5:15 AM Result Value Ref Range Sodium 132 (L) 136 - 146 meq/L Potassium 4.3 3.5 - 5.1 meq/L Chloride 103 102 - 112 meq/L CO2 21 21 - 32 meq/L Calcium 8.1 (L) 8.4 - 10.1 mg/dL Glucose 100 74 - 106 mg/dL BUN 49 (H) 7 - 22 mg/dL Creatinine 9.56 (H) 0.70 - 1.30 mg/dL BUN/Creatinine 5 (L) 8 - 20 Albumin 3.2 (L) 3.4 - 5.0 g/dL Alkaline Phosphatase 190 (H) 27 - 136 U/L ALT 7 (L) 16 - 61 U/L AST 14 5 - 37 U/L Total Bilirubin 0.5 0.2 - 1.2 mg/dL Protein, Total 7.0 6.4 - 8.2 gm/dL Anion Gap 12 9 - 20 A/G Ratio 0.8 (L) 1.1 - 2.5 Globulin 3.8 1.5 - 4.5 g/dL Osmolality Calc 277.6 eGFR (mL/min/1.73m2) 6 (L) >=60 mL/min/1.73m2 Radiology Radiology Results (last day) No results found for the last 24 hours. Microbiology: Microbiology Results (last 7 days) No results found for the last 168 hours. ASSESSMENT: Pulmonary JC, uses Bipap at night Non-smoker Cardiac Hypertension-poorly controlled Renal ESRD, HD x5 years. Now with malfunctioning left subclavian Talidex catheter history of multiple HD catheters in R and L IJ Hyperkalemia Hyperphosphatemia Acute metabolic acidosis ID History of liver transplant Immunocompromised, on Cellcept and cyclosporine GI KIM, s/p liver transplant 2018 Hepatitis Endocrine DM II Neuro Alert and oriented PLAN: 2 L nasal cannula: Underlying obstructive sleep apnea CPAP at night as needed during the day. He has his old machine. Repeat AB.11, pCO2 42, pO2 104 Likely acute metabolic acidosis related to renal failure, cannot rule out obstructive sleep apnea with stable ventilation syndrome CXR cardiomegaly pulmonary vascular congestion. Need of volume removal with HD. Uncontrolled HTN, requiring HD volume removal, Coreg/Procardia./Hydralazine patient denies any chest pain. End-stage renal disease, left Talidex catheter not working, IR consulted for guidewire troubleshooting and working left tunneled dialysis catheter, minimal, temporary right femoral Vas-Cath inserted,HD started 06/28/2024, oxygenation improved, mental status improved, blood pressure improved Discussed with nephrology, patient has recurrent malfunctioning dialysis catheter from the left side cannot rule out intravascular stenosis. Patient scheduled to have left lower extremity fistula July 2024 For HD again today from the left than on the schedule of HD without trouble, then we will remove right femoral central line Not on antibiotic, no leukocytosis.History of hep B, on antiviral. Prior liver transplant on immune compromise with immunosuppressive medication. GI/nutrition: Taking p.o. renal diet. Heparin subcu DVT prophylaxis GI prophylax pantoprazole. CODE STATUS full. Dispo: Medical with telemetry. Versus discharge planning home. Pulmonary critical care team sign off please call for questions Prognosis/guarded Case discussed during round. I have personally evaluated the patient and performed a [id number] diagnostic evaluation on this patient; I have reviewed history, performed physical examination, reviewed laboratory studies. , andreviewed images independent of radiologist. I have actively directed the medical care, formulated assessemnt and plan of care. Patient requires a high complexity of decision making for assessment. 40 minutes critical care time was spent. Voice scuba diving instructor technology (ApplyMap) is used for dictation of this note and sound-alike words might be erroneously placed despite reviewing the note for accuracy.Errors in dictation may reflect use of voice recognition software and not all errors in scuba diving instructor may have been detectedprior to signing ARCH AFFILIATE * Karishma Hodge MD - 06/29/2024 9:49 AM EST Subjective No acute events overnight. No new complain Review of Systems No CP, SOA, N/V, fever, chills or rash Objective Last Recorded Vitals Blood pressure (!) 142/65, pulse 99, temperature 97.8 ??F (36.6 ??C), temperature source Axillary, resp. rate (!) 53, weight (!) 140.2 kg (309 lb 1.4 oz), SpO2 (!) 89%. Physical Exam Gen: Alert, NAD HEENT: NC, AT Neck: Supple, no JVD Lungs: CTA. Non labored, symetrical chest expansion CVS: SI/S2 audible. RRR, No M/G noted Abd: soft, NT, ND, BS + Ext: + Pedal edema , no cyanosis DIRECTORY CLERK: Alert, No focal deficit noted grossly Psy: Cooperative Labs: Results for orders placed or performed during the hospital encounter of 06/27/24 (from the past 24 hours) Comprehensive metabolic panel Status: Abnormal Collection Time: 06/28/24 10:19 AM Result Value Ref Range Sodium 136 136 - 146 meq/L Potassium 4.6 3.5 - 5.1 meq/L Chloride 104 102 - 112 meq/L CO2 24 21 - 32 meq/L Calcium 7.8 (L) 8.4 - 10.1 mg/dL Glucose 98 74 - 106 mg/dL BUN 76 (H) 7 - 22 mg/dL Creatinine 11.60 (H) 0.70 - 1.30 mg/dL BUN/Creatinine 7 (L) 8 - 20 Albumin 3.8 3.4 - 5.0 g/dL Alkaline Phosphatase 228 (H) 27 - 136 U/L ALT 12 (L) 16 - 61 U/L AST 13 5 - 37 U/L Total Bilirubin 0.5 0.2 - 1.2 mg/dL Protein, Total 7.5 6.4 - 8.2 gm/dL Anion Gap 13 9 - 20 A/G Ratio 1.0 (L) 1.1 - 2.5 Globulin 3.7 1.5 - 4.5 g/dL Osmolality Calc 294.5 eGFR (mL/min/1.73m2) 5 (L) >=60 mL/min/1.73m2 CBC with automated diff Status: Abnormal Collection Time: 06/28/24 10:19 AM Result Value Ref Range WBC 7.5 4.2 - 9.1 K/??L RBC 3.11 (L) 4.63 - 6.08 M/??L Hemoglobin 10.1 (L) 13.7 - 17.5 GM/DL Hematocrit 32.3 (L) 40.1 - 51.0 % MCV 104 (H) 79 - 92 fL MCH 32.5 (H) 25.7 - 32.2 pg MCHC 31.3 (L) 32.3 - 36.5 GM/DL RDW 15.6 (H) 11.6 - 14.4 % Platelets 232 140 - 375 K/CU MM MPV 9.7 9.4 - 12.4 fL % Neutros 70 (H) 34 - 68 % % Lymphs 16 (L) 22 - 53 % % Monos 5 5 - 12 % % Eos 2 1 - 7 % % Baso 0 0 - 1 % NRBC Absolute 0.03 (H) 0 - 0.012 K/ul # Neutros 5.26 1.78 - 5.38 K/??L # Lymphs 1.21 (L) 1.32 - 3.57 K/??L # Monos 0.40 0.30 - 0.82 K/??L # Eos 0.14 0.04 - 0.54 K/??L # Baso 0.03 0.01 - 0.08 K/??L Immature Granulocytes-Relative 6.50 (H) 0.01 - 0.43 % # IG 0.49 (H) 0.00 - 0.03 K/uL Magnesium Status: Normal Collection Time: 06/28/24 10:19 AM Result Value Ref Range Magnesium 1.9 1.5 - 2.4 mg/dL Phosphorus Status: Abnormal Collection Time: 06/28/24 10:19 AM Result Value Ref Range Phosphorus 7.4 (H) 2.5 - 4.9 mg/dL Lactic Acid with reflex (SJ) Status: Abnormal Collection Time: 06/28/24 10:19 AM Result Value Ref Range Lactic Acid Level (mmol/L) 0.3 (L) 0.4 - 2.0 mmol/L Comprehensive metabolic panel Status: Abnormal Collection Time: 06/28/24 7:10 PM Result Value Ref Range Sodium 136 136 - 146 meq/L Potassium 4.5 3.5 - 5.1 meq/L Chloride 102 102 - 112 meq/L CO2 20 (L) 21 - 32 meq/L Calcium 8.3 (L) 8.4 - 10.1 mg/dL Glucose 106 74 - 106 mg/dL BUN 77 (H) 7 - 22 mg/dL Creatinine 13.14 (H) 0.70 - 1.30 mg/dL BUN/Creatinine 6 (L) 8 - 20 Albumin 3.5 3.4 - 5.0 g/dL Alkaline Phosphatase 205 (H) 27 - 136 U/L ALT 12 (L) 16 - 61 U/L AST 17 5 - 37 U/L Total Bilirubin 0.5 0.2 - 1.2 mg/dL Protein, Total 7.1 6.4 - 8.2 gm/dL Anion Gap 19 9 - 20 A/G Ratio 1.0 (L) 1.1 - 2.5 Globulin 3.6 1.5 - 4.5 g/dL Osmolality Calc 295.3 eGFR (mL/min/1.73m2) 4 (L) >=60 mL/min/1.73m2 Comprehensive metabolic panel Status: Abnormal Collection Time: 06/28/24 11:34 PM Result Value Ref Range Sodium 135 (L) 136 - 146 meq/L Potassium 4.6 3.5 - 5.1 meq/L Chloride 102 102 - 112 meq/L CO2 19 (L) 21 - 32 meq/L Calcium 8.3 (L) 8.4 - 10.1 mg/dL Glucose 133 (H) 74 - 106 mg/dL BUN 81 (HH) 7 - 22 mg/dL Creatinine 13.75 (H) 0.70 - 1.30 mg/dL BUN/Creatinine 6 (L) 8 - 20 Albumin 3.4 3.4 - 5.0 g/dL Alkaline Phosphatase 201 (H) 27 - 136 U/L ALT 11 (L) 16 - 61 U/L AST 16 5 - 37 U/L Total Bilirubin 0.5 0.2 - 1.2 mg/dL Protein, Total 7.0 6.4 - 8.2 gm/dL Anion Gap 19 9 - 20 A/G Ratio 0.9 (L) 1.1 - 2.5 Globulin 3.6 1.5 - 4.5 g/dL Osmolality Calc 296.4 eGFR (mL/min/1.73m2) 4 (L) >=60 mL/min/1.73m2 Glucose, Nova Meter Status: Abnormal Collection Time: 06/29/24 6:25 AM Result Value Ref Range POC-GLUCOSE 131 (H) 70 - 110 mg/dL Operations And Maintenance Supervisor [id number] Comprehensive metabolic panel Status: Abnormal Collection Time: 06/29/24 6:26 AM Result Value Ref Range Sodium 133 (L) 136 - 146 meq/L Potassium 4.6 3.5 - 5.1 meq/L Chloride 100 (L) 102 - 112 meq/L CO2 22 21 - 32 meq/L Calcium 8.2 (L) 8.4 - 10.1 mg/dL Glucose 129 (H) 74 - 106 mg/dL BUN 88 (HH) 7 - 22 mg/dL Creatinine 14.20 (H) 0.70 - 1.30 mg/dL BUN/Creatinine 6 (L) 8 - 20 Albumin 3.4 3.4 - 5.0 g/dL Alkaline Phosphatase 204 (H) 27 - 136 U/L ALT 9 (L) 16 - 61 U/L AST 15 5 - 37 U/L Total Bilirubin 0.7 0.2 - 1.2 mg/dL Protein, Total 7.0 6.4 - 8.2 gm/dL Anion Gap 16 9 - 20 A/G Ratio 0.9 (L) 1.1 - 2.5 Globulin 3.6 1.5 - 4.5 g/dL Osmolality Calc 295.0 eGFR (mL/min/1.73m2) 4 (L) >=60 mL/min/1.73m2 IR CENTRAL VENOUS Narrative: COMPLETE REPLACEMENT TUNNELED CATHETER, SVC angiogram and [...] was preserved after removal of catheter. An 8-Bolivian sheath was then placed in the left [...] 2-0 nylon suture. Procedure was well tolerated. Impression: 1. Successful replacement of new tunneled left jugular dialysis catheter. 2. Central venography shows fibrin sleeve within the left innominate vein and SVC. 3. Balloon angioplasty performed of the fibrin sleeve with successful disruption. 4. Fluoroscopic guidance utilized with images acquired. 5. IV conscious sedation used. Recent Labs Lab(s) Units 06/29/24 0626 06/29/24 0625 06/28/24 2334 06/28/24 1910 06/28/24 1019 NA meq/L 133* -- 135* 136 136 K meq/L 4.6 -- 4.6 4.5 4.6 CL meq/L 100* -- 102 102 104 CO2 meq/L 22 -- 19* 20* 24 BUN mg/dL 88* -- 81* 77* 76* CREATININE mg/dL 14.20* -- 13.75* 13.14* 11.60* ALBUMIN g/dL 3.4 -- 3.4 3.5 3.8 GLUCOSE mg/dL 129* 131* 133* 106 98 CALCIUM mg/dL 8.2* -- 8.3* 8.3* 7.8* WBC K/??L -- -- -- -- 7.5 PLT K/CU MM -- -- -- -- 232 HGB GM/DL -- -- -- -- 10.1* Assessment 1- ESRD - HD - Home dialysis - 4 times a week. TDC exchanged yesterday 2- Hyponatremia 3- Anemia of chronic disease 4- KIM 5- DM type II Plan: - HD today, UF as tolerated - Renal diet. - MINERVA with HD - Electrolytes will be corrected with HD Discussed with patient, family and RN at bedside. ARCH AFFILIATE * Huyen Levi MD - 06/29/2024 9:30 AM EST [facility] HOSPITALIST PROGRESS NOTE Patient: Aiden Stauffer Jr. Date: 06/29/2024 Subjective HPI: Patient comes from the outside facility. He has end-stage kidney disease on hemodialysis. He presented outside facility with complaints of wheezing and weakness. Patient have been having difficulty with his hemodialysis access catheter which seems to be malfunctioning. He was unable to receive hemod ialysis. In the ED outside facility found to have potassium of 7.8, BUN of 112, serum creatinine 17, CO2 of 11, and phosphate level of greater than 12. In this context our service is asked to accept him. Transferring physician already spoken with the nephrology service on-call as well as critical care service butadiene convertor operator. Critical care agreed to replace hemodialysis access catheter emergently. HOSPITAL FOLLOW-UP: 06/28/2024 Saw the patient today after dialysis and the report remove 3 L fluid patient feel much better and the potassium level down to 4.6 and the patient still feel cough and congestion patient still very anxious and on Precedex, and also complained over the congestion and cough 06/29 Saw patient today in the morning talk to patient and the patient alert awake and on the 2 L oxygen very anxious plan for dialysis today No chest pain no trouble breathing Assessment Malfunctioning hemodialysis access catheter with known end-stage kidney disease maintained on hemodialysis, followed by [facility] Critical hyperkalemia-on admission much resolved Severe anxiety Marked acute metabolic acidosis-much better Marked hyperphosphatemia Type 2 diabetes mellitus History of Kim liver cirrhosis with prior liver transplant and immunocompromise status Umbilical hernia seems to be asymptomatic Morbid obesity/JC PLAN: Will continue dialysis today Close watch potassium level BP control with Coreg and nifedipine Continue cyclosprine and cellcept for liver transplant patient Heparin subcu for DVT prophylaxis Insulin sliding scale And will add Xanax as needed Discussed with renal service will dialysis today Discussed the patient also ICU nurse Signed: 06/29/2024 Review of System No fever, no chest pain. Has SOB, no n/v/d Objective Vitals: Temp: [97.6 ??F (36.4 ??C)-98 ??F (36.7 ??C)] 97.6 ??F (36.4 ??C) Pulse: [94-106] 99 Resp: [10-53] 25 BP: (125-217)/(65-113) 140/80 Intake/Output: Intake/Output Summary (Last 24 hours) at 06/29/2024 1630 Last data filed at 06/29/2024 1210 Gross per 24 hour Intake 720 ml Output -- Net 720 ml Physical exam: GENERAL: The patient is anxiety , but awake Eyes: Pupils PERRLA. ENT: No discharge from ear, nose, throat NECK: No JVD. No mass. PULMONARY: Bilateral breath sounds equal. Scattered rhonchi. Palpation normal. Percussion normal. CVS SYSTEM: S1, S2 normal. No murmur. No click. No S3 or S4. ABDOMEN: Soft. No hernia. Bowel sounds normal. No rebound. MUSCULOSKELETAL: Head and neck, no trauma. Bilateral legs + edema. SKIN: No rash. No ulcerative change NEUROLOGIC: The patient is awake, but is anxiety and move legs and arms freely, no focal neuro deficit Psychiatry: positive anxiety Labs: Results for orders placed or performed during the hospital encounter of 06/27/24 (from the past 24 hours) Comprehensive metabolic panel Status: Abnormal Collection Time: 06/28/24 7:10 PM Result Value Ref Range Sodium 136 136 - 146 meq/L Potassium 4.5 3.5 - 5.1 meq/L Chloride 102 102 - 112 meq/L CO2 20 (L) 21 - 32 meq/L Calcium 8.3 (L) 8.4 - 10.1 mg/dL Glucose 106 74 - 106 mg/dL BUN 77 (H) 7 - 22 mg/dL Creatinine 13.14 (H) 0.70 - 1.30 mg/dL BUN/Creatinine 6 (L) 8 - 20 Albumin 3.5 3.4 - 5.0 g/dL Alkaline Phosphatase 205 (H) 27 - 136 U/L ALT 12 (L) 16 - 61 U/L AST 17 5 - 37 U/L Total Bilirubin 0.5 0.2 - 1.2 mg/dL Protein, Total 7.1 6.4 - 8.2 gm/dL Anion Gap 19 9 - 20 A/G Ratio 1.0 (L) 1.1 - 2.5 Globulin 3.6 1.5 - 4.5 g/dL Osmolality Calc 295.3 eGFR (mL/min/1.73m2) 4 (L) >=60 mL/min/1.73m2 Comprehensive metabolic panel Status: Abnormal Collection Time: 06/28/24 11:34 PM Result Value Ref Range Sodium 135 (L) 136 - 146 meq/L Potassium 4.6 3.5 - 5.1 meq/L Chloride 102 102 - 112 meq/L CO2 19 (L) 21 - 32 meq/L Calcium 8.3 (L) 8.4 - 10.1 mg/dL Glucose 133 (H) 74 - 106 mg/dL BUN 81 (HH) 7 - 22 mg/dL Creatinine 13.75 (H) 0.70 - 1.30 mg/dL BUN/Creatinine 6 (L) 8 - 20 Albumin 3.4 3.4 - 5.0 g/dL Alkaline Phosphatase 201 (H) 27 - 136 U/L ALT 11 (L) 16 - 61 U/L AST 16 5 - 37 U/L Total Bilirubin 0.5 0.2 - 1.2 mg/dL Protein, Total 7.0 6.4 - 8.2 gm/dL Anion Gap 19 9 - 20 A/G Ratio 0.9 (L) 1.1 - 2.5 Globulin 3.6 1.5 - 4.5 g/dL Osmolality Calc 296.4 eGFR (mL/min/1.73m2) 4 (L) >=60 mL/min/1.73m2 Glucose, Nova Meter Status: Abnormal Collection Time: 06/29/24 6:25 AM Result Value Ref Range POC-GLUCOSE 131 (H) 70 - 110 mg/dL Operations And Maintenance Supervisor [id number] Comprehensive metabolic panel Status: Abnormal Collection Time: 06/29/24 6:26 AM Result Value Ref Range Sodium 133 (L) 136 - 146 meq/L Potassium 4.6 3.5 - 5.1 meq/L Chloride 100 (L) 102 - 112 meq/L CO2 22 21 - 32 meq/L Calcium 8.2 (L) 8.4 - 10.1 mg/dL Glucose 129 (H) 74 - 106 mg/dL BUN 88 (HH) 7 - 22 mg/dL Creatinine 14.20 (H) 0.70 - 1.30 mg/dL BUN/Creatinine 6 (L) 8 - 20 Albumin 3.4 3.4 - 5.0 g/dL Alkaline Phosphatase 204 (H) 27 - 136 U/L ALT 9 (L) 16 - 61 U/L AST 15 5 - 37 U/L Total Bilirubin 0.7 0.2 - 1.2 mg/dL Protein, Total 7.0 6.4 - 8.2 gm/dL Anion Gap 16 9 - 20 A/G Ratio 0.9 (L) 1.1 - 2.5 Globulin 3.6 1.5 - 4.5 g/dL Osmolality Calc 295.0 eGFR (mL/min/1.73m2) 4 (L) >=60 mL/min/1.73m2 Glucose, Nova Meter Status: Abnormal Collection Time: 06/29/24 12:18 PM Result Value Ref Range POC-GLUCOSE 130 (H) 70 - 110 mg/dL Operations And Maintenance Supervisor [id number] Comprehensive metabolic panel Status: Abnormal Collection Time: 06/29/24 12:21 PM Result Value Ref Range Sodium 136 136 - 146 meq/L Potassium 4.7 3.5 - 5.1 meq/L Chloride 102 102 - 112 meq/L CO2 19 (L) 21 - 32 meq/L Calcium 7.3 (L) 8.4 - 10.1 mg/dL Glucose 138 (H) 74 - 106 mg/dL BUN 89 (HH) 7 - 22 mg/dL Creatinine 13.64 (H) 0.70 - 1.30 mg/dL BUN/Creatinine 7 (L) 8 - 20 Albumin 3.1 (L) 3.4 - 5.0 g/dL Alkaline Phosphatase 178 (H) 27 - 136 U/L ALT 8 (L) 16 - 61 U/L AST 17 5 - 37 U/L Total Bilirubin 0.5 0.2 - 1.2 mg/dL Protein, Total 6.3 (L) 6.4 - 8.2 gm/dL Anion Gap 20 9 - 20 A/G Ratio 1.0 (L) 1.1 - 2.5 Globulin 3.2 1.5 - 4.5 g/dL Osmolality Calc 301.4 eGFR (mL/min/1.73m2) 4 (L) >=60 mL/min/1.73m2 Phosphorus Status: Abnormal Collection Time: 06/29/24 12:21 PM Result Value Ref Range Phosphorus 10.1 (H) 2.5 - 4.9 mg/dL Magnesium Status: Normal Collection Time: 06/29/24 12:21 PM Result Value Ref Range Magnesium 1.7 1.5 - 2.4 mg/dL Radiology: Radiology Results (last 3 days) Procedure Component Value Units Date/Time IR CENTRAL VENOUS [[id number]] Collected: 06/28/24 1804 Order Status: Completed Updated: 06/29/24730 Narrative: COMPLETE REPLACEMENT TUNNELED CATHETER, SVC angiogram and [...] was preserved after removal of catheter. An 8-Bolivian sheath was then placed in the left [...] 2-0 nylon suture. Procedure was well tolerated. Impression: 1. Successful replacement of new tunneled left jugular dialysis catheter. 2. Central venography shows fibrin sleeve within the left innominate vein and SVC. 3. Balloon angioplasty performed of the fibrin sleeve with successful disruption. 4. Fluoroscopic guidance utilized with images acquired. 5. IV conscious sedation used. XR chest AP portable [[id number]] Collected: 06/28/24 1026 Order Status: Completed Updated: 06/28/24 1225 Narrative: PORTABLE CHEST HISTORY: Acute shortness of breath. COMPARISON: None. FINDINGS: The heart is enlarged in size with vascular congestion. The mediastinum is unremarkable. The lungs are clear. There is no pneumothorax. There is a left IJ dialysis catheter. Impression: Cardiomegaly with vascular congestion. Images reviewed, interpreted, and dictated by Dr. Rohith Hogue. Transcribed by Mandi Villaseñor PA-C. XR chest AP portable [[id number]] Collected: 06/28/24 0805 Order Status: Completed Updated: 06/28/2448 Narrative: PORTABLE CHEST 06/28/2024 4:18 AM HISTORY: Acute shortness of breath. COMPARISON: June 27, 2024. FINDINGS: The heart is normal in size . The mediastinum is unremarkable . There is increasing pulmonary vascular congestion. There is no significant pleural effusion. There is no pneumothorax . Left-sided dialysis catheter is unchanged. Impression: Findings suggestive of mild congestive heart failure. Images reviewed, interpreted, and dictated by Dr. Carlos Eduardo Jimenez. Transcribed by Valentin Davis PA-C MICROBIOLOGY: Microbiology Results (last 7 days) No results found for the last 168 hours. Medications: Scheduled Meds: aspirin 81 mg oral Daily 81 mg at 06/29/24 0746 calcitRIOL 0.25 mcg oral Daily 0.25 mcg at 06/29/24 0931 carvediloL 25 mg oral BID w/breakfast & dinner 25 mg at 06/29/24 0745 cinacalcet 180 mg oral Daily with dinner 180 mg at 06/28/24 1845 cycloSPORINE 100 mg oral q AM 100 mg at 06/29/24 0932 cycloSPORINE 125 mg oral QPM 125 mg at 06/28/24 1848 [START ON 07/05/2024] entecavir 0.5 mg oral Weekly fluticasone propionate 2 spray each nostril Daily 2 spray at 06/29/24 0933 gabapentin 100 mg oral BID 100 mg at 06/29/24 0745 heparin 5,000 Units subcutaneous Q12H 5,000 Units at 06/29/24 0746 insulin regular 0-18 Units subcutaneous Q6H TALIB mycophenolate mofetil 250 mg oral BID 250 mg at 06/29/24 0515 NIFEdipine 90 mg oral Daily 90 mg at 06/29/24 0756 pantoprazole 40 mg oral Daily Continuous Infusions: Current Facility-Administered Medications Medication Dose Route Frequency Provider Last Rate Last Admin acetaminophen (TYLENOL) tablet 1,000 mg 1,000 mg oral Q6H PRN Jay Strickland MD 1,000 mg at 06/28/242023 ALPRAZolam (XANAX) tablet 0.5 mg 0.5 mg oral BID PRN Jay Strickland MD 0.5 mg at 06/28/242156 aspirin chewable tablet 81 mg 81 mg oral Daily Jay Strickland MD 81 mg at 06/29/24 0746 calcitRIOL (ROCALTROL) capsule 0.25 mcg 0.25 mcg oral Daily Huyen Levi MD 0.25 mcg at 06/29/24 0931 carvediloL (COREG) tablet 25 mg 25 mg oral BID w/breakfast & dinner Jay Strickland MD 25 mg at 06/29/24 0745 cinacalcet (SENSIPAR) tablet 180 mg 180 mg oral Daily with dinner Huyen Levi MD 180 mg at 06/28/24 1845 cycloSPORINE (SandIMMUNE) capsule 100 mg 100 mg oral q AM Huyen Levi MD 100 mg at 06/29/24 0932 cycloSPORINE (SandIMMUNE) capsule 125 mg 125 mg oral QPM Huyen Levi MD 125 mg at 06/28/24 184 dextrose 50% (D50W) injection 25 g 25 g intravenous PRN Jay Strickland MD diphenhydrAMINE (BENADRYL) injection 25 mg 25 mg intravenous Q6H PRN Mandi Kearney PA-C 25 mg at 06/29/24 1109 docusate sodium (COLACE) capsule 100 mg 100 mg oral BID PRN Jay Strickland MD [START ON 07/05/2024] entecavir (BARACLUDE) tablet 0.5 mg 0.5 mg oral Weekly Huyen Levi MD fluticasone propionate (FLONASE) 50 mcg/actuation nasal spray 2 spray 2 spray each nostril Daily Huyen Levi MD 2 spray at 06/29/24 0933 gabapentin (NEURONTIN) capsule 100 mg 100 mg oral BID Jay Strickland MD 100 mg at 06/29/24 0745 glucagon injection 1 mg 1 mg intraMUSCULAR PRN Jay Strickland MD glucose chew tab 16 g 16 g oral PRN Jay Strickland MD heparin injection 5,000 Units 5,000 Units subcutaneous Q12H Jay Strickland MD 5,000 Units at 06/29/24 0746 hydrALAZINE (APRESOLINE) injection 10 mg 10 mg intravenous Q6H PRN Jay Strickland MD 10 mg at 330 insulin regular (HUMULIN R,NOVOLIN R) injection 0-18 Units subcutaneous Q6H [facility] Jay Strickland MD ipratropium-albuteroL (DUO-NEB) 0.5 mg-3 mg(2.5 mg base)/3 mL nebulizer solution 3 mL 3 mL nebulization Q6H PRN Jay Strickland MD melatonin tablet 3 mg 3 mg oral Every Night PRN Jay Strickland MD morphine injection 2 mg 2 mg intravenous Q4H PRN Jay Strickland MD 2 mg at 06/29/24 0941 mycophenolate mofetil (CELLCEPT) capsule 250 mg 250 mg oral BID Jay Strickland MD 250 mg at 06/29/24 0515 naloxone (NARCAN) injection 0.2 mg 0.2 mg intravenous Q2 Min PRN Jay Strickland MD NIFEdipine (PROCARDIA-XL) 24 hr tablet 90 mg 90 mg oral Daily Jay Strickland MD 90 mg at 06/29/24 0756 ondansetron (ZOFRAN-ODT) disintegrating tablet 4 mg 4 mg oral Q8H PRN Jay Strickland MD Or ondansetron PF (ZOFRAN) injection 4 mg 4 mg intravenous Q8H PRN Jay Strickland MD oxyCODONE (ROXICODONE) immediate release tablet 5 mg 5 mg oral Q4H PRN Jay Strickland MD 5 mg at 06/28/24 1442 pantoprazole (PROTONIX) EC tablet 40 mg 40 mg oral Daily Huyen Levi MD polyethylene glycol (GLYCOLAX) packet 17 g 17 g oral Daily PRN Jay Strickland MD sodium chloride flush 10 mL 10 mL intravenous PRN Jay Strickland MD PRN Meds: @MEDSPRN@ ApplyMap is used for dictation of this note and sound-alike words might be erroneously placed despite reviewing the note for accuracy. Errors in dictation may reflect use of voice recognitionsoftware and not all errors in scuba diving instructor may have been detected prior to signing. ARCH AFFILIATE * Irasema Wylie PT - 06/29/2024 8:54 AM EST Images from the original note were not included. Inpatient Physical Therapy Attempt to Treat Patient Name: Aiden Stauffer Jr. Birthday: 1975 Date of Attempt: 06/29/2024 Per RNDanyelle, PT is to HOLD eval today as pt has a femoral line and may need dialysis today per chart. PT will try back for mobility eval tomorrow. Electronically signed by Irasema Wylie PT - 06/29/2024 - 10:45 AM EST ARCH AFFILIATE * Frank Zaragoza MD - 06/29/2024 8:25 AM EST Consults PULMONARY AND CRITICAL CARE Consult Note Date of Service: 06/29/2024 Time: 12:28 AM HPI: This is a 49 y.o. year old male with past medical history significant for ESRD on HD 3-4x/week, DM II, hepatitis, hypertension, KIM s/p liver transplant 2018, JC wears Bipap at night. Patient presented to OSH with complaints of wheezing and weakness. He has not received HD in almost a week. He was found to have malfunctioning HD catheter. At OSH, labs were significant for potassium of 7.8, BUN 112, creatinine 17, CO2 11, phosphate >12. Patient was transferred to [facility] for higher level of care. Potassium was treated at OSH prior to transfer. Pulmonary is consulted for critical care management. Daily progress note: 06/29: Seen and examined, s/p HD, right femoral dialysis cath temporary inserted 07/03/2024, 2 L nasal cannula taking p.o. palpation controlled with Coreg/Procardia, IR consulted for troubleshooting left tunneled dialysis catheter yesterday, will resume HD. Nephrology, has a history on CPAP machinefor obstructive sleep apnea and uses home machine. PAST MEDICAL HISTORY: Past Medical History: Diagnosis Date Chronic kidney disease Diabetes mellitus (HCC) Hepatitis Hypertension KIM (nonalcoholic steatohepatitis) PAST SURGICAL HISTORY: Past Surgical History: Procedure Laterality Date AV FISTULA PLACEMENT TRANSPLANT,LIVER Allergies: Allergies Allergen Reactions Tacrolimus Other (See Comments) Anxious feeling and muscle jerking. TOLERATED ENVARSUS BETTER THAN PROGRAF. SOCIAL HISTORY: Social History Tobacco Use Smoking status: Never Smokeless tobacco: Never Substance Use Topics Alcohol use: Not Currently Drug use: Never FAMILY HISTORY: family history is not on file. Review of Systems Constitutional: Negative. Respiratory: Negative for shortness of breath. Cardiovascular: Negative for chest pain. Musculoskeletal: Positive for joint pain. All other systems reviewed and are negative. Vital Signs Temp: [97.8 ??F (36.6 ??C)-98.2 ??F (36.8 ??C)] 97.8 ??F (36.6 ??C) Pulse: [82-110] 99 Resp: [10-51] 36 BP: (125-221)/(65-113) 142/65 Current: Temp: 97.8 ??F (36.6 ??C) Pulse: 99 Resp: (!) 36 BP: (!) 142/65 SpO2: 98 % 24 Hour: BP Min: 125/76 Max: 221/95 Temp Min: 97.8 ??F (36.6 ??C) Max: 98.2 ??F (36.8 ??C) Pulse Min: 82 Max: 110 Resp Min: 10 Max: 51 SpO2 Min: 78 % Max: 100 % Intake/Output: I/O last 3 completed shifts: In: 840 [P.O.:840] Out: - Physical Exam Constitutional: General: He is not in acute distress. Appearance: He is obese. HENT: Head: Normocephalic. Nose: Nose normal. Mouth/Throat: Mouth: Mucous membranes are moist. Eyes: Pupils: Pupils are equal, round, and reactive to light. Cardiovascular: Rate and Rhythm: Normal rate and regular rhythm. Pulmonary: Breath sounds: No wheezing or rhonchi. Abdominal: Palpations: Abdomen is soft. Comments: Obese Musculoskeletal: Right lower leg: Edema present. Left lower leg: Edema present. Skin: General: Skin is warm and dry. Neurological: Mental Status: He is alert and oriented to person, place, and time. Psychiatric: Mood and Affect: Mood normal. Vent / O2 Management: LABS Results for orders placed or performed during the hospital encounter of 06/27/24 (from the past 24 hours) Comprehensive metabolic panel Status: Abnormal Collection Time: 06/28/24 10:19 AM Result Value Ref Range Sodium 136 136 - 146 meq/L Potassium 4.6 3.5 - 5.1 meq/L Chloride 104 102 - 112 meq/L CO2 24 21 - 32 meq/L Calcium 7.8 (L) 8.4 - 10.1 mg/dL Glucose 98 74 - 106 mg/dL BUN 76 (H) 7 - 22 mg/dL Creatinine 11.60 (H) 0.70 - 1.30 mg/dL BUN/Creatinine 7 (L) 8 - 20 Albumin 3.8 3.4 - 5.0 g/dL Alkaline Phosphatase 228 (H) 27 - 136 U/L ALT 12 (L) 16 - 61 U/L AST 13 5 - 37 U/L Total Bilirubin 0.5 0.2 - 1.2 mg/dL Protein, Total 7.5 6.4 - 8.2 gm/dL Anion Gap 13 9 - 20 A/G Ratio 1.0 (L) 1.1 - 2.5 Globulin 3.7 1.5 - 4.5 g/dL Osmolality Calc 294.5 eGFR (mL/min/1.73m2) 5 (L) >=60 mL/min/1.73m2 CBC with automated diff Status: Abnormal Collection Time: 06/28/24 10:19 AM Result Value Ref Range WBC 7.5 4.2 - 9.1 K/??L RBC 3.11 (L) 4.63 - 6.08 M/??L Hemoglobin 10.1 (L) 13.7 - 17.5 GM/DL Hematocrit 32.3 (L) 40.1 - 51.0 % MCV 104 (H) 79 - 92 fL MCH 32.5 (H) 25.7 - 32.2 pg MCHC 31.3 (L) 32.3 - 36.5 GM/DL RDW 15.6 (H) 11.6 - 14.4 % Platelets 232 140 - 375 K/CU MM MPV 9.7 9.4 - 12.4 fL % Neutros 70 (H) 34 - 68 % % Lymphs 16 (L) 22 - 53 % % Monos 5 5 - 12 % % Eos 2 1 - 7 % % Baso 0 0 - 1 % NRBC Absolute 0.03 (H) 0 - 0.012 K/ul # Neutros 5.26 1.78 - 5.38 K/??L # Lymphs 1.21 (L) 1.32 - 3.57 K/??L # Monos 0.40 0.30 - 0.82 K/??L # Eos 0.14 0.04 - 0.54 K/??L # Baso 0.03 0.01 - 0.08 K/??L Immature Granulocytes-Relative 6.50 (H) 0.01 - 0.43 % # IG 0.49 (H) 0.00 - 0.03 K/uL Magnesium Status: Normal Collection Time: 06/28/24 10:19 AM Result Value Ref Range Magnesium 1.9 1.5 - 2.4 mg/dL Phosphorus Status: Abnormal Collection Time: 06/28/24 10:19 AM Result Value Ref Range Phosphorus 7.4 (H) 2.5 - 4.9 mg/dL Lactic Acid with reflex (SJ) Status: Abnormal Collection Time: 06/28/24 10:19 AM Result Value Ref Range Lactic Acid Level (mmol/L) 0.3 (L) 0.4 - 2.0 mmol/L Comprehensive metabolic panel Status: Abnormal Collection Time: 06/28/24 7:10 PM Result Value Ref Range Sodium 136 136 - 146 meq/L Potassium 4.5 3.5 - 5.1 meq/L Chloride 102 102 - 112 meq/L CO2 20 (L) 21 - 32 meq/L Calcium 8.3 (L) 8.4 - 10.1 mg/dL Glucose 106 74 - 106 mg/dL BUN 77 (H) 7 - 22 mg/dL Creatinine 13.14 (H) 0.70 - 1.30 mg/dL BUN/Creatinine 6 (L) 8 - 20 Albumin 3.5 3.4 - 5.0 g/dL Alkaline Phosphatase 205 (H) 27 - 136 U/L ALT 12 (L) 16 - 61 U/L AST 17 5 - 37 U/L Total Bilirubin 0.5 0.2 - 1.2 mg/dL Protein, Total 7.1 6.4 - 8.2 gm/dL Anion Gap 19 9 - 20 A/G Ratio 1.0 (L) 1.1 - 2.5 Globulin 3.6 1.5 - 4.5 g/dL Osmolality Calc 295.3 eGFR (mL/min/1.73m2) 4 (L) >=60 mL/min/1.73m2 Comprehensive metabolic panel Status: Abnormal Collection Time: 06/28/24 11:34 PM Result Value Ref Range Sodium 135 (L) 136 - 146 meq/L Potassium 4.6 3.5 - 5.1 meq/L Chloride 102 102 - 112 meq/L CO2 19 (L) 21 - 32 meq/L Calcium 8.3 (L) 8.4 - 10.1 mg/dL Glucose 133 (H) 74 - 106 mg/dL BUN 81 (HH) 7 - 22 mg/dL Creatinine 13.75 (H) 0.70 - 1.30 mg/dL BUN/Creatinine 6 (L) 8 - 20 Albumin 3.4 3.4 - 5.0 g/dL Alkaline Phosphatase 201 (H) 27 - 136 U/L ALT 11 (L) 16 - 61 U/L AST 16 5 - 37 U/L Total Bilirubin 0.5 0.2 - 1.2 mg/dL Protein, Total 7.0 6.4 - 8.2 gm/dL Anion Gap 19 9 - 20 A/G Ratio 0.9 (L) 1.1 - 2.5 Globulin 3.6 1.5 - 4.5 g/dL Osmolality Calc 296.4 eGFR (mL/min/1.73m2) 4 (L) >=60 mL/min/1.73m2 Glucose, Nova Meter Status: Abnormal Collection Time: 06/29/24 6:25 AM Result Value Ref Range POC-GLUCOSE 131 (H) 70 - 110 mg/dL Operations And Maintenance Supervisor [phone] Comprehensive metabolic panel Status: Abnormal Collection Time: 06/29/24 6:26 AM Result Value Ref Range Sodium 133 (L) 136 - 146 meq/L Potassium 4.6 3.5 - 5.1 meq/L Chloride 100 (L) 102 - 112 meq/L CO2 22 21 - 32 meq/L Calcium 8.2 (L) 8.4 - 10.1 mg/dL Glucose 129 (H) 74 - 106 mg/dL BUN 88 (HH) 7 - 22 mg/dL Creatinine 14.20 (H) 0.70 - 1.30 mg/dL BUN/Creatinine 6 (L) 8 - 20 Albumin 3.4 3.4 - 5.0 g/dL Alkaline Phosphatase 204 (H) 27 - 136 U/L ALT 9 (L) 16 - 61 U/L AST 15 5 - 37 U/L Total Bilirubin 0.7 0.2 - 1.2 mg/dL Protein, Total 7.0 6.4 - 8.2 gm/dL Anion Gap 16 9 - 20 A/G Ratio 0.9 (L) 1.1 - 2.5 Globulin 3.6 1.5 - 4.5 g/dL Osmolality Calc 295.0 eGFR (mL/min/1.73m2) 4 (L) >=60 mL/min/1.73m2 Radiology Radiology Results (last day) Procedure Component Value Units Date/Time IR CENTRAL VENOUS [[id number]] Collected: 06/28/241803 Order Status: Completed Updated: 06/29/24730 Narrative: COMPLETE REPLACEMENT TUNNELED CATHETER, SVC angiogram and [...] was preserved after removal of catheter. An 8-Bolivian sheath was then placed in the left [...] 2-0 nylon suture. Procedure was well tolerated. Impression: 1. Successful replacement of new tunneled left jugular dialysis catheter. 2. Central venography shows fibrin sleeve within the left innominate vein and SVC. 3. Balloon angioplasty performed of the fibrin sleeve with successful disruption. 4. Fluoroscopic guidance utilized with images acquired. 5. IV conscious sedation used. XR chest AP portable [[id number]] Collected: 06/28/24 1026 Order Status: Completed Updated: 06/28/24 1225 Narrative: PORTABLE CHEST HISTORY: Acute shortness of breath. COMPARISON: None. FINDINGS: The heart is enlarged in size with vascular congestion. The mediastinum is unremarkable. The lungs are clear. There is no pneumothorax. There is a left IJ dialysis catheter. Impression: Cardiomegaly with vascular congestion. Images reviewed, interpreted, and dictated by Dr. Rohith Hogue. Transcribed by Mandi Villaseñor PA-C. XR chest AP portable [[id number]] Collected: 06/28/24 0805 Order Status: Completed Updated: 06/28/2448 Narrative: PORTABLE CHEST 06/28/2024 4:18 AM HISTORY: Acute shortness of breath. COMPARISON: June 27, 2024. FINDINGS: The heart is normal in size . The mediastinum is unremarkable . There is increasing pulmonary vascular congestion. There is no significant pleural effusion. There is no pneumothorax . Left-sided dialysis catheter is unchanged. Impression: Findings suggestive of mild congestive heart failure. Images reviewed, interpreted, and dictated by Dr. Carlos Eduardo Jimenez. Transcribed by Valentin Davis PA-C Microbiology: Microbiology Results (last 7 days) No results found for the last 168 hours. ASSESSMENT: Pulmonary JC, uses Bipap at night Non-smoker Cardiac Hypertension Renal ESRD, HD x5 years. Now with malfunctioning access. History of multiple HD catheters in R and L IJ Hyperkalemia Hyperphosphatemia Acute metabolic acidosis ID Immunocompromised, on Cellcept and cyclosporine GI KIM, s/p liver transplant 2018 Hepatitis Endocrine DM II Neuro Alert and oriented PLAN: 2 L nasal cannula: Underlying obstructive sleep apnea CPAP at night as needed during the day. Repeat AB.11, pCO2 42, pO2 104 Likely acute metabolic acidosis related to renal failure, cannot rule out obstructive sleep apnea with stable ventilation syndrome CXR cardiomegaly pulmonary vascular congestion. Need of volume removal with HD. Uncontrolled HTN, requiring HD volume removal, Coreg/Procardia. Patient denies any chest pain. End-stage renal disease, left Talidex catheter not working, IR consulted for guidewire troubleshooting and working left tunneled dialysis catheter, minimal, temporary right femoral Vas-Cath inserted,HD started 06/28/2024, oxygenation improved, mental status improved, blood pressure improved Discussed with nephrology, patient has recurrent malfunctioning dialysis catheter from the left side cannot rule out intravascular stenosis. Patient scheduled to have left lower extremity fistula July 2024 For HD again today from the left than on the schedule of HD without trouble, then we will remove right femoral central line Not on antibiotic, no leukocytosis.History of hep B, on antiviral. Prior liver transplant on immune compromise with immunosuppressive medication. GI/nutrition: Taking p.o. renal diet. Heparin subcu DVT prophylaxis GI prophylax pantoprazole. CODE STATUS full. Dispo: Medical with telemetry. Prognosis/guarded Case discussed during round. I have personally evaluated the patient and performed a [id number] diagnostic evaluation on this patient; I have reviewed history, performed physical examination, reviewed laboratory studies. , andreviewed images independent of radiologist. I have actively directed the medical care, formulated assessemnt and plan of care. Patient requires a high complexity of decision making for assessment. 40 minutes critical care time was spent. Voice scuba diving instructor technology ([employer]) is used for dictation of this note and sound-alike words might be erroneously placed despite reviewing the note for accuracy.Errors in dictation may reflect use of voice recognition software and not all errors in scuba diving instructor may have been detectedprior to signing ARCH AFFILIATE * Juaquin Weaver OTR/Mic - 06/28/2024 4:00 PM EST Images from the original note were not included. Inpatient Occupational Therapy Attempt to Treat Patient Name: Aiden Stauffer Jr. Birthday: 1975 Date of Attempt: 06/28/2024 Per PT, Nurse, Danyelle, requested pt be held this date secondary to femoral cath placed for dialysis.PT messaged Dr. Levi via [employer] chat regarding mobility restriction; awaiting reply. Will follow as schedule allows and pt is appropriate. Electronically signed by KODAK Chase/Mic - 06/28/2024 - 4:01 PM EST ARCH AFFILIATE * Chidi Ortiz PT - 06/28/2024 3:41 PM EST Images from the original note were not included. Inpatient Physical Therapy Attempt to Treat Patient Name: Aiden Stauffer Jr. Birthday: 1975 Date of Attempt: 06/28/2024 Attempted treat pt on this date, fabrice Bassett has pt on hold to recently having femoral cath placed for dialysis. Dr. Levi messaged via [employer] to confirm no absolute precautions for mobility, read and has not replied. Holding eval till response. Plan to mobilize with limited hip FLX. Will follow up as schedule permits. Electronically signed by Chidi Ortiz PT - 06/28/2024 - 3:41 PM EST ARCH AFFILIATE * Huyen Levi MD - 06/28/2024 3:23 PM EST [facility] HOSPITALIST PROGRESS NOTE Patient: Aiden Stauffer Jr. Date: 06/28/2024 Subjective HPI: Patient comes from the outside facility. He has end-stage kidney disease on hemodialysis. He presented outside facility with complaints of wheezing and weakness. Patient have been having difficulty with his hemodialysis access catheter which seems to be malfunctioning. He was unable to receive hemod ialysis. In the ED outside facility found to have potassium of 7.8, BUN of 112, serum creatinine 17, CO2 of 11, and phosphate level of greater than 12. In this context our service is asked to accept him. Transferring physician already spoken with the nephrology service on-call as well as critical care service butadiene convertor operator. Critical care agreed to replace hemodialysis access catheter emergently. 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 Umbilical hernia seems to be asymptomatic Morbid obesity/JC PLAN: Very complicated case and high risk patient But started dialysis patient feel much better Will continue dialysis tomorrow Close watch potassium level BP control with Coreg and nifedipine Continue cyclosprine and cellcept for liver transplant patient Heparin subcu for DVT prophylaxis Insulin sliding scale I will Try to wean off Precedex for anxiety And will add Xanax as needed Very complex case and high risk patient Critical care time 31 min I have long discussed with the patient also family and ICU nurse Needed close watching ICU today I also reviewed the chest x-ray by myself congestive heart failure but no pneumothorax Signed: 06/28/2024 Review of System No fever, no chest pain. Has SOB, no n/v/d Objective Vitals: Temp: [97.7 ??F (36.5 ??C)-98.2 ??F (36.8 ??C)] 98 ??F (36.7 ??C) Pulse: [82-110] 103 Resp: [12-41] 32 BP: (175-221)/(66-125) 204/89 Intake/Output: Intake/Output Summary (Last 24 hours) at 06/28/2024 1523 Last data filed at 06/28/2024 0735 Gross per 24 hour Intake 240 ml Output -- Net 240 ml Physical exam: GENERAL: The patient is anxiety , but awake Eyes: Pupils PERRLA. ENT: No discharge from ear, nose, throat NECK: No JVD. No mass. PULMONARY: Bilateral breath sounds equal. Scattered rhonchi. Palpation normal. Percussion normal. CVS SYSTEM: S1, S2 normal. No murmur. No click. No S3 or S4. ABDOMEN: Soft. No hernia. Bowel sounds normal. No rebound. MUSCULOSKELETAL: Head and neck, no trauma. Bilateral legs + edema. SKIN: No rash. No ulcerative change NEUROLOGIC: The patient is awake, but is anxiety and move legs and arms freely, no focal neuro deficit Psychiatry: positive anxiety Labs: Results for orders placed or performed during the hospital encounter of 06/27/24 (from the past 24 hours) Comprehensive metabolic panel Status: Abnormal Collection Time: 06/27/24 11:54 PM Result Value Ref Range Sodium 138 136 - 146 meq/L Potassium 6.7 (HH) 3.5 - 5.1 meq/L Chloride 112 102 - 112 meq/L CO2 14 (L) 21 - 32 meq/L Calcium 7.7 (L) 8.4 - 10.1 mg/dL Glucose 85 74 - 106 mg/dL BUN 116 (HH) 7 - 22 mg/dL Creatinine 16.80 (H) 0.70 - 1.30 mg/dL BUN/Creatinine 7 (L) 8 - 20 Albumin 3.6 3.4 - 5.0 g/dL Alkaline Phosphatase 221 (H) 27 - 136 U/L ALT 10 (L) 16 - 61 U/L AST 14 5 - 37 U/L Total Bilirubin 0.6 0.2 - 1.2 mg/dL Protein, Total 7.2 6.4 - 8.2 gm/dL Anion Gap 19 9 - 20 A/G Ratio 1.0 (L) 1.1 - 2.5 Globulin 3.6 1.5 - 4.5 g/dL Osmolality Calc 311.8 eGFR (mL/min/1.73m2) 3 (L) >=60 mL/min/1.73m2 Phosphorus Status: Abnormal Collection Time: 06/27/24 11:54 PM Result Value Ref Range Phosphorus 10.5 (H) 2.5 - 4.9 mg/dL Magnesium Status: Normal Collection Time: 06/27/24 11:54 PM Result Value Ref Range Magnesium 1.9 1.5 - 2.4 mg/dL Blood gas, arterial Status: Abnormal Collection Time: 06/28/24 12:07 AM Result Value Ref Range pH, Arterial 7.04 (LL) 7.35 - 7.45 pCO2, Arterial 39 35 - 45 mm Hg pO2, Arterial 103 (H) 80 - 100 mm Hg HCO3, Arterial 11 (L) 20 - 26 mmol/L Base Excess, Arterial -19.0 (L) -2.0 - 2.0 mmol/L O2 Sat, Arterial 95.1 95.0 - 100.0 % CTO2 ARTERIAL 14.4 mmol/L THB ARTERIAL 10.8 (L) 12.0 - 18.0 g/dL [facility] COLLECTION SITE Right Radial Arterial Puncture Yes Blood Gas O2 Delivery Device Cannula Oxygen Flow Rate 3 Blood Gas PT Temperature C 37.0 Michael's Test Acceptable Critical Values Notification Critical Blood gas called to MODESTA MATSON RN . Results acknowledged/read back to [id number] and confirmed on 06/28/2024 00:12 ABG Number of Draw Attempts 1 FIO2 Blood Gas Temperature Corrected Results No No Blood gas, arterial Status: Abnormal Collection Time: 06/28/24 3:49 AM Result Value Ref Range pH, Arterial 7.11 (LL) 7.35 - 7.45 pCO2, Arterial 42 35 - 45 mm Hg pO2, Arterial 104 (H) 80 - 100 mm Hg HCO3, Arterial 13 (L) 20 - 26 mmol/L Base Excess, Arterial -15.7 (L) -2.0 - 2.0 mmol/L O2 Sat, Arterial 96.0 95.0 - 100.0 % CTO2 ARTERIAL 13.9 mmol/L THB ARTERIAL 10.4 (L) 12.0 - 18.0 g/dL [facility] COLLECTION SITE Right Radial Arterial Puncture Yes Blood Gas O2 Delivery Device Cannula Oxygen Flow Rate 2 Blood Gas PT Temperature C 37.0 Michael's Test Acceptable Critical Values Notification Critical Blood gas called to JANA MATSON NOTIFIED . Results acknowledged/read back to [id number] and confirmed on 06/28/2024 03:51 ABG Number of Draw Attempts 1 FIO2 Blood Gas Temperature Corrected Results No No Glucose, Nova Meter Status: Abnormal Collection Time: 06/28/24 6:41 AM Result Value Ref Range POC-GLUCOSE 122 (H) 70 - 110 mg/dL Operations And Maintenance Supervisor [id number] Comprehensive metabolic panel Status: Abnormal Collection Time: 06/28/24 10:19 AM Result Value Ref Range Sodium 136 136 - 146 meq/L Potassium 4.6 3.5 - 5.1 meq/L Chloride 104 102 - 112 meq/L CO2 24 21 - 32 meq/L Calcium 7.8 (L) 8.4 - 10.1 mg/dL Glucose 98 74 - 106 mg/dL BUN 76 (H) 7 - 22 mg/dL Creatinine 11.60 (H) 0.70 - 1.30 mg/dL BUN/Creatinine 7 (L) 8 - 20 Albumin 3.8 3.4 - 5.0 g/dL Alkaline Phosphatase 228 (H) 27 - 136 U/L ALT 12 (L) 16 - 61 U/L AST 13 5 - 37 U/L Total Bilirubin 0.5 0.2 - 1.2 mg/dL Protein, Total 7.5 6.4 - 8.2 gm/dL Anion Gap 13 9 - 20 A/G Ratio 1.0 (L) 1.1 - 2.5 Globulin 3.7 1.5 - 4.5 g/dL Osmolality Calc 294.5 eGFR (mL/min/1.73m2) 5 (L) >=60 mL/min/1.73m2 CBC with automated diff Status: Abnormal Collection Time: 06/28/24 10:19 AM Result Value Ref Range WBC 7.5 4.2 - 9.1 K/??L RBC 3.11 (L) 4.63 - 6.08 M/??L Hemoglobin 10.1 (L) 13.7 - 17.5 GM/DL Hematocrit 32.3 (L) 40.1 - 51.0 % MCV 104 (H) 79 - 92 fL MCH 32.5 (H) 25.7 - 32.2 pg MCHC 31.3 (L) 32.3 - 36.5 GM/DL RDW 15.6 (H) 11.6 - 14.4 % Platelets 232 140 - 375 K/CU MM MPV 9.7 9.4 - 12.4 fL % Neutros 70 (H) 34 - 68 % % Lymphs 16 (L) 22 - 53 % % Monos 5 5 - 12 % % Eos 2 1 - 7 % % Baso 0 0 - 1 % NRBC Absolute 0.03 (H) 0 - 0.012 K/ul # Neutros 5.26 1.78 - 5.38 K/??L # Lymphs 1.21 (L) 1.32 - 3.57 K/??L # Monos 0.40 0.30 - 0.82 K/??L # Eos 0.14 0.04 - 0.54 K/??L # Baso 0.03 0.01 - 0.08 K/??L Immature Granulocytes-Relative 6.50 (H) 0.01 - 0.43 % # IG 0.49 (H) 0.00 - 0.03 K/uL Magnesium Status: Normal Collection Time: 06/28/24 10:19 AM Result Value Ref Range Magnesium 1.9 1.5 - 2.4 mg/dL Phosphorus Status: Abnormal Collection Time: 06/28/24 10:19 AM Result Value Ref Range Phosphorus 7.4 (H) 2.5 - 4.9 mg/dL Lactic Acid with reflex (SJ) Status: Abnormal Collection Time: 06/28/24 10:19 AM Result Value Ref Range Lactic Acid Level (mmol/L) 0.3 (L) 0.4 - 2.0 mmol/L Radiology: Radiology Results (last 3 days) Procedure Component Value Units Date/Time XR chest AP portable [[id number]] Collected: 06/28/24 1026 Order Status: Completed Updated: 06/28/24 1225 Narrative: PORTABLE CHEST HISTORY: Acute shortness of breath. COMPARISON: None. FINDINGS: The heart is enlarged in size with vascular congestion. The mediastinum is unremarkable. The lungs are clear. There is no pneumothorax. There is a left IJ dialysis catheter. Impression: Cardiomegaly with vascular congestion. Images reviewed, interpreted, and dictated by Dr. Rohith Hogue. Transcribed by Mandi Villaseñor PA-C. XR chest AP portable [[id number]] Collected: 06/28/24 08 Order Status: Completed Updated: 06/28/2448 Narrative: PORTABLE CHEST 06/28/2024 4:18 AM HISTORY: Acute shortness of breath. COMPARISON: June 27, 2024. FINDINGS: The heart is normal in size . The mediastinum is unremarkable . There is increasing pulmonary vascular congestion. There is no significant pleural effusion. There is no pneumothorax . Left-sided dialysis catheter is unchanged. Impression: Findings suggestive of mild congestive heart failure. Images reviewed, interpreted, and dictated by Dr. Carlos Eduardo Jimenez. Transcribed by Valentin Davis PA-C MICROBIOLOGY: Microbiology Results (last 7 days) No results found for the last 168 hours. Medications: Scheduled Meds: aspirin 81 mg oral Daily 81 mg at 06/28/24 0829 carvediloL 25 mg oral BID w/breakfast & dinner 25 mg at 06/28/24 0834 [Held by provider] cycloSPORINE 25 mg oral Daily entecavir 0.5 mg oral Daily gabapentin 100 mg oral BID 100 mg at 06/28/24 0829 heparin 5,000 Units subcutaneous Q12H 5,000 Units at 06/28/24 0829 insulin regular 0-18 Units subcutaneous Q6H TALIB mycophenolate mofetil 250 mg oral BID 250 mg at 06/28/24 0837 NIFEdipine 90 mg oral Daily pantoprazole 40 mg intravenous QPM 40 mg at 06/28/24 0109 sodium zirconium cyclosilicate 10 g oral Q8H 10 g at 06/28/24 0127 Continuous Infusions: Current Facility-Administered Medications Medication Dose Route Frequency Provider Last Rate Last Admin acetaminophen (TYLENOL) tablet 1,000 mg 1,000 mg oral Q6H PRN Jay Strickland MD ALPRAZolam (XANAX) tablet 0.5 mg 0.5 mg oral BID PRN Jay Strickland MD 0.5 mg at 06/28/24 0222 aspirin chewable tablet 81 mg 81 mg oral Daily Jay Strickland MD 81 mg at 06/28/24 0829 carvediloL (COREG) tablet 25 mg 25 mg oral BID w/breakfast & dinner Jay Strickland MD 25 mg at 06/28/24 0834 [Held by provider] cycloSPORINE (SandIMMUNE) capsule 25 mg 25 mg oral Daily Jay Strickland MD dexmedeTOMIDine (PRECEDEX) 400 mcg in sodium chloride 0.9% 100 mL (4 mcg/mL) infusion (premix) 0.1-1.5 mcg/kg/hr (Adjusted) intravenous Titrated Mandi Kearney PA-C Stopped at 06/28/24 0530 dextrose 50% (D50W) injection 25 g 25 g intravenous PRN Jay Strickland MD diphenhydrAMINE (BENADRYL) injection 25 mg 25 mg intravenous Q6H PRN Mandi Kearney PA-C 25 mg at 06/28/24 0408 docusate sodium (COLACE) capsule 100 mg 100 mg oral BID PRN Jay Strickland MD entecavir (BARACLUDE) tablet 0.5 mg 0.5 mg oral Daily Jay Strickland MD gabapentin (NEURONTIN) capsule 100 mg 100 mg oral BID Jay Strickland MD 100 mg at 06/28/24 0829 glucagon injection 1 mg 1 mg intraMUSCULAR PRN Jay Strickland MD glucose chew tab 16 g 16 g oral PRN Jay Strickland MD heparin injection 5,000 Units 5,000 Units subcutaneous Q12H Jay Strickland MD 5,000 Units at 06/28/24 0829 hydrALAZINE (APRESOLINE) injection 10 mg 10 mg intravenous Q6H PRN Jay Strickland MD 10 mg at 053 insulin regular (HUMULIN R,NOVOLIN R) injection 0-18 Units subcutaneous Q6H TALIB Jay Strickland MD ipratropium-albuteroL (DUO-NEB) 0.5 mg-3 mg(2.5 mg base)/3 mL nebulizer solution 3 mL 3 mL nebulization Q6H PRN Jay Strickland MD melatonin tablet 3 mg 3 mg oral Every Night PRN Jay Strickland MD morphine injection 2 mg 2 mg intravenous Q4H PRN Jay Strickland MD 2 mg at 06/28/24 1443 mycophenolate mofetil (CELLCEPT) capsule 250 mg 250 mg oral BID Jay Strickland MD 250 mg at 06/28/24 0837 naloxone (NARCAN) injection 0.2 mg 0.2 mg intravenous Q2 Min PRN Jay Strickland MD NIFEdipine (PROCARDIA-XL) 24 hr tablet 90 mg 90 mg oral Daily Jay Strickland MD ondansetron (ZOFRAN-ODT) disintegrating tablet 4 mg 4 mg oral Q8H PRN Jay Strickland MD Or ondansetron PF (ZOFRAN) injection 4 mg 4 mg intravenous Q8H PRN Jay Strickland MD oxyCODONE (ROXICODONE) immediate release tablet 5 mg 5 mg oral Q4H PRN Jay Strickland MD 5 mg at 06/28/24 1442 pantoprazole (PROTONIX) injection 40 mg 40 mg intravenous QPM Jay Strickland MD 40 mg at 06/28/24 0109 polyethylene glycol (GLYCOLAX) packet 17 g 17 g oral Daily PRN Jay Strickland MD sodium chloride flush 10 mL 10 mL intravenous PRN Jay Strickland MD sodium zirconium cyclosilicate (LOKELMA) packet 10 g 10 g oral Q8H Mandi Kearney PA-C 10 g at 06/28/24 0127 PRN Meds: @MEDSPRN@ [employer] is used for dictation of this note and sound-alike words might be erroneously placed despite reviewing the note for accuracy. Errors in dictation may reflect use of voice recognitionsoftware and not all errors in scuba diving instructor may have been detected prior to signing. ARCH AFFILIATE * Humble Blankenship MD - 06/28/2024 11:44 AM EST Objective: Blood pressure (!) 214/104, pulse 85, temperature 97.7 ??F (36.5 ??C), temperature source Oral, resp. rate 17, weight (!) 140.2 kg (309 lb 1.4 oz), SpO2 (!) 89%. Intake/Output Summary (Last 24 hours) at 06/28/2024 1144 Last data filed at 06/28/2024 0735 Gross per 24 hour Intake 240 ml Output -- Net 240 ml No intake/output data recorded. Physical Exam: Seen on HD Labs: Recent Labs Lab(s) Units 06/28/24 1019 WBC K/??L 7.5 HGB GM/DL 10.1* PLT K/CU MM 232 Recent Labs Lab(s) Units 06/28/24 1019 06/27/24 2354 NA meq/L 136 138 K meq/L 4.6 6.7* CL meq/L 104 112 CO2 meq/L 24 14* BUN mg/dL 76* 116* CREATININE mg/dL 11.60* 16.80* CALCIUM mg/dL 7.8* 7.7* PHOS mg/dL 7.4* 10.5* MG mg/dL 1.9 1.9 ALBUMIN g/dL 3.8 3.6 A/P: Tolerating dialysis. Patient with significant sleep apnea. Has been having significant abdominal breathing which has made dialysis difficult. Patient refusing to wear hospital CPAP as he typically uses nasal mask.. Awaiting home machine. Hyperkalemia: Potassium down to 4.6 from 6.7. Adjusting with HD. Access malfunction: Patient has had multiple exchanges of his dialysis catheter. Last exchanged 05/16/2024 patient with fibrin sheath. Will have radiology evaluate today. Humble Blankenship MD 06/28/24 11:44 AM ARCH AFFILIATE ARCH AFFILIATE * Glenn Kay MD - 06/28/2024 1:57 AM EST ABG reviewed uncompensated severe met acidosis at risk of further decompensation. Plan for emergenthd tonight after temp access placement per icu Director Of Customer Service. Discussed with housekeeping/laundry to call butadiene convertor operator RN for hd. ARCH AFFILIATE * Glenn Kay MD - 06/28/2024 1:44 AM EST Patient transferred from [facility] after he presented with worseninf sob and missing hd for 5 days. He darryl HHD 4-5x weekly hasn???t had dialysis since Monday due to non functioning Left IJ TDC. Upon evaluation patient is on supplemental o2z Corenlia any specific uremic symptoms. Does have some itchinf. Labs are osh showed k ~7.8 requiring 1 round of shifting agents. Repeat labs showing improvement in potassium k ~ 6.8 bicarb 14 bun 119. Will repeat another round of shifitng agents. 10 units of insulin, d50 and Nabicarb 50 meqx1 lokelma 10 gm q8hr Recheck labs in 2 hr NPO for now for cath exchange in the morning. Discussed with ICU STUNT MAN patient might need temp hd if hyperkalemia doesn???t improve ARCH AFFILIATE documented in this encounter H&P Notes * Jay Strickland MD - 06/27/2024 11:26 PM EST PCP: Edgar Fournier MD Date of Admission: 06/27/2024 History of present illness Patient comes from the outside facility. He has end-stage kidney disease on hemodialysis. He presented outside facility with complaints of wheezing and weakness. Patient have been having difficulty with his hemodialysis access catheter which seems to be malfunctioning. He was unable to receive hemod ialysis. In the ED outside facility found to have potassium of 7.8, BUN of 112, serum creatinine 17, CO2 of 11, and phosphate level of greater than 12. In this context our service is asked to accept him. Transferring physician already spoken with the nephrology service on-call as well as critical care service butadiene convertor operator. Critical care agreed to replace hemodialysis access catheter emergently. Patient just arrived here in ICU. He appears weak. He is on 2 L of oxygen. Patient asking for morphine forpain at the moment. No family in the room at the time of my encounter nursing in the room evaluating him at the same time. Review of Systems Constitutional: As per HPI. Respiratory: As per HPI. Cardiovascular: As per HPI. Gastrointestinal: As per HPI. Genitourinary: As per HPI. Past Medical History End-stage kidney disease on hemodialysis, recent trouble with hemodialysis access catheter, type 2 diabetes mellitus, history of Kim liver cirrhosis with prior liver transplant and immunocompromise status, essential hypertension, history of AV fistula placement Social History No tobacco, alcohol, or drug abuse Family History His family history is not on file. Allergies Tacrolimus Home Medications Current Outpatient Medications Medication Instructions ALPRAZolam (XANAX) 0.5 mg, oral aspirin 81 mg, oral calcium carbonate (Tums) 500 mg chewable tablet 2 tablets, oral carvediloL (COREG) 25 MG tablet 1 tablet, oral, 2 times daily with breakfast and dinner cycloSPORINE (SandIMMUNE) 25 MG capsule oral doxazosin (CARDURA XL) 8 MG 24 hr tablet entecavir (BARACLUDE) 0.5 MG tablet oral ergocalciferol (ERGOCALCIFEROL) 1,250 mcg (50,000 unit) capsule oral [id number] 1 mg-1.5 mg- 1.7 mg-50 mg tab fenofibrate (LIPOFEN) 50 mg, oral folic acid (FOLVITE) 1,000 mcg, oral, Daily gabapentin (NEURONTIN) 300 MG capsule oral HumuLIN N NPH Insulin KwikPen 100 unit/mL (3 mL) inpn subcutaneous insulin aspart U-100 (NovoLOG Flexpen U-100 Insulin) 100 unit/mL (3 mL) inpn subcutaneous Lokelma 10 gram pwpk 1 packet, oral methocarbamoL (ROBAXIN) 500 MG tablet 1 tablet, oral montelukast (SINGULAIR) 10 mg, oral, Daily mycophenolate mofetil (CELLCEPT) 250 mg, oral naloxone (NARCAN) 4 mg/actuation spry 1 spray, intraNASAL NIFEdipine (ADALAT CC) 90 mg, oral ofloxacin (FLOXIN) 0.3 % otic solution SMARTSIG:In Ear(s) ondansetron (ZOFRAN-ODT) 8 mg, oral, 3 times daily pantoprazole (PROTONIX) 40 MG tablet oral promethazine (PHENERGAN) 25 MG tablet 1 tablet, oral testosterone cypionate (DEPOTESTOTERONE CYPIONATE) 200 mg/mL injection intraMUSCULAR, Every 28 days Vascepa 1 gram capsule 2 capsules, oral, 2 times daily Xphozah 30 mg, oral Physical Exam There were no vitals filed for this visit. Vital signs generally stable at the moment General: NAD, anxious, morbidly obese HEENT: Generally negative Neck: No JVD noted CVS: S1, S2, no S3 or S4 Lungs: Bilateral wheezing noted equal air entry symmetrical chest expansion GI: Soft , audible bowel sounds Neurological: Nonfocal Musculoskeletal: Generally unremarkable Skin: Warm without any rashes Labs & Imaging No results found for this or any previous visit (from the past 24 hours). No results found. Outside labs with potassium of 7.8, BUN 112, serum creatinine 17, CO2 11, and phosphate of 12 Diagnosis -Malfunctioning hemodialysis access catheter with known end-stage kidney disease maintained on hemodialysis, followed by [facility] -Critical hyperkalemia -Marked acute metabolic acidosis -Marked hyperphosphatemia -Type 2 diabetes mellitus -History of Kim liver cirrhosis with prior liver transplant and immunocompromise status -Umbilical hernia seems to be asymptomatic -Morbid obesity/JC Plan This patient obviously in critical condition, being admitted, I will keep him n.p.o., consulting pulmonary critical care services as well as nephrology services, adding GI and DVT prophylaxis continue subset of home meds as indicated already received treatment for hyperkalemia in outside facility will update labs continue oxygen support plan of care discussed with the patient discussed with the nursing approximately 32 minutes of critical care time spent taking care of this patient Patient is expected to need 2 midnights or greater length of stay due to medical issues and active medical problems mentioned above Electronically signed by: Jay Strickland MD, 06/27/2024 at 11:26 PM EST ARCH AFFILIATE documented in this encounter Procedure Notes * Carlos Eduardo Jimenez MD - 06/28/2024 4:57 PM EST Pre-Op/Procedure Diagnosis: Renal failure, need for hemodialysis access Post-OP Diagnosis: Same Procedure Performed: Tunneled dialysis cath placement Procedural Radiologist: Carlos Eduardo Jimenez MD Sizing Machine And Drier Operator: None Sedation: 0.5 mg iv Versed and 25 micrograms iv Fentanyl Findings: Successful left IJ tunneled dialysis catheter replacement with ultrasound and fluoroscopyguidance. STUDENT AFFAIRS VICE PRESIDENT of SVC Complications: No immediate complications EBL: Trace/ not significant Specimen(s) Removed: None Full report to follow. ARCH AFFILIATE * Frank Zaragoza MD - 06/28/2024 7:20 AM EST Procedure right femoral dialysis catheter Central line insertion procedure /femoral: Dialysis catheter, nontunneled Date/ Time: 06/28/2024 7:20 AM Confirmed: patient, procedure, side, site, safety procedures followed. Performed by: self. Informed consent: not signed due to emergency circumstance. Indication: Acute renal failure Preparation: sterile preparation of site (in usual fashion, with 2% chlorhexidine gluconate, drapedto expose affected area, with full drapes, gown, gloves and mask), vessel was identified ( ultrasound guided), position ( supine) Anesthesia: 2% xylocaine. Sedation: none. Technique: ultrasound localization used, non-tunneled, location (right femoral vein 1 attempts), central approach used, catheter type (11 Fr, 3 lumen catheter trialysis catheter) location confirmed via flashback, catheter flushed with saline, total catheter length 20 cm, dressing applied (catheter secured, semi- permeable transparent dressing applied), monitoring during procedure (blood pressure, cardiac, continuous pulse oximetry). Procedure tolerated: well, estimated blood loss 2 ml. Findings: Flushing Complications at the time of procedure: none. ARCH AFFILIATE documented in this encounter Consult Notes * Mandi Kearney PA-C - 06/28/2024 12:28 AM ESTAssociated Order(s): Inpatient consult to Pulmonology Inpatient consult to Pulmonology Consult performed by: Mandi Kearney PA-C Consult ordered by: Jay Strickland MD PULMONARY AND CRITICAL CARE Consult Note Date of Service: 06/28/2024 Time: 12:28 AM HPI: This is a 49 y.o. year old male with past medical history significant for ESRD on HD 3-4x/week, DM II, hepatitis, hypertension, KIM s/p liver transplant 2018, JC wears Bipap at night. Patient presented to OSH with complaints of wheezing and weakness. He has not received HD in almost a week. He was found to have malfunctioning HD catheter. At OSH, labs were significant for potassium of 7.8, BUN 112, creatinine 17, CO2 11, phosphate >12. Patient was transferred to [facility] for higher level of care. Potassium was treated at OSH prior to transfer. Pulmonary is consulted for critical care management. PAST MEDICAL HISTORY: Past Medical History: Diagnosis Date Chronic kidney disease Diabetes mellitus (HCC) Hepatitis Hypertension KIM (nonalcoholic steatohepatitis) PAST SURGICAL HISTORY: Past Surgical History: Procedure Laterality Date AV FISTULA PLACEMENT TRANSPLANT,LIVER Allergies: Allergies Allergen Reactions Tacrolimus Other (See Comments) Anxious feeling and muscle jerking. TOLERATED ENVARSUS BETTER THAN PROGRAF. SOCIAL HISTORY: Social History Tobacco Use Smoking status: Never Smokeless tobacco: Never Substance Use Topics Alcohol use: Not Currently Drug use: Never FAMILY HISTORY: family history is not on file. Review of Systems Constitutional: Negative. Respiratory: Negative for shortness of breath. Cardiovascular: Negative for chest pain. Musculoskeletal: Positive for joint pain. All other systems reviewed and are negative. Vital Signs Current: 24 Hour: No data recorded Intake/Output: No intake/output data recorded. Physical Exam Constitutional: General: He is not in acute distress. Appearance: He is obese. HENT: Head: Normocephalic. Nose: Nose normal. Mouth/Throat: Mouth: Mucous membranes are moist. Eyes: Pupils: Pupils are equal, round, and reactive to light. Cardiovascular: Rate and Rhythm: Normal rate and regular rhythm. Pulmonary: Breath sounds: No wheezing or rhonchi. Abdominal: Palpations: Abdomen is soft. Comments: Obese Musculoskeletal: Right lower leg: Edema present. Left lower leg: Edema present. Skin: General: Skin is warm and dry. Neurological: Mental Status: He is alert and oriented to person, place, and time. Psychiatric: Mood and Affect: Mood normal. Vent / O2 Management: LABS Results for orders placed or performed during the hospital encounter of 06/27/24 (from the past 24 hours) Blood gas, arterial Status: Abnormal Collection Time: 06/28/24 12:07 AM Result Value Ref Range pH, Arterial 7.04 (LL) 7.35 - 7.45 pCO2, Arterial 39 35 - 45 mm Hg pO2, Arterial 103 (H) 80 - 100 mm Hg HCO3, Arterial 11 (L) 20 - 26 mmol/L Base Excess, Arterial -19.0 (L) -2.0 - 2.0 mmol/L O2 Sat, Arterial 95.1 95.0 - 100.0 % CTO2 ARTERIAL 14.4 mmol/L THB ARTERIAL 10.8 (L) 12.0 - 18.0 g/dL [facility] COLLECTION SITE Right Radial Arterial Puncture Yes Blood Gas O2 Delivery Device Cannula Oxygen Flow Rate 3 Blood Gas PT Temperature C 37.0 Michael's Test Acceptable Critical Values Notification Critical Blood gas called to NOTIFIED RAQUEL MATSON RN . Results acknowledged/read back to [id number] and confirmed on 06/28/2024 00:12 ABG Number of Draw Attempts 1 FIO2 Blood Gas Temperature Corrected Results No No Radiology Radiology Results (last day) Procedure Component Value Units Date/Time XR chest AP portable [[id number]] Resulted: 06/27/242357 Order Status: Sent Updated: 06/27/242357 Microbiology: Microbiology Results (last 7 days) No results found for the last 168 hours. ASSESSMENT: Pulmonary JC, uses Bipap at night Non-smoker Cardiac Hypertension Renal ESRD, HD x5 years. Now with malfunctioning access. History of multiple HD catheters in R and L IJ Hyperkalemia Hyperphosphatemia Acute metabolic acidosis ID Immunocompromised, on Cellcept and cyclosporine GI KIM, s/p liver transplant 2018 Hepatitis Endocrine DM II Neuro Alert and oriented PLAN: Supplemental O2 to maintain O2 saturations 92-96% Duonebs Q6H PRN NIPPV at night Continue oral hypertensive medications Renal following Lokelma 10g Q8H x3 doses 3 amps Bicarb now ABG and CMP Q4H HD access replacement in AM HD per renal recommendations Antibiotics: none Continue cyclosporine, entecavir, Cellcept Nutrition: NPO Glycemic control: SSI Prophylaxis: Protonix and heparin SQ AM labs/CXR Mandi Kearney PA-C CCT 50 minutes Cosigned by Frank Zaragoza MD at 06/28/2024 9:24 AM EST ARCH AFFILIATE ARCH AFFILIATE ARCH AFFILIATE documented in this encounter Miscellaneous Notes * Nursing Progress Notes - Ayaz Mejias RN - 06/30/2024 1:35 PM EST Discharged instructions given to the patient and all lines were removed except Dialysis catheter and all belongings handed over to the patient.Patient went home in a stable condition. ARCH AFFILIATE * Plan of Care - Ayaz Mejias RN - 06/30/2024 12:59 PM EST COMPLETED ARCH AFFILIATE * Plan of Care - Carri Marino RN - 06/29/2024 9:37 PM EST Problem: Pain Goal: Patient's pain/discomfort is manageable Description: Assess and monitor patient's pain using appropriate pain scale. Collaborate with interdisciplinary team and initiate plan and interventions as ordered. Re-assess patient's pain level after pain management intervention. Outcome: Progressing Problem: Safety Goal: Patient will be injury free during hospitalization Description: Assess and monitor vitals signs, neurological status including level of consciousness and orientation. Assess patient's risk for falls and implement fall prevention plan of care and interventions per hospital policy. Ensure arm band on, uncluttered walking paths in room, adequate room lighting, call light and overbed table within reach, bed in low position, wheels locked, side rails up per policy, and non-skid footwear provided. Outcome: Progressing Problem: Potential for Developing a Blood Clot Goal: Tissue perfusion is adequate - venous Description: Assess and monitor skin color and temperature, skin integrity, pulses, capillary refill, edema, pain in extremities, Homans' sign, labs (D- dimer), and diagnostic tests (ultrasound, CT scan, VQ scan). Monitor for signs and symptoms of deep vein thrombosis (swelling of calf/thigh, redness, pain, tenderness). Monitor for signs and symptoms of pulmonary embolism (dyspnea, tachypnea, tachycardia). Collaborate with interdisciplinary team and initiate plans and interventions as needed Outcome: Progressing Problem: Daily Care Goal: Daily care needs are met Description: Assess and monitor ability to perform self care and identify potential discharge needs. Outcome: Progressing Problem: Potential for Infection Goal: Remains infection free Description: Assess and monitor vital signs, skin (color, moisture, integrity, turgor), respiratorystatus, urinary and gastrointestinal status, and labs (WBC, cultures). Administer antibiotics and antipyretics as ordered. Ensure aseptic care of all intravenous lines, invasive tubes/drains and wounds. Monitor for signs and symptoms of infection (redness, warmth, discharge, increased body temperature). Wash hands properly before and after each patient care activity. Follow isolation guidelines per hospital protocol/policy. Collaborate with interdisciplinary team and initiate plan and interventions as ordered. Outcome: Progressing Problem: Psychosocial Needs Goal: Demonstrates ability to cope with hospitalization/illness Description: Assess and monitor patients ability to cope with his/her illness. Outcome: Progressing Goal: Collaborate with patient/family/caregiver to identify patient specific goals for this hospitalization Outcome: Progressing Problem: Anxiety Goal: Anxiety is at manageable level Description: Assess and monitor patient's anxiety level. Monitor for signs and symptoms of anxiety both physical and emotional (heart palpitations, chest pain, shortness of breath, headaches, nausea,feeling jumpy, restlessness, irritable, apprehensive). Collaborate with interdisciplinary team and initiate plan and interventions as ordered. Outcome: Progressing Problem: Discharge Barriers Goal: Patient's discharge needs are met Description: Collaborate with interdisciplinary team and initiate plans and interventions as needed. Outcome: Progressing ARCH AFFILIATE * Nursing Progress Notes - Sergio Pappas RN - 06/29/2024 9:22 PM EST 06/29/242014 Vitals Pulse 93 Resp 20 BP (!) 165/87 During Hemodialysis Assessment Hemodialysis Status Completed Ultrafiltration Status Completed Prime Volume 200 Blood Flow Rate (mL/min) 350 mL/min Ultrafiltration Rate (mL/hr) 971 mL/hr Venous Pressure (mmHg) 141 Transmembrane Pressure (mmHg) 15 mmHg Arterial Pressure (mmHg) -107 UF Goal 3400 ml UF Removed (mL) 3406 ml Dialysate Flow Rate (mL/min) 750 ml/min Remaining Time (min) 0 mins UF State On Blood Volume Processed 73.2 ml Arteriovenous Lines Secure Yes Intra-Hemodialysis Comments HD tx complete 06/29/242019 Vitals Pulse 88 Resp 17 BP (!) 159/85 MAP (mmHg) 112 Post-Hemodialysis Assessment Total Blood Volume Processed 73.2 mL Duration of Treatment (minutes) 210 min Hemodialysis UF Net Intake (mL) 400 mL Hemodialysis UF Net Output (mL) 3006 mL Hemodialysis UF Gross (mL) 3406 mL Patient Status Stable Post-Treatment Weight 137 kg (302 lb 0.5 oz) Treatment Weight Change (kg) -3 kg Post-Hemodialysis Comments (HD tx completed in full. Pt tolerated tx well. Net UF 3L removed. LTDC ran reversed but able to maintain ordered BFR of 350 mL/min. Blood returned to pt. LTDC flushed and capped. Report given to primary RN. Pt VSS upon leaving bedside.) ARCH AFFILIATE documented in this encounter Plan of Treatment [...] GLUCOSE POC Routine 06/29/2024 8:42 PM EST PHOSPHORUS Add-On 06/29/2024 12:21 PM EST MAGNESIUM Add-On 06/29/2024 12:21 PM EST COMPREHENSIVE METABOLIC PANEL Routine 06/29/2024 12:21 PM EST NOVA GLUCOSE POC Routine 06/29/2024 12:1 8 PM EST COMPREHENSIVE METABOLIC PANEL Routine 06/29/2024 6:26 AM EST NOVA GLUCOSE POC Routine 06/29/2024 6:25 AM EST COMPREHENSIVE METABOLIC PANEL Routine 06/28/2024 11:34 PM EST COMPREHENSIVE METABOLIC PANEL Routine 06/28/2024 7:10 PM EST IR CENTRAL VENOUS Routine 06/28/2024 4:5 8 PM EST CBC W/ AUTO DIFF Routine 06/28/2024 10:1 9 AM EST LACTIC ACID WITH REFLEX Routine 06/28/2024 10:19 AM EST PHOSPHORUS Routine 06/28/2024 10:19 AM EST MAGNESIUM Routine 06/28/2024 10:19 AM EST COMPREHENSIVE METABOLIC PANEL Routine 06/28/2024 10:19 AM EST NOVA GLUCOSE POC Routine 06/28/2024 6:41 AM EST XR CHEST AP PORTABLE Routine 06/28/2024 4:18 AM EST BLOOD GAS, ARTERIAL Routine 06/28/2024 3 :49 AM EST BLOOD GAS, ARTERIAL STAT 06/28/2024 1 2:07 AM EST XR CHEST AP PORTABLE STAT 06/27/2024 11:58 PM EST PHOSPHORUS STAT 06/27/2024 11:54 PM EST MAGNESIUM STAT 06/27/2024 11:54 PM EST COMPREHENSIVE METABOLIC PANEL STAT 06/27/2024 11:54 PM EST documented in this encounter Results * (ABNORMAL) Glucose, Nova Meter (06/30/2024 12:05 PM EST) [facility] POC-GLUCOSE 128(H) 70 - 110 mg/dL 06/30/2024 12:07 PM EST [facility] Comment:In the event of poor peripheral blood flow, venous or arterial blood should be used due to the potential of erroneous results. Operations And Maintenance Supervisor [phone] 06/30/2024 12:07 PM EST [facility] Blood WHOLE BLOOD / Unknown 06/30/2024 12:05 PM EST 06/30/2024 12:07 PM EST Narrative [facility] - 06/30/2024 12:07 PM EST Operations And Maintenance Supervisor ID is - [id number] Huyen Levi MD POINT OF CARE TEST ORDERABLES Fi nal Result [facility] [address] [phone] * (ABNORMAL) Comprehensive metabolic panel (06/30/2024 5:15 AM EST) Sodium 132(L) 136 - 146 meq/L 06/30/2024 6:10 AM [facility] Potassium 4.3 3.5 - 5.1 meq/L 06/30/2024 6:10 AM [facility] Chloride 103 102 - 112 meq/L 06/30/2024 6:10 AM [facility] CO2 21 21 - 32 meq/L 06/30/2024 6:10 AM [facility] Calcium 8.1(L) 8.4 - 10.1 mg/dL 06/30/2024 6:10 AM [facility] Glucose 100 74 - 106 mg/dL 06/30/2024 6:10 AM [facility] BUN 49(H) 7 - 22 mg/dL 06/30/2024 6:10 AM [facility] Creatinine 9.56(H) 0.70 - 1.30 mg/dL 06/30/2024 6:10 AM [facility] BUN/Creatinine 5(L) 8 - 20 06/30/2024 6:10 AM [facility] Albumin 3.2(L) 3.4 - 5.0 g/dL 06/30/2024 6:10 AM [facility] Alkaline Phosphatase 190(H) 27 - 136 U/L 06/30/2024 6:10 AM [facility] ALT 7(L) 16 - 61 U/L 06/30/2024 6:10 AM [facility] AST 14 5 - 37 U/L 06/30/2024 6:10 AM [facility] Total Bilirubin 0.5 0.2 - 1.2 mg/dL 06/30/2024 6:10 AM [facility] Protein, Total 7.0 6.4 - 8.2 gm/dL 06/30/2024 6:10 AM [facility] Anion Gap 12 9 - 20 06/30/2024 6:10 AM [facility] A/G Ratio 0.8(L) 1.1 - 2.5 06/30/2024 6:10 AM [facility] Globulin 3.8 1.5 - 4.5 g/dL 06/30/2024 6:10 AM EST [facility] Osmolality Calc 277.6 6:10 AM EST [facility] eGFR (mL/min/1.73m2) 6(L) >=60 mL/min/1.7 3m2 06/30/2024 6:10 AM EST [facility] Comment:ESTIMATED GFR IS NOT ACCURATE CREATININE CLEARANCE IN PREDICTING GLOMERULAR FILTRATION RATE. ESTIMATED GFR IS NOT APPLICABLE FOR DIALYSIS PATIENTS. Blood Venipuncture / Unknown 06/30/2024 5:15 AM EST 06/30/2024 5:19 AM EST Mandi Kearney PA-C LAB BLOOD ORDERABLES Final Resul t Performing Organization Address [facility] Co va Phone Number [facility] [address] [place] [address] * Glucose, Nova Meter (06/30/2024 5:13 AM EST) POC-GLUCOSE 95 70 - 110 mg/dL 06/30/2024 5:14 AM [facility] Comment: In the event of poor peripheral blood flow, venous or arterial blood should be used due to the potential of erroneous results. Protocols Followed Operations And Maintenance Supervisor [phone] 06/30/2024 5:14 AM [facility] Blood WHOLE BLOOD / Unknown 06/30/2024 5:13 AM EST 06/30/2024 5:14 AM EST Narrative [facility] - 06/30/2024 5:14 AM EST Operations And Maintenance Supervisor ID is - [id number] us Huyne Levi MD POINT OF CARE TEST ORDERABLES Fi nal Result Performing Organization Address City/[facility]/ZIP Co de Phone Number [facility] [address] [phone] * (ABNORMAL) Comprehensive metabolic panel (06/30/2024 1:12 AM EST) Sodium 133(L) 136 - 146 meq/L 06/30/2024 1:53 AM [facility] Potassium 4.3 3.5 - 5.1 meq/L 06/30/2024 1:53 AM [facility] Chloride 105 102 - 112 meq/L 06/30/2024 1:53 AM [facility] CO2 20(L) 21 - 32 meq/L 06/30/2024 1:53 AM [facility] Calcium 7.6(L) 8.4 - 10.1 mg/dL 06/30/2024 1:53 AM [facility] Glucose 115(H) 74 - 106 mg/dL 06/30/2024 1:53 AM [facility] BUN 46(H) 7 - 22 mg/dL 06/30/2024 1:53 AM [facility] Creatinine 8.46(H) 0.70 - 1.30 mg/dL 06/30/2024 1:53 AM [facility] BUN/Creatinine 5(L) 8 - 20 06/30/2024 1:53 AM [facility] Albumin 3.1(L) 3.4 - 5.0 g/dL 06/30/2024 1:53 AM [facility] Alkaline Phosphatase 181(H) 27 - 136 U/L 06/30/2024 1:53 AM [facility] ALT 8(L) 16 - 61 U/L 06/30/2024 1:53 AM [facility] AST 18 5 - 37 U/L 06/30/2024 1:53 AM [facility] Total Bilirubin 0.4 0.2 - 1.2 mg/dL 06/30/2024 1:53 AM [facility] Protein, Total 6.8 6.4 - 8.2 gm/dL 06/30/2024 1:53 AM [facility] Anion Gap 12 9 - 20 06/30/2024 1:53 AM [facility] A/G Ratio 0.8(L) 1.1 - 2.5 06/30/2024 1:53 AM [facility] Globulin 3.7 1.5 - 4.5 g/dL 06/30/2024 1:53 AM [facility] Osmolality Calc 279.2 1:53 AM [facility] eGFR (mL/min/1.73m2) 7(L) >=60 mL/min/1.7 3m2 06/30/2024 1:53 AM [facility] Comment:ESTIMATED GFR IS NOT ACCURATE CREATININE CLEARANCE IN PREDICTING GLOMERULAR FILTRATION RATE. ESTIMATED GFR IS NOT APPLICABLE FOR DIALYSIS PATIENTS. Blood Venipuncture / Unknown 06/30/2024 1:12 AM EST 06/30/2024 1:21 AM EST us Mandi Kearney PA-C LAB BLOOD ORDERABLES Final Resul t [facility] [address] [phone] * (ABNORMAL) Comprehensive metabolic panel (06/29/2024 8:56 PM EST) Sodium 132(L) 136 - 146 meq/L 06/29/2024 9:32 PM [facility] Potassium 3.9 3.5 - 5.1 meq/L 06/29/2024 9:32 PM [facility] Chloride 100(L) 102 - 112 meq/L 06/29/2024 9:32 PM [facility] CO2 21 21 - 32 meq/L 06/29/2024 9:32 PM [facility] Calcium 8.5 8.4 - 10.1 mg/dL 06/29/2024 9:32 PM [facility] Glucose 130(H) 74 - 106 mg/dL 06/29/2024 9:32 PM [facility] BUN 43(H) 7 - 22 mg/dL 06/29/2024 9:32 PM [facility] Creatinine 7.61(H) 0.70 - 1.30 mg/dL 06/29/2024 9:32 PM [facility] BUN/Creatinine 6(L) 8 - 20 06/29/2024 9:32 PM [facility] Albumin 3.5 3.4 - 5.0 g/dL 06/29/2024 9:32 PM [facility] Alkaline Phosphatase 199(H) 27 - 136 U/L 06/29/2024 9:32 PM [facility] ALT 11(L) 16 - 61 U/L 06/29/2024 9:32 PM [facility] AST 19 5 - 37 U/L 06/29/2024 9:32 PM [facility] Total Bilirubin 0.5 0.2 - 1.2 mg/dL 06/29/2024 9:32 PM [facility] Protein, Total 7.3 6.4 - 8.2 gm/dL 06/29/2024 9:32 PM [facility] Anion Gap 15 9 - 20 06/29/2024 9:32 PM [facility] A/G Ratio 0.9(L) 1.1 - 2.5 06/29/2024 9:32 PM [facility] Globulin 3.8 1.5 - 4.5 g/dL 06/29/2024 9:32 PM [facility] Osmolality Calc 277.1 9:32 PM [facility] eGFR (mL/min/1.73m2) 8(L) >=60 mL/min/1.7 3m2 06/29/2024 9:32 PM [facility] Comment:ESTIMATED GFR IS NOT ACCURATE CREATININE CLEARANCE IN PREDICTING GLOMERULAR FILTRATION RATE. ESTIMATED GFR IS NOT APPLICABLE FOR DIALYSIS PATIENTS. Blood Venipuncture / Unknown 06/29/2024 8:56 PM EST 06/29/2024 9:08 PM EST us Mandi Kearney PA-C LAB BLOOD ORDERABLES Final Resul t [facility] [address] [place] [address], [facility] [phone] * (ABNORMAL) Glucose, Nova Meter (06/29/2024 8:42 PM EST) POC-GLUCOSE 127(H) 70 - 110 mg/dL 06/29/2024 8:43 PM [facility] Comment: In the event of poor peripheral blood flow, venous or arterial blood should be used due to the potential of erroneous results. Protocols Followed Operations And Maintenance Supervisor [phone] 06/29/2024 8:43 PM EST [facility] Blood WHOLE BLOOD / Unknown 06/29/2024 8:42 PM EST 06/29/2024 8:43 PM EST Narrative [facility] - 06/29/2024 8:43 PM EST Operations And Maintenance Supervisor ID is - [id number] Huyen Levi MD POINT OF CARE TEST ORDERABLES Fi nal Result Performing Organization Address [facility]/ZIP Co de Phone Number [facility] [address] [phone] * Magnesium (06/29/2024 12:21 PM EST) Magnesium 1.7 1.5 - 2.4 mg/dL 06/29/2024 4:19 PM EST [facility] Blood VENOUS LINE / Unknown Venipuncture / Unknown 06/29/2024 12:21 PM EST 06/29/2024 12:28 PM EST Karishma Hodge MD LAB BLOOD ORDERABLES Final Resu lt Performing Organization Address [facility] Co va Phone Number [facility] [address] [phone] * (ABNORMAL) Phosphorus (06/29/2024 12:21 PM EST) Phosphorus 10.1(H) 2.5 - 4.9 mg/dL 06/29/2024 4:19 PM EST [facility] Blood VENOUS LINE / Unknown Venipuncture / Unknown 06/29/2024 12:21 PM EST 06/29/2024 12:28 PM EST Karishma Hodge MD LAB BLOOD ORDERABLES Final Resu lt Performing Organization Address City/[facility] Co de Phone Number [facility] [address] [phone] * (ABNORMAL) Comprehensive metabolic panel (06/29/2024 12:21 PM [facility]) Sodium 136 136 - 146 meq/L 06/29/2024 1:18 PM [facility] Potassium 4.7 3.5 - 5.1 meq/L 06/29/2024 1:18 PM [facility] Chloride 102 102 - 112 meq/L 06/29/2024 1:18 PM [facility] CO2 19(L) 21 - 32 meq/L 06/29/2024 1:18 PM [facility] Calcium 7.3(L) 8.4 - 10.1 mg/dL 06/29/2024 1:18 PM [facility] Glucose 138(H) 74 - 106 mg/dL 06/29/2024 1:18 PM [facility] BUN 89(HH) 7 - 22 mg/dL 06/29/2024 1:18 PM [facility] Creatinine 13.64(H) 0.70 - 1.30 mg/dL 06/29/2024 1:18 PM [facility] BUN/Creatinine 7(L) 8 - 20 06/29/2024 1:18 PM [facility] Albumin 3.1(L) 3.4 - 5.0 g/dL 06/29/2024 1:18 PM [facility] Alkaline Phosphatase 178(H) 27 - 136 U/L 06/29/2024 1:18 PM [facility] ALT 8(L) 16 - 61 U/L 06/29/2024 1:18 PM [facility] AST 17 5 - 37 U/L 06/29/2024 1:18 PM [facility] Total Bilirubin 0.5 0.2 - 1.2 mg/dL 06/29/2024 1:18 PM [facility] Protein, Total 6.3(L) 6.4 - 8.2 gm/dL 06/29/2024 1:18 PM [facility] Anion Gap 20 9 - 20 06/29/2024 1:18 PM [facility] A/G Ratio 1.0(L) 1.1 - 2.5 06/29/2024 1:18 PM [facility] Globulin 3.2 1.5 - 4.5 g/dL 06/29/2024 1:18 PM [facility] Osmolality Calc 301.4 1:18 PM [facility] eGFR (mL/min/1.73m2) 4(L) >=60 mL/min/1. 73m2 06/29/2024 1:18 PM EST [facility] Comment:ESTIMATED GFR IS NOT ACCURATE CREATININE CLEARANCE IN PREDICTING GLOMERULAR FILTRATION RATE. ESTIMATED GFR IS NOT APPLICABLE FOR DIALYSIS PATIENTS. Blood VENOUS LINE / Unknown Venipuncture / Unknown 06/29/2024 12:21 PM EST 06/29/2024 12:28 PM EST us Mandi Kearney PA-C LAB BLOOD ORDERABLES Final Resul t Performing Organization Address [facility] Number [facility] [address] [phone] * (ABNORMAL) Glucose, Nova Meter (06/29/2024 12:18 PM EST) POC-GLUCOSE 130(H) 70 - 110 mg/dL 06/29/2024 12:21 PM [facility] Comment: In the event of poor peripheral blood flow, venous or arterial blood should be used due to the potential of erroneous results. Protocols Followed Operations And Maintenance Supervisor [phone] 06/29/2024 12:21 PM EST [facility] Blood WHOLE BLOOD / Unknown 06/29/2024 12:18 PM EST 06/29/2024 12:21 PM EST Narrative [facility] - 06/29/2024 12:21 PM EST Operations And Maintenance Supervisor ID is - [id number] Huyen Levi MD POINT OF CARE TEST ORDERABLES Fi nal Result Performing Organization Address [facility] Co de Phone Number [facility] [address] [phone] * (ABNORMAL) Comprehensive metabolic panel (06/29/2024 6:26 AM EST) Sodium 133(L) 136 - 146 meq/L 06/29/2024 7:31 AM [facility] Potassium 4.6 3.5 - 5.1 meq/L 06/29/2024 7:31 AM [facility] Chloride 100(L) 102 - 112 meq/L 06/29/2024 7:31 AM [facility] CO2 22 21 - 32 meq/L 06/29/2024 7:31 AM [facility] Calcium 8.2(L) 8.4 - 10.1 mg/dL 06/29/2024 7:31 AM [facility] Glucose 129(H) 74 - 106 mg/dL 06/29/2024 7:31 AM [facility] BUN 88(HH) 7 - 22 mg/dL 06/29/2024 7:31 AM [facility] Creatinine 14.20(H) 0.70 - 1.30 mg/dL 06/29/2024 7:31 AM [facility] BUN/Creatinine 6(L) 8 - 20 06/29/2024 7:31 AM [facility] Albumin 3.4 3.4 - 5.0 g/dL 06/29/2024 7:31 AM [facility] Alkaline Phosphatase 204(H) 27 - 136 U/L 06/29/2024 7:31 AM [facility] ALT 9(L) 16 - 61 U/L 06/29/2024 7:31 AM [facility] AST 15 5 - 37 U/L 06/29/2024 7:31 AM [facility] Total Bilirubin 0.7 0.2 - 1.2 mg/dL 06/29/2024 7:31 AM [facility] Protein, Total 7.0 6.4 - 8.2 gm/dL 06/29/2024 7:31 AM [facility] Anion Gap 16 9 - 20 06/29/2024 7:31 AM [facility] A/G Ratio 0.9(L) 1.1 - 2.5 06/29/2024 7:31 AM [facility] Globulin 3.6 1.5 - 4.5 g/dL 06/29/2024 7:31 AM EST [facility] Osmolality Calc 295.0 7:31 AM [facility] eGFR (mL/min/1.73m2) 4(L) >=60 mL/min/1. 73m2 06/29/2024 7:31 AM EST [facility] Comment:ESTIMATED GFR IS NOT ACCURATE CREATININE CLEARANCE IN PREDICTING GLOMERULAR FILTRATION RATE. ESTIMATED GFR IS NOT APPLICABLE FOR DIALYSIS PATIENTS. Blood Venipuncture / Unknown 06/29/2024 6:26 AM EST 06/29/2024 6:48 AM EST us Mandi Kearney PA-C LAB BLOOD ORDERABLES Final Resul t Performing Organization Address [facility] Co de Phone Number [facility] [address] [place] [address] * (ABNORMAL) Glucose, Nova Meter (06/29/2024 6:25 AM EST) POC-GLUCOSE 131(H) 70 - 110 mg/dL 06/29/2024 7:34 AM [facility] Comment:In the event of poor peripheral blood flow, venous or arterial blood should be used due to the potential of erroneous results. Operations And Maintenance Supervisor [phone] 06/29/2024 7:34 AM [facility] Blood WHOLE BLOOD / Unknown 06/29/2024 6:25 AM EST 06/29/2024 7:34 AM EST Narrative [facility] - 06/29/2024 7:34 AM EST Operations And Maintenance Supervisor ID is - [id number] us Huyen Levi MD POINT OF CARE TEST ORDERABLES Fi nal Result [facility] [address] [phone] * (ABNORMAL) Comprehensive metabolic panel (06/28/2024 11:34 PM EST) Sodium 135(L) 136 - 146 meq/L 06/29/2024 12:54 AM [facility] Potassium 4.6 3.5 - 5.1 meq/L 06/29/2024 12:54 AM [facility] Chloride 102 102 - 112 meq/L 06/29/2024 12:54 AM [facility] CO2 19(L) 21 - 32 meq/L 06/29/2024 12:54 AM [facility] Calcium 8.3(L) 8.4 - 10.1 mg/dL 06/29/2024 12:54 AM [facility] Glucose 133(H) 74 - 106 mg/dL 06/29/2024 12:54 AM [facility] BUN 81(HH) 7 - 22 mg/dL 06/29/2024 12:54 AM [facility] Creatinine 13.75(H) 0.70 - 1.30 mg/dL 06/29/2024 12:54 AM [facility] BUN/Creatinine 6(L) 8 - 20 06/29/2024 12:54 AM [facility] Albumin 3.4 3.4 - 5.0 g/dL 06/29/2024 12:54 AM [facility] Alkaline Phosphatase 201(H) 27 - 136 U/L 06/29/2024 12:54 AM [facility] ALT 11(L) 16 - 61 U/L 06/29/2024 12:54 AM [facility] AST 16 5 - 37 U/L 06/29/2024 12:54 AM [facility] Total Bilirubin 0.5 0.2 - 1.2 mg/dL 06/29/2024 12:54 AM [facility] Protein, Total 7.0 6.4 - 8.2 gm/dL 06/29/2024 12:54 AM [facility] Anion Gap 19 9 - 20 06/29/2024 12:54 AM [facility] A/G Ratio 0.9(L) 1.1 - 2.5 06/29/2024 12:54 AM [facility] Globulin 3.6 1.5 - 4.5 g/dL 06/29/2024 12:54 AM [facility] Osmolality Calc 296.4 12:54 AM [facility] eGFR (mL/min/1.73m2) 4(L) >=60 mL/min/1. 73m2 06/29/2024 12:54 AM [facility] Comment:ESTIMATED GFR IS NOT ACCURATE CREATININE CLEARANCE IN PREDICTING GLOMERULAR FILTRATION RATE. ESTIMATED GFR IS NOT APPLICABLE FOR DIALYSIS PATIENTS. Blood Venipuncture / Unknown 06/28/2024 11:34 PM EST 06/28/2024 11:41 PM EST us Mandi Kearney PA-C LAB BLOOD ORDERABLES Final Resul t [facility] [address] [phone] * (ABNORMAL) Comprehensive metabolic panel (06/28/2024 7:10 PM EST) Sodium 136 136 - 146 meq/L 06/28/2024 7:38 PM [facility] Potassium 4.5 3.5 - 5.1 meq/L 06/28/2024 7:38 PM [facility] Chloride 102 102 - 112 meq/L 06/28/2024 7:38 PM [facility] CO2 20(L) 21 - 32 meq/L 06/28/2024 7:38 PM [facility] Calcium 8.3(L) 8.4 - 10.1 mg/dL 06/28/2024 7:38 PM [facility] Glucose 106 74 - 106 mg/dL 06/28/2024 7:38 PM [facility] BUN 77(H) 7 - 22 mg/dL 06/28/2024 7:38 PM [facility] Creatinine 13.14(H) 0.70 - 1.30 mg/dL 06/28/2024 7:38 PM [facility] BUN/Creatinine 6(L) 8 - 20 06/28/2024 7:38 PM [facility] Albumin 3.5 3.4 - 5.0 g/dL 06/28/2024 7:38 PM [facility] Alkaline Phosphatase 205(H) 27 - 136 U/L 06/28/2024 7:38 PM [facility] ALT 12(L) 16 - 61 U/L 06/28/2024 7:38 PM [facility] AST 17 5 - 37 U/L 06/28/2024 7:38 PM [facility] Total Bilirubin 0.5 0.2 - 1.2 mg/dL 06/28/2024 7:38 PM [facility] Protein, Total 7.1 6.4 - 8.2 gm/dL 06/28/2024 7:38 PM [facility] Anion Gap 19 9 - 20 06/28/2024 7:38 PM [facility] A/G Ratio 1.0(L) 1.1 - 2.5 06/28/2024 7:38 PM [facility] Globulin 3.6 1.5 - 4.5 g/dL 06/28/2024 7:38 PM [facility] Osmolality Calc 295.3 7:38 PM [facility] eGFR (mL/min/1.73m2) 4(L) >=60 mL/min/1. 73m2 06/28/2024 7:38 PM [facility] Comment:ESTIMATED GFR IS NOT ACCURATE CREATININE CLEARANCE IN PREDICTING GLOMERULAR FILTRATION RATE. ESTIMATED GFR IS NOT APPLICABLE FOR DIALYSIS PATIENTS. Blood Venipuncture / Unknown 06/28/2024 7:10 PM EST 06/28/2024 7:17 PM EST us Mandi Kearney PA-C LAB BLOOD ORDERABLES Final Resul t [facility] [address] [phone] * IR CENTRAL VENOUS (06/28/2024 4:58 PM EST) Anatomical Region Laterality Modality Interventional R adiology [...] preserved after removal of catheter. ?? An 8-Bolivian sheath was then placed in the left [...] was preserved after removal of catheter. An 8-Bolivian sheath was then placed in the left [...] IV conscious sedation used. Humble Blankenship MD [facility] IR ORDERABLES Final Result * (ABNORMAL) Lactic Acid with reflex (SJ) (06/28/2024 10:19 AM EST) Lactic Acid Level (mmol/L) 0.3(L) 0.4 - 2.0 mmol/L 06/28/2024 10:40 AM EST [facility] Comment:If a Lactic Acid Lev el with Reflex if Indicated result is greater than 2.0, a Lactic Acid Level will be ordered to be collected 2 hours after the original collection time. Blood Venipuncture / Unknown 06/28/2024 10:19 AM EST 06/28/2024 10:19 AM EST us Mandi Kearney PA-C LAB BLOOD ORDERABLES Final Resul t [facility] [address] [place] [id number] [phone] * (ABNORMAL) Comprehensive metabolic panel (06/28/2024 10:19 AM EST) Sodium 136 136 - 146 meq/L 06/28/2024 10:55 AM [facility] Potassium 4.6 3.5 - 5.1 meq/L 06/28/2024 10:55 AM [facility] Chloride 104 102 - 112 meq/L 06/28/2024 10:55 AM [facility] CO2 24 21 - 32 meq/L 06/28/2024 10:55 AM [facility] Calcium 7.8(L) 8.4 - 10.1 mg/dL 06/28/2024 10:55 AM [facility] Glucose 98 74 - 106 mg/dL 06/28/2024 10:55 AM [facility] BUN 76(H) 7 - 22 mg/dL 06/28/2024 10:55 AM [facility] Creatinine 11.60(H) 0.70 - 1.30 mg/dL 06/28/2024 10:55 AM [facility] BUN/Creatinine 7(L) 8 - 20 06/28/2024 10:55 AM [facility] Albumin 3.8 3.4 - 5.0 g/dL 06/28/2024 10:55 AM [facility] Alkaline Phosphatase 228(H) 27 - 136 U/L 06/28/2024 10:55 AM [facility] ALT 12(L) 16 - 61 U/L 06/28/2024 10:55 AM [facility] AST 13 5 - 37 U/L 06/28/2024 10:55 AM [facility] Total Bilirubin 0.5 0.2 - 1.2 mg/dL 06/28/2024 10:55 AM [facility] Protein, Total 7.5 6.4 - 8.2 gm/dL 06/28/2024 10:55 AM [facility] Anion Gap 13 9 - 20 06/28/2024 10:55 AM [facility] A/G Ratio 1.0(L) 1.1 - 2.5 06/28/2024 10:55 AM [facility] Globulin 3.7 1.5 - 4.5 g/dL 06/28/2024 10:55 AM [facility] Osmolality Calc 294.5 10:55 AM [facility] eGFR (mL/min/1.73m2) 5(L) >=60 mL/min/1. 73m2 06/28/2024 10:55 AM [facility] Comment:ESTIMATED GFR IS NOT ACCURATE CREATININE CLEARANCE IN PREDICTING GLOMERULAR FILTRATION RATE. ESTIMATED GFR IS NOT APPLICABLE FOR DIALYSIS PATIENTS. Blood Venipuncture / Unknown 06/28/2024 10:19 AM EST 06/28/2024 10:19 AM EST Mandi Kearney PA-C LAB BLOOD ORDERABLES Final Resul t Performing Organization Address City/[facility]/ZIP Co de Phone Number [facility] [address] [phone] * (ABNORMAL) Phosphorus (06/28/2024 10:19 AM EST) Phosphorus 7.4(H) 2.5 - 4.9 mg/dL 06/28/2024 10:55 AM [facility] Blood Venipuncture / Unknown 06/28/2024 10:19 AM EST 06/28/2024 10:19 AM EST Mandi Kearney PA-C LAB BLOOD ORDERABLES Final Resul t Performing Organization Address City/[facility]/ZIP Co de Phone Number [facility] [address] [phone] * Magnesium (06/28/2024 10:19 AM EST) Magnesium 1.9 1.5 - 2.4 mg/dL 06/28/2024 10:55 AM [facility] Blood Venipuncture / Unknown 06/28/2024 10:19 AM EST 06/28/2024 10:19 AM EST us Mandi Kearney PA-C LAB BLOOD ORDERABLES Final Resul t [facility] [address] [phone] * (ABNORMAL) CBC with automated diff (06/28/2024 10:19 AM EST) WBC 7.5 4.2 - 9.1 K/??L 06/28/2024 12:28 PM [facility] RBC 3.11(L) 4.63 - 6.08 M/??L 06/28/2024 12:28 PM [facility] Hemoglobin 10.1(L) 13.7 - 17.5 GM/DL 06/28/2024 12:28 PM [facility] Hematocrit 32.3(L) 40.1 - 51.0 % 06/28/2024 12:28 PM [facility] MCV 104(H) 79 - 92 fL 06/28/2024 12:28 PM [facility] MCH 32.5(H) 25.7 - 32.2 pg 06/28/2024 12:28 PM [facility] MCHC 31.3(L) 32.3 - 36.5 GM/DL 06/28/2024 12:28 PM [facility] RDW 15.6(H) 11.6 - 14.4 % 06/28/2024 12:28 PM [facility] Platelets 232 140 - 375 K/CU MM 06/28/2024 12:28 PM [facility] MPV 9.7 9.4 - 12.4 fL 06/28/2024 12:28 PM [facility] % Neutros 70(H) 34 - 68 % 06/28/2024 12:28 PM [facility] % Lymphs 16(L) 22 - 53 % 06/28/2024 12:28 PM [facility] % Monos 5 5 - 12 % 06/28/2024 12:28 PM [facility] % Eos 2 1 - 7 % 06/28/2024 12:28 PM [facility] % Baso 0 0 - 1 % 06/28/2024 12:28 PM [facility] NRBC Absolute 0.03(H) 0 - 0.012 K/ul 06/28/2024 12:28 PM [facility] # Neutros 5.26 1.78 - 5.38 K/??L 06/28/2024 12:28 PM [facility] # Lymphs 1.21(L) 1.32 - 3.57 K/??L 06/28/2024 12:28 PM [facility] # Monos 0.40 0.30 - 0.82 K/??L 06/28/2024 12:28 PM [facility] # Eos 0.14 0.04 - 0.54 K/??L 06/28/2024 12:28 PM [facility] # Baso 0.03 0.01 - 0.08 K/??L 06/28/2024 12:28 PM [facility] Immature Granulocytes-Re lative 6.50(H) 0.01 - 0.43 % 06/28/2024 12:28 PM [facility] # IG 0.49(H) 0.00 - 0.03 K/uL 06/28/2024 12:28 PM [facility] Blood Venipuncture / Unknown 06/28/2024 10:19 AM EST 06/28/2024 10:19 AM EST Narrative [facility] - 06/28/2024 12:28 PM EST When [...] ORDERABLES Final Resul t Performing Organization Address [facility] Co de Phone Number [facility] [address] [phone] * (ABNORMAL) Glucose, Nova Meter (06/28/2024 6:41 AM EST) POC-GLUCOSE 122(H) 70 - 110 mg/dL 06/28/2024 6:42 AM EST [facility] Comment: In the event of poor peripheral blood flow, venous or arterial blood should be used due to the potential of erroneous results. Protocols Followed Operations And Maintenance Supervisor [phone] 06/28/2024 6:42 AM EST [facility] Blood WHOLE BLOOD / Unknown 06/28/2024 6:41 AM EST 06/28/2024 6:42 AM EST Narrative [facility] - 06/28/2024 6:42 AM EST Operations And Maintenance Supervisor ID is - [id number] Jay Strickland MD POINT OF CARE TEST ORDERABLES Fi nal Result Performing Organization Address [facility] Co de Phone Number [facility] [address] [phone] * XR chest AP portable (06/28/2024 4:18 AM EST) Anatomical Region Laterality Modality Chest X-Ray 06/28/2024 [...] Blood gas, arterial (06/28/2024 3:49 AM EST) pH, Arterial 7.11(LL) 7.35 - 7.45 06/28/2024 3:52 AM [facility] pCO2, Arterial 42 35 - 45 mm Hg 06/28/2024 3:52 AM [facility] pO2, Arterial 104(H) 80 - 100 mm Hg 06/28/2024 3:52 AM [facility] HCO3, Arterial 13(L) 20 - 26 mmol/L 06/28/2024 3:52 AM [facility] Base Excess, Arterial -15.7(L) -2.0 - 2.0 mmol/L 06/28/2024 3:52 AM [facility] O2 Sat, Arterial 96.0 95.0 - 100.0 % 06/28/2024 3:52 AM [facility] CTO2 ARTERIAL 13.9 mmol/L 06/28/2024 3:52 AM [facility] THB ARTERIAL 10.4(L) 12.0 - 18.0 g/dL 06/28/2024 3:52 AM [facility] COLLECTION SITE Right Radial 06/28/2024 3:52 AM [facility] Arterial Puncture Yes 06/28/2024 3:52 AM [facility] Blood Gas O2 Delivery Device Cannula 06/28/2024 3:52 AM [facility] Oxygen Flow Rate 2 06/28/20 3:52 AM [facility] Blood Gas PT Temperature C 37.0 06/28/2024 3:52 AM [facility] Michael's Test Acceptable 06/28/2024 3:52 AM [facility] Critical Values Notification Critical Blood gas called to JANA MATSON NOTIFIED . Results acknowledged/r ead back to [id number] and confirmed on 06/28/2024 03:51 06/28/2024 3:52 AM [facility] ABG Number of Draw Attempts 1 06/28/2024 3:52 AM [facility] FIO2 06/28/2024 3:52 AM [facility] Blood Gas Temperature Corrected Results No No 06/28/2024 3:52 AM [facility] Blood, Arterial ENTIRE RIGHT UPPER ARM / Unknown 06/28/2024 3:49 AM EST 06/28/2024 3:52 AM EST us Mandi Kearney PA-C LAB BLOOD ORDERABLES Final Resul t Performing Organization Address City/State/[facility] Co de Phone Number [facility] [address] [phone] * (ABNORMAL) Blood gas, arterial (06/28/2024 12:07 AM EST) pH, Arterial 7.04(LL) 7.35 - 7.45 06/28/2024 12:13 AM [facility] pCO2, Arterial 39 35 - 45 mm Hg 06/28/2024 12:13 AM [facility] pO2, Arterial 103(H) 80 - 100 mm Hg 06/28/2024 12:13 AM [facility] HCO3, Arterial 11(L) 20 - 26 mmol/L 06/28/2024 12:13 AM [facility] Base Excess, Arterial -19.0(L) -2.0 - 2.0 mmol/L 06/28/2024 12:13 AM [facility] O2 Sat, Arterial 95.1 95.0 - 100.0 % 06/28/2024 12:13 AM [facility] CTO2 ARTERIAL 14.4 mmol/L 06/28/2024 12:13 AM [facility] THB ARTERIAL 10.8(L) 12.0 - 18.0 g/dL 06/28/2024 12:13 AM [facility] COLLECTION SITE Right Radial 06/28/2024 12:13 AM [facility] Arterial Puncture Yes 06/28/2024 12:13 AM [facility] Blood Gas O2 Delivery Device Cannula 06/28/2024 12:13 AM [facility] Oxygen Flow Rate 3 06/28/20 24 12:13 AM [facility] Blood Gas PT Temperature C 37.0 06/28/2024 12:13 AM [facility] Michael's Test Acceptable 06/28/2024 12:13 AM [facility] Critical Values Notification Critical Blood gas called to NOTIFIED RAQUEL MATSON RN . Results acknowledged/r ead back to [id number] and confirmed on 06/28/2024 00:12 06/28/2024 12:13 AM [facility] ABG Number of Draw Attempts 1 06/28/2024 12:13 AM [facility] FIO2 06/28/2024 12:13 AM [facility] Blood Gas Temperature Corrected Results No No 06/28/2024 12:13 AM [facility] Blood, Arterial ENTIRE RIGHT UPPER ARM / Unknown 06/28/2024 12:07 AM EST 06/28/2024 12:13 AM EST us Mandi Kearney PA-C LAB BLOOD ORDERABLES Final Resul t [facility] [address] [phone] * XR chest AP portable (06/27/2024 11:58 PM EST) Anatomical Region Laterality Modality Chest X-Ray 06/28/2024 10:2 6 AM EST Impressions 06/28/2024 12:23 PM EST Cardiomegaly with vascular congestion. Images reviewed, interpreted, and dictated by Dr. Rohith Hogue. Transcribed by Mandi Villaseñor PA-C. Narrative 06/28/2024 12:23 PM EST PORTABLE CHEST HISTORY: Acute shortness of breath. COMPARISON: None. FINDINGS: The heart is enlarged in size with vascular congestion. The mediastinum is unremarkable. The lungs are clear. There is no pneumothorax. There is a left IJ dialysis catheter. Procedure Note Rohith Hogue MD - 06/28/2024 PORTABLE CHEST HISTORY: Acute shortness of breath. COMPARISON: None. FINDINGS: The heart is enlarged in size with vascular congestion. The mediastinum is unremarkable. The lungs are clear. There is no pneumothorax. There is a left IJ dialysis catheter. IMPRESSION: Cardiomegaly with vascular congestion. Images reviewed, interpreted, and dictated by Dr. Rohith Hogue. Transcribed by Mandi Villaseñor PA-C. us Mandi Kearney PA-C IMG DIAGNOSTIC IMAGING ORDERABLE S Final Result * Magnesium (06/27/2024 11:54 PM EST) Magnesium 1.9 1.5 - 2.4 mg/dL 06/28/2024 12:51 AM EST [facility] Blood VENOUS LINE / Unknown Collection / Unknown 06/27/2024 11:54 PM EST 06/27/2024 11:58 PM EST Mandi Kearney PA-C LAB BLOOD ORDERABLES Final Resul t Performing Organization Address City/[facility]/ZIP Co de Phone Number [facility] [address] [phone] * (ABNORMAL) Phosphorus (06/27/2024 11:54 PM EST) Phosphorus 10.5(H) 2.5 - 4.9 mg/dL 06/28/2024 12:51 AM EST [facility] Blood VENOUS LINE / Unknown Collection / Unknown 06/27/2024 11:54 PM EST 06/27/2024 11:58 PM EST Mandi Kearney PA-C LAB BLOOD ORDERABLES Final Resul t [facility] [address] [place] [address], [facility] [phone] * (ABNORMAL) Comprehensive metabolic panel (06/27/2024 11:54 PM EST) Sodium 138 136 - 146 meq/L 06/28/2024 12:51 AM [facility] Potassium 6.7(HH) 3.5 - 5.1 meq/L 06/28/2024 12:51 AM [facility] Chloride 112 102 - 112 meq/L 06/28/2024 12:51 AM [facility] CO2 14(L) 21 - 32 meq/L 06/28/2024 12:51 AM [facility] Calcium 7.7(L) 8.4 - 10.1 mg/dL 06/28/2024 12:51 AM [facility] Glucose 85 74 - 106 mg/dL 06/28/2024 12:51 AM [facility] BUN 116(HH) 7 - 22 mg/dL 06/28/2024 12:51 AM [facility] Creatinine 16.80(H) 0.70 - 1.30 mg/dL 06/28/2024 12:51 AM [facility] BUN/Creatinine 7(L) 8 - 20 06/28/2024 12:51 AM [facility] Albumin 3.6 3.4 - 5.0 g/dL 06/28/2024 12:51 AM [facility] Alkaline Phosphatase 221(H) 27 - 136 U/L 06/28/2024 12:51 AM [facility] ALT 10(L) 16 - 61 U/L 06/28/2024 12:51 AM [facility] AST 14 5 - 37 U/L 06/28/2024 12:51 AM [facility] Total Bilirubin 0.6 0.2 - 1.2 mg/dL 06/28/2024 12:51 AM [facility] Protein, Total 7.2 6.4 - 8.2 gm/dL 06/28/2024 12:51 AM [facility] Anion Gap 19 9 - 20 06/28/2024 12:51 AM [facility] A/G Ratio 1.0(L) 1.1 - 2.5 06/28/2024 12:51 AM EST [facility] [facility] Globulin 3.6 1.5 - 4.5 g/dL 06/28/2024 12:51 AM EST [facility] Osmolality Calc 311.8 12:51 AM EST [facility] eGFR (mL/min/1.73m2) 3(L) >=60 mL/min/1. 73m2 06/28/2024 12:51 AM EST [facility] Comment:ESTIMATED GFR IS NOT ACCURATE CREATININE CLEARANCE IN PREDICTING GLOMERULAR FILTRATION RATE. ESTIMATED GFR IS NOT APPLICABLE FOR DIALYSIS PATIENTS. Blood VENOUS LINE / Unknown Collection / Unknown 06/27/2024 11:54 PM EST 06/27/2024 11:58 PM EST us Mandi Kearney PA-C LAB BLOOD ORDERABLES Final Resul t Performing Organization Address City/State/[facility] Co de Phone Number [facility] [address] [phone] documented in this encounter Visit Diagnoses Diagnosis Hyperkalemia- Primary Hyperpotassemia documented in this encounter Admitting Diagnoses Diagnosis Hyperkalemia Hyperpotassemia documented in this encounter Administered Medications Inactive Administered Medications - up to 3 most recent administrations Medication Order MAR Action Action Date Dose Rate Site acetaminophen (TYLENOL) tablet 1,000 mg 1,000 mg Every 6 hours PRN, oral, mild pain (1-3), and severe pain (7-10), Starting on Bobbi 06/27/24 at 2321, Recommended maximum dose of acetaminophen is 4000 mg from all sources in 24 hours Given 06/30/2024 8:38 AM EST 1,000 mg Given 06/28/2024 8:24 PM EST 1,000 mg ALPRAZolam (XANAX) tablet 0.5 mg 0.5 mg 2 times daily PRN, oral, anxiety, insomnia, Starting on Bobbi 06/27/24 at 2323 Given 06/28/2024 9:57 PM EST 0 .5 mg Given 06/28/2024 2:22 AM EST 0.5 mg aspirin chewable tablet 81 mg 81 mg Daily, oral, First dose on Mon06/28/24 at 0900 Given 06/30/2024 8:00 AM EST 81 mg Given 06/29/2024 7:46 AM EST 81 mg Given 06/28/2024 8:29 AM EST 81 mg calcitRIOL (ROCALTROL) capsule 0.25 mcg 0.25 mcg Daily, oral, First dose on Mon06/29/24 at 0900 Given 06/30/2024 8:55 AM EST 0.25 mcg Given 06/29/2024 9:31 AM EST 0.25 mcg carvediloL (COREG) tablet 25 mg 25 mg 2 times daily with breakfast and dinner, oral, First dose on Mon06/28/24 at 0800, Hold for systolic BP < 90 mmHg or for HR < 50 BPM Given 06/30/2024 7:59 AM EST 25 mg Given 06/29/2024 4:55 PM EST 25 mg Given 06/29/2024 7:45 AM EST 25 mg ceFAZolin (ANCEF) injection IMG once as needed, intravenous, Starting on Mon06/28/24 at 1608, For 1 dose, Intra-op Given 06/28/2024 4:08 PM EST 3 g cinacalcet (SENSIPAR) tablet 180 mg 180 mg Daily with dinner, oral, First dose on Mon06/28/24 at 1830, * DO NOT CRUSH THIS DOSAGE FORM * Given 06/29/2024 4:55 PM EST 180 mg Given 06/28/2024 6:45 PM EST 180 mg cycloSPORINE (SandIMMUNE) capsule 100 mg 100 mg Every morning, oral, First dose on Mon06/29/24 at 0800, Caution: Recommend wearing gloves during administration. DO NOT BREAK/CRUSH/CHEW. Employees who are , trying to become , or should not handle this medication. Dispose of trace medication (including packaging) in the BLACK waste bin. Given 06/30/2024 8:56 AM EST 100 mg Given 06/29/2024 9:32 AM EST 100 mg cycloSPORINE (SandIMMUNE) capsule 125 mg 125 mg Every evening, oral, First dose on Mon06/28/24 at 1830, Caution: Recommend wearing gloves during administration. DO NOT BREAK/CRUSH/CHEW. Employees who are , trying to become , or should not handle this medication. Dispose of trace medication (including packaging) in the BLACK waste bin. Given 06/29/2024 4:56 PM EST 125 mg Given 06/28/2024 6:48 PM EST 125 mg dexmedeTOMIDine (PRECEDEX) 400 mcg in sodium chloride 0.9% 100 mL (4 mcg/mL) infusion (premix) 0.1-1.5 mcg/kg/hr ? 98.5 kg Adjusted weight Titrated (2.4625-36.9375 mL/hr, rounded to 2.5-36.9 mL/hr), intravenous, Starting on Mon06/28/24 at 0400 New Bag 06/28/2024 5:03 AM EST 0.2 mcg/kg/hr 4.9 mL /hr dextrose 50% (D50W) injection 25 g 25 g Once (50 mL), intravenous, On Mon06/28/24 at 0400, For 1 dose Given 06/28/2024 3:54 AM EST 25 g dextrose 50% (D50W) injection 25 g 25 g Once (50 mL), intravenous, On Mon06/28/24 at 0400, For 1 dose Given 06/28/2024 3:54 AM EST 25 g dextrose 50% (D50W) injection 25 g 25 g Every 15 min PRN, intravenous, low blood glucose (specify value in prn comments), less than 41 mg/dL or 41-69 mg/dL and unable to take PO, Starting on 06/29/24 at 2215, Repeat blood glucose every 15 minutes until blood glucose greater than 70 mg/dL. Call Provider if not resolved after 2 treatments Repeat BS in 1 hour, retime for 1 hour after blood sugar greater than 70 mg/dL If less than 41: Repeat Finger stick within 5 minutes with same machine Send serum glucose level: Do not wait on lab to treat diphenhydrAMINE (BENADRYL) injection 25 mg 25 mg Every 6 hours PRN, intravenous, itching, Starting on Mon06/28/24 at 0023 Given 06/29/2024 8:38 PM EST 25 mg Given 06/29/2024 11:09 AM EST 25 mg Given 06/29/2024 5:23 AM EST 25 mg docusate sodium (COLACE) capsule 100 mg 100 mg 2 times daily PRN, oral, constipation, Starting on Bobbi 06/27/24 at 2321, Bowel Regimen - for prevention of constipation. entecavir (BARACLUDE) tablet 0.5 mg 0.5 mg Daily, oral, First dose on Mon06/28/24 at 1400, Administer on an empty stomach (2 hours before or after a meal) Caution: Recommend wearing gloves during administration. DO NOT BREAK/CRUSH/CHEW. Employees who are , trying to become , or should not handle this medication. Dispose of trace medication (including packaging) in the BLACK waste bin. Given 06/28/2024 5:25 PM EST 0.5 mg entecavir (BARACLUDE) tablet 0.5 mg 0.5 mg Weekly, oral, First dose (after last modification) on Mon07/05/24 at 0900, Administer on an empty stomach (2 hours before or after a meal) Caution: Recommend wearing gloves during administration. DO NOT BREAK/CRUSH/CHEW. Employees who are , trying to become , or should not handle this medication. Dispose of trace medication (including packaging) in the BLACK waste bin. fentaNYL PF (SUBLIMAZE) injection IMG once as needed, intravenous, Starting on Mon06/28/24 at 1628, For 1 dose, Intra-op Given 06/28/2024 4:28 PM EST 25 mcg fluticasone propionate (FLONASE) 50 mcg/actuation nasal spray 2 spray 2 spray Daily, each nostril, First dose on Mon06/28/24 at 1830, MULTI-DOSE BOTTLE Please store carefully after each dose and transfer with patient should they transfer to a different room or unit Therapeutic Interchange for Nasonex (mometasone) Given 06/30/2024 9:00 AM EST 2 sprays Given 06/29/2024 9:33 AM EST 2 sprays Given 06/28/2024 6:44 PM EST 2 sprays gabapentin (NEURONTIN) capsule 100 mg 100 mg 2 times daily, oral, First dose on Mon06/28/24 at 0000 Given 06/30/2024 8:00 AM EST 100 mg Given 06/29/2024 8:39 PM EST 100 mg Given 06/29/2024 7:45 AM EST 100 mg glucagon injection 1 mg 1 mg Every 15 min PRN, intraMUSCULAR, low blood glucose (specify value in prn comments), For Patients without IV access and blood glucose 41-69 mg/dL AND unable to take PO OR Less than 41 mg/dL, Starting on 06/29/24 at 2215, Caution: glucagon . Roll patient on their side when administering to prevent aspiration. Call Provider if not resolved after 2 treatments Repeat BS in 1 hour, retime for 1 hour after blood sugar greater than 70 mg/dL glucose chew tab 16 g 16 g Every 15 min PRN, oral, low blood glucose (specify value in prn comments), 41-69 mg/dL, Starting on 06/29/24 at 2215, For Patients who can take oral AND blood glucose 41-69 mg/dL Give 4 Tabs every 15 minutes. Recheck blood glucose every 15 minutes and repeat 15 grams of carbohydrates until blood glucose is above 70 mg/dL. Give Meal or Snack Call Provider if not resolved after 3 treatments Repeat BS in 1 hour, retime for 1 hour after blood sugar greater than 70 mg/dL guaiFENesin (ROBITUSSIN) 100 mg/5 mL syrup 100 mg 100 mg Every 4 hours PRN, oral, congestion, Starting on Mon06/28/24 at 1524, Look-alike/Sound-alike medication Given 06/29/2024 7:45 AM EST 100 mg Given 06/29/2024 5:23 AM EST 100 mg Given 06/28/2024 11:56 PM EST 100 mg heparin 1,000 Units/mL injection IMG once as needed, intravenous, Starting on Mon06/28/24 at 1654, For 1 dose, Intra-op Given 06/28/2024 4:54 PM EST 1,000 Units heparin 1,000 Units/mL injection IMG once as needed, intravenous, Starting on Mon06/28/24 at 1654, For 1 dose, Intra-op Given 06/28/2024 4:54 PM EST 1,000 Units heparin injection 5,000 Units 5,000 Units Every 12 hours scheduled, subcutaneous, First dose on Mon06/28/24 at 0000 Given 06/30/2024 8:00 AM EST 5,000 Units Abdominal Tissue Given 06/29/2024 8:38 PM EST 5,000 Units A bdominal Tissue Given 06/29/2024 7:46 AM EST 5,000 Units A bdominal Tissue hydrALAZINE (APRESOLINE) injection 10 mg 10 mg Every 6 hours PRN, intravenous, hypertension (sbp greater than 160), Starting on Bobbi 06/27/24 at 2321, Hold if SBP < 100 mmHg, DBP < 50 mmHg, or patient is on pressor. Look-alike/Sound-alike medication Given 06/30/2024 7:02 AM EST 10 mg Given 06/28/2024 11:30 PM EST 10 mg Given 06/28/2024 12:53 AM EST 10 mg insulin lispro (HUMALOG, ADMELOG) injection 0-18 Units 0-18 Units 4 times daily (before meals and nightly), subcutaneous, First dose on Mon06/30/24 at 1200, If Blood Sugar is less than 180 beteween 4238-8120, DO NOT give corrective insulin unless otherwise ordered. Corrective Scale C 0 units for fingerstick blood glucose LESS than 140 mg/dL 3 units subcutaneously once for fingerstick blood glucose [140] - [180] mg/dL 6 units subcutaneously once for fingerstick blood glucose [181] - [220] mg/dL 9 units subcutaneously once for fingerstick blood glucose [221] - [260] mg/dL 12 units subcutaneously once for fingerstick blood glucose [261] - [300] mg/dL 15 units subcutaneously once for fingerstick blood glucose [301] - [350] mg/dL 18 units subcutaneously once for fingerstick blood glucose [351] - [400] mg/dL Notify provider of glucose levels LESS than [70] and GREATER than [400] insulin regular (HUMULIN R,NOVOLIN R) injection 5 Units Once, intravenous, On Mon06/28/24 at 0400, For 1 dose, If blood sugar is less than 180 between 8188-3300, DO NOT give corrective insulin unless otherwise ordered. Given 06/28/2024 3:55 AM EST 5 Units Chest iopamidoL (ISOVUE-300) 300 mg iodine /mL (61 %) injection IMG once as needed, Starting on Mon06/28/24 at 1655, For 1 dose, Intra-op Given 06/28/2024 4:55 PM EST 30 mLs ipratropium-albuteroL (DUO-NEB) 0.5 mg-3 mg(2.5 mg base)/3 mL nebulizer solution 3 mL 3 mL Every 6 hours PRN, nebulization, wheezing, shortness of breath, Starting on Bobbi 06/27/24 at 2322, RESPIRATORY THERAPY TREATMENT Protect from Light, What is the respiratory therapy Modality? Small volume Nebulization lidocaine (PF) 10 mg/mL (1 %) injection Starting on Mon06/28/24 at 0739, For 1 dose, Created by cabinet override Given 06/28/2024 8:00 AM EST lidocaine (PF) injection 10 mg/mL (1%) IMG once as needed, intradermal, Starting on Mon06/28/24 at 1630, For 1 dose, Intra-op Given 06/28/2024 4:30 PM EST 10 mLs Left Upper Chest melatonin tablet 3 mg 3 mg Every Night PRN, oral, insomnia, Starting on Bobbi 06/27/24 at 2321 midazolam (PF) (VERSED) injection IMG once as needed, intravenous, Starting on Mon06/28/24 at 1629, For 1 dose, Intra-op Given 06/28/2024 4:29 PM EST 0.5 mg midazolam (VERSED) 1 mg/mL injection Starting on Mon06/28/24 at 0237, For 1 dose, Created by cabinet override Look-alike/Sound-alike medication. Contains Benzyl Alcohol midazolam (VERSED) injection 2 mg 2 mg Once, intravenous, On Mon06/28/24 at 0400, For 1 dose, Look-alike/Sound-alike medication. Contains Benzyl Alcohol Given 06/28/2024 4:07 AM EST 2 mg morphine injection 2 mg 2 mg Every 4 hours PRN, intravenous, moderate pain (4-6), severe pain (7-10), Starting on Bobbi 06/27/24 at 2321, If unable to take PO for same pain scale if ordered If inadequate response (less than 50% reduction in pain score) within 60 minutes, proceed to next-line agent for same PRN reason or contact provider if no further options ordered. Given 06/29/2024 8:38 PM EST 2 mg Given 06/29/2024 9:41 AM EST 2 mg Given 06/29/2024 3:00 AM EST 2 mg mycophenolate mofetil (CELLCEPT) capsule 250 mg 250 mg 2 times daily, oral, First dose on Mon06/28/24 at 0000, * DO NOT CRUSH THIS DOSAGE FORM * Caution: Recommend wearing gloves during administration. DO NOT BREAK/CRUSH/CHEW. Employees who are , trying to become , or should not handle this medication. Dispose of trace medication (including packaging) in the BLACK waste bin. Given 06/30/2024 6:58 AM EST 250 mg Given 06/29/2024 8:39 PM EST 250 mg Given 06/29/2024 5:15 AM EST 250 mg naloxone (NARCAN) injection 0.2 mg 0.2 mg Every 2 min PRN, intravenous, opioid reversal, respiratory depression, Starting on Bobbi 06/27/24 at 2321, Give for respiratory rate less than 10 breaths/min or if patient is difficult to arouse. Max dose = 10 mg. Call provider. NIFEdipine (PROCARDIA-XL) 24 hr tablet 90 mg 90 mg Daily, oral, First dose on Mon06/28/24 at 0900, Do Not Crush or Chew Antihypertensive - Check BP - Check Pulse * DO NOT CRUSH THIS DOSAGE FORM * Given 06/30/2024 9:01 AM EST 90 mg Given 06/29/2024 7:56 AM EST 90 mg ondansetron (ZOFRAN-ODT) disintegrating tablet 4 mg 4 mg Every 8 hours PRN, oral, nausea, vomiting, Starting on Bobbi 06/27/24 at 2321, 1st line. If inadequate response within 60 minutes, proceed to next-line agent for same PRN reason or contact provider if no further options ordered. ondansetron PF (ZOFRAN) injection 4 mg 4 mg Every 8 hours PRN, intravenous, nausea, vomiting, Starting on Bobbi 06/27/24 at 2321, Give IV if patient is unable to take orally. 1st line If inadequate response within 60 minutes, proceed to next-line agent for same PRN reason or contact provider if no further options ordered. For IV push, give over 2 - 5 minutes. Given 06/30/2024 2:31 AM EST 4 mg oxyCODONE (ROXICODONE) immediate release tablet 5 mg 5 mg Every 4 hours PRN, oral, moderate pain (4-6), Starting on Bobbi 06/27/24 at 2322, Look-alike/Sound-alike medication Given 06/28/2024 2:42 PM EST 5 mg Given 06/28/2024 12:32 AM EST 5 mg pantoprazole (PROTONIX) EC tablet 40 mg 40 mg Daily, oral, First dose on 06/29/24 at 1630, * DO NOT CRUSH THIS DOSAGE FORM * Given 06/30/2024 8:00 AM EST 4 0 mg Given 06/29/2024 4:55 PM EST 40 mg pantoprazole (PROTONIX) injection 40 mg 40 mg Every evening, intravenous, First dose on Mon06/28/24 at 0000, * DILUTE IN 10 ML NS AND GIVE IV SLOWLY OVER 3 MINUTES * Given 06/28/2024 5:25 PM EST 40 mg Given 06/28/2024 1:09 AM EST 40 mg polyethylene glycol (GLYCOLAX) packet 17 g 17 g Daily as needed, oral, constipation, Starting on Bobbi 06/27/24 at 2321, Bowel Regimen - for prevention of constipation. sodium bicarbonate 8.4 % (1 mEq/mL) injection syringe 50 mEq 50 mEq Once, intravenous, On Mon06/28/24 at 0100, For 1 dose Given 06/28/2024 12:48 AM EST 50 mEq sodium bicarbonate 8.4 % (1 mEq/mL) injection syringe 50 mEq 50 mEq Once, intravenous, On Mon06/28/24 at 0100, For 1 dose Given 06/28/2024 12:47 AM EST 50 mEq sodium bicarbonate 8.4 % (1 mEq/mL) injection syringe 50 mEq 50 mEq Once, intravenous, On Mon06/28/24 at 0100, For 1 dose Given 06/28/2024 12:47 AM EST 50 mEq sodium bicarbonate 8.4 % (1 mEq/mL) injection syringe 50 mEq 50 mEq Once, intravenous, On Mon06/28/24 at 0530, For 1 dose Given 06/28/2024 5:43 AM EST 50 mEq sodium bicarbonate 8.4 % (1 mEq/mL) injection syringe 50 mEq 50 mEq Once, intravenous, On Mon06/28/24 at 0530, For 1 dose Given 06/28/2024 5:42 AM EST 50 mEq sodium chloride flush 10 mL 10 mL As needed, intravenous, line care, Starting on Bobbi 06/27/24 at 2321, Every 8 hours and PRN to flush sodium zirconium cyclosilicate (LOKELMA) packet 10 g 10 g Every 8 hours scheduled, oral, First dose on Mon06/28/24 at 0130, For 3 doses, Administer other oral meds 2 hrs before or 2 hrs after Lokelma. Empty entire contents of pkt(s) into a drinking glass containing about 3 tbsp of water or more, if desired. Stir well & drink immediately. If powder remains in drinking glass, add water, stir, & drink immediately. Repeat until no powder remains to ensure the entire dose is taken. Given 06/28/2024 8:09 PM EST 10 g Given 06/28/2024 1:27 AM EST 10 g documented in this encounter Active and Recently Administered Medications Times are shown in EST. Scheduled Medication Order 06/28/2024 06/29/2024 06/30/2024 aspirin chewable tablet 81 mg 81 mg Daily, oral, First dose on Mon06/28/24 at 0900 0829 (Given - Provider: Danyelle Torres) 0746 (Given - Provider: Danyelle Torres)0812 (Not Given - Provider: Danyelle Torres - Reason: Dose previously given) 0800 (Given - Provider: Ayaz Mejias, JANA) calcitRIOL (ROCALTROL) capsule 0.25 mcg 0.25 mcg Daily, oral, First dose on Mon06/29/24 at 0900 0931 (Given - Provider: Danyelle Torres) 0855 (Given - Provider: Ayaz Mejias, RN) carvediloL (COREG) tablet 25 mg 25 mg 2 times daily with breakfast and dinner, oral, First dose on Mon06/28/24 at 0800, Hold for systolic BP < 90 mmHg or for HR < 50 BPM 0834 (Given - Provider: Danyelle Torres)1744 (Given - Provider: Danyelle Torres) 0745 (Given - Provider: Danyelle Torres)1655 (Given - Provider: Danyelle Torres) 0759 (Given - Provider: Ayaz Mejias, JANA) cinacalcet (SENSIPAR) tablet 180 mg 180 mg Daily with dinner, oral, First dose on Mon06/28/24 at 1830, * DO NOT CRUSH THIS DOSAGE FORM * 1845 (Given - Provider: Danyelle Torres) 1655 (Given - Provider: Danyelle Torres) cycloSPORINE (SandIMMUNE) capsule 100 mg 100 mg Every morning, oral, First dose on Mon06/29/24 at 0800, Caution: Recommend wearing gloves during administration. DO NOT BREAK/CRUSH/CHEW. Employees who are , trying to become , or should not handle this medication. Dispose of trace medication (including packaging) in the BLACK waste bin. 0932 (Given - Provider: Danyelle Torres) 0856 (Given - Provider: Ayaz Mejias RN) cycloSPORINE (SandIMMUNE) capsule 125 mg 125 mg Every evening, oral, First dose on Mon06/28/24 at 1830, Caution: Recommend wearing gloves during administration. DO NOT BREAK/CRUSH/CHEW. Employees who are , trying to become , or should not handle this medication. Dispose of trace medication (including packaging) in the BLACK waste bin. 1848 (Given - Provider: Danyelle Torres) 1656 (Given - Provider: Danyelle Torres) dextrose 50% (D50W) injection 25 g (COMPLETED) 25 g Once (50 mL), intravenous, On Mon06/28/24 at 0400, For 1 dose 0354 (Given - Provider: Julian Corcoran RN) dextrose 50% (D50W) injection 25 g (COMPLETED) 25 g Once (50 mL), intravenous, On Mon06/28/24 at 0400, For 1 dose 0354 (Given - Provider: Julian Corcoran RN) entecavir (BARACLUDE) tablet 0.5 mg (CANCELED) 0.5 mg Daily, oral, First dose on Mon06/28/24 at 1400, Administer on an empty stomach (2 hours before or after a meal) Caution: Recommend wearing gloves during administration. DO NOT BREAK/CRUSH/CHEW. Employees who are , trying to become , or should not handle this medication. Dispose of trace medication (including packaging) in the BLACK waste bin. 1725 (Given - Provider: Danyelle Torres) entecavir (BARACLUDE) tablet 0.5 mg 0.5 mg Weekly, oral, First dose (after last modification) on Mon07/05/24 at 0900, Administer on an empty stomach (2 hours before or after a meal) Caution: Recommend wearing gloves during administration. DO NOT BREAK/CRUSH/CHEW. Employees who are , trying to become , or should not handle this medication. Dispose of trace medication (including packaging) in the BLACK waste bin. fluticasone propionate (FLONASE) 50 mcg/actuation nasal spray 2 spray 2 spray Daily, each nostril, First dose on Mon06/28/24 at 1830, MULTI-DOSE BOTTLE Please store carefully after each dose and transfer with patient should they transfer to a different room or unit Therapeutic Interchange for Nasonex (mometasone) 1844 (Given - Provider: Danyelle Torres) 0933 (Given - Provider: Danyelle Torres) 0900 (Given - Provider: Ayaz Mejias, JANA) gabapentin (NEURONTIN) capsule 100 mg 100 mg 2 times daily, oral, First dose on Mon06/28/24 at 0000 0032 (Given - Provider: Raquel Matson RN)0829 (Given - Provider: Danyelle Torres)2019 (Not Given - Provider: Renato Miller RN - Reason: Patient/family refused) 0745 (Given - Provider: Danyelle Torres)08 (Not Given - Provider: Danyelle Torres - Reason: Dose previously given)2038 (Given - Provider: Carri Marino RN) 0800 (Given - Provider: Ayaz Mejias RN) heparin injection 5,000 Units 5,000 Units Every 12 hours scheduled, subcutaneous, First dose on Mon06/28/24 at 0000 0109 (Given - Provider: Raquel Matson RN)0829 (Given - Provider: Danyelle Torres)2008 (Given - Provider: Renato Miller RN) 0746 (Given - Provider: Danyelle Torres)08 (Not Given - Provider: Danyelle Torres - Reason: Dose previously given)2037 (Given - Provider: Carri Marino RN) 0800 (Given - Provider: Ayaz Mejias, JANA) insulin lispro (HUMALOG, ADMELOG) injection 0-18 Units 0-18 Units 4 times daily (before meals and nightly), subcutaneous, First dose on Mon06/30/24 at 1200, If Blood Sugar is less than 180 beteween 7457-1920, DO NOT give corrective insulin unless otherwise ordered. Corrective Scale C 0 units for fingerstick blood glucose LESS than 140 mg/dL 3 units subcutaneously once for fingerstick blood glucose [140] - [180] mg/dL 6 units subcutaneously once for fingerstick blood glucose [181] - [220] mg/dL 9 units subcutaneously once for fingerstick blood glucose [221] - [260] mg/dL 12 units subcutaneously once for fingerstick blood glucose [261] - [300] mg/dL 15 units subcutaneously once for fingerstick blood glucose [301] - [350] mg/dL 18 units subcutaneously once for fingerstick blood glucose [351] - [400] mg/dL Notify provider of glucose levels LESS than [70] and GREATER than [400] 1200 (Due) insulin regular (HUMULIN R,NOVOLIN R) injection (COMPLETED) 5 Units Once, intravenous, On Mon06/28/24 at 0400, For 1 dose, If blood sugar is less than 180 between 9593-5598, DO NOT give corrective insulin unless otherwise ordered. 0355 (Given - Provider: Julian Corcoran RN) midazolam (VERSED) injection 2 mg (COMPLETED) 2 mg Once, intravenous, On Mon06/28/24 at 0400, For 1 dose, Look-alike/Sound-alike medication. Contains Benzyl Alcohol 0407 (Given - Provider: Raquel Matson RN) mycophenolate mofetil (CELLCEPT) capsule 250 mg 250 mg 2 times daily, oral, First dose on Mon06/28/24 at 0000, * DO NOT CRUSH THIS DOSAGE FORM * Caution: Recommend wearing gloves during administration. DO NOT BREAK/CRUSH/CHEW. Employees who are , trying to become , or should not handle this medication. Dispose of trace medication (including packaging) in the BLACK waste bin. 0121 (Not Given - Provider: Raquel Matson RN - Reason: Medication/ Dose Unavailable - Comment: new order)0837 (Given - Provider: Danyelle Torres)2007 (Given - Provider: Renato Miller, JANA) 0515 (Given - Provider: Renato Miller, JANA)2038 (Given - Provider: Carri Marino RN) 06 (Given - Provider: Carri Marino RN) NIFEdipine (PROCARDIA-XL) 24 hr tablet 90 mg 90 mg Daily, oral, First dose on Mon06/28/24 at 0900, Do Not Crush or Chew Antihypertensive - Check BP - Check Pulse * DO NOT CRUSH THIS DOSAGE FORM * 0837 (Hold - Provider: Danyelle Torres - Reason: Other (with Comment) - Comment: hd coming to run) 0756 (Given - Provider: Danyelle Torres)0813 (Not Given - Provider: Danyelle Torres - Reason: Dose previously given) 0901 (Given - Provider: Ayaz Mejias, JANA) pantoprazole (PROTONIX) EC tablet 40 mg 40 mg Daily, oral, First dose on Mon06/29/24 at 1630, * DO NOT CRUSH THIS DOSAGE FORM * 1655 (Given - Provider: Danyelle Torres) 0800 (Given - Provider: Ayaz Mejias, JANA) pantoprazole (PROTONIX) injection 40 mg (CANCELED) 40 mg Every evening, intravenous, First dose on Mon06/28/24 at 0000, * DILUTE IN 10 ML NS AND GIVE IV SLOWLY OVER 3 MINUTES * 0109 (Given - Provider: Raquel Matson RN)1725 (Given - Provider: Danyelle Torres) sodium bicarbonate 8.4 % (1 mEq/mL) injection syringe 50 mEq (COMPLETED)(Linked Group 1) 50 mEq Once, intravenous, On Mon06/28/24 at 0100, For 1 dose 0048 (Given - Provider: Raquel Matson RN) sodium bicarbonate 8.4 % (1 mEq/mL) injection syringe 50 mEq (COMPLETED)(Linked Group 1) 50 mEq Once, intravenous, On Mon06/28/24 at 0100, For 1 dose 0047 (Given - Provider: Raquel Matson RN) sodium bicarbonate 8.4 % (1 mEq/mL) injection syringe 50 mEq (COMPLETED)(Linked Group 1) 50 mEq Once, intravenous, On Mon06/28/24 at 0100, For 1 dose 0047 (Given - Provider: Raquel Matson RN) sodium bicarbonate 8.4 % (1 mEq/mL) injection syringe 50 mEq (COMPLETED)(Linked Group 2) 50 mEq Once, intravenous, On Mon06/28/24 at 0530, For 1 dose 0543 (Given - Provider: Raquel Matson RN) sodium bicarbonate 8.4 % (1 mEq/mL) injection syringe 50 mEq (COMPLETED)(Linked Group 2) 50 mEq Once, intravenous, On Mon06/28/24 at 0530, For 1 dose 0542 (Given - Provider: Raquel Matson RN) sodium zirconium cyclosilicate (LOKELMA) packet 10 g () 10 g Every 8 hours scheduled, oral, First dose on Mon06/28/24 at 0130, For 3 doses, Administer other oral meds 2 hrs before or 2 hrs after Lokelma. Empty entire contents of pkt(s) into a drinking glass containing about 3 tbsp of water or more, if desired. Stir well & drink immediately. If powder remains in drinking glass, add water, stir, & drink immediately. Repeat until no powder remains to ensure the entire dose is taken. 0127 (Given - Provider: Raquel Matson RN)1443 (Not Given - Provider: Danyelle Torres - Reason: Contraindicated - Comment: k 4.6)2008 (Given - Provider: Renato Miller RN) Continuous Medication Order 06/28/2024 06/29/2024 06/30/2024 dexmedeTOMIDine (PRECEDEX) 400 mcg in sodium chloride 0.9% 100 mL (4 mcg/mL) infusion (premix) (CANCELED) 0.1-1.5 mcg/kg/hr ? 98.5 kg Adjusted weight Titrated (2.4625-36.9375 mL/hr, rounded to 2.5-36.9 mL/hr), intravenous, Starting on Mon06/28/24 at 0400 0503 (New Bag - Provider: Raquel Matson RN)0530 (Stopped - Provider: Raquel Matson RN - Comment: Patient declined bipap x 3) PRN Medication Order 06/28/2024 06/29/2024 06/30/2024 acetaminophen (TYLENOL) tablet 1,000 mg 1,000 mg Every 6 hours PRN, oral, mild pain (1-3), and severe pain (7-10), Starting on Bobbi 06/27/24 at 2321, Recommended maximum dose of acetaminophen is 4000 mg from all sources in 24 hours 2023 (Given - Provider: Renato Miller RN) 0838 (Given - Provider: Ayaz Mejias RN) ALPRAZolam (XANAX) tablet 0.5 mg 0.5 mg 2 times daily PRN, oral, anxiety, insomnia, Starting on Bobbi 06/27/24 at 2323 0222 (Given - Provider: Raquel Matson RN)2157 (Given - Provider: Marisol Foster RN) ceFAZolin (ANCEF) injection (COMPLETED) IMG once as needed, intravenous, Starting on Mon06/28/24 at 1608, For 1 dose, Intra-op 1608 (Given - Provider: Ronald Brooks RN) dextrose 50% (D50W) injection 25 g 25 g Every 15 min PRN, intravenous, low blood glucose (specify value in prn comments), less than 41 mg/dL or 41-69 mg/dL and unable to take PO, Starting on 06/29/24 at 2215, Repeat blood glucose every 15 minutes until blood glucose greater than 70 mg/dL. Call Provider if not resolved after 2 treatments Repeat BS in 1 hour, retime for 1 hour after blood sugar greater than 70 mg/dL If less than 41: Repeat Finger stick within 5 minutes with same machine Send serum glucose level: Do not wait on lab to treat diphenhydrAMINE (BENADRYL) injection 25 mg 25 mg Every 6 hours PRN, intravenous, itching, Starting on Mon06/28/24 at 0023 0408 (Given - Provider: Raquel Matson RN)1745 (Given - Provider: Danyelle Torres)2330 (Given - Provider: Marisol Foster RN) 0523 (Given - Provider: Renato Miller RN)1109 (Given - Provider: Danyelle Torres)2038 (Given - Provider: Carri Marino RN) docusate sodium (COLACE) capsule 100 mg 100 mg 2 times daily PRN, oral, constipation, Starting on Bobbi 06/27/24 at 2321, Bowel Regimen - for prevention of constipation. fentaNYL PF (SUBLIMAZE) injection (COMPLETED) IMG once as needed, intravenous, Starting on Mon06/28/24 at 1628, For 1 dose, Intra-op 1628 (Given - Provider: Ronald Brooks RN) glucagon injection 1 mg 1 mg Every 15 min PRN, intraMUSCULAR, low blood glucose (specify value in prn comments), For Patients without IV access and blood glucose 41-69 mg/dL AND unable to take PO OR Less than 41 mg/dL, Starting on 06/29/24 at 2215, Caution: glucagon . Roll patient on their side when administering to prevent aspiration. Call Provider if not resolved after 2 treatments Repeat BS in 1 hour, retime for 1 hour after blood sugar greater than 70 mg/dL glucose chew tab 16 g 16 g Every 15 min PRN, oral, low blood glucose (specify value in prn comments), 41-69 mg/dL, Starting on 06/29/24 at 2215, For Patients who can take oral AND blood glucose 41-69 mg/dL Give 4 Tabs every 15 minutes. Recheck blood glucose every 15 minutes and repeat 15 grams of carbohydrates until blood glucose is above 70 mg/dL. Give Meal or Snack Call Provider if not resolved after 3 treatments Repeat BS in 1 hour, retime for 1 hour after blood sugar greater than 70 mg/dL guaiFENesin (ROBITUSSIN) 100 mg/5 mL syrup 100 mg (CANCELED) 100 mg Every 4 hours PRN, oral, congestion, Starting on Mon06/28/24 at 1524, Look-alike/Sound-alike medication 2356 (Given - Provider: Marisol Foster RN) 0523 (Given - Provider: Renato Miller RN)0745 (Given - Provider: Danyelle Torres) heparin 1,000 Units/mL injection (COMPLETED) IMG once as needed, intravenous, Starting on Mon06/28/24 at 1654, For 1 dose, Intra-op 1654 (Given - Provider: Carlos Eduardo Jimenez MD) heparin 1,000 Units/mL injection (COMPLETED) IMG once as needed, intravenous, Starting on Mon06/28/24 at 1654, For 1 dose, Intra-op 1654 (Given - Provider: Carlos Eduardo Jimenez MD) hydrALAZINE (APRESOLINE) injection 10 mg 10 mg Every 6 hours PRN, intravenous, hypertension (sbp greater than 160), Starting on Bobbi 06/27/24 at 2321, Hold if SBP < 100 mmHg, DBP < 50 mmHg, or patient is on pressor. Look-alike/Sound-alike medication 0053 (Given - Provider: Raquel Matson, JANA)2330 (Given - Provider: Marisol Foster RN) 0702 (Given - Provider: Carri Marino RN) iopamidoL (ISOVUE-300) 300 mg iodine /mL (61 %) injection (COMPLETED) IMG once as needed, Starting on Mon06/28/24 at 1655, For 1 dose, Intra-op 1655 (Given - Provider: Carlos Eduardo Jimenez MD) ipratropium-albuteroL (DUO-NEB) 0.5 mg-3 mg(2.5 mg base)/3 mL nebulizer solution 3 mL 3 mL Every 6 hours PRN, nebulization, wheezing, shortness of breath, Starting on Bobbi 06/27/24 at 2322, RESPIRATORY THERAPY TREATMENT Protect from Light, What is the respiratory therapy Modality? Small volume Nebulization lidocaine (PF) injection 10 mg/mL (1%) (COMPLETED) IMG once as needed, intradermal, Starting on Mon06/28/24 at 1630, For 1 dose, Intra-op 1630 (Given - Provider: Carlos Eduardo Jimenez MD) melatonin tablet 3 mg 3 mg Every Night PRN, oral, insomnia, Starting on Mon06/27/24 at 2321 midazolam (PF) (VERSED) injection (COMPLETED) IMG once as needed, intravenous, Starting on Mon06/28/24 at 1629, For 1 dose, Intra-op 1629 (Given - Provider: Ronald Brooks RN) morphine injection 2 mg 2 mg Every 4 hours PRN, intravenous, moderate pain (4-6), severe pain (7-10), Starting on Bobbi 06/27/24 at 2321, If unable to take PO for same pain scale if ordered If inadequate response (less than 50% reduction in pain score) within 60 minutes, proceed to next-line agent for same PRN reason or contact provider if no further options ordered. 0828 (Given - Provider: Danyelle Torres)1443 (Given - Provider: Danyelle Torres)1744 (Given - Provider: Danyelle Torres)2157 (Given - Provider: Marisol Foster RN) 0300 (Given - Provider: Renato Miller RN)0941 (Given - Provider: Danyelle Torres)2037 (Given - Provider: Carri Marino RN) naloxone (NARCAN) injection 0.2 mg 0.2 mg Every 2 min PRN, intravenous, opioid reversal, respiratory depression, Starting on Bobbi 06/27/24 at 2321, Give for respiratory rate less than 10 breaths/min or if patient is difficult to arouse. Max dose = 10 mg. Call provider. ondansetron (ZOFRAN-ODT) disintegrating tablet 4 mg(Linked Group 3) 4 mg Every 8 hours PRN, oral, nausea, vomiting, Starting on Bobbi 06/27/24 at 2321, 1st line. If inadequate response within 60 minutes, proceed to next-line agent for same PRN reason or contact provider if no further options ordered. 0231 (See Alternativ e - Provider: Carri Marino RN) ondansetron PF (ZOFRAN) injection 4 mg(Linked Group 3) 4 mg Every 8 hours PRN, intravenous, nausea, vomiting, Starting on Bobbi 06/27/24 at 2321, Give IV if patient is unable to take orally. 1st line If inadequate response within 60 minutes, proceed to next-line agent for same PRN reason or contact provider if no further options ordered. For IV push, give over 2 - 5 minutes. 0231 (Given - Provider: Carri Marino RN) oxyCODONE (ROXICODONE) immediate release tablet 5 mg 5 mg Every 4 hours PRN, oral, moderate pain (4-6), Starting on Bobbi 06/27/24 at 2322, Look-alike/Sound-alike medication 0032 (Given - Provider: Raquel Matson RN)1442 (Given - Provider: Danyelle Torres) polyethylene glycol (GLYCOLAX) packet 17 g 17 g Daily as needed, oral, constipation, Starting on Bobbi 06/27/24 at 2321, Bowel Regimen - for prevention of constipation. sodium chloride flush 10 mL(Linked Group 4) 10 mL As needed, intravenous, line care, Starting on Bobbi 06/27/24 at 2321, Every 8 hours and PRN to flush No Frequency Medication Order 06/28/2024 06/29/202406/3006/30/2024 lidocaine (PF) 10 mg/mL (1 %) injection (COMPLETED) Starting on Mon06/28/24 at 0739, For 1 dose, Created by cabinet override 0800 (Given - Provider: Danyelle Torres - Comment: per Dr Pryor for line insertion) Linked Groups Order Group 1: sodium bicarbonate 8.4 % (1 mEq/mL) injection syringe 50 mEq (COMPLETED)Jump to med 50 mEq Once, intravenous, On Mon06/28/24 at 0100, For 1 dose Followed by sodium bicarbonate 8.4 % (1 mEq/mL) injection syringe 50 mEq (COMPLETED)Jump to med 50 mEq Once, intravenous, On Mon06/28/24 at 0100, For 1 dose Followed by sodium bicarbonate 8.4 % (1 mEq/mL) injection syringe 50 mEq (COMPLETED)Jump to med 50 mEq Once, intravenous, On Mon06/28/24 at 0100, For 1 dose Group 2: sodium bicarbonate 8.4 % (1 mEq/mL) injection syringe 50 mEq (COMPLETED)Jump to med 50 mEq Once, intravenous, On Mon06/28/24 at 0530, For 1 dose Followed by sodium bicarbonate 8.4 % (1 mEq/mL) injection syringe 50 mEq (COMPLETED)Jump to med 50 mEq Once, intravenous, On Mon06/28/24 at 0530, For 1 dose Group 3: ondansetron (ZOFRAN-ODT) disintegrating tablet 4 mgJump to med 4 mg Every 8 hours PRN, oral, nausea, vomiting, Starting on Bobbi 06/27/24 at 2321, 1st line. If inadequate response within 60 minutes, proceed to next-line agent for same PRN reason or contact provider if no further options ordered. Or ondansetron PF (ZOFRAN) injection 4 mgJump to med 4 mg Every 8 hours PRN, intravenous, nausea, vomiting, Starting on Bobbi 06/27/24 at 2321, Give IV if patient is unable to take orally. 1st line If inadequate response within 60 minutes, proceed to next-line agent for same PRN reason or contact provider if no further options ordered. For IV push, give over 2 - 5 minutes. Group 4: Insert Peripheral IV (CANCELED) STAT, Once, On Bobbi 06/27/24 at 2322, For 1 occurrence And Saline Lock IV (CANCELED) Routine, Once, On Bobbi 06/27/24 at 2322, For 1 occurrence And sodium chloride flush 10 mLJump to med 10 mL As needed, intravenous, line care, Starting on Bobbi 06/27/24 at 2321, Every 8 hours and PRN to flush documented in this encounter Care Teams Lean Manufacturing Specialist Relationship Specialty Start Date End Date Edgar Fournier MD [address] [place] [address] PCP - General Family Medicine 06/27/24 documented as of this encounter
--- OUTSIDE RECORDS SUMMARY | 2024-07-12 12:21 | XMS_ITS | Encounter Summary ---
Author Organization [facility] In iatives Address [address] [place] [address] Care Team Providers Care Poker Manager Name Role Phone Edgar Fournier MD Primary Care Provider Edgar Fournier MD Primary Care Provider [phone] Reason for Referral * Interventional Radiology (Routine) - Closed Specialty Diagnoses / Procedures Referred By Contac t Referred To Contact Radiology Diagnoses End stage renal disease (HCC) Procedures IR CENTRAL VENOUS Man Sky MD [address] [place] [address] [address] [place] [id number] Phone: tel: fax: Referral ID Status Reason Start Date Expiration Date Visits Re quested Visits Authorized [id number] Closed 01/12/2023 07/11/2023 1 1 Encounter Details Date Type Department Care Team (Late st Contact Info) Description 01/12/2023 Outside Orders [facility] Central Scheduling [address] [place] [address] Man Sky MD [address] [place] [address] [address] [place] [id number] End stage renal disease (HCC) (Primary Dx) Social History Tobacco Use Types Packs/Day Years Used Date Smoking Tobacco: Never Assessed Sex and Gender Information Value Date Recorded Sex Assigned at Male 02/08/2022 8:44 PM CDT Legal Sex Male 8:44 PM CDT Gender Identity Male 02/08/2022 8:44 PM CDT Sexual Orientation Not on file documented as of this encounter Plan of Treatment Not on file documented as of this encounter Results * IR CENTRAL VENOUS (01/17/2023 8:40 AM EDT) Anatomical Region Laterality Modality Interventional R adiology 01/17/2023 10:3 6 AM EDT Impressions 01/17/2023 10:46 AM EDT Status post implanted venous catheter removal, without complication. Images reviewed, interpreted, and dictated by Dr. Rohith Hogue. Transcribed by Maile Connolly PA-C. Narrative 01/17/2023 10:46 AM EDT REMOVAL OF RIGHT IJ TUNNELED DEEP LINE CATHETER HISTORY: End stage renal disease ATTENDING PHYSICIAN: Dr. Hogue PHYSICIAN RECREATION OFFICER: Maile Connolly PA-C PROCEDURE: After informed consent was obtained, the patient was prepped and draped in the usual sterile fashion over the right anterior chest wall. 1% Lidocaine was utilized for local anesthesia. Utilizing sharp and blunt dissection, the cuff of the catheter was dissected and removed. The sutures were removed. The catheter was withdrawn without complication. Hemostasis was obtained with manual compression over the venotomy site and over the chest wall access site. Procedure Note Rohith Hogue MD - 01/17/2023 REMOVAL OF RIGHT IJ TUNNELED DEEP LINE CATHETER HISTORY: End stage renal disease ATTENDING PHYSICIAN: Dr. Hogue PHYSICIAN RECREATION OFFICER: Maile Connolly PA-C PROCEDURE: After informed consent was obtained, the patient was prepped and draped in the usual sterile fashion over the right anterior chest wall. 1% Lidocaine was utilized for local anesthesia. Utilizing sharp and blunt dissection, the cuff of the catheter was dissected and removed. The sutures were removed. The catheter was withdrawn without complication. Hemostasis was obtained with manual compression over the venotomy site and over the chest wall access site. IMPRESSION: Status post implanted venous catheter removal, without complication. Images reviewed, interpreted, and dictated by Dr. Rohith Hogue. Transcribed by Maile Connolly PA-C. Man Sky MD IMG IR ORDERABLES Final Res ult documented in this encounter Visit Diagnoses Diagnosis End stage renal disease (HCC)- Primary End stage renal disease End stage renal disease (HCC) End stage renal disease documented in this encounter Care Teams Poker Manager Relationship Specialty Start Date End Date Edgar Fournier MD [address] [place] [id number] PCP - General Family Medicine 01/17/23 06/26/24 Edgar Fournier MD [address] [place] [address] PCP - General Family Medicine 06/27/24 documented as of this encounter
--- OUTSIDE RECORDS SUMMARY | 2024-07-12 12:21 | XMS_ITS | Encounter Summary ---
Author Organization [facility] In iatives Address [address] [facility] [place] [address] Care Team Providers Care Canvas Cutter Machine Name Role Phone Edgar Fournier MD Primary Care Provider [phone] Encounter Details Date Type Department Care Team (Latest Contact Info) Description 05/01/2024 Travel Social History Tobacco Use Types Packs/Day Years Used Date Smoking Tobacco: Never Smokeless Tobacco: Never Alcohol Use Standard Drinks/Week Comments Not Currently 0 (1 standard drink = 0.6 oz pur e alcohol) Interpersonal Safety Answer Date Record ed Family or friends hurt you Not on file 09/01 Family or friends insult you Not on file Family or friends threaten you Not on file 0 09/01/2023 Family or friends scream or curse at you Not on file 09/01/2023 Housing Stability Answer Date Recorded Living situation today Not on file Living situation problems Not on file 2023 Food Insecurity Answer Date Recorded Food run out past 12 months Not on file 08/14 Food did not last past 12 months Not on file 09/01/2023 Employment Answer Date Recorded Help finding and keeping a job Not on file 0 09/01/2023 Family and Community Support Answer Gilbert e Recorded Help with Day to Day Activities Not on file 09/01/2023 Feeling Lonely or Isolated Not on file 09/01 Educational Attainment Answer Date Jorge rded Speak language other than Turkmen at home Not on file 09/01/2023 Want help with school or training Not on file 09/01/2023 Depression Answer Date Recorded PHQ-2 Risk Not on file 09/01/2023 Disabilities Answer Date Recorded Difficulty concentrating Not on file 024 Difficulty doing errands alone Not on file 0 09/01/2023 Substance Use Answer Date Recorded Used prescription meds for non-medical reasons N ot on file 09/01/2023 Used illegal drugs past 12 months Not on file 09/01/2023 Sex and Gender Information Value Date Recorded Sex Assigned at Male 02/08/2022 8:44 PM CDT Legal Sex Male 8:44 PM CDT Gender Identity Male 02/08/2022 8:44 PM CDT Sexual Orientation Not on file documented as of this encounter Plan of Treatment Not on file documented as of this encounter Visit Diagnoses Not on filedocumented in this encounter Care Teams Canvas Cutter Machine Relationship Specialty Start Date End Date Edgar Fournier MD [address] [place] [address] PCP - General Family Medicine 01/17/23 06/26/24 documented as of this encounter
--- OUTSIDE RECORDS SUMMARY | 2024-07-12 12:21 | XMS_ITS | Encounter Summary ---
Author Organization [facility] In iatives Address [address] [place] [address] Care Team Providers Care Lumber Sticker Name Role Phone Unavailable Primary Care Provider Unavailabl e Encounter Details Date Type Department Care Team (Late st Contact Info) Description 04/13/2020 Historic Encounter [facility] Radiology [address] [place] [address] Dylan Monk MD [address] [place] [address] Social History Tobacco Use Types Packs/Day Years [...] Procedure Name Priority Date/Time Associated Diagnosis Comments LUANNE,REMOVE TUNNELED CVC WO PORT Routine 04/13/2020 1:43 PM EDT documented in this encounter Results * LUANNE,REMOVE TUNNELED CVC WO PORT (04/13/2020 1:43 PM EDT) Anatomical Region Laterality Modality X-Ray 04/13/2020 1:43 PM EDT Narrative 04/13/2020 7:00 PM EDT REMOVAL OF RIGHT TUNNELED DEEP LINE CATHETER HISTORY: End the stage renal disease, catheter no longer needed ATTENDING PHYSICIAN: Dr. Monk PHYSICIAN WOOD CRAFTER: Maile Connolly PA-C PROCEDURE: After informed consent [...] Images reviewed, interpreted, and dictated by Dr. Dylan Monk. Transcribed by Maile Connolly PA-C. I have personally viewed, interpreted and dictated the examination. I have read and agree with the above final transcribed report. Procedure Note Dylan Monk MD - 11/29/2022 REMOVAL OF RIGHT TUNNELED DEEP LINE CATHETER HISTORY: End the stage renal disease, catheter no longer needed ATTENDING PHYSICIAN: Dr. Monk PHYSICIAN WOOD CRAFTER: Maile Connolly PA-C PROCEDURE: After informed consent [...] Images reviewed, interpreted, and dictated by Dr. Dylan Monk. Transcribed by Maile Connolly PA-C. I have personally viewed, interpreted and dictated the examination. I have read and agree with the above final transcribed report. Dylan Monk MD IMG DIAGNOSTIC IMAGING ORDERAB LES Final Result documented in this encounter Visit Diagnoses Not on filedocumented in this encounter
--- OUTSIDE RECORDS SUMMARY | 2024-07-12 12:21 | XMS_ITS | Encounter Summary ---
Author Organization [facility] In [place] Address [address] [place] [address] Care Team Providers Care Blending Tank Tender Helper Name Role Phone Edgar Fournier MD Primary Care Provider [phone] Edgar Fournier MD Primary Care Provider [phone] Encounter Details Date Type Department Care Team (Late st Contact Info) Description 04/13/2020 Transcribed Document [facility] [place] [address] ProviderAmrit MD [address] [place] [id number] Social History Tobacco Use Types Packs/Day Years Used Date Smoking Tobacco: Never Assessed Sex and Gender Information Value Date Recorded Sex Assigned at Male 02/08/2022 8:44 PM CDT Legal Sex Male 8:44 PM CDT Gender Identity Male 02/08/2022 8:44 PM CDT Sexual Orientation Not on file documented as of this encounter Miscellaneous Notes * Cerner Conversion Note - Amrit Chan MD - 04/13/2020 12:56 PM CDT Patient Education Materials Follows: Wound Infection A wound infection happens when germs start to grow in a wound. Germs that cause wound infections are most often bacteria. Other types of infections can occur as well. An infection can cause the wound to break open. Wound infections need treatment. If a wound infection is not treated, problems can happen. What are the causes? Most often caused by germs (bacteria) that grow in a wound. ??? Other germs, such as yeast and funguses, can also cause wound infections. What increases the risk? Having a weak body defense system (immune system). ??? Having diabetes. ??? Taking certain medicines (steroids) for a long time. ??? Smoking. ??? Being an older person. ??? Being overweight. ??? Taking certain medicines for cancer treatment. What are the signs or symptoms? Having more redness, swelling, or pain at the wound site. ??? Having more blood or fluid at the wound site. ??? A bad smell coming from a wound or bandage (dressing). ??? Having a fever. ??? Feeling very tired. ??? Having warmth at or around the wound. ??? Having pus at the wound site. How is this treated? This condition is most often treated with an antibiotic medicine. ? The infection should improve 24?48 hours after you start antibiotics. ? After 24?48 hours, redness around the wound should stop spreading. The wound should also be less painful. Follow these instructions at home: Medicines ??? Take or apply [id number] and prescription medicines only as told by your doctor. ??? If you were prescribed an antibiotic medicine, take or apply it as told by your doctor. Do not stop using the antibiotic even if you start to feel better. Wound care ??? Clean the wound each day, or as told by your doctor. ? Wash the wound with mild soap and water. ? Rinse the wound with water to remove all soap. ? Pat the wound dry with a clean towel. Do not rub it. ??? Follow instructions from your doctor about how to take care of your wound. Make sure you: ? Wash your hands with soap and water before and after you change your bandage. If you cannot use soap and water, use hand airport operations coordinator. ? Change your bandage as told by your doctor. ? Leave stitches (sutures), skin glue, or skin tape (adhesive) strips in place if your wound has been closed. They may need to stay in place for 2 weeks or longer. If tape strips get loose and curl up, you may trim the loose edges. Do not remove tape strips completely unless your doctor says it is okay. Some wounds are left open to heal on their own. ??? Check your wound every day for signs of infection. Watch for: ? More redness, swelling, or pain. ? More fluid or blood. ? Warmth. ? Pus or a bad smell. General instructions ??? Keep the bandage dry until your doctor says it can be removed. ??? Do not take baths, swim, or use a hot tub until your doctor approves. Ask your doctor if you may take showers. You may only be allowed to take sponge baths. ??? Raise (elevate) the injured area above the level of your heart while you are sitting or lying down. ??? Do not scratch or pick at the wound. ??? Keep all follow-up visits as told by your doctor. This is important. Contact a doctor if: ??? Medicine does not help your pain. ??? You have more redness, swelling, or pain around your wound. ??? You have more fluid or blood coming from your wound. ??? Your wound feels warm to the touch. ??? You have pus coming from your wound. ??? You notice a bad smell coming from your wound or your bandage. ??? Your wound that was closed breaks open. Get help right away if: ??? You have a red streak going away from your wound. ??? You have a fever. Summary ??? A wound infection happens when germs start to grow in a wound. ??? This condition is usually treated with an antibiotic medicine. ??? Follow instructions from your doctor about how to take care of your wound. ??? Contact a doctor if your wound infection does not start to get better in 24?48 hours, or your symptoms get worse. ??? Keep all follow-up visits as told by your doctor. This is important. This information is not intended to replace advice given to you by your health care provider. Make sure you discuss any questions you have with your health care provider. Document Released: 05/09/2009 Document Revised: 03/12/2019 Document Reviewed: 03/12/2019 [employer] Patient Education ? 2020 [employer] documented in this encounter Plan of Treatment Not on file documented as of this encounter Visit Diagnoses Not on filedocumented in this encounter Care Teams Blending Tank Tender Helper Relationship Specialty Start Date End Date Edgar Fournier MD [address] [place] [id number] PCP - General Family Medicine 01/17/23 06/26/24 Edgar Fournier MD [address] [place] [id number] PCP - General Family Medicine 06/27/24 documented as of this encounter
--- OUTSIDE RECORDS SUMMARY | 2024-07-12 12:21 | XMS_ITS | Encounter Summary ---
Author Organization [facility] Address [address] [place] [address] Care Team Providers Care Lawn Care Worker Name Role Phone Edgar Fournier MD Primary Care Provider [phone] Reason for Referral * Interventional Radiology (Routine) - Closed Specialty Diagnoses / Procedures Referred By Declan hines Referred To Contact Radiology Diagnoses End stage renal disease (HCC) Hemodialysis catheter dysfunction (HCC) Failure of hemodialysis access (HCC) Dependence on hemodialysis (HCC) Procedures IR CENTRAL VENOUS Man Sky MD [address] [place] [address] Phone: tel: fax: Referral ID Status Reason Start Date Expiration Date Visits Re quested Visits Authorized [id number] Closed 04/30/2024 04/30/2025 1 1 Reason for Visit * Interventional Radiology (Routine) - Closed Specialty Diagnoses / Procedures Referred By Declan hines Referred To Contact Radiology Diagnoses End stage renal disease (HCC) Hemodialysis catheter dysfunction (HCC) Failure of hemodialysis access (HCC) Dependence on hemodialysis (HCC) Procedures IR CENTRAL VENOUS Man Sky MD [address] [place] [address] [place] [address] Phone: tel: fax: Referral ID Status Reason Start Date Expiration Date Visits Re quested Visits Authorized [id number] Closed 04/30/2024 04/30/2025 1 1 Encounter Details Date Type Department Care Team (Late st Contact Info) Description 05/01/2024 9:06 AM EDT - 05/01/2024 11:59 PM EDT Hospital Encounter [facility] Interventional Radiology Lab [address] [place] [address] Man Sky MD [address] [facility] [address] [place] [id number] Conner Ruvalcaba MD [address] [facility] [address] [place] [id number] End stage renal disease (HCC); Hemodialysis catheter dysfunction (HCC); Failure of hemodialysis access (HCC); Dependence on hemodialysis (HCC) Discharge Disposition: Home or Self Care Social [...] Date Jorge rded Speak language other than [place] at home Not on file 09/01/2023 Want [...] Sign Reading Time Taken Comments Blood Pressure 138/63 05/01/2024 11:55 AM EDT Pulse 80 05/01/2024 11:55 AM EDT Temperature 36.3 ??C (97.4 ??F) 05/01/2024 10:03 AM E DT Respiratory Rate 24 05/01/2024 11:55 AM EDT Oxygen Saturation 96% 05/01/2024 11:13 AM EDT Inhaled Oxygen Concentration - - Weight 136.5 kg (301 lb) 05/01/2024 10:03 AM EDT Height 175.3 cm (5' 9 ) 05/01/2024 10:03 AM EDT Body Mass Index 44.45 05/01/2024 10:03 AM EDT documented in this encounter Discharge Instructions * Attachments The following attachments cannot be sent through Care Everywhere. * Moderate Conscious Sedation Adult Care After ([place]) * Tunneled Catheter Insertion Care After ([place]) documented in this encounter Medications at Time of Discharge ALPRAZolam (XANAX) 0.5 MG tablet Take 1 tablet (0.5 mg total) by mouth daily as needed for anxiety. 3 aspirin 81 MG chewable tablet Take 1 tablet (81 mg total) by mouth daily. calcium carbonate (Tums) 500 mg chewable tablet Take 2 tablets (1,000 mg total) by mouth 3 (three) times daily with meals. 4 carvediloL (COREG) 25 MG tablet Take 1 tablet (25 mg total) by mouth 2 (two) times daily. entecavir (BARACLUDE) 0.5 MG tablet Take 1 tablet (0.5 mg total) by mouth once a week. ergocalciferol (ERGOCALCIFEROL) 1,250 mcg (50,000 unit) capsule Take 1 capsule (50,000 Units total) by mouth 3 (three) times a week MON/WED/FRI. 4 folic acid (FOLVITE) 1 MG tablet Take 1 tablet (1 mg total) by mouth daily. insulin aspart U-100 (NovoLOG Flexpen U-100 Insulin) 100 unit/mL (3 mL) inpn Inject 5 Units subcutaneously 3 (three) times daily before meals. 4 montelukast (SINGULAIR) 10 mg tablet Take 1 tablet (10 mg total) by mouth nightly. mycophenolate (CELLCEPT) 250 mg capsule Take 1 capsule (250 mg total) by mouth 2 (two) times daily. 4 NIFEdipine (ADALAT CC) 90 MG 24 hr tablet Take 1 tablet (90 mg total) by mouth 2 (two) times daily. pantoprazole (PROTONIX) 40 MG tablet Take 1 tablet (40 mg total) by mouth 2 (two) times daily before meals Can take up to 3 tablets/day as directed. testosterone cypionate (DEPOTESTOTERONE CYPIONATE) 200 mg/mL injection Inject 1 mL (200 mg total) intramuscularly every 28 days. 4 cycloSPORINE (SandIMMUNE) 25 MG capsule Take by mouth. 4 06/28/20 24 doxazosin (CARDURA XL) 8 MG 24 hr tablet 06/28/20 24 FE-C8-E1-B3-B6-B12- C-Zn 1 mg-1.5 mg- 1.7 mg-50 mg tab 06/28/20 24 fenofibrate (LIPOFEN) 50 mg capsule Take 50 mg by mouth. 06/28/20 24 gabapentin (NEURONTIN) 300 MG capsule Take by mouth. 4 06/28/20 24 HumuLIN N NPH Insulin KwikPen 100 unit/mL (3 mL) inpn Inject subcutaneously. 06/28/20 24 hydrALAZINE (APRESOLINE) 100 MG tablet Take 1 tablet (100 mg total) by mouth 3 (three) times daily. 05/07/20 24 Lokelma 10 gram pwpk Take 1 packet (10 g total) by mouth. 3 06/28/20 methocarbamoL (ROBAXIN) 500 MG tablet Take 1 tablet (500 mg total) by mouth. 3 06/28/20 naloxone (NARCAN) 4 mg/actuation spry 1 spray by intraNASAL route. 4 06/28/20 ofloxacin (FLOXIN) 0.3 % otic solution SMARTSIG:In Ear(s) 4 06/28/20 ondansetron (ZOFRAN-ODT) 8 MG disintegrating tablet Take 1 tablet (8 mg total) by mouth 3 (three) times daily. 06/28/20 promethazine (PHENERGAN) 25 MG tablet Take 1 tablet (25 mg total) by mouth. 3 06/28/20 temazepam (RestoriL) 15 mg capsule Take by mouth. 3 05/07/20 tenapanor (Xphozah) 20 mg tab Take 30 mg by mouth. 3 06/28/20 Vascepa 1 gram capsule Take 2 capsules (2 g total) by mouth 2 (two) times daily. 4 06/28/20 documented as of this encounter H&P Notes * Brenna Dangelo PA-C - 05/01/2024 10:00 AM EDT Consults History of Present Illness: Aiden Stauffer Jr. is a 49 y.o. male presenting with end stage renal disease for a left chest dialysis catheter exchange. Past Medical History Past Medical History: Diagnosis Date Chronic kidney disease Diabetes mellitus (HCC) Hepatitis Hypertension SAL (nonalcoholic steatohepatitis) Past Surgical History Past Surgical History: Procedure Laterality Date AV FISTULA PLACEMENT TRANSPLANT,LIVER Family History: No family history on file. Allergies: Patient has no known allergies. Medications: (Not in a hospital admission) No current outpatient medications on file. Current Facility-Administered Medications Medication Dose Route Frequency Provider Last Rate Last Admin ondansetron PF (ZOFRAN) injection 4 mg 4 mg intravenous PRN Edgar Mrecado PA-C sodium chloride 0.9 % infusion 1,000 mL intravenous Continuous Edgar Mercado PA-C sodium chloride flush 10 mL 10 mL intravenous PRN Edgar Mercado PA-C Review of Systems Respiratory: Positive for shortness of breath. All other systems reviewed and are negative. Vitals There were no vitals filed for this visit. Physical Exam HENT: Head: Normocephalic and atraumatic. Cardiovascular: Rate and Rhythm: Normal rate. Pulmonary: Effort: Pulmonary effort is normal. Skin: General: Skin is warm and dry. Findings: Bruising present. Comments: Temporary dialysis catheter left chest Neurological: Mental Status: He is alert. Psychiatric: Mood and Affect: Mood normal. Relevant Results: Radiology Results (last 7 days) Procedure Component Value Units Date/Time IR CENTRAL VENOUS [[id number]] Order Status: Sent X-ray Portable Chest [[id number]] Collected: 04/27/242205 Order Status: Completed Updated: 05/01/24909 Narrative: EXAM: XR PORTABLE CHEST INDICATION: Shortness of breath TECHNIQUE: 1 view of the chest. COMPARISON: 11/04/2023. FINDINGS: Medical Devices: Left-sided central venous catheter tip overlies the lower SVC.. Heart and Mediastinum: Unchanged. Lungs and Pleura: Low lung volumes. Indistinct pulmonary vasculature. Perihilar and bibasilar parenchymal opacities. Left basilar parenchyma opacities. Meniscus in the left lateral lower lung zone, may related to pleural effusion or pericardial fat pad. No pneumothorax Bones and soft tissues: No acute abnormalities. Impression: IMPRESSION: Findings of mild pulmonary edema. Report Verified by: Earnest Gonzalez DO at 04/27/2024 11:05 PM EDT No visits with results within 3 Day(s) from this visit. Latest known visit with results is: No results found for any previous visit. No results found for: CREAT , BUN , CBC , CHEM6 Assessment & Plan Active Problems: There are no active Hospital Problems. Plan: Proceed with dialysis catheter exchange. Signed: Electronically signed by Brenna Dangelo PA-C 05/01/24 9:49 AM EDT documented in this encounter Procedure Notes * Conner Ruvalcaba MD - 05/01/2024 10:00 AM EDT Pre-Op/Procedure Diagnosis: Renal failure, need for hemodialysis access Post-OP Diagnosis: Same Procedure Performed: Tunneled dialysis cath exchange, central/catheter venogram, Disruption of fibrin sheath. Procedural Radiologist: Conner Ruvalcaba MD Visual Effects Editor: None Sedation: 2 mg iv Versed and 100 micrograms iv Fentanyl, Hydralazine 20 mg IV Findings: Central/catheter venogram showed fibrin sheath. Successful disruption of fibrin sheath. Successful left IJ tunneled dialysis catheter exchange with fluoroscopy guidance. Complications: No immediate complications EBL: Trace/ not significant (<2 mL). Specimen(s) Removed: None Full report to follow. documented in this encounter Miscellaneous Notes * Nursing Progress Notes - Eneida Melchor RN - 05/01/2024 10:00 AM EDT Pt returned s/p tunneled cath exchange to left upper chest; pt is alert and oriented x 4, resting comfortably Dressing and site left upper chest, C/D/I RN instructed on post procedure protocol and bedrest as well as discharge plan. Pt verbalized understanding * Nursing Progress Notes - Eneida Melchor RN - 05/01/2024 10:00 AM EDT Bedrest is complete, pt was able top ambulate to restroom and back without complications. Dressing to left upper chest is C/D/I Rn reviewed discharge instructions and follow up care with pt/family. Pt/family verbalized understanding Rn removed IV and transported pt out via wheelchair to daughter who is driving him home * Sedation Pre Note - Conner Ruvalcaba MD - 05/01/2024 10:00 AM EDT ASA Mallampati score: Immediately prior to the procedure, I performed an ASA and or Mallampati assessment. ASA 3 - Patient with moderate systemic disease with functional limitations Mallampati score: III (soft and hard palate and base of uvula visible) Conner Ruvalcaba MD 10:34 AM documented in this encounter Plan of Treatment Not on file documented as of this encounter Procedures Procedure Name Priority Date/Time Associated Diagnosis Comments IR CENTRAL VENOUS Routine 05/01/2024 10: 59 AM EDT End stage renal disease (HCC) Hemodialysis catheter dysfunction (HCC) Failure of hemodialysis access (HCC) Dependence on hemodialysis (HCC) ISTAT GLUCOSE POC Routine 05/01/2024 9:3 4 AM EDT POCT-POTASSIUM Routine 05/01/2024 9:34 AM EDT documented in this encounter Results * IR CENTRAL VENOUS (05/01/2024 10:59 AM EDT) Anatomical Region Laterality Modality Interventional R adiology 05/01/2024 3:50 PM EDT Impressions 05/01/2024 4:04 PM EDT Successful disruption of the fibrin sheath near the tunnel dialysis catheter tip. Successful exchange of left chest wall internal jugular approach tunneled hemodialysis catheter. Line ready to use. Critical results: No COMMUNICATION: Per this written report. Images personally reviewed, interpreted and dictated by CLARK rBown. Narrative 05/01/2024 4:04 PM EDT PROCEDURE: TUNNELED CATHETER EXCHANGE 1. Fluoroscopic guided exchange of tunneled central venous catheter for hemodialysis. 2. Moderate conscious sedation. 3. Pre and post central venogram through the existing catheter with disruption of fibrin sheath through balloon angioplasty. CLINICAL INDICATION: 49-year-old male with non functioning tunneled hemodialysis catheter, presented for exchange of hemodialysis catheter. electric dolly operator: CLARK Brown Medications: IV Conscious sedation was utilized for this procedure using 2 mg of Versed, and 100 mcg of Fentanyl. ??Additionally, 1% Lidocaine was used for skin and deep subcutaneous local anesthetic. Continuous cardiopulmonary/physiologic activity was monitored by highly qualified health medicare biller/nurse during the the entire procedure. IV hydralazine 20 mg. Fluoroscopy Time: ??2.9 minutes. Radiation exposure in reference to Air-Kerma: 589 mGy. Dose Area Product (DAP): 10,720 micoGray/m2. Number of Images: 9 images. Antibiotic: Ancef 2 g IV once. Duration of conscious sedation: [...] pressure near the neck. ??Over the wire 6 [place] sheath was placed into the left brachiocephalic vein. Balloon angioplasty was performed for disruption of the fibular sheath utilizing 10 mm x 40 mm Bernard balloon at multiple stations. The balloon was removed. The sheath was [...] to aspirate and flush. Central venogram showed a fibrin sheath. Successful disruption of the fibrin sheath utilizing 10 mm balloon. Device: 15.5 Fr x 32 cm Duraflow catheter. CardioMEMS device noted. Procedure Note Conner Ruvalcaba MD - 05/01/2024 PROCEDURE: TUNNELED CATHETER EXCHANGE 1. Fluoroscopic guided exchange of tunneled central venous catheter for hemodialysis. 2. Moderate conscious sedation. 3. Pre and post central venogram through the existing catheter with disruption of fibrin sheath through balloon angioplasty. CLINICAL INDICATION: 49-year-old male with non functioning tunneled hemodialysis catheter, presented for exchange of hemodialysis catheter. electric dolly operator: CLARK Brown Medications: IV Conscious sedation was utilized for this procedure using 2 mg of Versed, and 100 mcg of Fentanyl. Additionally, 1% Lidocaine was used for skin and deep subcutaneous local anesthetic. Continuous cardiopulmonary/physiologic activity was monitored by highly qualified health medicare biller/nurse during the the entire procedure. IV hydralazine 20 mg. Fluoroscopy Time: 2.9 minutes. Radiation exposure in reference to Air-Kerma: 589 mGy. Dose Area Product (DAP): 10,720 micoGray/m2. Number of Images: 9 images. Antibiotic: Ancef 2 g IV once. Duration of conscious sedation: [...] pressure near the neck. Over the wire 6 [place]ican sheath was placed into the left brachiocephalic vein. Balloon angioplasty was performed for disruption of the fibular sheath utilizing 10 mm x 40 mm Bernard balloon at multiple stations. The balloon was removed. The sheath was [...] to aspirate and flush. Central venogram showed a fibrin sheath. Successful disruption of the fibrin sheath utilizing 10 mm balloon. Device: 15.5 Fr x 32 cm Duraflow catheter. CardioMEMS device noted. IMPRESSION: Successful disruption of the fibrin sheath near the tunnel dialysis catheter tip. Successful exchange of left chest wall internal jugular approach tunneled hemodialysis catheter. Line ready to use. Critical results: No COMMUNICATION: Per this written report. Images personally reviewed, interpreted and dictated by CLARK Brown. us Man Sky MD IMG IR ORDERABLES Final Res ult * (ABNORMAL) Glucose, iSTAT Meter (05/01/2024 9:34 AM EDT) POC-GLUCOSE 114(H) 70 - 105 mg/dL 05/01/2024 6:22 PM EDT [facility] Blood 05/01/2024 9:34 AM EDT 05/01/2024 6:22 PM EDT Narrative [facility] - 05/01/2024 6:22 PM EDT Trades Helper ID is - [id number] us Man Sky MD POINT OF CARE TEST ORDERABL ES Final Result Performing Organization Address [facility] Co de Phone Number [facility] [address] [phone] * (ABNORMAL) POC-Potassium (05/01/2024 9:34 AM EDT) POC Potassium 5.5(H) 3.5 - 4.9 mmol/L 05/01/2024 6:22 PM EDT [facility] Blood 05/01/2024 9:34 AM EDT 05/01/2024 6:22 PM EDT Narrative [facility] - 05/01/2024 6:22 PM EDT Trades Helper ID is - [id number] us Edgar Mercado PA-C POINT OF CARE TEST ORDERABLE S Final Result Performing Organization Address [facility] Co de Phone Number [facility] [address] [phone] documented in this encounter Visit Diagnoses Diagnosis End stage renal disease (HCC) End stage renal disease Hemodialysis catheter dysfunction (HCC) Failure of hemodialysis access (HCC) Dependence on hemodialysis (HCC) Renal dialysis status documented in this encounter Administered Medications Inactive Administered Medications - up to 3 most recent administrations Medication Order MAR Action Action Date Dose Rate Site ceFAZolin (ANCEF) 3 g in sodium chloride 0.9% (NS) IVPB CMPD (PMX) 3 g Once, intravenous, Administer over 60 Minutes, On Mon05/01/24 at 1030, For 1 dose, Give within 1 hour of procedure., Please choose an indication: Surgical Prophylaxis IVPB Started 05/01/2024 10:36 AM EDT 3 g 100 mL/hr fentaNYL PF (SUBLIMAZE) injection IMG once as needed, intravenous, Starting on Mon05/01/24 at 1042, For 1 dose, Intra-op Given 05/01/2024 10:42 AM EDT 50 mcg fentaNYL PF (SUBLIMAZE) injection IMG once as needed, intravenous, Starting on Mon05/01/24 at 1047, For 1 dose, Intra-op Given 05/01/2024 10:47 AM EDT 50 mcg heparin 1,000 Units/mL injection IMG once as needed, intravenous, Starting on Mon05/01/24 at 1055, For 1 dose, Intra-op Given 05/01/2024 10:55 AM EDT 1,000 Units heparin 1,000 Units/mL injection IMG once as needed, intravenous, Starting on Mon05/01/24 at 1055, For 1 dose, Intra-op Given 05/01/2024 10:55 AM EDT 1,000 Units hydrALAZINE (APRESOLINE) injection IMG once as needed, intravenous, Starting on Mon05/01/24 at 1045, For 1 dose, Intra-op Given 05/01/2024 10:45 AM EDT 10 mg hydrALAZINE (APRESOLINE) injection IMG once as needed, intravenous, Starting on Mon05/01/24 at 1056, For 1 dose, Intra-op Given 05/01/2024 10:56 AM EDT 10 mg iopamidoL (ISOVUE-300) injection IMG once as needed, Starting on Mon05/01/24 at 1055, For 1 dose, Intra-op Given 05/01/2024 10:55 AM EDT 10 mLs lidocaine (PF) injection 10 mg/mL (1%) IMG once as needed, intradermal, Starting on Mon05/01/24 at 1045, For 1 dose, Intra-op Given 05/01/2024 10:45 AM EDT 15 mLs Left Upper Chest midazolam (PF) (VERSED) injection IMG once as needed, intravenous, Starting on Mon05/01/24 at 1042, For 1 dose, Intra-op Given 05/01/2024 10:42 AM EDT 1 mg midazolam (PF) (VERSED) injection IMG once as needed, intravenous, Starting on Mon05/01/24 at 1047, For 1 dose, Intra-op Given 05/01/2024 10:47 AM EDT 1 mg sodium chloride 0.9 % infusion 1,000 mL Continuous, intravenous, at 75 mL/hr, Starting on Mon05/01/24 at 1000, Do not administer if history of CHF or renal failure. Call department for further instructions., Pre-op New Bag 05/01/2024 10:36 AM EDT 1,000 mLs 75 mL/hr documented in this encounter Care Teams Lawn Care Worker Relationship Specialty Start Date End Date Edgar Fournier MD [address] [place], [place] [phone] PCP - General Family Medicine 01/17/23 06/26/24 documented as of this encounter
--- OUTSIDE RECORDS SUMMARY | 2024-07-12 12:21 | XMS_ITS | Encounter Summary ---
Author Organization [facility] In [employer]atives Address [address] [place] [address] Care Team Providers Care Farm Manager Name Role Phone Onesimo Garcia MD Primary Care Provider [phone] Onesimo Garcia MD Primary Care Provider [phone] Encounter Details Date Type Department Care Team (Late st Contact Info) Description 04/13/2020 Transcribed Document [facility] [place] Family Medicine [facility] [place] [address] ProviderAmrit MD [address] [place] [id number] Social History Tobacco Use Types Packs/Day [...] Note - Amrit Chan MD - 04/13/2020 1:53 PM CDT [facility] [place] [address] AIDEN ROLLINS JR :1975 Visit Time:04/13/2020 Your Visit Summary Your Care Team Admitting Physician - DAPHNEY STREET MD-CHANA Attending Physician - DAPHNEY STREET MD-CHANA Primary Care Physician - ONESIMO GARCIA MD-FAM Referring Physician - DAPHNEY STREET MD-NEP Your Diagnosis End stage renal disease, End stage renal disease Discharge Vitals Temperature 36.9 ??C Heart Rate (Monitored) 73 Blood Pressure 158/80 What to do next Instructions From Your Care Team Diet after Discharge: Resume usual diet as tolerated Activity after Discharge: Rest and relax today, No strenuous activity, _, __ Showering/Bathing: _, _Keep dry for 48 hours. Medications: No changes to your current home medications., _, _ Dressing Instructions: You can remove the dressing in 48 hours., _, _ Follow-Up Appointments Follow Up with DAPHNEY STREET MD-NEP When Comments Follow-up as instructed Where: Medications What How Much When Instructions Next Dose aspirin (aspirin 81 mg oral tablet) 1 Tablet(s) Oral Every Day carBAMazepine (Epitol 200 mg oral tablet) Oral At Bedtime cycloSERINE (cycloSERINE 250 mg oral capsule) 1 Capsule(s) Oral Two Times A Day doxazosin (Cardura 8 mg oral tablet) Oral Every Day ergocalciferol (Vitamin D2) 100,000 Unit(s) Oral Monday, , Monday hydrALAZINE (hydrALAZINE 100 mg oral tablet) 1 Tablet(s) Oral Three Times A Day insulin isophane (NPH) (HumuLIN N) See instructions SubCutaneous BIDAC metoprolol (Metoprolol Tartrate 100 mg oral tablet) Oral Two Times A Day mycophenolate mofetil (CellCept 250 mg oral capsule) 4 Capsule(s) Oral Two Times A Day 1 hour before or 2 hours after meals NIFEdipine (NIFEdipine 90 mg oral tablet, extended release) Oral Every Day Take your medications faithfully. Do NOT skip medication. Do NOT stop taking medications without the direction of a physician. Carry a list of your medications with you at all times, and take this medication list with you to your first follow up visit. Report any side effects. Avoid herbal remedies unless discussed with your physician. As part of your treatment plan, your physician may have prescribed a limited course of a controlled substance. This medication may be given to help people with moderate or severe pain or for other medical conditions, but there are risks involved with treatment. Common side effects may include nausea, constipation, drowsiness, sweating, itching, dry mouth, and rash. More serious side effects may include cognitive and motor impairment, like problems with thinking, concentrating, alertness, and movement (e.g. slowed reflexes), and driving and operating heavy machinery can be dangerous. It is important for you to talk to your physician if you have these side effects or questions. These controlled substances can produce physical dependence and be habit-forming if taken for an extended period of time, which means that the body has gotten used to them and may experience withdrawal symptoms if they are abruptly stopped. Withdrawal symptoms can include runny nose, sweating, goose bumps, diarrhea, abdominal cramping, rapid heartbeat, difficulty sleeping, and nervousness. Please dispose of unused and medications per your retail pharmacy guidance. Allergies No Known Allergies Immunizations This Visit No Immunizations Found Education Materials Wound Infection A wound infection happens when [...] antibiotic medicine. ? The infection should improve 24???48 hours after you start antibiotics. ? After 24???48 hours, redness around the wound should stop spreading. The wound should also be less painful. Follow these instructions at home: Medicines ??? Take or apply [id number] and prescription medicines only as told by [...] cannot use soap and water, use hand learning strategist. ? Change your bandage as told by [...] does not start to get better in 24???48 hours, or your symptoms get worse. ??? Keep all follow-up visits as told by your doctor. This is important. This information is not intended to replace advice given to you by your health care provider. Make sure you discuss any questions you have with your health care provider. Document Released: 05/09/2009 Document Revised: 03/12/2019 Document Reviewed: 03/12/2019 [employer] Patient Education ?? 2020 Hang w/. Emergency Awareness and Preventative Care STROKE is an EMERGENCY Every Minute Counts Act FAST and Check for these signs: FACE Does the face look uneven? ARM Does one arm drift down? SPEECH Does their speech sound strange? TIME Call at any sign of stroke Stroke Risk Factors Atrial Fibrillation (irregular heartbeat) Diabetes Family history of stroke Heart Disease Heavy alcohol use High Blood Pressure High Cholesterol Physical inactivity and obesity Smoking Cigarette Smoking The facts are clear, cigarette smoking will shorten your life. Smoking can cause many illnesses along the way. As a healthcare provider, we recommend that you stop smoking. Assistance with quitting is available by contacting 1-329-DGQG-NOW. This is a free resource providing counseling, support, and referral. Or you may contact your personal physician. National Suicide Prevention Lifeline: The National Suicide Prevention Lifeline is a national network of local crisis centers that provides free and confidential emotional support to people in suicidal crisis or emotional distress 24 hours a day, 7 days a week. Don't Wait! Stop a Heart Attack Before it Starts What is a heart attack? A heart attack is damage or to a part of the heart from severely decreased or lack of blood flow to the heart. Over time, arteries can become narrow from the buildup of fat and cholesterol, which is called plaque. The plaque can rupture causing a blood clot to form. When the blood clot forms, the artery can become severely narrowed or completely blocked, causing a heart attack. Heart attack is the leading cause of in the [place]. 85% of muscle damage occurs within the first 2 hours. Delay in the recognition of heart attack symptoms increases the chances of . Know the early symptoms of a heart attack: Nausea Feeling of fullness in chest Jaw Pain Pain that travels down one or both arms Fatigue/being tired Anxiety Back Pain Chest pressure, squeezing, or discomfort Shortness of breath Sweating, or a cold sweat Feeling of impending doom There are unusual signs of a heart attack, too! Women, the elderly, and diabetics may present with atypical symptoms: Fainting/dizziness Weakness Confusion Risk Factors for a Heart Attack Some heart disease risk factors, such as age and family history, cannot be changed. Others, like smoking and lack of exercise, can be changed. Smoking High Cholesterol High Blood Pressure Family History Obesity Age Gender (Males are at higher risk) Lack of Exercise Diabetes Diet Stress Excessive Alcohol Intake If you or someone you know is experiencing the signs and symptoms of a heart attack, DON???T DELAY. Call immediately and seek help. If someone collapses, perform CPR! Do not attempt to drive if you are having symptoms of heart attack. Hands-Only CPR Why Hands-Only CPR? Hands-Only CPR has been shown to be as effective as conventional CPR for cardiac arrests that occur outside of a hospital. Survival depends on immediately receiving CPR from someone nearby. How do you perform Hands-Only CPR? There are two easy steps: Call if you see a teen or adult collapse Push hard and fast in the center of the chest at a beat of 100 beats per minute. Save a life! 4 WAYS TO GET AHEAD OF SEPSIS SEPSIS is a MEDICAL EMERGENCY. Time matters! Infections put you and your family at risk for a life-threatening condition called sepsis. Sepsis is the body's extreme response to an infection. It is life-threatening, and without timely treatment, sepsis can rapidly lead to tissue damage, organ failure, and . Sepsis happens when an infection you already have-in your skin, lungs, urinary tract or somewhere else-triggers a chain reaction throughout your body. 1 PREVENT INFECTIONS Take good care of chronic conditions. Talk to your doctor about getting the recommended vaccines. 2 PRACTICE GOOD HYGIENE Wash your hands frequently. Keep cuts or open sores clean and covered until they are healed. 3 KNOW THE SYMPTOMS Confusion or disorientation Shortness of breath High heart rate Fever, shivering, or feeling very cold Extreme pain or discomfort Clammy or sweaty skin 4 ACT FAST Get medical care IMMEDIATELY if you suspect sepsis or if you have an infection that is not getting better or is getting worse. To learn more about sepsis and how to prevent infections, visit www.cdc.gov/sepsis. Test Results Laboratory or Other Results This Visit (last charted value for your 04/13/2020 visit) No Laboratory or Other Results This Visit Patient Name:AIDEN ROLLINS JR I have received and understand this information and was given the opportunity to ask questions. Patient/Food And Nutrition Professor Name: Patient/Food And Nutrition Professor Signature: Relationship to Patient: Clinician/Hospital Food And Nutrition Professor Signature: Date: documented in this encounter Plan of Treatment Not on file documented as of this encounter Visit Diagnoses Not on filedocumented in this encounter Care Teams Farm Manager Relationship Specialty Start Date End Date Onesimo Garcia MD [address] [place] [address] PCP - General Family Medicine 01/17/23 06/26/24 Onesimo Garcia MD [address] [place] [id number] PCP - General Family Medicine 06/27/24 documented as of this encounter
--- OUTSIDE RECORDS SUMMARY | 2024-07-12 12:21 | XMS_ITS | Encounter Summary ---
Author Organization [facility] In iatives Address [address] [place] [address] Care Team Providers Care Nanny Caregiver Name Role Phone Edgar Fournier MD Primary Care Provider [phone] Reason for Referral * Interventional Radiology (Routine) - Closed Specialty Diagnoses / Procedures Referred By Declan hines Referred To Contact Radiology Diagnoses End stage renal disease (HCC) Procedures IR CENTRAL VENOUS Man Sky MD [address] [facility] [address] [place] [address] Phone: tel: fax: Referral ID Status Reason Start Date Expiration Date Visits Re quested Visits Authorized [id number] Closed 05/06/2024 05/06/2025 1 1 Reason for Visit * Auth/Cert (Routine) Specialty Diagnoses / Procedures Referred By Declan hines Referred To Contact Diagnoses End stage renal disease (HCC) Hyperkalemia Procedures IR CENTRAL VENOUS [facility] Short Stay Unit [address] [place] [id number] Phone: tel: fax: [facility] Short Stay [address] [place] [address] Phone: tel: fax: Referral ID Status Reason Start Date Expiration Date Visits Re quested Visits Authorized [id number] 1 1 Encounter Details Date Type Department Care Team (Late st Contact Info) Description 05/07/2024 10:55 AM EDT - 05/07/2024 5:50 PM EDT Hospital Encounter [facility] Short Stay [address] [place] [address] Man Sky MD [address] [facility] [address] [place], [place] [id number] Massimo Barnes MD [address] [facility] [address] [place], [place] [id number] Rohith Hogue MD [address] [facility] [address] [place], [place] [id number] End stage renal disease (HCC) Discharge Disposition: [...] Date Jorge rded Speak language other than [place] at home Not on file 09/01/2023 Want [...] Sign Reading Time Taken Comments Blood Pressure 148/88 05/07/2024 5:20 PM EDT Pulse 94 05/07/2024 5:20 PM EDT Temperature 36.7 ??C (98 ??F) 05/07/2024 4:45 PM EDT Respiratory Rate 16 05/07/2024 5:20 PM EDT Oxygen Saturation 95% 05/07/2024 5:20 PM EDT room air Inhaled Oxygen Concentration - - Weight 136.5 kg (301 lb) 05/07/2024 9:52 AM EDT Height - - Body Mass Index 44.45 05/01/2024 10:03 AM EDT documented in this encounter Discharge Instructions * Discharge Instr - Activity* Lencho Haile RN - 05/07/2024 5:21 PM EDT No driving 24 hours. Rest/relax today. Keep dressing clean/dry and intact. * Attachments The following attachments cannot be sent through Care Everywhere. * Tunneled Catheter Insertion Care After ([place]) * Moderate Conscious Sedation Adult Care After ([place]) documented in this encounter Medications at Time of Discharge ALPRAZolam (XANAX) 0.5 MG tablet Take 1 tablet (0.5 mg total) by mouth daily as needed for anxiety. aspirin 81 MG chewable tablet Take 1 [...] 8 MG 24 hr tablet 06/28/20 24 [id number]-B12- C-Zn 1 mg-1.5 mg- 1.7 mg-50 mg tab 06/28/20 24 fenofibrate (LIPOFEN) 50 mg capsule Take 50 mg by mouth. 06/28/20 24 gabapentin (NEURONTIN) 300 MG capsule Take by mouth. 4 06/28/20 24 HumuLIN N NPH Insulin KwikPen 100 unit/mL (3 mL) inpn Inject subcutaneously. 06/28/20 Lokelma 10 gram pwpk Take 1 packet [...] 1 tablet (25 mg total) by mouth. 06/28/20 tenapanor (Xphozah) 20 mg tab Take 30 mg by mouth. 3 06/28/20 Vascepa 1 gram capsule Take 2 capsules (2 g total) by mouth 2 (two) times daily. 4 06/28/20 documented as of this encounter Progress Notes * Lencho Haile RN - 05/07/2024 5:50 PM EDT 1705-Back from dialysis to await bed placement. States I feel fine and I want to go home . Color pale, (states is always pale ), skin warm and dry. Was adamant about leaving. Told me to plz call admitting physician or would sign himself out. Spoke with Dr. Barnes-stated can be discharged if feeling well. 1750-Son here for transportation home. Stable. * Rose Villa RN - 05/07/2024 10:00 AM EDT Pt's bedside K POC, 6.4, send down K POC 6.2, Dr. Hogue notified, states will continue with CVC cath exchange, Dr. Mccormick notified, stated that pt needs to be admitted for dialysis, spoke with pt and his spouse , pt is agreeable to be admitted for dialysis, Dr. Gamez notified. Awaiting orders,Dr. Barnes orders noted, spoke with Korin in dialysis, pt will go from IR to dialysis once cath is exchanged. Pt and family updated documented in this encounter H&P Notes * Massimo Barnes MD - 05/07/2024 1:57 PM EDT HOSPITALIST HISTORY AND PHYSICAL Patient: Aiden Stauffer Jr. Date: 05/07/2024 PCP: Edgar Fournier MD Date of Service: 05/07/2024 Chief Complaint: Elevated potassium level History of Present Illness Very pleasant 49-year-old white male immunocompromise patient status post liver transplant. With history of end-stage renal disease on home hemodialysis 4 days a week. Reported he missed dialysis at home. Found to have elevated serum potassium at 6.2. Patient underwent dialysis catheter placement done today 05/07/2024 per interventional radiology sequently he underwent for emergent dialysis. He denies any unusual shortness of air no chest pain or palpitations no fever or chills. Nephrology consulted. Discussed with Dr. Quintana at the bedside. Review of Systems Objective Vitals: Temp: [97.8 ??F (36.6 ??C)] 97.8 ??F (36.6 ??C) Pulse: [99] 99 Resp: [16] 16 BP: (177)/(88) 177/88 Intake/Output: No intake or output data in the 24 hours ending 05/07/24 1357 Physical exam: General: Alert and oriented, no acute distress. Overweight Neurologic: Awake, alert, and oriented X3, no apparent focal deficits Eye: EOMI, normal conjunctiva HENT: Normocephalic, atraumatic Neck: no carotid bruits, no JVD Lungs: Poor air entry bilaterally Heart: Normal rate, regular rhythm, no murmur Abdomen: Soft, non-tender, non-distended, normal bowel sounds Musculoskeletal: Normal range of motion and strength, no tenderness or swelling Labs: Results for orders placed or performed during the hospital encounter of 05/07/24 (from the past 24 hour(s)) POC-Potassium Status: Abnormal Collection Time: 05/07/24 10:07 AM Result Value Ref Range POC Potassium 6.2 (HH) 3.5 - 4.9 mmol/L Hepatitis panel, acute Status: Normal Collection Time: 05/07/24 11:28 AM Result Value Ref Range Hep A IgM Nonreactive Nonreactive, Equivocal Hep B C IgM Nonreactive Nonreactive Hepatitis B surface antigen Nonreactive Nonreactive, Equivocal Hepatitis C Ab Nonreactive Nonreactive, Equivocal Radiology: Radiology Results (last day) Procedure Component Value Units Date/Time IR CENTRAL VENOUS [[id number]] Resulted: 05/07/24 1219 Order Status: Sent Updated: 05/07/24 1326 Medications: Scheduled Meds: aspirin 81 mg oral Daily carvediloL 25 mg oral BID w/breakfast & dinner cycloSPORINE 25 mg oral QPM (1800) docusate sodium 100 mg oral BID [START ON 05/08/2024] doxazosin 8 mg oral Daily with breakfast entecavir 0.5 mg oral Daily ergocalciferol 50,000 Units oral Daily famotidine 20 mg oral BID fenofibrate 48 mg oral Daily folic acid 1,000 mcg oral Daily gabapentin 300 mg oral Every Night heparin 5,000 Units subcutaneous Q12H montelukast 10 mg oral Daily mycophenolate 250 mg oral BID sodium zirconium cyclosilicate 10 g oral Daily Continuous Infusions: sodium chloride 0.9 % (NS) PRN Meds: acetaminophen acetaminophen albumin human 25% ALPRAZolam calcium carbonate cloNIDine HCL diphenhydrAMINE hydrALAZINE HYDROmorphone ondansetron oxyCODONE polyethylene glycol 3350 promethazine sodium chloride 0.9% (NS) sodium chloride Past Medical History: Diagnosis Date Chronic kidney disease Diabetes mellitus (HCC) Hepatitis Hypertension SAL (nonalcoholic steatohepatitis) Past Surgical History: Procedure Laterality Date AV FISTULA PLACEMENT TRANSPLANT,LIVER Social History Tobacco Use Smoking status: Never Smokeless tobacco: Never Substance Use Topics Alcohol use: Not Currently Drug use: Never History reviewed. No pertinent family history. No Known Allergies Medications Prior to Admission Medication Sig Dispense Refill Last Dose aspirin 81 MG chewable tablet Take 1 tablet (81 mg total) by mouth. 05/06/2024 carvediloL (COREG) 25 MG tablet Take 1 tablet (25 mg total) by mouth 2 (two) times daily with breakfast and dinner. 05/07/2024 cycloSPORINE (SandIMMUNE) 25 MG capsule Take by mouth. 05/06/2024 doxazosin (CARDURA XL) 8 MG 24 hr tablet 05/07/2024 HumuLIN N NPH Insulin KwikPen 100 unit/mL (3 mL) inpn Inject subcutaneously. 05/06/2024 insulin aspart U-100 (NovoLOG Flexpen U-100 Insulin) 100 unit/mL (3 mL) inpn Inject subcutaneously.05/07/2024 ALPRAZolam (XANAX) 0.5 MG tablet Take 1 tablet (0.5 mg total) by mouth. calcium carbonate (Tums) 500 mg chewable tablet Take 2 tablets (1,000 mg total) by mouth. entecavir (BARACLUDE) 0.5 MG tablet Take by mouth. 05/03/2024 ergocalciferol (ERGOCALCIFEROL) 1,250 mcg (50,000 unit) capsule Take by mouth. [id number]-[id number]-L7-B67-C-Zn 1 mg-1.5 mg- 1.7 mg-50 mg tab fenofibrate (LIPOFEN) 50 mg capsule Take 50 mg by mouth. folic acid (FOLVITE) 1 MG tablet Take 1 tablet (1,000 mcg total) by mouth daily. gabapentin (NEURONTIN) 300 MG capsule Take by mouth. Lokelma 10 gram pwpk Take 1 packet (10 g total) by mouth. methocarbamoL (ROBAXIN) 500 MG tablet Take 1 tablet (500 mg total) by mouth. montelukast (SINGULAIR) 10 mg tablet Take 1 tablet (10 mg total) by mouth daily. mycophenolate (CELLCEPT) 250 mg capsule Take 1 capsule (250 mg total) by mouth. naloxone (NARCAN) 4 mg/actuation spry 1 spray by intraNASAL route. NIFEdipine (ADALAT CC) 90 MG 24 hr tablet Take 1 tablet (90 mg total) by mouth. ofloxacin (FLOXIN) 0.3 % otic solution SMARTSIG:In Ear(s) ondansetron (ZOFRAN-ODT) 8 MG disintegrating tablet Take 1 tablet (8 mg total) by mouth 3 (three) times daily. pantoprazole (PROTONIX) 40 MG tablet Take by mouth. promethazine (PHENERGAN) 25 MG tablet Take 1 tablet (25 mg total) by mouth. tenapanor (Xphozah) 20 mg tab Take 30 mg by mouth. testosterone cypionate (DEPOTESTOTERONE CYPIONATE) 200 mg/mL injection Inject intramuscularly every28 days. Vascepa 1 gram capsule Take 2 capsules (2 g total) by mouth 2 (two) times daily. Orders Placed This Encounter Procedures Central Line IR CENTRAL VENOUS Hepatitis panel, acute Basic Metabolic Panel CBC with automated diff Hepatic function panel CBC - Hemogram (SJ-BKR) Renal diet Vital Signs Notify Provider Telemetry monitoring for Arrhythmia Management Vital Signs Nursing communication Advance diet as tolerated Vital Signs Continuous Pulse Oximetry Telemetry monitoring for Other Indication Intake and Output Ambulate TID Full code Inpatient consult to Pharmacy: dose antimicrobials impacted by dialysis Oxygen Therapy -Nasal Cannula Oxygen Therapy -Nasal Cannula POC-Potassium POC-Potassium Insert Peripheral IV Saline Lock IV Hemodialysis inpatient Admit to inpatient Assessment and Plan Hyperkalemia Due to missed hemodialysis yesterday. Status post hemodialysis catheter placed today 05/07/2024 per interventional radiology. Emergent hemodialysis started. Repeat serum potassium in a.m. Nephrology consulted. End-stage renal disease. On home hemodialysis 4 days a week. Resume home medications. Hypertension. Resume home medications IV hydralazine as needed. Clonidine p.o. as needed. S/p liver transplant. Resume home medications. Diabetes mellitus. Initiate insulin sliding scale. GI and DVT prophylaxis. Disposition. Likely discharge home in a.m. Diet: Orders Placed This Encounter Procedures Renal diet Code Status: Current Code Status Full code Disposition: Signed: Massimo Barnes MD 05/07/2024, 1:57 PM * Edgar Mercado PA-C - 05/07/2024 10:00 AM EDT HPI History Of Present Illness Aiden Stauffer Jr. is a 49 y.o. male presenting with need for dialysis catheter exchange. Past Medical History He has a past medical history of Chronic kidney disease, Diabetes mellitus (HCC), Hepatitis, Hypertension, and SAL (nonalcoholic steatohepatitis). Surgical History He has a past surgical history that includes TRANSPLANT,LIVER and AV fistula placement. Social History He reports that he has never smoked. He has never used smokeless tobacco. He reports that he does not currently use alcohol. He reports that he does not use drugs. Family History His family history is not on file. Allergies Patient has no known allergies. Medications Current Outpatient Medications Medication Instructions ALPRAZolam [...] (ERGOCALCIFEROL) 1,250 mcg (50,000 unit) capsule oral [id number]-C-Zn 1 mg-1.5 mg- 1.7 mg-50 mg tab [...] montelukast (SINGULAIR) 10 mg, oral, Daily mycophenolate (CELLCEPT) 250 mg, oral naloxone (NARCAN) 4 [...] 2 times daily Xphozah 30 mg, oral Review of Systems Review of Systems Last Recorded Vitals Blood pressure (!) 177/88, pulse 99, temperature 97.8 ??F (36.6 ??C), resp. rate 16, weight (!) 136.5 kg (301 lb), SpO2 96 %. Physical Exam Diagnostic Results Hospital Outpatient Visit on 05/07/2024 Component Date Value Ref Range Status POC Potassium 05/07/2024 6.2 (HH) 3.5 - 4.9 mmol/L Final IR CENTRAL VENOUS Narrative: PROCEDURE: TUNNELED CATHETER EXCHANGE 1. Fluoroscopic guided exchange of tunneled central venous catheter for hemodialysis. 2. Moderate conscious sedation. 3. Pre and post central venogram through the existing catheter with disruption of fibrin sheath through balloon angioplasty. CLINICAL INDICATION: 49-year-old male with non functioning tunneled hemodialysis catheter, presented for exchange of hemodialysis catheter. notching press operator: CLARK Brown Medications: IV Conscious sedation was utilized for this procedure using 2 mg of Versed, and 100 mcg of Fentanyl. Additionally, 1% Lidocaine was used for skin and deep subcutaneous local anesthetic. Continuous cardiopulmonary/physiologic activity was monitored by highly qualified health residential child care counselor/nurse during the the entire procedure. IV hydralazine [...] near the neck. Over the wire 6 Swiss sheath was placed into the left brachiocephalic vein. Balloon angioplasty was performed for disruption of the fibular sheath utilizing 10 mm x 40 mm Lamar balloon at multiple stations. The balloon was [...] 32 cm Duraflow catheter. CardioMEMS device noted. Impression: Successful disruption of the fibrin sheath near the tunnel dialysis catheter tip. Successful exchange of left chest wall internal jugular approach tunneled hemodialysis catheter. Line ready to use. Critical results: No COMMUNICATION: Per this written report. Images personally reviewed, interpreted and dictated by CLARK Brown. Assessment & Plan Active Problems: There are no active Hospital Problems. Exchange catheter. Electronically signed by: Edgar Mercado PA-C, 05/07/2024 at 10:48 AM Cosigned by Rohith Hogue MD at 05/07/2024 11:41 AM EDT documented in this encounter Procedure Notes * Rohith Hogue MD - 05/07/2024 1:25 PM EDT Pre-Op/Procedure Diagnosis: Renal failure, need for hemodialysis access Post-OP Diagnosis: Same Procedure Performed: Tunneled dialysis cath exchange with SVC gram and PTAp Procedural Radiologist: Rohith Hogue MD Set Designer: None Sedation: 1 mg iv Versed and 50 micrograms iv Fentanyl Findings: Successful left IJ tunneled dialysis catheter exchange with SVC gram and TUBE FILLER Complications: No immediate complications EBL: Minimal Specimen(s) Removed: None Full report to follow. documented in this encounter Consult Notes * Rossy Freitas MD - 05/07/2024 11:02 AM EDT Consults NAL ESRD Consult History of Present Illness: Aiden Stauffer Jr. is a 49 y.o. male with T2DM, HTN, Liver transplant and ESRD on home HD 4 days a week. Patient was admitted with malfunctioning TDC s/p catheter exchange. Patient was seen and examined on HD. Good blood flow rate through left IJ TDC. 2K bath Reviewed vitals, labs and medications list Patient denied any chest pain, no fever. He missed 2 days of HD treatment due to malfunctioning TDC. Past Medical History: He has a past medical history of Chronic kidney disease, Diabetes mellitus (HCC), Hepatitis, Hypertension, and SAL (nonalcoholic steatohepatitis). Past Surgical History: He has a past surgical history that includes TRANSPLANT,LIVER and AV fistula placement. Social History: He reports that he has never smoked. He has never used smokeless tobacco. He reports that he does not currently use alcohol. He reports that he does not use drugs. Family History: His family history is not on file. Allergies: Patient has no known allergies. Medications: Medications Prior to Admission Medication Sig Dispense Refill Last Dose aspirin 81 MG chewable tablet Take 1 tablet (81 mg total) by mouth. 05/06/2024 carvediloL (COREG) 25 MG tablet Take 1 tablet (25 mg total) by mouth 2 (two) times daily with breakfast and dinner. 05/07/2024 cycloSPORINE (SandIMMUNE) 25 MG capsule Take by mouth. 05/06/2024 doxazosin (CARDURA XL) 8 MG 24 hr tablet 05/07/2024 HumuLIN N NPH Insulin KwikPen 100 unit/mL (3 mL) inpn Inject subcutaneously. 05/06/2024 insulin aspart U-100 (NovoLOG Flexpen U-100 Insulin) 100 unit/mL (3 mL) inpn Inject subcutaneously.05/07/2024 ALPRAZolam (XANAX) 0.5 MG tablet Take 1 tablet (0.5 mg total) by mouth. calcium carbonate (Tums) 500 mg chewable tablet Take 2 tablets (1,000 mg total) by mouth. entecavir (BARACLUDE) 0.5 MG tablet Take by mouth. 05/03/2024 ergocalciferol (ERGOCALCIFEROL) 1,250 mcg (50,000 unit) capsule Take by mouth. [id number]-C9-I8-L31-C-Zn 1 mg-1.5 mg- 1.7 mg-50 mg tab fenofibrate (LIPOFEN) 50 mg capsule Take 50 mg by mouth. folic acid (FOLVITE) 1 MG tablet Take 1 tablet (1,000 mcg total) by mouth daily. gabapentin (NEURONTIN) 300 MG capsule Take by mouth. Lokelma 10 gram pwpk Take 1 packet (10 g total) by mouth. methocarbamoL (ROBAXIN) 500 MG tablet Take 1 tablet (500 mg total) by mouth. montelukast (SINGULAIR) 10 mg tablet Take 1 tablet (10 mg total) by mouth daily. mycophenolate (CELLCEPT) 250 mg capsule Take 1 capsule (250 mg total) by mouth. naloxone (NARCAN) 4 mg/actuation spry 1 spray by intraNASAL route. NIFEdipine (ADALAT CC) 90 MG 24 hr tablet Take 1 tablet (90 mg total) by mouth. ofloxacin (FLOXIN) 0.3 % otic solution SMARTSIG:In Ear(s) ondansetron (ZOFRAN-ODT) 8 MG disintegrating tablet Take 1 tablet (8 mg total) by mouth 3 (three) times daily. pantoprazole (PROTONIX) 40 MG tablet Take by mouth. promethazine (PHENERGAN) 25 MG tablet Take 1 tablet (25 mg total) by mouth. tenapanor (Xphozah) 20 mg tab Take 30 mg by mouth. testosterone cypionate (DEPOTESTOTERONE CYPIONATE) 200 mg/mL injection Inject intramuscularly every28 days. Vascepa 1 gram capsule Take 2 capsules (2 g total) by mouth 2 (two) times daily. Review of Systems 12 Points ROS negative except as per HPI Vitals: Blood pressure (!) 177/88, pulse 99, temperature 97.8 ??F (36.6 ??C), resp. rate 16, weight (!) 136.5 kg (301 lb), SpO2 96 %. Physical Exam Constitutional: Appearance: Normal appearance. He is obese. He is not ill-appearing. Comments: Lef IJ TDC HENT: Head: Normocephalic and atraumatic. Mouth/Throat: Mouth: Mucous membranes are dry. Eyes: Extraocular Movements: Extraocular movements intact. Pupils: Pupils are equal, round, and reactive to light. Cardiovascular: Rate and Rhythm: Normal rate. Pulmonary: Effort: Pulmonary effort is normal. Abdominal: General: There is distension. Palpations: Abdomen is soft. Musculoskeletal: Right lower leg: Edema present. Left lower leg: Edema present. Skin: General: Skin is dry. Neurological: General: No focal deficit present. Mental Status: He is alert. Mental status is at baseline. Psychiatric: Mood and Affect: Mood normal. Behavior: Behavior normal. Relevant Results: Results for orders placed or performed during the hospital encounter of 05/07/24 (from the past 24 hour(s)) POC-Potassium Status: Abnormal Collection Time: 05/07/24 10:07 AM Result Value Ref Range POC Potassium 6.2 (HH) 3.5 - 4.9 mmol/L Hepatitis panel, acute Status: Normal Collection Time: 05/07/24 11:28 AM Result Value Ref Range Hep A IgM Nonreactive Nonreactive, Equivocal Hep B C IgM Nonreactive Nonreactive Hepatitis B surface antigen Nonreactive Nonreactive, Equivocal Hepatitis C Ab Nonreactive Nonreactive, Equivocal Assessment & Plan Active Problems: There are no active Hospital Problems. - ESRD home HD - missed sessions due to malfunctioning TDC S/p catheter replacement - Hyperkalemia - HTN - Anemia of CKD - CKD MBD - T2DM - S/p liver transplant for SAL on [facility] HD today 2K bath - good blood flow rate through left IJ TDC ( placed on 05/07/24) Dose all meds to HD RENAL diet Check PO4 Will continue managing ESRD related complications Ok to DC in AM Electronically signed by Rossy Freitas MD 05/07/2024 at 11:02 AM documented in this encounter Miscellaneous Notes * Nursing Progress Notes - Ayden Sellers RN - 05/07/2024 4:58 PM EDT 05/07/24 1645 Vitals Temp 98 ??F (36.7 ??C) Temp src Oral Pulse 99 Resp 18 BP 125/77 Pain Assessment Pain Assessment Scale 0-10 Pain Score Zero Hemodialysis Access Subclavian vein catheter Left Subclavian Placement Date/Time: 05/07/24 1319 Inserted by: kenan Access Type: Subclavian vein catheter Orientation: Left Access Location: Subclavian Securement Method: Sutured Patient Tolerance: Tolerated well Site Assessment Clean;Dry;Intact Status Deaccessed Catheter Exit Site Clear Type of Dressing Non-woven, adhesive Dressing Status Clean;Dry;Intact Blue Port Flushed;Capped Red Port Flushed;Capped Pre-Hemodialysis Assessment Patient Status Departed Transfer Mode Bed During Hemodialysis Assessment Hemodialysis Status Completed Ultrafiltration Status Completed UF Goal 3500 ml UF Removed (mL) 3400 ml Remaining Time (min) 0 mins UF State Off Blood Volume Processed 65.1 ml Post-Hemodialysis Assessment Total Blood Volume Processed 64.1 mL Duration of Treatment (minutes) 180 min Hemodialysis UF Net Intake (mL) 500 mL Hemodialysis UF Net Output (mL) 3400 mL Hemodialysis UF Gross (mL) 2900 mL Patient Status stable * Nursing Progress Notes - Ayden Sellers RN - 05/07/2024 1:42 PM EDT 05/07/24 1342 Vitals Temp 98 ??F (36.7 ??C) Temp src Oral Pulse 70 Resp 20 BP (!) 146/96 Pain Assessment Pain Assessment Scale 0-10 Pain Score Zero Hemodialysis Access Subclavian vein catheter Left Subclavian Placement Date/Time: 05/07/24 1319 Inserted by: kenan Access Type: Subclavian vein catheter Orientation: Left Access Location: Subclavian Securement Method: Sutured Patient Tolerance: Tolerated well Site Assessment Clean;Dry;Intact Status Accessed Catheter Exit Site Clear Type of Dressing Non-woven, adhesive Dressing Status Clean;Dry;Intact Blue Port Flushed;Blood return noted Red Port Flushed;Blood return noted Pre-Hemodialysis Assessment Patient Status Arrived Transfer Mode Bed HBs AG Date Last Drawn 04/24/24 HBs AG result Negative Machine [id number] Test Completed Yes Chlorine / Chloramine 1st Check Time 1330 Chlorine / Chloramine Result <0.1 Reverse Osmosis [id number] Alarm Test Passed Treatment Type UF and Hemodialysis Dialyzer F-180 Dialysate Na (mEq/L) (138) Dialysate K (mEq/L) 2 mEq/L Dialysate Ca (mEq/L) 2.5 mEq/L Dialysate HCO3 (mEq/L) 35 mEq/L Pre-Hemodialysis Comments tx started During Hemodialysis Assessment Hemodialysis Status Initiated Ultrafiltration Status Initiated Prime Volume 250 Blood Flow Rate (mL/min) 350 mL/min Ultrafiltration Rate (mL/hr) 1166 mL/hr Venous Pressure (mmHg) 192 Transmembrane Pressure (mmHg) 34 mmHg Arterial Pressure (mmHg) -129 UF Goal 3500 ml UF Removed (mL) 0 ml Dialysate Flow Rate (mL/min) 750 ml/min Remaining Time (min) 180 mins UF State On documented in this encounter Plan of Treatment Not on file documented as of this encounter Procedures Procedure Name Priority Date/Time Associated Diagnosis Comments IR CENTRAL VENOUS Routine 05/07/2024 1:2 6 PM EDT End stage renal disease (HCC) HEPATITIS PANEL, ACUTE STAT 05/07/2024 11:28 AM EDT [id number] ALYSIS INPATIENT Routine 05/07/2024 11:11 AM EDT POCT-POTASSIUM Routine 05/07/2024 10:07 AM EDT ISTAT GLUCOSE POC Routine 05/07/2024 9:5 2 AM EDT POCT-POTASSIUM Routine 05/07/2024 9:52 AM EDT documented in this encounter Results * IR CENTRAL VENOUS (05/07/2024 1:26 PM EDT) Anatomical Region Laterality Modality Interventional R adiology 05/07/2024 9:04 PM EDT Impressions 05/07/2024 9:07 PM EDT 1. Superior venacavogram demonstrates large fibrin sheath. This was disrupted with a 12 mm balloon. 2. Successful catheter exchange with placement of a new 27 cm Glidepath dialysis catheter. THANK YOU FOR ALLOWING US TO PARTICIPATE IN THE CARE OF YOUR PATIENT. Images reviewed, interpreted, dictated and electronically signed by Rohith Hogue MD Voice operations support representative technology ([employer]) is used for the dictation of this note and sound-alike words might be erroneously placed despite reviewing this note for accuracy. Errors in dictation may reflect use of voice recognition software and not all errors in operations support representative may have been detected prior to signing. Narrative 05/07/2024 9:07 PM EDT DIALYSIS CATHETER EXCHANGE WITH SUPERIOR VENACAVOGRAM HISTORY: End-stage renal disease requiring hemodialysis. INDICATION: Nonfunctioning indwelling catheter. FLUOROSCOPY TIME: 3.1 minutes RADIATION DOSE: ??Reference air kerma 325 mGy. DAP: 6077 cGy.cm2 CONSCIOUS SEDATION: 2 mg of IV Versed and 100 mcg of fentanyl were administered. Continuous vital sign monitoring was used. An RN was present during the sedation process. Overall sedation time was 15 minutes. PROPHYLACTIC ANTIBIOTIC: The patient was administered a one-time prophylactic dose of 3 g Ancef according to the interventional radiology standing antibiotic orders. PROCEDURE: The procedure, risks and benefits were explained to the patient. Informed and written consent was obtained. The procedure was performed using all elements of maximum sterile barrier technique. All active operators wore a head cover, mask, sterile gown, and sterile gloves. Other nonsterile participants wore a head cover and mask. The operative site was prepped and draped in the usual sterile manner with 2% chlorhexidine. The area was covered with a large sterile drape. A timeout procedure was performed. The skin was anesthetized 1% lidocaine using blunt and sharp dissection, the indwelling left internal jugular tunneled catheter was loosened from the underlying soft tissues. An 0.035 stiff-angled Glidewire was then inserted under fluoroscopic guidance through the catheter into the inferior vena cava. The catheter was retracted and the superior venacavogram was performed. This demonstrated a fibrin sheath. The catheter was removed and a 12 mm balloon was inserted and used to dilate the fibrin sheath. A follow-up venogram demonstrates no residual sheath. A new 27 cm Gidepath dialysis catheter was positioned. There was good function of the catheter. The catheter was heparinized per the grant specialist's protocol. The catheter sutured in place. The patient tolerated the procedure well. Procedure Note Rohith Hogue MD - 05/07/2024 DIALYSIS CATHETER EXCHANGE WITH SUPERIOR VENACAVOGRAM HISTORY: End-stage renal disease requiring hemodialysis. INDICATION: Nonfunctioning indwelling catheter. FLUOROSCOPY TIME: 3.1 minutes RADIATION DOSE: Reference air kerma 325 mGy. DAP: 6077 cGy.cm2 CONSCIOUS SEDATION: 2 mg of IV Versed and 100 mcg of fentanyl were administered. Continuous vital sign monitoring was used. An RN was present during the sedation process. Overall sedation time was 15 minutes. PROPHYLACTIC ANTIBIOTIC: The patient was administered a one-time prophylactic dose of 3 g Ancef according to the interventional radiology standing antibiotic orders. PROCEDURE: The procedure, risks and benefits were explained to the patient. Informed and written consent was obtained. The procedure was performed using all elements of maximum sterile barrier technique. All active operators wore a head cover, mask, sterile gown, and sterile gloves. Other nonsterile participants wore a head cover and mask. The operative site was prepped and draped in the usual sterile manner with 2% chlorhexidine. The area was covered with a large sterile drape. A timeout procedure was performed. The skin was anesthetized 1% lidocaine using blunt and sharp dissection, the indwelling left internal jugular tunneled catheter was loosened from the underlying soft tissues. An 0.035 stiff-angled Glidewire was then inserted under fluoroscopic guidance through the catheter into the inferior vena cava. The catheter was retracted and the superior venacavogram was performed. This demonstrated a fibrin sheath. The catheter was removed and a 12 mm balloon was inserted and used to dilate the fibrin sheath. A follow-up venogram demonstrates no residual sheath. A new 27 cm Gidepath dialysis catheter was positioned. There was good function of the catheter. The catheter was heparinized per the grant specialist's protocol. The catheter sutured in place. The patient tolerated the procedure well. IMPRESSION: 1. Superior venacavogram demonstrates large fibrin sheath. This was disrupted with a 12 mm balloon. 2. Successful catheter exchange with placement of a new 27 cm Glidepath dialysis catheter. THANK YOU FOR ALLOWING US TO PARTICIPATE IN THE CARE OF YOUR PATIENT. Images reviewed, interpreted, dictated and electronically signed by Rohith Hogue MD Voice operations support representative technology ([employer]) is used for the dictation of this note and sound-alike words might be erroneously placed despite reviewing this note for accuracy. Errors in dictation may reflect use of voice recognition software and not all errors in operations support representative may have been detected prior to signing. us Man Sky MD IMG IR ORDERABLES Final Res ult * Hepatitis panel, acute (05/07/2024 11:28 AM EDT) Hep A IgM Nonreactive Nonreactive, Equivocal 05/07/2024 12:45 PM EDT [facility] Hep B C IgM Nonreactive Nonreactive 05/07/2024 12:45 PM EDT [facility] Hepatitis B surface antigen Nonreactive Nonreactive, Equivocal 05/07/2024 12:45 PM EDT [facility] Hepatitis C Ab Nonreactive Nonreactive, Equivocal 05/07/2024 12:45 PM EDT [facility] Blood Venipuncture / Unknown 05/07/2024 11:28 AM EDT 05/07/2024 11:28 AM EDT Narrative [facility] - 05/07/2024 12:45 PM EDT Hepatitis A Antibody IgM: (a) A [...] related to biotin interference with lab tests. Rossy Freitas MD LAB BLOOD ORDERABLES Final Re sult Performing Organization Address City/State/[facility] Co de Phone Number [facility] [address] [phone] * (ABNORMAL) POC-Potassium (05/07/2024 10:07 AM EDT) POC Potassium 6.2(HH) 3.5 - 4.9 mmol/L 05/07/2024 10:10 AM EDT [facility] Blood 05/07/2024 10:0 7 AM EDT 05/07/2024 10:10 AM EDT [facility] - 05/07/2024 10:10 AM EDT Forest Ecologist ID is - [id number] Man Sky MD POINT OF CARE TEST ORDERABL ES Final Result Performing Organization Address [facility] Co de Phone Number [facility] [address] [phone] * (ABNORMAL) POC-Potassium (05/07/2024 9:52 AM EDT) POC Potassium 6.4(HH) 3.5 - 4.9 mmol/L 05/07/2024 3:46 PM EDT [facility] Blood 05/07/2024 9:52 AM EDT 05/07/2024 3:46 PM EDT Narrative [facility] - 05/07/2024 3:46 PM EDT Forest Ecologist ID is - [id number] us Man Sky MD POINT OF CARE TEST ORDERABL ES Final Result Performing Organization Address [facility] Co de Phone Number [facility] [address] [phone] * (ABNORMAL) Glucose, iSTAT Meter (05/07/2024 9:52 AM EDT) POC-GLUCOSE 131(H) 70 - 105 mg/dL 05/07/2024 3:46 PM EDT [facility] Blood 05/07/2024 9:52 AM EDT 05/07/2024 3:46 PM EDT Narrative [facility] - 05/07/2024 3:46 PM EDT Forest Ecologist ID is - [id number] us Man Sky MD POINT OF CARE TEST ORDERABL ES Final Result Performing Organization Address [facility] Co de Phone Number [facility] [address] [phone] documented in this encounter Visit Diagnoses Diagnosis Hyperkalemia- Primary Hyperpotassemia End stage renal disease (HCC) End stage renal disease documented in this encounter Admitting Diagnoses Diagnosis Hyperkalemia Hyperpotassemia documented in this encounter Administered Medications Inactive Administered Medications - up to 3 most recent administrations Medication Order MAR Action Action Date Dose Rate Site acetaminophen (TYLENOL) tablet 1,000 mg 1,000 mg Every 6 hours PRN, oral, mild pain (1-3), moderate pain (4-6), and severe pain (7-10), Starting on Mon05/07/24 at 1351, Recommended maximum dose of acetaminophen is 4000 mg from all sources in 24 hours ceFAZolin (ANCEF) injection IMG once as needed, other - see admin instructions, Starting on Mon05/07/24 at 1257, For 1 dose, Intra-op Given 05/07/2024 12:57 PM EDT 3 g Left Arm cloNIDine HCL (CATAPRES) tablet 0.1 mg 0.1 mg Every 8 hours PRN, oral, hypertension (sbp greater than 160), Starting on Mon05/07/24 at 1352, Look-alike/Sound-alike medication dextrose 50% (D50W) injection 25 g 25 g Every 15 min PRN, intravenous, low blood glucose (specify value in prn comments), less than 41 mg/dL or 41-69 mg/dL and unable to take PO, Starting on Mon05/07/24 at 1402, Repeat blood glucose every 15 minutes until blood glucose greater than 70 mg/dL. Call Provider if not resolved after 2 treatments Repeat BS in 1 hour, retime for 1 hour after blood sugar greater than 70 mg/dL If less than 41: Repeat Finger stick within 5 minutes with same machine Send serum glucose level: Do not wait on lab to treat diphenhydrAMINE (BENADRYL) capsule 25 mg 25 mg Every 6 hours PRN, oral, itching, Starting on Mon05/07/24 at 1348 docusate sodium (COLACE) capsule 100 mg 100 mg 2 times daily, oral, First dose on Mon05/07/24 at 1430, Bowel Regimen - for prevention of constipation. famotidine (PEPCID) tablet 20 mg 20 mg 2 times daily, oral, First dose on Mon05/07/24 at 1430, Pharmacist to renally dose if CrCl is less than 50 mL/min or on CRRT. fentaNYL PF (SUBLIMAZE) injection IMG once as needed, intravenous, Starting on Mon05/07/24 at 1310, For 1 dose, Intra-op Given 05/07/2024 1:10 PM EDT 50 mcg fentaNYL PF (SUBLIMAZE) injection IMG once as needed, intravenous, Starting on Mon05/07/24 at 1320, For 1 dose, Intra-op Given 05/07/2024 1:20 PM EDT 50 mcg glucagon injection 1 mg 1 mg Every 15 min PRN, intraMUSCULAR, low blood glucose (specify value in prn comments), For Patients without IV access and blood glucose 41-69 mg/dL AND unable to take PO OR Less than 41 mg/dL, Starting on Mon05/07/24 at 1402, Caution: glucagon . Roll patient on their side when administering to prevent aspiration. Call Provider if not resolved after 2 treatments Repeat BS in 1 hour, retime for 1 hour after blood sugar greater than 70 mg/dL glucose chewable tablet 16 g 16 g Every 15 min PRN, oral, low blood glucose (specify value in prn comments), 41-69 mg/dL, Starting on Mon05/07/24 at 1402, For Patients who can take oral AND [...] after blood sugar greater than 70 mg/dL heparin injection 5,000 Units 5,000 Units Every 12 hours scheduled, subcutaneous, First dose on Mon05/07/24 at 1430 hydrALAZINE (APRESOLINE) injection 5 mg 5 mg Every 6 hours PRN, intravenous, hypertension (sbp greater than 160), Starting on Mon05/07/24 at 1351, Hold if SBP < 100 mmHg, DBP < 50 mmHg, or patient is on pressor. Look-alike/Sound-alike medication HYDROmorphone (DILAUDID) injection 0.5 mg 0.5 mg Every 4 hours PRN, intravenous, severe pain (7-10), Starting on Mon05/07/24 at 1357 insulin glargine-yfgn (SEMGLEE) solution 10 Units 10 Units Every Night, subcutaneous, First dose on Mon05/07/24 at 2100, Before holding basal insulin, contact provider for approval to hold. insulin lispro (HUMALOG, ADMELOG) injection 0-24 Units 0-24 Units 4 times daily (before meals and nightly), subcutaneous, First dose on Mon05/07/24 at 1630, If Blood Sugar is less than 180 beteween 1505-6552, DO NOT give corrective insulin unless otherwise ordered. Corrective Scale D 0 units for fingerstick blood glucose LESS than 140 mg/dL 4 units subcutaneously once for fingerstick blood glucose [140] - [180] mg/dL 8 units subcutaneously once for fingerstick blood glucose [181] - [220] mg/dL 12 units subcutaneously once for fingerstick blood glucose [221] - [260] mg/dL 16 units subcutaneously once for fingerstick blood glucose [261] - [300] mg/dL 20 units subcutaneously once for fingerstick blood glucose [301] - [350] mg/dL 24 units subcutaneously once for fingerstick blood glucose [351] - [400] mg/dL Notify provider of glucose levels LESS than [70] and GREATER than [400] iopamidoL (ISOVUE-300) injection IMG once as needed, Starting on Mon05/07/24 at 1321, For 1 dose, Intra-op Given 05/07/2024 1:21 PM EDT 20 mLs Chest lidocaine (PF) injection 10 mg/mL (1%) IMG once as needed, intradermal, Starting on Mon05/07/24 at 1313, For 1 dose, Intra-op Given 05/07/2024 1:13 PM EDT 10 mLs Left Upper Chest midazolam (PF) (VERSED) injection IMG once as needed, intravenous, Starting on Mon05/07/24 at 1310, For 1 dose, Intra-op Given 05/07/2024 1:10 PM EDT 1 mg midazolam (PF) (VERSED) injection IMG once as needed, intravenous, Starting on Mon05/07/24 at 1321, For 1 dose, Intra-op Given 05/07/2024 1:21 PM EDT 1 mg ondansetron PF (ZOFRAN) injection 4 mg 4 mg As needed, intravenous, nausea, vomiting, Starting on Mon05/07/24 at 0923, For 1 dose, For IV push, give over 2 - 5 minutes., Pre-op oxyCODONE (ROXICODONE) immediate release tablet 5 mg 5 mg Every 4 hours PRN, oral, moderate pain (4-6), Starting on Mon05/07/24 at 1357, Look-alike/Sound-alike medication polyethylene glycol (GLYCOLAX) packet 17 g 17 g Daily as needed, oral, constipation, Starting on Mon05/07/24 at 1351, Bowel Regimen - for prevention of constipation. promethazine (PHENERGAN) 12.5 mg in sodium chloride 0.9 % (NS) 50 mL IVPB 12.5 mg Every 6 hours PRN, intravenous, at 150 mL/hr, nausea, vomiting, Starting on Mon05/07/24 at 1351, 1st line. Give IV if patient is unable to take orally. If inadequate response within 60 minutes, proceed to next line-agent for same PRN Reason or contact provider if no further options ordered. sodium chloride 0.9 % infusion 1,000 mL Continuous, intravenous, at 75 mL/hr, Starting on Mon05/07/24 at 1000, Do not administer if history of CHF or renal failure. Call department for further instructions., Pre-op sodium chloride 0.9 % infusion Continuous PRN, intravenous, Starting on Mon05/07/24 at 1256, Intra-op New Bag 05/07/2024 12:56 PM EDT 5 mL/hr 5 mL/hr sodium chloride 0.9% (NS) bolus 250 mL Daily as needed, intravenous, Administer over 60 Minutes, SBP less than dialysis Target, Starting on Mon05/07/24 at 1110, Administer during dialysis if SBP less than dialysis target. sodium chloride flush 10 mL 10 mL As needed, intravenous, line care, Starting on Mon05/07/24 at 0923, Every 8 hours and PRN to flush, Pre-op sodium zirconium cyclosilicate (LOKELMA) packet 10 g 10 g Daily, oral, First dose (after last reorder) on Mon05/07/24 at 2330, Administer other oral meds 2 hrs before or 2 hrs after Lokelma. Empty entire contents of pkt(s) into a drinking glass containing about 3 tbsp of water or more, if desired. Stir well & drink immediately. If powder remains in drinking glass, add water, stir, & drink immediately. Repeat until no powder remains to ensure the entire dose is taken. documented in this encounter Active and Recently Administered Medications Times are shown in EDT. Scheduled Medication Order 05/05/2024 05/06/2024 05/07/2024 aspirin chewable tablet 81 mg 81 mg Daily, oral, First dose on Mon05/07/24 at 1430 1430 (Due) carvediloL (COREG) tablet 25 mg 25 mg 2 times daily with breakfast and dinner, oral, First dose on Mon05/07/24 at 1700, Hold for systolic BP < 90 mmHg or for HR < 50 BPM 1700 (Due) cycloSPORINE (SandIMMUNE) capsule 25 mg 25 mg Daily (1800), oral, First dose on Mon05/07/24 at 1800, Caution: Recommend wearing gloves during administration. DO NOT BREAK/CRUSH/CHEW. Employees who are , trying to become , or should not handle this medication. Dispose of trace medication (including packaging) in the BLACK waste bin. docusate sodium (COLACE) capsule 100 mg 100 mg 2 times daily, oral, First dose on Mon05/07/24 at 1430, Bowel Regimen - for prevention of constipation. 1430 (Due) entecavir (BARACLUDE) tablet 0.5 mg 0.5 mg Daily, oral, First dose on Mon05/07/24 at 1430, Caution: Recommend wearing gloves during administration. DO NOT BREAK/CRUSH/CHEW. Employees who are , trying to become , or should not handle this medication. Dispose of trace medication (including packaging) in the BLACK waste bin. 1430 (Due) famotidine (PEPCID) tablet 20 mg 20 mg 2 times daily, oral, First dose on Mon05/07/24 at 1430, Pharmacist to renally dose if CrCl is less than 50 mL/min or on CRRT. 1430 (Due) fenofibrate (TRICOR) tablet 48 mg 48 mg Daily, oral, First dose on Mon05/07/24 at 1430, Therapeutic Interchange for Antilipemic Agents. 1430 (Due) folic acid (FOLVITE) tablet 1,000 mcg 1,000 mcg Daily, oral, First dose on Mon05/07/24 at 1430 1430 (Due) gabapentin (NEURONTIN) capsule 300 mg 300 mg Every Night, oral, First dose on Mon05/07/24 at 2100 heparin injection 5,000 Units 5,000 Units Every 12 hours scheduled, subcutaneous, First dose on Mon05/07/24 at 1430 1430 (Due) insulin glargine-yfgn (SEMGLEE) solution 10 Units 10 Units Every Night, subcutaneous, First dose on Mon05/07/24 at 2100, Before holding basal insulin, contact provider for approval to hold. insulin lispro (HUMALOG, ADMELOG) injection 0-24 Units 0-24 Units 4 times daily (before meals and nightly), subcutaneous, First dose on Mon05/07/24 at 1630, If Blood Sugar is less than 180 beteween 6181-0507, DO NOT give corrective insulin unless otherwise ordered. Corrective Scale D 0 units for fingerstick blood glucose LESS than 140 mg/dL 4 units subcutaneously once for fingerstick blood glucose [140] - [180] mg/dL 8 units subcutaneously once for fingerstick blood glucose [181] - [220] mg/dL 12 units subcutaneously once for fingerstick blood glucose [221] - [260] mg/dL 16 units subcutaneously once for fingerstick blood glucose [261] - [300] mg/dL 20 units subcutaneously once for fingerstick blood glucose [301] - [350] mg/dL 24 units subcutaneously once for fingerstick blood glucose [351] - [400] mg/dL Notify provider of glucose levels LESS than [70] and GREATER than [400] 1630 (Due) montelukast (SINGULAIR) tablet 10 mg 10 mg Daily, oral, First dose on Mon05/07/24 at 1430 1430 (Due) mycophenolate (CELLCEPT) capsule 250 mg 250 mg 2 times daily, oral, First dose on Mon05/07/24 at 1430, * DO NOT CRUSH THIS DOSAGE FORM * Caution: Recommend wearing gloves during administration. DO NOT BREAK/CRUSH/CHEW. Employees who are , trying to become , or should not handle this medication. Dispose of trace medication (including packaging) in the BLACK waste bin. 1430 (Due) sodium zirconium cyclosilicate (LOKELMA) packet 10 g 10 g Daily, oral, First dose (after last reorder) on Mon05/07/24 at 2330, Administer other oral meds 2 hrs before or 2 hrs after Lokelma. Empty entire contents of pkt(s) into a drinking glass containing about 3 tbsp of water or more, if desired. Stir well & drink immediately. If powder remains in drinking glass, add water, stir, & drink immediately. Repeat until no powder remains to ensure the entire dose is taken. Continuous Medication Order 05/05/2024 05/06/2024 05/07/2024 sodium chloride 0.9 % infusion 1,000 mL Continuous, intravenous, at 75 mL/hr, Starting on Mon05/07/24 at 1000, Do not administer if history of CHF or renal failure. Call department for further instructions., Pre-op 1000 (Due) PRN Medication Order 05/05/2024 05/06/2024 05/07/2024 acetaminophen (TYLENOL) tablet 1,000 mg 1,000 mg Every 6 hours PRN, oral, mild pain (1-3), moderate pain (4-6), and severe pain (7-10), Starting on Mon05/07/24 at 1351, Recommended maximum dose of acetaminophen is 4000 mg from all sources in 24 hours ALPRAZolam (XANAX) tablet 0.5 mg 0.5 mg 2 times daily PRN, oral, anxiety, Starting on Mon05/07/24 at 1353 calcium carbonate (TUMS) chewable tablet 500 mg (elemental calcium 200 mg) 1,000 mg Daily as needed (2 tablet), oral, indigestion, Starting on Mon05/07/24 at 1353, Each tablet contains 500 mg of calcium carbonate which equals 200 mg of elemental calcium. ceFAZolin (ANCEF) injection (COMPLETED) IMG once as needed, other - see admin instructions, Starting on Mon05/07/24 at 1257, For 1 dose, Intra-op 1257 (Given - Provid er: Judi Rapp RN) cloNIDine HCL (CATAPRES) tablet 0.1 mg 0.1 mg Every 8 hours PRN, oral, hypertension (sbp greater than 160), Starting on Mon05/07/24 at 1352, Look-alike/Sound-alike medication dextrose 50% (D50W) injection 25 g 25 g Every 15 min PRN, intravenous, low blood glucose (specify value in prn comments), less than 41 mg/dL or 41-69 mg/dL and unable to take PO, Starting on Mon05/07/24 at 1402, Repeat blood glucose every 15 minutes until blood glucose greater than 70 mg/dL. Call Provider if not resolved after 2 treatments Repeat BS in 1 hour, retime for 1 hour after blood sugar greater than 70 mg/dL If less than 41: Repeat Finger stick within 5 minutes with same machine Send serum glucose level: Do not wait on lab to treat diphenhydrAMINE (BENADRYL) capsule 25 mg 25 mg Every 6 hours PRN, oral, itching, Starting on Mon05/07/24 at 1348 fentaNYL PF (SUBLIMAZE) injection (COMPLETED) IMG once as needed, intravenous, Starting on Mon05/07/24 at 1310, For 1 dose, Intra-op 1310 (Given - Provid er: Judi Rapp RN) fentaNYL PF (SUBLIMAZE) injection (COMPLETED) IMG once as needed, intravenous, Starting on Mon05/07/24 at 1320, For 1 dose, Intra-op 1320 (Given - Provid er: Judi Rapp RN) glucagon injection 1 mg 1 mg Every 15 min PRN, intraMUSCULAR, low blood glucose (specify value in prn comments), For Patients without IV access and blood glucose 41-69 mg/dL AND unable to take PO OR Less than 41 mg/dL, Starting on Mon05/07/24 at 1402, Caution: glucagon . Roll patient on their side when administering to prevent aspiration. Call Provider if not resolved after 2 treatments Repeat BS in 1 hour, retime for 1 hour after blood sugar greater than 70 mg/dL glucose chewable tablet 16 g 16 g Every 15 min PRN, oral, low blood glucose (specify value in prn comments), 41-69 mg/dL, Starting on Mon05/07/24 at 1402, For Patients who can take oral AND [...] after blood sugar greater than 70 mg/dL hydrALAZINE (APRESOLINE) injection 5 mg 5 mg Every 6 hours PRN, intravenous, hypertension (sbp greater than 160), Starting on Mon05/07/24 at 1351, Hold if SBP < 100 mmHg, DBP < 50 mmHg, or patient is on pressor. Look-alike/Sound-alike medication HYDROmorphone (DILAUDID) injection 0.5 mg 0.5 mg Every 4 hours PRN, intravenous, severe pain (7-10), Starting on Mon05/07/24 at 1357 iopamidoL (ISOVUE-300) injection (COMPLETED) IMG once as needed, Starting on Mon05/07/24 at 1321, For 1 dose, Intra-op 1321 (Given - Provid er: Rohith Hogue MD) lidocaine (PF) injection 10 mg/mL (1%) (COMPLETED) IMG once as needed, intradermal, Starting on Mon05/07/24 at 1313, For 1 dose, Intra-op 1313 (Given - Provid er: Rohith Hogue MD) midazolam (PF) (VERSED) injection (COMPLETED) IMG once as needed, intravenous, Starting on Mon05/07/24 at 1310, For 1 dose, Intra-op 1310 (Given - Provid er: Judi Rapp RN) midazolam (PF) (VERSED) injection (COMPLETED) IMG once as needed, intravenous, Starting on Mon05/07/24 at 1321, For 1 dose, Intra-op 1321 (Given - Provid er: Judi Rapp RN) ondansetron PF (ZOFRAN) injection 4 mg 4 mg As needed, intravenous, nausea, vomiting, Starting on Mon05/07/24 at 0923, For 1 dose, For IV push, give over 2 - 5 minutes., Pre-op oxyCODONE (ROXICODONE) immediate release tablet 5 mg 5 mg Every 4 hours PRN, oral, moderate pain (4-6), Starting on Mon05/07/24 at 1357, Look-alike/Sound-alike medication polyethylene glycol (GLYCOLAX) packet 17 g 17 g Daily as needed, oral, constipation, Starting on Mon05/07/24 at 1351, Bowel Regimen - for prevention of constipation. promethazine (PHENERGAN) 12.5 mg in sodium chloride 0.9 % (NS) 50 mL IVPB 12.5 mg Every 6 hours PRN, intravenous, at 150 mL/hr, nausea, vomiting, Starting on Mon05/07/24 at 1351, 1st line. Give IV if patient is unable to take orally. If inadequate response within 60 minutes, proceed to next line-agent for same PRN Reason or contact provider if no further options ordered. sodium chloride 0.9 % infusion (COMPLETED) Continuous PRN, intravenous, Starting on Mon05/07/24 at 1256, Intra-op 1256 (New Bag - Prov ider: Judi Rapp RN) sodium chloride 0.9% (NS) bolus 250 mL Daily as needed, intravenous, Administer over 60 Minutes, SBP less than dialysis Target, Starting on Mon05/07/24 at 1110, Administer during dialysis if SBP less than dialysis target. sodium chloride flush 10 mL(Linked Group 1) 10 mL As needed, intravenous, line care, Starting on Mon05/07/24 at 0923, Every 8 hours and PRN to flush, Pre-op Linked Groups Order Group 1: Insert Peripheral IV (CANCELED) STAT, Once, On Mon05/07/24 at 0924, For 1 occurrence, Insert IV access in left arm if access not already in place. May use right arm if left arm contains a dialysis access, side of lymph node dissection or otherwise not usable for medical reasons. 20 guage angiocath is preferred., Pre-op And Saline Lock IV (CANCELED) Routine, Once, On Mon05/07/24 at 0924, For 1 occurrence, Pre-op And sodium chloride flush 10 mLJump to med 10 mL As needed, intravenous, line care, Starting on Mon05/07/24 at 0923, Every 8 hours and PRN to flush, Pre-op documented in this encounter Care Teams Nanny Caregiver Relationship Specialty Start Date End Date Edgar Fournier MD [address] [place] [address] PCP - General Family Medicine 01/17/23 06/26/24 documented as of this encounter
--- OUTSIDE RECORDS SUMMARY | 2024-07-12 12:21 | XMS_ITS | Encounter Summary ---
Author Organization [facility] In iatives Address [address] [place] [place] [address] Care Team Providers Care Card Hand Name Role Phone Edgar Fournier MD Primary Care Provider [phone] Encounter Details Date Type Department Care Team (Latest Contact Info) Description 05/07/2024 Travel Social History Tobacco Use Types Packs/Day [...] on file 09/01 Educational Attainment Answer Date Ojrge rded Speak language other than French at home Not on file 09/01/2023 Want [...] on filedocumented in this encounter Care Teams Card Hand Relationship Specialty Start Date End Date Edgar Fournier MD [address] [place] [address] PCP - General Family Medicine 01/17/23 06/26/24 documented as of this encounter
--- OUTSIDE RECORDS SUMMARY | 2024-07-12 12:21 | XMS_ITS | Encounter Summary ---
Author Organization [facility] In iatives Address [address] [place] [address] Care Team Providers Care Photograph Printer Name Role Phone Onesimo Garcia MD Primary Care Provider [phone] Onesimo Garcia MD Primary Care Provider [phone] Encounter Details Date Type Department Care Team (Late st Contact Info) Description 04/13/[address] [facility] [place] Family [place] [address] ProviderAmrit MD [address] [place] [address] Social History Tobacco Use Types Packs/Day [...] Note - Amrit Chan MD - 04/13/2020 1:47 PM CDT [facility] [place] [address] AIDEN ROLLINS JR :1975 Visit Time:04/13/2020 [...] at home: Medicines ??? Take or apply pxev-rbi-tfabnbf and prescription medicines only as told by [...] cannot use soap and water, use hand heel sprayer. ? Change your bandage as told by [...] 05/09/2009 Document Revised: 03/12/2019 Document Reviewed: 03/12/2019 [employer] Patient Education ?? 2020 V[employer]. Emergency Awareness and Preventative Care STROKE is [...] Assistance with quitting is available by contacting 0-728-JAIC-NOW. This is a free resource providing counseling, [...] was given the opportunity to ask questions. Patient/Box Press Operator Name: Patient/Box Press Operator Signature: Relationship to Patient: Clinician/Hospital Box Press Operator Signature: Date: documented in this encounter Plan of Treatment Not on file documented as of this encounter Visit Diagnoses Not on filedocumented in this encounter Care Teams Photograph Printer Relationship Specialty Start Date End Date Onesimo Garcia MD [address] [place] [address] PCP - General Family Medicine 01/17/23 06/26/24 Onesimo Garcia MD [address] [place] [address] PCP - General Family Medicine 06/27/24 documented as of this encounter
--- OUTSIDE RECORDS SUMMARY | 2024-07-12 12:21 | XMS_ITS | Encounter Summary ---
Author Organization [facility] In iatives Address [address] [place] [address] Care Team Providers Care Riverine Assault Craft Crewman Name Role Phone Edgar Fournier MD Primary Care Provider [phone] Encounter Details Date Type Department Care Team (Latest Contact Info) Description 01/17/2023 Travel Social History Tobacco Use Types Packs/Day Years Used Date Smoking Tobacco: Never Assessed Sex and Gender Information Value Date Recorded Sex Assigned at Male 02/08/2022 8:44 PM CDT Legal Sex Male 8:44 PM CDT Gender Identity Male 02/08/2022 8:44 PM CDT Sexual Orientation Not on file COVID-19 Exposure Response Date Recorded In the last 10 days, have yo u been in contact with someone who was confirmed or suspected to have Coronavirus/COVID-19? No / Unsure 01/17/2023 7:16 AM EDT documented as of this encounter Plan of Treatment Not on file documented as of this encounter Visit Diagnoses Not on filedocumented in this encounter Care Teams Riverine Assault Craft Crewman Relationship Specialty Start Date End Date Edgar Fournier MD [address] [place] [address] PCP - General Family Medicine 01/17/23 06/26/24 documented as of this encounter
--- OUTSIDE RECORDS SUMMARY | 2024-07-12 12:21 | XMS_ITS | Encounter Summary ---
Author Organization [facility] In iatives Address [address] [place] [address] Care Team Providers Care Escrow Closer Name Role Phone Edgar Fournier MD Primary Care Provider [phone] Reason for Referral * Interventional Radiology (Routine) - Closed Specialty Diagnoses / Procedures Referred By Declan hines Referred To Contact Radiology Diagnoses End stage renal disease (HCC) Procedures IR CENTRAL VENOUS Man Sky MD [address] [place] [address] Phone: tel: fax: Referral ID Status Reason Start Date Expiration Date Visits Re quested Visits Authorized [id number] Closed 01/12/2023 07/11/2023 1 1 Reason for Visit * Interventional Radiology (Routine) - Closed Specialty Diagnoses / Procedures Referred By Declan hines Referred To Contact Radiology Diagnoses End stage renal disease (HCC) Procedures IR CENTRAL VENOUS Man Sky MD [address] [place] [address] [place] [address] Phone: tel: fax: Referral ID Status Reason Start Date Expiration Date Visits Re quested Visits Authorized [id number] Closed 01/12/2023 07/11/2023 1 1 Encounter Details Date Type Department Care Team (Late st Contact Info) Description 01/17/2023 7:16 AM EDT - 01/17/2023 11:59 PM EDT Hospital Encounter [facility] Interventional Radiology Lab [address] [place] [address] Man Sky MD [address] [facility] [address] [place], [place] [id number] Rohith Hogue MD [address] [facility] [address] [place], [place] [id number] End stage renal disease (HCC) Discharge Disposition: [...] AM EDT documented as of this encounter Last Filed Vital Signs Vital Sign Reading Time Taken Comments Blood Pressure 154/82 01/17/2023 9:15 AM EDT Pulse 78 01/17/2023 9:10 AM EDT Temperature - - Respiratory Rate - - Oxygen Saturation 97% 01/17/2023 9:10 AM EDT Inhaled Oxygen Concentration - - Weight - - Height - - Body Mass Index - - documented in this encounter Discharge Instructions * Attachments The following attachments cannot be sent through Care Everywhere. * Wound Care Adult (Paraguayan) documented in this encounter Medications at Time of Discharge Lokelma 10 gram pwpk Take 1 packet (10 g total) by mouth. 12/06/2022 06/28/2024 temazepam (RestoriL) 15 mg capsule Take by mouth. 01/10/2023 05/07/2024 documented as of this encounter Progress Notes * Korin Alicia RN - 01/17/2023 9:00 AM EDT 0845 patient returned after having catheter removed, no s/s of bleeding or hematoma noted. Patient held for bedrest and walked to car with out complications. documented in this encounter Procedure Notes * Maile Wright PA-C - 01/17/2023 9:00 AM EDTSummary: Catheter removal Pre-Op Diagnosis: ESRD Post-Op Diagnosis: Same Procedure Performed: Catheter removal Procedural PA: Maile Wright PA-C Supervising Radiologist: Rohith Hogue MD Sedation: None Findings: Catheter removed Complications: No immediate complications EBL: Trace/ not significant Specimen(s) removed: Other Full report to follow. Cosigned by Rohith Hogue MD at 01/21/2023 1:26 PM EDT documented in this encounter Plan of Treatment Not on file documented as of this encounter Procedures Procedure Name Priority Date/Time Associated Diagnosis Comments IR CENTRAL VENOUS Routine 01/17/2023 8:4 0 AM EDT End stage renal disease (HCC) documented in this encounter Results * IR CENTRAL VENOUS (01/17/2023 8:40 AM EDT) Anatomical Region Laterality Modality Interventional R adiology 01/17/2023 10:3 6 AM EDT Impressions 01/17/2023 10:46 AM EDT Status post implanted venous catheter removal, without complication. Images reviewed, interpreted, and dictated by Dr. Rohith Hogue. Transcribed by Maile Wright PA-C. Narrative 01/17/2023 10:46 AM EDT REMOVAL OF RIGHT IJ TUNNELED DEEP LINE CATHETER HISTORY: End stage renal disease ATTENDING PHYSICIAN: Dr. Hogue PHYSICIAN FILM SOUND ENGINEER: Maile Wright PA-C PROCEDURE: After informed consent was obtained, [...] renal disease ATTENDING PHYSICIAN: Dr. Hogue PHYSICIAN FILM SOUND ENGINEER: Maile Wright PA-C PROCEDURE: After informed consent was obtained, [...] by Dr. Rohith Hogue. Transcribed by Maile Wright PA-C. us Man Sky MD IMG IR ORDERABLES Final Res ult documented in this encounter Visit Diagnoses Diagnosis End stage renal disease (HCC) End stage renal disease documented in this encounter Care Teams Escrow Closer Relationship Specialty Start Date End Date Edgar Fournier MD [address] [place] [address] PCP - General Family Medicine 01/17/23 06/26/24 documented as of this encounter
--- OUTSIDE RECORDS SUMMARY | 2024-07-12 12:21 | XMS_ITS | Encounter Summary ---
Author Organization [facility] In iatives Address [address] [place] [address] Care Team Providers Care Greens Keeper Name Role Phone Edgar Fournier MD Primary Care Provider [phone] Edgar Fournier MD Primary Care Provider [phone] Encounter Details Date Type Department Care Team (Late st Contact Info) Description 04/13/2020 Transcribed Document [facility] [place] [address] ProviderAmrit MD [address] [place] [id number] Social History Tobacco Use Types Packs/Day Years Used Date Smoking Tobacco: Never Assessed Sex and Gender Information Value Date Recorded Sex Assigned at Male 02/08/2022 8:44 PM CDT Legal Sex Male 8:44 PM CDT Gender Identity Male 02/08/2022 8:44 PM CDT Sexual Orientation Not on file documented as of this encounter Miscellaneous Notes * Cerner Conversion Note - Amrit ProviderMD - 04/13/2020 1:12 PM CDT Patient: AIDEN ROLLINS JR Age: 45 years Sex: Male : 1975 Associated Diagnoses: None Author: MARY CHAO PA Pre-OP/Procedure Diagnosis: Renal Failure. Indication: Request for catheter removal. Catheter no longer needed Procedure Performed: Dialysis catheter removal Procedural MD: Dr. Ramirez Foreign Correspondent: Mary Chao PA-C; Maile Connolly PA-C Sedation: None Findings: Successful removal of dialysis catheter Complications: None EBL: Minimal Specimen(s) Removed: None Full report to follow. documented in this encounter Plan of Treatment Not on file documented as of this encounter Visit Diagnoses Not on filedocumented in this encounter Care Teams Greens Keeper Relationship Specialty Start Date End Date Edgar Fournier MD [address] [place] [address] PCP - General Family Medicine 01/17/23 06/26/24 Edgar Fournier MD [address] [place] [address] PCP - General Family Medicine 06/27/24 documented as of this encounter
--- OUTSIDE RECORDS SUMMARY | 2024-07-12 12:21 | XMS_ITS | Encounter Summary ---
Author Organization [facility] In iatives Address [address] [place] [address] Care Team Providers Care Pull Over Name Role Phone Onesimo Garcia MD Primary Care Provider [phone] Onesimo Garcia MD Primary Care Provider [phone] Encounter Details Date Type Department Care Team (Late st Contact Info) Description 04/13/2020 Transcribed Document [facility] [place] Family Medicine [facility] [place] [address] ProviderAmrit MD [address] [place] [address] Social History Tobacco Use Types Packs/Day [...] Note - Amrit Chan MD - 04/13/2020 1:52 PM CDT [facility] [address] AIDEN ROLLINS JR :1975 Visit Time:04/13/2020 [...] at home: Medicines ??? Take or apply rshv-jvz-corwguh and prescription medicines only as told by [...] cannot use soap and water, use hand compliance technician. ? Change your bandage as told by [...] 05/09/2009 Document Revised: 03/12/2019 Document Reviewed: 03/12/2019 Else[employer]ap[employer] Patient Education ?? 2020 Widbook. Emergency Awareness and Preventative Care STROKE is [...] Assistance with quitting is available by contacting 0-162-HCCI-NOW. This is a free resource providing counseling, [...] was given the opportunity to ask questions. Patient/Erco Machine Operator Name: Patient/Erco Machine Operator Signature: Relationship to Patient: Clinician/Hospital Erco Machine Operator Signature: Date: documented in this encounter Plan of Treatment Not on file documented as of this encounter Visit Diagnoses Not on filedocumented in this encounter Care Teams Pull Over Relationship Specialty Start Date End Date Onesimo Garcia MD [address] [place] [address] PCP - General Family Medicine 01/17/23 06/26/24 Onesimo Garcia MD [address] [place] [address] PCP - General Family Medicine 06/27/24 documented as of this encounter
--- OUTSIDE RECORDS SUMMARY | 2024-07-12 12:21 | XMS_ITS | Encounter Summary ---
Author Organization [facility] Init iatives Address [address] [place] [address] Care Team Providers Care Leadership Recruiter Name Role Phone Edgar Fournier MD Primary Care Provider [phone] Encounter Details Date Type Department Care Team (Latest Contact Info) Description 05/14/2024 Travel Social History Tobacco Use Types Packs/Day Years Used Date Smoking Tobacco: Never Smokeless Tobacco: Never Alcohol Use Standard Drinks/Week Comments Not Currently 0 (1 standard drink = 0.6 oz pur e alcohol) Utilities Answer Date Recorded In the past 12 months, has t he electric, gas, oil, or water company threatened to shut off services in your home? No 05/15/2024 Interpersonal Safety Answer Date Record ed How often does anyone, claudette roberts family and friends, physically hurt you? Never 05/15/2024 How often does anyone, claudette roberts family and friends, insult or talk down to you? Never 05/15/2024 How often does anyone, claudette roberts family and friends, threaten you with harm? Never 05/15/2024 How often does anyone, claudtete roberts family and friends, scream or curse at you? Never 05/15/2024 Housing Stability Answer Date Recorded What is your living situation today? I have a st van[place] place to live 05/15/[address] you li ve. Do you have problems with any of the following? None of the above 05/15/2024 Food Insecurity Answer Date Recorded Within the past 12 months, y ou worried that your food would run out before you got money to buy more. Never true 05/15/2024 Within the past 12 months, t he food you bought just didn't last and you didn't have money to get more. Never true 05/15/2024 Transportation Needs Answer Date Record ed In the past 12 months, has l ack of reliable transportation kept you from medical appointments, meetings, work or from getting things needed for daily living? No 05/15/2024 Financial Resource Strain Answer Date R ecorded How hard is it for you to pa y for the very basics like food, housing, medical care, and heating? Would you say it is: Not hard at all 05/15/2024 Employment Answer Date Recorded Do you want help finding or keeping work or a job? I do not need or want help 05/15/2024 Family and Community Support Answer Gilbert e Recorded If for any reason you need h elp with day-to-day activities such as bathing, preparing meals, shopping, managing finances, etc., do you get the help you need? I get all the help I need 05/15/2024 Feeling Lonely or Isolated 0 05/15 Educational Attainment Answer Date Jorge rded Do you speak a language other than Kosovan at [facility]? No 05/15/2024 Do you want help with school or training? For example, starting or completing job training or getting a high school diploma, GED or equivalent. No 05/15/2024 Physical Activity Answer Date Recorded Number of minutes of exercise per week 120 05/15/2024 Alcohol Use Answer Date Recorded 5 or More Drinks Per Day Past 12 Months 0 05/15/2024 Depression Answer Date Recorded Calculation of above two rows 0 Stress Answer Date Recorded Stress means a situation in which a person feels tense, restless, nervous, or anxious, or is unable to sleep at night because his or her mind is troubled all the time. Do you feel this kind of stress these days? Not at all 05/15/2024 Disabilities Answer Date Recorded Because of a physical, menta l, or emotional condition, do you have serious difficulty concentrating, remembering, or making decisions? (5 years or older) No 05/15/2024 Because of a physical, menta l, or emotional condition, do you have difficulty doing errands alone such as visiting a doctor's office or shopping? (15 years or older) No 05/15/2024 Substance Use Answer Date Recorded How many times in the past y ear have you used prescription drugs for non-medical reasons? Never 05/15/2024 How many times in the past year have you used il legal drugs? Never 05/15/2024 Sex and Gender Information Value Date Recorded Sex Assigned at Male 02/08/2022 8:44 PM CDT Legal Sex Male 8:44 PM CDT Gender Identity Male 02/08/2022 8:44 PM CDT Sexual Orientation Not on file documented as of this encounter Plan of Treatment Not on file documented as of this encounter Visit Diagnoses Not on filedocumented in this encounter Care Teams Leadership Recruiter Relationship Specialty Start Date End Date Edgar Fournier MD [address] [place] [address] PCP - General Family Medicine 01/17/23 06/26/24 documented as of this encounter
--- OUTSIDE RECORDS SUMMARY | 2024-07-12 12:21 | XMS_ITS | Encounter Summary ---
Author Organization [facility] In iatives Address [address] [place] [address] Care Team Providers Care Charging Plug Placer Name Role Phone Edgar Fournier MD Primary Care Provider [phone] Edgar Fournier MD Primary Care Provider [phone] Encounter Details Date Type Department Care Team (Late st Contact Info) Description 04/13/2020 Transcribed Document [facility] [place] [address] ProviderAmrit MD [address] [place] [address] Social History Tobacco Use Types Packs/Day Years Used Date Smoking Tobacco: Never Assessed Sex and Gender Information Value Date Recorded Sex Assigned at Male 02/08/2022 8:44 PM CDT Legal Sex Male 8:44 PM CDT Gender Identity Male 02/08/2022 8:44 PM CDT Sexual Orientation Not on file documented as of this encounter Miscellaneous Notes * Cerner Conversion Note - Amrit ProviderMD - 04/13/2020 1:53 PM CDT Nursing Discharge Summary Entered On: 04/13/2020 13:54 EDT Performed On: 04/13/2020 13:53 EDT by ALMA DELIA CASANOVA monotyper Documentation Discharge Date/Time : 04/13/2020 14:00 EDT Patient Disposition, General : Discharge Discharge To : Home with ambulatory/outpatient follow-up Mode Of Departure, General Discharge : Private vehicle, Wheelchair Accompanied By, Discharge : Spouse IV Discontinued : Yes Personal Belongings With Patient : Yes Prescriptions Given to Patient : No Discharge Instructions Reviewed With, Opportunity For Questions Given : Patient, Spouse Patient Education Completed : Yes Teaching Method : Demonstration, Explanation Teaching Evaluation : Returns demonstration, Verbalizes understanding ALMA DELIA CASANOVA RN - 04/13/2020 13:53 EDT Electronically signed by [facility] Conversion Administration Physician Cerner at 12/04/2022 5:08 PM CDT documented in this encounter Plan of Treatment Not on file documented as of this encounter Visit Diagnoses Not on filedocumented in this encounter Care Teams Charging Plug Placer Relationship Specialty Start Date End Date Edgar Fournier MD [address] [place] [address] PCP - General Family Medicine 01/17/23 06/26/24 Edgar Fournier MD [address] [place] [address] PCP - General Family Medicine 06/27/24 documented as of this encounter
--- OUTSIDE RECORDS SUMMARY | 2024-07-12 12:21 | XMS_ITS | Encounter Summary ---
Author Organization [facility] [employer] Address [address] [place] [address] Care Team Providers Care Pipe And Tank Fabricator Name Role Phone Edgar Fournier MD Primary Care Provider [phone] Reason for Visit * Reason Comments Vascular Access Problem * Auth/Cert (Routine) Specialty Diagnoses / Procedures Referred By Declan hines Referred To Contact Diagnoses Pain [facility] [address] [place] [address] Phone: tel: fax: [facility] [address] [place] [address] Phone: tel: fax: Referral ID Status Reason Start Date Expiration Date Visits Re quested Visits Authorized [id number] 1 1 Encounter Details Date Type Department Care Team (Late st Contact Info) Description 05/14/2024 3:06 PM EDT - 05/16/2024 7:51 PM EDT Hospital Encounter [facility] Cardiac Telemetry [address] [place] [address] Marilu Arceo DO [address] [place], [place] [id number] Jay Strickland MD [address] [facility] [address] [place] [address] Hyperkalemia (Primary Dx); Metabolic acidosis; Complication associated with dialysis catheter Discharge Disposition: Left Against Medical Advice Social [...] harm? Never 05/15/2024 How often does anyone, claudette roberts family and friends, scream or curse at you? Never 05/15/2024 Housing Stability Answer Date Recorded What is your living situation today? I have a [facility] place to live 05/15/2024 Think about the [...] Do you speak a language other than Danish at ho me? No 05/15/2024 Do you want help with [...] Sign Reading Time Taken Comments Blood Pressure 133/84 05/16/2024 4:25 PM EDT Pulse 100 05/16/2024 4:25 PM EDT Temperature 36.7 ??C (98.1 ??F) 05/16/2024 4:25 PM ED T Respiratory Rate 20 05/16/2024 4:25 PM EDT Oxygen Saturation 94% 05/16/2024 4:25 PM EDT Inhaled Oxygen Concentration - - Weight 137.4 kg (302 lb 14.6 oz) 05/15/2024 9:29 AM EDT Height 175.3 cm (5' 9 ) 05/14/2024 2:49 PM EDT Body Mass Index 44.73 05/14/2024 2:49 PM EDT documented in this encounter Discharge Summaries * Jay Strickland MD - 05/16/2024 6:51 PM EDT PCP: Edgar Fournier MD Date of Admission: 05/14/2024 Date of discharge 05/16/2024 Reason for hospitalization Aiden Stauffer Jr. is a 49 y.o. male presenting with nonfunctional tunneled catheter. Patient had multiple tunnel catheters placed in the past #4 on the right side, patient has 3 catheters placedon the left IJ recently few days back which is still nonfunctional patient has returned to the ED because of above reason. Past medical history includes ESRD, DM2, hepatitis, hypertension, SAL, anemia, BMD. Has been consulted at this time. Complains of diarrhea over the last 3 days, denies any nausea, vomiting, chest pain, dysuria, fever, chills, hemoptysis, hematemesis, skin rash or any recent use of antibiotic. Patient is on home dialysis under care of Dr. Jose Daniel BRITTON at [facility]. Hyperkalemia potassium 8.0 noted. Bicarb 14. Past Medical History: He has a past medical history of Chronic kidney disease, Diabetes mellitus (HCC), Hepatitis, Hypertension, and SAL (nonalcoholic steatohepatitis). Workup in the ED identified marked hyperkalemia acidosis markedly elevated serum creatinine. In this context nephrology already seen him patient is getting his line replaced for dialysis after that he will get stat dialysis I discussed this nephrologypersonally our service was asked to admit Consultations obtained -Interventional radiology -Nephrology services -Physical and Occupational Therapy services Procedures performed -Per interventional radiology dated 05/14 Temporary dialysis catheter placement Hospital course 05/14 patient seen and examined for details see the H&P note 05/15 patient seen and evaluated resting at the time of my interaction received dialysis, now potassium normal serum creatinine trending down in good spirits nephrology on board at this time 05/16 patient seen and evaluated, nursing in the room, offers no active complaints as I walked in, give me response mostly with his thumbs up rather than direct verbal response, nephrology remains on board 05/16 addendum per nephrology patient received line Tunneled dialysis cath exchange, after the procedure I received phone call from the nursing staff that patient wants to leave AGAINST MEDICAL ADVICE, recommended that we remove temporary time nephrology on board discussed with the nurse Diagnosis -Critical hyperkalemia, now resolved postdialysis -Marked acute metabolic acidosis, now resolved -End-stage kidney disease maintained on hemodialysis now with dialysis access malfunction -Type 2 diabetes mellitus -Essential hypertension -Prior liver transplant with history of SAL Plan 05/14 patient significantly sick is being admitted to ICU settings going for dialysis line replacement per interventional radiology personally discussed with nephrology hyperkalemia treatment initiated holding all nephrotoxic meds monitor electrolytes in particular potassium level as well as CO2 levels monitor fingerstick glucose initiating sliding scale insulin coverage plan discussed with the patient discussed with the family as well 05/15 continue to follow nephrology recommendations, dialysis support per nephrology, monitor labs closely, continue other subset of home meds, plan discussed with the patient at bedside 05/16 further treatment deferred to nephrology services discharge home once okay and cleared by nephrology 05/16 addendum patient did receive Tunneled dialysis cath exchange, upon his return he is adamant hewants to leave AGAINST MEDICAL ADVICE, we recommended that temporary line should be removed discussed with the nursing Past Medical History Chronic kidney disease Diabetes mellitus (HCC) Hepatitis Hypertension SAL (nonalcoholic steatohepatitis) Past Surgical History: Procedure Laterality Date AV FISTULA PLACEMENT TRANSPLANT,LIVER Social History No tobacco, alcohol, or drug [...] (ERGOCALCIFEROL) 1,250 mcg (50,000 unit) capsule oral [id number] 1 mg-1.5 mg- 1.7 mg-50 mg tab [...] daily Xphozah 30 mg, oral Physical Exam Vitals: 05/16/24 1625 BP: 133/84 Pulse: 100 Resp: 20 Temp: 98.1 ??F (36.7 ??C) SpO2: 94% General: NAD HEENT: Generally negative Neck: No JVD noted CVS: S1, S2, no S3 or S4 Lungs: Equal air entry symmetrical chest expansion GI: Soft , audible bowel sounds Neurological: Nonfocal Musculoskeletal: Generally unremarkable Skin: Warm without any rashes Lymphatic: No obvious lymphadenopathy Labs & Imaging Recent Results (from the past 24 hour(s)) Glucose, Nova Meter Collection Time: 05/15/24 8:50 PM Result Value Ref Range POC-GLUCOSE 113 (H) 70 - 110 mg/dL Erco Machine Operator [id number] Glucose, Nova Meter Collection Time: 05/16/24 5:10 AM Result Value Ref Range POC-GLUCOSE 133 (H) 70 - 110 mg/dL Erco Machine Operator [id number] Glucose, Nova Meter Collection Time: 05/16/24 11:17 AM Result Value Ref Range POC-GLUCOSE 125 (H) 70 - 110 mg/dL Erco Machine Operator [id number] Glucose, Nova Meter Collection Time: 05/16/24 4:22 PM Result Value Ref Range POC-GLUCOSE 108 70 - 110 mg/dL Erco Machine Operator [id number] CBC - Hemogram (SJ-BKR) Collection Time: 05/16/24 6:17 PM Result Value Ref Range WBC 4.5 4.2 - 9.1 K/??L RBC 3.18 (L) 4.63 - 6.08 M/??L Hemoglobin 10.3 (L) 13.7 - 17.5 GM/DL Hematocrit 31.6 (L) 40.1 - 51.0 % MCV 99 (H) 79 - 92 fL MCH 32.4 (H) 25.7 - 32.2 pg MCHC 32.6 32.3 - 36.5 GM/DL RDW 15.0 (H) 11.6 - 14.4 % Platelets 231 140 - 375 K/CU MM MPV 9.6 9.4 - 12.4 fL Prothrombin time/INR Collection Time: 05/16/24 6:17 PM Result Value Ref Range Protime 11.8 9.0 - 12.0 seconds INR 1.08 0.80 - 1.10 IR CENTRAL VENOUS Result Date: 05/07/2024 DIALYSIS CATHETER EXCHANGE WITH SUPERIOR VENACAVOGRAM [...] cover and mask. The operative site was preppedand draped in the usual sterile manner with 2% chlorhexidine. The area was covered with a large sterile drape. A timeout procedure was performed. The skin was anesthetized 1% lidocaine using blunt and sharp dissection, the indwelling left internal jugular tunneled catheter was loosened from the underlying soft tissues. An 0.035 stiff- angled Glidewire was then inserted under fluoroscopic guidance [...] catheter. The catheter was heparinized per the office engineer's protocol. The catheter sutured in place. The patient tolerated the procedure well. 1. Superior venacavogram demonstrates large fibrin sheath. This was disrupted with a 12 mm balloon.2. Successful catheter exchange with placement of a new 27 cm Glidepath dialysis catheter. THANK YOU FOR ALLOWING US TO PARTICIPATE IN THE CARE OF YOUR PATIENT. Images reviewed, interpreted, dictatedand electronically signed by Rohith Hogue MD Voice manager corporate communications technology ([employer]) is used for the dictation of this note and sound-alike words might be erroneously placed despite reviewingthis note for accuracy. Errors in dictation may reflect use of voice recognition software and not all errors in manager corporate communications may have been detected prior to signing. IR CENTRAL VENOUS Result Date: 05/01/2024 PROCEDURE: TUNNELED CATHETER EXCHANGE 1. Fluoroscopic guided exchange of tunneled central venous catheter for hemodialysis. 2. Moderate conscious sedation. 3. Pre and post central venogram through the existing catheter with disruption of fibrin sheath through balloon angioplasty. CLINICAL INDICATION: 49-year-old male with non functioning tunneled hemodialysis catheter, presented for exchange of hemodialysis catheter. weigh tank operator: CLARK Brown Medications: IV Conscious sedation wasutilized for this procedure using 2 mg of Versed, and 100 mcg of Fentanyl. Additionally, 1% Lidocaine was used for skin and deep subcutaneous local anesthetic. Continuous cardiopulmonary/physiologic a ctivity was monitored by highly qualified health long term care social worker/nurse during the the entire procedure. IV hydralazine [...] as well as the surrounding skin was p repped and draped in the usual sterile manner. [...] catheter. The distal subtraction catheter central venogram wasperformed, which showed a fibrin sheath. The existing tunneled hemodialysis catheter was pulled back slightly releasing the cuff with gentle traction. A advantage guidewire were advanced through the existing tunneled hemodialysis catheter into the IVC. The existing catheter was removed over the wire while applying the pressure near the neck. Over the wire 6 [place] sheath was placed into the left brachiocephalic vein. Balloon angioplasty was performed for disruption of the fibular sheath utilizing 10 mm x 40 mm [place] balloon at multiple stations. The balloon was removed. The sheath was removed. New tunneled hemodialysis catheter was advanced over the wire with tip positioned within the proximal right atrium. The wire was removed. The new tunneled hemodialysis catheter was secured to the skin with 2-0 Ethilon suture. Chlorhexidine dressing was applied. Each lumen of the catheter was check ed for adequate flow. Repeat catheter central venogram [...] 32 cm Duraflow catheter. CardioMEMS device noted. Successful disruption of the fibrin sheath near the tunnel dialysis catheter tip. Successful exchange of left chest wall internal jugular approach tunneled hemodialysis catheter. Line ready to use. Critical results: No COMMUNICATION: Per this written report. Images personally reviewed, interpreted and dictated by CLARK Brown. X-ray Portable Chest Result Date: 04/27/2024 EXAM: XR PORTABLE CHEST INDICATION: Shortness of breath TECHNIQUE: 1 view of the chest. COMPARISON:11/04/2023. FINDINGS: Medical Devices: Left-sided central venous catheter tip overlies the lower SVC.. Heart and Mediastinum: Unchanged. Lungs and Pleura: Low lung volumes. Indistinct pulmonary vasculature. Perihilar and bibasilar parenchymal opacities. Left basilar parenchyma opacities. Meniscus inthe left lateral lower lung zone, may related to pleural effusion or pericardial fat pad. No pneumothorax Bones and soft tissues: No acute abnormalities. IMPRESSION: Findings of mild pulmonary edema. Report Verified by: Earnest Gonzalez DO at 04/27/2024 11:05 PM EDT IR replace dick Atif Cath without port Result Date: 04/18/2024 TUNNELED HEMODIALYSIS CATHETER EXCHANGE, SUPERIOR VENA CAVOGRAM AND FIBRIN SHEATH DISRUPTION, dated04/18/24 Indications: Aiden Stauffer Jr. is a 49 y.o. male with PMH of T2DM, ESRD on HD who was transferred from OSH malfunctioning left IJ approach TDC and found to have hyperkalemia to 6.2. Alteplasefailed to reestablish catheter patency. Operators: Odette Weston CNP, weigh tank operator Wilmer Pederson MD Supervising provider, present for fibrin sheath disruption and venogram, then immediately available thereafter. Carlton Matt, Medical Student year 4 Procedure and Findings: The patient received preprocedure IV antibiotics. The procedure was performed in the VIR suite following informed consent. The patient received IV moderate sedation under the supervision and continuous care of a radiology nurse. The patient also received 1% lidocaine with epinephrine local anesthesia. The left upperchest and existing catheter were prepped and draped in the usual sterile fashion. Heparin was aspirated from each catheter lumen prior to the procedure. There was suboptimal blood aspiration from the existing tunneled, hemodialysis catheter. The position of the existing dialysis catheter was assessed by fluoroscopy and found to be in an appropriate position. The hemodialysis catheter cuff was mobilized using blunt dissection. A 0.035 inch stiff Amplatz guidewire was passed into the catheter under fluoroscopic guidance. The catheter was withdrawn several centimeters and contrast was injected through the hemodialysis catheter. There was a fibrin sheath in the superior vena cava region. The existing hemodialysis catheter was exchanged over the guidewire for a 12 mm Mustange balloon. The balloon was inflated and the fibrin sheath was macerated and disrupted at multiple levels in the superior vena cava region. The balloon was exchanged over the guidewire for a new hemodialysis catheter under fluoroscopic guidance. The tip of the catheter was positioned in the mid-right atrium under fluoroscopic observation. A fluoroscopic image was obtained which confirmed the tip of the catheter was in the mid-right atrium. The catheter aspirated and flushed easily. Each lumen was primed with the appropriate volume of heparin 1000 units / mL. The hemodialysis catheter was sutured to the skin with 2-0 Ethilon and dressed in the usual fashion with biopatch and sterile caps in place. There were no immediate complications. Fluoroscopy time: 5.5 minutes IMPRESSION: 1. Successful exchange of a tunneled, hemodialysis catheter, 27 cm tip-to-cuff, 14.5-F,Glidepath hemodialysis catheter via the left internal jugular vein. 2. Successful balloon maceration and disruption of a fibrin sheath in the central veins, surrounding the existing hemodialysis catheter, using a 12 mm Highland balloon. Report Verified by: Odette Weston at 04/18/2024 2:47 PM EDT Patient is expected to need 2 midnights or greater length of stay due to medical issues and active medical problems mentioned above Electronically signed by: Jay Strickland MD, 05/16/2024 at 5:07 PM EDT documented in this encounter Discharge Instructions * Attachments The following attachments cannot be sent through Care Everywhere. * PICC Removal Adult Care After (Danish) documented in this encounter Medications at Time [...] 8 MG 24 hr tablet 06/28/20 24 [id number]- C-Zn 1 mg-1.5 mg- 1.7 mg-50 mg tab 06/28/20 fenofibrate (LIPOFEN) 50 mg capsule Take 50 mg by mouth. 06/28/20 gabapentin (NEURONTIN) 300 MG capsule Take by mouth. 4 06/28/20 HumuLIN N NPH Insulin KwikPen 100 unit/mL [...] (25 mg total) by mouth. 3 06/28/20 tenapanor (Xphozah) 20 mg tab Take 30 mg by mouth. 3 06/28/20 Vascepa 1 gram capsule Take 2 capsules (2 g total) by mouth 2 (two) times daily. 4 06/28/20 documented as of this encounter Progress Notes * Mark Edwards MD - 05/16/2024 4:56 PM EDT Subjective Seen and examined at bedside earlier today. Denies chest pain or shortness of breath. Pending tunneled dialysis catheter placement. Wants to go home after tunneled dialysis catheter placement. No new labs today. Temporary dialysis catheter needs to come out before he goes home. Objective Last Recorded Vitals Blood pressure 133/84, pulse 100, temperature 98.1 ??F (36.7 ??C), resp. rate 20, height 1.753 m (5' 9 ), weight (!) 137.4 kg (302 lb 14.6 oz), SpO2 94 %. Physical Exam General: Alert and oriented, well nourished, no acute distress. male neurologic: Awake, alert, and oriented X3, no focal deficit. Eye: PER.. Neck: Supple Lungs: Clear to auscultation and percussion, non-labored respiration. Heart: Normal rate, regular rhythm, no murmur, gallop. Abdomen: Morbid obesity soft, non-tender, non-distended, normal bowel sounds. Extremities: No edema cyanosis Skin: Skin is warm, dry. Psychiatric: Cooperative, appropriate mood and affect. Nontunneled dialysis catheter right groin. Tunneled dialysis catheter left IJ nonfunctional Labs: Results for orders placed or performed during the hospital encounter of 05/14/24 (from the past 24 hour(s)) Glucose, Nova Meter Status: Abnormal Collection Time: 05/15/24 8:50 PM Result Value Ref Range POC-GLUCOSE 113 (H) 70 - 110 mg/dL Erco Machine Operator [id number] Glucose, Nova Meter Status: Abnormal Collection Time: 05/16/24 5:10 AM Result Value Ref Range POC-GLUCOSE 133 (H) 70 - 110 mg/dL Erco Machine Operator [id number] Glucose, Nova Meter Status: Abnormal Collection Time: 05/16/24 11:17 AM Result Value Ref Range POC-GLUCOSE 125 (H) 70 - 110 mg/dL Erco Machine Operator [id number] Glucose, Nova Meter Status: None Collection Time: 05/16/24 4:22 PM Result Value Ref Range POC-GLUCOSE 108 70 - 110 mg/dL Erco Machine Operator [id number] IR CENTRAL VENOUS Narrative: CENTRAL LINE PLACEMENT/TEMPORARY DIALYSIS CATHETER PLACEMENT HISTORY: Vascular access problem Patient with history of renal failure, requires dialysis access. Patient had a left internal jugular approach tunneled dialysis catheter, which is malfunctioning due to frequent fibrin sheath formation. All elements of maximum sterile barrier technique were utilized including cap, mask, sterile gown, sterile gloves, a large sterile sheet, hand hygiene, and 2% chlorhexidine (or acceptable alternative) for cutaneous antisepsis. 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 PROCEDURE: The procedure, risks and benefits were explained to the patient. Written informed consent was obtained. A timeout was performed. The right neck was prepped and draped in usual sterile manner. The external jugular vein was visualized with ultrasound using a sterile probe cover and sterile gel. The patency of this vein was confirmed and documented with imaging placed in the patient's record. The skin was anesthetized with 1% Lidocaine. Under direct ultrasound guidance, access to the external jugular vein was obtained with micropuncture set. Difficulty was experienced in passing the microwire, over the microcatheter, distal subtraction angiogram showed occluded external jugular vein with multiple collateral veins in the neck. The left neck was prepped and draped in usual sterile manner. The internal jugular vein was visualized with ultrasound using a sterile probe cover and sterile gel. The patency of this vein was confirmed and documented with imaging placed in the patient's record. The skin was anesthetized with 1% Lidocaine. Under direct ultrasound guidance, access to the internal jugular vein was obtained with micropuncture set. Difficulty was experienced in passing the microwire, over the microcatheter, distal subtraction angiogram showed occluded internal jugular vein with multiple collateral veins in the neck. The right groin was prepped and draped in usual sterile manner. The common femoral vein was visualized with ultrasound using a sterile probe cover and sterile gel. The patency of this vein was confirmed and documented with imaging placed in the patient's record. The skin was anesthetized with 1% Lidocaine. Under direct ultrasound guidance, access to the common femoral vein was obtained with micropuncture set. An 0.035 Guidewire was then inserted into the inferior vena cava. The venotomy was dilated with the vessel dilator. Subsequently a 30 cm temporary dialysis catheter catheter was inserted into the. Vena cava and position under fluoroscopy. The catheter was sutured into place. The catheter was flushed. Patient tolerated the procedure well. No immediate complications. Fluoroscopy Time: 0.7 minutes. Radiation exposure in reference to Air-Kerma: 42 mGy. Dose Area Product (DAP): 1264 micoGray/m2. Number of Images: 4 images. Contrast: 10 mm of Isovue 300 Impression: Unsuccessful placement of a nontunneled central venous catheter in the right neck secondary to venous occlusion and multiple collateral veins. Unsuccessful placement of a nontunneled central venous catheter in the left neck secondary to venous occlusion and multiple collateral veins. Successful placement of a non-tunneled central venous access catheter/temporary dialysis catheter via the right common femoral vein without complications. Line is ready to use. Images personally reviewed, interpreted and dictated by CLARK Brown. Assessment 1. Severe hyperkalemia admitting potassium level 8.0. Patient will given emergent dialysis 2. Metabolic acidosis bicarb 14 at the time of admission 3. ESRD on home dialysis Recommendation: Pending tunneled dialysis catheter placement today. No need for hemodialysis today. Discussed diet with the patient High risk patient complex with multiple medical problem. Electronically signed by Mark Edwards MD - 05/16/2024 - 5:03 PM EDT * Earnest Garcia, PT - 05/16/2024 3:57 PM EDT Images from the original note were not included. Inpatient Physical Therapy Attempt to Treat Patient Name: Aiden Stauffer Jr. Birthday: 1975 Date of Attempt: 05/16/2024 Pt agitated at this time. Declines therapy evaluation and asking for AMA forms. Electronically signed by Earnest Garcia PT - 05/16/2024 - 3:57 PM EDT * Monie Rabago OTR/Mic - 05/16/2024 2:00 PM EDT Images from the original note were not included. Inpatient Occupational Therapy Attempt to Treat Patient Name: Aiden Stauffer Jr. Birthday: 1975 Date of Attempt: 05/16/2024 Pt deferred participation in therapy this date. OT will f/u tomorrow as schedule permits. Electronically signed by Monie Rabago OTR/Mic - 05/16/2024 - 3:47 PM EDT * Jay Strickland MD - 05/16/2024 9:20 AM EDT PCP: Edgar Fournier MD Date of Admission: 05/14/2024 Date of discharge 05/17/2024 Reason for hospitalization Aiden Stauffer Jr. is a 49 y.o. male presenting with nonfunctional tunneled catheter. Patient had multiple tunnel catheters placed in the past #4 on the right side, patient has 3 catheters placedon the left IJ recently few days back which is still nonfunctional patient has returned to the ED because of above reason. Past medical history includes ESRD, DM2, hepatitis, hypertension, SAL, anemia, BMD. Has been consulted at this time. Complains of diarrhea over the last 3 days, denies any nausea, vomiting, chest pain, dysuria, fever, chills, hemoptysis, hematemesis, skin rash or any recent use of antibiotic. Patient is on home dialysis under care of Dr. Jose Daniel BRITTON at [facility]. Hyperkalemia potassium 8.0 noted. Bicarb 14. Past Medical History: He has a past medical history of Chronic kidney disease, Diabetes mellitus (HCC), Hepatitis, Hypertension, and SAL (nonalcoholic steatohepatitis). Workup in the ED identified marked hyperkalemia acidosis markedly elevated serum creatinine. In this context nephrology already seen him patient is getting his line replaced for dialysis after that he will get stat dialysis I discussed this nephrologypersonally our service was asked to admit Consultations obtained -Interventional radiology -Nephrology services -Physical and Occupational Therapy services Procedures performed -Per interventional radiology dated 05/14 Temporary dialysis catheter placement Hospital course 05/14 patient seen and examined for details see the H&P note 05/15 patient seen and evaluated resting at the time of my interaction received dialysis, now potassium normal serum creatinine trending down in good spirits nephrology on board at this time 05/16 patient seen and evaluated, nursing in the room, offers no active complaints as I walked in, give me response mostly with his thumbs up rather than direct verbal response, nephrology remains on board 05/17 Diagnosis -Critical hyperkalemia, now resolved postdialysis -Marked acute metabolic acidosis, now resolved -End-stage kidney disease maintained on hemodialysis now with dialysis access malfunction -Type 2 diabetes mellitus -Essential hypertension -Prior liver transplant with history of SAL Plan 05/14 patient significantly sick is being admitted to ICU settings going for dialysis line replacement per interventional radiology personally discussed with nephrology hyperkalemia treatment initiated holding all nephrotoxic meds monitor electrolytes in particular potassium level as well as CO2 levels monitor fingerstick glucose initiating sliding scale insulin coverage plan discussed with the patient discussed with the family as well 05/15 continue to follow nephrology recommendations, dialysis support per nephrology, monitor labs closely, continue other subset of home meds, plan discussed with the patient at bedside 05/16 further treatment deferred to nephrology services discharge home once okay and cleared by nephrology 05/17 Past Medical History Chronic kidney disease Diabetes mellitus (HCC) Hepatitis Hypertension SAL (nonalcoholic steatohepatitis) Past Surgical History: Procedure Laterality Date AV FISTULA PLACEMENT TRANSPLANT,LIVER Social History No tobacco, alcohol, or drug [...] (ERGOCALCIFEROL) 1,250 mcg (50,000 unit) capsule oral [id number]-[id number] 1 mg-1.5 mg- 1.7 mg-50 mg tab [...] daily Xphozah 30 mg, oral Physical Exam Vitals: 05/16/24 0515 BP: (!) 170/97 Pulse: 94 Resp: 16 Temp: SpO2: 92% General: NAD HEENT: Generally negative Neck: No JVD noted CVS: S1, S2, no S3 or S4 Lungs: Equal air entry symmetrical chest expansion GI: Soft , audible bowel sounds Neurological: Nonfocal Musculoskeletal: Generally unremarkable Skin: Warm without any rashes Lymphatic: No obvious lymphadenopathy Labs & Imaging Recent Results (from the past 24 hour(s)) Glucose, Nova Meter Collection Time: 05/15/24 3:50 PM Result Value Ref Range POC-GLUCOSE 135 (H) 70 - 110 mg/dL Er[employer] Machine Operator [id number] Glucose, Nova Meter Collection Time: 05/15/24 8:50 PM Result Value Ref Range POC-GLUCOSE 113 (H) 70 - 110 mg/dL [employer] Machine Operator [id number] Glucose, Nova Meter Collection Time: 05/16/24 5:10 AM Result Value Ref Range POC-GLUCOSE 133 (H) 70 - 110 mg/dL [employer] Machine Operator [id number] IR CENTRAL VENOUS Result Date: 05/07/2024 DIALYSIS CATHETER EXCHANGE WITH SUPERIOR VENACAVOGRAM [...] cover and mask. The operative site was preppedand draped in the usual sterile manner with 2% chlorhexidine. The area was covered with a large sterile drape. A timeout procedure was performed. The skin was anesthetized 1% lidocaine using blunt and sharp dissection, the indwelling left internal jugular tunneled catheter was loosened from the underlying soft tissues. An 0.035 stiff- angled Glidewire was then inserted under fluoroscopic guidance [...] catheter. The catheter was heparinized per the office engineer's protocol. The catheter sutured in place. The patient tolerated the procedure well. 1. Superior venacavogram demonstrates large fibrin sheath. This was disrupted with a 12 mm balloon.2. Successful catheter exchange with placement of a new 27 cm Glidepath dialysis catheter. THANK YOU FOR ALLOWING US TO PARTICIPATE IN THE CARE OF YOUR PATIENT. Images reviewed, interpreted, dictatedand electronically signed by Rohith Hogue MD Voice manager corporate communications technology ([employer]) is used for the dictation of this note and sound-alike words might be erroneously placed despite reviewingthis note for accuracy. Errors in dictation may reflect use of voice recognition software and not all errors in manager corporate communications may have been detected prior to signing. IR CENTRAL VENOUS Result Date: 05/01/2024 PROCEDURE: TUNNELED CATHETER EXCHANGE 1. Fluoroscopic guided exchange of tunneled central venous catheter for hemodialysis. 2. Moderate conscious sedation. 3. Pre and post central venogram through the existing catheter with disruption of fibrin sheath through balloon angioplasty. CLINICAL INDICATION: 49-year-old male with non functioning tunneled hemodialysis catheter, presented for exchange of hemodialysis catheter. weigh tank operator: CLARK Brown Medications: IV Conscious sedation wasutilized for this procedure using 2 mg of Versed, and 100 mcg of Fentanyl. Additionally, 1% Lidocaine was used for skin and deep subcutaneous local anesthetic. Continuous cardiopulmonary/physiologic a ctivity was monitored by highly qualified health long term care social worker/nurse during the the entire procedure. IV hydralazine [...] as well as the surrounding skin was p repped and draped in the usual sterile manner. [...] catheter. The distal subtraction catheter central venogram wasperformed, which showed a fibrin sheath. The existing tunneled hemodialysis catheter was pulled back slightly releasing the cuff with gentle traction. A advantage guidewire were advanced through theexisting tunneled hemodialysis catheter into the IVC. The existing catheter was removed over the wire while applying the pressure near the neck. Over the wire 6 [place] sheath was placed into the leftbrachiocephalic vein. Balloon angioplasty was performed for disruption of the fibular sheath utilizing 10 mm x 40 mm [place] balloon at multiple stations. The balloon was removed. The sheath was removed. New tunneled hemodialysis catheter was advanced over the wire with tip positioned within the proximal right atrium. The wire was removed. The new tunneled hemodialysis catheter was secured to the skin with 2-0 Ethilon suture. Chlorhexidine dressing was applied. Each lumen of the catheter was chec ked for adequate flow. Repeat catheter central venogram [...] 32 cm Duraflow catheter. CardioMEMS device noted. Successful disruption of the fibrin sheath near the tunnel dialysis catheter tip. Successful exchange of left chest wall internal jugular approach tunneled hemodialysis catheter. Line ready to use. Critical results: No COMMUNICATION: Per this written report. Images personally reviewed, interpreted and dictated by CLARK Brown. X-ray Portable Chest Result Date: 04/27/2024 EXAM: XR PORTABLE CHEST INDICATION: Shortness of breath TECHNIQUE: 1 view of the chest. COMPARISON:11/04/2023. FINDINGS: Medical Devices: Left-sided central venous catheter tip overlies the lower SVC.. Heart and Mediastinum: Unchanged. Lungs and Pleura: Low lung volumes. Indistinct pulmonary vasculature. Perihilar and bibasilar parenchymal opacities. Left basilar parenchyma opacities. Meniscus inthe left lateral lower lung zone, may related to pleural effusion or pericardial fat pad. No pneumothorax Bones and soft tissues: No acute abnormalities. IMPRESSION: Findings of mild pulmonary edema. Report Verified by: Earnest Gonzalez DO at 04/27/2024 11:05 PM EDT IR replace dick Atif Cath without port Result Date: 04/18/2024 TUNNELED HEMODIALYSIS CATHETER EXCHANGE, SUPERIOR VENA CAVOGRAM AND FIBRIN SHEATH DISRUPTION, dated04/18/24 Indications: Aiden Stauffer Jr. is a 49 y.o. male with PMH of T2DM, ESRD on HD who was transferred from OSH malfunctioning left IJ approach TDC and found to have hyperkalemia to 6.2. Alteplasefailed to reestablish catheter patency. Operators: Odette Weston CNP, weigh tank operator Wilmer Pederson MD Supervising provider, present for fibrin sheath disruption and venogram, then immediately available thereafter. Carlton Matt, Medical Student year 4 Procedure and Findings: The patient received preprocedure IV antibiotics. The procedure was performed in the VIR suite following informed consent. The patient received IV moderate sedation under the supervision and continuous care of a radiology nurse. The patient also received 1% lidocaine with epinephrine local anesthesia. The left upperchest and existing catheter were prepped and draped in the usual sterile fashion. Heparin was aspirated from each catheter lumen prior to the procedure. There was suboptimal blood aspiration from the existing tunneled, hemodialysis catheter. The position of the existing dialysis catheter was assessed by fluoroscopy and found to be in an appropriate position. The hemodialysis catheter cuff was mobilized using blunt dissection. A 0.035 inch stiff Amplatz guidewire was passed into the catheter under fluoroscopic guidance. The catheter was withdrawn several centimeters and contrast was injected through the hemodialysis catheter. There was a fibrin sheath in the superior vena cava region. The existing hemodialysis catheter was exchanged over the guidewire for a 12 mm Mustange balloon. The balloon was inflated and the fibrin sheath was macerated and disrupted at multiple levels in the superior vena cava region. The balloon was exchanged over the guidewire for a new hemodialysis catheter under fluoroscopic guidance. The tip of the catheter was positioned in the mid-right atrium under fluoroscopic observation. A fluoroscopic image was obtained which confirmed the tip of the catheter was in the mid-right atrium. The catheter aspirated and flushed easily. Each lumen was primed with the appropriate volume of heparin 1000 units / mL. The hemodialysis catheter was sutured to the skin with 2-0 Ethilon and dressed in the usual fashion with biopatch and sterile caps in place. There were no immediate complications. Fluoroscopy time: 5.5 minutes IMPRESSION: 1. Successful exchange of a tunneled, hemodialysis catheter, 27 cm tip-to-cuff, 14.5-F,Glidepath hemodialysis catheter via the left internal jugular vein. 2. Successful balloon maceration and disruption of a fibrin sheath in the central veins, surrounding the existing hemodialysis catheter, using a 12 mm [place] balloon. Report Verified by: Odette Weston at 04/18/2024 2:47 PM EDT Patient is expected to need 2 midnights or greater length of stay due to medical issues and active medical problems mentioned above Electronically signed by: Jay Strickland MD, 05/16/2024 at 5:07 PM EDT * KODAK Martinez/Mic - 05/15/2024 2:11 PM EDT Images from the original note were not included. Inpatient Occupational Therapy Attempt to Treat Patient Name: Aiden Stauffer Jr. Birthday: 1975 Date of Attempt: 05/15/2024 Pt was attempted on twice today once in AM and PM. On first attempt pt wanted to eat breakfast before participating in therapy. On second attempt pt stated I've had a rough day Pt also have complaints of nausea. Pt left with all needs met at this time. Electronically signed by Rene Cotton OTR/Mic - 05/15/2024 - 2:12 PM EDT * Earnest Garcia PT - 05/15/2024 1:52 PM EDT Images from the original note were not included. Inpatient Physical Therapy Attempt to Treat Patient Name: Aiden Stauffer Jr. Birthday: 1975 Date of Attempt: 05/15/2024 Pt checked on twice this date with OT to attempt to complete evaluation but declined both times; first due to pt waiting to eat breakfast before mobilizing, second after pt had a rough day post HD.Per RN, pt may have left HD earlier than prescribed and with complaints about staff/care this date.Pt to check back as early as tomorrow to attempt to complete evaluation. Pt reports he ambulates with help from spouse at home. Electronically signed by Earnest Garcia PT - 05/15/2024 - 1:52 PM EDT * Jay Strickland MD - 05/15/2024 10:26 AM EDT PCP: Edgar Fournier MD Date of Admission: 05/14/2024 Date of discharge Reason for hospitalization Aiden Stauffer Jr. is a 49 y.o. male presenting with nonfunctional tunneled catheter. Patient had multiple tunnel catheters placed in the past #4 on the right side, patient has 3 catheters placedon the left IJ recently few days back which is still nonfunctional patient has returned to the ED because of above reason. Past medical history includes ESRD, DM2, hepatitis, hypertension, SAL, anemia, BMD. Has been consulted at this time. Complains of diarrhea over the last 3 days, denies any nausea, vomiting, chest pain, dysuria, fever, chills, hemoptysis, hematemesis, skin rash or any recent use of antibiotic. Patient is on home dialysis under care of Dr. Jose Daniel BRITTON at [facility]. Hyperkalemia potassium 8.0 noted. Bicarb 14. Past Medical History: He has a past medical history of Chronic kidney disease, Diabetes mellitus (HCC), Hepatitis, Hypertension, and SAL (nonalcoholic steatohepatitis). Workup in the ED identified marked hyperkalemia acidosis markedly elevated serum creatinine. In this context nephrology already seen him patient is getting his line replaced for dialysis after that he will get stat dialysis I discussed this nephrologypersonally our service was asked to admit Consultations obtained -Interventional radiology -Nephrology services -Physical and Occupational Therapy services Procedures performed -Per interventional radiology dated 05/14 Temporary dialysis catheter placement Hospital course 05/14 patient seen and examined for details see the H&P note 05/15 patient seen and evaluated resting at the time of my interaction received dialysis, now potassium normal serum creatinine trending down in good spirits nephrology on board at this time 05/16 Diagnosis -Critical hyperkalemia, now resolved postdialysis -Marked acute metabolic acidosis, now resolved -End-stage kidney disease maintained on hemodialysis now with dialysis access malfunction -Type 2 diabetes mellitus -Essential hypertension -Prior liver transplant with history of SAL Plan 05/14 patient significantly sick is being admitted to ICU settings going for dialysis line replacement per interventional radiology personally discussed with nephrology hyperkalemia treatment initiated holding all nephrotoxic meds monitor electrolytes in particular potassium level as well as CO2 levels monitor fingerstick glucose initiating sliding scale insulin coverage plan discussed with the patient discussed with the family as well 05/15 continue to follow nephrology recommendations, dialysis support per nephrology, monitor labs closely, continue other subset of home meds, plan discussed with the patient at bedside 05/16 05/17 Past Medical History Chronic kidney disease Diabetes mellitus (HCC) Hepatitis Hypertension SAL (nonalcoholic steatohepatitis) Past Surgical History: Procedure Laterality Date AV FISTULA PLACEMENT TRANSPLANT,LIVER Social History No tobacco, alcohol, or drug [...] (ERGOCALCIFEROL) 1,250 mcg (50,000 unit) capsule oral [id number] 1 mg-1.5 mg- 1.7 mg-50 mg tab [...] daily Xphozah 30 mg, oral Physical Exam Vitals: 05/15/24 0850 BP: (!) 153/97 Pulse: 95 Resp: Temp: 97.7 ??F (36.5 ??C) SpO2: General: NAD HEENT: Generally negative Neck: No JVD noted CVS: S1, S2, no S3 or S4 Lungs: Equal air entry symmetrical chest expansion GI: Soft , audible bowel sounds Neurological: Nonfocal Musculoskeletal: Generally unremarkable Skin: Warm without any rashes Lymphatic: No obvious lymphadenopathy Labs & Imaging Recent Results (from the past 24 hour(s)) CBC with Auto Diff Collection Time: 05/14/24 3:38 PM Result Value Ref Range WBC 6.2 4.2 - 9.1 K/??L RBC 3.00 (L) 4.63 - 6.08 M/??L Hemoglobin 9.6 (L) 13.7 - 17.5 GM/DL Hematocrit 31.5 (L) 40.1 - 51.0 % MCV 105 (H) 79 - 92 fL MCH 32.0 25.7 - 32.2 pg MCHC 30.5 (L) 32.3 - 36.5 GM/DL RDW 16.3 (H) 11.6 - 14.4 % Platelets 288 140 - 375 K/CU MM MPV 9.6 9.4 - 12.4 fL % Neutros 63 34 - 68 % % Lymphs 24 22 - 53 % % Monos 6 5 - 12 % % Eos 3 1 - 7 % % Baso 0 0 - 1 % NRBC Absolute <0.01 0 - 0.012 K/ul # Neutros 3.94 1.78 - 5.38 K/??L # Lymphs 1.51 1.32 - 3.57 K/??L # Monos 0.34 0.30 - 0.82 K/??L # Eos 0.18 0.04 - 0.54 K/??L # Baso <0.03 0.01 - 0.08 K/??L Immature Granulocytes-Relative 3.90 (H) 0.01 - 0.43 % # IG 0.24 (H) 0.00 - 0.03 K/uL Comprehensive metabolic panel Collection Time: 05/14/24 3:38 PM Result Value Ref Range Sodium 135 (L) 136 - 146 meq/L Potassium 8.0 (HH) 3.5 - 5.1 meq/L Chloride 111 102 - 112 meq/L CO2 14 (L) 21 - 32 meq/L Calcium 8.4 8.4 - 10.1 mg/dL Glucose 138 (H) 74 - 106 mg/dL BUN 93 (HH) 7 - 22 mg/dL Creatinine 15.30 (H) 0.70 - 1.30 mg/dL BUN/Creatinine 6 (L) 8 - 20 Albumin 3.4 3.4 - 5.0 g/dL Alkaline Phosphatase 258 (H) 27 - 136 U/L ALT <6 (L) 16 - 61 U/L AST 12 5 - 37 U/L Total Bilirubin 0.6 0.2 - 1.2 mg/dL Protein, Total 7.3 6.4 - 8.2 gm/dL Anion Gap 18 9 - 20 A/G Ratio 0.9 (L) 1.1 - 2.5 Globulin 3.9 1.5 - 4.5 g/dL Osmolality Calc 301.0 eGFR (mL/min/1.73m2) 3 (L) >=60 mL/min/1.73m2 Lipase Collection Time: 05/14/24 3:38 PM Result Value Ref Range Lipase 29 13 - 75 U/L Magnesium Collection Time: 05/14/24 3:38 PM Result Value Ref Range Magnesium 2.1 1.5 - 2.4 mg/dL Glucose, Nova Meter Collection Time: 05/15/24 5:50 AM Result Value Ref Range POC-GLUCOSE 117 (H) 70 - 110 mg/dL Erco Machine Operator [id number] Hepatitis panel, acute Collection Time: 05/15/24 6:23 AM Result Value Ref Range Hep A IgM Nonreactive Nonreactive, Equivocal Hep B C IgM Nonreactive Nonreactive Hepatitis B surface antigen Nonreactive Nonreactive, Equivocal Hepatitis C Ab Nonreactive Nonreactive, Equivocal CBC - Hemogram (SJ-BKR) Collection Time: 05/15/24 6:23 AM Result Value Ref Range WBC 4.1 (L) 4.2 - 9.1 K/??L RBC 2.74 (L) 4.63 - 6.08 M/??L Hemoglobin 9.2 (L) 13.7 - 17.5 GM/DL Hematocrit 28.6 (L) 40.1 - 51.0 % MCV 104 (H) 79 - 92 fL MCH 33.6 (H) 25.7 - 32.2 pg MCHC 32.2 (L) 32.3 - 36.5 GM/DL RDW 15.9 (H) 11.6 - 14.4 % Platelets 251 140 - 375 K/CU MM MPV 9.6 9.4 - 12.4 fL Basic Metabolic Panel Collection Time: 05/15/24 6:23 AM Result Value Ref Range Sodium 137 136 - 146 meq/L Potassium 3.9 3.5 - 5.1 meq/L Chloride 102 102 - 112 meq/L CO2 26 21 - 32 meq/L Anion Gap 13 9 - 20 BUN 42 (H) 7 - 22 mg/dL Creatinine 9.01 (H) 0.70 - 1.30 mg/dL BUN/Creatinine 5 (L) 8 - 20 Glucose 122 (H) 74 - 106 mg/dL Calcium 8.7 8.4 - 10.1 mg/dL Osmolality Calc 285.6 eGFR (mL/min/1.73m2) 7 (L) >=60 mL/min/1.73m2 IR CENTRAL VENOUS Result Date: 05/07/2024 DIALYSIS CATHETER EXCHANGE WITH SUPERIOR VENACAVOGRAM [...] cover and mask. The operative site was preppedand draped in the usual sterile manner with 2% chlorhexidine. The area was covered with a large sterile drape. A timeout procedure was performed. The skin was anesthetized 1% lidocaine using blunt and sharp dissection, the indwelling left internal jugular tunneled catheter was loosened from the underlying soft tissues. An 0.035 stiff- angled Glidewire was then inserted under fluoroscopic guidance [...] catheter. The catheter was heparinized per the office engineer's protocol. The catheter sutured in place. The patient tolerated the procedure well. 1. Superior venacavogram demonstrates large fibrin sheath. This was disrupted with a 12 mm balloon.2. Successful catheter exchange with placement of a new 27 cm Glidepath dialysis catheter. THANK YOU FOR ALLOWING US TO PARTICIPATE IN THE CARE OF YOUR PATIENT. Images reviewed, interpreted, dictatedand electronically signed by Rohith Hogue MD Voice manager corporate communications technology ([employer]) is used for the dictation of this note and sound-alike words might be erroneously placed despite reviewingthis note for accuracy. Errors in dictation may reflect use of voice recognition software and not all errors in manager corporate communications may have been detected prior to signing. IR CENTRAL VENOUS Result Date: 05/01/2024 PROCEDURE: TUNNELED CATHETER EXCHANGE 1. Fluoroscopic guided exchange of tunneled central venous catheter for hemodialysis. 2. Moderate conscious sedation. 3. Pre and post central venogram through the existing catheter with disruption of fibrin sheath through balloon angioplasty. CLINICAL INDICATION: 49-year-old male with non functioning tunneled hemodialysis catheter, presented for exchange of hemodialysis catheter. weigh tank operator: CLARK Brown Medications: IV Conscious sedation wasutilized for this procedure using 2 mg of Versed, and 100 mcg of Fentanyl. Additionally, 1% Lidocaine was used for skin and deep subcutaneous local anesthetic. Continuous cardiopulmonary/physiologic a ctivity was monitored by highly qualified health long term care social worker/nurse during the the entire procedure. IV hydralazine [...] as well as the surrounding skin was p repped and draped in the usual sterile manner. [...] catheter. The distal subtraction catheter central venogram wasperformed, which showed a fibrin sheath. The existing tunneled hemodialysis catheter was pulled back slightly releasing the cuff with gentle traction. A advantage guidewire were advanced through the existing tunneled hemodialysis catheter into the IVC. The existing catheter was removed over the wire while applying the pressure near the neck. Over the wire 6 [place] sheath was placed into the left brachiocephalic vein. Balloon angioplasty was performed for disruption of the fibular sheath utilizing 10 mm x 40 mm [place] balloon at multiple stations. The balloon was removed. The sheath was removed. New tunneled hemodialysis catheter was advanced over the wire with tip positioned within the proximal right atrium. The wire was removed. The new tunneled hemodialysis catheter was secured to the skin with 2-0 Ethilon suture. Chlorhexidine dressing was applied. Each lumen of the catheter was check ed for adequate flow. Repeat catheter central venogram [...] 32 cm Duraflow catheter. CardioMEMS device noted. Successful disruption of the fibrin sheath near the tunnel dialysis catheter tip. Successful exchange of left chest wall internal jugular approach tunneled hemodialysis catheter. Line ready to use. Critical results: No COMMUNICATION: Per this written report. Images personally reviewed, interpreted and dictated by CLARK Brown. X-ray Portable Chest Result Date: 04/27/2024 EXAM: XR PORTABLE CHEST INDICATION: Shortness of breath TECHNIQUE: 1 view of the chest. COMPARISON:11/04/2023. FINDINGS: Medical Devices: Left-sided central venous catheter tip overlies the lower SVC.. Heart and Mediastinum: Unchanged. Lungs and Pleura: Low lung volumes. Indistinct pulmonary vasculature. Perihilar and bibasilar parenchymal opacities. Left basilar parenchyma opacities. Meniscus inthe left lateral lower lung zone, may related to pleural effusion or pericardial fat pad. No pneumothorax Bones and soft tissues: No acute abnormalities. IMPRESSION: Findings of mild pulmonary edema. Report Verified by: Earnest Gonzalez, at 04/27/2024 11:05 PM EDT IR replace dick Atif Cath without port Result Date: 04/18/2024 TUNNELED HEMODIALYSIS CATHETER EXCHANGE, SUPERIOR VENA CAVOGRAM AND FIBRIN SHEATH DISRUPTION, dated04/18/24 Indications: Aiden Stauffer Jr. is a 49 y.o. male with PMH of T2DM, ESRD on HD who was transferred from OSH malfunctioning left IJ approach TDC and found to have hyperkalemia to 6.2. Alteplasefailed to reestablish catheter patency. Operators: Odette Weston CNP, weigh tank operator Wilmer Pederson MD Supervising provider, present for fibrin sheath disruption and venogram, then immediately available thereafter. Carlton Matt, Medical Student year 4 Procedure and Findings: The patient received preprocedure IV antibiotics. The procedure was performed in the VIR suite following informed consent. The patient received IV moderate sedation under the supervision and continuous care of a radiology nurse. The patient also received 1% lidocaine with epinephrine local anesthesia. The left upperchest and existing catheter were prepped and draped in the usual sterile fashion. Heparin was aspirated from each catheter lumen prior to the procedure. There was suboptimal blood aspiration from the existing tunneled, hemodialysis catheter. The position of the existing dialysis catheter was assessed by fluoroscopy and found to be in an appropriate position. The hemodialysis catheter cuff was mobilized using blunt dissection. A 0.035 inch stiff Amplatz guidewire was passed into the catheter under fluoroscopic guidance. The catheter was withdrawn several centimeters and contrast was injected through the hemodialysis catheter. There was a fibrin sheath in the superior vena cava region. The existing hemodialysis catheter was exchanged over the guidewire for a 12 mm Mustange balloon. The balloon was inflated and the fibrin sheath was macerated and disrupted at multiple levels in the superior vena cava region. The balloon was exchanged over the guidewire for a new hemodialysis catheter under fluoroscopic guidance. The tip of the catheter was positioned in the mid-right atrium under fluoroscopic observation. A fluoroscopic image was obtained which confirmed the tip of the catheter was in the mid-right atrium. The catheter aspirated and flushed easily. Each lumen was primed with the appropriate volume of heparin 1000 units / mL. The hemodialysis catheter was sutured to the skin with 2-0 Ethilon and dressed in the usual fashion with biopatch and sterile caps in place. There were no immediate complications. Fluoroscopy time: 5.5 minutes IMPRESSION: 1. Successful exchange of a tunneled, hemodialysis catheter, 27 cm tip-to-cuff, 14.5-F,Glidepath hemodialysis catheter via the left internal jugular vein. 2. Successful balloon maceration and disruption of a fibrin sheath in the central veins, surrounding the existing hemodialysis catheter, using a 12 mm Highland balloon. Report Verified by: Odette Weston at 04/18/2024 2:47 PM EDT Patient is expected to need 2 midnights or greater length of stay due to medical issues and active medical problems mentioned above Electronically signed by: Jay Strickland MD, 05/15/2024 at 5:07 PM EDT * Kody Wong MD - 05/15/2024 9:40 AM EDT Subjective ESRD Admitted with nonfunctional dialysis tunnel catheter Temporary femoral dialysis catheter placed on 05/14/2024, dialysis was done at that time. Dialysis in progress this morning. Review of Systems Complains of nausea, denies fever chills diarrhea constipation Objective Last Recorded Vitals Blood pressure (!) 153/97, pulse 95, temperature 97.7 ??F (36.5 ??C), resp. rate 20, height 1.753 m(5' 9 ), weight (!) 137.4 kg (303 lb), SpO2 97 %. Physical Exam General: Alert and oriented, well nourished, no acute distress. Morbidly obese male neurologic: Awake, alert, and oriented X3, no focal deficit. Eye: PER.. Neck: Supple,. Lungs: Clear to auscultation and percussion, non-labored respiration. Heart: Normal rate, regular rhythm, no murmur, gallop. Abdomen: Morbid obesity soft, non-tender, non-distended, normal bowel sounds. Extremities: No edema cyanosis Skin: Skin is warm, dry. Psychiatric: Cooperative, appropriate mood and affect. Nontunneled dialysis catheter right groin. Tunneled dialysis catheter left IJ nonfunctional Labs: Results for orders placed or performed during the hospital encounter of 05/14/24 (from the past 24 hour(s)) CBC with Auto Diff Status: Abnormal Collection Time: 05/14/24 3:38 PM Result Value Ref Range WBC 6.2 4.2 - 9.1 K/??L RBC 3.00 (L) 4.63 - 6.08 M/??L Hemoglobin 9.6 (L) 13.7 - 17.5 GM/DL Hematocrit 31.5 (L) 40.1 - 51.0 % MCV 105 (H) 79 - 92 fL MCH 32.0 25.7 - 32.2 pg MCHC 30.5 (L) 32.3 - 36.5 GM/DL RDW 16.3 (H) 11.6 - 14.4 % Platelets 288 140 - 375 K/CU MM MPV 9.6 9.4 - 12.4 fL % Neutros 63 34 - 68 % % Lymphs 24 22 - 53 % % Monos 6 5 - 12 % % Eos 3 1 - 7 % % Baso 0 0 - 1 % NRBC Absolute <0.01 0 - 0.012 K/ul # Neutros 3.94 1.78 - 5.38 K/??L # Lymphs 1.51 1.32 - 3.57 K/??L # Monos 0.34 0.30 - 0.82 K/??L # Eos 0.18 0.04 - 0.54 K/??L # Baso <0.03 0.01 - 0.08 K/??L Immature Granulocytes-Relative 3.90 (H) 0.01 - 0.43 % # IG 0.24 (H) 0.00 - 0.03 K/uL Comprehensive metabolic panel Status: Abnormal Collection Time: 05/14/24 3:38 PM Result Value Ref Range Sodium 135 (L) 136 - 146 meq/L Potassium 8.0 (HH) 3.5 - 5.1 meq/L Chloride 111 102 - 112 meq/L CO2 14 (L) 21 - 32 meq/L Calcium 8.4 8.4 - 10.1 mg/dL Glucose 138 (H) 74 - 106 mg/dL BUN 93 (HH) 7 - 22 mg/dL Creatinine 15.30 (H) 0.70 - 1.30 mg/dL BUN/Creatinine 6 (L) 8 - 20 Albumin 3.4 3.4 - 5.0 g/dL Alkaline Phosphatase 258 (H) 27 - 136 U/L ALT <6 (L) 16 - 61 U/L AST 12 5 - 37 U/L Total Bilirubin 0.6 0.2 - 1.2 mg/dL Protein, Total 7.3 6.4 - 8.2 gm/dL Anion Gap 18 9 - 20 A/G Ratio 0.9 (L) 1.1 - 2.5 Globulin 3.9 1.5 - 4.5 g/dL Osmolality Calc 301.0 eGFR (mL/min/1.73m2) 3 (L) >=60 mL/min/1.73m2 Lipase Status: Normal Collection Time: 05/14/24 3:38 PM Result Value Ref Range Lipase 29 13 - 75 U/L Magnesium Status: Normal Collection Time: 05/14/24 3:38 PM Result Value Ref Range Magnesium 2.1 1.5 - 2.4 mg/dL Glucose, Nova Meter Status: Abnormal Collection Time: 05/15/24 5:50 AM Result Value Ref Range POC-GLUCOSE 117 (H) 70 - 110 mg/dL Erco Machine Operator [id number] Hepatitis panel, acute Status: Normal Collection Time: 05/15/24 6:23 AM Result Value Ref Range Hep A IgM Nonreactive Nonreactive, Equivocal Hep B C IgM Nonreactive Nonreactive Hepatitis B surface antigen Nonreactive Nonreactive, Equivocal Hepatitis C Ab Nonreactive Nonreactive, Equivocal CBC - Hemogram (SJ-[id number]) Status: Abnormal Collection Time: 05/15/24 6:23 AM Result Value Ref Range WBC 4.1 (L) 4.2 - 9.1 K/??L RBC 2.74 (L) 4.63 - 6.08 M/??L Hemoglobin 9.2 (L) 13.7 - 17.5 GM/DL Hematocrit 28.6 (L) 40.1 - 51.0 % MCV 104 (H) 79 - 92 fL MCH 33.6 (H) 25.7 - 32.2 pg MCHC 32.2 (L) 32.3 - 36.5 GM/DL RDW 15.9 (H) 11.6 - 14.4 % Platelets 251 140 - 375 K/CU MM MPV 9.6 9.4 - 12.4 fL Basic Metabolic Panel Status: Abnormal Collection Time: 05/15/24 6:23 AM Result Value Ref Range Sodium 137 136 - 146 meq/L Potassium 3.9 3.5 - 5.1 meq/L Chloride 102 102 - 112 meq/L CO2 26 21 - 32 meq/L Anion Gap 13 9 - 20 BUN 42 (H) 7 - 22 mg/dL Creatinine 9.01 (H) 0.70 - 1.30 mg/dL BUN/Creatinine 5 (L) 8 - 20 Glucose 122 (H) 74 - 106 mg/dL Calcium 8.7 8.4 - 10.1 mg/dL Osmolality Calc 285.6 eGFR (mL/min/1.73m2) 7 (L) >=60 mL/min/1.73m2 IR CENTRAL VENOUS Narrative: CENTRAL LINE PLACEMENT/TEMPORARY DIALYSIS CATHETER PLACEMENT HISTORY: Vascular access problem Patient with history of renal failure, requires dialysis access. Patient had a left internal jugular approach tunneled dialysis catheter, which is malfunctioning due to frequent fibrin sheath formation. All elements of maximum sterile barrier technique were utilized including cap, mask, sterile gown, sterile gloves, a large sterile sheet, hand hygiene, and 2% chlorhexidine (or acceptable alternative) for cutaneous antisepsis. 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 PROCEDURE: The procedure, risks and benefits were explained to the patient. Written informed consent was obtained. A timeout was performed. The right neck was prepped and draped in usual sterile manner. The external jugular vein was visualized with ultrasound using a sterile probe cover and sterile gel. The patency of this vein was confirmed and documented with imaging placed in the patient's record. The skin was anesthetized with 1% Lidocaine. Under direct ultrasound guidance, access to the external jugular vein was obtained with micropuncture set. Difficulty was experienced in passing the microwire, over the microcatheter, distal subtraction angiogram showed occluded external jugular vein with multiple collateral veins in the neck. The left neck was prepped and draped in usual sterile manner. The internal jugular vein was visualized with ultrasound using a sterile probe cover and sterile gel. The patency of this vein was confirmed and documented with imaging placed in the patient's record. The skin was anesthetized with 1% Lidocaine. Under direct ultrasound guidance, access to the internal jugular vein was obtained with micropuncture set. Difficulty was experienced in passing the microwire, over the microcatheter, distal subtraction angiogram showed occluded internal jugular vein with multiple collateral veins in the neck. The right groin was prepped and draped in usual sterile manner. The common femoral vein was visualized with ultrasound using a sterile probe cover and sterile gel. The patency of this vein was confirmed and documented with imaging placed in the patient's record. The skin was anesthetized with 1% Lidocaine. Under direct ultrasound guidance, access to the common femoral vein was obtained with micropuncture set. An 0.035 Guidewire was then inserted into the inferior vena cava. The venotomy was dilated with the vessel dilator. Subsequently a 30 cm temporary dialysis catheter catheter was inserted into the. Vena cava and position under fluoroscopy. The catheter was sutured into place. The catheter was flushed. Patient tolerated the procedure well. No immediate complications. Fluoroscopy Time: 0.7 minutes. Radiation exposure in reference to Air-Kerma: 42 mGy. Dose Area Product (DAP): 1264 micoGray/m2. Number of Images: 4 images. Contrast: 10 mm of Isovue 300 Impression: Unsuccessful placement of a nontunneled central venous catheter in the right neck secondary to venous occlusion and multiple collateral veins. Unsuccessful placement of a nontunneled central venous catheter in the left neck secondary to venous occlusion and multiple collateral veins. Successful placement of a non-tunneled central venous access catheter/temporary dialysis catheter via the right common femoral vein without complications. Line is ready to use. Images personally reviewed, interpreted and dictated by CLARK Brown. Assessment 1. Severe hyperkalemia admitting potassium level 8.0. Patient will given emergent dialysis 2. Metabolic acidosis bicarb 14 at the time of admission 3. ESRD on home dialysis Recommendation: Dialysis in progress at this time Patient will need replacement of the tunneled catheter so he can go home. Discussed diet with the patient High risk patient complex with multiple medical problem. Prognosis guarded at this time. * Jay Strickland MD - 05/14/2024 5:38 PM EDT PCP: Edgar Fournier MD Date of Admission: 05/14/2024 Date of discharge Reason for hospitalization Aiden Stauffer Jr. is a 49 y.o. male presenting with nonfunctional tunneled catheter. Patient had multiple tunnel catheters placed in the past #4 on the right side, patient has 3 catheters placedon the left IJ recently few days back which is still nonfunctional patient has returned to the ED because of above reason. Past medical history includes ESRD, DM2, hepatitis, hypertension, SAL, anemia, BMD. Has been consulted at this time. Complains of diarrhea over the last 3 days, denies any nausea, vomiting, chest pain, dysuria, fever, chills, hemoptysis, hematemesis, skin rash or any recent use of antibiotic. Patient is on home dialysis under care of Dr. Jose Daniel BRITTON at [facility]. Hyperkalemia potassium 8.0 noted. Bicarb 14. Past Medical History: He has a past medical history of Chronic kidney disease, Diabetes mellitus (HCC), Hepatitis, Hypertension, and SAL (nonalcoholic steatohepatitis). Workup in the ED identified marked hyperkalemia acidosis markedly elevated serum creatinine. In this context nephrology already seen him patient is getting his line replaced for dialysis after that he will get stat dialysis I discussed this nephrologypersonally our service was asked to admit Consultations obtained -Interventional radiology -Nephrology services -Physical and Occupational Therapy services Procedures performed -Per interventional radiology dated 05/14 Temporary dialysis catheter placement Hospital course 05/14 patient seen and examined for details see the H&P note 05/15 05/16 Diagnosis -Critical hyperkalemia -Marked acute metabolic acidosis -End-stage kidney disease maintained on hemodialysis now with dialysis access malfunction -Type 2 diabetes mellitus -Essential hypertension -Prior liver transplant with history of SAL Plan 05/14 patient significantly sick is being admitted to ICU settings going for dialysis line replacement per interventional radiology personally discussed with nephrology hyperkalemia treatment initiated holding all nephrotoxic meds monitor electrolytes in particular potassium level as well as CO2 levels monitor fingerstick glucose initiating sliding scale insulin coverage plan discussed with the patient discussed with the family as well 05/15 05/16 05/17 Past Medical History Chronic kidney disease Diabetes mellitus (HCC) Hepatitis Hypertension SAL (nonalcoholic steatohepatitis) Past Surgical History: Procedure Laterality Date AV FISTULA PLACEMENT TRANSPLANT,LIVER Social History No tobacco, alcohol, or drug [...] (ERGOCALCIFEROL) 1,250 mcg (50,000 unit) capsule oral [id number] 1 mg-1.5 mg- 1.7 mg-50 mg tab [...] daily Xphozah 30 mg, oral Physical Exam Vitals: 05/14/24 1449 BP: (!) 151/84 Pulse: 50 Resp: 20 SpO2: 98% General: NAD HEENT: Generally negative Neck: No JVD noted CVS: S1, S2, no S3 or S4 Lungs: Equal air entry symmetrical chest expansion GI: Soft , audible bowel sounds Neurological: Nonfocal Musculoskeletal: Generally unremarkable Skin: Warm without any rashes Lymphatic: No obvious lymphadenopathy Labs & Imaging Recent Results (from the past 24 hour(s)) CBC with Auto Diff Collection Time: 05/14/24 3:38 PM Result Value Ref Range WBC 6.2 4.2 - 9.1 K/??L RBC 3.00 (L) 4.63 - 6.08 M/??L Hemoglobin 9.6 (L) 13.7 - 17.5 GM/DL Hematocrit 31.5 (L) 40.1 - 51.0 % MCV 105 (H) 79 - 92 fL MCH 32.0 25.7 - 32.2 pg MCHC 30.5 (L) 32.3 - 36.5 GM/DL RDW 16.3 (H) 11.6 - 14.4 % Platelets 288 140 - 375 K/CU MM MPV 9.6 9.4 - 12.4 fL % Neutros 63 34 - 68 % % Lymphs 24 22 - 53 % % Monos 6 5 - 12 % % Eos 3 1 - 7 % % Baso 0 0 - 1 % NRBC Absolute <0.01 0 - 0.012 K/ul # Neutros 3.94 1.78 - 5.38 K/??L # Lymphs 1.51 1.32 - 3.57 K/??L # Monos 0.34 0.30 - 0.82 K/??L # Eos 0.18 0.04 - 0.54 K/??L # Baso <0.03 0.01 - 0.08 K/??L Immature Granulocytes-Relative 3.90 (H) 0.01 - 0.43 % # IG 0.24 (H) 0.00 - 0.03 K/uL Comprehensive metabolic panel Collection Time: 05/14/24 3:38 PM Result Value Ref Range Sodium 135 (L) 136 - 146 meq/L Potassium 8.0 (HH) 3.5 - 5.1 meq/L Chloride 111 102 - 112 meq/L CO2 14 (L) 21 - 32 meq/L Calcium 8.4 8.4 - 10.1 mg/dL Glucose 138 (H) 74 - 106 mg/dL BUN 93 (HH) 7 - 22 mg/dL Creatinine 15.30 (H) 0.70 - 1.30 mg/dL BUN/Creatinine 6 (L) 8 - 20 Albumin 3.4 3.4 - 5.0 g/dL Alkaline Phosphatase 258 (H) 27 - 136 U/L ALT <6 (L) 16 - 61 U/L AST 12 5 - 37 U/L Total Bilirubin 0.6 0.2 - 1.2 mg/dL Protein, Total 7.3 6.4 - 8.2 gm/dL Anion Gap 18 9 - 20 A/G Ratio 0.9 (L) 1.1 - 2.5 Globulin 3.9 1.5 - 4.5 g/dL Osmolality Calc 301.0 eGFR (mL/min/1.73m2) 3 (L) >=60 mL/min/1.73m2 Lipase Collection Time: 05/14/24 3:38 PM Result Value Ref Range Lipase 29 13 - 75 U/L Magnesium Collection Time: 05/14/24 3:38 PM Result Value Ref Range Magnesium 2.1 1.5 - 2.4 mg/dL IR CENTRAL VENOUS Result Date: 05/07/2024 DIALYSIS CATHETER EXCHANGE WITH SUPERIOR VENACAVOGRAM [...] cover and mask. The operative site was preppedand draped in the usual sterile manner with 2% chlorhexidine. The area was covered with a large sterile drape. A timeout procedure was performed. The skin was anesthetized 1% lidocaine using blunt and sharp dissection, the indwelling left internal jugular tunneled catheter was loosened from the underlying soft tissues. An 0.035 stiff- angled Glidewire was then inserted under fluoroscopic guidance [...] catheter. The catheter was heparinized per the office engineer's protocol. The catheter sutured in place. The patient tolerated the procedure well. 1. Superior venacavogram demonstrates large fibrin sheath. This was disrupted with a 12 mm balloon.2. Successful catheter exchange with placement of a new 27 cm Glidepath dialysis catheter. THANK YOU FOR ALLOWING US TO PARTICIPATE IN THE CARE OF YOUR PATIENT. Images reviewed, interpreted, dictatedand electronically signed by Rohith Hogue MD Voice manager corporate communications technology ([employer]) is used for the dictation of this note and sound-alike words might be erroneously placed despite reviewingthis note for accuracy. Errors in dictation may reflect use of voice recognition software and not all errors in manager corporate communications may have been detected prior to signing. IR CENTRAL VENOUS Result Date: 05/01/2024 PROCEDURE: TUNNELED CATHETER EXCHANGE 1. Fluoroscopic guided exchange of tunneled central venous catheter for hemodialysis. 2. Moderate conscious sedation. 3. Pre and post central venogram through the existing catheter with disruption of fibrin sheath through balloon angioplasty. CLINICAL INDICATION: 49-year-old male with non functioning tunneled hemodialysis catheter, presented for exchange of hemodialysis catheter. weigh tank operator: CLARK Brown Medications: IV Conscious sedation wasutilized for this procedure using 2 mg of Versed, and 100 mcg of Fentanyl. Additionally, 1% Lidocaine was used for skin and deep subcutaneous local anesthetic. Continuous cardiopulmonary/physiologic a ctivity was monitored by highly qualified health long term care social worker/nurse during the the entire procedure. IV hydralazine [...] as well as the surrounding skin was p repped and draped in the usual sterile manner. [...] catheter. The distal subtraction catheter central venogram wasperformed, which showed a fibrin sheath. The existing tunneled hemodialysis catheter was pulled back slightly releasing the cuff with gentle traction. A advantage guidewire were advanced through the existing tunneled hemodialysis catheter into the IVC. The existing catheter was removed over the wire while applying the pressure near the neck. Over the wire 6 [place] sheath was placed into the left brachiocephalic vein. Balloon angioplasty was performed for disruption of the fibular sheath utilizing 10 mm x 40 mm [place] balloon at multiple stations. The balloon was removed. The sheath was removed. New tunneled hemodialysis catheter was advanced over the wire with tip positioned within the proximal right atrium. The wire was removed. The new tunneled hemodialysis catheter was secured to the skin with 2-0 Ethilon suture. Chlorhexidine dressing was applied. Each lumen of the catheter was check ed for adequate flow. Repeat catheter central venogram [...] 32 cm Duraflow catheter. CardioMEMS device noted. Successful disruption of the fibrin sheath near the tunnel dialysis catheter tip. Successful exchange of left chest wall internal jugular approach tunneled hemodialysis catheter. Line ready to use. Critical results: No COMMUNICATION: Per this written report. Images personally reviewed, interpreted and dictated by CLARK Brown. X-ray Portable Chest Result Date: 04/27/2024 EXAM: XR PORTABLE CHEST INDICATION: Shortness of breath TECHNIQUE: 1 view of the chest. COMPARISON:11/04/2023. FINDINGS: Medical Devices: Left-sided central venous catheter tip overlies the lower SVC.. Heart and Mediastinum: Unchanged. Lungs and Pleura: Low lung volumes. Indistinct pulmonary vasculature. Perihilar and bibasilar parenchymal opacities. Left basilar parenchyma opacities. Meniscus inthe left lateral lower lung zone, may related to pleural effusion or pericardial fat pad. No pneumothorax Bones and soft tissues: No acute abnormalities. IMPRESSION: Findings of mild pulmonary edema. Report Verified by: Earnest Gonzalez DO at 04/27/2024 11:05 PM EDT IR replace dick Atif Cath without port Result Date: 04/18/2024 TUNNELED HEMODIALYSIS CATHETER EXCHANGE, SUPERIOR VENA CAVOGRAM AND FIBRIN SHEATH DISRUPTION, dated04/18/24 Indications: Aiden Stauffer Jr. is a 49 y.o. male with PMH of T2DM, ESRD on HD who was transferred from OS malfunctioning left IJ approach TDC and found to have hyperkalemia to 6.2. Alteplasefailed to reestablish catheter patency. Operators: Odette Weston CNP, weigh tank operator Wilmer Pederson MD Supervising provider, present for fibrin sheath disruption and venogram, then immediately available thereafter. Carlton Matt, Medical Student year 4 Procedure and Findings: The patient received preprocedure IV antibiotics. The procedure was performed in the VIR suite following informed consent. The patient received IV moderate sedation under the supervision and continuous care of a radiology nurse. The patient also received 1% lidocaine with epinephrine local anesthesia. The left upperchest and existing catheter were prepped and draped in the usual sterile fashion. Heparin was aspirated from each catheter lumen prior to the procedure. There was suboptimal blood aspiration from the existing tunneled, hemodialysis catheter. The position of the existing dialysis catheter was assessed by fluoroscopy and found to be in an appropriate position. The hemodialysis catheter cuff was mobilized using blunt dissection. A 0.035 inch stiff Amplatz guidewire was passed into the catheter under fluoroscopic guidance. The catheter was withdrawn several centimeters and contrast was injected through the hemodialysis catheter. There was a fibrin sheath in the superior vena cava region. The existing hemodialysis catheter was exchanged over the guidewire for a 12 mm Mustange balloon. The balloon was inflated and the fibrin sheath was macerated and disrupted at multiple levels in the superior vena cava region. The balloon was exchanged over the guidewire for a new hemodialysis catheter under fluoroscopic guidance. The tip of the catheter was positioned in the mid-right atrium under fluoroscopic observation. A fluoroscopic image was obtained which confirmed the tip of the catheter was in the mid-right atrium. The catheter aspirated and flushed easily. Each lumen was primed with the appropriate volume of heparin 1000 units / mL. The hemodialysis catheter was sutured to the skin with 2-0 Ethilon and dressed in the usual fashion with biopatch and sterile caps in place. There were no immediate complications. Fluoroscopy time: 5.5 minutes IMPRESSION: 1. Successful exchange of a tunneled, hemodialysis catheter, 27 cm tip-to-cuff, 14.5-F,Glidepath hemodialysis catheter via the left internal jugular vein. 2. Successful balloon maceration and disruption of a fibrin sheath in the central veins, surrounding the existing hemodialysis catheter, using a 12 mm Highland balloon. Report Verified by: Odette Weston at 04/18/2024 2:47 PM EDT Patient is expected to need 2 midnights or greater length of stay due to medical issues and active medical problems mentioned above Electronically signed by: Jay Strickland MD, 05/14/2024 at 5:07 PM EDT documented in this encounter H&P Notes * Jay Strickland MD - 05/14/2024 5:07 PM EDT PCP: Edgar Fournier MD Date of Admission: 05/14/2024 History of present illness Aiden Stauffer Jr. is a 49 y.o. male presenting with nonfunctional tunneled catheter. Patient had multiple tunnel catheters placed in the past #4 on the right side, patient has 3 catheters placedon the left IJ recently few days back which is still nonfunctional patient has returned to the ED because of above reason. Past medical history includes ESRD, DM2, hepatitis, hypertension, SAL, anemia, BMD. Has been consulted at this time. Complains of diarrhea over the last 3 days, denies any nausea, vomiting, chest pain, dysuria, fever, chills, hemoptysis, hematemesis, skin rash or any recent use of antibiotic. Patient is on home dialysis under care of Dr. Jose Daniel BRITTON at [facility]. Hyperkalemia potassium 8.0 noted. Bicarb 14. Past Medical History: He has a past medical history of Chronic kidney disease, Diabetes mellitus (HCC), Hepatitis, Hypertension, and SAL (nonalcoholic steatohepatitis). Workup in the ED identified marked hyperkalemia acidosis markedly elevated serum creatinine. In this context nephrology already seen him patient is getting his line replaced for dialysis after that he will get stat dialysis I discussed this nephrologypersonally our service was asked to admit Review of Systems Constitutional: As per HPI. Respiratory: As per HPI. Cardiovascular: As per HPI. Gastrointestinal: As per HPI. Genitourinary: As per HPI. Past Medical History Chronic kidney disease Diabetes mellitus (HCC) Hepatitis Hypertension SAL (nonalcoholic steatohepatitis) Past Surgical History: Procedure Laterality Date AV FISTULA PLACEMENT TRANSPLANT,LIVER Social History No tobacco, alcohol, or drug [...] (ERGOCALCIFEROL) 1,250 mcg (50,000 unit) capsule oral [id number] 1 mg-1.5 mg- 1.7 mg-50 mg tab [...] daily Xphozah 30 mg, oral Physical Exam Vitals: 05/14/24 1449 BP: (!) 151/84 Pulse: 50 Resp: 20 SpO2: 98% General: NAD HEENT: Generally negative Neck: No JVD noted CVS: S1, S2, no S3 or S4 Lungs: Equal air entry symmetrical chest expansion GI: Soft , audible bowel sounds Neurological: Nonfocal Musculoskeletal: Generally unremarkable Skin: Warm without any rashes Lymphatic: No obvious lymphadenopathy Labs & Imaging Recent Results (from the past 24 hour(s)) CBC with Auto Diff Collection Time: 05/14/24 3:38 PM Result Value Ref Range WBC 6.2 4.2 - 9.1 K/??L RBC 3.00 (L) 4.63 - 6.08 M/??L Hemoglobin 9.6 (L) 13.7 - 17.5 GM/DL Hematocrit 31.5 (L) 40.1 - 51.0 % MCV 105 (H) 79 - 92 fL MCH 32.0 25.7 - 32.2 pg MCHC 30.5 (L) 32.3 - 36.5 GM/DL RDW 16.3 (H) 11.6 - 14.4 % Platelets 288 140 - 375 K/CU MM MPV 9.6 9.4 - 12.4 fL % Neutros 63 34 - 68 % % Lymphs 24 22 - 53 % % Monos 6 5 - 12 % % Eos 3 1 - 7 % % Baso 0 0 - 1 % NRBC Absolute <0.01 0 - 0.012 K/ul # Neutros 3.94 1.78 - 5.38 K/??L # Lymphs 1.51 1.32 - 3.57 K/??L # Monos 0.34 0.30 - 0.82 K/??L # Eos 0.18 0.04 - 0.54 K/??L # Baso <0.03 0.01 - 0.08 K/??L Immature Granulocytes-Relative 3.90 (H) 0.01 - 0.43 % # IG 0.24 (H) 0.00 - 0.03 K/uL Comprehensive metabolic panel Collection Time: 05/14/24 3:38 PM Result Value Ref Range Sodium 135 (L) 136 - 146 meq/L Potassium 8.0 (HH) 3.5 - 5.1 meq/L Chloride 111 102 - 112 meq/L CO2 14 (L) 21 - 32 meq/L Calcium 8.4 8.4 - 10.1 mg/dL Glucose 138 (H) 74 - 106 mg/dL BUN 93 (HH) 7 - 22 mg/dL Creatinine 15.30 (H) 0.70 - 1.30 mg/dL BUN/Creatinine 6 (L) 8 - 20 Albumin 3.4 3.4 - 5.0 g/dL Alkaline Phosphatase 258 (H) 27 - 136 U/L ALT <6 (L) 16 - 61 U/L AST 12 5 - 37 U/L Total Bilirubin 0.6 0.2 - 1.2 mg/dL Protein, Total 7.3 6.4 - 8.2 gm/dL Anion Gap 18 9 - 20 A/G Ratio 0.9 (L) 1.1 - 2.5 Globulin 3.9 1.5 - 4.5 g/dL Osmolality Calc 301.0 eGFR (mL/min/1.73m2) 3 (L) >=60 mL/min/1.73m2 Lipase Collection Time: 05/14/24 3:38 PM Result Value Ref Range Lipase 29 13 - 75 U/L Magnesium Collection Time: 05/14/24 3:38 PM Result Value Ref Range Magnesium 2.1 1.5 - 2.4 mg/dL IR CENTRAL VENOUS Result Date: 05/07/2024 DIALYSIS CATHETER EXCHANGE WITH SUPERIOR VENACAVOGRAM [...] cover and mask. The operative site was preppedand draped in the usual sterile manner with 2% chlorhexidine. The area was covered with a large sterile drape. A timeout procedure was performed. The skin was anesthetized 1% lidocaine using blunt and sharp dissection, the indwelling left internal jugular tunneled catheter was loosened from the underlying soft tissues. An 0.035 stiff- angled Glidewire was then inserted under fluoroscopic guidance [...] catheter. The catheter was heparinized per the office engineer's protocol. The catheter sutured in place. The patient tolerated the procedure well. 1. Superior venacavogram demonstrates large fibrin sheath. This was disrupted with a 12 mm balloon.2. Successful catheter exchange with placement of a new 27 cm Glidepath dialysis catheter. THANK YOU FOR ALLOWING US TO PARTICIPATE IN THE CARE OF YOUR PATIENT. Images reviewed, interpreted, dictatedand electronically signed by Rohith Hogue MD Voice manager corporate communications technology (Power Findline[employer]) is used for the dictation of this note and sound-alike words might be erroneously placed despite reviewingthis note for accuracy. Errors in dictation may reflect use of voice recognition software and not all errors in manager corporate communications may have been detected prior to signing. IR CENTRAL VENOUS Result Date: 05/01/2024 PROCEDURE: TUNNELED CATHETER EXCHANGE 1. Fluoroscopic guided exchange of tunneled central venous catheter for hemodialysis. 2. Moderate conscious sedation. 3. Pre and post central venogram through the existing catheter with disruption of fibrin sheath through balloon angioplasty. CLINICAL INDICATION: 49-year-old male with non functioning tunneled hemodialysis catheter, presented for exchange of hemodialysis catheter. weigh tank operator: CLARK Brown Medications: IV Conscious sedation wasutilized for this procedure using 2 mg of Versed, and 100 mcg of Fentanyl. Additionally, 1% Lidocaine was used for skin and deep subcutaneous local anesthetic. Continuous cardiopulmonary/physiologic a ctivity was monitored by highly qualified health long term care social worker/nurse during the the entire procedure. IV hydralazine [...] as well as the surrounding skin was p repped and draped in the usual sterile manner. [...] catheter. The distal subtraction catheter central venogram wasperformed, which showed a fibrin sheath. The existing tunneled hemodialysis catheter was pulled back slightly releasing the cuff with gentle traction. A advantage guidewire were advanced through the existing tunneled hemodialysis catheter into the IVC. The existing catheter was removed over the wire while applying the pressure near the neck. Over the wire 6 [place] sheath was placed into the left brachiocephalic vein. Balloon angioplasty was performed for disruption of the fibular sheath utilizing 10 mm x 40 mm [place] balloon at multiple stations. The balloon was removed. The sheath was removed. New tunneled hemodialysis catheter was advanced over the wire with tip positioned within the proximal right atrium. The wire was removed. The new tunneled hemodialysis catheter was secured to the skin with 2-0 Ethilon suture. Chlorhexidine dressing was applied. Each lumen of the catheter was check ed for adequate flow. Repeat catheter central venogram [...] 32 cm Duraflow catheter. CardioMEMS device noted. Successful disruption of the fibrin sheath near the tunnel dialysis catheter tip. Successful exchange of left chest wall internal jugular approach tunneled hemodialysis catheter. Line ready to use. Critical results: No COMMUNICATION: Per this written report. Images personally reviewed, interpreted and dictated by CLARK Brown. X-ray Portable Chest Result Date: 04/27/2024 EXAM: XR PORTABLE CHEST INDICATION: Shortness of breath TECHNIQUE: 1 view of the chest. COMPARISON:11/04/2023. FINDINGS: Medical Devices: Left-sided central venous catheter tip overlies the lower SVC.. Heart and Mediastinum: Unchanged. Lungs and Pleura: Low lung volumes. Indistinct pulmonary vasculature. Perihilar and bibasilar parenchymal opacities. Left basilar parenchyma opacities. Meniscus inthe left lateral lower lung zone, may related to pleural effusion or pericardial fat pad. No pneumothorax Bones and soft tissues: No acute abnormalities. IMPRESSION: Findings of mild pulmonary edema. Report Verified by: Earnest Gonzalez DO at 04/27/2024 11:05 PM EDT IR replace dick Atif Cath without port Result Date: 04/18/2024 TUNNELED HEMODIALYSIS CATHETER EXCHANGE, SUPERIOR VENA CAVOGRAM AND FIBRIN SHEATH DISRUPTION, dated04/18/24 Indications: Aiden Stauffer Jr. is a 49 y.o. male with PMH of T2DM, ESRD on HD who was transferred from [facility] malfunctioning left IJ approach TDC and found to have hyperkalemia to 6.2. Alteplasefailed to reestablish catheter patency. Operators: Odette Weston CNP, weigh tank operator Wilmer Pederson MD Supervising provider, present for fibrin sheath disruption and venogram, then immediately available thereafter. Carlton Matt, Medical Student year 4 Procedure and Findings: The patient received preprocedure IV antibiotics. The procedure was performed in the VIR suite following informed consent. The patient received IV moderate sedation under the supervision and continuous care of a radiology nurse. The patient also received 1% lidocaine with epinephrine local anesthesia. The left upperchest and existing catheter were prepped and draped in the usual sterile fashion. Heparin was aspirated from each catheter lumen prior to the procedure. There was suboptimal blood aspiration from the existing tunneled, hemodialysis catheter. The position of the existing dialysis catheter was assessed by fluoroscopy and found to be in an appropriate position. The hemodialysis catheter cuff was mobilized using blunt dissection. A 0.035 inch stiff Amplatz guidewire was passed into the catheter under fluoroscopic guidance. The catheter was withdrawn several centimeters and contrast was injected through the hemodialysis catheter. There was a fibrin sheath in the superior vena cava region. The existing hemodialysis catheter was exchanged over the guidewire for a 12 mm [place] balloon. The balloon was inflated and the fibrin sheath was macerated and disrupted at multiple levels in the superior vena cava region. The balloon was exchanged over the guidewire for a new hemodialysis catheter under fluoroscopic guidance. The tip of the catheter was positioned in the mid-right atrium under fluoroscopic observation. A fluoroscopic image was obtained which confirmed the tip of the catheter was in the mid-right atrium. The catheter aspirated and flushed easily. Each lumen was primed with the appropriate volume of heparin 1000 units / mL. The hemodialysis catheter was sutured to the skin with 2-0 Ethilon and dressed in the usual fashion with biopatch and sterile caps in place. There were no immediate complications. Fluoroscopy time: 5.5 minutes IMPRESSION: 1. Successful exchange of a tunneled, hemodialysis catheter, 27 cm tip-to-cuff, 14.5-F,Glidepath hemodialysis catheter via the left internal jugular vein. 2. Successful balloon maceration and disruption of a fibrin sheath in the central veins, surrounding the existing hemodialysis catheter, using a 12 mm [place] balloon. Report Verified by: Odette Weston at 04/18/2024 2:47 PM EDT Diagnosis -Critical hyperkalemia -Marked acute metabolic acidosis -End-stage kidney disease maintained on hemodialysis now with dialysis access malfunction -Type 2 diabetes mellitus -Essential hypertension -Prior liver transplant with history of SAL Plan 05/14 patient significantly sick is being admitted to ICU settings going for dialysis line replacement per interventional radiology personally discussed with nephrology hyperkalemia treatment initiated holding all nephrotoxic meds monitor electrolytes in particular potassium level as well as CO2 levels monitor fingerstick glucose initiating sliding scale insulin coverage plan discussed with the patient discussed with the family as well 05/15 05/16 05/17 Patient is expected to need 2 midnights or greater length of stay due to medical issues and active medical problems mentioned above Electronically signed by: Jay Strickland MD, 05/14/2024 at 5:07 PM EDT documented in this encounter Procedure Notes * Conner Ruvalcaba MD - 05/16/2024 4:08 PM EDT Pre-Op/Procedure Diagnosis: Renal failure, need for hemodialysis access Post-OP Diagnosis: Same Procedure Performed: Tunneled dialysis cath exchange Procedural Radiologist: Conner Ruvalcaba MD Loan Closer: None Sedation: 2 mg iv Versed and 100 micrograms iv Fentanyl Findings: Successful left IJ tunneled dialysis catheter exchange with fluoroscopy guidance. Successful fibrin sheath disruption with 12 mm and 14 mm balloons. DSA showed no residual fibrin sheath. Complications: No immediate complications EBL: Trace/ not significant (<5 mL). Specimen(s) Removed: None Full report to follow. * Kody Wong MD - 05/14/2024 6:28 PM EDT Dialysis notes. Notes was wrongly placed in the patient's on the same floor. Patient was seen on dialysis. I am pasting the same notes from yesterday from dialysis. Notes dialysis: Patient seen on dialysis for severe hyperkalemia. Tunneled catheter is working at this time. Ultrafiltration in progress. Examination unchanged. High risk complex patient needing dialysis emergently. Patient can be transferred to the regular floor after dialysis instead of ICU. Discussed diet again with the patient. Discussed with RN taking care of the patient. * Conner Ruvalcaba MD - 05/14/2024 5:30 PM EDT Pre-Op/Procedure Diagnosis: Renal failure Post-OP Diagnosis: Same Procedure Performed: Temporary dialysis catheter placement Procedural Radiologist: Conner Ruvalcaba MD Loan Closer: None Findings: Occluded right IJ. Occluded right EJ. Occluded left IJ. Successful right Femoral Trialysis dialysis catheter placement with ultrasound and fluoroscopy guidance. The tip is confirmed in good position and ready for use. Complications: No immediate complications EBL: Trace/ not significant (<2 mL). Full report to follow. documented in this encounter Consult Notes * Kody Wong MD - 05/14/2024 4:20 PM EDT Consults History of Present Illness: Aiden Stauffer Jr. is a 49 y.o. male presenting with nonfunctional tunneled catheter. Patient had multiple tunnel catheters placed in the past #4 on the right side, patient has 3 catheters placedon the left IJ recently few days back which is still nonfunctional patient has returned to the ED because of above reason. Past medical history includes ESRD, DM2, hepatitis, hypertension, SAL, anemia, BMD. Has been consulted at this time. Complains of diarrhea over the last 3 days, denies any nausea, vomiting, chest pain, dysuria, fever, chills, hemoptysis, hematemesis, skin rash or any recent use of antibiotic. Patient is on home dialysis under care of Dr. Jose Daniel BRITTON at [facility]. Hyperkalemia potassium 8.0 noted. Bicarb 14. Past Medical History: He has a past [...] family history is not on file. Allergies: Tacrolimus Medications: (Not in a hospital admission) Review of Systems Recorded in the HPI. Vitals: Blood pressure (!) 151/84, pulse 50, resp. rate 20, height 1.753 m (5' 9 ), weight (!) 137.4 kg (303 lb), SpO2 98 %. Physical Exam General: Morbid obesity male, alert and oriented, well nourished, no acute distress. Neurologic: Awake, alert, and oriented X3, no focal deficit. Eye: PER, EOMI, normal conjunctiva. HEENT: Facial swelling is noted normocephalic, moist oral mucosa, no scleral icterus. Neck: Supple, non-tender, no carotid bruits, no JVD, no lymphadenopathy. Lungs: Clear to auscultation and percussion, non-labored respiration. Heart: Normal rate, regular rhythm, no murmur, gallop or edema. Abdomen: Soft, non-tender, non-distended, normal bowel sounds, morbid obesity Musculoskeletal: Normal range of motion and strength, no tenderness or swelling. Skin: Skin is warm, dry, no rashes or lesions. Psychiatric: Cooperative, appropriate mood and affect. : No suprapubic fullness or tenderness. Tunneled catheter left IJ Relevant Results: Results for orders placed or performed during the hospital encounter of 05/14/24 (from the past 24 hour(s)) CBC with Auto Diff Status: Abnormal Collection Time: 05/14/24 3:38 PM Result Value Ref Range WBC 6.2 4.2 - 9.1 K/??L RBC 3.00 (L) 4.63 - 6.08 M/??L Hemoglobin 9.6 (L) 13.7 - 17.5 GM/DL Hematocrit 31.5 (L) 40.1 - 51.0 % MCV 105 (H) 79 - 92 fL MCH 32.0 25.7 - 32.2 pg MCHC 30.5 (L) 32.3 - 36.5 GM/DL RDW 16.3 (H) 11.6 - 14.4 % Platelets 288 140 - 375 K/CU MM MPV 9.6 9.4 - 12.4 fL % Neutros 63 34 - 68 % % Lymphs 24 22 - 53 % % Monos 6 5 - 12 % % Eos 3 1 - 7 % % Baso 0 0 - 1 % NRBC Absolute <0.01 0 - 0.012 K/ul # Neutros 3.94 1.78 - 5.38 K/??L # Lymphs 1.51 1.32 - 3.57 K/??L # Monos 0.34 0.30 - 0.82 K/??L # Eos 0.18 0.04 - 0.54 K/??L # Baso <0.03 0.01 - 0.08 K/??L Immature Granulocytes-Relative 3.90 (H) 0.01 - 0.43 % # IG 0.24 (H) 0.00 - 0.03 K/uL Comprehensive metabolic panel Status: Abnormal Collection Time: 05/14/24 3:38 PM Result Value Ref Range Sodium 135 (L) 136 - 146 meq/L Potassium 8.0 (HH) 3.5 - 5.1 meq/L Chloride 111 102 - 112 meq/L CO2 14 (L) 21 - 32 meq/L Calcium 8.4 8.4 - 10.1 mg/dL Glucose 138 (H) 74 - 106 mg/dL BUN 93 (HH) 7 - 22 mg/dL Creatinine 15.30 (H) 0.70 - 1.30 mg/dL BUN/Creatinine 6 (L) 8 - 20 Albumin 3.4 3.4 - 5.0 g/dL Alkaline Phosphatase 258 (H) 27 - 136 U/L ALT <6 (L) 16 - 61 U/L AST 12 5 - 37 U/L Total Bilirubin 0.6 0.2 - 1.2 mg/dL Protein, Total 7.3 6.4 - 8.2 gm/dL Anion Gap 18 9 - 20 A/G Ratio 0.9 (L) 1.1 - 2.5 Globulin 3.9 1.5 - 4.5 g/dL Osmolality Calc 301.0 eGFR (mL/min/1.73m2) 3 (L) >=60 mL/min/1.73m2 Lipase Status: Normal Collection Time: 05/14/24 3:38 PM Result Value Ref Range Lipase 29 13 - 75 U/L Magnesium Status: Normal Collection Time: 05/14/24 3:38 PM Result Value Ref Range Magnesium 2.1 1.5 - 2.4 mg/dL Assessment & Plan Active Problems: There are no active Hospital Problems. 1. Severe hyperkalemia potassium 8.0. 2. Metabolic acidosis bicarb 14 3. ESRD on home dialysis Recommendation: Stat dialysis ordered at this time. Discussed with the dialysis nurse the emergence of dialysis. Discussed with Dr. Arceo ER physician for urgent treatment of hyperkalemia. Dialysis orders written. Discussed with the patient and regards to diet, patient has been eating tomatoes which he labs. He is also not getting enough dialysis. High risk patient complex with multiple medical problem. Prognosis guarded at this time. Electronically signed by Kody Wong MD 05/14/2024 at 4:20 PM documented in this encounter ED Notes * Marilu Arceo DO - 05/14/2024 2:50 PM EDT Subjective Chief Complaint: Vascular Access Problem HPI Aiden Stauffer Jr. is a 49 y.o. male with has a past medical history of Chronic kidney disease,Diabetes mellitus (HCC), Hepatitis, Hypertension, and SAL (nonalcoholic steatohepatitis). who is presenting with vascular access problem. Patient is a left chest port that he uses for dialysis at home. Patient was able to last perform a run on Monday at a slower speed and was unable to use it yesterday due to low pressures. Patient has had this catheter replaced multiple times now. Patient also is having vomiting and diarrhea. Patient reports he had a large amount of diarrhea last night without blood. Denies abdominal pain. ROS is negative except as documented in the HPI. Patient History Past Medical History: Diagnosis Date Chronic kidney disease Diabetes mellitus (HCC) Hepatitis Hypertension SAL (nonalcoholic steatohepatitis) Past Surgical History: Procedure Laterality Date AV FISTULA PLACEMENT TRANSPLANT,LIVER History reviewed. No pertinent family history. Social History Tobacco Use Smoking status: Never Smokeless tobacco: Never Substance Use Topics Alcohol use: Not Currently I reviewed the HPI, ROS and PFSH documentation recorded by others in the medical record and supplemented my note as needed. Review of Systems Review of Systems Physical Exam Vitals: 05/15/24212905/15/24213405/15/24213605/16/24 0020 BP: (!) 145/91 134/68 Pulse: 90 100 Resp: 16 Temp: 98.1 ??F (36.7 ??C) 98.4 ??F (36.9 ??C) TempSrc: SpO2: (!) 89% 93% 92% Weight: Height: Physical Exam Neurologic Exam Ortho Exam GENERAL: Well-developed, well-nourished HEENT: Normocephalic, atraumatic. NECK: no tracheal deviation HEART: Regular rhythm, LUNGS: normal effort and good air movement. ABDOMEN: nondistended, soft, nontender EXTREMITIES: Moving all four extremities with no acute deformity or joint effusions SKIN: Warm, dry, well-perfused, no rashes NEURO: Alert, awake, oriented ED Course & MDM Medications alteplase (CATHFLO) syringe 1 mg (has no administration in time range) calcium gluconate injection 1 g (0 g intravenous Hold 05/14/241954) sodium zirconium cyclosilicate (LOKELMA) packet 10 g (10 g oral Not Given 05/14/241954) insulin regular (HUMULIN R,NOVOLIN R) injection (10 Units intravenous Not Given 05/14/241954) dextrose 50% (D50W) injection 25 g (25 g intravenous Not Given 05/14/241954) sodium bicarbonate injection 100 mEq (100 mEq intravenous Not Given 05/14/241955) sodium chloride flush 10 mL (has no administration in time range) sodium chloride flush 10 mL (has no administration in time range) albumin, human 25% (has no administration in time range) sodium chloride flush 10 mL (has no administration in time range) sodium chloride flush 10 mL (has no administration in time range) heparin injection 5,000 Units (5,000 Units subcutaneous Given 05/15/242136) acetaminophen (TYLENOL) tablet 1,000 mg (1,000 mg oral Given 05/15/24149) morphine injection 2 mg (2 mg intravenous Given 05/15/242136) naloxone (NARCAN) injection 0.2 mg (has no administration in time range) hydrALAZINE (APRESOLINE) injection 10 mg (10 mg intravenous Given 05/15/24149) ondansetron (ZOFRAN-ODT) disintegrating tablet 4 mg ( oral See Alternative 05/15/24347) Or ondansetron PF (ZOFRAN) injection 4 mg (4 mg intravenous Given 05/15/24347) melatonin tablet 3 mg (has no administration in time range) docusate sodium (COLACE) capsule 100 mg (has no administration in time range) polyethylene glycol (GLYCOLAX) packet 17 g (has no administration in time range) insulin lispro (HUMALOG, ADMELOG) injection 0-18 Units ( subcutaneous Not Given 05/15/242157) glucose chewable tablet 16 g (has no administration in time range) dextrose 50% (D50W) injection 25 g (has no administration in time range) glucagon injection 1 mg (has no administration in time range) ALPRAZolam (XANAX) tablet 0.5 mg (0.5 mg oral Given 05/15/24901) aspirin chewable tablet 81 mg (81 mg oral Given 05/15/24902) calcium carbonate (TUMS) chewable tablet 500 mg (elemental calcium 200 mg) (has no administration in time range) carvediloL (COREG) tablet 25 mg (25 mg oral Given 05/15/241641) gabapentin (NEURONTIN) capsule 300 mg (300 mg oral Not Given 05/15/242157) montelukast (SINGULAIR) tablet 10 mg (10 mg oral Given 05/15/24902) mycophenolate mofetil (CELLCEPT) capsule 250 mg (250 mg oral Given 05/15/242136) NIFEdipine (PROCARDIA-XL) 24 hr tablet 90 mg (90 mg oral Not Given 10/2/24 0901) pantoprazole (PROTONIX) EC tablet 40 mg (40 mg oral Given 05/15/24 0903) icosapent ethyL (VASCEPA) capsule 2 g (2 g oral Given 05/15/247) promethazine (PHENERGAN) 12.5 mg in sodium chloride 0.9 % (NS) 50 mL IVPB (0 mg intravenous IVPB Stopped 05/15/24 2321) cycloSPORINE (SandIMMUNE) capsule 100 mg (has no administration in time range) cycloSPORINE (SandIMMUNE) capsule 125 mg (125 mg oral Not Given 05/16/24 0000) ondansetron PF (ZOFRAN) injection 4 mg (4 mg intravenous Given 05/14/24 1535) lidocaine (PF) injection 10 mg/mL (1%) (10 mLs intradermal Given 05/14/24 1653) lidocaine (PF) injection 10 mg/mL (1%) (10 mLs intradermal Given 05/14/24 1708) lidocaine (PF) injection 10 mg/mL (1%) (10 mLs intradermal Given 05/14/24 1720) hydrOXYzine (ATARAX) tablet 25 mg (25 mg oral Given 05/15/24 1804) Results for orders placed or performed during the hospital encounter of 05/14/24 CBC with Auto Diff Result Value Ref Range WBC 6.2 4.2 - 9.1 K/??L RBC 3.00 (L) 4.63 - 6.08 M/??L Hemoglobin 9.6 (L) 13.7 - 17.5 GM/DL Hematocrit 31.5 (L) 40.1 - 51.0 % MCV 105 (H) 79 - 92 fL MCH 32.0 25.7 - 32.2 pg MCHC 30.5 (L) 32.3 - 36.5 GM/DL RDW 16.3 (H) 11.6 - 14.4 % Platelets 288 140 - 375 K/CU MM MPV 9.6 9.4 - 12.4 fL % Neutros 63 34 - 68 % % Lymphs 24 22 - 53 % % Monos 6 5 - 12 % % Eos 3 1 - 7 % % Baso 0 0 - 1 % NRBC Absolute <0.01 0 - 0.012 K/ul # Neutros 3.94 1.78 - 5.38 K/??L # Lymphs 1.51 1.32 - 3.57 K/??L # Monos 0.34 0.30 - 0.82 K/??L # Eos 0.18 0.04 - 0.54 K/??L # Baso <0.03 0.01 - 0.08 K/??L Immature Granulocytes-Relative 3.90 (H) 0.01 - 0.43 % # IG 0.24 (H) 0.00 - 0.03 K/uL Comprehensive metabolic panel Result Value Ref Range Sodium 135 (L) 136 - 146 meq/L Potassium 8.0 (HH) 3.5 - 5.1 meq/L Chloride 111 102 - 112 meq/L CO2 14 (L) 21 - 32 meq/L Calcium 8.4 8.4 - 10.1 mg/dL Glucose 138 (H) 74 - 106 mg/dL BUN 93 (HH) 7 - 22 mg/dL Creatinine 15.30 (H) 0.70 - 1.30 mg/dL BUN/Creatinine 6 (L) 8 - 20 Albumin 3.4 3.4 - 5.0 g/dL Alkaline Phosphatase 258 (H) 27 - 136 U/L ALT <6 (L) 16 - 61 U/L AST 12 5 - 37 U/L Total Bilirubin 0.6 0.2 - 1.2 mg/dL Protein, Total 7.3 6.4 - 8.2 gm/dL Anion Gap 18 9 - 20 A/G Ratio 0.9 (L) 1.1 - 2.5 Globulin 3.9 1.5 - 4.5 g/dL Osmolality Calc 301.0 eGFR (mL/min/1.73m2) 3 (L) >=60 mL/min/1.73m2 Lipase Result Value Ref Range Lipase 29 13 - 75 U/L Magnesium Result Value Ref Range Magnesium 2.1 1.5 - 2.4 mg/dL Hepatitis panel, acute Result Value Ref Range Hep A IgM Nonreactive Nonreactive, Equivocal Hep B C IgM Nonreactive Nonreactive Hepatitis B surface antigen Nonreactive Nonreactive, Equivocal Hepatitis C Ab Nonreactive Nonreactive, Equivocal CBC - Hemogram (SJ-BKR) Result Value Ref Range WBC 4.1 (L) 4.2 - 9.1 K/??L RBC 2.74 (L) 4.63 - 6.08 M/??L Hemoglobin 9.2 (L) 13.7 - 17.5 GM/DL Hematocrit 28.6 (L) 40.1 - 51.0 % MCV 104 (H) 79 - 92 fL MCH 33.6 (H) 25.7 - 32.2 pg MCHC 32.2 (L) 32.3 - 36.5 GM/DL RDW 15.9 (H) 11.6 - 14.4 % Platelets 251 140 - 375 K/CU MM MPV 9.6 9.4 - 12.4 fL Basic Metabolic Panel Result Value Ref Range Sodium 137 136 - 146 meq/L Potassium 3.9 3.5 - 5.1 meq/L Chloride 102 102 - 112 meq/L CO2 26 21 - 32 meq/L Anion Gap 13 9 - 20 BUN 42 (H) 7 - 22 mg/dL Creatinine 9.01 (H) 0.70 - 1.30 mg/dL BUN/Creatinine 5 (L) 8 - 20 Glucose 122 (H) 74 - 106 mg/dL Calcium 8.7 8.4 - 10.1 mg/dL Osmolality Calc 285.6 eGFR (mL/min/1.73m2) 7 (L) >=60 mL/min/1.73m2 Glucose, Nova Meter Result Value Ref Range POC-GLUCOSE 117 (H) 70 - 110 mg/dL Erco Machine Operator [id number] Glucose, Nova Meter Result Value Ref Range POC-GLUCOSE 135 (H) 70 - 110 mg/dL Erco Machine Operator [id number] Glucose, Nova Meter Result Value Ref Range POC-GLUCOSE 113 (H) 70 - 110 mg/dL Erco Machine Operator [id number] Glucose, Nova Meter Result Value Ref Range POC-GLUCOSE 133 (H) 70 - 110 mg/dL Erco Machine Operator [id number] IR CENTRAL VENOUS Final Result Unsuccessful placement of a nontunneled central venous catheter in the right neck secondary to venous occlusion and multiple collateral veins. Unsuccessful placement of a nontunneled central venous catheter in the left neck secondary to venous occlusion and multiple collateral veins. Successful placement of a non-tunneled central venous access catheter/temporary dialysis catheter via the right common femoral vein without complications. Line is ready to use. Images personally reviewed, interpreted and dictated by CLARK Brown. ED Course as of 05/16/24 0613 MonMay 14, 2024 1520 I assumed care of patient after initial MSE was completed. On exam patient is uncomfortable appearing. HD catheter present on left chest wall. No abdominal tenderness. [MA] [address] Sky [MA] 1546 Spoke with patient's disassembler product Dr. Sky. Also spoke with Dr. Oseguera (nephrology) in person[MA] 1625 Spoke with IR for HD catheter placement. Patient has potassium of 8.0. Ordered Lokelma and 1 gcalcium. Ordered EKG. Patient will require emergent dialysis. Attempting to contact patient's disassembler product again to arrange [MA] 1629 Spoke with nephrology in person. Recommend starting treatment with IV insulin while awaiting dialysis. [MA] 1653 Summary: ICU admission. Patient has history of ESRD and missed dialysis. Now hyperkalemic with potassium of 8, metabolic acidosis with elevated anion gap and dysfunctional HD catheter. Nephrology is down hereright now. We are providing Lokelma, insulin, bicarb, dextrose while awaiting new HD catheter whichIR is placing right now. [MA] 1700 HD catheter was placed by IR. Spoke with nephrology on the phone again regarding this patientscare. Dialysis team ready. Patient was transported to intermediate bed where he will receive emergent dialysis. [MA] 1730 I have personally provided 45 minutes of critical care time exclusive of time spent on separately billable procedures. Time includes review of laboratory data, radiology results, discussion withconsultants, and monitoring for potential decompensation. Interventions were performed as documented. [MA] ED Course User Index [MA] Marilu Arceo DO Procedures Medical Decision Making Amount and/or Complexity of Data Reviewed Labs: ordered. ECG/medicine tests: ordered. Risk OTC drugs. Prescription drug management. Decision regarding hospitalization. Patient was seen in triage for a medical screening examination. A brief history and physical examination was performed in triage to initiate a work-up. Differential diagnosis includes but is not limited to dehydration, gastroenteritis, occluded catheter, electrolyte imbalance, need for dialysis. Rest of care was provided in main ED by a provider. Please see ED course for MDM and documented critical care time. Assessment & Plan Clinical Impression Diagnosis Comment Added By Time Added Hyperkalemia Marilu Arceo DO 05/16/2024 6:10 AM Metabolic acidosis Marilu Arceo DO 05/16/2024 6:11 AM Complication associated with dialysis catheter Marilu Arceo DO 05/16/2024 6:11 AM Disposition Admit [3] - 05/14/2024 5:32 PM Current Discharge Medication List Contact information for follow-up Edgar Fournier MD Specialty: Family Medicine Relationship: PCP - [place] [id number] Next Steps: Follow up in 1 week(s) Electronically Signed By Marilu Arceo DO 05/16/24 0613 * Mandi Tamayo - 05/14/2024 2:49 PM EDT Pt states his dialysis port is clogged documented in this encounter Miscellaneous Notes * Nursing Progress Notes - Judi Crow - 05/16/2024 6:07 PM EDT Spoke to attending, and nephrology today continuously regarding patient. He has been upset since yesterday threatening to leave AMA. He stated he was going to leave with the temporary catheter. I explained policy as well as explanation. He requested pain medication to which I provided. His family is at bedside. would like stat labs for this patient. Nephrology and attending would like catheter pulled out before this patient leaves AMA. Paperwork is filled out waiting to be signed. I educated patient regarding bleeding, care for site after removal. He states he does not care he just wants to leave. Waiting for lab to come draw blood for this patient and will need the results to ensure patient safety. * Sedation Pre Note - Conner Ruvalcaba MD - 05/16/2024 2:00 PM EDT ASA Mallampati score: Immediately prior to the procedure, I performed an ASA and or Mallampati assessment. ASA 3 - Patient with moderate systemic disease with functional limitations Mallampati score: III (soft and hard palate and base of uvula visible) Conner Ruvalcaba MD 3:07 PM * Plan of Care - Judi Crow - 05/16/2024 11:25 AM EDT Problem: Compromised Skin Integrity Goal: LTG - Patient will be free from infection Outcome: Progressing Goal: LTG - Patient will maintain/improve skin integrity through proper skin care techniques Outcome: Progressing Goal: LTG - Patient will demonstrate appropriate pressure relief techniques Outcome: Progressing Goal: LTG - Patient will demonstrate appropriate skin care techniques Outcome: Progressing Goal: LTG - Patient will be free from infection Outcome: Progressing Goal: STG - Patient demonstrates skin care/treatment/dressing change Outcome: Progressing Goal: STG - Patient will maintain good skin integrity Outcome: Progressing Goal: STG - Patient exhibits signs of wound healing. Outcome: Progressing Goal: STG - Patient demonstrates pressure reduction techniques Outcome: Progressing Goal: STG - Patient demonstrates preventative skin care measures Outcome: Progressing Problem: Risk for Falls Goal: No falls during hospitalization Description: Patient will not fall during hospitalization. Outcome: Progressing Problem: Pain Goal: Patient's pain/discomfort is manageable Description: Assess and monitor patient's pain using appropriate pain scale. Collaborate with interdisciplinary team and initiate plan and interventions as ordered. Re-assess patient's pain level after pain management intervention. Outcome: Progressing * Plan of Care - Carrol Gonzalez RN - 05/15/2024 9:47 PM EDT Problem: Compromised Skin Integrity Goal: LTG - Patient will be free from infection Outcome: Progressing Goal: STG - Patient will maintain good skin integrity Outcome: Progressing Goal: STG - Patient demonstrates pressure reduction techniques Outcome: Progressing Goal: STG - Patient demonstrates preventative skin care measures Outcome: Progressing Problem: Risk for Falls Goal: No falls during hospitalization Description: Patient will not fall during hospitalization. Outcome: Progressing Problem: Pain Goal: Patient's pain/discomfort is manageable Description: Assess and monitor patient's pain using appropriate pain scale. Collaborate with interdisciplinary team and initiate plan and interventions as ordered. Re-assess patient's pain level after pain management intervention. Outcome: Progressing * Nursing Progress Notes - Judi Crow - 05/15/2024 6:43 PM EDT Patient alert oriented. He went to dialysis today which he states they treated me so awful, I no longer feel safe with this hospital . I explained these concerns with , microbiology laboratory manager Juan Alberto, dirt supervisor Sahara. Patient wanted to be discharged to go to [facility]. Patient became very upset, called his and mother expressing concerns at bedside. Sahara spoke with this patient and he was still upset. I called house because patient wanted to know the plan for his replacement catheter. supervisor pipe joints called exchange and spoke with a provider who was off duty, stating they could not dothe replacement due to his potassium. They would be able to get him in tomorrow 05/16/24 as long as a provider could put in orders for his catheter replacement with IR. And patient be NPO after midnight. I explained this to patient and family who agrees to stay for replacement. For tomorrow. * Nursing Progress Notes - Jen Rocha RN - 05/15/2024 6:00 PM EDT 05/15/24 1200 Vitals Temp 97.9 ??F (36.6 ??C) Temp src Oral Pulse 70 Resp 18 BP (!) 185/52 During Hemodialysis Assessment Hemodialysis Status Completed Ultrafiltration Status Termintated Early Prime Volume 200 Blood Flow Rate (mL/min) 400 mL/min Ultrafiltration Rate (mL/hr) 0 mL/hr (OFF) Venous Pressure (mmHg) 140 Transmembrane Pressure (mmHg) 18 mmHg Arterial Pressure (mmHg) -158 UF Goal 1500 ml UF Removed (mL) -300 ml Dialysate Flow Rate (mL/min) 750 ml/min UF State Off Blood Volume Processed 53.2 ml Arteriovenous Lines Secure Yes Post-Hemodialysis Assessment Total Blood Volume Processed 53.2 mL Duration of Treatment (minutes) 140 min Hemodialysis UF Net Intake (mL) 600 mL Hemodialysis UF Net Output (mL) -300 mL Transfer Mode (Hospital bed) Post-Hemodialysis Comments Pt stated he wanted to end tx with approx 1hr 40min left of tx. Tx endedblood returned, lines flushed with NS. NS instilled for dwell, caps placed. Report called to primary RN. MD / CN aware of tx ending, Pt refused to sign AMA. See note * Plan of Care - Judi Crow - 05/15/2024 5:55 PM EDT Problem: Compromised Skin Integrity Goal: LTG - Patient will be free from infection Outcome: Progressing Goal: LTG - Patient will maintain/improve skin integrity through proper skin care techniques Outcome: Progressing Goal: LTG - Patient will demonstrate appropriate pressure relief techniques Outcome: Progressing Goal: LTG - Patient will demonstrate appropriate skin care techniques Outcome: Progressing Goal: LTG - Patient will be free from infection Outcome: Progressing Goal: STG - Patient demonstrates skin care/treatment/dressing change Outcome: Progressing Goal: STG - Patient will maintain good skin integrity Outcome: Progressing Goal: STG - Patient exhibits signs of wound healing. Outcome: Progressing Goal: STG - Patient demonstrates pressure reduction techniques Outcome: Progressing Goal: STG - Patient demonstrates preventative skin care measures Outcome: Progressing Problem: Risk for Falls Goal: No falls during hospitalization Description: Patient will not fall during hospitalization. Outcome: Progressing Problem: Pain Goal: Patient's pain/discomfort is manageable Description: Assess and monitor patient's pain using appropriate pain scale. Collaborate with interdisciplinary team and initiate plan and interventions as ordered. Re-assess patient's pain level after pain management intervention. Outcome: Progressing * Nursing Progress Notes - Genny Hi RN - 05/15/2024 4:54 PM EDT Summary: Communication from Nephrology Spoke with Dr. Wong who states there was an order for permanent dialysis catheter to be placed byIR today. I called IR who states they have no order but can place tomorrow if order is placed and patient is NPO after midnight. Spoke with Primary RN who is contacting to have order placed for IR to be done tomorrow. * Nursing Progress Notes - Genny Hi RN - 05/15/2024 4:41 PM EDT Contacted by primary RN unable to reach disassembler product Dr. Kody Wong. Patient concerned about plan to get dialysis catheter. Paged Dr. Wong at [phone] awaiting call back. * Nursing Progress Notes - Jen Rocha RN - 05/15/2024 12:30 PM EDT Pt brought to HD this AM. HD orders are for 4hr tx. Before tx initiated pt stated he wanted Dr. Wong to prescribe something other than zofran for his nausea. Reached out to neph MD received order for Phenergan 12.5mg IV x1. Went to notify pt of order, pt resting. Approximately 1hr and 20min into tx pt c/o cramping in ABD. NS given / UF turned off. Pt stated he has 2 hernias no one understands how much they hurt, why don't they give me some dilaudid or something instead of tylenol that doesn't work . While at pt bedside pt requested for pressure to be placed on ABD where cramping was active. For approx 10min, remained at pt's bedside helping pt with abd pain. Pt stated he felt better and cramping subsided. Left pt's bedside went to check on other pt. Approx 5min later pt hit call light,this RN finished with other pt and went to answer call light, pt upset stated he hit the call lightand no one came to check on him. Pt stated this RN ignored his call light and demanded to be taken off Hd tx. Pt had 1hr 40min left of tx and stated take me off no one understands I hit the call light and you just ignored me, I am a sick pt. Just rinse me back I'm done . Notified MD and HD ChargeRN. Pt refused to sign AMA. Report called to primary RN. * Plan of Care - Carrol Gonzalez RN - 05/15/2024 6:03 AM EDT Problem: Compromised Skin Integrity Goal: LTG - Patient will be free from infection 05/15/2024602 by Carrol Gonzalez RN Outcome: Progressing 05/15/2024602 by Carrol Gonzalez RN Outcome: Progressing Goal: STG - Patient will maintain good skin integrity 05/15/2024602 by Carrol Gonzalez RN Outcome: Progressing 05/15/2024602 by Carrol Gonzalez RN Outcome: Progressing Goal: STG - Patient demonstrates pressure reduction techniques 05/15/2024602 by Carrol Gonzalez RN Outcome: Progressing 05/15/2024602 by Carrol Gonzalez RN Outcome: Progressing Goal: STG - Patient demonstrates preventative skin care measures Outcome: Progressing Problem: Risk for Falls Goal: No falls during hospitalization Description: Patient will not fall during hospitalization. Outcome: Progressing Problem: Pain Goal: Patient's pain/discomfort is manageable Description: Assess and monitor patient's pain using appropriate pain scale. Collaborate with interdisciplinary team and initiate plan and interventions as ordered. Re-assess patient's pain level after pain management intervention. Outcome: Progressing * Nursing Progress Notes - Balbina Chung RN - 05/14/2024 10:00 PM EDT 05/14/24 2130 Vitals Temp 97.6 ??F (36.4 ??C) Pulse 82 Resp 20 BP (!) 174/60 O2 Device Not on O2 Pain Assessment Pain Assessment Scale 0-10 Pain Score Zero Patient's Stated Comfort Goal No pain Hemodialysis Access Non-Tunneled Right Femoral vein Placement Date/Time: 05/14/24 1725 Inserted by: Jordon Access Type: Non- Tunneled Orientation: Right Access Location: Femoral vein Securement Method: Sutured;Taped Patient Tolerance: Tolerated well Status Deaccessed Type of Dressing CHG gel Dressing Status Clean;Dry;Intact Blue Port Capped;Clamped;Flushed Red Port Capped;Clamped;Flushed During Hemodialysis Assessment Hemodialysis Status Terminated Early (patient demanded to be taken off machine. Stated I have had all I can take....Now take me off.. AMA form signed.) Post-Hemodialysis Assessment Total Blood Volume Processed 73.5 mL Duration of Treatment (minutes) 180 min Hemodialysis UF Net Intake (mL) 500 mL Hemodialysis UF Net Output (mL) 1651 mL Hemodialysis UF Gross (mL) 2151 mL documented in this encounter Plan of Treatment Not on file documented as of this encounter Procedures Procedure Name Priority Date/Time Associated Diagnosis Comments CBC HEMOGRAM (SJ-BKR) STAT 05/16/2024 6:17 PM EDT PROTHROMBIN TIME/INR STAT 05/16/2024 6:17 PM EDT NOVA GLUCOSE POC Routine 05/16/2024 4:22 PM EDT IR TUNNELED DIALYSIS CATHETER EXCHANGE Routine 05/16/2024 4:03 PM EDT NOVA GLUCOSE POC Routine 05/16/2024 11:1 7 AM EDT NOVA GLUCOSE POC Routine 05/16/2024 5:10 AM EDT NOVA GLUCOSE POC Routine 05/15/2024 8:50 PM EDT NOVA GLUCOSE POC Routine 05/15/2024 3:50 PM EDT CBC HEMOGRAM (SJ-BKR) STAT 05/15/2024 6:23 AM EDT HEPATITIS PANEL, ACUTE STAT 6:23 AM EDT BASIC METABOLIC PANEL STAT 05/15/2024 6:23 AM EDT NOVA GLUCOSE POC Routine 05/15/2024 5:50 AM EDT IR CENTRAL VENOUS STAT 05/14/2024 5:2 7 PM EDT CBC W/ AUTO DIFF STAT 05/14/2024 3:38 PM EDT MAGNESIUM STAT 05/14/2024 3:38 PM EDT LIPASE STAT 05/14/2024 3:38 PM EDT COMPREHENSIVE METABOLIC PANEL STAT 05/14/2024 3:38 PM EDT documented in this encounter Results * Prothrombin time/INR (05/16/2024 6:17 PM EDT) Protime 11.8 9.0 - 12.0 seconds 05/16/2024 6:49 PM EDT [facility] INR 1.08 0.80 - 1.10 05/16/2024 6:49 PM EDT [facility] Comment: Recommended therapeutic ranges using International [...] MD LAB BLOOD ORDERABLES Final Resul t [facility] [address] [phone] * (ABNORMAL) CBC - Hemogram (SJ-BKR) (05/16/2024 6:17 PM EDT) WBC 4.5 4.2 - 9.1 K/??L 05/16/2024 6:33 PM EDT [facility] RBC 3.18(L) 4.63 - 6.08 M/??L 05/16/2024 6:33 PM EDT [facility] Hemoglobin 10.3(L) 13.7 - 17.5 GM/DL 05/16/2024 6:33 PM EDT [facility] Hematocrit 31.6(L) 40.1 - 51.0 % 05/16/2024 6:33 PM EDT [facility] MCV 99(H) 79 - 92 fL 05/16/2024 6:33 PM EDT [facility] MCH 32.4(H) 25.7 - 32.2 pg 05/16/2024 6:33 PM EDT [facility] MCHC 32.6 32.3 - 36.5 GM/DL 05/16/2024 6:33 PM EDT [facility] RDW 15.0(H) 11.6 - 14.4 % 05/16/2024 6:33 PM EDT [facility] Platelets 231 140 - 375 K/CU MM 05/16/2024 6:33 PM EDT [facility] MPV 9.6 9.4 - 12.4 fL 05/16/2024 6:33 PM EDT [facility] Blood Venipuncture / Unknown 05/16/2024 6:17 PM EDT 05/16/2024 6:29 PM EDT Narrative [facility] - 05/16/2024 6:33 PM EDT Note: reference ranges were changed on 09/12/2023. us Jay Strickland MD LAB BLOOD ORDERABLES Final Resul t Performing Organization Address City/State/[facility] Co de Phone Number [facility] [address] [phone] * Glucose, Nova Meter (05/16/2024 4:22 PM EDT) POC-GLUCOSE 108 70 - 110 mg/dL 05/16/2024 4:23 PM EDT [facility] Comment: In the event of poor peripheral blood flow, venous or arterial blood should be used due to the potential of erroneous results. Notified Nurse RBV Erco Machine Operator [id number] 05/16/2024 4:23 PM EDT [facility] Blood WHOLE BLOOD / Unknown 05/16/2024 4:22 PM EDT 05/16/2024 4:23 PM EDT Narrative [facility] - 05/16/2024 4:23 PM EDT Erco Machine Operator ID is - [id number] us Jay Strickland MD POINT OF CARE TEST ORDERABLES Fi nal Result [facility] [address] [phone] * IR TUNNELED DIALYSIS CATHETER EXCHANGE (05/16/2024 [...] catheter, presented for exchange of hemodialysis catheter. weigh tank operator: CLARK Brown Medications: IV Conscious sedation was utilized for this procedure using 2 mg of Versed, and 100 mcg of Fentanyl. ??Additionally, 1% Lidocaine was used for skin and deep subcutaneous local anesthetic. Continuous cardiopulmonary/physiologic activity was monitored by highly qualified health long term care social worker/nurse during the the entire procedure. IV hydralazine 20 mg. Fluoroscopy Time: ??3.8 minutes Radiation exposure in reference to Air-Kerma: 487 mGy. Dose Area Product (DAP): 52702 micoGray/m2. Number of Images: 9 images. Antibiotic: [...] near the neck. ??Over the wire 7 Citizen Of [place] sheath was placed into the left brachiocephalic vein. Balloon angioplasty was performed for disruption of the fibular sheath utilizing 12 mm x 40 mm [place] balloon at multiple stations and subsequently with [...] catheter, presented for exchange of hemodialysis catheter. weigh tank operator: CLARK Brown Medications: IV Conscious sedation was utilized for this procedure using 2 mg of Versed, and 100 mcg of Fentanyl. Additionally, 1% Lidocaine was used for skin and deep subcutaneous local anesthetic. Continuous cardiopulmonary/physiologic activity was monitored by highly qualified health long term care social worker/nurse during the the entire procedure. IV hydralazine 20 mg. Fluoroscopy Time: 3.8 minutes Radiation exposure in reference to Air-Kerma: 487 mGy. Dose Area Product (DAP): [id number] micoGray/m2. Number of Images: 9 images. Antibiotic: [...] near the neck. Over the wire 7 Citizen Of [place] sheath was placed into the left brachiocephalic vein. Balloon angioplasty was performed for disruption of the fibular sheath utilizing 12 mm x 40 mm [place] balloon at multiple stations and subsequently with [...] IMG IR ORDERABLES Final Resul t * (ABNORMAL) Glucose, Nova Meter (05/16/2024 11:17 AM EDT) POC-GLUCOSE 125(H) 70 - 110 mg/dL 05/16/2024 11:18 AM EDT [facility] Comment: In the event of poor peripheral blood flow, venous or arterial blood should be used due to the potential of erroneous results. Notified Nurse RBV Erco Machine Operator [id number] 05/16/2024 11:18 AM EDT [facility] Blood WHOLE BLOOD / Unknown 05/16/2024 11:17 AM EDT 05/16/2024 11:18 AM EDT Narrative [facility] - 05/16/2024 11:18 AM EDT Erco Machine Operator ID is - [id number] us Jay Strickland MD POINT OF CARE TEST ORDERABLES Fi nal Result [facility] [address] [phone] * (ABNORMAL) Glucose, Nova Meter (05/16/2024 5:10 AM EDT) POC-GLUCOSE 133(H) 70 - 110 mg/dL 05/16/2024 5:11 AM EDT [facility] Comment: In the event of poor peripheral blood flow, venous or arterial blood should be used due to the potential of erroneous results. Protocols Followed Erco Machine Operator [id number] 05/16/2024 5:11 AM EDT [facility] Blood WHOLE BLOOD / Unknown 05/16/2024 5:10 AM EDT 05/16/2024 5:11 AM EDT [facility] - 05/16/2024 5:11 AM EDT Erco Machine Operator ID is - [id number] us Jay Strickland MD POINT OF CARE TEST ORDERABLES Fi nal Result Performing Organization Address [facility] Co de Phone Number [facility] [address] [phone] * (ABNORMAL) Glucose, Nova Meter (05/15/2024 8:50 PM EDT) Pathologist [facility] POC-GLUCOSE 113(H) 70 - 110 mg/dL 05/15/2024 8:52 PM EDT [facility] Comment: In the event of poor peripheral blood flow, venous or arterial blood should be used due to the potential of erroneous results. Protocols Followed Erco Machine Operator [id number] 05/15/2024 8:52 PM EDT [facility] Blood WHOLE BLOOD / Unknown 05/15/2024 8:50 PM EDT 05/15/2024 8:52 PM EDT [facility] - 05/15/2024 8:52 PM EDT Erco Machine Operator ID is - [id number] us Jay Strickland MD POINT OF CARE TEST ORDERABLES Fi nal Result Performing Organization Address [facility]/ZIP Co de Phone Number [facility] [address] [phone] * (ABNORMAL) Glucose, Nova Meter (05/15/2024 3:50 PM EDT) [facility] POC-GLUCOSE 135(H) 70 - 110 mg/dL 05/15/2024 3:51 PM EDT [facility] Comment: In the event of poor peripheral blood flow, venous or arterial blood should be used due to the potential of erroneous results. Protocols Followed Erco Machine Operator [id number] 05/15/2024 3:51 PM EDT [facility] Blood WHOLE BLOOD / Unknown 05/15/2024 3:50 PM EDT 05/15/2024 3:51 PM EDT Narrative [facility] - 05/15/2024 3:51 PM EDT Erco Machine Operator ID is - [id number] us Jay Strickland MD POINT OF CARE TEST ORDERABLES Fi nal Result [facility] [address] [phone] * (ABNORMAL) Basic Metabolic Panel (05/15/2024 6:23 AM EDT) [facility] Sodium 137 136 - 146 meq/L 05/15/2024 6:49 AM EDT [facility] Potassium 3.9 3.5 - 5.1 meq/L 05/15/2024 6:49 AM EDT [facility] Chloride 102 102 - 112 meq/L 05/15/2024 6:49 AM EDT [facility] CO2 26 21 - 32 meq/L 05/15/2024 6:49 AM EDT [facility] Anion Gap 13 9 - 20 05/15/2024 6:49 AM EDT [facility] BUN 42(H) 7 - 22 mg/dL 05/15/2024 6:49 AM EDT [facility] Creatinine 9.01(H) 0.70 - 1.30 mg/dL 05/15/2024 6:49 AM EDT [facility] BUN/Creatinine 5(L) 8 - 20 05/15/2024 6:49 AM EDT [facility] Glucose 122(H) 74 - 106 mg/dL 05/15/2024 6:49 AM EDT [facility] Calcium 8.7 8.4 - 10.1 mg/dL 05/15/2024 6:49 AM EDT [facility] Osmolality Calc 285.6 6:49 AM EDT [facility] eGFR (mL/min/1.73m2) 7(L) >=60 mL/min/1.7 3m2 05/15/2024 6:49 AM EDT [facility] Comment:eGFR of <60 suggests chronic kidney disease if found over a 3 month period of time. eGFR <15 indicates renal failure. Blood Venipuncture / Unknown 05/15/2024 6:23 AM EDT 05/15/2024 6:30 AM EDT us Jay Strickland MD LAB BLOOD ORDERABLES Final Resul t Performing Organization Address City/State/[facility] Co de Phone Number [facility] [address] [phone] * (ABNORMAL) CBC - Hemogram (SJ-BKR) (05/15/2024 6:23 AM EDT) WBC 4.1(L) 4.2 - 9.1 K/??L 05/15/2024 6:47 AM EDT [facility] RBC 2.74(L) 4.63 - 6.08 M/??L 05/15/2024 6:47 AM EDT [facility] Hemoglobin 9.2(L) 13.7 - 17.5 GM/DL 05/15/2024 6:47 AM EDT [facility] Hematocrit 28.6(L) 40.1 - 51.0 % 05/15/2024 6:47 AM EDT [facility] MCV 104(H) 79 - 92 fL 05/15/2024 6:47 AM EDT [facility] MCH 33.6(H) 25.7 - 32.2 pg 05/15/2024 6:47 AM EDT [facility] MCHC 32.2(L) 32.3 - 36.5 GM/DL 05/15/2024 6:47 AM EDT [facility] RDW 15.9(H) 11.6 - 14.4 % 05/15/2024 6:47 AM EDT [facility] Platelets 251 140 - 375 K/CU MM 05/15/2024 6:47 AM EDT [facility] MPV 9.6 9.4 - 12.4 fL 05/15/2024 6:47 AM EDT [facility] Blood Venipuncture / Unknown 05/15/2024 6:23 AM EDT 05/15/2024 6:30 AM EDT [facility] - 05/15/2024 6:47 AM EDT Note: reference ranges were changed on 09/12/2023. us Jay Strickland MD LAB BLOOD ORDERABLES Final Resul t Performing Organization Address City/State/[facility] Co de Phone Number [facility] [address] [phone] * Hepatitis panel, acute (05/15/2024 6:23 AM EDT) Hep A IgM Nonreactive Nonreactive, Equivocal 05/15/2024 7:49 AM EDT [facility] Hep B C IgM Nonreactive Nonreactive 05/15/2024 7:49 AM EDT [facility] Hepatitis B surface antigen Nonreactive Nonreactive, Equivocal 05/15/2024 7:49 AM EDT [facility] Hepatitis C Ab Nonreactive Nonreactive, Equivocal 05/15/2024 7:49 AM EDT [facility] Blood Venipuncture / Unknown 05/15/2024 6:23 AM EDT 05/15/2024 6:30 AM EDT Narrative [facility] - 05/15/2024 7:49 AM EDT Hepatitis [...] MD LAB BLOOD ORDERABLES Final Resu lt [facility] [address] [phone] * (ABNORMAL) Glucose, Nova Meter (05/15/2024 5:50 AM EDT) [facility] POC-GLUCOSE 117(H) 70 - 110 mg/dL 05/15/2024 5:51 AM EDT [facility] Comment: In the event of poor peripheral blood flow, venous or arterial blood should be used due to the potential of erroneous results. Notified Nurse RBV Erco Machine Operator [id number] 05/15/2024 5:51 AM EDT [facility] Blood WHOLE BLOOD / Unknown 05/15/2024 5:50 AM EDT 05/15/2024 5:51 AM EDT Narrative [facility] - 05/15/2024 5:51 AM EDT Erco Machine Operator ID is - [id number] us Jay Strickland MD POINT OF CARE TEST ORDERABLES Fi nal Result [facility] [address] [phone] * IR CENTRAL VENOUS (05/14/2024 5:27 PM EDT) Anatomical Region Laterality Modality Interventional R adiology 05/15/2024 7:41 AM EDT Impressions 05/15/2024 7:47 AM EDT Unsuccessful placement of a nontunneled central venous catheter in the right neck secondary to venous occlusion and multiple collateral veins. Unsuccessful placement of a nontunneled central venous catheter in the left neck secondary to venous occlusion and multiple collateral veins. Successful placement of a non-tunneled central venous access catheter/temporary dialysis catheter via the right common femoral vein without complications. Line is ready to use. Images personally reviewed, interpreted and dictated by CLARK Brown. Narrative 05/15/2024 7:47 AM EDT CENTRAL LINE PLACEMENT/TEMPORARY DIALYSIS CATHETER PLACEMENT HISTORY: Vascular access problem Patient with history of renal failure, requires dialysis access. Patient had a left internal jugular approach tunneled dialysis catheter, which is malfunctioning due to frequent fibrin sheath formation. All elements of maximum sterile barrier technique were utilized including cap, mask, sterile gown, sterile gloves, a large sterile sheet, hand hygiene, and 2% chlorhexidine (or acceptable alternative) for cutaneous antisepsis. 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 PROCEDURE: The procedure, risks and benefits were explained to the patient. Written informed consent was obtained. A timeout was performed. The right neck was prepped and draped in usual sterile manner. The external jugular vein was visualized with ultrasound using a sterile probe cover and sterile gel. The patency of this vein was confirmed and documented with imaging placed in the patient's record. The skin was anesthetized with 1% Lidocaine. Under direct ultrasound guidance, access to the external jugular vein was obtained with micropuncture set. Difficulty was experienced in passing the microwire, over the microcatheter, distal subtraction angiogram showed occluded external jugular vein with multiple collateral veins in the neck. The left neck was prepped and draped in usual sterile manner. The internal jugular vein was visualized with ultrasound using a sterile probe cover and sterile gel. The patency of this vein was confirmed and documented with imaging placed in the patient's record. The skin was anesthetized with 1% Lidocaine. Under direct ultrasound guidance, access to the internal jugular vein was obtained with micropuncture set. Difficulty was experienced in passing the microwire, over the microcatheter, distal subtraction angiogram showed occluded internal jugular vein with multiple collateral veins in the neck. The right groin was prepped and draped in usual sterile manner. The common femoral vein was visualized with ultrasound using a sterile probe cover and sterile gel. The patency of this vein was confirmed and documented with imaging placed in the patient's record. The skin was anesthetized with 1% Lidocaine. Under direct ultrasound guidance, access to the common femoral vein was obtained with micropuncture set. An 0.035 Guidewire was then inserted into the inferior vena cava. The venotomy was dilated with the vessel dilator. Subsequently a 30 cm temporary dialysis catheter catheter was inserted into the. Vena cava and position under fluoroscopy. The catheter was sutured into place. The catheter was flushed. Patient tolerated the procedure well. No immediate complications. Fluoroscopy Time: ??0.7 minutes. Radiation exposure in reference to Air-Kerma: 42 mGy. Dose Area Product (DAP): 1264 micoGray/m2. Number of Images: 4 images. Contrast: 10 mm of Isovue 300 Procedure Note Conner Ruvalcaba MD - 05/15/2024 CENTRAL LINE PLACEMENT/TEMPORARY DIALYSIS CATHETER PLACEMENT HISTORY: Vascular access problem Patient with history of renal failure, requires dialysis access. Patient had a left internal jugular approach tunneled dialysis catheter, which is malfunctioning due to frequent fibrin sheath formation. All elements of maximum sterile barrier technique were utilized including cap, mask, sterile gown, sterile gloves, a large sterile sheet, hand hygiene, and 2% chlorhexidine (or acceptable alternative) for cutaneous antisepsis. 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 PROCEDURE: The procedure, risks and benefits were explained to the patient. Written informed consent was obtained. A timeout was performed. The right neck was prepped and draped in usual sterile manner. The external jugular vein was visualized with ultrasound using a sterile probe cover and sterile gel. The patency of this vein was confirmed and documented with imaging placed in the patient's record. The skin was anesthetized with 1% Lidocaine. Under direct ultrasound guidance, access to the external jugular vein was obtained with micropuncture set. Difficulty was experienced in passing the microwire, over the microcatheter, distal subtraction angiogram showed occluded external jugular vein with multiple collateral veins in the neck. The left neck was prepped and draped in usual sterile manner. The internal jugular vein was visualized with ultrasound using a sterile probe cover and sterile gel. The patency of this vein was confirmed and documented with imaging placed in the patient's record. The skin was anesthetized with 1% Lidocaine. Under direct ultrasound guidance, access to the internal jugular vein was obtained with micropuncture set. Difficulty was experienced in passing the microwire, over the microcatheter, distal subtraction angiogram showed occluded internal jugular vein with multiple collateral veins in the neck. The right groin was prepped and draped in usual sterile manner. The common femoral vein was visualized with ultrasound using a sterile probe cover and sterile gel. The patency of this vein was confirmed and documented with imaging placed in the patient's record. The skin was anesthetized with 1% Lidocaine. Under direct ultrasound guidance, access to the common femoral vein was obtained with micropuncture set. An 0.035 Guidewire was then inserted into the inferior vena cava. The venotomy was dilated with the vessel dilator. Subsequently a 30 cm temporary dialysis catheter catheter was inserted into the. Vena cava and position under fluoroscopy. The catheter was sutured into place. The catheter was flushed. Patient tolerated the procedure well. No immediate complications. Fluoroscopy Time: 0.7 minutes. Radiation exposure in reference to Air-Kerma: 42 mGy. Dose Area Product (DAP): 1264 micoGray/m2. Number of Images: 4 images. Contrast: 10 mm of Isovue 300 IMPRESSION: Unsuccessful placement of a nontunneled central venous catheter in the right neck secondary to venous occlusion and multiple collateral veins. Unsuccessful placement of a nontunneled central venous catheter in the left neck secondary to venous occlusion and multiple collateral veins. Successful placement of a non-tunneled central venous access catheter/temporary dialysis catheter via the right common femoral vein without complications. Line is ready to use. Images personally reviewed, interpreted and dictated by CLARK Brown. Marilu Arceo DO IMG IR ORDERABLES Final Result * Magnesium (05/14/2024 3:38 PM EDT) [facility] Magnesium 2.1 1.5 - 2.4 mg/dL 05/14/2024 4:11 PM EDT [facility] Blood Venipuncture / Unknown 05/14/2024 3:38 PM EDT 05/14/2024 3:42 PM EDT Amna Diaz MD LAB BLOOD ORDERABLES Final Res ult Performing Organization Address City/[facility]/ZIP Co de Phone Number [facility] [address] [phone] * Lipase (05/14/2024 3:38 PM EDT) [facility] Lipase 29 13 - 75 U/L 05/14/2024 4:11 PM EDT [facility] Blood Venipuncture / Unknown 05/14/2024 3:38 PM EDT 05/14/2024 3:42 PM EDT Amna Diaz MD LAB BLOOD ORDERABLES Final Res ult Performing Organization Address [facility]/ZIP Co de Phone Number [facility] [address] [phone] * (ABNORMAL) Comprehensive metabolic panel (05/14/2024 3:38 PM EDT) [facility] Sodium 135(L) 136 - 146 meq/L 05/14/2024 4:14 PM EDT [facility] Potassium 8.0(HH) 3.5 - 5.1 meq/L 05/14/2024 4:14 PM T [facility] Chloride 111 102 - 112 meq/L 05/14/2024 4:14 PM T [facility] CO2 14(L) 21 - 32 meq/L 05/14/2024 4:14 PM [facility] Calcium 8.4 8.4 - 10.1 mg/dL 05/14/2024 4:14 PM T [facility] Glucose 138(H) 74 - 106 mg/dL 05/14/2024 4:14 PM T [facility] BUN 93(HH) 7 - 22 mg/dL 05/14/2024 4:14 PM [facility] Creatinine 15.30(H) 0.70 - 1.30 mg/dL 05/14/2024 4:14 PM [facility] BUN/Creatinine 6(L) 8 - 20 05/14/2024 4:14 PM T [facility] Albumin 3.4 3.4 - 5.0 g/dL 05/14/2024 4:14 PM [facility] Alkaline Phosphatase 258(H) 27 - 136 U/L 05/14/2024 4:14 PM [facility] ALT <6(L) 16 - 61 U/L 05/14/2024 4:14 PM [facility] AST 12 5 - 37 U/L 05/14/2024 4:14 PM [facility] Total Bilirubin 0.6 0.2 - 1.2 mg/dL 05/14/2024 4:14 PM T [facility] Protein, Total 7.3 6.4 - 8.2 gm/dL 05/14/2024 4:14 PM [facility] Anion Gap 18 9 - 20 05/14/2024 4:14 PM [facility] A/G Ratio 0.9(L) 1.1 - 2.5 05/14/2024 4:14 PM T [facility] Globulin 3.9 1.5 - 4.5 g/dL 05/14/2024 4:14 PM T [facility] Osmolality Calc 301.0 4:14 PM EDT [facility] eGFR (mL/min/1.73m2) 3(L) >=60 mL/min/1. 73m2 05/14/2024 4:14 PM EDT [facility] Comment:ESTIMATED GFR IS NOT ACCURATE CREATININE CLEARANCE IN PREDICTING GLOMERULAR FILTRATION RATE. ESTIMATED GFR IS NOT APPLICABLE FOR DIALYSIS PATIENTS. Blood Venipuncture / Unknown 05/14/2024 3:38 PM EDT 05/14/2024 3:42 PM EDT us Amna Diaz MD LAB BLOOD ORDERABLES Final Res ult [facility] [address] [phone] * (ABNORMAL) CBC with Auto Diff (05/14/2024 3:38 PM EDT) WBC 6.2 4.2 - 9.1 K/??L 05/14/2024 3:45 PM EDT [facility] RBC 3.00(L) 4.63 - 6.08 M/??L 05/14/2024 3:45 PM EDT [facility] Hemoglobin 9.6(L) 13.7 - 17.5 GM/DL 05/14/2024 3:45 PM EDT [facility] Hematocrit 31.5(L) 40.1 - 51.0 % 05/14/2024 3:45 PM EDT [facility] MCV 105(H) 79 - 92 fL 05/14/2024 3:45 PM EDT [facility] MCH 32.0 25.7 - 32.2 pg 05/14/2024 3:45 PM EDT [facility] MCHC 30.5(L) 32.3 - 36.5 GM/DL 05/14/2024 3:45 PM EDT [facility] RDW 16.3(H) 11.6 - 14.4 % 05/14/2024 3:45 PM EDT [facility] Platelets 288 140 - 375 K/CU MM 05/14/2024 3:45 PM EDT [facility] MPV 9.6 9.4 - 12.4 fL 05/14/2024 3:45 PM EDT [facility] % Neutros 63 34 - 68 % 05/14/2024 3:45 PM EDT [facility] % Lymphs 24 22 - 53 % 05/14/2024 3:45 PM EDT [facility] % Monos 6 5 - 12 % 05/14/2024 3:45 PM EDT [facility] % Eos 3 1 - 7 % 05/14/2024 3:45 PM EDT [facility] % Baso 0 0 - 1 % 05/14/2024 3:45 PM EDT [facility] NRBC Absolute <0.01 0 - 0.012 K/ul 05/14/2024 3:45 PM EDT [facility] # Neutros 3.94 1.78 - 5.38 K/??L 05/14/2024 3:45 PM EDT [facility] # Lymphs 1.51 1.32 - 3.57 K/??L 05/14/2024 3:45 PM EDT [facility] # Monos 0.34 0.30 - 0.82 K/??L 05/14/2024 3:45 PM EDT [facility] # Eos 0.18 0.04 - 0.54 K/??L 05/14/2024 3:45 PM EDT [facility] # Baso <0.03 0.01 - 0.08 K/??L 05/14/2024 3:45 PM EDT [facility] Immature Granulocytes-Re lative 3.90(H) 0.01 - 0.43 % 05/14/2024 3:45 PM EDT [facility] # IG 0.24(H) 0.00 - 0.03 K/uL 05/14/2024 3:45 PM EDT [facility] Blood Venipuncture / Unknown 05/14/2024 3:38 PM EDT 05/14/2024 3:41 PM EDT [facility] - 05/14/2024 3:45 PM EDT When CBC w/ Auto Diff is ordered the lab will add a Manual Differential as a quality check at no additional charge if: Lymphocytes greater than seventy five percent with normal or increased WBC Monocytes greater than Fifteen percent Basophil greater than four percent Bands >10% or several immature myeloids are seen on scan Blast? Flag noted Atypical Lymph flag noted Note: reference ranges were changed on 09/12/2023. us Amna Diaz MD LAB BLOOD ORDERABLES Final Res ult [facility] [address] [phone] documented in this encounter Visit Diagnoses Diagnosis Pain- Primary Generalized pain Hyperkalemia Hyperpotassemia Metabolic acidosis Acidosis Complication associated with dialysis catheter documented in this encounter Admitting Diagnoses Diagnosis Pain Generalized pain documented in this encounter Administered Medications Inactive Administered Medications - up to 3 most recent administrations Medication Order MAR Action Action Date Dose Rate Site acetaminophen (TYLENOL) tablet 1,000 mg 1,000 mg Every 6 hours PRN, oral, mild pain (1-3), and severe pain (7-10), Starting on Mon05/14/24 at 1719, Recommended maximum dose of acetaminophen is 4000 mg from all sources in 24 hours Given 05/15/2024 1:50 AM EDT 1,000 mg ALPRAZolam (XANAX) tablet 0.5 mg 0.5 mg 3 times daily PRN, oral, anxiety, insomnia, Starting on Mon05/14/24 at 1720 Given 05/15/2024 9:02 AM EDT 0.5 mg Given 05/14/2024 11:17 PM EDT 0.5 mg aspirin chewable tablet 81 mg 81 mg Daily, oral, First dose on Mon05/14/24 at 1725 Given 05/16/2024 9:51 AM EDT 81 mg Given 05/15/2024 9:03 AM EDT 81 mg carvediloL (COREG) tablet 25 mg 25 mg 2 times daily with breakfast and dinner, oral, First dose on Mon05/14/24 at 1725, Hold for systolic BP < 90 mmHg or for HR < 50 BPM Given 05/16/2024 5:41 PM EDT 25 mg Given 05/16/2024 9:51 AM EDT 25 mg Given 05/15/2024 4:42 PM EDT 25 mg ceFAZolin (ANCEF) injection IMG once as needed, intravenous, Starting on Mon05/16/24 at 1533, For 1 dose, Intra-op Given 05/16/2024 3:33 PM EDT 3 g cycloSPORINE (SandIMMUNE) capsule 100 mg 100 mg Every morning, oral, First dose (after last modification) on Mon05/16/24 at 0900, Caution: Recommend wearing gloves during administration. DO NOT BREAK/CRUSH/CHEW. Employees who are , trying to become , or should not handle this medication. Dispose of trace medication (including packaging) in the BLACK waste bin. Given 05/16/2024 9:59 AM EDT 100 mg cycloSPORINE (SandIMMUNE) capsule 125 mg 125 mg Every Night, oral, First dose on Mon05/16/24 at 0030, Caution: Recommend wearing gloves during administration. DO NOT BREAK/CRUSH/CHEW. Employees who are , trying to become , or should not handle this medication. Dispose of trace medication (including packaging) in the BLACK waste bin. cycloSPORINE (SandIMMUNE) capsule 25 mg 25 mg Daily, oral, First dose on Mon05/14/24 at 1725, Caution: Recommend wearing gloves during administration. DO NOT BREAK/CRUSH/CHEW. Employees who are , trying to become , or should not handle this medication. Dispose of trace medication (including packaging) in the BLACK waste bin. Given 05/15/2024 9:04 AM EDT 25 mg dextrose 50% (D50W) injection 25 g 25 g As needed, intravenous, low blood glucose (specify value in prn comments), less than 41 mg/dL or 41-69 mg/dL and unable to take PO, Starting on Mon05/14/24 at 1719, For 2 doses, Repeat blood glucose every 15 minutes until blood glucose greater than 70 mg/dL. Call Provider if not resolved after 2 treatments Repeat BS in 1 hour, retime for 1 hour after blood sugar greater than 70 mg/dL If less than 41: Repeat Finger stick within 5 minutes with same machine Send serum glucose level: Do not wait on lab to treat docusate sodium (COLACE) capsule 100 mg 100 mg 2 times daily PRN, oral, constipation, Starting on Mon05/14/24 at 1719, Bowel Regimen - for prevention of constipation. fentaNYL PF (SUBLIMAZE) injection IMG once as needed, intravenous, Starting on Mon05/16/24 at 1543, For 1 dose, Intra-op Given 05/16/2024 3:43 PM EDT 50 mcg fentaNYL PF (SUBLIMAZE) injection IMG once as needed, intravenous, Starting on Mon05/16/24 at 1548, For 1 dose, Intra-op Given 05/16/2024 3:48 PM EDT 50 mcg glucagon injection 1 mg 1 mg As needed, intraMUSCULAR, low blood glucose (specify value in prn comments), For Patients without IV access and blood glucose 41-69 mg/dL AND unable to take PO OR Less than 41 mg/dL, Starting on Mon05/14/24 at 1719, For 2 doses, Caution: glucagon . Roll patient on their side when administering to prevent aspiration. Call Provider if not resolved after 2 treatments Repeat BS in 1 hour, retime for 1 hour after blood sugar greater than 70 mg/dL glucose chewable tablet 16 g 16 g As needed, oral, low blood glucose (specify value in prn comments), 41-69 mg/dL, Starting on Mon05/14/24 at 1719, For 3 doses, For Patients who can take oral AND [...] blood sugar greater than 70 mg/dL heparin 1,000 Units/mL injection IMG once as needed, intravenous, Starting on Mon05/16/24 at 1601, For 1 dose, Intra-op Given 05/16/2024 4:01 PM EDT 1,000 Units heparin 1,000 Units/mL injection IMG once as needed, intravenous, Starting on Mon05/16/24 at 1601, For 1 dose, Intra-op Given 05/16/2024 4:01 PM EDT 1,000 Units heparin injection 5,000 Units 5,000 Units Every 12 hours scheduled, subcutaneous, First dose on Mon05/14/24 at 2100 Given 05/16/2024 9:51 AM EDT 5,000 Units Abdominal Tissue Given 05/15/2024 9:37 PM EDT 5,000 Units A bdominal Tissue Given 05/15/2024 9:03 AM EDT 5,000 Units A bdominal Tissue hydrALAZINE (APRESOLINE) injection 10 mg 10 mg Every 6 hours PRN, intravenous, hypertension (sbp greater than 160), Starting on Mon05/14/24 at 1719, Hold if SBP < 100 mmHg, DBP < 50 mmHg, or patient is on pressor. Look-alike/Sound-alike medication Given 05/15/2024 1:50 AM EDT 10 mg hydrOXYzine (ATARAX) tablet 25 mg 25 mg Once as needed, oral, anxiety, Starting on Mon05/15/24 at 1537, For 1 dose, Look-alike/Sound-alike medication Given 05/15/2024 6:04 PM EDT 25 mg icosapent ethyL (VASCEPA) capsule 2 g 2 g 2 times daily (2 capsule), oral, First dose on Mon05/14/24 at 2100, Do not crush, chew, or split. Given 05/16/2024 9:51 AM EDT 2 g Given 05/15/2024 9:37 PM EDT 2 g Given 05/15/2024 9:02 AM EDT 2 g insulin lispro (HUMALOG, ADMELOG) injection 0-18 Units 0-18 Units 4 times daily (before meals and nightly), subcutaneous, First dose on Mon05/14/24 at 1725, If Blood Sugar is less than 180 beteween 8978-0909, DO NOT give corrective insulin unless otherwise [...] injection IMG once as needed, Starting on Mon05/16/24 at 1601, For 1 dose, Intra-op Given 05/16/2024 4:01 PM EDT 40 mLs lidocaine (PF) injection 10 mg/mL (1%) IMG once as needed, intradermal, Starting on Mon05/14/24 at 1653, For 1 dose, Intra-op Given 05/14/2024 4:53 PM EDT 10 mLs lidocaine (PF) injection 10 mg/mL (1%) IMG once as needed, intradermal, Starting on Mon05/14/24 at 1708, For 1 dose, Intra-op Given 05/14/2024 5:08 PM EDT 10 mLs lidocaine (PF) injection 10 mg/mL (1%) IMG once as needed, intradermal, Starting on Mon05/14/24 at 1720, For 1 dose, Intra-op Given 05/14/2024 5:20 PM EDT 10 mLs lidocaine (PF) injection 10 mg/mL (1%) IMG once as needed, intradermal, Starting on Mon05/16/24 at 1545, For 1 dose, Intra-op Given 05/16/2024 3:45 PM EDT 10 mLs Left Upper Chest melatonin tablet 3 mg 3 mg Every Night PRN, oral, insomnia, Starting on Mon05/14/24 at 1719 midazolam (PF) (VERSED) injection IMG once as needed, intravenous, Starting on Mon05/16/24 at 1543, For 1 dose, Intra-op Given 05/16/2024 3:43 PM EDT 1 mg midazolam (PF) (VERSED) injection IMG once as needed, intravenous, Starting on Mon05/16/24 at 1549, For 1 dose, Intra-op Given 05/16/2024 3:49 PM EDT 1 mg montelukast (SINGULAIR) tablet 10 mg 10 mg Daily, oral, First dose on Mon05/14/24 at 1725 Given 05/16/2024 9:51 AM EDT 10 mg Given 05/15/2024 9:03 AM EDT 10 mg morphine injection 2 mg 2 mg Every 4 hours PRN, intravenous, moderate pain (4-6), severe pain (7-10), Starting on Mon05/14/24 at 1719, If inadequate response (less than 50% reduction in pain score) within 60 minutes, proceed to next-line agent for same PRN reason or contact provider if no further options ordered. Given 05/16/2024 5:41 PM EDT 2 mg Given 05/15/2024 9:37 PM EDT 2 mg Given 05/15/2024 2:44 PM EDT 2 mg mycophenolate mofetil (CELLCEPT) capsule 250 mg 250 mg 2 times daily, oral, First dose on Mon05/14/24 at 2100, * DO NOT CRUSH THIS DOSAGE FORM * Caution: Recommend wearing gloves during administration. DO NOT BREAK/CRUSH/CHEW. Employees who are , trying to become , or should not handle this medication. Dispose of trace medication (including packaging) in the BLACK waste bin. Given 05/16/2024 10:00 AM EDT 250 mg Given 05/15/2024 9:37 PM EDT 250 mg Given 05/15/2024 9:04 AM EDT 250 mg naloxone (NARCAN) injection 0.2 mg 0.2 mg Every 2 min PRN, intravenous, opioid reversal, respiratory depression, Starting on Mon05/14/24 at 1719, Give for respiratory rate less than 10 breaths/min or if patient is difficult to arouse. Max dose = 10 mg. Call provider. NIFEdipine (PROCARDIA-XL) 24 hr tablet 90 mg 90 mg Daily, oral, First dose on Mon05/14/24 at 1725, Do Not Crush or Chew Antihypertensive - Check BP - Check Pulse * DO NOT CRUSH THIS DOSAGE FORM * Given 05/16/2024 9:52 AM EDT 90 mg Given 05/15/2024 2:01 AM EDT 90 mg ondansetron (ZOFRAN-ODT) disintegrating tablet 4 mg 4 mg Every 8 hours PRN, oral, nausea, vomiting, Starting on Mon05/14/24 at 1719, 1st line. If inadequate response within 60 minutes, proceed to next-line agent for same PRN reason or contact provider if no further options ordered. ondansetron PF (ZOFRAN) injection 4 mg 4 mg Once, intravenous, On Mon05/14/24 at 1525, For 1 dose, For IV push, give over 2 - 5 minutes. Given 05/14/2024 3:35 PM EDT 4 mg ondansetron PF (ZOFRAN) injection 4 mg 4 mg Every 8 hours PRN, intravenous, nausea, vomiting, Starting on Mon05/14/24 at 1719, Give IV if patient is unable to take orally. 1st line If inadequate response within 60 minutes, proceed to next-line agent for same PRN reason or contact provider if no further options ordered. For IV push, give over 2 - 5 minutes. Given 05/15/2024 3:48 AM EDT 4 mg pantoprazole (PROTONIX) EC tablet 40 mg 40 mg Daily, oral, First dose on Mon05/14/24 at 1725, * DO NOT CRUSH THIS DOSAGE FORM * Given 05/16/2024 9:51 AM EDT 4 0 mg Given 05/15/2024 9:03 AM EDT 40 mg polyethylene glycol (GLYCOLAX) packet 17 g 17 g Daily as needed, oral, constipation, Starting on Mon05/14/24 at 1719, Bowel Regimen - for prevention of constipation. promethazine (PHENERGAN) 12.5 mg in sodium chloride 0.9 % (NS) 50 mL IVPB 12.5 mg Every 6 hours PRN, intravenous, Administer over 20 Minutes, nausea, vomiting, Starting on Mon05/15/24 at 1219, Pharmacists to reduce dose to 12.5 mg regardless of route in patients 65 years and older. EXCEPTION: Patients on chemotherapy or receiving transfusion. IVPB Started 05/15/2024 10:55 PM EDT 12.5 mg 150 mL/hr sodium chloride 0.9 % infusion Continuous PRN, intravenous, Starting on Bobbi 05/16/24 at 1532, Intra-op New Bag 05/16/2024 3:32 PM EDT 5 mL/hr 5 mL/hr sodium chloride flush 10 mL 10 mL As needed, intra-catheter, line care, Post Dialysis, Starting on Mon05/14/24 at 1637, Arterial lumen, Dialysis sodium chloride flush 10 mL 10 mL As needed, intra-catheter, line care, Post Dialysis, Starting on Mon05/14/24 at 1637, Venous lumen, Dialysis sodium chloride flush 10 mL 10 mL As needed, intra-catheter, line care, Post Dialysis, Starting on Mon05/14/24 at 1638, Arterial lumen, Dialysis sodium chloride flush 10 mL 10 mL As needed, intra-catheter, line care, Post Dialysis, Starting on Mon05/14/24 at 1638, Venous lumen, Dialysis documented in this encounter Active and Recently Administered Medications Times are shown in EDT. Scheduled Medication Order 05/14/2024 05/15/2024 05/16/2024 aspirin chewable tablet 81 mg 81 mg Daily, oral, First dose on Mon05/14/24 at 1725 1725 (Due) 0903 (Given - Provider: Judi Crow) 0951 (Given - Provider: Judi Crow) calcium gluconate injection 1 g 1 g Once, intravenous, On Mon05/14/24 at 1620, For 1 dose 1955 (Hold - Provider: Latrice Oglesby - Reason: Per MD Order) carvediloL (COREG) tablet 25 mg 25 mg 2 times daily with breakfast and dinner, oral, First dose on Mon05/14/24 at 1725, Hold for systolic BP < 90 mmHg or for HR < 50 BPM 0201 (Given - Provider: Jessica Dawson RN)0905 (Not Given - Provider: Judi Crow - Reason: Other (with Comment) - Comment: per dialysis)1642 (Given - Provider: Judi Crow) 0951 (Given - Provider: Judi Crow)1741 (Given - Provider: Judi Crow) cycloSPORINE (SandIMMUNE) capsule 100 mg 100 mg Every morning, oral, First dose (after last modification) on Mon05/16/24 at 0900, Caution: Recommend wearing gloves during administration. DO NOT BREAK/CRUSH/CHEW. Employees who are , trying to become , or should not handle this medication. Dispose of trace medication (including packaging) in the BLACK waste bin. 0959 (Given - Provider: Judi Crow) cycloSPORINE (SandIMMUNE) capsule 125 mg 125 mg Every Night, oral, First dose on Bobbi 05/16/24 at 0030, Caution: Recommend wearing gloves during administration. DO NOT BREAK/CRUSH/CHEW. Employees who are , trying to become , or should not handle this medication. Dispose of trace medication (including packaging) in the BLACK waste bin. 0000 (Not Given - Provider: Carrol Gonzalez RN - Reason: Other (with Comment) - Comment: Pt insisted on taking his own supply at 2100. Adviced to send medication to pharmacy for barcoding but pt refused. Educated to NOT take own doses anymore as dose has been corrected on his MAR to his current outpatient dose. Understanding verbalized.) cycloSPORINE (SandIMMUNE) capsule 25 mg (CANCELED) 25 mg Daily, oral, First dose on Mon05/14/24 at 1725, Caution: Recommend wearing gloves during administration. DO NOT BREAK/CRUSH/CHEW. Employees who are , trying to become , or should not handle this medication. Dispose of trace medication (including packaging) in the BLACK waste bin. 1725 (Due) 0904 (Given - Provider: Judi Crow) dextrose 50% (D50W) injection 25 g 25 g Once (50 mL), intravenous, On Mon05/14/24 at 1635, For 1 dose 5 (Not Given - Provider: Latrice Oglesby - Reason: Per MD Order) gabapentin (NEURONTIN) capsule 300 mg 300 mg Every Night, oral, First dose on Mon05/14/24 at 2100 2253 (Not Given - Provider: Jessica Dawson RN - Reason: Patient/family refused) 2158 (Not Given - Provider: Carrol Gonzalez RN - Reason: Patient/family refused) heparin injection 5,000 Units 5,000 Units Every 12 hours scheduled, subcutaneous, First dose on Mon05/14/24 at 2100 2301 (Given - Provider: Jessica Dawson RN) 09 (Given - Provider: Judi Crow)2136 (Given - Provider: Carrol Gonzalez, JANA) 0951 (Given - Provider: Judi Crow) icosapent ethyL (VASCEPA) capsule 2 g 2 g 2 times daily (2 capsule), oral, First dose on Mon05/14/24 at 2100, Do not crush, chew, or split. 2301 (Given - Provider: Jessica Dawson RN) 0902 (Given - Provider: Judi Crow)2136 (Given - Provider: Carrol Gonzalez, JANA) 0951 (Given - Provider: Judi Crow) insulin lispro (HUMALOG, ADMELOG) injection 0-18 Units 0-18 Units 4 times daily (before meals and nightly), subcutaneous, First dose on Mon05/14/24 at 1725, If Blood Sugar is less than 180 beteween [id number], DO NOT give corrective insulin unless otherwise [...] LESS than [70] and GREATER than [400] 1955 (Not Given - Provider: Latrice Oglesby - Reason: Per Order)2248 (Not Given - Provider: Jessica Dawson RN - Reason: Per Order - Comment: [phone]) 0905 (Not Given - Provider: Judi Crow - Reason: Order parameters not met)1054 (Not Given - Provider: Judi Crow - Reason: Order parameters not met)1641 (Not Given - Provider: Judi Crow - Reason: Order parameters not met - Comment: [phone] (Not Given - Provider: Carrol Gonzalez RN - Reason: Order parameters not met) 0632 (Not Given - Provider: Carrol Gonzalez RN - Reason: Order parameters not met)1223 (Not Given - Provider: Judi Crow - Reason: Order parameters not met - Comment: [phone] (Not Given - Provider: Judi Crow - Reason: Order parameters not met) insulin regular (HUMULIN R,NOVOLIN R) injection 10 Units Once, intravenous, On Mon05/14/24 at 1635, For 1 dose, If blood sugar is less than 180 between 3903-1074, DO NOT give corrective insulin unless otherwise ordered. 1954 (Not Given - Provider: Latrice Oglesby - Reason: Per MD Order) montelukast (SINGULAIR) tablet 10 mg 10 mg Daily, oral, First dose on Mon05/14/24 at 1725 1725 (Due) 0903 (Given - Provider: Judi Crow) 0951 (Given - Provider: Judi Crow) mycophenolate mofetil (CELLCEPT) capsule 250 mg 250 mg 2 times daily, oral, First dose on Mon05/14/24 at 2100, * DO NOT CRUSH THIS DOSAGE FORM * Caution: Recommend wearing gloves during administration. DO NOT BREAK/CRUSH/CHEW. Employees who are , trying to become , or should not handle this medication. Dispose of trace medication (including packaging) in the BLACK waste bin. 2301 (Given - Provider: Jessica Dawson RN) 0904 (Given - Provider: Judi Crow)2137 (Given - Provider: Carrol Gonzalez RN) 1000 (Given - Provider: Judi Crow) NIFEdipine (PROCARDIA-XL) 24 hr tablet 90 mg 90 mg Daily, oral, First dose on Mon05/14/24 at 1725, Do Not Crush or Chew Antihypertensive - Check BP - Check Pulse * DO NOT CRUSH THIS DOSAGE FORM * 0201 (Given - Provider: Jessica Dawson RN)0901 (Not Given - Provider: Judi Crow - Reason: Other (with Comment) - Comment: per dialysis) 0952 (Given - Provider: Judi Crow) ondansetron PF (ZOFRAN) injection 4 mg (COMPLETED) 4 mg Once, intravenous, On Mon05/14/24 at 1525, For 1 dose, For IV push, give over 2 - 5 minutes. 1535 (Given - Provider: Latrice Oglesby) pantoprazole (PROTONIX) EC tablet 40 mg 40 mg Daily, oral, First dose on Mon05/14/24 at 1725, * DO NOT CRUSH THIS DOSAGE FORM * 1725 (Due) 0903 (Given - Provider: Judi Crow) 0951 (Given - Provider: Judi Crow) sodium bicarbonate injection 100 mEq 100 mEq Once, intravenous, On Mon05/14/24 at 1635, For 1 dose 1955 (Not Given - Provider: Latrice Oglesby - Reason: Per MD Order) sodium zirconium cyclosilicate (LOKELMA) packet 10 g 10 g Once, oral, On Mon05/14/24 at 1620, For 1 dose, Administer other oral meds 2 hrs before or 2 hrs after Lokelma. Empty entire contents of pkt(s) into a drinking glass containing about 3 tbsp of water or more, if desired. Stir well & drink immediately. If powder remains in drinking glass, add water, stir, & drink immediately. Repeat until no powder remains to ensure the entire dose is taken. 1954 (Not Given - Provider: Latrice Oglesby - Reason: Per MD Order) PRN Medication Order 05/14/2024 05/15/2024 05/16/2024 acetaminophen (TYLENOL) tablet 1,000 mg 1,000 mg Every 6 hours PRN, oral, mild pain (1-3), and severe pain (7-10), Starting on Mon05/14/24 at 1719, Recommended maximum dose of acetaminophen is 4000 mg from all sources in 24 hours 0150 (Given - Provider: Jessica Dawson RN) ALPRAZolam (XANAX) tablet 0.5 mg 0.5 mg 3 times daily PRN, oral, anxiety, insomnia, Starting on Mon05/14/24 at 1720 2317 (Given - Provider: Jessica Dawson RN) 0902 (Given - Provider: Judi Crow) calcium carbonate (TUMS) chewable tablet 500 mg (elemental calcium 200 mg) 1,000 mg 3 times daily PRN (2 tablet), oral, indigestion, heartburn, Starting on Mon05/14/24 at 1720, Each tablet contains 500 mg of calcium carbonate which equals 200 mg of elemental calcium. ceFAZolin (ANCEF) injection (COMPLETED) IMG once as needed, intravenous, Starting on Mon05/16/24 at 1533, For 1 dose, Intra-op 1533 (Given - Provider: Ronald Brooks RN) dextrose 50% (D50W) injection 25 g 25 g As needed, intravenous, low blood glucose (specify value in prn comments), less than 41 mg/dL or 41-69 mg/dL and unable to take PO, Starting on Mon05/14/24 at 1719, For 2 doses, Repeat blood glucose every 15 minutes until blood glucose greater than 70 mg/dL. Call Provider if not resolved after 2 treatments Repeat BS in 1 hour, retime for 1 hour after blood sugar greater than 70 mg/dL If less than 41: Repeat Finger stick within 5 minutes with same machine Send serum glucose level: Do not wait on lab to treat docusate sodium (COLACE) capsule 100 mg 100 mg 2 times daily PRN, oral, constipation, Starting on Mon05/14/24 at 1719, Bowel Regimen - for prevention of constipation. fentaNYL PF (SUBLIMAZE) injection (COMPLETED) IMG once as needed, intravenous, Starting on Mon05/16/24 at 1543, For 1 dose, Intra-op 1543 (Given - Provider: Ronald Brooks RN) fentaNYL PF (SUBLIMAZE) injection (COMPLETED) IMG once as needed, intravenous, Starting on Mon05/16/24 at 1548, For 1 dose, Intra-op 1548 (Given - Provider: Ronald Brooks RN) glucagon injection 1 mg 1 mg As needed, intraMUSCULAR, low blood glucose (specify value in prn comments), For Patients without IV access and blood glucose 41-69 mg/dL AND unable to take PO OR Less than 41 mg/dL, Starting on Mon05/14/24 at 1719, For 2 doses, Caution: glucagon . Roll patient on their side when administering to prevent aspiration. Call Provider if not resolved after 2 treatments Repeat BS in 1 hour, retime for 1 hour after blood sugar greater than 70 mg/dL glucose chewable tablet 16 g 16 g As needed, oral, low blood glucose (specify value in prn comments), 41-69 mg/dL, Starting on Mon05/14/24 at 1719, For 3 doses, For Patients who can take oral AND [...] blood sugar greater than 70 mg/dL heparin 1,000 Units/mL injection (COMPLETED) IMG once as needed, intravenous, Starting on Mon05/16/24 at 1601, For 1 dose, Intra-op 1601 (Given - Provider: Conner Ruvlacaba MD) heparin 1,000 Units/mL injection (COMPLETED) IMG once as needed, intravenous, Starting on Mon05/16/24 at 1601, For 1 dose, Intra-op 1601 (Given - Provider: Conner Ruvalcaba MD) hydrALAZINE (APRESOLINE) injection 10 mg 10 mg Every 6 hours PRN, intravenous, hypertension (sbp greater than 160), Starting on Mon05/14/24 at 1719, Hold if SBP < 100 mmHg, DBP < 50 mmHg, or patient is on pressor. Look-alike/Sound-alike medication 0150 (Given - Provider: Jessica Dawson RN) hydrOXYzine (ATARAX) tablet 25 mg (COMPLETED) 25 mg Once as needed, oral, anxiety, Starting on Mon05/15/24 at 1537, For 1 dose, Look-alike/Sound-alike medication 1804 (Given - Provider: Judi Crow) iopamidoL (ISOVUE-300) injection (COMPLETED) IMG once as needed, Starting on Mon05/16/24 at 1601, For 1 dose, Intra-op 1601 (Given - Provider: Conner Ruvalcaba MD) lidocaine (PF) injection 10 mg/mL (1%) (COMPLETED) IMG once as needed, intradermal, Starting on Mon05/14/24 at 1653, For 1 dose, Intra-op 1653 (Given - Provider: Conner Ruvalcaba MD) lidocaine (PF) injection 10 mg/mL (1%) (COMPLETED) IMG once as needed, intradermal, Starting on Mon05/14/24 at 1708, For 1 dose, Intra-op 1708 (Given - Provider: Conner Ruvalcaba MD) lidocaine (PF) injection 10 mg/mL (1%) (COMPLETED) IMG once as needed, intradermal, Starting on Mon05/14/24 at 1720, For 1 dose, Intra-op 1720 (Given - Provider: Conner Ruvalcaba MD) lidocaine (PF) injection 10 mg/mL (1%) (COMPLETED) IMG once as needed, intradermal, Starting on Mon05/16/24 at 1545, For 1 dose, Intra-op 1545 (Given - Provider: Conner Ruvalcaba MD) melatonin tablet 3 mg 3 mg Every Night PRN, oral, insomnia, Starting on Mon05/14/24 at 1719 midazolam (PF) (VERSED) injection (COMPLETED) IMG once as needed, intravenous, Starting on Bobbi 05/16/24 at 1543, For 1 dose, Intra-op 1543 (Given - Provider: Ronald Brooks RN) midazolam (PF) (VERSED) injection (COMPLETED) IMG once as needed, intravenous, Starting on Bobbi 05/16/24 at 1549, For 1 dose, Intra-op 1549 (Given - Provider: Ronald Brooks RN) morphine injection 2 mg 2 mg Every 4 hours PRN, intravenous, moderate pain (4-6), severe pain (7-10), Starting on Mon05/14/24 at 1719, If inadequate response (less than 50% reduction in pain score) within 60 minutes, proceed to next-line agent for same PRN reason or contact provider if no further options ordered. 2300 (Given - Provider: Jessica Dawson RN) 0341 (Given - Provider: Carrol Gonzalez, JANA)1444 (Given - Provider: Judi Crow)2137 (Given - Provider: Carrol Gonzalez, JANA) 1741 (Given - Provider: Judi Crow) naloxone (NARCAN) injection 0.2 mg 0.2 mg Every 2 min PRN, intravenous, opioid reversal, respiratory depression, Starting on Mon05/14/24 at 1719, Give for respiratory rate less than 10 breaths/min or if patient is difficult to arouse. Max dose = 10 mg. Call provider. ondansetron (ZOFRAN-ODT) disintegrating tablet 4 mg(Linked Group 1) 4 mg Every 8 hours PRN, oral, nausea, vomiting, Starting on Mon05/14/24 at 1719, 1st line. If inadequate response within 60 minutes, proceed to next-line agent for same PRN reason or contact provider if no further options ordered. 034 (See Alternative - Provider: Carrol Gonzalez, JANA) ondansetron PF (ZOFRAN) injection 4 mg(Linked Group 1) 4 mg Every 8 hours PRN, intravenous, nausea, vomiting, Starting on Mon05/14/24 at 1719, Give IV if patient is unable to take orally. 1st line If inadequate response within 60 minutes, proceed to next-line agent for same PRN reason or contact provider if no further options ordered. For IV push, give over 2 - 5 minutes. 0348 (Given - Provider: Carrol Gonzalez, JANA) polyethylene glycol (GLYCOLAX) packet 17 g 17 g Daily as needed, oral, constipation, Starting on Mon05/14/24 at 1719, Bowel Regimen - for prevention of constipation. promethazine (PHENERGAN) 12.5 mg in sodium chloride 0.9 % (NS) 50 mL IVPB 12.5 mg Every 6 hours PRN, intravenous, Administer over 20 Minutes, nausea, vomiting, Starting on Mon05/15/24 at 1219, Pharmacists to reduce dose to 12.5 mg regardless of route in patients 65 years and older. EXCEPTION: Patients on chemotherapy or receiving transfusion. 2255 (IVPB Started - Provider: Carrol Gonzalez, JANA)2321 (IVPB Stopped - Provider: Carrol Gonzalez, JANA) sodium chloride 0.9 % infusion (COMPLETED) Continuous PRN, intravenous, Starting on Bobbi 05/16/24 at 1532, Intra-op 1532 (New Bag - Provider: Ronald Brooks RN) sodium chloride flush 10 mL 10 mL As needed, intra-catheter, line care, Post Dialysis, Starting on Mon05/14/24 at 1637, Arterial lumen, Dialysis sodium chloride flush 10 mL 10 mL As needed, intra-catheter, line care, Post Dialysis, Starting on Mon05/14/24 at 1637, Venous lumen, Dialysis sodium chloride flush 10 mL 10 mL As needed, intra-catheter, line care, Post Dialysis, Starting on Mon05/14/24 at 1638, Arterial lumen, Dialysis sodium chloride flush 10 mL 10 mL As needed, intra-catheter, line care, Post Dialysis, Starting on Mon05/14/24 at 1638, Venous lumen, Dialysis Linked Groups Order Group 1: ondansetron (ZOFRAN-ODT) disintegrating tablet 4 mgJump to med 4 mg Every 8 hours PRN, oral, nausea, vomiting, Starting on Mon05/14/24 at 1719, 1st line. If inadequate response within 60 minutes, proceed to next-line agent for same PRN reason or contact provider if no further options ordered. Or ondansetron PF (ZOFRAN) injection 4 mgJump to med 4 mg Every 8 hours PRN, intravenous, nausea, vomiting, Starting on Mon05/14/24 at 1719, Give IV if patient is unable to take orally. 1st line If inadequate response within 60 minutes, proceed to next-line agent for same PRN reason or contact provider if no further options ordered. For IV push, give over 2 - 5 minutes. documented in this encounter Care Teams [employer] Relationship Specialty Start Date End Date Edgar Fournier MD [address] [place] [id number] PCP - General Family Medicine 01/17/23 06/26/24 documented as of this encounter
--- OUTSIDE RECORDS SUMMARY | 2024-07-12 12:22 | XMS_ITS | Encounter Summary ---
Author Organization [facility] Address [address] [place] [address] Care Team Providers Care [employer] Salesperson Name Role Phone Maile Valles RN Unavailable Unavail able Jack Ordoñez MD Unavailable [phone] Estephania Sharif PharmD Unavailable Christine Edgar Tolentino MD Primary Care Provider [phone] Source Comments This information has been disclosed to you from confidential records protectfrom disclosure by state law. You shall make no further disclosure of thisinformation without the specific, written, and informed release of theindividual to whom it pertains, or as otherwise permitted by law. A generalauthorization for the release of medical or other information is not sufficientfor the purposes of the release of HIV test results or diagnoses. [id number] Health Encounter Details Date Type Department Care Team (Late st Contact Info) Description 04/29/2024 Orders Only [facility] Transplant Hepatobiliary at [place] [id number] [facility] [address] [place] [address] Nathalie Murphy MA ESRD (end stage renal disease) ([facility]) (Primary Dx) Social History Tobacco Use Types Packs/Day Years Used Date Smoking Tobacco: Never Smokeless Tobacco: Never Alcohol Use Standard Drinks/Week Comments Never 0 (1 standard drink = 0.6 oz pur e alcohol) Utilities Answer Date Recorded In the past 12 months has th e electric, gas, oil, or water company threatened to shut off services in your home? No 04/28/2024 AUDIT-C Answer Date Recorded Q1: How often do you have a drink containing alcohol? Never 04/28/2024 Q2: How many drinks containi ng alcohol do you have on a typical day when you are drinking? Patient does not drink Q3: How often do you have si x or more drinks on one occasion? Never 04/28/2024 PHQ-2 Answer Date Recorded PHQ-2 Total Score 0 04/07/2022 Hunger Vital Sign Answer Date Recorded Within the past 12 months, y ou worried that your food would run out before you got the money to buy more. Never true 04/28/20 24 Within the past 12 months, t he food you bought just didn't last and you didn't have money to get more. Never true 04/28/2024 PRAPARE - Transportation Answer Date Re corded In the past 12 months, has l ack of transportation kept you from medical appointments or from getting medications? No 04/14 In the past 12 months, has l ack of transportation kept you from meetings, work, or from getting things needed for daily living? No 04/28/2024 Housing Stability Vital Sign Answer Gilbert e Recorded In the last 12 months, was t here a time when you were not able to pay the mortgage or rent on time? Yes 11/05/2023 In the last 12 months, how many places have you lived? 1 11/05/2023 In the last 12 months, was t here a time when you did not have a steady place to sleep or slept in a retirement (including now)? No 11/05/2023 Housing Stability Vital Sign Answer Gilbert e Recorded In the last 12 months, was t here a time when you were not able to pay the mortgage or rent on time? No 04/28/2024 In the past 12 months, how m any times have you moved where you were living? 0 04/28/2024 At any time in the past 12 m [facility], were you homeless or living in a retirement (including now)? No 04/28/2024 Sex and Gender Information Value Date Recorded Sex Assigned at Not on file Legal Sex Male 11:05 AM EDT Gender Identity Not on file Sexual Orientation Not on file documented as of this encounter Plan of Treatment Upcoming Encounters Date Type Department Care Team (Late st Contact Info) Description 07/15/2024 9:00 AM EST Hospital Encounter [facility] Interventional Radiology [address] [place] [id number] Herve Carrillo MD [address] [facility] [address] [place] [phone] documented as of this encounter Visit Diagnoses Diagnosis ESRD (end stage renal disease) (CMS-HCC)- Primary End stage renal disease documented in this encounter Additional Health Concerns Assessment Noted Time PHQ-9 Depression Total Score: 0 12/06/19 18 3:00 PM EDT documented as of this encounter Care Teams [employer] Salesperson Relationship Specialty Start Date End Date Edgar Fournier MD [address] [place] [address] [place] [address] PCP - General 12/22/21 Maile Valles, RN Txp Post Coordinator Transplant Hepatology 11/07/17 Jack Ordoñez MD [address] [place] [phone] Consulting Physician Transplant Hepatology 01/05/18 Estephania Sharif, PharmD Pharmacist Pharmacist 11/11/19 documented as of this encounter
--- OUTSIDE RECORDS SUMMARY | 2024-07-12 12:22 | XMS_ITS ---
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 Temperature 36.7 ??C (98 ??F) 04/28/2024 8:00 AM EDT Respiratory Rate 16 04/28/2024 11:00 AM EDT Oxygen Saturation 95% 04/28/2024 12:00 PM EDT Inhaled Oxygen Concentration 95% 04/28/2024 1 2:00 PM EDT Weight 137 kg (302 lb) 05/21/2024 12:30 PM EDT Height 175.3 cm (5' 9 ) 04/28/2024 1:30 AM EDT Body Mass Index 44.6 04/28/2024 1:30 AM EDT Results * Echo Stress Pharmacologic w/Contrast (05/21/2024 2:18 PM EDT) 05/21/2024 11:5 6 AM EDT Narrative [facility] - 05/22/2024 8:31 AM EDT ??* [facility] - Echocardiology Lab* ?[address], [address] ? [place], [place] [address] ? Stress Echocardiogram Patient: ? Eh Aiden W ? Room: ?? STRESS LAB Height: 69in MR Number: ? [id number] ?: ?1975 Weight: 291.9lb Account: ? [id number] ?Gender: M ?BP: ? Study Date: ?05/21/2024 ?Age: ?49 ? BSA: ?2.6m^2 Referring physician: ?Marcelino Montalvo Iii Interpreting physician: Mohinder Miller PERFORMING ?? [facility]-Mohinder Miller [employer]PERATIONS MANAGER ??Maru Neff ORDERING ? Marcelino Montalvo Iii REFERRING ?Marcelino Montalvo Iii ATTENDING ?Marcelino Montalvo Iii Procedure:ECHO STRESS PHARMACOLOGIC WITH ?? Order: Accession CONTRAST ?Number:[id number] Indications: ?ESRD (end stage renal disease) (N18.6). Study data: ??Height: 69in. 175.3cm. Weight: 291.9lb. 132.4kg. Comparison was made to the study of 11/07/2023. ??Study status: ??Routine. ??Consent: ??The risks, benefits, and alternatives to the procedure were explained to the patient and informed consent was obtained. ??Procedure: ??The patient arrived at the laboratory. A baseline ECG was recorded. Intravenous access was obtained. Surface ECG leads and manual cuff blood pressure measurements were monitored. ??Dobutamine stress test was performed. Stress testing was performed in the absence of beta blocking medication. Dobutamine was administered5; the rate was advanced to 50. Heart rate response was augmented by the addition of hand library clerical assistant. The infusion was terminated target heart rate achievement. Exercise testing was performed. The patient exercised for 15 min. A transthoracic stress echocardiogram was performed. Image quality was poor. The study was technically limited due to poor acoustic window availability. Images were captured at baseline, low dose, peak dose, and recovery. Intravenous contrast agitated saline and Optison was administered. ??Study completion: ??There were no complications. Dobutamine. Stress echocardiogram. ??2D. ??Birthdate: ??Patient birthdate: 1975. ??Age: ??Patient is 49year(s) old. ??Sex: ?? gender: male. Body mass index: ??BMI: 43.1kg/m^2. ??Body surface area: ?BSA: 2.6m^2. Blood pressure: ? 172/86 ??Patient status: ??Outpatient. ??Study date: ??Study date: 05/21/2024. Study time: 11:56 AM. ??Location: ??Echo laboratory. Study Conclusions - Left ventricle: Systolic function is normal. The estimated ejection ??fraction is 50-55%. - Right ventricle: Systolic function is normal. TAPSE: 1.8cm. - Stress ECG conclusions: There are no stress arrhythmias or conduction ??abnormalities. The stress ECG is normal. - Staged echo conclusions: There was no echocardiographic evidence for ??stress-induced ischemia. Impressions: ??No evidence of ischemia after pharmacological stress. Cardiac Anatomy Left ventricle: - Systolic function is normal. The estimated ejection fraction is 50-55%. Aortic valve: - Trileaflet The mean systolic gradient is 7mm Hg. The peak systolic ??gradient is 13mm Hg. The LVOT to aortic valve VTI ratio is 0.63. The valve ??area is 1.9cm^2. The valve area index is 0.71cm^2/m^2. The ratio of LVOT ??to aortic valve peak velocity is 0.61. The valve area is 1.8cm^2. The ??valve area index is 0.71cm^2/m^2. The ratio of LVOT to aortic valve mean ??velocity is 0.64. The valve area is 1.7cm^2. The valve area index is ??0.67cm^2/m^2. Mitral valve: - The valve is The valve appears to be grossly normal. normal. The mean ??diastolic gradient is 5mm Hg. The peak diastolic gradient is 12mm Hg. The ??valve area is 1.7cm^2. The valve area index is 0.65cm^2/m^2. The valve ??area by pressure half-time is 6.9cm^2. The valve area index by pressure ??half-time is 2.63cm^2/m^2. The valve area (LVOT continuity) is 1.5cm^2. ??The valve area index (LVOT continuity) is 0.59cm^2/m^2. Left atrium: ??Poorly visualized. Right ventricle: - Poorly visualized. The cavity size is normal. Wall thickness is normal. ??Systolic function is normal. TAPSE: 1.8cm. Pulmonic valve: - The peak systolic gradient is 3mm Hg. Tricuspid valve: - Poorly visualized. The valve appears to be grossly normal. Right atrium: ??Poorly visualized. Systemic veins: Inferior vena cava: Stress protocol: + +---+ + + !Stage ?!HR !BP ? !Symptoms ? ! + +---+ + + !Baseline ? !102!187/98 (128) !No symptoms. ? ! + +---+ + + !Dobutamine 5 ug/kg/min !96 !190/125 (147)! ! + +---+ + + !Dobutamine 10 ug/kg/min!102!180/100 (127)! ! + +---+ + + !Dobutamine 20 ug/kg/min!123!180/80 (113) !Nausea. ?! + +---+ + + !Dobutamine 30 ug/kg/min!131!180/80 (113) ! ! + +---+ + + !Dobutamine 40 ug/kg/min!142!180/78 (112) !Trobbing in neck.! + +---+ + + !Dobutamine 50 ug/kg/min!146! ! ! + +---+ + + !Immediate post stress ??!146! ! ! + +---+ + + !Recovery; 1 min ?!146! ! ! + +---+ + + !Recovery; 2 min ?!139! ! ! + +---+ + + !Recovery; 3 min ?!136! ! ! + +---+ + + !Recovery; 4 min ?!133! ! ! + +---+ + + !Recovery; 5 min ?!131! ! ! + +---+ + + !Recovery; 6 min ?!122! ! ! + +---+ + + !Recovery; 7 min ?!117! ! ! + +---+ + + Stress results: ?? Maximal heart rate during stress was 146bpm (86% of maximal predicted heart rate). The maximal predicted heart rate was 170bpm. The target heart rate was 145bpm. The target heart rate was achieved. The heart rate response to stress is normal. There is a normal resting blood pressure with an appropriate response to stress. The rate-pressure product for the peak heart rate and blood pressure was 29483jx Hg/min. ??Stress testing did not produce any symptoms suggestive of coronary artery disease. Baseline ECG: Normal with IVCD. Normal. ECG interpretation: ??There are no stress arrhythmias or conduction abnormalities. ??The stress ECG is normal. Imaging performed. Imaging performed. Imaging performed. Imaging performed. Baseline: Left ventricle: ??Cavity size is normal. Systolic function is normal. Normal wall motion; no regional wall motion abnormalities. Low dose: Left ventricle: ??Cavity size is normal. Systolic function is normal. Normal wall motion; no regional wall motion abnormalities. Peak stress: Left ventricle: ??Cavity size is reduced appropriately. Systolic function is normal. Normal wall motion; no regional wall motion abnormalities. Recovery: Left ventricle: ??Cavity size is normal. Systolic function is normal. Normal wall motion; no regional wall motion abnormalities. Echo interpretations: ? Left ventricular ejection fraction was normal at rest and with stress. Stress echo results: ? There was no echocardiographic evidence for stress-induced ischemia. Measurements Left ventricle ? Value ?Ref ? 11/07/2023 GINA, LAX ? (N) 5.4 ? cm ? 4.2 - 5.8 4.1 ESD, LAX ? (H) 4.2 ? cm ? 2.5 - 4.0 3.2 GINA/bsa, LAX ?? (L) 2.1 ? cm/m^2 ?? 2.2 - 3.0 1.7 ESD/bsa, LAX ?? (N) 1.6 ? cm/m^2 ?? 1.3 - 2.1 1.3 FS, LAX ?(L) 22 ?% ?25 - 43 ?? 21 FS, LAX chord ??(L) 22 ?% ?25 - 43 ?? 21 IVS, ED ?(H) 1.2 ? cm ? 0.6 - 1.0 0.9 ESD ?(H) 4.2 ? cm ? 2.5 - 4.0 3.2 ESD/bsa ?(N) 1.6 ? cm/m^2 ?? 1.3 - 2.1 1.3 FS ? (L) 22 ?% ?25 - 43 ?? PW, ED ? (N) 1.0 ? cm ? 0.6 - 1.0 0.9 IVS/PW, ED ? 1.23 ? --------- 1.01 ESV ?(H) 77 ?ml ? 21 - 61 ?? 41 EF ? (L) 44 ?% ?52 - 72 ?? 43 SV ? 77 ?ml ? --------- ESV/bsa ?(N) 30 ?ml/m^2 ?? 11 - 31 ?? 17 SV/bsa ? 30 ?ml/m^2 ?? --------- SV, 1-p A2C ?61 ?ml ? --------- 31 SV/bsa, 1-p ?23.6 ?ml/m^2 ?? --------- 13 A2C SV, 1-p A4C ?81 ?ml ? --------- 34 SV/bsa, 1-p ?31 ?ml/m^2 ?? --------- 14 A4C E', lat denilson, ?? (N) 13.5 ?cm/sec ?? >=10.0 ?9.4 TDI E/e', lat denilson, (N) 11 ? <=13 ?12 TDI A', lat denilson, ? 7.0 ? cm/sec ?? --------- 9.6 TDI E'/a', lat ? 1.93 ? --------- 0.98 denilson, TDI S', lat denilson, ? 6.0 ? cm/sec ?? --------- 8.3 TDI E', med denilson, ?? (N) 9.6 ? cm/sec ?? >=7.0 ? 6.4 TDI E/e', med denilson, ? 16 ? --------- 17 TDI A', med denilson, ? 5.0 ? cm/sec ?? --------- 7.5 TDI E'/a', med ? 1.92 ? --------- 0.85 denilson, TDI S', med denilson, ? 5.0 ? cm/sec ?? --------- 8.4 TDI E', avg, TDI ? 11.6 ?cm/sec ?? --------- 7.9 E/e', avg, TDI (N) 13 ? <=14 ?14 LVOT ? Value ?Ref ? 11/07/2023 Diam, S ?1.9 ? cm ? --------- Area ? 2.7 ? cm^2 ? --------- Peak cesilia, S ?1.11 ?m/sec ?--------- Mean cesilia, S ?0.83 ?m/sec ?--------- Peak grad, S ? 5 ? mm Hg ?--------- Mean grad, S ? 4 ? mm Hg ?--------- Right ?Value ?Ref ? 11/07/2023 ventricle GINA, LAX ? 4.3 ? cm ? --------- S' lateral ? (N) 9.5 ? cm/sec ?? >=9.5 ? 11.6 RVOT ? Value ?Ref ? 11/07/2023 Peak v, S ?0.99 ?m/sec ?--------- 0.91 Peak grad, S ? 4 ? mm Hg ?--------- Left atrium ?Value ?Ref ? 11/07/2023 LA ID ?4.9 ? cm ? --------- SI dim, A4C ?7.2 ? cm ? --------- Area ES, A4C ?? (H) 27 ?cm^2 ? <=20 ? Area/bsa ES, ? 10.27 ?? cm^2/m^2 --------- A4C Area ES, A2C ? 26 ?cm^2 ? --------- Area/bsa ES, ? 10.14 ?? cm^2/m^2 --------- A2C SI dim, A2C ?6.2 ? cm ? --------- SI dim, ?6.2 ? cm ? --------- shorter Vol, S ? (H) 97 ?ml ? 18 - 58 ?? Vol/bsa, S ? (H) 37 ?ml/m^2 ?? 16 - 34 ?? Vol, ES, 1-p ?? (H) 78 ?ml ? 18 - 58 ?? A4C Vol/bsa, ES, ?? (N) 30 ?ml/m^2 ?? 12 - 37 ?? 1-p A4C Vol, ES, 1-p ?? (H) 91 ?ml ? 18 - 58 ?? A2C Vol/bsa, ES, ?? (N) 35 ?ml/m^2 ?? 11 - 43 ?? 1-p A2C Vol, ES, 2-p ? 97 ?ml ? --------- Vol/bsa, ES, ?? (H) 37 ?ml/m^2 ?? 16 - 34 ?? 2-p Vol, ES, A/L ? 97 ?ml ? --------- Vol/bsa, ES, ?? (H) 37 ?ml/m^2 ?? 16 - 34 ?? A/L Right atrium ? Value ?Ref ? 11/07/2023 Area, ES, A4C ??(H) 24 ?cm^2 ? 10 - 18 ?? Aortic valve ? Value ?Ref ? 11/07/2023 Peak v, S ?1.8 ? m/sec ?--------- 2.2 Mean v, S ?1.29 ?m/sec ?--------- 1.44 Mean grad, S ? 7 ? mm Hg ?--------- 10 Peak grad, S ? 13 ?mm Hg ?--------- 19 LVOT/AV, VTI ? 0.63 ? --------- ratio LEO, VTI ? 1.9 ? cm^2 ? --------- LEO/bsa, VTI ? 0.71 ?cm^2/m^2 --------- LVOT/AV, Vpeak ? 0.61 ? --------- ratio LEO, Vmax ?1.8 ? cm^2 ? --------- LEO/bsa, Vmax ?0.71 ?cm^2/m^2 --------- LVOT/AV, Vmean ? 0.64 ? --------- ratio LEO, Vmean ? 1.7 ? cm^2 ? --------- LEO/bsa, Vmean ? 0.67 ?cm^2/m^2 --------- Mitral valve ? Value ?Ref ? 11/07/2023 Mean v, D ?1.03 ?m/sec ?--------- Peak E ? 1.5 ? m/sec ?--------- 1.1 Peak A ? 0.23 ?m/sec ?--------- 1.03 VTI leaflet ?32.4 ?cm ? --------- coapt MiV/LVOT VTI ? 1.6 ?--------- Decel slope ?1352.08 cm/s^2 ?? --------- 535 Decel time ? 111 ? ms ? --------- 207 PHT ?32 ?ms ? --------- 61 Mean grad, D ? 5 ? mm Hg ?--------- Peak grad, D ? 12 ?mm Hg ?--------- 5 Peak E/A ratio ? 6.6 ?--------- 1.1 MVA ?1.7 ? cm^2 ? --------- MVA/bsa ?0.65 ?cm^2/m^2 --------- MVA, PHT ? 6.9 ? cm^2 ? --------- 3.6 MVA/bsa, PHT ? 2.63 ?cm^2/m^2 --------- 1.5 MVA, LVOT cont ? 1.5 ? cm^2 ? --------- MVA/bsa, LVOT ?0.59 ?cm^2/m^2 --------- cont Pulmonic valve ? Value ?Ref ? 11/07/2023 Peak v, S ?0.9 ? m/sec ?--------- 1.3 Accel time ? 118 ? ms ? --------- Peak grad, S ? 3 ? mm Hg ?--------- Tricuspid ?Value ?Ref ? 11/07/2023 valve TR peak v ?(H) 3.1 ? m/sec ?<=2.8 ? 3.1 Peak RV-RA ? 39 ?mm Hg ?--------- 39 grad, S Ascending ?Value ?Ref ? 11/07/2023 aorta AAo AP diam, S ? 3.1 ? cm ? --------- AAo AP ? 1.2 ? cm/m^2 ?? --------- diam/bsa, S Inferior vena ?Value ?Ref ? 11/07/2023 cava Diam ? (N) 2.0 ? cm ? <=2.1 ? 1.8 Legend: (L) ??and ??(H) ??krunal values outside specified reference range. (N) ??moran values inside specified reference range. Reviewed and confirmed by Mohinder Miller [id number] Procedure Note Mohinder Miller MD - 05/22/2024 * [facility] - Echocardiology[facility]* [address] [facility], [place] [address] Stress Echocardiogram Patient: Aidne Stauffer Room: STRESS LAB Height: 69in MR Number: [id number] : 1975 Weight: 291.9lb Account: [id number] Gender: M BP: 172 / 86 Study Date: 05/21/2024 Age: 49 BSA: 2.6m^2 Referring physician: Marcelino Montalvo Iii Interpreting physician: Mohinder Miller PERFORMING [facility]-Mohinder Miller [employer]PER[employer] MANAGER Maru Neff ORDERING Marcelino Montalvo Iii REFERRING Marcelino Montalvo Iii ATTENDING Marcelino Montalvo Iii Procedure:ECHO STRESS PHARMACOLOGIC WITH Order: Accession CONTRAST Number:[id number] Indications: ESRD (end stage renal disease) (N18.6). Study data: Height: 69in. 175.3cm. Weight: 291.9lb. 132.4kg. Comparisonwas made to the study of 11/07/2023. Study status: Routine. Consent: The risks, benefits, and alternatives to the procedure were explained to the patient and informed consent was obtained. Procedure: The patientarrived at the laboratory. A baseline ECG was recorded. Intravenous access was obtained. Surface ECG leads and manual cuff blood pressure measurementswere monitored. Dobutamine stress test was performed. Stress testing was performed in the absence of beta blocking medication. Dobutamine was administered5; the rate was advanced to 50. Heart rate response was augmented by the addition of hand library clerical assistant. The infusion was terminatedtarget heart rate achievement. Exercise testing was performed. The patient exercised for 15 min. A transthoracic stress echocardiogram wasperformed. Image quality was poor. The study was technically limited due to poor acoustic window availability. Images were captured at baseline, lowdose, peak dose, and recovery. Intravenous contrast agitated saline andOptison was administered. Study completion: There were no complications. Dobutamine. Stress echocardiogram. 2D. Birthdate: Patient birthdate: 1975. Age: Patient is 49year(s) old. Sex: gender: male. Body mass index: BMI: 43.1kg/m^2. Body surface area: BSA: 2.6m^2. Blood pressure: 172/86 Patient status: Outpatient. Study date:Study date: 05/21/2024. Study time: 11:56 AM. Location: Echo laboratory. Study Conclusions - Left ventricle: Systolic function is normal. The estimated ejection fraction is 50-55%. - Right ventricle: Systolic function is normal. TAPSE: 1.8cm. - Stress ECG conclusions: There are no stress arrhythmias or conduction abnormalities. The stress ECG is normal. - Staged echo conclusions: There was no echocardiographic evidence for stress-induced ischemia. Impressions: No evidence of ischemia after pharmacological stress. Cardiac Anatomy Left ventricle: - Systolic function is normal. The estimated ejection fraction is50-55%. Aortic valve: - Trileaflet The mean systolic gradient is 7mm Hg. The peak systolic gradient is 13mm Hg. The LVOT to aortic valve VTI ratio is 0.63. Thevalve area is 1.9cm^2. The valve area index is 0.71cm^2/m^2. The ratio ofLVOT to aortic valve peak velocity is 0.61. The valve area is 1.8cm^2. The valve area index is 0.71cm^2/m^2. The ratio of LVOT to aortic valvemean velocity is 0.64. The valve area is 1.7cm^2. The valve area index is 0.67cm^2/m^2. Mitral valve: - The valve is The valve appears to be grossly normal. normal. The mean diastolic gradient is 5mm Hg. The peak diastolic gradient is 12mm Hg.The valve area is 1.7cm^2. The valve area index is 0.65cm^2/m^2. The valve area by pressure half-time is 6.9cm^2. The valve area index bypressure half-time is 2.63cm^2/m^2. The valve area (LVOT continuity) is1.5cm^2. The valve area index (LVOT continuity) is 0.59cm^2/m^2. Left atrium: Poorly visualized. Right ventricle: - Poorly visualized. The cavity size is normal. Wall thickness isnormal. Systolic function is normal. TAPSE: 1.8cm. Pulmonic valve: - The peak systolic gradient is 3mm Hg. Tricuspid valve: - Poorly visualized. The valve appears to be grossly normal. Right atrium: Poorly visualized. Systemic veins: Inferior vena cava: Stress protocol: + +---+ + + !Stage !HR !BP !Symptoms ! + +---+ + + !Baseline !102!187/98 (128) !No symptoms. ! + +---+ + + !Dobutamine 5 ug/kg/min !96 !190/125 (147)! ! + +---+ + + !Dobutamine 10 ug/kg/min!102!180/100 (127)! ! + +---+ + + !Dobutamine 20 ug/kg/min!123!180/80 (113) !Nausea. ! + +---+ + + !Dobutamine 30 ug/kg/min!131!180/80 (113) ! ! + +---+ + + !Dobutamine 40 ug/kg/min!142!180/78 (112) !Trobbing in neck.! + +---+ + + !Dobutamine 50 ug/kg/min!146! ! ! + +---+ + + !Immediate post stress !146! ! ! + +---+ + + !Recovery; 1 min !146! ! ! + +---+ + + !Recovery; 2 min !139! ! ! + +---+ + + !Recovery; 3 min !136! ! ! + +---+ + + !Recovery; 4 min !133! ! ! + +---+ + + !Recovery; 5 min !131! ! ! + +---+ + + !Recovery; 6 min !122! ! ! + +---+ + + !Recovery; 7 min !117! ! ! + +---+ + + Stress results: Maximal heart rate during stress was 146bpm (86% of maximal predicted heart rate). The maximal predicted heart rate [id number]. The target heart rate was 145bpm. The target heart rate was achieved.The heart rate response to stress is normal. There is a normal resting blood pressure with an appropriate response to stress. The rate-pressureproduct for the peak heart rate and blood pressure was [id number] Hg/min. Stress testing did not produce any symptoms suggestive of coronary arterydisease. Baseline ECG: Normal with IVCD. Normal. ECG interpretation: There are no stress arrhythmias or conduction abnormalities. The stress ECG is normal. Imaging performed. Imaging performed. Imaging performed. Imaging performed. Baseline: Left ventricle: Cavity size is normal. Systolic function is normal.Normal wall motion; no regional wall motion abnormalities. Low dose: Left ventricle: Cavity size is normal. Systolic function is normal.Normal wall motion; no regional wall motion abnormalities. Peak stress: Left ventricle: Cavity size is reduced appropriately. Systolic functionis normal. Normal wall motion; no regional wall motion abnormalities. Recovery: Left ventricle: Cavity size is normal. Systolic function is normal.Normal wall motion; no regional wall motion abnormalities. Echo interpretations: Left ventricular ejection fraction was normalat rest and with stress. Stress echo results: There was no echocardiographic evidence for stress-induced ischemia. Measurements Left ventricle Value Ref 11/07/2023 GINA, LAX (N) 5.4 cm 4.2 - 5.8 4.1 ESD, LAX (H) 4.2 cm 2.5 - 4.0 3.2 GINA/bsa, LAX (L) 2.1 cm/m^2 2.2 - 3.0 1.7 ESD/bsa, LAX (N) 1.6 cm/m^2 1.3 - 2.1 1.3 FS, LAX (L) 22 % 25 - 43 21 FS, LAX chord (L) 22 % 25 - 43 21 IVS, ED (H) 1.2 cm 0.6 - 1.0 0.9 ESD (H) 4.2 cm 2.5 - 4.0 3.2 ESD/bsa (N) 1.6 cm/m^2 1.3 - 2.1 1.3 FS (L) 22 % 25 43 PW, ED (N) 1.0 cm 0.6 - 1.0 0.9 IVS/PW, ED 1.23 --------- 1.01 ESV (H) 77 ml 21 - 61 41 EF (L) 44 % 52 - 72 43 SV 77 ml --------- ESV/bsa (N) 30 ml/m^2 11 - 31 17 SV/bsa 30 ml/m^2 --------- SV, 1-p A2C 61 ml --------- 31 SV/bsa, 1-p 23.6 ml/m^2 --------- 13 A2C SV, 1-p A4C 81 ml --------- 34 SV/bsa, 1-p 31 ml/m^2 --------- 14 A4C E', lat denilson, (N) 13.5 cm/sec >=10.0 9.4 TDI E/e', lat denilson, (N) 11 <=13 12 TDI A', lat denilson, 7.0 cm/sec --------- 9.6 TDI E'/a', lat 1.93 --------- 0.98 denilson, TDI S', lat denilson, 6.0 cm/sec --------- 8.3 TDI E', med denilson, (N) 9.6 cm/sec >=7.0 6.4 TDI E/e', med denilson, 16 --------- 17 TDI A', med denilson, 5.0 cm/sec --------- 7.5 TDI E'/a', med 1.92 --------- 0.85 denilson, TDI S', med denilson, 5.0 cm/sec --------- 8.4 TDI E', avg, TDI 11.6 cm/sec --------- 7.9 E/e', avg, TDI (N) 13 <=14 14 LVOT Value Ref 11/07/2023 Diam, S 1.9 cm --------- Area 2.7 cm^2 --------- Peak cesilia, S 1.11 m/sec --------- Mean cesilia, S 0.83 m/sec --------- Peak grad, S 5 mm Hg --------- Mean grad, S 4 mm Hg --------- Right Value Ref 11/07/2023 ventricle GINA, LAX 4.3 cm --------- S' lateral (N) 9.5 cm/sec >=9.5 11.6 RVOT Value Ref 11/07/2023 Peak v, S 0.99 m/sec --------- 0.91 Peak grad, S 4 mm Hg --------- Left atrium Value Ref 11/07/2023 LA ID 4.9 cm --------- SI dim, A4C 7.2 cm --------- Area ES, A4C (H) 27 cm^2 <=20 Area/bsa ES, 10.27 cm^2/m^2 --------- A4C Area ES, A2C 26 cm^2 --------- Area/bsa ES, 10.14 cm^2/m^2 --------- A2C SI dim, A2C 6.2 cm --------- SI dim, 6.2 cm --------- shorter Vol, S (H) 97 ml 18 - 58 Vol/bsa, S (H) 37 ml/m^2 16 - 34 Vol, ES, 1-p (H) 78 ml 18 - 58 A4C Vol/bsa, ES, (N) 30 ml/m^2 12 - 37 1-p A4C Vol, ES, 1-p (H) 91 ml 18 - 58 A2C Vol/bsa, ES, (N) 35 ml/m^2 11 - 43 1-p A2C Vol, ES, 2-p 97 ml --------- Vol/bsa, ES, (H) 37 ml/m^2 16 - 34 2-p Vol, ES, A/L 97 ml --------- Vol/bsa, ES, (H) 37 ml/m^2 A/L Right atrium Value Ref 11/07/2023 Area, ES, A4C (H) 24 cm^2 10 - 18 Aortic valve Value Ref 11/07/2023 Peak v, S 1.8 m/sec --------- 2.2 Mean v, S 1.29 m/sec --------- 1.44 Mean grad, S 7 mm Hg --------- 10 Peak grad, S 13 mm Hg --------- 19 LVOT/AV, VTI 0.63 --------- ratio LEO, VTI 1.9 cm^2 --------- LEO/bsa, VTI 0.71 cm^2/m^2 --------- LVOT/AV, Vpeak 0.61 --------- ratio LEO, Vmax 1.8 cm^2 --------- LEO/bsa, Vmax 0.71 cm^2/m^2 --------- LVOT/AV, Vmean 0.64 --------- ratio LEO, Vmean 1.7 cm^2 --------- LEO/bsa, Vmean 0.67 cm^2/m^2 --------- Mitral valve Value Ref 11/07/2023 Mean v, D 1.03 m/sec --------- Peak E 1.5 m/sec --------- 1.1 Peak A 0.23 m/sec --------- 1.03 VTI leaflet 32.4 cm --------- coapt MiV/LVOT VTI 1.6 --------- Decel slope 1352.08 cm/s^2 --------- 535 Decel time 111 ms --------- 207 PHT 32 ms --------- 61 Mean grad, D 5 mm Hg --------- Peak grad, D 12 mm Hg --------- 5 Peak E/A ratio 6.6 --------- 1.1 MVA 1.7 cm^2 --------- MVA/bsa 0.65 cm^2/m^2 --------- MVA, PHT 6.9 cm^2 --------- 3.6 MVA/bsa, PHT 2.63 cm^2/m^2 --------- 1.5 MVA, LVOT cont 1.5 cm^2 --------- MVA/bsa, LVOT 0.59 cm^2/m^2 --------- cont Pulmonic valve Value Ref 11/07/2023 Peak v, S 0.9 m/sec --------- 1.3 Accel time 118 ms --------- Peak grad, S 3 mm Hg --------- Tricuspid Value Ref 11/07/2023 valve TR peak v (H) 3.1 m/sec <=2.8 3.1 Peak RV-RA 39 mm Hg --------- 39 grad, S Ascending Value Ref 11/07/2023 aorta AAo AP diam, S 3.1 cm --------- AAo AP 1.2 cm/m^2 --------- diam/bsa, S Inferior vena Value Ref 11/07/2023 cava Diam (N) 2.0 cm <=2.1 1.8 Legend: (L) and (H) krunal values outside specified reference range. (N) moran values inside specified reference range. Reviewed and confirmed by Mohinder Miller [id number] us Marcelino Montalvo III, MD CV ECHO ORDERABLES Final Result [facility] * EKG - scan (04/29/2024 7:45 AM EDT) Only the most recent of3 resultswithin the time period is included. us Scanning [facility] SCAN DOCS - NO RESULTS Final Res ult * (ABNORMAL) Renal Function Panel w/EGFR (04/28/2024 6:58 AM EDT) Only the most recent of3 resultswithin the time period is included. Sodium 138 133 - 146 mmol/L 04/28/2024 7:32 AM EDT [facility] Potassium 3.9 3.5 - 5.3 mmol/L 04/28/2024 7:32 AM EDT [facility] Chloride 101 98 - 110 mmol/L 04/28/2024 7:32 AM EDT [facility] CO2 25 21 - 33 mmol/L 04/28/2024 7:32 AM EDT [facility] Anion Gap 12 3 - 16 mmol/L 04/28/2024 7:32 AM EDT [facility] BUN 31(H) 7 - 25 mg/dL 04/28/2024 7:32 AM EDT [facility] Creatinine 6.52(H) 0.60 - 1.30 mg/dL 04/28/2024 7:32 AM EDT [facility] Glucose 102(H) 70 - 100 mg/dL 04/28/2024 7:32 AM EDT [facility] Calcium 8.7 8.6 - 10.3 mg/dL 04/28/2024 7:32 AM EDT [facility] Phosphorus 2.2 2.1 - 4.7 mg/dL 04/28/2024 7:32 AM EDT [facility] Albumin 4.4 3.5 - 5.7 g/dL 04/28/2024 7:32 AM EDT [facility] Osmolality, Calculated 293 278 - 305 mOsm/kg 04/28/2024 7:32 AM EDT [facility] EGFR 10 04/28/2024 7:32 AM EDT [facility] Comment:As of 2021, the estimated GFR is calculated using the 2020 Chronic Kidney Disease Epidemiology Collaboration (CKD-EPI) equation. In line with the NKF-ASN Task Force Recommendations, this equation does not include a coefficient for race. A single eGFR value is calculated for each patient. The reference interval is >60 mL/min/1.73m2. eGFR values greater than 90 will be reported as >90mL/min/1.73m2. Reference: Simone C, Delbert M, Greg DC, Felice ND, Kulwinder CA, Dorcas LA, et al. A Unifying Approach for GFR Estimation: Recommendations of the NKF-ASN Task Force on Reassessing the inclusion of Race in Diagnosing Kidney Disease. Am J Kidney Dis. 2020. Plasma 04/28/2024 6:58 AM EDT 04/28/2024 7:01 AM EDT us Flaco Blair MD LAB BLOOD ORDERABLES Final Resul t [facility] [address] [place], [place] [address] * (ABNORMAL) CBC (04/28/2024 6:58 AM EDT) Only the most recent of4 resultswithin the time period is included. WBC 5.7 3.8 - 10.8 10E3/uL 04/28/2024 7:08 AM EDT [facility] RBC 2.89(L) 4.20 - 5.80 10E6/uL 04/28/2024 7:08 AM EDT [facility] Hemoglobin 9.6(L) 13.2 - 17.1 g/dL 04/28/2024 7:08 AM EDT [facility] Hematocrit 28.8(L) 38.5 - 50.0 % 04/28/2024 7:08 AM EDT [facility] MCV 99.6 80.0 - 100.0 fL 04/28/2024 7:08 AM EDT [facility] MCH 33.4(H) 27.0 - 33.0 pg 04/28/2024 7:08 AM EDT [facility] MCHC 33.5 32.0 - 36.0 g/dL 04/28/2024 7:08 AM EDT [facility] RDW 17.4(H) 11.0 - 15.0 % 04/28/2024 7:08 AM EDT [facility] Platelets 317 140 - 400 10E3/uL 04/28/2024 7:08 AM EDT [facility] MPV 7.4(L) 7.5 - 11.5 fL 04/28/2024 7:08 AM EDT [facility] Whole Blood 04/28/2024 6:58 AM EDT 04/28/2024 7:01 AM EDT us Flaco Blair MD LAB BLOOD ORDERABLES Final Resul t Performing Organization Address City/State/[facility] Co de Phone Number [facility] [address] * Magnesium (04/28/2024 6:58 AM EDT) Only the most recent of4 resultswithin the time period is included. Magnesium 1.9 1.5 - 2.5 mg/dL 04/28/2024 7:32 AM EDT [facility] Plasma 04/28/2024 6:58 AM EDT 04/28/2024 7:01 AM EDT us Flaco Blair MD LAB BLOOD ORDERABLES Final Resul t [facility] [address] * RACHAEL Rhythm Strip - Scan (04/28/2024 4:52 AM EDT) Only the most recent of3 resultswithin the time period is included. us Scanning Uchhim SCAN DOCS - NO RESULTS Final Res ult * POC Glucose Monitoring Device (04/28/2024 3:08 AM EDT) Only the most recent of14 resultswithin the time period is included. POC Glucose Monitoring Device 95 70 - 100 mg/dL 04/28/2024 3:09 AM EDT [facility] Blood 04/28/2024 3:08 AM EDT 04/28/2024 3:09 AM EDT us Lilia Olivares DO POINT OF CARE TEST ORDERABLE S Final Result Performing Organization Address [facility] [address] [facility]/ZIP Co de Phone Number [facility] [address] [facility]. [address] * (ABNORMAL) Potassium (04/27/2024 11:51 PM EDT) Potassium 6.3(HH) 3.5 - 5.3 mmol/L 04/28/2024 12:18 AM EDT [facility] Comment:Critical Result K:6. 3 Called to and read back by: SALO TEJADA RN at: 04/28/2024 00:18:15 by:MALDONADO Plasma 04/27/2024 11:5 1 PM EDT 04/27/2024 11:57 PM EDT us Denilson Dunham MD LAB BLOOD ORDERABLES Final Resul t Performing Organization Address City/[facility] [address]/ZIP Co de Phone Number [facility] [address] * X-ray Portable Chest (04/27/2024 10:41 PM EDT) Anatomical Region Laterality Modality Chest Radiographic Sobia ging 04/27/2024 10:0 6 PM EDT Impressions 04/27/2024 11:05 PM EDT IMPRESSION: Findings of mild pulmonary edema. Report Verified by: Earnest Gonzalez DO at 04/27/2024 11:05 PM EDT Narrative 04/27/2024 11:05 PM EDT EXAM: XR PORTABLE CHEST INDICATION: Shortness of [...] Bones and soft tissues: No acute abnormalities. Procedure Note Bob Gonzalez DO - 04/27/2024 EXAM: XR PORTABLE CHEST INDICATION: Shortness of breath TECHNIQUE: 1 view of the chest. COMPARISON: 11/04/2023. FINDINGS: Medical Devices: Left-sided central venous catheter tip overlies the lowerSVC.. Heart and Mediastinum: Unchanged. Lungs and Pleura: Low lung volumes. Indistinct pulmonary vasculature.Perihilar and bibasilar parenchymal opacities. Left basilar parenchymaopacities. Meniscus in the left lateral lower lung zone, may related topleural effusion or pericardial fat pad. No pneumothorax Bones and soft tissues: No acute abnormalities. IMPRESSION: Findings of mild pulmonary edema. Report Verified by: Earnest Gonzalez DO at 04/27/2024 11:05 PM EDT Denilson Dunham MD [facility] ORDERABLE S Final Result * ECG for indication of dysrhythmia (04/27/2024 10:29 PM EDT) Only the most recent of2 resultswithin the time period is included. 04/27/2024 10:2 9 PM EDT Narrative MUSE - 04/29/2024 8:45 AM EDT Ventricular Rate: ??69 ??BPM Atrial Rate: ??69 ??BPM P-R Interval: ??230 ??ms QRS Duration: ??114 ??ms QT: ??420 ??ms QTc: ??450 ??ms P [place]: ??56 ??degrees R [place]: ??63 ??degrees T [place]: ??72 ??degrees Diagnosis Line: ??INTERPRETATION NOT AVAILABLE--ECG READ IN ER ^ ??^ Confirmed by PHYSICIAN, ER ([id number]), assistant editor Irasema Ellis ([id number]) on 04/29/2024 8:45:21 AM us Denilson Dunham MD ECG ORDERABLES Final Result MUSE * (ABNORMAL) Differential (04/27/2024 8:59 PM EDT) Differential Comments See Note 04/27/2024 9:49 PM EDT [facility] Comment: _Platelets Appear Adequate _Platelet Morphology Normal Myelocytes Relative 5.0(H) 0.0 - 0.0 % 04/27/2024 9:49 PM EDT [facility] Metamyelocytes Relative 1.0(H) 0.0 - 0.0 % 04/27/2024 9:49 PM EDT [facility] Neutrophils Relative 68.0 40.0 - 80.0 % 04/27/2024 9:49 PM EDT [facility] Lymphocytes Relative 17.0 15.0 - 45.0 % 04/27/2024 9:49 PM EDT [facility] Monocytes Relative 4.0 0.0 - 12.0 % 04/27/2024 9:49 PM EDT [facility] Eosinophils Relative 4.0 0.0 - 8.0 % 04/27/2024 9:49 PM EDT [facility] Basophils Relative 1.0 0.0 - 1.0 % 04/27/2024 9:49 PM EDT [facility] nRBC 1(H) 0 - 0 /100 WBC 04/27/2024 9:49 PM EDT [facility] Neutrophils Absolute 5,168 1,500 - 7,800 /uL 04/27/2024 9:49 PM EDT [facility] Metamyelocytes Absolute 76(H) 0 - 0 /uL 04/27/2024 9:49 PM EDT [facility] Myelocytes Absolute 380(H) 0 - 0 /uL 04/27/2024 9:49 PM EDT [facility] Lymphocytes Absolute 1,292 850 - 3,900 /uL 04/27/2024 9:49 PM EDT [facility] Monocytes Absolute 304 200 - 950 /uL 04/27/2024 9:49 PM EDT [facility] Eosinophils Absolute 304 15 - 500 /uL 04/27/2024 9:49 PM EDT [facility] Basophils Absolute 76 0 - 200 /uL 04/27/2024 9:49 PM EDT [facility] PLT Morphology Platelet morphology appears normal 04/27/2024 9:49 PM EDT [facility] Whole Blood 04/27/2024 8:59 PM EDT 04/27/2024 9:09 PM EDT Narrative [facility] - 04/27/2024 9:49 PM EDT Manual WBC differential performed per review criteria approved by the medical officer psychiatry. [employer] LAB BLOOD ORDERABLES Final Res ult [facility] [address] * Phosphorus (04/27/2024 8:59 PM EDT) Only the most recent of2 resultswithin the time period is included. Phosphorus 3.6 2.1 - 4.7 mg/dL 04/27/2024 9:43 PM EDT [facility] Plasma 04/27/2024 8:59 PM EDT 04/27/2024 9:02 PM EDT [email or web address] [facility] LAB BLOOD ORDERABLES Final Res ult [facility] [address] * (ABNORMAL) Basic metabolic panel (04/27/2024 8:59 PM EDT) Only the most recent of2 resultswithin the time period is included. Sodium 138 133 - 146 mmol/L 04/27/2024 9:43 PM EDT [facility] Potassium 6.4(HH) 3.5 - 5.3 mmol/L 04/27/2024 9:43 PM EDT [facility] Chloride 107 98 - 110 mmol/L 04/27/2024 9:43 PM EDT [facility] CO2 16(L) 21 - 33 mmol/L 04/27/2024 9:43 PM EDT [facility] Anion Gap 15 3 - 16 mmol/L 04/27/2024 9:43 PM EDT [facility] BUN 68(H) 7 - 25 mg/dL 04/27/2024 9:43 PM EDT [facility] Creatinine 13.12(H) 0.60 - 1.30 mg/dL 04/27/2024 9:43 PM EDT [facility] Glucose 141(H) 70 - 100 mg/dL 04/27/2024 9:43 PM EDT [facility] Calcium 8.6 8.6 - 10.3 mg/dL 04/27/2024 9:43 PM EDT [facility] Osmolality, Calculated 308(H) 278 - 305 mOsm/kg 04/27/2024 9:43 PM EDT [facility] EGFR 4 04/27/2024 9:43 PM EDT [facility] Comment:As of 2021, the estimated GFR is calculated using the 2020 Chronic Kidney Disease Epidemiology Collaboration (CKD-EPI) equation. In line with the NKF-ASN Task Force Recommendations, this equation does not include a coefficient for race. A single eGFR value is calculated for each patient. The reference interval is >60 mL/min/1.73m2. eGFR values greater than 90 will be reported as >90mL/min/1.73m2. Reference: Simone C, Delbert M, Greg DC, Felice ND, Kulwinder JAY, Dorcas LA, et al. A Unifying Approach for GFR Estimation: Recommendations of the NKF-ASN Task Force on Reassessing the inclusion of Race in Diagnosing Kidney Disease. Am J Kidney Dis. 2020. Plasma 04/27/2024 8:59 PM EDT 04/27/2024 9:02 PM EDT us Rene TOTH LAB BLOOD ORDERABLES Final Res ult [facility] [address] [place] [address], [facility] * IR replace dick Alvarado Cath without port (04/18/2024 10:21 AM EDT) Anatomical Region Laterality Modality Vascular X-Ray Angiograph y 04/18/2024 10:1 9 AM EDT Impressions 04/18/2024 2:47 PM EDT IMPRESSION: 1. Successful exchange of a tunneled, hemodialysis catheter, 27 cm tip-to-cuff, 14.5-F, Glidepath hemodialysis catheter via the left internal jugular vein. ?? 2. Successful balloon maceration and disruption of a fibrin sheath in the central veins, surrounding the existing hemodialysis catheter, using a 12 mm Corryton balloon. ?? Report Verified by: Odette Weston at 04/18/2024 2:47 PM EDT Narrative 04/18/2024 2:47 PM EDT TUNNELED HEMODIALYSIS CATHETER EXCHANGE, SUPERIOR VENA CAVOGRAM AND FIBRIN SHEATH DISRUPTION, dated 04/18/24 Indications: Aiden Stauffer Jr. is a 49 y.o. male with PMH of T2DM, ESRD on HD who was transferred from OSH malfunctioning left IJ approach TDC and found to have hyperkalemia to 6.2. Alteplase failed to reestablish catheter patency. Operators: Odette Weston CNP, derrick operator Wilmer Pederson MD Supervising provider, present for fibrin sheath disruption and venogram, then immediately available thereafter. Carlton Matt, Medical Student year 4 Procedure and Findings: The patient received preprocedure IV antibiotics. ?? The procedure was performed in the VIR suite following informed consent. ??The patient received IV moderate sedation under the supervision and continuous care of a radiology nurse. ??The patient also received 1% lidocaine with epinephrine local anesthesia. ??The left upper chest and existing catheter were prepped and draped in the usual sterile fashion. ?? Heparin was aspirated from each catheter lumen prior to the procedure. ??There was suboptimal blood aspiration from the existing tunneled, hemodialysis catheter. ??The position of the existing dialysis catheter was assessed by fluoroscopy and found to be in an appropriate position. ?? The hemodialysis catheter cuff was mobilized using blunt dissection. A 0.035 inch stiff Amplatz guidewire was passed into the catheter under fluoroscopic guidance. ??The catheter was withdrawn several centimeters and contrast was injected through the hemodialysis catheter. ??There was a fibrin sheath in the superior vena cava region. ?? The existing hemodialysis catheter was exchanged over the guidewire for a 12 mm Mustange balloon. ??The balloon was inflated and the fibrin sheath was macerated and disrupted at multiple levels in the superior vena cava region. ?? The balloon was exchanged over the guidewire for a new hemodialysis catheter under fluoroscopic guidance. ??The tip of the catheter was positioned in the mid-right atrium under fluoroscopic observation. ?? A fluoroscopic image was obtained which confirmed the tip of the catheter was in the mid-right atrium. ?? The catheter aspirated and flushed easily. ??Each lumen was primed with the appropriate volume of heparin 1000 units / mL. ??The hemodialysis catheter was sutured to the skin with 2-0 Ethilon and dressed in the usual fashion with biopatch and sterile caps in place. ?? There were no immediate complications. Fluoroscopy time: ?? 5.5 minutes Procedure Note Odette Weston CNP - 04/18/2024 TUNNELED HEMODIALYSIS CATHETER EXCHANGE, SUPERIOR VENA CAVOGRAM AND FIBRINSHEATH DISRUPTION, dated 04/18/24 Indications: Aiden Stauffer Jr. is a 49 y.o. male with PMH of T2DM, ESRDon HD who was transferred from OS malfunctioning left IJ approach TDC andfound to have hyperkalemia to 6.2. Alteplase failed to reestablishcatheter patency. Operators: Odette Weston CNP, derrick operator Wilmer Pederson MD Supervising provider, present for fibrin sheathdisruption and venogram, then immediately available thereafter. Carlton Matt, Medical Student year 4 Procedure and Findings: The patient received preprocedure IV antibiotics. The procedure was performed in the VIR suite following informed consent.The patient received IV moderate sedation under the supervision andcontinuous care of a radiology nurse. The patient also received 1%lidocaine with epinephrine local anesthesia. The left upper chest andexisting catheter were prepped and draped in the usual sterile fashion. Heparin was aspirated from each catheter lumen prior to the procedure.There was suboptimal blood aspiration from the existing tunneled,hemodialysis catheter. The position of the existing dialysis catheter wasassessed by fluoroscopy and found to be in an appropriate position. The hemodialysis catheter cuff was mobilized using blunt dissection. A0.035 inch stiff Amplatz guidewire was passed into the catheter underfluoroscopic guidance. The catheter was withdrawn several centimeters andcontrast was injected through the hemodialysis catheter. There was afibrin sheath in the superior vena cava region. The existing hemodialysis catheter was exchanged over the guidewire for a12 mm Mustange balloon. The balloon was inflated and the fibrin sheathwas macerated and disrupted at multiple levels in the superior vena cavaregion. The balloon was exchanged over the guidewire for a new hemodialysiscatheter under fluoroscopic guidance. The tip of the catheter waspositioned in the mid-right atrium under fluoroscopic observation. A fluoroscopic image was obtained which confirmed the tip of the catheterwas in the mid-right atrium. The catheter aspirated and flushed easily. Each lumen was primed with theappropriate volume of heparin 1000 units / mL. The hemodialysis catheterwas sutured to the skin with 2-0 Ethilon and dressed in the usual fashionwith biopatch and sterile caps in place. There were no immediate complications. Fluoroscopy time: 5.5 minutes IMPRESSION: 1. Successful exchange of a tunneled, hemodialysis catheter, 27 mbfip-nr-uann, 14.5-F, Glidepath hemodialysis catheter via the left internaljugular vein. 2. Successful balloon maceration and disruption of a fibrin sheath in thecentral veins, surrounding the existing hemodialysis catheter, using a 12mm Corryton balloon. Report Verified by: Odette Weston at 04/18/2024 2:47 PM EDT us Jacinto Pineda MD IMG IR ORDERABLES Final Result * (ABNORMAL) Hemoglobin A1c (04/18/2024 4:32 AM EDT) Hemoglobin A1C 6.5(H) 4.0 - 5.6 % 04/18/2024 11:46 AM EDT [facility] Comment: Hemoglobin A1c Interpretation Guidelines: Normal: ? <5.7% Prediabetes: 5.7-6.4% Diabetes: ?? >6.4% Diagnosis requires two independent tests unless clinical diagnosis is clear. Some clinical conditions, particularly anemias and hemoglobinopathies, may interfere with the diagnostic accuracy of hemoglobin A1c. The recommended goal for diabetic glycemic control (Hemoglobin A1c <7.0%) should be individualized based on duration of diabetes, age/life expectancy, comorbid conditions, known CVD or advanced microvascular complications, hypoglycemia unawareness, and other individual patient considerations. Whole Blood 04/18/2024 4:32 AM EDT 04/18/2024 4:37 AM EDT Ky Hills MD LAB BLOOD ORDERABLES Final Result Performing Organization Address [facility] Co de Phone Number [facility] [address] [place] [address] * Occupational Exposure Screen Reflex (04/17/2024 7:14 PM EDT) HIV-1/HIV-2 Ab Negative Negative 04/17/2024 8:49 PM EDT [facility] Comment:Results called to an d read back by JANA Escobedo. P24 Antigen Negative Negative 04/17/2024 8:49 PM EDT [facility] Comment:Results called to an d read back by JANA Escobedo. Serum 04/17/2024 7:14 PM EDT 04/17/2024 7:49 PM EDT us Eris Olguin MD LAB BLOOD ORDERABLES Final Resul t Performing Organization Address [facility] Co de Phone Number [facility] [address] [facility]. [address] * Hepatitis C Antibody (04/17/2024 7:14 PM EDT) HCV Ab Nonreactive Nonreactive 04/18/2024 3:23 AM EDT [facility] Comment:Health Department no tified in accordance with reportable infectious disease guidelines. Serum 04/17/2024 7:14 PM EDT 04/17/2024 7:49 PM EDT [facility] - 04/18/2024 3:23 AM EDT Antibodies to HCV not detected; does not exclude the possibility of exposure to HCV. Eris Olguin MD LAB BLOOD ORDERABLES Final Resul t Performing Organization Address [facility] Co de Phone Number [facility] [address] [place] [address]. [address] * Hepatitis B surface antigen (04/17/2024 7:14 PM EDT) Hep B Surface Ag Nonreactive Nonreactive 04/17/2024 10:40 PM EDT [facility] Comment:Health Department no tified in accordance with reportable infectious disease guidelines. Serum 04/17/2024 7:14 PM EDT 04/17/2024 7:49 PM EDT [facility] - 04/17/2024 10:40 PM EDT Specimen is considered negative for HBsAg. Eris Olguin MD LAB BLOOD ORDERABLES Final Resul t Performing Organization Address [facility] de Phone Number [facility] [address] [place] [address]. [address] * (ABNORMAL) Venous Blood Gas, Line/Syringe (04/17/2024 7:11 PM EDT) PH-Line Draw 7.18(LL) 7.32 - 7.42 04/17/2024 7:19 PM EDT [facility] Comment: The critical result was called to, and read back by, Paulina Crouch PCO2-Line Draw 51 41 - 51 mm Hg 04/17/2024 7:19 PM EDT [facility] PO2-Line Draw 36 25 - 40 mm Hg 04/17/2024 7:19 PM EDT [facility] HCO3-Line Draw 19(L) 24 - 28 mmol/L 04/17/2024 7:19 PM EDT [facility] CO2 Content-Line Draw 21(L) 25 - 29 mmol/L 04/17/2024 7:19 PM EDT [facility] Base Excess-Line Draw -8.8(L) -2.0 - 3.0 mmol/L 04/17/2024 7:19 PM EDT [facility] %HBO2-Line Draw 52.2 40.0 - 70.0 % 04/17/2024 7:19 PM EDT [facility] Carboxyhgb-Nemo e Draw 1.6 % 04/17/2024 7:19 PM EDT [facility] Comment: CARBOXYHEMOGLOBIN (CO) REFERENCE RANGES: Non-Smokers: ??<2 % ? Smokers: ??<8 % TOXIC: >20 % Methemoglobin- Line Draw 0.9 0.0 - 1.5 % 04/17/2024 7:19 PM EDT [facility] Reduced Hemoglobin-Nemo e Draw 45.3(H) 0.0 - 5.0 % 04/17/2024 7:19 PM EDT [facility] Venous, Line Draw 04/17/2024 7:11 PM EDT 04/17/2024 7:14 PM EDT us Jacinto Pineda MD LAB BLOOD ORDERABLES Final Res ult Performing Organization Address City/State/[facility] Co de Phone Number [facility] [address] * CENTRAL LINE SINGLE LUMEN PERFORMABLE (04/17/2024 6:54 PM EDT) Narrative Hany Gamez MD - 04/17/2024 6:54 PM EDT Dominic Sandoval MD ? 04/17/2024 ??6:56 PM Central Line Date/Time: 04/17/2024 6:54 PM Performed by: GOLDEN Romanonsent: Verbal consent obtained. Written consent obtained. Risks and benefits: risks, benefits and alternatives were discussed Consent given by: patient Patient understanding: patient states understanding of the procedure being performed Patient consent: the patient's understanding of the procedure matches consent given Procedure consent: procedure consent matches procedure scheduled Relevant documents: relevant documents present and verified Test results: test results available and properly labeled Site marked: the operative site was marked Imaging studies: imaging studies available Required items: required blood products, implants, devices, and special equipment available Patient identity confirmed: provided demographic data, hospital-assigned identification number and arm band Time out: Immediately prior to procedure a time out was called to verify the correct patient, procedure, equipment, field support engineer and site/side marked as required. Catheter type: hemodialysis Hemodialysis catheter type: triple lumen hemodialysis catheter Indication(s): hemodialysis Patient location at time of line placement: Other (Floor) Conditions of line placement: sterile Preparation: skin prepped with 2% chlorhexidine Location details: right femoral Catheter size: 13 Fr Catheter fully inserted (hub at skin): yes Insertion guided by: anatomical landmarks and ultrasound guided Number of attempts: 2 Successful placement: yes Sutured: 3-0 Post procedure chest x-ray ordered: no (not indicated for femoral line) Complications: none Comments: 13 Fr. Trialysis catheter placed into right femoral vein using ultrasound for hemodialysis access. 8 cc of lidocaine 1% without epinephrine used for local anesthesia. Patient tolerated well with no immediate complications. us Hany Gamez MD PROCEDURE/MINOR SURGICAL ORDER ASHISH Final Result * ECG 12 lead (MUSE) (04/17/2024 4:09 PM EDT) Only the most recent of2 resultswithin the time period is included. 04/17/2024 4:09 PM EDT Narrative MUSE - 04/18/2024 4:52 PM EDT Ventricular Rate: ??96 ??BPM QRS Duration: ??118 ??ms QT: ??408 ??ms QTc: ??515 ??ms R [place]: ??80 ??degrees T [place]: ??54 ??degrees Diagnosis Line: ??UNDETERMINED RHYTHM ^ REPEAT RECORD IF CLINICALLY INDICATED ^ NONSPECIFIC INTRAVENTRICULAR CONDUCTION DELAY ^ PROLONGED QT ^ ABNORMAL ECG ^ ??^ Confirmed by ADELINA ??, MARY ANN ([id number]) on 04/18/2024 4:52:16 PM us Jacinto Pineda MD ECG ORDERABLES Final Result MUSE * (ABNORMAL) Hepatitis B Lab Panel (HEMODIALYSIS PATIENTS ONLY) (04/17/2024 8:28 AM EDT) Hep B Surface Ag Nonreactive Nonreactive 04/17/2024 11:23 AM EDT [facility] Comment:Health Department no tified in accordance with reportable infectious disease guidelines. Hep B Core Total Ab Reactive(A) Nonreactive 04/17/2024 11:23 AM EDT [facility] Comment:Health Department no tified in accordance with reportable infectious disease guidelines. HBSAB NUMBER 370.00(H) 0.00 - 9.99 mIU/mL 04/17/2024 11:23 AM EDT [facility] Hep B S Ab Reactive(A) Nonreactive 04/17/2024 11:23 AM EDT [facility] Serum 04/17/2024 8:28 AM EDT 04/17/2024 8:57 AM EDT Narrative [facility] - 04/17/2024 11:23 AM EDT The results of the multi-test panel are consistent with a patient who has a history of resolved Hepatitis B infection and is immune due to natural infection. us Eris Olguin MD LAB BLOOD ORDERABLES Final Resul t [facility] [address] * (ABNORMAL) Hepatic Function Panel (04/17/2024 5:24 AM EDT) Total Bilirubin 0.4 0.0 - 1.5 mg/dL 04/17/2024 7:01 AM EDT [facility] Bilirubin, Direct 0.12 0.00 - 0.40 mg/dL 04/17/2024 7:01 AM EDT [facility] AST 9(L) 13 - 39 U/L 04/17/2024 7:01 AM EDT [facility] ALT 8 7 - 52 U/L 04/17/2024 7:01 AM EDT [facility] Alkaline Phosphatase 169(H) 36 - 125 U/L 04/17/2024 7:01 AM EDT [facility] Total Protein 6.6 6.4 - 8.9 g/dL 04/17/2024 7:01 AM EDT [facility] Albumin 3.7 3.5 - 5.7 g/dL 04/17/2024 7:01 AM EDT [facility] Bilirubin, Indirect 0.28 0.00 - 1.10 mg/dL 04/17/2024 7:01 AM EDT [facility] Plasma 04/17/2024 5:24 AM EDT 04/17/2024 6:06 AM EDT Ky Hills MD LAB BLOOD ORDERABLES Final Result [facility] [address] [facility] [place] [id number], [facility] * (ABNORMAL) Lipid Profile (04/07/2022 11:13 AM EDT) Cholesterol, Total 124 0 - 200 mg/dL 04/07/2022 3:08 PM EDT [facility] Triglycerides 124 10 - 149 mg/dL 04/07/2022 3:08 PM EDT [facility] HDL 36(L) 60 - 92 mg/dL 04/07/2022 3:08 PM EDT [facility] Comment: ?LIPID PROFILE INTERPRETATION ?CHOLESTEROL,TOTAL(mg/dL) ? DESIRABLE: ?< 200 ? BORDERLINE HIGH RISK: ? 200 - 239 ? HIGH RISK(UNDESIRABLE): ? =/> 240 ?LDL CHOLESTEROL(mg/dL) ? OPTIMAL: ?< 100 ? NEAR HIGH OPTIMAL: ?100 - 129 ? BORDERLINE HIGH RISK: ? 130 - 159 ? HIGH RISK: ?160 - 189 ? VERY HIGH RISK: ? =/> 190 ?HDL CHOLESTEROL(mg/dL) ? HIGH RISK(UNDESIRABLE): ? < 40 ? BORDERLINE: ? 40 - 59 ? LOW RISK (DESIRABLE): ? => 60 ?TRIGLYCERIDES (mg/dL) ? NORMAL(DESIRABLE): ?< 150 ? BORDERLINE HIGH RISK: ? 150 - 199 ? HIGH RISK: ?200 - 499 ? VERY HIGH RISK: ? =/> 500 ? Based on the guidlines of the National Cholesterol ? Education Program (NCEP). ? Assumes sample obtained after a 9- to 12- hour fast. LDL Cholesterol 63 mg/dL 3:08 PM EDT [facility] Plasma 04/07/2022 11:1 3 AM EDT 04/07/2022 2:49 PM EDT Narrative [facility] - 04/07/2022 3:08 PM EDT Must the patient be fasting for this test?->Yes us Humza Riley [facility] BLOOD ORDERABLES Final Resul t Performing Organization Address City/State/[facility] Co de Phone Number [facility] [address] * Endoscopy, colon, diagnostic (03/23/2022 9:13 AM EDT) 03/23/2022 9:13 AM EDT Narrative [facility] - 03/23/2022 9:51 AM EDT [id number] Procedure Date: 03/23/2022 9:13 AM ? Patient Name: Aiden Stauffer ? Date of : 1975 ?Admit Type: Inpatient Age: 47 ? Gender: Male Note Status: Finalized ?Attending MD: Aba Moore , Procedure: ? Colonoscopy Indications: ? Hematochezia Patient Profile: ? 47yo male with history of ESRD, OLT in 2018 here for ? hematochezia however transferred to CVICU for volume ? overload requiring hemodynamic monitoring. Also having ? abdominal pain and reports history of gastric ulcers. Providers: ? Wilmer Jerez (Fellow) Referring MD: ?Provider Not in System Medicines: ? Monitored Anesthesia Care Complications: ? No immediate complications. Procedure: ? Pre-Anesthesia Assessment: ? - Prior to the procedure, a History and Physical was ? performed, and patient medications and allergies were ? reviewed. The patient is competent. The risks and ? benefits of the procedure and the sedation options and ? risks were discussed with the patient. All questions ? were answered and informed consent was obtained. ? Patient identification and proposed procedure were ? verified by the physician, the nurse, the wool washing machine operator ? and the orthotic and prosthetic technician in the procedure room. Mental ? Status Examination: alert and oriented. Airway ? Examination: normal oropharyngeal airway and neck ? mobility. Respiratory Examination: clear to ? auscultation. CV Examination: normal. Prophylactic ? Antibiotics: The patient does not require prophylactic ? antibiotics. Prior Anticoagulants: The patient has ? taken no anticoagulant or antiplatelet agents. ASA ? Grade Assessment: III - A patient with severe systemic ? disease. After reviewing the risks and benefits, the ? patient was deemed in satisfactory condition to ? undergo the procedure. The anesthesia plan was to use ? monitored anesthesia care (MAC). Immediately prior to ? administration of medications, the patient was ? re-assessed for adequacy to receive sedatives. The ? heart rate, respiratory rate, oxygen saturations, ? blood pressure, adequacy of pulmonary ventilation, and ? response to care were monitored throughout the ? procedure. The physical status of the patient was ? re-assessed after the procedure. ? After I obtained informed consent, the scope was ? passed under direct vision. Throughout the procedure, ? the patient's blood pressure, pulse, and oxygen ? saturations were monitored continuously. The ? Colonoscope was introduced through the anus and ? advanced to the cecum, identified by appendiceal ? orifice and ileocecal valve. The colonoscopy was ? performed without difficulty. The patient tolerated ? the procedure well. The quality of the bowel ? preparation was good. The ileocecal valve, appendiceal ? orifice, and rectum were photographed. ? Findings: ? The perianal and digital rectal examinations were normal. ? A large amount of semi-liquid stool was found in the descending colon, ? interfering with visualization. Lavage of the area was performed using a ? large amount, resulting in clearance with fair visualization. Other ? segments of colon with good visualization. ? Non-bleeding internal hemorrhoids were found during retroflexion. ? The exam was otherwise without abnormality with no evidence of bleeding ? or stigmata of previous bleeding ? Estimated Blood Loss: ? Estimated blood loss was minimal. Impression: ?- Stool in the descending colon. ? - Non-bleeding internal hemorrhoids. ? - The examination was otherwise normal. ? - No specimens collected. Recommendation: ?- [facility]. ? - Resume previous diet. ? - Continue present medications. ? - Repeat colonoscopy (date not yet determined) for ? surveillance. ? Procedure Code(s): ? --- Professional --- ? 30709, GC, Colonoscopy, flexible; diagnostic, ? including collection of specimen(s) by brushing or ? washing, when performed (separate procedure) Diagnosis Code(s): ? --- Professional --- ? K64.8, Other hemorrhoids ? K92.1, Melena (includes Hematochezia) CPT copyright 2020 [employer]. All rights reserved. The codes documented in this report are preliminary and upon racehorse trainer review may be revised to meet current compliance requirements. [employer]ORE Aba Moore, 03/23/2022 9:51:42 AM Husam Wilmer Hoyos, 03/23/2022 9:50:30 AM Scope Withdrawal Time 0 hours 8 minutes 24 seconds Total Procedure Duration Time 0 hours 15 minutes 38 seconds Scope In: 9:18:06 AM Scope Out: 9:33:44 AM ? [address] [place] [phone] us Provider Not In System GI PROCEDURE ORDERABLES F inal Result [facility] [address] [facility] [place] [address] * (ABNORMAL) Occult Blood (06/15/2020 9:10 AM EST) Occult Blood, Stool #1 Positive(A ) Negative 06/15/2020 1:39 PM EST [facility] Stool specimen (specimen) FECES / Unknown 06/15/2020 9:10 AM EST 06/15/2020 11:52 AM EST Comment:F us Yessy Molina MD BODY FLUIDS AND STOOLS ORDERABLES Final Result [facility] [address] from Last 3 Months or Most Recently Relevant to Health Maintenance
--- OUTSIDE RECORDS SUMMARY | 2024-07-12 12:22 | XMS_ITS | Clinical Summary ---
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 Hemoglobin A1c (04/18/2024 4:32 AM EDT) Hemoglobin A1C 6.5(H) 4.0 - 5.6 % 04/18/2024 11:46 AM EDT [facility] Comment: Hemoglobin A1c Interpretation Guidelines: Normal: [...] 4:32 AM EDT 04/18/2024 4:37 AM EDT us Ky Hills MD LAB BLOOD ORDERABLES Final Result LAB [address] [place] [address], [facility] * Occupational Exposure Screen Reflex (04/17/2024 7:14 PM EDT) HIV-1/HIV-2 Ab Negative Negative 04/17/2024 8:49 PM EDT [facility] Comment:Results called to an d read back by JANA Escobedo. P24 Antigen Negative Negative 04/17/2024 8:49 PM EDT LAB Comment:Results called to an d read back by JANA Escobedo. Serum 04/17/2024 7:14 PM EDT 04/17/2024 7:49 PM EDT Eris Olguin MD LAB BLOOD ORDERABLES Final Resul t Performing Organization Address [facility] Co de Phone Number LAB [address] [place] [address] * Hepatitis C Antibody (04/17/2024 7:14 PM EDT) HCV Ab Nonreactive Nonreactive 04/18/2024 3:23 AM EDT LAB Comment:Health Department no tified in accordance with reportable infectious disease guidelines. Serum 04/17/2024 7:14 PM EDT 04/17/2024 7:49 PM EDT Narrative LAB - 04/18/2024 3:23 AM EDT Antibodies to HCV not detected; does not exclude the possibility of exposure to HCV. Eris Olguin MD LAB BLOOD ORDERABLES Final Resul t Performing Organization Address [facility] de Phone Number LAB [address] [place] [address]. [address] * Hepatitis B surface antigen (04/17/2024 7:14 PM EDT) Hep B Surface Ag Nonreactive Nonreactive 04/17/2024 10:40 PM EDT HEALTH LAB Comment:Health Department no tified in accordance with reportable infectious disease guidelines. Serum 04/17/2024 7:14 PM EDT 04/17/2024 7:49 PM EDT Narrative HEALTH LAB - 04/17/2024 10:40 PM EDT Specimen is considered negative for HBsAg. Result [facility] Eris Olguin MD LAB BLOOD ORDERABLES Final Resul t LAB [address] [place] [address], [facility] * (ABNORMAL) Venous Blood Gas, Line/Syringe (04/17/2024 7:11 PM EDT) PH-Line Draw 7.18(LL) 7.32 - 7.42 04/17/2024 7:19 PM EDT LAB Comment: The critical result was called to, and read back by, Paulina Crouch PCO2-Line Draw 51 41 - 51 mm Hg 04/17/2024 7:19 PM EDT LAB PO2-Line Draw 36 25 - 40 mm Hg 04/17/2024 7:19 PM EDT LAB HCO3-Line Draw 19(L) 24 - 28 mmol/L 04/17/2024 7:19 PM EDT LAB CO2 Content-Line Draw 21(L) 25 - 29 mmol/L 04/17/2024 7:19 PM EDT LAB Base Excess-Line Draw -8.8(L) -2.0 - 3.0 mmol/L 04/17/2024 7:19 PM EDT LAB %HBO2-Line Draw 52.2 40.0 - 70.0 % 04/17/2024 7:19 PM EDT LAB Carboxyhgb-Nemo e Draw 1.6 % 04/17/2024 7:19 PM EDT LAB Comment: CARBOXYHEMOGLOBIN (CO) REFERENCE RANGES: Non-Smokers: ??<2 % ? Smokers: ??<8 % TOXIC: >20 % Methemoglobin- Line Draw 0.9 0.0 - 1.5 % 04/17/2024 7:19 PM EDT LAB Reduced Hemoglobin-Nemo e Draw 45.3(H) 0.0 - 5.0 % 04/17/2024 7:19 PM EDT LAB Venous, Line Draw 04/17/2024 7:11 PM EDT 04/17/2024 7:14 PM EDT us Jacinto Pineda MD LAB BLOOD ORDERABLES Final Res ult LAB [address] [place] [address], [facility] * CENTRAL LINE SINGLE LUMEN PERFORMABLE (04/17/2024 6:54 PM EDT) Hany Persaud MD - 04/17/2024 6:54 PM EDT Dominic [...] to verify the correct patient, procedure, equipment, customer support assistant and site/side marked as required. Catheter type: [...] QT: ??408 ??ms QTc: ??515 ??ms R Paradise: ??80 ??degrees T Paradise: ??54 ??degrees Diagnosis Line: ??UNDETERMINED RHYTHM ^ REPEAT RECORD IF CLINICALLY INDICATED ^ NONSPECIFIC INTRAVENTRICULAR CONDUCTION DELAY ^ PROLONGED QT ^ ABNORMAL ECG ^ ??^ Confirmed by ADELINA ??MARY ANN PEREZ ([id number]) on 04/18/2024 4:52:16 PM us Jacinto Pineda MD ECG ORDERABLES Final Result Performing Organization Address City/[facility]/ZIP Co de Phone Number MUSE * (ABNORMAL) Hepatitis B Lab Panel (HEMODIALYSIS PATIENTS ONLY) (04/17/2024 8:28 AM EDT) Hep B Surface Ag Nonreactive Nonreactive 04/17/2024 11:23 AM EDT LAB Comment:Health Department no tified in accordance with reportable infectious disease guidelines. Hep B Core Total Ab Reactive(A) Nonreactive 04/17/2024 11:23 AM EDT LAB Comment:Health Department no tified in accordance with reportable infectious disease guidelines. HBSAB NUMBER 370.00(H) 0.00 - 9.99 mIU/mL 04/17/2024 11:23 AM EDT LAB Hep B S Ab Reactive(A) Nonreactive 04/17/2024 11:23 AM EDT LAB Serum 04/17/2024 8:28 AM EDT 04/17/2024 8:57 AM EDT Narrative LAB - 04/17/2024 11:23 AM EDT The results of the multi-test panel are consistent with a patient who has a history of resolved Hepatitis B infection and is immune due to natural infection. us Eris Olguin MD LAB BLOOD ORDERABLES Final Resul t LAB [address] [place] [address], [facility] * (ABNORMAL) Hepatic Function Panel (04/17/2024 5:24 AM EDT) Total Bilirubin 0.4 0.0 - 1.5 mg/dL 04/17/2024 7:01 AM EDT LAB Bilirubin, Direct 0.12 0.00 - 0.40 mg/dL 04/17/2024 7:01 AM EDT LAB AST 9(L) 13 - 39 U/L 04/17/2024 7:01 AM EDT LAB ALT 8 7 - 52 U/L 04/17/2024 7:01 AM EDT LAB Alkaline Phosphatase 169(H) 36 - 125 U/L 04/17/2024 7:01 AM EDT LAB Total Protein 6.6 6.4 - 8.9 g/dL 04/17/2024 7:01 AM EDT LAB Albumin 3.7 3.5 - 5.7 g/dL 04/17/2024 7:01 AM EDT LAB Bilirubin, Indirect 0.28 0.00 - 1.10 mg/dL 04/17/2024 7:01 AM EDT LAB Plasma 04/17/2024 5:24 AM EDT 04/17/2024 6:06 AM EDT us Ky Hills MD LAB BLOOD ORDERABLES Final Result Performing Organization Address City/State/[facility] Co de Phone Number LAB [address] * (ABNORMAL) Lipid Profile (04/07/2022 11:13 AM EDT) Cholesterol, Total 124 0 - 200 mg/dL 04/07/2022 3:08 PM EDT HEALTH LAB Triglycerides 124 10 - 149 mg/dL 04/07/2022 3:08 PM EDT LAB HDL 36(L) 60 - 92 mg/dL 04/07/2022 3:08 PM EDT HEALTH LAB Comment: ?LIPID PROFILE INTERPRETATION ?CHOLESTEROL,TOTAL(mg/dL) ? [...] 12- hour fast. LDL Cholesterol 63 mg/dL 2 3:08 PM EDT LAB Plasma 04/07/2022 11:1 3 AM EDT 04/07/2022 2:49 PM EDT Narrative LAB - 04/07/2022 3:08 PM EDT Must the patient be fasting for this test?->Yes us Humza Riley [facility] LAB BLOOD ORDERABLES Final Resul t Performing Organization Address City/State/[facility] Co de Phone Number LAB [address] * Endoscopy, colon, diagnostic (03/23/2022 9:13 AM EDT) 03/23/2022 9:13 AM EDT Narrative [facility] - 03/23/2022 9:51 AM EDT [id number] Procedure Date: 03/23/2022 9:13 AM ? Patient Name: Aiden Stauffer ? Date of : 1975 ?Admit Type: Inpatient Age: 47 ? Gender: Male Note Status: Finalized ?Attending MD: Roxann Moore , Procedure: ? Colonoscopy Indications: ? [...] verified by the physician, the nurse, the police sergeant ? and the geothermal technician in the procedure room. Mental ? [...] Procedure Code(s): ? --- Professional --- ? 33685, GC, Colonoscopy, flexible; diagnostic, ? including collection of specimen(s) by brushing or ? washing, when performed (separate procedure) Diagnosis Code(s): ? --- Professional --- ? K64.8, Other hemorrhoids ? K92.1, Melena (includes Hematochezia) CPT copyright 2020 [employer]. All rights reserved. The codes documented in this report are preliminary and upon cookee review may be revised to meet current compliance requirements. ROXANN MOORE Roxann Moore, 03/23/2022 9:51:42 AM Husam Wilmer Hoyos, 03/23/2022 9:50:30 AM Scope Withdrawal Time 0 hours 8 minutes 24 seconds Total Procedure Duration Time 0 hours 15 minutes 38 seconds Scope In: 9:18:06 AM Scope Out: 9:33:44 AM ? [address] [address] us Provider Not In System GI PROCEDURE ORDERABLES F inal Result Performing Organization Address City/[facility] Co de Phone Number [facility] [address] [place] [address] * (ABNORMAL) Occult Blood (06/15/2020 9:10 AM EST) Occult Blood, Stool #1 Positive(A ) Negative 06/15/2020 1:39 PM EST LAB Stool specimen (specimen) FECES / Unknown 06/15/2020 9:10 AM EST 06/15/2020 11:52 AM EST Comment:F Yessy Molina MD BODY FLUIDS AND STOOLS ORDERABLES Final Result Performing Organization Address [facility] Co de Phone Number LAB [address] from Last 3 Months or Most Recently Relevant to Health Maintenance Insurance [place] [employer] Member Subscriber Plan / Payer (Ef fective 2021-Present) Name:Aiden Stauffer Ivelisse Marques Relation to Subscriber:Self Name:Aiden Stauffer JrUbaldo Payer ID:[id number] (NAIC) Group ID:[id number] Type:Not on file Address: [address] [place] [address] [place] Advance Directives For more information, please contact: [phone] Documents on File Type Date Recorded Patient Inside Wirer Expl anation Living Will Testament - scan 08/22/2017 11:37 AM * Full Code (Latest Code Status on File) Date Activated Date Inactivated Comments 04/28/2024 1:34 AM 04/28/2024 5:16 PM * Full Code Date Activated Date Inactivated Comments 04/17/2024 4:43 AM 04/18/2024 7:00 PM * Full Code Date Activated Date Inactivated Comments 11/04/2023 7:42 PM 11/09/2023 7:14 PM * Full Code Date Activated Date Inactivated Comments 11/22/2022 1:55 PM 11/22/2022 10:09 PM * Full Code Date Activated Date Inactivated Comments 06/23/2022 7:40 AM 06/23/2022 3:21 PM Care Teams Igniter Capper Relationship Specialty Start Date End Date Edgar Fournier MD [address] [place] [address] [place] [address] PCP - General 12/22/21 Maile Valles, RN Txp Post Coordinator Transplant Hepatology 11/07/17 Jack Ordoñez MD [address] [place] [phone] Consulting Physician Transplant Hepatology 01/05/18 Estephania Sharif, DarrianD Pharmacist Pharmacist 11/11/19
--- OUTSIDE RECORDS SUMMARY | 2024-07-12 12:22 | XMS_ITS | Encounter Summary ---
Author Organization [facility] Address [address] [place] [address] Care Team Providers Care Dormitory Counselor Name Role Phone Maile Valles RN Unavailable Unavail able Jack Ordoñez MD Unavailable [phone] Estephania Sharif PharmD Unavailable Christine Edgar Tolentino MD Primary Care Provider [phone] Source Comments This information has been disclosed [...] release of HIV test results or diagnoses. [id number] Reason for Referral * Surgical (Routine) - Authorized Specialty Diagnoses / Procedures Referred By Contac t Referred To Contact Radiology Diagnoses ESRD (end stage renal disease) ([facility]) Procedures IR inj Extremity Venous con Left AMB Referral to Interventional Radiology (BODY IR) Herve Carrillo MD [address] [facility] [address] [place] [address] Phone: tel: fax: Referral ID Status Reason Start Date Expiration Date V isits Requested Visits Authorized [id number] Authorized 05/14/2024 11/10/2024 1 1 Encounter Details Date Type Department Care Team (Late st Contact Info) Description 05/14/2024 Orders Only [facility] Vascular Access at [facility] [address] [facility] [address] [place] [address] Chiquita Ryan RN ESRD (end stage renal disease) ([facility]) (Primary Dx) Social History Tobacco Use Types [...] place to sleep or slept in a senior living (including now)? No 11/05/2023 Housing Stability Vital [...] were you homeless or living in a senior living (including now)? No 04/28/2024 Sex and Gender Information Value Date Recorded Sex Assigned at Not on file Legal Sex Male 11:05 AM EDT Gender Identity Not on file Sexual Orientation Not on file documented as of this encounter Plan of Treatment Upcoming Encounters Date Type Department Care Team (Late st Contact Info) Description 07/15/2024 9:00 AM EST Hospital Encounter [facility] Interventional Radiology [address] [place] [phone] Herve Carrillo MD [address] [facility] [address] [place] [phone] Scheduled Orders Name Type Priority Associated Diagnoses Order Schedule IR inj Extremity Venous con Left Interventional Radiology Routine ESRD (end stage renal disease) ([facility]) Expected: 05/14/2024, Expires: 05/14/2025 documented as of this encounter Visit Diagnoses Diagnosis ESRD (end stage renal disease) ([facility])- Primary End stage renal disease documented in this encounter Additional Health Concerns Assessment Noted Time PHQ-9 Depression Total Score: 0 12/06/19 18 3:00 PM EDT documented as of this encounter Care Teams Dormitory Counselor Relationship Specialty Start Date End Date Edgar Fournier MD [address] [place] [address] [place] [address] PCP - General 12/22/21 Maile Valles, RN Txp Post Coordinator Transplant Hepatology 11/07/17 Jack Ordoñez MD [address] [place] [phone] Consulting Physician Transplant Hepatology 01/05/18 Estephania Sharif, DarrianD Pharmacist Pharmacist 11/11/19 documented as of this encounter
--- OUTSIDE RECORDS SUMMARY | 2024-07-12 12:22 | XMS_ITS | Encounter Summary ---
Author Organization [facility] Address [address] [place] [address] Care Team Providers Care Trip Follower Name Role Phone Maile Valles RN Unavailable Unavail able Jack Ordoñez MD Unavailable [phone] Estephania Sharif PharmD Unavailable Christine Edgar Tolentino MD Primary Care Provider [phone] Source Comments This information has been disclosed [...] release of HIV test results or diagnoses. [id number] Reason for Visit * Reason Comments Medication Refill Encounter Details Date Type Department Care Team (Late st Contact Info) Description 05/28/2024 Refill [facility] Medicine and Pediatrics at [address] [place] [address] Chiquita Mo MD [address] [place] [address] Social History Tobacco Use Types Packs/Day Years [...] place to sleep or slept in a halfway (including now)? No 11/05/2023 Housing Stability Vital Sign Answer Gilbert e Recorded In the last 12 months, was t here a time when you were not able to pay the mortgage or rent on time? No 04/28/2024 In the past 12 months, how m any times have you moved where you were living? 0 04/28/2024 At any time in the past 12 m [facility], were you homeless or living in a halfway (including now)? No 04/28/2024 Sex and Gender Information Value Date Recorded Sex Assigned at Not on file Legal Sex Male 11:05 AM EDT Gender Identity Not on file Sexual Orientation Not on file documented as of this encounter Plan of Treatment Upcoming Encounters Date Type Department Care Team (Late st Contact Info) Description 07/15/2024 9:00 AM EST Hospital Encounter [facility] Interventional Radiology [address] [place] [phone] Herve Carrillo MD [address] [facility] [address] [facility] [place] [phone] documented as of this encounter Visit Diagnoses Not on filedocumented in this encounter Additional Health Concerns Assessment Noted Time PHQ-9 Depression Total Score: 0 12/06/19 18 3:00 PM EDT documented as of this encounter Care Teams Trip Follower Relationship Specialty Start Date End Date Edgar Fournier MD [address] [place] [address] [place] [address] PCP - General 12/22/21 Maile Valles, JANA Txp Post Coordinator Transplant Hepatology 11/07/17 Jack Ordoñez MD [address] [place] [phone] Consulting Physician Transplant Hepatology 01/05/18 Estephania Sharif, DarrianD Pharmacist Pharmacist 11/11/19 documented as of this encounter
--- OUTSIDE RECORDS SUMMARY | 2024-07-12 12:22 | XMS_ITS | Encounter Summary ---
Author Organization [facility] Address [address] [place] [address] Care Team Providers Care Recording Clerk Name Role Phone Maile Valles RN Unavailable Unavail able Jack Ordoñez MD Unavailable [phone] Estephania Sharif PharmD Unavailable Christine Edgar Tolentino MD Primary Care Provider [phone] Source Comments This information has been disclosed [...] release of HIV test results or diagnoses. [id number] Encounter Details Date Type Department Care Team (Latest Contact Info) Description 05/21/2024 Travel Social History Tobacco Use Types Packs/Day Years Used Date Smoking Tobacco: Never Smokeless Tobacco: Never Alcohol Use Standard Drinks/Week Comments Never 0 (1 standard drink = 0.6 oz pur e alcohol) Utilities Answer Date Recorded In the past 12 months has School Yourself e electric, gas, oil, or water company [...] place to sleep or slept in a snf (including now)? No 11/05/2023 Housing Stability Vital Sign Answer Gilbert e Recorded In the last 12 months, was t here a time when you were not able to pay the mortgage or rent on time? No 04/28/2024 In the past 12 months, how m any times have you moved where you were living? 0 04/28/2024 At any time in the past 12 m [facility], were you homeless or living in a snf (including now)? No 04/28/2024 Sex and Gender Information Value Date Recorded Sex Assigned at Not on file Legal Sex Male 11:05 AM EDT Gender Identity Not on file Sexual Orientation Not on file documented as of this encounter Plan of Treatment Upcoming Encounters Date Type Department Care Team (Late st Contact Info) Description 07/15/2024 9:00 AM EST Hospital Encounter [facility] Interventional Radiology [address] [place] [phone] Herve Carrillo MD [address] [facility] [address] [place] [phone] documented as of this encounter Visit Diagnoses Not on filedocumented in this encounter Additional Health Concerns Assessment Noted Time PHQ-9 Depression Total Score: 0 12/06/19 18 3:00 PM EDT documented as of this encounter Care Teams Recording Clerk Relationship Specialty Start Date End Date Edgar Fournier MD [address] [place] [address] [place] [address] PCP - General 12/22/21 Maile Valles, RN Txp Post Coordinator Transplant Hepatology 11/07/17 Jack Ordoñez MD [address] [place] [phone] Consulting Physician Transplant Hepatology 01/05/18 Estephania Sharif, PharmD Pharmacist Pharmacist 11/11/19 documented as of this encounter
--- OUTSIDE RECORDS SUMMARY | 2024-07-12 12:22 | XMS_ITS | Encounter Summary ---
Author Organization [facility] Address [address] [place] [address] Care Team Providers Care Spine Specialist Name Role Phone Maile Valles RN Unavailable Unavail able Jack Ordoñez MD Unavailable [phone] Estephania Sharif PharmD Unavailable Christine Edgar Tolentino MD Primary Care Provider [phone] Source Comments This information has been disclosed [...] release of HIV test results or diagnoses. [id number] Health Encounter Details Date Type Department Care Team (Late st Contact Info) Description 05/13/2024 Telephone [facility] Liver Transplant at [place] [phone] [facility] [address] [place] [address] Maru Crisostomo MA Social History Tobacco Use Types Packs/Day Years Used Date Smoking Tobacco: Never Smokeless Tobacco: Never Alcohol Use Standard Drinks/Week Comments Never 0 (1 standard drink = 0.6 oz pur e alcohol) Utilities Answer Date Recorded In the past 12 months has th e electric, gas, oil, or water [employer] threatened to shut off services in your [...] place to sleep or slept in a long term (including now)? No 11/05/2023 Housing Stability Vital Sign Answer Gilbert e Recorded In the last 12 months, was t here a time when you were not able to pay the mortgage or rent on time? No 04/28/2024 In the past 12 months, how m any times have you moved where you were living? 0 04/28/2024 At any time in the past [address] [facility], were you homeless or living in a long term (including now)? No 04/28/2024 Sex and Gender Information Value Date Recorded Sex Assigned at Not on file Legal Sex Male 11:05 AM EDT Gender Identity Not on file Sexual Orientation Not on file documented as of this encounter Progress Notes * Maru Crisostomo MA - 05/13/2024 2:05 PM EDT Pt called stating his tunnel cath in his chest isn't working properly and wont let him clean it. Would like for his doctor to call. He is needing some help.Pt stated he has been to several hosp to get help with it. Pt stated he can get his dialysis done because of th cath not working. Pt stated he is in dire needto get his treatment done. Pt states that Dr. Garvey is involved with the cath documented in this encounter Plan of Treatment Upcoming Encounters Date Type Department Care Team (Late st Contact Info) Description 07/15/2024 9:00 AM EST Hospital Encounter [facility] Interventional Radiology [address] [place] [phone] Herve Carrillo MD [address] [facility] [address] [place] [phone] documented as of this encounter Visit Diagnoses Not on filedocumented in this encounter Additional Health Concerns Assessment Noted Time PHQ-9 Depression Total Score: 0 12/06/19 18 3:00 PM EDT documented as of this encounter Care Teams Spine Specialist Relationship Specialty Start Date End Date Edgar Fournier MD [address] [place] [address] [place] [address] PCP - General 12/22/21 Maile Valles, JANA Txp Post Coordinator Transplant Hepatology 11/07/17 Jack Ordoñez MD [address] [place] [phone] Consulting Physician Transplant Hepatology 01/05/18 Estephania Sharif, DarrianD Pharmacist Pharmacist 11/11/19 documented as of this encounter
--- OUTSIDE RECORDS SUMMARY | 2024-07-12 12:22 | XMS_ITS | Encounter Summary ---
Author Organization [facility] Address [address] [place] [address] Care Team Providers Care Draw End Hand Name Role Phone Maile Valles RN Unavailable Unavail able Jack Ordoñez MD Unavailable [phone] Estephania Sharif PharmD Unavailable Christine Edgar Tolentino MD Primary Care Provider [phone] Source Comments This information has been disclosed [...] release of HIV test results or diagnoses. [id number] Health Encounter Details Date Type Department Care Team (Latest Contact Info) Description 05/20/2024 Travel Social History Tobacco Use Types Packs/Day Years Used Date Smoking Tobacco: Never Smokeless Tobacco: Never Alcohol Use Standard Drinks/Week Comments Never 0 (1 standard drink = 0.6 oz pur e alcohol) Utilities Answer Date Recorded In the past 12 months has [employer] electric, gas, oil, or water company [...] place to sleep or slept in a jail (including now)? No 11/05/2023 Housing Stability Vital Sign Answer Gilbert e Recorded In the last 12 months, was t here a time when you were not able to pay the mortgage or rent on time? No 04/28/2024 In the past 12 months, how m any times have you moved where you were living? 0 04/28/2024 At any time in the past 12 m [facility], were you homeless or living in a jail (including now)? No 04/28/2024 Sex and Gender Information Value Date Recorded Sex Assigned at Not on file Legal Sex Male 11:05 AM EDT Gender Identity Not on file Sexual Orientation Not on file documented as of this encounter Plan of Treatment Upcoming Encounters Date Type Department Care Team (Late st Contact Info) Description 07/15/2024 9:00 AM EST Hospital Encounter [facility] Interventional Radiology [address] [place] [phone] Herve Carrillo MD [address] [place] [address] [facility] [address] [facility] [place] [phone] documented as of this encounter Visit Diagnoses Not on filedocumented in this encounter Additional Health Concerns Assessment Noted Time PHQ-9 Depression Total Score: 0 12/06/19 18 3:00 PM EDT documented as of this encounter Care Teams Draw End Hand Relationship Specialty Start Date End Date Edgar Fournier MD [address] [place] [address] [place] [address] PCP - General 12/22/21 Maile Valles, RN Txp Post Coordinator Transplant Hepatology 11/07/17 Jack Ordoñez MD [address] [place] [phone] Consulting Physician Transplant Hepatology 01/05/18 Estephania Sharif, PharmD Pharmacist Pharmacist 11/11/19 documented as of this encounter
--- OUTSIDE RECORDS SUMMARY | 2024-07-12 12:22 | XMS_ITS | Encounter Summary ---
Author Organization [facility] Address [address] [place] [address] Care Team Providers Care House Admin Name Role Phone Maile Valles RN Unavailable Unavail able Jack Ordoñez MD Unavailable [phone] Estephania Sharif PharmD Unavailable Christine Edgar Tolentino MD Primary Care Provider [phone] Source Comments This information has been disclosed [...] release of HIV test results or diagnoses. [id number] Health Encounter Details Date Type Department Care Team (Late st Contact Info) Description 05/21/20[address] [facility] Cardiac Stress Lab at [facility] [address] [facility] [address] [place] [address] Estrella Lora, JANA Patient came in today for a Dobutamine stress echo. Test education was Social History Tobacco Use Types Packs/Day Years [...] to sleep or slept in a senior care (including now)? No 11/05/2023 Housing Stability Vital Sign Answer Gilbert e Recorded In the last 12 months, was t here a time when you were not able to pay the mortgage or rent on time? No 04/28/2024 In the past 12 months, how m any times have you moved where you were living? 0 04/28/2024 At any time in the past 12 m [facility], were you homeless or living in a senior care (including now)? No 04/28/2024 Sex and Gender Information Value Date Recorded Sex Assigned at Not on file Legal Sex Male 11:05 AM EDT Gender Identity Not on file Sexual Orientation Not on file documented as of this encounter Progress Notes * Estrella Lora RN - 05/21/2024 1:09 PM EDT Patient came in today for a Dobutamine stress echo. Test education was given to the patient prior to testing. Resting EKG and patient history was reviewed by Dr. Carvajal. given okay to proceed with stress testing. Resting BP was 172/86. Resting HR 102. Dobutamine protocol was used. Patient tolerated the dobutamine infusion well. Patient recovered and escorted back to [facility]. documented in this encounter Plan of Treatment Upcoming Encounters Date Type Department Care Team (Late st Contact Info) Description 07/15/2024 9:00 AM EST Hospital Encounter [facility] Interventional Radiology [address] [place] [phone] Herve Carrillo MD [address] [facility] [address] [place] [phone] documented as of this encounter Visit Diagnoses Not on filedocumented in this encounter Additional Health Concerns Assessment Noted Time PHQ-9 Depression Total Score: 0 12/06/19 18 3:00 PM EDT documented as of this encounter Care Teams House Admin Relationship Specialty Start Date End Date Edgar Fournier MD [address] [place] [address] [place] [address] PCP - General 12/22/21 Maile Valles, RN Txp Post Coordinator Transplant Hepatology 11/07/17 Jack Ordoñez MD [address] [place] [phone] Consulting Physician Transplant Hepatology 01/05/18 Estephania Sharif, PharmD Pharmacist Pharmacist 11/11/19 documented as of this encounter
--- OUTSIDE RECORDS SUMMARY | 2024-07-12 12:22 | XMS_ITS | Encounter Summary ---
Author Organization [facility] Address [address] [place] [address] Care Team Providers Care Pattern Keeper Name Role Phone Maile Valles RN Unavailable Unavail able Jack Ordoñez MD Unavailable [phone] Estephania Sharif PharmD Unavailable Christine Edgar Tolentino MD Primary Care Provider [phone] Source Comments This information has been disclosed [...] release of HIV test results or diagnoses. [id number] Health Encounter Details Date Type Department Care Team (Latest Contact Info) Description 07/10/2024 Travel Social History Tobacco Use Types Packs/Day Years Used Date Smoking Tobacco: Never Smokeless Tobacco: Never Alcohol Use Standard Drinks/Week Comments Never 0 (1 standard drink = 0.6 oz pur e alcohol) Utilities Answer Date Recorded In the past 12 months has [employer] e electric, gas, oil, or water company [...] any time in the past 12 m [facility], were you homeless or living in [...] Description 07/15/2024 9:00 AM EST Hospital Encounter [facility] Interventional Radiology [address] [place] [phone] Herve Carrillo MD [address] [place] [address] [address] [place] [phone] documented as of this encounter Visit Diagnoses Not on filedocumented in this encounter Additional Health Concerns Assessment Noted Time PHQ-9 Depression Total Score: 0 12/06/19 18 3:00 PM EDT documented as of this encounter Care Teams Pattern Keeper Relationship Specialty Start Date End Date Edgar Fournier MD [address] [place] [address] [place] [address] PCP - General 12/22/21 Maile Valles, RN Txp Post Coordinator Transplant Hepatology 11/07/17 Jack Ordoñez MD [address] [place] [phone] Consulting Physician Transplant Hepatology 01/05/18 Estephania Sharif, PharmD Pharmacist Pharmacist 11/11/19 documented as of this encounter
--- OUTSIDE RECORDS SUMMARY | 2024-07-12 12:22 | XMS_ITS | Encounter Summary ---
Author Organization [facility] Address [facility] [place] [address] Care Team Providers Care Ice Grinder Name Role Phone Maile Valles RN Unavailable Unavail able Jack Ordoñez MD Unavailable [phone] Estephania Sharif PharmD Unavailable Christine Edgar Tolentino MD Primary Care Provider [phone] Source Comments This information has been disclosed [...] release of HIV test results or diagnoses. [id number] Health Encounter Details Date Type Department Care Team (Late st Contact Info) Description 07/10/2024 Telephone [facility] Interventional Radiology [address] [place] [address] Ayden Nina RN Social History Tobacco Use Types Packs/Day Years Used Date Smoking Tobacco: Never Smokeless Tobacco: Never Alcohol Use Standard Drinks/Week Comments Never 0 (1 standard drink = 0.6 oz pur e alcohol) Utilities Answer Date Recorded In the past 12 months has [employer], or [employer] threatened to shut off services in your [...] place to sleep or slept in a correction (including now)? No 11/05/2023 Housing Stability Vital Sign Answer Gilbert e Recorded In the last 12 months, was t here a time when you were not able to pay the mortgage or rent on time? No 04/28/2024 In the past 12 months, how m any times have you moved where you were living? 0 04/28/2024 At any time in the past 12 m [facility], were you homeless or living in a correction (including now)? No 04/28/2024 Sex and Gender Information Value Date Recorded Sex Assigned at Not on file Legal Sex Male 11:05 AM EDT Gender Identity Not on file Sexual Orientation Not on file documented as of this encounter Miscellaneous Notes * Telephone Encounter - Ayden Nina RN - 07/10/2024 9:24 AM EST Aiden Oviedo Eh Parra. contacted to remind of scheduled venogram on 07/15/[address] [facility]. Arrival time 0800 for procedure time of 0900. Pt states he was told this would be a 3 hour procedure and states they are working on his fistula. I do see that the procedure is scheduled for 3 hours, under visible notesit states this is a venogram procedure. Pt states he already spoke to someone regarding the surgery . I informed the patient to follow their instructions incase he has an additional procedure that Andrea not able to see on my board. Pt will be NPO after midnight. Need for route cdl driver reviewed. Directionsprovided. Verbalizes understanding and all questions answered. Pre-op call complete. documented in this encounter Plan of Treatment Upcoming Encounters Date Type Department Care Team (Late st Contact Info) Description 07/15/2024 9:00 AM EST Hospital Encounter [facility] Interventional Radiology [address] [place] [phone] Herve Carrillo MD [address] [facility] [address] [place] [address] documented as of this encounter Visit Diagnoses Not on filedocumented in this encounter Additional Health Concerns Assessment Noted Time PHQ-9 Depression Total Score: 0 12/06/19 18 3:00 PM EDT documented as of this encounter Care Teams Ice Grinder Relationship Specialty Start Date End Date Edgar Fournier MD [address] [place] [address] [place] [address] PCP - General 12/22/21 Maile Valles, JANA Txp Post Coordinator Transplant Hepatology 11/07/17 Jack Ordoñez MD [address] [place] [phone] Consulting Physician Transplant Hepatology 01/05/18 Estephania Sharif, DarrianD Pharmacist Pharmacist 11/11/19 documented as of this encounter
--- OUTSIDE RECORDS SUMMARY | 2024-07-12 12:22 | XMS_ITS | Encounter Summary ---
Author Organization [facility] Address [address] [place] [address] Care Team Providers Care Cook Box Filler Name Role Phone Maile Valles RN Unavailable Unavail able Jack Ordoñez MD Unavailable [phone] Estephania Sharif PharmD Unavailable Christine Edgar Tolentino MD Primary Care Provider [phone] Source Comments This information has been disclosed [...] release of HIV test results or diagnoses. [id number] Health Encounter Details Date Type Department Care Team (Latest Contact Info) Description 05/11/2024 Travel Social History Tobacco Use Types Packs/Day Years Used Date Smoking Tobacco: Never Smokeless Tobacco: Never Alcohol Use Standard Drinks/Week Comments Never 0 (1 standard drink = 0.6 oz pur e alcohol) Utilities Answer Date Recorded In the past 12 months has [employer] e electric, gas, oil, or water company [...] place to sleep or slept in a nursing home (including now)? No 11/05/2023 Housing Stability Vital Sign Answer Gilbert e Recorded In the last 12 months, was t here a time when you were not able to pay the mortgage or rent on time? No 04/28/2024 In the past 12 months, how m any times have you moved where you were living? 0 04/28/2024 At any time in the past 12 m [facility], were you homeless or living in a nursing home (including now)? No 04/28/2024 Sex and Gender Information Value Date Recorded Sex Assigned at Not on file Legal Sex Male 11:05 AM EDT Gender Identity Not on file Sexual Orientation Not on file documented as of this encounter Plan of Treatment Upcoming Encounters Date Type Department Care Team (Late st Contact Info) Description 07/15/2024 9:00 AM EST Hospital Encounter [facility] Interventional Radiology [address] [place] [phone] Herve Carrillo MD [address] [facility] [address] [place] [phone] documented as of this encounter Visit Diagnoses Not on filedocumented in this encounter Additional Health Concerns Assessment Noted Time PHQ-9 Depression Total Score: 0 12/06/19 18 3:00 PM EDT documented as of this encounter Care Teams Cook Box Filler Relationship Specialty Start Date End Date Edgar Fournier MD [address] [place] [address] [place] [address] PCP - General 12/22/21 Maile Valles, RN Txp Post Coordinator Transplant Hepatology 11/07/17 Jack Ordoñez MD [address] [place] [phone] Consulting Physician Transplant Hepatology 01/05/18 Estephania Sharif, PharmD Pharmacist Pharmacist 11/11/19 documented as of this encounter
--- OUTSIDE RECORDS SUMMARY | 2024-07-12 12:22 | XMS_ITS | Encounter Summary ---
Author Organization [facility] Address [address] [place] [address] Care Team Providers Care Applications Instructor Name Role Phone Maile Valles RN Unavailable Unavail able Jack Ordoñez MD Unavailable [phone] Estephania Sharif PharmD Unavailable Christine Edgar Tolentino MD Primary Care Provider [phone] Source Comments This information has been disclosed [...] release of HIV test results or diagnoses. [id number] Health Encounter Details Date Type Department Care Team (Late st Contact Info) Description 07/05/2024 Orders Only [facility] Liver Transplant at [facility] [address] [facility] [address] [place] [address] Jack Ordoñez MD [address] [place] [phone] Liver replaced by transplant ([facility]-HCC) (Primary Dx); Immunosuppressive management encounter following liver transplant (CMS-HCC) Social History Tobacco Use Types Packs/Day Years [...] place to sleep or slept in a half-way (including now)? No 11/05/2023 Housing Stability Vital Sign Answer Gilbert e Recorded In the last 12 months, was t here a time when you were not able to pay the mortgage or rent on time? No 04/28/2024 In the past 12 months, how m any times have you moved where you were living? 0 04/28/2024 At any time in the past 12 m [facility], were you homeless or living in a half-way (including now)? No 04/28/2024 Sex and Gender Information Value Date Recorded Sex Assigned at Not on file Legal Sex Male 11:05 AM EDT Gender Identity Not on file Sexual Orientation Not on file documented as of this encounter Plan of Treatment Upcoming Encounters Date Type Department Care Team (Late st Contact Info) Description 07/15/2024 9:00 AM EST Hospital Encounter [facility] Interventional Radiology [address] [place] [address] Herve Carrillo MD [address] [place] [address] Scheduled Orders Name Type Priority Associated Diagnoses Orde r Schedule CBC Lab Routine Liver replaced by transplant (CMS-HCC) Immunosuppressive management encounter following liver transplant (CMS-HCC) 52 Occurrences starting 07/10/2024 until 07/05/2025 Differential Lab Routine Liver replaced by transplant (CMS-HCC) Immunosuppressive management encounter following liver transplant (CMS-HCC) 52 Occurrences starting 07/10/2024 until 07/05/2025 Hepatic Function Panel Lab Routine Liver replaced by transplant (CMS-HCC) Immunosuppressive management encounter following liver transplant (CMS-HCC) 52 Occurrences starting 07/10/2024 until 07/05/2025 Renal Function Panel w/EGFR Lab Routine Liver replaced by transplant (CMS-HCC) Immunosuppressive management encounter following liver transplant (CMS-HCC) 52 Occurrences starting 07/10/2024 until 07/05/2025 Cyclosporine level Lab Routine Liver replaced by transplant (CMS-HCC) Immunosuppressive management encounter following liver transplant (CMS-HCC) 80 Occurrences starting 07/10/2024 until 07/05/2025 documented as of this encounter Visit Diagnoses Diagnosis Liver replaced by transplant (CMS-HCC)- Primary Liver replaced by transplant Immunosuppressive management encounter following liver transplant (CMS-HCC) documented in this encounter Additional Health Concerns Assessment Noted Time PHQ-9 Depression Total Score: 0 12/06/19 18 3:00 PM EDT documented as of this encounter Care Teams Applications Instructor Relationship Specialty Start Date End Date Edgar Fournier MD [address] [place] [phone] PCP - General 12/22/21 Maile Valles, RN Txp Post Coordinator Transplant Hepatology 11/07/17 Jack Ordoñez MD [address] [place] [phone] Consulting Physician Transplant Hepatology 01/05/18 Estephania Sharif, DarrianD Pharmacist Pharmacist 11/11/19 documented as of this encounter
--- OUTSIDE RECORDS SUMMARY | 2024-07-12 12:22 | XMS_ITS | Encounter Summary ---
Author Organization [facility] Address [address] [place] [address] Care Team Providers Care Armature Rewinder Name Role Phone Maile Valles RN Unavailable Unavail able Jack Ordoñez MD Unavailable [phone] Estephania Sharif PharmD Unavailable Christine Edgar Tolentino MD Primary Care Provider [phone] Source Comments This information has been disclosed [...] release of HIV test results or diagnoses. [id number] Health Encounter Details Date Type Department Care Team (Late st Contact Info) Description 06/11/2024 Telephone [facility] Vascular Access at [facility] [address] [facility] [address] [place] [address] Anna Daniels MA Social History Tobacco Use Types Packs/Day Years Used Date Smoking Tobacco: Never Smokeless Tobacco: Never Alcohol Use Standard Drinks/Week Comments Never 0 (1 standard drink = 0.6 oz pur e alcohol) Utilities Answer Date Recorded In the past 12 months has th e electric, gas, oil, or water [employer] threatened to shut off services in your [...] time in the past [address] [facility], were you homeless or living in a nursing home (including now)? No 04/28/2024 Sex and Gender Information Value Date Recorded Sex Assigned at Not on file Legal Sex Male 11:05 AM EDT Gender Identity Not on file Sexual Orientation Not on file documented as of this encounter Miscellaneous Notes * Telephone Encounter - Anna Daniels MA - 06/11/2024 3:31 PM EDT The patient placed a call to the office. He was referred to Interventional Radiology. Their office contacted him to schedule his procedure however he was hospitalized during that time. He was requesting the number to set up the procedure. Direct # [phone] given to the patient and transferred him to their department. documented in this encounter Plan of Treatment Upcoming Encounters Date Type Department Care Team (Late st Contact Info) Description 07/15/2024 9:00 AM EST Hospital Encounter [facility] Interventional Radiology [address] [place] [phone] Herve Carrillo MD [address] [facility] [address] [place] [phone] documented as of this encounter Visit Diagnoses Not on filedocumented in this encounter Additional Health Concerns Assessment Noted Time PHQ-9 Depression Total Score: 0 12/06/19 18 3:00 PM EDT documented as of this encounter Care Teams Armature Rewinder Relationship Specialty Start Date End Date Edgar Fournier MD [address] [place] [address] [place] [address] PCP - General 12/22/21 Maile Valles, RN Txp Post Coordinator Transplant Hepatology 11/07/17 Jack Ordoñez MD [address] [place] [phone] Consulting Physician Transplant Hepatology 01/05/18 Estephania Sharif, DarrianD Pharmacist Pharmacist 11/11/19 documented as of this encounter
--- OUTSIDE RECORDS SUMMARY | 2024-07-12 12:22 | XMS_ITS | Encounter Summary ---
Author Organization [facility] Address [facility] [place] [address] Care Team Providers Care Naphthalene Still Operator Name Role Phone Maile Valles RN Unavailable Unavail able Jack Ordoñez MD Unavailable [phone] sEtephania Sharif PharmD Unavailable Christine Edgar Tolentino MD Primary Care Provider [phone] Source Comments This information has been disclosed [...] release of HIV test results or diagnoses. [id number] Reason for Visit * Reason Comments Appointment Encounter Details Date Type Department Care Team (Late st Contact Info) Description 05/16/2024 Telephone [facility] Interventional Radiology [facility] [place] [address] Sravanthi Barraza Appointment Social History Tobacco Use Types Packs/Day Years Used Date Smoking Tobacco: Never Smokeless Tobacco: Never Alcohol Use Standard Drinks/Week Comments Never 0 (1 standard drink = 0.6 oz pur e alcohol) Utilities Answer Date Recorded In the past 12 months has th e electric, gas, oil, or water [employer] threatened to shut off services in your [...] place to sleep or slept in a chcf (including now)? No 11/05/2023 Housing Stability Vital Sign Answer Gilbert e Recorded In the last 12 months, was t here a time when you were not able to pay the mortgage or rent on time? No 04/28/2024 In the past 12 months, how m any times have you moved where you were living? 0 04/28/2024 At any time in the past 12 m [facility], were you homeless or living in a chcf (including now)? No 04/28/2024 Sex and Gender Information Value Date Recorded Sex Assigned at Not on file Legal Sex Male 11:05 AM EDT Gender Identity Not on file Sexual Orientation Not on file documented as of this encounter Miscellaneous Notes * Telephone Encounter - Sravanthi Barraza - 05/16/2024 12:13 PM EDT In an attempt to schedule Aiden Stauffer Jr. for an IR Procedure, patient is the hospital ([facility]) in [facility]. Stated he was trying to get in touch with the Transplant team here at [facility] I asked that patient return call to [phone] opt 1 to schedule when discharged. documented in this encounter Plan of Treatment Upcoming Encounters Date Type Department Care Team (Late st Contact Info) Description 07/15/2024 9:00 AM EST Hospital Encounter [facility] Interventional Radiology [address] [place] [phone] Herve Carrillo MD [address] [facility] [address] [place] [phone] documented as of this encounter Visit Diagnoses Not on filedocumented in this encounter Additional Health Concerns Assessment Noted Time PHQ-9 Depression Total Score: 0 12/06/19 18 3:00 PM EDT documented as of this encounter Care Teams Naphthalene Still Operator Relationship Specialty Start Date End Date Edgar Fournier MD [address] [place] [phone] PCP - General 12/22/21 Maile Valles, RN Txp Post Coordinator Transplant Hepatology 11/07/17 Jack Ordoñez MD [address] [place] [phone] Consulting Physician Transplant Hepatology 01/05/18 Estephania Sharif, Wilbert Pharmacist Pharmacist 11/11/19 documented as of this encounter
--- OUTSIDE RECORDS SUMMARY | 2024-07-12 12:22 | XMS_ITS | Encounter Summary ---
Author Organization [facility] Address [address] [place] [address] Care Team Providers Care Curriculum And Assessment Coordinator Name Role Phone Maile Valles RN Unavailable Unavail able Jack Ordoñez MD Unavailable [phone] Estephania Sharif PharmD Unavailable Christine Edgar Tolentino MD Primary Care Provider [phone] Source Comments This information has been disclosed [...] release of HIV test results or diagnoses. [id number] Reason for Visit * Auth/Cert (Routine) Specialty Diagnoses / Procedures Referred By Contac t Referred To Contact Cardiology [facility] Echocardiography at [facility] [address] [facility] [address] [place] [address] Phone: tel: fax: Referral ID Status Reason Start Date Expiration Date Visits Re quested Visits Authorized [id number] 1 1 Encounter Details Date Type Department Care Team (Latest Contact Info) Description 05/21/2024 11:28 AM EDT - 05/21/2024 11:59 PM EDT Hospital Encounter [facility] Echocardiography at [facility] [address] [place] [address] Marcelino Montalvo III, MD [address] [place] [address] ESRD (end stage renal disease) ([facility]) Discharge Disposition: Home or Self Care WITHOUT Home Care Services Social History Tobacco Use Types Packs/Day Years Used Date Smoking Tobacco: Never Smokeless Tobacco: Never Alcohol Use Standard Drinks/Week Comments Never 0 (1 standard drink = 0.6 oz pur e alcohol) Utilities Answer Date Recorded In the past 12 months has th e [employer], gas, oil, or water [employer] threatened to shut off services in your [...] any time in the past 12 m [facility], were you homeless or living in a assisted (including now)? No 04/28/2024 Sex and Gender Information Value Date Recorded Sex Assigned at Not on file Legal Sex Male 11:05 AM EDT Gender Identity Not on file Sexual Orientation Not on file documented as of this encounter Last Filed Vital Signs Vital Sign Reading Time Taken Comments Blood Pressure - - Pulse - - Temperature - - Respiratory Rate - - Oxygen Saturation - - Inhaled Oxygen Concentration - - Weight 137 kg (302 lb) 05/21/2024 12:30 PM EDT Height - - Body Mass Index 44.6 04/28/2024 1:30 AM EDT documented in this encounter Medications at Time of Discharge ALPRAZolam (XANAX) 0.5 MG tablet Take 1 tablet (0.5 mg total) by mouth at bedtime as needed for Sleep. aspirin 81 MG chewable tablet Chew 1 tablet (81 mg total) by mouth daily with breakfast. 30 tablet 5 10/17/2017 carBAMazepine (TEGRETOL) 200 mg tablet Take 1 tablet (200 mg total) by mouth 2 times a day. carvediloL (COREG) 25 MG tablet Starting 04/20, take 1 tablet (25 mg total) by mouth 2 times a day. 60 tablet 04/20/2024 cinacalcet (SENSIPAR) 90 MG tablet Take 1 tablet (90 mg total) by mouth daily with breakfast. cycloSPORINE modified 25 MG capsuleIndicati ons:Prevention of Liver Transplant Rejection Take 4 capsules (100 mg total) by mouth every morning AND 5 capsules (125 mg total) at bedtime. 270 capsule 5 05/28/2024 2:50 PM EDT 02/19/2024 doxazosin (CARDURA) 8 MG tablet Take 1 tablet (8 mg total) by mouth at bedtime. 05/12/2018 entecavir (BARACLUDE) 0.5 MG tablet Take 1 tablet (0.5 mg total) by mouth every 7 days. 4 tablet 5 01/05/2021 ergocalciferol (ERGOCALCIFEROL ) 1,250 mcg (50,000 unit) capsule Take 1 capsule (50,000 Units total) by mouth every Monday, Monday, and Monday. folic acid (FOLVITE) 1 MG tablet Take 1 tablet (1 mg total) by mouth daily. 30 tablet 11/02/2021 gabapentin (NEURONTIN) 300 MG capsule Take 1 capsule (300 mg total) by mouth daily. 90 capsule 11/09/2023 2:38 PM EDT 11/10/2023 insulin glargine (LANTUS) 100 unit/mL injection Inject subcutaneously 2 times a day. Up to 30 units twice daily as needed per patient methocarbamoL (ROBAXIN) 500 MG tablet Take 1 tablet (500 mg total) by mouth if needed. montelukast (SINGULAIR) 10 mg tablet Take 1 tablet (10 mg total) by mouth daily. 03/08/2022 mycophenolate (CELLCEPT) 250 mg capsule Take 1 capsule (250 mg total) by mouth 2 times a day. 180 capsule 1 05/28/2024 2:50 PM EDT 01/17/2024 naloxone (NARCAN) 4 mg/actuation Robertson Apply 1 spray in one nostril if needed. Call 911. May repeat dose in other nostril if no response in 3 minutes. 2 each 1 04/18/2024 2:28 PM EDT 04/18/2024 NIFEdipine (PROCARDIA-XL) 90 MG (OSM) 24 hr tablet Take 1 tablet (90 mg total) by mouth if needed. 04/23/2018 pantoprazole (PROTONIX) 40 MG tablet Take 1 tablet (40 mg total) by mouth 2 times a day. 60 tablet 5 05/09/2022 3:28 PM EDT 05/06/2022 polyethylene glycol (MIRALAX) 17 gram packet Take 17 g by mouth daily as needed (mild constipation (no BM for 24 hrs)). 14 packet 06/25/2020 testosterone cypionate (DEPOTESTOTERON E CYPIONATE) 200 mg/mL injection Inject into the muscle every 28 days. documented as of this encounter Plan of Treatment Upcoming Encounters Date Type Department Care Team (Late st Contact Info) Description 07/15/2024 9:00 AM EST Hospital Encounter [facility] Interventional Radiology [address] [place] [address] Herve Carrillo MD [address] [facility] [address] [place] [address] documented as of this encounter Procedures Procedure Name Priority Date/Time Associated Diagnosis Comments ECHO STRESS PHARMACOLOGIC WITH CONTRAST Routine 05/21/2024 2:18 PM EDT ESRD (end stage renal disease) ([facility]) documented in this encounter Results * Echo Stress Pharmacologic w/Contrast (05/21/2024 2:18 PM EDT) 05/21/2024 11:5 6 AM EDT Narrative RADNET - 05/22/2024 8:31 AM EDT ??* [facility] Diagnostic Cardiology Clinic - Echocardiology Lab* ?[address] [facility] [address], [address] ? [place], [place] [address] ? Stress Echocardiogram Patient: ? Aiden Stauffer W ? Room: ?? STRESS LAB Height: 69in MR Number: ? [id number] ?: ?1975 Weight: 291.9lb Account: ? [id number] ?Gender: M ?BP: ? 172 / 86 Study Date: ?05/21/2024 ?Age: ?49 ? BSA: ?2.6m^2 Referring physician: ?Marcelino Montalvo Iii Interpreting physician: Mohinder Miller PERFORMING ?? [facility]-Mohinder Miller COMMERCIAL LINES MANAGER ??Maru Neff ORDERING ? Marcelino Montalvo Iii REFERRING ?Marcelino Montalvo Iii ATTENDING ?Marcelino Montalvo Iii Procedure:ECHO STRESS PHARMACOLOGIC WITH ?? Order: Accession CONTRAST ?Number:[id number] Indications: ?ESRD (end stage renal disease) (N18.6). [...] was augmented by the addition of hand senior c software engineer. The infusion was terminated target heart rate [...] peak heart rate and blood pressure was 95870yn Hg/min. ??Stress testing did not produce any [...] range. Reviewed and confirmed by Mohinder Miller [id number]:44 Procedure Note Mohinder Miller MD - 05/22/2024 * [facility] Diagnostic Cardiology Clinic - EchocardiologyLab* [address] [facility] [address], [place] [address] Stress Echocardiogram Patient: Aiden Stauffer Room: STRESS LAB Height: 69in MR Number: [id number] : 1975 Weight: 291.9lb Account: [id number] Gender: M BP: 172 / 86 Study Date: 05/21/2024 Age: 49 BSA: 2.6m^2 Referring physician: Marcelino Montalvo Iii Interpreting physician: Mohinder Miller PERFORMING p-Mohinder Miller COMMERCIAL LINES MANAGER Maru Neff ORDERING Marcelino Montalvo Iii REFERRING Marcelino Montalvo Iii ATTENDING Marcelino Montalvo Iii Procedure:ECHO STRESS PHARMACOLOGIC WITH Order: Accession CONTRAST Number:[id number] Indications: ESRD (end stage renal disease) (N18.6). [...] was augmented by the addition of hand senior c software engineer. The infusion was terminatedtarget heart rate achievement. [...] heart rate). The maximal predicted heart rate wym694ely. The target heart rate was 145bpm. The target heart rate was achieved.The heart rate response to stress is normal. There is a normal resting blood pressure with an appropriate response to stress. The rate-pressureproduct for the peak heart rate and blood pressure was 52275ez Hg/min. Stress testing did not produce any [...] 2.1 1.3 FS (L) 22 % 25 - 43 PW, ED (N) 1.0 cm 0.6 [...] Vol, ES, 1-p (H) 78 ml 18 58 A4C Vol/bsa, ES, (N) 30 ml/m^2 12 - 37 1-p A4C Vol, ES, 1-p (H) 91 ml 18 58 A2C Vol/bsa, ES, (N) 35 ml/m^2 [...] range. Reviewed and confirmed by Mohinder Miller [id number]:30:44 us Marcelino Montalvo III, MD CV ECHO ORDERABLES Final Result SARAH documented in this encounter Visit Diagnoses Diagnosis ESRD (end stage renal disease) (CMS-HCC) End stage renal disease documented in this encounter Administered Medications Inactive Administered Medications - up to 3 most recent administrations Medication Order MAR Action Action Date Dose Rate Site perflutren (OPTISON) Susp 0.66 mg 0.66 mg, Intravenous, IMG once as needed, contrast, Starting on Mon05/21/24 at 1347, For 1 dose Given 05/21/2024 1:45 PM EDT 0.66 mg documented in this encounter Additional Health Concerns Assessment Noted Time PHQ-9 Depression Total Score: 0 12/06/19 18 3:00 PM EDT documented as of this encounter Care Teams Curriculum And Assessment Coordinator Relationship Specialty Start Date End Date Edgar Fournier MD [address] [place] [phone] PCP - General 12/22/21 Maile Valles, RN Txp Post Coordinator Transplant Hepatology 11/07/17 Jack Ordoñez MD [address] [place] [phone] Consulting Physician Transplant Hepatology 01/05/18 Estephania Sharif, DarrianD Pharmacist Pharmacist 11/11/19 documented as of this encounter
--- OUTSIDE RECORDS SUMMARY | 2024-07-12 12:23 | XMS_ITS | Encounter Summary ---
Author Organization [facility] Address [address] [place] [address] Care Team Providers Care Sprinkler Driver Name Role Phone Maile Valles RN Unavailable Unavail able Jack Ordoñez MD Unavailable [phone] Estephania Sharif PharmD Unavailable Christine Edgar Tolentino MD Primary Care Provider [phone] Source Comments This information has been disclosed [...] release of HIV test results or diagnoses. [id number] Reason for Referral * Imaging/Cardiovascular Scan (Routine) - Denied Specialty Diagnoses / Procedures Referred By Contac t Referred To Contact Cardiology Diagnoses Pre-transplant evaluation for chronic kidney disease Procedures Echo Stress Pharmacologic System, Provider Not In Referral ID Status Reason Start Date Expiration Date Visits Re quested Visits Authorized [id number] Denied 04/05/2024 10/02/2024 1 0 Encounter Details Date Type Department Care Team (Late st Contact Info) Description 04/05/2024 Orders Only [facility] Cardiac Stress Lab at [facility] Office [address] [place] [address] Earnest Ibarra RN Pre-transplant evaluation for chronic kidney disease (Primary Dx) Social History Tobacco Use Types Packs/Day Years Used Date Smoking Tobacco: Never Smokeless Tobacco: Never Alcohol Use Standard Drinks/Week Comments Never 0 (1 standard drink = 0.6 oz pur e alcohol) Utilities Answer Date Recorded In the past 12 months has th e [employer], gas, oil, or water [employer] threatened to shut off services in your home? No 11/05/2023 AUDIT-C Answer Date Recorded Q1: How often do you have a drink containing alcohol? Never 11/05/2023 Q2: How many drinks containi ng alcohol do you have on a typical day when you are drinking? Patient does not drink Q3: How often do you have si x or more drinks on one occasion? Never 11/05/2023 PHQ-2 Answer Date Recorded PHQ-2 Total Score 0 04/07/2022 Hunger Vital Sign Answer Date Recorded Within the past 12 months, y ou worried that your food would run out before you got the money to buy more. Never true 11/05/19 Within the past 12 months, t he food you bought just didn't last and you didn't have money to get more. Never true 11/05/2023 PRAPARE - Transportation Answer Date Re corded In the past 12 months, has l ack of transportation kept you from medical appointments or from getting medications? No 10/13 In the past 12 months, has l ack of transportation kept you from meetings, work, or from getting things needed for daily living? No 11/05/2023 Housing Stability Vital Sign Answer [...] place to sleep or slept in a long-term (including now)? No 11/05/2023 Sex and Gender Information Value Date Recorded Sex Assigned at Not on file Legal Sex Male 11:05 AM EDT Gender Identity Not on file Sexual Orientation Not on file documented as of this encounter Plan of Treatment Upcoming Encounters Date Type Department Care Team (Late st Contact Info) Description 07/15/2024 9:00 AM EST Hospital Encounter [facility] Interventional Radiology [address] [place] [phone] Herve Carrillo MD [address] [facility] [address] [place] [phone] Scheduled Orders Name Type Priority Associated Diagnoses Order Schedule Echo Stress Pharmacologic Echocardiography Routine Pre-transplant evaluation for chronic kidney disease 1 Occurrences starting 04/05/2024 until 04/05/2025 documented as of this encounter Visit Diagnoses Diagnosis Pre-transplant evaluation for chronic kidney disease- Primary Other specified pre-operative examination documented in this encounter Additional Health Concerns Assessment Noted Time PHQ-9 Depression Total Score: 0 12/06/19 18 3:00 PM EDT documented as of this encounter Care Teams Sprinkler Driver Relationship Specialty Start Date End Date Edgar Fournier MD [address] [place] [address] [place] [phone] PCP - General 12/22/21 Maile Valles, RN Txp Post Coordinator Transplant Hepatology 11/07/17 Jack Ordoñez MD [address] [place] [phone] Consulting Physician Transplant Hepatology 01/05/18 Estephania Sharif, DarrianD Pharmacist Pharmacist 11/11/19 documented as of this encounter
--- OUTSIDE RECORDS SUMMARY | 2024-07-12 12:23 | XMS_ITS | Encounter Summary ---
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 Administered Medications Times are shown in EDT. Scheduled Medication Order 04/26/2024 04/27/2024 04/28/2024 alteplase (ACTIVASE) 1 mg in sterile water (PF) syringe for line care (COMPLETED) 1 mg, Intracatheter, Once, On 04/28/24 at 0700, For 1 dose, Allow to dwell for a minimum of 30 min. Assess catheter patency by attempting to aspirate for blood return. If no blood return, allow alteplase to dwell for a total of 120 min. If catheter is still occluded, a second dose of equal amount may be instilled. After catheter function has been restored, ASPIRATE 4 mL to 5 mL of blood to remove alteplase and the residual clot. Then gently irrigate the catheter with 0.9% NS. If the patient's catheter volume is greater than 1 mL, nurse to add an appropriate volume with 0.9% NaCl to appropriate volume for catheter. Two alteplase syringes will not be required in most cases. 0757 (Given - Provid er: Terry Magallon RN) aspirin chewable tablet 81 mg 81 mg, Oral, Daily with breakfast, First dose on 04/28/24 at 0800 0751 (Given - Provid er: Latrice Hyman RN) carBAMazepine (TEGRETOL) tablet 200 mg 200 mg, Oral, 2 times daily, First dose on 04/28/24 at 0300 0422 (Hold - Provide r: Dominic Patricio RN - Reason: Other) carvediloL (COREG) tablet 25 mg 25 mg, Oral, 2 times daily, First dose on 04/28/24 at 0900 0751 (Given - Provid er: Latrice Hyman RN) cinacalcet (SENSIPAR) tablet 90 mg 90 mg, Oral, Daily with breakfast, First dose on Mon04/28/24 at 0800, SWALLOW WHOLE; DO NOT CRUSH OR CHEW 0752 (Given - Provid er: Latrice Hyman RN) cycloSPORINE modified (NEORAL/GENGRAF) capsule 100 mg(Linked Group 1) 100 mg, Oral, Every morning, First dose (after last modification) on Mon04/28/24 at 0900, LEVEL 2 HAZARDOUS MEDICATION 0845 (Given - Provid er: Latrice Hyman RN) cycloSPORINE modified (NEORAL/GENGRAF) capsule 125 mg(Linked Group 1) 125 mg, Oral, At Bedtime (2100), First dose (after last modification) on 04/28/24 at 0400, LEVEL 2 HAZARDOUS MEDICATION 0418 (Given - Provid er: Dominic Patricio RN) dextrose 10%-water (D10W) IV soln (COMPLETED)(Linked Group 2) 25 g, Intravenous, Once, On 04/27/24 at 2201, For 1 dose, FOR SMART PUMP: Set volume to be infused to 250 mL = 25 grams Administer D10 250 mL IV with Insulin 5 units dose For Smart Pump: Set volume to be infused; 125 ml for 12.5 grams or 250 mL for 25 grams. 221 (New Bag - Provider: Benigno Short RN) 001 (Stopped - Provider: Salo Field RN) doxazosin (CARDURA) tablet 8 mg 8 mg, Oral, At Bedtime (2100), First dose on Mon04/28/24 at 0330, Therapeutic Incterchange: terazosin (HYTRIN) 10 mg daily - doxazosin (CARDURA) 8 mg daily 0422 (Hold - Provide r: Dominic Patricio RN - Reason: Other) entecavir (BARACLUDE) tablet 0.5 mg 0.5 mg, Oral, Every 7 days, First dose on Mon05/03/24 at 0900, ADMINISTER ON EMPTY STOMACH (2 HOURS BEFORE OR AFTER MEALS). LEVEL 2 HAZARDOUS MEDICATION ergocalciferol capsule 50,000 Units 50,000 Units, Oral, Every Monday, Monday, Monday (Once per day on Monday), First dose on Mon04/29/24 at 0900 folic acid (FOLVITE) tablet 1 mg 1 mg, Oral, Daily, First dose on 04/28/24 at 0900 0751 (Given - Provid er: Latrice Hyman RN) For Catheter Lock: gentamicin 0.32 mg/mL and citrate 4% antibiotic IV lock (COMPLETED) 5 mL, Intracatheter, Once, On 04/28/24 at 0530, For 1 dose, INSTILL PER LUMEN CAPACITY AFTER EACH DIALYSIS OR TO PREVENT OCCLUSION. GENTAMICIN 0.32 mg/mL IN CITRATE 4%; PROTECT FROM LIGHT 1012 (Given - Provid er: Li Quan RN) furosemide (LASIX) injection 40 mg (COMPLETED) 40 mg, Intravenous, Once, On 04/27/24 at 2201, For 1 dose, Rate of administration not to exceed 20mg/minute. 222 (Given - Provider: Benigno Short RN) heparin (porcine) injection 5,000 Units 5,000 Units, Subcutaneous, Every 8 hours scheduled (3 times per day), First dose on 04/28/24 at 0200 0423 (Hold - Provide r: Dominic Patricio RN - Reason: Other)1300 (Due) insulin glargine (LANTUS) injection 10 Units 10 Units, Subcutaneous, At Bedtime (2100), First dose on 04/28/24 at 0330, Do not hold medication unless instructed by provider. HIGH ALERT MEDICATION 0421 (Not Given - Provider: Dominic Patricio RN - Reason: Other - Comment: hold per md) insulin lispro (humaLOG/ADMELOG) injection 0-5 Units 0-5 Units, Subcutaneous, 3 times daily before meals, First dose on 04/28/24 at 0900, HIGH ALERT MEDICATION 0751 (Not Given - Provider: Latrice Hyman RN - Reason: Order parameters not met)1300 (Due) insulin regular (HumuLIN R) injection 5 Units (COMPLETED)(Linked Group 2) 5 Units, Intravenous, Once, On 04/27/24 at 2201, For 1 dose, Administer with D10W 25 gram (250 mL) dose 2218 (Given - Provider: Benigno Short RN) montelukast (SINGULAIR) tablet 10 mg 10 mg, Oral, Daily, First dose on 04/28/24 at 0900 0751 (Given - Provid er: Latrice Hyman RN) mycophenolate (CELLCEPT) capsule 250 mg 250 mg, Oral, 2 times daily, First dose on 04/28/24 at 0300, LEVEL 2 HAZARDOUS MEDICATION 0257 (Given - Provid er: Dominic Patricio RN) pantoprazole (PROTONIX) EC tablet 40 mg 40 mg, Oral, 2 times daily, First dose on 04/28/24 at 0900, Do Not Crush 0751 (Given - Provid er: Latrice Hyman RN) PRN Medication Order 04/26/2024 04/27/2024 04/28/2024 acetaminophen (TYLENOL) tablet 650 mg 650 mg, Oral, Every 4 hours PRN, Body Temperature > 101F, Pain Score (NRS) =, NRS 1-10; use prior to opioids if opiods are also ordered, then reassess pain score within 90 minutes, Starting on 04/28/24 at 0134, Maximum dose of acetaminophen is 4000 mg (4 grams) from all sources in 24 hours. 0812 (Given - Provid er: Latrice Hyman RN) ALPRAZolam (XANAX) tablet 0.5 mg 0.5 mg, Oral, Nightly PRN, Sleep, Starting on 04/28/24 at 0255 dextrose 10%-water (D10W) IV soln(Linked Group 3) 12.5 g, Intravenous, Every 15 min PRN, Low blood sugar, for glucose < 70 and alert but can not be corrected, orally or via feeding tube, Starting on 04/27/24 at 2230, Recheck blood sugar in 15 minutes and repeat treatment if glucose still < 70. For Smart Pump: Set volume to be infused; 125 ml for 12.5 grams or 250 mL for 25 grams. dextrose 10%-water (D10W) IV soln(Linked Group 3) 25 g, Intravenous, Every 15 min PRN, Low blood sugar, for glucose < 70 and not alert, Starting on 04/27/24 at 2230, Recheck glucose in 15 minutes and repeat treatment if glucose still < 70. For Smart Pump: Set volume to be infused; 125 ml for 12.5 grams or 250 mL for 25 grams. gabapentin (NEURONTIN) capsule 300 mg 300 mg, Oral, Nightly PRN, Other, Neuropathy, Starting on 04/28/24 at 0312 glucose chewable tablet 12 g 12 g, Oral, Every 15 min PRN, Low blood sugar, see admin instructions, Starting on 04/27/24 at 2230, TAKING PO: Patient has blood glucose between 50-70 mg/dL. o Give 15 grams of fast-acting carbohydrate (4 oz. fruit juice or 4 oz. non-diet soda or 3 glucose tablets). o Recheck blood sugar in 15 minutes and repeat if blood sugar is still between 50-70 mg/dL. Repeat as needed. Patient has blood glucose less than 50 mg/dL o Give 30 grams fast-acting carbohydrate (8 oz. fruit juice or 8 oz. of non-diet soda or 6 glucose tablets) on first attempt. o Recheck blood sugar in 15 minutes and repeat if blood sugar is still less than 50mg/dL. o If further attempts necessary, revert to 15 grams of carbohydrate. Repeat as needed. FEEDING TUBE: Patient has blood glucose between 50-70 mg/dL. o Give 15 grams of fast-acting carbohydrate (4 oz. fruit juice or 4 oz. non-diet soda). o Recheck blood sugar in 15 minutes and repeat if blood sugar is still between 50-70 mg/dL. Repeat as needed. Patient has blood glucose less than 50 mg/dL o Give 30 grams fast-acting carbohydrate (8 oz. fruit juice or 8 oz. of non-diet soda). o Recheck blood sugar in 15 minutes and repeat if blood sugar is still less than 50mg/dL. o If further attempts necessary, revert to 15 grams of carbohydrate. Repeat as needed. Labeled tablet strength may vary by deposition operator (may be expressed as grams of carbohydrates) per tablet. Each tablet = 4 grams of glucose. Do not give chewable tablets via feeding tube hydrOXYzine HCL (ATARAX) tablet 10 mg 10 mg, Oral, 3 times daily PRN, Itching, Starting on 04/28/24 at 0429 0418 (Given - Provid er: Dominic Patricio RN) methocarbamoL (ROBAXIN) tablet 500 mg 500 mg, Oral, Daily as needed, Muscle spasms, Starting on 04/28/24 at 0303 ondansetron (ZOFRAN-ODT) disintegrating tablet 4 mg 4 mg, Oral, Every 8 hours PRN, Nausea, Starting on 04/28/24 at 0304 0845 (Given - Provid er: Latrice Hyman RN) polyethylene glycol (MIRALAX) packet 17 g 17 g, Oral, Daily as needed, mild constipation (no BM for 24 hrs), Starting on 04/28/24 at 0305 sterile water (PF) Soln 2.2 mL(Linked Group 4) 2.2 mL, Intracatheter, Continuous PRN, For mixing Cathflo, Starting on 04/28/24 at 0707 Linked Groups Order Group 1: cycloSPORINE modified (NEORAL/GENGRAF) capsule 100 mgJump to med 100 mg, Oral, Every morning, First dose (after last modification) on 04/28/24 at 0900, LEVEL 2 HAZARDOUS MEDICATION And cycloSPORINE modified (NEORAL/GENGRAF) capsule 125 mgJump to med 125 mg, Oral, At Bedtime (2100), First dose (after last modification) on 04/28/24 at 0400, LEVEL 2 HAZARDOUS MEDICATION Group 2: dextrose 10%-water (D10W) IV soln (COMPLETED)Jump to med 25 g, Intravenous, Once, On 04/27/24 at 2201, For 1 dose, FOR SMART PUMP: Set volume to be infused to 250 mL = 25 grams Administer D10 250 mL IV with Insulin 5 units dose For Smart Pump: Set volume to be infused; 125 ml for 12.5 grams or 250 mL for 25 grams. And insulin regular (HumuLIN R) injection 5 Units (COMPLETED)Jump to med 5 Units, Intravenous, Once, On 04/27/24 at 2201, For 1 dose, Administer with D10W 25 gram (250 mL) dose And Fingerstick Blood Glucose now and every hour x 6 (CANCELED) STAT, Now then every 1 hour, First occurrence on 04/27/24 at 2201, For 6 occurrences Group 3: dextrose 10%-water (D10W) IV solnJump to med 12.5 g, Intravenous, Every 15 min PRN, Low blood sugar, for glucose < 70 and alert but can not be corrected, orally or via feeding tube, Starting on 04/27/24 at 2230, Recheck blood sugar in 15 minutes and repeat treatment if glucose still < 70. For Smart Pump: Set volume to be infused; 125 ml for 12.5 grams or 250 mL for 25 grams. Or dextrose 10%-water (D10W) IV solnJump to med 25 g, Intravenous, Every 15 min PRN, Low blood sugar, for glucose < 70 and not alert, Starting on 04/27/24 at 2230, Recheck glucose in 15 minutes and repeat treatment if glucose still < 70. For Smart Pump: Set volume to be infused; 125 ml for 12.5 grams or 250 mL for 25 grams. Group 4: alteplase (CATHFLO) injection 2 mg (CANCELED) 2 mg, Intracatheter, Continuous PRN, Administer to central line or PICC as needed for sluggish or clotted line., Starting on 04/28/24 at 0707, Allow to dwell for a minimum of 30 min. Assess catheter patency by attempting to aspirate for blood return. If no blood return, allow alteplase to dwell for a total of 120 min. If catheter is still occluded, a second dose of equal amount may be instilled. After catheter function has been restored, ASPIRATE 4 mL to 5 mL of blood to remove alteplase (Cathflo) and the residual clot. Then gently irrigate the catheter with 0.9% NS. And sterile water (PF) Soln 2.2 mLJump to med 2.2 mL, Intracatheter, Continuous PRN, For mixing Cathflo, Starting on 04/28/24 at 0707 documented in this encounter Additional Health Concerns Assessment Noted Time PHQ-9 Depression Total Score: 0 12/06/19 18 3:00 PM EDT documented as of this encounter Care Teams Chemistry Lab Instructor Relationship Specialty Start Date End Date Edgar Fournier [place] [address] PCP - General 12/22/21 Maile Valles, RN Txp Post Coordinator Transplant Hepatology 11/07/17 Jack Ordoñez MD [facility] [place] [address] Consulting Physician Transplant Hepatology 01/05/18 Estephania Sharif, PharmD Pharmacist Pharmacist 11/11/19 documented as of this encounter
--- OUTSIDE RECORDS SUMMARY | 2024-07-12 12:23 | XMS_ITS | Encounter Summary ---
Author Organization [facility] Address [address] [place] [id number] Care Team Providers Care Kiln Mechanic Name Role Phone Maile Valles RN Unavailable Unavail able Jack Ordoñez MD Unavailable Estephania Sharif PharmD Unavailable Christine Edgar Tolentino MD Primary Care Provider [phone] Source Comments This information has been disclosed [...] release of HIV test results or diagnoses. [id number] Encounter Details Date Type Department Care Team (Latest Contact Info) Description 04/13/2024 Travel Social History Tobacco Use Types Packs/Day Years Used Date Smoking Tobacco: Never Smokeless Tobacco: Never Alcohol Use Standard Drinks/Week Comments Never 0 (1 standard drink = 0.6 oz pur e alcohol) Utilities Answer Date Recorded In the past 12 months has The [employer] electric, gas, oil, or water company [...] in a [facility] (including now)? No 11/05/2023 Sex and Gender Information Value Date Recorded Sex Assigned at Not on file Legal Sex Male 11:05 AM EDT Gender Identity Not on file Sexual Orientation Not on file documented as of this encounter Plan of Treatment Upcoming Encounters Date Type Department Care Team (Late st Contact Info) Description 07/15/2024 9:00 AM EST Hospital Encounter [facility] Interventional Radiology [address] [place] [place] [address] Herve Carrillo MD [address] [facility] [place] [id number] documented as of this encounter Visit Diagnoses Not on filedocumented in this encounter Additional Health Concerns Assessment Noted Time PHQ-9 Depression Total Score: 0 12/06/19 18 3:00 PM EDT documented as of this encounter Care Teams Kiln Mechanic Relationship Specialty Start Date End Date Edgar Fournier MD [address] [place] [address] [place] [address] PCP - General 12/22/21 Maile Valles, JANA Txp Post Coordinator Transplant Hepatology 11/07/17 Jack Ordoñez MD [address] [place] [id number] Consulting Physician Transplant Hepatology 01/05/18 Estephania Sharif, DarrianD Pharmacist Pharmacist 11/11/19 documented as of this encounter
--- OUTSIDE RECORDS SUMMARY | 2024-07-12 12:23 | XMS_ITS | Encounter Summary ---
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 CONDUCTION DELAY ^ PROLONGED QT ^ ABNORMAL ECG ^ ??^ Confirmed by ADELINA, ??, MARY ANN ([id number]) on 04/18/2024 4:52:16 PM us Jacinto Pineda MD ECG ORDERABLES Final Result Performing Organization Address [facility] Co de Phone Number MUSE * (ABNORMAL) Renal Function Panel w/EGFR (04/17/2024 2:57 PM EDT) Sodium 138 133 - 146 mmol/L 04/17/2024 3:46 PM EDT [facility] Potassium 6.4(HH) 3.5 - 5.3 mmol/L 04/17/2024 3:46 PM EDT [facility] Comment:Critical Result K:6. 4 Called to and read back by: PAULINA MELGAR RN at: 04/17/2024 15:46:08 by:JACQUES Chloride 106 98 - 110 mmol/L 04/17/2024 3:46 PM EDT [facility] CO2 18(L) 21 - 33 mmol/L 04/17/2024 3:46 PM EDT [facility] Anion Gap 14 3 - 16 mmol/L 04/17/2024 3:46 PM EDT [facility] BUN 93(H) 7 - 25 mg/dL 04/17/2024 3:46 PM EDT [facility] Creatinine 11.39(H) 0.60 - 1.30 mg/dL 04/17/2024 3:46 PM EDT [facility] Glucose 145(H) 70 - 100 mg/dL 04/17/2024 3:46 PM EDT [facility] Calcium 7.7(L) 8.6 - 10.3 mg/dL 04/17/2024 3:46 PM EDT [facility] Phosphorus 5.3(H) 2.1 - 4.7 mg/dL 04/17/2024 3:46 PM EDT [facility] Albumin 3.6 3.5 - 5.7 g/dL 04/17/2024 3:46 PM EDT [facility] Osmolality, Calculated 317(H) 278 - 305 mOsm/kg 04/17/2024 3:46 PM EDT [facility] EGFR 5 04/17/2024 3:46 PM EDT [facility] Comment:As of 2021, the estimated [...] Disease. Am J Kidney Dis. 2020. Plasma 04/17/2024 2:57 PM EDT 04/17/2024 3:09 PM EDT us Jacinto Pineda MD LAB BLOOD ORDERABLES Final Res ult [facility] [address] * (ABNORMAL) POC Glucose Monitoring Device (04/17/2024 1:55 PM EDT) POC Glucose Monitoring Device 137(H) 70 - 100 mg/dL 04/17/2024 1:56 PM EDT [facility] Blood 04/17/2024 1:55 PM EDT 04/17/2024 1:56 PM EDT Eris Olguin MD POINT OF CARE TEST ORDERABLES Fi nal Result [facility] [address] * (ABNORMAL) POC Glucose Monitoring Device (04/17/2024 12:59 PM EDT) POC Glucose Monitoring Device 185(H) 70 - 100 mg/dL 04/17/2024 1:00 PM EDT [facility] Blood 04/17/2024 12:5 9 PM EDT 04/17/2024 1:00 PM EDT Eris Olguin MD POINT OF CARE TEST ORDERABLES Fi nal Result [facility] [address] * (ABNORMAL) POC Glucose Monitoring Device (04/17/2024 11:58 AM EDT) POC Glucose Monitoring Device 153(H) 70 - 100 mg/dL 04/17/2024 11:59 AM EDT [facility] Blood 04/17/2024 11:5 8 AM EDT 04/17/2024 11:59 AM EDT us Eris Olguin MD POINT OF CARE TEST ORDERABLES Fi nal Result [facility] [address] * (ABNORMAL) POC Glucose Monitoring Device (04/17/2024 10:52 AM EDT) POC Glucose Monitoring Device 197(H) 70 - 100 mg/dL 04/17/2024 10:53 AM EDT [facility] Blood 04/17/2024 10:5 2 AM EDT 04/17/2024 10:53 AM EDT us Eris Olguin MD POINT OF CARE TEST ORDERABLES Fi nal Result Performing Organization Address [facility] Co de Phone Number [facility] [address] * RACHAEL Rhythm Strip - Scan (04/17/2024 9:00 AM EDT) us Scanning Uchhim SCAN DOCS - NO RESULTS Final Res ult * (ABNORMAL) POC Glucose Monitoring Device (04/17/2024 8:39 AM EDT) POC Glucose Monitoring Device 137(H) 70 - 100 mg/dL 04/17/2024 8:40 AM EDT [facility] Blood 04/17/2024 8:39 AM EDT 04/17/2024 8:40 AM EDT us Eris Olguin MD POINT OF CARE TEST ORDERABLES Fi nal Result Performing Organization Address [facility] Co de Phone Number [facility] [address] [facility]. [address] * (ABNORMAL) Hepatitis B Lab Panel (HEMODIALYSIS PATIENTS ONLY) (04/17/2024 8:28 AM EDT) Hep B Surface Ag Nonreactive Nonreactive 04/17/2024 11:23 AM EDT [facility] Comment:Health Department no tified in accordance with reportable infectious disease guidelines. Hep B Core Total Ab Reactive(A) Nonreactive 04/17/2024 11:23 AM EDT [facility] Comment:Health Department no tified in accordance with reportable infectious disease guidelines. HBSAB NUMBER 370.00(H) 0.00 - 9.99 mIU/mL 04/17/2024 11:23 AM EDT [facility] Hep B S Ab Reactive(A) Nonreactive 04/17/2024 11:23 AM EDT [facility] Serum 04/17/2024 8:28 AM EDT 04/17/2024 8:57 AM EDT Narrative [facility] - 04/17/2024 11:23 AM EDT The results of the multi-test panel are consistent with a patient who has a history of resolved Hepatitis B infection and is immune due to natural infection. Eris Olguin MD LAB BLOOD ORDERABLES Final Resul t Performing Organization Address [facility] Co de Phone Number [facility] [address] * ECG 12 lead (MUSE) (04/17/2024 6:19 AM EDT) 04/17/2024 6:19 AM EDT Narrative MUSE - 04/17/2024 9:58 AM EDT Ventricular Rate: ??104 ??BPM Atrial Rate: ??104 ??BPM P-R Interval: ??288 ??ms QRS Duration: ??114 ??ms QT: ??358 ??ms QTc: ??470 ??ms R [place]: ??55 ??degrees T [place]: ??66 ??degrees Diagnosis Line: ??SINUS TACHYCARDIA WITH 1ST DEGREE A-V BLOCK ^ ABNORMAL ECG ^ ??^ Confirmed by Connie Reina MD ([id number]) on 04/17/2024 9:58:44 AM us Ky Hills MD ECG ORDERABLES Final Resu lt Performing Organization Address [facility] Co de Phone Number [facility] * (ABNORMAL) Phosphorus (04/17/2024 5:24 AM EDT) Phosphorus 5.0(H) 2.1 - 4.7 mg/dL 04/17/2024 7:01 AM EDT [facility] Plasma 04/17/2024 5:24 AM EDT 04/17/2024 6:06 AM EDT us Ky Hills MD LAB BLOOD ORDERABLES Final Result [facility] [address] * Magnesium (04/17/2024 5:24 AM EDT) Magnesium 1.7 1.5 - 2.5 mg/dL 04/17/2024 7:01 AM EDT [facility] Plasma 04/17/2024 5:24 AM EDT 04/17/2024 6:06 AM EDT us Ky Hills MD LAB BLOOD ORDERABLES Final Result Performing Organization Address [facility] Co de Phone Number [facility] [address] [facility] * (ABNORMAL) Hepatic Function Panel (04/17/2024 5:24 AM EDT) Total Bilirubin 0.4 0.0 - 1.5 mg/dL 04/17/2024 7:01 AM EDT [facility] Bilirubin, Direct 0.12 0.00 - 0.40 mg/dL 04/17/2024 7:01 AM EDT [facility] AST 9(L) 13 - 39 U/L 04/17/2024 7:01 AM EDT [facility] ALT 8 7 - 52 U/L 04/17/2024 7:01 AM EDT [facility] Alkaline Phosphatase 169(H) 36 - 125 U/L 04/17/2024 7:01 AM EDT [facility] Total Protein 6.6 6.4 - 8.9 g/dL 04/17/2024 7:01 AM EDT [facility] Albumin 3.7 3.5 - 5.7 g/dL 04/17/2024 7:01 AM EDT [facility] Bilirubin, Indirect 0.28 0.00 - 1.10 mg/dL 04/17/2024 7:01 AM EDT [facility] Plasma 04/17/2024 5:24 AM EDT 04/17/2024 6:06 AM EDT us Ky Hills MD LAB BLOOD ORDERABLES Final Result [facility] [address] [place] [address], [facility] * (ABNORMAL) CBC (04/17/2024 5:24 AM EDT) WBC 3.6(L) 3.8 - 10.8 10E3/uL 04/17/2024 6:16 AM EDT [facility] RBC 2.71(L) 4.20 - 5.80 10E6/uL 04/17/2024 6:16 AM EDT [facility] Hemoglobin 9.7(L) 13.2 - 17.1 g/dL 04/17/2024 6:16 AM EDT [facility] Hematocrit 28.6(L) 38.5 - 50.0 % 04/17/2024 6:16 AM EDT [facility] MCV 105.6(H) 80.0 - 100.0 fL 04/17/2024 6:16 AM EDT [facility] MCH 35.9(H) 27.0 - 33.0 pg 04/17/2024 6:16 AM EDT [facility] MCHC 34.0 32.0 - 36.0 g/dL 04/17/2024 6:16 AM EDT [facility] RDW 16.5(H) 11.0 - 15.0 % 04/17/2024 6:16 AM EDT [facility] Platelets 225 140 - 400 10E3/uL 04/17/2024 6:16 AM EDT [facility] MPV 7.7 7.5 - 11.5 fL 04/17/2024 6:16 AM EDT [facility] Whole Blood 04/17/2024 5:24 AM EDT 04/17/2024 6:06 AM EDT us Ky Hills MD LAB BLOOD ORDERABLES Final Result [facility] [address] [place] [address], [facility] * (ABNORMAL) Basic metabolic panel (04/17/2024 5:24 AM EDT) Sodium 142 133 - 146 mmol/L 04/17/2024 7:01 AM EDT [facility] Potassium 6.2(HH) 3.5 - 5.3 mmol/L 04/17/2024 7:01 AM EDT [facility] Comment:Critical Result K:6. 2 Called to and read back by: RYLAND CALVERT RN at: 04/17/2024 07:00:38 by:NEGRITA Chloride 108 98 - 110 mmol/L 04/17/2024 7:01 AM EDT [facility] CO2 20(L) 21 - 33 mmol/L 04/17/2024 7:01 AM EDT [facility] Anion Gap 14 3 - 16 mmol/L 04/17/2024 7:01 AM EDT [facility] BUN 94(H) 7 - 25 mg/dL 04/17/2024 7:01 AM EDT [facility] Creatinine 11.96(H) 0.60 - 1.30 mg/dL 04/17/2024 7:01 AM EDT [facility] Glucose 145(H) 70 - 100 mg/dL 04/17/2024 7:01 AM EDT [facility] Calcium 8.5(L) 8.6 - 10.3 mg/dL 04/17/2024 7:01 AM EDT [facility] Osmolality, Calculated 326(H) 278 - 305 mOsm/kg 04/17/2024 7:01 AM EDT [facility] EGFR 5 04/17/2024 7:01 AM EDT [facility] Comment:As of 2021, the estimated [...] Simone Barrios, Delbert M, Greg [place], Felice ASHLEY, Kulwinder [place], Dorcas [place], et al. A Unifying Approach for GFR Estimation: Recommendations of the NKF-ASN Task Force on Reassessing the inclusion of Race in Diagnosing Kidney Disease. Am J Kidney Dis. 2020. Plasma 04/17/2024 5:24 AM EDT 04/17/2024 6:06 AM EDT us Ky Hills MD LAB BLOOD ORDERABLES Final Result [facility] [address] [place] [address], [facility] documented in this encounter Visit Diagnoses Diagnosis ESRD (end stage renal disease) ([facility])- Primary End stage renal disease documented in this encounter Administered Medications Inactive Administered Medications - up to 3 most recent administrations Medication Order MAR Action Action Date Dose Rate Site acetaminophen (TYLENOL) tablet 650 mg 650 mg, Oral, Every 8 hours PRN, Body Temperature > 101F, Pain Score (NRS) =, NRS 1-10; use prior to opioids if opiods are also ordered, then reassess pain score within 90 minutes, Starting on Mon04/17/24 at 0512, Maximum dose of acetaminophen is 4000 mg (4 grams) from all sources in 24 hours. Given 04/18/2024 3:44 AM EDT 650 mg Given 04/17/2024 8:17 PM EDT 650 mg ALPRAZolam (XANAX) tablet 0.5 mg 0.5 mg, Oral, Daily as needed, Sleep, Anxiety, Starting on Mon04/17/24 at 0719 Given 04/17/2024 8:16 PM EDT 0.5 mg alteplase (CATHFLO) 2 mg injection Starting on Mon04/17/24 at 1021, For 1 dose, Created by [employer] alteplase (CATHFLO) injection 2 mg 2 mg, Intracatheter, Once, On Mon04/17/24 at 1030, For 1 dose, Do not change dose. Given 04/17/2024 10:31 AM EDT 2 mg alteplase (CATHFLO) injection 2 mg 2 mg, Intracatheter, Once, On Mon04/17/24 at 1030, For 1 dose, Do not change dose. Given 04/17/2024 10:30 AM EDT 2 mg aspirin chewable tablet 81 mg 81 mg, Oral, Daily with breakfast, First dose on Mon04/17/24 at 0800 Given 04/18/2024 11:00 AM EDT 81 mg Given 04/17/2024 8:09 AM EDT 81 mg carBAMazepine (TEGRETOL) tablet 200 mg 200 mg, Oral, 2 times daily, First dose on Mon04/17/24 at 0900 Given 04/18/2024 10:57 AM EDT 200 mg Given 04/17/2024 8:25 PM EDT 200 mg Given 04/17/2024 10:00 AM EDT 200 mg carvediloL (COREG) tablet 25 mg 25 mg, Oral, 2 times daily, First dose on Mon04/17/24 at 0900, On hold since Mon04/17/2024 at 0606 until manually unheld cinacalcet (SENSIPAR) tablet 90 mg 90 mg, Oral, Daily with breakfast, First dose on Mon04/17/24 at 0800, SWALLOW WHOLE; DO NOT CRUSH OR CHEW Given 04/18/2024 11:00 AM EDT 90 mg Given 04/17/2024 8:08 AM EDT 90 mg cycloSPORINE modified (NEORAL/GENGRAF) capsule 100 mg 100 mg, Oral, Every morning, First dose on Mon04/17/24 at 0900, LEVEL 2 HAZARDOUS MEDICATIONIndications:Prevention of Liver Transplant Rejection Given 04/18/2024 10:56 AM EDT 100 mg Given 04/17/2024 8:09 AM EDT 100 mg cycloSPORINE modified (NEORAL/GENGRAF) capsule 125 mg 125 mg, Oral, At Bedtime (2100), First dose on Mon04/17/24 at 2100, LEVEL 2 HAZARDOUS MEDICATIONIndications:Prevention of Liver Transplant Rejection Given 04/17/2024 8:17 PM EDT 125 mg dextrose 10%-water (D10W) IV soln 12.5 g, Intravenous, Every 15 min PRN, Low blood sugar, for glucose < 70 and alert but can not be corrected, orally or via feeding tube, Starting on Mon04/17/24 at 0636, Recheck blood sugar in 15 minutes and repeat treatment if glucose still < 70. For Smart Pump: Set volume to be infused; 125 ml for 12.5 grams or 250 mL for 25 grams. dextrose 10%-water (D10W) IV soln 25 g, Intravenous, Every 15 min PRN, Low blood sugar, for glucose < 70 and not alert, Starting on Mon04/17/24 at 0636, Recheck glucose in 15 minutes and repeat treatment if glucose still < 70. For Smart Pump: Set volume to be infused; 125 ml for 12.5 grams or 250 mL for 25 grams. dextrose 10%-water (D10W) IV soln 25 g, Intravenous, Once, On Mon04/17/24 at 0830, For 1 dose, FOR SMART PUMP: Set volume to be infused to 250 mL = 25 grams Administer D10 250 mL IV with Insulin 5 units dose For Smart Pump: Set volume to be infused; 125 ml for 12.5 grams or 250 mL for 25 grams. New Bag 04/17/2024 9:58 AM EDT 25 g 999 mL/hr dextrose 10%-water (D10W) IV soln 25 g, Intravenous, Once, On Mon04/17/24 at 1600, For 1 dose, FOR SMART PUMP: Set volume to be infused to 250 mL = 25 grams Administer D10 250 mL IV with Insulin 5 units dose For Smart Pump: Set volume to be infused; 125 ml for 12.5 grams or 250 mL for 25 grams. New Bag 04/17/2024 4:31 PM EDT 25 g 999 mL/hr doxazosin (CARDURA) tablet 8 mg 8 mg, Oral, Daily, First dose on Mon04/17/24 at 0900, Therapeutic Incterchange: terazosin (HYTRIN) 10 mg daily - doxazosin (CARDURA) 8 mg daily Given 04/18/2024 10:57 AM EDT 8 mg Given 04/17/2024 11:38 AM EDT 8 mg ergocalciferol capsule 50,000 Units 50,000 Units, Oral, Every Monday, Monday, Monday (Once per day on Monday), First dose on Mon04/17/24 at 0900 Given 04/17/2024 8:09 AM EDT 50,000 Units fentaNYL (SUBLIMAZE) injection Intravenous, Intra-op PRN, Starting on Mon04/18/24 at 0929, Intra-procedure(IR) Given 04/18/2024 9:29 AM EDT 25 mcg fentaNYL (SUBLIMAZE) injection Intravenous, Intra-op PRN, Starting on Bobbi 04/18/24 at 0945, Intra-procedure(IR) Given 04/18/2024 9:45 AM EDT 25 mcg folic acid (FOLVITE) tablet 1 mg 1 mg, Oral, Daily, First dose on Mon04/17/24 at 0900 Given 04/18/2024 10:56 AM EDT 1 mg Given 04/17/2024 8:10 AM EDT 1 mg For Catheter Lock: gentamicin 0.32 mg/mL and citrate 4% antibiotic IV lock 5 mL, Intracatheter, Use as directed PRN, for catheter flush, Starting on Mon04/17/24 at 1032, Instill 2-5 mL based on patient catheter size to prevent occlusion. GENTAMICIN 0.32 mg/mL IN CITRATE 4%; PROTECT FROM LIGHT Given 04/18/2024 1:18 PM EDT 5 mLs Given 04/17/2024 2:39 PM EDT 5 mLs Given 04/17/2024 12:10 PM EDT 5 mLs gabapentin (NEURONTIN) capsule 300 mg 300 mg, Oral, Daily, First dose on Mon04/17/24 at 0900 Given 04/18/2024 10:56 AM EDT 300 mg Given 04/17/2024 8:09 AM EDT 300 mg glucose chewable tablet 12 g 12 g, Oral, Every 15 min PRN, Low blood sugar, see admin instructions, Starting on Mon04/17/24 at 0636, TAKING PO: Patient has blood glucose between [...] needed. 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 Each tablet = 4 grams of glucose. Do not give chewable tablets via feeding tube heparin (porcine) injection 5,000 Units 5,000 Units, Subcutaneous, Every 8 hours scheduled (3 times per day), First dose on Mon04/17/24 at 0500, On hold since Mon04/17/2024 at 2359 until manually unheld Given 04/17/2024 8:18 PM EDT 5,000 Units Right Arm hydrALAZINE (APRESOLINE) tablet 25 mg 25 mg, Oral, Once, On Mon04/18/24 at 0430, For 1 dose Given 04/18/2024 4:24 AM EDT 25 mg HYDROmorphone (DILAUDID) injection 0.3 mg 0.3 mg, Intravenous, Once, On Mon04/17/24 at 1800, For 1 dose Given 04/17/2024 8:25 PM EDT 0.3 mg insulin glargine (LANTUS) injection 10 Units 10 Units, Subcutaneous, At Bedtime (2100), First dose on Mon04/17/24 at 2100, Do not hold medication unless instructed by provider. HIGH ALERT MEDICATION Given 04/17/2024 11:06 PM EDT 10 Units Abdominal Tissue insulin lispro (humaLOG/ADMELOG) injection 0-5 Units 0-5 Units, Subcutaneous, 3 times daily before meals, First dose on Mon04/17/24 at 0900, HIGH ALERT MEDICATION Given 04/17/2024 1:48 PM EDT 1 Units Left Arm insulin regular (HumuLIN R) injection 5 Units 5 Units, Intravenous, Once, On Mon04/17/24 at 0830, For 1 dose, Administer with D10W 25 gram (250 mL) dose Given 04/17/2024 9:59 AM EDT 5 Units insulin regular (HumuLIN R) injection 5 Units 5 Units, Intravenous, Once, On Mon04/17/24 at 1600, For 1 dose, Administer with D10W 25 gram (250 mL) dose Given 04/17/2024 4:27 PM EDT 5 Units lidocaine 10 mg/mL (1 %) injection Intra-op PRN, Starting on Mon04/18/24 at 0926, Intra-procedure(IR) Given 04/18/2024 9:26 AM EDT 10 mLs Other magnesium hydroxide (MILK OF MAGNESIA) 2,400 mg/10 mL oral suspension 10 mL 10 mL, Oral, Daily as needed, Constipation, Starting on Mon04/17/24 at 0512 montelukast (SINGULAIR) tablet 10 mg 10 mg, Oral, Daily, First dose on Mon04/17/24 at 0900 Given 04/18/2024 10:56 AM EDT 10 mg Given 04/17/2024 8:11 AM EDT 10 mg mycophenolate (CELLCEPT) capsule 250 mg 250 mg, Oral, 2 times daily, First dose on Mon04/17/24 at 0900, LEVEL 2 HAZARDOUS MEDICATION Given 04/18/2024 10:56 AM EDT 250 mg Given 04/17/2024 8:16 PM EDT 250 mg Given 04/17/2024 8:10 AM EDT 250 mg NIFEdipine (PROCARDIA-XL) 24 hr tablet 90 mg 90 mg, Oral, Daily, First dose on Mon04/17/24 at 0900, DO NOT CRUSH Given 04/18/2024 10:56 AM EDT 90 mg Given 04/17/2024 8:10 AM EDT 90 mg OMNIPAQUE 300 mg/mL (iohexol) 50 mL 50 mL, Intravenous, IMG once as needed, contrast, Starting on Mon04/18/24 at 1052, For 1 dose Given 04/18/2024 10:22 AM EDT 30 mLs ondansetron (ZOFRAN) injection 4 mg 4 mg, Intravenous, Every 8 hours PRN, Nausea and/or Vomiting, Starting on Mon04/17/24 at 0512, If patient not able to tolerate PO, administer IV. Given 04/18/2024 1:20 PM EDT 4 mg Given 04/17/2024 11:50 AM EDT 4 mg oxyCODONE (ROXICODONE) immediate release tablet 5 mg 5 mg, Oral, Once, On Bobbi 04/18/24 at 1130, For 1 dose Given 04/18/2024 11:52 AM EDT 5 mg pantoprazole (PROTONIX) EC tablet 40 mg 40 mg, Oral, 2 times daily, First dose on Mon04/17/24 at 0900, Do Not Crush Given 04/18/2024 10:56 AM EDT 40 mg Given 04/17/2024 8:17 PM EDT 40 mg Given 04/17/2024 8:09 AM EDT 40 mg polyethylene glycol (MIRALAX) packet 17 g 17 g, Oral, Daily, First dose on Mon04/17/24 at 1700 Given 04/17/2024 4:11 PM EDT 17 g senna-docusate (SENNA-S) 8.6-50 mg per tablet 1 tablet 1 tablet, Oral, 2 times daily, First dose on Mon04/17/24 at 1700 Given 04/18/2024 10:56 AM EDT 1 tablet Given 04/17/2024 4:11 PM EDT 1 tablet sodium zirconium cyclosilicate (LOKELMA) oral powder PwPk 10 g 10 g, Oral, 3 times daily (1100, 1500, 2300), First dose (after last modification) on Mon04/17/24 at 0900, For 48 hours, Dosing of Lokelma for Acute Hyperkalemia is 10 grams three times daily for 48 hours, Maintenance Dosing for Alf use is typically 10 gram once daily Given 04/17/2024 4:31 PM EDT 10 g Given 04/17/2024 11:41 AM EDT 10 g sterile water (PF) Soln Starting on Mon04/17/24 at 1022, For 1 dose, Created by cabinet override Given 04/17/2024 10:31 AM EDT 10 mLs documented in this encounter Active and Recently Administered Medications Times are shown in EDT. Scheduled Medication Order 04/16/2024 04/17/2024 04/18/2024 alteplase (CATHFLO) injection 2 mg (COMPLETED) 2 mg, Intracatheter, Once, On Mon04/17/24 at 1030, For 1 dose, Do not change dose. 1031 (Given - Provider: Zoila Schwartz, RN) alteplase (CATHFLO) injection 2 mg (COMPLETED) 2 mg, Intracatheter, Once, On Mon04/17/24 at 1030, For 1 dose, Do not change dose. 1030 (Given - Provider: Zoila Schwartz, RN) aspirin chewable tablet 81 mg 81 mg, Oral, Daily with breakfast, First dose on Mon04/17/24 at 0800 0809 (Given - Provider: Coty Alvarado) 1100 (Given - Provider: Sarah Houston, RN - Comment: Patient is in IR) carBAMazepine (TEGRETOL) tablet 200 mg 200 mg, Oral, 2 times daily, First dose on Mon04/17/24 at 0900 1000 (Given - Provider: Coty Alvarado)2024 (Given - Provider: Christina Box, JANA) 1057 (Given - Provider: Sarah Houston, JANA) carvediloL (COREG) tablet 25 mg 25 mg, Oral, 2 times daily, First dose on Mon04/17/24 at 0900, On hold since Mon04/17/2024 at 0606 until manually unheld 0606 (Held by provider - Provider: Ky Hills MD - Reason: Other - Comment: Upcoming stress test per patient, wants to hold BB)0900 (Not Given - Provider: Paulina Melgar RN - Reason: Other - Comment: Held by provider)2100 (Automatically Held - Provider: Ky Hills MD) 0900 (Automatically Held - Provider: Ky Hills MD)1855 (Unheld by provider - Provider: Automatic Discharge Provider) cinacalcet (SENSIPAR) tablet 90 mg 90 mg, Oral, Daily with breakfast, First dose on Mon04/17/24 at 0800, SWALLOW WHOLE; DO NOT CRUSH OR CHEW 0808 (Given - Provider: Coty Alvarado) 1100 (Given - Provider: Sarah Houston RN - Comment: Patient is in IR) cycloSPORINE modified (NEORAL/GENGRAF) capsule 100 mg(Linked Group 1) 100 mg, Oral, Every morning, First dose on Mon04/17/24 at 0900, LEVEL 2 HAZARDOUS MEDICATION 0809 (Given - Provider: Coty Alvarado) 1056 (Given - Provider: Sarah Houston RN) cycloSPORINE modified (NEORAL/GENGRAF) capsule 125 mg(Linked Group 1) 125 mg, Oral, At Bedtime (2100), First dose on Mon04/17/24 at 2100, LEVEL 2 HAZARDOUS MEDICATION 2017 (Given - Provider: Christina Box RN) dextrose 10%-water (D10W) IV soln (COMPLETED)(Linked Group 2) 25 g, Intravenous, Once, On Mon04/17/24 at 0830, For 1 dose, FOR SMART PUMP: Set volume to be infused to 250 mL = 25 grams Administer D10 250 mL IV with Insulin 5 units dose For Smart Pump: Set volume to be infused; 125 ml for 12.5 grams or 250 mL for 25 grams. 09 (New Bag - Provider: Coty Alvarado) dextrose 10%-water (D10W) IV soln (COMPLETED)(Linked Group 3) 25 g, Intravenous, Once, On Mon04/17/24 at 1600, For 1 dose, FOR SMART PUMP: Set volume to be infused to 250 mL = 25 grams Administer D10 250 mL IV with Insulin 5 units dose For Smart Pump: Set volume to be infused; 125 ml for 12.5 grams or 250 mL for 25 grams. 1631 (New Bag - Provider: Raquel Burger RN) doxazosin (CARDURA) tablet 8 mg 8 mg, Oral, Daily, First dose on Mon04/17/24 at 0900, Therapeutic Incterchange: terazosin (HYTRIN) 10 mg daily - doxazosin (CARDURA) 8 mg daily 1138 (Given - Provider: Coty Alvarado) 1057 (Given - Provider: Sarah Houston RN) ergocalciferol capsule 50,000 Units 50,000 Units, Oral, Every Monday, Monday, Monday (Once per day on Monday), First dose on Mon04/17/24 at 0900 0809 (Given - Provider: Coty Alvarado) folic acid (FOLVITE) tablet 1 mg 1 mg, Oral, Daily, First dose on Mon04/17/24 at 0900 0810 (Given - Provider: Coty Alvarado) 1056 (Given - Provider: Sarah Houston, JANA) gabapentin (NEURONTIN) capsule 300 mg 300 mg, Oral, Daily, First dose on Mon04/17/24 at 0900 0809 (Given - Provider: Coty Alvarado) 1056 (Given - Provider: Sarah Houston, JANA) heparin (porcine) injection 5,000 Units 5,000 Units, Subcutaneous, Every 8 hours scheduled (3 times per day), First dose on Mon04/17/24 at 0500, On hold since Mon04/17/2024 at 2359 until manually unheld 0542 (Not Given - Provider: Fox Jain RN - Reason: Patient/family refused)1150 (Not Given - Provider: Coty Alvarado - Reason: Patient/family refused)2017 (Given - Provider: Christina Box RN)2359 (Held by provider - Provider: Jacinto Pineda MD - Reason: For procedure) 0500 (Automatically Held - Provider: Jacinto Pineda MD)1300 (Automatically Held - Provider: Jacinto Pineda MD)1855 (Unheld by provider - Provider: Automatic Discharge Provider) hydrALAZINE (APRESOLINE) tablet 25 mg (COMPLETED) 25 mg, Oral, Once, On Mon04/18/24 at 0430, For 1 dose 042 (Given - Provider: Christina Box, JANA) HYDROmorphone (DILAUDID) injection 0.3 mg (COMPLETED) 0.3 mg, Intravenous, Once, On Mon04/17/24 at 1800, For 1 dose 2024 (Given - Provider: Christina Box, JANA) insulin glargine (LANTUS) injection 10 Units 10 Units, Subcutaneous, At Bedtime (2100), First dose on Mon04/17/24 at 2100, Do not hold medication unless instructed by provider. HIGH ALERT MEDICATION 2306 (Given - Provider: Christina Box RN) insulin lispro (humaLOG/ADMELOG) injection 0-5 Units 0-5 Units, Subcutaneous, 3 times daily before meals, First dose on Mon04/17/24 at 0900, HIGH ALERT MEDICATION 0902 (Not Given - Provider: Paulina Melgar RN - Reason: Order parameters not met)1348 (Given - Provider: Paulina Melgar RN)2026 (Not Given - Provider: Christina Box RN - Reason: Order parameters not met) 1105 (Not Given - Provider: Sarah Houston RN - Reason: Order parameters not met)1321 (Not Given - Provider: Sarah Houston RN - Reason: Other - Comment: patient not eating) insulin regular (HumuLIN R) injection 5 Units (COMPLETED)(Linked Group 2) 5 Units, Intravenous, Once, On Mon04/17/24 at 0830, For 1 dose, Administer with D10W 25 gram (250 mL) dose 0959 (Given - Provider: Coty Alvarado) insulin regular (HumuLIN R) injection 5 Units (COMPLETED)(Linked Group 3) 5 Units, Intravenous, Once, On Mon04/17/24 at 1600, For 1 dose, Administer with D10W 25 gram (250 mL) dose 1627 (Given - Provider: Raquel Burger RN) montelukast (SINGULAIR) tablet 10 mg 10 mg, Oral, Daily, First dose on Mon04/17/24 at 0900 0811 (Given - Provider: Coty Alvarado) 1056 (Given - Provider: Sarah Houston RN) mycophenolate (CELLCEPT) capsule 250 mg 250 mg, Oral, 2 times daily, First dose on Mon04/17/24 at 0900, LEVEL 2 HAZARDOUS MEDICATION 0810 (Given - Provider: Coty Alvarado)2015 (Given - Provider: Christina Box, JANA) 1056 (Given - Provider: Sarah Houston RN) NIFEdipine (PROCARDIA-XL) 24 hr tablet 90 mg 90 mg, Oral, Daily, First dose on Mon04/17/24 at 0900, DO NOT CRUSH 0810 (Given - Provider: Coty Alvarado) 1056 (Given - Provider: Sarah Houston RN) oxyCODONE (ROXICODONE) immediate release tablet 5 mg (COMPLETED) 5 mg, Oral, Once, On Bobbi 04/18/24 at 1130, For 1 dose 1152 (Given - Provider: Sarah Houston, JANA) pantoprazole (PROTONIX) EC tablet 40 mg 40 mg, Oral, 2 times daily, First dose on Mon04/17/24 at 0900, Do Not Crush 0809 (Given - Provider: Coty Alvarado)2017 (Given - Provider: Christina Box, JANA) 1056 (Given - Provider: Sarah Houston, JANA) polyethylene glycol (MIRALAX) packet 17 g 17 g, Oral, Daily, First dose on Mon04/17/24 at 1700 1611 (Given - Provider: Paulina Melgar, JANA) 1057 (Not Given - Provider: Sarah Houston RN - Reason: Patient/family refused) senna-docusate (SENNA-S) 8.6-50 mg per tablet 1 tablet 1 tablet, Oral, 2 times daily, First dose on Mon04/17/24 at 1700 1611 (Given - Provider: Paulina Melgar RN) 1056 (Given - Provider: Sarah Houston RN) sodium zirconium cyclosilicate (LOKELMA) oral powder PwPk 10 g 10 g, Oral, 3 times daily (1100, 1500, 2300), First dose (after last modification) on Mon04/17/24 at 0900, For 48 hours, Dosing of Lokelma for Acute Hyperkalemia is 10 grams three times daily for 48 hours, Maintenance Dosing for Payroll And Benefits Analyst use is typically 10 gram once daily 1046 (Not Given - Provider: Adilene Reza RN - Reason: Contraindicated - Comment: Only getting 3 doses today 1100, 1500, 2300)1141 (Given - Provider: Coty Alvarado)1631 (Given - Provider: Raquel Burger, JANA)2306 (Not Given - Provider: Christina Box, JANA - Reason: Contraindicated - Comment: patient getting dialysis) 1246 (Not Given - Provider: Sarah Houston RN - Reason: Patient/family refused - Comment: PAtient taking morning meds now) PRN Medication Order 04/16/2024 04/17/2024 04/18/2024 acetaminophen (TYLENOL) tablet 650 mg 650 mg, Oral, Every 8 hours PRN, Body Temperature > 101F, Pain Score (NRS) =, NRS 1-10; use prior to opioids if opiods are also ordered, then reassess pain score within 90 minutes, Starting on Mon04/17/24 at 0512, Maximum dose of acetaminophen is 4000 mg (4 grams) from all sources in 24 hours. 2016 (Given - Provider: Christina Box RN) 343 (Given - Provider: Christina Box RN) ALPRAZolam (XANAX) tablet 0.5 mg 0.5 mg, Oral, Daily as needed, Sleep, Anxiety, Starting on Mon04/17/24 at 0719 2015 (Given - Provider: Christina Box RN) dextrose 10%-water (D10W) IV soln(Linked Group 4) 12.5 g, Intravenous, Every 15 min PRN, Low blood sugar, for glucose < 70 and alert but can not be corrected, orally or via feeding tube, Starting on Mon04/17/24 at 0636, Recheck blood sugar in 15 minutes and repeat treatment if glucose still < 70. For Smart Pump: Set volume to be infused; 125 ml for 12.5 grams or 250 mL for 25 grams. dextrose 10%-water (D10W) IV soln(Linked Group 4) 25 g, Intravenous, Every 15 min PRN, Low blood sugar, for glucose < 70 and not alert, Starting on Mon04/17/24 at 0636, Recheck glucose in 15 minutes and repeat treatment if glucose still < 70. For Smart Pump: Set volume to be infused; 125 ml for 12.5 grams or 250 mL for 25 grams. fentaNYL (SUBLIMAZE) injection (COMPLETED) Intravenous, Intra-op PRN, Starting on Bobbi 04/18/24 at 0929, Intra-procedure(IR) 0929 (Given - Provid er: Latrice Kaufman RN) fentaNYL (SUBLIMAZE) injection (COMPLETED) Intravenous, Intra-op PRN, Starting on Bobbi 04/18/24 at 0945, Intra-procedure(IR) 0945 (Given - Provid er: Latrice Kaufman RN) For Catheter Lock: gentamicin 0.32 mg/mL and citrate 4% antibiotic IV lock 5 mL, Intracatheter, Use as directed PRN, for catheter flush, Starting on Mon04/17/24 at 1032, Instill 2-5 mL based on patient catheter size to prevent occlusion. GENTAMICIN 0.32 mg/mL IN CITRATE 4%; PROTECT FROM LIGHT 1210 (Given - Provider: Shilpa Rico, RN)1439 (Given - Provider: Zoila Schwartz RN) 1318 (Given - Provider: Jaida Cruz RN - Comment: HD catheter use.) glucose chewable tablet 12 g 12 g, Oral, Every 15 min PRN, Low blood sugar, see admin instructions, Starting on Mon04/17/24 at 0636, TAKING PO: Patient has blood glucose between [...] needed. 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 Each tablet = 4 grams of glucose. Do not give chewable tablets via feeding tube lidocaine 10 mg/mL (1 %) injection (COMPLETED) Intra-op PRN, Starting on Mon04/18/24 at 0926, Intra-procedure(IR) 0926 (Given - Provid er: Maame Ribeiro CNP - Comment: Left neck) magnesium hydroxide (MILK OF MAGNESIA) 2,400 mg/10 mL oral suspension 10 mL 10 mL, Oral, Daily as needed, Constipation, Starting on Mon04/17/24 at 0512 OMNIPAQUE 300 mg/mL (iohexol) 50 mL (COMPLETED) 50 mL, Intravenous, IMG once as needed, contrast, Starting on Mon04/18/24 at 1052, For 1 dose 1022 (Given - Provid er: Dennys Gill) ondansetron (ZOFRAN) injection 4 mg 4 mg, Intravenous, Every 8 hours PRN, Nausea and/or Vomiting, Starting on Mon04/17/24 at 0512, If patient not able to tolerate PO, administer IV. 1150 (Given - Provider: Coty Alvarado) 1320 (Given - Provider: Sarah Houston RN) No Frequency Medication Order 04/16/2024 04/17/2024 04/18/2024 fentaNYL (SUBLIMAZE) 50 mcg/mL injection Starting on Mon04/18/24 at 0902, For 1 dose, Created by cabinet override HIGH ALERT MEDICATION 0930 (Due) heparin (porcine) 1,000 unit/mL injection Starting on Mon04/18/24 at 0902, For 1 dose, Created by cabinet override 0930 (Due) lidocaine 10 mg/mL (1 %) injection Starting on Mon04/18/24 at 0902, For 1 dose, Created by cabinet override 0930 (Due) sterile water (PF) Soln (COMPLETED) Starting on Mon04/17/24 at 1022, For 1 dose, Created by cabinet override 1031 (Given - Provider: Cathy Schwartz RN) Linked Groups Order Group 1: cycloSPORINE modified (NEORAL/GENGRAF) capsule 100 mgJump to med 100 mg, Oral, Every morning, First dose on Mon04/17/24 at 0900, LEVEL 2 HAZARDOUS MEDICATION And cycloSPORINE modified (NEORAL/GENGRAF) capsule 125 mgJump to med 125 mg, Oral, At Bedtime (2100), First dose on Mon04/17/24 at 2100, LEVEL 2 HAZARDOUS MEDICATION Group 2: dextrose 10%-water (D10W) IV soln (COMPLETED)Jump to med 25 g, Intravenous, Once, On Mon04/17/24 at 0830, For 1 dose, FOR SMART PUMP: Set volume to be infused to 250 mL = 25 grams Administer D10 250 mL IV with Insulin 5 units dose For Smart Pump: Set volume to be infused; 125 ml for 12.5 grams or 250 mL for 25 grams. And insulin regular (HumuLIN R) injection 5 Units (COMPLETED)Jump to med 5 Units, Intravenous, Once, On Mon04/17/24 at 0830, For 1 dose, Administer with D10W 25 gram (250 mL) dose And Fingerstick Blood Glucose now and every hour x 6 (CANCELED) Routine, Now then every 1 hour, First occurrence on Mon04/17/24 at 0759, For 6 occurrences Group 3: dextrose 10%-water (D10W) IV soln (COMPLETED)Jump to med 25 g, Intravenous, Once, On Mon04/17/24 at 1600, For 1 dose, FOR SMART PUMP: Set volume to be infused to 250 mL = 25 grams Administer D10 250 mL IV with Insulin 5 units dose For Smart Pump: Set volume to be infused; 125 ml for 12.5 grams or 250 mL for 25 grams. And insulin regular (HumuLIN R) injection 5 Units (COMPLETED)Jump to med 5 Units, Intravenous, Once, On Mon04/17/24 at 1600, For 1 dose, Administer with D10W 25 gram (250 mL) dose And Fingerstick Blood Glucose now and every hour x 6 (CANCELED) Routine, Now then every 1 hour, First occurrence on Mon04/17/24 at 1551, For 6 occurrences Group 4: dextrose 10%-water (D10W) IV solnJump to med 12.5 g, Intravenous, Every 15 min PRN, Low blood sugar, for glucose < 70 and alert but can not be corrected, orally or via feeding tube, Starting on Mon04/17/24 at 0636, Recheck blood sugar in 15 minutes and repeat treatment if glucose still < 70. For Smart Pump: Set volume to be infused; 125 ml for 12.5 grams or 250 mL for 25 grams. Or dextrose 10%-water (D10W) IV solnJump to med 25 g, Intravenous, Every 15 min PRN, Low blood sugar, for glucose < 70 and not alert, Starting on Mon04/17/24 at 0636, Recheck glucose in 15 minutes and repeat treatment if glucose still < 70. For Smart Pump: Set volume to be infused; 125 ml for 12.5 grams or 250 mL for 25 grams. documented in this encounter Additional Health Concerns Assessment Noted Time PHQ-9 Depression Total Score: 0 12/06/19 18 3:00 PM EDT documented as of this encounter Care Teams Coating Engineer Relationship Specialty Start Date End Date Edgar Fournier MD [address] [place] [address] [place] [address] PCP - General 12/22/21 Maile Valles, RN Txp Post Coordinator Transplant Hepatology 11/07/17 Jack Ordoñez MD [address] [place] [phone] Consulting Physician Transplant Hepatology 01/05/18 Estephania Sharif, DarrianD Pharmacist Pharmacist 11/11/19 documented as of this encounter
--- OUTSIDE RECORDS SUMMARY | 2024-07-12 12:23 | XMS_ITS | Encounter Summary ---
Author Organization [facility] Address [address] [place] [address] Care Team Providers Care Freelance Copywriter Name Role Phone Maile Valles RN Unavailable Unavail able Jack Ordoñez MD Unavailable [phone] Estephania Sharif PharmD Unavailable Christine Edgar Tolentino MD Primary Care Provider [phone] Source Comments This information has been disclosed [...] release of HIV test results or diagnoses. [id number] Reason for Visit * Reason Comments Medication Refill Encounter Details Date Type Department Care Team (Late st Contact Info) Description 02/19/2024 Refill [facility] Internal Medicine at [place] [id number] [facility] [address] [place] [address] Jack Ordoñez MD [address] [facility] [place] [address] Social History Tobacco Use Types Packs/Day Years [...] place to sleep or slept in a alf (including now)? No 11/05/2023 Sex and Gender Information Value Date Recorded Sex Assigned at Not on file Legal Sex Male 11:05 AM EDT Gender Identity Not on file Sexual Orientation Not on file documented as of this encounter Plan of Treatment Upcoming Encounters Date Type Department Care Team (Late st Contact Info) Description 07/15/2024 9:00 AM EST Hospital Encounter [facility] Interventional Radiology [address] [place] [phone] Herve Carrillo MD [address] [facility] [address] [place] [phone] documented as of this encounter Visit Diagnoses Not on filedocumented in this encounter Additional Health Concerns Assessment Noted Time PHQ-9 Depression Total Score: 0 12/06/19 18 3:00 PM EDT documented as of this encounter Care Teams Freelance Copywriter Relationship Specialty Start Date End Date Edgar Fournier MD [address] [place] [address] [place] [address] PCP - General 12/22/21 Maile Valles, RN Txp Post Coordinator Transplant Hepatology 11/07/17 Jack Ordoñez MD [address] [place] [phone] Consulting Physician Transplant Hepatology 01/05/18 Estephania Sharif, DarrianD Pharmacist Pharmacist 11/11/19 documented as of this encounter
--- OUTSIDE RECORDS SUMMARY | 2024-07-12 12:23 | XMS_ITS | Encounter Summary ---
Author Organization [facility] Address [facility] [place] [address] Care Team Providers Care It Service Manager Name Role Phone Maile Valles RN Unavailable Unavail able Jack Ordoñez MD Unavailable [phone] Estephania Sharif PharmD Unavailable Christine Edgar Tolentino MD Primary Care Provider [phone] Source Comments This information has been disclosed [...] release of HIV test results or diagnoses. [id number] Reason for Visit * Reason Comments After Hours Call Encounter Details Date Type Department Care Team (Late st Contact Info) Description 04/27/2024 Telephone [facility] [address] [place] [address] Unknown, Attending Provider After Hours Call Social History Tobacco Use Types Packs/Day Years Used Date Smoking Tobacco: Never Smokeless Tobacco: Never Alcohol Use Standard Drinks/Week Comments Never 0 (1 standard drink = 0.6 oz pur e alcohol) Utilities Answer Date Recorded In the past 12 months has th e [employer], gas, oil, or water company threatened to [...] place to sleep or slept in a care home (including now)? No 11/05/2023 Housing Stability [...] any time in the past 12 m [facility], were you homeless or living in a care home (including now)? No 04/28/2024 Sex and Gender Information Value Date Recorded Sex Assigned at Not on file Legal Sex Male 11:05 AM EDT Gender Identity Not on file Sexual Orientation Not on file documented as of this encounter Miscellaneous Notes * Telephone Encounter - Marie Martinez RN - 04/27/2024 5:27 PM EDT Patient called to report unable to do home hemodialysis due to catheter clotted off. Patient also reports shortness of breath. Advised patient to be evaluated in ER. * Telephone Encounter - Radha Aguilar - 04/27/2024 5:15 PM EDT Specialty: LIVER PROCESS CONTROL TECH Patient Name: Aiden Stauffer Jr. Patient Date of : 1975 Relationship of Caller to Patient and Callback: SELF [phone] Patient of: DR. HOPPER Nature of Call: PT CATHETER IS CLOGGED. HAS 5.5NLITERS ON HIM HAVING SHORTNESS OF BREATH. 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 ROUTE TELEPHONE NOTE - Follow Qgenda and/or Route Directly to Provider. COPY this note into [facility] Teams chat. documented in this encounter Plan of Treatment Upcoming Encounters Date Type Department Care Team (Late st Contact Info) Description 07/15/2024 9:00 AM EST Hospital Encounter [facility] Interventional Radiology [address] [place] [phone] Herve [facility]illo [facility] [address] [facility] [address] [place] [address] documented as of this encounter Visit Diagnoses Not on filedocumented in this encounter Additional Health Concerns Assessment Noted Time PHQ-9 Depression Total Score: 0 12/06/19 18 3:00 PM EDT documented as of this encounter Care Teams It Service Manager Relationship Specialty Start Date End Date Edgar Fournier MD [address] [place], [place] [phone] PCP - General 12/22/21 Maile Valles, RN Txp Post Coordinator Transplant Hepatology 11/07/17 Jack Ordoñez MD [address] [place] [address] Consulting Physician Transplant Hepatology 01/05/18 Estephania Sharif, DarrianD Pharmacist Pharmacist 11/11/19 documented as of this encounter
--- OUTSIDE RECORDS SUMMARY | 2024-07-12 12:23 | XMS_ITS | Encounter Summary ---
Author Organization [facility] Address [address] [place] [id number] Care Team Providers Care Copywriting Intern Name Role Phone Maile Valles RN Unavailable Unavail able Jack Ordoñez MD Unavailable [phone] Estephania Sharif PharmD Unavailable Christine Edgar Tolentino MD Primary Care Provider [phone] Source Comments This information has been disclosed [...] release of HIV test results or diagnoses. [id number] Encounter Details Date Type Department Care Team (Latest Contact Info) Description 04/27/2024 Travel Social History Tobacco Use Types Packs/Day Years Used Date Smoking Tobacco: Never Smokeless Tobacco: Never Alcohol Use Standard Drinks/Week Comments Never 0 (1 standard drink = 0.6 oz pur e alcohol) Utilities Answer Date Recorded In the past 12 months has [employer] e electric, gas, oil, or water company [...] living in a mcc (including now)? No 04/28/2024 Sex and Gender Information Value Date Recorded Sex Assigned at Not on file Legal Sex Male 11:05 AM EDT Gender Identity Not on file Sexual Orientation Not on file documented as of this encounter Plan of Treatment Upcoming Encounters Date Type Department Care Team (Late st Contact Info) Description 07/15/2024 9:00 AM EST Hospital Encounter [facility] Interventional Radiology [address] [place] [phone] Herve Carrillo MD [address] [facility] [address] [place] [phone] documented as of this encounter Visit Diagnoses Not on filedocumented in this encounter Additional Health Concerns Assessment Noted Time PHQ-9 Depression Total Score: 0 12/06/19 18 3:00 PM EDT documented as of this encounter Care Teams Copywriting Intern Relationship Specialty Start Date End Date Edgar Fournier MD [address] [place] [address] [place] [address] PCP - General 12/22/21 Maile Valles, RN Txp Post Coordinator Transplant Hepatology 11/07/17 Jack Ordoñez MD [address] [place] [phone] Consulting Physician Transplant Hepatology 01/05/18 Estephania Sharif, PharmD Pharmacist Pharmacist 11/11/19 documented as of this encounter
--- OUTSIDE RECORDS SUMMARY | 2024-07-12 12:23 | XMS_ITS | Encounter Summary ---
Author Organization [facility] Address [address] [place] [address] Care Team Providers Care State Highway Police Officer Name Role Phone Maile Valles RN Unavailable Unavail able Jack Ordoñez MD Unavailable [phone] Estephania Sharif PharmD Unavailable Christine Edgar Tolentino MD Primary Care Provider [phone] Source Comments This information has been disclosed [...] release of HIV test results or diagnoses. [id number] Health Encounter Details Date Type Department Care Team (Late st Contact Info) Description 04/19/2024 Telephone [facility] Cardiac Stress Lab at [facility] [address] [facility] [address] [place] [address] Earnest Ibarra, JANA Social History Tobacco Use Types Packs/Day Years Used Date Smoking Tobacco: Never Smokeless Tobacco: Never Alcohol Use Standard Drinks/Week Comments Never 0 (1 standard drink = 0.6 oz pur e alcohol) Utilities Answer Date Recorded In the past 12 months has th e electric, gas, oil, or water [employer] threatened to shut off services in your [...] time in the past [address] [facility], were you homeless or living in a snf (including now)? No 04/17/2024 Sex and Gender Information Value Date Recorded Sex Assigned at Not on file Legal Sex Male 11:05 AM EDT Gender Identity Not on file Sexual Orientation Not on file documented as of this encounter Miscellaneous Notes * Telephone Encounter - Earnest Ibarra RN - 04/19/2024 7:57 AM EDT Called patient mobile and home phone numbers trying to cancel patient scheduled SAVAGE for today. We wanted to prevent patient making unnecessary trip. Patient was recently inpatient at [facility] and had urgent femoral access for dialysis due to clogged dialysis catheter. Discharge from [facility] was not until yesterday afternoon. Not appropriate at this timeto do SAVAGE. Our department has reached out to ordering doctor to try and get order changed to DSE but have not heard back from him. Our department will continue to try and confer with doctor about appropriate orders and will work with patient to get him rescheduled NIELS. documented in this encounter Plan of Treatment Upcoming Encounters Date Type Department Care Team (Late st Contact Info) Description 07/15/2024 9:00 AM EST Hospital Encounter [facility] Interventional Radiology [address] [place] [phone] Herve Carrillo MD [address] [facility] [address] [place] [phone] documented as of this encounter Visit Diagnoses Not on filedocumented in this encounter Additional Health Concerns Assessment Noted Time PHQ-9 Depression Total Score: 0 12/06/19 18 3:00 PM EDT documented as of this encounter Care Teams State Highway Police Officer Relationship Specialty Start Date End Date Edgar Fournier MD [address] [place] [address] [place] [address] PCP - General 12/22/21 Maile Valles, RN Txp Post Coordinator Transplant Hepatology 11/07/17 Jack Ordoñez MD [address] [place] [address] [phone] Consulting Physician Transplant Hepatology 01/05/18 Estephania Sharif, PharmD Pharmacist Pharmacist 11/11/19 documented as of this encounter
--- OUTSIDE RECORDS SUMMARY | 2024-07-12 12:23 | XMS_ITS | Encounter Summary ---
Author Organization [facility] Address [address] [place] [address] Care Team Providers Care Disbursing Agent Name Role Phone Maile Valles RN Unavailable Unavail able Jack Ordoñez MD Unavailable [phone] Estephania Sharif PharmD Unavailable Christine Edgar Tolentino MD Primary Care Provider [phone] Source Comments This information has been disclosed [...] release of HIV test results or diagnoses. [id number] Health Encounter Details Date Type Department Care Team (Late st Contact Info) Description 03/01/2024 Telephone [facility] Liver Transplant at [place] [id number] [facility] [address] [place] [address] Nae Shannon MA Social History Tobacco Use Types Packs/Day [...] in a correction (including now)? No 11/05/2023 Sex and Gender Information Value Date Recorded Sex Assigned at Not on file Legal Sex Male 11:05 AM EDT Gender Identity Not on file Sexual Orientation Not on file documented as of this encounter Progress Notes * Nae Shannon MA - 03/01/2024 11:53 AM EDT Pt called to say that he is at the lab and that they don;t have his orders I did confirm that they were faxed last week and sorry that they don;t have them and that I was faxing those orders again now. I ask pt what time he takes his meds since it is noon and he reports that he takes his medication around 11am every morning. documented in this encounter Plan of Treatment Upcoming Encounters Date Type Department Care Team (Late st Contact Info) Description 07/15/2024 9:00 AM EST Hospital Encounter [facility] Interventional Radiology [address] [place] [phone] Herve Carrillo MD [address] [facility] [address] [facility] [place] [address] documented as of this encounter Visit Diagnoses Not on filedocumented in this encounter Additional Health Concerns Assessment Noted Time PHQ-9 Depression Total Score: 0 12/06/19 18 3:00 PM EDT documented as of this encounter Care Teams Disbursing Agent Relationship Specialty Start Date End Date Edgar Fournier MD [address] [place] [address] [place] [address] PCP - General 12/22/21 Maile Valles, RN Txp Post Coordinator Transplant Hepatology 11/07/17 Jack Ordoñez MD [address] [place] [phone] Consulting Physician Transplant Hepatology 01/05/18 Estephania Sharif, DarrianD Pharmacist Pharmacist 11/11/19 documented as of this encounter
--- OUTSIDE RECORDS SUMMARY | 2024-07-12 12:23 | XMS_ITS | Encounter Summary ---
Author Organization [facility] Address [address] [place] [address] Care Team Providers Care Manager Center Name Role Phone Maile Valles RN Unavailable Unavail able Jack Ordoñez MD Unavailable Estephania Sharif PharmD Unavailable Christine Edgar Tolentino MD Primary Care Provider [phone] Source Comments This information has been disclosed [...] release of HIV test results or diagnoses. [id number] Health Encounter Details Date Type Department Care Team (Latest Contact Info) Description 02/19/2024 Travel Social History Tobacco Use Types Packs/Day Years Used Date Smoking Tobacco: Never Smokeless Tobacco: Never Alcohol Use Standard Drinks/Week Comments Never 0 (1 standard drink = 0.6 oz pur e alcohol) Utilities Answer Date Recorded In the past 12 months has [employer] electric, gas, oil, or water company [...] a long term (including now)? No 11/05/2023 Sex and Gender Information Value Date Recorded Sex Assigned at Not on file Legal Sex Male 11:05 AM EDT Gender Identity Not on file Sexual Orientation Not on file documented as of this encounter Plan of Treatment Upcoming Encounters Date Type Department Care Team (Late st Contact Info) Description 07/15/2024 9:00 AM EST Hospital Encounter [facility] Interventional Radiology [address] [place] [address] Herve Carrillo MD [address] [facility] [place] [phone] documented as of this encounter Visit Diagnoses Not on filedocumented in this encounter Additional Health Concerns Assessment Noted Time PHQ-9 Depression Total Score: 0 12/06/19 18 3:00 PM EDT documented as of this encounter Care Teams Manager Center Relationship Specialty Start Date End Date Edgar Fournier MD [address] [place] [address] [place] [address] PCP - General 12/22/21 Maile Valles, JANA Txp Post Coordinator Transplant Hepatology 11/07/17 Jack Ordoñez MD [address] [place] [phone] Consulting Physician Transplant Hepatology 01/05/18 Estephania Sharif, DarrianD Pharmacist Pharmacist 11/11/19 documented as of this encounter
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
--- OUTSIDE RECORDS SUMMARY | 2024-07-12 12:23 | XMS_ITS | Encounter Summary ---
Author Organization [facility] Address [address] [place] [address] Care Team Providers Care Fisheries Technical Officer Name Role Phone Maile Valles RN Unavailable Unavail able Jack Ordoñez MD Unavailable Estephania Sharif PharmD Unavailable Christine Edgar Tolentino MD Primary Care Provider [phone] Source Comments This information has been disclosed [...] release of HIV test results or diagnoses. [id number] Health Encounter Details Date Type Department Care Team (Latest Contact Info) Description 02/21/2024 Travel Social History Tobacco Use Types Packs/Day Years Used Date Smoking Tobacco: Never Smokeless Tobacco: Never Alcohol Use Standard Drinks/Week Comments Never 0 (1 standard drink = 0.6 oz pur e alcohol) Utilities Answer Date Recorded In the past 12 months has [employer] electric, gas, oil, or water company [...] place to sleep or slept in a group home (including now)? No 11/05/2023 Sex and Gender [...] Health [facility] Interventional Radiology [address] [place] [address] Herve Carrillo MD [address] [place] [phone] documented as of this encounter Visit Diagnoses Not on filedocumented in this encounter Additional Health Concerns Assessment Noted Time PHQ-9 Depression Total Score: 0 12/06/19 18 3:00 PM EDT documented as of this encounter Care Teams Fisheries Technical Officer Relationship Specialty Start Date End Date Edgar Fournier MD [address] [place] [address] [place] [address] PCP - General 12/22/21 Maile Valles, JANA Txp Post Coordinator Transplant Hepatology 11/07/17 Jack Ordoñez MD [address] [place] [phone] Consulting Physician Transplant Hepatology 01/05/18 Estephania Sharif, DarrianD Pharmacist Pharmacist 11/11/19 documented as of this encounter
--- OUTSIDE RECORDS SUMMARY | 2024-07-12 12:23 | XMS_ITS | Encounter Summary ---
Author Organization [facility] Address [address] [place] [address] Care Team Providers Care Demolition Crane Operator Name Role Phone Maile Valles RN Unavailable Unavail able Jack Ordoñez MD Unavailable Estephania Sharif PharmD Unavailable Christine Edgar Tolentino MD Primary Care Provider [phone] Source Comments This information has been disclosed [...] release of HIV test results or diagnoses. [id number] Health Encounter Details Date Type Department Care Team (Latest Contact Info) Description 04/09/2024 Travel Social History Tobacco Use Types Packs/Day Years Used Date Smoking Tobacco: Never Smokeless Tobacco: Never Alcohol Use Standard Drinks/Week Comments Never 0 (1 standard drink = 0.6 oz pur e alcohol) Utilities Answer Date Recorded In the past 12 months has [employer] electric, gas, oil, or water company [...] place to sleep or slept in a usp (including now)? No 11/05/2023 Sex and Gender Information Value Date Recorded Sex Assigned at Not on file Legal Sex Male 11:05 AM EDT Gender Identity Not on file Sexual Orientation Not on file documented as of this encounter Plan of Treatment Upcoming Encounters Date Type Department Care Team (Late st Contact Info) Description 07/15/2024 9:00 AM EST Hospital Encounter [facility] Interventional Radiology [address] [place] [address] Herve Carrillo MD [address] Surgery [place] [phone] documented as of this encounter Visit Diagnoses Not on filedocumented in this encounter Additional Health Concerns Assessment Noted Time PHQ-9 Depression Total Score: 0 12/06/19 18 3:00 PM EDT documented as of this encounter Care Teams Demolition Crane Operator Relationship Specialty Start Date End Date Edgar Fournier MD [address] [place] [address] [place] [address] PCP - General 12/22/21 Maile Valles, JANA Txp Post Coordinator Transplant Hepatology 11/07/17 Jack Ordoñez MD [address] [place] [phone] Consulting Physician Transplant Hepatology 01/05/18 Estephania Sharif, DarrianD Pharmacist Pharmacist 11/11/19 documented as of this encounter
--- OUTSIDE RECORDS SUMMARY | 2024-07-12 12:23 | XMS_ITS | Encounter Summary ---
Author Organization [facility] Address [facility] [place] [address] Care Team Providers Care Master Data Analyst Name Role Phone Maile Valles RN Unavailable Unavail able Jack Ordoñez MD Unavailable [phone] Estephania Sharif PharmD Unavailable Christine Edgar Tolentino MD Primary Care Provider [phone] Source Comments This information has been disclosed [...] release of HIV test results or diagnoses. [id number] Reason for Visit * Reason Comments After Hours Call Encounter Details Date Type Department Care Team (Late st Contact Info) Description 04/16/2024 Telephone [facility] PATIENT SERVICES [address] [place] [address] Unknown, Attending Provider After Hours Call Social History Tobacco Use Types Packs/Day Years Used Date Smoking Tobacco: Never Smokeless Tobacco: Never Alcohol Use Standard Drinks/Week Comments Never 0 (1 standard drink = 0.6 oz pur e alcohol) Utilities Answer Date Recorded In the past 12 months has th e [employer], gas, oil, or water company threatened to [...] in a usp (including now)? No 11/05/2023 Housing Stability Vital Sign Answer Gilbert e Recorded In the last 12 months, was t here a time when you were not able to pay the mortgage or rent on time? No 04/17/2024 In the past 12 months, how m any times have you moved where you were living? 0 04/17/2024 At any time in the past 12 m [facility], were you homeless or living in a usp (including now)? No 04/17/2024 Sex and Gender Information Value Date Recorded Sex Assigned at Not on file Legal Sex Male 11:05 AM EDT Gender Identity Not on file Sexual Orientation Not on file documented as of this encounter Miscellaneous Notes * Telephone Encounter - Poornima Rodriguez - 04/16/2024 8:43 PM EDT Specialty: KIDNEY TRANSPLANT Patient Name: Aiden Stauffer Jr. Patient Date of : 1975 Relationship of Caller to Patient and Callback: SELF - [phone] Patient of: KIDNEY TRANSPLANT Nature of Call: PT'S WAS TRYING TO DO HIS DIALYSIS THIS EVENING BUT IT IS NOT WORKING. HE STATED THAT HIS ACCESS TUBE HAS CLOGGED UP. HE NEEDS ADVICE ON WHAT TO DO Framing Mill Operator Provider Contacted: DR. WALLACE Time and Method of Contact: DIRECT CONNECT Advise Caller: If provider does not call back within 30 minutes, please call us back. ROUTE TELEPHONE NOTE - Follow Qgenda and/or Route Directly to Provider. COPY this note into [employer] Teams chat. documented in this encounter Plan of Treatment Upcoming Encounters Date Type Department Care Team (Late st Contact Info) Description 07/15/2024 9:00 AM EST Hospital Encounter [facility] Interventional Radiology [address] [place] [phone] Herve Carrillo MD [address] [facility] [address] [place] [phone] documented as of this encounter Visit Diagnoses Not on filedocumented in this encounter Additional Health Concerns Assessment Noted Time PHQ-9 Depression Total Score: 0 12/06/19 18 3:00 PM EDT documented as of this encounter Care Teams Master Data Analyst Relationship Specialty Start Date End Date Edgar Fournier MD [address] [place] [address] J[place] Downs [phone] PCP - General 12/22/21 Maile Valles, RN Txp Post Coordinator Transplant Hepatology 11/07/17 Jack Ordoñez MD [address] [place] [phone] Consulting Physician Transplant Hepatology 01/05/18 Estephania Sharif, DarrianD Pharmacist Pharmacist 11/11/19 documented as of this encounter
--- OUTSIDE RECORDS SUMMARY | 2024-07-12 12:23 | XMS_ITS | Encounter Summary ---
Author Organization [facility] Address [address] [place] [address] Care Team Providers Care Egg Grader Name Role Phone Maile Valles RN Unavailable Unavail able Jack Ordoñez MD Unavailable [phone] Estephania Sharif PharmD Unavailable Christine Edgar Tolentino MD Primary Care Provider [phone] Source Comments This information has been disclosed [...] release of HIV test results or diagnoses. [id number] Health Encounter Details Date Type Department Care Team (Late st Contact Info) Description 04/27/2024 Telephone [facility] PATIENT SERVICES [address] [place] [address] Unknown, Attending Provider Social History Tobacco Use Types Packs/Day Years Used Date Smoking Tobacco: Never Smokeless Tobacco: Never Alcohol Use Standard Drinks/Week Comments Never 0 (1 standard drink = 0.6 oz pur e alcohol) Utilities Answer Date Recorded In the past 12 months has [employer], gas, oil, or water [employer] threatened to shut off services in your [...] place to sleep or slept in a longterm (including now)? No 11/05/2023 Housing Stability Vital Sign Answer Gilbert e Recorded In the last 12 months, was t here a time when you were not able to pay the mortgage or rent on time? No 04/28/2024 In the past 12 months, how m any times have you moved where you were living? 0 04/28/2024 At any time in the past 12 m [facility], were you homeless or living in a longterm (including now)? No 04/28/2024 Sex and Gender Information Value Date Recorded Sex Assigned at Not on file Legal Sex Male 11:05 AM EDT Gender Identity Not on file Sexual Orientation Not on file documented as of this encounter Miscellaneous Notes * Telephone Encounter - Radha Aguilar - 04/27/2024 5:33 PM EDT COMPLETED documented in this encounter Plan of Treatment Upcoming Encounters Date Type Department Care Team (Late st Contact Info) Description 07/15/2024 9:00 AM EST Hospital [facility] Interventional Radiology [address] [place] [phone] Hreve Carrillo MD [address] [facility] Ed [address] [place] [address] documented as of this encounter Visit Diagnoses Not on filedocumented in this encounter Additional Health Concerns Assessment Noted Time PHQ-9 Depression Total Score: 0 12/06/19 18 3:00 PM EDT documented as of this encounter Care Teams Egg Grader Relationship Specialty Start Date End Date Edgar Fournier MD [address] [place] [address] [place] [address] PCP - General 12/22/21 Maile Valles, JANA Txp Post Coordinator Transplant Hepatology 11/07/17 Jack Ordoñez MD [address] [place] [phone] Consulting Physician Transplant Hepatology 01/05/18 Estephania Sharif, Wilbert Pharmacist Pharmacist 11/11/19 documented as of this encounter
--- OUTSIDE RECORDS SUMMARY | 2024-07-12 12:23 | XMS_ITS | Encounter Summary ---
Author Organization [facility] Address [address] [place] [address] Care Team Providers Care Senior Research Fellow Name Role Phone Maile Valles RN Unavailable Unavail able Jack Ordoñez MD Unavailable [phone] Estephania Sharif PharmD Unavailable Christine Edgar Tolentino MD Primary Care Provider [phone] Source Comments This information has been disclosed [...] release of HIV test results or diagnoses. [id number] Health Encounter Details Date Type Department Care Team (Late st Contact Info) Description 04/05/2024 Telephone [facility] Cardiac Stress Lab at [facility] [address] [facility] [address] [place] [address] Earnest Ibarra, JANA Social History [...] place to sleep or slept in a intermediate (including now)? No 11/05/2023 Sex and Gender Information Value Date Recorded Sex Assigned at Not on file Legal Sex Male 11:05 AM EDT Gender Identity Not on file Sexual Orientation Not on file documented as of this encounter Plan of Treatment Upcoming Encounters Date Type Department Care Team (Late st Contact Info) Description 07/15/2024 9:00 AM EST Hospital Encounter [facility] Interventional Radiology [address] [place] [phone] Herve Carrillo MD [address] [facility] [address] [place] [address] documented as of this encounter Visit Diagnoses Not on filedocumented in this encounter Additional Health Concerns Assessment Noted Time PHQ-9 Depression Total Score: 0 12/06/19 18 3:00 PM EDT documented as of this encounter Care Teams Senior Research Fellow Relationship Specialty Start Date End Date Edgar Fournier MD [address] [place] [address] [place] [address] PCP - General 12/22/21 Maile Valles, RN Txp Post Coordinator Transplant Hepatology 11/07/17 Jack Ordoñez MD [address] [place] [phone] Consulting Physician Transplant Hepatology 01/05/18 Estephania Sharif, DarrianD Pharmacist Pharmacist 11/11/19 documented as of this encounter
--- OUTSIDE RECORDS SUMMARY | 2024-07-12 12:23 | XMS_ITS | Encounter Summary ---
Author Organization [facility] Address [address] [place] [address] Care Team Providers Care Safety Glass Installer Name Role Phone Maile Valles RN Unavailable Unavail able Jack Ordoñez MD Unavailable [phone] Estephania Sharif PharmD Unavailable Christine Edgar Tolentino MD Primary Care Provider [phone] Source Comments This information has been disclosed [...] release of HIV test results or diagnoses. [id number] Encounter Details Date Type Department Care Team (Latest Contact Info) Description 04/17/2024 Travel Social History Tobacco Use Types Packs/Day Years Used Date Smoking Tobacco: Never Smokeless Tobacco: Never Alcohol Use Standard Drinks/Week Comments Never 0 (1 standard drink = 0.6 oz pur e alcohol) Utilities Answer Date Recorded In the past 12 months has [employer] e electric, gas, oil, or water company [...] place to sleep or slept in a prison (including now)? No 11/05/2023 Housing Stability Vital [...] were you homeless or living in a prison (including now)? No 04/17/2024 Sex and Gender Information Value Date Recorded Sex Assigned at Not on file Legal Sex Male 11:05 AM EDT Gender Identity Not on file Sexual Orientation Not on file documented as of this encounter Plan of Treatment Upcoming Encounters Date Type Department Care Team (Late st Contact Info) Description 07/15/2024 9:00 AM EST Hospital Encounter [facility] Interventional Radiology [address] [place] [phone] Herve Carrillo MD [address] [facility] [address] [place] [phone] documented as of this encounter Visit Diagnoses Not on filedocumented in this encounter Additional Health Concerns Assessment Noted Time PHQ-9 Depression Total Score: 0 12/06/19 18 3:00 PM EDT documented as of this encounter Care Teams Safety Glass Installer Relationship Specialty Start Date End Date Edgar Fournier MD [address] [place] [address] [place] [address] PCP - General 12/22/21 Maile Valles, RN Txp Post Coordinator Transplant Hepatology 11/07/17 Jack Ordoñez MD [address] [place] [phone] Consulting Physician Transplant Hepatology 01/05/18 Estephania Sharif, PharmD Pharmacist Pharmacist 11/11/19 documented as of this encounter
--- OUTSIDE RECORDS SUMMARY | 2024-07-12 12:23 | XMS_ITS | Encounter Summary ---
Author Organization [facility] Address [facility] [place] [address] Care Team Providers Care Certified Novell Engineer Name Role Phone Maile Valles RN Unavailable Unavail able Jack Ordoñez MD Unavailable [phone] Estephania Sharif PharmD Unavailable Christine Edgar Tolentino MD Primary Care Provider [phone] Source Comments This information has been disclosed [...] release of HIV test results or diagnoses. [id number] Reason for Referral * Imaging/Cardiovascular Scan (Routine) - Authorized Specialty Diagnoses / Procedures Referred By Contac t Referred To Contact Cardiology Diagnoses ESRD (end stage renal disease) ([facility]) Procedures Echo Stress Exercise Marcelino Montalvo III, MD [address] [facility] [address] [place] [address] Phone: tel: fax: Referral ID Status Reason Start Date Expiration Date V isits Requested Visits Authorized [id number] Authorized 04/12/2024 10/09/2024 1 1 Encounter Details Date Type Department Care Team (Arsen santana Contact Info) Description 04/12/2024 Orders Only PROVIDER TRANSPLANT [address] [place] [address] Marcelino Montalvo III, MD [address] [facility] [address] [place] [address] ESRD (end stage renal disease) ([facility]) (Primary Dx) Social History Tobacco Use Types Packs/Day Years Used Date Smoking Tobacco: Never Smokeless Tobacco: Never Alcohol Use Standard Drinks/Week Comments Never 0 (1 standard drink = 0.6 oz pur e alcohol) Utilities Answer Date Recorded In the past 12 months has th e [employer], gas, oil, or water [email or web address] threatened to shut off services in your [...] Description 07/15/2024 9:00 AM EST Hospital Encounter [facility] Interventional Radiology [address] [place] [phone] Herve Carrillo MD [address] [facility] [address] [place] [address] Scheduled Orders Name Type Priority Associated Diagnoses Orde r Schedule Echo Stress Exercise Echocardiography Routine ESRD (end stage renal disease) (CMS-HCC) 1 Occurrences starting 04/12/2024 until 04/12/2025 documented as of this encounter Visit Diagnoses Diagnosis ESRD (end stage renal disease) (CMS-HCC)- Primary End stage renal disease documented in this encounter Additional Health Concerns Assessment Noted Time PHQ-9 Depression Total Score: 0 12/06/19 18 3:00 PM EDT documented as of this encounter Care Teams Certified Novell Engineer Relationship Specialty Start Date End Date Edgar Fournier MD [address] [place] [address] [place] [address] PCP - General 12/22/21 Maile Valles, JANA Txp Post Coordinator Transplant Hepatology 11/07/17 Jack Ordoñez MD [address] [place] [phone] Consulting Physician Transplant Hepatology 01/05/18 Estephania Sharif, DarrianD Pharmacist Pharmacist 11/11/19 documented as of this encounter
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
--- OUTSIDE RECORDS SUMMARY | 2024-07-12 12:23 | XMS_ITS | Encounter Summary ---
Author Organization [facility] Address [address] [place] [address] Care Team Providers Care Cardiac Nurse Name Role Phone Maile Valles RN Unavailable Unavail able Jack Ordoñez MD Unavailable [phone] Estephania Sharif PharmD Unavailable Christine Edgar Tolentino MD Primary Care Provider [phone] Source Comments This information has been disclosed [...] release of HIV test results or diagnoses. [id number] Reason for Visit * Reason Comments Referral for test ordered. Encounter Details Date Type Department Care Team (Late st Contact Info) Description 04/11/2024 Telephone [facility] Kidney Transplant at [address] [address] [place], [place] Referral for test ordered. Social History Tobacco Use Types Packs/Day Years [...] place to sleep or slept in a penitentiary (including now)? No 11/05/2023 Sex and Gender Information Value Date Recorded Sex Assigned at Not on file Legal Sex Male 11:05 AM EDT Gender Identity Not on file Sexual Orientation Not on file documented as of this encounter Progress Notes * Roxi Renner MA - 04/11/2024 2:38 PM EDT Pt phoned in requesting a referral for his stress test. Test is scheduled for 04/19/[address] [facility]. Pt states insurance is not covering test r/t no referral. This REBEKAH sent Epic message to Dr. Tiffanie Montalvo requesting review. documented in this encounter Plan of Treatment Upcoming Encounters Date Type Department Care Team (Late st Contact Info) Description 07/15/2024 9:00 AM EST Hospital Encounter [facility] Interventional Radiology [address] [place] [phone] Herve Carrillo MD [address] [facility] [address] [place] [phone] documented as of this encounter Visit Diagnoses Not on filedocumented in this encounter Additional Health Concerns Assessment Noted Time PHQ-9 Depression Total Score: 0 12/06/19 18 3:00 PM EDT documented as of this encounter Care Teams Cardiac Nurse Relationship Specialty Start Date End Date Edgar Fournier MD [address] [place] [address] [place] [address] PCP - General 12/22/21 Maile Valles, RN Txp Post Coordinator Transplant Hepatology 11/07/17 Jack Ordoñez MD [address] [place] [phone] Consulting Physician Transplant Hepatology 01/05/18 Estephania Sharif, DarrianD Pharmacist Pharmacist 11/11/19 documented as of this encounter
--- OUTSIDE RECORDS SUMMARY | 2024-07-12 12:23 | XMS_ITS | Encounter Summary ---
Author Organization [facility] Address [address] [place] [address] Care Team Providers Care Film Vault Supervisor Name Role Phone Maile Valles RN Unavailable Unavail able Jack Ordoñez MD Unavailable [phone] Estephania Sharif PharmD Unavailable Christine Edgar Tolentino MD Primary Care Provider [phone] Source Comments This information has been disclosed [...] release of HIV test results or diagnoses. [id number] Health Encounter Details Date Type Department Care Team (Late st Contact Info) Description 04/19/2024 Telephone [facility] Cardiac Stress Lab at [facility] [address] [facility] [address] [place] [address] Markus Hood RN Social History Tobacco Use Types Packs/Day Years Used Date Smoking Tobacco: Never Smokeless Tobacco: Never Alcohol Use Standard Drinks/Week Comments Never 0 (1 standard drink = 0.6 oz pur e alcohol) Utilities Answer Date Recorded In the past 12 months has th e electric, gas, oil, or water [employer] threatened to shut off services in your [...] in a penitentiary (including now)? No 11/05/2023 Housing Stability Vital [...] were you homeless or living in a penitentiary (including now)? No 04/17/2024 Sex and Gender Information Value Date Recorded Sex Assigned at Not on file Legal Sex Male 11:05 AM EDT Gender Identity Not on file Sexual Orientation Not on file documented as of this encounter Miscellaneous Notes * Telephone Encounter - Markus Hood RN - 04/19/2024 8:56 AM EDT Patient called in today. Patient was just inpatient at [facility] and was D/C yesterday from the hospital. Patient stated he would not make it to his scheduled stress echo today. Informed patient thatcurrently we only have an order for a treadmill stress echo. Patient stated he in unable to do the t readmill and needs to do the pharmacologic version of the test. Informed patient that I have already sent a message to the ordering provider to get the correct order placed. Patient stated they would like us to message them on mychart once we get the proper order and get him rescheduled with the Dobutamine Stress Echo. Patient verbalized understanding. Stress Echo cancelled at this time. Will reach out to patient once we get the proper order placed. documented in this encounter Plan of Treatment Upcoming Encounters Date Type Department Care Team (Late st Contact Info) Description 07/15/2024 9:00 AM [facility] Hospital Encounter [facility] Interventional Radiology [address] [place] [phone] Herve Carrillo MD [address] [facility] [address] [facility] [place] [phone] documented as of this encounter Visit Diagnoses Not on filedocumented in this encounter Additional Health Concerns Assessment Noted Time PHQ-9 Depression Total Score: 0 12/06/19 18 3:00 PM EDT documented as of this encounter Care Teams Film Vault Supervisor Relationship Specialty Start Date End Date Edgar Fournier MD [address] [place] [address] [place] [address] PCP - General 12/22/21 Maile Valles, JANA Txp Post Coordinator Transplant Hepatology 11/07/17 Jack Ordoñez MD [address] [place] [phone] Consulting Physician Transplant Hepatology 01/05/18 Estephania Sharif, PharmD Pharmacist Pharmacist 11/11/19 documented as of this encounter
--- OUTSIDE RECORDS SUMMARY | 2024-07-12 12:24 | XMS_ITS | Encounter Summary ---
Author Organization [facility] Address [address] [place] [address] Care Team Providers Care Graphic Design Manager Name Role Phone Maile Valles RN Unavailable Unavail able Jack Ordoñez MD Unavailable [phone] Estephania Sharif PharmD Unavailable Christine Edgar Tolentino MD Primary Care Provider [phone] Source Comments This information has been disclosed [...] release of HIV test results or diagnoses. [id number] Health Encounter Details Date Type Department Care Team (Late st Contact Info) Description 12/15/2023 Telephone [facility] Liver Transplant at [place] [id number] [facility] [address] [place] [address] Estrella Goodrich MA Social History Tobacco Use Types Packs/Day [...] encounter Miscellaneous Notes * Telephone Encounter - Estrella Goodrich MA - 12/15/2023 2:46 PM EDT Pt calling with a question that arose during appt in clinic. Pt states they discussed with Dr. Montalvo the option to go to another state to have a robotic kidney transplant completed. Pt is wondering if Dr. Montalvo has any updates for pt regarding this. documented in this encounter Plan of Treatment Upcoming Encounters Date Type Department Care Team (Late st Contact Info) Description 07/15/2024 9:00 AM EST Hospital Encounter [facility] Interventional Radiology [address] [place] [address] Herve Carrillo MD [address] [address] [place] [phone] documented as of this encounter Visit Diagnoses Not on filedocumented in this encounter Additional Health Concerns Assessment Noted Time PHQ-9 Depression Total Score: 0 12/06/19 18 3:00 PM EDT documented as of this encounter Care Teams Graphic Design Manager Relationship Specialty Start Date End Date Edgar Fournier MD [address] [place] [address] [place] [address] PCP - General 12/22/21 Maile Valles, RN Txp Post Coordinator Transplant Hepatology 11/07/17 Jack Ordoñez MD [address] [place] [phone] Consulting Physician Transplant Hepatology 01/05/18 Estephania Sharif, DarrianD Pharmacist Pharmacist 11/11/19 documented as of this encounter
--- OUTSIDE RECORDS SUMMARY | 2024-07-12 12:24 | XMS_ITS | Encounter Summary ---
Author Organization [facility] Address [address] [place] [address] Care Team Providers Care Canopy Stringer Name Role Phone Maile Valles RN Unavailable Unavail able Jack Ordoñez MD Unavailable [phone] Estephania Sharif PharmD Unavailable Christine Edgar Tolentino MD Primary Care Provider [phone] Source Comments This information has been disclosed [...] release of HIV test results or diagnoses. [id number] Health Encounter Details Date Type Department Care Team (Late st Contact Info) Description 02/16/2024 Telephone [facility] Liver Transplant at [place] [id number] [facility] [address] [place] [address] Lynnette Muhammad MA Social History Tobacco Use Types Packs/Day [...] place to sleep or slept in a fdc (including now)? No 11/05/2023 Sex and Gender Information Value Date Recorded Sex Assigned at Not on file Legal Sex Male 11:05 AM EDT Gender Identity Not on file Sexual Orientation Not on file documented as of this encounter Miscellaneous Notes * Telephone Encounter - Lynnette Muhammad MA - 02/16/2024 12:17 PM EDT Pt called to let us know he will be going to [facility] lab next Monday and would like his lab orders faxed over there. Orders have been faxed and confirmation was received. documented in this encounter Plan of Treatment Upcoming Encounters Date Type Department Care Team (Late st Contact Info) Description 07/15/2024 9:00 AM EST Hospital Encounter [facility] Interventional Radiology [address] [place] [address] Herve Carrillo MD [address] [facility] [address] [place] [phone] documented as of this encounter Visit Diagnoses Not on filedocumented in this encounter Additional Health Concerns Assessment Noted Time PHQ-9 Depression Total Score: 0 12/06/19 18 3:00 PM EDT documented as of this encounter Care Teams Canopy Stringer Relationship Specialty Start Date End Date Edgar Fournier MD [address] [place] [address] [place] [address] PCP - General 12/22/21 Maile Valles, JANA Txp Post Coordinator Transplant Hepatology 11/07/17 Jack Ordoñez MD [address] [place] [phone] Consulting Physician Transplant Hepatology 01/05/18 Estephania Sharif, DarrianD Pharmacist Pharmacist 11/11/19 documented as of this encounter
--- OUTSIDE RECORDS SUMMARY | 2024-07-12 12:24 | XMS_ITS | Encounter Summary ---
Author Organization [facility] Address [address] [place] [address] Care Team Providers Care Bookkeepers Supervisor Name Role Phone Maile Valles RN Unavailable Unavail able Jack Ordoñez MD Unavailable [phone] Estephania Sharif PharmD Unavailable Christine Edgar Tolentino MD Primary Care Provider [phone] Source Comments This information has been disclosed [...] release of HIV test results or diagnoses. [id number] Reason for Visit * Reason Comments Medication Refill Encounter Details Date Type Department Care Team (Late st Contact Info) Description 01/16/2024 Refill [facility] Liver Transplant at [facility] [address] [facility] [address] [place] [address] Jack Ordoñez MD [address] [place] [address] Social History Tobacco Use Types [...] in a assisted (including now)? No 11/05/2023 Sex and Gender Information Value Date Recorded Sex Assigned at Not on file Legal Sex Male 11:05 AM EDT Gender Identity Not on file Sexual Orientation Not on file documented as of this encounter Plan of Treatment Upcoming Encounters Date Type Department Care Team (Late st Contact Info) Description 07/15/2024 9:00 AM EST Hospital Encounter [facility] Interventional Radiology [address] [place] [phone] Herve Carrillo MD [address] [facility] [address] [place] [phone] documented as of this encounter Visit Diagnoses Not on filedocumented in this encounter Additional Health Concerns Assessment Noted Time PHQ-9 Depression Total Score: 0 12/06/19 18 3:00 PM EDT documented as of this encounter Care Teams Bookkeepers Supervisor Relationship Specialty Start Date End Date Edgar Fournier MD [address] [place] [address] [place] [address] PCP - General 12/22/21 Maile Valles, RN Txp Post Coordinator Transplant Hepatology 11/07/17 Jack Ordoñez [place] [address] [place] [phone] Consulting Physician Transplant Hepatology 01/05/18 Estephania Sharif, DarrianD Pharmacist Pharmacist 11/11/19 documented as of this encounter
--- OUTSIDE RECORDS SUMMARY | 2024-07-12 12:24 | XMS_ITS | Encounter Summary ---
Author Organization [facility] Address [address] [place] [address] Care Team Providers Care Airport Ramp Supervisor Name Role Phone Maile Valles RN Unavailable Unavail able Jack Ordoñez MD Unavailable [phone] Estephania Sharif PharmD Unavailable Christine Edgar Tolentino MD Primary Care Provider [phone] Source Comments This information has been disclosed [...] release of HIV test results or diagnoses. [id number] Health Encounter Details Date Type Department Care Team (Latest Contact Info) Description 11/23/2023 10:33 AM EDT - 11/23/2023 11:59 PM EDT Hospital Encounter [facility] Radiology [address] [place] [address] Marcelino Montalvo III, MD [address] [facility] [address] [place] [address] Incisional hernia, without obstruction or gangrene Discharge Disposition: Home or Self Care WITHOUT [...] in a snf (including now)? No 11/05/2023 Sex and Gender [...] mg total) by mouth daily with breakfast. doxazosin (CARDURA) 8 MG tablet Take 1 [...] (10 mg total) by mouth daily. 2 NIFEdipine (PROCARDIA-XL) 90 MG (OSM) 24 hr [...] Inject into the muscle every 28 days. tenapanor (XPHOZAH) 30 mg TabIndications:Cons tipation Predominant Irritable Bowel Syndrome Take 30 mg by mouth 2 times a day with meals for 30 days. Indications: Constipation Predominant Irritable Bowel Syndrome 60 tablet 4 12/09/19 24 carvediloL (COREG) 25 MG tabletIndications:P re-transplant evaluation for kidney transplant,Pulmonar y HTN (CMS-HCC),Essential (primary) hypertension Take 2 tablets (50 mg total) by mouth 2 times a day with meals. 180 tablet 5 2 01/25/20 24 clonazePAM (KLONOPIN) 0.5 MG tablet Take 1 tablet (0.5 mg total) by mouth daily as needed for Anxiety. 04/17/20 24 cycloSPORINE modified 25 MG capsuleIndications: Prevention of Liver Transplant Rejection Take 4 capsules (100 mg total) by mouth every morning AND 5 capsules (125 mg total) at bedtime. 270 capsule 2 01/19/2024 8:38 AM EDT 4 02/19/20 24 insulin aspart U-100 (NOVOLOG) 100 unit/mL injection Inject subcutaneously 3 times a day with meals. Dose based on sliding scale 04/28/20 24 mycophenolate (CELLCEPT) 250 mg capsule Take 1 capsule (250 mg total) by mouth 2 times a day. 180 capsule 1 10/26/2023 11:14 AM EDT 3 01/16/20 24 ondansetron (ZOFRAN-ODT) 4 MG disintegrating tablet Take 1 tablet (4 mg total) by mouth every 8 hours as needed. 8 04/28/20 24 proMETHazine (PHENERGAN) 25 MG tablet Take 1 tablet (25 mg total) by mouth if needed. 04/17/20 24 VASCEPA 1 gram Cap TAKE 2 Capsule by mouth twice daily 2 01/25/20 24 documented as of this encounter Plan of Treatment Upcoming Encounters Date Type Department Care Team (Late st Contact Info) Description 07/15/2024 9:00 AM EST Hospital Encounter [facility] Interventional Radiology [address] [place] [phone] Herve Carrillo MD [address] [facility] [address] [place] [address] documented as of this encounter Procedures Procedure Name Priority Date/Time Associated Diagnosis Comments XR COMPARISON IMAGES Routine 11/23/2023 10:33 AM EDT Incisional hernia, without obstruction or gangrene documented in this encounter Results * X-ray Comparison Images (11/23/2023 10:33 AM EDT) Narrative 11/23/2023 10:33 AM EDT Images associated with this accession number were presented to us for comparison to an examination performed here. MD SONIA López III DIAGNOSTIC IMAG ING ORDERABLES Final Result documented in this encounter Visit Diagnoses Diagnosis Incisional hernia, without obstruction or gangrene documented in this encounter Additional Health Concerns Assessment Noted Time PHQ-9 Depression Total Score: 0 12/06/19 18 3:00 PM EDT documented as of this encounter Care Teams Airport Ramp Supervisor Relationship Specialty Start Date End Date Edgar Fournier MD [address] [place] [address] [place] [address] PCP - General 12/22/21 Maile Valles, RN Txp Post Coordinator Transplant Hepatology 11/07/17 Jack Ordoñez MD [address] [place] [phone] Consulting Physician Transplant Hepatology 01/05/18 Estephania Sharif, Wilbert Pharmacist Pharmacist 11/11/19 documented as of this encounter
--- OUTSIDE RECORDS SUMMARY | 2024-07-12 12:24 | XMS_ITS | Encounter Summary ---
Author Organization [facility] Address [facility] [place] [address] Care Team Providers Care Ux Information Architect Name Role Phone Maile Valles RN Unavailable Unavail able Jack Ordoñez MD Unavailable [phone] Estephania Sharif PharmD Unavailable Christine Edgar Tolentino MD Primary Care Provider [phone] Source Comments This information has been disclosed [...] release of HIV test results or diagnoses. [id number] Health Encounter Details Date Type Department Care Team (Late st Contact Info) Description 12/15/2023 Telephone [facility] Interventional Radiology [address] [place] [address] Lesli rFost RN Social History Tobacco Use Types Packs/Day Years Used Date Smoking Tobacco: Never Smokeless Tobacco: Never Alcohol Use Standard Drinks/Week Comments Never 0 (1 standard drink = 0.6 oz pur e alcohol) Utilities Answer Date Recorded In the past 12 months has [employer], [employer], or [employer] threatened to shut off services in your [...] in a half-way (including now)? No 11/05/2023 Sex and Gender Information Value Date Recorded Sex Assigned at Not on file Legal Sex Male 11:05 AM EDT Gender Identity Not on file Sexual Orientation Not on file documented as of this encounter Miscellaneous Notes * Telephone Encounter - Lesli Frost RN - 12/15/2023 2:41 PM EDT Aiden Stauffer Jr. contacted to remind of scheduled bilateral UE venogram on 12/18/[address] [facility]. Arrival time 0930 for procedure time of 1030. NPO after midnight. Need for driver medic reviewed. Directions provided. Verbalizes understanding and all questions answered. Pre-op call complete. documented in this encounter Plan of Treatment Upcoming Encounters Date Type Department Care Team (Late st Contact Info) Description 07/15/2024 9:00 AM EST Hospital Encounter [facility] Interventional Radiology [address] [place] [address] Herve Carrillo MD [address] [facility] [address] [place] [phone] documented as of this encounter Visit Diagnoses Not on filedocumented in this encounter Additional Health Concerns Assessment Noted Time PHQ-9 Depression Total Score: 0 12/06/19 18 3:00 PM EDT documented as of this encounter Care Teams Ux Information Architect Relationship Specialty Start Date End Date Edgar Fournier MD [address] [place] [address] [place] [address] PCP - General 12/22/21 Maile Valles, JANA Txp Post Coordinator Transplant Hepatology 11/07/17 Jack Ordoñez MD [address] [place] [phone] Consulting Physician Transplant Hepatology 01/05/18 Estephania Sharif, Wilbert Pharmacist Pharmacist 11/11/19 documented as of this encounter
--- OUTSIDE RECORDS SUMMARY | 2024-07-12 12:24 | XMS_ITS | Encounter Summary ---
Author Organization [facility] Address [address] [place] [address] Care Team Providers Care Sheet Tester Name Role Phone Maile Valles RN Unavailable Unavail able Jack Ordoñez MD Unavailable Estephania Sharif PharmD Unavailable Christine Edgar Tolentino MD Primary Care Provider [phone] Source Comments This information has been disclosed [...] release of HIV test results or diagnoses. [id number] Health Encounter Details Date Type Department Care Team (Latest Contact Info) Description 01/14/2024 Travel Social History Tobacco Use Types Packs/Day Years Used Date Smoking Tobacco: Never Smokeless Tobacco: Never Alcohol Use Standard Drinks/Week Comments Never 0 (1 standard drink = 0.6 oz pur e alcohol) Utilities Answer Date Recorded In the past 12 months has [employer] e electric, gas, oil, or water company [...] Description 07/15/2024 9:00 AM EST Hospital Encounter [facility] Interventional Radiology [address] [place] [address] Herve Carrillo MD [address] [place] [phone] documented as of this encounter Visit Diagnoses Not on filedocumented in this encounter Additional Health Concerns Assessment Noted Time PHQ-9 Depression Total Score: 0 12/06/19 18 3:00 PM EDT documented as of this encounter Care Teams Sheet Tester Relationship Specialty Start Date End Date Edgar Fournier MD [address] [place] [address] [place] [address] PCP - General 12/22/21 Maile Valles, JNAA Txp Post Coordinator Transplant Hepatology 11/07/17 Jack Ordoñez MD [address] [place] [phone] Consulting Physician Transplant Hepatology 01/05/18 Estephania Sharif, DarrianD Pharmacist Pharmacist 11/11/19 documented as of this encounter
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
--- OUTSIDE RECORDS SUMMARY | 2024-07-12 12:24 | XMS_ITS | Encounter Summary ---
Author Organization [facility] Address [address] [place] [address] Care Team Providers Care District Court Judge Name Role Phone Maile Valles RN Unavailable Unavail able Jack Ordoñez MD Unavailable Estephania Sharif PharmD Unavailable Christine Edgar Tolentino MD Primary Care Provider [phone] Source Comments This information has been disclosed [...] release of HIV test results or diagnoses. [id number] Encounter Details Date Type Department Care Team (Latest Contact Info) Description 01/01/2024 Travel Social History Tobacco Use Types Packs/Day Years Used Date Smoking Tobacco: Never Smokeless Tobacco: Never Alcohol Use Standard Drinks/Week Comments Never 0 (1 standard drink = 0.6 oz pur e alcohol) Utilities Answer Date Recorded In the past 12 months has [employer] e electric, gas, oil, or water company [...] Description 07/15/2024 9:00 AM EST Hospital Encounter [facility] Interventional Radiology [address] [place] [address] Herve Carrillo MD [address] [place] [phone] documented as of this encounter Visit Diagnoses Not on filedocumented in this encounter Additional Health Concerns Assessment Noted Time PHQ-9 Depression Total Score: 0 12/06/19 18 3:00 PM EDT documented as of this encounter Care Teams District Court Judge Relationship Specialty Start Date End Date Edgar Fournier MD [address] [place] [address] [place] [address] PCP - General 12/22/21 Maile Valles, JANA Txp Post Coordinator Transplant Hepatology 11/07/17 Jack Ordoñez MD [address] [place] [address] Consulting Physician Transplant Hepatology 01/05/18 Estephania Sharif, DarrianD Pharmacist Pharmacist 11/11/19 documented as of this encounter
--- OUTSIDE RECORDS SUMMARY | 2024-07-12 12:24 | XMS_ITS | Encounter Summary ---
Author Organization [facility] Address [address] [place] [address] Care Team Providers Care Controls Designer Name Role Phone Maile Valles RN Unavailable Unavail able Jack Ordoñez MD Unavailable [phone] Estephania Sharif PharmD Unavailable Christine Edgar Tolentino MD Primary Care Provider [phone] Source Comments This information has been disclosed [...] release of HIV test results or diagnoses. [id number] Reason for Visit * Reason Comments Appointment Encounter Details Date Type Department Care Team (Late st Contact Info) Description 01/31/2024 Telephone [facility] Vascular Access at [facility] [address] [facility] [address] [place] [address] Marilin Grigsby Appointment Social History Tobacco Use Types Packs/Day Years Used Date Smoking Tobacco: Never Smokeless Tobacco: Never Alcohol Use Standard Drinks/Week Comments Never 0 (1 standard drink = 0.6 oz pur e alcohol) Utilities Answer Date Recorded In the past 12 months has th e [employer], gas, oil, or water company threatened to [...] a nursing home (including now)? No 11/05/2023 Sex and Gender Information Value Date Recorded Sex Assigned at Not on file Legal Sex Male 11:05 AM EDT Gender Identity Not on file Sexual Orientation Not on file documented as of this encounter Progress Notes * Marilin Grigsby - 01/31/2024 11:54 AM EDT Called pt to get scheduled for access planning. No answer but left a message with our direct call back number to get scheduled. documented in this encounter Plan of Treatment Upcoming Encounters Date Type Department Care Team (Late st Contact Info) Description 07/15/2024 9:00 AM EST Hospital Encounter [facility] Interventional Radiology [address] [place] [address] Herve Carrillo MD [address] [facility] [address] [place] [phone] documented as of this encounter Visit Diagnoses Not on filedocumented in this encounter Additional Health Concerns Assessment Noted Time PHQ-9 Depression Total Score: 0 12/06/19 18 3:00 PM EDT documented as of this encounter Care Teams Controls Designer Relationship Specialty Start Date End Date Edgar Fournier MD [address] [place] [address] [place] [address] PCP - General 12/22/21 Maile Valles, RN Txp Post Coordinator Transplant Hepatology 11/07/17 Jack Ordoñez MD [address] [place] [phone] Consulting Physician Transplant Hepatology 01/05/18 Estephania Sharif, Wilbert Pharmacist Pharmacist 11/11/19 documented as of this encounter
--- OUTSIDE RECORDS SUMMARY | 2024-07-12 12:24 | XMS_ITS | Encounter Summary ---
Author Organization [facility] Address [address] [place] [address] Care Team Providers Care Transmission Specialist Name Role Phone Maile Valles RN Unavailable Unavail able Jack Ordoñez MD Unavailable Estephania Sharif PharmD Unavailable Christine Edgar Tolentino MD Primary Care Provider [phone] Source Comments This information has been disclosed [...] release of HIV test results or diagnoses. [id number] Encounter Details Date Type Department Care Team (Latest Contact Info) Description 12/14/2023 Travel Social History Tobacco Use Types Packs/Day Years Used Date Smoking Tobacco: Never Smokeless Tobacco: Never Alcohol Use Standard Drinks/Week Comments Never 0 (1 standard drink = 0.6 oz pur e alcohol) Utilities Answer Date Recorded In the past 12 months has e electric, gas, oil, or water company [...] a senior care (including now)? No 11/05/2023 Sex and Gender Information Value Date Recorded Sex Assigned at Not on file Legal Sex Male 11:05 AM EDT Gender Identity Not on file Sexual Orientation Not on file documented as of this encounter Plan of Treatment Upcoming Encounters Date Type Department Care Team (Late st Contact Info) Description 07/15/2024 9:00 AM EST Hospital Encounter [facility] Interventional Radiology [address] [place] [address] Herve Carrillo MD [address] [place] [phone] documented as of this encounter Visit Diagnoses Not on filedocumented in this encounter Additional Health Concerns Assessment Noted Time PHQ-9 Depression Total Score: 0 12/06/19 18 3:00 PM EDT documented as of this encounter Care Teams Transmission Specialist Relationship Specialty Start Date End Date Edgar Fournier MD [address] [place] [address] [place] [address] PCP - General 12/22/21 Maile Valles, JANA Txp Post Coordinator Transplant Hepatology 11/07/17 Jack Ordoñez MD [address] [place] [phone] Consulting Physician Transplant Hepatology 01/05/18 Estephania Sharif, DarrianD Pharmacist Pharmacist 11/11/19 documented as of this encounter
--- OUTSIDE RECORDS SUMMARY | 2024-07-12 12:24 | XMS_ITS | Encounter Summary ---
Author Organization [facility] Address [address] [place] [address] Care Team Providers Care Shrimp Packer Name Role Phone Maile Valles RN Unavailable Unavail able Jack Ordoñez MD Unavailable Estephania Sharif PharmD Unavailable Christine Edgar Tolentino MD Primary Care Provider [phone] Source Comments This information has been disclosed [...] release of HIV test results or diagnoses. [id number] Encounter Details Date Type Department Care Team (Latest Contact Info) Description 12/13/2023 Travel Social History Tobacco Use Types Packs/Day [...] in a retirement (including now)? No 11/05/2023 Sex and Gender Information Value Date Recorded Sex Assigned at Not on file Legal Sex Male 11:05 AM EDT Gender Identity Not on file Sexual Orientation Not on file documented as of this encounter Plan of Treatment Upcoming Encounters Date Type Department Care Team (Late st Contact Info) Description 07/15/2024 9:00 AM EST Hospital Encounter [facility] Interventional Radiology [address] [place] [address] Herve Carrillo MD [address] [place] [phone] documented as of this encounter Visit Diagnoses Not on filedocumented in this encounter Additional Health Concerns Assessment Noted Time PHQ-9 Depression Total Score: 0 12/06/19 18 3:00 PM EDT documented as of this encounter Care Teams Shrimp Packer Relationship Specialty Start Date End Date Edgar Fournier MD [address] [place] [address] [place] [address] PCP - General 12/22/21 Maile Valels, JANA Txp Post Coordinator Transplant Hepatology 11/07/17 Jack Ordoñez MD [address] [place] [phone] Consulting Physician Transplant Hepatology 01/05/18 Estephania Sharif, DarrianD Pharmacist Pharmacist 11/11/19 documented as of this encounter
--- OUTSIDE RECORDS SUMMARY | 2024-07-12 12:24 | XMS_ITS | Encounter Summary ---
Author Organization [facility] Address [address] [place] [address] Care Team Providers Care Coke Oven Mason Name Role Phone Maile Valles RN Unavailable Unavail able Jack Ordoñez MD Unavailable [phone] Estephania Sharif PharmD Unavailable Christine Edgar Tolentino MD Primary Care Provider [phone] Source Comments This information has been disclosed [...] release of HIV test results or diagnoses. [id number] Reason for Visit * Reason Comments Advice Only Encounter Details Date Type Department Care Team (Late st Contact Info) Description 01/25/2024 Telephone [facility] Liver Transplant at [place] [address] [facility] [address] [place] [address] Anne Whitt MA Advice Only Social History Tobacco Use Types Packs/Day Years [...] a senior living (including now)? No 11/05/2023 Sex and Gender Information Value Date Recorded Sex Assigned at Not on file Legal Sex Male 11:05 AM EDT Gender Identity Not on file Sexual Orientation Not on file documented as of this encounter Progress Notes * Maile Valles, RN - 01/25/2024 10:20 AM EDT Reviewed chart. Spoke with life educator 01/12/23, answered some medication questions at the time, but specifics not noted. This jingle writer is unaware of any medication that would cause a FALSELY elevated potassium level. Cyclosporine can cause increased levels of potassium in the blood - but patient is on stable cyclosporinedose to prevent rejection of liver graft and would not recommend changes to dose. Hydralazine is not on patient's current medlist, but it too can cause hyperkalemia. Txp MA to update patient. * Anne Whitt MA - 01/25/2024 10:11 AM EDT Pt states he's been having increased potassium levels since on dialysis. States his previous dialysis nurse had talked with RN coordinator and learned there was a medication he took that can sometimes lead to falsely elevated potassium levels. Pt asking what this medication is so he can remind new nurse about it. Pt wondering if it might be hydralazine. States dialysis nurse talked to RN coordinator previously. documented in this encounter Plan of Treatment Upcoming Encounters Date Type Department Care Team (Late st Contact Info) Description 07/15/2024 9:00 AM [facility] Hospital Encounter [facility] Interventional Radiology [address] [place] [phone] Herve Carrillo MD [address] [facility] [address] [facility] [place] [address] documented as of this encounter Visit Diagnoses Not on filedocumented in this encounter Additional Health Concerns Assessment Noted Time PHQ-9 Depression Total Score: 0 12/06/19 18 3:00 PM EDT documented as of this encounter Care Teams Coke Oven Mason Relationship Specialty Start Date End Date Edgar Fournier MD [address] [place] [address] [place] [address] PCP - General 12/22/21 Maile Valles RN Txp Post Coordinator Transplant Hepatology 11/07/17 Jack Ordoñez MD [address] [place] [phone] Consulting Physician Transplant Hepatology 01/05/18 Estephania Sharif, PharmD Pharmacist Pharmacist 11/11/19 documented as of this encounter
--- OUTSIDE RECORDS SUMMARY | 2024-07-12 12:24 | XMS_ITS | Encounter Summary ---
Author Organization [facility] Address [address] [place] [address] Care Team Providers Care Memorandum Statement Clerk Name Role Phone Maile Valles RN Unavailable Unavail able Jack Ordoñez MD Unavailable [phone] Estephania Sharif PharmD Unavailable Christine Edgar Tolentino MD Primary Care Provider [phone] Source Comments This information has been disclosed [...] release of HIV test results or diagnoses. [id number] Reason for Visit * Reason Comments Appointment Encounter Details Date Type Department Care Team (Late st Contact Info) Description 01/31/2024 Telephone [facility] Vascular Access at [facility] [address] [facility] [address] [place] [address] Randal Wright Appointment Social History Tobacco Use Types Packs/Day Years Used Date Smoking Tobacco: Never Smokeless Tobacco: Never Alcohol Use Standard Drinks/Week Comments Never 0 (1 standard drink = 0.6 oz pur e alcohol) Utilities Answer Date Recorded In the past 12 months has th e [employer], gas, oil, or water company threatened to [...] as of this encounter Progress Notes * Randal Wright - 01/31/2024 2:29 PM EDT Patient calling back to schedule appt. He is currently doing HHD. Offered appt for 02/01 with RAMON. Patient wants to be seen by surgeon. Offered 02/09/[address] Bowles. Patient wants after 10:30am. Offered next available with surgeon after 10:30am and he is aware and agreeable. No further questions. Future Appointments Date Time Provider Department Center 02/14/2024 11:30 AM Herve Overton MD [facility] 10/21/2024 10:35 AM Jack Ordo[facility] documented in this encounter Plan of Treatment Upcoming Encounters Date Type Department Care Team (Late st Contact Info) Description 07/15/2024 9:00 AM EST Hospital Encounter [facility] Interventional Radiology [address] [place] [phone] Herve Carrillo MD [address] [facility] [address] [place] [phone] documented as of this encounter Visit Diagnoses Not on filedocumented in this encounter Additional Health Concerns Assessment Noted Time PHQ-9 Depression Total Score: 0 12/06/19 18 3:00 PM EDT documented as of this encounter Care Teams Memorandum Statement Clerk Relationship Specialty Start Date End Date Edgar Fournier MD [address] [place] [address] [place] [address] PCP - General 12/22/21 Maile Valles, RN Txp Post Coordinator Transplant Hepatology 11/07/17 Jack Ordoñez MD [address] [place] [phone] Consulting Physician Transplant Hepatology 01/05/18 Estephania Sharif, DarrianD Pharmacist Pharmacist 11/11/19 documented as of this encounter
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
--- OUTSIDE RECORDS SUMMARY | 2024-07-12 12:24 | XMS_ITS | Encounter Summary ---
Author Organization [facility] Address [address] [place] [address] Care Team Providers Care Gis Physical Scientist Name Role Phone Maile Valles RN Unavailable Unavail able Jack Ordoñez MD Unavailable [phone] Estephania Sharif PharmD Unavailable Christine Edgar Tolentino MD Primary Care Provider [phone] Source Comments This information has been disclosed [...] release of HIV test results or diagnoses. [id number] Reason for Visit * Reason Comments Medication Refill Encounter Details Date Type Department Care Team (Late st Contact Info) Description 02/19/2024 Refill [facility] Internal Medicine at [place] [address] [facility] 2 [place] [address] Jack Ordoñez MD [address] [place] [address] Social History Tobacco Use Types [...] encounter Miscellaneous Notes * Telephone Encounter - Kelly Parikh MA - 02/19/2024 11:46 AM EDT Doctor not at this clinic. documented in this encounter Plan of Treatment Upcoming Encounters Date Type Department Care Team (Late st Contact Info) Description 07/15/2024 9:00 AM EST Hospital Encounter [facility] Interventional Radiology [address] [place] [address] Herve Carrillo MD [address] [facility] [address] [place] [phone] documented as of this encounter Visit Diagnoses Not on filedocumented in this encounter Additional Health Concerns Assessment Noted Time PHQ-9 Depression Total Score: 0 12/06/19 18 3:00 PM EDT documented as of this encounter Care Teams Gis Physical Scientist Relationship Specialty Start Date End Date Edgar Fournier MD [address] [place] [address] [place] [address] PCP - General 12/22/21 Maile Valles, RN Txp Post Coordinator Transplant Hepatology 11/07/17 Jack Ordoñez MD [address] [place] [phone] Consulting Physician Transplant Hepatology 01/05/18 Estephania Sharif, DarrianD Pharmacist Pharmacist 11/11/19 documented as of this encounter
--- OUTSIDE RECORDS SUMMARY | 2024-07-12 12:24 | XMS_ITS | Encounter Summary ---
Author Organization [facility] Address [address] [place] [address] Care Team Providers Care Bottle Tester Name Role Phone Maile Valles RN Unavailable Unavail able Jack Ordoñez MD Unavailable [phone] Estephania Sharif PharmD Unavailable Christine Edgar Tolentino MD Primary Care Provider [phone] Source Comments This information has been disclosed [...] release of HIV test results or diagnoses. [id number] Health Encounter Details Date Type Department Care Team (Late st Contact Info) Description 01/31/2024 Abstract [facility] Vascular Access at [facility] [address] [place] [address] Maru Camp CNP [address] [place] [address] Social History Tobacco Use Types Packs/Day Years [...] Description 07/15/2024 9:00 AM EST Hospital Encounter [facility] Interventional Radiology [address] [place] [phone] Herve Carrillo MD [address] [facility] [address] [place] [phone] documented as of this encounter Visit Diagnoses Not on filedocumented in this encounter Additional Health Concerns Assessment Noted Time PHQ-9 Depression Total Score: 0 12/06/19 18 3:00 PM EDT documented as of this encounter Care Teams Bottle Tester Relationship Specialty Start Date End Date Edgar Fournier MD [address] [place] [address] [place] [address] PCP - General 12/22/21 Maile Valles, RN Txp Post Coordinator Transplant Hepatology 11/07/17 Jack Ordoñez MD [address] [place] [phone] Consulting Physician Transplant Hepatology 01/05/18 Estephania Sharif, PharmD Pharmacist Pharmacist 11/11/19 documented as of this encounter
--- OUTSIDE RECORDS SUMMARY | 2024-07-12 12:24 | XMS_ITS | Encounter Summary ---
Author Organization [facility] Address [address] [place] [address] Care Team Providers Care Ophthalmic Nurse Name Role Phone Maile Valles RN Unavailable Unavail able Jack Ordoñez MD Unavailable [phone] Estephania Sharif PharmD Unavailable Christine Edgar Tolentino MD Primary Care Provider [phone] Source Comments This information has been disclosed [...] release of HIV test results or diagnoses. [id number] Health Encounter Details Date Type Department Care Team (Late st Contact Info) Description 02/16/2024 Orders Only [facility] Liver Transplant at [place] [address] [facility] [address] [place] [address] Lynnette Muhammad MA Liver replaced by transplant ([facility]-HCC); Encounter for therapeutic drug monitoring Social History Tobacco Use Types Packs/Day Years [...] Description 07/15/2024 9:00 AM EST Hospital Encounter [facility] Interventional Radiology [address] [place], [place] [address] [phone] Herve Carrillo MD [address] [facility] [address] [place] [address] documented as of this encounter Visit Diagnoses Diagnosis Liver replaced by transplant (CMS-HCC) Liver replaced by transplant Encounter for therapeutic drug monitoring documented in this encounter Additional Health Concerns Assessment Noted Time PHQ-9 Depression Total Score: 0 12/06/19 18 3:00 PM EDT documented as of this encounter Care Teams Ophthalmic Nurse Relationship Specialty Start Date End Date Edgar Fournier MD [address] [place] [address] [place] [address] PCP - General 12/22/21 Maile Valles, RN Txp Post Coordinator Transplant Hepatology 11/07/17 Jack Ordoñez MD [address] [place] [phone] Consulting Physician Transplant Hepatology 01/05/18 Estephania Sharif, DarrianD Pharmacist Pharmacist 11/11/19 documented as of this encounter
--- OUTSIDE RECORDS SUMMARY | 2024-07-12 12:24 | XMS_ITS | Encounter Summary ---
Author Organization [facility] Address [address] [place] [address] Care Team Providers Care Product Management Manager Name Role Phone aMile Valles RN Unavailable Unavail able Jack Ordoñez MD Unavailable [phone] Estephania Sharif PharmD Unavailable Christine Edgar Tolentino MD Primary Care Provider [phone] Source Comments This information has been disclosed [...] release of HIV test results or diagnoses. [id number] Encounter Details Date Type Department Care Team (Latest Contact Info) Description 12/18/2023 Travel Social History Tobacco Use Types Packs/Day Years Used Date Smoking Tobacco: Never Smokeless Tobacco: Never Alcohol Use Standard Drinks/Week Comments Never 0 (1 standard drink = 0.6 oz pur e alcohol) Utilities Answer Date Recorded In the past 12 months has [employer] e electric, gas, oil, or water company [...] place to sleep or slept in a detention (including now)? No 11/05/2023 Sex and Gender Information Value Date Recorded Sex Assigned at Not on file Legal Sex Male 11:05 AM EDT Gender Identity Not on file Sexual Orientation Not on file documented as of this encounter Plan of Treatment Upcoming Encounters Date Type Department Care Team (Late st Contact Info) Description 07/15/2024 9:00 AM EST Hospital Encounter [facility] Interventional Radiology [address] [place] [address] Herve Carrillo MD [address] Surgery [place] [phone] documented as of this encounter Visit Diagnoses Not on filedocumented in this encounter Additional Health Concerns Assessment Noted Time PHQ-9 Depression Total Score: 0 12/06/19 18 3:00 PM EDT documented as of this encounter Care Teams Product Management Manager Relationship Specialty Start Date End Date Edgar Fournier MD [address] [place] [address] [place] [address] PCP - General 12/22/21 Maile Valles, JANA Txp Post Coordinator Transplant Hepatology 11/07/17 Jack Ordoñez MD [address] [place] [phone] Consulting Physician Transplant Hepatology 01/05/18 Estephania Sharif, DarrianD Pharmacist Pharmacist 11/11/19 documented as of this encounter
--- OUTSIDE RECORDS SUMMARY | 2024-07-12 12:24 | XMS_ITS | Encounter Summary ---
Author Organization [facility] Address [address] [place] [address] Care Team Providers Care Assembler Fitter Name Role Phone Maile Valles RN Unavailable Unavail able Jack Ordoñez MD Unavailable Estephania Sharif PharmD Unavailable Christine Edgar Tolentino MD Primary Care Provider [phone] Source Comments This information has been disclosed [...] release of HIV test results or diagnoses. [id number] Encounter Details Date Type Department Care Team (Latest Contact Info) Description 01/18/2024 Travel Social History Tobacco Use Types Packs/Day Years Used Date Smoking Tobacco: Never Smokeless Tobacco: Never Alcohol Use Standard Drinks/Week Comments Never 0 (1 standard drink = 0.6 oz pur e alcohol) Utilities Answer Date Recorded In the past 12 months has [employer] e electric, gas, oil, or water company [...] in a mcc (including now)? No 11/05/2023 Sex and Gender Information Value Date Recorded Sex Assigned at Not on file Legal Sex Male 11:05 AM EDT Gender Identity Not on file Sexual Orientation Not on file documented as of this encounter Plan of Treatment Upcoming Encounters Date Type Department Care Team (Late st Contact Info) Description 07/15/2024 9:00 AM EST Hospital Encounter [facility] Interventional Radiology [address] [place] [address] Herve Carrillo MD [address] [place] [phone] documented as of this encounter Visit Diagnoses Not on filedocumented in this encounter Additional Health Concerns Assessment Noted Time PHQ-9 Depression Total Score: 0 12/06/19 18 3:00 PM EDT documented as of this encounter Care Teams Assembler Fitter Relationship Specialty Start Date End Date Edgar Fournier MD [address] [place] [address] [place] [address] PCP - General 12/22/21 Maile Valles, JANA Txp Post Coordinator Transplant Hepatology 11/07/17 Jack Ordoñez MD [address] [place] [phone] Consulting Physician Transplant Hepatology 01/05/18 Estephania Sharif, DarrianD Pharmacist Pharmacist 11/11/19 documented as of this encounter
--- OUTSIDE RECORDS SUMMARY | 2024-07-12 12:24 | XMS_ITS | Encounter Summary ---
Author Organization [facility] Address [address] [place] [address] Care Team Providers Care Associate Professor Of Geography Name Role Phone Maile Valles RN Unavailable Unavail able Jack Ordoñez MD Unavailable [phone] Estephania Sharif PharmD Unavailable Christine Edgar Tolentino MD Primary Care Provider [phone] Source Comments This information has been disclosed [...] release of HIV test results or diagnoses. [id number] Reason for Visit * Reason Comments Appointment Encounter Details Date Type Department Care Team (Late st Contact Info) Description 02/07/2024 Telephone [facility] Vascular Access at [facility] [address] [facility] [address] [place] [address] Marilin Grigsby Appointment Social History Tobacco Use Types Packs/Day Years Used Date Smoking Tobacco: Never Smokeless Tobacco: Never Alcohol Use Standard Drinks/Week Comments Never 0 (1 standard drink = 0.6 oz pur e alcohol) Utilities Answer Date Recorded In the past 12 months has th e [employer], gas, oil, or water company threatened to [...] in a halfway (including now)? No 11/05/2023 Sex and Gender Information Value Date Recorded Sex Assigned at Not on file Legal Sex Male 11:05 AM EDT Gender Identity Not on file Sexual Orientation Not on file documented as of this encounter Progress Notes * Marilin Grigsby - 02/07/2024 3:57 PM EDT Called patient to reschedule appointment on 02/13 ely Brooklynn, due to a family commitment the clinic ischanging to 02/20. Patient was agreeable to new date and time. Future Appointments Date Time Provider Department Center 02/21/2024 11:30 AM Herve Overton MD [facility] 10/21/2024 10:35 AM Jack Ordoñez MD [facility] documented in this encounter Plan of Treatment Upcoming Encounters Date Type Department Care Team (Late st Contact Info) Description 07/15/2024 9:00 AM EST Hospital Encounter [facility] Interventional Radiology [address] [place] [phone] Herve Carrillo MD [address] [facility] [address] [facility] [place] [phone] documented as of this encounter Visit Diagnoses Not on filedocumented in this encounter Additional Health Concerns Assessment Noted Time PHQ-9 Depression Total Score: 0 12/06/19 18 3:00 PM EDT documented as of this encounter Care Teams Associate Professor Of Geography Relationship Specialty Start Date End Date Edgar Fournier MD [address] [place] [address] [place] [address] PCP - General 12/22/21 Maile Valles, RN Txp Post Coordinator Transplant Hepatology 11/07/17 Jack Ordoñez MD [address] [place] [phone] Consulting Physician Transplant Hepatology 01/05/18 Estephania Sharif, PharmD Pharmacist Pharmacist 11/11/19 documented as of this encounter
--- OUTSIDE RECORDS SUMMARY | 2024-07-12 12:24 | XMS_ITS | Encounter Summary ---
Author Organization [facility] Address [address] [place] [address] Care Team Providers Care Welder Operator Name Role Phone Maile Valles RN Unavailable Unavail able Jack Ordoñez MD Unavailable [phone] Estephania Sharif PharmD Unavailable Christine Edgar Tolentino MD Primary Care Provider [phone] Source Comments This information has been disclosed [...] release of HIV test results or diagnoses. [id number] Health Encounter Details Date Type Department Care Team (Late st Contact Info) Description 12/06/2023 Orders Only [facility] Vascular Access at [facility] [address] [facility] [address] [place] [address] Chiquita Ryan, JANA ESRD (end stage renal disease) ([facility]) (Primary Dx); Encounter regarding vascular access for dialysis for end-stage renal disease ([facility]) Social History Tobacco Use Types Packs/Day Years [...] 07/15/2024 9:00 AM EST Hospital Encounter [facility] Interventional Radiology [address] [place] [phone] Herve Carrillo MD [address] [facility] [address] [place] [address] documented as of this encounter Visit Diagnoses Diagnosis ESRD (end stage renal disease) (CMS-HCC)- Primary End stage renal disease Encounter regarding vascular access for dialysis for end-stage renal disease (CMS-HCC) documented in this encounter Additional Health Concerns Assessment Noted Time PHQ-9 Depression Total Score: 0 12/06/19 18 3:00 PM EDT documented as of this encounter Care Teams Welder Operator Relationship Specialty Start Date End Date Edgar Fournier MD [address] [place] [address] [place] [address] PCP - General 12/22/21 Maile Valles, RN Txp Post Coordinator Transplant Hepatology 11/07/17 Jack Ordoñez MD [address] [place] [phone] Consulting Physician Transplant Hepatology 01/05/18 Estephania Sharif, DarrianD Pharmacist Pharmacist 11/11/19 documented as of this encounter
--- OUTSIDE RECORDS SUMMARY | 2024-07-12 12:24 | XMS_ITS | Encounter Summary ---
Author Organization [facility] Address [address] [place] [address] Care Team Providers Care Operations Support Manager Name Role Phone Maile Valles RN Unavailable Unavail able Jack Ordoñez MD Unavailable [phone] Estephania Sharif PharmD Unavailable Christine Edgar Tolentino MD Primary Care Provider [phone] Source Comments This information has been disclosed [...] release of HIV test results or diagnoses. [id number] Encounter Details Date Type Department Care Team (Latest Contact Info) Description 01/03/2024 Travel Social History Tobacco Use Types Packs/Day [...] 9:00 AM EST Hospital Encounter [facility] Interventional Radiology [address] [place] [address] Herve Carrillo MD [address] [facility] [place] [phone] documented as of this encounter Visit Diagnoses Not on filedocumented in this encounter Additional Health Concerns Assessment Noted Time PHQ-9 Depression Total Score: 0 12/06/19 18 3:00 PM EDT documented as of this encounter Care Teams Operations Support Manager Relationship Specialty Start Date End Date Edgar Fournier MD [address] [place] [address] [place] [address] PCP - General 12/22/21 Maile Valles, JANA Txp Post Coordinator Transplant Hepatology 11/07/17 Jack Ordoñez MD [address] [place] [phone] Consulting Physician Transplant Hepatology 01/05/18 Estephania Sharif, DarrianD Pharmacist Pharmacist 11/11/19 documented as of this encounter
--- OUTSIDE RECORDS SUMMARY | 2024-07-12 12:24 | XMS_ITS | Encounter Summary ---
Author Organization [facility] Address [address] [place] [address] Care Team Providers Care Assistant Unit Forester Name Role Phone Maile Valles RN Unavailable Unavail able Jack Ordoñez MD Unavailable [phone] Estephania Sharif PharmD Unavailable Christine Edgar Tolentino MD Primary Care Provider [phone] Source Comments This information has been disclosed [...] release of HIV test results or diagnoses. [id number] Reason for Visit * Reason Comments Appointment Encounter Details Date Type Department Care Team (Late st Contact Info) Description 12/26/[address] [facility] Vascular Access at [facility] [address] [facility] [address] [place] [address] Randal Wright Appointment Social History Tobacco Use Types Packs/Day Years Used Date Smoking Tobacco: Never Smokeless Tobacco: Never Alcohol Use Standard Drinks/Week Comments Never 0 (1 standard drink = 0.6 oz pur e alcohol) Utilities Answer Date Recorded In the past 12 months has th e [employer], gas, oil, or water company threatened to [...] encounter Progress Notes * Randal Wright - 12/26/2023 11:21 AM EDT Call placed to patient to inform him provider would like him to get US vein mapping and CT to assess central veins. Pt requested I call and schedule. Would like Mon or Mon after 10am. Stated I will call and schedule and appts will be updated on his mychart. No further questions. Scheduling states they could not schedule both together d/t insurance. Future Appointments Date Time Provider Department Center 01/03/2024 11:00 AM [facility] VASC [facility] 01/24/2024 12:[address] [facility] 10/21/2024 10:35 AM Jack Ordoñez MD [facility] documented in this encounter Plan of Treatment Upcoming Encounters Date Type Department Care Team (Late st Contact Info) Description 07/15/2024 9:00 AM EST Hospital Encounter [facility] Interventional Radiology [address] [place] [phone] Herve Carrillo MD [address] [facility] [address] [facility] [place] [phone] documented as of this encounter Visit Diagnoses Not on filedocumented in this encounter Additional Health Concerns Assessment Noted Time PHQ-9 Depression Total Score: 0 12/06/19 18 3:00 PM EDT documented as of this encounter Care Teams Assistant Unit Forester Relationship Specialty Start Date End Date Edgar Fournier MD [address] [place] [address] [place] [address] PCP - General 12/22/21 Maile Valles, JANA Txp Post Coordinator Transplant Hepatology 11/07/17 Jack Ordoñez MD [address] [place] [phone] Consulting Physician Transplant Hepatology 01/05/18 Estephania Sharif, PharmD Pharmacist Pharmacist 11/11/19 documented as of this encounter
--- OUTSIDE RECORDS SUMMARY | 2024-07-12 12:24 | XMS_ITS | Encounter Summary ---
Author Organization [facility] Address [address] [place] [address] Care Team Providers Care Barrel Bander Name Role Phone Maile Valles RN Unavailable Unavail able Jack Ordoñez MD Unavailable [phone] Estephania Sharif PharmD Unavailable Christine Edgar Tolentino MD Primary Care Provider [phone] Source Comments This information has been disclosed [...] release of HIV test results or diagnoses. [id number] Reason for Referral * Imaging/Cardiovascular Scan (Routine) - Closed Specialty Diagnoses / Procedures Referred By Contac t Referred To Contact Radiology Diagnoses Encounter regarding vascular access for dialysis for end-stage renal disease ([facility]) Procedures CT Chest With IV contrast Maru Camp CNP [address] [facility] [address] [facility] [place] [address] Phone: tel: fax: Referral ID Status Reason Start Date Expiration Date Visits Re quested Visits Authorized [id number] Closed 12/18/2023 06/15/2024 1 1 * Imaging/Cardiovascular Scan (Routine) - Closed Specialty Diagnoses / Procedures Referred By Declan hines Referred To Contact Vascular Diagnoses Encounter regarding vascular access for dialysis for end-stage renal disease ([facility]) Procedures Vein Mapping UE Bilat Maru Camp CNP [facility] [address] [facility] [place] [address] Phone: tel: fax: Referral ID Status Reason Start Date Expiration Date Visits Re quested Visits Authorized [id number] Closed 12/18/2023 06/15/2024 1 1 Encounter Details Date Type Department Care Team (Late st Contact Info) Description 12/18/2023 Orders Only [facility] at [facility] [address] [facility] [address] [place] [address] Maru Camp CNP [facility] [address] [place] [address] Encounter regarding vascular access for dialysis for end-stage renal disease ([facility]) (Primary Dx) Social History Tobacco Use Types Packs/Day Years Used Date Smoking Tobacco: Never Smokeless Tobacco: Never Alcohol Use Standard Drinks/Week Comments Never 0 (1 standard drink = 0.6 oz pur e alcohol) Utilities Answer Date Recorded In the past 12 months has [employer] gas, oil, or water [employer] threatened to shut off services in your [...] Description 07/15/2024 9:00 AM EST Hospital Encounter [facility] Interventional Radiology [address] [place] [phone] Herve Carrillo MD [facility] [facility] [address] [facility] [place] [address] documented as of this encounter Results * CT Chest With IV contrast (01/24/2024 12:19 PM EDT) Anatomical Region Laterality Modality Chest Computed Tomogra phy 01/24/2024 11:4 2 AM EDT Impressions 01/24/2024 2:19 PM EDT IMPRESSION: No significant central venous occlusion. Aortic valve is mildly calcified and may be functionally bicuspid. Correlate with echocardiogram. Report Verified by: Jack Patel MD at 01/24/2024 2:19 PM EDT Narrative 01/24/2024 2:19 PM EDT EXAM: CT CHEST WITH IV CONTRAST INDICATION: SVC protocol . Hemodialysis vascular access planning TECHNIQUE: CT angiogram of the upper chest was performed using delayed venous phase images as per the standard departmental SVC protocol. ?? CONTRAST: 75 mL of IOHEXOL 350 MG IODINE/ML INTRAVENOUS SOLUTION administered intravenously COMPARISON: 10/20/2017 FINDINGS: SVC: Patent Left subclavian vein: Patent Left internal jugular vein: Patent Left brachiocephalic vein: Patent Right subclavian vein: Asymmetrically small caliber but patent. Right internal jugular vein: Asymmetrically small caliber but patent. Right brachiocephalic vein: Asymmetrically small caliber but patent. Azygous vein: Patent Venous collaterals: None Additional findings: Left IJ catheter extends to the upper right atrium. CardioMEMS device noted in the left interlobar pulmonary artery. Coronary artery calcifications are present. Aortic valve is mildly calcified, specifically with linear calcification along the expected location of the left/non coronary commissure. Partially imaged fat containing hiatal hernia. Procedure Note Jack Patel MD - 01/24/2024 EXAM: CT CHEST WITH IV CONTRAST INDICATION: SVC protocol . Hemodialysis vascular access planning TECHNIQUE: CT angiogram of the upper chest was performed using delayedvenous phase images as per the standard departmental SVC protocol. CONTRAST: 75 mL of IOHEXOL 350 MG IODINE/ML INTRAVENOUS SOLUTIONadministered intravenously COMPARISON: 10/20/2017 FINDINGS: SVC: Patent Left subclavian vein: Patent Left internal jugular vein: Patent Left brachiocephalic vein: Patent Right subclavian vein: Asymmetrically small caliber but patent. Right internal jugular vein: Asymmetrically small caliber but patent. Right brachiocephalic vein: Asymmetrically small caliber but patent. Azygous vein: Patent Venous collaterals: None Additional findings: Left IJ catheter extends to the upper right atrium.CardioMEMS device noted in the left interlobar pulmonary artery. Coronaryartery calcifications are present. Aortic valve is mildly calcified,specifically with linear calcification along the expected location of theleft/non coronary commissure. Partially imaged fat containing hiatalhernia. IMPRESSION: No significant central venous occlusion. Aortic valve is mildly calcified and may be functionally bicuspid.Correlate with echocardiogram. Report Verified by: Jack Patel MD at 01/24/2024 2:19 PM EDT us Maru Camp ELECTRICAL LINEWORKER IMG CT ORDERABLES Final Result * Vein Mapping UE Bilat (01/03/2024 12:32 PM EDT) Anatomical Region Laterality Modality Vascular Ultrasound 01/03/2024 2:04 PM EDT Narrative 01/03/2024 2:04 PM EDT Right: The IJV and subclavian veins are patent with normal hemodynamics.The axillary vein measures 1.17 cm in AP diameter. ??There is no evidence of disease.The cranial upper arm basilic vein measures 0.47 cm in AP diameter.The mid upper arm basilic vein measures 0.4 cm in AP diameter.The basilic vein at the antecubital fossa measures 0.28 cm in AP diameter.The basilic vein 4 cm caudal to antecubital fossa measures 0.31 cm in AP diameter.The cephalic vein at the cranial upper arm measures 0.39 cm in AP diameter, and is 2.47 cm in depth from skin line.The cephalic vein at the mid upper arm measures 0.5 cm in AP diameter, and is 1.63 cm in depth from skin line.The cephalic vein at the antecubital fossa ??measures 0.25 cm in AP diameter, and is 0.59 cm in depth from skin line.The cephalic vein at the cranial forearm measures 0.19 cm in AP diameter, and is 0.37 cm in depth from skin line.The cephalic vein at the mid forearm measures 0.2 cm in AP diameter, and is 0.36 cm in depth from skin line.The cephalic vein 2 cm cranial to the wrist measures 0.12 cm in AP diameter.The brachial artery bifurcates in its normal anatomical location. The brachial artery has an AP diameter of 0.48 cm, with a PSV of 84.5 cm/sec. The radial artery 2 cm cranial to the wrist has an AP diameter of 0.21 cm, with a PSV of 62.7cm/sec. ??No gross plaque noted in the brachial or radial arteries. Left: The IJV and subclavian veins are patent with normal hemodynamics.The axillary vein measures 0.78 cm in AP diameter. ??There is no evidence of disease.The cranial upper arm basilic vein measures 0.64 cm in AP diameter.The mid upper arm basilic vein measures 0.53 cm in AP diameter.The basilic vein at the antecubital fossa measures 0.34 cm in AP diameter.The basilic vein 4 cm caudal to antecubital fossa measures 0.36 cm in AP diameter.The cephalic vein at the cranial upper arm measures 0.4 cm in AP diameter, and is 2.84 cm in depth from skin line.The cephalic vein at the mid upper arm measures 0.18 cm in AP diameter.The remaining cephalic vein is thrombosed from a previously ligated radiocephalic AVF.The brachial artery bifurcates in its normal anatomical location. The brachial artery has an AP diameter of 0.59 cm, with a PSV of 99.4 cm/sec. The radial artery 2 cm cranial to the wrist has an AP diameter of 0.51 cm, with a PSV of 24.2 cm/sec. ??No gross plaque noted in the brachial or radial arteries. Conclusions: The bilateral basilic veins are of adequate caliber and appear thrombus free from origin to 4cm caudal antecubital fossa.The right cephalic vein is of adequate caliber and appears thrombus free from cranial upper arm to mid forearm.The left cephalic vein does not meet criteria due to thrombus. ??The bilateral IJV and subclavian veins were noted to be patent with normal hemodynamics. ??The bilateral brachial and right radial arteries and hemodynamics are normal. Procedure: Evaluation of the upper extremity veins and arteries was performed to assess potential A-V access sites. Procedure Note Suhail Collins MD - 01/03/2024 Right: The IJV and subclavian veins are patent with normalhemodynamics.The axillary vein measures 1.17 cm in AP diameter. There isno evidence of disease.The cranial upper arm basilic vein measures 0.47 cmin AP diameter.The mid upper arm basilic vein measures 0.4 cm in APdiameter.The basilic vein at the antecubital fossa measures 0.28 cm in APdiameter.The basilic vein 4 cm caudal to antecubital fossa measures 0.31cm in AP diameter.The cephalic vein at the cranial upper arm measures 0.39cm in AP diameter, and is 2.47 cm in depth from skin line.The cephalicvein at the mid upper arm measures 0.5 cm in AP diameter, and is 1.63 cmin depth from skin line.The cephalic vein at the antecubital fossameasures 0.25 cm in AP diameter, and is 0.59 cm in depth from skinline.The cephalic vein at the cranial forearm measures 0.19 cm in APdiameter, and is 0.37 cm in depth from skin line.The cephalic vein at themid forearm measures 0.2 cm in AP diameter, and is 0.36 cm in depth fromskin line.The cephalic vein 2 cm cranial to the wrist measures 0.12 cm inAP diameter.The brachial artery bifurcates in its normal anatomicallocation. The brachial artery has an AP diameter of 0.48 cm, with a PSV of84.5 cm/sec. The radial artery 2 cm cranial to the wrist has an APdiameter of 0.21 cm, with a PSV of 62.7cm/sec. No gross plaque noted inthe brachial or radial arteries. Left: The IJV and subclavian veins are patent with normal hemodynamics.Theaxillary vein measures 0.78 cm in AP diameter. There is no evidence ofdisease.The cranial upper arm basilic vein measures 0.64 cm in APdiameter.The mid upper arm basilic vein measures 0.53 cm in APdiameter.The basilic vein at the antecubital fossa measures 0.34 cm in APdiameter.The basilic vein 4 cm caudal to antecubital fossa measures 0.36cm in AP diameter.The cephalic vein at the cranial upper arm measures 0.4cm in AP diameter, and is 2.84 cm in depth from skin line.The cephalicvein at the mid upper arm measures 0.18 cm in AP diameter.The remainingcephalic vein is thrombosed from a previously ligated radiocephalicAVF.The brachial artery bifurcates in its normal anatomical location. Thebrachial artery has an AP diameter of 0.59 cm, with a PSV of 99.4 cm/sec.The radial artery 2 cm cranial to the wrist has an AP diameter of 0.51 cm,with a PSV of 24.2 cm/sec. No gross plaque noted in the brachial orradial arteries. Conclusions: The bilateral basilic veins are of adequate caliber andappear thrombus free from origin to 4cm caudal antecubital fossa.The rightcephalic vein is of adequate caliber and appears thrombus free fromcranial upper arm to mid forearm.The left cephalic vein does not meetcriteria due to thrombus. The bilateral IJV and subclavian veins werenoted to be patent with normal hemodynamics. The bilateral brachial andright radial arteries and hemodynamics are normal. Procedure: Evaluation of the upper extremity veins and arteries wasperformed to assess potential A-V access sites. us Maru Camp ELECTRICAL LINEWORKER CV VASCULAR ORDERABLES Final R esult documented in this encounter Visit Diagnoses Diagnosis Encounter regarding vascular access for dialysis for end-stage renal disease (CMS-HCC)- Primary Encounter regarding vascular access for dialysis for end-stage renal disease (CMS-HCC) Encounter regarding vascular access for dialysis for end-stage renal disease (CMS-HCC) documented in this encounter Additional Health Concerns Assessment Noted Time PHQ-9 Depression Total Score: 0 12/06/19 18 3:00 PM EDT documented as of this encounter Care Teams Barrel Bander Relationship Specialty Start Date End Date Edgar Fournier MD [address] [place] [address] [place] [address] PCP - General 12/22/21 Maile Valles, RN Txp Post Coordinator Transplant Hepatology 11/07/17 Jack Ordoñez MD [address] [place] [address] Consulting Physician Transplant Hepatology 01/05/18 Estephania Sharif PharmD Pharmacist Pharmacist 11/11/19 documented as of this encounter
--- OUTSIDE RECORDS SUMMARY | 2024-07-12 12:24 | XMS_ITS | Encounter Summary ---
Author Organization [facility] Address [address] [place] [address] Care Team Providers Care Sales And Service Associate Name Role Phone Malie Valles RN Unavailable Unavail able Jack Ordoñez MD Unavailable [phone] Estephania Sharif PharmD Unavailable Christine Edgar Tolentino MD Primary Care Provider [phone] Source Comments This information has been disclosed [...] release of HIV test results or diagnoses. [id number] Reason for Referral * Imaging/Cardiovascular Scan (Routine) - Closed Specialty Diagnoses / Procedures Referred By Contac t Referred To Contact Vascular Diagnoses Encounter regarding vascular access for dialysis for end-stage renal disease ([facility]) Procedures Vein Mapping Maru Quintanilla, TERMINAL PRESS OPERATOR [address] [facility] [address] [place] [address] Phone: tel: fax: Referral ID Status Reason Start Date Expiration Date Visits Re quested Visits Authorized [id number] Closed 12/18/2023 06/15/2024 1 1 Reason for Visit * Auth/Cert (Routine) Specialty Diagnoses / Procedures Referred By Declan hines Referred To Contact Vascular Imaging [facility] Vascular Ultrasound at [address] [address] Phone: tel: fax: Referral ID Status Reason Start Date Expiration Date Visits Re quested Visits Authorized [id number] 1 1 Encounter Details Date Type Department Care Team (Late st Contact Info) Description 01/03/2024 11:00 AM EDT - 01/03/2024 11:59 PM EDT Hospital Encounter [facility] Vascular Ultrasound at [address] [address] Maru Camp CNP [address] [facility] [address] [place] [address] Encounter regarding vascular access for dialysis for end-stage renal disease ([facility]) Discharge Disposition: Home or Self Care WITHOUT Home Care Services Social History Tobacco Use Types Packs/Day Years Used Date Smoking Tobacco: Never Smokeless Tobacco: Never Alcohol Use Standard Drinks/Week Comments Never 0 (1 standard drink = 0.6 oz pur e alcohol) Utilities Answer Date Recorded In the past 12 months has [employer], or water [employer] threatened to shut off services in your [...] place to sleep or slept in a fpc (including now)? No 11/05/2023 Sex and Gender [...] [facility] Interventional Radiology [address] [place] [phone] Herve Carrillo MD [address] [facility] [address] [place] [phone] documented as of this encounter Procedures Procedure Name Priority Date/Time Associated Diagnosis Comments VASCI VEIN MAPPING UE BILATERAL FOR PRE AV ACCESS Routine 01/03/2024 12:32 PM EDT Encounter regarding vascular access for dialysis for end-stage renal disease ([facility]) documented in this encounter Results * Vein Mapping UE Bilat (01/03/2024 12:32 [...] wasperformed to assess potential A-V access sites. Maru Camp CNP CV VASCULAR ORDERABLES Final R esult documented in this encounter Visit Diagnoses Diagnosis Encounter regarding vascular access for dialysis for end-stage renal disease ([facility]) documented in this encounter Additional Health Concerns Assessment Noted Time PHQ-9 Depression Total Score: 0 12/06/19 18 3:00 PM EDT documented as of this encounter Care Teams Sales And Service Associate Relationship Specialty Start Date End Date Edgar Fournier MD [address] [place] [address] [place] [address] PCP - General 12/22/21 Maile Valles, RN Txp Post Coordinator Transplant Hepatology 11/07/17 Jack Ordoñez MD [address] [place] [address] Consulting Physician Transplant Hepatology 01/05/18 Estephania Sharif, DarrianD Pharmacist Pharmacist 11/11/19 documented as of this encounter
--- OUTSIDE RECORDS SUMMARY | 2024-07-12 12:24 | XMS_ITS | Encounter Summary ---
Author Organization [facility] Address [address] [place] [address] Care Team Providers Care District Plant Supervisor Name Role Phone Maile Valles RN Unavailable Unavail able Jack Ordoñez MD Unavailable [phone] Estephania Sharif PharmD Unavailable Christine Edgar Tolentino MD Primary Care Provider [phone] Source Comments This information has been disclosed [...] release of HIV test results or diagnoses. [id number] Health Encounter Details Date Type Department Care Team (Late st Contact Info) Description 12/20/2023 Telephone [facility] Transplant Hepatobiliary at [place] [address] [facility] [address] [place] [address] Nathalie Murphy MA Social History Tobacco Use Types Packs/Day [...] place to sleep or slept in a [place] facility (including now)? No 11/05/2023 Sex and Gender Information Value Date Recorded Sex Assigned at Not on file Legal Sex Male 11:05 AM EDT Gender Identity Not on file Sexual Orientation Not on file documented as of this encounter Miscellaneous Notes * Telephone Encounter - Nathalie Murphy MA - 12/20/2023 2:08 PM EDT Pt interested in robotic kidney transplantation at [facility]. Per Dr. Montalvo, a referral has been placed. Call pt to let him know that the referral has been placed and that [facility] will be reaching out to him. Pt told me that they have already reached out. Pt has no question/concerns. documented in this encounter Plan of Treatment Upcoming Encounters Date Type Department Care Team (Late st Contact Info) Description 07/15/2024 9:00 AM EST Hospital Encounter [facility] Interventional Radiology [address] [place] [phone] Herve Carrillo MD [address] [facility] [address] [place] [address] documented as of this encounter Visit Diagnoses Not on filedocumented in this encounter Additional Health Concerns Assessment Noted Time PHQ-9 Depression Total Score: 0 12/06/19 18 3:00 PM EDT documented as of this encounter Care Teams District Plant Supervisor Relationship Specialty Start Date End Date Edgar Fournier MD [address] [place] [address] [place] [address] PCP - General 12/22/21 Maile Valles, RN Txp Post Coordinator Transplant Hepatology 11/07/17 Jack Ordoñez MD [address] [place] [phone] Consulting Physician Transplant Hepatology 01/05/18 Estephania Sharif, DarrianD Pharmacist Pharmacist 11/11/19 documented as of this encounter
--- OUTSIDE RECORDS SUMMARY | 2024-07-12 12:24 | XMS_ITS | Encounter Summary ---
Author Organization [facility] Address [address] [place] [address] Care Team Providers Care Production Service Manager Name Role Phone Maile Valles RN Unavailable Unavail able Jack Ordoñez MD Unavailable Estephania Sharif PharmD Unavailable Christine Edgar Tolentino MD Primary Care Provider [phone] Source Comments This information has been disclosed [...] release of HIV test results or diagnoses. [id number] Encounter Details Date Type Department Care Team (Latest Contact Info) Description 01/24/2024 Travel Social History Tobacco Use Types Packs/Day Years Used Date Smoking Tobacco: Never Smokeless Tobacco: Never Alcohol Use Standard Drinks/Week Comments Never 0 (1 standard drink = 0.6 oz pur e alcohol) Utilities Answer Date Recorded In the past 12 months has [employer], gas, oil, or water company [...] place to sleep or slept in a custodial (including now)? No 11/05/2023 Sex and Gender Information Value Date Recorded Sex Assigned at Not on file Legal Sex Male 11:05 AM EDT Gender Identity Not on file Sexual Orientation Not on file documented as of this encounter Plan of Treatment Upcoming Encounters Date Type Department Care Team (Late st Contact Info) Description 07/15/2024 9:00 AM EST Hospital Encounter [facility] Interventional Radiology [address] [place] [address] Herve Carrillo MD [address] [place] [phone] documented as of this encounter Visit Diagnoses Not on filedocumented in this encounter Additional Health Concerns Assessment Noted Time PHQ-9 Depression Total Score: 0 12/06/19 18 3:00 PM EDT documented as of this encounter Care Teams Production Service Manager Relationship Specialty Start Date End Date Edgar Fournier MD [address] [place] [address] [place] [address] PCP - General 12/22/21 Maile Valles, JANA Txp Post Coordinator Transplant Hepatology 11/07/17 Jack Ordoñez MD [address] [place] [phone] Consulting Physician Transplant Hepatology 01/05/18 Estephania Sharif, DarrianD Pharmacist Pharmacist 11/11/19 documented as of this encounter
--- OUTSIDE RECORDS SUMMARY | 2024-07-12 12:24 | XMS_ITS | Encounter Summary ---
Author Organization [facility] Address [address] [place] [address] Care Team Providers Care Vocational Case Manager Name Role Phone Maile Valles RN Unavailable Unavail able Jack Ordoñez MD Unavailable [phone] Estephania Sharif PharmD Unavailable Christine Edgar Tolentino MD Primary Care Provider [phone] Source Comments This information has been disclosed [...] release of HIV test results or diagnoses. [id number] Reason for Referral * Imaging/Cardiovascular Scan (Routine) - Closed Specialty Diagnoses / Procedures Referred By Contac t Referred To Contact Radiology Diagnoses Encounter regarding vascular access for dialysis for end-stage renal disease ([facility]) Procedures CT Chest With IV contrast Maru Camp CNP [address] [facility] [address] [place] [address] Phone: tel: fax: Referral ID Status Reason Start Date Expiration Date Visits Re quested Visits Authorized [id number] Closed 12/18/2023 06/15/2024 1 1 Reason for Visit * Auth/Cert (Routine) Specialty Diagnoses / Procedures Referred By Declan t Referred To Contact Radiology [facility] [address] [place] [address] Phone: tel: Referral ID Status Reason Start Date Expiration Date Visits Re quested Visits Authorized [id number] 1 1 Encounter Details Date Type Department Care Team (Late st Contact Info) Description 01/24/2024 11:27 AM EDT - 01/24/2024 11:59 PM EDT Hospital Encounter [facility] [address] [place] [address] Maru Camp CNP [address] [facility] [address] [place] [address] Encounter regarding vascular access for dialysis for end-stage renal disease ([facility]) Discharge Disposition: Home or Self Care WITHOUT Home Care Services Social History Tobacco Use Types Packs/Day Years Used Date Smoking Tobacco: Never Smokeless Tobacco: Never Alcohol Use Standard Drinks/Week Comments Never 0 (1 standard drink = 0.6 oz pur e alcohol) Utilities Answer Date Recorded In the past 12 months has [employer], [employer], oil, or water [employer] threatened to shut off services in your [...] the money to buy more. Never true 03/24/20 24 Within the past 12 months, t [...] in a jail (including now)? No 11/05/2023 Sex and Gender [...] capsule 1 05/28/2024 2:50 PM EDT 4 NIFEdipine (PROCARDIA-XL) 90 MG [...] meals. Dose based on sliding scale 04/28/20 ondansetron (ZOFRAN-ODT) 4 MG disintegrating tablet Take 1 tablet (4 mg total) by mouth every 8 hours as needed. 8 04/28/20 proMETHazine (PHENERGAN) 25 MG tablet Take 1 tablet (25 mg total) by mouth if needed. 04/17/20 VASCEPA 1 gram Cap TAKE 2 Capsule by mouth twice daily 2 01/25/20 24 documented as of this encounter Plan of Treatment Upcoming Encounters Date Type Department Care Team (Late st Contact Info) Description 07/15/2024 9:00 AM EST Hospital Encounter [facility] Interventional Radiology [address] [place] [address] Herve Carrillo MD [address] [facility] [address] [place] [address] documented as of this encounter Procedures Procedure Name Priority Date/Time Associated Diagnosis Comments CT CHEST WITH IV CONTRAST Routine 01/24/2024 12:19 PM EDT Encounter regarding vascular access for dialysis for end-stage renal disease ([facility]) documented in this encounter Results * CT Chest With [...] fat containing hiatal hernia. Procedure Note Jack Patle MD - 01/24/2024 EXAM: CT CHEST WITH [...] Patel MD at 01/24/2024 2:19 PM EDT Maru Camp ANESTHESIOLOGIST ASSISTANT CERTIFIED IMG CT ORDERABLES Final Result documented in this encounter Visit Diagnoses Diagnosis Encounter regarding vascular access for dialysis for end-stage renal disease ([facility]) documented in this encounter Administered Medications Inactive Administered Medications - up to 3 most recent administrations Medication Order MAR Action Action Date Dose Rate Site OMNIPAQUE (iohexol) 350 mg iodine/mL 150 mL 150 mL, Intravenous, IMG once as needed, contrast, Starting on Mon01/24/24 at 1212, For 1 dose Given 01/24/2024 12:19 PM EDT 75 mLs documented in this encounter Additional Health Concerns Assessment Noted Time PHQ-9 Depression Total Score: 0 12/06/19 18 3:00 PM EDT documented as of this encounter Care Teams Vocational Case Manager Relationship Specialty Start Date End Date Edgar Fournier MD [address] [place] [address] PCP - General 12/22/21 Maile Valles, JANA Txp Post Coordinator Transplant Hepatology 11/07/17 Jack Ordoñez MD [address] [place] [address] Consulting Physician Transplant Hepatology 01/05/18 Estephania Sharif, DarrianD Pharmacist Pharmacist 11/11/19 documented as of this encounter
--- OUTSIDE RECORDS SUMMARY | 2024-07-12 12:24 | XMS_ITS | Encounter Summary ---
Author Organization Address [facility] [place] [address] Care Team Providers Care Solid Waste Management Engineer Name Role Phone Maile Valles RN Unavailable Unavail able Jack Ordoñez MD Unavailable [phone] Estephania Sharif PharmD Unavailable Christine Edgar Tolentino MD Primary Care Provider [phone] Source Comments This information has been disclosed [...] release of HIV test results or diagnoses. [id number] Reason for Visit * Reason Comments Appointment SCHEDULED Encounter Details Date Type Department Care Team (Late st Contact Info) Description 12/08/2023 Telephone [facility] Interventional Radiology [facility] [place] [address] Sravanthi Barraza Appointment (SCHEDULED ) Social History Tobacco Use Types Packs/Day Years Used Date Smoking Tobacco: Never Smokeless Tobacco: Never Alcohol Use Standard Drinks/Week Comments Never 0 (1 standard drink = 0.6 oz pur e alcohol) Utilities Answer Date Recorded In the past 12 months has th e [employer], gas, oil, or water company threatened to [...] Miscellaneous Notes * Telephone Encounter - Sravanthi Omalleypard - 12/08/2023 4:02 PM EDT Bilateral UE venogram scheduled 12/18/2023 @ 1030a at [facility]. Patient instructed to arrive 930a, explained procedure prep. Confirmed with Aiden. documented in this encounter Plan of Treatment Upcoming Encounters Date Type Department Care Team (Late st Contact Info) Description 07/15/2024 9:00 AM EST Hospital Encounter [facility] Interventional Radiology [address] [place] [phone] Herve Carrillo MD [address] [facility] [address] [facility] [place] [phone] documented as of this encounter Visit Diagnoses Not on filedocumented in this encounter Additional Health Concerns Assessment Noted Time PHQ-9 Depression Total Score: 0 12/06/19 18 3:00 PM EDT documented as of this encounter Care Teams Solid Waste Management Engineer Relationship Specialty Start Date End Date Edgar Fournier MD [address] [place] [address] [place] [address] PCP - General 12/22/21 Maile Valles, JANA Txp Post Coordinator Transplant Hepatology 11/07/17 Jack Ordoñez MD [address] [place] [phone] Consulting Physician Transplant Hepatology 01/05/18 Estephania Sharif, DarrianD Pharmacist Pharmacist 11/11/19 documented as of this encounter
--- OUTSIDE RECORDS SUMMARY | 2024-07-12 12:24 | XMS_ITS | Encounter Summary ---
Author Organization [facility] Address [address] [place] [address] Care Team Providers Care Jet Engine Mechanic Name Role Phone Maile Valles RN Unavailable Unavail able Jack Ordoñez MD Unavailable [phone] Estephania Sharif PharmD Unavailable Christine Edgar Tolentino MD Primary Care Provider [phone] Source Comments This information has been disclosed [...] release of HIV test results or diagnoses. [id number] Reason for Visit * Reason Comments Appointment Encounter Details Date Type Department Care Team (Late st Contact Info) Description 12/06/2023 Telephone [facility] Vascular Access at [place] [id number] [facility] [address] [place] [address] Chiquita Ryan, JANA Appointment Social History Tobacco Use Types Packs/Day Years Used Date Smoking Tobacco: Never Smokeless Tobacco: Never Alcohol Use Standard Drinks/Week Comments Never 0 (1 standard drink = 0.6 oz pur e alcohol) Utilities Answer Date Recorded In the past 12 months has th e [employer], gas, oil, or water company threatened to [...] encounter Miscellaneous Notes * Telephone Encounter - Chiquita Ryan RN - 12/06/2023 3:30 PM EDT Received message that patient needed to see our office for vascular access issues. Called patient to find out what patient needed to be seen for. Patient states he is a dialysis patient who recently had his left arm fistula ligated at his local hospital d/t issues with swelling. Patient now needs new access and would prefer to have this completed at since this is where he receives most of his care. Patient has not had recent imaging and is again requesting this to be completed at . Informed patient that I would place order to have bilat venograms completed in IR. Told patient that IR will reach out to schedule patient. Patient currently does dialysis 4 days a week TWFS and suggested that if possible patient should see if testing can be completed on a morning and we could seehim in clinic after so he would not need to make two trips up here. Patient also expressed concernsregarding aneurysms near ligated fistula. He states that he has two bumps that are soft and become shiney after he has been outside in the sun. Requested patient to send image thru secure EMR. Infor med patient that once reviewed by provider I would let him know if he needs to be seen for these aneurysms prior to his initial consult. Patient verbalized understanding. No other questions at this time. documented in this encounter Plan of Treatment Upcoming Encounters Date Type Department Care Team (Late st Contact Info) Description 07/15/2024 9:00 AM [facility] Hospital Encounter [facility] Interventional Radiology [address] [place] [phone] Herve Carrillo MD [address] [facility] [address] [facility] [place] [phone] documented as of this encounter Visit Diagnoses Not on filedocumented in this encounter Additional Health Concerns Assessment Noted Time PHQ-9 Depression Total Score: 0 12/06/19 18 3:00 PM EDT documented as of this encounter Care Teams Jet Engine Mechanic Relationship Specialty Start Date End Date Edgar Fournier MD [address] [place] [address] [place] [address] PCP - General 12/22/21 Maile Valles, RN Txp Post Coordinator Transplant Hepatology 11/07/17 Jack Ordoñez MD [facility] [place] [address] Consulting Physician Transplant Hepatology 01/05/18 Estephania Sharif, PharmD Pharmacist Pharmacist 11/11/19 documented as of this encounter
--- OUTSIDE RECORDS SUMMARY | 2024-07-12 12:25 | XMS_ITS | Encounter Summary ---
Author Organization [facility] Address [address] [place] [address] Care Team Providers Care Dump Operator Name Role Phone Maile Valles RN Unavailable Unavail able Jack Ordoñez MD Unavailable [phone] Estephania Sharif PharmD Unavailable Christine Edgar Tolentino MD Primary Care Provider [phone] Source Comments This information has been disclosed [...] release of HIV test results or diagnoses. [id number] Reason for Visit * Reason Comments Medication Refill Encounter Details Date Type Department Care Team (Late st Contact Info) Description 11/22/2023 Refill [facility] Internal Medicine at [address] [place] [address] Earnest Yeung DO Social History Tobacco Use Types Packs/Day Years [...] 9:00 AM EST Hospital Encounter [facility] Interventional Radiology [address] [place] [address] Herve Carrillo MD [address] [facility] [address] [place] [address] documented as of this encounter Visit Diagnoses Not on filedocumented in this encounter Additional Health Concerns Assessment Noted Time PHQ-9 Depression Total Score: 0 12/06/19 18 3:00 PM EDT documented as of this encounter Care Teams Dump Operator Relationship Specialty Start Date End Date Edgar Fournier MD [address] [place] [address] [place] [address] PCP - General 12/22/21 Maile Valles, RN Txp Post Coordinator Transplant Hepatology 11/07/17 Jack Ordoñez MD [address] [place] [phone] Consulting Physician Transplant Hepatology 01/05/18 Estephania Sharif, DarrianD Pharmacist Pharmacist 11/11/19 documented as of this encounter
--- OUTSIDE RECORDS SUMMARY | 2024-07-12 12:25 | XMS_ITS | Encounter Summary ---
Author Organization [facility] Address [address] [place] [address] Care Team Providers Care Station Tender Name Role Phone Maile Valles RN Unavailable Unavail able Jack Ordoñez MD Unavailable Estephania Sharif PharmD Unavailable Christine Edgar Tolentino MD Primary Care Provider [phone] Source Comments This information has been disclosed [...] release of HIV test results or diagnoses. [id number] Encounter Details Date Type Department Care Team (Latest Contact Info) Description 11/04/2023 Travel Social History Tobacco Use Types Packs/Day Years Used Date Smoking Tobacco: Never Smokeless Tobacco: Never Alcohol Use Standard Drinks/Week Comments Never 0 (1 standard drink = 0.6 oz pur e alcohol) Utilities Answer Date Recorded In the past 12 months has [email or web address], gas, oil, or water company [...] [facility] Inter[facility] Radiology [address] [place] [address] Herve Carrillo MD [address] [place] [phone] documented as of this encounter Visit Diagnoses Not on filedocumented in this encounter Additional Health Concerns Assessment Noted Time PHQ-9 Depression Total Score: 0 12/06/19 18 3:00 PM EDT documented as of this encounter Care Teams Station Tender Relationship Specialty Start Date End Date Edgar Fournier MD [address] [place] [address] [place] [address] PCP - General 12/22/21 Maile Valles, JANA Txp Post Coordinator Transplant Hepatology 11/07/17 Jack Ordoñez MD [address] [place] [phone] Consulting Physician Transplant Hepatology 01/05/18 Estephania Sharif, DarrianD Pharmacist Pharmacist 11/11/19 documented as of this encounter
--- OUTSIDE RECORDS SUMMARY | 2024-07-12 12:25 | XMS_ITS | Encounter Summary ---
Author Organization [facility] Address [address] [place] [address] Care Team Providers Care Corner Bead Operator Name Role Phone Maile Valles RN Unavailable Unavail able Jack Ordoñez MD Unavailable [phone] Estephania Sharif PharmD Unavailable Christine Edgar Tolentino MD Primary Care Provider [phone] Source Comments This information has been disclosed [...] release of HIV test results or diagnoses. [id number] Reason for Visit * Reason Comments Liver Transplant Follow-up Encounter Details Date Type Department Care Team (Late st Contact Info) Description 10/23/2023 10:15 AM EDT Office Visit [facility] at [facility] [address] [facility] [address] [place] [address] Jack Ordoñez MD [address] [facility] [place] [address] Liver transplanted ([facility]) (Primary Dx); Immunosuppression for liver transplant ([facility] Dx) Social History Tobacco Use Types Packs/Day Years Used Date Smoking Tobacco: Never Smokeless Tobacco: Never Alcohol Use Standard Drinks/Week Comments Never 0 (1 standard drink = 0.6 oz pur e alcohol) AUDIT-C Answer Date Recorded Q1: How often do you have a drink containing alcohol? Never 05/02/2022 Q2: How many drinks containi ng alcohol do you have on a typical day when you are drinking? Patient does not drink Q3: How often do you have si x or more drinks on one occasion? Never 05/02/2022 PHQ-2 Answer Date Recorded PHQ-2 Total Score 0 04/07/2022 Sex and Gender Information Value Date Recorded Sex Assigned at Not on file Legal Sex Male 11:05 AM EDT Gender Identity Not on file Sexual Orientation Not on file documented as of this encounter Last Filed Vital Signs Vital Sign Reading Time Taken Comments Blood Pressure 148/80 10/23/2023 10:14 AM EDT Pulse 90 10/23/2023 10:14 AM EDT Temperature 36.7 ??C (98.1 ??F) 10/23/2023 10:14 AM E DT Respiratory Rate 20 10/23/2023 10:14 AM EDT Oxygen Saturation 93% 10/23/2023 10:14 AM EDT Inhaled Oxygen Concentration 93% 10/23/2023 1 0:14 AM EDT Weight 139 kg (306 lb 6.4 oz) 10/23/2023 10:14 A M EDT Height 175.3 cm (5' 9 ) 10/23/2023 10:14 AM EDT Body Mass Index 45.25 10/23/2023 10:14 AM EDT documented in this encounter Patient Instructions * Patient Instructions* Jack Ordoñez MD - 10/23/2023 10:15 AM EDT Plan: 1. Continue cyclosporine 100 mg twice daily. 2. Continue Cellcept 250 mg twice daily 3. Would check labs every 3 months including: CBC, renal, hepatic profile, and cyclosporine trough. 4. Would recommend annual visit to Dermatology for skin cancer surveillance. 5. Please use SPF 30 or higher sunscreen, hat, long-sleeves and sunglasses while in the sun. 6. Please continue age appropriate cancer screening including: colonoscopy, prostate exam. 7. Will check HgA1C, Vit D, Lipid profile, and urine protein / Cr ratio on annual basis with your PCP. 8. Continue kidney evaluation. 9. Continue Entecavir daily for HBcAb+ liver. Entecavir 0.5 mg weekly. 10. Please re-establish with Bariatric surgery for weight loss. 11. Continue Miralax to twice daily. 12. RTC in 1 year documented in this encounter Progress Notes * Jack Ordoñez MD - 10/23/2023 10:15 AM EDT Subjective: Aiden Stauffer Jr. is a 48 y.o. 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 The patient was last seen in October 2022. He received a [facility] high risk donor, who was HBV ALEXANDRA +, HCV Ab+, ALEXANDRA negative and therefore will be on lifelong entecavir. Post-operative course was complicated by altered mental status and severe tremors thought to be related to tacrolimus toxicity, as well as hypoxia. He received one dose of thymoglobulin . Liver tests are normal on cyclo 100 BID (switched off of several different IS regimens due to patient complaints) and cellcept 250 mg twice daily. His liver tests are normal. He is ESRD on HD. Co- morbidities include hypertension and DM for which he is on insulin. Still struggling with HTN and T2DM. Unable to be listed for renal txp due to weight. Following with cardiology (Dr. Schulte) for heart failure. Saw Dr. Frias in IR to assess his AV graft / fistula. The following portions of the patient's history were reviewed and updated as appropriate: allergies, current medications, past family history, past medical history, past social history, past surgicalhistory and problem list. Comprehensive review of systems performed. See full ROS in EMR. 12 point ROS was performed and negative except as noted above in the HPI. An extensive review of past records including prior office notes, labs, imaging, and pathology reports was performed from the Media tab, Care Everywhere and paper documents. Objective: Physical Exam Nursing note and vitals reviewed. Constitutional: He is oriented to person, place, and time. He appears well- developed. No distress. HENT: Head: Normocephalic and atraumatic. Right Ear: External ear normal. Mouth/Throat: No oropharyngeal exudate. Eyes: Pupils are equal, round, and reactive to light. Conjunctivae are normal. Right eye exhibits no discharge. Left eye exhibits no discharge. No scleral icterus. Neck: No JVD present. No tracheal deviation present. No thyromegaly present. Cardiovascular: Normal rate. Exam reveals no gallop and no friction rub. No murmur heard. Pulmonary/Chest: Effort normal and breath sounds normal. No respiratory distress. He has no wheezes. He has no rales. He exhibits no tenderness. Abdominal: Soft. Bowel sounds are normal. He exhibits no distension. There is no abdominal tenderness. There is no rebound and no guarding. Healed surgical incision Musculoskeletal: General: No tenderness or deformity. Normal range of motion. Cervical back: Normal range of motion and neck supple. Lymphadenopathy: He has no cervical adenopathy. Neurological: He is alert and oriented to person, place, and time. No cranial nerve deficit. Coordination normal. Skin: Skin is warm and dry. No rash noted. He is not diaphoretic. No erythema. No pallor. Psychiatric: His behavior is normal. Judgment and thought content normal. Labs: The patient's recent laboratory results were reviewed. Assessment & Plan: 48 year old male who is s/p OLT in Sep 2017 for SAL cirrhosis. 1) Status post liver transplant due to SAL in Sep 2017: The patient's post transplant course has been complicated by AMS requiring switch to cyclosporine, uncontrolled T2DM, HTN, ESRD on HD. Labs are normal on current IS. Needs to lose weight for renal transplant. Continue cyclosporine 100 mg twice daily. Continue Cellcept 250 mg twice daily Would check labs every 3 months including: CBC, renal,hepatic profile, and cyclosporine trough. Would recommend annual visit to Dermatology for skin cancer surveillance. Please use SPF 30 or higher sunscreen, hat, long-sleeves and sunglasses while in the sun. Please continue age appropriate cancer screening including: colonoscopy, prostate exam. Will check HgA1C, Vit D, Lipid profile, and urine protein / Cr ratio on annual basis with your PCP. Continue kidney evaluation. Continue Entecavir daily for HBcAb+ liver. Entecavir 0.5 mg weekly. Please re-establish with Bariatric surgery for weight loss. Continue Miralax to twice daily. RTC in 1 year Plan: 1. Continue cyclosporine 100 mg twice daily. 2. Continue Cellcept 250 mg twice daily 3. Would check labs every 3 months including: CBC, renal, hepatic profile, and cyclosporine trough. 4. Would recommend annual visit to Dermatology for skin cancer surveillance. 5. Please use SPF 30 or higher sunscreen, hat, long-sleeves and sunglasses while in the sun. 6. Please continue age appropriate cancer screening including: colonoscopy, prostate exam. 7. Will check HgA1C, Vit D, Lipid profile, and urine protein / Cr ratio on annual basis with your PCP. 8. Continue kidney evaluation. 9. Continue Entecavir daily for HBcAb+ liver. Entecavir 0.5 mg weekly. 10. Please re-establish with Bariatric surgery for weight loss. 11. Continue Miralax to twice daily. 12. RTC in 1 year This note was completely edited, written and reviewed by me and consists of information cut and pasted from the my most recent visit, my smart phrases and other Epic tools. I have personally reviewedall aspects of this note to at least include reviewing this patient's chart and problem list, updating the history, physical exam, lab and procedure results, and assessment and plan as detailed aboveand below. As such this visit note reflects my current evaluation and management for this patient. Please see the body of my note for supportive documentation related to the level of service for this complex medical patient. I have reviewed all prior notes including most recent from the patient's PCP and other medical consultants. I have reviewed interval / recent lab work including: CBC, renal,hepatic, INR, viral studies, and all other labs for chronic liver disease relating to their medicalcondition. I have independently reviewed the patients recent radiologic imaging including any CT scans, MRI, ultrasound or endoscopic procedures. I spoke with the RN housekeeper caregiver today in regardsto this patient. Finally, I have reviewed independently any interval liver pathology. Spent over 40minutes on the care of this patient today. documented in this encounter Plan of Treatment Upcoming Encounters Date Type Department Care Team (Late st Contact Info) Description 07/15/2024 9:00 AM EST Hospital Encounter [facility] Inter[facility] Radiology [address] [place] [phone] Herve Carrillo MD [address] [place] [phone] documented as of this encounter Visit Diagnoses Diagnosis Liver transplanted ([facility])- Primary Liver replaced by transplant Immunosuppression for liver transplant ([facility] Dx) documented in this encounter Additional Health Concerns Assessment Noted Time PHQ-9 Depression Total Score: 0 12/06/19 18 3:00 PM EDT documented as of this encounter Care Teams Corner Bead Operator Relationship Specialty Start Date End Date Edgar Fournier MD [address] [place] [address] [place] [address] PCP - General 12/22/21 Maile Valles, JANA Txp Post Coordinator Transplant Hepatology 11/07/17 Jack Ordoñez MD [address] [place] [phone] Consulting Physician Transplant Hepatology 01/05/18 Estephania Sharif, DarrianD Pharmacist Pharmacist 11/11/19 documented as of this encounter
--- OUTSIDE RECORDS SUMMARY | 2024-07-12 12:25 | XMS_ITS | Encounter Summary ---
Author Organization [facility] Address [address] [place] [address] Care Team Providers Care Tucking Machine Operator Name Role Phone Maile Valles RN Unavailable Unavail able Jack Ordoñez MD Unavailable [phone] sEtephania Sharif PharmD Unavailable Christine Edgar Tolentino MD Primary Care Provider [phone] Source Comments This information has been disclosed [...] release of HIV test results or diagnoses. [id number] Health Encounter Details Date Type Department Care Team (Late st Contact Info) Description 11/22/2023 Telephone [facility] Liver Transplant at [place] [address] [facility] [address] [place] [address] Estrella Goodrich MA Social History [...] place to sleep or slept in a skilled nursing (including now)? No 11/05/2023 Sex and Gender Information Value Date Recorded Sex Assigned at Not on file Legal Sex Male 11:05 AM EDT Gender Identity Not on file Sexual Orientation Not on file documented as of this encounter Progress Notes * Maile Valles RN - 11/24/2023 1:17 PM EDT Per attending provider from patient's admission, plan was for patient to follow up with local surgeon, Dr. Gruber, so no vascular access referral was placed. Also, metal grader for [facility] will contact patient to set up telehealth visit with Dr. Montalvo to discuss hernia. Txp MA to update patient. * Maile Valles RN - 11/23/2023 7:15 AM EDT Reviewed notes from patient's recent admission. Midline ventral hernia noted. Message sent to Dr. Montalvo asking if patient can be scheduled for consult to discuss. In regards to vascular surgery referral, patient had revision and ligation of LUE AVF by Dr. Gruber (local) on 10/27/23. Unclear if patient needs referral to Vascular Surgery or if he is to continue follow-up with local surgeon. Will try to clarify. documented in this encounter Miscellaneous Notes * Telephone Encounter - Estrella Goodrich MA - 11/24/2023 1:51 PM EDT Called pt back to relay message from CC Pt aware they will be contacted by Dr. Montalvo's team to schedule appt to review hernia. Pt stated they would like to be referred to 's vascular team as they are not interested in following up with local provider who they had seen previously. Explained to pt that I would share message with CC about referral. * Telephone Encounter - Esterlla Goodrich MA - 11/22/2023 2:49 PM EDT Pt called asking to if CC would be able to call them back. Pt states they were told during admission that they may need to have their abdominal hernia repaired. States they received a call from a different team and explained if it needs to be repaired, they would like to do it through Dr. Montalvo. Pt also explained that during same admission they were told by their provider that they need to be seen by vascular surgery. It was unclear if a referral has already been made. Pt explained that their provider Dr. Ordoñez should know about it. documented in this encounter Plan of Treatment Upcoming Encounters Date Type Department Care Team (Late st Contact Info) Description 07/15/2024 9:00 AM EST Hospital Encounter [facility] Interventional Radiology [address] [place] [phone] Herve Carrillo MD [address] [facility] [address] [facility] [place] [address] documented as of this encounter Visit Diagnoses Not on filedocumented in this encounter Additional Health Concerns Assessment Noted Time PHQ-9 Depression Total Score: 0 12/06/19 18 3:00 PM EDT documented as of this encounter Care Teams Tucking Machine Operator Relationship Specialty Start Date End Date Edgar Fournier MD [address] [place] [address] [place] [address] PCP - General 12/22/21 Maile Valles, JANA Txp Post Coordinator Transplant Hepatology 11/07/17 Jack Ordoñez MD [address] [place] [phone] Consulting Physician Transplant Hepatology 01/05/18 Estephania Sharif, DarrianD Pharmacist Pharmacist 11/11/19 documented as of this encounter
--- OUTSIDE RECORDS SUMMARY | 2024-07-12 12:25 | XMS_ITS | Encounter Summary ---
Author Organization [facility] Address [facility] [place] [address] Care Team Providers Care Rn Heart Name Role Phone Maile Valles RN Unavailable Unavail able Jack Ordoñez MD Unavailable [phone] Estephania Sharif PharmD Unavailable Christine Edgar Tolentino MD Primary Care Provider [phone] Source Comments This information has been disclosed [...] release of HIV test results or diagnoses. [id number] Encounter Details Date Type Department Care Team (Latest Contact Info) Description 10/23/2023 Travel Social History Tobacco Use Types Packs/Day [...] you are drinking? Patient does not drink 09/19/202 2 Q3: How often do you have si [...] Description 07/15/2024 9:00 AM EST Hospital Encounter [facility] Interventional Radiology [address] [place] [phone] Herve Carrillo MD [address] [facility] [address] [place] [address] documented as of this encounter Visit Diagnoses Not on filedocumented in this encounter Additional Health Concerns Assessment Noted Time PHQ-9 Depression Total Score: 0 12/06/19 18 3:00 PM EDT documented as of this encounter Care Teams Rn Heart Relationship Specialty Start Date End Date Edgar Fournier MD [address] [place] [address] [place] [address] PCP - General 12/22/21 Maile Valles, RN Txp Post Coordinator Transplant Hepatology 11/07/17 Jack Ordoñez MD [address] [place] [phone] Consulting Physician Transplant Hepatology 01/05/18 Estephania Sharif, DarrianD Pharmacist Pharmacist 11/11/19 documented as of this encounter
--- OUTSIDE RECORDS SUMMARY | 2024-07-12 12:25 | XMS_ITS | Encounter Summary ---
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 SURGERY BACK SURGERY 04/2020 [facility] COLONOSCOPY N/A 03/23/2022 Procedure: COLONOSCOPY WITH [...] TIPS Revision 04/2017 TYMPANOSTOMY TUBE PLACEMENT 07/2020 Medications Inpatient Meds: Scheduled: alteplase (ACTIVASE) 1 mg in sterile water (PF) syringe for line care 1 mg Intracatheter Once AMPicillin-sulbactam 3 g Intravenous 2 times per day aspirin 81 mg Oral Daily with breakfast carBAMazepine 200 mg Oral BID carvediloL 50 mg Oral BID WC cinacalcet 90 mg Oral Daily with breakfast cycloSPORINE modified 100 mg Oral Q12H dicyclomine 20 mg Oral QID doxazosin 8 mg Oral Daily 0900 entecavir 0.5 mg Oral Q7 Days ergocalciferol 50,000 Units Oral Once per day on Monday folic acid 1 mg Oral Daily 09 gabapentin 300 mg Oral Daily 09 [Held by provider] hydrALAZINE 100 mg Oral Q8H icosapent ethyL 2 g Oral BID WC insulin lispro 0-8 Units Subcutaneous QID montelukast 10 mg Oral Daily 0900 [Held by provider] mycophenolate 250 mg Oral BID NIFEdipine 90 mg Oral Daily 0900 pantoprazole 40 mg Oral BID simethicone 80 mg Oral PC/HS sodium chloride 0.9% 10 mL Intravenous QS tenapanor 30 mg Oral BID WC Continuous: Allergies Allergies Allergen Reactions Tacrolimus Other (See Comments) Anxious feeling and muscle jerking. TOLERATED ENVARSUS BETTER THAN PROGRAF. Codeine Sulfate Hyper Codeine Other (See Comments) Becomes hyper Physical Exam Temp: [97.3 ??F (36.3 ??C)-98.2 ??F (36.8 ??C)] 97.9 ??F (36.6 ??C) Heart Rate: [73-95] 81 Resp: [16-17] 16 BP: (92-157)/(53-94) 148/89 FiO2: [30 %] 30 % General: In no acute distress. Lymph nodes: No cervical lymphadenopathy. HEENT: No icterus. Neck: Supple. Trachea midline. Heart: S1S2. Lungs: Clear to auscultation bilaterally Abdomen: Soft, non-tender Skin: No obvious lesions or rashes. Extremities: Left forearm - AV fistula site noted. No drainage. Some mild erythema of AV fistulae site. Neuro: Awake, alert and oriented to time, place and person. Psych: Appropriate, co-operative. LABS Lab 11/08/23 0638 11/07/23 1050 11/06/23 0447 11/05/23 0801 WBC 4.6 6.4 5.6 5.1 HEMOGLOBIN 9.4* 9.5* 9.3* 9.5* HEMATOCRIT 28.6* 28.5* 27.7* 28.1* MEAN CORPUSCULAR VOLUME 98.0 98.6 99.6 98.4 PLATELETS 335 344 302 265 Lab 11/08/23 0638 11/07/23 1050 11/06/23 0447 SODIUM 139 137 137 POTASSIUM 4.3 4.8 5.4* CHLORIDE 103 99 103 CO2 BUN 26* 33* 41* CREATININE 7.29* 8.87* 10.36* EGFR 9 7 6 GLUCOSE 156* 206* 182* CALCIUM 9.3 9.0 9.0 PHOSPHORUS 5.0* 4.9* 7.4* Lab 11/08/23 0638 11/07/23 1050 11/06/23 0807 11/05/23 0801 11/04/23 1457 ALT 8 9 10 -- 10 AST 13 12* 12* -- 12* ALK PHOS 110 108 109 -- 103 BILIRUBIN TOTAL 0.4 0.4 0.4 -- 0.4 BILIRUBIN DIRECT 0.14 0.06 0.05 -- 0.14 ALBUMIN 3.8 3.9 3.9 -- 3.9 ALBUMINKID 3.8 3.9 -- < > 3.9 < > = values in this interval not displayed. Lab Results Component Value Date CRP 85.5 (H) 11/08/2023 CRP 107.2 (H) 11/05/2023 CRP 14.3 (H) 09/03/2020 Lab Results Component Value Date ESR 15 09/03/2020 ESR 21 (H) 07/15/2020 ESR 21 (H) 06/22/2020 Invalid input(s): [facility] RAY FINDINGS: Medical Devices: Right IJ approach central venous catheter tip projects over the upper SVC. Heart and Mediastinum: Cardiac silhouette is borderline enlarged, but unchanged. Lungs and Pleura: Lungs are clear. No pleural effusions or evidence for pneumothorax, however sensitivity is limited due to supine positioning. Bones and Soft tissues: No acute abnormalities. Impression IMPRESSION: Right IJ approach central venous catheter tip projects over the upper SVC. No findings to suggest an acute cardiopulmonary abnormality. MICROBIOLOGY Microbiology Results Date and Time Order Name Sensitivity Status Organisms Specimen ID Source 11/04/2023 11:34 PM #1 Blood culture-Peripheral site 1 Preliminary [id number] Peripheral 11/04/2023 8:15 PM #2 Blood culture-Peripheral site 2 Preliminary [id number] Peripheral Impression and plan Aiden Stauffer Jr. is a 48 y.o.male with cirrhosis s/p liver transplant 2018 (on CellCept and cyclosporine), ESRD on HD admitted on 11/04/2023 for dialysis. ID consulted due to concern for fistula infection. A/P: Blood cx positive: Most likely culture contamination. The fistula is not clearly infected. There isno high grade ongoing bacteremia. No other ongoing source of infection. I would therefore try to limit antibiotics at this time overall. Suggest we complete 10 day course. Can move to oral therapy. ESR is not very high and CRP is coming down. If he were to develop and worsening erythema from fistula or drainage, would need appropriate cultures and reassess at that time. RECS: 1-Stop IV antibiotics 2-Give Augmentin 875 mg twice daily to complete 10 days total (end date: November 13, 2023) 3-Would not treat the Facklamia Hominis at this time - Might be a culture contaminant. ID will sign off. Please call if new issues arise. Tray Cramer MD 11/08/2023 10:04 AM Infectious Diseases Attending My Office: [phone] Patient Appointments: [phone] Secure Patient Office My Cell My Pager: [phone] * Clyde Aren - 11/08/2023 9:08 AM EDT [facility] DEPARTMENT OF INTERNAL MEDICINE DAILY PROGRESS NOTE Chief Complaint / Reason for Follow-Up Aiden Stauffer Jr. is a 48 y.o. male on hospital day 4. The principal reason for today's follow up visit is hypervolemia. Interval History / Subjective - reports feeling good. Also reports using oxygen at home when needed. - improvement of jaw swelling - 4 bowel movements yesterday, not loose stools or diarrhea Patient notes having a history of IBS Past medical, family, and social histories were reviewed as previously documented. Updates were made as necessary. Review of Systems As per HPI. Medications Scheduled Meds: alteplase (ACTIVASE) 1 mg in sterile water (PF) syringe for line care 1 mg Intracatheter Once AMPicillin-sulbactam 3 g Intravenous 2 times per day aspirin 81 mg Oral Daily with breakfast carBAMazepine 200 mg Oral BID carvediloL 50 mg Oral BID WC cinacalcet 90 mg Oral Daily with breakfast cycloSPORINE modified 100 mg Oral Q12H dicyclomine 20 mg Oral QID doxazosin 8 mg Oral Daily 0900 entecavir 0.5 mg Oral Q7 Days ergocalciferol 50,000 Units Oral Once per day on Monday folic acid 1 mg Oral Daily 0900 gabapentin 300 mg Oral Daily 0900 [Held by provider] hydrALAZINE 100 mg Oral Q8H icosapent ethyL 2 g Oral BID WC insulin lispro 0-8 Units Subcutaneous QID montelukast 10 mg Oral Daily 0900 [Held by provider] mycophenolate 250 mg Oral BID NIFEdipine 90 mg Oral Daily 0900 pantoprazole 40 mg Oral BID simethicone 80 mg Oral PC/HS sodium chloride 0.9% 10 mL Intravenous QS tenapanor 30 mg Oral BID WC Continuous Infusions: PRN Meds:acetaminophen, clonazePAM, dextrose 10% in water OR dextrose 10% in water, diphenhydrAMINE, For Catheter Lock: gentamicin 0.32 mg/mL and citrate 4% antibiotic IV lock, glucose, HYDROmorphone, methocarbamoL, ondansetron, polyethylene glycol, QUEtiapine, sodium chloride Vital Signs Temp: [97.3 ??F (36.3 ??C)-98.2 ??F (36.8 ??C)] 97.9 ??F (36.6 ??C) Heart Rate: [73-95] 81 Resp: [16-17] 16 BP: (92-157)/(53-94) 148/89 FiO2: [30 %] 30 % Intake/Output Summary (Last 24 hours) at 11/08/2023 0908 Last data filed at 11/08/2023 0519 Gross per 24 hour Intake 120 ml Output 4000 ml Net -3880 ml Physical Exam Physical Exam Constitutional: General: He is not in acute distress. Comments: well appearing HENT: Mouth/Throat: Comments: L sided swelling of parotid gland, significantly improved from yesterday. No induration or fluctuance Eyes: Extraocular Movements: Extraocular movements intact. Conjunctiva/sclera: Conjunctivae normal. Neck: Comments: RIJ site with bandage c/d/I. No hematoma Cardiovascular: Rate and Rhythm: Normal rate and regular rhythm. Pulmonary: Effort: Pulmonary effort is normal. Crackly sound in expiration. Comments: Breathing comfortably on 3L NC Abdominal: General: There is distension. Palpations: Abdomen is soft. Tenderness: There is no abdominal tenderness. There is no guarding or rebound. Musculoskeletal: Cervical back: Neck supple. Right lower leg: No edema. Left lower leg: No edema. Skin: General: Skin is warm and dry. Neurological: General: No focal deficit present. Mental Status: He is alert and oriented to person, place, and time. Psychiatric: Mood and Affect: Mood normal. Behavior: Behavior normal. Laboratory Data Lab 11/08/23 0638 11/07/23 1050 11/06/23 0447 11/05/23 0801 WBC 4.6 6.4 5.6 5.1 HEMOGLOBIN 9.4* 9.5* 9.3* 9.5* HEMATOCRIT 28.6* 28.5* 27.7* 28.1* MEAN CORPUSCULAR VOLUME 98.0 98.6 99.6 98.4 PLATELETS 335 344 302 265 Lab 11/08/23 0638 11/07/23 1050 11/06/23 0447 11/05/23 0801 SODIUM 139 137 137 139 POTASSIUM 4.3 4.8 5.4* 4.3 CHLORIDE 103 99 103 102 CO2 BUN 26* 33* 41* 32* CREATININE 7.29* 8.87* 10.36* 8.07* GLUCOSE 156* 206* 182* 104* CALCIUM 9.3 9.0 9.0 9.1 MAGNESIUM 1.9 1.9 2.0 1.9 PHOSPHORUS 5.0* 4.9* 7.4* 6.2* Lab 11/04/23 1457 INR 1.1 PROTHROMBIN TIME 14.1 Lab 11/08/23 0638 11/07/23 1050 11/06/23 0807 11/05/23 0801 11/04/23 1457 ALT 8 9 10 -- 10 AST 13 12* 12* -- 12* ALK PHOS 110 108 109 -- 103 BILIRUBIN TOTAL 0.4 0.4 0.4 -- 0.4 BILIRUBIN DIRECT 0.14 0.06 0.05 -- 0.14 ALBUMIN 3.8 3.9 3.9 -- 3.9 ALBUMINKID 3.8 3.9 -- < > 3.9 < > = values in this interval not displayed. Diagnostic Studies US of Left Forearm 11/07 IMPRESSION: Clotted AV fistula at the site of pain in the anterior upper arm. No soft tissue edema or organizedfluid collections. Echo 11/07 Study Conclusions - Left ventricle: The cavity size is normal. Wall thickness is normal. Systolic function is normal. The estimated ejection fraction is 55-60%. Although no diagnostic regional wall motion abnormality is identified, this possibility cannot be completely excluded on the basis of this study. - Right ventricle: The cavity size is moderately dilated. Systolic function is reduced by visual assessment. Impressions: Very technically difficult study. Probably no atrial level shunt. Valves are not well visualized. Cannot compare with previous report Assessment & Plan Aiden Stauffer . is a 48 y.o. with a history of ESRD/HD/temporary dialysis cath 08/11/23/LUE AVF malfunctioning since 08/10/23, T2DM, morbid obesity, KIM liver cirrhosis s/p liver transplant 2018 on chronic immunosuppression with Cyclosporine and CellCept, Hep B on Entecavir, and discitis/epidural abscess s/p laminectomy/I&D who is admitted for hypervolemia. #parotitis,improving #neck swelling, improving CT neck with IV constrast showed Mild edema in the subcutaneous soft tissues of the left face and surrounding the left parotid gland. The left parotid gland is slightly increased in density when compared to the right, which may represent mild hyperemia and either a primary or reactive parotitis. Area is firm near the left mandible. No skin erythema or nodules, enanthems. He denies any foul smells or tastes in the last several days, so lower concern for purulence. Imaging negative for abscess.RIJ removed two days ago without complications. Neck swelling and parotid swelling both significantly improved today. Plan: - switch to PO Augmentin today - Encourage use of warm compress and gentle massages to promote resolution. - TMC placement today with IR. Plan to discharge tomorrow after dialysis #Diarrhea #abdominal pain Frequent watery, non-bloody bowel movements with significant abdominal cramping and gas. Pt is immunosuppressed and has history of CMV esophagitis Plan: - diarrhea resolved from 11/06 - c diff negative - check CMV/c. Diff/enteric pathogen panel. - bentyl and simethicone for abdominal cramping and gas #Concern for LUE AVF infection #Hx of recent bacteremia (last Blood Cx + for gram + cocci clusters 10/30) On 10/24 presented for worsening pain, swelling, and redness at LUE AVF site concern for infection. On 10/26 had revision and ligation by Dr. Gruber, vascular surgery. Last positive blood cultures were from 10/31/23, gram positive cocci. ID was following and recs were to continue CTX 2g IV daily and patient can have permanent access if repeat blood cultures are negative 5 days. Evaluated by Transplant ID here: cultures growing facklamia hominis-- thought to be contaminant. Repeat cultures NGTD. If cultures continue to be clear, permanent HD line can be placed. Plan: - IR permanent catheter placement tomorrow 11/06 - no antibiotics aside from unasyn for parotitis as above - Transplant ID consulted, appreciate recs as above - TTE: resulted back with no major abnormalities, moderated RV dilation - US came back with no concern for infection. Will not move forward with PET scan. ID agrees. #Dialysis access problems 10/24 c/f LUE graft infection, ligated on 10/26. TDC placed, however concerned for infection and was removed on 10/29. Non tunneled dialysis catheter placed on 10/31. Femoral access obtained in ED (11/03). Plan: - blood cultures clear, IR permanent cath placement 11/07 #Volume overloaded #ESRD on HD MTThF Anuric at baseline. Per chart review estimated dry weight = 134 kg. Has R fem for access, last dialysis on 10/30. Still appears clinically hypervolemic today with distended abdomen, on O2 with likely some component of pulmonary edema. Plan: - dialysis today - Obtain daily weights. - Cinacalcet 90 mg daily. - Vitamin D 50, 000 units 3 times week MWF. 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 Initial recommendations were to hold Cellcept for now Plan: - Continue cyclosporine 100 mg BID with daily Cyclosporine trough. - Hold Cellcept 250 mg BID per Hepatology until further notice. Possible continuation of Cellcept after Augmentin course is finished O/P - Continue Entecavir 0.5 mg qWeek - Liver consult consulted and recommendations are appreciated. #Normocytic anemia Likely anemia of chronic disease. Iron studies with low normal iron and TIBC with high ferritin. Hemolysis labs unremarkable. Hgb 9.3, slowly downtrending. No recent bleeding episodes aside from darkstool yesterday. Pt describes them as dark and loose. Plan: - CTM - diarrhea resolved yesterday -may need EPO with dialysis #DM type II HbA1c 7.1 this admission. Appears to be taking Lantus 30u BID and LDSSI at home however when askingpt, he is taking the Lantus PRN(?) and has not taking it frequently as of late. Plan: - MDSSI--glucose currently at goal this AM (140-180) - ASA 81 mg risk reduction. #HpEF (EF 40-45%) NYHA Class III #JC on CPAP #WHO II Pulmonary HTN - Continue coreg 50 mg BID. - Holding hydralazine 100 mg TID. - Nifedipine 90 mg BID. - nightly cpap #Neuropathy Continue home Carbamazepine 200 mg BID, Gabapentin 100 mg TID, and Robaxin 500mg daily #Anxiety Continue home clonazepam 0.5 mg daily as needed #BPH Continue home doxazosin 8 mg qhs as needed #GERD Continue home Protonix 40 mg BID Nutrition: Diet/Nutrition Orders Diet NPO past midnight Except for: for procedure Frequency: Effective Number of Occurrences: Until Specified Order Questions: Except for for procedure Dietary nutrition supplements Frequency: TID Number of Occurrences: Until Specified Order Comments: Mercer flavor if available Order Questions: Select Supplement: Boost Max - High Protein Code Status: Full Code Signed: CLYDE YOUNGER 11/08/2023, 9:08 AM Cosigned by Barrie Farah DO at 11/08/2023 3:34 PM EDT Associated attestation - Barrie Farah DO - 11/08/2023 3:34 PM EDT I was present with the medical student and have personally performed the physical exam and medical decision making. I have reviewed the medical student???s note and agree with their assessment and plan. See resident note for attestation * Kari Spear MD - 11/07/2023 11:32 AM EDT [facility] DEPARTMENT OF INTERNAL MEDICINE DAILY PROGRESS NOTE Chief Complaint / Reason for Follow-Up Aiden Stauffer Jr. is a 48 y.o. male on hospital day 3. The principal reason for today's follow up visit is hypervolemia. Interval History / Subjective - no diarrhea since last night - with some cough, still on O2. Does have O2 at home but only wears it as needed - swelling in jaw has improved - otherwise feeling well Past medical, family, and social histories were reviewed as previously documented. Updates were made as necessary. Review of Systems As per HPI. Medications Scheduled Meds: AMPicillin-sulbactam 3 g Intravenous 2 times per day aspirin 81 mg Oral Daily with breakfast carBAMazepine 200 mg Oral BID carvediloL 50 mg Oral BID WC cinacalcet 90 mg Oral Daily with breakfast cycloSPORINE modified 100 mg Oral Q12H dicyclomine 20 mg Oral QID doxazosin 8 mg Oral Daily 0900 entecavir 0.5 mg Oral Q7 Days ergocalciferol 50,000 Units Oral Once per day on Monday folic acid 1 mg Oral Daily 09 gabapentin 300 mg Oral Daily 09 heparin 5,000 Units Subcutaneous 3 times per day [Held by provider] hydrALAZINE 100 mg Oral Q8H icosapent ethyL 2 g Oral BID WC insulin lispro 0-8 Units Subcutaneous QID montelukast 10 mg Oral Daily 0900 [Held by provider] mycophenolate 250 mg Oral BID NIFEdipine 90 mg Oral Daily 0900 pantoprazole 40 mg Oral BID simethicone 80 mg Oral PC/HS sodium chloride 0.9% 10 mL Intravenous QS tenapanor 30 mg Oral BID WC Continuous Infusions: PRN Meds:acetaminophen, clonazePAM, dextrose 10% in water OR dextrose 10% in water, diphenhydrAMINE, For Catheter Lock: gentamicin 0.32 mg/mL and citrate 4% antibiotic IV lock, glucose, HYDROmorphone, methocarbamoL, ondansetron, polyethylene glycol, QUEtiapine, sodium chloride Vital Signs Temp: [97.3 ??F (36.3 ??C)-98.8 ??F (37.1 ??C)] 98.2 ??F (36.8 ??C) Heart Rate: [63-96] 80 Resp: [16-20] 16 BP: (49-178)/(36-94) 141/80 FiO2: [30 %] 30 % Intake/Output Summary (Last 24 hours) at 11/07/2023 1131 Last data filed at 11/07/2023 0900 Gross per 24 hour Intake 500 ml Output 3072 ml Net -2572 ml Physical Exam Physical Exam Constitutional: General: He is not in acute distress. Comments: well appearing HENT: Mouth/Throat: Comments: L sided swelling of parotid gland with continued improvement. No induration or fluctuance Eyes: Extraocular Movements: Extraocular movements intact. Conjunctiva/sclera: Conjunctivae normal. Cardiovascular: Rate and Rhythm: Normal rate and regular rhythm. Pulmonary: Effort: Pulmonary effort is normal. Comments: Breathing comfortably on 3L NC Abdominal: General: There is distension. Palpations: Abdomen is soft. Tenderness: There is no abdominal tenderness. There is no guarding or rebound. Musculoskeletal: Cervical back: Neck supple. Right lower leg: No edema. Left lower leg: No edema. Skin: General: Skin is warm and dry. Neurological: General: No focal deficit present. Mental Status: He is alert and oriented to person, place, and time. Psychiatric: Mood and Affect: Mood normal. Behavior: Behavior normal. Laboratory Data Lab 11/07/23 1050 11/06/23 0447 11/05/23 0801 11/04/23 1457 WBC 6.4 5.6 5.1 5.0 HEMOGLOBIN 9.5* 9.3* 9.5* 10.0* HEMATOCRIT 28.5* 27.7* 28.1* 29.7* MEAN CORPUSCULAR VOLUME 98.6 99.6 98.4 97.7 PLATELETS 344 302 265 241 Lab 11/07/23 1050 11/06/23 0447 11/05/23 0801 11/04/23 1457 SODIUM 137 137 139 140 POTASSIUM 4.8 5.4* 4.3 5.3 CHLORIDE 99 103 102 103 CO2 20* BUN 33* 41* 32* 56* CREATININE 8.87* 10.36* 8.07* 11.24* GLUCOSE 206* 182* 104* 201* CALCIUM 9.0 9.0 9.1 8.6 MAGNESIUM 1.9 2.0 1.9 -- PHOSPHORUS 4.9* 7.4* 6.2* 6.8* Lab 11/04/23 1457 INR 1.1 PROTHROMBIN TIME 14.1 Lab 11/07/23 1050 11/06/23 0807 11/06/23 0447 11/05/23 0801 11/04/23 1457 ALT 9 10 -- -- 10 AST 12* 12* -- -- 12* ALK PHOS 108 109 -- -- 103 BILIRUBIN TOTAL 0.4 0.4 -- -- 0.4 BILIRUBIN DIRECT 0.06 0.05 -- -- 0.14 ALBUMIN 3.9 3.9 -- -- 3.9 ALBUMINKID 3.9 -- 3.8 < > 3.9 < > = values in this interval not displayed. Diagnostic Studies Reviewed in EMR Assessment & Plan Aiden Stauffer Jr. is a 48 y.o. with a history of ESRD/HD/temporary dialysis cath 08/11/23/LUE AVF malfunctioning since 08/10/23, T2DM, morbid obesity, KIM liver cirrhosis s/p liver transplant 2018 on chronic immunosuppression with Cyclosporine and CellCept, Hep B on Entecavir, and discitis/epidural abscess s/p laminectomy/I&D who is admitted for hypervolemia. #parotitis,improving #neck swelling, improving CT neck with IV constrast showed Mild edema in the subcutaneous soft tissues of the left face and surrounding the left parotid gland. The left parotid gland is slightly increased in density when compared to the right, which may represent mild hyperemia and either a primary or reactive parotitis. Area is firm near the left mandible. No skin erythema or nodules, enanthems. He denies any foul smells or tastes in the last several days, so lower concern for purulence. Imaging negative for abscess.RIJ removed two days ago without complications. Neck swelling and parotid swelling both significantly improved today. Plan: - switch to PO Augmentin today - Encourage use of warm compress and gentle massages to promote resolution. #Diarrhea #abdominal pain Frequent watery, non-bloody bowel movements with significant abdominal cramping and gas. Pt is immunosuppressed and has history of CMV esophagitis Plan: - diarrhea resolved from yesterday - c diff negative - follow-up CMV and enteric pathogen panel. - bentyl and simethicone for abdominal cramping and gas #Concern for LUE AVF infection #Hx of recent bacteremia (last Blood Cx + for gram + cocci clusters 10/30) On 10/24 presented for worsening pain, swelling, and redness at LUE AVF site concern for infection. On 10/26 had revision and ligation by Dr. Gruber, vascular surgery. Last positive blood cultures were from 10/31/23, gram positive cocci. ID was following and recs were to continue CTX 2g IV daily and patient can have permanent access if repeat blood cultures are negative 5 days. Evaluated by Transplant ID here: cultures growing facklamia hominis-- thought to be contaminant. Repeat cultures NGTD. Plan: - IR permanent catheter placement tomorrow 11/07 - no antibiotics aside from augmetin for parotitis as above - Transplant ID consulted, appreciate recs as above - TTE ordered #Dialysis access problems 10/24 c/f LUE graft infection, ligated on 10/26. TDC placed, however concerned for infection and was removed on 10/29. Non tunneled dialysis catheter placed on 10/31. Femoral access obtained in ED (11/03). Plan: - blood cultures clear, IR permanent cath placement 11/07 #Volume overloaded #ESRD on HD MTThF Anuric at baseline. Per chart review estimated dry weight = 134 kg. Has R fem for access. Still appears clinically hypervolemic today with distended abdomen, on O2 with likely some component of pulmonary edema. Plan: - dialysis today - Obtain daily weights. - Cinacalcet 90 mg daily. - Vitamin D 50, 000 units 3 times week MWF. #Acute Hypoxic Respiratory Failure -requiring 2-4L O2 via NC. Suspect pulmonary edema in the setting of volume overload. Will continueto dialyze and wean O2 as tolerated -Has O2 at home that he wears if needed, not regularly. 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 Initial recommendations were to hold Cellcept for now Plan: - Continue cyclosporine 100 mg BID with daily Cyclosporine trough. - Hold Cellcept 250 mg BID per Hepatology until further notice. - Continue Entecavir 0.5 mg qWeek - Liver consult consulted and recommendations are appreciated. #Normocytic anemia Likely anemia of chronic disease. Iron studies with low normal iron and TIBC with high ferritin. Hemolysis labs unremarkable. Hgb stable Plan: - CTM -may need EPO with dialysis #DM type II HbA1c 7.1 this admission. Appears to be taking Lantus 30u BID and LDSSI at home however when askingpt, he is taking the Lantus PRN(?) and has not taking it frequently as of late. Plan: - MDSSI q AM + mealtime - ASA 81 mg risk reduction. #HpEF (EF 40-45%) NYHA Class III #JC on CPAP #WHO II Pulmonary HTN - Continue coreg 50 mg BID. - Holding hydralazine 100 mg TID. - Nifedipine 90 mg BID. - nightly cpap #Neuropathy Continue home Carbamazepine 200 mg BID, Gabapentin 100 mg TID, and Robaxin 500mg daily #Anxiety Continue home clonazepam 0.5 mg daily as needed #BPH Continue home doxazosin 8 mg qhs as needed #GERD Continue home Protonix 40 mg BID Nutrition: Diet/Nutrition Orders Diet NPO past midnight Except for: for procedure Frequency: Effective Number of Occurrences: Until Specified Order Questions: Except for for procedure Diet renal Frequency: Effective Now Number of Occurrences: Until Specified Order Questions: Suicide/Behavior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 FELICITAS FRANCO MD Interventional Radiology 11/04/2023, 5:18 PM documented in this encounter Plan of Treatment Upcoming Encounters Date Type Department Care Team (Late st Contact Info) Description 07/15/2024 9:00 AM EST Hospital Encounter [facility] Interventional Radiology [address] [place] [address] Herve Carrillo MD [address] [facility] [place] [address] documented as of this encounter Procedures Procedure Name Priority Date/Time Associated Diagnosis Comments EKG - SCAN 11/10/2023 7:10 AM EDT POC GLU MONITORING DEVICE Routine 11/09/2023 12:11 PM EDT POC GLU MONITORING DEVICE Routine 11/09/2023 10:05 AM EDT HEPATIC FUNCTION PANEL Routine 6:11 AM EDT CYCLOSPORINE LEVEL Timed 11/09/2023 6: 11 AM EDT CBC Routine 11/09/2023 6:11 AM EDT MAGNESIUM Routine 11/09/2023 6:11 AM EDT BASIC METABOLIC PANEL Routine 11/09/2023 6:11 AM EDT POC GLU MONITORING DEVICE Routine 11/08/2023 8:35 PM EDT POC GLU MONITORING DEVICE Routine 11/08/2023 4:10 PM EDT IR HUEY ALVARADO YUVAL RIGHT WO PORT>5YR Routine 11/08/2023 2:15 PM EDT POC GLU MONITORING DEVICE Routine 11/08/2023 8:55 AM EDT CYCLOSPORINE LEVEL Timed 11/08/2023 8: 22 AM EDT POC GLU MONITORING DEVICE Routine 11/08/2023 6:47 AM EDT HEPATIC FUNCTION PANEL Routine 6:38 AM EDT RENAL FUNCTION PANEL W/EGFR Routine 11/08/2023 6:38 AM EDT SED RATE Routine 11/08/2023 6:38 AM EDT CBC Routine 11/08/2023 6:38 AM EDT C-REACTIVE PROTEIN Routine 11/08/2023 6: 38 AM EDT MAGNESIUM Routine 11/08/2023 6:38 AM EDT PREPARE RBC, LEUKOREDUCED Routine 11/08/2023 12:07 AM EDT POC GLU MONITORING DEVICE Routine 11/07/2023 8:02 PM EDT POC GLU MONITORING DEVICE Routine 11/07/2023 5:22 PM EDT ECHO 2D COMPLETE W/CONTRAST (TTE) Routine 11/07/2023 4:04 PM EDT US EXTREMITY NON-VASCULAR LEFT COMPLETE Routine 11/07/2023 3:10 PM EDT HEPATIC FUNCTION PANEL Routine 10:50 AM EDT RENAL FUNCTION PANEL W/EGFR Routine 11/07/2023 10:50 AM EDT CYCLOSPORINE LEVEL Routine 11/07/2023 10 :50 AM EDT CBC Routine 11/07/2023 10:50 AM EDT MAGNESIUM Routine 11/07/2023 10:50 AM EDT POC GLU MONITORING DEVICE Routine 11/07/2023 7:50 AM EDT POC GLU MONITORING DEVICE Routine 11/06/2023 6:25 PM EDT POC GLU MONITORING DEVICE Routine 11/06/2023 12:26 PM EDT CMV IGM ANTIBODY Routine 11/06/2023 9:48 AM EDT CMV IGG ANTIBODY Routine 11/06/2023 9:48 AM EDT POC GLU MONITORING DEVICE Routine 11/06/2023 8:22 AM EDT HEPATIC FUNCTION PANEL STAT 8:07 AM EDT CYCLOSPORINE LEVEL Timed 11/06/2023 8: 07 AM EDT RENAL FUNCTION PANEL W/EGFR Routine 11/06/2023 4:47 AM EDT DIFFERENTIAL Routine 11/06/2023 4:47 AM EDT CBC Routine 11/06/2023 4:47 AM EDT MAGNESIUM Routine 11/06/2023 4:47 AM EDT CLOSTRIDIUM DIFFICILE DNA AMPLIFICATION Routine 11/06/2023 12:10 AM EDT POC GLU MONITORING DEVICE Routine 11/05/2023 7:46 PM EDT CYCLOSPORINE LEVEL Timed 11/05/2023 5: 56 PM EDT POC GLU MONITORING DEVICE Routine 11/05/2023 4:59 PM EDT POC GLU MONITORING DEVICE Routine 11/05/2023 1:31 PM EDT RENAL FUNCTION PANEL W/EGFR Routine 11/05/2023 8:01 AM EDT DIFFERENTIAL Routine 11/05/2023 8:01 AM EDT CBC Routine 11/05/2023 8:01 AM EDT MAGNESIUM Routine 11/05/2023 8:01 AM EDT HEMOGLOBIN A1C Routine 11/05/2023 8:01 AM EDT RETICULOCYTE COUNT, AUTO Routine 11/05/2023 5:00 AM EDT IRON STUDIES Routine 11/05/2023 5:00 AM EDT C-REACTIVE PROTEIN Routine 11/05/2023 5: 00 AM EDT LACTATE DEHYDROGENASE Routine 11/05/2023 5:00 AM EDT HAPTOGLOBIN Routine 11/05/2023 5:00 AM EDT FOLATE Routine 11/05/2023 5:00 AM EDT FERRITIN Routine 11/05/2023 5:00 AM EDT VITAMIN B12 Routine 11/05/2023 5:00 AM EDT BLOOD CULTURE-PERIPHERAL STAT 11/04/2023 11:34 PM EDT POC GLU MONITORING DEVICE Routine 11/04/2023 10:51 PM EDT ECG 12-LEAD (MUSE) Routine 11/04/2023 10 :48 PM EDT HEPATITIS B LAB PANEL (HEMODIALYSIS PATIENTS ONLY) STAT 11/04/2023 9:43 PM EDT BLOOD CULTURE-PERIPHERAL Routine 11/04/2023 8:15 PM EDT CENTRAL LINE Routine 11/04/2023 7:02 PM EDT ANTIBODY IDENTIFICATION Routine 11/04/19 6:53 PM EDT ELUTION & ANTIBODY IDENTIFICATION, RBC Routine 11/04/2023 6:52 PM EDT GILBERT ANTI-IGG Routine 11/04/2023 6:[address] NECK WITH IV CONTRAST NIELS 11/04/2023 4:03 PM EDT XR PORTABLE CHEST NIELS 11/04/2023 3:0 4 PM EDT VENOUS BLOOD GAS, LINE/SYRINGE STAT 11/04/2023 2:57 PM EDT HEPATIC FUNCTION PANEL STAT 2:57 PM EDT RENAL FUNCTION PANEL W/EGFR STAT 11/04/2023 2:57 PM EDT ED HCV AB REFLEX TO HCV QUANT Routine 11/04/2023 2:57 PM EDT CYCLOSPORINE LEVEL Routine 11/04/2023 2: 57 PM EDT ABO/RH STAT 11/04/2023 2:57 PM EDT DIFFERENTIAL STAT 11/04/2023 2:57 PM EDT PROTIME-INR STAT 11/04/2023 2:57 PM EDT CBC STAT 11/04/2023 2:57 PM EDT ANTIBODY SCREEN STAT 11/04/2023 2:57 PM EDT documented in this encounter Results * EKG - SCAN (11/10/2023 7:10 AM EDT) us Scanning Uchhim SCAN DOCS - NO RESULTS Final Res ult * (ABNORMAL) POC Glucose Monitoring Device (11/09/2023 12:11 PM EDT) POC Glucose Monitoring Device 236(H) 70 - 100 mg/dL 11/09/2023 12:12 PM EDT [facility] Blood 11/09/2023 12:1 1 PM EDT 11/09/2023 12:12 PM EDT us Dino Hawkins MD POINT OF CARE TEST ORDERABLES F inal Result Performing Organization Address [facility] Co de Phone Number [facility] [address] [place] [address]. [address] * (ABNORMAL) POC Glucose Monitoring Device (11/09/2023 10:05 AM EDT) POC Glucose Monitoring Device 238(H) 70 - 100 mg/dL 11/09/2023 10:06 AM EDT [facility] Blood 11/09/2023 10:0 5 AM EDT 11/09/2023 10:06 AM EDT us Dino Hawkins MD POINT OF CARE TEST ORDERABLES F inal Result Performing Organization Address [facility] de Phone Number [facility] [address] [place] [address]. [address] * (ABNORMAL) Cyclosporine level (11/09/2023 6:11 AM EDT) Cyclosporine, LC/MS 98.2(L) 100.0 - 350.0 ng/mL 11/09/2023 2:01 PM EDT [facility] Comment:Performed via liquid chromatography tandem mass spectrometry. Detection limit: 20 ng/mL. Individual target concentrations may vary due to target organ and time after transplant. This test has been developed and its performance characteristics determined by [facility] which is certified under the Clinical Laboratory Improvement Amendment of 1988 (CLIA-88) to perform high complexity testing. The test has not been cleared or approved by the US Food and Drug Administration (FDA). The FDA has determined that such clearance is not necessary. The test should be used for clinical purposes and is not regarded as investigational. Whole Blood 11/09/2023 6:11 AM EDT 11/09/2023 7:25 AM EDT Narrative [facility] - 11/09/2023 2:01 PM EDT Please obtain 30 minutes prior to administered dose Kari Spear MD LAB BLOOD ORDERABLES Final Re sult [facility] [address] [facility]. [address] * (ABNORMAL) Hepatic Function Panel, AM (11/09/2023 6:11 AM EDT) Total Bilirubin 0.4 0.0 - 1.5 mg/dL 11/09/2023 6:47 AM EDT [facility] Bilirubin, Direct 0.11 0.00 - 0.40 mg/dL 11/09/2023 6:47 AM EDT [facility] AST 12(L) 13 - 39 U/L 11/09/2023 6:47 AM EDT [facility] ALT 7 7 - 52 U/L 11/09/2023 6:47 AM EDT [facility] Alkaline Phosphatase 120 36 - 125 U/L 11/09/2023 6:47 AM EDT [facility] Total Protein 7.0 6.4 - 8.9 g/dL 11/09/2023 6:47 AM EDT [facility] Albumin 3.7 3.5 - 5.7 g/dL 11/09/2023 6:47 AM EDT [facility] Bilirubin, Indirect 0.29 0.00 - 1.10 mg/dL 11/09/2023 6:47 AM EDT [facility] Plasma 11/09/2023 6:11 AM EDT 11/09/2023 6:17 AM EDT Kari Spear MD LAB BLOOD ORDERABLES Final Re sult [facility] [address] * Magnesium, AM (11/09/2023 6:11 AM EDT) Magnesium 1.8 1.5 - 2.5 mg/dL 11/09/2023 6:47 AM EDT [facility] Plasma 11/09/2023 6:11 AM EDT 11/09/2023 6:17 AM EDT us Kari Spear MD LAB BLOOD ORDERABLES Final Re sult [facility] [address] [place] [id number] * (ABNORMAL) Basic Metabolic panel, AM (11/09/2023 6:11 AM EDT) Sodium 136 133 - 146 mmol/L 11/09/2023 6:47 AM EDT [facility] Potassium 4.6 3.5 - 5.3 mmol/L 11/09/2023 6:47 AM EDT [facility] Chloride 100 98 - 110 mmol/L 11/09/2023 6:47 AM EDT [facility] CO2 23 21 - 33 mmol/L 11/09/2023 6:47 AM EDT [facility] Anion Gap 13 3 - 16 mmol/L 11/09/2023 6:47 AM EDT [facility] BUN 33(H) 7 - 25 mg/dL 11/09/2023 6:47 AM EDT [facility] Creatinine 9.13(H) 0.60 - 1.30 mg/dL 11/09/2023 6:47 AM EDT [facility] Glucose 262(H) 70 - 100 mg/dL 11/09/2023 6:47 AM EDT [facility] Calcium 9.0 8.6 - 10.3 mg/dL 11/09/2023 6:47 AM EDT [facility] Osmolality, Calculated 298 278 - 305 mOsm/kg 11/09/2023 6:47 AM EDT [facility] EGFR 6 11/09/2023 6:47 AM EDT [facility] Comment:As of 2021, the estimated [...] Disease. Am J Kidney Dis. 2020. Plasma 11/09/2023 6:11 AM EDT 11/09/2023 6:17 AM EDT us Kari Spear MD LAB BLOOD ORDERABLES Final Re sult [facility] [address] [place] [address], [facility] * (ABNORMAL) CBC, AM (11/09/2023 6:11 AM EDT) WBC 6.0 3.8 - 10.8 10E3/uL 11/09/2023 6:32 AM EDT [facility] RBC 2.83(L) 4.20 - 5.80 10E6/uL 11/09/2023 6:32 AM EDT [facility] Hemoglobin 9.3(L) 13.2 - 17.1 g/dL 11/09/2023 6:32 AM EDT [facility] Hematocrit 27.9(L) 38.5 - 50.0 % 11/09/2023 6:32 AM EDT [facility] MCV 98.9 80.0 - 100.0 fL 11/09/2023 6:32 AM EDT [facility] MCH 32.8 27.0 - 33.0 pg 11/09/2023 6:32 AM EDT [facility] MCHC 33.2 32.0 - 36.0 g/dL 11/09/2023 6:32 AM EDT [facility] RDW 15.2(H) 11.0 - 15.0 % 11/09/2023 6:32 AM EDT [facility] Platelets 366 140 - 400 10E3/uL 11/09/2023 6:32 AM EDT [facility] MPV 7.8 7.5 - 11.5 fL 11/09/2023 6:32 AM EDT [facility] Whole Blood 11/09/2023 6:11 AM EDT 11/09/2023 6:17 AM EDT Kari Spear MD LAB BLOOD ORDERABLES Final Re sult [facility] [address] [facility]. [address] * (ABNORMAL) POC Glucose Monitoring Device (11/08/2023 8:35 PM EDT) POC Glucose Monitoring Device 207(H) 70 - 100 mg/dL 11/08/2023 8:36 PM EDT [facility] Blood 11/08/2023 8:35 PM EDT 11/08/2023 8:36 PM EDT Dino Hawkins MD POINT OF CARE TEST ORDERABLES F inal Result Performing Organization Address [facility] Co de Phone Number [facility] [address] [facility]. [address] * (ABNORMAL) POC Glucose Monitoring Device (11/08/2023 4:10 PM EDT) POC Glucose Monitoring Device 175(H) 70 - 100 mg/dL 11/08/2023 4:11 PM EDT [facility] Blood 11/08/2023 4:10 PM EDT 11/08/2023 4:10 PM EDT Dino Hawkins MD POINT OF CARE TEST ORDERABLES F inal Result Performing Organization Address City/[facility]/ZIP Co de Phone Number [facility] [address] [facility]. [address] * IR huey Alvarado Yuval Right wo port >5years (11/08/2023 2:15 PM EDT) Anatomical Region Laterality Modality Vascular X-Ray Angiograph y 11/08/2023 1:09 PM EDT Impressions 11/08/2023 2:45 PM EDT IMPRESSION: 1. Successful placement of a 27 cm tip-to-cuff, Tunneled Palindrome Silver Ionhemodialysis catheter, via the left internal jugular vein. ?? Plan: 1. Ready for immediate use 2. Consult IR when removal or exchange is indicated Report Verified by: Maame Ribeiro at 11/08/2023 2:45 PM EDT Narrative 11/08/2023 2:45 PM EDT Procedure: TUNNELED, HEMODIALYSIS CATHETER PLACEMENT, ULTRASOUND- AND FLUOROSCOPIC-GUIDED Performed on 11/08/23 Indications: Aiden Stauffer Jr. is a 48 y.o. with a history of ESRD/HD/temporary dialysis cath 08/11/23/LUE AVF malfunctioning since 08/10/23, T2DM, morbid obesity, KIM liver cirrhosis s/p liver transplant 2017 on chronic immunosuppression with Cyclosporine and CellCept, Hep B on Entecavir, and discitis/epidural abscess s/p laminectomy/I&D who is admitted for hypervolemia. ID following for concern for LUE AVF infection with history of recent bacteremia. Fistula ligated at OSH 10/27/23. IR consulted for TDC placement. Of note, patient had previous TDC placed and removed at OSH via RIJ. Temp line placed and treated with rocephin for blood cultures positive for facklamia hominis. Discussed with ID, no need for IV abx after discharge. Planning for PO treatment only. Ladle Patcher: Maame Ribeiro CNP Procedure and Findings: The procedure was performed in the VIR suite following informed consent. ??The patient received fentanyl 25 mcg IV. ??1% lidocaine with epi local anesthesia was used. ??With the patient in the supine position, the left neck and upper chest were prepped and draped in the usual sterile fashion. ?? The left internal jugular vein was evaluated by ultrasound and was found to be widely patent, ultrasound images were permanently stored in PACS. Using ultrasound guidance, an appropriate skin entry site was identified and the left internal jugular vein was accessed using a 21-G needle. ??A 0.018 inch guidewire was advanced into the IVC using fluoroscopic guidance. ??The access needle was exchanged for a 4-F stiff micropuncture catheter. The 0.018 inch guidewire was used for measurement prior to its removal A 0.035 Amplatz guidewire was then advanced through the micropuncture catheter into the IVC under fluoroscopy guidance to secure access. A site 1-2 cm below the inferior margin the clavicle was identified as the tunnel exit site. ??A small incision was made using a #11 blade and the catheter was tunneled through the chest incision to the lateral neck dermatotomy. ??The catheter cuff was placed 1-2 cm inside the tunnel exit site. ?? The track was serially dilated to 14-F over the 0.035 Amplatz guidewire, and the peel-away sheath was placed. ??The hemodialysis catheter was advanced through the peel-away sheath after removal of guidewire and placed into position. ?? A fluoroscopic image was obtained which confirmed the tip of the catheter was in the mid-right atrium. ?? The catheter lumens aspirated and flushed freely. ??Each catheter lumen was primed with appropriate volumes of heparin 1000 units / mL. ??The left neck dermatotomy incision was closed with Dermabond. ??The catheter was secured with suture and dressed in the usual fashion with biopatch and sterile caps in place. There were no immediate complications. ?? Fluoro time was 3.3 minutes. Procedure Note Maame Ribeiro CNP - 11/08/2023 Procedure: TUNNELED, HEMODIALYSIS CATHETER PLACEMENT, ULTRASOUND- ANDFLUOROSCOPIC-GUIDED Performed on 11/08/23 Indications: Aiden Oviedo Eh Marques is a 48 y.o. with a history ofESRD/HD/temporary dialysis cath 08/11/23/LUE AVF malfunctioning since08/10/23, T2DM, morbid obesity, KIM liver cirrhosis s/p liver [id number] on chronic immunosuppression with Cyclosporine and CellCept, Hep B onEntecavir, and discitis/epidural abscess s/p laminectomy/I&D who isadmitted for hypervolemia. ID following for concern for LUE AVF infectionwith history of recent bacteremia. Fistula ligated at OSH 10/27/23. IRconsulted for TDC placement. Of note, patient had previous TDC placed and removed at OSH via RIJ. Templine placed and treated with rocephin for blood cultures positive forfacklamia hominis. Discussed with ID, no need for IV abx after discharge.Planning for PO treatment only. Ladle Patcher: Maame Ribeiro CNP Procedure and Findings: The procedure was performed in the VIR suite following informed consent.The patient received fentanyl 25 mcg IV. 1% lidocaine with epi localanesthesia was used. With the patient in the supine position, the leftneck and upper chest were prepped and draped in the usual sterile fashion. The left internal jugular vein was evaluated by ultrasound and was foundto be widely patent, ultrasound images were permanently stored in PACS.Using ultrasound guidance, an appropriate skin entry site was identifiedand the left internal jugular vein was accessed using a 21-G needle. A0.018 inch guidewire was advanced into the IVC using fluoroscopicguidance. The access needle was exchanged for a 4-F stiff micropuncturecatheter. The 0.018 inch guidewire was used for measurement prior to itsremoval A 0.035 Amplatz guidewire was then advanced through the micropuncturecatheter into the IVC under fluoroscopy guidance to secure access. A site 1-2 cm below the inferior margin the clavicle was identified as thetunnel exit site. A small incision was made using a #11 blade and thecatheter was tunneled through the chest incision to the lateral neckdermatotomy. The catheter cuff was placed 1-2 cm inside the tunnel exitsite. The track was serially dilated to 14-F over the 0.035 Amplatz guidewire,and the peel-away sheath was placed. The hemodialysis catheter wasadvanced through the peel-away sheath after removal of guidewire andplaced into position. A fluoroscopic image was obtained which confirmed the tip of the catheterwas in the mid-right atrium. The catheter lumens aspirated and flushed freely. Each catheter lumen wasprimed with appropriate volumes of heparin 1000 units / mL. The left neckdermatotomy incision was closed with Dermabond. The catheter was securedwith suture and dressed in the usual fashion with biopatch and sterilecaps in place. There were no immediate complications. Fluoro time was 3.3 minutes. IMPRESSION: 1. Successful placement of a 27 cm tip-to-cuff, Tunneled Palindrome SilverIonhemodialysis catheter, via the left internal jugular vein. Plan: 1. Ready for immediate use 2. Consult IR when removal or exchange is indicated Report Verified by: Maame Ribeiro at 11/08/2023 2:45 PM EDT Kari Spear MD IMG IR ORDERABLES Final Resul t * (ABNORMAL) POC Glucose Monitoring Device (11/08/2023 8:55 AM EDT) POC Glucose Monitoring Device 144(H) 70 - 100 mg/dL 11/08/2023 8:55 AM EDT [facility] Blood 11/08/2023 8:55 AM EDT 11/08/2023 8:55 AM EDT Dino Hawkins MD POINT OF CARE TEST ORDERABLES F inal Result Performing Organization Address City/State/[facility] Co de Phone Number [facility] [address] * (ABNORMAL) Cyclosporine level (11/08/2023 8:22 AM EDT) Cyclosporine, LC/MS 44.4(L) 100.0 - 350.0 ng/mL 11/08/2023 1:54 PM EDT [facility] Comment:Performed via liquid chromatography tandem mass spectrometry. Detection limit: 20 ng/mL. Individual target concentrations may vary due to target organ and time after transplant. This test has been developed and its performance characteristics determined by [facility] which is certified under the Clinical Laboratory Improvement Amendment of 1988 (CLIA-88) to perform high complexity testing. The test has not been cleared or approved by the US Food and Drug Administration (FDA). The FDA has determined that such clearance is not necessary. The test should be used for clinical purposes and is not regarded as investigational. Whole Blood 11/08/2023 8:22 AM EDT 11/08/2023 8:47 AM EDT Narrative [facility] - 11/08/2023 1:54 PM EDT Please draw 30 minutes prior to AM medication dose Kari Spear MD LAB BLOOD ORDERABLES Final Re sult Performing Organization Address [facility] Co de Phone Number [facility] [address] [place] [address]. [address] * (ABNORMAL) POC Glucose Monitoring Device (11/08/2023 6:47 AM EDT) POC Glucose Monitoring Device 152(H) 70 - 100 mg/dL 11/08/2023 6:48 AM EDT [facility] Blood 11/08/2023 6:47 AM EDT 11/08/2023 6:47 AM EDT Dino Hawkins MD POINT OF CARE TEST ORDERABLES F inal Result Performing Organization Address [facility] Co de Phone Number [facility] [address] [place] [address]. [address] * (ABNORMAL) C-Reactive Protein (11/08/2023 6:38 AM EDT) CRP 85.5(H) 1.0 - 10.0 mg/L 11/08/2023 7:29 AM EDT [facility] Plasma 11/08/2023 6:38 AM EDT 11/08/2023 6:47 AM EDT Barrie Farah DO LAB BLOOD ORDERABLES Final Res ult Performing Organization Address [facility]/ZIP Co de Phone Number [facility] [address] * (ABNORMAL) Sed Rate (11/08/2023 6:38 AM EDT) Sed Rate 34(H) 0 - 15 mm/hr 11/08/2023 12:24 PM EDT [facility] Whole Blood 11/08/2023 6:38 AM EDT 11/08/2023 6:47 AM EDT Barrie Farah DO LAB BLOOD ORDERABLES Final Res ult Performing Organization Address [facility]/ZIP Co de Phone Number [facility] [address] * Hepatic Function Panel, AM (11/08/2023 6:38 AM EDT) Total Bilirubin 0.4 0.0 - 1.5 mg/dL 11/08/2023 7:29 AM EDT [facility] Bilirubin, Direct 0.14 0.00 - 0.40 mg/dL 11/08/2023 7:29 AM EDT [facility] AST 13 13 - 39 U/L 11/08/2023 7:29 AM EDT [facility] ALT 8 7 - 52 U/L 11/08/2023 7:29 AM EDT [facility] Alkaline Phosphatase 110 36 - 125 U/L 11/08/2023 7:29 AM EDT [facility] Total Protein 7.1 6.4 - 8.9 g/dL 11/08/2023 7:29 AM EDT [facility] Albumin 3.8 3.5 - 5.7 g/dL 11/08/2023 7:29 AM EDT [facility] Bilirubin, Indirect 0.26 0.00 - 1.10 mg/dL 11/08/2023 7:29 AM EDT [facility] Plasma 11/08/2023 6:38 AM EDT 11/08/2023 6:47 AM EDT Kari Spear MD LAB BLOOD ORDERABLES Final Re sult [facility] [address] * Magnesium, AM (11/08/2023 6:38 AM EDT) Magnesium 1.9 1.5 - 2.5 mg/dL 11/08/2023 7:29 AM EDT [facility] Plasma 11/08/2023 6:38 AM EDT 11/08/2023 6:47 AM EDT Kari Spear MD LAB BLOOD ORDERABLES Final Re sult [facility] [address] [place] [address], [facility] * (ABNORMAL) Renal Function Panel w/EGFR (11/08/2023 6:38 AM EDT) Sodium 139 133 - 146 mmol/L 11/08/2023 7:29 AM EDT [facility] Potassium 4.3 3.5 - 5.3 mmol/L 11/08/2023 7:29 AM EDT [facility] Chloride 103 98 - 110 mmol/L 11/08/2023 7:29 AM EDT [facility] CO2 25 21 - 33 mmol/L 11/08/2023 7:29 AM EDT [facility] Anion Gap 11 3 - 16 mmol/L 11/08/2023 7:29 AM EDT [facility] BUN 26(H) 7 - 25 mg/dL 11/08/2023 7:29 AM EDT [facility] Creatinine 7.29(H) 0.60 - 1.30 mg/dL 11/08/2023 7:29 AM EDT [facility] Glucose 156(H) 70 - 100 mg/dL 11/08/2023 7:29 AM EDT [facility] Calcium 9.3 8.6 - 10.3 mg/dL 11/08/2023 7:29 AM EDT [facility] Phosphorus 5.0(H) 2.1 - 4.7 mg/dL 11/08/2023 7:29 AM EDT [facility] Albumin 3.8 3.5 - 5.7 g/dL 11/08/2023 7:29 AM EDT [facility] Osmolality, Calculated 296 278 - 305 mOsm/kg 11/08/2023 7:29 AM EDT [facility] EGFR 9 11/08/2023 7:29 AM EDT [facility] Comment:As of 2021, the estimated [...] Disease. Am J Kidney Dis. 2020. Plasma 11/08/2023 6:38 AM EDT 11/08/2023 6:47 AM EDT us Kari Spear MD LAB BLOOD ORDERABLES Final Re sult [facility] [address] [facility]. [place] [id number], [facility] * (ABNORMAL) CBC, AM (11/08/2023 6:38 AM EDT) WBC 4.6 3.8 - 10.8 10E3/uL 11/08/2023 6:56 AM EDT [facility] RBC 2.92(L) 4.20 - 5.80 10E6/uL 11/08/2023 6:56 AM EDT [facility] Hemoglobin 9.4(L) 13.2 - 17.1 g/dL 11/08/2023 6:56 AM EDT [facility] Hematocrit 28.6(L) 38.5 - 50.0 % 11/08/2023 6:56 AM EDT [facility] MCV 98.0 80.0 - 100.0 fL 11/08/2023 6:56 AM EDT [facility] MCH 32.3 27.0 - 33.0 pg 11/08/2023 6:56 AM EDT [facility] MCHC 33.0 32.0 - 36.0 g/dL 11/08/2023 6:56 AM EDT [facility] RDW 15.2(H) 11.0 - 15.0 % 11/08/2023 6:56 AM EDT [facility] Platelets 335 140 - 400 10E3/uL 11/08/2023 6:56 AM EDT [facility] MPV 7.2(L) 7.5 - 11.5 fL 11/08/2023 6:56 AM EDT [facility] Whole Blood 11/08/2023 6:38 AM EDT 11/08/2023 6:47 AM EDT us Kari Spear MD LAB BLOOD ORDERABLES Final Re sult Performing Organization Address City/[facility]/ZIP Co de Phone Number [facility] [address] [facility]. [address] * Prepare RBC, leukoreduced (11/08/2023 12:07 AM EDT) Product Code L4995T81 [facility] Unit Number [id number] [facility] Dispense Status Released from Crossmatch[employer]RE [facility]LL Blood Expiration Date [facility] Coding System [id number] [facility] Product Code T5779L83 [facility] Unit Number [id number] [facility] Dispense Status Released from [employer]match[employer] [facility] Blood Expiration Date HCLL Coding System [id number] HCLL us Attending Provider Unknown BLOOD BANK PRODUCT OR DERABLES Final Result Performing Organization Address [facility] Co de Phone Number [facility] * (ABNORMAL) POC Glucose Monitoring Device (11/07/2023 8:02 PM EDT) POC Glucose Monitoring Device 229(H) 70 - 100 mg/dL 11/07/2023 8:02 PM EDT [facility] Blood 11/07/2023 8:02 PM EDT 11/07/2023 8:02 PM EDT us Dino Hawkins MD POINT OF CARE TEST ORDERABLES F inal Result Performing Organization Address [facility] Co de Phone Number [facility] [address] [facility]. [address] * (ABNORMAL) POC Glucose Monitoring Device (11/07/2023 5:22 PM EDT) [facility] POC Glucose Monitoring Device 204(H) 70 - 100 mg/dL 11/07/2023 5:23 PM EDT [facility] Blood 11/07/2023 5:22 PM EDT 11/07/2023 5:23 PM EDT us Dino Hawkins MD POINT OF CARE TEST ORDERABLES F inal Result [facility] [address] * Echo 2D Comp. w/Contrast (TTE) (11/07/2023 4:04 PM EDT) 11/07/2023 3:28 PM EDT Narrative [facility] - 11/07/2023 4:32 PM EDT ? * [facility]* ?[address] ?[place] [address] ?[phone] Transthoracic Echocardiogram Patient: ? Aiden Stauffer ?Room: ?? 8021 ? Height: 69in MR Number: ? [id number] ? : ?1975 Weight: 284lb Account: ? [id number] ? Gender: M ?BP: ? 106 / 70 Study Date: ?11/07/2023 ? Age: ?48 ? BSA: ?2.4m^2 Referring physician: ?Dmitry Molina Interpreting physician: Mohinder Miller FELLOW ? Gabino Prasad PERFORMING ?? Mohinder Miller TRUST[employer] OF ESTATE ??Amirah Bianchi [facility] ORDERING ? Dmitry Molina REFERRING ?Dmitry Molina CONSULTING ?? Jorge Goldberg ATTENDING ?Barrie Farah ADMITTING ?Dino Hawkins Procedure:ECHO 2D COMPLETE W/CONTRAST ?Order: Accession (TTE) ? Number:[id number] Indications: ?Bacteremia (R78.81). PMH: ?? Congestive heart failure. ??Primary pulmonary hypertension. ??Risk factors: ??Hypertension. Diabetes mellitus. Study data: ??Height: 69in. 175.3cm. Weight: 284lb. 128.8kg. Comparison was made to the study of 04/26/2022. ??Study status: ??Routine. ??Procedure: ??Image quality was suboptimal. The study was technically limited due to body habitus. ?Transthoracic echocardiogram. ??M-mode, complete 2D, complete spectral Doppler, and color Doppler. ??Birthdate: ??Patient birthdate: 1975. ??Age: ??Patient is 48year(s) old. ??Sex: ?? gender: male. ??Body mass index: ??BMI: 41.9kg/m^2. ??Body surface area: ?BSA: 2.4m^2. ??Blood pressure: ? 106/70 ??Patient status: ??Inpatient. ??Study date: ??Study date: 11/07/2023. Study time: 03:28 PM. ??Location: ??Echo laboratory. Study Conclusions - Left ventricle: The cavity size is normal. Wall thickness is normal. ??Systolic function is normal. The estimated ejection fraction is 55-60%. ??Although no diagnostic regional wall motion abnormality is identified, ??this possibility cannot be completely excluded on the basis of this study. - Right ventricle: The cavity size is moderately dilated. Systolic function ??is reduced by visual assessment. Impressions: ??Very technically difficult study. Probably no atrial level shunt. Valves are not well visualized. Cannot compare with previous report. Cardiac Anatomy Left ventricle: - The cavity size is normal. Wall thickness is normal. Systolic function is ??normal. The estimated ejection fraction is 55-60%. Although no diagnostic ??regional wall motion abnormality is identified, this possibility cannot be ??completely excluded on the basis of this study. Aorta: Aortic root: The root is poorly visualized. Aortic valve: - Poorly visualized. Trileaflet The mean systolic gradient is 10mm Hg. The ??peak systolic gradient is 19mm Hg. Mitral valve: - Poorly visualized. Mobility is not restricted. The peak diastolic gradient ??is 5mm Hg. The valve area by pressure half-time is 3.6cm^2. The valve area ??index by pressure half-time is 1.5cm^2/m^2. Left atrium: ??Poorly visualized. Pulmonary artery: - Systolic pressure could not be accurately estimated. Main pulmonary artery: - Right ventricle: - Poorly visualized. The cavity size is moderately dilated. Systolic ??function is reduced by visual assessment. Pulmonic valve: - Not well visualized. There is no evidence for stenosis. There is no ??significant regurgitation. Tricuspid valve: - Mobility is unrestricted. There is trivial regurgitation. Right atrium: ??Poorly visualized. Systemic veins: Inferior vena cava: Measurements Left ventricle ?Value ?Ref GINA, LAX ?(L) 4.1 ?? cm ? 4.2 - 5.8 ESD, LAX ?(N) 3.2 ?? cm ? 2.5 - 4.0 GINA/bsa, LAX ?(L) 1.7 ?? cm/m^2 ?? 2.2 - 3.0 ESD/bsa, LAX ?(N) 1.3 ?? cm/m^2 ?? 1.3 - 2.1 FS, LAX ? (L) 21 ?% ?25 - 43 FS, LAX chord ? (L) 21 ?% ?25 - 43 IVS, ED ? (N) 0.9 ?? cm ? 0.6 - 1.0 ESD ? (N) 3.2 ?? cm ? 2.5 - 4.0 ESD/bsa ? (N) 1.3 ?? cm/m^2 ?? 1.3 - 2.1 PW, ED ?(N) 0.9 ?? cm ? 0.6 - 1.0 IVS/PW, ED ?1.01 ? --------- EDV ? (N) 73 ?ml ? 62 - 150 ESV ? (N) 41 ?ml ? 21 - 61 EF ?(L) 43 ?% ?52 - 72 EDV/bsa ? (L) 30 ?ml/m^2 ?? 34 - 74 ESV/bsa ? (N) 17 ?ml/m^2 ?? 11 - 31 SV, 1-p A2C ? 31 ?ml ? --------- SV/bsa, 1-p A2C ? 13 ?ml/m^2 ?? --------- SV, 1-p A4C ? 34 ?ml ? --------- SV/bsa, 1-p A4C ? 14 ?ml/m^2 ?? --------- E', lat jennifer, TDI ?(L) 9.4 ?? cm/sec ?? >=10.0 E/e', lat jennifer, TDI ?(N) 12 ? <=13 A', lat jennifer, TDI ?9.6 ?? cm/sec ?? --------- E'/a', lat jennifer, TDI ? 0.98 ? --------- S', lat jennifer, TDI ?8.3 ?? cm/sec ?? --------- E', med jennifer, TDI ?(L) 6.4 ?? cm/sec ?? >=7.0 E/e', med jennifer, TDI ?17 ? --------- A', med jennifer, TDI ?7.5 ?? cm/sec ?? --------- E'/a', med jennifer, TDI ? 0.85 ? --------- S', med jennifer, TDI ?8.4 ?? cm/sec ?? --------- E', avg, TDI ?7.9 ?? cm/sec ?? --------- E/e', avg, TDI ?(N) 14 ? <=14 Right ventricle ? Value ?Ref TAPSE, MM ? (N) 2.1 ?? cm ? >=1.7 S' lateral ?(N) 11.6 ??cm/sec ?? >=9.5 RVOT ?Value ?Ref Peak v, S ? 0.91 ??m/sec ?--------- Mean v, S ? 0.66 ??m/sec ?--------- Left atrium ? Value ?Ref AP dim, ES ?(N) 3.7 ?? cm ? 3.0 - 4.0 AP dim index, ES ?(N) 1.5 ?? cm/m^2 ?? 1.5 - 2.3 Aortic valve ?Value ?Ref Peak v, S ? 2.2 ?? m/sec ?--------- Mean v, S ? 1.44 ??m/sec ?--------- Mean grad, S ?10 ?mm Hg ?--------- Peak grad, S ?19 ?mm Hg ?--------- Mitral valve ?Value ?Ref Peak E ?1.1 ?? m/sec ?--------- Peak A ?1.03 ??m/sec ?--------- Decel slope ? 535 ?? cm/s^2 ?? --------- Decel time ?207 ?? ms ? --------- PHT ? 61 ?ms ? --------- Peak grad, D ?5 ? mm Hg ?--------- Peak E/A ratio ?1.1 ?--------- MVA, PHT ?3.6 ?? cm^2 ? --------- MVA/bsa, PHT ?1.5 ?? cm^2/m^2 --------- Pulmonic valve ?Value ?Ref Peak v, S ? 1.3 ?? m/sec ?--------- Mean cesilia, S ? 0.88 ??m/sec ?--------- Tricuspid valve ? Value ?Ref TR peak v ? (H) 3.1 ?? m/sec ?<=2.8 Peak RV-RA grad, S ?39 ?mm Hg ?--------- Aortic root ? Value ?Ref Root diam ? (N) 3.0 ?? cm ? 3.0 - 4.4 Root diam/bsa ? 1.3 ?? cm/m^2 ?? --------- Main pulmonary artery ? Value ?Ref Mean grad ? 4 ? mm Hg ?--------- Inferior vena cava ?Value ?Ref Diam ?(N) 1.8 ?? cm ? <=2.1 Legend: (L) ??and ??(H) ??krunal values outside specified reference range. (N) ??moran values inside specified reference range. I personally reviewed the images and agree with the interpretation of the resident. ?Reviewed and confirmed by Mohinder Miller [id number] Procedure Note Mohinder Miller MD - 11/07/2023 * [facility]* [address] [place] [id number] Transthoracic Echocardiogram Patient: Aiden Stauffer Room: 8021 Height: 69in MR Number: [id number] : 1975 Weight: 284lb Account: [id number] Gender: M BP: 106 / 70 Study Date: 11/07/2023 Age: 48 BSA: 2.4m^2 Referring physician: Dmitry Molina Interpreting physician: Mohinder Miller FELLOW Gabino Prasad PERFORMING Mohinder Miller TRUSTEE OF ESTATE Amirah Bianchi, [facility] ORDERING Tersigni, Dmitry REFERRING Tracy Dmitry CONSULTING Jorge Goldberg ATTENDING Barrie Farah ADMITTING Dino Hawkins Procedure:ECHO 2D COMPLETE W/CONTRAST Order: Accession (TTE) Number:[id number] Indications: Bacteremia (R78.81). PMH: Congestive heart failure. Primary pulmonary hypertension. Risk factors: Hypertension. Diabetes mellitus. Study data: Height: 69in. 175.3cm. Weight: 284lb. 128.8kg. Comparisonwas made to the study of 04/26/2022. Study status: Routine. Procedure:Image quality was suboptimal. The study was technically limited due to body habitus. Transthoracic echocardiogram. M-mode, complete 2D, complete spectral Doppler, and color Doppler. Birthdate: Patient birthdate: 1975. Age: Patient is 48year(s) old. Sex: Birthgender: male. Body mass index: BMI: 41.9kg/m^2. Body surface area: BSA: 2.4m^2. Blood pressure: 106/70 Patient status: Inpatient. Study date: Study date: 11/07/2023. Study time: 03:28 PM. Location: Echo laboratory. Study Conclusions - Left ventricle: The cavity size is normal. Wall thickness is normal. Systolic function is normal. The estimated ejection fraction is55-60%. Although no diagnostic regional wall motion abnormality is identified, this possibility cannot be completely excluded on the basis of thisstudy. - Right ventricle: The cavity size is moderately dilated. Systolicfunction is reduced by visual assessment. Impressions: Very technically difficult study. Probably no atrial level shunt. Valves are not well visualized. Cannot compare with previousreport. Cardiac Anatomy Left ventricle: - The cavity size is normal. Wall thickness is normal. Systolic functionis normal. The estimated ejection fraction is 55-60%. Although nodiagnostic regional wall motion abnormality is identified, this possibility cannotbe completely excluded on the basis of this study. Aorta: Aortic root: The root is poorly visualized. Aortic valve: - Poorly visualized. Trileaflet The mean systolic gradient is 10mm Hg.The peak systolic gradient is 19mm Hg. Mitral valve: - Poorly visualized. Mobility is not restricted. The peak diastolicgradient is 5mm Hg. The valve area by pressure half-time is 3.6cm^2. The valvearea index by pressure half-time is 1.5cm^2/m^2. Left atrium: Poorly visualized. Pulmonary artery: - Systolic pressure could not be accurately estimated. Main pulmonary artery: - Right ventricle: - Poorly visualized. The cavity size is moderately dilated. Systolic function is reduced by visual assessment. Pulmonic valve: - Not well visualized. There is no evidence for stenosis. There is no significant regurgitation. Tricuspid valve: - Mobility is unrestricted. There is trivial regurgitation. Right atrium: Poorly visualized. Systemic veins: Inferior vena cava: Measurements Left ventricle Value Ref GINA, LAX (L) 4.1 cm 4.2 - 5.8 ESD, LAX (N) 3.2 cm 2.5 - 4.0 GINA/bsa, LAX (L) 1.7 cm/m^2 2.2 - 3.0 ESD/bsa, LAX (N) 1.3 cm/m^2 1.3 - 2.1 FS, LAX (L) 21 % 25 - 43 FS, LAX chord (L) 21 % 25 - 43 IVS, ED (N) 0.9 cm 0.6 - 1.0 ESD (N) 3.2 cm 2.5 - 4.0 ESD/bsa (N) 1.3 cm/m^2 1.3 - 2.1 PW, ED (N) 0.9 cm 0.6 - 1.0 IVS/PW, ED 1.01 --------- EDV (N) 73 ml 62 - 150 ESV (N) 41 ml 21 - 61 EF (L) 43 % 52 - 72 EDV/bsa (L) 30 ml/m^2 34 - 74 ESV/bsa (N) 17 ml/m^2 11 - 31 SV, 1-p A2C 31 ml --------- SV/bsa, 1-p A2C 13 ml/m^2 --------- SV, 1-p A4C 34 ml --------- SV/bsa, 1-p A4C 14 ml/m^2 --------- E', lat jennifer, TDI (L) 9.4 cm/sec >=10.0 E/e', lat jennifer, TDI (N) 12 <=13 A', lat jennifer, TDI 9.6 cm/sec --------- E'/a', lat jennifer, TDI 0.98 --------- S', lat jennifer, TDI 8.3 cm/sec --------- E', med jennifer, TDI (L) 6.4 cm/sec >=7.0 E/e', med jennifer, TDI 17 --------- A', med jennifer, TDI 7.5 cm/sec --------- E'/a', med jennifer, TDI 0.85 --------- S', med jennifer, TDI 8.4 cm/sec --------- E', avg, TDI 7.9 cm/sec --------- E/e', avg, TDI (N) 14 <=14 Right ventricle Value Ref TAPSE, MM (N) 2.1 cm >=1.7 S' lateral (N) 11.6 cm/sec >=9.5 RVOT Value Ref Peak v, S 0.91 m/sec --------- Mean v, S 0.66 m/sec --------- Left atrium Value Ref AP dim, ES (N) 3.7 cm 3.0 - 4.0 AP dim index, ES (N) 1.5 cm/m^2 1.5 - 2.3 Aortic valve Value Ref Peak v, S 2.2 m/sec --------- Mean v, S 1.44 m/sec --------- Mean grad, S 10 mm Hg --------- Peak grad, S 19 mm Hg --------- Mitral valve Value Ref Peak E 1.1 m/sec --------- Peak A 1.03 m/sec --------- Decel slope 535 cm/s^2 --------- Decel time 207 ms --------- PHT 61 ms --------- Peak grad, D 5 mm Hg --------- Peak E/A ratio 1.1 --------- MVA, PHT 3.6 cm^2 --------- MVA/bsa, PHT 1.5 cm^2/m^2 --------- Pulmonic valve Value Ref Peak v, S 1.3 m/sec --------- Mean cesilia, S 0.88 m/sec --------- Tricuspid valve Value Ref TR peak v (H) 3.1 m/sec <=2.8 Peak RV-RA grad, S 39 mm Hg --------- Aortic root Value Ref Root diam (N) 3.0 cm 3.0 - 4.4 Root diam/bsa 1.3 cm/m^2 --------- Main pulmonary artery Value Ref Mean grad 4 mm Hg --------- Inferior vena cava Value Ref Diam (N) 1.8 cm <=2.1 Legend: (L) and (H) krunal values outside specified reference range. (N) moran values inside specified reference range. I personally reviewed the images and agree with the interpretation ofthe resident. Reviewed and confirmed by Mohinder Miller [id number] us Dmitry Molina DO CV ECHO ORDERABLES Final Resu lt [facility] * US Extremity Non-Vas Comp Left (11/07/2023 3:10 PM EDT) Anatomical Region Laterality Modality Arm, Leg Ultrasound 11/07/2023 2:46 PM EDT Impressions 11/07/2023 4:15 PM EDT IMPRESSION: Clotted AV fistula at the site of pain in the anterior upper arm. No soft tissue edema or organized fluid collections. Approved by Hany Roach MD on 11/07/2023 3:23 PM EDT I have personally reviewed the images and I agree with this report. Report Verified by: Hany Davila MD at 11/07/2023 4:15 PM EDT Narrative 11/07/2023 4:15 PM EDT EXAM: US JOINT COMPLETE LEFT INDICATION: ??assess for infection of AVF of left arm COMPARISON: ??None TECHNIQUE: Grayscale sonographic imaging acquisition of the left upper arm was performed. FINDINGS: Clotted AV fistula with no internal vascularity. There is no soft tissue edema or organized fluid collections within the adjacent soft tissues.. Procedure Note Hany Davila MD - 11/07/2023 EXAM: US JOINT COMPLETE LEFT INDICATION: assess for infection of AVF of left arm COMPARISON: None TECHNIQUE: Grayscale sonographic imaging acquisition of the left upper armwas performed. FINDINGS: Clotted AV fistula with no internal vascularity. There is no soft tissueedema or organized fluid collections within the adjacent soft tissues.. IMPRESSION: Clotted AV fistula at the site of pain in the anterior upper arm. No softtissue edema or organized fluid collections. Approved by Hany Roach MD on 11/07/2023 3:23 PM EDT I have personally reviewed the images and I agree with this report. Report Verified by: Hnay Davila MD at 11/07/2023 4:15 PM EDT us Kari Kippler MD [facility] [place] ORDERABLES Final Resul t * (ABNORMAL) Cyclosporine level (11/07/2023 10:50 AM EDT) Pathologist [facility] Cyclosporine, LC/MS 98.4(L) 100.0 - 350.0 ng/mL 11/07/2023 2:19 PM EDT [facility] Comment:Performed via liquid chromatography tandem mass spectrometry. Detection limit: 20 ng/mL. Individual target concentrations may vary due to target organ and time after transplant. This test has been developed and its performance characteristics determined by [facility] which is certified under the Clinical Laboratory Improvement Amendment of 1988 (CLIA-88) to perform high complexity testing. The test has not been cleared or approved by the US Food and Drug Administration (FDA). The FDA has determined that such clearance is not necessary. The test should be used for clinical purposes and is not regarded as investigational. Whole Blood 11/07/2023 10:5 0 AM EDT 11/07/2023 10:50 AM EDT [facility] - 11/07/2023 2:19 PM EDT Please obtain 30 minutes prior to medication administration Kari Spear MD LAB BLOOD ORDERABLES Final Re sult [facility] [address] [place] [id number], [facility] * (ABNORMAL) Hepatic Function Panel, AM (11/07/2023 10:50 AM EDT) Pathologist [facility] Total Bilirubin 0.4 0.0 - 1.5 mg/dL 11/07/2023 11:27 AM EDT [facility] Bilirubin, Direct 0.06 0.00 - 0.40 mg/dL 11/07/2023 11:27 AM EDT [facility] AST 12(L) 13 - 39 U/L 11/07/2023 11:27 AM EDT [facility] ALT 9 7 - 52 U/L 11/07/2023 11:27 AM EDT [facility] Alkaline Phosphatase 108 36 - 125 U/L 11/07/2023 11:27 AM EDT [facility] Total Protein 7.4 6.4 - 8.9 g/dL 11/07/2023 11:27 AM EDT [facility] Albumin 3.9 3.5 - 5.7 g/dL 11/07/2023 11:27 AM EDT [facility] Bilirubin, Indirect 0.34 0.00 - 1.10 mg/dL 11/07/2023 11:27 AM EDT [facility] Plasma 11/07/2023 10:5 0 AM EDT 11/07/2023 10:50 AM EDT Kari Spear MD LAB BLOOD ORDERABLES Final Re sult Performing Organization Address City/[facility]/ZIP Co de Phone Number [facility] [address] [facility]. [address] * Magnesium, AM (11/07/2023 10:50 AM EDT) Magnesium 1.9 1.5 - 2.5 mg/dL 11/07/2023 11:27 AM EDT [facility] Plasma 11/07/2023 10:5 0 AM EDT 11/07/2023 10:50 AM EDT Kari Spear MD LAB BLOOD ORDERABLES Final Re sult [facility] [address] [facility]. [address] * (ABNORMAL) Renal Function Panel w/EGFR (11/07/2023 10:50 AM EDT) Sodium 137 133 - 146 mmol/L 11/07/2023 11:27 AM EDT [facility] Potassium 4.8 3.5 - 5.3 mmol/L 11/07/2023 11:27 AM EDT [facility] Chloride 99 98 - 110 mmol/L 11/07/2023 11:27 AM EDT [facility] CO2 25 21 - 33 mmol/L 11/07/2023 11:27 AM EDT [facility] Anion Gap 13 3 - 16 mmol/L 11/07/2023 11:27 AM EDT [facility] BUN 33(H) 7 - 25 mg/dL 11/07/2023 11:27 AM EDT [facility] Creatinine 8.87(H) 0.60 - 1.30 mg/dL 11/07/2023 11:27 AM EDT [facility] Glucose 206(H) 70 - 100 mg/dL 11/07/2023 11:27 AM EDT [facility] Calcium 9.0 8.6 - 10.3 mg/dL 11/07/2023 11:27 AM EDT [facility] Phosphorus 4.9(H) 2.1 - 4.7 mg/dL 11/07/2023 11:27 AM EDT [facility] Albumin 3.9 3.5 - 5.7 g/dL 11/07/2023 11:27 AM EDT [facility] Osmolality, Calculated 297 278 - 305 mOsm/kg 11/07/2023 11:27 AM EDT [facility] EGFR 7 11/07/2023 11:27 AM EDT [facility] Comment:As of 2021, the estimated [...] Disease. Am J Kidney Dis. 2020. Plasma 11/07/2023 10:5 0 AM EDT 11/07/2023 10:50 AM EDT us Kari Spear MD LAB BLOOD ORDERABLES Final Re sult [facility] [address] [facility] [place] [address], [facility] * (ABNORMAL) CBC, AM (11/07/2023 10:50 AM EDT) WBC 6.4 3.8 - 10.8 10E3/uL 11/07/2023 10:57 AM EDT [facility] RBC 2.89(L) 4.20 - 5.80 10E6/uL 11/07/2023 10:57 AM EDT [facility] Hemoglobin 9.5(L) 13.2 - 17.1 g/dL 11/07/2023 10:57 AM EDT [facility] Hematocrit 28.5(L) 38.5 - 50.0 % 11/07/2023 10:57 AM EDT [facility] MCV 98.6 80.0 - 100.0 fL 11/07/2023 10:57 AM EDT [facility] MCH 32.9 27.0 - 33.0 pg 11/07/2023 10:57 AM EDT [facility] MCHC 33.4 32.0 - 36.0 g/dL 11/07/2023 10:57 AM EDT [facility] RDW 15.4(H) 11.0 - 15.0 % 11/07/2023 10:57 AM EDT [facility] Platelets 344 140 - 400 10E3/uL 11/07/2023 10:57 AM EDT [facility] MPV 7.6 7.5 - 11.5 fL 11/07/2023 10:57 AM EDT [facility] Whole Blood 11/07/2023 10:5 0 AM EDT 11/07/2023 10:50 AM EDT us Kari Spear MD LAB BLOOD ORDERABLES Final Re sult [facility] [address] [place] [address], [facility] * (ABNORMAL) POC Glucose Monitoring Device (11/07/2023 7:50 AM EDT) POC Glucose Monitoring Device 268(H) 70 - 100 mg/dL 11/07/2023 7:52 AM EDT [facility] Blood 11/07/2023 7:50 AM EDT 11/07/2023 7:51 AM EDT us Dino Hawkins MD POINT OF CARE TEST ORDERABLES F inal Result Performing Organization Address [facility] Co de Phone Number [facility] [address] [facility]. [address] * (ABNORMAL) POC Glucose Monitoring Device (11/06/2023 6:25 PM EDT) POC Glucose Monitoring Device 137(H) 70 - 100 mg/dL 11/06/2023 6:26 PM EDT [facility] Blood 11/06/2023 6:25 PM EDT 11/06/2023 6:26 PM EDT us Dino Hawkins MD POINT OF CARE TEST ORDERABLES F inal Result Performing Organization Address [facility] Co de Phone Number [facility] [address] [facility]. [address] * (ABNORMAL) POC Glucose Monitoring Device (11/06/2023 12:26 PM EDT) POC Glucose Monitoring Device 145(H) 70 - 100 mg/dL 11/06/2023 12:27 PM EDT [facility] Blood 11/06/2023 12:2 6 PM EDT 11/06/2023 12:27 PM EDT us Dino Hawkins MD POINT OF CARE TEST ORDERABLES F inal Result Performing Organization Address [facility] Co de Phone Number [facility] [address] [facility]. [address] * (ABNORMAL) CMV IgM Antibody (11/06/2023 9:48 AM EDT) CMV IgM Positive( A) Negative 11/06/2023 11:27 AM EDT [facility] Comment:Result indicates the presence of detectable CMV IgM antibodies. A Positive result is generally indicative of acute infection, reactivation or persistent IgM production. CMV IGM NUM 83.30(H) 0.00 - 29.99 AU/mL 11/06/2023 11:27 AM EDT [facility] Serum 11/06/2023 9:48 AM EDT 11/06/2023 10:06 AM EDT Kari Spear MD LAB BLOOD ORDERABLES Final Re sult Performing Organization Address City/[facility]/ZIP Co de Phone Number [facility] [address] [facility]. [address] * (ABNORMAL) CMV IgG Antibody (11/06/2023 9:48 AM EDT) CMV IgG Positive(A ) Negative 11/06/2023 11:15 AM EDT [facility] CMV IGG NUM >10.00(H) 0.00 - 0.59 U/mL 11/06/2023 11:15 AM EDT [facility] Serum 11/06/2023 9:48 AM EDT 11/06/2023 10:06 AM EDT Kari Spear MD LAB BLOOD ORDERABLES Final Re sult Performing Organization Address [facility]/ZIP Co de Phone Number [facility] [address] [facility]. [address] * (ABNORMAL) POC Glucose Monitoring Device (11/06/2023 8:22 AM EDT) Pathologist [facility] POC Glucose Monitoring Device 182(H) 70 - 100 mg/dL 11/06/2023 8:23 AM EDT [facility] Blood 11/06/2023 8:22 AM EDT 11/06/2023 8:23 AM EDT Dino Hawkins MD POINT OF CARE TEST ORDERABLES F inal Result [facility] [address] [facility]. [address] * (ABNORMAL) Hepatic Function Panel (11/06/2023 8:07 AM EDT) Total Bilirubin 0.4 0.0 - 1.5 mg/dL 11/06/2023 9:12 AM EDT [facility] Bilirubin, Direct 0.05 0.00 - 0.40 mg/dL 11/06/2023 9:12 AM EDT [facility] AST 12(L) 13 - 39 U/L 11/06/2023 9:12 AM EDT [facility] ALT 10 7 - 52 U/L 11/06/2023 9:12 AM EDT [facility] Alkaline Phosphatase 109 36 - 125 U/L 11/06/2023 9:12 AM EDT [facility] Total Protein 7.1 6.4 - 8.9 g/dL 11/06/2023 9:12 AM EDT [facility] Albumin 3.9 3.5 - 5.7 g/dL 11/06/2023 9:12 AM EDT [facility] Bilirubin, Indirect 0.35 0.00 - 1.10 mg/dL 11/06/2023 9:12 AM EDT [facility] Plasma 11/06/2023 8:07 AM EDT 11/06/2023 8:22 AM EDT us Kari Spear MD LAB BLOOD ORDERABLES Final Re sult [facility] [address] [place] [address], [facility] * (ABNORMAL) Cyclosporine level (11/06/2023 8:07 AM EDT) Cyclosporine, LC/MS 55.4(L) 100.0 - 350.0 ng/mL 11/06/2023 1:42 PM EDT [facility] Comment:Performed via liquid chromatography tandem mass spectrometry. Detection limit: 20 ng/mL. Individual target concentrations may vary due to target organ and time after transplant. This test has been developed and its performance characteristics determined by [facility] which is certified under the Clinical Laboratory Improvement Amendment of 1988 (CLIA-88) to perform high complexity testing. The test has not been cleared or approved by the US Food and Drug Administration (FDA). The FDA has determined that such clearance is not necessary. The test should be used for clinical purposes and is not regarded as investigational. Whole Blood 11/06/2023 8:07 AM EDT 11/06/2023 8:22 AM EDT Kari Spear MD LAB BLOOD ORDERABLES Final Re sult [facility] [address] [place] [address], [facility] * (ABNORMAL) Differential (11/06/2023 4:47 AM EDT) Differential Comments See Note 11/06/2023 5:55 AM EDT [facility] Comment: _Platelets Appear Adequate _Platelet Morphology Normal Myelocytes Relative 8.0(H) 0.0 - 0.0 % 11/06/2023 5:55 AM EDT [facility] Metamyelocytes Relative 1.0(H) 0.0 - 0.0 % 11/06/2023 5:55 AM EDT [facility] Neutrophils Relative 47.0 40.0 - 80.0 % 11/06/2023 5:55 AM EDT [facility] Lymphocytes Relative 29.0 15.0 - 45.0 % 11/06/2023 5:55 AM EDT [facility] Monocytes Relative 5.0 0.0 - 12.0 % 11/06/2023 5:55 AM EDT [facility] Eosinophils Relative 9.0(H) 0.0 - 8.0 % 11/06/2023 5:55 AM EDT [facility] Basophils Relative 1.0 0.0 - 1.0 % 11/06/2023 5:55 AM EDT [facility] Neutrophils Absolute 2,632 1,500 - 7,800 /uL 11/06/2023 5:55 AM EDT [facility] Metamyelocytes Absolute 56(H) 0 - 0 /uL 11/06/2023 5:55 AM EDT [facility] Myelocytes Absolute 448(H) 0 - 0 /uL 11/06/2023 5:55 AM EDT [facility] Lymphocytes Absolute 1,624 850 - 3,900 /uL 11/06/2023 5:55 AM EDT [facility] Monocytes Absolute 280 200 - 950 /uL 11/06/2023 5:55 AM EDT [facility] Eosinophils Absolute 504(H) 15 - 500 /uL 11/06/2023 5:55 AM EDT [facility] Basophils Absolute 56 0 - 200 /uL 11/06/2023 5:55 AM EDT [facility] PLT Morphology Platelet morphology appears normal 11/06/2023 5:55 AM EDT [facility] Whole Blood 11/06/2023 4:47 AM EDT 11/06/2023 4:52 AM EDT Narrative [facility] - 11/06/2023 5:55 AM EDT Manual WBC differential performed per review criteria approved by the medical examiner. us Marina Cunha DO LAB BLOOD ORDERABLES Final Res ult [facility] [address] * (ABNORMAL) Renal Function Panel w/EGFR (11/06/2023 4:47 AM EDT) Sodium 137 133 - 146 mmol/L 11/06/2023 5:32 AM EDT [facility] Potassium 5.4(H) 3.5 - 5.3 mmol/L 11/06/2023 5:32 AM EDT [facility] Chloride 103 98 - 110 mmol/L 11/06/2023 5:32 AM EDT [facility] CO2 22 21 - 33 mmol/L 11/06/2023 5:32 AM EDT [facility] Anion Gap 12 3 - 16 mmol/L 11/06/2023 5:32 AM EDT [facility] BUN 41(H) 7 - 25 mg/dL 11/06/2023 5:32 AM EDT [facility] Creatinine 10.36(H) 0.60 - 1.30 mg/dL 11/06/2023 5:32 AM EDT [facility] Glucose 182(H) 70 - 100 mg/dL 11/06/2023 5:32 AM EDT [facility] Calcium 9.0 8.6 - 10.3 mg/dL 11/06/2023 5:32 AM EDT [facility] Phosphorus 7.4(H) 2.1 - 4.7 mg/dL 11/06/2023 5:32 AM EDT [facility] Albumin 3.8 3.5 - 5.7 g/dL 11/06/2023 5:32 AM EDT [facility] Osmolality, Calculated 299 278 - 305 mOsm/kg 11/06/2023 5:32 AM EDT [facility] EGFR 6 11/06/2023 5:32 AM EDT [facility] Comment:As of 2021, the estimated [...] Disease. Am J Kidney Dis. 2020. Plasma 11/06/2023 4:47 AM EDT 11/06/2023 4:52 AM EDT [facility] BLOOD ORDERABLES Final Res ult Performing Organization Address [facility] Co de Phone Number [facility] [address] [facility]. [address] * Magnesium (11/06/2023 4:47 AM EDT) Magnesium 2.0 1.5 - 2.5 mg/dL 11/06/2023 5:32 AM EDT [facility] Plasma 11/06/2023 4:47 AM EDT 11/06/2023 4:52 AM EDT [facility] BLOOD ORDERABLES Final Res ult Performing Organization Address [facility] Co de Phone Number [facility] [address] [facility]. [address] * (ABNORMAL) CBC (11/06/2023 4:47 AM EDT) WBC 5.6 3.8 - 10.8 10E3/uL 11/06/2023 5:02 AM EDT [facility] RBC 2.78(L) 4.20 - 5.80 10E6/uL 11/06/2023 5:02 AM EDT [facility] Hemoglobin 9.3(L) 13.2 - 17.1 g/dL 11/06/2023 5:02 AM EDT [facility] Hematocrit 27.7(L) 38.5 - 50.0 % 11/06/2023 5:02 AM EDT [facility] MCV 99.6 80.0 - 100.0 fL 11/06/2023 5:02 AM EDT [facility] MCH 33.3(H) 27.0 - 33.0 pg 11/06/2023 5:02 AM EDT [facility] MCHC 33.4 32.0 - 36.0 g/dL 11/06/2023 5:02 AM EDT [facility] RDW 15.1(H) 11.0 - 15.0 % 11/06/2023 5:02 AM EDT [facility] Platelets 302 140 - 400 10E3/uL 11/06/2023 5:02 AM EDT [facility] MPV 7.8 7.5 - 11.5 fL 11/06/2023 5:02 AM EDT [facility] Whole Blood 11/06/2023 4:47 AM EDT 11/06/2023 4:52 AM EDT us Marina Cunha DO LAB BLOOD ORDERABLES Final Res ult [facility] [address] * Clostridium difficile DNA Amplification (11/06/2023 12:10 AM EDT) Clost. Diff DNA Amp. Negative Negative 11/06/2023 10:01 PM EDT [facility] Comment:Positive indicates t oxigenic C. difficile was detected in the sample. Negative indicates that toxigenic C. difficile was not detected above the limit of the detection of the assay. The test methodology is a FDA approved DNA amplification assay. Stool, Liquid FECES / Unknown 11/06/2023 12:10 AM EDT 11/06/2023 1:04 AM EDT Comment:F Terry Cruz DO BODY FLUIDS AND STOOLS ORDER ASHISH Final Result Performing Organization Address [facility] Co de Phone Number [facility] [address] [place] [address]. [address] * (ABNORMAL) POC Glucose Monitoring Device (11/05/2023 7:46 PM EDT) [facility] POC Glucose Monitoring Device 201(H) 70 - 100 mg/dL 11/05/2023 7:47 PM EDT [facility] Blood 11/05/2023 7:46 PM EDT 11/05/2023 7:47 PM EDT Dino Hawkins MD POINT OF CARE TEST ORDERABLES F inal Result Performing Organization Address [facility] de Phone Number [facility] [address] [place] [address]. [address] * (ABNORMAL) Cyclosporine level (11/05/2023 5:56 PM EDT) Pathologist [facility] Cyclosporine, LC/MS 22.0(L) 100.0 - 350.0 ng/mL 11/06/2023 9:29 AM EDT [facility] Comment:Performed via liquid chromatography tandem mass spectrometry. Detection limit: 20 ng/mL. Individual target concentrations may vary due to target organ and time after transplant. This test has been developed and its performance characteristics determined by [facility] which is certified under the Clinical Laboratory Improvement Amendment of 1988 (CLIA-88) to perform high complexity testing. The test has not been cleared or approved by the US Food and Drug Administration (FDA). The FDA has determined that such clearance is not necessary. The test should be used for clinical purposes and is not regarded as investigational. Whole Blood 11/05/2023 5:56 PM EDT 11/05/2023 6:48 PM EDT Shalom Guerrero MD LAB BLOOD ORDERABLES Final Re sult Performing Organization Address [facility]/ZIP Co de Phone Number [facility] [address] [facility]. [address] * (ABNORMAL) POC Glucose Monitoring Device (11/05/2023 4:59 PM EDT) POC Glucose Monitoring Device 203(H) 70 - 100 mg/dL 11/05/2023 4:59 PM EDT [facility] Blood 11/05/2023 4:59 PM EDT 11/05/2023 4:59 PM EDT Dino Hawkins MD POINT OF CARE TEST ORDERABLES F inal Result Performing Organization Address [facility] Co de Phone Number [facility] [address] [facility]. [address] * POC Glucose Monitoring Device (11/05/2023 1:31 PM EDT) POC Glucose Monitoring Device 94 70 - 100 mg/dL 11/05/2023 1:31 PM EDT [facility] Blood 11/05/2023 1:31 PM EDT 11/05/2023 1:31 PM EDT Dino Hawkins MD POINT OF CARE TEST ORDERABLES F inal Result Performing Organization Address City/[facility]/ZIP Co de Phone Number [facility] [address] [facility]. [address] * Magnesium (11/05/2023 8:01 AM EDT) Magnesium 1.9 1.5 - 2.5 mg/dL 11/05/2023 8:49 AM EDT [facility] Plasma 11/05/2023 8:01 AM EDT 11/05/2023 8:11 AM EDT us Terry Cruz DO LAB BLOOD ORDERABLES Final R esult [facility] [address] [place] [address], [facility] * (ABNORMAL) Renal Function Panel w/EGFR (11/05/2023 8:01 AM EDT) Sodium 139 133 - 146 mmol/L 11/05/2023 8:49 AM EDT [facility] Potassium 4.3 3.5 - 5.3 mmol/L 11/05/2023 8:49 AM EDT [facility] Chloride 102 98 - 110 mmol/L 11/05/2023 8:49 AM EDT [facility] CO2 23 21 - 33 mmol/L 11/05/2023 8:49 AM EDT [facility] Anion Gap 14 3 - 16 mmol/L 11/05/2023 8:49 AM EDT [facility] BUN 32(H) 7 - 25 mg/dL 11/05/2023 8:49 AM EDT [facility] Creatinine 8.07(H) 0.60 - 1.30 mg/dL 11/05/2023 8:49 AM EDT [facility] Glucose 104(H) 70 - 100 mg/dL 11/05/2023 8:49 AM EDT [facility] Calcium 9.1 8.6 - 10.3 mg/dL 11/05/2023 8:49 AM EDT [facility] Phosphorus 6.2(H) 2.1 - 4.7 mg/dL 11/05/2023 8:49 AM EDT [facility] Albumin 3.9 3.5 - 5.7 g/dL 11/05/2023 8:49 AM EDT [facility] Osmolality, Calculated 295 278 - 305 mOsm/kg 11/05/2023 8:49 AM EDT [facility] EGFR 8 11/05/2023 8:49 AM EDT [facility] Comment:As of 2021, the estimated [...] Disease. Am J Kidney Dis. 2020. Plasma 11/05/2023 8:01 AM EDT 11/05/2023 8:11 AM EDT Terry Cruz DO LAB BLOOD ORDERABLES Final R esult [facility] [address] [place] [address], [facility] * (ABNORMAL) Differential (11/05/2023 8:01 AM EDT) Myelocytes Relative 1.9(H) 0.0 - 0.0 % 11/05/2023 9:30 AM EDT [facility] Bands Relative 1.0 0.0 - 9.0 % 11/05/2023 9:30 AM EDT [facility] Neutrophils Relative 59.4 40.0 - 80.0 % 11/05/2023 9:30 AM EDT [facility] Lymphocytes Relative 19.8 15.0 - 45.0 % 11/05/2023 9:30 AM EDT [facility] Monocytes Relative 8.5 0.0 - 12.0 % 11/05/2023 9:30 AM EDT [facility] Eosinophils Relative 9.4(H) 0.0 - 8.0 % 11/05/2023 9:30 AM EDT [facility] Basophils Relative 0.0 0.0 - 1.0 % 11/05/2023 9:30 AM EDT [facility] Neutrophils Absolute 3,029 1,500 - 7,800 /uL 11/05/2023 9:30 AM EDT [facility] Bands Absolute 51 0 - 750 /uL 11/05/2023 9:30 AM EDT [facility] Myelocytes Absolute 97(H) 0 - 0 /uL 11/05/2023 9:30 AM EDT [facility] Lymphocytes Absolute 1,010 850 - 3,900 /uL 11/05/2023 9:30 AM EDT [facility] Monocytes Absolute 434 200 - 950 /uL 11/05/2023 9:30 AM EDT [facility] Eosinophils Absolute 479 15 - 500 /uL 11/05/2023 9:30 AM EDT [facility] Basophils Absolute 0 0 - 200 /uL 11/05/2023 9:30 AM EDT [facility] Hypochromasia Present 11/05/2023 9:30 AM EDT [facility] PLT Morphology Platelet morphology appears normal 11/05/2023 9:30 AM EDT [facility] Whole Blood 11/05/2023 8:01 AM EDT 11/05/2023 8:11 AM EDT Terry Cruz DO LAB BLOOD ORDERABLES Final R esult [facility] [address] * (ABNORMAL) CBC (11/05/2023 8:01 AM EDT) WBC 5.1 3.8 - 10.8 10E3/uL 11/05/2023 8:20 AM EDT [facility] RBC 2.86(L) 4.20 - 5.80 10E6/uL 11/05/2023 8:20 AM EDT [facility] Hemoglobin 9.5(L) 13.2 - 17.1 g/dL 11/05/2023 8:20 AM EDT [facility] Hematocrit 28.1(L) 38.5 - 50.0 % 11/05/2023 8:20 AM EDT [facility] MCV 98.4 80.0 - 100.0 fL 11/05/2023 8:20 AM EDT [facility] MCH 33.4(H) 27.0 - 33.0 pg 11/05/2023 8:20 AM EDT [facility] MCHC 33.9 32.0 - 36.0 g/dL 11/05/2023 8:20 AM EDT [facility] RDW 15.5(H) 11.0 - 15.0 % 11/05/2023 8:20 AM EDT [facility] Platelets 265 140 - 400 10E3/uL 11/05/2023 8:20 AM EDT [facility] MPV 7.7 7.5 - 11.5 fL 11/05/2023 8:20 AM EDT [facility] Whole Blood 11/05/2023 8:01 AM EDT 11/05/2023 8:11 AM EDT Terry MatthewiTOK LAB BLOOD ORDERABLES Final R esult Performing Organization Address City/[facility]/ZIP Co de Phone Number [facility] [address] [facility]. [address] * (ABNORMAL) Hemoglobin A1c (11/05/2023 8:01 AM EDT) Hemoglobin A1C 7.1(H) 4.0 - 5.6 % 11/05/2023 1:23 PM EDT [facility] Comment: Hemoglobin A1c Interpretation Guidelines: [...] and other individual patient considerations. Whole Blood 11/05/2023 8:01 AM EDT 11/05/2023 8:11 AM EDT Terry Marky LAB BLOOD ORDERABLES Final R esult [facility] [address] [facility]. [address] * Lactate dehydrogenase (11/05/2023 5:00 AM EDT) LD 173 110 - 270 U/L 11/05/2023 5:36 AM EDT [facility] Plasma 11/05/2023 5:00 AM EDT 11/05/2023 5:10 AM EDT Terry Marky LAB BLOOD ORDERABLES Final R esult [facility] [address] [facility]. [address] * (ABNORMAL) Haptoglobin (11/05/2023 5:00 AM EDT) Haptoglobin 285(H) 44 - 215 mg/dL 11/05/2023 5:36 AM EDT [facility] Serum 11/05/2023 5:00 AM EDT 11/05/2023 5:10 AM EDT Terry KapilnuevoStage [facility] BLOOD ORDERABLES Final R esult Performing Organization Address City/[facility]/ZIP Co de Phone Number [facility] [address] [facility]. [address] * (ABNORMAL) Reticulocyte Count, Auto (11/05/2023 5:00 AM EDT) Retic Ct Pct 1.20 0.50 - 2.00 % 11/05/2023 5:19 AM EDT [facility] Retic Ct Abs 33,840 25,000 - 90,000 /uL 11/05/2023 5:19 AM EDT [facility] Immature Retic Fract 0.59(H) 0.09 - 0.56 11/05/2023 5:19 AM EDT [facility] Whole Blood 11/05/2023 5:00 AM EDT 11/05/2023 5:10 AM EDT Terry Re-ComposeartemionuevoStage LAB BLOOD ORDERABLES Final R esult [facility] [address] [facility]. [address] * (ABNORMAL) C-reactive protein (11/05/2023 5:00 AM EDT) CRP 107.2(H) 1.0 - 10.0 mg/L 11/05/2023 5:36 AM EDT [facility] Plasma 11/05/2023 5:00 AM EDT 11/05/2023 5:10 AM EDT Terry Cruz LAB BLOOD ORDERABLES Final R esult [facility] [address] [facility]. [address] * (ABNORMAL) Ferritin (11/05/2023 5:00 AM EDT) Ferritin 426.7(H) 23.9 - 336.2 ng/mL 11/05/2023 5:54 AM EDT [facility] Serum 11/05/2023 5:00 AM EDT 11/05/2023 5:10 AM EDT us Terry Cruz DO [facility] BLOOD ORDERABLES Final R esult [facility] [address] [facility]. [address] * Iron Studies (Iron + TIBC) (11/05/2023 5:00 AM EDT) Iron 53 50 - 212 ug/dL 11/05/2023 5:36 AM EDT [facility] % Iron Saturation 19.0 15.0 - 55.0 % 11/05/2023 5:36 AM EDT [facility] TIBC 279 261 - 462 ug/dL 11/05/2023 5:36 AM EDT [facility] Serum 11/05/2023 5:00 AM EDT 11/05/2023 5:10 AM EDT us Terry Zimmermanvinis LAB BLOOD ORDERABLES Final R esult [facility] [address] * Vitamin B12 (11/05/2023 5:00 AM EDT) Vitamin B-12 349 180 - 914 pg/mL 11/05/2023 6:00 AM EDT [facility] Serum 11/05/2023 5:00 AM EDT 11/05/2023 5:10 AM EDT Terry Marky LAB BLOOD ORDERABLES Final R esult Performing Organization Address City/[facility]/ZIP Co de Phone Number [facility] [address] * Folate (Folic Acid) (11/05/2023 5:00 AM EDT) Folic Acid 14.50 5.90 - 24.80 ng/mL 11/05/2023 6:00 AM EDT [facility] Serum 11/05/2023 5:00 AM EDT 11/05/2023 5:10 AM EDT Terry Cruz LAB BLOOD ORDERABLES Final R esult Performing Organization Address City/[facility]/ZIP Co de Phone Number [facility] [address] * #1 Blood culture-Peripheral site 1 (11/04/2023 11:34 PM EDT) Culture Result No Growth After 5 Days [facility] Blood BLOOD SPECIMEN / Unknown 11/04/2023 11:34 PM EDT 11/05/2023 1:30 AM EDT Dino Hawkins MD MICROBIOLOGY - GENERAL ORDERABL ES Final Result [facility] [address] * (ABNORMAL) POC Glucose Monitoring Device (11/04/2023 10:51 PM EDT) POC Glucose Monitoring Device 108(H) 70 - 100 mg/dL 11/04/2023 10:53 PM EDT [facility] Blood 11/04/2023 10:5 1 PM EDT 11/04/2023 10:52 PM EDT Dino Hawkins MD POINT OF CARE TEST ORDERABLES F inal Result [facility] [address] [facility]. [address] * ECG 12 lead (MUSE) (11/04/2023 10:48 PM EDT) 11/04/2023 10:4 8 PM EDT Narrative MUSE - 11/05/2023 7:45 AM EDT Ventricular Rate: ??85 ??BPM Atrial Rate: ??85 ??BPM P-R Interval: ??258 ??ms QRS Duration: ??98 ??ms QT: ??390 ??ms QTc: ??464 ??ms P [place]: ??67 ??degrees R [place]: ??76 ??degrees T [place]: ??64 ??degrees Diagnosis Line: ??INTERPRETATION NOT AVAILABLE--ECG READ IN ER ^ Confirmed by PHYSICIAN, ER ([id number]), field map editor TITI BENÍTEZ ([id number]) on 11/05/2023 7:45:44 AM Terry Cruz DO ECG ORDERABLES Final Result MUSE * (ABNORMAL) Hepatitis B Lab Panel (HEMODIALYSIS PATIENTS ONLY) (11/04/2023 9:43 PM EDT) Hep B Surface Ag Nonreactive Nonreactive 11/05/2023 12:32 AM EDT [facility] Comment:Health Department no tified in accordance with reportable infectious disease guidelines. Hep B Core Total Ab Reactive(A) Nonreactive 11/05/2023 12:32 AM EDT [facility] Comment:Health Department no tified in accordance with reportable infectious disease guidelines. HBSAB NUMBER >500.00(H) 0.00 - 9.99 mIU/mL 11/05/2023 12:32 AM EDT [facility] Hep B S Ab Reactive(A) Nonreactive 11/05/2023 12:32 AM EDT [facility] Serum 11/04/2023 9:43 PM EDT 11/04/2023 9:50 PM EDT Narrative [facility] - 11/05/2023 12:32 AM EDT The results of the multi-test panel are consistent with a patient who has a history of resolved Hepatitis B infection and is immune due to natural infection. Dontae Morrow MD LAB BLOOD ORDERABLES Final R esult Performing Organization Address City/[facility]/ZIP Co de Phone Number [facility] [address] * #2 Blood culture-Peripheral site 2 (11/04/2023 8:15 PM EDT) Culture Result No Growth After 5 Days [facility] Blood BLOOD SPECIMEN / Unknown 11/04/2023 8:15 PM EDT 11/04/2023 8:59 PM EDT [place] Guerrero MD MICROBIOLOGY - GENERAL ORDERA BLES Final Result Performing Organization Address City/[facility]/ZIP Co de Phone Number [facility] [address] * Central Line (11/04/2023 7:02 PM EDT) Narrative Jaime Maldonado MD - 11/04/2023 7:02 PM EDT Jennifer Dunham MD ? 11/04/2023 ??7:05 PM Central Line Date/Time: 11/04/2023 7:02 PM Performed by: GOLDEN Craneonsent: Verbal consent obtained. Risks and benefits: risks, benefits and alternatives were discussed Patient identity confirmed: verbally with patient Catheter type: hemodialysis Hemodialysis catheter type: triple lumen hemodialysis catheter Indication(s): hemodialysis Patient location at time of line placement: ED Conditions of line placement: sterile Preparation: skin prepped with 2% chlorhexidine Location details: left femoral Catheter size: 13 Fr Catheter fully inserted (hub at skin): yes Insertion guided by: ultrasound guided Number of attempts: 1 Successful placement: yes Sutured: 2-0 Post procedure chest x-ray ordered: no Complications: none Jamie Maldonado MD PROCEDURE/MINOR SURGICAL KIESHA CORONA Final Result * Antibody identification (11/04/2023 6:53 PM EDT) Pathologist [facility] Antibody Id. #1 Anti-C 11/04/2023 6:53 PM EDT [facility] Antibody Id. #2 Anti-D 11/04/2023 6:53 PM EDT [facility] Blood 11/04/2023 6:53 PM EDT 11/04/2023 6:53 PM EDT Chiquita Taylor MD BLOOD BANK TEST ORDERABLES F inal Result Performing Organization Address City/[facility]/ZIP Co de Phone Number [facility] [address] [place] [address] * Elution & antibody identification, RBC (11/04/2023 6:52 PM EDT) [facility] Elution Result 1 Negative with all cells tested 11/04/2023 6:52 PM EDT [facility] Comment:All othr clin signif alloab ruled out at this time Blood 11/04/2023 6:52 PM EDT 11/04/2023 6:52 PM EDT Chiquita Taylor MD BLOOD BANK TEST ORDERABLES F inal Result [facility] [address] * GILBERT Anti-IgG (11/04/2023 6:51 PM EDT) Pathologist [facility] GILBERT IgG Positive 11/04/2023 6:51 PM EDT [facility] Blood 11/04/2023 6:51 PM EDT 11/04/2023 6:51 PM EDT us Chiquita Taylor MD BLOOD BANK TEST ORDERABLES F inal Result [facility] [address] [place] [address], [facility] * CT Neck With IV contrast (11/04/2023 4:03 PM EDT) Anatomical Region Laterality Modality Neck, C-spine Computed Tomogra phy 11/04/2023 3:49 PM EDT Impressions 11/04/2023 4:25 PM EDT IMPRESSION: 1. ??No neck mass or cervical lymphadenopathy. No focal fluid collection. 2. ??Mild edema in the subcutaneous soft tissues of the left face and surrounding the left parotid gland. The left parotid gland is slightly increased in density when compared to the right, which may represent mild hyperemia and either a primary or reactive parotitis. No ductal dilatation or focal calculus. Report Verified by: Leanna Wilks MD at 11/04/2023 4:25 PM EDT Narrative 11/04/2023 4:25 PM EDT EXAM: CT NECK WITH IV CONTRAST INDICATION: Neck swelling, L>R TECHNIQUE: Axial thin section CT images of the neck were obtained after ??150 mL of IOHEXOL 350 MG IODINE/ML INTRAVENOUS SOLUTION knee administered intravenously . Sagittal and coronal 2D multiplanar reconstructions were performed at the scanner. ?? COMPARISON: None available. FINDINGS: Adequate diagnostic quality. Nasopharynx: Symmetric with no mass. Normal torus tubarius, fossa of Rosenmuller, and adenoid tonsillar tissue. Suprahyoid neck: There is mild reticulation in the subcutaneous soft tissues of the left lower face (series 601 image 47). There is slight thickening of the left platysma and mild edema surrounding the left parotid gland in this region, which is slightly hyperemic when compared to the right. Unremarkable oropharynx, oral cavity, parapharyngeal space, and retropharyngeal space. Normal venetian blind maker space, infratemporal fossa, and buccal space. Infrahyoid neck: Normal larynx, hypopharynx, and supraglottis. Lymph nodes: No adenopathy. Salivary Glands: Slight increased density of the left parotid gland when compared to the right, which could represent mild hyperemia. The right parotid gland, submandibular, and sublingual glands with no dilated ducts or calculi. Thyroid: Normal. Brain: Normal as included. Orbits, paranasal sinuses, mastoids: No acute orbital abnormality. Moderate paranasal sinus mucosal thickening. Clear mastoid air cells. Vascular structures: A right-sided IJ central venous catheter terminates at the mid SVC level. Mild atherosclerotic calcifications of the carotid artery bifurcations. The arterial venous structures of the neck are otherwise unremarkable. Thoracic inlet: No mass, nodule, or abnormal lung opacity included. Bones: Normal. Procedure Note Leanna Wilks MD - 11/04/2023 EXAM: CT NECK WITH IV CONTRAST INDICATION: Neck swelling, L>R TECHNIQUE: Axial thin section CT images of the neck were obtained [id number] mL of IOHEXOL 350 MG IODINE/ML INTRAVENOUS SOLUTION knee administeredintravenously . Sagittal and coronal 2D multiplanar reconstructions wereperformed at the scanner. COMPARISON: None available. FINDINGS: Adequate diagnostic quality. Nasopharynx: Symmetric with no mass. Normal torus tubarius, fossa ofRosenmuller, and adenoid tonsillar tissue. Suprahyoid neck: There is mild reticulation in the subcutaneous softtissues of the left lower face (series 601 image 47). There is slightthickening of the left platysma and mild edema surrounding the leftparotid gland in this region, which is slightly hyperemic when compared tothe right. Unremarkable oropharynx, oral cavity, parapharyngeal space, andretropharyngeal space. Normal venetian blind maker space, infratemporal fossa, andbuccal space. Infrahyoid neck: Normal larynx, hypopharynx, and supraglottis. Lymph nodes: No adenopathy. Salivary Glands: Slight increased density of the left parotid gland whencompared to the right, which could represent mild hyperemia. The rightparotid gland, submandibular, and sublingual glands with no dilated ductsor calculi. Thyroid: Normal. Brain: Normal as included. Orbits, paranasal sinuses, mastoids: No acute orbital abnormality.Moderate paranasal sinus mucosal thickening. Clear mastoid air cells. Vascular structures: A right-sided IJ central venous catheter terminatesat the mid SVC level. Mild atherosclerotic calcifications of the carotidartery bifurcations. The arterial venous structures of the neck areotherwise unremarkable. Thoracic inlet: No mass, nodule, or abnormal lung opacity included. Bones: Normal. IMPRESSION: 1. No neck mass or cervical lymphadenopathy. No focal fluid collection. 2. Mild edema in the subcutaneous soft tissues of the left face andsurrounding the left parotid gland. The left parotid gland is slightlyincreased in density when compared to the right, which may represent mildhyperemia and either a primary or reactive parotitis. No ductal dilatationor focal calculus. Report Verified by: Leanna Wilks MD at 11/04/2023 4:25 PM EDT us Chiquita Taylor MD IMG CT ORDERABLES Final Resu lt * X-ray Portable Chest (11/04/2023 3:04 PM EDT) Anatomical Region Laterality Modality Chest Radiographic Sobia ging 11/04/2023 2:26 PM EDT Impressions 11/04/2023 3:12 PM EDT IMPRESSION: Right IJ approach central venous catheter tip projects over the upper SVC. No findings to suggest an acute cardiopulmonary abnormality. Report Verified by: Jason Geller MD at 11/04/2023 3:12 PM EDT Narrative 11/04/2023 3:12 PM EDT EXAM: XR PORTABLE CHEST INDICATION: Difficulty breathing TECHNIQUE: 1 view of the chest. COMPARISON: None. FINDINGS: Medical Devices: Right IJ approach central venous catheter tip projects over the upper SVC. Heart and Mediastinum: Cardiac silhouette is borderline enlarged, but unchanged. Lungs and Pleura: Lungs are clear. No pleural effusions or evidence for pneumothorax, however sensitivity is limited due to supine positioning. Bones and Soft tissues: No acute abnormalities. Procedure Note Jason Geller MD - 11/04/2023 EXAM: XR PORTABLE CHEST INDICATION: Difficulty breathing TECHNIQUE: 1 view of the chest. COMPARISON: None. FINDINGS: Medical Devices: Right IJ approach central venous catheter tip projectsover the upper SVC. Heart and Mediastinum: Cardiac silhouette is borderline enlarged, butunchanged. Lungs and Pleura: Lungs are clear. No pleural effusions or evidence forpneumothorax, however sensitivity is limited due to supine positioning. Bones and Soft tissues: No acute abnormalities. IMPRESSION: Right IJ approach central venous catheter tip projects over the upper SVC. No findings to suggest an acute cardiopulmonary abnormality. Report Verified by: Jason Geller MD at 11/04/2023 3:12 PM EDT Chiquita Taylor MD IMG DIAGNOSTIC IMAGING ORDER ASHISH Final Result * Cyclosporine level (11/04/2023 2:57 PM EDT) Pathologist [facility] Cyclosporine, LC/MS 120.2 100.0 - 350.0 ng/mL 11/05/2023 1:09 PM EDT [facility] Comment:Performed via liquid chromatography tandem mass spectrometry. Detection limit: 20 ng/mL. Individual target concentrations may vary due to target organ and time after transplant. This test has been developed and its performance characteristics determined by [facility] which is certified under the Clinical Laboratory Improvement Amendment of 1988 (CLIA-88) to perform high complexity testing. The test has not been cleared or approved by the US Food and Drug Administration (FDA). The FDA has determined that such clearance is not necessary. The test should be used for clinical purposes and is not regarded as investigational. Whole Blood 11/04/2023 2:57 PM EDT 11/04/2023 3:04 PM EDT Chiquita Taylor MD LAB BLOOD ORDERABLES Final R esult [facility] [address] [facility]. [address] * Antibody Screen (11/04/2023 2:57 PM EDT) [facility] Antibody Screen Positive 11/04/2023 3:41 PM EDT [facility] Blood 11/04/2023 2:57 PM EDT 11/04/2023 3:06 PM EDT Narrative [facility] - 11/04/2023 5:27 PM EDT Testing performed by [facility] Transfusion Service Chiquita Taylor MD BLOOD BANK TEST ORDERABLES F inal Result [facility] [address] * ABO/Rh (11/04/2023 2:57 PM EDT) ABO Grouping O 11/04/2023 3:27 PM EDT [facility] Rh Type Negative 11/04/2023 3:27 PM EDT [facility] Blood 11/04/2023 2:57 PM EDT 11/04/2023 3:06 PM EDT Chiquita Taylor MD BLOOD BANK TEST ORDERABLES F inal Result Performing Organization Address City/[facility]/ZIP Co de Phone Number [facility] [address] [facility]. [address] * (ABNORMAL) Venous blood gas, Line/Syringe (11/04/2023 2:57 PM EDT) PH-Line Draw 7.26(L) 7.32 - 7.42 11/04/2023 3:04 PM EDT [facility] PCO2-Line Draw 48 41 - 51 mm Hg 11/04/2023 3:04 PM EDT [facility] PO2-Line Draw 49(H) 25 - 40 mm Hg 11/04/2023 3:04 PM EDT [facility] HCO3-Line Draw 22(L) 24 - 28 mmol/L 11/04/2023 3:04 PM EDT [facility] CO2 Content-Line Draw 23(L) 25 - 29 mmol/L 11/04/2023 3:04 PM EDT [facility] Base Excess-Line Draw -5.1(L) -2.0 - 3.0 mmol/L 11/04/2023 3:04 PM EDT [facility] %HBO2-Line Draw 75.6(H) 40.0 - 70.0 % 11/04/2023 3:04 PM EDT [facility] Carboxyhgb-Nemo e Draw 1.7 % 11/04/2023 3:04 PM EDT [facility] Comment: CARBOXYHEMOGLOBIN (CO) REFERENCE RANGES: Non-Smokers: ??<2 % ? Smokers: ??<8 % TOXIC: >20 % Methemoglobin- Line Draw 1.0 0.0 - 1.5 % 11/04/2023 3:04 PM EDT [facility] Reduced Hemoglobin-Nemo e Draw 21.7(H) 0.0 - 5.0 % 11/04/2023 3:04 PM EDT [facility] Venous, Line Draw 11/04/2023 2:57 PM EDT 11/04/2023 3:03 PM EDT us Chiquita Taylor MD LAB BLOOD ORDERABLES Final R esult [facility] [address] * Protime-INR (11/04/2023 2:57 PM EDT) Protime 14.1 12.1 - 15.1 seconds 11/04/2023 3:43 PM EDT [facility] INR 1.1 0.9 - 1.1 11/04/2023 3:43 PM EDT [facility] Comment: RECOMMENDED THERAPEUTIC RANGES USING INR : ?Stable oral anticoagulant therapy: ? 2.0 - 3.0 ?Mechanical prosthetic heart valve: ? 2.5 - 3.5 ?Recurrent acute myocardial infarction: ? 2.5 - 3.5 Plasma 11/04/2023 2:57 PM EDT 11/04/2023 3:04 PM EDT Chiquita Taylor MD LAB BLOOD ORDERABLES Final R esult [facility] [address] * (ABNORMAL) Hepatic Function Panel (11/04/2023 2:57 PM EDT) Total Bilirubin 0.4 0.0 - 1.5 mg/dL 11/04/2023 3:30 PM EDT [facility] Bilirubin, Direct 0.14 0.00 - 0.40 mg/dL 11/04/2023 3:30 PM EDT [facility] AST 12(L) 13 - 39 U/L 11/04/2023 3:30 PM EDT [facility] ALT 10 7 - 52 U/L 11/04/2023 3:30 PM EDT [facility] Alkaline Phosphatase 103 36 - 125 U/L 11/04/2023 3:30 PM EDT [facility] Total Protein 6.9 6.4 - 8.9 g/dL 11/04/2023 3:30 PM EDT [facility] Albumin 3.9 3.5 - 5.7 g/dL 11/04/2023 3:30 PM EDT [facility] Bilirubin, Indirect 0.26 0.00 - 1.10 mg/dL 11/04/2023 3:30 PM EDT [facility] Plasma 11/04/2023 2:57 PM EDT 11/04/2023 3:04 PM EDT Chiquita Taylor MD LAB BLOOD ORDERABLES Final R esult [facility] [address] [facility]. [address] * (ABNORMAL) Renal Function Panel w/EGFR (11/04/2023 2:57 PM EDT) Sodium 140 133 - 146 mmol/L 11/04/2023 3:30 PM EDT [facility] Potassium 5.3 3.5 - 5.3 mmol/L 11/04/2023 3:30 PM EDT [facility] Chloride 103 98 - 110 mmol/L 11/04/2023 3:30 PM EDT [facility] CO2 20(L) 21 - 33 mmol/L 11/04/2023 3:30 PM EDT [facility] Anion Gap 17(H) 3 - 16 mmol/L 11/04/2023 3:30 PM EDT [facility] BUN 56(H) 7 - 25 mg/dL 11/04/2023 3:30 PM EDT [facility] Creatinine 11.24(H) 0.60 - 1.30 mg/dL 11/04/2023 3:30 PM EDT [facility] Glucose 201(H) 70 - 100 mg/dL 11/04/2023 3:30 PM EDT [facility] Calcium 8.6 8.6 - 10.3 mg/dL 11/04/2023 3:30 PM EDT [facility] Phosphorus 6.8(H) 2.1 - 4.7 mg/dL 11/04/2023 3:30 PM EDT [facility] Albumin 3.9 3.5 - 5.7 g/dL 11/04/2023 3:30 PM EDT [facility] Osmolality, Calculated 311(H) 278 - 305 mOsm/kg 11/04/2023 3:30 PM EDT [facility] EGFR 5 11/04/2023 3:30 PM EDT [facility] Comment:As of 2021, the estimated [...] Disease. Am J Kidney Dis. 2020. Plasma 11/04/2023 2:57 PM EDT 11/04/2023 3:04 PM EDT Chiquita Taylor MD LAB BLOOD ORDERABLES Final R esult [facility] [address] * ED HCV Ab Reflex To HCV Quant (11/04/2023 2:57 PM EDT) HCV Ab Nonreactive Nonreactive 11/04/2023 4:03 PM EDT [facility] Comment:Health Department no tified in accordance with reportable infectious disease guidelines. HCVAB Number 0.06 0.00 - 0.79 S/CO 11/04/2023 4:03 PM EDT [facility] Serum 11/04/2023 2:57 PM EDT 11/04/2023 3:04 PM EDT Chiquita Taylor MD LAB BLOOD ORDERABLES Final R esult Performing Organization Address City/[facility] Co de Phone Number [facility] [address] * Differential (11/04/2023 2:57 PM EDT) Neutrophils Relative 64.6 40.0 - 80.0 % 11/04/2023 3:13 PM EDT [facility] Lymphocytes Relative 19.3 15.0 - 45.0 % 11/04/2023 3:13 PM EDT [facility] Monocytes Relative 9.1 0.0 - 12.0 % 11/04/2023 3:13 PM EDT [facility] Eosinophils Relative 6.5 0.0 - 8.0 % 11/04/2023 3:13 PM EDT [facility] Basophils Relative 0.5 0.0 - 1.0 % 11/04/2023 3:13 PM EDT [facility] nRBC 0 0 - 0 /100 WBC 11/04/2023 3:13 PM EDT [facility] Neutrophils Absolute 3,230 1,500 - 7,800 /uL 11/04/2023 3:13 PM EDT [facility] Lymphocytes Absolute 965 850 - 3,900 /uL 11/04/2023 3:13 PM EDT [facility] Monocytes Absolute 455 200 - 950 /uL 11/04/2023 3:13 PM EDT [facility] Eosinophils Absolute 325 15 - 500 /uL 11/04/2023 3:13 PM EDT [facility] Basophils Absolute 25 0 - 200 /uL 11/04/2023 3:13 PM EDT [facility] Whole Blood 11/04/2023 2:57 PM EDT 11/04/2023 3:04 PM EDT us Chiquita Taylor MD LAB BLOOD ORDERABLES Final R esult [facility] [address] [place] [address], [facility] * (ABNORMAL) CBC (11/04/2023 2:57 PM EDT) WBC 5.0 3.8 - 10.8 10E3/uL 11/04/2023 3:13 PM EDT [facility] RBC 3.04(L) 4.20 - 5.80 10E6/uL 11/04/2023 3:13 PM EDT [facility] Hemoglobin 10.0(L) 13.2 - 17.1 g/dL 11/04/2023 3:13 PM EDT [facility] Hematocrit 29.7(L) 38.5 - 50.0 % 11/04/2023 3:13 PM EDT [facility] MCV 97.7 80.0 - 100.0 fL 11/04/2023 3:13 PM EDT [facility] MCH 32.8 27.0 - 33.0 pg 11/04/2023 3:13 PM EDT [facility] MCHC 33.6 32.0 - 36.0 g/dL 11/04/2023 3:13 PM EDT [facility] RDW 15.4(H) 11.0 - 15.0 % 11/04/2023 3:13 PM EDT [facility] Platelets 241 140 - 400 10E3/uL 11/04/2023 3:13 PM EDT [facility] MPV 7.4(L) 7.5 - 11.5 fL 11/04/2023 3:13 PM EDT [facility] Whole Blood 11/04/2023 2:57 PM EDT 11/04/2023 3:04 PM EDT Chiuqita Taylor MD LAB BLOOD ORDERABLES Final R esult [facility] [address] [place] [address], [facility] documented in this encounter Visit Diagnoses Diagnosis Central venous line infection, initial encounter- Primary ESRD (end stage renal disease) on dialysis ([facility]) End stage renal disease Immunosuppression ([facility]) documented in this encounter Administered Medications Inactive Administered Medications - up to 3 most recent administrations Medication Order MAR Action Action Date Dose Rate Site acetaminophen (TYLENOL) tablet 650 mg 650 mg, Oral, Every 8 hours PRN, Headaches, Starting on 11/05/23 at 1017, Maximum dose of acetaminophen is 4000 mg (4 grams) from all sources in 24 hours. Given 11/05/2023 1:26 PM EDT 650 mg ALPRAZolam (XANAX) tablet 0.5 mg 0.5 mg, Oral, Once, On 11/04/23 at 1650, For 1 dose Given 11/04/2023 5:25 PM EDT 0.5 mg alteplase (ACTIVASE) 1 mg in sterile water (PF) syringe for line care 1 mg, Intracatheter, Once, On 11/07/23 at 0830, For 1 dose, Allow to dwell for [...] not be required in most cases. Given 11/07/2023 9:34 AM EDT 1 mg AMOXicillin-clavulanate (AUGMENTIN) 875-125 mg per tablet 1 tablet 1 tablet, Oral, Every 12 hours scheduled (2 times per day), First dose on Mon11/08/23 at 2100 Given 11/09/2023 10:23 AM EDT 1 tablet Given 11/08/2023 9:47 PM EDT 1 tablet AMPicillin-sulbactam (UNASYN) 3 g in sodium chloride 0.9% 100 mL ADDaptor IVPB 3 g, Intravenous, at 200 mL/hr, Every 12 hours scheduled (2 times per day), First dose on Mon11/05/23 at 1313, For 14 doses, Use ADDaptor product - Mix Thoroughly Before Administration New Bag 11/08/2023 8:54 AM EDT 3 g 200 mL/hr New Bag 11/07/2023 8:09 PM EDT 3 g 200 mL/hr New Bag 11/07/2023 8:49 AM EDT 3 g 200 mL/hr aspirin chewable tablet 81 mg 81 mg, Oral, Daily with breakfast, First dose on Mon11/05/23 at 0800 Given 11/09/2023 10:35 AM EDT 81 mg Given 11/08/2023 8:43 AM EDT 81 mg Given 11/07/2023 8:40 AM EDT 81 mg carBAMazepine (TEGRETOL) tablet 200 mg 200 mg, Oral, 2 times daily, First dose on Mon11/04/23 at 2207 Given 11/09/2023 10:24 AM EDT 200 mg Given 11/08/2023 9:47 PM EDT 200 mg Given 11/08/2023 8:43 AM EDT 200 mg carvediloL (COREG) tablet 50 mg 50 mg, Oral, 2 times daily with meals, First dose on Mon11/05/23 at 0800 Given 11/05/2023 5:36 PM EDT 50 mg ceFAZolin (ANCEF) 2 g in sodium chloride 0.9% 100 mL ADDaptor IVPB 2 g, Intravenous, at 200 mL/hr, Once, On Mon11/08/23 at 1330, For 1 dose, Begin infusion 20-60 minutes prior to incision Use ADDaptor product - Mix Thoroughly Before Administration, Pre-procedure(IR), Indication? Prophylaxis-Surgical, Site of diagnosed infections (select all that apply): Other, Other: line/skin New Bag 11/08/2023 1:19 PM EDT 2 g 200 mL/hr cefTRIAXone (ROCEPHIN) 2 g in sodium chloride 0.9% 20 mL IV Push 2 g, Intravenous, at 240 mL/hr, Every 24 hours, First dose on 11/04/23 at 2012, ADMINISTER IV PUSH. Infuse over 5 minutes. Draw up 20 mL Sodium Chloride 0.9% into empty syringe. Inject 20 mL into vial of Ceftriaxone. Shake well. Withdraw volume into syringe and administer immediately. Given 11/04/2023 8:15 PM EDT 2 g 240 mL/ hr cinacalcet (SENSIPAR) tablet 90 mg 90 mg, Oral, Daily with breakfast, First dose on Mon11/05/23 at 0800, SWALLOW WHOLE; DO NOT CRUSH OR CHEW Given 11/09/2023 10:35 AM EDT 90 mg Given 11/08/2023 8:43 AM EDT 90 mg Given 11/07/2023 8:40 AM EDT 90 mg cycloSPORINE modified (NEORAL/GENGRAF) capsule 100 mg 100 mg, Oral, 2 times daily, First dose on 11/04/23 at 2208, LEVEL 2 HAZARDOUS MEDICATION Given 11/06/2023 8:14 AM EDT 100 mg Given 11/05/2023 9:03 PM EDT 100 mg cycloSPORINE modified (NEORAL/GENGRAF) capsule 100 mg 100 mg, Oral, Every 12 hours, First dose (after last modification) on 11/06/23 at 2030, LEVEL 2 HAZARDOUS MEDICATION Given 11/08/2023 8:43 AM EDT 100 mg Given 11/07/2023 8:00 PM EDT 100 mg Given 11/07/2023 8:40 AM EDT 100 mg cycloSPORINE modified (NEORAL/GENGRAF) capsule 100 mg 100 mg, Oral, Every morning, First dose (after last modification) on Bobbi 11/09/23 at 0900, LEVEL 2 HAZARDOUS MEDICATION Given 11/09/2023 10:23 AM EDT 100 mg cycloSPORINE modified (NEORAL/GENGRAF) capsule 125 mg 125 mg, Oral, At Bedtime (2100), First dose on 11/08/23 at 2100, LEVEL 2 HAZARDOUS MEDICATION Given 11/08/2023 9:46 PM EDT 125 mg dextrose 10%-water (D10W) IV soln 12.5 g, Intravenous, Every 15 min PRN, Low blood sugar, for glucose < 70 and alert but can not be corrected, orally or via feeding tube, Starting on 11/04/23 at 2209, Recheck blood sugar in 15 minutes and repeat treatment if glucose still < 70. For Smart Pump: Set volume to be infused; 125 ml for 12.5 grams or 250 mL for 25 grams. dextrose 10%-water (D10W) IV soln 25 g, Intravenous, Every 15 min PRN, Low blood sugar, for glucose < 70 and not alert, Starting on 11/04/23 at 2209, Recheck glucose in 15 minutes and repeat treatment if glucose still < 70. For Smart Pump: Set volume to be infused; 125 ml for 12.5 grams or 250 mL for 25 grams. dicyclomine (BENTYL) tablet 20 mg 20 mg, Oral, 4 times a day, First dose on Mon11/06/23 at 1300, Tablet should be swallowed whole; do not administer via any enteral tube route Given 11/09/2023 1:37 PM EDT 20 mg Given 11/09/2023 10:23 AM EDT 20 mg Given 11/08/2023 9:47 PM EDT 20 mg amusvb-vlsigsarb-chj,al-simeth (FIRST MOUTHWASH) oral suspension 15 mL 15 mL, Swish & Spit, Once, On Mon11/06/23 at 0130, For 1 dose, Alternative: magic mouthwash 15 mL = bxdsrr-uysdrzjav-qml,al-simeth (FIRST MOUTHWASH) 15 mL oral solution SWISH AND SPIT; DO NOT SWALLOW!! Given 11/06/2023 2:19 AM EDT 15 mLs diphenhydrAMINE (BENADRYL) capsule 25 mg 25 mg, Oral, Every 6 hours PRN, Itching, Starting on 11/05/23 at 0202 Given 11/05/2023 1:41 AM EDT 25 mg doxazosin (CARDURA) tablet 8 mg 8 mg, Oral, Daily, First dose on Mon11/05/23 at 0900, Therapeutic Incterchange: terazosin (HYTRIN) 10 mg daily - doxazosin (CARDURA) 8 mg daily Given 11/09/2023 10:24 AM EDT 8 mg Given 11/08/2023 8:43 AM EDT 8 mg Given 11/07/2023 8:43 AM EDT 8 mg ergocalciferol capsule 50,000 Units 50,000 Units, Oral, Every Monday, Monday, Monday (Once per day on Monday), First dose on Mon11/06/23 at 0900 Given 11/08/2023 8:43 AM EDT 50,000 Units Given 11/06/2023 8:13 AM EDT 50,000 Units fentaNYL (SUBLIMAZE) injection Intravenous, Intra-op PRN, Starting on Mon11/08/23 at 1400, Intra-procedure(IR) Given 11/08/2023 2:00 PM EDT 25 mcg folic acid (FOLVITE) tablet 1 mg 1 mg, Oral, Daily, First dose on Mon11/05/23 at 0900 Given 11/09/2023 10:23 AM EDT 1 mg Given 11/08/2023 8:43 AM EDT 1 mg Given 11/07/2023 8:40 AM EDT 1 mg For Catheter Lock: gentamicin 0.32 mg/mL and citrate 4% antibiotic IV lock 5 mL, Intracatheter, Once, On 11/04/23 at 1620, For 1 dose, INSTILL PER LUMEN CAPACITY AFTER EACH DIALYSIS OR TO PREVENT OCCLUSION. GENTAMICIN 0.32 mg/mL IN CITRATE 4%; PROTECT FROM LIGHT Given 11/04/2023 4:30 PM EDT 5 mLs For Catheter Lock: gentamicin 0.32 mg/mL and citrate 4% antibiotic IV lock 5 mL, Intracatheter, Use as directed PRN, for catheter flush, Starting on 11/04/23 at 2250, Instill 2-5 mL based on patient catheter size to prevent occlusion. GENTAMICIN 0.32 mg/mL IN CITRATE 4%; PROTECT FROM LIGHT Given 11/09/2023 9:26 AM EDT 5 mLs Given 11/07/2023 2:14 PM EDT 5 mLs Given 11/06/2023 4:52 PM EDT 5 mLs gabapentin (NEURONTIN) capsule 300 mg 300 mg, Oral, Daily, First dose (after last modification) on Mon11/07/23 at 0900 Given 11/09/2023 10:23 AM EDT 300 mg Given 11/08/2023 8:43 AM EDT 300 mg Given 11/07/2023 8:40 AM EDT 300 mg gabapentin (NEURONTIN) capsule 400 mg 400 mg, Oral, 3 times daily, First dose (after last modification) on 11/05/23 at 0900 Given 11/06/2023 12:20 PM EDT 400 mg Given 11/06/2023 8:14 AM EDT 400 mg Given 11/05/2023 9:03 PM EDT 400 mg gentamicin 0.32 mg/mL in citrate 4% 0.32 mg/mL lock Soln Starting on 11/04/23 at 1605, For 1 dose, Created by justice ghotraide GENTAMICIN 0.32 mg/mL IN CITRATE 4%; PROTECT FROM LIGHT heparin (porcine) injection 5,000 Units 5,000 Units, Subcutaneous, Every 8 hours scheduled (3 times per day), First dose on 11/04/23 at 1943 Given 11/06/2023 8:17 PM EDT 5,000 Units Right Arm heparin (porcine) injection Intravenous, Intra-op PRN, Starting on Mon11/08/23 at 1408, Intra-procedure(IR) Given 11/08/2023 2:08 PM EDT 2,000 Units hydrALAZINE (APRESOLINE) tablet 100 mg 100 mg, Oral, Once, On 11/04/23 at 1650, For 1 dose Given 11/04/2023 5:25 PM EDT 100 mg HYDROmorphone (DILAUDID) injection Syrg 0.5 mg 0.5 mg, Intravenous, Once, On Mon11/05/23 at 2230, For 1 dose Given 11/05/2023 10:30 PM EDT 0.5 mg HYDROmorphone (DILAUDID) injection Syrg 0.5 mg 0.5 mg, Intravenous, Once, On 11/06/23 at 0230, For 1 dose Given 11/06/2023 2:18 AM EDT 0.5 mg HYDROmorphone (DILAUDID) tablet 1 mg 1 mg, Oral, Every 4 hours PRN, severe pain (NRS 7-10), Hold for respirations less than 10, SBP less than 100, and excessive somnolence., Starting on 11/06/23 at 1941 Given 11/09/2023 11:58 AM EDT 1 mg Given 11/09/2023 1:52 AM EDT 1 mg Given 11/08/2023 9:54 PM EDT 1 mg icosapent ethyL (VASCEPA) oral capsule 2 g 2 g, Oral, 2 times daily with meals, First dose on Mon11/05/23 at 1700 Given 11/09/2023 10:36 AM EDT 2 g Given 11/08/2023 5:01 PM EDT 2 g Given 11/08/2023 8:44 AM EDT 2 g insulin lispro (humaLOG/ADMELOG) injection 0-8 Units 0-8 Units, Subcutaneous, 3 times daily before meals, First dose on Mon11/05/23 at 0900, HIGH ALERT MEDICATION Given 11/07/2023 8:44 AM EDT 3 Units Right Arm Given 11/06/2023 8:35 AM EDT 1 Units Ab dominal Tissue Given 11/05/2023 5:36 PM EDT 3 Units Ri ght Arm insulin lispro (humaLOG/ADMELOG) injection 0-8 Units 0-8 Units, Subcutaneous, 4 times a day, First dose (after last modification) on Mon11/07/23 at 1300, HIGH ALERT MEDICATION Given 11/09/2023 10:25 AM EDT 3 Units Right Arm Given 11/08/2023 5:00 PM EDT 1 Units Ri ght Arm Given 11/07/2023 5:34 PM EDT 3 Units Ri ght Arm lidocaine 10 mg/mL (1 %) injection Intra-op PRN, Starting on Mon11/08/23 at 1343, Intra-procedure(IR) Given 11/08/2023 1:43 PM EDT 10 mLs montelukast (SINGULAIR) tablet 10 mg 10 mg, Oral, Daily, First dose on Mon11/05/23 at 0900 Given 11/09/2023 10:36 AM EDT 10 mg Given 11/08/2023 8:43 AM EDT 10 mg Given 11/07/2023 8:40 AM EDT 10 mg mycophenolate (CELLCEPT) capsule 250 mg 250 mg, Oral, 2 times daily, First dose on 11/03/24 at 2210, LEVEL 2 HAZARDOUS MEDICATION, On hold since 11/05/2023 at 0950 until manually unheld Given 11/05/2023 8:52 AM EDT 250 mg NIFEdipine (PROCARDIA-XL) 24 hr tablet 90 mg 90 mg, Oral, Daily, First dose on 11/04/23 at 1702, DO NOT CRUSH Given 11/09/2023 10:22 AM EDT 90 mg Given 11/08/2023 8:43 AM EDT 90 mg Given 11/07/2023 8:40 AM EDT 90 mg OMNIPAQUE (iohexol) 350 mg iodine/mL 150 mL 150 mL, Intravenous, IMG once as needed, contrast, Starting on 11/04/23 at 1619, For 1 dose Given 11/04/2023 4:04 PM EDT 150 mLs ondansetron (ZOFRAN-ODT) disintegrating tablet 4 mg 4 mg, Oral, Every 8 hours PRN, Nausea, Starting on 11/04/23 at 2210 Given 11/09/2023 5:42 AM EDT 4 mg Given 11/08/2023 9:58 PM EDT 4 mg Given 11/08/2023 9:32 AM EDT 4 mg oxyCODONE (ROXICODONE) immediate release tablet 10 mg 10 mg, Oral, Every 4 hours PRN, severe pain (NRS 7-10), Starting on 11/04/23 at 2337, If on IV and PO pain medications, use IV if patient cannot tolerate oral. Given 11/06/2023 4:28 PM EDT 10 mg Given 11/06/2023 4:32 AM EDT 10 mg Given 11/05/2023 9:10 PM EDT 10 mg oxyCODONE (ROXICODONE) immediate release tablet 5 mg 5 mg, Oral, Once, On 11/04/23 at 1801, For 1 dose Given 11/04/2023 6:18 PM EDT 5 mg oxyCODONE (ROXICODONE) immediate release tablet 5 mg 5 mg, Oral, Every 4 hours PRN, moderate pain (NRS-4-6), Starting on 11/04/23 at 2337, If on IV and PO pain medications, use IV if patient cannot tolerate oral. Given 11/04/2023 11:15 PM EDT 5 mg pantoprazole (PROTONIX) EC tablet 40 mg 40 mg, Oral, 2 times daily, First dose on Mon11/04/23 at 2211, Do Not Crush Given 11/09/2023 10:23 AM EDT 40 mg Given 11/08/2023 9:47 PM EDT 40 mg Given 11/08/2023 8:43 AM EDT 40 mg perflutren (OPTISON) Susp 0.66 mg 0.66 mg, Intravenous, IMG once as needed, contrast, Starting on Mon11/07/23 at 1627, For 1 dose Given 11/07/2023 4:02 PM EDT 0.66 mg QUEtiapine (SEROQUEL) half tablet 25 mg 25 mg, Oral, Nightly PRN, Sleep, Starting on Mon11/04/23 at 2219, PRECUT BY PHARMACY Given 11/09/2023 1:20 AM EDT 25 m g Given 11/07/2023 11:14 PM EDT 25 mg Given 11/05/2023 4:21 AM EDT 25 mg simethicone (MYLICON) chewable tablet 80 mg 80 mg, Oral, 30 min after meals and bedtime, First dose on Mon11/06/23 at 1230 Given 11/09/2023 1:35 PM EDT 80 mg Given 11/09/2023 10:22 AM EDT 80 mg Given 11/08/2023 9:47 PM EDT 80 mg sodium chloride (HYPER-ROGELIO) 3.5 % nebulizer solution 4 mL 4 mL, Nebulization, RT Once, On Mon11/06/23 at 2000, For 1 dose Given 11/06/2023 8:06 PM EDT 4 mLs sodium chloride 0.9 % infusion 50 mL/hr, Intravenous, Continuous, Starting on Mon11/08/23 at 1330, Pre-procedure(IR) sodium chloride 0.9 % nebulizer solution 3 mL 3 mL, Nebulization, RT every 6 hours PRN, Congestion, Starting on Mon11/06/23 at 1201 Given 11/09/2023 12:39 AM EDT 3 mLs sodium chloride 0.9% flush 10 mL 10 mL, Intravenous, Every Shift, First dose on Mon11/04/23 at 2150 Given 11/09/2023 1:36 PM EDT 10 mLs Given 11/08/2023 9:50 PM EDT 10 mLs Given 11/08/2023 5:21 AM EDT 10 mLs sodium chloride 0.9% flush 10 mL 10 mL, Intravenous, Every Shift, First dose on Mon11/08/23 at 1330 Given 11/09/2023 1:35 PM EDT 10 mLs Given 11/09/2023 5:42 AM EDT 10 mLs Given 11/08/2023 9:49 PM EDT 10 mLs tenapanor Tab 30 mg 30 mg, Oral, 2 times daily with meals, First dose on Mon11/05/23 at 1700 Given 11/09/2023 10:36 AM EDT 30 mg Given 11/08/2023 5:01 PM EDT 30 mg Given 11/08/2023 8:43 AM EDT 30 mg documented in this encounter Active and Recently Administered Medications Times are shown in EDT. Scheduled Medication Order 11/07/2023 11/08/2023 11/09/2023 alteplase (ACTIVASE) 1 mg in sterile water (PF) syringe for line care (COMPLETED) 1 mg, Intracatheter, Once, On Mon11/07/23 at 0830, For 1 dose, Allow to dwell for [...] will not be required in most cases. 0934 (Given - Provider: Mandi Perez RN) alteplase (ACTIVASE) 1 mg in sterile water (PF) syringe for line care 1 mg, Intracatheter, Once, On Mon11/08/23 at 0600, For 1 dose, Allow to dwell for [...] will not be required in most cases. 0712 (Hold - Provider: Maru Martinez RN - Reason: Other) AMOXicillin-clavulanate (AUGMENTIN) 875-125 mg per tablet 1 tablet 1 tablet, Oral, Every 12 hours scheduled (2 times per day), First dose on Mon11/08/23 at 2100 2147 (Given - Provider: Christina Box RN) 1023 (Given - Provider: Grace Yates) AMPicillin-sulbactam (UNASYN) 3 g in sodium chloride 0.9% 100 mL ADDaptor IVPB (CANCELED) 3 g, Intravenous, at 200 mL/hr, Every 12 hours scheduled (2 times per day), First dose on Mon11/05/23 at 1313, For 14 doses, Use ADDaptor product - Mix Thoroughly Before Administration 0849 (New Bag - Provider: Mandi Perez RN)2008 (New Bag - Provider: Maru Martinez RN) 0854 (New Bag - Provider: Sienna Wood RN) aspirin chewable tablet 81 mg 81 mg, Oral, Daily with breakfast, First dose on 11/05/23 at 0800 0840 (Given - Provider: Mandi Perez RN) 0843 (Given - Provider: Sienna Wood, JANA) 1035 (Given - Provider: Grace Yates) carBAMazepine (TEGRETOL) tablet 200 mg 200 mg, Oral, 2 times daily, First dose on 11/04/23 at 2207 0843 (Given - Provider: Mandi Perez RN)1999 (Given - Provider: Maru Martinez RN) 0843 (Given - Provider: Sienna Wood RN)2147 (Given - Provider: Christina Box RN) 1024 (Given - Provider: Grace Yates) carvediloL (COREG) tablet 50 mg 50 mg, Oral, 2 times daily with meals, First dose on Mon11/05/23 at 0800 0841 (Not Given - Provider: Mandi Perez RN - Reason: Patient/family refused)1729 (Not Given - Provider: Mandi Perez RN - Reason: Patient/family refused) 0843 (Not Given - Provider: Sienna Wood RN - Reason: Patient/family refused)1700 (Not Given - Provider: Sienna Wood RN - Reason: Patient/family refused) 1041 (Not Given - Provider: Grace Yates - Reason: Patient/family refused) ceFAZolin (ANCEF) 2 g in sodium chloride 0.9% 100 mL ADDaptor IVPB 2 g, Intravenous, at 200 mL/hr, Once, On Mon11/08/23 at 1330, For 1 dose, Begin infusion 20-60 minutes prior to incision Use ADDaptor product - Mix Thoroughly Before Administration, Pre-procedure(IR), Indication? Prophylaxis-Surgical, Site of diagnosed infections (select all that apply): Bloodstream 1330 (Due) ceFAZolin (ANCEF) 2 g in sodium chloride 0.9% 100 mL ADDaptor IVPB (COMPLETED) 2 g, Intravenous, at 200 mL/hr, Once, On Mon11/08/23 at 1330, For 1 dose, Begin infusion 20-60 minutes prior to incision Use ADDaptor product - Mix Thoroughly Before Administration, Pre-procedure(IR), Indication? Prophylaxis-Surgical, Site of diagnosed infections (select all that apply): Other, Other: line/skin 1319 (New Bag - Provider: Izabel Shetty, JANA) cinacalcet (SENSIPAR) tablet 90 mg 90 mg, Oral, Daily with breakfast, First dose on Mon11/05/23 at 0800, SWALLOW WHOLE; DO NOT CRUSH OR CHEW 0840 (Given - Provider: Mandi Perez, JANA) 0843 (Given - Provider: Sienna Wood, JANA) 1035 (Given - Provider: Grace Yates) cycloSPORINE modified (NEORAL/GENGRAF) capsule 100 mg (CANCELED) 100 mg, Oral, Every 12 hours, First dose (after last modification) on Mon11/06/23 at 2030, LEVEL 2 HAZARDOUS MEDICATION 0840 (Given - Provider: Mandi Perez RN)1999 (Given - Provider: Maru Martinez RN) 0843 (Given - Provider: Sienna Wood RN) cycloSPORINE modified (NEORAL/GENGRAF) capsule 100 mg(Linked Group 1) 100 mg, Oral, Every morning, First dose (after last modification) on Mon11/09/23 at 0900, LEVEL 2 HAZARDOUS MEDICATION 1023 (Given - Provider: Grace Yates) cycloSPORINE modified (NEORAL/GENGRAF) capsule 125 mg(Linked Group 1) 125 mg, Oral, At Bedtime (2100), First dose on Mon11/08/23 at 2100, LEVEL 2 HAZARDOUS MEDICATION 2146 (Given - Provider: Christina Box, JANA) dicyclomine (BENTYL) tablet 20 mg 20 mg, Oral, 4 times a day, First dose on Mon11/06/23 at 1300, Tablet should be swallowed whole; do not administer via any enteral tube route 0840 (Given - Provider: Mandi Perez RN)1300 (Not Given - Provider: Mandi Perez RN - Reason: Patient not available - Comment: Pt in dialysis)1632 (Given - Provider: Mandi Perez RN)1999 (Given - Provider: Maru Martinez, JANA) 0843 (Given - Provider: Sienna Wood RN)1300 (Not Given - Provider: Sienna Wood RN - Reason: Transfer to a Procedural area)1700 (Given - Provider: Sienna Wood RN)2147 (Given - Provider: Christina Box, JANA) 1023 (Given - Provider: Grace Yates)1337 (Given - Provider: Grace Yates) doxazosin (CARDURA) tablet 8 mg 8 mg, Oral, Daily, First dose on Mon11/05/23 at 0900, Therapeutic Incterchange: terazosin (HYTRIN) 10 mg daily - doxazosin (CARDURA) 8 mg daily 0843 (Given - Provider: Mandi Perez RN) 0843 (Given - Provider: Sienna Wood RN) 1024 (Given - Provider: Grace Yates) entecavir (BARACLUDE) tablet 0.5 mg 0.5 mg, Oral, Every 7 days, First dose on Mon11/04/23 at 2209, ADMINISTER ON EMPTY STOMACH (2 HOURS BEFORE OR AFTER MEALS). LEVEL 2 HAZARDOUS MEDICATION ergocalciferol capsule 50,000 Units 50,000 Units, Oral, Every Monday, Monday, Monday (Once per day on Monday), First dose on Mon11/06/23 at 0900 0843 (Given - Provider: Sienna Wood RN) folic acid (FOLVITE) tablet 1 mg 1 mg, Oral, Daily, First dose on Mon11/05/23 at 0900 0840 (Given - Provider: Mandi Perez RN) 0843 (Given - Provider: Sienna Wood RN) 1023 (Given - Provider: Grace Yates) gabapentin (NEURONTIN) capsule 300 mg 300 mg, Oral, Daily, First dose (after last modification) on Mon11/07/23 at 0900 0840 (Given - Provider: Mandi Perez RN) 0843 (Given - Provider: Sienna Wood RN) 1023 (Given - Provider: Grace Yates) hydrALAZINE (APRESOLINE) tablet 100 mg 100 mg, Oral, Every 8 hours, First dose on Mon11/04/23 at 2209, On hold since Mon11/04/2023 at 2217 until manually unheld 0609 (Automatically Held - Provider: Terry Cruz DO)140 (Not Given - Provider: Mandi Perez RN - Reason: Other)2208 (Automatically Held - Provider: Terry Cruz DO) 0609 (Automatically Held - Provider: Terry Cruz DO)140 (Automatically Held - Provider: Terry Cruz DO)220 (Automatically Held - Provider: Terry Cruz DO) 0609 (Automatically Held - Provider: Terry Cruz DO)1409 (Automatically Held - Provider: Terry Cruz DO)1914 (Unheld by provider - Provider: Automatic Discharge Provider) icosapent ethyL (VASCEPA) oral capsule 2 g 2 g, Oral, 2 times daily with meals, First dose on 11/05/23 at 1700 0843 (Given - Provider: Mandi Perez RN)1734 (Given - Provider: Mandi Perez RN) 0844 (Given - Provider: Sienna Wood RN)1701 (Given - Provider: Sienna Wood, RN) 1036 (Given - Provider: Grace Yates) insulin lispro (humaLOG/ADMELOG) injection 0-8 Units (CANCELED) 0-8 Units, Subcutaneous, 3 times daily before meals, First dose on 11/05/23 at 0900, HIGH ALERT MEDICATION 0844 (Given - Provider: Mandi Perez RN) insulin lispro (humaLOG/ADMELOG) injection 0-8 Units 0-8 Units, Subcutaneous, 4 times a day, First dose (after last modification) on Mon11/07/23 at 1300, HIGH ALERT MEDICATION 1300 (Not Given - Provider: Mandi Perez RN - Reason: Patient not available - Comment: Pt in dialysis)1734 (Given - Provider: Mandi Perez RN) 0656 (Not Given - Provider: Maru Martinez RN - Reason: Patient/family refused)0854 (Not Given - Provider: Sienna Wood RN - Reason: Order parameters not met)0855 (Not Given - Provider: Sienna Wood RN - Reason: Order parameters not met)1700 (Given - Provider: Sienna Wood, RN) 1025 (Given - Provider: Grace Yates)1029 (Not Given - Provider: Grace Yates - Reason: Patient not available)1300 (Due) montelukast (SINGULAIR) tablet 10 mg 10 mg, Oral, Daily, First dose on 11/05/23 at 0900 0840 (Given - Provider: Mandi Perez RN) 0843 (Given - Provider: Sienna Wood, RN) 1036 (Given - Provider: Grace Yates) mycophenolate (CELLCEPT) capsule 250 mg 250 mg, Oral, 2 times daily, First dose on 11/04/23 at 2210, LEVEL 2 HAZARDOUS MEDICATION, On hold since Mon11/05/2023 at 0950 until manually unheld 0900 (Not Given - Provider: Mandi Perez RN - Reason: Other)2100 (Automatically Held - Provider: Kari Spear MD) 0900 (Automatically Held - Provider: Kari Spear MD)2100 (Automatically Held - Provider: Kari Spear MD) 0900 (Automatically Held - Provider: Kari Spear MD)1914 (Unheld by provider - Provider: Automatic Discharge Provider) NIFEdipine (PROCARDIA-XL) 24 hr tablet 90 mg 90 mg, Oral, Daily, First dose on 11/04/23 at 1702, DO NOT CRUSH 0840 (Given - Provider: Mandi Perez RN) 0843 (Given - Provider: Sienna Wood RN) 1022 (Given - Provider: Grace Yates) pantoprazole (PROTONIX) EC tablet 40 mg 40 mg, Oral, 2 times daily, First dose on 11/04/23 at 2211, Do Not Crush 0840 (Given - Provider: Mandi Perez RN)1999 (Given - Provider: Maru Martinez RN) 0843 (Given - Provider: Sienna Wood RN)2147 (Given - Provider: Christina Box, JANA) 1023 (Given - Provider: Grace Yates) simethicone (MYLICON) chewable tablet 80 mg 80 mg, Oral, 30 min after meals and bedtime, First dose on 11/06/23 at 1230 0840 (Given - Provider: Mandi Perez RN)1230 (Not Given - Provider: Mandi Perez RN - Reason: Patient not available - Comment: Pt in dialysis)1632 (Given - Provider: Mandi Perez RN)1999 (Given - Provider: Maru Martinez RN) 0842 (Given - Provider: Sienna Wood RN)1230 (Not Given - Provider: Sienna Wood RN - Reason: Transfer to a Procedural area)1700 (Given - Provider: Sienna Wood RN)2147 (Given - Provider: Christina Box, JANA) 1022 (Given - Provider: Grace Yates)1335 (Given - Provider: Sienna Wood RN) sodium chloride 0.9% flush 10 mL(Linked Group 2) 10 mL, Intravenous, Every Shift, First dose on Mon11/04/23 at 2150 0453 (Given - Provider: Ricky Alford RN)1454 (Given - Provider: Mandi Perez RN)2001 (Given - Provider: Maru Martinez, RN) 0521 (Given - Provider: Maru Martinez RN)1300 (Not Given - Provider: Sienna Wood RN - Reason: Transfer to a Procedural area)2150 (Given - Provider: Christina Box RN) 0542 (Not Given - Provider: Ronald Acosta RN - Reason: Other - Comment: duplicate)1336 (Given - Provider: Sienna Wood RN) sodium chloride 0.9% flush 10 mL(Linked Group 3) 10 mL, Intravenous, Every Shift, First dose on 11/08/23 at 1330 1300 (Not Given - Provider: Sienna Wood RN - Reason: Transfer to a Procedural area)2149 (Given - Provider: Christina Box RN) 0542 (Given - Provider: Ronald Acosta RN)1335 (Given - Provider: Sienna Wood RN) tenapanor Tab 30 mg 30 mg, Oral, 2 times daily with meals, First dose on 11/05/23 at 1700 0843 (Given - Provider: Mandi Perez RN)1734 (Given - Provider: Mandi Perez RN) 0843 (Given - Provider: Sienna Wood, RN)1701 (Given - Provider: Sienna Wood RN) 1036 (Given - Provider: Grace Yates) Continuous Medication Order 11/07/2023 11/08/2023 11/09/2023 sodium chloride 0.9 % infusion 50 mL/hr, Intravenous, Continuous, Starting on Mon11/08/23 at 1330, Pre-procedure(IR) 1330 (Due) PRN Medication Order 11/07/2023 11/08/2023 11/09/2023 acetaminophen (TYLENOL) tablet 650 mg 650 mg, Oral, Every 8 hours PRN, Headaches, Starting on 11/05/23 at 1017, Maximum dose of acetaminophen is 4000 mg (4 grams) from all sources in 24 hours. clonazePAM (klonoPIN) tablet 0.5 mg 0.5 mg, Oral, Daily as needed, Anxiety, Starting on 11/04/23 at 2207 dextrose 10%-water (D10W) IV soln(Linked Group 4) 12.5 g, Intravenous, Every 15 min PRN, Low blood sugar, for glucose < 70 and alert but can not be corrected, orally or via feeding tube, Starting on 11/04/23 at 2209, Recheck blood sugar in 15 minutes and repeat treatment if glucose still < 70. For Smart Pump: Set volume to be infused; 125 ml for 12.5 grams or 250 mL for 25 grams. dextrose 10%-water (D10W) IV soln(Linked Group 4) 25 g, Intravenous, Every 15 min PRN, Low blood sugar, for glucose < 70 and not alert, Starting on 11/04/23 at 2209, Recheck glucose in 15 minutes and repeat treatment if glucose still < 70. For Smart Pump: Set volume to be infused; 125 ml for 12.5 grams or 250 mL for 25 grams. diphenhydrAMINE (BENADRYL) capsule 25 mg 25 mg, Oral, Every 6 hours PRN, Itching, Starting on 11/05/23 at 0202 fentaNYL (SUBLIMAZE) injection (COMPLETED) Intravenous, Intra-op PRN, Starting on 11/08/23 at 1400, Intra-procedure(IR) 1400 (Given - Provider: Izabel Shetty RN) For Catheter Lock: gentamicin 0.32 mg/mL and citrate 4% antibiotic IV lock 5 mL, Intracatheter, Use as directed PRN, for catheter flush, Starting on 11/04/23 at 2250, Instill 2-5 mL based on patient catheter size to prevent occlusion. GENTAMICIN 0.32 mg/mL IN CITRATE 4%; PROTECT FROM LIGHT 1414 (Given - Provider: Sruthi Quevedo RN) 9090 (Given - Provider: Magui Ojeda RN - Comment: dwells) glucose chewable tablet 12 g 12 g, Oral, Every 15 min PRN, Low blood sugar, see admin instructions, Starting on 11/04/23 at 2209, TAKING PO: Patient has blood glucose between [...] 15 grams of carbohydrate. Repeat as needed. Do not give chewable tablets via feeding tube heparin (porcine) injection (COMPLETED) Intravenous, Intra-op PRN, Starting on Mon11/08/23 at 1408, Intra-procedure(IR) 1408 (Given - Provider: Maame Ribeiro CNP - Comment: hep lock) HYDROmorphone (DILAUDID) tablet 1 mg 1 mg, Oral, Every 4 hours PRN, severe pain (NRS 7-10), Hold for respirations less than 10, SBP less than 100, and excessive somnolence., Starting on Mon11/06/23 at 1941 0858 (Given - Provider: Mandi Perez, JANA)1747 (Given - Provider: Mandi Perez RN) 2154 (Given - Provider: Christina Box RN) 0152 (Given - Provider: Ronald Acosta RN)1158 (Given - Provider: Sienna Wood RN) lidocaine 10 mg/mL (1 %) injection (COMPLETED) Intra-op PRN, Starting on Mon11/08/23 at 1343, Intra-procedure(IR) 1343 (Given - Provider: Maame Ribeiro, RAMON) methocarbamoL (ROBAXIN) tablet 500 mg 500 mg, Oral, As needed, Muscle spasms, Starting on 11/04/23 at 2139 ondansetron (ZOFRAN-ODT) disintegrating tablet 4 mg 4 mg, Oral, Every 8 hours PRN, Nausea, Starting on 11/04/23 at 2210 2130 (Given - Provider: Maru Martinez, JANA) 0932 (Given - Provider: Sienna Wood, JANA)2158 (Given - Provider: Christina Box, JANA) 0542 (Given - Provider: Ronald Acosta, RN) perflutren (OPTISON) Susp 0.66 mg (COMPLETED) 0.66 mg, Intravenous, IMG once as needed, contrast, Starting on Mon11/07/23 at 1627, For 1 dose 1602 (Given - Provider: Genevieve Baldwin) polyethylene glycol (MIRALAX) packet 17 g 17 g, Oral, Daily as needed, mild constipation (no BM for 24 hrs), Starting on 11/04/23 at 2210 QUEtiapine (SEROQUEL) half tablet 25 mg 25 mg, Oral, Nightly PRN, Sleep, Starting on 11/04/23 at 2219, PRECUT BY PHARMACY 2314 (Given - Provider: Maru Martinez, JANA) 0120 (Given - Provider: Ronald Acosta, JANA) sodium chloride 0.9 % nebulizer solution 3 mL 3 mL, Nebulization, RT every 6 hours PRN, Congestion, Starting on 11/06/23 at 1201 0039 (Given - Provider: Sunni Gilbert, [employer]) No Frequency Medication Order 11/07/2023 11/08/2023 11/09/2023 ceFAZolin (ANCEF) 2 gram injection Starting on Mon11/08/23 at 1315, For 1 dose, Created by cabinet override 1330 (Due) fentaNYL (SUBLIMAZE) 50 mcg/mL injection Starting on Mon11/08/23 at 1357, For 1 dose, Created by cabinet override HIGH ALERT MEDICATION 1400 (Due) heparin (porcine) 1,000 unit/mL injection Starting on Mon11/08/23 at 1332, For 1 dose, Created by cabinet override 1400 (Due) Linked Groups Order Group 1: cycloSPORINE modified (NEORAL/GENGRAF) capsule 100 mgJump to med 100 mg, Oral, Every morning, First dose (after last modification) on Bobbi 11/09/23 at 0900, LEVEL 2 HAZARDOUS MEDICATION And cycloSPORINE modified (NEORAL/GENGRAF) capsule 125 mgJump to med 125 mg, Oral, At Bedtime (2100), First dose on Mon11/08/23 at 2100, LEVEL 2 HAZARDOUS MEDICATION Group 2: Place saline lock (CANCELED) STAT, Once, On 11/04/23 at 2148, For 1 occurrence And sodium chloride 0.9% flush 10 mLJump to med 10 mL, Intravenous, Every Shift, First dose on 11/04/23 at 2150 Group 3: Place saline lock (CANCELED) STAT, Once, On 11/08/23 at 1319, For 1 occurrence And sodium chloride 0.9% flush 10 mLJump to med 10 mL, Intravenous, Every Shift, First dose on 11/08/23 at 1330 Group 4: dextrose 10%-water (D10W) IV solnJump to med 12.5 g, Intravenous, Every 15 min PRN, Low blood sugar, for glucose < 70 and alert but can not be corrected, orally or via feeding tube, Starting on 11/04/23 at 2209, Recheck blood sugar in 15 minutes and repeat treatment if glucose still < 70. For Smart Pump: Set volume to be infused; 125 ml for 12.5 grams or 250 mL for 25 grams. Or dextrose 10%-water (D10W) IV solnJump to med 25 g, Intravenous, Every 15 min PRN, Low blood sugar, for glucose < 70 and not alert, Starting on 11/04/23 at 2209, Recheck glucose in 15 minutes and repeat treatment if glucose still < 70. For Smart Pump: Set volume to be infused; 125 ml for 12.5 grams or 250 mL for 25 grams. documented in this encounter Additional Health Concerns Infection Onset Date Last Indicated Resolved Time Rule Out C. difficile 11/05/2023 11/06/20232023 10:01 PM EDT Assessment Noted Time PHQ-9 Depression Total Score: 0 12/06/19 18 3:00 PM EDT documented as of this encounter Care Teams Correction Officer Penitentiary Relationship Specialty Start Date End Date Edgar Fournier MD [address] [place] [address] Dr [place] [address] PCP - General 12/22/21 Maile Valles, RN Txp Post Coordinator Transplant Hepatology 11/07/17 Jack Ordoñez MD [address] [place] [address] Consulting Physician Transplant Hepatology 01/05/18 Estephania Sharif, PharmD Pharmacist Pharmacist 11/11/19 documented as of this encounter
--- OUTSIDE RECORDS SUMMARY | 2024-07-12 12:25 | XMS_ITS | Encounter Summary ---
Author Organization [facility] Address [address] [place] [address] Care Team Providers Care Acupressure Therapist Name Role Phone Maile Valles RN Unavailable Unavail able Jack Ordoñez MD Unavailable [phone] Estephania Sharif PharmD Unavailable Christine Edgar Tolentino MD Primary Care Provider [phone] Source Comments This information has been disclosed [...] release of HIV test results or diagnoses. [id number] Health Encounter Details Date Type Department Care Team (Late st Contact Info) Description 11/23/2023 Orders Only [facility] Transplant Hepatobiliary at [place] [address] [facility] [address] [place] [address] Nathalie Murphy MA Incisional hernia, without obstruction or gangrene (Primary Dx) Social History Tobacco Use Types [...] Description 07/15/2024 9:00 AM EST Hospital Encounter [facility] Interventional Radiology [address] [place] [address] [place] [phone] Herve Carrillo MD [address] [facility] [address] [place] [address] documented as of this encounter Results * X-ray Comparison Images (11/23/2023 10:33 AM EDT) Narrative 11/23/2023 10:33 AM EDT Images associated with this accession number were presented to us for comparison to an examination performed here. Marcelino Montalvo III, MD IMG DIAGNOSTIC IMAG ING ORDERABLES Final Result documented in this encounter Visit Diagnoses Diagnosis Incisional hernia, without obstruction or gangrene- Primary Incisional hernia, without obstruction or gangrene documented in this encounter Additional Health Concerns Assessment Noted Time PHQ-9 Depression Total Score: 0 12/06/19 18 3:00 PM EDT documented as of this encounter Care Teams Acupressure Therapist Relationship Specialty Start Date End Date Edgar Fournier MD [address] [place] [phone] PCP - General 12/22/21 Maile Valles, JANA Txp Post Coordinator Transplant Hepatology 11/07/17 Jack Ordoñez MD [address] [place] [phone] Consulting Physician Transplant Hepatology 01/05/18 Estephania Sharif, DarrianD Pharmacist Pharmacist 11/11/19 documented as of this encounter
--- OUTSIDE RECORDS SUMMARY | 2024-07-12 12:25 | XMS_ITS | Encounter Summary ---
Author Organization [facility] Address [facility] [place] [address] Care Team Providers Care Ornamental Ironworker Helper Name Role Phone Maile Valles RN Unavailable Unavail able Jack Ordoñez MD Unavailable [phone] Estephania Sharif PharmD Unavailable Christine Edgar Tolentino MD Primary Care Provider [phone] Source Comments This information has been disclosed [...] release of HIV test results or diagnoses. [id number] Reason for Visit * Reason Comments Labs Only Encounter Details Date Type Department Care Team (Late st Contact Info) Description 10/23/2023 11:55 AM EDT Specimen [facility] Outreach Lab [address] [place] [address] Jack Ordoñez MD [address] [facility] [phone] Liver replaced by transplant (CMS-HCC); Encounter for therapeutic drug monitoring Social History [...] 9:00 AM [facility] Hospital Encounter [facility] Interventional Radiology [address] [place] [phone] Herve Carrillo MD 3880 [facility] [address] [place] [address] documented as of this encounter Procedures Procedure Name Priority Date/Time Associated Diagnosis Comments HEPATIC FUNCTION PANEL Routine 10/23/2023 10:11 AM EDT Liver replaced by transplant (CMS-HCC) RENAL FUNCTION PANEL W/EGFR Routine 10/23/2023 10:11 AM EDT Liver replaced by transplant (CMS-HCC) CYCLOSPORINE LEVEL Routine 10/23/2023 10 :11 AM EDT Liver replaced by transplant (CMS-HCC) Encounter for therapeutic drug monitoring DIFFERENTIAL Routine 10/23/2023 10:11 AM EDT Liver replaced by transplant (CMS-HCC) CBC Routine 10/23/2023 10:11 AM EDT Liver replaced by transplant (CMS-HCC) documented in this encounter Results * (ABNORMAL) Cyclosporine level (10/23/2023 10:11 AM EDT) Cyclosporine, LC/MS 38.1(L) 100.0 - 350.0 ng/mL 10/23/2023 2:22 PM EDT [facility] Comment:Performed via liquid chromatography tandem mass spectrometry. Detection limit: 20 ng/mL. Individual target concentrations may vary due to target organ and time after transplant. This test has been developed and its performance characteristics determined by [facility] which is certified under the Clinical Laboratory Improvement Amendment of 1988 (CLIA-88) to perform high complexity testing. The test has not been cleared or approved by the US Food and Drug Administration (FDA). The FDA has determined that such clearance is not necessary. The test should be used for clinical purposes and is not regarded as investigational. Whole Blood 10/23/2023 10:1 1 AM EDT 10/23/2023 10:21 AM EDT Narrative [facility] - 10/23/2023 2:22 PM EDT Standing orders to be drawn monthly ??Labs should be completed prior to taking morning medications. ?? Please fax results to Liver transplant at [phone] Call for critical results at [phone] us Jack Ordoñez MD LAB BLOOD ORDERABLES Final Re sult [facility] [address] [place], [place] [address] * (ABNORMAL) Renal Function Panel w/EGFR (10/23/2023 10:11 AM EDT) Sodium 140 133 - 146 mmol/L 10/23/2023 11:21 AM EDT [facility] Potassium 5.8(H) 3.5 - 5.3 mmol/L 10/23/2023 11:21 AM EDT [facility] Chloride 101 98 - 110 mmol/L 10/23/2023 11:21 AM EDT [facility] CO2 26 21 - 33 mmol/L 10/23/2023 11:21 AM EDT [facility] Anion Gap 13 3 - 16 mmol/L 10/23/2023 11:21 AM EDT [facility] BUN 64(H) 7 - 25 mg/dL 10/23/2023 11:21 AM EDT [facility] Creatinine 9.39(H) 0.60 - 1.30 mg/dL 10/23/2023 11:21 AM EDT [facility] Glucose 145(H) 70 - 100 mg/dL 10/23/2023 11:21 AM EDT [facility] Calcium 9.4 8.6 - 10.3 mg/dL 10/23/2023 11:21 AM EDT [facility] Phosphorus 6.7(H) 2.1 - 4.7 mg/dL 10/23/2023 11:21 AM EDT [facility] Albumin 4.2 3.5 - 5.7 g/dL 10/23/2023 11:21 AM EDT [facility] Osmolality, Calculated 311(H) 278 - 305 mOsm/kg 10/23/2023 11:21 AM EDT [facility] EGFR 6 10/23/2023 11:21 AM EDT [facility] Comment:As of 2021, the estimated [...] Disease. Am J Kidney Dis. 2020. Plasma 10/23/2023 10:1 1 AM EDT 10/23/2023 10:33 AM EDT Narrative [facility] - 10/23/2023 11:21 AM EDT Standing orders to be drawn monthly ??Labs should be completed prior to taking morning medications. ?? Please fax results to Liver transplant at [phone] Call for critical results at [phone] Jack Ordoñez MD LAB BLOOD ORDERABLES Final Re sult [facility] [address] * Hepatic Function Panel (10/23/2023 10:11 AM EDT) Total Bilirubin 0.4 0.0 - 1.5 mg/dL 10/23/2023 11:21 AM EDT [facility] Bilirubin, Direct 0.09 0.00 - 0.40 mg/dL 10/23/2023 11:21 AM EDT [facility] AST 13 13 - 39 U/L 10/23/2023 11:21 AM EDT [facility] ALT 9 7 - 52 U/L 10/23/2023 11:21 AM EDT [facility] Alkaline Phosphatase 118 36 - 125 U/L 10/23/2023 11:21 AM EDT [facility] Total Protein 6.8 6.4 - 8.9 g/dL 10/23/2023 11:21 AM EDT [facility] Albumin 4.2 3.5 - 5.7 g/dL 10/23/2023 11:21 AM EDT [facility] Bilirubin, Indirect 0.31 0.00 - 1.10 mg/dL 10/23/2023 11:21 AM EDT [facility] Plasma 10/23/2023 10:1 1 AM EDT 10/23/2023 10:33 AM EDT Narrative [facility] - 10/23/2023 11:21 AM EDT Standing orders to be drawn monthly ??Labs should be completed prior to taking morning medications. ?? Please fax results to Liver transplant at [phone] Call for critical results at [phone] Jack Ordoñez MD LAB BLOOD ORDERABLES Final Re sult [facility] [address] * (ABNORMAL) Differential (10/23/2023 10:11 AM EDT) Myelocytes Relative 2.9(H) 0.0 - 0.0 % 10/23/2023 1:14 PM EDT [facility] Neutrophils Relative 67.3 40.0 - 80.0 % 10/23/2023 1:14 PM EDT [facility] Lymphocytes Relative 23.1 15.0 - 45.0 % 10/23/2023 1:14 PM EDT [facility] Monocytes Relative 2.9 0.0 - 12.0 % 10/23/2023 1:14 PM EDT [facility] Eosinophils Relative 3.8 0.0 - 8.0 % 10/23/2023 1:14 PM EDT [facility] Basophils Relative 0.0 0.0 - 1.0 % 10/23/2023 1:14 PM EDT [facility] Neutrophils Absolute 2,557 1,500 - 7,800 /uL 10/23/2023 1:14 PM EDT [facility] Myelocytes Absolute 110(H) 0 - 0 /uL 10/23/2023 1:14 PM EDT [facility] Lymphocytes Absolute 878 850 - 3,900 /uL 10/23/2023 1:14 PM EDT [facility] Monocytes Absolute 110(L) 200 - 950 /uL 10/23/2023 1:14 PM EDT [facility] Eosinophils Absolute 144 15 - 500 /uL 10/23/2023 1:14 PM EDT [facility] Basophils Absolute 0 0 - 200 /uL 10/23/2023 1:14 PM EDT [facility] Macrocytosis Present 10/23/2023 1:14 PM EDT [facility] Polychromasia Present 10/23/2023 1:14 PM EDT [facility] Stomatocytes Present 10/23/2023 1:14 PM EDT [facility] PLT Morphology Platelet morphology appears normal 10/23/2023 1:14 PM EDT [facility] Whole Blood 10/23/2023 10:1 1 AM EDT 10/23/2023 10:20 AM EDT Narrative [facility] - 10/23/2023 1:14 PM EDT Standing orders to be drawn monthly ??Labs should be completed prior to taking morning medications. ?? Please fax results to Liver transplant at [phone] Call for critical results at [phone] us Jack Ordoñez MD LAB BLOOD ORDERABLES Final Re sult [facility] [address] [place] [address], [facility] * (ABNORMAL) CBC (10/23/2023 10:11 AM EDT) [facility] WBC 3.8 3.8 - 10.8 10E3/uL 10/23/2023 10:31 AM EDT [facility] RBC 3.55(L) 4.20 - 5.80 10E6/uL 10/23/2023 10:31 AM EDT [facility] Hemoglobin 11.6(L) 13.2 - 17.1 g/dL 10/23/2023 10:31 AM EDT [facility] Hematocrit 35.4(L) 38.5 - 50.0 % 10/23/2023 10:31 AM EDT [facility] MCV 99.5 80.0 - 100.0 fL 10/23/2023 10:31 AM EDT [facility] MCH 32.8 27.0 - 33.0 pg 10/23/2023 10:31 AM EDT [facility] MCHC 32.9 32.0 - 36.0 g/dL 10/23/2023 10:31 AM EDT [facility] RDW 15.6(H) 11.0 - 15.0 % 10/23/2023 10:31 AM EDT [facility] Platelets 219 140 - 400 10E3/uL 10/23/2023 10:31 AM EDT [facility] MPV 7.7 7.5 - 11.5 fL 10/23/2023 10:31 AM EDT [facility] Whole Blood 10/23/2023 10:1 1 AM EDT 10/23/2023 10:20 AM EDT Narrative [facility] - 10/23/2023 10:31 AM EDT Standing orders to be drawn monthly ??Labs should be completed prior to taking morning medications. ?? Please fax results to Liver transplant at [phone] Call for critical results at [phone] Jack Ordoñez MD LAB BLOOD ORDERABLES Final Re sult [facility] [address] [facility]. [address] documented in this encounter Visit Diagnoses Diagnosis Liver replaced by transplant (CMS-HCC) Liver replaced by transplant Encounter for therapeutic drug monitoring documented in this encounter Additional Health Concerns Assessment Noted Time PHQ-9 Depression Total Score: 0 12/06/19 18 3:00 PM EDT documented as of this encounter Care Teams Ornamental Ironworker Helper Relationship Specialty Start Date End Date Edgar Fournier MD [address] [place] [address] [place] [address] PCP - General 12/22/21 Maile Valles, RN Txp Post Coordinator Transplant Hepatology 11/07/17 Jack Ordoñez MD [address] [place] [phone] Consulting Physician Transplant Hepatology 01/05/18 Estephania Sharif, PharmD Pharmacist Pharmacist 11/11/19 documented as of this encounter
--- OUTSIDE RECORDS SUMMARY | 2024-07-12 12:26 | XMS_ITS | Encounter Summary ---
Author Organization [facility] Address [facility] [place] [address] Care Team Providers Care Preventative Maintenance Technician Name Role Phone Maile Valles RN Unavailable Unavail able Jack Ordoñez MD Unavailable Estephania Sharif PharmD Unavailable Christine Edgar Tolentino MD Primary Care Provider [phone] Source Comments This information has been disclosed [...] release of HIV test results or diagnoses. [id number] Encounter Details Date Type Department Care Team (Latest Contact Info) Description 10/21/2023 Travel Social History Tobacco Use Types Packs/Day [...] Health [facility] Interventional Radiology [address] [place] [phone] Herve Carrillo MD 3130 [facility] [address] [place] [address] documented as of this encounter Visit Diagnoses Not on filedocumented in this encounter Additional Health Concerns Assessment Noted Time PHQ-9 Depression Total Score: 0 12/06/19 18 3:00 PM EDT documented as of this encounter Care Teams Preventative Maintenance Technician Relationship Specialty Start Date End Date Edgar Fournier MD [address] [place] [address] [place] [address] PCP - General 12/22/21 Maile Valles, RN Txp Post Coordinator Transplant Hepatology 11/07/17 Jack Ordoñez MD [address] [place] [phone] Consulting Physician Transplant Hepatology 01/05/18 Estephania Sharif, DarrianD Pharmacist Pharmacist 11/11/19 documented as of this encounter
--- OUTSIDE RECORDS SUMMARY | 2024-07-12 12:26 | XMS_ITS | Encounter Summary ---
Author Organization [facility] Address [address] [place] [address] Care Team Providers Care Pipe Bender Name Role Phone Maile Valles RN Unavailable Unavail able Jack Ordoñez MD Unavailable [phone] Estephania Sharif PharmD Unavailable Christine Edgar Tolentino MD Primary Care Provider [phone] Source Comments This information has been disclosed [...] release of HIV test results or diagnoses. [id number] Reason for Visit * Reason Comments Advice Only Encounter Details Date Type Department Care Team (Late st Contact Info) Description 07/19/2023 Telephone [facility] Liver Transplant at [address] [place] [phone] Cathy Quesada RN Advice Only Social History Tobacco Use Types [...] Progress Notes * Maile Valles RN - 07/20/2023 7:01 AM EST OSH contacted [facility] and consulted with Dr. Sullivan. Per Capacity Management note: MD Sullivan suggests theyrecheck the ammonia level, doesn't think anything else needs to be done. documented in this encounter Miscellaneous Notes * Telephone Encounter - Cathy Quesada RN - 07/19/2023 5:13 PM EST Patient calling to report fatigue, reports jerking movements of limbs, I don't feel right . Patient states that he was seen in the ER yesterday and they didn't find nothin . Of note, ER contacted transplant change management director consumer relations specialist and reviewed findings with provider. Provider states in note that patient recently saw orthopedic surgeon who increased Gabapentin and that patients repeat creatinine was at baseline. Patient reports he has been compliant with dialysis and has not missed any sessions. Advised patient that his symptoms do not appear to be transplant related. Encouraged patient to either contact PCP for follow up, or return to ER. Patient verbalized understanding and will call with any further questions. documented in this encounter Plan of Treatment Upcoming Encounters Date Type Department Care Team (Late st Contact Info) Description 07/15/2024 9:00 AM EST Hospital Encounter [facility] Interventional Radiology [address] [place] [phone] Herve Carrillo MD 3130 [facility] 3[address] [place] [phone] documented as of this encounter Visit Diagnoses Not on filedocumented in this encounter Additional Health Concerns Assessment Noted Time PHQ-9 Depression Total Score: 0 12/06/19 18 3:00 PM EDT documented as of this encounter Care Teams Pipe Bender Relationship Specialty Start Date End Date Edgar Fournier MD [address] [place] [address] [place] [address] PCP - General 12/22/21 Maile Valles, RN Txp Post Coordinator Transplant Hepatology 11/07/17 Jack Ordoñez MD [address] [place] [phone] Consulting Physician Transplant Hepatology 01/05/18 Estephania Sharif, DarrianD Pharmacist Pharmacist 11/11/19 documented as of this encounter
--- OUTSIDE RECORDS SUMMARY | 2024-07-12 12:26 | XMS_ITS | Encounter Summary ---
Author Organization [facility] Address [address] [place] [address] Care Team Providers Care Pre K Special Education Teacher Name Role Phone Maile Valles RN Unavailable Unavail able Jack Ordoñez MD Unavailable [phone] Estephania Sharif PharmD Unavailable Christine Edgar Tolentino MD Primary Care Provider [phone] Source Comments This information has been disclosed [...] release of HIV test results or diagnoses. [id number] Reason for Visit * Reason Comments Paperwork Other Letter or card 1st Attempt 07/26/2023 at 3:08 PM Encounter Details Date Type Department Care Team (Late st Contact Info) Description 07/26/2023 Telephone [facility] Advanced Heart Failure at [facility] [address] [facility] [address] [place] [address] Humza Riley CNP Paperwork (Other Letter or card 1st Attempt 07/26/2023 at 3:08 PM ) Social History Tobacco Use Types Packs/Day [...] encounter Miscellaneous Notes * Telephone Encounter - Sarah Mota MA - 07/26/2023 3:08 PM EST Pt went to get a MRI today and it was cancelled. Pt states he has a cardio mem and needs a card or letting stating what dose the MRI needs to be. Pt can be reached at [phone] documented in this encounter Plan of Treatment Upcoming Encounters Date Type Department Care Team (Late st Contact Info) Description 07/15/2024 9:00 AM EST Hospital Encounter [facility] Interventional Radiology [address] [facility] [place] [address] Herve Carrillo MD 6880 [facility] 3200 [place] [address] documented as of this encounter Visit Diagnoses Not on filedocumented in this encounter Additional Health Concerns Infection Onset Date Last Indicated Resolved Time Rule Out C. difficile 11/05/2023 11/06/20232023 10:01 PM EDT Assessment Noted Time PHQ-9 Depression Total Score: 0 12/06/19 3:00 PM EDT documented as of this encounter Care Teams Pre K Special Education Teacher Relationship Specialty Start Date End Date Edgar Fournier MD [address] [place] [address] [place] [address] PCP - General 12/22/21 Maile Valles, RN Txp Post Coordinator Transplant Hepatology 11/07/17 Jack Ordoñez MD [address] [place] [phone] Consulting Physician Transplant Hepatology 01/05/18 Estephania Sharif, PharmD Pharmacist Pharmacist 11/11/19 documented as of this encounter
--- OUTSIDE RECORDS SUMMARY | 2024-07-12 12:26 | XMS_ITS | Encounter Summary ---
Author Organization [facility] Address [address] [place] [address] Care Team Providers Care Dust Mixer Name Role Phone Maile Valles RN Unavailable Unavail able Jack Ordoñez MD Unavailable [phone] Estephania Sharif PharmD Unavailable Christine Edgar Tolentino MD Primary Care Provider [phone] Source Comments This information has been disclosed [...] release of HIV test results or diagnoses. [id number] Health Encounter Details Date Type Department Care Team (Late st Contact Info) Description 01/12/2023 Telephone [facility] Liver Transplant at [address] [place] [address] Maile Valles, JANA Social History Tobacco Use Types Packs/Day [...] encounter Miscellaneous Notes * Telephone Encounter - Maile Valles RN - 01/12/2023 10:16 AM EDT Spoke with Marilyn Diaz RN. Patient having dialysis catheter removed today which progressed toa surgical procedure due to difficulty. Had some questions regarding medications. Answered all questions. documented in this encounter Plan of Treatment Upcoming Encounters Date Type Department Care Team (Late st Contact Info) Description 07/15/2024 9:00 AM EST Hospital Encounter [facility] Interventional Radiology [address] [place] [phone] Herve Carrillo MD 3130 [facility] [address] [place] [phone] documented as of this encounter Visit Diagnoses Not on filedocumented in this encounter Additional Health Concerns Assessment Noted Time PHQ-9 Depression Total Score: 0 12/06/19 18 3:00 PM EDT documented as of this encounter Care Teams Dust Mixer Relationship Specialty Start Date End Date Edgar Fournier MD [address] [place] [address] [place] [phone] PCP - General 12/22/21 Maile Valles, JANA Txp Post Coordinator Transplant Hepatology 11/07/17 Jack Ordoñez MD [address] [place] [address], [place] [phone] Consulting Physician Transplant Hepatology 01/05/18 Estephania Sharif, DarrianD Pharmacist Pharmacist 11/11/19 documented as of this encounter
--- OUTSIDE RECORDS SUMMARY | 2024-07-12 12:26 | XMS_ITS | Encounter Summary ---
Author Organization [facility] Address [address] [place] [address] Care Team Providers Care Imaging Tech Name Role Phone Maile Valles RN Unavailable Unavail able Jack Ordoñez MD Unavailable [phone] Estephania Sharif PharmD Unavailable Christine Edgar Tolentino MD Primary Care Provider [phone] Source Comments This information has been disclosed [...] release of HIV test results or diagnoses. [id number] Health Encounter Details Date Type Department Care Team (Late st Contact Info) Description 03/01/2023 Telephone [facility] Advanced Heart Failure at [facility] [address] [facility] [address] [place] [address] Humza Riley CNP Social History Tobacco Use Types Packs/Day Years [...] encounter Miscellaneous Notes * Telephone Encounter - Humza Riley CNP - 03/01/2023 11:27 AM EDT Spoke with pt and instructed to stop taking lisinopril as was not instructed to start it yet. documented in this encounter Plan of Treatment Upcoming Encounters Date Type Department Care Team (Late st Contact Info) Description 07/15/2024 9:00 AM EST Hospital Encounter [facility] Interventional Radiology [address] [place] [address] [phone] Herve Carrillo MD [address] [facility] [address] [facility] [place] [address] documented as of this encounter Visit Diagnoses Not on filedocumented in this encounter Additional Health Concerns Assessment Noted Time PHQ-9 Depression Total Score: 0 12/06/19 18 3:00 PM EDT documented as of this encounter Care Teams Imaging Tech Relationship Specialty Start Date End Date [place] [address] PCP - General 12/22/21 Maile Valles, RN Txp Post Coordinator Transplant Hepatology 11/07/17 Jack Ordoñez MD [address] [place] [address] [phone] Consulting Physician Transplant Hepatology 01/05/18 Estephania Sharif, DarrianD Pharmacist Pharmacist 11/11/19 documented as of this encounter
--- OUTSIDE RECORDS SUMMARY | 2024-07-12 12:26 | XMS_ITS | Encounter Summary ---
Author Organization [facility] Address [address] [place] [address] Care Team Providers Care Director Of Content And Programming Name Role Phone Maile Valles RN Unavailable Unavail able Jack Ordoñez MD Unavailable [phone] Estephania Sharif PharmD Unavailable Christine Edgar Tolentino MD Primary Care Provider [phone] Source Comments This information has been disclosed [...] release of HIV test results or diagnoses. [id number] Health Encounter Details Date Type Department Care Team (Late st Contact Info) Description 12/16/2022 Telephone [facility] Kidney Transplant at [address] [place] [address] Ana Santoyo, JANA Social History Tobacco Use Types Packs/Day [...] encounter Miscellaneous Notes * Telephone Encounter - Ana Santoyo RN - 12/16/2022 10:35 AM EDT Reached out to patient after receiving voice message asking for a return call. Spoke with patient and he was asking where he needed to be at to send in new referral and if Dr. Michael had discussed with anyone about approving for txp. Explained there were no notes showing a conversation between him and txp team. Explained that pt would need to have his BMI 40 or below and in pounds that would be about 270-271 lbs. Pt had no further questions documented in this encounter Plan of Treatment Upcoming Encounters Date Type Department Care Team (Late st Contact Info) Description 07/15/2024 9:00 AM [facility] Hospital Encounter [facility] Interventional Radiology [address] [place] [address] Herve Carrillo MD [address] [facility] [address] [place] [address] documented as of this encounter Visit Diagnoses Not on filedocumented in this encounter Additional Health Concerns Assessment Noted Time PHQ-9 Depression Total Score: 0 12/06/19 18 3:00 PM EDT documented as of this encounter Care Teams Director Of Content And Programming Relationship Specialty Start Date End Date Edgar Fournier MD [address] [place] [address] [place] [address] PCP - General 12/22/21 Maile Valles, RN Txp Post Coordinator Transplant Hepatology 11/07/17 Jack Ordoñez MD [facility] [place] [address] Consulting Physician Transplant Hepatology 01/05/18 Estephania Sharif, PharmD Pharmacist Pharmacist 11/11/19 documented as of this encounter
--- OUTSIDE RECORDS SUMMARY | 2024-07-12 12:26 | XMS_ITS | Encounter Summary ---
Author Organization [facility] Address [address] [place] [address] Care Team Providers Care Gas Compressor Turbine Operator Name Role Phone Maile Valles RN Unavailable Unavail able Jack Ordoñez MD Unavailable [phone] Estephania Sharif PharmD Unavailable Christine Edgar Tolentino MD Primary Care Provider [phone] Source Comments This information has been disclosed [...] release of HIV test results or diagnoses. [id number] Reason for Visit * Reason Comments Medication Refill Encounter Details Date Type Department Care Team (Late st Contact Info) Description 02/03/2023 Refill [facility] Liver Transplant at [facility] [address] [facility] [address] [place] [address] Jack Ordoñez MD [address] [place] [address] Social History Tobacco Use Types [...] Description 07/15/2024 9:00 AM EST Hospital Encounter [facility] Interventional Radiology [address] [place] [phone] Herve Carrillo MD [address] [facility] [address] [place] [address] documented as of this encounter Visit Diagnoses Not on filedocumented in this encounter Additional Health Concerns Assessment Noted Time PHQ-9 Depression Total Score: 0 12/06/19 18 3:00 PM EDT documented as of this encounter Care Teams Gas Compressor Turbine Operator Relationship Specialty Start Date End Date Edgar Fournier MD [address] [place] [address] [place] [address] PCP - General 12/22/21 Maile Valles, JANA Txp Post Coordinator Transplant Hepatology 11/07/17 Jack Ordoñez MD [address] [place] [phone] Consulting Physician Transplant Hepatology 01/05/18 Estephania Sharif, PharmD Pharmacist Pharmacist 11/11/19 documented as of this encounter
--- OUTSIDE RECORDS SUMMARY | 2024-07-12 12:26 | XMS_ITS | Encounter Summary ---
Author Organization [facility] Address [facility] [place] [address] Care Team Providers Care Casing Operator Name Role Phone Maile Valles RN Unavailable Unavail able Jack Ordoñez MD Unavailable Estephania Sharif PharmD Unavailable Christine Edgar Tolentino MD Primary Care Provider [phone] Source Comments This information has been disclosed [...] release of HIV test results or diagnoses. [id number] Encounter Details Date Type Department Care Team (Latest Contact Info) Description 02/06/2023 Travel Social History Tobacco Use Types Packs/Day [...] Description 07/15/2024 9:00 AM EST Hospital Encounter [facility] Interventional Radiology [address] [place] [phone] Herve Carrillo MD [address] [facility] [address] [facility] [place] [address] documented as of this encounter Visit Diagnoses Not on filedocumented in this encounter Additional Health Concerns Assessment Noted Time PHQ-9 Depression Total Score: 0 12/06/19 18 3:00 PM EDT documented as of this encounter Care Teams Casing Operator Relationship Specialty Start Date End Date Edgar Fournier MD [address] [place] [address] [place] [address] PCP - General 12/22/21 Maile Valles, RN Txp Post Coordinator Transplant Hepatology 11/07/17 Jack Ordoñez MD [address] [place] [phone] Consulting Physician Transplant Hepatology 01/05/18 Estephania Sharif, DarrianD Pharmacist Pharmacist 11/11/19 documented as of this encounter
--- OUTSIDE RECORDS SUMMARY | 2024-07-12 12:26 | XMS_ITS | Encounter Summary ---
Author Organization [facility] Address [facility] [place] [address] Care Team Providers Care Licensed Chemical Spray Technician Name Role Phone Maile Valles RN Unavailable Unavail able Jack Ordoñez MD Unavailable Estephania Sharif PharmD Unavailable Christine Edgar Tolentino MD Primary Care Provider [phone] Source Comments This information has been disclosed [...] release of HIV test results or diagnoses. [id number] Encounter Details Date Type Department Care Team (Latest Contact Info) Description 11/22/2022 Travel Social History Tobacco Use Types Packs/Day [...] Encounter [facility] Interventional Radiology [address] [place] [phone] Herve Carrillo MD [address] [facility] [address] [place] [address] documented as of this encounter Visit Diagnoses Not on filedocumented in this encounter Additional Health Concerns Assessment Noted Time PHQ-9 Depression Total Score: 0 12/06/19 18 3:00 PM EDT documented as of this encounter Care Teams Licensed Chemical Spray Technician Relationship Specialty Start Date End Date Edgar Fournier MD [address] [place] [address] [place] [address] PCP - General 12/22/21 Maile Valles, RN Txp Post Coordinator Transplant Hepatology 11/07/17 Jack Ordoñez MD [address] [place] [phone] Consulting Physician Transplant Hepatology 01/05/18 Estephania Sharif, DarrianD Pharmacist Pharmacist 11/11/19 documented as of this encounter
--- OUTSIDE RECORDS SUMMARY | 2024-07-12 12:26 | XMS_ITS | Encounter Summary ---
Author Organization [facility] Address [address] [place] [address] Care Team Providers Care Bar Useful Or Busser Name Role Phone Maile Valles RN Unavailable Unavail able Jack Ordoñez MD Unavailable [phone] Estephania Sharif PharmD Unavailable Christine Edgar Tolentino MD Primary Care Provider [phone] Source Comments This information has been disclosed [...] release of HIV test results or diagnoses. [id number] Health Encounter Details Date Type Department Care Team (Late st Contact Info) Description 07/19/2023 Telephone [facility] Liver Transplant at [address] [place] [address] Lynnette Muhammad MA Social History Tobacco [...] Telephone Encounter - Lynnette Muhammad MA - 07/19/2023 12:29 PM EST Pt called to let us know that he is shaking more and feels very drowsy. Went to the ER yesterday silvia but they check his blood work but everything looked okay. Pt doesn't know what to do, he states he just doesn't feel right. Call transferred to [facility]. documented in this encounter Plan of Treatment Upcoming Encounters Date Type Department Care Team (Late st Contact Info) Description 07/15/2024 9:00 AM EST Hospital Encounter [facility] Interventional Radiology [address] [place] [phone] Herve Carrillo MD [address] [facility] [address] [place] [address] documented as of this encounter Visit Diagnoses Not on filedocumented in this encounter Additional Health Concerns Assessment Noted Time PHQ-9 Depression Total Score: 0 12/06/19 18 3:00 PM EDT documented as of this encounter Care Teams Bar Useful Or Busser Relationship Specialty Start Date End Date Edgar [place] [address] PCP - General 12/22/21 Maile Valles, RN Txp Post Coordinator Transplant Hepatology 11/07/17 Jack Ordoñez MD [address] [place] [phone] Consulting Physician Transplant Hepatology 01/05/18 Estephania Sharif, DarrianD Pharmacist Pharmacist 11/11/19 documented as of this encounter
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
--- OUTSIDE RECORDS SUMMARY | 2024-07-12 12:26 | XMS_ITS | Encounter Summary ---
Author Organization [facility] Address [address] [place] [address] Care Team Providers Care Supervisor Coffee Name Role Phone Maile Valles RN Unavailable Unavail able Jack Ordoñez MD Unavailable [phone] Estephania Sharif PharmD Unavailable Christine Edgar Tolentino MD Primary Care Provider [phone] Source Comments This information has been disclosed [...] release of HIV test results or diagnoses. [id number] Health Encounter Details Date Type Department Care Team (Late st Contact Info) Description 10/11/2023 Telephone [facility] Liver Transplant at [address] [place] [address] Estrella Goodrich MA Social History [...] Telephone Encounter - Estrella Goodrich MA - 10/13/2023 9:46 AM EST Relayed message to pt that this is OK from txp perspective. Pt wondering if this is something that can be done at and if we have a contact number for this. Reviewed chart and provided number to [facility] weight loss center. Referral to department still active for another few weeks. Encouraged pt to call number and ask if they offer procedure. * Telephone Encounter - Maile Valles RN - 10/12/2023 3:[address] Ordoñez: He does not have a contra-indication for this - ok from pa Txp MA to update patient. * Telephone Encounter - Estrella Goodrich MA - 10/11/2023 1:19 PM EST Pt called to ask if transplant patients are OK to have gastric balloon surgery. Pt states they spoke with someone at who provided them more information on this procedure. Pt is curious if txp teamhas any comments on if this is something that the pt can consider for weight loss. documented in this encounter Plan of Treatment Upcoming Encounters Date Type Department Care Team (Late st Contact Info) Description 07/15/2024 9:00 AM EST Hospital Encounter [facility] Interventional Radiology [address] [place] [address] Herve Carrillo MD [address] [facility] [[email or web address] [address] Surgery [place] [phone] documented as of this encounter Visit Diagnoses Not on filedocumented in this encounter Additional Health Concerns Assessment Noted Time PHQ-9 Depression Total Score: 0 12/06/19 18 3:00 PM EDT documented as of this encounter Care Teams Supervisor Coffee Relationship Specialty Start Date End Date Edgar Fournier MD [address] [place] [address] [place] [address] PCP - General 12/22/21 Maile Valles, JANA Txp Post Coordinator Transplant Hepatology 11/07/17 Jack Ordoñez MD [address] [place] [phone] Consulting Physician Transplant Hepatology 01/05/18 Estephania Sharif, DarrianD Pharmacist Pharmacist 11/11/19 documented as of this encounter
--- OUTSIDE RECORDS SUMMARY | 2024-07-12 12:26 | XMS_ITS | Encounter Summary ---
Author Organization [facility] Address [address] [place] [address] Care Team Providers Care Motor And Generator Brush Maker Name Role Phone Maile Valles RN Unavailable Unavail able Jack Ordoñez MD Unavailable [phone] Estephania Sharif PharmD Unavailable Christine Edgar Tolentino MD Primary Care Provider [phone] Source Comments This information has been disclosed [...] release of HIV test results or diagnoses. [id number] Reason for Visit * Diagnostic Imaging (Routine) - Closed Specialty Diagnoses / Procedures Referred By Contac t Referred To Contact Diagnoses Pre-transplant evaluation for kidney transplant Hypertension, unspecified type Pulmonary HTN (CMS-HCC) Procedures Cath Case Request: Right Heart Cath and admission for optimization VT RIGHT HEART CATH O2 SATURATION & CARDIAC OUTPUT Fermín Schulte MD Ahmad, Saad S, MD Referral ID Status Reason Start Date Expiration Date Visits Re quested Visits Authorized [id number] Closed 11/15/2022 05/14/2023 1 1 Encounter Details Date Type Department Care Team (Late st Contact Info) Description 11/22/2022 3:10 PM EDT - 11/22/2022 4:06 PM EDT Surgery [facility] Cardiac Stripper Shovel Operator [address] [place] [phone] Oliver Reed MD [address] [facility] Cardiology [place], [place] [id number] Right Heart Cath and admission for optimization Surgery Details Date/Time Status Location OR Service Patient Class Case Class Case Type Trauma Case? 11/22/2022 3:10 PM Posted CARDIAC CATH LABS CATH 03 Cath Hosp OP Surg/Ambula tory Panel 1 Procedure LRB Anes Op Region Wound Class Comments Right Heart Cath and admissi on for optimization N/A Moderate Sedation Surgeon Surgeon Role Service Panel Oliver Reed MD Primary Cath 1 documented in this encounter Social History Tobacco [...] Sign Reading Time Taken Comments Blood Pressure 145/90 11/22/2022 2:40 PM EDT Pulse 82 11/22/2022 4:03 PM EDT Temperature 36.7 ??C (98 ??F) 11/22/2022 2:17 PM EDT Respiratory Rate 17 11/22/2022 4:03 PM EDT Oxygen Saturation 94% 11/22/2022 4:03 PM EDT Inhaled Oxygen Concentration 94% 11/22/2022 4 :03 PM EDT Weight 134.6 kg (296 lb 12.8 oz) 11/22/2022 1:55 PM EDT Height 175.3 cm (5' 9 ) 11/22/2022 1:55 PM EDT Body Mass Index 43.83 11/22/2022 1:55 PM EDT documented in this encounter Medications at Time of Discharge aspirin 81 MG chewable tablet Chew 1 tablet (81 mg total) by mouth daily with breakfast. 30 tablet 5 8 carBAMazepine (TEGRETOL) 200 mg tablet Take 1 tablet (200 mg total) by mouth 2 times a day. doxazosin (CARDURA) 8 MG tablet Take 1 tablet (8 mg total) by mouth at bedtime. 8 entecavir (BARACLUDE) 0.5 MG tablet Take 1 tablet (0.5 mg total) by mouth every 7 days. 4 tablet 5 1 folic acid (FOLVITE) 1 MG tablet Take 1 tablet (1 mg total) by mouth daily. 30 tablet 2 methocarbamoL (ROBAXIN) 500 MG tablet Take 1 [...] Inject into the muscle every 28 days. ALPRAZolam (XANAX) 0.5 MG tablet Take 1 tablet (0.5 mg total) by mouth if needed for Sleep. 02/08/20 23 calcium acetate,phosphat bind, (PHOSLO) 667 mg capsule Take 1 capsule (667 mg total) by mouth 3 times a day with meals. And snacks 09/05/19 24 carvediloL (COREG) 25 MG tabletIndications:P re-transplant evaluation for kidney transplant,Pulmonar y HTN (CMS-HCC),Essential (primary) hypertension Take 2 tablets (50 mg total) by mouth 2 times a day with meals. 180 tablet 5 2 01/25/20 24 cholecalciferol, vitamin D3, 1,250 mcg (50,000 unit) capsule Take 1 capsule by mouth three times weekly on Monday, , and Monday. 2 02/08/20 23 cinacalcet (SENSIPAR) 30 MG tablet Take 1 tablet (30 mg total) by mouth daily with breakfast. 30 tablet 2 02/08/20 23 cycloSPORINE modified 25 MG capsule Take 4 capsules (100 mg total) by mouth 2 times a day. 720 capsule 1 02/09/2023 8:47 AM EDT 3 04/28/20 23 ferrous sulfate 325 (65 FE) MG tablet Take 1 tablet (325 mg total) by mouth daily with breakfast. 30 tablet 2 02/08/20 23 gabapentin (NEURONTIN) 100 MG capsule Take 1 capsule (100 mg total) by mouth 3 times a day. 90 capsule 03/25/2022 3:34 PM EDT 2 11/09/19 24 HUMULIN N NPH INSULIN KWIKPEN 100 unit/mL (3 mL) InPn if needed. 05/11/20 2 2 09/05/19 24 hydrALAZINE (APRESOLINE) 100 MG tablet Take 1 tablet (100 mg total) by mouth every 8 hours. 120 tablet 0 11/09/19 24 lisinopriL (PRINIVIL) 40 MG tablet Take 1 tablet (40 mg total) by mouth daily. 30 tablet 5 2 02/08/20 23 metroNIDAZOLE (FLAGYL) 500 MG tablet 3 02/08/20 23 mycophenolate (CELLCEPT) 250 mg capsule Take 1 capsule (250 mg total) by mouth 2 times a day. 180 capsule 1 11/15/2022 3:19 PM EDT 3 02/04/20 23 ondansetron (ZOFRAN-ODT) 4 MG disintegrating tablet Take 1 tablet (4 mg total) by mouth every 8 hours as needed. 8 04/28/20 24 OZEMPIC 1 mg/dose (4 mg/3 mL) PnIj inject 1 syringe as directed inject below skin once weekly in place of monjarno 3 02/08/20 proMETHazine (PHENERGAN) 12.5 MG tablet Take 1 tablet (12.5 mg total) by mouth every 6 hours as needed. 02/08/20 23 sevelamer carbonate (RENVELA) 800 mg tablet Take 2 tablets (1,600 mg total) by mouth 3 times a day with meals. 09/05/19 24 spironolactone (ALDACTONE) 25 MG tabletIndications:P ulmonary HTN ([facility]) Take 1 tablet (25 mg total) by mouth daily. 90 tablet 1 2 02/08/20 VASCEPA 1 gram Cap TAKE 2 Capsule by mouth twice daily 2 01/25/20 24 zolpidem (AMBIEN) 10 mg tablet Take 1 tablet (10 mg total) by mouth at bedtime as needed. 2 02/08/20 documented as of this encounter Nursing Notes * Lina Metzger RN - 11/22/2022 5:13 PM EDT Discharge order received. Bedrest completed at 1700. Pt removed from telemetry to ambulate and get dressed. Reviewed discharge instructions with patient including; resuming home medications per usual schedule, follow up appointment, monitoring access site, activity restrictions, and when to call the doctor. Instructed patient on what to do if bleeding occurs. Copy of AVS given to patient. Pt verbalized understanding, denies any needs/concerns/questions at this time. PIV removed and pressure dressing placed to site. Pt son coming here to escort patient home for discharge. Awaiting hospital transportation to take patient to vehicle. documented in this encounter Plan of Treatment Upcoming Encounters Date Type Department Care Team (Late st Contact Info) Description 07/15/2024 9:00 AM EST Hospital Encounter [facility] Interventional Radiology [address] [place] [phone] Herve Carrillo MD [address] Surgery [place] [phone] documented as of this encounter Procedures Procedure Name Priority Date/Time Associated Diagnosis Comments RIGHT HEART CATH Routine 11/22/2022 3:53 PM EDT Pre-transplant evaluation for kidney transplant Hypertension, unspecified type Pulmonary HTN (CMS-HCC) POC TOTAL HEMOGLOBIN Routine 11/22/2022 3:39 PM EDT POC OXYHEMOGLOBIN Routine 11/22/2022 3:3 9 PM EDT POC TOTAL HEMOGLOBIN Routine 11/22/2022 3:37 PM EDT POC OXYHEMOGLOBIN Routine 11/22/2022 3:3 7 PM EDT POC GLU MONITORING DEVICE Routine 11/22/2022 3:02 PM EDT PROTIME-INR STAT 11/22/2022 2:10 PM EDT CBC STAT 11/22/2022 2:10 PM EDT BASIC METABOLIC PANEL STAT 11/22/2022 2:10 PM EDT CARDIAC CATH DOCUMENTS SCAN 11/22/2022 3:48 AM EDT documented in this encounter Results * RIGHT HEART CATH (11/22/2022 3:53 PM EDT) 11/22/2022 3:11 PM EDT Narrative [facility] - 11/25/2022 10:32 PM EDT *[facility]* Cardiac Stripper Shovel Operator [address] [place], [place] [address] CATHETERIZATION LAB STUDY Patient: ? Aiden Stauffer ?Age: ?47 ?Study Date: ? 11/22/2022 ? Gender: M ? Study Time: ? 03:11:03 PM : ? 1975 ? HT/WT: ??175.3cm / 134.5kg ? Performing Physician: ? Oliver Reed MD Ordering Physician: ? Fermín Schulte MD Fellow: ? Gabino Prasad Procedures performed: - Right heart catheterization. IMPRESSIONS: 1. Mildly elevated right sided and PA pressures. 2. Preserved cardiac output. RECOMMENDATIONS: ??Further management per outpatient team. INDICATIONS: ?? Pulmonary Hypertension. ??Mitral valve vegetatioin (I33.0). PROCEDURE IN DETAIL: ?? Study status: ??Cardiac cath: urgent. Consent: ??The risks, benefits, and alternatives to the procedure and sedation were explained to the patient and informed consent was obtained. ? Location: ??Catheterization laboratory. PROCEDURE: 1. Initial setup. The patient was brought to the laboratory. Surface ECG leads, blood pressure ?? measurements, and pulse oximetric signals were monitored. 2. Skin preparation. The planned puncture sites were prepped and draped in the usual sterile manner. 3. Right internal jugular vein access. A 4f swiftQueue mini access kit sheath was advanced into the ?? vessel. 4. Sheath exchange. The sheath was exchanged for a [id number] [place] sheath. 5. Right heart catheterization. A 7F Catheter, Otis-Neeru TD catheter was advanced via the access ?? site into the right atrium, right ventricle, pulmonary artery and wedge position under ?? fluoroscopic guidance. 6. Sedation. The procedure was performed using moderate (conscious) sedation under my personal ?? supervision. A trained, dedicated, and qualified observer monitored the patient. The following ?? parameters were monitored: oxygen saturation, heart rate, blood pressure, respiratory rate, ?? adequacy of pulmonary ventilation, and response to care. Sedation and monitoring were provided ?? for greater than 15 minutes. STUDY COMPLETION: ??All catheters inserted during the procedure were removed. The patient tolerated the procedure well. There were no complications. Hemodynamics: Circulatory function: + + + !Stage description ?!Condition 1 - Abelino ?! + + + !O2 uptake, hemoglobin ?!Hgb: 13.4g/dl ? ! + + + !Cardiac output (Qs) ?!7.5L/min ?! + + + !Cardiac index ?!3.06L/(min-m^2) ? ! + + + !HR, R-R, stroke volume ?? !80bpm, 93ml ? ! + + + !RA pressure a/v (m) ?!07/25 () ?! + + + !RV pressure s/d, ed ?! ? ! + + + !PA wedge a/v (m) ? ! () ?! + + + !MPA pressure s/d (m) ? !44/20 (30) ?! + + + !Aortic pressure s/d (m) ??!131/88 (102) ?! + + + !SVR ?!964dyn-sec/cm5 ?! + + + !SVRI ? !2444xhy-uxm-s^2/cm5 ? ! + + + !PVR ?!161dyn-sec/cm5 ?! + + + !PVRI ? !701qnh-tgr-d^2/cm5 ?! + + + !Total systemic resistance!1092dyn-sec/cm5, 2206ufd-dde-z^2/cm5! + + + Saturations: + + + !Stage description !Condition 1 -! + + + !Saturation, RA ?!72.8% ?! + + + !Saturation, PA/MPA!71.6% ?! + + + !Saturation, aorta !94% ?! + + + ATTESTATION: Dr. Reed was present for the entire procedure. Dr. Prasad was the initial author of this report. Prepared and electronically signed by Oliver Reed MD [id number] Procedure Note Oliver Reed MD - 11/25/2022 *[facility]* Cardiac Stripper Shovel Operator [address] [place] [address] CATHETERIZATION LAB STUDY Patient: Aiden Stauffer Age: 47 StudyDate: 11/22/2022 Gender: M StudyTime: 03:11:03 PM : 1975 HT/WT: 175.3cm / 134.5kg Performing Physician: Oliver Reed MD Ordering Physician: Fermín Schulte MD Fellow: Gabino Prasad Procedures performed: - Right heart catheterization. IMPRESSIONS: 1. Mildly elevated right sided and PA pressures. 2. Preserved cardiac output. RECOMMENDATIONS: Further management per outpatient team. INDICATIONS: Pulmonary Hypertension. Mitral valve vegetatioin (I33.0). PROCEDURE IN DETAIL: Study status: Cardiac cath: urgent. Consent: The risks, benefits, and alternatives to the procedure and sedation were explained to the patient and informed consent was obtained. Location: Catheterization laboratory. PROCEDURE: 1. Initial setup. The patient was brought to the laboratory. Surface ECGleads, blood pressure measurements, and pulse oximetric signals were monitored. 2. Skin preparation. The planned puncture sites were prepped and draped inthe usual sterile manner. 3. Right internal jugular vein access. A 4f BullionVault-BERNARD mini access kitsheath was advanced into the vessel. 4. Sheath exchange. The sheath was exchanged for a [id number] Pinnaclesheath. 5. Right heart catheterization. A 7F Catheter, Otis-Neeru TD catheter wasadvanced via the access site into the right atrium, right ventricle, pulmonary artery and wedgeposition under fluoroscopic guidance. 6. Sedation. The procedure was performed using moderate (conscious)sedation under my personal supervision. A trained, dedicated, and qualified observer monitored thepatient. The following parameters were monitored: oxygen saturation, heart rate, bloodpressure, respiratory rate, adequacy of pulmonary ventilation, and response to care. Sedation andmonitoring were provided for greater than 15 minutes. STUDY COMPLETION: All catheters inserted during the procedure were removed. The patient tolerated the procedure well. There were no complications. Hemodynamics: Circulatory function: + + + !Stage description !Condition 1 - Abelino ! + + + !O2 uptake, hemoglobin !Hgb: 13.4g/dl ! + + + !Cardiac output (Qs) !7.5L/min ! + + + !Cardiac index !3.06L/(min-m^2) ! + + + !HR, R-R, stroke volume !80bpm, 93ml ! + + + !RA pressure a/v (m) !07/25 () ! + + + !RV pressure s/d, ed ! ! + + + !PA wedge a/v (m) ! (15) ! + + + !MPA pressure s/d (m) !44/20 (30) ! + + + !Aortic pressure s/d (m) !131/88 (102) ! + + + !SVR !964dyn-sec/cm5 ! + + + !SVRI !7274esa-nzo-u^2/cm5 ! + + + !PVR !161dyn-sec/cm5 ! + + + !PVRI !691fym-sfl-k^2/cm5 ! + + + !Total systemic resistance!1092dyn-sec/cm5, 8867ihe-frk-w^2/cm5! + + + Saturations: + + + !Stage description !Condition 1 -! + + + !Saturation, RA !72.8% ! + + + !Saturation, PA/MPA!71.6% ! + + + !Saturation, aorta !94% ! + + + ATTESTATION: Dr. Reed was present for the entire procedure. Dr. Prasad was the initial author of this report. Prepared and electronically signed by Oliver Reed MD [id number] Fermín [place] [id number] Final Result Performing Organization Address City/[facility]/ZIP Co de Phone Number [facility] * (ABNORMAL) POC Oxyhemoglobin (11/22/2022 3:39 PM EDT) Pathologist [facility] POC Oxyhemoglobin 71.6(L) 95 - 98 % 023 3:40 PM EDT [facility] Comment:SEE CATH REPORT FOR COMPREHENSIVE RESULTS Blood, Arterial 11/22/2022 3 :39 PM EDT 11/22/2022 3:40 PM EDT us Fermín Schulte MD LAB BLOOD ORDERABLES Final Resul t [facility] [address] * (ABNORMAL) POC Total Hemoglobin (11/22/2022 3:39 PM EDT) POC Total Hemoglobin 12.0(L) 14.0 - 18.0 g/dL 11/22/2022 3:40 PM EDT [facility] Comment:SEE CATH REPORT FOR COMPREHENSIVE RESULTS Blood, Arterial 11/22/2022 3 :39 PM EDT 11/22/2022 3:40 PM EDT Result Yuri Schulte MD LAB BLOOD ORDERABLES Final Resul t Performing Organization Address [facility] Co de Phone Number [facility] [address] [facility]. [address] * (ABNORMAL) POC Oxyhemoglobin (11/22/2022 3:37 PM EDT) Pathologist [facility] POC Oxyhemoglobin 72.8(L) 95 - 98 % 023 3:37 PM EDT [facility] Comment:SEE CATH REPORT FOR COMPREHENSIVE RESULTS Blood, Arterial 11/22/2022 3 :37 PM EDT 11/22/2022 3:37 PM EDT Result Yuri Schulte MD LAB BLOOD ORDERABLES Final Resul t Performing Organization Address [facility] Co de Phone Number [facility] [address] [facility]. [address] * (ABNORMAL) POC Total Hemoglobin (11/22/2022 3:37 PM EDT) Pathologist [facility] POC Total Hemoglobin 12.1(L) 14.0 - 18.0 g/dL 11/22/2022 3:37 PM EDT [facility] Comment:SEE CATH REPORT FOR COMPREHENSIVE RESULTS Blood, Arterial 11/22/2022 3 :37 PM EDT 11/22/2022 3:37 PM EDT Result Yuri Schulte MD LAB BLOOD ORDERABLES Final Resul t [facility] [address] [facility] [address] * (ABNORMAL) POC Glucose Monitoring Device (11/22/2022 3:02 PM EDT) POC Glucose Monitoring Device 101(H) 70 - 100 mg/dL 11/22/2022 3:03 PM EDT [facility] Blood 11/22/2022 3:02 PM EDT 11/22/2022 3:03 PM EDT us Fermín Schulte MD POINT OF CARE TEST ORDERABLES Fi nal Result [facility] [address] * Protime-INR (11/22/2022 2:10 PM EDT) Protime 12.8 12.1 - 15.1 seconds 11/22/2022 2:51 PM EDT [facility] INR 0.9 0.9 - 1.1 11/22/2022 2:51 PM EDT [facility] Comment: RECOMMENDED THERAPEUTIC RANGES USING INR : ?Stable oral anticoagulant therapy: ? 2.0 - 3.0 ?Mechanical prosthetic heart valve: ? 2.5 - 3.5 ?Recurrent acute myocardial infarction: ? 2.5 - 3.5 Plasma 11/22/2022 2:10 PM EDT 11/22/2022 2:27 PM EDT Narrative [facility] - 11/22/2022 2:51 PM EDT If not done within 14 days or preform day of procedure for any patients with liver issues or on Coumadin us Darling Farfan [facility] BLOOD ORDERABLES Final Res ult [facility] [address] [place] [address], [facility] * (ABNORMAL) Basic metabolic panel (11/22/2022 2:10 PM EDT) Sodium 138 133 - 146 mmol/L 11/22/2022 3:18 PM EDT [facility] Potassium SEE COMMENT 3.5 - 5.3 mmol/L 11/22/2022 3:18 PM EDT [facility] Comment:Specimen Grossly Hem olyzed. Potassium result not obtainable. Recollect specimen. Chloride 95(L) 98 - 110 mmol/L 11/22/2022 3:18 PM EDT [facility] CO2 30 21 - 33 mmol/L 11/22/2022 3:18 PM EDT [facility] Comment:MODERATE TO GROSS HE MOLYSIS EVIDENT. RESULTS MAY BE INFLUENCED. Anion Gap 13 3 - 16 mmol/L 11/22/2022 3:18 PM EDT [facility] BUN 64(H) 7 - 25 mg/dL 11/22/2022 3:18 PM EDT [facility] Comment:MODERATE TO GROSS HE MOLYSIS EVIDENT. RESULTS MAY BE INFLUENCED. Creatinine 9.87(H) 0.60 - 1.30 mg/dL 11/22/2022 3:18 PM EDT [facility] Comment:MODERATE TO GROSS HE MOLYSIS EVIDENT. RESULTS MAY BE INFLUENCED. Glucose 94 70 - 100 mg/dL 11/22/2022 3:18 PM EDT [facility] Comment:MODERATE TO GROSS HE MOLYSIS EVIDENT. RESULTS MAY BE INFLUENCED. Calcium 10.1 8.6 - 10.3 mg/dL 11/22/2022 3:18 PM EDT [facility] Comment:MODERATE TO GROSS HE MOLYSIS EVIDENT. RESULTS MAY BE INFLUENCED. Osmolality, Calculated 304 278 - 305 mOsm/kg 11/22/2022 3:18 PM EDT [facility] EGFR 6 11/22/2022 3:18 PM EDT [facility] Comment:As of 2021, the estimated [...] Disease. Am J Kidney Dis. 2020. Plasma 11/22/2022 2:10 PM EDT 11/22/2022 2:27 PM EDT Narrative [facility] - 11/22/2022 3:18 PM EDT If not done within 14 days or previous BMP results were abnormal us Darling Farfan [facility] BLOOD ORDERABLES Final Res ult [facility] [address] * (ABNORMAL) CBC (11/22/2022 2:10 PM EDT) WBC 4.9 3.8 - 10.8 10E3/uL 11/22/2022 2:36 PM EDT [facility] RBC 3.99(L) 4.20 - 5.80 10E6/uL 11/22/2022 2:36 PM EDT [facility] Hemoglobin 13.4 13.2 - 17.1 g/dL 11/22/2022 2:36 PM EDT [facility] Hematocrit 41.0 38.5 - 50.0 % 11/22/2022 2:36 PM EDT [facility] MCV 102.8(H) 80.0 - 100.0 fL 11/22/2022 2:36 PM EDT [facility] MCH 33.7(H) 27.0 - 33.0 pg 11/22/2022 2:36 PM EDT [facility] MCHC 32.8 32.0 - 36.0 g/dL 11/22/2022 2:36 PM EDT [facility] RDW 15.9(H) 11.0 - 15.0 % 11/22/2022 2:36 PM EDT [facility] Platelets 177 140 - 400 10E3/uL 11/22/2022 2:36 PM EDT [facility] MPV 7.5 7.5 - 11.5 fL 11/22/2022 2:36 PM EDT [facility] Whole Blood 11/22/2022 2:10 PM EDT 11/22/2022 2:27 PM EDT Narrative [facility] - 11/22/2022 2:36 PM EDT If not done within 14 days or if previous CBC results were abnormal us Darling Farfan [facility] BLOOD ORDERABLES Final Res ult [facility] [address] [place] [address], [facility] * CARDIAC CATH DOCUMENTS SCAN (11/22/2022 3:48 AM EDT) us Scanning Uchhim SCAN DOCS - NO RESULTS Final Res ult documented in this encounter Visit Diagnoses Diagnosis Pre-transplant evaluation for kidney transplant Hypertension, unspecified type Pulmonary HTN (CMS-HCC) Pre-transplant evaluation for kidney transplant Hypertension, unspecified type Pulmonary HTN (CMS-HCC) documented in this encounter Administered Medications Inactive Administered Medications - up to 3 most recent administrations Medication Order MAR Action Action Date Dose Rate Site fentaNYL (SUBLIMAZE) injection 25 mcg 25 mcg, Intravenous, Once, On Mon11/22/22 at 1430, For 1 dose, HIGH ALERT MEDICATION Given 11/22/2022 3:24 PM EDT 25 mcg midazolam (PF) (VERSED) injection 1 mg 1 mg, Intravenous, Once, On e 11/22/22 at 1430, For 1 dose Given 11/22/2022 3:25 PM EDT 1 mg documented in this encounter Active and Recently Administered Medications Times are shown in EDT. Scheduled Medication Order 11/20/2022 11/21/2022 11/22/2022 fentaNYL (SUBLIMAZE) injection 25 mcg (COMPLETED) 25 mcg, Intravenous, Once, On Mon11/22/22 at 1430, For 1 dose, HIGH ALERT MEDICATION 1524 (Given - Provid er: Mandi Xie RN) midazolam (PF) (VERSED) injection 1 mg (COMPLETED) 1 mg, Intravenous, Once, On Mon11/22/22 at 1430, For 1 dose 1525 (Given - Provid er: Mandi Xie RN) documented in this encounter Additional Health Concerns Assessment Noted Time PHQ-9 Depression Total Score: 0 12/06/19 18 3:00 PM EDT documented as of this encounter Care Teams Motor And Generator Brush Maker Relationship Specialty Start Date End Date Edgar Fournier MD [address] [place] [address] Dr [place] [address] PCP - General 12/22/21 Maile Valles, JANA Txp Post Coordinator Transplant Hepatology 11/07/17 Jack Ordoñez MD [address] [place] [phone] Consulting Physician Transplant Hepatology 01/05/18 Estephania Sharif, DarrianD Pharmacist Pharmacist 11/11/19 documented as of this encounter
--- OUTSIDE RECORDS SUMMARY | 2024-07-12 12:26 | XMS_ITS | Encounter Summary ---
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 out of breath. Reports most active thing he does is walking. Can do ADLs no SOB but feels weak and tired. Reports this worsened over the last month - month and a half. Recently diagnosed with parathyroid issues. Not taking lisinopril or spironolactone - stopped by nephrology per pt, reports high potassium. Stopped prior to November 28 2022, was arturjarocho Haritha prior [phone]. Now on lokelma as well. Cmems in office and with PA mean goal < 30. 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 ICD / Lifevest no - transmit cmems, reached out to rep to contact pt - RN performed med rec, med list updated HTN- Nifedipine 90mg BID, hydralazine 100mg TID, doxazosin 8mg HS HLD- 10 year ASCVD risk < 7.5%, statin not indicated at this time. last LDL 63 - If should consider statin in future, caution with fenofibrate, reach out to liver txp DM type 2- last A1C 5.8 CKD- on HD at home, target wt. 133 kg. Is taking ASA 81mg - per renal - left message with [facility], Dr. Sky's office, to discuss if pt can be restarted on spironolactone and or lisinopril JC- - follow up with sleep med, gave new referral - CPAP Update: Kati from [facility] is returning a call to RAMON. Kati states Lisinopril was stopped on 11/28 due to a potassium of 6.4. Kati also states Spironolactone was stopped in November as well due to high potassium. Kati states Dr. Sky advised the pt he could restart Lisinopril but only if he starts Lokelma as well. ?? documented in this encounter Plan of Treatment Upcoming Encounters Date Type Department Care Team (Late st Contact Info) Description 07/15/2024 9:00 AM EST Hospital Encounter [facility] Interventional Radiology [address] [place] [address] Herve Carrillo MD 0725 [facility] [address] [place] [phone] Scheduled Referrals Name Type Priority Associated Diagnoses Orde r Schedule AMB REFERRAL TO SLEEP MEDICINE Outpatient Referral Routine Sleep apnea, unspecified type Ordered: 02/07/2023 documented as of this encounter Visit Diagnoses Diagnosis Sleep apnea, unspecified type- Primary documented in this encounter Additional Health Concerns Assessment Noted Time PHQ-9 Depression Total Score: 0 12/06/19 18 3:00 PM EDT documented as of this encounter Care Teams Irrigation Teacher Relationship Specialty Start Date End Date Edgar Fournier MD [address] [place] [address] [place] [address] PCP - General 12/22/21 Maile Valles, RN Txp Post Coordinator Transplant Hepatology 11/07/17 Jack Ordoñez MD [address] [place] [phone] Consulting Physician Transplant Hepatology 01/05/18 Estephania Sharif, DarrianD Pharmacist Pharmacist 11/11/19 documented as of this encounter
--- OUTSIDE RECORDS SUMMARY | 2024-07-12 12:26 | XMS_ITS | Encounter Summary ---
Author Organization [facility] Address [address] [place] [address] Care Team Providers Care Dice Dealer Name Role Phone Maile Valles RN Unavailable Unavail able Jack Ordoñez MD Unavailable [phone] Estephania Sharif PharmD Unavailable Christine Edgar Tolentino MD Primary Care Provider [phone] Source Comments This information has been disclosed [...] release of HIV test results or diagnoses. [id number] Health Encounter Details Date Type Department Care Team (Late st Contact Info) Description 12/01/2022 Telephone [facility] Kidney Transplant at [address] [place] [address] Bridgett Hernandez, RN Social History Tobacco Use Types Packs/Day [...] encounter Miscellaneous Notes * Telephone Encounter - Bridgett Hernandez RN - 12/01/2022 8:50 AM EDT Received message that Elizabeth HUTTON nurse called to ask about pt status. Called back and spoke with nurse. Advised pt is not currently in evaluation with us for kidney txp due to BMI. Needs to be < 40, but ideally < 35. Reviewed that I called and LM for patient on 11/15/22 and he has not returned call. Faxed immunization record per request to: [phone]. documented in this encounter Plan of Treatment Upcoming Encounters Date Type Department Care Team (Late st Contact Info) Description 07/15/2024 9:00 AM [facility] Hospital Encounter [facility] Interventional Radiology [address] [place] [phone] Herve Carrillo MD 3130 [facility] [address] Surgery [place] [phone] documented as of this encounter Visit Diagnoses Not on filedocumented in this encounter Additional Health Concerns Assessment Noted Time PHQ-9 Depression Total Score: 0 12/06/19 18 3:00 PM EDT documented as of this encounter Care Teams Dice Dealer Relationship Specialty Start Date End Date Edgar Fournier MD [place] [address] PCP - General 12/22/21 Maile Valles, RN Txp Post Coordinator Transplant Hepatology 11/07/17 Jack Ordoñez MD [facility] [place] [address] Consulting Physician Transplant Hepatology 01/05/18 Estephania Sharif, DarrianD Pharmacist Pharmacist 11/11/19 documented as of this encounter
--- OUTSIDE RECORDS SUMMARY | 2024-07-12 12:26 | XMS_ITS | Encounter Summary ---
Author Organization [facility] Address [address] [place] [address] Care Team Providers Care Cafeteria Helper Name Role Phone Maile Valles RN Unavailable Unavail able Jack Ordoñez MD Unavailable [phone] Estephania Sharif PharmD Unavailable Christine Edgar Tolentino MD Primary Care Provider [phone] Source Comments This information has been disclosed [...] release of HIV test results or diagnoses. [id number] Health Encounter Details Date Type Department Care Team (Late st Contact Info) Description 11/30/2022 Telephone [facility] Kidney Transplant at [address] [place] [address] Krystal Julio MA Social History Tobacco Use Types Packs/Day [...] encounter Miscellaneous Notes * Telephone Encounter - Krystal Julio MA - 11/30/2022 11:42 AM EDT New dialysis coordinator phoned with questions about patient-will forward to RN documented in this encounter Plan of Treatment Upcoming Encounters Date Type Department Care Team (Late st Contact Info) Description 07/15/2024 9:00 AM EST Hospital Encounter [facility] Interventional Radiology [address] [place] [phone] Herve Carrillo MD [address] [facility] [address] Surgery [place] [phone] documented as of this encounter Visit Diagnoses Not on filedocumented in this encounter Additional Health Concerns Assessment Noted Time PHQ-9 Depression Total Score: 0 12/06/19 18 3:00 PM EDT documented as of this encounter Care Teams Cafeteria Helper Relationship Specialty Start Date End Date Edgar Fournier MD [address] [place] [address] [place] [address] PCP - General 12/22/21 Maile Valles, RN Txp Post Coordinator Transplant Hepatology 11/07/17 Jack Ordoñez MD [address] [place] [phone] Consulting Physician Transplant Hepatology 01/05/18 Estephania Sharif, DarrianD Pharmacist Pharmacist 11/11/19 documented as of this encounter
--- OUTSIDE RECORDS SUMMARY | 2024-07-12 12:26 | XMS_ITS | Encounter Summary ---
Author Organization [facility] Address [address] [place] [address] Care Team Providers Care Indigo Mixer Name Role Phone Maile Valles RN Unavailable Unavail able Jack Ordoñez MD Unavailable [phone] Estephania Sharif PharmD Unavailable Christine Edgar Tolentino MD Primary Care Provider [phone] Source Comments This information has been disclosed [...] release of HIV test results or diagnoses. [id number] Health Encounter Details Date Type Department Care Team (Late st Contact Info) Description 06/28/2023 Orders Only [facility] Liver Transplant at [facility] [address] [facility] [address] [place] [address] Jack Ordoñez MD [address] [place] [phone] Liver replaced by transplant ([facility]) (Primary Dx); Encounter for therapeutic drug monitoring Social History [...] st Contact Info) Description 07/15/2024 9:00 AM [facility] Hospital Encounter [facility] Interventional Radiology [address] [place] [phone] Herve Carrillo MD [address] [facility] Ed [address] [place] [address] Scheduled Orders Name Type Priority Associated Diagnoses Orde r Schedule CBC Lab Routine Liver replaced by transplant ([facility]) monthly for 12 Occurrences starting 06/29/2023 until 06/27/2024, 1 completed Differential Lab Routine Liver replaced by transplant ([facility]) monthly for 12 Occurrences starting 06/29/2023 until 06/27/2024, 1 completed Hepatic Function Panel Lab Routine Liver replaced by transplant ([facility]) monthly for 12 Occurrences starting 06/29/2023 until 06/27/2024, 1 completed Renal Function Panel w/EGFR Lab Routine Liver replaced by transplant ([facility]) monthly for 12 Occurrences starting 06/29/2023 until 06/27/2024, 1 completed Cyclosporine level Lab Routine Liver replaced by transplant ([facility]) Encounter for therapeutic drug monitoring monthly for 12 Occurrences starting 06/29/2023 until 06/27/2024, 1 completed documented as of this encounter Results * (ABNORMAL) Cyclosporine level (10/23/2023 10:11 AM EDT) Cyclosporine, LC/MS 38.1(L) 100.0 - 350.0 ng/mL 10/23/2023 2:22 PM EDT [facility] Comment:Performed via liquid chromatography tandem mass spectrometry. Detection limit: 20 ng/mL. Individual target concentrations may vary due to target organ and time after transplant. This test has been developed and its performance characteristics determined by [facility] which is certified under [...] AM EDT 10/23/2023 10:21 AM EDT Narrative [facility] - 10/23/2023 2:22 PM EDT Standing orders to be drawn monthly ??Labs should be completed prior to taking morning medications. ?? Please fax results to Liver transplant at [phone] Call for critical results at [phone] Jack Ordoñez MD LAB BLOOD ORDERABLES Final Re sult [facility] [address] * (ABNORMAL) Renal Function Panel w/EGFR (10/23/2023 10:11 AM EDT) Sodium 140 133 - 146 mmol/L 10/23/2023 11:21 AM EDT [facility] Potassium 5.8(H) 3.5 - 5.3 mmol/L 10/23/2023 11:21 AM EDT [facility] Chloride 101 98 - 110 mmol/L 10/23/2023 11:21 AM EDT [facility] CO2 26 21 - 33 mmol/L 10/23/2023 11:21 AM EDT [facility] Anion Gap 13 3 - 16 mmol/L 10/23/2023 11:21 AM EDT [facility] BUN 64(H) 7 - 25 mg/dL 10/23/2023 11:21 AM EDT [facility] Creatinine 9.39(H) 0.60 - 1.30 mg/dL 10/23/2023 11:21 AM EDT [facility] Glucose 145(H) 70 - 100 mg/dL 10/23/2023 11:21 AM EDT [facility] Calcium 9.4 8.6 - 10.3 mg/dL 10/23/2023 11:21 AM EDT [facility] Phosphorus 6.7(H) 2.1 - 4.7 mg/dL 10/23/2023 11:21 AM EDT [facility] Albumin 4.2 3.5 - 5.7 g/dL 10/23/2023 11:21 AM EDT [facility] Osmolality, Calculated 311(H) 278 - 305 mOsm/kg 10/23/2023 11:21 AM EDT [facility] EGFR 6 10/23/2023 11:21 AM EDT [facility] Comment:As of 2021, the estimated [...] Simone C, Delbert M, Greg DC, Felice ASHLEY, Kulwinder JAY, Dorcas LA, et al. A Unifying Approach for GFR Estimation: Recommendations of the NKF-ASN Task Force on Reassessing the inclusion of Race in Diagnosing Kidney Disease. Am J Kidney Dis. 2020. Plasma 10/23/2023 10:1 1 AM EDT 10/23/2023 10:33 AM EDT Narrative [facility] - 10/23/2023 11:21 AM EDT Standing orders to be drawn monthly ??Labs should be completed prior to taking morning medications. ?? Please fax results to Liver transplant at [phone] Call for critical results at [phone] Jack Ordoñez MD LAB BLOOD ORDERABLES Final Re sult [facility] [address] * Hepatic Function Panel (10/23/2023 10:11 AM EDT) Total Bilirubin 0.4 0.0 - 1.5 mg/dL 10/23/2023 11:21 AM EDT [facility] Bilirubin, Direct 0.09 0.00 - 0.40 mg/dL 10/23/2023 11:21 AM EDT [facility] AST 13 13 - 39 U/L 10/23/2023 11:21 AM EDT [facility] ALT 9 7 - 52 U/L 10/23/2023 11:21 AM EDT [facility] Alkaline Phosphatase 118 36 - 125 U/L 10/23/2023 11:21 AM EDT [facility] Total Protein 6.8 6.4 - 8.9 g/dL 10/23/2023 11:21 AM EDT [facility] Albumin 4.2 3.5 - 5.7 g/dL 10/23/2023 11:21 AM EDT [facility] Bilirubin, Indirect 0.31 0.00 - 1.10 mg/dL 10/23/2023 11:21 AM EDT [facility] Plasma 10/23/2023 10:1 1 AM EDT 10/23/2023 10:33 AM EDT Narrative [facility] - 10/23/2023 11:21 AM EDT Standing orders to be drawn monthly ??Labs should be completed prior to taking morning medications. ?? Please fax results to Liver transplant at [phone] Call for critical results at [phone] Jack Ordoñez MD LAB BLOOD ORDERABLES Final Re sult [facility] [address] * (ABNORMAL) Differential (10/23/2023 10:11 AM EDT) Myelocytes Relative 2.9(H) 0.0 - 0.0 % 10/23/2023 1:14 PM EDT [facility] Neutrophils Relative 67.3 40.0 - 80.0 % 10/23/2023 1:14 PM EDT [facility] Lymphocytes Relative 23.1 15.0 - 45.0 % 10/23/2023 1:14 PM EDT [facility] Monocytes Relative 2.9 0.0 - 12.0 % 10/23/2023 1:14 PM EDT [facility] Eosinophils Relative 3.8 0.0 - 8.0 % 10/23/2023 1:14 PM EDT [facility] Basophils Relative 0.0 0.0 - 1.0 % 10/23/2023 1:14 PM EDT [facility] Neutrophils Absolute 2,557 1,500 - 7,800 /uL 10/23/2023 1:14 PM EDT [facility] Myelocytes Absolute 110(H) 0 - 0 /uL 10/23/2023 1:14 PM EDT [facility] Lymphocytes Absolute 878 850 - 3,900 /uL 10/23/2023 1:14 PM EDT [facility] Monocytes Absolute 110(L) 200 - 950 /uL 10/23/2023 1:14 PM EDT [facility] Eosinophils Absolute 144 15 - 500 /uL 10/23/2023 1:14 PM EDT [facility] Basophils Absolute 0 0 - 200 /uL 10/23/2023 1:14 PM EDT [facility] Macrocytosis Present 10/23/2023 1:14 PM EDT [facility] Polychromasia Present 10/23/2023 1:14 PM EDT [facility] Stomatocytes Present 10/23/2023 1:14 PM EDT [facility] PLT Morphology Platelet morphology appears normal 10/23/2023 1:14 PM EDT [facility] Whole Blood 10/23/2023 10:1 1 AM EDT 10/23/2023 10:20 AM EDT Narrative [facility] - 10/23/2023 1:14 PM EDT Standing orders to be drawn monthly ??Labs should be completed prior to taking morning medications. ?? Please fax results to Liver transplant at [phone] Call for critical results at [phone] us Jack Ordoñez MD LAB BLOOD ORDERABLES Final Re sult [facility] [address] [place] [id number], [facility] * (ABNORMAL) CBC (10/23/2023 10:11 AM EDT) WBC 3.8 3.8 - 10.8 10E3/uL 10/23/2023 10:31 AM EDT [facility] RBC 3.55(L) 4.20 - 5.80 10E6/uL 10/23/2023 10:31 AM EDT [facility] Hemoglobin 11.6(L) 13.2 - 17.1 g/dL 10/23/2023 10:31 AM EDT [facility] Hematocrit 35.4(L) 38.5 - 50.0 % 10/23/2023 10:31 AM EDT [facility] MCV 99.5 80.0 - 100.0 fL 10/23/2023 10:31 AM EDT [facility] MCH 32.8 27.0 - 33.0 pg 10/23/2023 10:31 AM EDT [facility] MCHC 32.9 32.0 - 36.0 g/dL 10/23/2023 10:31 AM EDT [facility] RDW 15.6(H) 11.0 - 15.0 % 10/23/2023 10:31 AM EDT [facility] Platelets 219 140 - 400 10E3/uL 10/23/2023 10:31 AM EDT [facility] MPV 7.7 7.5 - 11.5 fL 10/23/2023 10:31 AM EDT [facility] Whole Blood 10/23/2023 10:1 1 AM EDT 10/23/2023 10:20 AM EDT Narrative [facility] - 10/23/2023 10:31 AM EDT Standing orders to be drawn monthly ??Labs should be completed prior to taking morning medications. ?? Please fax results to Liver transplant at [phone] Call for critical results at [phone] us Jack Ordoñez MD LAB BLOOD ORDERABLES Final Re sult [facility] [address] documented in this encounter Visit Diagnoses Diagnosis Liver replaced by transplant (CMS-HCC)- Primary Liver replaced by transplant Encounter for therapeutic drug monitoring Liver replaced by transplant (CMS-HCC) Liver replaced by transplant Encounter for therapeutic drug monitoring documented in this encounter Additional Health Concerns Assessment Noted Time PHQ-9 Depression Total Score: 0 12/06/19 18 3:00 PM EDT documented as of this encounter Care Teams Indigo Mixer Relationship Specialty Start Date End Date Edgar Fournier MD [address] [place] [address] [place] [address] PCP - General 12/22/21 Maile Valles, RN Txp Post Coordinator Transplant Hepatology 11/07/17 Jack Ordoñez MD [address] [place] [phone] Consulting Physician Transplant Hepatology 01/05/18 Estephania Sharif, PharmD Pharmacist Pharmacist 11/11/19 documented as of this encounter
--- OUTSIDE RECORDS SUMMARY | 2024-07-12 12:26 | XMS_ITS | Encounter Summary ---
Author Organization [facility] Address [address] [place] [address] Care Team Providers Care Infrastructure Developer Name Role Phone Maile Valles RN Unavailable Unavail able Jack Ordoñez MD Unavailable [phone] Estephania Sharif PharmD Unavailable Christine Edgar Tolentino MD Primary Care Provider [phone] Source Comments This information has been disclosed [...] release of HIV test results or diagnoses. [id number] Reason for Visit * Reason Comments Return Call Encounter Details Date Type Department Care Team (Late st Contact Info) Description 02/10/2023 Telephone [facility] Advanced Heart Failure at [facility] [address] [facility] [address] [place] [address] Humza Riley CNP Return Call Social History Tobacco Use Types Packs/Day [...] encounter Miscellaneous Notes * Telephone Encounter - Carlos Meyer MA - 02/10/2023 4:02 PM EDT Kati called after her call with Saida Box disconnected. She states that the patient is alreadyon Lokelma which was misunderstood during the phone call. * Telephone Encounter - Saida Box - 02/10/2023 3:59 PM EDT Kati from [facility] is returning a call to [facility] Kati states Lisinopril was stopped on 11/28 due to a potassium of 6.4 Kati also states Spironolactone was stopped in November as well due to high potassium Kati states Dr. Sky advised the pt he could restart Lisinopril but only if he starts Lokelma as well Phone call disconnected documented in this encounter Plan of Treatment Upcoming Encounters Date Type Department Care Team (Late st Contact Info) Description 07/15/2024 9:00 AM EST Hospital Encounter [facility] Interventional Radiology [address] [place] [phone] Herve Carrillo MD [address] Surgery [place] [phone] documented as of this encounter Visit Diagnoses Not on filedocumented in this encounter Additional Health Concerns Infection Onset Date Last Indicated Resolved Time Rule Out C. difficile 11/05/2023 11/06/20232023 10:01 PM EDT Assessment Noted Time PHQ-9 Depression Total Score: 0 12/06/19 18 3:00 PM EDT documented as of this encounter Care Teams Infrastructure Developer Relationship Specialty Start Date End Date Edgar Fournier MD [address] [place] [address] [place] [address] PCP - General 12/22/21 Maile Valles, JANA Txp Post Coordinator Transplant Hepatology 11/07/17 Jack Ordoñez MD [address] [place] [phone] Consulting Physician Transplant Hepatology 01/05/18 Estephania Sharif, PharmD Pharmacist Pharmacist 11/11/19 documented as of this encounter
--- OUTSIDE RECORDS SUMMARY | 2024-07-12 12:26 | XMS_ITS | Encounter Summary ---
Author Organization [facility] Address [address] [place] [address] Care Team Providers Care Corporate Planner Name Role Phone Maile Valles RN Unavailable Unavail able Jack Ordoñez MD Unavailable [phone] Estephania Sharif PharmD Unavailable Christine Edgar Tolentino MD Primary Care Provider [phone] Source Comments This information has been disclosed [...] release of HIV test results or diagnoses. [id number] Reason for Referral * Physician/ANUSHA (Routine) - Closed Specialty Diagnoses / Procedures Referred By Contac t Referred To Contact [facility] Bariatric Surgery Diagnoses Liver transplanted ([facility]-H[facility]) BMI 40.0-44.9, adult (CMS-HCC) [facility] Liver Transplant at [place] [address] [facility] [address] [place] [address] Phone: tel: fax: Referral ID Status Reason Start Date Expiration Date Visits Re quested Visits Authorized [id number] Closed 05/08/2023 11/04/2023 1 1 Scheduling Instructions [facility] provides a comprehensive approach to weight loss with a multi-disciplinary team of experts specializing in treating the disease of obesity including behavioral health, nutrition, physical therapy and fitness. Experienced patient advocates guide patients and provide support. Surgical Weight Loss ? Multidisciplinary Bariatric Surgery BMI 35 or greater and age 18 or older Procedures: Sleeve Gastrectomy, Gastric Bypass (laparoscopic), Adjustable Band, and Surgical Revisions Insurance and self-pay ? [facility] and [facility] hCentive/nothingGrinder Surgical Weight Loss - TRIMS (Transplant Related Interdisciplinary Metabolic Surgery) Transplant includes Heart, Liver and Kidney Procedures: Sleeve Gastrectomy Insurance and self-pay - [facility] hCentive/en/treatments/trims Medical Weight Loss ? Physician supervised meal replacement. BMI 27 or greater Between ages 18-64 Minimal participation 12 consecutive weeks Self-pay - [facility] hCentive/nothingGrinder Phone #: [phone] Fax #: [phone] Reason for Visit * Reason Comments Advice Only Encounter Details Date Type Department Care Team (Late st Contact Info) Description 05/08/[address] [facility] Liver Transplant at [address] [address] Anne Whitt MA Advice Only Social [...] Progress Notes * Maile Valles RN - 05/08/2023 2:51 PM EDT Previous referral placed March 2022. Placed new referral. Department phone: [phone] Txp MA to update patient. documented in this encounter Miscellaneous Notes * Telephone Encounter - Estrella Goodrich MA - 05/09/2023 2:39 PM EDT Called pt back to provide number to call office * Telephone Encounter - Anne Whitt MA - 05/08/2023 2:48 PM EDT Pt called to request referral to Weight Loss center for gastric sleeve surgery. documented in this encounter Plan of Treatment Upcoming Encounters Date Type Department Care Team (Late st Contact Info) Description 07/15/2024 9:00 AM EST Hospital Encounter [facility] Interventional Radiology [address] [place] [phone] Herve Carrillo MD 7300 [facility] 3200 [place] [phone] Scheduled Referrals Name Type Priority Associated Diagnoses Orde r Schedule Bariatric Surgery / Weight Loss Outpatient Referral Routine Liver transplanted (CMS-HCC) BMI 40.0-44.9, adult (CMS-HCC) Ordered: 05/08/2023 documented as of this encounter Visit Diagnoses Diagnosis Liver transplanted (CMS-HCC)- Primary Liver replaced by transplant BMI 40.0-44.9, adult (CMS-HCC) documented in this encounter Additional Health Concerns Assessment Noted Time PHQ-9 Depression Total Score: 0 12/06/19 18 3:00 PM EDT documented as of this encounter Care Teams Corporate Planner Relationship Specialty Start Date End Date Edgar Fournier MD [address] [place] [address] [place] [address] PCP - General 12/22/21 Maile Valles, RN Txp Post Coordinator Transplant Hepatology 11/07/17 Jack Ordoñez MD [address] [place] [address] Consulting Physician Transplant Hepatology 01/05/18 Estephania Sharif, DarrianD Pharmacist Pharmacist 11/11/19 documented as of this encounter
--- OUTSIDE RECORDS SUMMARY | 2024-07-12 12:26 | XMS_ITS | Encounter Summary ---
Author Organization [facility] Address [facility] [place] [address] Care Team Providers Care Shear Operator Automatic Name Role Phone Maile Valles RN Unavailable Unavail able Jack Ordoñez MD Unavailable [phone] Estephania Sharif PharmD Unavailable Christine Edgar Tolentino MD Primary Care Provider [phone] Source Comments This information has been disclosed [...] release of HIV test results or diagnoses. [id number] Health Encounter Details Date Type Department Care Team (Late st Contact Info) Description 05/11/2023 Telephone [facility] Weight Loss Center at [facility] Medical [facility] [address] [place] [address] Christa Allison Social History Tobacco Use Types Packs/Day Years [...] Miscellaneous Notes * Telephone Encounter - Valeria Bhargav - 05/11/2023 3:41 PM EDT Called pt to schedule IA patient didn't want to do 6 months of visit and stated that he wanted all of his appt via telehealth or video I advised the patient that not all of his appointment could be this way due to insurance he stated he would call back documented in this encounter Plan of Treatment Upcoming Encounters Date Type Department Care Team (Late st Contact Info) Description 07/15/2024 9:00 AM EST Hospital Encounter [facility] Interventional Radiology [address] [place] [address] Herve Carrillo MD 3130 [facility] 3200 Surgery [place] [address] documented as of this encounter Visit Diagnoses Not on filedocumented in this encounter Additional Health Concerns Assessment Noted Time PHQ-9 Depression Total Score: 0 12/06/19 18 3:00 PM EDT documented as of this encounter Care Teams Shear Operator Automatic Relationship Specialty Start Date End Date Edgar Fournier MD [address] [place] [address] [place] [address] PCP - General 12/22/21 Maile Valles, JANA Txp Post Coordinator Transplant Hepatology 11/07/17 Jack Ordoñez MD [address] [place] [phone] Consulting Physician Transplant Hepatology 01/05/18 Estephania Sharif, PharmD Pharmacist Pharmacist 11/11/19 documented as of this encounter
--- OUTSIDE RECORDS SUMMARY | 2024-07-12 12:26 | XMS_ITS | Encounter Summary ---
Author Organization [facility] Address [facility] [place] [address] Care Team Providers Care Model And Mold Maker Name Role Phone Maile Valles RN Unavailable Unavail able Jack Ordoñez MD Unavailable [phone] Estephania Sharif PharmD Unavailable Christine Edgar Tolentino MD Primary Care Provider [phone] Source Comments This information has been disclosed [...] release of HIV test results or diagnoses. [id number] Health Encounter Details Date Type Department Care Team (Late st Contact Info) Description 05/11/2023 Telephone [facility] Weight Loss Center at [facility] Medical [facility] [address] [place] [address] Judi Yeboah Social History Tobacco Use Types Packs/Day Years [...] Miscellaneous Notes * Telephone Encounter - Judi Yeboah - 05/11/2023 10:09 AM EDT Wants to restart swl documented in this encounter Plan of Treatment Upcoming Encounters Date Type Department Care Team (Late st Contact Info) Description 07/15/2024 9:00 AM EST Hospital Encounter [facility] Interventional Radiology [address] [place] [phone] Herve Carrillo MD 3130 [facility] 3200 [place] [phone] documented as of this encounter Visit Diagnoses Not on filedocumented in this encounter Additional Health Concerns Assessment Noted Time PHQ-9 Depression Total Score: 0 12/06/19 18 3:00 PM EDT documented as of this encounter Care Teams Model And Mold Maker Relationship Specialty Start Date End Date Edgar Fournier MD [address] [place] [address] [place] [address] PCP - General 12/22/21 Maile Valles, JANA Txp Post Coordinator Transplant Hepatology 11/07/17 Jack Ordoñez MD [address] [place] [phone] Consulting Physician Transplant Hepatology 01/05/18 Estephania Sharif, DarrianD Pharmacist Pharmacist 11/11/19 documented as of this encounter
--- OUTSIDE RECORDS SUMMARY | 2024-07-12 12:26 | XMS_ITS | Encounter Summary ---
Author Organization [facility] Address [address] [place] [address] Care Team Providers Care Business Advisor Name Role Phone Maile Valles RN Unavailable Unavail able Jack Ordoñez MD Unavailable [phone] Estephania Sharif PharmD Unavailable Christine Edgar Tolentino MD Primary Care Provider [phone] Source Comments This information has been disclosed [...] release of HIV test results or diagnoses. [id number] Health Encounter Details Date Type Department Care Team (Late st Contact Info) Description 07/26/2023 Telephone [facility] Liver Transplant at [address] [place] [address] Lynnette Muhammad MA Social History Tobacco [...] Telephone Encounter - Lynnette Muhammad MA - 07/26/2023 9:20 AM EST Pt called worried about his cyclosporin level being 189. States it has never been that high before and he would like to know if he needs to be concerned. documented in this encounter Plan of Treatment Upcoming Encounters Date Type Department Care Team (Late st Contact Info) Description 07/15/2024 9:00 AM EST Hospital Encounter [facility] Interventional Radiology [address] [place] [phone] Herve Carrillo MD [address] [facility] 3200 [place] [phone] documented as of this encounter Visit Diagnoses Not on filedocumented in this encounter Additional Health Concerns Assessment Noted Time PHQ-9 Depression Total Score: 0 12/06/19 18 3:00 PM EDT documented as of this encounter Care Teams Business Advisor Relationship Specialty Start Date End Date Edgar Fournier MD [address] [place] [address] [place] [address] PCP - General 12/22/21 Maile Valles, JANA Txp Post Coordinator Transplant Hepatology 11/07/17 Jack Ordoñez MD [address] [place] [phone] Consulting Physician Transplant Hepatology 01/05/18 Estephania Sharif, DarrianD Pharmacist Pharmacist 11/11/19 documented as of this encounter
--- OUTSIDE RECORDS SUMMARY | 2024-07-12 12:26 | XMS_ITS | Encounter Summary ---
Author Organization [facility] Address [address] [place] [address] Care Team Providers Care Nuclear Fuel Enrichment Technician Name Role Phone Maile Valles RN Unavailable Unavail able Jack Ordoñez MD Unavailable [phone] Estephania Sharif PharmD Unavailable Christine Edgar Tolentino MD Primary Care Provider [phone] Source Comments This information has been disclosed [...] release of HIV test results or diagnoses. [id number] Reason for Visit * Reason Comments Medication Refill Encounter Details Date Type Department Care Team (Late st Contact Info) Description 04/28/2023 Refill [facility] Liver Transplant at [facility] 3130 [facility] [address] [place] [address] Jack Ordoñez MD [address] [place] [address] Social History Tobacco Use Types [...] 9:00 AM EST Hospital Encounter [facility] Interventional Radiology [address] [place] [phone] Herve Carrillo MD 3130 [facility] 3200 [place] [address] documented as of this encounter Visit Diagnoses Not on filedocumented in this encounter Additional Health Concerns Assessment Noted Time PHQ-9 Depression Total Score: 0 12/06/19 18 3:00 PM EDT documented as of this encounter Care Teams Nuclear Fuel Enrichment Technician Relationship Specialty Start Date End Date Edgar Fournier MD [address] [place] [address] [place] [address] PCP - General 12/22/21 Maile Valles, JANA Txp Post Coordinator Transplant Hepatology 11/07/17 Jack Ordoñez MD [address] [place] [phone] Consulting Physician Transplant Hepatology 01/05/18 Estephania Sharif, PharmD Pharmacist Pharmacist 11/11/19 documented as of this encounter
--- OUTSIDE RECORDS SUMMARY | 2024-07-12 12:26 | XMS_ITS | Encounter Summary ---
Author Organization [facility] Address [facility] [place] [address] Care Team Providers Care Latin American Studies Director Name Role Phone Maile Valles RN Unavailable Unavail able Jack Ordoñez MD Unavailable [phone] Estephania Sharif PharmD Unavailable Christine Edgar Tolentino MD Primary Care Provider [phone] Source Comments This information has been disclosed [...] release of HIV test results or diagnoses. [id number] Health Encounter Details Date Type Department Care Team (Late st Contact Info) Description 05/11/2023 Chart Note [facility] Weight Loss Center at [facility] Medical [facility] [address] [place] [address] Christa Allison Social History Tobacco [...] 9:00 AM EST Hospital Encounter [facility] Interventional Radiology [address] [place] [phone] Herve Carrillo MD 3130 [facility] 3200 [place] [phone] documented as of this encounter Visit Diagnoses Not on filedocumented in this encounter Additional Health Concerns Assessment Noted Time PHQ-9 Depression Total Score: 0 12/06/19 18 3:00 PM EDT documented as of this encounter Care Teams Latin American Studies Director Relationship Specialty Start Date End Date Edgar Fournier MD [address] [place] [address] [place] [address] PCP - General 12/22/21 Maile Valles, JANA Txp Post Coordinator Transplant Hepatology 11/07/17 Jack Ordoñez MD [address] [place] [phone] Consulting Physician Transplant Hepatology 01/05/18 Estephania Sharif, DarrianD Pharmacist Pharmacist 11/11/19 documented as of this encounter
--- OUTSIDE RECORDS SUMMARY | 2024-07-12 12:26 | XMS_ITS | Encounter Summary ---
Author Organization [facility] Address [address] [place] [address] Care Team Providers Care Medical Front Desk Coordinator Name Role Phone Maile Valles RN Unavailable Unavail able Jack Ordoñez MD Unavailable [phone] Estephania Sharif PharmD Unavailable Christine Edgar Tolentino MD Primary Care Provider [phone] Source Comments This information has been disclosed [...] release of HIV test results or diagnoses. [id number] Reason for Visit * Reason Comments Medication Refill Encounter Details Date Type Department Care Team (Late st Contact Info) Description 07/25/2023 Refill [facility] Liver Transplant at [facility] 3130 [facility] [address] [place] [address] Jack Ordoñez MD [address] [place] [address] Social History Tobacco Use Types [...] [facility] Interventional Radiology [address] [place] [phone] Herve Carrillo MD 3130 [facility] 3200 Surgery [place] [address] documented as of this encounter Visit Diagnoses Not on filedocumented in this encounter Additional Health Concerns Assessment Noted Time PHQ-9 Depression Total Score: 0 12/06/19 18 3:00 PM EDT documented as of this encounter Care Teams Medical Front Desk Coordinator Relationship Specialty Start Date End Date Edgar Fournier MD [address] [place] [address] [place] [address] PCP - General 12/22/21 Maile Valles, JANA Txp Post Coordinator Transplant Hepatology 11/07/17 Jack Ordoñez MD [address] [place] [phone] Consulting Physician Transplant Hepatology 01/05/18 Estephania Sharif, PharmD Pharmacist Pharmacist 11/11/19 documented as of this encounter
--- OUTSIDE RECORDS SUMMARY | 2024-07-12 12:26 | XMS_ITS | Encounter Summary ---
Author Organization [facility] Address [address] [place] [address] Care Team Providers Care Shuttlecock Feather Trimmer Name Role Phone Maile Valles RN Unavailable Unavail able Jack Ordoñez MD Unavailable [phone] Estephania Sharif PharmD Unavailable Christine Edgar Tolentino MD Primary Care Provider [phone] Source Comments This information has been disclosed [...] release of HIV test results or diagnoses. [id number] Health Encounter Details Date Type Department Care Team (Late st Contact Info) Description 06/28/2023 Telephone [facility] Liver Transplant at [address] [place] [address] Estrella Goodrich MA Social History [...] Telephone Encounter - Estrella Goodrich MA - 06/28/2023 4:37 PM EST Pt called to confirm lab orders can be sent to local lab as they want to get labs completed tomorrow. New orders required and sent for signature and then will be sent to lab. documented in this encounter Plan of Treatment Upcoming Encounters Date Type Department Care Team (Late st Contact Info) Description 07/15/2024 9:00 AM EST Hospital Encounter [facility] Interventional Radiology [address] [place] [phone] Herve Carrillo MD 3130 [facility] 3200 [place] [phone] documented as of this encounter Visit Diagnoses Not on filedocumented in this encounter Additional Health Concerns Assessment Noted Time PHQ-9 Depression Total Score: 0 12/06/19 18 3:00 PM EDT documented as of this encounter Care Teams Shuttlecock Feather Trimmer Relationship Specialty Start Date End Date [place] [address] PCP - General 12/22/21 Maile Valles, JANA Txp Post Coordinator Transplant Hepatology 11/07/17 Jack Ordoñez MD [address] [place] [phone] Consulting Physician Transplant Hepatology 01/05/18 Estephania Sharif, PharmD Pharmacist Pharmacist 11/11/19 documented as of this encounter
--- OUTSIDE RECORDS SUMMARY | 2024-07-12 12:26 | XMS_ITS | Encounter Summary ---
Author Organization [facility] Address [address] [place] [address] Care Team Providers Care Outdoor Illuminating Engineer Name Role Phone Maile Valles RN Unavailable Unavail able Jack Ordoñez MD Unavailable [phone] Estephania Sharif PharmD Unavailable Christine Edgar Tolentino MD Primary Care Provider [phone] Source Comments This information has been disclosed [...] release of HIV test results or diagnoses. [id number] Health Encounter Details Date Type Department Care Team (Late st Contact Info) Description 02/07/2023 Telephone [facility] Advanced [facility] Failure at [facility] [address] [facility] [address] [address] [place] [address] Humza Riley CNP Social History [...] encounter Miscellaneous Notes * Telephone Encounter - Erica Rose RN - 02/07/2023 4:19 PM EDT Med rec completed. Message sent via [employer]. * Telephone Encounter - Erica Rose RN - 02/07/2023 3:42 PM EDT ----- Message from Humza Riley CNP sent at 02/07/2023 3:35 PM EDT ----- His nephrology office should be faxing over his meds. Please perform med rec when received. Can let pt know have referred him to sleep med at . Can also send somewhere else if he prefers. Ask him who diagnosed and is treating his parathyroid issue. documented in this encounter Plan of Treatment Upcoming Encounters Date Type Department Care Team (Late st Contact Info) Description 07/15/2024 9:00 AM EST Hospital Encounter [facility] Interventional Radiology [address] [place] [address] Herve Carrillo MD [address] [facility] 3200 [place] [address] documented as of this encounter Visit Diagnoses Not on filedocumented in this encounter Additional Health Concerns Assessment Noted Time PHQ-9 Depression Total Score: 0 12/06/19 18 3:00 PM EDT documented as of this encounter Care Teams Outdoor Illuminating Engineer Relationship Specialty Start Date End Date Edgar Fournier MD [address] [place] [address] [place] [phone] PCP - General 12/22/21 Maile Valles, RN Txp Post Coordinator Transplant Hepatology 11/07/17 Jack Ordoñez MD [address] [place] [phone] Consulting Physician Transplant Hepatology 01/05/18 Estephania Sharif, DarrianD Pharmacist Pharmacist 11/11/19 documented as of this encounter
--- OUTSIDE RECORDS SUMMARY | 2024-07-12 12:26 | XMS_ITS | Encounter Summary ---
Author Organization [facility] Address [address] [place] [address] Care Team Providers Care Heel Scorer Name Role Phone Maile Valles RN Unavailable Unavail able Jack Ordoñez MD Unavailable [phone] Estephania Sharif PharmD Unavailable Christine Edgar Tolentino MD Primary Care Provider [phone] Source Comments This information has been disclosed [...] release of HIV test results or diagnoses. [id number] Reason for Visit * Reason Comments Results Encounter Details Date Type Department Care Team (Late st Contact Info) Description 07/25/2023 Telephone [facility] Liver Transplant at [address] [place] [address] Maile Valles, JANA Results Social History Tobacco Use Types Packs/Day Years [...] Progress Notes * Maile Valles RN - 07/25/2023 3:23 PM EST Lab results from 07/11/23 reviewed and are normal or without clinically significant abnormalities. Patient is on hemodialysis. Immunosuppression therapeutic per [facility] liver transplant guidelines or custom goal as documented in prior clinic visits. Will continue to monitor as per previously determined lab intervals. documented in this encounter Plan of Treatment Upcoming Encounters Date Type Department Care Team (Late st Contact Info) Description 07/15/2024 9:00 AM EST Hospital Encounter [facility] Interventional Radiology [address] [place] [phone] Herve Carrillo MD 3130 [facility] 3200 [place] [phone] documented as of this encounter Visit Diagnoses Not on filedocumented in this encounter Additional Health Concerns Assessment Noted Time PHQ-9 Depression Total Score: 0 12/06/19 18 3:00 PM EDT documented as of this encounter Care Teams Heel Scorer Relationship Specialty Start Date End Date Edgar Fournier MD [address] [place] [address] [place] [address] PCP - General 12/22/21 Maile Valles, JANA Txp Post Coordinator Transplant Hepatology 11/07/17 Jack Ordoñez MD [facility]8 [place] [address] Consulting Physician Transplant Hepatology 01/05/18 Estephania Sharif, DarrianD Pharmacist Pharmacist 11/11/19 documented as of this encounter
--- OUTSIDE RECORDS SUMMARY | 2024-07-12 12:26 | XMS_ITS | Encounter Summary ---
Author Organization [facility] Address [address] [place] [address] Care Team Providers Care Pulp Bleacher Name Role Phone Maile Valles RN Unavailable Unavail able Jack Ordoñez MD Unavailable [phone] Estephania Sharif PharmD Unavailable Christine Edgar Tolentino MD Primary Care Provider [phone] Source Comments This information has been disclosed [...] release of HIV test results or diagnoses. [id number] Reason for Visit * Reason Comments Medication Refill Encounter Details Date Type Department Care Team (Late st Contact Info) Description 04/28/2023 Refill [facility] Liver Transplant at [facility] [address] [facility] [address] [place] [address] Jack Ordoñez MD [address] [place] [address] Social History Tobacco Use Types [...] 07/15/2024 9:00 AM EST Hospital Encounter [facility] Interventional Radiology [address] [place] [phone] Herve Carrillo MD [address] [facility] [address] [facility] [place] [address] documented as of this encounter Visit Diagnoses Not on filedocumented in this encounter Additional Health Concerns Assessment Noted Time PHQ-9 Depression Total Score: 0 12/06/19 18 3:00 PM EDT documented as of this encounter Care Teams Pulp Bleacher Relationship Specialty Start Date End Date Edgar Fournier MD [address] [place] [address] [place] [address] PCP - General 12/22/21 Maile Valles, JANA Txp Post Coordinator Transplant Hepatology 11/07/17 Jack Ordoñez MD [address] [place] [phone] Consulting Physician Transplant Hepatology 01/05/18 Estephania Sharif, PharmD Pharmacist Pharmacist 11/11/19 documented as of this encounter
--- OUTSIDE RECORDS SUMMARY | 2024-07-12 12:26 | XMS_ITS | Encounter Summary ---
Author Organization [facility] Address [facility] [place] [address] Care Team Providers Care Operations Support Manager Name Role Phone Maile Valles RN Unavailable Unavail able Jack Ordoñez MD Unavailable [phone] Estephania Sharif PharmD Unavailable Christine Edgar Tolentino MD Primary Care Provider [phone] Source Comments This information has been disclosed [...] release of HIV test results or diagnoses. [id number] Health Encounter Details Date Type Department Care Team (Late st Contact Info) Description 05/11/2023 Chart Note [facility] at [facility] [address] [place] [address] Maile Can MA BMI 44.41, [facility]IM[facility], Patient advised to bring new MHF Social History Tobacco Use Types Packs/Day Years [...] of this encounter Progress Notes * Maile Can MA - 05/11/2023 12:02 PM EDT BMI 44.41, TRIMS, Patient advised to bring new MHF AG 05/11/23, pt has benefits for bariatric surgery given BMI of 44.41 with JC. DM, . BMI must be 35or greater with 1 qualifying co morbid . Just do 6 months supervised , UDS/labs, no smoking 6 months prior and no substance abuse 1 yr prior documented in this encounter Plan of Treatment Upcoming Encounters Date Type Department Care Team (Late st Contact Info) Description 07/15/2024 9:00 AM [facility] Hospital Encounter [facility] Interventional Radiology [address] [place] [phone] Herve Carrillo MD 0720 [facility] [address] [facility] [place] [phone] documented as of this encounter Visit Diagnoses Not on filedocumented in this encounter Additional Health Concerns Assessment Noted Time PHQ-9 Depression Total Score: 0 12/06/19 18 3:00 PM EDT documented as of this encounter Care Teams Operations Support Manager Relationship Specialty Start Date End Date Edgar Fournier MD [address] [place] [address] PCP - General 12/22/21 Maile Valles, RN Txp Post Coordinator Transplant Hepatology 11/07/17 Jack Ordoñez MD [address] [place] [address] Consulting Physician Transplant Hepatology 01/05/18 Estephania Sharif, PharmD Pharmacist Pharmacist 11/11/19 documented as of this encounter
--- OUTSIDE RECORDS SUMMARY | 2024-07-12 12:26 | XMS_ITS | Encounter Summary ---
Author Organization [facility] Address [address] [place] [address] Care Team Providers Care Business Development Assistant Name Role Phone Maile Valles RN Unavailable Unavail able Jack Ordoñez MD Unavailable [phone] Estephania Sharif PharmD Unavailable Christine Edgar Tolentino MD Primary Care Provider [phone] Source Comments This information has been disclosed [...] release of HIV test results or diagnoses. [id number] Health Encounter Details Date Type Department Care Team (Late st Contact Info) Description 07/17/2023 Chart Note [facility] Liver Transplant at [place] [id number] [facility] [address] [place] [address] Estrella Goodrich MA Social History [...] 07/15/2024 9:00 AM EST Hospital Encounter [facility] Interventional Radiology [address] [place] [phone] Herve Carrillo MD [address] [facility] [address] [facility] [place] [address] documented as of this encounter Procedures Procedure Name Priority Date/Time Associated Diagnosis Comments HEPATIC FUNCTION PANEL Routine 07/11/2023 12:42 PM EST CYCLOSPORINE LEVEL Routine 07/11/2023 12 :42 PM EST CBC AND DIFFERENTIAL Routine 07/11/2023 12:42 PM EST RENAL FUNCTION PANEL W/O EGFR Routine 07/11/2023 12:42 PM EST documented in this encounter Results * Cyclosporine level (07/11/2023 12:42 PM EST) Cyclosporine, Blood 189 Whole Blood us Historical Provider LAB BLOOD ORDERABLES Yoselin l Result * (ABNORMAL) Renal Function Panel w/o EGFR (07/11/2023 12:42 PM EST) BUN/Creatinine Ratio 6.6 Glucose 139 mg/dL BUN 120(A) 4 - 21 mg/dL CO2 20 13 - 22 mmol/L Creatinine 18.3(A) 0.6 - 1.3 mg/dL Potassium 5.5(A) 3.4 - 5.3 mmol/L Sodium 140 137 - 147 mmol/L Chloride 102 99 - 108 mmol/L Phosphorus 10.1(A) 2.5 - 4.9 mg/dL Calcium 8.7 8.7 - 10.7 mg/dL EGFR 3 mg/dL Albumin 3.5 3.5 - 5.0 g/dL Blood Historical Provider MD LAB BLOOD ORDERABLES Yoselin l Result * (ABNORMAL) CBC and differential (07/11/2023 12:42 PM EST) Hemoglobin 11.6(A) 13.5 - 17.5 g/dL Hematocrit 36.4(A) 41 - 53 % RDW 14.1 11.5 - 14.5 % Lymphocytes Absolute 1.67 /??L Monocytes Absolute 0.42 /??L Eosinophils Absolute 0.13 /??L Basophils Absolute 0.01 /??L Neutrophils Relative 62 46 - 78 % Lymphocytes Relative 27.8 18 - 52 % Monocytes Relative 7 3 - 10 % Eosinophils Relative 2.2 0 - 6 % Basophils Relative 0.2 0 - 3 % Neutrophils Absolute 3.67 /??L MCH 32.8 26.0 - 34.0 pg MCHC 31.9 30 - 37 g/dL MCV 102.8 82.0 - 108.0 fL Platelets 158 K/??L RBC 3.54(A) 4.50 - 5.90 10^6/??L WBC 6 10^3/mL Blood Historical Provider LAB BLOOD ORDERABLES Yoselin l Result * Hepatic Function Panel (07/11/2023 12:42 PM EST) Bilirubin, Direct 0.1 Alkaline Phosphatase 140 U/L ALT 11 U/L AST 4 U/L Total Bilirubin 0.7 0.1 - 1.4 mg/dL Total Protein 7.1 6.4 - 8.2 g/dL Plasma us Historical Provider LAB BLOOD ORDERABLES Yoselin l Result documented in this encounter Visit Diagnoses Not on filedocumented in this encounter Additional Health Concerns Assessment Noted Time PHQ-9 Depression Total Score: 0 12/06/19 18 3:00 PM EDT documented as of this encounter Care Teams Business Development Assistant Relationship Specialty Start Date End Date Edgar Fournier MD [address] [place] [address] [place] [address] PCP - General 12/22/21 Maile Valles, RN Txp Post Coordinator Transplant Hepatology 11/07/17 Jack Ordoñez MD [address] [place] [phone] Consulting Physician Transplant Hepatology 01/05/18 Estephania Sharif, DarrianD Pharmacist Pharmacist 11/11/19 documented as of this encounter
--- OUTSIDE RECORDS SUMMARY | 2024-07-12 12:27 | XMS_ITS | Encounter Summary ---
Author Organization [facility] Address [address] [place] [address] Care Team Providers Care Clerk Telegraph Service Name Role Phone Maile Valles RN Unavailable Unavail able Jack Ordoñez MD Unavailable [phone] Estephania Sharif PharmD Unavailable Christine Edgar Tolentino MD Primary Care Provider [phone] Source Comments This information has been disclosed [...] release of HIV test results or diagnoses. [id number] Reason for Visit * Reason Comments Medical Management Encounter Details Date Type Department Care Team (Late st Contact Info) Description 09/12/[address] [facility] Advanced Heart Failure at [place] [facility] [address] [facility] [address] [place] [address] Humza Riley CNP Medical Management Social History Tobacco Use Types Packs/Day Years [...] encounter Miscellaneous Notes * Telephone Encounter - Edilberto Holly - 09/12/2022 10:07 AM EST WOP calling stating pt is in hosp [facility] Needs Md to call the MD that is working with him there. Please call DR. Kaur documented in this encounter Plan of Treatment Upcoming Encounters Date Type Department Care Team (Late st Contact Info) Description 07/15/2024 9:00 AM EST Hospital Encounter [facility] Interventional Radiology [address] [place] [address] Herve Carrillo MD [address] [facility] [address] [facility] [place] [address] documented as of this encounter Visit Diagnoses Not on filedocumented in this encounter Additional Health Concerns Assessment Noted Time PHQ-9 Depression Total Score: 0 12/06/19 18 3:00 PM EDT documented as of this encounter Care Teams Clerk Telegraph Service Relationship Specialty Start Date End Date Edgar Fournier MD [address] [place] [address] [place] [address] PCP - General 12/22/21 Maile Valles, JANA Txp Post Coordinator Transplant Hepatology 11/07/17 Jack Ordoñez MD [address] [place] [phone] Consulting Physician Transplant Hepatology 01/05/18 Estephania Sharif, PharmD Pharmacist Pharmacist 11/11/19 documented as of this encounter
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
--- OUTSIDE RECORDS SUMMARY | 2024-07-12 12:27 | XMS_ITS | Encounter Summary ---
Author Organization [facility] Address [address] [place] [address] Care Team Providers Care Lining Caser Name Role Phone Maile Valles RN Unavailable Unavail able Jack Ordoñez MD Unavailable [phone] Estephania Sharif PharmD Unavailable Christine Edgar Tolentino MD Primary Care Provider [phone] Source Comments This information has been disclosed [...] release of HIV test results or diagnoses. [id number] Health Encounter Details Date Type Department Care Team (Late st Contact Info) Description 11/15/2022 Telephone [facility] Kidney Transplant at [address] [place] [address] Bridgett Hernandez, RN Social History [...] Telephone Encounter - Bridgett Hernandez RN - 11/15/2022 3:17 PM EDT Received message from Dr. Schulte with questions r/t kidney txp referral status. Chart reviewed and evaluation closed d/t central obesity and BMI. Current BMI is 45.19, needs to be < [address] Schulte, pt with questions/ felt like he was discouraged to get gastric sleeve. Dr. Montalvo's note from 09/21/21: Had long talk today about management of incisional hernia after txp. BMI is currently 40.4 - he thinks he is carrying a little extra water and his actual dry weight should be 118 kg. Large amount ofcentral obesity. He has been evaluated by [facility] before and was planned to undergo sleeve gastrectomy but this was put on hold secondary to prolonged hospitalization 2/2 spine infection. ?? He is not interested in bariatric surgery at this time but wants to try and loose weight on his own. He needs to loose weight for kidney transplant and I would prioritize this over hernia repair. ?? [place] goal weight loss to BMI < 35 but I think he she shows good progress and BMI is in 36 to 37range we can consider hernia repair. Will follow up on his weight loss progress. Called pt to follow-up. NA, LM asking for return call. documented in this encounter Plan of Treatment Upcoming Encounters Date Type Department Care Team (Late st Contact Info) Description 07/15/2024 9:00 AM EST Hospital Encounter [facility] Interventional Radiology [address] [place] [address] Herve Carrillo MD [address] [place] [address] [facility] [address] [place] [address] documented as of this encounter Visit Diagnoses Not on filedocumented in this encounter Additional Health Concerns Assessment Noted Time PHQ-9 Depression Total Score: 0 12/06/19 18 3:00 PM EDT documented as of this encounter Care Teams Lining Caser Relationship Specialty Start Date End Date Edgar Fournier MD [address] [place] [address] [place] [address] PCP - General 12/22/21 Maile Valles, RN Txp Post Coordinator Transplant Hepatology 11/07/17 Jack Ordoñez MD [address] [place] [address] Consulting Physician Transplant Hepatology 01/05/18 Estephania Sharif, DarrianD Pharmacist Pharmacist 11/11/19 documented as of this encounter
--- OUTSIDE RECORDS SUMMARY | 2024-07-12 12:27 | XMS_ITS | Encounter Summary ---
Author Organization [facility] Address [address] [place] [address] Care Team Providers Care Pickling Machine Operator Name Role Phone Maile Valles RN Unavailable Unavail able Jack Ordoñez MD Unavailable [phone] Estephania Sharif PharmD Unavailable Christine Edgar Tolentino MD Primary Care Provider [phone] Source Comments This information has been disclosed [...] release of HIV test results or diagnoses. [id number] Reason for Visit * Reason Comments Appointment [facility] nurse visit Encounter Details Date Type Department Care Team (Late st Contact Info) Description 08/16/2022 Telephone [facility] Advanced Heart Failure at [place] [facility] [address] [facility] [address] [place] [address] System, Provider Not In Appointment ([facility] nurse visit) Social History Tobacco Use Types Packs/Day Years [...] Telephone Encounter - Erica Rose RN - 08/16/2022 10:13 AM EST LM on patients ID VM that the cardioMEMS reading can be done at his next office visit and we do notneed to reschedule. * Telephone Encounter - Sapphire Perry - 08/16/2022 9:46 AM EST Patient woke up with stomach bug, requesting a call back to reschedule nurse visit. documented in this encounter Plan of Treatment Upcoming Encounters Date Type Department Care Team (Late st Contact Info) Description 07/15/2024 9:00 AM EST Hospital Encounter [facility] Interventional Radiology [address] [place] [address] Herve Carrillo MD [address] [place] [facility] [facility] [address] [place] [address] documented as of this encounter Visit Diagnoses Not on filedocumented in this encounter Additional Health Concerns Assessment Noted Time PHQ-9 Depression Total Score: 0 12/06/19 18 3:00 PM EDT documented as of this encounter Care Teams Pickling Machine Operator Relationship Specialty Start Date End Date Edgar Fournier MD [address] [place], [place] [address] PCP - General 12/22/21 Maile Valles, RN Txp Post Coordinator Transplant Hepatology 11/07/17 Jack Ordoñez MD [address] [place] [address] Consulting Physician Transplant Hepatology 01/05/18 Estephania Sharif, PharmD Pharmacist Pharmacist 11/11/19 documented as of this encounter
--- OUTSIDE RECORDS SUMMARY | 2024-07-12 12:27 | XMS_ITS | Encounter Summary ---
Author Organization [facility] Address [address] [place] [address] Care Team Providers Care Stud Beef Cattle Farmer Name Role Phone Maile Valles RN Unavailable Unavail able Jack Ordoñez MD Unavailable [phone] Estephania Sharif PharmD Unavailable Christine Edgar Tolentino MD Primary Care Provider [phone] Source Comments This information has been disclosed [...] release of HIV test results or diagnoses. [id number] Reason for Referral * Diagnostic Imaging (Routine) - Closed Specialty Diagnoses / Procedures Referred By Contac t Referred To Contact Diagnoses Pre-transplant evaluation for kidney transplant Hypertension, unspecified type Pulmonary HTN (CMS-HCC) Procedures Cath Case Request: Right Heart Cath and admission for optimization [place] RIGHT HEART CATH O2 SATURATION & CARDIAC OUTPUT Fermín Schulte MD Ahmad, Saad S, MD Referral ID Status Reason Start Date Expiration Date Visits Re quested Visits Authorized [id number] Closed 11/15/2022 05/14/2023 1 1 Reason for Visit * Reason Comments Medical Management Encounter Details Date Type Department Care Team (Late st Contact Info) Description 11/15/2022 Telephone [facility] Advanced Heart Failure at [facility] Office [address] [facility] [address] [place] [address] Fermín Schulte MD Medical Management Social History Tobacco Use Types [...] as of this encounter Progress Notes * Sera Camp RN - 11/15/2022 4:22 PM EDTAddended by: SERA CAMP on: 11/15/2022 04:22 PM Modules accepted: Orders documented in this encounter Miscellaneous Notes * Telephone Encounter - Sera Camp RN - 11/15/2022 4:16 PM EDT Spoke with Aiden and he is agreeable to plan. Cvl supervisor cell room notified. Will follow-up with pt for date , times and instructions. CATH INSTRUCTIONS You have been scheduled for a right Heart Catheterization with Dr. Fermín Schulte. Please check in at a.m on November 22, 2022 in the lobby on the ground floor of the [address] [address]. You will be admitted after procedure Please get labs drawn 2-3 days prior to procedure at any [facility] Lab. The orders are in the computer. Below you will find instructions for your procedure: Please take I/2 your scheduled Lantus (glargine) insulin the evening before. Hold all your oral diabetic and other injectable insulin the morning of the procedure. 1. Do not eat or drink anything 6 hours prior to your scheduled procedure. 2. You can take your medications with sips of water. 3. You will require an IV. 4. You may have labs drawn. 5. If you do not need to be admitted for further treatment after the test, you will be required to stay for 2-4 hours after the procedure. 6. Please make sure that you have someone with you on the day of the procedure, you will be unable to drive yourself home. If you have had sedation you will need to have someone spend the night with you. If you are unable to make this appointment or have any questions, please feel free to call us at . Procedure: You may be given a medication to help you relax before and during the procedure through an IV in your arm or hand. A local anesthetic is used to make the insertion area numb prior to inserting the catheter. You will be prepared for the procedure by washing the area where the catheter will be inserted. After the procedure you will be monitored for 3-4 hours. The access site will be watched and you will be checked frequently. Additional blood test, x-rays and an EKG may be performed. Someone will need to drive home from the hospital. Your procedure will be cancelled if you do not have a ride. A taxi is not suitable * Telephone Encounter - Sera Camp RN - 11/15/2022 1:43 PM EDT Attempted to reach pt regarding request for direct admit. Requested return call. This RN unsure if pt able to currently transmit cardiomems d/t the fact he was having some issue. Did request transmission if able and a recent wt. Contact information provided. Dr Schulte notified. * Telephone Encounter - Edilberto Barrera - 11/15/2022 11:21 AM EDT Pt calling stating the MD wanted him to call him if he could not get all the fluid off and he wouldset up a direct admit. He feels he needs to do this. Caller requests return call at [phone]. documented in this encounter Plan of Treatment Upcoming Encounters Date Type Department Care Team (Late st Contact Info) Description 07/15/2024 9:00 AM EST Hospital Encounter [facility] Interventional Radiology [address] [place] [address] Herve Carrillo MD [address] [facility] [address] [place] [phone] documented as of this encounter Visit Diagnoses Diagnosis Pre-transplant evaluation for kidney transplant- Primary Hypertension, unspecified type Pulmonary HTN (CMS-HCC) documented in this encounter Additional Health Concerns Assessment Noted Time PHQ-9 Depression Total Score: 0 12/06/19 18 3:00 PM EDT documented as of this encounter Care Teams Stud Beef Cattle Farmer Relationship Specialty Start Date End Date Edgar Fournier MD [address] [place] [phone] PCP - General 12/22/21 Maile Valles, RN Txp Post Coordinator Transplant Hepatology 11/07/17 Jack Ordoñez MD [address] [place] [phone] Consulting Physician Transplant Hepatology 01/05/18 Estephania Sharif, DarrianD Pharmacist Pharmacist 11/11/19 documented as of this encounter
--- OUTSIDE RECORDS SUMMARY | 2024-07-12 12:27 | XMS_ITS | Encounter Summary ---
Author Organization [facility] Address [facility] [place] [address] Care Team Providers Care Senior Consumer Insights Consultant Name Role Phone Maile Valles RN Unavailable Unavail able Jack Ordoñez MD Unavailable [phone] Estephania Sharif PharmD Unavailable Christine Edgar Tolentino MD Primary Care Provider [phone] Source Comments This information has been disclosed [...] release of HIV test results or diagnoses. [id number] Reason for Visit * Reason Comments Advice Only Encounter Details Date Type Department Care Team (Late st Contact Info) Description 09/23/2022 Telephone [facility] Interventional Radiology [facility] [place] [address] Anne López Advice Only Social History Tobacco Use Types [...] encounter Miscellaneous Notes * Telephone Encounter - Anne Rene - 09/23/2022 9:47 AM EST Spoke with pt in regards to his fistulagram not working. Stated that it was not cleaning. Physicians were having to use the one in his chest. Pt stated he did not want the physician to perform a procedure. Pt wanted to know what the last physician talked with Dr. Frias about his fistulagram. I tookpt's phone number [phone] and told him I'd give it to Dr. Frias. documented in this encounter Plan of Treatment Upcoming Encounters Date Type Department Care Team (Late st Contact Info) Description 07/15/2024 9:00 AM EST Hospital Encounter [facility] Interventional Radiology [address] [place] [phone] Herve Carrillo MD [address] [facility] [address] [place] [phone] documented as of this encounter Visit Diagnoses Not on filedocumented in this encounter Additional Health Concerns Assessment Noted Time PHQ-9 Depression Total Score: 0 12/06/19 18 3:00 PM EDT documented as of this encounter Care Teams Senior Consumer Insights Consultant Relationship Specialty Start Date End Date Edgar Fournier MD [address] [place] [address] [place] [address] PCP - General 12/22/21 Maile Valles, RN Txp Post Coordinator Transplant Hepatology 11/07/17 Jack Ordoñez MD [address] [place] [address] Consulting Physician Transplant Hepatology 01/05/18 Estephania Sharif, PharmD Pharmacist Pharmacist 11/11/19 documented as of this encounter
--- OUTSIDE RECORDS SUMMARY | 2024-07-12 12:27 | XMS_ITS | Encounter Summary ---
Author Organization [facility] Address [address] [place] [address] Care Team Providers Care Enamel Drier Name Role Phone Maile Valles RN Unavailable Unavail able Jack Ordoñez MD Unavailable [phone] Estephania Sharif PharmD Unavailable Christine Edgar Tolentino MD Primary Care Provider [phone] Source Comments This information has been disclosed [...] release of HIV test results or diagnoses. [id number] Reason for Visit * Diagnostic Imaging (Routine) - Closed Specialty Diagnoses / Procedures Referred By Contac t Referred To Contact Diagnoses Pre-transplant evaluation for kidney transplant Hypertension, unspecified type Pulmonary HTN (CMS-HCC) Procedures Cath Case Request: Right Heart Cath and admission for optimization [place] RIGHT HEART CATH O2 SATURATION & CARDIAC OUTPUT Fermín Schulte MD Ahmad, Saad S, MD Referral ID Status Reason Start Date Expiration Date Visits Re quested Visits Authorized [id number] Closed 11/15/2022 05/14/2023 1 1 Encounter Details Date Type Department Care Team (Latest Contact Info) Description 11/22/2022 11:12 AM EDT - 11/22/2022 6:00 PM EDT Hospital Encounter [facility] [address] [place] [address] Fermín Schulte MD Pre-transplant evaluation for kidney transplant; Hypertension, unspecified type; Pulmonary HTN ([facility]) Discharge Disposition: Home or Self [...] Sign Reading Time Taken Comments Blood Pressure 154/83 11/22/2022 5:00 PM EDT Pulse 76 11/22/2022 5:00 PM EDT Temperature 36.7 ??C (98 ??F) 11/22/2022 2:17 PM EDT Respiratory Rate 16 11/22/2022 5:00 PM EDT Oxygen Saturation 97% 11/22/2022 5:00 PM EDT Inhaled Oxygen Concentration 97% 11/22/2022 5 :00 PM EDT Weight 134.6 kg (296 lb [...] re-transplant evaluation for kidney transplant,Pulmonar y HTN ([facility]),Essential (primary) hypertension Take 2 tablets (50 mg [...] weekly in place of monjarno 3 02/08/20 23 proMETHazine (PHENERGAN) 12.5 MG tablet Take 1 tablet (12.5 mg total) by mouth every 6 hours as needed. 02/08/20 23 sevelamer carbonate (RENVELA) 800 mg tablet Take 2 tablets (1,600 mg total) by mouth 3 times a day with meals. 09/05/19 24 spironolactone (ALDACTONE) 25 MG tabletIndications:P ulmonary HTN (CMS-HCC) Take 1 tablet (25 mg total) by mouth daily. 90 tablet 1 2 02/08/20 23 VASCEPA 1 gram Cap TAKE 2 Capsule by mouth twice daily 2 01/25/20 24 zolpidem (AMBIEN) 10 mg tablet Take 1 tablet (10 mg total) by mouth at bedtime as needed. 2 02/08/20 23 documented as of this encounter Nursing Notes [...] Description 07/15/2024 9:00 AM EST Hospital Encounter [facility] Interventional Radiology [address] [phone] Herve Carrillo MD [address] [facility] [place] [phone] documented as of this encounter Procedures Procedure Name Priority Date/Time Associated Diagnosis Comments RIGHT HEART CATH Routine 11/22/2022 3:53 PM EDT Pre-transplant evaluation for kidney transplant Hypertension, unspecified type Pulmonary HTN ([facility]) POC TOTAL HEMOGLOBIN Routine 11/22/2022 3:39 PM [...] Narrative RADNET - 11/25/2022 10:32 PM EDT *[facility]* Cardiac Fringe Weaver [address] [place] [address] CATHETERIZATION LAB STUDY Patient: ? Stauffer, Aiden ?Age: ?47 ?Study Date: ? 11/22/2022 ? [...] Right internal jugular vein access. A 4f Etonkids mini access kit sheath was advanced into the ?? vessel. 4. Sheath exchange. The sheath was exchanged for a [id number] [place] sheath. 5. Right heart catheterization. A 7F Catheter, [place]-Neeru TD catheter was advanced via the access [...] + + !MPA pressure s/d (m) ? ! (30) ?! + + + !Aortic pressure s/d (m) ??!131/88 (102) ?! + + + !SVR ?!964dyn-sec/cm5 ?! + + + !SVRI ? !6961foq-pfg-w^2/cm5 ? ! + + + !PVR ?!161dyn-sec/cm5 ?! + + + !PVRI ? !095ndo-ajz-e^2/cm5 ?! + + + !Total systemic resistance!1092dyn-sec/cm5, 4753nom-gsk-f^2/cm5! + + + Saturations: + + + !Stage description !Condition 1 -! + + + !Saturation, RA ?!72.8% ?! + + + !Saturation, PA/MPA!71.6% ?! + + + !Saturation, aorta !94% ?! + + + ATTESTATION: Dr. Reed was present for the entire procedure. Dr. Prasad was the initial author of this report. Prepared and electronically signed by Oliver Reed MD [id number] Procedure Note Oliver Reed MD - 11/25/2022 *[facility]* Cardiac Fringe Weaver [address] [place] [address] CATHETERIZATION LAB STUDY Patient: Aiden Stauffer Age: [...] Right internal jugular vein access. A 4f Etonkids mini access kitsheath was advanced into the vessel. 4. Sheath exchange. The sheath was exchanged for a [id number] Pinnaclesheath. 5. Right heart catheterization. A 7F Catheter, [place]-Neeru TD catheter wasadvanced via the access site [...] + + + !RV pressure s/d, ed !44/12, 12 ! + + + !PA wedge a/v (m) !1515 (15) ! + + + !MPA pressure s/d (m) !4420 (30) ! + + + !Aortic pressure s/d (m) !131/88 (102) ! + + + !SVR !964dyn-sec/cm5 ! + + + !SVRI !6512yjt-xcv-w^2/cm5 ! + + + !PVR !161dyn-sec/cm5 ! + + + !PVRI !542skk-rsv-z^2/cm5 ! + + + !Total systemic resistance!1092dyn-sec/cm5, 5137msz-xqc-x^2/cm5! + + + Saturations: + + + !Stage description !Condition 1 -! + + + !Saturation, RA !72.8% ! + + + !Saturation, PA/MPA!71.6% ! + + + !Saturation, aorta !94% ! + + + ATTESTATION: Dr. Reed was present for the entire procedure. Dr. Prasad was the initial author of this report. Prepared and electronically signed by Oliver Reed MD [id number] us Fermín [place] [id number] Final Result Performing Organization Address City/[facility] Co de Phone Number RADNET * (ABNORMAL) POC Oxyhemoglobin (11/22/2022 3:39 PM EDT) Pathologist [facility] POC Oxyhemoglobin 71.6(L) 95 - 98 % 023 3:40 PM EDT [facility]ALTH LAB Comment:SEE CATH REPORT FOR COMPREHENSIVE RESULTS Blood, Arterial 11/22/2022 3 :39 PM EDT 11/22/2022 3:40 PM EDT us Fermín Schulte MD LAB BLOOD ORDERABLES Final Resul t Performing Organization Address City/[facility] Co de Phone Number [facility] [address] * (ABNORMAL) POC Total Hemoglobin (11/22/2022 3:39 PM EDT) POC Total Hemoglobin 12.0(L) 14.0 - 18.0 g/dL 11/22/2022 3:40 PM EDT [facility] Comment:SEE CATH REPORT FOR COMPREHENSIVE RESULTS Blood, Arterial 11/22/2022 3 :39 PM EDT 11/22/2022 3:40 PM EDT Result Yuri Schulte MD LAB BLOOD ORDERABLES Final Resul t Performing Organization Address City/[facility]/ZIP Co de Phone Number [facility] [address] [facility]. [address] * (ABNORMAL) POC Oxyhemoglobin (11/22/2022 3:37 PM EDT) POC Oxyhemoglobin 72.8(L) 95 - 98 % 023 3:37 PM EDT [facility] Comment:SEE CATH REPORT FOR COMPREHENSIVE RESULTS Blood, Arterial 11/22/2022 3 :37 PM EDT 11/22/2022 3:37 PM EDT Result Yuri Schulte MD LAB BLOOD ORDERABLES Final Resul t Performing Organization Address [facility] Co de Phone Number [facility] [address] [facility]. [address] * (ABNORMAL) POC Total Hemoglobin (11/22/2022 3:37 PM EDT) POC Total Hemoglobin 12.1(L) 14.0 - 18.0 g/dL 11/22/2022 3:37 PM EDT [facility] Comment:SEE CATH REPORT FOR COMPREHENSIVE RESULTS Blood, Arterial 11/22/2022 3 :37 PM EDT 11/22/2022 3:37 PM EDT Result Yuri Schulte MD LAB BLOOD ORDERABLES Final Resul t Performing Organization Address City/[facility]/ZIP Co de Phone Number [facility] [address] [place] [facility]. [address] * (ABNORMAL) POC Glucose Monitoring Device (11/22/2022 3:02 PM EDT) POC Glucose Monitoring Device 101(H) 70 - 100 mg/dL 11/22/2022 3:03 PM EDT [facility] Blood 11/22/2022 3:02 PM EDT 11/22/2022 3:03 PM EDT us Fermín Schulte MD POINT OF CARE TEST ORDERABLES Fi nal Result Performing Organization Address [facility] Co de Phone Number [facility] [address] * Protime-INR (11/22/2022 2:10 PM EDT) Protime 12.8 12.1 - 15.1 seconds 11/22/2022 2:51 PM EDT [facility] INR 0.9 0.9 - 1.1 11/22/2022 2:51 PM EDT [facility] Comment: RECOMMENDED THERAPEUTIC RANGES USING INR : ?Stable oral anticoagulant therapy: ? 2.0 - 3.0 ?Mechanical prosthetic heart valve: ? 2.5 - 3.5 ?Recurrent acute myocardial infarction: ? 2.5 - 3.5 Plasma 11/22/2022 2:10 PM EDT 11/22/2022 2:27 PM EDT Narrative [facility] - 11/22/2022 2:51 PM EDT If not done within 14 days or preform day of procedure for any patients with liver issues or on Coumadin us Darling Farfan PLANE CAP[employer] LAB BLOOD ORDERABLES Final Res ult Performing Organization Address [facility]/ZIP Co de Phone Number [facility] [address] [facility]. [address] * (ABNORMAL) Basic metabolic panel (11/22/2022 2:10 PM EDT) Sodium 138 133 - 146 mmol/L 11/22/2022 3:18 PM EDT [facility] Potassium SEE COMMENT 3.5 - 5.3 mmol/L 11/22/2022 3:18 PM EDT [facility] Comment:Specimen Grossly Hem olyzed. Potassium result not obtainable. Recollect specimen. Chloride 95(L) 98 - 110 mmol/L 11/22/2022 3:18 PM EDT [facility] CO2 30 21 - 33 mmol/L 11/22/2022 3:18 PM EDT [facility] LAB Comment:MODERATE TO GROSS HE MOLYSIS EVIDENT. RESULTS MAY BE INFLUENCED. Anion Gap 13 3 - 16 mmol/L 11/22/2022 3:18 PM EDT [facility] BUN 64(H) 7 - 25 mg/dL 11/22/2022 3:18 PM EDT [facility] Comment:MODERATE TO GROSS HE MOLYSIS EVIDENT. RESULTS MAY BE INFLUENCED. Creatinine 9.87(H) 0.60 - 1.30 mg/dL 11/22/2022 3:18 PM EDT [facility] Comment:MODERATE TO GROSS HE MOLYSIS EVIDENT. RESULTS MAY BE INFLUENCED. Glucose 94 70 - 100 mg/dL 11/22/2022 3:18 PM EDT [facility] Comment:MODERATE TO GROSS HE MOLYSIS EVIDENT. RESULTS MAY BE INFLUENCED. Calcium 10.1 8.6 - 10.3 mg/dL 11/22/2022 3:18 PM EDT [facility] Comment:MODERATE TO GROSS HE MOLYSIS EVIDENT. RESULTS MAY BE INFLUENCED. Osmolality, Calculated 304 278 - 305 mOsm/kg 11/22/2022 3:18 PM EDT [facility] EGFR 6 11/22/2022 3:18 PM EDT [facility] Comment:As of 2021, the estimated [...] PM EDT 11/22/2022 2:27 PM EDT Narrative [facility] - 11/22/2022 3:18 PM EDT If not done within 14 days or previous BMP results were abnormal us Darling Farfan [facility] BLOOD ORDERABLES Final Res ult [facility] [address] [place] [address], [facility] * (ABNORMAL) CBC (11/22/2022 2:10 PM EDT) WBC 4.9 3.8 - 10.8 10E3/uL 11/22/2022 2:36 PM EDT [facility] RBC 3.99(L) 4.20 - 5.80 10E6/uL 11/22/2022 2:36 PM EDT [facility] Hemoglobin 13.4 13.2 - 17.1 g/dL 11/22/2022 2:36 PM EDT [facility] Hematocrit 41.0 38.5 - 50.0 % 11/22/2022 2:36 PM EDT [facility] MCV 102.8(H) 80.0 - 100.0 fL 11/22/2022 2:36 PM EDT [facility] MCH 33.7(H) 27.0 - 33.0 pg 11/22/2022 2:36 PM EDT [facility] MCHC 32.8 32.0 - 36.0 g/dL 11/22/2022 2:36 PM EDT [facility] RDW 15.9(H) 11.0 - 15.0 % 11/22/2022 2:36 PM EDT [facility] Platelets 177 140 - 400 10E3/uL 11/22/2022 2:36 PM EDT [facility] MPV 7.5 7.5 - 11.5 fL 11/22/2022 2:36 PM EDT [facility] Whole Blood 11/22/2022 2:10 PM EDT 11/22/2022 2:27 PM EDT Narrative [facility]ALTH LAB - 11/22/2022 2:36 PM EDT If not done within 14 days or if previous CBC results were abnormal us Darling Farfan [employer] LAB BLOOD ORDERABLES Final Res ult [facility] [address] [facility] [place] [address], [facility] * CARDIAC CATH DOCUMENTS SCAN (11/22/2022 [...] 1 mg 1 mg, Intravenous, Once, On Mon11/22/22 at 1430, For 1 dose Given 11/22/2022 [...] documented as of this encounter Care Teams Enamel Drier Relationship Specialty Start Date End Date Edgar Fournier MD [address] [place] [address] [place] [address] PCP - General 12/22/21 Maile Valles, RN Txp Post Coordinator Transplant Hepatology 11/07/17 Jack Ordoñez MD [facility] [place] [address] Consulting Physician Transplant Hepatology 01/05/18 Estephania Sharif, DarrianD Pharmacist Pharmacist 11/11/19 documented as of this encounter
--- OUTSIDE RECORDS SUMMARY | 2024-07-12 12:27 | XMS_ITS | Encounter Summary ---
Author Organization [facility] Address [address] [place] [address] Care Team Providers Care Roof Panel Hanger Name Role Phone Maile Valles RN Unavailable Unavail able Jack Ordoñez MD Unavailable [phone] Estephania Sharif PharmD Unavailable Christine Edgar Tolentino MD Primary Care Provider [phone] Source Comments This information has been disclosed [...] release of HIV test results or diagnoses. [id number] Health Encounter Details Date Type Department Care Team (Late st Contact Info) Description 07/28/2022 Chart Note [facility] Advanced Heart Failure at [facility] [address] [facility] [address] [place] [address] Vanessa Anguiano, JANA Social History Tobacco Use Types Packs/Day [...] suspected to have Coronavirus/COVID-19? No / Unsure 07/05/2022 10:33 AM EST documented as of this encounter Plan of Treatment Upcoming Encounters Date Type Department Care Team (Late st Contact Info) Description 07/15/2024 9:00 AM EST Hospital Encounter [facility] Interventional Radiology [address] [place] [address] Herve Carrillo MD [address] [facility] [address] [place] [address] documented as of this encounter Procedures Procedure Name Priority Date/Time Associated Diagnosis Comments RENAL FUNCTION PANEL W/EGFR Routine 07/15/2022 10:52 AM EST CBC AND DIFFERENTIAL Routine 07/15/2022 10:52 AM EST GLUCOSE, RANDOM Routine 07/15/2022 10:52 AM EST HEPATIC FUNCTION PANEL Routine 07/15/2022 10:52 AM EST RENAL FUNCTION PANEL W/O EGFR Routine 07/15/2022 10:52 AM EST documented in this encounter Results * Glucose, random (07/15/2022 10:52 AM EST) Glucose 109 60 - 200 mg/dL Plasma Result [facility] MD LAB BLOOD ORDERABLES Yoselin l Result * Hepatic function panel (07/15/2022 10:52 AM EST) Pathologist [facility] Alkaline Phosphatase 61 U/L ALT 10 U/L AST 15 U/L Total Protein 8.3 g/dL Total Bilirubin 0.6 0.1 - 1.4 mg/dL Bilirubin, Direct 0.3 mg/dL Albumin 3.9 3.5 - 5.0 g/dL Blood Result [facility] MD LAB BLOOD ORDERABLES Yoselin l Result * (ABNORMAL) Renal Function Panel w/o EGFR (07/15/2022 10:52 AM EST) [facility] BUN 21 4 - 21 mg/dL CO2 35(A) 13 - 22 mmol/L Creatinine 3.8(A) 0.6 - 1.3 mg/dL Potassium 3.5 3.4 - 5.3 mmol/L Sodium 141 137 - 147 mmol/L Chloride 99 99 - 108 mmol/L Calcium 8.9 8.7 - 10.7 mg/dL Blood Result [facility] MD LAB BLOOD ORDERABLES Yoselin l Result * (ABNORMAL) CBC and differential (07/15/2022 10:52 AM EST) [facility] Hemoglobin 10.8(A) 13.5 - 17.5 g/dL Hematocrit 34.5(A) 41 - 53 % RDW 15.9(A) 11.5 - 14.5 % MCH 32.7 26.0 - 34.0 pg MCHC 31.3 30 - 37 g/dL MCV 104.5 82.0 - 108.0 fL Platelets 212 K/??L RBC 3.3(A) 4.50 - 5.90 10^6/??L WBC 4.2 10^3/mL Blood Result [facility] MD LAB BLOOD ORDERABLES Yoselin l Result * Renal Function Panel w/EGFR (07/15/2022 10:52 AM EST) EGFR 18 mg/dL Plasma us Historical Provider LAB BLOOD ORDERABLES Yoselin l Result documented in this encounter Visit Diagnoses Not on filedocumented in this encounter Additional Health Concerns Assessment Noted Time PHQ-9 Depression Total Score: 0 12/06/19 18 3:00 PM EDT documented as of this encounter Care Teams Roof Panel Hanger Relationship Specialty Start Date End Date Edgar Fournier MD [address] [place] [address] [place] [address] PCP - General 12/22/21 Maile Valles, RN Txp Post Coordinator Transplant Hepatology 11/07/17 Jack Ordoñez MD [address] [place] [address] Consulting Physician Transplant Hepatology 01/05/18 Estephania Sharif, DarrianD Pharmacist Pharmacist 11/11/19 documented as of this encounter
--- OUTSIDE RECORDS SUMMARY | 2024-07-12 12:27 | XMS_ITS | Encounter Summary ---
Author Organization [facility] Address [address] [place] [address] Care Team Providers Care Financial Services Intern Name Role Phone Maile Valles RN Unavailable Unavail able Jack Ordoñez MD Unavailable [phone] Estephania Saravia PharmD Unavailable Christine Edgar Tolentino MD Primary Care Provider [phone] Source Comments This information has been disclosed [...] release of HIV test results or diagnoses. [id number] Health Encounter Details Date Type Department Care Team (Late st Contact Info) Description 08/23/2022 Telephone [facility] [address] [place] [id number] Estephania Saravia, PharmD Social History Tobacco Use Types Packs/Day Years [...] encounter Miscellaneous Notes * Telephone Encounter - Estephania Saravia, PharmD - 08/23/2022 12:16 PM EST [facility]: Transplant Assessment Aiden Stauffer is a 47 y.o. old male patient who has a past medical history of Past Medical History: Diagnosis Date ??? Acute [...] osteomyelitis (CMS Dx) ??? Vitamin D deficiency Transplant Type: Liver Transplant Date: 10/08/2017 Medication Reconciliation: ?? Patient reported immunosuppressive regimen as: ?? Cyclosporine modified 100mg twice daily ?? Mycophenolate 250mg twice daily ?? Patient reported prophylaxis regimen as: ?? Entecavir 0.5mg weekly ?? New Meds/Medication Changes: ?? Pt no longer taking magnesium or isosorbide, medication list updated. Patient's prescription and non-prescription medications and natural supplements were reviewed with the patient by Estephania Saravia and medication list updated. Current Outpatient Medications Medication Sig ??? ALPRAZolam Take 0.5 mg by mouth if needed for Sleep. ??? aspirin Chew 1 tablet (81 mg total) by mouth daily with breakfast. ??? calcium acetate(phosphat bind) Take 667 mg by mouth 3 times a day with meals. And snacks ??? carBAMazepine Take 200 mg by mouth 2 times a day. ??? carvediloL Take 2 tablets (50 mg total) by mouth 2 times a day with meals. ??? cholecalciferol (vitamin D3) Take 1 capsule by mouth three times weekly on Monday, , and Monday. ??? cinacalcet Take 1 tablet (30 mg total) by mouth daily with breakfast. ??? cycloSPORINE modified Take 4 capsules (100 mg total) by mouth 2 times a day. ??? doxazosin Take 8 mg by mouth at bedtime. ??? entecavir Take 1 tablet (0.5 mg total) by mouth every 7 days. ??? fenofibrate micronized Take 134 mg by mouth every morning before breakfast. ??? ferrous sulfate Take 1 tablet (325 mg total) by mouth daily with breakfast. ??? folic acid Take 1 tablet (1 mg total) by mouth daily. ??? gabapentin Take 1 capsule (100 mg total) by mouth 3 times a day. ??? HumuLIN N NPH Insulin KwikPen if needed. ??? hydrALAZINE Take 1 tablet (100 mg total) by mouth every 8 hours. ??? lisinopriL Take 1 tablet (40 mg total) by mouth daily. ??? methocarbamoL Take 500 mg by mouth 4 times daily before meals and at bedtime. ??? montelukast Take 10 mg by mouth daily. ??? mycophenolate Take 1 capsule (250 mg total) by mouth 2 times a day. ??? NIFEdipine Take 90 mg by mouth 2 times a day. ??? ondansetron Take 4 mg by mouth every 8 hours as needed. ??? pantoprazole Take 1 tablet (40 mg total) by mouth 2 times a day. (Patient taking differently: Take 40 mg by mouth 3 times a day.) ??? polyethylene glycol Take 17 g by mouth daily as needed (mild constipation (no BM for 24 hrs)). ??? proMETHazine Take 12.5 mg by mouth every 6 hours as needed. ??? sevelamer carbonate Take 1,600 mg by mouth 3 times a day with meals. ??? spironolactone Take 1 tablet (25 mg total) by mouth daily. ??? testosterone cypionate Inject into the muscle every 28 days. ??? Vascepa TAKE 2 Capsule by mouth twice daily ??? zolpidem Take 1 tablet (10 mg total) by mouth at bedtime as needed. No current facility-administered medications for this visit. Facility-Administered Medications Ordered in Other Visits Medication Dose Frequency Provider Last Admin ??? glucose 12 g Q15 Min ILYA Roman MD ??? insulin lispro 0-4 Units Q4H Murtaza Roman MD ??? lactated Ringers 125 mL/hr Continuous Murtaza Roman MD ??? naloxone 0.04 mg Q15 Min PRFadumo Roman MD ??? ondansetron 4 mg Q8H PRFadumo Roman MD ??? proMETHazine 6.25 mg Q6H PRFadumo Roman MD ??? sodium chloride 0.9 % 1,000 mL Continuous Mukul Schuler MD Allergies Allergen Reactions ??? Tacrolimus Other (See Comments) Anxious feeling and muscle jerking. TOLERATED ENVARSUS BETTER THAN PROGRAF. ??? Codeine Sulfate Hyper ??? Codeine Other (See Comments) Becomes hyper Medication list evaluated for clinically significant drug interactions, with the following noted: N/A Lab Results Component Value Date WBC 4.2 07/15/2022 HGB 10.8 (A) 07/15/2022 HCT 34.5 (A) 07/15/2022 MCV 104.5 07/15/2022 PLT 212 07/15/2022 Lab Results Component Value Date GLUCOSE 109 07/15/2022 BUN 21 07/15/2022 CREATININE 3.8 (A) 07/15/2022 K 3.5 07/15/2022 BCR 6.9 11/19/2020 PHOS 5.6 (H) 06/23/2022 ALBUMIN 3.9 07/15/2022 EGFR 18 07/15/2022 Adherence & Counseling: ??? Issues (if any) patient has had with taking medication as prescribed: none ??? Assessment of patient's medication adherence: followed as prescribed ??? Patient???s perception of effectiveness of medication therapy: positve perception ??? Vaccination Status o Pt did not get annual flu shot o Pt received 2 COVID vaccines Adverse Effects & Patient Issues: ??? Assessment of occurrence of medication adverse effects: none ??? Denies signs/symptoms of infection (fever,chills,new onset diarrhea/vomiting, shortness of breath, burning or pain with urination as applicable) ??? Functional Disabilities: not applicable ??? Of note, patient did have recent admission to local ED for diarrhea. Assessment of Patient's Therapy and Barriers: ?? Assessment of continued appropriateness of therapy: appropriate ?? Assessment of continued effectiveness of therapy: prevention of organ rejection and drug level monitoring ?? Needs assessment: none identified ?? Strategies to address needs: not applicable ?? Treatment based on AASLD guidelines and 's liver transplant protocol Patient-Specific Care Plan (if applicable): ??? Goal: prevent organ rejection through medication compliance ??? Time Frame: 1 year ?? Resources available to implement care management plan: not applicable ?? Patient's motivation: high ? ? Goal: maintain therapeutic cyclosporine trough concentration (goal 25-75) --> last level therapeutic at 31.3 on 04/07/22 ??? Time Frame: 1 year ?? Resources available to implement care management plan: not applicable ?? Patient's motivation: high Follow-Up: Prescriptions will be filled by [facility]. Method of delivery: shipped via [employer] by end of day 08/24/22. Patient should receive medication 08/26/22. Reassessment due in 1 year, approximately 08/23/2023. Routed note to provider for review. ESTEPHANIA SARAVIA [facility] [phone] (phone) 08/23/2022, 12:16 PM documented in this encounter Plan of Treatment Upcoming Encounters Date Type Department Care Team (Late st Contact Info) Description 07/15/2024 9:00 AM EST Hospital Encounter [facility] Interventional Radiology [address] [place] [id number] Herve Carrillo MD [address] [place] [address] documented as of this encounter Visit Diagnoses Not on filedocumented in this encounter Additional Health Concerns Assessment Noted Time PHQ-9 Depression Total Score: 0 12/06/19 18 3:00 PM EDT documented as of this encounter Care Teams Financial Services Intern Relationship Specialty Start Date End Date Edgar Fournier MD [address] [place] [address] [place] [address] PCP - General 12/22/21 Maile Valles, JANA Txp Post Coordinator Transplant Hepatology 11/07/17 Jack Ordoñez MD [address] [place] [address] Consulting Physician Transplant Hepatology 01/05/18 Estephania Saravia, DarrianD Pharmacist Pharmacist 11/11/19 documented as of this encounter
--- OUTSIDE RECORDS SUMMARY | 2024-07-12 12:27 | XMS_ITS | Encounter Summary ---
Author Organization [facility] Address [address] [place] [address] Care Team Providers Care Hand Sizer Name Role Phone Maile Valles RN Unavailable Unavail able Jack Ordoñez MD Unavailable [phone] Estephania Sharif PharmD Unavailable Christine Edgar Tolentino MD Primary Care Provider [phone] Source Comments This information has been disclosed [...] release of HIV test results or diagnoses. [id number] Health Encounter Details Date Type Department Care Team (Latest Contact Info) Description 08/26/2022 12:20 PM EST Procedure visit [facility] Advanced Heart Failure at [facility] [address] [facility] [address] [place] [address] Fermín Schulte MD Whitton, Anita, CNP Heart failure, unspecified HF chronicity, unspecified heart failure type ([facility]-H[facility]) (Primary Dx) Social History Tobacco Use [...] as of this encounter Progress Notes * Diana Reid, RAMON - 08/26/2022 12:20 PM EST 06/23/22 RA - 22 RV - 60/20 PA - 55/32 PCWP - 25 PAD - 28 Cardiomems At the time of baseline euvolemia, PA diastolic 28 with a PCWP of 25. PA diastolic range from 23 to31 since the previous transmission. PATIENT ON DIALYSIS AND HAVE BEEN TALKING TO DIALYSIS TO DECREASE DRY WEIGHT need adjustment of medical therapy. Diuretics unchanged 08-23-2022, 10:19 PM 49 mmHg 24 mmHg 34 mmHg 4 79 bpm 08-16-2022, 10:53 PM 53 mmHg 27 mmHg 39 mmHg 9 77 bpm 08-16-2022, 10:45 PM 53 mmHg 28 mmHg 39 mmHg 9 76 bpm Ignored 08-15-2022, 11:33 PM 52 mmHg 27 mmHg 38 mmHg 8 78 bpm 08-14-2022, 11:49 AM 53 mmHg 28 mmHg 39 mmHg 9 77 bpm 08-12-2022, 10:48 PM 50 mmHg 25 mmHg 35 mmHg 5 86 bpm 08-11-2022, 09:50 PM 50 mmHg 25 mmHg 35 mmHg 5 79 bpm 08-11-2022, 12:06 AM 47 mmHg 25 mmHg 34 mmHg 4 82 bpm 08-09-2022, 01:12 PM 46 mmHg 23 mmHg 33 mmHg 3 88 bpm 08-07-2022, 10:31 PM 52 mmHg 31 mmHg 40 mmHg 10 77 bpm 08-02-2022, 10:01 PM 48 mmHg 23 mmHg 34 mmHg 4 85 bpm 07-28-2022, 09:18 PM 45 mmHg 22 mmHg 31 mmHg 1 77 bpm 07-27-2022, 11:48 PM 49 mmHg 25 mmHg 35 mmHg 5 83 bpm 07-24-2022, 09:03 PM 43 mmHg 26 mmHg 33 mmHg 3 documented in this encounter Plan of Treatment Upcoming Encounters Date Type Department Care Team (Late st Contact Info) Description 07/15/2024 9:00 AM EST Hospital Encounter [facility] Interventional Radiology [address] [place] [id number] Herve Carrillo MD [address] [facility] [address] [place] [phone] documented as of this encounter Visit Diagnoses Diagnosis Heart failure, unspecified HF chronicity, unspecified heart failure type (CMS-HCC)- Primary documented in this encounter Additional Health Concerns Assessment Noted Time PHQ-9 Depression Total Score: 0 12/06/19 18 3:00 PM EDT documented as of this encounter Care Teams Hand Sizer Relationship Specialty Start Date End Date Edgar Fournier MD [address] [place] [address] [place] [address] PCP - General 12/22/21 Maile Valles, JANA Txp Post Coordinator Transplant Hepatology 11/07/17 Jack Ordoñez MD [address] [place] [id number] Consulting Physician Transplant Hepatology 01/05/18 Estephania Sharif, DarrianD Pharmacist Pharmacist 11/11/19 documented as of this encounter
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
--- OUTSIDE RECORDS SUMMARY | 2024-07-12 12:27 | XMS_ITS | Encounter Summary ---
Author Organization [facility] Address [address] [place] [address] Care Team Providers Care Can Pusher Name Role Phone Maile Valles RN Unavailable Unavail able Jack Ordoñez MD Unavailable [phone] Estephania Sharif PharmD Unavailable Christine Edgar Tolentino MD Primary Care Provider [phone] Source Comments This information has been disclosed [...] release of HIV test results or diagnoses. [id number] Health Encounter Details Date Type Department Care Team (Late st Contact Info) Description 09/23/2022 Orders Only [facility] Interventional Radiology [address] [place] [phone] Vivek Vallejo, RAMON [address] [phone] Social History Tobacco Use Types Packs/Day Years [...] [facility] Interventional Radiology [address] [place] [phone] Herve Carrillo MD [address] [facility] [address] [place] [phone] documented as of this encounter Visit Diagnoses Not on filedocumented in this encounter Additional Health Concerns Assessment Noted Time PHQ-9 Depression Total Score: 0 12/06/19 18 3:00 PM EDT documented as of this encounter Care Teams Can Pusher Relationship Specialty Start Date End Date Edgar Fournier MD [address] [place] [address] [place] [address] PCP - General 12/22/21 Maile Valles, JANA Txp Post Coordinator Transplant Hepatology 11/07/17 Jack Ordoñez MD [address] [place] [phone] Consulting Physician Transplant Hepatology 01/05/18 Estephania Sharif, PharmD Pharmacist Pharmacist 11/11/19 documented as of this encounter
--- OUTSIDE RECORDS SUMMARY | 2024-07-12 12:27 | XMS_ITS | Encounter Summary ---
Author Organization [facility] Address [address] [place] [address] Care Team Providers Care Web Press Roll Tender Name Role Phone Maile Valles RN Unavailable Unavail able Jack Ordoñez MD Unavailable [phone] Estephania Sharif PharmD Unavailable Christine Edgar Tolentino MD Primary Care Provider [phone] Source Comments This information has been disclosed [...] release of HIV test results or diagnoses. [id number] Reason for Visit * Reason Comments Medical Management Encounter Details Date Type Department Care Team (Late st Contact Info) Description 09/21/[address] [facility] Advanced Heart Failure at [place] [facility] [address] [facility] [address] [place] [address] Humza Riley CNP Medical Management [...] encounter Miscellaneous Notes * Telephone Encounter - Altagracia Edmondson - 09/22/2022 10:54 AM EST LM for the pt to call our office @ [phone] to reschedule w/Humza Riley. * Telephone Encounter - Suellen Recio - 09/21/2022 12:13 PM EST Aiden reports recent admittance at [facility] and cancelled today's appointment due tofeeling weak from today's dialysis documented in this encounter Plan of Treatment Upcoming Encounters Date Type Department Care Team (Late st Contact Info) Description 07/15/2024 9:00 AM EST Hospital Encounter [facility] Interventional Radiology [address] [place] [address] Herve Carrillo MD [address] [place] [address] documented as of this encounter Visit Diagnoses Not on filedocumented in this encounter Additional Health Concerns Assessment Noted Time PHQ-9 Depression Total Score: 0 12/06/19 18 3:00 PM EDT documented as of this encounter Care Teams Web Press Roll Tender Relationship Specialty Start Date End Date Edgar Fournier MD [address] [place] [address] Dr Givens [place] Guz[place] [phone] PCP - General 12/22/21 Maile Valles, RN Txp Post Coordinator Transplant Hepatology 11/07/17 Jack Ordoñez MD [address] [place] [address] Consulting Physician Transplant Hepatology 01/05/18 Estephania Sharif, PharmD Pharmacist Pharmacist 11/11/19 documented as of this encounter
--- OUTSIDE RECORDS SUMMARY | 2024-07-12 12:27 | XMS_ITS | Encounter Summary ---
Author Organization [facility] Address [address] [place] [address] Care Team Providers Care Griddle Cook Name Role Phone Maile Valles RN Unavailable Unavail able Jack Ordoñez MD Unavailable [phone] Estephania Sharif PharmD Unavailable Christine Edgar Tolentino MD Primary Care Provider [phone] Source Comments This information has been disclosed [...] release of HIV test results or diagnoses. [id number] Reason for Visit * Reason Comments Return Call Encounter Details Date Type Department Care Team (Late st Contact Info) Description 11/15/2022 Telephone [facility] Advanced Heart Failure at [place] [facility] [address] [facility] [address] [place] [address] Fermín Schulte MD Return Call Social History Tobacco Use Types [...] encounter Miscellaneous Notes * Telephone Encounter - Aubrie Carroll - 11/15/2022 2:25 PM EDT Pt returning call to Kimberly- JANA Pt advised he is unable to send a transmission and current weight is 131.2 or 133.2 kg. Pt advised he went into dialysis today at 136 kg. Pt requests return call at [phone]. documented in this encounter Plan of Treatment Upcoming Encounters Date Type Department Care Team (Late st Contact Info) Description 07/15/2024 9:00 AM [facility] Hospital Encounter [facility] Interventional Radiology [address] [place] [phone] Herve Carrillo MD [address] [facility] [address] [place] [address] documented as of this encounter Visit Diagnoses Not on filedocumented in this encounter Additional Health Concerns Infection Onset Date Last Indicated Resolved Time Rule Out C. difficile 11/05/2023 11/06/20232023 10:01 PM EDT Assessment Noted Time PHQ-9 Depression Total Score: 0 12/06/19 18 3:00 PM EDT documented as of this encounter Care Teams Griddle Cook Relationship Specialty Start Date End Date Edgar [place] [address] PCP - General 12/22/21 Maile Valles, RN Txp Post Coordinator Transplant Hepatology 11/07/17 Jack Ordoñez MD [address] [place] [address] Consulting Physician Transplant Hepatology 01/05/18 Estephania Sharif, DarrianD Pharmacist Pharmacist 11/11/19 documented as of this encounter
--- OUTSIDE RECORDS SUMMARY | 2024-07-12 12:27 | XMS_ITS | Encounter Summary ---
Author Organization [facility] Address [address] [place] [address] Care Team Providers Care Household Refrigeration Mechanic Name Role Phone Maile Valles RN Unavailable Unavail able Jack Ordoñez MD Unavailable [phone] Estephania Sharif PharmD Unavailable Christine Edgar Tolentino MD Primary Care Provider [phone] Source Comments This information has been disclosed [...] release of HIV test results or diagnoses. [id number] Health Encounter Details Date Type Department Care Team (Late st Contact Info) Description 06/28/2022 Telephone [facility] Advanced Heart Failure at [place] [facility] [address] [facility] [address] [place] [address] Kimberly Camp, JANA Social History Tobacco Use Types Packs/Day [...] encounter Miscellaneous Notes * Telephone Encounter - Kimberly Camp RN - 06/28/2022 3:12 PM EST Phone # provided by pt. PENA to [facility]. And fax received [phone]. Orders faxed at this time * Telephone Encounter - Kimberly Camp RN - 06/28/2022 3:00 PM EST ----- Message from Humza Riley CNP sent at 06/28/2022 2:55 PM EST ----- Regarding: labs Can we please send all his labs to [facility] that he has that need collecting that Dr. Schulte and I ordered. This should include renal panels with starting spironolactone, CBC,LFT, fecal occult blood test. documented in this encounter Plan of Treatment Upcoming Encounters Date Type Department Care Team (Late st Contact Info) Description 07/15/2024 9:00 AM EST Hospital Encounter [facility] Interventional Radiology [address] [place] [address] Herve Carrillo MD [address] [facility] [address] [facility] [place] [address] documented as of this encounter Visit Diagnoses Not on filedocumented in this encounter Additional Health Concerns Assessment Noted Time PHQ-9 Depression Total Score: 0 12/06/19 18 3:00 PM EDT documented as of this encounter Care Teams Household Refrigeration Mechanic Relationship Specialty Start Date End Date Edgar Fournier MD [address] [place] [address] [place] [address] PCP - General 12/22/21 Maile Valles, JANA Txp Post Coordinator Transplant Hepatology 11/07/17 Jack Ordoñez MD [address] [place] [phone] Consulting Physician Transplant Hepatology 01/05/18 Estephania Sharif, DarrianD Pharmacist Pharmacist 11/11/19 documented as of this encounter
--- OUTSIDE RECORDS SUMMARY | 2024-07-12 12:27 | XMS_ITS | Encounter Summary ---
Author Organization [facility] Address [address] [place] [address] Care Team Providers Care Rv Parts And Service Director Name Role Phone Maile Valles RN Unavailable Unavail able Jack Ordoñez MD Unavailable [phone] Estephania Sharif PharmD Unavailable Christine Edgar Tolentino MD Primary Care Provider [phone] Source Comments This information has been disclosed [...] release of HIV test results or diagnoses. [id number] Health Encounter Details Date Type Department Care Team (Late st Contact Info) Description 06/28/2022 Telephone [facility] Advanced Heart Failure at [place] [facility] [address] [facility] [address] [place] [address] Fermín Schulte MD Social History Tobacco Use Types Packs/Day Years [...] encounter Miscellaneous Notes * Telephone Encounter - Vanessa Anguiano RN - 06/28/2022 9:14 AM EST (Newest Message First) Fermín Schulte MD You 16 hours ago (4:31 PM) Please add [id number] per day documented in this encounter Plan of Treatment Upcoming Encounters Date Type Department Care Team (Late st Contact Info) Description 07/15/2024 9:00 AM EST Hospital Encounter [facility] Interventional Radiology [address] [place] [address] Herve Carrillo MD [address] [facility] [address] [place] [address] documented as of this encounter Results * (ABNORMAL) Basic metabolic panel (11/10/2022 1:12 PM EDT) Sodium 143 133 - 146 mmol/L 11/10/2022 2:12 PM EDT [facility] Potassium 5.6(H) 3.5 - 5.3 mmol/L 11/10/2022 2:12 PM EDT [facility] Chloride 98 98 - 110 mmol/L 11/10/2022 2:12 PM EDT [facility] CO2 31 21 - 33 mmol/L 11/10/2022 2:12 PM EDT [facility] Anion Gap 14 3 - 16 mmol/L 11/10/2022 2:12 PM EDT [facility] BUN 65(H) 7 - 25 mg/dL 11/10/2022 2:12 PM EDT [facility] Creatinine 9.12(H) 0.60 - 1.30 mg/dL 11/10/2022 2:12 PM EDT [facility] Glucose 107(H) 70 - 100 mg/dL 11/10/2022 2:12 PM EDT [facility] Calcium 9.7 8.6 - 10.3 mg/dL 11/10/2022 2:12 PM EDT [facility] Osmolality, Calculated 315(H) 278 - 305 mOsm/kg 11/10/2022 2:12 PM EDT [facility] EGFR 7 11/10/2022 2:12 PM EDT [facility] Comment:As of 2021, the estimated GFR [...] Disease. Am J Kidney Dis. 2020. Plasma 11/10/2022 1:12 PM EDT 11/10/2022 1:40 PM EDT Narrative [facility] - 11/10/2022 2:12 PM EDT Must the patient be fasting for this test?->No us Fermín Schulte MD LAB BLOOD ORDERABLES Final Resul t [facility] [address] [place] [address] documented in this encounter Visit Diagnoses Diagnosis Pulmonary HTN (CMS-HCC)- Primary documented in this encounter Additional Health Concerns Assessment Noted Time PHQ-9 Depression Total Score: 0 12/06/19 18 3:00 PM EDT documented as of this encounter Care Teams Rv Parts And Service Director Relationship Specialty Start Date End Date Edgar Fournier MD [address] [place] [address] [place] [address] PCP - General 12/22/21 Maile Valles, RN Txp Post Coordinator Transplant Hepatology 11/07/17 Jack Ordoñez MD [address] [place] [phone] Consulting Physician Transplant Hepatology 01/05/18 Estephania Sharif, DarrianD Pharmacist Pharmacist 11/11/19 documented as of this encounter
--- OUTSIDE RECORDS SUMMARY | 2024-07-12 12:27 | XMS_ITS | Encounter Summary ---
Author Organization [facility] Address [facility] [place] [address] Care Team Providers Care Logistic Manager Name Role Phone Maile Valles RN Unavailable Unavail able Jack Ordoñez MD Unavailable [phone] Estephania Sharif PharmD Unavailable Christine Edgar Tolentino MD Primary Care Provider [phone] Source Comments This information has been disclosed [...] release of HIV test results or diagnoses. [id number] Encounter Details Date Type Department Care Team (Latest Contact Info) Description 06/23/2022 Travel Social History Tobacco Use Types Packs/Day [...] 9:00 AM EST Hospital Encounter [facility] Interventional Radiology [address] [place] [phone] Herve Carrillo MD [address] [facility] [address] [place] [address] documented as of this encounter Visit Diagnoses Not on filedocumented in this encounter Additional Health Concerns Assessment Noted Time PHQ-9 Depression Total Score: 0 12/06/19 18 3:00 PM EDT documented as of this encounter Care Teams Logistic Manager Relationship Specialty Start Date End Date Edgar Fournier MD [address] [place] [phone] PCP - General 12/22/21 Maile Valles, JANA Txp Post Coordinator Transplant Hepatology 11/07/17 Jack Ordoñez MD [address] [place] [phone] Consulting Physician Transplant Hepatology 01/05/18 Estephania Sharif, DarrianD Pharmacist Pharmacist 11/11/19 documented as of this encounter
--- OUTSIDE RECORDS SUMMARY | 2024-07-12 12:27 | XMS_ITS | Encounter Summary ---
Author Organization [facility] Address [address] [place] [address] Care Team Providers Care Shredder/Granulator Operator Name Role Phone Maile Valles RN Unavailable Unavail able Jack Ordoñez MD Unavailable [phone] Estephania Sharif PharmD Unavailable Christine Edgar Tolentino MD Primary Care Provider [phone] Source Comments This information has been disclosed [...] release of HIV test results or diagnoses. [id number] Reason for Visit * Reason Comments Medication Refill Encounter Details Date Type Department Care Team (Late st Contact Info) Description 11/11/2022 Refill [facility] Liver Transplant at [facility] [address] [facility] [address] [place] [address] Jack Ordoñez MD [address] [place] [address] Social History Tobacco Use Types [...] Description 07/15/2024 9:00 AM EST Hospital Encounter [facility] Interventional Radiology [address] [place] [phone] Herve Carrillo MD [address] [facility] [address] [facility] [place] [address] documented as of this encounter Visit Diagnoses Not on filedocumented in this encounter Additional Health Concerns Assessment Noted Time PHQ-9 Depression Total Score: 0 12/06/19 18 3:00 PM EDT documented as of this encounter Care Teams Shredder/Granulator Operator Relationship Specialty Start Date End Date Edgar Fournier MD [address] [place] [address] [place] [address] PCP - General 12/22/21 Maile Valles, JANA Txp Post Coordinator Transplant Hepatology 11/07/17 Jack Ordoñez MD [address] [place] [phone] Consulting Physician Transplant Hepatology 01/05/18 Estephania Sharif, PharmD Pharmacist Pharmacist 11/11/19 documented as of this encounter
--- OUTSIDE RECORDS SUMMARY | 2024-07-12 12:27 | XMS_ITS | Encounter Summary ---
Author Organization [facility] Address [address] [place] [id number] Care Team Providers Care Inspection Manager Name Role Phone Maile Valles RN Unavailable Unavail able Arnold Ordoñez MD Unavailable [phone] Estephania Sharif PharmD Unavailable Christine Edgar Tolentino MD Primary Care Provider [phone] Source Comments This information has been disclosed [...] release of HIV test results or diagnoses. [id number] Reason for Referral * Diagnostic Imaging (Routine) - Closed Specialty Diagnoses / Procedures Referred By Contac t Referred To Contact Radiology Diagnoses Encounter regarding vascular access for dialysis for end-stage renal disease ([facility]) Procedures IR Angio Dialysis Circuit AMB Referral to Interventional Radiology (BODY IR) [place] INTRO CATH DIALYSIS CIRCUIT DX ANGRPH FLUOR S&I Maru Camp, HOSPITALITY HOUSEKEEPER [address] [facility] [address] [place] [address] Phone: tel: fax: Referral ID Status Reason Start Date Expiration Date Visits Re quested Visits Authorized [id number] Closed 06/14/2022 12/11/2022 1 1 Reason for Visit * Diagnostic Imaging (Routine) - Closed Specialty Diagnoses / Procedures Referred By Contac t Referred To Contact Radiology Diagnoses Encounter regarding vascular access for dialysis for end-stage renal disease ([facility]) Procedures IR Angio Dialysis Circuit AMB Referral to Interventional Radiology (BODY IR) [place] INTRO CATH DIALYSIS CIRCUIT DX ANGRPH FLUOR S&I Maru Camp CNP [address] [facility] [address] [place] [address] Phone: tel: fax: Referral ID Status Reason Start Date Expiration Date Visits Re quested Visits Authorized [id number] Closed 06/14/2022 12/11/2022 1 1 Encounter Details Date Type Department Care Team (Late st Contact Info) Description 07/05/2022 10:35 AM EST - 07/05/2022 11:59 PM EST Hospital Encounter [facility] Interventional Radiology [facility] [place] [address] Maru Camp CNP [address] [facility] [address] [place] [id number] Eneida Frias MD, PhD [address] [address] [place], [facility] [place] [address] Encounter regarding vascular access for dialysis for end-stage renal disease ([facility]) Discharge Disposition: Home or Self [...] AM EST documented as of this encounter Last Filed Vital Signs Vital Sign Reading Time Taken Comments Blood Pressure 152/83 07/05/2022 3:45 PM EST Pulse 69 07/05/2022 3:45 PM EST Temperature - - Respiratory Rate 22 07/05/2022 3:45 PM EST Oxygen Saturation 94% 07/05/2022 3:45 PM EST Inhaled Oxygen Concentration 94% 07/05/2022 3 :45 PM EST Weight - - Height - - Body Mass Index - - documented in this encounter Discharge Instructions * Discharge Instructions* Vera Almanzar RN - 07/05/2022 3:55 PM EST Care after an Fistulogram/Graftogram We value your decision to have [facility] Vascular & Interventional Radiology as part of your care team. Our team is focused on providing you with the highest quality of care. Thank you for givingus the opportunity to care for you or your family member at this time. If you have any questions or concerns that are related to your procedure or your care with Vascular& Interventional Radiology, please call [phone] ([phone]). If you have any questions of concerns regarding your care with other departments please call the [facility] hospital line [phone]. Refer to this sheet in the next few weeks. These instructions provide you with information on caring for yourself after your procedure. Your health care provider may also give you more specific instructions. Your treatment has been planned according to current medical practices, but problems sometimes occur. Call your health care provider if you have any problems or questions after your procedure. WHAT TO EXPECT AFTER THE PROCEDURE You may experience minor discomfort, tenderness or even a small bump at the catheter insertion site. The bump should decrease in size over the next few weeks. You may experience bruising at the insertion site. You may feel sleepiness and fatigue for the rest of the day. HOME CARE INSTRUCTIONS Rest at home for 1-2 days or as directed by your health care provider. Have a friend or family member stay with you for at least 24 hours. Because of the medicines used during the procedure, you should not do the following things in the first 24 hours: Drive Use machinery Be responsible for the care of other people Sign legal documents Take a bath or shower. Keep the bandage (dressing) and angiogram site dry. Drink alcohol. Remove the bandage (dressing) 2 days after the procedure. You may shower 2 days after the procedure. Remove the bandage (dressing) and gently wash the site with plain soap and water. Gently pat the site dry. Do not take baths, swim, or use a hot tub for at least one week. Do not lift anything heavier than 10 pounds for 1 week after this procedure. Do not exercise for 1 week after this procedure. This also means do not bend, squat, or run up stairs. Slow walking and going up a flight of stairs is okay. Only take medicines for pain, fever or discomfort as directed by your health care provider. SEEK MEDICAL CARE IF: You have bleeding from the site that results in more than a small spot of blood. You have increased bruising You have redness, swelling, discharge or increasing pain at the angiogram site. You have a fever or chills. An important fever is an oral temperature above 101.5?? F (38.6?? C). You are nauseous or vomit. SEEK IMMEDIATE MEDICAL CARE IF: You become dizzy or faint. You develop a rash. You have chest pain, difficulty breathing, feel short of breath or feel faint. You have bleeding or swelling larger than a walnut at the insertion site If there is heavy bleeding from the site, hold pressure and call [phone]. We value your decision to have [facility] Vascular & Interventional Radiology as part of your care team. Our team is focused on providing you with the highest quality of care. Thank you for giving us the opportunity to care for you or your family member at this time. If you have any questions or concerns that are related to your procedure or your care with [facility] Vascular & Interventional Radiology, please call [phone] ([phone]). If you have any questions of concerns regarding your care with other departments, please call the main hospital line [phone] to be directed to your physician. Procedural Sedation, Care After Refer to this sheet in the next 24 hours. These instructions provide you with information on caringfor yourself after your procedure. Your caregiver may also give you more specific instructions. Your treatment has been planned according to current medical practices, but problems sometimes occur. Call your caregiver if you have any problems or questions after your procedure. WHAT IS PROCEDURAL SEDATION: This type of sedation induces an altered level of consciousness that minimizes pain and discomfort through the use of pain relievers and sedatives. Patients who receive procedural sedation usually are able to speak and respond to verbal cues throughout the procedure. A brief period of amnesia may erase any memory of the procedure. HOME CARE INSTRUCTIONS: Do not participate in any activities that require you to be alert or coordinated. Do not: Drive Swim Ride a bicycle Operate heavy machinery Cook Use power tools Climb ladders Work at heights Take a bath Do not drink alcohol Do not make any important decisions or sign legal documents. Stay with an adult The first meal following your procedure should be light and small. Avoid solid foods if you feel sick to your stomach (nauseous) or if you throw up (vomit). Drink enough fluids to keep your urine clear or pale yellow. Only take your usual medicines or new medicines if your caregiver approves them. Only take [id number]-aqonpye or prescription medicines for pain, discomfort, or fever as directed by your caregiver. Keep all follow-up appointments as directed by your caregiver. SEEK IMMEDIATE MEDICAL CARE IF: You are not feeling normal or behaving normally after 24 hours. You have persistent nausea and vomiting. You are unable to drink fluids or eat food. You have difficulty urinating. You have difficulty waking or cannot be woken up. You develop a rash. You have difficulty breathing or develop chest pain. documented in this encounter Medications at Time [...] with breakfast. 30 tablet 2 02/08/20 23 clopidogreL (PLAVIX) 75 mg tablet Take 1 tablet (75 mg total) by mouth daily. 30 tablet 2 08/23/19 23 cycloSPORINE modified 25 MG capsule Take 4 capsules (100 mg total) by mouth 2 times a day. 720 capsule 1 08/24/2022 1:59 PM EST 2 11/12/19 23 fenofibrate micronized (LOFIBRA) 134 MG capsule Take 1 capsule (134 mg total) by mouth every morning before breakfast. 11/09/19 23 ferrous sulfate 325 (65 FE) MG [...] 8 hours. 120 tablet 0 11/09/19 24 isosorbide dinitrate (ISORDIL) 10 MG tablet Take by mouth daily. 2 08/23/19 23 lisinopriL (PRINIVIL) 40 MG tablet Take 1 tablet (40 mg total) by mouth daily. 30 tablet 5 2 02/08/20 23 magnesium oxide (MAG-OX) 400 mg tablet Take 1 tablet (400 mg total) by mouth 2 times a day. 60 tablet 5 05/09/2022 3:28 PM EDT 2 08/23/19 23 mycophenolate (CELLCEPT) 250 mg capsule Take 1 capsule (250 mg total) by mouth 2 times a day. 180 capsule 1 05/24/2022 10:07 AM EDT 2 08/23/19 ondansetron (ZOFRAN-ODT) 4 MG disintegrating tablet Take 1 tablet (4 mg total) by mouth every 8 hours as needed. 8 04/28/20 24 proMETHazine (PHENERGAN) 12.5 MG tablet Take 1 [...] 02/08/20 23 documented as of this encounter Progress Notes * Vera Almanzar RN - 07/05/2022 3:30 PM EST Patient handoff received from JANA Rodríguez. Patient is A&O X4. Assessment as documented, Vital signs as documented. Patient tolerates PO intake. No apparent sedation related complications. Patient has indicated a level of pain as 0 on 0- 10 scale. No bleeding, tenderness, or hematoma at the procedural site. Site dressing is clean, dry, occlusive, and intact. Pt oriented to room and given call light. Bed in lowest position and locked. Procedural site checks performed per policy. Pt set for discharge to home at 1545 per . Pt discharge instructions given to patient and caregiver with acknowledgment of understanding. Vera Almanzar documented in this encounter H&P Notes * Rodger Webster, - 07/04/2022 6:12 PM EST Interventional Radiology Pre-Procedure History and Physical Date: 07/05/2022 Patient: Aiden Stauffer Jr. : 1975 Primary Care Provider: Edgar Fournier MD Requesting Provider: Maru Camp Reason for Consult: Fistulagram and indicated intervention HPI: Aiden Stauffer Jr. is a 47 y.o. male presenting to Interventional Radiology for fistulagram and possible intervention. Patient has ESRD s/p LUE fistula (and liver transplant) placed 2017. Last intervention was 06/03/2020, where no stenosis or thrombus was identified. Patient reports that he suspects there is an issue with fistula, however there have been no issues with dialysis. COVID-19 Status: SARS-CoV-2 Date Value Ref Range Status 05/01/2022 Not [...] Test results have been sent to the [facility] in accordance with state requirements. For a fact sheet for healthcare providers, see https://www.fda.gov/media/196069/download. For a fact sheet for patients, see https://www.fda.gov/media/246891/download. History: Past Medical History: Diagnosis Date ??? Acute [...] ??? ABDOMINAL SURGERY ??? BACK SURGERY 04/2020 [facility] ??? COLONOSCOPY N/A 03/23/2022 Procedure: COLONOSCOPY WITH BIOPSY; Surgeon: Roxann Morrow MD; Location: ENDOSCOPY; Service: Gastroenterology; Laterality: N/A; ??? CREATION AV FISTULA ??? ESOPHAGOGASTRODUODENOSCOPY N/A 07/24/2019 Procedure: EGD WITH BIOPSY; Surgeon: Arnold Ordoñez MD; Location: ENDOSCOPY; Service: Gastroenterology; Laterality: [...] ??? ESOPHAGOGASTRODUODENOSCOPY N/A 05/18/2022 Procedure: EGD; Surgeon: Arnold Ordoñez MD; Location: ENDOSCOPY; Service: Gastroenterology; Laterality: [...] 04/2017 ??? TYMPANOSTOMY TUBE PLACEMENT 07/2020 Family History Problem Relation Age of Onset ??? Asthma Mother ??? Kidney disease Mother ??? Diabetes Mother ??? Alcohol abuse Father ??? Esophageal Cancer Father ??? Heart failure Sister ??? Diabetes Sister ??? Liver disease Sister ??? Alcohol abuse Sister ??? Anesthesia problems Neg Hx Social Hx: Social History Tobacco Use Smoking Status Never Smokeless Tobacco Never Social History Substance and Sexual Activity Drug Use Never Social History Substance and Sexual Activity Alcohol Use Never Allergies: Allergies Allergen Reactions ??? Tacrolimus Other (See Comments) Anxious feeling and muscle jerking. TOLERATED ENVARSUS BETTER THAN PROGRAF. ??? Codeine Sulfate Hyper ??? Codeine Other (See Comments) Becomes hyper Home Medications: Prior to Admission medications Medication ALPRAZolam (XANAX) 0.5 MG tablet aspirin 81 MG chewable tablet calcium acetate,phosphat bind, (PHOSLO) 667 mg capsule carBAMazepine (TEGRETOL) 200 mg tablet carvediloL (COREG) 25 MG tablet cholecalciferol, vitamin D3, 1,250 mcg (50,000 unit) capsule cinacalcet (SENSIPAR) 30 MG tablet clopidogreL (PLAVIX) 75 mg tablet cycloSPORINE modified (CYCLOSPORINE MODIFIED) 25 MG capsule doxazosin (CARDURA) 8 MG tablet entecavir (BARACLUDE) 0.5 MG tablet fenofibrate micronized (LOFIBRA) 134 MG capsule ferrous sulfate 325 (65 FE) MG tablet folic acid (FOLVITE) 1 MG tablet gabapentin (NEURONTIN) 100 MG capsule HUMULIN N NPH INSULIN KWIKPEN 100 unit/mL (3 mL) InPn hydrALAZINE (APRESOLINE) 100 MG tablet isosorbide dinitrate (ISORDIL) 10 MG tablet lisinopriL (PRINIVIL) 40 MG tablet magnesium oxide (MAG-OX) 400 mg tablet methocarbamoL (ROBAXIN) 500 MG tablet montelukast (SINGULAIR) 10 mg tablet mycophenolate (CELLCEPT) 250 mg capsule NIFEdipine (PROCARDIA-XL) 90 MG (OSM) 24 hr tablet ondansetron (ZOFRAN-ODT) 4 MG disintegrating tablet pantoprazole (PROTONIX) 40 MG tablet polyethylene glycol (MIRALAX) 17 gram packet proMETHazine (PHENERGAN) 12.5 MG tablet sevelamer carbonate (RENVELA) 800 mg tablet spironolactone (ALDACTONE) 25 MG tablet testosterone cypionate (DEPOTESTOTERONE CYPIONATE) 200 mg/mL injection VASCEPA 1 gram Cap zolpidem (AMBIEN) 10 mg tablet ROS: Negative General: Denies fever, chills or [...] Psychiatric: Denies hallucinations and memory loss Vitals: There were no vitals filed for this visit. PE: Gen: Awake, alert, no apparent distress, as stated age HEENT: Normocephalic, atraumatic, EOMI, mucous membranes pink and moist Neck: Supple, symmetrical, trachea midline and mobile Chest: Clear bilaterally, respirations unlabored CVS: RRR ABD: Soft, non-tender, nml bowel sounds : deferred EXT: Warm and well perfused, LUE fistula NEURO: No focal deficits, cranial nerves II-XII grossly intact PSYCH: Appropriate affect Labs: Recent Labs 05/18/22 1446 06/21/22 1552 06/23/22 0637 WBC 4.2 3.8 3.7* HGB 9.1* 10.1* 9.8* HCT 27.9* 30.5* 29.8* MCV 96.4 99.0 98.5 PLT 241 215 217 Recent Labs 05/02/22 0449 06/21/22 1552 06/23/22 0637 INR 1.3* 1.1 1.1 PROTIME 16.1* 15.0 14.8 Recent Labs 05/18/22 1446 06/21/22 1552 06/23/22 0637 CREATININE 5.29* 9.44* 8.54* Recent Labs 03/16/22 2334 04/07/22 1113 05/01/22 1940 ALT 8 8 6* AST 12* 11* 11* ALKPHOS 74 85 66 BILITOT 0.6 0.6 0.7 Imaging: No results found. I personally reviewed the relevant findings from the above imaging results. Pre-Sedation Evaluation: Mallampati: III ASA Score: III - Moderate systematic disease with functional limitations Sedation-Specific History Concerns: Sleep apnea or use of CPAP/bilevel This patient was re-evaluated immediately prior to sedation administration. Medical Decision Making Assessment: Aiden Stauffer Jr. is a 47 y.o. male presenting to Interventional Radiology for fistulagram and possible intervention. COVID-19 Status: SARS-CoV-2 Date Value Ref Range Status 05/01/2022 Not [...] Test results have been sent to the [facility] in accordance with state requirements. For a fact sheet for healthcare providers, see https://www.fda.gov/media/302823/download. For a fact sheet for patients, see https://www.fda.gov/media/993137/download. Plan: 1. Will proceed with fistulagram and possible intervention. 2.Moderate Sedation/Intravenous Fentanyl & Versed The procedure has been explained. Post-procedure care instructions & education have been provided. All questions were answered. Consent with alternatives to the procedure, risks, and benefits have been explained and discussed with the patient/patient's family and signed informed consent obtained. Patient/patient's family agreeable with plan of care. Consent obtained and placed in chart RODGER WEBSTER DO Vascular & Interventional Radiology 07/05/2022, 11:18 AM [facility]: [phone] documented in this encounter Procedure Notes * Arnold Aleman MD - 07/05/2022 12:00 PM EST Vascular & Interventional Radiology Brief Op Note Date: 07/05/2022 Patient: Aiden Stauffer Jr. : 1975 IR Procedure(s) Performed: Operators: ARNOLD ALEMAN MD, VIR fellow Eneida Frias MD, PhD, VIR fellow Pre-operative diagnosis: Slow arterial flow Post-operative diagnosis: Same Intra-procedural Medications: Medications Medication Event Details Admin User Admin Time fentaNYL (SUBLIMAZE) injection Medication Given Dose: 50 mcg; Route: Intravenous Anne Martinez RN 07/05/2022 2:32 PM midazolam (PF) (VERSED) injection Medication Given Dose: 1 mg; Route: Intravenous Anne Martinez RN07/05/2022 2:32 PM lidocaine 10 mg/mL (1 %) injection Medication Given Dose: 10 mL; Route: Infiltration Arnold Aleman MD 07/05/2022 2:37 PM Findings: Palpable thrill and pulsatile flow over the left arm hemodialysis fistula initially. US evaluation showed patent AV anastomosis. 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 Homeostasis achieved by Slip Knot Specimens removed: None Estimated Blood Loss: Minimal (less than 15mL) Complications: None Access site(s): LUE AVF Post procedure care/monitoring: Remove slip knot in the post-procedure area. Recommendations/Follow-up: Will refer patient to the vascular access conference Please refer to full dictated Interventional Radiology report for details of findings/procedures, which can be located in EPIC Procedures (or EPIC Imaging) Tabs. ARNOLD ALEMAN MD Vascular & Interventional Radiology 07/05/2022,3:23 PM [facility]: [phone] documented in this encounter Plan of Treatment Upcoming Encounters Date Type Department Care Team (Late st Contact Info) Description 07/15/2024 9:00 AM EST Hospital Encounter [facility] Interventional Radiology [address] [place] [address] Herve Carrillo MD [address] [facility] [address] [place] [address] documented as of this encounter Procedures Procedure Name Priority Date/Time Associated Diagnosis Comments IR ANGIO DIALYSIS CIRCUIT Routine 07/05/2022 3:37 PM EST Encounter regarding vascular access for dialysis for end-stage renal disease ([facility]) POC GLU MONITORING DEVICE Routine 07/05/2022 11:11 AM EST documented in this encounter Results * IR Angio Dialysis Circuit (07/05/2022 3:37 PM EST) Anatomical Region Laterality Modality X-Ray Angiograph y 07/05/2022 2:07 PM EST Impressions 07/10/2022 9:35 PM EST IMPRESSION: Successful hemodialysis fistulogram with findings of complex venous outflow anatomy (see Findings above). Plan: 1. ??The fistula may be used at dialysis, noting that he has been able to complete sessions of dialysis. 2. ??Discuss case with transplant surgery and/or at Vascular access conference. His radiocephalic fistula has complex venous outflow anatomy which may responsible for the concerns regarding flow rates at hemodialysis. Visibly, the flow is not brisk through the forearm portion of the fistula and the cephalic vein and antecubital vein have grown progressively more aneurysmal and tortuous over time (since 2019). I favor this is related to the number and angulation of turns in his fistula's collateral dependent outflow route via the brachial veins. Because of these angulations, the outflow cannot readily be angioplastied in the fashion typical of a hemodialysis fistula. Given that these findings may be progressive over time, I would favor discussion of his option with our surgical colleagues. He reports he does not have a surgeon currently. 3. ??For continuity of care, please preferentially schedule future Interventional Radiology appointments with Dr. Frias, taking into account patient and provider availability. I have personally reviewed the images and I agree with this report. Report Verified by: Eneida Frias MD, PhD at 07/10/2022 9:35 PM EST Narrative 07/10/2022 9:35 PM EST Procedure: Hemodialysis fistulogram Date performed: July 05, 2022 Staff: Eneida Frias MD, PhD Fellow: Arnold Aleman MD Medical student: Zaynab Steele Indication: History of liver transplant (2018) and end stage renal disease on hemodialysis via a left forearm radiocephalic arteriovenous fistula, who reports possible decrease flows via the arterial position dialysis needle. He reports he is still able to receive full dialysis sessions. Contrast: 60 mL Omnipaque iv/ia Medications: Versed 1 mg iv, fentanyl 50 mcg iv. Moderate sedation was administered under the attending physician's direction and continuous monitoring by a trained nurse specialist who was independent from those actually performing the procedure. Total monitored sedation time was 36 minutes. Procedure: The procedure was performed in a vascular and interventional radiology (VIR) suite following informed consent and a time out. The left arm was prepped and draped in sterile fashion. ?? Ultrasound evaluation of the fistula was performed and an image was saved. Using real-time ultrasound guidance, access to the fistula was achieved directed towards the central veins using a micropuncture set. ??Diagnostic fistulography from the perianastomotic inflow to the right atrium was performed. Of note, multiple projections were taken in the region of the antecubital fossa due to the tortuous venous anatomy. Reflux fistulography of the arterial anastomosis was not performed given the aneurysmal size of the fistula and due to patent appearance on ultrasound examination. Due to the complex anatomic outflow of the fistula (described in the Findings section) not readily amenable to treatment, the decision was made to conclude the study. The micropuncture sheath was then removed and hemostasis was obtained using a SlipNot This procedure was performed under the personal supervision of Dr. Frias, who was present for the entire procedure. Fluoroscopy time: 0.7 minutes Complications: None Findings: 1. ??Ultrasound demonstrates patent arterial anastomosis and aneurysmal dilation of the forearm portion of the fistula. 2. ??The diagnostic fistulogram demonstrates the following. The cannulation zone (forearm cephalic vein) is patent, noting increased aneurysmal dilatation and tortuosity relative to the prior study (06/02/2020). Qualitatively, the flow through this portion appears slower than expected for an aneurysmal fistula. The venous outflow anatomy is complex and tortuous, and is described as follows. The forearm cephalic vein does not continue centrally via the upper arm cephalic vein; the upper arm cephalic vein was relatively diminutive on the prior study and is not visualized on today's study. Instead, the venous outflow occurs via a aneurysmal antecubital vein which collateralizes to non-aneurysmal brachial veins. The path of flow is tortuous given that the there are greater than 90 degree angulations of the transition from the forearm cephalic vein to the antecubital vein and the transition from the antecubital vein to the brachial veins. The caliber of the brachial venous outflow is smaller relative to the aneurysmal forearm cephalic vein. The brachial venous outflow is patent. The central veins are patent, with note made of mild anatomic compression as the brachiocephalic vein travels into the thoracic outlet. The superior vena cava is patent. Procedure Note Eneida Frias MD, PhD - 07/10/2022 Procedure: Hemodialysis fistulogram Date performed: July 05, 2022 Staff: Eneida Frias MD, PhD Fellow: Arnold Aleman MD Medical student: Zaynab Steele Indication: History of liver transplant (2018) and end stage renal diseaseon hemodialysis via a left forearm radiocephalic arteriovenous fistula,who reports possible decrease flows via the arterial position dialysisneedle. He reports he is still able to receive full dialysis sessions. Contrast: 60 mL Omnipaque iv/ia Medications: Versed 1 mg iv, fentanyl 50 mcg iv. Moderate sedation wasadministered under the attending physician's direction and continuousmonitoring by a trained nurse specialist who was independent from thoseactually performing the procedure. Total monitored sedation time was 36minutes. Procedure: The procedure was performed in a vascular and interventional radiology(VIR) suite following informed consent and a time out. The left arm wasprepped and draped in sterile fashion. Ultrasound evaluation of the fistula was performed and an image was saved.Using real-time ultrasound guidance, access to the fistula was achieveddirected towards the central veins using a micropuncture set. Diagnosticfistulography from the perianastomotic inflow to the right atrium wasperformed. Of note, multiple projections were taken in the region of theantecubital fossa due to the tortuous venous anatomy. Reflux fistulographyof the arterial anastomosis was not performed given the aneurysmal size ofthe fistula and due to patent appearance on ultrasound examination. Due tothe complex anatomic outflow of the fistula (described in the Findingssection) not readily amenable to treatment, the decision was made toconclude the study. The micropuncture sheath was then removed andhemostasis was obtained using a SlipNot This procedure was performed under the personal supervision of Dr. Frias,who was present for the entire procedure. Fluoroscopy time: 0.7 minutes Complications: None Findings: 1. Ultrasound demonstrates patent arterial anastomosis and aneurysmaldilation of the forearm portion of the fistula. 2. The diagnostic fistulogram demonstrates the following. The cannulationzone (forearm cephalic vein) is patent, noting increased aneurysmaldilatation and tortuosity relative to the prior study (06/02/2020).Qualitatively, the flow through this portion appears slower than expectedfor an aneurysmal fistula. The venous outflow anatomy is complex andtortuous, and is described as follows. The forearm cephalic vein does notcontinue centrally via the upper arm cephalic vein; the upper arm cephalicvein was relatively diminutive on the prior study and is not visualized ontoday's study. Instead, the venous outflow occurs via a aneurysmalantecubital vein which collateralizes to non-aneurysmal brachial veins.The path of flow is tortuous given that the there are greater than 90degree angulations of the transition from the forearm cephalic vein to theantecubital vein and the transition from the antecubital vein to thebrachial veins. The caliber of the brachial venous outflow is smallerrelative to the aneurysmal forearm cephalic vein. The brachial venousoutflow is patent. The central veins are patent, with note made of mildanatomic compression as the brachiocephalic vein travels into the thoracicoutlet. The superior vena cava is patent. IMPRESSION: Successful hemodialysis fistulogram with findings of complex venousoutflow anatomy (see Findings above). Plan: 1. The fistula may be used at dialysis, noting that he has been able tocomplete sessions of dialysis. 2. Discuss case with transplant surgery and/or at Vascular accessconference. His radiocephalic fistula has complex venous outflow anatomywhich may responsible for the concerns regarding flow rates athemodialysis. Visibly, the flow is not brisk through the forearm portionof the fistula and the cephalic vein and antecubital vein have grownprogressively more aneurysmal and tortuous over time (since 2019). I favorthis is related to the number and angulation of turns in his fistula'scollateral dependent outflow route via the brachial veins. Because ofthese angulations, the outflow cannot readily be angioplastied in thefashion typical of a hemodialysis fistula. Given that these findings maybe progressive over time, I would favor discussion of his option with oursurgical colleagues. He reports he does not have a surgeon currently. 3. For continuity of care, please preferentially schedule futureInterventional Radiology appointments with Dr. Frias, taking into accountpatient and provider availability. I have personally reviewed the images and I agree with this report. Report Verified by: Eneida Frias MD, PhD at 07/10/2022 9:35 PM EST Maru Camp CNP IMG IR ORDERABLES Final Result * (ABNORMAL) POC Glucose Monitoring Device (07/05/2022 11:11 AM EST) Pathologist [facility] POC Glucose Monitoring Device 111(H) 70 - 100 mg/dL 07/05/2022 11:11 AM EST [facility] Blood 07/05/2022 11:1 1 AM EST 07/05/2022 11:11 AM EST Maru Camp CNP POINT OF CARE TEST ORDERABLES Final Result [facility] [address] [place], [place] [address] documented in this encounter Visit Diagnoses Diagnosis Encounter regarding vascular access for dialysis for end-stage renal disease (CMS-HCC) documented in this encounter Administered Medications Inactive Administered Medications - up to 3 most recent administrations Medication Order MAR Action Action Date Dose Rate Site fentaNYL (SUBLIMAZE) injection Intravenous, Intra-op PRN, Starting on Mon07/05/22 at 1432, Intra-procedure(IR) Given 07/05/2022 2:32 PM EST 50 mcg lidocaine 10 mg/mL (1 %) injection Intra-op PRN, Starting on Mon07/05/22 at 1437, Intra-procedure(IR) Given 07/05/2022 2:37 PM EST 10 mLs midazolam (PF) (VERSED) injection Intravenous, Intra-op PRN, Starting on Mon07/05/22 at 1432, Intra-procedure(IR) Given 07/05/2022 2:32 PM EST 1 mg sodium chloride 0.9 % infusion 50 mL/hr, Intravenous, Continuous, Starting on Mon07/05/22 at 1100, Pre-procedure(IR) New Bag 07/05/2022 11:19 AM EST 50 mL/hr 50 mL/hr sodium chloride 0.9% flush 10 mL 10 mL, Intravenous, Every Shift, First dose on Mon07/05/22 at 1300, Pre-procedure(IR) Given 07/05/2022 11:20 AM EST 10 mLs documented in this encounter Additional Health Concerns Assessment Noted Time PHQ-9 Depression Total Score: 0 12/06/19 18 3:00 PM EDT documented as of this encounter Care Teams Inspection Manager Relationship Specialty Start Date End Date Edgar Fournier MD [address] [place] [phone] PCP - General 12/22/21 Maile Valles, JANA Txp Post Coordinator Transplant Hepatology 11/07/17 Arnold Ordoñez MD [address] [place] [phone] Consulting Physician Transplant Hepatology 01/05/18 Estephania Sharif, DarrianD Pharmacist Pharmacist 11/11/19 documented as of this encounter
--- OUTSIDE RECORDS SUMMARY | 2024-07-12 12:27 | XMS_ITS | Encounter Summary ---
Author Organization [facility] Address [address] [place] [address] Care Team Providers Care Master Fire Control Technician Name Role Phone Maile Valles RN Unavailable Unavail able Jack Ordoñez MD Unavailable [phone] Estephania Sharif PharmD Unavailable Christine Edgar Tolentino MD Primary Care Provider [phone] Source Comments This information has been disclosed [...] release of HIV test results or diagnoses. [id number] Reason for Visit * Reason Comments Liver Transplant Follow-up Encounter Details Date Type Department Care Team (Late st Contact Info) Description 11/10/2022 1:15 PM EDT Office Visit [facility] Liver Transplant at [facility] [address] [facility] [address] [place] [address] Jack Ordoñez MD [address] [place] [address] Hepatitis B carrier ([facility]) (Primary Dx); Liver transplanted ([facility]); Immunosuppression for liver transplant ([facility] Dx) Social History Tobacco Use Types [...] Sign Reading Time Taken Comments Blood Pressure 151/79 11/10/2022 1:30 PM EDT Pulse 71 11/10/2022 1:30 PM EDT Temperature 36.6 ??C (97.9 ??F) 11/10/2022 1:30 PM ED T Respiratory Rate 18 11/10/2022 1:30 PM EDT Oxygen Saturation 94% 11/10/2022 1:30 PM EDT Inhaled Oxygen Concentration 94% 11/10/2022 1 :30 PM EDT Weight 138.8 kg (306 lb) 11/10/2022 1:30 PM EDT Height 175.3 cm (5' 9 ) 11/10/2022 1:30 PM EDT Body Mass Index 45.19 11/10/2022 1:30 PM EDT documented in this encounter Patient Instructions * Patient Instructions* Jack Ordoñez MD - 11/10/2022 1:15 PM EDT Plan: 1. Continue cyclosporine 100 mg [...] 11. Continue Miralax to twice daily. 12. Will assist with appointment with vascular access. 12. RTC in 1 year documented in this encounter Progress Notes * Jack Ordoñez MD - 11/10/2022 1:15 PM EDT Subjective: Aiden Stauffer Jr. is a 47 y.o. 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 The patient was last seen in July2021. He received a [facility] high risk donor, who was HBV ALEXANDRA [...] to assess his AV graft / fistula. Asking for assistance with fistula. The following portions of the patient's [...] laboratory results were reviewed. Assessment & Plan: 47 year old male who is s/p OLT [...] weight loss. Continue Miralax to twice daily. Will assist withappointment with vascular access. RTC in 1 year Plan: 1. Continue [...] 11. Continue Miralax to twice daily. 12. Will assist with appointment with vascular access. 12. RTC in 1 year This note [...] endoscopic procedures. I spoke with the RN director of medicare today in regardsto this patient. Finally, I have reviewed independently any interval liver pathology. Spent over 40minutes on the care of this patient today. * Maile Valles RN - 11/10/2022 1:15 PM EDT After visit summary including patient instructions reviewed with patient. Medication list reviewed and updated. Checked with patient to see if prescription refills and/or lab orders were needed. Updated preferred pharmacy and preferred lab information in patient demographics. Care coordinated with o ther team members and other medical providers as needed. Patient presents with the following needs: None verbalized at this time. documented in this encounter Plan of Treatment Upcoming Encounters Date Type Department Care Team (Late st Contact Info) Description 07/15/2024 9:00 AM [facility] Hospital Encounter [facility] Interventional Radiology [address] [place] [phone] Herve Carrillo MD [address] [facility] [address] [facility] [place] [address] documented as of this encounter Visit Diagnoses Diagnosis Hepatitis B carrier ([facility])- Primary Hepatitis B carrier Liver transplanted ([facility]) Liver replaced by transplant Immunosuppression for liver transplant ([facility] Dx) documented in this encounter Additional Health Concerns Assessment Noted Time PHQ-9 Depression Total Score: 0 12/06/19 18 3:00 PM EDT documented as of this encounter Care Teams Master Fire Control Technician Relationship Specialty Start Date End Date Edgar Fournier MD [address] [place] [address] JASON Downs [phone] PCP - General 12/22/21 Maile Valles, RN Txp Post Coordinator Transplant Hepatology 11/07/17 Jack Ordoñez MD [address] [place] [phone] Consulting Physician Transplant Hepatology 01/05/18 Estephania Sharif, PharmD Pharmacist Pharmacist 11/11/19 documented as of this encounter
--- OUTSIDE RECORDS SUMMARY | 2024-07-12 12:27 | XMS_ITS | Encounter Summary ---
Author Organization [facility] Address [address] [place] [address] Care Team Providers Care Shiftman Name Role Phone Maile Valles RN Unavailable Unavail able Jack Ordoñez MD Unavailable [phone] Estephania Sharif PharmD Unavailable Christine Edgar Tolentino MD Primary Care Provider [phone] Source Comments This information has been disclosed [...] release of HIV test results or diagnoses. [id number] Health Encounter Details Date Type Department Care Team (Late st Contact Info) Description 06/28/2022 Orders Only [facility] Advanced Heart Failure at [facility] [address] [facility] [address] [place] [address] Humza Riley CNP Heart failure, unspecified HF chronicity, unspecified heart failure type ([facility]) (Primary Dx) Social History Tobacco Use [...] AM EST documented as of this encounter Progress Notes * Humza Riley CNP - 06/28/2022 2:21 PM EST Spoke to pt and his dialysis center. May be gaining too much weight in between sessions. Had some issues with cramping last Monday, pt states he had to stop session early yesterday. Going for extra session this . Cmems pressures trending up. Pt thinks cramping is related to starting plavix. Will check CBC, fecal occult blood, LFT. Pt to message tomorrow and report how he is doing at dialysis session. Messaged other sales support worker to send lab orders to [facility] per pt request. Educated on sodium and water restriction. documented in this encounter Plan of Treatment Upcoming Encounters Date Type Department Care Team (Late st Contact Info) Description 07/15/2024 9:00 AM EST Hospital Encounter [facility] Interventional Radiology [address] [place] [phone] Herve Carrillo MD [address] [place] [phone] Scheduled Orders Name Type Priority Associated Diagnoses Orde r Schedule POCT - FECAL OCCULT BLOOD TEST Point of Care Testing Routine Heart failure, unspecified HF chronicity, unspecified heart failure type (CMS-HCC) Expected: 06/29/2022 (Approximate), Expires: 06/28/2023 documented as of this encounter Results * Hepatic Function Panel (11/10/2022 1:12 PM EDT) Total Bilirubin 0.5 0.0 - 1.5 mg/dL 11/10/2022 2:12 PM EDT [facility] Bilirubin, Direct 0.14 0.00 - 0.40 mg/dL 11/10/2022 2:12 PM EDT [facility] AST 13 13 - 39 U/L 11/10/2022 2:12 PM EDT [facility] ALT 12 7 - 52 U/L 11/10/2022 2:12 PM EDT [facility] Alkaline Phosphatase 47 36 - 125 U/L 11/10/2022 2:12 PM EDT [facility] Total Protein 7.0 6.4 - 8.9 g/dL 11/10/2022 2:12 PM EDT [facility] Albumin 4.4 3.5 - 5.7 g/dL 11/10/2022 2:12 PM EDT [facility] Bilirubin, Indirect 0.36 0.00 - 1.10 mg/dL 11/10/2022 2:12 PM EDT [facility] Plasma 11/10/2022 1:12 PM EDT 11/10/2022 1:40 PM EDT us Humza Riley [facility] BLOOD ORDERABLES Final Resul t [facility] [address] [place] [address], [facility] * (ABNORMAL) CBC (11/10/2022 1:12 PM EDT) WBC 3.4(L) 3.8 - 10.8 10E3/uL 11/10/2022 1:49 PM EDT [facility] RBC 3.62(L) 4.20 - 5.80 10E6/uL 11/10/2022 1:49 PM EDT [facility] Hemoglobin 12.4(L) 13.2 - 17.1 g/dL 11/10/2022 1:49 PM EDT [facility] Hematocrit 37.2(L) 38.5 - 50.0 % 11/10/2022 1:49 PM EDT [facility] MCV 102.9(H) 80.0 - 100.0 fL 11/10/2022 1:49 PM EDT [facility] MCH 34.2(H) 27.0 - 33.0 pg 11/10/2022 1:49 PM EDT [facility] MCHC 33.2 32.0 - 36.0 g/dL 11/10/2022 1:49 PM EDT [facility] RDW 15.5(H) 11.0 - 15.0 % 11/10/2022 1:49 PM EDT [facility] Platelets 189 140 - 400 10E3/uL 11/10/2022 1:49 PM EDT [facility] MPV 7.5 7.5 - 11.5 fL 11/10/2022 1:49 PM EDT [facility] Whole Blood 11/10/2022 1:12 PM EDT 11/10/2022 1:41 PM EDT Humza Riley [facility] BLOOD ORDERABLES Final Resul t Performing Organization Address City/State/[facility] Co de Phone Number [facility] [address] documented in this encounter Visit Diagnoses Diagnosis Heart failure, unspecified HF chronicity, unspecified heart failure type (CMS-HCC)- Primary documented in this encounter Additional Health Concerns Assessment Noted Time PHQ-9 Depression Total Score: 0 12/06/19 18 3:00 PM EDT documented as of this encounter Care Teams Shiftman Relationship Specialty Start Date End Date Edgar Fournier MD [address] [place] [address] [place] [phone] PCP - General 12/22/21 Maile Valles, JANA Txp Post Coordinator Transplant Hepatology 11/07/17 Jack Ordoñez MD [address] [place] [phone] Consulting Physician Transplant Hepatology 01/05/18 Estephania Sharif, PharmD Pharmacist Pharmacist 11/11/19 documented as of this encounter
--- OUTSIDE RECORDS SUMMARY | 2024-07-12 12:27 | XMS_ITS | Encounter Summary ---
Author Organization [facility] Address [address] [place] [address] Care Team Providers Care Chemical Process Engineer Name Role Phone Maile Valles RN Unavailable Unavail able Jack Ordoñez MD Unavailable [phone] Estephania Sharif PharmD Unavailable Christine Edgar Tolentino MD Primary Care Provider [phone] Source Comments This information has been disclosed [...] release of HIV test results or diagnoses. [id number] Health Encounter Details Date Type Department Care Team (Latest Contact Info) Description 07/22/2022 3:30 PM EST Procedure visit [facility] Advanced Heart Failure at [facility] [address] [facility] [address] [place] [address] Fermín Schulte MD Whitton, Anita, CNP Heart failure, unspecified HF chronicity, unspecified heart failure type ([facility]) (Primary Dx) Social History Tobacco Use [...] of this encounter Progress Notes * Diana Reid CNP - 07/22/2022 3:30 PM EST 06/23/22 RA - 22 RV - 60/20 PA - 55/32 PCWP - 25 PAD - 28 Cardiomems At the time of baseline euvolemia, PA diastolic 28 with a PCWP of 25. PA diastolic range from 21to35 since the previous transmission. did need adjustment of medical therapy. Diuretics on dialysis 07-21-2022, 09:26 PM 52 mmHg 27 mmHg 38 mmHg 8 88 bpm 07-15-2022, 10:34 PM 45 mmHg 21 mmHg 30 mmHg 0 81 bpm 07-14-2022, 06:03 PM 47 mmHg 24 mmHg 34 mmHg 4 83 bpm 07-10-2022, 04:33 PM 51 mmHg 30 mmHg 38 mmHg 8 72 bpm 07-07-2022, 08:54 PM 58 mmHg 31 mmHg 43 mmHg 13 84 bpm 07-03-2022, 07:39 PM 53 mmHg 29 mmHg 39 mmHg 9 79 bpm 06-30-2022, 03:05 PM 68 mmHg 64 mmHg 67 mmHg 37 51 bpm Ignored 06-29-2022, 07:48 PM 47 mmHg 24 mmHg 33 mmHg 3 80 bpm 06-27-2022, 07:52 PM 58 mmHg 35 mmHg 44 mmHg 14 80 bpm 06-25-2022, 03:34 PM 50 mmHg 27 mmHg 37 mmHg 7 73 bpm 06-24-2022, 09:26 PM 51 mmHg 27 mmHg 37 mmHg 7 76 bpm 06-23-2022, 08:55 AM 49 mmHg 28 mmHg 37 mmHg n/a 76 bpm 06-23-2022, 08:53 AM 55 mmHg 30 mmHg 40 mmHg n/a 73 bpm documented in this encounter Plan of Treatment Upcoming Encounters Date Type Department Care Team (Late st Contact Info) Description 07/15/2024 9:00 AM EST Hospital Encounter [facility] Interventional Radiology [address] [place] [phone] Herve Carrillo MD [address] [facility] [address] [facility] [place] [phone] documented as of this encounter Visit Diagnoses Diagnosis Heart failure, unspecified HF chronicity, unspecified heart failure type (CMS-HCC)- Primary documented in this encounter Additional Health Concerns Assessment Noted Time PHQ-9 Depression Total Score: 0 12/06/19 18 3:00 PM EDT documented as of this encounter Care Teams Chemical Process Engineer Relationship Specialty Start Date End Date Edgar Fournier MD [address] [place] [address] [place] [phone] PCP - General 12/22/21 Maile Valles, JANA Txp Post Coordinator Transplant Hepatology 11/07/17 Jack Ordoñez MD [address] [place] [phone] Consulting Physician Transplant Hepatology 01/05/18 Estephania Sharif, DarrianD Pharmacist Pharmacist 11/11/19 documented as of this encounter
--- OUTSIDE RECORDS SUMMARY | 2024-07-12 12:27 | XMS_ITS | Encounter Summary ---
Author Organization [facility] Address [address] [place] [address] Care Team Providers Care Training Program Assistant Name Role Phone Maile Valles RN Unavailable Unavail able Jack Ordoñez MD Unavailable [phone] Estephania Sharif PharmD Unavailable Christine Edgar Tolentino MD Primary Care Provider [phone] Source Comments This information has been disclosed [...] release of HIV test results or diagnoses. [id number] Reason for Visit * Reason Comments Medication Refill Encounter Details Date Type Department Care Team (Late st Contact Info) Description 08/23/2022 Refill [facility] Liver Transplant at [facility] [address] [facility] [address] [place] [address] Jack Ordoñez MD [address] [place] [address] Social History Tobacco Use Types [...] 07/15/2024 9:00 AM EST Hospital Encounter [facility] Interventional Radiology [address] [place] [phone] Herve Carrillo MD [address] [facility] [address] [facility] [place] [address] documented as of this encounter Visit Diagnoses Not on filedocumented in this encounter Additional Health Concerns Assessment Noted Time PHQ-9 Depression Total Score: 0 12/06/19 18 3:00 PM EDT documented as of this encounter Care Teams Training Program Assistant Relationship Specialty Start Date End Date Edgar Fournier MD [address] [place] [address] [place] [address] PCP - General 12/22/21 Maile Valles, JANA Txp Post Coordinator Transplant Hepatology 11/07/17 Jack Ordoñez MD [address] [place] [phone] Consulting Physician Transplant Hepatology 01/05/18 Estephania Sharif, PharmD Pharmacist Pharmacist 11/11/19 documented as of this encounter
--- OUTSIDE RECORDS SUMMARY | 2024-07-12 12:27 | XMS_ITS | Encounter Summary ---
Author Organization [facility] Address [facility] [place] [address] Care Team Providers Care Digital Photographic Printer Name Role Phone Maile Valles RN Unavailable Unavail able Jack Ordoñez MD Unavailable [phone] Estephania Sharif PharmD Unavailable Christine Edgar Tolentino MD Primary Care Provider [phone] Source Comments This information has been disclosed [...] release of HIV test results or diagnoses. [id number] Encounter Details Date Type Department Care Team (Latest Contact Info) Description 07/05/2022 Travel Social History Tobacco Use Types Packs/Day [...] 9:00 AM EST Hospital Encounter [facility] Interventional Radiology [address] [place] [phone] Herve Carrillo MD 3130 [facility] 3[address] [place] [address] documented as of this encounter Visit Diagnoses Not on filedocumented in this encounter Additional Health Concerns Assessment Noted Time PHQ-9 Depression Total Score: 0 12/06/19 18 3:00 PM EDT documented as of this encounter Care Teams Digital Photographic Printer Relationship Specialty Start Date End Date Edgar Fournier MD [address] [place] [address] PCP - General 12/22/21 Maile Valles, JANA Txp Post Coordinator Transplant Hepatology 11/07/17 Jack Ordoñez MD [address] [place] [phone] Consulting Physician Transplant Hepatology 01/05/18 Estephania Sharif, DarrianD Pharmacist Pharmacist 11/11/19 documented as of this encounter
--- OUTSIDE RECORDS SUMMARY | 2024-07-12 12:27 | XMS_ITS | Encounter Summary ---
Author Organization [facility] Address [facility] [place] [address] Care Team Providers Care Supervisor Of Guidance And Testing Name Role Phone Maile Valles RN Unavailable Unavail able Jack Ordoñez MD Unavailable [phone] Estephania Sharif PharmD Unavailable Christine Edgar Tolentino MD Primary Care Provider [phone] Source Comments This information has been disclosed [...] release of HIV test results or diagnoses. [id number] Encounter Details Date Type Department Care Team (Latest Contact Info) Description 11/10/2022 Travel Social History Tobacco Use Types Packs/Day [...] Description 07/15/2024 9:00 AM EST Hospital Encounter [facility] Interventional Radiology [address] [place] [phone] Herve Carrillo MD 3130 [facility] 3200 [place] [address] documented as of this encounter Visit Diagnoses Not on filedocumented in this encounter Additional Health Concerns Assessment Noted Time PHQ-9 Depression Total Score: 0 12/06/19 18 3:00 PM EDT documented as of this encounter Care Teams Supervisor Of Guidance And Testing Relationship Specialty Start Date End Date Edgar Fournier MD [address] [place] [address] [place] [address] PCP - General 12/22/21 Maile Valles, RN Txp Post Coordinator Transplant Hepatology 11/07/17 Jack Ordoñez MD [address] [place] [phone] Consulting Physician Transplant Hepatology 01/05/18 Estephania Sharif, DarrianD Pharmacist Pharmacist 11/11/19 documented as of this encounter
--- OUTSIDE RECORDS SUMMARY | 2024-07-12 12:27 | XMS_ITS | Encounter Summary ---
Author Organization [facility] Address [address] [place] [address] Care Team Providers Care Engineering Programmer Name Role Phone Maile Valles RN Unavailable Unavail able Jack Ordoñez MD Unavailable [phone] Estephania Sharif PharmD Unavailable Christine Edgar Tolentino MD Primary Care Provider [phone] Source Comments This information has been disclosed [...] release of HIV test results or diagnoses. [id number] Health Encounter Details Date Type Department Care Team (Late st Contact Info) Description 09/09/2022 Telephone [facility] Advanced Heart Failure at [facility] [facility] [address] [facility] [address] [place] [address] Kimberly Camp, JANA Social History [...] Telephone Encounter - Kimberly Camp RN - 09/09/2022 3:08 PM EST Left detailed message on vm. Requested return call for worsening sx or concerns. Advised pt to makecardiomems a daily routine so elevated readings can be addressed sooner than later. Contact information provided * Telephone Encounter - Kimberly Camp RN - 09/09/2022 3:08 PM EST ----- Message from Humza Riley CNP sent at 09/09/2022 9:15 AM EST ----- Regarding: cardiomems Can we check in and see how HF symptoms are doing, his cardiomems pressures are elevated and he needs to be doing reading daily, not every few days. Ask him about fluid and sodium intake and how he is doing at dialysis as well. ----- Message ----- From: Diana Reid CNP Sent: 09/08/2022 10:51 AM EST To: Humza Riley CNP 09-06-2022, 10:35 PM 48 mmHg23 mmHg33 [id number] bpm 09-04-2022, 10:37 PM 55 mmHg29 mmHg39 [id number] bpm 09-02-2022, 11:57 PM 46 mmHg21 mmHg31 [id number] bpm 08-30-2022, 09:12 PM 46 mmHg24 mmHg32 [id number] bpm documented in this encounter Plan of Treatment Upcoming Encounters Date Type Department Care Team (Late st Contact Info) Description 07/15/2024 9:00 AM EST Hospital Encounter [facility] Interventional Radiology [address] [place] [address] Herve Carrillo MD [address] [place] [facility] [address] [place] [address] documented as of this encounter Visit Diagnoses Not on filedocumented in this encounter Additional Health Concerns Assessment Noted Time PHQ-9 Depression Total Score: 0 12/06/19 18 3:00 PM EDT documented as of this encounter Care Teams Engineering Programmer Relationship Specialty Start Date End Date Edgar Fournier MD [address] [place] [address] [place] [address] PCP - General 12/22/21 Maile Valles, JANA Txp Post Coordinator Transplant Hepatology 11/07/17 Jack Ordoñez MD [address] [place] [phone] Consulting Physician Transplant Hepatology 01/05/18 Estephania Sharif, DarrianD Pharmacist Pharmacist 11/11/19 documented as of this encounter
--- OUTSIDE RECORDS SUMMARY | 2024-07-12 12:27 | XMS_ITS | Encounter Summary ---
Author Organization [facility] Address [address] [place] [address] Care Team Providers Care Spooler Operator Name Role Phone Maile Valles RN Unavailable Unavail able Jack Ordoñez MD Unavailable [phone] Estephania Sharif PharmD Unavailable Christine Edgar Tolentino MD Primary Care Provider [phone] Source Comments This information has been disclosed [...] release of HIV test results or diagnoses. [id number] Health Encounter Details Date Type Department Care Team (Late st Contact Info) Description 11/17/2022 Telephone [facility] Advanced [facility] Failure at [place] [facility] 222 [facility] [address] [place] [address] Kimberly Camp, JANA Social History [...] Telephone Encounter - Kimberly Camp RN - 11/17/2022 8:08 AM EDT Spoke to pt and reviewed cath instructions and plan for admission. All questions answered. Instructions to mychart. CATH INSTRUCTIONS ? You have been scheduled for a right Heart Catheterization with Dr. Fermín Schulte. Please check in at 1100 a.m on November 22, 2022 in the lobby on the ground floor of the [place] [address]. You will be admitted after procedure ? Below you will find instructions for your procedure: ? Please take I/2 your scheduled Lantus (glargine) insulin the evening before. Hold all your oral diabetic and other injectable insulin the morning of the procedure. ? 1. Do not eat or drink anything [...] have someone spend the night with you. ?? If you are unable to make this appointment or have any questions, please feel free to call us at . ? Procedure:? You may be given a medication to help you relax before and during the procedure through an IV in your arm or hand. ??A local anesthetic is used to make the insertion area numb prior to inserting the catheter. ??You will be prepared for the procedure by washing the area where the catheter will be inserted. ? After the procedure you will be monitored for 3-4 hours. ??The access site will be watched and you will be checked frequently. ??Additional blood test, x-rays and an EKG may be performed. ?? Someone will need to drive home from the hospital. Your procedure will be cancelled if you do not have a ride. ??A taxi is not suitable ?? * Telephone Encounter - Kimberly Camp RN - 11/17/2022 8:06 AM EDT ----- Message from Aubrie Fisher sent at 11/16/2022 7:34 AM EDT ----- Regarding: RE: RHC with admission Would 1 pm with a 11 am arrival work? Thanks Aubrie ----- Message ----- From: Kimberly Camp RN Sent: 11/15/2022 4:11 PM EDT To: Fermín Schulte MD, Aubrie Fisher Subject: RHC with admission Dr Eris Vital would like this fella scheduled for a RHC with admission on 11/22/22 for fluid optimization. No Special needs. documented in this encounter Plan of Treatment Upcoming Encounters Date Type Department Care Team (Late st Contact Info) Description 07/15/2024 9:00 AM EST Hospital Encounter [facility] Interventional Radiology [address] [place] [address] Herve Carrillo MD [address] [facility] [address] [place] [phone] documented as of this encounter Visit Diagnoses Not on filedocumented in this encounter Additional Health Concerns Assessment Noted Time PHQ-9 Depression Total Score: 0 12/06/19 18 3:00 PM EDT documented as of this encounter Care Teams Spooler Operator Relationship Specialty Start Date End Date Edgar Fournier MD [address] [place] [address] [place] [address] PCP - General 12/22/21 Maile Valles, JANA Txp Post Coordinator Transplant Hepatology 11/07/17 Jack Ordoñez MD [address] [place] [phone] Consulting Physician Transplant Hepatology 01/05/18 Estephania Sharif, PharmD Pharmacist Pharmacist 11/11/19 documented as of this encounter
--- OUTSIDE RECORDS SUMMARY | 2024-07-12 12:27 | XMS_ITS | Encounter Summary ---
Author Organization [facility] Address [facility] [place] [address] Care Team Providers Care Kettle Hand Name Role Phone Maile Valles RN Unavailable Unavail able Jack Ordoñez MD Unavailable Estephania Sharif PharmD Unavailable Christine Edgar Tolentino MD Primary Care Provider [phone] Source Comments This information has been disclosed [...] release of HIV test results or diagnoses. [id number] Encounter Details Date Type Department Care Team (Latest Contact Info) Description 11/08/2022 Travel Social History Tobacco Use Types Packs/Day [...] 07/15/2024 9:00 AM EST Hospital Encounter [facility] Interventional Radiology [address] [place] [phone] Herve Carrillo MD 3130 [facility] 3200 [place] [address] documented as of this encounter Visit Diagnoses Not on filedocumented in this encounter Additional Health Concerns Assessment Noted Time PHQ-9 Depression Total Score: 0 12/06/19 18 3:00 PM EDT documented as of this encounter Care Teams Kettle Hand Relationship Specialty Start Date End Date Edgar Fournier MD [address] [place] [address] [place] [address] PCP - General 12/22/21 Maile Valles, RN Txp Post Coordinator Transplant Hepatology 11/07/17 Jack Ordoñez MD [address] [place] [phone] Consulting Physician Transplant Hepatology 01/05/18 Estephania Sharif, DarrianD Pharmacist Pharmacist 11/11/19 documented as of this encounter
--- OUTSIDE RECORDS SUMMARY | 2024-07-12 12:27 | XMS_ITS | Encounter Summary ---
Author Organization [facility] Address [address] [place] [address] Care Team Providers Care Skidder Name Role Phone Maile Valles RN Unavailable Unavail able Jack Ordoñez MD Unavailable [phone] Estephania Sharif PharmD Unavailable Christine Edgar Tolentino MD Primary Care Provider [phone] Source Comments This information has been disclosed [...] release of HIV test results or diagnoses. [id number] Reason for Visit * Reason Comments Appointment Encounter Details Date Type Department Care Team (Late st Contact Info) Description 07/21/2022 Telephone [facility] Liver Transplant at [address] [place] [address] Anne Whitt MA Appointment Social History Tobacco Use Types Packs/Day [...] Miscellaneous Notes * Telephone Encounter - Anne Whitt MA - 07/21/2022 3:42 PM EST LM for pt to let him know follow-up scheduled with Dr. Ordoñez for 09/08 at 12:30 following his cardiology appt at 10:30. documented in this encounter Plan of Treatment Upcoming Encounters Date Type Department Care Team (Late st Contact Info) Description 07/15/2024 9:00 AM EST Hospital Encounter [facility] Interventional Radiology [address] [place] [address] Herve Carrillo MD 5[address] [facility] 3200 [place] [address] documented as of this encounter Visit Diagnoses Not on filedocumented in this encounter Additional Health Concerns Assessment Noted Time PHQ-9 Depression Total Score: 0 12/06/19 18 3:00 PM EDT documented as of this encounter Care Teams Skidder Relationship Specialty Start Date End Date Edgar Fournier MD [address] [place] [address] [place] [address] PCP - General 12/22/21 Maile Valles, RN Txp Post Coordinator Transplant Hepatology 11/07/17 Jack Ordoñez MD [address] [place] [address] Consulting Physician Transplant Hepatology 01/05/18 Estephania Sharif, PharmD Pharmacist Pharmacist 11/11/19 documented as of this encounter
--- OUTSIDE RECORDS SUMMARY | 2024-07-12 12:27 | XMS_ITS | Encounter Summary ---
Author Organization [facility] Address [address] [place] [address] Care Team Providers Care Cosmetic Consultant Name Role Phone Maile Valles RN Unavailable Unavail able Jack Ordoñez MD Unavailable [phone] Estephania Sharif PharmD Unavailable Christine Edgar Tolentino MD Primary Care Provider [phone] Source Comments This information has been disclosed [...] release of HIV test results or diagnoses. [id number] Health Encounter Details Date Type Department Care Team (Late st Contact Info) Description 10/11/2022 Telephone [facility] Liver Transplant at [address] [place] [address] Lynnette Muhammad MA Social History Tobacco [...] Telephone Encounter - Lynnette Muhammad MA - 10/11/2022 11:04 AM EST Pt called wanting to make an LTRA appointment. Scheduled for 11/10/22. Pt understood. documented in this encounter Plan of Treatment Upcoming Encounters Date Type Department Care Team (Late st Contact Info) Description 07/15/2024 9:00 AM EST Hospital Encounter [facility] Interventional Radiology [address] [place] [phone] Herve Carrillo MD 3130 [facility] 3[address] [place] [address] documented as of this encounter Visit Diagnoses Not on filedocumented in this encounter Additional Health Concerns Assessment Noted Time PHQ-9 Depression Total Score: 0 12/06/19 18 3:00 PM EDT documented as of this encounter Care Teams Cosmetic Consultant Relationship Specialty Start Date End Date Edgar Fournier MD [address] [place] [address] [place] [address] PCP - General 12/22/21 Maile Valles, JANA Txp Post Coordinator Transplant Hepatology 11/07/17 Jack Ordoñez MD [address] [place] [phone] Consulting Physician Transplant Hepatology 01/05/18 Estephania Sharif, PharmD Pharmacist Pharmacist 11/11/19 documented as of this encounter
--- OUTSIDE RECORDS SUMMARY | 2024-07-12 12:27 | XMS_ITS | Encounter Summary ---
Author Organization [facility] Address [address] [place] [address] Care Team Providers Care Customer Experience Specialist Name Role Phone Maile Valles RN Unavailable Unavail able Jack Ordoñez MD Unavailable [phone] Estephania Sharif PharmD Unavailable Christine Edgar Tolentino MD Primary Care Provider [phone] Source Comments This information has been disclosed [...] release of HIV test results or diagnoses. [id number] Health Encounter Details Date Type Department Care Team (Late st Contact Info) Description 08/11/2022 Telephone [facility] Advanced Heart Failure at [place] [facility] 222 [facility] [address] [place] [address] Humza Riley CNP Social History [...] 9:00 AM EST Hospital Encounter [facility] Interventional Radiology [address] [place] [phone] Herve Carrillo MD 3130 [facility] 3200 [place] [phone] documented as of this encounter Visit Diagnoses Not on filedocumented in this encounter Additional Health Concerns Assessment Noted Time PHQ-9 Depression Total Score: 0 12/06/19 18 3:00 PM EDT documented as of this encounter Care Teams Customer Experience Specialist Relationship Specialty Start Date End Date Edgar Fournier MD [address] [place] [address] [place] [address] PCP - General 12/22/21 Maile Valles, JANA Txp Post Coordinator Transplant Hepatology 11/07/17 Jack Ordoñez MD [address] [place] [phone] Consulting Physician Transplant Hepatology 01/05/18 Estephania Sharif, DarrianD Pharmacist Pharmacist 11/11/19 documented as of this encounter
--- OUTSIDE RECORDS SUMMARY | 2024-07-12 12:28 | XMS_ITS | Encounter Summary ---
Author Organization [facility] Address [address] [place] [address] Care Team Providers Care Irrigation Installation Specialist Name Role Phone Maile Valles RN Unavailable Unavail able Jack Ordoñez MD Unavailable [phone] Estephania Sharif PharmD Unavailable Christine Edgar Tolentino MD Primary Care Provider [phone] Source Comments This information has been disclosed [...] release of HIV test results or diagnoses. [id number] Reason for Visit * Reason Comments Advice Only Encounter Details Date Type Department Care Team (Late st Contact Info) Description 06/13/2022 Telephone [facility] Liver Transplant at [address] [place] [address] Maile Valles, continuous improvement consultant Only Social History Tobacco Use Types Packs/Day Years Used Date Smoking Tobacco: Never Smokeless Tobacco: Never Alcohol Use Standard Drinks/Week Comments No 0 (1 standard drink = 0.6 oz [...] suspected to have Coronavirus/COVID-19? No / Unsure 05/18/2022 12:50 PM EDT documented as of this encounter Miscellaneous Notes * Telephone Encounter - Maile Valles RN - 06/13/2022 2:35 PM EDT Call from patient regarding his fistula. He states that it needs cleaned out . 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 Patient states that he spoke to Dr. Ordoñez when he recently had an EGD and was told it could happen here at . Will route message to [facility]. documented in this encounter Plan of Treatment Upcoming Encounters Date Type Department Care Team (Late st Contact Info) Description 07/15/2024 9:00 AM EST Hospital Encounter [facility] Interventional Radiology [address] [place] [address] Herve Carrillo MD [address] [facility] [address] [place] [address] documented as of this encounter Visit Diagnoses Not on filedocumented in this encounter Additional Health Concerns Assessment Noted Time PHQ-9 Depression Total Score: 0 12/06/19 18 3:00 PM EDT documented as of this encounter Care Teams Irrigation Installation Specialist Relationship Specialty Start Date End Date Edgar Fournier MD [address] [place] [address] [place] [phone] PCP - General 12/22/21 Maile Valles, RN Txp Post Coordinator Transplant Hepatology 11/07/17 Jack Ordoñez MD [address] [place] [phone] Consulting Physician Transplant Hepatology 01/05/18 Estephania Sharif, DarrianD Pharmacist Pharmacist 11/11/19 documented as of this encounter
--- OUTSIDE RECORDS SUMMARY | 2024-07-12 12:28 | XMS_ITS | Encounter Summary ---
Author Organization [facility] Address [address] [place] [address] Care Team Providers Care Paper Pattern Folder Name Role Phone Maile Valles RN Unavailable Unavail able Jack Ordoñez MD Unavailable [phone] Estephania Sharif PharmD Unavailable Christine Edgar Tolentino MD Primary Care Provider [phone] Source Comments This information has been disclosed [...] release of HIV test results or diagnoses. [id number] Reason for Visit * Reason Comments Labs Only Encounter Details Date Type Department Care Team (Late st Contact Info) Description 06/21/2022 3:45 PM EST Specimen [facility] Outreach Lab [address] [facility] [address] [place] [phone] Fermín Schulte MD Pre-transplant evaluation for kidney transplant; Pulmonary HTN (CMS-HCC); Essential (primary) hypertension Social History Tobacco Use Types Packs/Day [...] suspected to have Coronavirus/COVID-19? No / Unsure 06/21/2022 1:47 PM EST documented as of this encounter Plan of Treatment Upcoming Encounters Date Type Department Care Team (Late st Contact Info) Description 07/15/2024 9:00 AM EST Hospital Encounter [facility] Interventional Radiology [address] [place] [phone] Herve Carrillo MD [address] [facility] [address] [facility] [place] [phone] documented as of this encounter Procedures Procedure Name Priority Date/Time Associated Diagnosis Comments PROTIME-INR STAT 06/21/2022 3:52 PM EST Pre-transplant evaluation for kidney transplant Pulmonary HTN (CMS-HCC) Essential (primary) hypertension CBC STAT 06/21/2022 3:52 PM EST Pre-transplant evaluation for kidney transplant Pulmonary HTN (CMS-HCC) Essential (primary) hypertension MAGNESIUM STAT 06/21/2022 3:52 PM EST Pre-transplant evaluation for kidney transplant Pulmonary HTN (CMS-HCC) Essential (primary) hypertension BASIC METABOLIC PANEL STAT 06/21/2022 3:52 PM EST Pre-transplant evaluation for kidney transplant Pulmonary HTN ([facility]-HCC) Essential (primary) hypertension documented in this encounter Results * Protime-INR (06/21/2022 3:52 PM EST) Protime 15.0 12.1 - 15.1 seconds 06/21/2022 4:55 PM EST [facility] INR 1.1 0.9 - 1.1 06/21/2022 4:55 PM EST [facility] Comment: RECOMMENDED THERAPEUTIC RANGES USING INR : ?Stable oral anticoagulant therapy: ? 2.0 - 3.0 ?Mechanical prosthetic heart valve: ? 2.5 - 3.5 ?Recurrent acute myocardial infarction: ? 2.5 - 3.5 Plasma 06/21/2022 3:52 PM EST 06/21/2022 4:22 PM EST Fermín Schulte MD LAB BLOOD ORDERABLES Final Resul t Performing Organization Address [facility] de Phone Number [facility] [address] [place] [address] * Magnesium (06/21/2022 3:52 PM EST) Magnesium 2.0 1.5 - 2.5 mg/dL 06/21/2022 5:11 PM EST [facility] Plasma 06/21/2022 3:52 PM EST 06/21/2022 4:22 PM EST us Fermín Schulte MD LAB BLOOD ORDERABLES Final Resul t Performing Organization Address [facility] de Phone Number [facility] [address] [place] [address] * (ABNORMAL) Basic metabolic panel (06/21/2022 3:52 PM EST) Sodium 144 133 - 146 mmol/L 06/21/2022 5:11 PM EST [facility] Potassium 5.6(H) 3.5 - 5.3 mmol/L 06/21/2022 5:11 PM EST [facility] Chloride 99 98 - 110 mmol/L 06/21/2022 5:11 PM EST [facility] CO2 30 21 - 33 mmol/L 06/21/2022 5:11 PM EST [facility] Anion Gap 15 3 - 16 mmol/L 06/21/2022 5:11 PM EST [facility] BUN 65(H) 7 - 25 mg/dL 06/21/2022 5:11 PM EST [facility] Creatinine 9.44(H) 0.60 - 1.30 mg/dL 06/21/2022 5:11 PM EST [facility] Glucose 97 70 - 100 mg/dL 06/21/2022 5:11 PM EST [facility] Calcium 8.9 8.6 - 10.3 mg/dL 06/21/2022 5:11 PM EST [facility] Osmolality, Calculated 317(H) 278 - 305 mOsm/kg 06/21/2022 5:11 PM EST [facility] EGFR 6 06/21/2022 5:11 PM EST [facility] Comment:As of 2021, the estimated [...] Disease. Am J Kidney Dis. 2020. Plasma 06/21/2022 3:52 PM EST 06/21/2022 4:22 PM EST Narrative [facility] - 06/21/2022 5:11 PM EST Must the patient be fasting for this test?->No Fermín Schulte MD LAB BLOOD ORDERABLES Final Resul t Performing Organization Address City/[facility]/ZIP Co de Phone Number [facility] [address] * (ABNORMAL) CBC (06/21/2022 3:52 PM EST) WBC 3.8 3.8 - 10.8 10E3/uL 06/21/2022 4:41 PM EST [facility] RBC 3.08(L) 4.20 - 5.80 10E6/uL 06/21/2022 4:41 PM EST [facility] Hemoglobin 10.1(L) 13.2 - 17.1 g/dL 06/21/2022 4:41 PM EST [facility] Hematocrit 30.5(L) 38.5 - 50.0 % 06/21/2022 4:41 PM EST [facility] MCV 99.0 80.0 - 100.0 fL 06/21/2022 4:41 PM EST [facility] MCH 32.7 27.0 - 33.0 pg 06/21/2022 4:41 PM EST [facility] MCHC 33.0 32.0 - 36.0 g/dL 06/21/2022 4:41 PM EST [facility] RDW 15.7(H) 11.0 - 15.0 % 06/21/2022 4:41 PM EST [facility] Platelets 215 140 - 400 10E3/uL 06/21/2022 4:41 PM EST [facility] MPV 7.1(L) 7.5 - 11.5 fL 06/21/2022 4:41 PM EST [facility] Whole Blood 06/21/2022 3:52 PM EST 06/21/2022 4:22 PM EST Fermín Schulte MD LAB BLOOD ORDERABLES Final Resul t Performing Organization Address City/[facility]/ZIP Co de Phone Number [facility] [address] [place] [address], [place] documented in this encounter Visit Diagnoses Diagnosis Pre-transplant evaluation for kidney transplant Pulmonary HTN (CMS-HCC) Essential (primary) hypertension Unspecified essential hypertension documented in this encounter Additional Health Concerns Assessment Noted Time PHQ-9 Depression Total Score: 0 12/06/19 18 3:00 PM EDT documented as of this encounter Care Teams Paper Pattern Folder Relationship Specialty Start Date End Date Edgar Fournier MD [address] [place] [address] [place] [address] PCP - General 12/22/21 Maile Valles, RN Txp Post Coordinator Transplant Hepatology 11/07/17 Jack Ordoñez MD [address] [place] [phone] Consulting Physician Transplant Hepatology 01/05/18 Estephania Sharif, DarrianD Pharmacist Pharmacist 11/11/19 documented as of this encounter
--- OUTSIDE RECORDS SUMMARY | 2024-07-12 12:28 | XMS_ITS | Encounter Summary ---
Author Organization [facility] Address [address] [place] [address] Care Team Providers Care Glass Installer Name Role Phone Maile Valles RN Unavailable Unavail able Jack Ordoñez MD Unavailable [phone] Estephania Sharif PharmD Unavailable Christine Edgar Tolentino MD Primary Care Provider [phone] Source Comments This information has been disclosed [...] release of HIV test results or diagnoses. [id number] Reason for Visit * Reason Comments Medication Refill Encounter Details Date Type Department Care Team (Late st Contact Info) Description 05/05/2022 Refill [facility] Internal Medicine at [address] [place] [address] Alex De Guzman DO Social History Tobacco Use Types Packs/Day [...] suspected to have Coronavirus/COVID-19? No / Unsure 05/01/2022 3:11 PM EDT documented as of this encounter Miscellaneous Notes * Telephone Encounter - Aubrie Lopez MA - 05/05/2022 10:45 AM EDT Last Office Visit - 04/07/22 Next Office Visit - 05/18/22 documented in this encounter Plan of Treatment Upcoming Encounters Date Type Department Care Team (Late st Contact Info) Description 07/15/2024 9:00 AM EST Hospital Encounter [facility] Interventional Radiology [address] [place] [phone] Herve Carrillo MD [address] [facility] [address] [place] [phone] documented as of this encounter Visit Diagnoses Not on filedocumented in this encounter Additional Health Concerns Assessment Noted Time PHQ-9 Depression Total Score: 0 12/06/19 18 3:00 PM EDT documented as of this encounter Care Teams Glass Installer Relationship Specialty Start Date End Date Edgar Fournier MD [address] [place] [address] [place] [address] PCP - General 12/22/21 Maile Valles, RN Txp Post Coordinator Transplant Hepatology 11/07/17 Jack Ordoñez MD [address] [place] [phone] Consulting Physician Transplant Hepatology 01/05/18 Estephania Sharif, DarrianD Pharmacist Pharmacist 11/11/19 documented as of this encounter
--- OUTSIDE RECORDS SUMMARY | 2024-07-12 12:28 | XMS_ITS | Encounter Summary ---
Author Organization [facility] Address [facility] [place] [address] Care Team Providers Care Extracting Machine Operator Name Role Phone Maile Valles RN Unavailable Unavail able Jack Ordoñez MD Unavailable [phone] Estephania Sharif PharmD Unavailable Christine Edgar Tolentino MD Primary Care Provider [phone] Source Comments This information has been disclosed [...] release of HIV test results or diagnoses. [id number] Encounter Details Date Type Department Care Team (Latest Contact Info) Description 06/21/2022 Travel Social History Tobacco Use Types Packs/Day [...] Description 07/15/2024 9:00 AM EST Hospital Encounter [facility] Interventional Radiology [address] [place] [phone] Herve Carrillo MD [address] [facility] [address] [place] [address] documented as of this encounter Visit Diagnoses Not on filedocumented in this encounter Additional Health Concerns Assessment Noted Time PHQ-9 Depression Total Score: 0 12/06/19 18 3:00 PM EDT documented as of this encounter Care Teams Extracting Machine Operator Relationship Specialty Start Date End Date Edgar Fournier MD [address] [place] [phone] PCP - General 12/22/21 Maile Valles, JANA Txp Post Coordinator Transplant Hepatology 11/07/17 Jack Ordoñez MD [address] [place] [phone] Consulting Physician Transplant Hepatology 01/05/18 Estephania Sharif, DarrianD Pharmacist Pharmacist 11/11/19 documented as of this encounter
--- OUTSIDE RECORDS SUMMARY | 2024-07-12 12:28 | XMS_ITS | Encounter Summary ---
Author Organization [facility] Address [address] [place] [address] Care Team Providers Care Chief Building Inspector Name Role Phone Maile Valles RN Unavailable Unavail able Jack Ordoñez MD Unavailable [phone] Estephania Sharif PharmD Unavailable Christine Edgar Tolentino MD Primary Care Provider [phone] Source Comments This information has been disclosed [...] release of HIV test results or diagnoses. [id number] Health Encounter Details Date Type Department Care Team (Late st Contact Info) Description 06/14/2022 Telephone [facility] Vascular Access at [facility] [address] [facility] [address] [place] [address] Marilin Luo Social History Tobacco Use Types Packs/Day Years [...] encounter Miscellaneous Notes * Telephone Encounter - Marilin Luo - 06/14/2022 9:40 AM EDT Spoke with patient regarding AVF concerns. States he is still able to use AVF for HD. Denies skin changes. Advised referral to IR will be placed for fistulagram and they will call him directly to schedule. Pt prefers procedure at [facility] instead of near his home. documented in this encounter Plan of Treatment Upcoming Encounters Date Type Department Care Team (Late st Contact Info) Description 07/15/2024 9:00 AM [facility] Hospital Encounter [facility] Interventional Radiology [address] [place] [address] Herve Carrillo MD [address] [facility] [address] [place] [phone] documented as of this encounter Visit Diagnoses Not on filedocumented in this encounter Additional Health Concerns Assessment Noted Time PHQ-9 Depression Total Score: 0 12/06/19 18 3:00 PM EDT documented as of this encounter Care Teams Chief Building Inspector Relationship Specialty Start Date End Date Edgar Fournier MD [address] [place] [address] Dr [address] [phone] PCP - General 12/22/21 Maile Valles, RN Txp Post Coordinator Transplant Hepatology 11/07/17 Jack Ordoñez MD [address] [place] [phone] Consulting Physician Transplant Hepatology 01/05/18 Estephania Sharif, PharmD Pharmacist Pharmacist 11/11/19 documented as of this encounter
--- OUTSIDE RECORDS SUMMARY | 2024-07-12 12:28 | XMS_ITS | Encounter Summary ---
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 7:14 AM EST [facility] INR 1.1 0.9 - 1.1 06/23/2022 7:14 AM EST [facility] Comment: RECOMMENDED THERAPEUTIC RANGES USING INR : ?Stable oral anticoagulant therapy: ? 2.0 - 3.0 ?Mechanical prosthetic heart valve: ? 2.5 - 3.5 ?Recurrent acute myocardial infarction: ? 2.5 - 3.5 Plasma 06/23/2022 6:37 AM EST 06/23/2022 7:01 AM EST us Fermín Schulte MD LAB BLOOD ORDERABLES Final Resul t [facility] [address] [place] [address], [facility] * (ABNORMAL) Renal Function Panel w/EGFR (06/23/2022 6:37 AM EST) Sodium 144 133 - 146 mmol/L 06/23/2022 7:31 AM EST [facility] Potassium 5.0 3.5 - 5.3 mmol/L 06/23/2022 7:31 AM EST [facility] Chloride 100 98 - 110 mmol/L 06/23/2022 7:31 AM EST [facility] CO2 30 21 - 33 mmol/L 06/23/2022 7:31 AM EST [facility] Anion Gap 14 3 - 16 mmol/L 06/23/2022 7:31 AM EST [facility] BUN 50(H) 7 - 25 mg/dL 06/23/2022 7:31 AM EST [facility] Creatinine 8.54(H) 0.60 - 1.30 mg/dL 06/23/2022 7:31 AM EST [facility] Glucose 158(H) 70 - 100 mg/dL 06/23/2022 7:31 AM EST [facility] Calcium 9.3 8.6 - 10.3 mg/dL 06/23/2022 7:31 AM EST [facility] Phosphorus 5.6(H) 2.1 - 4.7 mg/dL 06/23/2022 7:31 AM EST [facility] Albumin 4.2 3.5 - 5.7 g/dL 06/23/2022 7:31 AM EST [facility] Osmolality, Calculated 315(H) 278 - 305 mOsm/kg 06/23/2022 7:31 AM EST [facility] EGFR 7 06/23/2022 7:31 AM EST [facility] Comment:As of 2021, the [...] Disease. Am J Kidney Dis. 2020. Plasma 06/23/2022 6:37 AM EST 06/23/2022 7:01 AM EST us Fermín Schulte MD LAB BLOOD ORDERABLES Final Resul t [facility] [address] * (ABNORMAL) CBC (06/23/2022 6:37 AM EST) WBC 3.7(L) 3.8 - 10.8 10E3/uL 06/23/2022 7:07 AM EST [facility] RBC 3.03(L) 4.20 - 5.80 10E6/uL 06/23/2022 7:07 AM EST [facility] Hemoglobin 9.8(L) 13.2 - 17.1 g/dL 06/23/2022 7:07 AM [facility] Hematocrit 29.8(L) 38.5 - 50.0 % 06/23/2022 7:07 AM EST [facility] MCV 98.5 80.0 - 100.0 fL 06/23/2022 7:07 AM EST [facility] MCH 32.4 27.0 - 33.0 pg 06/23/2022 7:07 AM EST [facility] MCHC 32.9 32.0 - 36.0 g/dL 06/23/2022 7:07 AM [facility] RDW 16.3(H) 11.0 - 15.0 % 06/23/2022 7:07 AM EST [facility] Platelets 217 140 - 400 10E3/uL 06/23/2022 7:07 AM [facility] MPV 6.9(L) 7.5 - 11.5 fL 06/23/2022 7:07 AM EST [facility] Whole Blood 06/23/2022 6:37 AM EST 06/23/2022 7:01 AM EST us Fermín Schulte MD LAB BLOOD ORDERABLES Final Resul t [facility] [address] [place] [address], [facility] documented in this encounter Visit Diagnoses Diagnosis Pre-transplant evaluation for kidney transplant Pulmonary HTN (CMS-HCC) Essential (primary) hypertension Unspecified essential hypertension Pre-transplant evaluation for kidney transplant Pulmonary HTN (CMS-HCC) Essential (primary) hypertension Unspecified essential hypertension documented in this encounter Administered Medications Inactive Administered Medications - up to 3 most recent administrations Medication Order MAR Action Action Date Dose Rate Site clopidogreL (PLAVIX) tablet 75 mg 75 mg, Oral, Daily, First dose on Mon06/24/22 at 0900 fentaNYL (SUBLIMAZE) injection 12.5 mcg 12.5 mcg, Intravenous, Once, On Bobbi 06/23/22 at 0800, For 1 dose, HIGH ALERT MEDICATION Given 06/23/2022 8:04 AM EST 12.5 mcg midazolam (PF) (VERSED) injection 0.5 mg 0.5 mg, Intravenous, Once, On Bobbi 06/23/22 at 0800, For 1 dose Given 06/23/2022 8:04 AM EST 0.5 mg documented in this encounter Active and Recently Administered Medications Times are shown in EST. Scheduled Medication Order 06/21/2022 06/22/2022 06/23/2022 clopidogreL (PLAVIX) tablet 600 mg (COMPLETED) 600 mg, Oral, Once, On Bobbi 06/23/22 at 0930, For 1 dose 0900 (Given - Provid er: Hany Cannon RN)0930 (Due) clopidogreL (PLAVIX) tablet 75 mg 75 mg, Oral, Daily, First dose on Mon06/24/22 at 0900 fentaNYL (SUBLIMAZE) injection 12.5 mcg (COMPLETED) 12.5 mcg, Intravenous, Once, On Bobbi 06/23/22 at 0800, For 1 dose, HIGH ALERT MEDICATION 0804 (Given - Provid er: Hany Cannon RN) midazolam (PF) (VERSED) injection 0.5 mg (COMPLETED) 0.5 mg, Intravenous, Once, On Bobbi 06/23/22 at 0800, For 1 dose 0804 (Given - Provid er: Hany Cannon RN) PRN Medication Order 06/21/2022 06/22/2022 06/23/2022 OMNIPAQUE (iohexol) 350 mg iodine/mL (CANCELED) Intra-op PRN, Starting on Bobbi 06/23/22 at 0900, Intra-procedure(Invasive Cardiology) 0900 (Given - Provid er: Fermín Schulte MD) documented in this encounter Additional Health Concerns Assessment Noted Time PHQ-9 Depression Total Score: 0 12/06/19 18 3:00 PM EDT documented as of this encounter Care Teams Tail Dogger Relationship Specialty Start Date End Date Edgar Fournier MD [address] [place] [address] [place] [id number] PCP - General 12/22/21 Maile Valles, JANA Txp Post Coordinator Transplant Hepatology 11/07/17 Jack Ordoñez MD [address] [place] [id number] Consulting Physician Transplant Hepatology 01/05/18 Estephania Sharif, DarrianD Pharmacist Pharmacist 11/11/19 documented as of this encounter
--- OUTSIDE RECORDS SUMMARY | 2024-07-12 12:28 | XMS_ITS | Encounter Summary ---
Author Organization [facility] Address [facility] [place] [address] Care Team Providers Care Fly Raiser Lockstitch Name Role Phone Maile Valles RN Unavailable Unavail able Jack Ordoñez MD Unavailable [phone] Estephania Sharif PharmD Unavailable Christine Edgar Tolentino MD Primary Care Provider [phone] Source Comments This information has been disclosed [...] release of HIV test results or diagnoses. [id number] Reason for Visit * Auth/Cert Specialty Diagnoses / Procedures Referred By Contact Referred To Contact Gastroenterology Diagnoses gastric ulcer Procedures EGD 30157 (CPT??) - [place] ESOPHAGOGASTRODUODENOSCOPY TRANSORAL DIAGNOSTIC 27718 (CPT??) - [place] EGD TRANSORAL BIOPSY SINGLE/MULTIPLE 79412 (CPT??) - [place] EGD REMOVAL TUMOR POLYP/OTHER LESION SNARE TECH [facility] ENDOSCOPY [address] [place] [address] Phone: [phone] Referral ID Status Reason Start Date Expiration Date Visits Re quested Visits Authorized [id number] 1 1 Encounter Details Date Type Department Care Team (Late st Contact Info) Description 05/18/2022 4:27 PM EDT Anesthesia Event [facility] ENDOSCOPY [address] [place] [address] Deepak Carmen MD [address] [place] [address] Jordin Kaur DO [address] [place] [address] Anesthesia Record Procedure Summary Procedure Name Responsible Anesthesiologist Anesthesia Start Time Anesthesia Stop Time EGD Deepak Carmen MD 05/18/22 1627 05/18/22 1659 Events Date Time Event Comment 05/18/2022 1443 1627 An Start 1628 An Start Data 1631 An Induction 1631 Quick Note Prophylactic 30 mm NPA in right nare inserted with minimal resistance after asleep. 1632 Time Out 1635 Quick Note Pt obstructing, not relieved with jaw thrust. Endoscopist instructed to remove scope. Dr Carmen notified. 1637 Quick Note Lma 4 inserted, PSV setting 1637 An LMA 1638 Quick Note Ventilation and oxygenation improved with LMA and PSV vent setting. 1641 LMA Removed 1642 An Emergence 1642 an stop data 1659 An Stop Meds Name Total lidocaine (XYLOCAINE) 20 mg/mL (2%) inje ction 60 mg propofol (DIPRIVAN) 10 mg/ml infusion - 100mL VIAL SIZE 117.08 mg propofol (DIPRIVAN) 10 mg/ml IV injectio n (BOLUS) 100 mg lactated ringers infusion 200 mL * Agents Name Auxiliary O2 O2 * Blood No blood administrations on file. Lines, Drains, and Airways Type Details Placement Removal Hemodialysis Access Left; Upper Arm; Not present upon assessment 05/02/22 1451 by 04/27/243 by Francesca Wood RN Anesthesia Airway Device 04/26/22; 1439; Nasal Cannula Salter; I.V.; 1; CINDER DUMP CRANE OPERATOR; Capnograph; 05/18/22; 1642 04/26/22 1439 by Sylvain Ramos CRNA 05/18/22 1642 by Wilmer Fragoso CRNA Peripheral IV 05/18/22; 1450; 20 G ; Anterior, Right; Forearm; Alcohol; Standard; Tolerated well 05/18/22 1450 by Roxi Gurrola RN 05/18/22 1722 by Judi Villalba RN documented in this encounter Social History [...] Recorded In the last 10 days, have stefany cortez been in contact with someone who was confirmed or suspected to have Coronavirus/COVID-19? No / Unsure 05/18/2022 12:50 PM EDT documented as of this encounter Progress Notes * Deepak Carmen MD - 05/20/2022 6:30 PM EDT Anesthesia Post Note Patient: Aiden Stauffer Procedure(s) Performed: Procedure(s): EGD Anesthesia type: MAC Patient location: Endoscopy PACU Airway: Patent Post pain: Adequate analgesia Nausea / Vomiting: Absent Post-operative Hydration Status: Adequate Post assessment: no apparent anesthetic complications, tolerated procedure well and no evidence of recall Last Vitals: Vitals: 05/18/22 1438 05/18/22 1650 05/18/22 1705 05/18/22 1720 BP: 168/89 175/84 163/85 163/88 BP Location: Right arm Right arm Patient Position: Lying Pulse: 79 Resp: 18 18 18 18 Temp: 97.3 ??F (36.3 ??C) 98.1 ??F (36.7 ??C) TempSrc: Oral Oral SpO2: 90% 100% 94% 94% Weight: (!) 295 lb (133.8 kg) Height: 5' 9 (1.753 m) Post vital signs: stable Level of consciousness: awake, alert and oriented Complications: There were no known complications for this encounter. documented in this encounter H&P Notes * Jordin Kaur MD - 05/17/2022 7:50 PM EDT [facility] DEPARTMENT OF ANESTHESIOLOGY PRE-PROCEDURAL EVALUATION Aiden Stauffer Jr. is a 47 y.o. year old male presenting for: Procedure(s): EGD Surgeon: Jack Ordoñez MD Chief Complaint Review of Systems Anesthesia Evaluation Patient summary reviewed and Previous anesthesia note reviewed. No history of anesthetic complications ( took a long time to wake up after one anesthetic) I have reviewed the History and Physical Exam, any relevant changes are noted in the anesthesia pre-operative evaluation. Cardiovascular: Exercise tolerance: poor Pérez Met score: 3 - Walking on a flat surface for one or two blocks.Pulmonary hypertension is moderate. Hypertension (BP 140/80 to 180+/110+) is poorly controlled. Valvular problems/murmurs (c/o mitral valve vegitation) related to. (-) pacemaker, past VT, CAD, cardiomyopathy, CABG/stent, dysrhythmias, angina, no hyperlipidemia. ROS comment: patient was seen in my office for cardiac evaluation before EGD. Patient is a class IV risk from a cardiovascular standpoint according to the revised cardiac risk index and has a 15% 30 day risk of , VT, or cardiac arrest. Risk related to: CHF history, pre-op treatment with insulin, pre-op creatinine > 2mg/dL Additional risk related to severe pulmonary hypertension, Patient will be more susceptible to fluidshifts Cath 05/05 IMPRESSIONS: 1. Normal coronary arteries. 2. Non-ischemic cardiomyopathy. 3. Elevated left sided filling pressures. 4. Uncontrolled hypertension. RECOMMENDATIONS: Further care of volume control and valvular cardiomyopathy per primary inpatient team. Echo 05/05 Study Conclusions - Left ventricle: Systolic function was mildly reduced. - Aortic valve: Left coronary cusp mobility was restricted. There is no evidence of a vegetation. Trivial regurgitation. - Mitral valve: There is no evidence of a vegetation. - Left atrium: The atrium is dilated. There is no evidence of a thrombus in the atrial cavity or appendage. Low emptying velocities. - Right ventricle: Systolic function was normal. - Right atrium: There is no evidence of a thrombus in the atrial cavity or appendage. - Tricuspid valve: There is no evidence of a vegetation. Moderate regurgitation. - Pulmonic valve: There is no evidence of a vegetation. Impressions: There is no vegetation. The mass seen in a small calcification at the annulus. While all structures were visualized, the study was terminate prematurely due to patient instability from hypoxia. EKG 05/05 SINUS RHYTHM WITH 1ST DEGREE A-V BLOCK ^ CANNOT RULE OUT INFERIOR INFARCT , AGE UNDETERMINED ^ PROLONGED QT ^ ABNORMAL ECG ^ COMPARED TO THE ECG OF 03-MAY-2022 03:02, ^ THERE IS NO SIGNIFICANT CHANGE^ Confirmed by Marcelino JERRY MD ([id number]) on 05/03/2022 11:44:28 AM Stress tset 2018 FINAL INTERPRETATION Abnormal study with apical to basal inferior wall mixed ischemia and scar. The left ventricle is moderately dilated. Overall study quality is good. There is a study artifact related to diaphragmatic attenuation Scan significance indicates moderate cardiac risk. Test sensitivity is reduced with testing on anti-anginal drugs. Echo 03/17/22 - Left ventricle: The cavity size is normal. Wall thickness was increased in a pattern of moderate ?LVH. Systolic function was mildly reduced. The estimated ejection fraction was in the range of 45% ?to 50%. Features are consistent with a pseudonormal left ventricular filling pattern, with ?concomitant abnormal relaxation and increased filling pressure (grade 2 diastolic dysfunction). - Regional wall motion abnormality: Hypokinesis of the basal-mid anteroseptal myocardium. - Aortic valve: Focal calcification involving the left coronary cusp. Left coronary cusp mobility ?was severely restricted. - Mitral valve: Moderately calcified annulus. There is a mobile echodensity on the posterior aspect ?of the mitral annulus which represents a small mobile calcification versus vegetation. - Right ventricle: The cavity size is severely dilated. Wall thickness is normal. Systolic function ?was moderately reduced by visual assessment. Tricuspid annular systolic velocity: 8cm/s. - Pulmonary arteries: The peak pressure during systole by Doppler is 61mm Hg. - Inferior vena cava: The vessel was dilated. The respirophasic diameter changes were blunted (< ?50%), consistent with elevated central venous pressure. Impressions: ??Compared to prior there is likely a mild interval decrease in the LV ejection fraction. The RV is better visualized on the current study and is dilated with moderately depressed function. [facility] 04/25/22 IMPRESSIONS: ?? 1. Normal coronary arteries. 2. Non-ischemic cardiomyopathy. 3. Elevated left sided filling pressures. 4. Uncontrolled hypertension. ?? RECOMMENDATIONS: Further care of volume control and valvular cardiomyopathy per primary inpatient team. 03/17/22 [facility] CI 4.41L/(min-m^2) RA pressure a/v (m) !25/25 (25) RV pressure s/d, ed !60/15, 15 PA wedge a/v (m) !30/30 (30) MPA pressure s/d (m) !60/23 (40) Aortic pressure s/d (m) !185/91 (122) IMPRESSIONS: ?? 1. Markedly elevated biventricular pressures. 2. Severe pulmonary hypertension. 3. Preserved cardiac index and output. Neuro/Muscoloskeletal/Psych: (+) back problem (Doing well s/p back surgery). (-) seizures, TIA, CVA. Comments: fatigue Pulmonary: (+) shortness of breath. Sleep apnea on CPAP. (-) COPD, asthma. 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 GERD is well controlled. Chronic renal disease (On dialysis MWF. last dialyzed monday), ESRD, hemodialysis. 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 Diabetes, well controlled, type 2. (-) hypothyroidism, hyperthyroidism, no thrombocytopenia, no bleeding disorder, no clotting disorder. Comments: Hyperglycemia Vit d def Osteomyelitis BMI 43.56 Past Medical History Past Medical History: Diagnosis [...] Dx) ??? Vitamin D deficiency Past Surgical History [...] ??? TYMPANOSTOMY TUBE PLACEMENT 07/2020 Family History Family History Problem Relation Age of Onset ??? Asthma Mother ??? Kidney disease Mother ??? Diabetes Mother ??? Alcohol abuse Father ??? Esophageal Cancer Father ??? Heart failure Sister ??? Diabetes Sister ??? Liver disease Sister ??? Alcohol abuse Sister ??? Anesthesia problems Neg Hx Social History Social History Socioeconomic History ??? Marital status: Spouse name: Not on file ??? Number of children: Not on file ??? Years of education: Not on file ??? Highest education level: Not on file Occupational History ??? Not on file Tobacco Use ??? Smoking status: Never Smoker ??? Smokeless tobacco: Never Used Vaping Use ??? Vaping Use: Never used Substance and Sexual Activity ??? Alcohol use: No ??? Drug use: No ??? Sexual activity: Yes Partners: Female control/protection: Condom Other Topics Concern ??? Caffeine Use No ??? 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 Exercise Yes ??? Seat Belt Yes Social History Narrative ??? Not on file Social Determinants of Health Financial Resource Strain: Not on file Physical Activity: Not on file Stress: Not on file Social Connections: Not on file Housing Stability: Not on file Medications Allergies: Allergies Allergen Reactions ??? Tacrolimus Other (See Comments) Anxious feeling and muscle jerking. TOLERATED ENVARSUS BETTER THAN PROGRAF. ??? Codeine Sulfate Hyper ??? Codeine Other (See Comments) Becomes hyper Home Meds: Prior to Admission medications as of 05/17/22 1013 Medication Sig Taking? ALPRAZolam (XANAX) 0.5 MG tablet Take 0.5 mg by mouth if needed for Sleep. aspirin 81 MG chewable tablet Chew 1 tablet (81 mg total) by mouth daily with breakfast. calcium acetate,phosphat bind, (PHOSLO) 667 mg capsule Take 667 mg by mouth 3 times a day with meals. carBAMazepine (TEGRETOL) 200 mg tablet Take 200 mg by mouth 2 times a day. carvediloL (COREG) 12.5 MG tablet Take 1 tablet (12.5 mg total) by mouth 2 times a day with meals. cholecalciferol, vitamin D3, 1,250 mcg (50,000 unit) capsule Take 1 capsule by mouth three times weekly on Monday, , and Monday. cinacalcet (SENSIPAR) 30 MG tablet Take 1 tablet (30 mg total) by mouth daily with breakfast. cycloSPORINE modified (CYCLOSPORINE MODIFIED) 25 MG capsule Take 4 capsules (100 mg total) by mouth2 times a day. doxazosin (CARDURA) 8 MG tablet Take 8 mg by mouth at bedtime. entecavir (BARACLUDE) 0.5 MG tablet Take 1 tablet (0.5 mg total) by mouth every 7 days. fenofibrate micronized (LOFIBRA) 134 MG capsule Take 134 mg by mouth every morning before breakfast. ferrous sulfate 325 (65 FE) MG tablet Take 1 tablet (325 mg total) by mouth daily with breakfast. folic acid (FOLVITE) 1 MG tablet Take 1 tablet (1 mg total) by mouth daily. gabapentin (NEURONTIN) 100 MG capsule Take 1 capsule (100 mg total) by mouth 3 times a day. hydrALAZINE (APRESOLINE) 100 MG tablet Take 1 tablet (100 mg total) by mouth every 8 hours. insulin aspart U-100 (NOVOLOG) 100 unit/mL injection Administers per sliding scale 3 times daily with meals isosorbide dinitrate (ISORDIL) 10 MG tablet lidocaine (LIDODERM) 5 % Place 1 patch onto the skin daily as needed. lisinopriL (PRINIVIL) 40 MG tablet Take 1 tablet (40 mg total) by mouth daily. magnesium oxide (MAG-OX) 400 mg tablet Take 1 tablet (400 mg total) by mouth 2 times a day. methocarbamoL (ROBAXIN) 500 MG tablet Take 500 mg by mouth 4 times daily before meals and at bedtime. montelukast (SINGULAIR) 10 mg tablet Take 10 mg by mouth daily. mycophenolate (CELLCEPT) 250 mg capsule Take 1 capsule (250 mg total) by mouth 2 times a day. NIFEdipine (PROCARDIA-XL) 90 MG (OSM) 24 hr tablet Take 90 mg by mouth 2 times a day. ondansetron (ZOFRAN-ODT) 4 MG disintegrating tablet Take 4 mg by mouth every 8 hours as needed. pantoprazole (PROTONIX) 40 MG tablet Take 1 tablet (40 mg total) by mouth 2 times a day. polyethylene glycol (MIRALAX) 17 gram packet Take 17 g by mouth daily as needed (mild constipation (no BM for 24 hrs)). proMETHazine (PHENERGAN) 12.5 MG tablet Take 12.5 mg by mouth every 6 hours as needed. sevelamer carbonate (RENVELA) 800 mg tablet Take 1,600 mg by mouth 3 times a day with meals. testosterone cypionate (DEPOTESTOTERONE CYPIONATE) 200 mg/mL injection Inject into the muscle. VASCEPA 1 gram Cap TAKE 2 Capsule by mouth twice daily Inpatient Meds: Scheduled: Continuous: PRN: Vital Signs Wt Readings from Last 3 Encounters: 05/02/22 (!) 295 lb (133.8 kg) 04/07/22 (!) 290 lb 9.6 oz (131.8 kg) 03/25/22 (!) 295 lb 3.1 oz (133.9 kg) Ht Readings from Last 3 Encounters: 05/02/22 5' 9 (1.753 m) 04/07/22 5' 9 (1.753 m) 03/23/22 5' 9 (1.753 m) Temp Readings from Last 3 Encounters: 05/03/22 97.4 ??F (36.3 ??C) (Oral) 04/25/22 97.7 ??F (36.5 ??C) (Oral) 04/07/22 97.2 ??F (36.2 ??C) (Temporal) BP Readings from Last 3 Encounters: 05/03/22 180/85 04/26/22 (!) 155/98 04/25/22 185/87 Pulse Readings from Last 3 Encounters: 05/03/22 79 04/26/22 78 04/25/22 80 @LASTSAO2(3)@ Physical Exam Airway: Mallampati: III Mouth Opening: >2 FB TM distance: > = 3 FB Neck ROM: full Comment: 2018: I.V., Rapid Sequence; Standard; cricoid pressure; Laryngoscope Handle; Mac; 3; Oral; Grade I View; ETT; 8 mm; Cuffed (To seal); 21 cm; Stylet Standard; 1; Resident (+) short neck Dental: - No obvious cracked, loose, chipped, or missing teeth. Pulmonary: Breath sounds clear to auscultation. Cardiovascular: Rhythm: regular Rate: normal Neuro/Musculoskeletal/Psych: Abdominal: Obese. Current OB Status: Other Findings: Laboratory Data Lab Results Component Value Date WBC 4.0 05/03/2022 HGB 8.4 (L) 05/03/2022 HCT 24.9 (L) 05/03/2022 MCV 97.0 05/03/2022 PLT 216 05/03/2022 No results found for: ABORH Lab Results Component Value Date GLUCOSE 143 (H) 05/03/2022 BUN 41 (H) 05/03/2022 CO2 28 05/03/2022 CREATININE 7.84 (H) 05/03/2022 K 3.9 05/03/2022 NA 138 05/03/2022 CL 98 05/03/2022 CALCIUM 8.8 05/03/2022 ALBUMIN 3.9 05/03/2022 PROT 7.8 05/01/2022 ALKPHOS 66 05/01/2022 ALT 6 (L) 05/01/2022 AST 11 (L) 05/01/2022 BILITOT 0.7 05/01/2022 Lab Results Component Value Date INR 1.3 (H) 05/02/2022 No results found for: PREGTESTUR, PREGSERUM, HCG, HCGQUANT Anesthesia Plan ASA 3 Current non-smoker Anesthesia Type: MAC. PONV Risk Factors: current non-smoker, (Discussed possibility of awareness) Anesthetic plan and risks discussed with patient. Plan, alternatives, and risks of anesthesia, including , have been explained to and discussed with the patient/legal guardian. By my assessment, the patient/legal guardian understands and agrees. Scenario presented in detail. Questions answered. Plan discussed with CINDER DUMP CRANE OPERATOR. documented in this encounter Plan of Treatment Upcoming Encounters Date Type Department Care Team (Late st Contact Info) Description 07/15/2024 9:00 AM EST Hospital Encounter [facility] Interventional Radiology [address] [facility] [place] [phone] Herve Carrillo MD [address] [facility] [address] [facility] [place] [phone] documented as of this encounter Visit Diagnoses * Transfer of Care - Wilmer Fragoso CRNA - 05/18/2022 4:59 PM EDT Anesthesia Transfer of Care Note Patient: Aiden Oviedo Eh Marques Procedure(s) Performed: Procedure(s): EGD Patient location: Endoscopy PACU Anesthesia type: MAC Airway Device on Arrival to PACU/ICU: Nasal Cannula IV Access: Peripheral Monitors Recommended to be Used During PACU/ICU: Standard Monitors Outstanding Issues to Address: None Level of Consciousness: awake Post vital signs: Vitals: 05/18/22 1650 BP: 175/84 Pulse: Resp: 18 Temp: 98.1 ??F (36.7 ??C) SpO2: 100% Complications: No complications documented. Date 05/17/221499 - 05/18/22658(Not Admitted) 05/18/22 07 - 05/19/22 0659 Shift 7401-5440 2524-4415 24 Hour Total 9230-0467 4694-2620 2343-2548 24 Hour Total INTAKE I.V. 200(1.5) 200(1.5) Volume (mL) (lactated Ringers infusion) 200 200 Shift Total(mL/kg) 200(1.5) 200(1.5) OUTPUT Shift Total(mL/kg) Weight (kg) 133.8 133.8 133.8 133.8 documented in this encounter Administered Medications Inactive Administered Medications - up to 3 most recent administrations Medication Order MAR Action Action Date Dose Rate Site lactated Ringers infusion Intravenous, Continuous - One Step Medications Only, Starting on Mon05/18/22 at 1627, Anesthesia Intra-op New Bag 05/18/2022 4:27 PM EDT lidocaine (PF) 20 mg/mL (2 %) Soln Intravenous, PRN - One Step Medication Only, Starting on Mon05/18/22 at 1631, Anesthesia Intra-op Given 05/18/2022 4:31 PM EDT 60 mg propofol (DIPRIVAN) infusion 10 mg/mL Intravenous, Continuous - One Step Medications Only, Starting on Mon05/18/22 at 1631, Anesthesia Intra-op New Bag 05/18/2022 4:31 PM EDT 125 mcg/kg/min 100.35 mL/hr propofol 10 mg/ml (DIPRIVAN) injection Intravenous, PRN - One Step Medication Only, Starting on Mon05/18/22 at 1631, Anesthesia Intra-op Given 05/18/2022 4:31 PM EDT 100 mg documented in this encounter Additional Health Concerns Assessment Noted Time PHQ-9 Depression Total Score: 0 12/06/19 18 3:00 PM EDT documented as of this encounter Care Teams Fly Raiser Lockstitch Relationship Specialty Start Date End Date Edgar Fournier MD [address] [place] [phone] PCP - General 12/22/21 Maile Valles, JANA Txp Post Coordinator Transplant Hepatology 11/07/17 Jack Ordoñez MD [address] [place] [phone] Consulting Physician Transplant Hepatology 01/05/18 Estephania Sharif, Wilbert Pharmacist Pharmacist 11/11/19 documented as of this encounter
--- OUTSIDE RECORDS SUMMARY | 2024-07-12 12:28 | XMS_ITS | Encounter Summary ---
Author Organization [facility] Address [address] [place] [address] Care Team Providers Care Bronze Plater Name Role Phone Maile Valles RN Unavailable Unavail able Jack Ordoñez MD Unavailable [phone] Estephania Sharif PharmD Unavailable Christine Edgar Tolentino MD Primary Care Provider [phone] Source Comments This information has been disclosed [...] release of HIV test results or diagnoses. [id number] Reason for Visit * Reason Comments Medication Refill Encounter Details Date Type Department Care Team (Late st Contact Info) Description 05/05/2022 Refill [facility] Internal Medicine at [address] [place] [address] Alex De Guzman DO Social [...] PM EDT documented as of this encounter Plan of Treatment Upcoming Encounters Date Type Department Care Team (Late st Contact Info) Description 07/15/2024 9:00 AM EST Hospital Encounter [facility] Interventional Radiology [address] [place] [phone] Herve Carrillo MD [address] [facility] [address] [facility] [place] [phone] documented as of this encounter Visit Diagnoses Not on filedocumented in this encounter Additional Health Concerns Assessment Noted Time PHQ-9 Depression Total Score: 0 12/06/19 18 3:00 PM EDT documented as of this encounter Care Teams Bronze Plater Relationship Specialty Start Date End Date Edgar Fournier MD [address] [place] [address] [place] [address] PCP - General 12/22/21 Maile Valles, JANA Txp Post Coordinator Transplant Hepatology 11/07/17 Jack Ordoñez MD [address] [place] [phone] Consulting Physician Transplant Hepatology 01/05/18 Estephania Sharif, DarrianD Pharmacist Pharmacist 11/11/19 documented as of this encounter
--- OUTSIDE RECORDS SUMMARY | 2024-07-12 12:28 | XMS_ITS | Encounter Summary ---
Author Organization [facility] Address [facility] [place] [address] Care Team Providers Care Adult Services Librarian Name Role Phone Maile Valles RN Unavailable Unavail able Arnold Ordoñez MD Unavailable [phone] Estephania Sharif PharmD Unavailable Christine Edgar Tolentino MD Primary Care Provider [phone] Source Comments This information has been disclosed [...] release of HIV test results or diagnoses. [id number] Reason for Visit * Auth/Cert Specialty Diagnoses / Procedures Referred By Contact Referred To Contact Gastroenterology Diagnoses gastric ulcer Procedures EGD 44237 (CPT??) - HI ESOPHAGOGASTRODUODENOSCOPY TRANSORAL DIAGNOSTIC 78129 (CPT??) - HI EGD TRANSORAL BIOPSY SINGLE/MULTIPLE 05918 (CPT??) - HI EGD REMOVAL TUMOR POLYP/OTHER LESION SNARE TECH [facility] ENDOSCOPY [address] [place] [address] Phone: tel:[phone] Referral ID Status Reason Start Date Expiration Date Visits Re quested Visits Authorized [id number] 1 1 Encounter Details Date Type Department Care Team (Latest Contact Info) Description 05/18/2022 12:49 PM EDT - 05/18/2022 5:47 PM EDT Hospital Encounter [facility] ENDOSCOPY [address] [place] [phone] Arnold Ordoñez MD [address] [place] [phone] Gastric ulcer, unspecified chronicity, unspecified whether gastric ulcer hemorrhage or perforation present Discharge Disposition: Home or Self Care WITHOUT [...] PM EDT documented as of this encounter Last Filed Vital Signs Vital Sign Reading Time Taken Comments Blood Pressure 163/88 05/18/2022 5:20 PM EDT Pulse 79 05/18/2022 2:38 PM EDT Temperature 36.7 ??C (98.1 ??F) 05/18/2022 4:50 PM ED T Respiratory Rate 18 05/18/2022 5:20 PM EDT Oxygen Saturation 94% 05/18/2022 5:20 PM EDT Inhaled Oxygen Concentration 94% 05/18/2022 5 :20 PM EDT Weight 133.8 kg (295 lb) 05/18/2022 2:38 PM EDT Height 175.3 cm (5' 9 ) 05/18/2022 2:38 PM EDT Body Mass Index 43.56 05/18/2022 2:38 PM EDT documented in this encounter Discharge Instructions * Discharge Instructions* Judi Villalba RN - 05/18/2022 5:23 PM EDT [facility] ENDOSCOPY INSTRUCTION/RELEASE FORMS Date: 05/18/2022 Procedure: Procedure(s): EGD IF YOU DEVELOP EXCESSIVE BLEEDING, UNCONTROLLED PAIN OR SHORTNESS OF BREATH, GO TO THE EMERGENCY DEPARTMENT FOR AN EXAMINATION. IF YOU DEVELOP CHILLS, FEVER (greater than 100.5) OR HAVE CONCERNS ABOUT YOUR RECOVERY, CALL Dr. Ordoñez AT [phone]. BECAUSE OF THE SEDATION YOU RECEIVED FOR YOUR PROCEDURE, PLEASE FOLLOW THE INSTRUCTIONS BELOW: You may experience lightheadedness and nausea. Rest today; no strenuous activity. DO NOT: Drink alcoholic beverages today. Make serious financial or legal decisions today. Operate automobiles, heavy machinery or use any appliances today. Diet: Resume your diet as tolerated or recommended by your primary care provider. Medications: The treatment you received today does not change your current medications. New/revised prescriptions given to patient?: No. Side Effects You May Experience: Sore throat. Cramping, gas, bloating, belching. Additional: Follow up with primary care physician at for routine appointment/further testing as needed. Future Appointments Date Time Provider Department Center 06/02/2022 11:00 AM Humza Riley CNP [facility] 06/21/2022 2:40 PM Fermín Schulte MD [facility] All Patient Belongings Have Been Returned: (patient initials) I understand and acknowledge receipt of the above instructions. Patient or Guardian Signature Date/Time Physician's or R.N.'s Signature Date/Time The discharge instructions have been reviewed with the patient and/or Guardian. Patient and/or Guardian signed and retained a printed copy. documented in this encounter Medications at Time [...] meals. And snacks 09/05/19 24 carvediloL (COREG) 12.5 MG tablet Take 1 tablet (12.5 mg total) by mouth 2 times a day with meals. 60 tablet 5 2 06/21/20 cholecalciferol, vitamin D3, 1,250 mcg (50,000 unit) capsule Take 1 capsule by mouth three times weekly on Monday, , and Monday. 2 02/08/20 23 cinacalcet (SENSIPAR) 30 MG tablet Take 1 tablet (30 mg total) by mouth daily with breakfast. 30 tablet 2 02/08/20 23 cycloSPORINE modified (CYCLOSPORINE MODIFIED) 25 MG capsule Take 4 capsules (100 mg total) by mouth 2 times a day. 720 capsule 1 02/21/2022 11:37 AM EDT 2 05/23/20 fenofibrate micronized (LOFIBRA) 134 MG capsule Take [...] scale 3 times daily with meals 07/04/20 isosorbide dinitrate (ISORDIL) 10 MG tablet Take [...] as of this encounter Progress Notes * Latrice Dawson RN - 05/17/2022 10:14 AM EDT Patient confirms procedure on 05/18/22 with 1pm arrival. Staff message to cardiac synchronizer because patient had a 1:30pm appointment on the same day. States that the appointment was not for cardiac clearance and wanted it rescheduled documented in this encounter H&P Notes * Arnold Ordoñez MD - 05/18/2022 4:26 PM EDT [facility] PRE-SEDATION ASSESSMENT, HISTORY & PHYSICAL Date: 05/18/2022 Aiden Stauffer Jr. is a 47 y.o. year old male Pre-Procedure Diagnosis/Procedure Indication: Gastric ulcer Planned Procedure: EGD NPO for solids >8 hours, NPO for [...] ??? ABDOMINAL SURGERY ??? BACK SURGERY 04/2020 [facility] ??? COLONOSCOPY N/A 03/23/2022 Procedure: COLONOSCOPY WITH [...] Start Date End Date Taking? Authorizing Provider ALPRAZolam (XANAX) 0.5 MG tablet Take 0.5 mg by mouth if needed for Sleep. Yes Historical Provider, aspirin 81 MG chewable tablet Chew 1 tablet (81 mg total) by mouth daily with breakfast. 10/17/17 YesMallorlesley Feng CNP calcium acetate,phosphat bind, (PHOSLO) 667 mg capsule Take 667 mg by mouth 3 times a day with meals. Yes Historical Provider, carBAMazepine (TEGRETOL) 200 mg tablet Take 200 mg by mouth 2 times a day. Yes Historical Provider, carvediloL (COREG) 12.5 MG tablet Take 1 tablet (12.5 mg total) by mouth 2 times a day with meals. 05/05/22 Yes Humza Riley CNP cholecalciferol, vitamin D3, 1,250 mcg (50,000 unit) [...] mg total) by mouth2 times a day. 09/16/21 Yes Arnold Ordoñez MD doxazosin (CARDURA) 8 MG tablet Take 8 mg by mouth at bedtime. 05/12/18 Yes Historical Provider, entecavir (BARACLUDE) 0.5 MG tablet Take 1 tablet (0.5 mg total) by mouth every 7 days. 01/05/21 YesArnold Ordoñez MD fenofibrate micronized (LOFIBRA) 134 MG capsule Take [...] times daily with meals Yes Historical Provider, isosorbide dinitrate (ISORDIL) 10 MG tablet 04/29/22 Yes Historical Provider, lisinopriL (PRINIVIL) 40 MG [...] mouth 2 times a day. 02/09/22 Yes Arnold Ordoñez MD NIFEdipine (PROCARDIA-XL) 90 MG (OSM) 24 hr tablet Take 90 mg by mouth 2 times a day. 04/23/18 Yes Historical Provider, ondansetron (ZOFRAN-ODT) 4 MG disintegrating tablet Take 4 mg by mouth every 8 hours as needed. 04/11/18 Yes Historical Provider, pantoprazole (PROTONIX) 40 MG tablet Take 1 tablet (40 mg total) by mouth 2 times a day. 05/06/22 Yes Arnold Ordoñez MD proMETHazine (PHENERGAN) 12.5 MG tablet Take 12.5 mg by mouth every 6 hours as needed. Yes Historical Provider, sevelamer carbonate (RENVELA) 800 mg tablet Take 1,600 mg by mouth 3 times a day with meals. Yes Historical Provider, testosterone cypionate (DEPOTESTOTERONE CYPIONATE) 200 mg/mL injection Inject into the muscle. Yes Historical Provider, VASCEPA 1 gram Cap TAKE 2 Capsule by mouth twice daily 03/08/22 Yes Historical Provider, lidocaine (LIDODERM) 5 % Place 1 patch onto the skin daily as needed. 04/26/21 Historical Provider, polyethylene glycol (MIRALAX) 17 gram packet Take 17 g by mouth daily as needed (mild constipation (no BM for 24 hrs)). 06/25/20 Jake Zavala MD Allergies: Tacrolimus Codeine Sulfate Codeine Abbreviated Review of Systems (ROS) Chest Pain: no Shortness of Breath/Dyspnea or Exertion: no Recent URI: no Airway, ASA Score & Sedation Specific History Concerns Mallampati: III Mouth Opening: > 4 cm Facial Hair: No Short Neck: No ASA Score: III - Moderate systematic disease with functional limitations Sedation-Specific History Concerns: None This patient was re-evaluated immediately prior to sedation administration. Focused Physical Exam: Height ; Weight ; BMI Body mass index is 43.56 kg/m??. Vitals: 05/18/22 1438 BP: 168/89 Pulse: 79 Resp: 18 Temp: 97.3 ??F (36.3 ??C) SpO2: 90% Neuro: Normal Cardiovascular: Normal Respiratory: Normal Sedation Plan: MAC Antibiotic prophylaxis is not indicated. documented in this encounter Procedure Notes * Arnold Ordoñez MD - 05/18/2022 4:26 PM EDT [id number] Procedure Date: 05/18/2022 4:26 PM Patient Name: Aiden Stauffer Date of : 1975 Admit Type: Ambulatory Age: 47 Gender: Male Note Status: Finalized Attending MD: ARNOLD ORDOÑEZ MD Procedure: Upper GI endoscopy Indications: Follow-up of peptic ulcer Providers: ARNOLD ORDOÑEZ MD Referring MD: Edgar Fournier Medicines: Monitored Anesthesia Care Complications: No immediate complications. Procedure: Pre-Anesthesia Assessment: - Prior to the procedure, a History and Physical was performed, and patient medications and allergies were reviewed. The patient is competent. The risks and benefits of the procedure and the sedation options and risks were discussed with the patient. All questions were answered and informed consent was obtained. Patient identification and proposed procedure were verified by the physician, the nurse and the anesthesiologist in the pre-procedure area in the procedure room. Mental Status Examination: alert and oriented. Airway Examination: normal oropharyngeal airway and neck mobility. Respiratory Examination: clear to auscultation. CV Examination: normal. Prophylactic Antibiotics: The patient does not require prophylactic antibiotics. Prior Anticoagulants: The patient has taken no anticoagulant or antiplatelet agents. ASA Grade Assessment: III - A patient with severe systemic disease. After reviewing the risks and benefits, the patient was deemed in satisfactory condition to undergo the procedure. The anesthesia plan was to use monitored anesthesia care (MAC). Immediately prior to administration of medications, the patient was re-assessed for adequacy to receive sedatives. The heart rate, respiratory rate, oxygen saturations, blood pressure, adequacy of pulmonary ventilation, and response to care were monitored throughout the procedure. The physical status of the patient was re-assessed after the procedure. After obtaining informed consent, the endoscope was passed under direct vision. Throughout the procedure, the patient's blood pressure, pulse, and oxygen saturations were monitored continuously. The was introduced through the mouth, and advanced to the second part of duodenum. The upper GI endoscopy was accomplished without difficulty. The patient tolerated the procedure well. Findings: The examined esophagus was normal. Localized mildly erythematous mucosa without bleeding was found in the gastric antrum. There is no endoscopic evidence of ulceration in the stomach. The examined duodenum was normal. Estimated Blood Loss: Estimated blood loss: none. Impression: - Normal esophagus. - Erythematous mucosa in the antrum. - Normal examined duodenum. - No specimens collected. Recommendation: - Patient has a contact number available for emergencies. The signs and symptoms of potential delayed complications were discussed with the patient. Return to normal activities tomorrow. Written discharge instructions were provided to the patient. - Discharge patient to home (ambulatory). - Resume previous diet. - Continue present medications. - Return to referring physician as previously scheduled. Procedure Code(s): --- Professional --- 45365, Esophagogastroduodenoscopy, flexible, transoral; diagnostic, including collection of specimen(s) by brushing or washing, when performed (separate procedure) Diagnosis Code(s): --- Professional --- K31.89, Other diseases of stomach and duodenum K27.9, Peptic ulcer, site unspecified, unspecified as acute or chronic, without hemorrhage or perforation CPT copyright 2020 [employer]. All rights reserved. The codes documented in this report are preliminary and upon medical records coder review may be revised to meet current compliance requirements. Attending Participation: I personally performed the entire procedure. Arnold Ordoñez MD ARNOLD ORDOÑEZ MD 05/18/2022 5:16:56 PM This report has been signed electronically.ARNOLD ORDOÑEZ MD Total Procedure Duration Time 0 hours 3 minutes 31 seconds Scope In: 4:34:41 PM Scope Out: 4:38:[address] [place] [address], [facility] documented in this encounter Plan of Treatment Upcoming Encounters Date Type Department Care Team (Late st Contact Info) Description 07/15/2024 9:00 AM EST Hospital Encounter [facility] Interventional Radiology [address] [place] [phone] Herve Carrillo MD [address] [place] [address] [address] [facility] [place] [address] documented as of this encounter Procedures Procedure Name Priority Date/Time Associated Diagnosis Comments ELUTION & ANTIBODY IDENTIFICATION, RBC Routine 05/18/2022 10:04 PM EDT ANTIBODY IDENTIFICATION Routine 05/18/2022 10:04 PM EDT ELIUD ANTI-IGG Routine 05/18/2022 10:01 PM EDT UPPER GI ENDOSCOPY Routine 05/18/2022 4: 26 PM EDT EGD EGD/Sm Bowel 05/18/2022 4:26 PM EDT Gastric ulcer POC GLU MONITORING DEVICE Routine 05/18/2022 3:51 PM EDT ABO/RH STAT 05/18/2022 3:40 PM EDT ANTIBODY SCREEN STAT 05/18/2022 3:40 PM EDT POC GLU MONITORING DEVICE Routine 05/18/2022 2:50 PM EDT RENAL FUNCTION PANEL W/EGFR STAT 05/18/2022 2:46 PM EDT CBC STAT 05/18/2022 2:46 PM EDT POTASSIUM, BLOOD GAS Routine 05/18/2022 2:41 PM EDT documented in this encounter Results * Elution & antibody identification, RBC (05/18/2022 10:04 PM EDT) Elution Result 1 Negative with all cells tested 05/18/2022 10:04 PM EDT [facility] Comment:All othr clin signif alloab ruled out at this time Blood 05/18/2022 10:0 4 PM EDT 05/18/2022 10:04 PM EDT us Jordin Kaur DO BLOOD BANK TEST ORDERABLES Yoselin margaret Result [facility] [address] [place] [address] * Antibody identification (05/18/2022 10:04 PM EDT) Antibody Id. #1 Anti-C 05/18/2022 10:04 PM EDT [facility] Antibody Id. #2 Anti-D 05/18/2022 10:04 PM EDT [facility] Blood 05/18/2022 10:0 4 PM EDT 05/18/2022 10:04 PM EDT Jordin Kaur DO BLOOD BANK TEST ORDERABLES Yoselin l Result Performing Organization Address City/[facility]/ZIP Co de Phone Number [facility] [address] [place] [address] * ELIUD Anti-IgG (05/18/2022 10:01 PM EDT) ELIUD IgG Positive 05/18/2022 10:01 PM EDT [facility] Blood 05/18/2022 10:0 1 PM EDT 05/18/2022 10:01 PM EDT Jordin Kaur DO BLOOD BANK TEST ORDERABLES Yoselin l Result Performing Organization Address [facility] Co de Phone Number [facility] [address] [place] [address] * UPPER GI ENDOSCOPY (05/18/2022 4:26 PM EDT) 05/18/2022 4:26 PM EDT Narrative [facility] - 05/18/2022 5:17 PM EDT [id number] Procedure Date: 05/18/2022 4:26 PM ? Patient Name: Aiden Stauffer ? Date of : 1975 ?Admit Type: Ambulatory Age: 47 ? Gender: Male Note Status: Finalized ?Attending MD: ARNOLD ORDOÑEZ MD Procedure: ? Upper GI endoscopy Indications: ? Follow-up of peptic ulcer Providers: ? ARNOLD ORDOÑEZ MD Referring MD: ?Edgar Fournier Medicines: ? Monitored Anesthesia Care Complications: ? [...] were ? verified by the physician, the nurse and the ? anesthesiologist in the pre-procedure area in the ? procedure room. Mental Status Examination: alert and ? oriented. Airway Examination: normal oropharyngeal ? airway and neck mobility. Respiratory Examination: ? clear to auscultation. CV Examination: normal. ? Prophylactic Antibiotics: The patient does not require ? prophylactic antibiotics. Prior Anticoagulants: The ? patient has taken no anticoagulant or antiplatelet ? agents. ASA Grade Assessment: III - A patient with ? severe systemic disease. After reviewing the risks and ? benefits, the patient was deemed in satisfactory ? condition to undergo the procedure. The anesthesia ? plan was to use monitored anesthesia care (MAC). ? Immediately prior to administration of medications, ? the patient was re-assessed for adequacy to receive ? sedatives. The heart rate, respiratory rate, oxygen ? saturations, blood pressure, adequacy of pulmonary ? ventilation, and response to care were monitored ? throughout the procedure. The physical status of the ? patient was re-assessed after the procedure. ? After obtaining informed consent, the endoscope was ? passed under direct vision. Throughout the procedure, ? the patient's blood pressure, pulse, and oxygen ? saturations were monitored continuously. The was ? introduced through the mouth, and advanced to the ? second part of duodenum. The upper GI endoscopy was ? accomplished without difficulty. The patient tolerated ? the procedure well. ? Findings: ? The examined esophagus was normal. ? Localized mildly erythematous mucosa without bleeding was found in the ? gastric antrum. ? There is no endoscopic evidence of ulceration in the stomach. ? The examined duodenum was normal. ? Estimated Blood Loss: ? Estimated blood loss: none. Impression: ?- Normal esophagus. ? - Erythematous mucosa in the antrum. ? - Normal examined duodenum. ? - No specimens collected. Recommendation: ?- Patient has a contact number available for ? emergencies. The signs and symptoms of potential ? delayed complications were discussed with the patient. ? Return to normal activities tomorrow. Written ? discharge instructions were provided to the patient. ? - Discharge patient to home (ambulatory). ? - Resume previous diet. ? - Continue present medications. ? - Return to referring physician as previously ? scheduled. ? Procedure Code(s): ? --- Professional --- ? 91075, Esophagogastroduodenoscopy, flexible, ? transoral; diagnostic, including collection of ? specimen(s) by brushing or washing, when performed ? (separate procedure) Diagnosis Code(s): ? --- Professional --- ? K31.89, Other diseases of stomach and duodenum ? K27.9, Peptic ulcer, site unspecified, unspecified as ? acute or chronic, without hemorrhage or perforation CPT copyright 2020 [employer]. All rights reserved. The codes documented in this report are preliminary and upon medical records coder review may be revised to meet current compliance requirements. Attending Participation: ? I personally performed the entire procedure. ? Arnold Ordoñez MD ARNOLD ORDOÑEZ MD 05/18/2022 5:16:56 PM This report has been signed electronically.ARNOLD ORDOÑEZ MD Total Procedure Duration Time 0 hours 3 minutes 31 seconds Scope In: 4:34:41 PM Scope Out: 4:38:12 PM ? [address] [place], [place], [facility] us Edgar Fournier MD PROCEDURE/MINOR SURGICAL ORDE RABLES Final Result [facility] [address] [place] [address] * POC Glucose Monitoring Device (05/18/2022 3:51 PM EDT) POC Glucose Monitoring Device 90 70 - 100 mg/dL 05/18/2022 3:52 PM EDT [facility] Blood 05/18/2022 3:51 PM EDT 05/18/2022 3:51 PM EDT us Arnold Ordoñez MD POINT OF CARE TEST ORDERABLES Final Result Performing Organization Address [facility] Co de Phone Number [facility] [address] [place] [address] * Antibody Screen (05/18/2022 3:40 PM EDT) Antibody Screen Positive 05/18/2022 4:35 PM EDT [facility] Blood 05/18/2022 3:40 PM EDT 05/18/2022 3:57 PM EDT Narrative [facility] - 05/18/2022 4:58 PM EDT Testing performed by [facility] Transfusion Service Jordin Kaur DO BLOOD BANK TEST ORDERABLES Yoselin l Result Performing Organization Address [facility]/ZIP Co de Phone Number [facility] [address] [place] [address] * ABO/Rh (05/18/2022 3:40 PM EDT) ABO Grouping O 05/18/2022 4:23 PM EDT [facility] Rh Type Negative 05/18/2022 4:23 PM EDT [facility] Blood 05/18/2022 3:40 PM EDT 05/18/2022 3:57 PM EDT Jordin Kaur DO BLOOD BANK TEST ORDERABLES Yoselin l Result [facility] [address] * POC Glucose Monitoring Device (05/18/2022 2:50 PM EDT) POC Glucose Monitoring Device 91 70 - 100 mg/dL 05/18/2022 2:51 PM EDT [facility] Blood 05/18/2022 2:50 PM EDT 05/18/2022 2:50 PM EDT Arnold Ordoñez MD POINT OF CARE TEST ORDERABLES Final Result Performing Organization Address City/[facility]/ZIP Co de Phone Number [facility] [address] * (ABNORMAL) Renal Function Panel w/EGFR (05/18/2022 2:46 PM EDT) Sodium 144 133 - 146 mmol/L 05/18/2022 4:50 PM EDT [facility] Potassium 3.9 3.5 - 5.3 mmol/L 05/18/2022 4:50 PM EDT [facility] Chloride 98 98 - 110 mmol/L 05/18/2022 4:50 PM EDT [facility] CO2 33 21 - 33 mmol/L 05/18/2022 4:50 PM EDT [facility] Anion Gap 13 3 - 16 mmol/L 05/18/2022 4:50 PM EDT [facility] BUN 27(H) 7 - 25 mg/dL 05/18/2022 4:50 PM EDT [facility] Creatinine 5.29(H) 0.60 - 1.30 mg/dL 05/18/2022 4:50 PM EDT [facility] Glucose 80 70 - 100 mg/dL 05/18/2022 4:50 PM EDT [facility] Calcium 9.4 8.6 - 10.3 mg/dL 05/18/2022 4:50 PM EDT [facility] Phosphorus 3.4 2.1 - 4.7 mg/dL 05/18/2022 4:50 PM EDT [facility] Albumin 4.0 3.5 - 5.7 g/dL 05/18/2022 4:50 PM EDT [facility] Osmolality, Calculated 302 278 - 305 mOsm/kg 05/18/2022 4:50 PM EDT [facility] EGFR 13 05/18/2022 4:50 PM EDT [facility] Comment:As of 2021, the estimated [...] Disease. Am J Kidney Dis. 2020. Plasma 05/18/2022 2:46 PM EDT 05/18/2022 4:02 PM EDT us Jordin Kaur DO LAB BLOOD ORDERABLES Final Resu lt [facility] [address] [place] [id number] * (ABNORMAL) CBC (05/18/2022 2:46 PM EDT) WBC 4.2 3.8 - 10.8 10E3/uL 05/18/2022 4:23 PM EDT [facility] RBC 2.90(L) 4.20 - 5.80 10E6/uL 05/18/2022 4:23 PM EDT [facility] Hemoglobin 9.1(L) 13.2 - 17.1 g/dL 05/18/2022 4:23 PM EDT [facility] Hematocrit 27.9(L) 38.5 - 50.0 % 05/18/2022 4:23 PM EDT [facility] MCV 96.4 80.0 - 100.0 fL 05/18/2022 4:23 PM EDT [facility] MCH 31.3 27.0 - 33.0 pg 05/18/2022 4:23 PM EDT [facility] MCHC 32.5 32.0 - 36.0 g/dL 05/18/2022 4:23 PM EDT [facility] RDW 14.1 11.0 - 15.0 % 05/18/2022 4:23 PM EDT [facility] Platelets 241 140 - 400 10E3/uL 05/18/2022 4:23 PM EDT [facility] MPV 7.3(L) 7.5 - 11.5 fL 05/18/2022 4:23 PM EDT [facility] Whole Blood 05/18/2022 2:46 PM EDT 05/18/2022 4:02 PM EDT us Jordin Kaur DO LAB BLOOD ORDERABLES Final Resu lt Performing Organization Address City/[facility]/ZIP Co de Phone Number [facility] [address] [place] [address] * Potassium, Blood Gas (05/18/2022 2:41 PM EDT) Potassium, Blood Gas 3.9 3.5 - 5.3 mEq/L 05/18/2022 3:02 PM EDT [facility] Blood, Arterial 05/18/2022 2 :41 PM EDT 05/18/2022 3:01 PM EDT Jordin Kaur DO LAB BLOOD ORDERABLES Final Resu lt Performing Organization Address [facility]/ZIP Co de Phone Number [facility] [address] [place] [address] documented in this encounter Visit Diagnoses Diagnosis Gastric ulcer, unspecified chronicity, unspecified whether gastric ulcer hemorrhage or perforation present documented in this encounter Administered Medications Inactive Administered Medications - up to 3 most recent administrations Medication Order MAR Action Action Date Dose Rate Site dextrose 10%-water (D10W) IV soln 12.5 g, Intravenous, Every 15 min PRN, Low blood sugar, for glucose < 70 and alert but can not be corrected, orally or via feeding tube, Starting on Mon05/18/22 at 1515, Recheck blood sugar in 15 minutes and repeat treatment if glucose still < 70. For Smart Pump: Set volume to be infused; 125 ml for 12.5 grams or 250 mL for 25 grams., Pre-op dextrose 10%-water (D10W) IV soln 25 g, Intravenous, Every 15 min PRN, Low blood sugar, for glucose < 70 and not alert, Starting on Mon05/18/22 at 1515, Recheck glucose in 15 minutes and repeat treatment if glucose still < 70. For Smart Pump: Set volume to be infused; 125 ml for 12.5 grams or 250 mL for 25 grams., Pre-op sodium chloride 0.9 % infusion 50 mL/hr, Intravenous, Continuous, Starting on Mon05/18/22 at 1500, Pre-procedure(GI)Indications:Gastric ulcer, unspecified chronicity, unspecified whether gastric ulcer hemorrhage or perforation present documented in this encounter Active and Recently Administered Medications Times are shown in EDT. Scheduled Medication Order 05/16/2022 05/17/2022 05/18/2022 insulin lispro (humaLOG) injection 0-4 Units 0-4 Units, Subcutaneous, Every 2 hours, First dose on Mon05/18/22 at 1600, Administer 1 units for BG 180-199, 2 units for BG 200-249, 3 units for BG 250-299 or 4 units for BG greater than or equal to 300. Administer in SDS or OR. Onset of action is rapid. Give dose 5-10 minutes before meal. Have meal at bedside., Pre-op 1600 (Due) Continuous Medication Order 05/16/2022 05/17/2022 05/18/2022 sodium chloride 0.9 % infusion 50 mL/hr, Intravenous, Continuous, Starting on Mon05/18/22 at 1500, Pre-procedure(GI) 1500 (Due) PRN Medication Order 05/16/2022 05/17/2022 05/18/2022 dextrose 10%-water (D10W) IV soln(Linked Group 1) 12.5 g, Intravenous, Every 15 min PRN, Low blood sugar, for glucose < 70 and alert but can not be corrected, orally or via feeding tube, Starting on Mon05/18/22 at 1515, Recheck blood sugar in 15 minutes and repeat treatment if glucose still < 70. For Smart Pump: Set volume to be infused; 125 ml for 12.5 grams or 250 mL for 25 grams., Pre-op dextrose 10%-water (D10W) IV soln(Linked Group 1) 25 g, Intravenous, Every 15 min PRN, Low blood sugar, for glucose < 70 and not alert, Starting on Mon05/18/22 at 1515, Recheck glucose in 15 minutes and repeat treatment if glucose still < 70. For Smart Pump: Set volume to be infused; 125 ml for 12.5 grams or 250 mL for 25 grams., Pre-op Linked Groups Order Group 1: dextrose 10%-water (D10W) IV solnJump to med 12.5 g, Intravenous, Every 15 min PRN, Low blood sugar, for glucose < 70 and alert but can not be corrected, orally or via feeding tube, Starting on Mon05/18/22 at 1515, Recheck blood sugar in 15 minutes and repeat treatment if glucose still < 70. For Smart Pump: Set volume to be infused; 125 ml for 12.5 grams or 250 mL for 25 grams., Pre-op Or dextrose 10%-water (D10W) IV solnJump to med 25 g, Intravenous, Every 15 min PRN, Low blood sugar, for glucose < 70 and not alert, Starting on Mon05/18/22 at 1515, Recheck glucose in 15 minutes and repeat treatment if glucose still < 70. For Smart Pump: Set volume to be infused; 125 ml for 12.5 grams or 250 mL for 25 grams., Pre-op documented in this encounter Additional Health Concerns Assessment Noted Time PHQ-9 Depression Total Score: 0 12/06/19 18 3:00 PM EDT documented as of this encounter Care Teams Adult Services Librarian Relationship Specialty Start Date End Date Edgar Fournier MD [address] [place] [address] [place] [phone] PCP - General 12/22/21 Maile Valles, RN Txp Post Coordinator Transplant Hepatology 11/07/17 Arnold Ordoñez MD [address] [place] [phone] Consulting Physician Transplant Hepatology 01/05/18 Estephania Sharif, DarrianD Pharmacist Pharmacist 11/11/19 documented as of this encounter
--- OUTSIDE RECORDS SUMMARY | 2024-07-12 12:28 | XMS_ITS | Encounter Summary ---
Author Organization [facility] Address [address] [place] [address] Care Team Providers Care Licensed Land Surveyor Name Role Phone Maile Valles RN Unavailable Unavail able Jack Ordoñez MD Unavailable [phone] Estephania Sharif PharmD Unavailable Christine Edgar Tolentino MD Primary Care Provider [phone] Source Comments This information has been disclosed [...] release of HIV test results or diagnoses. [id number] Health Encounter Details Date Type Department Care Team (Late st Contact Info) Description 05/09/2022 Chart Note [facility] Advanced [facility] Failure at [facility] [address] [facility] [address] [place] [address] Humza Riley CNP Pre-Operative Cardiac Evaluation Social History Tobacco Use Types Packs/Day Years [...] Progress Notes * Humza Riley CNP - 05/09/2022 1:27 PM EDT Pre-Operative Cardiac Evaluation The patient was seen in my office for cardiac evaluation before EGD. Patient is a class IV risk from a cardiovascular standpoint according to the revised cardiac risk index and has a 15% 30 day risk of , ID, or cardiac arrest. Risk related to: CHF history, pre-op treatment with insulin, pre-op creatinine > 2mg/dL Additional risk related to severe pulmonary hypertension, Patient will be more susceptible to fluidshifts Recommendation/Comments: Recommend targeting lower dry weight at dialysis prior to procedure Recommend to hold MADAN/ARB/ARNI at least 48 hours prior to procedure to avoid hypotension Aggressive postoperative pulmonary rehabilitation: Yes Aggressive perioperative DVT prophylaxis: Yes Early ambulation as permitted by surgical procedure: Yes Please schedule a postoperative visit at our clinic: No Please call with further questions or concerns: [phone] Continue beta chelle therapy with goal HR less than 70: Yes General anesthesia avoidance if possible: Yes Cardiac anesthesia perioperative management: Yes See results of: Left Heart Cath Narrative & Impression ?? *[facility]* [facility] [address] [place], [place] [address] ?? CATHETERIZATION LAB STUDY ?? Patient: Aiden Stauffer Age: 47 Study Date: 04/25/2022 Gender: M Study Time: 02:37:04 PM : 1975 HT/WT: 175.3cm / 131.8kg ?? Performing Physician: Jasmine Smith MD Ordering Physician: Fermín Schulte MD Referring Physician: Humza Riley Fellow: Jasmine Smith MD ?? Procedures performed: ?? - Left coronary angiography. - Right coronary angiography. - Left heart catheterization. ?? IMPRESSIONS: ?? 1. Normal coronary arteries. 2. Non-ischemic cardiomyopathy. 3. Elevated left sided filling pressures. 4. Uncontrolled hypertension. ?? RECOMMENDATIONS: Further care of volume control and valvular cardiomyopathy per primary inpatient team. ?? INDICATIONS: Congestive heart failure. Heart Failure Systolic (I50.20). ?? PROCEDURE IN DETAIL: Study status: Cardiac cath: elective. Consent: The risks, benefits, and alternatives to the procedure and sedation were explained to the patient and informed consent was obtained. Location: Catheterization laboratory. PROCEDURE: ?? 1. Initial setup. The patient was brought to the laboratory in a fasting state. Surface ECG leads, blood pressure measurements, and pulse oximetric signals were monitored. 2. Skin preparation. The planned puncture sites were prepped and draped in the usual sterile manner. 3. Right radial artery access. A 2gb75kh glidesheath - slender - .021 sheath was advanced into the vessel. 4. Selective left coronary angiography. A [id number] tig 4.0 catheter was introduced. Contrast was injected. Images were obtained using multiple projections. 5. Selective right coronary angiography. A [id number] tig 4.0 catheter was introduced. Contrast was injected. Images were obtained using multiple projections. 6. Left heart catheterization. 7. Right radial artery hemostasis. The sheath was removed. Vessel closure was achieved with a lrg tr band l device. 8. Sedation. The procedure was performed using moderate (conscious) sedation under my personal supervision. A trained, dedicated, and qualified observer monitored the patient. The following parameters were monitored: oxygen saturation, heart rate, blood pressure, respiratory rate, adequacy of pulmonary ventilation, and response to care. Sedation and monitoring were provided for greater than 15 minutes. ?? STUDY COMPLETION: The patient tolerated the procedure well. There were no complications. Contrast: Omnipaque 350 55ml (total dose). Omnipaque 350 45ml (wasted). ?? CORONARY ARTERIES: The coronary circulation is right dominant. The left main trifurcates into the LAD, a ramus intermedius, and the left circumflex. The left anterior descending gives rise to 1 diagonal. The left circumflex gives rise to 2 obtuse marginals. The right coronary gives rise to the posterior descending artery, 1 RV marginal, and 1 posterolateral. Left main: Patent. Normal-sized. ASHA grade 3 flow (brisk flow). LAD: Patent. Normal-sized. ASHA grade 3 flow (brisk flow). Ramus intermedius: Patent. Normal-sized. ASHA grade 3 flow (brisk flow). Left circumflex: Patent. Normal-sized. ASHA grade 3 flow (brisk flow). Right coronary: Patent. Normal-sized. ASHA grade 3 flow (brisk flow). ?? Hemodynamics: Circulatory function: ?? + + + !Stage description !Condition 1 - ! + + + !LV pressure s/d, ed !155/14, 38, dP/jm=2208cy Hg/s! + + + !Aortic pressure s/d (m)!153/70 (113) ! + + + ?? ATTESTATION: Dr. Fermín Schulte was present for the entire procedure. Dr. Jasmine Smith was the initial author of this report. ?? Prepared and electronically signed by ?? Jasmine Smith MD [id number] This result has not been signed. Information might be incomplete. Specimen Collected: 04/25/22 ??2:37 PM Last Resulted: 04/25/22 ??6:58 PM Right Heart Cath Narrative & Impression ?? *[facility]* [address] [place], [place] [address] ?? CATHETERIZATION LAB STUDY ?? Patient: Aiden Stauffer Age: 47 Study Date: 03/18/2022 Gender: M Study Time: 08:23:04 AM : 1975 HT/WT: 175.3cm / 135.9kg ?? Performing Physician: Oliver Reed MD Ordering Physician: Wilmer Hernandez MD Referring Physician: Mandi Mora Fellow: MD Sylvain Santana MD ?? Procedures performed: ?? - Right heart catheterization. ?? IMPRESSIONS: ?? 1. Markedly elevated biventricular pressures. 2. Severe pulmonary hypertension. 3. Preserved cardiac index and output. 4. Jakin Sutured in at 57cm. ?? RECOMMENDATIONS: ?? 1. Results discussed with cardiology consult team who recommended leave in Jakin and further optimization under the care of the CVICU team. 2. Standard post procedural CXR. ?? INDICATIONS: Shortness of breath. Congestive heart failure. Heart Failure Systolic (I50.20). ?? PROCEDURE IN DETAIL: Study status: Cardiac cath: elective. Consent: The risks, benefits, and alternatives to the procedure and sedation were explained to the patient and informed consent was obtained. Location: Catheterization laboratory. PROCEDURE: ?? 1. Initial setup. The patient was brought to the laboratory. Surface ECG leads, blood pressure measurements, and pulse oximetric signals were monitored. 2. Skin preparation. The planned puncture sites were prepped and draped in the usual sterile manner. 3. Supplemental oxygen. Oxygen, 2L/min was administered throughout the procedure. 4. Right internal jugular vein access. A 4f DwellGreen mini access kit sheath was advanced into the vessel. 5. Sheath exchange. The sheath was exchanged for a 5bn65fy pinnacle sheath. 6. Right heart catheterization. A 7f catheter, swan-viviana td catheter was advanced via the access site into the right atrium, right ventricle, pulmonary artery and wedge position under fluoroscopic guidance. 7. Sedation. The procedure was performed using moderate (conscious) sedation under my personal supervision. A trained, dedicated, and qualified observer monitored the patient. The following parameters were monitored: oxygen saturation, heart rate, blood pressure, respiratory rate, adequacy of pulmonary ventilation, and response to care. Sedation and monitoring were provided for greater than 15 minutes. ?? STUDY COMPLETION: All catheters inserted during the procedure were removed. The patient tolerated the procedure well. There were no complications. ? Hemodynamics: Circulatory function: ?? + + + + !Stage description !Condition 1 - Abelino !Condition 1 - Thermo ! + + + + !O2 uptake, hemoglobin !Hgb: 8.33g/dl !Hgb: 8.33g/dl ! + + + + !Cardiac output (Qs) !10.8L/min !10.1L/min ! + + + + !Cardiac index !4.41L/(min-m^2) !4.12L/(min-m^2) ! + + + + !HR, R-R, stroke volume !73bpm, 148ml !72bpm, 140ml ! + + + + !RA pressure a/v (m) !25/25 (25) !25 (25) ! + + + + !RV pressure s/d, ed !60/15, 15 !60/15, 15 ! + + + + !PA wedge a/v (m) !30/30 (30) !30/30 (30) ! + + + + !MPA pressure s/d (m) !60/23 (40) !60/23 (40) ! + + + + !Aortic pressure s/d (m) !185/91 (122) !185/91 (122) ! + + + + !SVR !718dyn-sec/cm5 !768dyn-sec/cm5 ! + + + + !SVRI !1871enm-lbg-j^2/cm5 !1006ido-hzg-o^2/cm5 ! + + + + !PVR !74dyn-sec/cm5 !79dyn-sec/cm5 ! + + + + !PVRI !047kiz-qhd-s^2/cm5 !195cud-vbb-p^2/cm5 ! + + + + !Total systemic resistance!903dyn-sec/cm5, 2196lku-bwx-b^2/cm5!966dyn-sec/cm5, 9204mlb-vtm-s^2/cm5! + + + + ?? Saturations: ?? + + + !Stage description !Condition 1 -! + + + !Saturation, RA !71% ! + + + !Saturation, PA/MPA!68% ! + + + !Saturation, aorta !93% ! + + + ?? SUMMARY: Elevated filling pressures, preserved CO/CI. ?? ATTESTATION: Dr. Oliver Reed was present for the entire procedure. Dr. Gabriel Booth was the initial author of this report. ?? Prepared and electronically signed by ?? Oliver Reed MD [id number] Specimen Collected: 03/18/22 ??8:23 AM Last Resulted: 03/19/22 ??7:58 AM Echo Narrative ?* [facility]* ?[address] ? [place] [address] ? [phone] Transesophageal Echocardiography Patient: ?Aiden Stauffer MR #: ? [id number] Account: Study Date: 04/26/2022 Gender: ? M Age: ?47 : ?1975 Room: ? [facility] ??REFERRING ?Humza Riley ??FELLOW ? Fortino Osborn MD ??FELLOW ? Mukul Schuler MD ??PERFORMING ?? Zane Coulter MD ??READING ?Fortino Osborn MD ??PLUMBING INSTALLER ??Ashish Sheldon ??ORDERING ? Humza Riley ??REFERRING ?Humza Riley ??ATTENDING ?Humza Riley Procedure:ECHO SOCRATES (TRANSESOPHAGEAL) ?Order: Indications: ?Mitral valve vegetatioin (I33.0). Study data: ??Height: 69in. 175.3cm. Weight: 290lb. 131.8kg. Comparison was made to the study of 03/17/2022. ??Study status: Routine. ??Consent: ??The risks, benefits, and alternatives to the procedure were explained to the patient and informed consent was obtained. ??Procedure: ??Initial setup. The patient was brought to the laboratory in the fasting state. Intravenous access was obtained. Surface ECG leads and pulse oximetric signals were monitored. Sedation. Sedation was administered by anesthesiology staff. Transesophageal echocardiography. Topical anesthesia was obtained using viscous lidocaine. An adult multiplane transesophageal probe was inserted by the brick molder hand under direct supervision of the attending livestock counter. Image quality was good. The transesophageal probe was removed. ??Study completion: All IVs inserted during the procedure were removed. The patient tolerated the procedure well. There were no complications. Diagnostic transesophageal echocardiography. ??2D, complete spectral Doppler, and color Doppler. ??Birthdate: ??Patient birthdate: 1975. ??Age: ??Patient is 47yr old. ??Sex: ?? gender: male. Body mass index: ??BMI: 42.9kg/m^2. ??Body surface area: ?BSA: 2.6m^2. ??Patient status: ??Outpatient. ??Study date: ??Study date: 04/26/2022. Study time: 02:08 PM. ??Location: ??EP Lab. Study Conclusions - Left ventricle: Systolic function was mildly reduced. - Aortic valve: Left coronary cusp mobility was restricted. There is no evidence of a vegetation. ?Trivial regurgitation. - Mitral valve: There is no evidence of a vegetation. - Left atrium: The atrium is dilated. There is no evidence of a thrombus in the atrial cavity or ?appendage. Low emptying velocities. - Right ventricle: Systolic function was normal. - Right atrium: There is no evidence of a thrombus in the atrial cavity or appendage. - Tricuspid valve: There is no evidence of a vegetation. Moderate regurgitation. - Pulmonic valve: There is no evidence of a vegetation. Impressions: ??There is no vegetation. The mass seen in a small calcification at the annulus. While all structures were visualized, the study was terminate prematurely due to patient instability from hypoxia. Cardiac Anatomy Left ventricle: - Systolic function was mildly reduced. Aorta: - The aorta was poorly visualized and mildly calcified. Aortic valve: - Trileaflet. Left coronary cusp mobility was restricted. There is no evidence of a vegetation. Doppler: - Trivial regurgitation. Mitral valve: - Structurally normal valve. There is no evidence of a vegetation. There is a 5 mm fixed ?calcification on the anteroseptal portion of the annulus. Doppler: - Trivial regurgitation. Left atrium: - The atrium is dilated. There is no evidence of a thrombus in the atrial cavity or appendage. Low ?emptying velocities. Right ventricle: - The cavity size is normal. Wall thickness is normal. Systolic function was normal. Pulmonic valve: - The valve appears to be grossly normal. There is no evidence of a vegetation. Tricuspid valve: - Structurally normal valve. There is no evidence of a vegetation. Doppler: - Moderate regurgitation. Right atrium: - The atrium is normal in size. There is no evidence of a thrombus in the atrial cavity or ?appendage. I personally reviewed the images and agree with the interpretation of the resident. ?Reviewed and confirmed by Zane Coulter MD [id number] Specimen Collected: 04/26/22 ??2:08 PM Last Resulted: 04/26/22 ??5:30 PM Narrative ?* [facility]* ?[address] [facility] ? [place] [address] ? [phone] Transthoracic Echocardiography Patient: ?Aiden Stauffer MR #: ? [id number] Account: Study Date: 03/17/2022 Gender: ? M Age: ?47 : ?1975 Room: ? [facility] ??FELLOW ? Dontae Hawkins MD ??PERFORMING ?? Vinod Stokes MD ??READING ?Dontae Hawkins MD ??PLUMBING INSTALLER ??Ashish Sheldon ??ORDERING ? Mandi Mora ??REFERRING ?Mandi Mora ??ATTENDING ?Kelsey Carcamo ??ADMITTING ?Kelsey Carcamo Procedure:ECHO 2D COMPLETE (TTE) ?Order: Indications: ?Heart Failure Systolic (I50.20). Study data: ??Height: 69in. 175.3cm. Weight: 298.3lb. 135.6kg. Comparison was made to the study of 06/01/2020. ??Study status: Routine. ??Procedure: ??Transthoracic echocardiography. Image quality was good. Scanning was performed from the parasternal, apical, and subcostal acoustic windows. ?Transthoracic echocardiography. ??M-mode, complete 2D, complete spectral Doppler, and color Doppler. ??Birthdate: ??Patient birthdate: 1975. Age: ??Patient is 47yr old. ??Sex: ?? gender: male. ??Body mass index: ??BMI: 44.1kg/m^2. ??Body surface area: ?BSA: 2.64m^2. Blood pressure: ? 141/80 ??Patient status: ??Inpatient. ??Study date: ??Study date: 03/17/2022. Study time: 01:17 PM. ??Location: Bedside. Study Conclusions - Left ventricle: The cavity [...] and is dilated with moderately depressed function. Cardiac Anatomy Left ventricle: - The cavity size is normal. Wall thickness was increased in a pattern of moderate LVH. Systolic ?function was mildly reduced. The estimated ejection fraction was in the range of 45% to 50%. Regional wall motion abnormalities: - Hypokinesis of the basal-mid anteroseptal myocardium. - Features are consistent with a pseudonormal left ventricular filling pattern, with concomitant ?abnormal relaxation and increased filling pressure (grade 2 diastolic dysfunction). Aorta: ?? Aortic root: - The aortic root is normal in size. Aortic valve: - Trileaflet; moderately thickened leaflets. Focal calcification involving the left coronary cusp. ?Left coronary cusp mobility was severely restricted. Doppler: - Transvalvular velocity is minimally increased. There is no stenosis. No regurgitation. Mitral valve: - Poorly visualized. Moderately calcified annulus. There is a mobile echodensity on the posterior ?aspect of the mitral annulus which represents a small mobile calcification versus vegetation. Doppler: - Transvalvular velocity is within the normal range. There is no evidence for stenosis. Trivial ?regurgitation. Left atrium: - The atrium is mildly dilated. Systemic veins: Inferior vena cava: The vessel was dilated. The respirophasic diameter changes were blunted (< 50%), consistent with elevated central venous pressure. Right ventricle: - The cavity size is severely dilated. Wall thickness is normal. Systolic function was moderately ?reduced by visual assessment. Tricuspid annular systolic velocity: 8cm/s. Pulmonic valve: ?Doppler: - Transvalvular velocity is within the normal range. There is no evidence for stenosis. Trivial ?regurgitation. Tricuspid valve: - Structurally normal valve. Doppler: - Transvalvular velocity is within the normal range. Mild-moderate regurgitation directed ?eccentrically. Right atrium: - The atrium is normal in size. Pericardium: - There is no pericardial effusion. Systemic veins: Inferior vena cava: - The vessel was dilated. The respirophasic diameter changes were blunted (< 50%), consistent with ?elevated central venous pressure. Measurements ??Left ventricle ? Value ?06/01/2020 Ref ??GINA, LAX ? (N) ? 5.7 ?? cm ? 4.2 - 5.8 ??ESD, LAX ? (H) ? 4.5 ?? cm ? 2.5 - 4.0 ??GINA/bsa, LAX ? (N) ? 2.2 ?? cm/m^2 ?? 2.2 - 3.0 ??ESD/bsa, LAX ? (N) ? 1.7 ?? cm/m^2 ?? 1.3 - 2.1 ??FS, LAX ?(L) ? 21 ?% ? 25 - 43 ??FS, LAX chord ?(L) ? 21 ?% ? 25 - 43 ??ESD ?(H) ? 4.5 ?? cm ? 2.5 - 4.0 ??ESD/bsa ?(N) ? 1.7 ?? cm/m^2 ?? 1.3 - 2.1 ??PW, ED ? (H) ? 1.5 ?? cm ? 0.6 - 1.0 ??IVS/PW, ED ? 1 ?EDV ?(H) ? 160 ?? ml ? 62 - 150 ??ESV ?(H) ? 92 ?ml ?EF ? (L) ? 42 ?% ? 52 - 72 ??SV ? 113 ?? ml ?EDV/bsa ?(N) ? 61 ?ml/m^2 ?? 74 ??ESV/bsa ?(H) ? 35 ?ml/m^2 ?SV/bsa ? 43 ?ml/m^2 ?SV, 1-p A2C ?68 ?ml ?SV/bsa, 1-p A2C ?25.6 ??ml/m^2 ?SV, 1-p A4C ?94 ?ml ? 137 ?SV/bsa, 1-p A4C ?36 ?ml/m^2 ?? 59 ?E', lat denilson, TDI ? (N) ? 10.9 ??cm/sec ?? 17.9 ? >=10.0 ??E/e', lat denilson, TDI ? 11 ? 8 ?A', lat denilson, TDI ? 11.9 ??cm/sec ?E'/a', lat denilson, TDI ?0.92 ?S', lat denilson, TDI ? 9.6 ?? cm/sec ?? 10.9 ?E', med denilson, TDI ? (N) ? 7.1 ?? cm/sec ?? 12.0 ? >=7.0 ??E/e', med denilson, TDI ? 17 ? 12 ?A', med denilson, TDI ? 6.4 ?? cm/sec ?E'/a', med denilson, TDI ?1.1 ?S', med denilson, TDI ? 7.0 ?? cm/sec ?? 10.6 ?E', avg, TDI ? 9.0 ?? cm/sec ?? 15.0 ?E/e', avg, TDI ? (N) ? 13 ? 10 ? <=14 ??LVET ? 290 ?? ms ?LVOT ? Value ?06/01/2020 Ref ??Diam, S ?2.3 ?? cm ?Area ? 4.2 ?? cm^2 ?Peak cesilia, S ?1.29 ??m/sec ?1.38 ?Mean cesilia, S ?0.81 ??m/sec ?Peak grad, S ? 7 ? mm Hg ?8 ?SV ? 113 ?? ml ?SV/bsa ? 43 ?ml/m^2 ?Ventricular septum ? Value ?06/01/2020 Ref ??IVS, ED ?(H) ? 1.5 ?? cm ? 0.6 - 1.0 ?Right ventricle ?Value ?06/01/2020 Ref ??GINA, LAX ? 2.9 ?? cm ? 5.8 ?TAPSE, MM ?(N) ? 2.0 ?? cm ? 2.1 ?1.7 - 3.1 ??S' lateral ? (N) ? 7.9 ?? cm/sec ?? 13.2 ? 6.0 - 13.4 ?RVOT ? Value ?06/01/2020 Ref ??Peak v, S ?0.74 ??m/sec ?1.18 ?Left atrium ?Value ?06/01/2020 Ref ??AP dim, ES ? (N) ? 3.2 ?? cm ? 4.4 ?3.0 - 4.0 ??AP dim index ? (L) ? 1.2 ?? cm/m^2 ?? 1.9 ?1.5 - 2.3 ??Area ES, A4C ? (H) ? 26 ?cm^2 ? 23 ? <=20 ??Area ES, A2C ? 27 ?cm^2 ? 25 ?SI dim, A2C ?6.4 ?? cm ? 5.4 ?Vol, ES, 1-p A4C ? (H) ? 82 ?ml ? 68 ? 18 - 58 ??Vol/bsa, ES, 1-p A4C (N) ? 31 ?ml/m^2 ?? 29 ? 12 - 37 ??Vol, ES, 1-p A2C ? (H) ? 92 ?ml ? 87 ? 18 - 58 ??Vol/bsa, ES, 1-p A2C (N) ? 35 ?ml/m^2 ?? 37 ? 11 - 43 ??Vol, ES, 2-p ? 87 ?ml ? 80 ?Vol/bsa, ES, 2-p ? (N) ? 33 ?ml/m^2 ?? 34 ? 16 - 34 ?Right atrium ? Value ?06/01/2020 Ref ??Area, ES, A4C ?(H) ? 22 ?cm^2 ? 22 ? 10 - 18 ?Aortic valve ? Value ?06/01/2020 Ref ??Peak v, S ?1.7 ?? m/sec ?2.2 ?Mean v, S ?1.22 ??m/sec ?1.47 ?Mean grad, S ? 7 ? mm Hg ?11 ?Peak grad, S ? 11 ?mm Hg ?20 ?LVOT/AV, VTI ratio ? 0.78 ?LEO, VTI ? 3.2 ?? cm^2 ?LEO/bsa, VTI ? 1.22 ??cm^2/m^2 ??LVOT/AV, Vpeak ratio ? 0.78 ? 0.62 ?LEO, Vmax ?3.2 ?? cm^2 ?LEO/bsa, Vmax ?1.22 ??cm^2/m^2 ??LVOT/AV, Vmean ratio ? 0.66 ?LEO, Vmean ? 2.7 ?? cm^2 ?LEO/bsa, Vmean ? 1.04 ??cm^2/m^2 ?Mitral valve ? Value ?06/01/2020 Ref ??Peak E ? 1.2 ?? m/sec ?1.49 ?Peak A ? 0.97 ??m/sec ?Decel time ? 261 ?? ms ? 204 ?Peak grad, D ? 6 ? mm Hg ?9 ?Peak E/A ratio ? 1.2 ?Pulmonic valve ? Value ?06/01/2020 Ref ??Peak v, S ?1.2 ?? m/sec ?1.6 ?Tricuspid valve ?Value ?06/01/2020 Ref ??TR peak v ?(N) ? 2.8 ?? m/sec ? <=2.8 ??Peak RV-RA grad, S ? 46 ?mm Hg ?Max TR cesilia ? 2.84 ??m/sec ?Aortic root ?Value ?06/01/2020 Ref ??Root diam ?(N) ? 3.2 ?? cm ? 2.9 ?<4.6 ?Ascending aorta ?Value ?06/01/2020 Ref ??AAo AP diam, S ? 2.9 ?? cm ?AAo AP diam/bsa, S ? 1.1 ?? cm/m^2 ?Pulmonary artery ? Value ?06/01/2020 Ref ??Pressure, S ?61 ?mm Hg ? Legend: (L) ??and ??(H) ??krunal values outside specified reference range. (N) ??moran values inside specified reference range. I personally reviewed the images and agree with the interpretation of the resident. ?Reviewed and confirmed by Vinod Stokes MD [id number] Specimen Collected: 03/17/22 ??1:17 PM Last Resulted: 03/17/22 ??3:00 PM EKG Narrative Ventricular Rate: ??75 ??BPM Atrial Rate: ??75 ??BPM P-R Interval: ??218 ??ms QRS Duration: ??114 ??ms QT: ??450 ??ms QTc: ??502 ??ms P [place]: ??70 ??degrees R [place]: ??78 ??degrees T [place]: ??20 ??degrees Diagnosis Line: ??SINUS RHYTHM WITH 1ST DEGREE A-V BLOCK ^ CANNOT RULE OUT INFERIOR INFARCT , AGE UNDETERMINED ^ PROLONGED QT ^ ABNORMAL ECG ^ COMPARED TO THE ECG OF 03-MAY-2022 03:02, ^ THERE IS NO SIGNIFICANT CHANGE ^ Confirmed by Marcelino JERRY MD ([id number]) ??on 05/03/2022 11:44:28 AM Specimen Collected: 05/03/22 ??7:01 AM Last Resulted: 05/03/22 11:44 AM Please see also most recent lab results in epic. documented in this encounter Plan of Treatment Upcoming Encounters Date Type Department Care Team (Late st Contact Info) Description 07/15/2024 9:00 AM EST Hospital Encounter [facility] Interventional Radiology [address] [place] [address] Herve Carrillo MD [address] [facility] [address] [facility] [place] [address] documented as of this encounter Visit Diagnoses Not on filedocumented in this encounter Additional Health Concerns Assessment Noted Time PHQ-9 Depression Total Score: 0 12/06/19 18 3:00 PM EDT documented as of this encounter Care Teams Licensed Land Surveyor Relationship Specialty Start Date End Date Edgar Fournier MD [address] [place] [address] [place] [address] PCP - General 12/22/21 Maile Valles, RN Txp Post Coordinator Transplant Hepatology 11/07/17 Jack Ordoñez MD [address] [place] [address] Consulting Physician Transplant Hepatology 01/05/18 Estephania Sharif, DarrianD Pharmacist Pharmacist 11/11/19 documented as of this encounter
--- OUTSIDE RECORDS SUMMARY | 2024-07-12 12:28 | XMS_ITS | Encounter Summary ---
Author Organization [facility] Address [facility] [address] [place] [address] Care Team Providers Care International Coordinator Name Role Phone Maile Valles RN Unavailable Unavail able Jack Ordoñez MD Unavailable [phone] Estephania Sharif PharmD Unavailable Christine Edgar Tolentino MD Primary Care Provider [phone] Source Comments This information has been disclosed [...] release of HIV test results or diagnoses. [id number] Encounter Details Date Type Department Care Team (Latest Contact Info) Description 05/18/2022 Travel Social History Tobacco Use Types Packs/Day [...] 9:00 AM EST Hospital Encounter [facility] Interventional Radiology [address] [place] [phone] Herve Carrillo MD [address] [facility] [address] [place] [address] documented as of this encounter Visit Diagnoses Not on filedocumented in this encounter Additional Health Concerns Assessment Noted Time PHQ-9 Depression Total Score: 0 12/06/19 18 3:00 PM EDT documented as of this encounter Care Teams International Coordinator Relationship Specialty Start Date End Date Edgar Fournier MD [address] [place] [address] PCP - General 12/22/21 Maile Valles, RN Txp Post Coordinator Transplant Hepatology 11/07/17 Jack Ordoñez MD [address] [place] [phone] Consulting Physician Transplant Hepatology 01/05/18 Estephania Sharif, DarrianD Pharmacist Pharmacist 11/11/19 documented as of this encounter
--- OUTSIDE RECORDS SUMMARY | 2024-07-12 12:28 | XMS_ITS | Encounter Summary ---
Author Organization [facility] Address [facility] [place] [place] [address] Care Team Providers Care Psychiatry Resident Name Role Phone Maile Valles RN Unavailable Unavail able Arnold Ordoñez MD Unavailable [phone] Estephania Sharif PharmD Unavailable Christine Edgar Tolentino MD Primary Care Provider [phone] Source Comments This information has been disclosed [...] release of HIV test results or diagnoses. [id number] Reason for Visit * Auth/Cert Specialty Diagnoses / Procedures Referred By Contact Referred To Contact Gastroenterology Diagnoses gastric ulcer Procedures EGD 99461 (CPT??) - TX ESOPHAGOGASTRODUODENOSCOPY TRANSORAL DIAGNOSTIC 74763 (CPT??) - [place] EGD TRANSORAL BIOPSY SINGLE/MULTIPLE 93043 (CPT??) - [place] EGD REMOVAL TUMOR POLYP/OTHER LESION SNARE TECH [facility] ENDOSCOPY [address] [place] [address] Phone: [phone] Referral ID Status Reason Start Date Expiration Date Visits Re quested Visits Authorized [id number] 1 1 Encounter Details Date Type Department Care Team (Late st Contact Info) Description 05/18/2022 3:50 PM EDT - 05/18/2022 4:20 PM EDT Surgery [facility] ENDOSCOPY [address] [place] [phone] Arnold Ordoñez MD [address] [place] [phone] EGD Surgery Details Date/Time Status Location OR Service Patient Class Case Class Case Type Trauma Case? 05/18/2022 3:50 PM Posted ENDOSCOPY E3 [facility] Hosp OP Surg/Ambul atory EGD/Sm Bowel Panel 1 Procedure LRB Anes Op Region Wound Class Comments EGD N/A MAC (Monitor Ane [facility]) Clean Contaminated Surgeon Surgeon Role Service Panel Arnold Ordoñez MD Primary Gastroenterology 1 documented in this encounter Social History [...] Sign Reading Time Taken Comments Blood Pressure 168/89 05/18/2022 2:38 PM EDT Pulse 79 05/18/2022 2:38 PM EDT Temperature 36.3 ??C (97.3 ??F) 05/18/2022 2:38 PM ED T Respiratory Rate 18 05/18/2022 2:38 PM EDT Oxygen Saturation 90% 05/18/2022 2:38 PM EDT Inhaled Oxygen Concentration 90% 05/18/2022 2 :38 PM EDT Weight 133.8 kg (295 lb) 05/18/2022 2:38 PM EDT Height 175.3 cm (5' 9 ) 05/18/2022 2:38 PM EDT Body Mass Index 43.56 05/18/2022 2:38 PM EDT documented in this encounter Discharge Instructions * Discharge Instructions* Judi Villalba RN - 05/18/2022 5:23 PM EDT [facility] ENDOSCOPY INSTRUCTION/RELEASE FORMS Date: 05/18/2022 Procedure: Procedure(s): EGD IF YOU DEVELOP EXCESSIVE BLEEDING, UNCONTROLLED PAIN OR SHORTNESS OF BREATH, GO TO THE EMERGENCY DEPARTMENT FOR AN EXAMINATION. IF YOU DEVELOP CHILLS, FEVER (greater than 100.5) OR HAVE CONCERNS ABOUT YOUR RECOVERY, CALL Dr. Ordoñez AT [phone]. BECAUSE OF THE SEDATION YOU RECEIVED FOR [...] MAB 06/21/2022 2:40 PM Fermín Schulte MD [facility] All Patient Belongings Have Been Returned: (patient [...] with meals. 60 tablet 5 2 06/21/20 22 cholecalciferol, vitamin D3, 1,250 mcg (50,000 unit) [...] 1 02/21/2022 11:37 AM EDT 2 05/23/20 22 fenofibrate micronized (LOFIBRA) 134 MG capsule Take [...] with 1pm arrival. Staff message to cardiac international controller because patient had a 1:30pm appointment on the same day. States that the appointment was not for cardiac clearance and wanted it rescheduled documented in this encounter H&P Notes * Arnold Ordoñez MD - 05/18/2022 4:26 PM EDT [facility] PRE-SEDATION ASSESSMENT, HISTORY & PHYSICAL Date: [...] ??? ABDOMINAL SURGERY ??? BACK SURGERY 04/2020 [facility] ??? COLONOSCOPY N/A 03/23/2022 Procedure: [...] TRANSPLANTATION N/A 10/08/2017 Procedure: TRANSPLANT LIVER; Surgeon: Aim Rossi MD; Location: OR; Service: Transplant; Laterality: [...] Ordoñez MD - 05/18/2022 4:26 PM EDT [id number] Procedure Date: 05/18/2022 4:26 PM Patient Name: [...] previously scheduled. Procedure Code(s): --- Professional --- 33527, Esophagogastroduodenoscopy, flexible, transoral; diagnostic, including collection of specimen(s) by brushing or washing, when performed (separate procedure) Diagnosis Code(s): --- Professional --- K31.89, Other diseases of stomach and duodenum K27.9, Peptic ulcer, site unspecified, unspecified as acute or chronic, without hemorrhage or perforation CPT copyright 2020 [employer]. All rights reserved. The codes documented in this report are preliminary and upon landman review may be revised to meet current compliance requirements. Attending Participation: I personally performed the entire procedure. Arnold Ordoñez MD ARNOLD ORDOÑEZ MD 05/18/2022 5:16:56 PM This report has been signed electronically.ARNOLD ORDOÑEZ MD Total Procedure Duration Time 0 hours 3 minutes 31 seconds Scope In: 4:34:41 PM Scope Out: 4:38:[address] [place] [address], [address] documented in this encounter Plan of Treatment Upcoming Encounters Date Type Department Care Team (Late st Contact Info) Description 07/15/2024 9:00 AM EST Hospital Encounter [facility] Interventional Radiology [address] [place] [phone] Herve Carrillo MD [address] [place] [address] [address] [place] [address] documented as of this encounter [...] all cells tested 05/18/2022 10:04 PM EDT [facility] Comment:All othr clin signif alloab ruled out at this time Blood 05/18/2022 10:0 4 PM EDT 05/18/2022 10:04 PM EDT us Jordin Kaur DO BLOOD BANK TEST ORDERABLES Yoselin robles Result [facility] [address] * Antibody identification (05/18/2022 10:04 PM EDT) Antibody Id. #1 Anti-C 05/18/2022 10:04 PM EDT [facility] Antibody Id. #2 Anti-D 05/18/2022 10:04 PM EDT [facility] Blood 05/18/2022 10:0 4 PM EDT 05/18/2022 10:04 PM EDT Jordin Kaur DO BLOOD BANK TEST ORDERABLES Yoselin l Result [facility] [address] * ELIUD Anti-IgG (05/18/2022 10:01 PM EDT) Pathologist [facility] ELIUD IgG Positive 05/18/2022 10:01 PM EDT [facility] Blood 05/18/2022 10:0 1 PM EDT 05/18/2022 10:01 PM EDT Jordin Kaur DO BLOOD BANK TEST ORDERABLES Yoselin l Result Performing Organization Address City/[facility]/ZIP Co de Phone Number [facility] [address] * UPPER GI ENDOSCOPY (05/18/2022 4:26 PM EDT) 05/18/2022 4:26 PM EDT Narrative [facility] - 05/18/2022 5:17 PM EDT [id number] Procedure Date: 05/18/2022 4:26 PM ? Patient Name: Aiden Stauffer ? Date of : 1975 ?Admit Type: Ambulatory Age: 47 ? Gender: Male Note Status: Finalized ?Attending MD: ARNOLD ORDOÑEZ MD Procedure: ? Upper GI endoscopy Indications: ? Follow-up of peptic ulcer Providers: ? ARNOLD ORDOÑEZ MD Referring MD: ?Edgar Mahmood: ? Monitored Anesthesia Care Complications: ? No [...] Procedure Code(s): ? --- Professional --- ? 30021, Esophagogastroduodenoscopy, flexible, ? transoral; diagnostic, including collection of ? specimen(s) by brushing or washing, when performed ? (separate procedure) Diagnosis Code(s): ? --- Professional --- ? K31.89, Other diseases of stomach and duodenum ? K27.9, Peptic ulcer, site unspecified, unspecified as ? acute or chronic, without hemorrhage or perforation CPT copyright 2020 [employer]. All rights reserved. The codes documented in this report are preliminary and upon landman review may be revised to meet current compliance requirements. Attending Participation: ? I personally performed the entire procedure. ? Arnold Ordoñez MD ARNOLD ORDOÑEZ MD 05/18/2022 5:16:56 PM This report has been signed electronically.ARNOLD ORDOÑEZ MD Total Procedure Duration Time 0 hours 3 minutes 31 seconds Scope In: 4:34:41 PM Scope Out: 4:38:12 PM ? [facility] [place], [place], Count includes the [facility] us Edgar Fournier MD PROCEDURE/MINOR SURGICAL ORDE [place] Final Result Performing Organization Address [facility] Co de Phone Number [facility] [address] [place] [address]. [place] [address] * POC Glucose Monitoring Device (05/18/2022 3:51 PM EDT) POC Glucose Monitoring Device 90 70 - 100 mg/dL 05/18/2022 3:52 PM EDT [facility] Blood 05/18/2022 3:51 PM EDT 05/18/2022 3:51 PM EDT us Arnold Ordoñez MD POINT OF CARE TEST ORDERABLES Final Result Performing Organization Address [facility] de Phone Number [facility] [address] [place] [address] * Antibody Screen (05/18/2022 3:40 PM EDT) Antibody Screen Positive 05/18/2022 4:35 PM EDT [facility] Blood 05/18/2022 3:40 PM EDT 05/18/2022 3:57 PM EDT Narrative [facility] - 05/18/2022 4:58 PM EDT Testing performed by [facility] Transfusion Service us Jordin Kaur DO BLOOD BANK TEST ORDERABLES Yoselin l Result [facility] [address] * ABO/Rh (05/18/2022 3:40 PM EDT) ABO Grouping O 05/18/2022 4:23 PM EDT [facility] Rh Type Negative 05/18/2022 4:23 PM EDT [facility] Blood 05/18/2022 3:40 PM EDT 05/18/2022 3:57 PM EDT Jordin Kaur DO BLOOD BANK TEST ORDERABLES Yoselin l Result [facility] [address] * POC Glucose Monitoring Device (05/18/2022 2:50 PM EDT) POC Glucose Monitoring Device 91 70 - 100 mg/dL 05/18/2022 2:51 PM EDT [facility] Blood 05/18/2022 2:50 PM EDT 05/18/2022 2:50 PM EDT Arnold Ordoñez MD POINT OF CARE TEST ORDERABLES Final Result [facility] [address] * (ABNORMAL) Renal Function Panel w/EGFR (05/18/2022 2:46 PM EDT) Sodium 144 133 - 146 mmol/L 05/18/2022 4:50 PM EDT [facility] Potassium 3.9 3.5 - 5.3 mmol/L 05/18/2022 4:50 PM EDT [facility] Chloride 98 98 - 110 mmol/L 05/18/2022 4:50 PM EDT [facility] CO2 33 21 - 33 mmol/L 05/18/2022 4:50 PM EDT [facility] Anion Gap 13 3 - 16 mmol/L 05/18/2022 4:50 PM EDT [facility] BUN 27(H) 7 - 25 mg/dL 05/18/2022 4:50 PM EDT [facility] Creatinine 5.29(H) 0.60 - 1.30 mg/dL 05/18/2022 4:50 PM EDT [facility] Glucose 80 70 - 100 mg/dL 05/18/2022 4:50 PM EDT [facility] Calcium 9.4 8.6 - 10.3 mg/dL 05/18/2022 4:50 PM EDT [facility] Phosphorus 3.4 2.1 - 4.7 mg/dL 05/18/2022 4:50 PM EDT [facility] Albumin 4.0 3.5 - 5.7 g/dL 05/18/2022 4:50 PM EDT [facility] Osmolality, Calculated 302 278 - 305 mOsm/kg 05/18/2022 4:50 PM EDT [facility] EGFR 13 05/18/2022 4:50 PM EDT [facility] Comment:As of 2021, the estimated [...] LAB BLOOD ORDERABLES Final Resu lt [facility] [address] [place] [id number], [facility] * (ABNORMAL) CBC (05/18/2022 2:46 PM EDT) WBC 4.2 3.8 - 10.8 10E3/uL 05/18/2022 4:23 PM EDT [facility] RBC 2.90(L) 4.20 - 5.80 10E6/uL 05/18/2022 4:23 PM EDT [facility] Hemoglobin 9.1(L) 13.2 - 17.1 g/dL 05/18/2022 4:23 PM EDT [facility] Hematocrit 27.9(L) 38.5 - 50.0 % 05/18/2022 4:23 PM EDT [facility] MCV 96.4 80.0 - 100.0 fL 05/18/2022 4:23 PM EDT [facility] MCH 31.3 27.0 - 33.0 pg 05/18/2022 4:23 PM EDT [facility] MCHC 32.5 32.0 - 36.0 g/dL 05/18/2022 4:23 PM EDT [facility] RDW 14.1 11.0 - 15.0 % 05/18/2022 4:23 PM EDT [facility] Platelets 241 140 - 400 10E3/uL 05/18/2022 4:23 PM EDT [facility] MPV 7.3(L) 7.5 - 11.5 fL 05/18/2022 4:23 PM EDT [facility] Whole Blood 05/18/2022 2:46 PM EDT 05/18/2022 4:02 PM EDT Jordin Kaur DO LAB BLOOD ORDERABLES Final Resu lt Performing Organization Address City/State/[facility] Co de Phone Number [facility] [address] * Potassium, Blood Gas (05/18/2022 2:41 PM EDT) Potassium, Blood Gas 3.9 3.5 - 5.3 mEq/L 05/18/2022 3:02 PM EDT [facility] Blood, Arterial 05/18/2022 2 :41 PM EDT 05/18/2022 3:01 PM EDT us Jordin Kaur DO LAB BLOOD ORDERABLES Final Resu lt [facility] [address] [place] [address], [facility] documented in this encounter Visit Diagnoses Diagnosis Gastric ulcer, unspecified chronicity, unspecified whether gastric ulcer hemorrhage or perforation present Gastric ulcer Gastric ulcer, unspecified as acute or chronic, without mention of hemorrhage, perforation, or obstruction documented in this encounter Administered Medications Inactive [...] documented as of this encounter Care Teams Psychiatry Resident Relationship Specialty Start Date End Date Edgar Fournier MD [address] [place] [address] [place] [address] PCP - General 12/22/21 Maile Valles, JANA Txp Post Coordinator Transplant Hepatology 11/07/17 Arnold Ordoñez MD [facility] [place] [address] Consulting Physician Transplant Hepatology 01/05/18 Estephania Sharif, PharmD Pharmacist Pharmacist 11/11/19 documented as of this encounter
--- OUTSIDE RECORDS SUMMARY | 2024-07-12 12:28 | XMS_ITS | Encounter Summary ---
Author Organization [facility] Address [address] [place] [address] Care Team Providers Care Manager Emergency Department Name Role Phone Maile Valles RN Unavailable Unavail able Jack Ordoñez MD Unavailable [phone] Estephania Sharif PharmD Unavailable Christine Edgar Tolentino MD Primary Care Provider [phone] Source Comments This information has been disclosed [...] release of HIV test results or diagnoses. [id number] Reason for Visit * Reason Comments Medication Refill Encounter Details Date Type Department Care Team (Late st Contact Info) Description 05/23/2022 Refill [facility] Liver Transplant at [facility] [address] [facility] [address] [place] [address] Jack Ordoñez MD [address] [place] [address] Social History Tobacco Use Types [...] 9:00 AM EST Hospital Encounter [facility] Interventional Radiology [address] [place] [phone] Herve Carrillo MD [address] [facility] [address] [place] [address] documented as of this encounter Visit Diagnoses Not on filedocumented in this encounter Additional Health Concerns Assessment Noted Time PHQ-9 Depression Total Score: 0 12/06/19 18 3:00 PM EDT documented as of this encounter Care Teams Manager Emergency Department Relationship Specialty Start Date End Date Edgar Fournier MD [address] [place] [address] [place] [address] PCP - General 12/22/21 Maile Valles, JANA Txp Post Coordinator Transplant Hepatology 11/07/17 Jack Ordoñez MD [address] [place] [phone] Consulting Physician Transplant Hepatology 01/05/18 Estephania Sharif, DarrianD Pharmacist Pharmacist 11/11/19 documented as of this encounter
--- OUTSIDE RECORDS SUMMARY | 2024-07-12 12:28 | XMS_ITS | Encounter Summary ---
Author Organization [facility] Address [address] [place] [address] Care Team Providers Care Sieve Maker Name Role Phone Maile Valles RN Unavailable Unavail able Jack Ordoñez MD Unavailable [phone] Estephania Sharif PharmD Unavailable Christine Edgar Tolentino MD Primary Care Provider [phone] Source Comments This information has been disclosed [...] release of HIV test results or diagnoses. [id number] Health Encounter Details Date Type Department Care Team (Late st Contact Info) Description 05/05/2022 Orders Only [facility] Advanced Heart Failure at [facility] [address] [facility] [address] [place] [address] Humza Riley CNP Social History [...] Description 07/15/2024 9:00 AM EST Hospital Encounter [facility] Interventional Radiology [address] [place] [phone] Herve Carrillo MD [address] [facility] [address] [place] [address] documented as of this encounter Visit Diagnoses Not on filedocumented in this encounter Additional Health Concerns Assessment Noted Time PHQ-9 Depression Total Score: 0 12/06/19 18 3:00 PM EDT documented as of this encounter Care Teams Sieve Maker Relationship Specialty Start Date End Date Edgar Fournier MD [address] [place] [address] [place] [address] PCP - General 12/22/21 Maile Valles, JANA Txp Post Coordinator Transplant Hepatology 11/07/17 Jack Ordoñez MD [address] [place] [phone] Consulting Physician Transplant Hepatology 01/05/18 Estephania Sharif, PharmD Pharmacist Pharmacist 11/11/19 documented as of this encounter
--- OUTSIDE RECORDS SUMMARY | 2024-07-12 12:28 | XMS_ITS | Encounter Summary ---
Author Organization [facility] Address [facility] [place] [address] Care Team Providers Care Manager Housekeeping Name Role Phone Maile Valles RN Unavailable Unavail able Jack Ordoñez MD Unavailable [phone] Estephania Sharif PharmD Unavailable Christine Edgar Tolentino MD Primary Care Provider [phone] Source Comments This information has been disclosed [...] release of HIV test results or diagnoses. [id number] Reason for Visit * Auth/Cert Specialty Diagnoses / Procedures Referred By Contac t Referred To Contact Cardiology Diagnoses HF, pulm HTN/CARDIO MEMs Procedures RIGHT HEART CATH [facility] Cardiac Veneer Layer [address] [place] [address] Phone: tel: Referral ID Status Reason Start Date Expiration Date Visits Re quested Visits Authorized [id number] 1 1 Encounter Details Date Type Department Care Team (Late st Contact Info) Description 06/23/2022 7:30 AM EST - 06/23/2022 8:30 AM EST Surgery [facility] Cardiac Veneer Layer [address] [place] [address] Fermín Schulte MD Right Heart Cath with cardioMEMs insertion Surgery Details Date/Time Status Location OR Service Patient Class Case Class Case Type Trauma Case? 06/23/2022 7:30 AM Posted CARDIAC CATH LABS CATH 02 Cath Hosp OP Surg/Ambula tory Panel 1 Procedure LRB Anes Op Region Wound Class Comments Right Heart Cath with cardio MEMs insertion N/A Moderate Sedation Surgeon Surgeon Role Service Panel Fermín Schulte MD Primary Cath 1 documented in this [...] Sign Reading Time Taken Comments Blood Pressure 155/82 06/23/2022 7:15 AM EST Pulse 75 06/23/2022 7:15 AM EST Temperature - - Respiratory Rate 18 06/23/2022 7:15 AM EST Oxygen Saturation 91% 06/23/2022 7:15 AM EST Inhaled Oxygen Concentration 91% 06/23/2022 7 :15 AM EST Weight 132.9 kg (292 lb 14.4 oz) 06/23/2022 5:00 AM EST Height 175.3 cm (5' 9 ) 06/23/2022 5:00 AM EST Body Mass Index 43.25 06/23/2022 5:00 AM EST documented in this encounter Discharge Instructions * Discharge Instructions* Amairlys Casper RN - 06/23/2022 10:28 AM EST [...] total) by mouth at bedtime as needed. 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 Bedside report received from JANA SNOWDEN. Pt placed on telemetry, serial vital signs set up. Access site: [facility]. Site is soft, no bleeding/hematoma, [address] Sheath removed in prestressed concrete laborer at 0900, RUE is warm, natural [...] Procedure CardioMEMS insertion Patient: Aiden Stauffer Jr. [id number] Indication(s): Systolic Heart Failure Recurrent hospital admission d/t decompensated HF Procedure(s) Performed: Right heart catheterization Selective pulmonary angiography CardioMEMS Device insertion Findings: RA 22 RV 60/20 PA 55/32 (41) PCWP 25 CUSTODIAL 8.1 Post Device Implantation: PA 52/32 (40) Conclusion (s): Pre and Post-capillary pulmonary hypertension Patient hypertensive during procedure, BP 191/105 PA catheter removed upon completion of procedure Recommendations/Plan: Plan for same day discharge Continue current medical therapies + plavix for 30 days Discussed with referring physician Anesthesia type: Moderate IV Patient location: Cardiac Veneer Layer Post pain: Adequate analgesia Post assessment: no apparent anesthetic complications and tolerated procedure well Last Vitals: Vitals: 06/23/22 0715 BP: 155/82 Pulse: 75 Resp: 18 SpO2: 91% Post vital signs: stable Level of consciousness: awake and alert Complications: None ANNA ARIAS Interventional Clinical Cytopathologist, PGY-7 9:06 AM 06/23/2022 * Amarilys Casper [...] Arias MD - 06/23/2022 7:50 AM EST [facility] PRE-SEDATION ASSESSMENT, HISTORY & PHYSICAL Date: [...] ??? ABDOMINAL SURGERY ??? BACK SURGERY 04/2020 [facility] ??? COLONOSCOPY N/A 03/23/2022 Procedure: COLONOSCOPY [...] daily with breakfast. 03/26/22 Yes Alex De Guzman, cycloSPORINE modified (CYCLOSPORINE MODIFIED) 25 MG capsule [...] patch onto the skin daily as needed. 9/13/21 Historical Provider, ondansetron (ZOFRAN-ODT) 4 MG disintegrating [...] Advanced Heart Failure Interventional Cardiovascular Disease Pager [phone] documented in this encounter Plan of Treatment Upcoming Encounters Date Type Department Care Team (Late st Contact Info) Description 07/15/2024 9:00 AM EST Hospital Encounter [facility] Interventional Radiology [address] [place] [address] Herve Carrillo MD [address] [facility] [address] [facility] [place] [address] documented as of this encounter [...] Narrative RADNET - 06/26/2022 1:06 AM EST *[facility]* Cardiac Veneer Layer [address] [place], [place] [address] CATHETERIZATION LAB STUDY Patient: ? Aiden Stauffer ?Age: ?47 ?Study Date: ? 06/23/2022 ? [...] PA 55/32 (41) ?? PCWP 25 ?? CUSTODIAL 8.1 ?? Post Device Implantation: ?? PA [...] ??Right internal jugular vein access. A 4f SimScale mini access kit sheath was advanced into ?the vessel. 4. ??Sheath exchange. The sheath was exchanged for a [id number] pinnacle sheath. 5. ??Sheath exchange. The sheath was exchanged for a [id number] pinnacle sheath. 6. ??Supplemental oxygen. Oxygen, 2L/min [...] + + + !RV pressure s/d, ed ?!60/, 20 ? ! ! + + + + !PA wedge a/v (m) ? ! () ?! () ?? ! + + + + !MPA pressure s/d (m) ? !55/32 (41) ?!52/30 (40) ?? ! + + + + !Aortic pressure s/d (m) ??!191/105 (133) ? ! ! + + + + !SVR ?!1091dyn-sec/cm5 ? ! ! + + + + !SVRI ? !0921lxi-zpv-r^2/cm5 ? ! ! + + + + !PVR ?!157dyn-sec/cm5 ?! ! + + + + !PVRI ? !038myb-fym-v^2/cm5 ?! ! + + + + !Total systemic resistance!1307dyn-sec/cm5, 3218dhe-wlw-u^2/cm5! ! + + + + Saturations: + [...] and electronically signed by Fermín Schulte MD [id number]:06:03 Procedure Note Fermín Schulte MD - 06/26/2022 *[facility]* Cardiac Veneer Layer [address] [place] [address] CATHETERIZATION LAB STUDY Patient: Aiden Stauffer Age: [...] RV 60/20 PA 55/32 (41) PCWP 25 CUSTODIAL 8.1 Post Device Implantation: PA 52/32 (40) [...] Right internal jugular vein access. A 4f merit s-marvin mini access kitsheath was advanced into the vessel. 4. Sheath exchange. The sheath was exchanged for a [id number] pinnaclesheath. 5. Sheath exchange. The sheath was exchanged for a [id number] pinnaclesheath. 6. Supplemental oxygen. Oxygen, 2L/min was [...] + + !RA pressure a/v (m) ! ()! ! + + + + !RV pressure s/d, ed !60/20, 20! ! + + + + !PA wedge a/v (m) ! () ! ()! + + + + !MPA pressure s/d (m) !55/32 (41) !52/30 (40)! + + + + !Aortic pressure s/d (m) !191/105 (133)! ! + + + + !SVR !1091dyn-sec/cm5! ! + + + + !SVRI !8148lvj-uhq-u^2/cm5! ! + + + + !PVR !157dyn-sec/cm5! ! + + + + !PVRI !737swl-zyq-a^2/cm5! ! + + + + !Total systemic resistance!1307dyn-sec/cm5,1123jle-ykm-w^2/cm5! ! + + + + Saturations: + [...] and electronically signed by Fermín Schulte MD [id number]:03 Fermín [place] [id number] Final Result Performing Organization Address City/[facility] Co de Phone Number RADNET * CARDIAC CATH DOCUMENTS SCAN (06/23/2022 9:12 AM EST) us Scanning Uchhim SCAN DOCS - NO RESULTS Final Res ult * (ABNORMAL) POC Oxyhemoglobin (06/23/2022 8:31 AM EST) POC Oxyhemoglobin 63.8(L) 95 - 98 % 8:33 AM EST [facility] Comment:SEE CATH REPORT FOR COMPREHENSIVE RESULTS Blood, Arterial 06/23/2022 8 :31 AM EST 06/23/2022 8:33 AM EST Fermín Schulte MD LAB BLOOD ORDERABLES Final Resul t Performing Organization Address [facility] de Phone Number [facility] [address] [place] [address] * (ABNORMAL) POC Total Hemoglobin (06/23/2022 8:31 AM EST) POC Total Hemoglobin 9.0(L) 14.0 - 18.0 g/dL 06/23/2022 8:33 AM EST [facility]ALTH LAB Comment:SEE CATH REPORT FOR COMPREHENSIVE RESULTS Blood, Arterial 06/23/2022 8 :31 AM EST 06/23/2022 8:33 AM EST Fermín Schulte MD LAB BLOOD ORDERABLES Final Resul t Performing Organization Address [facility] de Phone Number [facility] [address] [place] [address] * (ABNORMAL) POC Oxyhemoglobin (06/23/2022 8:28 AM EST) POC Oxyhemoglobin 65.8(L) 95 - 98 % 11/10/2 022 8:30 AM EST [facility] LAB Comment:SEE CATH REPORT FOR COMPREHENSIVE RESULTS Blood, Arterial 06/23/2022 8 :28 AM EST 06/23/2022 8:30 AM EST Result Yuri Schulte MD LAB BLOOD ORDERABLES Final Resul t Performing Organization Address [facility] de Phone Number [facility] [address] * (ABNORMAL) POC Total Hemoglobin (06/23/2022 8:28 AM EST) POC Total Hemoglobin 9.0(L) 14.0 - 18.0 g/dL 06/23/2022 8:30 AM EST [facility] LAB Comment:SEE CATH REPORT FOR COMPREHENSIVE RESULTS Blood, Arterial 06/23/2022 8 :28 AM EST 06/23/2022 8:30 AM EST Result Yuri Schulte MD LAB BLOOD ORDERABLES Final Resul t Performing Organization Address [facility] de Phone Number [facility] [address] * Protime-INR (06/23/2022 6:37 AM EST) Protime 14.8 12.1 - 15.1 seconds 06/23/2022 7:14 AM EST [facility]ALTH LAB INR 1.1 0.9 - 1.1 06/23/2022 7:14 AM EST [facility] LAB Comment: RECOMMENDED THERAPEUTIC RANGES USING INR : ?Stable oral anticoagulant therapy: ? 2.0 - 3.0 ?Mechanical prosthetic heart valve: ? 2.5 - 3.5 ?Recurrent acute myocardial infarction: ? 2.5 - 3.5 Plasma 06/23/2022 6:37 AM EST 06/23/2022 7:01 AM EST us Fermín Schulte MD LAB BLOOD ORDERABLES Final Resul t [facility] [address] [place] [address], [facility] * (ABNORMAL) Renal Function Panel w/EGFR (06/23/2022 6:37 AM EST) Sodium 144 133 - 146 mmol/L 06/23/2022 7:31 AM EST [facility] Potassium 5.0 3.5 - 5.3 mmol/L 06/23/2022 7:31 AM EST [facility] Chloride 100 98 - 110 mmol/L 06/23/2022 7:31 AM EST [facility] CO2 30 21 - 33 mmol/L 06/23/2022 7:31 AM EST [facility] Anion Gap 14 3 - 16 mmol/L 06/23/2022 7:31 AM EST [facility] BUN 50(H) 7 - 25 mg/dL 06/23/2022 7:31 AM EST [facility] Creatinine 8.54(H) 0.60 - 1.30 mg/dL 06/23/2022 7:31 AM EST [facility] Glucose 158(H) 70 - 100 mg/dL 06/23/2022 7:31 AM EST [facility] Calcium 9.3 8.6 - 10.3 mg/dL 06/23/2022 7:31 AM EST [facility] Phosphorus 5.6(H) 2.1 - 4.7 mg/dL 06/23/2022 7:31 AM EST [facility] Albumin 4.2 3.5 - 5.7 g/dL 06/23/2022 7:31 AM EST [facility] Osmolality, Calculated 315(H) 278 - 305 mOsm/kg 06/23/2022 7:31 AM EST [facility] EGFR 7 06/23/2022 7:31 AM EST [facility] Comment:As of 2021, [...] ORDERABLES Final Resul t Performing Organization Address City/State/[facility] Co de Phone Number [facility] [address] * (ABNORMAL) CBC (06/23/2022 6:37 AM EST) WBC 3.7(L) 3.8 - 10.8 10E3/uL 06/23/2022 7:07 AM EST [facility] RBC 3.03(L) 4.20 - 5.80 10E6/uL 06/23/2022 7:07 AM EST [facility] Hemoglobin 9.8(L) 13.2 - 17.1 g/dL 06/23/2022 7:07 AM EST [facility] Hematocrit 29.8(L) 38.5 - 50.0 % 06/23/2022 7:07 AM EST [facility] MCV 98.5 80.0 - 100.0 fL 06/23/2022 7:07 AM EST [facility] MCH 32.4 27.0 - 33.0 pg 06/23/2022 7:07 AM EST [facility] MCHC 32.9 32.0 - 36.0 g/dL 06/23/2022 7:07 AM EST [facility] RDW 16.3(H) 11.0 - 15.0 % 06/23/2022 7:07 AM EST [facility] Platelets 217 140 - 400 10E3/uL 06/23/2022 7:07 AM EST [facility] MPV 6.9(L) 7.5 - 11.5 fL 06/23/2022 7:07 AM EST [facility] Whole Blood 06/23/2022 6:37 AM EST 06/23/2022 7:01 AM EST us Fermín Schulte MD LAB BLOOD ORDERABLES Final Resul t [facility] [address] [place] [address], [facility] documented in this encounter Visit Diagnoses Diagnosis Pre-transplant evaluation for kidney transplant Pulmonary HTN (CMS-HCC) Essential (primary) hypertension Unspecified essential hypertension Pre-transplant evaluation for kidney transplant Pulmonary HTN (CMS-HCC) Essential (primary) hypertension Unspecified essential hypertension documented in this encounter Administered Medications Inactive Administered Medications - up to 3 most recent administrations Medication Order MAR Action Action Date Dose Rate Site clopidogreL (PLAVIX) tablet 600 mg 600 mg, Oral, Once, On Bobbi 06/23/22 at 0930, For 1 dose Given 06/23/2022 9:00 AM EST 600 mg clopidogreL (PLAVIX) tablet 75 mg 75 mg, [...] Given 06/23/2022 8:04 AM EST 0.5 mg OMNIPAQUE (iohexol) 350 mg iodine/mL Intra-op PRN, Starting on Bobbi 06/23/22 at 0900, Intra-procedure(Invasive Cardiology) Given 06/23/2022 9:00 AM EST 7 mLs documented in this encounter Active and [...] as of this encounter Care Teams Manager Housekeeping Relationship Specialty Start Date End Date Edgar Fournier MD [address] [place] [address] [place] [address] PCP - General 12/22/21 Maile Valles, JANA Txp Post Coordinator Transplant Hepatology 11/07/17 Jack Ordoñez MD [address] [place] [phone] Consulting Physician Transplant Hepatology 01/05/18 Estephania Sharif, DarrianD Pharmacist Pharmacist 11/11/19 documented as of this encounter
--- OUTSIDE RECORDS SUMMARY | 2024-07-12 12:28 | XMS_ITS | Encounter Summary ---
Author Organization [facility] Address [address] [place] [address] Care Team Providers Care Cell Cleaner Name Role Phone Maile Valles RN Unavailable Unavail able Jack Ordoñez MD Unavailable [phone] Estephania Sharif PharmD Unavailable Christine Edgar Toelntino MD Primary Care Provider [phone] Source Comments This information has been disclosed [...] release of HIV test results or diagnoses. [id number] Health Encounter Details Date Type Department Care Team (Late st Contact Info) Description 05/10/2022 Telephone Advanced Heart Failure at [facility] [address] [facility] [address] [place] [address] Humza Riley CNP Social History [...] Telephone Encounter - Humza Riley CNP - 05/10/2022 12:04 PM EDT Spoke to pt regarding challenging dialysis dry weight for upcoming EGD. 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 RN reported since recent hospital stay 05/01/22 target dry wt was changed from 136kg to 129kg, pt left dialysis yesterday at 130kg per RN. RN reports he does not get hypotensive but does report cramping. Advised to continue to try and challenge dry weight prior to upcoming procedure. documented in this encounter Plan of Treatment Upcoming Encounters Date Type Department Care Team (Late st Contact Info) Description 07/15/2024 9:00 AM EST Hospital Encounter Interventional Radiology [address] [place] [phone] Herve Carrillo MD [address] [facility] [address] [facility] [place] [phone] documented as of this encounter Visit Diagnoses Not on filedocumented in this encounter Additional Health Concerns Assessment Noted Time PHQ-9 Depression Total Score: 0 12/06/19 18 3:00 PM EDT documented as of this encounter Care Teams Cell Cleaner Relationship Specialty Start Date End Date Edgar Fournier MD [address] [place] [address] [place] [address] PCP - General 12/22/21 Maile Valles, RN Txp Post Coordinator Transplant Hepatology 11/07/17 Jack Ordoñez MD [address] [place] [phone] Consulting Physician Transplant Hepatology 01/05/18 Estephania Sharif, DarrianD Pharmacist Pharmacist 11/11/19 documented as of this encounter
--- OUTSIDE RECORDS SUMMARY | 2024-07-12 12:28 | XMS_ITS | Encounter Summary ---
Author Organization [facility] Address [address] [place] [address] Care Team Providers Care Consultant Name Role Phone Maile Valles RN Unavailable Unavail able Jack Ordoñez MD Unavailable [phone] Estephania Sharif PharmD Unavailable Christine Edgar Tolentino MD Primary Care Provider [phone] Source Comments This information has been disclosed [...] release of HIV test results or diagnoses. [id number] Reason for Visit * Reason Comments Medication Refill Encounter Details Date Type Department Care Team (Late st Contact Info) Description 05/05/2022 Refill [facility] Internal Medicine at [address] [place] [address] Alex De Guzman DO Social [...] Description 07/15/2024 9:00 AM EST Hospital Encounter [facility] Interventional Radiology [address] [place] [phone] Herve Carrillo MD [address] [facility] [address] [place] [phone] documented as of this encounter Visit Diagnoses Not on filedocumented in this encounter Additional Health Concerns Assessment Noted Time PHQ-9 Depression Total Score: 0 12/06/19 18 3:00 PM EDT documented as of this encounter Care Teams Consultant Relationship Specialty Start Date End Date Edgar Fournier MD [address] [place] [address] [place] [address] PCP - General 12/22/21 Maile Valles, JANA Txp Post Coordinator Transplant Hepatology 11/07/17 Jack Ordoñez MD [address] [place] [phone] Consulting Physician Transplant Hepatology 01/05/18 Estephania Sharif, DarrianD Pharmacist Pharmacist 11/11/19 documented as of this encounter
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
--- OUTSIDE RECORDS SUMMARY | 2024-07-12 12:28 | XMS_ITS | Encounter Summary ---
Author Organization [facility] Address [address] [place] [address] Care Team Providers Care Light Rail Train Operator Name Role Phone Maile Valles RN Unavailable Unavail able Jack Ordoñez MD Unavailable [phone] Estephania Sharif PharmD Unavailable Christine Edgar Tolentino MD Primary Care Provider [phone] Source Comments This information has been disclosed [...] release of HIV test results or diagnoses. [id number] Reason for Referral * Diagnostic Imaging (Routine) - Closed Specialty Diagnoses / Procedures Referred By Contac t Referred To Contact Radiology Diagnoses Encounter regarding vascular access for dialysis for end-stage renal disease ([facility]) Procedures IR Angio Dialysis Circuit AMB Referral to Interventional Radiology (BODY IR) IN INTRO CATH DIALYSIS CIRCUIT DX ANGRPH FLUOR S&I Maru Camp, BROILER SUPERVISOR [address] [facility] [address] [facility] [place] [address] Phone: tel: fax: Referral ID Status Reason Start Date Expiration Date Visits Re quested Visits Authorized [id number] Closed 06/14/2022 12/11/2022 1 1 Encounter Details Date Type Department Care Team (Late st Contact Info) Description 06/14/2022 Orders Only [facility] Vascular Access at [facility] [address] [place] [address] Maru Camp CNP [address] [facility] [place] [address] Encounter regarding vascular access for dialysis for end-stage renal disease ([facility]) (Primary Dx) Social History Tobacco Use [...] Description 07/15/2024 9:00 AM EST Hospital Encounter [facility] Interventional Radiology [address] [place] [address] Herve Carrillo MD [address] [facility] [address] [facility] [place] [address] documented as of this encounter Results * IR Angio Dialysis [...] 2022 Staff: Eneida Frias MD, PhD Fellow: Jack Duarte MD Medical student: Zaynab Steele Indication: History [...] 2022 Staff: Eneida Frias MD, PhD Fellow: Jack Duarte MD Medical student: Zaynab Steele Indication: History [...] MD, PhD at 07/10/2022 9:35 PM EST us Maru Morelos Camp BROILER SUPERVISOR IMG IR ORDERABLES Final Result documented in this encounter Visit Diagnoses Diagnosis Encounter regarding vascular access for dialysis for end-stage renal disease (CMS-HCC)- Primary Encounter regarding vascular access for dialysis for end-stage renal disease (CMS-HCC) documented in this encounter Additional Health Concerns Assessment Noted Time PHQ-9 Depression Total Score: 0 12/06/19 18 3:00 PM EDT documented as of this encounter Care Teams Light Rail Train Operator Relationship Specialty Start Date End Date Edgar Fournier MD [address] [place] [address] [place] [address] PCP - General 12/22/21 Maile Valles, RN Txp Post Coordinator Transplant Hepatology 11/07/17 Jack Ordoñez MD [address] [place] [address] Consulting Physician Transplant Hepatology 01/05/18 Estephania Sharif, DarrianD Pharmacist Pharmacist 11/11/19 documented as of this encounter
--- OUTSIDE RECORDS SUMMARY | 2024-07-12 12:29 | XMS_ITS | Encounter Summary ---
Author Organization [facility] Address [address] [place] [address] Care Team Providers Care Senior Clinical Research Associate Name Role Phone Maile Valles RN Unavailable Unavail able Jack Ordoñez MD Unavailable [phone] Estephania Sharif PharmD Unavailable Christine Edgar Tolentino MD Primary Care Provider [phone] Source Comments This information has been disclosed [...] release of HIV test results or diagnoses. [id number] Reason for Visit * Reason Comments Appointment Pt requesting sooner appt Encounter Details Date Type Department Care Team (Late st Contact Info) Description 04/11/2022 Telephone [facility] Advanced Heart Failure at [facility] Office [address] [facility] [address] [place] [address] Fermín Schulte MD Appointment (Pt requesting sooner appt) Social History Tobacco Use Types Packs/Day Years Used Date Smoking Tobacco: Never Smokeless Tobacco: Never Alcohol Use Standard Drinks/Week Comments No 0 (1 standard drink = 0.6 oz pur e alcohol) AUDIT-C Answer Date Recorded Q1: How often do you have a drink containing alcohol? Never 03/20/2022 Q2: How many drinks containi ng alcohol do you have on a typical day when you are drinking? Patient does not drink Q3: How often do you have si x or more drinks on one occasion? Never 03/20/2022 PHQ-2 Answer Date Recorded PHQ-2 Total Score [...] suspected to have Coronavirus/COVID-19? No / Unsure 04/07/2022 9:00 AM EDT documented as of this encounter Miscellaneous Notes * Telephone Encounter - Maru Eng - 04/11/2022 3:32 PM EDT Patient had to reschedule his appt with Dr. Schulte on 04/26 for his next available on 06/07. He wanted to verify if he may be able to see a different provider to get in sooner. Patient is requesting a return call at [phone]. documented in this encounter Plan of Treatment Upcoming Encounters Date Type Department Care Team (Late st Contact Info) Description 07/15/2024 9:00 AM EST Hospital Encounter [facility] Interventional Radiology [address] [place] [address] Herve Carrillo MD [address] [facility] [address] [facility] [place] [address] documented as of this encounter Visit Diagnoses Not on filedocumented in this encounter Additional Health Concerns Infection Onset Date Last Indicated Resolved Time Rule Out COVID-19 05/01/2022 05/01/2022 05/02/2022 4:02 PM EDT Rule Out C. difficile 11/05/2023 11/06/20232023 10:01 PM EDT Assessment Noted Time PHQ-9 Depression Total Score: 0 12/06/19 3:00 PM EDT documented as of this encounter Care Teams Senior Clinical Research Associate Relationship Specialty Start Date End Date Edgar Fournier MD [address] [place] [address] PCP - General 12/22/21 Maile Valles, RN Txp Post Coordinator Transplant Hepatology 11/07/17 Jack Ordoñez MD [address] [place] [address] Consulting Physician Transplant Hepatology 01/05/18 Estephania Sharif, DarrianD Pharmacist Pharmacist 11/11/19 documented as of this encounter
--- OUTSIDE RECORDS SUMMARY | 2024-07-12 12:29 | XMS_ITS | Encounter Summary ---
Author Organization [facility] Address Formerly named [facility] [place] [address] Care Team Providers Care Account Liaison Name Role Phone Maile Valles RN Unavailable Unavail able Jack Ordoñez MD Unavailable [phone] Estephania Sharif PharmD Unavailable Christine Edgar Tolentino MD Primary Care Provider [phone] Source Comments This information has been disclosed [...] release of HIV test results or diagnoses. [id number] Reason for Referral * Surgical (Routine) - Closed Specialty Diagnoses / Procedures Referred By Contact Referred To Contact Gastroenterology Diagnoses Gastric ulcer, unspecified chronicity, unspecified whether gastric ulcer hemorrhage or perforation present Procedures Case request GI: EGD NC ESOPHAGOGASTRODUODENOSCOPY TRANSORAL DIAGNOSTIC NC EGD TRANSORAL BIOPSY SINGLE/MULTIPLE NC EGD REMOVAL TUMOR POLYP/OTHER LESION SNARE TECH Jack Ordoñez MD [address] [place] [address] Phone: tel:[phone] fax:[phone] Referral ID Status Reason Start Date Expiration Date Visits Re quested Visits Authorized [id number] Closed 04/07/2022 10/04/2022 1 1 Encounter Details Date Type Department Care Team (Late st Contact Info) Description 04/07/2022 Orders Only [facility] Gastroenterology at [facility] Office [address] [facility] [address] [place] [address] Jack Ordoñez MD [address] [place] [address] Gastric ulcer, unspecified chronicity, unspecified whether gastric ulcer hemorrhage or perforation present (Primary Dx) Social History Tobacco Use Types [...] Description 07/15/2024 9:00 AM EST Hospital Encounter [facility] Interventional Radiology [address] [facility] [place] [place] [address] Herve Carrillo MD [address] [facility] [address] [place] [address] documented as of this encounter Visit Diagnoses Diagnosis Gastric ulcer, unspecified chronicity, unspecified whether gastric ulcer hemorrhage or perforation present- Primary documented in this encounter Additional Health Concerns Assessment Noted Time PHQ-9 Depression Total Score: 0 12/06/19 18 3:00 PM EDT documented as of this encounter Care Teams Account Liaison Relationship Specialty Start Date End Date Edgar Fournier MD [address] [place] [address] [place] [address] PCP - General 12/22/21 Maile Valles, RN Txp Post Coordinator Transplant Hepatology 11/07/17 Jack Ordoñez MD [address] [place] [address] Consulting Physician Transplant Hepatology 01/05/18 Estephania Sharif, DarrianD Pharmacist Pharmacist 11/11/19 documented as of this encounter
--- OUTSIDE RECORDS SUMMARY | 2024-07-12 12:29 | XMS_ITS | Encounter Summary ---
Author Organization [facility] Address [facility] [place] [address] Care Team Providers Care Team Foreman Name Role Phone Maile Valles RN Unavailable Unavail able Jack Ordoñez MD Unavailable [phone] Estephania Sharif PharmD Unavailable Christine Edgar Tolentino MD Primary Care Provider [phone] Source Comments This information has been disclosed [...] release of HIV test results or diagnoses. [id number] Reason for Visit * Auth/Cert Specialty Diagnoses / Procedures Referred By Contac t Referred To Contact Cardiology Diagnoses heart failure/ pt coming from dialysis in the am. Procedures LEFT HEART CATH [facility] [address] [place] [address] Phone: tel: Referral ID Status Reason Start Date Expiration Date Visits Re quested Visits Authorized [id number] 1 1 Encounter Details Date Type Department Care Team (Latest Contact Info) Description 04/25/2022 11:40 AM EDT - 04/25/2022 7:16 PM EDT Hospital Encounter [facility] [address] [place] [address] Fermín Schulte MD Heart failure, unspecified HF chronicity, unspecified heart failure type ([facility]) Discharge Disposition: Home or Self Care WITHOUT [...] suspected to have Coronavirus/COVID-19? No / Unsure 04/25/2022 11:39 AM EDT documented as of this encounter Last Filed Vital Signs Vital Sign Reading Time Taken Comments Blood Pressure 185/87 04/25/2022 6:45 PM EDT Pulse 80 04/25/2022 6:45 PM EDT Temperature 36.5 ??C (97.7 ??F) 04/25/2022 12:19 PM E DT Respiratory Rate 16 04/25/2022 6:45 PM EDT Oxygen Saturation 95% 04/25/2022 6:30 PM EDT Inhaled Oxygen Concentration 95% 04/25/2022 6 :30 PM EDT Weight - - Height - - Body Mass Index - - documented in this encounter Discharge Instructions * Attachments The following attachments cannot be sent through Care Everywhere. * Radial Site Care (Cameroonian) documented in this encounter Medications at Time [...] mg total) by mouth if needed. 8 polyethylene glycol (MIRALAX) 17 gram packet Take 17 g by mouth daily as needed (mild constipation (no BM for 24 hrs)). 14 packet 0 testosterone cypionate (DEPOTESTOTERONE CYPIONATE) 200 mg/mL injection Inject into the muscle every 28 days. epoetin giancarlo-epbx (RETACRIT) 20,000 unit/mL SolnIndications:Ane candis in Chronic Kidney Disease Intravenous 0.25 mLs (5,000 Units total) every Monday, Monday, and Monday for 30 days. Indications: Anemia in Chronic Kidney Disease 3 mL 2 04/27/20 22 ALPRAZolam (XANAX) 0.5 MG tablet Take 1 [...] times a day with meals. 60 tablet 03/25/2022 3:34 PM EDT 2 05/05/20 22 cholecalciferol, vitamin D3, 1,250 mcg (50,000 [...] 03/25/2022 3:34 PM EDT 2 11/09/19 24 hydrALAZINE (APRESOLINE) 100 MG tablet Take 1 tablet (100 mg total) by mouth every 8 hours. 120 tablet 0 11/09/19 24 insulin aspart U-100 (NOVOLOG) 100 unit/mL injection Administers per sliding scale 3 times daily with meals 07/04/20 isosorbide mononitrate (IMDUR) 30 MG 24 hr tablet Take 3 tablets (90 mg total) by mouth daily. 90 tablet 03/25/2022 3:34 PM EDT 2 05/03/20 22 lidocaine (LIDODERM) 5 % Place 1 patch onto the skin daily as needed. 1 06/26/20 lisinopriL (PRINIVIL) 40 MG tablet Take 1 tablet (40 mg total) by mouth daily. 30 tablet 03/25/2022 3:34 PM EDT 2 05/05/20 22 magnesium oxide (MAG-OX) 400 mg tablet Take 1 tablet (400 mg total) by mouth 2 times a day. 60 tablet 03/25/2022 3:34 PM EDT 2 05/05/20 22 metoprolol succinate (TOPROL-XL) 100 MG 24 hr tablet Take 100 mg by mouth at bedtime. 2 05/05/20 22 mycophenolate (CELLCEPT) 250 mg capsule Take 1 capsule (250 mg total) by mouth 2 times a day. 180 capsule 1 05/24/2022 10:07 AM EDT 2 08/23/19 23 ondansetron (ZOFRAN-ODT) 4 MG disintegrating tablet Take 1 tablet (4 mg total) by mouth every 8 hours as needed. 8 04/28/20 24 pantoprazole (PROTONIX) 40 MG tablet Take 1 tablet (40 mg total) by mouth 2 times a day. 30 tablet 03/25/2022 3:34 PM EDT 2 05/05/20 22 proMETHazine (PHENERGAN) 12.5 MG tablet Take 1 [...] as of this encounter Progress Notes * Salo Jordan, RN - 04/25/2022 7:15 PM EDT Discharge order received. Bedrest completed at 1900. Pt removed from telemetry to ambulate and get dressed. Reviewed discharge instructions with patient including; resuming home medications per usual schedule, follow up appointment, monitoring access site, activity restrictions, and when to call the doctor. Instructed patient on what to do if bleeding occurs. Copy of AVS given to patient. Pt verbalized understanding, denies any needs/concerns/questions at this time. Pt signed copy of d/c instructions for hospital retention and given a self copy. PIV removed and pressure dressing placed to site. here to escort patient home for discharge. Pt refused hospital transportation to take patient to vehicle. SALO JORDAN * Jude Santana RN - 04/25/2022 12:28 PM EDT Pt admitted to [facility]. Verified pt name and , arm band in place. Height and weight obtained upon admission. Pt undressed and in gown in preparation of procedure. Person responsible for transportation at discharge: . Pt A&Ox3, SR per tele, Vital signs stable. Pre-procedure checklist completed. Admission assessment completed. H&P up to date. Allergies verified- armband placed. #20 PIV placed by Day, RN, blood return noted, specimen sent to lab for analysis. NPO > 6 hours. Groin shaved in preparation of procedure. Pt oriented to room and call light. Call light within reach. Non-skid socks on, bed wheels locked. Family called to bedside. Pt denies any needs/concerns at this time. Awaiting procedure. documented in this encounter H&P Notes * Jasmine Smith MD - 04/25/2022 4:22 PM EDT [facility] PRE-SEDATION ASSESSMENT, HISTORY & PHYSICAL Date: 04/25/2022 Aiden Stauffer Jr. is a 47 y.o. year old male Pre-Procedure Diagnosis/Procedure Indication: MV vegetation, pre-op evaluation Planned Procedure: [facility] NPO for solids >8 hours, NPO for liquids >8 hours Past Medical History Past Medical History: Diagnosis Date ??? Acute pancreatitis ??? Anemia ??? Ascites ??? Diabetes mellitus (CMS Dx) ??? Esophageal varices with bleeding (CMS Dx) ??? GERD (gastroesophageal reflux disease) ??? Hearing loss ??? Hepatic encephalopathy (CMS Dx) ??? Hypertension ??? Liver cirrhosis secondary to [...] ??? ABDOMINAL SURGERY ??? BACK SURGERY 04/2020 [facility] ??? COLONOSCOPY N/A 03/23/2022 Procedure: COLONOSCOPY WITH [...] mouth 2 times a day with meals. 03/25/22 Yes Alex De Guzman DO cholecalciferol, vitamin D3, 1,250 mcg (50,000 unit) [...] by mouth2 times a day. 09/16/21 Yes Jack Ordoñez MD doxazosin (CARDURA) 8 MG tablet Take 8 mg by mouth at bedtime. 05/12/18 Yes Historical Provider, entecavir (BARACLUDE) 0.5 MG tablet Take 1 tablet (0.5 mg total) by mouth every 7 days. 01/05/21 YesJack Ordoñez MD epoetin giancarlo-epbx (RETACRIT) 20,000 unit/mL Soln Intravenous 0.25 mLs (5,000 Units total) every Monday, Monday, and Monday for 30 days. Indications: Anemia in Chronic Kidney Disease 03/28/22 04/27/22 Yes Alex De Guzman DO fenofibrate micronized (LOFIBRA) 134 MG capsule Take [...] daily with meals Yes Historical Provider, isosorbide mononitrate (IMDUR) 30 MG 24 hr tablet Take 3 tablets (90 mg total) by mouth daily. 03/26/22 Yes Alex De Guzman DO lisinopriL (PRINIVIL) 40 MG tablet Take 1 tablet (40 mg total) by mouth daily. 03/26/22 Yes Alex De Guzman DO magnesium oxide (MAG-OX) 400 mg tablet Take 1 tablet (400 mg total) by mouth 2 times a day. 03/25/22Yes Alex De Guzman DO methocarbamoL (ROBAXIN) 500 MG tablet Take 500 [...] times a day. 04/23/18 Yes Historical Provider, polyethylene glycol (MIRALAX) 17 gram packet Take 17 g by mouth daily as needed (mild constipation (no BM for 24 hrs)). 06/25/20 Yes Jake Zavala MD proMETHazine (PHENERGAN) 12.5 MG [...] total) by mouth 2 times a day. 03/25/22 Alex De Guzman DO Allergies: Tacrolimus Codeine Sulfate Codeine Abbreviated Review of Systems (ROS) Functional Capacity: AQUINO ACTIVITY SCALE: 3 - Walking on a flat surface for one or two blocks. Chest Pain: no Shortness of Breath/Dyspnea or Exertion: no Recent URI: no Airway, ASA Score & Sedation Specific History Concerns Mallampati: II Mouth Opening: > 4 cm Facial Hair: Yes Short Neck: Yes ASA Score: III - Moderate systematic disease with functional limitations Sedation-Specific History Concerns: None This patient was re-evaluated immediately prior to sedation administration. Focused Physical Exam: Height ; Weight ; BMI There is no height or weight on file to calculate BMI. Vitals: 04/25/22 1730 BP: (!) 210/107 Pulse: 90 Resp: Temp: SpO2: Neuro: No FNDs Cardiovascular: S1 S2 present Respiratory: CTABL Sedation Plan: Versed and fentanyl. Antibiotic prophylaxis is not indicated. Cosigned by Fermín Schulte MD at 05/10/2022 9:38 PM EDT Associated attestation - Fermín Schulte MD - 05/10/2022 9:38 PM EDT Agree with the assessment and plan as noted above Fermín Schulte MD Advanced Heart Failure Interventional Cardiovascular Disease Pager [phone] documented in this encounter Nursing Notes * Jasmine Smith MD - 04/25/2022 6:24 PM EDT [facility] Department of Cardiovascular Health and Diseases Cardiology Post Sedation Note Patient: Aiden Stauffer Jr. Procedure(s) Performed: [facility] Anesthesia type: Versed and fentanyl Patient location: Telemetry/Step Down Unit Post pain: Adequate analgesia Post assessment: no apparent anesthetic complications and tolerated procedure well Last Vitals: Vitals: 04/25/22 1730 BP: (!) 210/107 Pulse: 90 Resp: Temp: SpO2: Post vital signs: stable Level of consciousness: awake, alert and oriented Complications: None Findings: Normal coronaries. Elevated left sided filling pressures. Valvular non-ischemic cardiomyopathy. Uncontrolled HTN. LVEDP: 38 For full details, please review the full findings and report listed in [facility]. Cosigned by Fermín Schulte MD at 05/10/2022 9:38 PM EDT Associated attestation - Fermín Schulte MD - 05/10/2022 9:38 PM EDT Agree with the assessment and plan as noted above Fermín Schulte MD Advanced Heart Failure Interventional Cardiovascular Disease Pager [phone] documented in this encounter Plan of Treatment Upcoming Encounters Date Type Department Care Team (Late st Contact Info) Description 07/15/2024 9:00 AM EST Hospital Encounter [facility] Interventional Radiology [address] [place] [phone] Herve Carrillo MD [address] [facility] [address] [facility] [place] [phone] documented as of this encounter Procedures Procedure Name Priority Date/Time Associated Diagnosis Comments LEFT HEART CATH Routine 04/25/2022 3:56 PM EDT Heart failure, unspecified HF chronicity, unspecified heart failure type (CMS-HCC) ECG 12-LEAD (MUSE) STAT 04/25/2022 12 :04 PM EDT PROTIME-INR STAT 04/25/2022 12:03 PM EDT CBC STAT 04/25/2022 12:03 PM EDT BASIC METABOLIC PANEL STAT 04/25/2022 12:03 PM EDT CARDIAC CATH DOCUMENTS SCAN 04/25/2022 4:01 AM EDT EKG - SCAN 04/25/2022 documented in this encounter Results * LEFT HEART CATH (04/25/2022 3:56 PM EDT) 04/25/2022 2:37 PM EDT Narrative [facility] - 05/10/2022 3:59 PM EDT *[facility]* Cardiac Hardware Installer [address], [place] [address] CATHETERIZATION LAB STUDY Patient: ? Aiden Stauffer ?Age: ?47 ?Study Date: ? 04/25/2022 ? Gender: M ? Study Time: ? 02:37:04 PM : ? 1975 ? HT/WT: ??175.3cm / 131.8kg ? Performing Physician: ?Fermín Schulte MD Ordering Physician: ?Fermín Schulte MD Referring Physician: ? Humza Riley Fellow: ?Jasmine Smith MD Procedures performed: - Left coronary angiography. - Right coronary angiography. - Left heart catheterization. IMPRESSIONS: 1. Normal coronary arteries. 2. Non-ischemic cardiomyopathy. 3. Elevated left sided filling pressures. 4. Uncontrolled hypertension. RECOMMENDATIONS: ??Further care of volume control and valvular cardiomyopathy per primary inpatient team. INDICATIONS: ?? Congestive heart failure. ??Heart Failure Systolic (I50.20). PROCEDURE IN DETAIL: ?? Study status: ??Cardiac cath: elective. Consent: ??The risks, benefits, and alternatives to the procedure and sedation were explained to the patient and informed consent was obtained. ? Location: ??Catheterization laboratory. PROCEDURE: 1. Initial setup. The patient was brought to the laboratory in a fasting state. Surface ECG leads, ?? blood pressure measurements, and pulse oximetric signals were monitored. 2. Skin preparation. The planned puncture sites were prepped and draped in the usual sterile manner. 3. Right radial artery access. A [id number] glidesheath - slender - .021 sheath was advanced into the ?? vessel. 4. Selective left coronary angiography. A [id number] tig 4.0 catheter was introduced. Contrast was ?? injected. Images were obtained using multiple projections. 5. Selective right coronary angiography. A [id number] tig 4.0 catheter was introduced. Contrast was ?? injected. Images were obtained using multiple projections. 6. Left heart catheterization. 7. Right radial artery hemostasis. The sheath was removed. Vessel closure was achieved with a lrg tr ?? band l device. 8. Sedation. The procedure was performed using moderate (conscious) sedation under my personal ?? supervision. A trained, dedicated, and qualified observer monitored the patient. The following ?? parameters were monitored: oxygen saturation, heart rate, blood pressure, respiratory rate, ?? adequacy of pulmonary ventilation, and response to care. Sedation and monitoring were provided ?? for greater than 15 minutes. STUDY COMPLETION: ??The patient tolerated the procedure well. There were no complications. ??Contrast: ?? Omnipaque 350 55ml (total dose). ??Omnipaque 350 45ml (wasted). CORONARY ARTERIES: ?? The coronary circulation is [...] Normal-sized. ASHA grade 3 flow (brisk flow). Hemodynamics: Circulatory function: + + + !Stage description ?!Condition 1 - ?! + + + !LV pressure s/d, ed ?!155/14, 38, dP/rx=5221rq Hg/s! + + + !Aortic pressure s/d (m)!153/70 (113) ? ! + + + ATTESTATION: Dr. Fermín Schulte was present for the entire procedure. Dr. Jasmine Smith was the initial author of this report. Prepared and electronically signed by Fermín Schulte MD [id number] Procedure Note Fermín Schulte MD - 05/10/2022 *[facility]* Cardiac Hardware Installer [address] [place] [id number] CATHETERIZATION LAB STUDY Patient: Aiden Stauffer Age: 47 StudyDate: 04/25/2022 Gender: M StudyTime: 02:37:04 PM : 1975 HT/WT: 175.3cm / 131.8kg Performing Physician: Fermín Schulte MD Ordering Physician: Fermín Schulte MD Referring Physician: Humza Riley Fellow: Jasmine Smith MD Procedures performed: - Left coronary angiography. - Right coronary angiography. - Left heart catheterization. IMPRESSIONS: 1. Normal coronary arteries. 2. Non-ischemic cardiomyopathy. 3. Elevated left sided filling pressures. 4. Uncontrolled hypertension. RECOMMENDATIONS: Further care of volume control and valvular cardiomyopathy per primary inpatient team. INDICATIONS: Congestive heart failure. Heart Failure Systolic (I50.20). PROCEDURE IN DETAIL: Study status: Cardiac cath: elective. Consent: The risks, benefits, and alternatives to the procedure and sedation were explained to the patient and informed consent was obtained. Location: Catheterization laboratory. PROCEDURE: 1. Initial setup. The patient was brought to the laboratory in a fastingstate. Surface ECG leads, blood pressure measurements, and pulse oximetric signals weremonitored. 2. Skin preparation. The planned puncture sites were prepped and draped inthe usual sterile manner. 3. Right radial artery access. A [id number] glidesheath - slender - .021sheath was advanced into the vessel. 4. Selective left coronary angiography. A [id number] tig 4.0 catheter wasintroduced. Contrast was injected. Images were obtained using multiple projections. 5. Selective right coronary angiography. A [id number] tig 4.0 catheter wasintroduced. Contrast was injected. Images were obtained using multiple projections. 6. Left heart catheterization. 7. Right radial artery hemostasis. The sheath was removed. Vessel closurewas achieved with a lrg tr band l device. 8. Sedation. The procedure was performed using moderate (conscious)sedation under my personal supervision. A trained, dedicated, and qualified observer monitored thepatient. The following parameters were monitored: oxygen saturation, heart rate, bloodpressure, respiratory rate, adequacy of pulmonary ventilation, and response to care. Sedation andmonitoring were provided for greater than 15 minutes. STUDY COMPLETION: The patient tolerated the procedure well. There were no complications. Contrast: Omnipaque 350 55ml (total dose). Omnipaque 350 45ml (wasted). CORONARY ARTERIES: The coronary circulation is right [...] Normal-sized. ASHA grade 3 flow (brisk flow). Hemodynamics: Circulatory function: + + + !Stage description !Condition 1 - ! + + + !LV pressure s/d, ed !155/14, 38, dP/sw=1425lu Hg/s! + + + !Aortic pressure s/d (m)!153/70 (113) ! + + + ATTESTATION: Dr. Fermín Schulte was present for the entire procedure. Dr. Jasmine Smith was the initial author of this report. Prepared and electronically signed by Fermín Schulte MD [id number] us Fermín [place] [id number] Final Result Performing Organization Address City/[facility] Co de Phone Number [facility] * ECG 12 lead (MUSE) (04/25/2022 12:04 PM EDT) 04/25/2022 12:0 4 PM EDT Narrative MUSE - 04/25/2022 5:24 PM EDT Ventricular Rate: ??80 ??BPM Atrial Rate: ??80 ??BPM P-R Interval: ??208 ??ms QRS Duration: ??106 ??ms QT: ??446 ??ms QTc: ??514 ??ms P [place]: ??62 ??degrees R [place]: ??66 ??degrees T [place]: ??32 ??degrees Diagnosis Line: ??NORMAL SINUS RHYTHM ^ PROLONGED QT ^ ABNORMAL ECG ^ COMPARED TO THE ECG OF 18-MAR-2022 00:43, ^ THERE IS NO SIGNIFICANT CHANGE ^ Confirmed by MD WIN, KALINA ([id number]) on 04/25/2022 5:24:41 PM us Argenis Singh [facility] ECG ORDERABLES Final Result Performing Organization Address [facility] Co de Phone Number MUSE * (ABNORMAL) Protime-INR (04/25/2022 12:03 PM EDT) Protime 15.3(H) 12.1 - 15.1 seconds 04/25/2022 12:34 PM EDT HEALTH LAB INR 1.2(H) 0.9 - 1.1 04/25/2022 12:34 PM EDT HEALTH LAB Comment: RECOMMENDED THERAPEUTIC RANGES USING INR : ?Stable oral anticoagulant therapy: ? 2.0 - 3.0 ?Mechanical prosthetic heart valve: ? 2.5 - 3.5 ?Recurrent acute myocardial infarction: ? 2.5 - 3.5 Plasma 04/25/2022 12:0 3 PM EDT 04/25/2022 12:21 PM EDT Narrative [facility] - 04/25/2022 12:34 PM EDT If not done within 14 days or preform day of procedure for any patients with liver issues or on Coumadin us Argenis Singh OFFICE SUPPORT LAB BLOOD ORDERABLES Final Re sult Performing Organization Address City/State/[facility] Co de Phone Number [facility] [address] * (ABNORMAL) Basic metabolic panel (04/25/2022 12:03 PM EDT) Sodium 143 133 - 146 mmol/L 04/25/2022 12:53 PM EDT [facility] Potassium 4.1 3.5 - 5.3 mmol/L 04/25/2022 12:53 PM EDT [facility] Chloride 98 98 - 110 mmol/L 04/25/2022 12:53 PM EDT [facility] CO2 30 21 - 33 mmol/L 04/25/2022 12:53 PM EDT [facility] Anion Gap 15 3 - 16 mmol/L 04/25/2022 12:53 PM EDT [facility] BUN 51(H) 7 - 25 mg/dL 04/25/2022 12:53 PM EDT [facility] Creatinine 7.80(H) 0.60 - 1.30 mg/dL 04/25/2022 12:53 PM EDT [facility] Glucose 85 70 - 100 mg/dL 04/25/2022 12:53 PM EDT [facility] Calcium 9.2 8.6 - 10.3 mg/dL 04/25/2022 12:53 PM EDT [facility] Osmolality, Calculated 309(H) 278 - 305 mOsm/kg 04/25/2022 12:53 PM EDT [facility] EGFR 8 04/25/2022 12:53 PM EDT [facility] Comment:As of 2021, the estimated GFR [...] Disease. Am J Kidney Dis. 2020. Plasma 04/25/2022 12:0 3 PM EDT 04/25/2022 12:21 PM EDT Narrative [facility] - 04/25/2022 12:53 PM EDT If not done within 14 days or previous BMP results were abnormal us Argenis Singh OFFICE SUPPORT LAB BLOOD ORDERABLES Final Re sult [facility] [address] * (ABNORMAL) CBC (04/25/2022 12:03 PM EDT) WBC 4.1 3.8 - 10.8 10E3/uL 04/25/2022 12:34 PM EDT [facility] RBC 2.85(L) 4.20 - 5.80 10E6/uL 04/25/2022 12:34 PM EDT [facility] Hemoglobin 9.3(L) 13.2 - 17.1 g/dL 04/25/2022 12:34 PM EDT [facility] Hematocrit 27.9(L) 38.5 - 50.0 % 04/25/2022 12:34 PM EDT [facility] MCV 97.8 80.0 - 100.0 fL 04/25/2022 12:34 PM EDT [facility] MCH 32.6 27.0 - 33.0 pg 04/25/2022 12:34 PM EDT [facility] MCHC 33.3 32.0 - 36.0 g/dL 04/25/2022 12:34 PM EDT [facility] RDW 13.6 11.0 - 15.0 % 04/25/2022 12:34 PM EDT [facility] Platelets 228 140 - 400 10E3/uL 04/25/2022 12:34 PM EDT [facility] MPV 6.9(L) 7.5 - 11.5 fL 04/25/2022 12:34 PM EDT [facility] Whole Blood 04/25/2022 12:0 3 PM EDT 04/25/2022 12:21 PM EDT Narrative [facility] - 04/25/2022 12:34 PM EDT If not done within 14 days or if previous CBC results were abnormal us Argenis Singh [facility] BLOOD ORDERABLES Final Re sult Performing Organization Address City/State/[facility] Co de Phone Number [facility] [address] * CARDIAC CATH DOCUMENTS SCAN (04/25/2022 4:01 AM EDT) us Scanning [facility]him SCAN DOCS - NO RESULTS Final Res ult * EKG - SCAN (04/25/2022) us Scanning [facility] SCAN DOCS - NO RESULTS Final Res ult documented in this encounter Visit Diagnoses Diagnosis Heart failure, unspecified HF chronicity, unspecified heart failure type (CMS-HCC) Heart failure, unspecified HF chronicity, unspecified heart failure type (CMS-HCC) documented in this encounter Administered Medications Inactive Administered Medications - up to 3 most recent administrations Medication Order MAR Action Action Date Dose Rate Site acetaminophen (TYLENOL) tablet 975 mg 975 mg, Oral, Every 6 hours PRN, mild pain (NRS 1-3), moderate pain (NRS-4-6), Starting on 04/25/22 at 1449, Maximum dose of acetaminophen is 4000 mg (4 grams) from all sources in 24 hours. Given 04/25/2022 2:26 PM EDT 975 mg aspirin chewable tablet 243 mg 243 mg, Oral, Once, On Mon04/25/22 at 1200, For 1 dose, If patient took 81 mg day of procedure, give 243 mg Aspirin. Administer prior to procedure., Pre-Procedure(Invasive Cardiology) Given 04/25/2022 2:19 PM EDT 243 mg atropine injection 0.5 mg 0.5 mg, Intravenous, Use as directed PRN, Other, vasovagal reaction with heart rate less than 50 bpm, Starting on Mon04/25/22 at 1629, For 12 hours, May repeat every 2 minutes up to 4 doses., Post-Procedure(Invasive Cardiology) fentaNYL (SUBLIMAZE) injection 12.5 mcg 12.5 mcg, Intravenous, Once, On Mon04/25/22 at 1530, For 1 dose, HIGH ALERT MEDICATION Given 04/25/2022 3:21 PM EDT 12.5 mcg midazolam (PF) (VERSED) injection 0.5 mg 0.5 mg, Intravenous, Once, On Mon04/25/22 at 1530, For 1 dose Given 04/25/2022 3:21 PM EDT 0.5 mg sodium chloride 0.9 % infusion 1,000 mL 1,000 mL, Intravenous, Continuous, Starting on Mon04/25/22 at 1200, Pre-Procedure(Invasive Cardiology), at 50 mL/hr New Bag 04/25/2022 2:20 PM EDT 1,000 mLs 50 mL/hr sodium chloride 0.9 % infusion 999 mL/hr, Intravenous, Use as directed PRN, vasovagal reaction, Starting on Mon04/25/22 at 1629, For 12 hours, Post-Procedure(Invasive Cardiology) documented in this encounter Active and Recently Administered Medications Times are shown in EDT. Scheduled Medication Order 04/23/2022 04/24/2022 04/25/2022 aspirin chewable tablet 243 mg (COMPLETED)(Linked Group 1) 243 mg, Oral, Once, On Mon04/25/22 at 1200, For 1 dose, If patient took 81 mg day of procedure, give 243 mg Aspirin. Administer prior to procedure., Pre-Procedure(Invasive Cardiology) 1419 (Given - Provid er: Jude Santana RN) fentaNYL (SUBLIMAZE) injection 12.5 mcg (COMPLETED) 12.5 mcg, Intravenous, Once, On Mon04/25/22 at 1530, For 1 dose, HIGH ALERT MEDICATION 1521 (Given - Provid er: Gena Shields RN) midazolam (PF) (VERSED) injection 0.5 mg (COMPLETED) 0.5 mg, Intravenous, Once, On Mon04/25/22 at 1530, For 1 dose 1521 (Given - Provid er: Gena Shields RN) Continuous Medication Order 04/23/2022 04/24/2022 04/25/2022 sodium chloride 0.9 % infusion 1,000 mL 1,000 mL, Intravenous, Continuous, Starting on Mon04/25/22 at 1200, Pre-Procedure(Invasive Cardiology), at 50 mL/hr 1420 (New Bag - Prov ider: Jude Santana RN) PRN Medication Order 04/23/2022 04/24/2022 04/25/2022 acetaminophen (TYLENOL) tablet 975 mg 975 mg, Oral, Every 6 hours PRN, mild pain (NRS 1-3), moderate pain (NRS-4-6), Starting on Mon04/25/22 at 1449, Maximum dose of acetaminophen is 4000 mg (4 grams) from all sources in 24 hours. 1426 (Given - Provid er: Jude Santana RN) atropine injection 0.5 mg 0.5 mg, Intravenous, Use as directed PRN, Other, vasovagal reaction with heart rate less than 50 bpm, Starting on Mon04/25/22 at 1629, For 12 hours, May repeat every 2 minutes up to 4 doses., Post-Procedure(Invasive Cardiology) fentaNYL (SUBLIMAZE) injection (CANCELED) Intra-op PRN, Starting on Mon04/25/22 at 1538, Intra-procedure(Invasive Cardiology) 1538 (Given - Provid er: Gena Shields RN) heparin (porcine) injection (CANCELED) Intra-op PRN, Starting on Mon04/25/22 at 1545, Intra-procedure(Invasive Cardiology) 1545 (Given - Provid er: Gena Shields RN) hydrALAZINE (APRESOLINE) 20 mg/mL injection (CANCELED) Intra-op PRN, Starting on Mon04/25/22 at 1533, Intra-procedure(Invasive Cardiology) 1533 (Given - Provid er: Gena Shields RN) midazolam (PF) (VERSED) injection (CANCELED) Intra-op PRN, Starting on Mon04/25/22 at 1538, Intra-procedure(Invasive Cardiology) 1538 (Given - Provid er: Gena Shields RN) OMNIPAQUE (iohexol) 350 mg iodine/mL (CANCELED) Intra-op PRN, Starting on Mon04/25/22 at 1548, Intra-procedure(Invasive Cardiology) 1548 (Given - Provid er: Fermín Schulte MD - Comment: 55/100) sodium chloride 0.9 % infusion 999 mL/hr, Intravenous, Use as directed PRN, vasovagal reaction, Starting on Mon04/25/22 at 1629, For 12 hours, Post-Procedure(Invasive Cardiology) verapamiL (ISOPTIN) injection (CANCELED) Intra-op PRN, Starting on Mon04/25/22 at 1540, Intra-procedure(Invasive Cardiology) 1540 (Given - Provid er: Fermín Schulte MD) No Frequency Medication Order 04/23/2022 04/24/2022 04/25/2022 aspirin 81 MG chewable tablet Starting on Mon04/25/22 at 1159, For 1 dose, Created by cabinet override 1426 (Canceled Entry - Provider: Jude Santana RN) Linked Groups Order Group 1: aspirin chewable tablet 243 mg (COMPLETED)Jump to med 243 mg, Oral, Once, On Mon04/25/22 at 1200, For 1 dose, If patient took 81 mg day of procedure, give 243 mg Aspirin. Administer prior to procedure., Pre-Procedure(Invasive Cardiology) Or aspirin tablet 325 mg (COMPLETED) 325 mg, Oral, Once, On Mon04/25/22 at 1200, For 1 dose, Administer prior to procedure., Pre-Procedure(Invasive Cardiology) documented in this encounter Additional Health Concerns Assessment Noted Time PHQ-9 Depression Total Score: 0 12/06/19 18 3:00 PM EDT documented as of this encounter Care Teams Team Foreman Relationship Specialty Start Date End Date Edgar Fournier MD [address] [place] [address] [place] [phone] PCP - General 12/22/21 Maile Valles, RN Txp Post Coordinator Transplant Hepatology 11/07/17 Jack Ordoñez MD [address] [place] [phone] Consulting Physician Transplant Hepatology 01/05/18 Estephania Sharif, PharmD Pharmacist Pharmacist 11/11/19 documented as of this encounter
--- OUTSIDE RECORDS SUMMARY | 2024-07-12 12:29 | XMS_ITS | Encounter Summary ---
Author Organization [facility] Address [address] [place] [address] Care Team Providers Care Vascular Physician Name Role Phone Maile Valles RN Unavailable Unavail able Jack Ordoñez MD Unavailable [phone] Estephania Sharif PharmD Unavailable Christine Edgar Tolentino MD Primary Care Provider [phone] Source Comments This information has been disclosed [...] release of HIV test results or diagnoses. [id number] Health Encounter Details Date Type Department Care Team (Latest Contact Info) Description 04/12/2022 1:00 PM EDT Office Visit [facility] Transplant Related Interdisciplinary Metabolic Surgery at [address] [address] Nadya Wilhelm, PhD, UX MANAGER-S Obesity, Class III, BMI 40-49.9 (morbid obesity) (CMS-HCC) (Primary Dx) Social History Tobacco Use Types [...] AM EDT documented as of this encounter Progress Notes * Nadya Wilhelm PhD, UX MANAGER-S - 04/12/2022 1:00 PM EDT 04/12/22 LWS Tried to reach pt on [facility] to complete testin HADS and EAT-26 so we could complete his eval today Logged into the call to which [facility] said he was connected but he was not Asked staff to reach out to pt with testing materials and advice for the appointment Waited until 12:25 for response orconnection but did not receive. Will have staff r/s visit and support pt to complete testing per protocol documented in this encounter Plan of Treatment Upcoming Encounters Date Type Department Care Team (Late st Contact Info) Description 07/15/2024 9:00 AM EST Hospital Encounter [facility] Interventional Radiology [address] [place] [phone] Herve Carrillo MD [address] [facility] [place] [phone] documented as of this encounter Visit Diagnoses Diagnosis Obesity, Class III, BMI 40-49.9 (morbid obesity) (CMS-HCC)- Primary documented in this encounter Additional Health Concerns Assessment Noted Time PHQ-9 Depression Total Score: 0 12/06/19 18 3:00 PM EDT documented as of this encounter Care Teams Vascular Physician Relationship Specialty Start Date End Date Edgar Fournier MD [address] [place] [phone] PCP - General 12/22/21 Maile Valles, RN Txp Post Coordinator Transplant Hepatology 11/07/17 Jack Ordoñez MD [address] [place] [phone] Consulting Physician Transplant Hepatology 01/05/18 Estephania Sharif, DarrianD Pharmacist Pharmacist 11/11/19 documented as of this encounter
--- OUTSIDE RECORDS SUMMARY | 2024-07-12 12:29 | XMS_ITS | Encounter Summary ---
Author Organization [facility] Address [facility] [place] [address] Care Team Providers Care Topographical Engineer Name Role Phone Maile Valles RN Unavailable Unavail able Jack Ordoñez MD Unavailable [phone] Estephania Sharif PharmD Unavailable Christine Edgar Tolentino MD Primary Care Provider [phone] Source Comments This information has been disclosed [...] release of HIV test results or diagnoses. [id number] Health Encounter Details Date Type Department Care Team (Latest Contact Info) Description 04/25/2022 Travel Social History Tobacco Use Types Packs/Day [...] you are drinking? Patient does not drink 08/07/202 2 Q3: How often do you have [...] Description 07/15/2024 9:00 AM EST Hospital Encounter [facility] Interventional Radiology [address] [place] [phone] Herve Carrillo MD [address] [facility] [address] [place] [address] documented as of this encounter Visit Diagnoses Not on filedocumented in this encounter Additional Health Concerns Assessment Noted Time PHQ-9 Depression Total Score: 0 12/06/19 18 3:00 PM EDT documented as of this encounter Care Teams Topographical Engineer Relationship Specialty Start Date End Date Edgar Fournier MD [address] [place] [phone] PCP - General 12/22/21 Maile Valles, RN Txp Post Coordinator Transplant Hepatology 11/07/17 Jack Ordoñez MD [address] [place] [phone] Consulting Physician Transplant Hepatology 01/05/18 Estephania Sharif, DarrianD Pharmacist Pharmacist 11/11/19 documented as of this encounter
--- OUTSIDE RECORDS SUMMARY | 2024-07-12 12:29 | XMS_ITS | Encounter Summary ---
Author Organization [facility] Address [address] [place] [address] Care Team Providers Care Tower Crane Operator Name Role Phone Maile Valles RN Unavailable Unavail able Jack Ordoñez MD Unavailable [phone] Estephania Sharif PharmD Unavailable Christine Edgar Tolentino MD Primary Care Provider [phone] Source Comments This information has been disclosed [...] release of HIV test results or diagnoses. [id number] Health Encounter Details Date Type Department Care Team (Late st Contact Info) Description 04/26/2022 1:00 PM EDT - 04/26/2022 1:39 PM EDT Surgery [facility] Electrophysiology Lab [address] [place] [phone] Thania Carvajal MD [address] [place] [address] [employer] Social History Tobacco Use Types Packs/Day Years [...] suspected to have Coronavirus/COVID-19? No / Unsure 04/26/2022 11:53 AM EDT documented as of this encounter Plan of Treatment Upcoming Encounters Date Type Department Care Team (Late st Contact Info) Description 07/15/2024 9:00 AM EST Hospital Encounter [facility] Interventional Radiology [address] [place] [address] Herve Carrillo MD [address] [facility] [address] Surgery [place] [phone] Pending Results Name Type Priority Associated Diagnoses Date /Time EP Study Electrophysiology Routine 022 7:23 AM EDT documented as of this encounter Visit Diagnoses Not on filedocumented in this encounter Additional Health Concerns Assessment Noted Time PHQ-9 Depression Total Score: 0 12/06/19 18 3:00 PM EDT documented as of this encounter Care Teams Tower Crane Operator Relationship Specialty Start Date End Date Edgar Fournier MD [address] [place] [address] [place] [phone] PCP - General 12/22/21 Maile Valles, RN Txp Post Coordinator Transplant Hepatology 11/07/17 Jack Ordoñez MD [address] [place] [phone] Consulting Physician Transplant Hepatology 01/05/18 Estephania Sharif, DarrianD Pharmacist Pharmacist 11/11/19 documented as of this encounter
--- OUTSIDE RECORDS SUMMARY | 2024-07-12 12:29 | XMS_ITS | Encounter Summary ---
Author Organization [facility] Address [address] [place] [address] Care Team Providers Care Sludge Filtration Attendant Name Role Phone Maile Valles RN Unavailable Unavail able Jack Ordoñez MD Unavailable [phone] Estephania Sharif PharmD Unavailable Christine Edgar Tolentino MD Primary Care Provider [phone] Source Comments This information has been disclosed [...] release of HIV test results or diagnoses. [id number] Reason for Referral * Imaging/Cardiovascular Scan (Routine) - Closed Specialty Diagnoses / Procedures Referred By Declan hines Referred To Contact Cardiology Diagnoses Mitral valve vegetation Procedures Echo Transesophageal (SOCRATES) Humza Riley CNP Referral ID Status Reason Start Date Expiration Date Visits Re quested Visits Authorized [id number] Closed 04/19/2022 06/17/2022 1 2 Reason for Visit * Auth/Cert Specialty Diagnoses / Procedures Referred By Contac t Referred To Contact Cardiology [facility] Echocardiography Laboratory [address] [place] [address] Phone: tel: Referral ID Status Reason Start Date Expiration Date Visits Re quested Visits Authorized [id number] 1 1 Encounter Details Date Type Department Care Team (Latest Contact Info) Description 04/26/2022 11:59 AM EDT - 04/26/2022 11:59 PM EDT Hospital Encounter [facility] Echocardiography Laboratory [address] [place] [id number] Humza Riely CNP Mitral valve vegetation Discharge Disposition: Home or Self Care WITHOUT [...] Sign Reading Time Taken Comments Blood Pressure 155/98 04/26/2022 1:11 PM EDT RT arm Pulse 78 04/26/2022 12:58 PM EDT Temperature - - Respiratory Rate 19 04/26/2022 12:58 PM EDT Oxygen Saturation 98% 04/26/2022 12:58 PM EDT Inhaled Oxygen Concentration 98% 04/26/2022 1 2:58 PM EDT Weight - - Height - - Body Mass Index - - documented in this encounter Medications at Time [...] times daily with meals 07/04/20 22 isosorbide mononitrate (IMDUR) 30 MG 24 hr [...] as of this encounter Progress Notes * Fortino Osborn MD - 04/26/2022 3:21 PM EDT Sedation Post-op Note Patient: Aiden Oviedo Eh Marques Procedure(s) Performed: SOCRATES Small mitral annular calcification. Anesthesia type: MAC Patient location: echo Post pain: Adequate analgesia Post assessment: no apparent anesthetic complications Last Vitals: Vitals: 04/26/22 1311 BP: (!) 155/98 Pulse: Resp: SpO2: Post vital signs: stable Level of consciousness: awake, alert and oriented Complications: None Cosigned by Zane Coulter MD at 04/26/2022 4:23 PM EDT Associated attestation - Zane Coulter MD - 04/26/2022 4:23 PM EDT Zane Coulter M.D. [employer] consultant/ Cardiology Advanced Heart Failure, Mechanical Circulatory Support and Heart Transplantation documented in this encounter H&P Notes * Fortino Osborn MD - 04/26/2022 1:28 PM EDT [facility] PRE-SEDATION ASSESSMENT, HISTORY & PHYSICAL Date: 04/26/2022 Aiden Stauffer Jr. is a 47 y.o. year old male Pre-Procedure Diagnosis/Procedure Indication: mitral valve mass Planned Procedure: SOCRATES NPO for solids >8 hours, NPO for [...] ??? ABDOMINAL SURGERY ??? BACK SURGERY 04/2020 [facility] ??? COLONOSCOPY N/A 03/23/2022 Procedure: [...] ESOPHAGOGASTRODUODENOSCOPY N/A 08/11/2020 Procedure: EGD; Surgeon: Tej Sulliavn MD; Location: ENDOSCOPY; Service: Gastroenterology; Laterality: N/A; [...] Left Heart Cath with possible PCI; Surgeon: Ferímn Schulte MD; Location: CARDIAC CATH LABS; Service: [...] daily with breakfast. 10/17/17 YesBere Feng CNP carBAMazepine (TEGRETOL) 200 mg tablet Take 200 mg by mouth 2 times a day. Yes Historical Provider, carvediloL (COREG) 12.5 MG tablet Take 1 tablet (12.5 mg total) by mouth 2 times a day with meals. 03/25/22 Yes Alex De Guzman, DO cinacalcet (SENSIPAR) 30 MG tablet Take 1 tablet (30 mg total) by mouth daily with breakfast. 03/26/22 Yes Alex De Guzman, DO cycloSPORINE modified (CYCLOSPORINE MODIFIED) 25 MG capsule Take 4 capsules (100 mg total) by mouth2 times a day. 09/16/21 Yes Jack Ordoñez MD doxazosin (CARDURA) 8 MG tablet Take 8 mg by mouth at bedtime. 05/12/18 Yes Historical Provider, entecavir (BARACLUDE) 0.5 MG tablet Take 1 tablet (0.5 mg total) by mouth every 7 days. 01/05/21 YesJack Ordoñez MD fenofibrate micronized (LOFIBRA) 134 MG [...] times a day. 04/23/18 Yes Historical Provider, pantoprazole (PROTONIX) 40 MG tablet Take 1 tablet (40 mg total) by mouth 2 times a day. 03/25/22 Yes Alex De Guzman DO sevelamer carbonate (RENVELA) 800 mg tablet Take 1,600 mg by mouth 3 times a day with meals. Yes Historical Provider, VASCEPA 1 gram Cap TAKE 2 Capsule by mouth twice daily 03/08/22 Yes Historical Provider, ALPRAZolam (XANAX) 0.5 MG tablet Take 0.5 mg by mouth if needed for Sleep. Historical Provider, calcium acetate,phosphat bind, (PHOSLO) 667 mg capsule Take 667 mg by mouth 3 times a day with meals. Historical Provider, cholecalciferol, vitamin D3, 1,250 mcg (50,000 unit) capsule Take 1 capsule by mouth three times weekly on Monday, , and Monday. 01/06/22 Historical Provider, epoetin giancarlo-epbx (RETACRIT) 20,000 unit/mL Soln Intravenous 0.25 mLs (5,000 Units total) every Monday, Monday, and Monday for 30 days. Indications: Anemia in Chronic Kidney Disease 03/28/22 04/27/22 Alex De Guzman DO lidocaine (LIDODERM) 5 % Place 1 patch onto the skin daily as needed. 04/26/21 Historical Provider, ondansetron (ZOFRAN-ODT) 4 MG disintegrating tablet Take 4 mg by mouth every 8 hours as needed. 04/11/18 Historical Provider, polyethylene glycol (MIRALAX) 17 gram packet Take 17 g by mouth daily as needed (mild constipation (no BM for 24 hrs)). 06/25/20 Jake Zavala MD proMETHazine (PHENERGAN) 12.5 MG tablet Take 12.5 mg by mouth every 6 hours as needed. Historical Provider, testosterone cypionate (DEPOTESTOTERONE CYPIONATE) 200 mg/mL injection Inject into the muscle. Historical Provider, Allergies: Tacrolimus Codeine Sulfate Codeine Abbreviated Review of Systems (ROS) Functional Capacity: AQUINO ACTIVITY SCALE: 4 - Raking leaves; weeding or pushing a power mower. Chest Pain: no Shortness of Breath/Dyspnea or Exertion: no Recent URI: no Airway, ASA Score & Sedation Specific History Concerns Mallampati: III Mouth Opening: < 4 cm Facial Hair: No Short Neck: No ASA Score: III - Moderate systematic disease with functional limitations Sedation-Specific History Concerns: Sleep apnea or use of CPAP/bilevel This patient was re-evaluated immediately prior to sedation administration. Focused Physical Exam: Height ; Weight ; BMI There is no height or weight on file to calculate BMI. Vitals: 04/26/22 1258 BP: (!) 225/107 Pulse: 78 Resp: 19 SpO2: 98% Neuro: nfd Cardiovascular: no murmur Respiratory: ctab Sedation Plan: MAC Antibiotic prophylaxis is not indicated. Cosigned by Zane Coulter MD at 04/26/2022 2:44 PM EDT Associated attestation - Zane Coulter MD - 04/26/2022 2:44 PM EDT Zane Coulter M.D. [employer] consultant/ Cardiology Advanced Heart Failure, Mechanical Circulatory Support and Heart Transplantation documented in this encounter Nursing Notes * Deb Lopez RN - 04/26/2022 2:34 PM EDT To EP lab per bed with 2 RNs. * Deb Lopez RN - 04/26/2022 2:[address] Humble Dorado, Anesthesiologist is here talking to the patient and explaining the SOCRATES to him. documented in this encounter ED Notes * Deb Lopez RN - 04/26/2022 12:[address] Osborn is explaining the SOCRATES to the patient. His questions were answered. Consents signed. documented in this encounter Plan of Treatment Upcoming Encounters Date Type Department Care Team (Late st Contact Info) Description 07/15/2024 9:00 AM EST Hospital Encounter [facility] Interventional Radiology [address] [place] [phone] [facility]erve Carrillo MD [address] [facility] [address] [facility] [place] [phone] documented as of this encounter Procedures Procedure Name Priority Date/Time Associated Diagnosis Comments ECHOCARDIOGRAM TRANSESOPHAGEAL Routine 04/26/2022 4:33 PM EDT Mitral valve vegetation SOCRATES Routine 04/26/2022 12:55 PM EDT documented in this encounter Results * Echo Transesophageal (SOCRATES) (04/26/2022 4:33 PM EDT) 04/26/2022 2:08 PM EDT Narrative RADNET - 04/26/2022 5:30 PM EDT ?* [facility]* ?[address] ? [place] [address] ? [phone] Transesophageal Echocardiography Patient: ?Aiden Stauffer MR #: ? [id number] Account: Study Date: 04/26/2022 Gender: ? M Age: ?47 : ?1975 Room: ? [facility] REFERRING ?Humza Riley FELLOW ? Fortino Osborn MD FELLOW ? Mukul Schuler MD PERFORMING ?? Zane Coulter MD READING ?Fortino Osborn MD DIRECTOR OF RESOURCE DEVELOPMENT ??Ashish Sheldon ORDERING ? Humza Riley REFERRING ?Humza Riley ATTENDING ?Humza Riley Procedure:ECHO SOCRATES (TRANSESOPHAGEAL) ?Order: Indications: [...] multiplane transesophageal probe was inserted by the hogshead salvage under direct supervision of the attending rescue instructor. Image quality was good. The transesophageal probe [...] There is no evidence of a vegetation. ??Trivial regurgitation. - Mitral valve: There is no evidence of a vegetation. - Left atrium: The atrium is dilated. There is no evidence of a thrombus in the atrial cavity or ??appendage. Low emptying velocities. - Right ventricle: Systolic [...] vegetation. There is a 5 mm fixed ??calcification on the anteroseptal portion of the annulus. Doppler: - Trivial regurgitation. Left atrium: - The atrium is dilated. There is no evidence of a thrombus in the atrial cavity or appendage. Low ??emptying velocities. Right ventricle: - The cavity size [...] a thrombus in the atrial cavity or ??appendage. I personally reviewed the images and agree with the interpretation of the resident. ?Reviewed and confirmed by Zane Coulter MD [id number] Procedure Note Zane Coulter MD - 04/26/2022 * [facility]* [address] [place] [address] Transesophageal Echocardiography Patient: Aiden Stauffer MR #: [id number] Account: Study Date: 04/26/2022 Gender: M Age: 47 : 1975 Room: [facility] Humza Cardenas FELLOW Fortino Osborn MD FELLOW Mukul Schuler MD PERFORMING MD FÁTIMA Renner MD DIRECTOR OF RESOURCE DEVELOPMENT Ashish Sheldon ORDERING Humza Riley REFERRING Humza Riley ATTENDING Humza Riley Procedure:ECHO SOCRATES (TRANSESOPHAGEAL) Order: Indications: Mitral valve vegetatioin (I33.0). Study data: Height: 69in. 175.3cm. Weight: 290lb. 131.8kg. Comparison was made to the study of 03/17/2022. Study status: Routine. Consent: The risks, benefits, and alternatives to the procedure were explained to the patient and informed consent was obtained. Procedure: Initial setup. The patient was brought to the laboratory in the fasting state. Intravenous access was obtained. Surface ECG leads and pulse oximetric signals were monitored. Sedation. Sedation was administered by anesthesiology staff. Transesophageal echocardiography. Topical anesthesia was obtained using viscous lidocaine. An adult multiplane transesophageal probe was inserted by the hogshead salvage under direct supervision of the attending rescue instructor. Image quality was good. The transesophageal probe was removed. Study completion: All IVs inserted during the procedure were removed. The patient tolerated the procedure well. There were no complications. Diagnostic transesophageal echocardiography. 2D, complete spectral Doppler, and color Doppler. Birthdate: Patient birthdate: 1975. Age: Patient is 47yr old. Sex: gender: male. Body mass index: BMI: 42.9kg/m^2. Body surface area: BSA: 2.6m^2. Patient status: Outpatient. Study date: Study date: 04/26/2022. Study time: 02:08 PM. Location: Lab. Study Conclusions - Left ventricle: Systolic function was mildly reduced. - Aortic valve: Left coronary cusp mobility was restricted. There is noevidence of a vegetation. Trivial regurgitation. - Mitral valve: There is no evidence of a vegetation. - Left atrium: The atrium is dilated. There is no evidence of a thrombusin the atrial cavity or appendage. Low emptying velocities. - Right ventricle: Systolic function was normal. - Right atrium: There is no evidence of a thrombus in the atrial cavity orappendage. - Tricuspid valve: There is no evidence of a vegetation. Moderateregurgitation. - Pulmonic valve: There is no evidence [...] coronary cusp mobility was restricted. There is noevidence of a vegetation. Doppler: - Trivial regurgitation. Mitral valve: - Structurally normal valve. There is no evidence of a vegetation. Thereis a 5 mm fixed calcification on the anteroseptal portion of the annulus. Doppler: - Trivial regurgitation. Left atrium: - The atrium is dilated. There is no evidence of a thrombus in the atrialcavity or appendage. Low emptying velocities. Right ventricle: - The cavity size is normal. Wall thickness is normal. Systolic functionwas normal. Pulmonic valve: - The valve appears to be grossly normal. There is no evidence of avegetation. Tricuspid valve: - Structurally normal valve. There is no evidence of a vegetation. Doppler: - Moderate regurgitation. Right atrium: - The atrium is normal in size. There is no evidence of a thrombus in theatrial cavity or appendage. I personally reviewed the images and agree with the interpretation of the resident. 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
--- OUTSIDE RECORDS SUMMARY | 2024-07-12 12:29 | XMS_ITS | Encounter Summary ---
Author Organization [facility] Address [address] [place] [address] Care Team Providers Care Primary Operator Name Role Phone Maile Valles RN Unavailable Unavail able Jack Ordoñez MD Unavailable [phone] Estephania Sharif PharmD Unavailable Christine Edgar Tolentino MD Primary Care Provider [phone] Source Comments This information has been disclosed [...] release of HIV test results or diagnoses. [id number] Reason for Visit * Reason Comments Results Encounter Details Date Type Department Care Team (Late st Contact Info) Description 04/08/2022 Telephone [facility] Liver Transplant at [address] [place] [phone] Lyndsey Lozano, JANA Results Social History Tobacco Use Types [...] encounter Miscellaneous Notes * Telephone Encounter - Lyndsey Lozano RN - 04/08/2022 3:10 PM EDT Lab results from 04/07/22 reviewed and are normal or without clinically significant abnormalities inthe setting of HD. Immunosuppression therapeutic per [facility] liver transplant guidelines or custom goal as documented in prior clinic visits. Will continue to monitor as per previously determined lab intervals. documented in this encounter Plan of Treatment Upcoming Encounters Date Type Department Care Team (Late st Contact Info) Description 07/15/2024 9:00 AM EST Hospital Encounter [facility] Interventional Radiology [address] [place] [address] Herve Carrillo MD [address] [facility] [address] [place] [address] documented as of this encounter Visit Diagnoses Not on filedocumented in this encounter Additional Health Concerns Assessment Noted Time PHQ-9 Depression Total Score: 0 12/06/19 18 3:00 PM EDT documented as of this encounter Care Teams Primary Operator Relationship Specialty Start Date End Date Edgar Fournier MD [address] [place] [address] Dr Tos[address] Morelos JASON Albright [phone] PCP - General 12/22/21 Maile Valles, RN Txp Post Coordinator Transplant Hepatology 11/07/17 Jack Ordoñez MD [facility] [place] [address] Consulting Physician Transplant Hepatology 01/05/18 Estephania Sharif, PharmD Pharmacist Pharmacist 11/11/19 documented as of this encounter
--- OUTSIDE RECORDS SUMMARY | 2024-07-12 12:29 | XMS_ITS | Encounter Summary ---
Author Organization [facility] Address [address] [place] [address] Care Team Providers Care Component Assembler Name Role Phone Maile Valles RN Unavailable Unavail able Jack Ordoñez MD Unavailable [phone] Estephania Sharif PharmD Unavailable Christine Edgar Tolentino MD Primary Care Provider [phone] Source Comments This information has been disclosed [...] release of HIV test results or diagnoses. [id number] Health Encounter Details Date Type Department Care Team (Late st Contact Info) Description 04/26/2022 2:38 PM EDT Anesthesia Event [facility] Electrophysiology Lab [address] [place] [phone] Murtaza Roman MD [address] [phone] Sylvain Ramos CRNA [address] [phone] Anesthesia Record Procedure Summary Procedure Name Responsible Anesthesiologist Anesthesia Start Time Anesthesia Stop Time SOCRATES Murtaza Roman MD 04/26/22 1438 04/26/22 15 19 Events Date Time Event Comment 04/26/2022 1415 1438 An Start 1438 An Start Data 1445 Quick Note Cardiology cons enting pt and numbing airway 1452 Time Out 1453 An Induction 1455 SOCRATES Placement 1503 SOCRATES Removal 1504 Quick Note SOCRATES probe remov ed and patient easily mask ventilated back to 100% SpO2 1506 An Emergence 1510 an stop data 1519 An Stop Meds Name Total lidocaine (PF) 20 mg/mL (2%) injection - Intravenous 100 mg propofol (DIPRIVAN) 10 mg/ml IV injectio n (BOLUS) 30 mg propofol (DIPRIVAN) 10 mg/ml infusion - 100mL VIAL SIZE 102.8 mg midazolam (VERSED) injection 1 mg/ml 2 m g lactated ringers infusion 100 mL * Agents Name N2O Auxiliary O2 O2 N2O Air * Blood No blood administrations on file. Lines, Drains, and Airways Type Details Placement Removal Peripheral IV 04/26/22; 1311; 20 G ; Right; Forearm; Alcohol; Tolerated well 04/26/22 1311 by Deb Lopez RN 04/26/22 1628 by Mraely Franklin RN Anesthesia Airway Device 04/26/22; 1439; Nasal Cannula Salter; I.V.; 1; ENROLLMENT CONSULTANT; Capnograph; 05/18/22; 1642 04/26/22 1439 by Sylvain Ramos CRNA 05/18/22 1642 by Wilmer Fragoso CRNA documented in this encounter Social History Tobacco [...] as of this encounter Progress Notes * Murtaza Roman MD - 04/26/2022 3:52 PM EDT Anesthesia Post Note Patient: Aiden Stauffer Jr. Procedure(s) Performed: Procedure(s): SOCRATES Anesthesia type: MAC Patient location: CVR Airway: Patent Post pain: Adequate analgesia Nausea / Vomiting: Absent Post-operative Hydration Status: Adequate Post assessment: no apparent anesthetic complications, tolerated procedure well and no evidence of recall Last Vitals: Vitals: 04/26/22 1515 04/26/22 1525 04/26/22 1530 BP: 145/78 138/80 141/81 BP Location: Right arm Right arm Right arm Patient Position: Lying Lying Lying Pulse: 70 70 69 Resp: 14 14 14 SpO2: 98% 98% 97% Post vital signs: stable Level of consciousness: awake, alert and oriented Complications: There were no known complications for this encounter. documented in this encounter H&P Notes * Humble Alcantaar MD - 04/26/2022 2:00 PM EDT [facility] DEPARTMENT OF ANESTHESIOLOGY PRE-PROCEDURAL EVALUATION Aiden Stauffer Jr. is a 47 y.o. year old male presenting for: Procedure(s): SOCRATES Surgeon: Thania Carvajal MD Chief Complaint Review of Systems Anesthesia [...] (c/o mitral valve vegitation) related to. (-) past DE, CAD. ROS comment: Echo 03/17/22 - Left ventricle: The cavity [...] and is dilated with moderately depressed function. [facility] 04/25/22 IMPRESSIONS: ?? 1. Normal coronary arteries. 2. Non-ischemic cardiomyopathy. 3. Elevated left sided filling pressures. 4. Uncontrolled hypertension. ?? RECOMMENDATIONS: Further care of volume control and valvular cardiomyopathy per primary inpatient team. 03/17/22 [facility] CI 4.41L/(min-m^2) RA pressure a/v (m) !25/25 (25) RV pressure s/d, ed !60/15, 15 PA wedge a/v (m) !30/30 (30) MPA pressure s/d (m) !60/23 (40) Aortic pressure s/d (m) !185/91 (122) IMPRESSIONS: ?? 1. Markedly elevated biventricular pressures. 2. Severe pulmonary hypertension. 3. Preserved cardiac index and output. Neuro/Muscoloskeletal/Psych: (+) back problem (Doing well s/p back surgery). (-) seizures, CVA. Pulmonary: (+) shortness of breath. Sleep apnea on CPAP. 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 GERD is well controlled. Chronic renal disease (On dialysis MWF. last dialyzed monday), ESRD, hemodialysis. Comments: Multiple prior EGD's Endo/Other: (+) anemia. Diabetes, well controlled, type 2. (-) no thrombocytopenia, no bleeding disorder, no clotting disorder. Past Medical History Past Medical History: Diagnosis [...] ??? ABDOMINAL SURGERY ??? BACK SURGERY 04/2020 [facility] ??? COLONOSCOPY N/A 03/23/2022 Procedure: COLONOSCOPY [...] Meds: Prior to Admission medications as of 04/26/22 1253 Medication Sig Taking? ALPRAZolam (XANAX) 0.5 MG [...] mg total) by mouth every 7 days. epoetin giancarlo-epbx (RETACRIT) 20,000 unit/mL Soln Intravenous 0.25 mLs (5,000 Units total) every Monday, Monday, and Monday for 30 days. Indications: Anemia in Chronic Kidney Disease fenofibrate micronized (LOFIBRA) 134 MG capsule Take [...] scale 3 times daily with meals isosorbide mononitrate (IMDUR) 30 MG 24 hr tablet Take 3 tablets (90 mg total) by mouth daily. lidocaine (LIDODERM) 5 % Place 1 patch [...] Signs Wt Readings from Last 3 Encounters: 04/07/22 (!) 290 lb 9.6 oz (131.8 kg) 03/25/22 (!) 295 lb 3.1 oz (133.9 kg) 12/22/21 (!) 299 lb 1.6 oz (135.7 kg) Ht Readings from Last 3 Encounters: 04/07/22 5' 9 (1.753 m) 03/23/22 5' 9 (1.753 m) 12/22/21 5' 9 (1.753 m) Temp Readings from Last 3 Encounters: 04/25/22 97.7 ??F (36.5 ??C) (Oral) 04/07/22 97.2 ??F (36.2 ??C) (Temporal) 03/25/22 97.7 ??F (36.5 ??C) (Oral) BP Readings from Last 3 Encounters: 04/26/22 (!) 155/98 04/25/22 185/87 04/07/22 118/72 Pulse Readings from Last 3 Encounters: 04/26/22 78 04/25/22 80 04/07/22 74 @LASTSAO2(3)@ Physical Exam Airway: Mallampati: III Mouth Opening: >2 FB TM distance: > = 3 FB Neck ROM: full Comment: 2018: I.V., Rapid Sequence; Standard; cricoid pressure; Laryngoscope Handle; Mac; 3; Oral; Grade I View; ETT; 8 mm; Cuffed (To seal); 21 cm; Stylet Standard; 1; Resident (+) short neck Dental: - No obvious cracked, loose, chipped, or missing teeth. Pulmonary: Cardiovascular: Rhythm: regular Rate: normal Neuro/Musculoskeletal/Psych: - normal neurological exam. Mental status: alert and oriented to person, place and time. Abdominal: Obese. Current OB Status: Other Findings: Laboratory Data Lab Results Component Value Date WBC 4.1 04/25/2022 HGB 9.3 (L) 04/25/2022 HCT 27.9 (L) 04/25/2022 MCV 97.8 04/25/2022 PLT 228 04/25/2022 No results found for: ABORH Lab Results Component Value Date GLUCOSE 85 04/25/2022 BUN 51 (H) 04/25/2022 CO2 30 04/25/2022 CREATININE 7.80 (H) 04/25/2022 K 4.1 04/25/2022 NA 143 04/25/2022 CL 98 04/25/2022 CALCIUM 9.2 04/25/2022 ALBUMIN 4.5 04/07/2022 ALBUMIN 4.5 04/07/2022 PROT 7.2 04/07/2022 ALKPHOS 85 04/07/2022 ALT 8 04/07/2022 AST 11 (L) 04/07/2022 BILITOT 0.6 04/07/2022 Lab Results Component Value Date INR 1.2 (H) 04/25/2022 No results found for: PREGTESTUR, PREGSERUM, HCG, HCGQUANT Anesthesia Plan ASA 3 Current non-smoker Anesthesia Type: MAC. PONV Risk Factors: current non-smoker, Planned Special Techniques: Planned Special Techniques: SOCRATES. Anesthetic plan and risks discussed with patient. Plan, alternatives, and risks of anesthesia, including , have been explained to and discussed with the patient/legal guardian. By my assessment, the patient/legal guardian understands and agrees. Scenario presented in detail. Questions answered. Blood products not discussed. Plan discussed with attending and ENROLLMENT CONSULTANT. documented in this encounter Plan of Treatment Upcoming Encounters Date Type Department Care Team (Late st Contact Info) Description 07/15/2024 9:00 AM EST Hospital Encounter [facility] Interventional Radiology [address] [place] [phone] Herve Carrillo MD [address] [facility] [address] [facility] [place] [phone] documented as of this encounter Visit Diagnoses * Transfer of Care - Humble Alcantara MD - 04/26/2022 3:20 PM EDT Anesthesia Transfer of Care Note Patient: Aiden Stauffer Jr. Procedure(s) Performed: Procedure(s): SOCRATES Patient location: CVR Anesthesia type: MAC Airway Device on Arrival to PACU/ICU: Nasal Cannula IV Access: Peripheral Monitors Recommended to be Used During PACU/ICU: Standard Monitors Outstanding Issues to Address: None Level of Consciousness: awake and alert Post vital signs: There were no vitals filed for this visit. BP 145/77 HR 72 SpO2 99% Complications: No complications documented. Date 04/25/22 1500 - 04/26/22 0659 04/26/22 0700 - 04/27/22 0659 Shift 0954-4413 9318-6573 24 Hour Total 8268-2400 7214-3454 6804-7821 24 Hour Total INTAKE I.V. 100 100 Volume (mL) (lactated Ringers infusion) 100 100 Shift Total 100 100 OUTPUT Shift Total Weight (kg) documented in this encounter Administered Medications Inactive Administered Medications - up to 3 most recent administrations Medication Order MAR Action Action Date Dose Rate Site lactated Ringers infusion Intravenous, Continuous - One Step Medications Only, Starting on Mon04/26/22 at 1437, Anesthesia Intra-op New Bag 04/26/2022 2:37 PM EDT lidocaine (PF) 2% (20 mg/mL) Soln Intravenous, PRN - One Step Medication Only, Starting on Mon04/26/22 at 1453, Anesthesia Intra-op Given 04/26/2022 2:53 PM EDT 100 mg midazolam (PF) (VERSED) injection Intravenous, PRN - One Step Medication Only, Starting on Mon04/26/22 at 1453, Anesthesia Intra-op Given 04/26/2022 2:53 PM EDT 2 mg propofol (DIPRIVAN) infusion 10 mg/mL Intravenous, Continuous - One Step Medications Only, Starting on Mon04/26/22 at 1453, Anesthesia Intra-op Rate/Dose Change 04/26/2022 3:03 PM EDT 30 mcg/kg/min 23.724 mL/hr Rate/Dose Change 04/26/2022 2:58 PM EDT 50 mcg/kg/min 39.5 4 mL/hr New Bag 04/26/2022 2:53 PM EDT 100 mcg/kg/min 79.08 mL/ hr propofol 10 mg/ml (DIPRIVAN) injection Intravenous, PRN - One Step Medication Only, Starting on Mon04/26/22 at 1453, Anesthesia Intra-op Given 04/26/2022 2:53 PM EDT 30 mg documented in this encounter Additional Health Concerns Assessment Noted Time PHQ-9 Depression Total Score: 0 12/06/19 18 3:00 PM EDT documented as of this encounter Care Teams Component Assembler Relationship Specialty Start Date End Date Edgar Fournier MD [address] [place] [address] [place] [address] PCP - General 12/22/21 Maile Valles, RN Txp Post Coordinator Transplant Hepatology 11/07/17 Jack Ordoñez MD [address] [place] [phone] Consulting Physician Transplant Hepatology 01/05/18 Estephania Sharif, DarrianD Pharmacist Pharmacist 11/11/19 documented as of this encounter
--- OUTSIDE RECORDS SUMMARY | 2024-07-12 12:29 | XMS_ITS | Encounter Summary ---
Author Organization [facility] Address [facility] [place] [address] Care Team Providers Care Countersinker Balance Screw Hole Name Role Phone Maile Valles RN Unavailable Unavail able Jack Ordoñez MD Unavailable [phone] Estephania Sharif PharmD Unavailable Christine Edgar Tolentino MD Primary Care Provider [phone] Source Comments This information has been disclosed [...] release of HIV test results or diagnoses. [id number] Reason for Visit * Auth/Cert Specialty Diagnoses / Procedures Referred By Contac t Referred To Contact Cardiology Diagnoses heart failure/ pt coming from dialysis in the am. Procedures LEFT HEART CATH [facility] CVR [address] [place] [address] Phone: tel: Referral ID Status Reason Start Date Expiration Date Visits Re quested Visits Authorized [id number] 1 1 Encounter Details Date Type Department Care Team (Late st Contact Info) Description 04/25/2022 2:00 PM EDT - 04/25/2022 3:30 PM EDT Surgery [facility] Cardiac Director [employer] [address] [place] [address] Fermín Schulte MD Left Heart Cath with possible PCI Surgery Details Date/Time Status Location OR Service Patient Class Case Class Case Type Trauma Case? 04/25/2022 2:00 PM Posted CARDIAC CATH LABS CATH 01 Cath Hosp OP Surg/Ambula tory Panel 1 Procedure LRB Anes Op Region Wound Class Comments Left Heart Cath with possibl e PCI N/A Moderate Sedation Surgeon Surgeon Role Service [...] Sign Reading Time Taken Comments Blood Pressure 142/81 04/25/2022 12:24 PM EDT Pulse 80 04/25/2022 12:19 PM EDT Temperature 36.5 ??C (97.7 ??F) 04/25/2022 12:19 PM E DT Respiratory Rate 16 04/25/2022 12:19 PM EDT Oxygen Saturation 98% 04/25/2022 12:19 PM EDT Inhaled Oxygen Concentration 98% 04/25/2022 1 2:19 PM EDT Weight - - Height - - Body Mass Index - - documented in this encounter Discharge Instructions * Attachments The following attachments cannot be sent through Care Everywhere. * [facility] Site Care (Yoruba) documented in this encounter Medications at Time [...] of this encounter Progress Notes * Salo Jordan RN - 04/25/2022 7:15 PM EDT Discharge [...] patient to vehicle. SALO JORDAN * Jude Snatana RN - 04/25/2022 12:28 PM EDT Pt admitted to [facility] A. Verified pt name and , arm band in place. Height and weight obtained upon admission. Pt undressed and in gown in preparation of procedure. Person responsible for transportation at discharge: . Pt A&Ox3, SR per tele, Vital signs stable. Pre-procedure checklist completed. Admission assessment completed. H&P up to date. Allergies verified- armband placed. #20 PIV placed by Eli, RN, blood return noted, specimen sent to [...] Smith MD - 04/25/2022 4:22 PM EDT [facility] PRE-SEDATION ASSESSMENT, HISTORY & PHYSICAL Date: 04/25/2022 Aiden Stauffer Jr. is a 47 y.o. year old male Pre-Procedure Diagnosis/Procedure Indication: MV vegetation, pre-op evaluation Planned Procedure: [facility] NPO for solids >8 hours, NPO for liquids >8 hours Past Medical History Past Medical History: Diagnosis Date ??? Acute pancreatitis ??? Anemia ??? Ascites ??? Diabetes mellitus ([facility] Dx) ??? Esophageal varices with bleeding (CMS [...] total) by mouth daily with breakfast. 10/17/17 YesVenanciolorlesley Feng CNP calcium acetate,phosphat bind, (PHOSLO) 667 [...] by mouth daily. 03/26/22 Yes Alex De Guzman, DO magnesium oxide (MAG-OX) 400 mg tablet Take 1 tablet (400 mg total) by mouth 2 times a day. 03/25/22Yes Alex De Guzman, DO methocarbamoL (ROBAXIN) 500 MG tablet Take [...] Advanced Heart Failure Interventional Cardiovascular Disease Pager [phone] documented in this encounter Nursing Notes * Jasmine Smith MD - 04/25/2022 6:24 PM EDT [facility] Department of Cardiovascular Health and Diseases Cardiology Post Sedation Note Patient: Aiden Stauffer JrUbaldo Procedure(s) Performed: [facility] Anesthesia type: Versed and fentanyl Patient location: [...] Advanced Heart Failure Interventional Cardiovascular Disease Pager [phone] documented in this encounter Plan of Treatment Upcoming Encounters Date Type Department Care Team (Late st Contact Info) Description 07/15/2024 9:00 AM EST Hospital Encounter [facility] Interventional Radiology [address] [place] [phone] Herve Carrillo MD [address] [facility] Ed [address] [place] [phone] documented as of this encounter Procedures Procedure Name Priority Date/Time Associated Diagnosis Comments LEFT HEART CATH Routine 04/25/2022 3:56 PM EDT Heart failure, unspecified HF chronicity, unspecified heart failure type ([facility]-HCC) ECG 12-LEAD (MUSE) STAT 04/25/2022 12 :04 [...] Narrative RADNET - 05/10/2022 3:59 PM EDT *[facility]* Cardiac Director [employer] [address] [place], [place] [address] CATHETERIZATION LAB STUDY Patient: ? Eh Aiden ?Age: ?47 ?Study Date: ? 04/25/2022 ? [...] manner. 3. Right radial artery access. A [id number] glidesheath - slender - .021 sheath was advanced into the ?? vessel. 4. Selective left coronary angiography. A [id number] tig 4.0 catheter was introduced. Contrast was ?? injected. Images were obtained using multiple projections. 5. Selective right coronary angiography. A [id number] tig 4.0 catheter was introduced. Contrast was [...] + !LV pressure s/d, ed ?!155/14, 38, dP/oe=2187ji Hg/s! + + + !Aortic pressure s/d (m)!153/70 (113) ? ! + + + ATTESTATION: Dr. Fermín Schulte was present for the entire procedure. Dr. Jasmine Smith was the initial author of this report. Prepared and electronically signed by Fermín Schulte MD [id number] Procedure Note Fermín Schulte MD - 05/10/2022 *[facility]* Cardiac Director [employer] [address] [place], [place] [address] CATHETERIZATION LAB STUDY Patient: Aiden Stauffer Age: [...] manner. 3. Right radial artery access. A [id number] glidesheath - slender - .021sheath was advanced into the vessel. 4. Selective left coronary angiography. A [id number] tig 4.0 catheter wasintroduced. Contrast was injected. Images were obtained using multiple projections. 5. Selective right coronary angiography. A [id number] tig 4.0 catheter wasintroduced. Contrast was injected. [...] + !LV pressure s/d, ed !155/14, 38, dP/tk=7345dc Hg/s! + + + !Aortic pressure s/d (m)!153/70 (113) ! + + + ATTESTATION: Dr. Fermín Schulte was present for the entire procedure. Dr. Jasmine Smith was the initial author of this report. Prepared and electronically signed by Fermín Schulte MD [id number] us Fermín [place] [id number] Final Result RADNET * ECG 12 lead (MUSE) (04/25/2022 12:04 PM EDT) 04/25/2022 12:0 4 PM EDT Narrative MUSE - 04/25/2022 5:24 PM EDT Ventricular Rate: ??80 ??BPM Atrial Rate: ??80 ??BPM P-R Interval: ??208 ??ms QRS Duration: ??106 ??ms QT: ??446 ??ms QTc: ??514 ??ms P Alma: ??62 ??degrees R Alma: ??66 ??degrees T Alma: ??32 ??degrees Diagnosis Line: ??NORMAL SINUS RHYTHM ^ PROLONGED QT ^ ABNORMAL ECG ^ COMPARED TO THE ECG OF 18-MAR-2022 00:43, ^ THERE IS NO SIGNIFICANT CHANGE ^ Confirmed by MD WIN, KALINA ([id number]) on 04/25/2022 5:24:41 PM us Argenis Singh CNP ECG ORDERABLES Final Result MUSE * (ABNORMAL) Protime-INR (04/25/2022 12:03 PM [...] PM EDT 04/25/2022 12:21 PM EDT Narrative [facility] - 04/25/2022 12:34 PM EDT If not done within 14 days or preform day of procedure for any patients with liver issues or on Coumadin us Argenis Singh EXTRACTOR TENDER RAW STOCK LAB BLOOD ORDERABLES Final Re sult Performing Organization Address City/State/[facility] Co de Phone Number [facility] [address] * (ABNORMAL) Basic metabolic panel (04/25/2022 12:03 PM EDT) Sodium 143 133 - 146 mmol/L 04/25/2022 12:53 PM EDT [facility] Potassium 4.1 3.5 - 5.3 mmol/L 04/25/2022 12:53 PM EDT [facility] Chloride 98 98 - 110 mmol/L 04/25/2022 12:53 PM EDT [facility] CO2 30 21 - 33 mmol/L 04/25/2022 12:53 PM EDT [facility] Anion Gap 15 3 - 16 mmol/L 04/25/2022 12:53 PM EDT [facility] BUN 51(H) 7 - 25 mg/dL 04/25/2022 12:53 PM EDT [facility] Creatinine 7.80(H) 0.60 - 1.30 mg/dL 04/25/2022 12:53 PM EDT [facility] Glucose 85 70 - 100 mg/dL 04/25/2022 12:53 PM EDT [facility] Calcium 9.2 8.6 - 10.3 mg/dL 04/25/2022 12:53 PM EDT [facility] Osmolality, Calculated 309(H) 278 - 305 mOsm/kg 04/25/2022 12:53 PM EDT [facility] EGFR 8 04/25/2022 12:53 PM EDT [facility] Comment:As of 2021, the [...] PM EDT 04/25/2022 12:21 PM EDT Narrative [facility] - 04/25/2022 12:53 PM EDT If not done within 14 days or previous BMP results were abnormal us Argenis Singh EXTRACTOR TENDER RAW STOCK LAB BLOOD ORDERABLES Final Re sult [facility] [address] * (ABNORMAL) CBC (04/25/2022 12:03 PM EDT) WBC 4.1 3.8 - 10.8 10E3/uL 04/25/2022 12:34 PM EDT [facility] RBC 2.85(L) 4.20 - 5.80 10E6/uL 04/25/2022 12:34 PM EDT [facility] Hemoglobin 9.3(L) 13.2 - 17.1 g/dL 04/25/2022 12:34 PM EDT [facility] Hematocrit 27.9(L) 38.5 - 50.0 % 04/25/2022 12:34 PM EDT [facility] MCV 97.8 80.0 - 100.0 fL 04/25/2022 12:34 PM EDT [facility] MCH 32.6 27.0 - 33.0 pg 04/25/2022 12:34 PM EDT [facility] MCHC 33.3 32.0 - 36.0 g/dL 04/25/2022 12:34 PM EDT [facility] RDW 13.6 11.0 - 15.0 % 04/25/2022 12:34 PM EDT [facility] Platelets 228 140 - 400 10E3/uL 04/25/2022 12:34 PM EDT [facility] MPV 6.9(L) 7.5 - 11.5 fL 04/25/2022 12:34 PM EDT [facility] Whole Blood 04/25/2022 12:0 3 PM EDT 04/25/2022 12:21 PM EDT Narrative [facility] - 04/25/2022 12:34 PM EDT If not done within 14 days or if previous CBC results were abnormal us Argenis Singh EXTRACTOR TENDER RAW STOCK LAB BLOOD ORDERABLES Final Re sult Performing Organization Address City/State/[facility] Co de Phone Number [facility] [address] * CARDIAC CATH DOCUMENTS SCAN (04/25/2022 [...] Given 04/25/2022 3:21 PM EDT 12.5 mcg fentaNYL (SUBLIMAZE) injection Intra-op PRN, Starting on Mon04/25/22 at 1538, Intra-procedure(Invasive Cardiology) Given 04/25/2022 3:38 PM EDT 12.5 mcg heparin (porcine) injection Intra-op PRN, Starting on Mon04/25/22 at 1545, Intra-procedure(Invasive Cardiology) Given 04/25/2022 3:45 PM EDT 5,000 Units hydrALAZINE (APRESOLINE) 20 mg/mL injection Intra-op PRN, Starting on Mon04/25/22 at 1533, Intra-procedure(Invasive Cardiology) Given 04/25/2022 3:33 PM EDT 10 mg midazolam (PF) (VERSED) injection 0.5 mg 0.5 mg, Intravenous, Once, On Mon04/25/22 at 1530, For 1 dose Given 04/25/2022 3:21 PM EDT 0.5 mg midazolam (PF) (VERSED) injection Intra-op PRN, Starting on Mon04/25/22 at 1538, Intra-procedure(Invasive Cardiology) Given 04/25/2022 3:38 PM EDT 0.5 mg OMNIPAQUE (iohexol) 350 mg iodine/mL Intra-op PRN, Starting on Mon04/25/22 at 1548, Intra-procedure(Invasive Cardiology) Given 04/25/2022 3:48 PM EDT 55 mLs sodium chloride 0.9 % infusion 1,000 mL 1,000 mL, Intravenous, Continuous, Starting on Mon04/25/22 at 1200, Pre-Procedure(Invasive Cardiology), at 50 mL/hr New Bag 04/25/2022 2:20 PM EDT 1,000 mLs 50 mL/hr sodium chloride 0.9 % infusion 999 mL/hr, Intravenous, Use as directed PRN, vasovagal reaction, Starting on Mon04/25/22 at 1629, For 12 hours, Post-Procedure(Invasive Cardiology) verapamiL (ISOPTIN) injection Intra-op PRN, Starting on Mon04/25/22 at 1540, Intra-procedure(Invasive Cardiology) Given 04/25/2022 3:40 PM EDT 2.5 mg Right Arm documented in this encounter Active and Recently [...] documented as of this encounter Care Teams Countersinker Balance Screw Hole Relationship Specialty Start Date End Date Edgar Fournier MD [address] [place] [address] [place] [address] PCP - General 12/22/21 Maile Valles, JANA Txp Post Coordinator Transplant Hepatology 11/07/17 Jack Ordoñez MD [address] [place] [phone] Consulting Physician Transplant Hepatology 01/05/18 Estephania Sharif, DarrianD Pharmacist Pharmacist 3/30/20 documented as of this encounter
--- OUTSIDE RECORDS SUMMARY | 2024-07-12 12:29 | XMS_ITS | Encounter Summary ---
Author Organization [facility] Address [facility] [place] [address] Care Team Providers Care Test Grader Name Role Phone Maile Valles RN Unavailable Unavail able Jack Ordoñez MD Unavailable [phone] Estephania Sharif PharmD Unavailable Christine Edgar Tolentino MD Primary Care Provider [phone] Source Comments This information has been disclosed [...] release of HIV test results or diagnoses. [id number] Encounter Details Date Type Department Care Team (Latest Contact Info) Description 04/15/2022 Travel Social History Tobacco Use Types Packs/Day [...] Description 07/15/2024 9:00 AM EST Hospital Encounter [facility] Interventional Radiology [address] [place] [phone] Herve Carrillo MD [address] [facility] [address] [facility] [place] [address] documented as of this encounter Visit Diagnoses Not on filedocumented in this encounter Additional Health Concerns Assessment Noted Time PHQ-9 Depression Total Score: 0 12/06/19 18 3:00 PM EDT documented as of this encounter Care Teams Test Grader Relationship Specialty Start Date End Date Edgar Fournier MD [address] [place] [phone] PCP - General 12/22/21 Maile Valles, RN Txp Post Coordinator Transplant Hepatology 11/07/17 Jack Ordoñez MD [address] [place] [phone] Consulting Physician Transplant Hepatology 01/05/18 Estephania Sharif, DarrianD Pharmacist Pharmacist 11/11/19 documented as of this encounter
--- OUTSIDE RECORDS SUMMARY | 2024-07-12 12:29 | XMS_ITS | Encounter Summary ---
Author Organization [facility] Address [address] [place] [address] Care Team Providers Care Wash Driller Name Role Phone Maile Valles RN Unavailable Unavail able Jack Ordoñez MD Unavailable [phone] Estephania Sharif PharmD Unavailable Christine Edgar Tolentino MD Primary Care Provider [phone] Source Comments This information has been disclosed [...] release of HIV test results or diagnoses. [id number] Reason for Referral * Diagnostic Imaging (Routine) - Denied Specialty Diagnoses / Procedures Referred By Contac t Referred To Contact Diagnoses Heart failure, unspecified HF chronicity, unspecified heart failure type ([facility]-H[facility]) Procedures Cath Case Request: Left Heart Cath with possible PCI MT CATH PLMT L HRT & ARTS W/NJX & ANGIO IMG S&I MT PRQ TRLUML CORONARY STENT W/ANGIO ONE ART/BRNCH Humza Riley, Fermín Melendez MD Referral ID Status Reason Start Date Expiration Date Visits Re quested Visits Authorized [id number] Denied 04/15/2022 10/12/2022 1 0 Encounter Details Date Type Department Care Team (Late st Contact Info) Description 04/15/2022 Telephone [facility] Advanced Heart Failure at [facility] Office [address] [facility] [address] [place] [address] Humza Riley CNP Social History [...] Telephone Encounter - Kimberly Camp RN - 04/15/2022 2:53 PM EDT Spoke to pt and reviewed following instructions/ copy to [employer]. CATH INSTRUCTIONS You have been scheduled for a Left Heart Catheterization. Please check in at 1200 p.m on April 25, 2022 at the Diagnostic Center on the second floor of the [address] [address]. Please call [phone] for late arrival. Below you will find instructions for your procedure: Hold your injectable insulin the morning of the procedure. 1. Do not eat or drink anything 8 hours prior to your scheduled procedure. 2. You can take your medications with sips of water. Do not take your water pill on the day of yourprocedure. 3. You will require an IV. 4. [...] feel free to call us at . Cardiac Cath: Angiography is a procedure used to look a the blood vessels(arteries) which carry the blood to different parts of your body. In this procedure a dye is injected through a catheter ( a long hollow tube about the size of a piece of cooked spaghetti) into an artery and x-rays are taken. The x-rays will show if there is blockage or problem in a blood vessel. Procedure: You may be given a medication to help you relax before and during the procedure through an IV in your arm or hand. A local anesthetic is used to make the insertion area numb prior to inserting the catheter. You will be prepared for the procedure by washing the area where the catheter will be inserted. This is usually done in the wrist however it can be done in groin. After the procedure After the procedure you will be monitored for 2-4 hours. The access site will be watched and you will be checked frequently. Additional blood test, x-rays and an EKG may be performed. Someone will need to drive home from the hospital. Your procedure will be cancelled if you do not have a ride. A taxi is not suitable Bring an overnight bag with you in case you are admitted * Telephone Encounter - Kimberly Camp RN - 04/15/2022 2:14 PM EDT ----- Message from Humza Riley CNP sent at 04/15/2022 1:58 PM EDT ----- Regarding: [facility] Can we get this pt scheduled for a left heart cath. He needs to have it prior to his [facility] on 04/26. He also has dialysis MWF I believe. documented in this encounter Plan of Treatment Upcoming Encounters Date Type Department Care Team (Late st Contact Info) Description 07/15/2024 9:00 AM EST Hospital Encounter [facility] Interventional Radiology [address] [place] [phone] Herve Carrillo MD [address] [facility] [address] [place] [address] documented as of this encounter Visit Diagnoses Diagnosis Heart failure, unspecified HF chronicity, unspecified heart failure type (CMS-HCC)- Primary documented in this encounter Additional Health Concerns Assessment Noted Time PHQ-9 Depression Total Score: 0 12/06/19 18 3:00 PM EDT documented as of this encounter Care Teams Wash Driller Relationship Specialty Start Date End Date Edgar Fournier MD [address] [place] [address] [place] [phone] PCP - General 12/22/21 Maile Valles, RN Txp Post Coordinator Transplant Hepatology 11/07/17 Jack Ordoñ[place] [address] [place] [phone] Consulting Physician Transplant Hepatology 01/05/18 Estephania Sharif, DarrianD Pharmacist Pharmacist 11/11/19 documented as of this encounter
--- OUTSIDE RECORDS SUMMARY | 2024-07-12 12:29 | XMS_ITS | Encounter Summary ---
Author Organization [facility] Address [address] [place] [address] Care Team Providers Care Ultrasonic Tester Name Role Phone Maile Valles RN Unavailable Unavail able Jack Ordoñez MD Unavailable [phone] Estephania Sharif PharmD Unavailable Christine Edgar Tolentino MD Primary Care Provider [phone] Source Comments This information has been disclosed [...] release of HIV test results or diagnoses. [id number] Reason for Visit * Reason Comments Chest Pain * Auth/Cert Specialty Diagnoses / Procedures Referred By Contac t Referred To Contact Transplant Diagnoses Anemia, unspecified type Chest pain, unspecified type chest pain/elevated traponin [address] [place] [address] Phone: tel: Referral ID Status Reason Start Date Expiration Date Visits Re quested Visits Authorized [id number] 1 1 Encounter Details Date Type Department Care Team (Late st Contact Info) Description 05/01/2022 3:10 PM EDT - 05/03/2022 11:54 AM EDT Emergency [facility] [address] [address] [place] [address] Daren Lawson MD [place], Latoya Labresska, MD [facility] [place] [address] Jorge Goldberg MD [address] [facility] [place] [address] Chest pain, unspecified type (Primary Dx); Anemia, unspecified type; ESRD (end stage renal disease) ([facility]) Discharge Disposition: Home or Self Care [...] Sign Reading Time Taken Comments Blood Pressure 180/85 05/03/2022 8:36 AM EDT Pulse 79 05/03/2022 8:36 AM EDT Temperature 36.3 ??C (97.4 ??F) 05/03/2022 8:36 AM ED T Respiratory Rate 16 05/03/2022 8:36 AM EDT Oxygen Saturation 93% 05/03/2022 8:36 AM EDT Inhaled Oxygen Concentration 93% 05/03/2022 8 :36 AM EDT Weight 133.8 kg (295 lb) 05/02/2022 12:44 AM EDT Height 175.3 cm (5' 9 ) 05/02/2022 12:44 AM EDT Body Mass Index 43.56 05/02/2022 12:44 AM EDT documented in this encounter Discharge Summaries * Skylar Hickman RN - 05/03/2022 11:54 AM EDT [facility] Nurse Practitioner Hospitalist/Petal Shaper Hand Discharge Summary Patient name: Aiden Stauffer Jr. Patient : 1975 Age: 47 y.o. Gender: male Patient emergency contact: Extended Emergency Contact Information Primary Emergency Contact: Kym Stauffer [address]: [address] [place] [address] Mobile Relation: Spouse Secondary Emergency Contact: Kimberly Stauffer [facility] Relation: Mother Attending provider: No att. providers found Primary care physician: Edgar Fournier MD The MD has indicated that the patient is ready for discharge. Patient's discharge needs were assessed and no additional needs were identified. Patient likely to discharge back to prior living arrangements with no additional services. The patient will be transported by family at time of d/c. Transfer Mode/Level of Care: Family The plan has been reviewed: Patient/Family Informed of Discharge Plan: Yes Plan Reviewed With Patient, Family, or Significant Other: Yes Patient and or family are aware and in agreement with the discharge plan: Yes Plan reviewed with MD and other members of the health care team: Yes Care Plan Completed: Yes This plan has been reviewed with the multi-disciplinary team. Treatment Preferences Post-Discharge Goals Post Acute Care Provider Information: Community Services at Discharge Community Services at Home post discharge: Dialysis Dialysis Needs: Hemodialysis Name of Dialysis Company: [facility] Phone #: [phone] HD days of week: MWF HD time of day: 6:30am No further CM/SW needs. Skylar Hickman RN Case Manager [phone] * Minna Leung MD - 05/02/2022 2:26 PM EDT [facility] Inpatient Discharge Summary Patient: Aiden Stauffer Jr. Age: 47 y.o. CSN: [id number] Date of Admission: 05/01/2022 Date of Discharge: 05/03/2022 Attending Physician: Jorge Goldberg Primary Care Physician: Edgar Fournier MD Diagnoses Present on Admission Past Medical History: Diagnosis Date ??? Acute [...] osteomyelitis (CMS Dx) ??? Vitamin D deficiency Discharge Diagnoses There are no hospital problems to display for this patient. Operations/Procedures Performed (include dates) Surgeries: Lines and tubes: Patient Lines/Drains/Airways Status Active Line / PIV Line Name Placement date Placement time Site Days Hemodialysis Access Arteriovenous Fistula Left Forearm -- -- Forearm -- Hemodialysis Access Left Upper Arm -- -- Upper Arm -- Other Procedures / Pertinent Imaging: X-ray Portable Chest Final Result IMPRESSION: No acute cardiopulmonary abnormality. Approved by Jack Tomas MD on 05/03/2022 9:55 AM EDT I have personally reviewed the images and I agree with this report. Report Verified by: Jack Patel MD at 05/03/2022 9:57 AM EDT X-ray Portable Chest Final Result IMPRESSION: Stable appearance of the chest with no acute cardiopulmonary abnormality. Report Verified by: Chicho Gamez MD at 05/01/2022 4:54 PM EDT Consulting Services (include reason) No consults Allergies Allergies Allergen Reactions ??? Tacrolimus Other (See Comments) Anxious feeling and muscle jerking. TOLERATED ENVARSUS BETTER THAN PROGRAF. ??? Codeine Sulfate Hyper ??? Codeine Other (See Comments) Becomes hyper Discharge Medications Discharge Medications Medication List TAKE these medications, which you were ALREADY TAKING Quantity/Refills ALPRAZolam 0.5 MG tablet Commonly known as: XANAX Take 0.5 mg by mouth if needed for Sleep. Refills: 0 aspirin 81 MG chewable tablet Chew 1 tablet (81 mg total) by mouth daily with breakfast. Quantity: 30 tablet Refills: 5 calcium acetate(phosphat bind) 667 mg capsule Commonly known as: PHOSLO Take 667 mg by mouth 3 times a day with meals. Refills: 0 carBAMazepine 200 mg tablet Commonly known as: TEGRETOL Take 200 mg by mouth 2 times a day. Refills: 0 carvediloL 12.5 MG tablet Commonly known as: COREG Take 1 tablet (12.5 mg total) by mouth 2 times a day with meals. Quantity: 60 tablet Refills: 0 cholecalciferol (vitamin D3) 1,250 mcg (50,000 unit) capsule Take 1 capsule by mouth three times weekly on Monday, , and Monday. Refills: 0 cinacalcet 30 MG tablet Commonly known as: SENSIPAR Take 1 tablet (30 mg total) by mouth daily with breakfast. Quantity: 30 tablet Refills: 0 cycloSPORINE modified 25 MG capsule Generic drug: cycloSPORINE modified Take 4 capsules (100 mg total) by mouth 2 times a day. Quantity: 720 capsule Refills: 1 doxazosin 8 MG tablet Commonly known as: CARDURA Take 8 mg by mouth at bedtime. Refills: 0 entecavir 0.5 MG tablet Commonly known as: BARACLUDE Take 1 tablet (0.5 mg total) by mouth every 7 days. Quantity: 4 tablet Refills: 5 fenofibrate micronized 134 MG capsule Commonly known as: LOFIBRA Take 134 mg by mouth every morning before breakfast. Refills: 0 ferrous sulfate 325 (65 FE) MG tablet Take 1 tablet (325 mg total) by mouth daily with breakfast. Quantity: 30 tablet Refills: 0 folic acid 1 MG tablet Commonly known as: FOLVITE Take 1 tablet (1 mg total) by mouth daily. Quantity: 30 tablet Refills: 0 gabapentin 100 MG capsule Commonly known as: NEURONTIN Take 1 capsule (100 mg total) by mouth 3 times a day. Quantity: 90 capsule Refills: 0 hydrALAZINE 100 MG tablet Commonly known as: APRESOLINE Take 1 tablet (100 mg total) by mouth every 8 hours. Quantity: 120 tablet Refills: 0 insulin aspart U-100 100 unit/mL injection Commonly known as: NovoLOG Administers per sliding scale 3 times daily with meals Refills: 0 isosorbide dinitrate 10 MG tablet Commonly known as: ISORDIL Refills: 0 lidocaine 5 % Commonly known as: LIDODERM Place 1 patch onto the skin daily as needed. Refills: 0 lisinopriL 40 MG tablet Commonly known as: PRINIVIL Take 1 tablet (40 mg total) by mouth daily. Quantity: 30 tablet Refills: 0 magnesium oxide 400 mg tablet Commonly known as: MAG-OX Take 1 tablet (400 mg total) by mouth 2 times a day. Quantity: 60 tablet Refills: 0 methocarbamoL 500 MG tablet Commonly known as: ROBAXIN Take 500 mg by mouth 4 times daily before meals and at bedtime. Refills: 0 metoprolol succinate 100 MG 24 hr tablet Commonly known as: TOPROL-XL Take 100 mg by mouth at bedtime. Refills: 0 montelukast 10 mg tablet Commonly known as: SINGULAIR Take 10 mg by mouth daily. Refills: 0 mycophenolate 250 mg capsule Commonly known as: CELLCEPT Take 1 capsule (250 mg total) by mouth 2 times a day. Quantity: 180 capsule Refills: 1 NIFEdipine 90 MG (OSM) 24 hr tablet Commonly known as: PROCARDIA-XL Take 90 mg by mouth 2 times a day. Refills: 0 ondansetron 4 MG disintegrating tablet Commonly known as: ZOFRAN-ODT Take 4 mg by mouth every 8 hours as needed. Refills: 0 pantoprazole 40 MG tablet Commonly known as: PROTONIX Take 1 tablet (40 mg total) by mouth 2 times a day. Quantity: 30 tablet Refills: 0 polyethylene glycol 17 gram packet Commonly known as: MIRALAX Take 17 g by mouth daily as needed (mild constipation (no BM for 24 hrs)). Quantity: 14 packet Refills: 0 proMETHazine 12.5 MG tablet Commonly known as: PHENERGAN Take 12.5 mg by mouth every 6 hours as needed. Refills: 0 sevelamer carbonate 800 mg tablet Commonly known as: RENVELA Take 1,600 mg by mouth 3 times a day with meals. Refills: 0 testosterone cypionate 200 mg/mL injection Commonly known as: DEPOTESTOTERONE CYPIONATE Inject into the muscle. Refills: 0 Vascepa 1 gram Cap Generic drug: icosapent ethyL TAKE 2 Capsule by mouth twice daily Refills: 0 STOP taking these medications isosorbide mononitrate 30 MG 24 hr tablet Commonly known as: IMDUR Discharge Exam Physical Exam Constitutional: Appearance: He is obese. HENT: Head: Normocephalic and atraumatic. Nose: Nose normal. Mouth/Throat: Mouth: Mucous membranes are moist. Pharynx: Oropharynx is clear. Eyes: Extraocular Movements: Extraocular movements intact. Conjunctiva/sclera: Conjunctivae normal. Pupils: Pupils are equal, round, and reactive to light. Cardiovascular: Rate and Rhythm: Normal rate and regular rhythm. Pulses: Normal pulses. Heart sounds: Normal heart sounds. Comments: Tenderness to palpation across chest wall Pulmonary: Effort: Pulmonary effort is normal. Breath sounds: Normal breath sounds. Comments: On 3 L at home Abdominal: General: Abdomen is flat. Bowel sounds are normal. Palpations: Abdomen is soft. Comments: reducible epigastric hernia, old surgical scar, mild tenderness to palpation in LLQ and RLQ and in the area of the hernia, no rebound or guarding Musculoskeletal: General: Normal range of motion. Cervical back: Normal range of motion and neck supple. Skin: General: Skin is warm. Capillary Refill: Capillary refill takes less than 2 seconds. Neurological: General: No focal deficit present. Mental Status: He is alert and oriented to person, place, and time. Psychiatric: Mood and Affect: Mood normal. Reason for Admission Aiden Stauffer Jr. is a 47 y.o. 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 Hospital Course There are no hospital problems to display for this patient. #Chronic Anemia #Abdominal pain Admitted to from 03/16-03/25 for GI bleed after coming in with BRBPR. He had EGD and colonoscopy atthat time which showed non-bleeding internal hemorrhoids. He was placed on PPI twice daily. No recurrent bleeding, plan was for repeat EGD in 8 weeks, currently scheduled for 05/18.??EGD 03/23: small hiatal hernia, non- bleeding gastric ulcer with a clean ulcer base, erythematous mucosa in the incisura, mucosa changes in the duodenum. Biopsies showed minimal inactive chronic gastritis. Colonoscopy 03/23: non-bleeding internal hemorrhoids. Hgb 7.7 on admission (Hgb was 9.3 at last discharge, baseline around 8.4-10.0)??and 9.0 morning of 05/02. Hgb 8.4 morning of 05/03. Hgb determined to be stable and safe for discharge. ?? #Atypical Chest Pain??2/2 to??costochondritis and recent SOCRATES Patient presents to the ED with constant non-exertional chest pain x 4 days with shortness of breath in the setting of recent LHC and SOCRATES. LHC done 04/25 showed normal coronary arteries, non-ischemic cardiomyopathy, elevated left sided filling pressures, uncontrolled HTN. SOCRATES done 04/26 showed mild reduced systolic function, no evience of vegetation and the mass seen on the mitral valve is a small calcification at the annulus, normal RV systolic function although they had to stop the procedure early to due patient's hypoxia.??In the ED he was hypertensive up to 225/87??and on 3 L NC satting 95%. Labs revealed troponin of 54 with a repeat of 50, BNP 597, hgb 7.7 (baseline around 03/16-03/25), ??LFTs unremarkable, INR 1.3. CXR was unremarkable. ECG showed no signs of STEMI. No melena or hematochezia on exam per the ED. He was started on a PPI, given Dilaudid and hydralazine 100 mg PO. 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 Repeat chest X-ray and ECG showed no new changes/acute cardiopulmonary abnormalities compared to 05/01 studies. Repeat troponins were normal. By morning rounds 05/03, Patient appeared well and was in no acute distress; he was dressed in home clothes and eager for discharge. On discharge continue ASA 81 mg daily. ?? #Elevated troponin likely due to demand ischemia from??HTN and recent LHC, resolved 05/01 Troponin downtrending (54 -> 50), no concerning signs on ECG ?? 05/03 Troponins 55 -> 42 #Uncontrolled HTN Continue home meds:??Hydralazine 50 mg TID, Isordil 10 mg BID, Carvedilol 12.5 mg BID, Nifedipine 90 mg BID. Lisinopril 40 mg daily held during hospitalization. ?? #ESRD on iHD (M/W/F) Dialysis at [facility] in [place], [place]. Left forearm access. On renal transplant list currently Continue home Sevelamer 1600 TID, Cinacalcet 30 mg daily, EPO with dialysis, Mag Ox, Folic acid, POiron ?? #SAL cirrhosis s/p liver transplant in 2018 #Chronic hep B due to HBV + donor Continue home cyclosporine 100 mg BID and cellcept 250 mg BID. Continue entecavir 0.5 mg q 7 days ?? #DM type II?? HbA1c 5.8 (03/2022). Continue home SSI ?? #HpEF (EF 40-45%) NYHA Class III #JC on CPAP #WHO II Pulmonary HTN TTE 03/17/22 showed an EF 40-45%, elevated PA pressures, grade 2 diastolic dysfunction, and hypokinesis of basal mid anteroseptal myocardium. Given new CPAP machine at discharge during last hospitalization and plan was to follow-up with sleep clinic to have repeat sleep study done. Following with cardiology. Follow up OP with sleep for fatigue and ensure correct CPAP machine ?? #HLD Fenofibrate 134 mg every morning ?? #Neuropathy Carbamazepine 200 mg BID ?? #Epigastric Hernia Condition on Discharge 1. Functional Status: normal Describe limitations, if any: none 2. Mental Status: Alert/Oriented Describe limitations, if any: none 3. Dietary Restrictions / Tube Feeding / TPN Diet Orders Report Diet renal starting at 05/02 160 As listed above 4. Discharge specific orders: None required 5. Core measures followed: (if this is a core measure patient) Discharge Weight: (!) 295 lb (133.8 kg) Core Measure Documentation Was the Influenza Vaccine Screening Completed?: Yes Was the influenza vaccine ordered?: No The core measures checklist is complete for discharge?: Yes Disposition Home independent Follow-Up Appointments Future Appointments Date Time Provider Department Center 05/18/2022 3:00 PM Jack Ordoñez MD [facility] No follow-up provider specified. Signed: MINNA LEUNG MD 05/03/2022, 11:12 AM Cosigned by Jorge Goldberg at 05/03/2022 3:15 PM EDT Associated attestation - Jorge Goldberg MD - 05/03/2022 3:15 PM EDT I saw and examined the patient on May 03, 2022 I have confirmed the findings and reviewed the lab values. I agree with the assessment and plan as outlined by the trainee Lab Results Component Value Date WBC 4.0 05/03/2022 RBC 2.57 (L) 05/03/2022 HGB 8.4 (L) 05/03/2022 HCT 24.9 (L) 05/03/2022 MCV 97.0 05/03/2022 MCH 32.6 05/03/2022 MCHC 33.6 05/03/2022 RDW 13.3 05/03/2022 PLT 216 05/03/2022 Lab Results Component Value Date GLUCOSE 143 (H) 05/03/2022 BUN 41 (H) 05/03/2022 CO2 28 05/03/2022 CREATININE 7.84 (H) 05/03/2022 K 3.9 05/03/2022 NA 138 05/03/2022 CL 98 05/03/2022 CALCIUM 8.8 05/03/2022 Orders Placed This Encounter Procedures IP Hemodialysis orders/machine parameters - Q MON - WED - MON In an event of an interruption, due to the time required to safely flush the lines/strip and changethe dialyzer/tubing to restart the therapy, modification of treatment duration within 15 minutes orless of the prescribed time due to technical or patient related reasons are deemed acceptable and is implied in this order set. Standing Status: Standing Number of Occurrences: 12 Order Specific Question: Diagnosis Answer: End stage renal disease Order Specific Question: Duration of treatment (hours) Answer: 3.5 Order Specific Question: Dialyzer Answer: [id number] Order Specific Question: BFR Answer: 350 mL/min Order Specific Question: DFR Answer: 700 mL/min Order Specific Question: Dialysate Temperature (C) Answer: 36 Order Specific Question: K+ Answer: Other (please specify) Comments: sliding scale Order Specific Question: Ca++ Answer: 2.5 mEq Order Specific Question: Bicarb Answer: 35 mEq Order Specific Question: Na+ Answer: 140 mEq Order Specific Question: Dry Weight/Fluid Removal Goal (Liters) Answer: edw 2-3L as bp tolerate Order Specific Question: Hepatitis B Surfaces Antigen (HBsAg) Resulted in Last 30 days? See Below Answer: No documented in this encounter Discharge Instructions * Discharge Instructions* Jessica Nye MD - 05/03/2022 10:51 AM EDT Aiden Stauffer Jr., You were admitted to the hospital for chest pain. Your cardiac workup did not show any evidence of a cardiac source for this pain. We believe this pain is from irritation after getting the SOCRATES. You can continue taking tylenol as needed every 6 hours (maximum dose of 4g per day) for the pain. If your pain changes in nature or worsens, please call your doctor or come to the ED. Here are your hospital discharge instructions: Please follow up with your PCP in 2-4 weeks 2. Continue your home medications 3. Please follow up with your Sleep Medicine doctor to discuss your home CPAP settings Thank you, Renal Medicine Team documented in this encounter Medications at Time [...] as of this encounter Progress Notes * Sunithapravin Mackenzie, PT - 05/03/2022 10:03 AM EDT Physical Therapy Initial Assessment and Discharge Name: Aiden Stauffer Jr. : 1975 Attending Physician: Jorge Goldberg Admission Diagnosis: Anemia, unspecified type [D64.9] Chest pain, unspecified type [R07.9] Date: 05/03/2022 Room: 8035/U8035 Reviewed Pertinent hospital course: Yes Hospital Course PT/OT: 47 y.o male presenting to hospital w/ chest pain and transferred from OSH with concern for NSTEMI. IN ED, Pt was hypertensive w/ SBP in 220s. Troponin 54 and 50 on repeat and BNP of 597. EKG was negative. Pt also found to be anemic with Hgb of 7.7. 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 Patient is in need ofno further skilled PT services and is safe for d/c home when medically appropriate. Recommendation Recommendation: No skilled PT, Home independently (Pt would benefit from Cardiac rehab) No Skilled PT: At baseline function Equipment Recommended: None Outcome Measures AM-PAC 6 Clicks Basic Mobility Inpatient Short Form: PT 6 Clicks Score: 24 Mobility Recommendations for Staff Patient ability: Patient ambulates in room/ to bathroom, Patient ambulates in hallway Assist needed: independently Home Living/Prior Function Patient able to provide accurate information at this time: Yes Lives With: Spouse Assistance available: 24 hour assistance Type of Home: House Home Entry: Ramped entrance Home Layout: One level Bathroom Shower/Tub: Walk-in shower Bathroom Toilet: Standard Bathroom Equipment: Shower chair;Grab bars in shower Home Equipment: Rolling Walker;Single-point cane;Wheelchair-manual;Rollator Prior Function Functional Mobility: Independent ( no assistive device) Receives Help From: None needed prior to admission ADL Assistance: Independent IADL Assistance: Intermittent assistance needed Needs assistance with: Laundry;Cleaning Vocation: Unemployed Leisure Activities: spend time with [employer] Pain Pain Score: 4 Pain Location: Chest Pain Descriptors: Tightness Pain Intervention(s): Therapeutic presence;Ambulation/increased activity;Repositioned Therapist reported pain to: RN monitoring Vision Vision/Perception Overall Vision/ Perception: Within Functional Limits Cognition Overall Cognitive Status: Within Functional Limits Cognitive Assessment: Arousal/ Alertness;Orientation Level;Behavior;Following Commands;Safety Judgment;Insight Arousal/Alertness: Alert Orientation Level: Oriented X4 Behavior: Appropriate;Cooperative Following Commands: Follows all commands and directions without difficulty Safety Judgment: Good awareness of safety precautions Insight: Demonstrated intact insight into limitation and abilities to complete ADL's safely Neuromuscular Overall Sensation: Impaired Additional Comments: reports baseline neuropathy in both feet, sensation grossly intact Upper Extremity UE Assessment: Defer to OT evaluation for formal assessment Lower Extremity Lower Extremity LE Assessment: Strength WFL (at least 3+/5) as observed during functional activity Functional Mobility Transfers Sit to Stand: Independent Stand to Sit: Independent Gait Distance (in feet): 60 ft Level of assistance: Independent Gait Characteristics: Steady;No LOB;swing-through pattern (mild steppage on LLE in swing (Pt reporting baseline since breaking ankle years ago)) Unable to progress further due to: Fatigue; SPO2 was 90% on RA with ambulation, recovers to 94% within 30 seconds seated. Balance Sitting - Static: Independent Sitting-Dynamic: Independent Standing-Static: Independent Standing-Dynamic: Independent Position after Therapy/Safety Handoff Position after treatment and safety handoff Position after therapy session: Chair Details: RN notified;Call light/ needs within reach Alarms: Chair Alarms Status: Unchanged from previous setting Goals Collaborated with: Patient Patient Stated Goal: to go home No PT goals established secondary to patient with no acute skilled PT needs. Patient stated goal(s)is/are to go home--addressed at time of eval. Discharge patient from inpatient PT services at this time. Patients and/or caregivers as well as practitioners mutually agreed upon the above goal(s)/plan. Patient/Family Education Educated patient on the role of physical therapy, importance of increased activity, discharge recommendations, safety and need for supervision during OOB activity and CHF activity guidelines and fallprevention strategies, including use of call light; patient verbalized understanding. Handout(s) issued: N/A (Pt declining need for CHF handout (reports he has received it in past), contents reviewedand Pt verbalized understanding). Plan Plan PT Frequency: One time visit--discharge from PT The plan of care and recommendations assesses the patient's and/or caregiver's readiness, willingness, and ability to provide or support functional mobility and ADL tasks as needed upon discharge. Time Start Time: 942 Stop Time: 953 Time Calculation (min): 11 min Charges $PT Evaluation Low Complex 20 Min: 1 Procedure Problem List Patient Active Problem List Diagnosis ??? Essential [...] evaluation for kidney transplant ??? Hematochezia Past Medical History Past Medical History: Diagnosis [...] ??? ABDOMINAL SURGERY ??? BACK SURGERY 04/2020 [facility] ??? COLONOSCOPY N/A 03/23/2022 Procedure: COLONOSCOPY [...] Revision 04/2017 ??? TYMPANOSTOMY TUBE PLACEMENT 07/2020 * Bridgett Cadet OT - 05/03/2022 9:28 AM EDT Occupational Therapy Initial Assessment and Discharge Name: Aiden Oviedo Eh Marques : 1975 Attending Physician: Jorge Goldberg Admission Diagnosis: Anemia, unspecified type [D64.9] Chest pain, unspecified type [R07.9] Date: 05/03/2022 Room: 8035/U80 Reviewed Pertinent hospital course: Yes Hospital Course PT/OT: 47 y.o male presenting to hospital w/ chest pain and transferred from OSH with concern for NSTEMI. IN ED, Pt was hypertensive w/ SBP in 220s. Troponin 54 and 50 on repeat and BNP of 597. EKG was negative. Pt also found to be anemic with Hgb of 7.7. 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 Pt completed functional mobility IND. Pt completed LB dressing IND. Pt reports no concerns for safety, ADL performance, or functional mobility in the home environment. D/C from OTservices at this time. Re-consult if new OT needs arise. Outcome Measures AM-PAC 6 Clicks Daily Activity Inpatient Short Form: OT 6 Clicks Score: 24 Home Living/Prior Function Patient able to provide accurate information at this time: Yes Lives With: Spouse Assistance available: 24 hour assistance Type of Home: House Home Entry: Ramped entrance Home Layout: One level Bathroom Shower/Tub: Walk-in shower Bathroom Toilet: Standard Bathroom Equipment: Shower chair, Grab bars in shower Home Equipment: Rolling Walker, Single-point cane, Wheelchair-manual, Rollator Prior Function Functional Mobility: Independent ( no assistive device) Receives Help From: None needed prior to admission ADL Assistance: Independent IADL Assistance: Intermittent assistance needed Needs assistance with: Laundry, Cleaning Vocation: Unemployed Leisure: Hobbies-yes (Comment) Leisure Activities: spend time with grandkids Currently recieving therapy services: No Pain Pain Score: 4 Pain Location: Chest Pain Descriptors: Tightness Pain Intervention(s): Therapeutic presence;Ambulation/increased activity;Repositioned Therapist reported pain to: RN monitoring Cognition Overall Cognitive Status: Within Functional Limits Cognitive Assessment: Arousal/ Alertness;Orientation Level;Behavior;Following Commands;Safety Judgment;Insight Arousal/Alertness: Alert Orientation Level: Oriented X4 Behavior: Appropriate;Cooperative Following Commands: Follows all commands and directions without difficulty Safety Judgment: Good awareness of safety precautions Insight: Demonstrated intact insight into limitation and abilities to complete ADL's safely Vision Overall Vision/ Perception: Within Functional Limits Right [...] observed during functional activites Neuromuscular Overall Sensation: Impaired Additional Comments: reports baseline neuropathy in both feet, sensation grossly intact Functional Mobility Bed Mobility Supine to Sit: Independent Transfers Sit to Stand: Independent Stand to Sit: Independent Functional Mobility: Independent (longer household distance) Balance Sitting - Static: Independent Sitting-Dynamic: Independent Standing-Static: Independent Standing-Dynamic: Independent ADL Lower Body Dressing: Independent Location Assessed LE Dressing: Seated edge of bed Lower Body Dressing Deficit Additional Comments: Pt donned shoes Position after Treatment/Safety Handoff Position after therapy session: Bed (sitting EOB) Details: RN notified;RN present;Call light/ needs within reach Alarms: Bed Alarms Status: Not needed-patient low fall risk or medium fall risk with other precautions in place Plan Plan OT Frequency: One-time visit--discharge from OT The plan of care and recommendations assesses the patient's and/or caregiver's readiness, willingness, and ability to provide or support functional mobility and ADL tasks as needed upon discharge. Goals Goals to be met in: (no acute care OT goals identified) Patient stated goal: to go home Collaborated with: Patient Patient/Family Education Educated patient on the role of occupational therapy, OT plan of care, discharge recommendation, ADL training, functional mobility training and the importance of safety and fall prevention strategiesincluding use of call light. patient verbalized understanding. OT Time Start Time: 830 Stop Time: 841 Time Calculation (min): 11 min OT Charges $OT Evaluation Low Complex 30 Min: 1 Procedure Problem List Patient Active Problem List Diagnosis ??? Essential [...] evaluation for kidney transplant ??? Hematochezia Past Medical History Past Medical History: Diagnosis [...] ??? ABDOMINAL SURGERY ??? BACK SURGERY 04/2020 [facility] ??? COLONOSCOPY N/A 03/23/2022 Procedure: COLONOSCOPY [...] Revision 04/2017 ??? TYMPANOSTOMY TUBE PLACEMENT 07/2020 * Marissa Wood RRT - 05/03/2022 6:45 AM EDT Called to patients room to administer breathing treatment. Patient refusing treatment. States albuterol makes him jittery and he is already jittery so he worries it will make him feel worse. No respiratory distress. Clear and diminished breath sounds * Laurence Charles MD - 05/02/2022 1:00 PM EDT Department of Internal Medicine Daily Progress Note Chief Complaint / Reason for Follow-up Aiden Stauffer Jr. is a 47 y.o. male on hospital day 0. The principal reason for today's follow up visit is <principal problem not specified>. Interval History / Subjective Resting in bed this morning. States CP is better down to a 2-3 / 10. Feels fatigued, but otherwise no concerns. ROS: Positive for mild chest pain. Denies dyspnea and nausea/vomiting. Physical Exam Temp: [97.6 ??F (36.4 ??C)-98.9 ??F (37.2 ??C)] 98.9 ??F (37.2 ??C) Heart Rate: [74-83] 74 Resp: [11-19] 16 BP: (131-225)/(71-112) 187/92 FiO2: [40 %] 40 % Gen: Age-appropriate adult, NAD. Alert. Awake. HEENT: NCAT. EOM grossly intact. NECK: Soft, supple, trachea midline. CHEST WALL: Tenderness to palpation across the chest wall. CV: RRR, S1 and S2 appropriate. PULM: CTAB. Normal respiratory effort. On 3 L NC. ABD: Obese, soft, reducible epigastric hernia, old surgical scar, mild tenderness to palpation in LLQ and RLQ and in the area of the hernia, no rebound or guarding EXT: Good distal pulses bilaterally, symmetric. No LE swelling. SKIN: Warm and dry. NEURO: A&O x3, answers questions appropriately, moves all extremities spontaneously. PSYCH: Appropriate affect, appropriate eye contact. Intake/Output Summary (Last 24 hours) at 05/02/2022 1301 Last data filed at 05/02/2022 1100 Gross per 24 hour Intake 320 ml Output -- Net 320 ml Diagnostic Data All laboratory data was reviewed and relevant values are noted as below. Imaging: X-ray Portable Chest Final Result IMPRESSION: Stable appearance of the chest with no acute cardiopulmonary abnormality. Report Verified by: Chicho Gamez MD at 05/01/2022 4:54 PM EDT Assessment & Plan Active Problems: * No active hospital problems. * Aiden Stauffer Jr. is a 47 y.o. male on HD# 0 with <principal problem not specified>. The medical issues being addressed in today's encounter are as follows: #Chronic Anemia #Abdominal pain Admitted to from 03/16-03/25 for GI bleed after coming in with BRBPR. He had EGD and colonoscopy atthat time which showed non-bleeding internal hemorrhoids. He was placed on PPI twice daily. No recurrent bleeding, plan was for repeat EGD in 8 weeks, currently scheduled for 05/18. EGD 03/23: small hiatal hernia, non- bleeding gastric ulcer with a clean ulcer base, erythematous mucosa in the incisura, mucosa changes in the duodenum. Biopsies showed minimal inactive chronic gastritis. Colonoscopy 03/23: non-bleeding internal hemorrhoids. Hgb 7.7 on admission (Hgb was 9.3 at last discharge, baselinearound 8.4-10.0) and 9.0 morning of 05/02. Pt with on episode of black stool -Phenergan 12.5 q 6 hours PRN -Tylenol for pain control -Follow CBCs ?? #Atypical Chest Pain 2/2 to costochondritis and recent SOCRATES Patient presents to the ED with constant non-exertional chest pain x 4 days with shortness of breath in the setting of recent LHC and SOCRATES. LHC done 04/25 showed normal coronary arteries, non-ischemic cardiomyopathy, elevated left sided filling pressures, uncontrolled HTN. SOCRATES done 04/26 showed mild reduced systolic function, no evience of vegetation and the mass seen on the mitral valve is a small calcification at the annulus, normal RV systolic function although they had to stop the procedure early to due patient's hypoxia. In the ED he was hypertensive up to 225/87 and on 3 L NC satting 95%. Labs revealed troponin of 54 with a repeat of 50, BNP 597, hgb 7.7 (baseline around 03/16-03/25), LFTs u nremarkable, INR 1.3. CXR was unremarkable. ECG showed no signs of STEMI. No melena or hematocheziaon exam per the ED. He was started on a PPI, given Dilaudid and hydralazine 100 mg PO. ?? -Lidocaine patch -Tylenol PRN -Tele/pulse ox -Continue ASA 81 mg daily ?? #Elevated troponin likely due to demand ischemia from HTN and recent LHC, resolved Troponin downtrending (54 -> 50), no concerning signs on ECG ?? #Uncontrolled HTN Holding home: Lisinopril 40 mg daily -Continue Hydralazine 50 mg TID, Imdur 30 mg TID, Carvedilol 12.5 mg BID, Nifedipine 90 mg BID ?? #ESRD on iHD (M/W/F) Dialysis at [facility] in [place], [place]. Left forearm access. On renal transplant list currently -Sevelamer 1600 TID -Cinacalcet 30 mg daily -EPO with dialysis -Mag Ox -Folic acid -PO iron ?? #SAL cirrhosis s/p liver transplant in 2018 #Chronic hep B due to HBV + donor -Continue home cyclosporine 100 mg BID and cellcept 250 mg BID -Continue entecavir 0.5 mg q 7 days ?? #DM type II -HbA1c 5.8 (03/2022) -On SSI at home -Lispro 0-5 units TID and Lispro 0-4 units qhs ?? #HpEF (EF 40-45%) #JC on CPAP #WHO II Pulmonary HTN TTE 03/17/22 showed an EF 40-45%, elevated PA pressures, grade 2 diastolic dysfunction, and hypokinesis of basal mid anteroseptal myocardium. Given new CPAP machine at discharge during last hospitalization and plan was to follow-up with sleep clinic to have repeat sleep study done. Following with cardiology - follow up OP with sleep for fatigue and ensure correct CPAP machine ?? #HLD Fenofibrate 134 mg every morning ?? #Neuropathy Carbamazepine 200 mg BID #Epigastric Hernia Code Status: full DVT Prophylaxis: SQH GI Prophylaxis: protonix Nutrition: regular diet low phos Disposition Plan: home Laurence Charles MD Anesthesia PGY-1 Cosigned by Jorge Goldberg at 05/02/2022 1:39 PM EDT Associated attestation - Jorge Goldberg MD - 05/02/2022 1:39 PM EDT Copied from my attestation to H and P I saw and examined the patient on May 02, 2022 Discussed with patient plan for IHD today. Chest pain has improved per patient, tolerating oral medications, patient recently had cardiac workup with SOCRATES and cath and also GI workup in March 2022. Repeat hemoglobin was better. Possible dischargetomorrow. I have confirmed the findings and reviewed the lab values. I agree with the assessment and plan as outlined by the trainee Lab Results Component Value Date WBC 4.6 05/02/2022 RBC 2.74 (L) 05/02/2022 HGB 9.0 (L) 05/02/2022 HCT 27.1 (L) 05/02/2022 MCV 99.1 05/02/2022 MCH 32.8 05/02/2022 MCHC 33.1 05/02/2022 RDW 13.6 05/02/2022 PLT 228 05/02/2022 Lab Results Component Value Date GLUCOSE 121 (H) 05/02/2022 BUN 68 (H) 05/02/2022 CO2 29 05/02/2022 CREATININE 11.20 (H) 05/02/2022 K 4.7 05/02/2022 NA 140 05/02/2022 CL 96 (L) 05/02/2022 CALCIUM 8.6 05/02/2022 * Mandi Lenz RRT - 05/01/2022 11:19 PM EDT Patient unable to wear home cpap due to patient currently being in a positive airflow room. Patientok with being on nasal cannula until he gets a room upstairs. Patient on 3L NC, SP02 >92% * Daren Lawson MD - 05/01/2022 3:09 PM EDT ED Attending Attestation Note Date of service: 05/01/2022 This patient was seen by the resident physician. I have seen and examined the patient, agree with the workup, evaluation, management and diagnosis. The care plan has been discussed and I concur. I have reviewed the ECG and concur with the resident's interpretation. My assessment reveals a 47 y.o. male with a history of ESRD on hemodialysis (M/W/F via LUE fistula)in addition to nonischemic cardiomyopathy with a EF of 45-50% and G2DD presenting today with concern for chest pressure. Patient had a left heart catheterization performed on 04/25/2022 and had his last dialysis 2 days ago on 04/29/2022 on schedule. He says that he feels chest pressure with mild shortness of breath. On my exam, the patient has distant heart sounds, breath sounds are equal and symmetrical without focal crackles. His abdomen is obese but not obviously tender with a well-healed right upper quadrant scar. He has no leg edema. He does have bruising to the right forearm with a palpable radial pulse. Of note, the patient did drop his hemoglobin to 7.7 from his baseline around 9. Thepatient does report what sounds like melenic stool described as dark and smelly like a chemical within the past couple of days. documented in this encounter H&P Notes * Cecelia Kristal, DO - 05/01/2022 8:47 PM EDT Department of Internal Medicine History & Physical Patient: Aiden Stauffer Jr. Chief Complaint(s): Chest Pain History of Present Illness Aiden Stauffer Jr. is a 47 y.o. 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 Mr. Stauffer states he had a LHC done on Monday (04/25) for CHF/volume overload and a SOCRATES done on Monday for what was thought to be MV vegetation seen on last admission beginning of March. He had onset of band like chest pain across his chest on (4 days ago) that he describes as a progressively worsening constant chest tightness/pressure. The pain is worse with deep breathing, non-exertional, does not radiate anywhere. He states he has had some associated shortness of breath, nausea andgeneralized weakness. He has also noted some lower abdominal discomfort and discomfort over his epigastric hernia that is worse than his baseline. He states he had one black stool on that had chemical odor but none there after. Denies any BRBPR, vomiting, fevers, chills, diaphoresis or other complaints. In the ED he was hypertensive up to 225/87 and on 3 L NC satting 95%. Labs revealed troponin of 54 with a repeat of 50, BNP 597, hgb initially 7.7 (Hgb was 9.3 at last discharge, baseline around 8.4-10.0)), LFTs unremarkable, INR 1.3. CXR was unremarkable. ECG showed no signs of STEMI. No melena orhematochezia on exam per the ED. He was started on a PPI, given Dilaudid and hydralazine 100 mg PO.Admitted for new anemia and elevated cardiac markers. LHC done 04/25 showed normal coronary arteries, non-ischemic cardiomyopathy, elevated left sided filling pressures, uncontrolled HTN. SOCRATES done 04/26 showed mild reduced systolic function, no evience ofvegetation and the mass seen on the mitral valve is a small calcification at the annulus, normal RVsystolic function although they had to stop the procedure early to due patient's hypoxia. Of note, Mr. Stauffer was recently admitted to from 03/16-03/25 for GI bleed after coming in with BRBPR. He had EGD and colonoscopy at that time which showed non- bleeding gastric ulcer with a clean ulcer base and non-bleeding internal hemorrhoids. He was placed on PPI twice daily. No recurrent bleeding, plan was for repeat EGD in 8 weeks. He was also volume overloaded during his stay and had swan guided diuresis in the CVICU. Right heart cath showed severe pulmonary HTN. Cardiology determined volume overload was from ESRD. TTE was done and there was suspicion for MV vegetation later found to becalcification. Update: hgb morning of 05/02 is 9.0 Review of Systems Review of Systems Constitutional: Positive for malaise/fatigue. Negative for chills and fever. HENT: Positive for congestion. Respiratory: Positive for shortness of breath. Negative for cough. Cardiovascular: Positive for chest pain. Negative for palpitations and leg swelling. Gastrointestinal: Positive for abdominal pain, melena and nausea. Negative for constipation, diarrhea and vomiting. Musculoskeletal: Negative for myalgias. Neurological: Positive for generalized weakness. Psychiatric/Behavioral: Negative for substance abuse. All other systems reviewed and are negative. Past Medical History Past Medical History: Diagnosis [...] ??? ABDOMINAL SURGERY ??? BACK SURGERY 04/2020 [facility] ??? COLONOSCOPY N/A 03/23/2022 Procedure: COLONOSCOPY [...] 04/2017 ??? TYMPANOSTOMY TUBE PLACEMENT 07/2020 Family and Social Hx Family History Problem Relation Age of Onset ??? Asthma Mother ??? Kidney disease Mother ??? Diabetes Mother ??? Alcohol abuse Father ??? Esophageal Cancer Father ??? Heart failure Sister ??? Diabetes Sister ??? Liver disease Sister ??? Alcohol abuse Sister ??? Anesthesia problems Neg Hx - Family history reviewed and non-contributory other than stated above. Social History Socioeconomic History ??? Marital status: [...] Not on file Supplemental SHx: - Tobacco: Non-smoker. - Alcohol: No alcohol use. - Drugs: denies illicit drug use. - Lives with and child. Medications Allergies: Allergies Allergen Reactions ??? Tacrolimus Other (See Comments) Anxious feeling and muscle jerking. TOLERATED ENVARSUS BETTER THAN PROGRAF. ??? Codeine Sulfate Hyper ??? Codeine Other (See Comments) Becomes hyper Home Meds: Prior to Admission medications Medication Sig Start Date End Date Taking? Authorizing Provider ALPRAZolam (XANAX) 0.5 MG tablet Take 0.5 mg by mouth if needed for Sleep. Historical Provider, aspirin 81 MG chewable tablet Chew 1 tablet (81 mg total) by mouth daily with breakfast. 10/17/17 Bere Feng, RAMON calcium acetate,phosphat bind, (PHOSLO) 667 mg capsule Take 667 mg by mouth 3 times a day with meals. Historical Provider, carBAMazepine (TEGRETOL) 200 mg tablet Take 200 mg by mouth 2 times a day. Historical Provider, carvediloL (COREG) 12.5 MG tablet Take 1 tablet (12.5 mg total) by mouth 2 times a day with meals. 03/25/22 Alex De Guzman, cholecalciferol, vitamin D3, 1,250 mcg (50,000 unit) capsule Take 1 capsule by mouth three times weekly on Monday, , and Monday. 01/06/22 Historical Provider, cinacalcet (SENSIPAR) 30 MG tablet Take 1 tablet (30 mg total) by mouth daily with breakfast. 03/26/22 Alex De Guzman DO cycloSPORINE modified (CYCLOSPORINE MODIFIED) 25 MG capsule Take 4 capsules (100 mg total) by mouth2 times a day. 09/16/21 Jack Ordoñez MD doxazosin (CARDURA) 8 MG tablet Take 8 mg by mouth at bedtime. 05/12/18 Historical Provider, entecavir (BARACLUDE) 0.5 MG tablet Take 1 tablet (0.5 mg total) by mouth every 7 days. 01/05/21 Jack Ordoñez MD fenofibrate micronized (LOFIBRA) 134 MG capsule Take 134 mg by mouth every morning before breakfast. Historical Provider, ferrous sulfate 325 (65 FE) MG tablet Take 1 tablet (325 mg total) by mouth daily with breakfast. 11/02/21 Kate Santos MD folic acid (FOLVITE) 1 MG tablet Take 1 tablet (1 mg total) by mouth daily. 11/02/21 Kate Santos MD gabapentin (NEURONTIN) 100 MG capsule Take 1 capsule (100 mg total) by mouth 3 times a day. 03/25/22Alex De Guzman DO hydrALAZINE (APRESOLINE) 100 MG tablet Take 1 tablet (100 mg total) by mouth every 8 hours. 06/25/20 Jake Zavala MD insulin aspart U-100 (NOVOLOG) 100 unit/mL injection Administers per sliding scale 3 times daily with meals Historical Provider, isosorbide mononitrate (IMDUR) 30 MG 24 hr tablet Take 3 tablets (90 mg total) by mouth daily. 03/26/22 Alex De Guzman DO lidocaine (LIDODERM) 5 % Place 1 patch onto the skin daily as needed. 04/26/21 Historical Provider, lisinopriL (PRINIVIL) 40 MG tablet Take 1 tablet (40 mg total) by mouth daily. 03/26/22 Alex De Guzman DO magnesium oxide (MAG-OX) 400 mg tablet Take 1 tablet (400 mg total) by mouth 2 times a day. 03/25/22Alex De Guzman DO methocarbamoL (ROBAXIN) 500 MG tablet Take 500 mg by mouth 4 times daily before meals and at bedtime. Historical Provider, montelukast (SINGULAIR) 10 mg tablet Take 10 mg by mouth daily. 03/08/22 Historical Provider, mycophenolate (CELLCEPT) 250 mg capsule Take 1 capsule (250 mg total) by mouth 2 times a day. 02/09/22 Jack Ordoñez MD NIFEdipine (PROCARDIA-XL) 90 MG (OSM) 24 hr tablet Take 90 mg by mouth 2 times a day. 04/23/18 Historical Provider, ondansetron (ZOFRAN-ODT) 4 MG disintegrating tablet Take 4 mg by mouth every 8 hours as needed. 04/11/18 Historical Provider, pantoprazole (PROTONIX) 40 MG tablet Take 1 tablet (40 mg total) by mouth 2 times a day. 03/25/22 Alex De Guzman DO polyethylene glycol (MIRALAX) 17 gram packet Take 17 g by mouth daily as needed (mild constipation (no BM for 24 hrs)). 06/25/20 Jake Zavala MD proMETHazine (PHENERGAN) 12.5 MG tablet Take 12.5 mg by mouth every 6 hours as needed. Historical Provider, sevelamer carbonate (RENVELA) 800 mg tablet Take 1,600 mg by mouth 3 times a day with meals. Historical Provider, testosterone cypionate (DEPOTESTOTERONE CYPIONATE) 200 mg/mL injection Inject into the muscle. Historical Provider, VASCEPA 1 gram Cap TAKE 2 Capsule by mouth twice daily 03/08/22 Historical Provider, Inpatient Meds: Scheduled: ??? carBAMazepine 200 mg Oral BID ??? cycloSPORINE modified 100 mg Oral BID ??? folic acid 1 mg Oral Daily 0900 ??? hydrALAZINE 50 mg Oral Q8H ??? insulin lispro 0-4 Units Subcutaneous Nightly (2100) ??? insulin lispro 0-5 Units Subcutaneous TID AC ??? isosorbide dinitrate 10 mg Oral BID ??? lidocaine 1 patch Transdermal Q24H ? ? methocarbamoL 500 mg Oral 4x Daily AC & HS ??? mycophenolate 250 mg Oral BID ??? NIFEdipine 90 mg Oral BID ??? ondansetron 4 mg Intravenous Once ??? pantoprazole (PROTONIX) IV 40 mg Intravenous BID6 ??? sevelamer carbonate 1,600 mg Oral TID WC Continuous: PRN: Vital Signs Temp: [97.6 ??F (36.4 ??C)-98.8 ??F (37.1 ??C)] 98.1 ??F (36.7 ??C) Heart Rate: [74-83] 83 Resp: [11-19] 18 BP: (131-225)/(71-112) 131/76 FiO2: [40 %] 40 % SpO2: 93 % O2 Device: None (Room air) O2 Flow Rate (L/min): 3 L/min No intake or output data in the 24 hours ending 05/02/22 0840 Body mass index is 43.56 kg/m??. Physical Exam: Gen: Age-appropriate adult, NAD. Alert. Awake. HEENT: NCAT. EOM grossly intact. NECK: Soft, supple, trachea midline. CHEST WALL: Tenderness to palpation across the chest wall. CV: RRR, S1 and S2 appropriate. PULM: CTAB. Normal respiratory effort. On 3 L NC. ABD: Obese, soft, reducible epigastric hernia, old surgical scar, mild tenderness to palpation in LLQ and RLQ and in the area of the hernia, no rebound or guarding EXT: Good distal pulses bilaterally, symmetric. No LE swelling. SKIN: Warm and dry. NEURO: A&O x3, answers questions appropriately, moves all extremities spontaneously. PSYCH: Appropriate affect, appropriate eye contact. Laboratory Data Lab 05/02/2244805/01/22 16204/25/22 1203 SODIUM 140 140 143 POTASSIUM 4.7 4.3 4.1 CHLORIDE 96* 98 98 CO2 29 26 30 BUN 68* 60* 51* CREATININE 11.20* 10.32* 7.80* GLUCOSE 121* 95 85 CALCIUM 8.6 8.6 9.2 MAGNESIUM 2.0 -- -- PHOSPHORUS 7.7* -- -- Lab 05/02/2244805/01/22 16204/25/22 1203 WBC 4.6 5.6 4.1 HEMOGLOBIN 9.0* 7.7* 9.3* HEMATOCRIT 27.1* 22.7* 27.9* MEAN CORPUSCULAR VOLUME 99.1 97.8 97.8 PLATELETS 228 248 228 Lab 05/02/2244805/01/22 1940 04/25/22 1203 AST -- 11* -- ALT -- 6* -- ALK PHOS -- 66 -- BILIRUBIN TOTAL -- 0.7 -- BILIRUBIN DIRECT -- 0.25 -- ALBUMIN -- 4.4 -- ALBUMINKID 4.2 -- -- TOTAL PROTEIN -- 7.8 -- INR 1.3* 1.3* 1.2* PROTHROMBIN TIME 16.1* 16.5* 15.3* Lab 05/01/221628 BNP 597* Lab 05/02/22 0835 05/01/22 1933 POC GLU MONITORING DEVICE 117* 102* VBG: ABG: UDS: No results found for: METHADSCRNUR, METHAMSCRNUR, TCASCRNUR, AMPHETSCRNUR, BARBSCRNUR, BENZOSCRNUR,OPIATESCRNUR, PHENSCRNUR, THCSCRNUR, COCAINSCRNUR Diagnostic Studies X-ray Portable Chest Result Date: 05/01/2022 IMPRESSION: Stable appearance of the chest with no acute cardiopulmonary abnormality. Report Verified by: Chicho Gamez MD at 05/01/2022 4:54 PM EDT Assessment & Plan Aiden Stauffer Jr. is a 47 y.o. 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 Admitted for new anemia and elevated cardiac markers. #Chronic Anemia #Concern for melena #Abdominal pain -Admitted to from 03/16-03/25 for GI bleed after coming in with BRBPR. He had EGD and colonoscopy at that time which showed non-bleeding internal hemorrhoids. He was placed on PPI twice daily. No recurrent bleeding, plan was for repeat EGD in 8 weeks, currently scheduled for 05/18. -EGD 03/23: small hiatal hernia, non-bleeding gastric ulcer with a clean ulcer base, erythematous mucosa in the incisura, mucosa changes in the duodenum. Biopsies showed minimal inactive chronic gastritis. -Colonoscopy 03/23: non-bleeding internal hemorrhoids -Hgb 7.7 on admission (Hgb was 9.3 at last discharge, baseline around 8.4-10.0) and 9.0 morning of 05/02 -Pt with on episode of black stool PLAN -Phenergan 12.5 q 6 hours PRN -Tylenol for pain control -Follow CBCs #Atypical Chest Pain likely multifactorial due to costochondritis and recent SOCRATES -Patient presents to the ED with constant non-exertional chest pain x 4 days with shortness of breath in the setting of recent LHC and SOCRATES. -LHC done 04/25 showed normal coronary arteries, non-ischemic cardiomyopathy, elevated left sided filling pressures, uncontrolled HTN. SOCRATES done 04/26 showed mild reduced systolic function, no evience of vegetation and the mass seen on the mitral valve is a small calcification at the annulus, normal RV systolic function although they had to stop the procedure early to due patient's hypoxia. -In the ED he was hypertensive up to 225/87 and on 3 L NC satting 95%. Labs revealed troponin of 54with a repeat of 50, BNP 597, hgb 7.7 (baseline around 03/16-03/25), LFTs unremarkable, INR 1.3. CXR was unremarkable. ECG showed no signs of STEMI. No melena or hematochezia on exam per the ED. He was started on a PPI, given Dilaudid and hydralazine 100 mg PO. Admitted for new anemia and elevated cardiac markers. PLAN -Lidocaine patch -Tylenol PRN -Tele/pulse ox -Continue ASA 81 mg daily #Elevated troponin likely due to demand ischemia from HTN and recent LHC -Troponin downtrending (54 -> 50), no concerning signs on ECG #Uncontrolled HTN -Holding home: Carvedilol 12.5 mg BID, Lisinopril 40 mg daily -Continue Hydralazine 50 mg TID, Imdur 30 mg TID, Nifedipine 90 mg BID #ESRD on iHD (M/W/F) -Dialysis at [facility] in [place], [place] -Left forearm access -On renal transplant list currently -Sevelamer 1600 TID -Cinacalcet 30 mg daily -EPO with dialysis -Mag Ox -Folic acid -PO iron #SAL cirrhosis s/p liver transplant in 2018 #Chronic hep B due to HBV + donor -Continue home cyclosporine 100 mg BID and cellcept 250 mg BID -Continue entecavir 0.5 mg q 7 days #DM type II -HbA1c 5.8 (03/2022) -On SSI at home -Lispro 0-5 units TID and Lispro 0-4 units qhs #HpEF (EF 40-45%) #JC on CPAP #WHO II Pulmonary HTN TTE 03/17/22 showed an EF 40-45%, elevated PA pressures, grade 2 diastolic dysfunction, and hypokinesis of basal mid anteroseptal myocardium -Given new CPAP machine at discharge during last hospitalization and plan was to follow-up with sleep clinic to have repeat sleep study done -Following with cardiology #HLD -Fenofibrate 134 mg every morning #Neuropathy -Carbamazepine 200 mg BID #Epigastric Hernia Nutrition: Diet Orders Report Diet regular starting at 05/02 0620 Code Status: Full Code DVT PPx: SCDs Disposition: med/surg floor Cecelia Giraldo DO Internal Medicine Resident, PGY-1 05/02/2022 8:40 AM Cosigned by Jorge Goldberg at 05/02/2022 1:00 PM EDT Associated attestation - Jorge Goldberg MD - 05/02/2022 1:00 PM EDT I saw and examined the patient on May 02, 2022 Discussed with patient plan for IHD today. Chest pain has improved per patient, tolerating oral medications, patient recently had cardiac workup with SOCRATES and cath and also GI workup in March 2022. Repeat hemoglobin was better. Possible dischargetomorrow. I have confirmed the findings and reviewed the lab values. I agree with the assessment and plan as outlined by the trainee Lab Results Component Value Date WBC 4.6 05/02/2022 RBC 2.74 (L) 05/02/2022 HGB 9.0 (L) 05/02/2022 HCT 27.1 (L) 05/02/2022 MCV 99.1 05/02/2022 MCH 32.8 05/02/2022 MCHC 33.1 05/02/2022 RDW 13.6 05/02/2022 PLT 228 05/02/2022 Lab Results Component Value Date GLUCOSE 121 (H) 05/02/2022 BUN 68 (H) 05/02/2022 CO2 29 05/02/2022 CREATININE 11.20 (H) 05/02/2022 K 4.7 05/02/2022 NA 140 05/02/2022 CL 96 (L) 05/02/2022 CALCIUM 8.6 05/02/2022 Orders Placed This Encounter Procedures IP Hemodialysis orders/machine parameters - Q MON - WED - MON In an event of an interruption, due to the time required to safely flush the lines/strip and changethe dialyzer/tubing to restart the therapy, modification of treatment duration within 15 minutes orless of the prescribed time due to technical or patient related reasons are deemed acceptable and is implied in this order set. Standing Status: Standing Number of Occurrences: 12 Order Specific Question: Diagnosis Answer: End stage renal disease Order Specific Question: Duration of treatment (hours) Answer: 3.5 Order Specific Question: Dialyzer Answer: [id number] Order Specific Question: BFR Answer: 350 mL/min Order Specific Question: DFR Answer: 700 mL/min Order Specific Question: Dialysate Temperature (C) Answer: 36 Order Specific Question: K+ Answer: Other (please specify) Comments: sliding scale Order Specific Question: Ca++ Answer: 2.5 mEq Order Specific Question: Bicarb Answer: 35 mEq Order Specific Question: Na+ Answer: 140 mEq Order Specific Question: Dry Weight/Fluid Removal Goal (Liters) Answer: edw 2-3L as bp tolerate Order Specific Question: Hepatitis B Surfaces Antigen (HBsAg) Resulted in Last 30 days? See Below Answer: No * Jelani Middleton MD - 05/01/2022 3:09 PM EDT [facility] ED Note Date of Service: 05/01/2022 Reason for Visit: Chest Pain Patient History HPI Aiden Stauffer Jr. is a 47 y.o. male with a PMH significant for esophageal varices with bleeding, hepatic encephalopathy's, pancreatitis, liver failure secondary to SAL s/p liver transplantation 09/2017, ESRD on hemodialysis MWF on transplant list, diabetes mellitus, pulmonary hypertension who presents for evaluation of chest pain. Patient reports that he recently had a left heart cath and SOCRATES within the past week there were bothunremarkable. After having his SOCRATES on Monday, he states that he went home and had a hard time waking up from anesthesia. He states that when he woke up on Monday he began to have chest pain on the left side of his chest in the sternum that does not radiate is not exertional and is nonpleuritic. He said it was about a 2 out of 10 initially and that has progressed to where it is now at 8 of 10. It is not episodic and has been constant since that time without relief. He states that he has been intermittently nauseated without actual emesis. He denies diaphoresis, lightheadedness, or syncope. He does endorse two- pillow orthopnea without PND or peripheral edema. He states he has been short of breath. He was seen in outside facility where he was told to come here because he had elevated cardiac markers. Patient does endorse an episode of melanotic stools. Other than stated above, no additional associated symptoms or aggravating or alleviating factors are noted. Past Medical History: Diagnosis Date ??? Acute [...] ??? ABDOMINAL SURGERY ??? BACK SURGERY 04/2020 [facility] ??? COLONOSCOPY N/A 03/23/2022 Procedure: COLONOSCOPY [...] Revision 04/2017 ??? TYMPANOSTOMY TUBE PLACEMENT 07/2020 Patient reports that he has never smoked. He has never used smokeless tobacco. He reports that he does not drink alcohol and does not use drugs. Previous Medications ALPRAZOLAM (XANAX) 0.5 MG TABLET Take 0.5 mg by mouth if needed for Sleep. ASPIRIN 81 MG CHEWABLE TABLET Chew 1 tablet (81 mg total) by mouth daily with breakfast. CALCIUM ACETATE,PHOSPHAT BIND, (PHOSLO) 667 MG CAPSULE Take 667 mg by mouth 3 times a day with meals. CARBAMAZEPINE (TEGRETOL) 200 MG TABLET Take 200 mg by mouth 2 times a day. CARVEDILOL (COREG) 12.5 MG TABLET Take 1 tablet (12.5 mg total) by mouth 2 times a day with meals. CHOLECALCIFEROL, VITAMIN D3, 1,250 MCG (50,000 UNIT) CAPSULE Take 1 capsule by mouth three times weekly on Monday, , and Saturday. CINACALCET (SENSIPAR) 30 MG TABLET Take 1 tablet (30 mg total) by mouth daily with breakfast. CYCLOSPORINE MODIFIED (CYCLOSPORINE MODIFIED) 25 MG CAPSULE Take 4 capsules (100 mg total) by mouth2 times a day. DOXAZOSIN (CARDURA) 8 MG TABLET Take 8 mg by mouth at bedtime. ENTECAVIR (BARACLUDE) 0.5 MG TABLET Take 1 tablet (0.5 mg total) by mouth every 7 days. FENOFIBRATE MICRONIZED (LOFIBRA) 134 MG CAPSULE Take 134 mg by mouth every morning before breakfast. FERROUS SULFATE 325 (65 FE) MG TABLET Take 1 tablet (325 mg total) by mouth daily with breakfast. FOLIC ACID (FOLVITE) 1 MG TABLET Take 1 tablet (1 mg total) by mouth daily. GABAPENTIN (NEURONTIN) 100 MG CAPSULE Take 1 capsule (100 mg total) by mouth 3 times a day. HYDRALAZINE (APRESOLINE) 100 MG TABLET Take 1 tablet (100 mg total) by mouth every 8 hours. INSULIN ASPART U-100 (NOVOLOG) 100 UNIT/ML INJECTION Administers per sliding scale 3 times daily with meals ISOSORBIDE MONONITRATE (IMDUR) 30 MG 24 HR TABLET Take 3 tablets (90 mg total) by mouth daily. LIDOCAINE (LIDODERM) 5 % Place 1 patch onto the skin daily as needed. LISINOPRIL (PRINIVIL) 40 MG TABLET Take 1 tablet (40 mg total) by mouth daily. MAGNESIUM OXIDE (MAG-OX) 400 MG TABLET Take 1 tablet (400 mg total) by mouth 2 times a day. METHOCARBAMOL (ROBAXIN) 500 MG TABLET Take 500 mg by mouth 4 times daily before meals and at bedtime. MONTELUKAST (SINGULAIR) 10 MG TABLET Take 10 mg by mouth daily. MYCOPHENOLATE (CELLCEPT) 250 MG CAPSULE Take 1 capsule (250 mg total) by mouth 2 times a day. NIFEDIPINE (PROCARDIA-XL) 90 MG (OSM) 24 HR TABLET Take 90 mg by mouth 2 times a day. ONDANSETRON (ZOFRAN-ODT) 4 MG DISINTEGRATING TABLET Take 4 mg by mouth every 8 hours as needed. PANTOPRAZOLE (PROTONIX) 40 MG TABLET Take 1 tablet (40 mg total) by mouth 2 times a day. POLYETHYLENE GLYCOL (MIRALAX) 17 GRAM PACKET Take 17 g by mouth daily as needed (mild constipation (no BM for 24 hrs)). PROMETHAZINE (PHENERGAN) 12.5 MG TABLET Take 12.5 mg by mouth every 6 hours as needed. SEVELAMER CARBONATE (RENVELA) 800 MG TABLET Take 1,600 mg by mouth 3 times a day with meals. TESTOSTERONE CYPIONATE (DEPOTESTOTERONE CYPIONATE) 200 MG/ML INJECTION Inject into the muscle. VASCEPA 1 GRAM CAP TAKE 2 Capsule by mouth twice daily Allergies: Allergies as of 05/01/2022 - Fully Reviewed 05/01/2022 Allergen Reaction Noted ??? Tacrolimus Other (See Comments) 03/02/2021 ??? Codeine sulfate 01/12/2019 ??? Codeine Other (See Comments) 08/18/2017 All nursing notes and triage notes were appropriately reviewed in the course of the creation of this note. Review of Systems Review of Systems Constitutional: Negative for chills and fever. HENT: Negative for ear pain. Eyes: Negative for pain. Respiratory: Positive for cough and shortness of breath. Negative for hemoptysis. Cardiovascular: Positive for chest pain and orthopnea. Negative for palpitations and leg swelling. Gastrointestinal: Positive for blood in stool and nausea. Negative for vomiting. Genitourinary: Negative for dysuria. Musculoskeletal: Negative for myalgias. Skin: Negative for rash. Neurological: Negative for dizziness, loss of consciousness and weakness. Endo/Heme/Allergies: Does not bruise/bleed easily. Psychiatric/Behavioral: Negative for substance abuse. All other systems are negative except as mentioned in HPI. Physical Exam Vitals: 05/01/22 1551 05/01/22 1807 BP: 187/84 185/83 BP Location: Right leg Right leg Patient Position: Lying Lying Pulse: 74 77 Resp: 15 16 Temp: 97.6 ??F (36.4 ??C) TempSrc: Oral SpO2: 96% 99% Physical Exam Constitutional: General: He is not in acute distress. Appearance: Normal appearance. HENT: Head: Normocephalic and atraumatic. Nose: Nose normal. Eyes: Extraocular Movements: Extraocular movements intact. Pupils: Pupils are equal, round, and reactive to light. Cardiovascular: Rate and Rhythm: Normal rate and regular rhythm. Pulses: Normal pulses. Heart sounds: Normal heart sounds. Pulmonary: Effort: Pulmonary effort is normal. Breath sounds: Normal breath sounds. Abdominal: General: Abdomen is flat. Palpations: Abdomen is soft. Tenderness: There is no abdominal tenderness. Genitourinary: Comments: No external lesions. Normal rectal tone. Nonmelanotic stools no pia hematochezia. Musculoskeletal: General: No tenderness. Normal range of motion. Cervical back: Normal range of motion. No tenderness. Skin: General: Skin is warm. Findings: No bruising or erythema. Neurological: General: No focal deficit present. Mental Status: He is alert and oriented to person, place, and time. Mental status is at baseline. Psychiatric: Mood and Affect: Mood normal. Behavior: Behavior normal. Thought Content: Thought content normal. Judgment: Judgment normal. Diagnostic Studies Labs: Please see electronic medical record for any tests performed in the ED Radiology: X-ray Portable Chest Final Result IMPRESSION: Stable appearance of the chest with no acute cardiopulmonary abnormality. Report Verified by: Chicho Gamez MD at 05/01/2022 4:54 PM EDT Emergency Department Procedures Procedures ED Course and MDM Aiden Stauffer Jr. is a 47 y.o. male with a history and presentation as described above in HPI. Thepatient was evaluated by myself and the ED Attending Physician, , and R4 Dr. Dr. Farnsworth,. All management and disposition plans were discussed and agreed upon. This patient has had chest pain since his SOCRATES that has not improved over time. At outside facility,he was found to have elevated cardiac markers. As result, we initiated a broad cardiac work-up. Hischest x-ray did not show any signs of acute cardiopulmonary abnormalities. His EKG did not have obvious signs of dysrhythmia or acute ischemic changes. Notably, his CBC was evident for a hemoglobin to 7.7. This is a significant drop from his most recent 6 days ago at 9.3. His rectal examination didnot show any melanotic stools however he does report seeing them. It is possible that he might be having an upper GI bleed. Hepatic function and PT/INR have been ordered and are still pending at thistime. His troponin was elevated at 54 and his 1 hour delta was 50. Considering his hemodialysis requirements, he will be mated to renal for further evaluation where he will likely require a cardiology and GI consultation. While in the emergency department he is remained afebrile and hemodynamicallystable. His pain is better controlled with Dilaudid and his nausea has been controlled with Zofran. At this time the patient has been admitted to renal for further evaluation and management of anemiaand elevated cardiac markers. The patient will continue to be monitored here in the emergency department until which time he is moved to his new treatment location. Medications received during this ED visit: Medications HYDROmorphone (DILAUDID) injection Syrg 1 mg (1 mg Intravenous Given 05/01/221711) Impression 1. Chest pain, unspecified type 2. Anemia, unspecified type Plan 1. The patient is to be admitted in stable/improved condition 2. Workup, treatment and diagnosis were discussed with the patient and/or family members; the patient agrees to the plan and all questions were addressed and answered. JELANI MIDDLETON MD, PGY-1 Emergency Medicine Critical Care Time (Attendings) Jelani Middleton MD Resident 05/01/22 1930 Cosigned by Daren Lawson MD at 05/01/2022 7:31 PM EDT documented in this encounter Consult Notes * Skylar Hickman RN - 05/03/2022 11:54 AM EDT [facility] Case Management/Social Work Department Brief Assessment Re-Admission within 30 days Planned or unplanned? If planned: Reason? If unplanned: Reason? Discuss with patient any barriers to prevent re-admission? Patient Information Admission diagnosis: Chest Pain Demographic verified and updated as needed Support Systems Designated decision maker (POA or Next of Kin): Kym Stauffer Phone #: [phone] Relationship: Living Arrangements Prior to Hospitalization Per chart review, pt lives in a private residence with his and child. 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 Community Resources Prior to Hospitalization Per chart review, pt receives HD at [facility], on MWF 6:30am. Discharge Plan Anticipated discharge plan: Home with no needs Anticipated discharge date: 05/03 Transportation at Discharge: Family Please contact CM/SW for any further discharge planning needs. Patient/Family aware and taking part in the discharge plan. Patient/family educated that once post-acute care needs have been identified, a provider list applicable to the identified post-acute care needs as well as the insurance provider will be provided, and patient/family have the freedom to choose their provider(s); financial interest(s) are disclosed as appropriate. Skylar Hickman RN Case Manager [phone] documented in this encounter Nursing Notes * Analia Patel RN - 05/03/2022 11:33 AM EDT Pt received order for discharge. RN removed 1 PIV without complication and reviewed AVS with patient. Pt denies questions or concerns and is waiting on transportation. Pt leaving floor with all belongings via wheelchair. * Arlene Zepeda RN - 05/02/2022 8:50 AM EDT Pt alert and oriented x4, up eating breakfast at this time. Pt c/o mild nausea, prn nausea med given as prescribed, pt tolerated well. No further complaints at this time. * Ghanshyam Berkowitz RN - 05/02/2022 12:45 AM EDT Patient admitted to . 8035 from ED. Patient alert and oriented x4. VSS/3L NC. C/o intermittent chest pain. Belongings remain with patient. Patient instructed to use call light for assistance; verbalized understanding. Call light and bedside table within reach. Bed low and in locked position. Willcontinue to monitor and assess patient needs. * Kylee Duncan RN - 05/01/2022 3:30 PM EDT Patient is a 47 y/o male who presents with chest pain and elevated troponin from OSH. Patient has ahx of liver transplant and currently waiting for kidney transplant. Patient rates chest pain 03/23. Patient placed on monitor at this time. * Erika Ramirez RN - 05/01/2022 3:11 PM EDT Pt arrives from OSH via [facility] with c/o CP. Pt with recent heart cath. documented in this encounter ED Notes * Judi Montalvo RN - 05/02/2022 12:18 AM EDT Ready and clean bed assigned to 8035. Pt updated on plan of care including transfer and is agreeable. Receiving RN may call [phone] to consult ED RN with questions regarding patients care. Pt is leaving the department in stable condition with all personal items in possession. Ordered medications that have been received from Pharmacy will be tubed to receiving unit. The patient does not have a patient monitor at bedside in the ED. Pt was swabbed for COVID 19 and is considered Low risk. Most recent vitals: BP (!) 194/100 (BP Location: Right leg, Patient Position: Lying) Pulse 76 Temp 98.3 ??F (36.8 ??C) (Oral) Resp 18 SpO2 95% JUDI MONTALVO RN * Alexander Joseph RN - 05/01/2022 11:54 PM EDT Bed: C36U Expected date: 05/01/22 Expected time: 11:10 PM Means of arrival: Comments: B21 * Maye Bianchi RN - 05/01/2022 8:34 PM EDT aware of BP * Kalri Vallecillo RN - 05/01/2022 3:10 PM EDT Bed: [facility] Expected date: Expected time: Means of arrival: Comments: [facility] documented in this encounter Miscellaneous Notes * Plan of Care - Earline Langston RN - 05/02/2022 6:36 PM EDT Hemodialysis Treatment Plan of Care Goal: Patient will achieve appropriate dialysis treatment as evidenced by: Achieved ordered dry weight and/or fluid removal with post weight being within 0.7 kg (L) above or below ordered UF goal. Remained hemodynamically stable within ordered parameters and absence of adverse intradialytic symptoms Achieve effective regulation of serum electrolyte levels and/or drug toxicity as indicated Patient Tolerated Hemodialysis Procedure well Hemodialysis Weights Dry Weight: 130.5 kg (287 lb 11.2 oz) Fluid removal goal: 2-3L Last Treatment Post Weight: 132 kg (291 lb 0.1 oz) Pre Weight: (!) 136.4 kg (300 lb 11.3 oz) Pre Weight Source: Standing Scale Post Weight: 133.7 kg (294 lb 12.1 oz) Post Weight Source: Standing Scale HD Post Treatment Vitals: BP: (!) 173/91 Heart Rate: 76 Temp: 98.4 ??F (36.9 ??C) Resp: 18 Fluid Net Fluid Removal Calculation (Any blood products given during HD treatment are accounted forin net fluid removal and will be recorded in I/O upon scanning) Rinseback Volume (mL): 300 mL Hemodialysis Output (mL): 3089 mL *Net fluid removal (ml): 2789 mL* Delivered Dialysis Prescription: Potassium (mEq/L): 2 Calcium (mEq/L): 2.5 Sodium (mEq/L): 140 Bicarbonate (mEq/L): 35 Blood Flow:350 Dialysate Flow:700 Prescribed Treatment Time (minutes): 210 Duration of Treatment (minutes): 210 minutes HD Access:LAVG HD Access Function: GOOD Post-Treatment procedures: Blood returned Needle Size: 15g Hemodialysis Access Left Upper Arm-Access flow: Good Hemodialysis Access Arteriovenous Fistula Left Forearm-Access flow: Other (Comment) (needls pulled bleeding stopped<10mins) Lidocaine Used: No Access Needle Placement / Position:UP/UP Other / Comments:Tolerated tx well. Was a Crit Line Used for this Treatment? [place] of provider contacted to adjusted target fluid removal? Provider Name or n/a n/a Was an order modification for fluid removal given? Yes Did patient meet fluid removal goal of 0.7 L above or below ordered UF? Yes RN Report Received From:Analia BATES RN Report Given To:Analia BATES Hepatitis Status: Hep B Surface Ab: positive Hep B Core Total Ab: positive Hepatitis B Surface Ag: negative Hemodialysis Meds: Retacrit (Epoetin Zohaib-epbx) None IV Iron (Venofer) None Reason for admission Anemia, unspecified type [D64.9] Chest pain, unspecified type [R07.9] * Plan of Care - Arlene Zepeda RN - 05/02/2022 11:09 AM EDT Problem: Potential for imbalanced nutrition related to metabolic effect of diabetes Goal: Patient's nutritional needs will be met Outcome: Progressing Problem: Knowledge deficit related to self-management of chronic disease Goal: Patient/family/caregiver demonstrates understanding of disease process, treatment plan, medications, and discharge instructions Outcome: Progressing documented in this encounter Plan of Treatment Upcoming Encounters Date Type Department Care Team (Late st Contact Info) Description 07/15/2024 9:00 AM EST Hospital Encounter [facility] Interventional Radiology [address] [place] [address] Herve Carrillo MD [address] [place] [id number] documented as of this encounter Procedures Procedure Name Priority Date/Time Associated Diagnosis Comments XR PORTABLE CHEST Routine 05/03/2022 7:5 6 AM EDT ECG 12-LEAD (MUSE) Routine 05/03/2022 7: 01 AM EDT HIGH SENSITIVITY TROPONIN Routine 05/03/2022 6:42 AM EDT HIGH SENSITIVITY TROPONIN Routine 05/03/2022 3:14 AM EDT RENAL FUNCTION PANEL W/EGFR Routine 05/03/2022 3:14 AM EDT CBC Routine 05/03/2022 3:14 AM EDT MAGNESIUM Routine 05/03/2022 3:14 AM EDT ECG 12-LEAD (MUSE) Routine 05/03/2022 3: 02 AM EDT POC GLU MONITORING DEVICE Routine 05/02/2022 11:52 PM EDT POC GLU MONITORING DEVICE Routine 05/02/2022 7:23 PM EDT POC GLU MONITORING DEVICE Routine 05/02/2022 11:47 AM EDT HEPATITIS B CORE ANTIBODY STAT 05/02/2022 9:35 AM EDT HEPATITIS A IGM STAT 05/02/2022 9:35 AM EDT HEPATITIS C ANTIBODY STAT 05/02/2022 9:35 AM EDT HEPATITIS B SURFACE ANTIBODY, QUANTITATIVE STAT 05/02/2022 9:35 AM EDT HEPATITIS B SURFACE ANTIGEN STAT 05/02/2022 9:35 AM EDT POC GLU MONITORING DEVICE Routine 05/02/2022 8:35 AM EDT RENAL FUNCTION PANEL W/EGFR Routine 05/02/2022 4:49 AM EDT PROTIME-INR Routine 05/02/2022 4:49 AM EDT CBC Routine 05/02/2022 4:49 AM EDT MAGNESIUM Routine 05/02/2022 4:49 AM EDT 2019 NOVEL CORONAVIRUS (COVID-19), [place]ANKLYN-B Routine 05/01/2022 7:40 PM EDT HEPATIC FUNCTION PANEL STAT 05/01/2022 7:40 PM EDT PROTIME-INR STAT 05/01/2022 7:40 PM EDT POC GLU MONITORING DEVICE Routine 05/01/2022 7:33 PM EDT HIGH SENSITIVITY TROPONIN STAT 05/01/2022 5:59 PM EDT XR PORTABLE CHEST STAT 05/01/2022 4:4 5 PM EDT HIGH SENSITIVITY TROPONIN STAT 05/01/2022 4:29 PM EDT DIFFERENTIAL STAT 05/01/2022 4:29 PM EDT CBC STAT 05/01/2022 4:29 PM EDT B NATRIURETIC PEPTIDE STAT 05/01/2022 4:29 PM EDT BASIC METABOLIC PANEL STAT 05/01/2022 4:29 PM EDT ED ECG 12-LEAD (MUSE) STAT 05/01/2022 3:40 PM EDT EKG - SCAN 05/01/2022 EKG - SCAN 05/01/2022 documented in this encounter Results * X-ray Portable Chest (05/03/2022 7:56 AM EDT) Anatomical Region Laterality Modality Chest Radiographic Sobia ging 05/03/2022 7:17 AM EDT Impressions 05/03/2022 9:57 AM EDT IMPRESSION: No acute cardiopulmonary abnormality. Approved by Jack Tomas MD on 05/03/2022 9:55 AM EDT I have personally reviewed the images and I agree with this report. Report Verified by: Jack Patel MD at 05/03/2022 9:57 AM EDT Narrative 05/03/2022 9:57 AM EDT EXAM: XR PORTABLE CHEST INDICATION: Chest pain, unspecified TECHNIQUE: Portable chest x-ray COMPARISON: 05/01/2022 portable chest x-ray FINDINGS: Medical Devices: None. Heart and Mediastinum: Cardiac silhouette borderline enlarged but unchanged. Lungs and Pleura: Lungs are clear with no pleural effusions or evidence of pneumothorax. Bones and soft tissues: No acute abnormalities. Procedure Note Jack Patel MD - 05/03/2022 EXAM: XR PORTABLE CHEST INDICATION: Chest pain, unspecified TECHNIQUE: Portable chest x-ray COMPARISON: 05/01/2022 portable chest x-ray FINDINGS: Medical Devices: None. Heart and Mediastinum: Cardiac silhouette borderline enlarged butunchanged. Lungs and Pleura: Lungs are clear with no pleural effusions or evidence ofpneumothorax. Bones and soft tissues: No acute abnormalities. IMPRESSION: No acute cardiopulmonary abnormality. Approved by Jack Tomas MD on 05/03/2022 9:55 AM EDT I have personally reviewed the images and I agree with this report. Report Verified by: Jack Patel MD at 05/03/2022 9:57 AM EDT us Cecelia Giraldo DO IMG DIAGNOSTIC IMAGING O RDERABLES Final Result * ECG 12 lead (MUSE) (05/03/2022 7:01 AM EDT) 05/03/2022 7:01 AM EDT Narrative MUSE - 05/03/2022 11:44 AM EDT Ventricular Rate: ??75 ??BPM Atrial Rate: ??75 ??BPM P-R Interval: ??218 ??ms QRS Duration: ??114 ??ms QT: ??450 ??ms QTc: ??502 ??ms P [place]: ??70 ??degrees R [place]: ??78 ??degrees T [place]: ??20 ??degrees Diagnosis Line: ??SINUS RHYTHM WITH 1ST DEGREE A-V BLOCK ^ CANNOT RULE OUT INFERIOR INFARCT , AGE UNDETERMINED ^ PROLONGED QT ^ ABNORMAL ECG ^ COMPARED TO THE ECG OF 03-MAY-2022 03:02, ^ THERE IS NO SIGNIFICANT CHANGE ^ Confirmed by Marcelino JERRY MD ([id number]) on 05/03/2022 11:44:28 AM Cecelia Giraldo DO ECG ORDERABLES Final Re sult Performing Organization Address [facility] Co de Phone Number MUSE * (ABNORMAL) High Sensitivity Troponin (05/03/2022 6:42 AM EDT) High Sensitivity Troponin 42(H) 0 - 20 ng/L 05/03/2022 7:20 AM EDT [facility] Serum 05/03/2022 6:42 AM EDT 05/03/2022 6:59 AM EDT Cecelia Giraldo DO LAB BLOOD ORDERABLES Fin al Result Performing Organization Address [facility] Co de Phone Number [facility] [address] * (ABNORMAL) High Sensitivity Troponin (05/03/2022 3:14 AM EDT) High Sensitivity Troponin 55(H) 0 - 20 ng/L 05/03/2022 3:53 AM EDT [facility] Serum 05/03/2022 3:14 AM EDT 05/03/2022 3:17 AM EDT Raquel Hurley DO LAB BLOOD ORDERABLES Final Res ult Performing Organization Address [facility] Co de Phone Number [facility] [address] * (ABNORMAL) Renal Function Panel w/EGFR (05/03/2022 3:14 AM EDT) Sodium 138 133 - 146 mmol/L 05/03/2022 3:51 AM EDT [facility] Potassium 3.9 3.5 - 5.3 mmol/L 05/03/2022 3:51 AM EDT [facility] Chloride 98 98 - 110 mmol/L 05/03/2022 3:51 AM EDT [facility] CO2 28 21 - 33 mmol/L 05/03/2022 3:51 AM EDT [facility] Anion Gap 12 3 - 16 mmol/L 05/03/2022 3:51 AM EDT [facility] BUN 41(H) 7 - 25 mg/dL 05/03/2022 3:51 AM EDT [facility] Creatinine 7.84(H) 0.60 - 1.30 mg/dL 05/03/2022 3:51 AM EDT [facility] Glucose 143(H) 70 - 100 mg/dL 05/03/2022 3:51 AM EDT [facility] Calcium 8.8 8.6 - 10.3 mg/dL 05/03/2022 3:51 AM EDT [facility] Phosphorus 5.0(H) 2.1 - 4.7 mg/dL 05/03/2022 3:51 AM EDT [facility] Albumin 3.9 3.5 - 5.7 g/dL 05/03/2022 3:51 AM EDT [facility] Osmolality, Calculated 299 278 - 305 mOsm/kg 05/03/2022 3:51 AM EDT [facility] EGFR 8 05/03/2022 3:51 AM EDT [facility] Comment:As of 2021, the [...] Greg DC, Felice ND, Kulwinder CA, Dorcas JACKSON, et al. A Unifying Approach for GFR Estimation: Recommendations of the NKF-ASN Task Force on Reassessing the inclusion of Race in Diagnosing Kidney Disease. Am J Kidney Dis. 2020. Plasma 05/03/2022 3:14 AM EDT 05/03/2022 3:17 AM EDT Laurence Charles MD LAB BLOOD ORDERABLES Final Res ult Performing Organization Address City/[facility]/ZIP Co de Phone Number [facility] [address] [place] [address] * Magnesium, AM (05/03/2022 3:14 AM EDT) Magnesium 1.9 1.5 - 2.5 mg/dL 05/03/2022 3:51 AM EDT [facility] Plasma 05/03/2022 3:14 AM EDT 05/03/2022 3:17 AM EDT Laurence Charles MD LAB BLOOD ORDERABLES Final Res ult Performing Organization Address [facility] Co de Phone Number [facility] [address] [place] [address] * (ABNORMAL) CBC, AM (05/03/2022 3:14 AM EDT) WBC 4.0 3.8 - 10.8 10E3/uL 05/03/2022 3:28 AM EDT [facility] RBC 2.57(L) 4.20 - 5.80 10E6/uL 05/03/2022 3:28 AM EDT [facility] Hemoglobin 8.4(L) 13.2 - 17.1 g/dL 05/03/2022 3:28 AM EDT [facility] Hematocrit 24.9(L) 38.5 - 50.0 % 05/03/2022 3:28 AM EDT [facility] MCV 97.0 80.0 - 100.0 fL 05/03/2022 3:28 AM EDT [facility] MCH 32.6 27.0 - 33.0 pg 05/03/2022 3:28 AM EDT [facility] MCHC 33.6 32.0 - 36.0 g/dL 05/03/2022 3:28 AM EDT [facility] RDW 13.3 11.0 - 15.0 % 05/03/2022 3:28 AM EDT [facility] Platelets 216 140 - 400 10E3/uL 05/03/2022 3:28 AM EDT [facility] MPV 6.9(L) 7.5 - 11.5 fL 05/03/2022 3:28 AM EDT [facility] Whole Blood 05/03/2022 3:14 AM EDT 05/03/2022 3:17 AM EDT us Laurence Charles MD LAB BLOOD ORDERABLES Final Res ult Performing Organization Address City/[facility]/ZIP Co de Phone Number [facility] [address] * ECG 12 lead (MUSE) (05/03/2022 3:02 AM EDT) 05/03/2022 3:02 AM EDT Narrative MUSE - 05/03/2022 11:44 AM EDT Ventricular Rate: ??82 ??BPM Atrial Rate: ??82 ??BPM P-R Interval: ??228 ??ms QRS Duration: ??106 ??ms QT: ??422 ??ms QTc: ??493 ??ms P [place]: ??63 ??degrees R [place]: ??89 ??degrees T [place]: ??75 ??degrees Diagnosis Line: ??SINUS RHYTHM WITH 1ST DEGREE A-V BLOCK ^ PROLONGED QT ^ NONSPECIFIC ST CHANGES ^ COMPARED TO THE ECG OF 01-MAY-2022 15:40, ^ ST CHANGES ARE SLIGHTLY MORE PRONOUNCED ^ Confirmed by Marcelino JERRY MD ([id number]) on 05/03/2022 11:44:00 AM us Raquel Hurley DO ECG ORDERABLES Final Result Performing Organization Address City/[facility]/ZIP Co de Phone Number MUSE * (ABNORMAL) POC Glucose Monitoring Device (05/02/2022 11:52 PM EDT) POC Glucose Monitoring Device 172(H) 70 - 100 mg/dL 05/02/2022 11:53 PM EDT [facility] Blood 05/02/2022 11:5 2 PM EDT 05/02/2022 11:53 PM EDT us Meseret Hussein MD POINT OF CARE [place] T ORDERABLES Final Result [facility] [address] [place] [address] * (ABNORMAL) POC Glucose Monitoring Device (05/02/2022 7:23 PM EDT) POC Glucose Monitoring Device 139(H) 70 - 100 mg/dL 05/02/2022 7:24 PM EDT [facility] Blood 05/02/2022 7:23 PM EDT 05/02/2022 7:24 PM EDT us Meseret Hussein MD POINT OF CARE [place] T ORDERABLES Final Result Performing Organization Address [facility]/ZIP Co de Phone Number [facility] [address] [place] [address] * (ABNORMAL) POC Glucose Monitoring Device (05/02/2022 11:47 AM EDT) POC Glucose Monitoring Device 156(H) 70 - 100 mg/dL 05/02/2022 11:48 AM EDT [facility] Blood 05/02/2022 11:4 7 AM EDT 05/02/2022 11:47 AM EDT us Meseret Hussein MD POINT OF CARE [place] T ORDERABLES Final Result Performing Organization Address [facility]/ZIP Co de Phone Number [facility] [address] [place] [address] * (ABNORMAL) Hepatitis B Surface Antibody, Quantitati (05/02/2022 9:35 AM EDT) HBSAB NUMBER >500.00(H ) 0.00 - 9.99 mIU/mL 05/02/2022 1:54 PM EDT [facility] Hep B S Ab Reactive( A) Nonreactive 05/02/2022 1:54 PM EDT [facility] Serum 05/02/2022 9:35 AM EDT 05/02/2022 9:48 AM EDT [facility] - 05/02/2022 1:54 PM EDT Individual is considered immune to HBV infection. Jorge Goldberg MD LAB BLOOD ORDERABLES Final Res ult Performing Organization Address [facility] de Phone Number [facility] [address] [place] [address] * (ABNORMAL) Hepatitis B Core Antibody (05/02/2022 9:35 AM EDT) Hep B Core Total Ab Reactive( A) Nonreactive 05/02/2022 2:04 PM EDT [facility] Comment: Health Department notified in accordance with reportable infectious disease guidelines. Health Department notified in accordance with reportable infectious disease guidelines. Serum 05/02/2022 9:35 AM EDT 05/02/2022 9:48 AM EDT [facility] - 05/02/2022 2:04 PM EDT A reactive final interpretation indicates presumptive evidence of HBV; anti-HBc antibodies were detected in the sample which suggests either on-going or previous HBV infection. Jorge Goldberg MD LAB BLOOD ORDERABLES Final Res ult Performing Organization Address [facility] Co de Phone Number [facility] [address] * Hepatitis A IgM (05/02/2022 9:35 AM EDT) Hep A IgM Nonreactive Nonreactive 05/02/2022 1:41 PM EDT [facility] Serum 05/02/2022 9:35 AM EDT 05/02/2022 9:48 AM EDT [facility] - 05/02/2022 1:41 PM EDT IgM anti-HAV not detected. Does not exclude the possibility of exposure to or infection with HAV. ??Levels of IgM anti-HAV may be below the cut-off in early infection. Jorge Goldberg MD LAB BLOOD ORDERABLES Final Res ult Performing Organization Address [facility]/ZIP Co de Phone Number [facility] [address] * Hepatitis C Antibody (05/02/2022 9:35 AM EDT) HCV Ab Nonreactive Nonreactive 05/02/2022 1:51 PM EDT [facility] Comment:Health Department no tified in accordance with reportable infectious disease guidelines. Serum 05/02/2022 9:35 AM EDT 05/02/2022 9:48 AM EDT [facility] - 05/02/2022 1:51 PM EDT Antibodies to HCV not detected; does not exclude the possibility of exposure to HCV. Jorge Goldberg MD LAB BLOOD ORDERABLES Final Res ult Performing Organization Address [facility] Co de Phone Number [facility] [address] * Hepatitis B surface antigen (05/02/2022 9:35 AM EDT) Hep B Surface Ag Nonreactive Nonreactive 05/02/2022 1:46 PM EDT [facility] Comment:Health Department no tified in accordance with reportable infectious disease guidelines. Serum 05/02/2022 9:35 AM EDT 05/02/2022 9:48 AM EDT [facility] - 05/02/2022 1:46 PM EDT Specimen is considered negative for HBsAg. Jorge Goldberg MD LAB BLOOD ORDERABLES Final Res ult Performing Organization Address [facility]/ZIP Co de Phone Number [facility] [address] [place] [address] * (ABNORMAL) POC Glucose Monitoring Device (05/02/2022 8:35 AM EDT) POC Glucose Monitoring Device 117(H) 70 - 100 mg/dL 05/02/2022 8:36 AM EDT [facility] Blood 05/02/2022 8:35 AM EDT 05/02/2022 8:36 AM EDT Meseret Hussein MD POINT OF CARE [place] T ORDERABLES Final Result Performing Organization Address [facility] de Phone Number [facility] [address] * (ABNORMAL) Protime-INR, AM (05/02/2022 4:49 AM EDT) [facility] Protime 16.1(H) 12.1 - 15.1 seconds 05/02/2022 6:07 AM EDT [facility] INR 1.3(H) 0.9 - 1.1 05/02/2022 6:07 AM EDT [facility] Comment: RECOMMENDED THERAPEUTIC RANGES USING INR : ?Stable oral anticoagulant therapy: ? 2.0 - 3.0 ?Mechanical prosthetic heart valve: ? 2.5 - 3.5 ?Recurrent acute myocardial infarction: ? 2.5 - 3.5 Plasma 05/02/2022 4:49 AM EDT 05/02/2022 5:40 AM EDT Ahsan Winston MD LAB BLOOD ORDERABLES Final Resul t Performing Organization Address [facility] de Phone Number [facility] [address] * Magnesium (05/02/2022 4:49 AM EDT) Magnesium 2.0 1.5 - 2.5 mg/dL 05/02/2022 6:10 AM EDT [facility] Plasma 05/02/2022 4:49 AM EDT 05/02/2022 5:38 AM EDT us Ahsan Winston MD LAB BLOOD ORDERABLES Final Resul t [facility] [address] * (ABNORMAL) Renal Function Panel w/EGFR (05/02/2022 4:49 AM EDT) Sodium 140 133 - 146 mmol/L 05/02/2022 6:10 AM EDT [facility] Potassium 4.7 3.5 - 5.3 mmol/L 05/02/2022 6:10 AM EDT [facility] Chloride 96(L) 98 - 110 mmol/L 05/02/2022 6:10 AM EDT [facility] CO2 29 21 - 33 mmol/L 05/02/2022 6:10 AM EDT [facility] Anion Gap 15 3 - 16 mmol/L 05/02/2022 6:10 AM EDT [facility] BUN 68(H) 7 - 25 mg/dL 05/02/2022 6:10 AM EDT [facility] Creatinine 11.20(H) 0.60 - 1.30 mg/dL 05/02/2022 6:10 AM EDT [facility] Glucose 121(H) 70 - 100 mg/dL 05/02/2022 6:10 AM EDT [facility] Calcium 8.6 8.6 - 10.3 mg/dL 05/02/2022 6:10 AM EDT [facility] Phosphorus 7.7(H) 2.1 - 4.7 mg/dL 05/02/2022 6:10 AM EDT [facility] Albumin 4.2 3.5 - 5.7 g/dL 05/02/2022 6:10 AM EDT [facility] Osmolality, Calculated 311(H) 278 - 305 mOsm/kg 05/02/2022 6:10 AM EDT [facility] EGFR 5 05/02/2022 6:10 AM EDT [facility] Comment:As of 2021, the estimated GFR [...] Disease. Am J Kidney Dis. 2020. Plasma 05/02/2022 4:49 AM EDT 05/02/2022 5:38 AM EDT us Ahsan Winston MD LAB BLOOD ORDERABLES Final Resul t [facility] [address] * (ABNORMAL) CBC, AM (05/02/2022 4:49 AM EDT) WBC 4.6 3.8 - 10.8 10E3/uL 05/02/2022 5:47 AM EDT [facility] RBC 2.74(L) 4.20 - 5.80 10E6/uL 05/02/2022 5:47 AM EDT [facility] Hemoglobin 9.0(L) 13.2 - 17.1 g/dL 05/02/2022 5:47 AM EDT [facility] Hematocrit 27.1(L) 38.5 - 50.0 % 05/02/2022 5:47 AM EDT [facility] MCV 99.1 80.0 - 100.0 fL 05/02/2022 5:47 AM EDT [facility] MCH 32.8 27.0 - 33.0 pg 05/02/2022 5:47 AM EDT [facility] MCHC 33.1 32.0 - 36.0 g/dL 05/02/2022 5:47 AM EDT [facility] RDW 13.6 11.0 - 15.0 % 05/02/2022 5:47 AM EDT [facility] Platelets 228 140 - 400 10E3/uL 05/02/2022 5:47 AM EDT [facility] MPV 7.3(L) 7.5 - 11.5 fL 05/02/2022 5:47 AM EDT [facility] Whole Blood 05/02/2022 4:49 AM EDT 05/02/2022 5:39 AM EDT us Ahsan Winston MD LAB BLOOD ORDERABLES Final Resul t Performing Organization Address [facility] de Phone Number [facility] [address] [place] [address] * (ABNORMAL) Protime-INR (05/01/2022 7:40 PM EDT) Protime 16.5(H) 12.1 - 15.1 seconds 05/01/2022 8:48 PM EDT [facility] INR 1.3(H) 0.9 - 1.1 05/01/2022 8:48 PM EDT [facility] Comment: RECOMMENDED THERAPEUTIC RANGES USING INR : ?Stable oral anticoagulant therapy: ? 2.0 - 3.0 ?Mechanical prosthetic heart valve: ? 2.5 - 3.5 ?Recurrent acute myocardial infarction: ? 2.5 - 3.5 Plasma 05/01/2022 7:40 PM EDT 05/01/2022 8:29 PM EDT us Jelani Middleton MD LAB BLOOD ORDERABLES Final Resul t Performing Organization Address [facility] de Phone Number [facility] [address] * (ABNORMAL) Hepatic Function Panel (05/01/2022 7:40 PM EDT) Total Bilirubin 0.7 0.0 - 1.5 mg/dL 05/01/2022 8:56 PM EDT [facility] Bilirubin, Direct 0.25 0.00 - 0.40 mg/dL 05/01/2022 8:56 PM EDT [facility] AST 11(L) 13 - 39 U/L 05/01/2022 8:56 PM EDT [facility] ALT 6(L) 7 - 52 U/L 05/01/2022 8:56 PM EDT [facility] Alkaline Phosphatase 66 36 - 125 U/L 05/01/2022 8:56 PM EDT [facility] Total Protein 7.8 6.4 - 8.9 g/dL 05/01/2022 8:56 PM EDT [facility] Albumin 4.4 3.5 - 5.7 g/dL 05/01/2022 8:56 PM EDT [facility] Bilirubin, Indirect 0.45 0.00 - 1.10 mg/dL 05/01/2022 8:56 PM EDT [facility] Plasma 05/01/2022 7:40 PM EDT 05/01/2022 8:29 PM EDT Jelani Middleton MD LAB BLOOD ORDERABLES Final Resul t Performing Organization Address [facility] Co de Phone Number [facility] [address] * 2019 Novel Coronavirus (CoVID-19), FRANK[place]N-B (05/01/2022 7:40 PM EDT) First Test Unknown 05/02/2022 4:02 PM EDT [facility] Healthcare employee Unknown 05/02/2022 4:02 PM EDT [facility] Symptomatic Unknown 05/02/2022 4:02 PM EDT [facility] SARS-CoV-2 Not Detected Not Detected 05/02/2022 4:02 PM EDT [facility] Comment: This test is an amplified nucleic acid assay performed by real time PCR. ??This test has been authorized by the FDA under an Emergency Use Authorization (EUA). ?? This test is used for clinical purposes. ??This test has been validated in accordance with the FDA's guidance document Policy for Diagnostic Tests for Coronavirus Disease-2019 during the Public Health Emergency issued on October 28, 2019. ??This test is only authorized for use during the time specified by the declaration that circumstances exist justifying the authorization of the emergency use of in vitro diagnostic tests for detection of SARS-CoV2 virus and/or diagnosis of COVID-19 infection under section 564(B) (1) of the Act, 21 U.S.C. 360bbb-3 (b) (1) applies, unless authorization is terminated or revoked sooner. ??Test results have been sent to the [facility] in accordance with state requirements. ?? For a fact sheet for healthcare providers, see https://www.fda.gov/media/807743/download. ??For a fact sheet for patients, see https://www.fda.gov/media/710504/download. Hospitalized Unknown 05/02/2022 4:02 PM EDT [facility] Test LOINC ordered [id number] 05/02/2022 4:02 PM EDT [facility] In ICU Unknown 05/02/2022 4:02 PM EDT [facility] Device identifier [employer] (DIANA)_ ho [id number] 05/02/2022 4:02 PM EDT [facility] Congregate Care Resident Unknown 05/02/2022 4:02 PM EDT [facility] Unknown 05/02/2022 4:02 PM EDT [facility] Nasopharyngeal Swab NASOPHARYNGEAL STRUCTURE / Unknown 05/01/2022 7:40 PM EDT 05/01/2022 8:30 PM EDT Narrative [facility] - 05/02/2022 4:02 PM EDT Does the patient have symptoms of Covid-19 (eg. Fever, dyspnea, cough, loss of smell)?->No Does the patient urgently (in <24 hours) require a surgery, invasive procedure, or cardiac stress test?->No Is the patient being admitted to labor and delivery in active labor?->No Does the patient fit any of these categories? (select all that apply)->None of the above Jelani Middleton MD BODY FLUIDS AND STOOLS ORDERABLE S Final Result Performing Organization Address [facility] Co de Phone Number [facility] [address] [place] [address] * (ABNORMAL) POC Glucose Monitoring Device (05/01/2022 7:33 PM EDT) POC Glucose Monitoring Device 102(H) 70 - 100 mg/dL 05/01/2022 7:33 PM EDT [facility] Blood 05/01/2022 7:33 PM EDT 05/01/2022 7:33 PM EDT us Attending Provider Unknown POINT OF CARE TEST OR DERABLES Final Result Performing Organization Address [facility] Co de Phone Number [facility] [address] [place] [address] * (ABNORMAL) High Sensitivity Troponin (60min) (05/01/2022 5:59 PM EDT) High Sensitivity Troponin 50(H) 0 - 20 ng/L 05/01/2022 6:40 PM EDT [facility] Serum 05/01/2022 5:59 PM EDT 05/01/2022 6:06 PM EDT Narrative [facility] - 05/01/2022 6:40 PM EDT Please draw 60min after time that first troponin is drawn. Jelani Middleton MD LAB BLOOD ORDERABLES Final Resul t Performing Organization Address [facility] Co de Phone Number [facility] [address] [place] [address] * X-ray Portable Chest (05/01/2022 4:45 PM EDT) Anatomical Region Laterality Modality Chest Radiographic Sobia ging 05/01/2022 3:35 PM EDT Impressions 05/01/2022 4:54 PM EDT IMPRESSION: Stable appearance of the chest with no acute cardiopulmonary abnormality. Report Verified by: Chicho Gamez MD at 05/01/2022 4:54 PM EDT Narrative 05/01/2022 4:54 PM EDT EXAM: XR PORTABLE CHEST INDICATION: Chest pain, unspecified TECHNIQUE: 1 view of the chest. COMPARISON: 03/20/2022 FINDINGS: Medical Devices: None. Heart and Mediastinum: Unchanged. Lungs and Pleura: Lungs are clear. Bones and soft tissues: No acute abnormalities. Procedure Note Chicho Gamez MD - 05/01/2022 EXAM: XR PORTABLE CHEST INDICATION: Chest pain, unspecified TECHNIQUE: 1 view of the chest. COMPARISON: 03/20/2022 FINDINGS: Medical Devices: None. Heart and Mediastinum: Unchanged. Lungs and Pleura: Lungs are clear. Bones and soft tissues: No acute abnormalities. IMPRESSION: Stable appearance of the chest with no acute cardiopulmonaryabnormality. Report Verified by: Chicho Gamez MD at 05/01/2022 4:54 PM EDT Jelani Middleton MD IMG DIAGNOSTIC IMAGING ORDERABLE S Final Result * Differential (05/01/2022 4:29 PM EDT) Neutrophils Relative 66.1 40.0 - 80.0 % 05/01/2022 4:43 PM EDT [facility] Lymphocytes Relative 20.3 15.0 - 45.0 % 05/01/2022 4:43 PM EDT [facility] Monocytes Relative 9.8 0.0 - 12.0 % 05/01/2022 4:43 PM EDT [facility] Eosinophils Relative 3.4 0.0 - 8.0 % 05/01/2022 4:43 PM EDT [facility] Basophils Relative 0.4 0.0 - 1.0 % 05/01/2022 4:43 PM EDT [facility] nRBC 0 0 - 0 /100 WBC 05/01/2022 4:43 PM EDT [facility] Neutrophils Absolute 3,702 1,500 - 7,800 /uL 05/01/2022 4:43 PM EDT [facility] Lymphocytes Absolute 1,137 850 - 3,900 /uL 05/01/2022 4:43 PM EDT [facility] Monocytes Absolute 549 200 - 950 /uL 05/01/2022 4:43 PM EDT [facility] Eosinophils Absolute 190 15 - 500 /uL 05/01/2022 4:43 PM EDT [facility] Basophils Absolute 22 0 - 200 /uL 05/01/2022 4:43 PM EDT [facility] Whole Blood 05/01/2022 4:29 PM EDT 05/01/2022 4:35 PM EDT us Jelani Middleton MD LAB BLOOD ORDERABLES Final Resul t [facility] [address] * (ABNORMAL) CBC (05/01/2022 4:29 PM EDT) WBC 5.6 3.8 - 10.8 10E3/uL 05/01/2022 4:43 PM EDT [facility] RBC 2.32(L) 4.20 - 5.80 10E6/uL 05/01/2022 4:43 PM EDT [facility] Hemoglobin 7.7(L) 13.2 - 17.1 g/dL 05/01/2022 4:43 PM EDT [facility] Hematocrit 22.7(L) 38.5 - 50.0 % 05/01/2022 4:43 PM EDT [facility] MCV 97.8 80.0 - 100.0 fL 05/01/2022 4:43 PM EDT [facility] MCH 33.1(H) 27.0 - 33.0 pg 05/01/2022 4:43 PM EDT [facility] MCHC 33.9 32.0 - 36.0 g/dL 05/01/2022 4:43 PM EDT [facility] RDW 13.5 11.0 - 15.0 % 05/01/2022 4:43 PM EDT [facility] Platelets 248 140 - 400 10E3/uL 05/01/2022 4:43 PM EDT [facility] MPV 7.0(L) 7.5 - 11.5 fL 05/01/2022 4:43 PM EDT [facility] Whole Blood 05/01/2022 4:29 PM EDT 05/01/2022 4:35 PM EDT us Jelani Middleton MD LAB BLOOD ORDERABLES Final Resul t [facility] [address] * (ABNORMAL) Basic metabolic panel (05/01/2022 4:29 PM EDT) Sodium 140 133 - 146 mmol/L 05/01/2022 5:05 PM EDT [facility] Potassium 4.3 3.5 - 5.3 mmol/L 05/01/2022 5:05 PM EDT [facility] Chloride 98 98 - 110 mmol/L 05/01/2022 5:05 PM EDT [facility] CO2 26 21 - 33 mmol/L 05/01/2022 5:05 PM EDT [facility] Anion Gap 16 3 - 16 mmol/L 05/01/2022 5:05 PM EDT [facility] BUN 60(H) 7 - 25 mg/dL 05/01/2022 5:05 PM EDT [facility] Creatinine 10.32(H) 0.60 - 1.30 mg/dL 05/01/2022 5:05 PM EDT [facility] Glucose 95 70 - 100 mg/dL 05/01/2022 5:05 PM EDT [facility] Calcium 8.6 8.6 - 10.3 mg/dL 05/01/2022 5:05 PM EDT [facility] Osmolality, Calculated 307(H) 278 - 305 mOsm/kg 05/01/2022 5:05 PM EDT [facility] EGFR 6 05/01/2022 5:05 PM EDT [facility] Comment:As of 2021, the [...] as >90mL/min/1.73m2. Reference: Simone C, Delbert M, Grge DC, Felice ND, Kulwinder [place], Dorcas [place], et al. A Unifying Approach for GFR Estimation: Recommendations of the NKF-ASN Task Force on Reassessing the inclusion of Race in Diagnosing Kidney Disease. Am J Kidney Dis. 2020. Plasma 05/01/2022 4:29 PM EDT 05/01/2022 4:35 PM EDT Jelani Middleton MD LAB BLOOD ORDERABLES Final Resul t Performing Organization Address [facility] Co de Phone Number [address] * (ABNORMAL) BNP (05/01/2022 4:29 PM EDT) BNP 597(H) 0 - 100 pg/mL 05/01/2022 5:11 PM EDT [facility] Comment: BNP may be increased in the presence of sacubitril/valsartan (Entresto). Please interpret accordingly. Plasma 05/01/2022 4:29 PM EDT 05/01/2022 4:34 PM EDT Narrative [facility] - 05/01/2022 5:11 PM EDT The presence of high concentrations of biotin may cause falsely lowered BNP results. Biotin interference may be seen if an individual is taking >5 mg biotin per day. Interpret BNP results in the context of the patient's clinical presentation. us Jelani Middleton MD LAB BLOOD ORDERABLES Final Resul t Performing Organization Address [facility] Co de Phone Number [address] * (ABNORMAL) High Sensitivity Troponin (05/01/2022 4:29 PM EDT) High Sensitivity Troponin 54(H) 0 - 20 ng/L 05/01/2022 5:06 PM EDT [facility] Serum 05/01/2022 4:29 PM EDT 05/01/2022 4:35 PM EDT us Jelani Middleton MD LAB BLOOD ORDERABLES Final Resul t [facility] [address] [id number], [facility] * ED ECG 12-Lead (MUSE) (05/01/2022 3:40 PM EDT) 05/01/2022 3:40 PM EDT Narrative MUSE - 05/02/2022 8:45 AM EDT Ventricular Rate: ??76 ??BPM Atrial Rate: ??76 ??BPM P-R Interval: ??230 ??ms QRS Duration: ??108 ??ms QT: ??456 ??ms QTc: ??513 ??ms P [place]: ??27 ??degrees R [place]: ??70 ??degrees T [place]: ??46 ??degrees Diagnosis Line: ??INTERPRETATION NOT AVAILABLE--ECG READ IN ER ^ Confirmed by PHYSICIAN, ER ([id number]), advertising editor Connie ANAND ([id number]) on 05/02/2022 8:45:28 AM us Daren Lawson MD ECG ORDERABLES Final Result MUSE * EKG - SCAN (05/01/2022) us Scanning [place] SCAN DOCS - NO RESULTS Final Res ult * EKG - SCAN (05/01/2022) us Scanning [place] SCAN DOCS - NO RESULTS Final Res ult documented in this encounter Visit Diagnoses Diagnosis Chest pain, unspecified type- Primary Anemia, unspecified type ESRD (end stage renal disease) ([facility]) End stage renal disease documented in this encounter Administered Medications Inactive Administered Medications - up to 3 most recent administrations Medication Order MAR Action Action Date Dose Rate Site acetaminophen (TYLENOL) tablet 650 mg 650 mg, Oral, Once, On 05/02/22 at 0530, For 1 dose, Maximum dose of acetaminophen is 4000 mg (4 grams) from all sources in 24 hours. Given 05/02/2022 5:56 AM EDT 650 mg acetaminophen (TYLENOL) tablet 650 mg 650 mg, Oral, Once, On Mon05/03/22 at 0300, For 1 dose, Maximum dose of acetaminophen is 4000 mg (4 grams) from all sources in 24 hours. Given 05/03/2022 2:54 AM EDT 650 mg albuterol (PROVENTIL) 90 mcg/actuation inhaler 2 puff 2 puff, Inhalation, RT every 8 hours PRN, Wheezing, Shortness of Breath, Starting on Mon05/03/22 at 0656, SHAKE WELL carBAMazepine (TEGRETOL) tablet 200 mg 200 mg, Oral, 2 times daily, First dose on Mon05/01/22 at 2154 Given 05/03/2022 8:39 AM EDT 200 mg Given 05/02/2022 9:27 PM EDT 200 mg Given 05/02/2022 8:36 AM EDT 200 mg carvediloL (COREG) tablet 12.5 mg 12.5 mg, Oral, 2 times daily, First dose on Mon05/02/22 at 1400 Given 05/03/2022 8:39 AM EDT 12.5 mg Given 05/02/2022 9:26 PM EDT 12.5 mg cycloSPORINE modified (NEORAL/GENGRAF) capsule 100 mg 100 mg, Oral, 2 times daily, First dose on Mon05/01/22 at 2155, LEVEL 2 HAZARDOUS MEDICATION Given 05/03/2022 8:39 AM EDT 100 mg Given 05/02/2022 9:26 PM EDT 100 mg Given 05/02/2022 8:37 AM EDT 100 mg folic acid (FOLVITE) tablet 1 mg 1 mg, Oral, Daily, First dose on Mon05/02/22 at 0900 Given 05/03/2022 8:39 AM EDT 1 mg Given 05/02/2022 8:36 AM EDT 1 mg heparin (porcine) injection 5,000 Units 5,000 Units, Subcutaneous, Every 8 hours scheduled (3 times per day), First dose on Mon05/02/22 at 1400 hydrALAZINE (APRESOLINE) tablet 100 mg 100 mg, Oral, Once, On Mon05/01/22 at 2037, For 1 dose Given 05/01/2022 10:13 PM EDT 100 mg hydrALAZINE (APRESOLINE) tablet 50 mg 50 mg, Oral, Every 8 hours, First dose on Mon05/02/22 at 0800 Given 05/03/2022 11:16 AM EDT 50 mg Given 05/03/2022 2:41 AM EDT 50 mg Given 05/02/2022 7:15 PM EDT 50 mg HYDROmorphone (DILAUDID) injection Syrg 1 mg 1 mg, Intravenous, Once, On Mon05/01/22 at 1653, For 1 dose Given 05/01/2022 5:12 PM EDT 1 mg HYDROmorphone (DILAUDID) injection Syrg 1 mg 1 mg, Intravenous, Once, On Mon05/01/22 at 1926, For 1 dose Given 05/01/2022 7:40 PM EDT 1 mg insulin lispro (humaLOG) injection 0-4 Units 0-4 Units, Subcutaneous, At Bedtime (2100), First dose on Mon05/01/22 at 2255, HIGH ALERT MEDICATION Glucose must be checked at 03:00 if bedtime correction is given. Onset of action is rapid. Give dose 5-10 minutes before meal. Have meal at bedside. insulin lispro (humaLOG) injection 0-5 Units 0-5 Units, Subcutaneous, 3 times daily before meals, First dose on Mon05/02/22 at 0900, HIGH ALERT MEDICATION Given 05/02/2022 12:27 PM EDT 1 Units Righ t Arm isosorbide dinitrate (ISORDIL) tablet 10 mg 10 mg, Oral, 2 times daily, First dose on Mon05/02/22 at 0900 Given 05/03/2022 8:39 AM EDT 10 mg Given 05/02/2022 9:27 PM EDT 10 mg Given 05/02/2022 8:36 AM EDT 10 mg lidocaine (LIDODERM) 5 % 1 patch 1 patch, Transdermal, Every 24 hours, First dose on Mon05/01/22 at 2308, LEAVE PATCH ON FOR 12 HOURS,THEN REMOVE FOR 12 HOURS. Patch Applied 05/02/2022 8:36 AM EDT 1 patch Other methocarbamoL (ROBAXIN) tablet 500 mg 500 mg, Oral, 4 times daily before meals & nightly, First dose on Mon05/01/22 at 2159 Given 05/03/2022 6:32 AM EDT 500 mg Given 05/02/2022 9:27 PM EDT 500 mg Given 05/02/2022 10:35 AM EDT 500 mg mycophenolate (CELLCEPT) capsule 250 mg 250 mg, Oral, 2 times daily, First dose on Mon05/01/22 at 2159, LEVEL 2 HAZARDOUS MEDICATION Given 05/03/2022 8:39 AM EDT 250 mg Given 05/02/2022 9:26 PM EDT 250 mg Given 05/02/2022 8:37 AM EDT 250 mg NIFEdipine (PROCARDIA-XL) 24 hr tablet 90 mg 90 mg, Oral, 2 times daily, First dose on Mon05/02/22 at 0900, DO NOT CRUSH Given 05/03/2022 8:39 AM EDT 90 mg Given 05/02/2022 9:31 PM EDT 90 mg Given 05/02/2022 8:36 AM EDT 90 mg pantoprazole (PROTONIX) injection 40 mg 40 mg, Intravenous, Two times a day, First dose on Mon05/02/22 at 0900, Dilute each 40 mg vial with 10 mL of Normal Saline Given 05/03/2022 6:32 AM EDT 40 mg Given 05/02/2022 7:15 PM EDT 40 mg Given 05/02/2022 10:35 AM EDT 40 mg pantoprazole (PROTONIX) injection 80 mg 80 mg, Intravenous, Once, On Mon05/01/22 at 2121, For 1 dose, Dilute each 40 mg vial with 10 mL of Normal Saline Given 05/01/2022 10:14 PM EDT 80 mg proCHLORPERazine (COMPAZINE) tablet 10 mg 10 mg, Oral, Once, On Mon05/03/22 at 0630, For 1 dose Given 05/03/2022 6:32 AM EDT 10 mg proMETHazine (PHENERGAN) injection 12.5 mg 12.5 mg, Intravenous, Once, On Mon05/01/22 at 2053, For 1 dose, IRRITANT IV Push administration REQUIRES dilution with 10 mL Saline Given 05/01/2022 10:13 PM EDT 12.5 mg proMETHazine (PHENERGAN) tablet 12.5 mg 12.5 mg, Oral, Every 6 hours PRN, Nausea, Starting on Mon05/01/22 at 2307 Given 05/02/2022 8:36 AM EDT 12.5 mg sevelamer carbonate (RENVELA) tablet 1,600 mg 1,600 mg, Oral, 3 times daily with meals, First dose on Mon05/02/22 at 0800, DO NOT ADMINISTER VIA FEEDING TUBE Given 05/02/2022 7:15 PM EDT 1,600 mg Given 05/02/2022 12:24 PM EDT 1,600 mg Given 05/02/2022 8:36 AM EDT 1,600 mg documented in this encounter Active and Recently Administered Medications Times are shown in EDT. Scheduled Medication Order 05/01/2022 05/02/2022 05/03/2022 acetaminophen (TYLENOL) tablet 650 mg (COMPLETED) 650 mg, Oral, Once, On Mon05/02/22 at 0530, For 1 dose, Maximum dose of acetaminophen is 4000 mg (4 grams) from all sources in 24 hours. 0556 (Given - Provider: Ghanshyam Berkowitz RN) acetaminophen (TYLENOL) tablet 650 mg (COMPLETED) 650 mg, Oral, Once, On Mon05/03/22 at 0300, For 1 dose, Maximum dose of acetaminophen is 4000 mg (4 grams) from all sources in 24 hours. 0254 (Given - Provider: Urmila Pham RN) carBAMazepine (TEGRETOL) tablet 200 mg 200 mg, Oral, 2 times daily, First dose on Mon05/01/22 at 2154 2213 (Given - Provider: Marilin Bailey RN) 0836 (Given - Provider: Arlene Zepeda RN)2126 (Given - Provider: Urmila Pham RN) 0839 (Given - Provider: Analia Patel, JANA) carvediloL (COREG) tablet 12.5 mg 12.5 mg, Oral, 2 times daily, First dose on Mon05/02/22 at 1400 1417 (Not Given - Provider: Analia Patel, JANA - Reason: Other - Comment: Pt in dialysis)2125 (Given - Provider: Urmila Pham RN) 0839 (Given - Provider: Analia Patel RN) cycloSPORINE modified (NEORAL/GENGRAF) capsule 100 mg 100 mg, Oral, 2 times daily, First dose on Mon05/01/22 at 2155, LEVEL 2 HAZARDOUS MEDICATION 2214 (Given - Provider: Marilin Bailey RN) 0837 (Given - Provider: Arlene Zepeda RN)212 (Given - Provider: Urmila Pham RN) 0839 (Given - Provider: Analia Patel RN) folic acid (FOLVITE) tablet 1 mg 1 mg, Oral, Daily, First dose on Mon05/02/22 at 0900 0836 (Given - Provider: Arlene Zepeda RN) 0839 (Given - Provider: Analia Patel RN) heparin (porcine) injection 5,000 Units 5,000 Units, Subcutaneous, Every 8 hours scheduled (3 times per day), First dose on Mon05/02/22 at 1400 1915 (Not Given - Provider: Analia Patel RN - Reason: Patient/family refused - Comment: re timed, pt in dialysis)2126 (Not Given - Provider: Urmila Pham RN - Reason: Patient/family refused) 0633 (Not Given - Provider: Urmila Pham RN - Reason: Patient/family refused) hydrALAZINE (APRESOLINE) tablet 100 mg (COMPLETED) 100 mg, Oral, Once, On Mon05/01/22 at 2037, For 1 dose 2213 (Given - Provider: Marilin Bailey RN) hydrALAZINE (APRESOLINE) tablet 50 mg 50 mg, Oral, Every 8 hours, First dose on Mon05/02/22 at 0800 0836 (Given - Provider: Arlene Zepeda RN)1915 (Given - Provider: Analia Patel, JANA) 0241 (Given - Provider: Urmila Pham RN)1116 (Given - Provider: Analia Patel RN) HYDROmorphone (DILAUDID) injection Syrg 1 mg (COMPLETED) 1 mg, Intravenous, Once, On Mon05/01/22 at 1653, For 1 dose 1712 (Given - Provider: Kylee Duncan RN) HYDROmorphone (DILAUDID) injection Syrg 1 mg (COMPLETED) 1 mg, Intravenous, Once, On Mon05/01/22 at 1926, For 1 dose 1940 (Given - Provider: Marilin Bailey RN) insulin lispro (humaLOG) injection 0-4 Units(Linked Group 1) 0-4 Units, Subcutaneous, At Bedtime (2100), First dose on Mon05/01/22 at 2255, HIGH ALERT MEDICATION Glucose must be checked at 03:00 if bedtime correction is given. Onset of action is rapid. Give dose 5-10 minutes before meal. Have meal at bedside. 2226 (Not Given - Provider: Maye Bianchi RN - Reason: Order parameters not met) 2352 (Not Given - Provider: Urmila Pham RN - Reason: Order parameters not met) insulin lispro (humaLOG) injection 0-5 Units 0-5 Units, Subcutaneous, 3 times daily before meals, First dose on Mon05/02/22 at 0900, HIGH ALERT MEDICATION 0838 (Not Given - Provider: Arlene Zepeda RN - Reason: Order parameters not met)1227 (Given - Provider: Analia Patel RN)1923 (Not Given - Provider: Analia Patel RN - Reason: Order parameters not met) 1116 (Not Given - Provider: Analia Patel RN - Reason: Order parameters not met) isosorbide dinitrate (ISORDIL) tablet 10 mg 10 mg, Oral, 2 times daily, First dose on Mon05/02/22 at 0900 0836 (Given - Provider: Arlene Zepeda RN)2127 (Given - Provider: Urmila Pham RN) 0839 (Given - Provider: Analia Patel RN) lidocaine (LIDODERM) 5 % 1 patch 1 patch, Transdermal, Every 24 hours, First dose on Mon05/01/22 at 2308, LEAVE PATCH ON FOR 12 HOURS,THEN REMOVE FOR 12 HOURS. 0836 (Patch Applied - Provider: Arlene Zepeda RN)213 (Patch Removed - Provider: Urmila Pham RN)2353 (Not Given - Provider: Urmila Pham RN - Reason: Patient/family refused) methocarbamoL (ROBAXIN) tablet 500 mg 500 mg, Oral, 4 times daily before meals & nightly, First dose on Mon05/01/22 at 2159 2213 (Given - Provider: Marilin Bailey RN) 0556 (Given - Provider: Ghanshyam Berkowitz RN)1035 (Given - Provider: Arlene Zepeda RN)183 (Not Given - Provider: Analia Patel RN - Reason: Order parameters not met)2126 (Given - Provider: Urmila Pham RN) 0632 (Given - Provider: Urmila Pham RN)1130 (Due) mycophenolate (CELLCEPT) capsule 250 mg 250 mg, Oral, 2 times daily, First dose on Mon05/01/22 at 2159, LEVEL 2 HAZARDOUS MEDICATION 2213 (Given - Provider: Marilin Bailey RN) 0837 (Given - Provider: Arlene Zepeda RN)2125 (Given - Provider: Urmila Pham RN) 0839 (Given - Provider: Analia Patel RN) NIFEdipine (PROCARDIA-XL) 24 hr tablet 90 mg 90 mg, Oral, 2 times daily, First dose on Mon05/02/22 at 0900, DO NOT CRUSH 0836 (Given - Provider: Arlene Zepeda RN)2130 (Given - Provider: Urmila Pham RN) 0839 (Given - Provider: Analia Patel RN) pantoprazole (PROTONIX) injection 40 mg 40 mg, Intravenous, Two times a day, First dose on Mon05/02/22 at 0900, Dilute each 40 mg vial with 10 mL of Normal Saline 1035 (Given - Provider: Arlene Zepeda RN)191 (Given - Provider: Analia Patel RN) 0632 (Given - Provider: Urmila Pham RN) pantoprazole (PROTONIX) injection 80 mg (COMPLETED) 80 mg, Intravenous, Once, On Mon05/01/22 at 2121, For 1 dose, Dilute each 40 mg vial with 10 mL of Normal Saline 2214 (Given - Provider: Marilin Bailey RN) proCHLORPERazine (COMPAZINE) tablet 10 mg (COMPLETED) 10 mg, Oral, Once, On Mon05/03/22 at 0630, For 1 dose 0632 (Given - Provider: Urmila Pham RN) proMETHazine (PHENERGAN) injection 12.5 mg (COMPLETED) 12.5 mg, Intravenous, Once, On Mon05/01/22 at 2053, For 1 dose, IRRITANT IV Push administration REQUIRES dilution with 10 mL Saline 2213 (Given - Provider: Marilin Bailey RN) sevelamer carbonate (RENVELA) tablet 1,600 mg 1,600 mg, Oral, 3 times daily with meals, First dose on Mon05/02/22 at 0800, DO NOT ADMINISTER VIA FEEDING TUBE 0836 (Given - Provider: Arlene Zepeda RN)1224 (Given - Provider: Analia Patel, JANA)1915 (Given - Provider: Analia Patel, JANA) 1017 (Not Given - Provider: Analia Patel RN - Reason: Order parameters not met - Comment: omnicell out) PRN Medication Order 05/01/2022 05/02/2022 05/03/2022 albuterol (PROVENTIL) 90 mcg/actuation inhaler 2 puff 2 puff, Inhalation, RT every 8 hours PRN, Wheezing, Shortness of Breath, Starting on Mon05/03/22 at 0656, SHAKE WELL proMETHazine (PHENERGAN) tablet 12.5 mg 12.5 mg, Oral, Every 6 hours PRN, Nausea, Starting on Mon05/01/22 at 2307 0836 (Given - Provider: Yuridia Zepeda RN) Linked Groups Order Group 1: insulin lispro (humaLOG) injection 0-4 UnitsJump to med 0-4 Units, Subcutaneous, At Bedtime (2100), First dose on Mon05/01/22 at 2255, HIGH ALERT MEDICATION Glucose must be checked at 03:00 if bedtime correction is given. Onset of action is rapid. Give dose 5-10 minutes before meal. Have meal at bedside. And Fingerstick Glucose, Overnight (If correction given) (CANCELED) STAT, Daily at 0300 PRN, Starting on Mon05/02/22 at 0300, Until Specified documented in this encounter Additional Health Concerns Infection Onset Date Last Indicated Resolved Time Rule Out COVID-05/01/2022 05/01/2022 05/02/2022 4:02 PM EDT Assessment Noted Time PHQ-9 Depression Total Score: 0 12/06/19 3:00 PM EDT documented as of this encounter Care Teams Ultrasonic Tester Relationship Specialty Start Date End Date Edgar Fournier MD [address] [place] [address] [place] [address] PCP - General 12/22/21 Maile Valles, RN Txp Post Coordinator Transplant Hepatology 11/07/17 Jack Ordoñez MD [address] [place] [id number] Consulting Physician Transplant Hepatology 01/05/18 Estephania Sharif, PharmD Pharmacist Pharmacist 11/11/19 documented as of this encounter
--- OUTSIDE RECORDS SUMMARY | 2024-07-12 12:29 | XMS_ITS | Encounter Summary ---
Author Organization [facility] Address [address] [place] [address] Care Team Providers Care Traditional Chinese Herbalist Name Role Phone Maile Valles RN Unavailable Unavail able Jack Ordoñez MD Unavailable [phone] Estephania Sharif PharmD Unavailable Christine Edgar Tolentino MD Primary Care Provider [phone] Source Comments This information has been disclosed [...] release of HIV test results or diagnoses. [id number] Health Encounter Details Date Type Department Care Team (Late st Contact Info) Description 04/07/2022 Abstract [facility] [id number] [place] [address] Niurka Wood MA Social History Tobacco Use Types Packs/Day [...] st Contact Info) Description 07/15/2024 9:00 AM [facility] Hospital Encounter [facility] Interventional Radiology [address] [place] [address] Herve Carrillo MD [address] [facility] [address] [place] [address] documented as of this encounter Procedures Procedure Name Priority Date/Time Associated Diagnosis Comments COLONOSCOPY Routine 03/23/2022 documented in this encounter Results * COLONOSCOPY (03/23/2022) Colonoscopy Stool in descending colon. Non bleeding interal hemorrhoids. Repeat colo per MD us Historical Provider MD HEALTH MAINTENANCE Final Result documented in this encounter Visit Diagnoses Not on filedocumented in this encounter Additional Health Concerns Assessment Noted Time PHQ-9 Depression Total Score: 0 12/06/19 18 3:00 PM EDT documented as of this encounter Care Teams Traditional Chinese Herbalist Relationship Specialty Start Date End Date Edgar Fournier MD [address] [place] [address] [place] [address] PCP - General 12/22/21 Maile Valles, RN Txp Post Coordinator Transplant Hepatology 11/07/17 Jack Ordoñez MD [address] [place] [phone] Consulting Physician Transplant Hepatology 01/05/18 Estephania Sharif, DarrianD Pharmacist Pharmacist 11/11/19 documented as of this encounter
--- OUTSIDE RECORDS SUMMARY | 2024-07-12 12:29 | XMS_ITS | Encounter Summary ---
Author Organization [facility] Address [facility] [place] [address] Care Team Providers Care Core Shaper Top Name Role Phone Maile Valles RN Unavailable Unavail able Jack Ordoñez MD Unavailable [phone] Estephania Sharif PharmD Unavailable Christine Edgar Tolentino MD Primary Care Provider [phone] Source Comments This information has been disclosed [...] release of HIV test results or diagnoses. [id number] Encounter Details Date Type Department Care Team (Latest Contact Info) Description 04/26/2022 Travel Social History Tobacco Use Types Packs/Day [...] 07/15/2024 9:00 AM EST Hospital Encounter [facility] Interventional Radiology [address] [place] [phone] Herve Carrillo MD [address] [facility] [address] [place] [address] documented as of this encounter Visit Diagnoses Not on filedocumented in this encounter Additional Health Concerns Assessment Noted Time PHQ-9 Depression Total Score: 0 12/06/19 18 3:00 PM EDT documented as of this encounter Care Teams Core Shaper Top Relationship Specialty Start Date End Date Edgar Fournier MD [address] [place] [phone] PCP - General 12/22/21 Maile Valles, RN Txp Post Coordinator Transplant Hepatology 11/07/17 Jack Ordoñez MD [address] [place] [phone] Consulting Physician Transplant Hepatology 01/05/18 Estephania Sharif, DarrianD Pharmacist Pharmacist 11/11/19 documented as of this encounter
--- OUTSIDE RECORDS SUMMARY | 2024-07-12 12:29 | XMS_ITS | Encounter Summary ---
Author Organization [facility] Address [address] [place] [address] Care Team Providers Care Assistant Teacher Primary Name Role Phone Maile Valles RN Unavailable Unavail able Jack Ordoñez MD Unavailable [phone] Estephania Sharif PharmD Unavailable Christine Edgar Tolentino MD Primary Care Provider [phone] Source Comments This information has been disclosed [...] release of HIV test results or diagnoses. [id number] Health Encounter Details Date Type Department Care Team (Late st Contact Info) Description 04/22/2022 Telephone [facility] Cardiac Stress Lab [address] [place] [address] Melody Rose RN Social History Tobacco Use Types Packs/Day [...] encounter Miscellaneous Notes * Telephone Encounter - Melody Rose RN - 04/22/2022 1:13 PM EDT Patient is scheduled for a SOCRATES on Monday at 1 p.m. here at . He is also having a cath on Monday at 2 p.m. which he is aware of. He will do dialysis on Monday am. In [place], [place], then come straight to the hospital for his cath. He is not sure if they will keep him overnight, but he is bringing clothes just in case. If he goes home Monday, and comes back Monday, he is aware to be here at noon, and to be NPO 6 hrs before the procedure. His will be with him to take him home. documented in this encounter Plan of Treatment Upcoming Encounters Date Type Department Care Team (Late st Contact Info) Description 07/15/2024 9:00 AM EST Hospital Encounter [facility] Interventional Radiology [address] [place] [phone] Herve Carrillo MD [address] [place] [phone] documented as of this encounter Visit Diagnoses Not on filedocumented in this encounter Additional Health Concerns Assessment Noted Time PHQ-9 Depression Total Score: 0 12/06/19 18 3:00 PM EDT documented as of this encounter Care Teams Assistant Teacher Primary Relationship Specialty Start Date End Date Edgar Fourneir MD [address] [place] [address] [place] [address] PCP - General 12/22/21 Maile Valles, JANA Txp Post Coordinator Transplant Hepatology 11/07/17 Jack Ordoñez MD [address] [place] [phone] Consulting Physician Transplant Hepatology 01/05/18 Estephania Sharif, DarrianD Pharmacist Pharmacist 11/11/19 documented as of this encounter
--- OUTSIDE RECORDS SUMMARY | 2024-07-12 12:29 | XMS_ITS | Encounter Summary ---
Author Organization [facility] Address [facility] [place] [address] Care Team Providers Care Roll Reclaimer Name Role Phone Maile Valles RN Unavailable Unavail able Jack Ordoñez MD Unavailable [phone] Estephania Sharif PharmD Unavailable Christine Edgar Tolentino MD Primary Care Provider [phone] Source Comments This information has been disclosed [...] release of HIV test results or diagnoses. [id number] Encounter Details Date Type Department Care Team (Latest Contact Info) Description 05/01/2022 Travel Social History Tobacco Use Types Packs/Day [...] 9:00 AM EST Hospital Encounter [facility] Interventional Radiology [address] [place] [phone] Herve Carrillo MD [address] [facility] [address] [place] [phone] documented as of this encounter Visit Diagnoses Not on filedocumented in this encounter Additional Health Concerns Infection Onset Date Last Indicated Resolved Time Rule Out COVID-19 05/01/2022 05/01/2022 05/02/2022 4:02 PM EDT Assessment Noted Time PHQ-9 Depression Total Score: 0 12/06/19 18 3:00 PM EDT documented as of this encounter Care Teams Roll Reclaimer Relationship Specialty Start Date End Date Edgar Fournier MD [address] [place] [address] [place] [address] PCP - General 12/22/21 Maile Valles, JANA Txp Post Coordinator Transplant Hepatology 11/07/17 Jack Ordoñez MD [address] [place] [phone] Consulting Physician Transplant Hepatology 01/05/18 Estephania Sharif, PharmD Pharmacist Pharmacist 11/11/19 documented as of this encounter
--- OUTSIDE RECORDS SUMMARY | 2024-07-12 12:30 | XMS_ITS | Encounter Summary ---
Author Organization [facility] Address [facility] [place] [address] Care Team Providers Care Coffee Urn Attendant Name Role Phone Maile Valles RN Unavailable Unavail able Jack Ordoñez MD Unavailable Estephania Sharif PharmD Unavailable Christine Edgar Tolentino MD Primary Care Provider [phone] Source Comments This information has been disclosed [...] release of HIV test results or diagnoses. [id number] Encounter Details Date Type Department Care Team (Latest Contact Info) Description 03/30/2022 Travel Social History Tobacco Use Types Packs/Day [...] Answer Date Recorded PHQ-2 Total Score 0 03/16/2020 Sex and Gender Information Value Date Recorded Sex Assigned at Not on file Legal Sex Male 11:05 AM EDT Gender Identity Not on file Sexual Orientation Not on file COVID-19 Exposure Response Date Recorded In the last 10 days, have yo u been in contact with someone who was confirmed or suspected to have Coronavirus/COVID-19? No / Unsure 03/20/2022 2:09 PM EDT documented as of this encounter Plan of Treatment Upcoming Encounters Date Type Department Care Team (Late st Contact Info) Description 07/15/2024 9:00 AM EST Hospital Encounter [facility] Interventional Radiology [address] [place] [phone] Herve Carrillo MD [address] [facility] [address] [place] [address] documented as of this encounter Visit Diagnoses Not on filedocumented in this encounter Additional Health Concerns Assessment Noted Time PHQ-9 Depression Total Score: 0 12/06/19 18 3:00 PM EDT documented as of this encounter Care Teams Coffee Urn Attendant Relationship Specialty Start Date End Date Edgar Fournier MD [address] [place] [phone] PCP - General 12/22/21 Maile Valles, JANA Txp Post Coordinator Transplant Hepatology 11/07/17 Jack Ordoñez MD [address] [place] [phone] Consulting Physician Transplant Hepatology 01/05/18 Estephania Sharif, DarrianD Pharmacist Pharmacist 11/11/19 documented as of this encounter
--- OUTSIDE RECORDS SUMMARY | 2024-07-12 12:30 | XMS_ITS | Encounter Summary ---
Author Organization [facility] Address [address] [place] [address] Care Team Providers Care Internet Marketing Analyst Name Role Phone Maile Valles RN Unavailable Unavail able Jack Ordoñez MD Unavailable [phone] Estephania Sharif PharmD Unavailable Christine Edgar Tolentino MD Primary Care Provider [phone] Source Comments This information has been disclosed [...] release of HIV test results or diagnoses. [id number] Reason for Visit * Reason Comments Medication Management Specialty Pharmacy Post Discharge Check In Encounter Details Date Type Department Care Team (Late st Contact Info) Description 03/29/2022 Telephone [facility] Specialty Pharmacy [address] [place] [address] Judi Khan RPh Medication Management (Specialty Pharmacy Post Discharge Check In) Social History Tobacco Use Types Packs/Day Years [...] Miscellaneous Notes * Telephone Encounter - Judi Khan, [facility] - 03/29/2022 3:33 PM EDT [facility] Specialty Pharmacy Post Discharge Check In Aiden Ivelisse Stauffer Jr. is a 47 y.o. male patient who has a past medical [...] Dx) ??? Vitamin D deficiency Transplant Type: liver Transplant Date: 10/08/2017 Dates of Hospitalization: 03/16/2022 - 03/25/2022 Reason for admission: GI bleed Medication Reconciliation: ?? Patient reported immunosuppressive regimen as: mycophenolate 250 mg twice daily, cyclosporine 100 mg twice daily ?? Patient reported prophylaxis regimen as: entecavir 0.5 mg every 7 days ?? New Meds/Medication Changes during admission: pantoprazole increased to 40 mg twice daily (from daily), restarted magnesium oxide at 400 mg twice daily, started isosorbide mononitrate 90 mg daily,gabapentin changed to 100 mg 3 times daily, metoprolol succinate 100 mg daily changed to xpaodlmirj87.5 mg twice daily Patient's prescription and non-prescription medications and natural supplements were reviewed with the patient by Judi Khan and medication list updated. Adverse Effects & Patient Issues: ??? Assessment of occurrence of medication adverse effects: none ??? Denies signs/symptoms of infection (fever,chills,new onset diarrhea/vomiting, shortness of breath, burning or pain with urination as applicable) ??? Confirmed he receives Retacrit at dialysis, will request for dialysis MD to order cinacalcet - Medicare D will not cover through outpatient pharmacy if patient ESRD (not dispensed at discharge) ??? States updated CPAP setting orders need to be sent to [facility] in [place], [place] ( & ; [phone]) Full clinical reassessment due in 33 weeks, approximately 11/15/2022. Routed note to provider for review. JUDI KHAN [facility]ty Pharmacy [phone] (phone) 03/29/2022, 3:33 PM documented in this encounter Plan of Treatment Upcoming Encounters Date Type Department Care Team (Late st Contact Info) Description 07/15/2024 9:00 AM EST Hospital Encounter [facility] Interventional Radiology [address] [place] [phone] Herve Carrillo MD [address] [facility] [address] [place] [address] documented as of this encounter Visit Diagnoses Not on filedocumented in this encounter Additional Health Concerns Assessment Noted Time PHQ-9 Depression Total Score: 0 12/06/19 18 3:00 PM EDT documented as of this encounter Care Teams Internet Marketing Analyst Relationship Specialty Start Date End Date Edgar Fournier MD [address] [place] [address] Dr [place] [phone] PCP - General 12/22/21 Maile Valles, RN Txp Post Coordinator Transplant Hepatology 11/07/17 Jack Ordoñez MD [address] [place] [phone] Consulting Physician Transplant Hepatology 01/05/18 Estephania Sharif, PharmD Pharmacist Pharmacist 11/11/19 documented as of this encounter
--- OUTSIDE RECORDS SUMMARY | 2024-07-12 12:30 | XMS_ITS | Encounter Summary ---
Author Organization [facility] Address [address] [place] [address] Care Team Providers Care Apartment Leasing Specialist Name Role Phone Maile Valles RN Unavailable Unavail able Jack Ordoñez MD Unavailable [phone] Estephania Sharif PharmD Unavailable Christine Edgar Tolentino MD Primary Care Provider [phone] Source Comments This information has been disclosed [...] release of HIV test results or diagnoses. [id number] Health Encounter Details Date Type Department Care Team (Late st Contact Info) Description 03/29/2022 Telephone [facility] Advanced Heart Failure at [facility] [address] [facility] [address] [place] [address] Vanessa Anguiano RN Social History Tobacco Use Types Packs/Day [...] Telephone Encounter - Vanessa Anguiano RN - 03/29/2022 12:48 PM EDT A user error has taken place: encounter opened in error, closed for administrative reasons. documented in this encounter Plan of Treatment Upcoming Encounters Date Type Department Care Team (Late st Contact Info) Description 07/15/2024 9:00 AM [facility] Hospital Encounter [facility] Interventional Radiology [address] [place] [phone] Herve Carrillo MD [address] [facility] [address] [place] [address] documented as of this encounter Visit Diagnoses Not on filedocumented in this encounter Additional Health Concerns Assessment Noted Time PHQ-9 Depression Total Score: 0 12/06/19 18 3:00 PM EDT documented as of this encounter Care Teams Apartment Leasing Specialist Relationship Specialty Start Date End Date Edgar Fournier MD [address] [place] [address] [place] [phone] PCP - General 12/22/21 Maile Valles, RN Txp Post Coordinator Transplant Hepatology 11/07/17 Jack Ordoñez MD [address] [place] [phone] Consulting Physician Transplant Hepatology 01/05/18 Estephania Sharif, DarrianD Pharmacist Pharmacist 11/11/19 documented as of this encounter
--- OUTSIDE RECORDS SUMMARY | 2024-07-12 12:30 | XMS_ITS | Encounter Summary ---
Author Organization [facility] Address [address] [place] [address] Care Team Providers Care Baker Second Name Role Phone Maile Valles RN Unavailable Unavail able Jack Ordoñez MD Unavailable [phone] Estephania Sharif PharmD Unavailable Christine Edgar Tolentino MD Primary Care Provider [phone] Source Comments This information has been disclosed [...] release of HIV test results or diagnoses. [id number] Reason for Visit * Reason Comments Labs Only Encounter Details Date Type Department Care Team (Late st Contact Info) Description 04/07/2022 11:05 AM EDT Specimen [facility] Outreach Lab [address] [facility] [address] [place] [phone] Jack Ordoñez MD [address] [place] [address] Liver replaced by transplant ([facility]); Encounter for therapeutic drug monitoring; Hyperlipidemia, unspecified hyperlipidemia type Social History Tobacco Use Types Packs/Day Years [...] Contact Info) Description 07/15/2024 9:00 AM [facility] Hospital Encounter [facility] Interventional Radiology [address] [place] [phone] Herve Carrillo MD [address] [facility] [address] [facility] [place] [address] documented as of this encounter Procedures Procedure Name Priority Date/Time Associated Diagnosis Comments HEPATIC FUNCTION PANEL Routine 04/07/2022 11:13 AM EDT Liver replaced by transplant ([facility]) Encounter for therapeutic drug monitoring RENAL FUNCTION PANEL W/EGFR Routine 04/07/2022 11:13 AM EDT Liver replaced by transplant ([facility]) Encounter for therapeutic drug monitoring CYCLOSPORINE LEVEL Routine 04/07/2022 11 :13 AM EDT Liver replaced by transplant ([facility]) Encounter for therapeutic drug monitoring DIFFERENTIAL Routine 04/07/2022 11:13 AM EDT Liver replaced by transplant ([facility]) Encounter for therapeutic drug monitoring CBC Routine 04/07/2022 11:13 AM EDT Liver replaced by transplant ([facility]) Encounter for therapeutic drug monitoring LIPID PANEL Routine 04/07/2022 11:13 AM EDT Hyperlipidemia, unspecified hyperlipidemia type documented in this encounter Results * (ABNORMAL) Lipid Profile (04/07/2022 11:13 AM EDT) [facility] Cholesterol, Total 124 0 - 200 mg/dL 04/07/2022 3:08 PM EDT [facility] Triglycerides 124 10 - 149 mg/dL 04/07/2022 3:08 PM EDT [facility] HDL 36(L) 60 - 92 mg/dL [...] LDL Cholesterol 63 mg/dL 3:[address] [facility] Plasma 04/07/2022 11:1 3 AM EDT 04/07/2022 2:[address] [facility] - 04/07/2022 3:08 PM EDT Must the patient be fasting for this test?->Yes Humza Riley [facility] BLOOD ORDERABLES Final Resul t [facility] [address] * (ABNORMAL) Renal Function Panel w/EGFR (04/07/2022 11:13 AM EDT) Sodium 143 133 - 146 mmol/L 04/07/2022 3:[address] [facility] Potassium 5.0 3.5 - 5.3 mmol/L 04/07/2022 3:[address] [facility] Chloride 99 98 - 110 mmol/L 04/07/2022 3:[address] [facility] CO2 29 21 - 33 mmol/L 04/07/2022 3:[address] [facility] Anion Gap 15 3 - 16 mmol/L 04/07/2022 3:[address] [facility] BUN 61(H) 7 - 25 mg/dL 04/07/2022 3:[address] [facility] Creatinine 8.12(H) 0.60 - 1.30 mg/dL 04/07/2022 3:[address] [facility] Glucose 99 70 - 100 mg/dL 04/07/2022 3:[address] [facility] Calcium 8.0(L) 8.6 - 10.3 mg/dL 04/07/2022 3:[address] [facility] Phosphorus 6.0(H) 2.1 - 4.7 mg/dL 04/07/2022 3:[address] [facility] Albumin 4.5 3.5 - 5.7 g/dL 04/07/2022 3:[address] [facility] Osmolality, Calculated 313(H) 278 - 305 mOsm/kg 04/07/2022 3:[address] [facility] EGFR 8 04/07/2022 3:[address] [facility] Comment:As of 2021, the estimated [...] Disease. Am J Kidney Dis. 2020. Plasma 04/07/2022 11:1 3 AM EDT 04/07/2022 2:[address] [facility] - 04/07/2022 3:08 PM EDT Standing lab. Fax all results to [phone]. Call critical values to [phone]. Jack Ordoñez MD LAB BLOOD ORDERABLES Final Re sult [facility] [address] * (ABNORMAL) Cyclosporine level (04/07/2022 11:13 AM EDT) Cyclosporine, LC/MS 31.3(L) 100.0 - 350.0 ng/mL 04/08/2022 2:[address] [facility] Comment:Performed via liquid chromatography tandem mass spectrometry. Detection limit: 20 ng/mL. Individual target concentrations may vary due to target organ and time after transplant. This test has been developed and its performance characteristics determined by [facility] which is certified under the Clinical Laboratory Improvement Amendment of 1988 (CLIA-88) to perform high complexity testing. The test has not been cleared or approved by the US Food and Drug Administration (FDA). The FDA has determined that such clearance is not necessary. The test should be used for clinical purposes and is not regarded as investigational. Whole Blood 04/07/2022 11:1 3 AM EDT 04/07/2022 2:48 PM EDT Narrative [facility] - 04/08/2022 2:14 PM EDT Standing lab. Fax all results to [phone]. Call critical values to [phone]. Jack Ordoñez MD LAB BLOOD ORDERABLES Final Re sult [facility] [address] * (ABNORMAL) Hepatic Function Panel (04/07/2022 11:13 AM EDT) Total Bilirubin 0.6 0.0 - 1.5 mg/dL 04/07/2022 3:[address] [facility] Bilirubin, Direct 0.19 0.00 - 0.40 mg/dL 04/07/2022 3:[address] [facility] AST 11(L) 13 - 39 U/L 04/07/2022 3:[address] [facility] ALT 8 7 - 52 U/L 04/07/2022 3:[address] [facility] Alkaline Phosphatase 85 36 - 125 U/L 04/07/2022 3:[address] [facility] Total Protein 7.2 6.4 - 8.9 g/dL 04/07/2022 3:[address] [facility] Albumin 4.5 3.5 - 5.7 g/dL 04/07/2022 3:[address] [facility] Bilirubin, Indirect 0.41 0.00 - 1.10 mg/dL 04/07/2022 3:[address] [facility] Plasma 04/07/2022 11:1 3 AM EDT 04/07/2022 2:[address] [facility] - 04/07/2022 3:08 PM EDT Standing lab. Fax all results to [phone]. Call critical values to [phone]. us Jack Ordoñez MD LAB BLOOD ORDERABLES Final Re sult [facility] [address] [place] [address], [facility] * (ABNORMAL) Differential (04/07/2022 11:13 AM EDT) Metamyelocytes Relative 2.0(H) 0.0 - 0.0 % 04/07/2022 4:[address] [facility] Neutrophils Relative 61.8 40.0 - 80.0 % 04/07/2022 4:[address] [facility] Lymphocytes Relative 24.5 15.0 - 45.0 % 04/07/2022 4:[address] [facility] Monocytes Relative 8.8 0.0 - 12.0 % 04/07/2022 4:[address] [facility] Eosinophils Relative 2.9 0.0 - 8.0 % 04/07/2022 4:[address] [facility] Basophils Relative 0.0 0.0 - 1.0 % 04/07/2022 4:[address] [facility] nRBC 2(H) 0 - 0 /100 WBC 04/07/2022 4:[address] [facility] Neutrophils Absolute 1,854 1,500 - 7,800 /uL 04/07/2022 4:[address] [facility] Metamyelocytes Absolute 60(H) 0 - 0 /uL 04/07/2022 4:[address] [facility] Lymphocytes Absolute 735(L) 850 - 3,900 /uL 04/07/2022 4:[address] [facility] Monocytes Absolute 264 200 - 950 /uL 04/07/2022 4:[address] [facility] Eosinophils Absolute 87 15 - 500 /uL 04/07/2022 4:[address] [facility] Basophils Absolute 0 0 - 200 /uL 04/07/2022 4:[address] [facility] Ovalocytes 0 04/07/2022 4:[address] [facility] RBC Morphology Normal 04/07/2022 4:[address] [facility] PLT Morphology Platelet morphology appears normal 04/07/2022 4:[address] [facility] Whole Blood 04/07/2022 11:1 3 AM EDT 04/07/2022 2:[address] [facility] - 04/07/2022 4:39 PM EDT Standing lab. Fax all results to [phone]. Call critical values to [phone]. Jack Ordoñez MD LAB BLOOD ORDERABLES Final Re sult [facility] [address] * (ABNORMAL) CBC (04/07/2022 11:13 AM EDT) WBC 3.0(L) 3.8 - 10.8 10E3/uL 04/07/2022 2:[address] [facility] RBC 2.91(L) 4.20 - 5.80 10E6/uL 04/07/2022 2:[address] [facility] Hemoglobin 9.6(L) 13.2 - 17.1 g/dL 04/07/2022 2:[address] [facility] Hematocrit 29.1(L) 38.5 - 50.0 % 04/07/2022 2:[address] [facility] MCV 100.1(H) 80.0 - 100.0 fL 04/07/2022 2:[address] [facility] MCH 33.1(H) 27.0 - 33.0 pg 04/07/2022 2:[address] [facility] MCHC 33.1 32.0 - 36.0 g/dL 04/07/2022 2:[address] [facility] RDW 14.1 11.0 - 15.0 % 04/07/2022 2:[address] [facility] Platelets 171 140 - 400 10E3/uL 04/07/2022 2:[address] [facility] MPV 7.6 7.5 - 11.5 fL 04/07/2022 2:[address] [facility] Whole Blood 04/07/2022 11:1 3 AM EDT 04/07/2022 2:48 PM EDT Narrative [facility] - 04/07/2022 2:56 PM EDT Standing lab. Fax all results to [phone]. Call critical values to [phone]. us Jack Ordoñez MD LAB BLOOD ORDERABLES Final Re sult [facility] [address] documented in this encounter Visit Diagnoses Diagnosis Liver replaced by transplant ([facility]) Liver replaced by transplant Encounter for therapeutic drug monitoring Hyperlipidemia, unspecified hyperlipidemia type documented in this encounter Additional Health Concerns Assessment Noted Time PHQ-9 Depression Total Score: 0 12/06/19 18 3:00 PM EDT documented as of this encounter Care Teams Baker Second Relationship Specialty Start Date End Date Edgar Fournier MD [address] [place] [address] [place] [address] PCP - General 12/22/21 Maile Valles, RN Txp Post Coordinator Transplant Hepatology 11/07/17 Jack Ordoñez MD [address] [place] [phone] Consulting Physician Transplant Hepatology 01/05/18 Estephania Sharif, Wilbert Pharmacist Pharmacist 11/11/19 documented as of this encounter
--- OUTSIDE RECORDS SUMMARY | 2024-07-12 12:30 | XMS_ITS | Encounter Summary ---
Author Organization [facility] Address [facility] [place] [address] Care Team Providers Care Assistant Production Editor Name Role Phone Maile Valles RN Unavailable Unavail able Jack Ordoñez MD Unavailable Estephania Sharif PharmD Unavailable Christine Edgar Tolentino MD Primary Care Provider [phone] Source Comments This information has been disclosed [...] release of HIV test results or diagnoses. [id number] Encounter Details Date Type Department Care Team (Latest Contact Info) Description 04/07/2022 Travel Social History Tobacco Use Types Packs/Day [...] 07/15/2024 9:00 AM EST Hospital Encounter [facility] Interventional Radiology [address] [place] [phone] Herve Carrillo MD 3130 [facility] [address] [place] [address] documented as of this encounter Visit Diagnoses Not on filedocumented in this encounter Additional Health Concerns Assessment Noted Time PHQ-9 Depression Total Score: 0 12/06/19 18 3:00 PM EDT documented as of this encounter Care Teams Assistant Production Editor Relationship Specialty Start Date End Date Edgar Fournier MD [address] [place] [phone] PCP - General 12/22/21 Maile Valles, RN Txp Post Coordinator Transplant Hepatology 11/07/17 Jack Ordoñez MD [address] [place] [phone] Consulting Physician Transplant Hepatology 01/05/18 Estehpania Sharif, DarrianD Pharmacist Pharmacist 11/11/19 documented as of this encounter
--- OUTSIDE RECORDS SUMMARY | 2024-07-12 12:30 | XMS_ITS | Encounter Summary ---
Author Organization [facility] Address [address] [place] [address] Care Team Providers Care Messenger Copy Name Role Phone Maile Valles RN Unavailable Unavail able Jack Ordoñez MD Unavailable [phone] Estephania Sharif PharmD Unavailable Christine Edgar Tolentino MD Primary Care Provider [phone] Source Comments This information has been disclosed [...] release of HIV test results or diagnoses. [id number] Reason for Visit * Reason Comments Results Pt requesting result s of tests ran on 03/18/22 and a returned call with results Encounter Details Date Type Department Care Team (Late st Contact Info) Description 04/04/2022 Telephone [facility] Advanced Heart Failure at [facility] Office [address] [facility] [address] [place] [address] Humza Riley CNP Results (Pt requesting results of tests ran on 03/18/22 and a returned call with results/) Social History Tobacco Use Types Packs/Day Years [...] Miscellaneous Notes * Telephone Encounter - Poornima Montoya RN - 04/05/2022 11:10 AM EDT Tc to pt to relay message form aretha NAVARRO; I am seeing him this week for the first time, we can discuss then. Pt verbalized understanding. * Telephone Encounter - Kirstin Curry - 04/04/2022 12:46 PM EDT Pt called requesting Humza Riley CNP to review results of tests ran on 03/18/22 and return call withresults. Please return call to Pt at [phone]. documented in this encounter Plan of Treatment Upcoming Encounters Date Type Department Care Team (Late st Contact Info) Description 07/15/2024 9:00 AM EST Hospital Encounter [facility] Interventional Radiology [address] [place] [phone] Herve Carrillo MD 35[address] [facility] [address] [place] [address] documented as of this encounter Visit Diagnoses Not on filedocumented in this encounter Additional Health Concerns Assessment Noted Time PHQ-9 Depression Total Score: 0 12/06/19 18 3:00 PM EDT documented as of this encounter Care Teams Messenger Copy Relationship Specialty Start Date End Date Edgar Fournier MD [address] [place] [address] [place] [address] PCP - General 12/22/21 Maile Valles, RN Txp Post Coordinator Transplant Hepatology 11/07/17 Jack Ordoñez MD [address] [place] [phone] Consulting Physician Transplant Hepatology 01/05/18 Estephania Sharif, PharmD Pharmacist Pharmacist 11/11/19 documented as of this encounter
--- OUTSIDE RECORDS SUMMARY | 2024-07-12 12:30 | XMS_ITS | Encounter Summary ---
Author Organization [facility] Address [address] [place] [address] Care Team Providers Care Seasonal Retail Merchandiser Name Role Phone Maile Valles RN Unavailable Unavail able Jack Ordoñez MD Unavailable [phone] Estephania Sharif PharmD Unavailable Christine Edgar Tolentino MD Primary Care Provider [phone] Source Comments This information has been disclosed [...] release of HIV test results or diagnoses. [id number] Health Encounter Details Date Type Department Care Team (Late st Contact Info) Description 03/29/2022 Telephone [facility] Advanced Heart Failure at [facility] [address] [facility] [address] [place] [address] Betsy Dixon RN Social History Tobacco Use Types Packs/Day [...] encounter Miscellaneous Notes * Telephone Encounter - Betsy Dixon RN - 04/01/2022 12:17 PM EDT Discharging provider, Dr. De Guzman, responded and able to do verbal settings change. TC to patient to inform him of this. Patient stated that the changes are in place. Betsy Dixon RN, BSN Heart Failure Coordinator c- [phone] * Telephone Encounter - Betsy Dixon RN - 03/31/2022 11:36 AM EDT TC from patient. Patient stated that he received a call from RT Veda from [facility], stating that they cannot use the settings on the discharge summary since his machine cannot go that high.Per Veda via email, I can take a verbal order directly from a MD or MOUSE BREEDER if that is a possibility for you. I would say 25/8 with a PS of 6 should do it. Veda stated that otherwise, she would need to get patient in for a sleep study to change the settings, but this may be months out. Patient does not have a pulse oxand unable to check his sat levels. Message sent to inpatient team that discharged patient but unable to get a clear response. Message sent to Dr. Schulte and team to advise. Betsy Dixon RN, BSN Heart Failure Coordinator c- [phone] * Telephone Encounter - Betsy Dixon RN - 03/30/2022 1:30 PM EDT TC to patient and informed him that this RN faxed his CPAP settings in the discharge summary to [facility]. Encouraged patient to reach out to [facility] or this coordinator if he does not see the setting change soon. Betsy Dixon RN, BSN Heart Failure Coordinator c- [phone] * Telephone Encounter - Betsy Dixon RN - 03/30/2022 11:58 AM EDT Faxed discharge summary with updated CPAP settings to [facility]. TC to [facility] to confirm fax number [phone] and to confirm receipt. Betsy Dixon RN, BSN Heart Failure Coordinator c- [phone] * Telephone Encounter - Betsy Dixon RN - 03/29/2022 2:56 PM EDT Heart Failure Follow-up Phone Call TC to patient to offer HDFU appointment per Dr. Schulte's request. Patient stated that he can only make appts on Tuesdays and since he has dialysis on M, W, F. Patient stated that he cannot make this . Offered patient first avail appt 04/07 with VALERIA Ching (patient requested 9 am appt due to long commute). Patient stated that his CPAP machine did not have the updated setting that was used in the hospital. Message sent to provider to clarify settings. Betsy Dixon RN, BSN Heart Failure Coordinator c- [phone] documented in this encounter Plan of Treatment Upcoming Encounters Date Type Department Care Team (Late st Contact Info) Description 07/15/2024 9:00 AM EST Hospital Encounter [facility] Interventional Radiology [address] [place] [phone] Herve Carrillo MD 3130 [facility] Ed [address] [place] [phone] documented as of this encounter Visit Diagnoses Not on filedocumented in this encounter Additional Health Concerns Assessment Noted Time PHQ-9 Depression Total Score: 0 12/06/19 18 3:00 PM EDT documented as of this encounter Care Teams Seasonal Retail Merchandiser Relationship Specialty Start Date End Date Edgar Fournier MD [address] [place] [address] [place] [address] PCP - General 12/22/21 Maile Valles, RN Txp Post Coordinator Transplant Hepatology 11/07/17 Jack Ordoñez MD [address] [place] [phone] Consulting Physician Transplant Hepatology 01/05/18 Estephania Sharif, DarrianD Pharmacist Pharmacist 11/11/19 documented as of this encounter
--- OUTSIDE RECORDS SUMMARY | 2024-07-12 12:30 | XMS_ITS | Encounter Summary ---
Author Organization [facility] Address [address] [place] [address] Care Team Providers Care Long Goods Drier Name Role Phone Maile Valles RN Unavailable Unavail able Jack Ordoñez MD Unavailable [phone] Estephania Sharif PharmD Unavailable Christine Edgar Tolentino MD Primary Care Provider [phone] Source Comments This information has been disclosed [...] release of HIV test results or diagnoses. [id number] Reason for Visit * Reason Comments Results EGD Encounter Details Date Type Department Care Team (Late st Contact Info) Description 04/04/2022 Telephone [facility] Gastroenterology at [facility] [address] [place] [phone] Roxann Morrow MD Results (EGD) Social History Tobacco Use Types Packs/Day Years [...] Miscellaneous Notes * Telephone Encounter - Marilin Larson RN - 04/04/2022 2:17 PM EDT Relayed results to patient, he expressed understanding. * Telephone Encounter - Sruthi Irwin MA - 04/04/2022 11:11 AM EDT Pt called requesting a call back to discuss EGD results at: [phone] Pt seen in the hospital by provider. No OV. documented in this encounter Plan of Treatment Upcoming Encounters Date Type Department Care Team (Late st Contact Info) Description 07/15/2024 9:00 AM EST Hospital Encounter [facility] Interventional Radiology [address] [place] [phone] Herve Carrillo MD [address] [facility] [address] Surgery [place] [phone] documented as of this encounter Visit Diagnoses Not on filedocumented in this encounter Additional Health Concerns Assessment Noted Time PHQ-9 Depression Total Score: 0 12/06/19 18 3:00 PM EDT documented as of this encounter Care Teams Long Goods Drier Relationship Specialty Start Date End Date Edgar Fournier MD [address] [place] [address] [place] [address] PCP - General 12/22/21 Maile Valles, JANA Txp Post Coordinator Transplant Hepatology 11/07/17 Jack Ordoñez MD [address] [place] [phone] Consulting Physician Transplant Hepatology 01/05/18 Estephania Sharif, PharmD Pharmacist Pharmacist 11/11/19 documented as of this encounter
--- OUTSIDE RECORDS SUMMARY | 2024-07-12 12:30 | XMS_ITS | Encounter Summary ---
Author Organization [facility] Address [address] [place] [address] Care Team Providers Care Contract Administrator Name Role Phone Maile Valles RN Unavailable Unavail able Jack Ordoñez MD Unavailable [phone] Estephania Sharif PharmD Unavailable Christine Edgar Tolentino MD Primary Care Provider [phone] Source Comments This information has been disclosed [...] release of HIV test results or diagnoses. [id number] Health Encounter Details Date Type Department Care Team (Late st Contact Info) Description 04/07/2022 Telephone [facility] Gastroenterology at [facility] [address] [facility] [address] [place] [address] Jack Ordoñez MD [address] [place] [address] Social History Tobacco Use Types [...] Telephone Encounter - Marilin Larson RN - 04/08/2022 1:32 PM EDT Called patient and instructed him on use of protonix BID. Also advised that if he starts having bloody emesis or an intense sharp pain in stomach to go to the ED. Patient expressed understanding. * Telephone Encounter - Marilin Larson RN - 04/08/2022 1:31 PM EDT Images from the original note were not included. MD Jenny Jerez Cc: Wilmer Hoyos MD; Jack Ordoñez MD; Marilin Larson RN We told him to do protonix BID. No other meds as path was negative for H. Pylori ?? Previous Messages ?? ----- Message ----- From: Jenny Crawford Sent: 04/07/2022 ?? 1:08 PM EDT To: Jack Ordoñez MD, Wilmer Hoyos MD, * Subject: RE: EGD scheduling change ? All, I called patient and scheduled EGD on 05.18.22 w/ Dr. Ordoñez. He states he is currently still having abdominal pain when he eats. He is taking protonix. He thought he was supposed to start a new medication for this. Please advise. Thanks! Jenny * Telephone Encounter - Jenny Crawford - 04/07/2022 11:58 AM EDT Called and scheduled patient for EGD on 05.18.22 at 3pm. Confirmed that patient is not on any kind of anticoagulation therapy. Instructed patient to be NPO after midnight with the exception of blood pressure medication. Instructed to arrive at [facility] at 1pm with escort. Directions given, verblized understanding. Written instructions and directions placed in my chart and verbalized as well. * Telephone Encounter - Jenny Crawford - 04/07/2022 10:15 AM EDT LVM w/ my direct number for return call to schedule * Telephone Encounter - Jenny Crawford - 04/07/2022 10:15 AM EDT ----- Message from Jack Ordoñez MD sent at 03/29/2022 8:34 AM EDT ----- Regarding: RE: EGD scheduling change Should be fine ----- Message ----- From: Jenny Crawford Sent: 03/28/2022 4:20 PM EDT To: Jack Ordoñez MD, Wilmer Hoyos MD Subject: RE: EGD scheduling change Dr. Ordoñez, Patient states he has dialysis on MWF. He says he could be at the hospital by 1pm. Do you recommendhim having the EGD the same day as dialysis? Thanks! Jenny ----- Message ----- From: Wilmer Hoyos MD Sent: 03/25/2022 2:59 PM EDT To: Jenny Crawford Subject: RE: EGD scheduling change Yes, please schedule with Smita for gastric ulcer follow up Thanks Wilmer ----- Message ----- From: Jenny Crawford Sent: 03/25/2022 2:17 PM EDT To: Wilmer Hoyos MD Subject: RE: EGD scheduling change Dr. Hoyos, Does this EGD still need to be scheduled w/ Dr. Ordoñez? If so whats the diagnosis? Thanks! Jenny ----- Message ----- From: Wilmer Hoyos MD Sent: 03/23/2022 11:59 AM EDT To: Eleni Ramirez Subject: EGD scheduling change Zahraa Knowles and Jenny, Talked to Dr. Ordoñez. Would you please schedule this with Dr. Ordoñez rather than the GI fellows. Thank you Wilmer documented in this encounter Plan of Treatment Upcoming Encounters Date Type Department Care Team (Late st Contact Info) Description 07/15/2024 9:00 AM EST Hospital Encounter [facility] Interventional Radiology [address] [place] [id number] Herve Carrillo MD [address] [facility] [address] [facility] [place] [address] documented as of this encounter Visit Diagnoses Not on filedocumented in this encounter Additional Health Concerns Assessment Noted Time PHQ-9 Depression Total Score: 0 12/06/19 18 3:00 PM EDT documented as of this encounter Care Teams Contract Administrator Relationship Specialty Start Date End Date Edgar Fournier MD [address] [place] [address] JASON Downs [phone] PCP - General 12/22/21 Maile Valles, RN Txp Post Coordinator Transplant Hepatology 11/07/17 Jack Ordoñez MD [address] [place] [phone] Consulting Physician Transplant Hepatology 01/05/18 Estephania Sharif, PharmD Pharmacist Pharmacist 11/11/19 documented as of this encounter
--- OUTSIDE RECORDS SUMMARY | 2024-07-12 12:30 | XMS_ITS | Encounter Summary ---
Author Organization [facility] Address [address] [place] [address] Care Team Providers Care Embedded Systems Designer Name Role Phone Maile Valles RN Unavailable Unavail able Jack Ordoñez MD Unavailable [phone] Estephania Sharif PharmD Unavailable Christine Edgar Tolentino MD Primary Care Provider [phone] Source Comments This information has been disclosed [...] release of HIV test results or diagnoses. [id number] Health Encounter Details Date Type Department Care Team (Late st Contact Info) Description 03/25/2022 Rx Prior Authorization [facility] [place] [id number] [place] [address] Sussy Pedro, PharmD Social History Tobacco Use Types Packs/Day [...] encounter Miscellaneous Notes * Telephone Encounter - Sussy Pedro PharmD - 03/25/2022 3:53 PM EDT Prior Authorization for cinacalcet was denied. Medication Discharge Service was made aware of the denial. Click on RX Prior Authorization link below for prior auth details. documented in this encounter Plan of Treatment Upcoming Encounters Date Type Department Care Team (Late st Contact Info) Description 07/15/2024 9:00 AM [facility] Hospital Encounter [facility] Interventional Radiology [address] [place] [address] Herve Carrillo MD [address] [facility] [address] [place] [address] documented as of this encounter Visit Diagnoses Not on filedocumented in this encounter Additional Health Concerns Assessment Noted Time PHQ-9 Depression Total Score: 0 12/06/19 18 3:00 PM EDT documented as of this encounter Care Teams Embedded Systems Designer Relationship Specialty Start Date End Date Edgar Fournier MD [address] [place] [address] [place] [address] PCP - General 12/22/21 Maile Valles, RN Txp Post Coordinator Transplant Hepatology 11/07/17 Jack Ordoñez MD [address] [place] [phone] Consulting Physician Transplant Hepatology 01/05/18 Estephania Sharif, PharmD Pharmacist Pharmacist 11/11/19 documented as of this encounter
--- OUTSIDE RECORDS SUMMARY | 2024-07-12 12:30 | XMS_ITS | Encounter Summary ---
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 Overall study quality is good. There is a study artifact related to diaphragmatic attenuation Scan significance indicates moderate cardiac risk. Test sensitivity is reduced with testing on anti-anginal drugs. Summary report to [place] in Dr. Fournier's office. Final report faxed to Dr. Fournier's office. PERFUSION FINDINGS There is a medium sized area of moderately decreased perfusion in the basal inferior, mid inferior,and apical inferior wall at stress with partial improvement at rest, consistent with mixed ischemiaand scar. There is no evidence of visual transient dilation with a normal stress/rest left ventricular volume ratio of 1.06. The sum stress score is 4 (normal: less than 4, mildly abnormal: 4-8, severely abnormal: greater than 8). The right ventricle is dilated. FUNCTION FINDINGS The calculated left ventricular ejection fraction at rest is mildly reduced at 46% with an end diastolic volume of 167 mL and end systolic volume of 91 mL. The post-stress ejection fraction is normal at 51% with an end diastolic volume of 190 mL and end systolic volume of 94 mL. Left ventricular regional wall motion is normal. PHARMACOLOGIC STRESS TECHNIQUE Indication: The patient is referred for evaluation of chest pain, shortness of breath, and coronaryartery disease. The patient was not experiencing chest pain on 05/07/2018 at the time of the study. The pharmacologic technique was utilized due to difficulty walking. Following the intravenous injection of 14.78 millicuries of Tc-99m tetrofosmin with the patient at rest (heart rate 75, blood pressure 171/95) cardiac SPECT imaging was performed one hour following injection given at 1350. Subsequently the patient received 0.4 milligrams of regadenoson intravenously followed by an intravenous injection of 30.9 millicuries of ??Tc-99m tetrofosmin (stress heart rate 109, blood pressure 149/91). Cardiac SPECT imaging was performed 45 minutes following injection given at 1515. The patient experienced atypical angina 5/10, shortness of breath, fatigue, and headache. Symptoms relieved with oral caffeine. ECG DATA: Rest ECG: Sinus rhythm/Normal conduction/No arrhythmias/Nonspecific ST-T abnormality Stress ECG: Sinus tachycardia/No arrhythmias/Nonspecific ST changes, less than 0.[address] segment depression ECG findings (only): Nondiagnostic ECG due to inadequate heart rate. Please refer to the FINAL SCAN INTERPRETATION at the top of this report. The note was transcribed by Rahul Bales for Dr Rosendo Flores Interpretation date: 05/07/2018 Transcribed date: 05/07/2018 Report Verified by: ROSENDO FLORES M.D. at 05/07/2018 4:57 PM EDT Specimen Collected: 05/07/18 12:31 PM Last Resulted: 05/07/18 ??4:57 PM EKG Narrative Ventricular Rate: ??71 ??BPM Atrial Rate: ??71 ??BPM P-R Interval: ??234 ??ms QRS Duration: ??108 ??ms QT: ??472 ??ms QTc: ??512 ??ms P [place]: ??50 ??degrees R [place]: ??71 ??degrees T [place]: ??40 ??degrees Diagnosis Line: ??SINUS RHYTHM WITH 1ST DEGREE A-V BLOCK ^ PROLONGED QT ^ ABNORMAL ECG ^ COMPARED TO THE ECG OF 17-MAR-2022 03:37, ^ BORDERLINE CRITERIA FOR INFERIOR INFARCT ARE NO LONGER PRESENT ^ NONSPECIFIC T WAVE CHANGE HAS REPLACED INVERTED T WAVES IN INFERIOR LEADS ^ Confirmed by MD ANTONIO, HARMAN ([id number]) on 03/19/2022 12:37:36 AM Specimen Collected: 03/18/22 12:43 AM Last Resulted: 03/19/22 12:37 AM Impression: NYHA II AHA/ACC Stage C Wt today 131.8kg. Multiple recent dry weights documented, most current dry weight 125kg Was having SOB prior to hospital admission. Doing better now with SOB and walking, doing better with dry maintaining dry weight at dialysis. Previously was having issues in dialysis with taking off > 2L, had cramping, and was gaining weight. Can walk the length of a football field, has oxygen and has not had to wear it, can walk up 1 flight of stairs, cut grass yesterday and felt fine. No CP, no leg swelling, abdominal bloating has been an ongoing issue. No presyncope, dizziness, palpitations, had some orthopnea but has since improved,sleeps with 1-2 pillows. Last kidney transplant workup was done last June at , he would like to have testing done here. Was previously talked to about cardiomems and plan inpatient was to have repeat RHC with placement. Was treated by Dr. Johnson For prev. blood stream infection Denies fever, chills, cough, muscle aches Plan: HFrEF (EF 45-50%) 2/2 NICM. Who Group II Pulmonary HTN Current Regime - BB: coreg 12.5mg BID AMDAN/ARB/ARNI: lisinopril 40mg daily MRA: none SGLT2i: none Diuretic: none ICD / Lifevest no - challenge dry [facility] given echo abnormalities and CCTA findings MV Vegetation- Mobile echodensity seen on posterior mitral annulus??via TTE performed on 03/2022. Of note, the patient has a history of MRSE vertebral osteomyelitis, diagnosed at the end of 2019, forwhich he completed 8 weeks of antibiotics.??Blood cultures during this admission were negative x3. - outpatient [facility] - Follow up with Dr. Schulte HTN- Nifedipine 90mg BID, Imdur 90mg daily, hydralazine 100mg TID HLD- 10 year ASCVD risk < 7.5%, statin not indicated at this time. last LDL 63 - If should consider statin in future, caution with fenofibrate, reach out to liver txp DM type 2- last A1C 5.8 CKD- on dialysis MWF, target wt. 133.9kg. Is taking ASA 81mg JC- - follow up with sleep med - CPAP * Aubrie Lopez MA - 04/07/2022 9:00 AM EDT Review of Systems; History obtained from the patient General ROS: positive for - sleep disturbance Psychological ROS: all negative ENT ROS: all negative Hematological and Lymphatic ROS: all negative Endocrine ROS: all negative Respiratory ROS: all negative Cardiovascular ROS: all negative Gastrointestinal ROS: all negative Musculoskeletal ROS: all negative Neurological ROS: positive for - impaired coordination/balance Dermatological ROS: all negative * Poornima Montoya RN - 04/07/2022 9:00 AM EDT Pt. given copy of AVS. Verbal and written d/c instructions reviewed, explained, and questions answered. Pt verbalized understanding. documented in this encounter Plan of Treatment Upcoming Encounters Date Type Department Care Team (Late st Contact Info) Description 07/15/2024 9:00 AM EST Hospital Encounter [facility] Interventional Radiology [address] [place] [phone] Herve Carrillo MD [address] [facility] [place] [phone] documented as of this encounter Results * Echo Transesophageal ([facility]) (04/26/2022 4:33 PM EDT) 04/26/2022 2:08 PM EDT Narrative [facility] - 04/26/2022 5:30 PM EDT ?* [facility]* ?[address] [facility] ? [place] [address] ? [phone] Transesophageal Echocardiography Patient: ?Aiden Stauffer MR #: ? [id number] Account: Study Date: 04/26/2022 Gender: ? M Age: ?47 : ?1975 Room: ? [facility] REFERRING ?Humza Riley FELLOW ? Fortino Osborn MD FELLOW ? Mukul Schuler MD PERFORMING ?? Zane Coulter MD READING ?Fortino Osborn MD AFFIRMATIVE ACTION SPECIALIST ??Ashish Sheldon ORDERING ? Humza Riley REFERRING [...] multiplane transesophageal probe was inserted by the advanced practice professional under direct supervision of the attending propeller mechanic. Image quality was good. The transesophageal probe [...] ?Reviewed and confirmed by Zane Coulter MD [id number] Procedure Note Zane Coulter MD - 04/26/2022 * [facility]* [address] [place] [id number] Transesophageal Echocardiography Patient: Aiden Stauffer MR #: [id number] Account: Study Date: 04/26/2022 Gender: M Age: 47 : 1975 Room: [facility] REFERRING Humza Riley FELLOW Fortino Osborn MD FELLOW Mukul Schuler MD PERFORMING Zane Coulter MD READING Fortino Osborn MD AFFIRMATIVE ACTION SPECIALIST Humza Chambers REFERRING Humza Riley ATTENDING Humza Riley Procedure:ECHO [...] multiplane transesophageal probe was inserted by the advanced practice professional under direct supervision of the attending propeller mechanic. Image quality was good. The transesophageal probe [...] Reviewed and confirmed by Zane Coulter MD [id number] us Humza Riley NEEDLE LEADER CV ECHO ORDERABLES Final Result [facility] * (ABNORMAL) Lipid Profile (04/07/2022 11:13 AM [...] Cholesterol 63 mg/dL 2 3:08 PM EDT [facility] Plasma 04/07/2022 11:1 3 AM EDT 04/07/2022 2:49 PM EDT Narrative [facility] - 04/07/2022 3:08 PM EDT Must the patient be fasting for this test?->Yes us Humza Riley NEEDLE LEADER LAB BLOOD ORDERABLES Final Resul t [facility] [address] documented in this encounter Visit Diagnoses Diagnosis Hyperlipidemia, unspecified hyperlipidemia type- Primary Mitral valve vegetation Acute and subacute bacterial endocarditis Liver replaced by transplant (CMS-HCC) Liver replaced by transplant Encounter for therapeutic drug monitoring Hyperlipidemia, unspecified hyperlipidemia type Mitral valve vegetation Acute and subacute bacterial endocarditis documented in this encounter Additional Health Concerns Assessment Noted Time PHQ-9 Depression Total Score: 0 12/06/19 18 3:00 PM EDT documented as of this encounter Care Teams Refractory Tile Helper Relationship Specialty Start Date End Date Edgar Fournier MD [address] [place] [address] [place] [phone] PCP - General 12/22/21 Maile Valles, RN Txp Post Coordinator Transplant Hepatology 11/07/17 Jack Ordoñez MD [address] [place] [phone] Consulting Physician Transplant Hepatology 01/05/18 Estephania Sharif, PharmD Pharmacist Pharmacist 11/11/19 documented as of this encounter
--- OUTSIDE RECORDS SUMMARY | 2024-07-12 12:31 | XMS_ITS | Encounter Summary ---
Author Organization [facility] Address [address] [place] [address] Care Team Providers Care Ready To Wear Department Manager Name Role Phone Maile Valles RN Unavailable Unavail able Jack Ordoñez MD Unavailable [phone] Estephania Sharif PharmD Unavailable Christine Edgar Tolentino MD Primary Care Provider [phone] Source Comments This information has been disclosed [...] release of HIV test results or diagnoses. [id number] Reason for Referral * Physician/ANUSHA (Routine) - Closed Specialty Diagnoses / Procedures Referred By Contac t Referred To Contact [facility] Bariatric Surgery Diagnoses Class 3 severe obesity with serious comorbidity and body mass index (BMI) of 40.0 to 44.9 in adult, unspecified obesity type ([facility]) Shirley Jaimes DO Referral ID Status Reason Start Date Expiration Date Visits Re quested Visits Authorized [id number] Closed 03/25/2022 09/21/2022 1 1 Scheduling Instructions [facility] provides a comprehensive approach [...] and Surgical Revisions Insurance and self-pay ? [facility] and [facility] [email or web address] Surgical Weight Loss - TRIMS (Transplant Related Interdisciplinary Metabolic Surgery) Transplant includes Heart, Liver and Kidney Procedures: Sleeve Gastrectomy Insurance and self-pay - [facility] [email or web address] Medical Weight Loss ? Physician supervised meal replacement. BMI 27 or greater Between ages 18-64 Minimal participation 12 consecutive weeks Self-pay - [facility] [email or web address] Phone #: [phone] Fax #: [phone] * Surgical (Routine) - Closed Specialty Diagnoses / Procedures Referred By Declan hines Referred To Contact Gastroenterology Diagnoses Anemia, unspecified type Procedures Case request GI: EGD, COLONOSCOPY WITH BIOPSY Wilmer Hoyos MD Phone: tel: fax: Referral ID Status Reason Start Date Expiration Date Visits Re quested Visits Authorized [id number] Closed 03/22/2022 09/18/2022 1 1 Reason for Visit * Auth/Cert Specialty Diagnoses / Procedures Referred By Declan hines Referred To Contact Transplant Diagnoses Abdominal pain Abd pain 789.00 (ICD-9-CM) - R10.9 (ICD-10-CM) - Abdominal pain Procedures IP ADMIT [address] [place] [address] Phone: tel: Referral ID Status Reason Start Date Expiration Date Visits Re quested Visits Authorized [id number] 1 1 Encounter Details Date Type Department Care Team (Latest Contact Info) Description 03/16/2022 8:15 PM EDT - 03/25/2022 3:28 PM EDT Hospital Encounter [facility] [address] [place] [id number] Kelsey Carcamo MD Effat, Mohamed, MD [address] [facility] [place] [phone] Rupesh Workman MD [address] [facility] Practice- 2nd [place] [address] Hematochezia (Primary Dx); Right heart enlargement; ESRD (end stage renal disease) [place] Anemia, unspecified type; Acute on chronic heart failure with preserved ejection fraction ([facility] Acute hemodialysis encounter [place] Hypertension secondary to other renal disorders; Type 2 diabetes mellitus with chronic kidney disease on chronic dialysis, 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 [place] Hypertensive heart disease with congestive heart failure, unspecified heart failure type ([facility] LVH (left ventricular hypertrophy); Pre-transplant evaluation for kidney transplant; Class 3 severe obesity with serious comorbidity and body mass index (BMI) of 40.0 to 44.9 in adult, unspecified obesity type ([facility] Discharge Disposition: Home or Self Care WITHOUT [...] Sign Reading Time Taken Comments Blood Pressure 146/70 03/25/2022 11:20 AM EDT Pulse 79 03/25/2022 11:20 AM EDT Temperature 36.5 ??C (97.7 ??F) 03/25/2022 1 0:45 AM EDT Respiratory Rate 20 03/25/2022 11:2 0 AM EDT Oxygen Saturation 98% 03/25/2022 11: 20 AM EDT Inhaled Oxygen Concentration 98% 07/2022 11:20 AM EDT Weight 133.9 kg (295 lb 3.1 oz) 03/25/2022 6:09 AM EDT Height 175.3 cm (5' 9 ) 03/23/2022 8:20 AM EDT Body Mass Index 43.59 03/23/2022 8:20 AM EDT documented in this encounter Discharge Summaries * Shirely Jaimes DO - 03/25/2022 12:39 PM EDT [facility] Inpatient Discharge Summary Patient: Leoncio Rollins Jr. Age: 47 y.o. CSN: [id number] Date of Admission: 03/16/2022 Date of Discharge: 03/25/2022 Attending Physician: No att. providers found Primary Care Physician: Edgar Fournier MD Diagnoses [...] Dx) ??? Vitamin D deficiency Discharge Diagnoses Active Hospital Problems Diagnosis Date Noted ??? Hematochezia [K92.1] 03/16/2022 Resolved Hospital Problems No resolved problems to display. Operations/Procedures Performed (include dates) Surgeries: Surgical/Procedural Cases on this Admission Case IDs Date Procedure Surgeon Location Status [id number] 03/18/22 EGD WITH BIOPSY Kelsey Carcamo MD ENDOSCOPY Can [id number] 03/18/22 RIGHT HEART CATH Oliver Reed MD CARDIAC CATH LABS Comp [id number] 03/23/22 EGD WITH BIOPSY Roxann Moore MD ENDOSCOPY Comp Lines and tubes: Patient Lines/Drains/Airways Status Active Line / PIV Line Name Placement date Placement time Site Days Hemodialysis Access Arteriovenous Fistula Left Forearm -- -- Forearm -- Peripheral IV 03/16/22 Anterior;Right Wrist 03/16/22 1000 Wrist 9 [employer] (include reason) Nephrology: End-Stage renal disease on dialysis/ Volume overload. Cardiology: RHC and management of HFrEF GI: GI bleed with EGD Allergies Allergies Allergen Reactions ??? Tacrolimus Other (See Comments) Anxious feeling and muscle jerking. TOLERATED ENVARSUS BETTER THAN PROGRAF. ??? Codeine Sulfate Hyper ??? Codeine Other (See Comments) Becomes hyper Discharge Medications Medication List TAKE these medications, which are NEW Quantity/Refills carvediloL 12.5 MG tablet Commonly known as: COREG Take 1 tablet (12.5 mg total) by mouth 2 times a day with meals. Quantity: 60 tablet Refills: 0 epoetin giancarlo-epbx 20,000 unit/mL Soln Commonly known as: RETACRIT Intravenous 0.25 mLs (5,000 Units total) every Monday, Monday, and Monday for 30 days. Indications: Anemia in Chronic Kidney Disease Start taking on: March 28, 2022 Quantity: 3 mL For: Anemia in Chronic Kidney Disease Refills: 0 gabapentin 100 MG capsule Commonly known as: NEURONTIN Take 1 capsule (100 mg total) by mouth 3 times a day. Replaces: gabapentin 800 MG tablet Quantity: 90 capsule Refills: 0 isosorbide mononitrate 30 MG 24 hr tablet Commonly known as: IMDUR Take 3 tablets (90 mg total) by mouth daily. Start taking on: March 26, 2022 Quantity: 90 tablet Refills: 0 lisinopriL 40 MG tablet Commonly known as: PRINIVIL Take 1 tablet (40 mg total) by mouth daily. Start taking on: March 26, 2022 Quantity: 30 tablet Refills: 0 magnesium oxide 400 mg tablet Commonly known as: MAG-OX Take 1 tablet (400 mg total) by mouth 2 times a day. Quantity: 60 tablet Refills: 0 TAKE these medication, which have CHANGED Quantity/Refills cinacalcet 30 MG tablet Commonly known as: SENSIPAR Take 1 tablet (30 mg total) by mouth daily with breakfast. Start taking on: March 26, 2022 What changed: ?? medication strength ?? how much to take Quantity: 30 tablet Refills: 0 pantoprazole 40 MG tablet Commonly known as: PROTONIX Take 1 tablet (40 mg total) by mouth 2 times a day. What changed: when to take this Quantity: 30 tablet Refills: 0 TAKE these medications, which you [...] mouth 2 times a day. Refills: 0 cholecalciferol (vitamin D3) 1,250 mcg (50,000 unit) capsule Take 1 capsule by mouth three times weekly on Monday, , and Monday. Refills: 0 cycloSPORINE modified 25 MG capsule [...] mouth daily. Quantity: 30 tablet Refills: 0 hydrALAZINE 100 MG tablet Commonly known as: APRESOLINE Take 1 tablet (100 mg total) by mouth every 8 hours. Quantity: 120 tablet Refills: 0 insulin aspart U-100 100 unit/mL injection Commonly known as: NovoLOG Administers per sliding scale 3 times daily with meals Refills: 0 lidocaine 5 % Commonly known as: LIDODERM Place 1 patch onto the skin daily as needed. Refills: 0 methocarbamoL 500 MG tablet Commonly known as: ROBAXIN Take 500 mg by mouth 4 times daily before meals and at bedtime. Refills: 0 montelukast 10 mg [...] daily Refills: 0 STOP taking these medications gabapentin 800 MG tablet Commonly known as: NEURONTIN Replaced by: gabapentin 100 MG capsule metoprolol succinate 100 MG 24 hr tablet Commonly known as: TOPROL-XL Where to Get Your Medications These medications were sent to [facility] [address] [place] [id number] Hours: Monday - Monday: 8:00AM - 6:00PM ?? carvediloL 12.5 MG tablet ?? cinacalcet 30 MG tablet ?? epoetin giancarlo-epbx 20,000 unit/mL Soln ?? gabapentin 100 MG capsule ?? isosorbide mononitrate 30 MG 24 hr tablet ?? lisinopriL 40 MG tablet ?? magnesium oxide 400 mg tablet ?? pantoprazole 40 MG tablet Discharge Exam Physical Exam Constitutional: Appearance: Normal appearance. He is obese. He is not ill-appearing. HENT: Head: Normocephalic and atraumatic. Right Ear: External ear normal. Left Ear: External ear normal. Nose: Nose normal. Mouth/Throat: Mouth: Mucous membranes are moist. Pharynx: Oropharynx is clear. Eyes: Extraocular Movements: Extraocular movements intact. Conjunctiva/sclera: Conjunctivae normal. Pupils: Pupils are equal, round, and reactive to light. Cardiovascular: Rate and Rhythm: Normal rate and regular rhythm. Pulses: Normal pulses. Heart sounds: Normal heart sounds. Abdominal: General: Bowel sounds are normal. Palpations: Abdomen is soft. Tenderness: There is no abdominal tenderness. There is no guarding or rebound. Hernia: A hernia is present. Musculoskeletal: General: No deformity. Cervical back: Normal range of motion and neck supple. Right lower leg: Edema present. Left lower leg: Edema present. Skin: General: Skin is warm and dry. Neurological: General: No focal deficit present. Mental Status: He is alert and oriented to person, place, and time. Mental status is at baseline. Psychiatric: Mood and Affect: Mood normal. Behavior: Behavior normal. Thought Content: Thought content normal. Judgment: Judgment normal. Reason for Admission Leoncio Rollins Jr. is a 47 y.o. male with PMH of OLT in 2018 2/2 SAL cirrhosis, ESRD on HD MWF, HFmEF (45-50%) w/ diastolic dysfunction, type 2 pulmonary hypertension who presented with gastrointestinal bleeding. Patient found to be in volume overloaded state on admission. Hospital Course Active Hospital Problems Diagnosis Date Noted ??? Hematochezia [K92.1] 03/16/2022 Resolved Hospital Problems No resolved problems to display. #Upper Gastrointestinal bleeding Patient presented with bright [...] Repeat EGD in 8 weeks with GI #Volume Overload #ESRD on HD Patient was [...] Cinacalcet > Sevelamer Carbonate > Mag Oxide #HFrEF, NYHA Class III #Pulm HTN, WHO [...] Follow up with cardiology in 1 month. #HTN Pressures were elevated prior to dialysis [...] mg daily > Nifedipine 90 mg BID #Obstructive Sleep Apnea Patient was found to [...] > Use new CPAP machine as prescribed #Mitral Valve Vegetation Mobile echodensity seen on [...] up with Dr. Schulte in Cardiology clinic # SAL Cirrhosis s/p OLT in 2018 [...] tablet weekly > Follow up with PCP Condition on Discharge 1. Functional Status: normal 2. Mental Status: Alert/Oriented 3. Dietary Restrictions / Tube Feeding / TPN Diet Orders Report Diet cardiac(low fat, salt, cholesterol) fluid restricted 2000 ml, sodium 2 gm (low) starting at 03/24 1517 As listed above 4. Discharge specific orders: None required 5. Core measures followed: (if this is a core measure patient) Discharge Weight: (!) 295 lb 3.1 oz (133.9 kg) Core Measure Documentation Was the Influenza Vaccine Screening Completed?: No, November-April Discharge The core measures checklist is complete for discharge?: Yes Disposition Home with assistance Follow-Up Appointments Future Appointments Date Time Provider Department Center 04/12/2022 1:00 PM Nadya Wilhelm, PhD, RN [facility] No follow-up provider specified. Signed: SHIRLEY JAIMES DO 03/25/2022, 4:13 PM Cosigned by Rupesh Workman MD at 03/25/2022 5:10 PM EDT Associated attestation - Rupesh Workman MD - 03/25/2022 5:10 PM EDT I saw and examined the patient on 03/25/22, and discussed the case with the resident and agree withthe findings and plan as documented in the resident???s note. * Lali Loo MD - 03/24/2022 10:25 AM EDT Subspecialty Follow-up Appointment Chart Note Service: Cardiology Subspecialty Follow-up Disposition: The patient requires subspecialty follow-up as noted below: Note: This information is for [facility] Scheduling use only. It is not the responsibility of the primaryinpatient service to schedule this appointment. 1. Visit type:Faculty Clinic 2. Name of provider to schedule with: Dr Schulte 3. Timing: The appointment should be scheduled in 4 weeks. 4. Location: Any site 5. Ok to overbook if there are no open appointment slots?: No 6. Reason for follow up: needs cardiomem LALI LOO MD 03/24/2022 10:25 AM documented in this encounter Discharge Instructions * Discharge Instructions* Shirley Jaimes DO - 03/23/2022 1:20 PM EDT Thank you for choosing [facility]! You were treated for Volume overload, GI Bleed, and heart failure. Please carefully review the discharge instructions and medication changes below: 1. Please do not take IMDUR and sildenafiL (VIAGRA) within the same 24 hours! These medications, when taken in the same day, can cause very dangerous hypotension (low blood pressure). As we discussed, please continue taking your medications as instructed. Particularly important medications to take as directed are Hydralazine 100 mg every 8 hours, Coreg 12.5 mg Twice daily, Imdur 90 mg daily, lisinopril 40 mg daily, and nifedipine 90 mg twice daily. Medication Changes: - Decreased your dose of Gabapentin from 800mg twice daily to 100 mg three times daily (adjusted for your kidneys). - Increased your pantoprazole from 40 mg daily to 40 mg twice daily. - Increased your Sensipar to 30 mg daily - STOP taking your Metoprolol - START taking Coreg 12.5 mg Twice daily, Imdur 90 mg daily, lisinopril 40 mg daily, and [id number] mg twice daily. Your scheduled follow-up appointments are listed below. For any follow-up visits that have not beenscheduled yet, when our rn coronary care unit is able to schedule them (usually within the next week), you will receive a call with those confirmed details. Future Appointments Date Time Provider Department Center 04/12/2022 1:00 PM Nadya Wilhelm, PhD, RN [facility] Please also follow-up with your PCP (your regular doctor) within 1 to 2 weeks. It was a pleasure taking care of you. Please call your PCP with any questions. documented in this encounter Medications at Time [...] 03/25/2022 3:34 PM EDT 2 05/05/20 22 mycophenolate (CELLCEPT) 250 mg [...] as of this encounter Progress Notes * Ibrahima Singletary - 03/25/2022 3:10 PM EDT Physical Therapy Treatment and Discharge Name: Leoncio Rollins Jr. : 1975 Attending Physician: No att. providers found Admission Diagnosis: Hematochezia [K92.1] Date: 03/25/2022 Room: [address] [place] [address] Reviewed Pertinent hospital course: Yes Hospital Course PT/OT: 47 yo M presented to an OSH with complaint of blood in stool. CT performed at the OSH suggestive of PUD, also with hepatomegaly, periportal edema, and splenomegaly with EV and minimal ascites. Found to be hypertensive in ED. Transferred to [facility] for further evaluation, concernfor rejection and GI bleed. RHC 03/18 demonstrated severe volume overload, transferred to CVICU for SWAN guided diuresis. 03/23: EGD/colonoscopy with mall gastric ulcer biopsied, no source of bleeding. Relevant PMH : OLT in 2018 09/15 SAL cirrhosis, ESRD on HD, pHTN, HFrEF, JC Precautions: no limitations Activity Level: Activity as tolerated Assessment Pt was alert and actively participated in therapy. He demonstrated functional mobility at his baseline level of function. Pt reviewed and demonstrated home exercises with therapist. He does not have acute physical therapy needs and is discharged from physical therapy at this time. Recommendation Recommendation: Home with intermittent assistance Equipment Recommended: None Outcome Measures AM-PAC 6 Clicks Basic Mobility Inpatient Short Form: PT 6 Clicks Score: 24 Mobility Recommendations for Staff Patient ability: Patient ambulates in hallway Assist needed: independently Cognition Overall Cognitive Status: Within Functional Limits Cognitive Assessment: Orientation Level;Arousal/ Alertness;Following Commands;Safety Judgment;Insight Arousal/Alertness: Alert Orientation Level: Oriented X4 Behavior: Cooperative Following Commands: Follows all commands and directions without difficulty Safety Judgment: Good awareness of safety precautions Insight: Demonstrated intact insight into limitation and abilities to complete ADL's safely Pain Pain Score: (pt did not rate) Mobility Bed Mobility Rolling: Independent Supine to Sit: Independent Sit to Supine: Independent Transfers Sit to Stand: Independent Stand to Sit: Independent Gait Distance: 150' Level of Assistance: Supervision Assistive Device: None Gait Characteristics: swing-through pattern;No LOB;R Foot drop Balance Sitting - Static: Independent Sitting - Dynamic: Independent Standing - Static: Independent Standing - Dynamic: Independent Exercise Therapeutic Exercises Side: bilateral Extremity: lower extremity Type of Exercise: AROM Seated Exercises: Ankle pumps;Long arc quads;Right LE;Left LE;5 reps;10 reps;Hip flexion (5-10 reps of each) Standing Exercises: Squats (3x sit to stands) Position after Treatment and Safety Handoff Position after treatment and safety handoff Position after therapy session: Bed Details: RN present;Call light/ needs within reach Alarms: Bed Alarms Status: Not needed-patient low fall risk or medium fall risk with other precautions in place Goals Goals Met: Bed mobility, Gait No further PT goals established secondary to patient with no further acute skilled PT needs. Patient stated goal(s) is/are to go home. Discharge patient from inpatient PT services at this time. Patients and/or caregivers as well as practitioners mutually agreed upon the above goal(s)/plan. Patient/Family Education Educated patient on the role of physical therapy, goals, plan of care, importance of increased activity, discharge recommendations, home exercise program, transfer training, gait training and safety and need for supervision during OOB activity and fall prevention strategies, including need for super vision/ assistance with OOB activity, use of call light and need to alert bedside staff when visitor(s) are leaving; patient verbalized understanding. Handout(s) issued: n/a. Plan Plan Treatment/Interventions: Gait training, Therapeutic Exercise, Therapeutic Activity, Patient/family training PT Frequency: minimum 2x/week The plan of care and recommendations assesses the patient's and/or caregiver's readiness, willingness, and ability to provide or support functional mobility and ADL tasks as needed upon discharge. Time Start Time: 1336 Stop Time: 1345 Time Calculation (min): 9 min Charges $Therapeutic Exercise: 8-22 mins Problem List Patient Active Problem List Diagnosis [...] ??? ABDOMINAL SURGERY ??? BACK SURGERY 04/2020 [facility] ??? COLONOSCOPY N/A 03/23/2022 Procedure: COLONOSCOPY WITH BIOPSY; Surgeon: Roxann Moore MD; Location: ENDOSCOPY; Service: Gastroenterology; Laterality: N/A; [...] 03/23/2022 Procedure: EGD WITH BIOPSY; Surgeon: Roxann Moore MD; Location: ENDOSCOPY; Service: Gastroenterology; Laterality: N/A; [...] Revision 04/2017 ??? TYMPANOSTOMY TUBE PLACEMENT 07/2020 Cosigned by Gem Abarca, PT at 03/25/2022 3:51 PM EDT Associated attestation - Gem Abarca, PT - 03/25/2022 3:51 PM EDT I have reviewed this note agree with all documentation, assessment, and plan of care. Gem Abarca, PT, DPT [facility] Hours: M-F [phone] Department Phone #: [phone] * Noel Moralez RN - 03/25/2022 2:48 PM EDT Pt to discharge VS stable IV removed Personal belongings with Pt AVS reviewed, verbalizes understanding Transported via wheelchair to hospital lobby where ride awaits * Stephan Sequeira MD - 03/25/2022 12:00 PM EDT Images from the original note were not included. Department of Internal Medicine Transplant Nephrology Consult Progress Note Patient: Leoncio Rollins Jr. Assessment: Renal Function: #ESRD - Etiology: DM, HTN - iHD MWF - EDW 136 (prior target weight in 10/2020 was 119kg) - Left AVF - Dr Enrique Albright [place] [facility] Reportedly nearly completed his last HD session on 03/16/2022, with 40 minutes left. On HD MWF. - extra session Monday, UF Monday, HD , HD today ?? #OLT 2018 - IS per hepatology (CsA and MMF) ?? Hemodynamics/CVS: - Meds: Doxazosin 8mg, Hydralazine 100mg TID, Nifedipine 90mg BID, Metoprolol Succ 100mg qhs ? Electrolytes: #Hyperkalemia - to 5.6, hemolyzed Acid Base Status: No current issues. Volume Status: Hypervolemic ?? Mineral Bone Disease: - Continue binders ?? Anemia of GIB: - EGD/C scope showed ulcer, biopsy for H pylori taken ? General Recommendations: - Monitor urine output closely, strict I/O, daily weights. - Avoid nephrotoxins (NSAIDs, MADAN-I, ARB, Contrast dye) - Daily renal panel with phosphorus level. - Renally dose all medications. Plan: - Ok for DC. To continue challenging dry weight at home HD unit Case discussed with consult attending. Please do not hesitate to give us a call for any questions. Stephan Sequeira Nephrology fellow Pager #: [phone] Reason for Consult ESRD on HD Chief Complaint No chief complaint on file. History of Present Illness Leoncio Rollins Jr. is a pleasant 47 y.o. 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 Patient presented on 03/16/2022 with GIB early in the am before his dialysis session. He reports he left his HD session 40 minutes before it completed. Later at home, he had a large BM without blood in it. He has had this happen before that was found to be d/t PUD. He otherwise receives HD routinely without difficulty. He has a LUE AVF, which he reports has low pressure and has been looking to have it evaluated by his surgeon outpatient. He reports his AVF still functions but may require evaluation in the near future. He reports feeling better after Tx in ED and deniesany f, c, headache, dizziness, chest pain, dyspnea, abd pain, n/v/d, malaise, or weakness. Interval History Patient was seen this am. BP today: 146/70. Creatinine today is 6.48. See at HD. Patient able to get off fluid without cramping. Asking about going home Weight at end of session was 129.2 kg, down from 136 EDW before Review of Systems Constitutional: Negative. HENT: Negative. Eyes: Negative. Respiratory: Negative. Cardiovascular: Positive for leg swelling. Gastrointestinal: Negative. Genitourinary: Negative. Musculoskeletal: Negative. Skin: Negative. Neurological: Negative. Medications Current Facility-Administered Medications: ??? acetaminophen (TYLENOL) tablet 650 mg, 650 mg, Oral, Q4H PRN, Gabriel Booth MD, 650 mg at 03/25/22 0051 ??? carBAMazepine (TEGRETOL) tablet 200 mg, 200 mg, Oral, BID, Sherly Hawkins MD, 200 mg at 03/25/22 1124 ??? carvediloL (COREG) tablet 12.5 mg, 12.5 mg, Oral, BID WC, Dariela Wood MD, 12.5 mg at 03/25/221123 ??? cinacalcet (SENSIPAR) tablet 30 mg, 30 mg, Oral, Daily with breakfast, yK Hills MD, 30 mg at 03/25/221123 ??? cycloSPORINE modified (NEORAL/GENGRAF) capsule 100 mg, 100 mg, Oral, BID, Grace Payan DO, 100 mg at 03/25/22 1123 ??? dextrose 10%-water (D10W) IV soln, 12.5 g, Intravenous, Q15 Min PRN OR dextrose 10%-water (D10W) IV soln, 25 g, Intravenous, Q15 Min PRN, Grace Payan DO ??? entecavir (BARACLUDE) tablet 0.5 mg, 0.5 mg, Oral, Q7 Days, Irina Craven MD, 0.5 mg at ??? epoetin giancarlo-epbx (RETACRIT) injection solution 5,000 Units, 5,000 Units, Intravenous, Once perday on Mon, Stephan Sequeira MD, 5,000 Units at 03/25/22 112 ??? fenofibrate tablet 160 mg, 160 mg, Oral, Daily 0900, Grace Payan DO, 160 mg at 03/25/221123 ??? folic acid (FOLVITE) tablet 1 mg, 1 mg, Oral, Daily 0900, Grace Payan DO, 1 mg at ??? gabapentin (NEURONTIN) capsule 100 mg, 100 mg, Oral, TID, Ky Hills MD, 100 mg at 03/25/221123 ??? glucose chewable tablet 12 g, 12 g, Oral, Q15 Min PRN, Grace Payan DO ??? heparin (porcine) injection 5,000 Units, 5,000 Units, Subcutaneous, 3 times per day, Irina Craven MD, 5,000 Units at 03/24/22 1230 ??? hydrALAZINE (APRESOLINE) tablet 100 mg, 100 mg, Oral, 3 times per day, Sherly Hawkins MD, 100 mg at 03/25/221123 ??? insulin lispro (humaLOG) injection 0-5 Units, 0-5 Units, Subcutaneous, TID AC, Dariela Wood MD, 1 Units at 03/24/222011 ??? isosorbide mononitrate (IMDUR) 24 hr tablet 90 mg, 90 mg, Oral, Daily 0900, Laura Gonzalez MD, 90 mg at 03/25/22 112 ??? lisinopriL (PRINIVIL) tablet 40 mg, 40 mg, Oral, Daily 0900, Sherly Hawkins MD, 40 mg at 03/25/221123 ??? magnesium oxide (MAG-OX) tablet 400 mg, 400 mg, Oral, BID, Laura Gonzalez MD, 400 mg at 03/25/221123 ? ? methocarbamoL (ROBAXIN) tablet 500 mg, 500 mg, Oral, 4x Daily AC & HS, Grace Payan, DO,500 mg at 03/25/221123 ??? montelukast (SINGULAIR) tablet 10 mg, 10 mg, Oral, Daily 0900, Grace Payan DO, 10 mg at 03/25/221124 ??? mycophenolate (CELLCEPT) capsule 250 mg, 250 mg, Oral, BID, Grace Payan DO, 250 mg at 03/25/221124 ??? NIFEdipine (PROCARDIA-XL) 24 hr tablet 90 mg, 90 mg, Oral, BID, Neyda Espinoza MD, 90 mg at 03/25/221123 ??? oxyCODONE-acetaminophen (PERCOCET) 5-325 mg per tablet 1 tablet, 1 tablet, Oral, Q4H PRN, Gabriel Booth MD, 1 tablet at 03/24/222205 ??? pantoprazole (PROTONIX) EC tablet 40 mg, 40 mg, Oral, BID, Ana Mercado MD, 40 mg at 124 ??? peppermint oiL liquid 1 mL, 1 mL, MISCELLANEOUS, PRN, Neyda Espinoza MD ??? polyethylene glycol (MIRALAX) packet 238 g, 238 g, Oral, Daily 0900, Wilmer Hoyos MD, 238 g at 03/24/22 1225 ??? sevelamer carbonate (RENVELA) tablet 1,600 mg, 1,600 mg, Oral, TID WC, Grace Payan DO, 1,600 mg at 03/25/22 1124 ??? sodium chloride 0.9 % infusion, 50 mL/hr, Intravenous, Continuous, Wilmer Hoyos MD ??? Place saline lock, , , Once AND sodium chloride flush 10 mL, 10 mL, Intravenous, QS, Grace Payan DO, 10 mL at 03/25/22 1348 ??? terazosin (HYTRIN) capsule 10 mg, 10 mg, Oral, Nightly (2100), Grace Payan DO, 10 mg at 03/24/22 2158 Current Outpatient Medications: ??? ALPRAZolam (XANAX) 0.5 MG tablet, Take 0.5 mg by mouth if needed for Sleep., Disp: , Rfl: ??? aspirin 81 MG chewable tablet, Chew 1 tablet (81 mg total) by mouth daily with breakfast., Disp: 30 tablet, Rfl: 5 ??? calcium acetate,phosphat bind, (PHOSLO) 667 mg capsule, Take 667 mg by mouth 3 times a day withmeals., Disp: , Rfl: ??? carBAMazepine (TEGRETOL) 200 mg tablet, Take 200 mg by mouth 2 times a day. , Disp: , Rfl: ??? carvediloL (COREG) 12.5 MG tablet, Take 1 tablet (12.5 mg total) by mouth 2 times a day with meals., Disp: 60 tablet, Rfl: 0 ??? cholecalciferol, vitamin D3, 1,250 mcg (50,000 unit) capsule, Take 1 capsule by mouth three times weekly on Monday, , and Monday., Disp: , Rfl: ??? [START ON 03/26/2022] cinacalcet (SENSIPAR) 30 MG tablet, Take 1 tablet (30 mg total) by mouth daily with breakfast., Disp: 30 tablet, Rfl: 0 ??? cycloSPORINE modified (CYCLOSPORINE MODIFIED) 25 MG capsule, Take 4 capsules (100 mg total) by mouth 2 times a day., Disp: 720 capsule, Rfl: 1 ??? doxazosin (CARDURA) 8 MG tablet, Take 8 mg by mouth at bedtime. , Disp: , Rfl: ??? entecavir (BARACLUDE) 0.5 MG tablet, Take 1 tablet (0.5 mg total) by mouth every 7 days., Disp:4 tablet, Rfl: 5 ??? [START ON 03/28/2022] epoetin giancarlo-epbx (RETACRIT) 20,000 unit/mL Soln, Intravenous 0.25 mLs (5,000 Units total) every Monday, Monday, and Monday for 30 days. Indications: Anemia in Chronic Kidney Disease, Disp: 3 mL, Rfl: 0 ??? fenofibrate micronized (LOFIBRA) 134 MG capsule, Take 134 mg by mouth every morning before breakfast., Disp: , Rfl: ??? ferrous sulfate 325 (65 FE) MG tablet, Take 1 tablet (325 mg total) by mouth daily with breakfast., Disp: 30 tablet, Rfl: 0 ??? folic acid (FOLVITE) 1 MG tablet, Take 1 tablet (1 mg total) by mouth daily., Disp: 30 tablet, Rfl: 0 ??? gabapentin (NEURONTIN) 100 MG capsule, Take 1 capsule (100 mg total) by mouth 3 times a day., Disp: 90 capsule, Rfl: 0 ??? hydrALAZINE (APRESOLINE) 100 MG tablet, Take 1 tablet (100 mg total) by mouth every 8 hours., Disp: 120 tablet, Rfl: 0 ??? insulin aspart U-100 (NOVOLOG) 100 unit/mL injection, Administers per sliding scale 3 times daily with meals, Disp: , Rfl: ??? [START ON 03/26/2022] isosorbide mononitrate (IMDUR) 30 MG 24 hr tablet, Take 3 tablets (90 mg total) by mouth daily., Disp: 90 tablet, Rfl: 0 ??? lidocaine (LIDODERM) 5 %, Place 1 patch onto the skin daily as needed., Disp: , Rfl: ??? [START ON 03/26/2022] lisinopriL (PRINIVIL) 40 MG tablet, Take 1 tablet (40 mg total) by mouth daily., Disp: 30 tablet, Rfl: 0 ??? magnesium oxide (MAG-OX) 400 mg tablet, Take 1 tablet (400 mg total) by mouth 2 times a day., Disp: 60 tablet, Rfl: 0 ??? methocarbamoL (ROBAXIN) 500 MG tablet, Take 500 mg by mouth 4 times daily before meals and at bedtime., Disp: , Rfl: ??? montelukast (SINGULAIR) 10 mg tablet, Take 10 mg by mouth daily., Disp: , Rfl: ??? mycophenolate (CELLCEPT) 250 mg capsule, Take 1 capsule (250 mg total) by mouth 2 times a day.,Disp: 180 capsule, Rfl: 1 ??? NIFEdipine (PROCARDIA-XL) 90 MG (OSM) 24 hr tablet, Take 90 mg by mouth 2 times a day. , Disp: , Rfl: ??? ondansetron (ZOFRAN-ODT) 4 MG disintegrating tablet, Take 4 mg by mouth every 8 hours as needed. , Disp: , Rfl: ??? pantoprazole (PROTONIX) 40 MG tablet, Take 1 tablet (40 mg total) by mouth 2 times a day., Disp: 30 tablet, Rfl: 0 ??? polyethylene glycol (MIRALAX) 17 gram packet, Take 17 g by mouth daily as needed (mild constipation (no BM for 24 hrs))., Disp: 14 packet, Rfl: 0 ??? proMETHazine (PHENERGAN) 12.5 MG tablet, Take 12.5 mg by mouth every 6 hours as needed., Disp: , Rfl: ??? sevelamer carbonate (RENVELA) 800 mg tablet, Take 1,600 mg by mouth 3 times a day with meals., Disp: , Rfl: ??? testosterone cypionate (DEPOTESTOTERONE CYPIONATE) 200 mg/mL injection, Inject into the muscle., Disp: , Rfl: ??? VASCEPA 1 gram Cap, TAKE 2 Capsule by mouth twice daily, Disp: , Rfl: Physical Examination Vitals: 03/25/22 1120 BP: 146/70 Pulse: 79 Resp: 20 Temp: SpO2: 98% No data found. Wt Readings from Last 3 Encounters: 03/25/22 (!) 295 lb 3.1 oz (133.9 kg) 12/22/21 (!) 299 lb 1.6 oz (135.7 kg) 09/21/21 (!) 274 lb (124.3 kg) Intake/Output Summary (Last 24 hours) at 03/25/2022 1612 Last data filed at 03/25/2022 1100 Gross per 24 hour Intake 860 ml Output 3500 ml Net -2640 ml Physical Exam Constitutional: General: He is not in acute distress. Appearance: He is obese. He is ill-appearing. Comments: Obese male in bed HENT: Head: Normocephalic. Nose: Nose normal. Mouth/Throat: Mouth: Mucous membranes are moist. Pharynx: Oropharynx is clear. Eyes: General: No scleral icterus. Conjunctiva/sclera: Conjunctivae normal. Pupils: Pupils are equal, round, and reactive to light. Cardiovascular: Rate and Rhythm: Regular rhythm. Tachycardia present. Pulses: Normal pulses. Heart sounds: Normal heart sounds. Pulmonary: Effort: Pulmonary effort is normal. No respiratory distress. Breath sounds: Normal breath sounds. Abdominal: General: There is no distension. Palpations: Abdomen is soft. Tenderness: There is no abdominal tenderness. Musculoskeletal: Right lower leg: Edema present. Left lower leg: Edema present. Skin: General: Skin is warm and dry. Neurological: General: No focal deficit present. Mental Status: He is oriented to person, place, and time. Mental status is at baseline. Laboratory Date Recent Labs 03/23/22 0503/24/22 0739 03/25/22 0732 WBC 3.1* 2.8* 2.9* HGB 9.0* 8.4* 8.4* HCT 26.8* 24.6* 24.2* MCV 100.0 99.0 98.8 PLT 160 160 166 Recent Labs 03/23/22 0503/24/22 0739 03/25/22 0732 NA 133 130* 135 K 4.8 4.9 4.7 CL 97* 94* 96* CO2 25 24 28 BUN 28* 40* 32* CREATININE 5.65* 6.97* 6.48* GLUCOSE 87 101* 132* CALCIUM 8.4* 8.0* 8.1* MG 1.9 1.9 2.1 PHOS 3.6 3.9 3.7 ANIONGAP 11 12 11 Recent Labs 03/23/22 0555 03/24/22 0739 03/25/22 0732 CALCIUM 8.4* 8.0* 8.1* PHOS 3.6 3.9 3.7 Lab Results Component Value Date IRON 29 (L) 10/31/2021 TIBC 247 (L) 10/31/2021 FERRITIN 826.6 (H) 10/31/2021 Lab Results Component Value Date [id number] 325 03/24/2022 Lab Results Component Value Date COLORU Yellow 07/20/2019 CLARITYU Cloudy (A) 07/20/2019 PROTEINUA >=500 (A) 07/20/2019 PHUR 6.0 07/20/2019 LABSPEC 1.017 07/20/2019 GLUCOSEU 150 (A) 07/20/2019 BLOODU Small (A) 07/20/2019 LEUKOCYTESUR Negative 07/20/2019 NITRITE Negative 07/20/2019 BILIRUBINUR Negative 07/20/2019 UROBILINOGEN <2.0 07/20/2019 RBCUA 6 (H) 07/20/2019 WBCUA 1 07/20/2019 BACTERIA Few (A) 07/20/2019 No results for input(s): NAMOHIT, KUR CLMOHIT in the last 72 hours. Invalid input(s): CO2UR, CRUR No results found for: MICROALBUR, [id number] In addition to the above an extensive amount of complex data in the patients lab and chart were reviewed. Diagnostic Imaging Reviewed in EMR. This note was completely edited, written and [...] current evaluation and management for this patient. Cosigned by Rajwinder Polanco at 03/26/2022 12:42 PM EDT Associated attestation - Rajwinder Polanco - 03/26/2022 12:42 PM EDT I saw and evaluated the patient, and discussed with the resident on 03/25/2022. I agree with the resident???s findings and plan as documented in the resident???s note. IHD today Abt 7 kg below EDW. Continue to challenge weight outpatient * Edwin Delacruz MD - 03/24/2022 5:16 PM EDT Images from the original note were not included. Department of Internal Medicine Transfer Acceptance Note General Leoncio Rollins Jr. is a 47 y.o. 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 Brief Hospital Course Patient originally presented to outside hospital after noticing bright red blood per rectum with BMx1. CT AP at outside hospital revealed peptic ulcer disease, hepatomegaly, periportal edema, and splenomegaly with minimal ascites. Patient noted to be in volume overloaded state at time of admissionto OSH, with HTN (228/106 mmHg). Patient was given anti-hypertensives, started on a Protonix drip, and transferred to [facility] for further evaluation. Upon presentation to [facility], workup for peptic ulcer disease vs LGIB was started to assess etiology of single episode of bloody BM. In anticipation of EGD/colonoscopy, a pre-operative cardiac risk assessment was performed. TTE during this assessment visualized RV dilation, IVC dilation, as well as a mitral valve vegetation. As a result, it was deemed necessary for the patient to receive R heart catheterization. R heart cath was consistent with volume overload state. As patient is anuric at baseline, inpatient HD was started for fluid removal; swan catheter left in place for further monitoring of R heart & pulmonary dynamics/pressures. Patient deemed suitable for EGD/colonoscopy on 03/23. Results notable for Reinaldo III Non-bleeding gastric ulcer (biopsy performed) and non-bleeding internal hemorrhoids. Patient deemed medically stable for floor transfer on 03/24/22. Interval History Today, the patient is feeling great . Denies SOB and has been up walking without difficulty in room and in quiroz. He is not having any hematochezia nor bloody BMs. His stools have been dark, but he feels this is due to iron supplementation, and is fairly common for him whilst taking this medication. Not making urine, though this is his baseline. Eating and drinking well/without issue. Review of Systems Review of Systems Constitutional: Negative for chills, fever and weight loss. HENT: Negative for ear pain and hearing loss. Respiratory: Negative for cough, hemoptysis, sputum production and shortness of breath. Cardiovascular: Negative for chest pain and palpitations. Gastrointestinal: Negative for constipation, diarrhea, nausea and vomiting. Musculoskeletal: Negative for joint pain and neck pain. Skin: Negative for itching and rash. Neurological: Negative for dizziness and headaches. Vital Signs Temp: [97.5 ??F (36.4 ??C)-98.4 ??F (36.9 ??C)] 98.4 ??F (36.9 ??C) Heart Rate: [67-92] 79 Resp: [16-18] 16 BP: (112-179)/(54-94) 133/58 FiO2: [45 %] 45 % Intake/Output Summary (Last 24 hours) at 03/24/2022 1716 Last data filed at 03/24/2022 1635 Gross per 24 hour Intake 1230 ml Output 4000 ml Net -2770 ml Physical Exam ??? General: Lying in bed, in no acute distress. Appears well nourished. ? ? Psych: Alert & Oriented x 4. Appropriate mood & affect. No Suicidal Ideation ??? HEENT: Normocephalic, atraumatic external nose and ears. ??? Neck: No JVD. Trachea midline. ??? Respiratory: Non-labored breathing on RA. Lung simmons clear to auscultation bilaterally. ? ? Cardiovascular: Appropriate rate & regular rhythm. Softly audible S1 & S2. Systolic murmur present. 2+ radial pulses bilaterally. No pitting edema appreciated bilaterally; though visualization of legs appear somewhat edematous and impression of 'sock cuffs' are apparent after pulling his socks down, bilaterally. ??? Abdomen: Vertically oriented scar spanning from epigastric area to umbilicus - from prior surgery. Large ventral hernia present, reducible. Abdomen firm and distended. No appreciable fluid wave. No pain elicited with palpation of any quadrant. No rebound tenderness present. No guarding displayed. Bowel sounds appreciated and appropriate in all quadrants. ??? Musculoskeletal: No skeletal deformities nor joint swelling evident. No cyanosis. ??? Skin: Warm and dry. Appropriate coloration. Fistula in L arm. ??? Neuro: Speech normal. Moves all extremities spontaneously. Sensation intact diffusely. Laboratory Data Lab Results Component Value Date NA 130 (L) 03/24/2022 K 4.9 03/24/2022 CL 94 (L) 03/24/2022 CO2 24 03/24/2022 BUN 40 (H) 03/24/2022 CREATININE 6.97 (H) 03/24/2022 GLUCOSE 101 (H) 03/24/2022 CALCIUM 8.0 (L) 03/24/2022 BCR 6.9 11/19/2020 PHOS 3.9 03/24/2022 ALBUMIN 4.1 03/24/2022 EGFR 9 03/24/2022 Lab Results Component Value Date WBC 2.8 (L) 03/24/2022 HGB 8.4 (L) 03/24/2022 HCT 24.6 (L) 03/24/2022 MCV 99.0 03/24/2022 PLT 160 03/24/2022 Older/other lab results reviewed in [facility] Micro/Infection No new micro/infection studies to review All older studies personally reviewed in [facility] Diagnostic Imaging No new imaging to review All older imaging personally reviewed in [facility] Medications Scheduled Meds: ??? carBAMazepine 200 mg Oral BID ??? carvediloL 12.5 mg Oral BID WC ??? cinacalcet 60 mg Oral Daily with breakfast ??? cycloSPORINE modified 100 mg Oral BID ??? entecavir 0.5 mg Oral Q7 Days ??? epoetin giancarlo-epbx 5,000 Units Intravenous Once per day on Mon ??? fenofibrate 160 mg Oral Daily 0900 ??? folic acid 1 mg Oral Daily 0900 ??? gabapentin 800 mg Oral BID ??? heparin 5,000 Units Subcutaneous 3 times per day ??? hydrALAZINE (APRESOLINE) oral tablet 100 mg Oral 3 times per day ??? insulin lispro 0-5 Units Subcutaneous TID AC ??? isosorbide mononitrate 90 mg Oral Daily 0900 ??? lisinopriL 40 mg Oral Daily 0900 ??? magnesium oxide 400 mg Oral BID ? ? methocarbamoL 500 mg Oral 4x Daily AC & HS ??? montelukast 10 mg Oral Daily 0900 ??? mycophenolate 250 mg Oral BID ??? NIFEdipine 90 mg Oral BID ??? pantoprazole 40 mg Oral BID ??? polyethylene glycol 238 g Oral Daily 0900 ??? sevelamer carbonate 1,600 mg Oral TID WC ??? sodium chloride 10 mL Intravenous QS ??? terazosin 10 mg Oral Nightly (2099) Continuous Infusions: ??? sodium chloride 0.9 % PRN Meds: acetaminophen, dextrose 10% in water OR dextrose 10% in water, glucose, oxyCODONE-acetaminophen, peppermint oiL Assessment & Plan Leoncio Rollins Jr. is a 47 y.o. male with history of OLT in 2018 2/2 SAL cirrhosis, ESRD on HD MWF,??HFintEF (45-50%) w/ Diastolic Dysfunction, WHO II Pulm HTN, MRSA vertebral osteomyelitis (2019), and PUD who is on hospital day #6 for GIB & volume overload. The medical issues being addressed in today's encounter are as follows: ?? #HFpEF, NYHA??class III?? #Pulm HTN, WHO II vs III #Volume Overload?? TTE (03/2022): EF 45-50%, GIIDD, hypokanesis of basal-mid anteroseptal myocardium. Mobile echodensity on posterior mitral annulus. RV severely dilated, moderately reduced systolic function.??RHC consistent of volume overload. Dry weight 125 kg.??Has been getting HD almost-daily, swan removed 03/21. Still significantly above dry weight?? Plan: > HD per renal > HTN management as below?? > Follow-up as outpatient with Cardiology in 1 month # ESRD Causation = T2DM, HTN and CNI use. Anuric for some time now. Signs of volume overload - HD MWF while outpatient -??Nephrology following Plan: > Cinacalcet + Sevelamer carbonate + Mag oxide > HD per renal > Monitor lytes; replete as needed ?? # HTN Chronic condition. Worsens prior to HD, as anti-HTN agents are held Plan: > Hydralazine 100mg q8h > lisinopril 40mg daily. > Nifedipine 90mg BID > Carvedilol 12.5 BID > IImdur to 90mg #Mitral Valve Vegetation Mobile echodensity on posterior mitral annulus??(TTE 03/2022)??and has a history of MRSE vertebral osteomyelitis diagnosed end of 2019 and he completed 8 weeks of antibiotics.?? 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 CTAP from OSH with hepatomegaly, periportal edema, and splenomegaly with EV and minimal ascites. MELD-Na score: 22 at 03/18/2022 4:58 AM Calculated from: Serum Creatinine: On dialysis. Using 4 mg/dL. Serum Sodium: 138 mmol/L (Using max of 137 mmol/L) at 03/18/2022 4:58 AM Total Bilirubin: 0.6 mg/dL (Using min of 1 mg/dL) at 03/16/2022 11:34 PM INR(ratio): 1.2 at 03/16/2022 11:34 PM Age: 47 years Plan: >??Cellcept 250 BID?? > Cyclosporine 100 BID > Entacavir. # GIB # Acute on chronic anemia Hgb 8.6 on admission. Baseline hgb 9-10. Recent bloody BM. History of PUD and reccurent esophageal ulcers. Chronic anemia likely 2/2 to ESRD. -??EGD (03/23) = Small gastric ulcer (Biopsied) - Colonoscopy (03/23) = Non-bleeding internal hemorrhoids Plan: > Follow-up gastric ulcer pathology > Repeat EGD in 8 weeks per GI recs > PPI PO BID > EPO (Retacrit) > Iron supplementation # JC Pt report intermittently using BiPAP at home and does not have it with him. - Social work is working to find patient new machine prior to discharge Plan: > Bipap/AVAPS at night > Nocturnal supplemental oxygen for SpO2 >88% #T2DM Chronic condition. HbA1c = 5.8 on 03/17. Peripheral neuropathy present Plan: > SSI with meals > Gabapentin + Tegretol # Leukopenia Likely 2/2 cyclosporine, MMF, and carbamazepine. CTM. # Chronic Pain Plan: > Oxycodone-acetominophen 5-325 mg, 1 tablet q4h PRN > Tylenol 650 mg q4h PRN Nutrition: Diet Orders Report Diet cardiac(low fat, salt, cholesterol) fluid restricted 2000 ml, sodium 2 gm (low) starting at 03/24 1517 DVT PPx: Subcutaneous Heparin PT Recs: Recommendation: Home with intermittent assistance Equipment Recommended: None OT Recs: Recommendation: Home with PRN assist, No skilled OT Equipment Recommendations: Patient has needed bathroom DME [employer]CH[employer] Recs: Code Status: Full Code Dispo: floor Signed: Edwin Delacruz MD Internal Medicine, PGY-1 03/24/2022, 5:16 PM Cosigned by Rupesh Workman MD at 03/25/2022 5:10 PM EDT Associated attestation - Rupesh Workman MD - 03/25/2022 5:10 PM EDT I saw and examined the patient on 03/25/22, and discussed the case with the resident and agree withthe findings and plan as documented in the resident???s note. * Stephan Sequeira MD - 03/24/2022 4:49 PM EDT Images from the original note were not included. Department of Internal Medicine Transplant Nephrology Consult Progress Note Patient: Leoncio Rollins Jr. Assessment: Renal Function: Cr: 7.56 Bun: 37 on 03/19/2022 #ESRD - Etiology: DM, HTN - iHD MWF - EDW 136 (prior target weight in 10/2020 was 119kg) - Left AVF - Dr Enrique Albright [facility] Reportedly nearly completed his last HD session on 03/16/2022, with 40 minutes left. On HD MWF. - extra session Monday, UF Monday, HD today ?? #OLT 2018 - IS per hepatology (CsA and MMF) ?? Hemodynamics/CVS: - Meds: Doxazosin 8mg, Hydralazine 100mg TID, Nifedipine 90mg BID, Metoprolol Succ 100mg qhs ? Electrolytes: #Hyperkalemia - to 5.6, hemolyzed Acid Base Status: No current issues. Volume Status: Hypervolemic ?? Mineral Bone Disease: - Continue binders ?? Anemia of GIB: - EGD/C scope showed ulcer, biopsy for H pylori taken ? General Recommendations: - Monitor urine output closely, strict I/O, daily weights. - Avoid nephrotoxins (NSAIDs, MADAN-I, ARB, Contrast dye) - Daily renal panel with phosphorus level. - Renally dose all medications. Plan: - Dialysis again tomorrow. Will remove fluid until he starts cramping - reduce dose of Gabapentin to renal dosing (100 TID) - Can reduce dose of sensipar to 30 Case discussed with consult attending. Please do not hesitate to give us a call for any questions. Stephan Sequeira Nephrology fellow Pager #: [phone] Reason for Consult ESRD on HD Chief Complaint No chief complaint on file. History of Present Illness Leoncio Rollins Jr. is a pleasant 47 y.o. male with a past medical history of ESKD 2/2 DM2/HTN, on HD (), s/p OLT (2017). Patient presented on 03/16/2022 with GIB early in the am before his dialysis session. He reports he left his HD session 40 minutes before it completed. Later at home, he had a large BM without blood in it. He has had this happen before that was found to be d/t PUD. He otherwise receives HD routinely without difficulty. He has a LUE AVF, which he reports has low pressure and has been looking to have it evaluated by his surgeon outpatient. He reports his AVF still functions but may require evaluation in the near future. He reports feeling better after Tx in ED and deniesany f, c, headache, dizziness, chest pain, dyspnea, abd pain, n/v/d, malaise, or weakness. Interval History Patient was seen this am. BP today: 133/58. Creatinine today is 6.97. See at HD. Patient able to get off fluid without cramping. Asking about CPAP at home Review of Systems Constitutional: Negative. HENT: Negative. Eyes: Negative. Respiratory: Negative. Cardiovascular: Positive for leg swelling. Gastrointestinal: Negative. Genitourinary: Negative. Musculoskeletal: Negative. Skin: Negative. Neurological: Negative. Medications Current Facility-Administered Medications: ??? acetaminophen (TYLENOL) tablet 650 mg, 650 mg, Oral, Q4H PRN, Gabriel Booth MD, 650 mg at 03/22/22 1142 ??? carBAMazepine (TEGRETOL) tablet 200 mg, 200 mg, Oral, BID, Sherly Hawkins MD, 200 mg at 03/24/22 1218 ??? carvediloL (COREG) tablet 12.5 mg, 12.5 mg, Oral, BID WC, Dariela Wood MD, 12.5 mg at 03/24/22 1744 ??? cinacalcet (SENSIPAR) tablet 60 mg, 60 mg, Oral, Daily with breakfast, Grace Payan DO, 60 mg at 03/24/221216 ??? cycloSPORINE modified (NEORAL/GENGRAF) capsule 100 mg, 100 mg, Oral, BID, Grace Payan DO, 100 mg at 03/24/221217 ??? dextrose 10%-water (D10W) IV soln, 12.5 g, Intravenous, Q15 Min PRN OR dextrose 10%-water (D10W) IV soln, 25 g, Intravenous, Q15 Min PRN, Grace Payan DO ??? entecavir (BARACLUDE) tablet 0.5 mg, 0.5 mg, Oral, Q7 Days, Irina Craven MD, 0.5 mg at ??? epoetin giancarlo-epbx (RETACRIT) injection solution 5,000 Units, 5,000 Units, Intravenous, Once perday on Mon, Stephan Sequeira MD, 5,000 Units at 03/23/22 1226 ??? fenofibrate tablet 160 mg, 160 mg, Oral, Daily 0900, Grace Payan DO, 160 mg at 03/24/221216 ??? folic acid (FOLVITE) tablet 1 mg, 1 mg, Oral, Daily 0900, Grace Payan DO, 1 mg at ??? gabapentin (NEURONTIN) capsule 800 mg, 800 mg, Oral, BID, Grace Payan DO, 800 mg at 03/24/22 1217 ??? glucose chewable tablet 12 g, 12 g, Oral, Q15 Min PRN, Grace Payan DO ??? heparin (porcine) injection 5,000 Units, 5,000 Units, Subcutaneous, 3 times per day, Irina Craven MD, 5,000 Units at 03/24/22 1230 ??? hydrALAZINE (APRESOLINE) tablet 100 mg, 100 mg, Oral, 3 times per day, Sherly Hawkins MD, 100 mg at 03/24/22 1744 ??? insulin lispro (humaLOG) injection 0-5 Units, 0-5 Units, Subcutaneous, TID AC, Dariela Wood MD, 1 Units at 03/23/22 2118 ??? isosorbide mononitrate (IMDUR) 24 hr tablet 90 mg, 90 mg, Oral, Daily 0900, Laura Gonzalez MD, 90 mg at 03/24/221217 ??? lisinopriL (PRINIVIL) tablet 40 mg, 40 mg, Oral, Daily 0900, Sherly Hawkins MD, 40 mg at 03/24/221217 ??? magnesium oxide (MAG-OX) tablet 400 mg, 400 mg, Oral, BID, Laura Gonzalez MD, 400 mg at 03/24/22 1219 ? ? methocarbamoL (ROBAXIN) tablet 500 mg, 500 mg, Oral, 4x Daily AC & HS, Grace Payan DO,500 mg at 03/24/22 1745 ??? montelukast (SINGULAIR) tablet 10 mg, 10 mg, Oral, Daily 0900, Grace Payan DO, 10 mg at 03/24/228 ??? mycophenolate (CELLCEPT) capsule 250 mg, 250 mg, Oral, BID, Grace Payan DO, 250 mg at 03/24/221216 ??? NIFEdipine (PROCARDIA-XL) 24 hr tablet 90 mg, 90 mg, Oral, BID, Neyda Espinoza MD, 90 mg at 03/24/221216 ??? oxyCODONE-acetaminophen (PERCOCET) 5-325 mg per tablet 1 tablet, 1 tablet, Oral, Q4H PRN, Gabriel Booth MD, 1 tablet at 03/24/22 1620 ??? pantoprazole (PROTONIX) EC tablet 40 mg, 40 mg, Oral, BID, Ana Mercado MD, 40 mg at ??? peppermint oiL liquid 1 mL, 1 mL, MISCELLANEOUS, PRN, Neyda Espinoza MD ??? polyethylene glycol (MIRALAX) packet 238 g, 238 g, Oral, Daily 0900, Wilmer Hoyos MD, 238 g at 03/24/22 1225 ??? sevelamer carbonate (RENVELA) tablet 1,600 mg, 1,600 mg, Oral, TID WC, Grace Payan, DO, 1,600 mg at 03/24/22 1745 ??? sodium chloride 0.9 % infusion, 50 mL/hr, Intravenous, Continuous, Wilmer Hoyos MD ??? Place saline lock, , , Once AND sodium chloride flush 10 mL, 10 mL, Intravenous, QS, Grace Schuyler DO, 10 mL at 03/23/222130 ??? terazosin (HYTRIN) capsule 10 mg, 10 mg, Oral, Nightly (2099), Grace Payan, DO, 10 mg at 03/23/222126 Physical Examination Vitals: 03/24/22 1500 BP: 133/58 Pulse: 79 Resp: 16 Temp: 98.4 ??F (36.9 ??C) SpO2: 95% No data found. Wt Readings from Last 3 Encounters: 03/24/22 (!) 300 lb 4.3 oz (136.2 kg) 12/22/21 (!) 299 lb 1.6 oz (135.7 kg) 09/21/21 (!) 274 lb (124.3 kg) Intake/Output Summary (Last 24 hours) at 03/24/20221952 Last data filed at 03/24/2022 1635 Gross per 24 hour Intake 1110 ml Output 4000 ml Net -2890 ml Physical Exam Constitutional: General: He is not in acute distress. Appearance: He is obese. He is ill-appearing. Comments: Obese male in bed HENT: Head: Normocephalic. Nose: Nose normal. Mouth/Throat: Mouth: Mucous membranes are moist. Pharynx: Oropharynx is clear. Eyes: General: No scleral icterus. Conjunctiva/sclera: Conjunctivae normal. Pupils: Pupils are equal, round, and reactive to light. Cardiovascular: Rate and Rhythm: Regular rhythm. Tachycardia present. Pulses: Normal pulses. Heart sounds: Normal heart sounds. Pulmonary: Effort: Pulmonary effort is normal. No respiratory distress. Breath sounds: Normal breath sounds. Abdominal: General: There is no distension. Palpations: Abdomen is soft. Tenderness: There is no abdominal tenderness. Musculoskeletal: Right lower leg: Edema present. Left lower leg: Edema present. Skin: General: Skin is warm and dry. Neurological: General: No focal deficit present. Mental Status: He is oriented to person, place, and time. Mental status is at baseline. Laboratory Date Recent Labs 03/22/22 0603/23/22 0555 03/24/22 0739 WBC 3.0* 3.1* 2.8* HGB 8.3* 9.0* 8.4* HCT 25.3* 26.8* 24.6* MCV 101.1* 100.0 99.0 PLT 161 160 160 Recent Labs 03/22/22 1451 03/23/22 0555 03/24/22 0739 NA 135 133 130* K 4.4 4.8 4.9 CL 98 97* 94* CO2 28 25 24 BUN 21 28* 40* CREATININE 4.36* 5.65* 6.97* GLUCOSE 191* 87 101* CALCIUM 8.7 8.4* 8.0* MG 1.8 1.9 1.9 PHOS 2.5 3.6 3.9 ANIONGAP 9 11 12 Recent Labs 03/22/22 1451 03/23/22 0555 03/24/22 0739 CALCIUM 8.7 8.4* 8.0* PHOS 2.5 3.6 3.9 Lab Results Component Value Date IRON 29 (L) 10/31/2021 TIBC 247 (L) 10/31/2021 FERRITIN 826.6 (H) 10/31/2021 Lab Results Component Value Date [id number] 325 03/24/2022 Lab Results Component Value Date COLORU Yellow 07/20/2019 CLARITYU Cloudy (A) 07/20/2019 PROTEINUA >=500 (A) 07/20/2019 PHUR 6.0 07/20/2019 LABSPEC 1.017 07/20/2019 GLUCOSEU 150 (A) 07/20/2019 BLOODU Small (A) 07/20/2019 LEUKOCYTESUR Negative 07/20/2019 NITRITE Negative 07/20/2019 BILIRUBINUR Negative 07/20/2019 UROBILINOGEN <2.0 07/20/2019 RBCUA 6 (H) 07/20/2019 WBCUA 1 07/20/2019 BACTERIA Few (A) 07/20/2019 No results for input(s): NAUR, KUR, CLUR in the last 72 hours. Invalid input(s): CO2UR, CRUR No results found for: MICROALBUR, [id number] In addition to the above an extensive amount of complex data in the patients lab and chart were reviewed. Diagnostic Imaging Reviewed in EMR. This note was completely edited, written and [...] current evaluation and management for this patient. Cosigned by Rajwinder Polanco at 03/26/2022 1:07 PM EDT Associated attestation - Rajwinder Polanco - 03/26/2022 1:07 PM EDT I saw and evaluated the patient, and discussed with the resident on 03/24/2022. I agree with the resident???s findings and plan as documented in the resident???s note. Seen on IHD. Orders confirmed. No issues with access * Laura Gonzalez MD - 03/24/2022 8:36 AM EDT [facility] CVICU Progress Note Room: [facility], LOS: 6 Background / Hosp course to date: Leoncio Rollins Jr. is a 47 y.o. 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 Interval Hx / Subjective Significant events/labs/imaging/hemodynamics over past 24h: - Patient states that he had no acute events overnight. Patient states that when he was admitted [facility] that he had nausea, but have resolved since leaving his ICU room several days prior. Daily Plan: - Continue w/ HD per renal recs - Transfer to medicine team (floor) - Will partner w/ social work in order to have pt's home CPAP unit settings changed. Medications Allergies: Allergies Allergen Reactions ??? Tacrolimus Other (See Comments) Anxious feeling and muscle jerking. TOLERATED ENVARSUS BETTER THAN PROGRAF. ??? Codeine Sulfate Hyper ??? Codeine Other (See Comments) Becomes hyper Scheduled Meds: ??? carBAMazepine 200 mg Oral BID ??? carvediloL 12.5 mg Oral BID WC ??? cinacalcet 60 mg Oral Daily with breakfast ??? cycloSPORINE modified 100 mg Oral BID ??? entecavir 0.5 mg Oral Q7 Days ??? epoetin giancarlo-epbx 5,000 Units Intravenous Once per day on Mon ??? fenofibrate 160 mg Oral Daily 0900 ??? folic acid 1 mg Oral Daily 0900 ??? gabapentin 800 mg Oral BID ??? heparin 5,000 Units Subcutaneous 3 times per day ??? hydrALAZINE (APRESOLINE) oral tablet 100 mg Oral 3 times per day ??? insulin lispro 0-5 Units Subcutaneous TID AC ??? isosorbide mononitrate 90 mg Oral Daily 0900 ??? lisinopriL 40 mg Oral Daily 0900 ? ? methocarbamoL 500 mg Oral 4x Daily AC & HS ??? montelukast 10 mg Oral Daily 0900 ??? mycophenolate 250 mg Oral BID ??? NIFEdipine 90 mg Oral BID ??? pantoprazole 40 mg Oral BID ??? polyethylene glycol 238 g Oral Daily 0900 ??? sevelamer carbonate 1,600 mg Oral TID WC ??? sodium chloride 10 mL Intravenous QS ??? terazosin 10 mg Oral Nightly (2099) PRN Meds: acetaminophen, dextrose 10% in water OR dextrose 10% in water, glucose, oxyCODONE-acetaminophen, peppermint oiL Continuous Infusions: ??? sodium chloride 0.9 % Vital Signs Temp: [97.5 ??F (36.4 ??C)-98.1 ??F (36.7 ??C)] 97.7 ??F (36.5 ??C) Heart Rate: [64-78] 70 Resp: [16-20] 18 BP: (113-169)/(67-93) 142/75 FiO2: [45 %] 45 % Physical Exam Gen: Age-appropriate adult, NAD. Alert. HEENT: NCAT. Large neck soft, supple. CV: RRR, S1 and S2 appropriate. PULM: CTAB. Normal respiratory effort. ABD: Soft, NT, ND. EXT: 2+ distal pulses bilaterally, symmetric. 2+ BLE pitting edema. SKIN: Warm and dry. NEURO: A&O x3, answers questions appropriately, moves all extremities spontaneously. CAM: Overall CAM-ICU : No Delirium RASS: Sifuentes Agitation Sedation Scale: 0 Labs Renal Recent Labs 03/22/22 1451 03/23/22 0555 03/24/22 0739 NA 135 133 130* K 4.4 4.8 4.9 CL 98 97* 94* CO2 28 25 24 BUN 21 28* 40* CREATININE 4.36* 5.65* 6.97* CALCIUM 8.7 8.4* 8.0* MG 1.8 1.9 1.9 PHOS 2.5 3.6 3.9 CBC Recent Labs 03/21/22 1153 03/22/22 0622 03/23/22 0555 WBC -- 3.0* 3.1* HGB 9.1* 8.3* 9.0* HCT -- 25.3* 26.8* PLT -- 161 160 Liver Recent Labs 03/22/22 1451 03/23/22 0555 03/24/22 0739 ALBUMIN 4.1 4.2 4.1 Other Diagnostic Studies EKG: No new EKG since 03/18. Radiology past 24 hrs: No results found. Assessment & Plan Leoncio Oviedo Eh Marques is a 47 y.o. male with Hematochezia. Medical problems being addressed in this encounter include the following: # Cardiovascular: # Cardiovascular: #Mitral Valve Vegetation Mobile echodensity on posterior mitral annulus??(TTE 03/2022)??and has a history of MRSE vertebral osteomyelitis diagnosed end of 2019 and he completed 8 weeks of antibiotics.?? -Blood cultures x 3 NGTD after 48hrs -repeat SOCRATES outpatient once volume-controlled??as outpatient ?? #HFpEF, NYHA??class III?? #Pulm HTN, WHO II (maybe III w/ non-adherent CPAP) #Volume Overload?? TTE (03/2022): EF 45-50%, GIIDD, hypokanesis of basal-mid anteroseptal myocardium. Mobile echodensity on posterior mitral annulus. RV severely dilated, moderately reduced systolic function.??RHC consistent of volume overload. Dry weight 125 kg.??Has been getting HD almost-daily, swan removed 03/21. Still significantly above dry weight? - will continue to HDper renal (recs appreciated) - HTN management as below?? - discuss possibility of cardiomems v cartella during admission; will do as outpatient?? - follow-up w/ cardiology service in 1 month after discharge w/ Dr. Schulte. - d/t uncertain dry wt, can repeat RHC outpt when closer to euvolemic state. - Will transfer to medicine team. ?? #Uncontrolled??HTN - hydralazine 100mg q8h and lisinopril 40mg daily. - Continue home nifedipine 90mg BID -??Carvedilol 12.5 BID - Increase Imdur to 90mg - Fluid removal with dialysis for goal of 135 kg. # Pulmonary: FiO2: [45 %] 45 % No data found. #JC Pt report intermittently using ??BiPAP at home and does not have it with him. - Nocturnal supplemental oxygen for SpO2 >88% - Continue BIPAP/AVAPS at night - Per RT, pt apneic and profoundly hypoxic on current CPAP settings. Needs settings changed prior to discharge.??Social work to discuss finging new Bipap for patient at discharge.?? - Will partner w/ social service manager to contact pt's CPAP company to change settings. # Neurology, Pain, Sedation: - No acute issues. 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 Normal hepatic function panel. CTAP from OSH with hepatomegaly, periportal edema, and splenomegaly with EV and minimal ascites. INR 1.2. Abdominal USN unrevealing - cyclosporine level low -??Cellcept 250 BID,??cyclosporine 100 BID, and??Entacavir. ?? #Acute on chronic anemia 2/2 GIB Hgb 9 -> 8.6 on admit. Baseline hgb 9-10. Hx of multiple esophageal ulcers.??EGD from 2019 with reflux esophagitis, gastritis, and duodenitis. - Continue Protonix 40 BID - Continue iron tabs?? -??Liver consulted: performed EGD/colon today - A small gastric ulcer was biopsied w/ need for pathology follow-up. - Vitamin 9 and 12 labs obtained; results pending. - Will repeat EGD in 8 weeks per GI recs; recs appreciated. - Will continue PPI PO BID - Pt would like to follow-up w/ GI here. # Renal (Electrolytes, Acid/Base): # ESRD on HD MWF 2/2 diabetes, HTN and CNI use -??Nephrology following for HD; recs appreciated - will discuss increased K+, improved management - Monitor lytes and replete as needed Lab 03/24/22 0739 03/23/22 0555 03/22/22 1451 03/22/22 0622 SODIUM 130* 133 135 133 POTASSIUM 4.9 4.8 4.4 5.8* CHLORIDE 94* 97* 98 98 CO2 24 25 28 25 BUN 40* 28* 21 37* CREATININE 6.97* 5.65* 4.36* 6.58* MAGNESIUM 1.9 1.9 1.8 1.9 # Genitourinary: - No acute issues. # Infectious Disease: - No acute issues. # Endocrine: #Diabetic neuropathy #Type 2 Diabetes Mellitus - Hgb A1C 5.8 on 03/17 - SSI with meals - Gabapentin and Tegretol?? Lab 03/23/22 2114 03/23/22 1723 03/23/22 1215 03/23/22 0829 03/23/22 0003 03/22/22 1737 03/22/22 1320 03/22/22 0751 POC GLU MONITORING DEVICE 175* 122* 161* 101* 161* 174* 155* 138* # Hematology/Oncology: # Leukopenia Likely 2/2 cyclosporine, MMF, and carbamazepine. CTM.? Lab 03/23/22 0555 03/22/22 0622 03/21/22 1153 03/21/22 0512 03/20/22 1728 03/20/22 0358 WBC 3.1* 3.0* -- 3.2* -- 3.4* HEMOGLOBIN BLOOD GAS -- -- 9.1* -- < > 8.9* HEMOGLOBIN 9.0* 8.3* -- 8.5* -- 8.8* HEMATOCRIT 26.8* 25.3* -- 25.5* -- 25.8* MEAN CORPUSCULAR VOLUME 100.0 101.1* -- 101.4* -- 102.2* PLATELETS 160 161 -- 161 -- 174 < > = values in this interval not displayed. # Psychiatry: - No acute issues. # Nutrition: Diet Orders Report Diet cardiac(low fat, salt, cholesterol) fluid restricted 2000 ml starting at 03/23 1543 Code Status: Full Code DVT PPx: SQH TID. GI PPx: PPI. PT/OT: consulted. Recs appreciated. - PT Recs: Recommendation: Home with intermittent assistance Equipment Recommended: None - OT Recs: Recommendation: Home with PRN assist, No skilled OT Equipment Recommendations: Patient has needed bathroom DME - [employer] Recs: Signed: LAURA GONZALEZ CVICU Resident 03/24/2022, 8:36 AM Cosigned by Gabino Hong MD at 03/24/2022 8:59 PM EDT Associated attestation - Gabino Hong MD - 03/24/2022 8:59 PM EDT I saw and examined the patient on 03/24/22, and discussed the case with the resident and agree withthe findings and plan as documented in the resident???s note. Patient continues to have improved exercise tolerance. He states he feels much improved. Nephrology continues remove volume as tolerated (300 lbs most recent weight). Patient states he has been as low as 279 lbs (and possibly lower) and gradually gained weight with frequent incomplete dialysis sessions due to leg cramps. Patient will need follow up with Dr. Schulte in CHF clinic upon discharge for possible cardioMEMS placement given difficulty assessing his volume status. Patient transferred to medicine and will continue to be followed by renal consult team. * Yareli Dominguez RN - 03/24/2022 5:45 AM EDT NPN Focus: patient status D: Patient, Leoncio Rollins Jr., had no acute events overnight. A: RN assessed patient and medicated per OCT. Vital signs stable. Call light within reach. Bed locked and in lowest position. R: Patient is resting in bed. Will continue to monitor. YARELI DOMINGUEZ RN * Stephan Sequeira MD - 03/23/2022 1:16 PM EDT Images from the original note were not included. Department of Internal Medicine Transplant Nephrology Consult Progress Note Patient: Leoncio Rollins Jr. Assessment: Renal Function: Cr: 7.56 Bun: 37 on 03/19/2022 #ESRD - Etiology: DM, HTN - iHD MWF - EDW 136 (prior target weight in 10/2020 was 119kg) - Left AVF - Dr Enrique Albright [facility] Reportedly nearly completed his last HD session on 03/16/2022, with 40 minutes left. On HD MWF.- extra session Monday - UF today ?? #OLT 2018 - IS per hepatology (CsA and MMF) ?? Hemodynamics/CVS: - Meds: Doxazosin 8mg, Hydralazine 100mg TID, Nifedipine 90mg BID, Metoprolol Succ 100mg qhs ? Electrolytes: #Hyperkalemia - to 5.6, hemolyzed Acid Base Status: No current issues. Volume Status: Hypervolemic ?? Mineral Bone Disease: - Continue binders ?? Anemia of GIB: - EGD/C scope showed ulcer, biopsy for H pylori taken ? General Recommendations: - Monitor urine output closely, strict I/O, daily weights. - Avoid nephrotoxins (NSAIDs, MADAN-I, ARB, Contrast dye) - Daily renal panel with phosphorus level. - Renally dose all medications. Plan: - UF only today for fluid removal - will dialyze again tomorrow Case discussed with consult attending. Please do not hesitate to give us a call for any questions. Stephan Sequeira Nephrology fellow Pager #: [phone] Reason for Consult ESRD on HD Chief Complaint No chief complaint on file. History of Present Illness Leoncio Rollins Jr. is a pleasant 47 y.o. male with a past medical history of ESKD 2/2 DM2/HTN, on HD (MW), s/p OLT (2017). Patient presented on 03/16/2022 with GIB early in the am before his dialysis session. He reports he left his HD session 40 minutes before it completed. Later at home, he had a large BM without blood in it. He has had this happen before that was found to be d/t PUD. He otherwise receives HD routinely without difficulty. He has a LUE AVF, which he reports has low pressure and has been looking to have it evaluated by his surgeon outpatient. He reports his AVF still functions but may require evaluation in the near future. He reports feeling better after Tx in ED and deniesany f, c, headache, dizziness, chest pain, dyspnea, abd pain, n/v/d, malaise, or weakness. Interval History Patient was seen this am. BP today: 169/80. Creatinine today is 5.65. See at HD. Patient is oriented after procedure. IS asking about home Hemo Review of Systems Constitutional: Negative. HENT: Negative. Eyes: Negative. Respiratory: Negative. Cardiovascular: Positive for leg swelling. Gastrointestinal: Negative. Genitourinary: Negative. Musculoskeletal: Negative. Skin: Negative. Neurological: Negative. Medications Current Facility-Administered Medications: ??? acetaminophen (TYLENOL) tablet 650 mg, 650 mg, Oral, Q4H PRN, Gabriel Booth MD, 650 mg at 03/22/22 1142 ??? carBAMazepine (TEGRETOL) tablet 200 mg, 200 mg, Oral, BID, Sherly Hawkins MD, 200 mg at 03/23/221115 ??? carvediloL (COREG) tablet 12.5 mg, 12.5 mg, Oral, BID WC, Dariela Wood MD, 12.5 mg at 03/23/221115 ??? cinacalcet (SENSIPAR) tablet 60 mg, 60 mg, Oral, Daily with breakfast, Grace Payan DO, 60 mg at 03/23/221115 ??? cycloSPORINE modified (NEORAL/GENGRAF) capsule 100 mg, 100 mg, Oral, BID, Grace Payan DO, 100 mg at 03/22/22 2100 ??? dextrose 10%-water (D10W) IV soln, 12.5 g, Intravenous, Q15 Min PRN OR dextrose 10%-water (D10W) IV soln, 25 g, Intravenous, Q15 Min PRN, Grace Payan DO ??? entecavir (BARACLUDE) tablet 0.5 mg, 0.5 mg, Oral, Q7 Days, Irina Craven MD, 0.5 mg at ??? epoetin giancarlo-epbx (RETACRIT) injection solution 5,000 Units, 5,000 Units, Intravenous, Once perday on Mon, Stephan Sequeira MD, 5,000 Units at 03/23/22 1226 ??? fenofibrate tablet 160 mg, 160 mg, Oral, Daily 0900, Grace DO Schuyler, 160 mg at 03/23/221115 ??? folic acid (FOLVITE) tablet 1 mg, 1 mg, Oral, Daily 0900, Grace Payan DO, 1 mg at 116 ??? gabapentin (NEURONTIN) capsule 800 mg, 800 mg, Oral, BID, Grace Payan DO, 400 mg at 03/23/22 0031 ??? glucose chewable tablet 12 g, 12 g, Oral, Q15 Min PRN, Grace Payan DO ??? heparin (porcine) injection 5,000 Units, 5,000 Units, Subcutaneous, 3 times per day, Irina Craven MD ??? hydrALAZINE (APRESOLINE) tablet 100 mg, 100 mg, Oral, 3 times per day, Sherly Hawkins MD, 100 mg at 03/23/22 0031 ??? insulin lispro (humaLOG) injection 0-5 Units, 0-5 Units, Subcutaneous, TID AC, Dariela Wood MD, 1 Units at 03/22/22 1754 ??? isosorbide mononitrate (IMDUR) 24 hr tablet 60 mg, 60 mg, Oral, Daily 0900, Irina Craven MD, 60mg at 03/23/22 1116 ??? lisinopriL (PRINIVIL) tablet 40 mg, 40 mg, Oral, Daily 0900, Sherly Hawkins MD, 40 mg at 03/22/22 0841 ? ? methocarbamoL (ROBAXIN) tablet 500 mg, 500 mg, Oral, 4x Daily AC & HS, Grace Payan, DO,500 mg at 03/23/22 1116 ??? montelukast (SINGULAIR) tablet 10 mg, 10 mg, Oral, Daily 0900, Grace Payan, DO, 10 mg at 03/23/22 1116 ??? mycophenolate (CELLCEPT) capsule 250 mg, 250 mg, Oral, BID, Grace Payan DO, 250 mg at 03/23/22 111 ??? NIFEdipine (PROCARDIA-XL) 24 hr tablet 90 mg, 90 mg, Oral, BID, Neyda Espinoza MD, 90 mg at 03/22/222107 ??? oxyCODONE-acetaminophen (PERCOCET) 5-325 mg per tablet 1 tablet, 1 tablet, Oral, Q4H PRN, Gabriel Booth MD, 1 tablet at 03/22/222100 ??? pantoprazole (PROTONIX) EC tablet 40 mg, 40 mg, Oral, BID, Ana Mercado MD ??? peppermint oiL liquid 1 mL, 1 mL, MISCELLANEOUS, PRN, Neyda Espinoza MD ??? polyethylene glycol (MIRALAX) packet 238 g, 238 g, Oral, Daily 0900, Wilmer Hoyos MD, 238 g at 03/22/22 1631 ??? sevelamer carbonate (RENVELA) tablet 1,600 mg, 1,600 mg, Oral, TID WC, Grace DO Schuyler, 1,600 mg at 03/23/22 1116 ??? sodium chloride 0.9 % infusion, 50 mL/hr, Intravenous, Continuous, Wilmer Hoyos MD ??? Place saline lock, , , Once AND sodium chloride flush 10 mL, 10 mL, Intravenous, QS, Grace DO Schuyler, 10 mL at 03/23/22 1244 ??? terazosin (HYTRIN) capsule 10 mg, 10 mg, Oral, Nightly (2100), Grace DO Schuyler, 10 mg at 03/22/222057 Physical Examination Vitals: 03/23/22 1723 BP: 169/80 Pulse: Resp: 18 Temp: 97.5 ??F (36.4 ??C) SpO2: 96% Patient Vitals for the past 4 hrs: BP Temp Temp src Pulse Resp SpO2 03/23/22 1723 169/80 97.5 ??F (36.4 ??C) Oral -- 18 96 % 03/23/22 1647 154/87 97.6 ??F (36.4 ??C) Oral 70 18 -- 03/23/22 1645 -- -- -- 71 -- -- 03/23/22 1630 150/87 -- -- 73 -- -- 03/23/22 1615 139/83 -- -- 72 -- -- 03/23/22 1600 (!) 153/93 -- -- 69 -- -- 03/23/22 1545 113/70 -- -- 68 -- -- 03/23/22 1530 138/90 -- -- 65 -- -- 03/23/22 1524 -- -- -- 69 -- -- 03/23/22 1515 164/86 -- -- 71 -- -- 03/23/22 1500 165/90 -- -- 68 -- -- 03/23/22 1445 136/75 -- -- 64 -- -- 03/23/22 1430 131/83 -- -- 65 -- -- 03/23/22 1415 136/80 -- -- 67 -- -- 03/23/22 1400 137/77 -- -- 68 -- -- 03/23/22 1345 140/83 -- -- 71 -- -- 03/23/22 1342 140/83 98 ??F (36.7 ??C) Oral 72 16 96 % 03/23/22 1340 -- -- -- 71 -- 97 % Wt Readings from Last 3 Encounters: 03/23/22 (!) 303 lb (137.4 kg) 12/22/21 (!) 299 lb 1.6 oz (135.7 kg) 09/21/21 (!) 274 lb (124.3 kg) Intake/Output Summary (Last 24 hours) at 03/23/2022 1725 Last data filed at 03/23/2022 1647 Gross per 24 hour Intake 1140 ml Output 4000 ml Net -2860 ml Physical Exam Constitutional: General: He is not in acute distress. Appearance: He is obese. He is ill-appearing. Comments: Obese male in bed HENT: Head: Normocephalic. Nose: Nose normal. Mouth/Throat: Mouth: Mucous membranes are moist. Pharynx: Oropharynx is clear. Eyes: General: No scleral icterus. Conjunctiva/sclera: Conjunctivae normal. Pupils: Pupils are equal, round, and reactive to light. Cardiovascular: Rate and Rhythm: Regular rhythm. Tachycardia present. Pulses: Normal pulses. Heart sounds: Normal heart sounds. Pulmonary: Effort: Pulmonary effort is normal. No respiratory distress. Breath sounds: Normal breath sounds. Abdominal: General: There is no distension. Palpations: Abdomen is soft. Tenderness: There is no abdominal tenderness. Musculoskeletal: Right lower leg: Edema present. Left lower leg: Edema present. Skin: General: Skin is warm and dry. Neurological: General: No focal deficit present. Mental Status: He is oriented to person, place, and time. Mental status is at baseline. Laboratory Date Recent Labs 03/21/22 0512 03/21/22 1153 03/22/22 0622 03/23/22 0555 WBC 3.2* -- 3.0* 3.1* HGB 8.5* 9.1* 8.3* 9.0* HCT 25.5* -- 25.3* 26.8* MCV 101.4* -- 101.1* 100.0 PLT 161 -- 161 160 Recent Labs 03/22/22 0622 03/22/22 1451 03/23/22 0555 NA 133 135 133 K 5.8* 4.4 4.8 CL 98 98 97* CO2 25 28 25 BUN 37* 21 28* CREATININE 6.58* 4.36* 5.65* GLUCOSE 123* 191* 87 CALCIUM 8.4* 8.7 8.4* MG 1.9 1.8 1.9 PHOS 3.7 2.5 3.6 ANIONGAP 10 9 11 Recent Labs 03/22/22 0622 03/22/22 1451 03/23/22 0555 CALCIUM 8.4* 8.7 8.4* PHOS 3.7 2.5 3.6 Lab Results Component Value Date IRON 29 (L) 10/31/2021 TIBC 247 (L) 10/31/2021 FERRITIN 826.6 (H) 10/31/2021 Lab Results Component Value Date [id number] 1,355 (H) 10/31/2021 Lab Results Component Value Date COLORU Yellow 07/20/2019 CLARITYU Cloudy (A) 07/20/2019 PROTEINUA >=500 (A) 07/20/2019 PHUR 6.0 07/20/2019 LABSPEC 1.017 07/20/2019 GLUCOSEU 150 (A) 07/20/2019 BLOODU Small (A) 07/20/2019 LEUKOCYTESUR Negative 07/20/2019 NITRITE Negative 07/20/2019 BILIRUBINUR Negative 07/20/2019 UROBILINOGEN <2.0 07/20/2019 RBCUA 6 (H) 07/20/2019 WBCUA 1 07/20/2019 BACTERIA Few (A) 07/20/2019 No results for input(s): NAUR, KUR, CLUR in the last 72 hours. Invalid input(s): CO2UR, CRUR No results found for: MICROALBUR, [id number] In addition to the above an extensive amount of complex data in the patients lab and chart were reviewed. Diagnostic Imaging Reviewed in EMR. This note was completely edited, written and [...] current evaluation and management for this patient. Cosigned by Sandra Carranza MD at 03/23/2022 10:37 PM EDT Associated attestation - Sandra Carranza MD - 03/23/2022 10:37 PM EDT I did not see the patient, but I have reviewed the notes, assessments, and/or procedures performed by the fellow/resident/DEMONSTRATOR SEWING TECHNIQUES/AI, discussed with the medical team, and I agree with as documented. Plan for daily DIRECTOR OF BUSINESS CONTINUITY/UF to challenge weight and optimize volume iHD today IS per liver team Sandra Carranza MD Transplant Nephrology Pager: [phone] * Earnest Plummer RN - 03/23/2022 12:45 PM EDT Pt resting in room. Current order placed to start NaCl infusion @ 50ml/hr. Contacted team x2 for clarification regarding order. Pt confused stating I thought the goal was to take fluid off? .Infusion currently being held. Awaiting further orders. -Earnest Plummer RN * Tasha Norton OT - 03/23/2022 11:55 AM EDT Occupational Therapy Treatment and Discharge Name: Leoncio Oviedo Eh Marques : 1975 Attending Physician: Ana Mercado MD Admission Diagnosis: Hematochezia [K92.1] Date: 03/23/2022 Room: [address] [place] [address] Reviewed Pertinent hospital course: Yes Hospital Course PT/OT: 47 yo M presented to an OSH with complaint of blood in stool. CT performed at the OSH suggestive of PUD, also with hepatomegaly, periportal edema, and splenomegaly with EV and minimal ascites. Found to be hypertensive in ED. Transferred to [facility] for further evaluation, concernfor rejection and GI bleed. RHC 03/18 demonstrated severe volume overload, transferred to CVICU for SWAN guided diuresis. 03/23: EGD/colonoscopy with mall gastric ulcer biopsied, no source of bleeding. 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 Pt has returned to his baseline level of mobility, completing at independent level. Pt educated re: use of sockaid, paint spray inspector, longhandled sponge and longhandled shoehorn, able to demo understanding Mod I. Pt with no further skilled OT needs, therefore OT serviceswill be discontinued. Pt is safe for discharge home with PRN assist once medically appropriate. Outcome Measures AM-PAC 6 Clicks Daily Activity Inpatient Short Form: OT 6 Clicks Score: 24 Cognition Overall Cognitive Status: Within Functional Limits Cognitive Assessment: Arousal/ Alertness;Orientation Level;Behavior;Following Commands;Safety Judgment;Insight Arousal/Alertness: Alert Orientation Level: Oriented X4 Behavior: Appropriate;Cooperative Following Commands: Follows all commands and directions without difficulty Safety Judgment: Good awareness of safety precautions Insight: Demonstrated intact insight into limitation and abilities to complete ADL's safely Pain Pain Score: 0 - No Pain Exercises Functional Mobility Bed Mobility Supine to Sit: Independent Functional Transfers Sit to Stand: Independent Stand to Sit: Independent Functional Mobility: Independent Functional Mobility Comment: in room distances Balance Sitting - Static: Independent Sitting - Dynamic: Independent Standing - Static: Independent Standing - Dynamic: Independent ADL Lower Body Dressing: Modified independent (Device) Lower Body Dressing Deficit: Don/doff L sock;Don/doff R sock;Use of adaptive equipment Location Assessed LE Dressing: Seated edge of bed Lower Body Dressing Deficit Additional Comments: also reviewed use of longhandled spone, longhandled shoe-horn and paint spray inspector for bathing/dressing tasks, pt demonstrating understanding Position after Treatment/Safety Handoff Position after therapy session: Bed Details: RN notified;Call light/ needs within reach Alarms: Bed Alarms Status: Unchanged from previous setting Goals Goals to be met in: 1 week Patient stated goal: to increase activity Patient will complete supine to sit in prep for ADLs: Independent (with HOB flat -goal met 03/23) Patient will complete toilet transfer: Independent (satisfactory for D/C 03/23) Patient will complete toileting: Independent (satisfactory for D/C 03/23) Patient will complete lower body dressing: Will tolerate assessment (using AE PRN - goal met 03/23) Pt Will tolerate completeing ADLs with pain less than 4/10: . (goal met 03/23) Miscellaneous Goal #1: Patient will tolerate showering assessment (satisfactory for D/C 03/23) Jail Goal : STG Collaborated with: Patient, Family Plan The plan of care and recommendations assesses the patient's and/or caregiver's readiness, willingness, and ability to provide or support functional mobility and ADL tasks as needed upon discharge. Patient/Family Education Educated patient on OT goals, OT plan of care, discharge recommendation, ADL training, functional mobility training and the importance of safety and fall prevention strategies including need for supervision/ assistance with OOB activity and use of call light. patient verbalized understanding. OT Time Start Time: 1108 Stop Time: 1131 Time Calculation (min): 23 min OT Charges $Therapeutic Activity: 8-22 mins $Self Care/ADL/Home Management Trainin-22 mins Problem List Patient Active Problem List Diagnosis [...] ??? ABDOMINAL SURGERY ??? BACK SURGERY 04/2020 [facility] ??? CREATION AV FISTULA ??? ESOPHAGOGASTRODUODENOSCOPY N/A [...] 04/2017 ??? TYMPANOSTOMY TUBE PLACEMENT 07/2020 * Wilmer Hoyos MD - 03/23/2022 9:52 AM EDT Brief Hepatology Note: EGD/Colonoscopy completed today without complications. Small gastric ulcer: biopsied. Will need to follow up pathology. Repeat EGD in 8 weeks to be scheduled by GI. Colonoscopy with no source of bleeding. Likely was from hemorrhoids previously. Recommendations: -Continue current immunosuppression. -Check folic acid and Vit B12 for his anemia. -Continue PPI PO BID -Hepatology will sign off at this time. Please call with questions. * Laura Gonzalez MD - 03/23/2022 8:07 AM EDT [facility] CVICU Progress Note Room: [facility], LOS: 5 Background / Hosp course to date: Leoncio Rollins Jr. is a 47 y.o. 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 Interval Hx / Subjective Significant events/labs/imaging/hemodynamics over past 24h: - Yesterday: No acute events reported by patient. - Overnight: Pt states that his abdominal pain attributed by his hernia is improving. No nausea, vomiting, or other GI symptoms reported by patient. No other acute events reported by patient. - Wts: 137.4 on 03/23 from 139.4 kg on 03/21 Daily Plan: - EGD/Colon today - HD today for a dry weight goal of 135 kg (now at 137.8 kg) Medications Allergies: Allergies Allergen Reactions ??? Tacrolimus Other (See Comments) Anxious feeling and muscle jerking. TOLERATED ENVARSUS BETTER THAN PROGRAF. ??? Codeine Sulfate Hyper ??? Codeine Other (See Comments) Becomes hyper Scheduled Meds: ??? carBAMazepine 200 mg Oral BID ??? carvediloL 12.5 mg Oral BID WC ??? cinacalcet 60 mg Oral Daily with breakfast ??? cycloSPORINE modified 100 mg Oral BID ??? entecavir 0.5 mg Oral Q7 Days ??? epoetin giancarlo-epbx 5,000 Units Intravenous Once per day on Mon ??? fenofibrate 160 mg Oral Daily 0900 ??? folic acid 1 mg Oral Daily 0900 ??? gabapentin 800 mg Oral BID ??? heparin 5,000 Units Subcutaneous 3 times per day ??? hydrALAZINE (APRESOLINE) oral tablet 100 mg Oral 3 times per day ??? insulin lispro 0-5 Units Subcutaneous TID AC ??? isosorbide mononitrate 60 mg Oral Daily 0900 ??? lisinopriL 40 mg Oral Daily 0900 ? ? methocarbamoL 500 mg Oral 4x Daily AC & HS ??? montelukast 10 mg Oral Daily 0900 ??? mycophenolate 250 mg Oral BID ??? NIFEdipine 90 mg Oral BID ??? pantoprazole (PROTONIX) IV 40 mg Intravenous BID6 ??? polyethylene glycol 238 g Oral Daily 0900 ??? sevelamer carbonate 1,600 mg Oral TID WC ??? sodium chloride 10 mL Intravenous QS ??? terazosin 10 mg Oral Nightly (2099) PRN Meds: acetaminophen, dextrose 10% in water OR dextrose 10% in water, glucose, oxyCODONE-acetaminophen, peppermint oiL Continuous Infusions: Vital Signs Temp: [97.2 ??F (36.2 ??C)-98.4 ??F (36.9 ??C)] 98.1 ??F (36.7 ??C) Heart Rate: [61-85] 76 Resp: [14-24] 20 BP: (103-157)/(51-84) 134/80 FiO2: [45 %] 45 % Physical Exam Gen: Morbidly obese male, Age-appropriate adult, NAD. Alert. HEENT: NCAT. Large Neck soft, supple. CV: RRR, S1 and S2 appropriate. PULM: CTAB. Normal respiratory effort. ABD: Soft, NT, very distended. EXT: 2+ distal pulses bilaterally, symmetric. 2+ BLE pitting edema. SKIN: Warm and dry. NEURO: A&O x3, answers questions appropriately, moves all extremities spontaneously. CAM: Overall CAM-ICU : No Delirium RASS: Sifuentes Agitation Sedation Scale: 0 Labs Renal Recent Labs 03/22/22 0622 03/22/22 1451 03/23/22 0555 NA 133 135 133 K 5.8* 4.4 4.8 CL 98 98 97* CO2 25 28 25 BUN 37* 21 28* CREATININE 6.58* 4.36* 5.65* CALCIUM 8.4* 8.7 8.4* MG 1.9 1.8 1.9 PHOS 3.7 2.5 3.6 CBC Recent Labs 03/21/22 0512 03/21/22 1153 03/22/22 0622 03/23/22 0555 WBC 3.2* -- 3.0* 3.1* HGB 8.5* 9.1* 8.3* 9.0* HCT 25.5* -- 25.3* 26.8* PLT 161 -- 161 160 Liver Recent Labs 03/22/22 0622 03/22/22 1451 03/23/22 0555 ALBUMIN 3.9 4.1 4.2 Other Diagnostic Studies EKG : 03/18/2022 - SINUS RHYTHM WITH 1ST DEGREE A-V BLOCK ^ PROLONGED QT ^ ABNORMAL ECG ^ COMPARED TO THE ECG OF 17-MAR-2022 03:37, ^ BORDERLINE CRITERIA FOR INFERIOR INFARCT ARE NO LONGER PRESENT ^ NONSPECIFIC T WAVE CHANGE HAS REPLACED INVERTED T WAVES IN INFERIOR LEADS Radiology past 24 hrs: No results found. Assessment & Plan Leoncio Rollins Jr. is a 47 y.o. male with Hematochezia. Medical problems being addressed in this encounter include the following: # Cardiovascular: #Mitral Valve Vegetation Mobile echodensity on posterior mitral annulus??(TTE 03/2022)??and has a history of MRSE vertebral osteomyelitis diagnosed end of 2019 and he completed 8 weeks of antibiotics.?? -Blood cultures x 3 NGTD after 48hrs -repeat SOCRATES outpatient once volume-controlled as outpatient ?? #HFpEF, NYHA class III #Pulm HTN, WHO II (maybe III w/ non-adherent CPAP) #Volume Overload?? TTE (03/2022): EF 45-50%, GIIDD, hypokanesis of basal-mid anteroseptal myocardium. Mobile echodensity on posterior mitral annulus. RV severely dilated, moderately reduced systolic function.??RHC consistent of volume overload. Dry weight 125 kg. Has been getting HD almost-daily, swan removed 03/21. Still significantly above dry weight ?? - will obtain to HD to 135 kg per renal (recs appreciated) - HTN management as below -discuss possibility of cardiomems v cartella during admission/as outpatient - follow-up w/ cardiology service in 1 month after discharge - d/t uncertain dry wt, can repeat RHC outpt when closer to euvolemic state. ?? #Uncontrolled??HTN - hydralazine 100mg q8h and lisinopril 40mg daily. - Continue home nifedipine 90mg BID -??Carvedilol 12.5 BID - Continue Imdur 60mg - Fluid removal with dialysis for goal of 135 kg. # Pulmonary: FiO2: [45 %] 45 % Patient Vitals for the past 4 hrs: O2 Device FiO2 03/23/22 0710 None (Room air) -- 03/23/22 0523 -- 45 % 03/23/22 0424 Bipap -- #JC Pt report intermittently using ??BiPAP at home and does not have it with him. - Nocturnal supplemental oxygen for SpO2 >88% - Continue BIPAP/AVAPS at night - Per RT, pt apneic and profoundly hypoxic on current CPAP settings. Needs settings changed prior to discharge. Social work to discuss finging new Bipap for patient at discharge. # Neurology, Pain, Sedation: - No acute issues. 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 Normal hepatic function panel. CTAP from OSH with hepatomegaly, periportal edema, and splenomegaly with EV and minimal ascites. INR 1.2. Abdominal USN unrevealing - cyclosporine level low -??Cellcept 250 BID,??cyclosporine 100 BID, and??Entacavir. ?? #Acute on chronic anemia 2/2 GIB Hgb 9 -> 8.6 on admit. Baseline hgb 9-10. Hx of multiple esophageal ulcers.??EGD from 2019 with reflux esophagitis, gastritis, and duodenitis. - Continue Protonix 40 BID - Continue iron tabs?? - Liver consulted: performed EGD/colon today - A small gastric ulcer was biopsied w/ need for pathology follow-up. - Vitamin 9 and 12 labs obtained; results pending. - Will repeat EGD in 8 weeks per GI recs; recs appreciated. - Will continue PPI PO BID - Pt would like to follow-up w/ GI here. - # Renal (Electrolytes, Acid/Base): # ESRD on HD MWF 2/2 diabetes, HTN and CNI use -??Nephrology following for HD; recs appreciated - will discuss increased K+, improved management - Monitor lytes and replete as needed Lab 03/23/22 0555 03/22/22 1451 03/22/22 0622 03/21/22 1219 03/21/22 0512 SODIUM 133 135 133 136 134 POTASSIUM 4.8 4.4 5.8* 4.6 5.5* CHLORIDE 97* 98 98 100 100 CO2 25 28 25 26 23 BUN 28* 21 37* 25 45* CREATININE 5.65* 4.36* 6.58* 5.05* 8.16* MAGNESIUM 1.9 1.8 1.9 -- 1.9 # Genitourinary: - No acute issues. # Infectious Disease: - No acute issues. # Endocrine: #Diabetic neuropathy #Type 2 Diabetes Mellitus - Hgb A1C 5.8 on 03/17 - SSI with meals - Gabapentin and Tegretol?? Lab 03/23/22 0003 03/22/22 1737 03/22/22 1320 03/22/22 0751 03/21/22 1647 03/21/22 1146 03/21/22 0839 03/20/22 1721 POC GLU MONITORING DEVICE 161* 174* 155* 138* 151* 169* 159* 124* # Hematology/Oncology: # Leukopenia Likely 2/2 cyclosporine, MMF, and carbamazepine. CTM.?? Lab 03/23/22 0555 03/22/22 0622 03/21/22 1153 03/21/22 0512 03/20/22 1728 03/20/22 0358 WBC 3.1* 3.0* -- 3.2* -- 3.4* HEMOGLOBIN BLOOD GAS -- -- 9.1* -- < > 8.9* HEMOGLOBIN 9.0* 8.3* -- 8.5* -- 8.8* HEMATOCRIT 26.8* 25.3* -- 25.5* -- 25.8* MEAN CORPUSCULAR VOLUME 100.0 101.1* -- 101.4* -- 102.2* PLATELETS 160 161 -- 161 -- 174 < > = values in this interval not displayed. # Psychiatry: - No acute issues. # Nutrition: Diet Orders Report Diet NPO past midnight Except for: for procedure starting at 03/22 2359 Code Status: Full Code DVT PPx: SQH TID. GI PPx: PPI. PT/OT: consulted; recs appreciated - PT Recs: Recommendation: Home with intermittent assistance Equipment Recommended: None - OT Recs: Recommendation: Home with PRN assist, No skilled OT Equipment Recommendations: Patient has needed bathroom DME (continue to assess for lower body dressing DME) - ARCHITECTURAL PROJECT CAPTAIN Recs: Signed: LAURA GONZALEZ CVICU Resident 03/23/2022, 8:08 AM Cosigned by Gabino Hong MD at 03/23/2022 2:38 PM EDT Associated attestation - Gabino Hong MD - 03/23/2022 2:38 PM EDT I saw and examined the patient on 03/23/22, and discussed the case with the resident and agree withthe findings and plan as documented in the resident???s note. Patient tolerated GI procedures and non-bleeding gastric ulcer found. Cont removal of fluid via dialysis per nephrology. Uncertain dry weight at this point (as low as 265 lbs in the last 6 months per patient). Patient will need OP followup with Dr. Schulte for repeat RHC and cardioMEMS placement in one month. May transfer to Renal or medicine team. * Earnest Plummer RN - 03/23/2022 7:54 AM EDT Pt resting in room. Scheduled for morning EGD. Discussed procedure with pt. Paged team related to concerns of medications prior to procedure. Team gave the okay to hold medications until after procedure. Will continue to monitor. -Earnest Plummer RN * Yareli Dominguez RN - 03/23/2022 4:50 AM EDT NPN Focus: NPO status D: Per MD order, patient is to be NPO after midnight for EGD/Colonoscopy. A: RN informed patient of NPO status. Food and drink offered to patient before midnight. Patient finished bowel prep prior to midnight. NPO status listed on white board at patient's bedside. R: Patient is calm & cooperative, resting in bed. Will continue to monitor. YARELI DOMINGUEZ RN * Stephan Sequeira MD - 03/22/2022 3:41 PM EDT Images from the original note were not included. Department of Internal Medicine Transplant Nephrology Consult Progress Note Patient: Leoncio Rollins Jr. Assessment: Renal Function: Cr: 7.56 Bun: 37 on 03/19/2022 #ESRD - Etiology: DM HTN - iHD MWF - EDW 136 (prior target weight in 10/2020 was 119kg) - Left AVF - Dr Enrique Albright [facility] Reportedly nearly completed his last HD session on 03/16/2022, with 40 minutes left. On HD MWF. - Hd today ?? #OLT 2018 - IS per hepatology (CsA and MMF) ?? Hemodynamics/CVS: BP: 182/70 - Meds: Doxazosin 8mg, Hydralazine 100mg TID, Nifedipine 90mg BID, Metoprolol Succ 100mg qhs ? Electrolytes: Na: 135 K: 4.3 Cl: 96 Ma.9 Ca: 8.0 Phos: 5.7 No current issues. #Hyperkalemia - to 5.6, hemolyzed Acid Base Status: Anion Gap: 12 Bicarb: 27 No current issues. Volume Status: Hypervolemic ?? Mineral Bone Disease: Ca: 8.0 PO4: 5.7 Alb: 4.0 PTH: 870.0 on 09/21/2021 Vit D: 15.8 on 01/14/2019 - Continue binders ?? Anemia of GIB: Hgb 8.2; 8.3 Hct 24.6 Plt 166 Iron 29 on 10/31/2021 Ferritin 826.6 on 10/31/2021 TIBC: 247 on 10/31/2021 Haptoglobin: 226 on 07/20/2019 LDH: 340 on 07/20/2019 Anemia 2/2 GIB. Hgb low, monitor for ongoing hemorrhaging. - EGD/C scope tomorrow ? General Recommendations: - Monitor urine output closely, strict I/O, daily weights. - Avoid nephrotoxins (NSAIDs, MADAN-I, ARB, Contrast dye) - Daily renal panel with phosphorus level. - Renally dose all medications. Plan: - HD today for voluem and K - Will challenge to new dry weight of 135 kg tomorrow after scopes Case discussed with consult attending. Please do not hesitate to give us a call for any questions. Stephan Sequeira Nephrology fellow Pager #: [phone] Reason for Consult ESRD on HD Chief Complaint No chief complaint on file. History of Present Illness Leoncio Rollins Jr. is a pleasant 47 y.o. 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 Patient presented on 03/16/2022 with GIB early in the am before his dialysis session. He reports he left his HD session 40 minutes before it completed. Later at home, he had a large BM without blood in it. He has had this happen before that was found to be d/t PUD. He otherwise receives HD routinely without difficulty. He has a LUE AVF, which he reports has low pressure and has been looking to have it evaluated by his surgeon outpatient. He reports his AVF still functions but may require evaluation in the near future. He reports feeling better after Tx in ED and deniesany f, c, headache, dizziness, chest pain, dyspnea, abd pain, n/v/d, malaise, or weakness. Interval History Patient was seen this am. BP today: 126/68. Creatinine today is 4.36. Seen on floor after HD. Patient inquiring about home PD or home HD. States he is at his dry weight and wants to challenge Review of Systems Constitutional: Negative. HENT: Negative. Eyes: Negative. Respiratory: Negative. Cardiovascular: Positive for leg swelling. Gastrointestinal: Negative. Genitourinary: Negative. Musculoskeletal: Negative. Skin: Negative. Neurological: Negative. Medications Current Facility-Administered Medications: ??? acetaminophen (TYLENOL) tablet 650 mg, 650 mg, Oral, Q4H PRN, Gabriel Booth MD, 650 mg at 03/22/22 1142 ??? carBAMazepine (TEGRETOL) tablet 200 mg, 200 mg, Oral, BID, Sherly Hawkins MD, 200 mg at 03/22/22 0841 ??? carvediloL (COREG) tablet 12.5 mg, 12.5 mg, Oral, BID WC, Dariela Wood MD, 12.5 mg at 03/22/22 1629 ??? cinacalcet (SENSIPAR) tablet 60 mg, 60 mg, Oral, Daily with breakfast, Grace DO Schuyler, 60 mg at 03/22/22 0842 ??? cycloSPORINE modified (NEORAL/GENGRAF) capsule 100 mg, 100 mg, Oral, BID, Grace DO Schuyler, 100 mg at 03/22/22 0842 ??? dextrose 10%-water (D10W) IV soln, 12.5 g, Intravenous, Q15 Min PRN OR dextrose 10%-water (D10W) IV soln, 25 g, Intravenous, Q15 Min PRN, Grace Payan DO ??? entecavir (BARACLUDE) tablet 0.5 mg, 0.5 mg, Oral, Q7 Days, Irina Craven MD, 0.5 mg at ??? [START ON 03/23/2022] epoetin giancarlo-epbx (RETACRIT) injection solution 5,000 Units, 5,000 Units, Intravenous, Once per day on Mon, Stephan Sequeira MD ??? fenofibrate tablet 160 mg, 160 mg, Oral, Daily 899, Grace Payan, DO, 160 mg at 03/22/22840 ??? folic acid (FOLVITE) tablet 1 mg, 1 mg, Oral, Daily 00, Grace Payan, DO, 1 mg at ??? gabapentin (NEURONTIN) capsule 800 mg, 800 mg, Oral, BID, Grace Payan, DO, 800 mg at 03/22/22 1322 ??? glucose chewable tablet 12 g, 12 g, Oral, Q15 Min PRN, Grace Payan DO ??? heparin (porcine) injection 5,000 Units, 5,000 Units, Subcutaneous, 3 times per day, Irina Craven MD ??? hydrALAZINE (APRESOLINE) tablet 100 mg, 100 mg, Oral, 3 times per day, Sherly Hawkins MD, 100 mg at 03/22/22 1628 ??? insulin lispro (humaLOG) injection 0-5 Units, 0-5 Units, Subcutaneous, TID AC, Dariela Wood MD, 1 Units at 03/21/22 1717 ??? isosorbide mononitrate (IMDUR) 24 hr tablet 60 mg, 60 mg, Oral, Daily 899, Irina Craven MD, 60mg at 03/22/22 0842 ??? lisinopriL (PRINIVIL) tablet 40 mg, 40 mg, Oral, Daily 899, Sherly Hawkins MD, 40 mg at 03/22/22840 ? ? methocarbamoL (ROBAXIN) tablet 500 mg, 500 mg, Oral, 4x Daily AC & HS, Grace Payan DO,500 mg at 03/22/22 1630 ??? montelukast (SINGULAIR) tablet 10 mg, 10 mg, Oral, Daily 899, Gracesara Payan DO, 10 mg at 03/22/22840 ??? mycophenolate (CELLCEPT) capsule 250 mg, 250 mg, Oral, BID, Grace Payan DO, 250 mg at 08/09/22 0841 ??? NIFEdipine (PROCARDIA-XL) 24 hr tablet 90 mg, 90 mg, Oral, BID, Neyda Espinoza MD, 90 mg at 03/22/22 0841 ??? oxyCODONE-acetaminophen (PERCOCET) 5-325 mg per tablet 1 tablet, 1 tablet, Oral, Q4H PRN, Gabriel Booth MD, 1 tablet at 03/22/22 1456 ??? pantoprazole (PROTONIX) injection 40 mg, 40 mg, Intravenous, BID6, Grace DO Schuyler, 40 mg at 03/22/22 1647 ??? peppermint oiL liquid 1 mL, 1 mL, MISCELLANEOUS, PRN, Neyda Espinoza MD ??? polyethylene glycol (MIRALAX) packet 238 g, 238 g, Oral, Daily 0900, Wilmer Hoyos MD, 238 g at 03/22/22 1631 ??? sevelamer carbonate (RENVELA) tablet 1,600 mg, 1,600 mg, Oral, TID WC, Grace DO Schuyler, 1,600 mg at 03/22/22 1629 ??? Place saline lock, , , Once AND sodium chloride flush 10 mL, 10 mL, Intravenous, QS, Grace DO Schuyler, 10 mL at 03/22/22 1319 ??? terazosin (HYTRIN) capsule 10 mg, 10 mg, Oral, Nightly (2100), Grace DO Schuyler, 10 mg at 03/21/222036 Physical Examination Vitals: 03/22/22 1600 BP: Pulse: 67 Resp: Temp: SpO2: Patient Vitals for the past 4 hrs: BP Temp Temp src Pulse Resp SpO2 03/22/22 1600 -- -- -- 67 -- -- 03/22/22 1519 126/68 98.2 ??F (36.8 ??C) Oral 69 24 99 % 03/22/22 1500 -- -- -- 76 -- -- 03/22/22 1400 -- -- -- 74 -- -- Wt Readings from Last 3 Encounters: 03/21/22 (!) 307 lb 6.4 oz (139.4 kg) 12/22/21 (!) 299 lb 1.6 oz (135.7 kg) 09/21/21 (!) 274 lb (124.3 kg) Intake/Output Summary (Last 24 hours) at 03/22/2022 1730 Last data filed at 03/22/2022 1458 Gross per 24 hour Intake 1300 ml Output 4006 ml Net -2706 ml Physical Exam Constitutional: General: He is not in acute distress. Appearance: He is obese. He is ill-appearing. Comments: Obese mael in bed HENT: Head: Normocephalic. Nose: Nose normal. Mouth/Throat: Mouth: Mucous membranes are moist. Pharynx: Oropharynx is clear. Eyes: General: No scleral icterus. Conjunctiva/sclera: Conjunctivae normal. Pupils: Pupils are equal, round, and reactive to light. Cardiovascular: Rate and Rhythm: Regular rhythm. Tachycardia present. Pulses: Normal pulses. Heart sounds: Normal heart sounds. Pulmonary: Effort: Pulmonary effort is normal. No respiratory distress. Breath sounds: Normal breath sounds. Abdominal: General: There is no distension. Palpations: Abdomen is soft. Tenderness: There is no abdominal tenderness. Musculoskeletal: Right lower leg: Edema present. Left lower leg: Edema present. Skin: General: Skin is warm and dry. Neurological: General: No focal deficit present. Mental Status: He is oriented to person, place, and time. Mental status is at baseline. Laboratory Date Recent Labs 03/20/22 0358 03/20/22 1728 03/21/22 0512 03/21/22 1153 03/22/22 0622 WBC 3.4* -- 3.2* -- 3.0* HGB 8.9* 8.8* < > 8.5* 9.1* 8.3* HCT 25.8* -- 25.5* -- 25.3* MCV 102.2* -- 101.4* -- 101.1* PLT 174 -- 161 -- 161 < > = values in this interval not displayed. Recent Labs 03/21/22 0512 03/21/22 1219 03/22/22 0622 03/22/22 1451 NA 134 136 133 135 K 5.5* 4.6 5.8* 4.4 CL 100 100 98 98 CO2 23 26 25 28 BUN 45* 25 37* 21 CREATININE 8.16* 5.05* 6.58* 4.36* GLUCOSE 108* 153* 123* 191* CALCIUM 8.5* 8.9 8.4* 8.7 MG 1.9 -- 1.9 1.8 PHOS 5.3* -- 3.7 2.5 ANIONGAP 11 10 10 9 Recent Labs 03/21/22 0512 03/21/22 1219 03/22/22 0622 03/22/22 1451 CALCIUM 8.5* 8.9 8.4* 8.7 PHOS 5.3* -- 3.7 2.5 Lab Results Component Value Date IRON 29 (L) 10/31/2021 TIBC 247 (L) 10/31/2021 FERRITIN 826.6 (H) 10/31/2021 Lab Results Component Value Date [id number] 1,355 (H) 10/31/2021 Lab Results Component Value Date COLORU Yellow 07/20/2019 CLARITYU Cloudy (A) 07/20/2019 PROTEINUA >=500 (A) 07/20/2019 PHUR 6.0 07/20/2019 LABSPEC 1.017 07/20/2019 GLUCOSEU 150 (A) 07/20/2019 BLOODU Small (A) 07/20/2019 LEUKOCYTESUR Negative 07/20/2019 NITRITE Negative 07/20/2019 BILIRUBINUR Negative 07/20/2019 UROBILINOGEN <2.0 07/20/2019 RBCUA 6 (H) 07/20/2019 WBCUA 1 07/20/2019 BACTERIA Few (A) 07/20/2019 No results for input(s): NAUR, KUR, CLUR in the last 72 hours. Invalid input(s): CO2UR, CRUR No results found for: MICROALBUR, [id number] In addition to the above an extensive amount of complex data in the patients lab and chart were reviewed. Diagnostic Imaging Reviewed in EMR. This note was completely edited, written and [...] current evaluation and management for this patient. Cosigned by Sandra Carranza MD at 03/22/2022 11:01 PM EDT Associated attestation - Sandra Carranza MD - 03/22/2022 11:01 PM EDT I have seen and examined the patient, reviewed the labs, notes, assessments, and/or procedures performed by the fellow physician and I agree with the documented findings and plan of care. 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 Clear liquid diet today, NPO at midnight. Miralax bowel prep ordered with dulcolax. * Irina Craven MD - 03/22/2022 7:49 AM EDT Department of Internal Medicine CVICU Progress Note Patient: Leoncio Rollins Jr. Date: 03/22/2022, 7:40 AM Location: [id number] LOS: 4 days Attending: Ana Mercado MD Subjective Leoncio Rollins ??is a 47 y.o.??male??with PMHx OLT in 2018 2/2 SLA cirrhosis,??ESRD on HD MWF,??HFintEF (45-50%) w/ Diastolic Dysfunction, WHO II Pulm HTN, presents with GIB Past 24 hrs: -HD yesterday; swan numbers following: CVP 18, PAP 56/28 (38), SvO2 67.1, CI 3.82. Strawberry and a-line removed. Transferred to floor. -VS: Afebrile, HR 69-82s, SBP 125-162/66-87 -weight 306 (03/18) -> 311 (03/21) -> pending weight from HD -I/O 6000/55102 net negative 6.5 -Labs: sodium 133, K 5.8, BUN 37 and Cr 6.58. WBC 3.0 and Hgb 8.3 Brief Daily Plan ?? HD today ?? Discuss with renal plan for K+, especially with possible scope tomorrow ?? Renal daniel team capped without potential discharges, will continue to monitor for possible transfer I/Os Intake/Output Summary (Last 24 hours) at 03/22/2022 0740 Last data filed at 03/21/2022 1800 Gross per 24 hour Intake 780 ml Output 4900 ml Net -4120 ml Vital Signs Temp: [97.5 ??F (36.4 ??C)-98.2 ??F (36.8 ??C)] 98.1 ??F (36.7 ??C) Heart Rate: [69-82] 74 Resp: [15-18] 18 BP: (125-162)/(66-87) 125/66 FiO2: [45 %] 45 % Physical Exam GENERAL:??morbidly obese male, lying comfortably in bed HENT: normocephalic, atraumatic, moist mucous membranes EYES: PERRLA, EOMI, sclera anicteric CV: normal rate and regular rhythm,??DP??pulses palpated, <2 sec cap refill, 2+ LE edema LUNGS: bibasilar crackles, very thick neck ABDOMEN:??soft, TTP in epigastric region and RLQ, incisional hernia, surgery scar MSK: moves all extremities, no joint swelling. Left forearm fistula +thrill SKIN: warm, dry and intact, no new lesions, no jaundice NEURO: AAOx4, follows commands, speech clear and fluent Medications Scheduled Meds: ??? calcium acetate(phosphat bind) 667 mg Oral TID WC ??? carBAMazepine 200 mg Oral BID ??? carvediloL 12.5 mg Oral BID WC ??? cinacalcet 60 mg Oral Daily with breakfast ??? cycloSPORINE modified 100 mg Oral BID ??? fenofibrate 160 mg Oral Daily 0900 ??? folic acid 1 mg Oral Daily 0900 ??? gabapentin 800 mg Oral BID ??? hydrALAZINE (APRESOLINE) oral tablet 100 mg Oral 3 times per day ??? insulin lispro 0-5 Units Subcutaneous TID AC ??? isosorbide mononitrate 60 mg Oral Daily 0900 ??? lisinopriL 40 mg Oral Daily 0900 ? ? methocarbamoL 500 mg Oral 4x Daily AC & HS ??? montelukast 10 mg Oral Daily 0900 ??? mycophenolate 250 mg Oral BID ??? NIFEdipine 90 mg Oral BID ??? pantoprazole (PROTONIX) IV 40 mg Intravenous BID6 ??? sevelamer carbonate 1,600 mg Oral TID WC ??? sodium chloride 10 mL Intravenous QS ??? terazosin 10 mg Oral Nightly (2099) PRN Meds: acetaminophen, dextrose 10% in water OR dextrose 10% in water, glucose, oxyCODONE-acetaminophen, peppermint oiL Drips: Labs Pertinent labs listed in plan below. All other labs reviewed in Epic. Diagnostic Studies No new. Assessment & Plan Leoncio Rollins Jr. is a 47 y.o. male with Hematochezia. Medical problems being addressed in this encounter include the following: ?? Cardiovascular ?? #Mitral Valve Vegetation Mobile echodensity on posterior mitral annulus (TTE 03/2022) and has a history of MRSE vertebral osteomyelitis diagnosed end of 2019 and he completed 8 weeks of antibiotics. -Blood cultures x 3 NGTD after 48hrs -repeat TTE outpatient once volume-controlled as outpatient ?? #HFpEF, NYHA class III #Pulm HTN, WHO II (maybe III w/ non-adherent CPAP) #Volume Overload TTE (03/2022): EF 45-50%, GIIDD, hypokanesis of basal-mid anteroseptal myocardium. Mobile echodensity on posterior mitral annulus. RV severely dilated, moderately reduced systolic function. RHC consistent of volume overload. Dry weight 125 kg. Has been getting HD almost-daily, swan removed 03/21. Still significantly above dry weight -HD today for continued fluid removal, per last renal note considering CRRT if HD limited by cramping -HTN management as below -discuss possibility of cardiomems v cartella during admission/as outpatient ?? #Uncontrolled??HTN - hydralazine 100mg q8h and lisinopril 40mg daily. - Continue home nifedipine 90mg BID - Carvedilol 12.5 BID - Add Imdur 60mg - Fluid removal with dialysis ?? Neurology ? Pulmonology ?? #JC Pt report intermittently using ??BiPAP at home and does not have it with him. - Nocturnal supplemental oxygen for SpO2 >88% - Continue BIPAP/AVAPS at night - Per RT, pt apneic and profoundly hypoxic on current CPAP settings. Needs settings changed prior to discharge. Social work to discuss finging new Bipap for patient at discharge. ?? Gastrointestinal ?? 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 Normal hepatic function panel. CTAP from OSH with hepatomegaly, periportal edema, and splenomegaly with EV and minimal ascites. INR 1.2. Abdominal USN unrevealing - cyclosporine level low -??Cellcept 250 BID,??cyclosporine 100 BID, and??Entacavir. #Acute on chronic anemia 2/2 GIB Hgb 9 -> 8.6 on admit. Baseline hgb 9-10. Hx of multiple esophageal ulcers. EGD from 2019 with reflux esophagitis, gastritis, and duodenitis. - Continue Protonix 40 BID - Continue iron tabs - Liver consulted: plan for EGD/colon tomorrow, pending control of K+ (will speak with renal.) Willlikely prep with miralax given K+ content of Golytely. ?? Renal/Acid-Base ?? # ESRD on HD MWF 2/2 diabetes, HTN and CNI use -??Nephrology following for HD - will discuss increased K+, improved management - Monitor lytes and replete as needed ?? Endocrine #Diabetic neuropathy #Type 2 Diabetes Mellitus - Hgb A1C 5.8 on 03/17 - SSI with meals - Gabapentin and Tegretol? Hematology/Oncology # Leukopenia Likely 2/2 cyclosporine, MMF, and carbamazepine. CTM.? Psychiatry DVT Prophylaxis: SCDs GI Prophylaxis: PPI PT/OT: ordered Code Status: Full Code Disposition: floor, renal daniel team full Signed: IRINA CRAVEN MD 03/22/2022, 7:40 AM Cosigned by Gabino Hong MD at 03/22/2022 10:21 PM EDT Associated attestation - Gabino Hong MD - 03/22/2022 10:21 PM EDT 47 y.o. male with PMHx of morbid obesity, HTN, DM, OLT in 2018 2/2 SAL cirrhosis, ESRD on HD MWF, HTN heart disease with mod LVH/g2dd, WHO II Pulm HTN presented with GI bleeding and grossly volume overloaded. I saw and examined the patient on 03/22/22, and discussed the case with the resident and agree withthe findings and plan as documented in the resident???s note. Blood pressure well controlled. Plan for EGD/colonoscopy tomorrow per GI. Patient remains volume overloaded requiring daily dialysis withvolume removal. Patient wishes to explore home diaylysis with renal service. Transfer to nephrologyor medicine service in am. * Nicole Keen RN - 03/21/2022 6:30 PM EDT Report given to 6S RN. Pt put on tele box and CMU notified. Pt to 6232 via wheelchair and all personal belongings. VSS at this time. * Chrissie Shipley RD - 03/21/2022 4:42 PM EDT [facility] Medical Nutrition Therapy Reason(s) for Completion: Nutrition Services Protocol (ICU nutrition screen) Diet Order/Nutrition Support: Cardiac no concentrated carbohydrates Pertinent Information: Leoncio Rollins Jr is a 47 y.o.??male??with PMHx OLT in 2018 2/2 SAL cirrhosis,??ESRD on HD MWF,??HFintEF (45-50%) w/ Diastolic Dysfunction, WHO II Pulm HTN, presents with GIB. He received iHD today. Pt currently on a cardiac no concentrated carbohydrates diet. PO intakes from meals have ranged from 100% consistently this admission for meals recorded. Per chart review, pt metwith outpatient kidney transplant RD in September and met with outpatient bariatric RD in December of this year. Weight currently 311 lbs. Last BM recorded on 03/21. Patient Active Problem List Diagnosis ??? Essential [...] for kidney transplant ??? Hematochezia Past Medical History: Diagnosis Date ??? Acute [...] osteomyelitis (CMS Dx) ??? Vitamin D deficiency Scheduled Meds: ??? calcium acetate(phosphat bind) 667 mg Oral TID WC ??? carBAMazepine 200 mg Oral BID ??? carvediloL 12.5 mg Oral BID WC ??? cinacalcet 60 mg Oral Daily with breakfast ??? cycloSPORINE modified 100 mg Oral BID ??? fenofibrate 160 mg Oral Daily 0900 ??? folic acid 1 mg Oral Daily 0900 ??? gabapentin 800 mg Oral BID ??? hydrALAZINE (APRESOLINE) oral tablet 100 mg Oral 3 times per day ??? insulin lispro 0-5 Units Subcutaneous TID AC ??? isosorbide mononitrate 60 mg Oral Daily 0900 ??? lisinopriL 40 mg Oral Daily 0900 ? ? methocarbamoL 500 mg Oral 4x Daily AC & HS ??? montelukast 10 mg Oral Daily 0900 ??? mycophenolate 250 mg Oral BID ??? NIFEdipine 90 mg Oral BID ??? pantoprazole (PROTONIX) IV 40 mg Intravenous BID6 ??? sevelamer carbonate 1,600 mg Oral TID WC ??? sodium chloride 10 mL Intravenous QS ??? terazosin 10 mg Oral Nightly (2099) Continuous Infusions: PRN Meds:acetaminophen, dextrose 10% in water OR dextrose 10% in water, glucose, oxyCODONE-acetaminophen, peppermint oiL Pertinent Labs: Lab Results Component Value Date CREATININE 5.05 (H) 03/21/2022 BUN 25 03/21/2022 NA 136 03/21/2022 K 4.6 03/21/2022 CL 100 03/21/2022 CO2 26 03/21/2022 Lab Results Component Value Date PTH 870.0 (H) 09/21/2021 CALCIUM 8.9 03/21/2022 PHOS 5.3 (H) 03/21/2022 Lab Results Component Value Date MG 1.9 03/21/2022 Lab Results Component Value Date GLUCOSE 153 (H) 03/21/2022 Lab Results Component Value Date WBC 3.2 (L) 03/21/2022 Lab Results Component Value Date ALBUMIN 4.0 03/21/2022 Lab Results Component Value Date PREALBUMIN 20.0 06/09/2020 Lab Results Component Value Date CRP 14.3 (H) 09/03/2020 Temp (24hrs), Av.5 ??F (36.4 ??C), Min:96.8 ??F (36 ??C), Max:97.7 ??F (36.5 ??C) FiO2: [45 %] 45 % Skin Integrity: scattered bruising GI: +BM 03/21 Potential Nutrition Related Factor(s): Food Allergies/Intolerances: nkfa Cultural Requests: none 47 y.o. Male Ht Readings from Last 1 Encounters: 03/19/22 5' 9 (1.753 m) Wt Readings from Last 10 Encounters: 03/21/22 (!) 311 lb 4.6 oz (141.2 kg) 12/22/21 (!) 299 lb 1.6 oz (135.7 kg) 09/21/21 (!) 274 lb (124.3 kg) 08/26/21 (!) 263 lb 7.2 oz (119.5 kg) 07/15/21 (!) 266 lb 12.8 oz (121 kg) 06/24/21 (!) 263 lb (119.3 kg) 05/28/21 (!) 268 lb (121.6 kg) 01/12/21 (!) 268 lb 1.3 oz (121.6 kg) 10/15/20 (!) 268 lb (121.6 kg) 07/14/20 (!) 268 lb (121.6 kg) Body mass index is 45.97 kg/m??. BMI Class: morbidly obese Usual Weight: see weight hx above [place] Body Weight (+/- 10%): 160 lbs +/- 10% Estimated Nutrition Needs: Needs based On: 72.7 kg IBW Kcals/day: 7084-2336 kcals (30-35 kcals/kg IBW) Protein g/day: 145-181 grams (2-2.5 grams/kg IBW) Carbohydrate g/day: 60-75 grams per meal Fluid ml/day: ~1 ml/kcal or per MD order Nutrition Related Problems: Nutrition Diagnosis: Increased Nutrient Needs Related To: metabolic demand As Evidenced By: pt with ESRD on iHD Recommended Interventions: Monitor PO Intake/Tolerance Goals: Total energy intake improved as evidenced by PO intake at least 75-100% of meals/supplements/snacks within 3 days Nutrition Status Classification: Moderately Compromised Nutrition Discharge Planning: ongoing pending pt's clinical course Follow up per policy while inpatient Recommendation(s) to provider: ?? Monitor/encourage po intake from meals on current diet and follow diet guidelines for renal/diabetic diets Chrissie Hanna RD, LD Clinical Dietitian-CVICU/6S Please reach out via [employer] secure chat for questions/concerns Pager: [phone] * Ayde Segura OT - 03/21/2022 3:20 PM EDT Occupational Therapy Initial Assessment Name: Leoncio Oviedo Eh Marques : 1975 Attending Physician: Ana Mercado MD Admission Diagnosis: Hematochezia [K92.1] Date: 03/21/2022 Room: CVIC25/CVIC25 Reviewed Pertinent hospital course: Yes Hospital Course PT/OT: 47 yo M presented to an OSH with complaint of blood in stool. CT performed at the OSH suggestive of PUD, also with hepatomegaly, periportal edema, and splenomegaly with EV and minimal ascites. Found to be hypertensive in ED. Transferred to [facility] for further evaluation, concernfor rejection and GI bleed. RHC 03/18 demonstrated severe volume overload, transferred to CVICU for SWAN guided diuresis. Relevant PMH : OLT in 2018 09/15 SAL cirrhosis, ESRD on HD, pHTN, HFrEF, JC Precautions: no limitations Activity Level: Activity as tolerated Aide: none Recommendation Recommendation: Home with PRN assist, No skilled OT Equipment Recommendations: Patient has needed bathroom DME (continue to assess for lower body dressing DME) Assessment Assessment: Decreased activity tolerance, Decreased Functional Mobility, Decreased ADL status, Decreased self-care transfers Prognosis for OT goals: Good Outcome Measures AM-PAC 6 Clicks Daily Activity Inpatient Short Form: OT 6 Clicks Score: 18 Home Living/Prior Function Patient able to provide accurate information at this time: Yes Lives With: Spouse (2 sons) Assistance available: 24 hour supervision Type of Home: House Home Entry: Ramped entrance Home Layout: One level Bathroom Shower/Tub: Walk-in shower Bathroom Toilet: Standard Bathroom Equipment: Shower chair Home Equipment: Single-point cane, Bedside commode, Wheelchair-manual, Rollator Prior Function Functional Mobility: Independent ( no assistive device) Receives Help From: None needed prior to admission ADL Assistance: Needs assistance (reports only recently needing assistance 2/2 volume overload) Needs assistance with: Dressing (lower body dressing (gets SOB)) IADL Assistance: patient does not complete Comments: reports R foot drop at baseline (since ~2018), has brace for shoe but does not wear it Pain Pain Score: 5 Pain Location: Abdomen (sides, neck) Pain Intervention(s): Ambulation/increased activity;Emotional support Therapist reported pain to: RN Cognition Overall Cognitive Status: Within Functional Limits Cognitive Assessment: Arousal/ Alertness;Orientation Level;Behavior;Following Commands Arousal/Alertness: Alert Orientation Level: Oriented X4 Behavior: Appropriate;Cooperative Following Commands: Follows all commands and directions without difficulty Vision Overall Vision/ Perception: Within Functional Limits Right Upper Extremity Right UE ROM: Grossly WFL as observed during functional activities Right UE Strength: Grossly WFL (at least 3+/5) as observed during functional activities Right UE Muscle Tone: Normal Right Hand Function: Grossly WFL as observed during functional activity Right Hand Dominant: Yes Left Upper Extremity Left UE ROM: Grossly WFL as observed during functional activities Left UE Strength: Grossly WFL (at least 3+/5) as observed during functional activities Left UE Muscle Tone: Normal Left UE Hand Function: Grossly WFL as observed during functional activites Neuromuscular Overall Sensation: Impaired Additional Comments: neuropathy B feet Functional Mobility Bed Mobility Supine to Sit: Stand by assistance;head of bed elevated;use of handrail;towards the left Sit to Supine: Stand by assistance;towards the right Transfers Sit to Stand: Stand by assistance (from EOB and toilet) Toilet Transfers: Stand by assistance;grab bar Functional Mobility: Stand by assistance (no DME, no LOB, R foot drop at baseline) Balance Sitting - Static: Independent Sitting-Dynamic: Independent Standing-Static: Stand by assistance Standing-Dynamic: Stand by assistance ADL Toileting: Total assistance Toileting Deficit: Grab bar use;Toileting hygiene Location Assessed Toileting: Toilet Toileting Deficit Additional Comments: assist with timothy care after bowel movement (difficulty wiping 2/2 lines & SWAN R side) Position after Treatment/Safety Handoff Position after therapy session: Bed Details: RN notified;visitor present;Call light/ needs within reach Alarms: Bed Alarms Status: Unchanged from previous setting Plan Plan Treatment Interventions: Continued evaluation, Activity Tolerance training, ADL retraining, Equipment eval/education, Patient/Family training, Functional transfer training, Therapeutic Activity, Compensatory technique education, Excercise OT Frequency: minimum 2x/week The plan of care and recommendations assesses the patient's and/or caregiver's readiness, willingness, and ability to provide or support functional mobility and ADL tasks as needed upon discharge. Goals Goals to be met in: 1 week Patient stated goal: to increase activity Patient will complete supine to sit in prep for ADLs: Independent (with HOB flat) Patient will complete toilet transfer: Independent Patient will complete toileting: Independent Patient will complete lower body dressing: Will tolerate assessment (using AE PRN) Pt Will tolerate completeing ADLs with pain less than 4/10: . Miscellaneous Goal #1: Patient will tolerate showering assessment Jail Goal : STG Collaborated with: Patient, Family Patient/Family Education Educated patient on the role of occupational therapy, OT goals, OT plan of care, discharge recommendation, the importance of safety and the importance of increased activity and fall prevention strategies including need for supervision/ assistance with OOB activity and use of call light. patient verb alized understanding and demonstrated understanding. OT Time Start Time: 1404 Stop Time: 1435 Time Calculation (min): 31 min OT Charges $OT Evaluation Mod Complex 45 Min: 1 Procedure Problem List Patient Active [...] ??? ABDOMINAL SURGERY ??? BACK SURGERY 04/2020 [facility] ??? CREATION AV FISTULA ??? ESOPHAGOGASTRODUODENOSCOPY N/A [...] 04/2017 ??? TYMPANOSTOMY TUBE PLACEMENT 07/2020 * Annie Aden, PT - 03/21/2022 2:47 PM EDT Physical Therapy Initial Assessment Name: Leoncio Rollins : 1975 Attending Physician: Ana Mercado MD Admission Diagnosis: Hematochezia [K92.1] Date: 03/21/2022 Room: CVIC25/CVIC25 Reviewed Pertinent hospital course: Yes Hospital Course PT/OT: 47 yo M presented to an OSH with complaint of blood in stool. CT performed at the OSH suggestive of PUD, also with hepatomegaly, periportal edema, and splenomegaly with EV and minimal ascites. Found to be hypertensive in ED. Transferred to [facility] for further evaluation, concernfor rejection and GI bleed. RHC 03/18 demonstrated severe volume overload, transferred to CVICU for SWAN guided diuresis. Relevant PMH : OLT in 2018 09/15 SAL cirrhosis, ESRD on HD, pHTN, HFrEF, JC Precautions: no limitations Activity Level: Activity as tolerated Assessment Assessment: Impaired Bed Mobility, Impaired Transfers, Impaired Gait Prognosis: Good Leoncio required SBA for supine to sit, sit to stand, and to ambulate in the hallway with no AD. Recommendation Recommendation: Home with intermittent assistance Equipment Recommended: None Outcome Measures AM-PAC 6 Clicks Basic Mobility Inpatient Short Form: PT 6 Clicks Score: 19 Mobility Recommendations for Staff Patient ability: Patient ambulates in hallway Assist needed: with 1 person assist Home Living/Prior Function Patient able to provide accurate information at this time: Yes Lives With: Spouse (2 sons) Assistance available: 24 hour supervision Type of Home: House Home Entry: Ramped entrance Home Layout: One level Bathroom Shower/Tub: Walk-in shower Bathroom Toilet: Standard Bathroom Equipment: Shower chair Home Equipment: Single-point cane;Bedside commode;Wheelchair-manual;Rollator Prior Function Functional Mobility: Independent ( no assistive device) Receives Help From: None needed prior to admission ADL Assistance: Needs assistance Needs assistance with: Dressing (lower body dressing (gets SOB)) IADL Assistance: patient does not complete Pain Pain Score: 5 Pain Location: Abdomen (sides, neck) Pain Intervention(s): Ambulation/increased activity;Emotional support Therapist reported pain to: RN Vision Vision/Perception Overall Vision/ Perception: Within Functional Limits Cognition Overall Cognitive Status: Within Functional Limits Cognitive Assessment: Arousal/ Alertness;Orientation Level;Behavior;Following Commands Arousal/Alertness: Alert Orientation Level: Oriented X4 Behavior: Appropriate;Cooperative Following Commands: Follows all commands and directions without difficulty Neuromuscular Overall Sensation: Impaired Additional Comments: neuropathy B feet Upper Extremity UE Assessment: Defer to OT evaluation for formal assessment Lower Extremity Lower Extremity LE Assessment: Strength WFL (at least 3+/5) as observed during functional activity;ROM grossly WFL Functional Mobility Bed Mobility Supine to Sit: Stand by assistance;towards the left;head of bed elevated Sit to Supine: Stand by assistance;towards the right;head of bed flat Transfers Sit to Stand: Stand by assistance Stand to Sit: Stand by assistance Gait Distance (in feet): ~75' Level of assistance: Stand By assistance Assistive Device: None Gait Characteristics: R decreased step length;L decreased step length;decreased anand (R foot drop) Balance Sitting - Static: Independent Sitting-Dynamic: Independent Standing-Static: Stand by assistance Standing-Dynamic: Stand by assistance Position after Therapy/Safety Handoff Position after treatment and safety handoff Position after therapy session: Bed Details: RN notified;Call light/ needs within reach;visitor present Alarms: Bed Alarms Status: Unchanged from previous setting Goals Goals to be met by: 03/30/22 Patient will transition from supine to sit: Independent Patient will transition from sit to supine: Independent Patient will transfer from sit to stand: Independent Patient will ambulate: Independent, distance (in feet), with assistive device Distance (in feet): 100' [employer] Goal : =STG Patient/Family Education Educated patient on the role of physical therapy, goals, plan of care, importance of increased activity and discharge recommendations and fall prevention strategies, including need for supervision/ assistance with OOB activity and use of call light; patient verbalized understanding and demonstratedunderstanding. Plan Plan Treatment/Interventions: Gait training, Therapeutic Exercise, Therapeutic Activity, Patient/family training PT Frequency: minimum 2x/week The plan of care and recommendations assesses the patient's and/or caregiver's readiness, willingness, and ability to provide or support functional mobility and ADL tasks as needed upon discharge. Time Start Time: 1404 Stop Time: 1435 Time Calculation (min): 31 min Charges $PT Evaluation Mod Complex 30 [...] ??? ABDOMINAL SURGERY ??? BACK SURGERY 04/2020 [facility] ??? CREATION AV FISTULA ??? ESOPHAGOGASTRODUODENOSCOPY N/A [...] 04/2017 ??? TYMPANOSTOMY TUBE PLACEMENT 07/2020 * Stephan Sequeira MD - 03/21/2022 12:36 PM EDT Images from the original note were not included. Department of Internal Medicine Transplant Nephrology Consult Progress Note Patient: Leoncio Rollins Jr. Assessment: Renal Function: Cr: 7.56 Bun: 37 on 03/19/2022 #ESRD - Etiology: DM HTN - iHD MWF - EDW 136 (prior target weight in 10/2020 was 119kg) - Left AVF - Dr Enrique Albright [facility] Reportedly nearly completed his last HD session on 03/16/2022, with 40 minutes left. On HD MWF. - 4.9 L out today ?? #OLT 2018 - IS per hepatology (CsA and MMF) ?? Hemodynamics/CVS: BP: 182/70 - Meds: Doxazosin 8mg, Hydralazine 100mg TID, Nifedipine 90mg BID, Metoprolol Succ 100mg qhs ? Electrolytes: Na: 135 K: 4.3 Cl: 96 Ma.9 Ca: 8.0 Phos: 5.7 No current issues. Acid Base Status: Anion Gap: 12 Bicarb: 27 No current issues. Volume Status: Hypervolemic ?? Mineral Bone Disease: Ca: 8.0 PO4: 5.7 Alb: 4.0 PTH: 870.0 on 09/21/2021 Vit D: 15.8 on 01/14/2019 - Continue binders ?? Anemia of GIB: Hgb 8.2; 8.3 Hct 24.6 Plt 166 Iron 29 on 10/31/2021 Ferritin 826.6 on 10/31/2021 TIBC: 247 on 10/31/2021 Haptoglobin: 226 on 07/20/2019 LDH: 340 on 07/20/2019 Anemia 2/2 GIB. Hgb low, monitor for ongoing hemorrhaging. ? General Recommendations: - Monitor urine output closely, strict I/O, daily weights. - Avoid nephrotoxins (NSAIDs, MADAN-I, ARB, Contrast dye) - Daily renal panel with phosphorus level. - Renally dose all medications. Plan: - tolerated HD well today, shailesh consider UF only tomorrow - OP scripts for iron, EPO Case discussed with consult attending. Please do not hesitate to give us a call for any questions. Stephan Sequeira Nephrology fellow Pager #: [phone] Reason for Consult ESRD on HD Chief Complaint No chief complaint on file. History of Present Illness Leoncio Rollins Jr. is a pleasant 47 y.o. 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 Patient presented on 03/16/2022 with GIB early in the am before his dialysis session. He reports he left his HD session 40 minutes before it completed. Later at home, he had a large BM without blood in it. He has had this happen before that was found to be d/t PUD. He otherwise receives HD routinely without difficulty. He has a LUE AVF, which he reports has low pressure and has been looking to have it evaluated by his surgeon outpatient. He reports his AVF still functions but may require evaluation in the near future. He reports feeling better after Tx in ED and deniesany f, c, headache, dizziness, chest pain, dyspnea, abd pain, n/v/d, malaise, or weakness. Interval History Patient was seen this am. BP today: 151/67. Creatinine today is 8.16. Seen on HD. CVP 18,19. Patient eating breakfast. No complaints currently Review of Systems Constitutional: Negative. HENT: Negative. Eyes: Negative. Respiratory: Negative. Cardiovascular: Positive for leg swelling. Gastrointestinal: Negative. Genitourinary: Negative. Musculoskeletal: Negative. Skin: Negative. Neurological: Negative. Medications Current Facility-Administered Medications: ??? acetaminophen (TYLENOL) tablet 650 mg, 650 mg, Oral, Q4H PRN, Gabriel Booth MD, 650 mg at 03/18/22 1153 ??? calcium acetate(phosphat bind) (PHOSLO) capsule 667 mg, 667 mg, Oral, TID , Grace Payan DO, 667 mg at 03/21/22 1218 ??? carBAMazepine (TEGRETOL) tablet 200 mg, 200 mg, Oral, BID, Sherly Hawkins MD, 200 mg at 03/21/22 0930 ??? carvediloL (COREG) tablet 12.5 mg, 12.5 mg, Oral, BID , Dariela Wood MD, 12.5 mg at 03/21/22 0929 ??? cinacalcet (SENSIPAR) tablet 60 mg, 60 mg, Oral, Daily with breakfast, Grace Schuyler, DO, 60 mg at 03/21/22930 ??? cycloSPORINE modified (NEORAL/GENGRAF) capsule 100 mg, 100 mg, Oral, BID, Grace Payan, DO, 100 mg at 03/21/2231 ??? dextrose 10%-water (D10W) IV soln, 12.5 g, Intravenous, Q15 Min PRN OR dextrose 10%-water (D10W) IV soln, 25 g, Intravenous, Q15 Min PRN, Grace Payan, DO ??? fenofibrate tablet 160 mg, 160 mg, Oral, Daily 0900, Grace Payan, DO, 160 mg at 03/21/22930 ??? folic acid (FOLVITE) tablet 1 mg, 1 mg, Oral, Daily 0900, Grace Payan, DO, 1 mg at ??? gabapentin (NEURONTIN) capsule 800 mg, 800 mg, Oral, BID, Grace Payan, DO, 800 mg at 03/21/221216 ??? glucose chewable tablet 12 g, 12 g, Oral, Q15 Min PRN, Grace Duartes DO ??? hydrALAZINE (APRESOLINE) tablet 100 mg, 100 mg, Oral, 3 times per day, Sherly Hawkins MD, 100 mg at 03/21/22 0930 ??? insulin lispro (humaLOG) injection 0-5 Units, 0-5 Units, Subcutaneous, TID AC, Dariela Wood MD, 1 Units at 03/21/22 1221 ??? isosorbide mononitrate (IMDUR) 24 hr tablet 60 mg, 60 mg, Oral, Daily 0900, Irina Craven MD, 60mg at 03/21/22 1217 ??? lisinopriL (PRINIVIL) tablet 40 mg, 40 mg, Oral, Daily 0900, Sherly Hawkins MD, 40 mg at 03/21/22 0929 ? ? methocarbamoL (ROBAXIN) tablet 500 mg, 500 mg, Oral, 4x Daily AC & HS, Grace Payan DO,500 mg at 03/21/22 1218 ??? montelukast (SINGULAIR) tablet 10 mg, 10 mg, Oral, Daily 0900, Grace Schuyler DO, 10 mg at 03/21/22 0931 ??? mycophenolate (CELLCEPT) capsule 250 mg, 250 mg, Oral, BID, Grace Schuyler, DO, 250 mg at 03/21/22 0930 ??? NIFEdipine (PROCARDIA-XL) 24 hr tablet 90 mg, 90 mg, Oral, BID, Neyda Espinoza MD, 90 mg at 03/21/22 0929 ??? oxyCODONE-acetaminophen (PERCOCET) 5-325 mg per tablet 1 tablet, 1 tablet, Oral, Q4H PRN, Gabriel Booth MD, 1 tablet at 03/20/22 1518 ??? pantoprazole (PROTONIX) injection 40 mg, 40 mg, Intravenous, BID6, Grace Payan DO, 40 mg at 03/21/22 0516 ??? peppermint oiL liquid 1 mL, 1 mL, MISCELLANEOUS, PRN, Neyda Espinoza MD ??? sevelamer carbonate (RENVELA) tablet 1,600 mg, 1,600 mg, Oral, TID WC, Grace Schuyler DO, 1,600 mg at 03/21/22 1218 ??? Place saline lock, , , Once AND sodium chloride flush 10 mL, 10 mL, Intravenous, QS, Grace Payan DO, 10 mL at 03/21/22 1217 ??? terazosin (HYTRIN) capsule 10 mg, 10 mg, Oral, Nightly (2100), Grace Schuyler DO, 10 mg at 03/20/22 2141 Physical Examination Vitals: 03/21/22 1200 BP: Pulse: 82 Resp: 16 Temp: 97.5 ??F (36.4 ??C) SpO2: 97% Patient Vitals for the past 4 hrs: Temp Temp src Pulse Resp SpO2 03/21/22 1200 97.5 ??F (36.4 ??C) Oral 82 16 97 % 03/21/22 1100 -- -- 73 15 95 % 03/21/22 1030 97.7 ??F (36.5 ??C) Oral 73 16 97 % 03/21/22 1015 -- -- 72 16 96 % 03/21/22 1000 -- -- 76 16 97 % 03/21/22 0945 -- -- 72 16 98 % 03/21/22 0930 -- -- 72 16 98 % 03/21/22 0915 -- -- 79 16 97 % 03/21/22 0900 -- -- 78 16 97 % 03/21/22 0845 -- -- 75 16 98 % Wt Readings from Last 3 Encounters: 03/21/22 (!) 311 lb 4.6 oz (141.2 kg) 12/22/21 (!) 299 lb 1.6 oz (135.7 kg) 09/21/21 (!) 274 lb (124.3 kg) Intake/Output Summary (Last 24 hours) at 03/21/2022 1235 Last data filed at 03/21/2022 1200 Gross per 24 hour Intake 980 ml Output 4900 ml Net -3920 ml Physical Exam Constitutional: General: He is not in acute distress. Appearance: He is obese. He is ill-appearing. Comments: Obese mael in bed HENT: Head: Normocephalic. Nose: Nose normal. Mouth/Throat: Mouth: Mucous membranes are moist. Pharynx: Oropharynx is clear. Eyes: General: No scleral icterus. Conjunctiva/sclera: Conjunctivae normal. Pupils: Pupils are equal, round, and reactive to light. Cardiovascular: Rate and Rhythm: Regular rhythm. Tachycardia present. Pulses: Normal pulses. Heart sounds: Normal heart sounds. Pulmonary: Effort: Pulmonary effort is normal. No respiratory distress. Breath sounds: Normal breath sounds. Abdominal: General: There is no distension. Palpations: Abdomen is soft. Tenderness: There is no abdominal tenderness. Musculoskeletal: Right lower leg: Edema present. Left lower leg: Edema present. Skin: General: Skin is warm and dry. Neurological: General: No focal deficit present. Mental Status: He is oriented to person, place, and time. Mental status is at baseline. Laboratory Date Recent Labs 03/19/22 0346 03/19/22 1748 03/20/22 0358 03/20/22 1728 03/20/22 21503/21/22 0512 03/21/22 1153 WBC 3.2* -- 3.4* -- -- 3.2* -- HGB 8.3* 8.2* < > 8.9* 8.8* < > 9.0* 8.5* 9.1* HCT 24.6* -- 25.8* -- -- 25.5* -- MCV 100.8* -- 102.2* -- -- 101.4* -- PLT 166 -- 174 -- -- 161 -- < > = values in this interval not displayed. Recent Labs 03/19/22 03403/20/22 0358 03/21/22 0512 NA 135 138 134 K 4.3 5.0 5.5* CL 96* 102 100 CO2 27 28 23 BUN 37* 29* 45* CREATININE 7.56* 6.56* 8.16* GLUCOSE 180* 129* 108* CALCIUM 8.0* 8.4* 8.5* MG 1.9 2.0 1.9 PHOS 5.7* 5.1* 5.3* ANIONGAP 12 8 11 Recent Labs 03/19/22 03403/20/22 0358 03/21/22 0512 CALCIUM 8.0* 8.4* 8.5* PHOS 5.7* 5.1* 5.3* Lab Results Component Value Date IRON 29 (L) 10/31/2021 TIBC 247 (L) 10/31/2021 FERRITIN 826.6 (H) 10/31/2021 Lab Results Component Value Date [id number] 1,355 (H) 10/31/2021 Lab Results Component Value Date COLORU Yellow 07/20/2019 CLARITYU Cloudy (A) 07/20/2019 PROTEINUA >=500 (A) 07/20/2019 PHUR 6.0 07/20/2019 LABSPEC 1.017 07/20/2019 GLUCOSEU 150 (A) 07/20/2019 BLOODU Small (A) 07/20/2019 LEUKOCYTESUR Negative 07/20/2019 NITRITE Negative 07/20/2019 BILIRUBINUR Negative 07/20/2019 UROBILINOGEN <2.0 07/20/2019 RBCUA 6 (H) 07/20/2019 WBCUA 1 07/20/2019 BACTERIA Few (A) 07/20/2019 No results for input(s): NAUR, KUR, CLUR in the last 72 hours. Invalid input(s): CO2UR, CRUR No results found for: MICROALBUR, [id number] In addition to the above an extensive amount of complex data in the patients lab and chart were reviewed. Diagnostic Imaging Reviewed in EMR. This note was copied forward from the note written by Spencer Farah on 03/19/22. I have reviewed and updated the history, physical exam, data, assessment and plan of the note so that it reflects the evaluation and management of the patient on 03/21/22. Cosigned by Sandra Carranza MD at 03/21/2022 9:59 PM EDT Associated attestation - Sandra Carranza MD - 03/21/2022 9:59 PM EDT I have seen and examined the patient, reviewed the labs, notes, assessments, and/or procedures performed by the fellow physician and I agree with the documented findings and plan of care. 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 * Irina Craven MD - 03/21/2022 8:14 AM EDT Department of Internal Medicine CVICU Progress Note Patient: Leoncio Rollins Jr. Date: 03/21/2022, 7:56 AM Location: [facility] LOS: 3 days Attending: Ana Mercado MD Subjective Leoncio Rollins Jr.??is a 47 y.o.??male??with PMHx OLT in 2018 2/ SAL cirrhosis,??ESRD on HD MWF,??HFintEF (45-50%) w/ Diastolic Dysfunction, WHO II Pulm HTN, presents with GIB Past 24 hrs: -Did not receive HD yesterday, no acute events overnight. Denies further diarhhea, no BRBPR. -VS: Afebrile, HR 60-80s, MAPs 80-100 -weight 306 (03/18) -> 311 (03/21) -Labs: sodium 134, K 5.5, BUN 45 and Cr 8.16. WBC 3.2 and Hgb 8.5 Brief Daily Plan ?? Adding Imdur for improved BP control ?? HD today, swan numbers following - will remove swan and [place] following ?? Discuss possibility of cortella v cardiomems during admission ?? Consult to liver for possible scope I/Os Intake/Output Summary (Last 24 hours) at 03/21/2022 0756 Last data filed at 03/21/2022 0516 Gross per 24 hour Intake 1357 ml Output -- Net 1357 ml Vital Signs Temp: [96.8 ??F (36 ??C)-97.8 ??F (36.6 ??C)] 97.7 ??F (36.5 ??C) Heart Rate: [64-83] 73 Resp: [16-20] 16 BP: (121-151)/(60-74) 151/67 FiO2: [45 %] 45 % Physical Exam GENERAL:??morbidly obese male, lying comfortably in bed HENT: normocephalic, atraumatic, moist mucous membranes EYES: PERRLA, EOMI, sclera anicteric CV: normal rate and regular rhythm,??DP??pulses palpated, <2 sec cap refill, 2+ LE edema LUNGS: bibasilar crackles, very thick neck ABDOMEN:??soft, TTP in epigastric region and RLQ, incisional hernia, surgery scar MSK: moves all extremities, no joint swelling. Left forearm fistula +thrill SKIN: warm, dry and intact, no new lesions, no jaundice NEURO: AAOx4, follows commands, speech clear and fluent Medications Scheduled Meds: ??? calcium acetate(phosphat bind) 667 mg Oral TID WC ??? carBAMazepine 200 mg Oral BID ??? carvediloL 12.5 mg Oral BID WC ??? cinacalcet 60 mg Oral Daily with breakfast ??? cycloSPORINE modified 100 mg Oral BID ??? fenofibrate 160 mg Oral Daily 0900 ??? folic acid 1 mg Oral Daily 0900 ??? gabapentin 800 mg Oral BID ??? hydrALAZINE (APRESOLINE) oral tablet 100 mg Oral 3 times per day ??? insulin lispro 0-5 Units Subcutaneous TID AC ??? lisinopriL 40 mg Oral Daily 0900 ? ? methocarbamoL 500 mg Oral 4x Daily AC & HS ??? montelukast 10 mg Oral Daily 0900 ??? mycophenolate 250 mg Oral BID ??? NIFEdipine 90 mg Oral BID ??? pantoprazole (PROTONIX) IV 40 mg Intravenous BID6 ??? sevelamer carbonate 1,600 mg Oral TID WC ??? sodium chloride 10 mL Intravenous QS ??? terazosin 10 mg Oral Nightly (2099) PRN Meds: acetaminophen, dextrose 10% in water OR dextrose 10% in water, glucose, oxyCODONE-acetaminophen, peppermint oiL Drips: Labs Pertinent labs listed in plan below. All other labs reviewed in [facility]. Diagnostic Studies Assessment & Plan Leoncio Rollins Jr. is a 47 y.o. male with Hematochezia. Medical problems being addressed in this encounter include the following: ?? Cardiovascular ?? #Mitral Valve Vegetation Mobile echodensity on posterior mitral annulus (TTE 03/2022) and has a history of MRSE vertebral osteomyelitis diagnosed end of 2019 and he completed 8 weeks of antibiotics. -Blood cultures x 3 NGTD after 48hrs -Consider repeat TTE ?? #HFpEF #Pulm HTN, WHO II (maybe III w/ non-adherent CPAP) #Volume Overload TTE (03/2022): EF 45-50%, GIIDD, hypokanesis of basal-mid anteroseptal myocardium. Mobile echodensity on posterior mitral annulus. RV severely dilated, moderately reduced systolic function. RHC consistent of volume overload. Dry weight 125 kg. Strawberry numbers improving but still volume overloaded. CVP16 today. -HD today for fluid removal -discuss with nephrology possibility of PD for improved fluid removal at discharge -discuss possibility of cardiomems v cartella during admission -Leave Strawberry in. Grab numbers following HD today and likely remove swan and [place] following ?? #Uncontrolled??HTN - hydralazine 100mg q8h and lisinopril 40mg daily. - Continue home nifedipine 90mg BID - Carvedilol 12.5 BID - Add Imdur 60mg - Fluid removal with dialysis ?? Neurology ? Pulmonology ?? #JC Pt report intermittently using ??BiPAP at home and does not have it with him. - Nocturnal supplemental oxygen for SpO2 >88% - Continue BIPAP/AVAPS at night - Per RT, pt apneic and profoundly hypoxic on current CPAP settings. Needs settings changed prior to discharge. Will consult pulm on Monday. ?? Gastrointestinal ?? 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 Normal hepatic function panel. CTAP from OSH with hepatomegaly, periportal edema, and splenomegaly with EV and minimal ascites. INR 1.2. Abdominal USN unrevealing - cyclosporine level low -??Cellcept 250 BID,??cyclosporine 100 BID, and??Entacavir. #Acute on chronic anemia 2/2 GIB Hgb 9 -> 8.6 on admit. Baseline hgb 9-10. Hx of multiple esophageal ulcers. EGD from 2020 with reflux esophagitis, gastritis, and duodenitis. - Continue Protonix 40 BID - Continue iron tabs - Liver consult for potential EGD ?? Renal/Acid-Base ?? # ESRD on HD MWF 2/2 diabetes, HTN and CNI use -??Nephrology following for HD - Discuss possibility of PD for improved fluid removal at discharge - Monitor lytes and replete as needed - Avoid NSAIDs ?? Endocrine #Diabetic neuropathy #Type 2 Diabetes Mellitus - Hgb A1C 5.8 on 03/17 - SSI with meals - Gabapentin and Tegretol? Hematology/Oncology # Leukopenia Likely 2/2 cyclosporine, MMF, and carbamazepine. CTM.? Psychiatry DVT Prophylaxis: SCDs GI Prophylaxis: PPI PT/OT: ordered Code Status: Full Code Disposition: MICU Signed: IRINA CRAVEN MD 03/21/2022, 7:56 AM Cosigned by Ana Mercado MD at 03/21/2022 11:18 PM EDT Associated attestation - Ana Mercado MD - 03/21/2022 11:18 PM EDT CVICU Cardiology Attending: I saw and examined Mr. Eh Marques with the cardiology CVICU team including the cardiovascular disease fellow and CVICU residents on 03/21/2022. I reviewed the patient's past medical history and the history of present illness. I evaluated the current clinical course and laboratory results, and discussed the findings, assessments, and plans in detail. Leoncio Rollins Jr. is a 47 y.o. 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 He endorsed ALEXANDER and seemed volume overloaded. Hecontinues to feel less SOB having received dialysis twice with ~8 L net removal. Had one bout of diarrhea with no recurrence. Vitals stable. Lungs few basal rales. Cor no galop. Still JVD and 2 +ankles edema. SG numbers this morning: RA 15 Wedge: 17 We discussed with nephrology who stated that they will proceed with further fluid removal via dialysis. - Continue BP control with hydralazine 100mg q8h and lisinopril 40mg daily, nifedipine 90mg BID, Carvedilol 12.5 BID - Add imdur 25 mg daily - Fluid removal with dialysis I agree with the resident's note as outlined below. Ana Mercado MD * Austin Schuyler - 03/20/2022 5:57 PM EDT At the patient's earlier request, I made a follow-up visit to Leoncio Oviedo Eh Marques who was alone. I provided pastoral support and offered prayer with the patient. No additional visitation is required. Chaplain Austin Payan D.Min. * Rosemarie Griffin RN - 03/20/2022 5:56 PM EDT 03/20/22 1600 Invasive Hemodynamic Monitoring PAP 55/30 PAP (Mean) 42 mmHg CVP (mmHg) (!) 25 mmHg Abelino Score 0.087 Abelino's Cardiac Output Score Calculate Abelino Score? Yes Heart Rate 79 SpO2 97 % Height 5' 9 (1.753 m) Weight (!) 306 lb 3.5 oz (138.9 kg) BSA (Calculated - sq m) 2.6 sq meters Hgb Blood Gas 9.1 g/dL SVO2% 62.9 % CI L/min/m^2 3.35 L/min/m^2 SV (mL) 110 mL CO (L/min) 8.7 L/min Flat numbers obtained by RN. * Keon Moy RRT - 03/20/2022 9:04 AM EDT RT was present for rounding with nursery laborer team. * Dariela Wood MD - 03/20/2022 7:11 AM EDT Department of Internal Medicine CVICU Progress Note Patient: Leoncio Rollins Jr. Date: 03/20/2022, 7:11 AM Location: [facility] LOS: 2 days Attending: Ana Mercado MD Subjective Leoncio Oviedo Eh Marques??is a 47 y.o.??male??with PMHx OLT in 2018 2/2 SAL cirrhosis,??ESRD on HD MWF,??HFintEF (45-50%) w/ Diastolic Dysfunction, WHO II Pulm HTN, presents with GIB Past 24 hrs: -HD yesterday 4.1 net fluid removal. Put on AVAPs overnight. ? 03/20/22 0400 Invasive Hemodynamic Monitoring Hemodynamic Monitoring Additional Assessment Yes PAP 46/20 PAP (Mean) 31 mmHg CVP (mmHg) 16 mmHg PCWP (mmHg) 18 mmHg Abelino Score 0.122 Abelino's Cardiac Output Score Calculate Abelino Score? Yes Heart Rate 75 SpO2 98 % Height 5' 9 (1.753 m) Weight (!) 306 lb 3.5 oz (138.9 kg) BSA (Calculated - sq m) 2.6 sq meters Hgb Blood Gas 8.9 g/dL SVO2% 73.2 % CI L/min/m^2 4.7 L/min/m^2 SV (mL) 163 mL CO (L/min) 12.23 L/min ? Brief Daily Plan ??? Another round of dialysis today with max UF. I/Os Intake/Output Summary (Last 24 hours) at 03/20/2022 0711 Last data filed at 03/19/2022 1824 Gross per 24 hour Intake 950 ml Output 4100 ml Net -3150 ml Vital Signs Temp: [97 ??F (36.1 ??C)-98.6 ??F (37 ??C)] 98.6 ??F (37 ??C) Heart Rate: [66-84] 75 Resp: [17-20] 20 BP: (140-151)/(58-59) 151/59 FiO2: [45 %] 45 % Physical Exam GENERAL:??morbidly obese male, lying comfortably in bed HENT: normocephalic, atraumatic, moist mucous membranes EYES: PERRLA, EOMI, sclera anicteric CV: normal rate and regular rhythm,??DP??pulses palpated, <2 sec cap refill, 2+ LE edema LUNGS: bibasilar crackles, very thick neck ABDOMEN:??soft, TTP in epigastric region and RLQ, incisional hernia, surgery scar MSK: moves all extremities, no joint swelling. Left forearm fistula +thrill SKIN: warm, dry and intact, no new lesions, no jaundice NEURO: AAOx4, follows commands, speech clear and fluent Medications Scheduled Meds: ??? calcium acetate(phosphat bind) 667 mg Oral TID WC ??? carBAMazepine 200 mg Oral BID ??? carvediloL 12.5 mg Oral BID WC ??? cinacalcet 60 mg Oral Daily with breakfast ??? cycloSPORINE modified 100 mg Oral BID ??? fenofibrate 160 mg Oral Daily 0900 ??? folic acid 1 mg Oral Daily 0900 ??? gabapentin 800 mg Oral BID ??? hydrALAZINE (APRESOLINE) oral tablet 100 mg Oral 3 times per day ??? insulin lispro 0-5 Units Subcutaneous TID AC ??? lisinopriL 40 mg Oral Daily 0900 ? ? methocarbamoL 500 mg Oral 4x Daily AC & HS ??? montelukast 10 mg Oral Daily 0900 ??? mycophenolate 250 mg Oral BID ??? NIFEdipine 90 mg Oral BID ??? pantoprazole (PROTONIX) IV 40 mg Intravenous BID6 ??? sevelamer carbonate 1,600 mg Oral TID WC ??? sodium chloride 10 mL Intravenous QS ??? terazosin 10 mg Oral Nightly (2099) PRN Meds: acetaminophen, dextrose 10% in water OR dextrose 10% in water, glucose, oxyCODONE-acetaminophen, peppermint oiL Drips: Labs Pertinent labs listed in plan below. All other labs reviewed in Epic. Diagnostic Studies Assessment & Plan Leoncio Rollins Jr. is a 47 y.o. male with Hematochezia. Medical problems being addressed in this encounter include the following: ?? Cardiovascular ?? #Mitral Valve Vegetation Mobile echodensity on posterior mitral annulus (TTE 03/2022) and has a history of MRSE vertebral osteomyelitis diagnosed end of 2019 and he completed 8 weeks of antibiotics. -Blood cultures x 3, consider ID evaluation given his history, if blood cultures are positive or ifwe find evidence of embolization on any imaging, a SOCRATES is warranted for better characterization, right now he only meets 1 major and 0 minor criteria for IE based on our assessment. -follow-up blood culture - NGTD ?? #HFpEF #Pulm HTN, WHO II (maybe III w/ non-adherent CPAP) #Volume Overload TTE (03/2022): EF 45-50%, GIIDD, hypokanesis of basal-mid anteroseptal myocardium. Mobile echodensity on posterior mitral annulus. RV severely dilated, moderately reduced systolic function. RHC consistent of volume overload. Dry weight 125 kg. Strawberry numbers improving but still volume overloaded. CVP16 today. -anuric. Will require dialysis for volume removal -nephrology consulted, will attempt multiple dialysis sessions for volume removal. Goal 3-4 L today. Another dialysis session today -Leave Strawberry in. Numbers q day after dialysis session. Can potentially remove tommorow if numbers stable ?? #Uncontrolled??HTN - hydralazine 100mg q8h and lisinopril 40mg daily. - Continue home nifedipine 90mg BID - Carvedilol 12.5 BID - Fluid removal with dialysis ?? Neurology ? Pulmonology ?? #CJ Pt report intermittently using ??BiPAP at home and does not have it with him. - Nocturnal supplemental oxygen for SpO2 >88% - Continue BIPAP/AVAPS at night - Per RT, pt apneic and profoundly hypoxic on current CPAP settings. Needs settings changed prior to discharge. Will consult pulm on Monday. ?? Gastrointestinal ?? 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 Normal hepatic function panel. CTAP from OSH with hepatomegaly, periportal edema, and splenomegaly with EV and minimal ascites. INR 1.2. Abdominal USN unrevealing -cyclosporine level low -??Cellcept 250 BID,??cyclosporine 100 BID, and??Entacavir. - Consult liver for management on 03/21 #Acute on chronic anemia 2/2 GIB Hgb 9 -> 8.6 on admit. Baseline hgb 9-10. Hx of multiple esophageal ulcers. EGD from 2020 with reflux esophagitis, gastritis, and duodenitis. - Continue Protonix 40 BID - Continue iron tabs - Liver consult for potential EGD on 03/21 ?? Renal/Acid-Base ?? # ESRD on HD MWF 2/2 diabetes, HTN and CNI use -??Nephrology following for HD - Monitor lytes and replete as needed - Avoid NSAIDs ?? Endocrine #Diabetic neuropathy #Type 2 Diabetes Mellitus - Hgb A1C 5.8 on 03/17 - SSI with meals - Gabapentin and Tegretol? Hematology/Oncology # Leukopenia Likely 2/2 cyclosporine, MMF, and carbamazepine. CTM.? Psychiatry DVT Prophylaxis: SCDs GI Prophylaxis: PPI PT/OT: ordered Code Status: Full Code Disposition: MICU Signed: DARIELA WOOD MD 03/20/2022, 7:11 AM Cosigned by Ana Mercado MD at 03/20/2022 11:20 PM EDT Associated attestation - Ana Mercado MD - 03/20/2022 11:20 PM EDT CVICU Cardiology Attending: I saw and examined Mr. Eh Marques with the cardiology CVICU team including the cardiovascular disease fellow and CVICU residents on 03/20/2022. I reviewed the patient's past medical history and the history of present illness. I evaluated the current clinical course and laboratory results, and discussed the findings, assessments, and plans in detail. Leoncio Rollins Jr. is a 47 y.o. 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 He endorsed ALEXANDER and seemed volume overloaded. Hecontinues to feel less SOB having received dialysis twice with ~8 L net removal. Had one bout of diarrhea. Vitals stable. Lungs few basal rales. Cor no galop. Still JVD and 2 +ankles edema. SG numbers this morning: RA 16 Wedge: 18 We discussed with nephrology who stated that they will proceed with further fluid removal via dialysis. - Continue BP control with hydralazine 100mg q8h and lisinopril 40mg daily, nifedipine 90mg BID, Carvedilol 12.5 BID - Fluid removal with dialysis I agree with the resident's note as outlined below. Ana Mercado MD * Dayanara Carnes, DIRECTOR OF BUSINESS CONTINUITY - 03/20/2022 4:40 AM EDT Pt tolerated AVAPS mode well overnight. * Monse Nassar RN - 03/20/2022 4:21 AM EDT 03/20/22 0400 Invasive Hemodynamic Monitoring Hemodynamic Monitoring Additional Assessment Yes PAP 46/20 PAP (Mean) 31 mmHg CVP (mmHg) 16 mmHg PCWP (mmHg) 18 mmHg Abelino Score 0.122 Abelino's Cardiac Output Score Calculate Abelino Score? Yes Heart Rate 75 SpO2 98 % Height 5' 9 (1.753 m) Weight (!) 306 lb 3.5 oz (138.9 kg) BSA (Calculated - sq m) 2.6 sq meters Hgb Blood Gas 8.9 g/dL SVO2% 73.2 % CI L/min/m^2 4.7 L/min/m^2 SV (mL) 163 mL CO (L/min) 12.23 L/min #'s laying flat MONSE NASSAR * Noel Farah DO - 03/19/2022 8:00 AM EDT Transplant Nephrology Progress Note 03/19/2022 10:21 AM Patient: Leoncio Rollins Jr. [id number] Date of Admit: 03/16/2022 LOS: 1 days Referring physician: Ana Mercado MD Date of Response: 03/19/2022 Recommendations: - HD today with UF goal of ~5L. Usually limited by cramping (3.5L yesterday) - EDW ~136kg per patient - Continue binders - Obtain outpatient scripts for EPO/Iron schedule Assessment Renal Function: Cr: 7.56 Bun: 37 on 03/19/2022 #ESRD - Etiology: DM HTN - iHD MWF - EDW 136 (prior target weight in 10/2020 was 119kg) - Left AVF - Dr Enrique Albright [facility] Reportedly nearly completed his last HD session on 03/16/2022, with 40 minutes left. On HD MWF. #OLT 2018 - IS per hepatology (CsA and MMF) Hemodynamics/CVS: BP: 182/70 - Meds: Doxazosin 8mg, Hydralazine 100mg TID, Nifedipine 90mg BID, Metoprolol Succ 100mg qhs Electrolytes: Na: 135 K: 4.3 Cl: 96 Ma.9 Ca: 8.0 Phos: 5.7 No current issues. Acid Base Status: Anion Gap: 12 Bicarb: 27 No current issues. Volume Status: Hypervolemic Mineral Bone Disease: Ca: 8.0 PO4: 5.7 Alb: 4.0 PTH: 870.0 on 09/21/2021 Vit D: 15.8 on 01/14/2019 - Continue binders Anemia of GIB: Hgb 8.2; 8.3 Hct 24.6 Plt 166 Iron 29 on 10/31/2021 Ferritin 826.6 on 10/31/2021 TIBC: 247 on 10/31/2021 Haptoglobin: 226 on 07/20/2019 LDH: 340 on 07/20/2019 Anemia 2/2 GIB. Hgb low, monitor for ongoing hemorrhaging. General Recommendations: - Monitor urine output closely, [...] All recommendations are preliminary until attending attestation. Noel Farah D.O. Nephrology Fellow PGY-5 Pager: [phone] Reason for Consult Chief complaint: blood in stool History of Present Illness Leoncio Rollins Jr. is a pleasant 47 y.o. 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 Patient presented on 03/16/2022 with GIB early in the am before his dialysis session. He reports he left his HD session 40 minutes before it completed. Later at home, he had a large BM without blood in it. He has had this happen before that was found to be d/t PUD. He otherwise receives HD routinely without difficulty. He has a LUE AVF, which he reports has low pressure and has been looking to have it evaluated by his surgeon outpatient. He reports his AVF still functions but may require evaluation in the near future. He reports feeling better after Tx in ED and deniesany f, c, headache, dizziness, chest pain, dyspnea, abd pain, n/v/d, malaise, or weakness. Interval History: - HD yesterday with 3.5L off. Today feeling about same. CVP improved after HD, however now back up to 24 at bedside Review of Systems (Focused) Significant as listed in HPI otherwise Past Medical History Unchanged Medications Inpatient Meds: Medications Prior to Admission Medication Sig Dispense Refill Last Dose ??? ALPRAZolam (XANAX) 0.5 MG tablet Take 0.5 mg by mouth if needed for Sleep. ??? aspirin 81 MG chewable tablet Chew 1 tablet (81 mg total) by mouth daily with breakfast. 30 tablet 5 03/16/2022 at Unknown time ??? calcium acetate,phosphat bind, (PHOSLO) 667 mg capsule Take 667 mg by mouth 3 times a day with meals. 03/16/2022 at Unknown time ??? carBAMazepine (TEGRETOL) 200 mg tablet Take 200 mg by mouth 2 times a day. 03/16/2022 at Unknown time ??? cholecalciferol, vitamin D3, 1,250 mcg (50,000 unit) capsule Take 1 capsule by mouth three times weekly on Monday, , and Monday. ??? cycloSPORINE modified (CYCLOSPORINE MODIFIED) 25 MG capsule Take 4 capsules (100 mg total) by mouth 2 times a day. 720 capsule 1 03/16/2022 at Unknown time ??? doxazosin (CARDURA) 8 MG tablet Take 8 mg by mouth at bedtime. 03/16/2022 at Unknown time ??? entecavir (BARACLUDE) 0.5 MG tablet Take 1 tablet (0.5 mg total) by mouth every 7 days. 4 tablet 5 Past Week at Unknown time ??? fenofibrate micronized (LOFIBRA) 134 MG capsule Take 134 mg by mouth every morning before breakfast. 03/16/2022 at Unknown time ??? ferrous sulfate 325 (65 FE) MG tablet Take 1 tablet (325 mg total) by mouth daily with breakfast. 30 tablet 0 03/16/2022 at Unknown time ??? folic acid (FOLVITE) 1 MG tablet Take 1 tablet (1 mg total) by mouth daily. 30 tablet 0 03/16/2022 at Unknown time ??? gabapentin (NEURONTIN) 800 MG tablet Take 800 mg by mouth 2 times a day. ??? hydrALAZINE (APRESOLINE) 100 MG tablet Take 1 tablet (100 mg total) by mouth every 8 hours. 120tablet 0 03/16/2022 at Unknown time ??? insulin aspart U-100 (NOVOLOG) 100 unit/mL injection Administers per sliding scale 3 times daily with meals 03/16/2022 at Unknown time ??? lidocaine (LIDODERM) 5 % Place 1 patch onto the skin daily as needed. ??? methocarbamoL (ROBAXIN) 500 MG tablet Take 500 mg by mouth 4 times daily before meals and at bedtime. 03/15/2022 at Unknown time ??? metoprolol succinate (TOPROL-XL) 100 MG 24 hr tablet Take 100 mg by mouth at bedtime. 03/15/2022 at Unknown time ??? montelukast (SINGULAIR) 10 mg tablet Take 10 mg by mouth daily. 03/15/2022 at Unknown time ??? mycophenolate (CELLCEPT) 250 mg capsule Take 1 capsule (250 mg total) by mouth 2 times a day. 180 capsule 1 03/16/2022 at Unknown time ??? NIFEdipine (PROCARDIA-XL) 90 MG (OSM) 24 hr tablet Take 90 mg by mouth 2 times a day. 03/16/2022 at Unknown time ??? ondansetron (ZOFRAN-ODT) 4 MG disintegrating tablet Take 4 mg by mouth every 8 hours as needed. 03/16/2022 at Unknown time ??? pantoprazole (PROTONIX) 40 MG tablet Take 40 mg by mouth in the morning and at bedtime. ??? polyethylene glycol (MIRALAX) 17 gram packet Take 17 g by mouth daily as needed (mild constipation (no BM for 24 hrs)). 14 packet 0 Past Week at Unknown time ??? proMETHazine (PHENERGAN) 12.5 MG tablet Take 12.5 mg by mouth every 6 hours as needed. ??? sevelamer carbonate (RENVELA) 800 mg tablet Take 1,600 mg by mouth 3 times a day with meals. 03/16/2022 at Unknown time ??? testosterone cypionate (DEPOTESTOTERONE CYPIONATE) 200 mg/mL injection Inject into the muscle. Past Month at Unknown time ??? VASCEPA 1 gram Cap TAKE 2 Capsule by mouth twice daily 03/15/2022 at Unknown time Scheduled Meds: ??? calcium acetate(phosphat bind) 667 mg Oral TID WC ??? carvediloL 12.5 mg Oral BID WC ??? cinacalcet 60 mg Oral Daily with breakfast ??? cycloSPORINE modified 100 mg Oral BID ??? fenofibrate 160 mg Oral Daily 0900 ??? folic acid 1 mg Oral Daily 0900 ??? gabapentin 800 mg Oral BID ??? hydrALAZINE (APRESOLINE) oral tablet 100 mg Oral 3 times per day ??? insulin lispro 0-5 Units Subcutaneous TID AC ??? lisinopriL 40 mg Oral Daily 0900 ? ? methocarbamoL 500 mg Oral 4x Daily AC & HS ??? montelukast 10 mg Oral Daily 0900 ??? mycophenolate 250 mg Oral BID ??? NIFEdipine 90 mg Oral BID ??? pantoprazole (PROTONIX) IV 40 mg Intravenous BID6 ??? sevelamer carbonate 1,600 mg Oral TID WC ??? sodium chloride 10 mL Intravenous QS ??? terazosin 10 mg Oral Nightly (2099) Continuous Infusions: PRN medications: acetaminophen, carBAMazepine, dextrose 10% in water OR dextrose 10% in water, glucose, oxyCODONE-acetaminophen, peppermint oiL Allergies: Allergies Allergen Reactions ??? Tacrolimus Other (See Comments) Anxious feeling and muscle jerking. TOLERATED ENVARSUS BETTER THAN PROGRAF. ??? Codeine Sulfate Hyper ??? Codeine Other (See Comments) Becomes hyper Vital Signs Temp: [96.8 ??F (36 ??C)-98.8 ??F (37.1 ??C)] 97.2 ??F (36.2 ??C) Heart Rate: [67-85] 72 Resp: [20-22] 20 BP: (170-205)/(70-108) 182/70 FiO2: [45 %] 45 % Patient Vitals for the past 4 hrs: Temp Temp src Pulse Resp SpO2 Height Weight 03/19/22 0900 -- -- 72 -- 94 % -- -- 03/19/22 0802 -- -- 71 -- 100 % -- -- 03/19/22 08 97.2 ??F (36.2 ??C) Mike 69 20 100 % -- -- 03/19/22 0700 -- -- 69 -- 97 % -- -- 03/19/22 0650 -- -- -- -- 97 % -- -- 03/19/22 0633 -- -- -- -- -- 5' 9 (1.753 m) (!) 306 lb 3.5 oz (138.9 kg) Wt Readings from Last 3 Encounters: 03/19/22 (!) 306 lb 3.5 oz (138.9 kg) 12/22/21 (!) 299 lb 1.6 oz (135.7 kg) 09/21/21 (!) 274 lb (124.3 kg) Admit Wt: Weight: (!) 305 lb 1.9 oz (138.4 kg) Todays Wt: Weight: (!) 306 lb 3.5 oz (138.9 kg) Estimated body mass index is 45.22 kg/m?? as calculated from the following: Height as of this encounter: 5' 9 (1.753 m). Weight as of this encounter: 306 lb 3.5 oz (138.9 kg). Date 03/18/22699 - 03/19/2265803/19/22699 - 03/20/22 0659 Shift 8765-7317 4121-3666 4752-0953 24 Hour Total 6780-5163 1985-2724 0864-3900 24 Hour Total INTAKE P.O. 500 360 860 380 380 P.O. 500 360 860 380 380 I.V. 78(0.6) 78(0.6) I.V. 78 78 Shift Total(mL/kg) 500 438(3.2) 938(6.8) 380(2.7) 380(2.7) OUTPUT Other 3535 3535 Net fluid removal (ml) 3535 3535 Stool Stool Occurrence 1 x 1 x Shift Total(mL/kg) 3535(25.5) 3535(25.5) Weight (kg) 138.4 138.9 138.9 138.9 138.9 138.9 138.9 Intake/Output Summary (Last 24 hours) at 03/19/2022 1021 Last data filed at 03/19/2022 0800 Gross per 24 hour Intake 1018 ml Output 3535 ml Net -2517 ml I/O last 3 completed shifts: In: 2438 [P.O.:2360; I.V.:78] Out: 3535 [Other:3535] RESPIRATORY Ventilator Setting: No data found. Fi02 Requirement: No data found. Last ABG: Lab Results Component Value Date PCO2 48 (H) 05/30/2020 [id number] 66.1 03/19/2022 Physical Exam General appearance: Awake and alert, oriented to time, place and person, pleasant, cooperative, no apparent distress. Head: Normocephalic, without obvious abnormality, atraumatic, Oropharynx: no oral ulcers or thrush, optimal dentition Eyes: PERRL, EOM intact, no pallor/icterus Ears: No discharge Neck: Supple, trachea midline, no JVD Lungs: Clear to auscultation bilaterally and no respiratory distress Heart: regular rate and rhythm,no murmurs, no rubs, no gallops. Abdomen: soft, non-tender non-distended, bowel sounds present. Extremities: +++BLE edema. Warm dry. No cyanosis, no ecchymosis. Neuro: following commands, moving all extremities, sensation intact to touch, normal speech, face symmetric Skin: Warm, No rashes/lesions noted Psych: good eye contact, normal affect MSK: All joints appearing normal, no effusion/tenderness noticed. Laboratory Data Recent Labs 03/17/22 0957 03/18/22 0458 03/18/22 0932 03/19/22 0346 WBC 2.7* 3.1* -- 3.2* HGB 8.7* 8.4* 8.9* 8.3* 8.2* HCT 26.5* 24.9* -- 24.6* MCV 102.5* 101.5* -- 100.8* PLT 149 154 -- 166 Recent Labs 03/16/22 2334 03/18/22 0458 03/19/22 0346 NA 140 138 135 K 4.1 4.4 4.3 CL 97* 94* 96* CO2 29 29 27 BUN 48* 60* 37* CREATININE 7.83* 9.96* 7.56* GLUCOSE 111* 91 180* CALCIUM 9.1 8.3* 8.0* MG 1.8 2.0 1.9 PHOS 4.9* 7.0* 5.7* ANIONGAP 14 15 12 Recent Labs 03/16/22 2334 INR 1.2* PROTIME 15.7* FSBS Range: Recent Labs 03/17/22 0553 03/17/22 1300 03/17/22 1803 03/17/22 2340 03/18/22 0357 03/18/22 1338 03/18/22 1924 03/19/22 0802 POCGMD 110* 103* 127* 207* 123* 154* 183* 213* Recent Labs 03/16/22 2334 ALT 8 AST 12* ALKPHOS 74 BILITOT 0.6 Cardiac Labs: No results for input(s): CKTOTAL, CKMB, CKMBINDEX, TROPONINI, BNP, NTPROBNP in the last 72 hours. No results for input(s): CHOLTOT, TRIG, HDL, CHOLHDL, LDL in the last 72 hours. Invalid input(s): VLDCHOL Lab Results Component Value Date HGBA1C 5.8 (H) 03/17/2022 HGBA1C 6.0 (H) 09/21/2021 HGBA1C 6.5 (H) 07/15/2021 Nephro Labs: No results for input(s): COLORU, CLARITYU, PH, PROTEINUA, PHUR, LABSPEC, GLUCOSEU, BLOODU, LEUKOCYTESUR, NITRITE, BILIRUBINUR, UROBILINOGEN, RBCUA, WBCUA, BACTERIA, AMORPHOUS, CRYSTAL, CASTS in the last 72 hours. Invalid input(s): KEYTONESU No results for input(s): NAUR, KUR, CLUR in the last 72 hours. Invalid input(s): CO2UR, CRUR No results found for: MICROALBUR, [id number] Lab Results Component Value Date PTH 870.0 (H) 09/21/2021 CALCIUM 8.0 (L) 03/19/2022 PHOS 5.7 (H) 03/19/2022 Lab Results Component Value Date [id number] 15.8 (L) 01/14/2019 Anemia Labs: Lab Results Component Value Date IRON 29 (L) 10/31/2021 TIBC 247 (L) 10/31/2021 FERRITIN 826.6 (H) 10/31/2021 Lab Results Component Value Date [id number] 1,355 (H) 10/31/2021 Sepsis Marker Labs: No results for input(s): LACTATE in the last 72 hours. Lab Results Component Value Date FIBRINOGEN 454 (H) 07/20/2019 No results for input(s): TEGANGLE, TEGKTIME, YYCHPNSC60, TEGMAXAMPL, TEGRTIME, CBMZ in the last 72 hours. No results for input(s): ESR, CRP in the last 72 hours. Lab Results Component Value Date ESR 15 09/03/2020 ESR 21 (H) 07/15/2020 ESR 21 (H) 06/22/2020 ESR 25 (H) 06/15/2020 ESR 28 (H) 06/01/2020 CRP 14.3 (H) 09/03/2020 CRP 23.8 (H) 07/14/2020 CRP 94.2 (H) 06/22/2020 CRP 74.5 (H) 06/15/2020 CRP 47.0 (H) 06/08/2020 Infectious Labs Urine cx: Lab Results Component [...] found for: LABFUNG No results found for: PROTEINCSF, GLUCCSF, CFLCCOM, CULTCSF Lab Results Component Value Date HIV1X2 Negative 03/18/2022 No results found for: PC4GHEHI No results found for: VDRLCSF Lab Results Component Value Date HEPAIGM Nonreactive 03/17/2022 HEPBCAB Reactive (A) 03/17/2022 No results found for: [id number] No results found for: [id number] In addition to the above an extensive [...] limited, but is grossly unremarkable. Other: None IMPRESSION: 1. Increased echogenicity of the kidneys compatible with nonspecific medical renal disease. 2. No hydronephrosis Report Verified by: Marcy Villagran MD at 10/22/2020 12:00 PM EST No results found for this or any previous visit. Radiology last 48 hours: Echo 2D Complete (TTE) Result Date: 03/17/2022 * [facility]* [address], [place] [id number] Transthoracic Echocardiography Patient: Leoncio Rollins MR #: [id number] Account: Study Date: 03/17/2022 Gender: M Age: 47 : 1975 Room: COUNTS INCLUDE 234 BEDS AT THE [facility] FELLOW MD DENNY Reid MD READING Dontae Hawkins MD PANAMA HAT BLOCKER Ashish Sheldon ORDERING Mandi Mora REFERRING Mandi Mora ATTENDING Kelsey Carcamo Ravi ADMITTING Carlos AlbertoKelsey Procedure:ECHO 2D COMPLETE (TTE) Order: ---- Indications: Heart Failure Systolic(I50.20). Study data: Height: 69in. 175.3cm. Weight: 298.3lb. 135.6kg. Comparison was made to the study of 06/01/2020. Study status: Routine. Procedure: Transthoracic echocardiography. Image quality was good. Scanning was performedfrom the parasternal, apical, and subcostal acoustic windows. Transthoracic echocardiography. M-mode, complete 2D, complete spectral Doppler, and color Doppler. Birthdate: Patient birthdate: 1975. Age: Patient is 47yr old. Sex: gender: male. Body mass index: BMI: 44.1kg/m^2. Body surface area: BSA: 2.64m^2. Blood pressure: 141/80 Patient status: Inpatient. Study date: Study date: 03/17/2022. Study time: 01:17 PM. Location: Bedside. Study Conclusions - Left ventricle: The cavity size is normal. Wall thickness was in creased in a pattern of moderate LVH. Systolic function was mildly reduced. The estimated ejection fraction was in the range of 45% to 50%. Features are consistent with a pseudonormal left ventricular filling pattern, with concomitant abnormal relaxation and increased filling pressure (grade 2 diast olic dysfunction). - Regional wall motion abnormality: Hypokinesis of the basal- mid anteroseptal myocardium. - Aortic valve: Focal calcification involving the left coronary cusp. Left coronary cusp mobility was severely restricted. - Mitral valve: Moderately calcified annulus. There is a mobile echodensity on the posterior aspect of the mitral annulus which represents a small mobile calcificationversus vegetation. - Right ventricle: The cavity size is severely dilated. Wall thickness is normal. Systolic function was moderately reduced by visual assessment. Tricuspid annular systolic velocity: 8cm/s. - Pulmonary arteries: The peak pressure during systole by Doppler is 61mm Hg. - Inferior chung a cava: The vessel was dilated. The respirophasic diameter changes were blunted (< 50%), consistent with elevated central venous pressure. Impressions: Compared to prior there is likely a mild interval decrease in the LV ejection fraction. The RV is better visualized on the current study and is dilated with moderately depressed function. Cardiac Anatomy Left ventricle: - The cavity size is normal. Wall thickness was increased in a pattern of moderate LVH. Systolic function was mildly reduced. The estimated ejection fraction was in the range of 45% to 50%. Regional wall motion abnormalities: - Hypokinesis of the basal-midanteroseptal myocardium. - Features are consistent with a pseudonormal left ventricular filling pattern, with concomitant abnormal relaxation and increased filling pressure (grade 2 diastolic dysfunction). Aorta: Aortic root: - The aortic root is normal in size. Aortic valve: - Trileaflet; moderately thickened leaflets. Focal calcification involving the left coronary cusp. Left coronary cusp mobil ity was severely restricted. Doppler: - Transvalvular velocity is minimally increased. There is no stenosis. No regurgitation. Mitral valve: - Poorly visualized. Moderately calcified annulus. There is a mobile echodensity on the posterior aspect of the mitral annulus which represents a small mobile calcification versus vegetation. Doppler: - Transvalvular velocity is within the normal range. There is no evidence for stenosis. Trivial regurgitation. Left atrium: - The atrium is mildly dilated. Systemic veins: Inferior vena cava: The vessel was dilated. The respirophasic diameter changes were blunted (< 50%), consistent with elevated central venous pressure. Right ventricle: - The cavity size is severely dilated. Wall thickness is normal. Systolic function was moderately reduced by visual assessment. Tricuspid annular systolic velocity: 8cm/s. Pulmonic valve: Doppler: - Transvalvular velocity is within the normal range. There is no evidence for stenosis. Trivial regurgitation. Tricuspid valve: - Structurally normal valve. Doppler: - Transvalvular velocity is within the normal range. Mild-moderate regurgitation directed eccentrically. Right atrium: - The atrium is normal in size. Pericardium: - There is no pericardial effusion. Systemic veins: Inferior vena cava: - The vessel was dilated. The respirophasic diameter changes were blunted (< 50%), consistent with elevated central venous pressure. Measurements Left ventricle Value 06/01/2020 Ref GINA, LAX (N) 5.7 cm 4.2 - 5.8 ESD, LAX (H) 4.5 cm 2.5 - 4.0 GINA/bsa, LAX (N) 2.2 cm/m^2 2.2 - 3.0 ESD/bsa, LAX (N) 1.7 cm/m^2 1.3 - 2.1 FS, LAX (L) 21 % FS, LAX chord (L) 21 % ESD (H) 4.5 cm 2.5 - 4.0 ESD/bsa (N) 1.7 cm/m^2 1.3 - 2.1 PW, ED (H) 1.5 cm 0.6 - 1.0 IVS/PW, ED 1 EDV (H) 160 ml 62 - 150 ESV (H) 92 ml 21 61 EF (L) 42 % 52 - 72 SV 113 ml EDV/bsa (N) 61 ml/m^2 34 - 74 ESV/bsa (H) 35 ml/m^2 11 - 31 SV/bsa 43 ml/m^2 SV, 1-p A2C 68 ml SV/bsa, 1-p A2C 25.6 ml/m^2 SV, 1-p A4C 94 ml 137 SV/bsa, 1-p A4C 36 ml/m^2 59 E', lat denilson, TDI (N) 10.9 cm/sec 17.9 >=10.0 E/e', lat denilson, TDI 11 8 A', lat denilson, TDI 11.9 cm/sec E'/a', lat denilson, TDI 0.92 S', lat denilson, TDI 9.6 cm/sec 10.9 E', med denilson, TDI (N) 7.1 cm/sec 12.0 >=7.0 E/e', med denilson, TDI 17 12 A', med denilson, TDI 6.4 cm/sec E'/a', med denilson, TDI 1.1 S', med denilson, TDI 7.0 cm/sec 10.6 E', avg, TDI 9.0 cm/sec 15.0 E/e', avg, TDI (N) 13 10 <=14 LVET 290 ms LVOT Value 06/01/2020 Ref Diam, S 2.3 cm Area 4.2 cm^2 Peak cesilia, S 1.29 m/sec 1.38 Mean cesilia, S 0.81 m/sec Peak grad, S 7 mm Hg 8 SV 113 ml SV/bsa 43 ml/m^2 Ventricular septum Value 06/01/2020 Ref IVS, ED (H) 1.5 cm 0.6 - 1.0 Right ventricle Value 06/01/2020 Ref GINA, LAX 2.9 cm 5.8 TAPSE, MM (N) 2.0 cm 2.1 1.7 - 3.1 S' lateral(N) 7.9 cm/sec 13.2 6.0 - 13.4 RVOT Value 06/01/2020 Ref Peak v, S 0.74 m/sec 1.18 Left atrium Value 06/01/2020 Ref AP dim, ES (N) 3.2 cm 4.4 3.0 - 4.0 AP dim index (L) 1.2 cm/m^2 1.9 1.5 - 2.3 Area ES, A4C (H) 26 cm^2 23 <=20 Area ES, A2C 27 cm^2 25 SI dim, A2C 6.4 cm 5.4 - --------- Vol, ES, 1-p A4C (H) 82 ml 68 18 - 58 Vol/bsa, ES, 1-p A4C (N) 31 ml/m^2 29 12 - 37 Vol, ES, 1-p A2C (H) 92 ml 87 18 - 58 Vol/bsa, ES, 1-p A2C (N) 35 ml/m^2 37 11 - 43 Vol, ES, 2-p 87 ml 80 Vol/bsa, ES, 2-p (N) 33 ml/m^2 34 16 - 34 Right atrium Value 06/01/2020 Ref Area, ES, A4C (H) 22 cm^2 22 10 - 18 Aortic valve Value 06/01/2020 Ref Peak v, S 1.7 m/sec 2.2 Mean v, S 1.22 m/sec 1.47 Mean grad, S 7 mm Hg 11 Peak grad, S 11 mm Hg 20 LVOT/AV, VTI ratio 0.78 LEO, VTI 3.2 cm^2 LEO/bsa, VTI1.22 cm^2/m^2 LVOT/AV, Vpeak ratio 0.78 0.62 LEO, Vmax 3.2 cm^2 --- ------- LEO/bsa, Vmax 1.22 cm^2/m^2 LVOT/AV, Vmean ratio 0.66 LEO, Vmean 2.7 cm^2 LEO/bsa, Vmean 1.04 cm^2/m^2 Mitral valve Value 06/01/2020 Ref Peak E 1.2 m/sec 1.49 Peak A 0.97 m/sec Decel time 261 ms 204 Peak grad, D 6 mm Hg 9 Peak E/A ratio 1.2 Pulmonic valve Value 06/01/2020 Ref Peak v, S 1.2 m/sec 1.6 Tricuspid valve Value 06/01/2020 Ref TR peak v (N) 2.8 m/sec <=2.8 Peak RV-RA grad, S 46 mm Hg Max TR cesilia 2.84 m/sec Aortic root Value 06/01/2020Ref Root diam (N) 3.2 cm 2.9 <4.6 Ascending aorta Value 06/01/2020 Ref AAo AP diam, S 2.9 cm AAo AP diam/bsa, S 1.1 cm/m^2 Pulmonary artery Value 06/01/2020 Ref Pressure, S 61 mm Hg Legend: (L) and (H) krunal values outside specified reference range. (N) moran values inside specified reference range. I personally reviewed the images and agree with the interpretation of the resident. Reviewed and confirmed by Vinod Stokes MD [id number] US Abdomen Complete Result Date: 03/17/2022 EXAM: US ABDOMEN COMPLETE EXAM: US DUPLEX [id number] COMPLETE INDICATION: Elevated LFTs. Remote liver transplant. DATE: 03/17/2022 7:45 AM EDT COMPARISON: 01/12/2019 TECHNIQUE: Grayscale imaging was performed for evaluation of the liver, gallbladder, common bile duct, pancreas, spleen, and kidneys; color and spectral (duplex) Doppler analysis of the hepatic vasculature was also performed. FINDINGS: Liver: Normal sonographic appearance of the transplant liver. No focal hepatic observations. Biliary/CBD: 11 mm. No intrahepatic biliary ductal dilatation. Gallbladder: Surgically absent. Pancreas: Obscured by overlying bowel gas. Right kidney: 8.8 cm in length. Increased parenchymal echogenicity. No hydronephrosis. Diffuse cortical thinning. Left kidney: Not visualized due to overlying bowel gas. Spleen: Enlarged measuring 15.6 cm. Aorta and IVC: Visualized portions of the abdominal aorta are not aneurysmal. The retrohepatic IVC is color Doppler patent. Other: No free fluid. DOPPLER: Hepatic Veins: Duplex evaluation of the hepatic vasculature demonstrates normal flow in the right, middle and left hepatic veins. Portal Veins: The right, left and main portal vein demonstrate hepatopetal flow. Hepatic Arteries: Right, main and left hepatic arteries demonstrate normal waveforms. Resistive Indices Main hepatic artery: 0.77 Right hepatic artery: 0.82 Left hepatic artery: 0.75 IMPRESSION: ABDOMEN 1. 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 2. Medical renal disease of the right kidney with left kidney not visualized. LIVER DOPPLER Patent hepatic vasculature with normal arterial waveforms. Approved by Jay Lucas DO on 03/17/2022 10:10 AM EDT I have personallyreviewed the images and I agree with this report. Report Verified by: Manolo Rosenthal MD at 03/17/2022 10:32 AM EDT X-ray Portable Chest Result Date: 03/17/2022 EXAM: XR PORTABLE CHEST INDICATION: Shortness of breath TECHNIQUE: 1 view of the chest. COMPARISON:10/31/2021 FINDINGS: Medical Devices: None. Heart and Mediastinum: Cardiomediastinal silhouette is within normal limits. Lungs and Pleura: Lungs are clear with no focal consolidations, pleural effusions or evidence for pneumothorax. Bones and soft tissues: Unchanged. IMPRESSION: No acute cardiopulmonary abnormality. Approved by Shell Thao MD on 03/17/2022 7:48 AM EDT I have personally reviewed the images and I agree with this report. Report Verified by: Adam Morelos MD at 03/17/2022 7:49 AM EDT US Duplex Obk-Une-Sboehku Comp Result Date: 03/17/2022 EXAM: US ABDOMEN COMPLETE EXAM: US DUPLEX [id number] COMPLETE INDICATION: Elevated LFTs. Remote liver transplant. DATE: 03/17/2022 7:45 AM EDT COMPARISON: 01/12/2019 TECHNIQUE: Grayscale imaging was performed for evaluation of the liver, gallbladder, common bile duct, pancreas, spleen, and kidneys; color and spectral (duplex) Doppler analysis of the hepatic vasculature was also performed. FINDINGS: Liver: Normal sonographic appearance of the transplant liver. No focal hepatic observations. Biliary/CBD: 11 mm. No intrahepatic biliary ductal dilatation. Gallbladder: Surgically absent. Pancreas: Obscured by overlying bowel gas. Right kidney: 8.8 cm in length. Increased parenchymal echogenicity. No hydronephrosis. Diffuse cortical thinning. Left kidney: Not visualized due to overlying bowel gas. Spleen: Enlarged measuring 15.6 cm. Aorta and IVC: Visualized portions of the abdominal aorta are not aneurysmal. The retrohepatic IVC is color Doppler patent. Other: No free fluid. DOPPLER: Hepatic Veins: Duplex evaluation of the hepatic vasculature demonstrates normal flow in the right, middle and left hepatic veins. Portal Veins: The right, left and main portal vein demonstrate hepatopetal flow. Hepatic Arteries: Right, main and left hepatic arteries demonstrate normal waveforms. Resistive Indices Main hepatic artery: 0.77 Right hepatic artery: 0.82 Left hepatic artery: 0.75 IMPRESSION: ABDOMEN 1. 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 2. Medical renal disease of the right kidney with left kidney not visualized. LIVER DOPPLER Patent hepatic vasculature with normal arterial waveforms. Approved by Jay Lucas DO on 03/17/2022 10:10 AM EDT I have personallyreviewed the images and I agree with this report. Report Verified by: Manolo Rosenthal MD at 03/17/2022 10:32 AM EDT NUTRITIONAL STATUS, ACCESS, CODE STATUS Nutrition: Diet Orders Report Diet cardiac no concentrated carbohydrates starting at 03/18 1115 Access: Patient Lines/Drains/Airways Status Active Epidural Line / PICC Line / PIV Line / ART Line / Line / CVC Line Name Placement date Placement time Site Days Peripheral IV 03/16/22 Anterior;Proximal;Right Forearm 03/16/22 1000 Forearm 3 Peripheral IV 03/16/22 Anterior;Right Wrist 03/16/22 1000 Wrist 3 Introducer 03/18/22 Internal jugular Right 03/18/22 1145 Internal jugular less than 1 Code Status: Full Code This note was copied forward from previously composed documentation, my smart phrases, and other Epic tools. I have personally reviewed and updated the history, review of systems, physical exam, data, assessment and plan of the note so that it reflects the evaluation and management of the patient on 03/19/2022. Cosigned by Destin Rawls MD at 03/19/2022 1:35 PM EDT Associated attestation - Destin Rawls MD - 03/19/2022 1:35 PM EDT I have seen and examined the patient, reviewed the notes, assessments, and/or procedures performed by the fellow/resident/ANUSHA and I concur with her/his documentation of the patient. Review of labs, pathology reports, radiograph reports, and medical records confirm the findings noted above. I have edited the note where appropriate. HD again today Anemia management per dialysis protocol Monitor lytes/BP Destin Rawls MD Transplant Nephrology Attending * Dariela Wood MD - 03/19/2022 7:09 AM EDT Images from the original note were not included. Department of Internal Medicine CVICU Progress Note Patient: Leoncio Rollins Jr. Date: 03/19/2022, 7:10 AM Location: [facility] LOS: 1 days Attending: Ana Mercado MD Subjective Leoncio Rollins Jr.??is a 47 y.o.??male??with PMHx OLT in 2018 09/15 SAL cirrhosis,??ESRD on HD MWF,??HFintEF (45-50%) w/ Diastolic Dysfunction, WHO II Pulm HTN, presents with GIB Past 24 hrs: ?? Arterial line inserted overnight for hemodynamic review. Desatted requiring 6L bleed through andput on AVAPS. No HD note (cannot tell how much volume removed). ?? Vitals: MAPs 80s, now 3L o2, Brief Daily Plan ??? Another round of dialysis today with max UF. I/Os Intake/Output Summary (Last 24 hours) at 03/19/2022 0710 Last data filed at 03/18/20221999 Gross per 24 hour Intake 938 ml Output -- Net 938 ml Vital Signs Temp: [96.6 ??F (35.9 ??C)-98.8 ??F (37.1 ??C)] 97.9 ??F (36.6 ??C) Heart Rate: [67-85] 67 Resp: [20-24] 20 BP: (170-205)/(70-108) 182/70 FiO2: [45 %] 45 % Physical Exam GENERAL:??morbidly obese male, lying comfortably in bed HENT: normocephalic, atraumatic, moist mucous membranes EYES: PERRLA, EOMI, sclera anicteric CV: normal rate and regular rhythm,??DP??pulses palpated, <2 sec cap refill, 2+ LE edema LUNGS: bibasilar crackles, very thick neck ABDOMEN:??soft, TTP in epigastric region and RLQ, incisional hernia, surgery scar MSK: moves all extremities, no joint swelling. Left forearm fistula +thrill SKIN: warm, dry and intact, no new lesions, no jaundice NEURO: AAOx4, follows commands, speech clear and fluent Medications Scheduled Meds: ??? calcium acetate(phosphat bind) 667 mg Oral TID WC ??? carvediloL 12.5 mg Oral BID WC ??? cinacalcet 60 mg Oral Daily with breakfast ??? cycloSPORINE modified 100 mg Oral BID ??? fenofibrate 160 mg Oral Daily 0900 ??? folic acid 1 mg Oral Daily 0900 ??? gabapentin 800 mg Oral BID ??? hydrALAZINE (APRESOLINE) oral tablet 100 mg Oral 3 times per day ??? insulin lispro 0-5 Units Subcutaneous TID AC ??? lisinopriL 40 mg Oral Daily 0900 ? ? methocarbamoL 500 mg Oral 4x Daily AC & HS ??? montelukast 10 mg Oral Daily 0900 ??? mycophenolate 250 mg Oral BID ??? NIFEdipine 90 mg Oral BID ??? pantoprazole (PROTONIX) IV 40 mg Intravenous BID6 ??? sevelamer carbonate 1,600 mg Oral TID WC ??? sodium chloride 10 mL Intravenous QS ??? terazosin 10 mg Oral Nightly (2099) PRN Meds: acetaminophen, carBAMazepine, dextrose 10% in water OR dextrose 10% in water, glucose, oxyCODONE-acetaminophen, peppermint oiL Drips: Labs Pertinent labs listed in plan below. All other labs reviewed in Epic. Diagnostic Studies Assessment & Plan Leoncio Rollins Jr. is a 47 y.o. male with Hematochezia. Medical problems being addressed in this encounter include the following: ?? Cardiovascular ?? #Mitral Valve Vegetation Mobile echodensity on posterior mitral annulus (TTE 03/2022) and has a history of MRSE vertebral osteomyelitis diagnosed end of 2019 and he completed 8 weeks of antibiotics. -Blood cultures x 3, consider ID evaluation given his history, if blood cultures are positive or ifwe find evidence of embolization on any imaging, a SOCRATES is warranted for better characterization, right now he only meets 1 major and 0 minor criteria for IE based on our assessment. -follow-up blood culture - NGTD ?? #BiV Failure #HFpEF #Pulm HTN, WHO II (maybe III w/ non-adherent CPAP) #Volume Overload TTE (03/2022): EF 45-50%, GIIDD, hypokanesis of basal-mid anteroseptal myocardium. Mobile echodensity on posterior mitral annulus. RV severely dilated, moderately reduced systolic function. RHC consistent of volume overload. Dry weight 125 kg. Strawberry numbers improving but still volume overloaded. -anuric. Will require dialysis for volume removal -nephrology consulted, will attempt multiple dialysis sessions for volume removal. Goal 3-4 L today. Will attempt daily sessions -Leave Strawberry in. Numbers q day after dialysis session ?? #Uncontrolled??HTN - hydralazine 100mg q8h and lisinopril 40mg daily. - Continue home nifedipine 90mg BID - Carvedilol 12.5 BID - Fluid removal with dialysis ?? Neurology ? Pulmonology ?? #JC Pt report intermittently using ??BiPAP at home and does not have it with him. - Nocturnal supplemental oxygen for SpO2 >88% - Continue BIPAP/AVAPS at night ?? Gastrointestinal ?? 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 Normal hepatic function panel. CTAP from OSH with hepatomegaly, periportal edema, and splenomegaly with EV and minimal ascites. INR 1.2. Abdominal USN unrevealing -cyclosporine level low -??Cellcept 250 BID,??cyclosporine 100 BID, and??Entacavir. - Consult liver for management #Acute on chronic anemia 2/2 GIB Hgb 9 -> 8.6 on admit. Baseline hgb 9-10. Hx of multiple esophageal ulcers. EGD from 2019 with reflux esophagitis, gastritis, and duodenitis. S/p 80mg IV Protonix and gtt at OSH. ?? - Continue Protonix 40 BID - Continue iron tabs - Liver consult for potential EGD ?? Renal/Acid-Base ?? # ESRD on HD MWF 2/2 diabetes, HTN and CNI use -??Nephrology following for HD - Monitor lytes and replete as needed - Avoid NSAIDs ?? Endocrine #Diabetic neuropathy #Type 2 Diabetes Mellitus - Hgb A1C 5.8 on 03/17 - SSI with meals - Gabapentin and Tegretol? Hematology/Oncology # Leukopenia Likely 2/2 cyclosporine, MMF, and carbamazepine. CTM.? Psychiatry DVT Prophylaxis: SCDs GI Prophylaxis: PPI PT/OT: ordered Code Status: Full Code Disposition: MICU Signed: DARIELA WOOD MD 03/19/2022, 7:10 AM Cosigned by Ana Mercado MD at 03/20/2022 11:20 PM EDT Associated attestation - Ana Mercado MD - 03/20/2022 11:20 PM EDT CVICU Cardiology Attending: I saw and examined Mr. Eh Marques with the cardiology CVICU team including the cardiovascular disease fellow and CVICU residents on 03/19/2022. I reviewed the patient's past medical history and the history of present illness. I evaluated the current clinical course and laboratory results, and discussed the findings, assessments, and plans in detail. Leoncio Rollins Jr. is a 47 y.o. male with PMHx OLT in 2018 09/15 SAL cirrhosis, ESRD on HD MWF, HFintEF (45-50%) w/ Diastolic Dysfunction, WHO II Pulm HTN, presents with GIB Pt originally presented for w/o of potential UGIB. He endorses ALEXANDER and seemed volume overload. He feels less SOB today having received dialysis yesterday. Vitals stable. Lungs few basal rales. Cor nogalop. Still JVD and 2 +ankles edema. SG numbers this morning: RA 18 Wedge: 22 CO 5.1 He was transferred to the CVICU for further SWAN guided fluid removal. Of note patient is anuric. He received one session of dialysis yesterday with some fluid removal resulting in clinical improvement. We discussed with nephrology today who stated that they will proceed again with further dialysistoday. - hydralazine 100mg q8h and lisinopril 40mg daily. - Continue home nifedipine 90mg BID - Carvedilol 12.5 BID - Fluid removal with dialysis I agree with the resident's note as outlined below. Ana Mercado MD * Dayanara Carnes, DIRECTOR OF BUSINESS CONTINUITY - 03/19/2022 4:38 AM EDT Pt placed in AVAPs mode on our BIPAP unit. RR 12/VT500/Max p30/Min p9/ EPAP 8/45%. VTs 550-700 * Duyen Cesar RN - 03/19/2022 4:21 AM EDT 03/19/22 0400 Vitals Heart Rate 73 Patient Position Lying Oxygen Therapy SpO2 90 % O2 Device CPAP O2 Flow Rate (L/min) 6 L/min (6L bleed in) Invasive Hemodynamic Monitoring PAP 49/24 PAP (Mean) 34 mmHg CVP (mmHg) 18 mmHg (Flat) PCWP (mmHg) 24 mmHg Abelino Score 0.135 Abelino's Cardiac Output Score Calculate Abelino Score? Yes Heart Rate 73 SpO2 90 % Height 5' 9 (1.753 m) Weight 299 lb 2.6 oz (135.7 kg) BSA (Calculated - sq m) 2.57 sq meters Hgb Blood Gas 8.3 g/dL SVO2% 66.1 % CI L/min/m^2 5.23 L/min/m^2 SV (mL) 184 mL CO (L/min) 13.45 L/min Art Line (2) Arterial Line BP 2 141/59 Arterial Line MAP (mmHg) 80 mmHg Flat numbers * Dayanara Carnes RRT - 03/19/2022 4:19 AM EDT Pt was on home CPAP unit. SPO2 down to 71%. 6L bleed in placed inline with unit and patient continues to have frequent apnea spells and SPO2 down to 70%. Pt placed on our V60 unit. 10/5 45% RR 10. SPO2 98% * Austin Payan - 03/18/2022 8:35 PM EDT Upon the recommendation of the previous shift's mine technician, I visited Leoncio Rollins Jr. who was alone. Upon my third attempt to visit with him, I provided pastoral support and offered prayer with the patient who hails from [place], [place]. No follow-up visitation is required. Chaplain Austin Payan D.Min. * Dariela Chu DO - 03/18/2022 12:47 PM EDT BRIEF CARDIOLOGY FOLLOW-UP NOTE: Leoncio Rollins Jr. is a 47 y.o. male with SAL cirrhosis s/p OLT, ESRD, DM2 on insulin, JC on BiPAP, HTN, HFmrEF and pulmonary hypertension (post-capillary by 2018 RHC). He is here for hematochezia and is being considered for EGD/Colonoscopy. Cardiology is consulted for pre-operative assessment. Risk stratification led to the finding that he has been very short of breath for a couple months withincreased abdominal bloating. Given concern for PH, EGD/colonoscopy was deferred by primary team until severity of PH could be defined. Patient's RHC demonstrated severe volume overload today and we r ecommended transfer to CVICU for Strawberry-guided management for HFpEF and RV failure. #HFmrEF exacerbation #RV failure #Post-capillary pulmonary hypertension #JC on BiPAP #Mitral valve vegetation #GI bleeding (stable) #Non-obstructive CAD (by CT coronary 2020 at OSH) #Prolonged QTc RECOMMENDATIONS: --Transfer to CVICU --GI consult --Discussed with primary team --Follow blood cultures Patient seen and discussed with the attending french translator, Dr. Hernandez. Recommendations are considered preliminary until co-signed by the attending french translator. Follow up appointments with Cardiology can be scheduled by calling [phone]. Thank you for involving us in their care. Please callwith any questions. Cosigned by Wilmer Hernandez MD at 03/18/2022 9:47 PM EDT Associated attestation - Wilmer Hernandez MD - 03/18/2022 9:47 PM EDT I have personally obtained the history, performed the physical examination, reviewed the pertinent laboratory and imaging data, discussed the case with the house staff on 03/18/2022 and agree with the assessment and plan. Wilmer Hernandez MD * Gem Abbott RN - 03/18/2022 10:20 AM EDT 03/18/22 1014 Vitals Temp 96.6 ??F (35.9 ??C) Temp Source Strawberry Heart Rate 73 Heart Rate Source Monitor Resp 24 Oxygen Therapy SpO2 98 % O2 Device Nasal Cannula O2 Flow Rate (L/min) 2 L/min Pulse Oximetry Type Continuous SpO2 Alarm Limit High 100 SpO2 Alarm Limit Low 90 Oximetry Probe Site Changed No Invasive Hemodynamic Monitoring PAP 45/19 PAP (Mean) 30 mmHg CVP (mmHg) 14 mmHg PCWP (mmHg) (Did not wedge, waiting xray) Abelino's Cardiac Output Score Calculate Abelino Score? Yes Heart Rate 73 SpO2 98 % Height 5' 9 (1.753 m) Weight 299 lb 2.6 oz (135.7 kg) BSA (Calculated - sq m) 2.57 sq meters Hgb Blood Gas 8.9 g/dL SVO2% 63.4 % CI L/min/m^2 3.37 L/min/m^2 SV (mL) 119 mL CO (L/min) 8.67 L/min Flat numbers, transducer zeroed and leveled No drips * Gabriel Booth MD - 03/18/2022 8:59 AM EDT Sedation Post-op Note Patient: Leoncio Rollins Procedure(s) Performed: RHC, sutured in at 57 cm Markedly elevated filling pressures Anesthesia type: moderate Patient location: Tele Post pain: Adequate analgesia Post assessment: no apparent anesthetic complications and tolerated procedure well Last Vitals: Vitals: 03/18/22 0700 BP: 152/90 Pulse: 74 Resp: 20 Temp: 97.4 ??F (36.3 ??C) SpO2: 93% Post vital signs: stable Level of consciousness: awake and alert Complications: None Cosigned by Oliver Reed MD at 03/18/2022 9:15 AM EDT Associated attestation - Oliver Reed MD - 03/18/2022 9:15 AM EDT Oliver Reed MD,[facility] Asst. Prof, Cardiovascular Health and Disease * Grace Payan DO - 03/18/2022 1:49 AM EDT Cross Cover Note Reviewed cards recommendations. Per discussion with GI attending physician, will hold off on prep for tonight to undergo further cardiac/pulm HTN investigation. Communicated with nursing. Per nurse, patient requesting additional medication for nausea. Requested repeat of EKG which showed QTc 512. Will give single additional dose of zofran 4 mg. Grace Payan DO, MS Internal Medicine Resident, PGY-3 Pager [phone] 03/18/2022, 1:50 AM * Neyda Espinoza MD - 03/17/2022 10:06 AM EDT DEPARTMENT OF INTERNAL MEDICINE DAILY PROGRESS NOTE Chief Complaint / Reason for Follow-Up Hematochezia. Leoncio Rollins Jr. is a 47 y.o. male with SAL cirrhosis s/p OLT in 2018, ESRD on HD, pHTN, HFrEF, JC, and DM presenting with abdominal pain and BRBPR Significant 24h Events / Subjective Patient still complains of abdominal pain. Reports that he has not had any more bloody stool since the one that brought him in. Physical Exam Temp: [97.2 ??F (36.2 ??C)-98.5 ??F (36.9 ??C)] 97.6 ??F (36.4 ??C) Heart Rate: [72-87] 72 Resp: [16-18] 16 BP: (138-181)/(66-110) 178/90 I/O last 3 completed shifts: In: 120 [P.O.:120] Out: 0 GENERAL: morbidly obese male, lying comfortably in bed HENT: normocephalic, atraumatic, moist mucous membranes EYES: PERRLA, EOMI, sclera anicteric CV: normal rate and regular rhythm, DP pulses palpated, <2 sec cap refill, no LE edema LUNGS: CTAB, no wheezes or crackles, no increased WOB ABDOMEN: soft, TTP in epigastric region and RLQ, incisional hernia, surgery scar MSK: moves all extremities, no joint swelling SKIN: warm, dry and intact, no new lesions, no jaundice NEURO: AAOx4, follows commands, speech clear and fluent PSYCH: mood congruent with situation, normal behavior Data Lab 03/17/22 0957 03/16/22 2334 WBC 2.7* 3.5* HEMOGLOBIN 8.7* 8.6* HEMATOCRIT 26.5* 26.2* MEAN CORPUSCULAR VOLUME 102.5* 102.4* PLATELETS 149 172 Lab 03/16/22 2334 SODIUM 140 POTASSIUM 4.1 CHLORIDE 97* CO2 29 BUN 48* CREATININE 7.83* GLUCOSE 111* Lab 03/16/22 2334 CALCIUM 9.1 MAGNESIUM 1.8 PHOSPHORUS 4.9* Lab 03/16/22 2334 INR 1.2* PROTHROMBIN TIME 15.7* All imaging reviewed. 24h imaging reports: X-ray Portable Chest Result Date: 03/17/2022 EXAM: XR PORTABLE CHEST INDICATION: Shortness of breath TECHNIQUE: 1 view of the chest. COMPARISON:10/31/2021 FINDINGS: Medical Devices: None. Heart and Mediastinum: Cardiomediastinal silhouette is within normal limits. Lungs and Pleura: Lungs are clear with no focal consolidations, pleural effusions or evidence for pneumothorax. Bones and soft tissues: Unchanged. IMPRESSION: No acute cardiopulmonary abnormality. Approved by Shell Thao MD on 03/17/2022 7:48 AM EDT I have personally reviewed the images and I agree with this report. Report Verified by: Adam Morelos MD at 03/17/2022 7:49 AM EDT Assessment & Plan Leoncio Rollins Jr. is a 47 y.o. male on HD# 1 with Hematochezia. The medical issues being addressedin today's encounter are as follows: #Acute on chronic anemia 2/2 GIB Hgb 9 -> 8.6 on admit. Baseline hgb 9-10. Hx of multiple esophageal ulcers. EGD from 2019 with reflux esophagitis, gastritis, and duodenitis. S/p 80mg IV Protonix and gtt at OSH. - Continue Protonix 40 BID - Continue iron tabs #HFrEF #Group 2 pHTN Last echo report on 03/02/21 showed LVEF 30-40%. RHC 05/14/21 with WHO group II pulmonary hypertension. Saw Dr. Ravi Biswas in pulmonary hypertension clinic but has not been worked up. - CXR with no cardiomegaly - Repeat echo - Lopressor 25mg BID #Uncontrolled HTN Home antihypertensives held on admission d/t possible GI bleed. Hgb stable. - Hold hydralazine 100mg q8h and lisinopril 40mg daily. 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 Normal hepatic function panel. CTAP from OSH with hepatomegaly, periportal edema, and splenomegaly with EV and minimal ascites. INR 1.2. Abdominal USN unrevealing - Cellcept 250 BID, cyclosporine 100 BID, and Entacavir. #JC Pt report intermittently using BiPAP at home and does not have it with him. Has been using 2LNC at night for hypoxia. - Nocturnal supplemental oxygen for SpO2 >88% - will bring BiPAP tomorrow # Leukopenia Likely 2/2 cyclosporine, MMF, and carbamazepine. CTM.? #Diabetic neuropathy #Type 2 Diabetes Mellitus - Hgb A1C 5.8 on 03/17 - Euglycemic on labs - SSI with meals - Gabapentin and Tegretol ?? Chronic conditions: # HLD - continue fenofibrate # GERD - on Protonix Diet Orders: Diet Orders Report Diet clear liquid No Red; No starting at 03/17 0831 DVT PPx: SQH TID. GI PPx: PPI. PT/OT: n/a - PT Recs: - OT Recs: - [employer]CH[employer]ECT[employer]TAIN Recs: Lines/Drains/Airway: Patient Lines/Drains/Airways Status Active Line / PIV Line Name Placement date Placement time Site Days Peripheral IV 03/16/22 Anterior;Proximal;Right Forearm 03/16/22 1000 Forearm 1 Peripheral IV 03/16/22 Anterior;Right Wrist 03/16/22 1000 Wrist 1 Dispo: Not medically ready for discharge Code Status: Full Code Signed: NEYDA ESPINOZA MD 03/17/2022 10:19 AM * Shalom Guerrero MD - 03/16/2022 2:22 PM EDT Mr. Leoncio Rollins 47 yo M hx of liver transplant in [address] Salinas , ESRD [facility] who presented with [facility] for dialysis. Shortly after developed some epigastric abdominal villanueva and n/v. Had 45 minutes left of dialysis whenit was stopped due to the abdominal pain. Hg- 8.9 which was his baseline around 9. CT abdomen showed hepatomegaly and perihepatic and portal edema -rejection could not be excluded and had some gastric varies. ALT- 15, AST-21 and bili 0.9 , INR - was pending. Heme-occult positive and patient endorsedbright blood pre rectum. documented in this encounter H&P Notes * Wilmer Hoyos MD - 03/23/2022 8:50 AM EDT [facility] PRE-SEDATION ASSESSMENT, HISTORY & PHYSICAL Date: 03/23/2022 Leoncio Rollins Jr. is a 47 y.o. year old male Pre-Procedure Diagnosis/Procedure Indication: Hematochezia, Dyspepsia Planned Procedure: EGD/Colonoscopy NPO for solids >8 hours, NPO for [...] ??? ABDOMINAL SURGERY ??? BACK SURGERY 04/2020 [facility] ??? CREATION AV FISTULA ??? ESOPHAGOGASTRODUODENOSCOPY N/A [...] 2 times a day. Yes Historical Provider, cholecalciferol, vitamin D3, 1,250 mcg (50,000 unit) capsule Take 1 capsule by mouth three times weekly on Monday, , and Monday. 01/06/22 Yes Historical Provider, cycloSPORINE modified (CYCLOSPORINE MODIFIED) 25 MG capsule [...] 11/02/21 Yes Kate Santos MD gabapentin (NEURONTIN) 800 MG tablet Take 800 mg by mouth 2 times a day. 03/08/22 Yes Historical Provider, hydrALAZINE (APRESOLINE) 100 MG tablet Take 1 tablet (100 mg total) by mouth every 8 hours. 06/25/20 Yes Jake Zavala MD insulin aspart U-100 (NOVOLOG) 100 unit/mL injection Administers per sliding scale 3 times daily with meals Yes Historical Provider, lidocaine (LIDODERM) 5 % Place 1 patch onto the skin daily as needed. 04/26/21 Yes Historical Provider, methocarbamoL (ROBAXIN) 500 MG tablet Take 500 mg by mouth 4 times daily before meals and at bedtime. Yes Historical Provider, metoprolol succinate (TOPROL-XL) 100 MG 24 hr tablet Take 100 mg by mouth at bedtime. 03/08/22 Yes Historical Provider, montelukast (SINGULAIR) 10 mg [...] Provider, pantoprazole (PROTONIX) 40 MG tablet Take 40 mg by mouth in the morning and at bedtime. Yes Historical Provider, polyethylene glycol (MIRALAX) 17 [...] mouth twice daily 03/08/22 Yes Historical Provider, Allergies: Tacrolimus Codeine Sulfate Codeine Abbreviated Review of Systems (ROS) Functional Capacity: AQUINO ACTIVITY SCALE: 3 - Walking on a flat surface for one or two blocks. Chest Pain: no Shortness of Breath/Dyspnea or Exertion: no Recent URI: no Airway, ASA Score & Sedation Specific History Concerns Mallampati: III ASA Score: III - Moderate systematic disease with functional limitations Sedation-Specific History Concerns: None This patient was re-evaluated immediately prior to sedation administration. Focused Physical Exam: Height ; Weight ; BMI Body mass index is 44.75 kg/m??. Vitals: 03/23/22 0820 BP: 158/82 Pulse: 72 Resp: 18 Temp: 98.2 ??F (36.8 ??C) SpO2: 98% Neuro: A+Ox3 Cardiovascular: RRR Respiratory: CTAB Sedation Plan: MAC Antibiotic prophylaxis is not indicated. Cosigned by Roxann Moore MD at 03/23/2022 9:03 AM EDT Associated attestation - Roxann Moore MD - 03/23/2022 9:03 AM EDT Attending Physician's Note: I have personally seen and examined the patient, reviewed the chart, imaging and labs and have discussed the case with Dr. Hoyos and agree with their pre- operative anesthesia evaluation note andconfirm it. Roxann Moore MD Transplant Hepatology [phone] (p) * Dariela Wood MD - 03/18/2022 8:56 AM EDT Department of Internal Medicine CVICU History and Physical Patient: Leoncio Rollins Jr. Date: 03/18/2022, 8:56 AM Attending: Kelsey Carcamo MD Chief complaint: BRBPR HPI Leoncio Rollins Jr. is a 47 y.o. 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 He endorses ALEXANDER and seemed volume overload, so was scheduled for RHC prior to procedure. RHC done this morning and revealed the following numbers RHC Numbers: RA 23 RV 70/20 PA 68/25 (42) Wedge: 25 CO 4.4 abelino, 4.1 thermo He was transferred to the CVICU for further SWAN guided diuresis. Of note patient is anuric. He denies any chest pain, SOB, no additional hematochezia / melena. He has not missed anydialysis, but hissessions have been limited by cramps. ROS No headache, dizziness, weakness, subjective neurological deficits No chest pain, palpitations No cough, SOB No abdominal pain, n/v/d No dysuria, hematuria No lower extremity pain or numbness No rashes or bruises Past Medical History Past Medical History: Diagnosis [...] ??? ABDOMINAL SURGERY ??? BACK SURGERY 04/2020 [facility] ??? CREATION AV FISTULA ??? ESOPHAGOGASTRODUODENOSCOPY N/A [...] Left fracture leg with hardware placement ??? TIPS PROCEDURE 10/2016 ??? TIPS Revision 04/2017 ??? TYMPANOSTOMY TUBE PLACEMENT 07/2020 Family History Family History Problem Relation Age of Onset ??? Diabetes Sister ??? Anesthesia problems Neg Hx Social History Social History Tobacco Use ??? Smoking status: Never Smoker ??? Smokeless tobacco: Never Used Substance Use Topics ??? Alcohol use: No Allergies Allergies Allergen Reactions ??? Tacrolimus Other (See Comments) Anxious feeling and muscle jerking. TOLERATED ENVARSUS BETTER THAN PROGRAF. ??? Codeine Sulfate Hyper ??? Codeine Other (See Comments) Becomes hyper Home Medications Prior to Admission medications Medication Sig Start Date End Date Taking? Authorizing Provider ALPRAZolam (XANAX) 0.5 MG tablet Take 0.5 mg by mouth if needed for Sleep. Yes Historical Provider, aspirin 81 MG chewable tablet Chew 1 tablet (81 mg total) by mouth daily with breakfast. 10/17/17 YesBere Feng CNP blood sugar diagnostic Strp Use to test blood sugar up to 4 times a day. Diagnosis for use: E 9.65.For use with One Touch Verio meters. 10/18/17 Yes Bere Feng CNP blood-glucose meter (ONETOUCH VERIO SYSTEM) [facility] [place] instructed. 10/18/17 Yes Bere Feng CNP calcium acetate,phosphat bind, (PHOSLO) 667 mg capsule Take 667 mg by mouth 3 times a day with meals. Yes Historical Provider, carBAMazepine (TEGRETOL) 200 mg tablet Take 200 mg by mouth 2 times a day. Yes Historical Provider, cinacalcet (SENSIPAR) 60 MG tablet Take 60 mg by mouth daily with breakfast. Yes Historical Provider, cycloSPORINE modified (CYCLOSPORINE MODIFIED) 25 MG capsule Take 4 capsules (100 mg total) by mouth2 times a day. 09/16/21 Yes Jack Ordoñez MD doxazosin (CARDURA) 8 MG tablet Take 8 mg by mouth at bedtime. 05/12/18 Yes Historical Provider, entecavir (BARACLUDE) 0.5 MG tablet Take 1 tablet (0.5 mg total) by mouth every 7 days. 01/05/21 YesJack Ordoñez MD ergocalciferol (ERGOCALCIFEROL) 1,250 mcg (50,000 unit) capsule Take 50,000 Units by mouth every Monday, , and Monday. Yes Historical Provider, fenofibrate micronized (LOFIBRA) 134 [...] mouth daily. 11/02/21 Yes Kate Santos MD hydrALAZINE (APRESOLINE) 100 MG tablet Take 1 tablet (100 mg total) by mouth every 8 hours. 06/25/20 Yes Jake Zavala MD insulin aspart U-100 (NOVOLOG) 100 unit/mL injection Administers per sliding scale 3 times daily with meals Yes Historical Provider, lancets (ONETOUCH DELICA LANCETS) 33 gauge Misc Use 1 strip as directed 4 times daily before meals and at bedtime. 10/18/17 Yes Bere Feng CNP lisinopriL (PRINIVIL) 40 MG tablet Take 1 tablet by mouth daily. 05/13/20 Yes Historical Provider, methocarbamoL (ROBAXIN) 500 MG tablet Take 500 mg by mouth 4 times daily before meals and at bedtime. Yes Historical Provider, metoprolol succinate (TOPROL-XL) 100 MG 24 hr tablet Take 100 mg by mouth at bedtime. 03/08/22 Yes Historical Provider, montelukast (SINGULAIR) 10 mg tablet Take 10 mg by mouth daily. 03/08/22 Yes Historical Provider, mycophenolate (CELLCEPT) 250 mg capsule Take 1 capsule (250 mg total) by mouth 2 times a day. 02/09/22 Yes Jack Ordoñez MD NIFEdipine (PROCARDIA-XL) 90 MG (OSM) 24 hr tablet Take 90 mg by mouth 2 times a day. 04/23/18 Yes Historical Provider, omega-3 fatty acids-fish oil 300-1,000 mg capsule Take 2 capsules by mouth 2 times a day with meals. Yes Historical Provider, ondansetron (ZOFRAN-ODT) 4 MG disintegrating tablet Take 4 mg by mouth every 8 hours as needed. 04/11/18 Yes Historical Provider, pantoprazole (PROTONIX) 40 MG tablet Take 1 tablet (40 mg total) by mouth daily. Patient taking differently: Take 40 mg by mouth in the morning and at bedtime. 06/25/20 Yes Jake Zavala MD pen needle, diabetic 32 gauge x Ndle Use as directed to inject insulin 4 times daily. 10/16/17 Yes Bere Feng CNP polyethylene glycol (MIRALAX) 17 gram packet Take 17 g by mouth daily as needed (mild constipation (no BM for 24 hrs)). 06/25/20 Yes Jake Zavala MD sevelamer carbonate (RENVELA) 800 mg tablet Take 1,600 mg by mouth 3 times a day with meals. Yes Historical Provider, testosterone cypionate (DEPOTESTOTERONE CYPIONATE) 200 mg/mL injection Inject into the muscle. Yes Historical Provider, VASCEPA 1 gram Cap TAKE 2 Capsule by mouth twice daily 03/08/22 Yes Historical Provider, cholecalciferol, vitamin D3, 1,250 mcg (50,000 unit) capsule take 1 Capsule by mouth 3 times weekly01/06/22 Historical Provider, gabapentin (NEURONTIN) 800 MG tablet Take 800 mg by mouth 2 times a day. 03/08/22 Historical Provider, hydrOXYzine HCL (ATARAX) 25 MG tablet 03/14/22 Historical Provider, lidocaine (LIDODERM) 5 % APPLY 1 Film on skin daily 04/26/21 Historical Provider, proMETHazine (PHENERGAN) 12.5 MG tablet Take by mouth. Historical Provider, Inpatient Medications Scheduled: ??? calcium acetate(phosphat bind) 667 mg Oral TID WC ??? cinacalcet 60 mg Oral Daily with breakfast ??? cycloSPORINE modified 100 mg Oral BID ??? fenofibrate 160 mg Oral Daily 0900 ??? folic acid 1 mg Oral Daily 0900 ??? gabapentin 800 mg Oral BID ??? insulin regular 0-5 Units Subcutaneous Q6H Scheduled ? ? methocarbamoL 500 mg Oral 4x Daily AC & HS ??? metoprolol tartrate 25 mg Oral BID ??? montelukast 10 mg Oral Daily 0900 ??? mycophenolate 250 mg Oral BID ??? NIFEdipine 90 mg Oral BID ??? pantoprazole (PROTONIX) IV 40 mg Intravenous BID6 ??? sevelamer carbonate 1,600 mg Oral TID WC ??? sodium chloride 10 mL Intravenous QS ??? terazosin 10 mg Oral Nightly (2100) Continuous: PRN:acetaminophen, carBAMazepine, dextrose 10% in water OR dextrose 10% in water, glucose, peppermint oiL I/Os Intake/Output Summary (Last 24 hours) at 03/18/2022 0856 Last data filed at 03/17/20221999 Gross per 24 hour Intake 1860 ml Output 0 ml Net 1860 ml I/O last 3 completed shifts: In: 1979 [P.O.:1979] Out: 0 Wt Readings from Last 3 Encounters: 12/22/21 (!) 299 lb 1.6 oz (135.7 kg) 09/21/21 (!) 274 lb (124.3 kg) 01/13/22 (!) 263 lb 7.2 oz (119.5 kg) Vital Signs Temp: [97.4 ??F (36.3 ??C)-98.6 ??F (37 ??C)] 97.4 ??F (36.3 ??C) Heart Rate: [70-82] 74 Resp: [16-20] 20 BP: (114-184)/(75-129) 152/90 BP 152/90 (BP Location: Right arm, Patient Position: Lying) Comment (BP Location): FA Pulse 74 Temp 97.4 ??F (36.3 ??C) (Oral) Resp 20 SpO2 93% Temp (24hrs), Av.9 ??F (36.6 ??C), Min:97.4 ??F (36.3 ??C), Max:98.6 ??F (37 ??C) Patient Vitals for the past 4 hrs: BP Temp Temp src Pulse Resp SpO2 03/18/ 0700 152/90 97.4 ??F (36.3 ??C) Oral 74 20 93 % BP Min: 114/83 Max: 184/93 No data recorded Temp Av.9 ??F (36.6 ??C) Min: 97.4 ??F (36.3 ??C) Max: 98.6 ??F (37 ??C) Pulse Av.9 Min: 70 Max: 82 Resp Av Min: 16 Max: 20 SpO2 Av.5 % Min: 85 % Max: 100 % BP Min: 114/83 Max: 184/93 MAP (mmHg) Av.9 Min: 91 Max: 133 MAP (mmHg) Av.9 Min: 91 Max: 133 Physical Exam GENERAL: morbidly obese male, lying comfortably in bed HENT: normocephalic, atraumatic, moist mucous membranes EYES: PERRLA, EOMI, sclera anicteric CV: normal rate and regular rhythm, DP pulses palpated, <2 sec cap refill, 2+ LE edema LUNGS: CTAB, no wheezes or crackles, no increased WOB ABDOMEN: soft, TTP in epigastric region and RLQ, incisional hernia, surgery scar MSK: moves all extremities, no joint swelling SKIN: warm, dry and intact, no new lesions, no jaundice NEURO: AAOx4, follows commands, speech clear and fluent Labs Pertinent labs included in plan below. Others reviewed in Epic. Diagnostic Studies US Abdomen Complete Final Result IMPRESSION: ABDOMEN 1. 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 2. Medical renal disease of the right kidney with left kidney not visualized. LIVER DOPPLER Patent hepatic vasculature with normal arterial waveforms. Approved by Jay Lucas DO on 03/17/2022 10:10 AM EDT I have personally reviewed the images and I agree with this report. Report Verified by: Manolo Rosenthal MD at 03/17/2022 10:32 AM EDT US Duplex [id number] Comp Final Result IMPRESSION: ABDOMEN 1. 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 2. Medical renal disease of the right kidney with left kidney not visualized. LIVER DOPPLER Patent hepatic vasculature with normal arterial waveforms. Approved by Jay Lucas DO on 03/17/2022 10:10 AM EDT I have personally reviewed the images and I agree with this report. Report Verified by: Manolo Rosenthal MD at 03/17/2022 10:32 AM EDT X-ray Portable Chest Final Result IMPRESSION: No acute cardiopulmonary abnormality. Approved by Shell Thao MD on 03/17/2022 7:48 AM EDT I have personally reviewed the images and I agree with this report. Report Verified by: Adam Morelos MD at 03/17/2022 7:49 AM EDT TTE Study Conclusions - Left ventricle: The cavity [...] and is dilated with moderately depressed function. Assessment & Plan Leoncio Rollins Jr. is a 47 y.o. male with Hematochezia. Medical problems being addressed in this encounter include the following: Cardiovascular #Mitral Valve Vegetation Mobile echodensity on posterior mitral annulus (TTE 03/2022) and has a history of MRSE vertebral osteomyelitis diagnosed end of 2019 and he completed 8 weeks of antibiotics. -Blood cultures x 3, consider ID evaluation given his history, if blood cultures are positive or ifwe find evidence of embolization on any imaging, a SOCRATES is warranted for better characterization, right now he only meets 1 major and 0 minor criteria for IE based on our assessment. -follow-up blood culture #BiV Failure #HFpEF #Pulm HTN, WHO II (maybe III w/ non-adherent CPAP) #Volume Overload TTE (03/2022): EF 45-50%, GIIDD, hypokanesis of basal-mid anteroseptal myocardium. Mobile echodensity on posterior mitral annulus. RV severely dilated, moderately reduced systolic function. RHC consistent of volume overload (see HPI for numbers). Dry weight 125 kg -anuric. Will require dialysis for volume removal -nephrology consulted, will attempt multiple dialysis sessions for volume removal. Goal 3-4 L today. Will attempt daily sessions -Leave Strawberry in. Numbers q day after dialysis session #Uncontrolled HTN - hydralazine 100mg q8h and lisinopril 40mg daily. - Continue home nifedipine 90mg BID - Metoprolol tartrate 50 BID - Fluid removal with dialysis Neurology Pulmonology #JC Pt report intermittently using BiPAP at home and does not have it with him. Has been using 2LNC at night for hypoxia. 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 Normal hepatic function panel. CTAP from OSH with hepatomegaly, periportal edema, and splenomegaly with EV and minimal ascites. INR 1.2. Abdominal USN unrevealing - Cellcept 250 BID, cyclosporine 100 BID, and Entacavir. Renal/Acid-Base # ESRD on HD MWF 2/2 diabetes, HTN and CNI use - Nephrology following for HD - Monitor lytes and replete as needed - Avoid NSAIDs Endocrine #Diabetic neuropathy #Type 2 Diabetes Mellitus - Hgb A1C 5.8 on 03/17 - Euglycemic on labs - SSI with meals - Gabapentin and Tegretol ?? Hematology/Oncology # Leukopenia Likely 2/2 cyclosporine, MMF, and carbamazepine. CTM.?? Psychiatry MICU Checklist Drips: Lines: Patient Lines/Drains/Airways Status Active Line / PIV Line Name Placement date Placement time Site Days Venous Sheath\Access Site Right Internal Jugular Transduced 03/18/22 0826 -- less than 1 Peripheral IV 03/16/22 Anterior;Proximal;Right Forearm 03/16/22 1000 Forearm 1 Peripheral IV 03/16/22 Anterior;Right Wrist 03/16/22 1000 Wrist 1 Diet Orders Report Diet NPO past midnight Except for: except sips with meds Bowel Prep (Golytely) allowed until 0500. starting at 0805 0000 DVT Prophylaxis: SCDs GI Prophylaxis: PPI PT/OT: ordered Code Status: Full Code Disposition: CVICU Signed: DARIELA WOOD MD 03/18/2022, 8:56 AM Cosigned by Ana Mercado MD at 03/18/2022 11:56 PM EDT Associated attestation - Ana Mercado MD - 03/18/2022 11:56 PM EDT CVICU Cardiology Attending: I saw and examined Mr. Eh Marques with the cardiology CVICU team including the cardiovascular disease fellow and CVICU residents on 03/18/2022. I reviewed the patient's past medical history and the history of present illness. I evaluated the current clinical course and laboratory results, and discussed the findings, assessments, and plans in detail. Leoncio Rollins Jr. is a 47 y.o. male with PMHx OLT in 2018 2/2 SAL cirrhosis, ESRD on HD MWF, HFintEF (45-50%) w/ Diastolic Dysfunction, WHO II Pulm HTN, presents with GIB Pt originally presented for w/o of potential UGIB. He endorses ALEXANDER and seemed volume overload, so was scheduled for RHC prior to procedure. RHC done this morning and revealed the following numbers RHC Numbers: RA 23 RV 70/20 PA 68/25 (42) Wedge: 25 CO 4.4 abelino, 4.1 thermo He was transferred to the CVICU for further SWAN guided fluid removal. Of note patient is anuric. We will proceed with dialysis. I agree with the resident's note as outlined below. Ana Mercado MD * Gabriel Booth MD - 03/18/2022 8:04 AM EDT [facility] PRE-SEDATION ASSESSMENT, HISTORY & PHYSICAL Date: 03/18/2022 Leoncio Rollins Jr. is a 47 y.o. year old male Pre-Procedure Diagnosis/Procedure Indication: ESRD, HFmrEF Planned Procedure: RHC NPO for solids >8 hours, NPO for [...] ??? ABDOMINAL SURGERY ??? BACK SURGERY 04/2020 [facility] ??? CREATION AV FISTULA ??? ESOPHAGOGASTRODUODENOSCOPY N/A [...] Left fracture leg with hardware placement ??? TIPS PROCEDURE 10/2016 ??? TIPS Revision [...] daily with breakfast. 10/17/17 YesBere Feng CNP blood sugar diagnostic Strp Use to test blood sugar up to 4 times a day. Diagnosis for use: E 9.65.For use with One Touch Verio meters. 10/18/17 Yes Bere Feng CNP blood-glucose meter (ONETOUCH VERIO SYSTEM) Misc Use as instructed. 10/18/17 Yes Bere Feng CNP calcium acetate,phosphat bind, (PHOSLO) 667 mg capsule Take 667 mg by mouth 3 times a day with meals. Yes Historical Provider, carBAMazepine (TEGRETOL) 200 mg tablet Take 200 mg by mouth 2 times a day. Yes Historical Provider, cinacalcet (SENSIPAR) 60 MG tablet Take 60 mg by mouth daily with breakfast. Yes Historical Provider, cycloSPORINE modified (CYCLOSPORINE MODIFIED) 25 MG capsule Take 4 capsules (100 mg total) by mouth2 times a day. 09/16/21 Yes Jack Ordoñez MD doxazosin (CARDURA) 8 MG tablet Take 8 mg by mouth at bedtime. 05/12/18 Yes Historical Provider, entecavir (BARACLUDE) 0.5 MG tablet Take 1 tablet (0.5 mg total) by mouth every 7 days. 01/05/21 YesJack Ordoñez MD ergocalciferol (ERGOCALCIFEROL) 1,250 mcg (50,000 unit) capsule Take 50,000 Units by mouth every Monday, , and Monday. Yes Historical Provider, fenofibrate micronized (LOFIBRA) 134 [...] mouth daily. 11/02/21 Yes Kate Santos MD hydrALAZINE (APRESOLINE) 100 MG tablet Take 1 tablet (100 mg total) by mouth every 8 hours. 06/25/20 Yes Jake Zavala MD insulin aspart U-100 (NOVOLOG) 100 unit/mL injection Administers per sliding scale 3 times daily with meals Yes Historical Provider, lancets (ONETOUCH DELICA LANCETS) 33 gauge Misc Use 1 strip as directed 4 times daily before meals and at bedtime. 10/18/17 Yes Bere Feng CNP lisinopriL (PRINIVIL) 40 MG tablet Take 1 tablet by mouth daily. 05/13/20 Yes Historical Provider, methocarbamoL (ROBAXIN) 500 MG tablet Take 500 mg by mouth 4 times daily before meals and at bedtime. Yes Historical Provider, metoprolol succinate (TOPROL-XL) 100 MG 24 hr tablet Take 100 mg by mouth at bedtime. 03/08/22 Yes Historical Provider, montelukast (SINGULAIR) 10 mg tablet Take 10 mg by mouth daily. 03/08/22 Yes Historical Provider, mycophenolate (CELLCEPT) 250 mg capsule Take 1 capsule (250 mg total) by mouth 2 times a day. 02/09/22 Yes Jack Ordoñez MD NIFEdipine (PROCARDIA-XL) 90 MG (OSM) 24 hr tablet Take 90 mg by mouth 2 times a day. 04/23/18 Yes Historical Provider, omega-3 fatty acids-fish oil 300-1,000 mg capsule Take 2 capsules by mouth 2 times a day with meals. Yes Historical Provider, ondansetron (ZOFRAN-ODT) 4 MG disintegrating tablet Take 4 mg by mouth every 8 hours as needed. 04/11/18 Yes Historical Provider, pantoprazole (PROTONIX) 40 MG tablet Take 1 tablet (40 mg total) by mouth daily. Patient taking differently: Take 40 mg by mouth in the morning and at bedtime. 06/25/20 Yes Jake Zavala MD pen needle, diabetic 32 gauge x 32 Ndle Use as directed to inject insulin 4 times daily. 10/16/17 Yes Bere Feng CNP polyethylene glycol (MIRALAX) 17 gram packet Take 17 g by mouth daily as needed (mild constipation (no BM for 24 hrs)). 06/25/20 Yes Jake Zavala MD sevelamer carbonate (RENVELA) 800 mg tablet Take 1,600 mg by mouth 3 times a day with meals. Yes Historical Provider, testosterone cypionate (DEPOTESTOTERONE CYPIONATE) 200 mg/mL injection Inject into the muscle. Yes Historical Provider, VASCEPA 1 gram Cap TAKE 2 Capsule by mouth twice daily 03/08/22 Yes Historical Provider, cholecalciferol, vitamin D3, 1,250 mcg (50,000 unit) capsule take 1 Capsule by mouth 3 times weekly01/06/22 Historical Provider, gabapentin (NEURONTIN) 800 MG tablet Take 800 mg by mouth 2 times a day. 03/08/22 Historical Provider, hydrOXYzine HCL (ATARAX) 25 MG tablet 03/14/22 Historical Provider, lidocaine (LIDODERM) 5 % APPLY 1 Film on skin daily 04/26/21 Historical Provider, proMETHazine (PHENERGAN) 12.5 MG tablet Take by mouth. Historical Provider, Allergies: Tacrolimus Codeine Sulfate Codeine Abbreviated Review of Systems (ROS) Functional Capacity: AQUINO ACTIVITY SCALE: 3 - Walking on a flat surface for one or two blocks. Chest Pain: no Shortness of Breath/Dyspnea or Exertion: no Recent URI: no Airway, ASA Score & Sedation Specific History Concerns Mallampati: III Short Neck: Yes ASA Score: III - Moderate systematic disease with functional limitations Sedation-Specific History Concerns: Sleep apnea or use of CPAP/bilevel This patient was re-evaluated immediately prior to sedation administration. Focused Physical Exam: Height ; Weight ; BMI There is no height or weight on file to calculate BMI. Vitals: 03/18/22 0700 BP: 152/90 Pulse: 74 Resp: 20 Temp: 97.4 ??F (36.3 ??C) SpO2: 93% Neuro: AO x 3 Cardiovascular: RRR Respiratory: normal wob Sedation Plan: moderate Antibiotic prophylaxis is not indicated. Cosigned by Oliver Reed MD at 03/18/2022 9:14 AM EDT Associated attestation - Oliver Reed MD - 03/18/2022 9:14 AM EDT I have personally obtained the history, performed the physical examination, reviewed the pertinent laboratory and imaging data, discussed the case with the house staff on 03/18/2022 and agree with the assessment and plan. Oliver Reed MD * Ted DO Satinder - 03/16/2022 11:55 PM EDT Department of Internal Medicine History & Physical Patient: Leoncio Rollins Jr. CSN: [id number] Chief Complaint Hematochezia History of Present Illness Leoncio Rollins Jr. is a 47 y.o. male with PMHx OLT in 2018 2/2 SAL cirrhosis, ESRD on HD MWF, presenting as a transfer with hematochezia. Patient noticed blood in his stool after having a bowel movement this morning at dialysis and was unable to complete the last 45 minutes due to abdominal pain and nausea. Patient reports while at home later in the evening, he had such a large bowel movement that he felt he should be evaluated in the ED, however no blood was present. Has experienced similar sx in the past reportedly d/t esophageal ulcers. Most recent EGD available is from 2019 and shows reflux esophagitis (improved), gastritis, and duodenitis. Denies hematemesis or coffee ground emesis. Has chronically black stools 2/2 iron tabs. On arrival to OSH, patient was hypertensive at 228/106 but otherwise HDS and afebrile. He was givenhydralazine 20mg and clonidine 0.2 with improvement in BP. Labs notable for anemia with Hb 9.0 and leukopenia with WBC 4.7 and ANC 2400. INR 1.2, LFTs WNL. Lipase 86. CT suggestive of PUD, also with hepatomegaly, periportal edema, and splenomegaly with EV and minimal ascites. Patient was given a Protonix bolus and started on a drip. He was subsequently transferred to [facility] for further evaluation. Review of Systems Review of Systems Constitutional: Positive for diaphoresis and malaise/fatigue. Negative for chills, fever and weightloss. HENT: Negative for congestion and sinus pain. Eyes: Negative for blurred vision and double vision. Respiratory: Positive for shortness of breath (ALEXANDER). Negative for cough, hemoptysis and wheezing. Cardiovascular: Negative for chest pain, palpitations and leg swelling. Gastrointestinal: Positive for abdominal pain, blood in stool, diarrhea, heartburn and nausea. Negative for constipation, melena and vomiting. Musculoskeletal: Negative for joint pain and myalgias. Skin: Negative for itching and rash. Neurological: Negative for dizziness and headaches. Past Medical History Past Medical History: Diagnosis [...] ??? ABDOMINAL SURGERY ??? BACK SURGERY 04/2020 [facility] ??? CREATION AV FISTULA ??? ESOPHAGOGASTRODUODENOSCOPY N/A [...] TRANSPLANTATION N/A 10/08/2017 Procedure: TRANSPLANT LIVER; Surgeon: mAi Rossi MD; Location: OR; Service: Transplant; Laterality: N/A; ??? OTHER SURGICAL HISTORY Left fracture leg with hardware placement ??? TIPS PROCEDURE 10/2016 ??? TIPS Revision 04/2017 ??? TYMPANOSTOMY TUBE PLACEMENT 07/2020 Family History Family History Problem Relation Age of Onset ??? Diabetes Sister ??? Anesthesia problems Neg Hx Social [...] Female control/protection: Condom Other Topics Concern ??? Not on file Social History Narrative ??? Not on file Social Determinants of Health Financial Resource Strain: Not on file Physical Activity: Not on file Stress: Not on file Social Connections: Not on file Housing Stability: Not on file Medications Home Meds: Prior to Admission medications Medication Sig Start Date End Date Taking? Authorizing Provider ALPRAZolam (XANAX) 0.5 MG tablet Take 0.5 mg by mouth if needed for Sleep. Yes Historical Provider, aspirin 81 MG chewable tablet Chew 1 tablet (81 mg total) by mouth daily with breakfast. 10/17/17 YesBere Feng CNP blood sugar diagnostic Strp Use to test blood sugar up to 4 times a day. Diagnosis for use: E 9.65.For use with One Touch Verio meters. 10/18/17 Yes Bere Feng CNP blood-glucose meter (ONETOUCH VERIO SYSTEM) [facility] Use as instructed. 10/18/17 Yes Bere Feng CNP calcium acetate,phosphat bind, (PHOSLO) 667 mg capsule Take 667 mg by mouth 3 times a day with meals. Yes Historical Provider, carBAMazepine (TEGRETOL) 200 mg tablet Take 200 mg by mouth 2 times a day. Yes Historical Provider, cinacalcet (SENSIPAR) 60 MG tablet Take 60 mg by mouth daily with breakfast. Yes Historical Provider, cycloSPORINE modified (CYCLOSPORINE MODIFIED) 25 MG capsule Take 4 capsules (100 mg total) by mouth2 times a day. 09/16/21 Yes Jack Ordoñez MD doxazosin (CARDURA) 8 MG tablet Take 8 mg by mouth at bedtime. 05/12/18 Yes Historical Provider, entecavir (BARACLUDE) 0.5 MG tablet Take 1 tablet (0.5 mg total) by mouth every 7 days. 01/05/21 YesJack Ordoñez MD ergocalciferol (ERGOCALCIFEROL) 1,250 mcg (50,000 unit) capsule Take 50,000 Units by mouth every Monday, , and Monday. Yes Historical Provider, fenofibrate micronized (LOFIBRA) 134 [...] 11/02/21 Yes Kate Santos MD gabapentin (NEURONTIN) 400 MG capsule Take 400 mg by mouth at bedtime. Yes Historical Provider, hydrALAZINE (APRESOLINE) 100 MG tablet Take 1 tablet (100 mg total) by mouth every 8 hours. 06/25/20 Yes Jake Zavala MD insulin aspart U-100 (NOVOLOG) 100 unit/mL injection Administers per sliding scale 3 times daily with meals Yes Historical Provider, lancets (ONETOUCH DELICA LANCETS) 33 gauge Misc Use 1 strip as directed 4 times daily before meals and at bedtime. 10/18/17 Yes Bere Feng CNP lisinopriL (PRINIVIL) 40 MG tablet Take 1 tablet by mouth daily. 05/13/20 Yes Historical Provider, methocarbamoL (ROBAXIN) 500 MG tablet Take 500 mg by mouth 4 times daily before meals and at bedtime. Yes Historical Provider, metoprolol tartrate (LOPRESSOR) 25 MG tablet Take 1 tablet (25 mg total) by mouth 2 times a day. 06/25/20 Yes Jake Zavala MD mycophenolate (CELLCEPT) 250 mg capsule Take 1 capsule (250 mg total) by mouth 2 times a day. 02/09/22 Yes Jack Ordoñez MD NIFEdipine (PROCARDIA-XL) 90 MG (OSM) 24 hr tablet Take 90 mg by mouth 2 times a day. 04/23/18 Yes Historical Provider, omega-3 fatty acids-fish oil 300-1,000 mg capsule Take 2 capsules by mouth 2 times a day with meals. Yes Historical Provider, ondansetron (ZOFRAN-ODT) 4 MG disintegrating tablet Take 4 mg by mouth every 8 hours as needed. 04/11/18 Yes Historical Provider, pantoprazole (PROTONIX) 40 MG tablet Take 1 tablet (40 mg total) by mouth daily. Patient taking differently: Take 40 mg by mouth in the morning and at bedtime. 06/25/20 Yes Jake Zavala MD pen needle, diabetic 32 gauge x Ndle Use as directed to inject insulin 4 times daily. 10/16/17 Yes Bere Feng CNP polyethylene glycol (MIRALAX) 17 gram packet Take 17 g by mouth daily as needed (mild constipation (no BM for 24 hrs)). 06/25/20 Yes Jake Zavala MD sevelamer carbonate (RENVELA) 800 mg tablet Take 1,600 mg by mouth 3 times a day with meals. Yes Historical Provider, cholecalciferol vitamin D3, 1,250 mcg (50,000 unit) capsule take 1 Capsule by mouth 3 times weekly01/06/22 Historical Provider, hydrOXYzine HCL (ATARAX) 25 MG tablet 03/14/22 Historical Provider, lidocaine (LIDODERM) 5 % APPLY 1 Film on skin daily 04/26/21 Historical Provider, metoprolol succinate (TOPROL-XL) 100 MG 24 hr tablet Take 100 mg by mouth at bedtime. 03/08/22 Historical Provider, montelukast (SINGULAIR) 10 mg tablet Take 10 mg by mouth daily. 03/08/22 Historical Provider, proMETHazine (PHENERGAN) 12.5 MG tablet Take by mouth. Historical Provider, testosterone cypionate (DEPOTESTOTERONE CYPIONATE) 200 mg/mL injection Inject into the muscle. Historical Provider, VASCEPA 1 gram Cap TAKE 2 Capsule by mouth twice daily 03/08/22 Historical Provider, melatonin 3 mg Tab Take 2 tablets (6 mg total) by mouth at bedtime. 06/25/20 03/16/22 Jake Zavala MD Inpatient Meds: Scheduled: ??? polyethylene glycol 2,000 mL Oral Once And ??? [START ON 03/17/2022] polyethylene glycol 2,000 mL Oral Once Continuous: PRN: Vital Signs Temp: [97.2 ??F (36.2 ??C)] 97.2 ??F (36.2 ??C) Heart Rate: [85] 85 Resp: [18] 18 BP: (176-181)/(83-110) 176/83 No intake or output data in the 24 hours ending 03/16/22 2210 Physical Exam Physical Exam Vitals and nursing note reviewed. Constitutional: General: He is not in acute distress. Appearance: He is obese. He is not ill-appearing or toxic-appearing. HENT: Head: Normocephalic and atraumatic. Nose: Nose normal. Mouth/Throat: Mouth: Mucous membranes are moist. Pharynx: Oropharynx is clear. Eyes: General: No scleral icterus. Extraocular Movements: Extraocular movements intact. Cardiovascular: Rate and Rhythm: Normal rate and regular rhythm. Heart sounds: Normal heart sounds. Pulmonary: Effort: Pulmonary effort is normal. No respiratory distress. Breath sounds: Examination of the left-lower field reveals decreased breath sounds. Decreased breath sounds present. No wheezing. Abdominal: General: Bowel sounds are normal. There is no distension. Palpations: Abdomen is soft. Tenderness: There is no abdominal tenderness. There is no guarding. Hernia: A hernia is present. Hernia is present in the ventral area. Comments: Large scar on abdomen Musculoskeletal: General: No tenderness. Normal range of motion. Cervical back: Normal range of motion and neck supple. Right lower leg: No edema. Left lower leg: No edema. Comments: Fistula LUE Skin: General: Skin is warm and dry. Coloration: Skin is not jaundiced. Neurological: General: No focal deficit present. Mental Status: He is alert and oriented to person, place, and time. hernia, large scar, little scars lower right abdomen, morbidly obese, no LEATHA edema, dec L lower lung sounds Fistula LUE Laboratory Data CBC 11/01/2021 \ 9.7 / 5.3 \ / 207 / \ / 28.6 \ Differential 10/31/2021 N 68.9 L 21.9 M 7.9 E 1.1 B 0.2 Renal 11/01/2021 139 98 53 / ___ __ / 145 \ 5.3 29 8.46 \ Ca 8.3 (11/01/2021) Mg 1.9 (11/01/2021) Phos 6.9 (11/01/2021) Lipids Lab Results Component Value Date CHOLTOT 236 (H) 09/21/2021 TRIG 264 (H) 09/21/2021 HDL 44 (L) 09/21/2021 LDL 139 09/21/2021 LFTs 10/31/2021 \ 0.5 / \ 0.0 \ / / \ PT/INR/PTT - 07/19/2020 PT 14.5 INR 1.1 PTT 28.6 Invalid input(s): WBCCAST, GRANCAST No results found for: NTPROBNP Lab Results Component Value Date TSH 3.59 01/27/2020 FREET4 1.03 10/20/[address] AP at OSH: - Mildly worsened hepatomegaly with periportal edema - Wall thickening of distal stomach and duodenum representing possible PUD - Spelnomegalywith perigastric and EV suggesting portal HTN - Minimal ascites Assessment & Plan Leoncio Oviedo Eh Parra. is a 47 y.o. male being admitted to the hospital for GIB. # Anemia 2/2 GIB Hb 9.0 --> 8.6. DDx includes brisk UGIB likely 2/2 PUD vs LGIB. Patient with reportedly normal colonoscopy within the last few months however reports hx multiple esophageal ulcers. EGD from 2019 with reflux esophagitis, gastritis, and duodenitis.S/p 80mg IV Protonix and gtt at OSH. 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 CT A/P with hepatomegaly, minimal ascites, and sequelae of portal HTN including varices. INR 1.2, other LFTs WNL, plt WNL. - Hepatology consult for IS management and any further workup for ? rejection - US with Dopplers # ESRD on HD MWF Started dialysis 2.5 years ago, patient reports ESRD is 2/2 IS. Unable to complete dialysis today d/t sx described above. Electrolytes stable. - Consult nephrology for IP HD # HTN On hydralazine 100mg q8h, lisinopril 40mg daily, Toprol XL 100mg daily, and nifedipine 90mg BID. - Antihypertensives held in setting of GIB # Hypoxia 87% overnight while sleeping. Suspect 2/2 JC but cannot r/o CHF given hx severe HTN. Last echo 2019 with LVH and normal EF. - CXR - Consider echo if unimproved with cpap overnight # Leukopenia Likely 2/2 cyclosporine, MMF, and carbamazepine. CTM. Chronic conditions: # DM - SSI while NPO # HLD - continue fenofibrate # GERD - on Protonix # Neuropathy - continue carbamazepine # JC # Pulmonary HTN likely 2/2 JC Nutrition: Diet Orders Report Diet NPO past midnight Except for: except sips with meds Bowel Prep (Golytely) allowed until 0500. starting at 08/04 0000 Diet clear liquid Clear Liquid; No; clear liquid no red and no purple starting at 08/ 2159 Code Status: Prior Signed: TED BARROW DO 03/16/2022, 10:10 PM Cosigned by Kelsey Carcamo MD at 03/17/2022 8:54 PM EDT Associated attestation - Kelsey Carcamo MD - 03/17/2022 8:54 PM EDT Pt seen, chart reviewed and pt examined on rounds with GI daniel team/resident this AM. Chart reviewed. Agree with plan. Briefly, 47yo with history of OLT for SAL cirrhosis in 2018, ESRD (d/t DM, HTN) presented to an OSH with complaint of blood in stool. CT performed at the OSH suggested acute rejection, possible PUD and varices. Hb 9, baseline Pt with history of sleep apnea however is not using CPAP. ECHO 2020 showed dilated RV and RA. Repeat ECHO, particularly in setting of pt requiring sedation for evaluation hematochezia. Anes consult Card consult Plan for colonoscopy/EGD potentially 03/18/22. documented in this encounter Procedure Notes * Roxann Moore MD - 03/23/2022 9:13 AM EDT [id number] Procedure Date: 03/23/2022 9:13 AM Patient Name: Leoncio Rollins Date of : 1975 Admit Type: Inpatient Age: 47 Gender: Male Note Status: Finalized Attending MD: Roxann Moore , Procedure: Colonoscopy Indications: Hematochezia Patient Profile: 47yo male with history of ESRD, OLT in 2018 here for hematochezia however transferred to CVICU for volume overload requiring hemodynamic monitoring. Also having abdominal pain and reports history of gastric ulcers. Providers: Wilmer Jerez (Fellow) Referring MD: Provider Not in System Medicines: Monitored Anesthesia Care Complications: No immediate [...] procedure were verified by the physician, the nurse, the section supervisor and the technician automatic in the procedure room. Mental Status Examination: [...] patient was re-assessed after the procedure. After I obtained informed consent, the scope was passed under direct vision. Throughout the procedure, the patient's blood pressure, pulse, and oxygen saturations were monitored continuously. The Colonoscope was introduced through the anus and advanced to the cecum, identified by appendiceal orifice and ileocecal valve. The colonoscopy was performed without difficulty. The patient tolerated the procedure well. The quality of the bowel preparation was good. The ileocecal valve, appendiceal orifice, and rectum were photographed. Findings: The perianal and digital rectal examinations were normal. A large amount of semi-liquid stool was found in the descending colon, interfering with visualization. Lavage of the area was performed using a large amount, resulting in clearance with fair visualization. Other segments of colon with good visualization. Non-bleeding internal hemorrhoids were found during retroflexion. The exam was otherwise without abnormality with no evidence of bleeding or stigmata of previous bleeding Estimated Blood Loss: Estimated blood loss was minimal. Impression: - Stool in the descending colon. - Non-bleeding internal hemorrhoids. - The examination was otherwise normal. - No specimens collected. Recommendation: - Return patient to hospital daniel for ongoing care. - Resume previous diet. - Continue present medications. - Repeat colonoscopy (date not yet determined) for surveillance. Procedure Code(s): --- Professional --- 61724, GC, Colonoscopy, flexible; diagnostic, including collection of specimen(s) by brushing or washing, when performed (separate procedure) Diagnosis Code(s): --- Professional --- K64.8, Other hemorrhoids K92.1, Melena (includes Hematochezia) CPT copyright 2020 [employer]. All rights reserved. The codes documented in this report are preliminary and upon control systems designer review may be revised to meet current compliance requirements. ROXANN MOORE Roxann Moore, 03/23/2022 9:51:42 AM Husam Wilmer Hoyos, 03/23/2022 9:50:30 AM Scope Withdrawal Time 0 hours 8 minutes 24 seconds Total Procedure Duration Time 0 hours 15 minutes 38 seconds Scope In: 9:18:06 AM Scope Out: 9:33:[address] [place] [address] * Roxann Moore MD - 03/23/2022 9:04 AM EDT [id number] Procedure Date: 03/23/2022 9:04 AM Patient Name: Leoncio Rollins Date of : 1975 Admit Type: Inpatient Age: 47 Gender: Male Note Status: Finalized Attending MD: Roxann Moore , Procedure: Upper GI endoscopy Indications: Dyspepsia Patient Profile: 47yo male with history of ESRD, OLT in 2018 here for hematochezia however transferred to CVICU for volume overload requiring hemodynamic monitoring. Also having abdominal pain and reports history of gastric ulcers. Providers: Wilmer Jerez (Fellow) Referring MD: Provider Not in System Medicines: Monitored Anesthesia Care Complications: No immediate [...] procedure were verified by the physician, the nurse, the section supervisor and the technician automatic in the procedure room. Mental Status Examination: [...] and oxygen saturations were monitored continuously. The Endoscope was introduced through the mouth, and advanced to the second part of duodenum. The upper GI endoscopy was accomplished without difficulty. The patient tolerated the procedure well. Findings: A small hiatal hernia was present. A 6 mm scar was found in the lower third of the esophagus. One non-bleeding superficial gastric ulcer with a clean ulcer base (Reinaldo Class III) was found on the lesser curvature of the stomach. The lesion was 5 mm in largest dimension. Biopsies were taken with a cold forceps for histology for evaluation of CMV/HSV/H. pylori. Localized mildly erythematous mucosa without bleeding was found at the incisura. Diffuse mucosal changes characterized by discoloration were found in the second portion of the duodenum consistent with hemosiderin. The exam of the duodenum was otherwise normal. Estimated Blood Loss: Estimated blood loss was minimal. Impression: - Small hiatal hernia. - Non-bleeding gastric ulcer with a clean ulcer base (Reinaldo Class III). Biopsied. - Erythematous mucosa in the incisura. - Mucosal changes in the duodenum. Recommendation: - Await pathology results. - Repeat upper endoscopy in 8 weeks for surveillance. - Continue PPI PO BID - Return to liver clinic as previously scheduled. Procedure Code(s): --- Professional --- 87730, Esophagogastroduodenoscopy, flexible, transoral; with biopsy, single or multiple Diagnosis Code(s): --- Professional --- K44.9, Diaphragmatic hernia without obstruction or gangrene K25.9, Gastric ulcer, unspecified as acute or chronic, without hemorrhage or perforation K31.89, Other diseases of stomach and duodenum R10.13, Epigastric pain CPT copyright 2020 [employer]. All rights reserved. The codes documented in this report are preliminary and upon control systems designer review may be revised to meet current compliance requirements. ROXANN MOORE Roxann Moore, 03/23/2022 9:49:40 AM Husam Wilmer Hoyos, 03/23/2022 9:45:30 AM Total Procedure Duration Time 0 hours 7 minutes 26 seconds Scope In: 9:03:43 AM Scope Out: 9:11:[address] [place] [address] [id number] * Dariela Wood MD - 03/18/2022 8:54 PM EDTAssociated Order(s): Insert Arterial Line Leoncio Rollins Jr. is a 47 y.o. male patient. 1. Hematochezia 2. Right heart enlargement Past Medical History: Diagnosis Date ??? Acute [...] osteomyelitis (CMS Dx) ??? Vitamin D deficiency Blood pressure 196/72, pulse 85, temperature 98.5 ??F (36.9 ??C), temperature source Strawberry, resp. rate 20, weight (!) 305 lb 1.9 oz (138.4 kg), SpO2 90 %. Insert Arterial Line Date/Time: 03/18/2022 8:54 PM Performed by: Dariela Wood MD Authorized by: Dariela Wood MD Consent: Consent obtained: Written Consent given by: Patient Risks, benefits, and alternatives were discussed: yes [place] protocol: Patient identity confirmed: Verbally with patient and arm band Indications: Indications: hemodynamic monitoring Pre-procedure details: Skin preparation: Chlorhexidine Sedation: Sedation type: None Anesthesia: Anesthesia method: Local infiltration Local anesthetic: Lidocaine 1% w/o epi Procedure details: Location: R radial Michael's test performed: yes Number of attempts: 2 Transducer: waveform confirmed Post-procedure details: Post-procedure: Biopatch applied, secured with tape, sterile dressing applied and sutured Procedure completion: Tolerated well, no immediate complications DARIELA WOOD 03/18/2022 Cosigned by Ana Mercado MD at 03/19/2022 12:01 AM EDT Associated attestation - Ana Mercado MD - 03/19/2022 12:01 AM EDT I discussed and agree with A line insertion procedure. Ana Mercado MD documented in this encounter Consult Notes * Bridgett Arias RD - 03/25/2022 9:15 AM EDTAssociated Order(s): IP CONSULT TO NUTRITION SERVICES [facility] Nutrition Therapy Follow-Up Reason(s) for Completion: Physician/Nursing Referral- pt request Diet Order/Nutrition Support: Cardiac with thin liquids; 2 L fluid restriction; 2 g Sodium Pertinent Information: Leoncio Rollins Jr. is a 47 y.o. male with history of OLT in 2018 2/2 SAL cirrhosis,??ESRD on HD MWF,??HFintEF (45-50%) w/ Diastolic Dysfunction, WHO II Pulm HTN, MRSA vertebral osteomyelitis (2019), and PUD who is on hospital day #9 following admission for Hematochezia/GI Bleed. No N/V/D/C, bowel meds ordered. Eating and drinking well. PO intake 100% of meals. Last BM: 03/24. Pt ordering ~3 meals/day. BUN/Creat 32/6.48, glucose ranging from 105-197 03/24-03/25. Admission wt 305 lbs and CBW 295 lbs- likely fluid loss related to iHD. Spoke with pt at bedside this afternoon. Pt had questions regarding Cardiac diet + Renal diet + wt loss. Advised pt to speak with RD at dialysis clinic, but also provided basic info to patient on wt loss. Spoke about 30 mins ofphysical activity/day, adding in fruits and vegetables as able with renal labs and having lean meatrather than fried/breaded meats. Pt stated he only drinks water and diet soda if he has one. Pt didattribute wt loss to fluid loss. Scheduled Meds: ??? carBAMazepine 200 mg Oral BID ??? carvediloL 12.5 mg Oral BID WC ??? cinacalcet 30 mg Oral Daily with breakfast ??? cycloSPORINE modified 100 mg Oral BID ??? entecavir 0.5 mg Oral Q7 Days ??? epoetin giancarlo-epbx 5,000 Units Intravenous Once per day on Mon ??? fenofibrate 160 mg Oral Daily 09 ??? folic acid 1 mg Oral Daily 0900 ??? gabapentin 100 mg Oral TID ??? heparin 5,000 Units Subcutaneous 3 times per day ??? hydrALAZINE (APRESOLINE) oral tablet 100 mg Oral 3 times per day ??? insulin lispro 0-5 Units Subcutaneous TID AC ??? isosorbide mononitrate 90 mg Oral Daily 09 ??? lisinopriL 40 mg Oral Daily 09 ??? magnesium oxide 400 mg Oral BID ? ? methocarbamoL 500 mg Oral 4x Daily AC & HS ??? montelukast 10 mg Oral Daily 0900 ??? mycophenolate 250 mg Oral BID ??? NIFEdipine 90 mg Oral BID ??? pantoprazole 40 mg Oral BID ??? polyethylene glycol 238 g Oral Daily 899 ??? sevelamer carbonate 1,600 mg Oral TID WC ??? sodium chloride 10 mL Intravenous QS ??? terazosin 10 mg Oral Nightly (2099) Continuous Infusions: ??? sodium chloride 0.9 % PRN Meds:acetaminophen, dextrose 10% in water OR dextrose 10% in water, glucose, oxyCODONE-acetaminophen, peppermint oiL Pertinent Labs: Lab Results Component Value Date CREATININE 6.48 (H) 03/25/2022 BUN 32 (H) 03/25/2022 NA 135 03/25/2022 K 4.7 03/25/2022 CL 96 (L) 03/25/2022 CO2 28 03/25/2022 Lab Results Component Value Date ALBUMIN 4.2 03/25/2022 Lab Results Component Value Date PREALBUMIN 20.0 06/09/2020 Lab Results Component Value Date CALCIUM 8.1 (L) 03/25/2022 PHOS 3.7 03/25/2022 Lab Results Component Value Date MG 2.1 03/25/2022 Lab Results Component Value Date POCGMD 135 (H) 03/25/2022 Lab Results Component Value Date HGBA1C 5.8 (H) 03/17/2022 Lab Results Component Value Date CRP 14.3 (H) 09/03/2020 Weight History: Wt Readings from Last 5 Encounters: 03/25/22 (!) 295 lb 3.1 oz (133.9 kg) 12/22/21 (!) 299 lb 1.6 oz (135.7 kg) 09/21/21 (!) 274 lb (124.3 kg) 08/26/21 (!) 263 lb 7.2 oz (119.5 kg) 07/15/21 (!) 266 lb 12.8 oz (121 kg) Established Estimated Nutrition Needs: Needs based On: 72.7 kg IBW Kcals/day: 3152-4043 kcals (30-35 kcals/kg IBW) Protein g/day: 145-181 grams (2-2.5 grams/kg IBW) Carbohydrate g/day: 60-75 grams per meal Fluid ml/day: ~1 ml/kcal or per MD order Established Nutrition Diagnosis Nutrition Diagnosis: Increased Nutrient Needs Related To: metabolic demand As Evidenced By: pt with ESRD on iHD Established Nutrition Intervention: Monitor PO Intake/Tolerance Established Goals: Total energy intake improved as evidenced by PO intake at least 75-100% of meals/supplements/snacks within 3 days Goals: Met- ongoing Nutrition Status Classification: Moderately Compromised Discharge Planning and Education: Discharge plan of care for nutrition pending clinical course. Follow up per nutrition services protocol while inpatient. Additional Recommendation(s) to Physicians: No New Recommendations Area RD to provide follow up and make further recommendations/adjustments to nutrition care plan asneeded. Bridgett Arias RDN, LDN Clinical Dietitian Contact via Bloominous * Saleem Shipley RN - 03/22/2022 2:32 PM EDT HEALTH Care Management/Social Work Assessment Patient Information Hospital Day: 4 Inpatient/Observation: Inpatient Admit Date: 03/16/2022 Admission Diagnosis: Hematochezia [K92.1] Attending provider: Ana Mercado MD PCP: Edgar Fournier MD Home Pharmacy: [facility] [address] [place] [address] [facility], [place] - [address] [facility] [address] [facility] [id number] [facility] [address] [facility] [facility] [address] [address] [facility] [id number] [facility] [address] [facility] [id number] Pertinent Medications Anticoagulation therapy: No New Diabetic: No Issues related to obtaining medications: none Payor Information Medical Insurance Coverage: Payor: [employer]VANT[employer] (HMO SNP) / Plan: [employer] ADVANTAGE / Product Type: *No Product type* / Secondary Payor: Medicaid [place] Functional Assessment Functional Assessment Assessment Information Obtained From:: Patient Current Mental Status: Awake, Oriented to Person, Oriented to Place, Oriented to Time, Oriented to Situation Mental Status Prior to Admission: Unable to Assess Mental Health History: No Suicide Attempts: No Activities of Daily Living: Partial Assistance Needed Work History: Disabled Marital Status: Number of children and their names: 2 Relative Search Completed: No Demographics Correct:: Yes Discharge Destination: Home Current Living Arrangements Current Living Arrangements Current Living Arrangements: Home Type of Housing: House Who do you live with?: With Family What family member?: spouse and children One Story or Two (check all that apply): One Story, Live on first floor, Bedroom on first floor, Bath on first floor Enter the number of steps and rails to enter the residence: ramp Enter the number of steps and rails inside the residence: 0 History of Falls?: No Community Services Community Services Community Services at Home: DME, Dialysis, Respiratory DME Current: Shower Chair, 3n1 BSC, Wheelchair, Cane (rollator) Respiratory Company Name/Phone #: [facility] [phone] Oxygen Needs: CPAP Dialysis Needs: Hemodialysis HD Clinic Name and Location: [facility] [phone] fax: [phone] HD days of week: MWF HD time of day: 745 HD Transportation provided by: self Was any abuse reported by patient?: No Support Systems Emergency contact: Extended Emergency Contact Information Primary Emergency Contact: Kym Rollins Address: [facility] [place] [address] [facility] Mobile Relation: Spouse Secondary Emergency Contact: Kimberly Rollins [facility] Relation: Mother Support Systems Legal Status: N/A Primary Caregiver: Self, Family Times of available support: Limited 06/03 hands on (add comment) Marital Status: Number of children and their names: 2 Relative Search Completed: No Demographics Correct:: Yes Discharge Destination: Home Next of Kin: Kym Rollins Next of Kin Relationship: Spouse Next of Kin Assessment Information Obtained From:: Patient Other Pertinent Information Pt's STEPHANIE is his spouse Kym. Pt receives HD from [facility] [phone] . MWF, drives self. Chair time 7:45am Below information obtained by bedside RN: Advance Directives (For Healthcare) Advance Directive: Patient does not have advance directive Healthcare Agent Appointed: No Pre-existing DNR/DNI Order: No Patient Requests Assistance: No Discharge Plan Met with patient to initiate discussion regarding discharge planning. Introduced self and role of case management/social work and provided contact information. Pt reports living at home with spouse and his children, there is a ramp to enter the one level home. Pt reports needing assistance with ADLs. Pt reports using a shower chair, cane, BSC and rollator inthe home. Pt reports not being active with any HHc and no use of O2 in the home. Pt has a CPAP supplied through [facility] [phone]. Pt reports his spouse will be able to transport him home upon DC. Barriers to Discharge Barriers to Discharge: (n/a) Anticipated Discharge Plan: home Anticipated Discharge Date: 03/24/22 Anticipated Transportation: family Patient/Family aware and taking part in the discharge plan. Patient/family educated that once post-acute care needs have been identified, a provider list applicable to the identified post-acute care needs as well as the insurance provider will be provided, and patient/family have the freedom to choose their provider(s); financial interest(s) are disclosed as appropriate. Saleem Shipley RN Phone Number: [phone] * Wilmer Hoyos MD - 03/21/2022 6:24 PM EDTAssociated Order(s): IP CONSULT TO LIVER Images from the original note were not included. Department of Digestive Diseases Hepatology Consult Note Name: Leoncio Rollins Jr. CSN: [id number] Consulted by: Ana Mercado MD Reason for consult: Hematochezia History of Present Illness: Leoncio Rollins Jr. is a 47 y.o. male with a PMHx of SAL cirrhosis s/p OLT in 2018, ESRD on HD who is currently admitted to the CVICU for volume overload. Hepatology is consulted due to hematochezia. Patient states that he initially presented to the hospital due to abdominal pain and a single episodes of rectal bleeding. This occurred on 03/16 while at HD and due to the abdominal pain and bloody BMhe was sent to the hospital for further evaluation. Presented to an OSH where he was severely hypertensive and CT imaging showed signs of PUD, ascites, and EV. Was transferred to [facility] GI wards where plans were made for EGD/Colonoscopy. RHC was done first showing severe volume overload and he was therefore transferred to the CVICU for management of HFpEF and RV failure. Patient denies any issues with his transplanted liver. Has been taking his Cyclosporin 100mg BID, and Cellcept 250mg BID without issues. Takes entecavir every Monday. Review of Systems Denies: fever, MACK, CP, SOB, dysphagia, abd pain, N/V/D, dysuria, LE swelling, rash Past Medical History: Diagnosis Date ??? Acute [...] ??? ABDOMINAL SURGERY ??? BACK SURGERY 04/2020 [facility] ??? CREATION AV FISTULA ??? ESOPHAGOGASTRODUODENOSCOPY N/A [...] History Problem Relation Age of Onset ??? Diabetes Sister ??? Anesthesia problems Neg Hx Social History Tobacco Use ??? Smoking status: Never Smoker ??? Smokeless tobacco: Never Used Substance Use Topics ??? Alcohol use: No Allergies Allergen Reactions ??? Tacrolimus Other (See Comments) Anxious feeling and muscle jerking. TOLERATED ENVARSUS BETTER THAN PROGRAF. ??? Codeine Sulfate Hyper ??? Codeine Other (See Comments) Becomes hyper Scheduled Meds: ??? calcium acetate(phosphat bind) 667 mg Oral TID WC ??? carBAMazepine 200 mg Oral BID ??? carvediloL 12.5 mg Oral BID WC ??? cinacalcet 60 mg Oral Daily with breakfast ??? cycloSPORINE modified 100 mg Oral BID ??? fenofibrate 160 mg Oral Daily 0900 ??? folic acid 1 mg Oral Daily 0900 ??? gabapentin 800 mg Oral BID ??? hydrALAZINE (APRESOLINE) oral tablet 100 mg Oral 3 times per day ??? insulin lispro 0-5 Units Subcutaneous TID AC ??? isosorbide mononitrate 60 mg Oral Daily 0900 ??? lisinopriL 40 mg Oral Daily 0900 ? ? methocarbamoL 500 mg Oral 4x Daily AC & HS ??? montelukast 10 mg Oral Daily 0900 ??? mycophenolate 250 mg Oral BID ??? NIFEdipine 90 mg Oral BID ??? pantoprazole (PROTONIX) IV 40 mg Intravenous BID6 ??? sevelamer carbonate 1,600 mg Oral TID WC ??? sodium chloride 10 mL Intravenous QS ??? terazosin 10 mg Oral Nightly (2100) Continuous Infusions: PRN Meds: acetaminophen, dextrose 10% in water OR dextrose 10% in water, glucose, oxyCODONE-acetaminophen, peppermint oiL Prior to Admission Meds: Medications Prior to Admission Medication Sig Dispense Refill Last Dose ??? ALPRAZolam (XANAX) 0.5 MG tablet Take 0.5 mg by mouth if needed for Sleep. ??? aspirin 81 MG chewable tablet Chew 1 tablet (81 mg total) by mouth daily with breakfast. 30 tablet 5 03/16/2022 at Unknown time ??? calcium acetate,phosphat bind, (PHOSLO) 667 mg capsule Take 667 mg by mouth 3 times a day with meals. 03/16/2022 at Unknown time ??? carBAMazepine (TEGRETOL) 200 mg tablet Take 200 mg by mouth 2 times a day. 03/16/2022 at Unknown time ??? cholecalciferol, vitamin D3, 1,250 mcg (50,000 unit) capsule Take 1 capsule by mouth three times weekly on Monday, , and Monday. ??? cycloSPORINE modified (CYCLOSPORINE MODIFIED) 25 MG capsule Take 4 capsules (100 mg total) by mouth 2 times a day. 720 capsule 1 03/16/2022 at Unknown time ??? doxazosin (CARDURA) 8 MG tablet Take 8 mg by mouth at bedtime. 03/16/2022 at Unknown time ??? entecavir (BARACLUDE) 0.5 MG tablet Take 1 tablet (0.5 mg total) by mouth every 7 days. 4 tablet 5 Past Week at Unknown time ??? fenofibrate micronized (LOFIBRA) 134 MG capsule Take 134 mg by mouth every morning before breakfast. 03/16/2022 at Unknown time ??? ferrous sulfate 325 (65 FE) MG tablet Take 1 tablet (325 mg total) by mouth daily with breakfast. 30 tablet 0 03/16/2022 at Unknown time ??? folic acid (FOLVITE) 1 MG tablet Take 1 tablet (1 mg total) by mouth daily. 30 tablet 0 03/16/2022 at Unknown time ??? gabapentin (NEURONTIN) 800 MG tablet Take 800 mg by mouth 2 times a day. ??? hydrALAZINE (APRESOLINE) 100 MG tablet Take 1 tablet (100 mg total) by mouth every 8 hours. 120tablet 0 03/16/2022 at Unknown time ??? insulin aspart U-100 (NOVOLOG) 100 unit/mL injection Administers per sliding scale 3 times daily with meals 03/16/2022 at Unknown time ??? lidocaine (LIDODERM) 5 % Place 1 patch onto the skin daily as needed. ??? methocarbamoL (ROBAXIN) 500 MG tablet Take 500 mg by mouth 4 times daily before meals and at bedtime. 03/15/2022 at Unknown time ??? metoprolol succinate (TOPROL-XL) 100 MG 24 hr tablet Take 100 mg by mouth at bedtime. 03/15/2022 at Unknown time ??? montelukast (SINGULAIR) 10 mg tablet Take 10 mg by mouth daily. 03/15/2022 at Unknown time ??? mycophenolate (CELLCEPT) 250 mg capsule Take 1 capsule (250 mg total) by mouth 2 times a day. 180 capsule 1 03/16/2022 at Unknown time ??? NIFEdipine (PROCARDIA-XL) 90 MG (OSM) 24 hr tablet Take 90 mg by mouth 2 times a day. 03/16/2022 at Unknown time ??? ondansetron (ZOFRAN-ODT) 4 MG disintegrating tablet Take 4 mg by mouth every 8 hours as needed. 03/16/2022 at Unknown time ??? pantoprazole (PROTONIX) 40 MG tablet Take 40 mg by mouth in the morning and at bedtime. ??? polyethylene glycol (MIRALAX) 17 gram packet Take 17 g by mouth daily as needed (mild constipation (no BM for 24 hrs)). 14 packet 0 Past Week at Unknown time ??? proMETHazine (PHENERGAN) 12.5 MG tablet Take 12.5 mg by mouth every 6 hours as needed. ??? sevelamer carbonate (RENVELA) 800 mg tablet Take 1,600 mg by mouth 3 times a day with meals. 03/16/2022 at Unknown time ??? testosterone cypionate (DEPOTESTOTERONE CYPIONATE) 200 mg/mL injection Inject into the muscle. Past Month at Unknown time ??? VASCEPA 1 gram Cap TAKE 2 Capsule by mouth twice daily 03/15/2022 at Unknown time Vitals: Temp: [96.8 ??F (36 ??C)-97.7 ??F (36.5 ??C)] 97.6 ??F (36.4 ??C) Heart Rate: [64-82] 80 Resp: [15-20] 15 BP: (141-161)/(67-87) 141/87 FiO2: [45 %] 45 % Intake/Output Summary (Last 24 hours) at 03/21/2022 1824 Last data filed at 03/21/2022 1800 Gross per 24 hour Intake 990 ml Output 4900 ml Net -3910 ml Physical Exam Gen: Well-developed, well nourished. No acute distress. HEENT: Nares patent. Mucous membranes pink/moist. No scleral icterus. Neck: Neck is supple. No JVD present. No tracheal deviation. No cervical lymphadenopathy. CV: Regular rate and rhythm. Normal S1 and S2. No murmurs/rubs/gallops. Lungs: Clear to auscultation bilaterally. No wheezes/rales/rhonchi. No respiratory distress. Abdomen: Soft, nontender, nondistended, no hepatosplenomegaly or palpable masses. No ascites present. No rebound or guarding present. Extremities: No bilateral lower extremity edema. No clubbing or cyanosis present. Skin: No bruising or rash noted. No spider angiomata or palmar erythema. Neuro: Alert and oriented to person, place, and time. CN 2-12 grossly intact. No gross motor defecits. No asterixis Psych: Normal mood and affect. Normal speech and behavior. Laboratory: Lab Results Component Value Date WBC 3.2 (L) 03/21/2022 HGB 9.1 (L) 03/21/2022 HCT 25.5 (L) 03/21/2022 MCV 101.4 (H) 03/21/2022 PLT 161 03/21/2022 Lab Results Component Value Date NA 136 03/21/2022 K 4.6 03/21/2022 CL 100 03/21/2022 CO2 26 03/21/2022 BUN 25 03/21/2022 CREATININE 5.05 (H) 03/21/2022 GLUCOSE 153 (H) 03/21/2022 CALCIUM 8.9 03/21/2022 PHOS 5.3 (H) 03/21/2022 Lab Results Component Value Date AST 12 (L) 03/16/2022 ALT 8 03/16/2022 BILITOT 0.6 03/16/2022 BILIDIRECT 0.23 03/16/2022 PROT 6.9 03/16/2022 ALBUMIN 4.0 03/21/2022 ALKPHOS 74 03/16/2022 Lab Results Component Value Date INR 1.2 (H) 03/16/2022 No results found for: AMYLASE Lab Results Component Value Date LIPASE 33 10/31/2021 Lab Results Component Value Date HEPAIGM Nonreactive 03/17/2022 HEPBCAB Reactive (A) 03/17/2022 No results found for: TERESA No results found for: SMOOTHMUSCAB Lab Results Component Value Date IRON 29 (L) 10/31/2021 TIBC 247 (L) 10/31/2021 FERRITIN 826.6 (H) 10/31/2021 No results found for: OCCULTBLD No results found for: AFP No results found for: CEA No results found for: CA125 Lab Results Component Value Date RFFALLBN51 1,355 (H) 10/31/2021 Lab Results Component Value Date FOLATE 4.10 (L) 10/31/2021 Microbiology: Lab Results Component Value Date LABGRAM Many Polymorphonuclear Leukocytes Seen 06/03/2020 LABGRAM Rare Gram Positive Cocci In Pairs; 06/03/2020 ISO2 Scant Growth (A) 10/25/2017 ISO2 Pseudomonas fluorescens (A) 10/25/2017 ISO2 Identified by MALDI-TOF MS (A) 10/25/2017 ISO2 Testing Performed at Laboratory (A) 10/25/2017 Images: X-ray Portable Chest Final Result IMPRESSION: No acute cardiopulmonary abnormality. Approved by Adam Taveras MD on 03/20/2022 7:20 AM EDT I have personally reviewed the images and I agree with this report. Report Verified by: Edgar Arellano MD at 03/20/2022 7:37 AM EDT X-ray Portable Chest Final Result IMPRESSION: No significant interval change. Approved by Sylvain Mcgowan DO on 03/19/2022 4:46 PM EDT I have personally reviewed the images and I agree with this report. Report Verified by: Edgar Arellano MD at 03/19/2022 5:05 PM EDT X-ray Portable Chest Final Result IMPRESSION: 1. Strawberry-Viviana catheter tip in the left lower lobe pulmonary artery.. Approved by Humble Mccracken on 03/19/2022 7:18 AM EDT I have personally reviewed the images and I agree with this report. Report Verified by: Yuli Etienne MD at 03/19/2022 7:44 AM EDT X-ray Portable Chest Final Result IMPRESSION: Right IJ pulmonary artery catheter tip overlies the right lower lobe pulmonary artery Report Verified by: Marcy Villagran MD at 03/18/2022 12:58 PM EDT US Abdomen Complete Final Result IMPRESSION: ABDOMEN 1. 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 2. Medical renal disease of the right kidney with left kidney not visualized. LIVER DOPPLER Patent hepatic vasculature with normal arterial waveforms. Approved by Jay Lucas DO on 03/17/2022 10:10 AM EDT I have personally reviewed the images and I agree with this report. Report Verified by: Manolo Rosenthal MD at 03/17/2022 10:32 AM EDT US Duplex Who-Pnu-Qcepxjy Comp Final Result IMPRESSION: ABDOMEN 1. 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 2. Medical renal disease of the right kidney with left kidney not visualized. LIVER DOPPLER Patent hepatic vasculature with normal arterial waveforms. Approved by Jay Lucas DO on 03/17/2022 10:10 AM EDT I have personally reviewed the images and I agree with this report. Report Verified by: Manolo Rosenthal MD at 03/17/2022 10:32 AM EDT X-ray Portable Chest Final Result IMPRESSION: No acute cardiopulmonary abnormality. Approved by Shell Thao MD on 03/17/2022 7:48 AM EDT I have personally reviewed the images and I agree with this report. Report Verified by: Adam Morelos MD at 03/17/2022 7:49 AM EDT Assessment/Plan: Leoncio Rollins Jr. is a 47 y.o. male with a PMHx of SAL cirrhosis s/p OLT in 2018, ESRD on HD who is currently admitted to the CVICU for volume overload. Hepatology is consulted due to hematochezia. #Hematochezia: Likely related to outlet bleeding though ischemic colitis vs diverticular bleeding also a consideration. Given one episode of hematochezia with stable Hgb, there is not urgent need forcolonoscopy. Patient reports that he had a colonoscopy within the last 6 months with removal of a couple small polyps. This was done as part of a kidney transplant workup. I do not have these results. He is also concerned for dyspepsia and episodes of severe abdominal pain. Given his history of PUD, EGD would be reasonable at time of colonoscopy. -Continue optimization in the CVICU. EGD and colonoscopy can be considered when stable for the floor. Please reach out to hepatology when reaching this stage #SAL cirrhosis s/p OLT in 2018 -Continue Cellcept 250mg BID, and Cyclosporin 100mg BID -Can check cyclosporin levels twice a week -Please give entecavir 0.5mg once a week. Start tomorrow Case to be discussed with attending physician Cristhian. Recommendations final following attestation. Wilmer Hoyos MD Gastroenterology/Hepatology Fellow- PGY 6 Pager [phone] Cosigned by Roxann Moore MD at 03/21/2022 7:42 PM EDT Associated attestation - Roxann Moore MD - 03/21/2022 7:42 PM EDT Attending Physician's Note: I have personally seen and examined the patient, reviewed the chart, imaging and labs on 03/21/22 .I discussed the case with with the fellow and agree with fellow's findings and plan as documented in the note. Copied / pasted information was reviewed and confirmed to be accurate. >10 point ROS was performed and negative unless otherwise documented in the note. Please see Dr. Hoyos's noteseparately for more details. Briefly, this is a 47 y.o. year old male with a complex medical history of obesity, CKD on HD and SAL cirrhosis status post OLT in 09/2017 who presented with abdominal pain, hematochezia and volume overload He underwent a RHC which showed severe PH 60/23 (40) with elevated biventricular pressures. He was diuresed. We are consulted for IS management and evaluation of hematochezia Patient reports abdominal pain starting one month ago. He had one episode of BRBPR in thee setting of being constipated. Hb stable. Endorses right sided pain and epigastric pain worse after eating Labs and imaging reviewed PE Vitals: 03/21/22 1600 03/21/22 1700 03/21/22 1800 03/21/22 1830 BP: 152/82 161/86 141/87 162/87 BP Location: Right arm Right arm Patient Position: Lying Sitting Pulse: 75 79 80 74 Resp: 15 16 15 16 Temp: 97.6 ??F (36.4 ??C) 97.5 ??F (36.4 ??C) TempSrc: Oral Oral SpO2: 96% 97% 97% 96% Weight: (!) 307 lb 6.4 oz (139.4 kg) Height: Gen: Well-developed, well nourished. No acute distress. HEENT: Mucous membranes pink/moist. No scleral icterus. Abdomen: Soft, non-tender, non-distended stomach, no hepatosplenomegaly or palpable masses. Bowel sounds present. No ascites present. No rebound or guarding present. Extremities: 1+ bilateral lower extremity edema. No clubbing or cyanosis present. Skin: No bruising or rash noted. No spider angiomata or palmar erythema. Neuro: Alert and oriented to person, place, and time. CN 2-12 grossly intact. No gross motor defecits. No asterixis Psych: Normal mood and affect. Normal speech and behavior. Assessment and Plan: 47 y.o. year old male with complex medical issues as detailed in HPI. Abdominal Pain and Hematochezia - Pain is much better after volume removal. Bleeding seems to be related to outlet bleeding in the setting of constipation - No further bleeding - Will plan for EGD and colonoscopy for evaluation of dyspepsia, abdominal pain and hematochezia once stable from a volume overload standpoint Status post OLT - Continue cyclosporine 100 mg BID, cellcept 250 mg BID and entecavir weekly - Normal liver enzymes with cyclo levels in the 40-50s This note was completely edited, written and [...] this patient. Please see the body of the fellow, and my note for supportive documentation related to the level ofservice for this complex medical patient. I have reviewed all prior notes. I have reviewed interval/ recent lab work including: CBC, renal, hepatic, INR, viral studies, and all other labs for chronic liver disease relating to their medical condition. I have independently reviewed the patients recent radiologic imaging including any CT scans, MRI, ultrasound or endoscopic procedures. Finally, I have reviewed independently any interval GI and liver pathology. Roxann Moore MD Transplant Hepatology [phone] (p) * Dariela Kimberley, DO - 03/17/2022 8:59 PM EDTAssociated Order(s): IP CONSULT TO CARDIOLOGY [facility] Department of Cardiovascular Health and Diseases General Cardiology Consultation Note Referring Physician: Kelsey Carcamo MD Reason for Consult: perioperative risk Assessment & Recommendations Leoncio Rollins Jr. is a 47 y.o. male presenting for cardiac evaluation of perioperative risk. The gentleman has a history of SAL cirrhosis s/p OLT, ESRD, DM2 on insulin, JC on BiPAP, HTN, HFmrEF and pulmonary hypertension (post- capillary by 2018 RH). He is here for hematochezia and is being considered for EGD/Colonoscopy. EGD/Colonoscopy is a relatively low risk procedure and risk stratification is limited as estimated risk of complications is typically for procedures of intermediate-high risk of issues. However, generally he has an elevated risk of perioperative /AK and cardiac arrest in the 10-15% range basedon an RCRI of 3. Additionally, he has had clinical HF and has a history of pulmonary hypertension with PASP estimated to be 61 mmHg by TTE. Therefore if he is deemed too high of risk by anesthesia/GI, he should undergo further evaluation of his PH. By exam and echo, he is not clearly in decompensated RV failure, however. He does have IVC dilation but no evidence of congestive hepatopathy and no reported ascites on US abdomen despite all of this weight gain. Additionally, patient with small vegetation on mitral valve and has a history of MRSE vertebral osteomyelitis diagnosed end of 2019 and he completed 8 weeks of antibiotics. Interestingly, no mitral vegetation noted on TTE prior to this diagnosis, nor in 03/02/2021 (after treatment), however now he has one. If he has endocarditis and has thrown clots to lungs, this could explain his symptoms as well. #Pulmonary hypertension WHO II; never reassessed #RV dilation/reduced function #Mitral valve vegetation #HFmrEF #Poorly controlled hypertension #JC on BiPAP #GI bleeding #Non-obstructive CAD (by CT coronary 2020 at OSH) #Prolonged QTc RECOMMENDATIONS: We should have a discussion between GI and anesthesia on how to best proceed, and if additional workup deemed necessary prior to EGD/Colonoscopy then we recommend the following: --Right heart catheterization, NPO @ IA --CTPA at discretion of primary team regarding this vegetation and his dyspnea, would need a V/Q scan for workup of PH --Pulmonology consultation --Blood cultures x 3, consider ID evaluation given his history, if blood cultures are positive or if we find evidence of embolization on any imaging, a SOCRATES is warranted for better characterization, right now he only meets 1 major and 0 minor criteria for IE based on our assessment. Patient seen and discussed with the attending french translator, Dr. Hernandez. Recommendations are considered preliminary until co-signed by the attending french translator. Follow up appointments with Cardiology can be scheduled by calling [phone]. Thank you for involving us in their care. Please callwith any questions. Dariela Chu, Fellow, Cardiovascular Health and Disease 03/17/2022 at 8:59 PM History of Present Illness Leoncio Rollins Jr. is a 47 y.o. male who was admitted on 03/16/2022 8:15 PM for evaluation of pre-operative risk stratification with an admission diagnosis of Abd pain. The General Cardiology service is being consulted for evaluation and management recommendations for pulmonary hypertension. Mr. Rollins has an extensive medical history and has suffered from HF in the past with pulmonary hypertension. He has had 2 months of worsening dyspnea on exertion, not being able to ambulate more than 100 ft without needing to take a break. He has 2-pillow orthopnea and increased weight gain despite being adherent to his dialysis schedule. He is here with hematochezia. Darker stools over the lastcouple of days. Hemoccult positive. All laboratory results were reviewed. All radiographic images and reports were reviewed. All laboratory and imaging results were discussed with the patient in detail. Past Medical History Past Medical History: Diagnosis [...] ??? ABDOMINAL SURGERY ??? BACK SURGERY 04/2020 [facility] ??? CREATION AV FISTULA ??? ESOPHAGOGASTRODUODENOSCOPY N/A [...] Left fracture leg with hardware placement ??? TIPS PROCEDURE 10/2016 ??? TIPS Revision 04/2017 ??? TYMPANOSTOMY TUBE PLACEMENT 07/2020 Social History Social History Tobacco Use ??? Smoking status: Never Smoker ??? Smokeless tobacco: Never Used Substance Use Topics ??? Alcohol use: No Family History Family History Problem Relation Age of Onset ??? Diabetes Sister ??? Anesthesia problems Neg Hx Allergy: Allergies Allergen Reactions ??? Tacrolimus Other (See Comments) Anxious feeling and muscle jerking. TOLERATED ENVARSUS BETTER THAN PROGRAF. ??? Codeine Sulfate Hyper ??? Codeine Other (See Comments) Becomes hyper Outpatient Medications Medications Prior to Admission Medication Sig Dispense Refill Last Dose ??? ALPRAZolam (XANAX) 0.5 MG tablet Take 0.5 mg by mouth if needed for Sleep. Past Week at Unknowntime ??? aspirin 81 MG chewable tablet Chew 1 tablet (81 mg total) by mouth daily with breakfast. 30 tablet 5 03/16/2022 at Unknown time ??? blood sugar diagnostic Strp Use to test blood sugar up to 4 times a day. Diagnosis for use: E 9.65. For use with One Touch Verio meters. 150 strip 5 03/16/2022 at Unknown time ??? blood-glucose meter (ONETOUCH VERIO SYSTEM) [facility] Use as instructed. 1 each 0 03/16/2022 at Unknown time ??? calcium acetate,phosphat bind, (PHOSLO) 667 mg capsule Take 667 mg by mouth 3 times a day with meals. 03/16/2022 at Unknown time ??? carBAMazepine (TEGRETOL) 200 mg tablet Take 200 mg by mouth 2 times a day. 03/16/2022 at Unknown time ??? cinacalcet (SENSIPAR) 60 MG tablet Take 60 mg by mouth daily with breakfast. 03/16/2022 at Unknown time ??? cycloSPORINE modified (CYCLOSPORINE MODIFIED) 25 MG capsule Take 4 capsules (100 mg total) by mouth 2 times a day. 720 capsule 1 03/16/2022 at Unknown time ??? doxazosin (CARDURA) 8 MG tablet Take 8 mg by mouth at bedtime. 03/16/2022 at Unknown time ??? entecavir (BARACLUDE) 0.5 MG tablet Take 1 tablet (0.5 mg total) by mouth every 7 days. 4 tablet 5 Past Week at Unknown time ??? ergocalciferol (ERGOCALCIFEROL) 1,250 mcg (50,000 unit) capsule Take 50,000 Units by mouth every Monday, , and Monday. 03/16/2022 at Unknown time ??? fenofibrate micronized (LOFIBRA) 134 MG capsule Take 134 mg by mouth every morning before breakfast. 03/16/2022 at Unknown time ??? ferrous sulfate 325 (65 FE) MG tablet Take 1 tablet (325 mg total) by mouth daily with breakfast. 30 tablet 0 03/16/2022 at Unknown time ??? folic acid (FOLVITE) 1 MG tablet Take 1 tablet (1 mg total) by mouth daily. 30 tablet 0 03/16/2022 at Unknown time ??? hydrALAZINE (APRESOLINE) 100 MG tablet Take 1 tablet (100 mg total) by mouth every 8 hours. 120tablet 0 03/16/2022 at Unknown time ??? insulin aspart U-100 (NOVOLOG) 100 unit/mL injection Administers per sliding scale 3 times daily with meals 03/16/2022 at Unknown time ??? lancets (ONETOUCH DELICA LANCETS) 33 gauge Misc Use 1 strip as directed 4 times daily before meals and at bedtime. 150 each 5 03/16/2022 at Unknown time ??? lisinopriL (PRINIVIL) 40 MG tablet Take 1 tablet by mouth daily. ??? methocarbamoL (ROBAXIN) 500 MG tablet Take 500 mg by mouth 4 times daily before meals and at bedtime. 03/15/2022 at Unknown time ??? metoprolol succinate (TOPROL-XL) 100 MG 24 hr tablet Take 100 mg by mouth at bedtime. 03/15/2022 at Unknown time ??? montelukast (SINGULAIR) 10 mg tablet Take 10 mg by mouth daily. 03/15/2022 at Unknown time ??? mycophenolate (CELLCEPT) 250 mg capsule Take 1 capsule (250 mg total) by mouth 2 times a day. 180 capsule 1 03/16/2022 at Unknown time ??? NIFEdipine (PROCARDIA-XL) 90 MG (OSM) 24 hr tablet Take 90 mg by mouth 2 times a day. 03/16/2022 at Unknown time ??? omega-3 fatty acids-fish oil 300-1,000 mg capsule Take 2 capsules by mouth 2 times a day with meals. 03/16/2022 at Unknown time ??? ondansetron (ZOFRAN-ODT) 4 MG disintegrating tablet Take 4 mg by mouth every 8 hours as needed. 03/16/2022 at Unknown time ??? pantoprazole (PROTONIX) 40 MG tablet Take 1 tablet (40 mg total) by mouth daily. (Patient taking differently: Take 40 mg by mouth in the morning and at bedtime.) 30 tablet 0 03/16/2022 at Unknown time ??? pen needle, diabetic 32 gauge x 32 Ndle Use as directed to inject insulin 4 times daily. 150each 5 03/15/2022 at Unknown time ??? polyethylene glycol (MIRALAX) 17 gram packet Take 17 g by mouth daily as needed (mild constipation (no BM for 24 hrs)). 14 packet 0 Past Week at Unknown time ??? sevelamer carbonate (RENVELA) 800 mg tablet Take 1,600 mg by mouth 3 times a day with meals. 03/16/2022 at Unknown time ??? testosterone cypionate (DEPOTESTOTERONE CYPIONATE) 200 mg/mL injection Inject into the muscle. Past Month at Unknown time ??? VASCEPA 1 gram Cap TAKE 2 Capsule by mouth twice daily 03/15/2022 at Unknown time ??? cholecalciferol, vitamin D3, 1,250 mcg (50,000 unit) capsule take 1 Capsule by mouth 3 times weekly ??? gabapentin (NEURONTIN) 800 MG tablet Take 800 mg by mouth 2 times a day. ??? hydrOXYzine HCL (ATARAX) 25 MG tablet ??? lidocaine (LIDODERM) 5 % APPLY 1 Film on skin daily ??? proMETHazine (PHENERGAN) 12.5 MG tablet Take by mouth. Unknown at Unknown time Inpatient Medications Scheduled Meds: ??? calcium acetate(phosphat bind) 667 mg Oral TID WC ??? cinacalcet 60 mg Oral Daily with breakfast ??? cycloSPORINE modified 100 mg Oral BID ??? fenofibrate 160 mg Oral Daily 0900 ??? folic acid 1 mg Oral Daily 0900 ??? gabapentin 800 mg Oral BID ??? heparin 5,000 Units Subcutaneous 3 times per day ??? insulin regular 0-5 Units Subcutaneous Q6H Scheduled ? ? methocarbamoL 500 mg Oral 4x Daily AC & HS ??? metoprolol tartrate 25 mg Oral BID ??? montelukast 10 mg Oral Daily 0900 ??? mycophenolate 250 mg Oral BID ??? NIFEdipine 90 mg Oral BID ??? pantoprazole (PROTONIX) IV 40 mg Intravenous BID6 ??? sevelamer carbonate 1,600 mg Oral TID WC ??? sodium chloride 10 mL Intravenous QS ??? terazosin 10 mg Oral Nightly (2100) Continuous Infusions: PRN Meds:.acetaminophen, carBAMazepine, dextrose 10% in water OR dextrose 10% in water, glucose, peppermint oiL Review of Systems Constitutional: denies fevers, chills, fatigue Eyes: denies blurry vision ENT: denies sinus congestion, rhinorrhea, sore throat CV: denies CP, palpitations, LE swelling Pulm: (+) SOB, denies cough, wheezing Abdomen: denies pain, nausea, denies vomiting, loose stool, constipation, (+) bloating MSK: denies joint pain, myalgias : denies increased urinary frequency, denies dysuria, hematuria Skin: denies wounds, lesions, rashes Psych: denies depression, denies anxiety Objective Temp: [97.2 ??F (36.2 ??C)-98.6 ??F (37 ??C)] 98 ??F (36.7 ??C) Heart Rate: [70-87] 82 Resp: [16-18] 17 BP: (138-184)/(66-110) 184/93 Intake/Output Summary (Last 24 hours) at 03/17/20222058 Last data filed at 03/17/2022 1400 Gross per 24 hour Intake 480 ml Output 0 ml Net 480 ml I/O last 3 completed shifts: In: 480 [P.O.:480] Out: 0 Wt Readings from Last 5 Encounters: 12/22/21 (!) 299 lb 1.6 oz (135.7 kg) 09/21/21 (!) 274 lb (124.3 kg) 08/26/21 (!) 263 lb 7.2 oz (119.5 kg) 07/15/21 (!) 266 lb 12.8 oz (121 kg) 06/24/21 (!) 263 lb (119.3 kg) Date 03/16/22 1500 - 03/17/22 0659 03/17/22 0700 - 03/18/22 0659 Shift [id number] 8744-3973 24 Hour Total [phone] 3655-5959 5384-5578 24 Hour Total INTAKE P.O. 120 120 360 360 P.O. 120 120 360 360 Shift Total 120 120 360 360 OUTPUT Urine 0 0 0 0 Urine 0 0 0 0 Urine Occurrence 0 x 0 x 0 x 0 x Emesis/NG output 0 0 0 0 Emesis 0 0 0 0 Emesis Occurrence 0 x 0 x 0 x 0 x Stool 0 0 Stool Occurrence 0 x 0 x 1 x 1 x Stool 0 0 Shift Total 0 0 0 0 Weight (kg) Physical Exam General: Well-nourished, well-appearing in NAD, severely obese Eyes: No scleral icterus, PERRLA, EOM intact ENT: Moist mucosal membranes, no pharyngeal erythema Neck: No LAD, no palpable thyromegaly, JVP not found Cardiovascular: RRR, Normal S1 and S2 w/ systolic murmur worse with inspiration, gallops and rubs. No lower extremity edema. Subtle parasternal heave Pulmonary: CTA without crackles or wheezing Abdomen: Normal bowel sounds, no TTP, no palpable organomegaly, no fluid wave, large pannus with some pitting at back Skin: Warm, dry, without jaundice. No rashes noted. Neuro: A&O x3, no focal deficits noted Psych: no anxiety, no depression Labs: Lab 03/17/22 0957 03/16/22 2334 WBC 2.7* 3.5* HEMOGLOBIN 8.7* 8.6* HEMATOCRIT 26.5* 26.2* PLATELETS 149 172 MEAN CORPUSCULAR VOLUME 102.5* 102.4* INR -- 1.2* Lab 03/16/22 2334 SODIUM 140 POTASSIUM 4.1 CHLORIDE 97* CO2 29 BUN 48* CREATININE 7.83* GLUCOSE 111* CALCIUM 9.1 PHOSPHORUS 4.9* MAGNESIUM 1.8 Cardiac Evaluation EKG: NSR, left posterior hemiblock, prolonged QT Last Echocardiogram Results for orders placed during the hospital encounter of 03/16/22 Echo 2D Complete (TTE) Narrative * [facility]* [address] [place] [address] Transthoracic Echocardiography Patient: Leoncio Rollins MR #: [id number] Account: Study Date: 03/17/2022 Gender: M Age: 47 : 1975 Room: COUNTS INCLUDE 234 BEDS AT THE [facility] FELLOW Dontae Hawkins MD PERFORMING Vinod Stokes MD READING Dontae Hawkins MD PANAMA [employer] BLOCKER Ashish Sheldon ORDERING Mandi Mora REFERRING Mandi Mora ATTENDING Kelsey Carcamo ADMITTING Kelsey Carcamo Procedure:ECHO 2D COMPLETE (TTE) Order: Indications: Heart Failure Systolic (I50.20). Study data: Height: 69in. 175.3cm. Weight: 298.3lb. 135.6kg. Comparison was made to the study of 06/01/2020. Study status: Routine. Procedure: Transthoracic echocardiography. Image quality was good. Scanning was performed from the parasternal, apical, and subcostal acoustic windows. Transthoracic echocardiography. M-mode, complete 2D, complete spectral Doppler, and color Doppler. Birthdate: Patient birthdate: 1975. Age: Patient is 47yr old. Sex: gender: male. Body mass index: BMI: 44.1kg/m^2. Body surface area: BSA: 2.64m^2. Blood pressure: 141/80 Patient status: Inpatient. Study date: Study date: 03/17/2022. Study time: 01:17 PM. Location: Bedside. Study Conclusions - Left ventricle: The cavity size is normal. Wall thickness was increased in a pattern of moderate LVH. Systolic function was mildly reduced. The estimated ejection fraction was in the range of 45% to 50%. Features are consistent with a pseudonormal left ventricular filling pattern, with concomitant abnormal relaxation and increased filling pressure (grade 2 diastolic dysfunction). - Regional wall motion abnormality: Hypokinesis of the basal-mid anteroseptal myocardium. - Aortic valve: Focal calcification involving the left coronary cusp. Left coronary cusp mobility was severely restricted. - Mitral valve: Moderately calcified annulus. There is a mobile echodensity on the posterior aspect of the mitral annulus which represents a small mobile calcification versus vegetation. - Right ventricle: The cavity size is severely dilated. Wall thickness is normal. Systolic function was moderately reduced by visual assessment. Tricuspid annular systolic velocity: 8cm/s. - Pulmonary arteries: The peak pressure during systole by Doppler is 61mm Hg. - Inferior vena cava: The vessel was dilated. The respirophasic diameter changes were blunted (< 50%), consistent with elevated central venous pressure. Impressions: Compared to prior there is likely a mild interval decrease in the LV ejection fraction. The RV is better visualized on the current study and is dilated with moderately depressed function. Cardiac Anatomy Left ventricle: - The cavity size is normal. Wall thickness was increased in a pattern of moderate LVH. Systolic function was mildly reduced. The estimated ejection fraction was in the range of 45% to 50%. Regional wall motion abnormalities: - Hypokinesis of the basal-mid anteroseptal myocardium. - Features are consistent with a pseudonormal left ventricular filling pattern, with concomitant abnormal relaxation and increased filling pressure (grade 2 diastolic dysfunction). Aorta: Aortic root: - The aortic root is normal in size. Aortic valve: - Trileaflet; moderately thickened leaflets. Focal calcification involving the left coronary cusp. Left coronary cusp mobility was severely restricted. Doppler: [...] There is no evidence for stenosis. Trivial regurgitation. Left atrium: - The atrium is mildly dilated. Systemic veins: Inferior vena cava: The vessel was dilated. The respirophasic diameter changes were blunted (< 50%), consistent with elevated central venous pressure. Right ventricle: - The cavity size is severely dilated. Wall thickness is normal. Systolic function was moderately reduced by visual assessment. Tricuspid annular systolic velocity: 8cm/s. Pulmonic valve: Doppler: - Transvalvular velocity is within the normal range. There is no evidence for stenosis. Trivial regurgitation. Tricuspid valve: - Structurally normal valve. Doppler: - Transvalvular velocity is within the normal range. Mild-moderate regurgitation directed eccentrically. Right atrium: - The atrium is normal in size. Pericardium: - There is no pericardial effusion. Systemic veins: Inferior vena cava: - The vessel was dilated. The respirophasic diameter changes were blunted (< 50%), consistent with elevated central venous pressure. Measurements Left ventricle Value 06/01/2020 Ref GINA, LAX (N) 5.7 cm 4.2 - 5.8 ESD, LAX (H) 4.5 cm 2.5 - 4.0 GINA/bsa, LAX (N) 2.2 cm/m^2 2.2 - 3.0 ESD/bsa, LAX (N) 1.7 cm/m^2 1.3 - 2.1 FS, LAX (L) 21 % 25 - 43 FS, LAX chord (L) 21 % 25 - 43 ESD (H) 4.5 cm 2.5 - 4.0 ESD/bsa (N) 1.7 cm/m^2 1.3 - 2.1 PW, ED (H) 1.5 cm 0.6 - 1.0 IVS/PW, ED 1 EDV (H) 160 ml 62 - 150 ESV (H) 92 ml 21 - 61 EF (L) 42 % 52 - 72 SV 113 ml EDV/bsa (N) 61 ml/m^2 34 - 74 ESV/bsa (H) 35 ml/m^2 SV/bsa 43 ml/m^2 SV, 1-p A2C 68 ml SV/bsa, 1-p A2C 25.6 ml/m^2 SV, 1-p A4C 94 ml 137 SV/bsa, 1-p A4C 36 ml/m^2 59 E', lat denilson, TDI (N) 10.9 cm/sec 17.9 >=10.0 E/e', lat denilson, TDI 11 8 A', lat denilson, TDI 11.9 cm/sec E'/a', lat denilson, TDI 0.92 S', lat denilson, TDI 9.6 cm/sec 10.9 E', med denilson, TDI (N) 7.1 cm/sec 12.0 >=7.0 E/e', med denilson, TDI 17 12 A', med denilson, TDI 6.4 cm/sec E'/a', med denilson, TDI 1.1 S', med denilson, TDI 7.0 cm/sec 10.6 E', avg, TDI 9.0 cm/sec 15.0 E/e', avg, TDI (N) 13 10 <=14 LVET 290 ms LVOT Value 06/01/2020 Ref Diam, S 2.3 cm Area 4.2 cm^2 Peak cesilia, S 1.29 m/sec 1.38 Mean cesilia, S 0.81 m/sec Peak grad, S 7 mm Hg 8 SV 113 ml SV/bsa 43 ml/m^2 Ventricular septum Value 06/01/2020 Ref IVS, ED (H) 1.5 cm 0.6 - 1.0 Right ventricle Value 06/01/2020 Ref GINA, LAX 2.9 cm 5.8 TAPSE, MM (N) 2.0 cm 2.1 1.7 - 3.1 S' lateral (N) 7.9 cm/sec 13.2 6.0 - 13.4 RVOT Value 06/01/2020 Ref Peak v, S 0.74 m/sec 1.18 Left atrium Value 06/01/2020 Ref AP dim, ES (N) 3.2 cm 4.4 3.0 - 4.0 AP dim index (L) 1.2 cm/m^2 1.9 1.5 - 2.3 Area ES, A4C (H) 26 cm^2 23 <=20 Area ES, A2C 27 cm^2 25 SI dim, A2C 6.4 cm 5.4 Vol, ES, 1-p A4C (H) 82 ml 68 18 - 58 Vol/bsa, ES, 1-p A4C (N) 31 ml/m^2 29 12 - 37 Vol, ES, 1-p A2C (H) 92 ml 87 18 - 58 Vol/bsa, ES, 1-p A2C (N) 35 ml/m^2 37 11 - 43 Vol, ES, 2-p 87 ml 80 Vol/bsa, ES, 2-p (N) 33 ml/m^2 34 16 - 34 Right atrium Value 06/01/2020 Ref Area, ES, A4C (H) 22 cm^2 22 10 - 18 Aortic valve Value 06/01/2020 Ref Peak v, S 1.7 m/sec 2.2 Mean v, S 1.22 m/sec 1.47 Mean grad, S 7 mm Hg 11 Peak grad, S 11 mm Hg 20 LVOT/AV, VTI ratio 0.78 LEO, VTI 3.2 cm^2 LEO/bsa, VTI 1.22 cm^2/m^2 LVOT/AV, Vpeak ratio 0.78 0.62 LEO, Vmax 3.2 cm^2 LEO/bsa, Vmax 1.22 cm^2/m^2 LVOT/AV, Vmean ratio 0.66 LEO, Vmean 2.7 cm^2 LOE/bsa, Vmean 1.04 cm^2/m^2 Mitral valve Value 06/01/2020 Ref Peak E 1.2 m/sec 1.49 Peak A 0.97 m/sec Decel time 261 ms 204 Peak grad, D 6 mm Hg 9 Peak E/A ratio 1.2 Pulmonic valve Value 06/01/2020 Ref Peak v, S 1.2 m/sec 1.6 Tricuspid valve Value 06/01/2020 Ref TR peak v (N) 2.8 m/sec <=2.8 Peak RV-RA grad, S 46 mm Hg Max TR cesilia 2.84 m/sec Aortic root Value 06/01/2020 Ref Root diam (N) 3.2 cm 2.9 <4.6 Ascending aorta Value 06/01/2020 Ref AAo AP diam, S 2.9 cm AAo AP diam/bsa, S 1.1 cm/m^2 Pulmonary artery Value 06/01/2020 Ref Pressure, S 61 mm Hg Legend: (L) and (H) krunal values outside specified reference range. (N) moran values inside specified reference range. I personally reviewed the images and agree with the interpretation of the resident. Reviewed and confirmed by Vinod Stokes MD [id number] Last Stress test: Results for orders placed during the hospital encounter of 05/07/18 NM Myocardial perf stress and rest SPECT Narrative FINAL INTERPRETATION Abnormal study with apical [...] an intravenous injection of 30.9 millicuries of Tc-99m tetrofosmin (stress heart rate 109, blood pressure 149/91). Cardiac SPECT imaging was performed 45 minutes following injection given at 1515. The patient experienced atypical angina 5/10, shortness of breath, fatigue, and headache. Symptoms relieved withoral caffeine. ECG DATA: Rest ECG: Sinus rhythm/Normal conduction/No arrhythmias/Nonspecific ST-T abnormality Stress ECG: Sinus tachycardia/No arrhythmias/Nonspecific ST changes, less than 0.[address] segment depression ECG findings (only): Nondiagnostic ECG due to inadequate heart rate. Please refer to the FINAL SCAN INTERPRETATION at the top of this report. The note was transcribed by Rahul Bales for Dr Aguila Cuellar Interpretation date: 05/07/2018 Transcribed date: 05/07/2018 Report Verified by: AGUILA CUELLAR M.D. at 05/07/2018 4:57 PM EDT Last Cardiac Catheterization Results for orders placed during the hospital encounter of 06/05/18 Cardiac Cath Narrative * *[facility]* [employer] [address] [place], [place] [address] CATHETERIZATION LAB STUDY Patient: Eh, Age: 43 Study 06/05/2018 Leoncio Date: Patient [id number] Gender: M Study 01:25 PM ID: Time: : 1975 HT/WT: 170cm / 127.7kg Performing Physician: Jay Talley MD Ordering Physician: Marcelino Haynes Jr Referring Physician: Jack Ordoñez Fellow: Padma Montgomery MD Procedures performed: - Right heart catheterization. - Left heart catheterization. - Left coronary angiography. - Right coronary angiography. IMPRESSIONS: There is no evidence of coronary artery disease. Mild pulmonary hypertension with borderline transpulmonary gradient and mildy elevated PCWP and LVEDP RECOMMENDATIONS: Follow up with outpatient cardiology clinic for medical optimization Screening for JC and other causes for pulmonary hypertension Lifestyle modification including weight loss. INDICATIONS: Chest Pain. HISTORY: S/P Liver transplant 10-08-17, Increased troponin. Risk factors: Hypertension. Diabetes mellitus. Cirrhosis, SAL. Allergie s: See patient chart for complete allergy information allergy. LABS, PRIOR TESTS, PROCEDURES, and SURGERY: Serum creatinine (current admission) of 1.8 mg/dl. Prothrombin time (PT) of 14.2 sec. Hematocrit of 27 %. Blood urea nitrogen of 33 mg/ dl. Hemoglobin (pre-procedure) of 9.4 g/dl. International normalize d ratio (INR) of 1.1. BunToCreatinine of 18.3. Stress nuclear imagi ng. Abnormal. The study demonstrated evidence suggesting coronary artery disease. PROCEDURE IN DETAIL: Study status: Cardiac cath: elective. Consent: The risks, benefits, and alternatives to the procedure and sedation were explained to the patient and informed consent was obtai sourav. Fluoroscopy time: Fluoroscopy time: 10.3min. Fluoroscopy dose : Fluoroscopy dose: 72.8cGy. Location: [facility]. PROCEDURE: 1. Initial setup. The patient was brought to the laboratory in the fasting state. Surface ECG leads, blood pressure measurements, and pulse oximetric signals were monitored. 2. Skin preparation. The planned puncture sites were prepped and draped in the usual sterile manner. 3. Right internal jugular vein access. A 4f Agari mini access kit sheath was advanced into the vessel. 4. Sheath exchange. The sheath was exchanged for a [id number] pinnacle sheath. 5. Right heart catheterization. A 6f swan-viviana td catheter was advanced via the access site into the right atrium, right ventricle, pulmonary artery and wedge position under fluoroscopic guidance. 6. Right radial artery access. A [id number] glidesheath - slender - .021 sheath was advanced into the vessel. 7. Left heart catheterization. A 5f pigtail 145 catheter was advanced across the aortic valve to the left ventricle under fluoroscopic guidance. 8. Selective left coronary angiography. A [id number] tig 4.0 catheter was advanced into the left coronary vessel ostium under fluoroscopic guidance. Contrast was injected. Images were obtained in multiple projections. 9. Selective right coronary angiography. A [id number] tig 4.0 catheter was advanced into the right coronary vessel ostium under fluoroscopic guidance. Contrast was injected. Images were obtained in multiple projections. 10. Activated clotting time measurement. 11. Right radial artery hemostasis. The sheath was removed. Mechanical compression was applied. STUDY COMPLETION: The patient tolerated the procedure well and was discharged from the lab. There were no complications. Administered m edications: Verapamil (Isoptin, Calan, Covera), 2.5mg. Heparin, 4, 000units. Fentanyl, for a total dose of 100mcg. Midazolam, for a to poli dose of 2.5mg. Contrast: Omnipaque 350 30ml (total dose). Omn ipaque 350 10ml (wasted). CORONARY ARTERIES: 1. The coronary circulation is right dominant. 2. The left main bifurcates normally into the LAD and circumflex. Left main: Normal. LAD: Normal. Left circumflex: Normal. Medium-sized. Right coronary: Normal. Large. HEMODYNAMICS: + + + !Stage description !Condition1:Condition 1 - Abelino! + + + !Venous saturation !RA: 61%, PA: 61% ! + + + !Arterial saturation !85% ! + + + !O2 uptake, hemoglobin !Hgb: 8.27g/dl ! + + + !Systemic cardiac output (Qs) !10.8L/min, 4.63L/(min-m^2) ! + + + !HR, R-R, stroke volume !68bpm, 159ml ! + + + !RA pressure a/v (m) ! (13) ! + + + !RV pressure s/d !50/12 ! + + + !PA pressure s/d (m) !50/15 (29) ! + + + !PA wedge a/v (m) !18/18 (18) ! + + + !LV pressure s/ed !130/16 ! + + + !Arterial pressure s/d (m) !147/74 (106) ! + + + !Systemic vascular resistance !627dyn-sec/cm5 ! + + + !Total systemic resistance !723dyn-sec/cm5 ! + + + !Pulmonary vascular resistance!1Wood U ! + + + Cardiac Output + + +-----+ + !Stage description !Type !Value!Units ! + + +-----+ + !Condition1:Condition 1 - ![id number]!292.5!ml/min ! !Abelino ! ! ! ! + + +-----+ + !Condition1:Condition 1 - !StrokeWorkIndex !74.1 !(gm x ! !Abelino ! ! !M)/M^2 ! + + +-----+ + !Condition1:Condition 1 - !StrokeVolumeIndex !68.1 !ml/M^2 ! !Abelino ! ! ! ! + + +-----+ + Pressures + + +-----+-----+ !Stage description !Type !Value!Units! + + +-----+-----+ !Condition1:Condition 1!PeakdPdt - RV - 1 !601 !-----! + + +-----+-----+ !Condition1:Condition 1!VDiastolic - RV - 1!12 !mmHg ! + + +-----+-----+ !Condition1:Condition 1!PeakdPdt - LV - 5 !4053 !-----! + + +-----+-----+ !Condition1:Condition 1!VDiastolic - LV - 5!16 !mmHg ! + + +-----+-----+ !Condition1:Condition 1!PeakdPdt - LV - 6 !2348 !-----! + + +-----+-----+ !Condition1:Condition 1!VDiastolic - LV - 6!16 !mmHg ! + + +-----+-----+ !Condition1:Condition 1!PeakdPdt - LV - 7 !2312 !-----! + + +-----+-----+ !Condition1:Condition 1!VDiastolic - LV - 7!4 !mmHg ! + + +-----+-----+ !Condition1:Condition 1!PeakdPdt - LV - 9 !1312 !-----! + + +-----+-----+ !Condition1:Condition 1!VDiastolic - LV - 9!71 !mmHg ! + + +-----+-----+ Resistances + + +------+-----+ !Stage description !Type !Value !Units! + + +------+-----+ !Condition1:Condition!PulmonaryVascularResistanceWoods !1 !norris! !1 - Abelino ! ! ! ! + + +------+-----+ !Condition1:Condition!SystemicVascularResistanceWoods !7.8 !norris! !1 - Abelino ! ! ! ! + + +------+-----+ !Condition1:Condition!TotalSystemicResistanceWoods !723.2 !norris! !1 - Abelino ! ! ! ! + + +------+-----+ !Condition1:Condition!PulmonaryVascularResistanceI !190 !(dyne! !1 - Abelino ! ! !x ! ! ! ! !sec)/! ! ! ! !cm^5 ! + + +------+-----+ !Condition1:Condition!PulmonaryVascularResistanceIWoods!2.4 !norris! !1 - Abelino ! ! ! ! + + +------+-----+ !Condition1:Condition!SystemicVascularResistanceI !1467.8!(dyne! !1 - Abelino ! ! !x ! ! ! ! !sec)/! ! ! ! !cm^5 ! + + +------+-----+ !Condition1:Condition!SystemicVascularResistanceIWoods !18.3 !norris! !1 - Abelino ! ! ! ! + + +------+-----+ !Condition1:Condition!TotalSystemicResistanceI !1692.3!(dyne! !1 - Abelino ! ! !x ! ! ! ! !sec)/! ! ! ! !cm^5 ! + + +------+-----+ !Condition1:Condition!TotalSystemicResistanceIWoods !21.2 !norris! !1 - Abelino ! ! ! ! + + +------+-----+ ATTESTATION: Dr. Talley was present for the entire procedure. Dr. Montgomery was the initial author of this report. Prepared and electronically signed by Jay Talley MD [id number] Last Cardiac MRI No results found for this or any previous visit. Emergency Contact Information Emergency Contact: Extended Emergency Contact Information Primary Emergency Contact: Kym Rollins Address: [address] [place] [address] Mobile Relation: Spouse Secondary Emergency Contact: EhKimberly [facility] Relation: Mother Cosigned by Wilmer Hernandez MD at 03/17/2022 10:39 PM EDT Associated attestation - Wilmer Hernandez MD - 03/17/2022 10:39 PM EDT I have personally obtained the history, performed the physical examination, reviewed the pertinent laboratory and imaging data, discussed the case with the house staff on 03/17/2022 and agree with the assessment and plan. Wilmer Hernandez MD * Fortino Palomino DO - 03/17/2022 1:45 PM EDTAssociated Order(s): IP CONSULT TO NEPHROLOGY Transplant Nephrology Consult H&P 03/17/2022 6:49 PM Patient: Leoncio Rollins Jr. 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 - HDS, electrolytes unremarkable. - no immediate need for HD. - Resume MWF HD. Assessment Renal Function: Cr: 7.83 Bun: 48 on 03/16/2022 Reportedly nearly completed his last HD session on 03/16/2022, with 40 minutes left. On HD MWF. Immunosuppression: - per hepatology - on cyclosporine and MMF Hemodynamics/CVS: BP: 148/75 Goal <130/80 BP elevated acutely. Electrolytes: Na: 140 K: 4.1 Cl: 97 Ma.8 Ca: 9.1 Phos: 4.9 No current issues. Acid Base Status: Anion Gap: 14 Bicarb: 29 No current issues. Volume Status: Euvolemic No current issues. Mineral Bone Disease: Ca: 9.1 PO4: 4.9 Alb: 4.4; 4.4 PTH: 870.0 on 09/21/2021 Vit D: 15.8 on 01/14/2019 No current issues. Anemia of GIB: Hgb 8.7 Hct 26.5 Plt 149 Iron 29 on 10/31/2021 Ferritin 826.6 on 10/31/2021 TIBC: 247 on 10/31/2021 Haptoglobin: 226 on 07/20/2019 LDH: 340 on 07/20/2019 Anemia 2/2 GIB. Hgb low, monitor for ongoing hemorrhaging. General Recommendations: - Monitor urine output closely, [...] All recommendations are preliminary until attending attestation. Fortino Palomino DO Nephrology Fellow, PGY-4 Pager: [phone] Reason for Consult Chief complaint: blood in stool History of Present Illness Leoncio Rollins Jr. is a pleasant 47 y.o. 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 Patient presented on 03/16/2022 with GIB early in the am before his dialysis session. He reports he left his HD session 40 minutes before it completed. Later at home, he had a large BM without blood in it. He has had this happen before that was found to be d/t PUD. He otherwise receives HD routinely without difficulty. He has a LUE AVF, which he reports has low pressure and has been looking to have it evaluated by his surgeon outpatient. He reports his AVF still functions but may require evaluation in the near future. He reports feeling better after Tx in ED and deniesany f, c, headache, dizziness, chest pain, dyspnea, abd pain, n/v/d, malaise, or weakness. Past medical, family, and social histories have been reviewed from electronic medical records and confirmed with the patient. Updates have been made as necessary. Review of Systems (Focused) Significant as listed in HPI otherwise GEN: Denies recent fever, chills, night sweats, or recent weight change HEENT: Denies changes in vision, sore throat, or rhinorrhea CV: Denies chest pain, palpitations, orthopnea, syncope/pre-syncope Pulmonary: Denies shortness of breath, cough, purulent sputum or hemoptysis GI: Denies nausea, vomiting, diarrhea, constipation or abdominal pain. : Denies bowel or bladder incontinence, dysuria, hematuria, urinary hesitancy, or urgency MSK: Denies muscle or joint pain Neuro: Denies headaches, weakness, sensory changes, or tremors Skin: Denies rashes, wounds or itching Psych: Denies depression/anxiety symptoms Past Medical History Past Medical History: Diagnosis [...] ??? ABDOMINAL SURGERY ??? BACK SURGERY 04/2020 [facility] ??? CREATION AV FISTULA ??? ESOPHAGOGASTRODUODENOSCOPY N/A [...] Left fracture leg with hardware placement ??? TIPS PROCEDURE 10/2016 ??? TIPS Revision 04/2017 ??? TYMPANOSTOMY TUBE PLACEMENT 07/2020 Family History Family History Problem Relation Age of Onset ??? Diabetes Sister ??? Anesthesia problems Neg Hx Social History Social History Tobacco Use ??? Smoking status: Never Smoker ??? Smokeless tobacco: Never Used Substance Use Topics ??? Alcohol use: No Medications Inpatient Meds: Medications Prior to Admission Medication Sig Dispense Refill Last Dose ??? ALPRAZolam (XANAX) 0.5 MG tablet Take 0.5 mg by mouth if needed for Sleep. Past Week at Unknowntime ??? aspirin 81 MG chewable tablet Chew 1 tablet (81 mg total) by mouth daily with breakfast. 30 tablet 5 03/16/2022 at Unknown time ??? blood sugar diagnostic Strp Use to test blood sugar up to 4 times a day. Diagnosis for use: E 9.65. For use with One Touch Verio meters. 150 strip 5 03/16/2022 at Unknown time ??? blood-glucose meter ([employer] VERIO SYSTEM) [facility] [place] as instructed. 1 each 0 03/16/2022 at Unknown time ??? calcium acetate,phosphat bind, (PHOSLO) 667 mg capsule Take 667 mg by mouth 3 times a day with meals. 03/16/2022 at Unknown time ??? carBAMazepine (TEGRETOL) 200 mg tablet Take 200 mg by mouth 2 times a day. 03/16/2022 at Unknown time ??? cinacalcet (SENSIPAR) 60 MG tablet Take 60 mg by mouth daily with breakfast. 03/16/2022 at Unknown time ??? cycloSPORINE modified (CYCLOSPORINE MODIFIED) 25 MG capsule Take 4 capsules (100 mg total) by mouth 2 times a day. 720 capsule 1 03/16/2022 at Unknown time ??? doxazosin (CARDURA) 8 MG tablet Take 8 mg by mouth at bedtime. 03/16/2022 at Unknown time ??? entecavir (BARACLUDE) 0.5 MG tablet Take 1 tablet (0.5 mg total) by mouth every 7 days. 4 tablet 5 Past Week at Unknown time ??? ergocalciferol (ERGOCALCIFEROL) 1,250 mcg (50,000 unit) capsule Take 50,000 Units by mouth every Monday, , and Monday. 03/16/2022 at Unknown time ??? fenofibrate micronized (LOFIBRA) 134 MG capsule Take 134 mg by mouth every morning before breakfast. 03/16/2022 at Unknown time ??? ferrous sulfate 325 (65 FE) MG tablet Take 1 tablet (325 mg total) by mouth daily with breakfast. 30 tablet 0 03/16/2022 at Unknown time ??? folic acid (FOLVITE) 1 MG tablet Take 1 tablet (1 mg total) by mouth daily. 30 tablet 0 03/16/2022 at Unknown time ??? hydrALAZINE (APRESOLINE) 100 MG tablet Take 1 tablet (100 mg total) by mouth every 8 hours. 120tablet 0 03/16/2022 at Unknown time ??? insulin aspart U-100 (NOVOLOG) 100 unit/mL injection Administers per sliding scale 3 times daily with meals 03/16/2022 at Unknown time ??? lancets (ONETOUCH DELICA LANCETS) 33 gauge Misc Use 1 strip as directed 4 times daily before meals and at bedtime. 150 each 5 03/16/2022 at Unknown time ??? lisinopriL (PRINIVIL) 40 MG tablet Take 1 tablet by mouth daily. ??? methocarbamoL (ROBAXIN) 500 MG tablet Take 500 mg by mouth 4 times daily before meals and at bedtime. 03/15/2022 at Unknown time ??? metoprolol succinate (TOPROL-XL) 100 MG 24 hr tablet Take 100 mg by mouth at bedtime. 03/15/2022 at Unknown time ??? montelukast (SINGULAIR) 10 mg tablet Take 10 mg by mouth daily. 03/15/2022 at Unknown time ??? mycophenolate (CELLCEPT) 250 mg capsule Take 1 capsule (250 mg total) by mouth 2 times a day. 180 capsule 1 03/16/2022 at Unknown time ??? NIFEdipine (PROCARDIA-XL) 90 MG (OSM) 24 hr tablet Take 90 mg by mouth 2 times a day. 03/16/2022 at Unknown time ??? omega-3 fatty acids-fish oil 300-1,000 mg capsule Take 2 capsules by mouth 2 times a day with meals. 03/16/2022 at Unknown time ??? ondansetron (ZOFRAN-ODT) 4 MG disintegrating tablet Take 4 mg by mouth every 8 hours as needed. 03/16/2022 at Unknown time ??? pantoprazole (PROTONIX) 40 MG tablet Take 1 tablet (40 mg total) by mouth daily. (Patient taking differently: Take 40 mg by mouth in the morning and at bedtime.) 30 tablet 0 03/16/2022 at Unknown time ??? pen needle, diabetic 32 gauge x Ndle Use as directed to inject insulin 4 times daily. 150each 5 03/15/2022 at Unknown time ??? polyethylene glycol (MIRALAX) 17 gram packet Take 17 g by mouth daily as needed (mild constipation (no BM for 24 hrs)). 14 packet 0 Past Week at Unknown time ??? sevelamer carbonate (RENVELA) 800 mg tablet Take 1,600 mg by mouth 3 times a day with meals. 03/16/2022 at Unknown time ??? testosterone cypionate (DEPOTESTOTERONE CYPIONATE) 200 mg/mL injection Inject into the muscle. Past Month at Unknown time ??? VASCEPA 1 gram Cap TAKE 2 Capsule by mouth twice daily 03/15/2022 at Unknown time ??? cholecalciferol, vitamin D3, 1,250 mcg (50,000 unit) capsule take 1 Capsule by mouth 3 times weekly ??? gabapentin (NEURONTIN) 800 MG tablet Take 800 mg by mouth 2 times a day. ??? hydrOXYzine HCL (ATARAX) 25 MG tablet ??? lidocaine (LIDODERM) 5 % APPLY 1 Film on skin daily ??? proMETHazine (PHENERGAN) 12.5 MG tablet Take by mouth. Unknown at Unknown time Scheduled Meds: ??? calcium acetate(phosphat bind) 667 mg Oral TID WC ??? cinacalcet 60 mg Oral Daily with breakfast ??? cycloSPORINE modified 100 mg Oral BID ??? fenofibrate 160 mg Oral Daily 0900 ??? folic acid 1 mg Oral Daily 0900 ??? gabapentin 800 mg Oral BID ??? heparin 5,000 Units Subcutaneous 3 times per day ??? insulin regular 0-5 Units Subcutaneous Q6H Scheduled ? ? methocarbamoL 500 mg Oral 4x Daily AC & HS ??? metoprolol tartrate 25 mg Oral BID ??? montelukast 10 mg Oral Daily 0900 ??? mycophenolate 250 mg Oral BID ??? NIFEdipine 90 mg Oral BID ??? pantoprazole (PROTONIX) IV 40 mg Intravenous BID6 ??? polyethylene glycol 2,000 mL Oral Once ??? sevelamer carbonate 1,600 mg Oral TID WC ??? sodium chloride 10 mL Intravenous QS ??? terazosin 10 mg Oral Nightly (2099) Continuous Infusions: PRN medications: acetaminophen, carBAMazepine, dextrose 10% in water OR dextrose 10% in water, glucose, peppermint oiL Allergies: Allergies Allergen Reactions ??? Tacrolimus Other (See Comments) Anxious feeling and muscle jerking. TOLERATED ENVARSUS BETTER THAN PROGRAF. ??? Codeine Sulfate Hyper ??? Codeine Other (See Comments) Becomes hyper Vital Signs Temp: [97.2 ??F (36.2 ??C)-98.6 ??F (37 ??C)] 98.6 ??F (37 ??C) Heart Rate: [70-87] 70 Resp: [16-18] 16 BP: (138-181)/(66-110) 148/75 Patient Vitals for the past 4 hrs: BP Temp Temp src Pulse Resp SpO2 03/17/22 1512 148/75 98.6 ??F (37 ??C) Oral 70 16 93 % Wt Readings from Last 3 Encounters: 12/22/21 (!) 299 lb 1.6 oz (135.7 kg) 09/21/21 (!) 274 lb (124.3 kg) 08/26/21 (!) 263 lb 7.2 oz (119.5 kg) Admit Wt: Todays Wt: Estimated body mass index is 44.17 kg/m?? as calculated from the following: Height as of 12/22/21: 5' 9 (1.753 m). Weight as of 12/22/21: 299 lb 1.6 oz (135.7 kg). Date 03/16/221499 - 03/17/2265803/17/22 07 - 03/18/22 0659 Shift 5782-7637 9455-1704 24 Hour Total 4385-1031 6556-5934 6620-0155 24 Hour Total INTAKE P.O. 120 120 360 360 P.O. 120 120 360 360 Shift Total 120 120 360 360 OUTPUT Urine 0 0 0 0 Urine 0 0 0 0 Urine Occurrence 0 x 0 x 0 x 0 x Emesis/NG output 0 0 0 0 Emesis 0 0 0 0 Emesis Occurrence 0 x 0 x 0 x 0 x Stool 0 0 Stool Occurrence 0 x 0 x 1 x 1 x Stool 0 0 Shift Total 0 0 0 0 Weight (kg) Intake/Output Summary (Last 24 hours) at 03/17/2022 1849 Last data filed at 03/17/2022 1400 Gross per 24 hour Intake 480 ml Output 0 ml Net 480 ml I/O last 3 completed shifts: In: 120 [P.O.:120] Out: 0 RESPIRATORY Ventilator Setting: No data found. Fi02 Requirement: No data found. Last ABG: Lab Results Component Value Date PCO2 48 (H) 05/30/2020 [id number] 90.1 (L) 05/30/2020 Physical Exam General appearance: Awake and alert, oriented to time, place and person, pleasant, cooperative, no apparent distress. Head: Normocephalic, without obvious abnormality, atraumatic, Oropharynx: no oral ulcers or thrush, optimal dentition Eyes: PERRL, EOM intact, no pallor/icterus Ears: No discharge Neck: Supple, trachea midline, no JVD Lungs: Clear to auscultation bilaterally and no respiratory distress Heart: regular rate and rhythm,no murmurs, no rubs, no gallops. Abdomen: soft, non-tender non-distended, bowel sounds present. Extremities: 1+ BLE edema. Warm dry. No cyanosis, no ecchymosis. Neuro: following commands, moving all extremities, sensation intact to touch, normal speech, face symmetric Skin: Warm, No rashes/lesions noted Psych: good eye contact, normal affect MSK: All joints appearing normal, no effusion/tenderness noticed. Laboratory Data Recent Labs 03/16/22 2334 03/17/22 0957 WBC 3.5* 2.7* HGB 8.6* 8.7* HCT 26.2* 26.5* MCV 102.4* 102.5* PLT 172 149 Recent Labs 03/16/22 2334 NA 140 K 4.1 CL 97* CO2 29 BUN 48* CREATININE 7.83* GLUCOSE 111* CALCIUM 9.1 MG 1.8 PHOS 4.9* ANIONGAP 14 Recent Labs 03/16/22 2334 INR 1.2* PROTIME 15.7* FSBS Range: Recent Labs 03/17/22 0553 03/17/22 1300 03/17/22 1803 POCGMD 110* 103* 127* Recent Labs 03/16/22 2334 ALT 8 AST 12* ALKPHOS 74 BILITOT 0.6 Cardiac Labs: No results for input(s): CKTOTAL, CKMB, CKMBINDEX, TROPONINI, BNP, NTPROBNP in the last 72 hours. No results for input(s): CHOLTOT, TRIG, HDL, CHOLHDL, LDL in the last 72 hours. Invalid input(s): VLDCHOL Lab Results Component Value Date HGBA1C 5.8 (H) 03/17/2022 HGBA1C 6.0 (H) 09/21/2021 HGBA1C 6.5 (H) 07/15/2021 Nephro Labs: No results for input(s): COLORU, CLARITYU, PH, PROTEINUA, PHUR, LABSPEC, GLUCOSEU, BLOODU, LEUKOCYTESUR, NITRITE, BILIRUBINUR, UROBILINOGEN, RBCUA, WBCUA, BACTERIA, AMORPHOUS, CRYSTAL, CASTS in the last 72 hours. Invalid input(s): KEYTONESU No results for input(s): NAUR, KUR, CLUR in the last 72 hours. Invalid input(s): CO2UR, CRUR No results found for: MICROALBUR, [id number] Lab Results Component Value Date PTH 870.0 (H) 09/21/2021 CALCIUM 9.1 03/16/2022 PHOS 4.9 (H) 03/16/2022 Lab Results Component Value Date [id number] 15.8 (L) 01/14/2019 Anemia Labs: Lab Results Component Value Date IRON 29 (L) 10/31/2021 TIBC 247 (L) 10/31/2021 FERRITIN 826.6 (H) 10/31/2021 Lab Results Component Value Date [id number] 1,355 (H) 10/31/2021 Sepsis Marker Labs: No results for input(s): LACTATE in the last 72 hours. Lab Results Component Value Date FIBRINOGEN 454 (H) 07/20/2019 No results for input(s): TEGANGLE, TEGKTIME, LFVQYTSE24, TEGMAXAMPL, TEGRTIME, CBMZ in the last 72 hours. No results for input(s): ESR, CRP in the last 72 hours. Lab Results Component Value Date ESR 15 09/03/2020 ESR 21 (H) 07/15/2020 ESR 21 (H) 06/22/2020 ESR 25 (H) 06/15/2020 ESR 28 (H) 06/01/2020 CRP 14.3 (H) 09/03/2020 CRP 23.8 (H) 07/14/2020 CRP 94.2 (H) 06/22/2020 CRP 74.5 (H) 06/15/2020 CRP 47.0 (H) 06/08/2020 Infectious Labs Urine cx: Lab Results Component [...] found for: LABFUNG No results found for: PROTEINCSF, GLUCCSF, CFLCCOM, CULTCSF No results found for: HIV1X2 No results found for: [id number] No results found for: VDRLCSF Lab Results Component Value Date HEPAIGM Nonreactive 10/31/2021 HEPBCAB Reactive (A) 10/31/2021 No results found for: [id number] No results found for: [id number] In addition to the above an extensive [...] limited, but is grossly unremarkable. Other: None IMPRESSION: 1. Increased echogenicity of the kidneys compatible with nonspecific medical renal disease. 2. No hydronephrosis Report Verified by: Marcy Villagran MD at 10/22/2020 12:00 PM EST No results found for this or any previous visit. Radiology last 48 hours: Echo 2D Complete (TTE) Result Date: 03/17/2022 * [facility]* [address] [place] [id number] Transthoracic Echocardiography Patient: Leoncio Rollins MR #: [id number] Account: Study Date: 03/17/2022 Gender: M Age: 47 : 1975 Room: COUNTS INCLUDE 234 BEDS AT THE [facility] FELLOW Dontae Hawkins MD PERFORMING Vinod Stokes MD READING Dontae Hawkins MD PANAMA HAT BLOCKER Ashish Sheldon ORDERING Mandi Mora REFERRING Mandi Mora ATTENDING Kelsey Carcamo ADMITTING Kelsey Carcamo Procedure:ECHO 2D COMPLETE (TTE) Order: ---- Indications: Heart Failure Systolic(I50.20). Study data: Height: 69in. 175.3cm. Weight: 298.3lb. 135.6kg. Comparison was made to the study of 06/01/2020. Study status: Routine. Procedure: Transthoracic echocardiography. Image quality was good. Scanning was performedfrom the parasternal, apical, and subcostal acoustic windows. Transthoracic echocardiography. M-mode, complete 2D, complete spectral Doppler, and color Doppler. Birthdate: Patient birthdate: 1975. Age: Patient is 47yr old. Sex: gender: male. Body mass index: BMI: 44.1kg/m^2. Body surface area: BSA: 2.64m^2. Blood pressure: 141/80 Patient status: Inpatient. Study date: Study date: 03/17/2022. Study time: 01:17 PM. Location: Bedside. Study Conclusions - Left ventricle: The cavity size is normal. Wall thickness was in creased in a pattern of moderate LVH. Systolic function was mildly reduced. The estimated ejection fraction was in the range of 45% to 50%. Features are consistent with a pseudonormal left ventricular filling pattern, with concomitant abnormal relaxation and increased filling pressure (grade 2 diast olic dysfunction). - Regional wall motion abnormality: Hypokinesis of the basal- mid anteroseptal myocardium. - Aortic valve: Focal calcification involving the left coronary cusp. Left coronary cusp mobility was severely restricted. - Mitral valve: Moderately calcified annulus. There is a mobile echodensity on the posterior aspect of the mitral annulus which represents a small mobile calcificationversus vegetation. - Right ventricle: The cavity size is severely dilated. Wall thickness is normal. Systolic function was moderately reduced by visual assessment. Tricuspid annular systolic velocity: 8cm/s. - Pulmonary arteries: The peak pressure during systole by Doppler is 61mm Hg. - Inferior chung a cava: The vessel was dilated. The respirophasic diameter changes were blunted (< 50%), consistent with elevated central venous pressure. Impressions: Compared to prior there is likely a mild interval decrease in the LV ejection fraction. The RV is better visualized on the current study and is dilated with moderately depressed function. Cardiac Anatomy Left ventricle: - The cavity size is normal. Wall thickness was increased in a pattern of moderate LVH. Systolic function was mildly reduced. The estimated ejection fraction was in the range of 45% to 50%. Regional wall motion abnormalities: - Hypokinesis of the basal-midanteroseptal myocardium. - Features are consistent with a pseudonormal left ventricular filling pattern, with concomitant abnormal relaxation and increased filling pressure (grade 2 diastolic dysfunction). Aorta: Aortic root: - The aortic root is normal in size. Aortic valve: - Trileaflet; moderately thickened leaflets. Focal calcification involving the left coronary cusp. Left coronary cusp mobil ity was severely restricted. Doppler: - Transvalvular velocity is minimally increased. There is no stenosis. No regurgitation. Mitral valve: - Poorly visualized. Moderately calcified annulus. There is a mobile echodensity on the posterior aspect of the mitral annulus which represents a small mobile calcification versus vegetation. Doppler: - Transvalvular velocity is within the normal range. There is no evidence for stenosis. Trivial regurgitation. Left atrium: - The atrium is mildly dilated. Systemic veins: Inferior vena cava: The vessel was dilated. The respirophasic diameter changes were blunted (< 50%), consistent with elevated central venous pressure. Right ventricle: - The cavity size is severely dilated. Wall thickness is normal. Systolic function was moderately reduced by visual assessment. Tricuspid annular systolic velocity: 8cm/s. Pulmonic valve: Doppler: - Transvalvular velocity is within the normal range. There is no evidence for stenosis. Trivial regurgitation. Tricuspid valve: - Structurally normal valve. Doppler: - Transvalvular velocity is within the normal range. Mild-moderate regurgitation directed eccentrically. Right atrium: - The atrium is normal in size. Pericardium: - There is no pericardial effusion. Systemic veins: Inferior vena cava: - The vessel was dilated. The respirophasic diameter changes were blunted (< 50%), consistent with elevated central venous pressure. Measurements Left ventricle Value 06/01/2020 Ref GINA, LAX (N) 5.7 cm 4.2 - 5.8 ESD, LAX (H) 4.5 cm 2.5 - 4.0 GINA/bsa, LAX (N) 2.2 cm/m^2 2.2 - 3.0 ESD/bsa, LAX (N) 1.7 cm/m^2 1.3 - 2.1 FS, LAX (L) 21 % 25 - 43 FS, LAX chord (L) 21 % 25 - 43 ESD (H) 4.5 cm 2.5 - 4.0 ESD/bsa (N) 1.7 cm/m^2 1.3 - 2.1 PW, ED (H) 1.5 cm 0.6 - 1.0 IVS/PW, ED 1 EDV (H) 160 ml 62 - 150 ESV (H) 92 ml 21 - 61 EF (L) 42 % 52 - 72 SV 113 ml EDV/bsa (N) 61 ml/m^2 34 - 74 ESV/bsa (H) 35 ml/m^2 11 SV/bsa 43 ml/m^2 SV, 1-p A2C 68 ml SV/bsa, 1-p A2C 25.6 ml/m^2 SV, 1-p A4C 94 ml 137 SV/bsa, 1-p A4C 36 ml/m^2 59 E', lat denilson, TDI (N) 10.9 cm/sec 17.9 >=10.0 E/e', lat denilson, TDI 11 8 A', lat denilson, TDI 11.9 cm/sec E'/a', lat denilson, TDI 0.92 S', lat denilson, TDI 9.6 cm/sec 10.9 E', med denlison, TDI (N) 7.1 cm/sec 12.0 >=7.0 E/e', med denilson, TDI 17 12 A', med denilson, TDI 6.4 cm/sec E'/a', med denilson, TDI 1.1 S', med denilson, TDI 7.0 cm/sec 10.6 E', avg, TDI 9.0 cm/sec 15.0 E/e', avg, TDI (N) 13 10 <=14 LVET 290 ms LVOT Value 06/01/2020 Ref Diam, S 2.3 cm Area 4.2 cm^2 Peak cesilia, S 1.29 m/sec 1.38 Mean cesilia, S 0.81 m/sec Peak grad, S 7 mm Hg 8 SV 113 ml SV/bsa 43 ml/m^2 Ventricular septum Value 06/01/2020 Ref IVS, ED (H) 1.5 cm 0.6 - 1.0 Right ventricle Value 06/01/2020 Ref GINA, LAX 2.9 cm 5.8 TAPSE, MM (N) 2.0 cm 2.1 1.7 - 3.1 S' lateral(N) 7.9 cm/sec 13.2 6.0 - 13.4 RVOT Value 06/01/2020 Ref Peak v, S 0.74 m/sec 1.18 Left atrium Value 06/01/2020 Ref AP dim, ES (N) 3.2 cm 4.4 3.0 - 4.0 AP dim index (L) 1.2 cm/m^2 1.9 1.5 - 2.3 Area ES, A4C (H) 26 cm^2 23 <=20 Area ES, A2C 27 cm^2 25 SI dim, A2C 6.4 cm 5.4 - --------- Vol, ES, 1-p A4C (H) 82 ml 68 18 - 58 Vol/bsa, ES, 1-p A4C (N) 31 ml/m^2 29 12 - 37 Vol, ES, 1-p A2C (H) 92 ml 87 18 - 58 Vol/bsa, ES, 1-p A2C (N) 35 ml/m^2 37 11 - 43 Vol, ES, 2-p 87 ml 80 Vol/bsa, ES, 2-p (N) 33 ml/m^2 34 16 - 34 Right atrium Value 06/01/2020 Ref Area, ES, A4C (H) 22 cm^2 22 10 - 18 Aortic valve Value 06/01/2020 Ref Peak v, S 1.7 m/sec 2.2 Mean v, S 1.22 m/sec 1.47 Mean grad, S 7 mm Hg 11 Peak grad, S 11 mm Hg 20 LVOT/AV, VTI ratio 0.78 LEO, VTI 3.2 cm^2 LEO/bsa, VTI1.22 cm^2/m^2 LVOT/AV, Vpeak ratio 0.78 0.62 LEO, Vmax 3.2 cm^2 --- ------- LEO/bsa, Vmax 1.22 cm^2/m^2 LVOT/AV, Vmean ratio 0.66 LEO, Vmean 2.7 cm^2 LEO/bsa, Vmean 1.04 cm^2/m^2 Mitral valve Value 06/01/2020 Ref Peak E 1.2 m/sec 1.49 Peak A 0.97 m/sec Decel time 261 ms 204 Peak grad, D 6 mm Hg 9 Peak E/A ratio 1.2 Pulmonic valve Value 06/01/2020 Ref Peak v, S 1.2 m/sec 1.6 Tricuspid valve Value 06/01/2020 Ref TR peak v (N) 2.8 m/sec <=2.8 Peak RV-RA grad, S 46 mm Hg Max TR cesilia 2.84 m/sec Aortic root Value 06/01/2020Ref Root diam (N) 3.2 cm 2.9 <4.6 Ascending aorta Value 06/01/2020 Ref AAo AP diam, S 2.9 cm AAo AP diam/bsa, S 1.1 cm/m^2 Pulmonary artery Value 06/01/2020 Ref Pressure, S 61 mm Hg Legend: (L) and (H) krunal values outside specified reference range. (N) moran values inside specified reference range. I personally reviewed the images and agree with the interpretation of the resident. Reviewed and confirmed by Vinod Stokes MD [id number] US Abdomen Complete Result Date: 03/17/2022 EXAM: US ABDOMEN COMPLETE EXAM: US DUPLEX [id number] COMPLETE INDICATION: Elevated LFTs. Remote liver transplant. DATE: 03/17/2022 7:45 AM EDT COMPARISON: 01/12/2019 TECHNIQUE: Grayscale imaging was performed for evaluation of the liver, gallbladder, common bile duct, pancreas, spleen, and kidneys; color and spectral (duplex) Doppler analysis of the hepatic vasculature was also performed. FINDINGS: Liver: Normal sonographic appearance of the transplant liver. No focal hepatic observations. Biliary/CBD: 11 mm. No intrahepatic biliary ductal dilatation. Gallbladder: Surgically absent. Pancreas: Obscured by overlying bowel gas. Right kidney: 8.8 cm in length. Increased parenchymal echogenicity. No hydronephrosis. Diffuse cortical thinning. Left kidney: Not visualized due to overlying bowel gas. Spleen: Enlarged measuring 15.6 cm. Aorta and IVC: Visualized portions of the abdominal aorta are not aneurysmal. The retrohepatic IVC is color Doppler patent. Other: No free fluid. DOPPLER: Hepatic Veins: Duplex evaluation of the hepatic vasculature demonstrates normal flow in the right, middle and left hepatic veins. Portal Veins: The right, left and main portal vein demonstrate hepatopetal flow. Hepatic Arteries: Right, main and left hepatic arteries demonstrate normal waveforms. Resistive Indices Main hepatic artery: 0.77 Right hepatic artery: 0.82 Left hepatic artery: 0.75 IMPRESSION: ABDOMEN 1. 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 2. Medical renal disease of the right kidney with left kidney not visualized. LIVER DOPPLER Patent hepatic vasculature with normal arterial waveforms. Approved by Jay Lucas DO on 03/17/2022 10:10 AM EDT I have personallyreviewed the images and I agree with this report. Report Verified by: Manolo Rosenthal MD at 03/17/2022 10:32 AM EDT X-ray Portable Chest Result Date: 03/17/2022 EXAM: XR PORTABLE CHEST INDICATION: Shortness of breath TECHNIQUE: 1 view of the chest. COMPARISON:10/31/2021 FINDINGS: Medical Devices: None. Heart and Mediastinum: Cardiomediastinal silhouette is within normal limits. Lungs and Pleura: Lungs are clear with no focal consolidations, pleural effusions or evidence for pneumothorax. Bones and soft tissues: Unchanged. IMPRESSION: No acute cardiopulmonary abnormality. Approved by Shell Thao MD on 03/17/2022 7:48 AM EDT I have personally reviewed the images and I agree with this report. Report Verified by: Adam Morelos MD at 03/17/2022 7:49 AM EDT US Duplex [id number] Comp Result Date: 03/17/2022 EXAM: US ABDOMEN COMPLETE EXAM: US DUPLEX [id number] COMPLETE INDICATION: Elevated LFTs. Remote liver transplant. DATE: 03/17/2022 7:45 AM EDT COMPARISON: 01/12/2019 TECHNIQUE: Grayscale imaging was performed for evaluation of the liver, gallbladder, common bile duct, pancreas, spleen, and kidneys; color and spectral (duplex) Doppler analysis of the hepatic vasculature was also performed. FINDINGS: Liver: Normal sonographic appearance of the transplant liver. No focal hepatic observations. Biliary/CBD: 11 mm. No intrahepatic biliary ductal dilatation. Gallbladder: Surgically absent. Pancreas: Obscured by overlying bowel gas. Right kidney: 8.8 cm in length. Increased parenchymal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 Clearance Goal: Patient will maintain patent airway Description: Assess and monitor breath sounds, cough and sputum (if present), and intake/output. Collaborate with respiratory therapy to administer medications and treatments. Outcome: Progressing Problem: Inadequate Gas Exchange Goal: Patient is adequately oxygenated and ventilation is improved Description: Assess and monitor vital signs, oxygen saturation, respiratory status to include rate,depth, effort, and lung sounds, mental status, cyanosis, and labs (ABG's). Monitor effects of medications that may sedate the patient. Collaborate with respiratory therapy to administer medications and treatments. Outcome: Progressing * Plan of Care - Augusta Lindsey RN - 03/19/2022 7:27 PM EDT Problem: Glucose Imbalance related to diabetes disease process Goal: Clinical indication of glucose balance is achieved Outcome: Progressing Problem: Glucose Imbalance related to diabetes disease process Goal: Patient's discharge needs are met Outcome: Progressing Problem: Knowledge deficit related to self-management of chronic disease Goal: Patient/family/caregiver demonstrates understanding of disease process, treatment plan, medications, and discharge instructions Outcome: Progressing Problem: Potential for imbalanced nutrition related to metabolic effect of diabetes Goal: Patient's nutritional needs will be met Outcome: Progressing * Plan of Care - Wyatt Nava RN - 03/19/2022 3:31 PM EDT Hemodialysis Treatment Plan of Care [...] Hemodialysis Procedure well Hemodialysis Weights Dry Weight: (tbd) Fluid removal goal: 3500 Last Treatment Post Weight: 132.7 kg (292 lb 8.8 oz) Pre Weight: (!) 138.9 kg (306 lb 3.5 oz) Pre Weight Source: Bed Scale Weight Post Weight: 134.8 kg (297 lb 2.9 oz) Post Weight Source: Bed Scale Weight HD Post Treatment Vitals: BP: 151/59 Heart Rate: 73 Temp: 97 ??F (36.1 ??C) Resp: 20 Fluid Net Fluid Removal Calculation (Any blood products given during HD treatment are accounted forin net fluid removal and will be recorded in I/O upon scanning) Rinseback Volume (mL): 400 mL Hemodialysis Output (mL): 4500 mL *Net fluid removal (ml): 4100 mL* Delivered Dialysis Prescription: Potassium (mEq/L): 3 Calcium (mEq/L): 2.5 Sodium (mEq/L): 140 Bicarbonate (mEq/L): 32 Blood Flow: 300 Dialysate Flow: 600 Prescribed Treatment Time (minutes): 210 Duration of Treatment (minutes): 210 minutes HD Access: LAVF HD Access Function: Well Post-Treatment procedures: Blood returned, Access bleed time < 10 min Needle Size: 15g Lidocaine Used: N/A Access Needle Placement / Position: up and up Other / Comments: Pt tolerated tx well Was a Crit Line Used for this Treatment? [place] of provider contacted to adjusted target fluid removal? Provider Name or n/a: n/a Was an order modification for fluid removal given? NA Did patient meet fluid removal goal of 0.7 L above or below ordered UF? Yes RN Report Received From: Cayetano BATES Report Given To: Cayetano Hepatitis Status: Hep B Surface Ab: positive Hep B Core Total Ab: positive Hepatitis B Surface Ag: negative Machine Number: [id number] Hemodialysis Meds: None Retacrit (Epoetin Giancarlo-epbx) None IV Iron (Venofer) None Reason for admission Hematochezia [K92.1] * Plan of Care - Lina Ulloa RN - 03/18/2022 5:28 PM EDT Problem: Glucose Imbalance related to diabetes disease process Goal: Clinical indication of glucose balance is achieved Outcome: Progressing Goal: Patient's discharge needs are met Outcome: Progressing Problem: Knowledge deficit related to self-management of chronic disease Goal: Patient/family/caregiver demonstrates understanding of disease process, treatment plan, medications, and discharge instructions Outcome: Progressing * Care Coordination - Skylar Hickman RN - 03/17/2022 3:56 PM EDT [facility] Discharge Planning Screen Screening Questions Do you need help filling out medical forms: No Is patient from anywhere other than a private residence? (halfway, SNF, LTC, IPR, LTAC, etc.): No Do you have any services that come into the house to help you? (COA, private duty, HHC, etc): Yes Do you have barriers getting to follow up appointment or obtaining prescriptions?: No Have you been to the (ED/hospital) 4x times in the past 6 months? : No CM has completed a chart review and complete rounds with the team. Per team, the pt is not medically ready for D/C today. CM to follow up with pt and complete full CM assessment tomorrow. Discharge Plan Anticipated discharge plan: Home with no needs Anticipated discharge date: 03/18 CM/SW will continue to follow and remain available for discharge planning needs. Skylar Hickman RN Case Manager [phone] documented in this encounter Plan of Treatment Upcoming Encounters Date Type Department Care Team (Late st Contact Info) Description 07/15/2024 9:00 AM EST Hospital Encounter [facility] Interventional Radiology [address] [place] [phone] Herve Carrillo MD [address] [facility] [place] [phone] Scheduled Orders Name Type Priority Associated Diagnoses Orde r Schedule Surgical Pathology Exam Pathology and Cytology Routine Anemia, unspecified type Release Upon Ordering for 1 Occurrences starting 03/23/2022 Scheduled Referrals Name Type Priority Associated Diagnoses Orde r Schedule Bariatric Surgery / Weight Loss Outpatient Referral Routine Class 3 severe obesity with serious comorbidity and body mass index (BMI) of 40.0 to 44.9 in adult, unspecified obesity type ([facility]) Ordered: 03/25/2022 documented as of this encounter Procedures Procedure Name Priority Date/Time Associated Diagnosis Comments RENAL FUNCTION PANEL W/EGFR Routine 03/25/2022 7:32 AM EDT CBC Routine 03/25/2022 7:32 AM EDT MAGNESIUM Routine 03/25/2022 7:32 AM EDT POC GLU MONITORING DEVICE Routine 03/25/2022 12:16 AM EDT VENOUS BLOOD GAS, LINE/SYRINGE STAT 03/24/2022 11:34 PM EDT POC GLU MONITORING DEVICE Routine 03/24/2022 7:16 PM EDT POC GLU MONITORING DEVICE Routine 03/24/2022 4:09 PM EDT POC GLU MONITORING DEVICE Routine 03/24/2022 12:07 PM EDT POC GLU MONITORING DEVICE Routine 03/24/2022 9:58 AM EDT RENAL FUNCTION PANEL W/EGFR Routine 03/24/2022 7:39 AM EDT CBC Routine 03/24/2022 7:39 AM EDT MAGNESIUM Routine 03/24/2022 7:39 AM EDT FOLATE Routine 03/24/2022 7:39 AM EDT VITAMIN B12 Routine 03/24/2022 7:39 AM EDT RACHAEL RHYTHM STRIP - SCAN 03/23/2022 11:05 PM EDT POC GLU MONITORING DEVICE Routine 03/23/2022 9:14 PM EDT POC GLU MONITORING DEVICE Routine 03/23/2022 5:23 PM EDT POC GLU MONITORING DEVICE Routine 03/23/2022 12:15 PM EDT ENDOSCOPY, COLON Routine 03/23/2022 9:13 AM EDT UPPER GI ENDOSCOPY Routine 03/23/2022 9: 04 AM EDT COLONOSCOPY WITH BIOPSY Combo 03/23/2022 8:54 AM EDT Anemia, unspecified type EGD Combo 03/23/2022 8:54 AM EDT Anemia, unspecified type POC GLU MONITORING DEVICE Routine 03/23/2022 8:29 AM EDT RACHAEL RHYTHM STRIP - SCAN 03/23/2022 7:15 AM EDT RENAL FUNCTION PANEL W/EGFR Routine 03/23/2022 5:55 AM EDT CBC Routine 03/23/2022 5:55 AM EDT MAGNESIUM Routine 03/23/2022 5:55 AM EDT RACHAEL RHYTHM STRIP - SCAN 03/23/2022 1:53 AM EDT POC GLU MONITORING DEVICE Routine 03/23/2022 12:03 AM EDT SURGICAL PATHOLOGY EXAM Routine 03/23/2022 12:00 AM EDT POC GLU MONITORING DEVICE Routine 03/22/2022 5:37 PM EDT RENAL FUNCTION PANEL W/EGFR Timed 03/22/2022 2:51 PM EDT MAGNESIUM Timed 03/22/2022 2:51 PM EDT POC GLU MONITORING DEVICE Routine 03/22/2022 1:20 PM EDT POC GLU MONITORING DEVICE Routine 03/22/2022 7:51 AM EDT RENAL FUNCTION PANEL W/EGFR Routine 03/22/2022 6:22 AM EDT CBC Routine 03/22/2022 6:22 AM EDT MAGNESIUM Routine 03/22/2022 6:22 AM EDT POC GLU MONITORING DEVICE Routine 03/21/2022 4:47 PM EDT BASIC METABOLIC PANEL STAT 03/21/2022 12:19 PM EDT VENOUS O2 SAT, MEASURED Routine 03/21/2022 11:53 AM EDT HEMOGLOBIN, BLOOD GAS Routine 03/21/2022 11:53 AM EDT POC GLU MONITORING DEVICE Routine 03/21/2022 11:46 AM EDT POC GLU MONITORING DEVICE Routine 03/21/2022 8:39 AM EDT RENAL FUNCTION PANEL W/EGFR Routine 03/21/2022 5:12 AM EDT CBC Routine 03/21/2022 5:12 AM EDT MAGNESIUM Routine 03/21/2022 5:12 AM EDT VENOUS O2 SAT, MEASURED Routine 03/20/2022 9:59 PM EDT HEMOGLOBIN, BLOOD GAS Routine 03/20/2022 9:59 PM EDT RACHAEL RHYTHM STRIP - SCAN 03/20/2022 6:29 PM EDT VENOUS O2 SAT, MEASURED Routine 03/20/2022 5:28 PM EDT HEMOGLOBIN, BLOOD GAS Routine 03/20/2022 5:28 PM EDT POC GLU MONITORING DEVICE Routine 03/20/2022 5:21 PM EDT POC GLU MONITORING DEVICE Routine 03/20/2022 11:37 AM EDT CYCLOSPORINE LEVEL Timed 03/20/2022 9: 28 AM EDT POC GLU MONITORING DEVICE Routine 03/20/2022 7:43 AM EDT XR PORTABLE CHEST Routine 03/20/2022 7:0 5 AM EDT VENOUS O2 SAT, MEASURED Routine 03/20/2022 3:58 AM EDT RENAL FUNCTION PANEL W/EGFR Routine 03/20/2022 3:58 AM EDT HEMOGLOBIN, BLOOD GAS Routine 03/20/2022 3:58 AM EDT CBC Routine 03/20/2022 3:58 AM EDT MAGNESIUM Routine 03/20/2022 3:58 AM EDT POC GLU MONITORING DEVICE Routine 03/19/2022 6:36 PM EDT VENOUS O2 SAT, MEASURED Routine 03/19/2022 5:48 PM EDT HEMOGLOBIN, BLOOD GAS Routine 03/19/2022 5:48 PM EDT POC GLU MONITORING DEVICE Routine 03/19/2022 11:50 AM EDT XR PORTABLE CHEST Routine 03/19/2022 11: 15 AM EDT RACHAEL RHYTHM STRIP - SCAN 03/19/2022 9:48 AM EDT POC GLU MONITORING DEVICE Routine 03/19/2022 8:02 AM EDT XR PORTABLE CHEST Routine 03/19/2022 6:2 6 AM EDT BLOOD CULTURE-PERIPHERAL Routine 03/19/2022 5:30 AM EDT BLOOD CULTURE-PERIPHERAL Routine 03/19/2022 5:30 AM EDT VENOUS O2 SAT, MEASURED Routine 03/19/2022 3:46 AM EDT RENAL FUNCTION PANEL W/EGFR Routine 03/19/2022 3:46 AM EDT HEMOGLOBIN, BLOOD GAS Routine 03/19/2022 3:46 AM EDT DIFFERENTIAL Routine 03/19/2022 3:46 AM EDT CBC Routine 03/19/2022 3:46 AM EDT MAGNESIUM Routine 03/19/2022 3:46 AM EDT INSERT ARTERIAL LINE Routine 03/18/2022 8:54 PM EDT POC GLU MONITORING DEVICE Routine 03/18/2022 7:24 PM EDT POC GLU MONITORING DEVICE Routine 03/18/2022 1:38 PM EDT XR PORTABLE CHEST STAT 03/18/2022 12: 48 PM EDT VENOUS O2 SAT, MEASURED Routine 03/18/2022 9:32 AM EDT HEMOGLOBIN, BLOOD GAS STAT 03/18/2022 9:32 AM EDT RIGHT HEART CATH Routine 03/18/2022 9:04 AM EDT CARDIAC CATH DOCUMENTS SCAN 03/18/2022 8:57 AM EDT OCCUPATIONAL EXPOSURE SCREEN REFLEX STAT 03/18/2022 8:51 AM EDT HEPATITIS C ANTIBODY STAT 03/18/2022 8:51 AM EDT HEPATITIS B SURFACE ANTIGEN STAT 03/18/2022 8:51 AM EDT POC TOTAL HEMOGLOBIN Routine 03/18/2022 8:37 AM EDT POC OXYHEMOGLOBIN Routine 03/18/2022 8:3 7 AM EDT POC TOTAL HEMOGLOBIN Routine 03/18/2022 8:33 AM EDT POC OXYHEMOGLOBIN Routine 03/18/2022 8:3 3 AM EDT BLOOD CULTURE-PERIPHERAL Routine 03/18/2022 7:49 AM EDT RENAL FUNCTION PANEL W/EGFR Routine 03/18/2022 4:58 AM EDT CBC Routine 03/18/2022 4:58 AM EDT MAGNESIUM Routine 03/18/2022 4:58 AM EDT POC GLU MONITORING DEVICE Routine 03/18/2022 3:57 AM EDT ECG 12-LEAD (MUSE) Routine 03/18/2022 12 :43 AM EDT BLOOD CULTURE-PERIPHERAL Routine 03/18/2022 12:16 AM EDT POC GLU MONITORING DEVICE Routine 03/17/2022 11:40 PM EDT HEPATITIS B CORE ANTIBODY STAT 03/17/2022 9:23 PM EDT HEPATITIS A IGM STAT 03/17/2022 9:23 PM EDT CYCLOSPORINE LEVEL Timed 03/17/2022 9: 23 PM EDT HEPATITIS C ANTIBODY STAT 03/17/2022 9:23 PM EDT HEPATITIS B SURFACE ANTIBODY, QUANTITATIVE STAT 03/17/2022 9:23 PM EDT HEPATITIS B SURFACE ANTIGEN STAT 03/17/2022 9:23 PM EDT BLOOD CULTURE-PERIPHERAL Routine 03/17/2022 9:23 PM EDT POC GLU MONITORING DEVICE Routine 03/17/2022 6:03 PM EDT ECHOCARDIOGRAM 2D COMPLETE STAT 03/17/2022 1:55 PM EDT POC GLU MONITORING DEVICE Routine 03/17/2022 1:00 PM EDT CBC Routine 03/17/2022 9:57 AM EDT US DUPLEX CCW-ZGACYZ-GLEZENE COMPLETE Routine 03/17/2022 8:09 AM EDT US ABDOMEN COMPLETE Routine 03/17/2022 8 :09 AM EDT XR PORTABLE CHEST Routine 03/17/2022 6:5 7 AM EDT POC GLU MONITORING DEVICE Routine 03/17/2022 5:53 AM EDT HEMOGLOBIN A1C Routine 03/17/2022 4:49 AM EDT 2019 NOVEL CORONAVIRUS (COVID-19), FRANKLYN-B Routine 03/17/2022 3:40 AM EDT ECG 12-LEAD (MUSE) Routine 03/17/2022 3: 37 AM EDT HEPATIC FUNCTION PANEL STAT 11:34 PM EDT RENAL FUNCTION PANEL W/EGFR STAT 03/16/2022 11:34 PM EDT PROTIME-INR STAT 03/16/2022 11:34 PM EDT CBC STAT 03/16/2022 11:34 PM EDT MAGNESIUM STAT 03/16/2022 11:34 PM EDT EKG - SCAN 03/16/2022 documented in this encounter Results * (ABNORMAL) Renal Function Panel w/EGFR (03/25/2022 7:32 AM EDT) Sodium 135 133 - 146 mmol/L 03/25/2022 8:08 AM EDT [facility] Potassium 4.7 3.5 - 5.3 mmol/L 03/25/2022 8:08 AM EDT [facility] Chloride 96(L) 98 - 110 mmol/L 03/25/2022 8:08 AM EDT [facility] CO2 28 21 - 33 mmol/L 03/25/2022 8:08 AM EDT [facility] Anion Gap 11 3 - 16 mmol/L 03/25/2022 8:08 AM EDT [facility] BUN 32(H) 7 - 25 mg/dL 03/25/2022 8:08 AM EDT [facility] Creatinine 6.48(H) 0.60 - 1.30 mg/dL 03/25/2022 8:08 AM EDT [facility] Glucose 132(H) 70 - 100 mg/dL 03/25/2022 8:08 AM EDT [facility] Calcium 8.1(L) 8.6 - 10.3 mg/dL 03/25/2022 8:08 AM EDT [facility] Phosphorus 3.7 2.1 - 4.7 mg/dL 03/25/2022 8:08 AM EDT [facility] Albumin 4.2 3.5 - 5.7 g/dL 03/25/2022 8:08 AM EDT [facility] Osmolality, Calculated 289 278 - 305 mOsm/kg 03/25/2022 8:08 AM EDT [facility] EGFR 10 03/25/2022 8:08 AM EDT [facility] Comment:As of 2021, the estimated [...] Disease. Am J Kidney Dis. 2020. Plasma 03/25/2022 7:32 AM EDT 03/25/2022 7:38 AM EDT us Laura Gonzalez MD LAB BLOOD ORDERABLES Final Resu lt [facility] [address] * (ABNORMAL) CBC (03/25/2022 7:32 AM EDT) WBC 2.9(L) 3.8 - 10.8 10E3/uL 03/25/2022 7:47 AM EDT [facility] RBC 2.45(L) 4.20 - 5.80 10E6/uL 03/25/2022 7:47 AM EDT [facility] Hemoglobin 8.4(L) 13.2 - 17.1 g/dL 03/25/2022 7:47 AM EDT [facility] Hematocrit 24.2(L) 38.5 - 50.0 % 03/25/2022 7:47 AM EDT [facility] MCV 98.8 80.0 - 100.0 fL 03/25/2022 7:47 AM EDT [facility] MCH 34.3(H) 27.0 - 33.0 pg 03/25/2022 7:47 AM EDT [facility] MCHC 34.7 32.0 - 36.0 g/dL 03/25/2022 7:47 AM EDT [facility] RDW 13.6 11.0 - 15.0 % 03/25/2022 7:47 AM EDT [facility] Platelets 166 140 - 400 10E3/uL 03/25/2022 7:47 AM EDT [facility] MPV 7.4(L) 7.5 - 11.5 fL 03/25/2022 7:47 AM EDT [facility] Whole Blood 03/25/2022 7:32 AM EDT 03/25/2022 7:38 AM EDT Laura Gonzalez MD LAB BLOOD ORDERABLES Final Resu lt [facility] [address] [place] [address] * Magnesium (03/25/2022 7:32 AM EDT) Pathologist [facility] Magnesium 2.1 1.5 - 2.5 mg/dL 03/25/2022 8:08 AM EDT [facility] Plasma 03/25/2022 7:32 AM EDT 03/25/2022 7:38 AM EDT Laura Gonzalez MD LAB BLOOD ORDERABLES Final Resu lt [facility] [address] [place] [address] * (ABNORMAL) POC Glucose Monitoring Device (03/25/2022 12:16 AM EDT) POC Glucose Monitoring Device 135(H) 70 - 100 mg/dL 03/25/2022 12:20 AM EDT [facility] Blood 03/25/2022 12:1 6 AM EDT 03/25/2022 12:20 AM EDT us Kelsey Carcamo MD POINT OF CARE TEST ORDERA BLES Final Result [facility] [address] [place] [address], [facility] * (ABNORMAL) Venous Blood Gas, Line/Syringe (03/24/2022 11:34 PM EDT) PH-Line Draw 7.40 7.32 - 7.42 03/24/2022 11:42 PM EDT [facility] PCO2-Line Draw 45 41 - 51 mm Hg 03/24/2022 11:42 PM EDT [facility] PO2-Line Draw 50(H) 25 - 40 mm Hg 03/24/2022 11:42 PM EDT [facility] HCO3-Line Draw 28 24 - 28 mmol/L 03/24/2022 11:42 PM EDT [facility] CO2 Content-Line Draw 29 25 - 29 mmol/L 03/24/2022 11:42 PM EDT [facility] Base Excess-Line Draw 2.5 -2.0 - 3.0 mmol/L 03/24/2022 11:42 PM EDT [facility] %HBO2-Line Draw 83.1(H) 40.0 - 70.0 % 03/24/2022 11:42 PM EDT [facility] Carboxyhgb-Nemo e Draw 1.9 % 03/24/2022 11:42 PM EDT [facility] Comment: CARBOXYHEMOGLOBIN (CO) REFERENCE RANGES: Non-Smokers: ??<2 % ? Smokers: ??<8 % TOXIC: >20 % Methemoglobin- Line Draw 0.6 0.0 - 1.5 % 03/24/2022 11:42 PM EDT [facility] Reduced Hemoglobin-Nemo e Draw 14.4(H) 0.0 - 5.0 % 03/24/2022 11:42 PM EDT [facility] Venous, Line Draw 03/24/2022 11:34 PM EDT 03/24/2022 11:41 PM EDT Ky Hills MD LAB BLOOD ORDERABLES Final Result Performing Organization Address [facility] Co de Phone Number [address] * (ABNORMAL) POC Glucose Monitoring Device (03/24/2022 7:16 PM EDT) POC Glucose Monitoring Device 197(H) 70 - 100 mg/dL 03/24/2022 7:17 PM EDT [facility] Blood 03/24/2022 7:16 PM EDT 03/24/2022 7:17 PM EDT Kelsey Carcamo MD POINT OF CARE TEST ORDERA BLES Final Result Performing Organization Address [facility] de Phone Number [facility] [address] [place] [address] * (ABNORMAL) POC Glucose Monitoring Device (03/24/2022 4:09 PM EDT) POC Glucose Monitoring Device 164(H) 70 - 100 mg/dL 03/24/2022 4:10 PM EDT [facility] Blood 03/24/2022 4:09 PM EDT 03/24/2022 4:09 PM EDT Kelsey Carcamo MD POINT OF CARE TEST ORDERA BLES Final Result Performing Organization Address [facility] Co de Phone Number [facility] [address] [place] [address] * (ABNORMAL) POC Glucose Monitoring Device (03/24/2022 12:07 PM EDT) POC Glucose Monitoring Device 106(H) 70 - 100 mg/dL 03/24/2022 12:08 PM EDT [facility] Blood 03/24/2022 12:0 7 PM EDT 03/24/2022 12:08 PM EDT Kelsey Carcamo MD POINT OF CARE TEST ORDERA BLES Final Result [facility] [address] * (ABNORMAL) POC Glucose Monitoring Device (03/24/2022 9:58 AM EDT) POC Glucose Monitoring Device 105(H) 70 - 100 mg/dL 03/24/2022 9:59 AM EDT [facility] Blood 03/24/2022 9:58 AM EDT 03/24/2022 9:59 AM EDT Kelsey Carcamo MD POINT OF CARE TEST ORDERA BLES Final Result Performing Organization Address [facility] Co de Phone Number [facility] [address] * (ABNORMAL) Renal Function Panel w/EGFR (03/24/2022 7:39 AM EDT) Sodium 130(L) 133 - 146 mmol/L 03/24/2022 8:32 AM EDT [facility] Potassium 4.9 3.5 - 5.3 mmol/L 03/24/2022 8:32 AM EDT [facility] Chloride 94(L) 98 - 110 mmol/L 03/24/2022 8:32 AM EDT [facility] CO2 24 21 - 33 mmol/L 03/24/2022 8:32 AM EDT [facility] Anion Gap 12 3 - 16 mmol/L 03/24/2022 8:32 AM EDT [facility] BUN 40(H) 7 - 25 mg/dL 03/24/2022 8:32 AM EDT [facility] Creatinine 6.97(H) 0.60 - 1.30 mg/dL 03/24/2022 8:32 AM EDT [facility] Glucose 101(H) 70 - 100 mg/dL 03/24/2022 8:32 AM EDT [facility] Calcium 8.0(L) 8.6 - 10.3 mg/dL 03/24/2022 8:32 AM EDT [facility] Phosphorus 3.9 2.1 - 4.7 mg/dL 03/24/2022 8:32 AM EDT [facility] Albumin 4.1 3.5 - 5.7 g/dL 03/24/2022 8:32 AM EDT [facility] Osmolality, Calculated 280 278 - 305 mOsm/kg 03/24/2022 8:32 AM EDT [facility] EGFR 9 03/24/2022 8:32 AM EDT [facility] Comment:As of 2021, the estimated [...] Disease. Am J Kidney Dis. 2020. Plasma 03/24/2022 7:39 AM EDT 03/24/2022 8:00 AM EDT us Laura Gonzalez MD LAB BLOOD ORDERABLES Final Resu lt [facility] [address] [place] [address] * (ABNORMAL) CBC (03/24/2022 7:39 AM EDT) WBC 2.8(L) 3.8 - 10.8 10E3/uL 03/24/2022 8:37 AM EDT [facility] Comment:WBCs are consistent with smear. RBC 2.49(L) 4.20 - 5.80 10E6/uL 03/24/2022 8:37 AM EDT [facility] Hemoglobin 8.4(L) 13.2 - 17.1 g/dL 03/24/2022 8:37 AM EDT [facility] Hematocrit 24.6(L) 38.5 - 50.0 % 03/24/2022 8:37 AM EDT [facility] MCV 99.0 80.0 - 100.0 fL 03/24/2022 8:37 AM EDT [facility] MCH 34.0(H) 27.0 - 33.0 pg 03/24/2022 8:37 AM EDT [facility] MCHC 34.3 32.0 - 36.0 g/dL 03/24/2022 8:37 AM EDT [facility] RDW 14.0 11.0 - 15.0 % 03/24/2022 8:37 AM EDT [facility] Platelets 160 140 - 400 10E3/uL 03/24/2022 8:37 AM EDT [facility] Comment:Specimen checked for clots. None detected. MPV 7.3(L) 7.5 - 11.5 fL 03/24/2022 8:37 AM EDT [facility] Whole Blood 03/24/2022 7:39 AM EDT 03/24/2022 8:00 AM EDT us Laura Gonzalez MD LAB BLOOD ORDERABLES Final Resu lt Performing Organization Address City/[facility]/ZIP Co de Phone Number [facility] [address] [place] [address] * Magnesium (03/24/2022 7:39 AM EDT) Magnesium 1.9 1.5 - 2.5 mg/dL 03/24/2022 8:32 AM EDT [facility] Plasma 03/24/2022 7:39 AM EDT 03/24/2022 8:00 AM EDT Laura Gonzalez MD LAB BLOOD ORDERABLES Final Resu lt [facility] [address] [place] [address] * Vitamin B12 (03/24/2022 7:39 AM EDT) Vitamin B-12 325 180 - 914 pg/mL 03/24/2022 8:52 AM EDT [facility] Serum 03/24/2022 7:39 AM EDT 03/24/2022 8:00 AM EDT Claudia Arandaerponcho PharmD LAB BLOOD ORDERABLES Yoselin l Result Performing Organization Address [facility] Co de Phone Number [facility] [address] [place] [address] * Folate (Folic Acid) (03/24/2022 7:39 AM EDT) Folic Acid 15.40 5.90 - 24.80 ng/mL 03/24/2022 8:50 AM EDT [facility] Serum 03/24/2022 7:39 AM EDT 03/24/2022 8:00 AM EDT Claudia Manojdayanara PharmD LAB BLOOD ORDERABLES Yoselin l Result Performing Organization Address [facility] Co de Phone Number [facility] [address] [place] [address] * RACHAEL RHYTHM STRIP - SCAN (03/23/2022 11:05 PM EDT) us Scanning Uchhim SCAN DOCS - NO RESULTS Final Res ult * (ABNORMAL) POC Glucose Monitoring Device (03/23/2022 9:14 PM EDT) POC Glucose Monitoring Device 175(H) 70 - 100 mg/dL 03/23/2022 9:15 PM EDT [facility] Blood 03/23/2022 9:14 PM EDT 03/23/2022 9:15 PM EDT Kelsey Carcamo MD POINT OF CARE TEST ORDERA BLES Final Result Performing Organization Address [facility] Co de Phone Number [facility] [address] [place] [address] * (ABNORMAL) POC Glucose Monitoring Device (03/23/2022 5:23 PM EDT) POC Glucose Monitoring Device 122(H) 70 - 100 mg/dL 03/23/2022 5:24 PM EDT [facility] Blood 03/23/2022 5:23 PM EDT 03/23/2022 5:23 PM EDT Kelsey Carcamo MD POINT OF CARE TEST ORDERA BLES Final Result Performing Organization Address City/[facility]/ZIP Co de Phone Number [address] * (ABNORMAL) POC Glucose Monitoring Device (03/23/2022 12:15 PM EDT) POC Glucose Monitoring Device 161(H) 70 - 100 mg/dL 03/23/2022 12:26 PM EDT [facility] Blood 03/23/2022 12:1 5 PM EDT 03/23/2022 12:26 PM EDT Kelsey Carcamo MD POINT OF CARE TEST ORDERA BLES Final Result Performing Organization Address [facility] Co de Phone Number [address] * Endoscopy, colon, diagnostic (03/23/2022 9:13 AM EDT) 03/23/2022 9:13 AM EDT Narrative [facility] - 03/23/2022 9:51 AM EDT [id number] Procedure Date: 03/23/2022 9:13 AM ? Patient Name: Leoncio Rollins ? Date of : 1975 ?Admit Type: [...] verified by the physician, the nurse, the section supervisor ? and the technician automatic in the procedure room. Mental ? Status [...] Procedure Code(s): ? --- Professional --- ? 97006, GC, Colonoscopy, flexible; diagnostic, ? including collection of specimen(s) by brushing or ? washing, when performed (separate procedure) Diagnosis Code(s): ? --- Professional --- ? K64.8, Other hemorrhoids ? K92.1, Melena (includes Hematochezia) CPT copyright 2020 [employer]. All rights reserved. The codes documented in this report are preliminary and upon control systems designer review may be revised to meet current compliance requirements. ROXANN MOORE Roxann Moore, 03/23/2022 9:51:42 AM Husam Wilmer Hoyos, 03/23/2022 9:50:30 AM Scope Withdrawal Time 0 hours 8 minutes 24 seconds Total Procedure Duration Time 0 hours 15 minutes 38 seconds Scope In: 9:18:06 AM Scope Out: 9:33:44 AM ? [address] [place] [id number] us Provider Not In System GI PROCEDURE ORDERABLES F inal Result Performing Organization Address City/State/[facility] Co de Phone Number [facility] [address] [facility] [place] [address] * UPPER GI ENDOSCOPY (03/23/2022 9:04 AM EDT) 03/23/2022 9:04 AM EDT Narrative [facility] - 03/23/2022 9:49 AM EDT [id number] Procedure Date: 03/23/2022 9:04 AM ? Patient Name: Leoncio Rollins ? Date of : 1975 ?Admit Type: Inpatient Age: 47 ? Gender: Male Note Status: Finalized ?Attending MD: Roxann Moore , Procedure: ? Upper GI endoscopy Indications: ? Dyspepsia Patient Profile: ? 47yo male with history of ESRD, OLT in 2018 here for ? hematochezia however transferred to CVICU for volume ? overload requiring hemodynamic monitoring. Also having ? abdominal pain and reports history of gastric ulcers. Providers: ? Roxann Moore, Wilmer Hoyos (Fellow) Referring MD: ?Provider Not in System [...] verified by the physician, the nurse, the section supervisor ? and the technician automatic in the procedure room. Mental ? Status [...] ? re-assessed after the procedure. ? After obtaining informed consent, the endoscope was ? passed under direct vision. Throughout the procedure, ? the patient's blood pressure, pulse, and oxygen ? saturations were monitored continuously. The Endoscope ? was introduced through the mouth, and advanced to the ? second part of duodenum. The upper GI endoscopy was ? accomplished without difficulty. The patient tolerated ? the procedure well. ? Findings: ? A small hiatal hernia was present. ? A 6 mm scar was found in the lower third of the esophagus. ? One non-bleeding superficial gastric ulcer with a clean ulcer base ? (Reinaldo Class III) was found on the lesser curvature of the stomach. ? The lesion was 5 mm in largest dimension. Biopsies were taken with a ? cold forceps for histology for evaluation of CMV/HSV/H. pylori. ? Localized mildly erythematous mucosa without bleeding was found at the ? incisura. ? Diffuse mucosal changes characterized by discoloration were found in the ? second portion of the duodenum consistent with hemosiderin. ? The exam of the duodenum was otherwise normal. ? Estimated Blood Loss: ? Estimated blood loss was minimal. Impression: ?- Small hiatal hernia. ? - Non-bleeding gastric ulcer with a clean ulcer base ? (Reinaldo Class III). Biopsied. ? - Erythematous mucosa in the incisura. ? - Mucosal changes in the duodenum. Recommendation: ?- Await pathology results. ? - Repeat upper endoscopy in 8 weeks for surveillance. ? - Continue PPI PO BID ? - Return to liver clinic as previously scheduled. ? Procedure Code(s): ? --- Professional --- ? 81728, Esophagogastroduodenoscopy, flexible, ? transoral; with biopsy, single or multiple Diagnosis Code(s): ? --- Professional --- ? K44.9, Diaphragmatic hernia without obstruction or ? gangrene ? K25.9, Gastric ulcer, unspecified as acute or chronic, ? without hemorrhage or perforation ? K31.89, Other diseases of stomach and duodenum ? R10.13, Epigastric pain CPT copyright 2020 [employer]. All rights reserved. The codes documented in this report are preliminary and upon control systems designer review may be revised to meet current compliance requirements. ROXANN MOORE Roxann Moore, 03/23/2022 9:49:40 AM Husam Wilmer Hoyos, 03/23/2022 9:45:30 AM Total Procedure Duration Time 0 hours 7 minutes 26 seconds Scope In: 9:03:43 AM Scope Out: 9:11:09 AM ? [address] [place] [address] us Provider Not In System PROCEDURE/MINOR SURGICAL ORDERABLES Final Result Performing Organization Address City/[facility]/ZIP Co de Phone Number [facility] [place] [address] * (ABNORMAL) POC Glucose Monitoring Device (03/23/2022 8:29 AM EDT) POC Glucose Monitoring Device 101(H) 70 - 100 mg/dL 03/23/2022 8:29 AM EDT [facility] Blood 03/23/2022 8:29 AM EDT 03/23/2022 8:29 AM EDT us Kelsey Carcamo MD POINT OF CARE TEST ORDERA BLES Final Result Performing Organization Address City/[facility]/ZIP Co de Phone Number [address] * RACHAEL RHYTHM STRIP - SCAN (03/23/2022 7:15 AM EDT) us Scanning Uchhim SCAN DOCS - NO RESULTS Final Res ult * Magnesium, AM (03/23/2022 5:55 AM EDT) Magnesium 1.9 1.5 - 2.5 mg/dL 03/23/2022 7:03 AM EDT [facility] Plasma 03/23/2022 5:55 AM EDT 03/23/2022 6:26 AM EDT us Chito Santizo MD LAB BLOOD ORDERABLES Final Res ult [facility] [address] [place] [address], [facility] * (ABNORMAL) Renal Function Panel w/EGFR (03/23/2022 5:55 AM EDT) Sodium 133 133 - 146 mmol/L 03/23/2022 7:03 AM EDT [facility] Potassium 4.8 3.5 - 5.3 mmol/L 03/23/2022 7:03 AM EDT [facility] Chloride 97(L) 98 - 110 mmol/L 03/23/2022 7:03 AM EDT [facility] CO2 25 21 - 33 mmol/L 03/23/2022 7:03 AM EDT [facility] Anion Gap 11 3 - 16 mmol/L 03/23/2022 7:03 AM EDT [facility] BUN 28(H) 7 - 25 mg/dL 03/23/2022 7:03 AM EDT [facility] Creatinine 5.65(H) 0.60 - 1.30 mg/dL 03/23/2022 7:03 AM EDT [facility] Glucose 87 70 - 100 mg/dL 03/23/2022 7:03 AM EDT [facility] Calcium 8.4(L) 8.6 - 10.3 mg/dL 03/23/2022 7:03 AM EDT [facility] Phosphorus 3.6 2.1 - 4.7 mg/dL 03/23/2022 7:03 AM EDT [facility] Albumin 4.2 3.5 - 5.7 g/dL 03/23/2022 7:03 AM EDT [facility] Osmolality, Calculated 281 278 - 305 mOsm/kg 03/23/2022 7:03 AM EDT [facility] EGFR 12 03/23/2022 7:03 AM EDT [facility] Comment:As of 2021, the estimated [...] Disease. Am J Kidney Dis. 2020. Plasma 03/23/2022 5:55 AM EDT 03/23/2022 6:26 AM EDT us Chito Santizo MD LAB BLOOD ORDERABLES Final Res ult [facility] [address] [place] [address], [facility] * (ABNORMAL) CBC, AM (03/23/2022 5:55 AM EDT) WBC 3.1(L) 3.8 - 10.8 10E3/uL 03/23/2022 6:35 AM EDT [facility] RBC 2.68(L) 4.20 - 5.80 10E6/uL 03/23/2022 6:35 AM EDT [facility] Hemoglobin 9.0(L) 13.2 - 17.1 g/dL 03/23/2022 6:35 AM EDT [facility] Hematocrit 26.8(L) 38.5 - 50.0 % 03/23/2022 6:35 AM EDT [facility] MCV 100.0 80.0 - 100.0 fL 03/23/2022 6:35 AM EDT [facility] MCH 33.6(H) 27.0 - 33.0 pg 03/23/2022 6:35 AM EDT [facility] MCHC 33.6 32.0 - 36.0 g/dL 03/23/2022 6:35 AM EDT [facility] RDW 14.1 11.0 - 15.0 % 03/23/2022 6:35 AM EDT [facility] Platelets 160 140 - 400 10E3/uL 03/23/2022 6:35 AM EDT [facility] MPV 7.4(L) 7.5 - 11.5 fL 03/23/2022 6:35 AM EDT [facility] Whole Blood 03/23/2022 5:55 AM EDT 03/23/2022 6:26 AM EDT us Chito Santizo MD LAB BLOOD ORDERABLES Final Res ult Performing Organization Address [facility] Co de Phone Number [facility] [address] * RACHAEL RHYTHM STRIP - SCAN (03/23/2022 1:53 AM EDT) us Scanning Uchhim SCAN DOCS - NO RESULTS Final Res ult * (ABNORMAL) POC Glucose Monitoring Device (03/23/2022 12:03 AM EDT) POC Glucose Monitoring Device 161(H) 70 - 100 mg/dL 03/23/2022 12:14 AM EDT [facility] Blood 03/23/2022 12:0 3 AM EDT 03/23/2022 12:13 AM EDT Kelsey Carcamo MD POINT OF CARE TEST ORDERA BLES Final Result Performing Organization Address [facility] de Phone Number [address] * Surgical Pathology Exam (03/23/2022 12:00 AM EDT) 03/23/2022 03/23/2022 Narrative [facility] - 03/23/2022 12:00 AM EDT CASE: [id number] PATIENT: LEONCIO ROLLINS Clinical History: ?? egd with biopsy Pre-Operative Diagnosis: anemia, unspecified type Post-Operative Diagnosis: ? gastritis, hiatal hernia, gastric ulcers, internal hemorrhoids Specimen(s) Submitted: ?? A. gastric bx r/o hp, cmv, hsv CPT Code(s): ?? 98675 X 1; 19247 X 2; 17141 X 1 Additional Information: FINAL DIAGNOSIS: Stomach, biopsy: - ??Minimal inactive chronic gastritis. - ??ImmunostainS for H. pylori, CMV and HSV are negative. - ??Negative for intestinal metaplasia or dysplasia. Kenia Gross Description: Received in formalin, labeled with the patient's name Leoncio Rollins and gastric bx rule out H. pylori, CMV, HSV is a 0.4 cm gaytan tissue fragment, which is filtered into a biopsy bag and entirely submitted in cassette [id number]. ??(NAVNEET Gotti/faye) Microscopic Description: Two HE and three immunostain (H. pylori, CMV and HSV) slides examined. Kenia Hernandez, the attending pathologist, have personally reviewed all prosector/resident work and pathology slides to determine final diagnosis. Some tests use analyte-specific reagents (ASRs). These tests were developed and their performance characteristics determined by [facility]. They have not been cleared or approved by the US Food and Drug Administration. The FDA has determined that such clearance or approval is not necessary. These tests are used for clinical purposes. They should not be regarded as investigational or for research. Listed are IHC: CMV, EBV, HSV, PIN4, AE1/3/CAM 5.2, p504s, adenovirus. Probes consist of LISA, kappa, lambda, HPV family 6, HPV family 16, SIS HER2/carlos. Analyte-specific reagents (ASRs) were used in testing. These tests were developed and their performance characteristics determined by [facility]. They have not been cleared or approved by the US Food and Drug Administration. FDA does not require these tests to go through premarket FDA review. These tests are used for clinical purposes. They should not be regarded as investigational or for research. This laboratory is certified under the Clinical Laboratory Improvement Amendments (CLIA) as qualified to perform high complexity clinical laboratory testing. ?? Control Materials Reacted Appropriately. Final Diagnosis performed by NICHELLE ERICKSON MD, PhD Pathologist Electronically signed 03/24/2022 04:06:04 PM ?? The Pathologist signing this report is located at [facility], [address] [place] [address], [place], [place], [facility], , CLIA ID: [id number] us Roxann Moore MD PATHOLOGY/CYTOLOGY ORDERABLES Final Result Performing Organization Address City/[facility]/ZIP Co de Phone Number [facility] * (ABNORMAL) POC Glucose Monitoring Device (03/22/2022 5:37 PM EDT) POC Glucose Monitoring Device 174(H) 70 - 100 mg/dL 03/22/2022 5:38 PM EDT [facility] Blood 03/22/2022 5:37 PM EDT 03/22/2022 5:38 PM EDT us Kelsey Carcamo MD POINT OF CARE TEST ORDERA BLES Final Result Performing Organization Address [facility] Co de Phone Number [facility] [address] [place] [address] * Magnesium (03/22/2022 2:51 PM EDT) Magnesium 1.8 1.5 - 2.5 mg/dL 03/22/2022 3:55 PM EDT [facility] Plasma 03/22/2022 2:51 PM EDT 03/22/2022 3:10 PM EDT us Chito Santizo MD LAB BLOOD ORDERABLES Final Res ult Performing Organization Address [facility]/ZIP Co de Phone Number [facility] [address] [place] [address] * (ABNORMAL) Renal Function Panel w/EGFR (03/22/2022 2:51 PM EDT) Sodium 135 133 - 146 mmol/L 03/22/2022 3:55 PM EDT [facility] Potassium 4.4 3.5 - 5.3 mmol/L 03/22/2022 3:55 PM EDT [facility] Chloride 98 98 - 110 mmol/L 03/22/2022 3:55 PM EDT [facility] CO2 28 21 - 33 mmol/L 03/22/2022 3:55 PM EDT [facility] Anion Gap 9 3 - 16 mmol/L 03/22/2022 3:55 PM EDT [facility] BUN 21 7 - 25 mg/dL 03/22/2022 3:55 PM EDT [facility] Creatinine 4.36(H) 0.60 - 1.30 mg/dL 03/22/2022 3:55 PM EDT [facility] Glucose 191(H) 70 - 100 mg/dL 03/22/2022 3:55 PM EDT [facility] Calcium 8.7 8.6 - 10.3 mg/dL 03/22/2022 3:55 PM EDT [facility] Phosphorus 2.5 2.1 - 4.7 mg/dL 03/22/2022 3:55 PM EDT [facility] Albumin 4.1 3.5 - 5.7 g/dL 03/22/2022 3:55 PM EDT [facility] Osmolality, Calculated 288 278 - 305 mOsm/kg 03/22/2022 3:55 PM EDT [facility] EGFR 16 03/22/2022 3:55 PM EDT [facility] Comment:As of 2021, the estimated [...] Disease. Am J Kidney Dis. 2020. Plasma 03/22/2022 2:51 PM EDT 03/22/2022 3:10 PM EDT Chito Santizo MD LAB BLOOD ORDERABLES Final Res ult Performing Organization Address [facility] Co de Phone Number [facility] [address] * (ABNORMAL) POC Glucose Monitoring Device (03/22/2022 1:20 PM EDT) POC Glucose Monitoring Device 155(H) 70 - 100 mg/dL 03/22/2022 1:31 PM EDT [facility] Blood 03/22/2022 1:20 PM EDT 03/22/2022 1:31 PM EDT Kelsey Carcamo MD POINT OF CARE TEST ORDERA BLES Final Result Performing Organization Address [facility] de Phone Number [facility] [address] [place] [address] * (ABNORMAL) POC Glucose Monitoring Device (03/22/2022 7:51 AM EDT) POC Glucose Monitoring Device 138(H) 70 - 100 mg/dL 03/22/2022 7:53 AM EDT [facility] Blood 03/22/2022 7:51 AM EDT 03/22/2022 7:53 AM EDT Kelsey Carcamo MD POINT OF CARE TEST ORDERA BLES Final Result Performing Organization Address [facility] Co de Phone Number [facility] [address] [place] [address] * (ABNORMAL) Renal Function Panel w/EGFR (03/22/2022 6:22 AM EDT) Sodium 133 133 - 146 mmol/L 03/22/2022 7:43 AM EDT [facility] Potassium 5.8(H) 3.5 - 5.3 mmol/L 03/22/2022 7:43 AM EDT [facility] Comment:Hemolysis Present: R esults may be influenced artificially. Recommend recollection as clinically indicated. Chloride 98 98 - 110 mmol/L 03/22/2022 7:43 AM EDT [facility] CO2 25 21 - 33 mmol/L 03/22/2022 7:43 AM EDT [facility] Anion Gap 10 3 - 16 mmol/L 03/22/2022 7:43 AM EDT [facility] BUN 37(H) 7 - 25 mg/dL 03/22/2022 7:43 AM EDT [facility] Creatinine 6.58(H) 0.60 - 1.30 mg/dL 03/22/2022 7:43 AM EDT [facility] Glucose 123(H) 70 - 100 mg/dL 03/22/2022 7:43 AM EDT [facility] Calcium 8.4(L) 8.6 - 10.3 mg/dL 03/22/2022 7:43 AM EDT [facility] Phosphorus 3.7 2.1 - 4.7 mg/dL 03/22/2022 7:43 AM EDT [facility] Comment:HEMOLYSIS EVIDENT. R ESULTS MAY BE INFLUENCED. Albumin 3.9 3.5 - 5.7 g/dL 03/22/2022 7:43 AM EDT [facility] Osmolality, Calculated 286 278 - 305 mOsm/kg 03/22/2022 7:43 AM [facility] EGFR 10 03/22/2022 7:43 AM T [facility] Comment:As of 2021, the estimated [...] Disease. Am J Kidney Dis. 2020. Plasma 03/22/2022 6:22 AM EDT 03/22/2022 7:02 AM EDT us Irina Craven MD LAB BLOOD ORDERABLES Final Resul t [facility] [address] * Magnesium (03/22/2022 6:22 AM EDT) Magnesium 1.9 1.5 - 2.5 mg/dL 03/22/2022 7:43 AM EDT [facility] Comment:HEMOLYSIS EVIDENT. R ESULTS MAY BE INFLUENCED. Plasma 03/22/2022 6:22 AM EDT 03/22/2022 7:02 AM EDT us Irina Craven MD LAB BLOOD ORDERABLES Final Resul t Performing Organization Address [facility] Co de Phone Number [facility] [address] * (ABNORMAL) CBC (03/22/2022 6:22 AM EDT) WBC 3.0(L) 3.8 - 10.8 10E3/uL 03/22/2022 7:11 AM EDT [facility] RBC 2.50(L) 4.20 - 5.80 10E6/uL 03/22/2022 7:11 AM EDT [facility] Hemoglobin 8.3(L) 13.2 - 17.1 g/dL 03/22/2022 7:11 AM EDT [facility] Hematocrit 25.3(L) 38.5 - 50.0 % 03/22/2022 7:11 AM EDT [facility] MCV 101.1(H) 80.0 - 100.0 fL 03/22/2022 7:11 AM EDT [facility] MCH 33.2(H) 27.0 - 33.0 pg 03/22/2022 7:11 AM EDT [facility] MCHC 32.8 32.0 - 36.0 g/dL 03/22/2022 7:11 AM EDT [facility] RDW 14.5 11.0 - 15.0 % 03/22/2022 7:11 AM EDT [facility] Platelets 161 140 - 400 10E3/uL 03/22/2022 7:11 AM EDT [facility] MPV 7.8 7.5 - 11.5 fL 03/22/2022 7:11 AM EDT [facility] Whole Blood 03/22/2022 6:22 AM EDT 03/22/2022 7:03 AM EDT Irina Craven MD LAB BLOOD ORDERABLES Final Resul t [facility] [address] * (ABNORMAL) POC Glucose Monitoring Device (03/21/2022 4:47 PM EDT) POC Glucose Monitoring Device 151(H) 70 - 100 mg/dL 03/21/2022 4:48 PM EDT [facility] Blood 03/21/2022 4:47 PM EDT 03/21/2022 4:48 PM EDT us Kelsey Carcamo MD POINT OF CARE TEST ORDERA BLES Final Result Performing Organization Address City/[facility]/ZIP Co de Phone Number [facility] [address] * (ABNORMAL) Basic Metabolic Panel (03/21/2022 12:19 PM EDT) Sodium 136 133 - 146 mmol/L 03/21/2022 1:11 PM EDT [facility] Potassium 4.6 3.5 - 5.3 mmol/L 03/21/2022 1:11 PM EDT [facility] Chloride 100 98 - 110 mmol/L 03/21/2022 1:11 PM EDT [facility] CO2 26 21 - 33 mmol/L 03/21/2022 1:11 PM EDT [facility] Anion Gap 10 3 - 16 mmol/L 03/21/2022 1:11 PM EDT [facility] BUN 25 7 - 25 mg/dL 03/21/2022 1:11 PM EDT [facility] Creatinine 5.05(H) 0.60 - 1.30 mg/dL 03/21/2022 1:11 PM EDT [facility] Glucose 153(H) 70 - 100 mg/dL 03/21/2022 1:11 PM EDT [facility] Calcium 8.9 8.6 - 10.3 mg/dL 03/21/2022 1:11 PM EDT [facility] Osmolality, Calculated 289 278 - 305 mOsm/kg 03/21/2022 1:11 PM EDT [facility] EGFR 13 03/21/2022 1:11 PM EDT [facility] Comment:As of 2021, the estimated [...] Disease. Am J Kidney Dis. 2020. Plasma 03/21/2022 12:1 9 PM EDT 03/21/2022 12:40 PM EDT us Lali Loo MD LAB BLOOD ORDERABLES Final Resu lt [facility] [address] * (ABNORMAL) Hemoglobin, Blood Gas (03/21/2022 11:53 AM EDT) Hgb, blood gas 9.1(L) 14.0 - 18.0 g/dL 03/21/2022 12:00 PM EDT [facility] Blood, Arterial 03/21/2022 1 1:53 AM EDT 03/21/2022 11:58 AM EDT us Ana Mercado MD LAB BLOOD ORDERABLES Final Resu lt Performing Organization Address City/[facility]/ZIP Co de Phone Number [facility] [address] * (ABNORMAL) VENOUS O2 SAT, MEASURED (03/21/2022 11:53 AM EDT) %HBO2, Venous 67.1 40.0 - 70.0 % 03/21/2022 12:00 PM EDT [facility] Carboxyhemoglo bin, Venous 1.9 0.0 - 2.0 % 03/21/2022 12:00 PM EDT [facility] Comment: CARBOXYHEMOGLOBIN (CO) REFERENCE RANGES: Non-Smokers: ??<2 % ? Smokers: ??<8 % TOXIC: >20 % Methemoglobin, Venous 0.9 0.0 - 1.5 % 03/21/2022 12:00 PM EDT [facility] Reduced hemoglobin, Venous 30.1(H) 0.0 - 5.0 % 03/21/2022 12:00 PM EDT [facility] Blood, Venous 03/21/2022 11: 53 AM EDT 03/21/2022 11:58 AM EDT us Ana Mercado MD LAB BLOOD ORDERABLES Final Resu lt Performing Organization Address [facility] Co de Phone Number [facility] [address] * (ABNORMAL) POC Glucose Monitoring Device (03/21/2022 11:46 AM EDT) POC Glucose Monitoring Device 169(H) 70 - 100 mg/dL 03/21/2022 11:47 AM EDT [facility] Blood 03/21/2022 11:4 6 AM EDT 03/21/2022 11:47 AM EDT us Kelsey Carcamo MD POINT OF CARE TEST ORDERA BLES Final Result [facility] [address] * (ABNORMAL) POC Glucose Monitoring Device (03/21/2022 8:39 AM EDT) [facility] POC Glucose Monitoring Device 159(H) 70 - 100 mg/dL 03/21/2022 8:40 AM EDT [facility] Blood 03/21/2022 8:39 AM EDT 03/21/2022 8:39 AM EDT us Kelsey Carcamo MD POINT OF CARE TEST ORDERA BLES Final Result Performing Organization Address [facility]/ZIP Co de Phone Number [facility] [address] [place] [address] * Magnesium (03/21/2022 5:12 AM EDT) [facility] Magnesium 1.9 1.5 - 2.5 mg/dL 03/21/2022 5:53 AM EDT [facility] Plasma 03/21/2022 5:12 AM EDT 03/21/2022 5:21 AM EDT us Dariela Wood MD LAB BLOOD ORDERABLES Final Resu lt Performing Organization Address [facility]/ZIP Co de Phone Number [facility] [address] * (ABNORMAL) CBC (03/21/2022 5:12 AM EDT) [facility] WBC 3.2(L) 3.8 - 10.8 10E3/uL 03/21/2022 5:31 AM EDT [facility] RBC 2.51(L) 4.20 - 5.80 10E6/uL 03/21/2022 5:31 AM EDT [facility] Hemoglobin 8.5(L) 13.2 - 17.1 g/dL 03/21/2022 5:31 AM EDT [facility] Hematocrit 25.5(L) 38.5 - 50.0 % 03/21/2022 5:31 AM EDT [facility] MCV 101.4(H) 80.0 - 100.0 fL 03/21/2022 5:31 AM EDT [facility] MCH 33.9(H) 27.0 - 33.0 pg 03/21/2022 5:31 AM EDT [facility] MCHC 33.4 32.0 - 36.0 g/dL 03/21/2022 5:31 AM EDT [facility] RDW 14.3 11.0 - 15.0 % 03/21/2022 5:31 AM EDT [facility] Platelets 161 140 - 400 10E3/uL 03/21/2022 5:31 AM EDT [facility] MPV 7.1(L) 7.5 - 11.5 fL 03/21/2022 5:31 AM EDT [facility] Whole Blood 03/21/2022 5:12 AM EDT 03/21/2022 5:21 AM EDT us Dariela Wood MD LAB BLOOD ORDERABLES Final Resu lt Performing Organization Address City/State/[facility] Co de Phone Number [facility] [address] * (ABNORMAL) Renal Function Panel w/EGFR (03/21/2022 5:12 AM EDT) Sodium 134 133 - 146 mmol/L 03/21/2022 5:53 AM EDT [facility] Potassium 5.5(H) 3.5 - 5.3 mmol/L 03/21/2022 5:53 AM EDT [facility] Chloride 100 98 - 110 mmol/L 03/21/2022 5:53 AM EDT [facility] CO2 23 21 - 33 mmol/L 03/21/2022 5:53 AM EDT [facility] Anion Gap 11 3 - 16 mmol/L 03/21/2022 5:53 AM EDT [facility] BUN 45(H) 7 - 25 mg/dL 03/21/2022 5:53 AM EDT [facility] Creatinine 8.16(H) 0.60 - 1.30 mg/dL 03/21/2022 5:53 AM EDT [facility] Glucose 108(H) 70 - 100 mg/dL 03/21/2022 5:53 AM EDT [facility] Calcium 8.5(L) 8.6 - 10.3 mg/dL 03/21/2022 5:53 AM EDT [facility] Phosphorus 5.3(H) 2.1 - 4.7 mg/dL 03/21/2022 5:53 AM EDT [facility] Albumin 4.0 3.5 - 5.7 g/dL 03/21/2022 5:53 AM EDT [facility] Osmolality, Calculated 290 278 - 305 mOsm/kg 03/21/2022 5:53 AM EDT [facility] EGFR 7 03/21/2022 5:53 AM EDT [facility] Comment:As of 2021, the estimated [...] Disease. Am J Kidney Dis. 2020. Plasma 03/21/2022 5:12 AM EDT 03/21/2022 5:21 AM EDT us Dariela Wood MD LAB BLOOD ORDERABLES Final Resu lt [facility] [address] * (ABNORMAL) Hemoglobin, Blood Gas (03/20/2022 9:59 PM EDT) Hgb, blood gas 9.0(L) 14.0 - 18.0 g/dL 03/20/2022 10:08 PM EDT [facility] Blood, Arterial 03/20/2022 9 :59 PM EDT 03/20/2022 10:07 PM EDT Ana Mercado MD LAB BLOOD ORDERABLES Final Resu lt Performing Organization Address [facility] Co de Phone Number [facility] [address] * (ABNORMAL) Venous O2 SAT, Measured (03/20/2022 9:59 PM EDT) %HBO2, Venous 59.3 40.0 - 70.0 % 03/20/2022 10:08 PM EDT [facility] Carboxyhemoglo bin, Venous 1.7 0.0 - 2.0 % 03/20/2022 10:08 PM EDT [facility] Comment: CARBOXYHEMOGLOBIN (CO) REFERENCE RANGES: Non-Smokers: ??<2 % ? Smokers: ??<8 % TOXIC: >20 % Methemoglobin, Venous 0.7 0.0 - 1.5 % 03/20/2022 10:08 PM EDT [facility] Reduced hemoglobin, Venous 38.3(H) 0.0 - 5.0 % 03/20/2022 10:08 PM EDT [facility] Blood, Venous 03/20/2022 9:5 9 PM EDT 03/20/2022 10:06 PM EDT Ana Mercado MD LAB BLOOD ORDERABLES Final Resu lt Performing Organization Address [facility] Co de Phone Number [facility] [address] * RACHAEL RHYTHM STRIP - SCAN (03/20/2022 6:29 PM EDT) Scanning Uchhim SCAN DOCS - NO RESULTS Final Res ult * (ABNORMAL) Hemoglobin, Blood Gas (03/20/2022 5:28 PM EDT) Hgb, blood gas 9.1(L) 14.0 - 18.0 g/dL 03/20/2022 5:32 PM EDT [facility] Blood, Venous 03/20/2022 5:2 8 PM EDT 03/20/2022 5:31 PM EDT Result [facility] Ana Mercado MD LAB BLOOD ORDERABLES Final Resu lt Performing Organization Address [facility] Co de Phone Number [facility] [address] * (ABNORMAL) Venous O2 SAT, Measured (03/20/2022 5:28 PM EDT) %HBO2, Venous 62.9 40.0 - 70.0 % 03/20/2022 5:32 PM EDT [facility] Carboxyhemoglo bin, Venous 1.5 0.0 - 2.0 % 03/20/2022 5:32 PM EDT [facility] Comment: CARBOXYHEMOGLOBIN (CO) REFERENCE RANGES: Non-Smokers: ??<2 % ? Smokers: ??<8 % TOXIC: >20 % Methemoglobin, Venous 1.1 0.0 - 1.5 % 03/20/2022 5:32 PM EDT [facility] Reduced hemoglobin, Venous 34.5(H) 0.0 - 5.0 % 03/20/2022 5:32 PM EDT [facility] Blood, Venous 03/20/2022 5:2 8 PM EDT 03/20/2022 5:31 PM EDT Ana Mercado MD LAB BLOOD ORDERABLES Final Resu lt [facility] [address] * (ABNORMAL) POC Glucose Monitoring Device (03/20/2022 5:21 PM EDT) POC Glucose Monitoring Device 124(H) 70 - 100 mg/dL 03/20/2022 5:22 PM EDT [facility] Blood 03/20/2022 5:21 PM EDT 03/20/2022 5:22 PM EDT Kelsey Carcamo MD POINT OF CARE TEST ORDERA BLES Final Result Performing Organization Address [facility] de Phone Number [facility] [address] [place] [address] * (ABNORMAL) POC Glucose Monitoring Device (03/20/2022 11:37 AM EDT) POC Glucose Monitoring Device 165(H) 70 - 100 mg/dL 03/20/2022 11:38 AM EDT [facility] Blood 03/20/2022 11:3 7 AM EDT 03/20/2022 11:38 AM EDT Kelsey Carcamo MD POINT OF CARE TEST ORDERA BLES Final Result Performing Organization Address [facility] Phone Number [facility] [address] [place] [address] * (ABNORMAL) Cyclosporine level (03/20/2022 9:28 AM EDT) Cyclosporine, LC/MS 42.2(L) 100.0 - 350.0 ng/mL 03/20/2022 2:47 PM EDT [facility] Comment:Performed via liquid chromatography tandem mass spectrometry. Detection limit: 20 ng/mL. Individual target concentrations may vary due to target organ and time after transplant. This test has been developed and its performance characteristics determined by [facility] which is certified under the Clinical Laboratory Improvement Amendment of 1988 (CLIA-88) to perform high complexity testing. The test has not been cleared or approved by the US Food and Drug Administration (FDA). The FDA has determined that such clearance is not necessary. The test should be used for clinical purposes and is not regarded as investigational. Whole Blood 03/20/2022 9:28 AM EDT 03/20/2022 9:32 AM EDT Dariela Wood MD LAB BLOOD ORDERABLES Final Resu lt Performing Organization Address [facility] Co de Phone Number [facility] [address] [place], [place] [address] * (ABNORMAL) POC Glucose Monitoring Device (03/20/2022 7:43 AM EDT) POC Glucose Monitoring Device 132(H) 70 - 100 mg/dL 03/20/2022 7:44 AM EDT [facility] Blood 03/20/2022 7:43 AM EDT 03/20/2022 7:44 AM EDT us Kelsey Carcamo MD POINT OF CARE TEST ORDERA BLES Final Result [facility] [address] [place], [place] [id number] [place] [address] * X-ray Portable Chest (03/20/2022 7:05 AM EDT) Anatomical Region Laterality Modality Chest Radiographic Sobia ging 03/20/2022 6:27 AM EDT Impressions 03/20/2022 7:37 AM EDT IMPRESSION: No acute cardiopulmonary abnormality. Approved by Adam Taveras MD on 03/20/2022 7:20 AM EDT I have personally reviewed the images and I agree with this report. Report Verified by: Edgar Arellano MD at 03/20/2022 7:37 AM EDT Narrative 03/20/2022 7:37 AM EDT EXAM: XR PORTABLE CHEST INDICATION: Strawberry-Viviana catheter placement TECHNIQUE: 1 view of the chest. COMPARISON: 20 hours prior FINDINGS: Medical Devices: Right IJ PA catheter tip overlies the left pulmonary artery, unchanged. Heart and Mediastinum: Stable cardiomegaly. Lungs and Pleura: Hazy perihilar and basilar opacities. No sizable pleural effusion. No visualized pneumothorax. Bones and soft tissues: No acute abnormalities. Procedure Note Edgar Arellano MD - 03/20/2022 EXAM: XR PORTABLE CHEST INDICATION: Strawberry-Viviana catheter placement TECHNIQUE: 1 view of the chest. COMPARISON: 20 hours prior FINDINGS: Medical Devices: Right IJ PA catheter tip overlies the left pulmonaryartery, unchanged. Heart and Mediastinum: Stable cardiomegaly. Lungs and Pleura: Hazy perihilar and basilar opacities. No sizable pleuraleffusion. No visualized pneumothorax. Bones and soft tissues: No acute abnormalities. IMPRESSION: No acute cardiopulmonary abnormality. Approved by Adam Taveras MD on 03/20/2022 7:20 AM EDT I have personally reviewed the images and I agree with this report. Report Verified by: Edgar Arellano MD at 03/20/2022 7:37 AM EDT Ana Mercado MD IMG DIAGNOSTIC IMAGING ORDERABL ES Final Result * (ABNORMAL) Venous O2 SAT, Measured (03/20/2022 3:58 AM EDT) %HBO2, Venous 73.2(H) 40.0 - 70.0 % 03/20/2022 4:17 AM EDT [facility] Carboxyhemoglo bin, Venous 1.8 % 03/20/2022 4:17 AM EDT [facility] Comment: CARBOXYHEMOGLOBIN (CO) REFERENCE RANGES: Non-Smokers: ??<2 % ? Smokers: ??<8 % TOXIC: >20 % Methemoglobin, Venous 0.8 0.0 - 1.5 % 03/20/2022 4:17 AM EDT [facility] Reduced hemoglobin, Venous 24.2(H) 0.0 - 5.0 % 03/20/2022 4:17 AM EDT [facility] Blood, Venous 03/20/2022 3:5 8 AM EDT 03/20/2022 4:14 AM EDT Ana Mercado MD LAB BLOOD ORDERABLES Final Resu lt [facility] [address] [place], [place] [address] * (ABNORMAL) Hemoglobin, Blood Gas (03/20/2022 3:58 AM EDT) Hgb, blood gas 8.9(L) 14.0 - 18.0 g/dL 03/20/2022 4:17 AM EDT [facility] Blood, Arterial 03/20/2022 3 :58 AM EDT 03/20/2022 4:14 AM EDT Ana Mercado MD LAB BLOOD ORDERABLES Final Resu lt Performing Organization Address City/[facility]/ZIP Co de Phone Number [facility] [address] * Magnesium (03/20/2022 3:58 AM EDT) Magnesium 2.0 1.5 - 2.5 mg/dL 03/20/2022 4:41 AM EDT [facility] Plasma 03/20/2022 3:58 AM EDT 03/20/2022 4:14 AM EDT Dariela Wood MD LAB BLOOD ORDERABLES Final Resu lt Performing Organization Address [facility]/ZIP Co de Phone Number [facility] [address] * (ABNORMAL) CBC (03/20/2022 3:58 AM EDT) WBC 3.4(L) 3.8 - 10.8 10E3/uL 03/20/2022 4:23 AM EDT [facility] RBC 2.52(L) 4.20 - 5.80 10E6/uL 03/20/2022 4:23 AM EDT [facility] Hemoglobin 8.8(L) 13.2 - 17.1 g/dL 03/20/2022 4:23 AM EDT [facility] Hematocrit 25.8(L) 38.5 - 50.0 % 03/20/2022 4:23 AM EDT [facility] MCV 102.2(H) 80.0 - 100.0 fL 03/20/2022 4:23 AM EDT [facility] MCH 34.8(H) 27.0 - 33.0 pg 03/20/2022 4:23 AM EDT [facility] MCHC 34.0 32.0 - 36.0 g/dL 03/20/2022 4:23 AM EDT [facility] RDW 14.3 11.0 - 15.0 % 03/20/2022 4:23 AM EDT [facility] Platelets 174 140 - 400 10E3/uL 03/20/2022 4:23 AM EDT [facility] MPV 6.8(L) 7.5 - 11.5 fL 03/20/2022 4:23 AM EDT [facility] Whole Blood 03/20/2022 3:58 AM EDT 03/20/2022 4:14 AM EDT us Dariela Wood MD LAB BLOOD ORDERABLES Final Resu lt [facility] [address] * (ABNORMAL) Renal Function Panel w/EGFR (03/20/2022 3:58 AM EDT) Sodium 138 133 - 146 mmol/L 03/20/2022 4:41 AM EDT [facility] Potassium 5.0 3.5 - 5.3 mmol/L 03/20/2022 4:41 AM EDT [facility] Chloride 102 98 - 110 mmol/L 03/20/2022 4:41 AM EDT [facility] CO2 28 21 - 33 mmol/L 03/20/2022 4:41 AM EDT [facility] Anion Gap 8 3 - 16 mmol/L 03/20/2022 4:41 AM EDT [facility] BUN 29(H) 7 - 25 mg/dL 03/20/2022 4:41 AM EDT [facility] Creatinine 6.56(H) 0.60 - 1.30 mg/dL 03/20/2022 4:41 AM EDT [facility] Glucose 129(H) 70 - 100 mg/dL 03/20/2022 4:41 AM EDT [facility] Calcium 8.4(L) 8.6 - 10.3 mg/dL 03/20/2022 4:41 AM EDT [facility] Phosphorus 5.1(H) 2.1 - 4.7 mg/dL 03/20/2022 4:41 AM EDT [facility] Albumin 4.1 3.5 - 5.7 g/dL 03/20/2022 4:41 AM EDT [facility] Osmolality, Calculated 294 278 - 305 mOsm/kg 03/20/2022 4:41 AM EDT [facility] EGFR 10 03/20/2022 4:41 AM EDT [facility] Comment:As of 2021, the estimated [...] Disease. Am J Kidney Dis. 2020. Plasma 03/20/2022 3:58 AM EDT 03/20/2022 4:14 AM EDT us Dariela Wood MD LAB BLOOD ORDERABLES Final Resu lt Performing Organization Address City/[facility]/ZIP Co de Phone Number [facility] [address] [place] [address] * (ABNORMAL) POC Glucose Monitoring Device (03/19/2022 6:36 PM EDT) POC Glucose Monitoring Device 158(H) 70 - 100 mg/dL 03/19/2022 6:40 PM EDT [facility] Blood 03/19/2022 6:36 PM EDT 03/19/2022 6:39 PM EDT us Kelsey Carcamo MD POINT OF CARE TEST ORDERA BLES Final Result Performing Organization Address [facility] Co de Phone Number [facility] [address] [place] [address] * (ABNORMAL) Hemoglobin, Blood Gas (03/19/2022 5:48 PM EDT) [facility] Hgb, blood gas 8.9(L) 14.0 - 18.0 g/dL 03/19/2022 5:56 PM EDT [facility] Blood, Venous 03/19/2022 5:4 8 PM EDT 03/19/2022 5:54 PM EDT Ana Mercado MD LAB BLOOD ORDERABLES Final Resu lt Performing Organization Address City/[facility] Co de Phone Number [facility] [address] * (ABNORMAL) Venous O2 SAT, Measured (03/19/2022 5:48 PM EDT) [facility] %HBO2, Venous 73.9(H) 40.0 - 70.0 % 03/19/2022 5:55 PM EDT [facility] Carboxyhemoglo bin, Venous 1.8 % 03/19/2022 5:55 PM EDT [facility] Comment: CARBOXYHEMOGLOBIN (CO) REFERENCE RANGES: Non-Smokers: ??<2 % ? Smokers: ??<8 % TOXIC: >20 % Methemoglobin, Venous 0.6 0.0 - 1.5 % 03/19/2022 5:55 PM EDT [facility] Reduced hemoglobin, Venous 23.7(H) 0.0 - 5.0 % 03/19/2022 5:55 PM EDT [facility] Blood, Venous 03/19/2022 5:4 8 PM EDT 03/19/2022 5:54 PM EDT Ana Mercado MD LAB BLOOD ORDERABLES Final Resu lt Performing Organization Address City/[facility] Co de Phone Number [facility] [address] * (ABNORMAL) POC Glucose Monitoring Device (03/19/2022 11:50 AM EDT) [facility] POC Glucose Monitoring Device 137(H) 70 - 100 mg/dL 03/19/2022 11:53 AM EDT [facility] Blood 03/19/2022 11:5 0 AM EDT 03/19/2022 11:52 AM EDT us Kelsey Carcamo MD POINT OF CARE TEST ORDERA BLES Final Result [facility] [address] [place] [address], [facility] * X-ray Portable Chest (03/19/2022 11:15 AM EDT) Anatomical Region Laterality Modality Chest Radiographic Sobia ging 03/19/2022 10:0 4 AM EDT Impressions 03/19/2022 5:05 PM EDT IMPRESSION: No significant interval change. Approved by Sylvain Mcgowan DO on 03/19/2022 4:46 PM EDT I have personally reviewed the images and I agree with this report. Report Verified by: Edgar Arellano MD at 03/19/2022 5:05 PM EDT Narrative 03/19/2022 5:05 PM EDT EXAM: XR PORTABLE CHEST INDICATION: Cough TECHNIQUE: 1 view of the chest. COMPARISON: Chest radiograph 4 hours prior. FINDINGS: Medical Devices: Unchanged appearance of right IJ approach Strawberry-Viviana catheter. Heart and Mediastinum: Enlarged, but stable. Lungs and Pleura: Hypoexpanded lungs. Unchanged findings of interstitial pulmonary edema. No pleural effusions or evidence for pneumothorax. Bones and Soft tissues: Unchanged. Procedure Note Edgar Arellano MD - 03/19/2022 EXAM: XR PORTABLE CHEST INDICATION: Cough TECHNIQUE: 1 view of the chest. COMPARISON: Chest radiograph 4 hours prior. FINDINGS: Medical Devices: Unchanged appearance of right IJ approach Strawberry-Ganzcatheter. Heart and Mediastinum: Enlarged, but stable. Lungs and Pleura: Hypoexpanded lungs. Unchanged findings of interstitialpulmonary edema. No pleural effusions or evidence for pneumothorax. Bones and Soft tissues: Unchanged. IMPRESSION: No significant interval change. Approved by Sylvain Mcgowan DO on 03/19/2022 4:46 PM EDT I have personally reviewed the images and I agree with this report. Report Verified by: Edgar Arellano MD at 03/19/2022 5:05 PM EDT us Dariela Wood MD IMG DIAGNOSTIC IMAGING ORDERABL ES Final Result * RACHAEL RHYTHM STRIP - SCAN (03/19/2022 9:48 AM EDT) us Scanning Uchhim SCAN DOCS - NO RESULTS Final Res ult * (ABNORMAL) POC Glucose Monitoring Device (03/19/2022 8:02 AM EDT) POC Glucose Monitoring Device 213(H) 70 - 100 mg/dL 03/19/2022 8:12 AM EDT [facility] Blood 03/19/2022 8:02 AM EDT 03/19/2022 8:12 AM EDT us Kelsey Carcamo MD POINT OF CARE TEST ORDERA BLES Final Result [facility] [address] * X-ray Portable Chest (03/19/2022 6:26 AM EDT) Anatomical Region Laterality Modality Chest Radiographic Sobia ging 03/19/2022 6:21 AM EDT Impressions 03/19/2022 7:44 AM EDT IMPRESSION: 1. ??Strawberry-Viviana catheter tip in the left lower lobe pulmonary artery.. Approved by Humble Mccracken on 03/19/2022 7:18 AM EDT I have personally reviewed the images and I agree with this report. Report Verified by: Yuli Etienne MD at 03/19/2022 7:44 AM EDT Narrative 03/19/2022 7:44 AM EDT EXAM: XR PORTABLE CHEST INDICATION: Other - Must Specify in Comments TECHNIQUE: 1 view of the chest. COMPARISON: Multiple priors FINDINGS: Medical Devices: Right IJ approach Strawberry-Viviana catheter tip projects over the left lower lobe pulmonary artery. Heart and Mediastinum: Unchanged cardiomegaly. Lungs and Pleura: Low lung volumes. Unchanged findings of interstitial pulmonary edema. No right pleural effusion. No visible pneumothorax. Bones and Soft tissues: Unchanged. Procedure Note Yuli Etienne MD - 03/19/2022 EXAM: XR PORTABLE CHEST INDICATION: Other - Must Specify in Comments TECHNIQUE: 1 view of the chest. COMPARISON: Multiple priors FINDINGS: Medical Devices: Right IJ approach Strawberry-Viviana catheter tip projects overthe left lower lobe pulmonary artery. Heart and Mediastinum: Unchanged cardiomegaly. Lungs and Pleura: Low lung volumes. Unchanged findings of interstitialpulmonary edema. No right pleural effusion. No visible pneumothorax. Bones and Soft tissues: Unchanged. IMPRESSION: 1. Strawberry-Viviana catheter tip in the left lower lobe pulmonary artery.. Approved by Humble Mccracken on 03/19/2022 7:18 AM EDT I have personally reviewed the images and I agree with this report. Report Verified by: Yuli Etienne MD at 03/19/2022 7:44 AM EDT Ana Mercado MD IMG DIAGNOSTIC IMAGING ORDERABL ES Final Result * #1 Blood culture-Peripheral site 1 (03/19/2022 5:30 AM EDT) Culture Result No Growth After 5 Days [facility] Blood BLOOD SPECIMEN / Unknown 03/19/2022 5:30 AM EDT 03/19/2022 6:18 AM EDT Narrative [facility] - 03/24/2022 7:50 AM EDT Three different sites Suboptimal volume of blood received. Interpret results with caution. Interpret results critically. Specimen was collected in bottles us Neyda Espinoza MD MICROBIOLOGY - GENERAL ORDERAB LES Final Result [facility] [address] [place] [address] * #2 Blood culture-Peripheral site 2 (03/19/2022 5:30 AM EDT) Culture Result No Growth After 5 Days [facility] Blood BLOOD SPECIMEN / Unknown 03/19/2022 5:30 AM EDT 03/19/2022 6:17 AM EDT Narrative [facility] - 03/24/2022 6:21 AM EDT Suboptimal volume of blood received. Interpret results with caution. Neyda Espinoza MD MICROBIOLOGY - GENERAL ORDERAB LES Final Result Performing Organization Address [facility] Co de Phone Number [facility] [address] * (ABNORMAL) Venous O2 SAT, Measured (03/19/2022 3:46 AM EDT) %HBO2, Venous 66.1 40.0 - 70.0 % 03/19/2022 3:57 AM EDT [facility] Carboxyhemoglo bin, Venous 1.9 0.0 - 2.0 % 03/19/2022 3:57 AM EDT [facility] Comment: CARBOXYHEMOGLOBIN (CO) REFERENCE RANGES: Non-Smokers: ??<2 % ? Smokers: ??<8 % TOXIC: >20 % Methemoglobin, Venous 0.7 0.0 - 1.5 % 03/19/2022 3:57 AM EDT [facility] Reduced hemoglobin, Venous 31.3(H) 0.0 - 5.0 % 03/19/2022 3:57 AM EDT [facility] Blood, Venous 03/19/2022 3:4 6 AM EDT 03/19/2022 3:55 AM EDT Ana Mercado MD LAB BLOOD ORDERABLES Final Resu lt Performing Organization Address City/[facility] Co de Phone Number [facility] [address] * (ABNORMAL) Hemoglobin, Blood Gas (03/19/2022 3:46 AM EDT) Hgb, blood gas 8.3(L) 14.0 - 18.0 g/dL 03/19/2022 3:56 AM EDT [facility] Blood, Arterial 03/19/2022 3 :46 AM EDT 03/19/2022 3:55 AM EDT Ana Mercado MD LAB BLOOD ORDERABLES Final Resu lt [facility] [address] * Magnesium (03/19/2022 3:46 AM EDT) Magnesium 1.9 1.5 - 2.5 mg/dL 03/19/2022 4:23 AM EDT [facility] Plasma 03/19/2022 3:46 AM EDT 03/19/2022 3:52 AM EDT Dariela Wood MD LAB BLOOD ORDERABLES Final Resu lt Performing Organization Address [facility] Co de Phone Number [facility] [address] * (ABNORMAL) CBC (03/19/2022 3:46 AM EDT) WBC 3.2(L) 3.8 - 10.8 10E3/uL 03/19/2022 4:04 AM EDT [facility] RBC 2.44(L) 4.20 - 5.80 10E6/uL 03/19/2022 4:04 AM EDT [facility] Hemoglobin 8.2(L) 13.2 - 17.1 g/dL 03/19/2022 4:04 AM EDT [facility] Hematocrit 24.6(L) 38.5 - 50.0 % 03/19/2022 4:04 AM EDT [facility] MCV 100.8(H) 80.0 - 100.0 fL 03/19/2022 4:04 AM EDT [facility] MCH 33.6(H) 27.0 - 33.0 pg 03/19/2022 4:04 AM EDT [facility] MCHC 33.4 32.0 - 36.0 g/dL 03/19/2022 4:04 AM EDT [facility] RDW 14.1 11.0 - 15.0 % 03/19/2022 4:04 AM EDT [facility] Platelets 166 140 - 400 10E3/uL 03/19/2022 4:04 AM EDT [facility] [facility] MPV 7.0(L) 7.5 - 11.5 fL 03/19/2022 4:04 AM EDT [facility] Whole Blood 03/19/2022 3:46 AM EDT 03/19/2022 3:52 AM EDT us Dariela oWod MD LAB BLOOD ORDERABLES Final Resu lt [facility] [address] * (ABNORMAL) Renal Function Panel w/EGFR (03/19/2022 3:46 AM EDT) Sodium 135 133 - 146 mmol/L 03/19/2022 4:23 AM EDT [facility] Potassium 4.3 3.5 - 5.3 mmol/L 03/19/2022 4:23 AM EDT [facility] Chloride 96(L) 98 - 110 mmol/L 03/19/2022 4:23 AM EDT [facility] CO2 27 21 - 33 mmol/L 03/19/2022 4:23 AM EDT [facility] Anion Gap 12 3 - 16 mmol/L 03/19/2022 4:23 AM EDT [facility] BUN 37(H) 7 - 25 mg/dL 03/19/2022 4:23 AM EDT [facility] Creatinine 7.56(H) 0.60 - 1.30 mg/dL 03/19/2022 4:23 AM EDT [facility] Glucose 180(H) 70 - 100 mg/dL 03/19/2022 4:23 AM EDT [facility] Calcium 8.0(L) 8.6 - 10.3 mg/dL 03/19/2022 4:23 AM EDT [facility] Phosphorus 5.7(H) 2.1 - 4.7 mg/dL 03/19/2022 4:23 AM EDT [facility] Albumin 4.0 3.5 - 5.7 g/dL 03/19/2022 4:23 AM EDT [facility] Osmolality, Calculated 293 278 - 305 mOsm/kg 03/19/2022 4:23 AM EDT [facility] EGFR 8 03/19/2022 4:23 AM EDT [facility] Comment:As of 2021, the estimated [...] Disease. Am J Kidney Dis. 2020. Plasma 03/19/2022 3:46 AM EDT 03/19/2022 3:52 AM EDT us Dariela Wood MD LAB BLOOD ORDERABLES Final Resu lt [facility] [address] * (ABNORMAL) Differential (03/19/2022 3:46 AM EDT) Neutrophils Relative 66.8 40.0 - 80.0 % 03/19/2022 4:04 AM EDT [facility] Lymphocytes Relative 21.1 15.0 - 45.0 % 03/19/2022 4:04 AM EDT [facility] Monocytes Relative 9.4 0.0 - 12.0 % 03/19/2022 4:04 AM EDT [facility] Eosinophils Relative 2.4 0.0 - 8.0 % 03/19/2022 4:04 AM EDT [facility] Basophils Relative 0.3 0.0 - 1.0 % 03/19/2022 4:04 AM EDT [facility] nRBC 0 0 - 0 /100 WBC 03/19/2022 4:04 AM EDT [facility] Neutrophils Absolute 2,138 1,500 - 7,800 /uL 03/19/2022 4:04 AM EDT [facility] Lymphocytes Absolute 675(L) 850 - 3,900 /uL 03/19/2022 4:04 AM EDT [facility] Monocytes Absolute 301 200 - 950 /uL 03/19/2022 4:04 AM EDT [facility] Eosinophils Absolute 77 15 - 500 /uL 03/19/2022 4:04 AM EDT [facility] Basophils Absolute 10 0 - 200 /uL 03/19/2022 4:04 AM EDT [facility] Whole Blood 03/19/2022 3:46 AM EDT 03/19/2022 3:52 AM EDT us Nadya Ramirez MD LAB BLOOD ORDERABLES Final Resul t Performing Organization Address City/State/[facility] Co de Phone Number [facility] [address] * Insert Arterial Line (03/18/2022 8:54 PM EDT) Narrative Ana Mercado MD - 03/18/2022 8:54 PM EDT Dariela Wood MD ? 03/18/2022 ??8:55 PM Insert Arterial Line Date/Time: 03/18/2022 8:54 PM Performed by: Dariela Wood MD Authorized by: Dariela Wood MD Consent: ??Consent obtained: ??Written ??Consent given by: ??Patient ??Risks, benefits, and alternatives were discussed: yes ?? [place] protocol: ??Patient identity confirmed: ??Verbally with patient and arm band Indications: ??Indications: hemodynamic monitoring ?? Pre-procedure details: ??Skin preparation: ??Chlorhexidine Sedation: ??Sedation type: ??None Anesthesia: ??Anesthesia method: ??Local infiltration ??Local anesthetic: ??Lidocaine 1% w/o epi Procedure details: ??Location: ??R radial ??Michael's test performed: yes ?Number of attempts: ??2 ??Transducer: waveform confirmed ?? Post-procedure details: ??Post-procedure: ??Biopatch applied, secured with tape, sterile dressing applied and sutured ??Procedure completion: ??Tolerated well, no immediate complications Dariela Wood MD IV THERAPY ORDERABLES Final Res ult * (ABNORMAL) POC Glucose Monitoring Device (03/18/2022 7:24 PM EDT) POC Glucose Monitoring Device 183(H) 70 - 100 mg/dL 03/18/2022 7:24 PM EDT [facility] Blood 03/18/2022 7:24 PM EDT 03/18/2022 7:24 PM EDT Kelsey Carcamo MD POINT OF CARE TEST ORDERA BLES Final Result Performing Organization Address City/[facility]/ZIP Co de Phone Number [address] * (ABNORMAL) POC Glucose Monitoring Device (03/18/2022 1:38 PM EDT) POC Glucose Monitoring Device 154(H) 70 - 100 mg/dL 03/18/2022 1:39 PM EDT [facility] Blood 03/18/2022 1:38 PM EDT 03/18/2022 1:39 PM EDT Kelsey Carcamo MD POINT OF CARE TEST ORDERA BLES Final Result Performing Organization Address [facility] Co de Phone Number [address] * X-ray Portable Chest (03/18/2022 12:48 PM EDT) Anatomical Region Laterality Modality Chest Radiographic Sobia ging 03/18/2022 11:3 8 AM EDT Impressions 03/18/2022 12:58 PM EDT IMPRESSION: Right IJ pulmonary artery catheter tip overlies the right lower lobe pulmonary artery Report Verified by: Marcy Villagran MD at 03/18/2022 12:58 PM EDT Narrative 03/18/2022 12:58 PM EDT EXAM: XR PORTABLE CHEST INDICATION: Encounter for adjustment and management of VAD, ??Strawberry cath placement TECHNIQUE: 1 view of the chest. COMPARISON: 03/17/2022. FINDINGS: Mildly limited by patient rotation Medical Devices: Right IJ pulmonary artery catheter tip overlies the right lower lobe pulmonary artery. Heart and Mediastinum: Enlarged, but stable. Lungs and Pleura: Vascular indistinctness with perihilar and bibasilar predominant parenchymal opacities. No pleural effusions or evidence for pneumothorax. Bones and soft tissues: No acute abnormalities. Procedure Note Marcy Villagran MD - 03/18/2022 EXAM: XR PORTABLE CHEST INDICATION: Encounter for adjustment and management of VAD, Strawberry cathplacement TECHNIQUE: 1 view of the chest. COMPARISON: 03/17/2022. FINDINGS: Mildly limited by patient rotation Medical Devices: Right IJ pulmonary artery catheter tip overlies the rightlower lobe pulmonary artery. Heart and Mediastinum: Enlarged, but stable. Lungs and Pleura: Vascular indistinctness with perihilar and bibasilarpredominant parenchymal opacities. No pleural effusions or evidence forpneumothorax. Bones and soft tissues: No acute abnormalities. IMPRESSION: Right IJ pulmonary artery catheter tip overlies the right lower lobepulmonary artery Report Verified by: Marcy Villagran MD at 03/18/2022 12:58 PM EDT Sherly Hawkins MD IMG DIAGNOSTIC IMAGING ORDERABL ES Final Result * (ABNORMAL) Hemoglobin, Blood Gas (03/18/2022 9:32 AM EDT) Hgb, blood gas 8.9(L) 14.0 - 18.0 g/dL 03/18/2022 9:37 AM EDT [facility] Blood, Arterial 03/18/2022 9 :32 AM EDT 03/18/2022 9:36 AM EDT Ana Mercado MD LAB BLOOD ORDERABLES Final Resu lt [facility] [address] [place] [address], [facility] * (ABNORMAL) VENOUS O2 SAT, MEASURED (03/18/2022 9:32 AM EDT) %HBO2, Venous 63.4 40.0 - 70.0 % 03/18/2022 9:37 AM EDT [facility] Carboxyhemoglo bin, Venous 2.1(H) 0.0 - 2.0 % 03/18/2022 9:37 AM EDT [facility] Comment: CARBOXYHEMOGLOBIN (CO) REFERENCE RANGES: Non-Smokers: ??<2 % ? Smokers: ??<8 % TOXIC: >20 % Methemoglobin, Venous 0.9 0.0 - 1.5 % 03/18/2022 9:37 AM EDT [facility] Reduced hemoglobin, Venous 33.6(H) 0.0 - 5.0 % 03/18/2022 9:37 AM EDT [facility] Blood, Venous 03/18/2022 9:3 2 AM EDT 03/18/2022 9:36 AM EDT us Ana Mercado MD LAB BLOOD ORDERABLES Final Resu lt Performing Organization Address [facility]/State/[facility] Co de Phone Number [facility] [address] * RIGHT HEART CATH (03/18/2022 9:04 AM EDT) 03/18/2022 8:23 AM EDT Narrative [facility] - 03/19/2022 7:58 AM EDT *[facility]* Cardiac Consumer Attorney [address] [id number] CATHETERIZATION LAB STUDY Patient: ? Leoncio Rollins ?Age: ?47 ?Study Date: ? 03/18/2022 ? Gender: M ? Study Time: ? 08:23:04 AM : ? 1975 ? HT/WT: ??175.3cm / 135.9kg ? Performing Physician: Oliver Reed MD Ordering Physician: ?? Wilmer Hernandez MD Referring Physician: ??Mandi Mora Fellow: ? MD Sylvain Santana MD Procedures performed: - Right heart catheterization. IMPRESSIONS: 1. Markedly elevated biventricular pressures. 2. Severe pulmonary hypertension. 3. Preserved cardiac index and output. 4. Strawberry Sutured in at 57cm. RECOMMENDATIONS: 1. Results discussed with cardiology consult team who recommended leave in Strawberry and further ?? optimization under the care of the CVICU team. 2. Standard post procedural CXR. INDICATIONS: ?? Shortness of breath. ??Congestive heart failure. Heart Failure Systolic (I50.20). PROCEDURE IN DETAIL: ?? [...] Right internal jugular vein access. A 4f Agari mini access kit sheath was advanced into the ?? vessel. 5. Sheath exchange. The sheath was exchanged for a [id number] pinnacle sheath. 6. Right heart catheterization. A 7f catheter, swan-viviana td catheter was advanced via the access ?? site into the right atrium, right ventricle, pulmonary artery and wedge position under ?? fluoroscopic guidance. 7. Sedation. The procedure was [...] complications. Hemodynamics: Circulatory function: + + + ----- + !Stage description ?!Condition 1 - Abelino ? !Condition 1 - Thermo ? ! + + + ----- + !O2 uptake, hemoglobin ?!Hgb: 8.33g/dl ?!Hgb: 8.33g/dl ?! + + + ----- + !Cardiac output (Qs) ?!10.8L/min ?!10.1L/min ?! + + + ----- + !Cardiac index ?!4.41L/(min-m^2) ?!4.12L/(min-m^2) ?! + + + ----- + !HR, R-R, stroke volume ?? !73bpm, 148ml ? !72bpm, 140ml ? ! + + + ----- + !RA pressure a/v (m) ?! () ? ! () ? ! + + + ----- + !RV pressure s/d, ed ?! 15 ?! ?! + + + ----- + !PA wedge a/v (m) ? ! (30) ? ! (30) ? ! + + + ----- + !MPA pressure s/d (m) ? !60 (40) ? !60/23 (40) ? ! + + + ----- + !Aortic pressure s/d (m) ??!185/ (122) ? !185 (122) ? ! + + + ----- + !SVR ?!718dyn-sec/cm5 ? !768dyn-sec/cm5 ? ! + + + ----- + !SVRI ? !0736ywh-fog-s^2/cm5 ?!8894tbz-yhz-s^2/cm5 ?! + + + ----- + !PVR ?!74dyn-sec/cm5 ?!79dyn-sec/cm5 ?! + + + ----- + !PVRI ? !463ups-aas-z^2/cm5 ? !724arw-xtk-f^2/cm5 ? ! + + + ----- + !Total systemic resistance!903dyn-sec/cm5, 5539zks-qab-w^2/cm5!966dyn-sec/cm5, 2578tuf-dji-k^2/cm5! + + + ----- + Saturations: + + + !Stage description !Condition 1 -! + + + !Saturation, RA ?!71% ?! + + + !Saturation, PA/MPA!68% ?! + + + !Saturation, aorta !93% ?! + + + SUMMARY: ?? Elevated filling pressures, preserved CO/CI. ATTESTATION: Dr. Oliver Reed was present for the entire procedure. Dr. Gabriel Booth was the initial author of this report. Prepared and electronically signed by Oliver Reed MD [id number] [place] [id number] Final Re sult Performing Organization Address City/[facility]/ZIP Co de Phone Number [facility] * CARDIAC CATH DOCUMENTS SCAN (03/18/2022 8:57 AM EDT) us Scanning Uchhim SCAN DOCS - NO RESULTS Final Res ult * Occupational Exposure Screen Reflex (03/18/2022 8:51 AM EDT) HIV-1/HIV-2 Ab Negative Negative 03/18/2022 10:33 AM EDT [facility] Comment:Results called to an d read back by CHRISTOPHER LAMB RN P24 Antigen Negative Negative 03/18/2022 10:33 AM EDT [facility] Serum 03/18/2022 8:51 AM EDT 03/18/2022 9:50 AM EDT us Ermelinda Caputo MD LAB BLOOD ORDERABLES Final Re sult Performing Organization Address City/[facility]/ZIP Co de Phone Number [facility] [address] * Hepatitis B surface antigen (03/18/2022 8:51 AM EDT) Hep B Surface Ag Nonreactive Nonreactive 03/18/2022 10:51 AM EDT [facility] Comment:Health Department no tified in accordance with reportable infectious disease guidelines. Serum 03/18/2022 8:51 AM EDT 03/18/2022 9:50 AM EDT Narrative [facility] - 03/18/2022 10:51 AM EDT Specimen is considered negative for HBsAg. Ermelinda Caputo MD LAB BLOOD ORDERABLES Final Re sult Performing Organization Address [facility] Co de Phone Number [facility] [address] * Hepatitis C Antibody (03/18/2022 8:51 AM EDT) HCV Ab Nonreactive Nonreactive 03/18/2022 10:55 AM EDT [facility] Comment:Health Department no tified in accordance with reportable infectious disease guidelines. Serum 03/18/2022 8:51 AM EDT 03/18/2022 9:50 AM EDT Narrative [facility] - 03/18/2022 10:55 AM EDT Antibodies to HCV not detected; does not exclude the possibility of exposure to HCV. Ermelinda Caputo MD LAB BLOOD ORDERABLES Final Re sult Performing Organization Address [facility] Co de Phone Number [facility] [address] [place] [address] * (ABNORMAL) POC Oxyhemoglobin (03/18/2022 8:37 AM EDT) POC Oxyhemoglobin 68.2(L) 95 - 98 % 022 8:34 AM EDT [facility] Comment:SEE CATH REPORT FOR COMPREHENSIVE RESULTS Blood, Arterial 03/18/2022 8 :37 AM EDT 03/18/2022 8:34 AM EDT Kelsey Carcamo MD LAB BLOOD ORDERABLES Yoselin l Result Performing Organization Address City/[facility] Co de Phone Number [facility] [address] * (ABNORMAL) POC Total Hemoglobin (03/18/2022 8:37 AM EDT) POC Total Hemoglobin 8.4(L) 14.0 - 18.0 g/dL 03/18/2022 8:34 AM EDT [facility] Comment:SEE CATH REPORT FOR COMPREHENSIVE RESULTS Blood, Arterial 03/18/2022 8 :37 AM EDT 03/18/2022 8:34 AM EDT Kelsey Carcamo MD LAB BLOOD ORDERABLES Yoselin l Result Performing Organization Address [facility] Co de Phone Number [facility] [address] [place] [address] * (ABNORMAL) POC Oxyhemoglobin (03/18/2022 8:33 AM EDT) Pathologist [facility] POC Oxyhemoglobin 70.8(L) 95 - 98 % 022 8:31 AM EDT [facility] Comment:SEE CATH REPORT FOR COMPREHENSIVE RESULTS Blood, Arterial 03/18/2022 8 :33 AM EDT 03/18/2022 8:30 AM EDT Kelsey Carcamo MD LAB BLOOD ORDERABLES Yoselin l Result Performing Organization Address [facility] Co de Phone Number [facility] [address] [place] [address] * (ABNORMAL) POC Total Hemoglobin (03/18/2022 8:33 AM EDT) POC Total Hemoglobin 8.3(L) 14.0 - 18.0 g/dL 03/18/2022 8:31 AM EDT [facility] Comment:SEE CATH REPORT FOR COMPREHENSIVE RESULTS Blood, Arterial 03/18/2022 8 :33 AM EDT 03/18/2022 8:30 AM EDT Kelsey Carcamo MD LAB BLOOD ORDERABLES Yoselin l Result Performing Organization Address City/[facility]/ZIP Co de Phone Number [facility] [address] * #1 Blood culture-Peripheral site 1 (03/18/2022 7:49 AM EDT) Culture Result No Growth After 5 Days [facility] Blood BLOOD SPECIMEN / Unknown 03/18/2022 7:49 AM EDT 03/18/2022 8:17 AM EDT Narrative [facility] - 03/23/2022 8:22 AM EDT Three different sites Suboptimal volume of blood received. Interpret results with caution. us Neyda Espinoza MD MICROBIOLOGY - GENERAL ORDERAB LES Final Result Performing Organization Address [facility]/ZIP Co de Phone Number [facility] [address] * (ABNORMAL) CBC (03/18/2022 4:58 AM EDT) WBC 3.1(L) 3.8 - 10.8 10E3/uL 03/18/2022 7:06 AM EDT [facility] RBC 2.45(L) 4.20 - 5.80 10E6/uL 03/18/2022 7:06 AM EDT [facility] Hemoglobin 8.4(L) 13.2 - 17.1 g/dL 03/18/2022 7:06 AM EDT [facility] Hematocrit 24.9(L) 38.5 - 50.0 % 03/18/2022 7:06 AM EDT [facility] MCV 101.5(H) 80.0 - 100.0 fL 03/18/2022 7:06 AM EDT [facility] MCH 34.0(H) 27.0 - 33.0 pg 03/18/2022 7:06 AM EDT [facility] MCHC 33.5 32.0 - 36.0 g/dL 03/18/2022 7:06 AM EDT [facility] RDW 14.0 11.0 - 15.0 % 03/18/2022 7:06 AM EDT [facility] Platelets 154 140 - 400 10E3/uL 03/18/2022 7:06 AM EDT [facility] MPV 7.4(L) 7.5 - 11.5 fL 03/18/2022 7:06 AM EDT [facility] Whole Blood 03/18/2022 4:58 AM EDT 03/18/2022 6:56 AM EDT us Neyda Espinoza MD LAB BLOOD ORDERABLES Final Res ult [facility] [address] * (ABNORMAL) Renal Function Panel w/EGFR (03/18/2022 4:58 AM EDT) Sodium 138 133 - 146 mmol/L 03/18/2022 7:33 AM EDT [facility] Potassium 4.4 3.5 - 5.3 mmol/L 03/18/2022 7:33 AM EDT [facility] Chloride 94(L) 98 - 110 mmol/L 03/18/2022 7:33 AM EDT [facility] CO2 29 21 - 33 mmol/L 03/18/2022 7:33 AM EDT [facility] Anion Gap 15 3 - 16 mmol/L 03/18/2022 7:33 AM EDT [facility] BUN 60(H) 7 - 25 mg/dL 03/18/2022 7:33 AM EDT [facility] Creatinine 9.96(H) 0.60 - 1.30 mg/dL 03/18/2022 7:33 AM EDT [facility] Glucose 91 70 - 100 mg/dL 03/18/2022 7:33 AM EDT [facility] Calcium 8.3(L) 8.6 - 10.3 mg/dL 03/18/2022 7:33 AM EDT [facility] Phosphorus 7.0(H) 2.1 - 4.7 mg/dL 03/18/2022 7:33 AM EDT [facility] Albumin 4.2 3.5 - 5.7 g/dL 03/18/2022 7:33 AM EDT [facility] Osmolality, Calculated 302 278 - 305 mOsm/kg 03/18/2022 7:33 AM EDT [facility] EGFR 6 03/18/2022 7:33 AM EDT [facility] Comment:As of 2021, the estimated [...] Disease. Am J Kidney Dis. 2020. Plasma 03/18/2022 4:58 AM EDT 03/18/2022 6:56 AM EDT Neyda Espinoza MD LAB BLOOD ORDERABLES Final Res ult [facility] [address] [place] [address] * Magnesium (03/18/2022 4:58 AM EDT) Magnesium 2.0 1.5 - 2.5 mg/dL 03/18/2022 7:33 AM EDT [facility] Plasma 03/18/2022 4:58 AM EDT 03/18/2022 6:56 AM EDT Neyda Espinoza MD LAB BLOOD ORDERABLES Final Res ult [facility] [address] [place] [address] * (ABNORMAL) POC Glucose Monitoring Device (03/18/2022 3:57 AM EDT) POC Glucose Monitoring Device 123(H) 70 - 100 mg/dL 03/18/2022 3:58 AM EDT [facility] Blood 03/18/2022 3:57 AM EDT 03/18/2022 3:57 AM EDT Kelsey Carcamo MD POINT OF CARE TEST ORDERA BLES Final Result Performing Organization Address [facility] Co de Phone Number [facility] [address] * ECG 12 lead (MUSE) (03/18/2022 12:43 AM EDT) 03/18/2022 12:4 3 AM EDT Narrative MUSE - 03/19/2022 12:37 AM EDT Ventricular Rate: ??71 ??BPM Atrial Rate: ??71 ??BPM P-R Interval: ??234 ??ms QRS Duration: ??108 ??ms QT: ??472 ??ms QTc: ??512 ??ms P Atlantic: ??50 ??degrees R Atlantic: ??71 ??degrees T Atlantic: ??40 ??degrees Diagnosis Line: ??SINUS RHYTHM WITH 1ST DEGREE A-V BLOCK ^ PROLONGED QT ^ ABNORMAL ECG ^ COMPARED TO THE ECG OF 17-MAR-2022 03:37, ^ BORDERLINE CRITERIA FOR INFERIOR INFARCT ARE NO LONGER PRESENT ^ NONSPECIFIC T WAVE CHANGE HAS REPLACED INVERTED T WAVES IN INFERIOR LEADS ^ Confirmed by MD ANTONIO, AMANTONY ([id number]) on 03/19/2022 12:37:36 AM Grace Payan DO ECG ORDERABLES Final Result Performing Organization Address City/[facility] Co de Phone Number MUSE * #2 Blood culture-Peripheral site 2 (03/18/2022 12:16 AM EDT) Culture Result No Growth After 5 Days [facility] Blood BLOOD SPECIMEN / Unknown 03/18/2022 12:16 AM EDT 03/18/2022 1:00 AM EDT Narrative [facility] - 03/23/2022 1:02 AM EDT Suboptimal volume of blood received. Interpret results with caution. Neyda Espinoza MD MICROBIOLOGY - GENERAL ORDERAB LES Final Result [facility] [address] * (ABNORMAL) POC Glucose Monitoring Device (03/17/2022 11:40 PM EDT) [facility] POC Glucose Monitoring Device 207(H) 70 - 100 mg/dL 03/17/2022 11:41 PM EDT [facility] Blood 03/17/2022 11:4 0 PM EDT 03/17/2022 11:41 PM EDT us Kelsey Carcamo MD POINT OF CARE TEST ORDERA BLES Final Result Performing Organization Address [facility] Co de Phone Number [facility] [address] * (ABNORMAL) Hepatitis B Surface Antibody, Quantitati (03/17/2022 9:23 PM EDT) [facility] HBSAB NUMBER >500.00(H ) 0.00 - 7.99 mIU/mL 03/17/2022 10:44 PM EDT [facility] Hep B S Ab Reactive( A) Nonreactive 03/17/2022 10:44 PM EDT [facility] Serum 03/17/2022 9:23 PM EDT 03/17/2022 9:40 PM EDT Narrative [facility] - 03/17/2022 10:44 PM EDT Individual is considered immune to HBV infection. us Fortino Palomino DO LAB BLOOD ORDERABLES Fi nal Result [facility] [address] * (ABNORMAL) Hepatitis B Core Antibody (03/17/2022 9:23 PM EDT) Pathologist [facility] Hep B Core Total Ab Reactive( A) Nonreactive 03/17/2022 11:39 PM EDT [facility] Comment: Health Department notified in accordance with reportable infectious disease guidelines. Health Department notified in accordance with reportable infectious disease guidelines. Serum 03/17/2022 9:23 PM EDT 03/17/2022 9:40 PM EDT [facility] - 03/17/2022 11:39 PM EDT A reactive final interpretation indicates presumptive evidence of HBV; anti-HBc antibodies were detected in the sample which suggests either on-going or previous HBV infection. Equals6Reinaldo Georgette DO LAB BLOOD ORDERABLES Fi nal Result Performing Organization Address [facility] Co de Phone Number [facility] [address] [place] [address] * Hepatitis A IgM (03/17/2022 9:23 PM EDT) Hep A IgM Nonreactive Nonreactive 03/17/2022 10:30 PM EDT [facility] Serum 03/17/2022 9:23 PM EDT 03/17/2022 9:40 PM EDT [facility] - 03/17/2022 10:30 PM EDT IgM anti-HAV not detected. Does not exclude the possibility of exposure to or infection with HAV. ??Levels of IgM anti-HAV may be below the cut-off in early infection. Fortinomirta Mahajana DO LAB BLOOD ORDERABLES Fi nal Result Performing Organization Address [facility] Co de Phone Number [facility] [address] [place] [address] * Hepatitis C Antibody (03/17/2022 9:23 PM EDT) HCV Ab Nonreactive Nonreactive 03/17/2022 10:40 PM EDT [facility] Comment:Health Department no tified in accordance with reportable infectious disease guidelines. Serum 03/17/2022 9:23 PM EDT 03/17/2022 9:40 PM EDT [facility] - 03/17/2022 10:40 PM EDT Antibodies to HCV not detected; does not exclude the possibility of exposure to HCV. Fortino rumrlla LAB BLOOD ORDERABLES Fi nal Result Performing Organization Address [facility]/ZIP Co de Phone Number [facility] [address] * Hepatitis B surface antigen (03/17/2022 9:23 PM EDT) Hep B Surface Ag Nonreactive Nonreactive 03/17/2022 10:35 PM EDT [facility] Comment:Health Department no tified in accordance with reportable infectious disease guidelines. Serum 03/17/2022 9:23 PM EDT 03/17/2022 9:40 PM EDT Narrative [facility] - 03/17/2022 10:35 PM EDT Specimen is considered negative for HBsAg. Fortino Reinaldo [facility] LAB BLOOD ORDERABLES Fi nal Result Performing Organization Address [facility] Co de Phone Number [facility] [address] * #1 Blood culture-Peripheral site 1 (03/17/2022 9:23 PM EDT) Pathologist [facility] Culture Result No Growth After 5 Days [facility] Blood BLOOD SPECIMEN / Unknown 03/17/2022 9:23 PM EDT 03/17/2022 9:47 PM EDT [facility] - 03/22/2022 9:50 PM EDT Suboptimal volume of blood received. Interpret results with caution. Neyda Espinoza MD MICROBIOLOGY - GENERAL ORDERAB LES Final Result Performing Organization Address [facility]/ZIP Co de Phone Number [facility] [address] [place] [address] * (ABNORMAL) Cyclosporine level (03/17/2022 9:23 PM EDT) Cyclosporine, LC/MS 67.3(L) 100.0 - 350.0 ng/mL 03/18/2022 3:25 PM EDT [facility] Comment:Performed via liquid chromatography tandem mass spectrometry. Detection limit: 20 ng/mL. Individual target concentrations may vary due to target organ and time after transplant. This test has been developed and its performance characteristics determined by [facility] which is certified under the Clinical Laboratory Improvement Amendment of 1988 (CLIA-88) to perform high complexity testing. The test has not been cleared or approved by the US Food and Drug Administration (FDA). The FDA has determined that such clearance is not necessary. The test should be used for clinical purposes and is not regarded as investigational. Whole Blood 03/17/2022 9:23 PM EDT 03/17/2022 9:27 PM EDT Narrative [facility] - 03/18/2022 3:25 PM EDT Please obtain trough level prior to evening dose Nadya Ramirez MD LAB BLOOD ORDERABLES Final Resul t Performing Organization Address City/[facility] Co de Phone Number [address] * (ABNORMAL) POC Glucose Monitoring Device (03/17/2022 6:03 PM EDT) [facility] POC Glucose Monitoring Device 127(H) 70 - 100 mg/dL 03/17/2022 6:04 PM EDT [facility] Blood 03/17/2022 6:03 PM EDT 03/17/2022 6:04 PM EDT Kelsey Carcamo MD POINT OF CARE TEST ORDERA BLES Final Result Performing Organization Address [facility] Co de Phone Number [facility] [address] [place] [address] * Echo 2D Complete (TTE) (03/17/2022 1:55 PM EDT) 03/17/2022 1:17 PM EDT Narrative [facility] - 03/17/2022 3:00 PM EDT ?* [facility]* ?[address] ? [place] [address] ? [phone] Transthoracic Echocardiography Patient: ?Leoncio Rollins MR #: ? [id number] Account: Study Date: 03/17/2022 Gender: ? M Age: ?47 : ?1975 Room: ? COUNTS INCLUDE 234 BEDS AT THE [facility] FELLOW ? Dontae Hawkins MD PERFORMING ?? Vinod Stokes MD READING ?Dontae Hawkins MD PANAMA H[employer] BLOCKER ??Ashish Sheldon ORDERING ? Mandi Mora REFERRING ?Mandi Mora ATTENDING ?Kelsey Carcamo ADMITTING ?Kelsey Carcamo Procedure:ECHO 2D COMPLETE (TTE) ?Order: [...] was increased in a pattern of moderate ??LVH. Systolic function was mildly reduced. The estimated ejection fraction was in the range of 45% ??to 50%. Features are consistent with a pseudonormal left ventricular filling pattern, with ??concomitant abnormal relaxation and increased filling pressure (grade 2 diastolic dysfunction). - Regional wall motion abnormality: Hypokinesis of the basal-mid anteroseptal myocardium. - Aortic valve: Focal calcification involving the left coronary cusp. Left coronary cusp mobility ??was severely restricted. - Mitral valve: Moderately calcified annulus. There is a mobile echodensity on the posterior aspect ??of the mitral annulus which represents a small mobile calcification versus vegetation. - Right ventricle: The cavity size is severely dilated. Wall thickness is normal. Systolic function ??was moderately reduced by visual assessment. Tricuspid annular systolic velocity: 8cm/s. - Pulmonary arteries: The peak pressure during systole by Doppler is 61mm Hg. - Inferior vena cava: The vessel was dilated. The respirophasic diameter changes were blunted (< ??50%), consistent with elevated central venous pressure. Impressions: ??Compared to prior there is likely a mild interval decrease in the LV ejection fraction. The RV is better visualized on the current study and is dilated with moderately depressed function. Cardiac Anatomy Left ventricle: - The cavity size is normal. Wall thickness was increased in a pattern of moderate LVH. Systolic ??function was mildly reduced. The estimated ejection fraction was in the range of 45% to 50%. Regional wall motion abnormalities: - Hypokinesis of the basal-mid anteroseptal myocardium. - Features are consistent with a pseudonormal left ventricular filling pattern, with concomitant ??abnormal relaxation and increased filling pressure (grade 2 diastolic dysfunction). Aorta: ?? Aortic root: - The aortic root is normal in size. Aortic valve: - Trileaflet; moderately thickened leaflets. Focal calcification involving the left coronary cusp. ??Left coronary cusp mobility was severely restricted. Doppler: - Transvalvular velocity is minimally increased. There is no stenosis. No regurgitation. Mitral valve: - Poorly visualized. Moderately calcified annulus. There is a mobile echodensity on the posterior ??aspect of the mitral annulus which represents a small mobile calcification versus vegetation. Doppler: - Transvalvular velocity is within the normal range. There is no evidence for stenosis. Trivial ??regurgitation. Left atrium: - The atrium is mildly dilated. Systemic veins: Inferior vena cava: The vessel was dilated. The respirophasic diameter changes were blunted (< 50%), consistent with elevated central venous pressure. Right ventricle: - The cavity size is severely dilated. Wall thickness is normal. Systolic function was moderately ??reduced by visual assessment. Tricuspid annular systolic velocity: 8cm/s. Pulmonic valve: ?Doppler: - Transvalvular velocity is within the normal range. There is no evidence for stenosis. Trivial ??regurgitation. Tricuspid valve: - Structurally normal valve. Doppler: - Transvalvular velocity is within the normal range. Mild-moderate regurgitation directed ??eccentrically. Right atrium: - The atrium is normal in size. Pericardium: - There is no pericardial effusion. Systemic veins: Inferior vena cava: - The vessel was dilated. The respirophasic diameter changes were blunted (< 50%), consistent with ??elevated central venous pressure. Measurements Left ventricle ? Value ?06/01/2020 Ref GINA, LAX ? (N) ? 5.7 ?? cm ? 4.2 - 5.8 ESD, LAX ? (H) ? 4.5 ?? cm ? 2.5 - 4.0 GINA/bsa, LAX ? (N) ? 2.2 ?? cm/m^2 ?? 2.2 - 3.0 ESD/bsa, LAX ? (N) ? 1.7 ?? cm/m^2 ?? 1.3 - 2.1 FS, LAX ?(L) ? 21 ?% ? 25 - 43 FS, LAX chord ?(L) ? 21 ?% ? 25 - 43 ESD ?(H) ? 4.5 ?? cm ? 2.5 - 4.0 ESD/bsa ?(N) ? 1.7 ?? cm/m^2 ?? 1.3 - 2.1 PW, ED ? (H) ? 1.5 ?? cm ? 0.6 - 1.0 IVS/PW, ED ? 1 ? EDV ?(H) ? 160 ?? ml ? 62 - 150 ESV ?(H) ? 92 ?ml ? 21 - 61 EF ? (L) ? 42 ?% ? 52 - 72 SV ? 113 ?? ml ? EDV/bsa ?(N) ? 61 ?ml/m^2 ?? 34 - 74 ESV/bsa ?(H) ? 35 ?ml/m^2 ?? 11 - 31 SV/bsa ? 43 ?ml/m^2 ?? SV, 1-p A2C ?68 ?ml ? SV/bsa, 1-p A2C ?25.6 ??ml/m^2 ?? SV, 1-p A4C ?94 ?ml ? 137 ? SV/bsa, 1-p A4C ?36 ?ml/m^2 ?? 59 ? E', lat denilson, TDI ? (N) ? 10.9 ??cm/sec ?? 17.9 ? >=10.0 E/e', lat denilson, TDI ? 11 ? 8 ? A', lat denilson, TDI ? 11.9 ??cm/sec ?? E'/a', lat denilson, TDI ?0.92 ? S', lat denilson, TDI ? 9.6 ?? cm/sec ?? 10.9 ? E', med denilson, TDI ? (N) ? 7.1 ?? cm/sec ?? 12.0 ? >=7.0 E/e', med denilson, TDI ? 17 ? 12 ? A', med denilson, TDI ? 6.4 ?? cm/sec ?? E'/a', med denilson, TDI ?1.1 ? S', med denilson, TDI ? 7.0 ?? cm/sec ?? 10.6 ? E', avg, TDI ? 9.0 ?? cm/sec ?? 15.0 ? E/e', avg, TDI ? (N) ? 13 ? 10 ? <=14 LVET ? 290 ?? ms ? LVOT ? Value ?06/01/2020 Ref [place], S ?2.3 ?? cm ? Area ? 4.2 ?? cm^2 ? Peak cesilia, S ?1.29 ??m/sec ?1.38 ? Mean cesilia, S ?0.81 ??m/sec ? Peak grad, S ? 7 ? mm Hg ?8 ? SV ? 113 ?? ml ? SV/bsa ? 43 ?ml/m^2 ?? Ventricular septum ? Value ?06/01/2020 Ref IVS, ED ?(H) ? 1.5 ?? cm ? 0.6 - 1.0 Right ventricle ?Value ?06/01/2020 Ref GINA, LAX ? 2.9 ?? cm ? 5.8 ? TAPSE, MM ?(N) ? 2.0 ?? cm ? 2.1 ?1.7 - 3.1 S' lateral ? (N) ? 7.9 ?? cm/sec ?? 13.2 ? 6.0 - 13.4 RVOT ? Value ?06/01/2020 Ref Peak v, S ?0.74 ??m/sec ?1.18 ? Left atrium ?Value ?06/01/2020 Ref AP dim, ES ? (N) ? 3.2 ?? cm ? 4.4 ?3.0 - 4.0 AP dim index ? (L) ? 1.2 ?? cm/m^2 ?? 1.9 ?1.5 - 2.3 Area ES, A4C ? (H) ? 26 ?cm^2 ? 23 ? <=20 Area ES, A2C ? 27 ?cm^2 ? 25 ? SI dim, A2C ?6.4 ?? cm ? 5.4 ? Vol, ES, 1-p A4C ? (H) ? 82 ?ml ? 68 ? 18 - 58 Vol/bsa, ES, 1-p A4C (N) ? 31 ?ml/m^2 ?? 29 ? 12 - 37 Vol, ES, 1-p A2C ? (H) ? 92 ?ml ? 87 ? 18 - 58 Vol/bsa, ES, 1-p A2C (N) ? 35 ?ml/m^2 ?? 37 ? 11 - 43 Vol, ES, 2-p ? 87 ?ml ? 80 ? Vol/bsa, ES, 2-p ? (N) ? 33 ?ml/m^2 ?? 34 ? 16 - 34 Right atrium ? Value ?06/01/2020 Ref Area, ES, A4C ?(H) ? 22 ?cm^2 ? 22 ? 10 - 18 Aortic valve ? Value ?06/01/2020 Ref Peak v, S ?1.7 ?? m/sec ?2.2 ? Mean v, S ?1.22 ??m/sec ?1.47 ? Mean grad, S ? 7 ? mm Hg ?11 ? Peak grad, S ? 11 ?mm Hg ?20 ? LVOT/AV, VTI ratio ? 0.78 ? LEO, VTI ? 3.2 ?? cm^2 ? LEO/bsa, VTI ? 1.22 ??cm^2/m^2 LVOT/AV, Vpeak ratio ? 0.78 ? 0.62 ? LEO, Vmax ?3.2 ?? cm^2 ? LEO/bsa, Vmax ?1.22 ??cm^2/m^2 LVOT/AV, Vmean ratio ? 0.66 ? LEO, Vmean ? 2.7 ?? cm^2 ? LEO/bsa, Vmean ? 1.04 ??cm^2/m^2 Mitral valve ? Value ?06/01/2020 Ref Peak E ? 1.2 ?? m/sec ?1.49 ? Peak A ? 0.97 ??m/sec ? Decel time ? 261 ?? ms ? 204 ? Peak grad, D ? 6 ? mm Hg ?9 ? Peak E/A ratio ? 1.2 ? Pulmonic valve ? Value ?06/01/2020 Ref Peak v, S ?1.2 ?? m/sec ?1.6 ? Tricuspid valve ?Value ?06/01/2020 Ref TR peak v ?(N) ? 2.8 ?? m/sec ? <=2.8 Peak RV-RA grad, S ? 46 ?mm Hg ? Max TR cesilia ? 2.84 ??m/sec ? Aortic root ?Value ?06/01/2020 Ref Root diam ?(N) ? 3.2 ?? cm ? 2.9 ?<4.6 Ascending aorta ?Value ?06/01/2020 Ref AAo AP diam, S ? 2.9 ?? cm ? AAo AP diam/bsa, S ? 1.1 ?? cm/m^2 ?? Pulmonary artery ? Value ?06/01/2020 Ref Pressure, S ?61 ?mm Hg ? Legend: (L) ??and ??(H) ??krunal values outside specified reference range. (N) ??moran values inside specified reference range. I personally reviewed the images and agree with the interpretation of the resident. ?Reviewed and confirmed by Vinod Stokes MD [id number] Procedure Note Vinod Stokes MD - 03/17/2022 * [facility]* [address] [place] [address] Transthoracic Echocardiography Patient: Leoncio Rollins MR #: [id number] Account: Study Date: 03/17/2022 Gender: M Age: 47 : 1975 Room: COUNTS INCLUDE 234 BEDS AT THE [facility] FELLOW Dontae Hawkins MD PERFORMING Vinod Stokes MD READING Dontae Hawkins MD PANAMA HAT BLOCKER Ashish Sheldon ORDERING Mandi Mora REFERRING Mandi Mora ATTENDING Kelsey Carcamo ADMITTING Kelsey Carcamo Procedure:ECHO 2D COMPLETE (TTE) Order: Indications: Heart Failure Systolic (I50.20). Study data: Height: 69in. 175.3cm. Weight: 298.3lb. 135.6kg. Comparison was made to the study of 06/01/2020. Study status: Routine. Procedure: Transthoracic echocardiography. Image quality was good. Scanning was performed from the parasternal, apical, and subcostal acoustic windows. Transthoracic echocardiography. M-mode, complete 2D, complete spectral Doppler, and color Doppler. Birthdate: Patient birthdate: 1975. Age: Patient is 47yr old. Sex: gender: male. Body mass index: BMI: 44.1kg/m^2. Body surface area: BSA: 2.64m^2. Blood pressure: 141/80 Patient status: Inpatient. Study date: Study date: 03/17/2022. Study time: 01:17 PM. Location: Bedside. Study Conclusions - Left ventricle: The cavity size is normal. Wall thickness was increasedin a pattern of moderate LVH. Systolic function was mildly reduced. The estimated ejectionfraction was in the range of 45% to 50%. Features are consistent with a pseudonormal left ventricularfilling pattern, with concomitant abnormal relaxation and increased filling pressure (grade 2diastolic dysfunction). - Regional wall motion abnormality: Hypokinesis of the basal-midanteroseptal myocardium. - Aortic valve: Focal calcification involving the left coronary cusp. Leftcoronary cusp mobility was severely restricted. - Mitral valve: Moderately calcified annulus. There is a mobileechodensity on the posterior aspect of the mitral annulus which represents a small mobile calcificationversus vegetation. - Right ventricle: The cavity size is severely dilated. Wall thickness isnormal. Systolic function was moderately reduced by visual assessment. Tricuspid annular systolicvelocity: 8cm/s. - Pulmonary arteries: The peak pressure during systole by Doppler is 61mmHg. - Inferior vena cava: The vessel was dilated. The respirophasic diameterchanges were blunted (< 50%), consistent with elevated central venous pressure. Impressions: Compared to prior there is likely a mild interval decrease in the LV ejection fraction. The RV is better visualized on the current study and is dilated with moderately depressed function. Cardiac Anatomy Left ventricle: - The cavity size is normal. Wall thickness was increased in a pattern ofmoderate LVH. Systolic function was mildly reduced. The estimated ejection fraction was in therange of 45% to 50%. Regional wall motion abnormalities: - Hypokinesis of the basal-mid anteroseptal myocardium. - Features are consistent with a pseudonormal left ventricular fillingpattern, with concomitant abnormal relaxation and increased filling pressure (grade 2 diastolicdysfunction). Aorta: Aortic root: - The aortic root is normal in size. Aortic valve: - Trileaflet; moderately thickened leaflets. Focal calcification involvingthe left coronary cusp. Left coronary cusp mobility was severely restricted. Doppler: - Transvalvular velocity is minimally increased. There is no stenosis. Noregurgitation. Mitral valve: - Poorly visualized. Moderately calcified annulus. There is a mobileechodensity on the posterior aspect of the mitral annulus which represents a small mobilecalcification versus vegetation. Doppler: - Transvalvular velocity is within the normal range. There is no evidencefor stenosis. Trivial regurgitation. Left atrium: - The atrium is mildly dilated. Systemic veins: Inferior vena cava: The vessel was dilated. The respirophasic diameter changes were blunted (< 50%), consistent with elevated central venous pressure. Right ventricle: - The cavity size is severely dilated. Wall thickness is normal. Systolicfunction was moderately reduced by visual assessment. Tricuspid annular systolic velocity:8cm/s. Pulmonic valve: Doppler: - Transvalvular velocity is within the normal range. There is no evidencefor stenosis. Trivial regurgitation. Tricuspid valve: - Structurally normal valve. Doppler: - Transvalvular velocity is within the normal range. Mild-moderateregurgitation directed eccentrically. Right atrium: - The atrium is normal in size. Pericardium: - There is no pericardial effusion. Systemic veins: Inferior vena cava: - The vessel was dilated. The respirophasic diameter changes were blunted(< 50%), consistent with elevated central venous pressure. Measurements Left ventricle Value 06/01/2020 Ref GINA, LAX (N) 5.7 cm 4.2 - 5.8 ESD, LAX (H) 4.5 cm 2.5 - 4.0 GINA/bsa, LAX (N) 2.2 cm/m^2 2.2 - 3.0 ESD/bsa, LAX (N) 1.7 cm/m^2 1.3 - 2.1 FS, LAX (L) 21 % 43 FS, LAX chord (L) 21 % 25 43 ESD (H) 4.5 cm 2.5 - 4.0 ESD/bsa (N) 1.7 cm/m^2 1.3 - 2.1 PW, ED (H) 1.5 cm 0.6 - 1.0 IVS/PW, ED 1 EDV (H) 160 ml 62 - 150 ESV (H) 92 ml 61 EF (L) 42 % 52 - 72 SV 113 ml EDV/bsa (N) 61 ml/m^2 34 - 74 ESV/bsa (H) 35 ml/m^2 11 - 31 SV/bsa 43 ml/m^2 SV, 1-p A2C 68 ml SV/bsa, 1-p A2C 25.6 ml/m^2 SV, 1-p A4C 94 ml 137 SV/bsa, 1-p A4C 36 ml/m^2 59 E', lat denilson, TDI (N) 10.9 cm/sec 17.9 >=10.0 E/e', lat denilson, TDI 11 8 A', lat denilson, TDI 11.9 cm/sec E'/a', lat denilson, TDI 0.92 S', lat denilson, TDI 9.6 cm/sec 10.9 E', med denilson, TDI (N) 7.1 cm/sec 12.0 >=7.0 E/e', med denilson, TDI 17 12 A', med denilson, TDI 6.4 cm/sec E'/a', med denilson, TDI 1.1 S', med denilson, TDI 7.0 cm/sec 10.6 E', avg, TDI 9.0 cm/sec 15.0 E/e', avg, TDI (N) 13 10 <=14 LVET 290 ms LVOT Value 06/01/2020 Ref Diam, S 2.3 cm Area 4.2 cm^2 Peak cesilia, S 1.29 m/sec 1.38 Mean cesilia, S 0.81 m/sec Peak grad, S 7 mm Hg 8 SV 113 ml SV/bsa 43 ml/m^2 Ventricular septum Value 06/01/2020 Ref IVS, ED (H) 1.5 cm 0.6 - 1.0 Right ventricle Value 06/01/2020 Ref GINA, LAX 2.9 cm 5.8 TAPSE, MM (N) 2.0 cm 2.1 1.7 - 3.1 S' lateral (N) 7.9 cm/sec 13.2 6.0 - 13.4 RVOT Value 06/01/2020 Ref Peak v, S 0.74 m/sec 1.18 Left atrium Value 06/01/2020 Ref AP dim, ES (N) 3.2 cm 4.4 3.0 - 4.0 AP dim index (L) 1.2 cm/m^2 1.9 1.5 - 2.3 Area ES, A4C (H) 26 cm^2 23 <=20 Area ES, A2C 27 cm^2 25 SI dim, A2C 6.4 cm 5.4 Vol, ES, 1-p A4C (H) 82 ml 68 18 - 58 Vol/bsa, ES, 1-p A4C (N) 31 ml/m^2 29 12 - 37 Vol, ES, 1-p A2C (H) 92 ml 87 18 - 58 Vol/bsa, ES, 1-p A2C (N) 35 ml/m^2 37 11 - 43 Vol, ES, 2-p 87 ml 80 Vol/bsa, ES, 2-p (N) 33 ml/m^2 34 16 - 34 Right atrium Value 06/01/2020 Ref Area, ES, A4C (H) 22 cm^2 22 10 - 18 Aortic valve Value 06/01/2020 Ref Peak v, S 1.7 m/sec 2.2 Mean v, S 1.22 m/sec 1.47 Mean grad, S 7 mm Hg 11 Peak grad, S 11 mm Hg 20 LVOT/AV, VTI ratio 0.78 LEO, VTI 3.2 cm^2 LEO/bsa, VTI 1.22 cm^2/m^2 LVOT/AV, Vpeak ratio 0.78 0.62 LEO, Vmax 3.2 cm^2 LEO/bsa, Vmax 1.22 cm^2/m^2 LVOT/AV, Vmean ratio 0.66 LEO, Vmean 2.7 cm^2 LEO/bsa, Vmean 1.04 cm^2/m^2 Mitral valve Value 06/01/2020 Ref Peak E 1.2 m/sec 1.49 Peak A 0.97 m/sec Decel time 261 ms 204 Peak grad, D 6 mm Hg 9 Peak E/A ratio 1.2 Pulmonic valve Value 06/01/2020 Ref Peak v, S 1.2 m/sec 1.6 Tricuspid valve Value 06/01/2020 Ref TR peak v (N) 2.8 m/sec <=2.8 Peak RV-RA grad, S 46 mm Hg Max TR cesilia 2.84 m/sec Aortic root Value 06/01/2020 Ref Root diam (N) 3.2 cm 2.9 <4.6 Ascending aorta Value 06/01/2020 Ref AAo AP diam, S 2.9 cm AAo AP diam/bsa, S 1.1 cm/m^2 Pulmonary artery Value 06/01/2020 Ref Pressure, S 61 mm Hg Legend: (L) and (H) krunal values outside specified reference range. (N) moran values inside specified reference range. I personally reviewed the images and agree with the interpretation of the resident. Reviewed and confirmed by Vinod Stokes MD [id number] us Mandi Mora MD CV ECHO ORDERABLES Final Resul t [facility] * (ABNORMAL) POC Glucose Monitoring Device (03/17/2022 1:00 PM EDT) POC Glucose Monitoring Device 103(H) 70 - 100 mg/dL 03/17/2022 1:01 PM EDT [facility] Blood 03/17/2022 1:00 PM EDT 03/17/2022 1:01 PM EDT us Kelsey Carcamo MD POINT OF CARE TEST ORDERA BLES Final Result Performing Organization Address City/[facility]/ZIP Co de Phone Number [facility] [address] * (ABNORMAL) CBC (03/17/2022 9:57 AM EDT) WBC 2.7(L) 3.8 - 10.8 10E3/uL 03/17/2022 10:43 AM EDT [facility] RBC 2.59(L) 4.20 - 5.80 10E6/uL 03/17/2022 10:43 AM EDT [facility] Hemoglobin 8.7(L) 13.2 - 17.1 g/dL 03/17/2022 10:43 AM EDT [facility] Hematocrit 26.5(L) 38.5 - 50.0 % 03/17/2022 10:43 AM EDT [facility] MCV 102.5(H) 80.0 - 100.0 fL 03/17/2022 10:43 AM EDT [facility] MCH 33.6(H) 27.0 - 33.0 pg 03/17/2022 10:43 AM EDT [facility] MCHC 32.8 32.0 - 36.0 g/dL 03/17/2022 10:43 AM EDT [facility] RDW 14.5 11.0 - 15.0 % 03/17/2022 10:43 AM EDT [facility] Platelets 149 140 - 400 10E3/uL 03/17/2022 10:43 AM EDT [facility] MPV 7.4(L) 7.5 - 11.5 fL 03/17/2022 10:43 AM EDT [facility] Whole Blood 03/17/2022 9:57 AM EDT 03/17/2022 10:34 AM EDT us Nadya Ramirez MD LAB BLOOD ORDERABLES Final Resul t [facility] [address] * US Duplex [id number] Comp (03/17/2022 8:09 AM EDT) Anatomical Region Laterality Modality Abdomen, Pelvis, Testes, Vascular Ultrasound 03/17/2022 7:45 AM EDT Impressions 03/17/2022 10:32 AM EDT IMPRESSION: ABDOMEN 1. 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 2. 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 LIVER DOPPLER Patent hepatic vasculature with normal arterial waveforms. Approved by Jay Lucas DO on 03/17/2022 10:10 AM EDT I have personally reviewed the images and I agree with this report. Report Verified by: Manolo Rosenthal MD at 03/17/2022 10:32 AM EDT Narrative 03/17/2022 10:32 AM EDT EXAM: US ABDOMEN COMPLETE EXAM: US DUPLEX [id number] COMPLETE INDICATION: ??Elevated LFTs. Remote liver transplant. DATE: 03/17/2022 7:45 AM EDT COMPARISON: ??01/12/2019 TECHNIQUE: ??Grayscale imaging was performed for evaluation of the liver, gallbladder, common bile duct, pancreas, spleen, and kidneys; color and spectral (duplex) Doppler analysis of the hepatic vasculature was also performed. FINDINGS: Liver: Normal sonographic appearance of the transplant liver. No focal hepatic observations. Biliary/CBD: 11 mm. No intrahepatic biliary ductal dilatation. Gallbladder: Surgically absent. Pancreas: Obscured by overlying bowel gas. Right kidney: 8.8 cm in length. ??Increased parenchymal echogenicity. ??No hydronephrosis. Diffuse cortical thinning. Left kidney: Not visualized due to overlying bowel gas. Spleen: Enlarged measuring 15.6 cm. Aorta and IVC: Visualized portions of the abdominal aorta are not aneurysmal. The retrohepatic IVC is color Doppler patent. Other: No free fluid. DOPPLER: Hepatic Veins: Duplex evaluation of the hepatic vasculature demonstrates normal flow in the right, middle and left hepatic veins. Portal Veins: The right, left and main portal vein demonstrate hepatopetal flow. Hepatic Arteries: Right, main and left hepatic arteries demonstrate normal waveforms. Resistive Indices Main hepatic artery: 0.77 Right hepatic artery: ??0.82 Left hepatic artery: ??0.75 Procedure Note Manolo Rosenthal MD - 03/17/2022 EXAM: US ABDOMEN COMPLETE EXAM: US DUPLEX [id number] COMPLETE INDICATION: Elevated LFTs. Remote liver transplant. DATE: 03/17/2022 7:45 AM EDT COMPARISON: 01/12/2019 TECHNIQUE: Grayscale imaging was performed for evaluation of the liver,gallbladder, common bile duct, pancreas, spleen, and kidneys; color andspectral (duplex) Doppler analysis of the hepatic vasculature was alsoperformed. FINDINGS: Liver: Normal sonographic appearance of the transplant liver. No focalhepatic observations. Biliary/CBD: 11 mm. No intrahepatic biliary ductal dilatation. Gallbladder: Surgically absent. Pancreas: Obscured by overlying bowel gas. Right kidney: 8.8 cm in length. Increased parenchymal echogenicity. Nohydronephrosis. Diffuse cortical thinning. Left kidney: Not visualized due to overlying bowel gas. Spleen: Enlarged measuring 15.6 cm. Aorta and IVC: Visualized portions of the abdominal aorta are notaneurysmal. The retrohepatic IVC is color Doppler patent. Other: No free fluid. DOPPLER: Hepatic Veins: Duplex evaluation of the hepatic vasculature demonstratesnormal flow in the right, middle and left hepatic veins. Portal Veins: The right, left and main portal vein demonstrate hepatopetalflow. Hepatic Arteries: Right, main and left hepatic arteries demonstrate normalwaveforms. Resistive Indices Main hepatic artery: 0.77 Right hepatic artery: 0.82 Left hepatic artery: 0.75 IMPRESSION: ABDOMEN 1. 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 2. Medical renal disease of the right kidney with left kidney notvisualized. LIVER DOPPLER Patent hepatic vasculature with normal arterial waveforms. Approved by Jay Lucas DO on 03/17/2022 10:10 AM EDT I have personally reviewed the images and I agree with this report. Report Verified by: Manolo Rosenthal MD at 03/17/2022 10:32 AM EDT us Grace Payan DO [facility] US ORDERABLES Final Resul t * US Abdomen Complete (03/17/2022 8:09 AM EDT) Anatomical Region Laterality Modality Abdomen Ultrasound 03/17/2022 7:45 AM EDT Impressions 03/17/2022 10:32 AM EDT IMPRESSION: ABDOMEN 1. 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 2. 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 LIVER DOPPLER Patent hepatic vasculature with normal arterial waveforms. Approved by Jay Lucas DO on 03/17/2022 10:10 AM EDT I have personally reviewed the images and I agree with this report. Report Verified by: Manolo Rosenthal MD at 03/17/2022 10:32 AM EDT Narrative 03/17/2022 10:32 AM EDT EXAM: US ABDOMEN COMPLETE EXAM: US DUPLEX [id number] COMPLETE INDICATION: ??Elevated LFTs. Remote liver transplant. DATE: 03/17/2022 7:45 AM EDT COMPARISON: ??01/12/2019 TECHNIQUE: ??Grayscale imaging was performed for evaluation of the liver, gallbladder, common bile duct, pancreas, spleen, and kidneys; color and spectral (duplex) Doppler analysis of the hepatic vasculature was also performed. FINDINGS: Liver: Normal sonographic appearance of the transplant liver. No focal hepatic observations. Biliary/CBD: 11 mm. No intrahepatic biliary ductal dilatation. Gallbladder: Surgically absent. Pancreas: Obscured by overlying bowel gas. Right kidney: 8.8 cm in length. ??Increased parenchymal echogenicity. ??No hydronephrosis. Diffuse cortical thinning. Left kidney: Not visualized due to overlying bowel gas. Spleen: Enlarged measuring 15.6 cm. Aorta and IVC: Visualized portions of the abdominal aorta are not aneurysmal. The retrohepatic IVC is color Doppler patent. Other: No free fluid. DOPPLER: Hepatic Veins: Duplex evaluation of the hepatic vasculature demonstrates normal flow in the right, middle and left hepatic veins. Portal Veins: The right, left and main portal vein demonstrate hepatopetal flow. Hepatic Arteries: Right, main and left hepatic arteries demonstrate normal waveforms. Resistive Indices Main hepatic artery: 0.77 Right hepatic artery: ??0.82 Left hepatic artery: ??0.75 Procedure Note Manolo Rosenthal MD - 03/17/2022 EXAM: US ABDOMEN COMPLETE EXAM: US DUPLEX [id number] COMPLETE INDICATION: Elevated LFTs. Remote liver transplant. DATE: 03/17/2022 7:45 AM EDT COMPARISON: 01/12/2019 TECHNIQUE: Grayscale imaging was performed for evaluation of the liver,gallbladder, common bile duct, pancreas, spleen, and kidneys; color andspectral (duplex) Doppler analysis of the hepatic vasculature was alsoperformed. FINDINGS: Liver: Normal sonographic appearance of the transplant liver. No focalhepatic observations. Biliary/CBD: 11 mm. No intrahepatic biliary ductal dilatation. Gallbladder: Surgically absent. Pancreas: Obscured by overlying bowel gas. Right kidney: 8.8 cm in length. Increased parenchymal echogenicity. Nohydronephrosis. Diffuse cortical thinning. Left kidney: Not visualized due to overlying bowel gas. Spleen: Enlarged measuring 15.6 cm. Aorta and IVC: Visualized portions of the abdominal aorta are notaneurysmal. The retrohepatic IVC is color Doppler patent. Other: No free fluid. DOPPLER: Hepatic Veins: Duplex evaluation of the hepatic vasculature demonstratesnormal flow in the right, middle and left hepatic veins. Portal Veins: The right, left and main portal vein demonstrate hepatopetalflow. Hepatic Arteries: Right, main and left hepatic arteries demonstrate normalwaveforms. Resistive Indices Main hepatic artery: 0.77 Right hepatic artery: 0.82 Left hepatic artery: 0.75 IMPRESSION: ABDOMEN 1. 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 2. Medical renal disease of the right kidney with left kidney notvisualized. LIVER DOPPLER Patent hepatic vasculature with normal arterial waveforms. Approved by Jay Lucas DO on 03/17/2022 10:10 AM EDT I have personally reviewed the images and I agree with this report. Report Verified by: Manolo Rosenthal MD at 03/17/2022 10:32 AM EDT Grace Payan DO [facility] US ORDERABLES Final Resul t * X-ray Portable Chest (03/17/2022 6:57 AM EDT) Anatomical Region Laterality Modality Chest Radiographic Sobia ging 03/17/2022 5:54 AM EDT Impressions 03/17/2022 7:49 AM EDT IMPRESSION: No acute cardiopulmonary abnormality. Approved by Shell Thao MD on 03/17/2022 7:48 AM EDT I have personally reviewed the images and I agree with this report. Report Verified by: Adam Morelos MD at 03/17/2022 7:49 AM EDT Narrative 03/17/2022 7:49 AM EDT EXAM: XR PORTABLE CHEST INDICATION: Shortness of breath TECHNIQUE: 1 view of the chest. COMPARISON: 10/31/2021 FINDINGS: Medical Devices: None. Heart and Mediastinum: Cardiomediastinal silhouette is within normal limits. Lungs and Pleura: Lungs are clear with no focal consolidations, pleural effusions or evidence for pneumothorax. Bones and soft tissues: Unchanged. Procedure Note Adam Morelos MD - 03/17/2022 EXAM: XR PORTABLE CHEST INDICATION: Shortness of breath TECHNIQUE: 1 view of the chest. COMPARISON: 10/31/2021 FINDINGS: Medical Devices: None. Heart and Mediastinum: Cardiomediastinal silhouette is within normallimits. Lungs and Pleura: Lungs are clear with no focal consolidations, pleuraleffusions or evidence for pneumothorax. Bones and soft tissues: Unchanged. IMPRESSION: No acute cardiopulmonary abnormality. Approved by Shell Thao MD on 03/17/2022 7:48 AM EDT I have personally reviewed the images and I agree with this report. Report Verified by: Adam Morelos MD at 03/17/2022 7:49 AM EDT Grace [facility] ORDERA BLES Final Result * (ABNORMAL) POC Glucose Monitoring Device (03/17/2022 5:53 AM EDT) [facility] Signature POC Glucose Monitoring Device 110(H) 70 - 100 mg/dL 03/17/2022 5:54 AM EDT [facility] Blood 03/17/2022 5:53 AM EDT 03/17/2022 5:54 AM EDT Kelsey Carcamo MD POINT OF CARE TEST ORDERA BLES Final Result [facility] [address] [place] [address], [facility] * (ABNORMAL) Hemoglobin A1c (03/17/2022 4:49 AM EDT) [facility] Hemoglobin A1C 5.8(H) 4.0 - 5.6 % 03/17/2022 8:08 AM EDT [facility] Comment: Hemoglobin A1c Interpretation Guidelines: Normal: <5.7% Prediabetes: 5.7-6.4% Diabetes: >/= ?? 6.5% ? Diagnosis requires two independent tests unless clinical diagnosis is clear. Some clinical conditions, particularly anemias and hemoglobinopathies, may interfere with the diagnostic accuracy of hemoglobin A1c. The recommended goal for diabetic glycemic control (Hemoglobin A1c <7.0%) should be Individualized based on duration of diabetes, age/life expectancy, comorbid conditions, known CVD or advanced microvascular complications, hypoglycemia unawareness, and other individual patient considerations. Whole Blood 03/17/2022 4:49 AM EDT 03/17/2022 5:24 AM EDT us Grace Payan DO LAB BLOOD ORDERABLES Final Re sult [facility] [address] [place] [address], [facility] * 2019 Novel Coronavirus (CoVID-19), FRANKLYN-B (03/17/2022 3:40 AM EDT) SARS-CoV-2 Not Detected Not Detected 03/17/2022 9:55 AM EDT [facility] LAB Comment: This test is an amplified [...] ??Test results have been sent to the [facility] in accordance with state requirements. ?? For a fact sheet for healthcare providers, see https://www.fda.gov/media/031250/download. ??For a fact sheet for patients, see https://www.fda.gov/media/650586/download. Test LOINC ordered 14402-4 03/17/2022 9:55 AM EDT [facility] Device identifier [employer] (DIANA)_ ho [id number] 03/17/2022 9:55 AM EDT [facility] First Test No 03/17/2022 9:55 AM EDT [facility] Healthcare employee No 03/17/2022 9:55 AM EDT HEALTH LAB Symptomatic No 03/17/2022 9:55 AM EDT HEALTH LAB Hospitalized Yes 03/17/2022 9:55 AM EDT [facility] LAB In ICU No 03/17/2022 9:55 AM EDT [facility] Congregate Care Resident No 03/17/2022 9:55 AM EDT [facility] No 03/17/2022 9:55 AM EDT [facility] Nasopharyngeal Swab NASOPHARYNGEAL STRUCTURE / Unknown 03/17/2022 3:40 AM EDT 03/17/2022 3:52 AM EDT Narrative HEALTH LAB - 03/17/2022 9:55 AM EDT Does the patient have symptoms of Covid-19 (eg. Fever, dyspnea, cough, loss of smell)?->No Does the patient urgently (in <24 hours) require a surgery, invasive procedure, or cardiac stress test?->Yes Please specify the attending physician authorizing this order->KELSEY CARCAMO Is the patient being admitted to labor and delivery in active labor?->No Does the patient fit any of these categories? (select all that apply)->None of the above us Grace Payan DO BODY FLUIDS AND STOOLS ORDERA BLES Final Result Performing Organization Address [facility] Co de Phone Number [facility] [address] [place] [address] * ECG 12 lead (MUSE) (03/17/2022 3:37 AM EDT) 03/17/2022 3:37 AM EDT Narrative MUSE - 03/17/2022 5:47 PM EDT Ventricular Rate: ??81 ??BPM Atrial Rate: ??81 ??BPM P-R Interval: ??206 ??ms QRS Duration: ??116 ??ms QT: ??436 ??ms QTc: ??506 ??ms R Atlantic: ??143 ??degrees T Atlantic: ??-31 ??degrees Diagnosis Line: ??NORMAL SINUS RHYTHM ^ LEFT POSTERIOR HEMIBLOCK ^ POSSIBLE INFERIOR INFARCT (CITED ON OR BEFORE 17-MAR-2022) ^ CANNOT RULE OUT ANTERIOR INFARCT , AGE UNDETERMINED ^ PROLONGED QT ^ ABNORMAL ECG ^ COMPARED TO THE ECG OF 31-OCT-2021 09:47, ^ LEFT POSTERIOR HEMIBLOCK IS NOW PRESENT ^ QUESTIONABLE CHANGE IN INITIAL FORCES OF INFERIOR LEADS ^ T WAVE INVERSION LESS EVIDENT IN INFERIOR LEADS ^ T WAVE INVERSION NO LONGER EVIDENT IN LATERAL LEADS ^ Confirmed by MD MIGUEL, ANA ([id number]) on 03/17/2022 5:46:58 PM us Grace Payan DO ECG ORDERABLES Final Result Performing Organization Address City/[facility]/ZIP Co de Phone Number MUSE * (ABNORMAL) Protime-INR (03/16/2022 11:34 PM EDT) Pathologist [facility] Protime 15.7(H) 12.1 - 15.1 seconds 03/17/2022 12:15 AM EDT [facility]ALTH LAB INR 1.2(H) 0.9 - 1.1 03/17/2022 12:15 AM EDT [facility]ALTH LAB Comment: RECOMMENDED THERAPEUTIC RANGES USING INR : ?Stable oral anticoagulant therapy: ? 2.0 - 3.0 ?Mechanical prosthetic heart valve: ? 2.5 - 3.5 ?Recurrent acute myocardial infarction: ? 2.5 - 3.5 Plasma 03/16/2022 11:3 4 PM EDT 03/16/2022 11:52 PM EDT Grace Payan DO LAB BLOOD ORDERABLES Final Re sult Performing Organization Address City/State/[facility] Co de Phone Number [facility] [address] * (ABNORMAL) Hepatic Function Panel (03/16/2022 11:34 PM EDT) Pathologist [facility] Total Bilirubin 0.6 0.0 - 1.5 mg/dL 03/17/2022 12:22 AM EDT [facility] Bilirubin, Direct 0.23 0.00 - 0.40 mg/dL 03/17/2022 12:22 AM EDT [facility] AST 12(L) 13 - 39 U/L 03/17/2022 12:22 AM EDT [facility] ALT 8 7 - 52 U/L 03/17/2022 12:22 AM EDT [facility] Alkaline Phosphatase 74 36 - 125 U/L 03/17/2022 12:22 AM EDT [facility] Total Protein 6.9 6.4 - 8.9 g/dL 03/17/2022 12:22 AM EDT [facility] Albumin 4.4 3.5 - 5.7 g/dL 03/17/2022 12:22 AM EDT [facility] Bilirubin, Indirect 0.37 0.00 - 1.10 mg/dL 03/17/2022 12:22 AM EDT [facility] Plasma 03/16/2022 11:3 4 PM EDT 03/16/2022 11:52 PM EDT Grace Payan DO LAB BLOOD ORDERABLES Final Re sult [facility] [address] * Magnesium (03/16/2022 11:34 PM EDT) Magnesium 1.8 1.5 - 2.5 mg/dL 03/17/2022 12:22 AM EDT [facility] Plasma 03/16/2022 11:3 4 PM EDT 03/16/2022 11:52 PM EDT Grace Payan DO LAB BLOOD ORDERABLES Final Re sult Performing Organization Address City/[facility]/ZIP Co de Phone Number [facility] [address] * (ABNORMAL) Renal Function Panel w/EGFR (03/16/2022 11:34 PM EDT) Sodium 140 133 - 146 mmol/L 03/17/2022 12:22 AM EDT [facility] Potassium 4.1 3.5 - 5.3 mmol/L 03/17/2022 12:22 AM EDT [facility] Chloride 97(L) 98 - 110 mmol/L 03/17/2022 12:22 AM EDT [facility] CO2 29 21 - 33 mmol/L 03/17/2022 12:22 AM EDT [facility] Anion Gap 14 3 - 16 mmol/L 03/17/2022 12:22 AM EDT [facility] BUN 48(H) 7 - 25 mg/dL 03/17/2022 12:22 AM EDT [facility] Creatinine 7.83(H) 0.60 - 1.30 mg/dL 03/17/2022 12:22 AM EDT [facility] Glucose 111(H) 70 - 100 mg/dL 03/17/2022 12:22 AM EDT [facility] Calcium 9.1 8.6 - 10.3 mg/dL 03/17/2022 12:22 AM EDT [facility] Phosphorus 4.9(H) 2.1 - 4.7 mg/dL 03/17/2022 12:22 AM EDT [facility] Albumin 4.4 3.5 - 5.7 g/dL 03/17/2022 12:22 AM EDT [facility] Osmolality, Calculated 303 278 - 305 mOsm/kg 03/17/2022 12:22 AM EDT [facility] EGFR 8 03/17/2022 12:22 AM EDT [facility] Comment:As of 2021, the estimated [...] Disease. Am J Kidney Dis. 2020. Plasma 03/16/2022 11:3 4 PM EDT 03/16/2022 11:52 PM EDT us Grace Payan DO LAB BLOOD ORDERABLES Final Re sult [facility] [address] [place] [address], [facility] * (ABNORMAL) CBC (03/16/2022 11:34 PM EDT) WBC 3.5(L) 3.8 - 10.8 10E3/uL 03/16/2022 11:59 PM EDT [facility] RBC 2.55(L) 4.20 - 5.80 10E6/uL 03/16/2022 11:59 PM EDT [facility] Hemoglobin 8.6(L) 13.2 - 17.1 g/dL 03/16/2022 11:59 PM EDT [facility] Hematocrit 26.2(L) 38.5 - 50.0 % 03/16/2022 11:59 PM EDT [facility] MCV 102.4(H) 80.0 - 100.0 fL 03/16/2022 11:59 PM EDT [facility] MCH 33.9(H) 27.0 - 33.0 pg 03/16/2022 11:59 PM EDT [facility] MCHC 33.0 32.0 - 36.0 g/dL 03/16/2022 11:59 PM EDT [facility] RDW 14.4 11.0 - 15.0 % 03/16/2022 11:59 PM EDT [facility] Platelets 172 140 - 400 10E3/uL 03/16/2022 11:59 PM EDT [facility] MPV 7.2(L) 7.5 - 11.5 fL 03/16/2022 11:59 PM EDT [facility] Whole Blood 03/16/2022 11:3 4 PM EDT 03/16/2022 11:51 PM EDT us Grace Payan DO LAB BLOOD ORDERABLES Final Re sult [facility] [address] [place] [address], [facility] * EKG - SCAN (03/16/2022) us Scanning Uchhim SCAN DOCS - NO RESULTS Final Res ult documented in this encounter Visit Diagnoses Diagnosis Hematochezia- Primary Blood in stool Hematochezia Blood in stool Right heart enlargement Cardiomegaly [place]D (end stage renal disease) [place] [place] End stage renal disease Anemia, unspecified type Acute on chronic heart failure with preserved ejection fraction [place] [place] Encounter for extracorporeal dialysis 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, 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 [place] [place] Hypertensive heart disease with congestive heart failure, unspecified heart failure type [place] [place] LVH (left ventricular hypertrophy) Cardiomegaly Pre-transplant evaluation for kidney transplant Class 3 severe obesity with serious comorbidity and body mass index (BMI) of 40.0 to 44.9 in adult, unspecified obesity type [place] documented in this encounter Admitting Diagnoses Diagnosis Hematochezia Blood in stool documented in this encounter Administered Medications Inactive Administered Medications - up to 3 most recent administrations Medication Order MAR Action Action Date Dose Rate Site acetaminophen (TYLENOL) 325 MG tablet Starting on Mon03/22/22 at 1141, For 1 dose, Created by cabinet paradiseide acetaminophen (TYLENOL) tablet 650 mg 650 mg, Oral, Every 8 hours PRN, moderate pain (NRS-4-6), Fever, Starting on Mon03/17/22 at 0139, Maximum dose of acetaminophen is 4000 mg (4 grams) from all sources in 24 hours. Given 03/17/2022 12:51 PM EDT 650 mg acetaminophen (TYLENOL) tablet 650 mg 650 mg, Oral, Every 4 hours PRN, mild pain (NRS 1-3), Starting on Mon03/18/22 at 1114, Maximum dose of acetaminophen is 4000 mg (4 grams) from all sources in 24 hours., Post-Procedure(Invasive Cardiology) Given 03/25/2022 12:51 AM EDT 650 mg Given 03/22/2022 11:42 AM EDT 650 mg Given 03/22/2022 4:27 AM EDT 650 mg bisacodyL (DULCOLAX) EC tablet 10 mg 10 mg, Oral, Once, On Mon03/22/22 at 1530, For 1 dose Given 03/22/2022 4:29 PM EDT 10 mg calcium acetate(phosphat bind) (PHOSLO) capsule 667 mg 667 mg, Oral, 3 times daily with meals, First dose on Mon03/17/22 at 0800 Given 03/22/2022 8:42 AM EDT 667 mg Given 03/21/2022 4:52 PM EDT 667 mg Given 03/21/2022 12:18 PM EDT 667 mg carBAMazepine (TEGRETOL) tablet 200 mg 200 mg, Oral, 2 times daily PRN, Other, Neuropathic pain, Starting on Bobbi 03/17/22 at 0005 Given 03/19/2022 11:34 PM EDT 200 mg carBAMazepine (TEGRETOL) tablet 200 mg 200 mg, Oral, 2 times daily, First dose (after last modification) on Mon03/20/22 at 1100 Given 03/25/2022 11:24 AM EDT 200 mg Given 03/24/2022 9:58 PM EDT 200 mg Given 03/24/2022 12:18 PM EDT 200 mg carvediloL (COREG) tablet 12.5 mg 12.5 mg, Oral, Once, On Mon03/18/22 at 1730, For 1 dose, Therapeutic Interchange: carvedilol (COREG CR) tablet 40 mg daily = carvedilol (COREG) 12.5 mg BID Given 03/18/2022 5:45 PM EDT 12.5 mg carvediloL (COREG) tablet 12.5 mg 12.5 mg, Oral, 2 times daily with meals, First dose (after last modification) on Mon03/19/22 at 0800, Therapeutic Interchange: carvedilol (COREG CR) tablet 40 mg daily = carvedilol (COREG) 12.5 mg BID Given 03/25/2022 11:24 AM EDT 12.5 mg Given 03/24/2022 5:44 PM EDT 12.5 mg Given 03/24/2022 12:18 PM EDT 12.5 mg cinacalcet (SENSIPAR) tablet 30 mg 30 mg, Oral, Daily with breakfast, First dose (after last modification) on Mon03/25/22 at 0800, SWALLOW WHOLE; DO NOT CRUSH OR CHEW Given 03/25/2022 11:24 AM EDT 3 0 mg cinacalcet (SENSIPAR) tablet 60 mg 60 mg, Oral, Daily with breakfast, First dose on Bobbi 03/17/22 at 0800, SWALLOW WHOLE; DO NOT CRUSH OR CHEW Given 03/24/2022 12:17 PM EDT 60 mg Given 03/23/2022 11:16 AM EDT 60 mg Given 03/22/2022 8:42 AM EDT 60 mg cycloSPORINE modified (NEORAL/GENGRAF) capsule 100 mg 100 mg, Oral, 2 times daily, First dose on Mon03/17/22 at 0030, LEVEL 2 HAZARDOUS MEDICATION Given 03/25/2022 11:23 AM EDT 100 mg Given 03/24/2022 9:59 PM EDT 100 mg Given 03/24/2022 12:18 PM EDT 100 mg dextrose 10%-water (D10W) IV soln 12.5 g, Intravenous, Every 15 min PRN, Low blood sugar, for glucose < 70 and alert but can not be corrected, orally or via feeding tube, Starting on Mon03/17/22 at 0139, Recheck blood sugar in 15 minutes and repeat treatment if glucose still < 70. For Smart Pump: Set volume to be infused; 125 ml for 12.5 grams or 250 mL for 25 grams. dextrose 10%-water (D10W) IV soln 25 g, Intravenous, Every 15 min PRN, Low blood sugar, for glucose < 70 and not alert, Starting on Mon03/17/22 at 0139, Recheck glucose in 15 minutes and repeat treatment if glucose still < 70. For Smart Pump: Set volume to be infused; 125 ml for 12.5 grams or 250 mL for 25 grams. entecavir (BARACLUDE) tablet 0.5 mg 0.5 mg, Oral, Every 7 days, First dose on Mon03/22/22 at 0900, ADMINISTER ON EMPTY STOMACH (2 HOURS BEFORE OR AFTER MEALS). LEVEL 2 HAZARDOUS MEDICATION Given 03/22/2022 10:10 AM EDT 0.5 mg epoetin giancarlo-epbx (RETACRIT) injection solution 5,000 Units 5,000 Units, Intravenous, Every Monday, Monday, Monday (Once per day on Mon), Indications: Anemia in Chronic Kidney Disease, First dose on Mon03/23/22 at 0900Indications:Anemia in Chronic Kidney Disease Given 03/25/2022 11:27 AM EDT 5,000 Units Given 03/23/2022 12:26 PM EDT 5,000 Units fenofibrate tablet 160 mg 160 mg, Oral, Daily, First dose on Mon03/17/22 at 0900, Therapeutic Interchange: fenofibrate, micronized (LOFIBRA) 134 mg capsule daily = fenofibrate (TRICOR) 160 mg tablet daily Given 03/25/2022 11:24 AM EDT 160 mg Given 03/24/2022 12:17 PM EDT 160 mg Given 03/23/2022 11:16 AM EDT 160 mg fentaNYL (SUBLIMAZE) injection 12.5 mcg 12.5 mcg, Intravenous, Once, On Mon03/18/22 at 0830, For 1 dose, HIGH ALERT MEDICATION Given 03/18/2022 8:14 AM EDT 12.5 mcg folic acid (FOLVITE) tablet 1 mg 1 mg, Oral, Daily, First dose on Mon03/17/22 at 0900 Given 03/25/2022 11:25 AM EDT 1 mg Given 03/24/2022 12:19 PM EDT 1 mg Given 03/23/2022 11:16 AM EDT 1 mg gabapentin (NEURONTIN) capsule 100 mg 100 mg, Oral, 3 times daily, First dose (after last modification) on Mon03/25/22 at 0900 Given 03/25/2022 11:24 AM EDT 100 mg gabapentin (NEURONTIN) capsule 800 mg 800 mg, Oral, 2 times daily, First dose on Mon03/17/22 at 0030 Given 03/24/2022 12:17 PM EDT 800 mg Given 03/24/2022 12:02 AM EDT 400 mg Given 03/23/2022 12:31 AM EDT 400 mg glucose chewable tablet 12 g 12 g, Oral, Every 15 min PRN, Low blood sugar, see admin instructions, Starting on Mon03/17/22 at 0139, TAKING PO: Patient has blood glucose between [...] (3 times per day), First dose on Mon03/22/22 at 1300 Given 03/24/2022 12:30 PM EDT 5,000 Units Righ t Arm hydrALAZINE (APRESOLINE) tablet 100 mg 100 mg, Oral, Every 8 hours scheduled (3 times per day), First dose on Mon03/18/22 at 1300 Given 03/25/2022 11:24 AM EDT 100 mg Given 03/25/2022 12:51 AM EDT 100 mg Given 03/24/2022 5:44 PM EDT 100 mg hydrOXYzine HCL (ATARAX) tablet 50 mg 50 mg, Oral, Once, On Mon03/18/22 at 1830, For 1 dose Given 03/18/2022 8:04 PM EDT 50 mg insulin lispro (humaLOG) injection 0-5 Units 0-5 Units, Subcutaneous, 3 times daily before meals, First dose on Mon03/18/22 at 1630, Low Dose HumaLOG insulin correction for patients requiring less than 40 units/day. For patients eating discrete meals. Blood glucose 150-199 mg/dL = 1 unit Blood glucose 200-249 mg/dL = 2 units Blood glucose 250-299 mg/dL = 3 units Blood glucose 300-349 mg/dL = 4 units Blood glucose greater than 349 mg/dL = 5 units Onset of action is rapid. Give dose 5-10 minutes before meal. Have meal at bedside. Given 03/24/2022 8:12 PM EDT 1 Units Right Arm Given 03/23/2022 9:18 PM EDT 1 Units Ri ght Arm Given 03/22/2022 5:54 PM EDT 1 Units Ri ght Arm insulin regular (HumuLIN R) injection Soln 0-5 Units 0-5 Units, Subcutaneous, Every 6 hours scheduled, First dose on Mon03/17/22 at 0600, HIGH ALERT MEDICATION Given 03/18/2022 11:17 AM EDT 1 Units Abdo alice Tissue Given 03/17/2022 11:47 PM EDT 2 Units A bdominal Tissue isosorbide mononitrate (IMDUR) 24 hr tablet 60 mg 60 mg, Oral, Daily, First dose on Mon03/21/22 at 1100, DO NOT CRUSH Given 03/23/2022 11:16 AM EDT 60 mg Given 03/22/2022 8:42 AM EDT 60 mg Given 03/21/2022 12:17 PM EDT 60 mg isosorbide mononitrate (IMDUR) 24 hr tablet 90 mg 90 mg, Oral, Daily, First dose on Mon03/24/22 at 0930, DO NOT CRUSH Given 03/25/2022 11:24 AM EDT 90 mg Given 03/24/2022 12:18 PM EDT 90 mg labetaloL (NORMODYNE) injection 20 mg 20 mg, Intravenous, Once, On Mon03/18/22 at 1600, For 1 dose, If CMU is not available, then it is OK to administer IVP so long as BP and HR can be monitored every 1 hour. Given 03/18/2022 4:21 PM EDT 20 mg lisinopriL (PRINIVIL) tablet 40 mg 40 mg, Oral, Daily, First dose on Mon03/18/22 at 1430 Given 03/25/2022 11:24 AM EDT 40 mg Given 03/24/2022 12:18 PM EDT 40 mg Given 03/22/2022 8:41 AM EDT 40 mg magnesium oxide (MAG-OX) tablet 400 mg 400 mg, Oral, 2 times daily, First dose on Mon03/24/22 at 1130, For 4 doses Given 03/25/2022 11:24 AM EDT 400 mg Given 03/24/2022 9:59 PM EDT 400 mg Given 03/24/2022 12:19 PM EDT 400 mg methocarbamoL (ROBAXIN) tablet 500 mg 500 mg, Oral, 4 times daily before meals & nightly, First dose on Mon03/17/22 at 0030 Given 03/25/2022 11:24 AM EDT 5 00 mg Given 03/24/2022 9:59 PM EDT 500 mg Given 03/24/2022 5:45 PM EDT 500 mg metoprolol tartrate (LOPRESSOR) tablet 25 mg 25 mg, Oral, 2 times daily, First dose on Mon03/17/22 at 0900 Given 03/18/2022 10:01 AM EDT 25 mg Given 03/17/2022 8:40 PM EDT 25 mg Given 03/17/2022 8:58 AM EDT 25 mg midazolam (PF) (VERSED) injection 0.5 mg 0.5 mg, Intravenous, Once, On Mon03/18/22 at 0830, For 1 dose Given 03/18/2022 8:14 AM EDT 0.5 mg montelukast (SINGULAIR) tablet 10 mg 10 mg, Oral, Daily, First dose on Bobbi 03/17/22 at 0900 Given 03/25/2022 11:25 AM EDT 10 mg Given 03/24/2022 12:18 PM EDT 10 mg Given 03/23/2022 11:16 AM EDT 10 mg mycophenolate (CELLCEPT) capsule 250 mg 250 mg, Oral, 2 times daily, First dose on Bobbi 03/17/22 at 0030, LEVEL 2 HAZARDOUS MEDICATION Given 03/25/2022 11:25 AM EDT 250 mg Given 03/24/2022 9:59 PM EDT 250 mg Given 03/24/2022 12:17 PM EDT 250 mg NIFEdipine (PROCARDIA-XL) 24 hr tablet 90 mg 90 mg, Oral, Daily, First dose on Bobbi 03/17/22 at 0900, DO NOT CRUSH Given 03/17/2022 8:58 AM EDT 90 mg NIFEdipine (PROCARDIA-XL) 24 hr tablet 90 mg 90 mg, Oral, 2 times daily, First dose (after last modification) on Mon03/17/22 at 2100, DO NOT CRUSH Given 03/25/2022 11:24 AM EDT 90 mg Given 03/24/2022 9:59 PM EDT 90 mg Given 03/24/2022 12:17 PM EDT 90 mg ondansetron (ZOFRAN) injection 4 mg 4 mg, Intravenous, Once, On Mon03/17/22 at 0730, For 1 dose Given 03/17/2022 7:32 AM EDT 4 mg ondansetron (ZOFRAN) injection 4 mg 4 mg, Intravenous, Once, On Mon03/18/22 at 0200, For 1 dose Given 03/18/2022 2:24 AM EDT 4 mg oxyCODONE-acetaminophen (PERCOCET) 5-325 mg per tablet 1 tablet 1 tablet, Oral, Every 4 hours PRN, severe pain (NRS 7-10), Starting on Mon03/18/22 at 1114, Maximum dose of acetaminophen is 4000 mg (4 grams) from all sources in 24 hours., Post-Procedure(Invasive Cardiology) Given 03/24/2022 10:06 PM EDT 1 tablet Given 03/24/2022 4:20 PM EDT 1 tablet Given 03/24/2022 12:24 PM EDT 1 tablet pantoprazole (PROTONIX) EC tablet 40 mg 40 mg, Oral, 2 times daily, First dose on Mon03/23/22 at 2100, Do Not Crush Given 03/25/2022 11:24 AM EDT 40 mg Given 03/24/2022 9:59 PM EDT 40 mg Given 03/24/2022 12:18 PM EDT 40 mg pantoprazole (PROTONIX) injection 40 mg 40 mg, Intravenous, Two times a day, First dose on Mon03/16/22 at 2330, Dilute each 40 mg vial with 10 mL of Normal Saline Given 03/23/2022 6:05 AM EDT 40 mg Given 03/22/2022 4:47 PM EDT 40 mg Given 03/22/2022 4:28 AM EDT 40 mg peppermint oiL liquid 1 mL 1 mL, MISCELLANEOUS, As needed, Nausea and/or Vomiting, Starting on Mon03/17/22 at 0834 polyethylene glycol (GoLYTELY) solution 2,000 mL 2,000 mL, Oral, Once, On Mon03/16/22 at 2200, For 1 dose, Nursing: Patient to drink 1/2 bottle (2000 mL) starting at 1800 (on day prior to procedure). Instruct patient to drink approximately 8 ounces every 10 to 15 minutes) Given 03/17/2022 12:09 AM EDT 2,000 mLs polyethylene glycol (GoLYTELY) solution 2,000 mL 2,000 mL, Oral, Once, On Mon03/17/22 at 0100, For 1 dose, Nursing: Starting at 0100 (on day of procedure); Patient to drink 1/2 bottle (2000 mL) . Instruct patient to drink approximately 8 ounces every 10 to 15 minutes) Given 03/17/2022 1:10 AM EDT 2,000 mLs polyethylene glycol (GoLYTELY) solution 2,000 mL 2,000 mL, Oral, Once, On Mon03/17/22 at 1830, For 1 dose, Nursing: Patient to drink 1/2 bottle (2000 mL) starting at 1800 (on day prior to procedure). Instruct patient to drink approximately 8 ounces every 10 to 15 minutes) Given 03/17/2022 8:45 PM EDT 2,000 mLs polyethylene glycol (MIRALAX) packet 238 g 238 g, Oral, Daily, First dose on Mon03/22/22 at 1600, Mix with 64oz of fluid. Drink halve at 5pm and the other half at 2am day of procedure. Given 03/24/2022 12:25 PM EDT 238 g Given 03/22/2022 4:31 PM EDT 238 g sevelamer carbonate (RENVELA) tablet 1,600 mg 1,600 mg, Oral, 3 times daily with meals, First dose on Mon03/17/22 at 0800, DO NOT ADMINISTER VIA FEEDING TUBE Given 03/25/2022 11:24 AM EDT 1,600 mg Given 03/24/2022 5:45 PM EDT 1,600 mg Given 03/24/2022 12:19 PM EDT 1,600 mg sodium chloride 0.9 % infusion 50 mL/hr, Intravenous, Continuous, Starting on Mon03/23/22 at 0830, Pre-procedure(GI) sodium chloride flush 10 mL 10 mL, Intravenous, Every Shift, First dose on Bobbi 03/17/22 at 0500 Given 03/25/2022 1:48 PM EDT 10 mLs Given 03/25/2022 4:44 AM EDT 10 mLs Given 03/24/2022 10:00 PM EDT 10 mLs terazosin (HYTRIN) capsule 10 mg 10 mg, Oral, At Bedtime (2100), First dose on Bobbi 03/17/22 at 0030, Therapeutic Interchange: doxazosin (CARDURA) 8 mg daily = terazosin (HYTRIN) 10 mg daily Given 03/24/2022 9:58 PM EDT 10 mg Given 03/23/2022 9:27 PM EDT 10 mg Given 03/22/2022 8:58 PM EDT 10 mg documented in this encounter Active and Recently Administered Medications Times are shown in EDT. Scheduled Medication Order 03/23/2022 03/24/2022 03/25/2022 carBAMazepine (TEGRETOL) tablet 200 mg 200 mg, Oral, 2 times daily, First dose (after last modification) on 03/20/22 at 1100 1116 (Given - Provider: Earnest Plummer RN)2123 (Given - Provider: Yareli Dominguez RN) 1218 (Given - Provider: Rnee Haas, JANA)2158 (Given - Provider: Yareli Dominguez, JANA) 1124 (Given - Provider: Noel Moralez, JANA) carvediloL (COREG) tablet 12.5 mg 12.5 mg, Oral, 2 times daily with meals, First dose (after last modification) on 03/19/22 at 0800, Therapeutic Interchange: carvedilol (COREG CR) tablet 40 mg daily = carvedilol (COREG) 12.5 mg BID 1116 (Given - Provider: Earnest Plummer RN)1730 (Given - Provider: Earnest Plummer RN) 1218 (Given - Provider: Rene Haas, RN)1744 (Given - Provider: Rene Haas, JANA) 1124 (Given - Provider: Noel Moralez, JANA) cinacalcet (SENSIPAR) tablet 30 mg 30 mg, Oral, Daily with breakfast, First dose (after last modification) on Mon03/25/22 at 0800, SWALLOW WHOLE; DO NOT CRUSH OR CHEW 1124 (Given - Provider: Noel Moralez, JANA) cinacalcet (SENSIPAR) tablet 60 mg (CANCELED) 60 mg, Oral, Daily with breakfast, First dose on Mon03/17/22 at 0800, SWALLOW WHOLE; DO NOT CRUSH OR CHEW 1116 (Given - Provider: Earnest Plummer RN) 121 (Given - Provider: Rene Haas, JANA) cycloSPORINE modified (NEORAL/GENGRAF) capsule 100 mg 100 mg, Oral, 2 times daily, First dose on Mon03/17/22 at 0030, LEVEL 2 HAZARDOUS MEDICATION 111 (Hold - Provider: Earnest Plummer RN - Reason: Transfer to a Procedural area)2123 (Given - Provider: Yareli Dominguez, JANA) 121 (Given - Provider: Rene Haas, JANA)2158 (Given - Provider: Yareli Dominguez, JANA) 112 (Given - Provider: Noel Moralez, JANA) entecavir (BARACLUDE) tablet 0.5 mg 0.5 mg, Oral, Every 7 days, First dose on Mon03/22/22 at 0900, ADMINISTER ON EMPTY STOMACH (2 HOURS BEFORE OR AFTER MEALS). LEVEL 2 HAZARDOUS MEDICATION epoetin giancarlo-epbx (RETACRIT) injection solution 5,000 Units 5,000 Units, Intravenous, Every Monday, Monday, Monday (Once per day on Mon), Indications: Anemia in Chronic Kidney Disease, First dose on Mon03/23/22 at 0900 1226 (Given - Provider: Earnest Plummer RN) 1127 (Given - Provider: Noel Moralez, JANA) fenofibrate tablet 160 mg 160 mg, Oral, Daily, First dose on Mon03/17/22 at 0900, Therapeutic Interchange: fenofibrate, micronized (LOFIBRA) 134 mg capsule daily = fenofibrate (TRICOR) 160 mg tablet daily 1116 (Given - Provider: Earnest Plummer RN) 1217 (Given - Provider: Rene Haas, JANA) 1124 (Given - Provider: Noel Moralez, JANA) folic acid (FOLVITE) tablet 1 mg 1 mg, Oral, Daily, First dose on Mon03/17/22 at 0900 1116 (Given - Provider: Earnest Plummer RN) 1219 (Given - Provider: Rene Haas RN) 1125 (Given - Provider: Noel Moralez, JANA) gabapentin (NEURONTIN) capsule 100 mg 100 mg, Oral, 3 times daily, First dose (after last modification) on Mon03/25/22 at 0900 1124 (Given - Provider: Noel Moralez, JANA)1300 (Due) gabapentin (NEURONTIN) capsule 800 mg (CANCELED) 800 mg, Oral, 2 times daily, First dose on Mon03/17/22 at 0030 0031 (Given - Provider: Yareli Dominguez RN - Comment: patient request only 400 mg)1219 (Not Given - Provider: Earnest Plummer RN - Reason: Patient/family refused) 0002 (Given - Provider: Yareli Dominguez RN - Comment: patient request half dose)1217 (Given - Provider: Rene Haas RN) heparin (porcine) injection 5,000 Units 5,000 Units, Subcutaneous, Every 8 hours scheduled (3 times per day), First dose on Mon03/22/22 at 1300 0605 (Not Given - Provider: Yareli Dominguez RN - Reason: Patient/family refused)1243 (Not Given - Provider: Earnest Plummer RN - Reason: Patient/family refused)2127 (Not Given - Provider: Yareli Dominguez RN - Reason: Patient/family refused) 0630 (Not Given - Provider: Yareli Dominguez RN - Reason: Patient/family refused)1230 (Given - Provider: Rene Haas, JANA)2200 (Not Given - Provider: Yareli Dominguez RN - Reason: Patient/family refused) 0444 (Not Given - Provider: Yodit Hernandez RN - Reason: Patient/family refused)1124 (Not Given - Provider: Noel Moralez RN - Reason: Patient/family refused) hydrALAZINE (APRESOLINE) tablet 100 mg 100 mg, Oral, Every 8 hours scheduled (3 times per day), First dose on Mon03/18/22 at 1300 0031 (Given - Provider: Yareli Dominguez RN)1116 (Hold - Provider: Earnest Plummer RN - Reason: Transfer to a Procedural area)1730 (Given - Provider: Earnest Plummer RN) 0002 (Given - Provider: Yareli Dominguez RN)1230 (Given - Provider: Rene Haas RN)1744 (Given - Provider: Rene Haas RN) 0051 (Given - Provider: Yodit Hernandez RN)1124 (Given - Provider: Noel Moralez, JANA) insulin lispro (humaLOG) injection 0-5 Units 0-5 Units, Subcutaneous, 3 times daily before meals, First dose on Mon03/18/22 at 1630, Low Dose HumaLOG insulin correction for patients requiring less than 40 units/day. For patients eating discrete meals. Blood glucose 150-199 mg/dL = 1 unit Blood glucose 200-249 mg/dL = 2 units Blood glucose 250-299 mg/dL = 3 units Blood glucose 300-349 mg/dL = 4 units Blood glucose greater than 349 mg/dL = 5 units Onset of action is rapid. Give dose 5-10 minutes before meal. Have meal at bedside. 1058 (Not Given - Provider: Earnest Plummer RN - Reason: NPO)1220 (Not Given - Provider: Earnest Plummer RN - Reason: Other - Comment: Pt already ate and blood sugar at 161)1723 (Not Given - Provider: Earnest Plummer RN - Reason: Order parameters not met)2118 (Given - Provider: Yareli Dominguez RN) 1001 (Not Given - Provider: Krzysztof Diop RN - Reason: Order parameters not met - Comment: Patient not eating during dialysis)1220 (Not Given - Provider: Rene Haas RN - Reason: Order parameters not met)1832 (Canceled Entry - Provider: Rene Haas RN)2011 (Given - Provider: Yareli Dominguez RN - Comment: patient eating dinner) 1121 (Not Given - Provider: Noel Moralez RN - Reason: Order parameters not met)1130 (Due) isosorbide mononitrate (IMDUR) 24 hr tablet 60 mg (CANCELED) 60 mg, Oral, Daily, First dose on Mon03/21/22 at 1100, DO NOT CRUSH 1116 (Given - Provider: Earnest Plummer RN) isosorbide mononitrate (IMDUR) 24 hr tablet 90 mg 90 mg, Oral, Daily, First dose on Mon03/24/22 at 0930, DO NOT CRUSH 1218 (Given - Provider: Rene Haas RN) 1124 (Given - Provider: Noel Moralez, JANA) lisinopriL (PRINIVIL) tablet 40 mg 40 mg, Oral, Daily, First dose on Mon03/18/22 at 1430 1120 (Hold - Provider: Earnest Plummer RN - Reason: Transfer to a Procedural area) 1218 (Given - Provider: Rene Haas RN) 1124 (Given - Provider: Noel Moralez, JANA) magnesium oxide (MAG-OX) tablet 400 mg 400 mg, Oral, 2 times daily, First dose on Mon03/24/22 at 1130, For 4 doses 1219 (Given - Provider: Rene Haas RN)2159 (Given - Provider: Yareli Dominguez RN) 1124 (Given - Provider: Noel Moralez, JANA) methocarbamoL (ROBAXIN) tablet 500 mg 500 mg, Oral, 4 times daily before meals & nightly, First dose on Mon03/17/22 at 0030 1103 (Not Given - Provider: Earnest Plummer RN - Reason: Transfer to a Procedural area)1116 (Given - Provider: Earnest Plummer RN)1730 (Given - Provider: Earnest Plummer RN)2124 (Given - Provider: Yareli Dominguez RN) 0631 (Given - Provider: Yareli Dominguez, JANA)1219 (Given - Provider: Rene Haas, JANA)1745 (Given - Provider: Rene Haas, JANA)2159 (Given - Provider: Yareli Dominguez, JANA) 1124 (Given - Provider: Noel Moralez, JANA)1137 (Not Given - Provider: Noel Moralez RN - Reason: Other - Comment: skipped first dose due to dialysis) montelukast (SINGULAIR) tablet 10 mg 10 mg, Oral, Daily, First dose on Mon03/17/22 at 0900 1116 (Given - Provider: Earnest Plummer RN) 1218 (Given - Provider: Rene Haas, JANA) 112 (Given - Provider: Noel Moralez, JANA) mycophenolate (CELLCEPT) capsule 250 mg 250 mg, Oral, 2 times daily, First dose on Mon03/17/22 at 0030, LEVEL 2 HAZARDOUS MEDICATION 1116 (Given - Provider: Earnest Plummer RN)2122 (Given - Provider: Yareli Dominguez RN) 121 (Given - Provider: Rene Haas RN)2158 (Given - Provider: Yareli Dominguez, JANA) 112 (Given - Provider: Noel Moralez, JANA) NIFEdipine (PROCARDIA-XL) 24 hr tablet 90 mg 90 mg, Oral, 2 times daily, First dose (after last modification) on Mon03/17/22 at 2100, DO NOT CRUSH 1120 (Hold - Provider: Earnest Plummer RN - Reason: Transfer to a Procedural area)2124 (Given - Provider: Yareli Dominguez RN) 121 (Given - Provider: Rene Haas RN)2158 (Given - Provider: Yareli Dominguez RN) 112 (Given - Provider: Noel Moralez, JANA) pantoprazole (PROTONIX) EC tablet 40 mg 40 mg, Oral, 2 times daily, First dose on Mon03/23/22 at 2100, Do Not Crush 2123 (Given - Provider: Yareli Dominguez RN) 1217 (Given - Provider: Rene Haas RN)2158 (Given - Provider: Yareli Dominguez RN) 112 (Given - Provider: Noel Moralez, JANA) pantoprazole (PROTONIX) injection 40 mg (CANCELED) 40 mg, Intravenous, Two times a day, First dose on Mon03/16/22 at 2330, Dilute each 40 mg vial with 10 mL of Normal Saline 0605 (Given - Provider: Yareli Dominguez RN) polyethylene glycol (MIRALAX) packet 238 g 238 g, Oral, Daily, First dose on Mon03/22/22 at 1600, Mix with 64oz of fluid. Drink halve at 5pm and the other half at 2am day of procedure. 1120 (Not Given - Provider: Earnest Plummer RN - Reason: Patient/family refused) 1225 (Given - Provider: Rene Haas RN) 1123 (Not Given - Provider: Noel Moralez RN - Reason: Medication not available) sevelamer carbonate (RENVELA) tablet 1,600 mg 1,600 mg, Oral, 3 times daily with meals, First dose on Bobbi 03/17/22 at 0800, DO NOT ADMINISTER VIA FEEDING TUBE 1104 (Not Given - Provider: Earnest Plummer RN - Reason: Transfer to a Procedural area)1116 (Given - Provider: Earnest Plummer RN)1730 (Given - Provider: Earnest Plummer RN) 1219 (Given - Provider: Rene Haas RN)1221 (Not Given - Provider: Rene Haas RN - Reason: Patient/family refused)1745 (Given - Provider: Rene Haas RN) 1124 (Given - Provider: Noel Moralez, JANA)1137 (Not Given - Provider: Noel Moralez RN - Reason: Other - Comment: skipped first dose due to dialysis) sodium chloride flush 10 mL(Linked Group 1) 10 mL, Intravenous, Every Shift, First dose on Bobbi 03/17/22 at 0500 0605 (Given - Provider: Yareli Dominguez RN)1244 (Given - Provider: Earnest Plummer RN)2131 (Given - Provider: Yareli Dominguez RN) 0630 (Not Given - Provider: Yareli Dominguez RN - Reason: Patient/family refused)1221 (Not Given - Provider: Rene Haas RN - Reason: Patient/family refused)2200 (Given - Provider: Yareli Dominguez RN) 0444 (Given - Provider: Yodit Hernandez RN)1348 (Given - Provider: Noel Moralez, JANA) terazosin (HYTRIN) capsule 10 mg 10 mg, Oral, At Bedtime (2100), First dose on Bobbi 03/17/22 at 0030, Therapeutic Interchange: doxazosin (CARDURA) 8 mg daily = terazosin (HYTRIN) 10 mg daily 2126 (Given - Provider: Yareli Dominguez RN) 2158 (Given - Provider: Yareli Dominguez RN) Continuous Medication Order 03/23/2022 03/24/2022 03/25/2022 sodium chloride 0.9 % infusion 50 mL/hr, Intravenous, Continuous, Starting on Mon03/23/22 at 0830, Pre-procedure(GI) 1221 (Not Given - Provider: Earnest Plummer RN - Reason: Patient/family refused - Comment: contacted team) PRN Medication Order 03/23/2022 03/24/2022 03/25/2022 acetaminophen (TYLENOL) tablet 650 mg 650 mg, Oral, Every 4 hours PRN, mild pain (NRS 1-3), Starting on Mon03/18/22 at 1114, Maximum dose of acetaminophen is 4000 mg (4 grams) from all sources in 24 hours., Post-Procedure(Invasive Cardiology) 0051 (Given - Provid er: Yodit Hernandez RN) dextrose 10%-water (D10W) IV soln(Linked Group 2) 12.5 g, Intravenous, Every 15 min PRN, Low blood sugar, for glucose < 70 and alert but can not be corrected, orally or via feeding tube, Starting on Mon03/17/22 at 0139, Recheck blood sugar in 15 minutes and repeat treatment if glucose still < 70. For Smart Pump: Set volume to be infused; 125 ml for 12.5 grams or 250 mL for 25 grams. dextrose 10%-water (D10W) IV soln(Linked Group 2) 25 g, Intravenous, Every 15 min PRN, Low blood sugar, for glucose < 70 and not alert, Starting on Mon03/17/22 at 0139, Recheck glucose in 15 minutes and repeat treatment if glucose still < 70. For Smart Pump: Set volume to be infused; 125 ml for 12.5 grams or 250 mL for 25 grams. glucose chewable tablet 12 g 12 g, Oral, Every 15 min PRN, Low blood sugar, see admin instructions, Starting on Mon03/17/22 at 0139, TAKING PO: Patient has blood glucose between [...] not give chewable tablets via feeding tube oxyCODONE-acetaminophen (PERCOCET) 5-325 mg per tablet 1 tablet 1 tablet, Oral, Every 4 hours PRN, severe pain (NRS 7-10), Starting on Mon03/18/22 at 1114, Maximum dose of acetaminophen is 4000 mg (4 grams) from all sources in 24 hours., Post-Procedure(Invasive Cardiology) 0011 (Given - Provider: Yareli Dominguez RN)1224 (Given - Provider: Rene Haas, JANA)1620 (Given - Provider: Rene Haas RN)2206 (Given - Provider: Yareli Dominguez, JANA) peppermint oiL liquid 1 mL 1 mL, MISCELLANEOUS, As needed, Nausea and/or Vomiting, Starting on Mon03/17/22 at 0834 Linked Groups Order Group 1: Place saline lock (CANCELED) STAT, Once, On Mon03/16/22 at 2304, For 1 occurrence And sodium chloride flush 10 mLJump to med 10 mL, Intravenous, Every Shift, First dose on Mon03/17/22 at 0500 Group 2: dextrose 10%-water (D10W) IV solnJump to med 12.5 g, Intravenous, Every 15 min PRN, Low blood sugar, for glucose < 70 and alert but can not be corrected, orally or via feeding tube, Starting on Bobbi 03/17/22 at 0139, Recheck blood sugar in 15 minutes and repeat treatment if glucose still < 70. For Smart Pump: Set volume to be infused; 125 ml for 12.5 grams or 250 mL for 25 grams. Or dextrose 10%-water (D10W) IV solnJump to med 25 g, Intravenous, Every 15 min PRN, Low blood sugar, for glucose < 70 and not alert, Starting on Bobbi 03/17/22 at 0139, Recheck glucose in 15 minutes and repeat treatment if glucose still < 70. For Smart Pump: Set volume to be infused; 125 ml for 12.5 grams or 250 mL for 25 grams. documented in this encounter Additional Health Concerns Infection Onset Date Last Indicated Resolved Time Rule Out COVID-19 03/16/2022 03/17/2022 03/17/2022 9:55 AM EDT Assessment Noted Time PHQ-9 Depression Total Score: 0 12/06/19 18 3:00 PM EDT documented as of this encounter Care Teams Ready To Wear Department Manager Relationship Specialty Start Date End Date Edgar Fournier MD [address] [place] [address] [place] [phone] PCP - General 12/22/21 Maile Valles, RN Txp Post Coordinator Transplant Hepatology 11/07/17 Jack Ordoñez MD [address] [place] [phone] Consulting Physician Transplant Hepatology 01/05/18 Estephania Sharif, Wilbert Pharmacist Pharmacist 11/11/19 documented as of this encounter
--- OUTSIDE RECORDS SUMMARY | 2024-07-12 12:32 | XMS_ITS | Encounter Summary ---
Author Organization [facility] Address [facility] [place] [address] Care Team Providers Care Singe Winder Name Role Phone Maile Valles RN Unavailable Unavail able Jack Ordoñez MD Unavailable Estephania Sharif PharmD Unavailable Christine Edgar Tolentino MD Primary Care Provider [phone] Source Comments This information has been disclosed [...] release of HIV test results or diagnoses. [id number] Encounter Details Date Type Department Care Team (Latest Contact Info) Description 03/20/2022 Travel Social History Tobacco Use Types Packs/Day [...] Description 07/15/2024 9:00 AM EST Hospital Encounter [facility] Interventional Radiology [address] [place] [phone] Herve Carrillo MD [address] [facility] [address] [facility] [place] [phone] documented as of this encounter Visit Diagnoses Not on filedocumented in this encounter Additional Health Concerns Assessment Noted Time PHQ-9 Depression Total Score: 0 12/06/19 18 3:00 PM EDT documented as of this encounter Care Teams Singe Winder Relationship Specialty Start Date End Date Edgar Fournier MD [address] [place] [phone] PCP - General 12/22/21 Maile Valles, JANA Txp Post Coordinator Transplant Hepatology 11/07/17 Jack Ordoñez MD [address] [place] [phone] Consulting Physician Transplant Hepatology 01/05/18 Estephania Sharif, DarrianD Pharmacist Pharmacist 11/11/19 documented as of this encounter
--- OUTSIDE RECORDS SUMMARY | 2024-07-12 12:32 | XMS_ITS | Encounter Summary ---
Author Organization [facility] Address [address] [place] [address] Care Team Providers Care Graphic User Interface Designer Name Role Phone Maile Valles RN Unavailable Unavail able Jack Ordoñez MD Unavailable [phone] Estephania Sharif PharmD Unavailable Christine Edgar Tolentino MD Primary Care Provider [phone] Source Comments This information has been disclosed [...] release of HIV test results or diagnoses. [id number] Reason for Visit * Auth/Cert Specialty Diagnoses / Procedures Referred By Contac t Referred To Contact Transplant Diagnoses Abdominal pain Abd pain 789.00 (ICD-9-CM) - R10.9 (ICD-10-CM) - Abdominal pain Procedures IP ADMIT [facility] [id number] [place] [address] Phone: tel: Referral ID Status Reason Start Date Expiration Date Visits Re quested Visits Authorized [id number] 1 1 Encounter Details Date Type Department Care Team (Late st Contact Info) Description 03/23/2022 9:00 AM EDT - 03/23/2022 10:00 AM EDT Surgery [facility] ENDOSCOPY [address] [place] [address] Roxnan Moore MD EGD WITH BIOPSY Surgery Details Date/Time Status Location OR Service Patient Class Case Class Case Type Trauma Case? 03/23/2022 9:00 AM Posted ENDOSCOPY E2 Gastroenterology Inpatient Combo Panel 1 Procedure LRB Anes Op Region Wound Class Comments EGD WITH BIOPSY N/A MAC (Monitor Anesthesia Care) Clean Contaminated COLONOSCOPY WITH BIOPSY N/A MAC (Monitor Anesthesia Care) Clean Contaminated Surgeon Surgeon Role Service Panel Roxann Moore MD Primary Gastroenterology 1 documented in this [...] Sign Reading Time Taken Comments Blood Pressure 141/76 03/23/2022 10:00 AM EDT Pulse 72 03/23/2022 8:20 AM EDT Temperature 36.6 ??C (97.8 ??F) 03/23/2022 9:40 AM ED T Respiratory Rate 16 03/23/2022 10:00 AM EDT Oxygen Saturation 97% 03/23/2022 10:00 AM EDT Inhaled Oxygen Concentration 97% 03/23/2022 1 0:00 AM EDT Weight 137.4 kg (303 lb) 03/23/2022 8:20 AM EDT Height 175.3 cm (5' 9 ) 03/23/2022 8:20 AM EDT Body Mass Index 43.59 03/23/2022 8:20 AM EDT documented in this encounter Discharge Summaries * Shirley Jaimes DO - 03/25/2022 12:39 PM EDT [facility] Inpatient Discharge Summary Patient: Leoncio Rollins Jr. Age: 47 y.o. CSN: [id number] Date of Admission: 03/16/2022 Date of Discharge: [...] Case IDs Date Procedure Surgeon Location Status [id number] 03/18/22 EGD WITH BIOPSY Kelsey Carcamo MD ENDOSCOPY Can [id number] 03/18/22 RIGHT HEART CATH Olievr Reed MD CARDIAC CATH LABS Comp [id number] 03/23/22 EGD WITH BIOPSY Roxann Moore MD [...] Your Medications These medications were sent to [facility] [address] [place] [address] Hours: Monday - Monday: 8:00AM - 6:00PM [...] male with PMH of OLT in 2018 09/15 SAL cirrhosis, ESRD on HD MWF, HFmEF [...] Center 04/12/2022 1:00 PM Nadya Wilhelm, PhD, EVP AND CHIEF OPERATING OFFICER-S UCP TRIM MAB MAB No follow-up provider specified. [...] noted below: Note: This information is for [facility] Scheduling use only. It is not [...] 1:20 PM EDT Thank you for choosing [facility]! You were treated for Volume overload, GI [...] mg daily, lisinopril 40 mg daily, and [id number] mg twice daily. Your scheduled follow-up appointments are listed below. For any follow-up visits that have not beenscheduled yet, when our primary care coordinator is able to schedule them (usually within the next week), you will receive a call with those confirmed details. Future Appointments Date Time Provider Department Center 04/12/2022 1:00 PM Nadya Wilhelm, PhD, EVP AND CHIEF OPERATING OFFICER-S [employer]CP TRIM MAB MAB Please also follow-up [...] Admission Diagnosis: Hematochezia [K92.1] Date: 03/25/2022 Room: [address] [place] [address] Reviewed Pertinent hospital course: Yes Hospital Course PT/OT: 47 yo M presented to an OSH with complaint of blood in stool. CT performed at the OSH suggestive of PUD, also with hepatomegaly, periportal edema, and splenomegaly with EV and minimal ascites. Found to be hypertensive in ED. Transferred to [facility] for further evaluation, concernfor rejection and [...] TYMPANOSTOMY TUBE PLACEMENT 07/2020 Cosigned by Gem Abarca PT at 03/25/2022 3:51 PM EDT Associated attestation - Gem Abarca PT - 03/25/2022 3:51 PM EDT I have reviewed this note agree with all documentation, assessment, and plan of care. Gem Abarca, PT, DPT [facility] Re[facility] Hours: M-F [id number] Department Phone #: [phone] * Noel Moralez RN - 03/25/2022 2:48 [...] - Left AVF - Dr Enrique Albright [facility] Reportedly nearly completed his last HD [...] questions. Stephan Sequeira Nephrology fellow Pager #: [phone] Reason for Consult ESRD on HD Chief Complaint No chief complaint on file. History of Present Illness Leoncio Rollins Jr. is a pleasant 47 y.o. 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 Patient presented on 03/16/2022 with GIB early [...] , Dariela Wood MD, 12.5 mg at 03/25/22 1124 ??? cinacalcet (SENSIPAR) tablet 30 mg, 30 mg, Oral, Daily with breakfast, Ky Hills MD, 30 mg at 03/25/22 1124 ??? cycloSPORINE modified (NEORAL/GENGRAF) capsule 100 mg, 100 mg, Oral, BID, Grace Payan DO, 100 mg at 03/25/22 1123 ??? dextrose 10%-water (D10W) IV soln, 12.5 g, Intravenous, Q15 Min PRN OR dextrose 10%-water (D10W) IV soln, 25 g, Intravenous, Q15 Min PRN, Grace Payan DO ??? entecavir (BARACLUDE) tablet 0.5 mg, 0.5 mg, Oral, Q7 Days, Irina Craven MD, 0.5 mg at 010 ??? epoetin giancarlo-epbx (RETACRIT) injection solution 5,000 [...] day, Sherly Hawkins MD, 100 mg at 03/25/22 1124 ??? insulin lispro (humaLOG) injection 0-5 Units, 0-5 Units, Subcutaneous, TID AC, Dariela Wood MD, 1 Units at 03/24/222011 ??? isosorbide mononitrate (IMDUR) 24 hr tablet 90 mg, 90 mg, Oral, Daily 0900, Laura Gonzalez MD, 90 mg at 03/25/221123 ??? lisinopriL (PRINIVIL) tablet 40 mg, 40 mg, Oral, Daily 0900, Sherly Hawkins MD, 40 mg at 03/25/22 1124 ??? magnesium oxide (MAG-OX) tablet 400 mg, 400 mg, Oral, BID, Laura Gonzalez MD, 400 mg at 03/25/22 1124 ? ? methocarbamoL (ROBAXIN) tablet 500 mg, 500 mg, Oral, 4x Daily AC & HS, Grace Payan DO,500 mg at 03/25/22 1124 ??? montelukast (SINGULAIR) tablet 10 mg, 10 mg, Oral, Daily 0900, Grace Payan DO, 10 mg at 03/25/22 1125 ??? mycophenolate (CELLCEPT) capsule 250 mg, 250 mg, Oral, BID, Grace Payan DO, 250 mg at 03/25/22 1125 ??? NIFEdipine (PROCARDIA-XL) 24 hr tablet 90 mg, 90 mg, Oral, BID, Neyda Espinoza MD, 90 mg at 03/25/22 112 ??? oxyCODONE-acetaminophen (PERCOCET) 5-325 mg per tablet 1 tablet, 1 tablet, Oral, Q4H PRN, Gabriel Booth MD, 1 tablet at 03/24/22 2206 ??? pantoprazole (PROTONIX) EC tablet 40 mg, [...] mg, 10 mg, Oral, Nightly (2100), Grace Schuyler, DO, 10 mg at 03/24/22 2158 Current [...] baseline. Laboratory Date Recent Labs 03/23/22 0503/24/22 0703/25/22 0732 WBC 3.1* 2.8* 2.9* HGB 9.0* [...] ANIONGAP 11 12 11 Recent Labs 03/23/22 0503/24/22 0739 03/25/22 0732 CALCIUM 8.4* 8.0* 8.1* PHOS 3.6 3.9 3.7 Lab Results Component Value Date IRON 29 (L) 10/31/2021 TIBC 247 (L) 10/31/2021 FERRITIN 826.6 (H) 10/31/2021 Lab Results Component Value Date [id number] 325 03/24/2022 Lab Results Component Value Date [...] CO2UR, CRUR No results found for: MICROALBUR, [id number] In addition to the above an extensive [...] WHO II Pulm HTN, MRSA vertebral osteomyelitis (2020), and PUD who is on hospital day [...] on a Protonix drip, and transferred to [facility] for further evaluation. Upon presentation to [facility], workup for peptic ulcer disease vs [...] 160 03/24/2022 Older/other lab results reviewed in [facility] Micro/Infection No new micro/infection studies to review All older studies personally reviewed in [facility] Diagnostic Imaging No new imaging to review All older imaging personally reviewed in [facility] Medications Scheduled Meds: ??? 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 Stephan Sequeira Nephrology fellow Pager #: [phone] Reason for Consult ESRD on HD Chief [...] Dariela Wood MD, 12.5 mg at 03/24/22 9924 ??? cinacalcet (SENSIPAR) tablet 60 mg, 60 mg, Oral, Daily with breakfast, Grace Payan, DO, 60 mg at 03/24/22 1217 ??? cycloSPORINE modified (NEORAL/GENGRAF) capsule 100 mg, 100 mg, Oral, BID, Grace Payan, DO, 100 mg at 03/24/22 1218 ??? dextrose 10%-water (D10W) IV soln, 12.5 g, Intravenous, Q15 Min PRN OR dextrose 10%-water (D10W) IV soln, 25 g, Intravenous, Q15 Min PRN, Grace Payan, DO ??? entecavir (BARACLUDE) tablet 0.5 mg, [...] mg, 1 mg, Oral, Daily 0900, Grace Schuyler DO, 1 mg at ??? gabapentin (NEURONTIN) capsule 800 mg, 800 mg, Oral, BID, Grace Schuyler DO, 800 mg at 03/24/22 1217 ??? glucose chewable tablet 12 g, 12 g, Oral, Q15 Min PRN, Grace Payan, DO ??? heparin (porcine) injection 5,000 Units, 5,000 Units, Subcutaneous, 3 times per day, Irina Craven MD, 5,000 Units at 03/24/22 1230 ??? hydrALAZINE (APRESOLINE) tablet 100 mg, 100 mg, Oral, 3 times per day, Sherly Hawkins MD, 100 mg at 03/24/22 7524 ??? insulin lispro (humaLOG) injection 0-5 Units, 0-5 Units, Subcutaneous, TID AC, Dariela Wood MD, 1 Units at 03/23/222117 ??? isosorbide mononitrate (IMDUR) 24 hr tablet 90 mg, 90 mg, Oral, Daily 0900, Laura Gonzalez MD, 90 mg at 03/24/22 1218 ??? lisinopriL (PRINIVIL) tablet 40 mg, 40 mg, Oral, Daily 0900, Sherly Hawkins MD, 40 mg at 03/24/22 1218 ??? magnesium oxide (MAG-OX) tablet 400 mg, 400 mg, Oral, BID, Laura Gonzalez MD, 400 mg at 03/24/22 1219 ? ? methocarbamoL (ROBAXIN) tablet 500 mg, 500 mg, Oral, 4x Daily AC & HS, Grace Payan DO,500 mg at 03/24/22 1745 ??? montelukast (SINGULAIR) tablet 10 mg, 10 mg, Oral, Daily 0900, Grace Payan DO, 10 mg at 03/24/22 1218 ??? mycophenolate (CELLCEPT) capsule 250 mg, 250 mg, Oral, BID, Grace Payan DO, 250 mg at 03/24/22 1217 ??? NIFEdipine (PROCARDIA-XL) 24 hr tablet 90 mg, 90 mg, Oral, BID, Neyda Espinoza MD, 90 mg at 03/24/22 1217 ??? oxyCODONE-acetaminophen (PERCOCET) 5-325 mg per tablet [...] 10 mL, 10 mL, Intravenous, QS, Grace Payan, DO, 10 mL at 03/23/222130 ??? terazosin [...] is at baseline. Laboratory Date Recent Labs 03/22/2262103/23/22 0503/24/22 0739 WBC 3.0* 3.1* 2.8* HGB 8.3* 9.0* 8.4* HCT 25.3* 26.8* 24.6* MCV 101.1* 100.0 99.0 PLT 161 160 160 Recent Labs 03/22/22 14503/23/22 0555 03/24/22 0739 NA 135 133 130* K 4.4 4.8 4.9 CL 98 97* 94* CO2 28 25 24 BUN 21 28* 40* CREATININE 4.36* 5.65* 6.97* GLUCOSE 191* 87 101* CALCIUM 8.7 8.4* 8.0* MG 1.8 1.9 1.9 PHOS 2.5 3.6 3.9 ANIONGAP 9 11 12 Recent Labs 03/22/22145003/23/22 0555 03/24/22 0739 CALCIUM 8.7 8.4* 8.0* PHOS 2.5 3.6 3.9 Lab Results Component Value Date IRON 29 (L) 10/31/2021 TIBC 247 (L) 10/31/2021 FERRITIN 826.6 (H) 10/31/2021 Lab Results Component Value Date [id number] 325 03/24/2022 Lab Results Component Value Date [...] input(s): CO2UR, CRUR No results found for: BACILIO, [id number] In addition to the above an extensive [...] Gonzalez MD - 03/24/2022 8:36 AM EDT [facility] CVICU Progress Note Room: Critical access hospital[facility], LOS: 6 Background / Hosp course to date: Leoncio Rollins . is a 47 y.o. 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 Interval Hx / Subjective Significant events/labs/imaging/hemodynamics over past 24h: - Patient states that he had no acute events overnight. Patient states that when he was admitted [facility] that he had nausea, but have [...] patient at discharge.?? - Will partner w/ web content & social media manager to contact pt's CPAP company to [...] Recommendations: Patient has needed bathroom DME - EXHAUSTER Recs: Signed: LAURA GONZALEZ CVICU Resident 03/24/2022, [...] Left AVF - Dr Enrique Albright [place] [facility]ialysis Reportedly nearly completed his last HD [...] questions. Stephan Sequeira Nephrology fellow Pager #: [phone] Reason for Consult ESRD on HD Chief Complaint No chief complaint on file. History of Present Illness Leoncio Rollins Jr. is a pleasant 47 y.o. 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 Patient presented on 03/16/2022 with GIB early [...] BID, Sherly Hawkins MD, 200 mg at 03/23/22 111 ??? carvediloL (COREG) tablet 12.5 mg, 12.5 mg, Oral, BID , Dariela Wood MD, 12.5 mg at 03/23/22 111 ??? cinacalcet (SENSIPAR) tablet 60 mg, 60 mg, Oral, Daily with breakfast, Grace Payan DO, 60 mg at 03/23/22 1116 ??? cycloSPORINE modified (NEORAL/GENGRAF) capsule 100 mg, [...] 0900, Grace DO Schuyler, 160 mg at 03/23/22 1116 ??? folic acid (FOLVITE) tablet 1 mg, 1 mg, Oral, Daily 0900, Gracezackary Payan DO, 1 mg at 116 ??? gabapentin (NEURONTIN) capsule 800 mg, 800 mg, Oral, BID, Grace DO Schuyler, 400 mg at 03/23/22 0031 ??? glucose [...] Oral, 4x Daily AC & HS, Grace Schuyler, DO,500 mg at 03/23/22 1116 ??? montelukast [...] WC, Grace Payan, DO, 1,600 mg at 03/23/22 1116 ??? sodium chloride 0.9 % infusion, 50 mL/hr, Intravenous, Continuous, Wilmer Hoyos MD ??? Place saline lock, , , Once AND sodium chloride flush 10 mL, 10 mL, Intravenous, QS, Grace Payan DO, 10 mL at 03/23/22 1244 ??? terazosin (HYTRIN) capsule 10 mg, 10 mg, Oral, Nightly (2100), Grace Duartes, , 10 mg at 03/22/222057 Physical Examination Vitals: [...] (H) 10/31/2021 Lab Results Component Value Date [id number] 1,355 (H) 10/31/2021 Lab Results Component Value [...] CO2UR, CRUR No results found for: MICROALBUR, [id number] In addition to the above an extensive [...] notes, assessments, and/or procedures performed by the fellow/resident/SECURITY SALES CONSULTANT/AI, discussed with the medical team, and I agree with as documented. Plan for daily SQUIRREL MAN/UF to challenge weight and optimize volume iHD today IS per liver team Sandra Carranza MD Transplant Nephrology Pager: [phone] * Earnest Plummer RN - 03/23/2022 12:45 [...] Occupational Therapy Treatment and Discharge Name: Leoncio Ivelisse Rollins Jr. : 1975 Attending Physician: Ana Mercado MD Admission Diagnosis: Hematochezia [K92.1] Date: 03/23/2022 Room: [address] [place] [address] Reviewed Pertinent hospital course: Yes Hospital Course PT/OT: 47 yo M presented to an OSH with complaint of blood in stool. CT performed at the OSH suggestive of PUD, also with hepatomegaly, periportal edema, and splenomegaly with EV and minimal ascites. Found to be hypertensive in ED. Transferred to [facility] for further evaluation, concernfor rejection and GI bleed. RHC 03/18 demonstrated severe volume overload, transferred to CVICU for SWAN guided diuresis. 03/23: EGD/colonoscopy with mall gastric ulcer biopsied, no source of bleeding. Relevant PMH : OLT in 2018 2 SAL cirrhosis, ESRD on HD, pHTN, HFrEF, [...] level. Pt educated re: use of sockaid, chief of planning, longhandled sponge and longhandled shoehorn, able to [...] use of longhandled spone, longhandled shoe-horn and chief of planning for bathing/dressing tasks, pt demonstrating understanding Position [...] tolerate showering assessment (satisfactory for D/C 03/23) Conservation Or Heritage Architect Goal : STG Collaborated with: Patient, Family [...] BACK SURGERY 04/2020 the medical center ??? CREATION AV FISTULA ??? ESOPHAGOGASTRODUODENOSCOPY N/A [...] Gonzalez MD - 03/23/2022 8:07 AM EDT [facility] CVICU Progress Note Room: 32/U623, LOS: 5 Background / Hosp course to date: Leoncio Rollins Jr. is a 47 y.o. male with a PMH significant for OLT in 2017 2 SAL cirrhosis, ESRD on HD MWF,??HFintEF [...] Mon ??? fenofibrate 160 mg Oral Daily 899 ??? folic acid 1 mg Oral Daily 09 ??? gabapentin 800 mg Oral BID ??? heparin 5,000 Units Subcutaneous 3 times per day ??? hydrALAZINE (APRESOLINE) oral tablet 100 mg Oral 3 times per day ??? insulin lispro 0-5 Units Subcutaneous TID AC ??? isosorbide mononitrate 60 mg Oral Daily 09 ??? lisinopriL 40 mg Oral Daily 899 ? ? methocarbamoL 500 mg Oral 4x Daily AC & HS ??? montelukast 10 mg Oral Daily 09 ??? mycophenolate 250 mg Oral BID ??? [...] history of MRSE vertebral osteomyelitis diagnosed end 2019 and he completed 8 weeks of [...] 9-10. Hx of multiple esophageal ulcers.??EGD from 2020 with reflux esophagitis, gastritis, and [...] assess for lower body dressing DME) - EXHAUSTER Recs: Signed: LAURA GONZALEZ CVICU Resident 03/23/2022, [...] - Left AVF - Dr Enrique Albright [facility] Dialysis Reportedly nearly completed his last HD [...] questions. Stephan Sequeira Nephrology fellow Pager #: [phone] Reason for Consult ESRD on HD Chief Complaint No chief complaint on file. History of Present Illness Leoncio Rollins Jr. is a pleasant 47 y.o. 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 Patient presented on 03/16/2022 [...] breakfast, Grace Payan DO, 60 mg at 03/22/22841 ??? cycloSPORINE modified (NEORAL/GENGRAF) capsule 100 mg, 100 mg, Oral, BID, Grace Payan DO, 100 mg at 03/22/22841 ??? dextrose 10%-water (D10W) IV soln, 12.5 [...] Intravenous, Once per day on Mon, Stephan Sequiera MD ??? fenofibrate tablet 160 mg, 160 mg, Oral, Daily 0900, Grace Payan DO, 160 mg at 03/22/22 0841 ??? folic acid (FOLVITE) tablet 1 mg, 1 mg, Oral, Daily 0900, Grace Payan DO, 1 mg at ??? gabapentin (NEURONTIN) capsule 800 mg, 800 mg, Oral, BID, Grace Payan DO, 800 mg at 03/22/22 1322 ??? [...] Daily 0900, Irina Craven MD, 60mg at 03/22/22 0842 [...] 0900, Grace Payan DO, 10 mg at 03/22/22 0841 ??? mycophenolate (CELLCEPT) capsule 250 mg, 250 mg, Oral, BID, Grace Payan DO, 250 mg at 03/22/22 0841 ??? NIFEdipine (PROCARDIA-XL) 24 hr tablet 90 mg, 90 mg, Oral, BID, Neyda Espinoza MD, 90 mg at 03/22/22 0841 ??? oxyCODONE-acetaminophen (PERCOCET) 5-325 mg per tablet 1 tablet, 1 tablet, Oral, Q4H PRN, Gabriel Booth MD, 1 tablet at 03/22/22 1456 ??? pantoprazole (PROTONIX) injection 40 mg, 40 mg, Intravenous, BID6, Grace Payan DO, 40 mg at 03/22/22 1647 ??? peppermint oiL liquid 1 mL, 1 mL, MISCELLANEOUS, PRN, Neyda Espinoza MD ??? polyethylene glycol (MIRALAX) packet 238 g, 238 g, Oral, Daily 0900, Wilmer Hoyos MD, 238 g at 03/22/22 1631 ??? sevelamer carbonate (RENVELA) tablet 1,600 mg, 1,600 mg, Oral, TID WC, Grace Payan, DO, 1,600 mg at 03/22/22 1629 ??? Place saline lock, , , Once AND sodium chloride flush 10 mL, 10 mL, Intravenous, QS, Grace Payan, DO, 10 mL at 03/22/22 1319 ??? terazosin (HYTRIN) capsule 10 mg, 10 mg, Oral, Nightly (2100), Grace Payan, DO, 10 mg at 03/21/222036 Physical Examination Vitals: [...] 03/20/22 1728 03/21/22 0512 03/21/22 1153 03/22/22 06 WBC 3.4* -- 3.2* -- 3.0* HGB [...] (H) 10/31/2021 Lab Results Component Value Date [id number] 1,355 (H) 10/31/2021 Lab Results Component Value [...] CO2UR, CRUR No results found for: MICROALBUR, [id number] In addition to the above an extensive [...] team Sandra Carranza MD Transplant Nephrology Pager: [phone] * Wilmer Hoyos MD - 03/22/2022 3:29 PM EDT Brief Hepatology Note: Plan for EGD/Colonoscopy tomorrow morning. Clear liquid diet today, NPO at midnight. Miralax bowel prep ordered with dulcolax. * Irina Craven MD - 03/22/2022 7:49 AM EDT Department of Internal Medicine CVICU Progress Note Patient: Leoncio Rollins Jr. Date: 03/22/2022, 7:40 AM [facility] days Attending: Ana Mercado MD Subjective Leoncio Rollins Jr.??is a 47 y.o.??male??with PMHx OLT in 09/15 SAL cirrhosis,??ESRD on HD MWF,??HFintEF (45-50%) w/ Diastolic Dysfunction, WHO II Pulm HTN, presents with GIB Past 24 hrs: -HD yesterday; swan numbers following: CVP 18, PAP 56/28 (38), SvO2 67.1, CI 3.82. [place] and a-line removed. Transferred to floor. -VS: Afebrile, HR 69-82s, SBP 125-162/66-87 -weight 306 (03/18) -> 311 (03/21) -> pending weight from HD -I/O 6000/99595 net negative 6.5 -Labs: sodium 133, K [...] Shipley RD - 03/21/2022 4:42 PM EDT [facility] Medical Nutrition Therapy Reason(s) for Completion: [...] obese Usual Weight: see weight hx above [place] Body Weight (+/- 10%): 160 lbs +/- 10% Estimated Nutrition Needs: Needs based On: 72.7 kg IBW Kcals/day: 4403-4599 kcals (30-35 kcals/kg IBW) Protein g/day: 145-181 [...] guidelines for renal/diabetic diets Chrissie Hanna RD, NELLY Clinical Dietitian-CVICU/6S Please reach out via [employer] secure chat for questions/concerns Pager: [phone] * Ayde Segura, OT - 03/21/2022 3:20 PM EDT Occupational Therapy Initial Assessment Name: Leoncio Rollins Jr. : 1975 Attending Physician: Ana Mercado MD [...] to be hypertensive in ED. Transferred to [facility] for further evaluation, concernfor rejection and [...] reports R foot drop at baseline (since ~2017), has brace for shoe but does not [...] Goal #1: Patient will tolerate showering assessment Senior Living Goal : STG Collaborated with: Patient, Family [...] BACK SURGERY 04/2020 the medical center ??? CREATION AV FISTULA ??? ESOPHAGOGASTRODUODENOSCOPY N/A [...] Physical Therapy Initial Assessment Name: Leoncio Rollins Jr. : 1975 Attending Physician: Ana Mercado MD [...] to be hypertensive in ED. Transferred to [facility] for further evaluation, concernfor rejection and GI bleed. RHC 03/18 demonstrated severe volume overload, transferred to CVICU for SWAN guided diuresis. Relevant PMH : OLT in 09/15 SAL cirrhosis, ESRD on HD, pHTN, HFrEF, JC Precautions: no limitations Activity Level: Activity as tolerated Assessment Assessment: Impaired Bed Mobility, Impaired Transfers, Impaired Gait Prognosis: Rosendo Wolfe required SBA for supine to sit, sit [...] with assistive device Distance (in feet): 100' Senior Living Goal : =STG Patient/Family Education Educated patient [...] BACK SURGERY 04/2020 the medical center ??? CREATION AV FISTULA ??? ESOPHAGOGASTRODUODENOSCOPY N/A [...] - Left AVF - Dr Enrique Albright [facility] Dialysis Reportedly nearly completed his last HD [...] questions. Stephan Sequeira Nephrology fellow Pager #: [phone] Reason for Consult ESRD on HD Chief [...] mg, 667 mg, Oral, TID , Grace DO Schuyler, 667 mg at 03/21/22 1218 ??? carBAMazepine (TEGRETOL) tablet 200 mg, 200 mg, Oral, BID, Sherly Hawkins MD, 200 mg at 03/21/22 0930 ??? carvediloL (COREG) tablet 12.5 mg, 12.5 mg, Oral, BID , Dariela Wood MD, 12.5 mg at 03/21/22 0929 ??? cinacalcet (SENSIPAR) tablet 60 mg, 60 mg, Oral, Daily with breakfast, Grace DO Schuyler, 60 mg at 03/21/2231 ??? cycloSPORINE modified (NEORAL/GENGRAF) capsule 100 mg, 100 mg, Oral, BID, Grace DO Schuyler, 100 mg at 03/21/22930 ??? dextrose 10%-water (D10W) IV soln, 12.5 g, Intravenous, Q15 Min PRN OR dextrose 10%-water (D10W) IV soln, 25 g, Intravenous, Q15 Min PRN, Grace Payan, DO ??? fenofibrate tablet 160 mg, 160 mg, Oral, Daily 0900, Grace Payan, DO, 160 mg at 03/21/2231 ??? folic acid (FOLVITE) tablet 1 mg, 1 mg, Oral, Daily 0900, Grace Payan, DO, 1 mg at ??? gabapentin (NEURONTIN) capsule 800 mg, 800 mg, Oral, BID, Grace Schuyler DO, 800 mg at 03/21/227 ??? glucose chewable tablet 12 g, 12 g, Oral, Q15 Min PRN, Grace Duartes, DO ??? hydrALAZINE (APRESOLINE) tablet 100 mg, 100 mg, Oral, 3 times per day, Sherly Hawkins MD, 100 mg at 03/21/22929 ??? insulin lispro (humaLOG) injection 0-5 Units, 0-5 Units, Subcutaneous, TID AC, Dariela Wood MD, 1 Units at 03/21/22 1221 ??? isosorbide mononitrate (IMDUR) 24 hr tablet 60 mg, 60 mg, Oral, Daily 0900, Irina Craven MD, 60mg at 03/21/221216 ??? lisinopriL (PRINIVIL) tablet 40 mg, 40 mg, Oral, Daily 0900, Sherly Hawkins MD, 40 mg at 03/21/22928 ? ? methocarbamoL (ROBAXIN) tablet 500 mg, 500 mg, Oral, 4x Daily AC & HS, Grace Payan DO,500 mg at 03/21/22 1218 ??? montelukast (SINGULAIR) tablet 10 mg, 10 mg, Oral, Daily 0900, Gracezackary Payan DO, 10 mg at 03/21/2231 ??? mycophenolate (CELLCEPT) capsule 250 mg, 250 mg, Oral, BID, Grace Payan DO, 250 mg at 03/21/2230 ??? NIFEdipine (PROCARDIA-XL) 24 hr tablet 90 mg, 90 mg, Oral, BID, Neyda Espinoza MD, 90 mg at 08/08/22 0929 ??? oxyCODONE-acetaminophen (PERCOCET) 5-325 mg per tablet 1 tablet, 1 tablet, Oral, Q4H PRN, Gabriel Booth MD, 1 tablet at 03/20/22 1518 ??? pantoprazole (PROTONIX) injection 40 mg, 40 mg, Intravenous, BID6, Grace Payan, DO, 40 mg at 03/21/22 0516 ??? peppermint oiL liquid 1 mL, 1 mL, MISCELLANEOUS, PRN, Neyda Espinoza MD ??? sevelamer carbonate (RENVELA) tablet 1,600 mg, 1,600 mg, Oral, TID WC, Grace Payan, DO, 1,600 mg at 03/21/22 1218 ??? Place saline lock, , , Once AND sodium chloride flush 10 mL, 10 mL, Intravenous, QS, Grace Payan, DO, 10 mL at 03/21/22 1217 ??? terazosin (HYTRIN) capsule 10 mg, 10 mg, Oral, Nightly (2100), Graec Payan, DO, 10 mg at 03/20/22 2141 Physical [...] 03/19/22 1748 03/20/22 0358 03/20/22 1728 03/20/22 2159 03/21/22 0512 03/21/22 1153 WBC 3.2* -- 3.4* -- -- 3.2* -- HGB 8.3* 8.2* < > 8.9* 8.8* < > 9.0* 8.5* 9.1* HCT 24.6* -- 25.8* -- -- 25.5* -- MCV 100.8* -- 102.2* -- -- 101.4* -- PLT 166 -- 174 -- -- 161 -- < > = values in this interval not displayed. Recent Labs 03/19/22 0346 03/20/22 0358 03/21/22 0512 NA 135 138 134 K 4.3 5.0 5.5* CL 96* 102 100 CO2 27 28 23 BUN 37* 29* 45* CREATININE 7.56* 6.56* 8.16* GLUCOSE 180* 129* 108* CALCIUM 8.0* 8.4* 8.5* MG 1.9 2.0 1.9 PHOS 5.7* 5.1* 5.3* ANIONGAP 12 8 11 Recent Labs 03/19/22 0346 03/20/22 0358 03/21/2212 CALCIUM 8.0* 8.4* 8.5* PHOS 5.7* 5.1* 5.3* Lab Results Component Value Date IRON 29 (L) 10/31/2021 TIBC 247 (L) 10/31/2021 FERRITIN 826.6 (H) 10/31/2021 Lab Results Component Value Date [id number] 1,355 (H) 10/31/2021 Lab Results Component Value [...] CO2UR, CRUR No results found for: MICROALBUR, [id number] In addition to the above an extensive [...] team Sandra Carranza MD Transplant Nephrology Pager: [phone] * Keon Moy SQUIRREL MAN - 03/21/2022 10:59 AM EDT RT was present for rounding with colorist team. * Irina Craven MD - 03/21/2022 8:14 AM EDT Department of Internal Medicine CVICU Progress Note Patient: Leoncio Rollins Jr. Date: 03/21/2022, 7:56 AM Location: CVIC25/CVIC25 LOS: 3 days Attending: Ana Mercado MD Subjective Leoncio Rollins Jr.??is a 47 y.o.??male??with PMHx OLT in 2018 22 SAL cirrhosis,??ESRD on HD MWF,??HFintEF (45-50%) w/ [...] today, swan numbers following - will remove ciera and Domi following ?? Discuss possibility of cortella v [...] of volume overload. Dry weight 125 kg. [place] numbers improving but still volume overloaded. CVP16 today. -HD today for fluid removal -discuss with nephrology possibility of PD for improved fluid removal at discharge -discuss possibility of cardiomems v cartella during admission -Leave [place] in. Grab numbers following HD today and likely remove swan and [place] following ?? #Uncontrolled??HTN - hydralazine 100mg q8h [...] outlined below. Ana Mercado MD * Austin Payan - 03/20/2022 5:57 PM EDT At the patient's earlier request, I made a follow-up visit to Leoncio Oviedo Rollins Ubaldo who was alone. I provided pastoral support [...] EDT RT was present for rounding with colorist team. * Dariela Wood MD - 03/20/2022 [...] ??? terazosin 10 mg Oral Nightly (2100) PRN Meds: acetaminophen, dextrose 10% in water [...] of volume overload. Dry weight 125 kg. [place] numbers improving but still volume overloaded. CVP16 today. -anuric. Will require dialysis for volume removal -nephrology consulted, will attempt multiple dialysis sessions for volume removal. Goal 3-4 L today. Another dialysis session today -Leave [place] in. Numbers q day after dialysis session. [...] outlined below. Ana Mercado MD * Dayanara Carnes RRT - 03/20/2022 4:40 AM EDT Pt tolerated [...] 03/19/2022 10:21 AM Patient: Leoncio Rollins Jr. [id number] CVIC25/CVIC25 Date of Admit: 03/16/2022 LOS: 1 [...] - Left AVF - Dr Enrique Albright [facility] Reportedly nearly completed his last HD [...] Noel Farah D.O. Nephrology Fellow PGY-5 Pager: [phone] Reason for Consult Chief complaint: blood in [...] Temp src Pulse Resp SpO2 Height Weight 03/19/22899 -- -- 72 -- 94 % -- -- 03/19/22 0802 -- -- 71 -- 100 % -- -- 03/19/22 08 97.2 ??F (36.2 ??C) Ciera 69 20 100 % -- -- 03/19/22 [...] 306 lb 3.5 oz (138.9 kg). Date 03/18/22 07 - 03/19/22 0659 03/19/22 0700 - 03/20/22 0659 Shift 5805-2588 2645-8910 5729-2741 24 Hour Total 6292-9551 2084-2743 0184-7694 24 Hour Total INTAKE P.O. 500 360 [...] Component Value Date PCO2 48 (H) 05/30/2020 [id number] 66.1 03/19/2022 Physical Exam General appearance: Awake [...] CO2UR, CRUR No results found for: MICROALBUR, [id number] Lab Results Component Value Date PTH 870.0 (H) 09/21/2021 CALCIUM 8.0 (L) 03/19/2022 PHOS 5.7 (H) 03/19/2022 Lab Results Component Value Date CGIO54P 15.8 (L) 01/14/2019 Anemia Labs: Lab Results Component Value Date IRON 29 (L) 10/31/2021 TIBC 247 (L) 10/31/2021 FERRITIN 826.6 (H) 10/31/2021 Lab Results Component Value Date [id number] 1,355 (H) 10/31/2021 Sepsis Marker Labs: No results for input(s): LACTATE in the last 72 hours. Lab Results Component Value Date FIBRINOGEN 454 (H) 07/20/2019 No results for input(s): TEGANGLE, TEGKTIME, WJJBHPAB97, TEGMAXAMPL, TEGRTIME, CBMZ in the last 72 [...] HIV1X2 Negative 03/18/2022 No results found for: UZ3OXFVP No results found for: VDRLCSF Lab Results Component Value Date HEPAIGM Nonreactive 03/17/2022 HEPBCAB Reactive (A) 03/17/2022 No results found for: [id number] No results found for: [id number] In addition to the above an extensive [...] 2D Complete (TTE) Result Date: 03/17/2022 * [facility]* [address] [place] [address] Transthoracic Echocardiography Patient: Leoncio Rollins MR #: [id number] Account: Study Date: 03/17/2022 Gender: M Age: 47 : 1975 Room: [facility] FELLOW MD DENNY Reid MD READING Dontae Hawkins MD RETAIL PHARMACY TECHNICIAN Ashish Sheldon ORDERING Mandi Mora REFERRING Mandi [...] 62 - 150 ESV (H) 92 ml EF (L) 42 % 72 SV 113 ml EDV/bsa (N) 61 ml/m^2 74 ESV/bsa (H) 35 ml/m^2 SV/bsa 43 [...] Reviewed and confirmed by Vinod Stokes MD [id number]:59:52 US Abdomen Complete Result Date: 03/17/2022 EXAM: US ABDOMEN COMPLETE EXAM: US DUPLEX [id number]-[id number] COMPLETE INDICATION: Elevated LFTs. Remote liver transplant. [...] at 03/17/2022 7:49 AM EDT US Duplex Zwh-Qlh-Lrbhpjx Comp Result Date: 03/17/2022 EXAM: US ABDOMEN COMPLETE EXAM: US DUPLEX TNQ-VIPPXJ-ITOEULW COMPLETE INDICATION: Elevated LFTs. Remote liver transplant. [...] ??? terazosin 10 mg Oral Nightly (2100) PRN Meds: acetaminophen, carBAMazepine, dextrose 10% in [...] of volume overload. Dry weight 125 kg. [place] numbers improving but still volume overloaded. -anuric. Will require dialysis for volume removal -nephrology consulted, will attempt multiple dialysis sessions for volume removal. Goal 3-4 L today. Will attempt daily sessions -Leave [place] in. Numbers q day after dialysis session [...] outlined below. Ana Mercado MD * Dayanara Carnes RRT - 03/19/2022 4:38 AM EDT Pt placed [...] 70%. Pt placed on our V60 unit. 10 45% RR 10. SPO2 98% * Austin Payan - 03/18/2022 8:35 PM EDT Upon the recommendation of the previous shift's research librarian, I visited Leoncio Oviedo Eh Marques who was alone. Upon my third attempt to visit with him, I provided pastoral support and offered prayer with the patient who hails from [place] and [place], [place]. No follow-up visitation is required. Chaplain [...] we r ecommended transfer to CVICU for [place]-guided management for HFpEF and RV failure. #HFmrEF exacerbation #RV failure #Post-capillary pulmonary hypertension #JC on BiPAP #Mitral valve vegetation #GI bleeding (stable) #Non-obstructive CAD (by CT coronary 2020 at OSH) #Prolonged QTc RECOMMENDATIONS: --Transfer to CVICU --GI consult --Discussed with primary team --Follow blood cultures Patient seen and discussed with the attending manager image, Dr. Hernandez. Recommendations are considered preliminary until co-signed by the attending manager image. Follow up appointments with Cardiology can be scheduled by calling [phone]. Thank you for involving us in their [...] Temp 96.6 ??F (35.9 ??C) Temp Source [place] Heart Rate 73 Heart Rate Source Monitor [...] EDT Sedation Post-op Note Patient: Leoncio Rollins Jr. Procedure(s) Performed: RHC, sutured in at 57 [...] - 03/18/2022 9:15 AM EDT Oliver Reed MD,[facility] Asst. Prof, Cardiovascular Health and Disease * Grcae Payan DO - 03/18/2022 1:49 AM EDT [...] DO, MS Internal Medicine Resident, PGY-3 Pager [phone] 03/18/2022, 1:50 AM * Neyda Espinoza MD [...] q8h and lisinopril 40mg daily. Home Toprol PU750ld adjusted - Continue home nifedipine 90mg BID [...] - PT Recs: - OT Recs: - EXHAUSTER Recs: Lines/Drains/Airway: Patient Lines/Drains/Airways Status Active Line [...] [address] Salinas , ESRD MWF who presented with [facility] for dialysis. Shortly after developed some epigastric [...] Hoyos MD - 03/23/2022 8:50 AM EDT [facility] PRE-SEDATION ASSESSMENT, HISTORY & PHYSICAL Date: [...] BACK SURGERY 04/2020 the medical center ??? CREATION AV FISTULA ??? ESOPHAGOGASTRODUODENOSCOPY N/A [...] andconfirm it. Roxann Moore MD Transplant Hepatology [phone] (p) * Dariela Wood MD - 03/18/2022 [...] BACK SURGERY 04/2020 the medical center ??? CREATION AV FISTULA ??? ESOPHAGOGASTRODUODENOSCOPY N/A [...] Feng CNP blood-glucose meter (ONETOUCH VERIO SYSTEM) [facility]. 10/18/17 Yes Bere Feng [...] BP Temp Temp src Pulse Resp SpO2 03/18/22 0700 152/90 97.4 ??F (36.3 ??C) Oral [...] at 03/17/2022 10:32 AM EDT US Duplex Nye-Mgq-Vdiaqni Comp Final Result IMPRESSION: ABDOMEN 1. Normal [...] L today. Will attempt daily sessions -Leave [place] in. Numbers q day after dialysis session [...] Diabetes Mellitus - Hgb A1C 5.8 on 8/4 - Euglycemic on labs - SSI with [...] Prep (Golytely) allowed until 0500. starting at 08 0000 DVT Prophylaxis: SCDs GI Prophylaxis: PPI [...] for w/o of potential UGIB. He endorses AELXANDER and seemed volume overload, so was scheduled [...] Booth MD - 03/18/2022 8:04 AM EDT [facility] PRE-SEDATION ASSESSMENT, HISTORY & PHYSICAL Date: [...] BACK SURGERY 04/2020 the medical center ??? CREATION AV FISTULA ??? ESOPHAGOGASTRODUODENOSCOPY N/A [...] Feng CNP blood-glucose meter (ONETOUCH VERIO SYSTEM) [facility] Use as instructed. 10/18/17 Yes Bere Feng [...] and plan. Oliver Reed MD * Ted Barrow, DO - 03/16/2022 11:55 PM EDT Department of Internal Medicine History & Physical Patient: Leoncio Rollins Jr. CSN: [id number] Chief Complaint Hematochezia History of Present Illness [...] a drip. He was subsequently transferred to [facility] for further evaluation. Review of Systems [...] BACK SURGERY 04/2020 the medical center ??? CREATION AV FISTULA ??? ESOPHAGOGASTRODUODENOSCOPY N/A [...] Feng CNP blood-glucose meter (ONETOUCH VERIO SYSTEM) [facility] Use as instructed. 10/18/17 Yes Bere Feng [...] mouth 2 times a day. 06/25/20 Yes Jkae Zavala MD mycophenolate (CELLCEPT) 250 mg capsule Take 1 capsule (250 mg total) by mouth 2 times a day. 02/09/22 Yes Jack Ordoñez MD NIFEdipine (PROCARDIA-XL) 90 MG (OSM) 24 hr tablet Take 90 mg by mouth 2 times a day. 04/23/18 Yes Historical ProviderMD omega-3 fatty acids-fish oil 300-1,000 mg capsule Take 2 capsules by mouth 2 times a day with meals. Yes Historical Provider, ondansetron (ZOFRAN-ODT) 4 MG disintegrating tablet Take 4 mg by mouth every 8 hours as needed. 04/11/18 Yes Historical ProviderMD pantoprazole (PROTONIX) 40 MG tablet Take 1 [...] a day with meals. Yes Historical Provider, cholecalciferol, vitamin D3, 1,250 [...] - Minimal ascites Assessment & Plan Leoncio Rollins . is a 47 y.o. male being admitted [...] Prep (Golytely) allowed until 0500. starting at 03/17 0000 Diet clear liquid Clear Liquid; No; clear liquid no red and no purple starting at 03/16 2159 Code Status: Prior Signed: TED BARROW [...] apnea however is not using CPAP. ECHO 2019 showed dilated RV and RA. Repeat ECHO, particularly in setting of pt requiring sedation for evaluation hematochezia. Anes consult Card consult Plan for colonoscopy/EGD potentially 03/18/22. documented in this encounter Procedure Notes * Roxann Moore MD - 03/23/2022 9:13 AM EDT [id number] Procedure Date: 03/23/2022 9:13 AM Patient Name: [...] verified by the physician, the nurse, the shellac polisher and the heavy equipment technician in the procedure room. Mental Status Examination: [...] for surveillance. Procedure Code(s): --- Professional --- 06398, GC, Colonoscopy, flexible; diagnostic, including collection of specimen(s) by brushing or washing, when performed (separate procedure) Diagnosis Code(s): --- Professional --- K64.8, Other hemorrhoids K92.1, Melena (includes Hematochezia) CPT copyright 2020 [employer]. All rights reserved. The codes documented in this report are preliminary and upon melting operator review may be revised to meet current compliance requirements. ROXANN MOORE Roxann Moore, 03/23/2022 9:51:42 AM Husam Wilmer Hoyos, 03/23/2022 9:50:30 AM Scope Withdrawal Time 0 hours 8 minutes 24 seconds Total Procedure Duration Time 0 hours 15 minutes 38 seconds Scope In: 9:18:06 AM Scope Out: 9:33:[address] [place], [place] [id number] * Roxann Moore MD - 03/23/2022 9:04 AM EDT [id number] Procedure Date: 03/23/2022 9:04 AM Patient Name: [...] verified by the physician, the nurse, the shellac polisher and the heavy equipment technician in the procedure room. Mental Status Examination: [...] previously scheduled. Procedure Code(s): --- Professional --- 54228, Esophagogastroduodenoscopy, flexible, transoral; with biopsy, single or multiple Diagnosis Code(s): --- Professional --- K44.9, Diaphragmatic hernia without obstruction or gangrene K25.9, Gastric ulcer, unspecified as acute or chronic, without hemorrhage or perforation K31.89, Other diseases of stomach and duodenum R10.13, Epigastric pain CPT copyright 2020 [employer]. All rights reserved. The codes documented in this report are preliminary and upon melting operator review may be revised to meet current compliance requirements. ROXANN MOORE Roxann Moore, 03/23/2022 9:49:40 AM Husam Wilmer Hoyos, 03/23/2022 9:45:30 AM Total Procedure Duration Time 0 hours 7 minutes 26 seconds Scope In: 9:03:43 AM Scope Out: 9:11:[address] [place], [place] [id number] * Dariela Wood MD - 03/18/2022 8:54 [...] temperature 98.5 ??F (36.9 ??C), temperature source [place], resp. rate 20, weight (!) 305 lb 1.9 oz (138.4 kg), SpO2 90 %. Insert Arterial Line Date/Time: 03/18/2022 8:54 PM Performed by: Dariela Wood MD Authorized by: Dariela Wood MD Consent: Consent obtained: Written Consent given by: Patient Risks, benefits, and alternatives were discussed: yes [place] protocol: Patient identity confirmed: Verbally with patient [...] EDTAssociated Order(s): IP CONSULT TO NUTRITION SERVICES [facility] Medical Nutrition Therapy Follow-Up Reason(s) for [...] Needs based On: 72.7 kg IBW Kcals/day: 4859-7872 kcals (30-35 kcals/kg IBW) Protein g/day: 145-181 [...] Arias RDN, LDN Clinical Dietitian Contact via [employer] * Saleem Shipley RN - 03/22/2022 2:32 PM EDT HEALTH Care Management/Social Work Assessment Patient Information Hospital Day: 4 Inpatient/Observation: Inpatient Admit Date: 03/16/2022 Admission Diagnosis: Hematochezia [K92.1] Attending provider: Ana Mercado MD PCP: Edgar Fournier MD Home Pharmacy: [facility] [address] [address] [facility] [address] [facility] [address] [facility] [phone] [facility] [address] [facility] [address] [facility] [address] [facility] [address] [facility] [address] Pertinent Medications Anticoagulation therapy: No New Diabetic: No Issues related to obtaining medications: none Payor Information Medical Insurance Coverage: Payor: ANTHEM DUAL ADVANTAGE (HMO SNP) / Plan: ANTHEM ADVANTAGE / Product Type: *No Product type* / Secondary Payor: Medicaid [place] Functional Assessment Functional Assessment Assessment Information Obtained [...] Wheelchair, Cane (rollator) Respiratory Company Name/Phone #: [facility] [phone] Oxygen Needs: CPAP Dialysis Needs: Hemodialysis HD Clinic Name and Location: [facility] [phone] fax: [phone] HD days of week: MWF HD time of day: 745 HD Transportation provided by: self Was any abuse reported by patient?: No Support Systems Emergency contact: Extended Emergency Contact Information Primary Emergency Contact: Kym Rollins Address: [address] [place] [address] Mobile Relation: Spouse Secondary Emergency Contact: Kimberly Rollins [facility] Relation: Mother Support Systems Legal Status: N/A Primary Caregiver: Self, Family Times of available support: Limited 24/7 hands on (add comment) Marital Status: Number of children and their names: 2 Relative Search Completed: No Demographics Correct:: Yes Discharge Destination: Home Next of Kin: Kym Rollins Next of Kin Relationship: Spouse Next of Kin Assessment Information Obtained From:: Patient Other Pertinent Information Pt's STEPHANIE is his spouse Kym. Pt receives HD from [facility] [phone] . MWF, drives self. Chair time 7:45am [...] home. Pt has a CPAP supplied through [facility] [phone]. Pt reports his spouse will be able [...] as appropriate. Saleem Shipley RN Phone Number: [phone] * Wilmer Hoyos MD - 03/21/2022 6:24 PM EDTAssociated Order(s): IP CONSULT TO LIVER Images from the original note were not included. Department of Digestive Diseases Hepatology Consult Note Name: Leoncio Rollins Jr. CSN: [id number] Consulted by: Ana Mercado MD Reason for [...] PUD, ascites, and EV. Was transferred to [facility] GI wards where plans were made [...] BACK SURGERY 04/2020 the medical center ??? CREATION AV FISTULA ??? ESOPHAGOGASTRODUODENOSCOPY N/A [...] for: CA125 Lab Results Component Value Date [id number] 1,355 (H) 10/31/2021 Lab Results Component Value [...] X-ray Portable Chest Final Result IMPRESSION: 1. [place]-Viviana catheter tip in the left lower lobe [...] at 03/17/2022 10:32 AM EDT US Duplex Hid-Ytc-Lnsmqun Comp Final Result IMPRESSION: ABDOMEN 1. Normal [...] Hoyos MD Gastroenterology/Hepatology Fellow- PGY 6 Pager [phone] Cosigned by Roxann Moore MD at 03/21/2022 [...] liver pathology. Roxann Moore MD Transplant Hepatology [phone] (p) * Dariela Chu, DO - 03/17/2022 8:59 PM EDTAssociated Order(s): IP CONSULT TO CARDIOLOGY [facility] Department of Cardiovascular Health and Diseases [...] and pulmonary hypertension (post- capillary by 2018 [facility]). He is here for hematochezia and is being considered for EGD/Colonoscopy. EGD/Colonoscopy is a relatively low risk procedure and risk stratification is limited as estimated risk of complications is typically for procedures of intermediate-high risk of issues. However, generally he has an elevated risk of perioperative /[place] and cardiac arrest in the 10-15% range [...] the following: --Right heart catheterization, NPO @ HI --CTPA at discretion of primary team regarding [...] Patient seen and discussed with the attending manager image, Dr. Hernandez. Recommendations are considered preliminary until co-signed by the attending manager image. Follow up appointments with Cardiology can be scheduled by calling [phone]. Thank you for involving us in their [...] BACK SURGERY 04/2020 the medical center ??? CREATION AV FISTULA ??? ESOPHAGOGASTRODUODENOSCOPY N/A [...] time ??? blood-glucose meter (ONETOUCH VERIO SYSTEM) [facility] Use as instructed. 1 each 0 03/16/2022 [...] ??? lancets (ONETOUCH DELICA LANCETS) 33 gauge [facility] Use 1 strip as directed 4 times [...] mg Oral Nightly (2099) Continuous Infusions: PRN Meds:.acetaminophen, carBAMazepine, dextrose 10% [...] 0659 03/17/22 0700 - 03/18/22 0659 Shift 9864-8969 8086-4168 24 Hour Total 9924-4358 8553-5071 2215-4993 24 Hour Total INTAKE P.O. 120 120 [...] 03/16/22 Echo 2D Complete (TTE) Narrative * [facility]* [address] [place] [address] Transthoracic Echocardiography Patient: Leoncio Rollins MR #: [id number] Account: Study Date: 03/17/2022 Gender: M Age: 47 : 1975 Room: [facility] FELLOW MD DENNY Reid MD READING Dontae Hawkins MD RETAIL PHARMACY TECHNICIAN Ashish Sheldon ORDERING Mandi Mora REFERRING Mandi [...] % FS, LAX chord (L) 21 % 43 ESD (H) 4.5 cm 2.5 - 4.0 ESD/bsa (N) 1.7 cm/m^2 1.3 - 2.1 PW, ED (H) 1.5 cm 0.6 - 1.0 IVS/PW, ED 1 EDV (H) 160 ml 62 - 150 ESV (H) 92 ml 61 EF (L) 42 % 52 - 72 SV 113 ml EDV/bsa (N) 61 ml/m^2 34 74 ESV/bsa (H) 35 ml/m^2 11 SV/bsa [...] Reviewed and confirmed by Vinod Stokes MD [id number]:59:52 Last Stress test: Results for orders placed [...] encounter of 06/05/18 Cardiac Cath Narrative * *[facility]* Cardiac Money Laundering Investigator [address] [place] [address] CATHETERIZATION LAB STUDY Patient: Eh, Age: 43 Study 06/05/2018 Leoncio Date: Patient [id number] Gender: M Study 01:25 PM ID: Time: [...] Fluoroscopy dose : Fluoroscopy dose: 72.8cGy. Location: [facility] PROCEDURE: 1. Initial setup. The patient was brought to the laboratory in the fasting state. Surface ECG leads, blood pressure measurements, and pulse oximetric signals were monitored. 2. Skin preparation. The planned puncture sites were prepped and draped in the usual sterile manner. 3. Right internal jugular vein access. A 4f [employer] mini access kit sheath was advanced into the vessel. 4. Sheath exchange. The sheath was exchanged for a 3iz48wa pinnacle sheath. 5. Right heart catheterization. A 6f swan-viviana td catheter was advanced via the access site into the right atrium, right ventricle, pulmonary artery and wedge position under fluoroscopic guidance. 6. Right radial artery access. A [id number] glidesheath - slender - .021 sheath was advanced into the vessel. 7. Left heart catheterization. A 5f pigtail 145 catheter was advanced across the aortic valve to the left ventricle under fluoroscopic guidance. 8. Selective left coronary angiography. A [id number] tig 4.0 catheter was advanced into the left coronary vessel ostium under fluoroscopic guidance. Contrast was injected. Images were obtained in multiple projections. 9. Selective right coronary angiography. A [id number] tig 4.0 catheter was advanced into the [...] + + + !RA pressure a/v (m) !13/13 (13) ! + + + !RV pressure [...] + + +-----+ + !Condition1:Condition 1 - !HaoxyzcI4Rzlnllfgatg!292.5!ml/min ! !Abelino ! ! ! ! + [...] and electronically signed by Jay Talley MD [id number]:37 Last Cardiac MRI No results found for this or any previous visit. Emergency Contact Information Emergency Contact: Extended Emergency Contact Information Primary Emergency Contact: EhKym Address: [address] [place] [address] Mobile Relation: Spouse Secondary Emergency Contact: Kimberly Rollins [facility] Relation: Mother Cosigned by Wilmer Hernandez MD [...] 03/17/2022 6:49 PM Patient: Leoncio Rollins Jr. [id number] Date of Admit: 03/16/2022 LOS: 1 days Referring physician: Kelsey Carcamo MD Date of Response: 03/17/2022 Recommendations: - ESKD 2/2 DM2/HTN - s/p OLT (2018) - last HD 03/16/2022. - HDS, electrolytes [...] Fortino Palomino DO Nephrology Fellow, PGY-4 Pager: [phone] Reason for Consult Chief complaint: blood in stool History of Present Illness Leoncio Rollins Jr. is a pleasant 47 y.o. 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 Patient presented on 03/16/2022 with GIB early [...] BACK SURGERY 04/2020 the medical center ??? CREATION AV FISTULA ??? ESOPHAGOGASTRODUODENOSCOPY N/A [...] 03/16/2022 at Unknown time ??? blood-glucose meter (The CombineUCH VERIO SYSTEM) [facility] Use as instructed. 1 each 0 03/16/2022 [...] ??? pen needle, diabetic 32 gauge x /32 Ndle Use as directed to inject insulin [...] mg Oral Nightly (2100) Continuous Infusions: PRN medications: acetaminophen, carBAMazepine, dextrose [...] 299 lb 1.6 oz (135.7 kg). Date 03/16/22 1500 - 03/17/22 0659 03/17/22 0700 - 03/18/22 0659 Shift 0547-2566 1961-7541 24 Hour Total 9509-3527 0622-2546 6503-2438 24 Hour Total INTAKE P.O. 120 120 [...] Component Value Date PCO2 48 (H) 05/30/2020 [id number] 90.1 (L) 05/30/2020 Physical Exam General appearance: [...] CO2UR, CRUR No results found for: MICROALBUR, [id number] Lab Results Component Value Date PTH 870.0 (H) 09/21/2021 CALCIUM 9.1 03/16/2022 PHOS 4.9 (H) 03/16/2022 Lab Results Component Value Date [id number] 15.8 (L) 01/14/2019 Anemia Labs: Lab Results Component Value Date IRON 29 (L) 10/31/2021 TIBC 247 (L) 10/31/2021 FERRITIN 826.6 (H) 10/31/2021 Lab Results Component Value Date KBZXJIBI24 1,355 (H) 10/31/2021 Sepsis Marker Labs: No results for input(s): LACTATE in the last 72 hours. Lab Results Component Value Date FIBRINOGEN 454 (H) 07/20/2019 No results for input(s): TEGANGLE, TEGKTIME, VWTITYCX04, TEGMAXAMPL, TEGRTIME, CBMZ in the last 72 [...] found for: HIV1X2 No results found for: EQ2IVRYI No results found for: VDRLCSF Lab Results Component Value Date HEPAIGM Nonreactive 10/31/2021 HEPBCAB Reactive (A) 10/31/2021 No results found for: [id number] No results found for: [id number] In addition to the above an extensive [...] 2D Complete (TTE) Result Date: 03/17/2022 * [facility]* [address] [place] [address] Transthoracic Echocardiography Patient: Leoncio Rollins MR #: [id number] Account: Study Date: 03/17/2022 Gender: M Age: 47 : 1975 Room: [facility] FELLOW Dontae Hawkins MD PERFORMING Vinod Stokes MD READING Dontae Hawkins MD RETAIL PHARMACY TECHNICIAN Ashish Sheldon ORDERING Mandi Mora REFERRING Mandi [...] % FS, LAX chord (L) 21 % 43 ESD (H) 4.5 cm 2.5 - [...] of the resident. Reviewed and confirmed by Vindo Stokes MD [id number] US Abdomen Complete Result Date: 03/17/2022 EXAM: US ABDOMEN COMPLETE EXAM: US DUPLEX [id number] COMPLETE INDICATION: Elevated LFTs. Remote liver transplant. [...] at 03/17/2022 7:49 AM EDT US Duplex Euq-Lnk-[id number] Comp Result Date: 03/17/2022 EXAM: US ABDOMEN COMPLETE EXAM: US DUPLEX [id number] COMPLETE INDICATION: Elevated LFTs. Remote liver transplant. [...] no red and no purple starting at 03/17 1827 Access: Patient Lines/Drains/Airways Status Active Epidural [...] - 03/16/2022 9:15 PM EDT Leoncio Rollins Jr. admitted to [facility] [id number]/[id number]. Patient AxO X4. Pt [...] it was obtained on 03/23/22. Ciera Robbins [facility] Review Manager Electric System Operator [phone] * Plan of Care - Shilpa Rico [...] a Crit Line Used for this Treatment? [place] of provider contacted to adjusted target fluid [...] a Crit Line Used for this Treatment? [place] of provider contacted to adjusted target fluid [...] Shipley RN - 03/23/2022 1:28 PM EDT [facility] Case Management/Social Work Department Progress Note Patient [...] deficiency. PCP: Edgar Fournier MD Home Pharmacy: [facility] [address] [address] [facility] - [place], [place] - [address] [facility] [address] [facility] [phone] [facility] [address] [facility] [address] [facility] [address] [facility] [address] [facility] [id number] Medical Insurance Coverage: Payor: ANTHEM DUAL ADVANTAGE [...] discharge planning needs. Saleem Shipley RN Cell [phone] * Care Coordination - Roseann Kimble - 03/23/2022 11:30 AM EDT DCPA completed IMM with pt at bedside. Pt verbalized understanding, copy placed in hard chart. Roseann Kimble Discharge Edge Sander Cell [phone] * Plan of Care - Yareli Dominguez [...] Shipley RN - 03/22/2022 10:22 AM EDT [facility] Case Management/Social Work Department Progress Note Patient [...] deficiency. PCP: Edgar Fournier MD Home Pharmacy: [facility] [address] [facility] [address] [facility] [address] [facility] - [place], [place] - [address] [facility] [phone] [facility] [address] [facility] [address] [facility] [address] [facility] [address] [facility] [address] Medical Insurance Coverage: Payor: RUDY DUAL ADVANTAGE (HMO SNP) / Plan: ANTHEM [...] Pt provided CM the contact information for [facility] [phone], supplier of hisCPAP. CM spoke with [facility] and reported issue with pt's CPAP, [facility] reported that pt needed to have settings adjusted or may need a BiPAP but they would need orders to adjust settings or change machine to a BiPAP. [facility] also reported that they don't have loaner machines. If machine if out of warrantee then pt would be responsible for out of pocket replacement cost perCPAP company. 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 Update 345pm- [facility] contacted CM and reported that they would need a Rx from the MD to update pt's setting to either IPAP/EPAP or auto BiPAP with pressure support. Updated Rx should be faxedto [phone]. CM updated MD on need for Rx with CPAP settings. Discharge Plan Anticipated discharge plan: home Anticipated discharge date: 03/24/22 CM/SW will continue to follow and remain available for discharge planning needs. Saleem Shipley RN Tcqc [phone] * Plan of Care - Analia Mullins [...] Shipley RN - 03/21/2022 1:33 PM EDT [facility] Case Management/Social Work Department Progress Note Patient [...] deficiency. PCP: Edgar Fournier MD Home Pharmacy: [facility] [address] [facility] [address] [facility] - [place] - [address] [facility] [phone] [facility] [address] [facility] [address] [facility] [address] [facility] [address] Medical Insurance Coverage: Payor: ANTHEM DUAL ADVANTAGE (HMO SNP) / Plan: ANTHEM ADVANTAGE / Product Type: *No Product type* / Other Pertinent Information CM rounded with CVICU team A, per team pt not medically ready. Discharge Plan Anticipated discharge plan: home Anticipated discharge date: 03/24/22 CM/SW will continue to follow and remain available for discharge planning needs. Saleem Shipley RN Cell [phone] * Plan of Care - Janice Gonzalez [...] a Crit Line Used for this Treatment? [place] of provider contacted to adjusted target fluid [...] Hickman RN - 03/17/2022 3:56 PM EDT [facility] Case Management/Social Work Department Discharge Planning Screen Screening Questions Do you need help filling out medical forms: No Is patient from anywhere other than a private residence? (retirement, SNF, LTC, IPR, LTAC, etc.): No Do [...] available for discharge planning needs. Skylar Hickman underground conduit installer [phone] documented in this encounter Plan of Treatment Upcoming Encounters Date Type Department Care Team (Late st Contact Info) Description 07/15/2024 9:00 AM EST Hospital Encounter [facility] Interventional Radiology [address] [place] [phone] Herve Carrillo MD [address] [facility] [address] [place] [phone] Scheduled Orders Name Type Priority Associated Diagnoses [...] to 44.9 in adult, unspecified obesity type ([facility]) Ordered: 03/25/2022 documented as of this encounter [...] Routine 03/17/2022 9:57 AM EDT US DUPLEX [id number] COMPLETE Routine 03/17/2022 8:09 AM EDT US [...] - 146 mmol/L 03/25/2022 8:08 AM EDT [facility] Potassium 4.7 3.5 - 5.3 mmol/L 03/25/2022 8:08 AM EDT [facility] Chloride 96(L) 98 - 110 mmol/L 03/25/2022 8:08 AM EDT [facility] CO2 28 21 - 33 mmol/L 03/25/2022 8:08 AM EDT [facility] Anion Gap 11 3 - 16 mmol/L 03/25/2022 8:08 AM EDT [facility] BUN 32(H) 7 - 25 mg/dL 03/25/2022 8:08 AM EDT [facility] Creatinine 6.48(H) 0.60 - 1.30 mg/dL 03/25/2022 8:08 AM EDT [facility] Glucose 132(H) 70 - 100 mg/dL 03/25/2022 8:08 AM EDT [facility] Calcium 8.1(L) 8.6 - 10.3 mg/dL 03/25/2022 8:08 AM EDT [facility] Phosphorus 3.7 2.1 - 4.7 mg/dL 03/25/2022 8:08 AM EDT [facility] Albumin 4.2 3.5 - 5.7 g/dL 03/25/2022 8:08 AM EDT [facility] Osmolality, Calculated 289 278 - 305 mOsm/kg 03/25/2022 8:08 AM EDT [facility] EGFR 10 03/25/2022 8:08 AM EDT [facility] Comment:As of 2021, the [...] MD LAB BLOOD ORDERABLES Final Resu lt [facility] [address] [place] [address], [facility] * (ABNORMAL) CBC (03/25/2022 7:32 AM EDT) WBC 2.9(L) 3.8 - 10.8 10E3/uL 03/25/2022 7:47 AM EDT [facility] RBC 2.45(L) 4.20 - 5.80 10E6/uL 03/25/2022 7:47 AM EDT [facility] Hemoglobin 8.4(L) 13.2 - 17.1 g/dL 03/25/2022 7:47 AM EDT [facility] Hematocrit 24.2(L) 38.5 - 50.0 % 03/25/2022 7:47 AM EDT [facility] MCV 98.8 80.0 - 100.0 fL 03/25/2022 7:47 AM EDT [facility] MCH 34.3(H) 27.0 - 33.0 pg 03/25/2022 7:47 AM EDT [facility] MCHC 34.7 32.0 - 36.0 g/dL 03/25/2022 7:47 AM EDT [facility] RDW 13.6 11.0 - 15.0 % 03/25/2022 7:47 AM EDT [facility] Platelets 166 140 - 400 10E3/uL 03/25/2022 7:47 AM EDT [facility] MPV 7.4(L) 7.5 - 11.5 fL 03/25/2022 7:47 AM EDT [facility] Whole Blood 03/25/2022 7:32 AM EDT 03/25/2022 7:38 AM EDT Laura Gonzalez MD LAB BLOOD ORDERABLES Final Resu lt [facility] [address] * Magnesium (03/25/2022 7:32 AM EDT) [facility] Magnesium 2.1 1.5 - 2.5 mg/dL 03/25/2022 8:08 AM EDT [facility] Plasma 03/25/2022 7:32 AM EDT 03/25/2022 7:38 AM EDT us Laura Gonzalez MD LAB BLOOD ORDERABLES Final Resu lt Performing Organization Address [facility]/ZIP Co de Phone Number [facility] [address] [place] [address] * (ABNORMAL) POC Glucose Monitoring Device (03/25/2022 12:16 AM EDT) [facility] POC Glucose Monitoring Device 135(H) 70 - 100 mg/dL 03/25/2022 12:20 AM EDT [facility] Blood 03/25/2022 12:1 6 AM EDT 03/25/2022 12:20 AM EDT Kelsey Carcamo MD POINT OF CARE TEST ORDERA BLES Final Result Performing Organization Address City/[facility]/ZIP Co de Phone Number [facility] [address] [place] [address] * (ABNORMAL) Venous Blood Gas, Line/Syringe (03/24/2022 11:34 PM EDT) PH-Line Draw 7.40 7.32 - 7.42 03/24/2022 11:42 PM EDT [facility] PCO2-Line Draw 45 41 - 51 mm Hg 03/24/2022 11:42 PM EDT [facility] PO2-Line Draw 50(H) 25 - 40 mm Hg 03/24/2022 11:42 PM EDT [facility] HCO3-Line Draw 28 24 - 28 mmol/L 03/24/2022 11:42 PM EDT [facility] CO2 Content-Line Draw 29 25 - 29 mmol/L 03/24/2022 11:42 PM EDT [facility] Base Excess-Line Draw 2.5 -2.0 - 3.0 mmol/L 03/24/2022 11:42 PM EDT [facility] %HBO2-Line Draw 83.1(H) 40.0 - 70.0 % 03/24/2022 11:42 PM EDT [facility] Carboxyhgb-Nemo e Draw 1.9 % 03/24/2022 11:42 PM EDT [facility] Comment: CARBOXYHEMOGLOBIN (CO) REFERENCE RANGES: Non-Smokers: ??<2 % ? Smokers: ??<8 % TOXIC: >20 % Methemoglobin- Line Draw 0.6 0.0 - 1.5 % 03/24/2022 11:42 PM EDT [facility] Reduced Hemoglobin-Nemo e Draw 14.4(H) 0.0 - 5.0 % 03/24/2022 11:42 PM EDT [facility] Venous, Line Draw 03/24/2022 11:34 PM EDT 03/24/2022 11:41 PM EDT us Ky Hills MD LAB BLOOD ORDERABLES Final Result [facility] [address] [place], [place] [address] * (ABNORMAL) POC Glucose Monitoring Device (03/24/2022 7:16 PM EDT) [facility] POC Glucose Monitoring Device 197(H) 70 - 100 mg/dL 03/24/2022 7:17 PM EDT [facility] Blood 03/24/2022 7:16 PM EDT 03/24/2022 7:17 PM EDT Kelsey Carcamo MD POINT OF CARE TEST ORDERA BLES Final Result Performing Organization Address City/[facility]/ZIP Co de Phone Number [facility] [address] [place] [address] * (ABNORMAL) POC Glucose Monitoring Device (03/24/2022 4:09 PM EDT) POC Glucose Monitoring Device 164(H) 70 - 100 mg/dL 03/24/2022 4:10 PM EDT [facility] Blood 03/24/2022 4:09 PM EDT 03/24/2022 4:09 PM EDT Kelsey Carcamo MD POINT OF CARE TEST ORDERA BLES Final Result Performing Organization Address [facility]/ZIP Co de Phone Number [facility] [address] [place] [address] * (ABNORMAL) POC Glucose Monitoring Device (03/24/2022 12:07 PM EDT) POC Glucose Monitoring Device 106(H) 70 - 100 mg/dL 03/24/2022 12:08 PM EDT [facility] Blood 03/24/2022 12:0 7 PM EDT 03/24/2022 12:08 PM EDT Kelsey Carcamo MD POINT OF CARE TEST ORDERA BLES Final Result Performing Organization Address City/[facility]/ZIP Co de Phone Number [facility] [address] [place] [address] * (ABNORMAL) POC Glucose Monitoring Device (03/24/2022 9:58 AM EDT) POC Glucose Monitoring Device 105(H) 70 - 100 mg/dL 03/24/2022 9:59 AM EDT [facility] Blood 03/24/2022 9:58 AM EDT 03/24/2022 9:59 AM EDT us Kelsey Carcamo MD POINT OF CARE TEST ORDERA BLES Final Result [facility] [address] [place] [address], [facility] * (ABNORMAL) Renal Function Panel w/EGFR (03/24/2022 7:39 AM EDT) Sodium 130(L) 133 - 146 mmol/L 03/24/2022 8:32 AM EDT [facility] Potassium 4.9 3.5 - 5.3 mmol/L 03/24/2022 8:32 AM EDT [facility] Chloride 94(L) 98 - 110 mmol/L 03/24/2022 8:32 AM EDT [facility] CO2 24 21 - 33 mmol/L 03/24/2022 8:32 AM EDT [facility] Anion Gap 12 3 - 16 mmol/L 03/24/2022 8:32 AM EDT [facility] BUN 40(H) 7 - 25 mg/dL 03/24/2022 8:32 AM EDT [facility] Creatinine 6.97(H) 0.60 - 1.30 mg/dL 03/24/2022 8:32 AM EDT [facility] Glucose 101(H) 70 - 100 mg/dL 03/24/2022 8:32 AM EDT [facility] Calcium 8.0(L) 8.6 - 10.3 mg/dL 03/24/2022 8:32 AM EDT [facility] Phosphorus 3.9 2.1 - 4.7 mg/dL 03/24/2022 8:32 AM EDT [facility] Albumin 4.1 3.5 - 5.7 g/dL 03/24/2022 8:32 AM EDT [facility] Osmolality, Calculated 280 278 - 305 mOsm/kg 03/24/2022 8:32 AM EDT [facility] EGFR 9 03/24/2022 8:32 AM EDT [facility] Comment:As of 2021, the [...] ORDERABLES Final Resu lt Performing Organization Address City/State/[facility] Co de Phone Number [facility] [address] * (ABNORMAL) CBC (03/24/2022 7:39 AM EDT) WBC 2.8(L) 3.8 - 10.8 10E3/uL 03/24/2022 8:37 AM EDT [facility] Comment:WBCs are consistent with smear. RBC 2.49(L) 4.20 - 5.80 10E6/uL 03/24/2022 8:37 AM EDT [facility] Hemoglobin 8.4(L) 13.2 - 17.1 g/dL 03/24/2022 8:37 AM EDT [facility] Hematocrit 24.6(L) 38.5 - 50.0 % 03/24/2022 8:37 AM EDT [facility] MCV 99.0 80.0 - 100.0 fL 03/24/2022 8:37 AM EDT [facility] MCH 34.0(H) 27.0 - 33.0 pg 03/24/2022 8:37 AM EDT [facility] MCHC 34.3 32.0 - 36.0 g/dL 03/24/2022 8:37 AM EDT [facility] RDW 14.0 11.0 - 15.0 % 03/24/2022 8:37 AM EDT [facility] Platelets 160 140 - 400 10E3/uL 03/24/2022 8:37 AM EDT [facility] Comment:Specimen checked for clots. None detected. MPV 7.3(L) 7.5 - 11.5 fL 03/24/2022 8:37 AM EDT [facility] Whole Blood 03/24/2022 7:39 AM EDT 03/24/2022 8:00 AM EDT Laura Gonzalez MD LAB BLOOD ORDERABLES Final Resu lt [facility] [address] * Magnesium (03/24/2022 7:39 AM EDT) Magnesium 1.9 1.5 - 2.5 mg/dL 03/24/2022 8:32 AM EDT [facility] Plasma 03/24/2022 7:39 AM EDT 03/24/2022 8:00 AM EDT Laura Gonzalez MD LAB BLOOD ORDERABLES Final Resu lt Performing Organization Address City/[facility]/ZIP Co de Phone Number [facility] [address] * Vitamin B12 (03/24/2022 7:39 AM EDT) Vitamin B-12 325 180 - 914 pg/mL 03/24/2022 8:52 AM EDT [facility] Serum 03/24/2022 7:39 AM EDT 03/24/2022 8:00 AM EDT Claudia ColmenaresD LAB BLOOD ORDERABLES Yoselin l Result Performing Organization Address City/[facility]/ZIP Co de Phone Number [facility] [address] * Folate (Folic Acid) (03/24/2022 7:39 AM EDT) Folic Acid 15.40 5.90 - 24.80 ng/mL 03/24/2022 8:50 AM EDT [facility] Serum 03/24/2022 7:39 AM EDT 03/24/2022 8:00 AM EDT Claudia Landon PharmD LAB BLOOD ORDERABLES Yoselin l Result Performing Organization Address City/[facility] Co de Phone Number [facility] [address] [place] [address] * RACHAEL RHYTHM STRIP - SCAN (03/23/2022 11:05 PM EDT) us Scanning Uchhim SCAN DOCS - NO RESULTS Final Res ult * (ABNORMAL) POC Glucose Monitoring Device (03/23/2022 9:14 PM EDT) POC Glucose Monitoring Device 175(H) 70 - 100 mg/dL 03/23/2022 9:15 PM EDT [facility] Blood 03/23/2022 9:14 PM EDT 03/23/2022 9:15 PM EDT Kelsey Carcamo MD POINT OF CARE TEST ORDERA BLES Final Result Performing Organization Address [facility] Co de Phone Number [facility] [address] [place] [address] * (ABNORMAL) POC Glucose Monitoring Device (03/23/2022 5:23 PM EDT) POC Glucose Monitoring Device 122(H) 70 - 100 mg/dL 03/23/2022 5:24 PM EDT [facility] Blood 03/23/2022 5:23 PM EDT 03/23/2022 5:23 PM EDT Kelsey Carcamo MD POINT OF CARE TEST ORDERA BLES Final Result Performing Organization Address [facility]/ZIP Co de Phone Number [facility] [address] * (ABNORMAL) POC Glucose Monitoring Device (03/23/2022 12:15 PM EDT) POC Glucose Monitoring Device 161(H) 70 - 100 mg/dL 03/23/2022 12:26 PM EDT [facility] Blood 03/23/2022 12:1 5 PM EDT 03/23/2022 12:26 PM EDT us Kelsey Carcamo MD POINT OF CARE TEST ORDERA YANI Final Result [facility] [address] * Endoscopy, colon, diagnostic (03/23/2022 9:13 AM EDT) 03/23/2022 9:13 AM EDT Narrative [facility] - 03/23/2022 9:51 AM EDT [id number] Procedure Date: 03/23/2022 9:13 AM ? Patient [...] verified by the physician, the nurse, the shellac polisher ? and the heavy equipment technician in the procedure room. Mental ? [...] Procedure Code(s): ? --- Professional --- ? 82379, , Colonoscopy, flexible; diagnostic, ? including collection of specimen(s) by brushing or ? washing, when performed (separate procedure) Diagnosis Code(s): ? --- Professional --- ? K64.8, Other hemorrhoids ? K92.1, Melena (includes Hematochezia) CPT copyright 2020 [employer]. All rights reserved. The codes documented in this report are preliminary and upon melting operator review may be revised to meet current compliance requirements. ROXANN MOORE Roxann Moore, 03/23/2022 9:51:42 AM Husam Wilmer Hoyos, 03/23/2022 9:50:30 AM Scope Withdrawal Time 0 hours 8 minutes 24 seconds Total Procedure Duration Time 0 hours 15 minutes 38 seconds Scope In: 9:18:06 AM Scope Out: 9:33:44 AM ? [address] [place], [place] [address] us Provider Not In System GI PROCEDURE ORDERABLES F inal Result [facility] [address] [facility] [place] [address] * UPPER GI ENDOSCOPY (03/23/2022 9:04 AM EDT) 03/23/2022 9:04 AM EDT Narrative [facility] - 03/23/2022 9:49 AM EDT [id number] Procedure Date: 03/23/2022 9:04 AM ? Patient [...] reports history of gastric ulcers. Providers: ? YesWilmer De Luna (Fellow) Referring MD: ?Provider Not in System [...] verified by the physician, the nurse, the shellac polisher ? and the heavy equipment technician in the procedure room. Mental ? [...] Procedure Code(s): ? --- Professional --- ? 01257, Esophagogastroduodenoscopy, flexible, ? transoral; with biopsy, single or multiple Diagnosis Code(s): ? --- Professional --- ? K44.9, Diaphragmatic hernia without obstruction or ? gangrene ? K25.9, Gastric ulcer, unspecified as acute or chronic, ? without hemorrhage or perforation ? K31.89, Other diseases of stomach and duodenum ? R10.13, Epigastric pain CPT copyright 2020 [employer]. All rights reserved. The codes documented in this report are preliminary and upon melting operator review may be revised to meet current compliance requirements. ROXANN MOORE Roxann Moore, 03/23/2022 9:49:40 AM Husam Wilmer Hoyos, 03/23/2022 9:45:30 AM Total Procedure Duration Time 0 hours 7 minutes 26 seconds Scope In: 9:03:43 AM Scope Out: 9:11:09 AM ? [address] [place], [place] [address] us Provider Not In System PROCEDURE/MINOR SURGICAL ORDERABLES Final Result Performing Organization Address [facility] Co de Phone Number [facility] [address] [facility] [place] [address] * (ABNORMAL) POC Glucose Monitoring Device (03/23/2022 8:29 AM EDT) POC Glucose Monitoring Device 101(H) 70 - 100 mg/dL 03/23/2022 8:29 AM EDT [facility] Blood 03/23/2022 8:29 AM EDT 03/23/2022 8:29 AM EDT us Kelsey Carcamo MD POINT OF CARE TEST ORDERA BLES Final Result Performing Organization Address [facility] de Phone Number [address] * RACHAEL RHYTHM STRIP - SCAN (03/23/2022 7:15 AM EDT) us Scanning [employer] SCAN DOCS - NO RESULTS Final Res ult * Magnesium, AM (03/23/2022 5:55 AM EDT) Magnesium 1.9 1.5 - 2.5 mg/dL 03/23/2022 7:03 AM EDT [facility] Plasma 03/23/2022 5:55 AM EDT 03/23/2022 6:26 AM EDT us Chito Santizo MD LAB BLOOD ORDERABLES Final Res ult Performing Organization Address [facility] de Phone Number [address] * (ABNORMAL) Renal Function Panel w/EGFR (03/23/2022 5:55 AM EDT) Sodium 133 133 - 146 mmol/L 03/23/2022 7:03 AM EDT [facility] Potassium 4.8 3.5 - 5.3 mmol/L 03/23/2022 7:03 AM EDT [facility] Chloride 97(L) 98 - 110 mmol/L 03/23/2022 7:03 AM EDT [facility] CO2 25 21 - 33 mmol/L 03/23/2022 7:03 AM EDT [facility] Anion Gap 11 3 - 16 mmol/L 03/23/2022 7:03 AM EDT [facility] BUN 28(H) 7 - 25 mg/dL 03/23/2022 7:03 AM EDT [facility] Creatinine 5.65(H) 0.60 - 1.30 mg/dL 03/23/2022 7:03 AM EDT [facility] Glucose 87 70 - 100 mg/dL 03/23/2022 7:03 AM EDT [facility] Calcium 8.4(L) 8.6 - 10.3 mg/dL 03/23/2022 7:03 AM EDT [facility] Phosphorus 3.6 2.1 - 4.7 mg/dL 03/23/2022 7:03 AM EDT [facility] Albumin 4.2 3.5 - 5.7 g/dL 03/23/2022 7:03 AM EDT [facility] Osmolality, Calculated 281 278 - 305 mOsm/kg 03/23/2022 7:[address] EGFR 12 03/23/2022 7:03 AM EDT [facility] Comment:As of 2021, the [...] 5:55 AM EDT 03/23/2022 6:26 AM EDT Chito Santizo MD LAB BLOOD ORDERABLES Final Res ult Performing Organization Address City/[facility]/ZIP Co de Phone Number [facility] [address] [id number], [facility] * (ABNORMAL) CBC, AM (03/23/2022 5:55 AM EDT) WBC 3.1(L) 3.8 - 10.8 10E3/uL 03/23/2022 6:35 AM EDT [facility] RBC 2.68(L) 4.20 - 5.80 10E6/uL 03/23/2022 6:35 AM EDT [facility] Hemoglobin 9.0(L) 13.2 - 17.1 g/dL 03/23/2022 6:35 AM EDT [facility] Hematocrit 26.8(L) 38.5 - 50.0 % 03/23/2022 6:35 AM EDT [facility] MCV 100.0 80.0 - 100.0 fL 03/23/2022 6:35 AM EDT [facility] MCH 33.6(H) 27.0 - 33.0 pg 03/23/2022 6:35 AM EDT [facility] MCHC 33.6 32.0 - 36.0 g/dL 03/23/2022 6:35 AM EDT [facility] RDW 14.1 11.0 - 15.0 % 03/23/2022 6:35 AM EDT [facility] Platelets 160 140 - 400 10E3/uL 03/23/2022 6:35 AM EDT [facility] MPV 7.4(L) 7.5 - 11.5 fL 03/23/2022 6:35 AM EDT [facility] Whole Blood 03/23/2022 5:55 AM EDT 03/23/2022 6:26 AM EDT Chito Santizo MD LAB BLOOD ORDERABLES Final Res ult [facility] [address] * RACHAEL RHYTHM STRIP - SCAN (03/23/2022 1:53 AM EDT) us Scanning Uchhim SCAN DOCS - NO RESULTS Final Res ult * (ABNORMAL) POC Glucose Monitoring Device (03/23/2022 12:03 AM EDT) POC Glucose Monitoring Device 161(H) 70 - 100 mg/dL 03/23/2022 12:14 AM EDT [facility] Blood 03/23/2022 12:0 3 AM EDT 03/23/2022 12:13 AM EDT Kelsey Carcamo MD POINT OF CARE TEST ORDERA BLES Final Result [facility] [address] [place] [address] * Surgical Pathology Exam (03/23/2022 12:00 AM EDT) 03/23/2022 03/23/2022 Narrative [facility] - 03/23/2022 12:00 AM EDT CASE: [id number] PATIENT: LEONCIO ROLLINS Clinical History: ?? egd with biopsy Pre-Operative Diagnosis: anemia, unspecified type Post-Operative Diagnosis: ? gastritis, hiatal hernia, gastric ulcers, internal hemorrhoids Specimen(s) Submitted: ?? A. gastric bx r/o hp, cmv, hsv CPT Code(s): ?? 43378 X 1; 33261 X 2; 37200 X 1 Additional Information: FINAL DIAGNOSIS: Stomach, biopsy: - ??Minimal inactive chronic gastritis. - ??ImmunostainS for H. pylori, CMV and HSV are negative. - ??Negative for intestinal metaplasia or dysplasia. CRUZITO/bhakti Gross Description: Received in formalin, labeled with the patient's name Leoncio Rollins and gastric bx rule out H. pylori, CMV, HSV is a 0.4 cm gaytan tissue fragment, which is filtered into a biopsy bag and entirely submitted in cassette [id number]. ??(NAVNEET Gotti/faye) Microscopic Description: Two HE and three immunostain (H. pylori, CMV and HSV) slides examined. CRUZITO/bhakti Hernandez, the attending pathologist, have personally reviewed all prosector/resident work and pathology slides to determine final diagnosis. Some tests use analyte-specific reagents (ASRs). These tests were developed and their performance characteristics determined by [facility]. They have not been cleared [...] developed and their performance characteristics determined by [facility] Pathology. They have not been [...] Pathologist signing this report is located at [facility], [address] [place] [address], [place], [place], [id number], , CLIA ID: [id number] us Roxann Moore MD PATHOLOGY/CYTOLOGY ORDERABLES Final Result [facility] * (ABNORMAL) POC Glucose Monitoring Device (03/22/2022 5:37 PM EDT) [facility] POC Glucose Monitoring Device 174(H) 70 - 100 mg/dL 03/22/2022 5:38 PM EDT [facility] Blood 03/22/2022 5:37 PM EDT 03/22/2022 5:38 PM EDT us Kelsey Carcamo MD POINT OF CARE TEST ORDERA BLES Final Result [facility] [address] * Magnesium (03/22/2022 2:51 PM EDT) [facility] Magnesium 1.8 1.5 - 2.5 mg/dL 03/22/2022 3:55 PM EDT [facility] Plasma 03/22/2022 2:51 PM EDT 03/22/2022 3:10 PM EDT Chito Santizo MD LAB BLOOD ORDERABLES Final Res ult [facility] [address] * (ABNORMAL) Renal Function Panel w/EGFR (03/22/2022 2:51 PM EDT) [facility] Sodium 135 133 - 146 mmol/L 03/22/2022 3:55 PM EDT [facility] Potassium 4.4 3.5 - 5.3 mmol/L 03/22/2022 3:55 PM EDT [facility] Chloride 98 98 - 110 mmol/L 03/22/2022 3:55 PM EDT [facility] CO2 28 21 - 33 mmol/L 03/22/2022 3:55 PM EDT [facility] Anion Gap 9 3 - 16 mmol/L 03/22/2022 3:55 PM EDT [facility] BUN 21 7 - 25 mg/dL 03/22/2022 3:55 PM EDT [facility] Creatinine 4.36(H) 0.60 - 1.30 mg/dL 03/22/2022 3:55 PM EDT [facility] Glucose 191(H) 70 - 100 mg/dL 03/22/2022 3:55 PM EDT [facility] Calcium 8.7 8.6 - 10.3 mg/dL 03/22/2022 3:55 PM EDT [facility] Phosphorus 2.5 2.1 - 4.7 mg/dL 03/22/2022 3:55 PM EDT [facility] Albumin 4.1 3.5 - 5.7 g/dL 03/22/2022 3:55 PM EDT [facility] Osmolality, Calculated 288 278 - 305 mOsm/kg 03/22/2022 3:55 PM EDT [facility] EGFR 16 03/22/2022 3:55 PM EDT [facility] Comment:As of 2021, the [...] MD LAB BLOOD ORDERABLES Final Res ult [facility] [address] [place], [place] [address] * (ABNORMAL) POC Glucose Monitoring Device (03/22/2022 1:20 PM EDT) POC Glucose Monitoring Device 155(H) 70 - 100 mg/dL 03/22/2022 1:31 PM EDT [facility] Blood 03/22/2022 1:20 PM EDT 03/22/2022 1:31 PM EDT Kelsey Carcamo MD POINT OF CARE TEST ORDERA BLES Final Result Performing Organization Address [facility]/ZIP Co de Phone Number [facility] [address] [place] [address] * (ABNORMAL) POC Glucose Monitoring Device (03/22/2022 7:51 AM EDT) POC Glucose Monitoring Device 138(H) 70 - 100 mg/dL 03/22/2022 7:53 AM EDT [facility] Blood 03/22/2022 7:51 AM EDT 03/22/2022 7:53 AM EDT Kelsey Carcamo MD POINT OF CARE TEST ORDERA BLES Final Result Performing Organization Address [facility] de Phone Number [facility] [address] [place] [address] * (ABNORMAL) Renal Function Panel w/EGFR (03/22/2022 6:22 AM EDT) Sodium 133 133 - 146 mmol/L 03/22/2022 7:43 AM EDT [facility] Potassium 5.8(H) 3.5 - 5.3 mmol/L 03/22/2022 7:43 AM EDT [facility] Comment:Hemolysis Present: R esults may be influenced artificially. Recommend recollection as clinically indicated. Chloride 98 98 - 110 mmol/L 03/22/2022 7:43 AM EDT [facility] CO2 25 21 - 33 mmol/L 03/22/2022 7:43 AM EDT [facility] Anion Gap 10 3 - 16 mmol/L 03/22/2022 7:43 AM EDT [facility] BUN 37(H) 7 - 25 mg/dL 03/22/2022 7:43 AM EDT [facility] Creatinine 6.58(H) 0.60 - 1.30 mg/dL 03/22/2022 7:43 AM EDT [facility] Glucose 123(H) 70 - 100 mg/dL 03/22/2022 7:43 AM EDT [facility] Calcium 8.4(L) 8.6 - 10.3 mg/dL 03/22/2022 7:43 AM EDT [facility] Phosphorus 3.7 2.1 - 4.7 mg/dL 03/22/2022 7:43 AM EDT [facility] Comment:HEMOLYSIS EVIDENT. R ESULTS MAY BE INFLUENCED. Albumin 3.9 3.5 - 5.7 g/dL 03/22/2022 7:43 AM EDT [facility] Osmolality, Calculated 286 278 - 305 mOsm/kg 03/22/2022 7:43 AM EDT [facility] EGFR 10 03/22/2022 7:43 AM EDT [facility] Comment:As of 2021, the [...] MD LAB BLOOD ORDERABLES Final Resul t [facility] [address] [id number] * Magnesium (03/22/2022 6:22 AM EDT) Magnesium 1.9 1.5 - 2.5 mg/dL 03/22/2022 7:43 AM EDT [facility] Comment:HEMOLYSIS EVIDENT. R ESULTS MAY BE INFLUENCED. Plasma 03/22/2022 6:22 AM EDT 03/22/2022 7:02 AM EDT Irina Craven MD LAB BLOOD ORDERABLES Final Resul t [facility] [address] * (ABNORMAL) CBC (03/22/2022 6:22 AM EDT) WBC 3.0(L) 3.8 - 10.8 10E3/uL 03/22/2022 7:11 AM EDT [facility] RBC 2.50(L) 4.20 - 5.80 10E6/uL 03/22/2022 7:11 AM EDT [facility] Hemoglobin 8.3(L) 13.2 - 17.1 g/dL 03/22/2022 7:11 AM EDT [facility] Hematocrit 25.3(L) 38.5 - 50.0 % 03/22/2022 7:11 AM EDT [facility] MCV 101.1(H) 80.0 - 100.0 fL 03/22/2022 7:11 AM EDT [facility] MCH 33.2(H) 27.0 - 33.0 pg 03/22/2022 7:11 AM EDT [facility] MCHC 32.8 32.0 - 36.0 g/dL 03/22/2022 7:11 AM EDT [facility] RDW 14.5 11.0 - 15.0 % 03/22/2022 7:11 AM EDT [facility] Platelets 161 140 - 400 10E3/uL 03/22/2022 7:11 AM EDT [facility] MPV 7.8 7.5 - 11.5 fL 03/22/2022 7:11 AM EDT [facility] Whole Blood 03/22/2022 6:22 AM EDT 03/22/2022 7:03 AM EDT Irina Craven MD LAB BLOOD ORDERABLES Final Resul t [facility] [address] * (ABNORMAL) POC Glucose Monitoring Device (03/21/2022 4:47 PM EDT) POC Glucose Monitoring Device 151(H) 70 - 100 mg/dL 03/21/2022 4:48 PM EDT [facility] Blood 03/21/2022 4:47 PM EDT 03/21/2022 4:48 PM EDT us Kelsey Carcamo MD POINT OF CARE TEST ORDERA BLES Final Result [facility] [address] * (ABNORMAL) Basic Metabolic Panel (03/21/2022 12:19 PM EDT) Pathologist [facility] Sodium 136 133 - 146 mmol/L 03/21/2022 1:11 PM EDT [facility] Potassium 4.6 3.5 - 5.3 mmol/L 03/21/2022 1:11 PM EDT [facility] Chloride 100 98 - 110 mmol/L 03/21/2022 1:11 PM EDT [facility] CO2 26 21 - 33 mmol/L 03/21/2022 1:11 PM EDT [facility] Anion Gap 10 3 - 16 mmol/L 03/21/2022 1:11 PM EDT [facility] BUN 25 7 - 25 mg/dL 03/21/2022 1:11 PM EDT [facility] Creatinine 5.05(H) 0.60 - 1.30 mg/dL 03/21/2022 1:11 PM EDT [facility] Glucose 153(H) 70 - 100 mg/dL 03/21/2022 1:11 PM EDT [facility] Calcium 8.9 8.6 - 10.3 mg/dL 03/21/2022 1:11 PM EDT [facility] Osmolality, Calculated 289 278 - 305 mOsm/kg 03/21/2022 1:11 PM EDT [facility] EGFR 13 03/21/2022 1:11 PM EDT [facility] Comment:As of 2021, the [...] 9 PM EDT 03/21/2022 12:40 PM EDT Lali Loo MD LAB BLOOD ORDERABLES Final Resu lt Performing Organization Address City/[facility]/ZIP Co de Phone Number [facility] [address] [place] [address] * (ABNORMAL) Hemoglobin, Blood Gas (03/21/2022 11:53 AM EDT) Hgb, blood gas 9.1(L) 14.0 - 18.0 g/dL 03/21/2022 12:00 PM EDT [facility] Blood, Arterial 03/21/2022 1 1:53 AM EDT 03/21/2022 11:58 AM EDT Ana Mercado MD LAB BLOOD ORDERABLES Final Resu lt Performing Organization Address [facility]/ZIP Co de Phone Number [facility] [address] [place] [address] * (ABNORMAL) VENOUS O2 SAT, MEASURED (03/21/2022 11:53 AM EDT) %HBO2, Venous 67.1 40.0 - 70.0 % 03/21/2022 12:00 PM EDT [facility] Carboxyhemoglo bin, Venous 1.9 0.0 - 2.0 % 03/21/2022 12:00 PM EDT [facility] Comment: CARBOXYHEMOGLOBIN (CO) REFERENCE RANGES: Non-Smokers: ??<2 % ? Smokers: ??<8 % TOXIC: >20 % Methemoglobin, Venous 0.9 0.0 - 1.5 % 03/21/2022 12:00 PM EDT [facility] Reduced hemoglobin, Venous 30.1(H) 0.0 - 5.0 % 03/21/2022 12:00 PM EDT [facility] Blood, Venous 03/21/2022 11: 53 AM EDT 03/21/2022 11:58 AM EDT Ana Mercado MD LAB BLOOD ORDERABLES Final Resu lt Performing Organization Address [facility] de Phone Number [facility] [address] * (ABNORMAL) POC Glucose Monitoring Device (03/21/2022 11:46 AM EDT) POC Glucose Monitoring Device 169(H) 70 - 100 mg/dL 03/21/2022 11:47 AM EDT [facility] Blood 03/21/2022 11:4 6 AM EDT 03/21/2022 11:47 AM EDT Kelsey Carcamo MD POINT OF CARE TEST ORDERA BLES Final Result Performing Organization Address City/[facility] Co de Phone Number [facility] [address] [place] [address] * (ABNORMAL) POC Glucose Monitoring Device (03/21/2022 8:39 AM EDT) POC Glucose Monitoring Device 159(H) 70 - 100 mg/dL 03/21/2022 8:40 AM EDT [facility] Blood 03/21/2022 8:39 AM EDT 03/21/2022 8:39 AM EDT Kelsey Carcamo MD POINT OF CARE TEST ORDERA BLES Final Result [facility] [address] * Magnesium (03/21/2022 5:12 AM EDT) Magnesium 1.9 1.5 - 2.5 mg/dL 03/21/2022 5:53 AM EDT [facility] Plasma 03/21/2022 5:12 AM EDT 03/21/2022 5:21 AM EDT Dariela Wood MD LAB BLOOD ORDERABLES Final Resu lt Performing Organization Address City/[facility]/ZIP Co de Phone Number [facility] [address] * (ABNORMAL) CBC (03/21/2022 5:12 AM EDT) WBC 3.2(L) 3.8 - 10.8 10E3/uL 03/21/2022 5:31 AM EDT [facility] RBC 2.51(L) 4.20 - 5.80 10E6/uL 03/21/2022 5:31 AM EDT [facility] Hemoglobin 8.5(L) 13.2 - 17.1 g/dL 03/21/2022 5:31 AM EDT [facility] Hematocrit 25.5(L) 38.5 - 50.0 % 03/21/2022 5:31 AM EDT [facility] MCV 101.4(H) 80.0 - 100.0 fL 03/21/2022 5:31 AM EDT [facility] MCH 33.9(H) 27.0 - 33.0 pg 03/21/2022 5:31 AM EDT [facility] MCHC 33.4 32.0 - 36.0 g/dL 03/21/2022 5:31 AM EDT [facility] RDW 14.3 11.0 - 15.0 % 03/21/2022 5:31 AM EDT [facility] Platelets 161 140 - 400 10E3/uL 03/21/2022 5:31 AM EDT [facility] MPV 7.1(L) 7.5 - 11.5 fL 03/21/2022 5:31 AM EDT [facility] Whole Blood 03/21/2022 5:12 AM EDT 03/21/2022 5:21 AM EDT us Dariela Wood MD LAB BLOOD ORDERABLES Final Resu lt [facility] [address] * (ABNORMAL) Renal Function Panel w/EGFR (03/21/2022 5:12 AM EDT) Sodium 134 133 - 146 mmol/L 03/21/2022 5:53 AM EDT [facility] Potassium 5.5(H) 3.5 - 5.3 mmol/L 03/21/2022 5:53 AM EDT [facility] Chloride 100 98 - 110 mmol/L 03/21/2022 5:53 AM EDT [facility] CO2 23 21 - 33 mmol/L 03/21/2022 5:53 AM EDT [facility] Anion Gap 11 3 - 16 mmol/L 03/21/2022 5:53 AM EDT [facility] BUN 45(H) 7 - 25 mg/dL 03/21/2022 5:53 AM EDT [facility] Creatinine 8.16(H) 0.60 - 1.30 mg/dL 03/21/2022 5:53 AM EDT [facility] Glucose 108(H) 70 - 100 mg/dL 03/21/2022 5:53 AM EDT [facility] Calcium 8.5(L) 8.6 - 10.3 mg/dL 03/21/2022 5:53 AM EDT [facility] Phosphorus 5.3(H) 2.1 - 4.7 mg/dL 03/21/2022 5:53 AM EDT [facility] Albumin 4.0 3.5 - 5.7 g/dL 03/21/2022 5:53 AM EDT [facility] Osmolality, Calculated 290 278 - 305 mOsm/kg 03/21/2022 5:53 AM EDT [facility] EGFR 7 03/21/2022 5:53 AM EDT [facility] Comment:As of 2021, the [...] 5:12 AM EDT 03/21/2022 5:21 AM EDT Dariela Wood MD LAB BLOOD ORDERABLES Final Resu lt Performing Organization Address City/[facility]/ZIP Co de Phone Number [facility] [address] * (ABNORMAL) Hemoglobin, Blood Gas (03/20/2022 9:59 PM EDT) Pathologist [facility] Hgb, blood gas 9.0(L) 14.0 - 18.0 g/dL 03/20/2022 10:08 PM EDT [facility] Blood, Arterial 03/20/2022 9 :59 PM EDT 03/20/2022 10:07 PM EDT Ana Mercado MD LAB BLOOD ORDERABLES Final Resu lt [facility] [address] [place] [address] * (ABNORMAL) Venous O2 SAT, Measured (03/20/2022 9:59 PM EDT) %HBO2, Venous 59.3 40.0 - 70.0 % 03/20/2022 10:08 PM EDT [facility] Carboxyhemoglo bin, Venous 1.7 0.0 - 2.0 % 03/20/2022 10:08 PM EDT [facility] Comment: CARBOXYHEMOGLOBIN (CO) REFERENCE RANGES: Non-Smokers: ??<2 % ? Smokers: ??<8 % TOXIC: >20 % Methemoglobin, Venous 0.7 0.0 - 1.5 % 03/20/2022 10:08 PM EDT [facility] Reduced hemoglobin, Venous 38.3(H) 0.0 - 5.0 % 03/20/2022 10:08 PM EDT [facility] Blood, Venous 03/20/2022 9:5 9 PM EDT 03/20/2022 10:06 PM EDT Ana Mercado MD LAB BLOOD ORDERABLES Final Resu lt Performing Organization Address [facility] Co de Phone Number [facility] [address] * RACHAEL RHYTHM STRIP - SCAN (03/20/2022 6:29 PM EDT) us Scanning [employer] SCAN DOCS - NO RESULTS Final Res ult * (ABNORMAL) Hemoglobin, Blood Gas (03/20/2022 5:28 PM EDT) Hgb, blood gas 9.1(L) 14.0 - 18.0 g/dL 03/20/2022 5:32 PM EDT [facility] Blood, Venous 03/20/2022 5:2 8 PM EDT 03/20/2022 5:31 PM EDT Ana Mercado MD LAB BLOOD ORDERABLES Final Resu lt Performing Organization Address [facility]/ZIP Co de Phone Number [facility] [address] * (ABNORMAL) Venous O2 SAT, Measured (03/20/2022 5:28 PM EDT) %HBO2, Venous 62.9 40.0 - 70.0 % 03/20/2022 5:32 PM EDT [facility] Carboxyhemoglo bin, Venous 1.5 0.0 - 2.0 % 03/20/2022 5:32 PM EDT [facility] Comment: CARBOXYHEMOGLOBIN (CO) REFERENCE RANGES: Non-Smokers: ??<2 % ? Smokers: ??<8 % TOXIC: >20 % Methemoglobin, Venous 1.1 0.0 - 1.5 % 03/20/2022 5:32 PM EDT [facility] Reduced hemoglobin, Venous 34.5(H) 0.0 - 5.0 % 03/20/2022 5:32 PM EDT [facility] Blood, Venous 03/20/2022 5:2 8 PM EDT 03/20/2022 5:31 PM EDT us Ana Mercado MD LAB BLOOD ORDERABLES Final Resu lt Performing Organization Address City/[facility]/ZIP Co de Phone Number [facility] [address] * (ABNORMAL) POC Glucose Monitoring Device (03/20/2022 5:21 PM EDT) POC Glucose Monitoring Device 124(H) 70 - 100 mg/dL 03/20/2022 5:22 PM EDT [facility] Blood 03/20/2022 5:21 PM EDT 03/20/2022 5:22 PM EDT Kelsey Carcamo MD POINT OF CARE TEST ORDERA BLES Final Result Performing Organization Address [facility]/ZIP Co de Phone Number [facility] [address] * (ABNORMAL) POC Glucose Monitoring Device (03/20/2022 11:37 AM EDT) POC Glucose Monitoring Device 165(H) 70 - 100 mg/dL 03/20/2022 11:38 AM EDT [facility] Blood 03/20/2022 11:3 7 AM EDT 03/20/2022 11:38 AM EDT Kelsey Carcamo MD POINT OF CARE TEST ORDERA BLES Final Result Performing Organization Address [facility] de Phone Number [facility] [address] [place] [address] * (ABNORMAL) Cyclosporine level (03/20/2022 9:28 AM EDT) Cyclosporine, LC/MS 42.2(L) 100.0 - 350.0 ng/mL 03/20/2022 2:47 PM EDT [facility] Comment:Performed via liquid chromatography tandem mass spectrometry. Detection limit: 20 ng/mL. Individual target concentrations may vary due to target organ and time after transplant. This test has been developed and its performance characteristics determined by [facility] which is certified under the Clinical [...] ORDERABLES Final Resu lt Performing Organization Address [facility] de Phone Number [facility] [address] [place] [address] * (ABNORMAL) POC Glucose Monitoring Device (03/20/2022 7:43 AM EDT) POC Glucose Monitoring Device 132(H) 70 - 100 mg/dL 03/20/2022 7:44 AM EDT [facility] Blood 03/20/2022 7:43 AM EDT 03/20/2022 7:44 AM EDT Kelsey Carcamo MD POINT OF CARE TEST [place] [id number], [facility] * X-ray Portable Chest (03/20/2022 7:05 AM [...] AM EDT EXAM: XR PORTABLE CHEST INDICATION: [place] catheter placement TECHNIQUE: 1 view of the [...] - 03/20/2022 EXAM: XR PORTABLE CHEST INDICATION: [place] catheter placement TECHNIQUE: 1 view of the [...] - 70.0 % 03/20/2022 4:17 AM EDT [facility] Carboxyhemoglo bin, Venous 1.8 % 03/20/2022 4:17 AM EDT [facility] Comment: CARBOXYHEMOGLOBIN (CO) REFERENCE RANGES: Non-Smokers: ??<2 % ? Smokers: ??<8 % TOXIC: >20 % Methemoglobin, Venous 0.8 0.0 - 1.5 % 03/20/2022 4:17 AM EDT [facility] Reduced hemoglobin, Venous 24.2(H) 0.0 - 5.0 % 03/20/2022 4:17 AM EDT [facility] Blood, Venous 03/20/2022 3:5 8 AM EDT 03/20/2022 4:14 AM EDT Ana Mercado MD LAB BLOOD ORDERABLES Final Resu lt Performing Organization Address City/[facility]/ZIP Co de Phone Number [facility] [address] * (ABNORMAL) Hemoglobin, Blood Gas (03/20/2022 3:58 AM EDT) Hgb, blood gas 8.9(L) 14.0 - 18.0 g/dL 03/20/2022 4:17 AM EDT [facility] Blood, Arterial 03/20/2022 3 :58 AM EDT 03/20/2022 4:14 AM EDT Ana Mercado MD LAB BLOOD ORDERABLES Final Resu lt [facility] [address] * Magnesium (03/20/2022 3:58 AM EDT) Magnesium 2.0 1.5 - 2.5 mg/dL 03/20/2022 4:41 AM EDT [facility] Plasma 03/20/2022 3:58 AM EDT 03/20/2022 4:14 AM EDT Dariela Wood MD LAB BLOOD ORDERABLES Final Resu lt [facility] [address] [place] [id number] * (ABNORMAL) CBC (03/20/2022 3:58 AM EDT) WBC 3.4(L) 3.8 - 10.8 10E3/uL 03/20/2022 4:23 AM EDT [facility] RBC 2.52(L) 4.20 - 5.80 10E6/uL 03/20/2022 4:23 AM EDT [facility] Hemoglobin 8.8(L) 13.2 - 17.1 g/dL 03/20/2022 4:23 AM EDT [facility] Hematocrit 25.8(L) 38.5 - 50.0 % 03/20/2022 4:23 AM EDT [facility] MCV 102.2(H) 80.0 - 100.0 fL 03/20/2022 4:23 AM EDT [facility] MCH 34.8(H) 27.0 - 33.0 pg 03/20/2022 4:23 AM EDT [facility] MCHC 34.0 32.0 - 36.0 g/dL 03/20/2022 4:23 AM EDT [facility] RDW 14.3 11.0 - 15.0 % 03/20/2022 4:23 AM EDT [facility] Platelets 174 140 - 400 10E3/uL 03/20/2022 4:23 AM EDT [facility] MPV 6.8(L) 7.5 - 11.5 fL 03/20/2022 4:23 AM EDT [facility] Whole Blood 03/20/2022 3:58 AM EDT 03/20/2022 4:14 AM EDT Dariela Wood MD LAB BLOOD ORDERABLES Final Resu lt [facility] [address] [place] [address], [facility] * (ABNORMAL) Renal Function Panel w/EGFR (03/20/2022 3:58 AM EDT) Sodium 138 133 - 146 mmol/L 03/20/2022 4:41 AM EDT [facility] Potassium 5.0 3.5 - 5.3 mmol/L 03/20/2022 4:41 AM EDT [facility] Chloride 102 98 - 110 mmol/L 03/20/2022 4:41 AM EDT [facility] CO2 28 21 - 33 mmol/L 03/20/2022 4:41 AM EDT [facility] Anion Gap 8 3 - 16 mmol/L 03/20/2022 4:41 AM EDT [facility] BUN 29(H) 7 - 25 mg/dL 03/20/2022 4:41 AM EDT [facility] Creatinine 6.56(H) 0.60 - 1.30 mg/dL 03/20/2022 4:41 AM EDT [facility] Glucose 129(H) 70 - 100 mg/dL 03/20/2022 4:41 AM EDT [facility] Calcium 8.4(L) 8.6 - 10.3 mg/dL 03/20/2022 4:41 AM EDT [facility] Phosphorus 5.1(H) 2.1 - 4.7 mg/dL 03/20/2022 4:41 AM EDT [facility] Albumin 4.1 3.5 - 5.7 g/dL 03/20/2022 4:41 AM EDT [facility] Osmolality, Calculated 294 278 - 305 mOsm/kg 03/20/2022 4:41 AM EDT [facility] EGFR 10 03/20/2022 4:41 AM EDT [facility] Comment:As of 2021, the [...] ORDERABLES Final Resu lt Performing Organization Address [facility] Co de Phone Number [address] * (ABNORMAL) POC Glucose Monitoring Device (03/19/2022 6:36 PM EDT) POC Glucose Monitoring Device 158(H) 70 - 100 mg/dL 03/19/2022 6:40 PM EDT [facility] Blood 03/19/2022 6:36 PM EDT 03/19/2022 6:39 PM EDT Kelsey Carcamo MD POINT OF CARE TEST ORDERA BLES Final Result Performing Organization Address [facility] Co de Phone Number [facility] [address] [place] [address] * (ABNORMAL) Hemoglobin, Blood Gas (03/19/2022 5:48 PM EDT) Hgb, blood gas 8.9(L) 14.0 - 18.0 g/dL 03/19/2022 5:56 PM EDT [facility] Blood, Venous 03/19/2022 5:4 8 PM EDT 03/19/2022 5:54 PM EDT Ana Mercado MD LAB BLOOD ORDERABLES Final Resu lt Performing Organization Address [facility] Co de Phone Number [facility] [address] * (ABNORMAL) Venous O2 SAT, Measured (03/19/2022 5:48 PM EDT) %HBO2, Venous 73.9(H) 40.0 - 70.0 % 03/19/2022 5:55 PM EDT [facility] Carboxyhemoglo bin, Venous 1.8 % 03/19/2022 5:55 PM EDT [facility] Comment: CARBOXYHEMOGLOBIN (CO) REFERENCE RANGES: Non-Smokers: ??<2 % ? Smokers: ??<8 % TOXIC: >20 % Methemoglobin, Venous 0.6 0.0 - 1.5 % 03/19/2022 5:55 PM EDT [facility] Reduced hemoglobin, Venous 23.7(H) 0.0 - 5.0 % 03/19/2022 5:55 PM EDT [facility] Blood, Venous 03/19/2022 5:4 8 PM EDT 03/19/2022 5:54 PM EDT us Ana Mercado MD LAB BLOOD ORDERABLES Final Resu lt [facility] [address] * (ABNORMAL) POC Glucose Monitoring Device (03/19/2022 11:50 AM EDT) POC Glucose Monitoring Device 137(H) 70 - 100 mg/dL 03/19/2022 11:53 AM EDT [facility] Blood 03/19/2022 11:5 0 AM EDT 03/19/2022 11:52 AM EDT us Kelsey Carcamo MD POINT OF CARE TEST ORDERA BLES Final Result [facility] [address] * X-ray Portable Chest (03/19/2022 11:15 AM [...] Devices: Unchanged appearance of right IJ approach [place]-Viviana catheter. Heart and Mediastinum: Enlarged, but stable. [...] Devices: Unchanged appearance of right IJ approach [place]-Ganzcatheter. Heart and Mediastinum: Enlarged, but stable. Lungs [...] Arellano MD at 03/19/2022 5:05 PM EDT Dariela Wood MD IMG DIAGNOSTIC IMAGING ORDERABL ES Final Result * RACHAEL RHYTHM STRIP - SCAN (03/19/2022 9:48 AM EDT) us Scanning Uchhim SCAN DOCS - NO RESULTS Final Res ult * (ABNORMAL) POC Glucose Monitoring Device (03/19/2022 8:02 AM EDT) POC Glucose Monitoring Device 213(H) 70 - 100 mg/dL 03/19/2022 8:12 AM EDT [facility] Blood 03/19/2022 8:02 AM EDT 03/19/2022 8:12 AM EDT us Kelsey Carcamo MD POINT OF CARE TEST ORDERA BLES Final Result [facility] [address] [place] [address], [facility] * X-ray Portable Chest (03/19/2022 6:26 AM EDT) Anatomical Region Laterality Modality Chest Radiographic Sobia ging 03/19/2022 6:21 AM EDT Impressions 03/19/2022 7:44 AM EDT IMPRESSION: 1. ??[place]-Viviana catheter tip in the left lower lobe [...] priors FINDINGS: Medical Devices: Right IJ approach [place]-Viviana catheter tip projects over the left lower [...] priors FINDINGS: Medical Devices: Right IJ approach [place]-Viviana catheter tip projects overthe left lower lobe pulmonary artery. Heart and Mediastinum: Unchanged cardiomegaly. Lungs and Pleura: Low lung volumes. Unchanged findings of interstitialpulmonary edema. No right pleural effusion. No visible pneumothorax. Bones and Soft tissues: Unchanged. IMPRESSION: 1. [place]-Viviana catheter tip in the left lower lobe [...] Culture Result No Growth After 5 Days [facility] Blood BLOOD SPECIMEN / Unknown 03/19/2022 5:30 AM EDT 03/19/2022 6:18 AM EDT [facility] - 03/24/2022 7:50 AM EDT Three different sites Suboptimal volume of blood received. Interpret results with caution. Interpret results critically. Specimen was collected in bottles Neyda Espinoza MD MICROBIOLOGY - GENERAL ORDERAB LES Final Result Performing Organization Address City/[facility]/ZIP Co de Phone Number [facility] [address] [place] [address] * #2 Blood culture-Peripheral site 2 (03/19/2022 5:30 AM EDT) Culture Result No Growth After 5 Days [facility] Blood BLOOD SPECIMEN / Unknown 03/19/2022 5:30 AM EDT 03/19/2022 6:17 AM EDT [facility] - 03/24/2022 6:21 AM EDT Suboptimal volume of blood received. Interpret results with caution. Neyda Espinoza MD MICROBIOLOGY - GENERAL ORDERAB LES Final Result [facility] [address] [place] [address] * (ABNORMAL) Venous O2 SAT, Measured (03/19/2022 3:46 AM EDT) %HBO2, Venous 66.1 40.0 - 70.0 % 03/19/2022 3:57 AM EDT [facility] Carboxyhemoglo bin, Venous 1.9 0.0 - 2.0 % 03/19/2022 3:57 AM EDT [facility] Comment: CARBOXYHEMOGLOBIN (CO) REFERENCE RANGES: Non-Smokers: ??<2 % ? Smokers: ??<8 % TOXIC: >20 % Methemoglobin, Venous 0.7 0.0 - 1.5 % 03/19/2022 3:57 AM EDT [facility] Reduced hemoglobin, Venous 31.3(H) 0.0 - 5.0 % 03/19/2022 3:57 AM EDT [facility] Blood, Venous 03/19/2022 3:4 6 AM EDT 03/19/2022 3:55 AM EDT Ana Mercado MD LAB BLOOD ORDERABLES Final Resu lt Performing Organization Address [facility] Co de Phone Number [facility] [address] [place] [address] * (ABNORMAL) Hemoglobin, Blood Gas (03/19/2022 3:46 AM EDT) Hgb, blood gas 8.3(L) 14.0 - 18.0 g/dL 03/19/2022 3:56 AM EDT [facility] Blood, Arterial 03/19/2022 3 :46 AM EDT 03/19/2022 3:55 AM EDT Ana Mercado MD LAB BLOOD ORDERABLES Final Resu lt Performing Organization Address City/State/[facility] Co de Phone Number [facility] [address] * Magnesium (03/19/2022 3:46 AM EDT) Magnesium 1.9 1.5 - 2.5 mg/dL 03/19/2022 4:23 AM EDT [facility] Plasma 03/19/2022 3:46 AM EDT 03/19/2022 3:52 AM EDT us Dariela Wood MD LAB BLOOD ORDERABLES Final Resu lt Performing Organization Address City/[facility] Co de Phone Number [facility] [address] [place], [place] [id number], [facility] * (ABNORMAL) CBC (03/19/2022 3:46 AM EDT) WBC 3.2(L) 3.8 - 10.8 10E3/uL 03/19/2022 4:04 AM EDT [facility] RBC 2.44(L) 4.20 - 5.80 10E6/uL 03/19/2022 4:04 AM EDT [facility] Hemoglobin 8.2(L) 13.2 - 17.1 g/dL 03/19/2022 4:04 AM EDT [facility] Hematocrit 24.6(L) 38.5 - 50.0 % 03/19/2022 4:04 AM EDT [facility] MCV 100.8(H) 80.0 - 100.0 fL 03/19/2022 4:04 AM EDT [facility] MCH 33.6(H) 27.0 - 33.0 pg 03/19/2022 4:04 AM EDT [facility] MCHC 33.4 32.0 - 36.0 g/dL 03/19/2022 4:04 AM EDT [facility] RDW 14.1 11.0 - 15.0 % 03/19/2022 4:04 AM EDT [facility] Platelets 166 140 - 400 10E3/uL 03/19/2022 4:04 AM EDT [facility] MPV 7.0(L) 7.5 - 11.5 fL 03/19/2022 4:04 AM EDT [facility] Whole Blood 03/19/2022 3:46 AM EDT 03/19/2022 3:52 AM EDT Dariela Wood MD LAB BLOOD ORDERABLES Final Resu lt [facility] [address] [place] [id number], [facility] * (ABNORMAL) Renal Function Panel w/EGFR (03/19/2022 3:46 AM EDT) Sodium 135 133 - 146 mmol/L 03/19/2022 4:23 AM EDT [facility] Potassium 4.3 3.5 - 5.3 mmol/L 03/19/2022 4:23 AM EDT [facility] Chloride 96(L) 98 - 110 mmol/L 03/19/2022 4:23 AM EDT [facility] CO2 27 21 - 33 mmol/L 03/19/2022 4:23 AM EDT [facility] Anion Gap 12 3 - 16 mmol/L 03/19/2022 4:23 AM EDT [facility] BUN 37(H) 7 - 25 mg/dL 03/19/2022 4:23 AM EDT [facility] Creatinine 7.56(H) 0.60 - 1.30 mg/dL 03/19/2022 4:23 AM EDT [facility] Glucose 180(H) 70 - 100 mg/dL 03/19/2022 4:23 AM EDT [facility] Calcium 8.0(L) 8.6 - 10.3 mg/dL 03/19/2022 4:23 AM EDT [facility] Phosphorus 5.7(H) 2.1 - 4.7 mg/dL 03/19/2022 4:23 AM EDT [facility] Albumin 4.0 3.5 - 5.7 g/dL 03/19/2022 4:23 AM EDT [facility] Osmolality, Calculated 293 278 - 305 mOsm/kg 03/19/2022 4:23 AM EDT [facility] EGFR 8 03/19/2022 4:23 AM EDT [facility] Comment:As of 2021, the [...] MD LAB BLOOD ORDERABLES Final Resu lt [facility] [address] * (ABNORMAL) Differential (03/19/2022 3:46 AM EDT) Neutrophils Relative 66.8 40.0 - 80.0 % 03/19/2022 4:04 AM EDT [facility] Lymphocytes Relative 21.1 15.0 - 45.0 % 03/19/2022 4:04 AM EDT [facility] Monocytes Relative 9.4 0.0 - 12.0 % 03/19/2022 4:04 AM EDT [facility] Eosinophils Relative 2.4 0.0 - 8.0 % 03/19/2022 4:04 AM EDT [facility] Basophils Relative 0.3 0.0 - 1.0 % 03/19/2022 4:04 AM EDT [facility] nRBC 0 0 - 0 /100 WBC 03/19/2022 4:04 AM EDT [facility] Neutrophils Absolute 2,138 1,500 - 7,800 /uL 03/19/2022 4:04 AM EDT [facility] Lymphocytes Absolute 675(L) 850 - 3,900 /uL 03/19/2022 4:04 AM EDT [facility] Monocytes Absolute 301 200 - 950 /uL 03/19/2022 4:04 AM EDT [facility] Eosinophils Absolute 77 15 - 500 /uL 03/19/2022 4:04 AM EDT [facility] Basophils Absolute 10 0 - 200 /uL 03/19/2022 4:04 AM EDT [facility] Whole Blood 03/19/2022 3:46 AM EDT 03/19/2022 3:52 AM EDT us Nadya Ramirez MD LAB BLOOD ORDERABLES Final Resul t [facility] [address] [place] [address], [facility] * Insert Arterial Line (03/18/2022 8:54 PM EDT) Narrative Ana Mercado MD - 03/18/2022 8:54 PM EDT Dariela Wood MD ? 03/18/2022 ??8:55 PM Insert Arterial Line Date/Time: 03/18/2022 8:54 PM Performed by: Dariela Wood MD Authorized by: Dariela Wood MD Consent: ??Consent obtained: ??Written ??Consent given by: ??Patient ??Risks, benefits, and alternatives were discussed: yes ?? [place] protocol: ??Patient identity confirmed: ??Verbally with patient [...] ??Procedure completion: ??Tolerated well, no immediate complications us Dariela Wood MD IV THERAPY ORDERABLES Final Res ult * (ABNORMAL) POC Glucose Monitoring Device (03/18/2022 7:24 PM EDT) POC Glucose Monitoring Device 183(H) 70 - 100 mg/dL 03/18/2022 7:24 PM EDT [facility] Blood 03/18/2022 7:24 PM EDT 03/18/2022 7:24 PM EDT us Kelsey Carcamo MD POINT OF CARE TEST ORDERA BLES Final Result Performing Organization Address City/[facility]/ZIP Co de Phone Number [facility] [address] * (ABNORMAL) POC Glucose Monitoring Device (03/18/2022 1:38 PM EDT) POC Glucose Monitoring Device 154(H) 70 - 100 mg/dL 03/18/2022 1:39 PM EDT [facility] Blood 03/18/2022 1:38 PM EDT 03/18/2022 1:39 PM EDT Kelsey Carcamo MD POINT OF CARE TEST ORDERA BLES Final Result Performing Organization Address [facility] Co de Phone Number [facility] [address] * X-ray Portable Chest (03/18/2022 12:48 [...] Encounter for adjustment and management of VAD, ??[place] cath placement TECHNIQUE: 1 view of the [...] Encounter for adjustment and management of VAD, [place] cathplacement TECHNIQUE: 1 view of the chest. [...] - 18.0 g/dL 03/18/2022 9:37 AM EDT [facility] Blood, Arterial 03/18/2022 9 :32 AM EDT 03/18/2022 9:36 AM EDT Ana Mercado MD LAB BLOOD ORDERABLES Final Resu lt Performing Organization Address City/State/[facility] Co de Phone Number [facility] [address] * (ABNORMAL) VENOUS O2 SAT, MEASURED (03/18/2022 9:32 AM EDT) %HBO2, Venous 63.4 40.0 - 70.0 % 03/18/2022 9:37 AM EDT [facility] Carboxyhemoglo bin, Venous 2.1(H) 0.0 - 2.0 % 03/18/2022 9:37 AM EDT [facility] Comment: CARBOXYHEMOGLOBIN (CO) REFERENCE RANGES: Non-Smokers: ??<2 % ? Smokers: ??<8 % TOXIC: >20 % Methemoglobin, Venous 0.9 0.0 - 1.5 % 03/18/2022 9:37 AM EDT [facility] Reduced hemoglobin, Venous 33.6(H) 0.0 - 5.0 % 03/18/2022 9:37 AM EDT [facility] Blood, Venous 03/18/2022 9:3 2 AM EDT 03/18/2022 9:36 AM EDT us Ana Mercado MD LAB BLOOD ORDERABLES Final Resu lt [facility] [address] * RIGHT HEART CATH (03/18/2022 9:04 AM EDT) 03/18/2022 8:23 AM EDT Narrative [facility] - 03/19/2022 7:58 AM EDT *[facility]* Cardiac Money Laundering Investigator [address] [address] CATHETERIZATION LAB STUDY Patient: ? Rollins, Leoncio ?Age: ?47 ?Study Date: ? 03/18/2022 ? Gender: M ? Study Time: ? 08:23:04 AM : ? 1975 ? HT/WT: ??175.3cm / 135.9kg ? Performing Physician: Oliver Reed MD Ordering Physician: ?? Wilmer Hernandez MD Referring Physician: ??Mandi Mora Fellow: ? MD Sylvain Satnana MD Procedures performed: - Right heart catheterization. IMPRESSIONS: 1. Markedly elevated biventricular pressures. 2. Severe pulmonary hypertension. 3. Preserved cardiac index and output. 4. [place] Sutured in at 57cm. RECOMMENDATIONS: 1. Results discussed with cardiology consult team who recommended leave in [place] and further ?? optimization under the care [...] Right internal jugular vein access. A 4f [employer] mini access kit sheath was advanced into the ?? vessel. 5. Sheath exchange. The sheath was exchanged for a 5in29sg pinnacle sheath. 6. Right heart catheterization. A [...] + ----- + !RV pressure s/d, ed ?!60/15, 15 ?!60, 15 ?! + + + ----- + !NAVNEET argueta a/precious (m) ? ! (30) ? ! () ? ! + + + ----- + !MPA pressure s/d (m) ? ! (40) ? ! (40) ? ! + + + ----- + !Aortic pressure s/d (m) ??!185/ (122) ? !185 (122) ? ! + + + ----- + !SVR ?!718dyn-sec/cm5 ? !768dyn-sec/cm5 ? ! + + + ----- + !SVRI ? !5200abg-kty-k^2/cm5 ?!2074ifm-dnn-n^2/cm5 ?! + + + ----- + !PVR ?!74dyn-sec/cm5 ?!79dyn-sec/cm5 ?! + + + ----- + !PVRI ? !900kzn-mzl-o^2/cm5 ? !464rju-qji-e^2/cm5 ? ! + + + ----- + !Total systemic resistance!903dyn-sec/cm5, 4856euy-iyy-l^2/cm5!966dyn-sec/cm5, 9209eiq-pur-b^2/cm5! + + + ----- + Saturations: + [...] report. Prepared and electronically signed by Oliver Rede MD [id number] [place] [id number] Final Re sult Performing Organization Address City/[facility]/ZIP Co de Phone Number [facility] * CARDIAC CATH DOCUMENTS SCAN (03/18/2022 8:57 AM EDT) us Scanning Uchhim SCAN DOCS - NO RESULTS Final Res ult * Occupational Exposure Screen Reflex (03/18/2022 8:51 AM EDT) HIV-1/HIV-2 Ab Negative Negative 03/18/2022 10:33 AM EDT [facility] Comment:Results called to an d read back by CHRISTOPHER LAMB RN P24 Antigen Negative Negative 03/18/2022 10:33 AM EDT [facility] Serum 03/18/2022 8:51 AM EDT 03/18/2022 9:50 AM EDT Ermelinda Caputo MD LAB BLOOD ORDERABLES Final Re sult Performing Organization Address [facility] Co de Phone Number [facility] [address] [place] [address] * Hepatitis B surface antigen (03/18/2022 8:51 AM EDT) Hep B Surface Ag Nonreactive Nonreactive 03/18/2022 10:51 AM EDT [facility] Comment:Health Department no tified in accordance with reportable infectious disease guidelines. Serum 03/18/2022 8:51 AM EDT 03/18/2022 9:50 AM EDT Narrative [facility] - 03/18/2022 10:51 AM EDT Specimen is considered negative for HBsAg. Ermelinda Caputo MD LAB BLOOD ORDERABLES Final Re sult Performing Organization Address [facility] Co de Phone Number [facility] [address] * Hepatitis C Antibody (03/18/2022 8:51 AM EDT) Pathologist [facility] HCV Ab Nonreactive Nonreactive 03/18/2022 10:55 AM EDT [facility] Comment:Health Department no tified in accordance with reportable infectious disease guidelines. Serum 03/18/2022 8:51 AM EDT 03/18/2022 9:50 AM EDT Narrative [facility] - 03/18/2022 10:55 AM EDT Antibodies to HCV not detected; does not exclude the possibility of exposure to HCV. Ermelinda Caputo MD LAB BLOOD ORDERABLES Final Re sult Performing Organization Address [facility] Co de Phone Number [facility] [address] * (ABNORMAL) POC Oxyhemoglobin (03/18/2022 8:37 AM EDT) [facility] POC Oxyhemoglobin 68.2(L) 95 - 98 % 022 8:34 AM EDT [facility] Comment:SEE CATH REPORT FOR COMPREHENSIVE RESULTS Blood, Arterial 03/18/2022 8 :37 AM EDT 03/18/2022 8:34 AM EDT Kelsey Carcamo MD LAB BLOOD ORDERABLES Yoselin l Result Performing Organization Address [facility] Co de Phone Number [facility] [address] * (ABNORMAL) POC Total Hemoglobin (03/18/2022 8:37 AM EDT) Pathologist [facility] POC Total Hemoglobin 8.4(L) 14.0 - 18.0 g/dL 03/18/2022 8:34 AM EDT [facility] Comment:SEE CATH REPORT FOR COMPREHENSIVE RESULTS Blood, Arterial 03/18/2022 8 :37 AM EDT 03/18/2022 8:34 AM EDT Kelsey Carcamo MD LAB BLOOD ORDERABLES Yoselin l Result [facility] [address] [place] [address] * (ABNORMAL) POC Oxyhemoglobin (03/18/2022 8:33 AM EDT) POC Oxyhemoglobin 70.8(L) 95 - 98 % 022 8:31 AM EDT [facility] Comment:SEE CATH REPORT FOR COMPREHENSIVE RESULTS Blood, Arterial 03/18/2022 8 :33 AM EDT 03/18/2022 8:30 AM EDT Kelsey Carcamo MD LAB BLOOD ORDERABLES Yoselin l Result Performing Organization Address [facility] Co de Phone Number [facility] [address] [place] [address] * (ABNORMAL) POC Total Hemoglobin (03/18/2022 8:33 AM EDT) POC Total Hemoglobin 8.3(L) 14.0 - 18.0 g/dL 03/18/2022 8:31 AM EDT [facility] Comment:SEE CATH REPORT FOR COMPREHENSIVE RESULTS Blood, Arterial 03/18/2022 8 :33 AM EDT 03/18/2022 8:30 AM EDT Kelsey Carcamo MD LAB BLOOD ORDERABLES Yoselin l Result Performing Organization Address City/[facility]/ZIP Co de Phone Number [facility] [address] [place] [address] * #1 Blood culture-Peripheral site 1 (03/18/2022 7:49 AM EDT) Culture Result No Growth After 5 Days [facility] Blood BLOOD SPECIMEN / Unknown 03/18/2022 7:49 AM EDT 03/18/2022 8:17 AM EDT Narrative [facility] - 03/23/2022 8:22 AM EDT Three different sites Suboptimal volume of blood received. Interpret results with caution. us Neyda Espinoza MD MICROBIOLOGY - GENERAL ORDERAB LES Final Result Performing Organization Address City/[facility]/ZIP Co de Phone Number [facility] [address] [place] [address], [facility] * (ABNORMAL) CBC (03/18/2022 4:58 AM EDT) WBC 3.1(L) 3.8 - 10.8 10E3/uL 03/18/2022 7:06 AM EDT [facility] RBC 2.45(L) 4.20 - 5.80 10E6/uL 03/18/2022 7:06 AM EDT [facility] Hemoglobin 8.4(L) 13.2 - 17.1 g/dL 03/18/2022 7:06 AM EDT [facility] Hematocrit 24.9(L) 38.5 - 50.0 % 03/18/2022 7:06 AM EDT [facility] MCV 101.5(H) 80.0 - 100.0 fL 03/18/2022 7:06 AM EDT [facility] MCH 34.0(H) 27.0 - 33.0 pg 03/18/2022 7:06 AM EDT [facility] MCHC 33.5 32.0 - 36.0 g/dL 03/18/2022 7:06 AM EDT [facility] RDW 14.0 11.0 - 15.0 % 03/18/2022 7:06 AM EDT [facility] Platelets 154 140 - 400 10E3/uL 03/18/2022 7:06 AM EDT [facility] MPV 7.4(L) 7.5 - 11.5 fL 03/18/2022 7:06 AM EDT [facility] Whole Blood 03/18/2022 4:58 AM EDT 03/18/2022 6:56 AM EDT Neyda Espinoza MD LAB BLOOD ORDERABLES Final Res ult [facility] [address], [place] [id number] * (ABNORMAL) Renal Function Panel w/EGFR (03/18/2022 4:58 AM EDT) Sodium 138 133 - 146 mmol/L 03/18/2022 7:33 AM EDT [facility] Potassium 4.4 3.5 - 5.3 mmol/L 03/18/2022 7:33 AM EDT [facility] Chloride 94(L) 98 - 110 mmol/L 03/18/2022 7:33 AM EDT [facility] CO2 29 21 - 33 mmol/L 03/18/2022 7:33 AM EDT [facility] Anion Gap 15 3 - 16 mmol/L 03/18/2022 7:33 AM EDT [facility] BUN 60(H) 7 - 25 mg/dL 03/18/2022 7:33 AM EDT [facility] Creatinine 9.96(H) 0.60 - 1.30 mg/dL 03/18/2022 7:33 AM EDT [facility] Glucose 91 70 - 100 mg/dL 03/18/2022 7:33 AM EDT [facility] Calcium 8.3(L) 8.6 - 10.3 mg/dL 03/18/2022 7:33 AM EDT [facility] Phosphorus 7.0(H) 2.1 - 4.7 mg/dL 03/18/2022 7:33 AM EDT [facility] Albumin 4.2 3.5 - 5.7 g/dL 03/18/2022 7:33 AM EDT [facility] Osmolality, Calculated 302 278 - 305 mOsm/kg 03/18/2022 7:33 AM EDT [facility] EGFR 6 03/18/2022 7:33 AM EDT [facility] Comment:As of 2021, the [...] ORDERABLES Final Res ult Performing Organization Address City/[facility]/ZIP Co de Phone Number [facility] [address] [place] [address] * Magnesium (03/18/2022 4:58 AM EDT) Magnesium 2.0 1.5 - 2.5 mg/dL 03/18/2022 7:33 AM EDT [facility] Plasma 03/18/2022 4:58 AM EDT 03/18/2022 6:56 AM EDT Neyda Espinoza MD LAB BLOOD ORDERABLES Final Res ult Performing Organization Address [facility] Co de Phone Number [facility] [address] [place] [address] * (ABNORMAL) POC Glucose Monitoring Device (03/18/2022 3:57 AM EDT) POC Glucose Monitoring Device 123(H) 70 - 100 mg/dL 03/18/2022 3:58 AM EDT [facility] Blood 03/18/2022 3:57 AM EDT 03/18/2022 3:57 AM EDT Kelsey Carcamo MD POINT OF CARE TEST ORDERA BLES Final Result Performing Organization Address [facility] [facility] [place] Co de Phone Number [facility] [address] [place] [address] * ECG 12 lead (MUSE) (03/18/2022 12:43 AM EDT) 03/18/2022 12:4 3 AM EDT Narrative MUSE - 03/19/2022 12:37 AM EDT Ventricular Rate: ??71 ??BPM Atrial Rate: ??71 ??BPM P-R Interval: ??234 ??ms QRS Duration: ??108 ??ms QT: ??472 ??ms QTc: ??512 ??ms P [place]: ??50 ??degrees R [place]: ??71 ??degrees T [place]: ??40 ??degrees Diagnosis Line: ??SINUS RHYTHM WITH 1ST DEGREE A-V BLOCK ^ PROLONGED QT ^ ABNORMAL ECG ^ COMPARED TO THE ECG OF 17-MAR-2022 03:37, ^ BORDERLINE CRITERIA FOR INFERIOR INFARCT ARE NO LONGER PRESENT ^ NONSPECIFIC T WAVE CHANGE HAS REPLACED INVERTED T WAVES IN INFERIOR LEADS ^ Confirmed by MD ANTONIO, HARMAN ([id number]) on 03/19/2022 12:37:36 AM us Grace Payan DO ECG ORDERABLES Final Result MUSE * #2 Blood culture-Peripheral site 2 (03/18/2022 12:16 AM EDT) Culture Result No Growth After 5 Days [facility] Blood BLOOD SPECIMEN / Unknown 03/18/2022 12:16 AM EDT 03/18/2022 1:00 AM EDT Narrative [facility]ALTH [facility] - 03/23/2022 1:02 AM EDT Suboptimal volume of blood received. Interpret results with caution. us Neyda Espinoza MD MICROBIOLOGY - GENERAL ORDERAB LES Final Result [facility] [address] * (ABNORMAL) POC Glucose Monitoring Device (03/17/2022 11:40 PM EDT) POC Glucose Monitoring Device 207(H) 70 - 100 mg/dL 03/17/2022 11:41 PM EDT [facility] Blood 03/17/2022 11:4 0 PM EDT 03/17/2022 11:41 PM EDT Kelsey Carcamo MD POINT OF CARE TEST ORDERA BLES Final Result Performing Organization Address [facility] Co de Phone Number [facility] [address] [place] [address] * (ABNORMAL) Hepatitis B Surface Antibody, Quantitati (03/17/2022 9:23 PM EDT) HBSAB NUMBER >500.00(H ) 0.00 - 7.99 mIU/mL 03/17/2022 10:44 PM EDT [facility] Hep B S Ab Reactive( A) Nonreactive 03/17/2022 10:44 PM EDT [facility] Serum 03/17/2022 9:23 PM EDT 03/17/2022 9:40 PM EDT Narrative [facility] - 03/17/2022 10:44 PM EDT Individual is considered immune to HBV infection. us Fortino Palomino DO LAB BLOOD ORDERABLES Fi nal Result Performing Organization Address [facility] Co de Phone Number [facility] [address] [place] [address] * (ABNORMAL) Hepatitis B Core Antibody (03/17/2022 9:23 PM EDT) Hep B Core Total Ab Reactive( A) Nonreactive 03/17/2022 11:39 PM EDT [facility] Comment: Health Department notified in accordance with reportable infectious disease guidelines. Health Department notified in accordance with reportable infectious disease guidelines. Serum 03/17/2022 9:23 PM EDT 03/17/2022 9:40 PM EDT Narrative [facility] - 03/17/2022 11:39 PM EDT A reactive final interpretation indicates presumptive evidence of HBV; anti-HBc antibodies were detected in the sample which suggests either on-going or previous HBV infection. us Fortino Reinaldogale Mahajana DO LAB BLOOD ORDERABLES Fi nal Result Performing Organization Address City/[facility]/ZIP Co de Phone Number [facility] [address] * Hepatitis A IgM (03/17/2022 9:23 PM EDT) Hep A IgM Nonreactive Nonreactive 03/17/2022 10:30 PM EDT [facility] Serum 03/17/2022 9:23 PM EDT 03/17/2022 9:40 PM EDT [facility] - 03/17/2022 10:30 PM EDT IgM anti-HAV not detected. Does not exclude the possibility of exposure to or infection with HAV. ??Levels of IgM anti-HAV may be below the cut-off in early infection. Fortinomirta Palomino DO LAB BLOOD ORDERABLES Fi nal Result Performing Organization Address [facility] Co de Phone Number [facility] [address] [place] [address] * Hepatitis C Antibody (03/17/2022 9:23 PM EDT) HCV Ab Nonreactive Nonreactive 03/17/2022 10:40 PM EDT [facility] Comment:Health Department no tified in accordance with reportable infectious disease guidelines. Serum 03/17/2022 9:23 PM EDT 03/17/2022 9:40 PM EDT [facility] - 03/17/2022 10:40 PM EDT Antibodies to HCV not detected; does not exclude the possibility of exposure to HCV. Fortino Reinaldogale Mahajana DO LAB BLOOD ORDERABLES Fi nal Result Performing Organization Address [facility] [place] Co de Phone Number [facility] [address] * Hepatitis B surface antigen (03/17/2022 9:23 PM EDT) Hep B Surface Ag Nonreactive Nonreactive 03/17/2022 10:35 PM EDT [facility] Comment:Health Department no tified in accordance with reportable infectious disease guidelines. Serum 03/17/2022 9:23 PM EDT 03/17/2022 9:40 PM EDT Narrative [facility] - 03/17/2022 10:35 PM EDT Specimen is considered negative for HBsAg. Fortinomirta Cardozalla DO LAB BLOOD ORDERABLES Fi nal Result [facility] [address] * #1 Blood culture-Peripheral site 1 (03/17/2022 9:23 PM EDT) Culture Result No Growth After 5 Days [facility] Blood BLOOD SPECIMEN / Unknown 03/17/2022 9:23 PM EDT 03/17/2022 9:47 PM EDT Narrative [facility] - 03/22/2022 9:50 PM EDT Suboptimal volume of blood received. Interpret results with caution. Neyda Espinoza MD MICROBIOLOGY - GENERAL ORDERAB LES Final Result Performing Organization Address City/[facility]/ZIP Co de Phone Number [facility] [address] [place] [address] * (ABNORMAL) Cyclosporine level (03/17/2022 9:23 PM EDT) Cyclosporine, LC/MS 67.3(L) 100.0 - 350.0 ng/mL 03/18/2022 3:25 PM EDT [facility] Comment:Performed via liquid chromatography tandem mass spectrometry. Detection limit: 20 ng/mL. Individual target concentrations may vary due to target organ and time after transplant. This test has been developed and its performance characteristics determined by [facility] which is certified under the Clinical [...] PM EDT 03/17/2022 9:27 PM EDT Narrative [facility] - 03/18/2022 3:25 PM EDT Please obtain trough level prior to evening dose us Nadya Ramirez MD LAB BLOOD ORDERABLES Final Resul t Performing Organization Address City/[facility]/ZIP Co de Phone Number [facility] [address] * (ABNORMAL) POC Glucose Monitoring Device (03/17/2022 6:03 PM EDT) POC Glucose Monitoring Device 127(H) 70 - 100 mg/dL 03/17/2022 6:04 PM EDT [facility] Blood 03/17/2022 6:03 PM EDT 03/17/2022 6:04 PM EDT us Kelsey Carcamo MD POINT OF CARE TEST ORDERA BLES Final Result Performing Organization Address [facility] Co de Phone Number [facility] [address] * Echo 2D Complete (TTE) (03/17/2022 1:55 PM EDT) 03/17/2022 1:17 PM EDT Narrative [facility] - 03/17/2022 3:00 PM EDT ?* [facility]* ?[address] ? [place] [address] ? [phone] Transthoracic Echocardiography Patient: ?Leoncio Rollins MR #: ? [id number] Account: Study Date: 03/17/2022 Gender: ? M Age: ?47 : ?1975 Room: ? [facility] FELLOW ? Dontae Hawkins MD PERFORMING ?? Vinod Stokes MD READING ?Dontae Hawkins MD RETAIL PHARMACY TECHNICIAN ??Ashish Singletonsamia ORDERING ? Mandi Mora REFERRING ?Mandi Mora [...] ms ? LVOT ? Value ?06/01/2020 Ref Diam, S ?2.3 ?? cm ? Area ? [...] ?Reviewed and confirmed by Vinod Stokes MD [id number] Procedure Note Vinod Stokes MD - 03/17/2022 * [facility]* [address] [id number] Transthoracic Echocardiography Patient: Leoncio Rollins MR #: [id number] Account: Study Date: 03/17/2022 Gender: M Age: 47 : 1975 Room: [facility] FELLOW MD DENNY Reid MD, MD RETAIL PHARMACY TECHNICIAN Ashish Sheldon ORDERING Mandi Mora REFERRING Mandi Mora ATTENDING Kelsey Carcamo ADMITTING Carlos Alberto Kelsey Donnellyan Procedure:ECHO 2D COMPLETE (TTE) Order: Indications: Heart [...] ml 61 EF (L) 42 % 52 72 SV 113 ml EDV/bsa (N) 61 ml/m^2 74 ESV/bsa (H) 35 ml/m^2 31 SV/bsa 43 ml/m^2 SV, 1-p A2C [...] Reviewed and confirmed by Vinod Stokes MD [id number] Mandi Mora MD CV ECHO ORDERABLES Final Resul t [facility] * (ABNORMAL) POC Glucose Monitoring Device (03/17/2022 1:00 PM EDT) [facility] POC Glucose Monitoring Device 103(H) 70 - 100 mg/dL 03/17/2022 1:01 PM EDT [facility] Blood 03/17/2022 1:00 PM EDT 03/17/2022 1:01 PM EDT us Kelsey Carcamo MD POINT OF CARE TEST ORDERA BLES Final Result [facility] [address] * (ABNORMAL) CBC (03/17/2022 9:57 AM EDT) WBC 2.7(L) 3.8 - 10.8 10E3/uL 03/17/2022 10:43 AM EDT [facility] RBC 2.59(L) 4.20 - 5.80 10E6/uL 03/17/2022 10:43 AM EDT [facility] Hemoglobin 8.7(L) 13.2 - 17.1 g/dL 03/17/2022 10:43 AM EDT [facility] Hematocrit 26.5(L) 38.5 - 50.0 % 03/17/2022 10:43 AM EDT [facility] MCV 102.5(H) 80.0 - 100.0 fL 03/17/2022 10:43 AM EDT [facility] MCH 33.6(H) 27.0 - 33.0 pg 03/17/2022 10:43 AM EDT [facility] MCHC 32.8 32.0 - 36.0 g/dL 03/17/2022 10:43 AM EDT [facility] RDW 14.5 11.0 - 15.0 % 03/17/2022 10:43 AM EDT [facility] Platelets 149 140 - 400 10E3/uL 03/17/2022 10:43 AM EDT [facility] MPV 7.4(L) 7.5 - 11.5 fL 03/17/2022 10:43 AM EDT [facility] Whole Blood 03/17/2022 9:57 AM EDT 03/17/2022 10:34 AM EDT us Nadya Ramirez MD LAB BLOOD ORDERABLES Final Resul t Performing Organization Address City/State/[facility] Co de Phone Number [facility] [address] [place] [address] * US Duplex Gun-Ahe-Mchlaky Comp (03/17/2022 8:09 AM EDT) Anatomical Region [...] EXAM: US ABDOMEN COMPLETE EXAM: US DUPLEX [id number] COMPLETE INDICATION: ??Elevated LFTs. Remote liver transplant. [...] EXAM: US ABDOMEN COMPLETE EXAM: US DUPLEX [id number] COMPLETE INDICATION: Elevated LFTs. Remote liver transplant. [...] 10:32 AM EDT us Grace Payan DO IM US ORDERABLES Final Resul t * US [...] EXAM: US ABDOMEN COMPLETE EXAM: US DUPLEX [id number] COMPLETE INDICATION: ??Elevated LFTs. Remote liver transplant. [...] EXAM: US ABDOMEN COMPLETE EXAM: US DUPLEX [id number] COMPLETE INDICATION: Elevated LFTs. Remote liver transplant. [...] 03/17/2022 10:32 AM EDT Grace Payan DO IMG US ORDERABLES Final Resul t * X-ray [...] and soft tissues: Unchanged. Procedure Note Adam oMrelos MD - 03/17/2022 EXAM: XR PORTABLE CHEST [...] MD at 03/17/2022 7:49 AM EDT Grace Payan DO IMG DIAGNOSTIC IMAGING ORDERA BLES Final Result * (ABNORMAL) POC Glucose Monitoring Device (03/17/2022 5:53 AM EDT) POC Glucose Monitoring Device 110(H) 70 - 100 mg/dL 03/17/2022 5:54 AM EDT [facility] Blood 03/17/2022 5:53 AM EDT 03/17/2022 5:54 AM EDT Kelsey Carcamo MD POINT OF CARE TEST ORDERA BLES Final Result Performing Organization Address City/State/[facility] Co de Phone Number [facility] [address] * (ABNORMAL) Hemoglobin A1c (03/17/2022 4:49 AM EDT) Hemoglobin A1C 5.8(H) 4.0 - 5.6 % [...] 4:49 AM EDT 03/17/2022 5:24 AM EDT Grace Payan DO LAB BLOOD ORDERABLES Final Re sult Performing Organization Address City/State/[facility] Co de Phone Number [facility] [address] * 2019 Novel Coronavirus (CoVID-19), FRANKLYN-B (03/17/2022 3:40 AM EDT) SARS-CoV-2 Not Detected Not Detected 03/17/2022 9:55 AM EDT [facility] Comment: This test is an amplified [...] ??Test results have been sent to the [facility] in accordance with state requirements. ?? For a fact sheet for healthcare providers, see https://www.fda.gov/media/360496/download. ??For a fact sheet for patients, see https://www.fda.gov/media/958741/download. Test LOINC ordered 56356-0 03/17/2022 9:55 AM EDT [facility] Device identifier [employer] (DIANA)_ ho [id number] 03/17/2022 9:55 AM EDT [facility] First Test No 03/17/2022 9:55 AM EDT [facility] Healthcare employee No 03/17/2022 9:55 AM EDT [facility] Symptomatic No 03/17/2022 9:55 AM EDT [facility] Hospitalized Yes 03/17/2022 9:55 AM EDT [facility] In ICU No 03/17/2022 9:55 AM EDT [facility] Congregate Care Resident No 03/17/2022 9:55 AM EDT [facility] No 03/17/2022 9:55 AM EDT [facility] Nasopharyngeal Swab NASOPHARYNGEAL STRUCTURE / Unknown [...] FLUIDS AND STOOLS ORDERA BLES Final Result [facility] [address] * ECG 12 lead (MUSE) (03/17/2022 3:37 AM EDT) 03/17/2022 3:37 AM EDT Narrative MUSE - 03/17/2022 5:47 PM EDT Ventricular Rate: ??81 ??BPM Atrial Rate: ??81 ??BPM P-R Interval: ??206 ??ms QRS Duration: ??116 ??ms QT: ??436 ??ms QTc: ??506 ??ms R [place]: ??143 ??degrees T [place]: ??-31 ??degrees Diagnosis Line: ??NORMAL SINUS RHYTHM [...] LATERAL LEADS ^ Confirmed by MD MIGUEL, [facility] ([id number]) on 03/17/2022 5:46:58 PM us Grace Payan DO ECG ORDERABLES Final Result MUSE * (ABNORMAL) Protime-INR (03/16/2022 11:34 PM EDT) Protime 15.7(H) 12.1 - 15.1 seconds 03/17/2022 [...] DO LAB BLOOD ORDERABLES Final Re sult [facility] [address] * (ABNORMAL) Hepatic Function Panel (03/16/2022 11:34 PM EDT) Total Bilirubin 0.6 0.0 - 1.5 mg/dL 03/17/2022 12:22 AM EDT [facility] Bilirubin, Direct 0.23 0.00 - 0.40 mg/dL 03/17/2022 12:22 AM EDT [facility] AST 12(L) 13 - 39 U/L 03/17/2022 12:22 AM EDT [facility] ALT 8 7 - 52 U/L 03/17/2022 12:22 AM EDT [facility] Alkaline Phosphatase 74 36 - 125 U/L 03/17/2022 12:22 AM EDT [facility] Total Protein 6.9 6.4 - 8.9 g/dL 03/17/2022 12:22 AM EDT [facility] Albumin 4.4 3.5 - 5.7 g/dL 03/17/2022 12:22 AM EDT [facility] Bilirubin, Indirect 0.37 0.00 - 1.10 mg/dL 03/17/2022 12:22 AM EDT [facility] Plasma 03/16/2022 11:3 4 PM EDT 03/16/2022 11:52 PM EDT [employer] DO LAB BLOOD ORDERABLES Final Re sult [facility] [address] * Magnesium (03/16/2022 11:34 PM EDT) Magnesium 1.8 1.5 - 2.5 mg/dL 03/17/2022 12:22 AM EDT [facility] Plasma 03/16/2022 11:3 4 PM EDT 03/16/2022 11:52 PM EDT [employer] DO LAB BLOOD ORDERABLES Final Re sult Performing Organization Address [facility]/ZIP Co de Phone Number [facility] [address] * (ABNORMAL) Renal Function Panel w/EGFR (03/16/2022 11:34 PM EDT) Sodium 140 133 - 146 mmol/L 03/17/2022 12:22 AM EDT [facility] Potassium 4.1 3.5 - 5.3 mmol/L 03/17/2022 12:22 AM EDT [facility] Chloride 97(L) 98 - 110 mmol/L 03/17/2022 12:22 AM EDT [facility] CO2 29 21 - 33 mmol/L 03/17/2022 12:22 AM EDT [facility] Anion Gap 14 3 - 16 mmol/L 03/17/2022 12:22 AM EDT [facility] BUN 48(H) 7 - 25 mg/dL 03/17/2022 12:22 AM EDT [facility] Creatinine 7.83(H) 0.60 - 1.30 mg/dL 03/17/2022 12:22 AM EDT [facility] Glucose 111(H) 70 - 100 mg/dL 03/17/2022 12:22 AM EDT [facility] Calcium 9.1 8.6 - 10.3 mg/dL 03/17/2022 12:22 AM EDT [facility] Phosphorus 4.9(H) 2.1 - 4.7 mg/dL 03/17/2022 12:22 AM EDT [facility] Albumin 4.4 3.5 - 5.7 g/dL 03/17/2022 12:22 AM EDT [facility] Osmolality, Calculated 303 278 - 305 mOsm/kg 03/17/2022 12:22 AM EDT [facility] EGFR 8 03/17/2022 12:22 AM EDT [facility] Comment:As of 2021, the [...] DO LAB BLOOD ORDERABLES Final Re sult [facility] [address] * (ABNORMAL) CBC (03/16/2022 11:34 PM EDT) WBC 3.5(L) 3.8 - 10.8 10E3/uL 03/16/2022 11:59 PM EDT [facility] RBC 2.55(L) 4.20 - 5.80 10E6/uL 03/16/2022 11:59 PM EDT [facility] Hemoglobin 8.6(L) 13.2 - 17.1 g/dL 03/16/2022 11:59 PM EDT [facility] Hematocrit 26.2(L) 38.5 - 50.0 % 03/16/2022 11:59 PM EDT [facility] MCV 102.4(H) 80.0 - 100.0 fL 03/16/2022 11:59 PM EDT [facility] MCH 33.9(H) 27.0 - 33.0 pg 03/16/2022 11:59 PM EDT [facility] MCHC 33.0 32.0 - 36.0 g/dL 03/16/2022 11:59 PM EDT [facility] RDW 14.4 11.0 - 15.0 % 03/16/2022 11:59 PM EDT [facility] Platelets 172 140 - 400 10E3/uL 03/16/2022 11:59 PM EDT [facility] MPV 7.2(L) 7.5 - 11.5 fL 03/16/2022 11:59 PM EDT [facility] Whole Blood 03/16/2022 11:3 4 PM EDT 03/16/2022 11:51 PM EDT us Grace Payan DO LAB BLOOD ORDERABLES Final Re sult [facility] [address] * EKG - SCAN (03/16/2022) us Scanning [facility] SCAN DOCS - NO RESULTS Final Res ult documented in this encounter Visit Diagnoses Diagnosis Hematochezia- Primary Blood in stool Hematochezia Blood in stool Right heart enlargement Cardiomegaly ESRD (end stage renal disease) on dialysis ([facility] End stage renal disease Anemia, unspecified type Acute on chronic heart failure with preserved ejection fraction ([facility]) Acute hemodialysis encounter ([facility]) Encounter for extracorporeal dialysis 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, unspecified whether intermission coordinator insulin use ([facility]) Hypertensive heart disease with congestive heart failure, unspecified heart failure type ([facility]) LVH (left ventricular hypertrophy) Cardiomegaly Pre-transplant evaluation for kidney transplant Class 3 severe obesity with serious comorbidity and body mass index (BMI) of 40.0 to 44.9 in adult, unspecified obesity type ([facility]) Anemia, unspecified type documented in this encounter Admitting Diagnoses Diagnosis [...] Given 03/22/2022 4:27 AM EDT 650 mg carBAMazepine (TEGRETOL) tablet 200 mg 200 [...] OR CHEW Given 03/25/2022 11:24 AM EDT 30 mg cycloSPORINE modified (NEORAL/GENGRAF) capsule 100 mg [...] Given 03/23/2022 11:16 AM EDT 160 mg folic acid (FOLVITE) tablet 1 mg [...] Given 03/25/2022 11:24 AM EDT 100 mg glucose chewable tablet 12 g 12 [...] Given 03/24/2022 5:44 PM EDT 100 mg insulin lispro (humaLOG) injection 0-5 Units [...] PM EDT 1 Units Ri ght Arm isosorbide mononitrate (IMDUR) 24 hr tablet 90 mg 90 mg, Oral, Daily, First dose on Mon03/24/22 at 0930, DO NOT CRUSH Given 03/25/2022 11:24 AM EDT 90 mg Given 03/24/2022 12:18 PM EDT 90 mg lisinopriL (PRINIVIL) tablet 40 mg 40 [...] before meals & nightly, First dose on [facility] 03/17/22 at 0030 Given 03/25/2022 11:24 AM EDT 5 00 mg Given 03/24/2022 9:59 PM EDT 500 mg Given 03/24/2022 5:45 PM EDT 500 mg montelukast (SINGULAIR) tablet 10 mg 10 mg, Oral, Daily, First dose on [facility] 03/17/22 at 0900 Given 03/25/2022 11:25 AM EDT 10 mg Given 03/24/2022 12:18 PM EDT 10 mg Given 03/23/2022 11:16 AM EDT 10 mg mycophenolate (CELLCEPT) capsule 250 mg 250 mg, Oral, 2 times daily, First dose on [facility] 03/17/22 at 0030, LEVEL 2 HAZARDOUS MEDICATION Given 03/25/2022 11:25 AM EDT 250 mg Given 03/24/2022 9:59 PM EDT 250 mg Given 03/24/2022 12:17 PM EDT 250 mg NIFEdipine (PROCARDIA-XL) 24 hr tablet 90 mg 90 mg, Oral, 2 times daily, First dose (after last modification) on [facility] 03/17/22 at 2100, DO NOT CRUSH Given 03/25/2022 11:24 AM EDT 90 mg Given 03/24/2022 9:59 PM EDT 90 mg Given 03/24/2022 12:17 PM EDT 90 mg oxyCODONE-acetaminophen (PERCOCET) 5-325 mg per tablet [...] Given 03/24/2022 12:18 PM EDT 40 mg peppermint oiL liquid 1 mL 1 mL, MISCELLANEOUS, As needed, Nausea and/or Vomiting, Starting on Mon03/17/22 at 0834 polyethylene glycol (MIRALAX) packet 238 g 238 [...] Shift, First dose on Mon03/17/22 at 0500 Given 03/25/2022 1:48 PM EDT 10 mLs Given 03/25/2022 4:44 AM EDT 10 mLs Given 03/24/2022 10:00 PM EDT 10 mLs terazosin (HYTRIN) capsule 10 mg 10 mg, Oral, At Bedtime (2100), First dose on Mon03/17/22 at 0030, Therapeutic Interchange: doxazosin (CARDURA) 8 [...] (after last modification) on Mon03/20/22 at 1100 1116 (Given - Provider: Earnest Plummer RN)2123 (Given - Provider: Yareli Dominguez, JANA) 1218 (Given - Provider: Rene Haas RN)2158 (Given - Provider: Yareli Dominguez, JANA) 1124 [...] RN) 1218 (Given - Provider: Rene Haas, JANA)1744 (Given - Provider: Rene Haas, RN) 1124 (Given - Provider: Noel Moralez, JANA) cinacalcet (SENSIPAR) tablet 30 mg 30 mg, Oral, Daily with breakfast, First dose (after last modification) on 03/25/22 at 0800, SWALLOW WHOLE; DO NOT CRUSH OR CHEW 1124 (Given - Provider: Noel Moralez, JANA) cinacalcet (SENSIPAR) tablet 60 mg (CANCELED) 60 mg, Oral, Daily with breakfast, First dose on Bobbi 03/17/22 at 0800, SWALLOW WHOLE; DO NOT CRUSH OR CHEW 1116 (Given - Provider: Earnest Plummer RN) 1217 (Given - Provider: Rene Haas, JANA) cycloSPORINE modified (NEORAL/GENGRAF) capsule 100 mg 100 mg, Oral, 2 times daily, First dose on Bobbi 03/17/22 at 0030, LEVEL 2 HAZARDOUS MEDICATION 1119 (Hold - Provider: Earnest Plummer RN - Reason: Transfer to a Procedural area)2124 (Given - Provider: Yareli Dominguez RN) 1218 (Given - Provider: Rene Haas RN)2159 (Given - Provider: Yareli Dominguez RN) 1123 (Given - Provider: Noel Moralez, JANA) entecavir [...] Plummer RN) 1217 (Given - Provider: Rene Haas RN) 1124 (Given - Provider: Noel Moralez RN) folic acid (FOLVITE) tablet 1 mg 1 mg, Oral, Daily, First dose on Mon03/17/22 at 0900 1116 (Given - Provider: Earnest Plummer RN) 1219 (Given - Provider: Rene Haas RN) 1125 (Given - Provider: Noel Moralez, JANA) gabapentin (NEURONTIN) capsule 100 mg 100 mg, Oral, 3 times daily, First dose (after last modification) on Mon03/25/22 at 0900 1124 (Given - Provider: Noel Moralez RN)1300 (Due) gabapentin (NEURONTIN) capsule 800 mg (CANCELED) 800 mg, Oral, 2 times daily, First dose on Mon03/17/22 at 0030 0031 (Given - Provider: Yareli Dominguez RN - Comment: patient request only 400 mg)1219 (Not Given - Provider: Earnest Plummer RN - Reason: Patient/family refused) 0002 (Given - Provider: Yareli Dominguez RN - Comment: patient request half dose)1217 (Given - Provider: Rene Haas, JANA) heparin (porcine) injection 5,000 Units 5,000 [...] Reason: Patient/family refused)1230 (Given - Provider: Rene Haas RN)2200 (Not Given - Provider: Yareli Dominguez RN [...] Yareli Dominguez RN)1230 (Given - Provider: Rene Haas, JANA)1744 (Given - Provider: Rene Haas, RN) 0051 (Given - Provider: Yodit Hernandez [...] at 1430 1120 (Hold - Provider: Earnest Plmumer RN - Reason: Transfer to a Procedural area) 1218 (Given - Provider: Rene Haas RN) 1124 (Given - Provider: Noel Moralez, JANA) magnesium oxide (MAG-OX) tablet 400 mg 400 mg, Oral, 2 times daily, First dose on Bobbi 03/24/22 at 1130, For 4 doses 1219 (Given - Provider: Rene Haas RN)2159 (Given - Provider: Yareli Dominguez RN) 112 (Given - Provider: Noel Moralez, JANA) methocarbamoL (ROBAXIN) tablet 500 mg 500 mg, Oral, 4 times daily before meals & nightly, First dose on Bobbi 03/17/22 at 0030 1103 (Not Given - Provider: Earnest Plummer RN - Reason: Transfer to a Procedural area)1116 (Given - Provider: Earnest Plummer RN)1730 (Given - Provider: Earnest Plummer RN)2124 (Given - Provider: Yareli Dominguez RN) 0631 (Given - Provider: Yareli Dominguez RN)1219 (Given - Provider: Rene Haas RN)1745 (Given - Provider: Rene Haas RN)215 (Given - Provider: Yareli Dominguez RN) 112 (Given - Provider: Noel Moralez RN)1137 (Not Given - Provider: Noel Moralez RN - Reason: Other - Comment: skipped first dose due to dialysis) montelukast (SINGULAIR) tablet 10 mg 10 mg, Oral, Daily, First dose on Mon03/17/22 at 0900 1116 (Given - Provider: Earnest Plummer RN) 1218 (Given - Provider: Rene Haas RN) 1125 (Given - Provider: Noel Moralez, JANA) mycophenolate (CELLCEPT) capsule 250 mg 250 mg, Oral, 2 times daily, First dose on Bobbi 03/17/22 at 0030, LEVEL 2 HAZARDOUS MEDICATION 1116 (Given - Provider: Earnest Plummer RN)2123 (Given - Provider: Yareli Dominguez RN) 1217 (Given - Provider: Rene Haas RN)215 (Given - Provider: Yareli Dominguez RN) 1125 (Given - Provider: Noel Moralez, JANA) NIFEdipine [...] on Mon03/23/22 at 2100, Do Not Crush 2124 (Given - Provider: Yareli Dominguez RN) 121 [...] Yodit Hernandez RN)1348 (Given - Provider: Noel Moralez RN) terazosin (HYTRIN) capsule 10 mg 10 mg, [...] blood sugar, see admin instructions, Starting on Bobbi 03/17/22 at 0139, TAKING PO: Patient has blood [...] Post-Procedure(Invasive Cardiology) 0011 (Given - Provider: Yareli Dominguez, RN)1224 (Given - Provider: Rene Haas, RN)1620 (Given - Provider: Rene Haas, RN)2206 (Given - Provider: Yareli Dominguez, JANA) [...] as of this encounter Care Teams Graphic User Interface Designer Relationship Specialty Start Date End Date Edgar Fournier MD [address] [place] [address] [place] [address] PCP - General 12/22/21 Maile Valles, RN Txp Post Coordinator Transplant Hepatology 11/07/17 Jack Ordoñez MD [address] [place] [phone] Consulting Physician Transplant Hepatology 01/05/18 Estephania Sharif, DarrianD Pharmacist Pharmacist 11/11/19 documented as of this encounter
--- OUTSIDE RECORDS SUMMARY | 2024-07-12 12:32 | XMS_ITS | Encounter Summary ---
Author Organization [facility] Address [address] [place] [address] Care Team Providers Care Mission Planner Name Role Phone Maile Valles RN Unavailable Unavail able Jack Ordoñez MD Unavailable [phone] Estephania Sharif PharmD Unavailable Christine Edgar Tolentino MD Primary Care Provider [phone] Source Comments This information has been disclosed [...] release of HIV test results or diagnoses. [id number] Reason for Visit * Auth/Cert Specialty Diagnoses / Procedures Referred By Contac t Referred To Contact Transplant Diagnoses Abdominal pain Abd pain 789.00 (ICD-9-CM) - R10.9 (ICD-10-CM) - Abdominal pain Procedures IP ADMIT [facility] [address] [place] [address] Phone: tel: Referral ID Status Reason Start Date Expiration Date Visits Re quested Visits Authorized [id number] 1 1 Encounter Details Date Type Department Care Team (Late st Contact Info) Description 03/23/2022 8:57 AM EDT Anesthesia Event [facility] ENDOSCOPY [address] [place] [phone] Reginaldo Toledo MD [address] [facility] [place] [address] Earnest Bullard MD [facility] [place] [phone] Anesthesia Record Procedure Summary Procedure Name Responsible Anesthesiologist Anesthesia Start Time Anesthesia Stop Time EGD WITH BIOPSY Reginaldo Toledo MD 03/23/22 0857 03/23 0944 Events Date Time Event Comment 03/23/2022 0857 An Start 0857 An Start Data 0902 Time Out 0903 An Induction 0913 Quick Note NC exchanged fo r non-rebreather 0935 An Emergence 0935 Remove Airway Device 0935 an stop data 0944 An Stop Meds Name Total lidocaine (XYLOCAINE) 20 mg/mL (2%) inje ction 50 mg propofol (DIPRIVAN) 10 mg/ml IV injectio n (BOLUS) 50 mg propofol (DIPRIVAN) 10 mg/ml infusion - 100mL VIAL SIZE 254.19 mg 0.9% NaCl infusion 50 mL * Agents Name Auxiliary O2 O2 * Blood No blood administrations on file. Lines, Drains, and Airways Type Details Placement Removal Peripheral IV 03/16/22; 1000; 20 G; Anterior, Proximal, Right; Forearm 03/16/22 1000 by Sheron Diamond RN 03/23/22 2100 by Yareli Dominguez RN Anesthesia Airway Device 03/23/22; 0812; Nasal Cannula Salter; 03/23/22; 0935 03/23/22 0812 by Ahsan Dale CRNA 03/23/22 0935 by Ahsan Dale CRNA documented in this encounter Social History [...] as of this encounter Progress Notes * Reginaldo Toledo MD - 03/25/2022 1:13 AM EDT Anesthesia Post Note Patient: Aiden Oviedo Eh Marques Procedure(s) Performed: Procedure(s): EGD WITH BIOPSY COLONOSCOPY WITH BIOPSY Anesthesia type: MAC Patient location: Endoscopy PACU Airway: Patent Post pain: Adequate analgesia Nausea / Vomiting: Absent Post-operative Hydration Status: Adequate Post assessment: no apparent anesthetic complications, tolerated procedure well and no evidence of recall Last Vitals: Vitals: 03/24/22 1500 03/24/22 2003 03/24/22205703/25/22 0006 BP: 133/58 130/66 134/68 BP Location: Right arm Right arm Right arm Patient Position: Lying Lying Lying Pulse: 79 81 83 80 Resp: 16 20 21 20 Temp: 98.4 ??F (36.9 ??C) 98.6 ??F (37 ??C) 98.3 ??F (36.8 ??C) TempSrc: Oral Oral Oral SpO2: 95% 96% 99% 93% Weight: Height: Post vital signs: stable Level of consciousness: awake, alert and oriented Complications: No complications documented. documented in this encounter H&P Notes * Reginaldo Toledo MD - 03/23/2022 12:11 AM EDT [facility] DEPARTMENT OF ANESTHESIOLOGY PRE-PROCEDURAL EVALUATION Aiden Stauffer Jr. is a 47 y.o. year old male presenting for: * No procedures listed * Surgeon: * No surgeons listed * Chief Complaint Abd pain Review of Systems Anesthesia Evaluation Previous anesthesia note reviewed. No history of anesthetic complications I have reviewed the History and Physical Exam, any relevant changes are noted in the anesthesia pre-operative evaluation. Cardiovascular: Exercise tolerance: poor (Can no longer walk 1 flight of stairs) Pérez Met score: 3 - Walking on a flat surface for one or two blocks.Pulmonary hypertension is moderate. Hypertension (BP 140/80 to 180+/110+) is poorly controlled. (-) past WI, CAD. ROS comment: TTE today: - Left ventricle: The cavity size is [...] is a mobile echodensity on the posterior aspectof the mitral annulus which represents a small mobile calcification versus vegetation. - Right ventricle: The cavity size is severely dilated. Wall thickness is normal. Systolic functionwas moderately reduced by visual assessment. Tricuspid annular systolic velocity: 8cm/s. - Pulmonary arteries: The peak pressure during systole by Doppler is 61mm Hg. - Inferior vena cava: The vessel was dilated. The respirophasic diameter changes were blunted (<50%), consistent with elevated central venous pressure. Impressions: ??Compared to prior there is likely a mild interval decrease in the LV ejection fraction. The RV is better visualized on the current study and is dilated with moderately depressed function. [facility] 05/2018: CORONARY ARTERIES: 1. The coronary circulation is right dominant. 2. The left main bifurcates normally into the LAD and circumflex. Left main: ??Normal. LAD: ??Normal. Left circumflex: ??Normal. Medium-sized. Right coronary: ??Normal. Large. RHC: 50/15, wedge: 18 RHC 05/2021: Conclusion: 1. Elevated left and right sided intracardiac filling pressures 2. Normal cardiac output and index as estimated by the Abelino equation 3. WHO group II pulmonary hypertension without evidence of pre-capillary pulmonary hypertension (normal PVR) Neuro/Muscoloskeletal/Psych: (+) back problem (Doing well s/p back surgery). (-) seizures, CVA. Pulmonary: (+) shortness of breath. Sleep apnea on CPAP. 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 GERD is well controlled. Chronic renal disease (On dialysis x2.5 years), ESRD, hemodialysis. Comments: EGD 07/2020: - LA Grade A reflux esophagitis. Significant improvement in abnormal findings from his prior endoscopy. - Gastritis. Biopsied. - Duodenitis. Multiple previous EGD's Endo/Other: (+) anemia (Blood loss anemia, anemia of chronic disease). Diabetes (HgbA1c: 5.8% this admission), well controlled, type 2. (-) no thrombocytopenia, [...] ??? ABDOMINAL SURGERY ??? BACK SURGERY 04/2020 [facility] ??? CREATION AV FISTULA ??? ESOPHAGOGASTRODUODENOSCOPY [...] Meds: Prior to Admission medications as of 03/16/22 5733 Medication Sig Taking? ALPRAZolam (XANAX) 0.5 MG tablet Take 0.5 mg by mouth if needed for Sleep. Yes aspirin 81 MG chewable tablet Chew 1 tablet (81 mg total) by mouth daily with breakfast. Yes blood sugar diagnostic Str Use to test blood sugar up to 4 times a day. Diagnosis for use: E 9.65.For use with One Touch Verio meters. Yes blood-glucose meter (ONETOUCH VERIO SYSTEM) [facility] Use as instructed. Yes calcium acetate,phosphat bind, (PHOSLO) 667 mg capsule Take 667 mg by mouth 3 times a day with meals. Yes carBAMazepine (TEGRETOL) 200 mg tablet Take 200 mg by mouth 2 times a day. Yes cinacalcet (SENSIPAR) 60 MG tablet Take 60 mg by mouth daily with breakfast. Yes cycloSPORINE modified (CYCLOSPORINE MODIFIED) 25 MG capsule Take 4 capsules (100 mg total) by mouth2 times a day. Yes doxazosin (CARDURA) 8 MG tablet Take 8 mg by mouth at bedtime. Yes entecavir (BARACLUDE) 0.5 MG tablet Take 1 tablet (0.5 mg total) by mouth every 7 days. Yes ergocalciferol (ERGOCALCIFEROL) 1,250 mcg (50,000 unit) capsule Take 50,000 Units by mouth every Monday, , and Monday. Yes fenofibrate micronized (LOFIBRA) 134 MG capsule Take 134 mg by mouth every morning before breakfast. Yes ferrous sulfate 325 (65 FE) MG tablet Take 1 tablet (325 mg total) by mouth daily with breakfast. Yes folic acid (FOLVITE) 1 MG tablet Take 1 tablet (1 mg total) by mouth daily. Yes hydrALAZINE (APRESOLINE) 100 MG tablet Take 1 tablet (100 mg total) by mouth every 8 hours. Yes insulin aspart U-100 (NOVOLOG) 100 unit/mL injection Administers per sliding scale 3 times daily with meals Yes lancets (ONETOUCH DELICA LANCETS) 33 gauge [facility] Use 1 strip as directed 4 times daily before meals and at bedtime. Yes lisinopriL (PRINIVIL) 40 MG tablet Take 1 tablet by mouth daily. Yes methocarbamoL (ROBAXIN) 500 MG tablet Take 500 mg by mouth 4 times daily before meals and at bedtime. Yes metoprolol succinate (TOPROL-XL) 100 MG 24 hr tablet Take 100 mg by mouth at bedtime. Yes montelukast (SINGULAIR) 10 mg tablet Take 10 mg by mouth daily. Yes mycophenolate (CELLCEPT) 250 mg capsule Take 1 capsule (250 mg total) by mouth 2 times a day. Yes NIFEdipine (PROCARDIA-XL) 90 MG (OSM) 24 hr tablet Take 90 mg by mouth 2 times a day. Yes omega-3 fatty acids-fish oil 300-1,000 mg capsule Take 2 capsules by mouth 2 times a day with meals. Yes ondansetron (ZOFRAN-ODT) 4 MG disintegrating tablet Take 4 mg by mouth every 8 hours as needed. Yes pantoprazole (PROTONIX) 40 MG tablet Take 1 tablet (40 mg total) by mouth daily. Patient taking differently: Take 40 mg by mouth in the morning and at bedtime. Yes pen needle, diabetic 32 gauge x Ndle Use as directed to inject insulin 4 times daily. Yes polyethylene glycol (MIRALAX) 17 gram packet Take 17 g by mouth daily as needed (mild constipation (no BM for 24 hrs)). Yes sevelamer carbonate (RENVELA) 800 mg tablet Take 1,600 mg by mouth 3 times a day with meals. Yes testosterone cypionate (DEPOTESTOTERONE CYPIONATE) 200 mg/mL injection Inject into the muscle. Yes VASCEPA 1 gram Cap TAKE 2 Capsule by mouth twice daily Yes cholecalciferol, vitamin D3, 1,250 mcg (50,000 unit) capsule take 1 Capsule by mouth 3 times weekly gabapentin (NEURONTIN) 800 MG tablet Take 800 mg by mouth 2 times a day. hydrOXYzine HCL (ATARAX) 25 MG tablet lidocaine (LIDODERM) 5 % APPLY 1 Film on skin daily proMETHazine (PHENERGAN) 12.5 MG tablet Take by mouth. Inpatient Meds: Scheduled: ??? calcium acetate(phosphat bind) 667 mg [...] Oral BID ??? NIFEdipine 90 mg Oral Daily 0900 ??? pantoprazole (PROTONIX) IV 40 mg Intravenous BID6 ??? sevelamer carbonate 1,600 mg Oral TID WC ??? sodium chloride 10 mL Intravenous QS ??? terazosin 10 mg Oral Nightly (2100) Continuous: PRN: acetaminophen, carBAMazepine, dextrose 10% in water OR dextrose 10% in water, glucose, peppermint oiL Vital Signs Wt Readings from Last 3 Encounters: 12/22/21 (!) 299 lb 1.6 oz (135.7 kg) 09/21/21 (!) 274 lb (124.3 kg) 08/26/21 (!) 263 lb 7.2 oz (119.5 kg) Ht Readings from Last 3 Encounters: 12/22/21 5' 9 (1.753 m) 09/21/21 5' 9 (1.753 m) 08/26/21 5' 9 (1.753 m) Temp Readings from Last 3 Encounters: 03/17/22 98.2 ??F (36.8 ??C) (Oral) 11/01/21 97.4 ??F (36.3 ??C) (Oral) 09/21/21 98.5 ??F (36.9 ??C) (Oral) BP Readings from Last 3 Encounters: 03/17/22 141/80 12/22/21 114/64 11/01/21 112/62 Pulse Readings from Last 3 Encounters: 03/17/22 76 12/22/21 60 11/01/21 74 @LASTSAO2(3)@ Physical Exam Airway: Mallampati: III [...] Data Lab Results Component Value Date WBC 2.7 (L) 03/17/2022 HGB 8.7 (L) 03/17/2022 HCT 26.5 (L) 03/17/2022 MCV 102.5 (H) 03/17/2022 PLT 149 03/17/2022 No results found for: ABORH Lab Results Component Value Date GLUCOSE 111 (H) 03/16/2022 BUN 48 (H) 03/16/2022 CO2 29 03/16/2022 CREATININE 7.83 (H) 03/16/2022 K 4.1 03/16/2022 NA 140 03/16/2022 CL 97 (L) 03/16/2022 CALCIUM 9.1 03/16/2022 ALBUMIN 4.4 03/16/2022 ALBUMIN 4.4 03/16/2022 PROT 6.9 03/16/2022 ALKPHOS 74 03/16/2022 ALT 8 03/16/2022 AST 12 (L) 03/16/2022 BILITOT 0.6 03/16/2022 Lab Results Component Value Date INR 1.2 (H) 03/16/2022 No results found for: PREGTESTUR, PREGSERUM, HCG, HCGQUANT Anesthesia Plan ASA 3 Current non-smoker Anesthesia Type: MAC. PONV Risk Factors: current non-smoker, plan for postoperative opioid use. (MAC anesthesia) Anesthetic plan and risks discussed with patient and spouse. Plan, alternatives, and risks of anesthesia, including , have been explained to and discussed with the patient/legal guardian. By my assessment, the patient/legal guardian understands and agrees. Scenario presented in detail. Questions answered. Blood products not discussed. Plan discussed with attending and EARTH MOVING TECHNICIAN. documented in this encounter Plan of Treatment Upcoming Encounters Date Type Department Care Team (Late st Contact Info) Description 07/15/2024 9:00 AM EST Hospital Encounter [facility] Interventional Radiology [address] [place] [address] [facility]erve [facility]illo [facility] [facility] [facility] [place] [address] documented as of this encounter Visit Diagnoses * Transfer of Care - hAsan Dale CRNA - 03/23/2022 9:44 AM EDT Anesthesia Transfer of Care Note Patient: Aiden Oviedo Eh Marques Procedure(s) Performed: Procedure(s): EGD WITH BIOPSY COLONOSCOPY WITH BIOPSY Patient location: Endoscopy PACU Anesthesia type: MAC Airway Device on Arrival to PACU/ICU: Nasal Cannula IV Access: Peripheral Monitors Recommended to be Used During PACU/ICU: Standard Monitors Outstanding Issues to Address: None Level of Consciousness: awake, alert and oriented Post vital signs: Vitals: 03/23/22 0943 BP: 116/68 Pulse: 72 Resp: 18 Temp: 97.8 SpO2: 96% Complications: No complications documented. Date 03/22/22699 - 03/23/2265803/23/22699 - 03/24/22 0659 Shift 2421-8104 2090-3327 0061-8447 24 Hour Total 7528-2047 6683-8613 7574-9003 24 Hour Total INTAKE P.O. 8981 752 6724 P.O. 8099 284 9857 I.V.(mL/kg) 20(0.1) 20(0.1) 40(0.3) 50(0.4) 50(0.4) Saline Flush (mL) 20 20 40 Volume (mL) (sodium chloride 0.9 % infusion) 50 50 Shift Total(mL/kg) 1180(8.5) 890(6.4) 20(0.1) 2090(15.2) 50(0.4) 50(0.4) OUTPUT Urine(mL/kg/hr) Urine Occurrence 1 x 1 x Other 4006 4006 Net fluid removal (ml) 4006 4006 Stool Stool Occurrence 1 x 3 x 4 x Shift Total(mL/kg) 4006(28.7) 4006(29.1) Weight (kg) 139.4 139.4 137.8 137.8 137.4 137.4 137.4 137.4 documented in this encounter Administered Medications Inactive Administered Medications - up to 3 most recent administrations Medication Order MAR Action Action Date Dose Rate Site lidocaine (PF) 20 mg/mL (2 %) Soln Intravenous, PRN - One Step Medication Only, Starting on Mon03/23/22 at 0903, Anesthesia Intra-op Given 03/23/2022 9:03 AM EDT 50 mg propofol (DIPRIVAN) infusion 10 mg/mL Intravenous, Continuous - One Step Medications Only, Starting on Mon03/23/22 at 0903, Anesthesia Intra-op Rate/Dose Change 03/23/2022 9:13 AM EDT 50 mcg/kg/min 41.22 mL/hr Rate/Dose Change 03/23/2022 9:07 AM EDT 75 mcg/kg/min 61.8 3 mL/hr New Bag 03/23/2022 9:03 AM EDT 100 mcg/kg/min 82.44 mL/ hr propofol 10 mg/ml (DIPRIVAN) injection Intravenous, PRN - One Step Medication Only, Starting on Mon03/23/22 at 0903, Anesthesia Intra-op Given 03/23/2022 9:03 AM EDT 50 mg sodium chloride 0.9 % infusion Intravenous, Continuous - One Step Medications Only, Starting on Mon03/23/22 at 0857, Anesthesia Intra-op New Bag 03/23/2022 8:57 AM EDT documented in this encounter Additional Health Concerns Assessment Noted Time PHQ-9 Depression Total Score: 0 12/06/19 18 3:00 PM EDT documented as of this encounter Care Teams Mission Planner Relationship Specialty Start Date End Date Edgar Fournier MD [address] [place], [place] [address] PCP - General 12/22/21 Maile Valles, RN Txp Post Coordinator Transplant Hepatology 11/07/17 Jack Ordoñez MD [address] [place] [phone] Consulting Physician Transplant Hepatology 01/05/18 Estephania Sharif, PharmD Pharmacist Pharmacist 11/11/19 documented as of this encounter
--- OUTSIDE RECORDS SUMMARY | 2024-07-12 12:33 | XMS_ITS | Encounter Summary ---
Author Organization [facility] Address [address] [place] [address] Care Team Providers Care Head Of Stock Name Role Phone Maile Valles RN Unavailable Unavail able Jack Ordoñez MD Unavailable [phone] Estephania Sharif PharmD Unavailable Christine vailable System, Provider Not In Primary Care Provider Un available Source Comments This information has been disclosed [...] release of HIV test results or diagnoses. [id number] Reason for Visit * Reason Comments Medication Refill Encounter Details Date Type Department Care Team (Late st Contact Info) Description 11/11/2021 Refill [facility] Liver Transplant at [facility] [address] [facility] [address] [place] [address] Jack Ordoñez MD [address] [place] [phone] Social History Tobacco Use Types Packs/Day Years Used Date Smoking Tobacco: Never Smokeless Tobacco: Never Alcohol Use Standard Drinks/Week Comments No 0 (1 standard drink = 0.6 oz pur e alcohol) PHQ-2 Answer Date Recorded PHQ-2 Total Score 0 03/16/2020 Sex and Gender Information Value Date Recorded Sex Assigned at Not on file Legal Sex Male 11:05 AM EDT Gender Identity Not on file Sexual Orientation Not on file COVID-19 Exposure Response Date Recorded In the last month, have you been in contact with someone who was confirmed or suspected to have Coronavirus / COVID-19? No / Unsure 10/31/2021 9:52 AM EDT documented as of this encounter Plan of Treatment Upcoming Encounters Date Type Department Care Team (Late st Contact Info) Description 07/15/2024 9:00 AM EST Hospital Encounter [facility] Interventional Radiology [address] [place] [phone] Herve Carrillo MD [address] [facility] [address] [place] [phone] documented as of this encounter Visit Diagnoses Not on filedocumented in this encounter Additional Health Concerns Assessment Noted Time PHQ-9 Depression Total Score: 0 12/06/19 18 3:00 PM EDT documented as of this encounter Care Teams Head Of Stock Relationship Specialty Start Date End Date System, Provider Not In PCP - General 06/24/21 12/21/21 Maile Valles, RN Txp Post Coordinator Transplant Hepatology 11/07/17 Jack Ordoñez MD [address] [place] [phone] Consulting Physician Transplant Hepatology 01/05/18 Estephania Sharif, DarrianD Pharmacist Pharmacist 11/11/19 documented as of this encounter
--- OUTSIDE RECORDS SUMMARY | 2024-07-12 12:33 | XMS_ITS | Encounter Summary ---
Author Organization [facility] Address [address] [place] [address] Care Team Providers Care Supervisor [employer] Name Role Phone Maile Valles RN Unavailable Unavail able Jack Ordoñez MD Unavailable [phone] Estephania Sharif PharmD Unavailable Christine Edgar Tolentino MD Primary Care Provider [phone] Source Comments This information has been disclosed [...] release of HIV test results or diagnoses. [id number] Reason for Visit * Auth/Cert Specialty Diagnoses / Procedures Referred By Contac t Referred To Contact Transplant Diagnoses Abdominal pain Abd pain 789.00 (ICD-9-CM) - R10.9 (ICD-10-CM) - Abdominal pain Procedures IP ADMIT [facility] [id number] [place] [address] Phone: tel: Referral ID Status Reason Start Date Expiration Date Visits Re quested Visits Authorized [id number] 1 1 Encounter Details Date Type Department Care Team (Late st Contact Info) Description 03/18/2022 2:10 PM EDT - 03/18/2022 2:59 PM EDT Surgery [facility] Cardiac Director Of Assessing [address] [place] [id number] Oliver Reed MD [address] [facility] Cardiology [place], [place] [address] RIGHT HEART CATH Surgery Details Date/Time Status Location OR Service Patient Class Case Class Case Type Trauma Case? 03/18/2022 2:10 PM Posted CARDIAC CATH LABS CATH 03 Cath Inpatient Panel 1 Procedure LRB Anes Op Region Wound Class Comments RIGHT HEART CATH N/A Moderate Sedation Surgeon Surgeon Role Service [...] suspected to have Coronavirus/COVID-19? No / Unsure 03/17/2022 6:40 PM EDT documented as of this encounter Last Filed Vital Signs Vital Sign Reading Time Taken Comments Blood Pressure 170/88 03/18/2022 2:45 PM EDT Pulse 75 03/18/2022 2:45 PM EDT Temperature 36.7 ??C (98.1 ??F) 03/18/2022 2:17 PM ED T Respiratory Rate 20 03/18/2022 2:17 PM EDT Oxygen Saturation 95% 03/18/2022 2:45 PM EDT Inhaled Oxygen Concentration 95% 03/18/2022 2 :45 PM EDT Weight - - Height - - Body Mass Index - - documented in this encounter Discharge Summaries * Shirley Jaimes DO - 03/25/2022 12:39 PM EDT [facility] Inpatient Discharge Summary Patient: Leoncio Rollins Jr. Age: 47 y.o. CSN: [id number] Date of Admission: 03/16/2022 Date of Discharge: [...] Case IDs Date Procedure Surgeon Location Status [id number] 03/18/22 EGD WITH BIOPSY Kelsey Carcamo MD ENDOSCOPY Can [id number] 03/18/22 RIGHT HEART CATH Oliver Reed MD CARDIAC CATH LABS Comp [id number] 03/23/22 EGD WITH BIOPSY Roxann Moore MD [...] Your Medications These medications were sent to [facility] [address] [place] [address] Hours: Monday - Monday: 8:00AM - 6:00PM [...] Center 04/12/2022 1:00 PM Nadya Wilhelm, PhD, DIRECTOR DATA-S P TRIM MAB MAB No follow-up provider [...] noted below: Note: This information is for [facility] Scheduling use only. It is not [...] 1:20 PM EDT Thank you for choosing [facility]! You were treated for Volume overload, [...] mg daily, lisinopril 40 mg daily, and oacagqacng53 mg twice daily. Your scheduled follow-up appointments are listed below. For any follow-up visits that have not beenscheduled yet, when our intensive care specialist is able to schedule them (usually within the next week), you will receive a call with those confirmed details. Future Appointments Date Time Provider Department Center 04/12/2022 1:00 PM Nadya West-Wood, PhD, DIRECTOR DATA-S UCP TRIM MAB MAB Please also follow-up [...] Admission Diagnosis: Hematochezia [K92.1] Date: 03/25/2022 [facility] Reviewed Pertinent hospital course: Yes Hospital Course PT/OT: 47 yo M presented to an OSH with complaint of blood in stool. CT performed at the OSH suggestive of PUD, also with hepatomegaly, periportal edema, and splenomegaly with EV and minimal ascites. Found to be hypertensive in ED. Transferred to [facility] for further evaluation, concernfor rejection and [...] plan of care. Gem Abarca, PT, DPT [facility] Hours: M-F [id number] Department Phone #: [phone] * Noel Moralez RN - 03/25/2022 2:48 [...] - Left AVF - Dr Enrique [facility] Reportedly nearly completed his last [...] questions. Stephan Sequeira Nephrology fellow Pager #: [phone] Reason for Consult ESRD on HD Chief [...] WC, Dariela Wood MD, 12.5 mg at 03/25/22 [...] 0900, Grace Payan DO, 1 mg at 125 ??? gabapentin (NEURONTIN) capsule 100 mg, 100 [...] & HS, Grace Payan DO,500 mg at 03/25/221123 ??? montelukast (SINGULAIR) tablet 10 mg, 10 mg, Oral, Daily 0900, Grace Payan DO, 10 mg at 03/25/22 1125 ??? mycophenolate (CELLCEPT) capsule 250 mg, 250 mg, Oral, BID, Grace Payan DO, 250 mg at 03/25/22 1125 ??? NIFEdipine (PROCARDIA-XL) 24 hr tablet 90 mg, 90 mg, Oral, BID, Neyda Espinoza MD, 90 mg at 03/25/22 1124 ??? oxyCODONE-acetaminophen (PERCOCET) 5-325 mg per tablet [...] is at baseline. Laboratory Date Recent Labs 03/23/2255403/24/2273803/25/22731 WBC 3.1* 2.8* 2.9* HGB 9.0* 8.4* 8.4* HCT 26.8* 24.6* 24.2* MCV 100.0 99.0 98.8 PLT 160 160 166 Recent Labs 03/23/2255403/24/2273803/25/22731 NA 133 130* 135 K 4.8 4.9 4.7 CL 97* 94* 96* CO2 25 24 28 BUN 28* 40* 32* CREATININE 5.65* 6.97* 6.48* GLUCOSE 87 101* 132* CALCIUM 8.4* 8.0* 8.1* MG 1.9 1.9 2.1 PHOS 3.6 3.9 3.7 ANIONGAP 11 12 11 Recent Labs 03/23/2255403/24/2273803/25/22731 CALCIUM 8.4* 8.0* 8.1* PHOS 3.6 3.9 3.7 Lab Results Component Value Date IRON 29 (L) 10/31/2021 TIBC 247 (L) 10/31/2021 FERRITIN 826.6 (H) 10/31/2021 Lab Results Component Value Date [id number] 325 03/24/2022 Lab Results Component Value Date [...] CO2UR, CRUR No results found for: MICROALBUR, [id number] In addition to the above an extensive [...] Department of Internal Medicine Transfer Acceptance Note Leoncio Rollins JrUbaldo is a 47 y.o. male with history [...] on a Protonix drip, and transferred to [facility] for further evaluation. Upon presentation to [facility], workup for peptic ulcer disease vs [...] 160 03/24/2022 Older/other lab results reviewed in [facility] Micro/Infection No new micro/infection studies to review All older studies personally reviewed in [facility] Diagnostic Imaging No new imaging to review All older imaging personally reviewed in [facility] Medications Scheduled Meds: ??? carBAMazepine 200 [...] oxyCODONE-acetaminophen, peppermint oiL Assessment & Plan Leoncio Oviedo Eh Parra. is a 47 y.o. male with history [...] Equipment Recommendations: Patient has needed bathroom DME [employer] Recs: Code Status: Full Code Dispo: floor [...] - Left AVF - Dr Enrique [facility] Reportedly nearly completed his last [...] questions. Stephan Sequeira Nephrology fellow Pager #: [phone] Reason for Consult ESRD on HD Chief [...] , Dariela Wood MD, 12.5 mg at 03/24/22 1744 ??? cinacalcet (SENSIPAR) tablet 60 mg, 60 mg, Oral, Daily with breakfast, Grace DO Schuyler, 60 mg at 03/24/22 1217 ??? cycloSPORINE modified (NEORAL/GENGRAF) capsule 100 mg, 100 mg, Oral, BID, Grace DO Schuyler, 100 mg at 03/24/22 1218 ??? dextrose 10%-water (D10W) IV soln, 12.5 g, Intravenous, Q15 Min PRN OR dextrose 10%-water (D10W) IV soln, 25 g, Intravenous, Q15 Min PRN, Grace Schuyler DO ??? entecavir (BARACLUDE) tablet 0.5 mg, 0.5 mg, Oral, Q7 Days, Irina Craven MD, 0.5 mg at ??? epoetin giancarlo-epbx (RETACRIT) injection solution 5,000 Units, 5,000 Units, Intravenous, Once perday on Mon, Stephan Sequeira MD, 5,000 Units at 03/23/22 1226 ??? fenofibrate tablet 160 mg, 160 mg, Oral, Daily 0900, Grace Schuyler DO, 160 mg at 03/24/221216 ??? folic acid (FOLVITE) tablet 1 mg, 1 mg, Oral, Daily 0900, Grace Payan DO, 1 mg at ??? gabapentin (NEURONTIN) capsule 800 mg, 800 mg, Oral, BID, Grace Payan DO, 800 mg at 03/24/221216 ??? glucose chewable tablet 12 g, 12 g, Oral, Q15 Min PRN, Grace Schuyler DO ??? heparin (porcine) injection 5,000 Units, [...] 0900, Sherly Hawkins MD, 40 mg at 08/11/22 1218 ??? magnesium oxide (MAG-OX) tablet 400 mg, 400 mg, Oral, BID, Laura Gonzalez MD, 400 mg at 03/24/22 1219 ? ? methocarbamoL (ROBAXIN) tablet 500 mg, 500 mg, Oral, 4x Daily AC & HS, Grace Payan DO,500 mg at 03/24/22 1745 ??? montelukast (SINGULAIR) tablet 10 mg, 10 mg, Oral, Daily 0900, Grace DO Schuyler, 10 mg at 03/24/22 1218 ??? mycophenolate (CELLCEPT) capsule 250 mg, 250 mg, Oral, BID, Grace Payan DO, 250 mg at 03/24/22 1217 ??? NIFEdipine (PROCARDIA-XL) 24 hr tablet 90 mg, 90 mg, Oral, BID, Neyda Espinoza MD, 90 mg at 03/24/22 1217 ??? oxyCODONE-acetaminophen (PERCOCET) 5-325 mg per tablet 1 tablet, 1 tablet, Oral, Q4H PRN, Gabriel Booht MD, 1 tablet at 03/24/22 1620 ??? [...] WC, Grace Payan DO, 1,600 mg at 03/24/22 1745 ??? sodium chloride 0.9 % infusion, 50 mL/hr, Intravenous, Continuous, Wilmer Hoyos MD ??? Place saline lock, , , Once AND sodium chloride flush 10 mL, 10 mL, Intravenous, QS, Grace Payan DO, 10 mL at 03/23/221 ??? terazosin (HYTRIN) capsule 10 mg, 10 mg, Oral, Nightly (2100), Grace Payan DO, 10 mg at 03/23/222126 Physical Examination [...] at baseline. Laboratory Date Recent Labs 03/22/22 0622 03/23/22 0555 03/24/22 0739 WBC 3.0* 3.1* 2.8* [...] (H) 10/31/2021 Lab Results Component Value Date [id number] 325 03/24/2022 Lab Results Component Value Date [...] CO2UR, CRUR No results found for: MICROALBUR, [id number] In addition to the above an extensive [...] Gonzalez MD - 03/24/2022 8:36 AM EDT [facility] CVICU Progress Note Room: [facility], LOS: 6 Background / Hosp course to [...] Patient states that when he was admitted [facility] that he had nausea, but have [...] 0900 ??? lisinopriL 40 mg Oral Daily 09 ? ? methocarbamoL 500 mg Oral 4x Daily AC & HS ??? montelukast 10 mg Oral Daily 0900 ??? mycophenolate 250 mg Oral BID ??? NIFEdipine 90 mg Oral BID ??? pantoprazole 40 mg Oral BID ??? polyethylene glycol 238 g Oral Daily 09 ??? sevelamer carbonate 1,600 mg Oral TID [...] patient at discharge.?? - Will partner w/ health social work professor to contact pt's CPAP company to change [...] Recommendations: Patient has needed bathroom DME - [employer] Recs: Signed: LAURA GONZALEZ CVICU Resident 03/24/2022, [...] - Left AVF - Dr Enrique [facility] Reportedly nearly completed his last [...] questions. Stephan Sequeira Nephrology fellow Pager #: [phone] Reason for Consult ESRD on HD Chief [...] Sherly Hawkins MD, 200 mg at 03/23/22 1116 ??? carvediloL (COREG) tablet 12.5 mg, 12.5 mg, Oral, BID WC, Dariela Wood MD, 12.5 mg at 03/23/22 1116 ??? cinacalcet (SENSIPAR) tablet 60 mg, 60 mg, Oral, Daily with breakfast, Grace Payan, DO, 60 mg at 03/23/22 1116 ??? cycloSPORINE modified (NEORAL/GENGRAF) capsule 100 mg, 100 mg, Oral, BID, Grace Payan, DO, 100 mg at 03/22/22 2100 ??? dextrose 10%-water (D10W) IV soln, 12.5 g, Intravenous, Q15 Min PRN OR dextrose 10%-water (D10W) IV soln, 25 g, Intravenous, Q15 Min PRN, Grace Payan, DO ??? entecavir (BARACLUDE) tablet 0.5 mg, 0.5 mg, Oral, Q7 Days, Irina Craven MD, 0.5 mg at 0 ??? epoetin giancarlo-epbx (RETACRIT) injection solution 5,000 Units, 5,000 Units, Intravenous, Once perday on Mon, Stephan Sequeira MD, 5,000 Units at 03/23/22 1226 ??? fenofibrate tablet 160 mg, 160 mg, Oral, Daily 0900, Grace DO Schuyler, 160 mg at 03/23/22 111 ??? folic acid (FOLVITE) tablet 1 mg, 1 mg, Oral, Daily 0900, Grace Payan DO, 1 mg at 116 ??? gabapentin (NEURONTIN) capsule 800 mg, 800 mg, Oral, BID, Grace Payan DO, 400 mg at 03/23/2230 ??? glucose chewable tablet 12 g, 12 g, Oral, Q15 Min PRN, Grace Payan DO ??? heparin (porcine) injection 5,000 Units, 5,000 Units, Subcutaneous, 3 times per day, Irina Craven MD ??? hydrALAZINE (APRESOLINE) tablet 100 mg, 100 mg, Oral, 3 times per day, Sherly Hawkins MD, 100 mg at 03/23/2230 ??? insulin lispro (humaLOG) injection 0-5 Units, 0-5 Units, Subcutaneous, TID AC, Dariela Wood MD, 1 Units at 03/22/22 1754 ??? isosorbide mononitrate (IMDUR) 24 hr tablet 60 mg, 60 mg, Oral, Daily 0900, Irina Craven MD, 60mg at 03/23/221115 ??? lisinopriL (PRINIVIL) tablet 40 mg, 40 mg, Oral, Daily 0900, Sherly Hawkins MD, 40 mg at 03/22/22 0841 ? ? methocarbamoL (ROBAXIN) tablet 500 mg, 500 mg, Oral, 4x Daily AC & HS, Grace Payan DO,500 mg at 03/23/22 1116 ??? montelukast (SINGULAIR) tablet 10 mg, 10 mg, Oral, Daily 0900, Grace Payan DO, 10 mg at 03/23/22 1116 ??? mycophenolate (CELLCEPT) capsule 250 mg, 250 mg, Oral, BID, Grace Payan DO, 250 mg at 03/23/22 1116 ??? NIFEdipine (PROCARDIA-XL) 24 hr tablet 90 [...] WC, Grace Payan DO, 1,600 mg at 03/23/22 1116 ??? sodium chloride 0.9 % infusion, 50 mL/hr, Intravenous, Continuous, Wilmer Hoyos MD ??? Place saline lock, , , Once AND sodium chloride flush 10 mL, 10 mL, Intravenous, QS, Grace Payan DO, 10 mL at 03/23/22 1244 ??? terazosin (HYTRIN) capsule 10 mg, 10 mg, Oral, Nightly (2100), Grace Payan DO, 10 mg at 03/22/22 2058 Physical Examination Vitals: 03/23/22 1723 BP: 169/80 Pulse: Resp: 18 Temp: 97.5 ??F (36.4 ??C) SpO2: 96% Patient Vitals for the past 4 hrs: BP Temp Temp src Pulse Resp SpO2 03/23/22 1723 169/80 97.5 ??F (36.4 ??C) Oral -- 18 96 % 08/10/22 1647 154/87 97.6 ??F (36.4 ??C) Oral [...] (H) 10/31/2021 Lab Results Component Value Date [id number] 1,355 (H) 10/31/2021 Lab Results Component Value [...] CO2UR, CRUR No results found for: MICROALBUR, [id number] In addition to the above an extensive [...] notes, assessments, and/or procedures performed by the fellow/resident/JAVASCRIPT FRONT END DEVELOPER/AI, discussed with the medical team, and I agree with as documented. Plan for daily MASTIC FLOOR LAYER/UF to challenge weight and optimize volume iHD today IS per liver team Sandra Carranza MD Transplant Nephrology Pager: [phone] * Earnest Plummer RN - 03/23/2022 12:45 [...] Admission Diagnosis: Hematochezia [K92.1] Date: 03/23/2022 Room: [address] [place] [address] Reviewed Pertinent hospital course: Yes Hospital Course PT/OT: 47 yo M presented to an OSH with complaint of blood in stool. CT performed at the OSH suggestive of PUD, also with hepatomegaly, periportal edema, and splenomegaly with EV and minimal ascites. Found to be hypertensive in ED. Transferred to [facility] for further evaluation, concernfor rejection and [...] level. Pt educated re: use of sockaid, product demonstrator, longhandled sponge and longhandled shoehorn, able to [...] use of longhandled spone, longhandled shoe-horn and product demonstrator for bathing/dressing tasks, pt demonstrating understanding Position [...] tolerate showering assessment (satisfactory for D/C 03/23) Skilled Nursing Goal : STG Collaborated with: Patient, Family [...] BACK SURGERY 04/2020 [facility] ??? CREATION AV FISTULA ??? ESOPHAGOGASTRODUODENOSCOPY [...] Gonzalez MD - 03/23/2022 8:07 AM EDT [facility] CVICU Progress Note Room: 6232/U6232, LOS: 5 Background / Hosp course to date: Leoncio Rollins Jr. is a 47 y.o. 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 GI PPx: PPI. PT/OT: consulted; recs appreciated - PT Recs: Recommendation: Home with intermittent assistance Equipment Recommended: None - OT Recs: Recommendation: Home with PRN assist, No skilled OT Equipment Recommendations: Patient has needed bathroom DME (continue to assess for lower body dressing DME) - [employer] Recs: Signed: LAURA GONZALEZ CVICU Resident 03/23/2022, [...] - Left AVF - Dr Enrique [facility] Reportedly nearly completed his last [...] questions. Stephan Sequeira Nephrology fellow Pager #: [phone] Reason for Consult ESRD on HD Chief [...] breakfast, Grace Payan DO, 60 mg at 03/22/22 0842 ??? cycloSPORINE modified (NEORAL/GENGRAF) capsule 100 mg, 100 mg, Oral, BID, Grace Payan DO, 100 mg at 03/22/22 0842 ??? dextrose [...] WC, Grace Payan DO, 1,600 mg at 03/22/22 1629 ??? Place saline lock, , , Once AND sodium chloride flush 10 mL, 10 mL, Intravenous, QS, Grace PayanDO michelle, 10 mL at 03/22/22 1319 ??? terazosin (HYTRIN) capsule 10 mg, 10 mg, Oral, Nightly (2100), Grace PayanDO michelle, 10 mg at 03/21/222036 Physical Examination Vitals: [...] Recent Labs 03/21/22 0512 03/21/22 1219 03/22/22 0603/22/22 1451 NA 134 136 133 135 K [...] (H) 10/31/2021 Lab Results Component Value Date [id number] 1,355 (H) 10/31/2021 Lab Results Component Value [...] CO2UR, CRUR No results found for: MICROALBUR, [id number] In addition to the above an extensive [...] team Sandra Carranza MD Transplant Nephrology Pager: [phone] * Wilmer Hoyos MD - 03/22/2022 3:29 PM EDT Brief Hepatology Note: Plan for EGD/Colonoscopy tomorrow morning. Clear liquid diet today, NPO at midnight. Miralax bowel prep ordered with dulcolax. * Irina Craven MD - 03/22/2022 7:49 AM EDT Department of Internal Medicine CVICU Progress Note Patient: Leoncio Rollins Jr. Date: 03/22/2022, 7:40 AM Location: [address] [place] [address] LOS: 4 days Attending: Ana Mercado MD Subjective Leoncio Rollins Jr.??is a 47 y.o.??male??with PMHx OLT in 2018 2/2 SAL cirrhosis,??ESRD on HD MWF,??HFintEF (45-50%) w/ Diastolic Dysfunction, WHO II Pulm HTN, presents with GIB Past 24 hrs: -HD yesterday; swan numbers following: CVP 18, PAP 56/28 (38), SvO2 67.1, CI 3.82. [place] and a-line removed. Transferred to floor. -VS: Afebrile, HR 69-82s, SBP 125-162/66-87 -weight 306 (03/18) -> 311 (03/21) -> pending weight from HD -I/O 6000/82074 net negative 6.5 -Labs: sodium 133, K [...] obesity, HTN, DM, OLT in 2018 2/2 SLA cirrhosis, ESRD on HD MWF, HTN heart [...] Shipley RD - 03/21/2022 4:42 PM EDT [facility] Medical Nutrition Therapy Reason(s) for Completion: Nutrition [...] obese Usual Weight: see weight hx above [place] Body Weight (+/- 10%): 160 lbs +/- 10% Estimated Nutrition Needs: Needs based On: 72.7 kg IBW Kcals/day: 3758-3089 kcals (30-35 kcals/kg IBW) Protein g/day: 145-181 [...] NELLY Clinical Dietitian-CVICU/6S Please reach out via [employer] secure chat for questions/concerns Pager: [phone] * Ayde Segura OT - 03/21/2022 3:20 PM EDT Occupational Therapy Initial Assessment Name: Leoncio Rollins Jr. : 1975 Attending Physician: Ana Mercado MD Admission Diagnosis: Hematochezia [K92.1] Date: 03/21/2022 Room: [facility] Reviewed Pertinent hospital course: Yes Hospital Course PT/OT: 47 yo M presented to an OSH with complaint of blood in stool. CT performed at the OSH suggestive of PUD, also with hepatomegaly, periportal edema, and splenomegaly with EV and minimal ascites. Found to be hypertensive in ED. Transferred to [facility] for further evaluation, concernfor rejection and [...] Goal #1: Patient will tolerate showering assessment Skilled Nursing Goal : STG Collaborated with: Patient, Family [...] BACK SURGERY 04/2020 [facility] ??? CREATION AV FISTULA ??? ESOPHAGOGASTRODUODENOSCOPY [...] EDT Physical Therapy Initial Assessment Name: Leoncio Oviedo Eh [...] to be hypertensive in ED. Transferred to [facility] for further evaluation, concernfor rejection and [...] with assistive device Distance (in feet): 100' Skilled Nursing Goal : =STG Patient/Family Education Educated patient [...] BACK SURGERY 04/2020 [facility] ??? CREATION AV FISTULA ??? ESOPHAGOGASTRODUODENOSCOPY [...] - Left AVF - Dr Enrique [facility] Reportedly nearly completed his last [...] questions. Stephan Sequeira Nephrology fellow Pager #: [phone] Reason for Consult ESRD on HD Chief [...] capsule 667 mg, 667 mg, Oral, TID WC, Grace Payan, DO, 667 mg at 03/21/22 1218 ??? carBAMazepine (TEGRETOL) tablet 200 mg, 200 mg, Oral, BID, Sherly Hawkins MD, 200 mg at 03/21/2230 ??? carvediloL (COREG) tablet 12.5 mg, 12.5 mg, Oral, BID , Dariela Wood MD, 12.5 mg at 03/21/22928 ??? cinacalcet (SENSIPAR) tablet 60 mg, 60 mg, Oral, Daily with breakfast, Grace Payan, DO, 60 mg at 03/21/22930 ??? cycloSPORINE modified (NEORAL/GENGRAF) capsule 100 mg, 100 mg, Oral, BID, Grace Payan, DO, 100 mg at 03/21/22930 ??? dextrose 10%-water [...] BID, Grace Payan, DO, 800 mg at 03/21/22 1217 ??? glucose chewable tablet 12 g, 12 g, Oral, Q15 Min PRN, Grace Payan DO ??? hydrALAZINE (APRESOLINE) tablet 100 mg, [...] 0900, Grace Payan DO, 10 mg at 03/21/22 0931 ??? mycophenolate (CELLCEPT) capsule 250 mg, 250 mg, Oral, BID, Grace Payan DO, 250 mg at 03/21/22 0930 ??? [...] (2100), Grace Payan, DO, 10 mg at 03/20/22 2141 [...] is at baseline. Laboratory Date Recent Labs 03/19/2234503/19/22174703/20/2235703/20/22 1728 03/20/22 2159 03/21/22 0512 03/21/22 1153 [...] 11 Recent Labs 03/19/22 0346 03/20/22 0358 03/21/22 0512 CALCIUM 8.0* 8.4* 8.5* PHOS 5.7* 5.1* 5.3* Lab Results Component Value Date IRON 29 (L) 10/31/2021 TIBC 247 (L) 10/31/2021 FERRITIN 826.6 (H) 10/31/2021 Lab Results Component Value Date [id number] 1,355 (H) 10/31/2021 Lab Results Component Value [...] CO2UR, CRUR No results found for: MICROALBUR, [id number] In addition to the above an extensive [...] team Sandra Carranza MD Transplant Nephrology Pager: [phone] * Keon Moy, MASTIC FLOOR LAYER - 03/21/2022 10:59 AM EDT RT was present for rounding with meter tester primary team. * Irina Craven MD - 03/21/2022 8:14 AM EDT Department of Internal Medicine CVICU Progress Note Patient: Leoncio Rollins Jr. Date: 03/21/2022, 7:56 AM Location: [facility]25/[facility]25 LOS: 3 days Attending: Ana Mercado MD Subjective Leoncio Rollins Jr.??is a 47 y.o.??male??with PMHx OLT in 2017 2 SAL cirrhosis,??ESRD on HD MWF,??HFintEF (45-50%) w/ [...] numbers following - will remove swan and [place] following ?? Discuss possibility of cortella v [...] of volume overload. Dry weight 125 kg. [place] numbers improving but still volume overloaded. CVP16 today. -HD today for fluid removal -discuss with nephrology possibility of PD for improved fluid removal at discharge -discuss possibility of cardiomems v cartella during admission -Leave [place] in. Grab numbers following HD today and likely remove swan and [place] following ?? #Uncontrolled??HTN - hydralazine 100mg q8h [...] I made a follow-up visit to Leoncio Rollins Jr. who was alone. I provided pastoral support [...] EDT RT was present for rounding with meter tester primary team. * Dariela Wood MD - 03/20/2022 [...] of volume overload. Dry weight 125 kg. [place] numbers improving but still volume overloaded. CVP16 today. -anuric. Will require dialysis for volume removal -nephrology consulted, will attempt multiple dialysis sessions for volume removal. Goal 3-4 L today. Another dialysis session today -Leave [place] in. Numbers q day after dialysis session. [...] 03/19/2022 10:21 AM Patient: Leoncio Rollins Jr. [id number] CVIC25/CVIC25 Date of Admit: 03/16/2022 LOS: 1 [...] - Left AVF - Dr Enrique [facility] Reportedly nearly completed his last [...] Noel Farah D.O. Nephrology Fellow PGY-5 Pager: [phone] Reason for Consult Chief complaint: blood in [...] 71 -- 100 % -- -- 03/19/22 0800 97.2 ??F (36.2 ??C) [place] 69 20 100 % -- -- 03/19/22 [...] 0659 03/19/22 0700 - 03/20/22 0659 Shift 3941-3485 1343-8495 6037-5837 24 Hour Total 7956-5120 7652-0725 7338-8948 24 Hour Total INTAKE P.O. 500 360 [...] Component Value Date PCO2 48 (H) 05/30/2020 [id number] 66.1 03/19/2022 Physical Exam General appearance: Awake [...] CO2UR, CRUR No results found for: MICROALBUR, [id number] Lab Results Component Value Date PTH 870.0 (H) 09/21/2021 CALCIUM 8.0 (L) 03/19/2022 PHOS 5.7 (H) 03/19/2022 Lab Results Component Value Date [id number] 15.8 (L) 01/14/2019 Anemia Labs: Lab Results Component Value Date IRON 29 (L) 10/31/2021 TIBC 247 (L) 10/31/2021 FERRITIN 826.6 (H) 10/31/2021 Lab Results Component Value Date [id number] 1,355 (H) 10/31/2021 Sepsis Marker Labs: No results for input(s): LACTATE in the last 72 hours. Lab Results Component Value Date FIBRINOGEN 454 (H) 07/20/2019 No results for input(s): TEGANGLE, TEGKTIME, XFHXCQMC60, TEGMAXAMPL, TEGRTIME, CBMZ in the last 72 [...] HIV1X2 Negative 03/18/2022 No results found for: [id number] No results found for: VDRLCSF Lab Results Component Value Date HEPAIGM Nonreactive 03/17/2022 HEPBCAB Reactive (A) 03/17/2022 No results found for: [id number] No results found for: OZJ2Y3STPL In addition to the above an extensive [...] 2D Complete (TTE) Result Date: 03/17/2022 * [facility]* [address] [place] [address] Transthoracic Echocardiography Patient: Leoncio Rollins MR #: [id number] Account: Study Date: 03/17/2022 Gender: M Age: 47 : 1975 Room: [facility] Dontae Hawkins MD PERFORMING Vinod Stokes MD READING Dontae Hawkins MD CRAYON SORTING MACHINE FEEDER Ashish Sheldon ORDERING Mandi Mora REFERRING Mandi [...] 2.1 FS, LAX (L) 21 % 25 43 FS, LAX chord (L) 21 % [...] Reviewed and confirmed by Vinod Stokes MD [id number]:59:52 US Abdomen Complete Result Date: 03/17/2022 EXAM: US ABDOMEN COMPLETE EXAM: US DUPLEX [id number]-IKKHTQ-NFNFHXS COMPLETE INDICATION: Elevated LFTs. Remote liver transplant. [...] at 03/17/2022 7:49 AM EDT US Duplex Rgf-Iva-Ybifman Comp Result Date: 03/17/2022 EXAM: US ABDOMEN COMPLETE EXAM: US DUPLEX VYI-TTGZIO-HJEDQYF COMPLETE INDICATION: Elevated LFTs. Remote liver transplant. [...] Diet cardiac no concentrated carbohydrates starting at 08 1115 Access: Patient Lines/Drains/Airways Status Active Epidural [...] Rollins Jr. Date: 03/19/2022, 7:10 AM Location: CV25/CVIC25 LOS: 1 days Attending: Ana Mercado MD [...] of volume overload. Dry weight 125 kg. Milan numbers improving but still volume overloaded. -anuric. Will require dialysis for volume removal -nephrology consulted, will attempt multiple dialysis sessions for volume removal. Goal 3-4 L today. Will attempt daily sessions -Leave Milan in. Numbers q day after dialysis session [...] below. Ana Mercado MD * Dayanara Carnes, RICARDO - 03/19/2022 4:38 AM EDT Pt placed [...] Upon the recommendation of the previous shift's heavy equipment supervisor, I visited Leoncio Rollins Jr. who was alone. Upon my third attempt to visit with him, I provided pastoral support and offered prayer with the patient who hails from [place], [place]. No follow-up visitation is required. Uptwist Spinner Austin Payan D.Min. * Dariela Chu DO - 03/18/2022 12:47 PM EDT BRIEF CARDIOLOGY FOLLOW-UP NOTE: Leoncio Rollins Jr. is a 47 y.o. male with SAL cirrhosis s/p OLT, ESRD, DM2 on insulin, JC on BiPAP, HTN, HFmrEF and pulmonary hypertension (post-capillary by 2018 [facility]). He is here for hematochezia and is [...] we r ecommended transfer to CVICU for Milan-guided management for HFpEF and RV failure. #HFmrEF exacerbation #RV failure #Post-capillary pulmonary hypertension #JC on BiPAP #Mitral valve vegetation #GI bleeding (stable) #Non-obstructive CAD (by CT coronary 2020 at OSH) #Prolonged QTc RECOMMENDATIONS: --Transfer to CVICU --GI consult --Discussed with primary team --Follow blood cultures Patient seen and discussed with the attending sales agent casualty insurance, Dr. Hernandez. Recommendations are considered preliminary until co-signed by the attending sales agent casualty insurance. Follow up appointments with Cardiology can be scheduled by calling [phone]. Thank you for involving us in their [...] Temp 96.6 ??F (35.9 ??C) Temp Source Milan Heart Rate 73 Heart Rate Source Monitor [...] - 03/18/2022 9:15 AM EDT Oliver Reed MD,[facility] Asst. Prof, Cardiovascular Health and [...] DO, MS Internal Medicine Resident, PGY-3 Pager [phone] 03/18/2022, 1:50 AM * Neyda Espinoza MD [...] q8h and lisinopril 40mg daily. Home Toprol [id number] adjusted - Continue home nifedipine 90mg BID [...] - PT Recs: - OT Recs: - CRADLE SLIDE MAKER Recs: Lines/Drains/Airway: Patient Lines/Drains/Airways Status Active Line [...] [place] , ESRD MWF who presented with [facility] for dialysis. Shortly after developed some epigastric [...] Hoyos MD - 03/23/2022 8:50 AM EDT [facility] PRE-SEDATION ASSESSMENT, HISTORY & PHYSICAL [...] BACK SURGERY 04/2020 [facility] ??? CREATION AV FISTULA ??? ESOPHAGOGASTRODUODENOSCOPY [...] skin daily as needed. 04/26/21 Yes Historical ProviderMD methocarbamoL (ROBAXIN) 500 MG tablet Take 500 [...] and have discussed the case with Dr. Hooys and agree with their pre- operative anesthesia evaluation note andconfirm it. Roxann Moore MD Transplant Hepatology [phone] (p) * Dariela Wood MD - 03/18/2022 [...] BACK SURGERY 04/2020 [facility] ??? CREATION AV FISTULA ??? ESOPHAGOGASTRODUODENOSCOPY [...] Feng CNP blood-glucose meter (ONETOUCH VERIO SYSTEM) [facility] Use as instructed. 10/18/17 Yes Bere Feng [...] at 03/17/2022 10:32 AM EDT US Duplex Txu-Fjn-Vhpatbk Comp Final Result IMPRESSION: ABDOMEN 1. Normal [...] L today. Will attempt daily sessions -Leave Milan in. Numbers q day after dialysis session [...] Booth MD - 03/18/2022 8:04 AM EDT [facility] PRE-SEDATION ASSESSMENT, HISTORY & PHYSICAL [...] BACK SURGERY 04/2020 [facility] ??? CREATION AV FISTULA ??? ESOPHAGOGASTRODUODENOSCOPY [...] Feng CNP blood-glucose meter (ONETOUCH VERIO SYSTEM) [facility] Use as instructed. 10/18/17 Yes Bere Feng [...] and plan. Oliver Reed MD * Ted Barrow DO - 03/16/2022 11:55 PM EDT Department of Internal Medicine History & Physical Patient: Leoncio Rollins Jr. CSN: [id number] Chief Complaint Hematochezia History of Present Illness Leoncio Rollins Jr. is a 47 y.o. male with PMHx OLT in 2018 2 SAL cirrhosis, ESRD on HD MWF, presenting [...] a drip. He was subsequently transferred to [facility] for further evaluation. Review of Systems [...] BACK SURGERY 04/2020 [facility] ??? CREATION AV FISTULA ??? ESOPHAGOGASTRODUODENOSCOPY [...] Feng CNP blood-glucose meter (ONETOUCH VERIO SYSTEM) [facility] Use as instructed. 10/18/17 Yes Bere Feng [...] mouth 2 times a day. 02/09/22 Yes Jakc Ordoñez MD NIFEdipine (PROCARDIA-XL) 90 MG (OSM) [...] LFTs 10/31/2021 \ 0.5 / \ 0.0 / 20 \ / / \ / 92 \ PT/INR/PTT - 07/19/2020 PT 14.5 INR [...] Minimal ascites Assessment & Plan Leoncio Rollins Jr. is a 47 y.o. male being admitted [...] Moore MD - 03/23/2022 9:13 AM EDT [id number] Procedure Date: 03/23/2022 9:13 AM Patient Name: [...] verified by the physician, the nurse, the block chopper hand and the diagnostic technician in the procedure room. Mental Status [...] for surveillance. Procedure Code(s): --- Professional --- 34747, GC, Colonoscopy, flexible; diagnostic, including collection of specimen(s) by brushing or washing, when performed (separate procedure) Diagnosis Code(s): --- Professional --- K64.8, Other hemorrhoids K92.1, Melena (includes Hematochezia) CPT copyright 2020 [employer]. All rights reserved. The codes documented in this report are preliminary and upon ham facer review may be revised to meet current compliance requirements. ROXANN MOORE Roxann Moore, 03/23/2022 9:51:42 AM Husam Wilmer Hoyos, 03/23/2022 9:50:30 AM Scope Withdrawal Time 0 hours 8 minutes 24 seconds Total Procedure Duration Time 0 hours 15 minutes 38 seconds Scope In: 9:18:06 AM Scope Out: 9:33:[address] [place] [id number] * Roxann Moore MD - 03/23/2022 9:04 AM EDT [id number] Procedure Date: 03/23/2022 9:04 AM Patient Name: [...] verified by the physician, the nurse, the block chopper hand and the diagnostic technician in the procedure room. Mental Status [...] previously scheduled. Procedure Code(s): --- Professional --- 15339, Esophagogastroduodenoscopy, flexible, transoral; with biopsy, single or multiple Diagnosis Code(s): --- Professional --- K44.9, Diaphragmatic hernia without obstruction or gangrene K25.9, Gastric ulcer, unspecified as acute or chronic, without hemorrhage or perforation K31.89, Other diseases of stomach and duodenum R10.13, Epigastric pain CPT copyright 2020 [employer]. All rights reserved. The codes documented in this report are preliminary and upon ham facer review may be revised to meet current compliance requirements. ROXANN MOORE Roxann Moore, 03/23/2022 9:49:40 AM Husam Wilmer Hoyos, 03/23/2022 9:45:30 AM Total Procedure Duration Time 0 hours 7 minutes 26 seconds Scope In: 9:03:43 AM Scope Out: 9:11:[address] [place] [address] * Dariela Wood MD - 03/18/2022 8:54 [...] temperature 98.5 ??F (36.9 ??C), temperature source Milan, resp. rate 20, weight (!) 305 lb 1.9 oz (138.4 kg), SpO2 90 %. Insert Arterial Line Date/Time: 03/18/2022 8:54 PM Performed by: Dariela Wood MD Authorized by: Dariela Wood MD Consent: Consent obtained: Written Consent given by: Patient Risks, benefits, and alternatives were discussed: yes Loma protocol: Patient identity confirmed: Verbally with patient [...] EDTAssociated Order(s): IP CONSULT TO NUTRITION SERVICES [facility] Medical Nutrition Therapy Follow-Up Reason(s) for Completion: Physician/Nursing Referral- pt request Diet Order/Nutrition Support: Cardiac with thin liquids; 2 L fluid restriction; 2 g Sodium Pertinent Information: Leoncio Rollins JrUbaldo is a 47 y.o. male with history of OLT in 2018 09/15 SAL cirrhosis,??ESRD on [...] Needs based On: 72.7 kg IBW Kcals/day: 9914-2129 kcals (30-35 kcals/kg IBW) Protein g/day: 145-181 [...] Arias RDN, LDN Clinical Dietitian Contact via [employer] messenger * Saleem Shipley RN - 03/22/2022 2:32 PM EDT HEALTH Care Management/Social Work Assessment Patient Information Hospital Day: 4 Inpatient/Observation: Inpatient Admit Date: 03/16/2022 Admission Diagnosis: Hematochezia [K92.1] Attending provider: Ana Mercado MD PCP: Edgar Fournier MD Home Pharmacy: [facility] [address] [facility] [address] [facility] [address] [facility] [address] [facility] [phone] [facility] [address] [facility] [address] [facility] [address] [facility] [address] [facility] [address] Pertinent Medications Anticoagulation therapy: No New Diabetic: [...] Wheelchair, Cane (rollator) Respiratory Company Name/Phone #: [employer] [facility] maufait [phone] Oxygen Needs: CPAP Dialysis Needs: Hemodialysis HD Clinic Name and Location: [facility] [phone] fax: [phone] HD days of week: MWF HD time of day: 745 HD Transportation provided by: self Was any abuse reported by patient?: No Support Systems Emergency contact: Extended Emergency Contact Information Primary Emergency Contact: Kym Rollins Address: [address] [place] [address] Mobile Relation: Spouse Secondary Emergency Contact: Kimberly Rollins [facility] Relation: Mother Support Systems Legal Status: [...] his spouse Kym. Pt receives HD from [facility] [phone] . MWF, drives self. Chair time 7:45am [...] home. Pt has a CPAP supplied through [facility] maufait [phone]. Pt reports his spouse will be able [...] as appropriate. Saleem Shipley RN Phone Number: [phone] * Wilmer Hoyos MD - 03/21/2022 6:24 PM EDTAssociated Order(s): IP CONSULT TO LIVER Images from the original note were not included. Department of Digestive Diseases Hepatology Consult Note Name: Leoncio Rollins Jr. CSN: [id number] Consulted by: Ana Mercado MD Reason for [...] PUD, ascites, and EV. Was transferred to [facility] GI wards where plans were made [...] BACK SURGERY 04/2020 [facility] ??? CREATION AV FISTULA ??? ESOPHAGOGASTRODUODENOSCOPY [...] for: CA125 Lab Results Component Value Date [id number] 1,355 (H) 10/31/2021 Lab Results Component Value [...] X-ray Portable Chest Final Result IMPRESSION: 1. Milan-Viviana catheter tip in the left lower lobe [...] at 03/17/2022 10:32 AM EDT US Duplex Ryc-Mkc-Dnfetzi Comp Final Result IMPRESSION: ABDOMEN 1. Normal [...] Hoyos MD Gastroenterology/Hepatology Fellow- PGY 6 Pager [phone] Cosigned by Roxann Moore MD at 03/21/2022 [...] liver pathology. Roxann Moore MD Transplant Hepatology [phone] (p) * Dariela Chu, DO - 03/17/2022 8:59 PM EDTAssociated Order(s): IP CONSULT TO CARDIOLOGY [facility] Department of Cardiovascular Health and Diseases General [...] and pulmonary hypertension (post- capillary by 2018 [facility]). He is here for hematochezia and is being considered for EGD/Colonoscopy. EGD/Colonoscopy is a relatively low risk procedure and risk stratification is limited as estimated risk of complications is typically for procedures of intermediate-high risk of issues. However, generally he has an elevated risk of perioperative /IN and cardiac arrest in the 10-15% range [...] the following: --Right heart catheterization, NPO @ [place] --CTPA at discretion of primary team regarding [...] Patient seen and discussed with the attending sales agent casualty insurance, Dr. Hernandez. Recommendations are considered preliminary until co-signed by the attending sales agent casualty insurance. Follow up appointments with Cardiology can be scheduled by calling [phone]. Thank you for involving us in their [...] BACK SURGERY 04/2020 [facility] ??? CREATION AV FISTULA ??? ESOPHAGOGASTRODUODENOSCOPY N/A 07/24/2019 Procedure: EGD WITH BIOPSY; Surgeon: Jack Ordoñez MD; Location: ENDOSCOPY; Service: Gastroenterology; Laterality: N/A; ??? ESOPHAGOGASTRODUODENOSCOPY N/A 05/29/2020 Procedure: EGD WITH BIOPSY; Surgeon: Rasihd Hedrick MD; Location: ENDOSCOPY; Service: Gastroenterology; Laterality: [...] 03/16/2022 at Unknown time ??? blood-glucose meter (Spinal Integration VERIO SYSTEM) [facility] Use as instructed. 1 each 0 03/16/2022 [...] 0659 03/17/22 0700 - 03/18/22 0659 Shift 6377-1004 2292-8156 24 Hour Total [phone] 0381-2276 3288-2465 24 Hour Total INTAKE P.O. 120 120 [...] 03/16/22 Echo 2D Complete (TTE) Narrative * [facility]* [address] [place], [place] [id number] Transthoracic Echocardiography Patient: Leoncio Rollins MR #: [id number] Account: Study Date: 03/17/2022 Gender: M Age: 47 : 1975 Room: [facility] FELLOW Dontae MD DENNY Hawkins MD, MD CRAYON SORTING MACHINE FEEDER Ashish Sheldon ORDERING Mandi Mora REFERRING Mandi Mora ATTENDING Kelsey Carcamo ADMITTING Carlos Alberto Kelsey Ravi Procedure:ECHO 2D COMPLETE (TTE) Order: Indications: Heart [...] 43 FS, LAX chord (L) 21 % 43 ESD (H) 4.5 cm 2.5 - 4.0 ESD/bsa (N) 1.7 cm/m^2 1.3 - 2.1 PW, ED (H) 1.5 cm 0.6 - 1.0 IVS/PW, ED 1 EDV (H) 160 ml 62 - 150 ESV (H) 92 ml EF (L) 42 % 52 - 72 [...] Reviewed and confirmed by Vinod Stokes MD [id number]:59:52 Last Stress test: Results for orders placed [...] encounter of 06/05/18 Cardiac Cath Narrative * *[facility]* Cardiac Director Of Assessing [address] [place] [address] CATHETERIZATION LAB STUDY Patient: Eh, Age: 43 Study 06/05/2018 Leoncio Date: Patient [id number] Gender: M Study 01:25 PM ID: Time: [...] : Fluoroscopy dose: 72.8cGy. Location: [facility] PROCEDURE: 1. Initial setup. The patient was brought to the laboratory in the fasting state. Surface ECG leads, blood pressure measurements, and pulse oximetric signals were monitored. 2. Skin preparation. The planned puncture sites were prepped and draped in the usual sterile manner. 3. Right internal jugular vein access. A 4f Evergage mini access kit sheath was advanced into the vessel. 4. Sheath exchange. The sheath was exchanged for a 5lt11eb pinnacle sheath. 5. Right heart catheterization. A 6f swan-viviana td catheter was advanced via the access site into the right atrium, right ventricle, pulmonary artery and wedge position under fluoroscopic guidance. 6. Right radial artery access. A 4zr18bl glidesheath - slender - .021 sheath was advanced into the vessel. 7. Left heart catheterization. A 5f pigtail 145 catheter was advanced across the aortic valve to the left ventricle under fluoroscopic guidance. 8. Selective left coronary angiography. A [id number] tig 4.0 catheter was advanced into the left coronary vessel ostium under fluoroscopic guidance. Contrast was injected. Images were obtained in multiple projections. 9. Selective right coronary angiography. A [id number] tig 4.0 catheter was advanced into the [...] + + !PA wedge a/v (m) ! (18) ! + + + !LV pressure [...] + + +-----+ + !Condition1:Condition 1 - !OmsqkgmN6Ecykvlwzyjo!292.5!ml/min ! !Abelino ! ! ! ! + [...] +-----+-----+ !Condition1:Condition 1!PeakdPdt - LV - 6 !2347 !-----! + + +-----+-----+ !Condition1:Condition 1!VDiastolic - LV - 6!16 !mmHg ! + + +-----+-----+ !Condition1:Condition 1!PeakdPdt - LV - 7 !2311 !-----! + + +-----+-----+ !Condition1:Condition 1!VDiastolic - [...] and electronically signed by Jay Talley MD [id number]:19:37 Last Cardiac MRI No results found for this or any previous visit. Emergency Contact Information Emergency Contact: Extended Emergency Contact Information Primary Emergency Contact: Kym Rollins Address: [place] [address] [facility] [place] Relation: Spouse Secondary Emergency Contact: Kimberly Rollins [facility] Relation: Mother Cosigned by Wilmer Hernandez [...] 03/17/2022 6:49 PM Patient: Leoncio Rollins Jr. [id number] Date of Admit: 03/16/2022 LOS: 1 [...] Fortino Palomino DO Nephrology Fellow, PGY-4 Pager: [phone] Reason for Consult Chief complaint: blood in [...] BACK SURGERY 04/2020 [facility] ??? CREATION AV FISTULA ??? ESOPHAGOGASTRODUODENOSCOPY [...] time ??? blood-glucose meter (ONETOUCH VERIO SYSTEM) [facility] Use as instructed. 1 each 0 03/16/2022 [...] - 03/17/2265803/17/22 07 - 03/18/22 0659 Shift 9024-1529 7412-1595 24 Hour Total 9391-6238 1620-6445 6954-1640 24 Hour Total INTAKE P.O. 120 120 [...] Component Value Date PCO2 48 (H) 05/30/2020 HYQ3WAA 90.1 (L) 05/30/2020 Physical Exam General appearance: [...] CO2UR, CRUR No results found for: MICROALBUR, IMHU26QND Lab Results Component Value Date PTH 870.0 (H) 09/21/2021 CALCIUM 9.1 03/16/2022 PHOS 4.9 (H) 03/16/2022 Lab Results Component Value Date YOCQ48X 15.8 (L) 01/14/2019 Anemia Labs: Lab Results Component Value Date IRON 29 (L) 10/31/2021 TIBC 247 (L) 10/31/2021 FERRITIN 826.6 (H) 10/31/2021 Lab Results Component Value Date JIKSBCIK60 1,355 (H) 10/31/2021 Sepsis Marker Labs: No results for input(s): LACTATE in the last 72 hours. Lab Results Component Value Date FIBRINOGEN 454 (H) 07/20/2019 No results for input(s): TEGANGLE, TEGKTIME, WKQOUGKM56, TEGMAXAMPL, TEGRTIME, CBMZ in the last 72 [...] found for: HIV1X2 No results found for: ZC2XZWZU No results found for: VDRLCSF Lab Results Component Value Date HEPAIGM Nonreactive 10/31/2021 HEPBCAB Reactive (A) 10/31/2021 No results found for: WJP0P8KI No results found for: DEV2J7BBAY In addition to the above an extensive [...] 2D Complete (TTE) Result Date: 03/17/2022 * [facility]* [address] [place] [address] Transthoracic Echocardiography Patient: Leoncio Rollins MR #: [id number] Account: Study Date: 03/17/2022 Gender: M Age: 47 : 1975 Room: [facility] FELLOW MD DENNY Reid MD READING Dontae Hawkins MD CRAYON SORTING MACHINE FEEDER Ashish Sheldon ORDERING Mandi Mora REFERRING Mandi Mora ATTENDING Kelsey Carcamo ADMITTING Carlos Alberto Kelsey Rodrigues Procedure:ECHO 2D COMPLETE (TTE) Order: ---- Indications: [...] 137 SV/bsa, 1-p A4C 36 ml/m^2 59 E'gideon TDI (N) 10.9 cm/sec 17.9 >=10.0 E/e', gideon oreilly, TDI 11 8 A'gideon TDI 11.9 cm/sec E'/a', lat denilson, TDI [...] Reviewed and confirmed by Vinod Stokes MD [id number]:59:52 US Abdomen Complete Result Date: 03/17/2022 EXAM: US ABDOMEN COMPLETE EXAM: US DUPLEX HGY-CZXLIA-RQCNYRV COMPLETE INDICATION: Elevated LFTs. Remote liver transplant. [...] at 03/17/2022 7:49 AM EDT US Duplex Ycu-Wrc-Usebxaq Comp Result Date: 03/17/2022 EXAM: US ABDOMEN COMPLETE EXAM: US DUPLEX AOL-MFNQXG-KODEZXW COMPLETE INDICATION: Elevated LFTs. Remote liver transplant. [...] allowed until 0500. starting at 08 0000 Diet clear liquid Clear Liquid; No; [...] PM EDT Leoncio Rollins Jr. admitted to [facility] [id number]. Patient AxO X4. Pt BP elevated [...] it was obtained on 03/23/22. Ciera Robbins [facility] K 12 Principal Fire Technology Instructor [phone] * Plan of Care - Shilpa Rico [...] a Crit Line Used for this Treatment? [place] of provider contacted to adjusted target fluid removal? Provider Name or n/a: n/a Was an order modification for fluid removal given? No Did patient meet fluid removal goal of 0.7 L above or below ordered UF? Yes RN Report Received From: Yodit RN Report Given To: Noel Hepatitis Status: Hep [...] a Crit Line Used for this Treatment? [place] of provider contacted to adjusted target fluid [...] Shipley RN - 03/23/2022 1:28 PM EDT [facility] Case Management/Social Work Department Progress Note [...] deficiency. PCP: Edgar Fournier MD Home Pharmacy: [facility] [address] [facility] [address] [facility] [address] [address] [facility] [address] [facility] [address] [facility] [address] [facility] [address] [facility] [address] Medical Insurance Coverage: Payor: ANTHEM DUAL ADVANTAGE [...] discharge planning needs. Saleem Shipley RN Cell [phone] * Care Coordination - Roseann Kimble - 03/23/2022 11:30 AM EDT DCPA completed IMM with pt at bedside. Pt verbalized understanding, copy placed in hard chart. Roseann Kimble Discharge Aircraft Instrument Repairer Cell [phone] * Plan of Care - Yareli Dominguez [...] Outcome: Progressing * Plan of Care - Kraolina Weaver RN - 03/22/2022 12:55 PM EDT [...] Shipley RN - 03/22/2022 10:22 AM EDT [facility] Case Management/Social Work Department Progress Note [...] deficiency. PCP: Edgar Fournier MD Home Pharmacy: [facility] [address] [facility] [address] [facility] [address] [address] [facility] [address] [facility] [address] [facility] [address] [facility] [address] [facility] [address] Medical Insurance Coverage: Payor: ANTHEM DUAL ADVANTAGE [...] Pt provided CM the contact information for [facility] [phone], supplier of hisCPAP. CM spoke with [facility] and reported issue with pt's CPAP, [facility] reported that pt needed to have settings adjusted or may need a BiPAP but they would need orders to adjust settings or change machine to a BiPAP. [facility] also reported that they don't have loaner machines. If machine if out of warrantee then pt would be responsible for out of pocket replacement cost perCPAP company. CPAP company reported they needed to speak with their supervisor painting and would contact this CM back about what next steps need to be done. Update 345pm- [facility] contacted CM and reported that they would need a Rx from the MD to update pt's setting to either IPAP/EPAP or auto BiPAP with pressure support. Updated Rx should be faxedto [phone]. CM updated MD on need for Rx with CPAP settings. Discharge Plan Anticipated discharge plan: home Anticipated discharge date: 03/24/22 CM/SW will continue to follow and remain available for discharge planning needs. Saleem Shipley RN Gwqn [phone] * Plan of Care - Analia Mullins [...] Shipley RN - 03/21/2022 1:33 PM EDT [facility] Case Management/Social Work Department Progress Note [...] deficiency. PCP: Edgar Fournier MD Home Pharmacy: [facility] [address] [facility] [address] Level [facility] [address] [facility] - [facility] [address] [facility] [address] [facility] [phone] [facility] [address] [facility] [address] [facility] [address] [facility] [address] [facility] [address] Medical Insurance Coverage: Payor: [employer] D[employer]VANTAGE (HMO SNP) / Plan: [employer] ADVANTAGE / Product Type: *No Product type* / Other Pertinent Information CM rounded with CVICU team A, per team pt not medically ready. Discharge Plan Anticipated discharge plan: home Anticipated discharge date: 03/24/22 CM/SW will continue to follow and remain available for discharge planning needs. Saleem Shipley RN Cell [phone] * Plan of Care - Janice Gonzalez [...] a Crit Line Used for this Treatment? [place] of provider contacted to adjusted target fluid [...] Hickman RN - 03/17/2022 3:56 PM EDT [facility] Case Management/Social Work Department Discharge Planning Screen Screening Questions Do you need help filling out medical forms: No Is patient from anywhere other than a private residence? (assisted, SNF, LTC, IPR, LTAC, etc.): No Do [...] planning needs. Skylar Hickman RN Case Manager [phone] documented in this encounter Plan of Treatment Upcoming Encounters Date Type Department Care Team (Late st Contact Info) Description 07/15/2024 9:00 AM EST Hospital Encounter [facility] Interventional Radiology [address] [place] [phone] Herve Carrillo MD [address] [facility] [address] [place] [phone] Scheduled Orders Name Type Priority Associated Diagnoses [...] to [age] in [age], unspecified obesity type (CMS-HCC) Ordered: 03/25/2022 documented as of this encounter [...] AM EDT RACHAEL RHYTHM STRIP - SCAN 03/23/20 11:05 PM EDT POC GLU MONITORING DEVICE Routine 03/23/2022 9:14 PM EDT POC GLU MONITORING DEVICE Routine 03/23/2022 5:23 PM EDT POC GLU MONITORING DEVICE Routine 03/23/2022 12:15 PM EDT ENDOSCOPY, COLON Routine 03/23/2022 9:13 AM EDT UPPER GI ENDOSCOPY Routine 03/23/2022 9: 04 AM EDT POC GLU MONITORING DEVICE Routine 03/23/2022 8:29 AM EDT RACHAEL RHYTHM STRIP - SCAN 03/23/20 7:15 AM EDT RENAL FUNCTION PANEL W/EGFR Routine 03/23/2022 5:55 AM EDT CBC Routine 03/23/2022 5:55 AM EDT MAGNESIUM Routine 03/23/2022 5:55 AM EDT RACHAEL RHYTHM STRIP - SCAN 03/23/20 1:53 AM EDT POC GLU MONITORING DEVICE Routine 03/23/2022 12:03 AM EDT SURGICAL PATHOLOGY EXAM Routine 03/23/20 12:00 AM EDT POC GLU MONITORING DEVICE [...] PM EDT VENOUS O2 SAT, MEASURED Routine 03/21/20 11:53 AM EDT HEMOGLOBIN, BLOOD GAS Routine 03/21/2022 11:53 AM EDT POC GLU MONITORING DEVICE Routine 03/21/2022 11:46 AM EDT POC GLU MONITORING DEVICE Routine 03/21/2022 8:39 AM EDT RENAL FUNCTION PANEL W/EGFR Routine 03/21/2022 5:12 AM EDT CBC Routine 03/21/2022 5:12 AM EDT MAGNESIUM Routine 03/21/2022 5:12 AM EDT VENOUS O2 SAT, MEASURED Routine 03/20/20 9:59 PM EDT HEMOGLOBIN, BLOOD GAS Routine 03/20/2022 9:59 PM EDT RACHAEL RHYTHM STRIP - SCAN 03/20/20 6:29 PM EDT VENOUS O2 SAT, MEASURED Routine 03/20/20 5:28 PM EDT HEMOGLOBIN, BLOOD GAS Routine 03/20/2022 5:28 PM EDT POC GLU MONITORING DEVICE Routine 03/20/2022 5:21 PM EDT POC GLU MONITORING DEVICE Routine 03/20/2022 11:37 AM EDT CYCLOSPORINE LEVEL Timed 03/20/2022 9: 28 AM EDT POC GLU MONITORING DEVICE Routine 03/20/2022 7:43 AM EDT XR PORTABLE CHEST Routine 03/20/2022 7:0 5 AM EDT VENOUS O2 SAT, MEASURED Routine 03/20/20 3:58 AM EDT RENAL FUNCTION PANEL W/EGFR Routine 03/20/2022 3:58 AM EDT HEMOGLOBIN, BLOOD GAS Routine 03/20/2022 3:58 AM EDT CBC Routine 03/20/2022 3:58 AM EDT MAGNESIUM Routine 03/20/2022 3:58 AM EDT POC GLU MONITORING DEVICE Routine 03/19/2022 6:36 PM EDT VENOUS O2 SAT, MEASURED Routine 03/19/20 5:48 PM EDT HEMOGLOBIN, BLOOD GAS Routine 03/19/2022 5:48 PM EDT POC GLU MONITORING DEVICE Routine 03/19/2022 11:50 AM EDT XR PORTABLE CHEST Routine 03/19/2022 11: 15 AM EDT RACHAEL RHYTHM STRIP - SCAN 03/19/20 9:48 AM EDT POC GLU MONITORING DEVICE Routine 03/19/2022 8:02 AM EDT XR PORTABLE CHEST Routine 03/19/2022 6:2 6 AM EDT BLOOD CULTURE-PERIPHERAL Routine 03/19/2022 5:30 AM EDT BLOOD CULTURE-PERIPHERAL Routine 03/19/2022 5:30 AM EDT VENOUS O2 SAT, MEASURED Routine 03/19/20 3:46 AM EDT RENAL FUNCTION PANEL W/EGFR [...] PM EDT VENOUS O2 SAT, MEASURED Routine 03/18/20 9:32 AM EDT HEMOGLOBIN, BLOOD GAS STAT [...] Routine 03/17/2022 9:57 AM EDT US DUPLEX VIL-[id number] COMPLETE Routine 03/17/2022 8:09 AM EDT US [...] - 146 mmol/L 03/25/2022 8:08 AM EDT [facility] Potassium 4.7 3.5 - 5.3 mmol/L 03/25/2022 8:08 AM EDT [facility] Chloride 96(L) 98 - 110 mmol/L 03/25/2022 8:08 AM EDT [facility] CO2 28 21 - 33 mmol/L 03/25/2022 8:08 AM EDT [facility] Anion Gap 11 3 - 16 mmol/L 03/25/2022 8:08 AM EDT [facility] BUN 32(H) 7 - 25 mg/dL 03/25/2022 8:08 AM EDT [facility] Creatinine 6.48(H) 0.60 - 1.30 mg/dL 03/25/2022 8:08 AM EDT [facility] Glucose 132(H) 70 - 100 mg/dL 03/25/2022 8:08 AM EDT [facility] Calcium 8.1(L) 8.6 - 10.3 mg/dL 03/25/2022 8:08 AM EDT [facility] Phosphorus 3.7 2.1 - 4.7 mg/dL 03/25[facility]2022 [facility] Albumin 4.2 3.5 - 5.7 g/dL 03/25/2022 8:08 AM EDT [facility] Osmolality, Calculated 289 278 - 305 mOsm/kg 03/25/2022 8:08 AM EDT [facility] EGFR 10 03/25/2022 8:08 AM [facility] Comment:As of 2021, the [...] ORDERABLES Final Resu lt Performing Organization Address City/[facility]/ZIP Co de Phone Number [facility] [address] * (ABNORMAL) CBC (03/25/2022 7:32 AM EDT) WBC 2.9(L) 3.8 - 10.8 10E3/uL 03/25/2022 7:47 AM EDT [facility] RBC 2.45(L) 4.20 - 5.80 10E6/uL 03/25/2022 7:47 AM EDT [facility] Hemoglobin 8.4(L) 13.2 - 17.1 g/dL 03/25/2022 7:47 AM EDT [facility] Hematocrit 24.2(L) 38.5 - 50.0 % 03/25/2022 7:47 AM EDT [facility] MCV 98.8 80.0 - 100.0 fL 03/25/2022 7:47 AM EDT [facility] MCH 34.3(H) 27.0 - 33.0 pg 03/25/2022 7:47 AM EDT [facility] MCHC 34.7 32.0 - 36.0 g/dL 03/25/2022 7:47 AM EDT [facility] RDW 13.6 11.0 - 15.0 % 03/25/2022 7:47 AM EDT [facility] Platelets 166 140 - 400 10E3/uL 03/25/2022 7:47 AM EDT [facility] MPV 7.4(L) 7.5 - 11.5 fL 03/25/2022 7:47 AM EDT [facility] Whole Blood 03/25/2022 7:32 AM EDT 03/25/2022 7:38 AM EDT Laura Gonzalez MD LAB BLOOD ORDERABLES Final Resu lt Performing Organization Address City/[facility]/ZIP Co de Phone Number [facility] [address] * Magnesium (03/25/2022 7:32 AM EDT) Magnesium 2.1 1.5 - 2.5 mg/dL 03/25/2022 8:08 AM EDT [facility] Plasma 03/25/2022 7:32 AM EDT 03/25/2022 7:38 AM EDT us Laura Gonzalez MD LAB BLOOD ORDERABLES Final Resu lt [facility] [address] * (ABNORMAL) POC Glucose Monitoring Device (03/25/2022 12:16 AM EDT) [facility] POC Glucose Monitoring Device 135(H) 70 - 100 mg/dL 03/25/2022 12:20 AM EDT [facility] Blood 03/25/2022 12:1 6 AM EDT 03/25/2022 12:20 AM EDT us Kelsey Carcamo MD POINT OF CARE TEST ORDERA BLES Final Result Performing Organization Address City/[facility]/ZIP Co de Phone Number [facility] [address] [place] [address] * (ABNORMAL) Venous Blood Gas, Line/Syringe (03/24/2022 11:34 PM EDT) PH-Line Draw 7.40 7.32 - 7.42 03/24/2022 11:42 PM EDT [facility] PCO2-Line Draw 45 41 - 51 mm Hg 03/24/2022 11:42 PM EDT [facility] PO2-Line Draw 50(H) 25 - 40 mm Hg 03/24/2022 11:42 PM EDT [facility] HCO3-Line Draw 28 24 - 28 mmol/L 03/24/2022 11:42 PM EDT [facility] CO2 Content-Line Draw 29 25 - 29 mmol/L 03/24/2022 11:42 PM EDT [facility] Base Excess-Line Draw 2.5 -2.0 - 3.0 mmol/L 03/24/2022 11:42 PM EDT [facility] %HBO2-Line Draw 83.1(H) 40.0 - 70.0 % 03/24/2022 11:42 PM EDT [facility] Carboxyhgb-Nemo e Draw 1.9 % 03/24/2022 11:42 PM EDT [facility] Comment: CARBOXYHEMOGLOBIN (CO) REFERENCE RANGES: Non-Smokers: ??<2 % ? Smokers: ??<8 % TOXIC: >20 % Methemoglobin- Line Draw 0.6 0.0 - 1.5 % 03/24/2022 11:42 PM EDT [facility] Reduced Hemoglobin-Nemo e Draw 14.4(H) 0.0 - 5.0 % 03/24/2022 11:42 PM EDT [facility] Venous, Line Draw 03/24/2022 11:34 PM EDT 03/24/2022 11:41 PM EDT us Ky Hills MD LAB BLOOD ORDERABLES Final Result Performing Organization Address City/[facility]/ZIP Co de Phone Number [facility] [address] [place] [address] * (ABNORMAL) POC Glucose Monitoring Device (03/24/2022 7:16 PM EDT) POC Glucose Monitoring Device 197(H) 70 - 100 mg/dL 03/24/2022 7:17 PM EDT [facility] Blood 03/24/2022 7:16 PM EDT 03/24/2022 7:17 PM EDT us Kelsey Carcamo MD POINT OF CARE TEST ORDERA BLES Final Result [facility] [address] [place] [address] * (ABNORMAL) POC Glucose Monitoring Device (03/24/2022 4:09 PM EDT) POC Glucose Monitoring Device 164(H) 70 - 100 mg/dL 03/24/2022 4:10 PM EDT [facility] Blood 03/24/2022 4:09 PM EDT 03/24/2022 4:09 PM EDT Kelsey Carcamo MD POINT OF CARE TEST ORDERA BLES Final Result Performing Organization Address City/[facility]/ZIP Co de Phone Number [facility] [address] [place] [address] * (ABNORMAL) POC Glucose Monitoring Device (03/24/2022 12:07 PM EDT) POC Glucose Monitoring Device 106(H) 70 - 100 mg/dL 03/24/2022 12:08 PM EDT [facility] Blood 03/24/2022 12:0 7 PM EDT 03/24/2022 12:08 PM EDT Kelsey Carcamo MD POINT OF CARE TEST ORDERA BLES Final Result Performing Organization Address [facility]/ZIP Co de Phone Number [facility] [address] [place] [address] * (ABNORMAL) POC Glucose Monitoring Device (03/24/2022 9:58 AM EDT) POC Glucose Monitoring Device 105(H) 70 - 100 mg/dL 03/24/2022 9:59 AM EDT [facility] Blood 03/24/2022 9:58 AM EDT 03/24/2022 9:59 AM EDT Kelsey Carcamo MD POINT OF CARE TEST ORDERA BLES Final Result Performing Organization Address City/[facility]/ZIP Co de Phone Number [facility] [address] [place] [address] * (ABNORMAL) Renal Function Panel w/EGFR (03/24/2022 7:39 AM EDT) Sodium 130(L) 133 - 146 mmol/L 03/24/2022 8:32 AM EDT [facility] Potassium 4.9 3.5 - 5.3 mmol/L 03/24/2022 8:32 AM EDT [facility] Chloride 94(L) 98 - 110 mmol/L 03/24/2022 8:32 AM EDT [facility] CO2 24 21 - 33 mmol/L 03/24/2022 8:32 AM EDT [facility] Anion Gap 12 3 - 16 mmol/L 03/24/2022 8:32 AM EDT [facility] BUN 40(H) 7 - 25 mg/dL 03/24/2022 8:32 AM EDT [facility] Creatinine 6.97(H) 0.60 - 1.30 mg/dL 03/24/2022 8:32 AM EDT [facility] Glucose 101(H) 70 - 100 mg/dL 03/24/2022 8:32 AM EDT [facility] Calcium 8.0(L) 8.6 - 10.3 mg/dL 03/24/2022 8:32 AM EDT [facility] Phosphorus 3.9 2.1 - 4.7 mg/dL 03/24/2022 8:32 AM EDT [facility] Albumin 4.1 3.5 - 5.7 g/dL 03/24/2022 8:32 AM EDT [facility] Osmolality, Calculated 280 278 - 305 mOsm/kg 03/24/2022 8:32 AM EDT [facility] EGFR 9 03/24/2022 8:32 AM EDT [facility] Comment:As of 2021, the [...] MD LAB BLOOD ORDERABLES Final Resu lt [facility] [address] [place] [address], [facility] * (ABNORMAL) CBC (03/24/2022 7:39 AM EDT) WBC 2.8(L) 3.8 - 10.8 10E3/uL 03/24/2022 8:37 AM EDT [facility] Comment:WBCs are consistent with smear. RBC 2.49(L) 4.20 - 5.80 10E6/uL 03/24/2022 8:37 AM EDT [facility] Hemoglobin 8.4(L) 13.2 - 17.1 g/dL 03/24/2022 8:37 AM EDT [facility] Hematocrit 24.6(L) 38.5 - 50.0 % 03/24/2022 8:37 AM EDT [facility] MCV 99.0 80.0 - 100.0 fL 03/24/2022 8:37 AM EDT [facility] MCH 34.0(H) 27.0 - 33.0 pg 03/24/2022 8:37 AM EDT [facility] MCHC 34.3 32.0 - 36.0 g/dL 03/24/2022 8:37 AM EDT [facility] RDW 14.0 11.0 - 15.0 % 03/24/2022 8:37 AM EDT [facility] Platelets 160 140 - 400 10E3/uL 03/24/2022 8:37 AM EDT [facility] Comment:Specimen checked for clots. None detected. MPV 7.3(L) 7.5 - 11.5 fL 03/24/2022 8:37 AM EDT [facility] Whole Blood 03/24/2022 7:39 AM EDT 03/24/2022 8:00 AM EDT us Laura Gonzalez MD LAB BLOOD ORDERABLES Final Resu lt [facility] [address] [place] [address] * Magnesium (03/24/2022 7:39 AM EDT) Magnesium 1.9 1.5 - 2.5 mg/dL 03/24/2022 8:32 AM EDT [facility] Plasma 03/24/2022 7:39 AM EDT 03/24/2022 8:00 AM EDT Laura Gonzalez MD LAB BLOOD ORDERABLES Final Resu lt [facility] [address] [place] [address] * Vitamin B12 (03/24/2022 7:39 AM EDT) Vitamin B-12 325 180 - 914 pg/mL 03/24/2022 8:52 AM EDT [facility] Serum 03/24/2022 7:39 AM EDT 03/24/2022 8:00 AM EDT Claudia Landon PharmD LAB BLOOD ORDERABLES Yoselin l Result Performing Organization Address [facility]/ZIP Co de Phone Number [facility] [address] [place] [address] * Folate (Folic Acid) (03/24/2022 7:39 AM EDT) Folic Acid 15.40 5.90 - 24.80 ng/mL 03/24/2022 8:50 AM EDT [facility] Serum 03/24/2022 7:39 AM EDT 03/24/2022 8:00 AM EDT Claudia Landon PharmD LAB BLOOD ORDERABLES Yoselin l Result [facility] [address] [place] [address] * RACHAEL RHYTHM STRIP - SCAN (03/23/2022 11:05 PM EDT) Scanning Uchhim SCAN DOCS - NO RESULTS Final Res ult * (ABNORMAL) POC Glucose Monitoring Device (03/23/2022 9:14 PM EDT) POC Glucose Monitoring Device 175(H) 70 - 100 mg/dL 03/23/2022 9:15 PM EDT [facility] Blood 03/23/2022 9:14 PM EDT 03/23/2022 9:15 PM EDT Kelsey Carcamo MD POINT OF CARE TEST ORDERA BLES Final Result Performing Organization Address City/[facility]/ZIP Co de Phone Number [facility] [address] [place] [address] * (ABNORMAL) POC Glucose Monitoring Device (03/23/2022 5:23 PM EDT) POC Glucose Monitoring Device 122(H) 70 - 100 mg/dL 03/23/2022 5:24 PM EDT [facility] Blood 03/23/2022 5:23 PM EDT 03/23/2022 5:23 PM EDT Kelsey Carcamo MD POINT OF CARE TEST ORDERA BLES Final Result Performing Organization Address [facility]/ZIP Co de Phone Number [facility] [address] [place] [address] * (ABNORMAL) POC Glucose Monitoring Device (03/23/2022 12:15 PM EDT) POC Glucose Monitoring Device 161(H) 70 - 100 mg/dL 03/23/2022 12:26 PM EDT [facility] Blood 03/23/2022 12:1 5 PM EDT 03/23/2022 12:26 PM EDT Kelsey Carcamo MD POINT OF CARE TEST ORDERA BLES Final Result Performing Organization Address City/[facility]/ZIP Co de Phone Number [facility] [address] [place] [id number] [place] [address] * Endoscopy, colon, diagnostic (03/23/2022 9:13 AM EDT) 03/23/2022 9:13 AM EDT Narrative [facility] - 03/23/2022 9:51 AM EDT [id number] Procedure Date: 03/23/2022 9:13 AM ? Patient Name: Leoncio Rollins ? Date of : 1975 ?Admit Type: Inpatient Age: 47 ? Gender: Male Note Status: Finalized ?Attending MD: Roxann Moore , Procedure: ? Colonoscopy Indications: ? Hematochezia Patient Profile: ? 47yo male with history of ESRD, OLT in 2018 here for ? hematochezia however transferred to [facility] for volume ? overload requiring hemodynamic monitoring. [...] verified by the physician, the nurse, the block chopper hand ? and the diagnostic technician in the procedure room. Mental ? [...] Procedure Code(s): ? --- Professional --- ? 94645, GC, Colonoscopy, flexible; diagnostic, ? including collection of specimen(s) by brushing or ? washing, when performed (separate procedure) Diagnosis Code(s): ? --- Professional --- ? K64.8, Other hemorrhoids ? K92.1, Melena (includes Hematochezia) CPT copyright 2020 [employer]. All rights reserved. The codes documented in this report are preliminary and upon ham facer review may be revised to meet current compliance requirements. ROXANN MOORE Roxann Moore, 03/23/2022 9:51:42 AM Husam Wilmer Hoyos, 03/23/2022 9:50:30 AM Scope Withdrawal Time 0 hours 8 minutes 24 seconds Total Procedure Duration Time 0 hours 15 minutes 38 seconds Scope In: 9:18:06 AM Scope Out: 9:33:44 AM ? [address] [place], [place] [address] us Provider Not In System GI PROCEDURE ORDERABLES F inal Result [facility] [address] [place] [address] * UPPER GI ENDOSCOPY (03/23/2022 9:04 AM EDT) 03/23/2022 9:04 AM EDT Narrative [facility] - 03/23/2022 9:49 AM EDT [id number] Procedure Date: 03/23/2022 9:04 AM ? Patient [...] verified by the physician, the nurse, the block chopper hand ? and the diagnostic technician in the procedure room. Mental ? [...] Procedure Code(s): ? --- Professional --- ? 91275, Esophagogastroduodenoscopy, flexible, ? transoral; with biopsy, single or multiple Diagnosis Code(s): ? --- Professional --- ? K44.9, Diaphragmatic hernia without obstruction or ? gangrene ? K25.9, Gastric ulcer, unspecified as acute or chronic, ? without hemorrhage or perforation ? K31.89, Other diseases of stomach and duodenum ? R10.13, Epigastric pain CPT copyright 2020 [employer]. All rights reserved. The codes documented in this report are preliminary and upon ham facer review may be revised to meet current compliance requirements. ROXANN MOORE Roxann Moore, 03/23/2022 9:49:40 AM Husam Wilmer Hoyos, 03/23/2022 9:45:30 AM Total Procedure Duration Time 0 hours 7 minutes 26 seconds Scope In: 9:03:43 AM Scope Out: 9:11:09 AM ? [address] [place] [id number] us Provider Not In System PROCEDURE/MINOR SURGICAL ORDERABLES Final Result [facility] [address] [facility] [place] [address] * (ABNORMAL) POC Glucose Monitoring Device (03/23/2022 8:29 AM EDT) POC Glucose Monitoring Device 101(H) 70 - 100 mg/dL 03/23/2022 8:29 AM EDT [facility] Blood 03/23/2022 8:29 AM EDT 03/23/2022 8:29 AM EDT us Kelsey Carcamo MD POINT OF CARE TEST ORDERA BLES Final Result Performing Organization Address [facility]/ZIP Co de Phone Number [facility] [address] * RACHAEL RHYTHM STRIP - SCAN (03/23/2022 7:15 AM EDT) us Scanning Uchhim SCAN DOCS - NO RESULTS Final Res ult * Magnesium, AM (03/23/2022 5:55 AM EDT) Magnesium 1.9 1.5 - 2.5 mg/dL 03/23/2022 7:03 AM EDT [facility] Plasma 03/23/2022 5:55 AM EDT 03/23/2022 6:26 AM EDT us Chito Santizo MD LAB BLOOD ORDERABLES Final Res ult Performing Organization Address [facility] Co de Phone Number [facility] [address] * (ABNORMAL) Renal Function Panel w/EGFR (03/23/2022 5:55 AM EDT) Sodium 133 133 - 146 mmol/L 03/23/2022 7:03 AM EDT [facility] Potassium 4.8 3.5 - 5.3 mmol/L 03/23/2022 7:03 AM EDT [facility] Chloride 97(L) 98 - 110 mmol/L 03/23/2022 7:03 AM EDT [facility] CO2 25 21 - 33 mmol/L 03/23/2022 7:03 AM EDT [facility] Anion Gap 11 3 - 16 mmol/L 03/23/2022 7:03 AM EDT [facility] BUN 28(H) 7 - 25 mg/dL 03/23/2022 7:03 AM EDT [facility] Creatinine 5.65(H) 0.60 - 1.30 mg/dL 03/23/2022 7:03 AM EDT [facility] Glucose 87 70 - 100 mg/dL 03/23/2022 7:03 AM EDT [facility] Calcium 8.4(L) 8.6 - 10.3 mg/dL 03/23/2022 7:03 AM EDT [facility] Phosphorus 3.6 2.1 - 4.7 mg/dL 03/23/2022 7:03 AM EDT [facility] Albumin 4.2 3.5 - 5.7 g/dL 03/23/2022 7:03 AM EDT [facility] Osmolality, Calculated 281 278 - 305 mOsm/kg 03/23/2022 7:03 AM EDT [facility] EGFR 12 03/23/2022 7:03 AM EDT [facility] Comment:As of 2021, the [...] MD LAB BLOOD ORDERABLES Final Res ult [facility] [address] [id number], [facility] * (ABNORMAL) CBC, AM (03/23/2022 5:55 AM EDT) WBC 3.1(L) 3.8 - 10.8 10E3/uL 03/23/2022 6:35 AM EDT [facility] RBC 2.68(L) 4.20 - 5.80 10E6/uL 03/23/2022 6:35 AM EDT [facility] Hemoglobin 9.0(L) 13.2 - 17.1 g/dL 03/23/2022 6:35 AM EDT [facility] Hematocrit 26.8(L) 38.5 - 50.0 % 03/23/2022 6:35 AM EDT [facility] MCV 100.0 80.0 - 100.0 fL 03/23/2022 6:35 AM EDT [facility] MCH 33.6(H) 27.0 - 33.0 pg 03/23/2022 6:35 AM EDT [facility] MCHC 33.6 32.0 - 36.0 g/dL 03/23/2022 6:35 AM EDT [facility] RDW 14.1 11.0 - 15.0 % 03/23/2022 6:35 AM EDT [facility] Platelets 160 140 - 400 10E3/uL 03/23/2022 6:35 AM EDT [facility] MPV 7.4(L) 7.5 - 11.5 fL 03/23/2022 6:35 AM EDT [facility] Whole Blood 03/23/2022 5:55 AM EDT 03/23/2022 6:26 AM EDT Chito Santizo MD LAB BLOOD ORDERABLES Final Res ult Performing Organization Address [facility]/State/[facility] Co de Phone Number [facility] [address] * RACHAEL RHYTHM STRIP - SCAN (03/23/2022 1:53 AM EDT) us Scanning [employer] SCAN DOCS - NO RESULTS Final Res ult * (ABNORMAL) POC Glucose Monitoring Device (03/23/2022 12:03 AM EDT) [facility] POC Glucose Monitoring Device 161(H) 70 - 100 mg/dL 03/23/2022 12:14 AM EDT [facility] Blood 03/23/2022 12:0 3 AM EDT 03/23/2022 12:13 AM EDT us Kelsey Carcamo MD POINT OF CARE TEST ORDERA BLES Final Result [facility] [address] [place] [address], [facility] * Surgical Pathology Exam (03/23/2022 12:00 AM EDT) 03/23/2022 03/23/2022 Narrative [facility] - 03/23/2022 12:00 AM EDT CASE: [id number] PATIENT: LEONCIO ROLLINS Clinical History: ?? egd with biopsy Pre-Operative Diagnosis: anemia, unspecified type Post-Operative Diagnosis: ? gastritis, hiatal hernia, gastric ulcers, internal hemorrhoids Specimen(s) Submitted: ?? A. gastric bx r/o hp, cmv, hsv CPT Code(s): ?? 10368 X 1; 31406 X 2; 72824 X 1 Additional Information: FINAL DIAGNOSIS: Stomach, [...] biopsy bag and entirely submitted in cassette [facility]-[id number] A1. ??(NAVNEET Gotti/faye) Microscopic Description: Two HE and three immunostain (H. pylori, CMV and HSV) slides examined. Kenia I, the attending pathologist, have personally reviewed all prosector/resident work and pathology slides to determine final diagnosis. Some tests use analyte-specific reagents (ASRs). These tests were developed and their performance characteristics determined by [facility]. They have not been [...] developed and their performance characteristics determined by [facility] Pathology. They have not been cleared or [...] Pathologist signing this report is located at [facility], [address] [place] [address], Critical access hospital, , CLIA ID: [id number] Roxann Moore MD PATHOLOGY/CYTOLOGY ORDERABLES Final Result Performing Organization Address [facility] Co de Phone Number [facility] * (ABNORMAL) POC Glucose Monitoring Device (03/22/2022 5:37 PM EDT) POC Glucose Monitoring Device 174(H) 70 - 100 mg/dL 03/22/2022 5:38 PM EDT [facility] Blood 03/22/2022 5:37 PM EDT 03/22/2022 5:38 PM EDT Kelsey Carcamo MD POINT OF CARE TEST ORDERA BLES Final Result Performing Organization Address [facility]/ZIP Co de Phone Number [facility] [address] [place] [address] * Magnesium (03/22/2022 2:51 PM EDT) Magnesium 1.8 1.5 - 2.5 mg/dL 03/22/2022 3:55 PM EDT [facility] Plasma 03/22/2022 2:51 PM EDT 03/22/2022 3:10 PM EDT us Chito Santizo MD LAB BLOOD ORDERABLES Final Res ult [facility] [address] * (ABNORMAL) Renal Function Panel w/EGFR (03/22/2022 2:51 PM EDT) Sodium 135 133 - 146 mmol/L 03/22/2022 3:55 PM EDT [facility] Potassium 4.4 3.5 - 5.3 mmol/L 03/22/2022 3:55 PM EDT [facility] Chloride 98 98 - 110 mmol/L 03/22/2022 3:55 PM EDT [facility] CO2 28 21 - 33 mmol/L 03/22/2022 3:55 PM EDT [facility] Anion Gap 9 3 - 16 mmol/L 03/22/2022 3:55 PM EDT [facility] BUN 21 7 - 25 mg/dL 03/22/2022 3:55 PM EDT [facility] Creatinine 4.36(H) 0.60 - 1.30 mg/dL 03/22/2022 3:55 PM EDT [facility] Glucose 191(H) 70 - 100 mg/dL 03/22/2022 3:55 PM EDT [facility] Calcium 8.7 8.6 - 10.3 mg/dL 03/22/2022 3:55 PM EDT [facility] Phosphorus 2.5 2.1 - 4.7 mg/dL 03/22/2022 3:55 PM EDT [facility] Albumin 4.1 3.5 - 5.7 g/dL 03/22/2022 3:55 PM EDT [facility] Osmolality, Calculated 288 278 - 305 mOsm/kg 03/22/2022 3:55 PM EDT [facility] EGFR 16 03/22/2022 3:55 PM EDT [facility] Comment:As of 2021, the [...] Final Res ult Performing Organization Address City/[facility]/ZIP Co de Phone Number [facility] [address] [place] [address] * (ABNORMAL) POC Glucose Monitoring Device (03/22/2022 1:20 PM EDT) POC Glucose Monitoring Device 155(H) 70 - 100 mg/dL 03/22/2022 1:31 PM EDT [facility] Blood 03/22/2022 1:20 PM EDT 03/22/2022 1:31 PM EDT Kelsey Carcamo MD POINT OF CARE TEST ORDERA BLES Final Result Performing Organization Address [facility]/ZIP Co de Phone Number [facility] [address] [place] [address] * (ABNORMAL) POC Glucose Monitoring Device (03/22/2022 7:51 AM EDT) POC Glucose Monitoring Device 138(H) 70 - 100 mg/dL 03/22/2022 7:53 AM EDT [facility] Blood 03/22/2022 7:51 AM EDT 03/22/2022 7:53 AM EDT us Kelsey Carcamo MD POINT OF CARE TEST ORDERA BLES Final Result [facility] [address] [place] [address], [facility] * (ABNORMAL) Renal Function Panel w/EGFR (03/22/2022 6:22 AM EDT) Sodium 133 133 - 146 mmol/L 03/22/2022 7:43 AM EDT [facility] Potassium 5.8(H) 3.5 - 5.3 mmol/L 03/22/2022 7:43 AM EDT [facility] Comment:Hemolysis Present: R esults may be influenced artificially. Recommend recollection as clinically indicated. Chloride 98 98 - 110 mmol/L 03/22/2022 7:43 AM EDT [facility] CO2 25 21 - 33 mmol/L 03/22/2022 7:43 AM EDT [facility] Anion Gap 10 3 - 16 mmol/L 03/22/2022 7:43 AM EDT [facility] BUN 37(H) 7 - 25 mg/dL 03/22/2022 7:43 AM EDT [facility] Creatinine 6.58(H) 0.60 - 1.30 mg/dL 03/22/2022 7:43 AM EDT [facility] Glucose 123(H) 70 - 100 mg/dL 03/22/2022 7:43 AM EDT [facility] Calcium 8.4(L) 8.6 - 10.3 mg/dL 03/22/2022 7:43 AM EDT [facility] Phosphorus 3.7 2.1 - 4.7 mg/dL 03/22/2022 7:43 AM EDT [facility] Comment:HEMOLYSIS EVIDENT. R ESULTS MAY BE INFLUENCED. Albumin 3.9 3.5 - 5.7 g/dL 03/22/2022 7:43 AM EDT [facility] Osmolality, Calculated 286 278 - 305 mOsm/kg 03/22/2022 7:43 AM EDT [facility] EGFR 10 03/22/2022 7:43 AM EDT [facility] Comment:As of 2021, the [...] ORDERABLES Final Resul t Performing Organization Address City/[facility] Co de Phone Number [facility] [address] [place] [address] * Magnesium (03/22/2022 6:22 AM EDT) Magnesium 1.9 1.5 - 2.5 mg/dL 03/22/2022 7:43 AM EDT [facility] Comment:HEMOLYSIS EVIDENT. R ESULTS MAY BE INFLUENCED. Plasma 03/22/2022 6:22 AM EDT 03/22/2022 7:02 AM EDT Irina Craven MD LAB BLOOD ORDERABLES Final Resul t Performing Organization Address [facility] Co de Phone Number [facility] [address] [place] [address] * (ABNORMAL) CBC (03/22/2022 6:22 AM EDT) WBC 3.0(L) 3.8 - 10.8 10E3/uL 03/22/2022 7:11 AM EDT [facility] RBC 2.50(L) 4.20 - 5.80 10E6/uL 03/22/2022 7:11 AM EDT [facility] Hemoglobin 8.3(L) 13.2 - 17.1 g/dL 03/22/2022 7:11 AM EDT [facility] Hematocrit 25.3(L) 38.5 - 50.0 % 03/22/2022 7:11 AM EDT [facility] MCV 101.1(H) 80.0 - 100.0 fL 03/22/2022 7:11 AM EDT [facility] MCH 33.2(H) 27.0 - 33.0 pg 03/22/2022 7:11 AM EDT [facility] MCHC 32.8 32.0 - 36.0 g/dL 03/22/2022 7:11 AM EDT [facility] RDW 14.5 11.0 - 15.0 % 03/22/2022 7:11 AM EDT [facility] Platelets 161 140 - 400 10E3/uL 03/22/2022 7:11 AM EDT [facility] MPV 7.8 7.5 - 11.5 fL 03/22/2022 7:11 AM EDT [facility] Whole Blood 03/22/2022 6:22 AM EDT 03/22/2022 7:03 AM EDT us Irina Craven MD LAB BLOOD ORDERABLES Final Resul t [facility] [address] * (ABNORMAL) POC Glucose Monitoring Device (03/21/2022 4:47 PM EDT) POC Glucose Monitoring Device 151(H) 70 - 100 mg/dL 03/21/2022 4:48 PM EDT [facility] Blood 03/21/2022 4:47 PM EDT 03/21/2022 4:48 PM EDT us Kelsey Carcamo MD POINT OF CARE TEST ORDERA BLES Final Result [facility] [address] [place] [address], [facility] * (ABNORMAL) Basic Metabolic Panel (03/21/2022 12:19 PM EDT) Sodium 136 133 - 146 mmol/L 03/21/2022 1:11 PM EDT [facility] Potassium 4.6 3.5 - 5.3 mmol/L 03/21/2022 1:11 PM EDT [facility] Chloride 100 98 - 110 mmol/L 03/21/2022 1:11 PM EDT [facility] CO2 26 21 - 33 mmol/L 03/21/2022 1:11 PM EDT [facility] Anion Gap 10 3 - 16 mmol/L 03/21/2022 1:11 PM EDT [facility] BUN 25 7 - 25 mg/dL 03/21/2022 1:11 PM EDT [facility] Creatinine 5.05(H) 0.60 - 1.30 mg/dL 03/21/2022 1:11 PM EDT [facility] Glucose 153(H) 70 - 100 mg/dL 03/21/2022 1:11 PM EDT [facility] Calcium 8.9 8.6 - 10.3 mg/dL 03/21/2022 1:11 PM EDT [facility] Osmolality, Calculated 289 278 - 305 mOsm/kg 03/21/2022 1:11 PM EDT [facility] EGFR 13 03/21/2022 1:11 PM EDT [facility] Comment:As of 2021, the [...] Resu lt Performing Organization Address [facility] Co de Phone Number [facility] [address] * (ABNORMAL) Hemoglobin, Blood Gas (03/21/2022 11:53 AM EDT) Hgb, blood gas 9.1(L) 14.0 - 18.0 g/dL 03/21/2022 12:00 PM EDT [facility] Blood, Arterial 03/21/2022 1 1:53 AM EDT 03/21/2022 11:58 AM EDT Ana Mercado MD LAB BLOOD ORDERABLES Final Resu lt Performing Organization Address [facility] Co de Phone Number [facility] [address] [place] [address] * (ABNORMAL) VENOUS O2 SAT, MEASURED (03/21/2022 11:53 AM EDT) %HBO2, Venous 67.1 40.0 - 70.0 % 03/21/2022 12:00 PM EDT [facility] Carboxyhemoglo bin, Venous 1.9 0.0 - 2.0 % 03/21/2022 12:00 PM EDT [facility] Comment: CARBOXYHEMOGLOBIN (CO) REFERENCE RANGES: Non-Smokers: ??<2 % ? Smokers: ??<8 % TOXIC: >20 % Methemoglobin, Venous 0.9 0.0 - 1.5 % 03/21/2022 12:00 PM EDT [facility] Reduced hemoglobin, Venous 30.1(H) 0.0 - 5.0 % 03/21/2022 12:00 PM EDT [facility] Blood, Venous 03/21/2022 11: 53 AM EDT 03/21/2022 11:58 AM EDT Ana Mercado MD LAB BLOOD ORDERABLES Final Resu lt Performing Organization Address [facility] Co de Phone Number [address] * (ABNORMAL) POC Glucose Monitoring Device (03/21/2022 11:46 AM EDT) POC Glucose Monitoring Device 169(H) 70 - 100 mg/dL 03/21/2022 11:47 AM EDT [facility] Blood 03/21/2022 11:4 6 AM EDT 03/21/2022 11:47 AM EDT Kelsey Carcamo MD POINT OF CARE TEST ORDERA BLES Final Result Performing Organization Address [facility] de Phone Number [address] * (ABNORMAL) POC Glucose Monitoring Device (03/21/2022 8:39 AM EDT) POC Glucose Monitoring Device 159(H) 70 - 100 mg/dL 03/21/2022 8:40 AM EDT [facility] Blood 03/21/2022 8:39 AM EDT 03/21/2022 8:39 AM EDT Kelsey Carcamo MD POINT OF CARE TEST ORDERA BLES Final Result Performing Organization Address [facility] Co de Phone Number [facility] [address] [place] [address] * Magnesium (03/21/2022 5:12 AM EDT) Magnesium 1.9 1.5 - 2.5 mg/dL 03/21/2022 5:53 AM EDT [facility] Plasma 03/21/2022 5:12 AM EDT 03/21/2022 5:21 AM EDT Dariela Wood MD LAB BLOOD ORDERABLES Final Resu lt Performing Organization Address City/[facility]/ZIP Co de Phone Number [facility] [address] * (ABNORMAL) CBC (03/21/2022 5:12 AM EDT) Pathologist [facility] WBC 3.2(L) 3.8 - 10.8 10E3/uL 03/21/2022 5:31 AM EDT [facility] RBC 2.51(L) 4.20 - 5.80 10E6/uL 03/21/2022 5:31 AM EDT [facility] Hemoglobin 8.5(L) 13.2 - 17.1 g/dL 03/21/2022 5:31 AM EDT [facility] Hematocrit 25.5(L) 38.5 - 50.0 % 03/21/2022 5:31 AM EDT [facility] MCV 101.4(H) 80.0 - 100.0 fL 03/21/2022 5:31 AM EDT [facility] MCH 33.9(H) 27.0 - 33.0 pg 03/21/2022 5:31 AM EDT [facility] MCHC 33.4 32.0 - 36.0 g/dL 03/21/2022 5:31 AM EDT [facility] RDW 14.3 11.0 - 15.0 % 03/21/2022 5:31 AM EDT [facility] Platelets 161 140 - 400 10E3/uL 03/21/2022 5:31 AM EDT [facility] MPV 7.1(L) 7.5 - 11.5 fL 03/21/2022 5:31 AM EDT [facility] Whole Blood 03/21/2022 5:12 AM EDT 03/21/2022 5:21 AM EDT Dariela Wood MD LAB BLOOD ORDERABLES Final Resu lt [facility] [address] * (ABNORMAL) Renal Function Panel w/EGFR (03/21/2022 5:12 AM EDT) Sodium 134 133 - 146 mmol/L 03/21/2022 5:53 AM EDT [facility] Potassium 5.5(H) 3.5 - 5.3 mmol/L 03/21/2022 5:53 AM EDT [facility] Chloride 100 98 - 110 mmol/L 03/21/2022 5:53 AM EDT [facility] CO2 23 21 - 33 mmol/L 03/21/2022 5:53 AM EDT [facility] Anion Gap 11 3 - 16 mmol/L 03/21/2022 5:53 AM EDT [facility] BUN 45(H) 7 - 25 mg/dL 03/21/2022 5:53 AM EDT [facility] Creatinine 8.16(H) 0.60 - 1.30 mg/dL 03/21/2022 5:53 AM EDT [facility] Glucose 108(H) 70 - 100 mg/dL 03/21/2022 5:53 AM EDT [facility] Calcium 8.5(L) 8.6 - 10.3 mg/dL 03/21/2022 5:53 AM EDT [facility] Phosphorus 5.3(H) 2.1 - 4.7 mg/dL 03/21/2022 5:53 AM EDT [facility] Albumin 4.0 3.5 - 5.7 g/dL 03/21/2022 5:53 AM EDT [facility] Osmolality, Calculated 290 278 - 305 mOsm/kg 03/21/2022 5:53 AM EDT [facility] EGFR 7 03/21/2022 5:53 AM EDT [facility] Comment:As of 2021, the [...] Resu lt Performing Organization Address [facility]/ZIP Co de Phone Number [facility] [address] * (ABNORMAL) Hemoglobin, Blood Gas (03/20/2022 9:59 PM EDT) Hgb, blood gas 9.0(L) 14.0 - 18.0 g/dL 03/20/2022 10:08 PM EDT [facility] Blood, Arterial 03/20/2022 9 :59 PM EDT 03/20/2022 10:07 PM EDT Result [facility] Ana Mercado MD LAB BLOOD ORDERABLES Final Resu lt Performing Organization Address [facility]/ZIP Co de Phone Number [facility] [address] [place] [address] * (ABNORMAL) Venous O2 SAT, Measured (03/20/2022 9:59 PM EDT) %HBO2, Venous 59.3 40.0 - 70.0 % 03/20/2022 10:08 PM EDT [facility] Carboxyhemoglo bin, Venous 1.7 0.0 - 2.0 % 03/20/2022 10:08 PM EDT [facility] Comment: CARBOXYHEMOGLOBIN (CO) REFERENCE RANGES: Non-Smokers: ??<2 % ? Smokers: ??<8 % TOXIC: >20 % Methemoglobin, Venous 0.7 0.0 - 1.5 % 03/20/2022 10:08 PM EDT [facility] Reduced hemoglobin, Venous 38.3(H) 0.0 - 5.0 % 03/20/2022 10:08 PM EDT [facility] Blood, Venous 03/20/2022 9:5 9 PM EDT 03/20/2022 10:06 PM EDT Result [facility] Ana Mercado MD LAB BLOOD ORDERABLES Final Resu lt Performing Organization Address City/[facility]/ZIP Co de Phone Number [facility] [address] * RACHAEL RHYTHM STRIP - SCAN (03/20/2022 6:29 PM EDT) us Scanning Uchhim SCAN DOCS - NO RESULTS Final Res ult * (ABNORMAL) Hemoglobin, Blood Gas (03/20/2022 5:28 PM EDT) Hgb, blood gas 9.1(L) 14.0 - 18.0 g/dL 03/20/2022 5:32 PM EDT [facility] Blood, Venous 03/20/2022 5:2 8 PM EDT 03/20/2022 5:31 PM EDT Result [facility] Ana Mercado MD LAB BLOOD ORDERABLES Final Resu lt Performing Organization Address City/[facility]/ZIP Co de Phone Number [facility] [address] * (ABNORMAL) Venous O2 SAT, Measured (03/20/2022 5:28 PM EDT) %HBO2, Venous 62.9 40.0 - 70.0 % 03/20/2022 5:32 PM EDT [facility] Carboxyhemoglo bin, Venous 1.5 0.0 - 2.0 % 03/20/2022 5:32 PM EDT [facility] Comment: CARBOXYHEMOGLOBIN (CO) REFERENCE RANGES: Non-Smokers: ??<2 % ? Smokers: ??<8 % TOXIC: >20 % Methemoglobin, Venous 1.1 0.0 - 1.5 % 03/20/2022 5:32 PM EDT [facility] Reduced hemoglobin, Venous 34.5(H) 0.0 - 5.0 % 03/20/2022 5:32 PM EDT [facility] Blood, Venous 03/20/2022 5:2 8 PM EDT 03/20/2022 5:31 PM EDT Ana Mercado MD LAB BLOOD ORDERABLES Final Resu lt Performing Organization Address [facility] Co de Phone Number [facility] [address] [place] [address] * (ABNORMAL) POC Glucose Monitoring Device (03/20/2022 5:21 PM EDT) POC Glucose Monitoring Device 124(H) 70 - 100 mg/dL 03/20/2022 5:22 PM EDT [facility] Blood 03/20/2022 5:21 PM EDT 03/20/2022 5:22 PM EDT Kelsey Carcamo MD POINT OF CARE TEST ORDERA BLES Final Result Performing Organization Address [facility] Co de Phone Number [facility] [address] [place] [address] * (ABNORMAL) POC Glucose Monitoring Device (03/20/2022 11:37 AM EDT) POC Glucose Monitoring Device 165(H) 70 - 100 mg/dL 03/20/2022 11:38 AM EDT [facility] Blood 03/20/2022 11:3 7 AM EDT 03/20/2022 11:38 AM EDT Kelsey Carcamo MD POINT OF CARE TEST ORDERA BLES Final Result Performing Organization Address [facility] de Phone Number [facility] [address] [place] [address] * (ABNORMAL) Cyclosporine level (03/20/2022 9:28 AM EDT) Cyclosporine, LC/MS 42.2(L) 100.0 - 350.0 ng/mL 03/20/2022 2:47 PM EDT [facility] Comment:Performed via liquid chromatography tandem mass spectrometry. Detection limit: 20 ng/mL. Individual target concentrations may vary due to target organ and time after transplant. This test has been developed and its performance characteristics determined by [facility] which is certified under the [...] Resu lt Performing Organization Address [facility] Co de Phone Number [address] * (ABNORMAL) POC Glucose Monitoring Device (03/20/2022 7:43 AM EDT) [facility] POC Glucose Monitoring Device 132(H) 70 - 100 mg/dL 03/20/2022 7:44 AM EDT [facility] Blood 03/20/2022 7:43 AM EDT 03/20/2022 7:44 AM EDT Kelsey Carcamo MD POINT OF CARE TEST ORDERA BLES Final Result Performing Organization Address [facility] Co de Phone Number [facility] [address] [place] [address] * X-ray Portable Chest (03/20/2022 7:05 AM [...] AM EDT EXAM: XR PORTABLE CHEST INDICATION: Milan-Viviana catheter placement TECHNIQUE: 1 view of the [...] - 03/20/2022 EXAM: XR PORTABLE CHEST INDICATION: Milan-Viviana catheter placement TECHNIQUE: 1 view of the [...] - 70.0 % 03/20/2022 4:17 AM EDT [facility] Carboxyhemoglo bin, Venous 1.8 % 03/20/2022 4:17 AM EDT [facility] Comment: CARBOXYHEMOGLOBIN (CO) REFERENCE RANGES: Non-Smokers: ??<2 % ? Smokers: ??<8 % TOXIC: >20 % Methemoglobin, Venous 0.8 0.0 - 1.5 % 03/20/2022 4:17 AM EDT [facility] Reduced hemoglobin, Venous 24.2(H) 0.0 - 5.0 % 03/20/2022 4:17 AM EDT [facility] Blood, Venous 03/20/2022 3:5 8 AM EDT 03/20/2022 4:14 AM EDT Ana Mercado MD LAB BLOOD ORDERABLES Final Resu lt Performing Organization Address City/[facility]/ZIP Co de Phone Number [facility] [address] [place] [address] * (ABNORMAL) Hemoglobin, Blood Gas (03/20/2022 3:58 AM EDT) Hgb, blood gas 8.9(L) 14.0 - 18.0 g/dL 03/20/2022 4:17 AM EDT [facility] Blood, Arterial 03/20/2022 3 :58 AM EDT 03/20/2022 4:14 AM EDT Ana Mercado MD LAB BLOOD ORDERABLES Final Resu lt Performing Organization Address [facility] Co de Phone Number [facility] [address] [place] [address] * Magnesium (03/20/2022 3:58 AM EDT) Magnesium 2.0 1.5 - 2.5 mg/dL 03/20/2022 4:41 AM EDT [facility] Plasma 03/20/2022 3:58 AM EDT 03/20/2022 4:14 AM EDT Dariela Wood MD LAB BLOOD ORDERABLES Final Resu lt Performing Organization Address [facility] Co de Phone Number [facility] [address] [place] [address] * (ABNORMAL) CBC (03/20/2022 3:58 AM EDT) WBC 3.4(L) 3.8 - 10.8 10E3/uL 03/20/2022 4:23 AM EDT [facility] RBC 2.52(L) 4.20 - 5.80 10E6/uL 03/20/2022 4:23 AM EDT [facility] Hemoglobin 8.8(L) 13.2 - 17.1 g/dL 03/20/2022 4:23 AM EDT [facility] Hematocrit 25.8(L) 38.5 - 50.0 % 03/20/2022 4:23 AM EDT [facility] MCV 102.2(H) 80.0 - 100.0 fL 03/20/2022 4:23 AM EDT [facility] MCH 34.8(H) 27.0 - 33.0 pg 03/20/2022 4:23 AM EDT [facility] MCHC 34.0 32.0 - 36.0 g/dL 03/20/2022 4:23 AM EDT [facility] RDW 14.3 11.0 - 15.0 % 03/20/2022 4:23 AM EDT [facility] Platelets 174 140 - 400 10E3/uL 03/20/2022 4:23 AM EDT [facility] MPV 6.8(L) 7.5 - 11.5 fL 03/20/2022 4:23 AM EDT [facility] Whole Blood 03/20/2022 3:58 AM EDT 03/20/2022 4:14 AM EDT us Dariela Wood MD LAB BLOOD ORDERABLES Final Resu lt Performing Organization Address City/State/[facility] Co de Phone Number [facility] [address] [place] [address] * (ABNORMAL) Renal Function Panel w/EGFR (03/20/2022 3:58 AM EDT) Sodium 138 133 - 146 mmol/L 03/20/2022 4:41 AM EDT [facility] Potassium 5.0 3.5 - 5.3 mmol/L 03/20/2022 4:41 AM EDT [facility] Chloride 102 98 - 110 mmol/L 03/20/2022 4:41 AM EDT [facility] CO2 28 21 - 33 mmol/L 03/20/2022 4:41 AM EDT [facility] Anion Gap 8 3 - 16 mmol/L 03/20/2022 4:41 AM EDT [facility] BUN 29(H) 7 - 25 mg/dL 03/20/2022 4:41 AM EDT [facility] Creatinine 6.56(H) 0.60 - 1.30 mg/dL 03/20/2022 4:41 AM EDT [facility] Glucose 129(H) 70 - 100 mg/dL 03/20/2022 4:41 AM EDT [facility] Calcium 8.4(L) 8.6 - 10.3 mg/dL 03/20/2022 4:41 AM EDT [facility] Phosphorus 5.1(H) 2.1 - 4.7 mg/dL 03/20/2022 4:41 AM EDT [facility] Albumin 4.1 3.5 - 5.7 g/dL 03/20/2022 4:41 AM EDT [facility] Osmolality, Calculated 294 278 - 305 mOsm/kg 03/20/2022 4:41 AM EDT [facility] EGFR 10 03/20/2022 4:41 AM EDT [facility] Comment:As of 2021, the [...] ORDERABLES Final Resu lt Performing Organization Address City/State/[facility] Co de Phone Number [facility] [address] * (ABNORMAL) POC Glucose Monitoring Device (03/19/2022 6:36 PM EDT) [employer] Signature POC Glucose Monitoring Device 158(H) 70 - 100 mg/dL 03/19/2022 6:40 PM EDT [facility] Blood 03/19/2022 6:36 PM EDT 03/19/2022 6:39 PM EDT us Kelsey Carcamo MD POINT OF CARE TEST ORDERA BLES Final Result Performing Organization Address [facility] Co de Phone Number [facility] [address] [place] [address] * (ABNORMAL) Hemoglobin, Blood Gas (03/19/2022 5:48 PM EDT) Hgb, blood gas 8.9(L) 14.0 - 18.0 g/dL 03/19/2022 5:56 PM EDT [facility] Blood, Venous 03/19/2022 5:4 8 PM EDT 03/19/2022 5:54 PM EDT us Ana Mercado MD LAB BLOOD ORDERABLES Final Resu lt Performing Organization Address [facility] de Phone Number [facility] [address] [place] [address] * (ABNORMAL) Venous O2 SAT, Measured (03/19/2022 5:48 PM EDT) %HBO2, Venous 73.9(H) 40.0 - 70.0 % 03/19/2022 5:55 PM EDT [facility] Carboxyhemoglo bin, Venous 1.8 % 03/19/2022 5:55 PM EDT [facility] Comment: CARBOXYHEMOGLOBIN (CO) REFERENCE RANGES: Non-Smokers: ??<2 % ? Smokers: ??<8 % TOXIC: >20 % Methemoglobin, Venous 0.6 0.0 - 1.5 % 03/19/2022 5:55 PM EDT [facility] Reduced hemoglobin, Venous 23.7(H) 0.0 - 5.0 % 03/19/2022 5:55 PM EDT [facility] Blood, Venous 03/19/2022 5:4 8 PM EDT 03/19/2022 5:54 PM EDT Ana Mercado MD LAB BLOOD ORDERABLES Final Resu lt Performing Organization Address [facility] Co de Phone Number [facility] [address] * (ABNORMAL) POC Glucose Monitoring Device (03/19/2022 11:50 AM EDT) [facility] POC Glucose Monitoring Device 137(H) 70 - 100 mg/dL 03/19/2022 11:53 AM EDT [facility] Blood 03/19/2022 11:5 0 AM EDT 03/19/2022 11:52 AM EDT Kelsey Carcamo MD POINT OF CARE TEST ORDERA BLES Final Result Performing Organization Address [facility] Co de Phone Number [facility] [address] [place] [address] * X-ray Portable Chest (03/19/2022 11:15 AM [...] Devices: Unchanged appearance of right IJ approach Milan-Viviana catheter. Heart and Mediastinum: Enlarged, but stable. [...] Devices: Unchanged appearance of right IJ approach Milan-Ganzcatheter. Heart and Mediastinum: Enlarged, but stable. Lungs [...] - 100 mg/dL 03/19/2022 8:12 AM EDT [facility] Blood 03/19/2022 8:02 AM EDT 03/19/2022 8:12 AM EDT us Kelsey Carcamo MD POINT OF CARE TEST ORDERA BLES Final Result [facility] [address] [place] [address], [facility] * X-ray Portable Chest (03/19/2022 6:26 AM EDT) Anatomical Region Laterality Modality Chest Radiographic Sobia ging 03/19/2022 6:21 AM EDT Impressions 03/19/2022 7:44 AM EDT IMPRESSION: 1. ??Milan-Viviana catheter tip in the left lower lobe [...] priors FINDINGS: Medical Devices: Right IJ approach Milan-Viviana catheter tip projects over the left lower [...] priors FINDINGS: Medical Devices: Right IJ approach Milan-Viviana catheter tip projects overthe left lower lobe pulmonary artery. Heart and Mediastinum: Unchanged cardiomegaly. Lungs and Pleura: Low lung volumes. Unchanged findings of interstitialpulmonary edema. No right pleural effusion. No visible pneumothorax. Bones and Soft tissues: Unchanged. IMPRESSION: 1. Milan-Viviana catheter tip in the left lower lobe [...] Culture Result No Growth After 5 Days [facility] Blood BLOOD SPECIMEN / Unknown 03/19/2022 5:30 AM EDT 03/19/2022 6:18 AM EDT Narrative [facility] - 03/24/2022 7:50 AM EDT Three different sites Suboptimal volume of blood received. Interpret results with caution. Interpret results critically. Specimen was collected in bottles Neyda Espinoza MD MICROBIOLOGY - GENERAL ORDERAB LES Final Result Performing Organization Address City/[facility] Co de Phone Number [facility] [address] [place] [address] * #2 Blood culture-Peripheral site 2 (03/19/2022 5:30 AM EDT) Culture Result No Growth After 5 Days [facility] Blood BLOOD SPECIMEN / Unknown 03/19/2022 5:30 AM EDT 03/19/2022 6:17 AM EDT Narrative [facility] - 03/24/2022 6:21 AM EDT Suboptimal volume of blood received. Interpret results with caution. Neyda Espinoza MD MICROBIOLOGY - GENERAL ORDERAB LES Final Result Performing Organization Address [facility] de Phone Number [facility] [address] [place] [address] * (ABNORMAL) Venous O2 SAT, Measured (03/19/2022 3:46 AM EDT) %HBO2, Venous 66.1 40.0 - 70.0 % 03/19/2022 3:57 AM EDT [facility] Carboxyhemoglo bin, Venous 1.9 0.0 - 2.0 % 03/19/2022 3:57 AM EDT [facility] Comment: CARBOXYHEMOGLOBIN (CO) REFERENCE RANGES: Non-Smokers: ??<2 % ? Smokers: ??<8 % TOXIC: >20 % Methemoglobin, Venous 0.7 0.0 - 1.5 % 03/19/2022 3:57 AM EDT [facility] Reduced hemoglobin, Venous 31.3(H) 0.0 - 5.0 % 03/19/2022 3:57 AM EDT [facility] Blood, Venous 03/19/2022 3:4 6 AM EDT 03/19/2022 3:55 AM EDT Ana Mercado MD LAB BLOOD ORDERABLES Final Resu lt Performing Organization Address City/[facility]/ZIP Co de Phone Number [facility] [address] * (ABNORMAL) Hemoglobin, Blood Gas (03/19/2022 3:46 AM EDT) Hgb, blood gas 8.3(L) 14.0 - 18.0 g/dL 03/19/2022 3:56 AM EDT [facility] Blood, Arterial 03/19/2022 3 :46 AM EDT 03/19/2022 3:55 AM EDT Result [facility] Ana Mercado MD LAB BLOOD ORDERABLES Final Resu lt Performing Organization Address [facility] Co de Phone Number [facility] [address] [place] [address] * Magnesium (03/19/2022 3:46 AM EDT) Magnesium 1.9 1.5 - 2.5 mg/dL 03/19/2022 4:23 AM EDT [facility] Plasma 03/19/2022 3:46 AM EDT 03/19/2022 3:52 AM EDT Dariela Wood MD LAB BLOOD ORDERABLES Final Resu lt Performing Organization Address City/[facility] Co de Phone Number [facility] [address] * (ABNORMAL) CBC (03/19/2022 3:46 AM EDT) WBC 3.2(L) 3.8 - 10.8 10E3/uL 03/19/2022 4:04 AM EDT [facility] RBC 2.44(L) 4.20 - 5.80 10E6/uL 03/19/2022 4:04 AM EDT [facility] Hemoglobin 8.2(L) 13.2 - 17.1 g/dL 03/19/2022 4:04 AM EDT [facility] Hematocrit 24.6(L) 38.5 - 50.0 % 03/19/2022 4:04 AM EDT [facility] MCV 100.8(H) 80.0 - 100.0 fL 03/19/2022 4:04 AM EDT [facility] MCH 33.6(H) 27.0 - 33.0 pg 03/19/2022 4:04 AM EDT [facility] MCHC 33.4 32.0 - 36.0 g/dL 03/19/2022 4:04 AM EDT [facility] RDW 14.1 11.0 - 15.0 % 03/19/2022 4:04 AM EDT [facility] Platelets 166 140 - 400 10E3/uL 03/19/2022 4:04 AM EDT [facility] MPV 7.0(L) 7.5 - 11.5 fL 03/19/2022 4:04 AM EDT [facility] Whole Blood 03/19/2022 3:46 AM EDT 03/19/2022 3:52 AM EDT us Dariela Wood MD LAB BLOOD ORDERABLES Final Resu lt [facility] [address] * (ABNORMAL) Renal Function Panel w/EGFR (03/19/2022 3:46 AM EDT) Sodium 135 133 - 146 mmol/L 03/19/2022 4:23 AM EDT [facility] Potassium 4.3 3.5 - 5.3 mmol/L 03/19/2022 4:23 AM EDT [facility] Chloride 96(L) 98 - 110 mmol/L 03/19/2022 4:23 AM EDT [facility] CO2 27 21 - 33 mmol/L 03/19/2022 4:23 AM EDT [facility] Anion Gap 12 3 - 16 mmol/L 03/19/2022 4:23 AM EDT [facility] BUN 37(H) 7 - 25 mg/dL 03/19/2022 4:23 AM EDT [facility] Creatinine 7.56(H) 0.60 - 1.30 mg/dL 03/19/2022 4:23 AM EDT [facility] Glucose 180(H) 70 - 100 mg/dL 03/19/2022 4:23 AM EDT [facility] Calcium 8.0(L) 8.6 - 10.3 mg/dL 03/19/2022 4:23 AM EDT [facility] Phosphorus 5.7(H) 2.1 - 4.7 mg/dL 03/19/2022 4:23 AM EDT [facility] Albumin 4.0 3.5 - 5.7 g/dL 03/19/2022 4:23 AM EDT [facility] Osmolality, Calculated 293 278 - 305 mOsm/kg 03/19/2022 4:23 AM EDT [facility] EGFR 8 03/19/2022 4:23 AM EDT [facility] Comment:As of 2021, the [...] MD LAB BLOOD ORDERABLES Final Resu lt [facility] [address] [place], [place] [address] * (ABNORMAL) Differential (03/19/2022 3:46 AM EDT) Neutrophils Relative 66.8 40.0 - 80.0 % 03/19/2022 4:04 AM EDT [facility] Lymphocytes Relative 21.1 15.0 - 45.0 % 03/19/2022 4:04 AM EDT [facility] Monocytes Relative 9.4 0.0 - 12.0 % 03/19/2022 4:04 AM EDT [facility] Eosinophils Relative 2.4 0.0 - 8.0 % 03/19/2022 4:04 AM EDT [facility] Basophils Relative 0.3 0.0 - 1.0 % 03/19/2022 4:04 AM EDT [facility] nRBC 0 0 - 0 /100 WBC 03/19/2022 4:04 AM EDT [facility] Neutrophils Absolute 2,138 1,500 - 7,800 /uL 03/19/2022 4:04 AM EDT [facility] Lymphocytes Absolute 675(L) 850 - 3,900 /uL 03/19/2022 4:04 AM EDT [facility] Monocytes Absolute 301 200 - 950 /uL 03/19/2022 4:04 AM EDT [facility] Eosinophils Absolute 77 15 - 500 /uL 03/19/2022 4:04 AM EDT [facility] Basophils Absolute 10 0 - 200 /uL 03/19/2022 4:04 AM EDT [facility] Whole Blood 03/19/2022 3:46 AM EDT 03/19/2022 3:52 AM EDT us Nadya Ramirez MD LAB BLOOD ORDERABLES Final Resul t [facility] [address] [place] [address], [facility] * Insert Arterial Line (03/18/2022 8:54 PM EDT) Narrative Ana Mercado MD - 03/18/2022 8:54 PM EDT Dariela Wood MD ? 03/18/2022 ??8:55 PM Insert Arterial Line Date/Time: 03/18/2022 8:54 PM Performed by: Dariela Wood MD Authorized by: Dariela Wood MD Consent: ??Consent obtained: ??Written ??Consent given by: ??Patient ??Risks, benefits, and alternatives were discussed: yes ?? [place] protocol: ??Patient identity confirmed: ??Verbally with patient [...] - 100 mg/dL 03/18/2022 7:24 PM EDT [facility] Blood 03/18/2022 7:24 PM EDT 03/18/2022 7:24 PM EDT Kelsey Carcamo MD POINT OF CARE TEST ORDERA BLES Final Result [facility] [address] * (ABNORMAL) POC Glucose Monitoring Device (03/18/2022 1:38 PM EDT) POC Glucose Monitoring Device 154(H) 70 - 100 mg/dL 03/18/2022 1:39 PM EDT [facility] Blood 03/18/2022 1:38 PM EDT 03/18/2022 1:39 PM EDT us Kelsey Carcamo MD POINT OF CARE TEST ORDERA BLES Final Result [address] [id number] * X-ray Portable Chest (03/18/2022 12:48 PM [...] Encounter for adjustment and management of VAD, ??Milan cath placement TECHNIQUE: 1 view of the [...] Encounter for adjustment and management of VAD, Milan cathplacement TECHNIQUE: 1 view of the chest. [...] Villagran MD at 03/18/2022 12:58 PM EDT us Sherly Hawkins MD IMG DIAGNOSTIC IMAGING ORDERABL ES Final Result * (ABNORMAL) Hemoglobin, Blood Gas (03/18/2022 9:32 AM EDT) Hgb, blood gas 8.9(L) 14.0 - 18.0 g/dL 03/18/2022 9:37 AM EDT [facility] Blood, Arterial 03/18/2022 9 :32 AM EDT 03/18/2022 9:36 AM EDT Result [facility] Ana Mercado MD LAB BLOOD ORDERABLES Final Resu lt Performing Organization Address [facility] Co de Phone Number [facility] [address] * (ABNORMAL) VENOUS O2 SAT, MEASURED (03/18/2022 9:32 AM EDT) %HBO2, Venous 63.4 40.0 - 70.0 % 03/18/2022 9:37 AM EDT [facility] Carboxyhemoglo bin, Venous 2.1(H) 0.0 - 2.0 % 03/18/2022 9:37 AM EDT [facility] Comment: CARBOXYHEMOGLOBIN (CO) REFERENCE RANGES: Non-Smokers: ??<2 % ? Smokers: ??<8 % TOXIC: >20 % Methemoglobin, Venous 0.9 0.0 - 1.5 % 03/18/2022 9:37 AM EDT [facility] Reduced hemoglobin, Venous 33.6(H) 0.0 - 5.0 % 03/18/2022 9:37 AM EDT [facility] Blood, Venous 03/18/2022 9:3 2 AM EDT 03/18/2022 9:36 AM EDT Result [facility] Ana Mercado MD LAB BLOOD ORDERABLES Final Resu lt Performing Organization Address City/[facility] Co de Phone Number [facility] [address] * RIGHT HEART CATH (03/18/2022 9:04 AM EDT) 03/18/2022 8:23 AM EDT Narrative [facility] - 03/19/2022 7:58 AM EDT *[facility]* Cardiac Director Of Assessing [address] [place], [place] [address] CATHETERIZATION LAB STUDY Patient: ? Leoncio Rollins [...] 3. Preserved cardiac index and output. 4. Milan Sutured in at 57cm. RECOMMENDATIONS: 1. Results discussed with cardiology consult team who recommended leave in [place] and further ?? optimization under the care [...] Right internal jugular vein access. A 4f Evergage mini access kit sheath was advanced into the ?? vessel. 5. Sheath exchange. The sheath was exchanged for a [id number] pinnacle sheath. 6. Right heart catheterization. A [...] ----- + !RV pressure s/d, ed ?! ?! ?! + + + ----- + !PA wedge a/v (m) ? ! (30) ? ! (30) ? ! + + + ----- + !MPA pressure s/d (m) ? !60/ (40) ? !60 (40) ? ! + + + ----- + !Aortic pressure s/d (m) ??! (122) ? ! (122) ? ! + + + ----- + !SVR ?!718dyn-sec/cm5 ? !768dyn-sec/cm5 ? ! + + + ----- + !SVRI ? !9728ljl-qpk-k^2/cm5 ?!3140qqs-eti-x^2/cm5 ?! + + + ----- + !PVR ?!74dyn-sec/cm5 ?!79dyn-sec/cm5 ?! + + + ----- + !PVRI ? !297bzm-quq-o^2/cm5 ? !851ykk-ynn-q^2/cm5 ? ! + + + ----- + !Total systemic resistance!903dyn-sec/cm5, 1149xnx-esm-u^2/cm5!966dyn-sec/cm5, 2863mdu-fnz-d^2/cm5! + + + ----- + Saturations: + [...] and electronically signed by Oliver Reed MD [id number] [place] [id number] Final Re sult [facility] Organization Address City/State/ZIP Co de Phone Number [facility] * CARDIAC CATH DOCUMENTS SCAN (03/18/2022 8:57 AM EDT) us Scanning [facility] SCAN DOCS - NO RESULTS Final Res ult * Occupational Exposure Screen Reflex (03/18/2022 8:51 AM EDT) HIV-1/HIV-2 Ab Negative Negative 03/18/2022 10:33 AM EDT [facility] Comment:Results called to an d read back by CHRISTOPHER LAMB RN P24 Antigen Negative Negative 03/18/2022 10:33 AM EDT [facility] Serum 03/18/2022 8:51 AM EDT 03/18/2022 9:50 AM EDT Ermelinda Caputo MD LAB BLOOD ORDERABLES Final Re sult Performing Organization Address City/[facility]/ZIP Co de Phone Number [facility] [address] * Hepatitis B surface antigen (03/18/2022 8:51 AM EDT) Hep B Surface Ag Nonreactive Nonreactive 03/18/2022 10:51 AM EDT [facility] Comment:Health Department no tified in accordance with reportable infectious disease guidelines. Serum 03/18/2022 8:51 AM EDT 03/18/2022 9:50 AM EDT [facility] - 03/18/2022 10:51 AM EDT Specimen is considered negative for HBsAg. Ermelinda Caputo MD LAB BLOOD ORDERABLES Final Re sult Performing Organization Address City/[facility]/ZIP Co de Phone Number [facility] [address] * Hepatitis C Antibody (03/18/2022 8:51 AM EDT) HCV Ab Nonreactive Nonreactive 03/18/2022 10:55 AM EDT [facility] Comment:Health Department no tified in accordance with reportable infectious disease guidelines. Serum 03/18/2022 8:51 AM EDT 03/18/2022 9:50 AM EDT Narrative [facility] - 03/18/2022 10:55 AM EDT Antibodies to HCV not detected; does not exclude the possibility of exposure to HCV. Ermelinda Caputo MD LAB BLOOD ORDERABLES Final Re sult Performing Organization Address [facility] Co de Phone Number [facility] [address] [place] [address] * (ABNORMAL) POC Oxyhemoglobin (03/18/2022 8:37 AM EDT) POC Oxyhemoglobin 68.2(L) 95 - 98 % 022 8:34 AM EDT [facility] Comment:SEE CATH REPORT FOR COMPREHENSIVE RESULTS Blood, Arterial 03/18/2022 8 :37 AM EDT 03/18/2022 8:34 AM EDT Kelsey Carcamo MD LAB BLOOD ORDERABLES Yoselin l Result Performing Organization Address [facility] Co de Phone Number [facility] [address] [place] [address] * (ABNORMAL) POC Total Hemoglobin (03/18/2022 8:37 AM EDT) POC Total Hemoglobin 8.4(L) 14.0 - 18.0 g/dL 03/18/2022 8:34 AM EDT [facility] Comment:SEE CATH REPORT FOR COMPREHENSIVE RESULTS Blood, Arterial 03/18/2022 8 :37 AM EDT 03/18/2022 8:34 AM EDT Kelsey Carcamo MD LAB BLOOD ORDERABLES Yoselin l Result Performing Organization Address [facility] Co de Phone Number [facility] [address] [place] [address] * (ABNORMAL) POC Oxyhemoglobin (03/18/2022 8:33 AM EDT) POC Oxyhemoglobin 70.8(L) 95 - 98 % 022 8:31 AM EDT [facility] Comment:SEE CATH REPORT FOR COMPREHENSIVE RESULTS Blood, Arterial 03/18/2022 8 :33 AM EDT 03/18/2022 8:30 AM EDT us Kelsey Carcamo MD LAB BLOOD ORDERABLES Yoselin l Result Performing Organization Address [facility] Co de Phone Number [facility] [address] * (ABNORMAL) POC Total Hemoglobin (03/18/2022 8:33 AM EDT) POC Total Hemoglobin 8.3(L) 14.0 - 18.0 g/dL 03/18/2022 8:31 AM EDT [facility] Comment:SEE CATH REPORT FOR COMPREHENSIVE RESULTS Blood, Arterial 03/18/2022 8 :33 AM EDT 03/18/2022 8:30 AM EDT us Kelsey Carcamo MD LAB BLOOD ORDERABLES Yoselin l Result Performing Organization Address [facility] Co de Phone Number [facility] [address] [place] [address] * #1 Blood culture-Peripheral site 1 (03/18/2022 7:49 AM EDT) Culture Result No Growth After 5 Days [facility] Blood BLOOD SPECIMEN / Unknown 03/18/2022 7:49 AM EDT 03/18/2022 8:17 AM EDT Narrative [facility] - 03/23/2022 8:22 AM EDT Three different sites Suboptimal volume of blood received. Interpret results with caution. us Neyda Espinoza MD MICROBIOLOGY - GENERAL ORDERAB LES Final Result Performing Organization Address [facility] Co de Phone Number [facility] [address] [place] [address] * (ABNORMAL) CBC (03/18/2022 4:58 AM EDT) WBC 3.1(L) 3.8 - 10.8 10E3/uL 03/18/2022 7:06 AM EDT [facility] RBC 2.45(L) 4.20 - 5.80 10E6/uL 03/18/2022 7:06 AM EDT [facility] Hemoglobin 8.4(L) 13.2 - 17.1 g/dL 03/18/2022 7:06 AM EDT [facility] Hematocrit 24.9(L) 38.5 - 50.0 % 03/18/2022 7:06 AM EDT [facility] MCV 101.5(H) 80.0 - 100.0 fL 03/18/2022 7:06 AM EDT [facility] MCH 34.0(H) 27.0 - 33.0 pg 03/18/2022 7:06 AM EDT [facility] MCHC 33.5 32.0 - 36.0 g/dL 03/18/2022 7:06 AM EDT [facility] RDW 14.0 11.0 - 15.0 % 03/18/2022 7:06 AM EDT [facility] Platelets 154 140 - 400 10E3/uL 03/18/2022 7:06 AM EDT [facility] MPV 7.4(L) 7.5 - 11.5 fL 03/18/2022 7:06 AM EDT [facility] Whole Blood 03/18/2022 4:58 AM EDT 03/18/2022 6:56 AM EDT us Neyda Espinoza MD LAB BLOOD ORDERABLES Final Res ult [facility] [address] * (ABNORMAL) Renal Function Panel w/EGFR (03/18/2022 4:58 AM EDT) Sodium 138 133 - 146 mmol/L 03/18/2022 7:33 AM EDT [facility] Potassium 4.4 3.5 - 5.3 mmol/L 03/18/2022 7:33 AM EDT [facility] Chloride 94(L) 98 - 110 mmol/L 03/18/2022 7:33 AM EDT [facility] CO2 29 21 - 33 mmol/L 03/18/2022 7:33 AM EDT [facility] Anion Gap 15 3 - 16 mmol/L 03/18/2022 7:33 AM EDT [facility] BUN 60(H) 7 - 25 mg/dL 03/18/2022 7:33 AM EDT [facility] Creatinine 9.96(H) 0.60 - 1.30 mg/dL 03/18/2022 7:33 AM EDT [facility] Glucose 91 70 - 100 mg/dL 03/18/2022 7:33 AM EDT [facility] Calcium 8.3(L) 8.6 - 10.3 mg/dL 03/18/2022 7:33 AM EDT [facility] Phosphorus 7.0(H) 2.1 - 4.7 mg/dL 03/18/2022 7:33 AM EDT [facility] Albumin 4.2 3.5 - 5.7 g/dL 03/18/2022 7:33 AM EDT [facility] Osmolality, Calculated 302 278 - 305 mOsm/kg 03/18/2022 7:33 AM EDT [facility] EGFR 6 03/18/2022 7:33 AM EDT [facility] Comment:As of 2021, the [...] MD LAB BLOOD ORDERABLES Final Res ult [facility] [address] [place], [place] [address] * Magnesium (03/18/2022 4:58 AM EDT) Magnesium 2.0 1.5 - 2.5 mg/dL 03/18/2022 7:33 AM EDT [facility] Plasma 03/18/2022 4:58 AM EDT 03/18/2022 6:56 AM EDT Neyda Espinoza MD LAB BLOOD ORDERABLES Final Res ult [facility] [address] * (ABNORMAL) POC Glucose Monitoring Device (03/18/2022 3:57 AM EDT) POC Glucose Monitoring Device 123(H) 70 - 100 mg/dL 03/18/2022 3:58 AM EDT [facility] Blood 03/18/2022 3:57 AM EDT 03/18/2022 3:57 AM EDT Kelsey Carcamo MD POINT OF CARE TEST ORDERA BLES Final Result Performing Organization Address [facility] Co de Phone Number [facility] [address] * ECG 12 lead (MUSE) (03/18/2022 12:43 AM EDT) 03/18/2022 12:4 3 AM EDT Narrative MUSE - 03/19/2022 12:37 AM EDT Ventricular Rate: ??71 ??BPM Atrial Rate: ??71 ??BPM P-R Interval: ??234 ??ms QRS Duration: ??108 ??ms QT: ??472 ??ms QTc: ??512 ??ms P [place]: ??50 ??degrees R [place]: ??71 ??degrees T [place]: ??40 ??degrees Diagnosis Line: ??SINUS RHYTHM WITH 1ST DEGREE A-V BLOCK ^ PROLONGED QT ^ ABNORMAL ECG ^ COMPARED TO THE ECG OF 17-MAR-2022 03:37, ^ BORDERLINE CRITERIA FOR INFERIOR INFARCT ARE NO LONGER PRESENT ^ NONSPECIFIC T WAVE CHANGE HAS REPLACED INVERTED T WAVES IN INFERIOR LEADS ^ Confirmed by MD ANTONIO, AMER ([id number]) on 03/19/2022 12:37:36 AM Grace Payan DO ECG ORDERABLES Final Result Performing Organization Address City/[facility]/ZIP Co de Phone Number MUSE * #2 Blood culture-Peripheral site 2 (03/18/2022 12:16 AM EDT) Pathologist [facility] Culture Result No Growth After 5 Days [facility] Blood BLOOD SPECIMEN / Unknown 03/18/2022 12:16 AM EDT 03/18/2022 1:00 AM EDT Narrative [facility] - 03/23/2022 1:02 AM EDT Suboptimal volume of blood received. Interpret results with caution. Neyda Espinoza MD MICROBIOLOGY - GENERAL ORDERAB LES Final Result Performing Organization Address [facility] Co de Phone Number [facility] [address] * (ABNORMAL) POC Glucose Monitoring Device (03/17/2022 11:40 PM EDT) [facility] POC Glucose Monitoring Device 207(H) 70 - 100 mg/dL 03/17/2022 11:41 PM EDT [facility] Blood 03/17/2022 11:4 0 PM EDT 03/17/2022 11:41 PM EDT Kelsey Carcamo MD POINT OF CARE TEST ORDERA BLES Final Result Performing Organization Address [facility] Co de Phone Number [facility] [address] * (ABNORMAL) Hepatitis B Surface Antibody, Quantitati (03/17/2022 9:23 PM EDT) [facility] HBSAB NUMBER >500.00(H ) 0.00 - 7.99 mIU/mL 03/17/2022 10:44 PM EDT [facility] Hep B S Ab Reactive( A) Nonreactive 03/17/2022 10:44 PM EDT [facility] Serum 03/17/2022 9:23 PM EDT 03/17/2022 9:40 PM EDT [facility] - 03/17/2022 10:44 PM EDT Individual is considered immune to HBV infection. [employer] Mahaj[employer] LAB BLOOD ORDERABLES Fi nal Result Performing Organization Address [facility] Co de Phone Number [facility] [address] [place] [address] * (ABNORMAL) Hepatitis B Core Antibody (03/17/2022 9:23 PM EDT) Hep B Core Total Ab Reactive( A) Nonreactive 03/17/2022 11:39 PM EDT [facility] Comment: Health Department notified in accordance with reportable infectious disease guidelines. Health Department notified in accordance with reportable infectious disease guidelines. Serum 03/17/2022 9:23 PM EDT 03/17/2022 9:40 PM EDT [facility] - 03/17/2022 11:39 PM EDT A reactive final interpretation indicates presumptive evidence of HBV; anti-HBc antibodies were detected in the sample which suggests either on-going or previous HBV infection. Fortino Reinaldogale Mahajana DO LAB BLOOD ORDERABLES Fi nal Result Performing Organization Address [facility] de Phone Number [facility] [address] [place] [address] * Hepatitis A IgM (03/17/2022 9:23 PM EDT) Hep A IgM Nonreactive Nonreactive 03/17/2022 10:30 PM EDT [facility] Serum 03/17/2022 9:23 PM EDT 03/17/2022 9:40 PM EDT [facility] - 03/17/2022 10:30 PM EDT IgM anti-HAV not detected. Does not exclude the possibility of exposure to or infection with HAV. ??Levels of IgM anti-HAV may be below the cut-off in early infection. [employer] LAB BLOOD ORDERABLES Fi nal Result Performing Organization Address City/[facility] Co de Phone Number [facility] [address] * Hepatitis C Antibody (03/17/2022 9:23 PM EDT) HCV Ab Nonreactive Nonreactive 03/17/2022 10:40 PM EDT [facility] Comment:Health Department no tified in accordance with reportable infectious disease guidelines. Serum 03/17/2022 9:23 PM EDT 03/17/2022 9:40 PM EDT [facility] - 03/17/2022 10:40 PM EDT Antibodies to HCV not detected; does not exclude the possibility of exposure to HCV. [employer] LAB BLOOD ORDERABLES Fi nal Result Performing Organization Address [facility] Co de Phone Number [facility] [address] [place] [address] * Hepatitis B surface antigen (03/17/2022 9:23 PM EDT) Hep B Surface Ag Nonreactive Nonreactive 03/17/2022 10:35 PM EDT [facility] Comment:Health Department no tified in accordance with reportable infectious disease guidelines. Serum 03/17/2022 9:23 PM EDT 03/17/2022 9:40 PM EDT [facility] - 03/17/2022 10:35 PM EDT Specimen is considered negative for HBsAg. [employer] LAB BLOOD ORDERABLES Fi nal Result Performing Organization Address [facility] Co de Phone Number [facility] [address] [place] [address] * #1 Blood culture-Peripheral site 1 (03/17/2022 9:23 PM EDT) Culture Result No Growth After 5 Days [facility] Blood BLOOD SPECIMEN / Unknown 03/17/2022 9:23 PM EDT 03/17/2022 9:47 PM EDT Narrative [facility] - 03/22/2022 9:50 PM EDT Suboptimal volume of blood received. Interpret results with caution. Neyda Espinoza MD MICROBIOLOGY - GENERAL ORDERAB LES Final Result Performing Organization Address [facility]/ZIP Co de Phone Number [facility] [address] [place] [address] * (ABNORMAL) Cyclosporine level (03/17/2022 9:23 PM EDT) Pathologist [facility] Cyclosporine, LC/MS 67.3(L) 100.0 - 350.0 ng/mL 03/18/2022 3:25 PM EDT [facility] Comment:Performed via liquid chromatography tandem mass spectrometry. Detection limit: 20 ng/mL. Individual target concentrations may vary due to target organ and time after transplant. This test has been developed and its performance characteristics determined by [facility] which is certified under the [...] PM EDT 03/17/2022 9:27 PM EDT Narrative [facility] - 03/18/2022 3:25 PM EDT Please obtain trough level prior to evening dose us Nadya Ramirez MD LAB BLOOD ORDERABLES Final Resul t Performing Organization Address City/[facility]/ZIP Co de Phone Number [facility] [address] [place] [address] * (ABNORMAL) POC Glucose Monitoring Device (03/17/2022 6:03 PM EDT) POC Glucose Monitoring Device 127(H) 70 - 100 mg/dL 03/17/2022 6:04 PM EDT [facility] Blood 03/17/2022 6:03 PM EDT 03/17/2022 6:04 PM EDT Kelsey Carcamo MD POINT OF CARE TEST ORDERA BLES Final Result [facility] [address] [place] [address] * Echo 2D Complete (TTE) (03/17/2022 1:55 PM EDT) 03/17/2022 1:17 PM EDT Narrative [facility] - 03/17/2022 3:00 PM EDT ?* [facility]* ?[address] [facility] ? [place] [address] ? [phone] Transthoracic Echocardiography Patient: ?Leoncio Rollins MR #: ? [id number] Account: Study Date: 03/17/2022 Gender: ? M Age: ?47 : ?1975 Room: ? [facility] FE[facility] ? Dontae Hawkins MD PERFORMING ?? Vinod Stokes MD READING ?Dontae Hawkins MD [employer] FEEDER ??Ashish Sheldon ORDERING ? Mandi Mora REFERRING [...] ?Reviewed and confirmed by Vinod Stokes MD [id number] Procedure Note Vinod Stokes MD - 03/17/2022 * [facility]* [address] [place] [address] Transthoracic Echocardiography Patient: Leoncio Rollins MR #: [id number] Account: Study Date: 03/17/2022 Gender: M Age: 47 : 1975 Room: [facility] FELLOW Dontae Hawkins MD PERFORMING Vinod Stokes MD READING Dontae Hawkins MD [employer] FEEDER Ashish Sheldon ORDERING Mandi Mora REFERRING Mandi [...] Reviewed and confirmed by Vinod Stokes MD [id number] us Mandi Mora MD CV ECHO ORDERABLES Final Resul t [facility] * (ABNORMAL) POC Glucose Monitoring Device (03/17/2022 1:00 PM EDT) Pathologist [facility] POC Glucose Monitoring Device 103(H) 70 - 100 mg/dL 03/17/2022 1:01 PM EDT [facility] Blood 03/17/2022 1:00 PM EDT 03/17/2022 1:01 PM EDT us Kelsey Carcamo MD POINT OF CARE TEST ORDERA BLES Final Result Performing Organization Address [facility] Co de Phone Number [facility] [address] * (ABNORMAL) CBC (03/17/2022 9:57 AM EDT) WBC 2.7(L) 3.8 - 10.8 10E3/uL 03/17/2022 10:43 AM EDT [facility] RBC 2.59(L) 4.20 - 5.80 10E6/uL 03/17/2022 10:43 AM EDT [facility] Hemoglobin 8.7(L) 13.2 - 17.1 g/dL 03/17/2022 10:43 AM EDT [facility] Hematocrit 26.5(L) 38.5 - 50.0 % 03/17/2022 10:43 AM EDT [facility] MCV 102.5(H) 80.0 - 100.0 fL 03/17/2022 10:43 AM EDT [facility] MCH 33.6(H) 27.0 - 33.0 pg 03/17/2022 10:43 AM EDT [facility] MCHC 32.8 32.0 - 36.0 g/dL 03/17/2022 10:43 AM EDT [facility] RDW 14.5 11.0 - 15.0 % 03/17/2022 10:43 AM EDT [facility] Platelets 149 140 - 400 10E3/uL 03/17/2022 10:43 AM EDT [facility] MPV 7.4(L) 7.5 - 11.5 fL 03/17/2022 10:43 AM EDT [facility] Whole Blood 03/17/2022 9:57 AM EDT 03/17/2022 10:34 AM EDT us Nadya Ramirez MD LAB BLOOD ORDERABLES Final Resul t [facility] [address] [place] [address], [facility] * US Duplex Elt-Njj-Ueadmaw Comp (03/17/2022 8:09 AM EDT) Anatomical Region [...] EXAM: US ABDOMEN COMPLETE EXAM: US DUPLEX [id number] COMPLETE INDICATION: ??Elevated LFTs. Remote liver transplant. [...] EXAM: US ABDOMEN COMPLETE EXAM: US DUPLEX [id number] COMPLETE INDICATION: Elevated LFTs. Remote liver transplant. [...] 10:32 AM EDT us Grace Payan DO IMG US ORDERABLES Final Resul t * US [...] EXAM: US ABDOMEN COMPLETE EXAM: US DUPLEX [id number] COMPLETE INDICATION: ??Elevated LFTs. Remote liver transplant. [...] EXAM: US ABDOMEN COMPLETE EXAM: US DUPLEX [id number] COMPLETE INDICATION: Elevated LFTs. Remote liver transplant. [...] 10:32 AM EDT us Grace Payan DO IMG US ORDERABLES Final [...] Morelos MD at 03/17/2022 7:49 AM EDT Gracesara Duartevelasquez DIETRICH IMG DIAGNOSTIC IMAGING ORDERA BLES Final Result * (ABNORMAL) POC Glucose Monitoring Device (03/17/2022 5:53 AM EDT) POC Glucose Monitoring Device 110(H) 70 - 100 mg/dL 03/17/2022 5:54 AM EDT [facility] Blood 03/17/2022 5:53 AM EDT 03/17/2022 5:54 AM EDT Kelsey Carcamo MD POINT OF CARE TEST ORDERA BLES Final Result Performing Organization Address City/State/[facility] Co de Phone Number [facility] [address] * (ABNORMAL) Hemoglobin A1c (03/17/2022 4:49 AM EDT) Hemoglobin A1C 5.8(H) 4.0 - 5.6 % 03/17/2022 8:08 AM EDT [facility] Comment: Hemoglobin A1c Interpretation Guidelines: [...] DO LAB BLOOD ORDERABLES Final Re sult [facility] [address] * 2019 Novel Coronavirus (CoVID-19), FRANKLYN-B (03/17/2022 3:40 AM EDT) SARS-CoV-2 Not Detected Not Detected 03/17/2022 9:55 AM EDT [facility] Comment: This test is an [...] ??Test results have been sent to the [facility] in accordance with state requirements. ?? For a fact sheet for healthcare providers, see https://www.fda.gov/media/761396/download. ??For a fact sheet for patients, see https://www.fda.gov/media/361889/download. Test LOINC ordered 51721-2 03/17/2022 9:55 AM EDT [facility] Device identifier [employer] (DIANA)_ ho [id number] 03/17/2022 9:55 AM EDT HEALTH LAB First Test No 03/17/2022 9:55 AM EDT [facility] Healthcare employee No 03/17/2022 9:55 AM EDT [facility] Symptomatic No 03/17/2022 9:55 AM EDT [facility] Hospitalized Yes 03/17/2022 9:55 AM EDT [facility] In ICU No 03/17/2022 9:55 AM EDT [facility] Congregate Care Resident No 03/17/2022 9:55 AM EDT [facility] No 03/17/2022 9:55 AM EDT [facility] Nasopharyngeal Swab NASOPHARYNGEAL STRUCTURE / Unknown 03/17/2022 3:40 AM EDT 03/17/2022 3:52 AM EDT Narrative [facility] - 03/17/2022 9:55 AM EDT Does [...] FLUIDS AND STOOLS ORDERA BLES Final Result [facility] [address] [place] [address] * ECG 12 lead (MUSE) (03/17/2022 3:37 AM EDT) 03/17/2022 3:37 AM EDT Narrative MUSE - 03/17/2022 5:47 PM EDT Ventricular Rate: ??81 ??BPM Atrial Rate: ??81 ??BPM P-R Interval: ??206 ??ms QRS Duration: ??116 ??ms QT: ??436 ??ms QTc: ??506 ??ms R [place]: ??143 ??degrees T [place]: ??-31 ??degrees Diagnosis Line: ??NORMAL SINUS RHYTHM [...] LATERAL LEADS ^ Confirmed by MD MIGUEL, [facility] ([id number]) on 03/17/2022 5:46:58 PM Grace Payan DO ECG ORDERABLES Final Result [...] Re sult Performing Organization Address [facility]/ZIP Co de Phone Number [facility] [address] * (ABNORMAL) Hepatic Function Panel (03/16/2022 11:34 PM EDT) Total Bilirubin 0.6 0.0 - 1.5 mg/dL 03/17/2022 12:22 AM EDT [facility] Bilirubin, Direct 0.23 0.00 - 0.40 mg/dL 03/17/2022 12:22 AM EDT [facility] AST 12(L) 13 - 39 U/L 03/17/2022 12:22 AM EDT [facility] ALT 8 7 - 52 U/L 03/17/2022 12:22 AM EDT [facility] Alkaline Phosphatase 74 36 - 125 U/L 03/17/2022 12:22 AM EDT [facility] Total Protein 6.9 6.4 - 8.9 g/dL 03/17/2022 12:22 AM EDT [facility] Albumin 4.4 3.5 - 5.7 g/dL 03/17/2022 12:22 AM EDT [facility] Bilirubin, Indirect 0.37 0.00 - 1.10 mg/dL 03/17/2022 12:22 AM EDT [facility] Plasma 03/16/2022 11:3 4 PM EDT 03/16/2022 11:52 PM EDT Naymits DO LAB BLOOD ORDERABLES Final Re sult [facility] [address] * Magnesium (03/16/2022 11:34 PM EDT) Magnesium 1.8 1.5 - 2.5 mg/dL 03/17/2022 12:22 AM EDT [facility] Plasma 03/16/2022 11:3 4 PM EDT 03/16/2022 11:52 PM EDT Grace Payan DO LAB BLOOD ORDERABLES Final Re sult [facility] [address] [place] [address], [facility] * (ABNORMAL) Renal Function Panel w/EGFR (03/16/2022 11:34 PM EDT) Sodium 140 133 - 146 mmol/L 03/17/2022 12:22 AM EDT [facility] Potassium 4.1 3.5 - 5.3 mmol/L 03/17/2022 12:22 AM EDT [facility] Chloride 97(L) 98 - 110 mmol/L 03/17/2022 12:22 AM EDT [facility] CO2 29 21 - 33 mmol/L 03/17/2022 12:22 AM EDT [facility] Anion Gap 14 3 - 16 mmol/L 03/17/2022 12:22 AM EDT [facility] BUN 48(H) 7 - 25 mg/dL 03/17/2022 12:22 AM EDT [facility] Creatinine 7.83(H) 0.60 - 1.30 mg/dL 03/17/2022 12:22 AM EDT [facility] Glucose 111(H) 70 - 100 mg/dL 03/17/2022 12:22 AM EDT [facility] Calcium 9.1 8.6 - 10.3 mg/dL 03/17/2022 12:22 AM EDT [facility] Phosphorus 4.9(H) 2.1 - 4.7 mg/dL 03/17/2022 12:22 AM EDT [facility] Albumin 4.4 3.5 - 5.7 g/dL 03/17/2022 12:22 AM EDT [facility] Osmolality, Calculated 303 278 - 305 mOsm/kg 03/17/2022 12:22 AM EDT [facility] EGFR 8 03/17/2022 12:22 AM EDT [facility] Comment:As of 2021, the [...] DO LAB BLOOD ORDERABLES Final Re sult [facility] [address] * (ABNORMAL) CBC (03/16/2022 11:34 PM EDT) WBC 3.5(L) 3.8 - 10.8 10E3/uL 03/16/2022 11:59 PM EDT [facility] RBC 2.55(L) 4.20 - 5.80 10E6/uL 03/16/2022 11:59 PM EDT [facility] Hemoglobin 8.6(L) 13.2 - 17.1 g/dL 03/16/2022 11:59 PM EDT [facility] Hematocrit 26.2(L) 38.5 - 50.0 % 03/16/2022 11:59 PM EDT [facility] MCV 102.4(H) 80.0 - 100.0 fL 03/16/2022 11:59 PM EDT [facility] MCH 33.9(H) 27.0 - 33.0 pg 03/16/2022 11:59 PM EDT [facility] MCHC 33.0 32.0 - 36.0 g/dL 03/16/2022 11:59 PM EDT [facility] RDW 14.4 11.0 - 15.0 % 03/16/2022 11:59 PM EDT [facility] Platelets 172 140 - 400 10E3/uL 03/16/2022 11:59 PM EDT [facility] MPV 7.2(L) 7.5 - 11.5 fL 03/16/2022 11:59 PM EDT [facility] Whole Blood 03/16/2022 11:3 4 PM EDT 03/16/2022 11:51 PM EDT us Grace Payan DO LAB BLOOD ORDERABLES Final Re sult [facility] [address] * EKG - SCAN (03/16/2022) us Scanning Uchhim SCAN DOCS - NO RESULTS Final Res ult documented in this encounter Visit Diagnoses Not on filedocumented in this encounter Admitting Diagnoses Diagnosis Hematochezia [...] (after last modification) on 03/20/22 at 1100 Given 03/25/2022 11:24 AM EDT [...] Given 03/24/2022 12:30 PM EDT 5,000 Units Rig t Arm hydrALAZINE (APRESOLINE) tablet 100 mg [...] daily, First dose (after last modification) on Bobbi 03/17/22 at 2100, DO NOT CRUSH Given [...] Dominguez, JANA) 1218 (Given - Provider: Rene Haas, JANA)2158 (Given - Provider: Yareli Dominguez, JANA) 1124 (Given - Provider: Noel Moralez, RN) carvediloL (COREG) tablet 12.5 mg 12.5 mg, [...] RN) 121 (Given - Provider: Rene Haas, RN) cycloSPORINE modified (NEORAL/GENGRAF) capsule 100 mg [...] Plummer RN) 1219 (Given - Provider: Rene Haas, JANA) 1125 (Given - Provider: Noel Moralez, JANA) gabapentin (NEURONTIN) capsule 100 mg 100 mg, Oral, 3 times daily, First dose (after last modification) on Mon03/25/22 at 0900 1124 (Given - Provider: Noel Moralez, RN)1300 (Due) gabapentin (NEURONTIN) capsule 800 mg [...] NOT CRUSH 1116 (Given - Provider: Earnest Shook, RN) isosorbide mononitrate (IMDUR) 24 hr tablet [...] Earnest Plummer RN)2124 (Given - Provider: Yareli Dominguez, JANA) 0631 (Given - Provider: Yareli Dominguez, JANA)1219 (Given - Provider: Rene Haas RN)1745 (Given - Provider: Rene Haas, JANA)2159 (Given [...] Earnest Plummer RN)2122 (Given - Provider: Yareli Dominguez, JANA) 121 (Given - Provider: Rene Haas RN)2158 (Given - Provider: Yareli Dominguez RN) 112 (Given - Provider: Noel Moralez, JANA) NIFEdipine (PROCARDIA-XL) 24 hr tablet 90 mg 90 mg, Oral, 2 times daily, First dose (after last modification) on Mon03/17/22 at 2100, DO NOT CRUSH 112 (Hold - Provider: Earnest Plummer RN - Reason: Transfer to a Procedural area)2124 (Given - Provider: Yareli Dominguez RN) 1216 (Given - Provider: Rene Haas RN)2158 (Given [...] RN) 1123 (Not Given - Provider: Noel Moarlez RN - Reason: Medication not available) sevelamer [...] daily = terazosin (HYTRIN) 10 mg daily 7 (Given - Provider: Yareli Dominguez RN) 2158 [...] Rene Haas, JANA)1620 (Given - Provider: Rene Hasa, JANA)2206 (Given - Provider: Yareli Dominguez, JANA) peppermint oiL liquid 1 mL 1 mL, MISCELLANEOUS, As needed, Nausea and/or Vomiting, Starting on Bobbi 03/17/22 at 0834 Linked Groups Order Group 1: Place saline lock (CANCELED) STAT, Once, On Mon03/16/22 at 2304, For 1 occurrence And sodium chloride flush 10 mLJump to med 10 mL, Intravenous, Every Shift, First dose on Bobbi 03/17/22 at 0500 Group 2: dextrose 10%-water (D10W) [...] as of this encounter Care Teams Supervisor [employer] Relationship Specialty Start Date End Date Edgar Fournier MD [address] [place] [address] [place] [address] PCP - General 12/22/21 Maile Valles, RN Txp Post Coordinator Transplant Hepatology 11/07/17 Jakc Ordoñez MD [address] [place] [phone] Consulting Physician Transplant Hepatology 01/05/18 Estephania Sharif, DarrianD Pharmacist Pharmacist 11/11/19 documented as of this encounter
--- OUTSIDE RECORDS SUMMARY | 2024-07-12 12:33 | XMS_ITS | Encounter Summary ---
Author Organization [facility] Address [address] [place] [address] Care Team Providers Care Evs Manager Name Role Phone Maile Valles RN Unavailable Unavail able Jack Ordoñez MD Unavailable Estephania Sharif PharmD Unavailable Christine Edgar Tolentino MD Primary Care Provider [phone] Source Comments This information has been disclosed [...] release of HIV test results or diagnoses. [id number] Encounter Details Date Type Department Care Team (Latest Contact Info) Description 12/22/2021 Travel Social History Tobacco Use Types Packs/Day [...] have Coronavirus / COVID-19? No / Unsure 12/22/2021 2:24 PM EDT documented as of this encounter Plan of Treatment Upcoming Encounters Date Type Department Care Team (Late st Contact Info) Description 07/15/2024 9:00 AM EST Hospital Encounter [facility] Interventional Radiology [address] [place] [phone] Herve Carrillo MD [address] [facility] Ed [address] [facility] [place] [phone] documented as of this encounter Visit Diagnoses Not on filedocumented in this encounter Additional Health Concerns Assessment Noted Time PHQ-9 Depression Total Score: 0 12/06/19 18 3:00 PM EDT documented as of this encounter Care Teams Evs Manager Relationship Specialty Start Date End Date Edgar Fournier MD [address] [place] [address] [place] [address] PCP - General 12/22/21 Maile Valles, RN Txp Post Coordinator Transplant Hepatology 11/07/17 Jack Ordoñez MD [address] [place] [phone] Consulting Physician Transplant Hepatology 01/05/18 Estephania Sharif, DarrianD Pharmacist Pharmacist 11/11/19 documented as of this encounter
--- OUTSIDE RECORDS SUMMARY | 2024-07-12 12:33 | XMS_ITS | Encounter Summary ---
Author Organization [facility] Address [address] [place] [address] Care Team Providers Care Medical Lab Scientist Name Role Phone Maile Valles RN Unavailable Unavail able Jack Ordoñez MD Unavailable [phone] Estephania Sharif PharmD Unavailable Christine Edgar Tolentino MD Primary Care Provider [phone] Source Comments This information has been disclosed [...] release of HIV test results or diagnoses. [id number] Health Encounter Details Date Type Department Care Team (Latest Contact Info) Description 12/22/2021 Orders Only [facility] Transplant Related Interdisciplinary Metabolic Surgery at [facility] [address] [facility] [address] [place] [address] Jen Pablo CNP [address] [facility] [address] Preoperative clearance (Primary Dx) Social History Tobacco Use Types [...] [facility] Interventional Radiology [address] [place] [phone] Herve Carrillo MD [address] [facility] [address] [place] [phone] documented as of this encounter Visit Diagnoses Diagnosis Preoperative clearance- Primary Unspecified pre-operative examination documented in this encounter Additional Health Concerns Assessment Noted Time PHQ-9 Depression Total Score: 0 12/06/19 18 3:00 PM EDT documented as of this encounter Care Teams Medical Lab Scientist Relationship Specialty Start Date End Date Edgar Fournier MD [address] [place] [address] [place] [address] PCP - General 12/22/21 Maile Valles, RN Txp Post Coordinator Transplant Hepatology 11/07/17 Jack Ordoñez MD [address] [place] [phone] Consulting Physician Transplant Hepatology 01/05/18 Estephania Sharif, DarrianD Pharmacist Pharmacist 11/11/19 documented as of this encounter
--- OUTSIDE RECORDS SUMMARY | 2024-07-12 12:33 | XMS_ITS | Encounter Summary ---
Author Organization [facility] Address [address] [place] [id number] Care Team Providers Care Candle Wicker Name Role Phone Maile Valles RN Unavailable Unavail able Jack Ordoñez MD Unavailable Estephania Sharif PharmD Unavailable Christine Edgar Tolentino MD Primary Care Provider [phone] Source Comments This information has been disclosed [...] release of HIV test results or diagnoses. [id number] Encounter Details Date Type Department Care Team (Latest Contact Info) Description 03/17/2022 Travel Social History Tobacco Use Types Packs/Day [...] 07/15/2024 9:00 AM EST Hospital Encounter [facility] Interventional Radiology [address] [place] [phone] Hevre Carrillo MD [address] [facility] Ed [address] [place] [phone] documented as of this encounter Visit Diagnoses Not on filedocumented in this encounter Additional Health Concerns Infection Onset Date Last Indicated Resolved Time Rule Out COVID-19 03/16/2022 03/17/2022 03/17/2022 9:55 AM EDT Assessment Noted Time PHQ-9 Depression Total Score: 0 12/06/19 18 3:00 PM EDT documented as of this encounter Care Teams Candle Wicker Relationship Specialty Start Date End Date Edgar Fournier MD [address] [place] [phone] PCP - General 12/22/21 Maile Valles, RN Txp Post Coordinator Transplant Hepatology 11/07/17 Jack Ordoñez MD [address] [place] [phone] Consulting Physician Transplant Hepatology 01/05/18 Estephania Sharif, DarrianD Pharmacist Pharmacist 11/11/19 documented as of this encounter
--- OUTSIDE RECORDS SUMMARY | 2024-07-12 12:33 | XMS_ITS | Encounter Summary ---
Author Organization [facility] Address [address] [place] [address] Care Team Providers Care Integrity Analyst Name Role Phone Maile Valles RN Unavailable Unavail able Jack Ordoñez MD Unavailable [phone] Estephania Saravia PharmD Unavailable Christine vailable System, Provider Not [...] release of HIV test results or diagnoses. [id number] Health Encounter Details Date Type Department Care Team (Late st Contact Info) Description 11/15/2021 Telephone [facility] [address] [place] [address] Estephania Saravia, PharmD Social History Tobacco [...] Telephone Encounter - Estephania Saravia, PharmD - 11/15/2021 3:24 PM EDT [facility] Special[facility]: Transplant Assessment Aiden Stauffer Jr. is a 46 y.o. old male patient who has a [...] prophylaxis regimen as: ?? Entecavir 0.5mg weekly (HD dosing) ?? New Meds/Medication Changes: ?? Admitted to [facility] 10-31 to 11-01 and started on folic acid and iron supplementation ?? Admitted to 11/08 to 11/09, found to have bronchitis - completing short course steroids and 10 day course of cefdinir now ?? Pt taking kaylexalate 15mL once daily Patient's prescription and non-prescription medications and [...] times a day with meals. ??? carBAMazepine Take 200 mg by mouth 2 times a day. ??? cinacalcet Take 60 mg by mouth daily with breakfast. ??? cycloSPORINE modified Take 4 capsules (100 mg total) by mouth 2 times a day. ??? doxazosin Take 8 mg by mouth at bedtime. ??? entecavir Take 1 tablet (0.5 mg total) by mouth every 7 days. ??? ergocalciferol Take 50,000 Units by mouth every Monday, , and Monday. ??? fenofibrate micronized Take 134 mg by mouth every morning before breakfast. ??? ferrous sulfate Take 1 tablet (325 mg total) by mouth daily with breakfast. ??? folic acid Take 1 tablet (1 mg total) by mouth daily. ??? gabapentin Take 400 mg by mouth at bedtime. ??? hydrALAZINE Take 1 tablet (100 mg total) by mouth every 8 hours. ??? insulin aspart U-100 Administers per sliding scale 3 times daily with meals ??? melatonin Take 2 tablets (6 mg total) by mouth at bedtime. ??? methocarbamoL Take 500 mg by mouth daily. ??? metoprolol tartrate Take 1 tablet (25 mg total) by mouth 2 times a day. ??? mycophenolate Take 1 capsule (250 mg total) by mouth 2 times a day. ??? NIFEdipine Take 90 mg by mouth 2 times a day. ??? omega-3 fatty acids-fish oil Take 2 capsules by mouth 2 times a day with meals. ??? ondansetron Take 4 mg by mouth every 8 hours as needed. ??? pantoprazole Take 1 tablet (40 mg total) by mouth daily. (Patient taking differently: Take 40 mg by mouth in the morning and at bedtime. ) ??? polyethylene glycol Take 17 g by mouth daily as needed (mild constipation (no BM for 24 hrs)). ??? sevelamer carbonate Take 1,600 mg by mouth 3 times a day with meals. ??? blood sugar diagnostic Use to test blood sugar up to 4 times a day. Diagnosis for use: E 9.65. For use with One Touch Verio meters. ??? blood-glucose meter Use as instructed. ??? lancets Use 1 strip as directed 4 times daily before meals and at bedtime. ??? pen needle, diabetic Use as directed to inject insulin 4 times daily. No current facility-administered medications for this visit. Allergies Allergen Reactions ??? Tacrolimus Other (See Comments) Anxious feeling and muscle jerking. TOLERATED ENVARSUS BETTER THAN PROGRAF. ??? Codeine Sulfate Hyper ??? Codeine Other (See Comments) Becomes hyper Medication list evaluated for clinically significant drug interactions, with the following noted: -Carbamazepine significant interacts and alters drug concentration of cyclosporine, would need doseadjustment of cyclosporine if carbamazepine dose changed Lab Results Component Value Date WBC 5.3 11/01/2021 HGB 9.7 (L) 11/01/2021 HCT 28.6 (L) 11/01/2021 MCV 104.1 (H) 11/01/2021 PLT 207 11/01/2021 Lab Results Component Value Date GLUCOSE 145 (H) 11/01/2021 BUN 53 (H) 11/01/2021 CREATININE 8.46 (H) 11/01/2021 K 5.3 11/01/2021 BCR 6.9 11/19/2020 PHOS 6.9 (H) 11/01/2021 ALBUMIN 3.8 11/01/2021 EGFR 7 11/01/2021 Adherence & Counseling: ??? Issues (if any) patient has had with taking medication as prescribed: none ??? Assessment of patient's medication adherence: followed as prescribed ??? Patient???s perception of effectiveness of medication therapy: positve perception ??? Vaccination Status o Pt did not get annual flu shot o Pt has received 2 doses of COVID vaccine, discussed need for 3rd and then 4th booster. Adverse Effects & Patient Issues: ??? Assessment of occurrence of medication adverse effects: none ??? Denies signs/symptoms of infection (fever,chills,new onset diarrhea/vomiting, shortness of breath, burning or pain with urination as applicable) ??? Pt reports having some difficulty at dialysis where they are unable to remove all the fluid they need to as he cannot tolerate it. Assessment of Patient's Therapy and Barriers: ?? [...] management plan: not applicable ?? Patient's motivation: moderate ? ? Goal: maintain therapeutic cyclosporine trough concentations (goal 50-100) --> last level therapeutic at 51.9 on 09/21/21 ??? Time Frame: 1 year ?? Resources available to implement care management plan: not applicable ?? Patient's motivation: moderate Follow-Up: Prescriptions will be filled by [facility]. Method of delivery: shipped via UPS by end of day 11/17/21. Patient should receive medication 11/22/21. Reassessment due in 1 year, approximately 11/15/2022. Routed note to provider for review. ESTEPHANIA SARAVIA [facility] [phone] (phone) 11/15/2021, 3:25 PM documented in this encounter Plan of Treatment Upcoming Encounters Date Type Department Care Team (Late st Contact Info) Description 07/15/2024 9:00 AM EST Hospital Encounter [facility] Interventional Radiology [address] [place] [phone] Herve Carrillo MD [address] [facility] [address] [place] [phone] documented as of this encounter Visit Diagnoses Not on filedocumented in this encounter Additional Health Concerns Assessment Noted Time PHQ-9 Depression Total Score: 0 12/06/19 18 3:00 PM EDT documented as of this encounter Care Teams Integrity Analyst Relationship Specialty Start Date End Date System, Provider Not In PCP - General 06/24/21 12/21/21 Maile Valles, RN Txp Post Coordinator Transplant Hepatology 11/07/17 Jack Ordoñez MD [address] [place] [phone] Consulting Physician Transplant Hepatology 01/05/18 Estephania Saravia, DarrianD Pharmacist Pharmacist 11/11/19 documented as of this encounter
--- OUTSIDE RECORDS SUMMARY | 2024-07-12 12:33 | XMS_ITS | Encounter Summary ---
Author Organization [facility] Address [address] [place] [address] Care Team Providers Care Opener Name Role Phone Maile Valles RN Unavailable Unavail able Jack Ordoñez MD Unavailable [phone] Estephanai Sharif PharmD Unavailable Christine Edgar Tolentino MD Primary Care Provider [phone] Source Comments This information has been disclosed [...] release of HIV test results or diagnoses. [id number] Health Encounter Details Date Type Department Care Team (Late st Contact Info) Description 12/22/[address] [facility] Transplant Related Interdisciplinary Metabolic Surgery at [facility] Office [address] [facility] [address] [place] [address] Jen Pablo CNP [address] [facility] [address] Morbid obesity with BMI of 40.0-44.9, adult (CMS-HCC) (Primary Dx) Social History Tobacco Use [...] 9:00 AM EST Hospital Encounter [facility] Interventional Radiology [address] [place] [phone] Herve Carrillo MD [address] [facility] [address] [place] [phone] documented as of this encounter Visit Diagnoses Diagnosis Morbid obesity with BMI of 40.0-44.9, adult (CMS-HCC)- Primary documented in this encounter Additional Health Concerns Assessment Noted Time PHQ-9 Depression Total Score: 0 12/06/19 18 3:00 PM EDT documented as of this encounter Care Teams Opener Relationship Specialty Start Date End Date Edgar Fournier MD [address] [place] [address] [place] [phone] PCP - General 12/22/21 Maile Valles, JANA Txp Post Coordinator Transplant Hepatology 11/07/17 Jack Ordoñez MD [address] [place] [phone] Consulting Physician Transplant Hepatology 01/05/18 Estephania Sharif, DarrianD Pharmacist Pharmacist 11/11/19 documented as of this encounter
--- OUTSIDE RECORDS SUMMARY | 2024-07-12 12:33 | XMS_ITS | Encounter Summary ---
Author Organization [facility] Address [facility] [place] [address] Care Team Providers Care Watch Train Assembler Name Role Phone Maile Valles RN Unavailable Unavail able Jack Ordoñez MD Unavailable Estephania Sharif PharmD Unavailable Christine vailable System, [...] release of HIV test results or diagnoses. [id number] Reason for Visit * Reason Comments Advice Only Encounter Details Date Type Department Care Team (Late st Contact Info) Description 11/22/2021 Telephone [facility] Weight Loss Center at [facility] [address] [place] [address] Nely Hernandez MA Advice Only Social History Tobacco Use [...] encounter Miscellaneous Notes * Telephone Encounter - Nely Hernandez MA - 11/22/2021 10:10 AM EDT DH 11/22/21 - SW pt анна [place] in [facility] 12/22/21, letter created and mcm sent. documented in this encounter Plan of Treatment Upcoming Encounters Date Type Department Care Team (Late st Contact Info) Description 07/15/2024 9:00 AM EST Hospital Encounter [facility] Interventional Radiology [address] [place] [phone] Herve Carrillo MD [address] [facility] [address] [facility] [place] [phone] documented as of this encounter Visit Diagnoses Not on filedocumented in this encounter Additional Health Concerns Assessment Noted Time PHQ-9 Depression Total Score: 0 12/06/19 18 3:00 PM EDT documented as of this encounter Care Teams Watch Train Assembler Relationship Specialty Start Date End Date System, Provider Not In PCP - General 06/24/21 12/21/21 Maile Valles, RN Txp Post Coordinator Transplant Hepatology 11/07/17 Jack Ordoñez MD [address] [place] [phone] Consulting Physician Transplant Hepatology 01/05/18 Estephania Sharif, DarrianD Pharmacist Pharmacist 11/11/19 documented as of this encounter
--- OUTSIDE RECORDS SUMMARY | 2024-07-12 12:33 | XMS_ITS | Encounter Summary ---
Author Organization [facility] Address [address] [place] [address] Care Team Providers Care Pickle Cutter Name Role Phone Maile Valles RN Unavailable Unavail able Jack Ordoñez MD Unavailable [phone] Estephania Sharif PharmD Unavailable Christine Edgar Tolentino MD Primary Care Provider [phone] Source Comments This information has been disclosed [...] release of HIV test results or diagnoses. [id number] Health Encounter Details Date Type Department Care Team (Latest Contact Info) Description 03/17/2022 Orders Only [facility] [id number] [place] [phone] Kelsey Carcamo MD Abnormal CT scan (Primary Dx); Rectal bleeding Social History Tobacco Use Types Packs/Day Years [...] EST Hospital Encounter [facility] Interventional Radiology [address] [place] [phone] Herve Carrillo MD [address] [facility] [address] [place] [phone] documented as of this encounter Visit Diagnoses Diagnosis Abnormal CT scan- Primary Other nonspecific (abnormal) findings on radiological and other examinations of body structure Rectal bleeding Hemorrhage of rectum and anus documented in this encounter Additional Health Concerns Infection Onset Date Last Indicated Resolved Time Rule Out COVID-19 03/16/2022 03/17/2022 03/17/2022 9:55 AM EDT Assessment Noted Time PHQ-9 Depression Total Score: 0 12/06/19 18 3:00 PM EDT documented as of this encounter Care Teams Pickle Cutter Relationship Specialty Start Date End Date Edgar Fournier MD [address] [place] [phone] PCP - General 12/22/21 Maile Valles, JANA Txp Post Coordinator Transplant Hepatology 11/07/17 Jack Ordoñ[place] [address] [place] [phone] Consulting Physician Transplant Hepatology 01/05/18 Estephania Sharif, PharmD Pharmacist Pharmacist 11/11/19 documented as of this encounter
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
--- OUTSIDE RECORDS SUMMARY | 2024-07-12 12:33 | XMS_ITS | Encounter Summary ---
Author Organization [facility] Address [address] [place] [address] Care Team Providers Care General Merchandise Salesperson Name Role Phone Maile Valles RN Unavailable Unavail able Jack Ordoñez MD Unavailable [phone] Estephania Sharif PharmD Unavailable Christine Edgar Tolentino MD Primary Care Provider [phone] Source Comments This information has been disclosed [...] release of HIV test results or diagnoses. [id number] Reason for Visit * Reason Comments Medication Refill Encounter Details Date Type Department Care Team (Late st Contact Info) Description 02/09/2022 Refill [facility] Liver Transplant at [facility] [address] [facility] [address] [place] [address] Jack Ordoñez MD [address] [place] [address] Social History Tobacco Use Types [...] [facility] Interventional Radiology [address] [place] [phone] Herve Carrillo MD [address] [facility] [address] Surgery [place] [phone] documented as of this encounter Visit Diagnoses Not on filedocumented in this encounter Additional Health Concerns Assessment Noted Time PHQ-9 Depression Total Score: 0 12/06/19 18 3:00 PM EDT documented as of this encounter Care Teams General Merchandise Salesperson Relationship Specialty Start Date End Date Edgar Fournier MD [address] [place] [address] [place] [address] PCP - General 12/22/21 Maile Valles, RN Txp Post Coordinator Transplant Hepatology 11/07/17 Jack Ordoñez MD [address] [place] [phone] Consulting Physician Transplant Hepatology 01/05/18 Estephania Sharif, DarrianD Pharmacist Pharmacist 11/11/19 documented as of this encounter
--- OUTSIDE RECORDS SUMMARY | 2024-07-12 12:33 | XMS_ITS | Encounter Summary ---
Author Organization [facility] Address [address] [place] [address] Care Team Providers Care Admitting Supervisor Name Role Phone Maile Valles RN Unavailable Unavail able Jack Ordoñez MD Unavailable [phone] Estephania Sharif PharmD Unavailable Christine vailable [...] release of HIV test results or diagnoses. [id number] Reason for Visit * Reason Comments Prior Authorization Gengraf - B vs. D de termination Prior Authorization Mycophenolate - B vs . D determination Encounter Details Date Type Department Care Team (Late st Contact Info) Description 11/11/2021 Telephone [facility] [address] [place] [id number] Estephania Sharif, PharmD Prior Authorization (Gengraf - B vs. D determination); Prior Authorization (Mycophenolate - B vs. D determination) Social History Tobacco Use Types Packs/Day Years [...] Miscellaneous Notes * Telephone Encounter - Judi Khan RPh - 11/12/2021 9:19 AM EDT Prior authorization approved for mycophenolate by patient???s insurance plan ([employer] Medicare Advantage - D benefit). PA expires on 11/11/2022 (NAVNEET ). Patient has copay of $0 per fill. Copay assistance was not necessary. * Telephone Encounter - Judi Khan RPh - 11/11/2021 4:56 PM EDT Prescription received for: mycophenolate 250 mg capsules ?? Insurance rejection message: B VS. D DETERMINATION REQ; USE COVERMYME DS OR MD CALL FOR REVIEW DRUG REQUIRES PRIOR AUTHORIZATION ?? Insurance prior authorization process started via: CoverMyMeds (dyer: [id number]) ?? Using [facility] chart as reference, provided requested information to insurance including: diagnosis code, labs, treatment history and transplant status ?? Claim status: submitted, pending determination. Response expected in 24 -72 hours. ?? Routed note to txp coordinator for review. * Telephone Encounter - MERARY Byrd - 11/11/2021 4:28 PM EDT .[facility] Note Prior authorization approved for cycloSPORINE modified 25mg capsules by patient???s insurance plan [employer] Medicare . [place] expires on 11/11/2022. Patient has copay of $0/fill. Copay assistance was not necessary. Patient???s out of pocket charge after insurance/assistance is $0/fill. Patient informed. Expected start date: 11/11/2021. * Telephone Encounter - MERARY Byrd - 11/11/2021 3:50 PM EDT [facility] Note Prescription received for: cycloSPORINE modified 25MG Capsules Insurance rejection message: Prior Authorization Required Insurance prior authorization process started via: CMM. Dyer: [id number] Using [employer] chart as reference, provided requested information to insurance including: Diagnosis code, labs, imaging, treatment history and transplant status Claim status: submitted, awaiting response. Response expected in 24-72 hours. documented in this encounter Plan of Treatment Upcoming Encounters Date Type Department Care Team (Late st Contact Info) Description 07/15/2024 9:00 AM [facility] Hospital Encounter [facility] Interventional Radiology [address] [place] [phone] Herve Carrillo MD [address] [facility] [address] [place] [phone] documented as of this encounter Visit Diagnoses Not on filedocumented in this encounter Additional Health Concerns Assessment Noted Time PHQ-9 Depression Total Score: 0 12/06/19 18 3:00 PM EDT documented as of this encounter Care Teams Admitting Supervisor Relationship Specialty Start Date End Date System, Provider Not In PCP - General 06/24/21 12/21/21 Maile Valles, JANA Txp Post Coordinator Transplant Hepatology 11/07/17 Jack Ordoñez MD [address] [place] [phone] Consulting Physician Transplant Hepatology 01/05/18 Estephania Sharif, DarrianD Pharmacist Pharmacist 11/11/19 documented as of this encounter
--- OUTSIDE RECORDS SUMMARY | 2024-07-12 12:33 | XMS_ITS | Encounter Summary ---
Author Organization [facility] Address [facility] [place] [address] Care Team Providers Care Paper Cone Machine Operator Name Role Phone Maile Valles [...] release of HIV test results or diagnoses. [id number] Health Encounter Details Date Type Department Care Team (Late st Contact Info) Description 11/19/2021 Telephone [facility] Weight Loss Center at [facility] [address] [place] [address] Maile Can MA Social History Tobacco Use Types Packs/Day [...] Miscellaneous Notes * Telephone Encounter - Maile Can MA - 11/19/2021 9:51 AM EDT Trims pt- no paperwork AG 4.8.22, pt has benefits for bariatric surgery given BMI of 40.46 with JC. DM, HTN. BMI must be 35 or greater with 1 qualifying co morbid . Just do 3 months supervised documented in this encounter Plan of Treatment Upcoming Encounters Date Type Department Care Team (Late st Contact Info) Description 07/15/2024 9:00 AM EST Hospital Encounter [facility] Interventional Radiology [address] [place] [phone] Herve Carrillo MD [address] [facility] [address] [place] [address] documented as of this encounter Visit Diagnoses Not on filedocumented in this encounter Additional Health Concerns Assessment Noted Time PHQ-9 Depression Total Score: 0 12/06/19 18 3:00 PM EDT documented as of this encounter Care Teams Paper Cone Machine Operator Relationship Specialty Start Date End Date System, Provider Not In PCP - General 06/24/21 12/21/21 Maile Valles, JANA Txp Post Coordinator Transplant Hepatology 11/07/17 Jack Ordoñez MD [address] [place] [phone] Consulting Physician Transplant Hepatology 01/05/18 Estephania Sharif, PharmD Pharmacist Pharmacist 11/11/19 documented as of this encounter
--- OUTSIDE RECORDS SUMMARY | 2024-07-12 12:34 | XMS_ITS | Encounter Summary ---
Author Organization [facility] Address [address] [place] [address] Care Team Providers Care Manager Merchandising Name Role Phone Maile Valles RN Unavailable [...] release of HIV test results or diagnoses. [id number] Health Encounter Details Date Type Department Care Team (Late st Contact Info) Description 09/29/2021 Chart Note [facility] Kidney Transplant at [place] [id number] [facility] [address] [place] [address] Ana Santoyo RN Social History Tobacco Use Types Packs/Day [...] have Coronavirus / COVID-19? No / Unsure 09/21/2021 11:53 AM EST documented as of this encounter Plan of Treatment Upcoming Encounters Date Type Department Care Team (Late st Contact Info) Description 07/15/2024 9:00 AM EST Hospital Encounter [facility] Interventional Radiology [address] [place] [phone] Herve Carrillo MD [address] [facility] [address] [place] [phone] documented as of this encounter Visit Diagnoses Not on filedocumented in this encounter Additional Health Concerns Assessment Noted Time PHQ-9 Depression Total Score: 0 12/06/19 18 3:00 PM EDT documented as of this encounter Care Teams Manager Merchandising Relationship Specialty Start Date End Date System, Provider Not In PCP - General 06/24/21 12/21/21 Maile Valles, RN Txp Post Coordinator Transplant Hepatology 11/07/17 Jack Ordoñez MD [address] [place] [phone] Consulting Physician Transplant Hepatology 01/05/18 Estephania Sharif, aDrrianD Pharmacist Pharmacist 11/11/19 documented as of this encounter
--- OUTSIDE RECORDS SUMMARY | 2024-07-12 12:34 | XMS_ITS | Encounter Summary ---
Author Organization [facility] Address [address] [place] [address] Care Team Providers Care Concrete Vibrator Operator Name Role Phone Maile Valles RN Unavailable Unavail able Jack Ordoñez MD Unavailable [phone] Estephania Sharif PharmD Unavailable Christine vailable [...] release of HIV test results or diagnoses. [id number] Reason for Visit * Reason Comments Kidney Transplant Pre-evaluation Encounter Details Date Type Department Care Team (Late st Contact Info) Description 09/21/2021 12:30 PM EST Office Visit [facility] Kidney Transplant at [facility] [address] [facility] [address] [place] [address] Unknown, Attending Provider Ami Rossi MD [address] [facility] [address] [place] [address] Pre-transplant evaluation for kidney transplant; Hypertension, unspecified type; Pulmonary HTN ([facility]); JC (obstructive sleep apnea); Type 2 diabetes mellitus with chronic kidney disease on chronic dialysis, unspecified whether halfway insulin use ([facility]); Routine history and physical examination of adult Social History Tobacco Use Types Packs/Day Years [...] Sign Reading Time Taken Comments Blood Pressure 146/100 09/21/2021 12:24 PM EST Pulse 87 09/21/2021 12:24 PM EST Temperature 36.9 ??C (98.5 ??F) 09/21/2021 12:[address] Respiratory Rate 18 09/21/2021 12:24 PM EST Oxygen Saturation 95% 09/21/2021 12:24 PM EST Inhaled Oxygen Concentration 95% 09/21/2021 1 2:24 PM EST Weight 124.3 kg (274 lb) 09/21/2021 12:24 PM EST Height 175.3 cm (5' 9 ) 09/21/2021 12:24 PM EST Body Mass Index 40.46 09/21/2021 12:24 PM EST documented in this encounter Progress Notes * Ana Santoyo RN - 09/21/2021 12:30 PM EST Patient participated in education class/Online Educational video on early date prior to multidisiplinary team meeting. Patient was seen during pre-kidney transplant evaluation clinic by coordinator and all questions answered. The evaluation process, selection criteria, risk and benefits of transplant reviewed. Informed consent and outcomes data reviewed. Potential contraindications for transplantation reviewed with patient. Living donor champion program reviewed. COVID Vaccine received Moderna x1 dose Pre-Operative Screening Questionnaire for Kidney Transplant Recipients Do you have to stop when walking up two flights of stairs or other physical exertion because of severe shortness of breath or chest pain? n Have you ever had known heart problems or procedures? n ???..If yes, do you have a pacemaker or defibrillator? n ???If yes,have you ever had heart surgery? n Do you have lung problems that limit your daily activity? n ???..If yes, are the lung problems new or worsening? n ???..If yes, do you use oxygen? n Have you ever had a major bleeding event caused by a bleeding disorder? n Have you ever had a blood clot in your lungs? n ???..If yes, when did it occur? n Have you or any family members had a problem with anesthesia such as high fever or prolonged weakness? n Have you ever been told that it is difficult to place a breathing tube in you? n * Ami Rossi MD - 09/21/2021 12:30 PM EST Name: Aiden Stauffer Jr. Date of : 1975 Date of Service: 09/21/2021 Reason for Visit: Pre Transplant Evaluation History of Present Illness: HPI Pt presents today for evaluation for a kidney transplant. Mr. Stauffer is a 46 y.o. 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 On HD since 09/26/19 via LLE fistula. He is well known to me with ESLD and OLT in 2018. He has done well from liver perspective. He has gained weight after his back went out. He is otherwise active. Hx of Patient Active Problem List Diagnosis ??? Essential (primary) hypertension ??? Type 2 diabetes mellitus with diabetic chronic kidney disease (CMS Dx) ??? Liver transplanted (CMS Dx) ??? Immunosuppression for liver transplant (CMS Dx) ??? Abnormal stress test ??? ESRD (end stage renal disease) (CMS Dx) ??? Prophylaxis for cytomegalovirus ??? Anemia, unspecified [...] hernia ??? Pre-transplant evaluation for kidney transplant . 0 Kidney biopsy. mulitple blood transfusions. 1 previous transplants. 29 Diabetes (Age of Onset) Urine Output: cup a day On ROS, Aiden Stauffer . states he feels good . Denies Shortness of breath/Chest pain Education: Patient has previously attended education class. Written education material given today for multi listing and informed consents. Kidney Champions identified as . Potential donors identified: yes. Referred by Enrique Millan. Review of Systems Histories: Past Medical History: Past Medical History: Diagnosis Date ??? [...] osteomyelitis (CMS Dx) ??? Vitamin D deficiency Surgical History: Past Surgical History: Procedure Laterality Date ??? ABDOMINAL SURGERY ??? BACK SURGERY 04/2020 [facility] ??? CREATION AV FISTULA ??? ESOPHAGOGASTRODUODENOSCOPY [...] ??? TYMPANOSTOMY TUBE PLACEMENT 07/2020 Family History: Family History Problem Relation Age of Onset ??? Diabetes Sister ??? Anesthesia problems Neg Hx Social History: Social History Socioeconomic History ??? Marital status: [...] on file Housing Stability: Not on file Physical Examination: There were no vitals taken for this visit. Physical Exam AAOx3 No rashes Big abdomen and large hernia. 2+ pulses but his abd is large at the girth. Allergies: Codeine sulfate and Codeine Medications: Current Outpatient Medications Medication Sig ??? ALPRAZolam (XANAX) 0.5 MG tablet Take 0.5 mg by mouth if needed for Sleep. ??? aspirin 81 MG chewable tablet Chew 1 tablet (81 mg total) by mouth daily with breakfast. ??? blood sugar diagnostic Strp Use to test blood sugar up to 4 times a day. Diagnosis for use: E 9.65. For use with One Touch Verio meters. ??? blood-glucose meter (iXpertUCH VERIO SYSTEM) [facility] Use as instructed. ??? carBAMazepine (TEGRETOL) 200 mg tablet Take 200 mg by mouth 2 times a day. ??? cloNIDine HCL (CATAPRES) 0.1 MG tablet Take 1 tablet (0.1 mg total) by mouth 2 times a day. ??? cyclobenzaprine (FLEXERIL) 10 MG tablet Take 10 mg by mouth 3 times a day as needed for Muscle spasms. ??? cycloSPORINE modified (CYCLOSPORINE MODIFIED) 25 MG capsule Take 4 capsules (100 mg total) by mouth 2 times a day. ??? doxazosin (CARDURA) 8 MG tablet Take 8 mg by mouth at bedtime. ??? entecavir (BARACLUDE) 0.5 MG tablet Take 1 tablet (0.5 mg total) by mouth every 7 days. ??? ergocalciferol (VITAMIN D2) 50,000 unit capsule Take 50,000 Units by mouth every Monday, , and Monday. ??? fluticasone propionate (FLONASE) 50 mcg/actuation nasal spray Use into each nostril. ??? gabapentin (NEURONTIN) 100 MG capsule Take 1 capsule (100 mg total) by mouth 2 times a day. ??? hydrALAZINE (APRESOLINE) 100 MG tablet Take 1 tablet (100 mg total) by mouth every 8 hours. ??? insulin glargine (LANTUS) 100 unit/mL injection Inject subcutaneously at bedtime. ??? insulin NPH isoph U-100 human (HUMULIN N NPH INSULIN KWIKPEN) 100 unit/mL (3 mL) InPn Inject subcutaneously 12 units in the AM and 6 units in the PM. (Patient taking differently: Inject subcutaneously 18 units in the AM and 15 units in the PM. ) ??? lancets ([employer] LearningTOUCH DELICA LANCETS) 33 gauge [facility] Use 1 strip as directed 4 times daily before meals and at bedtime. ??? melatonin 3 mg Tab Take 2 tablets (6 mg total) by mouth at bedtime. ??? metoprolol tartrate (LOPRESSOR) 25 MG tablet Take 1 tablet (25 mg total) by mouth 2 times a day. ??? mycophenolate (CELLCEPT) 250 mg capsule Take 1 capsule (250 mg total) by mouth 2 times a day. ??? NIFEdipine (PROCARDIA-XL) 90 MG (OSM) 24 [...] the morning and at bedtime. ) ??? pen needle, diabetic 32 gauge x Ndle Use as directed to inject insulin 4 times daily. ??? phentermine 15 MG capsule Take 15 mg by mouth every morning. ??? polyethylene glycol (MIRALAX) 17 gram packet Take 17 g by mouth daily as needed (mild constipation (no BM for 24 hrs)). ??? polyethylene glycol (MIRALAX) 17 gram/dose powder Take 17 g by mouth 2 times a day. ??? QUEtiapine (SEROQUEL) 25 MG tablet Take 0.5 tablets (12.5 mg total) by mouth at bedtime. No current facility-administered medications for this visit. Review of Lab Results: Lab Results Component Value Date WBC 3.6 (L) 07/15/2021 HGB 11.9 (L) 07/15/2021 PLT 213 07/15/2021 NA 139 07/15/2021 K 5.9 (H) 07/15/2021 CL 97 (L) 07/15/2021 CO2 29 07/15/2021 BUN 57 (H) 07/15/2021 CREATININE 9.11 (H) 07/15/2021 EGFR 5 11/19/2020 GLUCOSE 107 (H) 07/15/2021 CALCIUM 9.6 07/15/2021 PHOS 5.6 (H) 07/15/2021 MG 2.1 07/15/2021 ALBUMIN 4.8 07/15/2021 ALBUMIN 4.8 07/15/2021 ALT 9 07/15/2021 AST 13 07/15/2021 BILITOT 0.5 07/15/2021 ALKPHOS 141 (H) 07/15/2021 LDL See Note 07/15/2021 HDL 32 (L) 07/15/2021 TRIG 606 (H) 07/15/2021 LIPASE 139 (H) 04/26/2018 HGBA1C 6.5 (H) 07/15/2021 Assessment: Mr. 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 He needs to lose weight maybe up to 40lbs. 46 y/o male with ESRD here for transplant evaluation. The risks and benefits, rationale, treatment plan and multidisciplinary evaluation of kidney transplantation were discussed with the patient. Theage specific survival of kidney transplantation, as compared to dialysis, was discussed with the patient. Specifically, I explained the advantage of living donor kidney transplantation in terms of graft survival and outcomes. I explained the advantages of living donation in regards to a longer graft survival compared donation, a planned elective operation and improved perioperative outcomes related to a planned operation with an optimal graft. I also counseled the patient on various donor kidneys in terms of standard criteria donors (SCD), donors after cardiac (DCD), extended criteria donors (MANUFACTURING PLANNER) and PHS high risk donors. This risks and benefits of PHS increased risk organs were discussed at length and risks included risk of hepatitis B, C and HIV of 1%. We discussed organ allocation and waiting times in this region. I also explained the filler leaf cutter long risks of transplantation and immunosuppression including viral infection and cancer both solid organ and lymphoma. I counseled the patient about the importance of identifying live donor kidney champion, which will help increase their chances of finding a live donor. I reviewed our SRTR data as well as national SRTR data for kidney transplantation. We discussed the benefits of kidney transplantation including the improvement in quality of life. We discussed the importance of compliance post transplantation forgraft survival. We discussed the risks involved in performing a kidney transplant operation which includes, but is not limited to, a 1% risk of blood clot in either donor renal artery or vein; 3% risk of ureteral anastomotic complications (leak or stricture); and 5-10% risk of wound complications (superficial/deepinfection, fascial dehiscence, hernia). The patient understands and wishes to proceed with evaluation. The patient will be evaluated and will be presented at our multidisciplinary kidney transplant conference. I reviewed the review of systems and agree made any additional changes. Renal Replacement: Yes since 2019. Glycemic Status: DM Cardiovascular Status: Needs workup. PVD Status: Does the patient have symptomatic PVD? No Prior Malignancy: None Sensitizing Events: Just liver transplant Potential Donors: 2 sons. Transplant Education: Mr. Stauffer participated in a multidisciplinary transplant education During this visit he met with various faculty members of the division of transplantation who addressed his various questions and concerns. We discussed the risks and benefits of transplant, as well as identifying potential donors to facilitate the possibility of a living donor transplant which provides the best outcome. Plan: He should be an excellent candidate But needs to lose weight. He will. I know him well. Total time spent with patient 45 minutes face to face in total. This did not include time spent (15minutes) reviewing the films, discussing care with the referring doctor and discussion with our multidisciplinary team. Ami Rossi MD, [facility] diesel power shovel operator Mechanic/Welder, Transplantation [facility] * Lucia Dillard MA - 09/21/2021 12:30 PM EST Attached media from the original note were not included. documented in this encounter Plan of Treatment Upcoming Encounters Date Type Department Care Team (Late st Contact Info) Description 07/15/2024 9:00 AM EST Hospital Encounter [facility] Interventional Radiology [address] [place] [address] Herve Carrillo MD [address] [facility] [address] [place] [address] documented as of this encounter Procedures Procedure Name Priority Date/Time Associated Diagnosis Comments ECG 12-LEAD (MUSE) Routine 09/21/2021 12 :31 PM EST Pre-transplant evaluation for kidney transplant Hypertension, unspecified type Pulmonary HTN ([facility]) JC (obstructive sleep apnea) Type 2 diabetes mellitus with chronic kidney disease on chronic dialysis, unspecified whether halfway insulin use (CMS-HCC) Routine history and physical examination of adult documented in this encounter Results * ECG 12 lead (MUSE) (09/21/2021 12:31 PM EST) 09/21/2021 12:3 1 PM EST Narrative MUSE - 09/22/2021 11:45 AM EST Ventricular Rate: ??90 ??BPM Atrial Rate: ??90 ??BPM P-R Interval: ??200 ??ms QRS Duration: ??108 ??ms QT: ??400 ??ms QTc: ??489 ??ms P Kinde: ??64 ??degrees R Kinde: ??56 ??degrees T Kinde: ??66 ??degrees Diagnosis Line: ??NORMAL SINUS RHYTHM WITH SINUS ARRHYTHMIA ^ POSSIBLE LEFT ATRIAL ENLARGEMENT ^ PROLONGED QT ^ ABNORMAL ECG ^ COMPARED TO THE ECG OF 14-JUL-2020 22:15, ^ THERE IS NO SIGNIFICANT CHANGE ^ Confirmed by JE PEREZ MD ([id number]) on 09/22/2021 11:45:22 AM Destin Rawls MD ECG ORDERABLES Final Result MUSE documented in this encounter Visit Diagnoses Diagnosis Pre-transplant evaluation for kidney transplant Hypertension, unspecified type Pulmonary HTN (CMS-HCC) JC (obstructive sleep apnea) Obstructive sleep apnea (adult) (pediatric) Type 2 diabetes mellitus with chronic kidney disease on chronic dialysis, unspecified whether filler leaf cutter long insulin use (CMS-HCC) Routine history and physical examination of adult documented in this encounter Additional Health Concerns Assessment Noted Time PHQ-9 Depression Total Score: 0 12/06/19 18 3:00 PM EDT documented as of this encounter Care Teams Concrete Vibrator Operator Relationship Specialty Start Date End Date System, Provider Not In PCP - General 06/24/21 12/21/21 Maile Valles, JANA Txp Post Coordinator Transplant Hepatology 11/07/17 Jack Ordoñez MD [facility] [place] [phone] Consulting Physician Transplant Hepatology 01/05/18 Estephania Sharif, PharmD Pharmacist Pharmacist 11/11/19 documented as of this encounter
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
--- OUTSIDE RECORDS SUMMARY | 2024-07-12 12:34 | XMS_ITS | Encounter Summary ---
Author Organization [facility] Address [address] [place] [address] Care Team Providers Care Prestressed Concrete Laborer Name Role Phone Maile Valles RN Unavailable Unavail able Jack Ordoñez MD Unavailable [phone] Estephania Sharif PharmD Unavailable Christine vailable [...] release of HIV test results or diagnoses. [id number] Health Encounter Details Date Type Department Care Team (Late st Contact Info) Description 09/21/2021 1:30 PM EST Office Visit [facility] Transplant at [facility] [address] [facility] [address] [place] [address] Marcelino Montalvo III, MD [address] [facility] [address] [place] [address] Incisional hernia, without obstruction or gangrene (Primary [...] Notes * Marcelino Montalvo III, MD - 09/21/2021 1:30 PM EST Hepatobiliary Surgery Evaluation and Note Patient: Aiden Stauffer Jr. Age: 46 y.o. Reason for Visit: incisional hernia HPI: A 46 y.o. male with history of SAL cirrhosis s/p OLT 2017. Developed renal failure post transplantand now on dilaysis. Being evaluated for kidney txp. Has two potential living donors. Has large central incisional hernia at junction of hockey stick liver transplant incision. Hernia is painful and desires repair. Trying to loose weight. No obstructive symptoms. Review of Systems: Review of systems performed. See REBEKAH HERNANDEZ review. Vital Signs: BP Readings from Last 3 Encounters: 09/21/21 (!) 146/100 07/15/21 (!) 170/94 10/15/20 (!) 157/93 Wt Readings from Last 3 Encounters: 09/21/21 (!) 274 lb (124.3 kg) 08/26/21 (!) 263 lb 7.2 oz (119.5 kg) 07/15/21 (!) 266 lb 12.8 oz (121 kg) BMI: Estimated body mass index is 40.46 kg/m?? as calculated from the following: Height as of an earlier encounter on 09/21/21: 5' 9 (1.753 m). Weight as of an earlier encounter on 09/21/21: 274 lb (124.3 kg). BSA: Estimated body surface area is 2.46 meters squared as calculated from the following: Height as of an earlier encounter on 09/21/21: 5' 9 (1.753 m). Weight as of an earlier encounter on 09/21/21: 274 lb (124.3 kg). There were no vitals filed for [...] ??? Vitamin D deficiency Past Surgical History: Past Surgical History: Procedure Laterality Date ??? ABDOMINAL SURGERY ??? BACK SURGERY 04/2020 [facility] ??? CREATION AV FISTULA ??? [...] on file Housing Stability: Not on file Medications: Current Outpatient Medications Medication Sig ??? ALPRAZolam Take 0.5 mg by mouth if needed for Sleep. ??? aspirin Chew 1 tablet (81 mg total) by mouth daily with breakfast. ??? blood sugar diagnostic Use to test blood sugar up to 4 times a day. Diagnosis for use: E 9.65. For use with One Touch Verio meters. ??? blood-glucose meter Use as instructed. ??? carBAMazepine Take 200 mg by mouth 2 times a day. ??? cloNIDine HCL Take 1 tablet (0.1 mg total) by mouth 2 times a day. ??? cyclobenzaprine Take 10 mg by mouth 3 times a day as needed for Muscle spasms. ??? cycloSPORINE modified Take 4 capsules (100 mg total) by mouth 2 times a day. ??? doxazosin Take 8 mg by mouth at bedtime. ??? entecavir Take 1 tablet (0.5 mg total) by mouth every 7 days. ??? ergocalciferol Take 50,000 Units by mouth every Monday, , and Monday. ??? fluticasone propionate Use into each nostril. ??? gabapentin Take 1 capsule (100 mg total) by mouth 2 times a day. ??? hydrALAZINE Take 1 tablet (100 mg total) by mouth every 8 hours. ??? insulin glargine Inject subcutaneously at bedtime. ??? HumuLIN N NPH Insulin KwikPen Inject subcutaneously 12 units in the AM and 6 units in the PM. (Patient taking differently: Inject subcutaneously 18 units in the AM and 15 units in the PM. ) ??? lancets Use 1 strip as directed 4 times daily before meals and at bedtime. ??? melatonin Take 2 tablets (6 mg total) by mouth at bedtime. ??? metoprolol tartrate Take 1 tablet (25 [...] at bedtime. ) ??? pen needle, diabetic Use as directed to inject insulin 4 times daily. ??? phentermine Take 15 mg by mouth every morning. ??? polyethylene glycol Take 17 g by mouth daily as needed (mild constipation (no BM for 24 hrs)). ??? polyethylene glycol Take 17 g by mouth 2 times a day. ??? QUEtiapine Take 0.5 tablets (12.5 mg total) by mouth at bedtime. No current facility-administered medications for this visit. Allergies: Allergies Allergen Reactions ??? Codeine Sulfate Hyper ??? Codeine Other (See Comments) Becomes hyper Physical Exam: General: no apparent distress, conversant Eyes: anicteric sclera, moist conjunctiva, pupils equal and round reactive to light HENT: atraumatic mucous membranes moist Neck: trachea midline, full range of motion, no thyromegaly or adenopathy Cardiac: regular rate and rhythm, no murmurs, rubs, and gallops Respiratory: clear to auscultation bilaterally, normal respiratory effort Gastrointestinal: abdomen is soft nontender, central obesity, reducible incisional hernia Extremity: warm, no clubbing, cyanosis, or edema Lymph: no palpable lymphadenopathy Skin: no rashes or ulcers, normal temperature and turgor Psych: appropriate affect, alert and oriented to person, place, and time Labs: Lab name 09/21/21 1454 HEMOGLOBIN 11.7* HEMATOCRIT 35.0* MEAN CORPUSCULAR VOLUME 101.2* PLATELETS 245 SODIUM 141 POTASSIUM 5.4* CHLORIDE 97* CO2 27 BUN 69* CREATININE 9.91* GLUCOSE 104* PHOSPHORUS 8.4* ALBUMIN 4.9 ALBUMINKID 4.9 CALCIUM 9.4 AST 15 ALT 7 BILIRUBIN TOTAL 0.5 ALK PHOS 114 Imaging: CT A/P (03/02/21) Atrophic bilateral k[place] kidneys. Postoperative changes from orthotopic liver transplant. 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 I have personally reviewed the imaging and have noted the followin-6 cm incisional hernia Assessment/Plan: A 46 y.o. male with history of SAL cirrhosis s/p liver transplant now with renal failure on iHD being evaluated for kidney txp with large incisional hernia. Had long talk today about management of incisional hernia after txp. BMI is currently 40.4 - he thinks he is carrying a little extra water and his actual dry weight should be 118 kg. Large amount of central obesity. He has been evaluated by [facility] before and was planned to undergo sleeve gastrectomybut this was put on hold secondary to prolonged hospitalization 2/2 spine infection. He is not interested in bariatric surgery at this time but wants to try and loose weight on his own. He needs to loose weight for kidney transplant and I would prioritize this over hernia repair. [place] goal weight loss to BMI < 35 but I think he she shows good progress and BMI is in 36 to 37range we can consider hernia repair. Will follow up on his weight loss progress. --- Tiffanie Montalvo III, MD Transplant Surgery (cell) principal consulting engineer Section of Transplantation [facility] 09/22/2021 10:16 AM documented in this encounter Plan of Treatment Upcoming Encounters Date Type Department Care Team (Late st Contact Info) Description 07/15/2024 9:00 AM EST Hospital Encounter [facility] Interventional Radiology [address] [place] [phone] Herve Carrillo MD [facility] [facility] [address] [place] [address] documented as of this encounter Visit Diagnoses Diagnosis Incisional hernia, without obstruction or gangrene- Primary documented in this encounter Additional Health Concerns Assessment Noted Time PHQ-9 Depression Total Score: 0 12/06/19 18 3:00 PM EDT documented as of this encounter Care Teams Prestressed Concrete Laborer Relationship Specialty Start Date End Date System, Provider Not In PCP - General 06/24/21 12/21/21 Maile Valles, JANA Txp Post Coordinator Transplant Hepatology 11/07/17 Jack Ordoñez MD [facility] [place] [phone] Consulting Physician Transplant Hepatology 01/05/18 Estephania Sharif, DarrianD Pharmacist Pharmacist 11/11/19 documented as of this encounter
--- OUTSIDE RECORDS SUMMARY | 2024-07-12 12:34 | XMS_ITS | Encounter Summary ---
Author Organization [facility] Address [address] [place] [address] Care Team Providers Care Paper Control Clerk Name Role Phone Maile Valles RN Unavailable Unavail able Jack Ordoñez MD Unavailable [phone] Estephania Sharif PharmD Unavailable Christine vailable System, Provider Not In Primary Care Provider Un available Edgar Fournier MD Primary Care Provider [phone] Source Comments This information has been disclosed [...] release of HIV test results or diagnoses. [id number] Reason for Visit * Reason Comments After Hours Call Encounter Details Date Type Department Care Team (Late st Contact Info) Description 09/06/2021 Telephone [facility] PATIENT SERVICES [address] [place] [address] Unknown, Attending Provider After Hours [...] encounter Miscellaneous Notes * Telephone Encounter - Cate Tellez - 09/06/2021 5:07 AM EST Patient Name: Aiden Stauffer Jr. [phone] Patient Date of : 1975 Relationship of Caller to Patient: Patient Patient of: Liver Txp Nature of Call: Patient had R side Abdominal pain last night. R side Abdominal pain is worse this morning Air Crew Officer Provider Contacted:Dillon Whitman - galileo provider to the patient Provider contacted via pager or cell physically impaired teacher Liver Txp number Time and Method: 5:07a Caller advised to call back in 30 minutes, if they do not hear from the provider on-call. Note was routed to the receiving on-call provider/pool. documented in this encounter Plan of Treatment Upcoming Encounters Date Type Department Care Team (Late st Contact Info) Description 07/15/2024 9:00 AM EST Hospital Encounter [facility] Interventional Radiology [address] [place] [phone] Herve Carrillo MD [address] [facility] [address] [place] [address] documented as of this encounter Visit Diagnoses Not on filedocumented in this encounter Additional Health Concerns Infection Onset Date Last Indicated Resolved Time Rule Out COVID-19 10/31/2021 10/31/2021 11/01/2021 6:40 AM EDT Rule Out COVID-19 03/16/2022 03/17/2022 03/17/2022 9:55 AM EDT Rule Out COVID-19 05/01/2022 05/01/2022 05/02/2022 4:02 PM EDT Rule Out C. difficile 11/05/2023 11/06/20232023 10:01 PM EDT Assessment Noted Time PHQ-9 Depression Total Score: 0 12/06/19 18 3:00 PM EDT documented as of this encounter Care Teams Paper Control Clerk Relationship Specialty Start Date End Date System, Provider Not In PCP - General 06/24/21 12/21/21 Edgar Fournier MD [address] [place] [address] [place] [address] PCP - General 12/22/21 Maile Valles, RN Txp Post Coordinator Transplant Hepatology 11/07/17 Jack Ordoñez MD [address] [place] [phone] Consulting Physician Transplant Hepatology 01/05/18 Estephania Sharif, DarrianD Pharmacist Pharmacist 11/11/19 documented as of this encounter
--- OUTSIDE RECORDS SUMMARY | 2024-07-12 12:34 | XMS_ITS | Encounter Summary ---
Author Organization [facility] Address [address] [place] [address] Care Team Providers Care Reinforcing Metal Worker Name Role Phone Maile Valles RN Unavailable [...] release of HIV test results or diagnoses. [id number] Health Encounter Details Date Type Department Care Team (Late st Contact Info) Description 10/06/[address] [facility] Kidney Transplant at [address] [place] [phone] Ana Santoyo RN Social History Tobacco [...] Telephone Encounter - Ana Santoyo RN - 10/06/2021 11:11 AM EST Called pt to go over decision of selection meeting again. Pt had called in with some questions fromprevious conversation. Had to [facility] for a return call back documented in this encounter Plan of Treatment Upcoming Encounters Date Type Department Care Team (Late st Contact Info) Description 07/15/2024 9:00 AM EST Hospital Encounter [facility] Interventional Radiology [address] [place] [address] Herve Carrillo MD [address] [facility] [address] Surgery [place] [address] documented as of this encounter Visit Diagnoses Not on filedocumented in this encounter Additional Health Concerns Assessment Noted Time PHQ-9 Depression Total Score: 0 12/06/19 18 3:00 PM EDT documented as of this encounter Care Teams Reinforcing Metal Worker Relationship Specialty Start Date End Date System, Provider Not In PCP - General 06/24/21 12/21/21 Maile Valles, JANA Txp Post Coordinator Transplant Hepatology 11/07/17 Jack Ordoñez MD [address] [place] [address] Consulting Physician Transplant Hepatology 01/05/18 Estephania Sharif, Wilbert Pharmacist Pharmacist 11/11/19 documented as of this encounter
--- OUTSIDE RECORDS SUMMARY | 2024-07-12 12:34 | XMS_ITS | Encounter Summary ---
Author Organization [facility] Address [address] [place] [id number] Care Team Providers Care Core Composer Machine Tender Name Role Phone Maile Valles RN [...] release of HIV test results or diagnoses. [id number] Encounter Details Date Type Department Care Team (Latest Contact Info) Description 10/31/2021 Travel Social History Tobacco Use Types Packs/Day [...] Description 07/15/2024 9:00 AM EST Hospital Encounter [facility] Interventional Radiology [address] [place] [phone] Herve Carrillo MD [address] [facility] [address] [facility] [place] [phone] documented as of this encounter Visit Diagnoses Not on filedocumented in this encounter Additional Health Concerns Infection Onset Date Last Indicated Resolved Time Rule Out COVID-19 10/31/2021 10/31/2021 11/01/2021 6:40 AM EDT Assessment Noted Time PHQ-9 Depression Total Score: 0 12/06/19 18 3:00 PM EDT documented as of this encounter Care Teams Core Composer Machine Tender Relationship Specialty Start Date End Date System, Provider Not In PCP - General 06/24/21 12/21/21 Maile Valles, RN Txp Post Coordinator Transplant Hepatology 11/07/17 Jack Ordoñez MD [address] [place] [phone] Consulting Physician Transplant Hepatology 01/05/18 Estephania Sharif, DarrianD Pharmacist Pharmacist 11/11/19 documented as of this encounter
--- OUTSIDE RECORDS SUMMARY | 2024-07-12 12:34 | XMS_ITS | Encounter Summary ---
Author Organization [facility] Address [address] [place] [address] Care Team Providers Care Violin Restorer Name Role Phone Maile Valles RN Unavailable Unavail able Jack Ordoñez MD Unavailable [phone] Estephania Sharif PharmD Unavailable Christine vailable [...] release of HIV test results or diagnoses. [id number] Reason for Visit * Reason Comments Advice Only Encounter Details Date Type Department Care Team (Late st Contact Info) Description 08/24/2021 Telephone [facility] Liver Transplant at [place] [id number] [facility] [address] [place] [phone] Anne Whitt MA Advice Only [...] Telephone Encounter - Maile Valles RN - 08/26/2021 7:35 AM EST Fenofibrate OK to take. Message sent via BitLe[employer]. * Telephone Encounter - Anne Whitt MA - 08/24/2021 11:34 AM EST Pt called to say that PCP put him on fenofibrate 1.34 mg daily for his cholesterol. Pt asking if okto take due to txp status. Asked to have [employer]Le[employer] message sent to him about the med. documented in this encounter Plan of Treatment Upcoming Encounters Date Type Department Care Team (Late st Contact Info) Description 07/15/2024 9:00 AM EST Hospital Encounter [facility] Interventional Radiology [address] [place] [phone] Herve Carrillo MD [address] [facility] [address] [place] [phone] documented as of this encounter Visit Diagnoses Not on filedocumented in this encounter Additional Health Concerns Assessment Noted Time PHQ-9 Depression Total Score: 0 12/06/19 18 3:00 PM EDT documented as of this encounter Care Teams Violin Restorer Relationship Specialty Start Date End Date System, Provider Not In PCP - General 06/24/21 12/21/21 Maile Valles, JANA Txp Post Coordinator Transplant Hepatology 11/07/17 Jack Ordoñez MD [address] [place] [phone] Consulting Physician Transplant Hepatology 01/05/18 Estephania Sharif, PharmD Pharmacist Pharmacist 11/11/19 documented as of this encounter
--- OUTSIDE RECORDS SUMMARY | 2024-07-12 12:34 | XMS_ITS | Encounter Summary ---
Author Organization [facility] Address [address] [place] [address] Care Team Providers Care Extension Service Specialist Name Role Phone Maile Valles RN [...] release of HIV test results or diagnoses. [id number] Health Encounter Details Date Type Department Care Team (Late st Contact Info) Description 10/04/2021 Chart Note [facility] Kidney Transplant at [place] [id number] [facility] [address] [place] [phone] Ana Santoyo RN Sent closure email, sent closing letter to pt., ALICIA and referring Social History Tobacco Use Types Packs/Day Years [...] as of this encounter Progress Notes * Ana Santoyo RN - 10/04/2021 9:30 AM EST Sent closure email, sent closing letter to pt., ALICIA and referring physician. documented in this encounter Plan of Treatment Upcoming Encounters Date Type Department Care Team (Late st Contact Info) Description 07/15/2024 9:00 AM EST Hospital Encounter [facility] Interventional Radiology [address] [place] [phone] Herve Carrillo MD [address] [facility] [address] [place] [phone] documented as of this encounter Visit Diagnoses Not on filedocumented in this encounter Additional Health Concerns Assessment Noted Time PHQ-9 Depression Total Score: 0 12/06/19 18 3:00 PM EDT documented as of this encounter Care Teams Extension Service Specialist Relationship Specialty Start Date End Date System, Provider Not In PCP - General 06/24/21 12/21/21 Maile Valles, JANA Txp Post Coordinator Transplant Hepatology 11/07/17 Jack Ordoñez MD [facility] [place] [phone] Consulting Physician Transplant Hepatology 01/05/18 Estephania Sharif, DarrianD Pharmacist Pharmacist 11/11/19 documented as of this encounter
--- OUTSIDE RECORDS SUMMARY | 2024-07-12 12:34 | XMS_ITS | Encounter Summary ---
Author Organization [facility] Address [address] [place] [address] Care Team Providers Care National Secretary Name Role Phone Maile Valles RN Unavailable [...] release of HIV test results or diagnoses. [id number] Health Encounter Details Date Type Department Care Team (Late st Contact Info) Description 09/08/2021 Telephone [facility] at [facility] [address] [facility] [address] [place] [address] Marilin Luo Social History Tobacco [...] * Telephone Encounter - Marilin Luo - 09/08/2021 9:01 AM EST Attempted to reach patient to schedule OV w/Dr. Montalvo to eval hernia. No answer. Unable to leave voicemail. My chart message sent to patient. documented in this encounter Plan of Treatment Upcoming Encounters Date Type Department Care Team (Late st Contact Info) Description 07/15/2024 9:00 AM EST Hospital Encounter [facility] Interventional Radiology [address] [place] [phone] Herve Carrillo MD [address] [facility] [address] [facility] [place] [phone] documented as of this encounter Visit Diagnoses Not on filedocumented in this encounter Additional Health Concerns Assessment Noted Time PHQ-9 Depression Total Score: 0 12/06/19 18 3:00 PM EDT documented as of this encounter Care Teams National Secretary Relationship Specialty Start Date End Date System, Provider Not In PCP - General 06/24/21 12/21/21 Maile Valles, JANA Txp Post Coordinator Transplant Hepatology 11/07/17 Jack Ordoñez MD [address] [place] [phone] Consulting Physician Transplant Hepatology 01/05/18 Estephania Sharif, DarrianD Pharmacist Pharmacist 11/11/19 documented as of this encounter
--- OUTSIDE RECORDS SUMMARY | 2024-07-12 12:34 | XMS_ITS | Encounter Summary ---
Author Organization [facility] Address [address] [place] [address] Care Team Providers Care Application Release Manager Name Role Phone Maile Valles RN Unavailable Unavail able Jack Ordoñez MD Unavailable [phone] Estephania Sharif PharmD Unavailable Christine vailable [...] release of HIV test results or diagnoses. [id number] Reason for Visit * Reason Comments Medication Refill Encounter Details Date Type Department Care Team (Late st Contact Info) Description 09/16/2021 Refill [facility] Liver Transplant at [facility] [address] [facility] [address] [place] [address] Jack Ordoñez MD [address] [phone] Social History Tobacco Use Types Packs/Day Years [...] Hospital Encounter [facility] Interventional Radiology [address] [place] [phone] Herve Carrillo MD [address] [facility] [address] Surgery [place] [phone] documented as of this encounter Visit Diagnoses Not on filedocumented in this encounter Additional Health Concerns Assessment Noted Time PHQ-9 Depression Total Score: 0 12/06/19 18 3:00 PM EDT documented as of this encounter Care Teams Application Release Manager Relationship Specialty Start Date End Date System, Provider Not In PCP - General 06/24/21 12/21/21 Maile Valles, JANA Txp Post Coordinator Transplant Hepatology 11/07/17 Jack Ordoñez MD [address] [place] [phone] Consulting Physician Transplant Hepatology 01/05/18 Estephania Sharif, Wilbert Pharmacist Pharmacist 11/11/19 documented as of this encounter
--- OUTSIDE RECORDS SUMMARY | 2024-07-12 12:34 | XMS_ITS | Encounter Summary ---
Author Organization [facility] Address [facility] [place] [address] Care Team Providers Care Servomechanism Assembler Name Role Phone Maile Valles RN Unavailable Unavail able Jack Ordoñez MD Unavailable [phone] Estephania Sharif PharmD Unavailable Christine vailable [...] release of HIV test results or diagnoses. [id number] Reason for Visit * Reason Comments Chest Pain High Potassium * Auth/Cert Specialty Diagnoses / Procedures Referred By Contac t Referred To Contact Emergency Medicine Diagnoses Hyperkalemia Pre-syncope Chest pain, unspecified type Procedures ER IP ADMIT [facility] Emergency Department [address] [place] [id number] Phone: tel: fax: Referral ID Status Reason Start Date Expiration Date Visits Re quested Visits Authorized [id number] 1 1 Encounter Details Date Type Department Care Team (Latest Contact Info) Description 10/31/2021 9:39 AM EDT - 11/01/2021 4:54 PM EDT Hospital Encounter [facility] Emergency Department [address] [place] [address] Rene Xiong MD [address] [facility] [address] Enrike Mccracken MD [address] [facility] [address] Thelma Tolbert MD [address] [facility] [place] [address] Chest pain, unspecified type (Primary Dx); Pre-syncope; Hyperkalemia; ESRD (end stage renal disease) on dialysis ([facility]) Discharge Disposition: Home or Self Care WITHOUT [...] Sign Reading Time Taken Comments Blood Pressure 112/62 11/01/2021 4:15 PM EDT Pulse 74 11/01/2021 4:15 PM EDT Temperature 36.3 ??C (97.4 ??F) 11/01/2021 4:15 PM ED T Respiratory Rate 16 11/01/2021 4:15 PM EDT Oxygen Saturation 90% 11/01/2021 12:40 PM EDT Inhaled Oxygen Concentration 90% 11/01/2021 1 2:40 PM EDT Weight - - Height - - Body Mass Index - - documented in this encounter Discharge Summaries * Мария Ewing RN - 11/01/2021 4:50 PM EDT [facility] Tripper/Back Hand Discharge Summary Patient name: Aiden Stauffer Jr. Patient : 1975 Age: 46 y.o. Gender: male Patient emergency contact: Extended Emergency Contact Information Primary Emergency Contact: Kym Stauffer Address: [facility] [place] [place] [address] [facility] Mobile Relation: Spouse Secondary Emergency Contact: Kimberly Stauffer [facility] Relation: Mother Attending provider: Thelma Tolbert MD Primary care physician: PROVIDER NOT IN SYSTEM The MD has indicated that the patient is ready for discharge home.The patient will be transported by at 6:00 PM Transfer Mode/Level of Care: Family DC Summary and HD Run Sheet faxed to [facility] The plan has been reviewed: Patient/Family Informed [...] Provider Preference Post-Discharge Goals Patient's Post-Discharge goals: pt will resum outpaitent dialysis Post Acute Care Provider Information: Community Services at Discharge Community Services at Home post discharge: Dialysis Dialysis Needs: Hemodialysis Name of Dialysis Company: [facility] Phone #: [phone]/FAX: Date of Next Outpatient Treatment: 11/03/21 HD days of week: 6:30 am HD time of day: M/W/F HD Transportation provided by: Pt drives self Following [facility]: Dr. Yana Ewing RN, [place] [phone] * Shan Snyder MD - 11/01/2021 11:32 AM EDT [facility] Department of Internal Medicine Inpatient Discharge Summary Patient: Aiden Stauffer Jr. CSN: [id number] Date of Admission: 10/31/2021 Date of Discharge: 11/01/2021 Attending Physician: Thelma Tolbert MD Diagnoses Present on Admission Past Medical [...] Active Hospital Problems Diagnosis Date Noted ??? Hyperkalemia [E87.5] 06/28/2019 Resolved Hospital Problems No resolved problems to display. Operations/Procedures Performed (include dates) Surgeries: Lines/Drains/Airways: Patient Lines/Drains/Airways Status Active Line / PIV Line Name Placement date Placement time Site Days Hemodialysis Access Arteriovenous Fistula Left Forearm -- -- Forearm Peripheral IV 10/31/21 Right Upper arm 10/31/21 2328 Upper arm less than 1 NHSN Device Days (10/02/2021 to 10/31/2021) Central line: 0 Urinary catheter: 0 Notable Imaging Studies: Results for orders placed during the hospital encounter of 10/31/21 X-ray Portable Chest Narrative EXAM: XR PORTABLE CHEST INDICATION: Chest pain, unspecified TECHNIQUE: 1 view of the chest with dual energy subtraction technique. COMPARISON: 05/29/2020 FINDINGS: Medical Devices: None. Heart and Mediastinum: Cardiomediastinal silhouette is enlarged. Lungs and Pleura: Low lung volumes with bronchovascular crowding. No focal consolidation, pleural effusion, or pneumothorax. Bones and soft tissues: No acute abnormalities. Other Procedures: Consulting Services (include reason) 1. Transplant nephrology - dialysis Allergies Tacrolimus Codeine Sulfate Codeine Discharge Medications Medication List ASK your doctor about these medications Quantity/Refills ALPRAZolam 0.5 MG tablet Commonly known as: XANAX Take 0.5 mg by mouth if needed for Sleep. Refills: 0 aspirin 81 MG chewable tablet Chew 1 tablet (81 mg total) by mouth daily with breakfast. Quantity: 30 tablet Refills: 5 blood sugar diagnostic Strp Use to test blood sugar up to 4 times a day. Diagnosis for use: E 9.65. For use with One Touch Verio meters. Quantity: 150 strip Refills: 5 blood-glucose meter Misc Commonly known as: OneTouch Verio Meter Use as instructed. Quantity: 1 each Refills: 0 calcium acetate(phosphat bind) 667 mg capsule Commonly known as: PHOSLO Take 667 mg by mouth 3 times a day with meals. Refills: 0 carBAMazepine 200 mg tablet Commonly known as: TEGRETOL Take 200 mg by mouth 2 times a day. Refills: 0 cinacalcet 60 MG tablet Commonly known as: SENSIPAR Take 60 mg by mouth daily with breakfast. Refills: 0 cyclobenzaprine 10 MG tablet Commonly known as: FLEXERIL Take 10 mg by mouth 3 times a day as needed for Muscle spasms. Refills: 0 cycloSPORINE modified 25 MG capsule [...] mouth every morning before breakfast. Refills: 0 gabapentin 100 MG capsule Commonly known as: NEURONTIN Take 1 capsule (100 mg total) by mouth 2 times a day. Quantity: 90 capsule Refills: 0 HumuLIN N NPH Insulin KwikPen 100 unit/mL (3 mL) Inpn Generic drug: insulin NPH isoph U-100 human Inject subcutaneously 12 units in the AM and 6 units in the PM. Quantity: 15 mL Refills: 5 hydrALAZINE 100 MG tablet Commonly known as: APRESOLINE Take 1 tablet (100 mg total) by mouth every 8 hours. Quantity: 120 tablet Refills: 0 insulin glargine 100 unit/mL injection Commonly known as: LANTUS Inject subcutaneously at bedtime. Refills: 0 lancets 33 gauge Misc Commonly known as: OneTouch Delica Lancets Use 1 strip as directed 4 times daily before meals and at bedtime. Quantity: 150 each Refills: 5 melatonin 3 mg Tab Take 2 tablets (6 mg total) by mouth at bedtime. Quantity: 30 tablet Refills: 0 metoprolol tartrate 25 MG tablet Commonly known as: LOPRESSOR Take 1 tablet (25 mg total) by mouth 2 times a day. Quantity: 60 tablet Refills: 0 mycophenolate 250 mg capsule Commonly known as: CELLCEPT Take 1 capsule (250 mg total) by mouth 2 times a day. Quantity: 180 capsule Refills: 1 NIFEdipine 90 MG (OSM) 24 hr tablet Commonly known as: PROCARDIA-XL Take 90 mg by mouth 2 times a day. Refills: 0 omega-3 fatty acids-fish oil 300-1,000 mg capsule Take 2 capsules by mouth 2 times a day with meals. Refills: 0 ondansetron 4 MG disintegrating tablet Commonly known as: ZOFRAN-ODT Take 4 mg by mouth every 8 hours as needed. Refills: 0 pantoprazole 40 MG tablet Commonly known as: PROTONIX Take 1 tablet (40 mg total) by mouth daily. Quantity: 30 tablet Refills: 0 pen needle, diabetic 32 gauge x 5/32 Ndle Use as directed to inject insulin 4 times daily. Quantity: 150 each Refills: 5 polyethylene glycol 17 gram packet Commonly known as: MIRALAX Take 17 g by mouth daily as needed (mild constipation (no BM for 24 hrs)). Ask about: Which instructions should I use? Quantity: 14 packet Refills: 0 sevelamer carbonate 800 mg tablet Commonly known as: RENVELA Take 1,600 mg by mouth 3 times a day with meals. Refills: 0 Vitamin D2 1,250 mcg (50,000 unit) capsule Generic drug: ergocalciferol Take 50,000 Units by mouth every Monday, , and Monday. Refills: 0 Reason for Admission Aiden Stauffer is a 46 y.o. male with PMH of ESRD on HD MWF, liver transplant in 2018, DM, GERD, JC who presented with chest pain and dyspnea. Hospital Course Active Hospital Problems Diagnosis Date Noted ??? Hyperkalemia [E87.5] 06/28/2019 Resolved Hospital Problems No resolved problems to display. #hyperkalemia #ESRD on HD MWF Pt receives HD MWF with his last session being on 10/29 where he reportedly had 4L removed. Pt reports feeling fluid overloaded with weight gain of 5 lbs after weighing himself on 10/31 morning. Started having chest pain and shortness of breath that led to his presentation at OSH and eventual transfer to [facility]. EKG showed peaked T waves. Xray unremarkable. Physical exam with mild TTP of upper abdomen. Received calcium gluconate, insulin + dextrose and lokelma in ED at [facility]. Consulted transplant nephrology for dialysis management. Pt received HD on 10/31 and 11/01. Repeat renal panel after HD on 10/31 showed K decrease from 6.1 to 4.4. Continued home phosphate binder, cinacalcet, sevelamer. ?? #chest pain #dyspnea Pt presented to OSH with complaints of CP, dyspnea, dizziness, lightheadedness and blurred vision. No hx of these symptoms prior. Chest pain is not reproducible on exam but does have mild TTP to upper abdomen. EKG without acute ischemic changes. Troponin 41 -> 44. BNP 348. Last echo from 05/2020showed mild LVH with EF of 55-60% without regional wall motion abnormalities. Chest pain could be referred GI pain as pt has a hx of GERD and takes a PPI. On 11/01 chest pain improved and had minimal dyspnea. Continued to monitor chest pain which improved after HD. Continued home PPI. ?? #s/p liver transplant in 2018 Consulted transplant nephrology on admission. Continued home cyclosporine, entecavir, cellcept. ?? #HTN Continued home nifedipine, metoprolol, hydralazine, doxazosin (therapeutic interchange to terazosin). Titrated BP meds as appropriate. ?? #DM Last Hgb A1c 6.0 09/21/21. Takes insulin sliding scale at home. Continued LDSSI here with bedtime SS.Adjusted for BG goal < 180. ?? #HLD Continued home fenofibrate ?? #peripheral neuropathy Continued home carbamazepine and gabapentin #iron deficiency anemia Started on iron supplementation Condition on Discharge 1. Functional Status: normal Describe limitations, if any: none 2. Mental Status: Alert/Oriented Describe limitations, if any: none 3. Diet / Tube Feeding / TPN: Diet Orders Report Diet renal starting at 10/31 1450 As listed above 4. Respiratory / Lines & Tubes / Wounds: None required 5. Discharge Physical Exam: BP 119/59 Pulse 72 Temp 97.7 ??F (36.5 ??C) (Oral) Resp 16 SpO2 90% Gen: Age-appropriate adult, NAD, alert. Laying in bed comfortably. HEENT: NCAT, PERRL, EOM grossly intact, sclera non-icteric, external ears appear normal. MMM. NECK: Soft, supple, trachea midline. CV: Normal rate, regular rhythm. S1 and S2 appropriate, no murmur appreciated. Distal pulses intact. No LE edema. No reproducible chest pain. PULM: CTAB. No wheezes/rales/rhonchi appreciated. Normal respiratory effort. ABD: soft, no TTP to upper abdomen, mild distension though large body habitus at baseline. No masses appreciated. MSK: No tenderness to extremities.. No obvious deformity. SKIN: Warm and dry. No obvious rashes or skin breakdown. NEURO: A&O x4, answers questions appropriately, moves all extremities spontaneously, no facial asymmetry. PSYCH: Appropriate affect and eye contact. Core Measure Documentation (As Applicable) Most Recent Wt: Disposition Home independent Follow-Up Appointments Future Appointments Date Time Provider Department Center 07/14/2022 1:15 PM Jack Ordoñez MD [facility] Patient Instructions / Follow-Up Items for Receiving Physician 1. Follow up with your PCP in 1-2 weeks. 2. Follow up with your other medical providers as previously scheduled. Signed: SHAN SNYDER MD 11/01/2021, 3:53 PM Cosigned by Thelma Tolbert MD at 11/01/2021 4:12 PM EDT Associated attestation - Thelma Tolbert MD - 11/01/2021 4:12 PM EDT Hospital Medicine Attending Supervision Note [facility] Aiden Stauffer Jr. was seen 11/01/21 on rounds with the resident physician. I personally interviewed and examined the patient. I reviewed the documentation by the resident and agree as documented unless otherwise stated below. -Macrocytic anemia/Folate deficiency: Folate supplementation started. -Anemia of chronic disease with iron deficiency: Started on po iron supplementation. -Other plan per resident's note. Thelma Tolbert MD, MPH Attending Physician Department of Internal Medicine Pager ID [phone] 4:10 PM, 11/01/2021 documented in this encounter Discharge Instructions * Discharge Instructions* Shan Snyder MD - 11/01/2021 4:04 PM EDT Aiden Stauffer Jr., Here are your hospital discharge instructions: --> You were hospitalized for: chest pain and hyperkalemia (elevated potassium). You presented initially due to chest pain and shortness of breath. In the ED you were found to have elevated potassium levels. You were given medications to lower your potassium as well as a run of dialysis on 10/31 which helped remove some fluid and reduce your potassium. You received another run of dialysis on 11/01. You had improvement in your chest pain and shortness of breath. --> We did not make any medication changes: continue taking your usual home medications. New medications: 1. We are sending you home with iron supplementation and folic acid vitamins. Please take them as instructed. --> Other Instructions: 1) Please follow up with your PCP in 1-2 weeks. They should be able to help you regarding your BiPAP mask. 2) Follow up with your other medical providers as previously scheduled. Thank you, Yellow Team Future Appointments Date Time Provider Department Center 07/14/2022 1:15 PM Jack Ordoñez MD [facility] Recent Lab Values for you and your doctors: Recent Labs 10/31/21 1113 BNP 348* Recent Labs 10/31/21 1006 10/31/21 2259 11/01/21 0710 NA 140 137 139 K 6.1* 4.4 5.3 CL 98 97* 98 CO2 28 27 29 BUN 75* 45* 53* CREATININE 10.79* 8.05* 8.46* GLUCOSE 128* 183* 145* CALCIUM 8.6 8.9 8.3* MG 1.9 -- 1.9 PHOS 5.4* 4.4 6.9* Recent Labs 10/31/21 1043 11/01/21 0710 WBC 4.7 5.3 HGB 9.4* 9.7* HCT 28.2* 28.6* PLT 215 207 Recent Labs 10/31/21 1113 AST 20 ALT 9 ALKPHOS 92 BILITOT 0.5 BILIDIRECT 0.0 No results for input(s): CHOLTOT, TRIG, HDL, CHOLHDL, LDL in the last 72 hours. Invalid input(s): VLDCHOL Recent Labs 10/31/21 1409 FOLATE 4.10* documented in this encounter Medications at Time [...] total) by mouth daily. 30 tablet 2 NIFEdipine (PROCARDIA-XL) 90 MG (OSM) 24 hr tablet Take 1 tablet (90 mg total) by mouth if needed. 8 polyethylene glycol (MIRALAX) 17 gram packet Take 17 g by mouth daily as needed (mild constipation (no BM for 24 hrs)). 14 packet 0 ALPRAZolam (XANAX) 0.5 MG tablet Take 1 tablet (0.5 mg total) by mouth if needed for Sleep. 02/08/20 23 blood sugar diagnostic Strp Use to test blood sugar up to 4 times a day. Diagnosis for use: E 9.65. For use with One Touch Verio meters. 150 strip 5 8 03/18/20 22 blood-glucose meter (ONETOUCH VERIO SYSTEM) [facility] Use as instructed. 1 each 8 03/18/20 22 calcium acetate,phosphat bind, (PHOSLO) 667 mg capsule Take 1 capsule (667 mg total) by mouth 3 times a day with meals. And snacks 09/05/19 24 cinacalcet (SENSIPAR) 60 MG tablet Take 60 mg by mouth daily with breakfast. 03/18/20 22 cyclobenzaprine (FLEXERIL) 10 MG tablet Take 10 mg by mouth 3 times a day as needed for Muscle spasms. 11/16/19 22 cycloSPORINE modified (CYCLOSPORINE MODIFIED) 25 MG capsule Take 4 capsules (100 mg total) by mouth 2 times a day. 720 capsule 1 02/21/2022 11:37 AM EDT 2 05/23/20 22 ergocalciferol (ERGOCALCIFEROL) 1,250 mcg (50,000 unit) capsule Take 50,000 Units by mouth every Monday, , and Monday. 03/18/20 22 fenofibrate micronized (LOFIBRA) 134 MG capsule Take 1 capsule (134 mg total) by mouth every morning before breakfast. 11/09/19 23 ferrous sulfate 325 (65 FE) MG tablet Take 1 tablet (325 mg total) by mouth daily with breakfast. 30 tablet 2 02/08/20 23 gabapentin (NEURONTIN) 100 MG capsuleIndications: Other osteonecrosis, left femur (CMS-HCC) Take 1 capsule (100 mg total) by mouth 2 times a day. 90 capsule 0 11/16/19 22 hydrALAZINE (APRESOLINE) 100 MG tablet Take 1 tablet (100 mg total) by mouth every 8 hours. 120 tablet 0 11/09/19 24 lancets (ONETOUCH DELICA LANCETS) 33 gauge [facility] Use 1 strip as directed 4 times daily before meals and at bedtime. 150 each 5 8 03/18/20 22 lidocaine (LIDODERM) 5 % Place 1 patch onto the skin daily as needed. 1 06/26/20 22 lisinopriL (PRINIVIL) 40 MG tablet Take 1 tablet by mouth daily. 0 03/18/20 22 melatonin 3 mg Tab Take 2 tablets (6 mg total) by mouth at bedtime. 30 tablet 0 03/16/20 22 metoprolol tartrate (LOPRESSOR) 25 MG tablet Take 1 tablet (25 mg total) by mouth 2 times a day. 60 tablet 0 03/16/20 22 mycophenolate (CELLCEPT) 250 mg capsule Take 1 capsule (250 mg total) by mouth 2 times a day. 180 capsule 1 09/21/2021 1:13 PM EST 1 11/12/19 22 omega-3 fatty acids-fish oil 300-1,000 mg capsule Take 2 capsules by mouth 2 times a day with meals. 03/18/20 22 ondansetron (ZOFRAN-ODT) 4 MG disintegrating tablet Take 1 tablet (4 mg total) by mouth every 8 hours as needed. 8 04/28/20 24 pantoprazole (PROTONIX) 40 MG tablet Take 1 tablet (40 mg total) by mouth daily. 30 tablet 0 03/18/20 22 pen needle, diabetic 32 gauge x 5/32 Ndle Use as directed to inject insulin 4 times daily. 150 each 5 8 03/18/20 22 sevelamer carbonate (RENVELA) 800 mg tablet Take 2 tablets (1,600 mg total) by mouth 3 times a day with meals. 09/05/19 24 documented as of this encounter Progress Notes * Joselito Garcia MD - 11/01/2021 2:18 PM EDT Brief note: Patient clinically doing fine. Improving symptoms. No other acute complaints or events Plan for 3 hours of dialysis today with 3 L of ultrafiltration Diagnosis End stage renal disease Duration of treatment (hours) 3 Dialyzer F180NR BFR 350 mL/min DFR 700 mL/min Dialysate Temperature (C) 36 K+ 2 mEq Ca++ 2.5 mEq Bicarb 35 mEq Na+ Other (please specify) 136 Dry Weight/Fluid Removal Goal (Liters) 3 L UF. ??Keep systolic blood pressure greater than 100 mmHg Access Site AVF Cosigned by Michael Hess MD at 11/01/2021 2:28 PM EDT Associated attestation - Michael Hess MD - 11/01/2021 2:28 PM EDT Agree. See attestation of consult note. * Rene Xiong MD - 10/31/2021 9:38 AM EDT ED Attending Attestation Note Date of service: 10/31/2021 This patient was seen by the resident physician. I have seen and examined the patient, agree with the workup, evaluation, management and diagnosis. The care plan has been discussed and I concur. I have reviewed the ECG and concur with the resident's interpretation. My assessment reveals a 46 y.o. male with complex past medical history including liver transplant, renal failure currently on dialysis with a full run on Monday presenting from outside hospital with hyperkalemia which is atypical for him, given stabilizing medications and will repeat as needed until dialyzed. Chest pain is atypical in nature associated with upper abdominal pain, reproducible on his right sternal border without concern for ACS underwent stable troponins and nonischemic EKG documented in this encounter H&P Notes * Shan Snyder MD - 10/31/2021 2:13 PM EDT Department of Internal Medicine History & Physical Patient: Aiden Stauffer Jr. [facility]: [id number] Chief Complaint Chest pain, shortness of breath History of Present Illness Aiden Stauffer Jr. is a 46 y.o. male with a history of ESRD on HD MWF, liver transplant in 2018, DM, GERD, JC, presenting to the hospital with chest pain and shortness of breath. Pt presented to outside ED with chest pain and shortness of breath. He started having chest pain inthe middle of the night last night when he woke up to use the bathroom. He also felt some shortnessof breath, dizziness and blurry vision. He continued to having this aching 7/10 chest pain throughout the day that led to him presenting to the ED. The chest pain is in his lower chest/upper abdomen. He has not found anything that makes the pain better or worse. He felt that the pain might be related to him being fluid overloaded so he weight himself and noted that he gained 5 liters since his last HD on 10/29 where they removed 4L. He does not typically feel short of breath with walking and does not require oxygen at home; at night he wears BiPAP mask to help with his snoring but has not been able to wear it recently. No fevers or chills. No cough, runny nose or congestion. He has felt some nausea but no vomiting, diarrhea or constipation. Has dribbles of urine. No rashes or itching. He has never felt this chest pain before and has never had a heart attack before. Pt said he was given aspirin at the outside ED before arriving at . Review of Systems Review of Systems Constitutional: Negative for chills and fever. HENT: Negative for congestion and ear discharge. Eyes: Positive for blurred vision. Negative for discharge. Respiratory: Negative for cough, shortness of breath and wheezing. Cardiovascular: Positive for chest pain. Negative for palpitations. Gastrointestinal: Positive for abdominal pain and nausea. Negative for constipation, diarrhea and vomiting. Genitourinary: Negative for dysuria and hematuria. Musculoskeletal: Negative for falls and joint pain. Skin: Negative for itching and rash. Neurological: Positive for dizziness and headaches. Past Medical History [...] ??? ABDOMINAL SURGERY ??? BACK SURGERY 04/2020 [facility] ??? CREATION AV FISTULA ??? ESOPHAGOGASTRODUODENOSCOPY [...] AM DAY PRIOR s/p liver transplant; Surgeon: Jya Talley MD; Location: CARDIAC CATH LABS; Service: [...] Diabetes Sister ??? Anesthesia problems Neg Hx Father of cancer (sarcoma). Social History Social History Socioeconomic History ??? [...] 10/18/17 Yes Bere Feng CNP blood-glucose meter (Corebook VERIO SYSTEM) [facility] Use as instructed. 10/18/17 Yes Bere Feng [...] 7 days. 01/05/21 YesJack Ordoñez MD ergocalciferol (VITAMIN D2) 50,000 unit capsule Take 50,000 Units by mouth every Monday, ,and Monday. Yes Historical Provider, fenofibrate micronized (LOFIBRA) 134 MG capsule Take 134 mg by mouth every morning before breakfast. Yes Historical Provider, hydrALAZINE (APRESOLINE) 100 MG tablet Take 1 tablet (100 mg total) by mouth every 8 hours. 06/25/20 Yes Jake Zavala MD lancets (Touchdown TechnologiesTOUCH DELICA LANCETS) 33 gauge Misc Use 1 strip as directed 4 times daily before meals and at bedtime. 10/18/17 Yes Bere Feng CNP melatonin 3 mg Tab Take 2 tablets (6 mg total) by mouth at bedtime. 06/25/20 Yes Jake Zavala MD metoprolol tartrate (LOPRESSOR) 25 MG tablet Take 1 tablet (25 mg total) by mouth 2 times a day. 06/25/20 Yes Jake Zavala MD mycophenolate (CELLCEPT) 250 mg capsule Take 1 capsule (250 mg total) by mouth 2 times a day. 06/22/21 Yes Jack Ordoñez MD NIFEdipine (PROCARDIA-XL) 90 [...] a day with meals. Yes Historical Provider, cyclobenzaprine (FLEXERIL) 10 MG tablet Take 10 mg by mouth 3 times a day as needed for Muscle spasms. Historical Provider, gabapentin (NEURONTIN) 100 MG capsule Take 1 capsule (100 mg total) by mouth 2 times a day. 06/25/20 Jake Zavala MD insulin glargine (LANTUS) 100 unit/mL injection Inject subcutaneously at bedtime. Historical Provider, insulin NPH isoph U-100 human (HUMULIN N NPH INSULIN KWIKPEN) 100 unit/mL (3 mL) InPn Inject subcutaneously 12 units in the AM and 6 units in the PM. Patient taking differently: Inject subcutaneously 18 units in the AM and 15 units in the PM. 06/25/20 Jake Zavala MD cloNIDine HCL (CATAPRES) 0.1 MG tablet Take 1 tablet (0.1 mg total) by mouth 2 times a day. Addison Viveros MD fluticasone propionate (FLONASE) 50 mcg/actuation nasal spray Use into each nostril. 11/12/19 10/31/21 Historical Provider, phentermine 15 MG capsule Take 15 mg by mouth every morning. 10/31/21 Historical Provider, polyethylene glycol (MIRALAX) 17 gram/dose powder Take 17 g by mouth 2 times a day. 07/15/21 10/31/21Jack Ordoñez MD QUEtiapine (SEROQUEL) 25 MG tablet Take 0.5 tablets (12.5 mg total) by mouth at bedtime. 06/25/20 10/31/21 Jake Zavala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 City/[facility]/ZIP Co de Phone Number [facility] [address] [place] [address] * Lipase (10/31/2021 1:41 PM EDT) Lipase 33 4 - 82 U/L 10/31/2021 1:5 8 PM EDT [facility] Plasma 10/31/2021 1:41 PM EDT 10/31/2021 1:47 PM EDT Thelma Tolbert MD LAB BLOOD ORDERABLES Final R esult Performing Organization Address City/[facility]/ZIP Co de Phone Number [facility] [address] [place] [address] * (ABNORMAL) Hepatitis B Surface Antibody, Quantitati (10/31/2021 1:23 PM EDT) HBSAB NUMBER 160.00(H) 0.00 - 7.99 mIU/mL 10/31/2021 2:36 PM EDT [facility] Hep B S Ab Reactive( A) Nonreactive 10/31/2021 2:36 PM EDT [facility] Serum 10/31/2021 1:23 PM EDT 10/31/2021 1:32 PM EDT [facility] - 10/31/2021 2:36 PM EDT Individual is considered immune to HBV infection. Joselito Garcia MD LAB BLOOD ORDERABLES Final Result Performing Organization Address [facility] Co de Phone Number [facility] [address] [place] [address] * (ABNORMAL) Hepatitis B Core Antibody (10/31/2021 1:23 PM EDT) Hep B Core Total Ab Reactive( A) Nonreactive 10/31/2021 2:40 PM EDT [facility] Comment: Health Department notified in accordance with reportable infectious disease guidelines. Health Department notified in accordance with reportable infectious disease guidelines. Serum 10/31/2021 1:23 PM EDT 10/31/2021 1:32 PM EDT [facility] - 10/31/2021 2:40 PM EDT A reactive final interpretation indicates presumptive evidence of HBV; anti-HBc antibodies were detected in the sample which suggests either on-going or previous HBV infection. Joselito Garcia MD LAB BLOOD ORDERABLES Final Result Performing Organization Address [facility] Co de Phone Number [facility] [address] [place] [address] * Hepatitis A IgM (10/31/2021 1:23 PM EDT) Hep A IgM Nonreactive Nonreactive 10/31/2021 2:22 PM EDT [facility] Serum 10/31/2021 1:23 PM EDT 10/31/2021 1:32 PM EDT [facility] - 10/31/2021 2:22 PM EDT IgM anti-HAV not detected. Does not exclude the possibility of exposure to or infection with HAV. ??Levels of IgM anti-HAV may be below the cut-off in early infection. Result [facility] Joselito Garcia MD LAB BLOOD ORDERABLES Final Result Performing Organization Address City/[facility]/ZIP Co de Phone Number [facility] [address] * Hepatitis C Antibody (10/31/2021 1:23 PM EDT) Pathologist [facility] HCV Ab Nonreactive Nonreactive 10/31/2021 2:32 PM EDT [facility] Comment:Health Department no tified in accordance with reportable infectious disease guidelines. Serum 10/31/2021 1:23 PM EDT 10/31/2021 1:32 PM EDT [facility] - 10/31/2021 2:32 PM EDT Antibodies to HCV not detected; does not exclude the possibility of exposure to HCV. Joselito Garcia MD LAB BLOOD ORDERABLES Final Result Performing Organization Address [facility] Co de Phone Number [facility] [address] [place] [address] * Hepatitis B surface antigen (10/31/2021 1:23 PM EDT) [facility] Hep B Surface Ag Nonreactive Nonreactive 10/31/2021 2:27 PM EDT [facility] Comment:Health Department no tified in accordance with reportable infectious disease guidelines. Serum 10/31/2021 1:23 PM EDT 10/31/2021 1:32 PM EDT [facility] - 10/31/2021 2:27 PM EDT Specimen is considered negative for HBsAg. Joselito Garcia MD LAB BLOOD ORDERABLES Final Result Performing Organization Address [facility]/ZIP Co de Phone Number [facility] [address] * Glucose POC Nursing (10/31/2021 1:05 PM EDT) POC Glucose 90 EXTERNAL Rene Xiong MD NURSING ASSESSMENT ORDERABLES - ONCE OR AT INTERVALS Final Result EXTERNAL * POC Glucose Monitoring Device (10/31/2021 1:05 PM EDT) POC Glucose Monitoring Device 90 70 - 100 mg/dL 10/31/2021 1:06 PM EDT [facility] Blood 10/31/2021 1:05 PM EDT 10/31/2021 1:06 PM EDT Enrike Mccracken MD POINT OF CARE TEST ORDERAB LES Final Result Performing Organization Address [facility]/ZIP Co de Phone Number [facility] [address] * 2019 Novel Coronavirus (CoVID-19), [place]-B (10/31/2021 12:34 PM EDT) SARS-CoV-2 Not Detected Not Detected 11/01/2021 6:40 AM EDT [facility] Comment: This test is an [...] ??Test results have been sent to the [facility] in accordance with state requirements. ?? For a fact sheet for healthcare providers, see https://www.fda.gov/media/858178/download. ??For a fact sheet for patients, see https://www.fda.gov/media/066587/download. Test LOINC ordered 54361-7 11/01/2021 6:40 AM EDT [facility] Device identifier [employer] (DIANA)_ ho [id number] 11/01/2021 6:40 AM EDT [facility] First Test Unknown 11/01/2021 6:40 AM EDT [facility] Healthcare employee Unknown 11/01/2021 6:40 AM EDT [facility] Symptomatic Unknown 11/01/2021 6:40 AM EDT [facility] Hospitalized Unknown 11/01/2021 6:40 AM EDT [facility] In ICU Unknown 11/01/2021 6:40 AM EDT [facility] Congregate Care Resident Unknown 11/01/2021 6:40 AM EDT [facility] Unknown 11/01/2021 6:40 AM EDT [facility] Nasopharyngeal Swab NASOPHARYNGEAL STRUCTURE / Unknown 10/31/2021 12:34 PM EDT 10/31/2021 2:03 PM EDT Narrative [facility] - 11/01/2021 6:40 AM EDT Does the patient have symptoms of Covid-19 (eg. Fever, dyspnea, cough, loss of smell)?->No Does the patient urgently (in <24 hours) require a surgery, invasive procedure, or cardiac stress test?->No Is the patient being admitted to labor and delivery in active labor?->No Does the patient fit any of these categories? (select all that apply)->None of the above us Genevieve Seo MD BODY FLUIDS AND STOOLS ORDERABL ES Final Result Performing Organization Address City/State/[facility] Co de Phone Number [facility] [address] * (ABNORMAL) Venous blood gas, Line/Syringe (10/31/2021 11:13 AM EDT) PH-Line Draw 7.36 7.32 - 7.42 10/31/2021 11:16 AM EDT [facility] PCO2-Line Draw 53(H) 41 - 51 mm Hg 10/31/2021 11:16 AM EDT [facility] PO2-Line Draw 57(H) 25 - 40 mm Hg 10/31/2021 11:16 AM EDT [facility] HCO3-Line Draw 30(H) 24 - 28 mmol/L 10/31/2021 11:16 AM EDT [facility] CO2 Content-Line Draw 32(H) 25 - 29 mmol/L 10/31/2021 11:16 AM EDT [facility] Base Excess-Line Draw 3.9(H) -2.0 - 3.0 mmol/L 10/31/2021 11:16 AM EDT [facility] %HBO2-Line Draw 85.0(H) 40.0 - 70.0 % 10/31/2021 11:16 AM EDT [facility] Carboxyhgb-Nemo e Draw 1.3 0.0 - 2.0 % 10/31/2021 11:16 AM EDT [facility] Comment: CARBOXYHEMOGLOBIN (CO) REFERENCE RANGES: Non-Smokers: ??<2 % ? Smokers: ??<8 % TOXIC: >20 % Methemoglobin- Line Draw 1.0 0.0 - 1.5 % 10/31/2021 11:16 AM EDT [facility] Reduced Hemoglobin-Nemo e Draw 12.7(H) 0.0 - 5.0 % 10/31/2021 11:16 AM EDT [facility] Venous, Line Draw 10/31/2021 11:13 AM EDT 10/31/2021 11:14 AM EDT us Genevieve Seo MD LAB BLOOD ORDERABLES Final Resu lt [facility] [address] * (ABNORMAL) High Sensitivity Troponin (10/31/2021 11:13 AM EDT) High Sensitivity Troponin 44(H) 0 - 20 ng/L 10/31/2021 11:40 AM EDT [facility] Serum 10/31/2021 11:1 3 AM EDT 10/31/2021 11:14 AM EDT Genevieve Seo MD LAB BLOOD ORDERABLES Final Resu lt Performing Organization Address [facility] Co de Phone Number [facility] [address] * Hepatic Function Panel (10/31/2021 11:13 AM EDT) Total Bilirubin 0.5 0.0 - 1.5 mg/dL 10/31/2021 11:35 AM EDT [facility] Bilirubin, Direct 0.0 0.0 - 0.4 mg/dL 10/31/2021 11:35 AM EDT [facility] Comment:HEMOLYSIS EVIDENT. R ESULTS MAY BE INFLUENCED. AST 20 13 - 39 U/L 10/31/2021 11:35 AM EDT [facility] ALT 9 7 - 52 U/L 10/31/2021 11:35 AM EDT [facility] Alkaline Phosphatase 92 36 - 125 U/L 10/31/2021 11:35 AM EDT [facility] Total Protein 7.0 6.4 - 8.9 g/dL 10/31/2021 11:35 AM EDT [facility] Albumin 4.2 3.5 - 5.7 g/dL 10/31/2021 11:35 AM EDT [facility] Bilirubin, Indirect 0.5 0.0 - 1.1 mg/dL 10/31/2021 11:35 AM EDT [facility] Plasma 10/31/2021 11:1 3 AM EDT 10/31/2021 11:14 AM EDT Genevieve Seo MD LAB BLOOD ORDERABLES Final Resu lt Performing Organization Address [facility]/ZIP Co de Phone Number [facility] [address] * (ABNORMAL) BNP (10/31/2021 11:13 AM EDT) BNP 348(H) 0 - 100 pg/mL 10/31/2021 11:39 AM EDT [facility] Comment: BNP may be increased in the presence of sacubitril/valsartan (Entresto). Please interpret accordingly. Plasma 10/31/2021 11:1 3 AM EDT 10/31/2021 11:14 AM EDT Genevieve Seo MD LAB BLOOD ORDERABLES Final Resu lt Performing Organization Address City/[facility] Co de Phone Number [facility] [address] * Bedside focused transthoracic echocardiogram (10/31/2021 10:51 AM EDT) Anatomical Region Laterality Modality Other 10/31/2021 10:5 1 AM EDT Narrative 11/10/2021 8:38 AM EDT Focused Echocardiogram Examination: ?Exam category: ??Clinically indicated ?Indication(s) for Exam: ?Select one or more indications: ??chest pain ?Findings: ?Cardiac activity: ??present ?Pericardial effusion: ??none ?Left ventricular systolic function: ??normal ?Right ventricular size: ??normal ?Signs of RV strain: ??none ?Right systolic function (TAPSE): ??not evaluated ?IVC: ??not evaluated ?Interpretation: ?No sonographic evidence of significant cardiac dysfunction, Technically limited study ?Attending Attestation: ?I (the Attending) was present when the images were obtained by the jackhammer splitter operator AND/OR I reviewed the images after they were obtained. ??I have reviewed the interpretation by the jackhammer splitter operator, made any necessary edits and agree with the interpretation as currently documented. Electronically signed by Rene Xiong on Wednesday, November 10, 2021 at 8:38 AM Genevieve Seo MD BEDSIDE US ORDERABLES Final Res ult * Differential (10/31/2021 10:43 AM EDT) Neutrophils Relative 68.9 40.0 - 80.0 % 10/31/2021 11:04 AM EDT [facility] Lymphocytes Relative 21.9 15.0 - 45.0 % 10/31/2021 11:04 AM EDT [facility] Monocytes Relative 7.9 0.0 - 12.0 % 10/31/2021 11:04 AM EDT [facility] Eosinophils Relative 1.1 0.0 - 8.0 % 10/31/2021 11:04 AM EDT [facility] Basophils Relative 0.2 0.0 - 1.0 % 10/31/2021 11:04 AM EDT [facility] nRBC 0 0 - 0 /100 WBC 10/31/2021 11:04 AM EDT [facility] Neutrophils Absolute 3,238 1,500 - 7,800 /uL 10/31/2021 11:04 AM EDT [facility] Lymphocytes Absolute 1,029 850 - 3,900 /uL 10/31/2021 11:04 AM EDT [facility] Monocytes Absolute 371 200 - 950 /uL 10/31/2021 11:04 AM EDT [facility] Eosinophils Absolute 52 15 - 500 /uL 10/31/2021 11:04 AM EDT [facility] Basophils Absolute 9 0 - 200 /uL 10/31/2021 11:04 AM EDT [facility] Whole Blood 10/31/2021 10:4 3 AM EDT 10/31/2021 10:53 AM EDT us Rene Xiong MD LAB BLOOD ORDERABLES Final Result Performing Organization Address City/State/[facility] de Phone Number [facility] [address] [place] [address] * (ABNORMAL) CBC (10/31/2021 10:43 AM EDT) WBC 4.7 3.8 - 10.8 10E3/uL 10/31/2021 11:04 AM EDT [facility] RBC 2.70(L) 4.20 - 5.80 10E6/uL 10/31/2021 11:04 AM EDT [facility] Hemoglobin 9.4(L) 13.2 - 17.1 g/dL 10/31/2021 11:04 AM EDT [facility] Hematocrit 28.2(L) 38.5 - 50.0 % 10/31/2021 11:04 AM EDT [facility] MCV 104.3(H) 80.0 - 100.0 fL 10/31/2021 11:04 AM EDT [facility] MCH 34.9(H) 27.0 - 33.0 pg 10/31/2021 11:04 AM EDT [facility] MCHC 33.5 32.0 - 36.0 g/dL 10/31/2021 11:04 AM EDT [facility] RDW 15.2(H) 11.0 - 15.0 % 10/31/2021 11:04 AM EDT [facility] Platelets 215 140 - 400 10E3/uL 10/31/2021 11:04 AM EDT [facility] MPV 7.4(L) 7.5 - 11.5 fL 10/31/2021 11:04 AM EDT [facility] Whole Blood 10/31/2021 10:4 3 AM EDT 10/31/2021 10:53 AM EDT us Rene Xiong MD LAB BLOOD ORDERABLES Final Result Performing Organization Address City/State/[facility] Co de Phone Number [facility] [address] * X-ray Portable Chest (10/31/2021 10:18 AM EDT) Anatomical Region Laterality Modality Chest Radiographic Sobia ging 10/31/2021 9:51 AM EDT Impressions 10/31/2021 10:47 AM EDT IMPRESSION: Cardiomegaly without acute findings. Approved by Bryson Wagner on 10/31/2021 10:29 AM EDT I have personally reviewed the images and I agree with this report. Report Verified by: Christa Pace MD at 10/31/2021 10:47 AM EDT Narrative 10/31/2021 10:47 AM EDT EXAM: XR PORTABLE CHEST INDICATION: Chest pain, unspecified TECHNIQUE: 1 view of the chest with dual energy subtraction technique. COMPARISON: 05/29/2020 FINDINGS: Medical Devices: None. Heart and Mediastinum: Cardiomediastinal silhouette is enlarged. Lungs and Pleura: Low lung volumes with bronchovascular crowding. No focal consolidation, pleural effusion, or pneumothorax. Bones and soft tissues: No acute abnormalities. Procedure Note Christa Pace MD - 10/31/2021 EXAM: XR PORTABLE CHEST INDICATION: Chest pain, unspecified TECHNIQUE: 1 view of the chest with dual energy subtraction technique. COMPARISON: 05/29/2020 FINDINGS: Medical Devices: None. Heart and Mediastinum: Cardiomediastinal silhouette is enlarged. Lungs and Pleura: Low lung volumes with bronchovascular crowding. No focalconsolidation, pleural effusion, or pneumothorax. Bones and soft tissues: No acute abnormalities. IMPRESSION: Cardiomegaly without acute findings. Approved by Bryson Wagner on 10/31/2021 10:29 AM EDT I have personally reviewed the images and I agree with this report. Report Verified by: Christa Pace MD at 10/31/2021 10:47 AM EDT Genevieve Seo MD IMG DIAGNOSTIC IMAGING ORDERABL ES Final Result * (ABNORMAL) High Sensitivity Troponin (10/31/2021 10:06 AM EDT) High Sensitivity Troponin 41(H) 0 - 20 ng/L 10/31/2021 10:43 AM EDT [facility] Serum 10/31/2021 10:0 6 AM EDT 10/31/2021 10:12 AM EDT Genevieve Seo MD LAB BLOOD ORDERABLES Final Resu lt [facility] [address] * (ABNORMAL) Phosphorus (10/31/2021 10:06 AM EDT) Phosphorus 5.4(H) 2.1 - 4.7 mg/dL 10/31/2021 10:39 AM EDT [facility] Plasma 10/31/2021 10:0 6 AM EDT 10/31/2021 10:12 AM EDT Genevieve Seo MD LAB BLOOD ORDERABLES Final Resu lt Performing Organization Address City/[facility]/ZIP Co de Phone Number [facility] [address] * Magnesium (10/31/2021 10:06 AM EDT) Magnesium 1.9 1.5 - 2.5 mg/dL 10/31/2021 10:39 AM EDT [facility] Plasma 10/31/2021 10:0 6 AM EDT 10/31/2021 10:12 AM EDT Genevieve Seo MD LAB BLOOD ORDERABLES Final Resu lt Performing Organization Address [facility] de Phone Number [facility] [address] * (ABNORMAL) Basic metabolic panel (10/31/2021 10:06 AM EDT) Sodium 140 133 - 146 mmol/L 10/31/2021 10:39 AM EDT [facility] Potassium 6.1(H) 3.5 - 5.3 mmol/L 10/31/2021 10:39 AM EDT [facility] Chloride 98 98 - 110 mmol/L 10/31/2021 10:39 AM EDT [facility] CO2 28 21 - 33 mmol/L 10/31/2021 10:39 AM EDT [facility] Anion Gap 14 3 - 16 mmol/L 10/31/2021 10:39 AM EDT [facility] BUN 75(H) 7 - 25 mg/dL 10/31/2021 10:39 AM EDT [facility] Creatinine 10.79(H) 0.60 - 1.30 mg/dL 10/31/2021 10:39 AM EDT [facility] Glucose 128(H) 70 - 100 mg/dL 10/31/2021 10:39 AM EDT [facility] Calcium 8.6 8.6 - 10.3 mg/dL 10/31/2021 10:39 AM EDT [facility] Osmolality, Calculated 314(H) 278 - 305 mOsm/kg 10/31/2021 10:39 AM EDT [facility] EGFR 5 10/31/2021 10:39 AM EDT [facility] Comment:As of 2021, the [...] Disease. Am J Kidney Dis. 2020. Plasma 10/31/2021 10:0 6 AM EDT 10/31/2021 10:12 AM EDT us Genevieve Seo MD LAB BLOOD ORDERABLES Final Resu lt [facility] [address] * (ABNORMAL) POC Glucose Monitoring Device (10/31/2021 10:00 AM EDT) [facility] Signature POC Glucose Monitoring Device 132(H) 70 - 100 mg/dL 10/31/2021 10:01 AM EDT [facility] Blood 10/31/2021 10:0 0 AM EDT 10/31/2021 10:01 AM EDT us Rene Xiong MD POINT OF CARE TEST ORDERABL ES Final Result Performing Organization Address [facility]/ZIP Co de Phone Number [facility] [address] [place] [address] * ECG for indication of dysrhythmia (10/31/2021 9:47 AM EDT) 10/31/2021 9:47 AM EDT Narrative MUSE - 10/31/2021 11:04 AM EDT Ventricular Rate: ??80 ??BPM Atrial Rate: ??80 ??BPM P-R Interval: ??214 ??ms QRS Duration: ??108 ??ms QT: ??422 ??ms QTc: ??486 ??ms P [place]: ??54 ??degrees R [place]: ??64 ??degrees T [place]: ??-78 ??degrees Diagnosis Line: ??INTERPRETATION NOT AVAILABLE--ECG READ IN ER ^ Confirmed by PHYSICIAN, ER ([id number]), editor house organ TITI BENÍTEZ ([id number]) on 10/31/2021 11:04:03 AM Genevieve Seo MD ECG ORDERABLES Final Result Performing Organization Address [facility] Co de Phone Number MUSE * POC eGFR (10/31/2021 9:02 AM EDT) [facility] POC eGFR 5 11/02/2021 7:22 AM EDT [facility] Comment:As of 2021, the estimated GFR [...] Kidney Disease. Am J Kidney Dis. 2020. Blood, Arterial 10/31/2021 9 :02 AM EDT 11/02/2021 7:22 AM EDT Thelma Tolbert MD LAB BLOOD ORDERABLES Final R esult Performing Organization Address City/[facility]/ZIP Co de Phone Number [facility] [address] * POC Sample Type (10/31/2021 9:02 AM EDT) Pathologist [facility] POC Sample Type Unspecified 11/02/2021 7:22 AM EDT [facility] Blood, Arterial 10/31/2021 9 :02 AM EDT 11/02/2021 7:22 AM EDT Thelma Tolbert MD POINT OF CARE TEST ORDERABLE S Final Result [facility] [address] * POC Anion Gap (10/31/2021 9:02 AM EDT) [facility] POC Anion Gap, Arterial 8 3 - 16 mmol/L 11/02/2021 7:22 AM EDT [facility] Blood, Arterial 10/31/2021 9 :02 AM EDT 11/02/2021 7:22 AM EDT Thelma Tolbert MD POINT OF CARE TEST ORDERABLE S Final Result [facility] [address] * (ABNORMAL) POC creatinine (10/31/2021 9:02 AM EDT) [facility] POC Creatinine 11.26(H) 0.60 - 1.30 mg/dL 11/02/2021 7:22 AM EDT [facility] Blood, Arterial 10/31/2021 9 :02 AM EDT 11/02/2021 7:22 AM EDT Thelma Tolbert MD POINT OF CARE TEST ORDERABLE S Final Result [facility] [address] * POC Chloride (10/31/2021 9:02 AM EDT) POC Chloride 104 98 - 110 mmol/L 11/02/2021 7:22 AM EDT [facility] Blood, Arterial 10/31/2021 9 :02 AM EDT 11/02/2021 7:22 AM EDT Thelma Tolbert MD POINT OF CARE TEST ORDERABLE S Final Result [facility] [address] * (ABNORMAL) POC Hemoglobin (10/31/2021 9:02 AM EDT) Pathologist [facility] POC Hemoglobin 9.5(L) 14.0 - 18.0 g/dL 11/02/2021 7:22 AM EDT [facility] Blood, Arterial 10/31/2021 9 :02 AM EDT 11/02/2021 7:22 AM EDT us Thelma Tolbert MD POINT OF CARE TEST ORDERABLE S Final Result Performing Organization Address [facility]/ZIP Co de Phone Number [facility] [address] [place] [address] * (ABNORMAL) POC hematocrit (10/31/2021 9:02 AM EDT) Pathologist [facility] POC Hematocrit 28.0(L) 40 - 52 % 11/02/2021 7:22 AM EDT [facility] Blood, Arterial 10/31/2021 9 :02 AM EDT 11/02/2021 7:22 AM EDT Thelma Tolbert MD POINT OF CARE TEST ORDERABLE S Final Result [facility] [address] [place] [address] * POC Lactate (10/31/2021 9:02 AM EDT) Pathologist [facility] POC Lactate 0.62 0.50 - 2.20 mmol/L 11/02/2021 7:22 AM EDT [facility] Blood, Arterial 10/31/2021 9 :02 AM EDT 11/02/2021 7:22 AM EDT Thelma Tolbert MD POINT OF CARE TEST ORDERABLE S Final Result [facility] [address] [place] [address] * (ABNORMAL) POC Glucose (10/31/2021 9:02 AM EDT) POC Glucose, Arterial 144(H) 70 - 100 mg/dL 11/02/2021 7:22 AM EDT [facility] Blood, Arterial 10/31/2021 9 :02 AM EDT 11/02/2021 7:22 AM EDT Thelma Tolbert MD POINT OF CARE TEST ORDERABLE S Final Result Performing Organization Address [facility]/ZIP Co de Phone Number [facility] [address] [place] [address] * (ABNORMAL) POC Ionized Calcium (10/31/2021 9:02 AM EDT) POC Ionized Calcium 4.10(L) 4.50 - 5.30 mg/dL 11/02/2021 7:22 AM EDT [facility] Blood, Arterial 10/31/2021 9 :02 AM EDT 11/02/2021 7:22 AM EDT Thelma Tolbert MD POINT OF CARE TEST ORDERABLE S Final Result [facility] [address] [place] [address] * (ABNORMAL) POC Potassium (10/31/2021 9:02 AM EDT) POC Potassium 5.4(H) 3.5 - 5.3 mmol/L 11/02/2021 7:22 AM EDT [facility] Blood, Arterial 10/31/2021 9 :02 AM EDT 11/02/2021 7:22 AM EDT Thelma Tolbert MD POINT OF CARE TEST ORDERABLE S Final Result Performing Organization Address City/[facility]/ZIP Co de Phone Number [facility] [address] * POC Sodium (10/31/2021 9:02 AM EDT) POC Sodium 140 136 - 146 mmol/L 11/02/2021 7:22 AM EDT [facility] Blood, Arterial 10/31/2021 9 :02 AM EDT 11/02/2021 7:22 AM EDT Thelma Tolbert MD POINT OF CARE TEST ORDERABLE S Final Result Performing Organization Address [facility]/ZIP Co de Phone Number [facility] [address] [place] [address] * (ABNORMAL) POC TCO2 (10/31/2021 9:02 AM EDT) POC TCO2, Arterial 30(H) 23 - 27 mmol/L 11/02/2021 7:22 AM EDT [facility] Blood, Arterial 10/31/2021 9 :02 AM EDT 11/02/2021 7:22 AM EDT Thelma Tolbert MD POINT OF CARE TEST ORDERABLE S Final Result [facility] [address] [place] [address] * (ABNORMAL) POC O2 SAT (10/31/2021 9:02 AM EDT) POC O2 Saturation, Arterial 68(L) 95 - 98 % 11/02/2021 7:22 AM EDT [facility] Blood, Arterial 10/31/2021 9 :02 AM EDT 11/02/2021 7:22 AM EDT Thelma Tolbert MD POINT OF CARE TEST ORDERABLE S Final Result Performing Organization Address [facility] Co de Phone Number [facility] [address] [place] [address] * POC Base Excess (10/31/2021 9:02 AM EDT) POC Base Excess, Arterial 3 -2 - 3 mmol/L 11/02/2021 7:22 AM EDT [facility] Blood, Arterial 10/31/2021 9 :02 AM EDT 11/02/2021 7:22 AM EDT Thelma Tolbert MD POINT OF CARE TEST ORDERABLE S Final Result Performing Organization Address [facility] Co de Phone Number [facility] [address] [place] [address] * (ABNORMAL) POC HCO3 (10/31/2021 9:02 AM EDT) POC HCO3, Arterial 28(H) 22 - 26 mmol/L 11/02/2021 7:22 AM EDT [facility] Blood, Arterial 10/31/2021 9 :02 AM EDT 11/02/2021 7:22 AM EDT Thelma Tolbert MD POINT OF CARE TEST ORDERABLE S Final Result Performing Organization Address [facility] Co de Phone Number [facility] [address] [place] [address] * (ABNORMAL) POC PO2 (10/31/2021 9:02 AM EDT) POC pO2, Arterial 37(LL) 80 - 100 mm Hg 11/02/2021 7:22 AM EDT [facility] Blood, Arterial 10/31/2021 9 :02 AM EDT 11/02/2021 7:22 AM EDT us Thelma Tolbert MD POINT OF CARE TEST ORDERABLE S Final Result Performing Organization Address [facility]/ZIP Co de Phone Number [facility] [address] [place] [address] * (ABNORMAL) POC PCO2 (10/31/2021 9:02 AM EDT) POC pCO2, Arterial 48(H) 35 - 45 mm Hg 11/02/2021 7:22 AM EDT [facility] Blood, Arterial 10/31/2021 9 :02 AM EDT 11/02/2021 7:22 AM EDT Thelma Tolbert MD POINT OF CARE TEST ORDERABLE S Final Result Performing Organization Address [facility] Co de Phone Number [facility] [address] [place] [address] * POC pH (10/31/2021 9:02 AM EDT) POC pH, Arterial 7.38 7.35 - 7.45 11/02/2021 7:22 AM EDT [facility] Blood, Arterial 10/31/2021 9 :02 AM EDT 11/02/2021 7:22 AM EDT us Thelma Tolbert MD POINT OF CARE TEST ORDERABLE S Final Result Performing Organization Address [facility] Co de Phone Number [facility] [address] [place] [address] * EKG REPORT - SCAN (10/31/2021) us Scanning [facility] SCAN DOCS - NO RESULTS Final Res ult documented in this encounter Visit Diagnoses Diagnosis Hyperkalemia- Primary Hyperpotassemia Chest pain, unspecified type Pre-syncope Syncope and collapse Hyperkalemia Hyperpotassemia ESRD (end stage renal disease) on dialysis ([facility]) End stage renal disease documented in this encounter Administered Medications Inactive Administered Medications - up to 3 most recent administrations Medication Order MAR Action Action Date Dose Rate Site ALPRAZolam (XANAX) tablet 0.5 mg 0.5 mg, Oral, Nightly PRN, Sleep, Starting on Mon10/31/21 at 1514 Given 10/31/2021 11:05 PM EDT 0.5 mg aspirin chewable tablet 81 mg 81 mg, Oral, Daily with breakfast, First dose on 11/01/21 at 0800 Given 11/01/2021 8:12 AM EDT 81 mg calcium acetate(phosphat bind) (PHOSLO) capsule 667 mg 667 mg, Oral, 3 times daily with meals, First dose on Mon10/31/21 at 1700 Given 11/01/2021 8:12 AM EDT 667 mg Given 10/31/2021 10:07 PM EDT 667 mg calcium gluconate in sodium chloride, iso-osm 1 gram/50 mL IV solution 1 g 1 g, Intravenous, at 100 mL/hr, Once, On Mon10/31/21 at 1106, For 1 dose, May repeat once for a total of 2 grams New Bag 10/31/2021 11:25 AM EDT 1 g 100 mL/hr carBAMazepine (TEGRETOL) tablet 200 mg 200 mg, Oral, 2 times daily, First dose on Mon10/31/21 at 1446 Given 11/01/2021 8:29 AM EDT 200 mg Given 10/31/2021 9:57 PM EDT 200 mg Given 10/31/2021 3:18 PM EDT 200 mg cinacalcet (SENSIPAR) tablet 60 mg 60 mg, Oral, Daily with breakfast, First dose on Mon11/01/21 at 0800, SWALLOW WHOLE; DO NOT CRUSH OR CHEW Given 11/01/2021 8:20 AM EDT 60 mg cyclobenzaprine (FLEXERIL) tablet 10 mg 10 mg, Oral, 3 times daily PRN, Muscle spasms, Starting on Mon10/31/21 at 1444 Given 10/31/2021 11:05 PM EDT 10 mg cycloSPORINE modified (NEORAL/GENGRAF) capsule 100 mg 100 mg, Oral, 2 times daily, First dose on Mon10/31/21 at 1446, LEVEL 2 HAZARDOUS MEDICATION Given 11/01/2021 8:21 AM EDT 100 mg Given 10/31/2021 9:56 PM EDT 100 mg dextrose 50 % in water (D50W) iv Syrg 25 mL 25 mL, Intravenous, Every 15 min PRN, see admin instructions, Starting on Mon10/31/21 at 1245, NPO / NO FEEDING TUBE: Patient is alert: blood glucose less than 70 mg/dL o Give 12.5 grams (25 ml) D50W. Recheck blood sugar in 15 minutes and repeat treatment if glucose still not greater than 70. NPO / NO FEEDING TUBE: Patient is lethargic/unresponsive: blood sugar less than 70mg/dL o Give 25 grams (50 ml) D50W. Recheck glucose in 15 minutes and repeat treatment if glucose still less than 70. dextrose 50 % in water (D50W) iv Syrg 50 mL 50 mL, Intravenous, Once, On Mon10/31/21 at 1216, For 1 dose, Administer with Insulin 5 units dose Given 10/31/2021 1:10 PM EDT 50 mLs dextrose 50 % in water (D50W) iv Syrg 50 mL 50 mL, Intravenous, Every 15 min PRN, see admin instructions, Starting on Mon10/31/21 at 1245, NPO / NO FEEDING TUBE: Patient is alert: blood glucose less than 70 mg/dL o Give 12.5 grams (25 ml) D50W. Recheck blood sugar in 15 minutes and repeat treatment if glucose still not greater than 70. NPO / NO FEEDING TUBE: Patient is lethargic/unresponsive: blood sugar less than 70mg/dL o Give 25 grams (50 ml) D50W. Recheck glucose in 15 minutes and repeat treatment if glucose still less than 70. ergocalciferol capsule 50,000 Units 50,000 Units, Oral, Every Monday and , First dose (after last modification) on Mon11/01/21 at 0900 Given 11/01/2021 8:23 AM EDT 50,000 Units fenofibrate tablet 160 mg 160 mg, Oral, Daily, First dose on Mon10/31/21 at 1447, Therapeutic Interchange: fenofibrate, micronized (LOFIBRA) 134 mg capsule daily = fenofibrate (TRICOR) 160 mg tablet daily Given 11/01/2021 8:23 AM EDT 160 mg Given 10/31/2021 3:18 PM EDT 160 mg ferrous sulfate tablet 325 mg 325 mg, Oral, Daily with breakfast, First dose on 11/01/21 at 0800 Given 11/01/2021 8:12 AM EDT 325 mg folic acid (FOLVITE) tablet 1 mg 1 mg, Oral, Daily, First dose on 10/31/21 at 1634 Given 11/01/2021 8:12 AM EDT 1 mg gabapentin (NEURONTIN) capsule 100 mg 100 mg, Oral, 2 times daily, First dose on 10/31/21 at 1445 Given 11/01/2021 8:29 AM EDT 100 mg Given 10/31/2021 9:57 PM EDT 100 mg Given 10/31/2021 3:18 PM EDT 100 mg glucose chewable tablet 12 g 12 g, Oral, Every 15 min PRN, Low blood sugar, see admin instructions, Starting on 10/31/21 at 1245, TAKING PO: Patient has blood glucose between [...] (3 times per day), First dose on Mon10/31/21 at 1340 Given 11/01/2021 8:24 AM EDT 5,000 Unit s Other Given 10/31/2021 9:54 PM EDT 5,000 Units A bdominal Tissue Given 10/31/2021 2:06 PM EDT 5,000 Units A bdominal Tissue hydrALAZINE (APRESOLINE) tablet 100 mg 100 mg, Oral, Every 8 hours, First dose on 10/31/21 at 1447 Given 11/01/2021 8:11 AM EDT 100 mg Given 10/31/2021 9:55 PM EDT 100 mg insulin lispro (humaLOG) injection 0-4 Units 0-4 Units, Subcutaneous, At Bedtime (2099), First dose on Mon10/31/21 at 2100, HIGH ALERT MEDICATION Glucose must be checked at 03:00 if bedtime correction is given. Onset of action is rapid. Give dose 5-10 minutes before meal. Have meal at bedside. insulin lispro (humaLOG) injection 0-5 Units 0-5 Units, Subcutaneous, 3 times daily before meals, First dose on Mon10/31/21 at 1800, HIGH ALERT MEDICATION insulin regular (HumuLIN R) injection 5 Units 5 Units, Intravenous, Once, On Mon10/31/21 at 1216, For 1 dose, Administer with D50W 50 mL dose. Use 1mL luer-lock syringe to administer ([employer] [place] #[id number]). If not on PAR, contact medical supply for one syringe. Given 10/31/2021 1:10 PM EDT 5 Units melatonin tablet Tab 6 mg 6 mg, Oral, At Bedtime (2099), First dose on Mon10/31/21 at 2100 Given 10/31/2021 9:54 PM EDT 6 mg metoprolol tartrate (LOPRESSOR) tablet 25 mg 25 mg, Oral, 2 times daily, First dose on Mon10/31/21 at 1447 Given 11/01/2021 8:12 AM EDT 25 mg Given 10/31/2021 9:55 PM EDT 25 mg mycophenolate (CELLCEPT) capsule 250 mg 250 mg, Oral, 2 times daily, First dose on Mon10/31/21 at 1447, LEVEL 2 HAZARDOUS MEDICATION Given 11/01/2021 8:11 AM EDT 250 mg Given 10/31/2021 9:54 PM EDT 250 mg NIFEdipine (PROCARDIA-XL) 24 hr tablet 90 mg 90 mg, Oral, 2 times daily, First dose on 10/31/21 at 1447, DO NOT CRUSH Given 11/01/2021 8:25 AM EDT 90 mg Given 10/31/2021 9:56 PM EDT 90 mg ondansetron (ZOFRAN-ODT) disintegrating tablet 4 mg 4 mg, Oral, Every 8 hours PRN, Nausea, Starting on Mon10/31/21 at 1446 Given 10/31/2021 9:55 PM EDT 4 mg pantoprazole (PROTONIX) EC tablet 40 mg 40 mg, Oral, Daily, First dose on Mon10/31/21 at 1447, Do Not Crush Given 11/01/2021 8:11 AM EDT 40 mg Given 10/31/2021 3:18 PM EDT 40 mg proCHLORPERazine (COMPAZINE) injection Soln 10 mg 10 mg, Intravenous, Every 6 hours PRN, Nausea and/or Vomiting, Starting on Mon11/01/21 at 0859 Given 11/01/2021 10:13 AM EDT 10 mg proMETHazine (PHENERGAN) injection 12.5 mg 12.5 mg, Intravenous, Once, On Mon10/31/21 at 2250, For 1 dose, IRRITANT IV Push administration REQUIRES dilution with 10 mL Saline Given 10/31/2021 11:05 PM EDT 12.5 mg proMETHazine (PHENERGAN) injection 12.5 mg 12.5 mg, Intravenous, Every 6 hours PRN, Nausea and/or Vomiting, Starting on Mon11/01/21 at 0829, IRRITANT IV Push administration REQUIRES dilution with 10 mL Saline sevelamer carbonate (RENVELA) tablet 1,600 mg 1,600 mg, Oral, 3 times daily with meals, First dose on Mon10/31/21 at 1700, DO NOT ADMINISTER VIA FEEDING TUBE Given 11/01/2021 8:11 AM EDT 1,600 mg Given 10/31/2021 10:07 PM EDT 1,600 mg sodium zirconium cyclosilicate (LOKELMA) oral powder PwPk 10 g 10 g, Oral, 3 times daily, First dose on Mon10/31/21 at 1300, For 48 hours, Dosing of Lokelma for Acute Hyperkalemia is 10 grams three times daily for 48 hours, Maintenance Dosing for Color Repairer use is typically 10 gram once daily Given 11/01/2021 8:20 AM EDT 10 g Given 10/31/2021 9:57 PM EDT 10 g Given 10/31/2021 1:09 PM EDT 10 g terazosin (HYTRIN) capsule 10 mg 10 mg, Oral, At Bedtime (2100), First dose on Mon10/31/21 at 2100, Therapeutic Interchange: doxazosin (CARDURA) 8 mg daily = terazosin (HYTRIN) 10 mg daily Given 10/31/2021 10:06 PM EDT 10 mg documented in this encounter Active and Recently Administered Medications Times are shown in EDT. Scheduled Medication Order 10/30/2021 10/31/2021 11/01/2021 aspirin chewable tablet 81 mg 81 mg, Oral, Daily with breakfast, First dose on Mon11/01/21 at 0800 0812 (Given - Provider: Hodan Neves RN) calcium acetate(phosphat bind) (PHOSLO) capsule 667 mg 667 mg, Oral, 3 times daily with meals, First dose on Mon10/31/21 at 1700 1504 (Hold - Provider: Mandi Tovar RN - Reason: Contraindicated - Comment: dialysis)2207 (Given - Provider: Eden Salazar RN) 0812 (Given - Provider: Hodan Neves, JANA)1222 (Hold - Provider: Hodan Neves RN - Reason: Transfer to a Procedural area)1609 (Hold - Provider: Hodan Neves RN - Reason: Transfer to a Procedural area) calcium gluconate in sodium chloride, iso-osm 1 gram/50 mL IV solution 1 g (COMPLETED) 1 g, Intravenous, at 100 mL/hr, Once, On 10/31/21 at 1106, For 1 dose, May repeat once for a total of 2 grams 1125 (New Bag - Provider: Mandi Tovar RN)1155 (Stopped - Provider: Mandi Tovar RN) carBAMazepine (TEGRETOL) tablet 200 mg 200 mg, Oral, 2 times daily, First dose on 10/31/21 at 1446 1518 (Given - Provider: Mandi Tovar RN)2157 (Given - Provider: Eden Salazar, RN) 0829 (Given - Provider: Hodan Neves, RN) cinacalcet (SENSIPAR) tablet 60 mg 60 mg, Oral, Daily with breakfast, First dose on Mon11/01/21 at 0800, SWALLOW WHOLE; DO NOT CRUSH OR CHEW 0820 (Given - Provider: Hodan Neves, JANA) cycloSPORINE modified (NEORAL/GENGRAF) capsule 100 mg 100 mg, Oral, 2 times daily, First dose on Mon10/31/21 at 1446, LEVEL 2 HAZARDOUS MEDICATION 1504 (Hold - Provider: Mandi Tovar RN - Reason: Contraindicated - Comment: Hold per medical lab technician)2155 (Given - Provider: Eden Salazar, RN) 08 (Given - Provider: Hodan Neves, JANA) dextrose 50 % in water (D50W) iv Syrg 50 mL (COMPLETED)(Linked Group 1) 50 mL, Intravenous, Once, On 10/31/21 at 1216, For 1 dose, Administer with Insulin 5 units dose 1310 (Given - Provider: Mandi Tovar RN) entecavir (BARACLUDE) tablet 0.5 mg 0.5 mg, Oral, Every 7 days, First dose on Mon10/31/21 at 1447, ADMINISTER ON EMPTY STOMACH (2 HOURS BEFORE OR AFTER MEALS). LEVEL 2 HAZARDOUS MEDICATION 1504 (Hold - Provider: Mandi Tovar RN - Reason: Contraindicated - Comment: Hold per medical lab technician) ergocalciferol capsule 50,000 Units 50,000 Units, Oral, Every Monday and , First dose (after last modification) on Mon11/01/21 at 0900 0823 (Given - Provider: Hodan Neves, JANA) fenofibrate tablet 160 mg 160 mg, Oral, Daily, First dose on 10/31/21 at 1447, Therapeutic Interchange: fenofibrate, micronized (LOFIBRA) 134 mg capsule daily = fenofibrate (TRICOR) 160 mg tablet daily 1518 (Given - Provider: Mandi Tovar RN) 0823 (Given - Provider: Hodan Neves, JANA) ferrous sulfate tablet 325 mg 325 mg, Oral, Daily with breakfast, First dose on 11/01/21 at 0800 0812 (Given - Provider: Hodan Neves RN) folic acid (FOLVITE) tablet 1 mg 1 mg, Oral, Daily, First dose on 10/31/21 at 1634 2040 (Not Given - Provider: Eden Salazar RN - Reason: Other) 0812 (Given - Provider: Hodan Neves RN) gabapentin (NEURONTIN) capsule 100 mg 100 mg, Oral, 2 times daily, First dose on 10/31/21 at 1445 1518 (Given - Provider: Mandi Tovar RN)2157 (Given - Provider: Eden Salazar RN) 0829 (Given - Provider: Hodan Neves RN) heparin (porcine) injection 5,000 Units 5,000 Units, Subcutaneous, Every 8 hours scheduled (3 times per day), First dose on 10/31/21 at 1340 1406 (Given - Provider: Mandi Tovar RN)2154 (Given - Provider: Eden Salazar RN) 0824 (Given - Provider: Hodan Neves RN)1224 (Hold - Provider: Hodan Neves RN - Reason: Transfer to a Procedural area) hydrALAZINE (APRESOLINE) tablet 100 mg 100 mg, Oral, Every 8 hours, First dose on 10/31/21 at 1447 1503 (Hold - Provider: Mandi Tovar RN - Reason: Contraindicated - Comment: Per medical lab technician)215 (Given - Provider: Eden Salazar RN) 0811 (Given - Provider: Hodan Neves RN)1610 (Hold - Provider: Hodan Neves RN - Reason: Transfer to a Procedural area) insulin lispro (humaLOG) injection 0-4 Units(Linked Group 2) 0-4 Units, Subcutaneous, At Bedtime (2100), First dose on 10/31/21 at 2100, HIGH ALERT MEDICATION Glucose must be checked at 03:00 if bedtime correction is given. Onset of action is rapid. Give dose 5-10 minutes before meal. Have meal at bedside. 2143 (Not Given - Provider: Eden Salazar RN - Reason: Order parameters not met) insulin lispro (humaLOG) injection 0-5 Units 0-5 Units, Subcutaneous, 3 times daily before meals, First dose on 10/31/21 at 1800, HIGH ALERT MEDICATION 2208 (Not Given - Provider: Eden Salazar RN - Reason: Order parameters not met) 0832 (Not Given - Provider: Hodan Neves RN - Reason: Order parameters not met)1223 (Hold - Provider: Hodan Neves RN - Reason: Transfer to a Procedural area)1610 (Hold - Provider: Hodan Neves RN - Reason: Transfer to a Procedural area) insulin regular (HumuLIN R) injection 5 Units (COMPLETED)(Linked Group 1) 5 Units, Intravenous, Once, On 10/31/21 at 1216, For 1 dose, Administer with D50W 50 mL dose. Use 1mL luer-lock syringe to administer ([employer] [place] #[id number]). If not on PAR, contact [employer] supply for one syringe. 1310 (Given - Provider: Mandi Tovar RN) melatonin tablet Tab 6 mg 6 mg, Oral, At Bedtime (2100), First dose on 10/31/21 at 2100 2153 (Given - Provider: Eden Salazar, JANA) metoprolol tartrate (LOPRESSOR) tablet 25 mg 25 mg, Oral, 2 times daily, First dose on 10/31/21 at 1447 1503 (Hold - Provider: Mandi Tovar RN - Reason: Contraindicated - Comment: Per dialysis)2154 (Given - Provider: Eden Salazar RN) 0812 (Given - Provider: Hodan Neves, JANA) mycophenolate (CELLCEPT) capsule 250 mg 250 mg, Oral, 2 times daily, First dose on 10/31/21 at 1447, LEVEL 2 HAZARDOUS MEDICATION 1505 (Hold - Provider: Mandi Tovar RN - Reason: Contraindicated - Comment: Hold per medical lab technician)2153 (Given - Provider: Eden Salazar, JANA) 0811 (Given - Provider: Hodan Neves, JANA) NIFEdipine (PROCARDIA-XL) 24 hr tablet 90 mg 90 mg, Oral, 2 times daily, First dose on 10/31/21 at 1447, DO NOT CRUSH 1505 (Hold - Provider: Mandi Tovar RN - Reason: Contraindicated - Comment: Hold per medical lab technician)2156 (Given - Provider: Eden Salazar, RN) 0825 (Given - Provider: Hodan Neves, JANA) pantoprazole (PROTONIX) EC tablet 40 mg 40 mg, Oral, Daily, First dose on 10/31/21 at 1447, Do Not Crush 1518 (Given - Provider: Mandi Tovar RN) 0811 (Given - Provider: Hodan Neves, JANA) proMETHazine (PHENERGAN) injection 12.5 mg (COMPLETED) 12.5 mg, Intravenous, Once, On 10/31/21 at 2250, For 1 dose, IRRITANT IV Push administration REQUIRES dilution with 10 mL Saline 2305 (Given - Provider: Eden Salazar, JANA) sevelamer carbonate (RENVELA) tablet 1,600 mg 1,600 mg, Oral, 3 times daily with meals, First dose on 10/31/21 at 1700, DO NOT ADMINISTER VIA FEEDING TUBE 2207 (Given - Provider: Eden Salazar, JANA) 0811 (Given - Provider: Hodan Neves, JANA)1224 (Hold - Provider: Hodan Neves RN - Reason: Transfer to a Procedural area)1610 (Hold - Provider: Hodan Neves RN - Reason: Transfer to a Procedural area) sodium zirconium cyclosilicate (LOKELMA) oral powder PwPk 10 g 10 g, Oral, 3 times daily, First dose on 10/31/21 at 1300, For 48 hours, Dosing of Lokelma for Acute Hyperkalemia is 10 grams three times daily for 48 hours, Maintenance Dosing for Color Repairer use is typically 10 gram once daily 1309 (Given - Provider: Mandi Tovar RN)2157 (Given - Provider: Eden Salazar, JANA) 0820 (Given - Provider: Hodan Neves, JANA)1225 (Not Given - Provider: Hodan Neves RN - Reason: Transfer to a Procedural area) terazosin (HYTRIN) capsule 10 mg 10 mg, Oral, At Bedtime (2100), First dose on 10/31/21 at 2100, Therapeutic Interchange: doxazosin (CARDURA) 8 mg daily = terazosin (HYTRIN) 10 mg daily 2205 (Given - Provider: Eden Salazar, JANA) PRN Medication Order 10/30/2021 10/31/2021 11/01/2021 ALPRAZolam (XANAX) tablet 0.5 mg 0.5 mg, Oral, Nightly PRN, Sleep, Starting on 10/31/21 at 1514 2157 (Hold - Provider: Eden Salazar RN - Reason: Other)2305 (Given - Provider: Eden Salazar, JANA) cyclobenzaprine (FLEXERIL) tablet 10 mg 10 mg, Oral, 3 times daily PRN, Muscle spasms, Starting on 10/31/21 at 1444 2305 (Given - Provider: Eden Salazar RN) dextrose 50 % in water (D50W) iv Syrg 25 mL(Linked Group 3) 25 mL, Intravenous, Every 15 min PRN, see admin instructions, Starting on 10/31/21 at 1245, NPO / NO FEEDING TUBE: Patient is alert: blood glucose less than 70 mg/dL o Give 12.5 grams (25 ml) D50W. Recheck blood sugar in 15 minutes and repeat treatment if glucose still not greater than 70. NPO / NO FEEDING TUBE: Patient is lethargic/unresponsive: blood sugar less than 70mg/dL o Give 25 grams (50 ml) D50W. Recheck glucose in 15 minutes and repeat treatment if glucose still less than 70. dextrose 50 % in water (D50W) iv Syrg 50 mL(Linked Group 3) 50 mL, Intravenous, Every 15 min PRN, see admin instructions, Starting on 10/31/21 at 1245, NPO / NO FEEDING TUBE: Patient is alert: blood glucose less than 70 mg/dL o Give 12.5 grams (25 ml) D50W. Recheck blood sugar in 15 minutes and repeat treatment if glucose still not greater than 70. NPO / NO FEEDING TUBE: Patient is lethargic/unresponsive: blood sugar less than 70mg/dL o Give 25 grams (50 ml) D50W. Recheck glucose in 15 minutes and repeat treatment if glucose still less than 70. glucose chewable tablet 12 g 12 g, Oral, Every 15 min PRN, Low blood sugar, see admin instructions, Starting on 10/31/21 at 1245, TAKING PO: Patient has blood glucose between [...] not give chewable tablets via feeding tube ondansetron (ZOFRAN-ODT) disintegrating tablet 4 mg (CANCELED) 4 mg, Oral, Every 8 hours PRN, Nausea, Starting on 10/31/21 at 1446 2155 (Given - Provider: Eden Salazar RN) polyethylene glycol (MIRALAX) packet 17 g 17 g, Oral, Daily as needed, mild constipation (no BM for 24 hrs), Starting on 10/31/21 at 1447 proCHLORPERazine (COMPAZINE) injection Soln 10 mg 10 mg, Intravenous, Every 6 hours PRN, Nausea and/or Vomiting, Starting on 11/01/21 at 0859 1013 (Given - Provid er: Una Rivers RN) proMETHazine (PHENERGAN) injection 12.5 mg 12.5 mg, Intravenous, Every 6 hours PRN, Nausea and/or Vomiting, Starting on Mon11/01/21 at 0829, IRRITANT IV Push administration REQUIRES dilution with 10 mL Saline Linked Groups Order Group 1: dextrose 50 % in water (D50W) iv Syrg 50 mL (COMPLETED)Jump to med 50 mL, Intravenous, Once, On Mon10/31/21 at 1216, For 1 dose, Administer with Insulin 5 units dose And insulin regular (HumuLIN R) injection 5 Units (COMPLETED)Jump to med 5 Units, Intravenous, Once, On Mon10/31/21 at 1216, For 1 dose, Administer with D50W 50 mL dose. Use 1mL luer-lock syringe to administer ([email or web address] #[id number]). If not on PAR, contact medical supply for one syringe. And Fingerstick Blood Glucose now and every hour x 6 (CANCELED) STAT, Now then every 1 hour, First occurrence on Mon10/31/21 at 1216, For 6 occurrences Group 2: insulin lispro (humaLOG) injection 0-4 UnitsJump to med 0-4 Units, Subcutaneous, At Bedtime (2100), First dose on Mon10/31/21 at 2100, HIGH ALERT MEDICATION Glucose must be checked at 03:00 if bedtime correction is given. Onset of action is rapid. Give dose 5-10 minutes before meal. Have meal at bedside. And Fingerstick Glucose, Overnight (If correction given) (CANCELED) STAT, Daily at 0300 PRN, Starting on Mon11/01/21 at 0300, Until Specified Group 3: dextrose 50 % in water (D50W) iv Syrg 25 mLJump to med 25 mL, Intravenous, Every 15 min PRN, see admin instructions, Starting on Mon10/31/21 at 1245, NPO / NO FEEDING TUBE: Patient is alert: blood glucose less than 70 mg/dL o Give 12.5 grams (25 ml) D50W. Recheck blood sugar in 15 minutes and repeat treatment if glucose still not greater than 70. NPO / NO FEEDING TUBE: Patient is lethargic/unresponsive: blood sugar less than 70mg/dL o Give 25 grams (50 ml) D50W. Recheck glucose in 15 minutes and repeat treatment if glucose still less than 70. Or dextrose 50 % in water (D50W) iv Syrg 50 mLJump to med 50 mL, Intravenous, Every 15 min PRN, see admin instructions, Starting on 10/31/21 at 1245, NPO / NO FEEDING TUBE: Patient is alert: blood glucose less than 70 mg/dL o Give 12.5 grams (25 ml) D50W. Recheck blood sugar in 15 minutes and repeat treatment if glucose still not greater than 70. NPO / NO FEEDING TUBE: Patient is lethargic/unresponsive: blood sugar less than 70mg/dL o Give 25 grams (50 ml) D50W. Recheck glucose in 15 minutes and repeat treatment if glucose still less than 70. documented in this encounter Additional Health Concerns Infection Onset Date Last Indicated Resolved Time Rule Out COVID-19 10/31/2021 10/31/2021 11/01/2021 6:40 AM EDT Assessment Noted Time PHQ-9 Depression Total Score: 0 12/06/19 18 3:00 PM EDT documented as of this encounter Care Teams Servomechanism Assembler Relationship Specialty Start Date End Date System, Provider Not In PCP - General 06/24/21 12/21/21 Maile Valles, RN Txp Post Coordinator Transplant Hepatology 11/07/17 Jakc Ordoñez MD [address] [place] [phone] Consulting Physician Transplant Hepatology 01/05/18 Estephania Sharif, DarrianD Pharmacist Pharmacist 11/11/19 documented as of this encounter
--- OUTSIDE RECORDS SUMMARY | 2024-07-12 12:34 | XMS_ITS | Encounter Summary ---
Author Organization [facility] Address [address] [place] [address] Care Team Providers Care Legal Recruiter Name Role Phone Maile Valles RN Unavailable [...] release of HIV test results or diagnoses. [id number] Health Encounter Details Date Type Department Care Team (Late st Contact Info) Description 09/06/2021 Telephone [facility] Liver Transplant at [address] [place] [phone] Dillon Whitman, RN Social History Tobacco Use Types Packs/Day [...] encounter Miscellaneous Notes * Telephone Encounter - Dillon Whitman RN - 09/06/2021 5:56 AM EST After hours call re: right sided abdominal pain at the level of the umbilicus. Went to bed last evening with the pain, but awoke this morning with it being worse . Rates 5/10. Has a ventral hernia per him - surgical consult cancelled last June and patient never rescheduled. Has had some nauseaon/off for last week, but tolerating diet. Bowels moved normally yesterday. Position changes alleviate. Encouraged to go to ER for increased pain if becomes intolerable. Will route to coordinator to follow-up. documented in this encounter Plan of Treatment Upcoming Encounters Date Type Department Care Team (Late st Contact Info) Description 07/15/2024 9:00 AM EST Hospital Encounter [facility] Interventional Radiology [address] [place] [phone] Herve Carrillo MD [address] [facility] [address] [place] [phone] documented as of this encounter Visit Diagnoses Not on filedocumented in this encounter Additional Health Concerns Assessment Noted Time PHQ-9 Depression Total Score: 0 12/06/19 18 3:00 PM EDT documented as of this encounter Care Teams Legal Recruiter Relationship Specialty Start Date End Date System, Provider Not In PCP - General 06/24/21 12/21/21 Maile Valles, JANA Txp Post Coordinator Transplant Hepatology 11/07/17 Jack Ordoñez MD [address] [place] [phone] Consulting Physician Transplant Hepatology 01/05/18 Estephania Sharif, DarrianD Pharmacist Pharmacist 11/11/19 documented as of this encounter
--- OUTSIDE RECORDS SUMMARY | 2024-07-12 12:34 | XMS_ITS | Encounter Summary ---
Author Organization [facility] Address [address] [place] [id number] Care Team Providers Care Social Insurance Specialist Name Role Phone Maile Valles RN Unavailable Unavail able Jack Ordoñez MD Unavailable [phone] Estephania Sharif PharmD Unavailable Christine vailable [...] release of HIV test results or diagnoses. [id number] Health Encounter Details Date Type Department Care Team (Latest Contact Info) Description 09/21/2021 Travel Social History Tobacco Use Types Packs/Day [...] 07/15/2024 9:00 AM EST Hospital Encounter [facility] Interventional Radiology [address] [place] [phone] Herve Carrillo MD [address] [facility] [address] [facility] [place] [phone] documented as of this encounter Visit Diagnoses Not on filedocumented in this encounter Additional Health Concerns Assessment Noted Time PHQ-9 Depression Total Score: 0 12/06/19 18 3:00 PM EDT documented as of this encounter Care Teams Social Insurance Specialist Relationship Specialty Start Date End Date System, Provider Not In PCP - General 06/24/21 12/21/21 Maile Valles, RN Txp Post Coordinator Transplant Hepatology 11/07/17 Jack Ordoñez MD [facility] [place] [phone] Consulting Physician Transplant Hepatology 01/05/18 Estephania Sharif, DarrianD Pharmacist Pharmacist 11/11/19 documented as of this encounter
--- OUTSIDE RECORDS SUMMARY | 2024-07-12 12:34 | XMS_ITS | Encounter Summary ---
Author Organization [facility] Address [address] [place] [address] Care Team Providers Care Paint Supervisor Name Role Phone Maile Valles RN [...] release of HIV test results or diagnoses. [id number] Health Encounter Details Date Type Department Care Team (Late st Contact Info) Description 09/15/2021 Orders Only [facility] Kidney Transplant at [place] [id number] [facility] [address] [place] [phone] Ana Santoyo RN Pre-transplant evaluation for kidney transplant (Primary Dx); Hypertension, unspecified type; Pulmonary HTN ([facility]); JC (obstructive sleep apnea); Type 2 diabetes mellitus with chronic kidney disease on chronic dialysis, unspecified whether half-way insulin use ([facility]); Routine history and physical examination of adult [...] Hospital Encounter [facility] Interventional Radiology [address] [place] [phone] Herve Carrillo MD [address] [place] [phone] Pending Results Name Type Priority Associated Diagnoses Date /Time Renal TX Recipient Lab Routine Pre-transplant evaluation for kidney transplant Hypertension, unspecified type Pulmonary HTN ([facility]) JC (obstructive sleep apnea) Type 2 diabetes mellitus with chronic kidney disease on chronic dialysis, unspecified whether half-way insulin use ([facility]) Routine history and physical examination of adult 09/21/2021 2:54 PM EST Scheduled Orders Name Type Priority Associated Diagnoses Orde r Schedule Renal TX Recipient Lab Routine Pre-transplant evaluation for kidney transplant Hypertension, unspecified type Pulmonary HTN ([facility]) JC (obstructive sleep apnea) Type 2 diabetes mellitus with chronic kidney disease on chronic dialysis, unspecified whether half-way insulin use ([facility]) Routine history and physical examination of adult Expected: 09/21/2021, Expires: 09/20/2022 CMV IgG & IgM Lab Routine Pre-transplant evaluation for kidney transplant Hypertension, unspecified type Pulmonary HTN (CMS-HCC) JC (obstructive sleep apnea) Type 2 diabetes mellitus with chronic kidney disease on chronic dialysis, unspecified whether half-way insulin use ([facility]) Routine history and physical examination of adult Expected: 09/21/2021, Expires: 09/20/2022 documented as of this encounter Results * Quantiferon TB Gold Plus (09/21/2021 2:54 PM EST) QuantiFERON TB1 Ag Value 0.18 IU/mL 09/23/2021 5:17 AM EST [facility] QuantiFERON TB2 Ag Value 0.14 IU/mL 09/23/2021 5:17 AM EST [facility] QuantiFERON Criteria Comment 09/22/2021 9:45 PM EST [facility] Comment: The QuantiFERON-TB Gold Plus result is determined by subtracting the Nil value from either TB antigen (Ag) tube. The mitogen tube serves as a control for the test. QuantiFERON Mitogen >10.00 IU/mL 09/23/2021 5:17 AM EST [facility] QuantiFERON Nil 0.15 IU/mL 5:17 AM EST [facility] QuantiFERON TB Gold Negative Negative 09/23/2021 5:17 AM EST [facility] Comment: The specimen received for QuantiFERON testing was incubated by the ordering institution. Specific procedures outlined in our Directory of Services and in the package insert for the QuantiFERON Gold (In Tube) test must be followed to enable for proper stimulation of cells for the production of interferon gamma. Chemiluminescence immunoassay methodology Whole Blood 09/21/2021 2:54 PM EST 09/23/2021 7:23 AM EST Narrative [facility] - 09/23/2021 7:23 AM EST PERFORMED AT: [facility] [phone] BUSINESS SERVICES ASSISTANT: Octavio Best, PhD ?? PHONE: [phone] us Destin Rawls MD LAB BLOOD ORDERABLES Final Resul t [facility] [address] [place] [address] * Uric acid (09/21/2021 2:54 PM EST) Uric Acid 6.3 3.8 - 8.7 mg/dL 09/21/2021 3:40 PM EST [facility] Plasma 09/21/2021 2:54 PM EST 09/21/2021 3:07 PM EST Destin Rawls MD LAB BLOOD ORDERABLES Final Resul t Performing Organization Address [facility] Co de Phone Number [facility] [address] * (ABNORMAL) Varicella zoster antibody, IgG (09/21/2021 2:54 PM EST) Varicella IgG Positive( A) Negative 09/21/2021 4:06 PM EST [facility] Comment:Result indicates the presence of detectable VZV IgG antibodies. A positive result is generally indicative of exposure to the pathogen or administration of specific immunoglobulins, but it is no indication of active infection or stage of disease. This test is not approved for determining vaccine-induced immunity to varicella zoster virus. VZV NUM 2,911.00( H) 0.00 - 134.99 INDEX 09/21/2021 4:06 PM EST [facility] Serum 09/21/2021 2:54 PM EST 09/21/2021 3:07 PM EST Destin Rawls MD LAB BLOOD ORDERABLES Final Resul t Performing Organization Address [facility] Co de Phone Number [facility] [address] * EBV Antibody IgM (09/21/2021 2:54 PM EST) EBV VCA IgM Negative Negative 09/21/2021 4:05 PM EST [facility] Comment:Absence of detectabl e VCA IgM antibodies. If exposure to [place] virus is suspected despite a negative finding, a second sample should be collected and tested no less than one to two weeks later. EBV IGM NUM 22.00 0.00 - 35.99 U/mL 09/21/2021 4:05 PM EST [facility] Serum 09/21/2021 2:54 PM EST 09/21/2021 3:07 PM EST Destin Rawls MD LAB BLOOD ORDERABLES Final Resul t Performing Organization Address [facility] Co de Phone Number [facility] [address] * (ABNORMAL) [place] virus VCA IgG Antibody (09/21/2021 2:54 PM EST) EBV VCA IgG Positive( A) Negative 09/21/2021 4:06 PM EST [facility] Comment:Presence of detectab le VCA IgG antibodies. A positive result indicates current or past exposure to [place] virus. EBV IGG NUM >750.00(H ) 0.00 - 17.99 U/mL 09/21/2021 4:06 PM EST [facility] Serum 09/21/2021 2:54 PM EST 09/21/2021 3:07 PM EST Destin Rawls MD LAB BLOOD ORDERABLES Final Resul t [facility] [address] * HIV-1 and HIV-2 antibodies (09/21/2021 2:54 PM EST) Pathologist [facility] HIV 1+2 AB/AGN Nonreactive Nonreactive 09/21/2021 3:59 PM EST [facility] Serum 09/21/2021 2:54 PM EST 09/21/2021 3:06 PM EST Critical access hospital [facility] - 09/21/2021 3:59 PM EST HIV-1 p24 Antigen and HIV-1/HIV-2 Antibody not detected. Destin Rawls MD LAB BLOOD ORDERABLES Final Resul t [facility] [address] * Hepatitis C antibody (09/21/2021 2:54 PM EST) Pathologist [facility] HCV Ab Nonreactive Nonreactive 09/21/2021 4:11 PM EST [facility] Comment:Health Department no tified in accordance with reportable infectious disease guidelines. Serum 09/21/2021 2:54 PM EST 09/21/2021 3:06 PM EST Narrative [facility] - 09/21/2021 4:11 PM EST Antibodies to HCV not detected; does not exclude the possibility of exposure to HCV. us Destin Rawls MD LAB BLOOD ORDERABLES Final Resul t Performing Organization Address City/[facility]/ZIP Co de Phone Number [facility] [address] * (ABNORMAL) Hepatitis B surface antibody (09/21/2021 2:54 PM EST) HBSAB NUMBER 184.00(H) 0.00 - 7.99 mIU/mL 09/21/2021 4:15 PM EST [facility] Hep B S Ab Reactive( A) Nonreactive 09/21/2021 4:15 PM EST [facility] Serum 09/21/2021 2:54 PM EST 09/21/2021 3:06 PM EST Critical access hospital LAB - 09/21/2021 4:15 PM EST Individual is considered immune to HBV infection. Result [facility] us Destin Rawls MD LAB BLOOD ORDERABLES Final Resul t Performing Organization Address [facility] Co de Phone Number [facility] [address] * Hepatitis B surface antigen (09/21/2021 2:54 PM EST) Hep B Surface Ag Nonreactive Nonreactive 09/21/2021 4:05 PM EST [facility] Comment:Health Department no tified in accordance with reportable infectious disease guidelines. Serum 09/21/2021 2:54 PM EST 09/21/2021 3:06 PM EST Critical access hospital LAB - 09/21/2021 4:06 PM EST Specimen is considered negative for HBsAg. us Destin Rawls MD LAB BLOOD ORDERABLES Final Resul t Performing Organization Address City/[facility]/ZIP Co de Phone Number [facility] [address] * (ABNORMAL) Hepatitis B Core Antibody (09/21/2021 2:54 PM EST) Hep B Core Total Ab Reactive( A) Nonreactive 09/21/2021 4:01 PM EST [facility] Comment: Health Department notified in accordance with reportable infectious disease guidelines. Health Department notified in accordance with reportable infectious disease guidelines. Serum 09/21/2021 2:54 PM EST 09/21/2021 3:06 PM EST Narrative [facility] - 09/21/2021 4:01 PM EST A reactive final interpretation indicates presumptive evidence of HBV; anti-HBc antibodies were detected in the sample which suggests either on-going or previous HBV infection. us Destin Rawls MD LAB BLOOD ORDERABLES Final Resul t Performing Organization Address [facility] Co de Phone Number [facility] [address] [place] [address] * (ABNORMAL) PTH (09/21/2021 2:54 PM EST) PTH 870.0(H) 12.0 - 88.0 pg/mL 09/21/2021 3:55 PM EST [facility] Serum 09/21/2021 2:54 PM EST 09/21/2021 3:07 PM EST us Destin Rawls MD LAB BLOOD ORDERABLES Final Resul t Performing Organization Address [facility] Co de Phone Number [facility] [address] [place] [address] * Magnesium (09/21/2021 2:54 PM EST) Magnesium 2.0 1.5 - 2.5 mg/dL 09/21/2021 3:40 PM EST [facility] Plasma 09/21/2021 2:54 PM EST 09/21/2021 3:07 PM EST us Destin Rawls MD LAB BLOOD ORDERABLES Final Resul t Performing Organization Address [facility] Co de Phone Number [facility] [address] [place] [address] * (ABNORMAL) Lipid Profile (09/21/2021 2:54 PM EST) Cholesterol, Total 236(H) 0 - 200 mg/dL 09/21/2021 3:40 PM EST [facility] LAB Triglycerides 264(H) 10 - 149 mg/dL 09/21/2021 3:40 PM EST [facility] HDL 44(L) 60 - 92 mg/dL 09/21/2021 3:40 PM EST [facility] Comment: ?LIPID PROFILE INTERPRETATION ?CHOLESTEROL,TOTAL(mg/dL) ? [...] 9- to 12- hour fast. LDL Cholesterol 139 mg/dL 2 3:40 PM EST [facility] Plasma 09/21/2021 2:54 PM EST 09/21/2021 3:07 PM EST Narrative HEALTH LAB - 09/21/2021 3:40 PM EST Must the patient be fasting for this test?->No us Destin Rawls MD LAB BLOOD ORDERABLES Final Resul t [facility] [address] [place] [address], [facility] * (ABNORMAL) Hemoglobin A1c (09/21/2021 2:54 PM EST) Hemoglobin A1C 6.0(H) 4.0 - 5.6 % 09/21/2021 5:21 PM EST [facility] Comment: Hemoglobin A1c Interpretation Guidelines: [...] and other individual patient considerations. Whole Blood 09/21/2021 2:54 PM EST 09/21/2021 3:07 PM EST us Destin Rawls MD LAB BLOOD ORDERABLES Final Resul t [facility] [address] [place] [address], [facility] * ECG 12 lead (MUSE) (09/21/2021 12:31 PM EST) 09/21/2021 12:3 1 PM EST Narrative MUSE - 09/22/2021 11:45 AM EST Ventricular Rate: ??90 ??BPM Atrial Rate: ??90 ??BPM P-R Interval: ??200 ??ms QRS Duration: ??108 ??ms QT: ??400 ??ms QTc: ??489 ??ms P [place]: ??64 ??degrees R [place]: ??56 ??degrees T [place]: ??66 ??degrees Diagnosis Line: ??NORMAL SINUS RHYTHM WITH SINUS ARRHYTHMIA ^ POSSIBLE LEFT ATRIAL ENLARGEMENT ^ PROLONGED QT ^ ABNORMAL ECG ^ COMPARED TO THE ECG OF 14-JUL-2020 22:15, ^ THERE IS NO SIGNIFICANT CHANGE ^ Confirmed by JE PEREZ MD ([facility]) on 09/22/2021 11:45:22 AM Destin Rawls MD ECG ORDERABLES Final Result MUSE documented in this encounter Visit Diagnoses Diagnosis Pre-transplant evaluation for kidney transplant- Primary Hypertension, unspecified type Pulmonary HTN (CMS-HCC) JC (obstructive sleep apnea) Obstructive sleep apnea (adult) (pediatric) Type 2 diabetes mellitus with chronic kidney disease on chronic dialysis, unspecified whether half-way insulin use (CMS-HCC) Routine history and physical examination of adult Pre-transplant evaluation for kidney transplant Hypertension, unspecified type Pulmonary HTN (CMS-HCC) JC (obstructive sleep apnea) Obstructive sleep apnea (adult) (pediatric) Type 2 diabetes mellitus with chronic kidney disease on chronic dialysis, unspecified whether half-way insulin use ([facility]) Routine history and physical examination of adult documented in this encounter Additional Health Concerns Assessment Noted Time PHQ-9 Depression Total Score: 0 12/06/19 18 3:00 PM EDT documented as of this encounter Care Teams Paint Supervisor Relationship Specialty Start Date End Date System, Provider Not In PCP - General 06/24/21 12/21/21 Maile Valles, RN Txp Post Coordinator Transplant Hepatology 11/07/17 Jack Ordoñez MD [facility] [place] [phone] Consulting Physician Transplant Hepatology 01/05/18 Estephania Sharif, DarrianD Pharmacist Pharmacist 11/11/19 documented as of this encounter
--- OUTSIDE RECORDS SUMMARY | 2024-07-12 12:34 | XMS_ITS | Encounter Summary ---
Author Organization [facility] Address [address] [place] [address] Care Team Providers Care Supervisor Grounds Name Role Phone Maile Valles RN Unavailable [...] release of HIV test results or diagnoses. [id number] Health Encounter Details Date Type Department Care Team (Late st Contact Info) Description 10/31/2021 Telephone [facility] Liver Transplant at [address] [place] [phone] Dillon Whitman, RN Social History Tobacco [...] Telephone Encounter - Dillon Whitman RN - 10/31/2021 10:10 AM EDT Late entry. After hours call from patient with chest tightness and fluid overload seeking advice where to get care. Patient believes he need dialysis and notes his local hospital does not offer. Patient in no distress, but advised to seek attention locally given his chest tightness. Call from local ED at [phone] requesting transfer to [facility]. Provided the transfer #. documented in this encounter Plan of Treatment Upcoming Encounters Date Type Department Care Team (Late st Contact Info) Description 07/15/2024 9:00 AM EST Hospital Encounter [facility] Interventional Radiology [address] [place] [phone] Herve Carrillo MD [address] [facility] [address] Surgery [place] [phone] documented as of this encounter Visit Diagnoses Not on filedocumented in this encounter Additional Health Concerns Assessment Noted Time PHQ-9 Depression Total Score: 0 12/06/19 18 3:00 PM EDT documented as of this encounter Care Teams Supervisor Grounds Relationship Specialty Start Date End Date System, Provider Not In PCP - General 06/24/21 12/21/21 Maile Valles, JANA Txp Post Coordinator Transplant Hepatology 11/07/17 Jack Ordoñez MD [address] [place] [phone] Consulting Physician Transplant Hepatology 01/05/18 Estephania Sharif, PharmD Pharmacist Pharmacist 11/11/19 documented as of this encounter
--- OUTSIDE RECORDS SUMMARY | 2024-07-12 12:34 | XMS_ITS | Encounter Summary ---
Author Organization [facility] Address [address] [place] [address] Care Team Providers Care Meat Hostess Name Role Phone Maile Valles RN Unavailable Unavail able Jack Ordoñez MD Unavailable [phone] Estephania Sharif PharmD Unavailable Christine vailable [...] release of HIV test results or diagnoses. [id number] Encounter Details Date Type Department Care Team (Late st Contact Info) Description 09/15/2021 Chart Note [facility] Kidney Transplant at [place] [id number] [facility] [address] [place] [address] Ana Santoyo RN Reviewing chart for clinic appt. Social History Tobacco Use Types Packs/Day Years [...] Progress Notes * Ana Santoyo RN - 09/15/2021 11:27 AM EST Reviewing chart for clinic appt. documented in this encounter Plan of Treatment Upcoming Encounters Date Type Department Care Team (Late st Contact Info) Description 07/15/2024 9:00 AM EST Hospital Encounter [facility] Interventional Radiology [address] [place] [phone] Herve Carrillo MD [address] [facility] [address] [facility] [place] [phone] documented as of this encounter Visit Diagnoses Not on filedocumented in this encounter Additional Health Concerns Assessment Noted Time PHQ-9 Depression Total Score: 0 12/06/19 18 3:00 PM EDT documented as of this encounter Care Teams Meat Hostess Relationship Specialty Start Date End Date System, Provider Not In PCP - General 06/24/21 12/21/21 Maile Valles, RN Txp Post Coordinator Transplant Hepatology 11/07/17 Jack Ordoñez MD [address] [place] [phone] Consulting Physician Transplant Hepatology 01/05/18 Estephania Sharif, DarrianD Pharmacist Pharmacist 11/11/19 documented as of this encounter
--- OUTSIDE RECORDS SUMMARY | 2024-07-12 12:34 | XMS_ITS | Encounter Summary ---
Author Organization [facility] Address [address] [place] [address] Care Team Providers Care Follow Up Specialist Name Role Phone Maile Valles RN [...] release of HIV test results or diagnoses. [id number] Health Encounter Details Date Type Department Care Team (Late st Contact Info) Description 09/24/2021 Chart Note [facility] Liver Transplant at [place] [id number] [facility] [address] [place] [address] Maile Valles, JANA UNOS [facility] Social History Tobacco Use Types Packs/Day Years [...] Progress Notes * Maile Valles RN - 09/24/2021 10:37 AM EST UNOS [facility] documented in this encounter Plan of Treatment Upcoming Encounters Date Type Department Care Team (Late st Contact Info) Description 07/15/2024 9:00 AM EST Hospital Encounter [facility] Interventional Radiology [address] [place] [phone] Herve Carrillo MD [address] [facility] [address] [place] [phone] documented as of this encounter Visit Diagnoses Not on filedocumented in this encounter Additional Health Concerns Assessment Noted Time PHQ-9 Depression Total Score: 0 12/06/19 18 3:00 PM EDT documented as of this encounter Care Teams Follow Up Specialist Relationship Specialty Start Date End Date System, Provider Not In PCP - General 06/24/21 12/21/21 Maile Valles, RN Txp Post Coordinator Transplant Hepatology 11/07/17 Jack Ordoñez MD [address] [place] [phone] Consulting Physician Transplant Hepatology 01/05/18 Estephania Sahrif, DarrianD Pharmacist Pharmacist 11/11/19 documented as of this encounter
--- OUTSIDE RECORDS SUMMARY | 2024-07-12 12:34 | XMS_ITS | Encounter Summary ---
Author Organization [facility] Address [address] [place] [address] Care Team Providers Care Senior Android Developer Name Role Phone Maile Valles RN Unavailable Unavail able Jack Ordoñez MD Unavailable [phone] Estephania Sharif PharmD Unavailable Christine vailable [...] release of HIV test results or diagnoses. [id number] Reason for Visit * Reason Comments Weight Check Encounter Details Date Type Department Care Team (Late st Contact Info) Description 08/26/2021 Telephone [facility] Kidney Transplant at [address] [place] [phone] Renee Barrett RN Weight Check Social History Tobacco Use Types Packs/Day Years [...] - Inhaled Oxygen Concentration - - Weight 119.5 kg (263 lb 7.2 oz) 022 11:39 AM EST Height 175.3 cm (5' 9 ) 08/26/2021 11:3 9 AM EST Body Mass Index 38.9 08/26/2021 11:39 AM EST documented in this encounter Miscellaneous Notes * Telephone Encounter - Renee Barrett RN - 08/26/2021 10:56 AM EST Reached out to [facility] for most current weight: 119.5kgs = 263.45lbs at recorded height of 5'9 makes current BMI at 40. Will continue to monitor and patient will come into Dread Evaluation. Message to JANA Perez regarding current weight documented in this encounter Plan of Treatment Upcoming Encounters Date Type Department Care Team (Late st Contact Info) Description 07/15/2024 9:00 AM EST Hospital Encounter [facility] Interventional Radiology [address] [place] [phone] Herve Carrillo MD [address] [facility] [address] [place] [phone] documented as of this encounter Visit Diagnoses Not on filedocumented in this encounter Additional Health Concerns Assessment Noted Time PHQ-9 Depression Total Score: 0 12/06/19 18 3:00 PM EDT documented as of this encounter Care Teams Senior Android Developer Relationship Specialty Start Date End Date System, Provider Not In PCP - General 06/24/21 12/21/21 Maile Valles RN Txp Post Coordinator Transplant Hepatology 11/07/17 Jack Ordoñez MD [facility] [place] [phone] Consulting Physician Transplant Hepatology 01/05/18 Estephania Sharif, PharmD Pharmacist Pharmacist 11/11/19 documented as of this encounter
--- OUTSIDE RECORDS SUMMARY | 2024-07-12 12:34 | XMS_ITS | Encounter Summary ---
Author Organization [facility] Address [address] [place] [address] Care Team Providers Care Computer Systems Analyst Name Role Phone Maile Valles RN [...] release of HIV test results or diagnoses. [id number] Health Encounter Details Date Type Department Care Team (Late st Contact Info) Description 08/17/2021 Telephone [facility] Kidney Transplant at [address] [place] [phone] Renee Barrett RN Social History Tobacco Use Types Packs/Day [...] Telephone Encounter - Renee Barrett RN - 08/17/2021 10:19 AM EST Returned call to patient - patient requested living donor link be messaged to his mychart. No further questions at this time. Patient reports he will get his 1st COVID vaccine after dialysis on Monday documented in this encounter Plan of Treatment Upcoming Encounters Date Type Department Care Team (Late st Contact Info) Description 07/15/2024 9:00 AM EST Hospital Encounter [facility] Interventional Radiology [address] [place] [phone] Herve Carrillo MD [address] [facility] [address] [place] [phone] documented as of this encounter Visit Diagnoses Not on filedocumented in this encounter Additional Health Concerns Assessment Noted Time PHQ-9 Depression Total Score: 0 12/06/19 18 3:00 PM EDT documented as of this encounter Care Teams Computer Systems Analyst Relationship Specialty Start Date End Date System, Provider Not In PCP - General 06/24/21 12/21/21 Maile Valles, JANA Txp Post Coordinator Transplant Hepatology 11/07/17 Jack Ordoñez MD [address] [place] [phone] Consulting Physician Transplant Hepatology 01/05/18 Estephania Sharif, DarrianD Pharmacist Pharmacist 11/11/19 documented as of this encounter
--- OUTSIDE RECORDS SUMMARY | 2024-07-12 12:34 | XMS_ITS | Encounter Summary ---
Author Organization [facility] Address [address] [place] [address] Care Team Providers Care Patent Drafter Name Role Phone Maile Valles RN Unavailable Unavail able Jack Ordoñez MD Unavailable [phone] Estephania Sharif PharmD Unavailable Christine vailable [...] release of HIV test results or diagnoses. [id number] Health Encounter Details Date Type Department Care Team (Late st Contact Info) Description 09/21/2021 Nutrition [facility] Kidney Transplant at [address] [phone] Social History Tobacco Use Types Packs/Day Years [...] as of this encounter Progress Notes * Earnest Merino Brandon, RD - 09/21/2021 12:15 PM EST Initial Kidney Transplant Nutrition Assessment HPI: Per MD note Dialysis Type: hemodialysis Pertinent Information: Met with Aiden Stauffer Jr. and support person(s) as part of the nutrition evaluation process for transplant. Endorses Good appetite prior to visit. Appears to have Adequate caloric/protein intake based on food recall. Eats 3 meal(s) + 1 snack(s) daily. Reports Good adherenceto FR. Weight stable per pt. Stays active w/ ADL's. Pt counseled on appropriate food choices consist ent with recommended diet. Post transplant nutrition guidelines discussed and reviewed. No further nutrition related questions or concerns this visit. Of note, pt w/ elevated BMI of 40.4. Discussed dietary strategies for wt loss w/ pt including meal tracking/prepping, portion control, increased activity as able, avoiding/limiting high calorie food,and lower calorie diet. Wt loss goal of 34# (240#) suggested to see BMI closer to 35.0. Pt appearedamenable to nutrition recommendations. He is not interested in TRIMS at this time. Physician/Dietitian recommended diet: Renal, DM Fluid Restriction: 32 oz Dry Weight: 118 kg Fluid Gains: pt unsure BMI: 40.46 kg/m?? Pertinent Labs: Lab Results Component Value Date HGBA1C 6.0 (H) 09/21/2021 Lab Results Component Value Date CREATININE 9.91 (H) 09/21/2021 BUN 69 (H) 09/21/2021 NA 141 09/21/2021 K 5.4 (H) 09/21/2021 Lab Results Component Value Date MG 2.0 09/21/2021 PHOS 8.4 (H) 09/21/2021 Anthropometrics: Height Weight 5' 9 (1.753 m) 274 lb (124.3 kg) BMI: 40.46 kg/m?? - Class 3 (40.00 - and above) BMI Goal BMI: 25 Goal Weight: 169 lbs Weight History: Wt Readings from Last 6 Encounters: 09/21/21 (!) 274 lb (124.3 kg) 08/26/21 (!) 263 lb 7.2 oz (119.5 kg) 07/15/21 (!) 266 lb 12.8 oz (121 kg) 06/24/21 (!) 263 lb (119.3 kg) 05/28/21 (!) 268 lb (121.6 kg) 01/12/21 (!) 268 lb 1.3 oz (121.6 kg) Past Medical History: Diagnosis Date ??? Acute [...] osteomyelitis (CMS Dx) ??? Vitamin D deficiency Pertinent Medications: Current Outpatient Medications on File Prior to Visit Medication Sig Dispense Refill ??? ALPRAZolam (XANAX) 0.5 MG tablet Take 0.5 mg by mouth if needed for Sleep. ??? aspirin 81 MG chewable tablet Chew 1 tablet (81 mg total) by mouth daily with breakfast. 30 tablet 5 ??? blood sugar diagnostic [facility] Use to test blood sugar up to 4 times a day. Diagnosis for use: E 9.65. For use with One Touch Verio meters. 150 strip 5 ??? blood-glucose meter (ONETOUCH VERIO SYSTEM) [facility] Use as instructed. 1 each 0 ??? carBAMazepine (TEGRETOL) 200 mg tablet Take 200 mg by mouth 2 times a day. ??? cloNIDine HCL (CATAPRES) 0.1 MG tablet Take 1 tablet (0.1 mg total) by mouth 2 times a day. 60 tablet 0 ??? cyclobenzaprine (FLEXERIL) 10 MG tablet Take [...] 2 times a day. 90 capsule 0 ??? hydrALAZINE (APRESOLINE) 100 MG tablet Take 1 tablet (100 mg total) by mouth every 8 hours. 120tablet 0 ??? insulin glargine (LANTUS) 100 unit/mL injection Inject subcutaneously at bedtime. ??? insulin NPH isoph U-100 human (HUMULIN N NPH INSULIN KWIKPEN) 100 unit/mL (3 mL) InPn Inject subcutaneously 12 units in the AM and 6 units in the PM. (Patient taking differently: Inject subcutaneously 18 units in the AM and 15 units in the PM. ) 15 mL 5 ??? lancets ([employer] DELPeek@U LANCETS) 33 gauge Misc Use 1 strip as directed 4 times daily before meals and at bedtime. 150 each 5 ??? melatonin 3 mg Tab Take 2 tablets (6 mg total) by mouth at bedtime. 30 tablet 0 ??? metoprolol tartrate (LOPRESSOR) 25 MG tablet [...] insulin 4 times daily. 150each 5 ??? phentermine 15 MG capsule Take 15 mg by mouth every morning. ??? polyethylene glycol (MIRALAX) 17 gram packet Take 17 g by mouth daily as needed (mild constipation (no BM for 24 hrs)). 14 packet 0 ??? polyethylene glycol (MIRALAX) 17 gram/dose powder Take 17 g by mouth 2 times a day. 1530 g 11 ??? QUEtiapine (SEROQUEL) 25 MG tablet Take 0.5 tablets (12.5 mg total) by mouth at bedtime. 15 tablet 0 No current facility-administered medications on file prior to visit. Allergies Allergen Reactions ??? Codeine Sulfate Hyper ??? Codeine Other (See Comments) Becomes hyper Other Labs: Lab Results Component Value Date ALT 7 09/21/2021 AST 15 09/21/2021 ALKPHOS 114 09/21/2021 BILITOT 0.5 09/21/2021 Lab Results Component Value Date ALBUMIN 4.9 09/21/2021 ALBUMIN 4.9 09/21/2021 Lab Results Component Value Date AAXT44T 15.8 (L) 01/14/2019 Past nutrition education: with RD at dialysis clinic 24 Hour Recall Breakfast: 3 eggs Lunch: turkey sandwich w/ cheese Dinner: chicken and green beans/corn Snacks: pears, grapes Beverages: water Food Allergies/Intolerances: NKFA Vitamins or Minerals: Vitamin D Dietary/Protein Supplements: none Physical Activity: Activities of daily living: able to complete Current structured exercises: none Barriers to exercise: none Nutrition Diagnosis: Problem: Altered nutrition-related lab values Etiology: CKD/ESRD Signs/Symptoms: Elevated renal labs Nutritional Intervention: Nutrition counseling with anticipative guidance/strategies to set appropriate goals and Post transplant diet guidelines Materials Provided: Pt declined Goals: Choose foods appropriate for a renal, DM diet. Eat consistent meals throughout the day. Do not skip meals. Eat high-protein foods. (eggs, cheese, meats, nuts, etc.) Use ONS as needed to meet calorie and protein needs. Increase activity as tolerated. Review renal labs with dietitian on a monthly basis to keep values in target range for optimal health. Nutrition Related Risk Factors: High BMI (40.4) Elevated phos (8.4) Bob Taylor RD, LD Clinical Dietitian - Kidney/Pancreas Transplant Office documented in this encounter Plan of Treatment Upcoming Encounters Date Type Department Care Team (Late st Contact Info) Description 07/15/2024 9:00 AM EST Hospital Encounter [facility] Interventional Radiology [address] [place] [phone] Herve Carrillo MD 3130 [facility] 3200 [place] [phone] documented as of this encounter Visit Diagnoses Not on filedocumented in this encounter Additional Health Concerns Assessment Noted Time PHQ-9 Depression Total Score: 0 12/06/19 18 3:00 PM EDT documented as of this encounter Care Teams Patent Drafter Relationship Specialty Start Date End Date System, Provider Not In PCP - General 06/24/21 12/21/21 Maile Valles, RN Txp Post Coordinator Transplant Hepatology 11/07/17 Jack Ordoñez MD [address] [place] [phone] Consulting Physician Transplant Hepatology 01/05/18 Estephania Sharif, DarrianD Pharmacist Pharmacist 11/11/19 documented as of this encounter
--- OUTSIDE RECORDS SUMMARY | 2024-07-12 12:34 | XMS_ITS | Encounter Summary ---
Author Organization [facility] Address [address] [place] [address] Care Team Providers Care Business Development Agent Name Role Phone Maile Valles RN [...] release of HIV test results or diagnoses. [id number] Reason for Visit * Reason Comments Results Encounter Details Date Type Department Care Team (Late st Contact Info) Description 09/23/[address] [facility] Liver Transplant at [address] [place] [phone] Maile Valles, JANA Results Social History [...] Telephone Encounter - Maile Valles RN - 09/23/2021 8:52 AM EST Lab results from 09/21/21 reviewed and are normal or without clinically significant abnormalities. Immunosuppression level not a trough. Will continue to monitor as per previously determined lab intervals. documented in this encounter Plan of Treatment Upcoming Encounters Date Type Department Care Team (Late st Contact Info) Description 07/15/2024 9:00 AM EST Hospital Encounter [facility] Interventional Radiology [address] [place] [phone] Herve Carrillo MD 3130 [facility] 3200 [place] [address] documented as of this encounter Visit Diagnoses Not on filedocumented in this encounter Additional Health Concerns Assessment Noted Time PHQ-9 Depression Total Score: 0 12/06/19 18 3:00 PM EDT documented as of this encounter Care Teams Business Development Agent Relationship Specialty Start Date End Date System, Provider Not In PCP - General 06/24/21 12/21/21 Maile Valles, JANA Txp Post Coordinator Transplant Hepatology 11/07/17 Jack Ordoñez MD [address] [place] [phone] Consulting Physician Transplant Hepatology 01/05/18 Estephania Sharif, DarrianD Pharmacist Pharmacist 11/11/19 documented as of this encounter
--- OUTSIDE RECORDS SUMMARY | 2024-07-12 12:34 | XMS_ITS | Encounter Summary ---
Author Organization [facility] Address [address] [place] [address] Care Team Providers Care Quality Control Technician Name Role Phone Maile Valles RN Unavailable Unavail able Jack Ordoñez MD Unavailable [phone] Estephania Sharif PharmD Unavailable Christine vailable [...] release of HIV test results or diagnoses. [id number] Health Encounter Details Date Type Department Care Team (Late st Contact Info) Description 09/15/[address] [facility] Transplant Hepatobiliary at [address] [place] [phone] Earl Mayer Social History Tobacco Use Types Packs/Day Years [...] encounter Miscellaneous Notes * Telephone Encounter - Earl Mayer - 09/15/2021 9:51 AM EST Talked to patient and Dr Montalvo will see him on 09/21. He will come over and I sent a message to [place] as well to place on his schedule at 12. Patient said that would be fine for him. Future Appointments Date Time Provider Department Center 09/21/2021 12:30 PM [facility] 07/14/2022 1:15 PM Jack Ordoñez MD [facility] documented in this encounter Plan of Treatment Upcoming Encounters Date Type Department Care Team (Late st Contact Info) Description 07/15/2024 9:00 AM EST Hospital Encounter [facility] Interventional Radiology [address] [place] [phone] Herve Carrillo MD 3130 [facility] [address]200 [place] [phone] documented as of this encounter Visit Diagnoses Not on filedocumented in this encounter Additional Health Concerns Assessment Noted Time PHQ-9 Depression Total Score: 0 12/06/19 18 3:00 PM EDT documented as of this encounter Care Teams Quality Control Technician Relationship Specialty Start Date End Date System, Provider Not In PCP - General 06/24/21 12/21/21 Maile Valles, JANA Txp Post Coordinator Transplant Hepatology 11/07/17 Jack Ordoñez MD [address] [place] [phone] Consulting Physician Transplant Hepatology 01/05/18 Estephania Sharif, DarrianD Pharmacist Pharmacist 11/11/19 documented as of this encounter
--- OUTSIDE RECORDS SUMMARY | 2024-07-12 12:34 | XMS_ITS | Encounter Summary ---
Author Organization [facility] Address [address] [place] [address] Care Team Providers Care Bisque Cleaner Name Role Phone Maile Valles RN Unavailable Unavail able Jack Ordoñez MD Unavailable [phone] Estephania Sharif PharmD Unavailable Christine vailable System, Provider Not In Primary Care Provider Un available Edgar Fournier MD Primary Care Provider [phone] Source Comments This information has been disclosed [...] release of HIV test results or diagnoses. [id number] Reason for Visit * Reason Comments After Hours Call Encounter Details Date Type Department Care Team (Late st Contact Info) Description 10/31/2021 Telephone [facility] [address] [place] [address] Unknown, Attending Provider After Hours [...] * Telephone Encounter - Cate Tellez - 10/31/2021 4:14 AM EDT Patient Name: Aiden Stauffer Jr. [id number] Patient Date of : 1975 Relationship of Caller to Patient: Patient Patient of: Liver TXP Nature of Call: Patient stated that his chest is hurting, and he is retaining fluid [employer] Provider Contacted: T Antonette- connected patient w/ senior financial consultant coordinator Dillon Provider contacted via pager or cell machine scallop cutter Liver TXP line Time and Method:04:14a Caller advised to call back in 30 minutes, if they do not hear from the provider on-call. Note was routed to the receiving on-call provider/pool. documented in this encounter Plan of Treatment Upcoming Encounters Date Type Department Care Team (Late st Contact Info) Description 07/15/2024 9:00 AM EST Hospital Encounter [facility] Interventional Radiology [address] [place] [phone] Herve Carrillo MD [address] [facility] [address] Surgery [place] [phone] documented as of this encounter [...] documented as of this encounter Care Teams Bisque Cleaner Relationship Specialty Start Date End Date System, Provider Not In PCP - General 06/24/21 12/21/21 Edgar Fournier MD [address] [place] [address] [place] [phone] PCP - General 12/22/21 Maile Valles, RN Txp Post Coordinator Transplant Hepatology 11/07/17 Jack Ordoñez MD [address] [place] [phone] Consulting Physician Transplant Hepatology 01/05/18 Estephania Sharif, DarrianD Pharmacist Pharmacist 11/11/19 documented as of this encounter
--- OUTSIDE RECORDS SUMMARY | 2024-07-12 12:34 | XMS_ITS | Encounter Summary ---
Author Organization [facility] Address [address] [place] [address] Care Team Providers Care Pastrycook'S Assistant Name Role Phone Maile Valles RN [...] release of HIV test results or diagnoses. [id number] Health Encounter Details Date Type Department Care Team (Late st Contact Info) Description 10/06/2021 Telephone [facility] Kidney Transplant at [address] [place] [address] Ana Santoyo RN Social History Tobacco [...] Encounter - Ana Santoyo RN - 10/06/2021 11:18 AM EST Pt returned call and we reviewed decision of selection meeting. This decision was to close evaluation until BMI is <37. Pt verbalized he was aware of this, but stated he was told once that happened he would be ready to go. I explained he may need further medical work up depending on how long it takes for the weight loss. Pt had question about his son being a living donor and I explained his son would need to contact the living donor coordinator. documented in this encounter Plan of Treatment Upcoming Encounters Date Type Department Care Team (Late st Contact Info) Description 07/15/2024 9:00 AM EST Hospital Encounter [facility] Interventional Radiology [address] [place] [phone] Herve Carrillo MD 8[address] [facility] 3200 [place] [address] documented as of this encounter Visit Diagnoses Not on filedocumented in this encounter Additional Health Concerns Assessment Noted Time PHQ-9 Depression Total Score: 0 12/06/19 18 3:00 PM EDT documented as of this encounter Care Teams Pastrycook'S Assistant Relationship Specialty Start Date End Date System, Provider Not In PCP - General 06/24/21 12/21/21 Maile Valles, RN Txp Post Coordinator Transplant Hepatology 11/07/17 Jack Ordoñez MD [address] [place] [phone] Consulting Physician Transplant Hepatology 01/05/18 Estephania Sharif, PharmD Pharmacist Pharmacist 11/11/19 documented as of this encounter
--- OUTSIDE RECORDS SUMMARY | 2024-07-12 12:35 | XMS_ITS | Encounter Summary ---
Author Organization [facility] Address [address] [place] [address] Care Team Providers Care Evp Global Product Leadership Name Role Phone Edgar Fournier MD Primary Care Provider [phone] Maile Valles RN Unavailable Unavail able Jack Ordoñez MD Unavailable [phone] Estephania Sharif PharmD Unavailable Christine vailable Source Comments This information has been disclosed [...] release of HIV test results or diagnoses. [id number] Reason for Visit * Reason Comments Medication Refill Encounter Details Date Type Department Care Team (Late st Contact Info) Description 05/21/2021 Refill [facility] Liver Transplant at [facility] [address] [facility] 3200 [place] [address] Jack Ordoñez MD [address] [place] [address] Social History Tobacco Use Types [...] Hospital Encounter [facility] Interventional Radiology [address] [place] [phone] Herve Carrillo MD 3130 [facility] 3200 [place] [address] documented as of this encounter Visit Diagnoses Not on filedocumented in this encounter Additional Health Concerns Assessment Noted Time PHQ-9 Depression Total Score: 0 12/06/19 18 3:00 PM EDT documented as of this encounter Care Teams Evp Global Product Leadership Relationship Specialty Start Date End Date Edgar Fournier MD [address] [place] [address] [place] [address] PCP - General 08/18/17 06/23/21 Maile Valles, JANA Txp Post Coordinator Transplant Hepatology 11/07/17 Jack Ordoñez MD [address] [place] [phone] Consulting Physician Transplant Hepatology 01/05/18 Estephania Sharif, DarrianD Pharmacist Pharmacist 11/11/19 documented as of this encounter
--- OUTSIDE RECORDS SUMMARY | 2024-07-12 12:35 | XMS_ITS | Encounter Summary ---
Author Organization [facility] Address [address] [place] [address] Care Team Providers Care [employer] Volleyball Coach Name Role Phone Edgar Fournier MD Primary Care Provider [phone] Maile Valles RN Unavailable Unavail able Jack Ordoñez MD Unavailable [phone] Estephania Sharif PharmD Unavailable Christine vailable [...] release of HIV test results or diagnoses. [id number] Reason for Visit * Reason Comments Confirmation Call Encounter Details Date Type Department Care Team (Late st Contact Info) Description 02/19/2021 Telephone [facility] Kidney Transplant at [address] [place] [address] Joselin Stanley MA Confirmation Call Social History Tobacco Use Types Packs/Day [...] have Coronavirus / COVID-19? No / Unsure 02/10/2021 8:19 AM EDT documented as of this encounter Miscellaneous Notes * Telephone Encounter - Joselin Stanley MA - 02/19/2021 9:32 AM EDT Called patient to confirm clinic appt on 03/02/21 at 1:50. Patient said he is scheduled for testing that day at . Advised patient if I rescheduled, he wouldn't be able to come in until the end of April. He agreed to keep his appt and will reschedule his testing with . Reminded patient of no show policy. documented in this encounter Plan of Treatment Upcoming Encounters Date Type Department Care Team (Late st Contact Info) Description 07/15/2024 9:00 AM [facility] Hospital Encounter [facility] Interventional Radiology [address] [place] [phone] Herve Carrillo MD 3130 [facility] 3200 [place] [phone] documented as of this encounter Visit Diagnoses Not on filedocumented in this encounter Additional Health Concerns Assessment Noted Time PHQ-9 Depression Total Score: 0 12/06/19 18 3:00 PM EDT documented as of this encounter Care Teams [employer] Volleyball Coach Relationship Specialty Start Date End Date Edgar Fournier MD [address] [place] [address] [place] [address] PCP - General 08/18/17 06/23/21 Maile Valles, RN Txp Post Coordinator Transplant Hepatology 11/07/17 Jack Ordoñez MD [address] [place] [address] Consulting Physician Transplant Hepatology 01/05/18 Estephania Sharif, DarrianD Pharmacist Pharmacist 11/11/19 documented as of this encounter
--- OUTSIDE RECORDS SUMMARY | 2024-07-12 12:35 | XMS_ITS | Encounter Summary ---
Author Organization [facility] Address [address] [place] [address] Care Team Providers Care Personal Investment Adviser Name Role Phone Maile Valles RN Unavailable Unavail able Jack Ordoñez MD Unavailable [phone] Estephania Sharif PharmD Unavailable Christine vailable [...] release of HIV test results or diagnoses. [id number] Health Encounter Details Date Type Department Care Team (Late st Contact Info) Description 07/06/2021 Chart Note [facility] Kidney Transplant at [place] [address] [facility] [address] [place] [address] Renee Barrett, JANA Note to Dr. Rawls concerning patient's BMI and evaluation progression Social History Tobacco Use Types Packs/Day Years [...] have Coronavirus / COVID-19? No / Unsure 06/24/2021 9:59 AM EST documented as of this encounter Progress Notes * Renee Barrett RN - 07/06/2021 2:21 PM EST Note to Dr. Rawls concerning patient's BMI and evaluation progression documented in this encounter Plan of Treatment Upcoming Encounters Date Type Department Care Team (Late st Contact Info) Description 07/15/2024 9:00 AM EST Hospital Encounter [facility] Interventional Radiology [address] [place] [phone] Herve Carrillo MD 3130 [facility] 3200 [place] [phone] documented as of this encounter Visit Diagnoses Not on filedocumented in this encounter Additional Health Concerns Assessment Noted Time PHQ-9 Depression Total Score: 0 12/06/19 18 3:00 PM EDT documented as of this encounter Care Teams Personal Investment Adviser Relationship Specialty Start Date End Date System, Provider Not In PCP - General 06/24/21 12/21/21 Maile Valles, JANA Txp Post Coordinator Transplant Hepatology 11/07/17 Jack Ordoñez MD [address] [place] [phone] Consulting Physician Transplant Hepatology 01/05/18 Estephania Sharif, DarrianD Pharmacist Pharmacist 11/11/19 documented as of this encounter
--- OUTSIDE RECORDS SUMMARY | 2024-07-12 12:35 | XMS_ITS | Encounter Summary ---
Author Organization [facility] Address [address] [place] [address] Care Team Providers Care Bulk Filler Name Role Phone Edgar Fournier MD Primary Care Provider [phone] Maile Valles RN Unavailable Unavail able Jack Ordoñez MD Unavailable [phone] Estephania Sharif PharmD Unavailable Christine vailable [...] release of HIV test results or diagnoses. [id number] Health Encounter Details Date Type Department Care Team (Late st Contact Info) Description 05/28/2021 Chart Note [facility] Kidney Transplant at [place] [address] [facility] [address] [place] [address] Saleem Espinal MA Entered new referral. Social History Tobacco Use Types Packs/Day Years [...] - Inhaled Oxygen Concentration - - Weight 121.6 kg (268 lb) 05/28/2021 11:00 AM EDT Height 170.2 cm (5' 7 ) 05/28/2021 11:00 AM EDT Body Mass Index 41.97 05/28/2021 11:00 AM EDT documented in this encounter Progress Notes * Saleem Espinal MA - 05/28/2021 11:09 AM EDT Entered new referral. Once pt is FC, I will move forward with scheduling for Lane O/R. documented in this encounter Plan of Treatment Upcoming Encounters Date Type Department Care Team (Late st Contact Info) Description 07/15/2024 9:00 AM [facility] Hospital Encounter [facility] Interventional Radiology [address] [place] [phone] Herve Carrillo MD [address] [facility] 3[address] [place] [phone] documented as of this encounter Visit Diagnoses Not on filedocumented in this encounter Additional Health Concerns Assessment Noted Time PHQ-9 Depression Total Score: 0 12/06/19 18 3:00 PM EDT documented as of this encounter Care Teams Bulk Filler Relationship Specialty Start Date End Date [facility] [place] [address] PCP - General 08/18/17 06/23/21 Maile Valles, JANA Txp Post Coordinator Transplant Hepatology 11/07/17 Jack Ordoñez MD [address] [place] [phone] Consulting Physician Transplant Hepatology 01/05/18 Estephania Sharif, PharmD Pharmacist Pharmacist 11/11/19 documented as of this encounter
--- OUTSIDE RECORDS SUMMARY | 2024-07-12 12:35 | XMS_ITS | Encounter Summary ---
Author Organization [facility] Address [address] [place] [address] Care Team Providers Care Backend Developer Name Role Phone Edgar Fournier MD Primary Care Provider [phone] Maile Valles RN Unavailable Unavail able Jack Ordoñez MD Unavailable [phone] Estephania Sharif PharmD Unavailable Christine vailable [...] release of HIV test results or diagnoses. [id number] Health Encounter Details Date Type Department Care Team (Late st Contact Info) Description 05/28/2021 Chart Note [facility] Kidney Transplant at [place] [address] [facility] [address] [place] [address] Kelly Carrillo Patient is financially cleared for kidney transplant eval Social History Tobacco Use Types Packs/Day Years [...] as of this encounter Progress Notes * Kelly Gerardo - 05/28/2021 12:56 PM EDT Patient is financially cleared for kidney transplant eval Evaluation for patients/donors can be done anywhere documented in this encounter Plan of Treatment Upcoming Encounters Date Type Department Care Team (Late st Contact Info) Description 07/15/2024 9:00 AM EST Hospital Encounter [facility] Interventional Radiology [address] [place] [address] Herve Carrillo MD 3130 [facility] 3200 Surgery [place] [address] documented as of this encounter Visit Diagnoses Not on filedocumented in this encounter Additional Health Concerns Assessment Noted Time PHQ-9 Depression Total Score: 0 12/06/19 18 3:00 PM EDT documented as of this encounter Care Teams Backend Developer Relationship Specialty Start Date End Date Edgar Fournier MD [address] [place] [address] [place] [address] PCP - General 08/18/17 06/23/21 Maile Valles, RN Txp Post Coordinator Transplant Hepatology 11/07/17 Jack Ordoñez MD [facility]8 [place] [phone] Consulting Physician Transplant Hepatology 01/05/18 Estephania Sharif, PharmD Pharmacist Pharmacist 11/11/19 documented as of this encounter
--- OUTSIDE RECORDS SUMMARY | 2024-07-12 12:35 | XMS_ITS | Encounter Summary ---
Author Organization [facility] Address [address] [place] [address] Care Team Providers Care Adjustment Examiner Name Role Phone Maile Valles RN Unavailable [...] release of HIV test results or diagnoses. [id number] Encounter Details Date Type Department Care Team (Latest Contact Info) Description 07/15/2021 Travel Social History Tobacco Use Types Packs/Day [...] have Coronavirus / COVID-19? No / Unsure 07/15/2021 1:31 PM EST documented as of this encounter Plan of Treatment Upcoming Encounters Date Type Department Care Team (Late st Contact Info) Description 07/15/2024 9:00 AM EST Hospital Encounter [facility] Interventional Radiology [address] [place] [address] Herve Carrillo MD 3130 [facility] 3200 [place] [phone] documented as of this encounter Visit Diagnoses Not on filedocumented in this encounter Additional Health Concerns Assessment Noted Time PHQ-9 Depression Total Score: 0 12/06/19 18 3:00 PM EDT documented as of this encounter Care Teams Adjustment Examiner Relationship Specialty Start Date End Date System, Provider Not In PCP - General 06/24/21 12/21/21 Maile Valles, RN Txp Post Coordinator Transplant Hepatology 11/07/17 Jack Ordoñez MD [facility]8 [place] [phone] Consulting Physician Transplant Hepatology 01/05/18 Estephania Sharif, DarrianD Pharmacist Pharmacist 11/11/19 documented as of this encounter
--- OUTSIDE RECORDS SUMMARY | 2024-07-12 12:35 | XMS_ITS | Encounter Summary ---
Author Organization [facility] Address [address] [place] [address] Care Team Providers Care Transfer And Line Up Worker Name Role Phone Edgar Fournier MD Primary Care Provider [phone] Maile Valles RN Unavailable Unavail able Jack Ordoeñz MD Unavailable [phone] Estephania Sharif PharmD Unavailable Christine vailable [...] release of HIV test results or diagnoses. [id number] Health Encounter Details Date Type Department Care Team (Late st Contact Info) Description 05/17/2021 Orders Only [facility] Liver Transplant at [facility] [address] [facility] [address] [place] [address] Jack Ordoñez MD [address] [place] [phone] Liver replaced by transplant ([facility]) (Primary Dx); Encounter for therapeutic drug [...] 07/15/2024 9:00 AM EST Hospital Encounter [facility] Interventional Radiology [address] [place] [phone] Herve Carrillo MD 3130 [facility] 3200 Surgery [place] [address] documented as of this encounter Visit Diagnoses Diagnosis Liver replaced by transplant (CMS-HCC)- Primary Liver replaced by transplant Encounter for therapeutic drug monitoring documented in this encounter Additional Health Concerns Assessment Noted Time PHQ-9 Depression Total Score: 0 12/06/19 18 3:00 PM EDT documented as of this encounter Care Teams Transfer And Line Up Worker Relationship Specialty Start Date End Date Edgar Fournier MD [address] [place] [address] [place] [address] PCP - General 08/18/17 06/23/21 Maile Valles, JANA Txp Post Coordinator Transplant Hepatology 11/07/17 Jack Ordoñez MD [address] [place] [phone] Consulting Physician Transplant Hepatology 01/05/18 Estephania Sharif, DarrianD Pharmacist Pharmacist 11/11/19 documented as of this encounter
--- OUTSIDE RECORDS SUMMARY | 2024-07-12 12:35 | XMS_ITS | Encounter Summary ---
Author Organization [facility] Address [address] [place] [address] Care Team Providers Care Personal Property Assessor Name Role Phone Maile Valles RN Unavailable [...] release of HIV test results or diagnoses. [id number] Health Encounter Details Date Type Department Care Team (Late st Contact Info) Description 08/04/2021 Telephone [facility] Kidney Transplant at [address] [place] [phone] Renee Barrett RN Social History Tobacco [...] PM EST documented as of this encounter Miscellaneous Notes * Telephone Encounter - Renee Barrett RN - 08/04/2021 12:16 PM EST ----- Message from Roxann Morrow MD sent at 08/04/2021 11:15 AM EST ----- Regarding: RE: COVID vaccine mandate Zahraa I am covering for Dr. Ordoñez while he is away but definitely should get COVID vaccine. No contraindications from a liver standpoint. Thanks! Roxann ----- Message ----- From: Renee Barrett RN Sent: 08/04/2021 11:01 AM EST To: Destin Rawls MD, Jack Ordoñez MD Subject: COVID vaccine mandate Dr. Ordoñez, As you may know, the Kidney transplant team is now mandating vaccinations for all evaluation and wait-listed patients. Mr. Stauffer is a previous liver transplant, now going through evaluation with . He is refusing the COVID vaccine, as he is scared to get it with his Liver transplant and other co-morbidities. Do you recommend this patient get the COVID vaccines from a liver transplant standpoint? Thank you, Renee documented in this encounter Plan of Treatment Upcoming Encounters Date Type Department Care Team (Late st Contact Info) Description 07/15/2024 9:00 AM EST Hospital Encounter [facility] Interventional Radiology [address] [place] [phone] Herve Carrillo MD [address] [facility] 3200 [place] [phone] documented as of this encounter Visit Diagnoses Not on filedocumented in this encounter Additional Health Concerns Assessment Noted Time PHQ-9 Depression Total Score: 0 12/06/19 18 3:00 PM EDT documented as of this encounter Care Teams Personal Property Assessor Relationship Specialty Start Date End Date System, Provider Not In PCP - General 06/24/21 12/21/21 Maile Valles, RN Txp Post Coordinator Transplant Hepatology 11/07/17 Jack Ordoñez MD [address] [place] [address] Consulting Physician Transplant Hepatology 01/05/18 Estephania Sharif, PharmD Pharmacist Pharmacist 11/11/19 documented as of this encounter
--- OUTSIDE RECORDS SUMMARY | 2024-07-12 12:35 | XMS_ITS | Encounter Summary ---
Author Organization [facility] Address [address] [place] [address] Care Team Providers Care Operations Administrative Assistant Name Role Phone Edgar Fournier MD Primary Care Provider [phone] Maile Valles RN Unavailable Unavail able Jack Ordoñez MD Unavailable [phone] Estephania Sharif PharmD Unavailable Christine vailable [...] release of HIV test results or diagnoses. [id number] Health Encounter Details Date Type Department Care Team (Late st Contact Info) Description 03/08/2021 Telephone [facility] Liver Transplant at [place] [address] [facility] [address] [place] [address] Racheal Hair MA Social History Tobacco Use Types Packs/Day [...] Telephone Encounter - Maile Valles RN - 03/10/2021 10:10 AM EDT Spoke with patient. Patient questioning having to wait 6 months before being referred back for kidney transplant. He stated that he called informing [facility] that he would not be able to come on 03/02/21 so doesn't understand why the appointment was marked No show . Advised patient this telegraphic typewriter operator would reach out to [facility]ney [facility] for details. Reviewed chart notes further. Telephone note from 02/19/21 indicates that patient was told by [facility] that if he rescheduled the 03/02/21 appointment, he would have to wait until end of April to be seen. Patient declined to reschedule for April and said that he would come on 03/02/21. Patient did not come on 03/02/21 - so No show distinction correct. Will review with Kidney [facility] team. * Telephone Encounter - Racheal Hair MA - 03/08/2021 2:42 PM EDT Patient called to speak with Maile. States he wanted to discuss his kidney transplant but didn't go into details. I let him know that he needed to call kidney, but he said he'd already spoken with them and wanted to talk with Maile. I let him know I'd send her a message. T documented in this encounter Plan of Treatment Upcoming Encounters Date Type Department Care Team (Late st Contact Info) Description 07/15/2024 9:00 AM EST Hospital Encounter [facility] Interventional Radiology [address] [place] [address] Herve Carrillo MD [address] [facility] 3200 [place] [address] documented as of this encounter Visit Diagnoses Not on filedocumented in this encounter Additional Health Concerns Assessment Noted Time PHQ-9 Depression Total Score: 0 12/06/19 18 3:00 PM EDT documented as of this encounter Care Teams Operations Administrative Assistant Relationship Specialty Start Date End Date Edgar Fournier MD [address] [place] [address] [place] [address] PCP - General 08/18/17 06/23/21 Maile Valles, RN Txp Post Coordinator Transplant Hepatology 11/07/17 Jack Ordoñez MD [address] [place] [address] Consulting Physician Transplant Hepatology 01/05/18 Estephania Sharif, DarrianD Pharmacist Pharmacist 11/11/19 documented as of this encounter
--- OUTSIDE RECORDS SUMMARY | 2024-07-12 12:35 | XMS_ITS | Encounter Summary ---
Author Organization [facility] Address [address] [place] [address] Care Team Providers Care Martial Arts Instructor Name Role Phone Edgar Fournier MD Primary Care Provider [phone] Maile Valles RN Unavailable Unavail able Jack Ordoñez MD Unavailable [phone] Estephania Sharif PharmD Unavailable Christine vailable [...] release of HIV test results or diagnoses. [id number] Health Encounter Details Date Type Department Care Team (Latest Contact Info) Description 06/16/2021 6:27 PM EDT - 06/16/2021 11:59 PM EDT Hospital Encounter [facility] Diagnostic Radiology [address] [place] [address] System, Provider Not In Discharge Disposition: Home or Self Care WITHOUT [...] every 7 days. 4 tablet 5 1 NIFEdipine (PROCARDIA-XL) 90 MG (OSM) 24 [...] for Sleep. 02/08/20 23 blood sugar diagnostic [facility] Use to test blood sugar up to 4 times a day. Diagnosis for use: E 9.65. For use with One Touch Verio meters. 150 strip 5 8 03/18/20 22 blood-glucose meter (ONETOUCH VERIO SYSTEM) [facility] Use as instructed. 1 each 8 03/18/20 22 cloNIDine HCL (CATAPRES) 0.1 MG tablet Take 1 tablet (0.1 mg total) by mouth 2 times a day. 60 tablet 0 11/01/19 22 cyclobenzaprine (FLEXERIL) 10 MG tablet Take 10 mg by mouth 3 times a day as needed for Muscle spasms. 11/16/19 22 cycloSPORINE modified (CYCLOSPORINE MODIFIED) 25 MG capsule Take 4 capsules (100 mg total) by mouth 2 times a day. 720 capsule 1 08/23/2021 11:54 AM EST 1 09/16/19 22 ergocalciferol (ERGOCALCIFEROL) 1,250 mcg (50,000 unit) capsule Take 50,000 Units by mouth every Monday, , and Monday. 03/18/20 22 fluticasone propionate (FLONASE) 50 mcg/actuation nasal spray Use into each nostril. 0 11/01/19 22 gabapentin (NEURONTIN) 100 MG capsuleIndications: Other osteonecrosis, left femur ([facility]) Take 1 capsule (100 mg total) by mouth 2 times a day. 90 capsule 0 11/16/19 22 hydrALAZINE (APRESOLINE) 100 MG tablet Take 1 tablet (100 mg total) by mouth every 8 hours. 120 tablet 0 11/09/19 24 insulin glargine (LANTUS) 100 unit/mL injection Inject subcutaneously at bedtime. 11/02/19 22 insulin NPH isoph U-100 human (HUMULIN N NPH INSULIN KWIKPEN) 100 unit/mL (3 mL) InPnIndications:S/P liver transplant ([facility]),Hyperglyc emia Inject subcutaneously 12 units in the AM and 6 units in the PM. 15 mL 5 0 11/02/19 22 lancets (ONETOUCH DELICA LANCETS) 33 gauge Misc Use 1 strip as directed 4 times daily before meals and at bedtime. 150 each 5 8 03/18/20 22 lidocaine (LIDODERM) 5 % Place 1 patch onto the skin daily as needed. 1 06/26/20 lisinopriL (PRINIVIL) 40 MG tablet Take 1 tablet by mouth daily. 0 03/18/20 melatonin 3 mg Tab Take 2 tablets (6 mg total) by mouth at bedtime. 30 tablet 0 03/16/20 22 metoprolol tartrate (LOPRESSOR) 25 MG tablet Take 1 tablet (25 mg total) by mouth 2 times a day. 60 tablet 0 03/16/20 22 mycophenolate (CELLCEPT) 250 mg capsule Take 1 capsule (250 mg total) by mouth 2 times a day. 60 capsule 5 03/29/2021 11:30 AM EDT 1 06/22/20 21 ondansetron (ZOFRAN-ODT) 4 MG disintegrating tablet Take 1 tablet (4 mg total) by mouth every 8 hours as needed. 8 04/28/20 24 pantoprazole (PROTONIX) 40 MG tablet Take 1 tablet (40 mg total) by mouth daily. 30 tablet 0 03/18/20 22 pen needle, diabetic 32 gauge x Ndle Use as directed to inject insulin 4 times daily. 150 each 5 8 03/18/20 22 phentermine 15 MG capsule Take 15 mg by mouth every morning. 11/01/19 22 QUEtiapine (SEROQUEL) 25 MG tablet Take 0.5 tablets (12.5 mg total) by mouth at bedtime. 15 tablet 0 11/01/19 22 documented as of this encounter Plan of Treatment Upcoming Encounters Date Type Department Care Team (Late st Contact Info) Description 07/15/2024 9:00 AM EST Hospital Encounter [facility] Interventional Radiology [address] [place] [address] Herve Carrillo MD [address] [facility] [address] Surgery [place] [phone] documented as of this encounter Procedures Procedure Name Priority Date/Time Associated Diagnosis Comments XR COMPARISON IMAGES Routine 06/16/2021 6:27 PM EDT documented in this encounter Results * X-ray Comparison Images (06/16/2021 6:27 PM EDT) Narrative EXTERNAL - 06/16/2021 6:27 PM EDT Images associated with this accession number were presented to us for comparison to an examination performed here. us Provider Not In System IMG DIAGNOSTIC IMAGING OR DERABLES Final Result EXTERNAL documented in this encounter Visit Diagnoses Not on filedocumented in this encounter Additional Health Concerns Assessment Noted Time PHQ-9 Depression Total Score: 0 12/06/19 18 3:00 PM EDT documented as of this encounter Care Teams Martial Arts Instructor Relationship Specialty Start Date End Date Edgar Fournier MD [address] [place] [address] [place] [address] PCP - General 08/18/17 06/23/21 Maile Valles, JANA Txp Post Coordinator Transplant Hepatology 11/07/17 Jack Ordoñez MD [address] [place] [address] Consulting Physician Transplant Hepatology 01/05/18 Estephania Sharif, DarrianD Pharmacist Pharmacist 11/11/19 documented as of this encounter
--- OUTSIDE RECORDS SUMMARY | 2024-07-12 12:35 | XMS_ITS | Encounter Summary ---
Author Organization [facility] Address [address] [place] [address] Care Team Providers Care Wire Wheeler Name Role Phone Edgar Fournier MD Primary Care Provider [phone] Maile Valles RN Unavailable Unavail able Jack Ordoñez MD Unavailable [phone] Estephania Sharif PharmD Unavailable Christine vailable [...] release of HIV test results or diagnoses. [id number] Health Encounter Details Date Type Department Care Team (Late st Contact Info) Description 06/14/2021 Chart Note [facility] Kidney Transplant at [facility] [address] [facility] [address] [place] [address] Renee Barrett RN Chart prep Social History Tobacco Use Types Packs/Day Years [...] Progress Notes * Renee Barrett RN - 06/14/2021 2:17 PM EDT Chart prep BMI on 05/14 at was 37.54 Previous liver txp here on 09/2017 documented in this encounter Plan of Treatment Upcoming Encounters Date Type Department Care Team (Late st Contact Info) Description 07/15/2024 9:00 AM EST Hospital Encounter [facility] Interventional Radiology [address] [place] [address] Herve Carrillo MD [address] [facility] [address] Surgery [place] [phone] documented as of this encounter Visit Diagnoses Not on filedocumented in this encounter Additional Health Concerns Assessment Noted Time PHQ-9 Depression Total Score: 0 12/06/19 18 3:00 PM EDT documented as of this encounter Care Teams Wire Wheeler Relationship Specialty Start Date End Date Edgar Fournier MD [address] [place] [address] [place] [address] PCP - General 08/18/17 06/23/21 Maile Valles, RN Txp Post Coordinator Transplant Hepatology 11/07/17 Jcak Ordoñez MD [facility] [place] [phone] Consulting Physician Transplant Hepatology 01/05/18 Estephania Sharif, PharmD Pharmacist Pharmacist 11/11/19 documented as of this encounter
--- OUTSIDE RECORDS SUMMARY | 2024-07-12 12:35 | XMS_ITS | Encounter Summary ---
Author Organization [facility] Address [address] [place] [address] Care Team Providers Care Director Visual Name Role Phone Edgar Fournier MD Primary Care Provider [phone] Maile Valles RN Unavailable Unavail able Jack Ordoñez MD Unavailable [phone] Estephania Sharif PharmD Unavailable Christine vailable [...] release of HIV test results or diagnoses. [id number] Health Encounter Details Date Type Department Care Team (Latest Contact Info) Description 06/18/2021 11:30 AM EDT Office Visit [facility] Transplant Hepatobiliary at [facility] [address] [facility] [address] [place] [address] Marcelino Montalvo III, MD 25[address] [facility] [address] [place] [address] Immunosuppression for liver transplant (CMS Dx) (Primary Dx); ESRD (end stage renal disease) (CMS-HCC); Liver transplanted (CMS-HCC); Incisional hernia, without obstruction or gangrene Social History Tobacco Use Types Packs/Day Years [...] Notes * Marcelino Montalvo III, MD - 06/18/2021 11:30 AM EDT Transplant Surgery Progress Note Had phone visit. Discussed management of his ventral hernia. On dialysis - trying to loose weight. He tells me his weight is downtrending. We discussed potential negative impact of obesity on hernia outcomes. Needs kidney transplant. Will see in person in coming weeks to discuss further. --- Tiffanie Montalvo III, MD Transplant Surgery (cell) documented in this encounter Plan of Treatment Upcoming Encounters Date Type Department Care Team (Late st Contact Info) Description 07/15/2024 9:00 AM EST Hospital Encounter [facility] Interventional Radiology [address] [place] [address] Herve Carrillo MD [address] [place] [address] [place] [address] documented as of this encounter Visit Diagnoses Diagnosis Immunosuppression for liver transplant (CMS Dx)- Primary ESRD (end stage renal disease) (CMS-HCC) End stage renal disease Liver transplanted (CMS-HCC) Liver replaced by transplant Incisional hernia, without obstruction or gangrene documented in this encounter Additional Health Concerns Assessment Noted Time PHQ-9 Depression Total Score: 0 12/06/19 18 3:00 PM EDT documented as of this encounter Care Teams Director Visual Relationship Specialty Start Date End Date Edgar Fournier MD [address] [place] [address] [place] [address] PCP - General 08/18/17 06/23/21 System, Provider Not In PCP - General 06/24/21 12/21/21 Maile Valles, RN Txp Post Coordinator Transplant Hepatology 11/07/17 Jack Ordoñez MD [address] [place] [address] Consulting Physician Transplant Hepatology 01/05/18 Estephania Sharif, PharmD Pharmacist Pharmacist 11/11/19 documented as of this encounter
--- OUTSIDE RECORDS SUMMARY | 2024-07-12 12:35 | XMS_ITS | Encounter Summary ---
Author Organization [facility] Address [address] [place] [address] Care Team Providers Care Housing Specialist Name Role Phone Edgar Fournier MD Primary Care Provider [phone] Maile Valles RN Unavailable Unavail able Jack Ordoñez MD Unavailable [phone] Estephania Sharif PharmD Unavailable Christine vailable [...] release of HIV test results or diagnoses. [id number] Reason for Visit * Reason Comments Care Management Images Encounter Details Date Type Department Care Team (Late st Contact Info) Description 02/28/2021 Telephone [facility] Pulmonology at [facility] [address] [facility] [address] [place] [address] Ravi Biswas MD [address] [facility], [address] [place] [address] Care Management (Images) Social History Tobacco Use Types Packs/Day Years [...] encounter Miscellaneous Notes * Telephone Encounter - Ravi Biswas MD - 02/28/2021 9:34 PM EDT Disc was obtained from [employer] with patient's imaging but could not be opened or uploaded for viewing. If images required, these will need to be requested again. Reports were reviewed. Future Appointments Date Time Provider Department Center 03/02/2021 1:50 PM [facility] 03/02/2021 3:20 PM [facility] documented in this encounter Plan of Treatment Upcoming Encounters Date Type Department Care Team (Late st Contact Info) Description 07/15/2024 9:00 AM EST Hospital Encounter [facility] Interventional Radiology [address] [place] [address] Herve Carrillo MD [address] [facility] [address] Surgery [place] [address] documented as of this encounter Visit Diagnoses Not on filedocumented in this encounter Additional Health Concerns Assessment Noted Time PHQ-9 Depression Total Score: 0 12/06/19 18 3:00 PM EDT documented as of this encounter Care Teams Housing Specialist Relationship Specialty Start Date End Date Edgar Fournier MD [address] [place] [phone] PCP - General 08/18/17 06/23/21 Maile Valles, RN Txp Post Coordinator Transplant Hepatology 11/07/17 Jack Ordoñez MD [address] [place] [address] Consulting Physician Transplant Hepatology 01/05/18 Estephania Sharif, PharmD Pharmacist Pharmacist 11/11/19 documented as of this encounter
--- OUTSIDE RECORDS SUMMARY | 2024-07-12 12:35 | XMS_ITS | Encounter Summary ---
Author Organization [facility] Address [address] [place] [address] Care Team Providers Care Pediatric Allergist Name Role Phone Maile Valles RN Unavailable Unavail able Jack Ordoñez MD Unavailable [phone] Estephania Sharif PharmD Unavailable Christine vailable [...] release of HIV test results or diagnoses. [id number] Health Encounter Details Date Type Department Care Team (Late st Contact Info) Description 07/07/2021 Telephone [facility] Kidney Transplant at [address] [place] [address] Renee Barrett RN Social History Tobacco [...] Telephone Encounter - Renee Barrett RN - 07/07/2021 8:31 AM EST Upon further research DU reports wgt at 116kg and height of 67 inches, BMI 40.1 Per outreach weight in, patient was at BMI 40 during appointment in [place]. Patient will be brought in for evaluation with team. * Telephone Encounter - Renee Barrett RN - 07/07/2021 8:14 AM EST ----- Message from Destin Rawls MD sent at 07/06/2021 8:33 PM EST ----- Regarding: RE: Canceled appt So, is he not coming in for hernia repair? If he has nothing planned then we will have to wait for him to reach BMI 40 ----- Message ----- From: Renee Barrett RN Sent: 07/06/2021 2:21 PM EST To: Destin Rawls MD Subject: Canceled appt Per the chart note the patient canceled his appt with Dr. Sutton because he is feeling better. Problem is we wanted [facility] to weigh in on the patient's weight. At this time, I would like to close him until he can lose the weight. Agree? Thank you, Renee documented in this encounter Plan of Treatment Upcoming Encounters Date Type Department Care Team (Late st Contact Info) Description 07/15/2024 9:00 AM EST Hospital Encounter [facility] Interventional Radiology [address] [place] [phone] Herve Carrillo MD [address] [place] [facility] [address] Surgery [place] [address] documented as of this encounter Visit Diagnoses Not on filedocumented in this encounter Additional Health Concerns Assessment Noted Time PHQ-9 Depression Total Score: 0 12/06/19 18 3:00 PM EDT documented as of this encounter Care Teams Pediatric Allergist Relationship Specialty Start Date End Date System, Provider Not In PCP - General 06/24/21 12/21/21 Maile Valles, RN Txp Post Coordinator Transplant Hepatology 11/07/17 Jack Ordoñez MD [address] [place] [address] Consulting Physician Transplant Hepatology 01/05/18 Estephania Sharif, DarrianD Pharmacist Pharmacist 11/11/19 documented as of this encounter
--- OUTSIDE RECORDS SUMMARY | 2024-07-12 12:35 | XMS_ITS | Encounter Summary ---
Author Organization [facility] Address [address] [place] [address] Care Team Providers Care Generation Mechanic Helper Name Role Phone Maile Valles RN Unavailable Unavail able Jack Ordoñez MD Unavailable [phone] Estephania Sharif PharmD Unavailable Christine vailable [...] release of HIV test results or diagnoses. [id number] Health Encounter Details Date Type Department Care Team (Late st Contact Info) Description 08/03/2021 Telephone [facility] Liver Transplant at [address] [address] Lynnette Muhammad MA Social History Tobacco [...] Telephone Encounter - Maile Valles RN - 08/03/2021 3:59 PM EST Patient needs to discuss with Kidney Transplant. * Telephone Encounter - Lynnette Muhammad MA - 08/03/2021 3:56 PM EST Pt called about the [employer] message he got about the covid vaccine being required as of Sep 14 forour transplant patients. He says he is very concerned and is scared because once after he got a fluvaccine he says he got really sick and almost . He is terrified to get another vaccine. Told ptwould relay to his coordinator. documented in this encounter Plan of Treatment Upcoming Encounters Date Type Department Care Team (Late st Contact Info) Description 07/15/2024 9:00 AM EST Hospital Encounter [facility] Interventional Radiology [address] [place] [address] Herve [facility]illo MD [facility] [facility] [address] [place] [phone] documented as of this encounter Visit Diagnoses Not on filedocumented in this encounter Additional Health Concerns Assessment Noted Time PHQ-9 Depression Total Score: 0 12/06/19 18 3:00 PM EDT documented as of this encounter Care Teams Generation Mechanic Helper Relationship Specialty Start Date End Date System, Provider Not In PCP - General 06/24/21 12/21/21 Maile Valles, RN Txp Post Coordinator Transplant Hepatology 11/07/17 Jack Ordoñez MD [address] [place] [address] Consulting Physician Transplant Hepatology 01/05/18 Estephania Sharif, DarrianD Pharmacist Pharmacist 11/11/19 documented as of this encounter
--- OUTSIDE RECORDS SUMMARY | 2024-07-12 12:35 | XMS_ITS | Encounter Summary ---
Author Organization [facility] Address [address] [place] [address] Care Team Providers Care Stage Electrician Name Role Phone Edgar Fournier MD Primary Care Provider [phone] Maile Valles RN Unavailable Unavail able Jack Ordoñez MD Unavailable [phone] Estephania Sharif PharmD Unavailable Christine vailable [...] release of HIV test results or diagnoses. [id number] Reason for Visit * Reason Comments [facility] O/R Encounter Details Date Type Department Care Team (Late st Contact Info) Description 05/28/2021 Telephone [facility] Kidney Transplant at [address] [place] [address] Saleem Espinal MA [place] [facility] Social History Tobacco Use Types Packs/Day Years [...] encounter Miscellaneous Notes * Telephone Encounter - Saleem Espinal MA - 05/31/2021 8:43 AM EDT Pt has been FC. Pt will attend [facility] on June @11AM. Made aware of no show policies. All forms sent to pt mychart upon request. Kidney Transplant Referral Questionnaire Basic Info Previously had a transplant (Type? When? What hospital were you treated?): Liver - [facility] -10/08/2017 Working with or listed at another transplant center (Which Txp Center?): Working up with [facility] Previously declined transplant ? Support/lost to follow- up/noncompliance) No. If yes to any of the below and over the age of 65 Cardiology HOLD History of heart attack (When? What hospital were you treated?): no History of any procedures on your heart (Stents, valves, pacemaker) (When? What hospital were you treated?): no History of diabetes (Type 1 or 2? When diagnosed?) type 2-diagnosed about 10 years ago. History of cancer (Type? When? What hospital were you treated? Treatment?): no Oxygen Dependent (Prescribed? Continuous?): no Medical Testing: Where do you normally receive your medical care? Kidney biopsy (When? Where) no Stress Test :( When? Where?) (Only obtain if in last 12 months) Echocardiogram: (When? Where?) (Only obtain if in last 12 months) Routine Health Maintenance - Remind patient to update as need Colonoscopy (Where? When?): Many years ago @[facility] Dental/Wear Dentures: Own teeth. Additional Information: Living Donor(s): Yes. Reminders: Long appointment, eat lunch prior, bring a snack, support person. Education [x] Video It is your responsibility to watch the video prior to your appointment. [] Class documented in this encounter Plan of Treatment Upcoming Encounters Date Type Department Care Team (Arsen santana Contact Info) Description 07/15/2024 9:00 AM EST Hospital Encounter [facility] Interventional Radiology [address] [place] [phone] Herve Carrillo MD [address] Surgery [place] [phone] documented as of this encounter Visit Diagnoses Not on filedocumented in this encounter Additional Health Concerns Assessment Noted Time PHQ-9 Depression Total Score: 0 12/06/19 18 3:00 PM EDT documented as of this encounter Care Teams Stage Electrician Relationship Specialty Start Date End Date Edgar Fournier MD [address] [place] [address] [place] [address] PCP - General 08/18/17 06/23/21 Maile Valles, JANA Txp Post Coordinator Transplant Hepatology 11/07/17 Jack Ordoñez MD [address] [place] [phone] Consulting Physician Transplant Hepatology 01/05/18 Estephania Sharif, DarrianD Pharmacist Pharmacist 11/11/19 documented as of this encounter
--- OUTSIDE RECORDS SUMMARY | 2024-07-12 12:35 | XMS_ITS | Encounter Summary ---
Author Organization [facility] Address [address] [place] [address] Care Team Providers Care Venetian Blind Worker Name Role Phone Maile Valles RN [...] release of HIV test results or diagnoses. [id number] Health Encounter Details Date Type Department Care Team (Late st Contact Info) Description 06/24/2021 11:00 AM EST Office Visit [facility] Nephrology at [place] [address] [place] [address] Destin Rawls MD [address] [facility] [address] [place] [address] Type 2 diabetes 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, with long-term current use of insulin ([facility]) (Primary Dx); Pre-transplant evaluation for kidney transplant; ESRD on dialysis ([facility]); Immunosuppression for liver transplant ([facility] D[facility]) Social History Tobacco Use Types Packs/Day [...] - Inhaled Oxygen Concentration - - Weight 119.3 kg (263 lb) 06/24/2021 11:05 AM EST Height 172.7 cm (5' 8 ) 06/24/2021 11:05 AM EST Body Mass Index 39.99 06/24/2021 11:05 AM EST documented in this encounter Progress Notes * Renee Barrett RN - 06/24/2021 11:00 AM EST Patient viewed Educational video on early date prior to Outreach Appointment. Patient was seen during pre-kidney transplant Outreach evaluation clinic by coordinator/medical information officer and all questions answered. The evaluation process, selection criteria, risk and benefits of transplant reviewed. Informed consent and outcomes data reviewed. Potential contraindications for transplantation reviewedwith patient. Living donor link given to patient. Possible hernia repair with Dr. Montalvo in the next month Past Liver Txp with Dr. Rossi Pre-Operative Screening Questionnaire for Kidney Transplant Recipients Do you have to stop when walking up two flights of stairs or other physical exertion because of severe shortness of breath or chest pain? y Have you ever had known heart problems [...] a breathing tube in you? n * Destin Rawls MD - 06/24/2021 11:00 AM EST Name: Aiden Stauffer Jr. Date of : 1975 Date of Service: 06/24/2021 Reason for Visit: Pre Transplant Evaulation History of Present Illness: HPI Pt seen in [facility] for kidney transplant evaluation. Pt. has no new complaints. No CP/SOB NoN/V/D. The following portions of the patient's history were reviewed and updated as appropriate: allergies, current medications, past family history, past medical history, past social history, past surgicalhistory and problem list. Review of Systems NOS Histories: The histories were reviewed. Physical Examination: Ht 5 ft 8 in Wt 263 lbs BMI 40 Physical Exam HENT: Head: Normocephalic and atraumatic. Mouth/Throat: Mouth: Mucous membranes are moist. Eyes: Extraocular Movements: Extraocular movements intact. Pupils: Pupils are equal, round, and reactive to light. Cardiovascular: Rate and Rhythm: Normal rate and regular rhythm. Pulmonary: Effort: Pulmonary effort is normal. Breath sounds: Normal breath sounds. Abdominal: General: There is distension. Palpations: Abdomen is soft. Comments: Central obesity + Pannus + Musculoskeletal: Cervical back: Normal range of motion. Neurological: General: No focal deficit present. Mental Status: He is alert and oriented to person, place, and time. Psychiatric: Mood and Affect: Mood normal. Behavior: Behavior normal. Allergies: Allergies Allergen Reactions ??? Codeine Sulfate Hyper ??? Codeine Other (See Comments) Becomes hyper Medications: Outpatient Encounter Medications as of 06/24/2021 Medication Sig Dispense Refill ??? ALPRAZolam (XANAX) 0.5 MG tablet Take 0.5 mg by mouth if needed for Sleep. ??? aspirin 81 MG chewable tablet Chew 1 tablet (81 mg total) by mouth daily with breakfast. 30 tablet 5 ??? blood sugar diagnostic Strp Use to test blood sugar up to 4 times a day. Diagnosis for use: E 9.65. For use with One Touch Verio meters. 150 strip 5 ??? blood-glucose meter (markedup VERIO SYSTEM) [facility] Use as instructed. 1 each 0 ??? [...] PM. ) 15 mL 5 ??? lancets ([employer] LANCETS) 33 gauge Misc Use 1 strip [...] for 24 hrs)). 14 packet 0 ??? QUEtiapine (SEROQUEL) 25 MG tablet Take 0.5 tablets (12.5 mg total) by mouth at bedtime. 15 tablet 0 ??? [DISCONTINUED] mycophenolate (CELLCEPT) 250 mg capsule Take 1 capsule (250 mg total) by mouth 2times a day. 60 capsule 5 No facility-administered encounter medications on file as of 06/24/2021. Review of Lab Results: 4.9 Assessment: Mr. Stauffer was seen today in the pre kidney and pancreas transplant outreach clinic. Our specialty services were consulted to evaluate Mr. Stauffer for a possible Kidney transplant due to chronic kidney disease secondary to Diabetic nephropathy [E11.29]. 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 Stauffer is currently on hemodialysis on Monday, Monday and Monday. 09/26/2019 left arm AVF Was on Home hemo but lost weight d/t infection etc and was switched back to in- center HD Cardiac History: Mr. Stauffer reports that he has not been diagnosed with Cardiovascular disease. Symptomatic PVD/PAD: Mr. Stauffer reports No. Pulmonary History: Mr. Stauffer reports that he has not been diagnosed with asthma, COPD, or pulmonary nodules. JC - on CPAP On Sildenafil- For Pulm HTN- review cath details Glycemic Status: Mr. Stauffer reports that diabetes mellitus 2. 2009 on Insulin Neuropathy retinopathy No amputations No PVD/PAD. Prior Malignancy: Mr. Stauffer has no prior malignancy. Sensitizing Events: Mr. tSauffer has had blood transfusions. He has had prior Liver transplant(s). Substance Abuse History: Mr. Stauffer reports that he does not currently smoke tobacco, marijuana, or any other illegal substance. Potential Donors: Mr. Stauffer has identified possible donors and will request their presence at the multidisciplinary transplant clinic visit when an appointment is scheduled. 2 sons and a friend Morbid/Central Obesity- BMI 40 - Advised to lose weight. Pannus + Pt was to get LSG last year but had vertebral osteo. Going to Dr Montalvo in Jul for abdominal hernia repair - will get his opinion for his abdominal girth transplantability when he sees him in Jul 2021. Meanwhile patient will continue to lose weight. Being worked up at [facility] Central obesity as above LD + Will get Txp Sx opinion on weight issue Plan: I have spent more than 45 minutes face to face with this patient with greater than 50% of this timespent in counseling and coordination of care discussing with the patient/family about risks and benefits of kidney transplant including long-term immunosuppression. We talked to the patient about thebenefits of living donor kidney transplantation. At this time, this patient has been instructed to watch the [facility] Pre Kidney/Pancreas Transplant Education Video or attend [facility] Pre Kidney/Pancreas Transplant Education class. Subsequent to transplant education, the team will start the pre-transplant workupconsisting of: tissue typing, PRA level, viral serologies, and as needed: diagnostic testing, screening, and consults. Psycho-social, dietary and financial evaluations will be conducted. Detailed medical and social history will be obtained. Following the above, the team will discuss this patient???s evaluation in our pre-transplant selection conference and will update you of the same. I want to thank you for your referral to [facility] Kidney Transplant Program. Please feel free to call me with any questions at [phone] or the Transplant Tub Wash Operator at [phone]. Destin Rawls MD Transplant Outreach [email or web address] Senior Front End Developer, Kidney Transplant Program, [facility] Pt. of Dr. Millan * Renee Barrett RN - 06/24/2021 11:00 AM EST Later entry - added weight and height from outreach appt documented in this encounter Plan of Treatment Upcoming Encounters Date Type Department Care Team (Late st Contact Info) Description 07/15/2024 9:00 AM EST Hospital Encounter [facility] Interventional Radiology [address] [place] [phone] Herve Carrillo MD [address] [facility] [address] [place] [phone] documented as of this encounter Visit Diagnoses Diagnosis Type 2 diabetes 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, with long-term current use of insulin ([facility])- Primary Pre-transplant evaluation for kidney transplant ESRD on dialysis ([facility]) End stage renal disease Immunosuppression for liver transplant ([facility] Dx) documented in this encounter Additional Health Concerns Assessment Noted Time PHQ-9 Depression Total Score: 0 12/06/19 18 3:00 PM EDT documented as of this encounter Care Teams Venetian Blind Worker Relationship Specialty Start Date End Date System, Provider Not In PCP - General 06/24/21 12/21/21 Maile Valles, RN Txp Post Coordinator Transplant Hepatology 11/07/17 Jack Ordoñez MD [facility] [place] [phone] Consulting Physician Transplant Hepatology 01/05/18 Estephania Sharif, DarrianD Pharmacist Pharmacist 11/11/19 documented as of this encounter
--- OUTSIDE RECORDS SUMMARY | 2024-07-12 12:35 | XMS_ITS | Encounter Summary ---
Author Organization [facility] Address [address] [place] [address] Care Team Providers Care Registered Nurse Ambulatory Name Role Phone Edgar Fournier MD Primary Care Provider [phone] Maile Valles RN Unavailable Unavail able Jack Ordoñez MD Unavailable [phone] Estephania Sharif PharmD Unavailable Christine vailable [...] release of HIV test results or diagnoses. [id number] Health Encounter Details Date Type Department Care Team (Late st Contact Info) Description 05/24/2021 Chart Note [facility] Kidney Transplant at [facility] [address] [facility] [address] [place] [address] Saleem Espinal MA Hi Alexis, Social History Tobacco Use Types Packs/Day Years [...] as of this encounter Progress Notes * Saleem Espinal MA - 05/24/2021 8:33 AM EDT Hi Saleem, Can we please open this referral for kidney txp and put this pt on the books for outreach? ??I knowhis BMI was questionable but he says his BMI is acceptable now. ??He also realized that he has not communicating w our team. ??He is listed at [facility] (we can get records from [facility]) ??but wants to get transplanted here bc his liver transplant was here. Thanks for your help Francesca Called [facility] to request a referral be sent on pt before moving forward with this pt process. documented in this encounter Plan of Treatment Upcoming Encounters Date Type Department Care Team (Late st Contact Info) Description 07/15/2024 9:00 AM EST Hospital Encounter [facility] Interventional Radiology [address] [place] [phone] Herve Carrillo MD [address] [facility] [address] [place] [address] documented as of this encounter Visit Diagnoses Not on filedocumented in this encounter Additional Health Concerns Assessment Noted Time PHQ-9 Depression Total Score: 0 12/06/19 18 3:00 PM EDT documented as of this encounter Care Teams Registered Nurse Ambulatory Relationship Specialty Start Date End Date Edgar Fournier MD [address] [place] [address] [place] [phone] PCP - General 08/18/17 06/23/21 Maile Valles, AJNA Txp Post Coordinator Transplant Hepatology 11/07/17 Jack Ordoñez MD [address] [place] [phone] Consulting Physician Transplant Hepatology 01/05/18 Estephania Sharif, DarrianD Pharmacist Pharmacist 11/11/19 documented as of this encounter
--- OUTSIDE RECORDS SUMMARY | 2024-07-12 12:35 | XMS_ITS | Encounter Summary ---
Author Organization [facility] Address [address] [place] [address] Care Team Providers Care Stacker Driver Name Role Phone Edgar Fournier MD Primary Care Provider [phone] Maile Valles RN Unavailable Unavail able Jack Ordoñez MD Unavailable [phone] Estephania Sharif PharmD Unavailable Christine vailable [...] release of HIV test results or diagnoses. [id number] Reason for Visit * Reason Comments reminder call Encounter Details Date Type Department Care Team (Late st Contact Info) Description 06/21/2021 Telephone [facility] Kidney Transplant at [address] [place] [phone] Flory Liang MA reminder call Social History Tobacco Use Types Packs/Day [...] encounter Miscellaneous Notes * Telephone Encounter - Flory Liang MA - 06/21/2021 2:15 PM EST Called patient to remind of visit on 06/24/2021 . Patient verbalized they would be there and were made aware of the no show policy. Patient also was told they can bring 1 visitor with them. documented in this encounter Plan of Treatment Upcoming Encounters Date Type Department Care Team (Late st Contact Info) Description 07/15/2024 9:00 AM EST Hospital Encounter [facility] Interventional Radiology [address] [place] [phone] Herve Carrillo MD [address] [facility] [address] [place] [phone] documented as of this encounter Visit Diagnoses Not on filedocumented in this encounter Additional Health Concerns Assessment Noted Time PHQ-9 Depression Total Score: 0 12/06/19 18 3:00 PM EDT documented as of this encounter Care Teams Stacker Driver Relationship Specialty Start Date End Date Edgar Fournier MD [address] [place] [address] [place] [address] PCP - General 08/18/17 06/23/21 Maile Valles, JANA Txp Post Coordinator Transplant Hepatology 11/07/17 Jack Ordoñez MD [address] [place] [phone] Consulting Physician Transplant Hepatology 01/05/18 Estephania Sharif, PharmD Pharmacist Pharmacist 11/11/19 documented as of this encounter
--- OUTSIDE RECORDS SUMMARY | 2024-07-12 12:35 | XMS_ITS | Encounter Summary ---
Author Organization [facility] Address [address] [place] [address] Care Team Providers Care Pressfitter Name Role Phone Edgar Fournier MD Primary Care Provider [phone] Maile Valles RN Unavailable Unavail able Jack Ordoñez MD Unavailable [phone] Estephania Sharif PharmD Unavailable Christine vailable [...] release of HIV test results or diagnoses. [id number] Health Encounter Details Date Type Department Care Team (Late st Contact Info) Description 06/03/2021 Chart Note [facility] Kidney Transplant at [place] [address] [facility] [address] [place] [address] Flory Liang MA Chart prep // [place] outreach // 06/24/2021 Social History Tobacco Use Types Packs/Day Years [...] as of this encounter Progress Notes * Flory Liang MA - 06/03/2021 1:58 PM EDT Chart prep // [place] outreach // 06/24/2021 documented in this encounter Plan of Treatment Upcoming Encounters Date Type Department Care Team (Late st Contact Info) Description 07/15/2024 9:00 AM EST Hospital Encounter [facility] Interventional Radiology [address] [place] [phone] Herve Carrillo MD [address] [facility] [address] Surgery [place] [phone] documented as of this encounter Visit Diagnoses Not on filedocumented in this encounter Additional Health Concerns Assessment Noted Time PHQ-9 Depression Total Score: 0 12/06/19 18 3:00 PM EDT documented as of this encounter Care Teams Pressfitter Relationship Specialty Start Date End Date Edgar Fournier MD [address] [place] [address] [place] [address] PCP - General 08/18/17 06/23/21 Maile Valles, JANA Txp Post Coordinator Transplant Hepatology 11/07/17 Jack Ordoñez MD [address] [place] [phone] Consulting Physician Transplant Hepatology 01/05/18 Estephania Sharif, DarrianD Pharmacist Pharmacist 11/11/19 documented as of this encounter
--- OUTSIDE RECORDS SUMMARY | 2024-07-12 12:35 | XMS_ITS | Encounter Summary ---
Author Organization [facility] Address [address] [place] [address] Care Team Providers Care Color Adviser Name Role Phone Edgar Fournier MD Primary Care Provider [phone] Maile Valles RN Unavailable Unavail able Jack Ordoñez MD Unavailable [phone] Estephania Sharif PharmD Unavailable Christine vailable [...] release of HIV test results or diagnoses. [id number] Reason for Visit * Reason Comments Advice Only Appointment Encounter Details Date Type Department Care Team (Late st Contact Info) Description 03/08/2021 Telephone [facility] Kidney Transplant at [address] [place] [phone] Raquel Colmenares Advice Only; Appointment Social History Tobacco Use Types Packs/Day [...] encounter Miscellaneous Notes * Telephone Encounter - aRquel Colmenares - 03/08/2021 2:39 PM EDT Pt called in today Thursday 03/08. Pt wanted to reschedule his 'no showed' KTSP. Marilee informed Pt of our 'no show' policy and that his referral has been closed for 6 months at this time. Pt verbalized understanding and did not have any further questions. Thank you, Raquel Darrian 03/08/2021 2:44 PM documented in this encounter Plan of Treatment Upcoming Encounters Date Type Department Care Team (Late st Contact Info) Description 07/15/2024 9:00 AM [facility] Hospital Encounter [facility] Interventional Radiology [address] [place] [phone] Herve Carrillo MD [address] [facility] [address] [place] [address] documented as of this encounter Visit Diagnoses Not on filedocumented in this encounter Additional Health Concerns Assessment Noted Time PHQ-9 Depression Total Score: 0 12/06/19 18 3:00 PM EDT documented as of this encounter Care Teams Color Adviser Relationship Specialty Start Date End Date Edgar [place] [address] PCP - General 08/18/17 06/23/21 Maile Valles, RN Txp Post Coordinator Transplant Hepatology 11/07/17 Jack Ordoñez MD [address] [place] [phone] Consulting Physician Transplant Hepatology 01/05/18 Estephania Sharif, DarrianD Pharmacist Pharmacist 11/11/19 documented as of this encounter
--- OUTSIDE RECORDS SUMMARY | 2024-07-12 12:35 | XMS_ITS | Encounter Summary ---
Author Organization [facility] Address [address] [place] [address] Care Team Providers Care Provider Network Mgr Name Role Phone Maile Valles RN Unavailable [...] release of HIV test results or diagnoses. [id number] Encounter Details Date Type Department Care Team (Latest Contact Info) Description 06/24/2021 Travel Social History Tobacco Use Types Packs/Day [...] 9:00 AM EST Hospital Encounter [facility] Interventional Radiology [address] [place] [phone] Herve Carrillo MD [address] [facility] [address] [place] [phone] documented as of this encounter Visit Diagnoses Not on filedocumented in this encounter Additional Health Concerns Assessment Noted Time PHQ-9 Depression Total Score: 0 12/06/19 18 3:00 PM EDT documented as of this encounter Care Teams Provider Network Mgr Relationship Specialty Start Date End Date System, Provider Not In PCP - General 06/24/21 12/21/21 Maile Valles, RN Txp Post Coordinator Transplant Hepatology 11/07/17 Jack Ordoñez MD [facility] [place] [phone] Consulting Physician Transplant Hepatology 01/05/18 Estephania Sharif, DarrianD Pharmacist Pharmacist 11/11/19 documented as of this encounter
--- OUTSIDE RECORDS SUMMARY | 2024-07-12 12:35 | XMS_ITS | Encounter Summary ---
Author Organization [facility] Address [address] [place] [address] Care Team Providers Care Sales Engineer Account Manager Name Role Phone Maile Valles RN Unavailable Unavail able Jack Ordoñez MD Unavailable [phone] Estephania Sharif PharmD Unavailable Christine vailable [...] release of HIV test results or diagnoses. [id number] Health Encounter Details Date Type Department Care Team (Latest Contact Info) Description 07/07/2021 Orders Only [facility] Kidney Transplant at [place] [id number] [facility] [address] [place] [address] Renee Barrett RN Pre-transplant evaluation for kidney transplant (Primary Dx); Hypertension, unspecified type; Pulmonary HTN ([facility]-HCC); Obstructive sleep apnea; Sleep apnea, unspecified type; Acute pancreatitis, unspecified complication status, unspecified pancreatitis type; Gastroesophageal reflux disease, unspecified whether esophagitis present; Liver transplanted (CMS-HCC); Type 2 diabetes mellitus with chronic kidney disease on chronic dialysis, unspecified whether salvage determiner insulin use (CMS-HCC); Secondary hyperparathyroidism of renal origin (CMS-HCC); Abnormal stress test; Anemia due to chronic kidney disease, on chronic dialysis (CMS-HCC); Immunosuppression for liver transplant ([facility] Dx); Hepatitis B carrier (CMS-HCC); Incisional hernia, without obstruction or gangrene [...] Description 07/15/2024 9:00 AM EST Hospital Encounter [facility] Interventional Radiology [address] [place] [address] Herve Carrillo MD [address] [facility] [address] [place] [address] Scheduled Orders Name Type Priority Associated Diagnoses Orde r Schedule ECG 12 lead (MUSE) ECG Routine Hypertension, unspecified type Pulmonary HTN (CMS-HCC) Obstructive sleep apnea Sleep apnea, unspecified type Acute pancreatitis, unspecified complication status, unspecified pancreatitis type Gastroesophageal reflux disease, unspecified whether esophagitis present Liver transplanted (CMS-HCC) Type 2 diabetes mellitus with chronic kidney disease on chronic dialysis, unspecified whether salvage determiner insulin use (CMS-HCC) Secondary hyperparathyroidism of renal origin (CMS-HCC) Abnormal stress test Anemia due to chronic kidney disease, on chronic dialysis (CMS-HCC) Immunosuppression for liver transplant ([facility] Dx) Hepatitis B carrier (CMS-HCC) Incisional hernia, without obstruction or gangrene Pre-transplant evaluation for kidney transplant 1 Occurrences starting 07/07/2021 until 07/21/2021 documented as of this encounter Visit Diagnoses Diagnosis Pre-transplant evaluation for kidney transplant- Primary Hypertension, unspecified type Pulmonary HTN (CMS-HCC) Obstructive sleep apnea Obstructive sleep apnea (adult) (pediatric) Sleep apnea, unspecified type Acute pancreatitis, unspecified complication status, unspecified pancreatitis type Gastroesophageal reflux disease, unspecified whether esophagitis present Liver transplanted (CMS-HCC) Liver replaced by transplant Type 2 diabetes mellitus with chronic kidney disease on chronic dialysis, unspecified whether salvage determiner insulin use (CMS-HCC) Secondary hyperparathyroidism of renal origin (CMS-HCC) Secondary hyperparathyroidism (of renal origin) Abnormal stress test Other nonspecific abnormal cardiovascular system function study Anemia due to chronic kidney disease, on chronic dialysis (CMS-HCC) Immunosuppression for liver transplant ([facility] Dx) Hepatitis B carrier (CMS-HCC) Hepatitis B carrier Incisional hernia, without obstruction or gangrene documented in this encounter Additional Health Concerns Assessment Noted Time PHQ-9 Depression Total Score: 0 12/06/19 18 3:00 PM EDT documented as of this encounter Care Teams Sales Engineer Account Manager Relationship Specialty Start Date End Date System, Provider Not In PCP - General 06/24/21 12/21/21 Maile Valles, RN Txp Post Coordinator Transplant Hepatology 11/07/17 Jack Ordoñez MD [address] [place] [phone] Consulting Physician Transplant Hepatology 01/05/18 Estephania Sharif, DarrianD Pharmacist Pharmacist 11/11/19 documented as of this encounter
--- OUTSIDE RECORDS SUMMARY | 2024-07-12 12:35 | XMS_ITS | Encounter Summary ---
Author Organization [facility] Address [address] [place] [address] Care Team Providers Care Client Associate Name Role Phone Maile Valles RN Unavailable Unavail able Jack Ordoñez MD Unavailable [phone] Estephania Sharif PharmD Unavailable Christine vailable [...] release of HIV test results or diagnoses. [id number] Health Encounter Details Date Type Department Care Team (Late st Contact Info) Description 08/04/2021 Chart Note [facility] Kidney Transplant at [place] [address] [facility] [address] [place] [address] Renee Barrett RN Per patient he was sick for 2 weeks (in bed) after receiving Flu vaccine Social History Tobacco Use Types Packs/Day Years [...] PM EST documented as of this encounter Progress Notes * Renee Barrett RN - 08/04/2021 8:05 AM EST Per patient he was sick for 2 weeks (in bed) after receiving Flu vaccine in 2019. Patient reports being admitted to [facility] during same time period for week. Contacted [facility] for records of admission - in 2019 the patient was admitted once for less than 24 hours on 01/20/20. Admission history states the patient presents to hospital with 5 days of dyspnea (with exertion and walking). Patient denied cough, congestion or exposure to patient with COVID. Patient discharged with COVID testing pending and remarks that patient was fluid overloaded at a weight of 298 - target 277 lbs. Reached out to Dialysis center which reports patient refused both 2019 and 2020 flu vaccine. Spoke with Dr. Rawls - he'd like input from Liver transplant, awaiting response to Epic message sent to Liver Txp Dr. Ordoñez for Liver transplant clearance for COVD vaccine. Will follow up with patient once we hear from Liver Txp * Renee Barrett RN - 08/04/2021 8:[address] Morrow (covering for Dr. Glass) - definitely should get COVID vaccine. No contraindications from a liver standpoint. * Renee Barrett RN - 08/04/2021 8:05 AM EST Reached out to patient, educated him that the liver team is recommending he get the COVID vaccine. Patient states I hope I don't , which one should I take? , which one has no side effects? , do I need to come up there to get it? Educated patient to receive either the Pfizer or Moderna COVID vaccine, that no vaccine was withoutpossible side effects, to please call local pharmacy (try [facility], [facility], [facility], [facility], etc.). Please call PCP if further local information needed. Educated patient to call this RN when he received his first dose. Patient verbalized understanding then stated I hope I don't . No further questions at this time. documented in this encounter Plan of Treatment Upcoming Encounters Date Type Department Care Team (Late st Contact Info) Description 07/15/2024 9:00 AM EST Hospital Encounter [facility] Interventional Radiology [address] [place] [phone] Herve Carrillo MD [address] [facility] [address] [facility] [place] [phone] documented as of this encounter Visit Diagnoses Not on filedocumented in this encounter Additional Health Concerns Assessment Noted Time PHQ-9 Depression Total Score: 0 12/06/19 18 3:00 PM EDT documented as of this encounter Care Teams Client Associate Relationship Specialty Start Date End Date System, Provider Not In PCP - General 06/24/21 12/21/21 Maile Valles, JANA Txp Post Coordinator Transplant Hepatology 11/07/17 Jack Ordoñez MD [address] [place] [phone] Consulting Physician Transplant Hepatology 01/05/18 Estephania Sharif, DarrianD Pharmacist Pharmacist 11/11/19 documented as of this encounter
--- OUTSIDE RECORDS SUMMARY | 2024-07-12 12:35 | XMS_ITS | Encounter Summary ---
Author Organization [facility] Address [address] [place] [address] Care Team Providers Care Assistant Fitness Manager Name Role Phone Maile Valles RN [...] release of HIV test results or diagnoses. [id number] Health Encounter Details Date Type Department Care Team (Late st Contact Info) Description 06/28/2021 Telephone [facility] Liver Transplant at [address] [place] [phone] Earl Mayer Social History Tobacco Use [...] * Telephone Encounter - Earl Mayer - 06/28/2021 10:41 AM EST Called and talked to patient. I wanted to see he could possible reschedule his appointment from this Monday06/29/21 to next Monday07/06/21. Patient was fine but then he decided he was feel ok anddoes not need this appointment. He states he would call back if he starts to feel bad. He knows my info documented in this encounter Plan of Treatment Upcoming Encounters Date Type Department Care Team (Late st Contact Info) Description 07/15/2024 9:00 AM EST Hospital Encounter [facility] Interventional Radiology [address] [place] [phone] Herve Carrillo MD [address] [facility] [address] [place] [phone] documented as of this encounter Visit Diagnoses Not on filedocumented in this encounter Additional Health Concerns Assessment Noted Time PHQ-9 Depression Total Score: 0 12/06/19 18 3:00 PM EDT documented as of this encounter Care Teams Assistant Fitness Manager Relationship Specialty Start Date End Date System, Provider Not In PCP - General 06/24/21 12/21/21 Maile Valles, JANA Txp Post Coordinator Transplant Hepatology 11/07/17 Jack Ordoñez MD [address] [place] [phone] Consulting Physician Transplant Hepatology 01/05/18 Estephania Sharif, PharmD Pharmacist Pharmacist 11/11/19 documented as of this encounter
--- OUTSIDE RECORDS SUMMARY | 2024-07-12 12:35 | XMS_ITS | Encounter Summary ---
Author Organization [facility] Address [address] [place] [address] Care Team Providers Care Online Marketing Analyst Name Role Phone Maile Valles RN Unavailable Unavail able Jack Ordoñez MD Unavailable [phone] Estephania Sharif PharmD Unavailable Christine vailable [...] release of HIV test results or diagnoses. [id number] Reason for Visit * Reason Comments Liver Transplant Follow-up Encounter Details Date Type Department Care Team (Late st Contact Info) Description 07/15/2021 1:35 PM EST [facility] at [facility] [address] [facility] [address] [place] [address] Jack Ordoñez MD [address] [place] [phone] Liver replaced by transplant ([facility]) (Primary Dx); Immunosuppression ([facility]-HCC) Social History Tobacco Use Types Packs/Day Years [...] PM EST documented as of this encounter Last Filed Vital Signs Vital Sign Reading Time Taken Comments Blood Pressure 170/94 07/15/2021 1:38 PM EST Pulse 89 07/15/2021 1:38 PM EST Temperature 36.9 ??C (98.4 ??F) 07/15/2021 1:38 PM ES T Respiratory Rate 18 07/15/2021 1:38 PM EST Oxygen Saturation 98% 07/15/2021 1:38 PM EST Inhaled Oxygen Concentration 98% 07/15/2021 1 :38 PM EST Weight 121 kg (266 lb 12.8 oz) 07/15/2021 1:38 P M EST Height 172.7 cm (5' 8 ) 07/15/2021 1:38 PM EST Body Mass Index 40.57 07/15/2021 1:38 PM EST documented in this encounter Patient Instructions * Patient Instructions* Jack Ordoñez MD - 07/15/2021 1:35 PM EST Plan: 1. Continue cyclosporine 100 mg twice daily. 2. ??Continue Cellcept 250 mg twice daily 3. ??Would check labs every 3 months including: CBC, renal, hepatic profile, and cyclosporine trough. 4. ??Would recommend annual visit to Dermatology for skin cancer surveillance. 5. ??Please use SPF 30 or higher sunscreen, hat, long-sleeves and sunglasses while in the sun. 6. ??Please continue age appropriate cancer screening including: colonoscopy, prostate exam. 7. ??Will check HgA1C, Vit D, Lipid profile, and urine protein / Cr ratio on annual basis with yourPCP. 8. ??Continue kidney evaluation. 9. ??Continue Entecavir daily for HBcAb+ liver. Entecavir 0.5 mg weekly. 10. Please re-establish with Bariatric surgery for weight loss. 11. Increase Miralax to twice daily. May need prep or higher dose. 13. ??RTC in 1 year documented in this encounter Progress Notes * Maile Valles RN - 07/15/2021 1:35 PM EST After visit summary including patient instructions reviewed with patient and patient's . Medication list reviewed and updated. Checked with patient to see if prescription refills and/or lab orders were needed. Updated preferred pharmacy and preferred lab information in patient demographics. Care coordinated with other team members and other medical providers as needed. Patient presents with the following needs: None verbalized at this time. * Jack Ordoñez MD - 07/15/2021 1:35 PM EST Subjective: Aiden Stauffer Jr. is a 46 y.o. 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 The patient was last seen in Sep 2020. He received a [facility] high risk donor, who was HBV ALEXANDRA [...] listed for renal txp due to weight. Still gaining. Struggling with constipation. Would like hernia repair. The following portions of the patient's history [...] laboratory results were reviewed. Assessment & Plan: 46 year old male who is s/p OLT in Sep 2017 for SAL cirrhosis. 1) Status post liver transplant due to SAL in Sep 2017: The patient's post transplant course has been complicated by AMS requiring switch to cyclosporine, uncontrolled T2DM, HTN, ESRD on HD. Labs are normal on current IS. Needs to lose weight for renal transplant. Continue cyclosporine 100 mg twice daily. ??Continue Cellcept 250 mg twice daily??Would check labs every 3 months including: CBC, renal, hepatic profile, and cyclosporine trough. ??Would recommend annual visit to Dermatology for skincancer surveillance. ??Please use SPF 30 or higher sunscreen, hat, long-sleeves and sunglasses while in the sun. ??Please continue age appropriate cancer screening including: colonoscopy, prostate exam. ??Will check HgA1C, Vit D, Lipid profile, and urine protein / Cr ratio on annual basis with yourPCP. ??Continue kidney evaluation. ??Continue Entecavir daily for HBcAb+ liver. Entecavir 0.5 mg weekly. Please re-establish with Bariatric surgery for weight loss. Increase Miralax to twice daily. May need prep or higher dose. ??RTC in 1 year Plan: 1. Continue cyclosporine 100 mg twice daily. 2. ??Continue Cellcept 250 mg twice daily 3. ??Would check labs every 3 months including: CBC, renal, hepatic profile, and cyclosporine trough. 4. ??Would recommend annual visit to Dermatology for skin cancer surveillance. 5. ??Please use SPF 30 or higher sunscreen, hat, long-sleeves and sunglasses while in the sun. 6. ??Please continue age appropriate cancer screening including: colonoscopy, prostate exam. 7. ??Will check HgA1C, Vit D, Lipid profile, and urine protein / Cr ratio on annual basis with yourPCP. 8. ??Continue kidney evaluation. 9. ??Continue Entecavir daily for HBcAb+ liver. Entecavir 0.5 mg weekly. 10. Please re-establish with Bariatric surgery for weight loss. 11. Increase Miralax to twice daily. May need prep or higher dose. 12. ??RTC in 1 year This note was completely [...] endoscopic procedures. I spoke with the RN youth care specialist today in regardsto this patient. Finally, I have reviewed independently any interval liver pathology. Spent over 40minutes on the care of this patient today. documented in this encounter Plan of Treatment Upcoming Encounters Date Type Department Care Team (Late st Contact Info) Description 07/15/2024 9:00 AM EST Hospital [facility] Interventional Radiology [address] [place] [phone] Herve Carrillo MD [address] [facility] [address] Surgery [place] [phone] documented as of this encounter Visit Diagnoses Diagnosis Liver replaced by transplant (CMS-HCC)- Primary Liver replaced by transplant Immunosuppression (CMS-HCC) documented in this encounter Additional Health Concerns Assessment Noted Time PHQ-9 Depression Total Score: 0 12/06/19 18 3:00 PM EDT documented as of this encounter Care Teams Online Marketing Analyst Relationship Specialty Start Date End Date System, Provider Not In PCP - General 06/24/21 12/21/21 Maile Valles, RN Txp Post Coordinator Transplant Hepatology 11/07/17 Jack Ordoñez MD [address] [place] [phone] Consulting Physician Transplant Hepatology 01/05/18 Estephania Sharif, DarrianD Pharmacist Pharmacist 11/11/19 documented as of this encounter
--- OUTSIDE RECORDS SUMMARY | 2024-07-12 12:35 | XMS_ITS | Encounter Summary ---
Author Organization [facility] Address [address] [place] [address] Care Team Providers Care Tower Control Operator Name Role Phone Edgar Fournier MD Primary Care Provider [phone] Maile Valles RN Unavailable Unavail able Jack Ordoñez MD Unavailable [phone] Estephania Sharif PharmD Unavailable Christine vailable [...] release of HIV test results or diagnoses. [id number] Health Encounter Details Date Type Department Care Team (Late st Contact Info) Description 06/15/2021 Telephone [facility] Transplant Hepatobiliary at [place] [id number] [facility] [address] [place] [address] Earl Mayer Social History Tobacco Use [...] * Telephone Encounter - Earl Mayer - 06/15/2021 11:19 AM EDT Talked to patient and made an video visit with Dr Montalvo. Patient wanted a plan before he came outhere, [place]. He really wanted surgery. Told him that him and Dr Montalvo canmake a plan. He has my name and number. Future Appointments Date Time Provider Department Center 06/18/2021 11:30 AM Marcelino Montalvo III, MD [facility] HEP [facility] 06/24/2021 11:00 AM Destin Rawls MD [facility] NEPH [place] [facility] 07/15/2021 1:35 PM [facility] documented in this encounter Plan of Treatment Upcoming Encounters Date Type Department Care Team (Late st Contact Info) Description 07/15/2024 9:00 AM EST Hospital Encounter [facility] Interventional Radiology [address] [place] [address] Herve Carrillo MD [address] [facility] [address] [place] [phone] documented as of this encounter Visit Diagnoses Not on filedocumented in this encounter Additional Health Concerns Assessment Noted Time PHQ-9 Depression Total Score: 0 12/06/19 18 3:00 PM EDT documented as of this encounter Care Teams Tower Control Operator Relationship Specialty Start Date End Date Edgar Fournier MD [address] [place] [address] [place] [phone] PCP - General 08/18/17 06/23/21 Maile Valles, JANA Txp Post Coordinator Transplant Hepatology 11/07/17 Jack Ordoñez MD [address] [place] [phone] Consulting Physician Transplant Hepatology 01/05/18 Estephania Sharif, PharmD Pharmacist Pharmacist 11/11/19 documented as of this encounter
--- OUTSIDE RECORDS SUMMARY | 2024-07-12 12:35 | XMS_ITS | Encounter Summary ---
Author Organization [facility] Address [address] [place] [address] Care Team Providers Care Educational Aide Name Role Phone Edgar Fournier MD Primary Care Provider [phone] Maile Valles RN Unavailable Unavail able Jack Ordoñez MD Unavailable [phone] Estephania Sharif PharmD Unavailable Christine vailable [...] release of HIV test results or diagnoses. [id number] Reason for Visit * Reason Comments Advice Only Encounter Details Date Type Department Care Team (Late st Contact Info) Description 06/11/2021 Telephone [facility] Liver Transplant at [address] [place] [address] Racheal Hair MA Advice Only Social History Tobacco Use [...] Telephone Encounter - Lyndsey Lozano RN - 06/11/2021 1:24 PM EDT Called patient with update that referral sent to Dr. Montalvo for eval. Satisfied with plan. * Telephone Encounter - Jack Ordoñez MD - 06/11/2021 1:19 PM EDT Sure * Telephone Encounter - Lyndsey Lozano RN - 06/11/2021 12:58 PM EDT Called patient to discuss. Patient reports increased size in hernia. Endorsing intermittent pain and nausea associated with the pain. Denies vomiting. Constipation reported but has some relief with daily Miralax and stool softeners. Had recent appt at for kidney referral. [facility] recommending having h ernia fixed. Patient does not appear to be in any distress. Informed patient will discuss with Txp Provider and update patient with recs. Instructed patient to monitor and if pain worsens, develops vomiting, poor po intake, or discoloration to site to go to ED for eval. Demonstrates understanding and satisfied with advice. * Telephone Encounter - Racheal Hair MA - 06/11/2021 12:52 PM EDT Patient calling to speak with his coordinator; is having a lot of pain due to his hernia. States it's getting a lot bigger and can't sit down without it causing a lot of pain; was at lunch with is family and had to get up, couldn't finish. Please advise. T documented in this encounter Plan of Treatment Upcoming Encounters Date Type Department Care Team (Late st Contact Info) Description 07/15/2024 9:00 AM EST Hospital Encounter [facility] Interventional Radiology [address] [place] [phone] Herve Carrillo MD [address] [facility] [address] [place] [phone] documented as of this encounter Visit Diagnoses Not on filedocumented in this encounter Additional Health Concerns Assessment Noted Time PHQ-9 Depression Total Score: 0 12/06/19 18 3:00 PM EDT documented as of this encounter Care Teams Educational Aide Relationship Specialty Start Date End Date Edgar Fournier MD [address] [place] [address] [place] [phone] PCP - General 08/18/17 06/23/21 Maile Valles, RN Txp Post Coordinator Transplant Hepatology 11/07/17 Jack Ordoñez MD [address] [place] [phone] Consulting Physician Transplant Hepatology 01/05/18 Estephania Sharif, DarrianD Pharmacist Pharmacist 11/11/19 documented as of this encounter
--- OUTSIDE RECORDS SUMMARY | 2024-07-12 12:35 | XMS_ITS | Encounter Summary ---
Author Organization [facility] Address [address] [place] [address] Care Team Providers Care Paper Supervisor Name Role Phone Maile Valles RN [...] release of HIV test results or diagnoses. [id number] Health Encounter Details Date Type Department Care Team (Late st Contact Info) Description 07/15/2021 Telephone [facility] Kidney Transplant at [address] [phone] Belinda Ladd RN Social History Tobacco Use Types Packs/Day [...] Telephone Encounter - Flory Liang MA - 07/16/2021 9:51 AM EST Called pt and unable to lvm, mailbox full * Telephone Encounter - Belinda Ladd RN - 07/15/2021 3:49 PM EST Patient LVM asking how long a colonoscopy was good for. Sending message to managing coordinator. documented in this encounter Plan of Treatment Upcoming Encounters Date Type Department Care Team (Late st Contact Info) Description 07/15/2024 9:00 AM EST Hospital Encounter [facility] Interventional Radiology [address] [place] [phone] Herve Carrillo MD 3130 [facility] 3200 [place] [phone] documented as of this encounter Visit Diagnoses Not on filedocumented in this encounter Additional Health Concerns Assessment Noted Time PHQ-9 Depression Total Score: 0 12/06/19 18 3:00 PM EDT documented as of this encounter Care Teams Paper Supervisor Relationship Specialty Start Date End Date System, Provider Not In PCP - General 06/24/21 12/21/21 Maile Valles, JANA Txp Post Coordinator Transplant Hepatology 11/07/17 Jack Ordoñez MD [address] [place] [phone] Consulting Physician Transplant Hepatology 01/05/18 Estephania Sharif, DarrianD Pharmacist Pharmacist 11/11/19 documented as of this encounter
--- OUTSIDE RECORDS SUMMARY | 2024-07-12 12:35 | XMS_ITS | Encounter Summary ---
Author Organization [facility] Address [address] [place] [address] Care Team Providers Care Icing Machine Operator Name Role Phone Edgar Fournier MD Primary Care Provider [phone] Maile Valles RN Unavailable Unavail able Jack Ordoñez MD Unavailable [phone] Estephania Sharif PharmD Unavailable Christine vailable [...] release of HIV test results or diagnoses. [id number] Reason for Visit * Reason Comments Referral Closed Encounter Details Date Type Department Care Team (Late st Contact Info) Description 03/03/2021 Telephone [facility] Kidney Transplant at [address] [place] [phone] Joselin Stanley MA Referral Closed Social History Tobacco Use Types Packs/Day Years [...] Telephone Encounter - Joselin Stanley MA - 03/03/2021 9:38 AM EDT Called patient to notify him of referral closure due to no showing his appt on 03/02/21. No answer, no vm. Referral closed for 6 months and can be referred back after 09/02/2021. documented in this encounter Plan of Treatment Upcoming Encounters Date Type Department Care Team (Late st Contact Info) Description 07/15/2024 9:00 AM EST Hospital Encounter [facility] Interventional Radiology [address] [place] [phone] Herve Carrillo MD 3130 [facility] 3200 [place] [address] documented as of this encounter Visit Diagnoses Not on filedocumented in this encounter Additional Health Concerns Assessment Noted Time PHQ-9 Depression Total Score: 0 12/06/19 18 3:00 PM EDT documented as of this encounter Care Teams Icing Machine Operator Relationship Specialty Start Date End Date Edgar Fournier MD [address] [place] [address] [place] [address] PCP - General 08/18/17 06/23/21 Maile Valles, JANA Txp Post Coordinator Transplant Hepatology 11/07/17 Jack Ordoñez MD [address] [place] [phone] Consulting Physician Transplant Hepatology 01/05/18 Estephania Sharif, DarrianD Pharmacist Pharmacist 11/11/19 documented as of this encounter
--- OUTSIDE RECORDS SUMMARY | 2024-07-12 12:35 | XMS_ITS | Encounter Summary ---
Author Organization [facility] Address [address] [place] [address] Care Team Providers Care Asphalt Heater Operator Name Role Phone Edgar Fournier MD Primary Care Provider [phone] Maile Valles RN Unavailable Unavail able Jack Ordoñez MD Unavailable [phone] Estephania Sharif PharmD Unavailable Christine vailable [...] release of HIV test results or diagnoses. [id number] Encounter Details Date Type Department Care Team (Latest Contact Info) Description 02/10/2021 Travel Social History Tobacco Use Types Packs/Day [...] Encounter [facility] Interventional Radiology [address] [place] [phone] Herve Carrillo MD 3130 [facility] [place] [address] [place] [phone] documented as of this encounter Visit Diagnoses Not on filedocumented in this encounter Additional Health Concerns Assessment Noted Time PHQ-9 Depression Total Score: 0 12/06/19 18 3:00 PM EDT documented as of this encounter Care Teams Asphalt Heater Operator Relationship Specialty Start Date End Date Edgar Fournier MD [address] [place] [address] [place] [address] PCP - General 08/18/17 06/23/21 Maile Valles, RN Txp Post Coordinator Transplant Hepatology 11/07/17 Jack Ordoñez MD [address] [place] [phone] Consulting Physician Transplant Hepatology 01/05/18 Estephania Sharif, DarrianD Pharmacist Pharmacist 11/11/19 documented as of this encounter
--- OUTSIDE RECORDS SUMMARY | 2024-07-12 12:35 | XMS_ITS | Encounter Summary ---
Author Organization [facility] Address [address] [place] [address] Care Team Providers Care Medical Biller Name Role Phone Edgar Fournier MD Primary Care Provider [phone] Maile Valles RN Unavailable Unavail able Jack Ordoñez MD Unavailable [phone] Estephania Sharif PharmD Unavailable Christine vailable [...] release of HIV test results or diagnoses. [id number] Health Encounter Details Date Type Department Care Team (Late st Contact Info) Description 03/01/2021 Orders Only [facility] Kidney Transplant at [place] [phone] [facility] [address] [place] [address] Leona Richey RN Pre-transplant evaluation for kidney transplant (Primary Dx); ESRD (end stage renal disease) on dialysis ([facility]); Routine history and physical examination of adult [...] [facility] Interventional Radiology [address] [place] [phone] Herve Carrillo MD [address]60 [facility] [address] [place] [address] Pending Results Name Type Priority Associated Diagnoses Date /Time Renal TX Recipient Lab Routine Pre-transplant evaluation for kidney transplant ESRD (end stage renal disease) on dialysis ([facility]) Routine history and physical examination of adult 07/15/2021 1:29 PM EST Scheduled Orders Name Type Priority Associated Diagnoses Orde r Schedule Renal TX Recipient Lab Routine Pre-transplant evaluation for kidney transplant ESRD (end stage renal disease) on dialysis ([facility]) Routine history and physical examination of adult 1 Occurrences starting 03/01/2021 until 09/13/2021 CMV IgG & IgM Lab Routine Pre-transplant evaluation for kidney transplant ESRD (end stage renal disease) on dialysis ([facility]) Routine history and physical examination of adult 1 Occurrences starting 03/01/2021 until 09/13/2021 ECG 12 lead (MUSE) ECG Routine Pre-transplant evaluation for kidney transplant ESRD (end stage renal disease) on dialysis ([facility]) Routine history and physical examination of adult Ordered: 03/01/2021 documented as of this encounter Results * (ABNORMAL) Quantiferon TB Gold Plus (07/15/2021 1:29 PM EST) QuantiFERON TB1 Ag Value 2.11 IU/mL 07/18/2021 6:01 PM EST [facility] QuantiFERON TB2 Ag Value 1.83 IU/mL 07/18/2021 6:01 PM EST [facility] QuantiFERON Criteria Comment 07/16/2021 8:18 PM EST [facility] Comment: The QuantiFERON-TB Gold Plus result is determined by subtracting the Nil value from either TB antigen (Ag) tube. The mitogen tube serves as a control for the test. QuantiFERON Mitogen >10.00 IU/mL 07/18/2021 6:01 PM EST [facility] QuantiFERON Nil 1.52 IU/mL 6:01 PM EST [facility] QuantiFERON TB Gold Positive(A) Negative 07/18/2021 6:01 PM EST [facility] Comment: The specimen received for QuantiFERON testing was incubated by the ordering institution. Specific procedures outlined in our Directory of Services and in the package insert for the QuantiFERON Gold (In Tube) test must be followed to enable for proper stimulation of cells for the production of interferon gamma. Chemiluminescence immunoassay methodology Whole Blood 07/15/2021 1:29 PM EST 07/18/2021 6:06 PM EST Narrative [facility] - 07/18/2021 6:06 PM EST PERFORMED AT: [facility] [address] [id number] HEALTH AND SAFETY CONSULTANT: Octavio Best, PhD ?? PHONE: [phone] [facility] LAB BLOOD ORDERABLES Final Resul t [facility] [address] [place] [address] * Uric acid (07/15/2021 1:29 PM EST) Uric Acid 5.1 3.8 - 8.7 mg/dL 07/15/2021 2:25 PM EST [facility] Plasma 07/15/2021 1:29 PM EST 07/15/2021 1:52 PM EST us [facility] LAB BLOOD ORDERABLES Final Resul t Performing Organization Address [facility] Co de Phone Number [facility] [address] * (ABNORMAL) Varicella zoster antibody, IgG (07/15/2021 1:29 PM EST) Varicella IgG Positive( A) Negative 07/15/2021 2:48 PM EST [facility] Comment:Result indicates the presence of detectable VZV IgG antibodies. A positive result is generally indicative of exposure to the pathogen or administration of specific immunoglobulins, but it is no indication of active infection or stage of disease. This test is not approved for determining vaccine-induced immunity to varicella zoster virus. VZV NUM >4000.00( H) 0.00 - 134.99 INDEX 07/15/2021 2:48 PM EST [facility] Serum 07/15/2021 1:29 PM EST 07/15/2021 1:53 PM EST us [facility] LAB BLOOD ORDERABLES Final Resul t Performing Organization Address [facility] Co de Phone Number [facility] [address] * EBV Antibody IgM (07/15/2021 1:29 PM EST) Pathologist [facility] EBV VCA IgM Negative Negative 07/15/2021 2:49 PM EST [facility] Comment:Absence of detectabl e VCA IgM antibodies. If exposure to [place] virus is suspected despite a negative finding, a second sample should be collected and tested no less than one to two weeks later. EBV IGM NUM 22.20 0.00 - 35.99 U/mL 07/15/2021 2:49 PM EST [facility] Serum 07/15/2021 1:29 PM EST 07/15/2021 1:53 PM EST us [facility] LAB BLOOD ORDERABLES Final Resul t Performing Organization Address [facility] Co de Phone Number [facility] [address] * (ABNORMAL) [place] virus VCA IgG Antibody (07/15/2021 1:29 PM EST) EBV VCA IgG Positive( A) Negative 07/15/2021 2:48 PM EST [facility] Comment:Presence of detectab le VCA IgG antibodies. A positive result indicates current or past exposure to [place] virus. EBV IGG NUM >750.00(H ) 0.00 - 17.99 U/mL 07/15/2021 2:48 PM EST [facility] Serum 07/15/2021 1:29 PM EST 07/15/2021 1:53 PM EST [facility] BLOOD ORDERABLES Final Resul t Performing Organization Address City/[facility]/ZIP Co de Phone Number [facility] [address] [place] [address] * HIV-1 and HIV-2 antibodies (07/15/2021 1:29 PM EST) Pathologist [facility] HIV 1+2 AB/AGN Nonreactive Nonreactive 07/15/2021 2:44 PM EST [facility] Serum 07/15/2021 1:29 PM EST 07/15/2021 1:52 PM EST Narrative [facility] - 07/15/2021 2:44 PM EST HIV-1 p24 Antigen and HIV-1/HIV-2 Antibody not detected. [facility] BLOOD ORDERABLES Final Resul t [facility] [address] [place] [address] * Hepatitis C antibody (07/15/2021 1:29 PM EST) HCV Ab Nonreactive Nonreactive 07/15/2021 2:56 PM EST [facility] Comment:Health Department no tified in accordance with reportable infectious disease guidelines. Serum 07/15/2021 1:29 PM EST 07/15/2021 1:52 PM EST Narrative [facility] - 07/15/2021 2:56 PM EST Antibodies to HCV not detected; does not exclude the possibility of exposure to HCV. [facility] LAB BLOOD ORDERABLES Final Resul t Performing Organization Address City/[facility]/ZIP Co de Phone Number [facility] [address] * (ABNORMAL) Hepatitis B surface antibody (07/15/2021 1:29 PM EST) HBSAB NUMBER 214.00(H) 0.00 - 7.99 mIU/mL 07/15/2021 3:00 PM EST [facility] Hep B S Ab Reactive( A) Nonreactive 07/15/2021 3:00 PM EST [facility] Serum 07/15/2021 1:29 PM EST 07/15/2021 1:52 PM EST [facility] - 07/15/2021 3:00 PM EST Individual is considered immune to HBV infection. [facility] LAB BLOOD ORDERABLES Final Resul t Performing Organization Address [facility] Co de Phone Number [facility] [address] * Hepatitis B surface antigen (07/15/2021 1:29 PM EST) Hep B Surface Ag Nonreactive Nonreactive 07/15/2021 2:51 PM EST [facility] Comment:Health Department no tified in accordance with reportable infectious disease guidelines. Serum 07/15/2021 1:29 PM EST 07/15/2021 1:52 PM EST [facility] - 07/15/2021 2:51 PM EST Specimen is considered negative for HBsAg. [facility] BLOOD ORDERABLES Final Resul t Performing Organization Address [facility] Co de Phone Number [facility] [address] * (ABNORMAL) Hepatitis B Core Antibody (07/15/2021 1:29 PM EST) Hep B Core Total Ab Reactive( A) Nonreactive 07/15/2021 2:44 PM EST [facility] Comment: Health Department notified in accordance with reportable infectious disease guidelines. Health Department notified in accordance with reportable infectious disease guidelines. Serum 07/15/2021 1:29 PM EST 07/15/2021 1:52 PM EST Narrative [facility] - 07/15/2021 2:44 PM EST A reactive final interpretation indicates presumptive evidence of HBV; anti-HBc antibodies were detected in the sample which suggests either on-going or previous HBV infection. us [facility] LAB BLOOD ORDERABLES Final Resul t Performing Organization Address [facility] Co de Phone Number [facility] [address] [place] [address] * (ABNORMAL) PTH (07/15/2021 1:29 PM EST) Pathologist [facility] PTH 708.0(H) 12.0 - 88.0 pg/mL 07/15/2021 2:39 PM EST [facility] Serum 07/15/2021 1:29 PM EST 07/15/2021 1:52 PM EST [facility] LAB BLOOD ORDERABLES Final Resul t Performing Organization Address [facility] Co de Phone Number [facility] [address] [place] [address] * Magnesium (07/15/2021 1:29 PM EST) Magnesium 2.1 1.5 - 2.5 mg/dL 07/15/2021 2:25 PM EST [facility] Plasma 07/15/2021 1:29 PM EST 07/15/2021 1:52 PM EST us [facility] LAB BLOOD ORDERABLES Final Resul t Performing Organization Address [facility] Co de Phone Number [facility] [address] [place] [address] * (ABNORMAL) Lipid Profile (07/15/2021 1:29 PM EST) Cholesterol, Total 291(H) 0 - 200 mg/dL 07/15/2021 2:25 PM EST [facility] Triglycerides 606(H) 10 - 149 mg/dL 07/15/2021 2:25 PM EST [facility] HDL 32(L) 60 - 92 mg/dL 07/15/2021 2:25 PM EST [facility] Comment: ?LIPID PROFILE INTERPRETATION ?CHOLESTEROL,TOTAL(mg/dL) [...] 9- to 12- hour fast. LDL Cholesterol See Note mg/dL 2:25 PM EST [facility] Comment:LDL calculation is i nvalid because the triglyceride level is equal to or greater than 400 mg/dl. Plasma 07/15/2021 1:29 PM EST 07/15/2021 1:52 PM EST Narrative [facility] - 07/15/2021 2:25 PM EST Must the patient be fasting for this test?->No [facility] LAB BLOOD ORDERABLES Final Resul t Performing Organization Address [facility] Co de Phone Number [facility] [address] * (ABNORMAL) Hepatic Function Panel (07/15/2021 1:29 PM EST) Total Bilirubin 0.5 0.0 - 1.5 mg/dL 07/15/2021 2:25 PM EST [facility] Bilirubin, Direct 0.08 0.00 - 0.40 mg/dL 07/15/2021 2:25 PM EST [facility] AST 13 13 - 39 U/L 07/15/2021 2:25 PM EST [facility] ALT 9 7 - 52 U/L 07/15/2021 2:25 PM EST [facility] Alkaline Phosphatase 141(H) 36 - 125 U/L 07/15/2021 2:25 PM EST [facility] Total Protein 7.9 6.4 - 8.9 g/dL 07/15/2021 2:25 PM EST [facility] Albumin 4.8 3.5 - 5.7 g/dL 07/15/2021 2:25 PM EST [facility] Bilirubin, Indirect 0.42 0.00 - 1.10 mg/dL 07/15/2021 2:25 PM EST [facility] Plasma 07/15/2021 1:29 PM EST 07/15/2021 1:52 PM EST [facility] LAB BLOOD ORDERABLES Final Resul t Performing Organization Address [facility] Co de Phone Number [facility] [address] * (ABNORMAL) Hemoglobin A1c (07/15/2021 1:29 PM EST) Hemoglobin A1C 6.5(H) 4.0 - 5.6 % 07/15/2021 2:56 PM EST [facility] Comment: Hemoglobin A1c [...] and other individual patient considerations. Whole Blood 07/15/2021 1:29 PM EST 07/15/2021 1:52 PM EST us [facility] BLOOD ORDERABLES Final Resul t Performing Organization Address City/State/[facility] Co de Phone Number [facility] [address] [place] [id number] * Differential (07/15/2021 1:29 PM EST) Neutrophils Relative 52.8 40.0 - 80.0 % 07/15/2021 2:03 PM EST [facility] Lymphocytes Relative 35.8 15.0 - 45.0 % 07/15/2021 2:03 PM EST [facility] Monocytes Relative 9.7 0.0 - 12.0 % 07/15/2021 2:03 PM EST [facility] Eosinophils Relative 1.5 0.0 - 8.0 % 07/15/2021 2:03 PM EST [facility] Basophils Relative 0.2 0.0 - 1.0 % 07/15/2021 2:03 PM EST [facility] nRBC 0 0 - 0 /100 WBC 07/15/2021 2:03 PM EST [facility] Neutrophils Absolute 1,901 1,500 - 7,800 /uL 07/15/2021 2:03 PM EST [facility] Lymphocytes Absolute 1,289 850 - 3,900 /uL 07/15/2021 2:03 PM EST [facility] Monocytes Absolute 349 200 - 950 /uL 07/15/2021 2:03 PM EST [facility] Eosinophils Absolute 54 15 - 500 /uL 07/15/2021 2:03 PM EST [facility] Basophils Absolute 7 0 - 200 /uL 07/15/2021 2:03 PM [facility] Whole Blood 07/15/2021 1:29 PM EST 07/15/2021 1:52 PM EST us [facility] BLOOD ORDERABLES Final Resul t Performing Organization Address City/State/[facility] Co de Phone Number [facility] [address] * (ABNORMAL) CBC (07/15/2021 1:29 PM EST) WBC 3.6(L) 3.8 - 10.8 10E3/uL 07/15/2021 2:03 PM EST [facility] RBC 3.50(L) 4.20 - 5.80 10E6/uL 07/15/2021 2:03 PM EST [facility] Hemoglobin 11.9(L) 13.2 - 17.1 g/dL 07/15/2021 2:03 PM [facility] Hematocrit 35.5(L) 38.5 - 50.0 % 07/15/2021 2:03 PM EST [facility] MCV 101.4(H) 80.0 - 100.0 fL 07/15/2021 2:03 PM [facility] MCH 34.1(H) 27.0 - 33.0 pg 07/15/2021 2:03 PM EST [facility] MCHC 33.7 32.0 - 36.0 g/dL 07/15/2021 2:03 PM [facility] RDW 14.1 11.0 - 15.0 % 07/15/2021 2:03 PM EST [facility] Platelets 213 140 - 400 10E3/uL 07/15/2021 2:03 PM EST [facility] MPV 7.4(L) 7.5 - 11.5 fL 07/15/2021 2:03 PM EST [facility] Whole Blood 07/15/2021 1:29 PM EST 07/15/2021 1:52 PM EST us [facility] LAB BLOOD ORDERABLES Final Resul t [facility] [address] documented in this encounter Visit Diagnoses Diagnosis Pre-transplant evaluation for kidney transplant- Primary ESRD (end stage renal disease) on dialysis ([facility]) End stage renal disease Routine history and physical examination of adult documented in this encounter Additional Health Concerns Assessment Noted Time PHQ-9 Depression Total Score: 0 12/06/19 18 3:00 PM EDT documented as of this encounter Care Teams Medical Biller Relationship Specialty Start Date End Date Edgar Fournier MD [address] [place] [address] [place] [address] PCP - General 08/18/17 06/23/21 Maile Valles, RN Txp Post Coordinator Transplant Hepatology 11/07/17 Jack Ordoñez MD [address] [place] [phone] Consulting Physician Transplant Hepatology 01/05/18 Estephania Sharif, DarrianD Pharmacist Pharmacist 11/11/19 documented as of this encounter
--- OUTSIDE RECORDS SUMMARY | 2024-07-12 12:35 | XMS_ITS | Encounter Summary ---
Author Organization [facility] Address [address] [place] [address] Care Team Providers Care Cable Hooker Name Role Phone Edgar Fournier MD Primary Care Provider [phone] Maile Valles RN Unavailable Unavail able Jack Ordoñez MD Unavailable [phone] Estephania Sharif PharmD Unavailable Christine vailable [...] release of HIV test results or diagnoses. [id number] Reason for Visit * Reason Comments Medication Refill Encounter Details Date Type Department Care Team (Late st Contact Info) Description 06/22/2021 Refill [facility] Liver Transplant at [facility] [address] [facility] [address] [place] [address] Jack Ordoñez MD [address] [place] [address] Social History Tobacco Use Types [...] Encounter [facility] Interventional Radiology [address] [place] [phone] Herve Carrillo MD 3[address] [facility] [address] [place] [phone] documented as of this encounter Visit Diagnoses Not on filedocumented in this encounter Additional Health Concerns Assessment Noted Time PHQ-9 Depression Total Score: 0 12/06/19 18 3:00 PM EDT documented as of this encounter Care Teams Cable Hooker Relationship Specialty Start Date End Date Edgar Fournier MD [address] [place] [address] [place] [address] PCP - General 08/18/17 06/23/21 Maile Valles, JANA Txp Post Coordinator Transplant Hepatology 11/07/17 Jack Ordoñez MD [address] [place] [phone] Consulting Physician Transplant Hepatology 01/05/18 Estephania Sharif, DarrianD Pharmacist Pharmacist 11/11/19 documented as of this encounter
--- OUTSIDE RECORDS SUMMARY | 2024-07-12 12:35 | XMS_ITS | Encounter Summary ---
Author Organization [facility] Address [address] [place] [address] Care Team Providers Care Retail Reset Merchandiser Name Role Phone Edgar Fournier MD Primary Care Provider [phone] Maile Valles RN Unavailable Unavail able Jack Ordoñez MD Unavailable [phone] Estephania Sharif PharmD Unavailable Christine vailable [...] release of HIV test results or diagnoses. [id number] Reason for Visit * Reason Comments Return Call Encounter Details Date Type Department Care Team (Late st Contact Info) Description 03/10/2021 Telephone [facility] Kidney Transplant at [address] [place] [phone] Joselin Stanley MA Return Call Social History Tobacco Use Types [...] Telephone Encounter - Joselin Stanley MA - 03/10/2021 10:34 AM EDT Received message from Maile RN in liver transplant that patient called in about his referral being closed with kidney. Called patient back to remind him of our conversation on 02/19/21 about him having eval testing for [facility] scheduled on the same day and patient decided to reschedule his testing there so the appt with was not rescheduled to April. Patient said he attempted to reschedule his testing with [facility], but was unable to. So when he received the confirmation call from , 3 days prior to the appt, he selected for the appt to be rescheduled. I do not see that in the appt information, but also reminded him that we need notified 7 days prior to the appt so it wouldn't count as a no show. Reminded him that he was advised of this policy on 01/15/21 and again on 02/19. He verbalized understanding and had no further questions at this time. documented in this encounter Plan of Treatment Upcoming Encounters Date Type Department Care Team (Late st Contact Info) Description 07/15/2024 9:00 AM EST Hospital Encounter [facility] Interventional Radiology [address] [place] [phone] Herve Carrillo MD [address] [facility] [place] [phone] documented as of this encounter Visit Diagnoses Not on filedocumented in this encounter Additional Health Concerns Assessment Noted Time PHQ-9 Depression Total Score: 0 12/06/19 18 3:00 PM EDT documented as of this encounter Care Teams Retail Reset Merchandiser Relationship Specialty Start Date End Date Edgar Fournier MD [address] [place] [address] [place] [address] PCP - General 08/18/17 06/23/21 Maile Valles, JANA Txp Post Coordinator Transplant Hepatology 11/07/17 Jack Ordoñez MD [address] [place] [phone] Consulting Physician Transplant Hepatology 01/05/18 Estephania Sharif, DarrianD Pharmacist Pharmacist 11/11/19 documented as of this encounter
--- OUTSIDE RECORDS SUMMARY | 2024-07-12 12:35 | XMS_ITS | Encounter Summary ---
Author Organization [facility] Address [address] [place] [address] Care Team Providers Care Shuttler Car Name Role Phone Maile Valles RN Unavailable [...] release of HIV test results or diagnoses. [id number] Health Encounter Details Date Type Department Care Team (Late st Contact Info) Description 07/07/2021 Chart Note [facility] Kidney Transplant at [place] [id number] [facility] [address] [place] [address] Renee Barrett RN Testing letter composed Social History Tobacco Use Types Packs/Day Years [...] Progress Notes * Renee Barrett RN - 07/07/2021 8:32 AM EST Testing letter composed Chart to REBEKAH Ruth - will schedule patient for evaluation appointment and follow testing documented in this encounter Plan of Treatment Upcoming Encounters Date Type Department Care Team (Late st Contact Info) Description 07/15/2024 9:00 AM EST Hospital Encounter [facility] Interventional Radiology [address] [place] [phone] Herve Carrillo MD [address] [facility] [address] [facility] [place] [phone] documented as of this encounter Visit Diagnoses Not on filedocumented in this encounter Additional Health Concerns Assessment Noted Time PHQ-9 Depression Total Score: 0 12/06/19 18 3:00 PM EDT documented as of this encounter Care Teams Shuttler Car Relationship Specialty Start Date End Date System, Provider Not In PCP - General 06/24/21 12/21/21 Maile Valles, RN Txp Post Coordinator Transplant Hepatology 11/07/17 Jack Ordoñez MD [address] [place] [phone] Consulting Physician Transplant Hepatology 01/05/18 Estephania Sharif, DarrianD Pharmacist Pharmacist 11/11/19 documented as of this encounter
--- OUTSIDE RECORDS SUMMARY | 2024-07-12 12:35 | XMS_ITS | Encounter Summary ---
Author Organization [facility] Address [address] [place] [address] Care Team Providers Care Internal Corrosion Specialist Name Role Phone Edgar Fournier MD Primary Care Provider [phone] Maile Valles RN Unavailable Unavail able Jack Ordoñez MD Unavailable [phone] Estephania Sharif PharmD Unavailable Christine vailable [...] release of HIV test results or diagnoses. [id number] Health Encounter Details Date Type Department Care Team (Late st Contact Info) Description 01/29/2021 Chart Note [facility] Kidney Transplant at [facility] [address] [facility] [address] [place] [address] Ayden Christian, JANA Vitamin D deficiency; Pulmonary HTN ([facility]); Vertebral osteomyelitis ([facility]) Social History Tobacco Use Types Packs/Day [...] as of this encounter Progress Notes * Ayden Christian RN - 01/29/2021 3:20 PM EDT Records reviewed for kidney transplant evaluation appointment. Fax request sent to for colonoscopy results. documented in this encounter Plan of Treatment Upcoming Encounters Date Type Department Care Team (Late st Contact Info) Description 07/15/2024 9:00 AM [facility] Hospital Encounter [facility] Interventional Radiology [address] [place] [phone] Herve Carrillo MD [address] [facility] [address] [place] [phone] documented as of this encounter Visit Diagnoses Diagnosis Vitamin D deficiency Unspecified vitamin D deficiency Pulmonary HTN (CMS-HCC) Vertebral osteomyelitis (CMS-HCC) Unspecified osteomyelitis, other specified site documented in this encounter Additional Health Concerns Assessment Noted Time PHQ-9 Depression Total Score: 0 12/06/19 18 3:00 PM EDT documented as of this encounter Care Teams Internal Corrosion Specialist Relationship Specialty Start Date End Date Edgar Fournier MD [address] [place] [address] [place] [address] PCP - General 08/18/17 06/23/21 Maile Valles, JANA Txp Post Coordinator Transplant Hepatology 11/07/17 Jack Ordoñez MD [address] [place] [phone] Consulting Physician Transplant Hepatology 01/05/18 Estephania Sharif, DarrianD Pharmacist Pharmacist 11/11/19 documented as of this encounter
--- OUTSIDE RECORDS SUMMARY | 2024-07-12 12:35 | XMS_ITS | Encounter Summary ---
Author Organization [facility] Address [address] [place] [address] Care Team Providers Care It Project Lead Name Role Phone Maile Valles RN Unavailable Unavail able Jack Ordoñez MD Unavailable [phone] Estephania Sharif PharmD Unavailable Christine vailable [...] release of HIV test results or diagnoses. [id number] Reason for Visit * Reason Comments 1st call schedule clinic Encounter Details Date Type Department Care Team (Late st Contact Info) Description 07/12/2021 Telephone [facility] Kidney Transplant at [address] [place] [address] Flory Liang MA 1st call schedule clinic Social History Tobacco Use Types Packs/Day Years [...] Encounter - Flory Liang MA - 07/16/2021 10:54 AM EST Pt called in Scheduled for 09/21/2021 at 12:30 No reminder letter sent per patient because he has mychart * Telephone Encounter - Flory Liang MA - 07/12/2021 1:55 PM EST Called to schedule [facility] No answer lvm Follow up 1 week documented in this encounter Plan of Treatment Upcoming Encounters Date Type Department Care Team (Late st Contact Info) Description 07/15/2024 9:00 AM EST Hospital Encounter [facility] Interventional Radiology [address] [place] [phone] Herve Carrillo MD [address] [facility] [address] [place] [phone] documented as of this encounter Visit Diagnoses Not on filedocumented in this encounter Additional Health Concerns Assessment Noted Time PHQ-9 Depression Total Score: 0 12/06/19 18 3:00 PM EDT documented as of this encounter Care Teams It Project Lead Relationship Specialty Start Date End Date System, Provider Not In PCP - General 06/24/21 12/21/21 Maile Valles RN Txp Post Coordinator Transplant Hepatology 11/07/17 Jack Ordoñez MD [address] [place] [phone] Consulting Physician Transplant Hepatology 01/05/18 Estephania Sharif, PharmD Pharmacist Pharmacist 11/11/19 documented as of this encounter
--- OUTSIDE RECORDS SUMMARY | 2024-07-12 12:36 | XMS_ITS | Encounter Summary ---
Author Organization [facility] Address [address] [place] [address] Care Team Providers Care Lamp Assembler Name Role Phone Edgar Fournier MD Primary Care Provider [phone] Maile Valles RN Unavailable Unavail able Jack Ordoñez MD Unavailable [phone] Estephania Sharif PharmD Unavailable Christine vailable [...] release of HIV test results or diagnoses. [id number] Reason for Referral * Imaging/Cardiovascular Scan (Routine) - Closed Specialty Diagnoses / Procedures Referred By Contac t Referred To Contact Radiology Diagnoses Vertebral osteomyelitis ([facility]) Procedures MRI Lumbar spine WO contrast Dav Johnson MD [address] [facility] [address] [place] [address] Phone: tel: fax: Referral ID Status Reason Start Date Expiration Date Visits Re quested Visits Authorized [id number] Closed 09/03/2020 03/02/2021 1 1 Reason for Visit * Auth/Cert Specialty Diagnoses / Procedures Referred By Declan hines Referred To Contact Radiology [facility] MRI [address] [place] [address] Phone: tel: Referral ID Status Reason Start Date Expiration Date Visits Re quested Visits Authorized [id number] 1 1 Encounter Details Date Type Department Care Team (Latest Contact Info) Description 09/15/2020 1:53 PM EST - 09/15/2020 11:59 PM EST Hospital Encounter [facility] MRI [address] [place] [address] Dav oJhnson MD [address] [place] [phone] Vertebral osteomyelitis ([facility]) Discharge Disposition: Home or Self Care [...] have Coronavirus / COVID-19? No / Unsure 09/15/2020 1:49 PM EST documented as of this encounter Medications at Time of Discharge aspirin 81 MG chewable tablet Chew 1 tablet (81 mg total) by mouth daily with breakfast. 30 tablet 5 8 carBAMazepine (TEGRETOL) 200 mg tablet Take 1 tablet (200 mg total) by mouth 2 times a day. doxazosin (CARDURA) 8 MG tablet Take 1 tablet (8 mg total) by mouth at bedtime. 8 NIFEdipine (PROCARDIA-XL) 90 MG (OSM) 24 hr tablet Take 1 tablet (90 mg total) by mouth if needed. 8 polyethylene glycol (MIRALAX) 17 gram packet Take 17 g by mouth daily as needed (mild constipation (no BM for 24 hrs)). 14 packet 0 blood sugar diagnostic Strp Use to test blood sugar up to 4 times a day. Diagnosis for use: E 9.65. For use with One Touch Verio meters. 150 strip 5 8 03/18/20 22 blood-glucose meter ([employer] VERIO SYSTEM) [facility] Use as instructed. 1 each 8 03/18/20 22 cloNIDine HCL (CATAPRES) 0.1 MG tablet Take 1 tablet (0.1 mg total) by mouth 2 times a day. 60 tablet 0 11/01/19 22 cycloSPORINE modified (NEORAL) 25 MG capsule Take 4 capsules (100 mg total) by mouth 2 times a day. 240 capsule 5 09/14/2020 9:43 AM EST 0 12/05/19 21 entecavir (BARACLUDE) 0.5 MG tablet Take 1 tablet (0.5 mg total) by mouth every 7 days. 4 tablet 5 0 01/06/20 21 ergocalciferol (ERGOCALCIFEROL) 1,250 mcg (50,000 unit) capsule Take 50,000 Units by mouth every Monday, , and Monday. 03/18/20 22 fluticasone propionate (FLONASE) 50 mcg/actuation nasal spray Use into each nostril. 0 11/01/19 22 gabapentin (NEURONTIN) 100 MG capsuleIndications: Other osteonecrosis, left femur ([facility]) Take 1 capsule (100 mg total) by mouth 2 times a day. 90 capsule 0 11/16/19 22 hydrALAZINE (APRESOLINE) 100 MG tablet Take 1 tablet (100 mg total) by mouth every 8 hours. 120 tablet 0 11/09/19 24 insulin NPH isoph U-100 human (HUMULIN N NPH INSULIN KWIKPEN) 100 unit/mL (3 mL) InPnIndications:S/P liver transplant (CMS-HCC),Hyperglyc emia Inject subcutaneously 12 units in the AM and 6 units in the PM. 15 mL 5 0 11/02/19 22 lancets (ONETOUCH DELICA LANCETS) 33 gauge Misc Use 1 strip as directed 4 times daily before meals and at bedtime. 150 each 5 8 03/18/20 22 levoFLOXacin (LEVAQUIN) 500 MG tablet Take 0.5 tablets (250 mg total) by mouth at bedtime. 25 tablet 0 10/08/19 21 lidocaine (LIDODERM) 5 % Place 1 patch onto the skin daily. Apply patch for 12 hours and then remove patch and leave off for 12 hours. 30 patch 0 01/08/20 21 lisinopriL (PRINIVIL) 40 MG tablet Take 1 tablet by mouth daily. 0 03/18/20 22 melatonin 3 mg Tab Take 2 tablets (6 mg total) by mouth at bedtime. 30 tablet 0 03/16/20 22 methocarbamoL (ROBAXIN) 500 MG tablet Take 1 tablet (500 mg total) by mouth 4 times daily before meals and at bedtime. 120 tablet 0 01/08/20 21 metoprolol tartrate (LOPRESSOR) 25 MG tablet Take 1 tablet (25 mg total) by mouth 2 times a day. 60 tablet 0 03/16/20 22 ondansetron (ZOFRAN-ODT) 4 MG disintegrating tablet Take 1 tablet (4 mg total) by mouth every 8 hours as needed. 8 04/28/20 24 pantoprazole (PROTONIX) 40 MG tablet Take 1 tablet (40 mg total) by mouth daily. 30 tablet 0 03/18/20 22 pen needle, diabetic 32 gauge x Ndle Use as directed to inject insulin 4 times daily. 150 each 8 03/18/20 22 QUEtiapine (SEROQUEL) 25 MG tablet Take 0.5 tablets (12.5 mg total) by mouth at bedtime. 15 tablet 0 11/01/19 22 documented as of this encounter Plan of Treatment Upcoming Encounters Date Type Department Care Team (Late st Contact Info) Description 07/15/2024 9:00 AM EST Hospital Encounter [facility] Interventional Radiology [address] [place] [phone] Herve Carrillo MD [address] [place] [phone] documented as of this encounter Procedures Procedure Name Priority Date/Time Associated Diagnosis Comments MRI LUMBAR SPINE WITHOUT CONTRAST Routine 09/15/2020 2:47 PM EST Vertebral osteomyelitis ([facility]) documented in this encounter Results * MRI Lumbar spine WO contrast (09/15/2020 2:47 PM EST) Anatomical Region Laterality Modality L-spine Magnetic Resonan ce 09/15/2020 2:08 PM EST Impressions 09/15/2020 3:27 PM EST IMPRESSION: No acute interval changes suspected. Evolution of L5-S1 osteomyelitis with discitis. Reduced fluid collection at the laminectomy site. Report Verified by: Man Ortega MD at 09/15/2020 3:27 PM EST Narrative 09/15/2020 3:27 PM EST EXAM: MRI LUMBAR SPINE WO CONTRAST INDICATION: osteomyelitis, TECHNIQUE: MRI LUMBAR SPINE WITHOUT CONTRAST obtained including multiplanar T1 and T2 weighted imaging. COMPARISON: 05/30/2020, 04/28/2020 FINDINGS: Scan quality is diminished compared to prior. Lumbar vertebral body, disc space height, alignment, and signal is maintained L1-L4. The conus region is unremarkable. L5 laminectomy changes are again present, with prior dorsal fluid collection decreased in volume. L4-5 disc spaces and signal is similar to prior, mild disc space narrowing. L5 vertebral body again exhibits inferior endplate and body edema. Inferior endplate L5-S1 edema persists, with some normalization of S1 superior endplate. L5-S1 disc space is further narrowed compared to 04/28/2020 Persistent widening of epidural space widening of epidural space with compression of the thecal sac is reduced in the interim. Post anterior and mid L5 vertebral body heights are generally similar. Gadolinium contrast is not infused at this time. Procedure Note Man Ortega MD - 09/15/2020 EXAM: MRI LUMBAR SPINE WO CONTRAST INDICATION: osteomyelitis, TECHNIQUE: MRI LUMBAR SPINE WITHOUT CONTRAST obtained includingmultiplanar T1 and T2 weighted imaging. COMPARISON: 05/30/2020, 04/28/2020 FINDINGS: Scan quality is diminished compared to prior. Lumbar vertebral body, discspace height, alignment, and signal is maintained L1-L4. The conus regionis unremarkable. L5 laminectomy changes are again present, with priordorsal fluid collection decreased in volume. L4-5 disc spaces and signal is similar to prior, mild disc spacenarrowing. L5 vertebral body again exhibits inferior endplate and bodyedema. Inferior endplate L5-S1 edema persists, with some normalization ofS1 superior endplate. L5-S1 disc space is further narrowed compared to04/28/2020 Persistent widening of epidural space widening of epidural space withcompression of the thecal sac is reduced in the interim. Post anterior andmid L5 vertebral body heights are generally similar. Gadolinium contrast is not infused at this time. IMPRESSION: No acute interval changes suspected. Evolution of L5-S1 osteomyelitis withdiscitis. Reduced fluid collection at the laminectomy site. Report Verified by: Man Ortega MD at 09/15/2020 3:27 PM EST Dav Johnson MD IMG MRI ORDERABLES Final Result documented in this encounter Visit Diagnoses Diagnosis Vertebral osteomyelitis (CMS-HCC) Unspecified osteomyelitis, other specified site documented in this encounter Additional Health Concerns Assessment Noted Time PHQ-9 Depression Total Score: 0 12/06/19 18 3:00 PM EDT documented as of this encounter Care Teams Lamp Assembler Relationship Specialty Start Date End Date Edgar [place]nier [place] [address] PCP - General 08/18/17 06/23/21 Maile Valles, JANA Txp Post Coordinator Transplant Hepatology 11/07/17 Jack Ordoñez MD [facility] [place] [address] Consulting Physician Transplant Hepatology 01/05/18 Estephania Sharif, DarrianD Pharmacist Pharmacist 11/11/19 documented as of this encounter
--- OUTSIDE RECORDS SUMMARY | 2024-07-12 12:36 | XMS_ITS | Encounter Summary ---
Author Organization [facility] Address [address] [place] [address] Care Team Providers Care Pot Pusher Name Role Phone Edgar Fournier MD Primary Care Provider [phone] Maile Valles RN Unavailable Unavail able Jack Ordoñez MD Unavailable [phone] Estephania Sharif PharmD Unavailable Christine vailable [...] release of HIV test results or diagnoses. [id number] Encounter Details Date Type Department Care Team (Latest Contact Info) Description 09/15/2020 Travel Social History Tobacco Use Types Packs/Day [...] [facility] Interventional Radiology [address] [place] [phone] Herve Carrillo MD [address] [facility] [address] [place] [phone] documented as of this encounter Visit Diagnoses Not on filedocumented in this encounter Additional Health Concerns Assessment Noted Time PHQ-9 Depression Total Score: 0 12/06/19 18 3:00 PM EDT documented as of this encounter Care Teams Pot Pusher Relationship Specialty Start Date End Date Edgar Fournier MD [address] [place] [address] [place] [address] PCP - General 08/18/17 06/23/21 Miale Valles, RN Txp Post Coordinator Transplant Hepatology 11/07/17 Jack Ordoñez MD [address] [place] [phone] Consulting Physician Transplant Hepatology 01/05/18 Estephania Sharif, DarrianD Pharmacist Pharmacist 11/11/19 documented as of this encounter
--- OUTSIDE RECORDS SUMMARY | 2024-07-12 12:36 | XMS_ITS | Encounter Summary ---
Author Organization [facility] Address [address] [place] [address] Care Team Providers Care Carbonation Equipment Operator Name Role Phone Edgar Fournier MD Primary Care Provider [phone] Maile Valles RN Unavailable Unavail able Jack Ordoñez MD Unavailable [phone] Estephania Sharif PharmD Unavailable Christine vailable [...] release of HIV test results or diagnoses. [id number] Reason for Visit * Reason Comments Labs Only Encounter Details Date Type Department Care Team (Late st Contact Info) Description 09/03/2020 11:50 AM EST Specimen [facility] [address] [facility] [address] [place] [phone] Dav Johnson MD [address] [facility] [address] [place] [phone] Vertebral osteomyelitis (CMS-HCC) Social History Tobacco Use Types Packs/Day [...] have Coronavirus / COVID-19? No / Unsure 09/03/2020 10:51 AM EST documented as of this encounter Plan of Treatment Upcoming Encounters Date Type Department Care Team (Late st Contact Info) Description 07/15/2024 9:00 AM EST Hospital Encounter [facility] Interventional Radiology [address] [place] [phone] Herve Carrillo MD [address] [facility] [address] [place] [phone] documented as of this encounter Procedures Procedure Name Priority Date/Time Associated Diagnosis Comments SED RATE Routine 09/03/2020 11:49 AM EST Vertebral osteomyelitis ([facility]-HCC) DIFFERENTIAL Routine 09/03/2020 11:49 AM EST Vertebral osteomyelitis (CMS-HCC) CBC Routine 09/03/2020 11:49 AM EST Vertebral osteomyelitis (CMS-HCC) C-REACTIVE PROTEIN Routine 09/03/2020 11 :49 AM EST Vertebral osteomyelitis (CMS-HCC) documented in this encounter Results * (ABNORMAL) Differential (09/03/2020 11:49 AM EST) Myelocytes Relative 1.0(H) 0.0 - 0.0 % 09/03/2020 2:29 PM EST [facility] Metamyelocytes Relative 1.0(H) 0.0 - 0.0 % 09/03/2020 2:29 PM EST [facility] Neutrophils Relative 60.4 40.0 - 80.0 % 09/03/2020 2:29 PM [facility] Lymphocytes Relative 33.6 15.0 - 45.0 % 09/03/2020 2:29 PM [facility] Monocytes Relative 1.0 0.0 - 12.0 % 09/03/2020 2:29 PM EST [facility] Eosinophils Relative 3.0 0.0 - 8.0 % 09/03/2020 2:29 PM [facility] Basophils Relative 0.0 0.0 - 1.0 % 09/03/2020 2:29 PM [facility] nRBC 1(H) 0 - 0 /100 WBC 09/03/2020 2:29 PM [facility] Neutrophils Absolute 2,295 1,500 - 7,800 /uL 09/03/2020 2:29 PM [facility] Metamyelocytes Absolute 38(H) 0 - 0 /uL 09/03/2020 2:29 PM [facility] Myelocytes Absolute 38(H) 0 - 0 /uL 09/03/2020 2:29 PM [facility] Lymphocytes Absolute 1,277 850 - 3,900 /uL 09/03/2020 2:29 PM [facility] Monocytes Absolute 38(L) 200 - 950 /uL 09/03/2020 2:29 PM [facility] Eosinophils Absolute 114 15 - 500 /uL 09/03/2020 2:29 PM [facility] Basophils Absolute 0 0 - 200 /uL 09/03/2020 2:29 PM [facility] Polychromasia Present 09/03/2020 2:29 PM [facility] PLT Morphology Platelet morphology appears normal 09/03/2020 2:29 PM [facility] Whole blood specimen (specimen) 09/03/2020 11:49 AM EST 09/03/2020 1:04 PM EST us Dav Johnson MD LAB BLOOD ORDERABLES Final Resu lt [facility] [address] [place] [address], [facility] * (ABNORMAL) CBC (09/03/2020 11:49 AM EST) WBC 3.8 3.8 - 10.8 10E3/uL 09/03/2020 1:16 PM EST [facility] RBC 2.75(L) 4.20 - 5.80 10E6/uL 09/03/2020 1:16 PM EST [facility] Hemoglobin 8.3(L) 13.2 - 17.1 g/dL 09/03/2020 1:16 PM EST [facility] Hematocrit 25.3(L) 38.5 - 50.0 % 09/03/2020 1:16 PM EST [facility] MCV 92.0 80.0 - 100.0 fL 09/03/2020 1:16 PM EST [facility] MCH 30.2 27.0 - 33.0 pg 09/03/2020 1:16 PM EST [facility] MCHC 32.9 32.0 - 36.0 g/dL 09/03/2020 1:16 PM EST [facility] RDW 17.8(H) 11.0 - 15.0 % 09/03/2020 1:16 PM EST [facility] Platelets 176 140 - 400 10E3/uL 09/03/2020 1:16 PM EST [facility] MPV 6.9(L) 7.5 - 11.5 fL 09/03/2020 1:16 PM EST [facility] Whole blood specimen (specimen) 09/03/2020 11:49 AM EST 09/03/2020 1:04 PM EST us Dav Johnson MD LAB BLOOD ORDERABLES Final Resu lt [facility] [address] [place] [address], [facility] * (ABNORMAL) C-reactive protein (09/03/2020 11:49 AM EST) CRP 14.3(H) 1.0 - 10.0 mg/L 09/03/2020 1:21 PM EST [facility] Plasma specimen (specimen) 09/03/2020 11:49 AM EST 09/03/2020 1:06 PM EST us Dav Johnson MD LAB BLOOD ORDERABLES Final Resu lt Performing Organization Address City/[facility]/ZIP Co de Phone Number [facility] [address] * Sed Rate (09/03/2020 11:49 AM EST) Sed Rate 15 0 - 15 mm/hr 09/03/2020 2:37 PM EST [facility] Whole blood specimen (specimen) 09/03/2020 11:49 AM EST 09/03/2020 1:04 PM EST Dav Johnson MD LAB BLOOD ORDERABLES Final Resu lt Performing Organization Address City/[facility] Co de Phone Number [facility] [address] [place] [facility]. [address] documented in this encounter Visit Diagnoses Diagnosis Vertebral osteomyelitis (CMS-HCC) Unspecified osteomyelitis, other specified site documented in this encounter Additional Health Concerns Assessment Noted Time PHQ-9 Depression Total Score: 0 12/06/19 18 3:00 PM EDT documented as of this encounter Care Teams Carbonation Equipment Operator Relationship Specialty Start Date End Date Edgar Fournier MD [address] [place] [address] [place] [address] PCP - General 08/18/17 06/23/21 Maile Valles, JANA Txp Post Coordinator Transplant Hepatology 11/07/17 Jack Ordoñez MD [address] [place] [phone] Consulting Physician Transplant Hepatology 01/05/18 Estephania Sharif, DarrianD Pharmacist Pharmacist 11/11/19 documented as of this encounter
--- OUTSIDE RECORDS SUMMARY | 2024-07-12 12:36 | XMS_ITS | Encounter Summary ---
Author Organization [facility] Address [address] [place] [address] Care Team Providers Care Communications Lead Name Role Phone Edgar Fournier MD Primary Care Provider [phone] Maile Valles RN Unavailable Unavail able Jack Ordoñez MD Unavailable [phone] Estephania Sharif PharmD Unavailable Christine vailable [...] release of HIV test results or diagnoses. [id number] Health Encounter Details Date Type Department Care Team (Late st Contact Info) Description 10/21/2020 Chart Note [facility] Liver Transplant at [facility] [address] [facility] [address] [place] [address] Maile Valles, JANA [facility]OS [facility] Social History Tobacco Use Types Packs/Day [...] or suspected to have Coronavirus / COVID-19? Unable to assess 10/08/2020 6:26 AM EST documented as of this encounter Progress Notes * Maile Valles RN - 10/21/2020 9:59 AM EST [facility] documented in this encounter Plan of Treatment Upcoming Encounters Date Type Department Care Team (Late st Contact Info) Description 07/15/2024 9:00 AM EST Hospital Encounter [facility] Interventional Radiology [address] [place] [phone] Herve Carrillo MD [address] [facility] [address] Surgery [place] [phone] documented as of this encounter Visit Diagnoses Not on filedocumented in this encounter Additional Health Concerns Assessment Noted Time PHQ-9 Depression Total Score: 0 12/06/19 18 3:00 PM EDT documented as of this encounter Care Teams Communications Lead Relationship Specialty Start Date End Date Edgar Fournier MD [address] [place] [address] [place] [address] PCP - General 08/18/17 06/23/21 Maile Valles, JANA Txp Post Coordinator Transplant Hepatology 11/07/17 Jack Ordoñez MD [address] [place] [phone] Consulting Physician Transplant Hepatology 01/05/18 Estephania Sharif, PharmD Pharmacist Pharmacist 11/11/19 documented as of this encounter
--- OUTSIDE RECORDS SUMMARY | 2024-07-12 12:36 | XMS_ITS | Encounter Summary ---
Author Organization [facility] Address [address] [place] [address] Care Team Providers Care Heavy Coil Winder Name Role Phone Edgar Fournier MD Primary Care Provider [phone] Maile Valles RN Unavailable Unavail able Jack Ordoñez MD Unavailable [phone] Estephania Sharif PharmD Unavailable Christine vailable [...] release of HIV test results or diagnoses. [id number] Health Encounter Details Date Type Department Care Team (Late st Contact Info) Description 01/12/2021 Chart Note [facility] Kidney Transplant [facility] [address] [place] [address] Ashish Flood [facility] [phone] new kidney referral Social History Tobacco Use Types Packs/Day Years [...] as of this encounter Progress Notes * Ashsih Flood - 01/12/2021 11:11 AM EDT Ashish graves [facility] [phone] new kidney referral On dial Medicare a/b is primary [place] mdcd QMB is secondary Referral is cleared documented in this encounter Plan of Treatment Upcoming Encounters Date Type Department Care Team (Late st Contact Info) Description 07/15/2024 9:00 AM EST Hospital Encounter [facility] Interventional Radiology [address] [place] [phone] Herve Carrillo MD [address] [facility] [address] Surgery [place] [phone] documented as of this encounter Visit Diagnoses Not on filedocumented in this encounter Additional Health Concerns Assessment Noted Time PHQ-9 Depression Total Score: 0 12/06/19 18 3:00 PM EDT documented as of this encounter Care Teams Heavy Coil Winder Relationship Specialty Start Date End Date Edgar Fournier MD [address] [place] [address] [place] [address] PCP - General 08/18/17 06/23/21 Maile Valles, JANA Txp Post Coordinator Transplant Hepatology 11/07/17 Jack Ordoñez MD [address] [place] [phone] Consulting Physician Transplant Hepatology 01/05/18 Estephania Sharif, DarrianD Pharmacist Pharmacist 11/11/19 documented as of this encounter
--- OUTSIDE RECORDS SUMMARY | 2024-07-12 12:36 | XMS_ITS | Encounter Summary ---
Author Organization [facility] Address [address] [place] [address] Care Team Providers Care Fur Tinter Name Role Phone Edgar Fournier MD Primary Care Provider [phone] Maile Valles RN Unavailable Unavail able Jack Ordoñez MD Unavailable [phone] Estephania Sharif PharmD Unavailable Christine vailable [...] release of HIV test results or diagnoses. [id number] Reason for Visit * Reason Comments Return Call Encounter Details Date Type Department Care Team (Late st Contact Info) Description 01/05/2021 Telephone [facility] Kidney Transplant at [address] [place] [phone] Joselin Stanley MA Return Call Social [...] Telephone Encounter - Joselin Stanley MA - 01/05/2021 9:57 AM EDT Received message from REBEKAH that patient called in saying he has been referred back to us. I have not received a referral. Called patient and he is going to have a referral sent over from his dialysis unit. Message sent to patient in [place] with my contact information. documented in this encounter Plan of Treatment Upcoming Encounters Date Type Department Care Team (Late st Contact Info) Description 07/15/2024 9:00 AM EST Hospital Encounter [facility] Interventional Radiology [address] [place] [phone] Herve Carrillo MD [address] [facility] [address] [place] [phone] documented as of this encounter Visit Diagnoses Not on filedocumented in this encounter Additional Health Concerns Assessment Noted Time PHQ-9 Depression Total Score: 0 12/06/19 18 3:00 PM EDT documented as of this encounter Care Teams Fur Tinter Relationship Specialty Start Date End Date Edgar Fournier MD [address] [place] [address] [place] [address] PCP - General 08/18/17 06/23/21 Maile Valles, JANA Txp Post Coordinator Transplant Hepatology 11/07/17 Jack Ordoñez MD [address] [place] [phone] Consulting Physician Transplant Hepatology 01/05/18 Estephania Sharif, DarrianD Pharmacist Pharmacist 11/11/19 documented as of this encounter
--- OUTSIDE RECORDS SUMMARY | 2024-07-12 12:36 | XMS_ITS | Encounter Summary ---
Author Organization [facility] Address [address] [place] [address] Care Team Providers Care Shirring Machine Operator Name Role Phone Edgar Fournier MD Primary Care Provider [phone] Maile Valles RN Unavailable Unavail able Jack Ordoñez MD Unavailable [phone] Estephania Sharif PharmD Unavailable Christine vailable [...] release of HIV test results or diagnoses. [id number] Encounter Details Date Type Department Care Team (Latest Contact Info) Description 10/22/2020 Travel Social History Tobacco Use Types Packs/Day [...] have Coronavirus / COVID-19? No / Unsure 10/22/2020 9:56 AM EST documented as of this encounter Plan of Treatment Upcoming Encounters Date Type Department Care Team (Late st Contact Info) Description 07/15/2024 9:00 AM EST Hospital Encounter [facility] Interventional Radiology [address] [place] [phone] Herve Carrillo MD [address] [facility] [address] [place] [phone] documented as of this encounter Visit Diagnoses Not on filedocumented in this encounter Additional Health Concerns Assessment Noted Time PHQ-9 Depression Total Score: 0 12/06/19 18 3:00 PM EDT documented as of this encounter Care Teams Shirring Machine Operator Relationship Specialty Start Date End Date Edgar Fournier MD [address] [place] [address] [place] [address] PCP - General 08/18/17 06/23/21 Maile Valles, RN Txp Post Coordinator Transplant Hepatology 11/07/17 Jack Ordoñez MD [address] [place] [phone] Consulting Physician Transplant Hepatology 01/05/18 Estephania Sharif, DarrianD Pharmacist Pharmacist 11/11/19 documented as of this encounter
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
--- OUTSIDE RECORDS SUMMARY | 2024-07-12 12:36 | XMS_ITS | Encounter Summary ---
Author Organization [facility] Address [address] [place] [address] Care Team Providers Care Transfer Clerk Name Role Phone Edgar Fournier MD Primary Care Provider [phone] Maile Valles RN Unavailable Unavail able Jack Ordoñez MD Unavailable [phone] Estephania Sharif PharmD Unavailable Christine vailable [...] release of HIV test results or diagnoses. [id number] Encounter Details Date Type Department Care Team (Latest Contact Info) Description 10/08/2020 Travel Social History Tobacco Use Types Packs/Day [...] 07/15/2024 9:00 AM EST Hospital Encounter [facility] Interventional Radiology [address] [place] [phone] Herve Carrillo MD [address] [facility] [address] [place] [phone] documented as of this encounter Visit Diagnoses Not on filedocumented in this encounter Additional Health Concerns Assessment Noted Time PHQ-9 Depression Total Score: 0 12/06/19 18 3:00 PM EDT documented as of this encounter Care Teams Transfer Clerk Relationship Specialty Start Date End Date Edgar Fournier MD [address] [place] [address] [place] [address] PCP - General 08/18/17 06/23/21 Maile Valles, JANA Txp Post Coordinator Transplant Hepatology 11/07/17 Jack Ordoñez MD [address] [place] [phone] Consulting Physician Transplant Hepatology 01/05/18 Estephania Sharif, DarrianD Pharmacist Pharmacist 11/11/19 documented as of this encounter
--- OUTSIDE RECORDS SUMMARY | 2024-07-12 12:36 | XMS_ITS | Encounter Summary ---
Author Organization [facility] Address [address] [place] [id number] Care Team Providers Care Experimental Machinist Name Role Phone Edgar Fournier MD Primary Care Provider [phone] Maile Valles RN Unavailable Unavail able Jack Ordoñez MD Unavailable [phone] Estephania Saravia PharmD Unavailable Christine vailable Source Comments This [...] release of HIV test results or diagnoses. [id number] Health Encounter Details Date Type Department Care Team (Late st Contact Info) Description 01/07/2021 Telephone [facility] [address] [place] [address] Estephania Saravia, PharmD Social History Tobacco [...] Telephone Encounter - Estephania Saravia, PharmD - 01/07/2021 3:45 PM EDT [facility]: Transplant Assessment Aiden Stauffer Jr. is a 45 y.o. old male patient who has a past medical history of Past Medical History: Diagnosis Date ??? Acute pancreatitis ??? Anemia ??? Ascites ??? Diabetes mellitus (CMS Dx) ??? Dialysis patient (CMS Dx) ??? Esophageal varices with bleeding (CMS Dx) ??? GERD (gastroesophageal reflux disease) ??? Hearing loss ??? Hepatic encephalopathy (CMS Dx) ??? Hypertension ??? 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 Pulmonary HTN (CMS Dx) ??? Sleep apnea ??? Vitamin D deficiency Transplant Type: Liver Transplant Date: 10/08/2017 Medication Reconciliation: ?? Patient reported immunosuppressive regimen as: ?? Cyclosporine modified 100mg twice daily ?? Mycophenolate 250mg twice daily ?? Patient reported prophylaxis regimen as: ?? Entecavir 0.5mg every 7 days ?? New Meds/Medication Changes: ?? Pt reports that he restarted mycophenolate and was told by Dr. Johnson to restart it. Cannot find documentation of this or of txp team telling him to resume. Patient's prescription and non-prescription medications and natural supplements were reviewed with the patient by Estephania Saravia and medication list updated. Current Outpatient Medications Medication Sig ??? ALPRAZolam Take 0.5 mg by mouth if needed for Sleep. ??? aspirin Chew 1 tablet (81 mg total) by mouth daily with breakfast. ??? carBAMazepine Take 200 mg by mouth 2 times a day. ??? cloNIDine HCL Take 1 tablet (0.1 mg total) by mouth 2 times a day. ??? cycloSPORINE modified Take 4 capsules (100 [...] total) by mouth every 8 hours. ??? HumuLIN N NPH Insulin KwikPen Inject subcutaneously 12 units in the AM and 6 units in the PM. (Patient taking differently: Inject subcutaneously 18 units in the AM and 15 units in the PM. ) ??? melatonin Take 2 tablets (6 mg [...] constipation (no BM for 24 hrs)). ??? QUEtiapine Take 0.5 tablets (12.5 mg total) by mouth at bedtime. ??? blood sugar diagnostic Use to test [...] for this visit. Allergies Allergen Reactions ??? Codeine Sulfate Hyper ??? Codeine Other (See Comments) Becomes hyper Adherence: ??? Issues (if any) patient has had with taking medication as prescribed: none ??? Assessment of patient's medication adherence: followed as prescribed ??? Patient???s perception of effectiveness of medication therapy: positve perception Adverse Effects: ??? Assessment of occurrence of medication adverse effects: none Assessment of Patient's Therapy and Barriers: ?? [...] moderate Follow-Up: Prescriptions will be filled by [facility]. Method of delivery: shipped via UPS by end of day 01/08/21. Patient should receive medication 01/14/21. Reassessment due in 1 year, approximately 08/14/21. Routed note to provider for review. ESTEPHANIA SARAVIA [facility] [phone] (phone) 01/07/2021, 3:45 PM documented in this encounter Plan of Treatment Upcoming Encounters Date Type Department Care Team (Late st Contact Info) Description 07/15/2024 9:00 AM EST Hospital Encounter [facility] Interventional Radiology [address] [place] [phone] Herve Carrillo MD [address] [facility] [address] Surgery [place] [phone] documented as of this encounter Visit Diagnoses Not on filedocumented in this encounter Additional Health Concerns Assessment Noted Time PHQ-9 Depression Total Score: 0 12/06/19 18 3:00 PM EDT documented as of this encounter Care Teams Experimental Machinist Relationship Specialty Start Date End Date Edgar Fournier MD [address] [place] [address] [place] [phone] PCP - General 08/18/17 06/23/21 Maile Valles, JANA Txp Post Coordinator Transplant Hepatology 11/07/17 Jack Ordoñez MD [address] [place] [address], [place] [phone] Consulting Physician Transplant Hepatology 01/05/18 Estephania Saravia, DarrianD Pharmacist Pharmacist 11/11/19 documented as of this encounter
--- OUTSIDE RECORDS SUMMARY | 2024-07-12 12:36 | XMS_ITS | Encounter Summary ---
Author Organization [facility] Address [address] [place] [address] Care Team Providers Care Hematology Nurse Educator Name Role Phone Edgar Fournier MD Primary Care Provider [phone] Maile Valles RN Unavailable Unavail able Jack Ordoñez MD Unavailable [phone] Estephania Sharif PharmD Unavailable Christine vailable [...] release of HIV test results or diagnoses. [id number] Health Encounter Details Date Type Department Care Team (Late st Contact Info) Description 11/04/2020 Telephone [facility] Liver Transplant at [address] [place] [address] Lynnette Muhammad MA Social History [...] Telephone Encounter - Lynnette Muhammad MA - 11/04/2020 2:28 PM EDT Pt called to ask about his renal US he had done and what the results mean. Also wants to know what his next steps would be in this process. Checked with RN coordinator Maile who stated to have him call Dr. Biswas's office since they are the ones who ordered it and might know what the next steps would be. Pt understood. documented in this encounter Plan of Treatment Upcoming Encounters Date Type Department Care Team (Late st Contact Info) Description 07/15/2024 9:00 AM EST Hospital Encounter [facility] Interventional Radiology [address] [place] [address] Herve Carrillo MD [address] [facility] [address] [place] [address] documented as of this encounter Visit Diagnoses Not on filedocumented in this encounter Additional Health Concerns Assessment Noted Time PHQ-9 Depression Total Score: 0 12/06/19 18 3:00 PM EDT documented as of this encounter Care Teams Hematology Nurse Educator Relationship Specialty Start Date End Date Edgar Fournier MD [address] [place] [address] [place] [phone] PCP - General 08/18/17 06/23/21 Maile Valles, JANA Txp Post Coordinator Transplant Hepatology 11/07/17 Jack Ordoñez MD [address] [place] [phone] Consulting Physician Transplant Hepatology 01/05/18 Estephania Sharif, PharmD Pharmacist Pharmacist 11/11/19 documented as of this encounter
--- OUTSIDE RECORDS SUMMARY | 2024-07-12 12:36 | XMS_ITS | Encounter Summary ---
Author Organization [facility] Address [address] [place] [address] Care Team Providers Care Assistant Program Manager Name Role Phone Edgar Fournier MD Primary Care Provider [phone] Maile Valles RN Unavailable Unavail able Jack Ordoñez MD Unavailable [phone] Estephania Sharif PharmD Unavailable Christine vailable [...] release of HIV test results or diagnoses. [id number] Reason for Visit * Reason Comments Results Encounter Details Date Type Department Care Team (Late st Contact Info) Description 11/20/2020 Telephone [facility] Liver Transplant at [address] [place] [phone] Maile Valles, JANA Results Social History [...] Telephone Encounter - Maile Valles RN - 11/24/2020 12:11 PM EDT CSA 56 Will continue to monitor as per previously determined lab intervals. * Telephone Encounter - Maile Valles RN - 11/20/2020 7:08 AM EDT Labs from 11/19/20 reviewed. Cr 10.8 - on HD. LFTs normal. CSA pending. documented in this encounter Plan of Treatment Upcoming Encounters Date Type Department Care Team (Late st Contact Info) Description 07/15/2024 9:00 AM EST Hospital Encounter [facility] Interventional Radiology [address] [place] [phone] Herve Carrillo MD [address] [facility] [address] [place] [phone] documented as of this encounter Visit Diagnoses Not on filedocumented in this encounter Additional Health Concerns Assessment Noted Time PHQ-9 Depression Total Score: 0 12/06/19 18 3:00 PM EDT documented as of this encounter Care Teams Assistant Program Manager Relationship Specialty Start Date End Date Edgar Fournier MD [address] [place] [address] [place] [phone] PCP - General 08/18/17 06/23/21 Maile Valles, RN Txp Post Coordinator Transplant Hepatology 11/07/17 Jack Ordoñez MD [facility] [place] [address] Consulting Physician Transplant Hepatology 01/05/18 Estephania Sharif, PharmD Pharmacist Pharmacist 11/11/19 documented as of this encounter
--- OUTSIDE RECORDS SUMMARY | 2024-07-12 12:36 | XMS_ITS | Encounter Summary ---
Author Organization [facility] Address [address] [place] [address] Care Team Providers Care Dry Cell Assembly Supervisor Name Role Phone Edgar Fournier MD Primary Care Provider [phone] Maile Valles RN Unavailable Unavail able Jack Ordoñez MD Unavailable [phone] Estephania Sharif PharmD Unavailable Christine vailable [...] release of HIV test results or diagnoses. [id number] Health Encounter Details Date Type Department Care Team (Late st Contact Info) Description 12/07/2020 Telephone [facility] Liver Transplant at [address] [place] [address] Lynnette Muhammad MA Social History Tobacco [...] Telephone Encounter - Maile Valles RN - 12/09/2020 7:[address] Rossi: No issues with that Updated patient via MyChart. * Telephone Encounter - Maile Valles RN - 12/08/2020 4:43 PM EDT Patient curious if he would be a candidate for peritoneal dialysis. Patient is having issues with his fistula and there are no possible access sites in his other arm. Unsure if liver transplant or other co-morbidities prohibits. Will review with Txp Surgeon. * Telephone Encounter - Lynnette Muhammad MA - 12/07/2020 2:12 PM EDT Pt called wanting to talk to his coordinator Maile about his dialysis. Call has been transferred. documented in this encounter Plan of Treatment Upcoming Encounters Date Type Department Care Team (Late st Contact Info) Description 07/15/2024 9:00 AM EST Hospital Encounter [facility] Interventional Radiology [address] [place] [address] Herve Carrillo MD [facility] [facility] [address] [place] [address] documented as of this encounter Visit Diagnoses Not on filedocumented in this encounter Additional Health Concerns Assessment Noted Time PHQ-9 Depression Total Score: 0 12/06/19 18 3:00 PM EDT documented as of this encounter Care Teams Dry Cell Assembly Supervisor Relationship Specialty Start Date End Date Edgar Fournier MD [address] [place] [address] [place] [address] PCP - General 08/18/17 06/23/21 Maile Valles, RN Txp Post Coordinator Transplant Hepatology 11/07/17 Jack Ordoñez MD [address] [place] [phone] Consulting Physician Transplant Hepatology 01/05/18 Estephania Sharif, PharmD Pharmacist Pharmacist 11/11/19 documented as of this encounter
--- OUTSIDE RECORDS SUMMARY | 2024-07-12 12:36 | XMS_ITS | Encounter Summary ---
Author Organization [facility] Address [facility] [place] [address] Care Team Providers Care Aviation Project Manager Name Role Phone Edgar Fournier MD Primary Care Provider [phone] Maile Valles RN Unavailable Unavail able Jack Ordoñez MD Unavailable [phone] Estephania Sharif PharmD Unavailable Christine vailable [...] release of HIV test results or diagnoses. [id number] Health Encounter Details Date Type Department Care Team (Late st Contact Info) Description 10/15/2020 Telephone [facility] Weight Loss Center at [facility] [address] [place] [address] Judi Yeboah Social History Tobacco [...] * Telephone Encounter - Judi Yeboah - 03/08/2021 2:00 PM EDT We have attempted to reach out to this patient multiple times through either voice mail and/or email without any response. We just sent a letter as our final attempt to contact. * Telephone Encounter - Judi Yeboah - 03/01/2021 3:23 PM EDT Checking status * Telephone Encounter - Judi Yeboah - 02/24/2021 9:31 AM EDT No vm * Telephone Encounter - Judi Yeboah - 02/19/2021 11:44 AM EDT No showed seminar * Telephone Encounter - Judi Yeboah - 02/15/2021 2:10 PM EDT Checking status * Telephone Encounter - Judi Yeboah - 02/01/2021 12:00 PM EDT No voicemail * Telephone Encounter - Judi Yeboah - 01/25/2021 9:54 AM EDT Offered teams * Telephone Encounter - Judi Yeboah - 10/15/2020 3:19 PM EST Wanted medication, explained our medical weight loss program is meal replacement based. He is interested in being notified as soon as we start taking new patients documented in this encounter Plan of Treatment Upcoming Encounters Date Type Department Care Team (Late st Contact Info) Description 07/15/2024 9:00 AM EST Hospital Encounter [facility] Interventional Radiology [address] [place] [phone] Herve Carrillo MD [address] [facility] [address] [place] [phone] documented as of this encounter Visit Diagnoses Not on filedocumented in this encounter Additional Health Concerns Assessment Noted Time PHQ-9 Depression Total Score: 0 12/06/19 18 3:00 PM EDT documented as of this encounter Care Teams Aviation Project Manager Relationship Specialty Start Date End Date Edgar Fournier MD [address] [place] [address] [place] [address] PCP - General 08/18/17 06/23/21 Maile Valles, RN Txp Post Coordinator Transplant Hepatology 11/07/17 Jack Ordoñez MD [address] [place] [phone] Consulting Physician Transplant Hepatology 01/05/18 Estephania Sharif, DarrianD Pharmacist Pharmacist 11/11/19 documented as of this encounter
--- OUTSIDE RECORDS SUMMARY | 2024-07-12 12:36 | XMS_ITS | Encounter Summary ---
Author Organization [facility] Address [address] [place] [address] Care Team Providers Care Video Coordinator Name Role Phone dEgar Fournier MD Primary Care Provider [phone] Maile Valles RN Unavailable Unavail able Jack Ordoñez MD Unavailable [phone] Estephania Sharif PharmD Unavailable Christine vailable [...] release of HIV test results or diagnoses. [id number] Health Encounter Details Date Type Department Care Team (Late st Contact Info) Description 11/19/2020 Chart Note [facility] Liver Transplant at [facility] [address] [facility] [address] [place] [address] Anne Whitt MA Social History Tobacco Use Types Packs/Day [...] Hospital Encounter [facility] Interventional Radiology [address] [place] [address] Herve Carrillo MD 6360 [facility] [address] Surgery [place] [phone] documented as of this encounter Procedures Procedure Name Priority Date/Time Associated Diagnosis Comments HEPATIC FUNCTION PANEL Routine 11/19/2020 2:59 PM EDT CYCLOSPORINE LEVEL Routine 11/19/2020 2: 59 PM EDT CBC AND DIFFERENTIAL Routine 11/19/2020 2:59 PM EDT RENAL FUNCTION PANEL W/O EGFR Routine 11/19/2020 2:59 PM EDT documented in this encounter Results * Cyclosporine level (11/19/2020 2:59 PM EDT) Cyclosporine, Blood 56 Whole blood specimen (specimen) us Historical Provider LAB BLOOD ORDERABLES Yoselin l Result * (ABNORMAL) Renal Function Panel w/o EGFR (11/19/2020 2:59 PM EDT) EGFR 5 BUN/Creatinine Ratio 6.9 Glucose 130 mg/dL BUN 74(A) 4 - 21 mg/dL CO2 25(A) 13 - 22 mmol/L Creatinine 10.8(A) 0.6 - 1.3 mg/dL Potassium 5.7(A) 3.4 - 5.3 mmol/L Sodium 140 137 - 147 mmol/L Chloride 102 99 - 108 mmol/L Phosphorus 7.8(A) 2.5 - 4.9 mg/dL Calcium 8.2(A) 8.7 - 10.7 mg/dL Blood specimen (specimen) Historical Provider LAB BLOOD ORDERABLES Yoselin l Result * (ABNORMAL) CBC and differential (11/19/2020 2:59 PM EDT) Hemoglobin 10.5(A) 13.5 - 17.5 g/dL Hematocrit 32.6(A) 41 - 53 % RDW 13.5 11.5 - 14.5 % Lymphocytes Absolute 1.66 /??L Monocytes Absolute 0.34 /??L Eosinophils Absolute 0.29 /??L Basophils Absolute 0.01 /??L Neutrophils Relative 51.1 46 - 78 % Lymphocytes Relative 34.1 18 - 52 % Monocytes Relative 7 3 - 10 % Eosinophils Relative 6 0 - 6 % Basophils Relative 0.2 0 - 3 % Neutrophils Absolute 2.51 /??L MCH 32.4 26.0 - 34.0 pg MCHC 32.2 30 - 37 g/dL MCV 100.6 82.0 - 108.0 fL Platelets 195 K/??L RBC 3.24(A) 4.50 - 5.90 10^6/??L WBC 4.9 10^3/mL Blood specimen (specimen) Historical Provider LAB BLOOD ORDERABLES Yoselin l Result * Hepatic Function Panel (11/19/2020 2:59 PM EDT) Bilirubin, Direct 0.1 Alkaline Phosphatase 105 U/L ALT 10 U/L AST 7 U/L Total Bilirubin 0.4 0.1 - 1.4 mg/dL Total Protein 7.6 6.4 - 8.2 g/dL Plasma specimen (specimen) us Historical Provider LAB BLOOD ORDERABLES Yoselin l Result documented in this encounter Visit Diagnoses Not on filedocumented in this encounter Additional Health Concerns Assessment Noted Time PHQ-9 Depression Total Score: 0 12/06/19 18 3:00 PM EDT documented as of this encounter Care Teams Video Coordinator Relationship Specialty Start Date End Date Edgar Fournier MD [address] [place] [address] [place] [address] PCP - General 08/18/17 06/23/21 Maile Valles, RN Txp Post Coordinator Transplant Hepatology 11/07/17 Jack Ordoñez MD [address] [place] [phone] Consulting Physician Transplant Hepatology 01/05/18 Estephania Sharif, PharmD Pharmacist Pharmacist 11/11/19 documented as of this encounter
--- OUTSIDE RECORDS SUMMARY | 2024-07-12 12:36 | XMS_ITS | Encounter Summary ---
Author Organization [facility] Address [address] [place] [address] Care Team Providers Care Dental Hygiene Teacher Name Role Phone Edgar Fournier MD Primary Care Provider [phone] Maile Valles RN Unavailable Unavail able Jack Ordoñez MD Unavailable [phone] Estephania Sharif PharmD Unavailable Christine vailable [...] release of HIV test results or diagnoses. [id number] Health Encounter Details Date Type Department Care Team (Latest Contact Info) Description 10/22/2020 10:00 AM EST - 10/22/2020 11:59 PM EST Hospital Encounter [facility] Ultrasound [address] [place] [phone] Ravi Biswas MD [address] [facility] [address] [place] [phone] Pulmonary hypertension ([facility]); SOB (shortness of breath) Discharge Disposition: Home or Self Care WITHOUT [...] AM EST documented as of this encounter Medications [...] hrs)). 14 packet 0 blood sugar diagnostic [facility] Use to test blood sugar up to 4 times a day. Diagnosis for use: E 9.65. For use with One Touch Verio meters. 150 strip 5 8 03/18/20 22 blood-glucose meter (ONETOUCH VERIO SYSTEM) [facility] Use as instructed. 1 each 8 03/18/20 [...] 100 MG capsuleIndications: Other osteonecrosis, left femur ([facility]) Take 1 capsule (100 mg total) by mouth 2 times a day. 90 capsule 0 11/16/19 22 hydrALAZINE (APRESOLINE) 100 MG tablet Take 1 tablet (100 mg total) by mouth every 8 hours. 120 tablet 0 11/09/19 24 insulin NPH isoph U-100 human (HUMULIN N NPH INSULIN KWIKPEN) 100 unit/mL (3 mL) InPnIndications:S/P liver transplant ([facility]),Hyperglyc emia Inject subcutaneously 12 units in the [...] 22 pen needle, diabetic 32 gauge x /32 Ndle Use as directed to inject insulin 4 times daily. 150 each 5 8 03/18/20 22 QUEtiapine (SEROQUEL) 25 MG tablet Take 0.5 tablets (12.5 mg total) by mouth at bedtime. 15 tablet 0 11/01/19 22 documented as of this encounter Plan of Treatment Upcoming Encounters Date Type Department Care Team (Late st Contact Info) Description 07/15/2024 9:00 AM EST Hospital Encounter [facility] Interventional Radiology [address] [place] [address] Herve Carrillo MD 47[address] [facility] [address] [place] [phone] documented as of this encounter Procedures Procedure Name Priority Date/Time Associated Diagnosis Comments US RETROPERITONEAL COMPLETE Routine 10/22/2020 10:54 AM EST Pulmonary hypertension (CMS-HCC) SOB (shortness of breath) documented in this encounter Results * US Retroperitoneal complete (10/22/2020 10:54 AM [...] Villagran MD at 10/22/2020 12:00 PM EST Ravi Biswas MD [facility] US ORDERABLES Final Result documented in this encounter Visit Diagnoses Diagnosis Pulmonary hypertension (CMS-HCC) Other chronic pulmonary heart diseases SOB (shortness of breath) Shortness of breath documented in this encounter Additional Health Concerns Assessment Noted Time PHQ-9 Depression Total Score: 0 12/06/19 18 3:00 PM EDT documented as of this encounter Care Teams Dental Hygiene Teacher Relationship Specialty Start Date End Date Edgar Fournier [place] [address] PCP - General 08/18/17 06/23/21 Maile Valles, RN Txp Post Coordinator Transplant Hepatology 11/07/17 Jack Ordoñez MD [facility]8 [place] [phone] Consulting Physician Transplant Hepatology 01/05/18 Estephania Sharif, PharmD Pharmacist Pharmacist 11/11/19 documented as of this encounter
--- OUTSIDE RECORDS SUMMARY | 2024-07-12 12:36 | XMS_ITS | Encounter Summary ---
Author Organization [facility] Address [address] [place] [address] Care Team Providers Care Practice Administrator Name Role Phone Edgar Fournier MD Primary Care Provider [phone] Maile Valles RN Unavailable Unavail able Jack Ordoñez MD Unavailable [phone] Estephania Sharif PharmD Unavailable Christine vailable [...] release of HIV test results or diagnoses. [id number] Health Encounter Details Date Type Department Care Team (Late st Contact Info) Description 01/12/2021 Chart Note [facility] Kidney Transplant at [facility] [address] [facility] [address] [place] [address] Joselin Stanley MA Entered new referral. Patient was previously closed due to his BMI. With Social History Tobacco Use Types Packs/Day Years [...] Concentration - - Weight 121.6 kg (268 lb 1.3 oz) 01/12/2021 7:00 AM EDT Height 170.2 cm (5' 7 ) 01/12/2021 7:00 AM EDT Body Mass Index 41.99 01/12/2021 7:00 AM EDT documented in this encounter Progress Notes * Joselin Stanley MA - 01/12/2021 8:26 AM EDT Entered new referral. Patient was previously closed due to his BMI. With our criteria change from 40 to 45 BMI, patient is now able to be referred back. Called [facility] and spoke with Ivett advising we received the referral and will be calling the patient to schedule Education Video/Clinic Appt. Waiting on financial clearance before scheduling. documented in this encounter Plan of Treatment Upcoming Encounters Date Type Department Care Team (Late st Contact Info) Description 07/15/2024 9:00 AM [facility] Hospital Encounter [facility] Interventional Radiology [address] [place] [address] Herve Carrillo MD 4670 [facility] [address] [place] [phone] documented as of this encounter Visit Diagnoses Not on filedocumented in this encounter Additional Health Concerns Assessment Noted Time PHQ-9 Depression Total Score: 0 12/06/19 18 3:00 PM EDT documented as of this encounter Care Teams Practice Administrator Relationship Specialty Start Date End Date Edgar Fournier MD [address] [place] [address] [place] [address] PCP - General 08/18/17 06/23/21 Maile Valles, RN Txp Post Coordinator Transplant Hepatology 11/07/17 Jack Ordoñez MD [facility]8 [place] [phone] Consulting Physician Transplant Hepatology 01/05/18 Estephania Sharif, PharmD Pharmacist Pharmacist 11/11/19 documented as of this encounter
--- OUTSIDE RECORDS SUMMARY | 2024-07-12 12:36 | XMS_ITS | Encounter Summary ---
Author Organization [facility] Address [address] [place] [address] Care Team Providers Care Warp Hanger Name Role Phone Edgar Fournier MD Primary Care Provider [phone] Maile Valles RN Unavailable Unavail able Jack Ordoñez MD Unavailable [phone] Estephania Sharif PharmD Unavailable Christine vailable [...] release of HIV test results or diagnoses. [id number] Reason for Visit * Reason Comments Appointment Images for appointme nt Encounter Details Date Type Department Care Team (Late st Contact Info) Description 10/12/2020 Telephone [facility] Pulmonology at [facility] [address] [facility] [address] [place] [address] Margoth Liz MA Appointment (Images for appointment) Social History Tobacco Use Types Packs/Day Years [...] encounter Miscellaneous Notes * Telephone Encounter - Margoth Liz - 10/12/2020 11:32 AM EST I have asked [facility] to send us a CD with the following images: CT Chest 04/28/20 X-ray Chest 04/28/20 I have requested the Hemodynamic waveforms from the Cath done 06/06/18 No other images or PFTs found documented in this encounter Plan of Treatment Upcoming Encounters Date Type Department Care Team (Late st Contact Info) Description 07/15/2024 9:00 AM EST Hospital Encounter [facility] Interventional Radiology [address] [place] [phone] Herve Carrillo MD [address] [facility] [address] [place] [phone] documented as of this encounter Visit Diagnoses Not on filedocumented in this encounter Additional Health Concerns Assessment Noted Time PHQ-9 Depression Total Score: 0 12/06/19 18 3:00 PM EDT documented as of this encounter Care Teams Warp Hanger Relationship Specialty Start Date End Date Edgar Fournier MD [address] [place] [address] [place] [address] PCP - General 08/18/17 06/23/21 Maile Valles, JANA Txp Post Coordinator Transplant Hepatology 11/07/17 Jack Ordoñez MD [facility] [place] [phone] Consulting Physician Transplant Hepatology 01/05/18 Estephania Sharif, DarrianD Pharmacist Pharmacist 11/11/19 documented as of this encounter
--- OUTSIDE RECORDS SUMMARY | 2024-07-12 12:36 | XMS_ITS | Encounter Summary ---
Author Organization [facility] Address [address] [place] [address] Care Team Providers Care Air Transport Professionals Name Role Phone Edgar Fournier MD Primary Care Provider [phone] Maile Valles RN Unavailable Unavail able Jack Ordoñez MD Unavailable [phone] Estephania Sharif PharmD Unavailable Christine vailable [...] release of HIV test results or diagnoses. [id number] Reason for Visit * Reason Comments Medication Refill Encounter Details Date Type Department Care Team (Late st Contact Info) Description 01/05/2021 Refill [facility] Liver Transplant at [facility] 3[address] [facility] [address] [place] [address] Jack Ordoñez MD [address] [place] [address] Social History Tobacco Use Types [...] Telephone Encounter - Maile Valles RN - 01/05/2021 3:15 PM EDT Received mycophenolate refill request. Per chart review, [facility] has been on hold since 05/28/20-06/08/20 hospital admission. Patient reportedto PharmD that he's been taking it for months - cleared by Dr. Johnson? Will review with Txp Provider. documented in this encounter Plan of Treatment Upcoming Encounters Date Type Department Care Team (Late st Contact Info) Description 07/15/2024 9:00 AM EST Hospital Encounter [facility] Interventional Radiology [address] [place] [phone] Herve Carrillo MD [address] [facility] [address] [place] [phone] documented as of this encounter Visit Diagnoses Not on filedocumented in this encounter Additional Health Concerns Assessment Noted Time PHQ-9 Depression Total Score: 0 12/06/19 18 3:00 PM EDT documented as of this encounter Care Teams Air Transport Professionals Relationship Specialty Start Date End Date Edgar Fournier MD [address] [place] [address] [place] [address] PCP - General 08/18/17 06/23/21 Maile Valles RN Txp Post Coordinator Transplant Hepatology 11/07/17 Jack Ordoñez MD [address] [place] [phone] Consulting Physician Transplant Hepatology 01/05/18 Estephania Sharif, DarrianD Pharmacist Pharmacist 11/11/19 documented as of this encounter
--- OUTSIDE RECORDS SUMMARY | 2024-07-12 12:36 | XMS_ITS | Encounter Summary ---
Author Organization [facility] Address [address] [place] [address] Care Team Providers Care Resource Recovery Engineer Name Role Phone Edgar Fournier MD Primary Care Provider [phone] Maile Valles RN Unavailable Unavail able Jack Ordoñez MD Unavailable [phone] Estephania Sharif PharmD Unavailable Christine vailable [...] release of HIV test results or diagnoses. [id number] Reason for Visit * Reason Comments Referral closed - bmi Encounter Details Date Type Department Care Team (Late st Contact Info) Description 11/04/2020 Telephone [facility] Kidney Transplant at [address] [place] [phone] Saleem Espinal MA Referral closed - bmi Social History Tobacco Use Types Packs/Day Years [...] Telephone Encounter - Saleem Espinal MA - 11/04/2020 3:30 PM EDT Patient called in on the main kidney transplant referral line to be scheduled for an appointment. Patient was internally referred by Dr. Ravi Biswas from Pulmonology. This patient was declined in 09/2019 due to his bmi status of 43. Patient bmi is now at a 42. Aiden understands that he cannot be referred back to us until his bmi is under 40. Aiden is currently working with bariatrics to discuss his weight loss options. He also understands that his goal weight is to lose about 15-20lbs. Once his bmi is under 40, then he may be referred to us at that time. Referral closed. documented in this encounter Plan of Treatment Upcoming Encounters Date Type Department Care Team (Late st Contact Info) Description 07/15/2024 9:00 AM EST Hospital Encounter [facility] Interventional Radiology [address] [place] [address] Herve Carrillo MD 0[address] [facility] [address] [place] [address] documented as of this encounter Visit Diagnoses Not on filedocumented in this encounter Additional Health Concerns Assessment Noted Time PHQ-9 Depression Total Score: 0 12/06/19 18 3:00 PM EDT documented as of this encounter Care Teams Resource Recovery Engineer Relationship Specialty Start Date End Date Edgar Fournier MD [address] [place] [phone] PCP - General 08/18/17 06/23/21 Maile Valles, RN Txp Post Coordinator Transplant Hepatology 11/07/17 Jack Ordoñez MD [address] [place] [address] Consulting Physician Transplant Hepatology 01/05/18 Estephania Sharif, PharmD Pharmacist Pharmacist 11/11/19 documented as of this encounter
--- OUTSIDE RECORDS SUMMARY | 2024-07-12 12:36 | XMS_ITS | Encounter Summary ---
Author Organization [facility] Address [address] [place] [address] Care Team Providers Care Hyperbaric Technologist Name Role Phone Edgar Fournier MD Primary Care Provider [phone] Maile Valles RN Unavailable Unavail able Jack Ordoñez MD Unavailable [phone] Estephania Sharif PharmD Unavailable Christine vailable [...] release of HIV test results or diagnoses. [id number] Health Encounter Details Date Type Department Care Team (Late st Contact Info) Description 01/22/2021 Chart Note [facility] Kidney Transplant at [place] [id number] [facility] [address] [place] [address] Joselin Stanley MA Chart prep. Social History Tobacco Use Types Packs/Day Years [...] as of this encounter Progress Notes * Joselin Stanley MA - 01/22/2021 11:16 AM EDT Chart prep. documented in this encounter Plan of Treatment Upcoming Encounters Date Type Department Care Team (Late st Contact Info) Description 07/15/2024 9:00 AM EST Hospital Encounter [facility] Interventional Radiology [address] [place] [phone] Herve Carrillo MD [address] [facility] [address] [place] [phone] documented as of this encounter Visit Diagnoses Not on filedocumented in this encounter Additional Health Concerns Assessment Noted Time PHQ-9 Depression Total Score: 0 12/06/19 18 3:00 PM EDT documented as of this encounter Care Teams Hyperbaric Technologist Relationship Specialty Start Date End Date Edgar Fournier MD [address] [place] [address] [place] [address] PCP - General 08/18/17 06/23/21 Maile Valles, JANA Txp Post Coordinator Transplant Hepatology 11/07/17 Jack Ordoñez MD [address] [place] [phone] Consulting Physician Transplant Hepatology 01/05/18 Estephania Sharif, PharmD Pharmacist Pharmacist 11/11/19 documented as of this encounter
--- OUTSIDE RECORDS SUMMARY | 2024-07-12 12:36 | XMS_ITS | Encounter Summary ---
Author Organization [facility] Address [address] [place] [address] Care Team Providers Care Dial Lathe Operator Name Role Phone Edgar Fournier MD Primary Care Provider [phone] Maile Valles RN Unavailable Unavail able Jack Ordoñez MD Unavailable [phone] Estephania Sharif PharmD Unavailable Christine vailable [...] release of HIV test results or diagnoses. [id number] Reason for Visit * Reason Comments Appointment Encounter Details Date Type Department Care Team (Late st Contact Info) Description 10/07/2020 Telephone [facility] at [facility] [address] [facility] [address] [place] [address] Adonis Franks MA Appointment Social History Tobacco Use Types [...] have Coronavirus / COVID-19? Unable to assess 09/17/2020 9:50 AM EST documented as of this encounter Miscellaneous Notes * Telephone Encounter - Adonis Franks MA - 10/07/2020 3:01 PM EST Contacted patient to remind them of their appt on 10/08/2020 at 10:40, confirmed documented in this encounter Plan of Treatment Upcoming Encounters Date Type Department Care Team (Late st Contact Info) Description 07/15/2024 9:00 AM EST Hospital Encounter [facility] Interventional Radiology [address] [place] [phone] Herve Carrillo MD 3130 [facility] [address] Surgery [place] [phone] documented as of this encounter Visit Diagnoses Not on filedocumented in this encounter Additional Health Concerns Assessment Noted Time PHQ-9 Depression Total Score: 0 12/06/19 18 3:00 PM EDT documented as of this encounter Care Teams Dial Lathe Operator Relationship Specialty Start Date End Date Edgar Fournier MD [address] [place] [address] [place] [address] PCP - General 08/18/17 06/23/21 Maile Valles, JANA Txp Post Coordinator Transplant Hepatology 11/07/17 Jack Ordoñez MD [address] [place] [phone] Consulting Physician Transplant Hepatology 01/05/18 Estephania Sharif, DarrianD Pharmacist Pharmacist 11/11/19 documented as of this encounter
--- OUTSIDE RECORDS SUMMARY | 2024-07-12 12:36 | XMS_ITS | Encounter Summary ---
Author Organization [facility] Address [address] [place] [address] Care Team Providers Care [place] Marshal Name Role Phone Edgar Fournier MD Primary Care Provider [phone] Maile Valles RN Unavailable Unavail able Jack Ordoñez MD Unavailable [phone] Estephania Sharif PharmD Unavailable Christine vailable [...] release of HIV test results or diagnoses. [id number] Encounter Details Date Type Department Care Team (Latest Contact Info) Description 09/03/2020 Travel Social History Tobacco Use Types Packs/Day [...] [facility] [address] [place] [phone] Herve Carrillo MD 3130 [facility] [address] [place] [phone] documented as of this encounter Visit Diagnoses Not on filedocumented in this encounter Additional Health Concerns Assessment Noted Time PHQ-9 Depression Total Score: 0 12/06/19 18 3:00 PM EDT documented as of this encounter Care Teams [place] Marshal Relationship Specialty Start Date End Date Edgar Fournier MD [address] [place] [address] [place] [address] PCP - General 08/18/17 06/23/21 Maile Valles, JANA Txp Post Coordinator Transplant Hepatology 11/07/17 Jack Ordoñez MD [address] [place] [phone] Consulting Physician Transplant Hepatology 01/05/18 Estephania Sharif, DarrianD Pharmacist Pharmacist 11/11/19 documented as of this encounter
--- OUTSIDE RECORDS SUMMARY | 2024-07-12 12:36 | XMS_ITS | Encounter Summary ---
Author Organization [facility] Address [address] [place] [address] Care Team Providers Care Records Management Coordinator Name Role Phone Edgar Fournier MD Primary Care Provider [phone] Maile Valles RN Unavailable Unavail able Jack Ordoñez MD Unavailable [phone] Estephania Sharif PharmD Unavailable Christine vailable [...] release of HIV test results or diagnoses. [id number] Reason for Referral * Transplants (Routine) - Closed Specialty Diagnoses / Procedures Referred By Contac t Referred To Contact [facility] Transplant Surgery Diagnoses Kidney disease [facility] [place] [facility] Pulmonology at [facility] [address] [facility] [address] [place] [address] Phone: tel: fax: Referral ID Status Reason Start Date Expiration Date Visits Re quested Visits Authorized [id number] Closed 11/04/2020 05/03/2021 1 1 Scheduling Instructions For appointments, please call [phone]. Reason for Visit * Reason Comments Results Encounter Details Date Type Department Care Team (Arsen st Contact Info) Description 11/04/2020 Telephone [facility] [place] [facility] Pulmonology at [facility] [address] [facility] [address] [place] [address] Ravi Biswas MD 200 [facility], 3rd [place] [address] Results Social History Tobacco Use Types Packs/Day [...] Telephone Encounter - Ravi Biswas MD - 11/08/2020 12:04 PM EDT No future appointments. Will await scheduling with renal transplant. * Telephone Encounter - Ravi Biswas MD - 11/08/2020 1:08 AM EDT No future appointments. Patient to follow-up with kidney transplant team. * Telephone Encounter - Eleanor Lopez RN - 11/04/2020 3:19 PM EDT Number provided for scheduling for evaluation for kidney transplant. Discussed US results. Patient verbalized understanding. * Telephone Encounter - Ailyn Adamson - 11/04/2020 2:57 PM EDT Pt calling to request clinic to go over ultrasound results Pt also has not heard back from renal transplant Caller requests return call at [phone]. Caller has given verbal consent to leave a detailed message on voicemail if unavailable. documented in this encounter Plan of Treatment Upcoming Encounters Date Type Department Care Team (Late st Contact Info) Description 07/15/2024 9:00 AM EST Hospital Encounter [facility] [place] [facility] Interventional Radiology [address] [place] [phone] Herve Carrillo MD [address]130 [facility] [address] [place] [phone] Scheduled Referrals Name Type Priority Associated Diagnoses Orde r Schedule Kidney Transplant Outpatient Referral Routine Kidney disease Ordered: 11/04/2020 documented as of this encounter Visit Diagnoses Diagnosis Kidney disease- Primary Unspecified disorder of kidney and ureter documented in this encounter Additional Health Concerns Assessment Noted Time PHQ-9 Depression Total Score: 0 12/06/19 18 3:00 PM EDT documented as of this encounter Care Teams Records Management Coordinator Relationship Specialty Start Date End Date Edgar Fournier MD [address] [place] [address] [place] [phone] PCP - General 08/18/17 06/23/21 Maile Valles, JANA Txp Post Coordinator Transplant Hepatology 11/07/17 Jack Ordoñez MD [address] [place] [phone] Consulting Physician Transplant Hepatology 01/05/18 Estephania Sharif, DarrianD Pharmacist Pharmacist 11/11/19 documented as of this encounter
--- OUTSIDE RECORDS SUMMARY | 2024-07-12 12:36 | XMS_ITS | Encounter Summary ---
Author Organization [facility] Address [address] [place] [address] Care Team Providers Care Research Lab Assistant Name Role Phone Edgar Fournier MD Primary Care Provider [phone] Maile Valles RN Unavailable Unavail able Jack Ordoñez MD Unavailable [phone] Estephania Sharif PharmD Unavailable Christine vailable [...] release of HIV test results or diagnoses. [id number] Reason for Visit * Reason Comments Advice Only Encounter Details Date Type Department Care Team (Late st Contact Info) Description 12/10/2020 Telephone [facility] Liver Transplant at [address] [place] [address] Anne Whitt MA Advice Only [...] Telephone Encounter - Maile Valles RN - 12/14/2020 1:28 PM EDT Letter sent through [employer]. * Telephone Encounter - Anne Whitt MA - 12/10/2020 11:32 AM EDT Pt called to say that he fell and broke his foot in 3 places. States surgeon, Dr. Wilmer Barker, (phone [phone] ext [phone]) wants clearance from txp team before doing his surgery next . documented in this encounter Plan of Treatment Upcoming Encounters Date Type Department Care Team (Late st Contact Info) Description 07/15/2024 9:00 AM EST Hospital Encounter [facility] Interventional Radiology [address] [place] [phone] Herve Carrillo MD 3130 [facility] [address] Surgery [place] [phone] documented as of this encounter Visit Diagnoses Not on filedocumented in this encounter Additional Health Concerns Assessment Noted Time PHQ-9 Depression Total Score: 0 12/06/19 18 3:00 PM EDT documented as of this encounter Care Teams Research Lab Assistant Relationship Specialty Start Date End Date Edgar Fournier MD [address] [place] [address] [place] [phone] PCP - General 08/18/17 06/23/21 Maile Valles, JANA Txp Post Coordinator Transplant Hepatology 11/07/17 Jack Ordoñez MD [facility] [place] [address] Consulting Physician Transplant Hepatology 01/05/18 Estephania Sharif, DarrianD Pharmacist Pharmacist 11/11/19 documented as of this encounter
--- OUTSIDE RECORDS SUMMARY | 2024-07-12 12:36 | XMS_ITS | Encounter Summary ---
Author Organization [facility] Address [address] [place] [address] Care Team Providers Care Metal Molder Name Role Phone Edgar Fournier MD Primary Care Provider [phone] Maile Valles RN Unavailable Unavail able Jack Ordoñez MD Unavailable [phone] Estephania Sharif PharmD Unavailable Christine vailable [...] release of HIV test results or diagnoses. [id number] Health Encounter Details Date Type Department Care Team (Late st Contact Info) Description 09/14/2020 8:35 AM EST Office Visit [facility] Liver Transplant at [facility] 3[address] [facility] [address] [place] [address] Jack Ordoñez MD [address] [place] [phone] Liver transplanted (CMS-HCC) (Primary Dx); Immunosuppression for liver transplant (CMS Dx) Social History Tobacco Use Types Packs/Day [...] AM EST documented as of this encounter Patient Instructions * Patient Instructions* Jack Ordoñez MD - 09/14/2020 8:35 AM EST AFO brace documented in this encounter Progress Notes * Erika Buenrostro PharmD - 09/14/2020 8:35 AM EST Transplant Pharmacist Assessment and Recommendations: Pharmacist assessment completed via telephone on 09/11/20 prior to clinic appointment to minimize patient contact due to COVID-19 precautions. Current Outpatient Medications Medication Sig ??? aspirin 81 MG chewable tablet Chew 1 tablet (81 mg total) by mouth daily with breakfast. ??? blood sugar diagnostic Strp Use to test blood sugar up to 4 times a day. Diagnosis for use: E 9.65. For use with One Touch Verio meters. ??? blood-glucose meter (ONETOUCH VERIO SYSTEM) [facility] Use as instructed. ??? carBAMazepine (TEGRETOL) 200 mg tablet Take 200 mg by mouth 2 times a day. ??? cloNIDine HCL (CATAPRES) 0.1 MG tablet Take 1 tablet (0.1 mg total) by mouth 2 times a day. ??? cycloSPORINE modified (NEORAL) 25 MG capsule Take 4 capsules (100 mg total) by mouth 2 times a day. ??? doxazosin (CARDURA) 8 MG tablet 8 [...] by mouth every 8 hours. ??? insulin NPH isoph U-100 human (HUMULIN N NPH INSULIN KWIKPEN) 100 unit/mL (3 mL) InPn Inject subcutaneously 12 units in the AM and 6 units in the PM. (Patient taking differently: Inject subcutaneously 18 units in the AM and 15 units in the PM. ) ??? lancets ([employer] LANCETS) 33 gauge Misc Use 1 strip as directed 4 times daily before meals and at bedtime. ??? melatonin 3 mg Tab Take 2 tablets (6 mg total) by mouth at bedtime. ??? methocarbamoL (ROBAXIN) 500 MG tablet Take 1 tablet (500 mg total) by mouth 4 times daily before meals and at bedtime. ??? metoprolol tartrate (LOPRESSOR) 25 [...] to inject insulin 4 times daily. ??? polyethylene glycol (MIRALAX) 17 gram packet Take 17 g by mouth daily as needed (mild constipation (no BM for 24 hrs)). ??? lidocaine (LIDODERM) 5 % Place 1 patch onto the skin daily. Apply patch for 12 hours and then remove patch and leave off for 12 hours. ??? QUEtiapine (SEROQUEL) 25 MG tablet Take 0.5 tablets (12.5 mg total) by mouth at bedtime. No current facility-administered medications for this visit. Immunosuppression: THYMO BRIDGE Perioperative immunosuppression regimen included: steroid taper, MMF, tacrolimus and Thymoglobulin (175mg x 1 dose on 10/09/17) Currently on cyclosporine 100 mg BID??and mycophenolate 250 mg BID -Previously on CsA due to significant tremors with Prograf (switched to CsA on 10/23). Reports tremors improved significantly with cyclosporine. Envarsus initiated 04/14/18 due to rising creatinine and low CsA levels- he is tolerating well now. -Switched back to CsA during 07/2019 admission ?? Administers medications at: 9AM, 3PM and 9PM. ??Immunosuppression at 9AM and 9PM. ?? Goal CsA level is 75-125 mg/dL. Blood pressure: He is on doxasozin, hydralazine 100mg TID, nifedipine 90 mg BID and clonidine 0.1 mg BID. reports 150/90s. Continue to monitor. 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 Vertebral Osteomyelitis: -RODNEY found in apr 2020 and then trasnsistioned to PO ABX -Worsening back pain in may leading to IV vanco x8 weeks, left kvng GARZON and did not complete course -Readmitted 07/14/20 with antibiotics set up for dalbavancin and cipro through 09/08/20. Completed. Dialysis: HD MWF via fistula Adherence: Patient reports missing 0 doses in the past 4 weeks The following barriers to adherence have been identified: Patient has not followed up with transplant clinic or ID clinic as previously instructed. Patient manages medications. Reports no misseddoses of medications. It is my assessment that the patient demonstrates satisfactory adherence and medication understanding Recommendations: 1. Cyclosporine: Follow up on pending level and adjust accordingly 2. MMF: has follow up in 4 weeks with ID. Held since 05/29/20. 3. BP: not well controlled was being managed by nephrology. Recommend follow up. * Jack Ordoñez MD - 09/14/2020 8:35 AM EST Subjective: Aiden Stauffer Jr. is a 45 y.o. 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 The patient was last seen in December 2019. This is a telephone visit. He received a [facility] high risk donor, who was HBV ALEXANDRA +, HCV Ab+, ALEXANDRA negative and therefore will be on lifelong entecavir. Post-operative course was complicated by altered mental status and severe tremors thought to be related to tacrolimus toxicity, as well as hypoxia. He received one dose of thymoglobulin .Co- morbidities include obesity, HTN, and IDDM. INTERVAL HX: Current IS: CSA 100 mg BID and Cellcept on hold due to recent infection / osteomyelitis. He is on renally dosed entecavir lifelong. Labs in Aug 2020 reflect normal LFT s. Last CSA level in Sep was 39. Hhe has had a AVF placed for HD and had several admissions for osteomyelitis. He completed IV antibiotic (dalbavancin) and PO abx - levaquin. Awaiting upcoming follow up prior to restarting cellcept. Additionally developed shingles earlier in this month. He was seen previously by Dr Trivedi for consideration of bariatric surgery. He cannot be considered for kidney transplant due to BMI > 40. Complains off some foot drop due to recent osteomyelitis. The following portions of the patient's history [...] tab, Care Everywhere and paper documents. Objective: Limited d/t phone visit Labs: The patient's recent laboratory results were reviewed. Assessment & Plan: 45 year old male who is s/p OLT in Sep 2017 for SAL cirrhosis. 1) S/P OLT in Sep 2017 due to SAL: He has had a complicated post-OLT course including renal failure requiring HD. Remains on lifelong entecavir renally dosed due to HBV ALEXANDRA positive donor. Liver tests are normal on current immunosuppression. Continue to hold Cellcept until cleared by ID. Plan: -Continue cyclosporine 100 mg twice daily. -??Continue to hold cellcept. -??Would check labs every 2 months including: CBC, renal, hepatic profile, and cyclosporine trough. -??Would recommend annual visit to Dermatology for skin cancer surveillance. -??Please use SPF 30 or higher sunscreen, hat, long-sleeves and sunglasses while in the sun. -??Please continue age appropriate cancer screening including: colonoscopy, prostate exam. -Will check HgA1C, Vit D, Lipid profile, and urine protein / Cr ratio on annual basis with your PCP. -Continue Entecavir daily for HBcAb+ liver. Entecavir 0.5 mg weekly. RTC in 6 mos Please see the body of my note for supportive documentation related to the [facility]. I have reviewed all prior notes from the patient's PCP and other consultants. I have reviewed prior lab working including: CBC, renal, hepatic, INR, viral studies and all other testing for chronic liver disease. In addition, I independently reviewed the patients recent radiologic imaging. This was a phone conversation in lieu of an in-person visit. The patient provided verbal consent for an over the phone visit. The patient verbally confirmed name and date of and provided verbalconsent to use the phone visit. I spent 20 to 24 minutes on this call conducting an interview, speaking with the patient, performing a limited exam by phone, and educating the patient on my assessment and plan. I also spent 20 to 24 minutes min performing other activities for the service provided including reviewing charts, interpreting any relevant imaging, reviewing biopsies and discussing the case with the multidisciplinary team involved in the care. Total time for the visit was 40 to 44 minutes min. Due to complex medical decision making, I am billing at a Level 5. documented in this encounter Plan of Treatment Upcoming Encounters Date Type Department Care Team (Late st Contact Info) Description 07/15/2024 9:00 AM EST Hospital Encounter [facility] Interventional Radiology [address] [place] [address] Herve Carrillo MD 3130 [facility] [address] Surgery [place] [address] documented as of this encounter Visit Diagnoses Diagnosis Liver transplanted ([facility]-HCC)- Primary Liver replaced by transplant Immunosuppression for liver transplant ([facility] Dx) documented in this encounter Additional Health Concerns Assessment Noted Time PHQ-9 Depression Total Score: 0 12/06/19 18 3:00 PM EDT documented as of this encounter Care Teams Metal Molder Relationship Specialty Start Date End Date Edgar Fournier MD [address] [place] [address] [place] [phone] PCP - General 08/18/17 06/23/21 Maile Valles, JANA Txp Post Coordinator Transplant Hepatology 11/07/17 Jack Ordoñez MD [address] [place] [phone] Consulting Physician Transplant Hepatology 01/05/18 Estephania Sharif, PharmD Pharmacist Pharmacist 11/11/19 documented as of this encounter
--- OUTSIDE RECORDS SUMMARY | 2024-07-12 12:36 | XMS_ITS | Encounter Summary ---
Author Organization [facility] Address [address] [place] [address] Care Team Providers Care Tool And Die Technician Name Role Phone Edgar Fournier MD Primary Care Provider [phone] Maile Valles RN Unavailable Unavail able Jack Ordoñez MD Unavailable [phone] Estephania Sharif PharmD Unavailable Christine vailable [...] release of HIV test results or diagnoses. [id number] Reason for Visit * Reason Comments Schedule Education Video/Clinic cAppt Encounter Details Date Type Department Care Team (Late st Contact Info) Description 01/15/[address] [facility] Kidney Transplant at [address] [address] Joselin Stanley MA Schedule Education Video/Clinic cAppt Social History Tobacco Use Types Packs/Day Years [...] Telephone Encounter - Joselin Stanley MA - 01/15/2021 9:30 AM EDT Called and spoke with patient. Patient scheduled for a clinic appointment on March 31, 2021 at 12:30. Patient verbalized understanding to watch the education video and sign the Release of Information and return back to our office. Patient made aware of no show policy. Mailing reminder letter, pcp, dental, SARAH and education video. Kidney Transplant Referral Questionnaire Basic Info Previously had a transplant (Type? When? What hospital were you treated?): Liver, [facility] Working with or listed at another transplant center (Which [facility] Center?): [facility] possibly Previously declined transplant ? Support/lost to follow- up/noncompliance) No Medical/Surgical History History of heart attack (When? What hospital were you treated?): No History of any procedures on your heart (Stents, valves, pacemaker) (When? What hospital were you treated?): No If yes to any of the above and over the age of 65 Cardiology HOLD History of diabetes (Type 1 or 2? When diagnosed?) type 2, 10 years ago History of cancer (Type? When? What hospital were you treated? Treatment?): No Oxygen Dependent (Prescribed? Continuous?): No Medical Testing: Where do you normally receive your medical care? [facility] Kidney biopsy (When? Where) [facility] Stress Test :( When? Where?) (Only obtain if in last 12 months) No Echocardiogram: (When? Where?) (Only obtain if in last 12 months) No Routine Health Maintenance - Remind patient to update as need PAP: Mammogram: Colonoscopy (Where? When?): Dental/Wear Dentures: own Additional Information: Living Donor(s): Yes Reminders: Long appointment, eat lunch prior, bring a snack, support person. Education [] Video It is your responsibility to watch the video prior to your appointment. [] Class documented in this encounter Plan of Treatment Upcoming Encounters Date Type Department Care Team (Late st Contact Info) Description 07/15/2024 9:00 AM EST Hospital Encounter [facility] Interventional Radiology [address] [place] [phone] Herve Carrillo MD [address] [facility] Ed [address] [place] [phone] documented as of this encounter Visit Diagnoses Not on filedocumented in this encounter Additional Health Concerns Assessment Noted Time PHQ-9 Depression Total Score: 0 12/06/19 18 3:00 PM EDT documented as of this encounter Care Teams Tool And Die Technician Relationship Specialty Start Date End Date Edgar Fournier MD [address] [place] [address] [place] [address] PCP - General 08/18/17 06/23/21 Maile Valles, RN Txp Post Coordinator Transplant Hepatology 11/07/17 Jack Ordoñez MD [facility] [place] [phone] Consulting Physician Transplant Hepatology 01/05/18 Estephania Sharif, DarrianD Pharmacist Pharmacist 11/11/19 documented as of this encounter
--- OUTSIDE RECORDS SUMMARY | 2024-07-12 12:36 | XMS_ITS | Encounter Summary ---
Author Organization [facility] Address [address] [place] [address] Care Team Providers Care Wildlife Biology Internship Name Role Phone Edgar Fournier MD Primary Care Provider [phone] Maile Valles RN Unavailable Unavail able Jack Ordoñez MD Unavailable [phone] Estephania Sharif PharmD Unavailable Christine vailable [...] release of HIV test results or diagnoses. [id number] Reason for Visit * Reason Comments Medication Refill Encounter Details Date Type Department Care Team (Late st Contact Info) Description 09/15/2020 Refill [facility] Liver Transplant at [facility] [address] [facility] [address] [place] [address] Jack Ordoñez MD [address] [place] [address] Social History Tobacco Use Types [...] Hospital Encounter [facility] Interventional Radiology [address] [place] [phone] Herve Carrillo MD [address] [facility] [address] [place] [phone] documented as of this encounter Visit Diagnoses Not on filedocumented in this encounter Additional Health Concerns Assessment Noted Time PHQ-9 Depression Total Score: 0 12/06/19 18 3:00 PM EDT documented as of this encounter Care Teams Wildlife Biology Internship Relationship Specialty Start Date End Date Edgar Fournier MD [address] [place] [address] [place] [address] PCP - General 08/18/17 06/23/21 Maile Valles, JANA Txp Post Coordinator Transplant Hepatology 11/07/17 Jack Ordoñez MD [address] [place] [phone] Consulting Physician Transplant Hepatology 01/05/18 Estephania Sharif, DarrianD Pharmacist Pharmacist 11/11/19 documented as of this encounter
--- OUTSIDE RECORDS SUMMARY | 2024-07-12 12:36 | XMS_ITS | Encounter Summary ---
Author Organization [facility] Address [address] [place] [address] Care Team Providers Care Life Consultant Name Role Phone Edgar Fournier MD Primary Care Provider [phone] Jazmín Olmedo RN Unavailable Unavail able Jack Ordoñez MD Unavailable [phone] Estephania Sharif PharmD Unavailable Christine vailable [...] release of HIV test results or diagnoses. [id number] Reason for Referral * Physician/ANUSHA (Routine) - Closed Specialty Diagnoses / Procedures Referred By Contac t Referred To Contact [facility] Gastroenterology Diagnoses Liver transplanted ([facility]) Nausea [facility] Liver Transplant at [address] [address] Phone: tel: fax: Referral ID Status Reason Start Date Expiration Date Visits Re quested Visits Authorized [id number] Closed 01/19/2021 07/18/2021 1 1 Scheduling Instructions For appointments, please call [phone]. Encounter Details Date Type Department Care Team (Late st Contact Info) Description 01/15/2021 Telephone [facility] Liver Transplant at [facility] 3[address] [facility] [address] [place] [address] Jazmín Olmedo RN Social History Tobacco Use Types Packs/Day [...] as of this encounter Progress Notes * Jazmín lOmedo RN - 01/19/2021 9:26 AM EDTAddended by: JAZMÍN OLMEDO on: 01/19/2021 09:26 AM Modules accepted: Orders documented in this encounter Miscellaneous Notes * Telephone Encounter - Anne Whitt MA - 01/19/2021 9:46 AM EDT Called pt to let him know that GI referral has been placed. Pt asked that number for scheduling be sent to him via [employer]. Message sent to pt per request. * Telephone Encounter - Jazmín Olmedo RN - 01/19/2021 9:23 AM EDT Reviewed by Dr. Ordoñez. OK to replace referral to GI. Referral placed. Txp MA to update patientwith phone number for scheduling. * Telephone Encounter - Anne Whitt MA - 01/18/2021 8:54 AM EDT Spoke to pt and he states that the nausea started prior to restarting CellCept. States he doesn't have a local GI provider. Said he went to local hospital a few weeks ago because he thought he might have pneumonia but provider said he didn't have pneumonia. States he is coughing up dark brown sputum that is bloody. Said that local providers have no idea about what to do and to see anyone that could help him would be at . * Telephone Encounter - Jazmín Olmedo RN - 01/15/2021 9:46 AM EDT Received VM message from patient. States increased nausea and taking Zofran often. Unclear when patient restarted Cellcept. Txp MA to learn if seems to be related with timing of restarting medication. If not, patient should discuss with PCP/local GI provider. documented in this encounter Plan of Treatment Upcoming Encounters Date Type Department Care Team (Late st Contact Info) Description 07/15/2024 9:00 AM [facility] Hospital Encounter [facility] Interventional Radiology [address] [place] [phone] Herve Carrillo MD [address] [facility] 3200 [place] [address] Scheduled Referrals Name Type Priority Associated Diagnoses Orde r Schedule GI Office Visit/Consult Outpatient Referral Routine Liver transplanted (CMS-HCC) Nausea Ordered: 01/19/2021 documented as of this encounter Visit Diagnoses Diagnosis Liver transplanted (CMS-HCC)- Primary Liver replaced by transplant Nausea Nausea alone documented in this encounter Additional Health Concerns Assessment Noted Time PHQ-9 Depression Total Score: 0 12/06/19 18 3:00 PM EDT documented as of this encounter Care Teams Life Consultant Relationship Specialty Start Date End Date Edgar Fournier MD [address] [place] [phone] PCP - General 08/18/17 06/23/21 Jazmín Olmedo, JANA Txp Post Coordinator Transplant Hepatology 11/07/17 Jack Ordoñez MD [address] [place] [address] Consulting Physician Transplant Hepatology 01/05/18 Estephania Sharif, PharmD Pharmacist Pharmacist 11/11/19 documented as of this encounter
--- OUTSIDE RECORDS SUMMARY | 2024-07-12 12:36 | XMS_ITS | Encounter Summary ---
Author Organization [facility] Address [address] [place] [address] Care Team Providers Care Lidding Machine Operator Name Role Phone Edgar Fournier MD Primary Care Provider [phone] Maile Valles RN Unavailable Unavail able Jack Ordoñez MD Unavailable [phone] Estephania Sharif PharmD Unavailable Christine vailable [...] release of HIV test results or diagnoses. [id number] Health Encounter Details Date Type Department Care Team (Late st Contact Info) Description 09/18/2020 Telephone [facility] Liver Transplant at [place] [id number] [facility] [address] [place] [address] Anne Whitt MA Social History [...] Telephone Encounter - Anne Whitt MA - 09/22/2020 9:42 AM EST Called pt and relayed info about BMI 40 being cut off for kidney transplant. * Telephone Encounter - Maile Valles RN - 09/18/2020 2:15 PM EST Patient's referral for kidney transplant was closed due to patient's weight. BMI cut off is 40. Patient would need to lose weight and be re-referred by lard maker/dialysis center. Txherlinda WELCH to update patient. * Telephone Encounter - Anne Whitt MA - 09/18/2020 12:56 PM EST Pt states that he was told while he was in the hospital he couldn't be put on the kidney txp list because of his infection and he was on antibiotics. Pt states that he has now been cleared by ID and wants to know who he should reach out to in order to be put on kidney txp list and start the workup process. He states that he has family members that would be able to donate for him. documented in this encounter Plan of Treatment Upcoming Encounters Date Type Department Care Team (Late st Contact Info) Description 07/15/2024 9:00 AM EST Hospital Encounter [facility] Interventional Radiology [address] [place] [phone] Herve Carrillo MD [address] [email or web address] [address] [place] [address] documented as of this encounter Visit Diagnoses Not on filedocumented in this encounter Additional Health Concerns Assessment Noted Time PHQ-9 Depression Total Score: 0 12/06/19 18 3:00 PM EDT documented as of this encounter Care Teams Lidding Machine Operator Relationship Specialty Start Date End Date Edgar Fournier MD [address] [place] [address] [place] [address] PCP - General 08/18/17 06/23/21 Maile Valles, JANA Txp Post Coordinator Transplant Hepatology 11/07/17 Jack Ordoñez MD [address] [place] [address] Consulting Physician Transplant Hepatology 01/05/18 Estephania Sharif, DarrianD Pharmacist Pharmacist 11/11/19 documented as of this encounter
--- OUTSIDE RECORDS SUMMARY | 2024-07-12 12:36 | XMS_ITS | Encounter Summary ---
Author Organization [facility] Address [address] [place] [address] Care Team Providers Care International Editorial Producer Name Role Phone Edgar Fournier MD Primary Care Provider [phone] Maile Valles RN Unavailable Unavail able Jack Ordoñez MD Unavailable [phone] Estephania Sharif PharmD Unavailable Christine vailable [...] release of HIV test results or diagnoses. [id number] Encounter Details Date Type Department Care Team (Latest Contact Info) Description 09/17/2020 Travel Social History Tobacco Use Types Packs/Day [...] AM EST Hospital Encounter [facility] Interventional Radiology [address] [place] [phone] Herve Carrillo MD [address] [facility] Ed [address] [place] [phone] documented as of this encounter Visit Diagnoses Not on filedocumented in this encounter Additional Health Concerns Assessment Noted Time PHQ-9 Depression Total Score: 0 12/06/19 18 3:00 PM EDT documented as of this encounter Care Teams International Editorial Producer Relationship Specialty Start Date End Date Edgar Fournier MD [address] [place] [address] [place] [address] PCP - General 08/18/17 06/23/21 Maile Valles, JANA Txp Post Coordinator Transplant Hepatology 11/07/17 Jack Ordoñez MD [address] [place] [phone] Consulting Physician Transplant Hepatology 01/05/18 Estephania Sharif, DarrianD Pharmacist Pharmacist 11/11/19 documented as of this encounter
--- OUTSIDE RECORDS SUMMARY | 2024-07-12 12:36 | XMS_ITS | Encounter Summary ---
Author Organization [facility] Address [address] [place] [address] Care Team Providers Care Signals Intelligence Analyst Name Role Phone Edgar Fournier MD Primary Care Provider [phone] Maile Valles RN Unavailable Unavail able Jack Ordoñez MD Unavailable [phone] Estephania Sharif PharmD Unavailable Christine vailable [...] release of HIV test results or diagnoses. [id number] Reason for Visit * Reason Comments Medication Refill Encounter Details Date Type Department Care Team (Late st Contact Info) Description 01/05/2021 Refill [facility] Liver Transplant at [place] [address] [facility] [address] [place] [address] Anne Whitt MA Social History [...] 07/15/2024 9:00 AM EST Hospital Encounter [facility] Interventional Radiology [address] [place] [phone] Herve Carrillo MD [address] [facility] Ed 3[address] [place] [phone] documented as of this encounter Visit Diagnoses Not on filedocumented in this encounter Additional Health Concerns Assessment Noted Time PHQ-9 Depression Total Score: 0 12/06/19 18 3:00 PM EDT documented as of this encounter Care Teams Signals Intelligence Analyst Relationship Specialty Start Date End Date Edgar Fournier MD [address] [place] [address] [place] [address] PCP - General 08/18/17 06/23/21 Maile Valles, JANA Txp Post Coordinator Transplant Hepatology 11/07/17 Jack Ordoñez MD [address] [place] [phone] Consulting Physician Transplant Hepatology 01/05/18 Estephania Sharif, DarrianD Pharmacist Pharmacist 11/11/19 documented as of this encounter
--- OUTSIDE RECORDS SUMMARY | 2024-07-12 12:36 | XMS_ITS | Encounter Summary ---
Author Organization [facility] Address [address] [place] [address] Care Team Providers Care Setter Cold Rolling Machine Name Role Phone Edgar Fournier MD Primary Care Provider [phone] Maile Valles RN Unavailable Unavail able Jack Ordoñez MD Unavailable [phone] Estephania Sharif PharmD Unavailable Christine vailable [...] release of HIV test results or diagnoses. [id number] Reason for Visit * Reason Comments Move Clinic Appt Up Encounter Details Date Type Department Care Team (Late st Contact Info) Description 01/25/2021 Telephone [facility] Kidney Transplant at [address] [place] [address] Joselin Stanley MA Move Clinic Appt Up Social History Tobacco Use Types Packs/Day Years [...] Telephone Encounter - Joselin Stanley MA - 01/25/2021 2:59 PM EDT Called patient and moved clinic appointment up to March 02, 2021 at 1:50 PM. Patient will see the change in myChart, reminder letter not needed. documented in this encounter Plan of Treatment Upcoming Encounters Date Type Department Care Team (Late st Contact Info) Description 07/15/2024 9:00 AM EST Hospital Encounter [facility] Interventional Radiology [address] [place] [phone] Herve Carrillo MD 3130 [facility] 3200 [place] [phone] documented as of this encounter Visit Diagnoses Not on filedocumented in this encounter Additional Health Concerns Assessment Noted Time PHQ-9 Depression Total Score: 0 12/06/19 18 3:00 PM EDT documented as of this encounter Care Teams Setter Cold Rolling Machine Relationship Specialty Start Date End Date Edgar Fournier MD [address] [place] [address] [place] [address] PCP - General 08/18/17 06/23/21 Maile Valles, JANA Txp Post Coordinator Transplant Hepatology 11/07/17 Jack Ordoñez MD [address] [place] [phone] Consulting Physician Transplant Hepatology 01/05/18 Estephania Sharif, PharmD Pharmacist Pharmacist 11/11/19 documented as of this encounter
--- OUTSIDE RECORDS SUMMARY | 2024-07-12 12:36 | XMS_ITS | Encounter Summary ---
Author Organization [facility] Address [address] [place] [address] Care Team Providers Care Flea Market Seller Name Role Phone Edgar Fournier MD Primary Care Provider [phone] Maile Valles RN Unavailable Unavail able Jack Ordoñez MD Unavailable [phone] Estephania Sharif PharmD Unavailable Christine vailable [...] release of HIV test results or diagnoses. [id number] Reason for Visit * Reason Comments Medication Refill Encounter Details Date Type Department Care Team (Late st Contact Info) Description 12/04/2020 Refill [facility] Liver Transplant at [facility] 3[address] [facility] [address] [place] [address] Jack Ordoñez MD [address] [place] [address] Social History Tobacco Use Types [...] Encounter [facility] Interventional Radiology [address] [place] [phone] Herve Carrillo MD 3130 [facility] [address] [place] [phone] documented as of this encounter Visit Diagnoses Not on filedocumented in this encounter Additional Health Concerns Assessment Noted Time PHQ-9 Depression Total Score: 0 12/06/19 18 3:00 PM EDT documented as of this encounter Care Teams Flea Market Seller Relationship Specialty Start Date End Date Edgar Fournier MD [address] [place] [address] [place] [address] PCP - General 08/18/17 06/23/21 Maile Valles, JANA Txp Post Coordinator Transplant Hepatology 11/07/17 Jack Ordoñez MD [address] [place] [phone] Consulting Physician Transplant Hepatology 01/05/18 Estephania Sharif, DarrianD Pharmacist Pharmacist 11/11/19 documented as of this encounter
--- OUTSIDE RECORDS SUMMARY | 2024-07-12 12:36 | XMS_ITS | Encounter Summary ---
Author Organization [facility] Address [address] [place] [address] Care Team Providers Care Home School Liaison Officer Name Role Phone Edgar Fournier MD Primary Care Provider [phone] Maile Valles RN Unavailable Unavail able Jack Ordoñez MD Unavailable [phone] Estephania Sharif PharmD Unavailable Christine vailable [...] release of HIV test results or diagnoses. [id number] Reason for Visit * Reason Comments ID Consult Visit (Follow Up) Osteomyelitis Encounter Details Date Type Department Care Team (Late st Contact Info) Description 10/08/2020 10:40 AM EST Office Visit [facility] at [facility] [address] [place] [address] Dav Johnson MD [address] [facility] [address] [facility] [place] [address] Vertebral osteomyelitis ([facility]) Social History Tobacco Use Types Packs/Day Years [...] as of this encounter Progress Notes * Dav Johnson MD - 10/08/2020 10:40 AM EST Patient ID: Aiden Stauffer Jr. is a 45 y.o. male. Chief Complaint Patient presents with ??? ID Consult Visit (Follow Up) ??? Osteomyelitis History of Present Illness 45 y.o. M s/p OLT 2017 with ESRD on home HD 5x a week re-admitted for vertebral osteomyelitis afterhaving a lapse in abx related to leaving rehab facility [place]. Per prior notes, He was admitted to [place]spital [place] in mid April for back pain and found to have epidural abscess for which lumbar laminectomy was done. RODNEY grew on an operative culture and he was prescribed vancomycin with hemodial ysis. Apparently there were issues with dialysis and it is not clear if he was receiving all doses.He was at some point changed to oral antibiotics. On May 28 he went to an ER in [place] as he was havingworsening back pain and leg weakness. He was transferred to [facility]. MRI showed changes consistent with lumbar discitis/osteomyelitis/epidural abscess (see below). An IR aspiration was performed on 06/03 with GPC seen on gram stain but no growth on the culture (patient having been on antibiotics at the time). He was seen by ID consult service and recommended to receive 8 weeks vancomycin (if dated from time of [facility] admission this would be until 07/23). He left [facility] and was unable to get abx set up at home, so was readmitted for back pain and abx set up on 07/14/20. Home HD makes abx dosing difficult, so opted for a course with Dalbavancin and Cipro. ?? Antibiotics at discharge: Dalbavancin 1500mg IV weekly x2 Levaquin 250mg PO daily, end date 09/08/20 (8 weeks) Tolerated abx without side effects. No diarrhea, rash. Has transitioned back to in center HD 3x a week (against his wishes). Making progress with PT and now walking with a walker mostly, but some freely as well, up to 60 ft.About to transition to a cane. Pain is minimal at this point. Pain down to 2/10. No other concerns. 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 He has a past surgical history that includes TIPS procedure (10/2016); TIPS Revision (04/2017); Liver transplantation (N/A, 10/08/2017); Left and Right Heart Cath (N/A, 06/05/2018); Abdominal surgery;Esophagogastroduodenoscopy (N/A, 07/24/2019); Esophagogastroduodenoscopy (N/A, 05/29/2020); Back surgery (04/2020); Tympanostomy tube placement (07/2020); and Esophagogastroduodenoscopy (N/A, 08/11/2020). His family history includes Diabetes in his sister. He reports that he has never smoked. He has never used smokeless tobacco. He reports that he does not drink alcohol or use drugs. Allergies Codeine sulfate and Codeine Medications Outpatient Encounter Medications as of 10/08/2020 Medication Sig Dispense Refill ??? aspirin 81 [...] PM. ) 15 mL 5 ??? lancets (ONETOUCH DELICA LANCETS) 33 gauge [facility] Use 1 strip as directed 4 times [...] at bedtime. 15 tablet 0 ??? [DISCONTINUED] levoFLOXacin (LEVAQUIN) 500 MG tablet Take 0.5 tablets (250 mg total) by mouth at bedtime. 25 tablet 0 No facility-administered encounter medications on file as of 10/08/2020. Review of Systems Constitutional: Negative for chills and fever. HENT: Negative for mouth sores. Eyes: Negative for pain and visual disturbance. Respiratory: Negative for cough and shortness of breath. Cardiovascular: Negative for chest pain and leg swelling. Gastrointestinal: Negative for abdominal pain and diarrhea. Musculoskeletal: Positive for arthralgias. Negative for myalgias and neck stiffness. Skin: Negative for rash and wound. Neurological: Positive for weakness. Negative for headaches. Psychiatric/Behavioral: Negative for behavioral problems and confusion. Vitals There were no vitals taken for this visit. Physical Exam General: no acute distress Respiratory: no stridor or audible wheeze Psychiatric: alert and oriented, follow commands, thought content and affect appropriate Review of Lab Results Lab Results Component Value Date HGB 8.3 (L) 09/03/2020 HCT 25.3 (L) 09/03/2020 WBC 3.8 09/03/2020 PLT 176 09/03/2020 Lab Results Component Value Date NEUTOPHILPCT 60.4 09/03/2020 LYMPHOPCT 33.6 09/03/2020 MONOPCT 1.0 09/03/2020 EOSPCT 3.0 09/03/2020 BASOPCT 0.0 09/03/2020 NEUTROABS 2,295 09/03/2020 LYMPHSABS 1,277 09/03/2020 MONOSABS 38 (L) 09/03/2020 EOSABS 114 09/03/2020 BASOSABS 0 09/03/2020 Lab Results Component Value Date NA 142 08/19/2020 K 3.6 08/19/2020 CL 100 08/19/2020 CO2 32 (A) 08/19/2020 GLUCOSE 115 08/19/2020 BUN 17 08/19/2020 CREATININE 4.1 (A) 08/19/2020 MG 2.3 07/15/2020 PHOS 3.7 08/19/2020 Lab Results Component Value Date ALKPHOS 86 08/19/2020 AST 10 08/19/2020 ALT 12 08/19/2020 ALBUMIN 3.4 08/19/2020 BILIDIRECT 0.1 08/19/2020 BILITOT 0.7 08/19/2020 PROT 7.8 08/19/2020 Lab Results Component Value Date [id number] Nonreactive 01/13/2019 Lab Results Component Value Date QUANTIFERTB NEGATIVE 08/21/2017 Lab Results Component Value Date ESR 15 09/03/2020 ESR 21 (H) 07/15/2020 ESR 21 (H) 06/22/2020 ESR 25 (H) 06/15/2020 ESR 28 (H) 06/01/2020 Lab Results Component Value Date CRP 14.3 (H) 09/03/2020 CRP 23.8 (H) 07/14/2020 CRP 94.2 (H) 06/22/2020 CRP 74.5 (H) 06/15/2020 CRP 47.0 (H) 06/08/2020 MRI 09/15/20 No acute interval changes suspected. Evolution of L5-S1 osteomyelitis with discitis. Reduced fluid collection at the laminectomy site. Assessment/Plan 45 y.o. M s/p OLT 2018 admitted for MRSE lumbar osteomyelitis Vertebral osteomyelitis (CMS Dx) - prior cx's with MRSE, recently GPCs which failed to grow - s/p Dalbavancin x2 and Levaquin for 8 weeks - symptomatically much improved - repeat ESR, CRP improved, near normal - repeat MRI L spine with normal evolution and decreased fluid size - monitor for worsening symptoms but I think he is cured at this point - RTC prn Number and Complexity of Problems (Level 3) During this encounter, I addressed 1 stable chronic illness Amount and/or Complexity of Data Ordered, Reviewed, or Analyzed (Level 4) I reviewed 1 external note(s) from:. I reviewed 2 test(s) including:. Risk of Complication and/or Morbidity or Mortality of Patient Management (Level 3) The patient's management entails Low risk of complications and/or morbidity or mortality. Overall LOS: 3 This was a Phone conversation, in lieu of an in-person visit. The patient provided verbal consent to participate in the telehealth visit. I spent 12 minutes speaking with the patient, conducting an interview, performing a limited exam, and educating the patient on my assessment and plan. I also spent 3 minutes, on the same day as the encounter, preparing to see the patient (eg, review of tests), counseling and educating the family/caregiver , documenting clinical information in the electronic or other health record, independently interpreting results and communicating results to the patient/family/caregiver and performing [id number] activities. documented in this encounter Plan of Treatment Upcoming Encounters Date Type Department Care Team (Late st Contact Info) Description 07/15/2024 9:00 AM EST Hospital Encounter [facility] Interventional Radiology [address] [place] [address] Herve Carrillo MD [address] [facility] [address] [place] [address] documented as of this encounter Visit Diagnoses Diagnosis Vertebral osteomyelitis (CMS-HCC) Unspecified osteomyelitis, other specified site * Assessment & Plan Note - Dav Johnson MD - 10/08/2020 10:40 AM ESTAssociated Problem(s): Vertebral osteomyelitis (CMS-HCC) - prior cx's with MRSE, recently GPCs which failed to grow - s/p Dalbavancin x2 and Levaquin for 8 weeks - symptomatically much improved - repeat ESR, CRP improved, near normal - repeat MRI L spine with normal evolution and decreased fluid size - monitor for worsening symptoms but I think he is cured at this point - RTC prn documented in this encounter Additional Health Concerns Assessment Noted Time PHQ-9 Depression Total Score: 0 12/06/19 18 3:00 PM EDT documented as of this encounter Care Teams Home School Liaison Officer Relationship Specialty Start Date End Date Edgar Fournier MD [address] [place] [address] PCP - General 08/18/17 06/23/21 Maile Valles, RN Txp Post Coordinator Transplant Hepatology 11/07/17 Jack Ordoñez MD [address] [place] [address] Consulting Physician Transplant Hepatology 01/05/18 Estephania Sharif, PharmD Pharmacist Pharmacist 11/11/19 documented as of this encounter
--- OUTSIDE RECORDS SUMMARY | 2024-07-12 12:37 | XMS_ITS | Encounter Summary ---
Author Organization [facility] Address [address] [place] [address] Care Team Providers Care Child Development Consultant Name Role Phone Edgar Fournier MD Primary Care Provider [phone] Maile Valles RN Unavailable Unavail able Jack Ordoñez MD Unavailable [phone] Estephania Sharif PharmD Unavailable Christine vailable [...] release of HIV test results or diagnoses. [id number] Reason for Visit * Reason Comments Infusion Dalvance * Episode Based Authorization (Routine) - Closed Specialty Diagnoses / Procedures Referred By Contac t Referred To Contact Diagnoses Vertebral osteomyelitis ([facility]) [facility] [address]CC[address] [place] [address] Phone: tel: [facility] Infusion Services at [facility] [address] [place] [address] Phone: tel: fax: Referral ID Status Reason Start Date Expiration Date Visits Re quested Visits Authorized [id number] Closed 07/16/2020 10/14/2020 100 100 Encounter Details Date Type Department Care Team (Late st Contact Info) Description 07/21/2020 9:00 AM EST Infusion [facility] Infusion Services at [facility] [address] [place] [address] Edgar Fournier MD [address] [place] [address] [place] [address] Vertebral osteomyelitis (CMS-HCC) (Primary Dx) Social History Tobacco Use [...] have Coronavirus / COVID-19? No / Unsure 07/21/2020 9:04 AM EST documented as of this encounter Last Filed Vital Signs Vital Sign Reading Time Taken Comments Blood Pressure 138/84 07/21/2020 10:53 AM EST Pulse 82 07/21/2020 10:53 AM EST Temperature 36.8 ??C (98.2 ??F) 07/21/2020 9:22 AM ES T Respiratory Rate 22 07/21/2020 9:22 AM EST Oxygen Saturation - - Inhaled Oxygen Concentration - - Weight - - Height - - Body Mass Index - - documented in this encounter Nursing Notes * Zoey Mackenzie RN - 07/21/2020 11:00 AM EST pts infusion complete, pt denies any needs or concerns at this time, IV site removed, site without redness. Pt given AVS and has next follow up appointment. * Zoey Mackenzie RN - 07/21/2020 9:00 AM EST Pt here for dalvance infusion. Pt denies other needs or concerns at this time. documented in this encounter Plan of Treatment Upcoming Encounters Date Type Department Care Team (Late st Contact Info) Description 07/15/2024 9:00 AM EST Hospital Encounter [facility] Interventional Radiology [address] [place] [address] Herve Carrillo MD [address] [facility] [address] [place] [address] documented as of this encounter Visit Diagnoses Diagnosis Vertebral osteomyelitis (CMS-HCC)- Primary Unspecified osteomyelitis, other specified site documented in this encounter Administered Medications Inactive Administered Medications - up to 3 most recent administrations Medication Order MAR Action Action Date Dose Rate Site dalbavancin (DALVANCE) 1,500 mg in dextrose 5% in water (D5W) 500 mL 1,500 mg, Intravenous, Administer over 30 Minutes, Once, On Mon07/21/20 at 0930, For 1 dose, For patient with CrCl greater than or equal to 30 mL/min or on regular hemodialysis. Not compatible with normal saline. Infuse over 30 minutesIndications:Vertebral osteomyelitis (CMS-HCC) New Bag 07/21/2020 10:09 AM EST 1,500 mg 1000 mL/hr documented in this encounter Additional Health Concerns Assessment Noted Time PHQ-9 Depression Total Score: 0 12/06/19 18 3:00 PM EDT documented as of this encounter Care Teams Child Development Consultant Relationship Specialty Start Date End Date [place] [address] PCP - General 08/18/17 06/23/21 Maile Valles, JANA Txp Post Coordinator Transplant Hepatology 11/07/17 Jack Ordoñez MD [address] [place] [phone] Consulting Physician Transplant Hepatology 01/05/18 Estephania Sharif, PharmD Pharmacist Pharmacist 11/11/19 documented as of this encounter
--- OUTSIDE RECORDS SUMMARY | 2024-07-12 12:37 | XMS_ITS | Encounter Summary ---
Author Organization [facility] Address [address] [place] [address] Care Team Providers Care Statistics Professor Name Role Phone Edgar Fournier MD Primary Care Provider [phone] Maile Valles RN Unavailable Unavail able Jack Ordoñez MD Unavailable [phone] Estephania Sharif PharmD Unavailable Christine vailable [...] release of HIV test results or diagnoses. [id number] Health Encounter Details Date Type Department Care Team (Late st Contact Info) Description 08/12/2020 Telephone [facility] Liver Transplant at [place] [id number] [facility] [address] [place] [address] Nae Shannon MA Social History [...] have Coronavirus / COVID-19? 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 However, surface Ag converted from non-reactive to reactive. Recent HBV quant viral load < 20 - which means not quantifiable. Will continue routine surveillance per protocol. Reviewed with patient who verbalized understanding. * Telephone Encounter - Nae Shannon MA - 08/12/2020 8:24 AM EST Pt says that his Cellcept & Entecavir was cut back due to being back in the clinic for his dialysis He says that he has tested positive for HEP B after his last blood drawn at dialysis He is curious is the decrease in his Cellcept & Entecavir has caused this to happen? He would like to speak to Maile Valles CC documented in this encounter Plan of Treatment Upcoming Encounters Date Type Department Care Team (Late st Contact Info) Description 07/15/2024 9:00 AM EST Hospital Encounter [facility] Interventional Radiology [address] [place] [address] Herve Carrillo MD [address] [place] [address] documented as of this encounter Visit Diagnoses Not on filedocumented in this encounter Additional Health Concerns Assessment Noted Time PHQ-9 Depression Total Score: 0 12/06/19 18 3:00 PM EDT documented as of this encounter Care Teams Statistics Professor Relationship Specialty Start Date End Date Edgar Fournier MD [address] [place] [address] [place] [phone] PCP - General 08/18/17 06/23/21 Maile Valles, JANA Txp Post Coordinator Transplant Hepatology 11/07/17 Jack Ordoñez MD [address] [place] [address] Consulting Physician Transplant Hepatology 01/05/18 Estephania Sharif, PharmD Pharmacist Pharmacist 11/11/19 documented as of this encounter
--- OUTSIDE RECORDS SUMMARY | 2024-07-12 12:37 | XMS_ITS | Encounter Summary ---
Author Organization [facility] Address [address] [place] [address] Care Team Providers Care Heel Curver Name Role Phone Edgar Fournier MD Primary Care Provider [phone] Maile Valles RN Unavailable Unavail able Jack Ordoñez MD Unavailable [phone] Estephania Sharif PharmD Unavailable Christine vailable [...] release of HIV test results or diagnoses. [id number] Reason for Visit * Reason Comments Results Encounter Details Date Type Department Care Team (Late st Contact Info) Description 08/18/2020 Telephone [facility] Liver Transplant at [address] [place] [address] Maile Valles, JANA Results Social History [...] Telephone Encounter - Maile Valles RN - 08/18/2020 2:11 PM EST ----- Message from Tej Sullivan MD sent at 08/18/2020 2:09 PM EST ----- Please let him know that stomach biopsies do not show any significant abnormality. ----- Message ----- From: Interface, Lab In [facility] Sent: 08/12/2020 4:17 PM EST To: Tej Sullivan MD documented in this encounter Plan of Treatment Upcoming Encounters Date Type Department Care Team (Late st Contact Info) Description 07/15/2024 9:00 AM EST Hospital Encounter [facility] Interventional Radiology [address] [place] [address] Herve Carrillo MD [address] [facility] [address] Surgery [place] [address] documented as of this encounter Visit Diagnoses Not on filedocumented in this encounter Additional Health Concerns Assessment Noted Time PHQ-9 Depression Total Score: 0 12/06/19 18 3:00 PM EDT documented as of this encounter Care Teams Heel Curver Relationship Specialty Start Date End Date [place] [address] PCP - General 08/18/17 06/23/21 Maile Valles, JANA Txp Post Coordinator Transplant Hepatology 11/07/17 Jack Ordoñez MD [address] [place] [address] Consulting Physician Transplant Hepatology 01/05/18 Estephania Sharif, DarrianD Pharmacist Pharmacist 11/11/19 documented as of this encounter
--- OUTSIDE RECORDS SUMMARY | 2024-07-12 12:37 | XMS_ITS | Encounter Summary ---
Author Organization [facility] Address [address] [place] [address] Care Team Providers Care Student Truck Driver Name Role Phone Edgar Fournier MD Primary Care Provider [phone] Maile Valles RN Unavailable Unavail able Jack Ordoñez MD Unavailable [phone] Estephania Sharif PharmD Unavailable Christine vailable [...] release of HIV test results or diagnoses. [id number] Health Encounter Details Date Type Department Care Team (Late st Contact Info) Description 08/03/2020 Orders Only [facility] Liver Transplant at [facility] [address] [facility] [address] [place] [address] Anne Whitt MA Liver replaced by transplant ([facility]); Encounter for therapeutic drug monitoring Social History [...] as of this encounter Progress Notes * Anne Whitt MA - 08/03/2020 8:41 AM EST Orders sent to outside lab with confirmation received documented in this encounter Plan of Treatment Upcoming Encounters Date Type Department Care Team (Late st Contact Info) Description 07/15/2024 9:00 AM EST Hospital Encounter [facility] Interventional Radiology [address] [place] [address] Herve Carrillo MD [address] [facility] [address] [place] [address] documented as of this encounter Visit Diagnoses Diagnosis Liver replaced by transplant (CMS-HCC) Liver replaced by transplant Encounter for therapeutic drug monitoring documented in this encounter Additional Health Concerns Assessment Noted Time PHQ-9 Depression Total Score: 0 12/06/19 18 3:00 PM EDT documented as of this encounter Care Teams Student Truck Driver Relationship Specialty Start Date End Date Edgar [place] [address] PCP - General 08/18/17 06/23/21 Maile Valles, JANA Txp Post Coordinator Transplant Hepatology 11/07/17 Jack Ordoñez MD [address] [place] [phone] Consulting Physician Transplant Hepatology 01/05/18 Estephania Sharif, DarrianD Pharmacist Pharmacist 11/11/19 documented as of this encounter
--- OUTSIDE RECORDS SUMMARY | 2024-07-12 12:37 | XMS_ITS | Encounter Summary ---
Author Organization [facility] Address [address] [place] [address] Care Team Providers Care Television Analyzer Name Role Phone Edgar Fournier MD Primary Care Provider [phone] Maile Valles RN Unavailable Unavail able Jack Ordoñez MD Unavailable [phone] Estephania Sharif PharmD Unavailable Christine vailable [...] release of HIV test results or diagnoses. [id number] Encounter Details Date Type Department Care Team (Latest Contact Info) Description 08/09/2020 Travel Social History Tobacco Use Types Packs/Day [...] have Coronavirus / COVID-19? No / Unsure 08/09/2020 9:08 AM EST documented as of this encounter Plan of Treatment Upcoming Encounters Date Type Department Care Team (Late st Contact Info) Description 07/15/2024 9:00 AM EST Hospital Encounter [facility] Interventional Radiology [address] [place] [address] Herve Carrillo MD [address] [facility] [address] [place] [address] documented as of this encounter Visit Diagnoses Not on filedocumented in this encounter Additional Health Concerns Infection Onset Date Last Indicated Resolved Time Rule Out COVID-19 08/09/2020 08/09/2020 08/10/2020 10:14 AM EST Assessment Noted Time PHQ-9 Depression Total Score: 0 12/06/19 18 3:00 PM EDT documented as of this encounter Care Teams Television Analyzer Relationship Specialty Start Date End Date Edgar Fournier MD [address] [place] [address] [place] [address] PCP - General 08/18/17 06/23/21 Maile Valles, RN Txp Post Coordinator Transplant Hepatology 11/07/17 Jack Ordoñ[place] [address] [place] [phone] Consulting Physician Transplant Hepatology 01/05/18 Estephania Sharif, DarrianD Pharmacist Pharmacist 11/11/19 documented as of this encounter
--- OUTSIDE RECORDS SUMMARY | 2024-07-12 12:37 | XMS_ITS | Encounter Summary ---
Author Organization [facility] Address [address] [place] [address] Care Team Providers Care Finishing Machine Operator Name Role Phone Edgar Fournier MD Primary Care Provider [phone] Maile Valles RN Unavailable Unavail able Jack Ordoñez MD Unavailable [phone] Estephania Sharif PharmD Unavailable Christine vailable [...] release of HIV test results or diagnoses. [id number] Reason for Visit * Reason Comments IV Medication dalvance * Episode Based Authorization (Routine) - Closed Specialty Diagnoses / Procedures Referred By Contac t Referred To Contact Diagnoses Vertebral osteomyelitis ([facility]) [facility] 8CCP [address] [place] [address] Phone: tel: [facility] Infusion Services at [facility] [address] [place] [address] Phone: tel: fax: Referral ID Status Reason Start Date Expiration Date Visits Re quested Visits Authorized [id number] Closed 07/16/2020 10/14/2020 100 100 Encounter Details Date Type Department Care Team (Late st Contact Info) Description 07/28/2020 11:30 AM EST Infusion [facility] Infusion Services at [facility] [address] [place] [address] Edgar Fournier MD [address] [place] [address] [place] [address] Vertebral osteomyelitis (CMS-HCC) (Primary Dx) [...] Sign Reading Time Taken Comments Blood Pressure 168/93 07/28/2020 12:28 PM EST Pulse 64 07/28/2020 12:28 PM EST Temperature 36.6 ??C (97.9 ??F) 07/28/2020 11:[address] Respiratory Rate 18 07/28/2020 12:28 PM EST Oxygen Saturation - - Inhaled Oxygen Concentration - - Weight - - Height - - Body Mass Index - - documented in this encounter Nursing Notes * Thom Rosas RN - 07/28/2020 11:30 AM EST Patient is here for dalvance infusion, alert and orientedx4, vital sign is stable,ambulatory without assistance, no s/s of infection, no medications change, no worsen medical problems recently. Fall risk assessment completed, chair locked. RN start iv and infusion, patient tolerated well, no c/o pain, no reactions. Given AVS and discharge paper, teaching patient about medications and following up, discharged patient with ambulatory. documented in this encounter Plan of Treatment Upcoming Encounters Date Type Department Care Team (Late st Contact Info) Description 07/15/2024 9:00 AM EST Hospital Encounter [facility] Interventional Radiology [address] [place] [phone] Herve Carrillo MD [address] [facility] [address] [place] [address] documented as of this encounter [...] Intravenous, Administer over 30 Minutes, Once, On Mon07/28/20 at 1200, For 1 dose, For patient with CrCl greater than or equal to 30 mL/min or on regular hemodialysis. Not compatible with normal saline. Infuse over 30 minutesIndications:Vertebral osteomyelitis (CMS-HCC) New Bag 07/28/2020 11:51 AM EST 1,500 mg 1000 mL/hr documented in this encounter Additional Health Concerns Assessment Noted Time PHQ-9 Depression Total Score: 0 12/06/19 18 3:00 PM EDT documented as of this encounter Care Teams Finishing Machine Operator Relationship Specialty Start Date End Date Edgar Fournier MD [address] [place] [address] [place] [address] PCP - General 08/18/17 06/23/21 Maile Valles, JANA Txp Post Coordinator Transplant Hepatology 11/07/17 Jack Ordoñez MD [address] [place] [phone] Consulting Physician Transplant Hepatology 01/05/18 Estephania Sharif, PharmD Pharmacist Pharmacist 11/11/19 documented as of this encounter
--- OUTSIDE RECORDS SUMMARY | 2024-07-12 12:37 | XMS_ITS | Encounter Summary ---
Author Organization [facility] Address [facility] [place] [address] Care Team Providers Care It Compliance Manager Name Role Phone Edgar Fournier MD Primary Care Provider [phone] Maile Valles RN Unavailable Unavail able Jack Ordoñez MD Unavailable [phone] Estephania Sharif PharmD Unavailable Christine vailable [...] release of HIV test results or diagnoses. [id number] Health Reason for Visit * Auth/Cert Specialty Diagnoses / Procedures Referred By Contact Referred To Contact Gastroenterology Diagnoses luz esoophagitis, Procedures EGD 67005 (CPT??) - DC ESOPHAGOGASTRODUODENOSCOPY TRANSORAL DIAGNOSTIC 28270 (CPT??) - DC EGD TRANSORAL BIOPSY SINGLE/MULTIPLE [facility] ENDOSCOPY [address] [place] [address] Phone: tel:[phone] Referral ID Status Reason Start Date Expiration Date Visits Re quested Visits Authorized [id number] 1 1 Encounter Details Date Type Department Care Team (Late st Contact Info) Description 08/11/2020 11:34 AM EST Anesthesia Event [facility] ENDOSCOPY [address] [place] [phone] Manuela Richardson MD [address] [place] [address] Anesthesia Record Procedure Summary Procedure Name Responsible Anesthesiologist Anesthesia Start Time Anesthesia Stop Time EGD Manuela Richardson MD 08/11/20 1134 08/11/20 1 153 Events Date Time Event Comment 08/11/2020 1134 An Start 1134 An Start Data 1137 An Induction 1139 Time Out 1145 An Emergence 1148 Remove Airway Device 1148 an stop data 1153 An Stop Meds Name Total lidocaine (XYLOCAINE) 20 mg/mL (2%) inje ction 100 mg propofol (DIPRIVAN) 10 mg/ml IV injectio n (BOLUS) 30 mg propofol (DIPRIVAN) 10 mg/ml infusion - 100mL VIAL SIZE 92.42 mg lactated ringers infusion 150 mL * Agents Name N2O Auxiliary O2 O2 N2O Air * Blood No blood administrations on file. Lines, Drains, and Airways Type Details Placement Removal Hemodialysis Access (present on admissio n); Arteriovenous Fistula; Left; Forearm 06/09/20 0908 by Zoila Sanders RN 11/01/21 1636 by Hodan Neves RN Peripheral IV 08/11/20; 1123; 22 G ; Posterior, Right; Hand; Standard; Tolerated well 08/11/20 1123 by Zaynab Alberto RN 08/11/20 1240 by Moises Carter RN Anesthesia Airway Device 08/11/20; 1135; Nasal Cannula Salter; Capnograph; 08/11/20; 1148 08/11/20 1135 by Priya Vaughan CRNA 08/11/20 1148 by Priya Vaughan CRNA documented in this encounter Social History [...] as of this encounter Progress Notes * Manuela Richardson MD - 08/11/2020 12:35 PM EST Anesthesia Post Note Patient: Aiden Stauffer Jr. Procedure(s) Performed: Procedure(s): EGD Anesthesia type: MAC Patient location: Endoscopy PACU Post pain: Adequate analgesia Post assessment: no apparent anesthetic complications, tolerated procedure well and no evidence of recall Last Vitals: Vitals: 08/11/20 1056 08/11/20 1200 08/11/20 1215 BP: 152/85 131/69 142/87 BP Location: Right arm Patient Position: Lying Pulse: 86 93 Resp: 16 Temp: 97.8 ??F (36.6 ??C) 98.4 ??F (36.9 ??C) TempSrc: Oral Oral SpO2: 98% 96% 95% Post vital signs: stable Level of consciousness: awake, alert and oriented Complications: None documented in this encounter H&P Notes * Manuela Richardson MD - 08/11/2020 10:56 AM EST Images from the original note were not included. [facility] DEPARTMENT OF ANESTHESIOLOGY PRE-PROCEDURAL EVALUATION Aiden Stauffer Jr. is a 45 y.o. year old male presenting for: Procedure(s): EGD Surgeon: Tej Sullivan MD Chief Complaint luz esoophagitis, Review of Systems Anesthesia Evaluation Patient summary reviewed and nursing notes reviewed. No history of anesthetic complications I have reviewed the History and Physical Exam, any relevant changes are noted in the anesthesia pre-operative evaluation. Cardiovascular: Exercise tolerance: Pérez Met score: 4 - Raking leaves. Weeding or pushing a power mower.Hypertension (Takes metoprolol,procardia, and catapres) is. (-) past [place], CABG/stent, angina. ROS comment: Echo 2020 Study Conclusions - Left ventricle: The cavity [...] estimated. - Inferior vena cava: Poorly visualized. Neuro/Muscoloskeletal/Psych: (+) back problem. (-) neuromuscular disease, TIA, no depression. Pulmonary: (-) asthma, sleep apnea, no PE. GI/Hepatic/Renal: (+) liver disease (s/p liver transplant). GERD (takes protonix) is well controlled. Chronic renal disease (potassium 5.0 today), CRI and ESRD, hemodialysis. Date of last dialysis: 08/10. Comments: Esophagitis Esophageal candidiasis Endo/Other: (+) anemia (HCT 24.8), thrombocytopenia (platelets 125) and immunosuppression. Diabetes. (-) no bleeding disorder. Comments: Morbid obesity BMI 45 Outpatient opiate use (takes oxycodone as needed) Past Medical History Past Medical History: Diagnosis [...] ??? Sleep apnea ??? Vitamin D deficiency Past Surgical History Past Surgical History: Procedure Laterality Date ??? ABDOMINAL SURGERY ??? ESOPHAGOGASTRODUODENOSCOPY N/A 07/24/2019 Procedure: EGD WITH [...] Location: OR; Service: Transplant; Laterality: N/A; ??? TIPS PROCEDURE 10/2016 ??? TIPS Revision 04/2017 Family History Family History Problem Relation Age of Onset ??? Diabetes Sister ??? Anesthesia problems Neg Hx Social History Social History Socioeconomic History ??? Marital status: Spouse name: Not on file ??? Number of children: Not on file ??? Years of education: Not on file ??? Highest education level: Not on file Occupational History ??? Not on file Social Needs ??? Financial resource strain: Not on file ??? Food insecurity Worry: Not on file Inability: Not on file ??? Transportation needs Medical: Not on file Non-medical: Not on file Tobacco Use ??? Smoking status: Never Smoker ??? Smokeless tobacco: Never Used Substance and Sexual Activity ??? Alcohol use: No ??? Drug use: No ??? Sexual activity: Yes Partners: Female control/protection: Condom Lifestyle ??? Physical activity Days per week: Not on file Minutes per session: Not on file ??? Stress: Not on file Relationships ??? Social connections Talks on phone: Not on file Gets together: Not on file Attends advent service: Not on file Active member of club or organization: Not on file Attends meetings of clubs or organizations: Not on file Relationship status: Not on file ??? Intimate partner violence Fear of current or ex partner: Not on file Emotionally abused: Not on file Physically abused: Not on file Forced sexual activity: Not on file Other Topics Concern ??? Not on file Social History Narrative ??? Not on file Medications Allergies: Allergies Allergen Reactions ??? Codeine Sulfate Hyper ??? Codeine Other (See Comments) Becomes hyper Home Meds: Prior to Admission medications as of 07/21/20 0905 Medication Sig Taking? aspirin 81 MG chewable tablet Chew 1 tablet (81 mg total) by mouth daily with breakfast. blood sugar diagnostic Strp Use to test blood sugar up to 4 times a day. Diagnosis for use: E 9.65.For use with One Touch Verio meters. blood-glucose meter (The [employer] VERIO SYSTEM) [facility] Use as instructed. carBAMazepine (TEGRETOL) 200 mg tablet Take 200 mg by mouth at bedtime. cloNIDine HCL (CATAPRES) 0.1 MG tablet Take 1 tablet (0.1 mg total) by mouth 2 times a day. cycloSPORINE modified (NEORAL) 25 MG capsule Take 4 capsules (100 mg total) by mouth 2 times a day. doxazosin (CARDURA) 8 MG tablet 8 mg at bedtime. entecavir (BARACLUDE) 0.5 MG tablet Take 1 tablet (0.5 mg total) by mouth every 7 days. ergocalciferol (VITAMIN D2) 50,000 unit capsule Take 50,000 Units by mouth every Monday, ,and Monday. Twice a week fluticasone propionate (FLONASE) 50 mcg/actuation nasal spray Use into each nostril. gabapentin (NEURONTIN) 100 MG capsule Take 1 capsule (100 mg total) by mouth 2 times a day. hydrALAZINE (APRESOLINE) 100 MG tablet Take 1 tablet (100 mg total) by mouth every 8 hours. insulin NPH isoph U-100 human (HUMULIN N NPH INSULIN KWIKPEN) 100 unit/mL (3 mL) InPn Inject subcutaneously 12 units in the AM and 6 units in the PM. lancets (Fur and MaskUCH DELICA LANCETS) 33 gauge [facility] Use 1 strip as directed 4 times daily before meals and at bedtime. levoFLOXacin (LEVAQUIN) 500 MG tablet Take 0.5 tablets (250 mg total) by mouth at bedtime. lidocaine (LIDODERM) 5 % Place 1 patch onto the skin daily. Apply patch for 12 hours and then remove patch and leave off for 12 hours. melatonin 3 mg Tab Take 2 tablets (6 mg total) by mouth at bedtime. methocarbamoL (ROBAXIN) 500 MG tablet Take 1 tablet (500 mg total) by mouth 4 times daily before meals and at bedtime. metoprolol tartrate (LOPRESSOR) 25 MG tablet Take 1 tablet (25 mg total) by mouth 2 times a day. NIFEdipine (PROCARDIA-XL) 90 MG (OSM) 24 hr tablet Take 90 mg by mouth 2 times a day. ondansetron (ZOFRAN-ODT) 4 MG disintegrating tablet every 8 hours as needed. pantoprazole (PROTONIX) 40 MG tablet Take 1 tablet (40 mg total) by mouth daily. pen needle, diabetic 32 gauge x /32 Ndle Use as directed to inject insulin 4 times daily. polyethylene glycol (MIRALAX) 17 gram packet Take 17 g by mouth daily as needed (mild constipation (no BM for 24 hrs)). QUEtiapine (SEROQUEL) 25 MG tablet Take 0.5 tablets (12.5 mg total) by mouth at bedtime. Inpatient Meds: Scheduled: ??? EPINEPHrine 5 mcg/ml in NS 0.9% 10 mL IV ??? phenylephrine 100 mcg/mL in NS 0.9% 10 mL IV Continuous: PRN: Vital Signs Wt Readings from Last 3 Encounters: 07/14/20 (!) 268 lb (121.6 kg) 06/22/20 (!) 306 lb (138.8 kg) 06/07/20 (!) 251 lb 15.8 oz (114.3 kg) Ht Readings from Last 3 Encounters: 07/14/20 5' 7 (1.702 m) 06/08/20 5' 7 (1.702 m) 06/02/20 5' 7 (1.702 m) Temp Readings from Last 3 Encounters: 07/28/20 97.9 ??F (36.6 ??C) 07/21/20 98.2 ??F (36.8 ??C) (Oral) 07/20/20 97.8 ??F (36.6 ??C) (Oral) BP Readings from Last 3 Encounters: 07/28/20 (!) 168/93 07/21/20 138/84 07/20/20 155/75 Pulse Readings from Last 3 Encounters: 07/28/20 64 07/21/20 82 07/20/20 91 @LASTSAO2(3)@ Physical Exam Airway: Mallampati: II Mouth Opening: >2 FB TM distance: > = 3 FB Neck ROM: full Dental: Pulmonary: (-) no rhonchi, no wheezes and no PE. Cardiovascular: Rhythm: regular Rate: normal (-) murmur. Neuro/Musculoskeletal/Psych: Mental status: alert and oriented to person, place and time. Abdominal: Current OB Status: Other Findings: Laboratory Data Lab Results Component Value Date WBC 3.2 (L) 07/20/2020 HGB 7.9 (L) 07/20/2020 HCT 24.8 (L) 07/20/2020 MCV 89.2 07/20/2020 PLT 125 (L) 07/20/2020 No results found for: ABORH Lab Results Component Value Date GLUCOSE 88 07/19/2020 BUN 28 (H) 07/19/2020 CO2 25 07/19/2020 CREATININE 7.21 (H) 07/19/2020 K 4.4 07/19/2020 NA 139 07/19/2020 CL 102 07/19/2020 CALCIUM 8.8 07/19/2020 ALBUMIN 3.2 (L) 07/19/2020 PROT 5.9 (L) 07/19/2020 ALKPHOS 52 07/19/2020 ALT 3 (L) 07/19/2020 AST 7 (L) 07/19/2020 BILITOT 0.3 07/19/2020 Lab Results Component Value Date INR 1.1 07/19/2020 No results found for: PREGTESTUR, PREGSERUM, HCG, HCGQUANT Anesthesia Plan ASA 3 Current non-smoker Anesthesia Type: MAC. PONV Risk Factors: current non-smoker, (PIV, SDS postop. Patient is aware that they may be awake for parts of the procedure. We discussed general anesthesia as a backup plan. ) Anesthetic plan and risks discussed with patient. Plan, alternatives, and risks of anesthesia, including , have been explained to and discussed with the patient/legal guardian. By my assessment, the patient/legal guardian understands and agrees. Scenario presented in detail. Questions answered. Plan discussed with WINDOW TREATMENT INSTALLER and attending. documented in this encounter Plan of Treatment Upcoming Encounters Date Type Department Care Team (Late st Contact Info) Description 07/15/2024 9:00 AM EST Hospital Encounter [facility] Interventional Radiology [address] [place] [phone] Herve Carrillo MD [address] [place] [phone] documented as of this encounter Visit Diagnoses * Transfer of Care - Priya Robledo CRNA - 08/11/2020 11:53 AM EST Anesthesia Transfer of Care Note Patient: Aiden Stauffer . Procedure(s) Performed: Procedure(s): EGD Patient location: Endoscopy PACU Anesthesia type: MAC Airway Device on Arrival to PACU/ICU: Nasal Cannula IV Access: Peripheral Monitors Recommended to be Used During PACU/ICU: Standard Monitors Outstanding Issues to Address: None Level of Consciousness: awake and alert Post vital signs: Vitals: 08/11/20 1154 BP: 131/69 Pulse: 81 Temp: 98.4 ??F SpO2: RR: 98% 15 Complications: None Date 08/10/20 07 - 08/11/20 0659(Not Admitted) 08/11/20 07 - 08/12/20 0659 Shift 1298-6157 8904-2057 5931-4767 24 Hour Total 4958-8118 4753-2684 7846-0240 24 Hour Total INTAKE I.V. 150 150 Volume (mL) (lactated Ringers infusion) 150 150 Shift Total 150 150 OUTPUT Shift Total Weight (kg) documented in this encounter Administered Medications Inactive Administered Medications - up to 3 most recent administrations Medication Order MAR Action Action Date Dose Rate Site lactated Ringers infusion Continuous - One Step Medications Only, Starting on Mon08/11/20 at 1134, Anesthesia Intra-op New Bag 08/11/2020 11:34 AM EST lidocaine (PF) 20 mg/mL (2 %) Soln Intravenous, PRN - One Step Medication Only, Starting on Mon08/11/20 at 1141, Anesthesia Intra-op Given 08/11/2020 11:41 AM EST 100 mg propofol (DIPRIVAN) infusion 10 mg/mL Continuous - One Step Medications Only, Starting on Mon08/11/20 at 1138, Anesthesia Intra-op Rate/Dose Change 08/11/2020 11:41 AM EST 100 mcg/kg/min 73 mL/hr New Bag 08/11/2020 11:38 AM EST 120 mcg/kg/min 87.6 mL/ hr propofol 10 mg/ml (DIPRIVAN) injection PRN - One Step Medication Only, Starting on Mon08/11/20 at 1138, Anesthesia Intra-op Given 08/11/2020 11:38 AM EST 3 0 mg documented in this encounter Additional Health Concerns Assessment Noted Time PHQ-9 Depression Total Score: 0 12/06/19 18 3:00 PM EDT documented as of this encounter Care Teams It Compliance Manager Relationship Specialty Start Date End Date Edgar Fournier MD [address] [place] [address] [place] [address] PCP - General 08/18/17 06/23/21 Maile Valles, RN Txp Post Coordinator Transplant Hepatology 11/07/17 Jack Ordoñez MD [address] [place] [address] Consulting Physician Transplant Hepatology 01/05/18 Estephania Sharif, DarrianD Pharmacist Pharmacist 11/11/19 documented as of this encounter
--- OUTSIDE RECORDS SUMMARY | 2024-07-12 12:37 | XMS_ITS | Encounter Summary ---
Author Organization [facility] Address [facility] [place] [place] [address] Care Team Providers Care Checker Cashier Name Role Phone Edgar Fournier MD Primary Care Provider [phone] Maile Valles RN Unavailable Unavail able Jack Ordoñez MD Unavailable [phone] Estephania Sharif PharmD Unavailable Christine vailable [...] release of HIV test results or diagnoses. [id number] Health Reason for Visit * Auth/Cert Specialty Diagnoses / Procedures Referred By Contact Referred To Contact Gastroenterology Diagnoses luz esoophagitis, Procedures EGD 11671 (CPT??) - [place] ESOPHAGOGASTRODUODENOSCOPY TRANSORAL DIAGNOSTIC 77021 (CPT??) - [place] EGD TRANSORAL BIOPSY SINGLE/MULTIPLE [facility] ENDOSCOPY [address] [place] [address] Phone: tel:[phone] Referral ID Status Reason Start Date Expiration Date Visits Re quested Visits Authorized [id number] 1 1 Encounter Details Date Type Department Care Team (Latest Contact Info) Description 08/11/2020 10:33 AM EST - 08/11/2020 12:49 PM EST Hospital Encounter [facility] ENDOSCOPY [address] [place] [id number] Tej Sullivan MD [address] [place] [address] Preoperative testing; Candidal esophagitis ([facility]) Discharge Disposition: Home or Self [...] Sign Reading Time Taken Comments Blood Pressure 142/87 08/11/2020 12:15 PM EST Pulse 93 08/11/2020 12:00 PM EST Temperature 36.9 ??C (98.4 ??F) 08/11/2020 12:[address] Respiratory Rate 16 08/11/2020 12:00 PM EST Oxygen Saturation 95% 08/11/2020 12:15 PM EST Inhaled Oxygen Concentration 95% 08/11/2020 1 2:15 PM EST Weight - - Height - - Body Mass Index - - documented in this encounter Discharge Instructions * Discharge Instructions* Poornima Juárez RN - 08/11/2020 12:03 PM EST [facility] END[facility] INSTRUCTION/RELEASE FORMS Date: 08/11/2020 Procedure: Procedure(s): EGD IF YOU DEVELOP EXCESSIVE BLEEDING, UNCONTROLLED PAIN OR SHORTNESS OF BREATH, GO TO THE EMERGENCY DEPARTMENT FOR AN EXAMINATION. IF YOU DEVELOP CHILLS, FEVER (greater than 100.5) OR HAVE CONCERNS ABOUT YOUR RECOVERY, CALL Dr. Sullivan AT [phone]. 1. You may experience lightheadedness and nausea. Rest today; no strenuous activity. 2. DO NOT: ?? Drink alcoholic beverages today. ?? Make serious financial or legal decisions today. ?? Operate automobiles, heavy machinery or use any appliances today. 3. Diet: ?? Resume your diet as tolerated or recommended by your primary care provider. 4. Medications: ?? The treatment you received today does not change your current medications. ?? New/revised prescriptions given to patient?: No. 5. Side Effects You May Experience: ?? Sore throat. ?? Cramping, gas, bloating, belching. 6. Additional: ?? Follow up with Dr. Sullivan for biopsy results. ?? Follow up with PCP for routine appointment/further testing. All Patient Belongings Have Been Returned: (patient [...] 03/18/20 22 blood-glucose meter (ONETOUCH VERIO SYSTEM) [facility] Use as instructed. 1 each 8 03/18/20 [...] 100 MG capsuleIndications: Other osteonecrosis, left femur ([facility]) Take 1 capsule (100 mg total) by [...] 22 lancets (ONETOUCH DELICA LANCETS) 33 gauge [facility] Use 1 strip as directed 4 times [...] 11/01/19 22 documented as of this encounter H&P Notes * Eris Nguyen MD - 08/11/2020 11:18 AM EST [facility] PRE-SEDATION ASSESSMENT, HISTORY & PHYSICAL Date: 08/11/2020 Leoncio Rollins Jr. is a 45 y.o. year old male Pre-Procedure Diagnosis/Procedure Indication: Esophagitis Planned Procedure: EGD NPO for solids >8 [...] ??? Sleep apnea ??? Vitamin D deficiency Difficult intubation Unanswered [...] (CMS Dx) ??? Vertebral osteomyelitis (CMS Dx) Past Surgical History Past Surgical History: Procedure [...] TIPS PROCEDURE 10/2016 ??? TIPS Revision 04/2017 Medications Prior to Admission medications Medication Sig Start Date End Date Taking? Authorizing Provider aspirin 81 MG chewable tablet Chew 1 tablet (81 mg total) by mouth daily with breakfast. 10/17/17 Bere Feng CNP blood sugar diagnostic Strp Use to test blood sugar up to 4 times a day. Diagnosis for use: E 9.65.For use with One Touch Verio meters. 10/18/17 Bere Feng CNP blood-glucose meter (ONETOUCH VERIO SYSTEM) [facility] Use as instructed. 10/18/17 Bere Feng CNP carBAMazepine (TEGRETOL) 200 mg tablet Take 200 mg by mouth at bedtime. Historical Provider, cloNIDine HCL (CATAPRES) 0.1 MG tablet Take 1 tablet (0.1 mg total) by mouth 2 times a day. 07/20/20Addison Viveros MD cycloSPORINE modified (NEORAL) 25 MG capsule Take 4 capsules (100 mg total) by mouth 2 times a day.07/06/20 Jack Ordoñez MD doxazosin (CARDURA) 8 MG tablet 8 mg at bedtime. 05/12/18 Historical Provider, entecavir (BARACLUDE) 0.5 MG tablet Take 1 tablet (0.5 mg total) by mouth every 7 days. 07/10/20 Jack Ordoñez MD ergocalciferol (VITAMIN D2) 50,000 unit capsule Take 50,000 Units by mouth every Monday, ,and Monday. Twice a week Historical Provider, fluticasone propionate (FLONASE) 50 mcg/actuation nasal spray Use into each nostril. 11/12/19 Historical Provider, gabapentin (NEURONTIN) 100 MG capsule Take 1 capsule (100 mg total) by mouth 2 times a day. 06/25/20 Jake Zavala MD hydrALAZINE (APRESOLINE) 100 MG tablet Take 1 tablet (100 mg total) by mouth every 8 hours. 06/25/20 Jake Zavala MD insulin NPH isoph U-100 human (HUMULIN N NPH INSULIN KWIKPEN) 100 unit/mL (3 mL) InPn Inject subcutaneously 12 units in the AM and 6 units in the PM. 06/25/20 Jake Zavala MD lancets (ONETOUCH DELICA LANCETS) 33 gauge Misc Use 1 strip as directed 4 times daily before meals and at bedtime. 10/18/17 Bere Feng CNP levoFLOXacin (LEVAQUIN) 500 MG tablet Take 0.5 tablets (250 mg total) by mouth at bedtime. 07/21/20 Addison Viveros MD lidocaine (LIDODERM) 5 % Place 1 patch onto the skin daily. Apply patch for 12 hours and then remove patch and leave off for 12 hours. 07/20/20 Addison Viveros MD melatonin 3 mg Tab Take 2 tablets (6 mg total) by mouth at bedtime. 06/25/20 Jake Zavala MD methocarbamoL (ROBAXIN) 500 MG tablet Take 1 tablet (500 mg total) by mouth 4 times daily before meals and at bedtime. 06/25/20 Jake Zavala MD metoprolol tartrate (LOPRESSOR) 25 MG tablet Take 1 tablet (25 mg total) by mouth 2 times a day. 06/25/20 Jake Zavala MD NIFEdipine (PROCARDIA-XL) 90 MG (OSM) 24 hr tablet Take 90 mg by mouth 2 times a day. 04/23/18 Historical Provider, ondansetron (ZOFRAN-ODT) 4 MG disintegrating tablet every 8 hours as needed. 04/11/18 Historical Provider, pantoprazole (PROTONIX) 40 MG tablet Take 1 tablet (40 mg total) by mouth daily. 06/25/20 Jake Zavala MD pen needle, diabetic 32 gauge x Ndle Use as directed to inject insulin 4 times daily. 10/16/17 Bere Feng CNP polyethylene glycol (MIRALAX) 17 gram packet Take 17 g by mouth daily as needed (mild constipation (no BM for 24 hrs)). 06/25/20 Jake Zavala MD QUEtiapine (SEROQUEL) 25 MG tablet Take 0.5 tablets (12.5 mg total) by mouth at bedtime. 06/25/20 Jake Zavala MD Allergies: Codeine Sulfate Codeine Abbreviated Review of Systems (ROS) Functional Capacity: AQUINO ACTIVITY SCALE: 1 - Eating, getting dressed; working at a desk. Chest Pain: no Shortness of Breath/Dyspnea or Exertion: no Recent URI: no Airway, ASA Score & Sedation Specific History Concerns Airway: Mallampati:: III ASA Score: ASA: III -patient with moderate systematic disease with functional limitations Sedation specific history concerns: none of the above This patient was reevaluated immediately prior to sedation administration. Focused Physical Exam: Height ; Weight ; BMI There is no height or weight on file to calculate BMI. Vitals: 08/11/20 1056 BP: 152/85 Pulse: 86 Temp: 97.8 ??F (36.6 ??C) SpO2: 98% Neuro: No focal deficits Cardiovascular: RRR, no murmurs or rubs Respiratory: CTAB, no wheezes or crackles Sedation Plan: MAC Antibiotic prophylaxis is not indicated. Cosigned by Tej Sullivan MD at 08/11/2020 11:29 AM EST Associated attestation - Tej Sullivan MD - 08/11/2020 11:29 AM EST Attending Physician's Note: I have personally seen and examined the patient, reviewed the chart, imaging and labs and have discussed the case with , agree with his note and confirm it. Tej Sullivan MD GI and Hepatology Staff documented in this encounter Procedure Notes * Tej Sullivan MD - 08/11/2020 11:35 AM EST [id number] Procedure Date: 08/11/2020 11:35 AM Patient Name: Leoncio Rollins Date of : 1975 Admit Type: Ambulatory Age: 45 Gender: Male Note Status: Finalized Attending MD: Tej Sullivan MD Procedure: Upper GI endoscopy Indications: Follow-up of reflux esophagitis Patient Profile: 45 yo male with OLT in 2018 who presents for follow up of esophagitis. He had an EGD in May 2020 that revealed abnormal mucosa just proximal to the GE junction concerning for adenomatous changes - biopsies came back with inflammation. He has been taking his PPI daily since then, but taking it before bed, and not necessarily on an empty stomach. Providers: Tej Sullivan MD, Eris Nguyen (Fellow) Referring MD: Medicines: Monitored Anesthesia Care Complications: No immediate [...] and proposed procedure were verified by the physician and the nurse in the procedure room. Mental Status Examination: alert and oriented. Airway Examination: normal oropharyngeal airway and neck mobility. Respiratory Examination: clear to auscultation. CV Examination: normal. Prophylactic Antibiotics: The patient does not require prophylactic antibiotics. Prior Anticoagulants: The patient has taken no previous anticoagulant or antiplatelet agents. ASA Grade Assessment: [...] The patient tolerated the procedure well. Findings: LA Grade A (one or more mucosal breaks less than 5 mm, not extending between tops of 2 mucosal folds) esophagitis with no bleeding was found in the lower third of the esophagus. Scattered mild inflammation characterized by adherent blood, erosions and erythema was found on the greater curvature of the stomach. Biopsies were taken with a cold forceps for Helicobacter pylori testing. Localized mild inflammation characterized by congestion (edema) and erythema was found in the duodenal bulb. Impression: - LA Grade A reflux esophagitis. Significant improvement in abnormal findings from his prior endoscopy. - Gastritis. Biopsied. - Duodenitis. Recommendation: - Patient has a contact number available for emergencies. The signs and symptoms of potential delayed complications were discussed with the patient. Return to normal activities tomorrow. Written discharge instructions were provided to the patient. - Resume previous diet. - Continue present medications. Continue pantoprazole 40mg daily. 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 - Await pathology results. Treat h pylori if positive. - No repeat upper endoscopy. Procedure Code(s): --- Professional --- 53286, GC, Esophagogastroduodenoscopy, flexible, transoral; with biopsy, single or multiple Diagnosis Code(s): --- Professional --- K21.0, Gastro-esophageal reflux disease with esophagitis K29.70, Gastritis, unspecified, without bleeding K29.80, Duodenitis without bleeding CPT copyright 2019 [employer]. All rights reserved. The codes documented in this report are preliminary and upon service desk specialist review may be revised to meet current compliance requirements. Attending Participation: I was present for the entire viewing portion, including introduction and removal of the scope. Tej Sullivan MD Tej Sullivan MD 08/11/2020 12:54:10 PM This report has been signed electronically.MD Eris Rosa MD Eris Nguyen, 08/11/2020 12:14:35 PM Total Procedure Duration Time 0 hours 5 minutes 15 seconds Scope In: 11:40:24 AM Scope Out: 11:45:[address] [place] [id number] documented in this encounter Plan of Treatment Upcoming Encounters Date Type Department Care Team (Late st Contact Info) Description 07/15/2024 9:00 AM EST Hospital Encounter [facility] Interventional Radiology [address] [place] [address] Herve Carrillo MD [address] [facility] [address] [facility] [place] [address] documented as of this encounter Procedures Procedure Name Priority Date/Time Associated Diagnosis Comments DILATATION Routine 08/11/2020 11:35 AM EST EGD EGD/Sm Bowel 08/11/2020 11:34 AM EST Esophageal candidiasis ([facility]) Esophagitis Special Needs confirm to Dr trejo, covid test 08/09/20, needs biopsies POTASSIUM, BLOOD GAS STAT 08/11/2020 11:20 AM EST POC GLU MONITORING DEVICE Routine 08/11/2020 11:20 AM EST SURGICAL PATHOLOGY EXAM Routine 08/11/2020 12:00 AM EST documented in this encounter Results * DILATATION (08/11/2020 11:35 AM EST) 08/11/2020 11:3 5 AM EST Narrative [facility] - 08/11/2020 12:54 PM EST [id number] Procedure Date: 08/11/2020 11:35 AM ?? Patient Name: Leoncio Rollins ? Date of : 1975 ?Admit Type: Ambulatory Age: 45 ? Gender: Male Note Status: Finalized ?Attending MD: Tej Sullivan MD Procedure: ? Upper GI endoscopy Indications: ? Follow-up of reflux esophagitis Patient Profile: ? 45 yo male with OLT in 2017 who presents for follow up ? of esophagitis. He had an EGD in May 2020 that ? revealed abnormal mucosa just proximal to the GE ? junction concerning for adenomatous changes - biopsies ? came back with inflammation. He has been taking his PPI ? daily since then, but taking it before bed, and not ? necessarily on an empty stomach. Providers: ? Tej Sullivan MD, Eris Nguyen (Fellow) Referring MD: ? Medicines: ? Monitored Anesthesia Care Complications: ? [...] answered and informed consent was obtained. Patient ? identification and proposed procedure were verified by ? the physician and the nurse in the procedure room. ? Mental Status Examination: alert and oriented. Airway ? Examination: normal oropharyngeal airway and neck ? mobility. Respiratory Examination: clear to ? auscultation. CV Examination: normal. Prophylactic ? Antibiotics: The patient does not require prophylactic ? antibiotics. Prior Anticoagulants: The patient has taken ? no previous anticoagulant or antiplatelet agents. ASA ? Grade Assessment: III - A patient with severe systemic ? disease. After reviewing the risks and benefits, the ? patient was deemed in satisfactory condition to undergo ? the procedure. The anesthesia plan was to use monitored ? anesthesia care (MAC). Immediately prior to ? administration of medications, the patient was ? re-assessed for adequacy to receive sedatives. The heart ? rate, respiratory rate, oxygen saturations, blood ? pressure, adequacy of pulmonary ventilation, and ? [...] ? the procedure well. ? Findings: ? LA Grade A (one or more mucosal breaks less than 5 mm, not extending ? between tops of 2 mucosal folds) esophagitis with no bleeding was found ? in the lower third of the esophagus. ? Scattered mild inflammation characterized by adherent blood, erosions ? and erythema was found on the greater curvature of the stomach. Biopsies ? were taken with a cold forceps for Helicobacter pylori testing. ? Localized mild inflammation characterized by congestion (edema) and ? erythema was found in the duodenal bulb. ? Impression: ?- LA Grade A reflux esophagitis. Significant improvement ? in abnormal findings from his prior endoscopy. ? - Gastritis. Biopsied. ? - Duodenitis. Recommendation: ?- Patient has a contact number available for ? emergencies. The signs and symptoms of potential delayed ? complications were discussed with the patient. Return to ? normal activities tomorrow. Written discharge ? instructions were provided to the patient. ? - Resume previous diet. ? - Continue present medications. Continue pantoprazole ? 40mg daily. 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 ? - Await pathology results. Treat h pylori if positive. ? - No repeat upper endoscopy. ? Procedure Code(s): ?? --- Professional --- ? 68309, GC, Esophagogastroduodenoscopy, flexible, ? transoral; with biopsy, single or multiple Diagnosis Code(s): ?? --- Professional --- ? K21.0, Gastro-esophageal reflux disease with esophagitis ? K29.70, Gastritis, unspecified, without bleeding ? K29.80, Duodenitis without bleeding CPT copyright 2019 [employer]. All rights reserved. The codes documented in this report are preliminary and upon service desk specialist review may be revised to meet current compliance requirements. Attending Participation: ? I was present for the entire viewing portion, including introduction and ? removal of the scope. ? Tej Sullivan MD Tej Sullivan MD 08/11/2020 12:54:10 PM This report has been signed electronically.MD Eris Rosa MD Eris Nguyen, 08/11/2020 12:14:35 PM Total Procedure Duration Time 0 hours 5 minutes 15 seconds Scope In: 11:40:24 AM Scope Out: 11:45:39 AM ? [address] [place], [place] [address] us Attending Provider Unknown PROCEDURE/MINOR SURGI NI ORDERABLES Final Result [facility] [address] [facility] [place] [address] * POC Glucose Monitoring Device (08/11/2020 11:20 AM EST) POC Glucose Monitoring Device 88 70 - 100 mg/dL 08/11/2020 11:20 AM EST [facility] Blood specimen (specimen) 08/11/2020 11:20 AM EST 08/11/2020 11:20 AM EST Tej Sullivan MD POINT OF CARE TEST ORDERABLES Fi nal Result Performing Organization Address City/[facility]/ZIP Co de Phone Number [facility] [address] * Potassium, Blood Gas (08/11/2020 11:20 AM EST) Potassium, Blood Gas 5.0 3.5 - 5.3 mEq/L 08/11/2020 11:25 AM EST [facility] Arterial blood specimen (specimen) 08/11/2020 11:20 AM EST 08/11/2020 11:24 AM EST Manuela Richardson MD LAB BLOOD ORDERABLES Final Resul t Performing Organization Address City/[facility] Co de Phone Number [facility] [address] * Surgical Pathology Exam (08/11/2020 12:00 AM EST) 08/11/2020 08/11/2020 Narrative [facility] - 08/11/2020 12:00 AM EST CASE: [id number] PATIENT: LEONCIO ROLLINS Clinical History: ?? EGD Pre-Operative Diagnosis: luz esophagitis Post-Operative Diagnosis: ? mild gastritis, duodenitis, small hiatal hernia Specimen(s) Submitted: ?? A. gastric bx to R/O H pylori CPT Code(s): ?? 13932 X 1; 07670 X 1 Additional Information: FINAL DIAGNOSIS: Stomach, biopsy: - Mild inactive chronic gastritis. - Negative for H pylori both ??HE and on immunostain. - Negative for intestinal metaplasia, dysplasia or malignancy. Shayne Armendariz MD (Resident)/buster Gross Description: Received in formalin, labeled with the patient's name Leoncio Rollins and gastric bxs to rule out H. pylori are multiple gaytan tissue fragments ranging from 0.1 to 0.5 cm, which are filtered into a biopsy bag and entirely submitted in cassette [id number] with HP is written on the side of the cassette. ??(Amrita Elliott, PA/ab) Microscopic Description: Two HE and one immunostaining for H pylori stained slides were examined. Shayne Armendariz MD (Resident)/buster Hernandez, the attending pathologist, have personally reviewed all prosector/resident work and pathology slides to determine final diagnosis. Some tests use analyte-specific reagents (ASRs). These tests were developed and their performance characteristics determined by [facility]. They have not been [...] family 6, HPV family 16, SIS HER2/carlos. Control Materials Reacted Appropriately. Final Diagnosis performed by AYLIN MOORE MD Pathologist Electronically signed 08/12/2020 03:51:34 PM ?? The Pathologist signing this report is located at [facility], [address] [place] [address], [place], [place], [facility], , CLIA ID: [id number] Tej Sullivan MD PATHOLOGY/CYTOLOGY ORDERABLES Fi nal Result [facility] documented in this encounter Visit Diagnoses Diagnosis Preoperative testing Unspecified pre-operative examination Candidal esophagitis (CMS-HCC) Candidiasis of the esophagus documented in this encounter Administered Medications Inactive Administered Medications - up to 3 most recent administrations Medication Order MAR Action Action Date Dose Rate Site dextrose 50 % in water (D50W) iv Syrg 25 mL 25 mL, Intravenous, Every 15 min PRN, for glucose < 70 and alert but can not be corrected, orally or via feeding tube, Starting on e 08/11/20 at 1059, Recheck blood sugar in 15 minutes and repeat treatment if glucose still < 70., Pre-op dextrose 50 % in water (D50W) iv Syrg 50 mL 50 mL, Intravenous, Every 15 min PRN, for glucose < 70 and not alert, Starting on e 08/11/20 at 1059, Recheck glucose in 15 minutes and repeat treatment if glucose still < 70., Pre-op sodium chloride 0.9 % infusion 50 mL/hr, Intravenous, Continuous, Starting on e 08/11/20 at 1130, Pre-procedure(GI)Indications:Preoperative testing,Candidal esophagitis ([facility]) documented in this encounter Active and Recently Administered Medications Times are shown in EST. Continuous Medication Order 08/09/2020 08/10/2020 08/11/2020 sodium chloride 0.9 % infusion 50 mL/hr, Intravenous, Continuous, Starting on Mon08/11/20 at 1130, Pre-procedure(GI) 1130 (Due) PRN Medication Order 08/09/2020 08/10/2020 08/11/2020 dextrose 50 % in water (D50W) iv Syrg 25 mL(Linked Group 1) 25 mL, Intravenous, Every 15 min PRN, for glucose < 70 and alert but can not be corrected, orally or via feeding tube, Starting on 08/11/20 at 1059, Recheck blood sugar in 15 minutes and repeat treatment if glucose still < 70., Pre-op dextrose 50 % in water (D50W) iv Syrg 50 mL(Linked Group 1) 50 mL, Intravenous, Every 15 min PRN, for glucose < 70 and not alert, Starting on 08/11/20 at 1059, Recheck glucose in 15 minutes and repeat treatment if glucose still < 70., Pre-op glucose chewable tablet 12 g 12 g, Oral, Every 15 min PRN, Low blood sugar, for glucose 50-70 mg/dL, Starting on 08/11/20 at 1059, Recheck glucose in 15 minutes and if glucose still < 70, repeat treatment. DO NOT ADMINISTER VIA FEEDING TUBE, Pre-op No Frequency Medication Order 08/09/2020 08/10/2020 08/11/2020 EPINEPHrine 5 mcg/ml in NS 0.9% 10 mL IV 5 mcg/ml syringe Starting on Mon08/11/20 at 0716, For 1 dose, Created by cabinet override IV PUSH PRESSOR 0730 (Due) phenylephrine 100 mcg/mL in NS 0.9% 10 mL IV 100 mcg/ml syringe Starting on Mon08/11/20 at 0715, For 1 dose, Created by cabinet override IV PUSH PRESSOR 0730 (Due) Linked Groups Order Group 1: dextrose 50 % in water (D50W) iv Syrg 25 mLJump to med 25 mL, Intravenous, Every 15 min PRN, for glucose < 70 and alert but can not be corrected, orally or via feeding tube, Starting on Mon08/11/20 at 1059, Recheck blood sugar in 15 minutes and repeat treatment if glucose still < 70., Pre-op Or dextrose 50 % in water (D50W) iv Syrg 50 mLJump to med 50 mL, Intravenous, Every 15 min PRN, for glucose < 70 and not alert, Starting on Mon08/11/20 at 1059, Recheck glucose in 15 minutes and repeat treatment if glucose still < 70., Pre-op documented in this encounter Additional Health Concerns Assessment Noted Time PHQ-9 Depression Total Score: 0 12/06/19 18 3:00 PM EDT documented as of this encounter Care Teams Checker Cashier Relationship Specialty Start Date End Date Edgar Fournier MD [address] [place] [address] [place] [address] PCP - General 08/18/17 06/23/21 Maile Valles, JANA Txp Post Coordinator Transplant Hepatology 11/07/17 Jack Ordoñez MD [address] [place] [address] Consulting Physician Transplant Hepatology 01/05/18 Estephania Sharif, DarrianD Pharmacist Pharmacist 11/11/19 documented as of this encounter
--- OUTSIDE RECORDS SUMMARY | 2024-07-12 12:37 | XMS_ITS | Encounter Summary ---
Author Organization [facility] Address [address] [place] [address] Care Team Providers Care Cut Out Worker Name Role Phone Edgar Fournier MD Primary Care Provider [phone] Maile Valles RN Unavailable Unavail able Jack Ordoñez MD Unavailable [phone] Estephania Sharif PharmD Unavailable Christine vailable [...] release of HIV test results or diagnoses. [id number] Health Encounter Details Date Type Department Care Team (Late st Contact Info) Description 08/20/2020 Chart Note [facility] Liver Transplant at [facility] [address] [facility] [address] [place] [address] Anne Whitt MA Lab Draw 08/18/2020 @1622 Social History Tobacco Use Types Packs/Day Years [...] Progress Notes * Anne Whitt MA - 08/20/2020 10:41 AM EST Lab Draw 08/18/2020 @1622 ?? Sed rate 54 ?? C-Reactive Protein (quant) 3.2 documented in this encounter Plan of Treatment Upcoming Encounters Date Type Department Care Team (Late st Contact Info) Description 07/15/2024 9:00 AM EST Hospital Encounter [facility] Interventional Radiology [address] [place] [address] Herve Carrillo MD [address] [facility] [address] [place] [address] documented as of this encounter Procedures Procedure Name Priority Date/Time Associated Diagnosis Comments HEPATIC FUNCTION PANEL Routine 08/19/2020 4:14 PM EST CYCLOSPORINE LEVEL Routine 08/19/2020 4: 14 PM EST CBC AND DIFFERENTIAL Routine 08/19/2020 4:14 PM EST RENAL FUNCTION PANEL W/O EGFR Routine 08/19/2020 4:14 PM EST documented in this encounter Results * Cyclosporine level (08/19/2020 4:14 PM EST) Cyclosporine, Blood 39 Whole blood specimen (specimen) Result [facility] Provider MD LAB BLOOD ORDERABLES Yoselin l Result * (ABNORMAL) Renal Function Panel w/o EGFR (08/19/2020 4:14 PM EST) [facility] BUN/Creatinine Ratio 4.1 Glucose 115 mg/dL BUN 17 4 - 21 mg/dL CO2 32(A) 13 - 22 mmol/L Creatinine 4.1(A) 0.6 - 1.3 mg/dL Potassium 3.6 3.4 - 5.3 mmol/L Sodium 142 137 - 147 mmol/L Chloride 100 99 - 108 mmol/L Albumin 3.4 Phosphorus 3.7 2.5 - 4.9 mg/dL Calcium 9.2 8.7 - 10.7 mg/dL EGFR 17 mg/dL Blood specimen (specimen) Result [facility] MD LAB BLOOD ORDERABLES Yoselin l Result * (ABNORMAL) CBC and differential (08/19/2020 4:14 PM EST) [facility] Hemoglobin 8.3(A) 13.5 - 17.5 g/dL Hematocrit 26.4(A) 41 - 53 % RDW 15.9(A) 11.5 - 14.5 % Lymphocytes Absolute 1.7 /??L Monocytes Absolute 0.34 /??L Eosinophils Absolute 0.13 /??L Basophils Absolute 0 /??L Neutrophils Relative 47.2 46 - 78 % Lymphocytes Relative 40.4 18 - 52 % Monocytes Relative 8.1 3 - 10 % Eosinophils Relative 3.1 0 - 6 % Basophils Relative 0 0 - 3 % Neutrophils Absolute 1.99 /??L MCH 29.2 26.0 - 34.0 pg MCHC 31.4 30 - 37 g/dL MCV 93 82.0 - 108.0 fL Platelets 184 K/??L RBC 2.84(A) 4.50 - 5.90 10^6/??L WBC 4.2 10^3/mL Blood specimen (specimen) Result [facility] MD LAB BLOOD ORDERABLES Yoselin l Result * Hepatic Function Panel (08/19/2020 4:14 PM EST) Alkaline Phosphatase 86 U/L ALT 12 U/L AST 10 U/L Total Bilirubin 0.7 0.1 - 1.4 mg/dL Bilirubin, Direct 0.1 0.01 - 0.4 mg/dL Total Protein 7.8 6.4 - 8.2 g/dL Plasma specimen (specimen) us Historical Provider LAB BLOOD ORDERABLES Yoselin l Result documented in this encounter Visit Diagnoses Not on filedocumented in this encounter Additional Health Concerns Assessment Noted Time PHQ-9 Depression Total Score: 0 12/06/19 18 3:00 PM EDT documented as of this encounter Care Teams Cut Out Worker Relationship Specialty Start Date End Date Edgar Fournier MD [address] [place] [address] [place] [address] PCP - General 08/18/17 06/23/21 Maile Valles, JANA Txp Post Coordinator Transplant Hepatology 11/07/17 Jack Ordoñez MD [facility] [place] [address] Consulting Physician Transplant Hepatology 01/05/18 Estephania Sharif, DarrianD Pharmacist Pharmacist 11/11/19 documented as of this encounter
--- OUTSIDE RECORDS SUMMARY | 2024-07-12 12:37 | XMS_ITS | Encounter Summary ---
Author Organization [facility] Address [address] [place] [address] Care Team Providers Care Leather Grainer Name Role Phone Edgar Fournier MD Primary Care Provider [phone] Maile Valles RN Unavailable Unavail able Jack Ordoñez MD Unavailable [phone] Estephania Sharif PharmD Unavailable Christine vailable [...] release of HIV test results or diagnoses. [id number] Reason for Visit * Reason Comments Results Encounter Details Date Type Department Care Team (Late st Contact Info) Description 08/24/[address] [facility] Center I.D.C. at [facility] [address] [facility] [address] [place] [address] Dav Johnson MD [address] [facility] [address] [place] [address] Results Social History Tobacco Use Types Packs/Day [...] encounter Miscellaneous Notes * Telephone Encounter - Che Ingram RN - 08/24/2020 3:08 PM EST Spoke with Mr. Stauffer, passed on Dr. Johnson's message. Shingles vaccine is indicated for people over 50. States good understanding. * Telephone Encounter - Dav Johnson MD - 08/24/2020 2:49 PM EST Abx continuing at least until seen in clinic, 09/08 per my note. He is too young for the shingles vaccine. Only indicated for persons age >50. * Telephone Encounter - Cecelia Holland RN - 08/24/2020 2:10 PM EST Pt returned phone call. I advised him of the above. Pt now has questions regarding getting the shingles vaccine and states that his PCP does not have is available. * Telephone Encounter - Che Ingram RN - 08/24/2020 1:39 PM EST Voice mail not set up, unable to leave message. Mr. Stauffer is having back pain when sitting upright. Lab results were reviewed with Mr. Stauffer by Triage Nurse. Mr. Stauffer is asking when his antibiotics will end, according to Dr. Johnson's note tentative end date is 09/08/20. Mr. Stauffer has an appointment with Dr. Johnson 09/03/20. * Telephone Encounter - Erica Wood RN - 08/24/2020 12:33 PM EST Pt calling regarding lab results from 08/19. He would like to know if the infection in his back is gone. Pt notified of WBC count; advised to keep appt scheduled 09/03 to discuss with provider. Additionally, he would like to know when he will be able to stop abx. He does report continued pain to his back when sitting upright, but denies when lying flat. Advised to call back with worsening sx. Pt can be reached at: [phone] documented in this encounter Plan of Treatment Upcoming Encounters Date Type Department Care Team (Late st Contact Info) Description 07/15/2024 9:00 AM EST Hospital Encounter [facility] Interventional Radiology [address] [place] [phone] Herve Carrillo MD [address] [facility] [address] [facility] [place] [phone] documented as of this encounter Visit Diagnoses Not on filedocumented in this encounter Additional Health Concerns Assessment Noted Time PHQ-9 Depression Total Score: 0 12/06/19 18 3:00 PM EDT documented as of this encounter Care Teams Leather Grainer Relationship Specialty Start Date End Date Edgar Fournier MD [address] [place] [address] [place] [address] PCP - General 08/18/17 06/23/21 Maile Valles, JANA Txp Post Coordinator Transplant Hepatology 11/07/17 Jack Ordoñez MD [address] [place] [phone] Consulting Physician Transplant Hepatology 01/05/18 Estephania Sharif, PharmD Pharmacist Pharmacist 11/11/19 documented as of this encounter
--- OUTSIDE RECORDS SUMMARY | 2024-07-12 12:37 | XMS_ITS | Encounter Summary ---
Author Organization [facility] Address [address] [place] [address] Care Team Providers Care Remote Recruiter Name Role Phone Edgar Fournier MD Primary Care Provider [phone] Maile Valles RN Unavailable Unavail able Jack Ordoñez MD Unavailable [phone] Estephania Sharif PharmD Unavailable Christine vailable [...] release of HIV test results or diagnoses. [id number] Encounter Details Date Type Department Care Team (Latest Contact Info) Description 07/21/2020 Travel Social History Tobacco Use Types Packs/Day [...] Encounter [facility] Interventional Radiology [address] [place] [phone] Herve Carrillo MD [address] [facility] [address] [place] [phone] documented as of this encounter Visit Diagnoses Not on filedocumented in this encounter Additional Health Concerns Assessment Noted Time PHQ-9 Depression Total Score: 0 12/06/19 18 3:00 PM EDT documented as of this encounter Care Teams Remote Recruiter Relationship Specialty Start Date End Date Edgar Fournier MD [address] [place] [address] [place] [address] PCP - General 08/18/17 06/23/21 Maile Valles, JANA Txp Post Coordinator Transplant Hepatology 11/07/17 Jack Ordoñez MD [address] [place] [phone] Consulting Physician Transplant Hepatology 01/05/18 Estephania Sharif, DarrianD Pharmacist Pharmacist 11/11/19 documented as of this encounter
--- OUTSIDE RECORDS SUMMARY | 2024-07-12 12:37 | XMS_ITS | Encounter Summary ---
Author Organization [facility] Address [address] [place] [address] Care Team Providers Care Clinical Product Specialist Name Role Phone Edgar Fournier MD Primary Care Provider [phone] Maile Valles RN Unavailable Unavail able Jack Ordoñez MD Unavailable [phone] Estephania Sharif PharmD Unavailable Christine vailable [...] release of HIV test results or diagnoses. [id number] Reason for Referral * Imaging/Cardiovascular Scan (Routine) - Closed Specialty Diagnoses / Procedures Referred By Contac t Referred To Contact Radiology Diagnoses Vertebral osteomyelitis ([facility]-HCC) Procedures MRI Lumbar spine WO contrast Dav Johnson MD [address] [facility] [address] [place] [address] Phone: tel: fax: Referral ID Status Reason Start Date Expiration Date Visits Re quested Visits Authorized [id number] Closed 09/03/2020 03/02/2021 1 1 Reason for Visit * Reason Comments ID Consult Visit (New) Osteomyelitis Encounter Details Date Type Department Care Team (Late st Contact Info) Description 09/03/2020 11:20 AM EST Office Visit [facility] I.D.C. at [facility] [address] [facility] [address] [place] [address] Dav Johnson MD [address] [place] [address] Vertebral osteomyelitis (CMS-HCC) (Primary Dx) Social History [...] Sign Reading Time Taken Comments Blood Pressure 133/72 09/03/2020 11:11 AM EST Pulse 75 09/03/2020 11:11 AM EST Temperature 36.7 ??C (98 ??F) 09/03/2020 11:11 AM EST Respiratory Rate 20 09/03/2020 11:11 AM EST Oxygen Saturation 99% 09/03/2020 11:11 AM EST Inhaled Oxygen Concentration 99% 09/03/2020 1 1:11 AM EST Weight - - Height - - Body Mass Index - - documented in this encounter Patient Instructions * Patient Instructions* Dav Johnson MD - 09/03/2020 11:20 AM EST Get blood work Get repeat MRI Will decide next steps based on MRI Stop Levaquin on 09/08 Return in 4 weeks documented in this encounter Progress Notes * Dav Johnson MD - 09/03/2020 11:20 AM EST Images from the original note were not included. Patient ID: Aiden Stauffer Jr. is a 45 y.o. male. Chief Complaint Patient presents with ??? ID Consult Visit (New) ??? Osteomyelitis History of Present Illness 45 y.o. M s/p OLT 2018 with ESRD on home HD 5x a week re-admitted for vertebral osteomyelitis afterhaving a lapse in abx related to leaving rehab facility [facility]. Per prior notes, He was admitted to [facility] in [place] in mid April for back pain and [...] 28 he went to an ER in [place] as he was havingworsening back pain and leg weakness. He was transferred to [facility]. MRI showed changes consistent with lumbar discitis/osteomyelitis/epidural abscess (see below). An IR aspiration was performed on 06/03 with GPC seen on gram stain but no growth on the culture (patient having been on antibiotics at the time). He was seen by ID consult service and recommended to receive 8 weeks vancomycin (if dated from time of [facility] admission this would be until 07/23). He left [facility] and was unable to get abx [...] HD 3x a week (against his wishes). Still with considerable back pain across lumbar area and radiating to right hip. Worse with sitting and bending at hip; improved with ambulation and lying flat. No F/C. Making progress with PT and now walking with a walker mostly, but some freely as well. Pain down to 5/10. Histories He has a past medical history [...] Codeine Medications Outpatient Encounter Medications as of 09/03/2020 Medication Sig Dispense Refill ??? aspirin 81 [...] Take 200 mg by mouth at bedtime. ??? cloNIDine HCL (CATAPRES) 0.1 MG tablet [...] units in the PM. 15 mL 5 ??? lancets ([employer] LANCETS) 33 gauge Misc Use 1 strip as directed 4 times daily before meals and at bedtime. 150 each 5 ??? levoFLOXacin (LEVAQUIN) 500 MG tablet Take 0.5 tablets (250 mg total) by mouth at bedtime. 25 tablet 0 ??? lidocaine (LIDODERM) 5 % [...] by mouth daily. 30 tablet 0 ??? pen needle, diabetic [...] mouth at bedtime. 15 tablet 0 No facility-administered encounter medications on file as of 09/03/2020. Review of Systems Constitutional: Negative for chills and fever. HENT: Negative for mouth sores. Eyes: Negative for pain and visual disturbance. Respiratory: Negative for cough and shortness of breath. Cardiovascular: Positive for leg swelling. Negative for chest pain. Gastrointestinal: Negative for abdominal pain and diarrhea. Musculoskeletal: Positive for arthralgias. Negative for myalgias and neck stiffness. Skin: Negative for rash and wound. Neurological: Positive for weakness. Negative for headaches. Psychiatric/Behavioral: Negative for behavioral problems and confusion. Vitals Blood pressure 133/72, pulse 75, temperature 98 ??F (36.7 ??C), temperature source Temporal, resp. rate 20, SpO2 99 %. Physical Exam Constitutional: General: He is not in acute distress. Appearance: He is well-developed. Comments: obese HENT: Head: Normocephalic and atraumatic. Mouth/Throat: Pharynx: No oropharyngeal exudate or posterior oropharyngeal erythema. Eyes: General: No scleral icterus. Pupils: Pupils are equal, round, and reactive to light. Neck: Musculoskeletal: Normal range of motion. Cardiovascular: Rate and Rhythm: Normal rate and regular rhythm. Heart sounds: Murmur present. Comments: LUE fistula Pulmonary: Effort: Pulmonary effort is normal. Breath sounds: No wheezing or rales. Abdominal: General: There is distension. Palpations: Abdomen is soft. Tenderness: There is no abdominal tenderness. Musculoskeletal: General: No swelling or tenderness. Right lower leg: Edema present. Left lower leg: Edema present. Comments: Positive straight leg raise test on right TTP over paraspinal muscles at L4/5 Lymphadenopathy: Cervical: No cervical adenopathy. Skin: Coloration: Skin is not pale. Findings: No rash. Neurological: General: No focal deficit present. Mental Status: He is alert and oriented to person, place, and time. Review of Lab Results Lab Results Component Value Date HGB 8.3 (A) 08/19/2020 HCT 26.4 (A) 08/19/2020 WBC 4.2 08/19/2020 PLT 184 08/19/2020 Lab Results Component Value Date NEUTOPHILPCT 47.2 08/19/2020 LYMPHOPCT 40.4 08/19/2020 MONOPCT 8.1 08/19/2020 EOSPCT 3.1 08/19/2020 BASOPCT 0 08/19/2020 NEUTROABS 1.99 08/19/2020 LYMPHSABS 1.7 08/19/2020 MONOSABS 0.34 08/19/2020 EOSABS 0.13 08/19/2020 BASOSABS 0 08/19/2020 Lab Results Component Value Date NA 142 [...] 7.8 08/19/2020 Lab Results Component Value Date [id number] Nonreactive 01/13/2019 Lab Results Component Value Date QUANTIFERTB NEGATIVE 08/21/2017 Lab Results Component Value Date ESR 21 (H) 07/15/2020 ESR 21 (H) 06/22/2020 ESR 25 (H) 06/15/2020 ESR 28 (H) 06/01/2020 ESR 25 (H) 05/30/2020 Lab Results Component Value Date CRP 23.8 (H) 07/14/2020 CRP 94.2 (H) 06/22/2020 CRP 74.5 (H) 06/15/2020 CRP 47.0 (H) 06/08/2020 CRP 197.1 (H) 06/01/2020 Assessment/Plan 45 y.o. M s/p OLT 2018 admitted for MRSE lumbar osteomyelitis Vertebral osteomyelitis ([facility] Dx) - prior cx's with MRSE, recently GPCs which failed to grow - s/p Dalbavancin x2 and continues on daily Levaquin through 09/08 to complete 8 weeks - symptomatically improved as he can walk with a walker now - repeat ESR, CRP - given continued pain, repeat MRI L spine to eval for surgical needs or drainable fluid collections - RTC 4 weeks Number and Complexity of Problems (Level 4) During this encounter, I addressed 1 or more chronic illnesses with exacerbation, progression, or side effects of treatment Amount and/or Complexity of Data Ordered, Reviewed, or Analyzed (Level 4) I reviewed 2 external note(s) from:. I reviewed 2 test(s) including:. I ordered 2 test(s) including:. Risk of Complication and/or Morbidity or Mortality of Patient Management (Level 4) The patient's management entails Moderate risk of complications and/or morbidity or mortality. Overall LOS: 4 documented in this encounter Plan of Treatment Upcoming Encounters Date Type Department Care Team (Late st Contact Info) Description 07/15/2024 9:00 AM EST Hospital Encounter [facility] Interventional Radiology [address] [place] [address] Herve Carrillo MD [address] [facility] [address] [place] [address] documented as of this encounter Results * MRI Lumbar spine [...] Johnson MD IMG MRI ORDERABLES Final Result * (ABNORMAL) Differential (09/03/2020 11:49 AM EST) Myelocytes Relative 1.0(H) 0.0 - 0.0 % 09/03/2020 2:29 PM EST [facility] Metamyelocytes Relative 1.0(H) 0.0 - 0.0 % 09/03/2020 2:29 PM EST [facility] Neutrophils Relative 60.4 40.0 - 80.0 % 09/03/2020 2:29 PM EST [facility] Lymphocytes Relative 33.6 15.0 - 45.0 % 09/03/2020 2:29 PM EST [facility] Monocytes Relative 1.0 0.0 - 12.0 % 09/03/2020 2:29 PM EST [facility] Eosinophils Relative 3.0 0.0 - 8.0 % 09/03/2020 2:29 PM EST [facility] Basophils Relative 0.0 0.0 - 1.0 % 09/03/2020 2:29 PM EST [facility] nRBC 1(H) 0 - 0 /100 WBC 09/03/2020 2:29 PM EST [facility] Neutrophils Absolute 2,295 1,500 - 7,800 /uL 09/03/2020 2:29 PM EST [facility] Metamyelocytes Absolute 38(H) 0 - 0 /uL 09/03/2020 2:29 PM EST [facility] Myelocytes Absolute 38(H) 0 - 0 /uL 09/03/2020 2:29 PM EST [facility] Lymphocytes Absolute 1,277 850 - 3,900 /uL 09/03/2020 2:29 PM EST [facility] Monocytes Absolute 38(L) 200 - 950 /uL 09/03/2020 2:29 PM EST [facility] Eosinophils Absolute 114 15 - 500 /uL 09/03/2020 2:29 PM EST [facility] Basophils Absolute 0 0 - 200 /uL 09/03/2020 2:29 PM EST [facility] Polychromasia Present 09/03/2020 2:29 PM EST [facility] PLT Morphology Platelet morphology appears normal 09/03/2020 2:29 PM EST [facility] Whole blood specimen (specimen) 09/03/2020 11:49 AM EST 09/03/2020 1:04 PM EST Dav Johnson MD LAB BLOOD ORDERABLES Final Resu lt [facility] [address] [place] [address], [facility] * (ABNORMAL) CBC (09/03/2020 11:49 AM EST) WBC 3.8 3.8 - 10.8 10E3/uL 09/03/2020 1:16 PM EST [facility] RBC 2.75(L) 4.20 - 5.80 10E6/uL 09/03/2020 1:16 PM EST [facility] Hemoglobin 8.3(L) 13.2 - 17.1 g/dL 09/03/2020 1:16 PM EST [facility] Hematocrit 25.3(L) 38.5 - 50.0 % 09/03/2020 1:16 PM EST [facility] MCV 92.0 80.0 - 100.0 fL 09/03/2020 1:16 PM EST [facility] MCH 30.2 27.0 - 33.0 pg 09/03/2020 1:16 PM EST [facility] MCHC 32.9 32.0 - 36.0 g/dL 09/03/2020 1:16 PM EST [facility] RDW 17.8(H) 11.0 - 15.0 % 09/03/2020 1:16 PM EST [facility] Platelets 176 140 - 400 10E3/uL 09/03/2020 1:16 PM EST [facility] MPV 6.9(L) 7.5 - 11.5 fL 09/03/2020 1:16 PM EST [facility] Whole blood specimen (specimen) 09/03/2020 11:49 AM EST 09/03/2020 1:04 PM EST Dav Johnson MD LAB BLOOD ORDERABLES Final Resu lt Performing Organization Address [facility]/ZIP Co de Phone Number [facility] [address] * (ABNORMAL) C-reactive protein (09/03/2020 11:49 AM EST) CRP 14.3(H) 1.0 - 10.0 mg/L 09/03/2020 1:21 PM EST [facility] Plasma specimen (specimen) 09/03/2020 11:49 AM EST 09/03/2020 1:06 PM EST Dav Johnson MD LAB BLOOD ORDERABLES Final Resu lt Performing Organization Address [facility]/ZIP Co de Phone Number [facility] [address] * Sed Rate (09/03/2020 11:49 AM EST) Sed Rate 15 0 - 15 mm/hr 09/03/2020 2:37 PM EST [facility] Whole blood specimen (specimen) 09/03/2020 11:49 AM EST 09/03/2020 1:04 PM EST Dav Johnson MD LAB BLOOD ORDERABLES Final Resu lt Performing Organization Address [facility] Co de Phone Number [facility] [address] [facility]. [address] documented in this encounter Visit Diagnoses Diagnosis Vertebral osteomyelitis (CMS-HCC)- Primary Unspecified osteomyelitis, other specified site Vertebral osteomyelitis (CMS-HCC) Unspecified osteomyelitis, other specified site * Assessment & Plan Note - Dav Jonhson MD - 09/03/2020 12:06 PM ESTAssociated Problem(s): Vertebral osteomyelitis (CMS-HCC) - prior [...] drainable fluid collections - RTC 4 weeks documented in this encounter Additional Health Concerns Assessment Noted Time PHQ-9 Depression Total Score: 0 12/06/19 18 3:00 PM EDT documented as of this encounter Care Teams Clinical Product Specialist Relationship Specialty Start Date End Date Edgar Fournier MD [address] [place] [address] [place] [address] PCP - General 08/18/17 06/23/21 Maile Valles, RN Txp Post Coordinator Transplant Hepatology 11/07/17 Jack Ordoñez MD [address] [place] [phone] Consulting Physician Transplant Hepatology 01/05/18 Estephania Sharif, DarrianD Pharmacist Pharmacist 11/11/19 documented as of this encounter
--- OUTSIDE RECORDS SUMMARY | 2024-07-12 12:37 | XMS_ITS | Encounter Summary ---
Author Organization [facility] Address [facility] [place] [address] Care Team Providers Care Order Entry Technician Name Role Phone Edgar Fournier MD Primary Care Provider [phone] Maile Valles RN Unavailable Unavail able Jack Ordoñez MD Unavailable [phone] Estephania Sharif PharmD Unavailable Christine vailable [...] release of HIV test results or diagnoses. [id number] Health Reason for Visit * Auth/Cert Specialty Diagnoses / Procedures Referred By Contact Referred To Contact Gastroenterology Diagnoses luz esoophagitis, Procedures EGD 48505 (CPT??) - NE ESOPHAGOGASTRODUODENOSCOPY TRANSORAL DIAGNOSTIC 14697 (CPT??) - NE EGD TRANSORAL BIOPSY SINGLE/MULTIPLE [facility] ENDOSCOPY [address] [place] [address] Phone: [phone] Referral ID Status Reason Start Date Expiration Date Visits Re quested Visits Authorized [id number] 1 1 Encounter Details Date Type Department Care Team (Late st Contact Info) Description 08/11/2020 10:30 AM EST - 08/11/2020 11:00 AM EST Surgery [facility] ENDOSCOPY [address] [place] [phone] Tej Sullivan MD [address] [place] [address] EGD Surgery Details Date/Time Status Location OR Service Patient Class Case Class Case Type Trauma Case? 08/11/2020 10:30 AM Posted ENDOSCOPY E[facility] OP Surg/Ambul atory EGD/Sm Bowel Panel 1 Procedure LRB Anes Op Region Wound Class Comments EGD N/A MAC (Monitor Anesthesia Care) N/A Surgeon Surgeon Role Service Panel Tej Sullivan MD Primary Gastroenterology 1 Special Needs confirm to eleonora Mendoza test 08/09/20, needs biopsies documented in this encounter Social History Tobacco [...] Sign Reading Time Taken Comments Blood Pressure 152/85 08/11/2020 10:56 AM EST Pulse 86 08/11/2020 10:56 AM EST Temperature 36.6 ??C (97.8 ??F) 08/11/2020 10:[address] Respiratory Rate - - Oxygen Saturation 98% 08/11/2020 10:56 AM EST Inhaled Oxygen Concentration 98% 08/11/2020 1 0:56 AM EST Weight - - Height - - Body Mass Index - - documented in this encounter Discharge Instructions * Discharge Instructions* Poornima Juárez RN - 08/11/2020 12:03 PM EST [facility] ENDOSCOPY INSTRUCTION/RELEASE FORMS Date: 08/11/2020 Procedure: Procedure(s): EGD IF YOU DEVELOP EXCESSIVE BLEEDING, UNCONTROLLED PAIN OR SHORTNESS OF BREATH, GO TO THE EMERGENCY DEPARTMENT FOR AN EXAMINATION. IF YOU DEVELOP CHILLS, FEVER (greater than 100.5) OR HAVE CONCERNS ABOUT YOUR RECOVERY, CALL Dr. Sullivan AT [phone]. 1. You may experience lightheadedness and nausea. [...] strip 5 8 03/18/20 22 blood-glucose meter (ONEAmitreeUCH VERIO SYSTEM) [facility] [place], [place] Use as instructed. 1 each 8 03/18/20 [...] Nguyen MD - 08/11/2020 11:18 AM EST [facility] PRE-SEDATION ASSESSMENT, HISTORY & PHYSICAL Date: [...] Feng CNP blood-glucose meter (ONETOUCH VERIO SYSTEM) [facility] [place] [place] Use as instructed. 10/18/17 Bere Feng CNP [...] Sullivan MD - 08/11/2020 11:35 AM EST [id number] Procedure Date: 08/11/2020 11:35 AM Patient Name: [...] Continue present medications. Continue pantoprazole 40mg daily. Union Representative to take on an empty stomach. - Await pathology results. Treat h pylori if positive. - No repeat upper endoscopy. Procedure Code(s): --- Professional --- 53824, GC, Esophagogastroduodenoscopy, flexible, transoral; with biopsy, single or multiple Diagnosis Code(s): --- Professional --- K21.0, Gastro-esophageal reflux disease with esophagitis K29.70, Gastritis, unspecified, without bleeding K29.80, Duodenitis without bleeding CPT copyright 2019 [employer]. All rights reserved. The codes documented in this report are preliminary and upon property insurance inspector review may be revised to meet current [...] In: 11:40:24 AM Scope Out: 11:45:[address] [place] [address] documented in this encounter Plan of Treatment Upcoming Encounters Date Type Department Care Team (Late st Contact Info) Description 07/15/2024 9:00 AM EST Hospital Encounter [facility] Interventional Radiology [address] [place] [address] Herve Carrillo MD [address] [facility] [address] [facility] [place] [address] documented as of this encounter Procedures Procedure Name Priority Date/Time Associated Diagnosis Comments DILATATION Routine 08/11/2020 11:35 AM EST EGD EGD/Sm Bowel 08/11/2020 11:34 AM EST Esophageal candidiasis (CMS-HCC) Esophagitis Special Needs confirm to Dr trejo, covid test 08/09/20, needs biopsies POTASSIUM, BLOOD GAS STAT 08/11/2020 11:20 AM EST POC GLU MONITORING DEVICE Routine 08/11/2020 11:20 AM EST SURGICAL PATHOLOGY EXAM Routine 08/11/2020 12:00 AM EST documented in this encounter Results * DILATATION (08/11/2020 11:35 AM EST) 08/11/2020 11:3 5 AM EST Narrative [facility] - 08/11/2020 12:54 PM EST [id number] Procedure Date: 08/11/2020 11:35 AM ?? Patient Name: Leoncio Rollins ? Date of : 1975 ?Admit Type: Ambulatory Age: 45 ? Gender: Male Note Status: Finalized ?Attending MD: Tej Sullivan MD Procedure: ? Upper GI endoscopy Indications: ? Follow-up of reflux esophagitis Patient Profile: ? 45 yo male with OLT in 2018 who presents for follow up ? of [...] present medications. Continue pantoprazole ? 40mg daily. Union Representative to take on an empty stomach. ? - Await pathology results. Treat h pylori if positive. ? - No repeat upper endoscopy. ? Procedure Code(s): ?? --- Professional --- ? 48889, GC, Esophagogastroduodenoscopy, flexible, ? transoral; with biopsy, single or multiple Diagnosis Code(s): ?? --- Professional --- ? K21.0, Gastro-esophageal reflux disease with esophagitis ? K29.70, Gastritis, unspecified, without bleeding ? K29.80, Duodenitis without bleeding CPT copyright 2019 [employer]. All rights reserved. The codes documented in this report are preliminary and upon property insurance inspector review may be revised to meet current [...] AM Scope Out: 11:45:39 AM ? [address] [phone] us Attending Provider Unknown PROCEDURE/MINOR SURGI NI ORDERABLES Final Result [facility] [address] [facility] [place] [address] * POC Glucose Monitoring Device (08/11/2020 11:20 AM EST) POC Glucose Monitoring Device 88 70 - 100 mg/dL 08/11/2020 11:20 AM EST [facility] Blood specimen (specimen) 08/11/2020 11:20 AM EST 08/11/2020 11:20 AM EST Tej Sullivan MD POINT OF CARE TEST ORDERABLES Fi nal Result Performing Organization Address [facility] Co de Phone Number [facility] [address] [facility]. [address] * Potassium, Blood Gas (08/11/2020 11:20 AM EST) Potassium, Blood Gas 5.0 3.5 - 5.3 mEq/L 08/11/2020 11:25 AM EST [facility] Arterial blood specimen (specimen) 08/11/2020 11:20 AM EST 08/11/2020 11:24 AM EST Manuela Richardson MD LAB BLOOD ORDERABLES Final Resul t Performing Organization Address [facility] Co de Phone Number [facility] [address] [facility]. [address] * Surgical Pathology Exam (08/11/2020 12:00 AM EST) 08/11/2020 08/11/2020 Narrative [facility] - 08/11/2020 12:00 AM EST CASE: [id number] PATIENT: LEONCIO ROLLINS Clinical History: ?? EGD Pre-Operative Diagnosis: luz esophagitis Post-Operative Diagnosis: ? mild gastritis, duodenitis, small hiatal hernia Specimen(s) Submitted: ?? A. gastric bx to R/O H pylori CPT Code(s): ?? 29492 X 1; 93048 X 1 Additional Information: FINAL DIAGNOSIS: Stomach, [...] biopsy bag and entirely submitted in cassette [id number] with HP is written on the side of the cassette. ??(NAVNEET Lemon/ab) Microscopic Description: Two HE and one immunostaining for H pylori stained slides were examined. Shayne Armendariz MD (Resident)/buster Hernandez, the attending pathologist, have personally reviewed all prosector/resident work and pathology slides to determine final diagnosis. Some tests use analyte-specific reagents (ASRs). These tests were developed and their performance characteristics determined by [facility]. They have not been [...] Pathologist signing this report is located at [facility], [address] [place] [address], [place], [address], , CLIA ID: [id number] Tej Sullivan MD PATHOLOGY/CYTOLOGY ORDERABLES Fi nal Result [facility] documented in this encounter Visit Diagnoses Diagnosis Preoperative testing Unspecified pre-operative examination Candidal esophagitis (CMS-HCC) Candidiasis of the esophagus Esophageal candidiasis (CMS-HCC) Candidiasis of the esophagus Esophagitis Unspecified esophagitis documented in this encounter Administered Medications Inactive [...] e 08/11/20 at 1130, Pre-procedure(GI)Indications:Preoperative testing,Candidal esophagitis (CMS-HCC) documented in this encounter Active and Recently Administered Medications Times are shown in EST. Continuous Medication Order 08/09/2020 08/10/2020 08/11/2020 sodium chloride 0.9 % infusion 50 mL/hr, Intravenous, Continuous, Starting on e 08/11/20 at 1130, Pre-procedure(GI) 1130 (Due) PRN Medication [...] sugar, for glucose 50-70 mg/dL, Starting on Mon08/11/20 at 1059, Recheck glucose [...] documented as of this encounter Care Teams Order Entry Technician Relationship Specialty Start Date End Date Edgar Fournier MD [address] [place] [address] [place] [address] PCP - General 08/18/17 06/23/21 Maile Valles, JANA Txp Post Coordinator Transplant Hepatology 11/07/17 Jack Ordoñez MD [address] [place] [phone] Consulting Physician Transplant Hepatology 01/05/18 Estephania Sharif, PharmD Pharmacist Pharmacist 11/11/19 documented as of this encounter
--- OUTSIDE RECORDS SUMMARY | 2024-07-12 12:37 | XMS_ITS | Encounter Summary ---
Author Organization [facility] Address [address] [place] [address] Care Team Providers Care Wood Model Builder Name Role Phone Edgar Fournier MD Primary Care Provider [phone] Maile Valles RN Unavailable Unavail able Jack Ordoñez MD Unavailable [phone] Estephania Sharif PharmD Unavailable Christine vailable [...] release of HIV test results or diagnoses. [id number] Health Encounter Details Date Type Department Care Team (Late st Contact Info) Description 08/12/2020 Telephone [facility] [id number] [place] [address] Dav Johnson MD [address] [facility] [address] [place] [address] Social History Tobacco Use Types Packs/Day Years [...] Miscellaneous Notes * Telephone Encounter - Krystal Rosado - 08/12/2020 11:46 AM EST Phoned and scheduled on 09/03/[address] Johnson * Telephone Encounter - Krystal Rosado - 08/12/2020 10:28 AM EST Aiden Stauffer called the office to reschedule his appointment from 08/10/2020 that he missed as Mr Stauffer states that he did not know about the F appointment and that he is has dialysis on Monday, Monday and Monday so if rescheduled he would need to be seen on a Monday or . Also Mr Stauffer is asking if Dr Johnson could do a telehealth or video visit instead of Mr Stauffer coming into the office. I reviewed Dr Johnson's Brogan schedule for a and the next available is 09/03/20 urgent or 09/10/20. Mr Stauffer states he has been out of the hospital for 3 weeks now and is not sure that Dr Johnson wantshim to wait that long to be seen. I let Mr Stauffer know that I will send this message to Dr Johnson and get back to him with an appointment. Mr Stauffer voiced understanding documented in this encounter Plan of Treatment Upcoming Encounters Date Type Department Care Team (Late st Contact Info) Description 07/15/2024 9:00 AM EST Hospital Encounter [facility] Interventional Radiology [address] [place] [phone] Herve Carrillo MD [address] [place] [address] [facility] [address] [place] [phone] documented as of this encounter Visit Diagnoses Not on filedocumented in this encounter Additional Health Concerns Assessment Noted Time PHQ-9 Depression Total Score: 0 12/06/19 18 3:00 PM EDT documented as of this encounter Care Teams Wood Model Builder Relationship Specialty Start Date End Date Edgar Fournier MD [address] [place] [address] [place] [address] PCP - General 08/18/17 06/23/21 Maile Valles, JANA Txp Post Coordinator Transplant Hepatology 11/07/17 Jack Ordoñez MD [address] [place] [phone] Consulting Physician Transplant Hepatology 01/05/18 Estepahnia Sharif, DarrianD Pharmacist Pharmacist 11/11/19 documented as of this encounter
--- OUTSIDE RECORDS SUMMARY | 2024-07-12 12:37 | XMS_ITS | Encounter Summary ---
Author Organization [facility] Address [address] [place] [address] Care Team Providers Care Event Coordinator Name Role Phone Edgar Fournier MD Primary Care Provider [phone] Maile Valles RN Unavailable Unavail able Jack Ordoñez MD Unavailable [phone] Estephania Sharif PharmD Unavailable Christine vailable [...] release of HIV test results or diagnoses. [id number] Reason for Visit * Reason Comments Advice Only Encounter Details Date Type Department Care Team (Late st Contact Info) Description 08/21/2020 Telephone [facility] Liver Transplant at [address] [place] [address] Anne Whitt MA Advice Only [...] Telephone Encounter - Maile Valles RN - 08/21/2020 4:00 PM EST Patient currently taking Protonix 40 mg daily. Spoke with patient. He noted that PCP already increased Protonix dose. Explained that this inflammation can take some time to heal. Offered suggestions for other PPIs to try if PCP wanted to. Patient verbalized understanding. * Telephone Encounter - Anne Whitt MA - 08/21/2020 3:54 PM EST Pt LM on 9999 line asking that someone call him. Contacted pt and pt was asking if his labs had been received. Looked at the notes and let him know that his liver labs were normal. Pt asking what to do about the inflammation. His PCP told him he has inflammation in stomach and ptasking what can be done about it. Pt also states he had scope a couple weeks ago and asking what those results were. Found path note for EGD and let him know there was no H pylori or malignancy. Pt says PCP says he has moderate gastritis and PCP told him to call txp team. He says it is painfuland wants to know what he can do. documented in this encounter Plan of Treatment Upcoming Encounters Date Type Department Care Team (Late st Contact Info) Description 07/15/2024 9:00 AM EST Hospital Encounter [facility] Interventional Radiology [address] [place] [address] Herve Carrillo MD [address] [facility] [address] Surgery [place] [phone] documented as of this encounter Visit Diagnoses Not on filedocumented in this encounter Additional Health Concerns Assessment Noted Time PHQ-9 Depression Total Score: 0 12/06/19 18 3:00 PM EDT documented as of this encounter Care Teams Event Coordinator Relationship Specialty Start Date End Date Edgar Fournier MD [address] [place] [address] [place] [address] PCP - General 08/18/17 06/23/21 Maile Valles, JANA Txp Post Coordinator Transplant Hepatology 11/07/17 Jack Ordoñez MD [address] [place] [phone] Consulting Physician Transplant Hepatology 01/05/18 Estephania Sharif, DarrianD Pharmacist Pharmacist 11/11/19 documented as of this encounter
--- OUTSIDE RECORDS SUMMARY | 2024-07-12 12:37 | XMS_ITS | Encounter Summary ---
Author Organization [facility] Address [address] [place] [address] Care Team Providers Care Is Support Analyst Name Role Phone Edgar Fournier MD Primary Care Provider [phone] Maile Valles RN Unavailable Unavail able Jack Ordoñez MD Unavailable [phone] Estephania Sharif PharmD Unavailable Christine vailable [...] release of HIV test results or diagnoses. [id number] Reason for Visit * Reason Comments Advice Only Encounter Details Date Type Department Care Team (Late st Contact Info) Description 08/06/2020 Telephone [facility] SOCIAL WORK [address] [place] [address] Cornelia Fournier Advice Only Social History Tobacco Use Types [...] encounter Miscellaneous Notes * Telephone Encounter - Cornelia Fournier - 08/06/2020 9:27 AM EST [facility] as part of Readmission Protocol, to follow up after hospital discharge. Pt stated he's doing really good, and that the care he received while here was excellent. Pt stated needs no further assistance at this time. Cornelia Fournier [facility] Work[facility] [phone] documented in this encounter Plan of Treatment Upcoming Encounters Date Type Department Care Team (Late st Contact Info) Description 07/15/2024 9:00 AM EST Hospital Encounter [facility] Interventional Radiology [address] [place] [phone] Herve Carrillo MD [address] [facility] [address] [place] [phone] documented as of this encounter Visit Diagnoses Not on filedocumented in this encounter Additional Health Concerns Infection Onset Date Last Indicated Resolved Time Rule Out COVID-19 08/09/2020 08/09/2020 08/10/2020 10:14 AM EST Assessment Noted Time PHQ-9 Depression Total Score: 0 12/06/19 18 3:00 PM EDT documented as of this encounter Care Teams Is Support Analyst Relationship Specialty Start Date End Date Edgar Fournier MD [address] [place] [address] [place] [address] PCP - General 08/18/17 06/23/21 Maile Valles, JANA Txp Post Coordinator Transplant Hepatology 11/07/17 Jack Ordoñez MD [address] [place] [address] Consulting Physician Transplant Hepatology 01/05/18 Estephania Sharif, PharmD Pharmacist Pharmacist 11/11/19 documented as of this encounter
--- OUTSIDE RECORDS SUMMARY | 2024-07-12 12:37 | XMS_ITS | Encounter Summary ---
Author Organization [facility] Address [address] [place] [address] Care Team Providers Care Customer Services Manager Name Role Phone Edgar Fournier MD Primary Care Provider [phone] Maile Valles RN Unavailable Unavail able Jack Ordoñez MD Unavailable [phone] Estephania Sharif PharmD Unavailable Christine vailable [...] release of HIV test results or diagnoses. [id number] Reason for Visit * Reason Comments Results Encounter Details Date Type Department Care Team (Late st Contact Info) Description 08/20/2020 Telephone [facility] Liver Transplant at [address] [place] [address] Lyndsey Lozano, JANA Results Social History [...] Telephone Encounter - Maile Valles RN - 09/04/2020 10:37 AM EST CSA 39 Will continue to monitor as per previously determined lab intervals. * Telephone Encounter - Lyndsey Lozano RN - 08/20/2020 10:56 AM EST Lab results from 08/19/20 reviewed. BUN 17 sCr 4.0 (Dialysis patient) Liver numbers WNL CSA pending. Txp Coordinator to follow-up. * Telephone Encounter - Lyndsey Lozano RN - 08/20/2020 10:55 AM EST ----- Message from Anne Whitt MA sent at 08/20/2020 10:47 AM EST ----- Cyclo pending documented in this encounter Plan of Treatment Upcoming Encounters Date Type Department Care Team (Late st Contact Info) Description 07/15/2024 9:00 AM EST Hospital Encounter [facility] Interventional Radiology [address] [place] [address] Herve Carrillo MD [address] [place] [address] [facility] [address] [place] [phone] documented as of this encounter Visit Diagnoses Not on filedocumented in this encounter Additional Health Concerns Assessment Noted Time PHQ-9 Depression Total Score: 0 12/06/19 18 3:00 PM EDT documented as of this encounter Care Teams Customer Services Manager Relationship Specialty Start Date End Date Edgar Fournier MD [address] [place] [address] [place] [address] PCP - General 08/18/17 06/23/21 Maile Valles, JANA Txp Post Coordinator Transplant Hepatology 11/07/17 Jack Ordoñez MD [address] [place] [address] Consulting Physician Transplant Hepatology 01/05/18 Estephania Sharif, DarrianD Pharmacist Pharmacist 11/11/19 documented as of this encounter
--- OUTSIDE RECORDS SUMMARY | 2024-07-12 12:37 | XMS_ITS | Encounter Summary ---
Author Organization [facility] Address [address] [place] [address] Care Team Providers Care Shredding Machine Operator Name Role Phone Edgar Fournier MD Primary Care Provider [phone] Maile Valles RN Unavailable Unavail able Jack Ordoñez MD Unavailable [phone] Estephania Sharif PharmD Unavailable Christine vailable [...] release of HIV test results or diagnoses. [id number] Health Encounter Details Date Type Department Care Team (Late st Contact Info) Description 08/13/2020 Chart Note [facility] Liver Transplant at [facility] [address] [facility] [address] [place] [address] Anne Whitt MA Social History [...] 07/15/2024 9:00 AM EST Hospital Encounter [facility] Interventional Radiology [address] [place] [address] Herve Carrillo MD [address] [facility] Ed [address] [facility] [place] [phone] documented as of this encounter Procedures Procedure Name Priority Date/Time Associated Diagnosis Comments HEPATIC FUNCTION PANEL Routine 08/11/2020 11:16 PM EST RENAL FUNCTION PANEL W/O EGFR Routine 08/11/2020 11:16 PM EST HEPATIC FUNCTION PANEL Routine 07/14/2020 1:50 PM EST RENAL FUNCTION PANEL W/O EGFR Routine 07/14/2020 1:50 PM EST documented in this encounter Results * (ABNORMAL) Renal Function Panel w/o EGFR (08/11/2020 11:16 PM EST) BUN/Creatinine Ratio 5.2 Glucose 115 mg/dL BUN 34(A) 4 - 21 mg/dL CO2 28(A) 13 - 22 mmol/L Creatinine 6.5(A) 0.6 - 1.3 mg/dL Potassium 4.7 3.4 - 5.3 mmol/L Sodium 142 137 - 147 mmol/L Chloride 104 99 - 108 mmol/L Albumin 3.1 Calcium 9.2 8.7 - 10.7 mg/dL Uric Acid 4.1 EGFR 10 mg/dL Blood specimen (specimen) Result [facility] Provider LAB BLOOD ORDERABLES Yoselin l Result * Hepatic Function Panel (08/11/2020 11:16 PM EST) Pathologist [facility] Alkaline Phosphatase 77 U/L ALT 11 U/L AST 9 U/L Total Bilirubin 0.9 0.1 - 1.4 mg/dL Total Protein 7.1 6.4 - 8.2 g/dL Plasma specimen (specimen) Result [facility] Provider LAB BLOOD ORDERABLES Yoselin l Result * (ABNORMAL) Renal Function Panel w/o EGFR (07/14/2020 1:50 PM EST) Pathologist [facility] BUN/Creatinine Ratio 5.8 Glucose 86 mg/dL BUN 70(A) 4 - 21 mg/dL CO2 19 13 - 22 mmol/L Creatinine 12.1(A) 0.6 - 1.3 mg/dL Potassium 7(A) 3.4 - 5.3 mmol/L Sodium 139 137 - 147 mmol/L Chloride 105 99 - 108 mmol/L Albumin 2.9 Calcium 9.7 8.7 - 10.7 mg/dL EGFR 5 mg/dL Blood specimen (specimen) Result [facility] LAB BLOOD ORDERABLES Yoselin l Result * Hepatic Function Panel (07/14/2020 1:50 PM EST) Pathologist [facility] Alkaline Phosphatase 78 U/L ALT 7 U/L AST 15 U/L Total Bilirubin 0.7 0.1 - 1.4 mg/dL Total Protein 6.9 6.4 - 8.2 g/dL Plasma specimen (specimen) Result [facility] Provider LAB BLOOD ORDERABLES Yoselin l Result documented in this encounter Visit Diagnoses Not on filedocumented in this encounter Additional Health Concerns Assessment Noted Time PHQ-9 Depression Total Score: 0 12/06/19 18 3:00 PM EDT documented as of this encounter Care Teams Shredding Machine Operator Relationship Specialty Start Date End Date Edgar Fournier MD [address] [place] [address] PCP - General 08/18/17 06/23/21 Maile Valles, RN Txp Post Coordinator Transplant Hepatology 11/07/17 Jack Ordoñez MD [facility] [place] [address] Consulting Physician Transplant Hepatology 01/05/18 Estephania Sharif, PharmD Pharmacist Pharmacist 11/11/19 documented as of this encounter
--- OUTSIDE RECORDS SUMMARY | 2024-07-12 12:37 | XMS_ITS | Encounter Summary ---
Author Organization [facility] Address [address] [place] [address] Care Team Providers Care Supervisor Grounds Name Role Phone Edgar Fournier MD Primary Care Provider [phone] Maile Valles RN Unavailable Unavail able Jack Ordoñez MD Unavailable [phone] Estephania Sharif PharmD Unavailable Christine vailable [...] release of HIV test results or diagnoses. [id number] Encounter Details Date Type Department Care Team (Latest Contact Info) Description 08/11/2020 Travel Social History Tobacco Use Types Packs/Day [...] EST Hospital Encounter [facility] Interventional Radiology [address] [place] [address] Herve Carrillo MD [address] [facility] Ed [address] Surgery [place] [phone] documented as of this encounter Visit Diagnoses Not on filedocumented in this encounter Additional Health Concerns Assessment Noted Time PHQ-9 Depression Total Score: 0 12/06/19 18 3:00 PM EDT documented as of this encounter Care Teams Supervisor Grounds Relationship Specialty Start Date End Date Edgar Fournier MD [address] [place] [address] [place] [address] PCP - General 08/18/17 06/23/21 Maile Valles, JANA Txp Post Coordinator Transplant Hepatology 11/07/17 Jack Ordoñez MD [address] [place] [phone] Consulting Physician Transplant Hepatology 01/05/18 Estephania Sharif, DarrianD Pharmacist Pharmacist 11/11/19 documented as of this encounter
--- OUTSIDE RECORDS SUMMARY | 2024-07-12 12:37 | XMS_ITS | Encounter Summary ---
Author Organization [facility] Address [address] [place] [address] Care Team Providers Care Sharepoint Architect Name Role Phone Edgar Fournier MD Primary Care Provider [phone] Maile Valles RN Unavailable Unavail able Jack Ordoñez MD Unavailable [phone] Estephania Sharif PharmD Unavailable Christine vailable [...] release of HIV test results or diagnoses. [id number] Reason for Visit * Reason Comments Orders Encounter Details Date Type Department Care Team (Late st Contact Info) Description 08/03/2020 Telephone [facility] I.D.C. at [facility] [address] [facility] [address] [place] [address] Dav Johnson MD [address] [facility] [address] [place] [address] Orders Social History Tobacco Use Types Packs/Day Years [...] Telephone Encounter - Che Ingram RN - 08/04/2020 9:37 AM EST Spoke with Mr. Stauffer, states he would like to have his antibiotic labs taken along with transplantlabs. Lab orders faxed to [phone]. * Telephone Encounter - Beata Iyer - 08/03/2020 8:45 AM EST Pt called requesting labs to be placed. Noted that he would like these sent to [facility]. Pt noted that he does not have their fax number. Caller requests return call at [phone]. documented in this encounter Plan of Treatment Upcoming Encounters Date Type Department Care Team (Late st Contact Info) Description 07/15/2024 9:00 AM EST Hospital Encounter [facility] Interventional Radiology [address] [place] [address] Herve Carrillo MD [address] [place] [address] [facility] [address] [place] [address] documented as of this encounter Visit Diagnoses Not on filedocumented in this encounter Additional Health Concerns Assessment Noted Time PHQ-9 Depression Total Score: 0 12/06/19 18 3:00 PM EDT documented as of this encounter Care Teams Sharepoint Architect Relationship Specialty Start Date End Date Edgar Fournier MD [address] [place] [address] [place] [address] PCP - General 08/18/17 06/23/21 Maile Valles, RN Txp Post Coordinator Transplant Hepatology 11/07/17 Jack Ordoñez MD [address] [place] [address] Consulting Physician Transplant Hepatology 01/05/18 Estpehania Sharif, DarrianD Pharmacist Pharmacist 11/11/19 documented as of this encounter
--- OUTSIDE RECORDS SUMMARY | 2024-07-12 12:37 | XMS_ITS | Encounter Summary ---
Author Organization [facility] Address [address] [place] [address] Care Team Providers Care Safety Glass Installer Name Role Phone Edgar Fournier MD Primary Care Provider [phone] Maile Valles RN Unavailable Unavail able Jack Ordoñez MD Unavailable [phone] Estephania Sharif PharmD Unavailable Christine vailable [...] release of HIV test results or diagnoses. [id number] Reason for Visit * Reason Comments Appointment Encounter Details Date Type Department Care Team (Late st Contact Info) Description 09/02/2020 Telephone [facility] I.D.C. at [facility] [address] [facility] [address] [place] [address] Gloria Marx MA Appointment Social History Tobacco Use Types [...] encounter Miscellaneous Notes * Telephone Encounter - Gloria Marx MA - 09/02/2020 1:50 PM EST 1. Have you been around someone who has traveled internationally within the last 14 days? NO 2. If yes, do you have a fever or flu symptoms (cough, sore throat, runny nose, body aches, etc.)? NO 3. Have you developed any new flu symptoms (cough, sore throat, runny nose, body aches, etc.) sinceyour admission that you did not have prior to admitting? NO If patient answered yes to 2 and/or 3 please provide details about symptoms related to these questions. Called patient for appointment reminder, patient confirmed. documented in this encounter Plan of Treatment Upcoming Encounters Date Type Department Care Team (Late st Contact Info) Description 07/15/2024 9:00 AM EST Hospital Encounter [facility] Interventional Radiology [address] [place] [address] Herve Carrillo MD [address] [facility] [address] [place] [address] documented as of this encounter Visit Diagnoses Not on filedocumented in this encounter Additional Health Concerns Assessment Noted Time PHQ-9 Depression Total Score: 0 12/06/19 18 3:00 PM EDT documented as of this encounter Care Teams Safety Glass Installer Relationship Specialty Start Date End Date Edgar Fournier MD [address] [place] [address] [place] [address] PCP - General 08/18/17 06/23/21 Maile Valles, RN Txp Post Coordinator Transplant Hepatology 11/07/17 Jack Ordoñez MD [address] [place] [phone] Consulting Physician Transplant Hepatology 01/05/18 Estephania Sharif, DarrianD Pharmacist Pharmacist 11/11/19 documented as of this encounter
--- OUTSIDE RECORDS SUMMARY | 2024-07-12 12:37 | XMS_ITS | Encounter Summary ---
Author Organization [facility] Address [address] [place] [address] Care Team Providers Care Cutter Hot Knife Name Role Phone Edgar Fournier MD Primary Care Provider [phone] Maile Valles RN Unavailable Unavail able Jack Ordoñez MD Unavailable [phone] Estephania Sharif PharmD Unavailable Christine vailable [...] release of HIV test results or diagnoses. [id number] Health Encounter Details Date Type Department Care Team (Latest Contact Info) Description 08/09/2020 8:55 AM EST Clinical Support [facility] COVID-19 Testing at [facility] Building [address] [place] [address] [address] [place] [address] Luis Madrid MD [address] [place] [address] 200 [place] [address] Eli Bass MA Exposure to viral disease (Primary Dx); Preop examination Social History Tobacco Use Types Packs/Day Years [...] as of this encounter Progress Notes * Eli Bass MA - 08/09/2020 8:55 AM EST Covid-19 nasopharyngeal specimen collected. documented in this encounter Plan of Treatment Upcoming Encounters Date Type Department Care Team (Late st Contact Info) Description 07/15/2024 9:00 AM EST Hospital Encounter [facility] Interventional Radiology [address] [place] [address] Herve Carrillo MD 3130 [facility] [address] Surgery [place] [phone] documented as of this encounter Visit Diagnoses Diagnosis Exposure to viral disease- Primary Preop examination Unspecified pre-operative examination documented in this encounter Additional Health Concerns Assessment Noted Time PHQ-9 Depression Total Score: 0 12/06/19 18 3:00 PM EDT documented as of this encounter Care Teams Cutter Hot Knife Relationship Specialty Start Date End Date Edgar Fournier MD [address] [place] [address] [place] [address] PCP - General 08/18/17 06/23/21 Maile Valles, JANA Txp Post Coordinator Transplant Hepatology 11/07/17 Jack Ordoñez MD [address] [place] [phone] Consulting Physician Transplant Hepatology 01/05/18 Estephania Sharif, PharmD Pharmacist Pharmacist 11/11/19 documented as of this encounter
--- OUTSIDE RECORDS SUMMARY | 2024-07-12 12:37 | XMS_ITS | Encounter Summary ---
Author Organization [facility] Address [address] [place] [address] Care Team Providers Care Speech Pathologist Assistant Name Role Phone Edgar Fournier MD Primary Care Provider [phone] Maile Valles RN Unavailable Unavail able Jack Ordoñez MD Unavailable [phone] Estephania Sharif PharmD Unavailable Christine vailable [...] release of HIV test results or diagnoses. [id number] Reason for Visit * Reason Comments Advice Only Encounter Details Date Type Department Care Team (Late st Contact Info) Description 08/20/2020 Telephone [facility] Liver Transplant at [address] [place] [address] Anne Whitt MA Advice Only [...] Encounter - Lyndsey Lozano RN - 08/20/2020 10:58 AM EST Returned patients call. Patient reports having EGD done early this week. Awaiting results. Was informed had inflammation noted during exam. Denies N/V/D. Labs reviewed without clinically significant abnormality. Liver numbers stable. Advised patient to follow-up with results of EGD biopsies and re commendations of GI Provider. Instructed to notify Liver Txp Coordinator with any other concerns. * Telephone Encounter - Anne Whitt MA - 08/20/2020 10:28 AM EST Pt called saying that had labs drawn and PCP called him about the results and wanted him to contacttxp team because he was concerned about the lab results. Pt states that dr said his stomach is inflamed. Pt also states that stomach is swollen. Says he was at dialysis yesterday and they only had to take off 1.3 L of fluid. Pt states that labs were doneabout 2 hours after dialysis. MA will track down lab results for txp team to review. Pt informed that txp team would get lab results to review and then get back to him, as he wants to know what it means when his PCP says his stomach is inflamed. documented in this encounter Plan of Treatment Upcoming Encounters Date Type Department Care Team (Late st Contact Info) Description 07/15/2024 9:00 AM EST Hospital Encounter [facility] Interventional Radiology [address] [place] [address] [place] [phone] Herve Carrillo MD [address] [facility] [address] Surgery [place] [address] documented as of this encounter Visit Diagnoses Not on filedocumented in this encounter Additional Health Concerns Assessment Noted Time PHQ-9 Depression Total Score: 0 12/06/19 18 3:00 PM EDT documented as of this encounter Care Teams Speech Pathologist Assistant Relationship Specialty Start Date End Date Edgar Fournier MD [address] [place] [address] [place] [address] PCP - General 08/18/17 06/23/21 Maile Valles, RN Txp Post Coordinator Transplant Hepatology 11/07/17 Jack Ordoñez MD [address] [place] [phone] Consulting Physician Transplant Hepatology 01/05/18 Estephania Sharif, DarrianD Pharmacist Pharmacist 11/11/19 documented as of this encounter
--- OUTSIDE RECORDS SUMMARY | 2024-07-12 12:37 | XMS_ITS | Encounter Summary ---
Author Organization [facility] Address [address] [place] [address] Care Team Providers Care Editor Farm Journal Name Role Phone Edgar Fournier MD Primary Care Provider [phone] Maile Valles RN Unavailable Unavail able Jack Ordoñez MD Unavailable [phone] Estephania Sharif PharmD Unavailable Christine vailable [...] release of HIV test results or diagnoses. [id number] Health Encounter Details Date Type Department Care Team (Late st Contact Info) Description 08/17/[address] [facility] Liver Transplant at [place] [address] [facility] [address] [place] [address] Anne Whitt MA Social History [...] Telephone Encounter - Anne Whitt MA - 08/17/2020 8:28 AM EST Spoke to pt about labs. Let him know that only labs available for him at his local lab were from anER visit, not labs ordered by txp team. Pt states that he was told in the ER that the labs drawn would be sent to . Pt states he will go to the lab in the next few days. Orders resent to lab with confirmation received. documented in this encounter Plan of Treatment Upcoming Encounters Date Type Department Care Team (Late st Contact Info) Description 07/15/2024 9:00 AM EST Hospital Encounter [facility] Interventional Radiology [address] [place] [phone] Herve Carrillo MD 4[address] [facility] 3[address] [place] [phone] documented as of this encounter Visit Diagnoses Not on filedocumented in this encounter Additional Health Concerns Assessment Noted Time PHQ-9 Depression Total Score: 0 12/06/19 18 3:00 PM EDT documented as of this encounter Care Teams Editor Farm Journal Relationship Specialty Start Date End Date Edgar [place] [address] PCP - General 08/18/17 06/23/21 Maile Valles, JANA Txp Post Coordinator Transplant Hepatology 11/07/17 Jack Ordoñez MD [address] [place] [phone] Consulting Physician Transplant Hepatology 01/05/18 Estephania Sharif, PharmD Pharmacist Pharmacist 11/11/19 documented as of this encounter
--- OUTSIDE RECORDS SUMMARY | 2024-07-12 12:38 | XMS_ITS | Encounter Summary ---
Author Organization [facility] Address [address] [place] [address] Care Team Providers Care Soda Tester Name Role Phone Edgar Fournier MD Primary Care Provider [phone] Maile Valles RN Unavailable Unavail able Jack Ordoñez MD Unavailable [phone] Estephania Sharif PharmD Unavailable Christine vailable [...] release of HIV test results or diagnoses. [id number] Reason for Referral * Surgical (Routine) - Closed Specialty Diagnoses / Procedures Referred By Contact Referred To Contact Gastroenterology Diagnoses Preoperative testing Candidal esophagitis ([facility]) Procedures Case request GI: EGD IL ESOPHAGOGASTRODUODENOSCOPY TRANSORAL DIAGNOSTIC IL EGD TRANSORAL BIOPSY SINGLE/MULTIPLE Bayron Moreno MD Referral ID Status Reason Start Date Expiration Date Visits Re quested Visits Authorized [id number] Closed 07/08/2020 01/04/2021 1 1 Encounter Details Date Type Department Care Team (Latest Contact Info) Description 07/08/2020 Orders Only [facility] Gastroenterology at [facility] [address] [facility] [address] [place] [phone] Bayron Moreno MD Preoperative testing (Primary Dx); Candidal esophagitis ([facility]) Social History Tobacco Use Types Packs/Day [...] have Coronavirus / COVID-19? No / Unsure 06/09/2020 1:44 AM EDT documented as of this encounter Plan of Treatment Upcoming Encounters Date Type Department Care Team (Late st Contact Info) Description 07/15/2024 9:00 AM EST Hospital Encounter [facility] Interventional Radiology [address] [place] [address] Herve Carrillo MD 3130 [facility] [address] [place] [address] documented as of this encounter Results * 2019 Novel Coronavirus (CoVID-19), FRANKLYN-B (08/09/2020 12:16 PM EST) SARS-CoV-2 Not Detected Not Detected 08/10/2020 10:14 AM EST [facility]ALTH [facility] Comment: This test is an amplified nucleic acid assay performed on a real time PCR platform. ??This test was developed and its performance characteristics determined by the [facility]. ??This test has not been cleared or approved by the FDA. This test has been authorized by the FDA under an Emergency Use Authorization (EUA). ??This test is used for clinical purposes. ??This [...] ??Test results have been sent to the [facility] in accordance with state requirements. ??For a healthcare provider fact sheet, see https://www.fda.gov/media/927064/download. ??For a patient fact sheet, see https://www.fda.gov/media/706098/download. Test LOINC ordered 51530-3 2019 10:14 AM EST [facility] Device identifier [employer]Taq[employer] COVID-19 Combo Kit_EUA 08/10/2020 10:14 AM EST [facility] First Test Unknown 08/10/2020 10:14 AM EST [facility] Healthcare employee Unknown 08/10/2020 10:14 AM EST [facility] Symptomatic Unknown 08/10/2020 10:14 AM EST [facility] Hospitalized Unknown 08/10/2020 10:14 AM EST [facility] In ICU Unknown 08/10/2020 10:14 AM EST [facility] Congregate Care Resident Unknown 08/10/2020 10:14 AM EST [facility] Unknown 08/10/2020 10:14 AM EST [facility] Nasopharyngeal swab (specimen) NASOPHARYNGEAL STRUCTURE / Unknown 08/09/2020 12:16 PM EST 08/09/2020 6:08 PM EST [facility] - 08/10/2020 10:14 AM EST Does the patient have symptoms of Covid-19 (eg. Fever, dyspnea, cough, loss of smell)?->Unknown/Patient cannot answer Bayron Dawson MD BODY FLUIDS AND STOOLS ORDERABLES Final Result [facility] [address] documented in this encounter Visit Diagnoses Diagnosis Preoperative testing- Primary Unspecified pre-operative examination Candidal esophagitis (CMS-HCC) Candidiasis of the esophagus documented in this encounter Additional Health Concerns Assessment Noted Time PHQ-9 Depression Total Score: 0 12/06/19 18 3:00 PM EDT documented as of this encounter Care Teams Soda Tester Relationship Specialty Start Date End Date Edgar Fournier MD [address] [place] [address] [place] [address] PCP - General 08/18/17 06/23/21 Maile Valles, RN Txp Post Coordinator Transplant Hepatology 11/07/17 Jack Ordoñez MD [address] [place] [phone] Consulting Physician Transplant Hepatology 01/05/18 Estephania Sharif, DarrianD Pharmacist Pharmacist 11/11/19 documented as of this encounter
--- OUTSIDE RECORDS SUMMARY | 2024-07-12 12:38 | XMS_ITS | Encounter Summary ---
Author Organization [facility] Address [address] [place] [address] Care Team Providers Care Vp Publisher Development Name Role Phone Edgar Fournier MD Primary Care Provider [phone] Maile Valles RN Unavailable Unavail able Jack Ordoñez MD Unavailable [phone] Estephania Sharif PharmD Unavailable Christine vailable [...] release of HIV test results or diagnoses. [id number] Reason for Visit * Reason Comments Medical Management Encounter Details Date Type Department Care Team (Late st Contact Info) Description 06/29/2020 Telephone [facility] I.D.C[facility] at [facility] [address] [facility] [address] [place] [address] Dav Johnson MD [address] [facility] [address] [place] [address] Medical Management Social History Tobacco Use Types [...] encounter Miscellaneous Notes * Telephone Encounter - Leonidas Ojeda RN - 06/29/2020 5:02 PM EST RN called back pt. He said he was set up for IV abx to be administered with dialysis treatments 3 x weekly (pt assumes). abx was delivered to his home, but when home health ns came to the home, she didn't know what to do about administering the IV abx through dialysis machine, Pureflow. Pt asked [facility] dialysis center about receiving IV abx there but they refused d/t Hep B dx. 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 Pt said Israel Zavala aware of this. 06/25/20 S Sally PEREZ d/c note: Despite minimal progress with therapy, Mr. Stauffer wanted to be discharged during the week of 06/22/2020. Therapy reassess, and because he was unable to transfer safely, felt that it was unsafe to discharge. I agreed with their assessment, and made it clear to Mr. Stauffer that it was entirely unsafe for him to be discharged until he was able to stand and walk at least a few feet. The patient did notagree, and remained adamant that he be discharged. I clearly explained the risks to him, and informed him that if he wanted to be discharged, it would be most assuredly against medical advice. He understood this, and wanted to be discharge anyway. Arrangements were made for home infusion for the remaining doses of vancomycin. Patient dc/d 06/26/20 from [facility] against medical advice. 06/25/20 care management note: Received a call on the [employer] Care Management on-call phone from Nurse (Nadya Garvin) with [facility] PH#[phone]. She stated that after completing the in home assessment of this patient today, she advised the patient that they could not admit him into their [facility] services and they instructed him to goto the Emergency Department for continued care and administration of his IV Antibiotics. She statesthat the patient verbalized understanding and agreement with same. I immediately contacted my Fire Prevention Specialist, Arjun Meyer to advise of situation and determine if any other actions needed to be taken. No other actions needed at this time. Also advised Dr Zavala of [facility]. In case pt can't be reached on his phone, spouse's # is [phone]. ?? * Telephone Encounter - Beata Iyer - 06/29/2020 3:46 PM EST Pt called to state that he was in the ED and noted that he was supposed to have IV abx set up with home health noted that this has not been done yet. Caller requests return call at [phone]. documented in this encounter Plan of Treatment Upcoming Encounters Date Type Department Care Team (Late st Contact Info) Description 07/15/2024 9:00 AM EST Hospital Encounter [facility] Interventional Radiology [address] [facility] [place] [phone] Herve Carrillo MD [address] [facility] 3[address] [place] [address] documented as of this encounter Visit Diagnoses Not on filedocumented in this encounter Additional Health Concerns Assessment Noted Time PHQ-9 Depression Total Score: 0 12/06/19 18 3:00 PM EDT documented as of this encounter Care Teams Vp Publisher Development Relationship Specialty Start Date End Date Edgar Fournier MD [address] [place] [address] [place] [address] PCP - General 08/18/17 06/23/21 aMile Valles, RN Txp Post Coordinator Transplant Hepatology 11/07/17 Jack Ordoñez MD [address] [place] [phone] Consulting Physician Transplant Hepatology 01/05/18 Estephania Sharif, PharmD Pharmacist Pharmacist 11/11/19 documented as of this encounter
--- OUTSIDE RECORDS SUMMARY | 2024-07-12 12:38 | XMS_ITS | Encounter Summary ---
Author Organization [facility] Address [address] [place] [address] Care Team Providers Care Tire Assembler Name Role Phone Edgar Fournier MD Primary Care Provider [phone] Maile Valles RN Unavailable Unavail able Jack Ordoñez MD Unavailable [phone] Estephania Sharif PharmD Unavailable Christine vailable [...] release of HIV test results or diagnoses. [id number] Reason for Visit * Reason Comments Medical Management Encounter Details Date Type Department Care Team (Late st Contact Info) Description 07/01/2020 Telephone [facility] I.D.C. at [facility] [address] [facility] [address] [place] [address] Dav Johnson MD [address] [facility] [address] [place] [address] Medical Management Social History Tobacco [...] encounter Miscellaneous Notes * Telephone Encounter - Beata Iyer - 07/01/2020 1:57 PM EST Images from the original note were not included. Pt called to follow-up on the 06/29/20 encounter. Noted that he does this all of the medications himself he just doesn't know how fast to give this to himself noted that the he has not seen HH because they refuse to do this at this time. Caller requests return call at [phone]. Jake Zavala MD to Leonidas Ojeda RN ??? Dave Dave MD ??? Murtaza Orourke MD ?? 1:16 PM I spent quite a bit of time trying to convince him not to discharge, because he wasn't even able tomove from bed to wheelchair without assist. He assured me it would be fine. We arranged home healthcare for him, and infusion services. He said he knew how to infuse vancomycin into the dialysis machine. He explained that there was a port to add iron or whatever needs to so. When the [facility] nurse did the home visit, they refused to take the case even though that company had worked with him before. He was in the middle of a dialysis run while the nurse was there, and the nurse told us that he disconnected the line, used his bare hands to extract a clot from the tubing, flushed the line (with remaining clot) back into the circuit, and then hooked himself up again. I don't think this patient is safe to use home HD at all. However, he will not listen to reason. I called his before he discharged, and she basically said that she opposed discharge, but that she wasn't able to convince him either. I'm perplexed why she and their sons enabled him by coming to pick him up, but there's only so much I can do in these situations. -Major documented in this encounter Plan of Treatment Upcoming Encounters Date Type Department Care Team (Late st Contact Info) Description 07/15/2024 9:00 AM EST Hospital Encounter [facility] Interventional Radiology [address] [place] [address] Herve Carrillo MD 3130 [facility] 3[address] [place] [address] documented as of this encounter Visit Diagnoses Not on filedocumented in this encounter Additional Health Concerns Assessment Noted Time PHQ-9 Depression Total Score: 0 12/06/19 18 3:00 PM EDT documented as of this encounter Care Teams Tire Assembler Relationship Specialty Start Date End Date Edgar Fournier MD [address] [place] [address] [place] [address] PCP - General 08/18/17 06/23/21 Maile Valles, RN Txp Post Coordinator Transplant Hepatology 11/07/17 Jack Ordoñez MD [address] [place] [phone] Consulting Physician Transplant Hepatology 01/05/18 Estephania Sharif, DarrianD Pharmacist Pharmacist 11/11/19 documented as of this encounter
--- OUTSIDE RECORDS SUMMARY | 2024-07-12 12:38 | XMS_ITS | Encounter Summary ---
Author Organization [facility] Address [address] [place] [address] Care Team Providers Care Clinical Research Associate Name Role Phone Edgar Fournier MD Primary Care Provider [phone] Maile Valles RN Unavailable Unavail able Jack Ordoñez MD Unavailable [phone] Estephania Sharif PharmD Unavailable Christine vailable [...] release of HIV test results or diagnoses. [id number] Reason for Visit * Reason Comments Medication Refill Encounter Details Date Type Department Care Team (Late st Contact Info) Description 07/10/2020 Refill [facility] Liver Transplant at [place] [id number] [facility] [address] [place] [address] Anne Whitt MA Social History [...] Encounter [facility] Interventional Radiology [address] [place] [phone] Herve Carrillo MD [address] [facility] Ed [address] [place] [address] documented as of this encounter Visit Diagnoses Not on filedocumented in this encounter Additional Health Concerns Assessment Noted Time PHQ-9 Depression Total Score: 0 12/06/19 18 3:00 PM EDT documented as of this encounter Care Teams Clinical Research Associate Relationship Specialty Start Date End Date Edgar Fournier MD [address] [place] [address] [place] [address] PCP - General 08/18/17 06/23/21 Maile Valles, JANA Txp Post Coordinator Transplant Hepatology 11/07/17 Jack Ordoñez MD [address] [place] [phone] Consulting Physician Transplant Hepatology 01/05/18 Estephania Sharif, DarrianD Pharmacist Pharmacist 11/11/19 documented as of this encounter
--- OUTSIDE RECORDS SUMMARY | 2024-07-12 12:38 | XMS_ITS | Encounter Summary ---
Author Organization [facility] Address [address] [place] [address] Care Team Providers Care Computer Technical Support Specialist Name Role Phone Edgar Fournier MD Primary Care Provider [phone] Maile Valles RN Unavailable Unavail able Jack Ordoñez MD Unavailable [phone] Estephania Sharif PharmD Unavailable Christine vailable [...] release of HIV test results or diagnoses. [id number] Health Encounter Details Date Type Department Care Team (Late st Contact Info) Description 07/03/2020 Telephone [facility] Liver Transplant at [place] [address] [facility] [address] [place] [address] Anne Whitt MA Social History Tobacco [...] Telephone Encounter - Anne Whitt MA - 07/03/2020 11:54 AM EST Attempted to reach pt again but no VM. * Telephone Encounter - Anne Whitt MA - 07/03/2020 9:44 AM EST Attempted to reach pt to schedule follow up. Pt does not have VM to LM. Will try again later on. documented in this encounter Plan of Treatment Upcoming Encounters Date Type Department Care Team (Late st Contact Info) Description 07/15/2024 9:00 AM EST Hospital Encounter [facility] Interventional Radiology [address] [place] [address] Herve Carrillo MD 3130 [facility] 3200 Surgery [place] [address] documented as of this encounter Visit Diagnoses Not on filedocumented in this encounter Additional Health Concerns Assessment Noted Time PHQ-9 Depression Total Score: 0 12/06/19 18 3:00 PM EDT documented as of this encounter Care Teams Computer Technical Support Specialist Relationship Specialty Start Date End Date Edgar Fournier MD [address] [place] [address] [place] [address] PCP - General 08/18/17 06/23/21 Maile Valles, RN Txp Post Coordinator Transplant Hepatology 11/07/17 Jack Ordoñez MD [facility] [place] [address] Consulting Physician Transplant Hepatology 01/05/18 Estephania Sharif, DarrianD Pharmacist Pharmacist 11/11/19 documented as of this encounter
--- OUTSIDE RECORDS SUMMARY | 2024-07-12 12:38 | XMS_ITS | Encounter Summary ---
Author Organization [facility] Address [address] [place] [address] Care Team Providers Care Telemetry Tech Name Role Phone Edgar Fournier MD Primary Care Provider [phone] Maile Valles RN Unavailable Unavail able Jack Ordoñez MD Unavailable [phone] Estephania Sharif PharmD Unavailable Christine vailable [...] release of HIV test results or diagnoses. [id number] Reason for Visit * Reason Comments Medical Management Encounter Details Date Type Department Care Team (Late st Contact Info) Description 07/03/2020 Telephone [facility] I.D[facility] at [facility] [address] [facility] ED [address] [place] [address] Dav Johnson MD 222 [facility] [address] [place] [address] Medical Management Social History Tobacco [...] Telephone Encounter - Leonidas Ojeda RN - 07/06/2020 10:35 AM EST RN called back Raquel/Leah de guzman ns. Their family support worker ordered PO abx for the pt. RN faxed to Raquel @ [phone] recent [facility] notes concerning the pt's ID discharge plan, pt's observed lack of infection control procedures with home dialysis. * Telephone Encounter - Ruben Hair - 07/03/2020 8:28 AM EST Raquel with [facility] called requesting a copy of notes related to pt communication with clinic and home health nurse (see previous encounter) Raquel [phone] documented in this encounter Plan of Treatment Upcoming Encounters Date Type Department Care Team (Late st Contact Info) Description 07/15/2024 9:00 AM EST Hospital Encounter [facility] Interventional Radiology [address] [place] [address] Herve Carrillo MD [address] [place] [address] [place] [address] documented as of this encounter Visit Diagnoses Not on filedocumented in this encounter Additional Health Concerns Assessment Noted Time PHQ-9 Depression Total Score: 0 12/06/19 18 3:00 PM EDT documented as of this encounter Care Teams Telemetry Tech Relationship Specialty Start Date End Date Edgar Fournier MD [address] [place] [address] [place] [phone] PCP - General 08/18/17 06/23/21 Maile Valles, JANA Txp Post Coordinator Transplant Hepatology 11/07/17 Jack Ordoñez MD [address] [place] [phone] Consulting Physician Transplant Hepatology 01/05/18 Estephania Sharif, DarrianD Pharmacist Pharmacist 11/11/19 documented as of this encounter
--- OUTSIDE RECORDS SUMMARY | 2024-07-12 12:38 | XMS_ITS | Encounter Summary ---
Author Organization [facility] Address [facility] [place] [address] Care Team Providers Care Assistant Director Of Plant Operations Name Role Phone Edgar Fournier MD Primary Care Provider [phone] Maile Valles RN Unavailable Unavail able Jack Ordoñez MD Unavailable [phone] Estephania Sharif PharmD Unavailable Christine vailable [...] release of HIV test results or diagnoses. [id number] Reason for Visit * Reason Comments Medication Refill Encounter Details Date Type Department Care Team (Late st Contact Info) Description 07/03/2020 Refill [facility] [address] [place] [address] Jake Zavala MD [address] [place] [address] Social History Tobacco Use Types Packs/Day Years [...] Description 07/15/2024 9:00 AM EST Hospital Encounter [facility] Interventional Radiology [address] [place] [address] Herve Carrillo MD 3130 [facility] 3[address] [place] [address] documented as of this encounter Visit Diagnoses Not on filedocumented in this encounter Additional Health Concerns Assessment Noted Time PHQ-9 Depression Total Score: 0 12/06/19 18 3:00 PM EDT documented as of this encounter Care Teams Assistant Director Of Plant Operations Relationship Specialty Start Date End Date Edgar Fournier MD [address] [place] [address] [place] [address] PCP - General 08/18/17 06/23/21 Maile Valles, JANA Txp Post Coordinator Transplant Hepatology 11/07/17 Jack Ordoñez MD [address] [place] [phone] Consulting Physician Transplant Hepatology 01/05/18 Estephania Sharif, DarrianD Pharmacist Pharmacist 11/11/19 documented as of this encounter
--- OUTSIDE RECORDS SUMMARY | 2024-07-12 12:38 | XMS_ITS | Encounter Summary ---
Author Organization [facility] Address [address] [place] [address] Care Team Providers Care Cycle Manager Name Role Phone Edgar Fournier MD Primary Care Provider [phone] Maile Valles RN Unavailable Unavail able Jack Ordoñez MD Unavailable [phone] Estephania Sharif PharmD Unavailable Christine vailable [...] release of HIV test results or diagnoses. [id number] Encounter Details Date Type Department Care Team (Latest Contact Info) Description 07/14/2020 Travel Social History Tobacco Use Types Packs/Day [...] have Coronavirus / COVID-19? No / Unsure 07/14/2020 8:01 PM EST documented as of this encounter Plan of Treatment Upcoming Encounters Date Type Department Care Team (Late st Contact Info) Description 07/15/2024 9:00 AM EST Hospital Encounter [facility] Interventional Radiology [address] [place] [address] Herve Carrillo MD 3130 [facility] 3[address] [place] [address] documented as of this encounter Visit Diagnoses Not on filedocumented in this encounter Additional Health Concerns Infection Onset Date Last Indicated Resolved Time Rule Out COVID-19 07/14/2020 07/14/2020 07/15/2020 12:52 PM EST Assessment Noted Time PHQ-9 Depression Total Score: 0 12/06/19 18 3:00 PM EDT documented as of this encounter Care Teams Cycle Manager Relationship Specialty Start Date End Date Edgar Fournier MD [address] [place] [address] [place] [address] PCP - General 08/18/17 06/23/21 Maile Valles, RN Txp Post Coordinator Transplant Hepatology 11/07/17 Jack Ordoñ[place] [address] [place] [phone] Consulting Physician Transplant Hepatology 01/05/18 Estephania Sharif, DarrianD Pharmacist Pharmacist 11/11/19 documented as of this encounter
--- OUTSIDE RECORDS SUMMARY | 2024-07-12 12:38 | XMS_ITS | Encounter Summary ---
Author Organization [facility] Address [address] [place] [address] Care Team Providers Care Bead Machine Operator Name Role Phone Edgar Fournier MD Primary Care Provider [phone] Maile Valles RN Unavailable Unavail able Jack Ordoñez MD Unavailable [phone] Estephania Sharif PharmD Unavailable Christine vailable [...] release of HIV test results or diagnoses. [id number] Health Encounter Details Date Type Department Care Team (Late st Contact Info) Description 07/03/[address] [facility] Liver Transplant at [facility] 3130 [facility] [address] [place] [address] Anne Whitt MA Social History [...] Hospital Encounter [facility] Interventional Radiology [address] [place] [address] Herve Carrillo MD [address] [place] [address] [place] [address] documented as of this encounter Procedures Procedure Name Priority Date/Time Associated Diagnosis Comments HEPATITIS B,C PROFILE Routine 06/26/2020 HEPATIC FUNCTION PANEL Routine 06/26/2020 IRON AND TIBC Routine 06/26/2020 MAGNESIUM Routine 06/26/2020 RENAL FUNCTION PANEL W/O EGFR Routine 06/26/2020 documented in this encounter Results * Magnesium (06/26/2020) Magnesium 2.1 1.6 - 2.4 mg/dL Plasma specimen (specimen) Historical Provider LAB BLOOD ORDERABLES Yoselin l Result * Renal Function Panel w/o EGFR (06/26/2020) Glucose 110 mg/dL Albumin 2.7 Blood specimen (specimen) Historical Provider LAB BLOOD ORDERABLES Yoselin l Result * Iron and TIBC (06/26/2020) Iron 22 TIBC 167 Ferritin 508 Blood specimen (specimen) [facility] Provider MD LAB BLOOD ORDERABLES Yoselin l Result * Hepatitis B,C Profile (06/26/2020) Hep B Surface Ag Positive Blood specimen (specimen) [facility] Provider MD LAB BLOOD ORDERABLES Yoselin l Result * (ABNORMAL) Hepatic Function Panel (06/26/2020) Hemoglobin A1C 5.4 4.0 - 6.0 % Total Protein 5.4(A) 6.4 - 8.2 g/dL Globulin, Total 2.7 A/G Ratio 1 Plasma specimen (specimen) [facility] Provider MD LAB BLOOD ORDERABLES Yoselin l Result documented in this encounter Visit Diagnoses Not on filedocumented in this encounter Additional Health Concerns Assessment Noted Time PHQ-9 Depression Total Score: 0 12/06/19 18 3:00 PM EDT documented as of this encounter Care Teams Bead Machine Operator Relationship Specialty Start Date End Date Edgar Fournier MD [address] [place] [address] PCP - General 08/18/17 06/23/21 Maile Valles, JANA Txp Post Coordinator Transplant Hepatology 11/07/17 Jack Ordoñez MD [facility]5 [place] [address] Consulting Physician Transplant Hepatology 01/05/18 Estephania Sharif, DarrianD Pharmacist Pharmacist 11/11/19 documented as of this encounter
--- OUTSIDE RECORDS SUMMARY | 2024-07-12 12:38 | XMS_ITS | Encounter Summary ---
Author Organization [facility] Address [address] [place] [address] Care Team Providers Care Vascular Specialists Name Role Phone Edgar Fournier MD Primary Care Provider [phone] Maile Valles RN Unavailable Unavail able Jack Ordoñez MD Unavailable [phone] Estephania Sharif PharmD Unavailable Christine vailable [...] release of HIV test results or diagnoses. [id number] Reason for Visit * Reason Comments Medication Refill Encounter Details Date Type Department Care Team (Late st Contact Info) Description 07/03/2020 Refill [facility] Liver Transplant at [facility] 3[address] [facility] [address] [place] [address] Jack Ordoñez MD [address] [place] [address] Social History Tobacco Use Types [...] Encounter [facility] Interventional Radiology [address] [place] [phone] Herve Carrillo MD 3130 [facility] 3[address] [place] [address] documented as of this encounter Visit Diagnoses Not on filedocumented in this encounter Additional Health Concerns Assessment Noted Time PHQ-9 Depression Total Score: 0 12/06/19 18 3:00 PM EDT documented as of this encounter Care Teams Vascular Specialists Relationship Specialty Start Date End Date Edgar Fournier MD [address] [place] [address] [place] [address] PCP - General 08/18/17 06/23/21 Maile Valles, JANA Txp Post Coordinator Transplant Hepatology 11/07/17 Jack Ordoñez MD [address] [place] [phone] Consulting Physician Transplant Hepatology 01/05/18 Estephania Sharif, DarrianD Pharmacist Pharmacist 11/11/19 documented as of this encounter
--- OUTSIDE RECORDS SUMMARY | 2024-07-12 12:38 | XMS_ITS | Encounter Summary ---
Author Organization [facility] Address [address] [place] [address] Care Team Providers Care Amortization Schedule Clerk Name Role Phone Edgar Fournier MD Primary Care Provider [phone] Maile Valles RN Unavailable Unavail able Jack Ordoñez MD Unavailable [phone] Estephania Sharif PharmD Unavailable Christine vailable [...] release of HIV test results or diagnoses. [id number] Reason for Visit * Auth/Cert Specialty Diagnoses / Procedures Referred By Contac t Referred To Contact Transplant Diagnoses VERTEBRAL OSTEOMYELITIS [address] [place] [address] Phone: tel: Referral ID Status Reason Start Date Expiration Date Visits Re quested Visits Authorized [id number] 1 1 Encounter Details Date Type Department Care Team (Latest Contact Info) Description 07/14/2020 7:47 PM EST - 07/20/2020 6:02 PM EST Hospital Encounter [address] [place] [id number] Rene Ewing MD [address] [place] [address] Addison Mendoza MD [address] [place] [address] Other chronic osteomyelitis, unspecified site (CMS-HCC) (Primary Dx); Vertebral osteomyelitis (CMS-HCC); ESRD (end stage renal disease) (CMS-HCC); Hyperkalemia; Liver transplant status (CMS-HCC) Discharge Disposition: Home WITH Home Health Care [...] Sign Reading Time Taken Comments Blood Pressure 155/75 07/20/2020 5:37 PM EST Pulse 91 07/20/2020 5:37 PM EST Temperature 36.6 ??C (97.8 ??F) 07/20/2020 5:37 PM ES T Respiratory Rate 18 07/20/2020 5:37 PM EST Oxygen Saturation 96% 07/20/2020 5:37 PM EST Inhaled Oxygen Concentration 96% 07/20/2020 5 :37 PM EST Weight 121.6 kg (268 lb) 07/14/2020 7:54 PM EST Height 170.2 cm (5' 7 ) 07/14/2020 7:54 PM EST Body Mass Index 41.97 07/14/2020 7:54 PM EST documented in this encounter Discharge Summaries * Linda Magaña, CM - 07/20/2020 3:20 PM EST [facility] Projector Booth Operator/Intelligence Director Discharge Summary Patient name: Leoncio Rollins Jr. Patient : 1975 Age: 45 y.o. Gender: male Patient emergency contact: Extended Emergency Contact Information Primary Emergency Contact: Kym Rollins Address: [address] [place] [address] [employer] [place] [address] [facility] Mobile Relation: Spouse Secondary Emergency Contact: EhKimberly [facility] Relation: Mother Attending provider: Addison Vaca* Primary care physician: Edgar Fournier MD The MD has indicated that the patient is ready for discharge. Leoncio Rollins Jr. was referred and accepted at [facility] out patient IV therapy [place] [address] and Home PT/OT [facility] - [phone] . The patient will be transported by at 4pm per . Transfer Mode/Level of Care: Family DC Summary and VIMAL have been faxed to facility. YES The plan has been reviewed: YES Patient/Family Informed of Discharge Plan: Yes Plan Reviewed With Patient, Family, or Significant Other: Yes Patient and or family are aware and in agreement with the discharge plan: Yes Family Member Name and Relationship Notified at Discharge: Kym Rollins (Spouse) Family Contact Number: [phone] (M) Plan reviewed with and other members of the health care team: Yes Care Plan Completed: Yes No further CM/SW needs.YES This plan has been reviewed with the multi-disciplinary team. YES Treatment Preferences Treatment Preferences: Distance Post-Discharge Goals Patient's Post-Discharge goals: HOME Post Acute Care Provider Information: DIALYSIS: Dialysis solution from [facility], [phone] in [facility] on [address] Community Services at Discharge Community Services at Home post discharge: Home Health Care, Infusion Home Health Care Name/Phone # post discharge: [employer] [phone] fax= [phone] Home Health Services Types at Discharge: IV Therapy/ABX Infusion Company Name/Phone # post discharge: [facility] OUT PATIENT IV THERAPY :[phone] Pending Labs & Dialysis Information: Pending Lab Results None Dialysis Order (48h ago, onward) Ordered Start 07/20/20 1322 IP Hemodialysis orders/machine parameters - Q Mon - MON (Hemodialysis orders (single select)) Every Comments: In an event of an interruption, due to the time required to safely flush the lines/strip and change the dialyzer/tubing to restart the therapy, modification of treatment duration within 15 minutes or less of the prescribed time due to technical or patient related reasons are deemed acceptable and is implied in this order set. Ordering Provider: Kenya Diop MD Question Answer Comment Diagnosis End stage renal disease Duration of treatment (hours) 3 Dialyzer F180NR BFR 350 mL/min DFR 800 mL/min Dialysate Temperature (C) 36 K+ Sliding Scale Potassium Ca++ 2.5 mEq Bicarb 35 mEq Na+ Other (please specify) 138 Dry Weight/Fluid Removal Goal (Liters) UF 2-3L as tolerated, keep SBP >100 Hepatitis B Surfaces Antigen (HBsAg) Resulted in Last 30 days? See Below Yes 07/22/20 0900 07/15/20 0958 IP Hemodialysis orders/machine parameters - Q MON - MON - MON (Hemodialysis orders (single select)) Every , Status: Canceled Comments: In an event of an interruption, due to the time required to safely flush the lines/strip and change the dialyzer/tubing to restart the therapy, modification of treatment duration within 15 minutes or less of the prescribed time due to technical or patient related reasons are deemed acceptable and is implied in this order set. Ordering Provider: Luis Alberto Alcantar MD Question Answer Comment Diagnosis End stage renal disease Duration of treatment (hours) 3 Dialyzer F180NR BFR 350 mL/min DFR 800 mL/min Dialysate Temperature (C) 36 K+ Sliding Scale Potassium Ca++ 2.5 mEq Bicarb 35 mEq Na+ Other (please specify) 138 Dry Weight/Fluid Removal Goal (Liters) UF 1-2L as tolerated, keep SBP >100 Hepatitis B Surfaces Antigen (HBsAg) Resulted in Last 30 days? See Below Yes 07/15/20 0959 [facility] PreTreatment (last 720 hours) [facility] Pre-Treatment Row Name 07/20/20 1200 07/17/20 0700 07/15/20 1200 Technical Checks Location Acute Room Acute Room Acute Room Room / POD 6 242 3 Prescribed Treatment Time (minutes) 180 180 180 Machine Number [id number] -- Chlorine /Chloramine Negative Yes Yes Yes Alarms Verified Yes Yes Yes NVL Enabled Yes Yes Yes Independent Dialysate check done Yes Yes Yes Dialysate pH 7.2 7.1 7.2 Dialysate Temperature 96.8 ??F (36 ??C) 96.8 ??F (36 ??C) 96.8 ??F (36 ??C) Machine Conductivity 14.1 13.9 13.6 Meter Conductivity 14.1 13.8 13.7 Time-Out Correct Patient? Yes Yes Yes What Procedure? hd hd hd Correct Procedure? Yes Yes Yes Consents Verified? Yes Yes Yes Lab Results Available? Yes Yes No Hep B Core Total Ab negative negative unknown Lab Status Labs resulted Labs resulted Labs sent HB Core Total Ab last drawn 07/15/20 07/15/20 07/15/20 Hep B Surface Ab positive positive unknown Lab Status Labs resulted Labs resulted Labs sent HBsAB last drawn 07/15/20 07/15/20 07/15/20 Hepatitis B Surface Ag positive positive unknown Lab Status Labs resulted Labs resulted Labs sent HBsAG last drawn 07/15/20 07/15/20 07/15/20 Name of Clinician entering information Harish Hernandez Assessment Data (last 720 hours) HD Pre-Treatment Row Name 07/20/20 1245 07/20/20 1207 07/17/20 0735 Technical Checks Location -- -- -- Pre- Assessment Level of Consciousness Alert -- Alert Temp 97.5 ??F (36.4 ??C) -- 97.8 ??F (36.6 ??C) Temp src Skin -- Skin Respiratory Bilateral Breath Sounds Diminished -- Clear;Diminished Edema Edema Right lower extremity;Left lower extremity -- Right lower extremity;Left lower extremity Cardiac Cardiac (WDL) -- -- WDL Cardiac Regularity Regular -- -- Dialysate Composition Potassium (mEq/L) 3 -- 2 Calcium (mEq/L) 2.5 -- 2.5 Sodium (mEq/L) 138 -- 138 Bicarbonate (mEq/L) 35 -- 35 Treatment Initiation Connections Secured Yes -- Yes Saline line double clamped Yes -- Yes Hemo-Safe applied Yes -- Yes Needle Size 15g -- 15g Assessment Data (last 720 hours) HD Treatment Row Name 07/20/20 1500 07/20/20 1445 07/20/20 1430 Hemodialysis Intra - treatment BP (!) 179/98 (!) 185/94 (!) 186/93 Pulse 73 76 77 Blood Flow Rate (mL/min) 350 mL/min 350 mL/min 350 mL/min Dialysate Temperature 96.8 ??F (36 ??C) 96.8 ??F (36 ??C) 96.8 ??F (36 ??C) Dialysate Flow Rate (mL/min) 700 ml/min 700 ml/min 700 ml/min Arterial Pressure (mmHg) -104 mmHg -104 mmHg -101 mmHg Venous Pressure (mmHg) 186 mmHg 188 mmHg 189 mmHg Transmembrane Pressure (mmHg) 64 mmHg 64 mmHg 65 mmHg Conductivity (mS/cm) 14.1 mS/cm 14.1 mS/cm 13.6 mS/cm Ultrafiltration Rate (mL/hr) 1040 mL/hr 1040 mL/hr 1040 mL/hr Ultrafiltration Total (ml) 2160 mL 1897 mL 1645 mL Total Liters Processed (L) 36.1 Liters 31.02 Liters 26.12 Liters Access and face visible Yes Yes Yes Arteriovenous Lines Secure Yes Yes Yes Air detector engaged Yes Yes Yes Hemosafe Clip On Yes Yes Yes NVL Alarm engaged Yes Yes Yes Treatment Comments VSS;denies needs at this time VSS;denies needs at this time VSS;denies needs at this time Row Name 07/20/20 1415 07/20/20 1400 07/20/20 1345 Hemodialysis Intra - treatment BP 176/81 168/80 -- Pulse 77 77 -- Blood Flow Rate (mL/min) 350 mL/min 350 mL/min 350 mL/min Dialysate Temperature 96.8 ??F (36 ??C) 96.8 ??F (36 ??C) 96.8 ??F (36 ??C) Dialysate Flow Rate (mL/min) 700 ml/min 700 ml/min 700 ml/min Arterial Pressure (mmHg) -111 mmHg -99 mmHg -102 mmHg Venous Pressure (mmHg) 194 mmHg 200 mmHg 183 mmHg Transmembrane Pressure (mmHg) 54 mmHg 63 mmHg 61 mmHg Conductivity (mS/cm) 14.1 mS/cm 14.2 mS/cm 15.6 mS/cm Ultrafiltration Rate (mL/hr) 0 mL/hr 1040 mL/hr 1040 mL/hr Ultrafiltration Total (ml) 1383 mL 1130 mL 869 mL Total Liters Processed (L) 21.04 Liters 19.77 Liters 14.75 Liters Access and face visible Yes Yes Yes Arteriovenous Lines Secure Yes Yes Yes Air detector engaged Yes Yes Yes Hemosafe Clip On Yes Yes Yes NVL Alarm engaged Yes Yes Yes Treatment Comments VSS;denies needs at this time VSS;denies needs at this time denies needs at thistime Row Name 07/20/20 1330 07/20/20 1315 07/20/20 1300 Hemodialysis Intra - treatment BP 158/76 -- 161/81 Pulse 69 -- 69 Blood Flow Rate (mL/min) 300 mL/min 340 mL/min 340 mL/min Dialysate Temperature 96.8 ??F (36 ??C) 97 ??F (36.1 ??C) 96.8 ??F (36 ??C) Dialysate Flow Rate (mL/min) 700 ml/min 700 ml/min 700 ml/min Arterial Pressure (mmHg) -81 mmHg -93 mmHg -85 mmHg Venous Pressure (mmHg) 316 mmHg 309 mmHg 238 mmHg Transmembrane Pressure (mmHg) 76 mmHg 73 mmHg 65 mmHg Conductivity (mS/cm) 15.6 mS/cm 15.6 mS/cm 14.2 mS/cm Ultrafiltration Rate (mL/hr) 1030 mL/hr 1030 mL/hr 1030 mL/hr Ultrafiltration Total (ml) 619 mL 365 mL 113 mL Total Liters Processed (L) 10.46 Liters 6.02 Liters 1.24 Liters Access and face visible Yes Yes Yes Arteriovenous Lines Secure Yes Yes Yes Air detector engaged Yes Yes Yes Hemosafe Clip On Yes Yes Yes NVL Alarm engaged Yes Yes Yes Treatment Comments VSS;denies needs at this time denies needs at this time VSS;denies needs at thistime Row Name 07/20/20 1245 07/17/20 1045 07/17/20 1030 Hemodialysis Intra - treatment BP 153/84 167/80 173/78 Pulse 76 93 89 Blood Flow Rate (mL/min) 450 mL/min 350 mL/min 350 mL/min Dialysate Temperature 98.4 ??F (36.9 ??C) 98.6 ??F (37 ??C) 98.4 ??F (36.9 ??C) Dialysate Flow Rate (mL/min) 700 ml/min 800 ml/min 800 ml/min Arterial Pressure (mmHg) 50 mmHg -113 mmHg -108 mmHg Venous Pressure (mmHg) 27 mmHg 148 mmHg 189 mmHg Transmembrane Pressure (mmHg) 202 mmHg 92 mmHg 60 mmHg Conductivity (mS/cm) 14.3 mS/cm 13.7 mS/cm 15.5 mS/cm Ultrafiltration Rate (mL/hr) 0 mL/hr 2580 mL/hr 800 mL/hr Ultrafiltration Total (ml) 0 mL 2387 mL 2181 mL Total Liters Processed (L) 0 Liters 58.66 Liters 53.73 Liters Access and face visible -- Yes Yes Arteriovenous Lines Secure -- Yes Yes Air detector engaged -- Yes Yes Hemosafe Clip On -- Yes Yes NVL Alarm engaged -- Yes Yes Treatment Comments -- treatment terminated VSS;denies needs at this time Row Name 07/17/20 1015 07/17/20 1000 07/17/20 0945 Hemodialysis Intra - treatment BP 165/79 157/79 163/82 Pulse 89 85 89 Blood Flow Rate (mL/min) 350 mL/min 350 mL/min 350 mL/min Dialysate Temperature 98.8 ??F (37.1 ??C) 98.4 ??F (36.9 ??C) 98.8 ??F (37.1 ??C) Dialysate Flow Rate (mL/min) 800 ml/min 800 ml/min 800 ml/min Arterial Pressure (mmHg) -107 mmHg -108 mmHg -112 mmHg Venous Pressure (mmHg) 195 mmHg 165 mmHg 156 mmHg Transmembrane Pressure (mmHg) 62 mmHg 60 mmHg 58 mmHg Conductivity (mS/cm) 13.7 mS/cm 15 mS/cm 13.7 mS/cm Ultrafiltration Rate (mL/hr) 800 mL/hr 800 mL/hr 800 mL/hr Ultrafiltration Total (ml) 1981 mL 1785 mL 1584 mL Total Liters Processed (L) 48.67 Liters 43.72 Liters 38.66 Liters Access and face visible Yes Yes Yes Arteriovenous Lines Secure Yes Yes Yes Air detector engaged Yes Yes Yes Hemosafe Clip On Yes Yes Yes NVL Alarm engaged Yes Yes Yes Treatment Comments VSS;denies needs at this time VSS;denies needs at this time VSS;denies needs at this time Row Name 07/17/20 0930 07/17/20 0915 07/17/20 0900 Hemodialysis Intra - treatment BP 148/76 149/75 134/68 Pulse 83 83 87 Blood Flow Rate (mL/min) 350 mL/min 350 mL/min 350 mL/min Dialysate Temperature 98.6 ??F (37 ??C) 98.4 ??F (36.9 ??C) 98.6 ??F (37 ??C) Dialysate Flow Rate (mL/min) 800 ml/min 800 ml/min 800 ml/min Arterial Pressure (mmHg) -112 mmHg -112 mmHg -115 mmHg Venous Pressure (mmHg) 156 mmHg 154 mmHg 153 mmHg Transmembrane Pressure (mmHg) 57 mmHg 57 mmHg 57 mmHg Conductivity (mS/cm) 13.7 mS/cm 13.8 mS/cm 15.5 mS/cm Ultrafiltration Rate (mL/hr) 800 mL/hr 800 mL/hr 800 mL/hr Ultrafiltration Total (ml) 1389 mL 1188 mL 992 mL Total Liters Processed (L) 33.71 Liters 28.65 Liters 24.86 Liters Access and face visible Yes Yes Yes Arteriovenous Lines Secure Yes Yes Yes Air detector engaged Yes Yes Yes Hemosafe Clip On Yes Yes Yes NVL Alarm engaged Yes Yes Yes Treatment Comments VSS;denies needs at this time VSS;denies needs at this time VSS;denies needs at this time Row Name 07/17/20 0845 07/17/20 0830 07/17/20 0815 Hemodialysis Intra - treatment BP 127/67 126/63 147/73 Pulse 89 95 83 Blood Flow Rate (mL/min) 350 mL/min 350 mL/min 350 mL/min Dialysate Temperature 98.6 ??F (37 ??C) 98.1 ??F (36.7 ??C) 98.6 ??F (37 ??C) Dialysate Flow Rate (mL/min) 800 ml/min 800 ml/min 700 ml/min Arterial Pressure (mmHg) -115 mmHg -114 mmHg -109 mmHg Venous Pressure (mmHg) 153 mmHg 153 mmHg 154 mmHg Transmembrane Pressure (mmHg) 57 mmHg 58 mmHg 59 mmHg Conductivity (mS/cm) 13.8 mS/cm 15.5 mS/cm 13.8 mS/cm Ultrafiltration Rate (mL/hr) 800 mL/hr 800 mL/hr 800 mL/hr Ultrafiltration Total (ml) 792 mL 596 mL 400 mL Total Liters Processed (L) 19.81 Liters 14.88 Liters 9.94 Liters Access and face visible Yes Yes Yes Arteriovenous Lines Secure Yes Yes Yes Air detector engaged Yes Yes Yes Hemosafe Clip On Yes Yes Yes NVL Alarm engaged Yes Yes Yes Treatment Comments VSS VSS;denies needs at this time VSS;denies needs at this time Row Name 07/17/20 0800 07/17/20 0745 07/17/20 0735 Hemodialysis Intra - treatment BP 159/78 148/79 156/83 Pulse 85 81 82 Blood Flow Rate (mL/min) 350 mL/min 355 mL/min 135 mL/min Dialysate Temperature 98.4 ??F (36.9 ??C) 98.6 ??F (37 ??C) 95.9 ??F (35.5 ??C) Dialysate Flow Rate (mL/min) 700 ml/min 700 ml/min 700 ml/min Arterial Pressure (mmHg) -101 mmHg -102 mmHg 51 mmHg Venous Pressure (mmHg) 165 mmHg 114 mmHg 50 mmHg Transmembrane Pressure (mmHg) 57 mmHg 32 mmHg 24 mmHg Conductivity (mS/cm) 13.8 mS/cm 13.8 mS/cm 13.7 mS/cm Ultrafiltration Rate (mL/hr) 800 mL/hr 800 mL/hr 0 mL/hr Ultrafiltration Total (ml) 199 mL 4 mL 0 mL Total Liters Processed (L) 4.87 Liters 0 Liters 0 Liters Access and face visible Yes Yes -- Arteriovenous Lines Secure Yes Yes -- Air detector engaged Yes Yes -- Hemosafe Clip On Yes Yes -- NVL Alarm engaged Yes Yes -- Treatment Comments VSS;denies needs at this time VSS;denies needs at this time -- Row Name 07/15/20 1530 07/15/20 1515 07/15/20 1500 Hemodialysis Intra - treatment BP 198/90 197/84 (!) 211/85 Pulse 92 92 91 Blood Flow Rate (mL/min) 200 mL/min 200 mL/min 200 mL/min Dialysate Temperature 96.8 ??F (36 ??C) 91.9 ??F (33.3 ??C) 91.8 ??F (33.2 ??C) Dialysate Flow Rate (mL/min) 500 ml/min 0 ml/min 0 ml/min Arterial Pressure (mmHg) -1 mmHg -1 mmHg -1 mmHg Venous Pressure (mmHg) -5 mmHg -5 mmHg -5 mmHg Transmembrane Pressure (mmHg) 153 mmHg 50 mmHg 50 mmHg Conductivity (mS/cm) 14.2 mS/cm 14.2 mS/cm 14.2 mS/cm Ultrafiltration Rate (mL/hr) 0 mL/hr 0 mL/hr 0 mL/hr Ultrafiltration Total (ml) 0 mL 0 mL 0 mL Total Liters Processed (L) 0 Liters 0 Liters 0 Liters Access and face visible Yes Yes Yes Arteriovenous Lines Secure Yes Yes Yes Air detector engaged Yes Yes Yes Hemosafe Clip On Yes Yes Yes NVL Alarm engaged Yes Yes Yes Treatment Comments denies needs at this time;treatment terminated pt is asymptomatic from high BP denies needs at this time denies needs at this time pt asymptomatic Row Name 07/15/20 1445 07/15/20 1430 07/15/20 1415 Hemodialysis Intra - treatment BP (!) 211/86 183/89 (!) 205/95 Pulse 89 89 86 Blood Flow Rate (mL/min) 200 mL/min 200 mL/min 200 mL/min Dialysate Temperature 91.8 ??F (33.2 ??C) 91.8 ??F (33.2 ??C) 91.6 ??F (33.1 ??C) Dialysate Flow Rate (mL/min) 0 ml/min 0 ml/min 0 ml/min Arterial Pressure (mmHg) -2 mmHg -2 mmHg -1 mmHg Venous Pressure (mmHg) -5 mmHg -5 mmHg -5 mmHg Transmembrane Pressure (mmHg) 50 mmHg 50 mmHg 50 mmHg Conductivity (mS/cm) 14.2 mS/cm 14.2 mS/cm 14.2 mS/cm Ultrafiltration Rate (mL/hr) 0 mL/hr 0 mL/hr 0 mL/hr Ultrafiltration Total (ml) 0 mL 0 mL 0 mL Total Liters Processed (L) 0 Liters 0 Liters 0 Liters Access and face visible Yes Yes Yes Arteriovenous Lines Secure Yes Yes Yes Air detector engaged Yes Yes Yes Hemosafe Clip On Yes Yes Yes NVL Alarm engaged Yes Yes Yes Treatment Comments denies needs at this time VSS;denies needs at this time denies needs at this time Row Name 07/15/20 1400 07/15/20 1345 07/15/20 1330 Hemodialysis Intra - treatment BP (!) 203/96 199/88 (!) 191/94 Pulse 85 80 80 Blood Flow Rate (mL/min) 200 mL/min 200 mL/min 200 mL/min Dialysate Temperature 91.6 ??F (33.1 ??C) 91.6 ??F (33.1 ??C) 91.6 ??F (33.1 ??C) Dialysate Flow Rate (mL/min) 0 ml/min 0 ml/min 0 ml/min Arterial Pressure (mmHg) -1 mmHg -1 mmHg -1 mmHg Venous Pressure (mmHg) -5 mmHg -5 mmHg -5 mmHg Transmembrane Pressure (mmHg) 50 mmHg 50 mmHg 55 mmHg Conductivity (mS/cm) 14.2 mS/cm 14.2 mS/cm 14.2 mS/cm Ultrafiltration Rate (mL/hr) 0 mL/hr 0 mL/hr 0 mL/hr Ultrafiltration Total (ml) 0 mL 0 mL 0 mL Total Liters Processed (L) 0 Liters 0 Liters 0 Liters Access and face visible Yes Yes Yes Arteriovenous Lines Secure Yes Yes Yes Air detector engaged Yes Yes Yes Hemosafe Clip On Yes Yes Yes NVL Alarm engaged Yes Yes Yes Treatment Comments denies needs at this time denies needs at this time denies needs at this time Row Name 07/15/20 1315 07/15/20 1230 Hemodialysis Intra - treatment BP (!) 205/85 (!) 204/96 Pulse 86 81 Blood Flow Rate (mL/min) 200 mL/min 200 mL/min Dialysate Temperature 91.8 ??F (33.2 ??C) 91.4 ??F (33 ??C) Dialysate Flow Rate (mL/min) 0 ml/min 0 ml/min Arterial Pressure (mmHg) -1 mmHg -2 mmHg Venous Pressure (mmHg) -5 mmHg -5 mmHg Transmembrane Pressure (mmHg) 55 mmHg 55 mmHg Conductivity (mS/cm) 14.2 mS/cm 14.2 mS/cm Ultrafiltration Rate (mL/hr) 0 mL/hr 0 mL/hr Ultrafiltration Total (ml) 0 mL 0 mL Total Liters Processed (L) 0 Liters 0 Liters Access and face visible Yes -- Arteriovenous Lines Secure Yes -- Air detector engaged Yes -- Hemosafe Clip On Yes -- NVL Alarm engaged Yes -- Treatment Comments denies needs at this time -- Assessment Data (last 720 hours) HD Post-Treatment Row Name 07/17/20 1045 07/15/20 1530 Post-Hemodialysis Assessment Post-Treatment procedures Blood returned Blood returned Prescribed Treatment Time (minutes) 180 180 Duration of Treatment (minutes) 180 minutes 180 minutes Dialyzer Clearance Lightly streaked Lightly streaked Rinseback Volume (mL) 400 mL 400 mL Hemodialysis Output (mL) 2400 mL 2300 mL Net fluid removal (ml) 2000 mL 1900 mL Temp 97.8 ??F (36.6 ??C) 97.8 ??F (36.6 ??C) Temp src Skin Skin Resp 16 20 Hemodialysis Weights Dry Weight 273 lb 5.9 oz (124 kg) per pt -- UF 1-2L Fluid removal goal 1999 1999 Last Treatment Post Weight 281 lb 4.9 oz (127.6 kg) -- Pre Weight 281 lb 4.9 oz (127.6 kg) 285 lb 7.9 oz (129.5 kg) Pre Weight Source Bed Scale Weight Bed Scale Weight Post Weight 276 lb 14.4 oz (125.6 kg) 281 lb 4.9 oz (127.6 kg) Post Weight Source Bed Scale Weight Bed Scale Weight Respiratory Respiratory (WDL) -- WDL Bilateral Breath Sounds Clear;Diminished -- Edema Edema Right lower extremity;Left lower extremity Generalized Cardiac Cardiac (WDL) WDL WDL Linda Magaña RN Care Conventional Mortgage Underwriter /Care Management Dept [facility] [phone] * Addison Mendoza MD - 07/20/2020 8:17 AM EST [facility] Department of Internal Medicine Inpatient Discharge Summary Patient: Leoncio Rollins Jr. [facility]: [id number] Date of Admission: 07/14/2020 Date of Discharge: 07/20/2020 Attending Physician: Addison Vaca* Diagnoses Present on Admission Past Medical History: [...] ??? Sleep apnea ??? Vitamin D deficiency Discharge Diagnoses Active Hospital Problems Diagnosis Date Noted ??? Osteomyelitis (CMS Dx) [M86.9] 05/28/2020 ??? Vertebral osteomyelitis (CMS Dx) [M46.20] 07/16/2020 Resolved Hospital Problems No resolved problems to display. Operations/Procedures Performed (include dates) Surgeries: Lines/Drains/Airways: Patient Lines/Drains/Airways Status Active Line / PIV Line Name: Placement date: Placement time: Site: Days: Hemodialysis Access Arteriovenous Fistula Left Forearm -- -- Forearm Peripheral IV 07/19/20 Right Antecubital 07/19/20 1707 Antecubital less than 1 NHSN Device Days (06/20/2020 to 07/19/2020) Central line: 0 Urinary catheter: 0 Notable Imaging Studies: X-ray Comparison Images Result Date: 07/14/2020 Images associated with this accession number were presented to us for comparison to an examination performed here. Other Procedures: 1. None Consulting Services (include reason) 1. Nephrology Allergies Codeine Sulfate Codeine Discharge Medications Medication List TAKE these medications, which are NEW Quantity/Refills cloNIDine HCL 0.1 MG tablet Commonly known as: CATAPRES Take 1 tablet (0.1 mg total) by mouth 2 times a day. Quantity: 60 tablet Refills: 0 levoFLOXacin 500 MG tablet Commonly known as: LEVAQUIN Take 0.5 tablets (250 mg total) by mouth at bedtime. Start taking on: July 21, 2020 Quantity: 25 tablet Refills: 0 lidocaine 5 % Commonly known as: LIDODERM Place 1 patch onto the skin daily. Apply patch for 12 hours and then remove patch and leave off for12 hours. Quantity: 30 patch Refills: 0 TAKE these medications, which you [...] Quantity: 150 strip Refills: 5 blood-glucose meter [facility] Commonly known as: OneTouch Verio Meter Use as instructed. Quantity: 1 each Refills: 0 carBAMazepine 200 mg tablet Commonly known as: TEGRETOL Take 200 mg by mouth at bedtime. Refills: 0 cycloSPORINE modified 25 MG capsule Generic drug: cycloSPORINE modified Take 4 capsules (100 mg total) by mouth 2 times a day. Quantity: 240 capsule Refills: 5 doxazosin 8 MG tablet Commonly known as: CARDURA 8 mg at bedtime. Refills: 0 entecavir 0.5 MG tablet Commonly known as: BARACLUDE Take 1 tablet (0.5 mg total) by mouth every 7 days. Quantity: 4 tablet Refills: 5 fluticasone propionate 50 mcg/actuation nasal spray Commonly known as: FLONASE Use into each nostril. Refills: 0 gabapentin 100 MG capsule Commonly [...] 8 hours. Quantity: 120 tablet Refills: 0 lancets 33 gauge Mis Commonly known as: OneTouch Delica Lancets Use 1 strip as directed 4 times daily before meals and at bedtime. Quantity: 150 each Refills: 5 melatonin 3 mg Tab Take 2 tablets (6 mg total) by mouth at bedtime. Quantity: 30 tablet Refills: 0 methocarbamoL 500 MG tablet Commonly known as: ROBAXIN Take 1 tablet (500 mg total) by mouth 4 times daily before meals and at bedtime. Quantity: 120 tablet Refills: 0 metoprolol tartrate 25 MG tablet Commonly known as: LOPRESSOR Take 1 tablet (25 mg total) by mouth 2 times a day. Quantity: 60 tablet Refills: 0 NIFEdipine 90 MG (OSM) 24 hr tablet Commonly known as: PROCARDIA-XL Take 90 mg by mouth 2 times a day. Refills: 0 ondansetron 4 MG disintegrating tablet Commonly known as: ZOFRAN-ODT every 8 hours as needed. Refills: 0 pantoprazole 40 MG tablet Commonly known as: PROTONIX Take 1 tablet (40 mg total) by mouth daily. Quantity: 30 tablet Refills: 0 pen needle, diabetic 32 gauge x /32 Ndle Use as directed to inject insulin 4 times daily. Quantity: 150 each Refills: 5 polyethylene glycol 17 gram packet Commonly known as: MIRALAX Take 17 g by mouth daily as needed (mild constipation (no BM for 24 hrs)). Quantity: 14 packet Refills: 0 QUEtiapine 25 MG tablet Commonly known as: SEROQUEL Take 0.5 tablets (12.5 mg total) by mouth at bedtime. Quantity: 15 tablet Refills: 0 Vitamin D2 1,250 mcg (50,000 unit) capsule Generic drug: ergocalciferol Take 50,000 Units by mouth every Monday, , and Monday. Twice a week Refills: 0 STOP taking these medications famotidine 20 MG tablet Commonly known as: PEPCID lidocaine-prilocaine cream Commonly known as: EMLA vancomycin IVPB (Outpatient / Ambulatory) Commonly known as: VANCOCIN Where to Get Your Medications These medications were sent to [address] [address] ?? cloNIDine HCL 0.1 MG tablet ?? levoFLOXacin 500 MG tablet ?? lidocaine 5 % Reason for Admission Leoncio Rollins Jr. is a 45 y.o. male with a history of ESRD on home hemodialysis, SAL cirrhosis s/p liver transplant in 2018, pHTN, JC, DM, epidural abscess, and lumbar osteomyelitis presenting to the hospital with back pain. Patient was admitted to in May for osteomyelitis and epidural abs cess with discitis. Originally on Cefepime and Vancomycin, transplant ID discontinued the Cefepime after fluid aspiration showing GPC in pairs but no growth after 3 days. Believed that osteomyelitis/epidural abscess is likely??secondary to previously identified MRSE??(04/29 lumbar spine wound culture). He was discharged to [place] on Vancomycin (05/28/2020-07/22/2020) however left AMA Hospital Course By Problem #Osteomyelitis with low back/Lower Extremity Pain Patient with recent spinal surgery for epidural abscess in 04/[address] guided fluid aspiration??through IR which was done 06/03 with??2 mL of purulent fluid. No drainable abscess at this time per CT as well as with the exam and laboratory values. His ESR was stable and CRP was much better. No fevers and he did not have much pain in the lower back on admission. He was continued on Vancomycin during the hospitalization. Pain was managed with oxycodone and lidocaine patch. Was getting PT and improving. Patient did not want to go to IP rehab and wanted to go home. Hence plan was made to get Dalbavancin 1500mg IV weekly x2 with levofloxcin 250 mg daily for 6-8 weeks. He is to come to infusion center for his Dalbavancin. #ESRD on HD Patient does home HD 5 days a week. He received dialysis Monday, Monday, Monday during the admission. #SAL Cirrhosis s/p liver transplant 2017 Home regimen: Cyclosporine 100 mg BID and Cellcept. Cellcept held on 05/29/2020 by hepatology in the setting of infection and Cyclosporine was continued. Hep B positive liver donor, on lifelong Entacavir. MELD score of 22 on 06/08. - Entecavir 0.5 mg weekly - Cyclosporin 100 mg BID, follow up cyclosporin level. - Cellcept held. ?? #Anemia; History of anemia, requiring blood transfusion, secondary to variceal bleeding.. He received 2 unitsof blood during the admission. ?? #Pulmonary Hypertension On echo 07/2019 - PAP estimated to be 50 mmg Hg, likely due to JC/OHS, not compliant with BiPAP/CPAP. Had an appointment with Dr. Biswas 07/01/2020, it appears he did follow up with her. - Avoid rapid fluid shifts ?? #Type 2 Diabetes Mellitus HbA1c 06/26 was 5.4. Improved from 7.4 in 12/2018. Patient reports he takes Humulin PRN at home. - Gabapentin 100 mg BID, Carbamazepime 200 mg daily D/c to home on his home meds. Condition on Discharge 1. Functional Status: Normal 2. Mental Status: Normal 3. Diet / Tube Feeding / TPN: Diet Orders Diet renal starting at 07/14 2031 As listed above 4. Respiratory / Lines & Tubes / Wounds: None required 5. Discharge Physical Exam: BP 155/80 (BP Location: Right arm, Patient Position: Lying) Pulse 87 Temp 98.1 ??F (36.7 ??C) (Oral) Resp 16 Ht 5' 7 (1.702 m) Wt (!) 268 lb (121.6 kg) SpO2 98% BMI 41.97 kg/m?? Physical Exam Constitutional: General: He is not in acute distress. Appearance: He is obese. HENT: Head: Normocephalic and atraumatic. Nose: Nose normal. Mouth/Throat: Mouth: Mucous membranes are moist. Eyes: General: No scleral icterus. Extraocular Movements: Extraocular movements intact. Conjunctiva/sclera: Conjunctivae normal. Neck: Musculoskeletal: Normal range of motion and neck supple. No neck rigidity. Cardiovascular: Rate and Rhythm: Normal rate and regular rhythm. Pulses: Normal pulses. Heart sounds: No murmur. Pulmonary: Effort: Pulmonary effort is normal. No respiratory distress. Breath sounds: Normal breath sounds. Abdominal: General: Bowel sounds are normal. There is no distension. Palpations: Abdomen is soft. Musculoskeletal: Normal range of motion. General: No swelling or tenderness. Right lower leg: No edema. Left lower leg: No edema. Comments: Non-tender to palpation in the lower back, where the healed incision is Skin: General: Skin is warm and dry. Coloration: Skin is not pale. Findings: No erythema. Neurological: General: No focal deficit present. Mental Status: He is alert and oriented to person, place, and time. Psychiatric: Mood and Affect: Mood normal. Behavior: Behavior normal. Thought Content: Thought content normal. Disposition Home with assistance Follow-Up Appointments Future Appointments Date Time Provider Department Center 07/21/2020 9:00 AM CHAIR 08 INF GNI INF GNI UCGNI 08/09/2020 8:55 AM COVID TESTING - [facility] UCP COV BUR BUR 08/11/2020 10:30 AM LIVER FELLOW ENDO None 09/09/2020 12:00 PM Ravi Biswas MD [facility] PULM HOL HOL 09/14/2020 8:35 AM Jack Ordoñez MD LTRA HOX None No follow-up provider specified. Patient Instructions / Follow-Up Items for Receiving Physician Signed: ADDISON MENDOZA MD PhD.FACP Attending Physician Department of Internal Medicine Pager [phone]) 07/20/2020, 8:17 AM * Dav Johnson MD - 07/18/2020 9:10 AM EST Subspecialty Follow-up Appointment Chart Note Service: Infectious Diseases Subspecialty Follow-up Disposition: The patient requires subspecialty follow-up as noted below: Note: This information is for [facility] Scheduling use only. It is not the responsibility of the primaryinpatient service to schedule this appointment. 1. Visit type:Faculty Clinic 2. Name of provider to schedule with: Elizabeth 3. Timing: The appointment should be scheduled in 3 weeks. 4. Location: Any site 5. Ok to overbook if there are no open appointment slots?: No 6. Reason for follow up: vertebral osteomyelitis 45 y.o. M s/p OLT 2018 with ESRD on home HD 5x a week re-admitted for vertebral osteomyelitis afterhaving a lapse in abx related to leaving rehab facility AMA. Home HD makes abx dosing difficult, soopting for a course with Dalbavancin and Cipro. Antibiotics at discharge: Dalbavancin 1500mg IV weekly x2 Levaquin 250mg PO daily, end date 09/08/20 Weekly monitoring labs to be drawn on Mondays and faxed to [facility] attn Dr Johnson [phone] CBC, BMP, ESR, CRP His 2 infusions of Dalbavancin must be set up with [place] (or alternative infusion center) prior to discharge to avoid another lapse in therapy like last time. ID f/u to be arranged with Dr Johnson as above ID will sign off, call with questions, [phone] Dav Johnson MD 07/18/2020 9:05 AM documented in this encounter Discharge Instructions * Discharge Instructions* Linda Magaña CM - 07/20/2020 3:57 PM EST Provider Department Center 07/21/2020 9:00 AM CHAIR [address] [facility] at [facility] Arrive at: [address] [facility] documented in this encounter Medications at Time [...] 03/18/20 22 blood-glucose meter (ONETOUCH VERIO SYSTEM) [facility] Use as instructed. 1 [...] 100 MG capsuleIndications: Other osteonecrosis, left femur ([facility]) Take 1 capsule (100 mg total) by mouth 2 times a day. 90 capsule 0 11/16/19 22 hydrALAZINE (APRESOLINE) 100 MG tablet Take 1 tablet (100 mg total) by mouth every 8 hours. 120 tablet 0 11/09/19 24 insulin NPH isoph U-100 human (HUMULIN N NPH INSULIN KWIKPEN) 100 unit/mL (3 mL) InPnIndications:S/P liver transplant ([facility]),Hyperglyc emia Inject subcutaneously 12 units in the AM and 6 units in the PM. 15 mL 5 0 11/02/19 22 lancets ([employer] LANCETS) 33 gauge Misc Use 1 [...] by mouth daily. 30 tablet 0 03/18/20 pen needle, diabetic 32 gauge x 5/32 Ndle Use as directed to inject insulin 4 times daily. 150 each 5 8 03/18/20 22 QUEtiapine (SEROQUEL) 25 MG tablet Take 0.5 tablets (12.5 mg total) by mouth at bedtime. 15 tablet 0 11/01/19 22 documented as of this encounter Progress Notes * Kenya Diop, - 07/20/2020 1:22 PM EST Images from the original note were not included. Department of Internal Medicine Transplant Nephrology Progress Note Patient: Leoncio Rollins Jr. Assessment and Plan End-Stage Renal Disease on Home Hemodialysis, with electrolyte derangements on admission Access: LUE AVF HD unit: Home Hemo, 5 days/weekly Electrolytes: Na: 139 K: 4.4 Cl: 102 Ma.3 Ca: 8.8 Phos: 9.0 Acid Base Status: Anion Gap: 12 Bicarb: 25 Bone Mineral Disease: Ca: 8.8 PO4: 9.0 Alb: 3.2 PTH: 574.0 on 06/10/2020 Vit D: 15.8 on 01/14/2019 Hemodynamics: Goal <130/80 BP: 161/81 Anemia of Chronic Disease Hgb 7.9 Plt 125 Iron 22 on 06/26/2020 Ferritin 508 on 06/26/2020 TIBC: 167 on 06/26/2020 Goal HgB >7 MEDs: ?? Plan - HD today - UF 2-3L as tolerated. - Monitor urine output closely, strict I/O, daily weights. - Avoid nephrotoxins (NSAIDs, MADAN-I, ARB, Contrast dye) - Daily renal panel with phosphorus level. - Renally dose all medications. Thank you for allowing us to participate in the care of this patient. Case discussed with consult attending. Please do not hesitate to give us a call for any questions. Kenya Diop DO Nephrology Fellow PGY-4 Pager #: [phone] Reason for Consult ESRD on HD. Chief Complaint No chief complaint on file. Interval History Patient was seen this am. BP today: 161/81. Creatinine today is 7.21. Doing well this am. States hefeels better. Medications Current Facility-Administered Medications: ??? acetaminophen (TYLENOL) tablet 650 mg, 650 mg, Oral, Q4H PRN, Sonu Rose DO, 650 mgat 07/20/20 1123 ??? aspirin chewable tablet 81 mg, 81 mg, Oral, Daily with breakfast, Sonu Rose DO, 81mg at 07/20/20804 ??? benzocaine-menthoL (CHLORASEPTIC) 6-10 mg lozenge 1 lozenge, 1 lozenge, Mucous Membrane, TID PRN, Roberta Ogden MD, 1 lozenge at 07/20/20806 ??? carBAMazepine (TEGRETOL) tablet 200 mg, 200 mg, Oral, Nightly (2099), Sonu Rose DO, 200 mg at 07/19/202038 ??? cloNIDine HCL (CATAPRES) tablet 0.1 mg, 0.1 mg, Oral, BID, Addison Mendoza MD, 0.1 mg at 07/20/20806 ??? cycloSPORINE modified (NEORAL) capsule 100 mg, 100 mg, Oral, BID, Sonu Rose DO, 100 mg at 07/20/20806 ??? dextrose 50 % in water (D50W) iv Syrg 25 mL, 25 mL, Intravenous, Q15 Min PRN OR dextrose 50% in water (D50W) iv Syrg 50 mL, 50 mL, Intravenous, Q15 Min PRN, Sonu Rose DO ??? entecavir (BARACLUDE) tablet 0.5 mg, 0.5 mg, Oral, Q7 Days, Sonu Rose DO ??? famotidine (PEPCID) tablet 20 mg, 20 mg, Oral, Daily 0900, Sonu Rose DO, 20 mg at 07/20/20 0806 ??? gabapentin (NEURONTIN) capsule 100 mg, 100 mg, Oral, BID, Sonu Rose DO, 100 mg at 07/20/20 0807 ??? glucose chewable tablet 12 g, 12 g, Oral, Q15 Min PRN, Sonu Rose DO ??? heparin (porcine) injection 5,000 Units, 5,000 Units, Subcutaneous, 3 times per day, Addison Mendoza MD, 5,000 Units at 07/20/20 0432 ??? hydrALAZINE (APRESOLINE) tablet 100 mg, 100 mg, Oral, Q8H, Sonu Rose DO, 100 mg at109/20/19 0431 ??? insulin lispro (humaLOG) injection 0-5 Units, 0-5 Units, Subcutaneous, TID AC, Sonu Rose DO, 1 Units at 07/19/20 1449 ??? lidocaine (LIDODERM) 5 % 1 patch, 1 patch, Transdermal, Q24H, Pete Weaver MD, 1 patch at 07/19/202035 ??? lidocaine (PF) 2% (20 mg/mL) 20 mg/mL (2 %) Soln, , , , ??? melatonin Tab 6 mg, 6 mg, Oral, Nightly (2099), Sonu Rose DO, 6 mg at 07/19/202037 ? ? methocarbamoL (ROBAXIN) tablet 500 mg, 500 mg, Oral, 4x Daily AC & HS, Sonu Rose DO, 500 mg at 07/20/20 1123 ??? metoprolol tartrate (LOPRESSOR) tablet 50 mg, 50 mg, Oral, BID, Addison Mendoza MD, 50 mg at 07/20/20 0807 ??? NIFEdipine (PROCARDIA-XL) 24 hr tablet 90 mg, 90 mg, Oral, BID, Sonu Rose DO, 90 mg at 07/20/20 0806 ??? ondansetron (ZOFRAN) injection 4 mg, 4 mg, Intravenous, Q6H PRN, Addison Mendoza MD, 4 mg at 07/16/20 2254 ??? polyethylene glycol (MIRALAX) packet 17 g, 17 g, Oral, Daily PRN, Sonu Rose, , 17g at 07/15/205 ??? quetiapine (SEROQUEL) half tablet 12.5 mg, 12.5 mg, Oral, Nightly (2099), Sonu Rose, DO, 12.5 mg at 07/19/202037 ??? Place saline lock, , , Once AND sodium chloride flush 10 mL, 10 mL, Intravenous, QS, Sonu Rose DO, 10 mL at 07/20/20 0432 ??? terazosin (HYTRIN) capsule 10 mg, 10 mg, Oral, Nightly (2099), Addison Mendoza MD, 10 mg at 07/19/202104 ??? vancomycin intermittent/pulse dosing PLACEHOLDER ORDER, , Intravenous, UD PRN, Rene Ewing MD ??? wound dressings (TRIAD (Zinc Oxide 20%)) topical paste, , Topical, PRN, Pete Weaver MD Physical Examination Vitals: 07/20/20 1300 BP: 161/81 Pulse: 69 Resp: Temp: SpO2: Patient Vitals for the past 4 hrs: BP Temp Temp src Pulse 07/20/20 1300 161/81 -- -- 69 07/20/20 1245 153/84 97.5 ??F (36.4 ??C) Skin 76 Wt Readings from Last 3 Encounters: 07/14/20 (!) 268 lb (121.6 kg) 06/22/20 (!) 306 lb (138.8 kg) 06/07/20 (!) 251 lb 15.8 oz (114.3 kg) Intake/Output Summary (Last 24 hours) at 07/20/2020 1322 Last data filed at 07/20/2020 0431 Gross per 24 hour Intake 380 ml Output 550 ml Net -170 ml General appearance: NAD, obese Ears: hearing decreased. Neck: Increased neck circumference, trachea midline Lungs: No RD, Heart: RR Abdomen: ND Extremities: 2+ pitting edema LE b/l, slowly improving. Laboratory Date Recent Labs 07/19/20 0515 07/20/20 0729 WBC 3.0* 3.2* HGB 7.5* 7.9* HCT 22.7* 24.8* MCV 88.6 89.2 PLT 106* 125* Recent Labs 07/19/20 0515 NA 139 K 4.4 CL 102 CO2 25 BUN 28* CREATININE 7.21* GLUCOSE 88 CALCIUM 8.8 ANIONGAP 12 Lab Results Component Value Date PTH 574.0 (H) 06/10/2020 CALCIUM 8.8 07/19/2020 PHOS 9.0 (H) 07/15/2020 [id number] 15.8 (L) 01/14/2019 No results for input(s): COLORU, CLARITYU, PH, PROTEINUA, PHUR, LABSPEC, GLUCOSEU, BLOODU, LEUKOCYTESUR, NITRITE, BILIRUBINUR, UROBILINOGEN, RBCUA, WBCUA, BACTERIA, AMORPHOUS, CRYSTAL, CASTS in the last 72 hours. Invalid input(s): KEYTONESU No results for input(s): NAUR, KUR, CLUR in the last 72 hours. Invalid input(s): CO2UR, CRUR No results found for: MICROALBUR, [id number] Lab Results Component Value Date IRON 22 06/26/2020 TIBC 167 06/26/2020 FERRITIN 508 06/26/2020 Lab Results Component Value Date [id number] 499 07/22/2019 Lab Results Component Value Date COLORU Yellow 07/20/2019 CLARITYU Cloudy (A) 07/20/2019 PROTEINUA >=500 (A) 07/20/2019 PHUR 6.0 07/20/2019 LABSPEC 1.017 07/20/2019 GLUCOSEU 150 (A) 07/20/2019 BLOODU Small (A) 07/20/2019 LEUKOCYTESUR Negative 07/20/2019 NITRITE Negative 07/20/2019 BILIRUBINUR Negative 07/20/2019 UROBILINOGEN <2.0 07/20/2019 RBCUA 6 (H) 07/20/2019 WBCUA 1 07/20/2019 BACTERIA Few (A) 07/20/2019 In addition to the above an extensive amount of complex data in the patients lab and chart were reviewed. Diagnostic Imaging Reviewed in EMR. This note was copied forward from previously composed documentation. I have reviewed and updated the history, review of systems, physical exam, data, assessment and plan of the note so that it reflects the evaluation and management of the patient for 07/20/2020. Cosigned by Rajwinder Polanco at 07/20/2020 2:19 PM EST Associated attestation - Polanco, Leahkathleenmissy - 07/20/2020 2:19 PM EST I saw and evaluated the patient, and discussed with the resident. I agree with the resident???s findings and plan as documented in the resident???s note. ESRD- home IHD. SAL cirrhosis. has vertebral OM, was discharged on vanc with dialysis but signed out AMA from rehab. was taking oral linezolid but re admitted with back pain. ID considering oral regimen. IHD today * Cecelia Womack PharmD - 07/20/2020 1:09 PM EST Images from the original note were not included. [facility] Clinical Pharmacy Service: Vancomycin Monitoring Consult --Assessment and Plan-- ?? Leoncio Rollins Jr. is a 45 y.o. male being treated with vancomycin for OM and epidural abscess. ?? Pulse dose vancomycin due to ESRD/HD usual MWF. ?? Random level 18 mg/L. No plans for HD today. Will hold on repeating dose today especially since patient with dalbavancin outpatient infusion scheduled for Saturday 07/21 at [facility]. ?? If dalbavancin plans change will give patient a vancomycin dose ?? Goal vancomycin trough of 15-20 mg/L ?? Pharmacy will continue to monitor therapy for efficacy and toxicity. Joyce Womack, DarrianD, BCPS Clinical Final Expense Agent Internal Medicine/Diabetes Now Please contact me via [employer] Secure Chat (preferred) Patient is allergic to codeine sulfate and codeine. Current Anti-Infectives Dose Frequency Start End entecavir (BARACLUDE) tablet 0.5 mg 0.5 mg Every 7 days 07/14/2020 Admin Instructions: ADMINISTER ON EMPTY STOMACH (2 HOURS BEFORE OR AFTER MEALS).LEVEL 2 HAZARDOUS MEDICATION Route: Oral vancomycin intermittent/pulse dosing PLACEHOLDER ORDER Use as directed PRN 07/14/2020 Admin Instructions: Patient is receiving intermittent/pulse vancomycin dosing based on random serumlevels. NOTE:This is NOT an active medication order. If a dose of vancomycin is needed, it must be entered as a one-time dose by physicians or pharmacists. Route: Intravenous documented within (last 72 hours) Date/Time Action Medication Dose Rate 07/17/20 1438 New Bag vancomycin (VANCOCIN) 1,000 mg in sodium chloride 0.9% 250 mL ADDaptor IVPB 1,000 mg 250 mL/hr --Objective Data-- Vitals: 07/20/20 0415 07/20/20 0809 07/20/20 1245 07/20/20 1300 BP: 155/80 147/80 153/84 161/81 Pulse: 87 78 76 69 Resp: 16 18 Temp: 98.1 ??F (36.7 ??C) 97.7 ??F (36.5 ??C) 97.5 ??F (36.4 ??C) TempSrc: Oral Oral Skin SpO2: 98% 95% Weight: Height: I/O last 3 completed shifts: In: 710 [P.O.:670; I.V.:40] Out: 1225 [Urine:1225] WBC, BUN, Creatinine (Last 7 days) WBC BUN Creatinine 3.2 07/20/20 0729 28 07/19/20 0515 7.21 07/19/20 0515 3.0 07/19/20 0515 42 07/17/20 0607 8.26 07/17/20 0607 3.1 07/17/20 0607 41 07/16/20 0600 7.57 07/16/20 0600 [place] body weight: 66.1 kg (145 lb 11.6 oz) Adjusted ideal body weight: 88.3 kg (194 lb 10.2 oz) --Cultures-- Microbiology Results Date and Time Order Name Sensitivity Status Organisms Specimen ID Source 07/15/2020 0004 #1 Blood culture-Peripheral site 1 Final [id number] Peripheral 07/14/2020 2334 #2 Blood culture-Peripheral site 2 Final [id number] Peripheral --Vancomycin Concentrations-- Lab Results (Last 7 days) Vanc Rdm 18.0 07/20/20 0729 15.2 07/17/20 0607 10.2 07/16/20 0600 * Kelly Banerjee, PT - 07/20/2020 11:25 AM EST Physical Therapy Physical Therapy Treatment and Co-treatment Name: Leoncio Rollins Jr. : 1975 Attending Physician: Addison Vaca* Admission Diagnosis: VERTEBRAL OSTEOMYELITIS Date: 07/20/2020 Room: 8025/U8025 Reviewed Pertinent hospital course: Yes Hospital Course PT/OT: Pt presents from OSH with back pain; CT L-spine(07/14): evidence of osteomyelitis in L5/S1 vertebral body endplate which appears worsened. Extensive soft tissue thickening posteriorly which extends into the canal presumably relates to infection and appears similar; 2uPRBC(07/17); PMHx: ESRD on home HD, SAL cirrhosis s/p liver txp 2017, pulm HTN, JC, T2DM, epidural abscess and L5-S1 osteomyelitis Precautions: none Activity Level: Activity as tolerated Aide: none Assessment Pt tolerated therapy session well and motivated to participate. Pt demonstrated ability to ambulateshort distances with use of RW this date. Pt would benefit from continued therapy at inpatient rehab level of care upon d/c from [facility]. Pt currently declining and reports he is going to return home upon d/c from [facility]; therefore, recommend 24 hour S/A and home PT. Co-treatment indicated: to integrate multiple skills simultaneously in order to challenge patient and advance progress Recommendation Recommendation: IP Rehab(If pt declines, recommend 24 hour S/A and home PT) Equipment Recommended: Rolling walker, Wheelchair- manual, Patient already has needed DME Outcome Measures AM-PAC 6 Clicks Basic Mobility Inpatient Short Form: PT 6 Clicks Score: 17 Mobility Recommendations for Staff Patient ability: Patient transfers to chair/ bedside commode Assist needed: with 2 person assist Equipment/ Precautions needed: Requires assistive device Requires Assistive Device: Rolling walker Cognition Overall Cognitive Status: Within Functional Limits Cognitive Assessment: Safety Judgment;Insight Arousal/Alertness: Alert Orientation Level: Oriented X4 Behavior: Appropriate;Cooperative Safety Judgment: Good awareness of safety precautions(min cues for safe hand placement with transfers) Insight: Demonstrated intact insight into limitation and abilities to complete ADL's safely Pain Pain Score: (no number provided) Pain Location: Foot(left) Pain Descriptors: Aching Pain Intervention(s): Ambulation/increased activity Mobility Bed Mobility Supine to Sit: Minimal assistance;of 2 people;head of bed flat;towards the left;use of handrail Sit to Supine: Minimal assistance;head of bed flat;towards the right;use of handrail Transfers Sit to Stand: Minimal assistance;of 2 people;up to assistive device;cues for hand placement(x 2 reps) Sit to Stand Assistance Device: Rolling walker Stand to Sit: Minimal assistance(2/2 pt attempting to sit prior to reaching bed) Gait Distance: 8' x 2 Level of Assistance: Minimal assistance Assistive Device: Rolling walker Gait Characteristics: Unsteady;R decreased step length;L decreased step length;decreased anand;Shuffling;Narrow JACK(cues for RW use/safety) Balance Sitting - Static: Stand-by assistance Sitting - Dynamic: Stand by assistance Standing - Static: Contact Guard Assistance;With Assistive Device Standing-Static Asssistance Device: Rolling walker Standing - Dynamic: Minimal Assistance;With Assistive Device Standing-Dynamic Assistance Device: Rolling walker Position after Treatment and Safety Handoff Position after treatment and safety handoff Position after therapy session: Bed Details: Call light/ needs within reach Alarms: Bed Alarms Status: Activated and interfaced unchanged from previous settings Goals Goals Met: Bed mobility, Sit to stand Collaborated with: Patient Patient Stated Goal: to go home Goals to be met by: 07/22/20 Patient will transition from supine to sit: Stand-By assistance, head of bed flat Patient will transition from sit to supine: Stand-By assistance, head of bed flat Patient will transfer from sit to stand: Contact Guard assistance, up to assistive device(to RW) Patient will transfer bed/chair: Will tolerate assessment Patient will ambulate: Contact Guard assistance, with assistive device, distance (in feet) Ambulation Asssistance Device: Rolling walker Distance (in feet): 25' Patient will sit edge of bed: Contact Guard assistance, time at EOB, while participating in seated dynamic balance activities Time at EOB: 10 mins Pt Will report pain with functional mobility at: 4/10 or less Long-term goal to be met by: 07/29/20 Long-Term Goal : Patient will ambulate 50' with SBA using RW Patient/Family Education Educated patient on the role of physical therapy, goals, plan of care, importance of increased activity, discharge recommendations, transfer training and gait training and fall prevention strategies,including need for supervision/ assistance with OOB activity; patient verbalized understanding and demonstrated understanding. Handout(s) issued: none. Plan Plan Treatment/Interventions: LE strengthening/ROM, Endurance training, Patient/family training, Equipment eval/education, Gait training, Neuromuscular Reeducation, Therapeutic Exercise, Therapeutic Activity PT Frequency: minimum 3x/week The plan of care and recommendations assesses the patient's and/or caregiver's readiness, willingness, and ability to provide or support functional mobility and ADL tasks as needed upon discharge. Kelly Banerjee PT, DPT [facility] Pager: Department: Hours: -Th 7:00-5:30 Time Start Time: 0939 Stop Time: 1020 Time Calculation (min): 41 min Charges $Gait/Mobility: 8-22 mins $Therapeutic Activity: 2 units Problem List Patient [...] Dx) ??? Vertebral osteomyelitis (CMS Dx) Past Medical History Past Medical History: Diagnosis [...] TIPS PROCEDURE 10/2016 ??? TIPS Revision 04/2017 * Abbie Paz OTR - 07/20/2020 10:32 AM EST Occupational Therapy Treatment Name: Leoncio Rollins Jr. : 1975 Attending Physician: Addison Vaca* Admission Diagnosis: VERTEBRAL OSTEOMYELITIS Date: 07/20/2020 Room: 8025/U8025 Reviewed Pertinent hospital course: Yes Hospital Course PT/OT: Pt presents from OSH with back pain; CT L-spine(07/14): evidence of osteomyelitis in L5/S1 vertebral body endplate which appears worsened. Extensive soft tissue thickening posteriorly which extends into the canal presumably relates to infection and appears similar; 2uPRBC(07/17); PMHx: ESRD on home HD, SAL cirrhosis s/p liver txp 2018, pulm HTN, JC, T2DM, epidural abscess and L5-S1 osteomyelitis Precautions: none Activity Level: Activity as tolerated Recommendation Recommendation: IP Rehab; if returning home will need 24 hour assist Equipment Recommendations: (bed railing for increased independence with bed mobility if returning home- pt reports he will look into obtaining) Assessment Assessment: Decreased activity tolerance, Decreased Functional Mobility, Decreased Balance, Decreased ADL status, Decreased UE strength, Decreased Safe judgment during ADL, Decreased self-care transfers, Decreased IADLs Co-treatment indicated: to integrate multiple skills simultaneously in order to challenge patient and advance progress Prognosis for OT goals: Good Outcome Measures AM-PAC 6 Clicks Daily Activity Inpatient Short Form: OT 6 Clicks Score: 17 Cognition Overall Cognitive Status: Within Functional Limits Cognitive Assessment: Safety Judgment;Insight Arousal/Alertness: Alert Orientation Level: Oriented X4 Behavior: Appropriate;Cooperative Safety Judgment: Good awareness of safety precautions(min cues for safe hand placement with transfers) Insight: Demonstrated intact insight into limitation and abilities to complete ADL's safely Pain Pain Score: (no number provided) Pain Location: Foot(left) Pain Descriptors: Aching Pain Intervention(s): Ambulation/increased activity Functional Mobility Bed Mobility Rolling: Modified independent;use of handrail Supine to Sit: Minimal assistance;of 2 people;increased time to complete task;head of bed flat;use of handrail Sit to Supine: Minimal assistance(bringing LEs up into bed) Functional Transfers Sit to Stand: Minimal assistance;of 2 people Bed to Chair: Minimal assistance;of 2 people;with assistive device Bed to Chair Assistance Device: Rolling walker Functional Mobility: Minimal assitance;Cues for proper positioning;increased time to complete task;with assistive device(Pt completed short functional distances in room. Seated rest break to completeto door and back to bed) Functional Mobility Assistance Device: Rolling walker Balance Sitting - Static: Stand-by assistance Sitting - Dynamic: Contact Guard Assistance Standing - Static: Minimal Assistance;With Assistive Device Standing-Static Asssistance Device: Rolling walker Standing - Dynamic: Minimal Assistance;With Assistive Device Standing-Dynamic Assistance Device: Rolling walker ADL Feeding: Independent Lower Body Dressing: Moderate assistance Lower Body Dressing Deficit: Don/doff pants;Thread LLE;Thread RLE;Increased time to complete Location Assessed LE Dressing: Supine in bed Toileting: Stand-by assistance Toileting Deficit: Use of bedpan/urinal setup Location Assessed Toileting: Seated edge of bed Position after Treatment/Safety Handoff Position after therapy session: Bed Details: Call light/ needs within reach Alarms: Bed Alarms Status: Activated and Interfaced with call system Goals Goals to be met in: 1 week Patient stated goal: to go home, to decrease pain during mobility and ADLs, to increase independence Patient will complete supine to sit in prep for ADLs: Stand-by assistance(previous goal met 07/20) Patient will complete functional chair transfer: Contact Guard assistance(previous goal met 07/20) Patient will complete upper body bathing : Minimal assistance(NEW GOAL 07/20) Pt Will tolerate completeing ADLs with pain less than 4/10: . Miscellaneous Goal #1: Patient will tolerate sit to stand transfer assessment in prep for OOB ADLs-GOAL MET 07/20 Miscellaneous Goal #2: Patient will complete therapeutic activity seated EOB x5 minutes with CGA for sitting balance- GOAL MET 07/20 Long-Term Goal : Patient will part in toilet txfr assessment (upgraded 07/20) group home goal to be met in: 2 weeks Collaborated with: Patient Plan Plan Treatment Interventions: ADL retraining, Therapeutic Activity, Compensatory technique education, Excercise, Activity Tolerance training, Functional transfer training, Continued evaluation, Patient/Family training OT Frequency: minimum 3x/week The plan of care and recommendations assesses [...] and use of call light. patient verbalized understanding and demonstrated understanding. OT Time Start Time: 0940 Stop Time: 1021 Time Calculation (min): 41 min OT Charges $Therapeutic Activity: 23-37 mins $Self Care/ADL/Home Management Trainin-22 mins Abbie Paz OTR/L Occupational Therapy [phone] Problem List Patient Active Problem List Diagnosis [...] Dx) ??? Vertebral osteomyelitis (CMS Dx) Past Medical History Past Medical History: Diagnosis [...] TIPS PROCEDURE 10/2016 ??? TIPS Revision 04/2017 * Addison Mendoza MD - 07/19/2020 12:34 PM EST Hospital Medicine Attending Daily Progress Note Chief Complaint / Reason for Follow-Up Leoncio Rollins Jr. is a 45 y.o. male on hospital day 5. The principal reason for today's follow up visit is Osteomyelitis ([facility] Dx) and leg weakness He has hx of spinal surgery for epidural abscess on 04/2020 , admitted to on 05/28/2020 with backpian with recurrent epidural abscess and osteo. CT guided fluid aspiration through IR which was done 06/03 with 2 mL of purulent fluid were aspirated. Eventually he was transferred to [place] to continue vancomycin and for rehab. However, her left [facility] [place] on 06/25/2020 but went to OSH 07/14 morning due to acute worsening of his lower back pain in the same area he had osteo/epidural abscess. Patient has hx of liver transplant and on cyclosporin. Interval History No complaints today. Slept well overnight. Blood transfusion on 07/17 helped. Has hx of anemia with variceal bleeds and has needed transfusion in the past. No fever, chills, SOB. Lower lumbar/sacral back pain is about the same. Good appetite. Review of Systems (focused) As above. 10 points ROS performed and otherwise negative. Medications Scheduled Meds: ??? aspirin 81 mg Oral Daily with breakfast ??? carBAMazepine 200 mg Oral Nightly (2099) ??? cloNIDine HCL 0.1 mg Oral BID ??? cycloSPORINE modified 100 mg Oral BID ??? entecavir 0.5 mg Oral Q7 Days ??? famotidine 20 mg Oral Daily 0900 ??? gabapentin 100 mg Oral BID ??? heparin 5,000 Units Subcutaneous 3 times per day ??? hydrALAZINE 100 mg Oral Q8H ??? insulin lispro 0-5 Units Subcutaneous TID AC ??? lidocaine 1 patch Transdermal Q24H ??? melatonin 6 mg Oral Nightly (2099) ? ? methocarbamoL 500 mg Oral 4x Daily AC & HS ??? metoprolol tartrate 50 mg Oral BID ??? NIFEdipine 90 mg Oral BID ??? QUEtiapine 12.5 mg Oral Nightly (2099) ??? sodium chloride 10 mL Intravenous QS ??? terazosin 10 mg Oral Nightly (2099) Continuous Infusions: PRN Meds:acetaminophen, dextrose 50 % in water (D50W) OR dextrose 50 % in water (D50W), glucose, ondansetron, oxyCODONE, polyethylene glycol, vancomycin intermittent/pulse dosing PLACEHOLDER ORDER, wound dressings Vital Signs Temp: [97.7 ??F (36.5 ??C)-98.6 ??F (37 ??C)] 97.9 ??F (36.6 ??C) Heart Rate: [75-94] 82 Resp: [16-18] 16 BP: (117-151)/(51-73) 138/70 Intake/Output Summary (Last 24 hours) at 07/19/2020 1229 Last data filed at 07/19/2020 0725 Gross per 24 hour Intake 870 ml Output 1025 ml Net -155 ml Physical Exam Physical Exam Constitutional: General: He is not in acute distress. Appearance: He is obese. He is not ill-appearing. Comments: Very hard of hearing. Talkative. Able to turn in the bed by himslef, w/o pain in the back. HENT: Head: Normocephalic and atraumatic. Right Ear: External ear normal. Left Ear: External ear normal. Nose: Nose normal. Mouth/Throat: Mouth: Mucous membranes are moist. Pharynx: Oropharynx is clear. No oropharyngeal exudate. Eyes: General: No scleral icterus. Extraocular Movements: Extraocular movements intact. Conjunctiva/sclera: Conjunctivae normal. Neck: Musculoskeletal: Normal range of motion and neck supple. No neck rigidity. Cardiovascular: Rate and Rhythm: Normal rate and regular rhythm. Pulses: Normal pulses. Heart sounds: Normal heart sounds. No murmur. Pulmonary: Effort: Pulmonary effort is normal. No respiratory distress. Breath sounds: Normal breath sounds. Abdominal: General: Abdomen is flat. Bowel sounds are normal. There is no distension. Palpations: Abdomen is soft. Tenderness: There is no abdominal tenderness. Musculoskeletal: Normal range of motion. General: Tenderness (minimal discomfort to palpation in the lower lumbar area.) present. No swelling. Right lower leg: No edema. Left lower leg: No edema. Comments: Trace LE edema bilat. Left ankle w/o any deformity or discoloration. Good ROM in the left ankle. More strength in both legs. Resting in the bed, against the garvity, due to weakness. Good plantar- and dorsiflexion in both feet. Skin: General: Skin is dry. Coloration: Skin is not jaundiced. Neurological: Mental Status: He is alert and oriented to person, place, and time. Psychiatric: Mood and Affect: Mood normal. Behavior: Behavior normal. Thought Content: Thought content normal. Judgment: Judgment normal. Laboratory Data Lab 07/19/20 0515 07/17/20 0607 07/16/20 1231 07/15/20 0542 WBC 3.0* 3.1* 3.0* 5.6 HEMOGLOBIN 7.5* 7.8* 6.7* 6.9* HEMATOCRIT 22.7* 24.1* 20.8* 21.5* MEAN CORPUSCULAR VOLUME 88.6 89.6 90.4 91.3 PLATELETS 106* 96* 100* 132* Lab 07/19/20 0507/17/20 0607/16/20 0600 07/15/20 0542 SODIUM 139 140 139 142 POTASSIUM 4.4 5.1 5.1 6.3* CHLORIDE 102 102 103 105 CO2 25 26 26 22 BUN 28* 42* 41* 73* CREATININE 7.21* 8.26* 7.57* 11.21* GLUCOSE 88 152* 109* 87 Lab 07/19/20 0515 07/17/20 0607 07/16/20 0600 07/15/20 0542 07/14/20 2334 CALCIUM 8.8 8.6 8.3* 8.7 8.8 MAGNESIUM -- -- -- 2.3 2.3 PHOSPHORUS -- -- -- 9.0* 9.3* Lab 07/19/20 0507/16/20 0607/14/20 2334 INR 1.1 1.2* 1.2* PROTHROMBIN TIME 14.5 15.7* 15.6* Lab 07/19/20 0515 07/17/20 0607 07/16/20 0607/15/20 0542 07/14/20 2334 ALT 3* 6* 6* -- 5* AST 7* 7* 10* -- 9* ALK PHOS 52 53 54 -- 63 BILIRUBIN TOTAL 0.3 0.3 0.4 -- 0.4 BILIRUBIN DIRECT 0.07 0.04 0.11 -- 0.10 ALBUMIN 3.2* 3.2* 3.1* 3.4* 3.6 Diagnostic Studies None today Assessment & Plan Leoncio Rollins Jr. is a 45 y.o. male on hospital day 5. The medical issues being addressed in today's encounter are as follows: Principal Problem: Osteomyelitis (CMS Dx) Active Problems: Vertebral osteomyelitis (CMS Dx) 1. Osteo/discitis at L4-L5. Recurrent problem, originated with the epidural abscess in 04/2020. Has been on Vancomycin but could not continue since he left [facility] on the . Now with worsened osteo, per CT L-spine from OSH. Back on Vancomycin upon admission. I called neurosurgery for input for the need for repeat MRI and possible intervention; was recommended to follow-up with IR, given his leg weakness. Called IR and discussed. CT images from 07/15 does not reveal any paraspinal abscess. Even it is there, it cata be very small and not drainable. Hence, no indication for any drainage. ID recs appreciated. Will continue on Vancomycin while as inpatient (started on 07/14/2020) Dalbavancin 1500mg IV weekly x2 + Levaquin 250mg daily is the regimen planned to do. Patient does not want to go to [facility] or a SNF. Wants to go home. Will d/c to home when the date for the Dalbavancin infusion at an infusion center is confirmed. Continue on abx for total of 6-8 weeks, per ID. 2. Anemia; Hx of anemia with blood transfusion in the past, due to variceal bleeding. 2 units of blood transfusion on 07/17. H/H Is stable today. If trending down may need to call GI to check for variceal bleed. 3. ESRD on HS. Fistula in the left wrist area with good Bruit. Has home HD which he does 5 days a week. Dialysis due today. I spoke with the nephrology consult and was told that plan is for the HD today. He has electrolyte abnormalities and need HD to correct that. 4. Hyperkalemia; Better with dialysis. patient is asymptomatic for his K. Cont on HD as scheduled. 5. S/p liver transplant for SAL cirrhosis in 2018. On cyclosporin 10 mg BID. Cellcept held on 05/29/2020 by hepatology. Hep B positive liver donor, on lifelong Entacavir. MELD score of 22 on 06/08. - Daily MELD labs - Hepatology consult pending. - Entecavir 0.5 mg weekly - Cyclosporin 100 mg BID, follow up cyclosporin level. - Continue to hold Cellcept 6. Pulm HTN: ECHO on 07/2019 with PAP 50 mmg HG, Has JC but not compliant with CPAP NO acute issue now but need to avoid rapid fluid shifts. 7. DM; HgbA1c 5.4 on 06/26. Cont on low dose SSI. Gabapentin, carbamezpine for ? Neuropathy? Will continue for now. 8. GERD; cont on Famotidine. 9. HTN: BP is not optimal. Hx of poor BP control. Hydralazine 100 mg TID, metoprolol 25 mg BID and Nifedipine 90 mg BID. Has been on these meds with good BP in the past. Metoprolol to 50 mg BID but still BP not optimal and HR is > 80. Was on doxazin 8 mg QD (non-formulary) and also clonidine in the pas. Started on clonidine 0.1 BID Yesterday. BP is better but not optimal. Will continue to monitor. Diet: Diet Orders Diet renal starting at 07/14 2031 Code Status: Full Code Nadine ZAVALA FACBrandt Attending Physician Department of Internal Medicine Pager [phone]) 12:29 PM, 07/19/2020 - * Erika Buenrostro PharmD - 07/19/2020 10:53 AM EST Transplant Pharmacy Note Transplant pharmacy is following Leoncio Rollins Jr. during hospital admission and will perform the following activities related to transplant pharmacotherapy: 1. Ensure appropriate management and titration of immunosuppressive, prophylactic, and other supportive care medications; 2. Monitor for any adverse drug effects; 3. Review the patient's medication profile for any potential drug interaction. CYC goal 75-125 ng/ml. Lifelong entecavir (renally dosed). For issues not related to transplantation, please contact the clinical pharmacist assigned to the primary service. Harish Buenrostro, [facility] Sales And Marketing Director [phone] Cosigned by Blake Dang PharmD at 07/19/2020 12:56 PM EST Associated attestation - Blake Dang, PharmD - 07/19/2020 12:56 PM EST I agree with the plan of care as outlined below by the resident/fellow, and will oversee and assistin the transplant-related pharmaceutical care of the patient as needed. Christiano Dang, Pharm.D. Clinical Final Expense Agent, Solid [facility] Transplant Office [phone] Pager #[phone] (Clinical Pharmacist seasonal retail merchandiser pager [phone]) * Addison Mendoza MD - 07/18/2020 12:50 PM EST Hospital Medicine Attending Daily Progress Note Chief Complaint / Reason for Follow-Up Leoncio Rollins Jr. is a 45 y.o. male on hospital day 4. The principal reason for today's follow up visit is Osteomyelitis ([facility] Dx) and leg weakness He has hx of spinal surgery for epidural abscess on 04/2020 , admitted to on 05/28/2020 with backpian with recurrent epidural abscess and osteo. CT guided fluid aspiration through IR which was done 06/03 with 2 mL of purulent fluid were aspirated. Eventually he was transferred to [facility] to continue vancomycin and for rehab. However, her left [place] on 06/25/2020 but went to OSH 07/14 morning due to acute worsening of his lower back pain in the same area he had osteo/epidural abscess. Patient has hx of liver transplant and on cyclosporin. Interval History C/o pain in the left ankle. No trauma. Leg swelling is better. Blood transfusion on 07/17 helped. Has hx of anemia with variceal bleeds and has needed transfusion in the past. No fever, chills, SOB. Lower lumbar/sacral back pain is about the same. Good appetite. Review of Systems (focused) As above. 10 points ROS performed and otherwise negative. Medications Scheduled Meds: ??? aspirin 81 mg Oral Daily with breakfast ??? carBAMazepine 200 mg Oral Nightly (2099) ??? cycloSPORINE modified 100 mg Oral BID ??? entecavir 0.5 mg Oral Q7 Days ??? famotidine 20 mg Oral Daily 0900 ??? gabapentin 100 mg Oral BID ??? heparin 5,000 Units Subcutaneous 3 times per day ??? hydrALAZINE 100 mg Oral Q8H ??? insulin lispro 0-5 Units Subcutaneous TID AC ??? melatonin 6 mg Oral Nightly (2099) ? ? methocarbamoL 500 mg Oral 4x Daily AC & HS ??? metoprolol tartrate 50 mg Oral BID ??? NIFEdipine 90 mg Oral BID ??? QUEtiapine 12.5 mg Oral Nightly (2099) ??? sodium chloride 10 mL Intravenous QS ??? terazosin 10 mg Oral Nightly (2099) Continuous Infusions: PRN Meds:acetaminophen, dextrose 50 % in water (D50W) OR dextrose 50 % in water (D50W), glucose, ondansetron, oxyCODONE, polyethylene glycol, vancomycin intermittent/pulse dosing PLACEHOLDER ORDER Vital Signs Temp: [98 ??F (36.7 ??C)-99 ??F (37.2 ??C)] 99 ??F (37.2 ??C) Heart Rate: [85-99] 99 Resp: [16-18] 16 BP: (151-190)/(70-82) 154/82 Intake/Output Summary (Last 24 hours) at 07/18/2020 1231 Last data filed at 07/18/2020 0906 Gross per 24 hour Intake 750 ml Output 320 ml Net 430 ml Physical Exam Physical Exam Constitutional: General: He is not in acute distress. Appearance: He is obese. He is not ill-appearing. Comments: Very hard of hearing. talkative HENT: Head: Normocephalic and atraumatic. Right Ear: External ear normal. Left Ear: External ear normal. Nose: Nose normal. Mouth/Throat: Mouth: Mucous membranes are moist. Pharynx: Oropharynx is clear. No oropharyngeal exudate. Eyes: General: No scleral icterus. Extraocular Movements: Extraocular movements intact. Conjunctiva/sclera: Conjunctivae normal. Neck: Musculoskeletal: Normal range of motion and neck supple. No neck rigidity. Cardiovascular: Rate and Rhythm: Normal rate and regular rhythm. Pulses: Normal pulses. Heart sounds: Normal heart sounds. No murmur. Pulmonary: Effort: Pulmonary effort is normal. No respiratory distress. Breath sounds: Normal breath sounds. Abdominal: General: Abdomen is flat. Bowel sounds are normal. There is no distension. Palpations: Abdomen is soft. Tenderness: There is no abdominal tenderness. Musculoskeletal: Normal range of motion. General: Tenderness (to palpation in the lower lumbar/sacral area.) present. No swelling. Right lower leg: Edema present. Left lower leg: Edema present. Comments: Trace LE edema bilat. Left ankle w/o any deformity or discoloration. Good ROM in the left ankle. More strength in both legs. Resting in the bed, against the garvity, due to weakness. Good plantar- and dorsiflexion in both feet. Skin: General: Skin is dry. Coloration: Skin is not jaundiced. Neurological: Mental Status: He is alert and oriented to person, place, and time. Psychiatric: Mood and Affect: Mood normal. Behavior: Behavior normal. Thought Content: Thought content normal. Judgment: Judgment normal. Laboratory Data Lab 07/17/20 0607/16/20 1231 07/15/20 0507/14/20 2334 WBC 3.1* 3.0* 5.6 5.2 HEMOGLOBIN 7.8* 6.7* 6.9* 7.5* HEMATOCRIT 24.1* 20.8* 21.5* 23.4* MEAN CORPUSCULAR VOLUME 89.6 90.4 91.3 90.5 PLATELETS 96* 100* 132* 146 Lab 07/17/20 0607/16/20 0607/15/20 0542 07/14/20 2334 SODIUM 140 139 142 141 POTASSIUM 5.1 5.1 6.3* 6.2* CHLORIDE 102 103 105 105 CO2 26 26 22 21 BUN 42* 41* 73* 72* CREATININE 8.26* 7.57* 11.21* 11.30* GLUCOSE 152* 109* 87 103* Lab 07/17/20 0607/16/20 0607/15/20 0542 07/14/20 2334 CALCIUM 8.6 8.3* 8.7 8.8 MAGNESIUM -- -- 2.3 2.3 PHOSPHORUS -- -- 9.0* 9.3* Lab 07/16/20 0607/14/20 2334 INR 1.2* 1.2* PROTHROMBIN TIME 15.7* 15.6* Lab 07/17/20 0607 07/16/20 0600 07/15/20 0542 07/14/20 2334 ALT 6* 6* -- 5* AST 7* 10* -- 9* ALK PHOS 53 54 -- 63 BILIRUBIN TOTAL 0.3 0.4 -- 0.4 BILIRUBIN DIRECT 0.04 0.11 -- 0.10 ALBUMIN 3.2* 3.1* 3.4* 3.6 Diagnostic Studies None today Assessment & Plan Leoncio Rollins Jr. is a 45 y.o. male on hospital day 4. The medical issues being addressed in today's encounter are as follows: Principal Problem: Osteomyelitis ([facility] Dx) Active Problems: Vertebral osteomyelitis ([facility] Dx) 1. Osteo/discitis at L4-L5. Recurrent problem, originated with the epidural abscess in 04/2020. Has been on Vancomycin but could not continue since he left [facility] on the . Now with worsened osteo, per CT L-spine from OSH. Back on Vancomycin upon admission. I called neurosurgery for input for the need for repeat MRI and possible intervention; was recommended to follow-up with IR, given his leg weakness. Called IR and discussed. CT images from 07/15 does not reveal any paraspinal abscess. Even it is there, it cata be very small and not drainable. Hence, no indication for any drainage. ID recs appreciated. Will continue on Vancomycin while as inpatient. Dalbavancin 1500mg IV weekly x2 + Levaquin 250mg daily is the regimen planned to do. Patient does not want to go to [facility] or a SNF. Wants to go home. Will d/c to home when the date for the Dalbavancin infusion at an infusion center is confirmed. Continue on abx for total of 6-8 weeks, per ID. 2. Anemia; Hx of anemia with blood transfusion in the past, due to variceal bleeding. 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 Will check H/H in AM. 3. ESRD on HS. Fistula in the left wrist area with good Bruit. Has home HD which he does 5 days a week. Dialysis due today. I spoke with the nephrology consult and was told that plan is for the HD today. He has electrolyte abnormalities and need HD to correct that. 4. Hyperkalemia; Better with dialysis. patient is asymptomatic for his K. Cont on HD as scheduled. 5. S/p liver transplant for SAL cirrhosis in 2018. On cyclosporin 10 mg BID. Cellcept held on 05/29/2020 by hepatology. Hep B positive liver donor, on lifelong Entacavir. MELD score of 22 on 06/08. - Daily MELD labs - Hepatology consult pending. - Entecavir 0.5 mg weekly - Cyclosporin 100 mg BID, follow up cyclosporin level. - Continue to hold Cellcept 6. Pulm HTN: ECHO on 07/2019 with PAP 50 mmg HG, Has JC but not compliant with CPAP NO acute issue now but need to avoid rapid fluid shifts. 7. DM; HgbA1c 5.4 on 06/26. Cont on low dose SSI. Gabapentin, carbamezpine for ? Neuropathy? Will continue for now. 8. GERD; cont on Famotidine. 9. HTN: BP is not optimal. Hx of poor BP control. Hydralazine 100 mg TID, metoprolol 25 mg BID and Nifedipine 90 mg BID. Has been on these meds with good BP in the past. Metoprolol to 50 mg BID but still BP not optimal and HR is > 80. Was on doxazin 8 mg QD (non-formulary) and also clonidine in the pas. Will start on clonodine 0.1 BID and monitor BP. Diet: Diet Orders Diet renal starting at 07/14 2031 Code Status: Full Code Damaris ZAVALA.Jonathan FACP Attending Physician Department of Internal Medicine Pager [phone]) 12:31 PM, 07/18/2020 - * Addison Mendoza MD - 07/17/2020 5:02 PM EST Hospital Medicine Attending Daily Progress Note Chief Complaint / Reason for Follow-Up Leoncio Rollins Jr. is a 45 y.o. male on hospital day 3. The principal reason for today's follow up visit is Osteomyelitis ([facility] Dx) and leg weakness He has hx of spinal surgery for epidural abscess on 04/2020 , admitted to on 05/28/2020 with backpian with recurrent epidural abscess and osteo. CT guided fluid aspiration through IR which was done 06/03 with 2 mL of purulent fluid were aspirated. Eventually he was transferred to [place] to continue vancomycin and for rehab. However, her left [place] on 06/25/2020 but went to OSH 07/14 morning due to acute worsening of his lower back pain in the same area he had osteo/epidural abscess. Patient has hx of liver transplant and on cyclosporin. Interval History Feeling better today. Think the blood transfusion helped. Has hx of anemia with variceal bleeds and has needed transfusion in the past. No fever, chills, SOB. Lower lumbar/sacral back pain is about the same. Good appetite. Review of Systems (focused) As above. 10 points ROS performed and otherwise negative. Medications Scheduled Meds: ??? aspirin 81 mg Oral Daily with breakfast ??? carBAMazepine 200 mg Oral Nightly (2099) ??? cycloSPORINE modified 100 mg Oral BID ??? entecavir 0.5 mg Oral Q7 Days ??? famotidine 20 mg Oral Daily 0900 ??? gabapentin 100 mg Oral BID ??? heparin 5,000 Units Subcutaneous 3 times per day ??? hydrALAZINE 100 mg Oral Q8H ??? insulin lispro 0-5 Units Subcutaneous TID AC ??? melatonin 6 mg Oral Nightly (2099) ? ? methocarbamoL 500 mg Oral 4x Daily AC & HS ??? metoprolol tartrate 50 mg Oral BID ??? NIFEdipine 90 mg Oral BID ??? QUEtiapine 12.5 mg Oral Nightly (2099) ??? sodium chloride 10 mL Intravenous QS ??? terazosin 10 mg Oral Nightly (2099) Continuous Infusions: PRN Meds:acetaminophen, dextrose 50 % in water (D50W) OR dextrose 50 % in water (D50W), glucose, ondansetron, oxyCODONE, polyethylene glycol, vancomycin intermittent/pulse dosing PLACEHOLDER ORDER Vital Signs Temp: [97.2 ??F (36.2 ??C)-98.5 ??F (36.9 ??C)] 97.8 ??F (36.6 ??C) Heart Rate: [81-101] 95 Resp: [16-18] 18 BP: (119-187)/(63-83) 187/75 Intake/Output Summary (Last 24 hours) at 07/17/2020 1657 Last data filed at 07/17/2020 1400 Gross per 24 hour Intake 840 ml Output 2250 ml Net -1410 ml Physical Exam Physical Exam Constitutional: General: He is not in acute distress. Appearance: He is obese. He is not ill-appearing. Comments: Very hard of hearing. HENT: Head: Normocephalic and atraumatic. Right Ear: External ear normal. Left Ear: External ear normal. Nose: Nose normal. Mouth/Throat: Mouth: Mucous membranes are moist. Pharynx: Oropharynx is clear. No oropharyngeal exudate. Eyes: General: No scleral icterus. Extraocular Movements: Extraocular movements intact. Conjunctiva/sclera: Conjunctivae normal. Neck: Musculoskeletal: Normal range of motion and neck supple. No neck rigidity. Cardiovascular: Rate and Rhythm: Normal rate and regular rhythm. Pulses: Normal pulses. Heart sounds: Normal heart sounds. No murmur. Pulmonary: Effort: Pulmonary effort is normal. No respiratory distress. Breath sounds: Normal breath sounds. Abdominal: General: Abdomen is flat. Bowel sounds are normal. There is no distension. Palpations: Abdomen is soft. Tenderness: There is no abdominal tenderness. Musculoskeletal: Normal range of motion. General: Tenderness (to palpation in the lower lumbar/sacral area.) present. No swelling. Right lower leg: No edema. Left lower leg: No edema. Comments: More strength in both legs. Resting in the bed, against the garvity, due to weakness. Good plantar- and dorsiflexion in both feet. Skin: General: Skin is dry. Coloration: Skin is not jaundiced. Neurological: Mental Status: He is alert and oriented to person, place, and time. Psychiatric: Mood and Affect: Mood normal. Behavior: Behavior normal. Thought Content: Thought content normal. Judgment: Judgment normal. Laboratory Data Lab 07/17/20 0607 07/16/20 1231 07/15/20 0542 07/14/20 2334 WBC 3.1* 3.0* 5.6 5.2 HEMOGLOBIN 7.8* 6.7* 6.9* 7.5* HEMATOCRIT 24.1* 20.8* 21.5* 23.4* MEAN CORPUSCULAR VOLUME 89.6 90.4 91.3 90.5 PLATELETS 96* 100* 132* 146 Lab 07/17/20 0607 07/16/20 0600 07/15/20 0542 07/14/20 2334 SODIUM 140 139 142 141 POTASSIUM 5.1 5.1 6.3* 6.2* CHLORIDE 102 103 105 105 CO2 26 26 22 21 BUN 42* 41* 73* 72* CREATININE 8.26* 7.57* 11.21* 11.30* GLUCOSE 152* 109* 87 103* Lab 07/17/20 0607 07/16/20 0600 07/15/20 0542 07/14/20 2334 CALCIUM 8.6 8.3* 8.7 8.8 MAGNESIUM -- -- 2.3 2.3 PHOSPHORUS -- -- 9.0* 9.3* Lab 07/16/20 0600 07/14/20 2334 INR 1.2* 1.2* PROTHROMBIN TIME 15.7* 15.6* Lab 07/17/20 0607 07/16/20 0600 07/15/20 0542 07/14/20 2334 ALT 6* 6* -- 5* AST 7* 10* -- 9* ALK PHOS 53 54 -- 63 BILIRUBIN TOTAL 0.3 0.4 -- 0.4 BILIRUBIN DIRECT 0.04 0.11 -- 0.10 ALBUMIN 3.2* 3.1* 3.4* 3.6 Diagnostic Studies None today Assessment & Plan Leoncio Rollins Jr. is a 45 y.o. male on hospital day 3. The medical issues being addressed in today's encounter are as follows: Principal Problem: Osteomyelitis ([facility] Dx) Active Problems: Vertebral osteomyelitis (CMS Dx) 1. Osteo/discitis at L4-L5. Recurrent problem, originated with the epidural abscess in 04/2020. Has been on Vancomycin but could not continue since he left [place] on the . Now with worsened osteo, per CT L-spine from OSH. Back on Vancomycin upon admission. I called neurosurgery for input for the need for repeat MRI and possible intervention; was recommended to follow-up with IR, given his leg weakness. Called IR and discussed. CT images from 07/15 does not reveal any paraspinal abscess. Even it is there, it cata be very small and not drainable. Hence, no indication for any drainage. ID recs appreciated. Will continue on Vancomycin while as inpatient. Dalbavancin 1500mg IV weekly x2 + Levaquin 250mg daily is the regimen planned to do. Patient does not want to go to [place] or a SNF. Wants to go home. Will d/c to home when the date for the Dalbavancin infusion at an infusion center is confirmed. Continue on abx for total of 6-8 weeks, per ID. 2. Anemia; Hx of anemia with blood transfusion in the past, due to variceal bleeding. 2 units of blood transfusion today. H/H this morning was done just after completing blood transfusion and hence doubt the accuracy. Will check in AM. 3. ESRD on HS. Fistula in the left wrist area with good Bruit. Has home HD which he does 5 days a week. Dialysis due today. I spoke with the nephrology consult and was told that plan is for the HD today. He has electrolyte abnormalities and need HD to correct that. 4. Hyperkalemia; Better with HD. patient is asymptomatic for his K. Cont on HD. 5. S/p liver transplant for SAL cirrhosis in 2018. On cyclosporin 10 mg BID. Cellcept held on 05/29/2020 by hepatology. Hep B positive liver donor, on lifelong Entacavir. MELD score of 22 on 06/08. - Daily MELD labs - Hepatology consult pending. - Entecavir 0.5 mg weekly - Cyclosporin 100 mg BID, follow up cyclosporin level. - Continue to hold Cellcept 6. Pulm HTN: ECHO on 07/2019 with PAP 50 mmg HG, Has JC but not compliant with CPAP NO acute issue now but need to avoid rapid fluid shifts. 7. DM; HgbA1c 5.4 on 06/26. Cont on low dose SSI. Gabapentin, carbamezpine for ? Neuropathy? Will continue for now. 8. GERD; cont on Famotidine. 9. HTN: BP is not optimal. Hydralazine 100 mg TID, metoprolol 25 mg BID and Nifedipine 90 mg BID. Has been on these meds with good BP in the past. Will increase metoprolol to 50 mg BID. He may need more medication for BP control. Consider clonidine; will discuss with renal. Will follow-up on BP. Diet: Diet Orders Diet renal starting at 07/14 2031 Code Status: Full Code Damaris ZAVALA.Jonathan FACP Attending Physician Department of Internal Medicine Pager [phone]) 4:57 PM, 07/17/2020 - * Stef Tijerina, Wilbert - 07/17/2020 1:42 PM EST Images from the original note were not included. [facility] Clinical Pharmacy Service: Vancomycin Monitoring Consult --Assessment and Plan-- ?? Leoncio Rollins Jr. is a 45 y.o. male being treated with vancomycin for OM and epidural abscess. ?? Pulse dose vancomycin due to ESRD/HD usual MWF. ?? Patient has received vancomycin with level 15.2 today prior to HD. ?? Will order vancomycin 1000 mg once after HD today. ?? Will check vancomycin serum concentration Monday (unless HD prior).. ?? Goal vancomycin trough of 15-20 mg/L ?? Pharmacy will continue to monitor therapy for efficacy and toxicity. Landen Tijerina, PharmD Clinical Pharmacist, Internal Medicine Contact: OOHLALA [employer] [facility] Office: [phone] Patient is allergic to codeine sulfate and codeine. Current Anti-Infectives Dose Frequency Start End entecavir (BARACLUDE) tablet 0.5 mg 0.5 mg Every 7 days 07/14/2020 Admin Instructions: ADMINISTER ON EMPTY STOMACH (2 HOURS BEFORE OR AFTER MEALS).LEVEL 2 HAZARDOUS MEDICATION Route: Oral vancomycin (VANCOCIN) 1,000 mg in sodium chloride 0.9% 250 mL ADDaptor IVPB (Completed) 1,000 mg Once 07/16/2020 07/16/2020 Admin Instructions: Contact pharmacy if there is a question/concern of whether vancomycin should begiven based on serum drug levels.Use ADDaptor product - Mix Thoroughly Before Administration Route: Intravenous vancomycin intermittent/pulse dosing PLACEHOLDER ORDER Use as directed PRN 07/14/2020 Admin Instructions: Patient is receiving intermittent/pulse vancomycin dosing based on random serumlevels. NOTE:This is NOT an active medication order. If a dose of vancomycin is needed, it must be entered as a one-time dose by physicians or pharmacists. Route: Intravenous documented within (last 72 hours) Date/Time Action Medication Dose Rate 07/16/20 1604 New Bag vancomycin (VANCOCIN) 1,000 mg in sodium chloride 0.9% 250 mL ADDaptor IVPB 1,000 mg 250 mL/hr 07/15/20 0148 New Bag vancomycin (VANCOCIN) 1,000 mg in sodium chloride 0.9% 250 mL ADDaptor IVPB 1,000 mg 250 mL/hr --Objective Data-- Vitals: 07/17/20 1015 07/17/20 1030 07/17/20 1045 07/17/20 1137 BP: 165/79 173/78 167/80 187/75 Pulse: 89 89 93 95 Resp: 16 18 Temp: 97.8 ??F (36.6 ??C) 97.8 ??F (36.6 ??C) TempSrc: Skin Oral SpO2: 90% Weight: Height: I/O last 3 completed shifts: In: 860 [P.O.:840; I.V.:20] Out: 900 [Urine:900] WBC, BUN, Creatinine (Last 7 days) WBC BUN Creatinine 3.1 10E3/uL 07/17/20 0607 42 mg/dL 07/17/20 0607 8.26 mg/dL 07/17/20 0607 3.0 10E3/uL 07/16/20 1231 41 mg/dL 07/16/20 0600 7.57 mg/dL 07/16/20 0600 5.6 10E3/uL 07/15/20 0542 73 mg/dL 07/15/20 0542 11.21 mg/dL 07/15/20 0542 [place] body weight: 66.1 kg (145 lb 11.6 oz) Adjusted ideal body weight: 88.3 kg (194 lb 10.2 oz) --Cultures-- Microbiology Results Date and Time Order Name Sensitivity Status Organisms Specimen ID Source 07/15/2020 0004 #1 Blood culture-Peripheral site 1 Preliminary [id number] Peripheral 07/14/2020 2334 #2 Blood culture-Peripheral site 2 Preliminary [id number] Peripheral --Vancomycin Concentrations-- Lab Results (Last 7 days) Vanc Rdm 15.2 ug/mL 07/17/20 0607 10.2 ug/mL 07/16/20 0600 13.9 ug/mL 07/15/20 1039 * Rupesh Nunn MD - 07/17/2020 10:13 AM EST Images from the original note were not included. Department of Infectious Diseases Infectious Diseases Consult follow-up 07/17/2020 Patient Name: Leoncio Rollins Jr. Admit Date: 07/14/2020 Hospital Day: 4 AUTHOR: RUPESH NUNN MD Reason for consult: recurrent osteomyelitis Interval history: - No acute events overnight - Seen in dialysis this AM - Reports feeling ok overall, ongoing back pain, worked with therapy and it was tolerable - He is not sure of the plan for discharge, reiterates his desire to go home HPI: Patient is a 45 yo male with PMH of ESRD on iHD, SAL cirrhosis s/p OLT (2017), pHTN, DM2, JC, DM2, and recent epidural abscess and lumbar osteomyelitis who comes to the hospital with recurrent backpain. Patient was admitted to [facility] 04/28-05/13 with back pain, fever and AMS. MRI showed L5/S1 osteomyelitis and discitis with fluid collection concerning for epidural abscess. He underwent L5 laminectomy and I&D of abscess by neurosurgery. Wound culture from this grew MRSE, blood cultures were negative. He was discharged to continue on IV vancomycin with MWF iHD as well as oral doxycycline. He was then admitted here 05/28-06/08 with ongoing low back pain and LE weakness. MRI L spine againnoted osteomyelitis and discitis at L4-5, with 5.1 x 2.9 x 4.4 cm fluid collection which could represent seroma vs recurrent abscess. NSGY at that time did not recommend any intervention, cultures from IR aspiration showed GPC but no growth. Presumed to be the same organism as initial infection (MRSE), and treated with vancomycin with iHD. He was discharged to [place] where he was only slightly able to participate in therapy due to pain. Left AMA on 06/25 due to perceived lack of progress. Reportedly could not receive vancomycin due to lack of PICC line, and so was switched to linezolid per hisnephrologist around 07/10, at this point had been about 2 weeks without antibiotics. It seems there was confusion as patient does home hemodialysis 5d/wk and so did not receive IV vancomycin post dialysis as a typical patient might. He states his primary issues is pain which radiatesdown the R leg. Doesn't really have worsening weakness, just remains weak and doesn't want to leavetoo early to continue getting therapy. Review of Systems: Positives appear in bold; otherwise listed symptoms are negative. General: fever, chills Cardio: chest pain, palpitations Pulm: cough, shortness of breath GI: nausea, diarrhea Skin: rash, itching Physical Exam: BP 157/79 Pulse 85 Temp 97.8 ??F (36.6 ??C) (Skin) Resp 17 Ht 5' 7 (1.702 m) Wt (!) 268 lb (121.6 kg) SpO2 90% BMI 41.97 kg/m?? Gen: Awake and alert. NAD. No acute distress. Obese. HEENT: NCAT. Sclera white, EOMI. MMM. Neck: Supple. No lymphadenopathy. CV: RRR. No m/r/g. Distal pulses 2+ BL. Cap refill < 2 sec Resp: Breathing comfortably on RA. CTAB. Abd: BS+. Soft. Non-distended. NTTP. Skin: No obvious lesions or rashes. No sacral ulcers appreciated. MSK: No edema, no joint effusions. Full range of motion of arms and legs. Neuro: Alert oriented x3. Spontaneous movement of arms and legs bilaterally. 3/5 strength in b/l lower extremities. Sensation intact. Lines: PIV, LUE AVF Labs: Recent / pertinent lab results reviewed; selected results listed below: WBC 5.6 ESR 21 (from 21 on 06/22) CRP 23.8 (from 94 on 06/22) Vanc random 15.2 K 5.1 Microbiology: Blood Cx: 07/14 - NGTD Other Cx: Wound Culture - Wound, Spine, LumbarResulted: 06/01/2020 10:43 AM [facility] Component Name Value Ref Range Wound Culture Rare Staphylococcus epidermidis (A) ?? Gram Stain No WBCs or organisms seen ?? Specimen Collected on Wound - Structure of lumbar vertebral column (body structure) 04/29/2020 6:43 PM Organism Antibiotic Method Susceptibility Staphylococcus epidermidis Clindamycin GREGORY <=0.12 ug/ml: Susceptible Inducible Clindamycin Resistance GREGORY NEG ug/ml: Negative Levofloxacin GREGORY <=0.12 ug/ml: Susceptible Comment: Appended report. These results have been appended to a previously final verified report. Staphylococcus species may develop resistance during prolonged therapy with quinolones. ??Isolates that are initially susceptible may become resistant within three to four days after initiation of therapy. Testing of repeat isolates may be warranted. Linezolid GREGORY 1 ug/ml: Susceptible Comment: Appended report. These results have been appended to a previously final verified report. Oxacillin GREGORY >=4 ug/ml: Resistant Rifampin GREGORY <=0.5 ug/ml: Susceptible Comment: Appended report. These results have been appended to a previously final verified report. Tetracycline GREGORY <=1 ug/ml: Susceptible Trimethoprim + Sulfamethoxazole GREGORY <=10 ug/ml: Susceptible Vancomycin GREGORY 2 ug/ml: Susceptible Pertinent Imaging: CT lumbar spine 07/14 (uploaded to PACS) showed evidence of osteomyelitis in L5/S1 vertebral body endplate which appears worsened. Extensive soft tissue thickening posteriorly which extends into the canal presumably relates to infection and appears similar. All active medications have been reviewed. Antimicrobials during the hospital stay: Vancomycin - 07/14 - present Entecavir - indefinite Assessment/Recommendations: #Lumbar vertebral osteomyelitis - patient with history of MRSE osteomyelitis initially diagnosed in04/2020 with possible recurrence/persistent infection during admission in May. He then was without appropriate antibiotics for at least two weeks before being started on linezolid. Given he has ongoing immunosuppression, would benefit from bacteriocidal agent rather than bacteriostatic agent like linezolid. The question is does he simply have the original infection which has been inadequately treated or does he have another organism not yet identified which explains why he continues to have pain and progression on imaging. CT shows involvement of S1 which was not previously identified, which might suggest ongoing or progressive infection. Not sure if repeat sampling would be feasible or beneficial, would probably favor empiric treatment for 6-8 weeks. No hardware in place. - No fluid available for sampling per IR, ok to treat empirically - Continue vancomycin while admitted - On discharge, would favor treatment with dalbavancin IV weekly x2 doses with concurrent oral levofloxacin (renally dosed 250 mg daily) or alternatively ceftaroline infusions q12 hours x 6-8 weeks (would require line for this) ID will continue to follow until discharge antibiotic plans are finalized. These recommendations were discussed with the primary team. Please page [phone] with any additional questions or concerns. Thank you for the consult. Please page [phone] during day-time hours and [phone] in evenings and weekends with any additional questions or concerns. Thank you for the consult. RUPESH NUNN MD 07/17/2020 10:13 AM Cosigned by Dav Johnson MD at 07/17/2020 3:34 PM EST Associated attestation - Dav Johnson MD - 07/17/2020 3:34 PM EST Infectious Disease Attending Note Leoncio Rollins Jr. was seen with the fellow, resident or student. If seen with a student, the patient had previously also been discussed with the fellow. I personally interviewed and examined the patient. I reviewed the documentation by the fellow, resident or student and agree unless documented otherwise below. Reason for today's visit: osteomyelitis Past medical, family, and social histories reviewed as previously documented. Assessment & Plan Leoncio Rollins Jr. is a 45 y.o. male. The medical issues being addressed in today's encounter are as follows: Vertebral osteomyelitis - prior cx's with RODNEY at OSH, GPCs failed to grow here last time - no further intervention or imaging per NSGY/IR - setting up IV abx with home HD seems challenging from a many fronts, including dosing with daily HD - I favor discussing the following regiment with pharmacy: - Dalbavancin 1500mg IV weekly x2 + Levaquin 250mg daily, or - Ceftaroline 200mg IV q12 (would need a central line for this) - would plan for a 6-8 week course - ok to maintain on Vancomycin while inpatient Dav Johnson MD Attending Physician Department of Internal Medicine, Division of Infectious Diseases 07/17/2020 3:33 PM [phone] * Kenya Diop DO - 07/17/2020 7:26 AM EST Images from the original note were not included. Department of Internal Medicine Transplant Nephrology Progress Note Patient: Leoncio Rollins Jr. Assessment and Plan End-Stage Renal Disease on Home Hemodialysis, with electrolyte derangements on admission Access: LUE AVF HD unit: Home Hemo, 5 days/weekly Electrolytes: Na: 140 K: 5.1 Cl: 102 Ma.3 Ca: 8.6 Phos: 9.0 Acid Base Status: Anion Gap: 12 Bicarb: 26 Bone Mineral Disease: Ca: 8.6 PO4: 9.0 Alb: 3.2 PTH: 574.0 on 06/10/2020 Vit D: 15.8 on 01/14/2019 Hemodynamics: Goal <130/80 BP: 123/68 Anemia of Chronic Disease Hgb 7.8 Plt 96 Iron 22 on 06/26/2020 Ferritin 508 on 06/26/2020 TIBC: 167 on 06/26/2020 Goal HgB >7 MEDs: ?? Plan - HD today - Consider oral Fe supplementation. IV iron contraindicated given concern for infection. - Monitor urine output closely, strict I/O, daily weights. - Avoid nephrotoxins (NSAIDs, MADAN-I, ARB, Contrast dye) - Daily renal panel with phosphorus level. - Renally dose all medications. Thank you for allowing us to participate in the care of this patient. Case discussed with consult attending. Please do not hesitate to give us a call for any questions. Kenya Diop DO Nephrology Fellow PGY-4 Pager #: [phone] Reason for Consult ESRD on HD. Chief Complaint No chief complaint on file. Interval History Patient was seen this am. BP today: 123/68. Creatinine today is 8.26. Seen on HD this am. Tolerating well. Discussed with HD nurse. Medications Current Facility-Administered Medications: ??? acetaminophen (TYLENOL) tablet 650 mg, 650 mg, Oral, Q4H PRN, Sonu Rose DO ??? aspirin chewable tablet 81 mg, 81 mg, Oral, Daily with breakfast, Sonu Rose DO, 81mg at 07/16/20 0939 ??? carBAMazepine (TEGRETOL) tablet 200 mg, 200 mg, Oral, Nightly (2099), Sonu Rose DO, 200 mg at 07/16/202027 ??? cycloSPORINE modified (NEORAL) capsule 100 mg, 100 mg, Oral, BID, Sonu Rose, , 100 mg at 07/16/202028 ??? dextrose 50 % in water (D50W) iv Syrg 25 mL, 25 mL, Intravenous, Q15 Min PRN OR dextrose 50% in water (D50W) iv Syrg 50 mL, 50 mL, Intravenous, Q15 Min PRN, Sonu Rose DO ??? entecavir (BARACLUDE) tablet 0.5 mg, 0.5 mg, Oral, Q7 Days, Sonu Rose DO ??? famotidine (PEPCID) tablet 20 mg, 20 mg, Oral, Daily 0900, Sonu Rose DO, 20 mg at 07/16/20 0939 ??? gabapentin (NEURONTIN) capsule 100 mg, 100 mg, Oral, BID, Sonu Rose DO, 100 mg at 07/16/202028 ??? glucose chewable tablet 12 g, 12 g, Oral, Q15 Min PRN, Sonu Rose DO ??? heparin (porcine) injection 5,000 Units, 5,000 Units, Subcutaneous, 3 times per day, Addison Mendoza MD, 5,000 Units at 07/17/20 0646 ??? hydrALAZINE (APRESOLINE) tablet 100 mg, 100 mg, Oral, Q8H, Sonu Rose DO, 100 mg at109/17/19 0646 ??? insulin lispro (humaLOG) injection 0-5 Units, 0-5 Units, Subcutaneous, TID AC, Sonu Rose DO, 1 Units at 07/16/20 1852 ??? melatonin Tab 6 mg, 6 mg, Oral, Nightly (2100), Sonu Rose DO, 6 mg at 07/16/202028 ? ? methocarbamoL (ROBAXIN) tablet 500 mg, 500 mg, Oral, 4x Daily AC & HS, Sonu Roes DO, 500 mg at 07/17/20 0646 ??? metoprolol tartrate (LOPRESSOR) tablet 50 mg, 50 mg, Oral, BID, Addison Mendoza MD, 50 mg at 07/16/202028 ??? NIFEdipine (PROCARDIA-XL) 24 hr tablet 90 mg, 90 mg, Oral, BID, Sonu Rose DO, 90 mg at 07/16/202027 ??? ondansetron (ZOFRAN) injection 4 mg, 4 mg, Intravenous, Q6H PRN, Addison Mendoza MD, 4 mg at 07/16/202253 ??? oxyCODONE (ROXICODONE) immediate release tablet 5 mg, 5 mg, Oral, Q4H PRN, Sonu Rose DO, 5 mg at 07/16/202252 ??? polyethylene glycol (MIRALAX) packet 17 g, 17 g, Oral, Daily PRN, Sonu Rose DO, 17g at 07/15/202314 ??? quetiapine (SEROQUEL) half tablet 12.5 mg, 12.5 mg, Oral, Nightly (2099), Sonu Rose DO, 12.5 mg at 07/16/202027 ??? sodium chloride 0.9 % infusion, 20 mL/hr, Intravenous, Continuous, Addison Mendoza MD, Last Rate: 20 mL/hr at 07/16/202030, 20 mL/hr at 07/16/202030 ??? Place saline lock, , , Once AND sodium chloride flush 10 mL, 10 mL, Intravenous, QS, Sonu Rose DO, 10 mL at 07/16/202029 ??? terazosin (HYTRIN) capsule 10 mg, 10 mg, Oral, Nightly (2099), Addison Mendoza MD, 10 mg at 07/16/202027 ??? vancomycin intermittent/pulse dosing PLACEHOLDER ORDER, , Intravenous, UD PRN, Rene Ewing MD Physical Examination Vitals: 07/17/20420 BP: 123/68 Pulse: 84 Resp: 17 Temp: 98.3 ??F (36.8 ??C) SpO2: 90% Patient Vitals for the past 4 hrs: BP Temp Temp src Pulse Resp SpO2 12/04/20 0421 123/68 98.3 ??F (36.8 ??C) Axillary 84 17 90 % Wt Readings from Last 3 Encounters: 07/14/20 (!) 268 lb (121.6 kg) 06/22/20 (!) 306 lb (138.8 kg) 06/07/20 (!) 251 lb 15.8 oz (114.3 kg) Intake/Output Summary (Last 24 hours) at 07/17/2020 0723 Last data filed at 07/17/2020 0504 Gross per 24 hour Intake 480 ml Output 700 ml Net -220 ml General appearance: NAD, obese Ears: hearing decreased. Neck: Increased neck circumference, trachea midline Lungs: No RD, Heart: RR Abdomen: ND Extremities: 2+ pitting edema LE b/l Laboratory Date Recent Labs 07/15/20 0542 07/16/20 1231 07/17/20 0607 WBC 5.6 3.0* 3.1* HGB 6.9* 6.7* 7.8* HCT 21.5* 20.8* 24.1* MCV 91.3 90.4 89.6 PLT 132* 100* 96* Recent Labs 07/14/20 2334 07/15/20 0542 07/16/20 0600 07/17/20 0607 NA 141 142 139 140 K 6.2* 6.3* 5.1 5.1 CL 105 105 103 102 CO2 21 22 26 26 BUN 72* 73* 41* 42* CREATININE 11.30* 11.21* 7.57* 8.26* GLUCOSE 103* 87 109* 152* CALCIUM 8.8 8.7 8.3* 8.6 MG 2.3 2.3 -- -- PHOS 9.3* 9.0* -- -- ANIONGAP 15 15 10 12 Lab Results Component Value Date PTH 574.0 (H) 06/10/2020 CALCIUM 8.6 07/17/2020 PHOS 9.0 (H) 07/15/2020 [id number] 15.8 (L) 01/14/2019 No results for input(s): COLORU, CLARITYU, PH, PROTEINUA, PHUR, LABSPEC, GLUCOSEU, BLOODU, LEUKOCYTESUR, NITRITE, BILIRUBINUR, UROBILINOGEN, RBCUA, WBCUA, BACTERIA, AMORPHOUS, CRYSTAL, CASTS in the last 72 hours. Invalid input(s): KEYTONESU No results for input(s): NAUR, KUR, CLUR in the last 72 hours. Invalid input(s): CO2UR, CRUR No results found for: MICROALBUR, [id number] Lab Results Component Value Date IRON 22 06/26/2020 TIBC 167 06/26/2020 FERRITIN 508 06/26/2020 Lab Results Component Value Date [id number] 499 07/22/2019 Lab Results Component Value Date COLORU Yellow 07/20/2019 CLARITYU Cloudy (A) 07/20/2019 PROTEINUA >=500 (A) 07/20/2019 PHUR 6.0 07/20/2019 LABSPEC 1.017 07/20/2019 GLUCOSEU 150 (A) 07/20/2019 BLOODU Small (A) 07/20/2019 LEUKOCYTESUR Negative 07/20/2019 NITRITE Negative 07/20/2019 BILIRUBINUR Negative 07/20/2019 UROBILINOGEN <2.0 07/20/2019 RBCUA 6 (H) 07/20/2019 WBCUA 1 07/20/2019 BACTERIA Few (A) 07/20/2019 In addition to the above an extensive amount of complex data in the patients lab and chart were reviewed. Diagnostic Imaging Reviewed in EMR. This note was copied forward from previously composed documentation. I have reviewed and updated the history, review of systems, physical exam, data, assessment and plan of the note so that it reflects the evaluation and management of the patient for 07/17/2020. Cosigned by Destin Rawls MD at 07/17/2020 9:11 PM EST Associated attestation - Destin Rawls MD - 07/17/2020 9:11 PM EST I have seen and examined the patient, reviewed the notes, assessments, and/or procedures performed by the fellow/resident/BUTTON RECLAIMER and I concur with her/his documentation of the patient. Review of labs, pathology reports, radiograph reports, and medical records confirm the findings noted above. I have edited the note where appropriate. HD today Anemia management per dialysis protocol Low K diet Destin Rawls MD Transplant Nephrology Attending * Addison Mendoza MD - 07/16/2020 4:11 PM EST Hospital Medicine Attending Daily Progress Note Chief Complaint / Reason for Follow-Up Leoncio Rollins Jr. is a 45 y.o. male on hospital day 2. The principal reason for today's follow up visit is Osteomyelitis ([facility] Dx) and leg weakness He has hx of spinal surgery for epidural abscess on 04/2020 , admitted to on 05/28/2020 with backpian with recurrent epidural abscess and osteo. CT guided fluid aspiration through IR which was done 06/03 with 2 mL of purulent fluid were aspirated. Eventually he was transferred to [facility] to continue vancomycin and for rehab. However, her left [facility] on 06/25/2020 but went to OSH 07/14 morning due to acute worsening of his lower back pain in the same area he had osteo/epidural abscess. Patient has hx of liver transplant and on cyclosporin. Interval History Feelilng better with more strength in his legs. However, still weak; unable to sit up in the bed By himself. No fever, chills, SOB. Lower lumbar/sacral back pain is about The same. Good appetite. Review of Systems (focused) As above. 10 points ROS performed and otherwise negative. Medications Scheduled Meds: ??? aspirin 81 mg Oral Daily with breakfast ??? carBAMazepine 200 mg Oral Nightly (2099) ??? cycloSPORINE modified 100 mg Oral BID ??? enoxaparin 30 mg Subcutaneous Daily 0900 ??? entecavir 0.5 mg Oral Q7 Days ??? famotidine 20 mg Oral Daily 0900 ??? gabapentin 100 mg Oral BID ??? hydrALAZINE 100 mg Oral Q8H ??? insulin lispro 0-5 Units Subcutaneous TID AC ??? melatonin 6 mg Oral Nightly (2099) ? ? methocarbamoL 500 mg Oral 4x Daily AC & HS ??? metoprolol tartrate 25 mg Oral BID ??? NIFEdipine 90 mg Oral BID ??? QUEtiapine 12.5 mg Oral Nightly (2099) ??? sodium chloride 10 mL Intravenous QS ??? terazosin 10 mg Oral Nightly (2099) Continuous Infusions: PRN Meds:acetaminophen, dextrose 50 % in water (D50W) OR dextrose 50 % in water (D50W), glucose, oxyCODONE, polyethylene glycol, vancomycin intermittent/pulse dosing PLACEHOLDER ORDER Vital Signs Temp: [97.8 ??F (36.6 ??C)-99.3 ??F (37.4 ??C)] 98.3 ??F (36.8 ??C) Heart Rate: [80-102] 97 Resp: [16-20] 18 BP: (168-211)/(68-97) 173/68 Intake/Output Summary (Last 24 hours) at 07/16/2020 1010 Last data filed at 07/16/2020 0837 Gross per 24 hour Intake 620 ml Output 2400 ml Net -1780 ml Physical Exam Physical Exam Constitutional: General: He is not in acute distress. Appearance: He is obese. He is not ill-appearing. Comments: Very hard of hearing. HENT: Head: Normocephalic and atraumatic. Right Ear: External ear normal. Left Ear: External ear normal. Nose: Nose normal. Mouth/Throat: Mouth: Mucous membranes are moist. Pharynx: Oropharynx is clear. No oropharyngeal exudate. Eyes: General: No scleral icterus. Extraocular Movements: Extraocular movements intact. Conjunctiva/sclera: Conjunctivae normal. Neck: Musculoskeletal: Normal range of motion and neck supple. No neck rigidity. Cardiovascular: Rate and Rhythm: Normal rate and regular rhythm. Pulses: Normal pulses. Heart sounds: Normal heart sounds. No murmur. Pulmonary: Effort: Pulmonary effort is normal. No respiratory distress. Breath sounds: Normal breath sounds. Abdominal: General: Abdomen is flat. Bowel sounds are normal. There is no distension. Palpations: Abdomen is soft. Tenderness: There is no abdominal tenderness. Musculoskeletal: Normal range of motion. General: Tenderness (to palpation in the lower lumbar/sacral area.) present. No swelling. Right lower leg: No edema. Left lower leg: No edema. Comments: Able to raise both legs more than yeterday, resting in the bed, against the garvity, due to weakness. Good plantar- and dorsiflexion in both feet. Skin: General: Skin is dry. Coloration: Skin is not jaundiced. Neurological: Mental Status: He is alert and oriented to person, place, and time. Psychiatric: Mood and Affect: Mood normal. Behavior: Behavior normal. Thought Content: Thought content normal. Judgment: Judgment normal. Laboratory Data Lab 07/15/20 0542 07/14/20 2334 WBC 5.6 5.2 HEMOGLOBIN 6.9* 7.5* HEMATOCRIT 21.5* 23.4* MEAN CORPUSCULAR VOLUME 91.3 90.5 PLATELETS 132* 146 Lab 07/16/20 0600 07/15/20 0542 07/14/20 2334 SODIUM 139 142 141 POTASSIUM 5.1 6.3* 6.2* CHLORIDE 103 105 105 CO2 26 22 21 BUN 41* 73* 72* CREATININE 7.57* 11.21* 11.30* GLUCOSE 109* 87 103* Lab 07/16/20 0600 07/15/20 0542 07/14/20 2334 CALCIUM 8.3* 8.7 8.8 MAGNESIUM -- 2.3 2.3 PHOSPHORUS -- 9.0* 9.3* Lab 07/16/20 0600 07/14/20 2334 INR 1.2* 1.2* PROTHROMBIN TIME 15.7* 15.6* Lab 07/16/20 0600 07/15/20 0542 07/14/20 2334 ALT 6* -- 5* AST 10* -- 9* ALK PHOS 54 -- 63 BILIRUBIN TOTAL 0.4 -- 0.4 BILIRUBIN DIRECT 0.11 -- 0.10 ALBUMIN 3.1* 3.4* 3.6 Diagnostic Studies None today Assessment & Plan Leoncio Rollins Jr. is a 45 y.o. male on hospital day 2. The medical issues being addressed in today's encounter are as follows: Principal Problem: Osteomyelitis ([facility] Dx) 1. Osteo/discitis at L4-L5. Recurrent problem, originated with the epidural abscess in 04/2020. Has been on Vancomycin but could not continue since he left [facility] on the . Now with worsened osteo, per CT L-spine from OSH. Back on Vancomycin upon admission. ID recs appreciated. Will continue on Vancomycin while as inpatient. He is feeling better today Patient does not want to go to [facility] or a SNF. Wants to go home. Pharmacy has submitted the other options of antibiotics for approval, with the hope of d/c to home. I called neurosurgery for input for the need for repeat MRI and possible intervention; was recommended to follow-up with IR, given his leg weakness. Called IR and discussed. CT images from 07/15 does not reveal any paraspinal abscess. Even it is there, it cata be very small and not drainable. Hence, no indication for any drainage. Continue on abx for total of 6-8 weeks, per ID. 2. Anemia; H/H is trending down and now < 7. Patient is feeling weak. 2 units of blood transfusion today. 3. ESRD on HS. Fistula in the left wrist area with good Bruit. Has home HD which he does 5 days a week. Dialysis due today. I spoke with the nephrology consult and was told that plan is for the HD today. He has electrolyte abnormalities and need HD to correct that. 4. Hyperkalemia; Better with HD. patient is asymptomatic for his K. Cont on HD. 5. S/p liver transplant for SAL cirrhosis in 2018. On cyclosporin 10 mg BID. Cellcept held on 05/29/2020 by hepatology. Hep B positive liver donor, on lifelong Entacavir. MELD score of 22 on 06/08. - Daily MELD labs - Hepatology consult pending. - Entecavir 0.5 mg weekly - Cyclosporin 100 mg BID, follow up cyclosporin level. - Continue to hold Cellcept 6. Pulm HTN: ECHO on 07/2019 with PAP 50 mmg HG, Has JC but not compliant with CPAP NO acute issue now but need to avoid rapid fluid shifts. 7. DM; HgbA1c 5.4 on 06/26. Cont on low dose SSI. Gabapentin, carbamezpine for ? Neuropathy? Will continue for now. 8. GERD; cont on Famotidine. 9. HTN: BP is not optimal. Hydralazine 100 mg TID, metoprolol 25 mg BID and Nifedipine 90 mg BID. Has been on these meds with good BP in the past. Will increase metoprolol to 50 mg BID. He may need more medication for BP control. Consider clonidine; will discuss with renal. Will follow-up on BP. Diet: Diet Orders Diet renal starting at 07/14 2031 Code Status: Full Code Nadine ZAVALA FACP Attending Physician Department of Internal Medicine Pager [phone]) 10:10 AM, 07/16/2020 - * Kelly Banerjee, PT - 07/16/2020 3:22 PM EST Physical Therapy Physical Therapy Treatment Name: Leoncio Oviedo Eh Marques : 1975 Attending Physician: Addison Vaca* Admission Diagnosis: VERTEBRAL OSTEOMYELITIS Date: 07/16/2020 Room: 8025/U8025 Reviewed Pertinent hospital course: Yes Hospital Course PT/OT: Pt presents from OSH with back pain; CT L-spine(07/14): evidence of osteomyelitis in L5/S1 vertebral body endplate which appears worsened. Extensive soft tissue thickening posteriorly which extends into the canal presumably relates to infection and appears similar; PMHx: ESRD on home HD, SAL cirrhosis s/p liver txp 2017, pulm HTN, JC, T2DM, epidural abscess and L5-S1 osteomyelitis Precautions: none Activity Level: Activity as tolerated Aide: none Assessment PT entered room to obtain Yana Plus from room and pt requesting to perform LE therapeutic exercises2/2 inability to perform EOB activity due to Hgb 6.7. Recommendation Recommendation: IP Rehab Equipment Recommended: Defer until further assessment Outcome Measures AM-PAC 6 Clicks Basic Mobility Inpatient Short Form: PT 6 Clicks Score: 8 Mobility Recommendations for Staff Patient ability: Bed in chair position during mealtimes (2-3 times per day) Cognition Arousal/Alertness: Alert Orientation Level: Oriented X4 Behavior: Appropriate;Cooperative Comments: [facility] Pain Pain Score: (no complaints during treatment session) Mobility Bed Mobility Supine to Sit: (Deferred 2/2 Hgb 6.7) Exercise Therapeutic Exercises Side: bilateral Extremity: lower extremity Supine Exercises: Ankle pumps (AAROM);Short arc quads (AROM - cues for eccentric control);ABduction/ADduction (AAROM);Heel slides(AROM) Reps/Comments: x 10 reps each Pt with improved R ankle DF strength (2+/5) this date. Position after Treatment and Safety Handoff Position after treatment and safety handoff Position after therapy session: Bed Details: RN notified;Call light/ needs within reach Alarms: Bed Alarms Status: Unchanged from previous setting Goals Goals Met: None Collaborated with: Patient Patient Stated Goal: to go home Goals to be met by: 07/22/20 Patient will transition from supine to sit: Minimal assistance Patient will transition from sit to supine: Minimal assistance Patient will transfer from sit to stand: Will tolerate assessment Patient will transfer bed/chair: Will tolerate assessment Patient will sit edge of bed: Contact Guard assistance, time at EOB, while participating in seated dynamic balance activities Time at EOB: 10 mins Pt Will report pain with functional mobility at: 4/10 or less Long-term goal to be met by: 07/29/20 Spanish Teacher Goal : Patient will transition from supine to sit with CGA Patient/Family Education Educated patient on the role of physical therapy, goals, plan of care, importance of increased activity, discharge recommendations and home exercise program and fall prevention strategies, including need for supervision/ assistance with OOB activity; patient verbalized understanding and demonstrated understanding. Handout(s) issued: none. Plan Plan Treatment/Interventions: LE strengthening/ROM, Endurance training, Patient/family training, Equipment eval/education, Gait training, Neuromuscular Reeducation, Therapeutic Exercise, Therapeutic Activity PT Frequency: minimum 3x/week The plan of care and recommendations assesses the patient's and/or caregiver's readiness, willingness, and ability to provide or support functional mobility and ADL tasks as needed upon discharge. Kelly Banerjee PT, DPT [facility] Pager: Department: Hours: 7:00-5:30 Time Start Time: 1500 Stop Time: 1517 Time Calculation (min): 17 min Charges $Therapeutic Exercise: 8-22 mins Problem [...] Dx) ??? Vertebral osteomyelitis (CMS Dx) Past Medical History Past Medical History: Diagnosis [...] TIPS PROCEDURE 10/2016 ??? TIPS Revision 04/2017 * Kelly Banerjee, PT - 07/16/2020 2:47 PM EST Physical Therapy/Occupational Therapy Reason Patient Not Seen Name: Leoncio Rollins Jr. : 1975 Attending Physician: Addison Vaca* Admission Diagnosis: VERTEBRAL OSTEOMYELITIS Date: 07/16/2020 Precautions: Precautions: none Reviewed Pertinent hospital course: Yes Attempt at 951 and 1449 Unable to see patient due to: 951 attempt - pt on phone. 1449 attempt - pt not appropriate for functional mobility 2/2 pending 2 units PRBC 2/2 Hgb 6.7. Will follow up as able. Kelly Banerjee PT, DPT [facility] Pager: Department: Hours: -Th 7:00-5:30 * Kenya Diop DO - 07/16/2020 1:31 PM EST Images from the original note were not included. Department of Internal Medicine Transplant Nephrology Progress Note Patient: Leoncio Rollins Jr. Assessment and Plan End-Stage Renal Disease on Home Hemodialysis, with electrolyte derangements on admission Access: LUE AVF HD unit: Home Hemo, 5 days/weekly ?? Plan - Will plan for HD tomorrow if patient remains in house. - Monitor urine output closely, strict I/O, daily weights. - Avoid nephrotoxins (NSAIDs, MADAN-I, ARB, Contrast dye) - Daily renal panel with phosphorus level. - Renally dose all medications. Thank you for allowing us to participate in the care of this patient. Case discussed with consult attending. Please do not hesitate to give us a call for any questions. Kenya Diop DO Nephrology Fellow PGY-4 Pager #: [phone] Reason for Consult ESRD on HD. Chief Complaint No chief complaint on file. Interval History Patient was seen this am. BP today: 170/73. Creatinine today is 7.57. Pleasant. Tolerated HD without issue. NAOE. Medications Current Facility-Administered Medications: ??? acetaminophen (TYLENOL) tablet 650 mg, 650 mg, Oral, Q4H PRN, Sonu Rose, DO ??? aspirin chewable tablet 81 mg, 81 mg, Oral, Daily with breakfast, Sonu Rose DO, 81mg at 07/16/2039 ??? carBAMazepine (TEGRETOL) tablet 200 mg, 200 mg, Oral, Nightly (2099), Sonu Rose DO, 200 mg at 07/15/20 2317 ??? cycloSPORINE modified (NEORAL) capsule 100 mg, 100 mg, Oral, BID, Sonu Rose DO, 100 mg at 07/16/20 0938 ??? dextrose 50 % in water (D50W) iv Syrg 25 mL, 25 mL, Intravenous, Q15 Min PRN OR dextrose 50% in water (D50W) iv Syrg 50 mL, 50 mL, Intravenous, Q15 Min PRN, Sonu Rose DO ??? enoxaparin (LOVENOX) for prophylaxis syringe 30 mg/0.3 mL, 30 mg, Subcutaneous, Daily 0900, Sonu Rose DO, 30 mg at 07/15/20 0918 ??? entecavir (BARACLUDE) tablet 0.5 mg, 0.5 mg, Oral, Q7 Days, Sonu Rose DO ??? famotidine (PEPCID) tablet 20 mg, 20 mg, Oral, Daily 0900, Sonu Rose DO, 20 mg at 07/16/20 0939 ??? gabapentin (NEURONTIN) capsule 100 mg, 100 mg, Oral, BID, Sonu Rose DO, 100 mg at 07/16/20 0939 ??? glucose chewable tablet 12 g, 12 g, Oral, Q15 Min PRN, Sonu Rose DO ??? hydrALAZINE (APRESOLINE) tablet 100 mg, 100 mg, Oral, Q8H, Sonu Rose DO, 100 mg at109/16/19 0544 ??? insulin lispro (humaLOG) injection 0-5 Units, 0-5 Units, Subcutaneous, TID AC, Sonu Rose DO, 1 Units at 07/16/20 0940 ??? melatonin Tab 6 mg, 6 mg, Oral, Nightly (2100), Sonu Rose DO, 6 mg at 07/15/20 2316 ? ? methocarbamoL (ROBAXIN) tablet 500 mg, 500 mg, Oral, 4x Daily AC & HS, Sonu Rose DO, 500 mg at 07/16/2039 ??? metoprolol tartrate (LOPRESSOR) tablet 25 mg, 25 mg, Oral, BID, Sonu Rose DO, 25 mg at 07/16/2039 ??? NIFEdipine (PROCARDIA-XL) 24 hr tablet 90 mg, 90 mg, Oral, BID, Sonu Rose DO, 90 mg at 07/16/2039 ??? ondansetron (ZOFRAN) injection 4 mg, 4 mg, Intravenous, Q6H PRN, Addison Mendoza MD, 4 mg at 07/16/20 1114 ??? oxyCODONE (ROXICODONE) immediate release tablet 5 mg, 5 mg, Oral, Q4H PRN, Sonu Rose DO, 5 mg at 07/15/205 ??? polyethylene glycol (MIRALAX) packet 17 g, 17 g, Oral, Daily PRN, Sonu Rose DO, 17g at 07/15/205 ??? quetiapine (SEROQUEL) half tablet 12.5 mg, 12.5 mg, Oral, Nightly (2099), Sonu Rose DO, 12.5 mg at 07/15/20 2317 ??? sodium chloride 0.9 % infusion, 20 mL/hr, Intravenous, Continuous, Addison Mendoza MD ??? Place saline lock, , , Once AND sodium chloride flush 10 mL, 10 mL, Intravenous, QS, Sonu Rose DO, 10 mL at 07/16/20 0544 ??? terazosin (HYTRIN) capsule 10 mg, 10 mg, Oral, Nightly (2099), Addison Mendoza MD, 10 mg at 07/15/206 ??? vancomycin (VANCOCIN) 1,000 mg in sodium chloride 0.9% 250 mL ADDaptor IVPB, 1,000 mg, Intravenous, Once, Addison Mendoza MD ??? vancomycin intermittent/pulse dosing PLACEHOLDER ORDER, , Intravenous, UD PRN, Rene Ewing MD Physical Examination Vitals: 07/16/20 1234 BP: 170/73 Pulse: 82 Resp: 18 Temp: 97.1 ??F (36.2 ??C) SpO2: 91% Patient Vitals for the past 4 hrs: BP Temp Temp src Pulse Resp SpO2 07/16/20 1234 170/73 97.1 ??F (36.2 ??C) Axillary 82 18 91 % Wt Readings from Last 3 Encounters: 07/14/20 (!) 268 lb (121.6 kg) 06/22/20 (!) 306 lb (138.8 kg) 06/07/20 (!) 251 lb 15.8 oz (114.3 kg) Intake/Output Summary (Last 24 hours) at 07/16/2020 1331 Last data filed at 07/16/2020 0837 Gross per 24 hour Intake 380 ml Output 2400 ml Net -2020 ml General appearance: NAD, alert Ears: hearing decreased. Head: NCAT Mouth: mmm Neck: Increased neck circumference Lungs: No RD, Heart: RR Abdomen: soft, NT, obese Extremities: 2+ pitting edema LE b/l Psych: uncooperative Laboratory Date Recent Labs 07/14/20 23307/15/20 0542 07/16/20 1231 WBC 5.2 5.6 3.0* HGB 7.5* 6.9* 6.7* HCT 23.4* 21.5* 20.8* MCV 90.5 91.3 90.4 PLT 146 132* 100* Recent Labs 07/14/20 2334 07/15/20 0542 07/16/20 0600 NA 141 142 139 K 6.2* 6.3* 5.1 CL 105 105 103 CO2 21 22 26 BUN 72* 73* 41* CREATININE 11.30* 11.21* 7.57* GLUCOSE 103* 87 109* CALCIUM 8.8 8.7 8.3* MG 2.3 2.3 -- PHOS 9.3* 9.0* -- ANIONGAP 15 15 10 Lab Results Component Value Date PTH 574.0 (H) 06/10/2020 CALCIUM 8.3 (L) 07/16/2020 PHOS 9.0 (H) 07/15/2020 [id number] 15.8 (L) 01/14/2019 No results for input(s): COLORU, CLARITYU, PH, PROTEINUA, PHUR, LABSPEC, GLUCOSEU, BLOODU, LEUKOCYTESUR, NITRITE, BILIRUBINUR, UROBILINOGEN, RBCUA, WBCUA, BACTERIA, AMORPHOUS, CRYSTAL, CASTS in the last 72 hours. Invalid input(s): KEYTONESU No results for input(s): NAUR, KUR, CLUR in the last 72 hours. Invalid input(s): CO2UR, CRUR No results found for: MICROALBUR, [id number] Lab Results Component Value Date IRON 22 06/26/2020 TIBC 167 06/26/2020 FERRITIN 508 06/26/2020 Lab Results Component Value Date [id number] 499 07/22/2019 Lab Results Component Value Date COLORU Yellow 07/20/2019 CLARITYU Cloudy (A) 07/20/2019 PROTEINUA >=500 (A) 07/20/2019 PHUR 6.0 07/20/2019 LABSPEC 1.017 07/20/2019 GLUCOSEU 150 (A) 07/20/2019 BLOODU Small (A) 07/20/2019 LEUKOCYTESUR Negative 07/20/2019 NITRITE Negative 07/20/2019 BILIRUBINUR Negative 07/20/2019 UROBILINOGEN <2.0 07/20/2019 RBCUA 6 (H) 07/20/2019 WBCUA 1 07/20/2019 BACTERIA Few (A) 07/20/2019 In addition to the above an extensive amount of complex data in the patients lab and chart were reviewed. Diagnostic Imaging Reviewed in EMR. This note was copied forward from previously composed documentation. I have reviewed and updated the history, review of systems, physical exam, data, assessment and plan of the note so that it reflects the evaluation and management of the patient for 07/16/2020. Cosigned by Destin Rawls MD at 07/16/2020 8:54 PM EST Associated attestation - Destin Rawls MD - 07/16/2020 8:54 PM EST I have seen and examined the patient, reviewed the notes, assessments, and/or procedures performed by the fellow/resident/BUTTON RECLAIMER and I concur with her/his documentation of the patient. Review of labs, pathology reports, radiograph reports, and medical records confirm the findings noted above. I have edited the note where appropriate. HD yest K better Consider HD in AM Destin Rawls MD Transplant Nephrology Attending * Rupesh Nunn MD - 07/16/2020 9:12 AM EST Images from the original note were not included. Department of Infectious Diseases Infectious Diseases Consult follow-up 07/16/2020 Patient Name: Leoncio Rollins Jr. Admit Date: 07/14/2020 Hospital Day: 3 AUTHOR: RUPESH NUNN MD Reason for consult: recurrent osteomyelitis Interval history: - No acute events overnight - Feels much better after working with therapy yesterday - No fevers/chills - Is most interested in going home and continuing to heal and going to a nearby outpatient rehab facility for ongoing therapy rather than going to SNF/IPR directly from hospital HPI: Patient is a 45 yo male with PMH of ESRD on iHD, SAL cirrhosis s/p OLT (2018), pHTN, DM2, JC, DM2, and recent epidural abscess and lumbar osteomyelitis who comes to the hospital with recurrent backpain. Patient was admitted to [facility] 04/28-05/13 with back pain, fever and AMS. MRI showed L5/S1 osteomyelitis and discitis with fluid collection concerning for epidural abscess. He underwent L5 laminectomy and I&D of abscess by neurosurgery. Wound culture from this grew MRSE, blood cultures were negative. He was discharged to continue on IV vancomycin with MWF iHD as well as oral doxycycline. He was then admitted here 05/28-06/08 with ongoing low back pain and LE weakness. MRI L spine againnoted osteomyelitis and discitis at L4-5, with 5.1 x 2.9 x 4.4 cm fluid collection which could represent seroma vs recurrent abscess. NSGY at that time did not recommend any intervention, cultures from IR aspiration showed GPC but no growth. Presumed to be the same organism as initial infection (MRSE), and treated with vancomycin with iHD. He was discharged to [facility] where he was only slightly able to participate in therapy due to pain. Left AMA on 06/25 due to perceived lack of progress. Reportedly could not receive vancomycin due to lack of PICC line, and so was switched to linezolid per hisnephrologist around 07/10, at this point had been about 2 weeks without antibiotics. It seems there was confusion as patient does home hemodialysis 5d/wk and so did not receive IV vancomycin post dialysis as a typical patient might. He states his primary issues is pain which radiatesdown the R leg. Doesn't really have worsening weakness, just remains weak and doesn't want to leavetoo early to continue getting therapy. Review of Systems: Positives appear in bold; otherwise listed symptoms are negative. General: fever, chills Cardio: chest pain, palpitations Pulm: cough, shortness of breath GI: nausea, diarrhea Skin: rash, itching Physical Exam: BP 173/68 (BP Location: Right leg, Patient Position: Lying) Pulse 97 Temp 98.3 ??F (36.8 ??C) (Oral) Resp 18 Ht 5' 7 (1.702 m) Wt (!) 268 lb (121.6 kg) SpO2 95% BMI 41.97 kg/m?? Gen: Awake and alert. NAD. No acute distress. Obese. HEENT: NCAT. Sclera white, EOMI. MMM. Neck: Supple. No lymphadenopathy. CV: RRR. No m/r/g. Distal pulses 2+ BL. Cap refill < 2 sec Resp: Breathing comfortably on RA. CTAB. Abd: BS+. Soft. Non-distended. NTTP. Skin: No obvious lesions or rashes. No sacral ulcers appreciated. MSK: No edema, no joint effusions. Full range of motion of arms and legs. Neuro: Alert oriented x3. Spontaneous movement of arms and legs bilaterally. 3/5 strength in b/l lower extremities. Sensation intact. Lines: PIV, b/l lower arm fistulas Labs: Recent / pertinent lab results reviewed; selected results listed below: WBC 5.6 ESR 21 (from 21 on 06/22) CRP 23.8 (from 94 on 06/22) Vanc trough 10.2 K down to 5.1 today Microbiology: Blood Cx: 07/14 - NGTD Other Cx: Wound Culture - Wound, Spine, LumbarResulted: 06/01/2020 10:43 AM [facility] Component Name Value Ref Range Wound Culture Rare Staphylococcus epidermidis (A) ?? Gram Stain No WBCs or organisms seen ?? Specimen Collected on Wound - Structure of lumbar vertebral column (body structure) 04/29/2020 6:43 PM Organism Antibiotic Method Susceptibility Staphylococcus epidermidis Clindamycin GREGORY <=0.12 ug/ml: Susceptible Inducible Clindamycin Resistance GREGORY NEG ug/ml: Negative Levofloxacin GREGORY <=0.12 ug/ml: Susceptible Comment: Appended report. These results have been appended to a previously final verified report. Staphylococcus species may develop resistance during prolonged therapy with quinolones. ??Isolates that are initially susceptible may become resistant within three to four days after initiation of therapy. Testing of repeat isolates may be warranted. Linezolid GREGORY 1 ug/ml: Susceptible Comment: Appended report. These results have been appended to a previously final verified report. Oxacillin GREGORY >=4 ug/ml: Resistant Rifampin GREGORY <=0.5 ug/ml: Susceptible Comment: Appended report. These results have been appended to a previously final verified report. Tetracycline GREGORY <=1 ug/ml: Susceptible Trimethoprim + Sulfamethoxazole GREGORY <=10 ug/ml: Susceptible Vancomycin GREGORY 2 ug/ml: Susceptible Pertinent Imaging: CT lumbar spine 07/14 (uploaded to PACS) showed evidence of osteomyelitis in L5/S1 vertebral body endplate which appears worsened. Extensive soft tissue thickening posteriorly which extends into the canal presumably relates to infection and appears similar. All active medications have been reviewed. Antimicrobials during the hospital stay: Vancomycin - 07/14 - present Entecavir - indefinite Assessment/Recommendations: #Lumbar osteomyelitis - patient with history of MRSE osteomyelitis initially diagnosed in 04/2020 with possible recurrence/persistent infection during admission in May. He then was without appropriate antibiotics for at least two weeks before being started on linezolid. Given he has ongoing immun osuppression, would benefit from bacteriocidal agent rather than bacteriostatic agent like linezolid. The question is does he simply have the original infection which has been inadequately treated ordoes he have another organism not yet identified which explains why he continues to have pain and progression on imaging. CT shows involvement of S1 which was not previously identified, which might suggest ongoing or progressive infection. Not sure if repeat sampling would be feasible or beneficial, would probably favor empiric treatment for 6-8 weeks. No hardware in place. - Discuss repeat sampling or imaging with NSGY, from ID perspective does not require repeat MRI - Continue vancomycin while admitted - On discharge, would favor treatment with dalbavancin x 2-3 doses with concurrent oral levofloxacin (renally dosed 250 mg daily) or alternatively ceftaroline infusions x 6-8 weeks (although this would be difficult to coordinate/dose with his unusal home hemodialysis schedule) ID will continue to follow. These recommendations were discussed with the primary team. Please page [phone] with any additional questions or concerns. Thank you for the consult. Please page [phone] during day-time hours and [phone] in evenings and weekends with any additional questions or concerns. Thank you for the consult. RUPESH NUNN MD 07/16/2020 9:13 AM Cosigned by Dav Johnson MD at 07/16/2020 12:27 PM EST Associated attestation - Dav Johnson MD - 07/16/2020 12:27 PM EST Infectious Disease Attending Note Leoncio Rollins JrUbaldo was seen with the fellow, resident or student. If seen with a student, the patient had previously also been discussed with the fellow. I personally interviewed and examined the patient. I reviewed the documentation by the fellow, resident or student and agree unless documented otherwise below. Reason for today's visit: osteomyelitis Past medical, family, and social histories reviewed as previously documented. Assessment & Plan Leoncio Rollins Jr. is a 45 y.o. male. The medical issues being addressed in today's encounter are as follows: Vertebral osteomyelitis - prior cx's with MRSE at OSH, GPCs failed to grow here last time - consult NSGY to ensure no need for further imaging or intervention - setting up IV abx with home HD seems challenging from a many fronts, including dosing with daily HD - I favor discussing the following regiment with pharmacy: - Dalbavancin 1500mg IV weekly x2 + Levaquin 250mg daily, or - Ceftaroline 200mg IV q12 (would need a central line for this) - would plan for a 6-8 week course - ok to maintain on Vancomycin while inpatient Dav Johnson MD Attending Physician Department of Internal Medicine, Division of Infectious Diseases 07/16/2020 12:26 PM [phone] * Ayde Segura, OT - 07/15/2020 2:53 PM EST Occupational Therapy Initial Assessment Name: Leoncio Rollins : 1975 Attending Physician: Addison Vaca* Admission Diagnosis: VERTEBRAL OSTEOMYELITIS Date: 07/15/2020 Room: 8025/[id number] Reviewed Pertinent hospital course: Yes Hospital Course PT/OT: Pt presents from OSH with back pain; CT L-spine(07/14): evidence of osteomyelitis in L5/S1 vertebral body endplate which appears worsened. Extensive soft tissue thickening posteriorly which extends into the canal presumably relates to infection and appears similar; PMHx: ESRD on home HD, SAL cirrhosis s/p liver txp 2017, pulm HTN, JC, T2DM, epidural abscess and L5-S1 osteomyelitis Precautions: none Activity Level: Activity as tolerated Aide: none Recommendation Recommendation: IP Rehab Equipment Recommendations: Defer at this time Assessment Assessment: Decreased Functional Mobility, Decreased ADL status, Decreased Balance, Decreased activity tolerance, Decreased self-care transfers, Decreased IADLs Prognosis for OT goals: Good Outcome Measures AM-PAC 6 Clicks Daily Activity Inpatient Short Form: OT 6 Clicks Score: 16 Home Living/Prior Function Patient able to provide accurate information at this time: Yes Lives With: Spouse, Son Assistance available: 24 hour supervision Type of Home: House Home Entry: Ramped entrance Home Layout: One level Bathroom Shower/Tub: Walk-in shower Bathroom Equipment: Grab bars in shower, Shower chair Home Equipment: Rollator, Wheelchair-manual Additional Comments: was recently at [place], has primarily been in bed since being back at home Prior Function Functional Mobility: Bedbound(for the past few weeks) Receives Help From: Family ADL Assistance: Needs assistance(using bedpan) IADL Assistance: Needs assistance Comments: last sat on the EOB and stood a couple weeks ago Pain Pain Score: (9/10 legs, 8/10 back) Pain Location: Back(legs) Pain Descriptors: Sharp;Constant Pain Intervention(s): Repositioned;Ambulation/increased activity Therapist reported pain to: RN notified Cognition Overall Cognitive Status: Within Functional Limits Cognitive Assessment: Arousal/ Alertness;Orientation Level;Behavior Arousal/Alertness: Alert Orientation Level: Oriented X4 Behavior: Appropriate;Cooperative Comments: pt is hard of hearing Vision Overall Vision/ Perception: Within Functional Limits [...] observed during functional activites Neuromuscular Overall Sensation: Within Functional Limits(intact to light touch but reported unable to feel socksB) Functional Mobility Bed Mobility Supine to Sit: Moderate assistance;of 2 people;increased time to complete task;head of bed elevated;towards the left Sit to Supine: Moderate assistance;head of bed flat;towards the right;use of handrail Balance Sitting - Static: (minimal to contact guard assistance, BUE support on bed) Sitting-Dynamic: Minimal Assistance(BUE support on bed) ADL Lower Body Dressing: Total assistance Lower Body Dressing Deficit: Don/doff R sock;Don/doff L sock Location Assessed LE Dressing: Seated edge of bed Lower Body Dressing Deficit Additional Comments: attempted to don B shoes but BLE/feet swollen Treatment provided during/after evaluation Total treatment time (minutes): 25 Therapeutic activities: sitting balance & tolerance, bed mobility Other: extensive education regarding discharge planning and role of therapy Position after Treatment/Safety Handoff Position after therapy session: Bed in chair position Details: RN notified;Call light/ needs within reach(B feet positioned in neutral with rolled blanket at footboard) Alarms: Bed Alarms Status: Activated and interfaced unchanged from previous settings Plan Plan Treatment Interventions: ADL retraining, Therapeutic Activity, Compensatory technique education, Excercise, Activity Tolerance training, Functional transfer training, Continued evaluation, Patient/Family training OT Frequency: minimum 3x/week The plan of care and recommendations assesses the patient's and/or caregiver's readiness, willingness, and ability to provide or support functional mobility and ADL tasks as needed upon discharge. Goals Goals to be met in: 1 week Patient stated goal: to go home, to decrease pain during mobility and ADLs, to increase independence Patient will complete supine to sit in prep for ADLs: Minimal assistance Patient will complete functional chair transfer: Will tolerate assessment Pt Will tolerate completeing ADLs with pain less than 4/10: . Miscellaneous Goal #1: Patient will tolerate sit to stand transfer assessment in prep for OOB ADLs Miscellaneous Goal #2: Patient will complete therapeutic activity seated EOB x5 minutes with CGA for sitting balance Long-Term Goal : Patient will complete supine to sit with CGA in prep for OOB ADLs terminal operations manager goal to be met in: 2 weeks Collaborated with: Patient Patient/Family Education Educated patient on the role of occupational therapy, OT goals, OT plan of care, discharge recommendation, the importance of safety and the importance of increased activity, transfer training and fall prevention strategies including need for supervision/ assistance with OOB activity and use of calllight. patient verbalized understanding, demonstrated understanding and needed cues. OT Time Start Time: 838 Stop Time: 935 Time Calculation (min): 57 min OT Charges $OT Evaluation Mod Complex 45 Min: 1 Procedure $Therapeutic Activity: 23-37 mins Ayde Segura OTR/L [facility] Pager #: [phone] Office #: [phone] Hours: Monday-Monday, 8:00-4:30 Problem List Patient Active Problem List Diagnosis [...] pain ??? Hepatitis B carrier (CMS Dx) Past Medical History Past Medical History: Diagnosis [...] TIPS PROCEDURE 10/2016 ??? TIPS Revision 04/2017 * Addison Mendoza MD - 07/15/2020 12:43 PM EST Hospital Medicine Attending Daily Progress Note Chief Complaint / Reason for Follow-Up Leoncio Rollins Jr. is a 45 y.o. male on hospital day 1. The principal reason for today's follow up visit is Osteomyelitis (CMS Dx). He has hx of spinal surgery for epidural abscess on 04/2020 , admitted to on 05/28/2020 with backpian with recurrent epidural abscess and osteo. CT guided fluid aspiration through IR which was done 06/03 with 2 mL of purulent fluid were aspirated. Eventually he was transferred to [place] to continue vancomycin and for rehab. However, her left [place] on 06/25/2020 but went to OSH yesterday morning due to acute worsening of his lower back pain in the same area he had osteo/epidural abscess. Patient has hx of liver transplant and on cyclosporin. Interval History No fever, chills, SOB. Lower lumbar/sacral back pain is about 5/10. Was able to sit at the side of the bed with help of PT Good appetite. Review of Systems (focused) As above. 10 points ROS performed and otherwise negative. Medications Scheduled Meds: ??? aspirin 81 mg Oral Daily with breakfast ??? carBAMazepine 200 mg Oral Nightly (2099) ??? cycloSPORINE modified 100 mg Oral BID ??? enoxaparin 30 mg Subcutaneous Daily 0900 ??? entecavir 0.5 mg Oral Q7 Days ??? famotidine 20 mg Oral Daily 0900 ??? gabapentin 100 mg Oral BID ??? hydrALAZINE 100 mg Oral Q8H ??? insulin lispro 0-5 Units Subcutaneous TID AC ??? melatonin 6 mg Oral Nightly (2099) ? ? methocarbamoL 500 mg Oral 4x Daily AC & HS ??? metoprolol tartrate 25 mg Oral BID ??? NIFEdipine 90 mg Oral BID ??? QUEtiapine 12.5 mg Oral Nightly (2099) ??? sodium chloride 10 mL Intravenous QS Continuous Infusions: PRN Meds:acetaminophen, dextrose 50 % in water (D50W) OR dextrose 50 % in water (D50W), glucose, oxyCODONE, polyethylene glycol, vancomycin intermittent/pulse dosing PLACEHOLDER ORDER Vital Signs Temp: [97.5 ??F (36.4 ??C)-99.1 ??F (37.3 ??C)] 98.9 ??F (37.2 ??C) Heart Rate: [84-100] 84 Resp: [18] 18 BP: (143-191)/(74-102) 170/80 Intake/Output Summary (Last 24 hours) at 07/15/2020 1241 Last data filed at 07/15/2020 1113 Gross per 24 hour Intake 240 ml Output 375 ml Net -135 ml Physical Exam Physical Exam Constitutional: General: He is not in acute distress. Appearance: He is obese. He is not ill-appearing. Comments: Very hard of hearing. HENT: Head: Normocephalic and atraumatic. Right Ear: External ear normal. Left Ear: External ear normal. Nose: Nose normal. Mouth/Throat: Mouth: Mucous membranes are moist. Pharynx: Oropharynx is clear. No oropharyngeal exudate. Eyes: General: No scleral icterus. Extraocular Movements: Extraocular movements intact. Conjunctiva/sclera: Conjunctivae normal. Neck: Musculoskeletal: Normal range of motion and neck supple. No neck rigidity. Cardiovascular: Rate and Rhythm: Normal rate and regular rhythm. Pulses: Normal pulses. Heart sounds: Normal heart sounds. No murmur. Pulmonary: Effort: Pulmonary effort is normal. No respiratory distress. Breath sounds: Normal breath sounds. Abdominal: General: Abdomen is flat. Bowel sounds are normal. There is no distension. Palpations: Abdomen is soft. Tenderness: There is no abdominal tenderness. Musculoskeletal: Normal range of motion. General: Tenderness (to palpation in the lower lumbar/sacral area.) present. No swelling. Right lower leg: No edema. Left lower leg: No edema. Comments: Unable to raise both legs more than 2 inches off the bed, due to weakness. But good plantar- and dorsiflexion in both feet. Skin: General: Skin is dry. Coloration: Skin is not jaundiced. Neurological: Mental Status: He is alert and oriented to person, place, and time. Psychiatric: Mood and Affect: Mood normal. Behavior: Behavior normal. Thought Content: Thought content normal. Judgment: Judgment normal. Laboratory Data Lab 07/15/20 0542 07/14/20 2334 WBC 5.6 5.2 HEMOGLOBIN 6.9* 7.5* HEMATOCRIT 21.5* 23.4* MEAN CORPUSCULAR VOLUME 91.3 90.5 PLATELETS 132* 146 Lab 07/15/20 0542 07/14/20 2334 SODIUM 142 141 POTASSIUM 6.3* 6.2* CHLORIDE 105 105 CO2 22 21 BUN 73* 72* CREATININE 11.21* 11.30* GLUCOSE 87 103* Lab 07/15/20 0542 07/14/20 2334 CALCIUM 8.7 8.8 MAGNESIUM 2.3 2.3 PHOSPHORUS 9.0* 9.3* Lab 07/14/20 2334 INR 1.2* PROTHROMBIN TIME 15.6* Lab 07/15/20 0542 07/14/20 2334 ALT -- 5* AST -- 9* ALK PHOS -- 63 BILIRUBIN TOTAL -- 0.4 BILIRUBIN DIRECT -- 0.10 ALBUMIN 3.4* 3.6 Diagnostic Studies None today Assessment & Plan Leoncio Rollins Jr. is a 45 y.o. male on hospital day 1. The medical issues being addressed in today's encounter are as follows: Principal Problem: Osteomyelitis ([facility] Dx) 1. Osteo/discitis at L4-L5. Recurrent problem. Has been on Vancomycin but could not continue since he left [place] on the . Now with worsened osteo, per CT L-spine from OSH. Back on Vancomycin upon admission. ID recs appreciated. Will continue on Vancomycin today. Will discuss with the pharmacy for other options, if patient is not willing to be inpatient rehab. Will get neurosurgery input for the need for repeat MRI and possible intervention, given his leg weakness. 2. ESRD on HS. Fistula in the left wrist area with good Bruit. Has home HD which he does 5 days a week. Dialysis due today. I spoke with the nephrology consult and was told that plan is for the HD today. He has electrolyte abnormalities and need HD to correct that. 3. Hyperkalemia; Need HD. patient is asymptomatic for his K. Patient was given and dextrose and insulin upon admission. He has hx of hyperkalemia, given is ESRD and on HD. Pt is getting HD today. 4. S/p liver transplant for SAL cirrhosis in 2018. On cyclosporin 10 mg BID. Cellcept held on 05/29/2020 by hepatology. Hep B positive liver donor, on lifelong Entacavir. MELD score of 22 on 06/08. - Daily MELD labs - Hepatology consult pending. - Entecavir 0.5 mg weekly - Cyclosporin 100 mg BID, follow up cyclosporin level. - Continue to hold Cellcept 5. Pulm HTN: ECHO on 07/2019 with PAP 50 mmg HG, Has JC but not compliant with CPAP NO acute issue now but need to avoid rapid fluid shifts. 6. DM; HgbA1c 5.4 on 06/26. Cont on low dose SSI. Gabapentin, carbamezpine for ? Neuropathy? Will continue for now. 7. GERD; cont on Famotidine. 8. HTN: Hydralazine 100 mg TID, metoprolol 25 mg BID and Nifedipine 90 mg BID. Will follow-up on BP. Diet: Diet Orders Diet renal starting at 07/14 2031 Code Status: Full Code Damaris ZAVALA.Jonathan FACP Attending Physician Department of Internal Medicine Pager [phone]) 12:41 PM, 07/15/2020 - * Stef Tijerina, PharmD - 07/15/2020 12:20 PM EST Images from the original note were not included. [facility] Clinical Pharmacy Service: Vancomycin Monitoring Consult --Assessment and Plan-- ?? Leoncio Rollins Jr. is a 45 y.o. male being treated with vancomycin for OM and epidural abscess. ?? Pulse dose vancomycin due to ESRD/HD usual MWF. ?? Patient has received vancomycin with level 13.9 today prior to HD. ?? Will order vancomycin 1000 mg once after HD today. ?? Will check vancomycin serum concentration Monday AM.. ?? Goal vancomycin trough of 15-20 mg/L ?? Pharmacy will continue to monitor therapy for efficacy and toxicity. Landen Tijerina, PharmD Clinical Pharmacist, Internal Medicine Contact: OOHLALA Mobile preferred Office: [phone] Patient is allergic to codeine sulfate and codeine. Current Anti-Infectives Dose Frequency Start End entecavir (BARACLUDE) tablet 0.5 mg 0.5 mg Every 7 days 07/14/2020 Admin Instructions: ADMINISTER ON EMPTY STOMACH (2 HOURS BEFORE OR AFTER MEALS).
LEVEL 2 HAZARDOUS MEDICATION Route: Oral vancomycin (VANCOCIN) 1,000 mg in sodium chloride 0.9% 250 mL ADDaptor IVPB (Completed) 1,000 mg Once 07/14/2020 07/15/2020 Admin Instructions: Use ADDaptor product - Mix Thoroughly Before Administration Route: Intravenous vancomycin intermittent/pulse dosing PLACEHOLDER ORDER Use as directed PRN 07/14/2020 Admin Instructions: Patient is receiving intermittent/pulse vancomycin dosing based on random serumlevels. NOTE:This is NOT an active medication order. If a dose of vancomycin is needed, it must be entered as a one-time dose by physicians or pharmacists. Route: Intravenous documented within (last 72 hours) Date/Time Action Medication Dose Rate 07/15/20 0148 New Bag vancomycin (VANCOCIN) 1,000 mg in sodium chloride 0.9% 250 mL ADDaptor IVPB 1,000 mg 250 mL/hr --Objective Data-- Vitals: 07/15/20 0012 07/15/20 0558 07/15/20 0724 07/15/20 1113 BP: (!) 176/91 174/74 (!) 143/97 170/80 Pulse: 87 89 100 84 Resp: 18 18 18 18 Temp: 97.8 ??F (36.6 ??C) 98.4 ??F (36.9 ??C) 99.1 ??F (37.3 ??C) 98.9 ??F (37.2 ??C) TempSrc: Oral Oral Oral Oral SpO2: 92% 93% 93% 93% Weight: Height: I/O last 3 completed shifts: In: - Out: 375 [Urine:375] WBC, BUN, Creatinine (Last 7 days) WBC BUN Creatinine 5.6 10E3/uL 07/15/20 0542 73 mg/dL 07/15/20 0542 11.21 mg/dL 07/15/20 0542 5.2 10E3/uL 07/14/20 2334 72 mg/dL 07/14/20 2334 11.30 mg/dL 07/14/20 2334 [place] body weight: 66.1 kg (145 lb 11.6 oz) Adjusted ideal body weight: 88.3 kg (194 lb 10.2 oz) --Cultures-- Microbiology Results Date and Time Order Name Sensitivity Status Organisms Specimen ID Source 07/15/2020 0004 #1 Blood culture-Peripheral site 1 Preliminary [id number] Peripheral 07/14/2020 2334 #2 Blood culture-Peripheral site 2 Preliminary [id number] Peripheral --Vancomycin Concentrations-- Lab Results (Last 7 days) Vanc Rdm 13.9 ug/mL 07/15/20 1039 * Kelly Banerjee, PT - 07/15/2020 9:59 AM EST Physical Therapy Physical Therapy Initial Assessment and Treatment Name: Leoncio Rollins JrUbaldo : 1975 Attending Physician: Rene Ewing MD Admission Diagnosis: VERTEBRAL OSTEOMYELITIS Date: 07/15/2020 [id number] Pertinent hospital course: Yes Hospital Course PT/OT: Pt presents from OSH with back pain; CT L-spine(07/14): evidence of osteomyelitis in L5/S1 vertebral body endplate which appears worsened. Extensive soft tissue thickening posteriorly which extends into the canal presumably relates to infection and appears similar; PMHx: ESRD on home HD, SAL cirrhosis s/p liver txp 2018, pulm HTN, JC, T2DM, epidural abscess and L5-S1 osteomyelitis Precautions: none Activity Level: Activity as tolerated Aide: none Assessment Assessment: Impaired Bed Mobility, Impaired Transfers, Impaired Balance, Impaired Strength, Impaired Activity Tolerance Prognosis: Good Pt tolerated therapy session fairly well, however, limited by pain and weakness. Pt tolerated sitting at EOB with CGA-min A for sitting balance. Pt would benefit from continued therapy at inpatient rehab level of care upon d/c from [facility]. Recommendation Recommendation: IP Rehab Equipment Recommended: Defer until further assessment Outcome Measures AM-PAC 6 Clicks Basic Mobility Inpatient Short Form: PT 6 Clicks Score: 8 Mobility Recommendations for Staff Patient ability: Bed in chair position during mealtimes (2-3 times per day) Home Living/Prior Function Patient able to provide accurate information at this time: Yes Lives With: Spouse;Son Assistance available: 24 hour supervision Type of Home: House Home Entry: Ramped entrance Home Layout: One level Bathroom Shower/Tub: Walk-in shower Bathroom Equipment: Grab bars in shower;Shower chair Home Equipment: Rollator;Wheelchair-manual Additional Comments: was recently at [place], has primarily been in bed since being back at home Prior Function Functional Mobility: Bedbound(for the past few weeks) Receives Help From: Family ADL Assistance: Needs assistance(using bedpan) IADL Assistance: Needs assistance Comments: last sat on the EOB and stood a couple weeks ago Pain Pain Score: (9/10 legs, 8/10 back) Pain Location: Back(legs) Pain Descriptors: Sharp;Constant Pain Intervention(s): Repositioned;Ambulation/increased activity Therapist reported pain to: RN notified Vision Vision/Perception Overall Vision/ Perception: Within Functional Limits Cognition Overall Cognitive Status: Within Functional Limits Cognitive Assessment: Arousal/ Alertness;Orientation Level;Behavior Arousal/Alertness: Alert Orientation Level: Oriented to person;Oriented to place(cues for month, oriented to year) Behavior: Appropriate;Cooperative Comments: pt is hard of hearing Neuromuscular Overall Sensation: Within Functional Limits(intact to light touch but reported unable to feel socksB) Upper Extremity UE Assessment: Strength WFL ( at least 3+/5) as observed during functional activity Lower Extremity Lower Extremity LE Assessment: Impaired Impairments: Strength;ROM LE Strength: (L LE: hip flex 2-/5, knee ext 2/5, knee flex 3+/5, ankle DF 2/5; R LE: hip flex 2-/5,knee ext 2/5, knee flex 3+/5, ankle DF 1/5 LE ROM: (B ankle DF to neutral; B hamstring tightness noted) Functional Mobility Bed Mobility Supine to Sit: Moderate assistance;of 2 people Sit to Supine: Moderate assistance Balance Sitting - Static: Contact Guard Assistance to minimal assistance using B UE support on bed Sitting-Dynamic: Minimal Assistance Treatment provided during/after evaluation Total treatment time (minutes): 25 mins Therapeutic activites: bed mobility, sitting balance Position after Therapy/Safety Handoff Position after treatment and safety handoff Position after therapy session: Bed in chair position Details: RN notified;Call light/ needs within reach(B ankles positioned with rolled blankets at footboard) Alarms: Bed Alarms Status: Activated and interfaced unchanged from previous settings Goals Collaborated with: Patient Patient Stated Goal: to go home Goals to be met by: 07/22/20 Patient will transition from supine to sit: Minimal assistance Patient will transition from sit to supine: Minimal assistance Patient will transfer from sit to stand: Will tolerate assessment Patient will transfer bed/chair: Will tolerate assessment Patient will sit edge of bed: Contact Guard assistance, time at EOB, while participating in seated dynamic balance activities Time at EOB: 10 mins Pt Will report pain with functional mobility at: 4/10 or less Long-term goal to be met by: 07/29/20 Long-Term Goal : Patient will transition from supine to sit with CGA Patient/Family Education Educated patient on the role of physical therapy, goals, plan of care, importance of increased activity, discharge recommendations, home exercise program, transfer training and sitting balance and fall prevention strategies, including need for supervision/ assistance with OOB activity; patient verbalized understanding, demonstrated understanding and needed cues. Handout(s) issued: none. Plan Plan Treatment/Interventions: LE strengthening/ROM, Endurance training, Patient/family training, Equipment eval/education, Gait training, Neuromuscular Reeducation, Therapeutic Exercise, Therapeutic Activity PT Frequency: minimum 3x/week The plan of care and recommendations assesses the patient's and/or caregiver's readiness, willingness, and ability to provide or support functional mobility and ADL tasks as needed upon discharge. Kelly Banerjee PT, DPT [facility] Pager: Department: Hours: 7:00-5:30 Time Start Time: 0838 Stop Time: 0936 Time Calculation (min): 58 min Charges $PT Evaluation Mod Complex 30 Min: 1 Procedure $Therapeutic Activity: 2 units Problem List Patient [...] pain ??? Hepatitis B carrier (CMS Dx) Past Medical History Past Medical History: Diagnosis [...] TIPS PROCEDURE 10/2016 ??? TIPS Revision 04/2017 * Kesha Kumar RN - 07/15/2020 1:54 AM EST Hypoglycemia Note (for blood glucose <70 mg/dL) NOTE: For patients hypoglycemia is <60 mg/dL Patient found to be hypoglycemic. Time: 0127 Blood glucose: 66 mg/dL Treatment given to patient: other - see comments Comments: checked pt blood sugar prior to potassium protocol. Noted blood sugar was 66. Per hypoglycemia protocol- blood glucose will need to be rechecked in 15 minutes . Recheck time (s): 0128 Blood glucose result(s): 115 mg/dL Treatment given to patient (if needed): other-see comments Comments: Recheck blood sugar to see if it was a true hypoglycemic event, pt's recheck was 115. Will recheck pt in one hour per potassium protocol. Patient educated on signs, symptoms, and treatment of hypoglycemia. * Kelly Shelton, PharmD - 07/14/2020 11:12 PM EST Clinical Pharmacy Consult Pharmacy consulted for vancomycin monitoring by Dr. Sonu Rose DO. Dosage has been assessed and dosage was adjusted to vancomycin 1000mg once now. Patient has denied receiving IV abx outpatient since left AMA - likely okay to dose IV vancomycin tonight. Will obtain random level tomorrow AM and dose based on pre or post iHD levels. Pharmacy will continue to follow.Formal note to follow within 24 hours. Thank you for the consult. KELLY SHELTON PharmLachelle, [facility] [phone], Pharmacist seasonal retail merchandiser [phone] * Kesha Kumar RN - 07/14/2020 7:54 PM EST Pt arrived to [facility] via transport from OSH. S. Pt oriented to call light, staff, and room. Team notified of pt's arrival. No orders placed at this time. RN will continue to monitor. * Cristóbal Stewart MD - 07/14/2020 3:14 PM EST [facility] Department of Internal Medicine Outside Transfer / Direct Admission Note Referring Facility: Name: [facility] Records in Care Everywhere: No History, as reported: Leoncio Rollins Jr. is a 45 y.o. male with a past medical history of ESRD on home HD, SAL cirrhosiss/p liver txp 2018, pulm HTN, JC, T2DM, epidural abscess and L5-L5 osteomyelitis who presents withback pain. He was recently admitted to [facility] 05/28-06/08 for osteomyelitis and epidural abscess with discitis. He was discharged to [place] on vanc/cefepime but left AMA from there. It appears that he was prescribed PO linezolid outpatient but it is unclear if he is actively taking this per discussion with the referring provider. Mr. Rollins presents to the ED today with persistent back pain and generalized weakness. A CT scan was done and was concerning for persistent osteomyelitis. He is being transferred to [facility] Objective, as reported: Last Known Vitals: Temp: Afebrile HR: 89 BP: 173/83 Pertinent Physical Exam Findings Dorsiflexion contracture? on right but intact strength in the RLE. Healed surgical scar in lower Pertinent Lab Studies: WBC 6.5 Hgb 7.4 Platelets 161 Na 139 K 6.5 Cl 105 CO3 19 BUN 70 Cr 12.1 Pertinent Diagnostic Findings: EKG: NSR, no peaked T waves CT: Osteomyelitis L5-S1 Summary & Recommendations: Transfer was accepted to the Internal Medicine service. Level of care: Floor Upon arrival to [facility], receiving team to consider the following: - ID consult - Nephrology consult - Workup and management of vertebral osteo per admitting team Signed: CRISTÓBAL STEWART MD Attending Physician Department of Internal Medicine documented in this encounter H&P Notes * Scar Williamson DO - 07/14/2020 8:29 PM EST Department of Internal Medicine History & Physical Patient: Leoncio Rollins Jr. CSN: [id number] Chief Complaint Back pain History of Present Illness Leoncio Rollins Jr. is a 45 y.o. male with a history of ESRD on home hemodialysis, SAL cirrhosis s/p liver transplant in 2018, pHTN, JC, DM, epidural abscess, and lumbar osteomyelitis presenting to the hospital with back pain. Patient states that he woke up yesterday morning and was unable to movehis right leg with severe lower back pain. Patient was recently admitted to in May for osteomyelitis and epidural abscess with discitis. Originally on Cefepime and Vancomycin, transplant ID discontinued the Cefepime after fluid aspiration showing GPC in pairs but no growth after 3 days. Believed that osteomyelitis/epidural abscess is likely??secondary to previously identified MRSE (04/29 lumbar spine wound culture). He was discharged to [place] on Vancomycin (05/28/2020-07/22/2020) however left AMA because he felt he was moving backwards in term of his health. He attempted to get his Vancomycin with dialysis at home but stated the nurse could not give it without a PICC line. He reachedout to his outpatient gas torch solderer who started him on Linezolid because he was not able to receive his Vancomycin. He denies chest pain, SOB, abdominal pain, nausea, vomiting, bowel or bladder incontinence. Of note, patient presented to OSH prior to transfer to . Notable labs from OSH include potassium of 7.0, BUN of 70, creatinine of 12.1, repeat potassium at 6.5. He received a dose of Rocephin, Dilaudid, and 1L NS. Review of Systems General ROS: Negative for fever, chills, and night sweats Neurologic ROS: Positive for headache. Negative trauma, LOC, weakness, and dizziness Ophthalmic ROS: Negative for change in vision or discharge ENT ROS: Positive for B/L hearing loss. Negative for sore throat, or difficulty swallowing Cardiovascular ROS: Negative for chest pain and palpitations Respiratory ROS: Negative for SOB, wheezing, cough, and hemoptysis Gastrointestinal ROS: Negative for abdominal pain. Negative for nausea, vomiting, diarrhea, bowel incontinence. Genito-Urinary ROS: Negative for dysuria, hematuria, or urinary incontinence. Musculoskeletal ROS: Positive for lower back/sacral pain, B/L lower extremity pain. Positive for chronic muscle weakness in right foot. Dermatological ROS: Negative for rashes, lesions, itching Past Medical History Past Medical History: Diagnosis [...] file Gets together: Not on file Attends restorationism service: Not on file Active member of [...] History Narrative ??? Not on file Medications Home Meds: Prior [...] Feng CNP blood-glucose meter (ONETOUCH VERIO SYSTEM) [facility] Use as instructed. 10/18/17 Bere Feng CNP carBAMazepine (TEGRETOL) 200 mg tablet Take 200 mg by mouth at bedtime. Historical Provider, cycloSPORINE modified (NEORAL) 25 MG capsule Take [...] ,and Monday. Twice a week Historical Provider, famotidine (PEPCID) 20 MG tablet Take 20 mg by mouth daily. Historical Provider, fluticasone propionate (FLONASE) 50 mcg/actuation [...] MD lancets (ONETOUCH DELICA LANCETS) 33 gauge [facility] Use 1 strip as directed 4 times daily before meals and at bedtime. 10/18/17 Bere Feng CNP lidocaine-prilocaine (EMLA) cream Apply topically. 03/04/20 Historical Provider, melatonin 3 mg Tab Take [...] MD pen needle, diabetic 32 gauge x /32 [...] mouth at bedtime. 06/25/20 Jake Zavala MD vancomycin (VANCOCIN) IVPB 1000 mg with dialysis. 06/25/20 07/23/20 Jake Zavala MD Inpatient Meds: Scheduled: Continuous: PRN: Vital Signs Temp: [97.5 ??F (36.4 ??C)] 97.5 ??F (36.4 ??C) Heart Rate: [92] 92 Resp: [18] 18 BP: (191)/(102) 191/102 Intake/Output Summary (Last 24 hours) at 07/14/20202340 Last data filed at 07/14/20201953 Gross per 24 hour Intake -- Output 125 ml Net -125 ml Physical Exam Constitutional: NAD. Awake and alert. Obese. Head: Normocephalic, atraumatic. Eyes: EOMI. PERRLA. ENT: MMM. Oropharynx unremarkable. Neck: Trachea midline. No LAD. CV: RRR. No m/r/g. Normal S1, S2. 1+ peripheral edema. Pulmonary: CTA bilaterally. No wheezing or crackles. Normal respiratory effort. Abdomen: Soft, non-tender to palpation. No rebound, rigidity, or guarding. Normal bowel sounds. MSK: No clubbing or cyanosis. Peripheral pulses intact. Tenderness to palpation of lower lumbar spine. Skin: No rashes or jaundice. Well healed abdominal surgical incision. AVF in RUE. Neuro: A&Ox4. 2/5 B/L lower extremity weakness R>L. Laboratory Data CBC 06/25/2020 \ 7.8 / 5.2 \ / 301 / \ / 23.5 \ Differential 06/13/2020 N 68.0 L 18.0 M 8.0 E 2.0 B 0.0 Renal 06/22/2020 130 93 27 / ___ __ / 110 \ 5.2 27 6.49 \ Ca 8.6 (06/22/2020) Mg 2.1 (06/26/2020) Phos 5.4 (06/22/2020) Lipids Lab Results Component Value Date CHOLTOT 236 (H) 01/27/2020 TRIG 303 (H) 01/27/2020 HDL 32 (L) 01/27/2020 LDL 143 01/27/2020 LFTs 06/22/2020 \ 0.3 / \ 0. \ / 3 / \ / 59 \ PT/INR/PTT - 06/08/2020 PT 14.9 INR 1.2 PTT 28.6 Diagnostic Studies X-ray Comparison Images Final Result CT lumbar spine 07/14 (uploaded to PACS) showed evidence of osteomyelitis in L5/S1 vertebral body endplate which appears worsened. Extensive soft tissue thickening posteriorly which extends into the canal presumably relates to infection and appears similar. Assessment & Plan Leoncio Rollins Jr. is a 45 y.o. male being admitted to the hospital for back pain. Medical problemsbeing addressed in this encounter include the following: Principal Problem: Osteomyelitis ([facility] Dx) #Osteomyelitis #Epidural Abscess #Back/Lower Extremity Pain Patient with recent spinal surgery for epidural abscess in 04/2020. CT guided fluid aspiration through IR which was done 06/03 with 2 mL of purulent fluid were aspirated and sent for culture, which showed gram stain with GPCs in pairs??but no growth. Transplant ID decided that the osteomyelitis is likely secondary to previously identified MRSE (04/29 lumbar spine wound culture) without new organismand recommended stopping the cefepime (last dose 06/04). Started on Vancomycin and sent to [place]. Left [place] AMA with plans to receive Vancomycin with home dialysis however nursing staff was unable to give Vancomycin because he did not have a PICC line, reportedly. He reached out to his outpatient gas torch solderer who started him on Linezolid because he could not receive Vanc. Developed severe back pain with RLE weakness yesterday morning prompting his to visit OSH ED. Records from OSH show WBC 6.5and he is afebrile. CT lumbar spine 07/14 (uploaded to PACS) showed evidence of osteomyelitis in L5/S 1 vertebral body endplate which appears worsened. Extensive soft tissue thickening posteriorly which extends into the canal presumably relates to infection and appears similar. He denies bowel/bladder incontinence. Denies saddle anesthesia. No concerns for acute cord compression. - Consult Transplant ID - Pharmacy consult for Vanc dosing - Consider MRI lumbar spine for interval evaluation of osteomyelitis/epidural abscess. - PT/OT - Robaxin 500 mg QID, Tylenol 650 mg every 4 hours PRN, Oxycodone 5 mg every 4 hours PRN. - Follow up blood cultures, ESR, CRP. #ESRD on HD Patient receives dialysis Monday, Monday, Monday at home with AVF in [facility]. Notable labs from OSH 07/14 include potassium of 7.0, BUN of 70, creatinine of 12.1, repeat potassium at 6.5. S/P 1L fluidsfrom OSH. He does not appear to have any acute indications for urgent dialysis. He is able to make urine. - Nephrology consult for HD. - Avoid nephrotoxins - Daily weight, strict I/Os - Renal diet #SAL Cirrhosis s/p liver transplant 2017 Home regimen: Cyclosporine 100 mg BID and Cellcept. Cellcept held on 05/29/2020 by hepatology in the setting of infection and Cyclosporine was continued. Hep B positive liver donor, on lifelong Entacavir. MELD score of 22 on 06/08. - Daily MELD labs - Hepatology consult - Entecavir 0.5 mg weekly - Cyclosporin 100 mg BID, follow up cyclosporin level. - Hold Cellcept #Hyperkalemia Potassium elevated to 7.0 at OSH and 6.5 on repeat. Potassium 6.2 on admission. No ECG changes. - S/P insulin and glucose. #Pulmonary Hypertension On echo 07/2019 - PAP estimated to be 50 mmg Hg, likely due to JC/OHS, not compliant with BiPAP/CPAP. Had an appointment with Dr. Biswas 07/01/2020, it appears he did follow up with her. - Avoid rapid fluid shifts #Type 2 Diabetes Mellitus HbA1c 06/26 was 5.4. Improved from 7.4 in 12/2018. Patient reports he takes Humulin PRN at home. - Gabapentin 100 mg BID, Carbamazepime 200 mg daily - LDSSI #GERD - Famotidine 20 mg daily #HTN - Hydralazine 100 mg every 8 hours, metoprolol 25 mg BID, Nifedipine 90 mg BID #JC - Patient refuses to wear BiPAP at night. #Mood - Seroquel 12.5 mg nightly. Nutrition: Diet Orders Diet renal starting at 07/14 2031 Code Status: Full Code Signed: SCAR WILLIAMSON DO 07/14/2020, 11:41 PM Cosigned by Addison Mendoza MD at 07/15/2020 12:41 PM EST Associated attestation - Addison Mendoza MD - 07/15/2020 12:41 PM EST [facility] Medicine Attending Supervision Note Leoncio Oviedo Eh Marques was seen today on rounds without the resident physician. I personally interviewed and examined the patient. I reviewed the documentation by the resident and agree as documented unless otherwise stated below. Reason for today's visit: Osteomyelitis (CMS Dx) Supplemental History / ROS Recent hx of epidural abscess which was drained by IR and was on Vancomycin. RODNEY from 04/29 Lumbar spine wound culture. Patient was sent to [place] by he left AMA from [place] about 2 weeks ago. He is on home dialysis at home but could not get Vancomycin with dialysis since he did not have proper access for Vancomycin. However, he was started on Linezolid by his gas torch solderer. Patient went to [facility] in [place] yesterday when he woke up with severe back pain in the same area with increased leg weakness. Medical Decision Making: I conducted an independent review of the labs, procedures, and imaging pertinent to today's encounter through the EMR. Assessment & Plan Leoncio Rollins Jr. is a 45 y.o. male on hospital day 1. The medical issues being addressed in today's encounter are as follows: Principal Problem: Osteomyelitis (CMS Dx) His lumbar CT with worsened inflammation. NO fever, chills. He appears well. Able to raise both legs about 2 inches off the bed, against gravity, but good strength with dorsi- and planta flexion. -Will follow-up with ID adan. -Spoke with Renal. Plan dialysis today. ADDISON MENDOZA [facility].FACP Attending Physician Department of Internal Medicine [place]: [phone] 12:26 PM, 07/15/2020 documented in this encounter Consult Notes * Emilia Ortega RN - 07/19/2020 5:08 PM ESTAssociated Order(s): IP Consult to UGPIV IP Consult to UGPIV Consult performed by: Emilia Ortega RN Consult ordered by: Addison Mendoza MD Assessment/Recommendations: ugpiv placed in right forearm 20 g 1.88 in * Karli Schaefer RN MSN - 07/16/2020 11:26 AM EST HEALTH Care Management/Social Work Assessment Patient Information Hospital Day: 2 Inpatient/Observation: Inpatient Admit Date: 07/14/2020 Admission Diagnosis: VERTEBRAL OSTEOMYELITIS Attending provider: Addison Vaca* PCP: Edgar Fournier MD Home Pharmacy: [facility] [address] [address] [facility] [address] [facility] [phone] [facility] [address] [facility] [address] [facility] [address] Pertinent Medications Anticoagulation therapy: No New Diabetic: No Issues related to obtaining medications: Payor Information Medical Insurance Coverage: Payor: MEDICARE / Plan: MEDICARE A AND B / Product Type: Medicare / Secondary Payor: Functional Assessment Functional Assessment Assessment Information Obtained From:: Patient May We Obtain Collateral Information From Family, Friends and Neighbors?: Yes How do you wish to be addressed?: LEONCIO Current Mental Status: Awake, Oriented to Place Mental Status Prior to Admission: Unable to Assess Previous Self Harm/Suicidal Ideation: No Suicide Attempts: No Activities of Daily Living: Partial Assistance Needed ADL Comments: DOES HELP PATIENT Work History: Unemployed Marital Status: Number of children and their names: 3 ADULT SONS: CHESTER JOHN Relative Search Completed: No Demographics Correct:: Yes Discharge Destination: Home Current Living Arrangements Current Living Arrangements Current Living Arrangements: Home Type of Housing: House Who do you live with?: With Family What family member?: AND SON LAURA One Story or Two (check all that apply): One Story Enter the number of steps and rails to enter the residence: RAMP Enter the number of steps and rails inside the residence: NA History of Falls?: No Community Services Community Services Community Services at Home: Home Health Care(DOESNT KNOW NAME OF AGENCY) Home Health Services Types Prior to Admission: Long-Term Was any abuse reported by patient?: No Support Systems Emergency contact: Extended Emergency Contact Information Primary Emergency Contact: Kym Rollins Address: [address] [place] [address] Mobile Relation: Spouse Secondary Emergency Contact: Kimberly Rollins [facility] Relation: Mother Support Systems Primary Caregiver: Self, Family Times of available support: Limited 24/7 hands on (add comment) Marital Status: Number of children and their names: 3 ADULT SONS: CHESTER JOHN Relative Search Completed: No Demographics Correct:: Yes Discharge Destination: Home Next of Kin: KYM ROLLINS Next of Kin Relationship: Spouse Next of Kin Assessment Information Obtained From:: Patient Other Pertinent Information Advance Directives (For Healthcare) Advance Directive: Patient does not have advance directive Information Provided on Healthcare Directives (information about advanced directives, forgoing or with-drawing life-sustaining treatment, and withholding resuscitative services): No Healthcare Agent Appointed: No Pre-existing DNR/DNI Order: No Patient Requests Assistance: No Discharge Plan Met with patient to initiate discussion regarding discharge planning. Introduced self and role of case management/social work and provided contact information. Patient states he lives in a ranch style home that has a ramp to enter with his and son Laura. He reports that his assist him with ADL's and that he was active with a home health agency but does not remember the name of the agency. He reports no history of mental illness . He does home dialysis every day except Monday and Monday. He states he receives his dialysis solution from [facility], FAX= [phone] in [facility]. JANA OZUNA spoke to Marilee, dialysis nurse. She states that patient is not able to receive antibiotic in dialysate but he could come to [facility] for antibiotic however this has been tried previously and patient is noncompliant with coming as he would have to be transported in a and it is uncomfortable for him. She also states that patient has left AMA from a hospital here in [facility] and in [place]. JANA OZUNA spoke to Latia at Dr. Fournier's office . She states that patient was previously active with [employer]. She expressed concern with patient returning home. Latia states that [employer] had issues with patient's compliance with services and that he threatened to put ATB for dialysis directly into port. SULMA explained to Latia that this would be passed on to the team however we cannot make him go with therapy rec's of IPR. Patient denies any history of mental illness. SULMA spoke to patient regarding therapy rec's ofIPR and he declined stating there are no facilities near his home that accommodate the therapy and dialysis needs he has. Patient states that he will go home with home health and home therapy. Referral sent to [facility], awaiting a response. Barriers to Discharge Barriers to Discharge: Non-compliance(RECCOMENDED FOR IPR BUT REFUSED PLACEMENT) Anticipated Discharge Plan: HOME WITH HOME HEALTH Anticipated Discharge Date: 07/17/20 Anticipated Transportation: TBD Patient/Family aware and taking part in the discharge plan. Patient/family educated that once post-acute care needs have been identified, a provider list applicable to the identified post-acute care needs as well as the insurance provider will be provided, and patient/family have the freedom to choose their provider(s); financial interest(s) are disclosed as appropriate. JANA CC participated in interdisciplinary rounds with H1. Patient is not medically ready. Patient is pending potential IR procedure and pharmacy rec's Altagracia Schaefer MSN,BSN,RN [facility] [place] [facility] [phone] * Rose Lee RN - 07/15/2020 10:19 PM ESTAssociated Order(s): IP Consult to UGPIV IP Consult to UGPIV Consult performed by: Rose Lee RN Consult ordered by: Addison Mendoza MD Assessment/Recommendations: UG PIV #20g 1.88 angio placed to right AC. * Rupesh Nunn MD - 07/15/2020 8:41 AM ESTAssociated Order(s): INPATIENT CONSULT TO TRANSPLANT INFECTIOUS DISEASES Images from the original note were not included. Department of Infectious Diseases Infectious Diseases Consult follow-up 07/15/2020 Patient Name: Leoncio Rollins Jr. Admit Date: 07/14/2020 Hospital Day: 2 AUTHOR: RUPESH NUNN MD Reason for consult: recurrent osteomyelitis HPI: Patient is a 45 yo male with PMH of ESRD on iHD, SAL cirrhosis s/p OLT (2018), pHTN, DM2, JC, DM2, and recent epidural abscess and lumbar osteomyelitis who comes to the hospital with recurrent backpain. Patient was admitted to [facility] 04/28-05/13 with back pain, fever and AMS. MRI showed L5/S1 osteomyelitis and discitis with fluid collection concerning for epidural abscess. He underwent L5 laminectomy and I&D of abscess by neurosurgery. Wound culture from this grew MRSE, blood cultures were negative. He was discharged to continue on IV vancomycin with MWF iHD as well as oral doxycycline. He was then admitted here 05/28-06/08 with ongoing low back pain and LE weakness. MRI L spine againnoted osteomyelitis and discitis at L4-5, with 5.1 x 2.9 x 4.4 cm fluid collection which could represent seroma vs recurrent abscess. NSGY at that time did not recommend any intervention, cultures from IR aspiration showed GPC but no growth. Presumed to be the same organism as initial infection (MRSE), and treated with vancomycin with iHD. He was discharged to [facility] where he was only slightly able to participate in therapy due to pain. Left AMA on 06/25 due to perceived lack of progress. Reportedly could not receive vancomycin due to lack of PICC line, and so was switched to linezolid per hisnephrologist around 07/10, at this point had been about 2 weeks without antibiotics. It seems there was confusion as patient does home hemodialysis 5d/wk and so did not receive IV vancomycin post dialysis as a typical patient might. He states his primary issues is pain which radiatesdown the R leg. Doesn't really have worsening weakness, just remains weak and doesn't want to leavetoo early to continue getting therapy. Review of Systems: Positives appear in bold; otherwise listed symptoms are negative. General: fever, chills Cardio: chest pain, palpitations Pulm: cough, shortness of breath GI: nausea, diarrhea Skin: rash, itching Physical Exam: BP (!) 143/97 (BP Location: Left leg, Patient Position: Lying) Pulse 100 Temp 99.1 ??F (37.3 ??C) (Oral) Resp 18 Ht 5' 7 (1.702 m) Wt (!) 268 lb (121.6 kg) SpO2 93% BMI 41.97 kg/m?? Gen: Awake and alert. NAD. No acute distress. Obese. HEENT: NCAT. Sclera white, EOMI. MMM. Neck: Supple. No lymphadenopathy. CV: RRR. No m/r/g. Distal pulses 2+ BL. Cap refill < 2 sec Resp: Breathing comfortably on RA. CTAB. Abd: BS+. Soft. Non-distended. NTTP. Skin: No obvious lesions or rashes. No sacral ulcers appreciated. MSK: No edema, no joint effusions. Full range of motion of arms and legs. Neuro: Alert oriented x3. Spontaneous movement of arms and legs bilaterally. 3/5 strength in b/l lower extremities. Sensation intact. Lines: PIV, b/l lower arm fistulas Labs: Recent / pertinent lab results reviewed; selected results listed below: WBC 5.6 ESR 21 (from 21 on 06/22) CRP 23.8 (from 94 on 06/22) K 6.3 Microbiology: Blood Cx: 07/14 - NGTD Other Cx: n/a Pertinent Imaging: CT lumbar spine 07/14 (uploaded to PACS) showed evidence of osteomyelitis in L5/S1 vertebral body endplate which appears worsened. Extensive soft tissue thickening posteriorly which extends into the canal presumably relates to infection and appears similar. All active medications have been reviewed. Antimicrobials during the hospital stay: Vancomycin - 07/14 - present Entecavir Assessment/Recommendations: #Lumbar osteomyelitis - patient with history of MRSE osteomyelitis initially diagnosed in 04/2020 with possible recurrence/persistent infection during admission in May. He then was without appropriate antibiotics for at least two weeks before being started on linezolid. Given he has ongoing immun osuppression, would benefit from bacteriocidal agent rather than bacteriostatic agent like linezolid. The question is does he simply have the original infection which has been inadequately treated ordoes he have another organism not yet identified which explains why he continues to have pain and imaging findings. CT shows involvement of S1 which was not previously identified, which might suggestongoing or progressive infection. Not sure if repeat sampling would be feasible or beneficial, would probably favor empiric treatment for 6-8 weeks. No hardware in place. - Discuss repeat sampling or imaging with NSGY, from ID perspective does not require repeat MRI - Would favor treatment with dalbavancin x 2-3 doses with concurrent oral levofloxacin (renally dosed) or alternatively ceftaroline infusions x 6-8 weeks (although this would be difficult to coordinate/dose with his unusal home hemodialysis schedule) ID will continue to follow. These recommendations were discussed with the primary team. Please page [phone] with any additional questions or concerns. Thank you for the consult. Please page [phone] during day-time hours and [phone] in evenings and weekends with any additional questions or concerns. Thank you for the consult. RUPESH NNUN MD 07/15/2020 8:50 AM Cosigned by Dav Johnson MD at 07/15/2020 12:58 PM EST Associated attestation - Dav Johnson MD - 07/15/2020 12:58 PM EST Infectious Disease Attending Note Leoncio Rollins Jr. was seen with the fellow, resident or student. If seen with a student, the patient had previously also been discussed with the fellow. I personally interviewed and examined the patient. I reviewed the documentation by the fellow, resident or student and agree unless documented otherwise below. Reason for today's visit: osteomyelitis Past medical, family, and social histories reviewed as previously documented. Assessment & Plan Leoncio Rollins Jr. is a 45 y.o. male. The medical issues being addressed in today's encounter are as follows: Vertebral osteomyelitis - prior cx's with RODNEY at OSH, GPCs failed to grow here last time - difficulty with access to abx due to leaving [facility] and inability to get abx with HD at home - consult NSGY to ensure no need for further imaging or intervention - is this failure related to lack of abx or inappropriate coverage? - setting up IV abx with home HD seems challenging from a many fronts, including dosing with daily HD - I favor discussing the following regiment with pharmacy: - Dalbavancin 1500mg IV weekly x2 + Levaquin 250mg daily - Ceftaroline 200mg IV q12 (would need a central line for this) - would plan for a 6-8 week course Dav Johnson MD Attending Physician Department of Internal Medicine, Division of Infectious Diseases 07/15/2020 12:47 PM [phone] * Kenya Diop DO - 07/15/2020 6:19 AM ESTAssociated Order(s): IP CONSULT TO NEPHROLOGY Images from the original note were not included. Department of Internal Medicine Transplant Nephrology Consult History & Physical Note Patient: Leoncio Rollins Jr. Date of Admit: 07/14/2020 Referring physician: Rene Ewing MD Assessment and Plan End-Stage Renal Disease on Home Hemodialysis, with electrolyte derangements on admission Access: LUE AVF HD unit: Home Hemo, 5 days/weekly Plan - HD today 4hours low k bath. UF to DW. - Monitor urine output closely, strict I/O, daily weights. - Avoid nephrotoxins (NSAIDs, MADAN-I, ARB, Contrast dye) - Daily renal panel with phosphorus level. - Renally dose all medications. Thank you for allowing us to participate in the care of this patient. Case discussed with consult attending. Kenya Diop DO Nephrology Fellow PGY-4 Pager #: [phone] Chief Complaint No chief complaint on file. Reason for Consult ESRD on home HD History of Present Illness Patient seen on HD and was uncooperative and somnolent during interview. As a result, history was obtained primarily from chart review. Leoncio Rollins Jr. is a 45 y.o. y/o male with a PMHx of ESRD on home hemodialysis 5 times weekly thru LUE AVF, [facility], pHTN, JC, DM, epidural abscess, lumbar OM, obesity presenting for back pain with associated RLE weakness and back pain. He had a previous complicated course of lumbar osteomyelitis from MRSE epidural abscess treated with I&D, abx including vanco, linezolid. Renal service is consulted to manage ESRD on HD with electroylye derangements. Of note, the most recent labs demonstrated a creatinine of 11.21 with a BUN of 73. Electrolytes showed a sodium of 142, potassium of 6.3, chloride of 105, magnesium of 2.3, calcium of 8.7, and a phosphorus of 9.0. The patient acid base status was stable with a bicarbonate of 22. Most recent hemoglobin was 6.9 with platelets of 132. Review of Systems Unable to obtain due to patient's somnolence and uncooperation Past Medical History: Diagnosis Date ??? Acute pancreatitis ??? Anemia ??? Ascites ??? Diabetes mellitus ([facility] Dx) ??? Dialysis patient (CMS Dx) ??? Esophageal varices with bleeding (CMS Dx) ??? GERD (gastroesophageal reflux disease) ??? Hearing loss ??? Hepatic encephalopathy (CMS Dx) ??? Hypertension ??? 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 Pulmonary HTN (CMS Dx) ??? Sleep apnea ??? Vitamin D deficiency Past Surgical History: [...] 10/2016 ??? TIPS Revision 04/2017 Family History Problem Relation Age of Onset ??? Diabetes Sister ??? Anesthesia problems Neg Hx Social History Tobacco Use ??? Smoking status: Never Smoker ??? Smokeless tobacco: Never Used Substance Use Topics ??? Alcohol use: No Allergies Allergen Reactions ??? Codeine Sulfate Hyper ??? Codeine Other (See Comments) Becomes hyper Medications: Home Medications: Medications Prior to Admission Medication Sig Dispense Refill Last Dose ??? aspirin 81 MG chewable tablet Chew 1 tablet (81 mg total) by mouth daily with breakfast. 30 tablet 5 Past Week at Unknown time ??? blood sugar diagnostic Strp Use to test blood sugar up to 4 times a day. Diagnosis for use: E 9.65. For use with One Touch Verio meters. 150 strip 5 Taking ??? blood-glucose meter (ONETOUCH VERIO SYSTEM) [facility] [place] Use as instructed. 1 each 0 Taking ??? carBAMazepine (TEGRETOL) 200 mg tablet Take 200 mg by mouth at bedtime. Past Month at Unknown time ??? cycloSPORINE modified (NEORAL) 25 MG capsule Take 4 capsules (100 mg total) by mouth 2 times a day. 240 capsule 5 ??? doxazosin (CARDURA) 8 MG tablet 8 mg at bedtime. Past Month at Unknown time ??? entecavir (BARACLUDE) 0.5 MG tablet Take 1 tablet (0.5 mg total) by mouth every 7 days. 4 tablet 5 ??? ergocalciferol (VITAMIN D2) 50,000 unit capsule Take 50,000 Units by mouth every Monday, , and Monday. Twice a week Unknown at Unknown time ??? famotidine (PEPCID) 20 MG tablet Take 20 mg by mouth daily. Past Month at Unknown time ??? fluticasone propionate (FLONASE) 50 mcg/actuation nasal spray Use into each nostril. More than a month at Unknown time ??? gabapentin (NEURONTIN) 100 MG capsule Take [...] the PM. 15 mL 5 ??? lancets (ONETOUCH DELICA LANCETS) 33 gauge [facility] [place] Use 1 strip as directed 4 times daily before meals and at bedtime. 150 each 5 Taking ??? lidocaine-prilocaine (EMLA) cream Apply topically. ??? melatonin 3 mg Tab Take 2 [...] mg by mouth 2 times a day. Past Month at Unknown time ??? ondansetron (ZOFRAN-ODT) 4 MG disintegrating tablet every 8 hours as needed. Past Week at Unknown time ??? pantoprazole (PROTONIX) 40 MG tablet Take 1 tablet (40 mg total) by mouth daily. 30 tablet 0 ??? pen needle, diabetic 32 gauge x /32 Ndle Use as directed to inject insulin 4 times daily. 150each 5 Taking ??? polyethylene glycol (MIRALAX) 17 gram packet Take 17 g by mouth daily as needed (mild constipation (no BM for 24 hrs)). 14 packet 0 ??? QUEtiapine (SEROQUEL) 25 MG tablet Take 0.5 tablets (12.5 mg total) by mouth at bedtime. 15 tablet 0 ??? vancomycin (VANCOCIN) IVPB 1000 mg with dialysis. Inpatient Meds: ??? aspirin 81 mg Oral Daily with breakfast ??? carBAMazepine 200 mg Oral Nightly (2099) ??? cycloSPORINE modified 100 mg Oral BID ??? enoxaparin 30 mg Subcutaneous Daily 0900 ??? entecavir 0.5 mg Oral Q7 Days ??? famotidine 20 mg Oral Daily 0900 ??? gabapentin 100 mg Oral BID ??? hydrALAZINE 100 mg Oral Q8H ??? insulin lispro 0-5 Units Subcutaneous TID AC ??? melatonin 6 mg Oral Nightly (2099) ? ? methocarbamoL 500 mg Oral 4x Daily AC & HS ??? metoprolol tartrate 25 mg Oral BID ??? NIFEdipine 90 mg Oral BID ??? QUEtiapine 12.5 mg Oral Nightly (2099) ??? sodium chloride 10 mL Intravenous QS Continuous Infusions: PRN medications: acetaminophen, dextrose 50 % in water (D50W) OR dextrose 50 % in water (D50W),glucose, oxyCODONE, polyethylene glycol, vancomycin intermittent/pulse dosing PLACEHOLDER ORDER Physical Exam Patient Vitals for the past 4 hrs: BP Temp Temp src Pulse Resp SpO2 07/15/20 0558 174/74 98.4 ??F (36.9 ??C) Oral 89 18 93 % Wt Readings from Last 3 Encounters: 07/14/20 (!) 268 lb (121.6 kg) 06/22/20 (!) 306 lb (138.8 kg) 06/07/20 (!) 251 lb 15.8 oz (114.3 kg) Intake/Output Summary (Last 24 hours) at 07/15/2020 0619 Last data filed at 07/15/2020 0129 Gross per 24 hour Intake -- Output 375 ml Net -375 ml General appearance: NAD, somnolent, arousal but uncooperative Head: NCAT Mouth: mmm Neck: Increased neck circumference Lungs: No RD, Heart: RR Abdomen: soft, NT, obese Extremities: 2+ pitting edema LE b/l Psych: uncooperative Laboratory Data and Imaging Lab Results Component Value Date NA 141 07/14/2020 K 6.2 (H) 07/14/2020 CL 105 07/14/2020 CO2 21 07/14/2020 BUN 72 (H) 07/14/2020 CREATININE 11.30 (H) 07/14/2020 GLUCOSE 103 (H) 07/14/2020 CALCIUM 8.8 07/14/2020 MG 2.3 07/14/2020 PHOS 9.3 (H) 07/14/2020 ANIONGAP 15 07/14/2020 ALBUMIN 3.6 07/14/2020 Lab Results Component Value Date PTH 574.0 (H) 06/10/2020 CALCIUM 8.8 07/14/2020 PHOS 9.3 (H) 07/14/2020 [id number] 15.8 (L) 01/14/2019 Lab Results Component Value Date WBC 5.2 07/14/2020 HGB 7.5 (L) 07/14/2020 HCT 23.4 (L) 07/14/2020 MCV 90.5 07/14/2020 PLT 146 07/14/2020 Lab Results Component Value Date IRON 22 06/26/2020 TIBC 167 06/26/2020 FERRITIN 508 06/26/2020 Lab Results Component Value Date [id number] 499 07/22/2019 Lab Results Component Value Date COLORU Yellow 07/20/2019 CLARITYU Cloudy (A) 07/20/2019 PROTEINUA >=500 (A) 07/20/2019 PHUR 6.0 07/20/2019 LABSPEC 1.017 07/20/2019 GLUCOSEU 150 (A) 07/20/2019 BLOODU Small (A) 07/20/2019 LEUKOCYTESUR Negative 07/20/2019 NITRITE Negative 07/20/2019 BILIRUBINUR Negative 07/20/2019 UROBILINOGEN <2.0 07/20/2019 RBCUA 6 (H) 07/20/2019 WBCUA 1 07/20/2019 BACTERIA Few (A) 07/20/2019 Lab Results Component Value Date NAUR 21 07/20/2019 KUR 56.0 07/20/2019 CLUR 22 07/20/2019 No results found for: MICROALBUR, [id number] Lab Results Component Value Date COLORU Yellow 07/20/2019 CLARITYU Cloudy (A) 07/20/2019 PROTEINUA >=500 (A) 07/20/2019 PHUR 6.0 07/20/2019 LABSPEC 1.017 07/20/2019 GLUCOSEU 150 (A) 07/20/2019 BLOODU Small (A) 07/20/2019 LEUKOCYTESUR Negative 07/20/2019 NITRITE Negative 07/20/2019 BILIRUBINUR Negative 07/20/2019 UROBILINOGEN <2.0 07/20/2019 RBCUA 6 (H) 07/20/2019 WBCUA 1 07/20/2019 BACTERIA Few (A) 07/20/2019 Extensive lab data and imaging reviewed in EMR. Cosigned by Destin Rawls MD at 07/15/2020 9:44 PM EST Associated attestation - Destin Rawls MD - 07/15/2020 9:44 PM EST I have seen and examined the patient, reviewed the notes, assessments, and/or procedures performed by the fellow/resident/BUTTON RECLAIMER and I concur with her/his documentation of the patient. My physical exam confirms the findings listed above. Review of labs, pathology reports, radiograph reports, and medical records confirm the findings noted above. I have edited the note where appropriate. I have discussed my findings and recommendations with the patient/family when appropriate and answered their questions. ESRD on home hemo with hyperkalemia HD today Low K diet Destin Rawls MD Transplant Nephrology Attending documented in this encounter Nursing Notes * Roxi Julio RN - 07/20/2020 5:20 PM EST Patient being discharged to home with home health care. IV removed and went over after visit summary with patient and his spouse, they have no questions at this time, Patient is aware of his appointment tomorrow at [facility]. documented in this encounter Miscellaneous Notes * Plan of Care - Zeny Hernandez RN - 07/20/2020 5:16 PM EST Hemodialysis Treatment Plan of Care Goal: Patient [...] Hemodialysis Procedure well Hemodialysis Weights Dry Weight: 124 kg (273 lb 5.9 oz) Fluid removal goal: 2700 Last Treatment Post Weight: 125.6 kg (276 lb 14.4 oz) Pre Weight: 126.3 kg (278 lb 7.1 oz) Pre Weight Source: Bed Scale Weight Post Weight: 123.6 kg (272 lb 7.8 oz) Post Weight Source: Bed Scale Weight HD Post Treatment Vitals: BP: (!) 200/98 Heart Rate: 82 Temp: 97.5 ??F (36.4 ??C) Resp: 16 Fluid Net Fluid Removal Calculation (Any blood products given during HD treatment are accounted forin net fluid removal. Do not count in patient's I and O): Rinseback Volume (mL): 400 mL Hemodialysis Output (mL): 3100 mL *Net fluid removal (ml): 2700 mL* Delivered Dialysis Prescription: Potassium (mEq/L): 3 Calcium (mEq/L): 2.5 Sodium (mEq/L): 138 Bicarbonate (mEq/L): 35 Blood Flow: 350 Dialysate Flow: 800 Prescribed Treatment Time (minutes): 180 Duration of Treatment (minutes): 180 minutes HD Access:Lfet AVF HD Access Function: Good Post-Treatment procedures: Blood returned Needle Size: 15g Lidocaine Used: Yes Access Needle Placement / Position: Up and up Other / Comments: His Bp increases at very end of treatment but is asymptomatic. Hydralazine given Was a Crit Line Used for this Treatment? [facility] of provider contacted to adjusted target fluid removal? Provider Name or n/a: NA Was an order modification for fluid removal given? No Did patient meet fluid removal goal of 0.7 L above or below ordered UF? Yes RN Report Received From: November RN Report Given To: November Hepatitis Status: Hep B Surface Ab: positive Hep B Core Total Ab: negative Hepatitis B Surface Ag: positive Machine Number: [id number] Hemodialysis Meds: Aranesp (Darbepoetin) None IV Iron (Venofer) None Reason for admission VERTEBRAL OSTEOMYELITIS * Home Health Care Note - Addison Mendoza MD - 07/20/2020 2:12 PM EST Images from the original note were not included. REFERRAL FOR HOME HEALTH SERVICES FORM Patient name: Leoncio Oviedo Eh ParraUbaldo Patient : 1975 Age: 45 y.o. Gender: male SSN: [id number] Address: [address] [place] [address] Phone number: [phone] (home) Patient emergency contact: Extended Emergency Contact Information Primary Emergency Contact: Sharyn Rollinsy Address: [facility] [place] [address] Mobile Relation: Spouse Secondary Emergency Contact: RollinsKimberly [facility] Relation: Mother Date of admission: 07/14/2020 Date of discharge: 07/20/2020 Attending provider: Addison Vaca* Primary care physician: Edgar Fournier MD Code status: Full Code Allergies: Allergies Allergen Reactions ??? Codeine Sulfate Hyper ??? Codeine Other (See Comments) Becomes hyper Insurance Information Insurance Information MEDICARE/MEDICARE A AND B Phone: Subscriber: Leoncio Rollins Jr. Subscriber#: [id number] Group#: Precert#: [place] Phone: Subscriber: Leoncio Rollins Jr. Subscriber#: [id number] Group#: Precert#: Diagnoses Present on Admission Primary Diagnosis: Osteomyelitis (CMS Dx) Discharge Diagnosis : Active Hospital Problems Diagnosis Date Noted ??? Osteomyelitis (CMS Dx) [M86.9] 05/28/2020 ??? Vertebral osteomyelitis (CMS Dx) [M46.20] 07/16/2020 Resolved Hospital Problems No resolved problems to display. Prognosis: fair Rehabilitation potential: fair Diet Diet Orders Diet renal starting at 07/14 2031 As listed above Services Required Physical Therapy: Plan Treatment/Interventions: LE strengthening/ROM, Endurance training, Patient/family training, Equipment eval/education, Gait training, Neuromuscular Reeducation, Therapeutic Exercise, Therapeutic Activity PT Frequency: minimum 3x/week Recommendation Recommendation: IP Rehab(If pt declines, recommend 24 hour S/A and home PT) Equipment Recommended: Rolling walker, Wheelchair- manual, Patient already has needed DME Occupational Therapy: Plan Treatment Interventions: ADL retraining, Therapeutic Activity, Compensatory technique education, Excercise, Activity Tolerance training, Functional transfer training, Continued evaluation, Patient/Family training OT Frequency: minimum 3x/week Recommendation Recommendation: IP Rehab Equipment Recommendations: (bed railing- pt reports he will look into obtaining) Antibiotics at discharge: Dalbavancin 1500mg IV weekly x2 Patient need US guided IV access for the infusion. Levaquin 250mg PO daily, end date 09/08/20 ?? Weekly monitoring labs to be drawn on Mondays and faxed to [facility] attn Dr Johnson [phone] CBC, BMP, ESR, CRP Weight bearing status: full Needs 24 hour supervision due to cognitive impairment: No Discharge Medications Medications: Current Discharge Medication List START taking these medications Details cloNIDine HCL (CATAPRES) 0.1 MG tablet Take 1 tablet (0.1 mg total) by mouth 2 times a day. Qty: 60 tablet, Refills: 0 levoFLOXacin (LEVAQUIN) 500 MG tablet Take 0.5 tablets (250 mg total) by mouth at bedtime. Qty: 25 tablet, Refills: 0 lidocaine (LIDODERM) 5 % Place 1 patch onto the skin daily. Apply patch for 12 hours and then remove patch and leave off for 12 hours. Qty: 30 patch, Refills: 0 CONTINUE these medications which have NOT CHANGED Details aspirin 81 MG chewable tablet Chew 1 tablet (81 mg total) by mouth daily with breakfast. Qty: 30 tablet, Refills: 5 blood sugar diagnostic Strp Use to test blood sugar up to 4 times a day. Diagnosis for use: E 9.65.For use with One Touch Verio meters. Qty: 150 strip, Refills: 5 blood-glucose meter (ONETOUCH VERIO SYSTEM) [facility] [place] Use as instructed. Qty: 1 each, Refills: 0 carBAMazepine (TEGRETOL) 200 mg tablet Take 200 mg by mouth at bedtime. cycloSPORINE modified (NEORAL) 25 MG capsule Take 4 capsules (100 mg total) by mouth 2 times a day. Qty: 240 capsule, Refills: 5 doxazosin (CARDURA) 8 MG tablet 8 mg at bedtime. entecavir (BARACLUDE) 0.5 MG tablet Take 1 tablet (0.5 mg total) by mouth every 7 days. Qty: 4 tablet, Refills: 5 ergocalciferol (VITAMIN D2) 50,000 unit capsule Take 50,000 Units by mouth every Monday, ,and Monday. Twice a week fluticasone propionate (FLONASE) 50 mcg/actuation nasal spray Use into each nostril. gabapentin (NEURONTIN) 100 MG capsule Take 1 capsule (100 mg total) by mouth 2 times a day. Qty: 90 capsule, Refills: 0 Associated Diagnoses: Other osteonecrosis, left femur (CMS Dx) hydrALAZINE (APRESOLINE) 100 MG tablet Take 1 tablet (100 mg total) by mouth every 8 hours. Qty: 120 tablet, Refills: 0 insulin NPH isoph U-100 human (HUMULIN N NPH INSULIN KWIKPEN) 100 unit/mL (3 mL) InPn Inject subcutaneously 12 units in the AM and 6 units in the PM. Qty: 15 mL, Refills: 5 Associated Diagnoses: S/P liver transplant (CMS Dx); Hyperglycemia lancets (ONETOUCH DELICA LANCETS) 33 gauge [facility] [place] Use 1 strip as directed 4 times daily before meals and at bedtime. Qty: 150 each, Refills: 5 melatonin 3 mg Tab Take 2 tablets (6 mg total) by mouth at bedtime. Qty: 30 tablet, Refills: 0 methocarbamoL (ROBAXIN) 500 MG tablet Take 1 tablet (500 mg total) by mouth 4 times daily before meals and at bedtime. Qty: 120 tablet, Refills: 0 metoprolol tartrate (LOPRESSOR) 25 MG tablet Take 1 tablet (25 mg total) by mouth 2 times a day. Qty: 60 tablet, Refills: 0 NIFEdipine (PROCARDIA-XL) 90 MG (OSM) 24 hr tablet Take 90 mg by mouth 2 times a day. ondansetron (ZOFRAN-ODT) 4 MG disintegrating tablet every 8 hours as needed. pantoprazole (PROTONIX) 40 MG tablet Take 1 tablet (40 mg total) by mouth daily. Qty: 30 tablet, Refills: 0 pen needle, diabetic 32 gauge x /32 Ndle Use as directed to inject insulin 4 times daily. Qty: 150 each, Refills: 5 polyethylene glycol (MIRALAX) 17 gram packet Take 17 g by mouth daily as needed (mild constipation (no BM for 24 hrs)). Qty: 14 packet, Refills: 0 QUEtiapine (SEROQUEL) 25 MG tablet Take 0.5 tablets (12.5 mg total) by mouth at bedtime. Qty: 15 tablet, Refills: 0 STOP taking these medications famotidine (PEPCID) 20 MG tablet Comments: Reason for Stopping: lidocaine-prilocaine (EMLA) cream Comments: Reason for Stopping: vancomycin (VANCOCIN) IVPB Comments: Reason for Stopping: Discharge Specific Orders Discharge specific orders: None required Isolation Patient Isolation Status Isolation Added Added By Removed Removed By None active Removed Contact / Droplet / Airborne for Procedures 07/14/20 Sonu Rose, DO 07/15/20 Bridgett Gibbons RN Vitals Patient Vitals for the past 4 hrs: BP Temp Temp src Pulse 07/20/20 1430 (!) 186/93 -- -- 77 07/20/20 1400 168/80 -- -- 77 07/20/20 1330 158/76 -- -- 69 07/20/20 1300 161/81 -- -- 69 07/20/20 1245 153/84 97.5 ??F (36.4 ??C) Skin 76 Equipment/Supplies none No current labs Ordering Physician: VALERIAI [ADDISNO MENDOZA MD] Physician Certification Further, I certify that my clinical findings support that this patient is homebound (i.e. absences from home require considerable and taxing effort and are for medical reasons or restorationism services or infrequently or short duration when for other reasons) due to deconditioning it would be a taxing effort to receive outpatient services. My signature below is to certify that this patient is under my care and that I, or nurse practitioner, or a physician bankruptcy assistant working with me, had a [id number] encounter with this is patient on: 07/20/2020 Follow-up Appointments and Post Hospital Discharge Physician Name Future Appointments Date Time Provider Department Center 07/21/2020 9:00 AM CHAIR 08 INF GNI INF GNI UCGNI 08/09/2020 8:55 AM COVID TESTING - [facility] UCP COV BUR BUR 08/10/2020 9:40 AM Dav Johnson MD IDC MAB MAB 08/11/2020 10:30 AM LIVER FELLOW ENDO None 09/09/2020 12:00 PM Ravi Biswas MD [facility] PULM HOL HOL 09/14/2020 8:35 AM Jack Ordoñez MD LTRA HOX None No follow-up provider specified. Discharging Physician Signature and Credentials Discharging Physician: Electronically signed by ADDISON MENDOZA 07/20/2020, 2:45 PM Physician to follow up Information PCP: Edgar Fournier MD PCP address: [address] [place] [address] PCP phone number: [phone] PCP fax number: None If PCP is not following patient, type physician contact information here: Patient will be followed by PCP Stunt Person and Credentials Provider/Company Name and Contact Number: [facility] at Discharge [facility] Home post discharge: [facility] Name/Phone # post discharge: Ilene [phone] fax= [phone] Home Health Services Types at Discharge: PT/OT Stunt Person Name and Telephone Number: * Care Coordination - Jessica Bautista - 07/20/2020 12:01 PM EST CCA obtained IMM signature at 11:39am .Copy was placed in patients chart and patient received copy. Jessica Bautista [employer] Care Management Service [phone] * Care Coordination - Khushi Crespo RN - 07/19/2020 6:46 PM EST [facility] Case Management/Social Work Department Progress Note Patient Information Hospital day: 5 Inpatient/Observation: Inpatient Level of Care: Acute Care Admit date: 07/14/2020 Admission diagnosis: VERTEBRAL OSTEOMYELITIS PMH: has a past medical history of Acute pancreatitis, Anemia, Ascites, Diabetes mellitus (CMS Dx),Dialysis patient (CMS Dx), Esophageal varices with bleeding (CMS Dx), GERD (gastroesophageal refluxdisease), Hearing loss, Hepatic encephalopathy (CMS Dx), Hypertension, Liver cirrhosis secondary toNASH (CMS Dx), Pulmonary HTN (CMS Dx), Sleep apnea, and Vitamin D deficiency. PCP: Edgar Fournier MD Home Pharmacy: [facility] [address] [facility] [address] [facility] - [facility] [address] [facility] [address] [facility] [id number] [facility] [address] [facility] [address] [facility] [address] Medical Insurance Coverage: Payor: MEDICARE / Plan: MEDICARE A AND B / Product Type: Medicare / Other Pertinent Information called [facility] ( ) in [place] where patient lives. The hospital does have an infusion center where patient could get his twice weekly infusion. May need to speak with the infusion center to see if they provide ultrasound guided peripheral IVs as this patient will not be discharged with any central line and may be a difficult stick due to poor IV access. [facility] ID may need to work with patient's PCP so that his infusion can be set up at this hospital, a question to ask at the infusion center as well. The infusion center appointments may be set up through Central Scheduling, but will need to ask the infusion center how appointments are scheduled. This patient can be be potentially medically cleared once this patient is set up to receive his infusions at aninfusion center. He will need weekly labs as well (per ID doctor's note on 07/18/20). Unsure if theywill first dose Dalbavancin 1500mg IV at the infusion center, and will need to find out before patient is sent home so he can be first dosed here if needed. The ID doctor does not want patient discharged unless these infusion are set up in an infusion center to ensure he gets the 12-16 doses (6-8 weeks @ 1 dose 2x/week). Discharge Plan Anticipated discharge plan: Home with Home Health Anticipated discharge date: 07-21-20 CM/SW will continue to follow and remain available for discharge planning needs. KHUSHI CRESPO RN Cell [phone] * Care Coordination - Khushi Crespo RN - 07/18/2020 9:16 PM EST [facility] Case Management/Social Work Department Progress Note Patient Information Hospital day: 4 Inpatient/Observation: Inpatient Level of Care: Acute care Admit date: 07/14/2020 Admission diagnosis: VERTEBRAL OSTEOMYELITIS PMH: has a past medical history of Acute pancreatitis, Anemia, Ascites, Diabetes mellitus (CMS Dx),Dialysis patient (CMS Dx), Esophageal varices with bleeding (CMS Dx), GERD (gastroesophageal refluxdisease), Hearing loss, Hepatic encephalopathy (CMS Dx), Hypertension, Liver cirrhosis secondary toNASH (CMS Dx), Pulmonary HTN (CMS Dx), Sleep apnea, and Vitamin D deficiency. PCP: Edgar Fournier MD Home Pharmacy: [facility] [address] [facility] [address] [facility] - [facility] [address] [facility] [address] [facility] [phone] [facility] [address] [facility] [address] Medical Insurance Coverage: Payor: MEDICARE / Plan: MEDICARE A AND B / Product Type: Medicare / Other Pertinent Information Patient needs twice weekly IV ABX with weekly labs set up at an infusion center where he will be able to have access to ultrasound guided IV placement as patient will be discharges without central line access. Dalbavancin 1500mg IV weekly x2 Levaquin 250mg PO daily, end date 09/08/20 ?? Patient lives in [facility] and informs CM that nearby hospitals are in order of preference: [facility], [facility], and [facility]. CM willcall these hospitals tomorrow to see if there are infusion centers available in their facilities. Dalbavancin 1500mg IV weekly x2 Levaquin 250mg PO daily, end date 09/08/20 ?? Weekly monitoring labs to be drawn on Mondays and faxed to [facility] attn Dr Johnson [phone] CBC, BMP, ESR, CRP Patient can not be discharged per Attending and ID without the infusion center being set up first. Discharge Plan Anticipated discharge plan: Home with home health for PT/OT and outpatient infusion infusion center. Anticipated discharge date: 07-21-20 CM/SW will continue to follow and remain available for discharge planning needs. KHUSHI CRESPO RN Cell [phone] * Care Coordination - Karli Schaefer RN MSN - 07/17/2020 12:31 PM EST [facility] Case Management/Social Work Department Progress Note Patient Information Hospital day: 3 Inpatient/Observation: Inpatient Level of Care: H1 Admit date: 07/14/2020 Admission diagnosis: VERTEBRAL OSTEOMYELITIS PMH: has a past medical history of Acute pancreatitis, Anemia, Ascites, Diabetes mellitus (CMS Dx),Dialysis patient (CMS Dx), Esophageal varices with bleeding (CMS Dx), GERD (gastroesophageal refluxdisease), Hearing loss, Hepatic encephalopathy (CMS Dx), Hypertension, Liver cirrhosis secondary toNASH (CMS Dx), Pulmonary HTN (CMS Dx), Sleep apnea, and Vitamin D deficiency. PCP: Edgar Fournier MD Home Pharmacy: [facility] [address] [facility] [address] [facility] - [place], [place] - [address] [facility] [phone] [facility] [address] [facility] [address] Medical Insurance Coverage: Payor: MEDICARE / Plan: MEDICARE A AND B / Product Type: Medicare / Other Pertinent Information RN CC participated in interdisciplinary rounds with H1. Patient is not medically ready. Patient is pending approval of meds per insurance. He has been accepted per Ilene for home care , ph = [phone] fax= [phone] contact Rose Discharge Plan Anticipated discharge plan: Home with Homecare Anticipated discharge date: 07/20/20 CM/SW will continue to follow and remain available for discharge planning needs. Altagracia Schaefer MSN,BSN,RN [employer] [place] [employer] [phone] * Plan of Care - Zeny Hernandez RN - 07/17/2020 11:34 AM EST Hemodialysis Treatment Plan of Care Goal: Patient [...] Hemodialysis Procedure well Hemodialysis Weights Dry Weight: 124 kg (273 lb 5.9 oz)(per pt) Fluid removal goal: 1999 Last Treatment Post Weight: 127.6 kg (281 lb 4.9 oz) Pre Weight: 127.6 kg (281 lb 4.9 oz) Pre Weight Source: Bed Scale Weight Post Weight: 125.6 kg (276 lb 14.4 oz) Post Weight Source: Bed Scale Weight HD Post Treatment Vitals: BP: 167/80 Heart Rate: 93 Temp: 97.8 ??F (36.6 ??C) Resp: 16 Fluid Net Fluid Removal Calculation (Any blood products given during HD treatment are accounted forin net fluid removal. Do not count in patient's I and O): Rinseback Volume (mL): 400 mL Hemodialysis Output (mL): 2400 mL *Net fluid removal (ml): 2000 mL* Delivered Dialysis Prescription: Potassium (mEq/L): 2 Calcium (mEq/L): 2.5 Sodium (mEq/L): 138 Bicarbonate (mEq/L): 35 Blood Flow: 350 Dialysate Flow: 800 Prescribed Treatment Time (minutes): 180 Duration of Treatment (minutes): 180 minutes HD Access:Left AVF HD Access Function: Good Post-Treatment procedures: Blood returned Needle Size: 15g Lidocaine Used: Yes Access Needle Placement / Position: Up and up Other / Comments: No problems Was a Crit Line Used for this Treatment? [employer] of provider contacted to adjusted target fluid removal? Provider Name or n/a: NA Was an order modification for fluid removal given? No Did patient meet fluid removal goal of 0.7 L above or below ordered UF? Yes RN Report Received From: Maryanne BATES Report Given To: Abbie Hepatitis Status: Hep B Surface Ab: positive Hep B Core Total Ab: negative Hepatitis B Surface Ag: positive Machine Number: [id number] Hemodialysis Meds: Aranesp (Darbepoetin) None IV Iron (Venofer) None Reason for admission VERTEBRAL OSTEOMYELITIS * Care Coordination - Jessica Bautista - 07/16/2020 11:39 AM EST CCA obtained IMM signature at 9:49 am.Copy was placed in patients chart and patient received copy. Jessica Bautista [employer] Care Management Service [phone] * Plan of Care - Zeny Hernandez RN - 07/15/2020 4:23 PM EST Hemodialysis Treatment Plan of Care Goal: Patient [...] Procedure well Hemodialysis Weights Dry Weight: (UF 1-2L) Fluid removal goal: 1999 Pre Weight: 129.5 kg (285 lb 7.9 oz) Pre Weight Source: Bed Scale Weight Post Weight: 127.6 kg (281 lb 4.9 oz) Post Weight Source: Bed Scale Weight HD Post Treatment Vitals: BP: 191/86 Heart Rate: 102 Temp: 99.3 ??F (37.4 ??C) Resp: 19 Fluid Net Fluid Removal Calculation (Any blood products given during HD treatment are accounted forin net fluid removal. Do not count in patient's I and O): Rinseback Volume (mL): 400 mL Hemodialysis Output (mL): 2300 mL *Net fluid removal (ml): 1900 mL* Delivered Dialysis Prescription: Blood Flow: 350 Dialysate Flow: 800 Prescribed Treatment Time (minutes): 180 Duration of Treatment (minutes): 180 minutes HD Access:Left AVF HD Access Function: Good Post-Treatment procedures: Blood returned Lidocaine Used: Yes Access Needle Placement / Position: Up and up Other / Comments: No Problems Was a Crit Line Used for this Treatment? [employer] of provider contacted to adjusted target fluid removal? Provider Name or n/a: NA Was an order modification for fluid removal given? No Did patient meet fluid removal goal of 0.7 L above or below ordered UF? Yes RN Report Received From: Bridgett RN Report Given To: Bridgett Hepatitis Status: Hep B Surface Ab: unknown Hep B Core Total Ab: unknown Hepatitis B Surface Ag: unknown Hemodialysis Meds: Aranesp (Darbepoetin) No therapy plan of the specified type found. IV Iron (Venofer) No therapy plan of the specified type found. Reason for admission VERTEBRAL OSTEOMYELITIS * Care Coordination - RADHA Mauricio, JOVITA-S - 07/15/2020 3:44 PM EST [facility] Case Management/Social Work Department Discharge Planning Screen Screening Questions Do you need help filling out medical forms: No Is patient from anywhere other than a private residence? (senior care, SNF, LTC, IPR, LTAC, etc.): No Do you have any services that come into the house to help you? (COA, private duty, HHC, etc): Yes Do you have barriers getting to follow up appointment or obtaining prescriptions?: No Have you been to the (ED/hospital) 4x times in the past 6 months? : No Patient meet criteria for full assessment; SW/CM will follow up Patient is not medically ready for discharge today. Patient is on IV vanc and will likely need IV antibiotics to 6-8 weeks. Patient does HD at home at baseline. Patient has been recommended for inpatient rehab at discharge. Psychosocial assessment to follow, patient is currently off the unit at [facility]. CC will continue to follow. JOVITA Giles [phone] documented in this encounter Plan of Treatment Upcoming Encounters Date Type Department Care Team (Late st Contact Info) Description 07/15/2024 9:00 AM EST Hospital Encounter [facility] Interventional Radiology [address] [place] [phone] Herve Carrillo MD [address] [facility] [address] [facility] [place] [address] documented as of this encounter Procedures Procedure Name Priority Date/Time Associated Diagnosis Comments EKG REPORT - SCAN 07/24/2020 6:3 9 PM EST POC GLU MONITORING DEVICE Routine 07/20/2020 11:57 AM EST POC GLU MONITORING DEVICE Routine 07/20/2020 8:09 AM EST CBC Routine 07/20/2020 7:29 AM EST VANCOMYCIN, RANDOM Routine 07/20/2020 7: 29 AM EST POC GLU MONITORING DEVICE Routine 07/19/2020 9:05 PM EST POC GLU MONITORING DEVICE Routine 07/19/2020 6:22 PM EST POC GLU MONITORING DEVICE Routine 07/19/2020 1:54 PM EST POC GLU MONITORING DEVICE Routine 07/19/2020 9:11 AM EST HEPATIC FUNCTION PANEL Routine 0 5:15 AM EST PROTIME-INR Routine 07/19/2020 5:15 AM EST CBC Routine 07/19/2020 5:15 AM EST BASIC METABOLIC PANEL Routine 07/19/2020 5:15 AM EST POC GLU MONITORING DEVICE Routine 07/18/2020 6:18 PM EST POC GLU MONITORING DEVICE Routine 07/18/2020 12:26 PM EST POC GLU MONITORING DEVICE Routine 07/18/2020 8:39 AM EST PREPARE RBC, LEUKOREDUCED Routine 07/18/2020 6:15 AM EST POC GLU MONITORING DEVICE Routine 07/17/2020 6:07 PM EST POC GLU MONITORING DEVICE Routine 07/17/2020 12:02 PM EST POC GLU MONITORING DEVICE Routine 07/17/2020 9:13 AM EST HEPATIC FUNCTION PANEL Routine 0 6:07 AM EST CBC Routine 07/17/2020 6:07 AM EST VANCOMYCIN, RANDOM Routine 07/17/2020 6: 07 AM EST BASIC METABOLIC PANEL Routine 07/17/2020 6:07 AM EST TRANSFUSE RED BLOOD CELLS Routine 07/17/2020 2:27 AM EST TRANSFUSE RED BLOOD CELLS Routine 07/16/2020 10:20 PM EST ANTIBODY IDENTIFICATION Routine 12/03/20 20 8:24 PM EST ELUTION & ANTIBODY IDENTIFICATION, RBC Routine 07/16/2020 8:23 PM EST POC GLU MONITORING DEVICE Routine 07/16/2020 6:39 PM EST ELIUD ANTI-IGG Routine 07/16/2020 4:35 PM EST POC GLU MONITORING DEVICE Routine 07/16/2020 3:16 PM EST ABO/RH Routine 07/16/2020 12:31 PM EST CBC STAT 07/16/2020 12:31 PM EST ANTIBODY SCREEN Routine 07/16/2020 12:31 PM EST POC GLU MONITORING DEVICE Routine 07/16/2020 9:38 AM EST HEPATIC FUNCTION PANEL Routine 0 6:00 AM EST PROTIME-INR Routine 07/16/2020 6:00 AM EST VANCOMYCIN, RANDOM Routine 07/16/2020 6: 00 AM EST BASIC METABOLIC PANEL Routine 07/16/2020 6:00 AM EST POC GLU MONITORING DEVICE Routine 07/15/2020 11:15 PM EST POC GLU MONITORING DEVICE Routine 07/15/2020 4:20 PM EST POC GLU MONITORING DEVICE Routine 07/15/2020 2:29 PM EST HEPATITIS B CORE ANTIBODY STAT 07/15/2020 1:19 PM EST HEPATITIS A IGM STAT 07/15/2020 1:19 PM EST HEPATITIS C ANTIBODY STAT 07/15/2020 1:19 PM EST HEPATITIS B SURFACE ANTIBODY, QUANTITATIVE STAT 07/15/2020 1:19 PM EST HEPATITIS B SURFACE ANTIGEN STAT 07/15/2020 1:19 PM EST VANCOMYCIN, RANDOM STAT 07/15/2020 10 :39 AM EST POC GLU MONITORING DEVICE Routine 07/15/2020 9:26 AM EST POC GLU MONITORING DEVICE Routine 07/15/2020 7:29 AM EST POC GLU MONITORING DEVICE Routine 07/15/2020 5:58 AM EST RENAL FUNCTION PANEL W/EGFR Routine 07/15/2020 5:42 AM EST DIFFERENTIAL Routine 07/15/2020 5:42 AM EST CBC Routine 07/15/2020 5:42 AM EST MAGNESIUM Routine 07/15/2020 5:42 AM EST POC GLU MONITORING DEVICE Routine 07/15/2020 4:52 AM EST POC GLU MONITORING DEVICE Routine 07/15/2020 3:41 AM EST POC GLU MONITORING DEVICE Routine 07/15/2020 2:44 AM EST POC GLU MONITORING DEVICE Routine 07/15/2020 1:28 AM EST POC GLU MONITORING DEVICE Routine 07/15/2020 1:27 AM EST SED RATE Routine 07/15/2020 12:28 AM EST BLOOD CULTURE-PERIPHERAL Routine 07/15/2020 12:04 AM EST HEPATIC FUNCTION PANEL STAT 0 11:34 PM EST CYCLOSPORINE LEVEL Routine 07/14/2020 11 :34 PM EST BLOOD CULTURE-PERIPHERAL Routine 07/14/2020 11:34 PM EST PROTIME-INR STAT 07/14/2020 11:34 PM EST CBC STAT 07/14/2020 11:34 PM EST C-REACTIVE PROTEIN Routine 07/14/2020 11 :34 PM EST PHOSPHORUS STAT 07/14/2020 11:34 PM EST MAGNESIUM STAT 07/14/2020 11:34 PM EST BASIC METABOLIC PANEL STAT 07/14/2020 11:34 PM EST XR COMPARISON IMAGES Routine 07/14/2020 10:46 PM EST 2019 NOVEL CORONAVIRUS (COVID-19), FRANKLYN-B Routine 07/14/2020 10:35 PM EST ECG 12-LEAD (MUSE) STAT 07/14/2020 10 :15 PM EST POC GLU MONITORING DEVICE Routine 07/14/2020 9:51 PM EST documented in this encounter Results * EKG REPORT - SCAN (07/24/2020 6:39 PM EST) us Scanning Uchhim SCAN DOCS - NO RESULTS Final Res ult * (ABNORMAL) POC Glucose Monitoring Device (07/20/2020 11:57 AM EST) POC Glucose Monitoring Device 134(H) 70 - 100 mg/dL 07/20/2020 12:00 PM EST [facility] Blood specimen (specimen) 07/20/2020 11:57 AM EST 07/20/2020 12:00 PM EST us Rene Ewing MD POINT OF CARE TEST ORDERABLE S Final Result [facility] [address] * (ABNORMAL) POC Glucose Monitoring Device (07/20/2020 8:09 AM EST) Pathologist [facility] POC Glucose Monitoring Device 125(H) 70 - 100 mg/dL 07/20/2020 8:10 AM EST [facility] Blood specimen (specimen) 07/20/2020 8:09 AM EST 07/20/2020 8:09 AM EST us Rene Ewing MD POINT OF CARE TEST ORDERABLE S Final Result [facility] [address] * (ABNORMAL) CBC, AM (07/20/2020 7:29 AM EST) Pathologist [facility] WBC 3.2(L) 3.8 - 10.8 10E3/uL 07/20/2020 8:00 AM [facility] RBC 2.78(L) 4.20 - 5.80 10E6/uL 07/20/2020 8:00 AM [facility] Hemoglobin 7.9(L) 13.2 - 17.1 g/dL 07/20/2020 8:00 AM [facility] Hematocrit 24.8(L) 38.5 - 50.0 % 07/20/2020 8:00 AM [facility] MCV 89.2 80.0 - 100.0 fL 07/20/2020 8:00 AM [facility] MCH 28.6 27.0 - 33.0 pg 07/20/2020 8:00 AM [facility] MCHC 32.0 32.0 - 36.0 g/dL 07/20/2020 8:00 AM [facility] RDW 17.0(H) 11.0 - 15.0 % 07/20/2020 8:00 AM [facility] Platelets 125(L) 140 - 400 10E3/uL 07/20/2020 8:00 AM [facility] MPV 7.2(L) 7.5 - 11.5 fL 07/20/2020 8:00 AM [facility] Whole blood specimen (specimen) 07/20/2020 7:29 AM EST 07/20/2020 7:48 AM EST us Addison Mendoza MD LAB BLOOD ORDE RABLES Final Result Performing Organization Address [facility]/ZIP Co de Phone Number [facility] [address] [place] [address]. [address] * Vancomycin, random (07/20/2020 7:29 AM EST) Vancomycin Random 18.0 ug/mL 07/20/2020 8:13 AM EST [facility] Comment:Reference range not established for this test. Plasma specimen (specimen) 07/20/2020 7:29 AM EST 07/20/2020 7:48 AM EST us Addison Mendoza MD LAB BLOOD ORDE RABBERHANE Final Result Performing Organization Address [facility] Co de Phone Number [facility] [address] [facility]. [address] * (ABNORMAL) POC Glucose Monitoring Device (07/19/2020 9:05 PM EST) POC Glucose Monitoring Device 152(H) 70 - 100 mg/dL 07/19/2020 9:05 PM EST [facility] Blood specimen (specimen) 07/19/2020 9:05 PM EST 07/19/2020 9:05 PM EST us Rene Ewing MD POINT OF CARE TEST ORDERABLE S Final Result Performing Organization Address [facility] Co de Phone Number [facility] [address] [place] [address]. [address] * (ABNORMAL) POC Glucose Monitoring Device (07/19/2020 6:22 PM EST) POC Glucose Monitoring Device 108(H) 70 - 100 mg/dL 07/19/2020 6:22 PM EST [facility] Blood specimen (specimen) 07/19/2020 6:22 PM EST 07/19/2020 6:22 PM EST Rene Ewing MD POINT OF CARE TEST ORDERABLE S Final Result Performing Organization Address [facility] de Phone Number [facility] [address] * (ABNORMAL) POC Glucose Monitoring Device (07/19/2020 1:54 PM EST) POC Glucose Monitoring Device 190(H) 70 - 100 mg/dL 07/19/2020 1:55 PM EST [facility] Blood specimen (specimen) 07/19/2020 1:54 PM EST 07/19/2020 1:55 PM EST us Rene Ewing MD POINT OF CARE TEST ORDERABLE S Final Result Performing Organization Address [facility] de Phone Number [facility] [address] [facility] * (ABNORMAL) POC Glucose Monitoring Device (07/19/2020 9:11 AM EST) POC Glucose Monitoring Device 111(H) 70 - 100 mg/dL 07/19/2020 9:12 AM EST [facility] Blood specimen (specimen) 07/19/2020 9:11 AM EST 07/19/2020 9:12 AM EST Rene Ewing MD POINT OF CARE TEST ORDERABLE S Final Result Performing Organization Address [facility] de Phone Number [facility] [address] [place] [facility]. [address] * (ABNORMAL) Basic Metabolic panel, AM (07/19/2020 5:15 AM EST) Sodium 139 133 - 146 mmol/L 07/19/2020 6:39 AM EST [facility] Potassium 4.4 3.5 - 5.3 mmol/L 07/19/2020 6:39 AM EST [facility] Chloride 102 98 - 110 mmol/L 07/19/2020 6:39 AM EST [facility] CO2 25 21 - 33 mmol/L 07/19/2020 6:39 AM [facility] Anion Gap 12 3 - 16 mmol/L 07/19/2020 6:39 AM [facility] BUN 28(H) 7 - 25 mg/dL 07/19/2020 6:39 AM [facility] Creatinine 7.21(H) 0.60 - 1.30 mg/dL 07/19/2020 6:39 AM [facility] Glucose 88 70 - 100 mg/dL 07/19/2020 6:39 AM [facility] Calcium 8.8 8.6 - 10.3 mg/dL 07/19/2020 6:39 AM [facility] Osmolality, Calculated 293 278 - 305 mOsm/kg 07/19/2020 6:39 AM [facility] eGFR AA CKD-EPI 10 See note. 0 6:39 AM [facility] Comment: As of 2015 the estimated GFR is calculated from serum creatinine using the Chronic Kidney Disease Epidemiology Collaboration (CKD-EPI) equation in patients 18 years and older. ??The reference range is >60 mL/min/1.73m2. ??eGFR values greater than 90 will be reported as >90mL/min/1.73m2. Reference: Neftali Castle Schmid CH, Ranulfo QUEZADA, 3rd Rojo Feldman HI, et. al. A new equation to estimate glomerular filtration rate. ??[employer] Med. 2009:150(9):604-12 eGFR NONAA CKD-EPI 8 See note. 2019 6:39 AM [facility] Comment: As of 2015 the estimated GFR is calculated from serum creatinine using the Chronic Kidney Disease Epidemiology Collaboration (CKD-EPI) equation in patients 18 years and older. ??The reference range is >60 mL/min/1.73m2. ??eGFR values greater than 90 will be reported as >90mL/min/1.73m2. Reference: Neftali Castle Schmid CH, Zhang YL, 3rd Rojo Feldman HI, et. al. A new equation to estimate glomerular filtration rate. ??[employer] Med. 2009:150(9):604-12 Plasma specimen (specimen) 07/19/2020 5:15 AM EST 07/19/2020 6:08 AM EST Addison Mendoza MD LAB BLOOD ORDE CJ Final Result Performing Organization Address [facility] de Phone Number [facility] [address] [facility]. [address] * Protime-INR, AM (07/19/2020 5:15 AM EST) Protime 14.5 12.1 - 15.1 seconds 07/19/2020 6:44 AM EST [facility] INR 1.1 0.9 - 1.1 07/19/2020 6:44 AM EST [facility] LAB Comment: RECOMMENDED THERAPEUTIC RANGES USING INR : ?Stable oral anticoagulant therapy: ? 2.0 - 3.0 ?Mechanical prosthetic heart valve: ? 2.5 - 3.5 ?Recurrent acute myocardial infarction: ? 2.5 - 3.5 Plasma specimen (specimen) 07/19/2020 5:15 AM EST 07/19/2020 6:09 AM EST Addison Mendoza MD LAB BLOOD ORDE CJ Final Result Performing Organization Address [facility] Co de Phone Number [facility] [address] [facility] [place] [address], [facility] * (ABNORMAL) Hepatic Function Panel, AM (07/19/2020 5:15 AM EST) Total Bilirubin 0.3 0.0 - 1.5 mg/dL 07/19/2020 6:39 AM EST [facility] LAB Bilirubin, Direct 0.07 0.00 - 0.40 mg/dL 07/19/2020 6:39 AM EST [facility] AST 7(L) 13 - 39 U/L 07/19/2020 6:39 AM EST [facility] ALT 3(L) 7 - 52 U/L 07/19/2020 6:39 AM EST [facility] Alkaline Phosphatase 52 36 - 125 U/L 07/19/2020 6:39 AM EST [facility] Total Protein 5.9(L) 6.4 - 8.9 g/dL 07/19/2020 6:39 AM EST [facility] Albumin 3.2(L) 3.5 - 5.7 g/dL 07/19/2020 6:39 AM EST [facility] Bilirubin, Indirect 0.23 0.00 - 1.10 mg/dL 07/19/2020 6:39 AM EST [facility] Plasma specimen (specimen) 07/19/2020 5:15 AM EST 07/19/2020 6:08 AM EST us Addison Mendoza MD LAB BLOOD ORDPravin CORONA Final Result Performing Organization Address City/State/[facility] Co de Phone Number [facility] [address] * (ABNORMAL) CBC, AM (07/19/2020 5:15 AM EST) WBC 3.0(L) 3.8 - 10.8 10E3/uL 07/19/2020 6:17 AM EST [facility] RBC 2.56(L) 4.20 - 5.80 10E6/uL 07/19/2020 6:17 AM EST [facility] Hemoglobin 7.5(L) 13.2 - 17.1 g/dL 07/19/2020 6:17 AM EST [facility] Hematocrit 22.7(L) 38.5 - 50.0 % 07/19/2020 6:17 AM EST [facility] MCV 88.6 80.0 - 100.0 fL 07/19/2020 6:17 AM EST [facility] MCH 29.2 27.0 - 33.0 pg 07/19/2020 6:17 AM EST [facility] MCHC 33.0 32.0 - 36.0 g/dL 07/19/2020 6:17 AM EST [facility] RDW 17.3(H) 11.0 - 15.0 % 07/19/2020 6:17 AM EST [facility] Platelets 106(L) 140 - 400 10E3/uL 07/19/2020 6:17 AM EST [facility] MPV 7.3(L) 7.5 - 11.5 fL 07/19/2020 6:17 AM EST [facility] Whole blood specimen (specimen) 07/19/2020 5:15 AM EST 07/19/2020 6:08 AM EST us Addison Mendoza MD LAB BLOOD ORDE RABLES Final Result [facility] [address] [facility]. [address] * (ABNORMAL) POC Glucose Monitoring Device (07/18/2020 6:18 PM EST) POC Glucose Monitoring Device 110(H) 70 - 100 mg/dL 07/18/2020 6:20 PM EST [facility] Blood specimen (specimen) 07/18/2020 6:18 PM EST 07/18/2020 6:20 PM EST us Rene Ewing MD POINT OF CARE TEST ORDERABLE S Final Result Performing Organization Address City/[facility]/ZIP Co de Phone Number [facility] [address] [facility]. [address] * (ABNORMAL) POC Glucose Monitoring Device (07/18/2020 12:26 PM EST) POC Glucose Monitoring Device 133(H) 70 - 100 mg/dL 07/18/2020 12:27 PM EST [facility] Blood specimen (specimen) 07/18/2020 12:26 PM EST 07/18/2020 12:27 PM EST us Rene Ewing MD POINT OF CARE TEST ORDERABLE S Final Result [facility] [address] [facility]. [address] * (ABNORMAL) POC Glucose Monitoring Device (07/18/2020 8:39 AM EST) POC Glucose Monitoring Device 104(H) 70 - 100 mg/dL 07/18/2020 8:40 AM EST [facility] Blood specimen (specimen) 07/18/2020 8:39 AM EST 07/18/2020 8:40 AM EST Rene Ewing MD POINT OF CARE TEST ORDERABLE S Final Result Performing Organization Address City/[facility]/ZIP Co de Phone Number [facility] [address] [place] [address], [facility] * Prepare RBC, leukoreduced, 2 Units (07/18/2020 6:15 AM EST) Product Code H3894U95 [facility] Unit Number [id number] HCLL Dispense Status Presumed Transfused_PT HCLL Blood Expiration Date HCLL Coding System [id number] HCLL Product Code I9129V99 HCLL Unit Number [id number] HCLL Dispense Status Presumed Transfused_PT HCLL Blood Expiration Date HCLL Coding System [id number] HCLL Specimen from blood bag from blood product (specimen) Addison Mendoza MD BLOOD BANK PRO DUCT ORDERABLES Final Result Performing Organization Address City/[facility]/ZIP Co de Phone Number HCLL * (ABNORMAL) POC Glucose Monitoring Device (07/17/2020 6:07 PM EST) POC Glucose Monitoring Device 129(H) 70 - 100 mg/dL 07/17/2020 6:17 PM EST [facility] Blood specimen (specimen) 07/17/2020 6:07 PM EST 07/17/2020 6:17 PM EST Rene Ewing MD POINT OF CARE TEST ORDERABLE S Final Result [facility] [address] [facility]. [address] * (ABNORMAL) POC Glucose Monitoring Device (07/17/2020 12:02 PM EST) POC Glucose Monitoring Device 104(H) 70 - 100 mg/dL 07/17/2020 12:03 PM EST [facility] Blood specimen (specimen) 07/17/2020 12:02 PM EST 07/17/2020 12:03 PM EST us Rene Ewing MD POINT OF CARE TEST ORDERABLE S Final Result Performing Organization Address [facility] Co de Phone Number [address] * (ABNORMAL) POC Glucose Monitoring Device (07/17/2020 9:13 AM EST) POC Glucose Monitoring Device 149(H) 70 - 100 mg/dL 07/17/2020 9:14 AM EST [facility] Blood specimen (specimen) 07/17/2020 9:13 AM EST 07/17/2020 9:14 AM EST us Rene Ewing MD POINT OF CARE TEST ORDERABLE S Final Result Performing Organization Address [facility] Co de Phone Number [facility] [address] [place] [address]. [address] * Transfuse RBC (07/17/2020 6:46 AM EST) us Addison Argueta TREATMENT ORDERABLES - BLOOD ADMIN Final Result Performing Organization Address City/[facility] Co de Phone Number EXTERNAL * Transfuse RBC Transfusion Rate: Per dept routine, 2 Units (07/17/2020 6:46 AM EST) us Addison Argueta TREATMENT ORDERABLES - BLOOD ADMIN Edited Result - Final Performing Organization Address [facility] de Phone Number EXTERNAL * (ABNORMAL) Hepatic Function Panel, AM (07/17/2020 6:07 AM EST) Total Bilirubin 0.3 0.0 - 1.5 mg/dL 07/17/2020 6:53 AM EST [facility] Bilirubin, Direct 0.04 0.00 - 0.40 mg/dL 07/17/2020 6:53 AM EST [facility] AST 7(L) 13 - 39 U/L 07/17/2020 6:53 AM EST [facility] ALT 6(L) 7 - 52 U/L 07/17/2020 6:53 AM EST [facility] Alkaline Phosphatase 53 36 - 125 U/L 07/17/2020 6:53 AM EST [facility] Total Protein 6.0(L) 6.4 - 8.9 g/dL 07/17/2020 6:53 AM EST [facility] Albumin 3.2(L) 3.5 - 5.7 g/dL 07/17/2020 6:53 AM EST [facility] Bilirubin, Indirect 0.26 0.00 - 1.10 mg/dL 07/17/2020 6:53 AM EST [facility] Plasma specimen (specimen) 07/17/2020 6:07 AM EST 07/17/2020 6:23 AM EST us Addison Mendoza MD LAB BLOOD KIESHA CORONA Final Result [facility] [address] [place] [address], [facility] * (ABNORMAL) Basic Metabolic panel, AM (07/17/2020 6:07 AM EST) Sodium 140 133 - 146 mmol/L 07/17/2020 6:53 AM EST [facility] Potassium 5.1 3.5 - 5.3 mmol/L 07/17/2020 6:53 AM EST [facility] Chloride 102 98 - 110 mmol/L 07/17/2020 6:53 AM EST [facility] CO2 26 21 - 33 mmol/L 07/17/2020 6:53 AM EST [facility] Anion Gap 12 3 - 16 mmol/L 07/17/2020 6:53 AM EST [facility] BUN 42(H) 7 - 25 mg/dL 07/17/2020 6:53 AM EST [facility] Creatinine 8.26(H) 0.60 - 1.30 mg/dL 07/17/2020 6:53 AM EST [facility] Glucose 152(H) 70 - 100 mg/dL 07/17/2020 6:53 AM EST [facility] Calcium 8.6 8.6 - 10.3 mg/dL 07/17/2020 6:53 AM EST [facility] Osmolality, Calculated 303 278 - 305 mOsm/kg 07/17/2020 6:53 AM EST [facility] eGFR AA CKD-EPI 8 See note. 0 6:53 AM EST [facility] Comment: As of 2015 the estimated GFR is calculated from serum creatinine using the Chronic Kidney Disease Epidemiology Collaboration (CKD-EPI) equation in patients 18 years and older. ??The reference range is >60 mL/min/1.73m2. ??eGFR values greater than 90 will be reported as >90mL/min/1.73m2. Reference: Neftali Castle Schmid CH, Zhang YL, 3rd Rojo Feldman HI, et. al. A new equation to estimate glomerular filtration rate. ??[employer] Med. 2009:150(9):604-12 eGFR NONAA CKD-EPI 7 See note. 2019 6:53 AM EST [facility] Comment: As of 2015 the estimated GFR is calculated from serum creatinine using the Chronic Kidney Disease Epidemiology Collaboration (CKD-EPI) equation in patients 18 years and older. ??The reference range is >60 mL/min/1.73m2. ??eGFR values greater than 90 will be reported as >90mL/min/1.73m2. Reference: Neftali Csatle Schmid CH, Zhang YL, 3rd Rojo Feldman HI, et. al. A new equation to estimate glomerular filtration rate. ??[employer] Med. 2009:150(9):604-12 Plasma specimen (specimen) 07/17/2020 6:07 AM EST 07/17/2020 6:23 AM EST us Addison Mendoza MD LAB BLOOD ORDE CJ Final Result [facility] [address] * (ABNORMAL) CBC, AM (07/17/2020 6:07 AM EST) WBC 3.1(L) 3.8 - 10.8 10E3/uL 07/17/2020 6:30 AM EST [facility] RBC 2.69(L) 4.20 - 5.80 10E6/uL 07/17/2020 6:30 AM EST [facility] Hemoglobin 7.8(L) 13.2 - 17.1 g/dL 07/17/2020 6:30 AM EST [facility] Hematocrit 24.1(L) 38.5 - 50.0 % 07/17/2020 6:30 AM EST [facility] MCV 89.6 80.0 - 100.0 fL 07/17/2020 6:30 AM EST [facility] MCH 29.0 27.0 - 33.0 pg 07/17/2020 6:30 AM EST [facility] MCHC 32.4 32.0 - 36.0 g/dL 07/17/2020 6:30 AM [facility] RDW 17.1(H) 11.0 - 15.0 % 07/17/2020 6:30 AM EST [facility] Platelets 96(L) 140 - 400 10E3/uL 07/17/2020 6:30 AM [facility] MPV 7.2(L) 7.5 - 11.5 fL 07/17/2020 6:30 AM [facility] Whole blood specimen (specimen) 07/17/2020 6:07 AM EST 07/17/2020 6:23 AM EST us Addison Mendoza MD LAB BLOOD KIESHA CORONA Final Result [facility] [address] * Vancomycin, random (07/17/2020 6:07 AM EST) Vancomycin Random 15.2 ug/mL 07/17/2020 6:50 AM EST [facility] Comment:Reference range not established for this test. Plasma specimen (specimen) 07/17/2020 6:07 AM EST 07/17/2020 6:23 AM EST Addison Mendoza MD LAB BLOOD ORDE RABLES Final Result Performing Organization Address [facility] Co de Phone Number [facility] [address] [facility]. [address] * Transfuse RBC (07/17/2020 2:04 AM EST) us Addison CRUZ G TREATMENT ORDERABLES - BLOOD ADMIN Final Result Performing Organization Address City/[facility] Co de Phone Number EXTERNAL * Antibody identification (07/16/2020 8:24 PM EST) Antibody Id. #1 Anti-C 07/16/2020 8:24 PM EST [facility] Antibody Id. #2 Anti-D 07/16/2020 8:24 PM EST [facility] Blood specimen (specimen) 07/16/2020 8:24 PM EST 07/16/2020 8:24 PM EST Addison Mendoza MD BLOOD BANK MASON T ORDERABLES Final Result Performing Organization Address [facility] Co de Phone Number [facility] [address] [facility] * Elution & antibody identification, RBC (07/16/2020 8:23 PM EST) Elution Result 1 Anti-D 07/16/2020 8:23 PM EST [facility] Blood specimen (specimen) 07/16/2020 8:23 PM EST 07/16/2020 8:23 PM EST Addison Mendoza MD BLOOD BANK MASON T ORDERABLES Final Result Performing Organization Address [facility] Co de Phone Number [facility] [address] [facility]. [address] * (ABNORMAL) POC Glucose Monitoring Device (07/16/2020 6:39 PM EST) POC Glucose Monitoring Device 187(H) 70 - 100 mg/dL 07/16/2020 6:40 PM EST [facility] Blood specimen (specimen) 07/16/2020 6:39 PM EST 07/16/2020 6:40 PM EST Rene Ewing MD POINT OF CARE TEST ORDERABLE S Final Result Performing Organization Address City/[facility]/ZIP Co de Phone Number [facility] [address] [place] [address] * ELIUD Anti-IgG (07/16/2020 4:35 PM EST) ELIUD IgG Positive 07/16/2020 4:35 PM EST [facility] Blood specimen (specimen) 07/16/2020 4:35 PM EST 07/16/2020 4:35 PM EST Addison Mendoza MD BLOOD BANK MASON T ORDERABLES Final Result Performing Organization Address [facility] Co de Phone Number [address] * (ABNORMAL) POC Glucose Monitoring Device (07/16/2020 3:16 PM EST) POC Glucose Monitoring Device 129(H) 70 - 100 mg/dL 07/16/2020 3:17 PM EST [facility] Blood specimen (specimen) 07/16/2020 3:16 PM EST 07/16/2020 3:17 PM EST Rene Ewing MD POINT OF CARE TEST ORDERABLE S Final Result Performing Organization Address [facility] Co de Phone Number [address] * Antibody Screen (07/16/2020 12:31 PM EST) Antibody Screen Positive 07/16/2020 2:20 PM EST [facility] Blood specimen (specimen) 07/16/2020 12:31 PM EST 07/16/2020 1:22 PM EST Narrative HEALTH LAB - 07/16/2020 2:54 PM EST Testing performed by [facility] Addison Mendoza MD BLOOD BANK MASON T ORDERABLES Final Result [facility] [address] * ABO/Rh (07/16/2020 12:31 PM EST) ABO Grouping O 07/16/2020 2:13 PM EST [facility] Rh Type Negative 07/16/2020 2:13 PM EST [facility] Blood specimen (specimen) 07/16/2020 12:31 PM EST 07/16/2020 1:22 PM EST Addison Mendoza MD BLOOD BANK MASON T ORDERABLES Final Result Performing Organization Address City/State/[facility] Co de Phone Number [facility] [address] * (ABNORMAL) CBC (07/16/2020 12:31 PM EST) WBC 3.0(L) 3.8 - 10.8 10E3/uL 07/16/2020 12:54 PM EST [facility] RBC 2.30(L) 4.20 - 5.80 10E6/uL 07/16/2020 12:54 PM EST [facility] Hemoglobin 6.7(L) 13.2 - 17.1 g/dL 07/16/2020 12:54 PM EST [facility] Hematocrit 20.8(L) 38.5 - 50.0 % 07/16/2020 12:54 PM EST [facility] MCV 90.4 80.0 - 100.0 fL 07/16/2020 12:54 PM EST [facility] MCH 29.0 27.0 - 33.0 pg 07/16/2020 12:54 PM EST [facility] MCHC 32.1 32.0 - 36.0 g/dL 07/16/2020 12:54 PM EST [facility] RDW 17.1(H) 11.0 - 15.0 % 07/16/2020 12:54 PM EST [facility] Platelets 100(L) 140 - 400 10E3/uL 07/16/2020 12:54 PM EST [facility] MPV 7.1(L) 7.5 - 11.5 fL 07/16/2020 12:54 PM EST [facility] Whole blood specimen (specimen) 07/16/2020 12:31 PM EST 07/16/2020 12:47 PM EST us Scotty Suarez MD LAB BLOOD ORDERABLES Fin al Result Performing Organization Address City/[facility]/ZIP Co de Phone Number [facility] [address] [facility]. [address] * (ABNORMAL) POC Glucose Monitoring Device (07/16/2020 9:38 AM EST) POC Glucose Monitoring Device 171(H) 70 - 100 mg/dL 07/16/2020 9:38 AM EST [facility] Blood specimen (specimen) 07/16/2020 9:38 AM EST 07/16/2020 9:38 AM EST us Rene Ewing MD POINT OF CARE TEST ORDERABLE S Final Result Performing Organization Address [facility] Co de Phone Number [facility] [address] [facility] * (ABNORMAL) Protime-INR, AM (07/16/2020 6:00 AM EST) Protime 15.7(H) 12.1 - 15.1 seconds 07/16/2020 6:58 AM EST [facility]ALTH LAB INR 1.2(H) 0.9 - 1.1 07/16/2020 6:58 AM EST [facility] Comment: RECOMMENDED THERAPEUTIC RANGES USING INR : ?Stable oral anticoagulant therapy: ? 2.0 - 3.0 ?Mechanical prosthetic heart valve: ? 2.5 - 3.5 ?Recurrent acute myocardial infarction: ? 2.5 - 3.5 Plasma specimen (specimen) 07/16/2020 6:00 AM EST 07/16/2020 6:39 AM EST us Addison Mendoza MD LAB BLOOD CAROLEPravin CORONA Final Result [facility] [address] [facility]. [place] [id number], [facility] * (ABNORMAL) Basic Metabolic panel, AM (07/16/2020 6:00 AM EST) Sodium 139 133 - 146 mmol/L 07/16/2020 7:16 AM EST [facility] Potassium 5.1 3.5 - 5.3 mmol/L 07/16/2020 7:16 AM EST [facility] Chloride 103 98 - 110 mmol/L 07/16/2020 7:16 AM EST [facility] CO2 26 21 - 33 mmol/L 07/16/2020 7:16 AM EST [facility] Anion Gap 10 3 - 16 mmol/L 07/16/2020 7:16 AM EST [facility] BUN 41(H) 7 - 25 mg/dL 07/16/2020 7:16 AM EST [facility] Creatinine 7.57(H) 0.60 - 1.30 mg/dL 07/16/2020 7:16 AM EST [facility] Glucose 109(H) 70 - 100 mg/dL 07/16/2020 7:16 AM EST [facility] Calcium 8.3(L) 8.6 - 10.3 mg/dL 07/16/2020 7:16 AM EST [facility] LAB Osmolality, Calculated 299 278 - 305 mOsm/kg 07/16/2020 7:16 AM EST [facility] eGFR AA CKD-EPI 9 See note. 0 7:16 AM EST [facility] LAB Comment: As of 2015 the estimated GFR is calculated from serum creatinine using the Chronic Kidney Disease Epidemiology Collaboration (CKD-EPI) equation in patients 18 years and older. ??The reference range is >60 mL/min/1.73m2. ??eGFR values greater than 90 will be reported as >90mL/min/1.73m2. Reference: Neftali Castle Schmid CH, Zhang YL, 3rd Rojo Feldman HI, et. al. A new equation to estimate glomerular filtration rate. ??[employer]. 2009:150(9):604-12 eGFR NONAA CKD-EPI 8 See note. 2019 7:16 AM EST [facility] Comment: As of 2015 the estimated GFR is calculated from serum creatinine using the Chronic Kidney Disease Epidemiology Collaboration (CKD-EPI) equation in patients 18 years and older. ??The reference range is >60 mL/min/1.73m2. ??eGFR values greater than 90 will be reported as >90mL/min/1.73m2. Reference: Neftali Castle Schmid CH, Zhang YL, 3rd Alia, Quan MILLER, et. al. A new equation to estimate glomerular filtration rate. ??[employer] Med. 2009:150(9):604-12 Plasma specimen (specimen) 07/16/2020 6:00 AM EST 07/16/2020 6:39 AM EST us Addison Mendoza MD LAB BLOOD ORDPravin CORONA Final Result [facility] [address] * (ABNORMAL) Hepatic Function Panel, AM (07/16/2020 6:00 AM EST) Total Bilirubin 0.4 0.0 - 1.5 mg/dL 07/16/2020 7:16 AM EST [facility] Bilirubin, Direct 0.11 0.00 - 0.40 mg/dL 07/16/2020 7:16 AM EST [facility] AST 10(L) 13 - 39 U/L 07/16/2020 7:16 AM EST [facility] ALT 6(L) 7 - 52 U/L 07/16/2020 7:16 AM EST [facility] Alkaline Phosphatase 54 36 - 125 U/L 07/16/2020 7:16 AM EST [facility] Total Protein 5.9(L) 6.4 - 8.9 g/dL 07/16/2020 7:16 AM EST [facility] Albumin 3.1(L) 3.5 - 5.7 g/dL 07/16/2020 7:16 AM EST [facility] Bilirubin, Indirect 0.29 0.00 - 1.10 mg/dL 07/16/2020 7:16 AM EST [facility] Plasma specimen (specimen) 07/16/2020 6:00 AM EST 07/16/2020 6:39 AM EST us Addison Mendoza MD LAB BLOOD ORDE RABLES Final Result Performing Organization Address [facility] [place] Co de Phone Number [facility] [address] [place] [address]. [address] * Vancomycin, random (07/16/2020 6:00 AM EST) Vancomycin Random 10.2 ug/mL 07/16/2020 7:11 AM EST [facility] Comment:Reference range not established for this test. Plasma specimen (specimen) 07/16/2020 6:00 AM EST 07/16/2020 6:39 AM EST us Addison Mendoza MD LAB BLOOD ORDE RABLES Final Result Performing Organization Address City/[facility] [place]/[facility] Co de Phone Number [facility] [address] [place] [address]. [address] * (ABNORMAL) POC Glucose Monitoring Device (07/15/2020 11:15 PM EST) POC Glucose Monitoring Device 110(H) 70 - 100 mg/dL 07/15/2020 11:15 PM EST [facility] Blood specimen (specimen) 07/15/2020 11:15 PM EST 07/15/2020 11:15 PM EST us Rene Ewing MD POINT OF CARE TEST ORDERABLE S Final Result Performing Organization Address [facility] [place]/ZIP Co de Phone Number [facility] [address] * (ABNORMAL) POC Glucose Monitoring Device (07/15/2020 4:20 PM EST) POC Glucose Monitoring Device 102(H) 70 - 100 mg/dL 07/15/2020 4:20 PM EST [facility] Blood specimen (specimen) 07/15/2020 4:20 PM EST 07/15/2020 4:20 PM EST Rene Ewing MD POINT OF CARE TEST ORDERABLE S Final Result Performing Organization Address [facility] [place]/[facility] Co de Phone Number [facility] [address] [facility]. [address] * (ABNORMAL) POC Glucose Monitoring Device (07/15/2020 2:29 PM EST) POC Glucose Monitoring Device 115(H) 70 - 100 mg/dL 07/15/2020 2:40 PM EST [facility] Blood specimen (specimen) 07/15/2020 2:29 PM EST 07/15/2020 2:39 PM EST Rene Ewing MD POINT OF CARE TEST ORDERABLE S Final Result Performing Organization Address [facility] [place]/[facility] Co de Phone Number [facility] [address] [facility]. [address] * (ABNORMAL) Hepatitis B Surface Antibody, Quantitati (07/15/2020 1:19 PM EST) HBSAB NUMBER 23.34(H) 0.00 - 7.99 mIU/mL 07/15/2020 2:45 PM EST [facility] Hep B S Ab Reactive( A) Nonreactive 07/15/2020 2:45 PM EST [facility] Serum specimen (specimen) 07/15/2020 1:19 PM EST 07/15/2020 1:27 PM EST Narrative [facility] - 07/16/2020 8:58 AM EST Individual is considered immune to HBV infection. The results of the multi-test panel are inconsistent. Repeat testing is recommended. Luis Alberto Alcantar MD LAB BLOOD ORDERABLES Final Res ult Performing Organization Address [facility] [place]/[facility] de Phone Number [facility] [address] [facility]. [address] * Hepatitis B Core Antibody (07/15/2020 1:19 PM EST) Hep B Core Total Ab Nonreactive Nonreactive 07/15/2020 2:38 PM EST [facility] Comment:Health Department no tified in accordance with reportable infectious disease guidelines. Serum specimen (specimen) 07/15/2020 1:19 PM EST 07/15/2020 1:27 PM EST [facility] - 07/16/2020 8:58 AM EST A nonreactive final interpretation indicates that anti-HBc antibodies were not detected in the sample; it is possible that the individual is not infected with HBV. The results of the multi-test panel are inconsistent. Repeat testing is recommended. Luis Alberto Alcantar MD LAB BLOOD ORDERABLES Final Res ult Performing Organization Address [facility] [place]/[facility] de Phone Number [facility] [address] [facility]. [address] * Hepatitis A IgM (07/15/2020 1:19 PM EST) Hep A IgM Nonreactive Nonreactive 07/15/2020 2:41 PM EST [facility] Serum specimen (specimen) 07/15/2020 1:19 PM EST 07/15/2020 1:27 PM EST [facility] - 07/15/2020 2:41 PM EST IgM anti-HAV not detected. Does not exclude the possibility of exposure to or infection with HAV. ??Levels of IgM anti-HAV may be below the cut-off in early infection. Luis Alberto Alcantar MD LAB BLOOD ORDERABLES Final Res ult Performing Organization Address City/[facility] [place]/[facility] Co de Phone Number [facility] [address] [facility] * Hepatitis C Antibody (07/15/2020 1:19 PM EST) Pathologist [facility] HCV Ab Nonreactive Nonreactive 07/15/2020 2:40 PM EST [facility] Comment:Health Department no tified in accordance with reportable infectious disease guidelines. Serum specimen (specimen) 07/15/2020 1:19 PM EST 07/15/2020 1:27 PM EST [facility] - 07/15/2020 2:40 PM EST Antibodies to HCV not detected; does not exclude the possibility of exposure to HCV. us Luis Alberto Alcantar MD LAB BLOOD ORDERABLES Final Res ult Performing Organization Address [facility] [place]/[facility] Co de Phone Number [facility] [address] [facility]. [address] * (ABNORMAL) Hepatitis B surface antigen (07/15/2020 1:19 PM EST) [facility] Hepatitis B Surface Ag Confirm Confirmed Positive Confirmed Positive 07/16/2020 8:58 AM EST [facility] Hep B Surface Ag Reactive(A) Nonreactive 07/16/2020 8:58 AM EST [facility] Comment:Health Department no tified in accordance with reportable infectious disease guidelines. Serum specimen (specimen) 07/15/2020 1:19 PM EST 07/15/2020 1:27 PM EST [facility] - 07/16/2020 8:58 AM EST The results of the multi-test panel are inconsistent. Repeat testing is recommended. Specimen is considered repeatedly Reactive. ??Confirmed using the [employer] HBsAg qualitative confirmation assay. Luis Alberto Alcantar MD LAB BLOOD ORDERABLES Final Res ult Performing Organization Address City/[facility] [place]/ZIP Co de Phone Number [facility] [address] * Vancomycin, random (07/15/2020 10:39 AM EST) Pathologist [facility] Vancomycin Random 13.9 ug/mL 07/15/2020 11:29 AM EST [facility] Comment:Reference range not established for this test. Plasma specimen (specimen) 07/15/2020 10:39 AM EST 07/15/2020 11:04 AM EST Rene Ewing MD LAB BLOOD ORDERABLES Final R esult Performing Organization Address [facility] [place]/[facility] Co de Phone Number [facility] [address] * (ABNORMAL) POC Glucose Monitoring Device (07/15/2020 9:26 AM EST) POC Glucose Monitoring Device 101(H) 70 - 100 mg/dL 07/15/2020 9:27 AM EST [facility] Blood specimen (specimen) 07/15/2020 9:26 AM EST 07/15/2020 9:27 AM EST Rene Ewing MD POINT OF CARE TEST ORDERABLE S Final Result Performing Organization Address [facility] [place]/[facility] de Phone Number [facility] [address] * POC Glucose Monitoring Device (07/15/2020 7:29 AM EST) POC Glucose Monitoring Device 95 70 - 100 mg/dL 07/15/2020 7:30 AM EST [facility] Blood specimen (specimen) 07/15/2020 7:29 AM EST 07/15/2020 7:30 AM EST Rene Ewing MD POINT OF CARE TEST ORDERABLE S Final Result Performing Organization Address [facility] [place]/[facility] Co de Phone Number [facility] [address] [facility] * POC Glucose Monitoring Device (07/15/2020 5:58 AM EST) POC Glucose Monitoring Device 98 70 - 100 mg/dL 07/15/2020 5:59 AM EST [facility] Blood specimen (specimen) 07/15/2020 5:58 AM EST 07/15/2020 5:59 AM EST us Rene Ewing MD POINT OF CARE TEST ORDERABLE S Final Result [facility] [address] * Differential (07/15/2020 5:42 AM EST) Neutrophils Relative 54.4 40.0 - 80.0 % 07/15/2020 9:45 AM EST [facility] Lymphocytes Relative 33.0 15.0 - 45.0 % 07/15/2020 9:45 AM EST [facility] Monocytes Relative 8.7 0.0 - 12.0 % 07/15/2020 9:45 AM EST [facility] Eosinophils Relative 2.9 0.0 - 8.0 % 07/15/2020 9:45 AM EST [facility] Basophils Relative 1.0 0.0 - 1.0 % 07/15/2020 9:45 AM EST [facility] Neutrophils Absolute 3,046 1,500 - 7,800 /uL 07/15/2020 9:45 AM EST [facility] Lymphocytes Absolute 1,848 850 - 3,900 /uL 07/15/2020 9:45 AM EST [facility] Monocytes Absolute 487 200 - 950 /uL 07/15/2020 9:45 AM EST [facility] Eosinophils Absolute 162 15 - 500 /uL 07/15/2020 9:45 AM EST [facility] Basophils Absolute 56 0 - 200 /uL 07/15/2020 9:45 AM EST [facility] RBC Morphology Normal 07/15/2020 9:45 AM EST [facility] PLT Morphology Platelet morphology appears normal 07/15/2020 9:45 AM EST [facility] Whole blood specimen (specimen) 07/15/2020 5:42 AM EST 07/15/2020 8:06 AM EST us Sonu Rose DO LAB BLOOD ORDERABLES Fi nal Result [facility] [address] * (ABNORMAL) CBC (07/15/2020 5:42 AM EST) WBC 5.6 3.8 - 10.8 10E3/uL 07/15/2020 8:36 AM EST [facility] RBC 2.35(L) 4.20 - 5.80 10E6/uL 07/15/2020 8:36 AM EST [facility] Hemoglobin 6.9(L) 13.2 - 17.1 g/dL 07/15/2020 8:36 AM EST [facility] Hematocrit 21.5(L) 38.5 - 50.0 % 07/15/2020 8:36 AM EST [facility] MCV 91.3 80.0 - 100.0 fL 07/15/2020 8:36 AM EST [facility] MCH 29.4 27.0 - 33.0 pg 07/15/2020 8:36 AM EST [facility] MCHC 32.2 32.0 - 36.0 g/dL 07/15/2020 8:36 AM EST [facility] RDW 16.8(H) 11.0 - 15.0 % 07/15/2020 8:36 AM EST [facility] Platelets 132(L) 140 - 400 10E3/uL 07/15/2020 8:36 AM EST [facility] MPV 7.3(L) 7.5 - 11.5 fL 07/15/2020 8:36 AM EST [facility] Whole blood specimen (specimen) 07/15/2020 5:42 AM EST 07/15/2020 8:06 AM EST Sonu Rose DO LAB BLOOD ORDERABLES Fi nal Result Performing Organization Address [facility] [place]/ZIP Co de Phone Number [facility] [address] * Magnesium (07/15/2020 5:42 AM EST) Magnesium 2.3 1.5 - 2.5 mg/dL 07/15/2020 9:56 AM EST [facility] Plasma specimen (specimen) 07/15/2020 5:42 AM EST 07/15/2020 8:12 AM EST Sonu Rose DO LAB BLOOD ORDERABLES Fi nal Result [facility] [address] [place] [address], [facility] * (ABNORMAL) Renal Function Panel w/EGFR (07/15/2020 5:42 AM EST) Sodium 142 133 - 146 mmol/L 07/15/2020 9:56 AM EST [facility] Potassium 6.3(H) 3.5 - 5.3 mmol/L 07/15/2020 9:56 AM EST [facility] Chloride 105 98 - 110 mmol/L 07/15/2020 9:56 AM EST [facility] CO2 22 21 - 33 mmol/L 07/15/2020 9:56 AM EST [facility] Anion Gap 15 3 - 16 mmol/L 07/15/2020 9:56 AM EST [facility] BUN 73(H) 7 - 25 mg/dL 07/15/2020 9:56 AM EST [facility] Creatinine 11.21(H) 0.60 - 1.30 mg/dL 07/15/2020 9:56 AM EST [facility] Glucose 87 70 - 100 mg/dL 07/15/2020 9:56 AM EST [facility] Calcium 8.7 8.6 - 10.3 mg/dL 07/15/2020 9:56 AM EST [facility] Phosphorus 9.0(H) 2.1 - 4.7 mg/dL 07/15/2020 9:56 AM EST [facility] Albumin 3.4(L) 3.5 - 5.7 g/dL 07/15/2020 9:56 AM EST [facility] Osmolality, Calculated 315(H) 278 - 305 mOsm/kg 07/15/2020 9:56 AM EST [facility] eGFR AA CKD-EPI 6 See note. 0 9:56 AM EST [facility] Comment: As of 2015 the estimated GFR is calculated from serum creatinine using the Chronic Kidney Disease Epidemiology Collaboration (CKD-EPI) equation in patients 18 years and older. ??The reference range is >60 mL/min/1.73m2. ??eGFR values greater than 90 will be reported as >90mL/min/1.73m2. Reference: Isabel , Neftali LA, Marion CH, [place] YL, Colten AF, 3rd, Quan HI, et. al. A new equation to estimate glomerular filtration rate. ??[employer]. 2009:150(9):604-12 eGFR NONAA CKD-EPI 5 See note. 07/15/2020 9:56 AM EST [facility] Comment: As of 2015 the estimated GFR is calculated from serum creatinine using the Chronic Kidney Disease Epidemiology Collaboration (CKD-EPI) equation in patients 18 years and older. ??The reference range is >60 mL/min/1.73m2. ??eGFR values greater than 90 will be reported as >90mL/min/1.73m2. Reference: Isabel , Neftali LA, Marion CH, Ranulfo YL, Colten AF, 3rd, Quan HI, et. al. A new equation to estimate glomerular filtration rate. ??[employer]. 2009:150(9):604-12 Plasma specimen (specimen) 07/15/2020 5:42 AM EST 07/15/2020 8:12 AM EST us Sonu Rose DO LAB BLOOD ORDERABLES Fi nal Result Performing Organization Address City/[facility] [place]/ZIP Co de Phone Number [facility] [address] * (ABNORMAL) POC Glucose Monitoring Device (07/15/2020 4:52 AM EST) POC Glucose Monitoring Device 104(H) 70 - 100 mg/dL 07/15/2020 4:52 AM EST [facility] Blood specimen (specimen) 07/15/2020 4:52 AM EST 07/15/2020 4:52 AM EST us Rene Ewing MD POINT OF CARE TEST ORDERABLE S Final Result [facility] [address] * (ABNORMAL) POC Glucose Monitoring Device (07/15/2020 3:41 AM EST) POC Glucose Monitoring Device 105(H) 70 - 100 mg/dL 07/15/2020 3:41 AM EST [facility] Blood specimen (specimen) 07/15/2020 3:41 AM EST 07/15/2020 3:41 AM EST Rene Ewing MD POINT OF CARE TEST ORDERABLE S Final Result Performing Organization Address [facility] [place]/[facility] Co de Phone Number [facility] [address] [facility]. [address] * POC Glucose Monitoring Device (07/15/2020 2:44 AM EST) POC Glucose Monitoring Device 97 70 - 100 mg/dL 07/15/2020 2:44 AM EST [facility] Blood specimen (specimen) 07/15/2020 2:44 AM EST 07/15/2020 2:44 AM EST Rene Ewing MD POINT OF CARE TEST ORDERABLE S Final Result Performing Organization Address [facility] [place]/[facility] de Phone Number [facility] [address] [facility] * (ABNORMAL) POC Glucose Monitoring Device (07/15/2020 1:28 AM EST) POC Glucose Monitoring Device 115(H) 70 - 100 mg/dL 07/15/2020 1:28 AM EST [facility] Blood specimen (specimen) 07/15/2020 1:28 AM EST 07/15/2020 1:28 AM EST Rene Ewing MD POINT OF CARE TEST ORDERABLE S Final Result Performing Organization Address [facility] [place]/[facility] Co de Phone Number [facility] [address] [place] [facility]. [address] * (ABNORMAL) POC Glucose Monitoring Device (07/15/2020 1:27 AM EST) POC Glucose Monitoring Device 66(L) 70 - 100 mg/dL 07/15/2020 1:28 AM EST [facility] Blood specimen (specimen) 07/15/2020 1:27 AM EST 07/15/2020 1:28 AM EST us Rene Ewing MD POINT OF CARE TEST ORDERABLE S Final Result Performing Organization Address [facility] [place]/[facility] Co de Phone Number [facility] [address] [facility]. [address] * (ABNORMAL) Sed Rate (07/15/2020 12:28 AM EST) Sed Rate 21(H) 0 - 15 mm/hr 07/15/2020 1:22 AM EST [facility] Whole blood specimen (specimen) 07/15/2020 12:28 AM EST 07/15/2020 1:09 AM EST Sonu Rose DO LAB BLOOD ORDERABLES Fi nal Result Performing Organization Address [facility] [place]/[facility] Co de Phone Number [facility] [address] [facility]. [address] * #1 Blood culture-Peripheral site 1 (07/15/2020 12:04 AM EST) Culture Result No Growth After 5 Days [facility] Blood specimen (specimen) BLOOD SPECIMEN / Unknown 07/15/2020 12:04 AM EST 07/15/2020 2:31 AM EST Sonu Rose DO MICROBIOLOGY - GENERAL ORDERABLES Final Result Performing Organization Address [facility] [place]/[facility] de Phone Number [facility] [address] [facility]. [address] * (ABNORMAL) Protime-INR (07/14/2020 11:34 PM EST) Protime 15.6(H) 12.1 - 15.1 seconds 07/15/2020 12:15 AM EST [facility] INR 1.2(H) 0.9 - 1.1 07/15/2020 12:15 AM EST [facility] Comment: RECOMMENDED THERAPEUTIC RANGES USING INR : ?Stable oral anticoagulant therapy: ? 2.0 - 3.0 ?Mechanical prosthetic heart valve: ? 2.5 - 3.5 ?Recurrent acute myocardial infarction: ? 2.5 - 3.5 Plasma specimen (specimen) 07/14/2020 11:34 PM EST 07/14/2020 11:39 PM EST Sonu Rose DO LAB BLOOD ORDERABLES Fi nal Result Performing Organization Address [facility] [place]/[facility] Co de Phone Number [facility] [address] [facility] * (ABNORMAL) Cyclosporine level (07/14/2020 11:34 PM EST) Pathologist [facility] Cyclosporine, Blood 59(L) 100 - 400 ng/mL 07/15/2020 1:36 PM EST [facility] Comment: Detection limit: ??30 ng/mL. ??Performed via chemiluminescent microparticle immunoassay on the [employer] i1000. Whole blood specimen (specimen) 07/14/2020 11:34 PM EST 07/14/2020 11:39 PM EST Sonu Rose DO LAB BLOOD ORDERABLES Fi nal Result Performing Organization Address [facility] [place]/[facility] de Phone Number [facility] [address] [facility] * (ABNORMAL) Hepatic Function Panel (07/14/2020 11:34 PM EST) Total Bilirubin 0.4 0.0 - 1.5 mg/dL 07/15/2020 12:11 AM EST [facility] Bilirubin, Direct 0.10 0.00 - 0.40 mg/dL 07/15/2020 12:11 AM EST [facility] AST 9(L) 13 - 39 U/L 07/15/2020 12:11 AM EST [facility] ALT 5(L) 7 - 52 U/L 07/15/2020 12:11 AM EST [facility] Alkaline Phosphatase 63 36 - 125 U/L 07/15/2020 12:11 AM EST [facility] Total Protein 7.0 6.4 - 8.9 g/dL 07/15/2020 12:11 AM EST [facility] Albumin 3.6 3.5 - 5.7 g/dL 07/15/2020 12:11 AM EST [facility] Bilirubin, Indirect 0.30 0.00 - 1.10 mg/dL 07/15/2020 12:11 AM EST [facility] Plasma specimen (specimen) 07/14/2020 11:34 PM EST 07/14/2020 11:39 PM EST Sonu Rose DO LAB BLOOD ORDERABLES Fi nal Result Performing Organization Address City/[facility] [place]/ZIP Co de Phone Number [facility] [address] [facility] * (ABNORMAL) C-Reactive Protein (07/14/2020 11:34 PM EST) CRP 23.8(H) 1.0 - 10.0 mg/L 07/15/2020 12:11 AM EST [facility] Plasma specimen (specimen) 07/14/2020 11:34 PM EST 07/14/2020 11:39 PM EST Sonu Rose DO LAB BLOOD ORDERABLES Fi nal Result Performing Organization Address City/[facility] [place]/ZIP Co de Phone Number [facility] [address] * #2 Blood culture-Peripheral site 2 (07/14/2020 11:34 PM EST) Culture Result No Growth After 5 Days [facility] Blood specimen (specimen) BLOOD SPECIMEN / Unknown 07/14/2020 11:34 PM EST 07/15/2020 2:30 AM EST Sonu Rose DO MICROBIOLOGY - GENERAL ORDERABLES Final Result Performing Organization Address City/[facility] [place]/ZIP Co de Phone Number [facility] [address] [facility]. [address] * (ABNORMAL) CBC (07/14/2020 11:34 PM EST) WBC 5.2 3.8 - 10.8 10E3/uL 07/15/2020 12:10 AM EST [facility] RBC 2.58(L) 4.20 - 5.80 10E6/uL 07/15/2020 12:10 AM EST [facility] Hemoglobin 7.5(L) 13.2 - 17.1 g/dL 07/15/2020 12:10 AM EST [facility] Hematocrit 23.4(L) 38.5 - 50.0 % 07/15/2020 12:10 AM EST [facility] MCV 90.5 80.0 - 100.0 fL 07/15/2020 12:10 AM EST [facility] MCH 29.1 27.0 - 33.0 pg 07/15/2020 12:10 AM EST [facility] MCHC 32.2 32.0 - 36.0 g/dL 07/15/2020 12:10 AM EST [facility] RDW 16.9(H) 11.0 - 15.0 % 07/15/2020 12:10 AM EST [facility] Platelets 146 140 - 400 10E3/uL 07/15/2020 12:10 AM [facility] MPV 7.3(L) 7.5 - 11.5 fL 07/15/2020 12:10 AM EST [facility] Whole blood specimen (specimen) 07/14/2020 11:34 PM EST 07/14/2020 11:39 PM EST us Sonu Rose DO LAB BLOOD ORDERABLES Fi nal Result [facility] [address] [place] [facility]. [address] * (ABNORMAL) Phosphorus (07/14/2020 11:34 PM EST) Phosphorus 9.3(H) 2.1 - 4.7 mg/dL 07/15/2020 12:11 AM EST [facility] Plasma specimen (specimen) 07/14/2020 11:34 PM EST 07/14/2020 11:39 PM EST Sonulesley GonzalezMauryvida Rose DO LAB BLOOD ORDERABLES Fi nal Result [facility] [address] [facility] * Magnesium (07/14/2020 11:34 PM EST) Magnesium 2.3 1.5 - 2.5 mg/dL 07/15/2020 12:11 AM EST [facility] [facility] Plasma specimen (specimen) 07/14/2020 11:34 PM EST 07/14/2020 11:39 PM EST Sonu Maury Rose DO LAB BLOOD ORDERABLES Fi nal Result Performing Organization Address [facility] Co de Phone Number [facility] [address] [facility] * (ABNORMAL) Basic metabolic panel (07/14/2020 11:34 PM EST) Sodium 141 133 - 146 mmol/L 07/15/2020 12:11 AM EST [facility] Potassium 6.2(H) 3.5 - 5.3 mmol/L 07/15/2020 12:11 AM EST [facility] Chloride 105 98 - 110 mmol/L 07/15/2020 12:11 AM EST [facility] CO2 21 21 - 33 mmol/L 07/15/2020 12:11 AM EST [facility] Anion Gap 15 3 - 16 mmol/L 07/15/2020 12:11 AM EST [facility] BUN 72(H) 7 - 25 mg/dL 07/15/2020 12:11 AM EST [facility] Creatinine 11.30(H) 0.60 - 1.30 mg/dL 07/15/2020 12:11 AM EST [facility] Glucose 103(H) 70 - 100 mg/dL 07/15/2020 12:11 AM EST [facility] Calcium 8.8 8.6 - 10.3 mg/dL 07/15/2020 12:11 AM EST [facility] Osmolality, Calculated 313(H) 278 - 305 mOsm/kg 07/15/2020 12:11 AM EST [facility] eGFR AA CKD-EPI 6 See note. 12/02/202 0 12:11 AM EST [facility] Comment: As of 2015 the estimated GFR is calculated from serum creatinine using the Chronic Kidney Disease Epidemiology Collaboration (CKD-EPI) equation in patients 18 years and older. ??The reference range is >60 mL/min/1.73m2. ??eGFR values greater than 90 will be reported as >90mL/min/1.73m2. Reference: Neftali Castle Schmid CH, Zhang YL, 3rd Rojo Feldman HI, et. al. A new equation to estimate glomerular filtration rate. ??[employer]. 2009:150(9):604-12 eGFR NONAA CKD-EPI 5 See note. 07/15/2020 12:11 AM EST [facility] Comment: As of 2015 the estimated GFR is calculated from serum creatinine using the Chronic Kidney Disease Epidemiology Collaboration (CKD-EPI) equation in patients 18 years and older. ??The reference range is >60 mL/min/1.73m2. ??eGFR values greater than 90 will be reported as >90mL/min/1.73m2. Reference: Neftali Castle Schmid CH, Zhang YL, 3rd Alia, Quan MILLER, et. al. A new equation to estimate glomerular filtration rate. ??[employer]. 2009:150(9):604-12 Plasma specimen (specimen) 07/14/2020 11:34 PM EST 07/14/2020 11:39 PM EST us Sonu Rose DO LAB BLOOD ORDERABLES Fi nal Result [facility] [address] [place] [address], [facility] * X-ray Comparison Images (07/14/2020 10:46 PM EST) Narrative EXTERNAL - 07/14/2020 10:46 PM EST Images associated with this accession number were presented to us for comparison to an examination performed here. us Sonu Rose PhD IMG DIAGNOSTIC IMAGING ORDERA BLES Final Result EXTERNAL * 2019 Novel Coronavirus (CoVID-19), FRANKLYN-B (07/14/2020 10:35 PM EST) SARS-CoV-2 Not Detected Not Detected 07/15/2020 12:52 PM EST [facility] Comment: This test is an amplified nucleic acid assay performed on a real time PCR platform. ??This test was developed and its performance characteristics determined by the [facility]. ??This test has not been cleared [...] ??Test results have been sent to the [facility] in accordance with state requirements. ??For a healthcare provider fact sheet, see https://www.fda.gov/media/347338/download. ??For a patient fact sheet, see https://www.fda.gov/media/464864/download. Test LOINC ordered 94281-5 2019 12:52 PM EST [facility] Device identifier [employer] COVID-19 Combo Kit_EUA 07/15/2020 12:52 PM EST [facility] First Test No 07/15/2020 12:52 PM EST [facility] Healthcare employee No 07/15/2020 12:52 PM EST [facility] Symptomatic No 07/15/2020 12:52 PM EST [facility] Hospitalized Yes 07/15/2020 12:52 PM EST [facility] In ICU No 07/15/2020 12:52 PM EST [facility] Congregate Care Resident No 07/15/2020 12:52 PM EST [facility] No 07/15/2020 12:52 PM EST [facility] Nasopharyngeal swab (specimen) NASOPHARYNGEAL STRUCTURE / Unknown 07/14/2020 10:35 PM EST 07/14/2020 10:44 PM EST Narrative [facility] - 07/15/2020 12:52 PM EST Does the patient have symptoms of Covid-19 (eg. Fever, dyspnea, cough, loss of smell)?->No Does the patient urgently (in <24 hours) require a surgery, invasive procedure, or cardiac stress test?->No Is the patient being admitted to labor and delivery in active labor?->No Does the patient fit any of these categories? (select all that apply)->None of the above Sonu Rose DO BODY FLUIDS AND STOOLS ORDERABLES Final Result Performing Organization Address [facility] Co de Phone Number [facility] [address] * ECG 12 lead (MUSE) (07/14/2020 10:15 PM EST) 07/14/2020 10:1 5 PM EST Narrative MUSE - 07/15/2020 2:16 PM EST Ventricular Rate: ??89 ??BPM Atrial Rate: ??89 ??BPM P-R Interval: ??216 ??ms QRS Duration: ??108 ??ms QT: ??410 ??ms QTc: ??498 ??ms P [place]: ??19 ??degrees R [place]: ??73 ??degrees T [place]: ??82 ??degrees Diagnosis Line: ??SINUS RHYTHM WITH 1ST DEGREE A-V BLOCK ^ PROLONGED QT ^ ABNORMAL ECG ^ COMPARED TO THE ECG OF 31-MAY-2020 06:17, ^ NONSPECIFIC T WAVE CHANGE, IMPROVED IN INFERIOR LEADS ^ T WAVE INVERSION NO LONGER EVIDENT IN ANTEROLATERAL LEADS ^ Confirmed by TRISTA DAVIS MD ([id number]) on 07/15/2020 2:16:08 PM us Sonu Rose DO ECG ORDERABLES Final R esult Performing Organization Address [facility] Co de Phone Number MUSE * POC Glucose Monitoring Device (07/14/2020 9:51 PM EST) POC Glucose Monitoring Device 89 70 - 100 mg/dL 07/14/2020 9:52 PM EST [facility] Blood specimen (specimen) 07/14/2020 9:51 PM EST 07/14/2020 9:52 PM EST us Rene Ewing MD POINT OF CARE TEST ORDERABLE S Final Result [facility] [address] [place] [address], [facility] documented in this encounter Visit Diagnoses Diagnosis Osteomyelitis ([facility])- Primary Unspecified osteomyelitis, site unspecified Vertebral osteomyelitis ([facility]) Unspecified osteomyelitis, other specified site ESRD (end stage renal disease) ([facility]) End stage renal disease Hyperkalemia Hyperpotassemia Other chronic osteomyelitis, unspecified site ([facility]-HCC) Liver transplant status ([facility]) Vertebral osteomyelitis ([facility]) Unspecified osteomyelitis, other specified site documented in this encounter Administered Medications Inactive Administered Medications - up to 3 most recent administrations Medication Order MAR Action Action Date Dose Rate Site acetaminophen (TYLENOL) tablet 650 mg 650 mg, Oral, Every 4 hours PRN, Pain Score (NRS) =, Fever, temp greater than 101 F or pain score NRS 1 - 10; use prior to opioids if opiods are also ordered, then reassess pain score within 90 minutes, Starting on Mon07/14/20 at 2100, Maximum dose of acetaminophen is 4000 mg (4 grams) from all sources in 24 hours. Given 07/20/2020 11:23 AM EST 650 mg Given 07/18/2020 10:10 AM EST 650 mg Given 07/17/2020 6:15 PM EST 650 mg aspirin chewable tablet 81 mg 81 mg, Oral, Daily with breakfast, First dose on Mon07/15/20 at 0800 Given 07/20/2020 8:05 AM EST 81 mg Given 07/19/2020 9:29 AM EST 81 mg Given 07/18/2020 8:41 AM EST 81 mg benzocaine-menthoL (CHLORASEPTIC) 6-10 mg lozenge 1 lozenge 1 lozenge, Mucous Membrane, 3 times daily PRN, sore throat, Starting on 07/19/20 at 1704 Given 07/20/2020 8:07 AM EST 1 lozenge carBAMazepine (TEGRETOL) tablet 200 mg 200 mg, Oral, At Bedtime (2100), First dose on Mon07/14/20 at 2200 Given 07/19/2020 8:39 PM EST 200 mg Given 07/18/2020 9:05 PM EST 200 mg Given 07/17/2020 10:47 PM EST 200 mg cloNIDine HCL (CATAPRES) tablet 0.1 mg 0.1 mg, Oral, 2 times daily, First dose on Mon07/18/20 at 1330 Given 07/20/2020 8:07 AM EST 0.1 mg Given 07/19/2020 11:53 PM EST 0.1 mg Given 07/19/2020 9:29 AM EST 0.1 mg cycloSPORINE modified (NEORAL) capsule 100 mg 100 mg, Oral, 2 times daily, First dose on Mon07/14/20 at 2200, LEVEL 2 HAZARDOUS MEDICATION Given 07/20/2020 8:07 AM EST 100 mg Given 07/19/2020 8:38 PM EST 100 mg Given 07/19/2020 9:29 AM EST 100 mg dextrose 50 % in water (D50W) iv Syrg 25 mL 25 mL, Intravenous, Every 15 min PRN, for glucose < 70 and alert but can not be corrected, orally or via feeding tube, Starting on Mon07/14/20 at 2153, Recheck blood sugar in 15 minutes and repeat treatment if glucose still < 70. dextrose 50 % in water (D50W) iv Syrg 50 mL 50 mL, Intravenous, Every 15 min PRN, for glucose < 70 and not alert, Starting on Mon07/14/20 at 2153, Recheck glucose in 15 minutes and repeat treatment if glucose still < 70. dextrose 50 % in water (D50W) iv Syrg 50 mL 50 mL, Intravenous, Once, On Mon07/15/20 at 0030, For 1 dose, Administer with Insulin 5 units dose Given 07/15/2020 1:29 AM EST 50 mLs enoxaparin (LOVENOX) for prophylaxis syringe 30 mg/0.3 mL 30 mg, Subcutaneous, Daily, First dose on Mon07/15/20 at 0900 Given 07/15/2020 9:18 AM EST 30 mg Left Arm famotidine (PEPCID) tablet 20 mg 20 mg, Oral, Daily, First dose on Mon07/15/20 at 0900 Given 07/20/2020 8:06 AM EST 20 mg Given 07/19/2020 9:29 AM EST 20 mg Given 07/18/2020 8:41 AM EST 20 mg gabapentin (NEURONTIN) capsule 100 mg 100 mg, Oral, 2 times daily, First dose on Mon07/14/20 at 2200 Given 07/20/2020 8:07 AM EST 100 mg Given 07/19/2020 8:40 PM EST 100 mg Given 07/19/2020 9:29 AM EST 100 mg glucose chewable tablet 12 g 12 g, Oral, Every 15 min PRN, Low blood sugar, for glucose 50-70 mg/dL, Starting on Mon07/14/20 at 2153, Recheck glucose in 15 minutes and if glucose still < 70, repeat treatment. DO NOT ADMINISTER VIA FEEDING TUBE heparin (porcine) injection 5,000 Units 5,000 Units, Subcutaneous, Every 8 hours scheduled (3 times per day), First dose on Mon07/16/20 at 2100 Given 07/20/2020 4:32 AM EST 5,000 Units Abdominal Tissue Given 07/19/2020 8:37 PM EST 5,000 Units A bdominal Tissue Given 07/19/2020 1:17 PM EST 5,000 Units R ight Arm hydrALAZINE (APRESOLINE) tablet 100 mg 100 mg, Oral, Every 8 hours, First dose on Mon07/14/20 at 2200 Given 07/20/2020 4:25 PM EST 100 mg Given 07/20/2020 4:31 AM EST 100 mg Given 07/19/2020 9:04 PM EST 100 mg insulin lispro (humaLOG) injection 0-5 Units 0-5 Units, Subcutaneous, 3 times daily before meals, First dose on Mon07/15/20 at 0900, HIGH ALERT MEDICATION Given 07/19/2020 2:49 PM EST 1 Units Right Arm Given 07/16/2020 6:52 PM EST 1 Units Ri ght Arm Given 07/16/2020 9:40 AM EST 1 Units Ri ght Arm insulin regular (HumuLIN R) injection 5 Units 5 Units, Intravenous, Once, On Mon07/15/20 at 0030, For 1 dose, Administer with D50W 50 mL dose Given 07/15/2020 1:29 AM EST 5 Units lidocaine (LIDODERM) 5 % 1 patch 1 patch, Transdermal, Every 24 hours, First dose on [facility] 07/18/20 at 1930, LEAVE PATCH ON FOR 12 HOURS,THEN REMOVE FOR 12 HOURS. Patch Applied 07/19/2020 8:36 PM EST 1 patch Other Patch Applied 07/18/2020 7:52 PM EST 1 patch Other melatonin Tab 6 mg 6 mg, Oral, At Bedtime (2100), First dose on Mon07/14/20 at 2200 Given 07/19/2020 8:38 PM EST 6 mg Given 07/18/2020 9:06 PM EST 6 mg Given 07/17/2020 9:47 PM EST 6 mg methocarbamoL (ROBAXIN) tablet 500 mg 500 mg, Oral, 4 times daily before meals & nightly, First dose on Mon07/14/20 at 2200 Given 07/20/2020 5:15 PM EST 5 00 mg Given 07/20/2020 11:23 AM EST 500 mg Given 07/20/2020 8:06 AM EST 500 mg metoprolol tartrate (LOPRESSOR) tablet 25 mg 25 mg, Oral, 2 times daily, First dose on Mon07/14/20 at 2200 Given 07/16/2020 9:39 AM EST 25 mg Given 07/15/2020 11:16 PM EST 25 mg Given 07/15/2020 9:17 AM EST 25 mg metoprolol tartrate (LOPRESSOR) tablet 50 mg 50 mg, Oral, 2 times daily, First dose (after last modification) on Mon07/16/20 at 2100 Given 07/20/2020 8:07 AM EST 50 mg Given 07/19/2020 9:05 PM EST 50 mg Given 07/19/2020 9:30 AM EST 50 mg NIFEdipine (PROCARDIA-XL) 24 hr tablet 90 mg 90 mg, Oral, 2 times daily, First dose on Mon07/14/20 at 2200, DO NOT CRUSH Given 07/20/2020 8:06 AM EST 90 mg Given 07/19/2020 11:54 PM EST 90 mg Given 07/19/2020 9:29 AM EST 90 mg ondansetron (ZOFRAN) injection 4 mg 4 mg, Intravenous, Every 6 hours PRN, Nausea and/or Vomiting, Starting on Bobbi 07/16/20 at 1057 Given 07/16/2020 10:54 PM EST 4 mg Given 07/16/2020 11:14 AM EST 4 mg oxyCODONE (ROXICODONE) immediate release tablet 5 mg 5 mg, Oral, Every 4 hours PRN, severe pain (NRS 7-10), Starting on Mon07/14/20 at 2212 Given 07/20/2020 11:23 AM EST 5 mg Given 07/20/2020 8:07 AM EST 5 mg Given 07/20/2020 4:31 AM EST 5 mg oxyCODONE (ROXICODONE) immediate release tablet 5 mg 5 mg, Oral, Once, On Mon07/17/20 at 1900, For 1 dose Given 07/17/2020 6:59 PM EST 5 mg polyethylene glycol (MIRALAX) packet 17 g 17 g, Oral, Daily as needed, mild constipation (no BM for 24 hrs), Starting on Mon07/14/20 at 2149 Given 07/15/2020 11:15 PM EST 17 g proCHLORPERazine (COMPAZINE) injection Soln 10 mg 10 mg, Intravenous, Once, On Mon07/15/20 at 2300, For 1 dose Given 07/15/2020 10:52 PM EST 10 mg quetiapine (SEROQUEL) half tablet 12.5 mg 12.5 mg, Oral, At Bedtime (2100), First dose on Mon07/14/20 at 2200, PRECUT BY PHARMACY Given 07/19/2020 8:38 PM EST 12.5 mg Given 07/18/2020 9:05 PM EST 12.5 mg Given 07/17/2020 10:47 PM EST 12.5 mg sodium chloride 0.9 % infusion 20 mL/hr, Intravenous, Continuous, Starting on Mon07/16/20 at 1530, For 12 hours, Normal Saline 0.9% run at O only during administration of blood products. New Bag 07/16/2020 8:31 PM EST 20 mL/h r 20 mL/hr sodium chloride flush 10 mL 10 mL, Intravenous, Every Shift, First dose on Mon07/14/20 at 2130 Given 07/20/2020 4:32 AM EST 10 mLs Given 07/19/2020 8:37 PM EST 10 mLs Given 07/19/2020 6:28 AM EST 10 mLs terazosin (HYTRIN) capsule 10 mg 10 mg, Oral, At Bedtime (2100), First dose on Mon07/15/20 at 2100, Therapeutic Interchange: doxazosin ER (CARDURA XL) 8 mg daily = terazosin (HYTRIN) 10 mg daily Given 07/19/2020 9:05 PM EST 10 mg Given 07/18/2020 9:05 PM EST 10 mg Given 07/17/2020 10:47 PM EST 10 mg vancomycin (VANCOCIN) 1,000 mg in sodium chloride 0.9% 250 mL ADDaptor IVPB 1,000 mg, Intravenous, Administer over 60 Minutes, Once, Use ADDaptor product - Mix Thoroughly Before Administration, Indication? Infection-Documented, Site of diagnosed infections (select all that apply): Musculoskeletal, Type of Therapy: Modification of Therapy New Bag 07/15/2020 1:48 AM EST 1,000 mg 250 mL/hr vancomycin (VANCOCIN) 1,000 mg in sodium chloride 0.9% 250 mL ADDaptor IVPB 1,000 mg, Intravenous, Administer over 60 Minutes, Once, Contact pharmacy if there is a question/concern of whether vancomycin should be given based on serum drug levels. Use ADDaptor product - Mix Thoroughly Before Administration, Indication? Infection-Suspected, Site of diagnosed infections (select all that apply): Other New Bag 07/16/2020 4:04 PM EST 1,000 mg 250 mL/hr vancomycin (VANCOCIN) 1,000 mg in sodium chloride 0.9% 250 mL ADDaptor IVPB 1,000 mg, Intravenous, Administer over 60 Minutes, Once, Contact pharmacy if there is a question/concern of whether vancomycin should be given based on serum drug levels. Use ADDaptor product - Mix Thoroughly Before Administration, Indication? Infection-Suspected, Site of diagnosed infections (select all that apply): Musculoskeletal New Bag 07/17/2020 2:38 PM EST 1,000 mg 25 0 mL/hr vancomycin intermittent/pulse dosing PLACEHOLDER ORDER Intravenous, Use as directed PRN, receiving intermittent/pulse dosing vancomycin, Starting on Mon07/14/20 at 2303, Patient is receiving intermittent/pulse vancomycin dosing based on random serum levels. NOTE:This is NOT an active medication order. If a dose of vancomycin is needed, it must be entered as a one-time dose by physicians or pharmacists. wound dressings (TRIAD (Zinc Oxide 20%)) topical paste Topical, As needed, Wound Care, Starting on Mon07/18/20 at 1934, Apply to: Other, Other Site: wound site documented in this encounter Active and Recently Administered Medications Times are shown in EST. Scheduled Medication Order 07/18/2020 07/19/2020 07/20/2020 aspirin chewable tablet 81 mg 81 mg, Oral, Daily with breakfast, First dose on Mon07/15/20 at 0800 0841 (Given - Provider: Erika Pitts RN) 0929 (Given - Provider: Erika Pitts RN) 0805 (Given - Provider: Roxi Julio, RN) carBAMazepine (TEGRETOL) tablet 200 mg 200 mg, Oral, At Bedtime (2100), First dose on Mon07/14/20 at 2200 2105 (Given - Provider: Urmila Pham RN) 2038 (Given - Provider: Roxi Gurrola, JANA) cloNIDine HCL (CATAPRES) tablet 0.1 mg 0.1 mg, Oral, 2 times daily, First dose on Mon07/18/20 at 1330 1549 (Given - Provider: Erika Pitts RN)2313 (Given - Provider: Roxi Gurrola RN) 0929 (Given - Provider: Erika Pitts RN)2353 (Given - Provider: Roxi Gurrola, JANA) 0807 (Given - Provider: Roxi Julio, RN) cycloSPORINE modified (NEORAL) capsule 100 mg 100 mg, Oral, 2 times daily, First dose on Mon07/14/20 at 2200, LEVEL 2 HAZARDOUS MEDICATION 0840 (Given - Provider: Erika Pitts RN)2106 (Given - Provider: Urmila Pham RN) 0929 (Given - Provider: Erika Pitts RN)203 (Given - Provider: Roxi Gurrola RN) 0807 (Given - Provider: Roxi Julio RN) entecavir (BARACLUDE) tablet 0.5 mg 0.5 mg, Oral, Every 7 days, First dose on Mon07/14/20 at 2200, ADMINISTER ON EMPTY STOMACH (2 HOURS BEFORE OR AFTER MEALS). LEVEL 2 HAZARDOUS MEDICATION famotidine (PEPCID) tablet 20 mg 20 mg, Oral, Daily, First dose on Mon07/15/20 at 0900 0841 (Given - Provider: Erika Pitts RN) 0929 (Given - Provider: Erika Pitts RN) 08 (Given - Provider: Roxi Julio RN) gabapentin (NEURONTIN) capsule 100 mg 100 mg, Oral, 2 times daily, First dose on Mon07/14/20 at 2200 0841 (Given - Provider: Erika Pitts RN)2106 (Given - Provider: Urmila Pham RN) 0929 (Given - Provider: Erika Pitts RN)204 (Given - Provider: Roxi Gurrola RN) 08 (Given - Provider: Roxi Julio RN) heparin (porcine) injection 5,000 Units 5,000 Units, Subcutaneous, Every 8 hours scheduled (3 times per day), First dose on Mon07/16/20 at 2100 0656 (Given - Provider: Du Purvis RN)1549 (Given - Provider: Erika iPtts RN)210 (Given - Provider: Urmila Pham RN) 0628 (Given - Provider: Roxi Gurrola RN)1317 (Given - Provider: Erika Pitts RN)203 (Given - Provider: Roxi Gurrola RN) 0432 (Given - Provider: Roxi Gurrola RN)1527 (Not Given - Provider: Roxi Julio RN - Reason: Patient not available) hydrALAZINE (APRESOLINE) tablet 100 mg 100 mg, Oral, Every 8 hours, First dose on Mon07/14/20 at 2200 0656 (Given - Provider: Du Purvis RN)1549 (Given - Provider: Erika Pitts RN)2313 (Given - Provider: Roxi Gurrola RN) 0628 (Given - Provider: Roxi Gurrola RN)1317 (Given - Provider: Erika Pitts RN)210 (Given - Provider: Roxi Gurrola RN) 0431 (Given - Provider: Roxi Gurrola RN)1625 (Given - Provider: Zeny Hernandez RN) insulin lispro (humaLOG) injection 0-5 Units 0-5 Units, Subcutaneous, 3 times daily before meals, First dose on Mon07/15/20 at 0900, HIGH ALERT MEDICATION 0843 (Not Given - Provider: Erika Pitts RN - Reason: Order parameters not met)1230 (Not Given - Provider: Erika Pitts RN - Reason: Order parameters not met)1827 (Not Given - Provider: Erika Pitts RN - Reason: Order parameters not met) 0949 (Not Given - Provider: Erika Pitts RN - Reason: Order parameters not met)1449 (Given - Provider: Merle Bullock RN)1847 (Not Given - Provider: Erika Pitts RN - Reason: Order parameters not met) 0809 (Not Given - Provider: Roxi Julio RN - Reason: Contraindicated)1246 (Not Given - Provider: Roxi Julio RN - Reason: Order parameters not met)1800 (Due) lidocaine (LIDODERM) 5 % 1 patch 1 patch, Transdermal, Every 24 hours, First dose on Mon07/18/20 at 1930, LEAVE PATCH ON FOR 12 HOURS,THEN REMOVE FOR 12 HOURS. 1951 (Patch Applied - Provider: Erika Pitts RN) 0752 (Due: Patch Removed - Provider: Erika Pitts RN)2035 (Patch Applied - Provider: Roxi Gurrola RN - Comment: back) 1114 (Patch Removed - Provider: Roxi Julio RN) melatonin Tab 6 mg 6 mg, Oral, At Bedtime (2100), First dose on Mon07/14/20 at 2200 2106 (Given - Provider: Urmila Pham RN) 2037 (Given - Provider: Roxi Gurrola RN) methocarbamoL (ROBAXIN) tablet 500 mg 500 mg, Oral, 4 times daily before meals & nightly, First dose on Mon07/14/20 at 2200 0840 (Given - Provider: Erika Pitts RN)1233 (Given - Provider: Erika Pitts RN)1827 (Given - Provider: Erika Pitts RN)2316 (Given - Provider: Roxi Gurrola RN) 0930 (Given - Provider: Erika Pitts RN)1317 (Given - Provider: Erika Pitts RN)1543 (Given - Provider: Erika Pitts RN)2353 (Given - Provider: Roxi Gurrola RN) 0806 (Given - Provider: Roxi Julio RN)1123 (Given - Provider: Roxi Julio RN)1715 (Given - Provider: Roxi Julio RN) metoprolol tartrate (LOPRESSOR) tablet 50 mg 50 mg, Oral, 2 times daily, First dose (after last modification) on Mon07/16/20 at 2100 0841 (Given - Provider: Erika Pitts RN)2106 (Given - Provider: Urmila Pham RN) 0930 (Given - Provider: Erika Pitts RN)210 (Given - Provider: Roxi Gurrola RN) 0807 (Given - Provider: Roxi Julio RN) NIFEdipine (PROCARDIA-XL) 24 hr tablet 90 mg 90 mg, Oral, 2 times daily, First dose on Mon07/14/20 at 2200, DO NOT CRUSH 0841 (Given - Provider: Erika Pitts RN)210 (Given - Provider: Urmila Pham RN) 0929 (Given - Provider: Erika Pitts RN)2354 (Given - Provider: Roxi Gurrola RN) 0806 (Given - Provider: Roxi Julio RN) quetiapine (SEROQUEL) half tablet 12.5 mg 12.5 mg, Oral, At Bedtime (2100), First dose on Mon07/14/20 at 2200, PRECUT BY PHARMACY 2104 (Given - Provider: Urmila Pham RN) 203 (Given - Provider: Roxi Gurrola RN) sodium chloride flush 10 mL(Linked Group 1) 10 mL, Intravenous, Every Shift, First dose on Mon07/14/20 at 2130 0500 (Due)1827 (Given - Provider: Erika Pitts RN)2316 (Given - Provider: Roxi Gurrola RN) 0628 (Given - Provider: Roxi Gurrola RN)1315 (Not Given - Provider: Erika Pitts RN - Reason: Loss of IV access)2036 (Given - Provider: Roxi Gurrola RN) 0432 (Given - Provider: Roxi Gurrola RN)1527 (Not Given - Provider: Roxi Julio RN - Reason: Patient not available) terazosin (HYTRIN) capsule 10 mg 10 mg, Oral, At Bedtime (2100), First dose on Mon07/15/20 at 2100, Therapeutic Interchange: doxazosin ER (CARDURA XL) 8 mg daily = terazosin (HYTRIN) 10 mg daily 2104 (Given - Provider: Urmila Pham RN) 2104 (Given - Provider: Roxi Gurrola RN) PRN Medication Order 07/18/2020 07/19/2020 07/20/2020 acetaminophen (TYLENOL) tablet 650 mg 650 mg, Oral, Every 4 hours PRN, Pain Score (NRS) =, Fever, temp greater than 101 F or pain score NRS 1 - 10; use prior to opioids if opiods are also ordered, then reassess pain score within 90 minutes, Starting on Mon07/14/20 at 2100, Maximum dose of acetaminophen is 4000 mg (4 grams) from all sources in 24 hours. 1010 (Given - Provider: Erika Pitts RN) 1123 (Given - Provider: Roxi Julio RN) benzocaine-menthoL (CHLORASEPTIC) 6-10 mg lozenge 1 lozenge 1 lozenge, Mucous Membrane, 3 times daily PRN, sore throat, Starting on Mon07/19/20 at 1704 0807 (Given - Provider: Roxi Julio RN) dextrose 50 % in water (D50W) iv Syrg 25 mL(Linked Group 2) 25 mL, Intravenous, Every 15 min PRN, for glucose < 70 and alert but can not be corrected, orally or via feeding tube, Starting on Mon07/14/20 at 2153, Recheck blood sugar in 15 minutes and repeat treatment if glucose still < 70. dextrose 50 % in water (D50W) iv Syrg 50 mL(Linked Group 2) 50 mL, Intravenous, Every 15 min PRN, for glucose < 70 and not alert, Starting on Mon07/14/20 at 2153, Recheck glucose in 15 minutes and repeat treatment if glucose still < 70. glucose chewable tablet 12 g 12 g, Oral, Every 15 min PRN, Low blood sugar, for glucose 50-70 mg/dL, Starting on Mon07/14/20 at 2153, Recheck glucose in 15 minutes and if glucose still < 70, repeat treatment. DO NOT ADMINISTER VIA FEEDING TUBE ondansetron (ZOFRAN) injection 4 mg 4 mg, Intravenous, Every 6 hours PRN, Nausea and/or Vomiting, Starting on Mon07/16/20 at 1057 oxyCODONE (ROXICODONE) immediate release tablet 5 mg (CANCELED) 5 mg, Oral, Every 4 hours PRN, severe pain (NRS 7-10), Starting on Mon07/14/20 at 2212 0206 (Given - Provider: Du Purvis RN)0841 (Given - Provider: Erika Pitts RN)1549 (Given - Provider: Erika Pitts RN)2112 (Given - Provider: Urmila Pham RN) 1317 (Given - Provider: Erika Pitts, JANA)1755 (Given - Provider: Erika Pitts, JANA)2353 (Given - Provider: Roxi Gurrola RN) 0431 (Given - Provider: Roxi Gurrola RN)0807 (Given - Provider: Roxi Julio, RN)1123 (Given - Provider: Roxi Julio RN) polyethylene glycol (MIRALAX) packet 17 g 17 g, Oral, Daily as needed, mild constipation (no BM for 24 hrs), Starting on Mon07/14/20 at 2149 vancomycin intermittent/pulse dosing PLACEHOLDER ORDER Intravenous, Use as directed PRN, receiving intermittent/pulse dosing vancomycin, Starting on Mon07/14/20 at 2303, Patient is receiving intermittent/pulse vancomycin dosing based on random serum levels. NOTE:This is NOT an active medication order. If a dose of vancomycin is needed, it must be entered as a one-time dose by physicians or pharmacists. wound dressings (TRIAD (Zinc Oxide 20%)) topical paste Topical, As needed, Wound Care, Starting on 07/18/20 at 1934, Apply to: Other, Other Site: wound site No Frequency Medication Order 07/18/2020 07/19/2020 07/20/2020 lidocaine (PF) 2% (20 mg/mL) 20 mg/mL (2 %) Soln Starting on 07/20/20 at 1200, For 1 dose, Created by cabinet override 1230 (Due) Linked Groups Order Group 1: Place saline lock (CANCELED) STAT, Once, On Mon07/14/20 at 2031, For 1 occurrence And sodium chloride flush 10 mLJump to med 10 mL, Intravenous, Every Shift, First dose on Mon07/14/20 at 2130 Group 2: dextrose 50 % in water (D50W) iv Syrg 25 mLJump to med 25 mL, Intravenous, Every 15 min PRN, for glucose < 70 and alert but can not be corrected, orally or via feeding tube, Starting on Mon07/14/20 at 2153, Recheck blood sugar in 15 minutes and repeat treatment if glucose still < 70. Or dextrose 50 % in water (D50W) iv Syrg 50 mLJump to med 50 mL, Intravenous, Every 15 min PRN, for glucose < 70 and not alert, Starting on Mon07/14/20 at 2153, Recheck glucose in 15 minutes and repeat treatment if glucose still < 70. documented in this encounter Additional Health Concerns Infection Onset Date Last Indicated Resolved Time Rule Out COVID-19 07/14/2020 07/14/2020 07/15/2020 12:52 PM EST Assessment Noted Time PHQ-9 Depression Total Score: 0 12/06/19 18 3:00 PM EDT documented as of this encounter Care Teams Amortization Schedule Clerk Relationship Specialty Start Date End Date Edgar Fournier MD [address] [place] [address] [place] [phone] PCP - General 08/18/17 06/23/21 Maile Valles, RN Txp Post Coordinator Transplant Hepatology 11/07/17 Jack Ordoñez MD [facility] [place] [address] Consulting Physician Transplant Hepatology 01/05/18 Estephania Sharif, DarrianD Pharmacist Pharmacist 11/11/19 documented as of this encounter
--- OUTSIDE RECORDS SUMMARY | 2024-07-12 12:38 | XMS_ITS | Encounter Summary ---
Author Organization [facility] Address [address] [place] [address] Care Team Providers Care Clinician Oncology Name Role Phone Edgar Fournier MD Primary Care Provider [phone] Maile Valles RN Unavailable Unavail able Jack Ordoñez MD Unavailable [phone] Estephania Sharif PharmD Unavailable Christine vailable [...] release of HIV test results or diagnoses. [id number] Health Encounter Details Date Type Department Care Team (Late st Contact Info) Description 07/02/2020 Telephone [facility] Liver Transplant at [place] [id number] [facility] [address] [place] [phone] Anne Whitt MA Social History Tobacco [...] Telephone Encounter - Maile Valles RN - 07/06/2020 8:11 AM EST Received Hep B surface Ag results. Positive as expected. No HBV quant PCR results. Patient to continue on entecavir as prescribed. * Telephone Encounter - Anne Whitt MA - 07/03/2020 9:21 AM EST LM for catering service manager asking that the HBV results be faxed to txp team. * Telephone Encounter - Maile Valles RN - 07/03/2020 7:37 AM EST Unclear what hepatitis B labs catering service manager referring to. Txp REBEKAH to obtain lab results. Hep B surfaceAntibody and Hep B surface Ag will continue to be positive. Last HBV quant on 05/29 resulted at < 20. Txp MA to arrange for telehealth Liver Txp appt. ID aware of issues regarding IV abx and compliance. * Telephone Encounter - Anne Whitt MA - 07/02/2020 11:41 AM EST vocational aide called to say pt tested positive for hep B 06/26. Pt says he is still taking the entecavir and has not missed a dose. Pt was hospitalized in [place] at [facility] 04/28 - 05/13 and states he started testing positive after that hospitalization. Was supposed to see txp in Apr but looks like he was hospitalized at outside facility. Not sure ifmaybe a telehealth appt would be appropriate for him at this point. RN states pt unable to ambulate. Pt has osteomyelitis in back. Pt was refusing PT during outside admission as well as UC admission. RN states pt not getting antibiotics at this time because was set up through [facility] and pt does not have PICC line. documented in this encounter Plan of Treatment Upcoming Encounters Date Type Department Care Team (Late st Contact Info) Description 07/15/2024 9:00 AM EST Hospital Encounter [facility] Interventional Radiology [address] [place] [phone] Herve Carrillo MD [address] [facility] [address] [facility] [place] [phone] documented as of this encounter Visit Diagnoses Not on filedocumented in this encounter Additional Health Concerns Assessment Noted Time PHQ-9 Depression Total Score: 0 12/06/19 18 3:00 PM EDT documented as of this encounter Care Teams Clinician Oncology Relationship Specialty Start Date End Date Edgar Fournier MD [address] [place] [address] [place] [address] PCP - General 08/18/17 06/23/21 Maile Valles, JANA Txp Post Coordinator Transplant Hepatology 11/07/17 Jack Ordoñez MD [address] [place] [phone] Consulting Physician Transplant Hepatology 01/05/18 Estephania Sharif, DarrianD Pharmacist Pharmacist 11/11/19 documented as of this encounter
--- OUTSIDE RECORDS SUMMARY | 2024-07-12 12:38 | XMS_ITS | Encounter Summary ---
Author Organization [facility] Address [address] [place] [address] Care Team Providers Care Machine Spreader Name Role Phone Edgar Fournier MD Primary Care Provider [phone] Maile Valles RN Unavailable Unavail able Jack Ordoñez MD Unavailable [phone] Estephania Sharif PharmD Unavailable Christine vailable [...] release of HIV test results or diagnoses. [id number] Health Encounter Details Date Type Department Care Team (Late st Contact Info) Description 07/10/2020 Telephone [facility] Liver Transplant at [place] [id number] [facility] [address] [place] [phone] Anne Whitt MA Social History Tobacco [...] Telephone Encounter - Anne Whitt MA - 07/10/2020 4:21 PM EST Spoke with pt to relay that linezolid would be fine for him to take. * Telephone Encounter - Anne Whitt MA - 07/10/2020 4:03 PM EST Pt called to say that kidney doc [place] has prescribed him linezolid 600 mg bid. Pt wants to check with txp team to make sure it is ok to take this med. documented in this encounter Plan of Treatment Upcoming Encounters Date Type Department Care Team (Late st Contact Info) Description 07/15/2024 9:00 AM EST Hospital Encounter [facility] Interventional Radiology [address] [place] [phone] Herve Carrillo MD [address] [facility] [address] [place] [phone] documented as of this encounter Visit Diagnoses Not on filedocumented in this encounter Additional Health Concerns Assessment Noted Time PHQ-9 Depression Total Score: 0 12/06/19 18 3:00 PM EDT documented as of this encounter Care Teams Machine Spreader Relationship Specialty Start Date End Date Edgar Fournier MD [address] [place] [address] [place] [address] PCP - General 08/18/17 06/23/21 Maile Valles, JANA Txp Post Coordinator Transplant Hepatology 11/07/17 Jack Ordoñez MD [address] [place] [phone] Consulting Physician Transplant Hepatology 01/05/18 Estephania Sharif, DarrianD Pharmacist Pharmacist 11/11/19 documented as of this encounter
--- OUTSIDE RECORDS SUMMARY | 2024-07-12 12:39 | XMS_ITS | Encounter Summary ---
Author Organization [facility] Address [address] [place] [address] Care Team Providers Care Clay Pigeon Setter Name Role Phone Edgar Fournier MD Primary Care Provider [phone] Maile Valles RN Unavailable Unavail able Jack Odroñez MD Unavailable [phone] Estephania Sharif PharmD Unavailable Christine vailable [...] release of HIV test results or diagnoses. [id number] Reason for Visit * Auth/Cert Specialty Diagnoses / Procedures Referred By Declan t Referred To Contact Diagnoses osteomyelitis 05/28/2020 [facility] CENTRAL SCHEDULING [address] [place] [address] Phone: tel: Referral ID Status Reason Start Date Expiration Date Visits Re quested Visits Authorized [id number] 1 1 Encounter Details Date Type Department Care Team (Late st Contact Info) Description 06/08/2020 6:56 PM EDT - 06/25/2020 2:02 PM EST Hospital Encounter [facility]--[address] [place] [address] Jake Zavala MD [address] [place] [address] Yessy Molina MD [address] [place] [address] Ryan Soriano MD [address] [place] [address] Other osteonecrosis, left femur (CMS-HCC) (Primary Dx); ESRD (end stage renal disease) (CMS-HCC); Essential (primary) hypertension; Epidural abscess; Esophageal candidiasis (CMS-HCC); Hepatitis B infection without delta agent without hepatic coma, unspecified chronicity; Anemia, unspecified type; Immunosuppression (CMS-HCC); S/P liver transplant (CMS-HCC); Hyperglycemia; Anxiety Discharge Disposition: Home WITH Home Health Care [...] Sign Reading Time Taken Comments Blood Pressure 139/73 06/25/2020 5:00 AM EST Pulse 100 06/25/2020 8:38 AM EST Temperature 37 ??C (98.6 ??F) 06/25/2020 5:00 AM EST Respiratory Rate 18 06/25/2020 8:38 AM EST Oxygen Saturation 97% 06/25/2020 8:38 AM EST Inhaled Oxygen Concentration 97% 06/25/2020 8 :38 AM EST Weight 138.8 kg (306 lb) 06/22/2020 7:00 AM EST Height 170.2 cm (5' 7 ) 06/08/2020 7:00 PM EDT Body Mass Index 47.93 06/08/2020 7:00 PM EDT documented in this encounter Discharge Summaries * Jake Zavala MD - 06/25/2020 10:09 AM EST [facility] Inpatient Discharge Summary Patient: Aiden Stauffer Jr. CSN: [id number] Date of Admission: 06/08/2020 Date of Discharge: 06/25/2020 Attending Physician: Jake Zavala MD Diagnoses Present on Admission Past Medical [...] ??? Osteomyelitis (CMS Dx) [M86.9] 05/28/2020 ??? Hepatitis B carrier (CMS Dx) [B18.1] 06/14/2020 ??? Right hip pain [M25.551] 06/13/2020 ??? Anxiety [F41.9] 06/09/2020 ??? Obstructive sleep apnea [G47.33] 06/08/2020 ??? Essential (primary) hypertension [I10] 11/12/2019 ??? Type 2 diabetes mellitus with diabetic chronic kidney disease (CMS Dx) [E11.22] 11/12/2019 ??? Anemia, unspecified [D64.9] 11/12/2019 ??? Prophylaxis for cytomegalovirus [B25.9] 07/29/2019 ??? ESRD (end stage renal disease) (CMS Dx) [N18.6] 09/13/2018 ??? 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 Dialysis AV fistula malfunction (CMS Dx) [T82.590A] 06/18/2020 06/22/2020 ??? Esophageal candidiasis (CMS Dx) [B37.81] 06/08/2020 06/22/2020 ??? 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] 04/28/2020 06/09/2020 Operations/Procedures Performed (include dates) Surgeries: None Lines/Drains/Airways: Patient Lines/Drains/Airways Status Active Line / PIV Line Name: Placement date: Placement time: Site: Days: Hemodialysis Access Arteriovenous Fistula Left Forearm -- -- Forearm NHSN Device Days (05/26/2020 to 06/24/2020) Central line: 12 Urinary catheter: 0 Notable Imaging Studies: X-ray Hip Right 2-3 Vws Incl Ap Pelvis, 06/13/2020 Hip joint spaces are preserved. No acute fracture or malalignment is identified. IMPRESSION: No acute osseous findings. Other Procedures: None Consulting Services (include reason) Nephrology (Dialysis) Allergies Codeine Sulfate Codeine Discharge Medications Medication List TAKE these medications, which are NEW Quantity/Refills melatonin 3 mg Tab Take 2 tablets (6 mg total) by mouth at bedtime. Quantity: 30 tablet Refills: 0 pantoprazole 40 MG tablet Commonly known as: PROTONIX Take 1 tablet (40 mg total) by mouth daily. Quantity: 30 tablet Refills: 0 QUEtiapine 25 MG tablet Commonly known as: SEROQUEL Take 0.5 tablets (12.5 mg total) by mouth at bedtime. Quantity: 15 tablet Refills: 0 vancomycin IVPB (Outpatient / Ambulatory) Commonly known as: VANCOCIN 1000 mg with dialysis. Replaces: vancomycin 750 mg Solr Refills: 0 TAKE these medication, which have CHANGED Quantity/Refills cycloSPORINE modified 100 MG capsule Commonly known as: NEORAL Take 1 capsule (100 mg total) by mouth 2 times a day. What changed: ?? medication strength ?? how much to take Quantity: 60 capsule Refills: 0 gabapentin 100 MG capsule Commonly known as: NEURONTIN Take 1 capsule (100 mg total) by mouth 2 times a day. What changed: ?? how much to take ?? when to take this Quantity: 90 capsule Refills: 0 HumuLIN N NPH Insulin KwikPen 100 unit/mL (3 mL) Inpn Generic drug: insulin NPH isoph U-100 human Inject subcutaneously 12 units in the AM and 6 units in the PM. What changed: additional instructions Quantity: 15 mL Refills: 5 hydrALAZINE 100 MG tablet Commonly known as: APRESOLINE Take 1 tablet (100 mg total) by mouth every 8 hours. What changed: ?? how much to take ?? how to take this ?? when to take this Quantity: 120 tablet Refills: 0 methocarbamoL 500 MG tablet Commonly known as: ROBAXIN Take 1 tablet (500 mg total) by mouth 4 times daily before meals and at bedtime. What changed: See the new instructions. Quantity: 120 tablet Refills: 0 metoprolol tartrate 25 MG tablet Commonly known as: LOPRESSOR Take 1 tablet (25 mg total) by mouth 2 times a day. What changed: ?? medication strength ?? how much to take ?? when to take this Quantity: 60 tablet Refills: 0 oxyCODONE 5 MG immediate release tablet Commonly known as: ROXICODONE Take 1 tablet (5 mg total) by mouth every 4 hours as needed for up to 5 days. What changed: when to take this Quantity: 20 tablet Refills: 0 polyethylene glycol 17 gram packet Commonly known as: MIRALAX Take 17 g by mouth daily as needed (mild constipation (no BM for 24 hrs)). What changed: ?? when to take this ?? reasons to take this Quantity: 14 packet Refills: 0 TAKE these medications, which you were ALREADY TAKING Quantity/Refills ALPRAZolam 0.5 MG tablet Commonly known as: XANAX Take 1 tablet (0.5 mg total) by mouth 3 times a day as needed for up to 5 days. Quantity: 15 tablet Refills: 0 aspirin 81 MG chewable tablet Chew 1 tablet (81 mg total) by mouth daily with breakfast. Quantity: 30 tablet Refills: 5 blood sugar diagnostic Strp Use to test blood sugar up to 4 times a day. Diagnosis for use: E 9.65. For use with One Touch Verio meters. Quantity: 150 strip Refills: 5 blood-glucose meter [facility] Commonly known as: OneTouch Verio Meter Use as instructed. Quantity: 1 each Refills: 0 carBAMazepine 200 mg tablet Commonly known as: TEGRETOL Take 200 mg by mouth at bedtime. Refills: 0 doxazosin 8 MG tablet Commonly known as: CARDURA 8 mg at bedtime. Refills: 0 entecavir 0.5 MG tablet Commonly known as: BARACLUDE Take 1 tablet (0.5 mg total) by mouth every 7 days. Quantity: 4 tablet Refills: 5 famotidine 20 MG tablet Commonly known as: PEPCID Take 20 mg by mouth daily. Refills: 0 fluticasone propionate 50 mcg/actuation nasal spray Commonly known as: FLONASE Use into each nostril. Refills: 0 lancets 33 gauge Misc Commonly known as: OneTouch Delica Lancets Use 1 strip as directed 4 times daily before meals and at bedtime. Quantity: 150 each Refills: 5 lidocaine-prilocaine cream Commonly known as: EMLA Apply topically. Refills: 0 NIFEdipine 90 MG (OSM) 24 hr tablet Commonly known as: PROCARDIA-XL Take 90 mg by mouth 2 times a day. Refills: 0 ondansetron 4 MG disintegrating tablet Commonly known as: ZOFRAN-ODT every 8 hours as needed. Refills: 0 pen needle, diabetic 32 gauge x 5/32 Ndle Use as directed to inject insulin 4 times daily. Quantity: 150 each Refills: 5 Vitamin D2 1,250 mcg (50,000 unit) capsule Generic drug: ergocalciferol Take 50,000 Units by mouth every Monday, , and Monday. Twice a week Refills: 0 STOP taking these medications cyclobenzaprine 10 MG tablet Commonly known as: FLEXERIL lisinopriL 40 MG tablet Commonly known as: PRINIVIL vancomycin 750 mg Solr Commonly known as: VANCOCIN Replaced by: vancomycin IVPB (Outpatient / Ambulatory) Reason for Admission Aiden Stauffer Jr. is a 45 y.o. 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 The patient was admitted to [facility] Post Acute Care for rehabilitation following osteomyelitis/epidural abscess. Hospital Course By Problem Osteomyelitis. The patient was treated with vancomycin, which was to continue until 07/23/2020. He had significant hip pain resulting from the epidural abscess, which limited his ability to participate in therapy. He was prescribed oxycodone for pain control. Gabapentin was decreased to 100 mg for renal dosing (dialysis). Despite minimal progress with therapy, Mr. Stauffer [...] stand and walk at least a few fe et. The patient did not agree, and remained adamant that he be discharged. I clearly explained the risks to him, and informed him that if he wanted to be discharged, it would be most assuredly against medical advice. He understood this, and wanted to be discharge anyway. Arrangements were made for home infusion for the remaining doses of vancomycin. End-stage liver disease, on dialysis. The patient tolerated dialysis well. He normally dialyzes at home. Diabetes mellitus. Glucose was well controlled. He was on 70/30 insulin prior to admission. While admitted he was on lispro/glargine. At discharge he elected to return to 70/30. Adjusted to 12 units QAM and 6 units QPM. Condition on Discharge 1. Functional Status: Abnormal - Description: unable to transfer 2. Mental Status: Normal 3. Diet / Tube Feeding / TPN: Diet Orders Diet renal starting at 06/18 1442 Regular Diet 4. Respiratory / Lines & Tubes / Wounds: None required 5. Discharge Physical Exam: BP 139/73 (BP Location: Left arm, Patient Position: Lying) Pulse 100 Temp 98.6 ??F (37 ??C) (Oral) Resp 18 Ht 5' 7 (1.702 m) Wt (!) 306 lb (138.8 kg) SpO2 97% BMI 47.93 kg/m?? Physical Exam Vitals signs and nursing note reviewed. Constitutional: General: He is not in acute distress. Appearance: He is well-developed. He is obese. HENT: Head: Normocephalic and atraumatic. Mouth/Throat: Pharynx: No oropharyngeal exudate. Eyes: General: No scleral icterus. Conjunctiva/sclera: Conjunctivae normal. Cardiovascular: Rate and Rhythm: Normal rate and regular rhythm. Heart sounds: Normal heart sounds. No murmur. Pulmonary: Effort: Pulmonary effort is normal. No respiratory distress. Breath sounds: Normal breath sounds. No wheezing. Abdominal: General: Bowel sounds are normal. There is no distension. Palpations: Abdomen is soft. Tenderness: There is no abdominal tenderness. Skin: General: Skin is warm and dry. Findings: No erythema. Neurological: Mental Status: He is alert and oriented to person, place, and time. Psychiatric: Behavior: Behavior normal. Disposition Home with Home Health Follow-Up Appointments Future Appointments Date Time Provider Department Center 07/01/2020 2:30 PM Ravi Biswas MD [facility] Edgar Fournier MD [address] [place] [address] [place] [address] Go on 07/01/2020 For post hopsital discharge follow-up on 07/01/2020 at 11am. Please called Dr. Fournier's office directly at [phone] if you need to reschedule. Patient Instructions / Follow-Up Items for Receiving Physician Jake Zavala MD Attending Physician 06/25/2020 10:09 AM I spent more than 30 minutes on the day of discharge coordinating this patient's care, including discussing the treatment plan with the patient, answering his questions, and performing a physical exam. More than 50% of this time was spent [id number], the remainder was spent on the hospital floor preparing documentation. * Tashi Merino - 06/25/2020 9:31 AM EST [facility] Sizer Machine/Sprinkler Repair Technician Discharge Summary Patient name: Aiden Stauffer Jr. Patient : 1975 Age: 45 y.o. Gender: male Patient emergency contact: Extended Emergency Contact Information Primary Emergency Contact: EhKym Address: [facility] [place] [address] [facility] Mobile Relation: Spouse Secondary Emergency Contact: Kimberly Stauffer [facility] Relation: Mother Attending provider: Jake Zavala MD Primary care physician: Edgar Fournier MD The MD has indicated that the patient is ready for discharge. Aiden Stauffer . patient will be transported by family at 12pm Transfer Mode/Level of Care: Family The plan [...] Provider Preference Post-Discharge Goals Patient's Post-Discharge goals: To return home with family Post Acute Care Provider Information: Community Services at Discharge Community Services at Home post discharge: Home Health Care, DME, Infusion Home Health Care Name/Phone # post discharge: [facility] [phone] Home Health Services Types at Discharge: PT/OT/SUPERVISOR CHAR HOUSE, IV Therapy/ABX, Home Health Aide, Longterm Infusion Company Name/Phone # post discharge: [employer] [phone] DME Needs post discharge: [facility] DME Name/Phone # post discharge: [place] [phone] Pending Labs & Dialysis Information: Pending Lab Results None Dialysis Order (48h ago, onward) Ordered Start 06/24/20 1327 IP Hemodialysis orders/machine parameters - Q MON - MON - MON (Hemodialysis orders (single select)) Every Mon-Mon-Mon Comments: In an event of an interruption, due to the time required to safely flush the lines/strip and change the dialyzer/tubing to restart the therapy, modification of treatment duration within 15 minutes or less of the prescribed time due to technical or patient related reasons are deemed acceptable and is implied in this order set. Ordering Provider: Enrike Mccracken MD Question Answer Comment Diagnosis End stage renal disease Duration of treatment (hours) 4 Dialyzer Other (please specify) Elisio 19H BFR 350 mL/min DFR 700 mL/min Dialysate Temperature (C) 36 K+ Sliding Scale Potassium Ca++ 2.5 mEq Bicarb 35 mEq Na+ 140 mEq Dry Weight/Fluid Removal Goal (Liters) Net fluid removal 1L - 2.5L; Keep SBP >100 Access Site AVF Left Arm; 15G [place] Hepatitis B Surfaces Antigen (HBsAg) Resulted in Last 30 days? See Below Yes 06/26/20 0900 06/24/20 1327 Hemodialysis Treatment Modification Once Comments: Challenge for up to 3L Net today as tolerated. Ordering Provider: Enrike Mccracken MD Question Answer Comment PLEASE MODIFY HEMODIALYSIS THERAPY TIME COMPARED TO ORDERED TIME DUE TO: Medical Concern Medical Concern Other Labs (Please specify) Other Labs Edema 06/24/20 1327 06/24/20 0910 IP Hemodialysis orders/machine parameters - Q Mon [...] implied in this order set. Ordering Provider: Enrike Mccracken MD Question Answer Comment Diagnosis End stage renal disease Duration of treatment (hours) 4 Dialyzer Other (please specify) Elisio 19H BFR 350 mL/min DFR 700 mL/min Dialysate Temperature (C) 36 K+ Sliding Scale Potassium Ca++ 2.5 mEq Bicarb 35 mEq Na+ 140 mEq Dry Weight/Fluid Removal Goal (Liters) Net fluid removal 0L - 1.5 L; Keep SBP >100 Access Site AVF Left Arm; 15G [place] Hepatitis B Surfaces Antigen (HBsAg) Resulted in Last 30 days? See Below Yes 06/24/20 0911 06/15/20 1257 IP Hemodialysis orders/machine parameters - Q MON [...] implied in this order set. Ordering Provider: Avril Calderon MD Question Answer Comment Diagnosis End stage renal disease Duration of treatment (hours) 4 Dialyzer Other (please specify) Elisio 19H BFR 350 mL/min DFR 700 mL/min Dialysate Temperature (C) 36 K+ Sliding Scale Potassium On 06/15/2020: 1 K x 1 hour then 2K remainder of treatment Ca++ 2.5 mEq Bicarb 35 mEq Na+ 140 mEq Dry Weight/Fluid Removal Goal (Liters) Net fluid removal 0L - 1.5 L; Keep SBP >100 Access Site AVF Left Arm; 15G [place] Hepatitis B Surfaces Antigen (HBsAg) Resulted in Last 30 days? See Below Yes 06/15/[address] [facility] HD PreTreatment (last [address]) [facility] HD Pre-Treatment No documentation. Assessment Data (last 720 hours) HD Pre-Treatment No documentation. Assessment Data (last 720 hours) HD Treatment No documentation. Assessment Data (last 720 hours) HD Post-Treatment Row Name 06/24/20 1426 06/22/20 1415 06/17/20 1655 Post-Hemodialysis Assessment Post-Treatment procedures -- Blood returned -- Prescribed Treatment Time (minutes) -- 240 -- Duration of Treatment (minutes) -- 217 minutes -- Dialyzer Clearance -- Moderately streaked -- Total Liters Processed (L) -- 73.7 Liters -- Rinseback Volume (mL) -- 500 mL -- Net fluid removal (ml) 2000 mL 1100 mL 400 mL BP -- 143/81 142/82 Pulse -- 101 106 Temp -- 96.9 ??F (36.1 ??C) 97.8 ??F (36.6 ??C) Temp src -- Temporal Temporal Resp -- 18 18 Hemodialysis Weights Fluid removal goal -- 2000 -- Pre Weight -- (!) 306 lb (138.8 kg) -- Pre Weight Source -- Bed Scale Weight -- Post Weight -- (!) 303 lb 9.2 oz (137.7 kg) -- Post Weight Source -- Bed Scale Weight -- Hemodialysis Access Arteriovenous Fistula Left Forearm Properties Placement Date: -- , present on admission Access Type: Arteriovenous Fistula Orientation: Left Access Location: Forearm Bruit -- Present -- Thrill -- Present -- Site Assessment -- no S/S of infection -- Row Name 06/15/20 1826 06/12/20 1900 Post-Hemodialysis Assessment Net fluid removal (ml) 500 mL 1000 mL BP 100/65 136/65 Pulse 101 104 Temp 96.4 ??F (35.8 ??C) 97.8 ??F (36.6 ??C) Temp src Temporal Temporal Resp -- 18 [REMOVED] HD Catheter Dual Lumen (Vas Cath) Tunneled Right Internal Jugular Properties Placement Date: 07/23/19 Placement Time: 1018 Pt location at time of line placement: IR Conditions of line placement: Sterile Inserted by: kiesha burton Access Type: Dual Lumen (Vas Cath) Description: Tunneled , covidien. palindrome. si chronic catheter kit. ex: lot: [id number] Orientation: Right Access Location: Internal Jugular Size (Ukrainian): -- , 14.5 Catheter fully inserted (hub at skin): yes Removal Date: 06/09/20 Removal Time: 906 Removal Reason : Not present upon assessment Hemodialysis Access Arteriovenous Fistula Left Forearm Properties Placement Date: -- , present on admission Access Type: Arteriovenous Fistula Orientation: Left Access Location: Forearm Tashi Merino INFRASTRUCTURE SOLUTIONS ARCHITECT, CLERK OF SUPERIOR COURT Care Management [phone] documented in this encounter Discharge Instructions * Discharge Instructions* Tashi Merino - 06/25/2020 8:56 AM EST It is very important that you keep all of your follow up appointments. A complete list of your appointments can be found below in the What's Next section. Should you need to cancel or reschedule chauncey appointment, please contact the appropriate office at least 24 hours prior to your appointment. [facility] will provide your home care services. You will receive physical therapy, occupational therapy, and chcf. If you have not heard from them within 24 hours of discharge,please call them. Their number is [phone]. [facility] will provide your medical equipment. You have been ordered a bedside commode. Their phone number is [phone]. [facility] will provide your home infusion. Their phone number is [phone]. Thank you, again, [facility]. If you have any additional questions or concerns you may contact Tashi Merino Sprinkler Repair Technician, at [phone]. Best wishes for continued health! documented in this encounter Medications at Time [...] 14 packet 0 ALPRAZolam (XANAX) 0.5 MG tabletIndications:A nxiety Take 1 tablet (0.5 mg total) by mouth 3 times a day as needed for up to 5 days. 15 tablet 0 06/30/20 20 oxyCODONE (ROXICODONE) 5 MG immediate release tabletIndications:O ther osteonecrosis, left femur (CMS-HCC) Take 1 tablet (5 mg total) by mouth every 4 hours as needed for up to 5 days. 20 tablet 0 06/30/20 20 blood sugar diagnostic [facility] Use to test blood sugar up to 4 times a day. Diagnosis for use: E 9.65. For use with One Touch Verio meters. 150 strip 5 8 03/18/20 22 blood-glucose meter (ONETOUCH VERIO SYSTEM) [facility] Use as instructed. 1 each 8 03/18/20 22 cycloSPORINE modified (NEORAL) 100 MG capsule Take 1 capsule (100 mg total) by mouth 2 times a day. 60 capsule 0 07/06/20 20 entecavir (BARACLUDE) 0.5 MG tablet Take 1 tablet (0.5 mg total) by mouth every 7 days. 4 tablet 5 0 07/10/20 20 ergocalciferol (ERGOCALCIFEROL) 1,250 mcg (50,000 unit) capsule Take 50,000 Units by mouth every Monday, , and Monday. 03/18/20 22 famotidine (PEPCID) 20 MG tablet Take 20 mg by mouth daily. 07/20/20 20 fluticasone propionate (FLONASE) 50 mcg/actuation nasal spray [...] 100 unit/mL (3 mL) InPnIndications:S/P liver transplant ([facility]-H[facility]),Hyperglyc emia Inject subcutaneously 12 units in the AM and 6 units in the PM. 15 mL 5 0 11/02/19 22 lancets (ONETOUCH DELICA LANCETS) 33 gauge Misc Use 1 strip as directed 4 times daily before meals and at bedtime. 150 each 5 8 03/18/20 22 lidocaine-prilocain e (EMLA) cream Apply topically. 0 07/20/20 20 lisinopriL (PRINIVIL) 40 MG tablet Take 1 [...] at bedtime. 15 tablet 0 11/01/19 22 vancomycin (VANCOCIN) IVPB 1000 mg with dialysis. 0 07/20/20 20 documented as of this encounter Progress Notes * Genevieve Silverio, MANAGER RECRUITING - 06/25/2020 3:12 PM EST Physical Therapy Treatment Name: Aiden Stauffer Jr. : 1975 Attending Physician: No att. providers found Admission Diagnosis: osteomyelitis 05/28/2020 [facility] Date: 06/25/2020 Reviewed Pertinent hospital course: Yes Hospital Course PT/OT: Aiden Stauffer??is a 45 y.o.??male??with history of liver transplant 2018 secondary to SAL, ESRD on home dialysis 5 days per week, DM who presents with 1 week of back pain, fever and AMS. ??Found to have discitis and epidural abscess on imaging.??Severe sepsis (fever, confusion, leukocytosis, lactic acidosis) in setting of immunosuppression, discitis, epidural abscess. MRIL5/S1 with osteomyelitis/discitis and fluid collection concerning for epidural abscess.??Upon arrival, neurosurgery was consulted. ??He underwent L5 laminectomy, epidural abscess I and D on 04/29 without complication. Precautions: (no restrictions on WBing) Activity Level: Activity as tolerated PT Assessment complete?: Yes OT Assessment complete?: Yes Assessment Assessment: Impaired Bed Mobility, Impaired Transfers, Impaired Gait, Impaired Balance, Impaired Strength, Impaired Safety Awareness, Impaired Sensation, Impaired Motor Control, Impaired Stair Negotiation, Impaired Activity Tolerance, Deconditioning Prognosis: Good Goals Met Goals Met: None Goals Goals to be met by: 07/07/20 Patient will transition from supine to sit: Modified Independent, without bedrails, HOB flat(by 07/07/20.) Patient will transfer from sit to stand: Stand-By assistance, up to assistive device(to RW by 07/07/20.) Patient will transfer bed/chair: Minimal assistance(by 06/23/20.) Patient will ambulate: (150' with RW and CGA by 07/07/20.) Patient will go up / down stairs: Contact Guard assistance(4 steps with 1 railing by 07/07/20.) Patient will sit edge of bed: Modified Independent(while performing UE activity by 06/23/20.) Patient will stand: Stand-By assistance, with assistive device(x 2 mins by 07/07/20.) Stand Assistive Device: Rolling walker Miscellaneous Goal #1: (Pt will increase score on FIST by 6 points by 07/07/20.) Miscellaneous Goal #2: (Pt will be indepedent with HEP for LE strengthening by 07/07/20.) Recommendation Plan Treatment/Interventions: LE strengthening/ROM, Endurance training, Patient/family training, Equipment eval/education, Gait training, Stair Training, Neuromuscular Reeducation, Therapeutic Activity, Therapeutic Exercise, Wheelchair Mobility PT Frequency: minimum 3x/week Recommendation Recommendation: Short-term skilled PT Equipment Recommended: Defer until further assessment Problem List Patient Active Problem List Diagnosis [...] TIPS PROCEDURE 10/2016 ??? TIPS Revision 04/2017 Cognition: Overall Cognitive Status: Within Functional Limits Arousal/Alertness: Alert Orientation Level: Oriented X4 Behavior: Appropriate;Cooperative Following Commands: Follows all commands and directions without difficulty Insight: Demonstrated decreased insght into limitations and abilites to complete ADls safely Pain: Pain Score: Does not rate Pain Location: RLE Pain Descriptors: Aching Pain Intervention(s): Rest Therapist reported pain to: Patient is able to make needs known Mobility: Bed Mobility Rolling: Minimal assistance;towards the left;towards the right;use of handrail Position after Treatment and Safety Handoff Position after therapy session: Bed Details: RN notified;Call light/ needs within reach Alarms: Bed Alarms Status: Unchanged from previous setting Mobility Recommendations for Staff Patient ability: Patient is unsafe to perform out of bed activity unless a therapist is present Cotx required this date d/t patient requiring the skills of two therapists to maximize therapeutic outcomes as well as to maximize safety for both patient and therapists. Upon arrival patient in supine and agreeable to therapy at this time but declining OOB tasks. Patient reporting wanting to remain in bed until family arrives to transport patient home d/t not wanting to fatigue himself or cause increased pain to RLE. Educated patient on benefits of sitting up in chair and completing transfer to w/c prior to family arriving to allow his RLE to rest before transferring to car with family but patient continued to decline. Educated patient on safety awareness within home environment, Home Health PT services, and HEP; patient verbalized understanding. Patient completed dressing tasks in supine, rolled with Min A overall and increased time to complete. Also donned B tubigrips and reinforced wear times, patient verbalized understanding. Patient remained in supine at end of session with needs met. Patient to D/C home this afternoon, formal D/C to follow. Patient Education Safety awareness. Time Start Time: 1017 Stop Time: 1054 Time Calculation (min): 37 min Charges $Therapeutic Activity: 1 unit -1 unit cotx Continue per POC in collaboration with PT Genevieve Silverio PTA [id number] Cosigned by Cindy Bedolla PT at 06/25/2020 4:00 PM EST Associated attestation - Cindy Bedolla PT - 06/25/2020 4:00 PM EST Cindy Rogers PT, DPT [id number] * Cindy Bedolla PT - 06/25/2020 2:02 PM EST Physical Therapy [facility] Physical Therapy Discharge Summary Name: Aiden Ivelisse Stauffer Jr. : 1975 Attending Physician: No att. providers found Admission Diagnosis: osteomyelitis 05/28/2020 [facility] Date: 06/25/2020 Initial Functional Mobility at time of Evaluation Bed Mobility Rolling: Stand by assistance, towards the right, towards the left, use of handrail(Able to scoot self up in bed using head of bed to pull up on independently. ) Supine to Sit: (mod assist from OT with pt pulling up on his hand. ) Sit to Supine: Minimal assistance(for LE ) Transfers Sit to Stand: (unable to tolerate due to pain) Bed to Chair: (unable to tolerate due to pain) Balance Sitting - Static: Contact Guard Assistance(pt uses B UEs to take weight off of his back in sitting,very guarded. ) Sitting-Dynamic: Contact Guard Assistance(with L UE taking some weight off of his back while movingR UE for OT assessment. ) Current Mobility: Bed Mobility Rolling: Minimal assistance, towards the left, towards the right, use of handrail Supine to Sit: Minimal assistance Sit to Supine: Moderate assistance, head of bed flat, use of handrail, increased time to complete task(for LE management) Transfers Sit to Stand: (from EOB: CGA x2, from w/c: Min A x2, from recliner: Mod A x2) Bed to Chair: stand pivot, with assistive device(varied between CGA/Min A x2 to Mod A x2) Chair to Bed: Minimal assistance, of 2 people, increased time to complete task, stand step, with assistive device, towards the left(w/c to recliner) Gait Distance: pt declined due to inc pain Wheelchair management Distance: (attempted, however, pt unable due to c/o pain and needing to use his B Ue's to position comfortably in the w/c) Balance Sitting - Static: Contact Guard assistance Sitting - Dynamic: Contact Guard Assistance Standing - Static: Contact Guard Assistance, 2 Person Assistance, With Assistive Device Standing-Static Asssistance Device: Rolling walker Standing - Dynamic: Minimal Assistance, 2 Person Assistance, With Assistive Device Standing-Dynamic Assistance Device: Rolling walker FUNCTION IN SITTING TEST FIST Test Item Score Anterior nudge: superior sternum 2 Posterior nudge: between scapular spines 2 Lateral nudge: to dominant side at acromion 2 Static sittin seconds 2 Sitting, shaking head 'no' 2 Sitting, eyes closed: 30 seconds 2 Sitting, lift foot: dominant side, lift foot 1 inch twice 2 auger supervisor object from behind: object at midline, hands breadth posterior 2 Forward reach: use dominant arm, must complete full motion 2 Lateral reach: use dominant arm, clear opposite ischial tuberosity 2 auger supervisor object from floor: from between feet 0 Posterior scooting: move backwards 2 inches 2 Anterior scooting: move forward 2 inches 2 Lateral scooting: move to dominant side 2 inches 2 Total Score: 26 /56 Scoring Dyer 4 = Independent 3 = Verbal cues/increased time 2 = Upper extremity support 1 = Needs assistance (document min, mod, max) 0 = Dependent Goals Goals to be met by: 07/07/20 Patient will transition from supine to sit: Modified Independent, without bedrails, HOB flat(by 07/07/20.) Patient will transfer from sit to stand: Stand-By assistance, up to assistive device(to RW by 07/07/20.) Patient will transfer bed/chair: Minimal assistance(by 06/23/20.) Patient will ambulate: (150' with RW and CGA by 07/07/20.) Patient will go up / down stairs: Contact Guard assistance(4 steps with 1 railing by 07/07/20.) Patient will sit edge of bed: Modified Independent(while performing UE activity by 06/23/20.) Patient will stand: Stand-By assistance, with assistive device(x 2 mins by 07/07/20.) Stand Assistive Device: Rolling walker Miscellaneous Goal #1: (Pt will increase score on FIST by 6 points by 07/07/20.) Miscellaneous Goal #2: (Pt will be indepedent with HEP for LE strengthening by 07/07/20.) Assessment Patient has demonstrated progress towards goals with PT but has been limited overall by RLE pain and decreased activity tolerance. Patient shows potential for increased independence and progress withPT but has chosen to return home despite recommendations by MD and therapy at this time to continuewith inpatient stay to optimize safety and mobility in home. Patient's participated in family training for transfers, bed mobility, and HEP. Pt states his sons will also be available to assist at home as one of them lives with him and works brazer craw[employer] torch. Pt plans to call fire department once hearrives home to get in the house with 4 steps. It was explained in detail to pt and his how toperform car transfer. Pt states he will sit on the floor of a van to ride home. ?? Recommendation Recommend continued PT at LTAC or SNF level of care to ensure safety and D/C at highest level of function. Patient and patient's family aware of recommendation but have chosen to D/C home at this time. Recommend 06/03 assistance of 2 people, and Home Health PT. Pt owns required DME of w/c and RW. Section GG Section [id number] Mobility Admit Status Goal D/C Status CODING Code for patient???s usual performance: ?? 06- Independent (Mod I/ I) 05- Setup and clean-up assistance (S/U) 04- Supervision or touching assistance (S, SBA, CGA) 03- Partial/moderate assistance (Min A/Mod A) 02- Substantial/maximal assistance (Max A) 01- Dependent (assist of 2 or more) ?? Roll left and right: The ability to roll from lying on back to left and right and return to lying on back on bed. 04 06 ??03 Sit to lying: The ability to move from sitting on side of bed to lying flat on the bed. 03 06 ??03 Lying to sitting on side of bed: The ability to move from lyingon the back to sitting on the side of the bed with feet flat on the floor and with no back support. 03 06 ??03 Sit to stand: The ability to come to standing position from sitting in a chair, w/c, or on the sideof the bed. 88 04 ??01 Chair/[id number] transfer: The ability to transfer to and from a bed to a chair or wheelchair. 8804 ??01 If activity was not attempted, code reason: ?? 07-Patient refused 09-Not applicable 88- Not attempted due to medical condition or safety concerns 10- Not attempted due to environmental limitations ?? Walk 10 feet: Once standing, the ability to walk at least 10 feet in a room, corridor, or similar space. If admission performance is coded 07, 09, 10, 88, SKIP to question, ???does the patient use a w/c and/or scooter? 88 04 ??88 Walk 50 feet with two turns: Once standing, the ability to walk 50 feet and make two turns. 88 04 ??88 Walk 150 feet: Once standing, the ability to walk at least 150 feet in a corridor or similar space.88 04 ??88 Does the patient use a wheelchair/ scooter? Yes Yes Yes Code for wheelchair/scooter type: ?? 1-Manual 2-Motorized ?? Wheel 50 feet with 2 turns: Once seated in w/c /scooter, the ability to wheel at least 50 feet and make two turns. 88 04 ??01 Indicate type of wheelchair or scooter used. ??1 1 ??1 Wheel 150 feet: Once seated in w/c /scooter, the ability to wheel at least 150 feet in a corridor or similar space. 88 04 ??01 Indicate type of wheelchair or scooter used. ??1 1 ??1 ?? Discharge POC in collaboration with PT Genevieve Silverio, MANAGER RECRUITING [id number] Cindy Rogers, PT, DPT [id number] * Maru Bianchi RN - 06/25/2020 12:57 PM EST Patient is alert, sitting in bed eating lunch at this time. Patient is oriented and pleasant. VSS, RR are even and unlabored. Patient is able to communicate needs approprietly and denies pain at thistime. Patient remains free from falls and injury during shift. No signs of distress noted. Patient is to be discharged this afternoon. Patient will be escorted to private vehicle by staff and leave with * Laurence Mora OT - 06/25/2020 11:48 AM EST Occupational Therapy [facility] Occupational Therapy Discharge Summary Name: Aiden Stauffer Jr. : 1975 Attending Physician: Jake Zavala MD Admission Diagnosis: osteomyelitis 05/28/2020 [facility] Date: 06/25/2020 Initial Functional Mobility at time of Evaluation Bed Mobility Rolling: Stand by assistance Supine to Sit: Moderate assistance, use of handrail(used bedrail, support from OT while pulling up) Sit to Supine: Minimal assistance(assist with feet) Balance Sitting - Static: Contact Guard Assistance Sitting-Dynamic: Contact Guard Assistance Current Mobility Bed Mobility Rolling: Minimal assistance, use of handrail, towards the left, towards the right Supine to Sit: Minimal assistance, head of bed flat, increased time to complete task(to advance trunk to upright) Sit to Supine: increased time to complete task, head of bed flat, Moderate assistance(to lift LEs into bed) Functional Transfers Sit to Stand: up to assistive device(CGA x2 from EOB, MinAx 2 from w/c, ModA x2 from lower recliner; up to RW) Bed to Chair: Contact Guard assistance, Minimal assistance, of 2 people, with assistive device, increased time to complete task, stand pivot Bed to Chair Assistance Device: Rolling walker Chair to Bed: (Min-ModA x2 from w/c to recliner) Functional Mobility: Minimal assitance, of 2 people, Cues for proper positioning, with assistive device, increased time to complete task Balance Sitting - Static: Contact Guard assistance Sitting - Dynamic: Contact Guard Assistance Standing - Static: Contact Guard Assistance, With Assistive Device Standing-Static Asssistance Device: Rolling walker Standing - Dynamic: Minimal Assistance, 2 Person Assistance Standing-Dynamic Assistance Device: Rolling walker Initial ADL's at time of Evaluation Feeding: Independent(independent for nursing) Toileting: Total assistance Toileting Deficit: Use of bedpan/urinal setup Toileting Deficit Additional Comments: pt reports using bedpan Current ADL's Feeding: Independent Location Assessed Eating: Supine in bed Feeding Deficit Additonal Comments: beverage management Grooming: Supervision Grooming Deficit: Set-up Location Assessed Grooming: Supine in bed Grooming Deficit Additonal Comments: put on yanet/washed face in bed Bathing: Moderate assistance Bathing Deficit: Set-up, Perineal area, Left lower leg including foot, Right upper leg, Buttocks, Left upper leg, Right lower leg including foot Location Assessed Bathing: Supine in bed Bathing Deficit Additonal Comments: pt able to wash UB but unable to wash LB Upper Body Dressing: Minimal assistance Upper Body Dressing Deficit: Pull down in back Location Assessed UE Dressing: Supine in bed Upper Body Dressing Deficit Additonal Comments: doffing gown and donning overhead shirt Lower Body Dressing: Maximum assistance Lower Body Dressing Deficit: Set-up, Thread LLE, Thread RLE, Pull up over hips, Increased time to complete Location Assessed LE Dressing: Supine in bed Lower Body Dressing Deficit Additonal Comments: donning underwear, pants, and BLE tubigrips Toileting: Total assistance Toileting Deficit: Use of bedpan/urinal setup Toileting Deficit Additonal Comments: pt did not assist when using bedpan Goals Goals to be met in: in 4 weeks (07/10) Patient stated goal: to go home Patient will complete supine to sit in prep for ADLs: Independent(in 4 weeks (07/10)) Goal Not Met;SBA Patient will complete functional chair transfer: Contact Guard assistance(in 4 weeks (07/10)) Goal Not Met; varying from CGAx 2 - ModA x 2 via SPT with RW Patient will complete toilet transfer: Contact Guard assistance(in 4 weeks (07/10)) Goal Not Met; pt declined to attempt BSC transfer Patient will complete toileting: Stand-by assistance(in 4 weeks (07/10)) Goal Not Met; MaxA/TotalA for voiding bowels and Lucrecia for use of urinal to void bladder Patient will complete upper body dressing: Independent(in 4 weeks (07/10)) Goal Partially Met; pt has demo'd independence but more often requires Lucrecia Patient will complete lower body dressing: Minimal assistance(in 4 weeks (07/10)) Goal Not Met; MaxA Patient will complete upper body bathing : Modified Independent(in 4 weeks (07/10)) Goal Met Patient will complete lower body bathing : Stand-by assistance(in 4 weeks (07/10)) Goal Not Met; Max/TotalA Pt Will participate in upper extremity HEP to prep for ADLs: : ongoing Goal Met Miscellaneous Goal #1: Pt will ambulate household distances with RW and CGA Goal Not Met; N/A Pipe Supervisor Goal : Pt will increase score on Dylon Index by 5 points by 07/21 skilled nursing goal to be met in: 6 weeks Goal Not Met Collaborated with: Patient DYLON INDEX OF ACTIVITIES OF DAILY LIVING Bowels 0=incontinent (or needs to be given enemata) 1=occasional accident (once/week) 2=continent ?? Patient???s Score: 2 Transfer 0=unable-no sitting balance 1=major help (one or two people, physical), can sit 2=minor help (verbal or physical) 3=independent Patient???s Score: 1 Bladder 0=incontinent, or catheterized and unable to manage 1=occasional accident (max. once per 24 hours) 2=continent (for over 7 days) ?? Patient???s Score: ___2 Mobility 0=immobile 1=wheelchair independent, including corners, etc. 2=walks with help of one person (verbal or physical) 3=independent (but may use any aid, e.g. stick) Patient???s Score: 0 Grooming 0=needs help with personal care 1=independent face/hair/teeth/shaving (implements provided) Patient???s Score: 1 Dressing 0=dependent 1=needs help, but can do about half unaided 2=independent (including buttons, zips, laces, etc.) Patient???s Score: 1 Toilet Use 0=dependent 1=needs some help, but can do something alone 2=independent (on and off, dressing, wiping) Patient???s Score: 0 Stairs 0=unable 1=needs help (verbal, physical, carrying aid) 2=independent up and down Patient???s Score: 0 Feeding 0=unable 1=needs help cutting, spreading butter, etc. 2=independent (food provided within reach) Patient???s Score: 2 Bathing 0=dependent 1=independent (or in shower) ?? Patient???s Score: ____0 ? TOTAL SCORE: ___9 /20 ? Assessment Pt met 09/24 goals. Pt has demonstrated progress with transfers since admission but has been limitedby brevity of stay and by R hip pain, which results in varying level of assist needed for transfers, from CGAx2-ModA x 2. Pt demonstrates potential for additional progress but is choosing to return home AMA at this time. Pt and pt's , Kym, completed family training and are aware of therapist's recommendations for transfers and ADLs (see below). Recommendation Recommend remaining in facility for care and then discharging to SNF when medically appropriate foradditional skilled OT in order to increase safety and independence with all ADLs/transfers prior toreturning home. Pt aware of recommendation but is choosing to d/c home AMA; recommend 24hr supervisi on/assistance and Home OT. Pt and his are aware of recommendation to use bedpan unless there is a second person available to assist with transferring to BSC and to utilize 2 person assist for all bed mobility and functional transfers. Pt has RW and w/c at home, and SW delivered BSC this date. No additional equipment needs at this time. Section GG ?? Section GG 0130 Self-Care Admit Status Goal D/C Status CODING ?? 06- Independent (Mod I/I) 05- Setup and clean-up assistance (S/U) 04- Supervision or touching assistance (S, SBA, CGA) 03- Partial/moderate assistance (Min A/ Mod A) 02- Substantial/maximal assistance (Max A) 01- Dependent (assist of 2 or more persons) ?? If activity was not attempted, code reason: 07-Patient refused 09-Not applicable 88- Not attempted due to medical condition or safety concerns Eating: The ability to use suitable utensils to bring food and/or liquid to the mouth and swallow food and/or liquid once the meal is placed before the patient. 06 06 ??06 Oral Hygiene: The ability to use suitable items to clean teeth. Dentures (if applicable): The ability to insert and remove dentures into and from the mouth, and manage denture soaking and rinsing with use of equipment. 06 06 ??06 Toileting Hygiene: The ability to maintain perineal hygiene, adjust clothes before and after voiding or having a bowel. If managing an ostomy including wiping the opening but not managing equipment. 01 04 ??01 Wash upper body: The ability to wash, rinse, and dry the face, hands, chest, and arms while sittingin a chair or bed. 02 06 ??05 Toilet Transfer: The ability to get on and off a toilet or commode. 88 04 ??88 ?? LLOYD Hassan, OTR/L License Number: [id number] [facility] M[facility] 7:30-4:00 * Laurence Mora OT - 06/25/2020 11:07 AM EST Occupational Therapy [facility] Daily Note Name: Aiden Stauffer : 1975 Attending Physician: Jake Zavala MD Admission Diagnosis: osteomyelitis 05/28/2020 [facility] Date: 06/25/2020 Reviewed Pertinent hospital course: Yes Hospital Course PT/OT: Aiden Stauffer??is a 45 y.o.??male??with history of liver transplant 2018 secondary to SAL, ESRD on home dialysis 5 days per week, DM who presents with 1 week of back pain, fever and AMS. ??Found to have discitis and epidural abscess on imaging.??Severe sepsis (fever, confusion, leukocytosis, lactic acidosis) in setting of immunosuppression, discitis, epidural abscess. MRIL5/S1 with osteomyelitis/discitis and fluid collection concerning for epidural abscess.??Upon arrival, neurosurgery was consulted. ??He underwent L5 laminectomy, epidural abscess I and D on 04/29 without complication. Precautions: (no restrictions on WBing) Activity Level: Activity as tolerated PT Assessment complete?: Yes OT Assessment complete?: Yes Brief Assessment Assessment: Decreased UE strength, Decreased activity tolerance, Decreased Functional Mobility, Decreased ADL status, Decreased sensation, Decreased self- care transfers, Decreased Balance, Decreased IADLs, Decreased Safe judgment during ADL Prognosis for OT goals: Good Goals Goals to be met in: in 4 weeks (07/10) Patient stated goal: to go home Patient will complete supine to sit in prep for ADLs: Independent(in 4 weeks (07/10)) Patient will complete functional chair transfer: Contact Guard assistance(in 4 weeks (07/10)) Patient will complete toilet transfer: Contact Guard assistance(in 4 weeks (07/10)) Patient will complete toileting: Stand-by assistance(in 4 weeks (07/10)) Patient will complete upper body dressing: Independent(in 4 weeks (07/10)) Patient will complete lower body dressing: Minimal assistance(in 4 weeks (07/10)) Patient will complete upper body bathing : Modified Independent(in 4 weeks (07/10)) Patient will complete lower body bathing : Stand-by assistance(in 4 weeks (07/10)) Pt Will participate in upper extremity HEP to prep for ADLs: : ongoing Miscellaneous Goal #1: Pt will ambulate household distances with RW and CGA Mcfp Goal : Pt will increase score on Dylon Index by 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 to be met in: 6 weeks Collaborated with: Patient Recommendation Plan Treatment Interventions: ADL retraining, UE strengthening/ROM, Compensatory technique education, Lower Extremity Intervention, Equipment eval/education, Activity Tolerance training, Therapeutic Activity, Neuro muscular reeducation, Energy Conservation, Functional transfer training, Excercise OT Frequency: minimum 3x/week Recommendation Recommendation: Short-term skilled OT Equipment Recommendations: Bedside commode Cognition Overall Cognitive Status: Within Functional Limits Arousal/Alertness: Alert Orientation Level: Oriented X4 Behavior: Appropriate;Cooperative Following Commands: Follows all commands and directions without difficulty Insight: Demonstrated decreased insght into limitations and abilites to complete ADls safely Pain Pt reported no pain in R hip or elsewhere but declined mobility d/t not wanting pain to increase. Pt aware of therapist's recommendation to request pain meds ~1 hour prior to d/c in attempt to increase his tolerance for vehicle ride home. Mobility Bed Mobility Rolling: Minimal assistance;use of handrail;towards the left;towards the right Despite max encouragement, pt declined OOB. Encouraged pt to transfer to w/c this morning with therapy in prep for upcoming d/c so that pt could then rest and elevate RLE for at least an hour before needing to transfer again into personal vehicle to go home. Pt reported fear of falling with transfers, stating that if he fell, it would prevent him from returning home. Educated pt that he is, in fact, a high fall risk and that if he anticipates he will fall during one of his transfers today, thatis an indicator that he is not safe to return home. SW delivered pt's BSC to room; OT additionally encouraged pt to trial BSC transfer as pt has not yet completed but plans to do so at home. Pt declining this transfer as well despite max encouragement/education. Exercises Previously issued BUE HEP; pt still has therabands and handouts in with his personal belongings in prep for d/c. Pt offered no questions re: completion. ADL Feeding: Independent Location Assessed Eating: Supine in bed Feeding Deficit Additonal Comments: beverage management Upper Body Dressing: Minimal assistance Upper Body Dressing Deficit: Pull down in back Location Assessed UE Dressing: Supine in bed Upper Body Dressing Deficit Additonal Comments: doffing gown and donning overhead shirt Lower Body Dressing: Maximum assistance Lower Body Dressing Deficit: Set-up;Thread LLE;Thread RLE;Pull up over hips;Increased time to complete Location Assessed LE Dressing: Supine in bed Lower Body Dressing Deficit Additonal Comments: donning underwear, pants, and BLE tubigrips Position after Treatment and Safety Handoff Position after therapy session: Bed Details: RN notified;Call light/ needs within reach Alarms: Bed Alarms Status: Unchanged from previous setting Patient Education: Therapist's remaining safety concerns re: pt's upcoming d/c to home AMA. Pt verbalized understanding but plans to proceed to home later this afternoon. Pt seen as cotx with PT this date due to requiring the skills of two therapists to safely advance mobility and to maximize therapeutic outcomes for pt. Pt supine in bed upon arrival to room, agreeable to change into personal clothes in prep for d/c home later but declining all OOB despite max encouragement, education, and multiple attempts (see above). Pt aware of therapist's safety concerns re: pt returning home at this time given his current functional level, inconsistency with transfers, andneed for assist with all ADLs; however, pt adamant about leaving this date. In prep for d/c, OT reviewed tubigrip wear schedule, LE edema management, bed mobility, and transfer recommendations with pt. Pt reported that he will have 3 person assist for car transfer from his family, so reviewed sequencing of that transfer as well. OT later returned to room and pt's , Kym, was on the phone. Educated pt and his on how to adjust BSC to an appropriate height and how to place/remove bowl for commode. Pt/family with no additional questions at this time. Pt left supine at EOS with all needs met/in reach. Time Start Time: 1018 Stop Time: 1054 Time Calculation (min): 36 min Start Time 2: 1124 Stop Time 2: 1130 Time Calculation (min): 6 min Total Time 44min / 3 units Charges $Therapeutic Activity: 8-22 mins $Self Care/ADL/Home Management Trainin-22 mins -1 cotx unit LLOYD Hassan, OTR/L License Number: [id number] [facility] M-F 7:30-4:00 * Jake Zavala MD - 06/25/2020 10:06 AM EST Interval Progress Note I spoke with Mr. Stauffer and his Kym this morning. I explained that I do not think it is safe for him to discharge today because he is unable to transfer independently. His agrees that he should remain at [facility] (we spoke by phone). However, she said that he is hardheaded and won't listen. I made the risks very clear to Mr. Stauffer that I felt he was at high risk of fall, and he acknowledged and understood my concerns. However, he remains adamant that he discharge today. I called his PCP, Dr. Edgar Fournier, in [place], [place] to relay discharge and medication plans. He was appreciative of the call. I also called Ms. Stauffer to review his prior to admission medications and arrange for refills. He has DME that will arrive at [facility] around noon. Discharge is planned for 14:00. Jake Zavala MD 06/25/2020 10:09 AM * Maru Benedict RN - 06/24/2020 11:58 PM EST Pt alert and orient currently in bed eyes closed; resting. All medication given without difficulties. Pt requested pain medicine, prn pain medicine given per orders with positive results. Took off Tubigrip socks, stated its hurting his legs. Call light in reach. Will continue POC. MARU BENEDICT * Genevieve Silverio PTA - 06/24/2020 1:14 PM EST Physical Therapy Treatment Name: Aiden LINN: 1975 Attending Physician: Jake Zavala MD Admission Diagnosis: osteomyelitis 05/28/2020 [facility] Date: 06/24/2020 Reviewed Pertinent hospital course: Yes Hospital Course PT/OT: Aiden Stauffer??is a 45 y.o.??male??with history of liver transplant 2018 secondary to SAL, ESRD on home dialysis 5 days per week, DM who presents with 1 week of back pain, fever and AMS. ??Found to have discitis and epidural abscess on imaging.??Severe sepsis (fever, confusion, leukocytosis, lactic acidosis) in setting of immunosuppression, discitis, epidural abscess. MRIL5/S1 with osteomyelitis/discitis and fluid collection concerning for epidural abscess.??Upon arrival, neurosurgery was consulted. ??He underwent L5 laminectomy, epidural abscess I and D on 04/29 without complication. Precautions: (no restrictions on WBing) Activity Level: Activity as tolerated PT Assessment complete?: Yes OT Assessment complete?: Yes Assessment Assessment: Impaired Bed Mobility, Impaired Transfers, Impaired Gait, Impaired Balance, Impaired Strength, Impaired Safety Awareness, Impaired Sensation, Impaired Motor Control, Impaired Stair Negotiation, Impaired Activity Tolerance, Deconditioning Prognosis: Good Goals Met Goals Met: None Goals Goals to be met by: 07/07/20 Patient will transition from supine to sit: Modified Independent, without bedrails, HOB flat(by 07/07/20.) Patient will transfer from sit to stand: Stand-By assistance, up to assistive device(to RW by 07/07/20.) Patient will transfer bed/chair: Minimal assistance(by 06/23/20.) Patient will ambulate: (150' with RW and CGA by 07/07/20.) Patient will go up / down stairs: Contact Guard assistance(4 steps with 1 railing by 07/07/20.) Patient will sit edge of bed: Modified Independent(while performing UE activity by 06/23/20.) Patient will stand: Stand-By assistance, with assistive device(x 2 mins by 07/07/20.) Stand Assistive Device: Rolling walker Miscellaneous Goal #1: (Pt will increase score on FIST by 6 points by 07/07/20.) Miscellaneous Goal #2: (Pt will be indepedent with HEP for LE strengthening by 07/07/20.) Recommendation Plan Treatment/Interventions: LE strengthening/ROM, Endurance training, Patient/family training, Equipment eval/education, Gait training, Stair Training, Neuromuscular Reeducation, Therapeutic Activity, Therapeutic Exercise, Wheelchair Mobility PT Frequency: minimum 3x/week Recommendation Recommendation: Short-term skilled PT Equipment Recommended: Defer until further assessment Problem List Patient Active Problem List Diagnosis [...] TIPS PROCEDURE 10/2016 ??? TIPS Revision 04/2017 Cognition: Overall Cognitive Status: Within Functional Limits Cognitive Assessment: Arousal/ Alertness Arousal/Alertness: Alert Orientation Level: Oriented X4 Behavior: Appropriate Following Commands: Follows all commands and directions without difficulty Safety Judgment: Decreased safety awareness;Decreased awareness of need for assistance Insight: Demonstrated decreased insght into limitations and abilites to complete ADls safely;Decreased awareness of need for assistance Pain: Pain Score: Does not rate Pain Location: RLE Pain Descriptors: Aching Pain Intervention(s): Repositioned, Rest Therapist reported pain to: Patient is able to make needs known Mobility: Bed Mobility Rolling: Minimal assistance;towards the left;towards the right;use of handrail Position after Treatment and Safety Handoff Position after therapy session: Bed Details: Call light/ needs within reach Alarms: Bed Alarms Status: Activated and Interfaced with call system Mobility Recommendations for Staff Patient ability: Patient is unsafe to perform out of bed activity unless a therapist is present Cotx required this date d/t patient requiring the skills of two therapists to maximize therapeutic outcomes as well as to maximize safety for both patient and therapists. Upon arrival patient in supine sleeping, increased time to rouse patient. Patient fitted for tubigrips per new MD orders. Also educated patient on wear schedule, patient verbalized understanding. Patient declined OOB tasks this date d/t pain levels, encouraged ROM and stretching but patient resistive. Patient requesting to complete toileting and hygiene tasks at this time. Increased time required for all tasks but patient able to roll side to side throughout, increased assist for rolling noted d/t patient's increased edema. Patient still insistent on returning home tomorrow despite recommendations from staff on safety concerns. Patient positioned for comfort with needs met at end of session. Plan to continue transfer tasks next session. Patient Education Role of PT, Bed mobility. Time Start Time: 829 Stop Time: 923 Time Calculation (min): 54 min Charges $Therapeutic Activity: 2 units -2 units cotx Continue per POC in collaboration with PT Genevieve Silverio, MANAGER [employer]UITING [id number] Cosigned by Cindy Bedolla PT at 06/25/2020 8:08 AM EST Associated attestation - Cindy Bedolla PT - 06/25/2020 8:08 AM EST Cindy Rogers, PT, DPT [id number] * Barbara Jay RN - 06/24/2020 11:34 AM EST Late entry, patient transferred to hemodialysis for treatment. Patient appear stable at time of transfer. Ticket to ride completed. Plan of care continue. * Laurence Mora OT - 06/24/2020 11:22 AM EST Occupational Therapy [facility] Occupational Therapy [facility] Daily Note Name: Aiden Stauffer Jr. : 1975 Attending Physician: Jake Zavala MD Admission Diagnosis: osteomyelitis 05/28/2020 [facility] Date: 06/24/2020 Reviewed Pertinent hospital course: Yes Hospital Course PT/OT: Aiden Stauffer??is a 45 y.o.??male??with history of liver transplant 2018 secondary to SAL, ESRD on home dialysis 5 days per week, DM who presents with 1 week of back pain, fever and AMS. ??Found to have discitis and epidural abscess on imaging.??Severe sepsis (fever, confusion, leukocytosis, lactic acidosis) in setting of immunosuppression, discitis, epidural abscess. MRIL5/S1 with osteomyelitis/discitis and fluid collection concerning for epidural abscess.??Upon arrival, neurosurgery was consulted. ??He underwent L5 laminectomy, epidural abscess I and D on 04/29 without complication. Precautions: (no restrictions on WBing) Activity Level: Activity as tolerated PT Assessment complete?: Yes OT Assessment complete?: Yes Brief Assessment Assessment: Decreased UE strength, Decreased activity tolerance, Decreased Functional Mobility, Decreased ADL status, Decreased sensation, Decreased self- care transfers, Decreased Balance, Decreased IADLs, Decreased Safe judgment during ADL Prognosis for OT goals: Good Goals Goals to be met in: in 4 weeks (07/10) Patient stated goal: to go home Patient will complete supine to sit in prep for ADLs: Independent(in 4 weeks (07/10)) Patient will complete functional chair transfer: Contact Guard assistance(in 4 weeks (07/10)) Patient will complete toilet transfer: Contact Guard assistance(in 4 weeks (07/10)) Patient will complete toileting: Stand-by assistance(in 4 weeks (07/10)) Patient will complete upper body dressing: Independent(in 4 weeks (07/10)) Patient will complete lower body dressing: Minimal assistance(in 4 weeks (07/10)) Patient will complete upper body bathing : Modified Independent(in 4 weeks (07/10)) Patient will complete lower body bathing : Stand-by assistance(in 4 weeks (07/10)) Pt Will participate in upper extremity HEP to prep for ADLs: : ongoing Miscellaneous Goal #1: Pt will ambulate household distances with RW and CGA Mcfp Goal : Pt will increase score on Dylon Index by 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 to be met in: 6 weeks Collaborated with: Patient Recommendation Plan Treatment Interventions: ADL retraining, UE strengthening/ROM, Compensatory technique education, Lower Extremity Intervention, Equipment eval/education, Activity Tolerance training, Therapeutic Activity, Neuro muscular reeducation, Energy Conservation, Functional transfer training, Excercise OT Frequency: minimum 3x/week Recommendation Recommendation: Short-term skilled OT Equipment Recommendations: Bedside commode Cognition Overall Cognitive Status: Within Functional Limits Cognitive Assessment: Arousal/ Alertness Arousal/Alertness: Alert Orientation Level: Oriented X4 Behavior: Appropriate Following Commands: Follows all commands and directions without difficulty Safety Judgment: Decreased safety awareness;Decreased awareness of need for assistance Insight: Demonstrated decreased insght into limitations and abilites to complete ADls safely;Decreased awareness of need for assistance Pain Pt reported pain in RLE (NR); MD in room and aware; pt able to make needs known; repositioned to comfort at EOS. Mobility Bed Mobility Rolling: Minimal assistance Exercises Exercises Gross Upper Body Strengthening: Theraband Gross Upper Body Strengthening Comment: red theraband HEP: elbow flexion/extension x10, shoulder flexion/horizontal abduction x10; handout provided ADL Grooming: Supervision Grooming Deficit: Set-up Location Assessed Grooming: Supine in bed Grooming Deficit Additonal Comments: put on deodorant/washed face in bed Bathing: Moderate assistance Bathing Deficit: Set-up;Perineal area;Left lower leg including foot;Right upper leg;Buttocks;Left upper leg;Right lower leg including foot Location Assessed Bathing: Supine in bed Bathing Deficit Additonal Comments: pt able to wash UB but unable to wash LB Upper Body Dressing: Supervision Upper Body Dressing Deficit: Set-up;Increased time to complete Location Assessed UE Dressing: Supine in bed Upper Body Dressing Deficit Additonal Comments: shirt donned in bed Lower Body Dressing: Maximum assistance Lower Body Dressing Deficit: Set-up;Thread RLE;Thread LLE;Supervision/safety;Pull up over hips Location Assessed LE Dressing: Supine in bed Lower Body Dressing Deficit Additonal Comments: Pt partially assisted pulling pants over hips Toileting: Total assistance Toileting Deficit: Use of bedpan/urinal setup Toileting Deficit Additonal Comments: pt did not assist when using bedpan Pt seen sleeping in bed, agreeable for tx. Pt seen as cotx with PT as the skills of 2 therapists are needed to maintain pt and therapists' safety as well as maximize outcomes for pt. Pt declining to get OOB this date d/t pain despite max encouragement. Pt first requested to bathe and change his clothes, pants doffed with max A, pt requested to use the restroom, did so with bedpan and total A. Bathing tasks then completed; pt able to only partially wash magy area, was dependent for rest of LB bathing, pt able to wash most of his UB with the exception of his back. Tubigrips then applied to bothLE's to prevent swelling, pt donned pants with max A, only able to partially help pull them up, shirt donned with Supervision. Pt relying heavily on bed rails for rolling this date, however pt claimsthis won't be a problem at home as he states he has a half bed rail at home to assist him with rolling. Pt still adamant about going home tomorrow despite max education on how this is unsafe. Sessionconcluded by introduction of red theraband HEP, pt completed exercises as listed above. Pt left in bed with needs and call light within reach. Continue with fxl transfers and ADL independence as tolerated. Christiano Camacho S/OT Position after Treatment and Safety Handoff Position after therapy session: Bed Details: Call light/ needs within reach Alarms: Bed Alarms Status: Activated and Interfaced with call system Patient Education: UE HEP, tubigrip wear schedule Time Start Time: 831 Stop Time: 942 Time Calculation (min): 71 min Charges $Therapeutic Exercise: 8-22 mins $Therapeutic Activity: 8-22 mins(-2 cotx units) $Self Care/ADL/Home Management Trainin-22 mins ?? This therapist??performed treatment planning and problem solving in collaboration with OT/S in preparation for and throughout session. LLOYD Hassan, OTR/L License Number: [id number] [facility] M-F 7:30-4:00 * Jake Zavala MD - 06/24/2020 9:13 AM EST [facility] Hospitalist Attending Progress Note Chief Complaint / Reason for Follow-Up Aiden Stauffer Jr. is a 45 y.o. male on hospital day 16. The principal reason for today's follow upvisit is Osteomyelitis ([facility] Dx). Interval History / Subjective Mr. Stauffer reports that he is in pain today. He is having pain in R hip, which is worse than yesterday (although it is chronic). We again discussed his discharge plan. I reiterated that I do not think it is safe for him to go home, and I explained my reasoning. He was upset and stated that he has to go home. Yesterday he was able to transfer to wheelchair twice, but otherwise could not manage any therapy. He is very unrealistic about his limitations. Past medical, family, and social histories were reviewed as previously documented. Updates were made as necessary. Review of Systems (Focused) Review of Systems Constitutional: Negative for chills and fever. HENT: Negative for congestion and sore throat. Respiratory: Negative for cough, shortness of breath and wheezing. Cardiovascular: Negative for chest pain and palpitations. Gastrointestinal: Negative for abdominal pain, constipation, diarrhea, nausea and vomiting. Musculoskeletal: Positive for joint pain (R hip). Negative for back pain. Skin: Negative for itching and rash. Neurological: Negative for dizziness and headaches. Vital Signs Vitals: 06/23/20 1810 06/23/20 1900 06/23/20 2043 06/24/20 0500 BP: 133/72 136/67 140/74 BP Location: Right arm Right arm Right arm Patient Position: Lying Lying Lying Pulse: 96 100 99 98 Resp: Temp: 98.4 ??F (36.9 ??C) 98.4 ??F (36.9 ??C) 98.1 ??F (36.7 ??C) TempSrc: Oral Oral Oral SpO2: 98% 97% 94% 98% Weight: Height: Physical Exam Physical Exam Vitals signs and nursing note reviewed. Constitutional: General: He is not in acute distress. Appearance: He is well-developed. He is obese. HENT: Head: Normocephalic and atraumatic. Mouth/Throat: Pharynx: No oropharyngeal exudate. Eyes: General: No scleral icterus. Conjunctiva/sclera: Conjunctivae normal. Cardiovascular: Rate and Rhythm: Normal rate and regular rhythm. Heart sounds: Normal heart sounds. No murmur. Pulmonary: Effort: Pulmonary effort is normal. No respiratory distress. Breath sounds: Normal breath sounds. No wheezing. Abdominal: General: Bowel sounds are normal. There is no distension. Palpations: Abdomen is soft. Tenderness: There is no abdominal tenderness. Skin: General: Skin is warm and dry. Findings: No erythema. Neurological: Mental Status: He is alert and oriented to person, place, and time. Psychiatric: Behavior: Behavior normal. Diagnostic Studies Labs reviewed: glucose trend No imaging today. Assessment & Plan Hospital Problems Principal Problem: Osteomyelitis ([facility] Dx) Active Problems: Essential (primary) hypertension Type 2 diabetes mellitus with diabetic chronic kidney disease ([facility] Dx) Immunosuppression for liver transplant ([facility] Dx) ESRD (end stage renal disease) ([facility] Dx) Prophylaxis for cytomegalovirus Anemia, unspecified Obstructive sleep apnea Anxiety Right hip pain Hepatitis B carrier (CMS Dx) Today's Plan * Osteomyelitis (CMS Dx)- (present on admission) Infectious diseases plans for extended course given immunosuppression. PLAN: ?? Continue vancomycin with dialysis, treat through 07/23/2020 ?? Safety labs weekly ?? Refer for home infusion after discharge Right hip pain Still unable to walk with therapy. Per PT, he is able to transfer but otherwise is not mobile. PLAN: ?? Continue gabapentin 100 mg PO BID ?? Continue methocarbamol 500 mg PO four times per day ?? Continue PRN oxycodone 5 mg or 10 mg PO Q4H Anemia, unspecified- (present on admission) Transfuse today in dialysis. PLAN: ?? Continue epoetin 6000 units Mon/Wed/Fri ?? Transfuse 1 unit PRBC tomorrow with dialysis Type 2 diabetes mellitus with diabetic chronic kidney disease (CMS Dx)- (present on admission) Glucose well controlled yesterday. Received 1 unit of correction. PLAN: ?? Continue insulin glargine 10 units subcutaneous QHS ?? Continue insulin lispro 6 units subcutaneous QAC ?? Continue insulin lispro correction 0-5 units subcutaneous QAC per low-dose scale ?? Fingersticks QAC/QHS Essential (primary) hypertension- (present on admission) The patient's blood pressure is above goal this morning, but is usually well controlled. BP: 140/74. Will re-assess tomorrow. PLAN: ?? Continue hydralazine 100 mg PO Q8H ?? Continue nifedipine XR 90 mg PO BID ?? Continue metoprolol 25 mg PO BID ?? Continue terazosin 10 mg PO QHS Inpatient Management: ?? Diet: renal ?? IV fluids: none ?? Pain management: acetaminophen, oxycodone ?? Lines: none ?? DVT prophylaxis: heparin (dialysis) ?? Precautions/Isolation: none ?? Ambulation: as tolerated with assistance ?? Restraints: none Ancillary services: PT, OT and Wound Care ?? Patient status: inpatient ?? Code status: Full Code Jake Zavala MD 06/24/2020 9:22 AM * Kelsie Scanlon, PharmD - 06/24/2020 8:00 AM EST Images from the original note were not included. Clinical Pharmacy Service - Vancomycin Progress Note Aiden Stauffer Jr. is a 45 y.o. male on vancomycin. Pharmacy consulted by the primary team to manage vancomycin dosing. Current Anti-Infectives Dose Frequency Start End entecavir (BARACLUDE) tablet 0.5 mg 0.5 mg Every 7 days 06/09/2020 Admin Instructions: ADMINISTER ON EMPTY STOMACH (2 HOURS BEFORE OR AFTER MEALS).
LEVEL 2 HAZARDOUS MEDICATION Route: Oral vancomycin (VANCOCIN) 1,000 mg in sodium chloride 0.9% 250 mL ADDaptor IVPB 1,000 mg Every Monday, Monday, Monday06/12/2020 07/23/2020 Admin Instructions: Please give dose after dialysis
Use ADDaptor product - Mix Thoroughly Before Administration Route: Intravenous Wt Readings from Last 3 Encounters: 06/22/20 (!) 306 lb (138.8 kg) 06/07/20 (!) 251 lb 15.8 oz (114.3 kg) 03/16/20 (!) 278 lb (126.1 kg) WBC, BUN, Creatinine (Last 7 days) WBC BUN Creatinine 4.8 10E3/uL 06/22/20 0515 27 mg/dL 06/22/20 0515 6.49 mg/dL 06/22/20 0515 5.9 10E3/uL 06/19/20 0602 29 mg/dL 06/19/20 0602 5.97 mg/dL 06/19/20 0602 20 mg/dL 06/17/20 1220 3.60 mg/dL 06/17/20 1220 Lab Results (Last 7 days) Vanc Tr 16.6 ug/mL 06/24/20 0545 16.4 ug/mL 06/22/20 0515 17.6 ug/mL 06/19/20 0602 Microbiology Results No orders found from 06/17/2020 to 06/25/2020. Current SCr: 6.49 mg/dL Patient received Hemodialysis every MWF Pertinent allergies: None pertinent Indication: Osteomyelitis/discitis/epidural abscess Goal Trough: 15-20 mg/L (pre-HD level may be 15-25) Tentative stop date: 07/23/20 per ID at [facility] Assessment and Plan ?? Patient is being treated with vancomycin for Osteomyelitis/discitis/epidural abscess ?? Currently receiving vancomycin 1000 mg during the last hour of dialysis every MWF ?? Vancomycin level drawn before dialysis is therapeutic at 16.6 mcg/mL ?? Continue current vancomycin dose at 1000 mg during the last hour of dialysis every MWF ?? Check next vancomycin level prior to hemodialysis session on 06/26/20 ?? Pharmacy will continue to monitor therapy for efficacy and toxicity Thank you for the consult KELSIE SCANLON PharmD 06/24/2020 8:00 AM Phone: [phone] For clinical pharmacy assistance after 4pm or on weekends, please call [phone] * Barbara Jay RN - 06/24/2020 7:51 AM EST Upon entering patient's room, patient in bed, eyes closed, open to touch and voice. Patient complained that right hip is aching. RN assist patient with repositioning and at this time will reassess. Patient educated on alternative pain management. Plan of care explained, safety/fall precaution in place and plan of care continue. * Britney Wood RN - 06/24/2020 7:07 AM EST MD notified per pt request about left foot pain. Prn pain medication given with good results. No new orders. * Dayana Marie RRT - 06/24/2020 12:32 AM EST Patient continues to decline both his home CPAP and the hospital unit. Dr. Soriano aware. Nasal cannula offered. * Genevieve Silverio PTA - 06/23/2020 4:58 PM EST Physical Therapy Treatment Name: Aiden Stauffer Jr. : 1975 Attending Physician: Jake Zavala MD Admission Diagnosis: osteomyelitis 05/28/2020 [facility] Date: 06/23/2020 Reviewed Pertinent hospital course: Yes Hospital Course PT/OT: Aiden Stauffer??is a 45 y.o.??male??with history of liver transplant 2018 secondary to SAL, ESRD on home dialysis 5 days per week, DM who presents with 1 week of back pain, fever and AMS. ??Found to have discitis and epidural abscess on imaging.??Severe sepsis (fever, confusion, leukocytosis, lactic acidosis) in setting of immunosuppression, discitis, epidural abscess. MRIL5/S1 with osteomyelitis/discitis and fluid collection concerning for epidural abscess.??Upon arrival, neurosurgery was consulted. ??He underwent L5 laminectomy, epidural abscess I and D on 04/29 without complication. Precautions: (no restrictions on WBing) Activity Level: Activity as tolerated PT Assessment complete?: Yes OT Assessment complete?: Yes Assessment Assessment: Impaired Bed Mobility, Impaired Transfers, Impaired Gait, Impaired Balance, Impaired Strength, Impaired Safety Awareness, Impaired Sensation, Impaired Motor Control, Impaired Stair Negotiation, Impaired Activity Tolerance, Deconditioning Prognosis: Good Goals Met Goals Met: None Goals Goals to be met by: 07/07/20 Patient will transition from supine to sit: Modified Independent, without bedrails, HOB flat(by 07/07/20.) Patient will transfer from sit to stand: Stand-By assistance, up to assistive device(to RW by 07/07/20.) Patient will transfer bed/chair: Minimal assistance(by 06/23/20.) Patient will ambulate: (150' with RW and CGA by 07/07/20.) Patient will go up / down stairs: Contact Guard assistance(4 steps with 1 railing by 07/07/20.) Patient will sit edge of bed: Modified Independent(while performing UE activity by 06/23/20.) Patient will stand: Stand-By assistance, with assistive device(x 2 mins by 07/07/20.) Stand Assistive Device: Rolling walker Miscellaneous Goal #1: (Pt will increase score on FIST by 6 points by 07/07/20.) Miscellaneous Goal #2: (Pt will be indepedent with HEP for LE strengthening by 07/07/20.) Recommendation Plan Treatment/Interventions: LE strengthening/ROM, Endurance training, Patient/family training, Equipment eval/education, Gait training, Stair Training, Neuromuscular Reeducation, Therapeutic Activity, Therapeutic Exercise, Wheelchair Mobility PT Frequency: minimum 3x/week Recommendation Recommendation: Short-term skilled PT Equipment Recommended: Defer until further assessment Problem List Patient Active Problem List Diagnosis [...] 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 Pulmonary HTN (CMS Dx) [...] TIPS PROCEDURE 10/2016 ??? TIPS Revision 04/2017 Cognition: Overall Cognitive Status: Within Functional Limits Arousal/Alertness: Alert Orientation Level: Oriented X4 Behavior: Cooperative;Appropriate Following Commands: Follows multistep commands;Requires verbal cues;Requires repetition of instruction Safety Judgment: Decreased safety awareness;Decreased awareness of need for assistance;Impaired judgment Insight: Demonstrated decreased insght into limitations and abilites to complete ADls safely Pain: Pain Score: Does not rate Pain Location: R Hip Pain Descriptors: Aching, Sore Pain Intervention(s): Repositioned, Rest Therapist reported pain to: Patient is able to make needs known Mobility: Bed Mobility Rolling: Stand-by assistance Supine to Sit: Minimal assistance Transfers Sit to Stand: (from EOB: CGA x2, from w/c: Min A x2, from recliner: Mod A x2) Bed to Chair: stand pivot;with assistive device(varied between CGA/Min A x2 to Mod A x2) Balance Sitting - Static: Contact Guard assistance Sitting - Dynamic: Contact Guard Assistance Standing - Static: Contact Guard Assistance;2 Person Assistance;With Assistive Device Standing-Static Asssistance Device: Rolling walker Standing - Dynamic: Minimal Assistance;2 Person Assistance;With Assistive Device Standing-Dynamic Assistance Device: Rolling walker Exercise: Therapeutic Exercises Side: bilateral Extremity: lower extremity Type of range of motion: AROM Supine Exercises: Ankle pumps;Quad sets;Gluteal sets;Straight leg raising;ABduction/ADduction;Heel slides;Short arc quads Reps/Comments: x5 reps with BLEs Seated Exercises: Ankle pumps;Hip flexion;Long arc quads;ABduction;ADduction Reps/Comments: x5 reps with BLEs Outcome Measure Unable to complete d/t family training. Position after Treatment and Safety Handoff Position after therapy session: Recliner Details: Call light/ needs within reach;visitor present Alarms: Chair Alarms Status: Activated and Interfaced with call system Mobility Recommendations for Staff Patient ability: Patient is unsafe to perform out of bed activity unless a therapist is present Cotx required this date d/t patient requiring the skills of two therapists to maximize therapeutic outcomes as well as to maximize safety for both patient and therapists. Upon arrival patient in supine and agreeable to therapy, patient's present as well for family training. Against advice frommedical and therapy teams, patient adamant about discharging home this week. Educated patient and patient's on BLE HEP and edema massage, bed mobility, transfers, equipment recommendations, car transfer, and positioning. Recommending 2 person assist for all transfers, patient reporting his sons will be available to assist as well. Completed bed mobility and transfers from bed to w/c, w/c to recliner, and sit to stand from recliner to RW as stated above. Cues required throughout for set up of tasks and hand placement for patient and . Assist of second person provided throughout for safety and d/t level of assist required. Patient and patient's reporting no additional questions at this time but did report feeling overwhelmed . Patient still insistent on returning home. Patient up in recliner at end of session with needs met. Plan to continue transfer training tasks next session. Patient Education Family training. Time Start Time: 1418 Stop Time: 1529 Time Calculation (min): 71 min Charges $Therapeutic Exercise: 8-22 mins $Therapeutic Activity: 2 units -2 units cotx Continue per POC in collaboration with PT Genevieve Silverio PTA [id number] Cosigned by Cindy Bedolla PT at 06/25/2020 8:09 AM EST Associated attestation - Cindy Bedolla PT - 06/25/2020 8:09 AM EST Cindy Rogers PT, DPT [id number] * Laurence Mora OT - 06/23/2020 4:45 PM EST Occupational Therapy [facility] [place] Daily Note Name: Aiden Stauffer Jr. : 1975 Attending Physician: Jake Zavala MD Admission Diagnosis: osteomyelitis 05/28/2020 [facility] Date: 06/23/2020 Reviewed Pertinent hospital course: Yes Hospital Course PT/OT: Aiden Stauffer??is a 45 y.o.??male??with history of liver transplant 2018 secondary to SAL, ESRD on home dialysis 5 days per week, DM who presents with 1 week of back pain, fever and AMS. ??Found to have discitis and epidural abscess on imaging.??Severe sepsis (fever, confusion, leukocytosis, lactic acidosis) in setting of immunosuppression, discitis, epidural abscess. MRIL5/S1 with osteomyelitis/discitis and fluid collection concerning for epidural abscess.??Upon arrival, neurosurgery was consulted. ??He underwent L5 laminectomy, epidural abscess I and D on 04/29 without complication. Precautions: (no restrictions on WBing) Activity Level: Activity as tolerated PT Assessment complete?: Yes OT Assessment complete?: Yes Brief Assessment Assessment: Decreased UE strength, Decreased activity tolerance, Decreased Functional Mobility, Decreased ADL status, Decreased sensation, Decreased self- care transfers, Decreased Balance, Decreased IADLs, Decreased Safe judgment during ADL Prognosis for OT goals: Good Goals Goals to be met in: in 4 weeks (07/10) Patient stated goal: to go home Patient will complete supine to sit in prep for ADLs: Independent(in 4 weeks (07/10)) Patient will complete functional chair transfer: Contact Guard assistance(in 4 weeks (07/10)) Patient will complete toilet transfer: Contact Guard assistance(in 4 weeks (07/10)) Patient will complete toileting: Stand-by assistance(in 4 weeks (07/10)) Patient will complete upper body dressing: Independent(in 4 weeks (07/10)) Patient will complete lower body dressing: Minimal assistance(in 4 weeks (07/10)) Patient will complete upper body bathing : Modified Independent(in 4 weeks (07/10)) Patient will complete lower body bathing : Stand-by assistance(in 4 weeks (07/10)) Pt Will participate in upper extremity HEP to prep for ADLs: : ongoing Miscellaneous Goal #1: Pt will ambulate household distances with RW and CGA Mcfp Goal : Pt will increase score on Dylon Index by 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 to be met in: 6 weeks Collaborated with: Patient Recommendation Plan Treatment Interventions: ADL retraining, UE strengthening/ROM, Compensatory technique education, Lower Extremity Intervention, Equipment eval/education, Activity Tolerance training, Therapeutic Activity, Neuro muscular reeducation, Energy Conservation, Functional transfer training, Excercise OT Frequency: minimum 3x/week Recommendation Recommendation: Short-term skilled OT Equipment Recommendations: Bedside commode Cognition Overall Cognitive Status: Within Functional Limits Arousal/Alertness: Alert Orientation Level: Oriented X4 Behavior: Cooperative;Appropriate Following Commands: Follows multistep commands;Requires verbal cues;Requires repetition of instruction Safety Judgment: Decreased safety awareness;Decreased awareness of need for assistance;Impaired judgment Insight: Demonstrated decreased insght into limitations and abilites to complete ADls safely Pain Pt reported R hip pain during mobility (NR); repositioned to comfort at EOS. Mobility Bed Mobility Rolling: Stand-by assistance;towards the left(bed flat and no handrails to simulate home setup) Supine to Sit: Minimal assistance;head of bed flat;increased time to complete task(to advance trunkto upright) Functional Transfers Sit to Stand: up to assistive device(CGA x2 from EOB, MinAx 2 from w/c, ModA x2 from lower recliner; up to RW) Bed to Chair: Contact Guard assistance;Minimal assistance;of 2 people;with assistive device;increased time to complete task;stand pivot Bed to Chair Assistance Device: Rolling walker Chair to Chair: (Min-ModA x2 from w/c to recliner) Balance Sitting - Static: Contact Guard assistance Exercises Exercises General Exercises: MANAGER RECRUITING educated pt and his on BLE HEP (see PT note for details) ADL Upper Body Dressing: Supervision Upper Body Dressing Deficit: Increased time to complete;Set-up;Supervision/safety Location Assessed UE Dressing: Supine in bed Upper Body Dressing Deficit Additonal Comments: doffing gown and donning overhead shirt Lower Body Dressing: Maximum assistance Lower Body Dressing Deficit: Thread RLE;Thread LLE Location Assessed LE Dressing: Supine in bed Lower Body Dressing Deficit Additonal Comments: Donning pants; pt able to pull up over hips Position after Treatment and Safety Handoff Position after therapy session: Recliner Details: Call light/ needs within reach Alarms: Chair Alarms Status: Activated and Interfaced with call system Patient Education: Pt and family education-see below. Pt supine in bed upon arrival to room, agreeable to therapy; pt's , Kym, also present for family training. Against advice from medical and therapy teams, pt adamant about discharging home this week. OT and MANAGER RECRUITING in room together to educate pt and his on the following topics: BLE HEP, bed mobility in standard bed with no rails, stand pivot transfers, use of bedpan vs BSC, equipment recommendations, safety awareness, sequencing of car transfer, placement of and how to fasten gait belt, andimportance of frequent repositioning in bed. Pt's provided hands-on assist with sup>sit, bed>w/c, w/c>recliner, and STS transfers ( ok with pt completing transfer training despite pt's low Hgb). Pt and aware of therapist's recommendation to utilize 2 person assist with all transfers to ensure pt and his family's safety d/t pt's inconsistency with mobility (varying level of assist from CGAx2- ModA x2; pt's knees buckling at times). Pt and also in agreement to use BSC only when a second person is available to assist and to use bedpan otherwise. Pt and with no additional questions at this time and verbalized understanding of all education although Kym did report feeling overwhelmed. Pt up in recliner at EOS with needs met/in reach. Time Start Time: 1418 Stop Time: 1529 Time Calculation (min): 71 min Charges $Therapeutic Activity: 23-37 mins(-3 cotx unit) LLOYD Hassan, OTR/L License Number: [id number] [facility] M-F 7:30-4:00 * Jake Zavala MD - 06/23/2020 10:20 AM EST [facility] Hospitalist Attending Progress Note Chief Complaint / Reason for Follow-Up Aiden Stauffer Jr. is a 45 y.o. male on hospital day 15. The principal reason for today's follow upvisit is Osteomyelitis ([facility] Dx). Interval History / Subjective Mr. Stauffer feels that his pain is better today, but still not resolved. He is still wanting to go home . I explained that therapy and I feel that he isn't strong enough to go yet, but he thinks that he will be OK once he gets home and has his walker. I encouraged him to work with therapy here to make sure he is able to walk before he is discharged. His is coming today for family teaching. Past medical, family, and social histories were reviewed as previously documented. Updates were made as necessary. Review of Systems (Focused) Review of Systems Constitutional: Negative for chills and fever. HENT: Negative for congestion and sore throat. Respiratory: Negative for cough, shortness of breath and wheezing. Cardiovascular: Negative for chest pain and palpitations. Gastrointestinal: Negative for abdominal pain, constipation, diarrhea, nausea and vomiting. Musculoskeletal: Positive for joint pain (R hip). Negative for back pain. Skin: Negative for itching and rash. Neurological: Negative for dizziness and headaches. Vital Signs Vitals: 06/23/20 0531 06/23/20 0842 06/23/20 0843 06/23/20 0948 BP: 156/70 154/72 BP Location: Right arm Patient Position: Lying Pulse: 97 98 Resp: 20 Temp: 99.2 ??F (37.3 ??C) TempSrc: Axillary SpO2: 90% (!) 86% 92% Weight: Height: Physical Exam Physical Exam Vitals signs and nursing note reviewed. Constitutional: General: He is not in acute distress. Appearance: He is well-developed. He is obese. HENT: Head: Normocephalic and atraumatic. Mouth/Throat: Pharynx: No oropharyngeal exudate. Eyes: General: No scleral icterus. Conjunctiva/sclera: Conjunctivae normal. Cardiovascular: Rate and Rhythm: Normal rate and regular rhythm. Heart sounds: Normal heart sounds. No murmur. Pulmonary: Effort: Pulmonary effort is normal. No respiratory distress. Breath sounds: Normal breath sounds. No wheezing. Abdominal: General: Bowel sounds are normal. There is no distension. Palpations: Abdomen is soft. Tenderness: There is no abdominal tenderness. Skin: General: Skin is warm and dry. Findings: No erythema. Neurological: Mental Status: He is alert and oriented to person, place, and time. Psychiatric: Behavior: Behavior normal. Diagnostic Studies Labs reviewed: glucose trend No imaging today. Assessment & Plan Hospital Problems Principal Problem: Osteomyelitis ([facility] Dx) Active Problems: Essential (primary) hypertension Type 2 diabetes mellitus with diabetic chronic kidney disease ([facility] Dx) Immunosuppression for liver transplant ([facility] Dx) ESRD (end stage renal disease) (CMS Dx) Prophylaxis for cytomegalovirus Anemia, unspecified Obstructive sleep apnea Anxiety Right hip pain Hepatitis B carrier (CMS Dx) Today's Plan Right hip pain Pain is better than on admission, but is still limiting his ability to participate with therapy. PLAN: ?? Continue gabapentin 100 mg PO BID ?? Continue methocarbamol 500 mg PO four times per day ?? Continue PRN oxycodone 5 mg or 10 mg PO Q4H Anemia, unspecified- (present on admission) Blood was unable to be obtained yesterday in time for infusion with dialysis. He is a difficult match. Will transfuse with dialysis on Monday. Asymptomatic. PLAN: ?? Continue epoetin 6000 units Mon/Mon/Mon ?? Transfuse 1 unit PRBC tomorrow with dialysis ESRD (end stage renal disease) (CMS Dx)- (present on admission) Tolerated dialysis well yesterday. PLAN: ?? Continue dialysis Type 2 diabetes mellitus with diabetic chronic kidney disease (CMS Dx)- (present on admission) Well controlled. AM glucose was 138. PLAN: ?? Continue insulin glargine 10 units subcutaneous QHS ?? Continue insulin lispro 6 units subcutaneous QAC ?? Continue insulin lispro correction 0-5 units subcutaneous QAC per low-dose scale ?? Fingersticks QAC/QHS Essential (primary) hypertension- (present on admission) The patient's blood pressure is above goal this morning, but is usually well controlled. BP: 154/72. Will re-assess tomorrow. PLAN: ?? Continue hydralazine 100 mg PO Q8H ?? Continue nifedipine XR 90 mg PO BID ?? Continue metoprolol 25 mg PO BID ?? Continue terazosin 10 mg PO QHS Inpatient Management: ?? Diet: renal ?? IV fluids: none ?? Pain management: acetaminophen, oxycodone ?? Lines: none ?? DVT prophylaxis: heparin (dialysis) ?? Precautions/Isolation: none ?? Ambulation: as tolerated with assistance ?? Restraints: none Ancillary services: PT, OT and Wound Care ?? Patient status: inpatient ?? Code status: Full Code Jake Zavala MD 06/23/2020 10:30 AM * Barbara Jay RN - 06/23/2020 9:29 AM EST Upon entering patient's room, patient in bed, eyes closed, open spontaneously. Patient alert and oriented time 4, denies any needs at this time. Plan of care explained to be and patient verbalized understanding. Patient encouraged to place call light on and wait assist with transfer or ambulation. Patient verbalized understanding and plan of care. Plan of care continue and call light within reach. * Rosalia Bianchi, RICARDO - 06/23/2020 8:43 AM EST 06/23/20 0843 Oxygen Therapy/Pulse Ox O2 Device Nasal Cannula O2 Therapy Oxygen humidified FiO2 28 % O2 Flow Rate (L/min) 2 L/min SpO2 92 % $Oxygen Timber Cruiser Charge Yes $Oximetry Spot Check Charge Y Was found on RA SpO2 86% placed on 2LNC * Britney Wood RN - 06/23/2020 4:03 AM EST Medication administered without difficulty. Denies pain or discomfort at this time. No significant changes during the night. Call light in reach. * Antonio Sexton, RICARDO - 06/22/2020 11:35 PM EST Patent declined the use of CPAP. Dr. Soriano was notified * Genevieve Silverio PTA - 06/22/2020 4:34 PM EST Physical Therapy Treatment Name: Aiden Stauffer Jr. : 1975 Attending Physician: Jake Zavala MD Admission Diagnosis: osteomyelitis 05/28/2020 [facility] Date: 06/22/2020 Reviewed Pertinent hospital course: Yes Hospital Course PT/OT: Aiden Stauffer??is a 45 y.o.??male??with history of liver transplant 2018 secondary to SAL, ESRD on home dialysis 5 days per week, DM who presents with 1 week of back pain, fever and AMS. ??Found to have discitis and epidural abscess on imaging.??Severe sepsis (fever, confusion, leukocytosis, lactic acidosis) in setting of immunosuppression, discitis, epidural abscess. MRIL5/S1 with osteomyelitis/discitis and fluid collection concerning for epidural abscess.??Upon arrival, neurosurgery was consulted. ??He underwent L5 laminectomy, epidural abscess I and D on 04/29 without complication. Precautions: (no restrictions on WBing) Activity Level: Activity as tolerated PT Assessment complete?: Yes OT Assessment complete?: Yes Assessment Assessment: Impaired Bed Mobility, Impaired Transfers, Impaired Gait, Impaired Balance, Impaired Strength, Impaired Safety Awareness, Impaired Sensation, Impaired Motor Control, Impaired Stair Negotiation, Impaired Activity Tolerance, Deconditioning Prognosis: Good Goals Met Goals Met: None Goals Goals to be met by: 07/07/20 Patient will transition from supine to sit: Modified Independent, without bedrails, HOB flat(by 07/07/20.) Patient will transfer from sit to stand: Stand-By assistance, up to assistive device(to RW by 07/07/20.) Patient will transfer bed/chair: Minimal assistance(by 06/23/20.) Patient will ambulate: (150' with RW and CGA by 07/07/20.) Patient will go up / down stairs: Contact Guard assistance(4 steps with 1 railing by 07/07/20.) Patient will sit edge of bed: Modified Independent(while performing UE activity by 06/23/20.) Patient will stand: Stand-By assistance, with assistive device(x 2 mins by 07/07/20.) Stand Assistive Device: Rolling walker Miscellaneous Goal #1: (Pt will increase score on FIST by 6 points by 07/07/20.) Miscellaneous Goal #2: (Pt will be indepedent with HEP for LE strengthening by 07/07/20.) Recommendation Plan Treatment/Interventions: LE strengthening/ROM, Endurance training, Patient/family training, Equipment eval/education, Gait training, Stair Training, Neuromuscular Reeducation, Therapeutic Activity, Therapeutic Exercise, Wheelchair Mobility PT Frequency: minimum 3x/week Recommendation Recommendation: Short-term skilled PT Equipment Recommended: Defer until further assessment Problem List Patient Active Problem List Diagnosis [...] TIPS PROCEDURE 10/2016 ??? TIPS Revision 04/2017 Cognition: Overall Cognitive Status: Within Functional Limits Arousal/Alertness: Alert Behavior: Cooperative;Apprehensive;Appropriate(apprehensive with mobility stating I can't do it before attempting) Following Commands: Follows multistep commands Safety Judgment: Decreased safety awareness;Impaired judgment Insight: Demonstrated decreased insght into limitations and abilites to complete ADls safely Pain: Pain Score: Does not rate Pain Location: R hip Pain Descriptors: Aching, Sharp Pain Intervention(s): Repositioning Therapist reported pain to: Patient is able to make needs known Mobility: Bed Mobility Rolling: Supervision(Supervision with handrail; SBA to the L with no handrail to simulate home setup) Supine to Sit: Stand-by assistance;towards the left;head of bed elevated;use of handrail;increased time to complete task Sit to Supine: Moderate assistance;head of bed flat;use of handrail;increased time to complete task(for LE management) Transfers Sit to Stand: Contact Guard assistance;Minimal assistance;of 2 people;up to assistive device;from elevated surface;increased time to complete task(Lucrecia x 1 with CGA of another progressing to CGA x2) Bed to Chair: (Not completed d/t pt needing to be in bed to go to dialysis following therapy session) Balance Sitting - Static: Contact Guard assistance Sitting - Dynamic: Contact Guard Assistance Standing - Static: Contact Guard Assistance;2 Person Assistance;With Assistive Device Standing-Static Asssistance Device: Rolling walker Position after Treatment and Safety Handoff Position after therapy session: Bed Details: Call light/ needs within reach Alarms: Bed Alarms Status: Activated and Interfaced with call system Mobility Recommendations for Staff Patient ability: Patient is unsafe to perform out of bed activity unless a therapist is present Cotx required this date d/t patient requiring the skills of two therapists to maximize therapeutic outcomes as well as to maximize safety for both patient and therapists. Upon arrival patient in supine and agreeable to therapy at this time. cleared patient for transfer trials despite low Hgb. Patient assisted to EOB, increased independence noted but still requires CGA at EOB d/t safety concerns. Significant L lateral lean noted d/t pain, patient very limited but encouraged to reach forward and rest arms on RW, decreased c/o pain noted. Tolerated 2 sit to stands from EOB to RW, decreased level of assist noted on second stand. Encouraged patient to trial side steps or one step forward and one step backward, once in standing patient immediately stating I can't before attempting and returned to sitting. Patient very anxious and declining to trial steps at this time. Returned to supine d/t c/o pain and fatigue. Assist required for LE management. Patient remained in supine d/t transport arriving soon to take patient to HD. Patient set up with needs met. Plan to complete family training next session d/t patient insisting on returning home this week. Patient Education Transfer training. Time Start Time: 916 Stop Time: 946 Time Calculation (min): 30 min Charges $Therapeutic Activity: 1 unit -1 unit cotx Continue per POC in collaboration with PT Genevieve Silveiro, CHANO [id number] Cosigned by Cindy Bedolla PT at 06/23/2020 4:31 PM EST Associated attestation - Cindy Bedolla PT - 06/23/2020 4:31 PM EST Cindy Rogers, PT, DPT [id number] * Irasema Mcguire, GEOVANNA - 06/22/2020 10:30 AM EST [facility] [place] Nutrition Progress Note Nutrition Diagnosis: 1. Increased nutrient needs - Continues New Nutrition Diagnosis: No Diet:renal Supplement: none PO Intake: Good Weight: (!) 306 lb (138.8 kg) (06/22/20 0700) Skin Condition: intact Edema:non pitting BLE Labs: Lab Results Component Value Date CREATININE 6.49 (H) 06/22/2020 BUN 27 (H) 06/22/2020 NA 130 (L) 06/22/2020 K 5.2 06/22/2020 CL 93 (L) 06/22/2020 CO2 27 06/22/2020 Lab Results Component Value Date OSMOLALITY 275 (L) 06/22/2020 Lab Results Component Value Date CALCIUM 8.6 06/22/2020 PHOS 5.4 (H) 06/22/2020 GLUCOSE 104 (H) 06/22/2020 Lab Results Component Value Date HGBA1C 6.5 (H) 06/09/2020 Lab Results Component Value Date WBC 4.8 06/22/2020 HGB 6.7 (L) 06/22/2020 HCT 20.4 (L) 06/22/2020 MCV 92.5 06/22/2020 PLT 270 06/22/2020 Component Value Date/Time POCGMD 123 (H) 06/22/2020 0808 POCGMD 119 (H) 06/21/2020 2006 POCGMD 117 (H) 06/21/2020 1729 POCGMD 159 (H) 06/21/2020 1406 POCGMD 153 (H) 06/21/2020 0921 POCGLU 196 04/26/2018 1854 POCGLU 225 (H) 10/08/2017 1232 POCGLU 218 (H) 10/08/2017 1138 POCGLU 167 (H) 10/08/2017 1109 POCGLU 178 (H) 10/08/2017 1004 POCGLU 176 (H) 10/08/2017 0903 Lab Results Component Value Date OTLC21B 15.8 (L) 01/14/2019 Scheduled Meds: ??? carBAMazepine 200 mg Oral Nightly (2099) ??? cycloSPORINE modified 100 mg Oral BID ??? entecavir 0.5 mg Oral Q7 Days ??? epoetin giancarlo-epbx 6,000 Units Intravenous Once per day on Mon ??? gabapentin 100 mg Oral BID ??? guaiFENesin 600 mg Oral BID ??? heparin 5,000 Units Subcutaneous Q8H ??? hydrALAZINE 100 mg Oral 3 times per day ??? insulin glargine 10 Units Subcutaneous Nightly (2099) ??? insulin lispro 0-5 Units Subcutaneous TID AC ??? insulin lispro 6 Units Subcutaneous TID AC ??? lidocaine 1 patch Transdermal Q24H ??? LORazepam 0.5 mg Oral BID ??? melatonin 6 mg Oral Nightly (2099) ??? methocarbamoL 500 mg Oral QID ??? metoprolol tartrate 25 mg Oral BID ??? NIFEdipine 90 mg Oral 2 times per day ??? pantoprazole 40 mg Oral BID ??? QUEtiapine 12.5 mg Oral Nightly (2099) ??? terazosin 10 mg Oral Nightly (2099) ??? vancomycin 1,000 mg Intravenous Once per day on Mon Continuous Infusions: PRN Meds:.acetaminophen, albuterol, bisacodyL, dextrose 50 % in water (D50W) OR dextrose 50 % in water (D50W), glucose, heparin, porcine (PF), heparin, porcine (PF), lidocaine (PF) 2% (20 mg/mL),LORazepam AND LORazepam, oxyCODONE OR oxyCODONE, polyethylene glycol, proMETHazine, senna-docusate, sodium chloride 0.9 % Note:Visited pt, resting in bed and getting ready for HD tx. Said doing ok with renal diet, eating well. Discussed current labs and need for diet restrictions, voiced understanding. Ate well for breakfast this AM. Weekly wt 306# on 06/21 and 06/22, large variance with weekly wts- 06/15 275#, 06/08 245#- DW 124 kg at home, will await HD pre/post wt this date for comparison. Skin intact. FSBS 97-231. This date's labs Na+ 130 low, serum Osm low, K+ 5.2 wnl/high side, PO4 5.4 elevated. N/V 06/19, no complaints this date, BM 06/21. 06/15 Protonix increased. Nutrition Prescription: Food and Nutrition Therapy: continue therapeutic diet to assist with ESRD management. Monitoring: Intake, weight, FSBS and labs Plan of Care:Update/revised Follow Up: 7-[address], LD Phone [phone] [facility] [phone] * Jake Zavala MD - 06/22/2020 10:17 AM EST The [facility] Hospitalist Attending Progress Note Chief Complaint / Reason for Follow-Up Aiden Stauffer Jr. is a 45 y.o. male on hospital day 14. The principal reason for today's follow upvisit is Osteomyelitis ([facility] Dx). Interval History / Subjective Mr. Stauffer feels well and wants to go home. He initially states that he wants to go home this evening, but we worked out that might be a more realistic day. He is OK with that. The physical therapist and I both explained that he isn't safe to manage at home because of deconditioning, but he does not want to continue to stay beyond this week. Today Mr. Baezs hemoglobin is 6.7. Otherwise stable with no new complaints. Past medical, family, and social histories were reviewed as previously documented. Updates were made as necessary. Review of Systems (Focused) Review of Systems Constitutional: Negative for chills and fever. HENT: Negative for congestion and sore throat. Respiratory: Negative for cough, shortness of breath and wheezing. Cardiovascular: Negative for chest pain and palpitations. Gastrointestinal: Negative for abdominal pain, constipation, diarrhea, nausea and vomiting. Musculoskeletal: Negative for back pain and joint pain (R hip). Skin: Negative for itching and rash. Neurological: Negative for dizziness and headaches. Vital Signs Vitals: 06/21/20200106/21/20 2108 06/22/20 0514 06/22/20 0700 BP: 123/71 127/63 BP Location: Right arm Right arm Patient Position: Lying Lying Pulse: 93 96 92 Resp: 18 18 18 Temp: 98.2 ??F (36.8 ??C) 98.5 ??F (36.9 ??C) TempSrc: Oral Oral SpO2: 95% 95% 93% Weight: (!) 306 lb (138.8 kg) Height: Physical Exam Physical Exam Vitals signs and nursing note reviewed. Constitutional: General: He is not in acute distress. Appearance: He is well-developed. He is obese. HENT: Head: Normocephalic and atraumatic. Mouth/Throat: Pharynx: No oropharyngeal exudate. Eyes: General: No scleral icterus. Conjunctiva/sclera: Conjunctivae normal. Cardiovascular: Rate and Rhythm: Normal rate and regular rhythm. Heart sounds: Normal heart sounds. No murmur. Pulmonary: Effort: Pulmonary effort is normal. No respiratory distress. Breath sounds: Normal breath sounds. No wheezing. Abdominal: General: Bowel sounds are normal. There is no distension. Palpations: Abdomen is soft. Tenderness: There is no abdominal tenderness. Skin: General: Skin is warm and dry. Findings: No erythema. Neurological: Mental Status: He is alert and oriented to person, place, and time. Psychiatric: Behavior: Behavior normal. Diagnostic Studies Labs reviewed: renal, LFTs, CRP (47 -> 75 -> 94), ESR (21), glucose trend No imaging today. Assessment & Plan Hospital Problems Principal Problem: Osteomyelitis (CMS Dx) Active Problems: Essential (primary) hypertension Type 2 diabetes mellitus with diabetic chronic kidney disease ([facility] Dx) Immunosuppression for liver transplant (CMS Dx) ESRD (end stage renal disease) ([facility] Dx) Prophylaxis for cytomegalovirus Anemia, unspecified Obstructive sleep apnea Anxiety Right hip pain Hepatitis B carrier ([facility] Dx) Today's Plan * Osteomyelitis ([facility] Dx)- (present on admission) Infectious diseases plans for extended course given immunosuppression. PLAN: ?? Continue vancomycin with dialysis, treat through 07/23/2020 ?? Safety labs weekly ?? Refer for home infusion after discharge Anemia, unspecified- (present on admission) Hemoglobin is 6.7 today. Will transfuse today, if blood is available in time for dialysis. PLAN: ?? Continue epoetin 6000 units Mon/Mon/Mon ?? Prepare 1 unit PRBC ESRD (end stage renal disease) (CMS Dx)- (present on admission) Dialsysis M/W/F. PLAN: ?? Continue dialysis Immunosuppression for liver transplant ([facility] Dx)- (present on admission) The patient is on cyclosporine. Levels were below goal while at [facility]; dose increased. PLAN: ?? Continue cyclosporine 75 mg PO BID ?? Check LFTs and cyclosporine levels every Monday Type 2 diabetes mellitus with diabetic chronic kidney disease (CMS Dx)- (present on admission) Glucose well controlled on current regimen. PLAN: ?? Continue insulin glargine 10 units subcutaneous QHS ?? Continue insulin lispro 6 units subcutaneous QAC ?? Continue insulin lispro correction 0-5 units subcutaneous QAC per low-dose scale ?? Fingersticks QAC/QHS Essential (primary) hypertension- (present on admission) The patient's blood pressure is within goal. BP: 127/63 PLAN: ?? Continue hydralazine 100 mg PO Q8H ?? Continue nifedipine XR 90 mg PO BID ?? Continue metoprolol 25 mg PO BID ?? Continue terazosin 10 mg PO QHS Inpatient Management: ?? Diet: renal ?? IV fluids: none ?? Pain management: acetaminophen, oxycodone ?? Lines: none ?? DVT prophylaxis: heparin (dialysis) ?? Precautions/Isolation: none ?? Ambulation: as tolerated with assistance ?? Restraints: none Ancillary services: PT, OT and Wound Care ?? Patient status: inpatient ?? Code status: Full Code Jake Zavala MD 06/22/2020 11:28 AM * Laurence Mora OT - 06/22/2020 10:03 AM EST Occupational Therapy [facility] Occupational Therapy [facility] Daily Note Name: Aiden Oviedo Eh Parra. : 1975 Attending Physician: Jake Zavala MD Admission Diagnosis: osteomyelitis 05/28/2020 [facility] Date: 06/22/2020 Reviewed Pertinent hospital course: Yes Hospital Course PT/OT: Aiden Ivelisse Eh??is a 45 y.o.??male??with history of liver transplant 2018 secondary to SAL, ESRD on home dialysis 5 days per week, DM who presents with 1 week of back pain, fever and AMS. ??Found to have discitis and epidural abscess on imaging.??Severe sepsis (fever, confusion, leukocytosis, lactic acidosis) in setting of immunosuppression, discitis, epidural abscess. MRIL5/S1 with osteomyelitis/discitis and fluid collection concerning for epidural abscess.??Upon arrival, neurosurgery was consulted. ??He underwent L5 laminectomy, epidural abscess I and D on 04/29 without complication. Precautions: (no restrictions on WBing) Activity Level: Activity as tolerated PT Assessment complete?: Yes OT Assessment complete?: Yes Brief Assessment Assessment: Decreased UE strength, Decreased activity tolerance, Decreased Functional Mobility, Decreased ADL status, Decreased sensation, Decreased self- care transfers, Decreased Balance, Decreased IADLs, Decreased Safe judgment during ADL Prognosis for OT goals: Good Goals Goals to be met in: in 4 weeks (07/10) Patient stated goal: to go home Patient will complete supine to sit in prep for ADLs: Independent(in 4 weeks (07/10)) Patient will complete functional chair transfer: Contact Guard assistance(in 4 weeks (07/10)) Patient will complete toilet transfer: Contact Guard assistance(in 4 weeks (07/10)) Patient will complete toileting: Stand-by assistance(in 4 weeks (07/10)) Patient will complete upper body dressing: Independent(in 4 weeks (07/10)) Patient will complete lower body dressing: Minimal assistance(in 4 weeks (07/10)) Patient will complete upper body bathing : Modified Independent(in 4 weeks (07/10)) Patient will complete lower body bathing : Stand-by assistance(in 4 weeks (07/10)) Pt Will participate in upper extremity HEP to prep for ADLs: : ongoing Miscellaneous Goal #1: Pt will ambulate household distances with RW and CGA Mcfp Goal : Pt will increase score on Dylon Index by 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 to be met in: 6 weeks Collaborated with: Patient Recommendation Plan Treatment Interventions: ADL retraining, UE strengthening/ROM, Compensatory technique education, Lower Extremity Intervention, Equipment eval/education, Activity Tolerance training, Therapeutic Activity, Neuro muscular reeducation, Energy Conservation, Functional transfer training, Excercise OT Frequency: minimum 3x/week Recommendation Recommendation: Short-term skilled OT Equipment Recommendations: Bedside commode Cognition Overall Cognitive Status: Within Functional Limits Arousal/Alertness: Alert Behavior: Cooperative;Apprehensive;Appropriate(apprehensive with mobility stating I can't do it before attempting) Following Commands: Follows multistep commands Safety Judgment: Decreased safety awareness;Impaired judgment Insight: Demonstrated decreased insght into limitations and abilites to complete ADls safely Pain Pain Score: 0-No pain Mobility Bed Mobility Rolling: Supervision(Supervision with handrail; SBA to the L with no handrail to simulate home setup) Supine to Sit: Stand-by assistance;head of bed elevated;increased time to complete task;use of handrail Sit to Supine: increased time to complete task;head of bed flat;Moderate assistance(to lift LEs into bed) Functional Transfers Sit to Stand: (Lucrecia x 1 with CGA of another progressing to CGA x2; from elevated surface (EOB with bed raised) up to RW) Bed to Chair: (Not completed d/t pt needing to be in bed to go to dialysis following therapy session) Balance Sitting - Static: Contact Guard assistance Standing - Static: Contact Guard Assistance;With Assistive Device Standing-Static Asssistance Device: Rolling walker Exercises Exercises General Exercises: OT offered BLE ROM prior to initiating mobility: x 10 reps with BLEs- hip and knee flexion/extension, plantar/dorsiflexion, and hip IR/ER ADL Lower Body Dressing: Total assistance Lower Body Dressing Deficit: Don/doff L sock;Don/doff R sock Location Assessed LE Dressing: Supine in bed Lower Body Dressing Deficit Additonal Comments: Don/doff socks Position after Treatment and Safety Handoff Position after therapy session: Bed Details: Call light/ needs within reach Alarms: Bed Alarms Status: Unchanged from previous setting Patient Education: Concerns re: pt discharging home at this time AMA based on current level of function; safety with transfers; use of RW; bed mobility with no handrail to simulate home environment. Pt receptive to information but would benefit from reinforcement. Pt seen as cotx with PT this date to safely advance mobility. OT offered BLE ROM with pt in supine and MANAGER RECRUITING then arrived to room. Pt transferred to sitting EOB; pt moving impulsively at first while attempting to find a position of comfort to alleviate R hip pain thereby requiring CGA for balance with B knees blocked. With encouragement, pt completed 2 reps of STS up to RW with less assist on his second attempt. However, when cued to take side steps, pt stated I can't do it and returned self tositting at EOB. Per MD, pt ok to get up to chair with low Hgb, but OOB deferred and instead facilitated return to supine d/t pt scheduled to leave for dialysis soon after therapy. Pt verbalized clearintent to return home this week (possibly today); provided max education regarding OT's safety concerns re: pt going home at his current functional level. Pt verbalized understanding but continued tostate same intent; interdisciplinary team aware. Pt would benefit from ongoing OT services to maximize safety and functional independence. Time Start Time: 900 Stop Time: 945 Time Calculation (min): 45 min Charges $Therapeutic Exercise: (-1 unit d/t cotx with PT) $Therapeutic Activity: 23-37 mins LLOYD Hassan, OTR/L License Number: [id number] [facility] M-F 7:30-4:00 * Kelsie Scanlon, PharmD - 06/22/2020 9:28 AM EST Images from the original note were not included. . Clinical Pharmacy Service - Vancomycin Progress Note Aiden Stauffer Jr. is a 45 y.o. male on vancomycin. Pharmacy consulted by the primary team to manage vancomycin dosing. Current Anti-Infectives Dose Frequency Start End entecavir (BARACLUDE) tablet 0.5 mg 0.5 mg Every 7 days 06/09/2020 Admin Instructions: ADMINISTER ON EMPTY STOMACH (2 HOURS BEFORE OR AFTER MEALS).
LEVEL 2 HAZARDOUS MEDICATION Route: Oral vancomycin (VANCOCIN) 1,000 mg in sodium chloride 0.9% 250 mL ADDaptor IVPB 1,000 mg Every Monday, Monday, Monday06/12/2020 07/23/2020 Admin Instructions: Please give dose after dialysis
Use ADDaptor product - Mix Thoroughly Before Administration Route: Intravenous Wt Readings from Last 3 Encounters: 06/22/20 (!) 306 lb (138.8 kg) 06/07/20 (!) 251 lb 15.8 oz (114.3 kg) 03/16/20 (!) 278 lb (126.1 kg) WBC, BUN, Creatinine (Last 7 days) WBC BUN Creatinine 4.8 10E3/uL 06/22/20 0515 27 mg/dL 06/22/20 0515 6.49 mg/dL 06/22/20 0515 5.9 10E3/uL 06/19/20 0602 29 mg/dL 06/19/20 0602 5.97 mg/dL 06/19/20 0602 4.3 10E3/uL 06/16/20 0555 20 mg/dL 06/17/20 1220 3.60 mg/dL 06/17/20 1220 Lab Results (Last 7 days) Vanc Tr 16.4 ug/mL 06/22/20 0515 17.6 ug/mL 06/19/20 0602 15.6 ug/mL 06/17/20 0544 Microbiology Results No orders found from 06/15/2020 to 06/23/2020. Current SCr: 6.49 mg/dL Patient received Hemodialysis every MWF Pertinent allergies: None pertinent Indication: Osteomyelitis/discitis/epidural abscess Goal Trough: 15-20 mg/L (pre-HD level may be 15-25) Tentative stop date: 07/23/20 per ID at [facility] Assessment and Plan ?? Patient is being treated with vancomycin for Osteomyelitis/discitis/epidural abscess ?? Currently receiving vancomycin 1000 mg during the last hour of dialysis every MWF ?? Vancomycin level drawn before dialysis is therapeutic at 16.4 mcg/mL ?? Continue current vancomycin dose at 1000 mg during the last hour of dialysis every MWF ?? Check next vancomycin level prior to hemodialysis session on 06/24/20 and every MWF ?? Pharmacy will continue to monitor therapy for efficacy and toxicity Thank you for the consult KELSIE SCANLON PharmD 06/22/2020 9:28 AM Phone: [phone] For clinical pharmacy assistance after 4pm or on weekends, please call [phone] * Elli Rodriguez RRT - 06/21/2020 10:57 PM EST 06/21/202107 Oxygen Therapy/Pulse Ox O2 Device Nasal Cannula (Pt declined the use of CPAP @ the bedside. Notified.) O2 Therapy Oxygen FiO2 28 % O2 Flow Rate (L/min) 2 L/min SpO2 95 % $Oximetry Spot Check Charge Y Breath Sounds Bilateral Breath Sounds Clear;Diminished R Breath Sounds Clear;Diminished L Breath Sounds Clear;Diminished * Jessica Dennis RN - 06/21/2020 1:52 PM EST Patient reminded to order lunch tray. Pt to notify this RN when tray arrives. * Yessy Molina MD - 06/21/2020 10:12 AM EST Hospitalist Progress Note 06/21/2020 10:12 AM Aiden Stauffer Jr. LOS: 13 days HPI; Principal Problem: Osteomyelitis ([facility] Dx) Active Problems: Essential (primary) hypertension Type 2 diabetes mellitus with diabetic chronic kidney disease (CMS Dx) Immunosuppression for liver transplant (CMS Dx) ESRD (end stage renal disease) ([facility] Dx) Prophylaxis for cytomegalovirus Anemia, unspecified Esophageal candidiasis ([facility] Dx) Obstructive sleep apnea Anxiety Right hip pain Hepatitis B carrier (CMS Dx) Dialysis AV fistula malfunction ([facility] Dx) Subjective & Interval History; Patient wants mucinex tab. Does not like the syrup. Still has some cough with congestion. Continuesto have right hip pain. Review of Systems: Constitutional: negative for fevers,chills, malaise and sweats Respiratory: negative for SOB., cough. Cardiovascular: negative for chest pressure/discomfort, irregular heart beat and orthopnea Gastrointestinal: negative for diarrhea, jaundice,. Genitourinary: denies any dysuria. Hematology; No mucosal Bleeding, No petechiae. Musculoskeletal: negative for back pain and stiff joints. + right hip pain. Neurological: negative for headaches, seizures, speech problems and tremors Allergic/Immunologic: negative for anaphylaxis and angioedema . Skin; No rash Psychiatric; No anxiety, No depression, Normal Affect. PMH: Unchanged from H&P. PSH: Unchanged from H&P. Family medical history: Unchanged from H&P. Social history: Unchanged from H&P Scheduled Meds: ??? carBAMazepine 200 mg Oral Nightly (2099) ??? cycloSPORINE modified 100 mg Oral BID ??? entecavir 0.5 mg Oral Q7 Days ??? epoetin giancarlo-epbx 6,000 Units Intravenous Once per day on Mon ??? gabapentin 100 mg Oral BID ??? guaiFENesin 600 mg Oral BID ??? heparin 5,000 Units Subcutaneous Q8H ??? hydrALAZINE 100 mg Oral 3 times per day ??? insulin glargine 10 Units Subcutaneous Nightly (2099) ??? insulin lispro 0-5 Units Subcutaneous TID AC ??? insulin lispro 6 Units Subcutaneous TID AC ??? lidocaine 1 patch Transdermal Q24H ??? LORazepam 0.5 mg Oral BID ??? melatonin 6 mg Oral Nightly (2099) ??? methocarbamoL 500 mg Oral QID ??? metoprolol tartrate 25 mg Oral BID ??? NIFEdipine 90 mg Oral 2 times per day ??? pantoprazole 40 mg Oral BID ??? QUEtiapine 12.5 mg Oral Nightly (2099) ??? terazosin 10 mg Oral Nightly (2099) ??? vancomycin 1,000 mg Intravenous Once per day on Mon Continuous Infusions: PRN Meds:acetaminophen, albuterol, bisacodyL, dextrose 50 % in water (D50W) OR dextrose 50 % inwater (D50W), glucose, heparin, porcine (PF), heparin, porcine (PF), lidocaine (PF) 2% (20 mg/mL), LORazepam AND LORazepam, oxyCODONE OR oxyCODONE, polyethylene glycol, proMETHazine, senna-docusate, sodium chloride 0.9 % Objective: Vital signs in last 24 hours: Temp: [97.9 ??F (36.6 ??C)-98.4 ??F (36.9 ??C)] 98 ??F (36.7 ??C) Heart Rate: [89-99] 93 Resp: [18] 18 BP: (115-130)/(61-73) 115/64 FiO2: [28 %] 28 % Physical Examination: GENERAL: The patient is awake, alert, oriented x 3 and not in acute cardiorespiratory distress. HEENT: Atraumatic. Normocephalic. PERRLA, EOMI. No icterus, no pallor, no jugular venous distention. NECK: Supple. Trachea is in midline. CHEST: Symmetric. Clear to auscultation, bilateral equal air entry. CARDIOVASCULAR: S1, S2, Regular pulse. No murmur or gallops. No JVD. ABDOMEN: Soft, nontender, nondistended, positive bowel sounds. No viscera palpable. EXTREMITIES: There is no edema in the lower extremities. Skin; No bruise, No rash. No petechiae. SOFTWARE ASSET MANAGER; CN II-XII grossly intact. No focal neurological deficit. Intake/Output last 3 shifts: I/O last 3 completed shifts: In: 1100 [P.O.:1100] Out: 0 Recent Labs; @SLAB@ Lab Results Component Value Date INR 1.2 (H) 06/08/2020 INR 1.3 (H) 06/05/2020 INR 1.3 (H) 06/04/2020 PROTIME 14.9 06/08/2020 PROTIME 16.8 (H) 06/05/2020 PROTIME 16.5 (H) 06/04/2020 ABG; Lab Results Component Value Date PHART 7.39 05/30/2020 PCO2 48 (H) 05/30/2020 PO2ART 65 (L) 05/30/2020 [id number] 29 (H) 05/30/2020 BEART 3.5 (H) 05/30/2020 [id number] 90.1 (L) 05/30/2020 Last Culture and Gram Stain; Lab Results Component Value Date LABGRAM Many Polymorphonuclear Leukocytes Seen 06/03/2020 LABGRAM Rare Gram Positive Cocci In Pairs; 06/03/2020 ISO2 Scant Growth (A) 10/25/2017 ISO2 Pseudomonas fluorescens (A) 10/25/2017 ISO2 Identified by MALDI-TOF MS (A) 10/25/2017 ISO2 Testing Performed at Laboratory (A) 10/25/2017 Diet; Diet Orders Diet renal starting at 06/18 1442 Future Appointments Date Time Provider Department Center 07/01/2020 2:30 PM Ravi Biswas MD [facility] Assessment/Plan: 45-year-old male with history of liver transplant in 2017 secondary to nonalcoholic hepatic steatosis, HTN, DM2, obesity, JC , GERD and Pulm HTN and ESRD on hemodialysis 5 days per week, diabetes admitted to [facility] with a complaint of back pain associated with fever and altered mental status. He wasfound to have discitis and epidural abscess. He underwent L5 laminectomy and incision and drainage of epidural abscess on April 29 without complications. Vancomycin as recommended by infectious disease to be continued with hemodialysis. Patient is on fluconazole for esophageal Candidiasis. Osteomyelitis/Epidural abscess (CMS Dx) (05/28/2020), on extended course of antibiotic therapy given immunosuppression Maintain vancomycin with dialysis through July 23 Monitor weekly safety labs Essential (primary) hypertension (11/12/2019), stable Maintain hydralazine, metoprolol and nifedipine Type 2 diabetes mellitus with diabetic chronic kidney disease (CMS Dx) (11/12/2019), stable Continue Lantus 10 units at bedtime with 6 units of Humalog with meals along with sliding scale. Titrate as needed Immunosuppression for liver transplant (CMS Dx) (10/31/2017) Cyclosporine level is low, increased dose 100 mg twice a day yesterday. Discussed with transplant pharmacist and transplant academy education director. Recheck level on monday ESRD (end stage renal disease) (CMS Dx) (09/13/2018) On hemodialysis 5 times weekly at home, 3 time a week here (MWF) Renal diet Check BMP in am Esophageal candidiasis/hx of upper GI bleed ([facility] Dx) (06/08/2020) Maintain fluconazole 200 mg by mouth daily PPI bid Obstructive sleep apnea (06/08/2020) CPAP QHS, Hepatitis B carrier (CMS Dx) (06/14/2020) On Entecavir by mouth weekly Patient continues to have right hip pain. He is refusing to work with physical therapy. Consider MRI if pain does not resolve soon. ?? Diet: Renal ?? IV fluids: None ?? Pain management: tylenol, oxycodone, gabapentin ?? Lines/tubes: AV fistula left forearm ?? Precautions/Isolation: none ?? Ambulation: as tolerated ?? Restraints: None ?? Ancillary services: PT, OT, wound care ?? Patient status: inpatient Prophylaxis; GI Prophylaxis: Pantoprazole DVT Prophylaxis: Subcutaneous Heparin Code Status: Full Code Yessy Molina MD. Pager # [phone]. * Hawa Toscano, RICARDO - 06/20/2020 11:18 PM EST Pt declined CPAP for HS. Dr. Soriano notified. * Jessica Dennis RN - 06/20/2020 6:29 PM EST Patient denied c/o pain or discomfort. PRN Miralax given per pt request. Pt's here to visit this afternoon, gave pt a full bed bath. * Yessy Molina MD - 06/20/2020 10:05 AM EST Hospitalist Progress Note 06/20/2020 10:05 AM Aiden Stauffer Jr. LOS: 12 days HPI; Principal Problem: Osteomyelitis ([facility] Dx) Active Problems: Essential (primary) hypertension Type 2 diabetes mellitus with diabetic chronic kidney disease ([facility] Dx) Immunosuppression for liver transplant ([facility] Dx) ESRD (end stage renal disease) (CMS Dx) Prophylaxis for cytomegalovirus Anemia, unspecified Esophageal candidiasis (CMS Dx) Obstructive sleep apnea Anxiety Right hip pain Hepatitis B carrier (CMS Dx) Dialysis AV fistula malfunction (CMS Dx) Subjective & Interval History; Patient was resting comfortably. He woke up and stated that he has some nasal and throat congestion. Denies any fever, chills, nausea and vomiting. Review of Systems: Constitutional: negative for fevers,chills, malaise and sweats Respiratory: negative for SOB., cough. Cardiovascular: negative for chest pressure/discomfort, irregular heart beat and orthopnea . Gastrointestinal: negative for diarrhea, jaundice,. Genitourinary: denies any dysuria. Hematology; No mucosal Bleeding, No petechiae. Musculoskeletal: negative for back pain and stiff joints. + right hip pain. Neurological: negative for headaches, seizures, speech problems and tremors Allergic/Immunologic: negative for anaphylaxis and angioedema . Skin; No rash Psychiatric; No anxiety, No depression, Normal Affect. PMH: Unchanged from H&P. PSH: Unchanged from H&P. Family medical history: Unchanged from H&P. Social history: Unchanged from H&P Scheduled Meds: ??? carBAMazepine 200 mg Oral Nightly (2099) ??? cycloSPORINE modified 100 mg Oral BID ??? entecavir 0.5 mg Oral Q7 Days ??? epoetin giancarlo-epbx 6,000 Units Intravenous Once per day on Mon ??? gabapentin 100 mg Oral BID ??? guaiFENesin 600 mg Oral BID ??? heparin 5,000 Units Subcutaneous Q8H ??? hydrALAZINE 100 mg Oral 3 times per day ??? insulin glargine 10 Units Subcutaneous Nightly (2099) ??? insulin lispro 0-5 Units Subcutaneous TID AC ??? lidocaine 1 patch Transdermal Q24H ??? LORazepam 0.5 mg Oral BID ??? melatonin 6 mg Oral Nightly (2099) ??? methocarbamoL 500 mg Oral QID ??? metoprolol tartrate 25 mg Oral BID ??? NIFEdipine 90 mg Oral 2 times per day ??? pantoprazole 40 mg Oral BID ??? QUEtiapine 12.5 mg Oral Nightly (2099) ??? terazosin 10 mg Oral Nightly (2099) ??? vancomycin 1,000 mg Intravenous Once per day on Mon Continuous Infusions: PRN Meds:acetaminophen, albuterol, bisacodyL, dextrose 50 % in water (D50W) OR dextrose 50 % inwater (D50W), glucose, heparin, porcine (PF), heparin, porcine (PF), lidocaine (PF) 2% (20 mg/mL), LORazepam AND LORazepam, oxyCODONE OR oxyCODONE, polyethylene glycol, proMETHazine, senna-docusate, sodium chloride 0.9 % Objective: Vital signs in last 24 hours: Temp: [98 ??F (36.7 ??C)-99 ??F (37.2 ??C)] 98.5 ??F (36.9 ??C) Heart Rate: [63-106] 105 Resp: [14-17] 16 BP: (114-131)/(51-75) 122/53 FiO2: [28 %] 28 % Physical Examination: GENERAL: The patient is awake, alert, oriented x 3 and not in acute cardiorespiratory distress. HEENT: Atraumatic. Normocephalic. PERRLA, EOMI. No icterus, no pallor, no jugular venous distention. NECK: Supple. Trachea is in midline. CHEST: Symmetric. Clear to auscultation, bilateral equal air entry. CARDIOVASCULAR: S1, S2, Regular pulse. No murmur or gallops. No JVD. ABDOMEN: Soft, nontender, nondistended, positive bowel sounds. No viscera palpable. EXTREMITIES: There is no edema in the lower extremities. Skin; No bruise, No rash. No petechiae. SOFTWARE ASSET MANAGER; CN II-XII grossly intact. No focal neurological deficit. Intake/Output last 3 shifts: I/O last 3 completed shifts: In: 1200 [P.O.:1200] Out: - Recent Labs; @SLAB@ Lab Results Component Value Date INR 1.2 (H) 06/08/2020 INR 1.3 (H) 06/05/2020 INR 1.3 (H) 06/04/2020 PROTIME 14.9 06/08/2020 PROTIME 16.8 (H) 06/05/2020 PROTIME 16.5 (H) 06/04/2020 ABG; Lab Results Component Value Date PHART 7.39 05/30/2020 PCO2 48 (H) 05/30/2020 PO2ART 65 (L) 05/30/2020 [id number] 29 (H) 05/30/2020 BEART 3.5 (H) 05/30/2020 [id number] 90.1 (L) 05/30/2020 Last Culture and Gram Stain; Lab Results Component Value Date LABGRAM Many Polymorphonuclear Leukocytes Seen 06/03/2020 LABGRAM Rare Gram Positive Cocci In Pairs; 06/03/2020 ISO2 Scant Growth (A) 10/25/2017 ISO2 Pseudomonas fluorescens (A) 10/25/2017 ISO2 Identified by MALDI-TOF MS (A) 10/25/2017 ISO2 Testing Performed at Laboratory (A) 10/25/2017 Diet; Diet Orders Diet renal starting at 06/18 1442 Future Appointments Date Time Provider Department Center 07/01/2020 2:30 PM Ravi Biswas MD [facility] Assessment/Plan: 45-year-old male with history of liver transplant in 2018 secondary to nonalcoholic hepatic steatosis, HTN, DM2, obesity, JC , GERD and Pulm HTN and ESRD on hemodialysis 5 days per week, diabetes admitted to [facility] with a complaint of back pain associated with fever and altered mental status. He wasfound to have discitis and epidural abscess. He underwent L5 laminectomy and incision and drainage of epidural abscess on April 29 without complications. Vancomycin as recommended by infectious disease to be continued with hemodialysis. Patient is on fluconazole for esophageal Candidiasis. Osteomyelitis/Epidural abscess (CMS Dx) (05/28/2020), on extended course of antibiotic therapy given immunosuppression Maintain vancomycin with dialysis through July 23 Monitor weekly safety labs Essential (primary) hypertension (11/12/2019), stable Maintain hydralazine, metoprolol and nifedipine Type 2 diabetes mellitus with diabetic chronic kidney disease (CMS Dx) (11/12/2019), stable Continue Lantus 10 units at bedtime with 6 units of Humalog with meals along with sliding scale. Titrate as needed Immunosuppression for liver transplant (CMS Dx) (10/31/2017) Cyclosporine level is low, increased dose 100 mg twice a day yesterday. Discussed with transplant pharmacist and transplant academy education director. ESRD (end stage renal disease) (CMS Dx) (09/13/2018) On hemodialysis 5 times weekly at home, 3 time a week here (MWF) Renal diet Underwent hemodialysis yesterday without any issues Esophageal candidiasis/hx of upper GI bleed ([facility] Dx) (06/08/2020) Maintain fluconazole 200 mg by mouth daily PPI bid Obstructive sleep apnea (06/08/2020) CPAP QHS, Hepatitis B carrier ([facility] Dx) (06/14/2020) On Entecavir by mouth weekly 3 days of mucinex for nasal congestion ?? Diet: Renal ?? IV fluids: None ?? Pain management: tylenol, oxycodone, gabapentin ?? Lines/tubes: AV fistula left forearm ?? Precautions/Isolation: none ?? Ambulation: as tolerated ?? Restraints: None ?? Ancillary services: PT, OT, wound care ?? Patient status: inpatient Prophylaxis; GI Prophylaxis: Pantoprazole DVT Prophylaxis: Subcutaneous Heparin Code Status: Full Code Yessy Molina MD. Pager # [phone]. * Elli Rodriguez RRT - 06/19/2020 10:18 PM EST 06/19/20 2210 Oxygen Therapy/Pulse Ox O2 Device Nasal Cannula (Pt declined the use of CPAP @ the bedside. notified.) O2 Therapy Oxygen FiO2 28 % O2 Flow Rate (L/min) 2 L/min SpO2 96 % $Oximetry Spot Check Charge Y Breath Sounds Bilateral Breath Sounds Diminished R Breath Sounds Diminished L Breath Sounds Diminished * LISA Leonardo - 06/19/2020 1:19 PM EST Occupational Therapy [facility] [place] Occupational Therapy Daily Note Name: Aiden Stauffer Jr. : 1975 Attending Physician: Yessy Molina MD Admission Diagnosis: osteomyelitis 05/28/2020 [facility] Date: 06/19/2020 Reviewed Pertinent hospital course: Yes Hospital Course PT/OT: Aiden Stauffer??is a 45 y.o.??male??with history of liver transplant 2018 secondary to SAL, ESRD on home dialysis 5 days per week, DM who presents with 1 week of back pain, fever and AMS. ??Found to have discitis and epidural abscess on imaging.??Severe sepsis (fever, confusion, leukocytosis, lactic acidosis) in setting of immunosuppression, discitis, epidural abscess. MRIL5/S1 with osteomyelitis/discitis and fluid collection concerning for epidural abscess.??Upon arrival, neurosurgery was consulted. ??He underwent L5 laminectomy, epidural abscess I and D on 04/29 without complication. Precautions: (no restrictions on WBing) Activity Level: Activity as tolerated PT Assessment complete?: Yes OT Assessment complete?: Yes Brief Assessment Assessment: Decreased UE strength, Decreased activity tolerance, Decreased Functional Mobility, Decreased ADL status, Decreased sensation, Decreased self- care transfers, Decreased Balance, Decreased IADLs, Decreased Safe judgment during ADL Prognosis for OT goals: Good Goals Goals to be met in: in 4 weeks (07/10) Patient stated goal: to go home Patient will complete supine to sit in prep for ADLs: Independent(in 4 weeks (07/10)) Patient will complete functional chair transfer: Contact Guard assistance(in 4 weeks (07/10)) Patient will complete toilet transfer: Contact Guard assistance(in 4 weeks (07/10)) Patient will complete toileting: Stand-by assistance(in 4 weeks (07/10)) Patient will complete upper body dressing: Independent(in 4 weeks (07/10)) Patient will complete lower body dressing: Minimal assistance(in 4 weeks (07/10)) Patient will complete upper body bathing : Modified Independent(in 4 weeks (07/10)) Patient will complete lower body bathing : Stand-by assistance(in 4 weeks (07/10)) Pt Will participate in upper extremity HEP to prep for ADLs: : ongoing Miscellaneous Goal #1: Pt will ambulate household distances with RW and CGA Mcfp Goal : Pt will increase score on Dylon Index by 5 points by 07/21 skilled nursing goal to be met in: 6 weeks Collaborated with: Patient Recommendation Plan Treatment Interventions: ADL retraining, UE strengthening/ROM, Compensatory technique education, Lower Extremity Intervention, Equipment eval/education, Activity Tolerance training, Therapeutic Activity, Neuro muscular reeducation, Energy Conservation, Functional transfer training, Excercise OT Frequency: minimum 3x/week Recommendation Recommendation: Short-term skilled OT Cognition Overall Cognitive Status: Impaired Cognitive Assessment: Arousal/ Alertness Arousal/Alertness: Alert Orientation Level: Oriented to person;Oriented to place Behavior: Appropriate;Confused Following Commands: Follows one step commands Safety Judgment: Impaired judgment Pain Pain Score: 10-Worst pain ever Pain Location: Back Pain Descriptors: Aching;Discomfort Pain Intervention(s): Medication (See eMAR);Repositioned Mobility Bed Mobility Supine to Sit: Moderate assistance;of 2 people Sit to Supine: Stand-by assistance Transfers Sit to Stand: Contact Guard assistance;Minimal assistance;of 2 people;up to assistive device Bed to Chair: (pt refused) Balance Sitting - Static: Stand-by assistance Sitting - Dynamic: Contact Guard Assistance Standing - Static: Contact Guard Assistance;With Assistive Device ADL Lower Body Dressing: Total assistance(socks only) Position after Treatment and Safety Handoff Position after therapy session: Bed Details: RN present;Call light/ needs within reach Alarms: Bed Alarms Status: Activated and Interfaced with call system Patient Education: Importance of OOB Time Start Time: 899 Stop Time: 926 Time Calculation (min): 27 min Charges $Therapeutic Activity: 23-37 mins Pt supine upon arrival, increased confusion noted this date; RN and MD notified. Pt seen as co tx this date as pt requiring the skills of two therapists to maximize therapeutic outcomes as well as tomaximize safety for both pt and therapists. Increased assist for sup to sit secondary to confusion.Pt sat EOB x 10 min with minimal participation in activity or exercise. Pt agreeable to one stand needing CGA/Min A x 2 with cueing for technique. Pt stood x ~2 min however declined to get to recliner chair despite max encouragement. Pt returned supine and positioned in bed for comfort, needs met and in reach, bed alarm active; RN in room, notified. Continue per POC in collaboration with OTR/L LISA Leonardo Cosigned by Darling Carvajal OT at 06/30/2020 8:18 AM EST Associated attestation - Darling Carvajal OT - 06/30/2020 8:18 AM EST Darlingivan Russell, OTR/L [id number] * Barbara Jay RN - 06/19/2020 1:03 PM EST Patient continue to be in hemodialysis. * Barbara Jay RN - 06/19/2020 11:44 AM EST Patient continue to be in hemodialysis. * Yessy Molina MD - 06/19/2020 10:51 AM EST Hospitalist Progress Note 06/19/2020 10:49 AM Aiden Stauffer Jr. LOS: 11 days HPI; Principal Problem: Osteomyelitis (CMS Dx) Active Problems: Essential (primary) hypertension Type 2 diabetes mellitus with diabetic chronic kidney disease (CMS Dx) Immunosuppression for liver transplant (CMS Dx) ESRD (end stage renal disease) (CMS Dx) Prophylaxis for cytomegalovirus Anemia, unspecified Esophageal candidiasis (CMS Dx) Obstructive sleep apnea Anxiety Right hip pain Hepatitis B carrier (CMS Dx) Dialysis AV fistula malfunction (CMS Dx) Subjective & Interval History; Patient reports right hip pain. He does not want to work with physical therapy today. Review of Systems: Constitutional: negative for fevers,chills, malaise and sweats Respiratory: negative for SOB., cough. Cardiovascular: negative for chest pressure/discomfort, irregular heart beat and orthopnea . Gastrointestinal: negative for diarrhea, jaundice,. Genitourinary: denies any dysuria. Hematology; No mucosal Bleeding, No petechiae. Musculoskeletal: negative for back pain and stiff joints. + right hip pain. Neurological: negative for headaches, seizures, speech problems and tremors Allergic/Immunologic: negative for anaphylaxis and angioedema . Skin; No rash Psychiatric; No anxiety, No depression, Normal Affect. PMH: Unchanged from H&P. PSH: Unchanged from H&P. Family medical history: Unchanged from H&P. Social history: Unchanged from H&P Scheduled Meds: ??? carBAMazepine 200 mg Oral Nightly (2099) ??? cycloSPORINE modified 75 mg Oral BID ??? entecavir 0.5 mg Oral Q7 Days ??? epoetin giancarlo-epbx 6,000 Units Intravenous Once per day on Mon ??? fluconazole 200 mg Oral Daily 0900 ??? gabapentin 100 mg Oral BID ??? heparin 5,000 Units Subcutaneous Q8H ??? hydrALAZINE 100 mg Oral 3 times per day ??? insulin glargine 10 Units Subcutaneous Nightly (2099) ??? insulin lispro 0-5 Units Subcutaneous TID AC ??? lidocaine 1 patch Transdermal Q24H ??? LORazepam 0.5 mg Oral BID ??? melatonin 6 mg Oral Nightly (2099) ??? methocarbamoL 500 mg Oral QID ??? metoprolol tartrate 25 mg Oral BID ??? NIFEdipine 90 mg Oral 2 times per day ??? pantoprazole 40 mg Oral BID ??? QUEtiapine 12.5 mg Oral Nightly (2099) ??? terazosin 10 mg Oral Nightly (2099) ??? vancomycin 1,000 mg Intravenous Once per day on Mon Continuous Infusions: PRN Meds:acetaminophen, albuterol, bisacodyL, dextrose 50 % in water (D50W) OR dextrose 50 % inwater (D50W), glucose, heparin, porcine (PF), heparin, porcine (PF), lidocaine (PF) 2% (20 mg/mL), LORazepam AND LORazepam, oxyCODONE OR oxyCODONE, polyethylene glycol, proMETHazine, senna-docusate, sodium chloride 0.9 % Objective: Vital signs in last 24 hours: Temp: [98 ??F (36.7 ??C)-99 ??F (37.2 ??C)] 98.9 ??F (37.2 ??C) Heart Rate: [90-104] 90 Resp: [16-18] 16 BP: (103-125)/(54-85) 103/85 FiO2: [21 %-28 %] 28 % Physical Examination: GENERAL: The patient is awake, alert, oriented x 3 and not in acute cardiorespiratory distress. HEENT: Atraumatic. Normocephalic. PERRLA, EOMI. No icterus, no pallor, no jugular venous distention. No ear or nose discharge. NECK: Supple. Trachea is in midline. CHEST: Symmetric. Clear to auscultation, bilateral equal air entry. CARDIOVASCULAR: S1, S2, Regular pulse. No murmur or gallops. No JVD. ABDOMEN: Soft, nontender, nondistended, positive bowel sounds. No viscera palpable. EXTREMITIES: There is no edema in the lower extremities. Skin; No bruise, No rash. No petechiae. SOFTWARE ASSET MANAGER; CN II-XII grossly intact. No focal neurological deficit. Intake/Output last 3 shifts: I/O last 3 completed shifts: In: 1080 [P.O.:1080] Out: 400 [Other:400] Recent Labs; @SLAB@ Lab Results Component Value Date INR 1.2 (H) 06/08/2020 INR 1.3 (H) 06/05/2020 INR 1.3 (H) 06/04/2020 PROTIME 14.9 06/08/2020 PROTIME 16.8 (H) 06/05/2020 PROTIME 16.5 (H) 06/04/2020 ABG; Lab Results Component Value Date PHART 7.39 05/30/2020 PCO2 48 (H) 05/30/2020 PO2ART 65 (L) 05/30/2020 [id number] 29 (H) 05/30/2020 BEART 3.5 (H) 05/30/2020 [id number] 90.1 (L) 05/30/2020 Last Culture and Gram Stain; Lab Results Component Value Date LABGRAM Many Polymorphonuclear Leukocytes Seen 06/03/2020 LABGRAM Rare Gram Positive Cocci In Pairs; 06/03/2020 ISO2 Scant Growth (A) 10/25/2017 ISO2 Pseudomonas fluorescens (A) 10/25/2017 ISO2 Identified by MALDI-TOF MS (A) 10/25/2017 ISO2 Testing Performed at Laboratory (A) 10/25/2017 Diet; Diet Orders Diet renal starting at 06/18 1442 Future Appointments Date Time Provider Department Center 07/01/2020 2:30 PM Ravi Biswas MD [facility] Assessment/Plan: 45-year-old male with history of liver transplant in 2018 secondary to nonalcoholic hepatic steatosis, HTN, DM2, obesity, JC , GERD and Pulm HTN and ESRD on hemodialysis 5 days per week, diabetes admitted to [facility] with a complaint of back pain associated with fever and altered mental status. He wasfound to have discitis and epidural abscess. He underwent L5 laminectomy and incision and drainage of epidural abscess on April 29 without complications. Vancomycin as recommended by infectious disease to be continued with hemodialysis. Patient is on fluconazole for esophageal Candidiasis. Osteomyelitis/Epidural abscess (CMS Dx) (05/28/2020), on extended course of antibiotic therapy given immunosuppression Maintain vancomycin with dialysis through July 23 Monitor weekly safety labs Essential (primary) hypertension (11/12/2019), stable Maintain hydralazine, metoprolol and nifedipine Type 2 diabetes mellitus with diabetic chronic kidney disease (CMS Dx) (11/12/2019), stable Continue Lantus 10 units at bedtime with 8 units of Humalog with meals along with sliding scale. Titrate as needed Immunosuppression for liver transplant (CMS Dx) (10/31/2017) Maintain cyclosporine ESRD (end stage renal disease) (CMS Dx) (09/13/2018) On hemodialysis 5 times weekly at home, 3 time a week here (MWF) Renal diet Esophageal candidiasis/hx of upper GI bleed (CMS Dx) (06/08/2020) Maintain fluconazole 200 mg by mouth daily PPI bid Hb is 7.3 today Obstructive sleep apnea (06/08/2020) CPAP QHS, Anxiety (06/09/2020), stable On lorazepam Hepatitis B carrier (CMS Dx) (06/14/2020) On Entecavir by mouth weekly AV fistula malfunction. Resolved For dialysis today lidocaine patch for right hip ?? Diet: Renal ?? IV fluids: None ?? Pain management: tylenol, oxycodone, gabapentin ?? Lines/tubes: AV fistula left forearm ?? Precautions/Isolation: none ?? Ambulation: as tolerated ?? Restraints: None ?? Ancillary services: PT, OT, wound care ?? Patient status: inpatient Prophylaxis; GI Prophylaxis: Pantoprazole DVT Prophylaxis: Subcutaneous Heparin Code Status: Full Code Yessy Molina MD. Pager # [phone]. * Barbara Jay RN - 06/19/2020 10:32 AM EST Transporter arrived to the unit to transfer patient to hemodialysis. Upon assessing patient's status for transfer patient alert and oriented, requested prn ativan and prn oxycodone for anxiety and pain to the right hip. New orders to Lidocaine patch for right hip pain applied after educating patient on new orders and educated on medications patch. Patient verbalized understanding. Weight obtain, and patient transferred off unit and appeared to be stable. * Nicole Dunaway, PT - 06/19/2020 9:32 AM EST Physical Therapy Treatment and Co-treatment Name: Aiden Stauffer Jr. : 1975 Attending Physician: Yessy Molina MD Admission Diagnosis: osteomyelitis 05/28/2020 [facility] Date: 06/19/2020 Reviewed Pertinent hospital course: Yes Hospital Course PT/OT: Aiden Stauffer??is a 45 y.o.??male??with history of liver transplant 2018 secondary to SAL, ESRD on home dialysis 5 days per week, DM who presents with 1 week of back pain, fever and AMS. ??Found to have discitis and epidural abscess on imaging.??Severe sepsis (fever, confusion, leukocytosis, lactic acidosis) in setting of immunosuppression, discitis, epidural abscess. MRIL5/S1 with osteomyelitis/discitis and fluid collection concerning for epidural abscess.??Upon arrival, neurosurgery was consulted. ??He underwent L5 laminectomy, epidural abscess I and D on 04/29 without complication. Precautions: (no restrictions on WBing) Activity Level: Activity as tolerated PT Assessment complete?: Yes OT Assessment complete?: Yes Assessment Assessment: Impaired Bed Mobility, Impaired Transfers, Impaired Gait, Impaired Balance, Impaired Strength, Impaired Safety Awareness, Impaired Sensation, Impaired Motor Control, Impaired Stair Negotiation, Impaired Activity Tolerance, Deconditioning Prognosis: Good Goals Met Goals Met: None Goals Goals to be met by: 07/07/20 Patient will transition from supine to sit: Modified Independent, without bedrails, HOB flat(by 07/07/20.) Patient will transfer from sit to stand: Stand-By assistance, up to assistive device(to RW by 07/07/20.) Patient will transfer bed/chair: Minimal assistance(by 06/23/20.) Patient will ambulate: (150' with RW and CGA by 07/07/20.) Patient will go up / down stairs: Contact Guard assistance(4 steps with 1 railing by 07/07/20.) Patient will sit edge of bed: Modified Independent(while performing UE activity by 06/23/20.) Patient will stand: Stand-By assistance, with assistive device(x 2 mins by 07/07/20.) Stand Assistive Device: Rolling walker Miscellaneous Goal #1: (Pt will increase score on FIST by 6 points by 07/07/20.) Miscellaneous Goal #2: (Pt will be indepedent with HEP for LE strengthening by 07/07/20.) Recommendation Plan Treatment/Interventions: LE strengthening/ROM, Endurance training, Patient/family training, Equipment eval/education, Gait training, Stair Training, Neuromuscular Reeducation, Therapeutic Activity, Therapeutic Exercise, Wheelchair Mobility PT Frequency: minimum 3x/week Recommendation Recommendation: Short-term skilled PT Equipment Recommended: Defer until further assessment Problem List Patient Active Problem List Diagnosis [...] Discitis ??? Allergy, unspecified, initial encounter ??? Esophageal candidiasis (CMS Dx) ??? Obstructive sleep apnea ??? Anxiety ??? Right hip pain ??? Hepatitis B carrier (CMS Dx) ??? Dialysis AV fistula malfunction (CMS Dx) Past Medical History Past Medical [...] TIPS PROCEDURE 10/2016 ??? TIPS Revision 04/2017 Cognition: Overall Cognitive Status: Impaired Cognitive Assessment: Arousal/ Alertness Arousal/Alertness: Alert Orientation Level: Oriented to person;Oriented to place Behavior: Appropriate;Confused Following Commands: Follows one step commands Safety Judgment: Impaired judgment Pain: Pain Score: 7 Pain Location: Back Pain Descriptors: Aching;Discomfort Pain Intervention(s): Repositioned; RN in room for medication Mobility: Bed Mobility Supine to Sit: Moderate assistance;of 2 people Sit to Supine: Stand-by assistance Transfers Sit to Stand: Contact Guard assistance;Minimal assistance;of 2 people;up to assistive device Bed to Chair: (pt refused) Balance Sitting - Static: Stand-by assistance Sitting - Dynamic: Contact Guard Assistance Standing - Static: Contact Guard Assistance;With Assistive Device Exercise: Sit<-->stand x 1 from EOB; stood x ~2 min with CGA at RW Position after Treatment and Safety Handoff Position after therapy session: Bed Details: RN present;Call light/ needs within reach Alarms: Bed Alarms Status: Activated and Interfaced with call system Mobility Recommendations for Staff Patient ability: Patient is unsafe to perform out of bed activity unless a therapist is present Patient Education Pt educated on benefits of getting up to chair Pt supine upon arrival, increased confusion noted this date; RN and MD notified. Pt was seen with OT due to increased assistance needed with functional mobility. Pt t/f supine-->sit; sat EOB x 10 min with minimal participation in activity or exercise; sit<-->Stand to RW with CGA/Min A x 2;pt stood x ~2 min however declined to get to recliner chair despite max encouragement. Pt returned supine and positioned in bed for comfort, needs met and in reach, bed alarm active; RN in room, MD notified. Progress with standing and gait as tolerated. Time Start Time: 899 Stop Time: 926 Time Calculation (min): 27 min Charges $Therapeutic Activity: 2 units(27 min) Nicole Dunaway PT, DPT #[id number] * Barbara Jay RN - 06/19/2020 9:27 AM EST Patient alert and oriented times 4, denies needs, or pain. Patient requested MD to arrive and discharge him to home, refusing therapy. MD notified and arrived to room. Safety/fall precaution in place. Plan explained and plan of care continue. * Maru Lovett PharmD - 06/19/2020 9:13 AM EST Images from the original note were not included. Clinical Pharmacy Service - Vancomycin Progress Note Aiden Stauffer Jr. is a 45 y.o. male on vancomycin. Pharmacy consulted by the primary team to manage vancomycin dosing. Current Anti-Infectives Dose Frequency Start End entecavir (BARACLUDE) tablet 0.5 mg 0.5 mg Every 7 days 06/09/2020 Admin Instructions: ADMINISTER ON EMPTY STOMACH (2 HOURS BEFORE OR AFTER MEALS).
LEVEL 2 HAZARDOUS MEDICATION Route: Oral fluconazole (DIFLUCAN) tablet 200 mg 200 mg Daily 06/09/2020 06/20/2020 Route: Oral vancomycin (VANCOCIN) 1,000 mg in sodium chloride 0.9% 250 mL ADDaptor IVPB 1,000 mg Every Monday, Monday, Monday06/12/2020 07/23/2020 Admin Instructions: Please give dose after dialysis
Use ADDaptor product - Mix Thoroughly Before Administration Route: Intravenous Wt Readings from Last 3 Encounters: 06/15/20 (!) 274 lb 14.4 oz (124.7 kg) 06/07/20 (!) 251 lb 15.8 oz (114.3 kg) 03/16/20 (!) 278 lb (126.1 kg) WBC, BUN, Creatinine (Last 7 days) WBC BUN Creatinine 5.9 10E3/uL 06/19/20 0602 29 mg/dL 06/19/20 0602 5.97 mg/dL 06/19/20 0602 4.3 10E3/uL 06/16/20 0555 20 mg/dL 06/17/20 1220 3.60 mg/dL 06/17/20 1220 6.9 10E3/uL 06/15/20 0538 19 mg/dL 06/16/20 0555 4.71 mg/dL 06/16/20 0555 Lab Results (Last 7 days) Vanc Tr 17.6 ug/mL 06/19/20 0602 15.6 ug/mL 06/17/20 0544 15.9 ug/mL 06/15/20 0538 Microbiology Results No orders found from 06/12/2020 to 06/20/2020. Current SCr: 5.97 mg/dL today 06/19/20 (prior to HD) Patient received Hemodialysis every MWF Pertinent allergies: None pertinent Indication: osteomyelitis/discitis/epidural abscess Goal Trough: 15-20 mg/L (pre-HD level may be 15-25) Tentative stop date: 07/23/20 per ID at [facility] Assessment and Plan ?? Patient is being treated with vancomycin for osteomyelitis/discitis/epidural abscess ?? Currently receiving vancomycin 1000 mg during the last hour of dialysis every MWF ?? Vancomycin level drawn before dialysis is therapeutic at 17.6 mg/L ?? Continue current vancomycin dose at 1000 mg during the last hour of dialysis every MWF ?? Check next vancomycin level prior to hemodialysis session on 06/22/20 and every MWF. ?? Pharmacy will continue to monitor therapy for efficacy and toxicity Thank you for the consult Maru Lovett PharmD 06/19/2020 9:13 AM For clinical pharmacy assistance after 4pm or on weekends, please call [phone] * Rosalia Bianchi, HERBOLOGIST - 06/19/2020 7:59 AM EST 06/19/20 0759 Oxygen Therapy/Pulse Ox O2 Device Nasal Cannula O2 Therapy Oxygen FiO2 28 % O2 Flow Rate (L/min) 2 L/min SpO2 92 % $Oxygen Timber Cruiser Charge Yes $Oximetry Spot Check Charge Y pt found on RA SpO2 84% and placed on 2LNC * Barbara Jay RN - 06/18/2020 3:39 PM EST Patient returned from outside appointment and per MD do not given 1300 Heparin injections and givennext dose at 2100. * Genevieve Silverio PTA - 06/18/2020 3:21 PM EST Physical Therapy Reason Patient Not Seen Name: Aiden Stauffer : 1975 Attending Physician: Yessy Molina MD Admission Diagnosis: osteomyelitis 05/28/2020 [facility] Date: 06/18/2020 Precautions: Precautions: (no restrictions on WBing) Reviewed Pertinent hospital course: Yes Unable to see patient due to: Out of hospital appointment, will follow up as schedule allows. Time of attempt: 10:05 Continue per POC in collaboration with PT Genevieve Silverio PTA [id number] Cosigned by Cindy Bedolla PT at 06/19/2020 2:53 PM EST Associated attestation - Cindy Bedolla PT - 06/19/2020 2:53 PM EST Cindy Rogers, PT, DPT [id number] * LISA Leonardo - 06/18/2020 2:46 PM EST Occupational Therapy Reason Patient Not Seen Name: Aiden Stauffer Jr. : 1975 Attending Physician: Yessy Molina MD Admission Diagnosis: osteomyelitis 05/28/2020 [facility] Date: 06/18/2020 Precautions: Precautions: (no restrictions on WBing) Reviewed Pertinent hospital course: Yes Unable to see patient due to: Pt out of building for fistula repair. Will follow up next scheduled tx session. Continue per POC in collaboration with OTR/L LISA Leonardo Cosigned by Darling Carvajal OT at 06/18/2020 3:06 PM EST Associated attestation - Darling Carvajal OT - 06/18/2020 3:06 PM EST KODAK Harp/Margaret [id number] * Yessy Molina MD - 06/18/2020 10:17 AM EST Hospitalist Progress Note 06/18/2020 10:17 AM Aiden Stauffer Jr. LOS: 10 days HPI; Principal Problem: Osteomyelitis (CMS Dx) Active Problems: Essential (primary) hypertension Type 2 diabetes mellitus with diabetic chronic kidney disease (CMS Dx) Immunosuppression for liver transplant (CMS Dx) ESRD (end stage renal disease) (CMS Dx) Prophylaxis for cytomegalovirus Anemia, unspecified Esophageal candidiasis (CMS Dx) Obstructive sleep apnea Anxiety Right hip pain Hepatitis B carrier (CMS Dx) Dialysis AV fistula malfunction (CMS Dx) Subjective & Interval History; Patient denies any complaints. Scheduled for fistula evaluation today. Denies any hematemesis or melena. Hyperkalemia has improved after dialysis yesterday. Review of Systems: Constitutional: negative for fevers,chills, malaise and sweats Respiratory: negative for SOB., cough. Cardiovascular: negative for chest pressure/discomfort, irregular heart beat and orthopnea . Gastrointestinal: negative for diarrhea, jaundice,. Genitourinary: denies any dysuria. Hematology; No mucosal Bleeding, No petechiae. Musculoskeletal: negative for back pain and stiff joints. Neurological: negative for headaches, seizures, speech problems and tremors Allergic/Immunologic: negative for anaphylaxis and angioedema . Skin; No rash Psychiatric; No anxiety, No depression, Normal Affect. PMH: Unchanged from H&P. PSH: Unchanged from H&P. Family medical history: Unchanged from H&P. Social history: Unchanged from H&P Scheduled Meds: ??? carBAMazepine 200 mg Oral Nightly (2099) ??? cycloSPORINE modified 75 mg Oral BID ??? entecavir 0.5 mg Oral Q7 Days ??? epoetin giancarlo-epbx 6,000 Units Intravenous Once per day on Mon ??? fluconazole 200 mg Oral Daily 0900 ??? gabapentin 100 mg Oral BID ??? heparin 5,000 Units Subcutaneous Q8H ??? hydrALAZINE 100 mg Oral 3 times per day ??? insulin lispro 0-5 Units Subcutaneous TID AC ??? LORazepam 0.5 mg Oral BID ??? melatonin 6 mg Oral Nightly (2099) ??? methocarbamoL 500 mg Oral QID ??? metoprolol tartrate 25 mg Oral BID ??? NIFEdipine 90 mg Oral 2 times per day ??? pantoprazole 40 mg Oral BID ??? QUEtiapine 12.5 mg Oral Nightly (2099) ??? terazosin 10 mg Oral Nightly (2099) ??? vancomycin 1,000 mg Intravenous Once per day on Mon Continuous Infusions: PRN Meds:acetaminophen, albuterol, bisacodyL, dextrose 50 % in water (D50W) OR dextrose 50 % inwater (D50W), glucose, heparin, porcine (PF), heparin, porcine (PF), lidocaine (PF) 2% (20 mg/mL), LORazepam AND LORazepam, oxyCODONE OR oxyCODONE, polyethylene glycol, proMETHazine, senna-docusate, sodium chloride 0.9 % Objective: Vital signs in last 24 hours: Temp: [97.8 ??F (36.6 ??C)-99.2 ??F (37.3 ??C)] 99.2 ??F (37.3 ??C) Heart Rate: [84-109] 104 Resp: [17-18] 18 BP: (121-147)/(63-82) 121/63 FiO2: [21 %] 21 % Physical Examination: GENERAL: The patient is awake, alert, oriented x 3 and not in acute cardiorespiratory distress. HEENT: Atraumatic. Normocephalic. PERRLA, EOMI. No icterus, no pallor, no jugular venous distention. No ear or nose discharge. NECK: Supple. Trachea is in midline. CHEST: Symmetric. Clear to auscultation, bilateral equal air entry. CARDIOVASCULAR: S1, S2, Regular pulse. No murmur or gallops. No JVD. ABDOMEN: Soft, nontender, nondistended, positive bowel sounds. No viscera palpable. EXTREMITIES: There is no edema in the lower extremities. Skin; No bruise, No rash. No petechiae. SOFTWARE ASSET MANAGER; CN II-XII grossly intact. No focal neurological deficit. Intake/Output last 3 shifts: I/O last 3 completed shifts: In: 480 [P.O.:480] Out: 400 [Other:400] Recent Labs; @SLAB@ Lab Results Component Value Date INR 1.2 (H) 06/08/2020 INR 1.3 (H) 06/05/2020 INR 1.3 (H) 06/04/2020 PROTIME 14.9 06/08/2020 PROTIME 16.8 (H) 06/05/2020 PROTIME 16.5 (H) 06/04/2020 ABG; Lab Results Component Value Date PHART 7.39 05/30/2020 PCO2 48 (H) 05/30/2020 PO2ART 65 (L) 05/30/2020 [id number] 29 (H) 05/30/2020 BEART 3.5 (H) 05/30/2020 [id number] 90.1 (L) 05/30/2020 Last Culture and Gram Stain; Lab Results Component Value Date LABGRAM Many Polymorphonuclear Leukocytes Seen 06/03/2020 LABGRAM Rare Gram Positive Cocci In Pairs; 06/03/2020 ISO2 Scant Growth (A) 10/25/2017 ISO2 Pseudomonas fluorescens (A) 10/25/2017 ISO2 Identified by MALDI-TOF MS (A) 10/25/2017 ISO2 Testing Performed at Laboratory (A) 10/25/2017 Diet; Diet Orders Diet NPO past midnight Except for: for procedure starting at 06/17 3551 Future Appointments Date Time Provider Department Center 07/01/2020 2:30 PM Ravi Biswas MD [facility] Assessment/Plan: 45-year-old male with history of liver transplant in 2018 secondary to nonalcoholic hepatic steatosis, HTN, DM2, obesity, JC , GERD and Pulm HTN and ESRD on hemodialysis 5 days per week, diabetes admitted to [facility] with a complaint of back pain associated with fever and altered mental status. He wasfound to have discitis and epidural abscess. He underwent L5 laminectomy and incision and drainage of epidural abscess on April 29 without complications. Vancomycin as recommended by infectious disease to be continued with hemodialysis. Patient is on fluconazole for esophageal Candidiasis. Osteomyelitis/Epidural abscess (CMS Dx) (05/28/2020), on extended course of antibiotic therapy given immunosuppression Maintain vancomycin with dialysis through July 23 Monitor weekly safety labs Essential (primary) hypertension (11/12/2019), stable Maintain hydralazine, metoprolol and nifedipine Type 2 diabetes mellitus with diabetic chronic kidney disease (CMS Dx) (11/12/2019), stable Continue Lantus 10 units at bedtime with 8 units of Humalog with meals along with sliding scale. Titrate as needed Immunosuppression for liver transplant (CMS Dx) (10/31/2017) Maintain cyclosporine ESRD (end stage renal disease) (CMS Dx) (09/13/2018) On hemodialysis 5 times weekly at home, 3 time a week here (MWF) Renal diet Esophageal candidiasis/hx of upper GI bleed (CMS Dx) (06/08/2020) Maintain fluconazole 200 mg by mouth daily PPI bid Check CBC in am tomorrow Obstructive sleep apnea (06/08/2020) CPAP QHS, noted he refused last night. Anxiety (06/09/2020), stable On lorazepam Hepatitis B carrier (CMS Dx) (06/14/2020) On Entecavir by mouth weekly AV fistula malfunction. Possible thrombosis Possible intervention today. ?? Diet: Renal ?? IV fluids: None ?? Pain management: tylenol, oxycodone, gabapentin ?? Lines/tubes: AV fistula left forearm ?? Precautions/Isolation: none ?? Ambulation: as tolerated ?? Restraints: None ?? Ancillary services: PT, OT, wound care ?? Patient status: inpatient Prophylaxis; GI Prophylaxis: Pantoprazole DVT Prophylaxis: Subcutaneous Heparin Code Status: Full Code Yessy Molina MD. Pager # [phone]. * Yana Bianchi RN - 06/18/2020 6:04 AM EST Patient medicated for pain with Oxycodone 10 mg/Ativan 0.5 mg PO at request. Side rails up x 2 withHOB elevated, bed is in lock position, call light is in reach. Patient he aware that he has an outside appointment, and to be picked up at 0930. * Dayana Marie RRT - 06/18/2020 2:05 AM EST Patient continues to decline both his home CPAP and the hospital unit. Dr. Ventura notified. * Genevieve Silverio PTA - 06/17/2020 3:52 PM EST Physical Therapy Reason Patient Not Seen Name: Aiden Stauffer Jr. : 1975 Attending Physician: Yessy Molina MD Admission Diagnosis: osteomyelitis 05/28/2020 [facility] Date: 06/17/2020 Precautions: Precautions: (no restrictions on WBing) Reviewed Pertinent hospital course: Yes Unable to see patient due to: Patient off unit for HD at time of scheduled treatment, will follow up as schedule allows. Time of attempt: 13:00 Continue per POC in collaboration with PT Genevieve Silverio PTA [id number] Cosigned by Cindy Bedolla PT at 06/19/2020 2:53 PM EST Associated attestation - Cindy Bedolla PT - 06/19/2020 2:53 PM EST Cindy Rogers, PT, DPT [id number] * Yessy Molina MD - 06/17/2020 10:16 AM EST Hospitalist Progress Note 06/17/2020 10:19 AM Aiden Stauffer Jr. LOS: 9 days HPI; Principal Problem: Osteomyelitis (CMS Dx) Active Problems: Essential (primary) hypertension Type 2 diabetes mellitus with diabetic chronic kidney disease (CMS Dx) Immunosuppression for liver transplant (CMS Dx) ESRD (end stage renal disease) ([facility] Dx) Prophylaxis for cytomegalovirus Anemia, unspecified Esophageal candidiasis (CMS Dx) Obstructive sleep apnea Anxiety Right hip pain Hepatitis B carrier (CMS Dx) Subjective & Interval History; Patient reports that he is feeling great today. He denies any hematemesis or melena. Had more pain yesterday but it had come down now. He is hoping to go home Monday if he is not progressing in therapy. Review of Systems: Constitutional: negative for fevers,chills, malaise and sweats Respiratory: negative for SOB., cough. Cardiovascular: negative for chest pressure/discomfort, irregular heart beat and orthopnea . Gastrointestinal: negative for diarrhea, jaundice,. Genitourinary: denies any dysuria. Hematology; No mucosal Bleeding, No petechiae. Musculoskeletal: negative for back pain and stiff joints. Neurological: negative for headaches, seizures, speech problems and tremors Allergic/Immunologic: negative for anaphylaxis and angioedema . Skin; No rash Psychiatric; No anxiety, No depression, Normal Affect. PMH: Unchanged from H&P. PSH: Unchanged from H&P. Family medical history: Unchanged from H&P. Social history: Unchanged from H&P Scheduled Meds: ??? carBAMazepine 200 mg Oral Nightly (2099) ??? carbamide peroxide 5 drop Left Ear BID ??? cycloSPORINE modified 75 mg Oral BID ??? entecavir 0.5 mg Oral Q7 Days ??? epoetin giancarlo-epbx 6,000 Units Intravenous Once per day on Mon ??? fluconazole 200 mg Oral Daily 0900 ??? gabapentin 100 mg Oral BID ??? heparin 5,000 Units Subcutaneous Q8H ??? hydrALAZINE 100 mg Oral 3 times per day ??? insulin glargine 10 Units Subcutaneous Nightly (2099) ??? insulin lispro 0-5 Units Subcutaneous TID AC ??? insulin lispro 8 Units Subcutaneous TID AC ??? LORazepam 0.5 mg Oral BID ??? melatonin 6 mg Oral Nightly (2099) ??? methocarbamoL 500 mg Oral QID ??? metoprolol tartrate 25 mg Oral BID ??? NIFEdipine 90 mg Oral 2 times per day ??? pantoprazole 40 mg Oral BID ??? QUEtiapine 12.5 mg Oral Nightly (2099) ??? terazosin 10 mg Oral Nightly (2099) ??? vancomycin 1,000 mg Intravenous Once per day on Mon Continuous Infusions: PRN Meds:acetaminophen, albuterol, bisacodyL, dextrose 50 % in water (D50W) OR dextrose 50 % inwater (D50W), glucose, lidocaine (PF) 2% (20 mg/mL), LORazepam AND LORazepam, oxyCODONE OR oxyCODONE, polyethylene glycol, proMETHazine, senna-docusate, sodium chloride 0.9 % Objective: Vital signs in last 24 hours: Temp: [98.2 ??F (36.8 ??C)-99.1 ??F (37.3 ??C)] 98.2 ??F (36.8 ??C) Heart Rate: [86-105] 86 Resp: [18] 18 BP: (125-157)/(62-68) 130/65 FiO2: [21 %-28 %] 28 % Physical Examination: GENERAL: The patient is awake, alert, oriented x 3 and not in acute cardiorespiratory distress. HEENT: Atraumatic. Normocephalic. PERRLA, EOMI. No icterus, no pallor, no jugular venous distention. No ear or nose discharge. NECK: Supple. Trachea is in midline. CHEST: Symmetric. Clear to auscultation, bilateral equal air entry. CARDIOVASCULAR: S1, S2, Regular pulse. No murmur or gallops. No JVD. ABDOMEN: Soft, nontender, nondistended, positive bowel sounds. No viscera palpable. EXTREMITIES: There is no edema in the lower extremities. Skin; No bruise, No rash. No petechiae. SOFTWARE ASSET MANAGER; CN II-XII grossly intact. No focal neurological deficit. Intake/Output last 3 shifts: I/O last 3 completed shifts: In: 1020 [P.O.:1020] Out: 500 [Other:500] Recent Labs; @SLAB@ Lab Results Component Value Date INR 1.2 (H) 06/08/2020 INR 1.3 (H) 06/05/2020 INR 1.3 (H) 06/04/2020 PROTIME 14.9 06/08/2020 PROTIME 16.8 (H) 06/05/2020 PROTIME 16.5 (H) 06/04/2020 ABG; Lab Results Component Value Date PHART 7.39 05/30/2020 PCO2 48 (H) 05/30/2020 PO2ART 65 (L) 05/30/2020 [id number] 29 (H) 05/30/2020 BEART 3.5 (H) 05/30/2020 [id number] 90.1 (L) 05/30/2020 Last Culture and Gram Stain; Lab Results Component Value Date LABGRAM Many Polymorphonuclear Leukocytes Seen 06/03/2020 LABGRAM Rare Gram Positive Cocci In Pairs; 06/03/2020 ISO2 Scant Growth (A) 10/25/2017 ISO2 Pseudomonas fluorescens (A) 10/25/2017 ISO2 Identified by MALDI-TOF MS (A) 10/25/2017 ISO2 Testing Performed at Laboratory (A) 10/25/2017 Diet; Diet Orders Diet regular liquid thin, renal starting at 06/16 0935 Future Appointments Date Time Provider Department Center 07/01/2020 2:30 PM Ravi Biswas MD [facility] Assessment/Plan: 45-year-old male with history of liver transplant in 2018 secondary to nonalcoholic hepatic steatosis, HTN, DM2, obesity, JC , GERD and Pulm HTN and ESRD on hemodialysis 5 days per week, diabetes admitted to [facility] with a complaint of back pain associated with fever and altered mental status. He wasfound to have discitis and epidural abscess. He underwent L5 laminectomy and incision and drainage of epidural abscess on April 29 without complications. Vancomycin as recommended by infectious disease to be continued with hemodialysis. Patient is on fluconazole for esophageal Candidiasis. Osteomyelitis/Epidural abscess (CMS Dx) (05/28/2020), on extended course of antibiotic therapy given immunosuppression Maintain vancomycin with dialysis through July 23 Monitor weekly safety labs Essential (primary) hypertension (11/12/2019), stable Maintain hydralazine, metoprolol and nifedipine Type 2 diabetes mellitus with diabetic chronic kidney disease (CMS Dx) (11/12/2019), stable Continue Lantus 10 units at bedtime with 8 units of Humalog with meals along with sliding scale. Titrate as needed Immunosuppression for liver transplant (CMS Dx) (10/31/2017) Maintain cyclosporine ESRD (end stage renal disease) ([facility] Dx) (09/13/2018) On hemodialysis 5 times weekly at home, 3 time a week here (MWF) Change diet to renal Esophageal candidiasis/hx of upper GI bleed ([facility] Dx) (06/08/2020) Maintain fluconazole 200 mg by mouth daily PPI bid Hemoglobin is stable , continue to monitor Obstructive sleep apnea (06/08/2020) CPAP QHS, noted he refused last night. Anxiety (06/09/2020), stable On lorazepam Hepatitis B carrier (CMS Dx) (06/14/2020) On Entecavir by mouth weekly Patient is medically stable today. He has no new significant complains Scheduled for dialysis today. Continue observation ?? Diet: Renal ?? IV fluids: None ?? Pain management: tylenol, oxycodone, gabapentin ?? Lines/tubes: tunneled HD cath ?? Precautions/Isolation: none ?? Ambulation: as tolerated ?? Restraints: None ?? Ancillary services: PT, OT, wound care ?? Patient status: inpatient Prophylaxis; GI Prophylaxis: Pantoprazole DVT Prophylaxis: Subcutaneous Heparin Code Status: Full Code Yessy Molina MD. Pager # [phone]. * Tana Marques), RXT - 06/17/2020 8:59 AM EST Images from the original note were not included. Clinical Pharmacy Service - Vancomycin Progress Note Aiden Stauffer Jr. is a 45 y.o. male on vancomycin. Pharmacy consulted by the primary team to manage vancomycin dosing. Current Anti-Infectives Dose Frequency Start End entecavir (BARACLUDE) tablet 0.5 mg 0.5 mg Every 7 days 06/09/2020 Admin Instructions: ADMINISTER ON EMPTY STOMACH (2 HOURS BEFORE OR AFTER MEALS).
LEVEL 2 HAZARDOUS MEDICATION Route: Oral fluconazole (DIFLUCAN) tablet 200 mg 200 mg Daily 06/09/2020 06/20/2020 Route: Oral vancomycin (VANCOCIN) 1,000 mg in sodium chloride 0.9% 250 mL ADDaptor IVPB 1,000 mg Every Monday, Monday, Monday06/12/2020 07/23/2020 Admin Instructions: Please give dose after dialysis
Use ADDaptor product - Mix Thoroughly Before Administration Route: Intravenous Wt Readings from Last 3 Encounters: 06/15/20 (!) 274 lb 14.4 oz (124.7 kg) 06/07/20 (!) 251 lb 15.8 oz (114.3 kg) 03/16/20 (!) 278 lb (126.1 kg) WBC, BUN, Creatinine (Last 7 days) WBC BUN Creatinine 4.3 10E3/uL 06/16/20 0555 19 mg/dL 06/16/20 0555 4.71 mg/dL 06/16/20 0555 6.9 10E3/uL 06/15/20 0538 10 mg/dL 06/15/20 1830 2.15 mg/dL 06/15/20 1830 4.2 10E3/uL 06/13/20 0638 35 mg/dL 06/15/20 1414 5.87 mg/dL 06/15/20 1414 Lab Results (Last 7 days) Vanc Tr 15.6 ug/mL 06/17/20 0544 15.9 ug/mL 06/15/20 0538 17.1 ug/mL 06/12/20 0545 Microbiology Results No orders found from 06/10/2020 to 06/18/2020. Pertinent allergies: no antibiotic related allergies Indication: osteomyelitis/discitis/epidural abscess Goal Trough: 15-20 mg/L Tentative stop date: 07/23/20 Assessment and Plan ?? Patient is being treated with vancomycin for osteomyelitis/discitis/epidural abscess ?? Currently receiving vancomycin 1000 mg during the last hour of dialysis on MWF ?? Vancomycin level drawn before dialysis 15.6 mg/L ?? Continue current vancomycin dose at 1000 mg during the last hour of dialysis ?? Check next vancomycin level prior to hemodialysis session on 06/19 ?? Pharmacy will continue to monitor therapy for efficacy and toxicity Thank you for the consult TANA MARQUES), RXT 06/17/2020 8:59 AM For clinical pharmacy assistance after 4pm or on weekends, please call [phone] Cosigned by Vanessa Marcial PharmD at 06/17/2020 9:56 AM EST Associated attestation - Vanessa Marcial PharmD - 06/17/2020 9:56 AM EST I have reviewed the pharmacy sales representative's note and I agree with their recommendations. Any further recommendations or information has been included below. VANESSA MARCIAL PharmD 06/17/2020 9:56 AM * LISA Leonardo - 06/17/2020 8:48 AM EST Occupational Therapy Reason Patient Not Seen Name: Aiden Ivelisse Stauffer Jr. : 1975 Attending Physician: Yessy Molina MD Admission Diagnosis: osteomyelitis 05/28/2020 [facility] Date: 06/18/2020 Precautions: Precautions: (no restrictions on WBing) Reviewed Pertinent hospital course: Yes Unable to see patient due to: -Attempt x 2; pt out to HD 2/2 times. Will follow up next scheduled tx session. Continue per POC in collaboration with MERARYR/L LISA Leonardo Cosigned by Darling Carvajal OT at 06/18/2020 1:26 PM EST Associated attestation - Darling Carvajal OT - 06/18/2020 1:26 PM EST KODAK Harp/Margaret [id number] * Hawa Toscano, HERBOLOGIST - 06/16/2020 11:58 PM EST Pt declined CPAP for HS. Dr. Ventura notified. * Genevieve Silverio, MANAGER RECRUITING - 06/16/2020 4:08 PM EST Physical Therapy Treatment Name: Aiden Oviedo Eh Parra. : 1975 Attending Physician: Yessy Molina MD Admission Diagnosis: osteomyelitis 05/28/2020 [facility] Date: 06/16/2020 Reviewed Pertinent hospital course: Yes Hospital Course PT/OT: Aiden Stauffer??is a 45 y.o.??male??with history of liver transplant 2018 secondary to SAL, ESRD on home dialysis 5 days per week, DM who presents with 1 week of back pain, fever and AMS. ??Found to have discitis and epidural abscess on imaging.??Severe sepsis (fever, confusion, leukocytosis, lactic acidosis) in setting of immunosuppression, discitis, epidural abscess. MRIL5/S1 with osteomyelitis/discitis and fluid collection concerning for epidural abscess.??Upon arrival, neurosurgery was consulted. ??He underwent L5 laminectomy, epidural abscess I and D on 04/29 without complication. Precautions: (no restrictions on WBing) Activity Level: Activity as tolerated PT Assessment complete?: Yes OT Assessment complete?: Yes Assessment Assessment: Impaired Bed Mobility, Impaired Transfers, Impaired Gait, Impaired Balance, Impaired Strength, Impaired Safety Awareness, Impaired Sensation, Impaired Motor Control, Impaired Stair Negotiation, Impaired Activity Tolerance, Deconditioning Prognosis: Good Goals Met Goals Met: None Goals Goals to be met by: 07/07/20 Patient will transition from supine to sit: Modified Independent, without bedrails, HOB flat(by 07/07/20.) Patient will transfer from sit to stand: Stand-By assistance, up to assistive device(to RW by 07/07/20.) Patient will transfer bed/chair: Minimal assistance(by 06/23/20.) Patient will ambulate: (150' with RW and CGA by 07/07/20.) Patient will go up / down stairs: Contact Guard assistance(4 steps with 1 railing by 07/07/20.) Patient will sit edge of bed: Modified Independent(while performing UE activity by 06/23/20.) Patient will stand: Stand-By assistance, with assistive device(x 2 mins by 07/07/20.) Stand Assistive Device: Rolling walker Miscellaneous Goal #1: (Pt will increase score on FIST by 6 points by 07/07/20.) Miscellaneous Goal #2: (Pt will be indepedent with HEP for LE strengthening by 07/07/20.) Recommendation Plan Treatment/Interventions: LE strengthening/ROM, Endurance training, Patient/family training, Equipment eval/education, Gait training, Stair Training, Neuromuscular Reeducation, Therapeutic Activity, Therapeutic Exercise, Wheelchair Mobility PT Frequency: minimum 3x/week Recommendation Recommendation: Short-term skilled PT Equipment Recommended: Defer until further assessment Problem List Patient Active Problem List Diagnosis [...] Discitis ??? Allergy, unspecified, initial encounter ??? Esophageal candidiasis (CMS Dx) ??? Obstructive sleep apnea ??? Anxiety ??? [...] TIPS PROCEDURE 10/2016 ??? TIPS Revision 04/2017 Cognition: Overall Cognitive Status: Within Functional Limits Arousal/Alertness: Alert Orientation Level: Oriented X4 Behavior: Appropriate;Cooperative;Distracted;Perseverating Following Commands: Follows all commands and directions without difficulty;Requires increased time Safety Judgment: Impaired judgment Insight: Demonstrated decreased insght into limitations and abilites to complete ADls safely Pain: Pain Score: 10 Pain Location: R hip/leg Pain Descriptors: Sharp, Aching Pain Intervention(s): Repostioned, Stretching, Rest Therapist reported pain to: RN aware and provided meds Mobility: Bed Mobility Rolling: Supervision;towards the right;towards the left;use of handrail;increased time to complete task Supine to Sit: Minimal assistance;head of bed elevated;use of handrail;increased time to complete task(Min A x1 + CGA x1) Sit to Supine: Moderate assistance;of 2 people;head of bed flat(Mod A for LEs, Min A for trunk) Transfers Sit to Stand: (unable to trial d/t pain) Bed to Chair: Total assistance;of 2 people(via juliet) Balance Sitting - Static: Stand-by assistance Sitting - Dynamic: Contact Guard Assistance Exercise: Therapeutic Exercises Side: bilateral Extremity: lower extremity Type of range of motion: AAROM Supine Exercises: Straight leg raising;Heel slides(Figure 4 Stretch, Single Knee to Chest) Reps/Comments: x5 reps with BLEs HEP Provided: Supine ROM and with yellow theraband resistance: SLR, ankle pumps, hip flex/ext, hip abd/add, heel slides, figure 4 stretch, single knee to chest Position after Treatment and Safety Handoff Position after therapy session: Recliner Details: Call light/ needs within reach Alarms: Chair Alarms Status: Activated and Interfaced with call system Mobility Recommendations for Staff Patient ability: Patient is unsafe to perform out of bed activity unless a therapist is present Cotx required this date d/t patient requiring the skills of two therapists to maximize therapeutic outcomes as well as to maximize safety for both patient and therapists. Upon arrival patient in supine and agreeable to therapy. Reviewed current level of function and progress with patient at this time, extensive education provided on goals for PT. Despite education, patient repeatedly stating thathe feels he is making slow progress and wants to return home and receive Home PT once his antibiotics are completed in July. Educated patient on safety concerns for patient to return home d/t currently requiring 2 person assist for transfers and risk of declining further if he were home without therapy until July. Followed up in afternoon with patient and his , agreeable that sheis unable to care for patient at his current level and would like him walking and transferring withincreased independence before returning home. Patient agreeable to trial standing in // bars or standing frame next session in order to progress to gait trials. Completed PROM and AROM in supine to BLEs, cues for technique and positioning provided throughout. Also performed edema massage prior to attempting sitting at EOB or standing trials. Patient assisted to EOB but unable to tolerate sitting more than 1 min d/t increased pain levels and returned to supine. Completed transfer to recliner viahoyer, patient tolerated without c/o. Patient postioned for comfort and left with needs met. Returned in afternoon to speak with patient's per his request. Also provided HEP for LE stretching and strengthening, patient verbalized understanding of both. Patient also completed stretches to assist with pain, reporting pain in R hip decreased from 10 to 0 with stretches, requires continued reinforcement to perform stretches when in pain. Plan to continue strengthening and transfer training tasks next session. Patient Education HEP, transfers, bed mobility. Time Start Time 1: 0935 Stop Time 1: 1043 Start Time 2: 1421 Stop Time 2: 1459 Start Time 3: 1506 Stop Time 3: 1521 Time Calculation (min): 121 min Charges $Therapeutic Exercise: 8-22 mins $Therapeutic Activity: 4 units -3 units cotx Continue per POC in collaboration with PT Genevieve Silverio, MANAGER RECRUITING [id number] Cosigned by Cindy Bedolla, PT at 06/19/2020 3:43 PM EST Associated attestation - Cindy Bedolla, PT - 06/19/2020 3:43 PM EST Cindy Rogers, PT, DPT [id number] * Laurence Mora, OT - 06/16/2020 4:02 PM EST [facility] Daily Note Name: Aiden Stauffer Jr. : 1975 Attending Physician: Yessy Molina MD Admission Diagnosis: osteomyelitis 05/28/2020 [facility] Date: 06/16/2020 Reviewed Pertinent hospital course: Yes Hospital Course PT/OT: Aiden Stauffer??is a 45 y.o.??male??with history of liver transplant 2018 secondary to SAL, ESRD on home dialysis 5 days per week, DM who presents with 1 week of back pain, fever and AMS. ??Found to have discitis and epidural abscess on imaging.??Severe sepsis (fever, confusion, leukocytosis, lactic acidosis) in setting of immunosuppression, discitis, epidural abscess. MRIL5/S1 with osteomyelitis/discitis and fluid collection concerning for epidural abscess.??Upon arrival, neurosurgery was consulted. ??He underwent L5 laminectomy, epidural abscess I and D on 04/29 without complication. Precautions: (no restrictions on WBing) Activity Level: Activity as tolerated PT Assessment complete?: Yes OT Assessment complete?: Yes Brief Assessment Assessment: Decreased UE strength, Decreased activity tolerance, Decreased Functional Mobility, Decreased ADL status, Decreased sensation, Decreased self- care transfers, Decreased Balance, Decreased IADLs, Decreased Safe judgment during ADL Prognosis for OT goals: Good Goals Goals to be met in: in 4 weeks (07/10) Patient stated goal: to go home Patient will complete supine to sit in prep for ADLs: Independent(in 4 weeks (07/10)) Patient will complete functional chair transfer: Contact Guard assistance(in 4 weeks (07/10)) Patient will complete toilet transfer: Contact Guard assistance(in 4 weeks (07/10)) Patient will complete toileting: Stand-by assistance(in 4 weeks (07/10)) Patient will complete upper body dressing: Independent(in 4 weeks (07/10)) Patient will complete lower body dressing: Minimal assistance(in 4 weeks (07/10)) Patient will complete upper body bathing : Modified Independent(in 4 weeks (07/10)) Patient will complete lower body bathing : Stand-by assistance(in 4 weeks (07/10)) Pt Will participate in upper extremity HEP to prep for ADLs: : ongoing Miscellaneous Goal #1: Pt will ambulate household distances with RW and CGA Pipe Supervisor Goal : Pt will increase score on Dylon Index by 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 to be met in: 6 weeks Collaborated with: Patient Recommendation Plan Treatment Interventions: ADL retraining, UE strengthening/ROM, Compensatory technique education, Lower Extremity Intervention, Equipment eval/education, Activity Tolerance training, Therapeutic Activity, Neuro muscular reeducation, Energy Conservation, Functional transfer training, Excercise OT Frequency: minimum 3x/week Recommendation Recommendation: Short-term skilled OT Cognition Overall Cognitive Status: Within Functional Limits Arousal/Alertness: Alert Behavior: Apprehensive;Perseverating;Distracted;Cooperative Following Commands: Follows one step commands;Requires verbal cues Insight: Demonstrated decreased insght into limitations and abilites to complete ADls safely Pain Pt reported 5/10 R hip pain at SOS but reported he had already received pain meds prior to session (confirmed with RN). Pt reported that pain increased to 8/10 with mobility. Repositioned to comfort at EOS. Mobility Bed Mobility Rolling: Supervision;towards the left;use of handrail;towards the right;increased time to complete task Supine to Sit: Minimal assistance;head of bed elevated;towards the left;increased time to complete task;use of handrail(with CGA of another) Sit to Supine: Minimal assistance;Moderate assistance;of 2 people;head of bed flat(ModA for BLEs; Lucrecia for trunk) Functional Transfers Bed to Chair: Total assistance;of 2 people(via juliet lift) Balance Sitting - Static: Stand-by assistance Exercises Exercises General Exercises: PT/OT offered BLE ROM and massage prior to initiating mobility. ADL Upper Body Dressing: Minimal assistance Upper Body Dressing Deficit: Pull down in back Location Assessed UE Dressing: Supine in bed Upper Body Dressing Deficit Additonal Comments: Reardan gown; donning overhead shirt Lower Body Dressing: (TotalA for donning/doffing socks; Lucrecia for donning pants) Lower Body Dressing Deficit: Don/doff L sock;Don/doff R sock;Thread RLE;Thread LLE;Set-up;Increasedtime to complete Location Assessed LE Dressing: Supine in bed Lower Body Dressing Deficit Additonal Comments: Pt required assist threading pants over BLEs but then able to pull up himself Position after Treatment and Safety Handoff Position after therapy session: Recliner Details: Call light/ needs within reach Alarms: Chair Alarms Status: Activated and Interfaced with call system Information above is how pt was left following first encounter. Patient Education: Benefits of OOB, role of OT and goals for therapy, current functional status. Pt verbalized understanding. Pt supine in bed at SOS, agreeable to therapy. Pt seen as cotx with PT this date due to requiring the skills of two therapists to safely advance mobility and to maximize therapeutic outcomes for pt. Pt requesting information about his functional progress to date, so therapists and pt discussed his current and past functional levels and goals/plan for therapy moving forward. Despite education, pt repeatedly stating that he feels he is making slow progress and that he wants to return home and resume home therapy services once off of antibiotics in July. Educated pt that he is not currently at a level that would allow him to return home safely and that he would get progressively weaker if he discontinues therapy for a month; pt's confirmed this afternoon that she would like him to be walking and more independent before he returns home. Pt agreeable to attempt standing and taking steps in // bars this date in order to progress. Therapists facilitated pt in BLE ROM and massage in prep for mobility but, once seated at EOB, pt returned self to supine within 1min and stated he could not tolerate sitting EOB d/t pain in hip and declined to attempt standing. Pt transferred to recliner via juliet lift and was repositioned to comfort with all needs met/in reach. Returned to room later per pt request in order to speak with his . All parties in agreement that pt's RLE pain is his biggest limiting factor at this time but that pt would benefit from ongoing OT services to maximize functional independence. Pt agreeable to trial standing frame or tilt table in upcoming session for therapists to assess standing posture and tolerance. Time Start Time: 934 Stop Time: 1043 Time Calculation (min): 68 min Start Time 2: 1421 Stop Time 2: 1459 Time: 38min Total Time: 106 min / 7 units Charges $Therapeutic Activity: 38-52 mins(-4 units d/t cotx with PT) LLOYD Hassan, OTR/L License Number: [id number] [facility] M-F 7:30-4:00 * Yessy Molina MD - 06/16/2020 9:34 AM EST Hospitalist Progress Note 06/16/2020 9:33 AM Aiden Stauffer Jr. LOS: 8 days HPI; Principal Problem: Osteomyelitis ([facility] Dx) Active Problems: Essential (primary) hypertension Type 2 diabetes mellitus with diabetic chronic kidney disease (CMS Dx) Immunosuppression for liver transplant (CMS Dx) ESRD (end stage renal disease) ([facility] Dx) Prophylaxis for cytomegalovirus Anemia, unspecified Esophageal candidiasis (CMS Dx) Obstructive sleep apnea Anxiety Right hip pain Hepatitis B carrier (CMS Dx) Subjective & Interval History; Patient denies bringing up any coffee ground material today. Is feeling a lot better. Denies any abdominal pain or discomfort. Has no nausea, vomiting or diarrhea. Review of Systems: Constitutional: negative for fevers,chills, malaise and sweats Respiratory: negative for SOB., cough. Cardiovascular: negative for chest pressure/discomfort, irregular heart beat and orthopnea . Gastrointestinal: negative for diarrhea, jaundice,. Genitourinary: denies any dysuria. Hematology; No mucosal Bleeding, No petechiae. Musculoskeletal:negative for back pain and stiff joints. Neurological: negative for headaches, seizures, speech problems and tremors Allergic/Immunologic: negative for anaphylaxis and angioedema . Skin; No rash Psychiatric; No anxiety, No depression, Normal Affect. PMH: Unchanged from H&P. PSH: Unchanged from H&P. Family medical history: Unchanged from H&P. Social history: Unchanged from H&P Scheduled Meds: ??? carBAMazepine 200 mg Oral Nightly (2099) ??? carbamide peroxide 5 drop Left Ear BID ??? cycloSPORINE modified 75 mg Oral BID ??? entecavir 0.5 mg Oral Q7 Days ??? epoetin giancarlo-epbx 6,000 Units Intravenous Once per day on Mon ??? fluconazole 200 mg Oral Daily 0900 ??? gabapentin 100 mg Oral BID ??? heparin 5,000 Units Subcutaneous Q8H ??? hydrALAZINE 100 mg Oral 3 times per day ??? insulin glargine 10 Units Subcutaneous Nightly (2099) ??? insulin lispro 0-5 Units Subcutaneous TID AC ??? insulin lispro 8 Units Subcutaneous TID AC ??? LORazepam 0.5 mg Oral BID ??? melatonin 6 mg Oral Nightly (2099) ??? methocarbamoL 500 mg Oral QID ??? metoprolol tartrate 25 mg Oral BID ??? NIFEdipine 90 mg Oral 2 times per day ??? pantoprazole 40 mg Oral BID ??? QUEtiapine 12.5 mg Oral Nightly (2099) ??? terazosin 10 mg Oral Nightly (2099) ??? vancomycin 1,000 mg Intravenous Once per day on Mon Continuous Infusions: PRN Meds:acetaminophen, albuterol, bisacodyL, dextrose 50 % in water (D50W) OR dextrose 50 % inwater (D50W), glucose, lidocaine (PF) 2% (20 mg/mL), LORazepam AND LORazepam, oxyCODONE OR oxyCODONE, polyethylene glycol, proMETHazine, senna-docusate, sodium chloride 0.9 % Objective: Vital signs in last 24 hours: Temp: [96.4 ??F (35.8 ??C)-98.7 ??F (37.1 ??C)] 98.2 ??F (36.8 ??C) Heart Rate: [88-104] 104 Resp: [18] 18 BP: (100-128)/(63-74) 128/74 FiO2: [21 %] 21 % Physical Examination: GENERAL: The patient is awake, alert, oriented x 3 and not in acute cardiorespiratory distress. HEENT: Atraumatic. Normocephalic. PERRLA, EOMI. No icterus, no pallor, no jugular venous distention..No ear or nose discharge. NECK: Supple. Trachea is in midline. CHEST: Symmetric. Clear to auscultation, bilateral equal air entry. CARDIOVASCULAR: S1, S2, Regular pulse. No murmur or gallops. No JVD. ABDOMEN: Soft, nontender, nondistended, positive bowel sounds. No viscera palpable. EXTREMITIES: There is no edema in the lower extremities. Pulses are positive in all extremities. Skin; No bruise, No rash. No petechiae. SOFTWARE ASSET MANAGER; CN II-XII grossly intact. No focal neurological deficit. Intake/Output last 3 shifts: I/O last 3 completed shifts: In: 900 [P.O.:900] Out: 1030 [Urine:500; Emesis/NG output:30; Other:500] Recent Labs; @SLAB@ Lab Results Component Value Date INR 1.2 (H) 06/08/2020 INR 1.3 (H) 06/05/2020 INR 1.3 (H) 06/04/2020 PROTIME 14.9 06/08/2020 PROTIME 16.8 (H) 06/05/2020 PROTIME 16.5 (H) 06/04/2020 ABG; Lab Results Component Value Date PHART 7.39 05/30/2020 PCO2 48 (H) 05/30/2020 PO2ART 65 (L) 05/30/2020 [id number] 29 (H) 05/30/2020 BEART 3.5 (H) 05/30/2020 [id number] 90.1 (L) 05/30/2020 Last Culture and Gram Stain; Lab Results Component Value Date LABGRAM Many Polymorphonuclear Leukocytes Seen 06/03/2020 LABGRAM Rare Gram Positive Cocci In Pairs; 06/03/2020 ISO2 Scant Growth (A) 10/25/2017 ISO2 Pseudomonas fluorescens (A) 10/25/2017 ISO2 Identified by MALDI-TOF MS (A) 10/25/2017 ISO2 Testing Performed at Laboratory (A) 10/25/2017 Diet; Diet Orders Diet regular liquid thin starting at 06/09 1227 Future Appointments Date Time Provider Department Center 07/01/2020 2:30 PM Ravi Biswas MD [facility] Assessment/Plan: 45-year-old male with history of liver transplant in 2018 secondary to nonalcoholic hepatic steatosis, HTN, DM2, obesity, JC , GERD and Pulm HTN and ESRD on hemodialysis 5 days per week, diabetes admitted to [facility] with a complaint of back pain associated with fever and altered mental status. He wasfound to have discitis and epidural abscess. He underwent L5 laminectomy and incision and drainage of epidural abscess on April 29 without complications. Vancomycin as recommended by infectious disease to be continued with hemodialysis. Patient is on fluconazole for esophageal Candidiasis. Osteomyelitis/Epidural abscess (CMS Dx) (05/28/2020), on extended course of antibiotic therapy given immunosuppression Maintain vancomycin with dialysis through July 23 Monitor weekly safety labs Essential (primary) hypertension (11/12/2019), stable Maintain hydralazine, metoprolol and nifedipine Type 2 diabetes mellitus with diabetic chronic kidney disease (CMS Dx) (11/12/2019), stable Continue Lantus 10 units at bedtime with 6 units of Humalog with meals along with sliding scale. Titrate as needed Immunosuppression for liver transplant (CMS Dx) (10/31/2017) Maintain cyclosporine ESRD (end stage renal disease) (CMS Dx) (09/13/2018) On hemodialysis 5 times weekly at home, 3 time a week here (MWF) Change diet to renal Esophageal candidiasis/hx of upper GI bleed (CMS Dx) (06/08/2020) Maintain fluconazole 200 mg by mouth daily PPI bid Hemoglobin is stable , continue to monitor Obstructive sleep apnea (06/08/2020) CPAP QHS, noted he refused last night. Anxiety (06/09/2020), stable On lorazepam a Hepatitis B carrier (CMS Dx) (06/14/2020) On Entecavir by mouth weekly Hyperkalemia has resolved after dialysis yesterday Renal diet Monitor CBC ?? Diet: Renal ?? IV fluids: None ?? Pain management: tylenol, oxycodone, gabapentin ?? Lines/tubes: tunneled HD cath ?? Precautions/Isolation: none ?? Ambulation: as tolerated ?? Restraints: None ?? Ancillary services: PT, OT, wound care ?? Patient status: inpatient Prophylaxis; GI Prophylaxis: Pantoprazole DVT Prophylaxis: Subcutaneous Heparin Code Status: Full Code Yessy Molina MD. Pager # [phone]. * Hawa Toscano RRT - 06/16/2020 12:12 AM EST Pt declined CPAP. Dr. Ventura notified. * Jessica Dennis RN - 06/15/2020 6:33 PM EST Patient returned from HD. Lab here. BMP sent. * Jessica Dennis RN - 06/15/2020 4:31 PM EST Call received from lab. Patient with Potassium of 6.9. Call placed to Dr Molina. K* to be recheckedafter HD. Paged Dr Calderon, fitter hand, for return call. * Rose Lozano, PT - 06/15/2020 3:36 PM EST Physical Therapy Treatment Name: Aiden Stauffer Jr. : 1975 Attending Physician: Yessy Molina MD Admission Diagnosis: osteomyelitis 05/28/2020 [facility] Date: 06/15/2020 Reviewed Pertinent hospital course: Yes Hospital Course PT/OT: Aiden Stauffer??is a 45 y.o.??male??with history of liver transplant 2018 secondary to SAL, ESRD on home dialysis 5 days per week, DM who presents with 1 week of back pain, fever and AMS. ??Found to have discitis and epidural abscess on imaging.??Severe sepsis (fever, confusion, leukocytosis, lactic acidosis) in setting of immunosuppression, discitis, epidural abscess. MRIL5/S1 with osteomyelitis/discitis and fluid collection concerning for epidural abscess.??Upon arrival, neurosurgery was consulted. ??He underwent L5 laminectomy, epidural abscess I and D on 04/29 without complication. Precautions: (no restrictions on WBing) Activity Level: Activity as tolerated PT Assessment complete?: Yes OT Assessment complete?: Yes Assessment Assessment: Impaired Bed Mobility, Impaired Transfers, Impaired Gait, Impaired Balance, Impaired Strength, Impaired Safety Awareness, Impaired Sensation, Impaired Motor Control, Impaired Stair Negotiation, Impaired Activity Tolerance, Deconditioning Prognosis: Good Goals Met none Goals Goals to be met by: 07/07/20 Patient will transition from supine to sit: Modified Independent, without bedrails, HOB flat(by 07/07/20.) Patient will transfer from sit to stand: Stand-By assistance, up to assistive device(to RW by 07/07/20.) Patient will transfer bed/chair: Minimal assistance(by 06/23/20.) Patient will ambulate: (150' with RW and CGA by 07/07/20.) Patient will go up / down stairs: Contact Guard assistance(4 steps with 1 railing by 07/07/20.) Patient will sit edge of bed: Modified Independent(while performing UE activity by 06/23/20.) Patient will stand: Stand-By assistance, with assistive device(x 2 mins by 07/07/20.) Stand Assistive Device: Rolling walker Miscellaneous Goal #1: (Pt will increase score on FIST by 6 points by 07/07/20.) Miscellaneous Goal #2: (Pt will be indepedent with HEP for LE strengthening by 07/07/20.) Recommendation Plan Treatment/Interventions: LE strengthening/ROM, Endurance training, Patient/family training, Equipment eval/education, Gait training, Stair Training, Neuromuscular Reeducation, Therapeutic Activity, Therapeutic Exercise, Wheelchair Mobility PT Frequency: minimum 3x/week Recommendation Recommendation: Short-term skilled PT Equipment Recommended: Defer until further assessment Problem List Patient Active Problem List Diagnosis [...] Discitis ??? Allergy, unspecified, initial encounter ??? Esophageal candidiasis (CMS Dx) ??? Obstructive sleep apnea ??? Anxiety ??? [...] TIPS PROCEDURE 10/2016 ??? TIPS Revision 04/2017 Cognition: Overall Cognitive Status: Within Functional Limits Cognitive Assessment: Arousal/ Alertness;Orientation Level;Behavior Arousal/Alertness: Alert Orientation Level: Oriented X4 Behavior: Distracted;Perseverating;Apprehensive Following Commands: Follows one step commands;Requires verbal cues Safety Judgment: Impaired judgment Insight: Demonstrated decreased insght into limitations and abilites to complete ADls safely Pain: Pain Score: 7 Pain Location: back, LEs, stomach Pain Descriptors: Aching;Discomfort Pain Intervention(s): Nsg gave pt meds Mobility: Bed Mobility Supine to Sit: (pt declined all mobility due to nausea and emesis earlier) Exercise: Supine Exercises: Ankle pumps;Quad sets;Gluteal sets;Short arc quads;Heel slides;ABduction/ADduction Reps/Comments: AROM 2x 10 reps each, AAROM R LE AP to inc ROM; rest breaks needed due to nausea andv. cues needed due to pt falling asleep, at times, mid- rep Pt in bed upon arrival with nsg present stating that pt had emesis earlier this am which was coffee- ground in color with MD aware. Nsg stated ok to be seen for therapy and to attempt to get up to recliner. OT present for cotx to maximize safe mobility. Pt declined OOB this date, despite encouragement from PT, OT, nsg and SHADOWGRAPH SCALE OPERATOR. Ten minutes spent educating pt on the importance of therapy and benefit s, but pt continued to decline. Pt agreeable only to bed ex, only, so pt left with OT for UE ex. PTreturned later for LE ex and required encouragement and cues to continue due to perseverating on nausea and having difficulty keeping eyes open. Pt left with needs in reach. Cont with POc. Position after Treatment and Safety Handoff Position after therapy session: Bed Details: Call light/ needs within reach;LE elevated on pillow for decreased heel pressure Alarms: Bed Alarms Status: Unchanged from previous setting Mobility Recommendations for Staff Patient ability: Patient is unsafe to perform out of bed activity unless a therapist is present Patient Education Importance of therapy and getting OOB daily Time Start Time: 1109(and 10:49- 10:59) Stop Time: 1126 Time Calculation (min): 17 min Charges $Therapeutic Exercise: 8-22 mins $Therapeutic Activity: 1 unit Rose Lozano, MPT [id number] * EFREN Leonardo/Margraet - 06/15/2020 1:36 PM EST [facility]ational [facility] Daily Note Name: Aiden Stauffer Jr. : 1975 Attending Physician: Yessy Molina MD Admission Diagnosis: osteomyelitis 05/28/2020 [facility] Date: 06/15/2020 Reviewed Pertinent hospital course: Yes Hospital Course PT/OT: Aiden Stauffer??is a 45 y.o.??male??with history of liver transplant 2018 secondary to SAL, ESRD on home dialysis 5 days per week, DM who presents with 1 week of back pain, fever and AMS. ??Found to have discitis and epidural abscess on imaging.??Severe sepsis (fever, confusion, leukocytosis, lactic acidosis) in setting of immunosuppression, discitis, epidural abscess. MRIL5/S1 with osteomyelitis/discitis and fluid collection concerning for epidural abscess.??Upon arrival, neurosurgery was consulted. ??He underwent L5 laminectomy, epidural abscess I and D on 04/29 without complication. Precautions: (no restrictions on WBing) Activity Level: Activity as tolerated PT Assessment complete?: Yes OT Assessment complete?: Yes Brief Assessment Assessment: Decreased UE strength, Decreased activity tolerance, Decreased Functional Mobility, Decreased ADL status, Decreased sensation, Decreased self- care transfers, Decreased Balance, Decreased IADLs, Decreased Safe judgment during ADL Prognosis for OT goals: Good Goals Goals to be met in: in 4 weeks (07/10) Patient stated goal: to go home Patient will complete supine to sit in prep for ADLs: Independent(in 4 weeks (07/10)) Patient will complete functional chair transfer: Contact Guard assistance(in 4 weeks (07/10)) Patient will complete toilet transfer: Contact Guard assistance(in 4 weeks (07/10)) Patient will complete toileting: Stand-by assistance(in 4 weeks (07/10)) Patient will complete upper body dressing: Independent(in 4 weeks (07/10)) Patient will complete lower body dressing: Minimal assistance(in 4 weeks (07/10)) Patient will complete upper body bathing : Modified Independent(in 4 weeks (07/10)) Patient will complete lower body bathing : Stand-by assistance(in 4 weeks (07/10)) Pt Will participate in upper extremity HEP to prep for ADLs: : ongoing Miscellaneous Goal #1: Pt will ambulate household distances with RW and CGA Mcfp Goal : Pt will increase score on Dylon Index by 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 to be met in: 6 weeks Collaborated with: Patient Recommendation Plan Treatment Interventions: ADL retraining, UE strengthening/ROM, Compensatory technique education, Lower Extremity Intervention, Equipment eval/education, Activity Tolerance training, Therapeutic Activity, Neuro muscular reeducation, Energy Conservation, Functional transfer training, Excercise OT Frequency: minimum 3x/week Recommendation Recommendation: Short-term skilled OT Cognition Overall Cognitive Status: Within Functional Limits Cognitive Assessment: Arousal/ Alertness;Orientation Level;Behavior Arousal/Alertness: Alert Orientation Level: Oriented X4 Behavior: Distracted;Perseverating;Apprehensive Following Commands: Follows one step commands;Requires verbal cues;Requires demonstration Safety Judgment: Decreased safety awareness;Decreased awareness of need for assistance;Impaired judgment Insight: Demonstrated decreased insght into limitations and abilites to complete ADls safely Pain Pain Score: 7 Pain Location: Leg Pain Descriptors: Aching;Discomfort Pain Intervention(s): Medication (See eMAR) Exercises Exercises Gross Upper Body Strengthening: Free Weights(3 LB weight; shoulder flexion/extension, elbow flex/ext, pronation supination, wrist flex/ext) 25 reps each Patient Education: Importance of OOB Time Start Time: 1046 Stop Time: 1110 Time Calculation (min): 24 min Charges $Therapeutic Exercise: 8-22 mins $Therapeutic Activity: 8-22 mins Pt supine in bed upon arrival and agreeable to therapy. OT and PT both into encourage OOB, pt declining OOB therapy despite max encouragement. Pt completing UE therx to increase strength and endurance in prep for functional transfers, IADL, and ADL completion. Pt left with RN in room. Continue per POC in collaboration with LISA Blank Cosigned by Darling Carvajal OT at 06/15/2020 2:25 PM EST Associated attestation - Darling Carvajal, OT - 06/15/2020 2:25 PM EST Darling Russell, OTR/L [id number] * Jessica Dennis RN - 06/15/2020 11:45 AM EST New orders noted in relation to elevated [place], Sched Insulin and sliding scale given early per MD request. Pt sipping on a reg Maritza Malena. * Irasema Mcguire RD - 06/15/2020 9:37 AM EST [facility] [place] Nutrition Progress Note Nutrition Diagnosis: 1. Increased nutrient needs - Continues New Nutrition Diagnosis: No Diet:regular, thin liquids Supplement: none PO Intake: Good Weight: (!) 274 lb 14.4 oz (124.7 kg)(zeroed and reweighed) (06/15/20 0500) Skin Condition: incision to back healed, no skin issues per WCT 06/09 note. Edema:non pitting Labs: Lab Results Component Value Date CREATININE 6.57 (H) 06/15/2020 BUN 30 (H) 06/15/2020 NA 132 (L) 06/15/2020 K 6.5 (H) 06/15/2020 CL 94 (L) 06/15/2020 CO2 29 06/15/2020 Lab Results Component Value Date OSMOLALITY 282 06/15/2020 Lab Results Component Value Date CALCIUM 8.8 06/15/2020 PHOS 6.1 (H) 06/15/2020 GLUCOSE 139 (H) 06/15/2020 Lab Results Component Value Date HGBA1C 6.5 (H) 06/09/2020 Lab Results Component Value Date WBC 6.9 06/15/2020 HGB 7.8 (L) 06/15/2020 HCT 22.8 (L) 06/15/2020 MCV 94.2 06/15/2020 PLT 271 06/15/2020 Component Value Date/Time POCGMD 143 (H) 06/14/2020 2012 POCGMD 152 (H) 06/14/2020 1655 POCGMD 147 (H) 06/14/2020 1117 POCGMD 134 (H) 06/14/2020 0851 POCGMD 136 (H) 06/14/2020 0201 POCGLU 196 04/26/2018 1854 POCGLU 225 (H) 10/08/2017 1232 POCGLU 218 (H) 10/08/2017 1138 POCGLU 167 (H) 10/08/2017 1109 POCGLU 178 (H) 10/08/2017 1004 POCGLU 176 (H) 10/08/2017 0903 Lab Results Component Value Date CSRC65M 15.8 (L) 01/14/2019 Scheduled Meds: ??? carBAMazepine 200 mg Oral Nightly (2099) ??? carbamide peroxide 5 drop Left Ear BID ??? cycloSPORINE modified 75 mg Oral BID ??? entecavir 0.5 mg Oral Q7 Days ??? epoetin giancarlo-epbx 6,000 Units Intravenous Once per day on Mon ??? fluconazole 200 mg Oral Daily 0900 ??? gabapentin 100 mg Oral BID ??? heparin 5,000 Units Subcutaneous Q8H ??? hydrALAZINE 100 mg Oral 3 times per day ??? insulin glargine 10 Units Subcutaneous Nightly (2099) ??? insulin lispro 0-5 Units Subcutaneous TID AC ??? insulin lispro 6 Units Subcutaneous TID AC ??? LORazepam 0.5 mg Oral BID ??? melatonin 6 mg Oral Nightly (2099) ??? methocarbamoL 500 mg Oral QID ??? metoprolol tartrate 25 mg Oral BID ??? NIFEdipine 90 mg Oral 2 times per day ??? pantoprazole 40 mg Oral DAILY 0600 ??? QUEtiapine 12.5 mg Oral Nightly (2099) ??? terazosin 10 mg Oral Nightly (2099) ??? vancomycin 1,000 mg Intravenous Once per day on Mon Continuous Infusions: PRN Meds:.acetaminophen, albuterol, bisacodyL, dextrose 50 % in water (D50W) OR dextrose 50 % in water (D50W), glucose, lidocaine (PF) 2% (20 mg/mL), LORazepam AND LORazepam, oxyCODONE ORoxyCODONE, polyethylene glycol, proMETHazine, senna-docusate, sodium chloride 0.9 % Note:Visited pt, resting in bed. Said doesn't feel well this AM, had coffee ground emesis- MD aware, increased Protonix. Na+ Bicarb x 1 and ordered occult blood test- was given 1 unit PRBC on 06/12. Remains on liberalized diet per pt request. This date's labs reviewed, K+ 6.5, Phos 6.1 elevated. Provided High K+ and Phos food/fluid item sheets for pt to avoid, voiced understanding and said I will these items out . Eating well. Weekly wt 275#, HD post wt 06/12 266#, 06/08 admission wt 245#- CBW more consistent with wt hx/dry weight, continue to monitor at least weekly. Skin intact per WCT. Na+ low 132-will watch trends, may need fluid restriction. FSBS 104-211, Lantus increased and Humalogadded 06/10, Humalog increased 06/13. Mylanta x 1 given 06/14. Nutrition Prescription: Food and Nutrition Therapy: Continue diet as ordered. Educated on limiting high K+ and Phos items with handout. Watch further labs, may need diet restrictions if no improvement with self monitoring. Monitoring: Intake, weight, FSBS and labs Plan of Care:Update/revised Follow Up: 7-[address], LD Phone [phone] ASC[facility] [phone] * Joan Urbina, [facility] - 06/15/2020 8:02 AM EST Images from the original note were not included. Clinical Pharmacy Service - Vancomycin Progress Note Aiden Stauffer is a 45 y.o. male on vancomycin. Pharmacy consulted by the primary team to manage vancomycin dosing. Current Anti-Infectives Dose Frequency Start End entecavir (BARACLUDE) tablet 0.5 mg 0.5 mg Every 7 days 06/09/2020 Admin Instructions: ADMINISTER ON EMPTY STOMACH (2 HOURS BEFORE OR AFTER MEALS).LEVEL 2 HAZARDOUS MEDICATION Route: Oral fluconazole (DIFLUCAN) tablet 200 mg 200 mg Daily 06/09/2020 06/20/2020 Route: Oral vancomycin (VANCOCIN) 1,000 mg in sodium chloride 0.9% 250 mL ADDaptor IVPB 1,000 mg Every Monday, Monday, Monday06/12/2020 07/23/2020 Admin Instructions: Please give dose after dialysisUse ADDaptor product - Mix Thoroughly Before Administration Route: Intravenous Wt Readings from Last 3 Encounters: 06/15/20 (!) 274 lb 14.4 oz (124.7 kg) 06/07/20 (!) 251 lb 15.8 oz (114.3 kg) 03/16/20 (!) 278 lb (126.1 kg) WBC, BUN, Creatinine (Last 7 days) WBC BUN Creatinine 4.2 10E3/uL 06/13/20 0638 30 mg/dL 06/15/20 0538 6.57 mg/dL 06/15/20 0538 5.0 10E3/uL 06/12/20 0545 24 mg/dL 06/12/20 0545 5.96 mg/dL 06/12/20 0545 5.8 10E3/uL 06/10/20 1525 35 mg/dL 06/10/20 1525 7.90 mg/dL 06/10/20 1525 Lab Results (Last 7 days) Vanc Rdm Vanc Tr 18.0 ug/mL 06/09/20 0605 15.9 ug/mL 06/15/20 0538 17.1 ug/mL 06/12/20 0545 15.5 ug/mL 06/10/20 0533 Microbiology Results Date and Time Order Name Sensitivity Status Organisms Specimen ID Source 06/03/2020 0831 Anaerobic culture Final [id number] Back 06/03/2020 0831 Routine Culture plus Stain Final [id number] Back 05/28/2020 1541 #1 Blood culture-Peripheral Final [id number] Peripheral 05/28/2020 1404 #2 Blood culture-Peripheral Final [id number] Peripheral Current SCr: 5.96 mg/dL as of 06/12/20 HD MWF Pertinent allergies: None related to antibiotics Indication: osteomyelitis/discitis/epidural abscess Goal Trough: 15-20 mg/L Tentative stop date: 07/23/20 per ID at [facility] Assessment and Plan ?? Patient is being treated with vancomycin for osteomyelitis/discitis/epidural abscess ?? Currently receiving vancomycin 1000 mg during the last hour of dialysis on MWF ?? Vancomycin level drawn before dialysis is therapeutic at 15.9 mcg/mL ?? Continue current vancomycin dose at 1000 mg during the last hour of dialysis on MWF ?? Check next vancomycin level prior to hemodialysis session on 06/17/20 @ 0600 ?? 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 [place] basin with small amount brown emesis-approx 15 ml. Will inform MD, basin saved to show MD. New basin given. * Yessy Molina MD - 06/15/2020 7:25 AM EST Hospitalist Progress Note 06/15/2020 7:23 AM Aiden Stauffer Jr. LOS: 7 days HPI; Principal Problem: Osteomyelitis (CMS Dx) Active Problems: Essential (primary) hypertension Type 2 diabetes mellitus with diabetic chronic kidney disease (CMS Dx) Immunosuppression for liver transplant (CMS Dx) ESRD (end stage renal disease) (CMS Dx) Prophylaxis for cytomegalovirus Anemia, unspecified Esophageal candidiasis (CMS Dx) Obstructive sleep apnea Anxiety Right hip pain Hepatitis B carrier (CMS Dx) Subjective & Interval History; Patient seen and examined this morning. He is reporting that he is bringing up coffee-ground material. Denies any abdominal pain, diarrhea and hematochezia Review of Systems: Constitutional: negative for fevers,chills, malaise and sweats Respiratory: negative for SOB., cough. Cardiovascular: negative for chest pressure/discomfort, irregular heart beat and orthopnea . Gastrointestinal: negative for diarrhea, jaundice,. +Coffee ground emesis Genitourinary: denies any dysuria. Hematology; No mucosal Bleeding, No petechiae. Musculoskeletal:negative for back pain and stiff joints. Neurological: negative for headaches, seizures, speech problems and tremors Allergic/Immunologic: negative for anaphylaxis and angioedema . Skin; No rash Psychiatric; No anxiety, No depression, Normal Affect. PMH: Unchanged from H&P. PSH: Unchanged from H&P. Family medical history: Unchanged from H&P. Social history: Unchanged from H&P Scheduled Meds: ??? carBAMazepine 200 mg Oral Nightly (2099) ??? carbamide peroxide 5 drop Left Ear BID ??? cycloSPORINE modified 75 mg Oral BID ??? entecavir 0.5 mg Oral Q7 Days ??? epoetin giancarlo-epbx 6,000 Units Intravenous Once per day on Mon ??? fluconazole 200 mg Oral Daily 0900 ??? gabapentin 100 mg Oral BID ??? heparin 5,000 Units Subcutaneous Q8H ??? hydrALAZINE 100 mg Oral 3 times per day ??? insulin glargine 10 Units Subcutaneous Nightly (2099) ??? insulin lispro 0-5 Units Subcutaneous TID AC ??? insulin lispro 6 Units Subcutaneous TID AC ??? LORazepam 0.5 mg Oral BID ??? melatonin 6 mg Oral Nightly (2099) ??? methocarbamoL 500 mg Oral QID ??? metoprolol tartrate 25 mg Oral BID ??? NIFEdipine 90 mg Oral 2 times per day ??? pantoprazole 40 mg Oral DAILY 0600 ??? QUEtiapine 12.5 mg Oral Nightly (2099) ??? terazosin 10 mg Oral Nightly (2099) ??? vancomycin 1,000 mg Intravenous Once per day on Mon Continuous Infusions: PRN Meds:acetaminophen, albuterol, bisacodyL, dextrose 50 % in water (D50W) OR dextrose 50 % inwater (D50W), glucose, lidocaine (PF) 2% (20 mg/mL), LORazepam AND LORazepam, oxyCODONE OR oxyCODONE, polyethylene glycol, proMETHazine, senna-docusate, sodium chloride 0.9 % Objective: Vital signs in last 24 hours: Temp: [98.2 ??F (36.8 ??C)-98.9 ??F (37.2 ??C)] 98.9 ??F (37.2 ??C) Heart Rate: [101-108] 105 Resp: [18-20] 20 BP: (125-148)/(73-81) 132/76 FiO2: [21 %] 21 % Physical Examination: GENERAL: The patient is awake, alert, oriented x 3 and not in acute cardiorespiratory distress. HEENT: Atraumatic. Normocephalic. PERRLA, EOMI. No icterus, no pallor, no jugular venous distention..No ear or nose discharge. NECK: Supple. Trachea is in midline. CHEST: Symmetric. Clear to auscultation, bilateral equal air entry. CARDIOVASCULAR: S1, S2, Regular pulse. No murmur or gallops. No JVD. ABDOMEN: Soft, nontender, nondistended, positive bowel sounds. No viscera palpable. EXTREMITIES: There is no edema in the lower extremities. Pulses are positive in all extremities. Skin; No bruise, No rash. No petechiae. SOFTWARE ASSET MANAGER; CN II-XII grossly intact. No focal neurological deficit. Intake/Output last 3 shifts: I/O last 3 completed shifts: In: 960 [P.O.:960] Out: 700 [Urine:700] Recent Labs; @SLAB@ Lab Results Component Value Date INR 1.2 (H) 06/08/2020 INR 1.3 (H) 06/05/2020 INR 1.3 (H) 06/04/2020 PROTIME 14.9 06/08/2020 PROTIME 16.8 (H) 06/05/2020 PROTIME 16.5 (H) 06/04/2020 ABG; Lab Results Component Value Date PHART 7.39 05/30/2020 PCO2 48 (H) 05/30/2020 PO2ART 65 (L) 05/30/2020 [id number] 29 (H) 05/30/2020 BEART 3.5 (H) 05/30/2020 [id number] 90.1 (L) 05/30/2020 Last Culture and Gram Stain; Lab Results Component Value Date LABGRAM Many Polymorphonuclear Leukocytes Seen 06/03/2020 LABGRAM Rare Gram Positive Cocci In Pairs; 06/03/2020 ISO2 Scant Growth (A) 10/25/2017 ISO2 Pseudomonas fluorescens (A) 10/25/2017 ISO2 Identified by MALDI-TOF MS (A) 10/25/2017 ISO2 Testing Performed at Laboratory (A) 10/25/2017 Diet; Diet Orders Diet regular liquid thin starting at 06/09 1227 Future Appointments Date Time Provider Department Center 07/01/2020 2:30 PM Ravi Biswas MD [facility] Assessment/Plan: 45-year-old male with history of liver transplant in 2018 secondary to nonalcoholic hepatic steatosis, HTN, DM2, obesity, JC , GERD and Pulm HTN and ESRD on hemodialysis 5 days per week, diabetes admitted to [facility] with a complaint of back pain associated with fever and altered mental status. He wasfound to have discitis and epidural abscess. He underwent L5 laminectomy and incision and drainage of epidural abscess on April 29 without complications. Vancomycin as recommended by infectious disease to be continued with hemodialysis. Patient is on fluconazole for esophageal Candidiasis. Osteomyelitis/Epidural abscess (CMS Dx) (05/28/2020), on extended course of antibiotic therapy given immunosuppression Maintain vancomycin with dialysis through July 23 Monitor weekly safety labs Essential (primary) hypertension (11/12/2019), stable Maintain hydralazine, metoprolol and nifedipine Type 2 diabetes mellitus with diabetic chronic kidney disease (CMS Dx) (11/12/2019), stable Continue Lantus 10 units at bedtime with 6 units of Humalog with meals along with sliding scale. Titrate as needed Immunosuppression for liver transplant (CMS Dx) (10/31/2017) Maintain cyclosporine ESRD (end stage renal disease) (CMS Dx) (09/13/2018) On hemodialysis 5 times weekly Esophageal candidiasis/hx of upper GI bleed (CMS Dx) (06/08/2020) Maintain fluconazole 200 mg by mouth daily Maintain PPI Check occult blood on [place] Hemoglobin is stable Obstructive sleep apnea (06/08/2020) CPAP QHS Anxiety (06/09/2020), stable On lorazepam a Hepatitis B carrier (CMS Dx) (06/14/2020) On Entecavir by mouth weekly ?? Diet: Regular ?? IV fluids: None ?? Pain management: tylenol, oxycodone, gabapentin ?? Lines/tubes: tunneled HD cath ?? Precautions/Isolation: none ?? Ambulation: as tolerated ?? Restraints: None ?? Ancillary services: PT, OT, wound care ?? Patient status: inpatient Prophylaxis; GI Prophylaxis: Pantoprazole DVT Prophylaxis: Subcutaneous Heparin Code Status: Full Code Yessy Molina MD. Pager # [phone]. * Dayana Marie RRT - 06/15/2020 2:46 AM EST Patient on room air with saturation > 92%, he continues to decline both his home CPAP and a hospital Respironics unit. RN present. * Maru Bianchi RN - 06/14/2020 10:08 AM EST Patient is alert, pleasant, and eating breakfast at this time. Patient is able to communicate needsappropriately and states having pain in right hip. PRN pain medications given. Patient is able to feed self and has good PO intake. VSS, RR are even and unlabored. No signs of acute distress at this time. Patient remains free from falls and injury during shift. Patient denies any requests at this time. Call light in reach. * Jake Zavala MD - 06/14/2020 8:52 AM EST [facility] Hospitalist Attending Progress Note Chief Complaint / Reason for Follow-Up Aiden Stauffer Jr. is a 45 y.o. male on hospital day 6. The principal reason for today's follow up visit is Osteomyelitis ([facility] Dx). Interval History / Subjective Mr. Stauffer feels well today, and states that the pain is not as bad as it had been. He had an xray of hip yesterday, which was normal. He is still complaining of nerve pain and asked if it is possible to increase gabapentin. I explained that because of dialysis the dose is very limited. He reports that overnight RN raised hed of bed very high and it was difficult for him to sleep due to pain in hip. I explained reasoning for elevated HOB, but told he it is OK for him to lie flat to sleep. Past medical, family, and social histories were reviewed as previously documented. Updates were made as necessary. Review of Systems (Focused) Review of Systems Constitutional: Negative for chills and fever. HENT: Negative for congestion and sore throat. Respiratory: Negative for cough, shortness of breath and wheezing. Cardiovascular: Negative for chest pain and palpitations. Gastrointestinal: Negative for abdominal pain, constipation, diarrhea, nausea and vomiting. Musculoskeletal: Positive for joint pain (hip) and myalgias ( shooting nerve pain). Negative for back pain. Skin: Negative for itching and rash. Neurological: Negative for dizziness and headaches. Psychiatric/Behavioral: Negative for depression. The patient is not nervous/anxious. Vital Signs Vitals: 06/13/20 1923 06/13/20 2328 06/14/20 0318 06/14/20 0600 BP: 136/70 BP Location: Right arm Patient Position: Lying Pulse: 103 104 101 95 Resp: 18 Temp: 98.4 ??F (36.9 ??C) TempSrc: Oral SpO2: 98% 93% 96% 94% Weight: Height: Physical Exam Physical Exam Vitals signs and nursing note reviewed. Constitutional: General: He is not in acute distress. Appearance: He is well-developed. He is obese. HENT: Head: Normocephalic and atraumatic. Mouth/Throat: Pharynx: No oropharyngeal exudate. Eyes: General: No scleral icterus. Conjunctiva/sclera: Conjunctivae normal. Cardiovascular: Rate and Rhythm: Normal rate and regular rhythm. Heart sounds: Normal heart sounds. No murmur. Pulmonary: Effort: Pulmonary effort is normal. No respiratory distress. Breath sounds: Normal breath sounds. No wheezing. Abdominal: General: Bowel sounds are normal. There is no distension. Palpations: Abdomen is soft. Tenderness: There is no abdominal tenderness. Skin: General: Skin is warm and dry. Findings: No erythema. Neurological: Mental Status: He is alert and oriented to person, place, and time. Psychiatric: Behavior: Behavior normal. Diagnostic Studies Labs reviewed: glucose trend No imaging today. Assessment & Plan Hospital Problems Principal Problem: Osteomyelitis (CMS Dx) Active Problems: Essential (primary) hypertension Type 2 diabetes mellitus with diabetic chronic kidney disease (CMS Dx) Immunosuppression for liver transplant (CMS Dx) ESRD (end stage renal disease) (CMS Dx) Prophylaxis for cytomegalovirus Anemia, unspecified Esophageal candidiasis (CMS Dx) Obstructive sleep apnea Anxiety Right hip pain Hepatitis B carrier (CMS Dx) Today's Plan * Osteomyelitis (CMS Dx)- (present on admission) Infectious diseases plans for extended course given immunosuppression. PLAN: ?? Continue vancomycin with dialysis, treat through 07/23/2020 ?? Safety labs weekly Hepatitis B carrier (CMS Dx) The patient's liver donor was hepatitis B positive. He is on entecavir chronically for prophylaxis/suppression. Hep B viral load at [facility] was detectable, but to low to quantify. Infectious diseases isconsidering increasing entecavir and will follow up with outpatient transplant ID to discuss. PLAN: ?? Continue entecavir 0.5 mg PO weekly ?? Isolate during dialysis Anxiety He is not having anxiety now, but requests that he be permitted to have a PRN dose in afternoon if he is anxious. Currently on BID scheduled. PLAN: ?? Continue lorazepam 0.5 mg PO BID AND PRN lorazepam 0.5 mg PO once per day Obstructive sleep apnea His home unit is here, but seems to be configured incorrectly. He is using hospital unit. PLAN: ?? CPAP overnight Esophageal candidiasis (CMS Dx) On fluconazole (luz seen on EGD). Monitoring cyclosporine while on fluconazole; level is appropriate. PLAN: ?? Continue fluconazole 200 mg PO daily Immunosuppression for liver transplant (CMS Dx)- (present on admission) The patient is on cyclosporine. Will need weekly labs while on fluconazole. His most recent level was low. Discussed with hepatology fellow; no need to increase dose unless LFTs start to rise. PLAN: ?? Continue cyclosporine 75 mg PO BID ?? Check LFTs and cyclosporine levels every Monday Type 2 diabetes mellitus with diabetic chronic kidney disease (CMS Dx)- (present on admission) Bedtime glucose was 136 and fasting was 134 this morning. Very well controlled on current regimen. PLAN: ?? Continue insulin glargine 10 units subcutaneous QHS ?? Continue insulin lispro 6 units subcutaneous QAC ?? Continue insulin lispro correction 0-5 units subcutaneous QAC per low-dose scale ?? Fingersticks QAC/QHS Inpatient Management: ?? Diet: regular thin ?? IV fluids: none ?? Pain management: acetaminophen, oxycodone, gabapentin ?? Lines: Tunneled HD catheter ?? DVT prophylaxis: heparin (dialysis) ?? Precautions/Isolation: none ?? Ambulation: as tolerated ?? Restraints: none Ancillary services: PT, OT and Wound Care ?? Patient status: inpatient ?? Code status: Full Code Jake Zavala MD 06/14/2020 10:27 AM * Dayana Marie RRT - 06/13/2020 11:31 PM EDT Patient asked to go on Bipap at 11:30, but pulled the mask off and said he will call if he needs it. Dr. Arrington notified. Will check pulse ox Q4 as if he were on Bipap. * Yana Bianchi RN - 06/13/2020 11:[address] rArington notified per respiratory therapy concerning patient's refusal to wear bi-pap per telephone conversation. Patient HOB elevated Per therapist, and patient reversed settings and lowered his head. * Yana Bianchi RN - 06/13/2020 8:24 PM EDT Patient requested pain medication for c/o back pain rated 9-10. Pt. Administered Oxycodone 10 mg POaccording to pain scale. * Dayana Marie RRT - 06/13/2020 7:33 PM EDT Patient called for PRN Albuterol earlier but changed his mind, and will call if he needs it later. RN notified. * Anton Mercedes RRT - 06/13/2020 1:45 PM EDT Respiratory Therapy: Assessment Note Assessment/Vitals: BBS diminished HR 96 RR 20 Patient was administered Albuter secondary to signs and symptoms of patient complaining of wheezing. Post administration follow up: HR 96 RR 20 BBS diminished NATON MERCEDES RRT 06/13/2020 1:45 PM * Jake Zavala MD - 06/13/2020 8:09 AM EDT [facility] Acute Care Hospitalist Attending Progress Note Chief Complaint / Reason for Follow-Up Aiden Stauffer Jr. is a 45 y.o. male on hospital day 5. The principal reason for today's follow up visit is Osteomyelitis ([facility] Dx). Interval History / Subjective Mr. Stauffer feels better today. He is starting to have return of R hip pain this morning, but it is less painful that yesterday. The skin/burning pain is not present today. He also feels like his muscles are tight, and that is contributing to pain. Past medical, family, and social histories were reviewed as previously documented. Updates were made as necessary. Review of Systems (Focused) Review of Systems Constitutional: Negative for chills and fever. HENT: Negative for congestion and sore throat. Respiratory: Negative for cough, shortness of breath and wheezing. Cardiovascular: Negative for chest pain and palpitations. Gastrointestinal: Negative for abdominal pain, constipation, diarrhea, nausea (had nausea last night, resolved with promethazine) and vomiting. Musculoskeletal: Positive for joint pain and myalgias (leg cramps). Negative for back pain. Skin: Negative for itching and rash. Neurological: Negative for dizziness and headaches. Psychiatric/Behavioral: Negative for depression. The patient is not nervous/anxious. Vital Signs Vitals: 06/12/20 1900 06/12/20 2117 06/13/20 0026 06/13/20 0537 BP: 136/65 134/65 139/73 BP Location: Right arm Right arm Patient Position: Lying Lying Pulse: 104 101 104 104 Resp: 18 18 18 18 Temp: 97.8 ??F (36.6 ??C) 97.2 ??F (36.2 ??C) 98.4 ??F (36.9 ??C) TempSrc: Temporal Axillary Oral SpO2: 97% 93% 96% Weight: Height: Physical Exam Physical Exam Vitals signs and nursing note reviewed. Constitutional: General: He is not in acute distress. Appearance: He is well-developed. He is obese. HENT: Head: Normocephalic and atraumatic. Mouth/Throat: Pharynx: No oropharyngeal exudate. Eyes: General: No scleral icterus. Conjunctiva/sclera: Conjunctivae normal. Cardiovascular: Rate and Rhythm: Normal rate and regular rhythm. Heart sounds: Normal heart sounds. No murmur. Pulmonary: Effort: Pulmonary effort is normal. No respiratory distress. Breath sounds: Normal breath sounds. No wheezing. Abdominal: General: Bowel sounds are normal. There is no distension. Palpations: Abdomen is soft. Tenderness: There is no abdominal tenderness. Skin: General: Skin is warm and dry. Findings: No erythema. Neurological: Mental Status: He is alert and oriented to person, place, and time. Psychiatric: Behavior: Behavior normal. Diagnostic Studies Labs reviewed: glucose trend, CBC (Hgb 7.0 -> 8.1) No imaging today. Assessment & Plan Hospital Problems Principal Problem: Osteomyelitis (CMS Dx) Active Problems: Essential (primary) hypertension Type 2 diabetes mellitus with diabetic chronic kidney disease (CMS Dx) Immunosuppression for liver transplant (CMS Dx) ESRD (end stage renal disease) (CMS Dx) Prophylaxis for cytomegalovirus Anemia, unspecified Esophageal candidiasis (CMS Dx) Obstructive sleep apnea Anxiety Right hip pain Today's Plan * Osteomyelitis (CMS Dx)- (present on admission) Had safety labs this week, which were reassuring. He asked if repeat MRI is needed to show resolution of epidural abscess/osteomyelitis. His symptoms are improving and he no longer has back pain. Given improvement in symptoms, I do not think he needs repeat imaging now. Pain is controlled. PLAN: ?? Continue vancomycin with dialysis ?? Safety labs weekly Right hip pain Does not appear to have imaging of [...] mg or 10 mg PO Q4H Anxiety Anxiety is better controlled. He is taking 1-2x per day (mostly twice). He would like to have it scheduled BID. PLAN: ?? Change lorazepam 0.5 mg PO from Q8H PRN to BID Anemia, unspecified- (present on admission) Hemoglobin improved to 8.1 after 1 unit yesterday. PLAN: ?? Continue epoetin 6000 units Mon/Wed/Fri ESRD (end stage renal disease) ([facility] Dx)- (present on admission) Dialsysis M/W/F. Tolerated well yesterday. PLAN: ?? Continue dialysis Immunosuppression for liver transplant ([facility] Dx)- (present on admission) The patient is on cyclosporine. Will need weekly labs while on fluconazole. He is also taking entecavir chronically (donor was hepatitis B positive). Hep B levels at [facility] were detectable, but to low to quantify. Infectious diseases is considering increasing entecavir and will follow up with outpatient transplant ID to discuss. PLAN: ?? Continue cyclosporine 75 mg PO BID ?? Continue entecavir 0.5 mg PO weekly ?? Check cyclosporine levels every Monday Type 2 diabetes mellitus with diabetic chronic kidney disease ([facility] Dx)- (present on admission) Bedtime glucose was 211 and fasting was 194. Bolus seems appropriate. Will increase pre meal. PLAN: ?? Continue insulin glargine 10 units subcutaneous QHS ?? Increase insulin lispro from 4 units to 6 units subcutaneous QAC ?? Continue insulin lispro correction 0-5 units subcutaneous QAC per low-dose scale ?? Fingersticks QAC/QHS Essential (primary) hypertension- (present on admission) The patient's blood pressure is within goal. BP: 139/73 PLAN: ?? Continue hydralazine 100 mg PO Q8H ?? Continue nifedipine XR 90 mg PO BID ?? Continue metoprolol 25 mg PO BID ?? Continue terazosin 10 mg PO QHS Inpatient Management: ?? Diet: regular thin ?? IV fluids: none ?? Pain management: acetaminophen, oxycodone, gabapentin ?? Lines: Tunneled HD catheter ?? DVT prophylaxis: heparin (dialysis) ?? Precautions/Isolation: none ?? Ambulation: as tolerated ?? Restraints: none Ancillary services: PT, OT and Wound Care ?? Patient status: inpatient ?? Code status: Full Code Jake Zavala MD 06/13/2020 9:44 AM * Hawa Toscano RRT - 06/13/2020 2:48 AM EDT Pt declined to wear CPAP. House Doctor notified. * Jake Zavala MD - 06/12/2020 3:43 PM EDT [facility] Acute Care Hospitalist Attending Progress Note Chief Complaint / Reason for Follow-Up Aiden Stauffer Jr. is a 45 y.o. male on hospital day 4. The principal reason for today's follow up visit is Osteomyelitis ([facility] Dx). Interval History / Subjective Mr. Stauffer reported that he is having leg pain today in his R hip. He is also having a burning painon the skin of the R thigh when the skin is touched. He otherwise feels OK, but this is impacting his physical therapy. He feels anxious today, which he thinks is because of increased pain and also because his hasn't been able to visit. Past medical, family, and social histories were reviewed as previously documented. Updates were made as necessary. Review of Systems (Focused) Review of Systems Constitutional: Negative for chills and fever. HENT: Negative for congestion and sore throat. Respiratory: Negative for cough, shortness of breath and wheezing. Cardiovascular: Negative for chest pain and palpitations. Gastrointestinal: Negative for abdominal pain, constipation, diarrhea, nausea and vomiting. Musculoskeletal: Positive for joint pain and myalgias (leg cramps). Negative for back pain. Skin: Negative for itching and rash. Neurological: Negative for dizziness and headaches. Psychiatric/Behavioral: Negative for depression. The patient is nervous/anxious. Vital Signs Vitals: 06/11/20 2122 06/11/20 2354 06/12/20 0500 06/12/20 0916 BP: 106/58 120/65 BP Location: Right arm Right arm Patient Position: Lying Lying Pulse: 96 99 98 Resp: Temp: 98.9 ??F (37.2 ??C) 98.5 ??F (36.9 ??C) TempSrc: Oral Oral SpO2: 95% 95% 90% 96% Weight: Height: Physical Exam Physical Exam Vitals signs and nursing note reviewed. Constitutional: General: He is not in acute distress. Appearance: He is well-developed. He is obese. HENT: Head: Normocephalic and atraumatic. Mouth/Throat: Pharynx: No oropharyngeal exudate. Eyes: General: No scleral icterus. Conjunctiva/sclera: Conjunctivae normal. Cardiovascular: Rate and Rhythm: Normal rate and regular rhythm. Heart sounds: Normal heart sounds. No murmur. Pulmonary: Effort: Pulmonary effort is normal. No respiratory distress. Breath sounds: Normal breath sounds. No wheezing. Abdominal: General: Bowel sounds are normal. There is no distension. Palpations: Abdomen is soft. Tenderness: There is no abdominal tenderness. Skin: General: Skin is warm and dry. Findings: No erythema. Neurological: Mental Status: He is alert and oriented to person, place, and time. Psychiatric: Behavior: Behavior normal. Diagnostic Studies Labs reviewed: glucose trend, renal, CBC No imaging today. Assessment & Plan Hospital Problems Principal Problem: Osteomyelitis (CMS Dx) Active Problems: Essential (primary) hypertension Type 2 diabetes mellitus with diabetic chronic kidney disease (CMS Dx) Immunosuppression for liver transplant (CMS Dx) ESRD (end stage renal disease) (CMS Dx) Prophylaxis for cytomegalovirus Anemia, unspecified Esophageal candidiasis (CMS Dx) Obstructive sleep apnea Anxiety Today's Plan * Osteomyelitis (CMS Dx)- (present on admission) On vancomycin for RODNEY. Infectious diseases is following. PLAN: ?? Continue vancomycin with dialysis ?? Safety labs weekly Anxiety Anxiety was increased today. He feels that the lorazepam helps, but he had not yet had a dose today. PLAN: ?? Continue PRN lorazepam 0.5 mg PO Q8H for anxiety Obstructive sleep apnea Brought home unit it. PLAN: ?? CPAP overnight Anemia, unspecified- (present on admission) Hemoglobin is 7.0, but was 6.9 earlier this week. He was not transfused at that time due to difficulty finding matched blood. Will transfuse today. PLAN: ?? Transfuse 1 unit of packed red blood cells on Monday. ESRD (end stage renal disease) (CMS Dx)- (present on admission) Dialsysis M/W/F. Will need to remove some additional fluid today to compensate for blood and vancomycin. PLAN: ?? Continue dialysis Type 2 diabetes mellitus with diabetic chronic kidney disease ([facility] Dx)- (present on admission) Glucose well controlled today. PLAN: ?? Continue insulin glargine 10 units subcutaneous QHS ?? Continue insulin lispro 4 units subcutaneous QAC ?? Continue insulin lispro correction 0-5 units subcutaneous QAC per low-dose scale ?? Fingersticks QAC/QHS Inpatient Management: ?? Diet: regular thin ?? IV fluids: none ?? Pain management: acetaminophen, oxycodone, gabapentin ?? Lines: Tunneled HD catheter ?? DVT prophylaxis: heparin (dialysis) ?? Precautions/Isolation: none ?? Ambulation: as tolerated ?? Restraints: none Ancillary services: PT, OT and Wound Care ?? Patient status: inpatient ?? Code status: Full Code Jake Zavala MD 06/12/2020 3:52 PM * EFREN Leonardo/Margaret Pearl 06/12/2020 3:32 PM EDT Occupational Therapy [facility] Daily Note Name: Aiden Stauffer Jr. : 1975 Attending Physician: Jake Zavala MD Admission Diagnosis: osteomyelitis 05/28/2020 [facility] Date: 06/12/2020 Reviewed Pertinent hospital course: Yes Hospital Course PT/OT: Aiden Stauffer??is a 45 y.o.??male??with history of liver transplant 2018 secondary to SAL, ESRD on home dialysis 5 days per week, DM who presents with 1 week of back pain, fever and AMS. ??Found to have discitis and epidural abscess on imaging.??Severe sepsis (fever, confusion, leukocytosis, lactic acidosis) in setting of immunosuppression, discitis, epidural abscess. MRIL5/S1 with osteomyelitis/discitis and fluid collection concerning for epidural abscess.??Upon arrival, neurosurgery was consulted. ??He underwent L5 laminectomy, epidural abscess I and D on 04/29 without complication. Precautions: (no restrictions on WBing) Activity Level: Activity as tolerated PT Assessment complete?: Yes OT Assessment complete?: Yes Brief Assessment Assessment: Decreased UE strength, Decreased activity tolerance, Decreased Functional Mobility, Decreased ADL status, Decreased sensation, Decreased self- care transfers, Decreased Balance, Decreased IADLs, Decreased Safe judgment during ADL Prognosis for OT goals: Good Goals Goals to be met in: in 4 weeks (07/10) Patient stated goal: to go home Patient will complete supine to sit in prep for ADLs: Independent(in 4 weeks (07/10)) Patient will complete functional chair transfer: Contact Guard assistance(in 4 weeks (07/10)) Patient will complete toilet transfer: Contact Guard assistance(in 4 weeks (07/10)) Patient will complete toileting: Stand-by assistance(in 4 weeks (07/10)) Patient will complete upper body dressing: Independent(in 4 weeks (07/10)) Patient will complete lower body dressing: Minimal assistance(in 4 weeks (07/10)) Patient will complete upper body bathing : Modified Independent(in 4 weeks (07/10)) Patient will complete lower body bathing : Stand-by assistance(in 4 weeks (07/10)) Pt Will participate in upper extremity HEP to prep for ADLs: : ongoing Miscellaneous Goal #1: Pt will ambulate household distances with RW and CGA Mcfp Goal : Pt will increase score on Dylon Index by 5 points by 07/21 skilled nursing goal to be met in: 6 weeks Collaborated with: Patient Recommendation Plan Treatment Interventions: ADL retraining, UE strengthening/ROM, Compensatory technique education, Lower Extremity Intervention, Equipment eval/education, Activity Tolerance training, Therapeutic Activity, Neuro muscular reeducation, Energy Conservation, Functional transfer training, Excercise OT Frequency: minimum 3x/week Recommendation Recommendation: Short-term skilled OT Cognition Overall Cognitive Status: Within Functional Limits Arousal/Alertness: Alert Behavior: Appropriate;Cooperative;Distracted;Perseverating(distracted and perseverating on pain with mobility) Following Commands: Follows multistep commands;Requires increased time Safety Judgment: Decreased safety awareness;Impulsive;Impaired judgment Comments: Pt had inc anxiety with all mobiltiy which resulted in impulsive, unsafe behavior, sitting too quickly in both the w/c and the recliner due to pain. Pain Pain Score: 7 Pain Location: Back(B anterior LEs from hip to ankles) Pain Descriptors: Burning Pain Intervention(s): Repositioned Therapist reported pain to: RN gave pt pain meds as therapy session was starting. Pt's MD present at EOS and pain described, in detail, to MD Mobility Bed Mobility Rolling: Stand-by assistance;towards the left;use of handrail Supine to Sit: Maximum assistance;of 2 people;towards the left;head of bed elevated;use of handrail(with inc time and inc c/o pain) Transfers Sit to Stand: Minimal assistance;of 2 people;up to assistive device Bed to Chair: Minimal assistance;of 2 people;stand step;with assistive device;towards the right Chair to Bed: Minimal assistance;of 2 people;increased time to complete task;stand step;with assistive device;towards the left(w/c to recliner) Gait Distance: pt declined due to inc pain Wheelchair management Distance: (attempted, however, pt unable due to c/o pain and needing to use his B Ue's to position comfortably in the w/c) Balance Sitting - Static: Stand-by assistance;Contact Guard assistance Sitting - Dynamic: Contact Guard Assistance Standing - Static: Minimal Assistance;2 Person Assistance;With Assistive Device Standing-Static Asssistance Device: Rolling walker Standing - Dynamic: Minimal Assistance;2 Person Assistance;With Assistive Device Standing-Dynamic Assistance Device: Rolling walker ?? ADL Lower Body Dressing: Total assistance Position after Treatment and Safety Handoff Position after therapy session: Recliner Details: Call light/ needs within reach;LE elevated on pillow for decreased heel pressure(chair fully reclined to inc pt comfort/ dec pain) Patient Education: Role of OT; Progressing therapy Time Start Time: 1050 Stop Time: 1116 Time Calculation (min): 26 min Charges $Therapeutic Activity: 8-22 mins - 1unit cotx Pt seen as a cotx this date to maximize safe mobility and improve pt outcomes. Pt supine in bed upon arrival, with pain complaints in B anterior LEs- both hypersensitivity to touch, feeling burning , and also deep pain. Pt took pain meds and requested to perform supine ex as a warm up to allow for meds to kick in . Pt's mobility greatly limited by pain this date with pt requiring inc assist for supine to sit and unable to tolerate sitting on EOb or up in w/c at 90 degrees without moaning inpain and attempting to re- position. Pt extremely impulsive with stand to sit in both w/c and recliner, sitting back impulsively and immediately leaning back to dec 90 degree sitting position. Pt c/oinc anxiety, as well, up in w/c. Pt's w/c reclined further to inc pt comfort, however, pt continuedto attempt to self- position and highly distracted by pain. Aattempted to have pt self- propel w/c,after pt declined any gait or standing activities, however, pt unable due to pain. Pt also declinedUE exercise. Pt transferred to recliner chair in the room where pt needed to fully recline to dec pain. MD arrived and pt's pain and dec tolerance for therapy and sitting upright discussed. Pain is pt's greatest limiting factor with mobility at this time. Continue per POC in collaboration with OTR/L LISA Leonardo Cosigned by Darling Carvajal OT at 06/15/2020 10:17 AM EST Associated attestation - Darling Carvajal OT - 06/15/2020 10:17 AM EST Darling Russell OTR/L [id number] * Rose Lozano, PT - 06/12/2020 11:35 AM EDT Physical Therapy Treatment Name: Aiden Ivelisse Stauffer Jr. : 1975 Attending Physician: Jake Zavala MD Admission Diagnosis: osteomyelitis 05/28/2020 [facility] Date: 06/12/2020 Reviewed Pertinent hospital course: Yes Hospital Course PT/OT: Aiden Stauffer??is a 45 y.o.??male??with history of liver transplant 2018 secondary to SAL, ESRD on home dialysis 5 days per week, DM who presents with 1 week of back pain, fever and AMS. ??Found to have discitis and epidural abscess on imaging.??Severe sepsis (fever, confusion, leukocytosis, lactic acidosis) in setting of immunosuppression, discitis, epidural abscess. MRIL5/S1 with osteomyelitis/discitis and fluid collection concerning for epidural abscess.??Upon arrival, neurosurgery was consulted. ??He underwent L5 laminectomy, epidural abscess I and D on 04/29 without complication. Precautions: (no restrictions on WBing) Activity Level: Activity as tolerated PT Assessment complete?: Yes OT Assessment complete?: Yes Assessment Assessment: Impaired Bed Mobility, Impaired Transfers, Impaired Gait, Impaired Balance, Impaired Strength, Impaired Safety Awareness, Impaired Sensation, Impaired Motor Control, Impaired Stair Negotiation, Impaired Activity Tolerance, Deconditioning Prognosis: Good Goals Met none Goals Goals to be met by: 07/07/20 Patient will transition from supine to sit: Modified Independent, without bedrails, HOB flat(by 07/07/20.) Patient will transfer from sit to stand: Stand-By assistance, up to assistive device(to RW by 07/07/20.) Patient will transfer bed/chair: Minimal assistance(by 06/23/20.) Patient will ambulate: (150' with RW and CGA by 07/07/20.) Patient will go up / down stairs: Contact Guard assistance(4 steps with 1 railing by 07/07/20.) Patient will sit edge of bed: Modified Independent(while performing UE activity by 06/23/20.) Patient will stand: Stand-By assistance, with assistive device(x 2 mins by 07/07/20.) Stand Assistive Device: Rolling walker Miscellaneous Goal #1: (Pt will increase score on FIST by 6 points by 07/07/20.) Miscellaneous Goal #2: (Pt will be indepedent with HEP for LE strengthening by 07/07/20.) Recommendation Plan Treatment/Interventions: LE strengthening/ROM, Endurance training, Patient/family training, Equipment eval/education, Gait training, Stair Training, Neuromuscular Reeducation, Therapeutic Activity, Therapeutic Exercise, Wheelchair Mobility PT Frequency: minimum 3x/week Recommendation Recommendation: Short-term skilled PT Equipment Recommended: Defer until further assessment Problem List Patient Active Problem List Diagnosis ??? Essential (primary) hypertension ??? Type 2 diabetes mellitus with diabetic chronic kidney disease ([facility] Dx) ??? Liver transplanted ([facility] Dx) ??? Immunosuppression for liver transplant ([facility] Dx) ??? Abnormal stress test ??? ESRD (end stage renal disease) ([facility] Dx) ??? Prophylaxis for cytomegalovirus ??? Anemia, unspecified ??? Osteomyelitis ([facility] Dx) ??? Vitamin D deficiency, unspecified ??? Secondary hyperparathyroidism of renal origin (CMS Dx) ??? Disorder of phosphorus metabolism, unspecified ??? Discitis ??? Allergy, unspecified, initial encounter ??? Esophageal candidiasis (CMS Dx) ??? Obstructive sleep apnea ??? Anxiety Past Medical History Past Medical History: Diagnosis [...] TIPS PROCEDURE 10/2016 ??? TIPS Revision 04/2017 Cognition: Overall Cognitive Status: Within Functional Limits Arousal/Alertness: Alert Behavior: Appropriate;Cooperative;Distracted;Perseverating(distracted and perseverating on pain with mobility) Following Commands: Follows multistep commands;Requires increased time Safety Judgment: Decreased safety awareness;Impulsive;Impaired judgment Comments: Pt had inc anxiety with all mobiltiy which resulted in impulsive, unsafe behavior, sitting too quickly in both the w/c and the recliner due to pain. Pain: Pain Score: 7 Pain Location: Back(B anterior LEs from hip to ankles) Pain Descriptors: Burning Pain Intervention(s): Repositioned Therapist reported pain to: RN gave pt pain meds as therapy session was starting. Pt's MD present at EOS and pain described, in detail, to MD Mobility: Bed Mobility Rolling: Stand-by assistance;towards the left;use of handrail Supine to Sit: Maximum assistance;of 2 people;towards the left;head of bed elevated;use of handrail(with inc time and inc c/o pain) Transfers Sit to Stand: Minimal assistance;of 2 people;up to assistive device Bed to Chair: Minimal assistance;of 2 people;stand step;with assistive device;towards the right Chair to Bed: Minimal assistance;of 2 people;increased time to complete task;stand step;with assistive device;towards the left(w/c to recliner) Gait Distance: pt declined due to inc pain Wheelchair management Distance: (attempted, however, pt unable due to c/o pain and needing to use his B Ue's to position comfortably in the w/c) Balance Sitting - Static: Stand-by assistance;Contact Guard assistance Sitting - Dynamic: Contact Guard Assistance Standing - Static: Minimal Assistance;2 Person Assistance;With Assistive Device Standing-Static Asssistance Device: Rolling walker Standing - Dynamic: Minimal Assistance;2 Person Assistance;With Assistive Device Standing-Dynamic Assistance Device: Rolling walker Exercise: Supine Exercises: Ankle pumps;Quad sets;Gluteal sets Reps/Comments: B LE x15 reps each done as warm up to allow pain meds to kick in prior to mobility Pt seen as a cotx this date to maximize safe mobility and improve pt outcomes. Pt supine in bed upon arrival, with pain complaints in B anterior LEs- both hypersensitivity to touch, feeling burning , and also deep pain. Pt took pain meds and requested to perform supine ex as a warm up to allow for meds to kick in . OT arrived for cotx for mobility. Pt's mobility greatly limited by pain this date with pt requiring inc assist for supine to sit and unable to tolerate sitting on EOb or up in w/c at 90 degrees without moaning in pain and attempting to re- position. Pt extremely impulsive with stand to sit in both w/c and recliner, sitting back impulsively and immediately leaning back to dec 90 degree sitting position. Pt c/o inc anxiety, as well, up in w/c. Pt's w/c reclined further to incpt comfort, however, pt continued to attempt to self- position and highly distracted by pain. Aattempted to have pt self- propel w/c, after pt declined any gait or standing activities, however, pt unable due to pain. Pt also declined UE exercise. Pt transferred to recliner chair in the room where pt needed to fully recline to dec pain. MD arrived and pt's pain and dec tolerance for therapy and sitting upright discussed. Pain is pt's greatest limiting factor with mobility at this time. Cont withPOC, as able. Position after Treatment and Safety Handoff Position after therapy session: Recliner Details: Call light/ needs within reach;LE elevated on pillow for decreased heel pressure(chair fully reclined to inc pt comfort/ dec pain) Mobility Recommendations for Staff Patient ability: Patient is unsafe to perform out of bed activity unless a therapist is present Patient Education Safety with stand to sit and all mobility; log roll to dec back pain Time Start Time: 1044 Stop Time: 1116 Time Calculation (min): 32 min Charges $Therapeutic Activity: 1 unit(-1 cotx with OT) Rose Lozano, MPT [id number] * Kelsie Scanlon, PharmD - 06/12/2020 8:28 AM EDT Images from the original note were not included. Clinical Pharmacy Service - Vancomycin Progress Note Aiden Stauffer JrUbaldo is a 45 y.o. male on vancomycin. Pharmacy consulted by the primary team to manage vancomycin dosing. Current Anti-Infectives Dose Frequency Start End entecavir (BARACLUDE) tablet 0.5 mg 0.5 mg Every 7 days 06/09/2020 Admin Instructions: ADMINISTER ON EMPTY STOMACH (2 HOURS BEFORE OR AFTER MEALS).
LEVEL 2 HAZARDOUS MEDICATION Route: Oral fluconazole (DIFLUCAN) tablet 200 mg 200 mg Daily 06/09/2020 06/20/2020 Route: Oral vancomycin (VANCOCIN) 1,000 mg in sodium chloride 0.9% 250 mL ADDaptor IVPB 1,000 mg Every Monday, Monday, Monday06/12/2020 Admin Instructions: Please give dose after dialysis
Use ADDaptor product - Mix Thoroughly Before Administration Route: Intravenous Wt Readings from Last 3 Encounters: 06/08/20 (!) 245 lb 7 oz (111.3 kg) 06/07/20 (!) 251 lb 15.8 oz (114.3 kg) 03/16/20 (!) 278 lb (126.1 kg) WBC, BUN, Creatinine (Last 7 days) WBC BUN Creatinine 5.0 10E3/uL 06/12/20 0545 24 mg/dL 06/12/20 0545 5.96 mg/dL 06/12/20 0545 5.8 10E3/uL 06/10/20 1525 35 mg/dL 06/10/20 1525 7.90 mg/dL 06/10/20 1525 4.4 10E3/uL 06/09/20 0605 22 mg/dL 06/09/20 0605 6.03 mg/dL 06/09/20 0605 Lab Results (Last 7 days) Vanc Rdm Vanc Tr 18.0 ug/mL 06/09/20 0605 17.1 ug/mL 06/12/20 0545 15.5 ug/mL 06/07/20 0727 15.5 ug/mL 06/10/20 0533 17.5 ug/mL 06/05/20 1200 Microbiology Results Date and Time Order Name Sensitivity Status Organisms Specimen ID Source 06/03/2020 0831 Anaerobic culture Final [id number] Back 06/03/2020 0831 Routine Culture plus Stain Final [id number] Back 05/28/2020 1541 #1 Blood culture-Peripheral Final [id number] Peripheral 05/28/2020 1404 #2 Blood culture-Peripheral Final [id number] Peripheral Current SCr: 5.96 mg/dL as of 06/12/20 HD MWF Pertinent allergies: None related to antibiotics Indication: osteomyelitis/discitis/epidural abscess Goal Trough: 15-20 mg/L Tentative stop date: 07/23/20 per ID at [facility] Assessment and Plan ?? Patient is being treated with vancomycin for osteomyelitis/discitis/epidural abscess ?? Currently receiving vancomycin 1000 mg during the last hour of dialysis on MWF ?? Vancomycin level drawn before dialysis is therapeutic at 17.1 mcg/mL ?? Continue current vancomycin dose at 1000 mg during the last hour of dialysis on MWF ?? Check next vancomycin level prior to hemodialysis session on 06/15/20 @ 0600 ?? Pharmacy will continue to monitor therapy for efficacy and toxicity Thank you for the consult KELSIE SCANLON PharmD 06/12/2020 8:28 AM Phone: [phone] For clinical pharmacy assistance after 4pm or on weekends, please call [phone] * Maru Benedict RN - 06/12/2020 1:46 AM EDT Patient assessment complete- see doc flow sheet for details. Patient is alert, oriented, able to make needs known.. Patient is requesting for his anxiety meds and c/o pain of 9/10 in back area. Pt stated needs have a BM frequently and asking for prn laxative. Doculax 10 mg tablet was given per prn orders. Results pending. Call light within reach- will continue POC. * Zohra Conway, RICARDO - 06/11/2020 11:54 PM EDT Patient only wear CPAP for one hour then pull off the CPAP . Patient is resting on room air withoutany respiratory distress. * Dhaval Parrish RRT - 06/11/2020 10:19 PM EDT Education was performed by Respiratory Care with Aiden Stauffer on 06/11/2020 covering incentive spirometer use and benefits. Pt demonstrates adequate knowledge and benefits of IS, and is proficient in use. IS left at bedside with pt. * Maru Benedict RN - 06/11/2020 10:09 PM EDT Pt refused CPAP and pulled it off. Oxgyen 95% R/ A no distress noted. * Janeth Del Toro RN - 06/11/2020 5:24 PM EDT BP 110/50 (BP Location: Right arm, Patient Position: Lying) Pulse 199 Temp 98.4 ??F (36.9 ??C) (Axillary) Resp 20 Ht 5' 7 (1.702 m) Wt (!) 245 lb 7 oz (111.3 kg) Comment: had dialysis prior to arrrival SpO2 91% BMI 38.44 kg/m?? Pt assessed this shift. Complaints of pain to bilater lower extremities. Pain medication administered per request. Vitals stable. Dressing to left fistula C/D/I. No other concerns voiced or noted at this time. * Mathew Sandhu MD - 06/11/2020 2:33 PM EDT Infectious Diseases Progress Note Patient Name: Aiden Stauffer Jr. Admit Date: 06/08/2020 Hospital Day: 4 Subjective: Asked to follow for vertebral osteomyelitis/epidural abscess. Patient is a 45 year old man who had liver transplant in 2017. The following history is excerpted from prior ID notes: He was admitted to a hospital in [place] in mid April for back pain and found to have epidural abscess for which lumbar laminectomy was done. RODNEY grew on an operative culture and he was prescribed vancomycin with hemodialysis. Apparently there were issues with dialysis and it is not clear if he wasreceiving all doses. He was at some point changed to oral antibiotics. On May 28 he went to an ER in [place] as he was having worsening back pain and leg weakness. He was transferred to [facility]. MRI showed changes consistent with lumbar discitis/osteomyelitis/epidural abscess (see below). An IR aspiration was performed on 06/03 with GPC seen on gram stain but no growth on the culture (patient having beenon antibiotics at the time). He was seen by ID consult service and recommended to receive 8 weeks vancomycin (if dated from time of [facility] admission this would be until 07/23). Additionally during the [facility] admission he had UGI bleed and EGD was done showing mucosal abnormalities on inspection and luz forms on pathology. He was started on fluconazole. The patient states that his back pain is improving. He thinks this is in part due to more effectivepain medications. However he is also noting an improvement in leg strength. He was able to walk a short distance with walker and help of PT today. He has some nausea but no vomiting. Has no urinary hesitancy (makes small amount of urine 3-4 x/d). No diarrhea and no constipation. Had normal BM this AM. He was transplanted with a hep B liver. He has been on entecavir, states that dose was decreased from 1 mg weekly to 0.5 mg weekly a month or two ago. Most recent hep B surface antigen was positive and on 05/29 had hep B DNA detected although below limit of quantitation. ROS: Physical Exam: BP 104/52 (BP Location: Right arm, Patient Position: Lying) Pulse 98 Temp 98.4 ??F (36.9 ??C) (Axillary) Resp 20 Ht 5' 7 (1.702 m) Wt (!) 245 lb 7 oz (111.3 kg) Comment: had dialysis priorto arrrival SpO2 93% BMI 38.44 kg/m?? General appearance: alert, NAD Lungs: clear to auscultation bilaterally and no respiratory distress Heart: regular rate and rhythm, no murmur heard Abdomen: obese, soft, not tender, well healed surgical scars Has HD fistula in left forearm with palpable thrill. Has 5/5 dorsi and plantar flexors LLE and plantar flexor RLE. Right dorsi flexor is 3-4/5. He can lift both legs off bed promptly and has intact light touch sensation. Allergies: Allergies Allergen Reactions ??? Codeine Sulfate Hyper ??? Codeine Other (See Comments) Becomes hyper Current Meds: Vancomycin 1 gram IV after HD on Fluconazole 100 mg daily (for 10 more days) entecavir 0.5 mg every week cyclosporine Labs: Recent Labs 06/09/2060406/10/20 1525 WBC 4.4 5.8 HGB 7.5* 6.9* HCT 22.9* 20.8* PLT 216 283 Recent Labs 06/09/2060406/10/20 1525 NA 139 134 K 4.2 5.1 CL 99 97* CO2 30 27 BUN 22 35* CREATININE 6.03* 7.90* GLUCOSE 156* 135* Lab Results Component Value Date ALKPHOS 72 06/09/2020 ALT 3 (L) 06/09/2020 AST 11 (L) 06/09/2020 BILITOT 0.3 06/09/2020 ALBUMIN 2.9 (L) 06/10/2020 BILIDIRECT 0.08 06/08/2020 PROT 6.1 (L) 06/09/2020 Lab Results Component Value Date CKTOTAL 370 (H) 07/20/2019 Other: 05/30/2020 lumbar MRI: IMPRESSION: 1. Transitional anatomy is noted at the lumbosacral junction. The patient has 12 rib-bearing vertebral bodies, with the last rib-bearing vertebral bodies numbered as T12. L5 is sacralized. 2. Findings of osteomyelitis discitis again noted at L4-L5 with a moderate-sized epidural abscess, compressing the distal thecal sac. 3. An additional 5.1 x 2.9 x 4.4 cm fluid collection in the dorsal paraspinal soft tissues. Posterior laminectomy changes are noted at this level, the findings could represent a small postoperative seroma versus an abscess. 06/03 IR aspiration culture lumbar: GPC on stain, no growth on culture 04/29 ([facility]) OR culture: MRSE Assessment/Plan: MRSE (based on prior operative culture) lumbar vertebral osteomyelitis/discitis/epidural abscess. 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 Weekly safety labs to be done with HD Mathew Sandhu 06/11/2020 2:34 PM Pager [phone] On nights/weekends/holidays please check [facility]genda for on-call MD * Jeanine Kenyon, PT - 06/11/2020 11:50 AM EDT Physical Therapy Treatment Name: Aiden LINN: 1975 Attending Physician: Jake Zavala MD Admission Diagnosis: osteomyelitis 05/28/2020 [facility] Date: 06/11/2020 Reviewed Pertinent hospital course: Yes Hospital Course PT/OT: Aiden Stauffer??is a 45 y.o.??male??with history of liver transplant 2018 secondary to SAL, ESRD on home dialysis 5 days per week, DM who presents with 1 week of back pain, fever and AMS. ??Found to have discitis and epidural abscess on imaging.??Severe sepsis (fever, confusion, leukocytosis, lactic acidosis) in setting of immunosuppression, discitis, epidural abscess. MRIL5/S1 with osteomyelitis/discitis and fluid collection concerning for epidural abscess.??Upon arrival, neurosurgery was consulted. ??He underwent L5 laminectomy, epidural abscess I and D on 04/29 without complication. Precautions: (no restrictions on WBing) Activity Level: Activity as tolerated PT Assessment complete?: Yes OT Assessment complete?: Yes Assessment Assessment: Impaired Bed Mobility, Impaired Transfers, Impaired Gait, Impaired Balance, Impaired Strength, Impaired Safety Awareness, Impaired Sensation, Impaired Motor Control, Impaired Stair Negotiation, Impaired Activity Tolerance, Deconditioning Prognosis: Good Goals Met Goals Goals to be met by: 07/07/20 Patient will transition from supine to sit: Modified Independent, without bedrails, HOB flat(by 07/07/20.) Patient will transfer from sit to stand: Stand-By assistance, up to assistive device(to RW by 07/07/20.) Patient will transfer bed/chair: Minimal assistance(by 06/23/20.) Patient will ambulate: (150' with RW and CGA by 07/07/20.) Patient will go up / down stairs: Contact Guard assistance(4 steps with 1 railing by 07/07/20.) Patient will sit edge of bed: Modified Independent(while performing UE activity by 06/23/20.) Patient will stand: Stand-By assistance, with assistive device(x 2 mins by 07/07/20.) Stand Assistive Device: Rolling walker Miscellaneous Goal #1: (Pt will increase score on FIST by 6 points by 07/07/20.) Miscellaneous Goal #2: (Pt will be indepedent with HEP for LE strengthening by 07/07/20.) Recommendation Plan Treatment/Interventions: LE strengthening/ROM, Endurance training, Patient/family training, Equipment eval/education, Gait training, Stair Training, Neuromuscular Reeducation, Therapeutic Activity, Therapeutic Exercise, Wheelchair Mobility PT Frequency: minimum 3x/week Recommendation Recommendation: Short-term skilled PT Equipment Recommended: Defer until further assessment Problem List Patient Active Problem List Diagnosis [...] Discitis ??? Allergy, unspecified, initial encounter ??? Esophageal candidiasis (CMS Dx) ??? Obstructive sleep apnea ??? Anxiety Past Medical History Past Medical History: Diagnosis [...] TIPS PROCEDURE 10/2016 ??? TIPS Revision 04/2017 Cognition: Overall Cognitive Status: Within Functional Limits Arousal/Alertness: Alert Orientation Level: Oriented X4 Behavior: Appropriate;Cooperative Following Commands: Follows all commands and directions without difficulty Pain: Pain Score: 8 Pain Location: Abdomen Pain Descriptors: Aching Pain Intervention(s): Repositioned Exercise: Therapeutic Exercises Side: right;bilateral;left Extremity: lower extremity Type of range of motion: PROM;AROM Supine Exercises: Ankle pumps;Quad sets;Gluteal sets;Straight leg raising;ABduction/ADduction;Heel slides;Gastroc self-stretch Reps/Comments: 2x15 Mobility Recommendations for Staff Patient ability: Patient is unsafe to perform out of bed activity unless a therapist is present Patient Education Importance of participating in therapy Pt is supine upon arrival agreeable to PT. PROM hip flexion/IR/ER, knee flexion, supine hamstring stretchx3, 30 sec hold. Pt worked on LE exercises in supine to improve muscular endurance and functional mobility. Pt was repositioned for comfort, and left with call light and all needs in reach. Pt declined getting OOB due to nausea and abdominal pain. Time Start Time: 1128 Stop Time: 1147 Time Calculation (min): 19 min Charges $Therapeutic Exercise: 8-22 mins Jeanine Kenyon PT, DPT [id number] * Darling Carvajal, OT - 06/11/2020 11:40 AM EDT Occupational Therapy Reason Patient Not Seen Name: Aiden Stauffer Jr. : 1975 Attending Physician: Jake Zavala MD Admission Diagnosis: osteomyelitis 05/28/2020 [facility] Date: 06/11/2020 Precautions: Precautions: (no restrictions on WBing) Reviewed Pertinent hospital course: Yes Unable to see patient due to: Patient unwilling to participate Pt seen at 1015, declining to participate at this time d/t uncontrolled pain, claiming that he getshis pain meds at 1030 and will participate in therapy at 1130, his scheduled time. Upon arriving [id number], pt stated that he was very nauseated and unable to participate in any therapy at this time. Pt educated on benefits of therapy and getting out of bed for improvement of nausea, pt still declining despite max encouragement. Will try again as schedule permits. Christiano Camacho S/OT This therapist performed treatment planning and problem solving in collaboration with OT/S in preparation for and throughout session. Darling Russell, OTR/L License No. [id number] [facility] M-F 7:30-4:00 * Jake Zavala MD - 06/11/2020 10:35 AM EDT [facility] Hospitalist Attending Progress Note Chief Complaint / Reason for Follow-Up Aiden Stauffer Jr. is a 45 y.o. male on hospital day 3. The principal reason for today's follow up visit is Osteomyelitis ([facility] Dx). Interval History / Subjective Mr. Stauffer tolerated dialysis yesterday, but stated he had to stop early. Blood was not available in time for transfusion with dialysis because he is a difficult crossmatch. Today he reports that hispain is better controlled, and anxiety is better as well. Past medical, family, and social histories were reviewed as previously documented. Updates were made as necessary. Review of Systems (Focused) Review of Systems Constitutional: Negative for chills and fever. HENT: Negative for congestion and sore throat. Respiratory: Negative for cough, shortness of breath and wheezing. Cardiovascular: Negative for chest pain and palpitations. Gastrointestinal: Negative for abdominal pain, constipation, diarrhea, nausea and vomiting. Musculoskeletal: Positive for joint pain (improved with pain meds today) and myalgias (leg cramps).Negative for back pain. Skin: Negative for itching and rash. Neurological: Negative for dizziness and headaches. Psychiatric/Behavioral: Negative for depression. The patient is not nervous/anxious. Vital Signs Vitals: 06/11/20 0922 06/11/20 0950 06/11/20 1033 06/11/20 1112 BP: 121/47 104/52 BP Location: Right arm Right arm Patient Position: Lying Lying Pulse: 104 104 98 Resp: 18 Temp: 98.4 ??F (36.9 ??C) 98.4 ??F (36.9 ??C) TempSrc: Oral Axillary SpO2: 96% 97% 93% Weight: Height: Physical Exam Physical Exam Vitals signs and nursing note reviewed. Constitutional: General: He is not in acute distress. Appearance: He is well-developed. He is obese. HENT: Head: Normocephalic and atraumatic. Mouth/Throat: Pharynx: No oropharyngeal exudate. Eyes: General: No scleral icterus. Conjunctiva/sclera: Conjunctivae normal. Cardiovascular: Rate and Rhythm: Normal rate and regular rhythm. Heart sounds: Normal heart sounds. No murmur. Pulmonary: Effort: Pulmonary effort is normal. No respiratory distress. Breath sounds: Normal breath sounds. No wheezing. Abdominal: General: Bowel sounds are normal. There is no distension. Palpations: Abdomen is soft. Tenderness: There is no abdominal tenderness. Skin: General: Skin is warm and dry. Findings: No erythema. Neurological: Mental Status: He is alert and oriented to person, place, and time. Psychiatric: Behavior: Behavior normal. Diagnostic Studies Labs reviewed: glucose trend No imaging today. Assessment & Plan Hospital Problems Principal Problem: Osteomyelitis (CMS Dx) Active Problems: Essential (primary) hypertension Type 2 diabetes mellitus with diabetic chronic kidney disease (CMS Dx) Immunosuppression for liver transplant (CMS Dx) ESRD (end stage renal disease) (CMS Dx) Prophylaxis for cytomegalovirus Anemia, unspecified Esophageal candidiasis (CMS Dx) Obstructive sleep apnea Anxiety Today's Plan Anemia, unspecified- (present on admission) Will transfuse tomorrow with dialysis. No IV access to give blood, and he would prefer to get it with dialysis. Not symptomatic other than feeling a little run down. PLAN: ?? Transfuse 1 unit of packed red blood cells on Monday. Immunosuppression for liver transplant (CMS Dx)- (present on admission) The patient is on cyclosporine. Will need weekly labs while on fluconazole. He is also taking entecavir chronically (donor was hepatitis B positive). PLAN: ?? Continue cyclosporine 75 mg PO BID ?? Continue entecavir 0.5 mg PO weekly ?? Check cyclosporine levels every Monday Type 2 diabetes mellitus with diabetic chronic kidney disease ([facility] Dx)- (present on admission) Fasting glucose was unchanged from bedtime; basal insulin dose appears appropriate. PLAN: ?? Continue insulin glargine 10 units subcutaneous QHS ?? Continue insulin lispro 4 units subcutaneous QAC ?? Continue insulin lispro correction 0-5 units subcutaneous QAC per low-dose scale ?? Fingersticks QAC/QHS Essential (primary) hypertension- (present on admission) The patient's blood pressure is within goal. BP: 104/52 PLAN: ?? Continue hydralazine 100 mg PO Q8H ?? Continue nifedipine XR 90 mg PO BID ?? Continue metoprolol 25 mg PO BID ?? Continue terazosin 10 mg PO QHS Inpatient Management: ?? Diet: regular thin ?? IV fluids: none ?? Pain management: acetaminophen, oxycodone, gabapentin ?? Lines: Tunneled HD catheter ?? DVT prophylaxis: heparin (dialysis) ?? Precautions/Isolation: none ?? Ambulation: as tolerated ?? Restraints: none Ancillary services: PT, OT and Wound Care ?? Patient status: inpatient ?? Code status: Full Code Jake Zavala MD 06/11/2020 1:40 PM * Maru Benedict RN - 06/11/2020 3:20 AM EDT Patient is alert and oriented. Resting quietly in bed. No signs of injury. Currently in no acute distress. Patient's left arm fistula intact with positive Bruit and thrill. Bed in low position. Call light within reach. Educated to use call light for assistance. Will continue to monitor. Vitals: 06/10/202017 BP: 143/87 Pulse: 107 Resp: 18 Temp: 98.9 ??F (37.2 ??C) SpO2: 92% MARU BENEDICT RN 06/11/2020 3:20 AM * Maru Benedict RN - 06/10/2020 8:10 PM EDT Pt was picked up from dialysis area unit back to floor unit. No distress noted. Denies pain at thistime will monitor. * Jake Zavala MD - 06/10/2020 5:41 PM EDT Interval Progress Note Spoke with Dr. Orourke, Infection Dry Room Attendant, regarding isolation for Mr. Stauffer during dialysis. He is hepatitis B positive with detectable but un- quantifiable viral load (below limit of detection for assay). He said that it would be acceptable for him to run in the unit at the same time as a hepatitis B-negative patient as long as there is physical separation between them. Jake Zavala MD 06/10/2020 5:41 PM * Jake Zavala MD - 06/10/2020 2:28 PM EDT [facility] Hospitalist Attending Progress Note Chief Complaint / Reason for Follow-Up Aiden Stauffer Jr. is a 45 y.o. male on hospital day 2. The principal reason for today's follow up visit is Osteomyelitis ([facility] Dx). Interval History / Subjective Mr. Stauffer reports that his anxiety is better today, but R leg pain is worse. He seems to be in better spirits. We discussed his concerns about ultrafiltration goal with nephrology (Dr. Bowie was finishing her exam when I came to see him). We agreed on goal of 1 L removal. Past medical, family, and social histories were reviewed as previously documented. Updates were made as necessary. Review of Systems (Focused) Review of Systems Constitutional: Negative for chills and fever. HENT: Negative for congestion and sore throat. Respiratory: Negative for cough, shortness of breath and wheezing. Cardiovascular: Negative for chest pain and palpitations. Gastrointestinal: Negative for abdominal pain, constipation, diarrhea, nausea and vomiting. Musculoskeletal: Positive for joint pain (HIP) and myalgias (leg cramps). Negative for back pain. Skin: Negative for itching and rash. Neurological: Negative for dizziness and headaches. Psychiatric/Behavioral: Negative for depression. The patient is not nervous/anxious. Vital Signs Vitals: 06/09/20 2328 06/10/20 0125 06/10/20 0500 06/10/20 1305 BP: 147/84 119/60 BP Location: Right arm Right arm Patient Position: Lying Lying Pulse: 105 102 95 Resp: 18 18 18 Temp: 98.6 ??F (37 ??C) 98.3 ??F (36.8 ??C) TempSrc: Oral Oral SpO2: 95% 96% 91% 92% Weight: Height: Physical Exam Physical Exam Vitals signs and nursing note reviewed. Constitutional: General: He is not in acute distress. Appearance: He is well-developed. He is obese. HENT: Head: Normocephalic and atraumatic. Mouth/Throat: Pharynx: No oropharyngeal exudate. Eyes: General: No scleral icterus. Conjunctiva/sclera: Conjunctivae normal. Cardiovascular: Rate and Rhythm: Normal rate and regular rhythm. Heart sounds: Normal heart sounds. No murmur. Pulmonary: Effort: Pulmonary effort is normal. No respiratory distress. Breath sounds: Normal breath sounds. No wheezing. Abdominal: General: Bowel sounds are normal. There is no distension. Palpations: Abdomen is soft. Tenderness: There is no abdominal tenderness. Skin: General: Skin is warm and dry. Findings: No erythema. Neurological: Mental Status: He is alert and oriented to person, place, and time. Psychiatric: Behavior: Behavior normal. Diagnostic Studies Labs reviewed: renal, LFT, CBC (Hgb 7.5), hemoglobin A1C (6.5), glucose trend No imaging today. Assessment & Plan Hospital Problems Principal Problem: Osteomyelitis (CMS Dx) Active Problems: Essential (primary) hypertension Type 2 diabetes mellitus with diabetic chronic kidney disease (CMS Dx) Immunosuppression for liver transplant (CMS Dx) ESRD (end stage renal disease) (CMS Dx) Prophylaxis for cytomegalovirus Esophageal candidiasis (CMS Dx) Obstructive sleep apnea Anxiety Today's Plan * Osteomyelitis (CMS Dx)- (present on admission) On vancomycin for MRSE. Infectious diseases is following. PLAN: ?? Continue vancomycin with dialysis ?? Safety labs weekly Obstructive sleep apnea Does not want to use our CPAP. PLAN: ?? Can use home unit if brought in Type 2 diabetes mellitus with diabetic chronic kidney disease ([facility] Dx)- (present on admission) Remains above goal. Will increase insulin PLAN: ?? Increase insulin glargine from 5 units to 10 units subcutaneous QHS ?? Start insulin lispro 4 units subcutaneous QAC ?? Continue insulin lispro correction 0-5 units subcutaneous QAC per low-dose scale ?? Fingersticks QAC/QHS Essential (primary) hypertension- (present on admission) The patient's blood pressure is within goal. BP: 119/60 PLAN: ?? Continue hydralazine 100 mg PO Q8H ?? Continue nifedipine XR 90 mg PO BID ?? Continue metoprolol 25 mg PO BID ?? Continue terazosin 10 mg PO QHS Anemia, unspecified- (present on admission) Hemoglobin dropped to 6.9 today. Likely due to chronic kidney disease. Getting epo, but will transfuse. PLAN: ?? Transfuse 1 unit of packed red blood cells Inpatient Management: ?? Diet: regular thin ?? IV fluids: none ?? Pain management: acetaminophen, oxycodone, gabapentin ?? Lines: Tunneled HD catheter ?? DVT prophylaxis: heparin (dialysis) ?? Precautions/Isolation: none ?? Ambulation: as tolerated ?? Restraints: none Ancillary services: PT, OT and Wound Care ?? Patient status: inpatient ?? Code status: Full Code Jake Zavala MD 06/10/2020 5:40 PM * Maru Bianchi RN - 06/10/2020 11:30 AM EDT Patient is alert, resting in bed at this time. ?? Patient is able to communicate needs appropriately and states having sharp pain in bilateral lower extremities, rates it 8/10. 10 mg of PRN oxycodone given. Patient stated having nausea after therapy. PRN phenergan given. ?? Patient has fistula in left forearm. Bruit and thrill present, no signs of infection. Patient scheduled for HD this afternoon. ?? Patient given extra blankets, turned off lights, and orders patient's lunch per request. ?? Call light and television remote in reach. * Tanamaria luisa Rosales, SCHWARTZ/L - 06/10/2020 8:53 AM EDT Occupational Therapy [facility] Occupational Therapy Daily Note Name: Aiden Stauffer JrUbaldo : 1975 Attending Physician: Jake Zavala MD Admission Diagnosis: osteomyelitis 05/28/2020 [facility] Date: 06/10/2020 Reviewed Pertinent hospital course: Yes Hospital Course PT/OT: Aiden Stauffer??is a 45 y.o.??male??with history of liver transplant 2018 secondary to SAL, ESRD on home dialysis 5 days per week, DM who presents with 1 week of back pain, fever and AMS. ??Found to have discitis and epidural abscess on imaging.??Severe sepsis (fever, confusion, leukocytosis, lactic acidosis) in setting of immunosuppression, discitis, epidural abscess. MRIL5/S1 with osteomyelitis/discitis and fluid collection concerning for epidural abscess.??Upon arrival, neurosurgery was consulted. ??He underwent L5 laminectomy, epidural abscess I and D on 04/29 without complication. Precautions: (no restrictions on WBing) Activity Level: Activity as tolerated PT Assessment complete?: Yes OT Assessment complete?: Yes Brief Assessment Assessment: Decreased UE strength, Decreased activity tolerance, Decreased Functional Mobility, Decreased ADL status, Decreased sensation, Decreased self- care transfers, Decreased Balance, Decreased IADLs, Decreased Safe judgment during ADL Prognosis for OT goals: Good Goals Goals to be met in: in 4 weeks (07/10) Patient stated goal: to go home Patient will complete supine to sit in prep for ADLs: Independent(in 4 weeks (07/10)) Patient will complete functional chair transfer: Contact Guard assistance(in 4 weeks (07/10)) Patient will complete toilet transfer: Contact Guard assistance(in 4 weeks (07/10)) Patient will complete toileting: Stand-by assistance(in 4 weeks (07/10)) Patient will complete upper body dressing: Independent(in 4 weeks (07/10)) Patient will complete lower body dressing: Minimal assistance(in 4 weeks (07/10)) Patient will complete upper body bathing : Modified Independent(in 4 weeks (07/10)) Patient will complete lower body bathing : Stand-by assistance(in 4 weeks (07/10)) Pt Will participate in upper extremity HEP to prep for ADLs: : ongoing Miscellaneous Goal #1: Pt will ambulate household distances with RW and CGA Pipe Supervisor Goal : Pt will increase score on Dylon Index by 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 to be met in: 6 weeks Collaborated with: Patient Recommendation Plan Treatment Interventions: ADL retraining, UE strengthening/ROM, Compensatory technique education, Lower Extremity Intervention, Equipment eval/education, Activity Tolerance training, Therapeutic Activity, Neuro muscular reeducation, Energy Conservation, Functional transfer training, Excercise OT Frequency: minimum 3x/week Recommendation Recommendation: Short-term skilled OT Cognition Overall Cognitive Status: Within Functional Limits Cognitive Assessment: Arousal/ Alertness;Orientation Level;Behavior Arousal/Alertness: Alert Orientation Level: Oriented X4 Behavior: Appropriate;Cooperative Following Commands: Follows all commands and directions without difficulty Safety Judgment: Good awareness of safety precautions Insight: Demonstrated intact insight into limitation and abilities to complete ADL's safely Pain Pain Score: (increased pain in L hip with mobility ) Pain Location: Leg Pain Descriptors: Aching;Discomfort Pain Intervention(s): Repositioned Mobility Bed Mobility Rolling: Supervision Supine to Sit: Contact Guard assistance;of 2 people;head of bed elevated;increased time to completetask;use of handrail Functional Transfers Sit to Stand: Minimal assistance;of 2 people Bed to Chair: Minimal assistance;of 2 people;stand step;with assistive device Bed to Chair Assistance Device: Rolling walker Functional Mobility: Minimal assitance;of 2 people;Cues for proper positioning;with assistive device;increased time to complete task Balance Sitting - Static: Stand-by assistance Sitting - Dynamic: Contact Guard Assistance Standing - Static: Minimal Assistance Standing-Static Asssistance Device: Rolling walker Standing - Dynamic: Minimal Assistance;2 Person Assistance Standing-Dynamic Assistance Device: Rolling walker Exercises ADL Lower Body Dressing: Total assistance Lower Body Dressing Deficit: Don/doff L sock;Don/doff R sock(socks only) Instrumental Activities of Daily Living Position after Treatment and Safety Handoff Position after therapy session: Recliner Details: Call light/ needs within reach Alarms: Chair Alarms Status: Activated and Interfaced with call system Patient Education: Role of OT; Progressing therapy Time Start Time: 809 Stop Time: 834 Time Calculation (min): 25 min Charges $Therapeutic Activity: 8-22 mins - 1 unit cotx Pt supine in bed upon arrival and agreeable to therapy. Pt seen as co tx this date as pt requiring the skills of two therapists to maximize therapeutic outcomes as well as to maximize safety for both pt and therapists. Pt continues with significant pain though demonstrated improved mobility this date. Improved bed mobility noted with min cueing for technique. RW issued for transfer and pt demonstrated fair understanding of use, min cueing needed for transfer technique. Increased time needed throughout for all mobility. Pt would benefit from long handled equipment for LE dressing as pt unable to don socks EOB and performs EOB with little trunk flexion secondary to pain. Plan to initiate long handled equipment next tx session. Continue per POC in collaboration with MERARYR/LISA Hernandez Continue per POC in collaboration with MERARYR/LISA Hernandez Cosigned by Darling Carvajal OT at 06/15/2020 10:14 AM EST Associated attestation - Darling Carvajal OT - 06/15/2020 10:14 AM EST KODAK Harp/Margaret [id number] * Jeanineandrew Kenyon, PT - 06/10/2020 8:44 AM EDT Physical Therapy Treatment Name: Aiden Stauffer Jr. : 1975 Attending Physician: Jake Zavala MD Admission Diagnosis: osteomyelitis 05/28/2020 [facility] Date: 06/10/2020 Reviewed Pertinent hospital course: Yes Hospital Course PT/OT: Aiden Stauffer??is a 45 y.o.??male??with history of liver transplant 2018 secondary to SAL, ESRD on home dialysis 5 days per week, DM who presents with 1 week of back pain, fever and AMS. ??Found to have discitis and epidural abscess on imaging.??Severe sepsis (fever, confusion, leukocytosis, lactic acidosis) in setting of immunosuppression, discitis, epidural abscess. MRIL5/S1 with osteomyelitis/discitis and fluid collection concerning for epidural abscess.??Upon arrival, neurosurgery was consulted. ??He underwent L5 laminectomy, epidural abscess I and D on 04/29 without complication. Precautions: (no restrictions on WBing) Activity Level: Activity as tolerated PT Assessment complete?: Yes OT Assessment complete?: Yes Assessment Assessment: Impaired Bed Mobility, Impaired Transfers, Impaired Gait, Impaired Balance, Impaired Strength, Impaired Safety Awareness, Impaired Sensation, Impaired Motor Control, Impaired Stair Negotiation, Impaired Activity Tolerance, Deconditioning Prognosis: Good Goals Met Goals Goals to be met by: 07/07/20 Patient will transition from supine to sit: Modified Independent, without bedrails, HOB flat(by 07/07/20.) Patient will transfer from sit to stand: Stand-By assistance, up to assistive device(to RW by 07/07/20.) Patient will transfer bed/chair: Minimal assistance(by 06/23/20.) Patient will ambulate: (150' with RW and CGA by 07/07/20.) Patient will go up / down stairs: Contact Guard assistance(4 steps with 1 railing by 07/07/20.) Patient will sit edge of bed: Modified Independent(while performing UE activity by 06/23/20.) Patient will stand: Stand-By assistance, with assistive device(x 2 mins by 07/07/20.) Stand Assistive Device: Rolling walker Miscellaneous Goal #1: (Pt will increase score on FIST by 6 points by 07/07/20.) Miscellaneous Goal #2: (Pt will be indepedent with HEP for LE strengthening by 07/07/20.) Recommendation Plan Treatment/Interventions: LE strengthening/ROM, Endurance training, Patient/family training, Equipment eval/education, Gait training, Stair Training, Neuromuscular Reeducation, Therapeutic Activity, Therapeutic Exercise, Wheelchair Mobility PT Frequency: minimum 3x/week Recommendation Recommendation: Short-term skilled PT Equipment Recommended: Defer until further assessment Problem List Patient Active Problem List Diagnosis [...] Discitis ??? Allergy, unspecified, initial encounter ??? Esophageal candidiasis (CMS Dx) ??? Obstructive sleep apnea ??? Anxiety Past Medical History Past Medical History: Diagnosis [...] TIPS PROCEDURE 10/2016 ??? TIPS Revision 04/2017 Cognition: Overall Cognitive Status: Within Functional Limits Arousal/Alertness: Alert Orientation Level: Oriented X4 Pain: Pain Score: 8 Pain Location: Leg Pain Descriptors: Aching;Discomfort Pain Intervention(s): Repositioned Mobility: Bed Mobility Supine to Sit: CGA Transfers Sit to Stand: Minimal assistance;of 2 people;from elevated surface(RW) Bed to Chair: Minimal assistance;of 2 people;stand step;with assistive device(RW) Balance Sitting - Static: Stand-by assistance Sitting - Dynamic: Contact Guard Assistance Standing - Static: Min A RW Standing - Dynamic: Not Tested Position after Treatment and Safety Handoff Position after therapy session: Recliner Details: Call light/ needs within reach Alarms: Chair Alarms Status: Activated and Interfaced with call system Mobility Recommendations for Staff Patient ability: Patient is unsafe to perform out of bed activity unless a therapist is present Patient Education Benefits of getting OOB, hand placement with transfers Pt is supine upon arrival agreeable to co-tx with OT to safely mobilize pt. Supine to sit CGA, CGA/SBA to maintain sitting balance, pt tolerated EOB 5 min, sit>stand to RW min Ax2, stand step to recliner min A x2 with RW. Pt was positioned for comfort, and left with call light and all needs in reach, pt with c/o increased pain in R hip while in a chair, declined being repositioned or ice pack,RN at bedside. Time Start Time: 809 Stop Time: 834 Time Calculation (min): 25 min Charges $Therapeutic Activity: 1 unit (-1 co-tx with OT) Jeanine Kenyon PT, DPT [id number] * Kelsie Scanlon, PharmD - 06/10/2020 7:58 AM EDT Images from the original note were not included. Clinical Pharmacy Service - Vancomycin Progress Note Aiden Stauffer is a 45 y.o. male on vancomycin. Pharmacy consulted by the primary team to manage vancomycin dosing. Current Anti-Infectives Dose Frequency Start End entecavir (BARACLUDE) tablet 0.5 mg 0.5 mg Every 7 days 06/09/2020 Admin Instructions: ADMINISTER ON EMPTY STOMACH (2 HOURS BEFORE OR AFTER MEALS).
LEVEL 2 HAZARDOUS MEDICATION Route: Oral fluconazole (DIFLUCAN) tablet 200 mg 200 mg Daily 06/09/2020 Route: Oral vancomycin (VANCOCIN) 1,000 mg in sodium chloride 0.9% 250 mL ADDaptor IVPB 1,000 mg Once 06/10/2020 06/11/2020 Admin Instructions: Please give dose after dialysis
Use ADDaptor product - Mix Thoroughly Before Administration Route: Intravenous vancomycin intermittent/pulse dosing PLACEHOLDER ORDER Use as directed PRN 06/08/2020 Admin Instructions: Patient is receiving intermittent/pulse vancomycin dosing based on random serumlevels. NOTE:This is NOT an active medication order. If a dose of vancomycin is needed, it must be entered as a one-time dose by physicians or pharmacists. Route: Intravenous Wt Readings from Last 3 Encounters: 06/08/20 (!) 245 lb 7 oz (111.3 kg) 06/07/20 (!) 251 lb 15.8 oz (114.3 kg) 03/16/20 (!) 278 lb (126.1 kg) WBC, BUN, Creatinine (Last 7 days) WBC BUN Creatinine 4.4 10E3/uL 06/09/20 0605 22 mg/dL 06/09/20 0605 6.03 mg/dL 06/09/20 0605 5.3 10E3/uL 06/08/20 0720 49 mg/dL 06/08/20 0720 11.23 mg/dL 06/08/20 0720 5.3 10E3/uL 06/07/20 0727 44 mg/dL 06/07/20 0727 10.02 mg/dL 06/07/20 0727 Lab Results (Last 7 days) Vanc Rdm Vanc Tr 18.0 ug/mL 06/09/20 0605 15.5 ug/mL 06/10/20 0533 15.5 ug/mL 06/07/20 0727 17.5 ug/mL 06/05/20 1200 Microbiology Results Date and Time Order Name Sensitivity Status Organisms Specimen ID Source 06/03/2020 0831 Anaerobic culture Final [id number] Back 06/03/2020 0831 Routine Culture plus Stain Final [id number] Back 05/28/2020 1541 #1 Blood culture-Peripheral Final [id number] Peripheral 05/28/2020 1404 #2 Blood culture-Peripheral Final [id number] Peripheral Current SCr: 6.03 mg/dL as of 06/09/20 Pertinent allergies: None related to antibiotics Indication: osteomyelitis/discitis Goal Trough: 15-20 mg/L Tentative stop date: 07/22/20 per ID at [facility] MWF ID to follow up at [place] Assessment and Plan ?? Patient is being treated with vancomycin for osteomyelitis/discitis ?? Currently receiving vancomycin pulse dosing during the last hour of dialysis on MWF ?? Vancomycin level drawn before dialysis this morning therapeutic at 15.5 mcg/mL ?? Continue current vancomycin dose at 1000 mg during the last hour of dialysis on MWF given 4 consistent therapeutic levels. ?? Check next vancomycin level prior to hemodialysis session on 06/12/20 @ 0600 ?? Pharmacy will continue to monitor therapy for efficacy and toxicity Thank you for the consult KELSIE SCANLON PharmD 06/10/2020 7:58 AM Phone: [phone] For clinical pharmacy assistance after 4pm or on weekends, please call [phone] * Maru Benedict RN - 06/10/2020 4:20 AM EDT Aiden Stauffer Jr. alert and oriented x 4. Pt able to make needs known. Pt take meds as ordered without difficulties. Pt with c/o pain 03/23 to bilateral lower ext. Pt with relief with medication, in bed with no acute distress noted, call light in reach. Will continue POC. MARU BENEDICT 06/10/2020 * Rose Forte, PT - 06/09/2020 3:44 PM EDT Physical Therapy [facility] Physical Therapy Initial Assessment Name: Aiden Stauffer Jr. : 1975 Attending Physician: Jake Zavala MD Admission Diagnosis: osteomyelitis 05/28/2020 [facility] Date: 06/09/2020 Reviewed Pertinent hospital course: Yes Hospital Course PT/OT: Aiden Stauffer??is a 45 y.o.??male??with history of liver transplant 2018 secondary to SAL, ESRD on home dialysis 5 days per week, DM who presents with 1 week of back pain, fever and AMS. ??Found to have discitis and epidural abscess on imaging.??Severe sepsis (fever, confusion, leukocytosis, lactic acidosis) in setting of immunosuppression, discitis, epidural abscess. MRIL5/S1 with osteomyelitis/discitis and fluid collection concerning for epidural abscess.??Upon arrival, neurosurgery was consulted. ??He underwent L5 laminectomy, epidural abscess I and D on 04/29 without complication. Precautions: (no restrictions on WBing) Activity Level: Activity as tolerated PT Assessment complete?: Yes OT Assessment complete?: Yes Assessment Assessment: Impaired Bed Mobility, Impaired Transfers, Impaired Gait, Impaired Balance, Impaired Strength, Impaired Safety Awareness, Impaired Sensation, Impaired Motor Control, Impaired Stair Negotiation, Impaired Activity Tolerance, Deconditioning secondary to anticipated level of skilled assistance required to safely treat and mobilize patient Prognosis: Good Goals Goals to be met by: 07/07/20 Patient will transition from supine to sit: Modified Independent, without bedrails, HOB flat(by 07/07/20.) Patient will transfer from sit to stand: Stand-By assistance, up to assistive device(to RW by 07/07/20.) Patient will transfer bed/chair: Minimal assistance(by 06/23/20.) Patient will ambulate: (150' with RW and CGA by 07/07/20.) Patient will go up / down stairs: Contact Guard assistance(4 steps with 1 railing by 07/07/20.) Patient will sit edge of bed: Modified Independent(while performing UE activity by 06/23/20.) Patient will stand: Stand-By assistance, with assistive device(x 2 mins by 07/07/20.) Stand Assistive Device: Rolling walker Miscellaneous Goal #1: (Pt will increase score on FIST by 6 points by 07/07/20.) Miscellaneous Goal #2: (Pt will be indepedent with [facility] for LE strengthening by 07/07/20.) Recommendation Plan Treatment/Interventions: LE strengthening/ROM, Endurance training, Patient/family training, Equipment eval/education, Gait training, Stair Training, Neuromuscular Reeducation, Therapeutic Activity, Therapeutic Exercise, Wheelchair Mobility PT Frequency: minimum 3x/week Recommendation Recommendation: Short-term skilled PT Equipment Recommended: Defer until further assessment Problem List Patient Active Problem List Diagnosis ??? Essential (primary) hypertension ??? Type 2 diabetes mellitus with diabetic chronic kidney disease ([facility] Dx) ??? Liver transplanted ([facility] Dx) ??? Immunosuppression ([facility] Dx) ??? Abnormal stress test ??? ESRD (end stage renal disease) (CMS Dx) ??? Prophylaxis for cytomegalovirus ??? Anemia, unspecified ??? Osteomyelitis (CMS Dx) ??? Vitamin D deficiency, unspecified ??? Secondary hyperparathyroidism of renal origin (CMS Dx) ??? Epidural abscess ??? Disorder of phosphorus metabolism, unspecified ??? Discitis ??? Allergy, unspecified, initial encounter ??? Esophageal candidiasis (CMS Dx) ??? Obstructive sleep apnea Past Medical History Past Medical History: Diagnosis [...] TIPS PROCEDURE 10/2016 ??? TIPS Revision 04/2017 Patient Stated Goals Pt would like to get home in 2 weeks. Pt would like to returned to previous level of function. Home Living/Prior Function Patient able to provide accurate information at this time: Yes Lives With: Spouse;Family Assistance available: 24 hour assistance Type of Home: House Home Entry: More than 1 step to enter(4-5 steps to enter with railing) Stairs to enter: 5 steps with railing Home Layout: One level Bathroom Shower/Tub: Walk-in shower Bathroom Toilet: Standard Bathroom Equipment: Shower chair Home Equipment: (shower chair) Prior Function Functional Mobility: Independent ( no assistive device) Receives Help From: Family ADL Assistance: Independent IADL Assistance: Independent Vocation: (Pt reports he is retired. ) Comments: (Pt reports he has been driving everyday. ) Pain Pt did not rate pain in LEs, reports he has achy but sharp pain in LEs especially in R hip to knee.OT informed pt's nurse of pt's request for pain pill. Therapists discussed with pt getting pain meds ~1 hour prior to therapy session. Vision Vision/Perception Overall Vision/ Perception: Within Functional Limits Cognition Overall Cognitive Status: Within Functional Limits Arousal/Alertness: Alert Orientation Level: Oriented X4 Behavior: Appropriate;Motivated Following Commands: Follows all commands and directions without difficulty Safety Judgment: Good awareness of safety precautions Insight: Demonstrated intact insight into limitation and abilities to complete ADL's safely Neuromuscular Overall Sensation: (reports numbness in B feet since his transplant. Pt also reports he is not ableto feel where his LEs are at times. ) Additional Comments: numbness in feet per pt report Upper Extremity UE Assessment: Defer to OT evaluation for formal assessment Lower Extremity Lower Extremity LE Assessment: (AROM WFL except weak R ankle DF, to neutral. Pt's strength is grossly 3+/5 in hip flex, knee flex/ext, ankle PF. Ankle DF 2/5 on R and 3/5 on L. ) Functional Mobility Bed Mobility Rolling: Stand by assistance;towards the right;towards the left;use of handrail(Able to scoot self up in bed using head of bed to pull up on independently. ) Supine to Sit: (mod assist from OT with pt pulling up on his hand. ) Sit to Supine: Minimal assistance(for LE ) Transfers Sit to Stand: (unable to tolerate due to pain) Bed to Chair: (unable to tolerate due to pain) Balance Sitting - Static: Contact Guard Assistance(pt uses B UEs to take weight off of his back in sitting,very guarded. ) Sitting-Dynamic: Contact Guard Assistance(with L UE taking some weight off of his back while movingR UE for OT assessment. ) Position after Therapy and Safety Handoff Position after treatment and safety handoff Position after therapy session: Bed Details: Call light/ needs within reach;RN notified Alarms: Bed Alarms Status: Activated and not able to be interfaced (ICU) Outcome Measures Function in Sitting Test (FIST) 0=dependent 1=needs assistance (note level) 2=UE support 3=v/c or inc time 4=independent Anterior nudge 0 Posterior nudge 0 Lateral nudge 0 Static sitting 30sec 2 Shake no L and R 2 Eyes closed 30sec 0 Lift foot 1?? twice 0 auger supervisor object from behind 0 Forward reach (full range) 0 Lateral reach (clear opposite ischial tuberosity) 0 auger supervisor object from floor 0 Posterior scoot 2?? 0 Anterior scoot 2?? 0 Lateral scoot 2?? 0 TOTAL MDC=6 for goal setting Patient Education Pt was educated on role of therapy, asking for pain meds prior to therapy to increase tolerance to activity. Pt also educated on goals and plan of care with pt, pt agreed. Pt was seen with OT due to increased level of assist. Pt was agreeable, apprehensive about pain andanxiety and wanted therapists to know when he says he needs to lie down he will need to do so quickly. Pt performed LE assessment in supine prior to sitting up. Pt sat up on the EOB, uses UEs to takeweight off of his back and leans heavily to L side to off weight R hip completely. Pt performed R UE MMT with OT and had pain in back,needing to lie down. Pt positions self with SBA with heavy use ofUEs to scoot self up in the bed. Pt allowed HOB to ~25 degrees but did not tolerate any more than that. Nurse reports pt had pain meds at ~9:00 this am, more than 4 hours ago. Pt would benefit from having pain and anxiety meds ~1 hour prior to therapy in the future. Pt was left in bed, needs in reach, set up with lunch tray. Fall Prevention Reviewed fall tip card with patient, providing education on utilizing call light to have assistancefor OOB activity or when something is out of reach, recommendation to wear non-skid socks when out of bed, importance of utilizing recommended assistive devices and equipment, environments that increase fall risk, and purpose of bed and chair alarms as needed. Section GG Section [id number] (Admission Only) 3 CODING 3- Independent- Patient completed task by him/herself with or without AD, with no assistance from ahelper 2- Needed Some Help- Patient needed partial assistance from another person to complete activities 1- Dependent- A helper completed the activities for the patient 8- Unknown 9- Not applicable- if the activity was not applicable prior to current illness, exacerbation or injury. Indoor Mobility (Ambulation): Code the patient???s need for assistance with walking from room to room (with or without a device such as a cane, crutch, or walker) prior to current illness, exacerbation or injury. Section [id number] (Admission Only) z A- Manual w/c B- Mechanical w/c C- Mechanical Lift Z- None of the Above Prior Device Use. Indicate devices and aides used prior to current illness, exacerbation or injury. List all that apply. Section [id number] Mobility Admit Status Goal D/C Status CODING Code for patient???s usual performance: 06- Independent (Mod I/ I) 05- Setup and clean-up assistance (S/U) 04- Supervision or touching assistance (S, SBA, CGA) 03- Partial/moderate assistance (Min A/Mod A) 02- Substantial/maximal assistance (Max A) 01- Dependent (assist of 2 or more) Roll left and right: The ability to roll from lying on back to left and right and return to lying on back on bed. 04 06 Sit to lying: The ability to move from sitting on side of bed to lying flat on the bed. 03 06 Lying to sitting on side of bed: The ability to move from lyingon the back to sitting on the side of the bed with feet flat on the floor and with no back support. 03 06 Sit to stand: The ability to come to standing position from sitting in a chair, w/c, or on the sideof the bed. 88 04 Chair/[id number] transfer: The ability to transfer to and from a bed to a chair or wheelchair. 8804 If activity was not attempted, code reason: 07-Patient refused 09-Not applicable 88- Not attempted due to medical condition or safety concerns 10- Not attempted due to environmental limitations Walk 10 feet: Once standing, the ability to walk at least 10 feet in a room, corridor, or similar space. If admission performance is coded 07, 09, 10, 88, SKIP to question, ???does the patient use a w/c and/or scooter? 88 04 Walk 50 feet with two turns: Once standing, the ability to walk 50 feet and make two turns. 88 04 Walk 150 feet: Once standing, the ability to walk at least 150 feet in a corridor or similar space.88 04 Does the patient use a wheelchair/ scooter? Code for wheelchair/scooter type: 1-Manual 2-Motorized Wheel 50 feet with 2 turns: Once seated in w/c /scooter, the ability to wheel at least 50 feet and make two turns. 88 04 Indicate type of wheelchair or scooter used. 1 Wheel 150 feet: Once seated in w/c /scooter, the ability to wheel at least 150 feet in a corridor or similar space. 88 04 Indicate type of wheelchair or scooter used. 1 Time Start Time: 1300 Stop Time: 1340 Time Calculation (min): 40 min Charges $PT Evaluation Mod Complex 30 Min: 1 Procedure PT EVAL CODE and COMPLEXITY 24308 MODERATE History, personal factors, and co-morbidities impacting POC Essential (primary) hypertension Type 2 diabetes mellitus with diabetic chronic kidney disease (CMS Dx) Liver transplanted (CMS Dx) Immunosuppression (CMS Dx) Abnormal stress test ESRD (end stage renal disease) (CMS Dx) Prophylaxis for cytomegalovirus Anemia, unspecified Osteomyelitis (CMS Dx) Vitamin D deficiency, unspecified Secondary hyperparathyroidism of renal origin (CMS Dx) Epidural abscess Disorder of phosphorus metabolism, unspecified Discitis Allergy, unspecified, initial encounter Esophageal candidiasis (CMS Dx) Obstructive sleep apnea Examination of body systems: body parts and functions, activity limitations, and/or participation restrictions ROM: WFL Strength: BLEs grossly 3+/5 except R ankle DF 2/5 Bed mobility: Mod assist of 1 Clinical Presentation/Stability Evolving with changing Clinical Decision Making and Development of POC Moderate Complexity using standardized assessments and /or measurable assessment of functional outcome Face to Face Time with Patient and/or Family Typically, 15 minutes Physical Therapy Evaluation Summary: Pt presents with decreased strength and sensation needing assist of 1-2 for bed mobility. Pt did not tolerate sitting well due to pain. Pt would benefit from scheduling pain meds before treatment to progress with strengthening, transfers and walking with RW. Informed consent of treatment was given??today by patient Patient may be seen by another PT or MANAGER RECRUITING??during their stay Transfer status placed on patient's white board with patient consent $Therapeutic Activity: 1 unit, -1 cotreat with OT Rose Forte, PT [id number] * Darling Carvajal, OT - 06/09/2020 3:16 PM EDT Occupational Therapy [facility] Occupational Therapy Initial Assessment Name: Aiden Oviedo Eh Marques : 1975 Attending Physician: Jake Zavala MD Admission Diagnosis: osteomyelitis 05/28/2020 [facility] Date: 06/09/2020 Reviewed Pertinent hospital course: Yes Hospital Course PT/OT: Aiden Stauffer Jr. is a 45 y.o. male with a history of ESRD on HD at home (MTuThFSa), SAL cirrhosis s/p liver transplant 2017, pulmonary HTN, JC, DM2, HTN, obesity presentingto the hospital as direct admission with complaint of subacute low back pain and weakness followingspinal surgery. Precautions: n/a Activity Level: Activity as tolerated PT Assessment complete?: Yes OT Assessment complete?: Yes Assessment Assessment: Decreased UE strength, Decreased activity tolerance, Decreased Functional Mobility, Decreased ADL status, Decreased sensation, Decreased self- care transfers, Decreased Balance, Decreased IADLs, Decreased Safe judgment during ADL secondary to anticipated level of skilled assistance required to safely treat and mobilize patient Prognosis for OT goals: Good Goals Goals to be met in: in 4 weeks (07/10) Patient stated goal: to go home Patient will complete supine to sit in prep for ADLs: Independent(in 4 weeks (07/10)) Patient will complete functional chair transfer: Contact Guard assistance(in 4 weeks (07/10)) Patient will complete toilet transfer: Contact Guard assistance(in 4 weeks (07/10)) Patient will complete toileting: Stand-by assistance(in 4 weeks (07/10)) Patient will complete upper body dressing: Independent(in 4 weeks (07/10)) Patient will complete lower body dressing: Minimal assistance(in 4 weeks (07/10)) Patient will complete upper body bathing : Modified Independent(in 4 weeks (07/10)) Patient will complete lower body bathing : Stand-by assistance(in 4 weeks (07/10)) Pt Will participate in upper extremity HEP to prep for ADLs: : ongoing Miscellaneous Goal #1: Pt will ambulate household distances with RW and CGA Pipe Supervisor Goal : Pt will increase score on Dylon Index by 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 to be met in: 6 weeks Collaborated with: Patient Recommendation Plan Treatment Interventions: ADL retraining, UE strengthening/ROM, Compensatory technique education, Lower Extremity Intervention, Equipment eval/education, Activity Tolerance training, Therapeutic Activity, Neuro muscular reeducation, Energy Conservation, Functional transfer training, Excercise OT Frequency: minimum 3x/week Recommendation Recommendation: Short-term skilled OT Problem List Patient Active Problem List Diagnosis ??? Essential (primary) hypertension ??? Type 2 diabetes mellitus with diabetic chronic kidney disease (CMS Dx) ??? Liver transplanted (CMS Dx) ??? Immunosuppression (CMS Dx) ??? Abnormal stress test ??? ESRD (end stage renal disease) (CMS Dx) ??? Prophylaxis for cytomegalovirus ??? Anemia, unspecified ??? Osteomyelitis (CMS Dx) ??? Vitamin D deficiency, unspecified ??? Secondary hyperparathyroidism of renal origin (CMS Dx) ??? Epidural abscess ??? Disorder of phosphorus metabolism, unspecified ??? Discitis ??? Allergy, unspecified, initial encounter ??? Esophageal candidiasis (CMS Dx) ??? Obstructive sleep apnea Past Medical History Past Medical History: Diagnosis [...] TIPS PROCEDURE 10/2016 ??? TIPS Revision 04/2017 Home Living/Prior Function Patient able to provide accurate information at this time: Yes Lives With: Spouse;Family Assistance available: 24 hour assistance Type of Home: House Home Entry: More than 1 step to enter(4-5 steps to enter with railing) Stairs to enter: 5 steps with railing Home Layout: One level Bathroom Shower/Tub: Walk-in shower Bathroom Toilet: Standard Bathroom Equipment: Shower chair Home Equipment: (shower chair) Prior Function Functional Mobility: Independent ( no assistive device) Receives Help From: Family ADL Assistance: Independent IADL Assistance: patient does not complete Vocation: (Pt reports he is retired. ) Comments: (Pt reports he has been driving everyday. ) Pain Pain Score: 7 Pain Location: Leg Vision Overall Vision/ Perception: Within Functional Limits Cognition Overall Cognitive Status: Within Functional Limits Arousal/Alertness: Alert Orientation Level: Oriented X4 Behavior: Appropriate;Motivated Following Commands: Follows all commands and directions without difficulty Safety Judgment: Good awareness of safety precautions Insight: Demonstrated intact insight into limitation and abilities to complete ADL's safely Neuromuscular Overall Sensation: (reports numbness in B feet since his transplant. Pt also reports he is not ableto feel where his LEs are at times. ) Additional Comments: numbness in feet per pt report Right Upper Extremity Right UE ROM: Grossly [...] Grossly WFL as observed during functional activites Functional Mobility Bed Mobility Rolling: Stand by assistance Supine to Sit: Moderate assistance;use of handrail(used bedrail, support from OT while pulling up) Sit to Supine: Minimal assistance(assist with feet) Balance Sitting - Static: Contact Guard Assistance Sitting-Dynamic: Contact Guard Assistance ADL Feeding: Independent(independent for nursing) Toileting: Total assistance Toileting Deficit: Use of bedpan/urinal setup Toileting Deficit Additional Comments: pt reports using bedpan Position after Treatment ans Safety Handoff Position after therapy session: Bed Details: Call light/ needs within reach;RN notified Alarms: Bed Alarms Status: Activated and not able to be interfaced (ICU) Pt seen supine in bed, agreeable for OT/PT eval. Pt completed rolling with SBA, able to complete supine >sit with mod A. Once seated EOB, pt required CGA for both static and dynamic balance. MMT completed EOB, revealed no strength deficits in UE's. While seated EOB, pt required substantial support from his UEs, only able to tolerate sitting EOB for ~2 min before requiring return to supine d/t pain. Pt returned to supine with min A for movement of feet, able to position self in bed with SBA. Pt motivated to participate in therapy, saying he wants to get out of bed and into the chair as soonas possible. Pt also states that he may be limited in future sessions by pain and anxiety, encouraged to coordinate with nursing to ensure he gets his meds before therapy. Pt is currently functioningbelow baseline and would benefit from skilled OT services. Christiano Camacho S/OT Patient Education OT role, log roll technique Fall Prevention Educated to use call light before getting up Section GG Section GG 0130 Self-Care Admit Status Goal D/C Status CODING 06- Independent (Mod I/I) 05- Setup and clean-up assistance (S/U) 04- Supervision or touching assistance (S, SBA, CGA) 03- Partial/moderate assistance (Min A/ Mod A) 02- Substantial/maximal assistance (Max A) 01- Dependent (assist of 2 or more persons) If activity was not attempted, code reason: 07-Patient refused 09-Not applicable 88- Not attempted due to medical condition or safety concerns Eating: The ability to use suitable utensils to bring food and/or liquid to the mouth and swallow food and/or liquid once the meal is placed before the patient. 06 06 Oral Hygiene: The ability to use suitable items to clean teeth. Dentures (if applicable): The ability to insert and remove dentures into and from the mouth, and manage denture soaking and rinsing with use of equipment. 06 06 Toileting Hygiene: The ability to maintain perineal hygiene, adjust clothes before and after voiding or having a bowel. If managing an ostomy including wiping the opening but not managing equipment. 01 04 Wash upper body: The ability to wash, rinse, and dry the face, hands, chest, and arms while sittingin a chair or bed. 02 06 Toilet Transfer: The ability to get on and off a toilet or commode. 88 04 Occupational Therapy Evaluation Summary: Patient presents to the [facility] with impairments in ADLs, functional transfers, and functional mobility. Patient requires skilled occupational therapy services to increase functional independence and return to previous level of function. OT Eval Code and Complexity Moderate Complexity (40040) Occupational Profile and Medical/Therapy History Aiden Stauffer Jr. is a 45 y.o. male with a history of ESRD on HD at home (MTuThFSa), SAL cirrhosis s/p liver transplant 2018, pulmonary HTN, CJ, DM2, HTN, obesity presenting to the hospital as direct admission with complaint of subacute low back pain and weakness following spinal surgery. Patient Assessment 3-5 performance deficits (relating to physical, cognitive, or psychosocial skills) Decreased ADL status, decreased activity tolerance, decreased transfer abilities Clinical Decision Making Analysis of data from detailed assessment(s); consideration of several treatment options; comorbidities that affect occupational performance; minimal to moderate modification of tasks or assistance is necessary [id number] Time with Patient and/or Family 40 minutes DYLON INDEX OF ACTIVITIES OF DAILY LIVING Bowels 0=incontinent (or needs to be given enemata) 1=occasional accident (once/week) 2=continent Patient???s Score: 2 Transfer 0=unable-no sitting balance 1=major help (one or two people, physical), can sit 2=minor help (verbal or physical) 3=independent Patient???s Score: 0 Bladder 0=incontinent, or catheterized and unable to manage 1=occasional accident (max. once per 24 hours) 2=continent (for over 7 days) Patient???s Score: ___2 Mobility 0=immobile 1=wheelchair independent, including corners, etc. 2=walks with help of one person (verbal or physical) 3=independent (but may use any aid, e.g. stick) Patient???s Score: 0 Grooming 0=needs help with personal care 1=independent face/hair/teeth/shaving (implements provided) Patient???s Score: 0 Dressing 0=dependent 1=needs help, but can do about half unaided 2=independent (including buttons, zips, laces, etc.) Patient???s Score: 1 Toilet Use 0=dependent 1=needs some help, but can do something alone 2=independent (on and off, dressing, wiping) Patient???s Score: 0 Stairs 0=unable 1=needs help (verbal, physical, carrying aid) 2=independent up and down Patient???s Score: 0 Feeding 0=unable 1=needs help cutting, spreading butter, etc. 2=independent (food provided within reach) Patient???s Score: 2 Bathing 0=dependent 1=independent (or in shower) Patient???s Score: ____0 TOTAL SCORE: ___7 /20 Time Start Time: 1300 Stop Time: 1340 Time Calculation (min): 40 min Charges $OT Evaluation Mod Complex 15 Min: 1 Procedure $Therapeutic Activity: 23-37 mins This therapist performed treatment planning and problem solving in collaboration with OT/S in preparation for and throughout session. Darling Russell, OTR/L License No. [id number] [facility] M-F 7:30-4:00 * Jake Zavala MD - 06/09/2020 11:01 AM EDT [facility] Hospitalist Attending Progress Note Chief Complaint / Reason for Follow-Up Aiden Stauffer Jr. is a 45 y.o. male on hospital day 1. The principal reason for today's follow up visit is Osteomyelitis ([facility] Dx). Interval History / Subjective Mr. Stauffer is concerned that his dry weight goal is too low. At home (he does home dialysis) his dry weight 124 kg. He reports that in the hospital his goal is 112 kg, which he thinks is too low. He is getting leg cramps, and he thinks that this is part of the cause. The patient reports that his anxiety and pain are not well controlled. He would like to go home as soon as possible, but recognizes that he isn't able to manage at home in his current condition. Past medical, family, and social histories were reviewed as previously documented. Updates were made as necessary. Review of Systems (Focused) Review of Systems Constitutional: Negative for chills and fever. HENT: Negative for congestion and sore throat. Respiratory: Negative for cough, shortness of breath and wheezing. Cardiovascular: Negative for chest pain and palpitations. Gastrointestinal: Positive for nausea (when in pain). Negative for abdominal pain, constipation, diarrhea and vomiting. Musculoskeletal: Positive for myalgias (leg cramps). Negative for back pain and joint pain. Skin: Negative for itching and rash. Neurological: Negative for dizziness and headaches. Psychiatric/Behavioral: Negative for depression. The patient is nervous/anxious. Vital Signs Vitals: 06/08/20 2123 06/09/20 0100 06/09/20 0500 06/09/20 0824 BP: 160/75 121/68 135/72 BP Location: Right arm Right arm Patient Position: Lying Pulse: 96 98 Resp: 18 18 Temp: 98.5 ??F (36.9 ??C) 98.5 ??F (36.9 ??C) TempSrc: Oral SpO2: 96% 92% 91% 94% Weight: Height: Physical Exam Physical Exam Vitals signs and nursing note reviewed. Constitutional: General: He is not in acute distress. Appearance: He is well-developed. He is obese. HENT: Head: Normocephalic and atraumatic. Mouth/Throat: Pharynx: No oropharyngeal exudate. Eyes: General: No scleral icterus. Conjunctiva/sclera: Conjunctivae normal. Cardiovascular: Rate and Rhythm: Normal rate and regular rhythm. Heart sounds: Normal heart sounds. No murmur. Pulmonary: Effort: Pulmonary effort is normal. No respiratory distress. Breath sounds: Normal breath sounds. No wheezing. Abdominal: General: Bowel sounds are normal. There is no distension. Palpations: Abdomen is soft. Tenderness: There is no abdominal tenderness. Skin: General: Skin is warm and dry. Findings: No erythema. Neurological: Mental Status: He is alert and oriented to person, place, and time. Psychiatric: Behavior: Behavior normal. Diagnostic Studies Labs reviewed: renal, LFT, CBC (Hgb 7.5), hemoglobin A1C (6.5), glucose trend No imaging today. Assessment & Plan Hospital Problems Principal Problem: Osteomyelitis (CMS Dx) Active Problems: Essential (primary) hypertension Type 2 diabetes mellitus with diabetic chronic kidney disease (CMS Dx) Immunosuppression for liver transplant (CMS Dx) ESRD (end stage renal disease) (CMS Dx) Prophylaxis for cytomegalovirus Esophageal candidiasis (CMS Dx) Obstructive sleep apnea Anxiety Today's Plan * Osteomyelitis ([facility] Dx)- (present on admission) Infectious diseases is treated for methicillin-resistant Staph epidermidis. Cultures did not grow, but this is the organism he previously had at prior hospital. He is currently on intermittent vancomycin. PLAN: ?? Continue vancomycin with dialysis ?? Safety labs weekly Anxiety The patient takes alprazolam 2-3 times daily at home. He was getting once daily at [facility]. Will startlorazepam instead since it has a longer duration of action. PLAN: ?? Start PRN lorazepam 0.5 mg PO Q8H for anxiety Esophageal candidiasis (CMS Dx) Currently on fluconazole. PLAN: ?? Continue fluconazole 200 mg PO daily ESRD (end stage renal disease) (CMS Dx)- (present on admission) Dialsysis M/W/F. Will discuss dry weight with nephrology. PLAN: ?? Continue dialysis Immunosuppression for liver transplant (CMS Dx)- (present on admission) The patient is on cyclosporine. Will need weekly labs while on fluconazole. He is also taking entecavir chronically (donor was hepatitis B positive). PLAN: ?? Continue cyclosporine 75 mg PO BID ?? Continue entecavir 0.5 mg PO weekly ?? Check cyclosporine levels every Monday Type 2 diabetes mellitus with diabetic chronic kidney disease (CMS Dx)- (present on admission) Glucose is above goal. Will add basal insulin. PLAN: ?? Start insulin glargine 5 units subcutaneous QHS ?? Continue insulin lispro correction 0-5 units subcutaneous QAC per low-dose scale Essential (primary) hypertension- (present on admission) The patient's blood pressure is within goal. BP: 135/72 PLAN: ?? Continue hydralazine 100 mg PO Q8H ?? Continue nifedipine XR 90 mg PO BID ?? Continue metoprolol 25 mg PO BID ?? Continue terazosin 10 mg PO QHS Inpatient Management: ?? Diet: regular thin ?? IV fluids: none ?? Pain management: acetaminophen, oxycodone, gabapentin ?? Lines: Tunneled HD catheter ?? DVT prophylaxis: heparin (dialysis) ?? Precautions/Isolation: none ?? Ambulation: as tolerated ?? Restraints: none Ancillary services: PT, OT and Wound Care ?? Patient status: inpatient ?? Code status: Full Code Jake Zavala MD 06/09/2020 6:24 PM * Maru Bianchi RN - 06/09/2020 10:26 AM EDT Patient is alert, resting in bed at this time. Patient is able to communicate needs appropriately and states having sharp pain in bilateral lower extremities, rates it 7/10. 10 mg of PRN oxycodone given. Patient has fistula in left forearm. Bruit and thrill present. Patient expressed concerns regarding diet orders, pain medications, and therapy routine. After active listening, RN answered all questioned to the best of her capability and encouraged patient to also express these concerns to the appropriate members of the care team. Patient given extra blankets and turned off lights per request. Call light and television remote in reach. * Bob Ramon PharmD - 06/09/2020 9:11 AM EDT Clinical Pharmacy Service - Drug Regimen Review Aiden Stauffer Jr. is a 45 y.o. male admitted on 06/08/2020 6:56 PM from [facility]. CMS: N2001 Drug Regimen Review: Did a complete drug regimen review identify potential clinically significant medication issues? 1. Yes - Issues found during review Potential Clinically Significant Medication Issues and Discrepancies Previous Medications Current Medications Indication Recommendation x Fluconazole 200 mg daily Esophageal candidiasis Place a stop date of 06/20/20 Assessment: ?? Medication orders prior to admission and after admission reviewed per CMS Core Quality ReportingRequirements. The following resources were utilized for the Drug Regimen Review and Medication Reconciliation process discharge summary from previous facility and MAR from previous facility IS: MMF held due to infection. Med Access Service provides MMF for the patient. On CsA due to intolerance to FK. CsA goal 75-125. Patient has weekly CsA labs ordered so dose adjustments can be made after finishing fluconazole. Esophageal candidiasis: Per discharge summary, fluconazole therapy was anticipated to last 2 weeks (06/07 - 06/20) Osteomyelitis: Suspected MRSE, preHD goal 15-20. Per discharge summary, anticipated duration of therapy is 8 weeks (05/28 - 07/22) HTN: Managed with nifedipine, will trend BP, avoiding aggressive management to prevent complications during dialyis Abbreviations used in the note: MMF = Cellcept, CsA = cyclosporine, FK = tacrolimus Allergies Allergen Reactions ??? Codeine Sulfate Hyper ??? Codeine Other (See Comments) Becomes hyper Past Medical History: Diagnosis Date ??? Acute [...] ??? Sleep apnea ??? Vitamin D deficiency Diet Orders Diet regular renal, liquid thin, consistent carb 45-60g/meal starting at 06/08 1956 BP 135/72 (BP Location: Right arm, Patient Position: Lying) Pulse 98 Temp 98.5 ??F (36.9 ??C) (Oral) Resp 18 Ht 5' 7 (1.702 m) Wt (!) 245 lb 7 oz (111.3 kg) Comment: had dialysis prior to arrrival SpO2 94% BMI 38.44 kg/m?? Estimated Creatinine Clearance: 18.2 mL/min (A) (based on SCr of 6.03 mg/dL (H)). Thanks, MERARY BERG 06/09/2020 9:11 AM I have reviewed the patient's chart and reviewed the pharmacy sales representative's note. I have made the appropriate modifications to the note above. BOB RAMON PharmD 06/10/2020 10:38 AM Cosigned by Jake Zavala MD at 06/10/2020 12:15 PM EDT Associated attestation - Jake Zavala MD - 06/10/2020 12:15 PM EDT Reviewed. Agree with end date. Jake Zavala MD 06/10/2020 12:15 PM * MERARY Berg - 06/09/2020 8:20 AM EDT Images from the original note were not included. Clinical Pharmacy Service - Vancomycin Progress Note Aiden Stauffer is a 45 y.o. male on vancomycin. Pharmacy consulted by the primary team to manage vancomycin dosing. Current Anti-Infectives Dose Frequency Start End entecavir (BARACLUDE) tablet 0.5 mg 0.5 mg Every 7 days 06/09/2020 Admin Instructions: ADMINISTER ON EMPTY STOMACH (2 HOURS BEFORE OR AFTER MEALS).
LEVEL 2 HAZARDOUS MEDICATION Route: Oral fluconazole (DIFLUCAN) tablet 200 mg 200 mg Daily 06/09/2020 Route: Oral vancomycin intermittent/pulse dosing PLACEHOLDER ORDER Use as directed PRN 06/08/2020 Admin Instructions: Patient is receiving intermittent/pulse vancomycin dosing based on random serumlevels. NOTE:This is NOT an active medication order. If a dose of vancomycin is needed, it must be entered as a one-time dose by physicians or pharmacists. Route: Intravenous Wt Readings from Last 3 Encounters: 06/08/20 (!) 245 lb 7 oz (111.3 kg) 06/07/20 (!) 251 lb 15.8 oz (114.3 kg) 03/16/20 (!) 278 lb (126.1 kg) WBC, BUN, Creatinine (Last 7 days) WBC BUN Creatinine 4.4 10E3/uL 06/09/20 0605 49 mg/dL 06/08/20 0720 11.23 mg/dL 06/08/20 0720 5.3 10E3/uL 06/08/20 0720 44 mg/dL 06/07/20 0727 10.02 mg/dL 06/07/20 0727 5.3 10E3/uL 06/07/20 0727 36 mg/dL 06/06/20 0620 8.28 mg/dL 06/06/20 0620 Lab Results (Last 7 days) Vanc Rdm 18.0 ug/mL 06/09/20 0605 15.5 ug/mL 06/07/20 0727 17.5 ug/mL 06/05/20 1200 Microbiology Results Date and Time Order Name Sensitivity Status Organisms Specimen ID Source 06/03/2020 0831 Anaerobic culture Final [id number] Back 06/03/2020 0831 Routine Culture plus Stain Final [id number] Back 05/28/2020 1541 #1 Blood culture-Peripheral Final [id number] Peripheral 05/28/2020 1404 #2 Blood culture-Peripheral Final [id number] Peripheral Current SCr: 11.23 mg/dL Pertinent allergies: Codeine Indication: osteomyelitis, Disicitis Goal Trough: 15-20 mg/L Tentative stop date: 07/22/20 Assessment and Plan ?? Patient is being treated with vancomycin for osteomyelitis, discitis ?? Currently receiving vancomycin pulse dosing during the last hour of dialysis ?? Current AM vancomycin level this morning is: 18 mg/L ?? Patient last received 1000mg on 06/07/20 and had HD on 06/08 ?? Check next vancomycin level Wed (06/10/20) before dialysis @ 0600 Continue 1000mg during the last hour of dialysis on Mon06/10/20 ?? Pharmacy will continue to monitor therapy for efficacy and toxicity Thank you for the consult MERARY BERG 06/09/2020 8:20 AM Phone: [phone] For clinical pharmacy assistance after 4pm or on weekends, please call [phone] Cosigned by Kelsie Scanlon PharmD at 06/09/2020 8:59 AM EDT Associated attestation - Kelsie Scanlon PharmD - 06/09/2020 8:59 AM EDT I have reviewed the pharmacy sales representative's note and I agree with the student recommendations 06/07: Patient received 1000 mg IV vanco at 06/08: HD at [facility] HD at home is 5 x weekly Inpatient HD: MWF ID at planned to treat x 8 weeks total ~TSD 07/22/20 ID to follow at [facility] Any further recommendations or information has been included below. KELSIE SCANLON PharmD 06/09/2020 8:53 AM * Irasema Mcguire, GEOVANNA - 06/09/2020 7:54 AM EDT [facility] Nutrition Assessment Met pt, upset about menu choices with Renal/Consistent CHO diet. Expressed that he self monitors diet at home and 'mu numbers are perfect, ask my kidney dietitian Was able to recite high Phos and K+items to limit and watches sodium content at home. Said does all the cooking. Focuses on HBV proteins at home and limites bread products. Said FSBS were well controlled at home. Shared wants todo the right thing because I need a kidney transplant too with gradual weight loss. Liver transplant in 2018, has been on Cyclosporine since, provided DNI for it's use and understood about the grapefruit interaction. Denies any chewing/swallowing or food allergies. No further questions. Able to utilize call center/feed self independently. RD contact information given to pt. Diagnosis: osteomyelitis 05/28/2020 [facility] 45 YOM with PMH ESRD on HD at home 5 x week, SLA cirrhosis s/p liver transplant in 2018, pulmonary HTN, GERD, JC, DM2, HTN, obesity presented to hospital with back pain and weakness following spinal surgery. Found to have sepsis, discitis, epidural absess/osteomyelitis, upper GIB, anemia, esophageal candidiasis and pain. Allergies Allergen Reactions ??? Codeine Sulfate Hyper ??? Codeine Other (See Comments) Becomes hyper Diet:renal, 45-60 gm CHO diet Supplement/Tube Feeding/IV: none Intake: 25-100% per hospital documentation Chewing/Swallowing Problems:denies Dining Location: room [facility]Her[facility] Food Preferences: none reported Mental Status: A/O Feeding Ability:independent Bowels: no issues per pt Weight: (!) 245 lb 7 oz (111.3 kg)(had dialysis prior to arrrival) (06/08/201899) Height: 5' 7 (170.2 cm) (06/08/201899) Body mass index is 38.44 kg/m??. Usual Weight: 285# %UBW:86% Goal Weight: 245# +/- 10-15#, fluctuations expected r/t ESRD w/ HD Coy Weight: 148# +/- 10% %IBW: 166% Wt Readings from Last 10 Encounters: 06/08/201899 (!) 245 lb 7 oz (111.3 kg) 06/07/20 0437 (!) 251 lb 15.8 oz (114.3 kg) 06/03/20 0604 (!) 254 lb 3.2 oz (115.3 kg) 05/28/20 1500 (!) 278 lb (126.1 kg) 03/16/20 0939 (!) 278 lb (126.1 kg) 03/12/20 1103 (!) 278 lb (126.1 kg) 03/11/20 1108 (!) 277 lb 12.8 oz (126 kg) 03/11/20 1106 (!) 277 lb 12.8 oz (126 kg) 02/13/20 0913 (!) 277 lb 12.8 oz (126 kg) 10/04/19 0700 (!) 278 lb (126.1 kg) 09/19/19 1238 (!) 278 lb 12.8 oz (126.5 kg) 07/30/19 0600 (!) 284 lb 8 oz (129 kg) 07/29/19 2326 (!) 286 lb 7 oz (129.9 kg) Significant Loss/Gain: based on system weight hx, an 11.8% loss within 90 days. Weekly wts in pl[place] better determine baseline. Fluctuations expected r/t ESRD with HD tx's. Labs: Lab Results Component Value Date CREATININE 11.23 (H) 06/08/2020 BUN 49 (H) 06/08/2020 NA 138 06/08/2020 K 4.5 06/08/2020 CL 99 06/08/2020 CO2 26 06/08/2020 Lab Results Component Value Date OSMOLALITY 301 06/08/2020 Lab Results Component Value Date CALCIUM 8.9 06/08/2020 PHOS 5.8 (H) 06/08/2020 GLUCOSE 135 (H) 06/08/2020 Lab Results Component Value Date HGBA1C 6.9 (H) 01/27/2020 Lab Results Component Value Date WBC 5.3 06/08/2020 HGB 7.2 (L) 06/08/2020 HCT 22.2 (L) 06/08/2020 MCV 91.2 06/08/2020 PLT 246 06/08/2020 Component Value Date/Time POCGMD 224 (H) 06/08/2020 1705 POCGMD 174 (H) 06/08/2020 1533 POCGMD 169 (H) 06/08/2020 1012 POCGMD 171 (H) 06/07/2020 1755 POCGMD 123 (H) 06/07/2020 1250 POCGLU 196 04/26/2018 1854 POCGLU 225 (H) 10/08/2017 1232 POCGLU 218 (H) 10/08/2017 1138 POCGLU 167 (H) 10/08/2017 1109 POCGLU 178 (H) 10/08/2017 1004 POCGLU 176 (H) 10/08/2017 0903 Lab Results Component Value Date NVLP68B 15.8 (L) 01/14/2019 Scheduled Meds: ??? carBAMazepine 200 mg Oral Nightly (2099) ??? cycloSPORINE modified 75 mg Oral BID ??? entecavir 0.5 mg Oral Q7 Days ??? [START ON 06/10/2020] epoetin giancarlo-epbx 6,000 Units Subcutaneous Once per day on Mon ??? fluconazole 200 mg Oral Daily 0900 ??? gabapentin 200 mg Oral Nightly (2099) ??? heparin 5,000 Units Subcutaneous Q8H ??? hydrALAZINE 100 mg Oral 3 times per day ??? insulin lispro 0-5 Units Subcutaneous TID AC ??? melatonin 6 mg Oral Nightly (2099) ??? methocarbamoL 500 mg Oral QID ??? metoprolol tartrate 25 mg Oral BID ??? NIFEdipine 90 mg Oral 2 times per day ??? pantoprazole 40 mg Oral DAILY 0600 ??? QUEtiapine 12.5 mg Oral Nightly (2099) ??? terazosin 10 mg Oral Nightly (2099) Continuous Infusions: PRN Meds:.acetaminophen, ALPRAZolam, bisacodyL, dextrose 50 % in water (D50W) OR dextrose 50 % in water (D50W), glucose, ondansetron, oxyCODONE OR oxyCODONE, polyethylene glycol, proMETHazine, senna-docusate, vancomycin intermittent/pulse dosing PLACEHOLDER ORDER Skin Condition: WCT to assess Edema: 1 + BLE Estimated Nutrition Needs: Kcals/day: 7498-5359 Protein g/day: 111-133 Fluid ml/day:7228-6352 or per nephrology Method for needs estimation 20-22 Kcal/kg based on CBW 245# or 111 kg Nutrition Diagnosis and Problems: Nutrition Diagnosis: Increased nutrient needs Related To: ESRD As Evidenced By: increased demands of nutrients needed Nutrition Prescription: Food and Nutrition Therapy: Will liberalize diet to regular, pt to self monitor K+, Na+ and Phos items Nutrition Education: Diet, menu system, RD role/contact information Coordination of Nutrition Care: IDT, /JAWBONE BREAKER, nephrology, pt Monitoring: Intake, weight, FSBS and labs Plan of Care:Implemented Follow Up: 6-[address], LD Phone [phone] [facility] [phone] * Maru Benedict RN - 06/09/2020 2:54 AM EDT 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 Explained pt that he is getting 2 mg Dilaudid every 4 hours. Pt is requesting to see the Mike MD. Dr. Soriano was notified. * Maru Benedict RN - 06/08/2020 9:33 PM EDT Patient admitted from 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 Patient alert and oriented, and is cooperative with care. Pt c/o pain of 10/10 in bilateral lower extremieties. Dr. Soriano was notified of the new admission. Prn pain meds were given and positive results noted. Patient received a super tray, oriented to room and facility with no questions or concerns verbalizes. Left Arm Fistula positive for bruit and thrill. Dressing intact. No signs of acute distress, VSS. Call light in reach, bed to lowest position. Will continue POC. * Ivory Contreras, Wilbert - 06/08/2020 8:46 PM EDT Images from the original note were not included. Clinical Pharmacy Service - Vancomycin Progress Note Aiden Stauffer Jr. is a 45 y.o. male on vancomycin. Pharmacy consulted by the primary team to manage vancomycin dosing. Current Anti-Infectives Dose Frequency Start End entecavir (BARACLUDE) tablet 0.5 mg 0.5 mg Every 7 days 06/09/2020 Admin Instructions: ADMINISTER ON EMPTY STOMACH (2 HOURS BEFORE OR AFTER MEALS).
LEVEL 2 HAZARDOUS MEDICATION Route: Oral fluconazole (DIFLUCAN) tablet 200 mg 200 mg Daily 06/09/2020 Route: Oral vancomycin (VANCOCIN) 1,000 mg in sodium chloride 0.9% 250 mL ADDaptor IVPB 1,000 mg Every Monday, Monday, Monday06/10/2020 Admin Instructions: Please give dose after dialysis
Use ADDaptor product - Mix Thoroughly Before Administration Route: Intravenous Wt Readings from Last 3 Encounters: 06/07/20 (!) 251 lb 15.8 oz (114.3 kg) 03/16/20 (!) 278 lb (126.1 kg) 03/12/20 (!) 278 lb (126.1 kg) WBC, BUN, Creatinine (Last 7 days) WBC BUN Creatinine 5.3 10E3/uL 06/08/20 0720 49 mg/dL 06/08/20 0720 11.23 mg/dL 06/08/20 0720 5.3 10E3/uL 06/07/20 0727 44 mg/dL 06/07/20 0727 10.02 mg/dL 06/07/20 0727 5.3 10E3/uL 06/05/20 1200 36 mg/dL 06/06/20 0620 8.28 mg/dL 06/06/20 0620 Lab Results (Last 7 days) Vanc Rdm 15.5 ug/mL 06/07/20 0727 17.5 ug/mL 06/05/20 1200 25.2 ug/mL 06/04/20 0657 Microbiology Results Date and Time Order Name Sensitivity Status Organisms Specimen ID Source 06/03/2020 0831 Anaerobic culture Final [id number] Back 06/03/2020 0831 Routine Culture plus Stain Final [id number] Back 05/28/2020 1541 #1 Blood culture-Peripheral Final [id number] Peripheral 05/28/2020 1404 #2 Blood culture-Peripheral Final [id number] Peripheral Current SCr: 11.2 mg/dL Baseline SCr:ESRD. On 5xweekly HD at home. MWF HD while inpt Pertinent allergies: codeine Indication: discitis/OM Goal Trough: 15-20 mg/L Tentative stop date: [address] [facility] ID. Assessment and Plan ?? Patient is being treated with vancomycin for discitis/OM ?? Currently receiving vancomycin pulse dosing during the last hour of dialysis at [facility] ?? Pt received vancomycin 1000mg on 06/07, and had HD on 06/08. 5 x weekly HD at home, and now MWF HD while inpt. ?? Check next vancomycin level in AM. Next HD planned for Sunday 06/10 ?? Pharmacy will continue to monitor therapy for efficacy and toxicity Thank you for the consult IVORY CONTRERAS PharmD 06/08/2020 8:46 PM Phone: [phone] For clinical pharmacy assistance after 4pm or on weekends, please call [phone] * Kimber Alcantar MD - 06/08/2020 7:24 PM EDT Transplant Nephrology Consult Follow Up Note Assessment/Plan: - ESRD on home HD 5 days/week. - MWF schedule while inpatient - had infiltration of AVF, follow-up US acceptable, tolerating HD via AVF. - hemodynamically stable, labs & volume status acceptable - Anemia - on Epo SAL Cirrhosis s/p OLT in 2018 - MMF being held due to Osteomyelitis - on Cyclosporine Recommendations: - HD today prior to discharge. KIMBER ALCANTAR MD PGY4 Nephrology Fellow 06/08/2020 Discussed with Consult Staff Reason for Renal Consult : ESRD HPI Patient ESRD on HD at home (MTuThFSa), SAL cirrhosis s/p liver transplant 2018,??pulmonary HTN, JC, DM2, HTN, obesity admitted with complaint of subacute low back pain and weakness following spinalsurgery. ?? Patient underwent spinal surgery (lumbar laminectomy, discectomy and posterior decompression at L4-L5) at [facility] 04/29. Patient is having worsening back paina [facility] spine concerning for L5-S1 discitis and osteomyelitis with abnormal soft tissue and fluid density of posterior paraspinous tissues L3- S1 with apparent extension into the central canal at L5, suspicious for soft tissue infection. Interval History: - comfortable in bed, no complaints. - unchanged from yesterday - d/c to [facility] today PHYSICAL EXAM Temp: [97.1 ??F (36.2 ??C)-98.1 ??F (36.7 ??C)] 98.1 ??F (36.7 ??C) Heart Rate: [75-115] 114 Resp: [16-20] 18 BP: (124-211)/(71-140) 162/89 Wt Readings from Last 3 Encounters: 06/07/20 (!) 251 lb 15.8 oz (114.3 kg) 03/16/20 (!) 278 lb (126.1 kg) 03/12/20 (!) 278 lb (126.1 kg) No intake or output data in the 24 hours ending 06/08/201923 General appearance: NAD Head: Normocephalic, atraumatic Mouth: moist mucus membranes Neck: Supple Lungs: diminished in the bases Heart: regular rate and rhythm Abdomen: soft, non-tender non-distended Extremities: trace LE edema Skin: No rashes MEDS Scheduled Meds: Continuous Infusions: PRN Meds:. DATA : Recent Labs 06/07/2072606/08/20719 WBC 5.3 5.3 HGB 7.5* 7.2* HCT 23.1* 22.2* PLT 259 246 Recent Labs 06/06/20 0606/07/2072606/08/20719 NA 140 139 138 K 4.2 4.4 4.5 CL 101 99 99 CO2 27 26 26 BUN 36* 44* 49* CREATININE 8.28* 10.02* 11.23* GLUCOSE 119* 121* 135* Lab Results Component Value Date CREATININE 11.23 (H) 06/08/2020 BUN 49 (H) 06/08/2020 NA 138 06/08/2020 K 4.5 06/08/2020 CL 99 06/08/2020 CO2 26 06/08/2020 Lab Results Component Value Date PTH 164.0 (H) 01/14/2019 CALCIUM 8.9 06/08/2020 PHOS 5.8 (H) 06/08/2020 Lab Results Component Value Date [id number] 15.8 (L) 01/14/2019 Lab Results Component Value Date WBC 5.3 06/08/2020 HGB 7.2 (L) 06/08/2020 HCT 22.2 (L) 06/08/2020 MCV 91.2 06/08/2020 PLT 246 06/08/2020 Lab Results Component Value Date IRON 19 (L) 06/02/2020 TIBC 172 (L) 06/02/2020 FERRITIN 1,132.0 (H) 06/02/2020 Lab Results Component Value Date KETONESU Negative 07/20/2019 BLOODU Small (A) 07/20/2019 BILIRUBINUR Negative 07/20/2019 UROBILINOGEN <2.0 07/20/2019 PROTEINUA >=500 (A) 07/20/2019 NITRITE Negative 07/20/2019 LEUKOCYTESUR Negative 07/20/2019 PHUR 6.0 07/20/2019 LABSPEC 1.017 07/20/2019 CLARITYU Cloudy (A) 07/20/2019 COLORU Yellow 07/20/2019 This note was copied forward from previously composed documentation. I have reviewed and updated the history, review of systems, physical exam, data, assessment and plan of the note so that it reflects the evaluation and management of the patient on 06/08/2020. Cosigned by Destin Rawls MD at 06/08/2020 10:25 PM EDT Associated attestation - Destin Rawls MD - 06/08/2020 10:25 PM EDT I have seen and examined the patient, reviewed the notes, assessments, and/or procedures performed by the fellow/resident/CASH CHECKER and I concur with her/his documentation of the patient. My physical exam confirms the findings listed above. Review of labs, pathology reports, radiograph reports, and medical records confirm the findings noted above. I have edited the note where appropriate. I have discussed my findings and recommendations with the patient/family when appropriate and answered their questions. HD MWF while inpatient Can resume home hemo once back home- Dr Enrique Millan in [place], [place] IS per liver team Destin Rawls MD Transplant Nephrology Attending * Jake Zavala MD - 06/08/2020 11:31 AM EDT [facility] Post Acute Care Physician Review for LTAC Admission Sending Facility: [facility] Hospital Service: Internal Medicine Discussed with Provider: Jay Morgan MD Time of Call: 11:51 AM Reason for Admission: Epidural abscess Brief Clinical Course Mr. Stauffer has a past medical history of Acute pancreatitis, Anemia, Ascites, Diabetes mellitus (CMS Dx), Dialysis patient (CMS Dx), Esophageal varices with bleeding (CMS Dx), GERD (gastroesophageal reflux disease), Hearing loss, Hepatic encephalopathy (CMS Dx), Hypertension, Liver cirrhosis secondary to SAL (CMS Dx), Pulmonary HTN (CMS Dx), Sleep apnea, and Vitamin D deficiency. Epidural abscess in April; was admitted to outside hospital, then transferred to [facility]. Neurosurgery evaluated; no need for surgical intervention. Interventional IR was able to aspirate fluid, butthere was no growth. Infectious diseases recommended 8 weeks of vancomycin with dialysis for presumed osteomyelitis/discitis. Esophageal candidiasis. Had an upper GI bleed and underwent EGD. Candidiasis noted incidentally. Transplant ID recommends 2 weeks of fluconazole. No further bleeding. ESRD. Normally does home dialysis. Tolerating well. He had not been a transplant candidate due to high BMI, but has since lost some weight. Liver transplant. Cyclosporine. Now on fluconazole will need to monitor levels. 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 Diabetes. On high insulin doses at home, but only requiring 1-2 units daily now. Code Status: Full Accepted for Admission: Yes Jake Zavala MD 06/08/2020 6:28 PM documented in this encounter H&P Notes * Ryan Soriano MD - 06/08/2020 8:24 PM EDT HISTORY & PHYSICAL Patient: Aiden Stauffer Jr. CSN: [id number] Chief Complaint Pt transferred from [facility] epidural abscess, ESRD oh HD History of Present Illness Portion of H/P copied from D/C summary, VIMAL Aiden Stauffer Jr.??is a 45 y.o.??male??with a history of ESRD on HD at home (MTuThFSa), SAL cirrhosis s/p liver transplant 2018,??pulmonary HTN, JC, DM2, HTN, obesity??presenting to the hospital as direct admission with complaint of subacute low back pain and weakness following spinal surgery. Previous Hospitalization Note [facility] 04/28/20-05/13/20 Aiden Stauffer??is a 45 y.o.??male??with history of liver transplant 2018 secondary to SAL, ESRD on home dialysis 5 days per [...] vanco w/ HD. I have d/w Dr. Millan, his fitter hand, who accepts plan. Patient will present to HD center [facility] for vanco following his HD treatments. [...] safely discharged home from a medical standpoint. Review of Systems History obtained from chart review and the patient Pt c/o testicular pain with IV ABX relieved with antifungal med. ( has had in past) Past Medical History Past Medical History: Diagnosis [...] file Gets together: Not on file Attends hoahaoism service: Not on file Active member of [...] History Narrative ??? Not on file Medications Allergies Allergen Reactions ??? Codeine Sulfate Hyper ??? Codeine Other (See Comments) Becomes hyper Scheduled Meds: ??? acetaminophen 975 mg Oral Q6H TALIB ??? carBAMazepine 200 mg Oral Nightly (2099) ??? cycloSPORINE modified 75 mg Oral BID ??? [START ON 06/09/2020] entecavir 0.5 mg Oral Q7 Days ??? epoetin giancarlo-epbx 6,000 Units Subcutaneous Once per day on Mon ??? [START ON 06/09/2020] fluconazole 200 mg Oral Daily 0900 ??? gabapentin 200 mg Oral Nightly (2099) ??? heparin 5,000 Units Subcutaneous Q8H ??? hydrALAZINE 100 mg Oral 3 times per day ??? [START ON 06/09/2020] insulin lispro 0-5 Units Subcutaneous TID AC ??? melatonin 6 mg Oral Nightly (2099) ??? methocarbamoL 500 mg Oral QID ??? metoprolol tartrate 25 mg Oral BID ??? NIFEdipine 90 mg Oral 2 times per day ??? [START ON 06/09/2020] pantoprazole 40 mg Oral DAILY 0600 ??? QUEtiapine 12.5 mg Oral Nightly (2099) ??? terazosin 10 mg Oral Nightly (2099) ??? [START ON 06/10/2020] vancomycin 1,000 mg Intravenous QMWF1 Continuous Infusions: PRN Meds:ALPRAZolam, 0.5 mg, Daily PRN bisacodyL, 10 mg, Daily PRN dextrose 50 % in water (D50W), 25 mL, Q15 Min PRN Or dextrose 50 % in water (D50W), 50 mL, Q15 Min PRN glucose, 12 g, Q15 Min PRN ondansetron, 4 mg, Q6H PRN polyethylene glycol, 17 g, Daily PRN proMETHazine, 12.5 mg, Q6H PRN senna-docusate, 2 tablet, BID PRN Vital Signs Vitals: 06/08/20 1900 BP: 162/89 Pulse: 114 Resp: 18 Temp: 98.1 ??F (36.7 ??C) SpO2: 94% Physical Exam BP 162/89 (BP Location: Right arm, Patient Position: Lying) Pulse 114 Temp 98.1 ??F (36.7 ??C) (Oral) Resp 18 SpO2 94% General appearance: alert, appears stated age, cooperative, no distress and well nourished Head: Normocephalic, without obvious abnormality, atraumatic Eyes: conjunctivae/corneas clear. PERRL, EOM's intact. Fundi benign. Neck: no adenopathy, no carotid bruit, no JVD, supple, symmetrical, trachea midline and thyroid notenlarged, symmetric, no tenderness/mass/nodules Back: symmetric, no curvature. ROM normal. No CVA tenderness. Lungs: clear to auscultation bilaterally and no respiratory distress Heart: regular rate and rhythm, S1, S2 normal, no murmur, click, rub or gallop and 2-3/6 LEE LSB>RSB Abdomen: soft, non-tender; bowel sounds normal; no masses, no organomegaly and old well healed surgical incision midline radiation RUQ Male genitalia: normal, testies non tender no edema erythema no gross masses palpated Extremities: extremities normal, atraumatic, no cyanosis or edema and AV fistula LUE with thrill multiple UE bruising old IV sites non tender no induration Pulses: 2+ and symmetric Skin: Skin color, texture, turgor normal. No rashes or lesions Laboratory Data Last BMP: Lab Results Component Value Date GLUCOSE 135 (H) 06/08/2020 BUN 49 (H) 06/08/2020 CO2 26 06/08/2020 CREATININE 11.23 (H) 06/08/2020 K 4.5 06/08/2020 NA 138 06/08/2020 CL 99 06/08/2020 CALCIUM 8.9 06/08/2020 Last CBC: Lab Results Component Value Date WBC 5.3 06/08/2020 HGB 7.2 (L) 06/08/2020 HCT 22.2 (L) 06/08/2020 MCV 91.2 06/08/2020 PLT 246 06/08/2020 Last POC Glucose: Component Value Date/Time POCGMD 224 (H) 06/08/2020 1705 POCGMD 174 (H) 06/08/2020 1533 POCGMD 169 (H) 06/08/2020 1012 POCGMD 171 (H) 06/07/2020 1755 POCGMD 123 (H) 06/07/2020 1250 POCGLU 196 04/26/2018 1854 POCGLU 225 (H) 10/08/2017 1232 POCGLU 218 (H) 10/08/2017 1138 POCGLU 167 (H) 10/08/2017 1109 POCGLU 178 (H) 10/08/2017 1004 POCGLU 176 (H) 10/08/2017 0903 Last INR: Lab Results Component Value Date INR 1.2 (H) 06/08/2020 INR 1.3 (H) 06/05/2020 INR 1.3 (H) 06/04/2020 PROTIME 14.9 06/08/2020 PROTIME 16.8 (H) 06/05/2020 PROTIME 16.5 (H) 06/04/2020 Specialty labs: Diagnostic Studies 2D Echo 05/28/20 Study Conclusions ?? - Left ventricle: The cavity size is normal. Wall thickness was increased in a pattern of mild LVH. Systolic function was normal. The estimated ejection fraction was in the range of 55% to 60%. Wall motion was normal; there were no regional wall motion abnormalities. The study is not technically sufficient to allow evaluation of LV diastolic function due to tachycardia. - Ventricular septum: Abnormal septal motion. Septal motion is dyssynergic. - Aortic valve: Poorly visualized. Mild thickening. Mild calcification. - Left atrium: The atrium is mildly dilated. - Right ventricle: The cavity appears dilated in some views. Systolic function was normal. TAPSE: 2.1cm. - Right atrium: The atrium is dilated. - Tricuspid valve: Poorly visualized. - Pulmonic valve: Poorly visualized. - Pulmonary arteries: Systolic pressure could not be accurately estimated. - Inferior vena cava: Poorly visualized. Assessment & Plan Diet: Diet Orders Diet regular renal, liquid thin, consistent carb 45-60g/meal starting at 06/08 1956 Appointments: Future Appointments Date Time Provider Department Center 07/01/2020 2:30 PM Ravi Biswas MD [facility] Assessment/Plan: Osteomyelitis #Epidural Abscess Patient with recent spinal surgery 04/2020 for Epidural abscess , presesnted with back pain, difficulty walking and imaging findings concerning for osteomyelitis and soft tissue infection.??Patient was neurologically in tact. Patient received one dose of vanc and zosyn at OSH. He was started on vancomycin, cefepime to cover empirically 05/28. MRI WO Spine: osteomyelitis discitis again noted at L4-L5 with a moderate-sized epidural abscess, compressing the distal thecal sac. Neurosurgery consulted with no surgical intervention needed and recommend complete course of IV Abxunless patient develops acute neurologic red flag Transplant ID was consulted and recommend to continue IV vancomycin and cefepime and obtaining CT guided fluid aspiration through IR which was done 06/03 with 2 mL of purulent fluid were aspirated and sent for culture,to guide antibiotics regimen, which showed gram stain with GPCs in pairs??but no growth. Transplant ID decided that the osteomyelitis is likely secondary to previously identified MRSE without new organism and recommended stopping the cefepime (last dose 06/04) and finishing 8 weeks IV vancomycin 1000 mg with Diaylsis (05/28/2020- 07/22/2020), wiht weekly monitoring of CBC, diff, renal, ESR, CRP. Follow-up blood cultures at OSH with NG after 5 days, and blood cultures at [facility] also with NG after5 days. Patient was receiving vancomycin with the help of pharmacy based on drug level - For pain management patient was on Dilaudid 0.5 Q6h PRN for pain, but leg pain did not improve, so Pain management was consulted 06/03, and recommended scheduled Tylenol 975 mg q6h, and robaxin 500mg QID, Seroquel 12.5 mg were added and improved patient pain ??- ID consult to follow ?? #Upper GI Bleed #Anemia of Chronic disease Patient had an episode of black emesis on 05/28. Hb 7.3 down from 7.9 on admission. He was started on IV PPI and transitioned to PO after EGD which showed large amount of coffee ground fluid in stomach and??circumferential adenomatous mass-like lesion in the distal esophagus at the GE junction. Butno active bleeding. Biopsy was taken. Patient had a dialysis session the following day and his Hb after iHD was found to be 6.2 so 2 unit of pRBC was transfused with improvement to 7.8. patient didn't had any further bleeding episodes and his Hb remained stable. Patient was receiving EPO 6000U withdialysis sessions. (Biopsy result: Squamocolumnar junctional mucosa with severe acute and chronic active inflammation,associated with prominent foveolar hyperplasia.No evidence of intestinal metaplasia, dysplasia, or malignancy) - PO Protonix daily ?? #Esophageal candidiasis Biopsy of??mass-like lesion in the distal esophagus??with??GMS stain demonstrated??fungal yeasts, morphologically suggesting Luz. Transplant ID recommended starting Fluconazole 200 mg for two weeks (06/07/2020- 06/20/2020)? #ESRD on iHD Patient dialyzes on , , , , Sa at home??with AVF in LUE. . Not eligible for transplant due toBMI >40. Nephrology consult for dialysis continuatio. On 06/01 Patient went for unsuccessful dialysis with reported clots coming from AVF, IR declotted the AVF 06/02 w/plan to dialyze afterwards but could not tolerate full run of iHD d/t fistula pressure issues. US of the fistula 06/03 showed patent fistula. Afterwards patient put on --F schedule. Patient would only tolerate 3-3.5 h / 4h dialysis session due to leg pain. Per renal patient to continue on MWF dialysis schedule in the [place]. Patient was receiving EPO 6000U with dialysis sessions - Nephrology consult ? #SAL Cirrhosis s/p liver transplant 2017 No acute decompensation. Patient follows with Dr. Ordoñez, last seen 12/2019. Previously on tacrolimus for IS but experienced AMS so switched to cyclosporine 50 mg BID and cellcept 250 mg BID Liver consulted and recomended stopping Cellcept in the setting of active infection, and continuinghome Cyclosporine 50 mg BID, which was uptitered to 50 mg in the AM and 75 mg in the PM on 06/05 due to drug undetectable levels, and then to 75 mg BID??on 06/07 also due to drug undetectable levels. - lifelong entecavir 0.5 mg weekly (Taken on Tuesdays) was continued due to high risk donor (HBV ALEXANDRA +, HCV Ab+, ALEXANDRA negative) Continued to hold Cellcept at discharge. As patient was started a Fluconazole, he would needs cyclosporine level checks at [place] as he Fluconazole increase cyclosporine level. MELD-Na score: 22 at 06/08/2020 7:20 AM MELD score: 22 at 06/08/2020 7:20 AM Calculated from: Serum Creatinine: 11.23 mg/dL (Rounded to 4 mg/dL) at 06/08/2020 7:20 AM Serum Sodium: 138 mmol/L (Rounded to 137 mmol/L) at 06/08/2020 7:20 AM Total Bilirubin: 0.4 mg/dL (Rounded to 1 mg/dL) at 06/08/2020 7:20 AM INR(ratio): 1.2 at 06/08/2020 7:20 AM Age: 45 years ?? #Type 2 Diabetes Mellitus Home regimen humalin 48u qAM, 24u nightly. Last HgA1c 6.9% 01/27/2020. He was put on low dose sliding scale insulin. Blood glucose ranges 113-170. patient rarely needed any insulin correction throughout his stay Gabapentin 200 mg and tegretol 200 mg conitnued for neuropathy - FSBS AC/HS Low dose SSI coverage ?? #GERD - Continued home famotidine at first then switched to PO pantoprazole after the episode of coffee ground emesis. ?? #HTN On hydralazine TID, clonidine as needed on dialysis day, nifedipine BID, doxazosin at night. Continued as inpatient (hytrin was the therapeutic interchange for doxazosin). Patient mentioned that he suppose to be on metoprolol tartarte so it was added to his medication 25 mg BID ?? #Pulmonary Hypertension On echo 07/2019 - PAP estimated to be 50 mmg Hg, likely due to JC/OHS. Has an appointment with Dr. Alanna ag 07/01/2020. No acute issues during this hospitalizing ?? #JC Patient refused to wear BiPAP at night, so he needed O2 through NC some nights. Pain - pt on IV Dilaudid at [facility] unfortunately very hard IV stick and PICC pulled prior to transfer - Tylenol taniya 6 hours - Gabapentin - PICC nurse in [place] to see for PICC IV Vancomycin VTE - SQH every 8 hours ?? Code Status: Full Code Signed: Ryan Soriano MD 06/08/2020 8:14 PM documented in this encounter Consult Notes * Enrike Mccracken MD - 06/24/2020 2:08 PM EST Renal follow up Evaluation Note Chief Complaint on Admission : sepisi epidural abscess HPI Aiden Stauffer Jr. is an 45 y.o. male admitted to [facility] from [facility] with epidural abscess in setting ofimmunosuppression. Pt has laminectomy L5 and I&D of epidural abscess 04/29. 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 Noted Dr Zavalas concerns about discharge planning. PT mentions that he has a lot of leg swelling. History: Past Medical History: Diagnosis Date ??? [...] Substance Use Topics ??? Alcohol use: No ??? Drug use: No HPI ROS. Updated on 06/24/2020 Review of Systems Constitutional: Positive for malaise/fatigue. Negative for chills, diaphoresis, fever and weight loss. HENT: Negative. Eyes: Negative. Respiratory: Negative. Cardiovascular: Positive for leg swelling. Negative for chest pain, palpitations, orthopnea, claudication and PND. Gastrointestinal: Negative. Genitourinary: Negative. Musculoskeletal: Positive for back pain and neck pain. Skin: Negative. Neurological: Negative. Endo/Heme/Allergies: Bruises/bleeds easily. Psychiatric/Behavioral: Negative. Allergies Allergen Reactions ??? Codeine Sulfate Hyper ??? Codeine Other (See Comments) Becomes hyper MEDS Scheduled Meds: ??? carBAMazepine 200 mg Oral Nightly (2099) ??? cycloSPORINE modified 100 mg Oral BID ??? entecavir 0.5 mg Oral Q7 Days ??? epoetin giancarlo-epbx 6,000 Units Intravenous Once per day on Mon ??? gabapentin 100 mg Oral BID ??? heparin 5,000 Units Subcutaneous Q8H ??? hydrALAZINE 100 mg Oral 3 times per day ??? insulin glargine 10 Units Subcutaneous Nightly (2099) ??? insulin lispro 0-5 Units Subcutaneous TID AC ??? insulin lispro 6 Units Subcutaneous TID AC ??? lidocaine 1 patch Transdermal Q24H ??? LORazepam 0.5 mg Oral BID ??? melatonin 6 mg Oral Nightly (2099) ??? methocarbamoL 500 mg Oral QID ??? metoprolol tartrate 25 mg Oral BID ??? NIFEdipine 90 mg Oral 2 times per day ??? pantoprazole 40 mg Oral BID ??? QUEtiapine 12.5 mg Oral Nightly (2099) ??? terazosin 10 mg Oral Nightly (2099) ??? vancomycin 1,000 mg Intravenous Once per day on Mon Continuous Infusions: PRN Meds:.acetaminophen, albuterol, bisacodyL, dextrose 50 % in water (D50W) OR dextrose 50 % in water (D50W), glucose, heparin, porcine (PF), heparin, porcine (PF), lidocaine (PF) 2% (20 mg/mL),LORazepam AND LORazepam, oxyCODONE OR oxyCODONE, polyethylene glycol, proMETHazine, senna-docusate, sodium chloride 0.9 % VITALS Temp: [96.4 ??F (35.8 ??C)-98.6 ??F (37 ??C)] 98.6 ??F (37 ??C) Heart Rate: [65-100] 100 Resp: [18-20] 20 BP: (109-140)/(49-85) 138/85 Wt Readings from Last 3 Encounters: 06/22/20 (!) 306 lb (138.8 kg) 06/07/20 (!) 251 lb 15.8 oz (114.3 kg) 03/16/20 (!) 278 lb (126.1 kg) No intake/output data recorded. Intake/Output Summary (Last 24 hours) at 06/24/2020 2154 Last data filed at 06/24/2020 1800 Gross per 24 hour Intake 1440 ml Output 2750 ml Net -1310 ml PHYSICAL EXAM Updated on 06/24/2020 Physical Exam Constitutional: Appearance: Normal appearance. He is obese. HENT: Head: Normocephalic and atraumatic. Right Ear: External ear normal. Left Ear: External ear normal. Nose: Nose normal. Mouth/Throat: Mouth: Mucous membranes are dry. Pharynx: Oropharynx is clear. Eyes: Extraocular Movements: Extraocular movements intact. Conjunctiva/sclera: Conjunctivae normal. Pupils: Pupils are equal, round, and reactive to light. Neck: Musculoskeletal: Normal range of motion and neck supple. Cardiovascular: Rate and Rhythm: Normal rate and regular rhythm. Pulses: Normal pulses. Heart sounds: Normal heart sounds. Pulmonary: Effort: Pulmonary effort is normal. Breath sounds: Normal breath sounds. Abdominal: General: Bowel sounds are normal. Palpations: Abdomen is soft. Comments: Big scar of OLT seen Musculoskeletal: Normal range of motion. Right lower leg: Edema present. Left lower leg: Edema present. Skin: General: Skin is warm and dry. Neurological: General: No focal deficit present. Mental Status: He is alert and oriented to person, place, and time. Psychiatric: Mood and Affect: Mood normal. Behavior: Behavior normal. Thought Content: Thought content normal. Judgment: Judgment normal. Left AVF access : thrill and bruit + DATA : Recent Labs 06/22/20 0515 06/24/20 1218 WBC 4.8 5.0 HGB 6.7* 7.3* HCT 20.4* 22.3* PLT 270 282 Recent Labs 06/22/20 0515 NA 130* K 5.2 CL 93* CO2 27 BUN 27* CREATININE 6.49* GLUCOSE 104* Lab Results Component Value Date PTH 574.0 (H) 06/10/2020 CALCIUM 8.6 06/22/2020 PHOS 5.4 (H) 06/22/2020 Lab Results Component Value Date [id number] 15.8 (L) 01/14/2019 Lab Results Component Value Date IRON 19 (L) 06/02/2020 TIBC 172 (L) 06/02/2020 FERRITIN 1,132.0 (H) 06/02/2020 TESTS : In addition to the above, I have reviewed an extensive amount of complex data. Morbidity / complication risk is felt to be : moderate / high. SUMMARY : Aiden Stauffer Jr. is a 45 y.o.male OLTx Hep B + Tx then ESRD on IHD home HD in [place]. Admitted with epidural abscess s/p surgery and on IV ABx Assessment: Renal Function ESRD on IHD - home hemo now MWF needs 4 hrs today Electrolytes Pre HD K 5.2 on 22 Jun 2020 Running at 2K Na 130. Dialysate NA 140. Acid/Base Controlled with HD Bicarb 27 Dialysate bicarb 35. Vol. Status Uf as tolerated 3 L net. BP Hemodynamics stable. Anemia On MINERVA - no IV Fe in setting of infection and IV ABx with very elevated ferritin. SHPT Lyle 8.6 Phos 5.4 Not on any binders. Will continue to monitor, Other HepB + status - per ID needs dedicated machine protocol per Machine care etc Does not need to be isolated in the unit but needs ideally 2 empty bed spaces and others should be immune status. End of day end of loop etc. Access S/p PTCA -accessed and running well today ImmunoRx For OLT as per liver team recs. Plan: IHD 4 hrs. 2K bath. Abx post HD. This note was completely edited, written and [...] current evaluation and management for this patient. Enrike Mccracken MD, FLAVIA, FNKF. Asst. assistant project engineer Div. of Nephrology and Kidney [facility] [facility]. . E-mail: [email or web address] . * Enrike Mccracken MD - 06/22/2020 8:28 PM EST Renal follow up Evaluation Note Chief Complaint on Admission : sepisi epidural abscess HPI Aiden Stauffer . is an 45 y.o. male admitted to [facility] from [facility] with epidural abscess in setting ofimmunosuppression. Pt has laminectomy L5 and I&D of epidural abscess 04/29. 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 Pt seen while on dialysis. Denies SOB or chest pain. History: Past Medical History: Diagnosis Date ??? [...] Substance Use Topics ??? Alcohol use: No ??? Drug use: No HPI ROS. Updated on 06/22/2020 Review of Systems Constitutional: Positive for malaise/fatigue. Negative for chills, diaphoresis, fever and weight loss. HENT: Negative. Eyes: Negative. Respiratory: Negative. Cardiovascular: Negative for chest pain, palpitations, orthopnea, claudication, leg swelling and PND. Gastrointestinal: Negative. Genitourinary: Negative. Musculoskeletal: Positive for back pain and neck pain. Skin: Negative. Neurological: Negative. Endo/Heme/Allergies: Bruises/bleeds easily. Psychiatric/Behavioral: Negative. Allergies Allergen Reactions ??? Codeine Sulfate Hyper ??? Codeine Other (See Comments) Becomes hyper MEDS Scheduled Meds: ??? carBAMazepine 200 mg Oral Nightly (2099) ??? cycloSPORINE modified 100 mg Oral BID ??? entecavir 0.5 mg Oral Q7 Days ??? epoetin giancarlo-epbx 6,000 Units Intravenous Once per day on Mon ??? gabapentin 100 mg Oral BID ??? guaiFENesin 600 mg Oral BID ??? heparin 5,000 Units Subcutaneous Q8H ??? hydrALAZINE 100 mg Oral 3 times per day ??? insulin glargine 10 Units Subcutaneous Nightly (2099) ??? insulin lispro 0-5 Units Subcutaneous TID AC ??? insulin lispro 6 Units Subcutaneous TID AC ??? lidocaine 1 patch Transdermal Q24H ??? LORazepam 0.5 mg Oral BID ??? melatonin 6 mg Oral Nightly (2099) ??? methocarbamoL 500 mg Oral QID ??? metoprolol tartrate 25 mg Oral BID ??? NIFEdipine 90 mg Oral 2 times per day ??? pantoprazole 40 mg Oral BID ??? QUEtiapine 12.5 mg Oral Nightly (2099) ??? terazosin 10 mg Oral Nightly (2099) ??? vancomycin 1,000 mg Intravenous Once per day on Mon Continuous Infusions: PRN Meds:.acetaminophen, albuterol, bisacodyL, dextrose 50 % in water (D50W) OR dextrose 50 % in water (D50W), glucose, heparin, porcine (PF), heparin, porcine (PF), lidocaine (PF) 2% (20 mg/mL),LORazepam AND LORazepam, oxyCODONE OR oxyCODONE, polyethylene glycol, proMETHazine, senna-docusate, sodium chloride 0.9 % VITALS Temp: [96.9 ??F (36.1 ??C)-99.2 ??F (37.3 ??C)] 99.2 ??F (37.3 ??C) Heart Rate: [92-101] 96 Resp: [18] 18 BP: (117-143)/(50-81) 117/50 FiO2: [28 %] 28 % Wt Readings from Last 3 Encounters: 06/22/20 (!) 306 lb (138.8 kg) 06/07/20 (!) 251 lb 15.8 oz (114.3 kg) 03/16/20 (!) 278 lb (126.1 kg) I/O this shift: In: - Out: 100 [Urine:100] Intake/Output Summary (Last 24 hours) at 06/22/20202008 Last data filed at 06/22/2020 1901 Gross per 24 hour Intake 600 ml Output 1200 ml Net -600 ml PHYSICAL EXAM Updated on 06/22/2020 Physical Exam Constitutional: Appearance: Normal appearance. He is obese. HENT: Head: Normocephalic and atraumatic. Right Ear: External ear normal. Left Ear: External ear normal. Nose: Nose normal. Mouth/Throat: Mouth: Mucous membranes are dry. Pharynx: Oropharynx is clear. Eyes: Extraocular Movements: Extraocular movements intact. Conjunctiva/sclera: Conjunctivae normal. Pupils: Pupils are equal, round, and reactive to light. Neck: Musculoskeletal: Normal range of motion and neck supple. Cardiovascular: Rate and Rhythm: Normal rate and regular rhythm. Pulses: Normal pulses. Heart sounds: Normal heart sounds. Pulmonary: Effort: Pulmonary effort is normal. Breath sounds: Normal breath sounds. Abdominal: General: Bowel sounds are normal. Palpations: Abdomen is soft. Comments: Big scar of OLT seen Musculoskeletal: Normal range of motion. Right lower leg: No edema. Left lower leg: No edema. Skin: General: Skin is warm and dry. Neurological: General: No focal deficit present. Mental Status: He is alert and oriented to person, place, and time. Psychiatric: Mood and Affect: Mood normal. Behavior: Behavior normal. Thought Content: Thought content normal. Judgment: Judgment normal. Left AVF access : thrill and bruit + DATA : Recent Labs 06/22/20 0515 WBC 4.8 HGB 6.7* HCT 20.4* PLT 270 Recent Labs 06/22/20 0515 NA 130* K 5.2 CL 93* CO2 27 BUN 27* CREATININE 6.49* GLUCOSE 104* Lab Results Component Value Date PTH 574.0 (H) 06/10/2020 CALCIUM 8.6 06/22/2020 PHOS 5.4 (H) 06/22/2020 Lab Results Component Value Date [id number] 15.8 (L) 01/14/2019 Lab Results Component Value Date IRON 19 (L) 06/02/2020 TIBC 172 (L) 06/02/2020 FERRITIN 1,132.0 (H) 06/02/2020 TESTS : In addition to the above, I have reviewed an extensive amount of complex data. Morbidity / complication risk is felt to be : moderate / high. SUMMARY : Aiden Stauffer Jr. is a 45 y.o.male OLTx Hep B + Tx then ESRD on IHD home HD in [place]. Admitted with epidural abscess s/p surgery and on IV ABx Assessment: Renal Function ESRD on IHD - home hemo now MWF needs 4 hrs today Electrolytes Pre HD K 5.2 Running at 2K Na 130. Acid/Base Controlled with HD Bicarb 27/ Vol. Status Uf as tolerated BP Hemodynamics stable. Anemia On MINERVA - no IV Fe in setting of infection and IV ABx with very elevated ferritin. SHPT Lyle 8.6 Phos 5.4 Not on any binders. Will continue to monitor, Other HepB + status - per ID needs dedicated machine protocol per Machine care etc Does not need to be isolated in the unit but needs ideally 2 empty bed spaces and others should be immune status. End of day end of loop etc. Access S/p PTCA -accessed and running well today Plan: IHD 4 hrs. 2K bath. Abx post HD. .This note was copied forward from the note written by Dr Calderon on 19 Jun 2020. I have reviewed and updated the history, physical exam, data, assessment and plan of the note so that it reflects the evaluation and management of the patient on 22 Jun 2020. Enrike Mccracken MD, FLAVIA, SUNITA. Asst. assistant project engineer Div. of Nephrology and Kidney [facility] Program [facility]. . E-mail: [email or web address] . * Avril Calderon MD - 06/19/2020 8:44 AM EST Renal follow up Evaluation Note Chief Complaint on Admission : sepisi epidural abscess HPI Aiden Stauffer Jr. is an 45 y.o. male admitted to [facility] from [facility] with epidural abscess in setting ofimmunosuppression. Pt has laminectomy L5 and I&D of epidural abscess 04/29. 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 unalbe to use his cpap per his report so falls asleep easily wakes easily Access is running much better today in IHD Pt seen on IHD qb 350+ K noted will use 2K today History: Past Medical History: Diagnosis Date ??? [...] Substance Use Topics ??? Alcohol use: No ??? Drug use: No HPI ROS. General : No fevers chills ENT : No ear pain, hearing loss CV : No chest pain, No SOB, No ankle swelling RS : + cough, no sputum GIT : No N, V, abdominal pain, Haem : No bruising, bleeding, MSK: + back and leg pain same Allergies Allergen Reactions ??? Codeine Sulfate Hyper ??? Codeine Other (See Comments) Becomes hyper MEDS Scheduled Meds: ??? carBAMazepine 200 mg Oral Nightly (2099) ??? cycloSPORINE modified 75 mg Oral BID ??? entecavir 0.5 mg Oral Q7 Days ??? epoetin giancarlo-epbx 6,000 Units Intravenous Once per day on Mon ??? fluconazole 200 mg Oral Daily 09 ??? gabapentin 100 mg Oral BID ??? heparin 5,000 Units Subcutaneous Q8H ??? hydrALAZINE 100 mg Oral 3 times per day ??? insulin glargine 10 Units Subcutaneous Nightly (2099) ??? insulin lispro 0-5 Units Subcutaneous TID AC ??? LORazepam 0.5 mg Oral BID ??? melatonin 6 mg Oral Nightly (2099) ??? methocarbamoL 500 mg Oral QID ??? metoprolol tartrate 25 mg Oral BID ??? NIFEdipine 90 mg Oral 2 times per day ??? pantoprazole 40 mg Oral BID ??? QUEtiapine 12.5 mg Oral Nightly (2099) ??? terazosin 10 mg Oral Nightly (2099) ??? vancomycin 1,000 mg Intravenous Once per day on Mon Continuous Infusions: PRN Meds:.acetaminophen, albuterol, bisacodyL, dextrose 50 % in water (D50W) OR dextrose 50 % in water (D50W), glucose, heparin, porcine (PF), heparin, porcine (PF), lidocaine (PF) 2% (20 mg/mL),LORazepam AND LORazepam, oxyCODONE OR oxyCODONE, polyethylene glycol, proMETHazine, senna-docusate, sodium chloride 0.9 % VITALS Temp: [98 ??F (36.7 ??C)-99 ??F (37.2 ??C)] 98.9 ??F (37.2 ??C) Heart Rate: [90-104] 90 Resp: [16-18] 16 BP: (103-125)/(54-85) 103/85 FiO2: [21 %-28 %] 28 % Wt Readings from Last 3 Encounters: 06/15/20 (!) 274 lb 14.4 oz (124.7 kg) 06/07/20 (!) 251 lb 15.8 oz (114.3 kg) 03/16/20 (!) 278 lb (126.1 kg) No intake/output data recorded. Intake/Output Summary (Last 24 hours) at 06/19/2020 0844 Last data filed at 06/18/20202015 Gross per 24 hour Intake 1080 ml Output -- Net 1080 ml PHYSICAL EXAM Constitutional : Awake, alert, appropriate, no acute distress, well developed, nourished, hydrated, Comfortable lying flat on 2-3L NCO2 Skin : No rash, lesions, warm to touch skin dry Head : atraumatic, normocephalic. External ears and nose normal Eyes : no injection, icterus, EOM intact grossly, ENT : external ears, nose & tongue normal, Neck : supple, RESP : No respiratory distress, Bilat clear to auscultation, BS vesicular, CV : HR regular, HS S1 S2 LE edema none ABD/GIT : Large scars from OLTx surgery soft, non-tender, BS normal. Psych : mood and affect appropriate, normal interaction, orientation, eye contact. Access : L AVF + thrill and bruit DATA : Recent Labs 06/19/20 0602 WBC 5.9 HGB 7.3* HCT 22.5* PLT 254 Recent Labs 06/17/20 1220 06/19/20 0602 NA 136 133 K 4.3 5.5* CL 100 94* CO2 31 27 BUN 20 29* CREATININE 3.60* 5.97* GLUCOSE 122* 147* Lab Results Component Value Date PTH 574.0 (H) 06/10/2020 CALCIUM 9.2 06/19/2020 PHOS 5.5 (H) 06/19/2020 Lab Results Component Value Date [id number] 15.8 (L) 01/14/2019 Lab Results Component Value Date IRON 19 (L) 06/02/2020 TIBC 172 (L) 06/02/2020 FERRITIN 1,132.0 (H) 06/02/2020 TESTS : In addition to the above, I have reviewed an extensive amount of complex data. Morbidity / complication risk is felt to be : moderate / high. SUMMARY : Aiden Stauffer Jr. is a 45 y.o.male OLTx Hep B + Tx then ESRD on IHD home HD in [place] Admitted with epidural abscess s/p surgery and on IV ABx Assessment: Renal Function ESRD on IHD - home hemo - now MWF needs 4 hrs today - K continues to run high 2K Electrolytes See plan Acid/Base Controlled with HD Vol. Status Uf as tolerated - BP Controlled / low on meds as listed Anemia On MINERVA - no IV Fe in setting of infection and IV ABx with very elevated ferritin SHPT Ca Pi controlled no binders Other BepB + status - per ID needs dedicated machine protocol per Machine care etc Does not need to be isolated in the unit but needs ideally 2 empty bed spaces and others should be immune status. End of day end of loop etc. Access S/p PTCA -accessed and running well today Plan: 2 k again today Heparin 500/500 today Very low K diet, watch K over the weekend and treat medically if elevated. Abx as per primary post HD Avril Calderon 06/19/2020 Thanks call if questions # [phone] The HPI, ROS and physical exam were reviewed and copied forward (with edits) from a note written byme previously. I have reviewed and updated the history, physical exam, data, assessment, and plan of the note so that it reflects my evaluation and management of the patient. * Avril Calderon MD - 06/17/2020 10:44 AM EST Renal follow up Evaluation Note Chief Complaint on Admission : sepisi epidural abscess HPI Aiden Stauffer Jr. is an 45 y.o. male admitted to [facility] from [facility] with epidural abscess in setting ofimmunosuppression. Pt has laminectomy L5 and I&D of epidural abscess 04/29. 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 Multiple issues with access today - multiple sticks and clotting. Pt is without concerns other than reports coughing up the black stuff again this am Apparently it had stopped yesterday and has returned No SOB no pain and has again stopped. K was 5 yesterday - is running high and pt has been eating K+ foods in evenings - per his report Pt says access has been an issue on and off since he had his recent back surgery. Repeat K ordered for pre HD 06/15 was cancelled, was reordered and sent from IHD so the 06/15 2 pm lab reflects K after med therapies undertaken pre HD that day. Was dialysed 1 hr then 2 and repeat after HD of 3.4 is inaccurately Low and not a true reflection of post HD K due to being drawn too soon after IHD completed. The am yesterday is more reliable, will plan to use low K again today and repeat lab am HB remains low. History: Past Medical History: Diagnosis Date ??? [...] Substance Use Topics ??? Alcohol use: No ??? Drug use: No HPI ROS. General : No fevers chills ENT : No ear pain, hearing loss CV : No chest pain, No SOB, No ankle swelling RS : + cough, + black sputum again this am GIT : No N, V, abdominal pain, Haem : No bruising, bleeding, MSK: + back and leg pain ongoing Allergies Allergen Reactions ??? Codeine Sulfate Hyper ??? Codeine Other (See Comments) Becomes hyper MEDS Scheduled Meds: ??? carBAMazepine 200 mg Oral Nightly (2099) ??? carbamide peroxide 5 drop Left Ear BID ??? cycloSPORINE modified 75 mg Oral BID ??? entecavir 0.5 mg Oral Q7 Days ??? epoetin giancarlo-epbx 6,000 Units Intravenous Once per day on Mon ??? fluconazole 200 mg Oral Daily 0900 ??? gabapentin 100 mg Oral BID ??? heparin 5,000 Units Subcutaneous Q8H ??? hydrALAZINE 100 mg Oral 3 times per day ??? insulin glargine 10 Units Subcutaneous Nightly (2099) ??? insulin lispro 0-5 Units Subcutaneous TID AC ??? insulin lispro 8 Units Subcutaneous TID AC ??? LORazepam 0.5 mg Oral BID ??? melatonin 6 mg Oral Nightly (2099) ??? methocarbamoL 500 mg Oral QID ??? metoprolol tartrate 25 mg Oral BID ??? NIFEdipine 90 mg Oral 2 times per day ??? pantoprazole 40 mg Oral BID ??? QUEtiapine 12.5 mg Oral Nightly (2099) ??? terazosin 10 mg Oral Nightly (2099) ??? vancomycin 1,000 mg Intravenous Once per day on Mon Continuous Infusions: PRN Meds:.acetaminophen, albuterol, bisacodyL, dextrose 50 % in water (D50W) OR dextrose 50 % in water (D50W), glucose, lidocaine (PF) 2% (20 mg/mL), LORazepam AND LORazepam, oxyCODONE ORoxyCODONE, polyethylene glycol, proMETHazine, senna-docusate, sodium chloride 0.9 % VITALS Temp: [98.2 ??F (36.8 ??C)-99.1 ??F (37.3 ??C)] 98.2 ??F (36.8 ??C) Heart Rate: [86-105] 86 Resp: [18] 18 BP: (125-157)/(62-68) 130/65 FiO2: [21 %-28 %] 28 % Wt Readings from Last 3 Encounters: 06/15/20 (!) 274 lb 14.4 oz (124.7 kg) 06/07/20 (!) 251 lb 15.8 oz (114.3 kg) 03/16/20 (!) 278 lb (126.1 kg) No intake/output data recorded. Intake/Output Summary (Last 24 hours) at 06/17/2020 1038 Last data filed at 06/17/2020 0600 Gross per 24 hour Intake 480 ml Output 0 ml Net 480 ml PHYSICAL EXAM Constitutional : Awake, alert, appropriate, no acute distress, well developed, nourished, hydrated, Comfortable lying flat on 2-3L NCO2 Skin : No rash, lesions, warm to touch skin dry Head : atraumatic, normocephalic. External ears and nose normal Eyes : no injection, icterus, EOM intact grossly, ENT : external ears, nose & tongue normal, Neck : supple, RESP : No respiratory distress, Bilat clear to auscultation, BS vesicular, CV : HR regular, HS S1 S2 LE edema none ABD/GIT : Large scars from OLTx surgery soft, non-tender, BS normal. Psych : mood and affect appropriate, normal interaction, orientation, eye contact. Access : Margaret SANTAMARIA accessed DATA : Recent Labs 06/15/20 0538 06/16/20 0555 WBC 6.9 4.3 HGB 7.8* 7.2* HCT 22.8* 21.7* PLT 271 223 Recent Labs 06/15/20 1414 06/15/20 1830 06/16/20 0555 NA 132* 137 135 K 6.9* 3.4* 5.0 CL 94* 97* 97* CO2 29 32 30 BUN 35* 10 19 CREATININE 5.87* 2.15* 4.71* GLUCOSE 99 94 125* Lab Results Component Value Date PTH 574.0 (H) 06/10/2020 CALCIUM 8.8 06/16/2020 PHOS 5.8 (H) 06/15/2020 Lab Results Component Value Date [id number] 15.8 (L) 01/14/2019 Lab Results Component Value Date IRON 19 (L) 06/02/2020 TIBC 172 (L) 06/02/2020 FERRITIN 1,132.0 (H) 06/02/2020 TESTS : In addition to the above, I have reviewed an extensive amount of complex data. Morbidity / complication risk is felt to be : moderate / high. SUMMARY : Aiden Stauffer Jr. is a 45 y.o.male OLTx Hep B + Tx then ESRD on IHD home HD in [place] Admitted with epidural abscess s/p surgery and on IV ABx Assessment: Renal Function ESRD on IHD - home hemo - now MWF needs 4 hrs today - K continues to run high Electrolytes See plan Acid/Base Controlled with HD Vol. Status Uf as tolerated - BP Controlled / low on meds as listed Anemia On MINERVA - no IV Fe in setting of infection and IV ABx with very elevated ferritin SHPT Ca Pi controlled no binders Other BepB + status - per ID needs dedicated machine protocol per Machine care etc Does not need to be isolated in the unit but needs ideally 2 empty bed spaces and others should be immune status. End of day end of loop etc. Plan: 1 K first hr then 2 k again today Stat K now as I do not feel we will get through HD well today Repeat K tomorrow am as well Heparin 500/500 today Very low K diet Abx as per primary post HD Will try to get access intervention tomorrow if possible vs PC placement. Have discussed with pt he understands and agrees with plan. He will not go home until we have clarity on the access situation or at least till after IHD Monday. Have discussed also with Dr oMlina. Avril Calderon 06/17/2020 Thanks call if questions # [phone] The HPI, ROS and physical exam were reviewed and copied forward (with edits) from a note written byme previously. I have reviewed and updated the history, physical exam, data, assessment, and plan of the note so that it reflects my evaluation and management of the patient. * Avril Calderon MD - 06/15/2020 11:32 AM EST Renal follow up Evaluation Note Chief Complaint on Admission : sepisi epidural abscess HPI Aiden Stauffer Jr. is an 45 y.o. male admitted to [facility] from [facility] with epidural abscess in setting ofimmunosuppression. Pt has laminectomy L5 and I&D of epidural abscess 04/29. 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 [...] Substance Use Topics ??? Alcohol use: No ??? Drug use: No HPI ROS. General : No fevers chills ENT : No ear pain, hearing loss CV : No chest pain, No SOB, No ankle swelling RS : + cough, + black sputum GIT : No N, V, abdominal pain, Haem : No bruising, bleeding, MSK: + back and leg pain ongoing Allergies Allergen Reactions ??? Codeine Sulfate Hyper ??? Codeine Other (See Comments) Becomes hyper MEDS Scheduled Meds: ??? carBAMazepine 200 mg Oral Nightly (2099) ??? carbamide peroxide 5 drop Left Ear BID ??? cycloSPORINE modified 75 mg Oral BID ??? entecavir 0.5 mg Oral Q7 Days ??? epoetin giancarlo-epbx 6,000 Units Intravenous Once per day on Mon ??? fluconazole 200 mg Oral Daily 0900 ??? gabapentin 100 mg Oral BID ??? heparin 5,000 Units Subcutaneous Q8H ??? hydrALAZINE 100 mg Oral 3 times per day ??? insulin glargine 10 Units Subcutaneous Nightly (2099) ??? insulin lispro 0-5 Units Subcutaneous TID AC ??? insulin lispro 8 Units Subcutaneous TID AC ??? LORazepam 0.5 mg Oral BID ??? melatonin 6 mg Oral Nightly (2099) ??? methocarbamoL 500 mg Oral QID ??? metoprolol tartrate 25 mg Oral BID ??? NIFEdipine 90 mg Oral 2 times per day ??? pantoprazole 40 mg Oral BID ??? QUEtiapine 12.5 mg Oral Nightly (2099) ??? sodium bicarbonate ??? sodium bicarbonate 1,300 mg Oral Once ??? terazosin 10 mg Oral Nightly (2099) ??? vancomycin 1,000 mg Intravenous Once per day on Mon Continuous Infusions: PRN Meds:.acetaminophen, albuterol, bisacodyL, dextrose 50 % in water (D50W) OR dextrose 50 % in water (D50W), glucose, lidocaine (PF) 2% (20 mg/mL), LORazepam AND LORazepam, oxyCODONE ORoxyCODONE, polyethylene glycol, proMETHazine, senna-docusate, sodium chloride 0.9 % VITALS Temp: [98.2 ??F (36.8 ??C)-98.9 ??F (37.2 ??C)] 98.9 ??F (37.2 ??C) Heart Rate: [101-108] 105 Resp: [18-20] 20 BP: (125-148)/(71-81) 132/71 FiO2: [21 %] 21 % Wt Readings from Last 3 Encounters: 06/15/20 (!) 274 lb 14.4 oz (124.7 kg) 06/07/20 (!) 251 lb 15.8 oz (114.3 kg) 03/16/20 (!) 278 lb (126.1 kg) No intake/output data recorded. Intake/Output Summary (Last 24 hours) at 06/15/2020 1127 Last data filed at 06/15/2020 0500 Gross per 24 hour Intake 600 ml Output 500 ml Net 100 ml PHYSICAL EXAM Constitutional : Awake, alert, appropriate, no acute distress, well developed, nourished, hydrated, Comfortable lying flat Skin : No rash, lesions, warm to touch skin dry Head : atraumatic, normocephalic. External ears and nose normal Eyes : no injection, icterus, EOM intact grossly, ENT : external ears, nose & tongue normal, Neck : supple, RESP : No respiratory distress, Bilat clear to auscultation, BS vesicular, CV : HR regular, HS S1 S2 LE edema none ABD/GIT : Large scars from OLTx surgery soft, non-tender, BS normal. Psych : mood and affect appropriate, normal interaction, orientation, eye contact. Access L AVF + thrill & bruit DATA : Recent Labs 06/13/20 0638 06/15/20 0538 WBC 4.2 6.9 HGB 8.1* 7.8* HCT 25.1* 22.8* PLT 224 271 Recent Labs 06/15/20 0538 NA 132* K 6.5* CL 94* CO2 29 BUN 30* CREATININE 6.57* GLUCOSE 139* Lab Results Component Value Date PTH 574.0 (H) 06/10/2020 CALCIUM 8.8 06/15/2020 PHOS 6.1 (H) 06/15/2020 Lab Results Component Value Date [id number] 15.8 (L) 01/14/2019 Lab Results Component Value Date IRON 19 (L) 06/02/2020 TIBC 172 (L) 06/02/2020 FERRITIN 1,132.0 (H) 06/02/2020 TESTS : In addition to the above, I have reviewed an extensive amount of complex data. Morbidity / complication risk is felt to be : moderate / high. SUMMARY : Aiden Stauffer is a 45 y.o.male OLTx Hep B + Tx then ESRD on IHD home HD in [place] Admitted with epidural abscess s/p surgery and on IV ABx Assessment: Renal Function ESRD on IHD - home hemo - now MWF tolerating 3-4 hrs - pt requestis less time Electrolytes K elevated this am - see below Acid/Base Controlled with HD Vol. Status Pt believes he is below his EDWt and wants low uf BP Controlled / low on meds as listed Anemia On MINERVA - no IV Fe in setting of infection and IV ABx with very elevated ferritin SHPT Ca Pi controlled no binders Other BepB + status - per ID needs dedicated machine protocol per Machine care etc Does not need to be isolated in the unit but needs ideally 2 empty bed spaces and others should be immune status. End of day end of loop etc. Plan: Medically Rx elevated K D/W primary Rn and Hospitalist. carlos is pending Rx elevated K as discussed, access is an issue Will order repeat renal pre HD HD [facility] but is late shift due to Hep status Use 1K 1st hr then 2 K - pending results of lab Will need very low K diet. Avril Calderon 06/15/2020 Thanks call if questions # [phone] The HPI, ROS and physical exam were reviewed and copied forward (with edits) from a note written byme previously. I have reviewed and updated the history, physical exam, data, assessment, and plan of the note so that it reflects my evaluation and management of the patient. * Enrike Mccracken MD - 06/12/2020 1:31 PM EDT Renal follow up Note Reason for Renal Evaluation : ESRD IHD Referred by :Dr Zavala Renal Attending : Dr Mccracken Chief Complaint on Admission : sepisi epidural abscess HPI Aiden Stauffer Jr. is an 45 y.o. male admitted to [facility] from [facility] with epidural abscess in setting ofimmunosuppression. Pt has laminectomy L5 and I&D of epidural abscess 04/29. 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 Seen in his room. C/o leg and back pain. Says that he is used to home dialysis Rx and gets overwhelmed with incenter dialysis History: Past Medical History: Diagnosis Date ??? [...] Substance Use Topics ??? Alcohol use: No ??? Drug use: No HPI ROS. ROS updated 06/12/2020 Review of Systems Constitutional: Negative. HENT: Negative. Eyes: Negative. Respiratory: Negative. Cardiovascular: Negative. Gastrointestinal: Negative. Genitourinary: Negative. Musculoskeletal: Positive for back pain and neck pain. Leg pain Skin: Negative. Neurological: Negative. Endo/Heme/Allergies: Negative. Psychiatric/Behavioral: Negative. Allergies Allergen Reactions ??? Codeine Sulfate Hyper ??? Codeine Other (See Comments) Becomes hyper MEDS No current facility-administered medications on file prior to encounter. Current Outpatient Medications on File Prior to Encounter Medication Sig Dispense Refill ??? ALPRAZolam (XANAX) 0.25 MG tablet TAKE 1 Tablet by mouth daily 15 minutes prior to dialysis ??? ALPRAZolam (XANAX) 0.5 MG tablet TAKE ONE TABLET BY MOUTH DAILY prior TO dialysis ??? ALPRAZolam (XANAX) 1 MG tablet Take by mouth. ??? aspirin 81 MG chewable tablet Chew 1 tablet (81 mg total) by mouth daily with breakfast. 30 tablet 5 ??? blood sugar diagnostic [facility] Use to test blood sugar up to 4 times a day. Diagnosis for use: E 9.65. For use with One Touch Verio meters. 150 strip 5 ??? blood-glucose meter (ONETOUCH VERIO SYSTEM) [facility] [place] Use as instructed. 1 each 0 ??? calcitRIOL (ROCALTROL) 0.25 MCG capsule Take by mouth. ??? calcium acetate,phosphat bind, (PHOSLO) 667 mg capsule Take by mouth. ??? carBAMazepine (TEGRETOL) 200 mg tablet Take 200 mg by mouth at bedtime. ??? carBAMazepine ER (TEGRETOL XR) 200 MG 12 hr tablet Take by mouth. ??? cephALEXin (KEFLEX) 500 MG capsule TAKE ONE CAPSULE BY MOUTH TWICE DAILY FOR SEVEN DAYS ??? cyclobenzaprine (FLEXERIL) 10 MG tablet TAKE ONE TABLET BY MOUTH EVERY EIGHT HOURS NEEDED FOR MUSCLE SPASMS ??? cycloSPORINE modified (NEORAL) 25 MG capsule Take 2 capsules (50 mg total) by mouth 2 times a day. 120 capsule 5 ??? cycloSPORINE, SANDIMMUNE, 25 MG capsule Take by mouth. ??? doxazosin (CARDURA) 8 MG tablet 8 mg daily. ??? doxycycline (MONODOX) 100 MG capsule Take 100 mg by mouth 2 times a day. ??? entecavir (BARACLUDE) 0.5 MG tablet Take 1 tablet (0.5 mg total) by mouth every 7 days. 4 tablet 5 ??? ergocalciferol (VITAMIN D2) 50,000 unit capsule Take 50,000 Units by mouth. Twice a week ??? famotidine (PEPCID) 20 MG tablet Take 20 mg by mouth daily. ??? fluconazole (DIFLUCAN) 100 MG tablet Take 100 mg by mouth daily. ??? fluticasone propionate (FLONASE) 50 mcg/actuation nasal spray Use into each nostril. ??? gabapentin (NEURONTIN) 100 MG capsule Take 4 capsules (400 mg total) by mouth daily. 180 capsule 0 ??? gabapentin (NEURONTIN) 100 MG capsule Take by mouth. ??? gabapentin (NEURONTIN) 800 MG tablet Take by mouth. ? ? gabapentin (NEURONTIN) 800 MG tablet take 1&1/2 TABLETS BY MOUTH THREE TIMES DAILY ??? hydrALAZINE (APRESOLINE) 100 MG tablet TAKE ONE TABLET THREE TIMES DAILY ??? hydrALAZINE (APRESOLINE) 50 MG tablet Take 100 mg by mouth 3 times a day. ??? hydrALAZINE (APRESOLINE) 50 MG tablet Take by mouth. ??? hydrocortisone 2.5 % cream Apply to face daily as directed ??? hydrOXYzine pamoate (VISTARIL) 25 MG capsule take 1 Capsule by mouth daily 1 hour prior to dialysis ??? insulin NPH and regular human (HUMULIN 70/30 U-100 KWIKPEN) 100 unit/mL (70- 30) InPn Inject subcutaneously. ??? insulin NPH isoph U-100 human (HUMULIN N NPH INSULIN KWIKPEN) 100 unit/mL (3 mL) InPn Inject subcutaneously 20 units in the AM and 8 units in the PM. (Patient taking differently: Inject subcutaneously 48 units in the AM and 24 units in the PM as needed ) 15 mL 5 ??? JANUVIA 100 mg tablet ??? ketoconazole (NIZORAL) 2 % shampoo Wash hairline and face 2-3 times weekly ??? lancets ([employer] LANCETS) 33 gauge Mis Use 1 strip as directed 4 times daily before meals and at bedtime. 150 each 5 ??? lidocaine-prilocaine (EMLA) cream Apply topically. ??? linezolid (ZYVOX) 600 mg tablet Take 600 mg by mouth 2 times a day. ??? lisinopriL (PRINIVIL) 40 MG tablet Take 40 mg by mouth daily. ??? methocarbamoL (ROBAXIN) 500 MG tablet TAKE ONE TABLET EVERY EIGHT HOURS NEEDED FOR MUSCLE SPASMS ??? metoprolol succinate (TOPROL-XL) 100 MG 24 hr tablet Take 100 mg by mouth at bedtime. ??? metoprolol tartrate (LOPRESSOR) 100 MG tablet Take by mouth. ??? metoprolol tartrate (LOPRESSOR) 50 MG tablet Take by mouth. ??? mycophenolate (CELLCEPT) 250 mg capsule Take 1 capsule (250 mg total) by mouth 2 times a day. 60 capsule 11 ??? NIFEdipine (PROCARDIA-XL) 90 MG (OSM) 24 hr tablet Take 90 mg by mouth 2 times a day. ??? ondansetron (ZOFRAN) 4 MG tablet Take by mouth. ??? ondansetron (ZOFRAN-ODT) 4 MG disintegrating tablet every 8 hours as needed. ??? oxyCODONE (ROXICODONE) 5 MG immediate release tablet Take 5 mg by mouth every 6 hours as needed. ??? oxyCODONE-acetaminophen (PERCOCET) 10-325 mg per tablet TAKE ONE TABLET BY MOUTH THREE TIMES DAILY NEEDED FOR SEVERE pain ??? pen needle, diabetic 32 gauge x Ndle Use as directed to inject insulin 4 times daily. 150each 5 ??? polyethylene glycol (MIRALAX) 17 gram packet Take 17 g by mouth 2 times a day as needed. 100 packet 0 ??? proMETHazine (PHENERGAN) 25 MG tablet take 1 tablet by ORAL route every 6 hours as needed ??? valACYclovir (VALTREX) 1000 MG tablet Take 1,000 mg by mouth 3 times a day. ??? vancomycin (VANCOCIN) 750 mg SolR Intravenous. Scheduled Meds: ??? carBAMazepine 200 mg Oral Nightly (2099) ??? cycloSPORINE modified 75 mg Oral BID ??? entecavir 0.5 mg Oral Q7 Days ??? epoetin giancarlo-epbx 6,000 Units Intravenous Once per day on Mon ??? fluconazole 200 mg Oral Daily 0900 ??? gabapentin 200 mg Oral Nightly (2099) ??? heparin 5,000 Units Subcutaneous Q8H ??? hydrALAZINE 100 mg Oral 3 times per day ??? insulin glargine 10 Units Subcutaneous Nightly (2099) ??? insulin lispro 0-5 Units Subcutaneous TID AC ??? insulin lispro 4 Units Subcutaneous TID AC ??? melatonin 6 mg Oral Nightly (2099) ??? methocarbamoL 500 mg Oral QID ??? metoprolol tartrate 25 mg Oral BID ??? NIFEdipine 90 mg Oral 2 times per day ??? pantoprazole 40 mg Oral DAILY 0600 ??? QUEtiapine 12.5 mg Oral Nightly (2099) ??? terazosin 10 mg Oral Nightly (2099) ??? vancomycin 1,000 mg Intravenous Once per day on Mon Continuous Infusions: PRN Meds:.acetaminophen, albuterol, bisacodyL, dextrose 50 % in water (D50W) OR dextrose 50 % in water (D50W), glucose, lidocaine (PF) 2% (20 mg/mL), LORazepam, oxyCODONE OR oxyCODONE, polyethylene glycol, proMETHazine, senna- docusate, sodium chloride 0.9 % VITALS Temp: [98.4 ??F (36.9 ??C)-98.9 ??F (37.2 ??C)] 98.5 ??F (36.9 ??C) Heart Rate: [96-104] 98 Resp: [20] 20 BP: (106-127)/(50-65) 120/65 FiO2: [21 %] 21 % Wt Readings from Last 3 Encounters: 06/08/20 (!) 245 lb 7 oz (111.3 kg) 06/07/20 (!) 251 lb 15.8 oz (114.3 kg) 03/16/20 (!) 278 lb (126.1 kg) No intake/output data recorded. Intake/Output Summary (Last 24 hours) at 06/12/2020 1315 Last data filed at 06/11/2020 1818 Gross per 24 hour Intake 600 ml Output -- Net 600 ml PHYSICAL EXAM Updated on 06/12/2020 Physical Exam Constitutional: General: He is not in acute distress. Comments: Awake Comfortable and lying flat on the bed. HENT: Head: Normocephalic and atraumatic. Mouth/Throat: Mouth: Mucous membranes are dry. Pharynx: Oropharynx is clear. Eyes: Extraocular Movements: Extraocular movements intact. Conjunctiva/sclera: Conjunctivae normal. Pupils: Pupils are equal, round, and reactive to light. Neck: Musculoskeletal: Neck supple. Cardiovascular: Rate and Rhythm: Normal rate and regular rhythm. Pulses: Normal pulses. Heart sounds: Normal heart sounds. Pulmonary: Effort: Pulmonary effort is normal. Breath sounds: Normal breath sounds. Abdominal: General: Bowel sounds are normal. There is distension. Palpations: Abdomen is soft. Comments: OLT scan noted Musculoskeletal: Right lower leg: No edema. Left lower leg: No edema. Comments: No wasting of muscles. Skin: General: Skin is dry. Neurological: General: No focal deficit present. Mental Status: He is alert and oriented to person, place, and time. Sensory: No sensory deficit. Psychiatric: Mood and Affect: Mood normal. Behavior: Behavior normal. Thought Content: Thought content normal. Judgment: Judgment normal. DATA : Recent Labs 06/10/20 1525 06/12/20 0545 WBC 5.8 5.0 HGB 6.9* 7.0* HCT 20.8* 21.5* PLT 283 226 Recent Labs 06/10/20 1525 06/12/20 0545 NA 134 134 K 5.1 5.6* CL 97* 97* CO2 27 28 BUN 35* 24 CREATININE 7.90* 5.96* GLUCOSE 135* 104* Lab Results Component Value Date PTH 574.0 (H) 06/10/2020 CALCIUM 8.6 06/12/2020 PHOS 4.3 06/12/2020 Lab Results Component Value Date [id number] 15.8 (L) 01/14/2019 Lab Results Component Value Date IRON 19 (L) 06/02/2020 TIBC 172 (L) 06/02/2020 FERRITIN 1,132.0 (H) 06/02/2020 TESTS : In addition to the above, I have reviewed an extensive amount of complex data. Morbidity / complication risk is felt to be : high. SUMMARY : Aiden Stauffer Jr. is a 45 y.o.male OLTx Hep B + Tx then ESRD on IHD home HD in [place] Admitted with epidural abscess s/p surgery and on IV ABx Assessment: I saw the patient today along with resident / CASH CHECKER / medical student / fellow. I was present with theresident during the history and exam. I discussed the case with the him/her and agree with the findings and plan as documented in the note. ESRD Aiden Stauffer Jr. was seen on IHD - dialysis dependent since 6 months - Funeral Director And Embalmer: Dr Millan - Outpatient unit: Home hemodialysis -Typical schedule: Home dialysis Rx : 5 days a week 3 hrs each session, Currently on MWF. Seen on iHD Ordered for dialysis entered. Acid/Base & Electrolytes K 5.6 Na 134 No acidosis Lab Results Component Value Date CREATININE 5.96 (H) 06/12/2020 BUN 24 06/12/2020 NA 134 06/12/2020 K 5.6 (H) 06/12/2020 CL 97 (L) 06/12/2020 CO2 28 06/12/2020 Manage with dialysis. Volume Status/ Blood Pressure Clinically euvolemic, UF max 1L if tolerated Anemia Will be getting blood transfusion today on HD. On MINERVA: EPO 6000 units MWF. Lab Results Component Value Date WBC 5.0 06/12/2020 HGB 7.0 (L) 06/12/2020 HCT 21.5 (L) 06/12/2020 MCV 93.8 06/12/2020 PLT 226 06/12/2020 Lab Results Component Value Date IRON 19 (L) 06/02/2020 TIBC 172 (L) 06/02/2020 FERRITIN 1,132.0 (H) 06/02/2020 BMD: Lab Results Component Value Date PTH 574.0 (H) 06/10/2020 CALCIUM 8.6 06/12/2020 PHOS 4.3 06/12/2020 Lab Results Component Value Date [id number] 15.8 (L) 01/14/2019 - Binders: none - Vitamin D analogs: none OLT: On immunosuppression. Manage as per hepatology. Plan: Continue dialysis MWF. Will use 2K bath. This note was copied forward from the note written by Dr Calderon on 10 Apr 2020. I have reviewed and updated the history, physical exam, data, assessment and plan of the note so that it reflects the evaluation and management of the patient on 12 apr 2020. Enrike Mccracken MD, FLAVIA, FNKF. Asst. assistant project engineer Div. of Nephrology and Kidney [facility] Program [facility]. . E-mail: [email or web address]. * Avril Calderon MD - 06/10/2020 8:56 AM EDTAssociated Order(s): IP CONSULT TO NEPHROLOGY Renal Initial Evaluation Note Reason for Renal Evaluation : ESRD IHD Referred by :Dr Zavala Renal Attending : Dr Calderon Chief Complaint on Admission : sepisi epidural abscess HPI Aiden Oviedo Eh Parra. is an 45 y.o. male admitted to [facility] from [facility] with epidural abscess in setting ofimmunosuppression. Pt has laminectomy L5 and I&D of epidural abscess 04/29. Cx + for staph epi - rx vanc q hd MWF SAL cirrhosis OLTx 2017, also pul Htn JC DM HTN obesity who is ESRD doing home hemo x12/18 Dr Millan fitter hand in [place] Seen today in room. Had OLTx which was hep B + is suppressed with weekly entecavir Is concerned about long duration of IHD and UF at . Has less back pain today but has chronic RLeg pain when sitting Has prolonged course of IV ABx post HD History: Past Medical History: Diagnosis Date ??? [...] Substance Use Topics ??? Alcohol use: No ??? Drug use: No HPI ROS. General : No fevers chills ENT : No ear pain, hearing loss sinus pain CV : No chest pain, No SOB, No ankle swelling RS : No cough, GIT : No N, V, abdominal pain, C, D, Neuro : No faints,MACK, Haem : No lumps, bruising, bleeding, MSK: + back and leg pain Allergies Allergen Reactions ??? Codeine Sulfate Hyper ??? Codeine Other (See Comments) Becomes hyper MEDS No current facility-administered medications on file prior to encounter. Current Outpatient Medications on File Prior to Encounter Medication Sig Dispense Refill ??? ALPRAZolam (XANAX) 0.25 MG tablet TAKE 1 Tablet by mouth daily 15 minutes prior to dialysis ??? ALPRAZolam (XANAX) 0.5 MG tablet TAKE ONE TABLET BY MOUTH DAILY prior TO dialysis ??? ALPRAZolam (XANAX) 1 MG tablet Take by mouth. ??? aspirin 81 MG chewable tablet Chew 1 tablet (81 mg total) by mouth daily with breakfast. 30 tablet 5 ??? blood sugar diagnostic Strp Use to test blood sugar up to 4 times a day. Diagnosis for use: E 9.65. For use with One Touch Verio meters. 150 strip 5 ??? blood-glucose meter (ONETOUCH VERIO SYSTEM) [facility] Use as instructed. 1 each 0 ??? calcitRIOL (ROCALTROL) 0.25 MCG capsule Take by mouth. ??? calcium acetate,phosphat bind, (PHOSLO) 667 mg capsule Take by mouth. ??? carBAMazepine (TEGRETOL) 200 mg tablet Take 200 mg by mouth at bedtime. ??? carBAMazepine ER (TEGRETOL XR) 200 MG 12 hr tablet Take by mouth. ??? cephALEXin (KEFLEX) 500 MG capsule TAKE ONE CAPSULE BY MOUTH TWICE DAILY FOR SEVEN DAYS ??? cyclobenzaprine (FLEXERIL) 10 MG tablet TAKE ONE TABLET BY MOUTH EVERY EIGHT HOURS NEEDED FOR MUSCLE SPASMS ??? cycloSPORINE modified (NEORAL) 25 MG capsule Take 2 capsules (50 mg total) by mouth 2 times a day. 120 capsule 5 ??? cycloSPORINE, SANDIMMUNE, 25 MG capsule Take by mouth. ??? doxazosin (CARDURA) 8 MG tablet 8 mg daily. ??? doxycycline (MONODOX) 100 MG capsule Take 100 mg by mouth 2 times a day. ??? entecavir (BARACLUDE) 0.5 MG tablet Take 1 tablet (0.5 mg total) by mouth every 7 days. 4 tablet 5 ??? ergocalciferol (VITAMIN D2) 50,000 unit capsule Take 50,000 Units by mouth. Twice a week ??? famotidine (PEPCID) 20 MG tablet Take 20 mg by mouth daily. ??? fluconazole (DIFLUCAN) 100 MG tablet Take 100 mg by mouth daily. ??? fluticasone propionate (FLONASE) 50 mcg/actuation nasal spray Use into each nostril. ??? gabapentin (NEURONTIN) 100 MG capsule Take 4 capsules (400 mg total) by mouth daily. 180 capsule 0 ??? gabapentin (NEURONTIN) 100 MG capsule Take by mouth. ??? gabapentin (NEURONTIN) 800 MG tablet Take by mouth. ? ? gabapentin (NEURONTIN) 800 MG tablet take 1&1/2 TABLETS BY MOUTH THREE TIMES DAILY ??? hydrALAZINE (APRESOLINE) 100 MG tablet TAKE ONE TABLET THREE TIMES DAILY ??? hydrALAZINE (APRESOLINE) 50 MG tablet Take 100 mg by mouth 3 times a day. ??? hydrALAZINE (APRESOLINE) 50 MG tablet Take by mouth. ??? hydrocortisone 2.5 % cream Apply to face daily as directed ??? hydrOXYzine pamoate (VISTARIL) 25 MG capsule take 1 Capsule by mouth daily 1 hour prior to dialysis ??? insulin NPH and regular human (HUMULIN 70/30 U-100 KWIKPEN) 100 unit/mL (70- 30) InPn Inject subcutaneously. ??? insulin NPH isoph U-100 human (HUMULIN N NPH INSULIN KWIKPEN) 100 unit/mL (3 mL) InPn Inject subcutaneously 20 units in the AM and 8 units in the PM. (Patient taking differently: Inject subcutaneously 48 units in the AM and 24 units in the PM as needed ) 15 mL 5 ??? JANUVIA 100 mg tablet ??? ketoconazole (NIZORAL) 2 % shampoo Wash hairline and face 2-3 times weekly ??? lancets (ONETOUCH DELICA LANCETS) 33 gauge Misc Use 1 strip as directed 4 times daily before meals and at bedtime. 150 each 5 ??? lidocaine-prilocaine (EMLA) cream Apply topically. ??? linezolid (ZYVOX) 600 mg tablet Take 600 mg by mouth 2 times a day. ??? lisinopriL (PRINIVIL) 40 MG tablet Take 40 mg by mouth daily. ??? methocarbamoL (ROBAXIN) 500 MG tablet TAKE ONE TABLET EVERY EIGHT HOURS NEEDED FOR MUSCLE SPASMS ??? metoprolol succinate (TOPROL-XL) 100 MG 24 hr tablet Take 100 mg by mouth at bedtime. ??? metoprolol tartrate (LOPRESSOR) 100 MG tablet Take by mouth. ??? metoprolol tartrate (LOPRESSOR) 50 MG tablet Take by mouth. ??? mycophenolate (CELLCEPT) 250 mg capsule Take 1 capsule (250 mg total) by mouth 2 times a day. 60 capsule 11 ??? NIFEdipine (PROCARDIA-XL) 90 MG (OSM) 24 hr tablet Take 90 mg by mouth 2 times a day. ??? ondansetron (ZOFRAN) 4 MG tablet Take by mouth. ??? ondansetron (ZOFRAN-ODT) 4 MG disintegrating tablet every 8 hours as needed. ??? oxyCODONE (ROXICODONE) 5 MG immediate release tablet Take 5 mg by mouth every 6 hours as needed. ??? oxyCODONE-acetaminophen (PERCOCET) 10-325 mg per tablet TAKE ONE TABLET BY MOUTH THREE TIMES DAILY NEEDED FOR SEVERE pain ??? pen needle, diabetic 32 gauge x Ndle Use as directed to inject insulin 4 times daily. 150each 5 ??? polyethylene glycol (MIRALAX) 17 gram packet Take 17 g by mouth 2 times a day as needed. 100 packet 0 ??? proMETHazine (PHENERGAN) 25 MG tablet take 1 tablet by ORAL route every 6 hours as needed ??? valACYclovir (VALTREX) 1000 MG tablet Take 1,000 mg by mouth 3 times a day. ??? vancomycin (VANCOCIN) 750 mg SolR Intravenous. Scheduled Meds: ??? carBAMazepine 200 mg Oral Nightly (2100) ??? cycloSPORINE modified 75 mg Oral BID ??? entecavir 0.5 mg Oral Q7 Days ??? epoetin giancarlo-epbx 6,000 Units Subcutaneous Once per day on Mon ??? fluconazole 200 mg Oral Daily 0900 ??? gabapentin 200 mg Oral Nightly (2099) ??? heparin 5,000 Units Subcutaneous Q8H ??? hydrALAZINE 100 mg Oral 3 times per day ??? insulin glargine 5 Units Subcutaneous Nightly (2099) ??? insulin lispro 0-5 Units Subcutaneous TID AC ??? melatonin 6 mg Oral Nightly (2099) ??? methocarbamoL 500 mg Oral QID ??? metoprolol tartrate 25 mg Oral BID ??? NIFEdipine 90 mg Oral 2 times per day ??? pantoprazole 40 mg Oral DAILY 06 ??? QUEtiapine 12.5 mg Oral Nightly (2099) ??? terazosin 10 mg Oral Nightly (2099) ??? vancomycin 1,000 mg Intravenous Once ??? [START ON 06/12/2020] vancomycin 1,000 mg Intravenous Once per day on Mon Continuous Infusions: PRN Meds:.acetaminophen, bisacodyL, dextrose 50 % in water (D50W) OR dextrose 50 % in water (D50W), glucose, lidocaine (PF) 2% (20 mg/mL), LORazepam, oxyCODONE OR oxyCODONE, polyethylene glycol, proMETHazine, senna-docusate, sodium chloride 0.9 % VITALS Temp: [98.1 ??F (36.7 ??C)-98.6 ??F (37 ??C)] 98.6 ??F (37 ??C) Heart Rate: [92-109] 102 Resp: [18] 18 BP: (139-160)/(72-84) 147/84 FiO2: [21 %] 21 % Wt Readings from Last 3 Encounters: 06/08/20 (!) 245 lb 7 oz (111.3 kg) 06/07/20 (!) 251 lb 15.8 oz (114.3 kg) 03/16/20 (!) 278 lb (126.1 kg) No intake/output data recorded. Intake/Output Summary (Last 24 hours) at 06/10/2020 0855 Last data filed at 06/10/2020 0500 Gross per 24 hour Intake 840 ml Output 100 ml Net 740 ml PHYSICAL EXAM Constitutional : Awake, alert, appropriate, no acute distress, well developed, nourished, hydrated, Comfortable lying flat Skin : No rash, lesions, warm to touch Head : atraumatic, normocephalic. External ears and nose normal Eyes : no injection, icterus, clinical anaemia, Pupils equal, EOM intact grossly, No nystagmus. ENT : external ears, nose & tongue normal, Neck : supple, No Thy mass, tracheal shift, elevated JVD RESP : No respiratory distress, Bilat clear to auscultation, BS vesicular, CV : HR regular, HS S1 S2 LE edema none ABD/GIT : Large scars from OLTx surgery soft, non-tender, BS normal. Neuro : CN 3-12 grossly intact, UE & LE power and sensation grossly intact, MSK : No wasting, joint deformity Psych : mood and affect appropriate, normal interaction, orientation, eye contact. DATA : Recent Labs 06/08/20 0720 06/09/20 0605 WBC 5.3 4.4 HGB 7.2* 7.5* HCT 22.2* 22.9* PLT 246 216 Recent Labs 06/08/20 0720 06/09/20 0605 NA 138 139 K 4.5 4.2 CL 99 99 CO2 26 30 BUN 49* 22 CREATININE 11.23* 6.03* GLUCOSE 135* 156* Lab Results Component Value Date PTH 164.0 (H) 01/14/2019 CALCIUM 8.8 06/09/2020 PHOS 4.5 06/09/2020 Lab Results Component Value Date [id number] 15.8 (L) 01/14/2019 Lab Results Component Value Date IRON 19 (L) 06/02/2020 TIBC 172 (L) 06/02/2020 FERRITIN 1,132.0 (H) 06/02/2020 TESTS : In addition to the above, I have reviewed an extensive amount of complex data. Morbidity / complication risk is felt to be : moderate / high. SUMMARY : Aiden Stauffer JrUbaldo is a 45 y.o.male OLTx Hep B + Tx then ESRD on IHD home HD in [place] Admitted with epidural abscess s/p surgery and on IV ABx Assessment: Renal Function ESRD on IHD - home hemo Electrolytes Controlled with HD Acid/Base Controlled with HD Vol. Status Pt believes he is below his EDWt and wants to Uf approx 1L today BP Controlled on meds as listed Anemia On MINERVA - no IV Fe in setting of infection and IV ABx SHPT Ca Pi controlled no binders Other BepB + status - per ID needs dedicated machine protocol per Machine care etc Does not need to be isolated in the unit but needs ideally 2 empty bed spaces and others should be immune status. End of day end of loop etc. Discussed with Dr Zavala. Plan: Orders as entered. HepB status as noted & discussed Abx per ID order. Avril Calderon 06/10/2020 * Nishi Mendoza RN - 06/09/2020 3:18 PM EDTAssociated Order(s): IP CONSULT TO WOUND CARE NURSE Images from the original note were not included. [facility] Wound Care Admission Assessment This report contains protected health information by law. If received in error please call: Date of Visit: 06/09/2020 PATIENT NAME: Aiden Stauffer Jr. is a 45 y.o. male Most Recent Admission Date: 06/08/2020 : 1975 HISTORY OF PRESENT ILLNESS: Portion of H/P copied from D/C summary, VIMAL Aiden Stauffer Jr.??is a 45 y.o.??male??with a history of ESRD on HD at home (MTuThFSa), SAL cirrhosis s/p liver transplant 2018,??pulmonary HTN, JC, DM2, HTN, obesity??presenting to the hospital as direct admission with complaint of subacute low back pain and weakness following spinal surgery. ?? Previous Hospitalization Note [facility] 04/28/20-05/13/20 Aiden Stafufer??is a 45 y.o.??male??with history of liver transplant 2018 secondary to SAL, ESRD on home dialysis 5 days per [...] vanco w/ HD. I have d/w Dr. Millan, his fitter hand, who accepts plan. Patient will present to HD center [facility] for vanco following his HD treatments. [...] safely discharged home from a medical standpoint. ?? Assessment and plan: Dog Or Horse Racing Official in to do admission assessment. Patient with an old 100% healed scar from liver transplant noted from mid ABD all the way to Right quad. Also noted with 100% healed back incision and puncture wound to lower back. Bilateral buttocks, feet and heels unremarkable. Pt will be a DNF for wound team. Preventative Measure: Offload pressure points and provide pressure relief. Use low air loss mattress, heels boots, and pillows to off load pressure points. Patient able to turn and reposition self. Use Sween 24 to hydrateand moisturize skin. Use moisture barrier cream to protect groin, perianal skin and buttocks from incontinence. ALLERGIES: Allergies Allergen Reactions ??? Codeine Sulfate Hyper ??? Codeine Other (See Comments) Becomes hyper PAST MEDICAL HISTORY: Past Medical History: Diagnosis Date ??? Acute [...] ??? Sleep apnea ??? Vitamin D deficiency PAST SURGICAL HISTORY: Past Surgical History: Procedure Laterality Date ??? [...] TIPS PROCEDURE 10/2016 ??? TIPS Revision 04/2017 BP 135/72 (BP Location: Right arm, Patient Position: Lying) Pulse 98 Temp 98.5 ??F (36.9 ??C) (Oral) Resp 18 Ht 5' 7 (1.702 m) Wt (!) 245 lb 7 oz (111.3 kg) Comment: had dialysis prior to arrrival SpO2 94% BMI 38.44 kg/m?? Body mass index is 38.44 kg/m??. Reviewed the Following Labs: BUN Date/Time Value Ref Range Status 06/09/2020 06:05 AM 22 7 - 25 mg/dL Final Creatinine Date/Time Value Ref Range Status 06/09/2020 06:05 AM 6.03 (H) 0.60 - 1.30 mg/dL Final 04/03/2019 02:44 PM 3.9 Final Lab Results Component Value Date WBC 4.4 06/09/2020 RBC 2.46 (L) 06/09/2020 HCT 22.9 (L) 06/09/2020 MCV 93.0 06/09/2020 MCH 30.4 06/09/2020 MCHC 32.7 06/09/2020 RDW 15.3 (H) 06/09/2020 PLT 216 06/09/2020 Lab Results Component Value Date ALBUMIN 3.1 (L) 06/09/2020 Lab Results Component Value Date PREALBUMIN 20.0 06/09/2020 (17.6-36) Lab Results Component Value Date HGBA1C 6.5 (H) 06/09/2020 No results found for: SEDRATE Lab Results Component Value Date CRP 47.0 (H) 06/08/2020 Douglas Score: Douglas Scale Score: 18 RISK FACTORS FOR SKIN BREAKDOWN: Decrease mobility Wounds: Surgical Wounds(Incisions): Incision 06/03/20 #1 Back Mid needle stick for aspiration (Active) 06/03/20 0839 Incision Number: #1 Location: Back Wound Location Orientation: Mid Wound Description (Comments): needle stick for aspiration CV Device Implanted (If applicable): Placed off unit?: Site (Wound bed) Assessment Clean;Dry;Intact;Closed wound edges;Other area completely healed. 06/09/2020 9:40 AM Magy-wound Assessment Clean;Dry;Intact 06/09/2020 9:40 AM Dressing Open to air 06/09/2020 9:40 AM Pt without pressure ulcers or wounds. WCT will not be following patient or doing weekly skin assessments. Floor nursing to notify WCT if any skin issues. Continue pressure ulcer prevention measures. Number of staff to complete wound care this visit: 1 Time spent face to face: 10 minutes Time In: 9:40 am and Time Out: 9:50 am NISHI MENDOZA 06/09/2020 * Tashi Merino - 06/09/2020 12:12 PM EDTAssociated Order(s): IP CONSULT TO CASE MANAGEMENT [facility] Care Management/Social Work Assessment Patient Information Hospital Day: 1 Inpatient/Observation: Inpatient Admit Date: 06/08/2020 Admission Diagnosis: osteomyelitis 05/28/2020 [facility] Attending provider: Jake Zavala MD PCP: Edgar Fournier MD Home Pharmacy: [facility] [address] [facility] [address] [place] [id number] [facility] [id number] [facility] [address] [facility] [address] [facility] [address] Pertinent Medications New Diabetic: No Issues related to obtaining medications: n/a Payor Information Medical Insurance Coverage: Payor: MEDICARE / Plan: MEDICARE A AND B / Product Type: Medicare / Secondary Pay[place] Functional Assessment Functional Assessment Assessment Information Obtained From:: Patient, Chart Review Current Mental Status: Awake, Oriented to Person, Oriented to Place, Oriented to Time, Oriented to Situation Activities of Daily Living: Independent Work History: Disabled Marital Status: Demographics Correct:: Yes Discharge Destination: Home Current Living Arrangements Current Living Arrangements Current Living Arrangements: Home Type of Housing: House Who do you live with?: With Family One Story or Two (check all that apply): One Story Enter the number of steps and rails to enter the residence: 5-6 Community Services Community Services Community Services at Home: Home Health Assisted Health Care Name/Phone #: [facility] [phone] Home Health Services Types Prior to Admission: PT/OT/SUPERVISOR CHAR HOUSE, Longterm Dialysis Needs: Hemodialysis HD days of week: M/T/R/F/Sa [facility] dialysis in [place]. Pt does HD at home thought. [phone] Support Systems Emergency contact: Extended Emergency Contact Information Primary Emergency Contact: Kym Stauffer Address: [address] [place] [address] Mobile Relation: Spouse Secondary Emergency Contact: Kimberly Stauffer [facility] Relation: Mother Support Systems Primary Caregiver: Self Times of available support: Total 24/7 hands on (add comment)( and adult son) Marital Status: Demographics Correct:: Yes Discharge Destination: Home Next of Kin: Kym Stauffer Next of Kin Relationship: Spouse Next of Kin Assessment Information Obtained From:: Patient, Chart Review Other Pertinent Information Advance Directives (For Healthcare) [...] and provided contact information. Anticipated Discharge Plan: TBD Anticipated Discharge Date: TBD Anticipated Transportation: TBD Patient/Family aware and taking part in the discharge plan. Patient/family educated that once post-acute care needs have been identified, a provider list applicable to the identified post-acute care needs as well as the insurance provider will be provided, and patient/family have the freedom to choose their provider(s); financial interest(s) are disclosed as appropriate. Kvng Rivera [facility] care team meeting education provided: Other (comment)(Not currently being held due to COVID restrictions) TASHI MERINO * Zoila Sanders RN - 06/09/2020 8:23 AM EDTAssociated Order(s): IP CONSULT TO PICC TEAM PICC RN NOTE: Consult to PICC team acknowledged with request for PICC line for IV Vanc continued for 6 weeks, placed by nemo PEREZ. Also noted patient is requesting IV pain medication and is a difficult stick. Epic message sent to attending this am to follow up and clarify order. Pt is ESRD on HD with AVF fistula graft left arm per notes. Also per notes plan for patient to receive his IV Vanco with HD. Also noted, patient was evaluated by IV team at - please see copy and paste of their note below: IP Consult to [facility] Consult performed by: Rose Lee RN Consult ordered by: Aby Cavazos MD Assessment/Recommendations: UG PIV #20g [address] x 4 attempts to right upper arm. Left arm with AVF and unable to stick. Pt has been without antibx for greater than 24 hours. Per patient he will need 6 weeks of antibx. Please refer to IR for renal appropriate tunneled line. When this IV fails, patient has nothing else to stick. RN updated. Appears line was pulled prior to transfer here. Following best practices when possible, efforts forvein preservation to avoid access peripherally, especially upper arm veins for HD patients in the event their current fistula/graft may fail and continued need for HD. Will await for update from MD on how to proceed, may see patient to attempt forearm/hand piv if possible, may not last manager long term care, concern for pain management and and limited access options. boat outfitting supervisor and bedside RN updated. documented in this encounter Nursing Notes * Danya Shipley RN - 06/24/2020 2:44 PM EST 1 UPRBC given during HD. Received 1GM of Vancomycin and 6000 Units of Epogen. Tolerated tx well up until last 45 minutes with c/o severe cramps. Requested to d/c tx early. Net fluid removal 2L. VSS post tx. Dr. Mccracken notified of early tx termination. LJ * Sharonda Uribe RN - 06/22/2020 2:35 PM EST Arrived for HD in bed. Pre HD weight 138.8 kg, bp 133/66, hr 97. Post HD weight 137.7 kg, bp 143/81, hr 101. Prescribed treatment time 4 hours. Net UF goal 1500 ml. C/O severe cramping in legs, UF to minimum but patient remained uncomfortable and ended treatment 20 minutes early. Pressure held needle sites x5 minutes. Hemostasis achieved. * Jack Rosado RN - 06/22/2020 8:05 AM EST Assessment complete. VS within limits for patient. Patient alert and oriented x4. Breakfast order. Dialysis scheduled for 1000 today. No s/s of distress, call light withinr each, and safety measures in place. * Marie Braden RN - 06/22/2020 4:36 AM EST Patient is currently resting, no sign of Acute distress at this time. Scheduled and PRN medication given without problem. Assessment complete. Bed wheels are locked, the bed is in the lowest position, call light is within reach. Will continue to monitor. * Marie Braden RN - 06/21/2020 4:39 AM EST Patient is currently resting in bed, no sign of acute distress at this time. Scheduled and PRN medication given without problem. Assessment complete. Patient continues to decline the bipap at night. Nasal cannula is in place. Bed wheels are locked, bed is in the lowest position, call light is within reach. Will continue to monitor. * Elroy Lawrence RN - 06/19/2020 11:40 PM EST Pt a/ox4, resp easy, call light in reach, no c/o pain, pt stated to this nurse that earlier in shift pt spoke to Dr in regard's to leaving AMA, PT STATE'S HE'S FINE AT THIS TIME, BUT IS LOOKING FOR ANOTHER FACILITY, THIS TECHNICAL SUPPORT MANAGER REPORTED CONVERSATION To Haley Jhaveri charge nurse, bed in low and locked position. Pt stated he can't do what he's body won't let him as far as PT, and that some nurse's got smart with him. * Elroy Lawrence RN - 06/19/2020 5:41 AM EST Pt had a small emesis, 12.5 mg phenergan given, call light in reach. Phenergan effective. * Elroy Lawrence RN - 06/19/2020 1:46 AM EST Phenergan given earlier for c/o nausea and effective. * Elroy Lawrence RN - 06/19/2020 1:01 AM EST Pt vss,resp easy,prn pain med given and effective, call light in reach, bed in low and locked position. * Oxana Siddiqi RN - 06/18/2020 10:27 AM EST Patient taken off unit via stretcher and ambulance to outpatient service for left arm AV fistula repair. * Oxana Siddiqi RN - 06/18/2020 8:22 AM EST Patient is alert and fully oriented, laying in bed. Call light in reach. Patient educated that he will remain NPO with only a sip of water with his morning medications. Patient is going out to have his left arm av fistula repaired at 930 am. Paperwork for transport completed. * Halima Irwin LPN - 06/17/2020 5:08 PM EST 0.4 Liters of net fluid removed. Pt tolerated well. Bp-142/82 p-106 t-97.8 r-18. Post wt:129.6 Kg. * Danya Shipley RN - 06/17/2020 1:29 PM EST Difficult cannulation of AVF today. Bruit and thrill of left arm AVF faint. Per Dr. Calderon's order set up appointment at the [facility] on 06/18/20, arrive at 10:30AM, NPO 8 hours prior. Spoke with [employer] re: appointment time and NPO requirements so that transportation arrangements could be made. . Also notified pt's nurse, Gloria. LJ * Marie Braden RN - 06/17/2020 4:35 AM EST Patient is alert and oriented X 4. Scheduled and PRN medication given without problem. Assessment complete. Patient continues to decline the use of the CPAP while asleep, nasal cannula is in place. Patient is in bed, no sign of acute distress at this time. Bed wheels are locked, bed is in the lowest position, call light is within reach. Will continue to monitor. * Gloria Abraham RN - 06/16/2020 3:56 PM EST Up to chair with juliet lift. Claims cannot work with therapy due to pain. Dr buster parks. Appears forgetful repeats same questions often. * Marie Braden RN - 06/16/2020 3:59 AM EST Patient is currently resting in bed, no sign of acute distress at this time. Scheduled and PRN medication given without problem. Assessment complete. Bed wheels are locked, the bed is in the lowest position, call light is within reach. Will continue to monitor. * Halima Irwin LPN - 06/15/2020 6:22 PM EST Pt tolerated HD tx well. 0.5 Liters of net fluid removed. Bp-100/65 p-101 r-20 t-96.4. Post wt:124.4 kg. * Sandra Casey RN - 06/15/2020 2:27 AM EST Aiden Ivelisse Stauffer Jr. alert and oriented x4. Pt able to make needs known. Pt assessment complete. Pt take meds as ordered without difficulties. Pt with c/o pain to back and right hip. Pt with relief with medication. Pt in bed with no acute distress noted call light in reach. 45 y.o. male Blood pressure 148/81, pulse 108, temperature 98.9 ??F (37.2 ??C), temperature source Oral, resp. rate 18, height 5' 7 (1.702 m), weight (!) 245 lb 7 oz (111.3 kg), SpO2 92 %. SANDRA CASEY 06/15/2020 * Kaycee Tirado RN - 06/13/2020 6:22 PM EDT NAD. A&Ox4. Pt. Continues with R hip pain, PRN pain medications are effective. N.O. for heatingpad which is also effective to decrease pain sx. Xray R hip negative.Tolerating medications with nodifficulty. Good appetite. Pleasant and cooperative with all care this shift. Denies any concerns at this time. Call light is within reach. * Kaycee Tirado RN - 06/13/2020 9:00 AM EDT Pt. Off floor for Xray R hip. C/o increase pain d/t increased movement for procedure and congested L ear . Request addt'l pain medication. Oxy 15mg x1 dose N.O. for Debrox per Dr. Zavala. Pt. Resting in bed at this time with call light within reach. * Elroy Lawrence RN - 06/13/2020 2:46 AM EDT New order for cbc in am Given per Murphy Haji due to pt had 1 unit of blood yesterday. * Elroy Lawrence RN - 06/13/2020 12:12 AM EDT Pt a/ox4,vss, prn pain med and anxiety med given earlier and effective, call light in reach, resp easy. * Halima Irwin LPN - 06/12/2020 7:28 PM EDT Pt tolerated HD tx well. 1.0 liters of net fluid removed. Bp-136/65 p-104 t-97.8 r-18. Post wt. 121.5kg. * Sherwin Heller RN - 06/12/2020 3:47 PM EDT Blood transfusion orders placed by Dr. Zavala. RN called the dialysis nurse to inform her of the transfusion orders. * Sherwin Heller RN - 06/12/2020 2:45 PM EDT Patient is being taken to dialysis. * José Manuel Vazquez RN - 06/11/2020 6:33 PM EDT Aiden Stauffer Jr. alert and oriented x4. Pt able to make needs known. Assessment complete. Taking meds as ordered without difficulties. Verbalized no c/o pain. Skin issues assessed and skin intact. VS stable. Pt in bed with no acute distress noted call light in reach. Will continue to monitor. 45 y.o. male José Manuel Vazquez 06/11/2020 * Karli Corcoran RN - 06/08/2020 7:07 PM EDT Patient arrived via stretcher from [facility] by Mobile care. Patient transferred to bed. Call light in place. VS taken per flow sheet. No Needs voiced at this time. documented in this encounter Miscellaneous Notes * Care Coordination - Valeri Galeano RN - 06/25/2020 2:02 PM EST [facility] Case Management/Social Work Department Progress Note Patient Information Hospital day: 17 Inpatient/Observation: Inpatient Level of Care: ltac Admit date: 06/08/2020 Admission diagnosis: osteomyelitis 05/28/2020 [facility] PMH: has a past medical history of Acute pancreatitis, Anemia, Ascites, Diabetes mellitus (CMS Dx),Dialysis patient (CMS Dx), Esophageal varices with bleeding (CMS Dx), GERD (gastroesophageal refluxdisease), Hearing loss, Hepatic encephalopathy (CMS Dx), Hypertension, Liver cirrhosis secondary toNASH (CMS Dx), Pulmonary HTN (CMS Dx), Sleep apnea, and Vitamin D deficiency. PCP: Edgar Fournier MD Home Pharmacy: [facility] [address] [facility] [address] [facility] [address] [facility] [address] [facility] [address] [facility] [address] [facility] [id number] Medical Insurance Coverage: Payor: MEDICARE / Plan: MEDICARE A AND B / Product Type: Medicare / Other Pertinent Information Received a call on the [facility] Care Management on-call phone from Nurse (Nadya Garvin) with [facility] PH#[phone]. She stated that after completing the in home assessment of this patient today, she advised the patient that they could not admit him into their HHC services and they instructed him to goto the Emergency Department for continued care and administration of his IV Antibiotics. She statesthat the patient verbalized understanding and agreement with same. I immediately contacted my Swimming Pool Maintenance Supervisor, Arjun Meyer to advise of situation and determine if any other actions needed to be taken. No other actions needed at this time. Also advised Dr Zavala of same. Patient had DC'd yesterday 06/26/20 from [facility] against medical advise. VALERI GALEANO RN * Plan of Care - Maru Bianchi RN - 06/25/2020 9:48 AM EST Problem: Knowledge deficit related to self-management of chronic disease Goal: Patient/family/caregiver demonstrates understanding of disease process, treatment plan, medications, and discharge instructions Outcome: Not Progressing Problem: Potential for imbalanced nutrition related to metabolic effect of diabetes Goal: Patient's nutritional needs will be met Outcome: Not Progressing Problem: Risk for ineffective therapeutic regimen management related to insulin pump Goal: Blood glucose is within target range Outcome: Not Progressing * Care Coordination - Tashi Merino - 06/25/2020 9:34 AM EST [facility] Case Management/Social Work Department Progress Note Patient Information Hospital day: 17 Inpatient/Observation: Inpatient Level of Care: LTAC Admit date: 06/08/2020 Admission diagnosis: osteomyelitis 05/28/2020 [facility] PMH: has a past medical history of Acute pancreatitis, Anemia, Ascites, Diabetes mellitus (CMS Dx),Dialysis patient (CMS Dx), Esophageal varices with bleeding (CMS Dx), GERD (gastroesophageal refluxdisease), Hearing loss, Hepatic encephalopathy (CMS Dx), Hypertension, Liver cirrhosis secondary toNASH (CMS Dx), Pulmonary HTN (CMS Dx), Sleep apnea, and Vitamin D deficiency. PCP: Edgar Fournier MD Home Pharmacy: [facility] [address] [facility] [address] [facility] [address] [facility] [address] [place] [id number] [facility] [address] [facility] [id number] Medical Insurance Coverage: Payor: MEDICARE / Plan: MEDICARE A AND B / Product Type: Medicare / Other Pertinent Information SW spoke with [facility] [phone]. Regarding pt's discharge plan. SW to [facility] at [phone]. No additional needs reported at this time. Discharge Plan Anticipated discharge plan: Home with home health care Anticipated discharge date: 06/25/2020 CM/SW will continue to follow and remain available for discharge planning needs. TASHI MERINO * Plan of Care - Maru Benedict RN - 06/24/2020 10:47 PM EST Problem: Glucose Imbalance related to diabetes disease process Goal: Clinical indication of glucose balance is achieved Outcome: Progressing Problem: Fall Prevention Goal: Patient will remain [...] (excluding SNF),and non-skid footwear provided. Outcome: Progressing * Care Coordination - Tashi Merino - 06/24/2020 3:49 PM EST [facility] Case Management/Social Work Department Progress Note Patient Information Hospital day: 16 Inpatient/Observation: Inpatient Level of Care: LTAC Admit date: 06/08/2020 Admission diagnosis: osteomyelitis 05/28/2020 [facility] PMH: has a past medical history of Acute pancreatitis, Anemia, Ascites, Diabetes mellitus (CMS Dx),Dialysis patient (CMS Dx), Esophageal varices with bleeding (CMS Dx), GERD (gastroesophageal refluxdisease), Hearing loss, Hepatic encephalopathy (CMS Dx), Hypertension, Liver cirrhosis secondary toNASH (CMS Dx), Pulmonary HTN (CMS Dx), Sleep apnea, and Vitamin D deficiency. PCP: Edgar Fournier MD Home Pharmacy: [facility] [address] [facility] [address] [facility] - [place], [place] - [address] [facility] [address] [facility] [address] [facility] [address] Medical Insurance Coverage: Payor: MEDICARE / Plan: MEDICARE A AND B / Product Type: Medicare / Other Pertinent Information SW received call from patient regarding transportation home, per patient he is interested in ambulance transport. SW educated pt private pay for ambulance transport. SW called [employer] and received a quote for $700 to transport pt home. SW informed patient of the above information. Per pt, he is still planning to discharge tomorrow but reports concerns about sitting in a car to travel home. SW educated patient on medical recommendation to stay at [facility] to continue therapy and medical management. Pt insisted that he needed to go home tomorrow. At this time, HHC, infusion, and DME is arranged for pt to discharge home. Discharge Plan Anticipated discharge plan: Home with home health care Anticipated discharge date: 06/25/2020 CM/SW will continue to follow and remain available for discharge planning needs. TASHI MERINO * Care Coordination - Tashi Merino - 06/24/2020 9:39 AM EST [facility] Case Management/Social Work Department Progress Note Patient Information Hospital day: 16 Inpatient/Observation: Inpatient Level of Care: LTAC Admit date: 06/08/2020 Admission diagnosis: osteomyelitis 05/28/2020 [facility] PMH: has a past medical history of Acute pancreatitis, Anemia, Ascites, Diabetes mellitus (CMS Dx),Dialysis patient (CMS Dx), Esophageal varices with bleeding (CMS Dx), GERD (gastroesophageal refluxdisease), Hearing loss, Hepatic encephalopathy (CMS Dx), Hypertension, Liver cirrhosis secondary toNASH (CMS Dx), Pulmonary HTN (CMS Dx), Sleep apnea, and Vitamin D deficiency. PCP: Edgar Fournier MD Home Pharmacy: [facility] [address] [facility] [address] [facility] - [place], [place] - [address] [facility] [address] [facility] [address] [facility] [address] Medical Insurance Coverage: Payor: MEDICARE / Plan: MEDICARE A AND B / Product Type: Medicare / Other Pertinent Information SW spoke with [facility] [phone] via phone regarding IV Vancomycin regime. Per [facility], they are able to accept and are prepared for patient to discharge home tomorrow. SW to fax d/c summary to [facility] at [phone] when available. SW was made aware that recommendation is for pt to have a bedside commode at discharge. Pt is agreeable to recommendation. SW sent referral for bedside commode. No additional needs reported at this time. Discharge Plan Anticipated discharge plan: Home with home healthcare Anticipated discharge date: 06/25/2020 CM/SW will continue to follow and remain available for discharge planning needs. TASHI MERINO * Continuation of Care - Jake Zavala MD - 06/24/2020 9:35 AM EST Images from the original note were not included. REFERRAL FOR HOME HEALTH SERVICES FORM Patient name: Aiden Stauffer Jr. Patient : 1975 Age: 45 y.o. Gender: male SSN: [id number] Address: [facility] [address] Phone number: [phone] (home) Patient emergency contact: Extended Emergency Contact Information Primary Emergency Contact: Kym Stauffer Address: [place] [address] [facility] Relation: Spouse Secondary Emergency Contact: Kimberly Stauffer [facility] Relation: Mother Date of admission: 06/08/2020 Date of discharge: 06/25/2020 Attending provider: Jake Zavala MD Primary care physician: Edgar Fournier MD Code status: Full Code Allergies: Allergies Allergen Reactions ??? Codeine Sulfate Hyper ??? Codeine Other (See Comments) Becomes hyper Insurance Information Insurance Information MEDICARE/MEDICARE A AND B Phone: Subscriber: Aiden Stauffer Jr. Subscriber#: [id number] Group#: Precert#: [place] Phone: Subscriber: Aiden Stauffer Jr. Subscriber#: [id number] Group#: Precert#: Diagnoses Present on Admission Primary Diagnosis: Osteomyelitis (CMS Dx) Discharge Diagnosis : Active Hospital Problems Diagnosis Date Noted ??? Osteomyelitis (CMS Dx) [M86.9] 05/28/2020 ??? Hepatitis B carrier (CMS Dx) [B18.1] 06/14/2020 ??? Right hip pain [M25.551] 06/13/2020 ??? Anxiety [F41.9] 06/09/2020 ??? Obstructive sleep apnea [G47.33] 06/08/2020 ??? Essential (primary) hypertension [I10] 11/12/2019 ??? Type 2 diabetes mellitus with diabetic chronic kidney disease (CMS Dx) [E11.22] 11/12/2019 ??? Anemia, unspecified [D64.9] 11/12/2019 ??? Prophylaxis for cytomegalovirus [B25.9] 07/29/2019 ??? ESRD (end stage renal disease) (CMS Dx) [N18.6] 09/13/2018 ??? 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 Dialysis AV fistula malfunction (CMS Dx) [T82.590A] 06/18/2020 06/22/2020 ??? Esophageal candidiasis (CMS Dx) [B37.81] 06/08/2020 06/22/2020 ??? 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] 04/28/2020 06/09/2020 Prognosis: good Rehabilitation potential: fair Diet Diet Orders Diet renal starting at 11/05 1442 As listed above Services Required Longterm Home Health Aide Physical Therapy: Plan Treatment/Interventions: LE strengthening/ROM, Endurance training, Patient/family training, Equipment eval/education, Gait training, Stair Training, Neuromuscular Reeducation, Therapeutic Activity, Therapeutic Exercise, Wheelchair Mobility PT Frequency: minimum 3x/week Recommendation Recommendation: Short-term skilled PT Equipment Recommended: Defer until further assessment Occupational Therapy: Plan Treatment Interventions: ADL retraining, UE strengthening/ROM, Compensatory technique education, Lower Extremity Intervention, Equipment eval/education, Activity Tolerance training, Therapeutic Activity, Neuro muscular reeducation, Energy Conservation, Functional transfer training, Excercise OT Frequency: minimum 3x/week Recommendation Recommendation: Short-term skilled OT Equipment Recommendations: Bedside commode Weight bearing status: full Needs 24 hour supervision due to cognitive impairment: No Discharge Medications Medications: Current Discharge Medication List START taking these medications Details melatonin 3 mg Tab Take 2 tablets (6 mg total) by mouth at bedtime. Qty: 30 tablet, Refills: 0 pantoprazole (PROTONIX) 40 MG tablet Take 1 tablet (40 mg total) by mouth daily. Qty: 30 tablet, Refills: 0 QUEtiapine (SEROQUEL) 25 MG tablet Take 0.5 tablets (12.5 mg total) by mouth at bedtime. Qty: 15 tablet, Refills: 0 vancomycin (VANCOCIN) IVPB 1000 mg with dialysis. CONTINUE these medications which have CHANGED Details ALPRAZolam (XANAX) 0.5 MG tablet Take 1 tablet (0.5 mg total) by mouth 3 times a day as needed for up to 5 days. Qty: 15 tablet, Refills: 0 Associated Diagnoses: Anxiety cycloSPORINE modified (NEORAL) 100 MG capsule Take 1 capsule (100 mg total) by mouth 2 times a day. Qty: 60 capsule, Refills: 0 gabapentin (NEURONTIN) 100 MG capsule Take [...] Refills: 5 Associated Diagnoses: S/P liver transplant ([facility] Dx); Hyperglycemia methocarbamoL (ROBAXIN) 500 MG tablet Take 1 tablet (500 mg total) by mouth 4 times daily before meals and at bedtime. Qty: 120 tablet, Refills: 0 metoprolol tartrate (LOPRESSOR) 25 MG tablet Take 1 tablet (25 mg total) by mouth 2 times a day. Qty: 60 tablet, Refills: 0 oxyCODONE (ROXICODONE) 5 MG immediate release tablet Take 1 tablet (5 mg total) by mouth every 4 hours as needed for up to 5 days. Qty: 20 tablet, Refills: 0 Associated Diagnoses: Other osteonecrosis, left femur (CMS Dx) polyethylene glycol (MIRALAX) 17 gram packet Take 17 g by mouth daily as needed (mild constipation (no BM for 24 hrs)). Qty: 14 packet, Refills: 0 CONTINUE these medications which have NOT CHANGED Details carBAMazepine (TEGRETOL) 200 mg tablet Take 200 mg by mouth at bedtime. doxazosin (CARDURA) 8 MG tablet 8 mg at bedtime. famotidine (PEPCID) 20 MG tablet Take 20 mg by mouth daily. NIFEdipine (PROCARDIA-XL) 90 MG (OSM) 24 hr tablet Take 90 mg by mouth 2 times a day. aspirin 81 MG chewable tablet Chew 1 tablet (81 mg total) by mouth daily with breakfast. Qty: 30 tablet, Refills: 5 [facility] Use to test blood sugar up to 4 times a day. Diagnosis for use: E 9.65.For use with One Touch Verio meters. Qty: 150 strip, Refills: 5 blood-glucose meter (ONETOUCH VERIO SYSTEM) [facility] Use as instructed. Qty: 1 each, Refills: 0 entecavir (BARACLUDE) 0.5 MG tablet Take 1 tablet (0.5 mg total) by mouth every 7 days. Qty: 4 tablet, Refills: 5 ergocalciferol (VITAMIN D2) 50,000 unit capsule Take 50,000 Units by mouth every Monday, ,and Monday. Twice a week fluticasone propionate (FLONASE) 50 mcg/actuation nasal spray Use into each nostril. lancets (ONETOUCH DELICA LANCETS) 33 gauge Misc Use 1 strip as directed 4 times daily before meals and at bedtime. Qty: 150 each, Refills: 5 lidocaine-prilocaine (EMLA) cream Apply topically. ondansetron (ZOFRAN-ODT) 4 MG disintegrating tablet every 8 hours as needed. pen needle, diabetic 32 gauge x 5/32 Ndle Use as directed to inject insulin 4 times daily. Qty: 150 each, Refills: 5 STOP taking these medications cyclobenzaprine (FLEXERIL) 10 MG tablet Comments: Reason for Stopping: lisinopriL (PRINIVIL) 40 MG tablet Comments: Reason for Stopping: vancomycin (VANCOCIN) 750 mg SolR Comments: Reason for Stopping: Discharge Specific Orders Discharge specific orders: None required Isolation Patient Isolation Status None to display Vitals Patient Vitals for the past 4 hrs: Pulse Resp SpO2 06/25/20 0838 100 18 97 % Equipment/Supplies 3 in 1 Bedside Commode No current labs Ordering Physician: Jake Zavala MD NPI # [id number] Physician Certification Further, I certify that my clinical findings support that this patient is homebound (i.e. absences from home require considerable and taxing effort and are for medical reasons or hoahaoism services or infrequently or short duration when for other reasons) due to decrease mobility it would be a taxing effort to receive outpatient services. My signature below is to certify that this patient is under my care and that I, or nurse practitioner, or a physician greenhouse assistant working with me, had a [id number] encounter with this is patient on: 06/25/2020 Follow-up Appointments and Post Hospital Discharge Physician Name Future Appointments Date Time Provider Department Center 07/01/2020 2:30 PM Ravi Biswas MD [facility] Edgar Fournier MD [address] [place] [address] [place] [address] Go on 07/01/2020 For post hopsital discharge follow-up on 07/01/2020 at 11am. Please called Dr. Fournier's office directly at [phone] if you need to reschedule. Discharging Physician Signature and Credentials Discharging Physician: Electronically signed by Jake Zavala 06/25/2020, 10:12 AM Physician to follow up Information PCP: Edgar Fournier MD PCP address: [address] [place] [address] Tosha Morelos [facility] [address] PCP phone number: [phone] PCP fax number: None If PCP is not following patient, type physician contact information here: Patient will be followed by PCP Football Coach and Credentials Provider/Company Name and Contact Number: [facility] at Discharge Community Services at Home post discharge: Home Health Care, DME, Infusion Home Health Care Name/Phone # post discharge: [facility] [phone] Home Health Services Types at Discharge: PT/OT/SUPERVISOR CHAR HOUSE, IV Therapy/ABX, Home Health Aide, Longterm Infusion Company Name/Phone # post discharge: [facility] [phone] DME Needs post discharge: [facility] DME Name/Phone # post discharge: [place] [phone] Football Coach Name and Telephone Number: Tashi Merino INFRASTRUCTURE SOLUTIONS ARCHITECT, [facility] [phone] Tashi GARCIA, [facility] Care Management [phone] * Plan of Care - Barbara Jay RN - 06/24/2020 8:18 AM EST Patient educated on plan of care, safety/fall precaution. Patient verbalized understanding and planof care continue. * Plan of Care - Britney Wood RN - 06/24/2020 6:21 AM EST Problem: Fall Prevention Goal: Patient will remain [...] (excluding SNF),and non-skid footwear provided. Outcome: Progressing Bed in low position. Wheels locked. Call light in reach. * Care Coordination - Tashi Merino - 06/23/2020 2:55 PM EST [facility] Case Management/Social Work Department Progress Note Patient Information Hospital day: 15 Inpatient/Observation: Inpatient Level of Care: LTAC Admit date: 06/08/2020 Admission diagnosis: osteomyelitis 05/28/2020 [facility] PMH: has a past medical history of Acute pancreatitis, Anemia, Ascites, Diabetes mellitus (CMS Dx),Dialysis patient (CMS Dx), Esophageal varices with bleeding (CMS Dx), GERD (gastroesophageal refluxdisease), Hearing loss, Hepatic encephalopathy (CMS Dx), Hypertension, Liver cirrhosis secondary toNASH (CMS Dx), Pulmonary HTN ([facility] Dx), Sleep apnea, and Vitamin D deficiency. PCP: Edgar Fournier MD Home Pharmacy: [facility] [address] [facility] [address] [facility] [address] [facility] [address] [facility] [phone] [facility] [address] [facility] [address] [facility] [id number] Medical Insurance Coverage: Payor: MEDICARE / Plan: MEDICARE A AND B / Product Type: Medicare / Other Pertinent Information SW was made aware that pt requested to speak with this keno writer regarding discharge plans. LEODAN is in the process of arranging for IV abx at home with [facility] [phone]. At this time, [facility] has not confirmed they are able to provide IV abx, per Kati at [facility], she needs to review it with her mitigation supervisor. SW updated pt of the above information. During this interaction, pt shared that he has outstanding bills with [facility]. Pt provided pt with [facility] billing information and phone number so that they can contact the billing department. Discharge Plan Anticipated discharge plan: Home with home health care Anticipated discharge date: 06/25/2020 CM/SW will continue to follow and remain available for discharge planning needs. TASHI MERINO * Plan of Care - Barbara Jay RN - 06/23/2020 12:26 PM EST Plan of care education provided to patient, verbalized understanding. Plan of care continue. * Plan of Care - Britney Wood RN - 06/23/2020 1:57 AM EST Problem: Fall Prevention Goal: Patient will remain [...] (excluding SNF),and non-skid footwear provided. Outcome: Progressing Bed in low position. Wheels locked. Call light in reach. * Care Coordination - Tashi Merino - 06/22/2020 11:24 AM EST [facility] Sizer Machine/Social Work Discharge Needs Assessment Aiden Ivelisse Stauffer Jr. [id number] 45 y.o. male White or osteomyelitis 05/28/2020 [facility] Treatment Preferences Treatment Preferences: Provider Preference Post-Discharge Goals Patient's Post-Discharge goals: To return home with family Discharge Needs Assessment Patient list was not provided to patient for the following post acute needs as pt voiced preferenceto remain with previous provider: HHC: Yes DME: No IPR: No SNF: No Tashi GARCIA, CLERK OF SUPERIOR COURT Care Management [phone] * Care Coordination - Tashi Merino - 06/22/2020 10:42 AM EST [facility] Case Management/Social Work Department Progress Note Patient Information Hospital day: 14 Inpatient/Observation: Inpatient Level of Care: LTAC Admit date: 06/08/2020 Admission diagnosis: osteomyelitis 05/28/2020 [facility] PMH: has a past medical history of Acute pancreatitis, Anemia, Ascites, Diabetes mellitus (CMS Dx),Dialysis patient (CMS Dx), Esophageal varices with bleeding (CMS Dx), GERD (gastroesophageal refluxdisease), Hearing loss, Hepatic encephalopathy (CMS Dx), Hypertension, Liver cirrhosis secondary toNASH (CMS Dx), Pulmonary HTN (CMS Dx), Sleep apnea, and Vitamin D deficiency. PCP: Edgar Fournier MD Home Pharmacy: [facility] [address] [facility] [address] [facility] - [place], [place] - [address] [facility] [phone] [facility] [address] [facility] [id number] Medical Insurance Coverage: Payor: MEDICARE / Plan: MEDICARE A AND B / Product Type: Medicare / Other Pertinent Information SW was made aware that pt wants to discharge home as soon as possible. SW and Therapy Packaging Designer spoke with pt at bedside regarding discharge home. SW aware that at this time pt is not safe to discharge home and home discharge is not recommended. SW and Therapy Packaging Designer inquired about pt's support at home. Per pt, he lives with his , his son, and his son's krystale. He additionally shares thathis does not work and his able to help him 24/7 and his son can help him during the day. Pt states that he has a wheelchair, walker, and bed villanueva at home and plans to use those. Pt denied any additional equipment at this time. SW and Therapy Packaging Designer educated pt regarding medical recommendation to remain at [facility] for continued therapy and medical management as well as safety at home. Pt reports a plan to have pick him up then to call local emergency services to help get him from the car into his house, as he has 5 stairs to get in the door. At this time, pt's is scheduled to come for family training tomorrow 06/23 at 2pm. LEODAN aware that pt previously had [facility] [phone] and wishes to continue services with them at home. SW sent referral to [facility] via fax [phone]. SW is also aware that pt will need continued IV abx. SW sent referral to [facility] [phone] via fax [phone]. Pt hashome HD set up through [facility] [phone]. Discharge Plan Anticipated discharge plan: Home with home health care. Anticipated discharge date: 06/25/2020 CM/SW will continue to follow and remain available for discharge planning needs. TASHI MERINO * Plan of Care - Irasema Mcguire RD - 06/22/2020 10:38 AM EST Problem: Increased Nutrient Needs (NI-5.1) Description: Related To: ESRD As Evidenced By: increased demands of nutrients needed Goal: Food and/or nutrient delivery Description: Weight goal +/- 10-15# Tolerate diet Renal labs within acceptable range BS less than 200 mg/dl to WNL. Outcome: Progressing Weekly wt 306#, question accuracy/gain noted. PO intake good, tolerating renal diet. Phos elevated, K+ wnl, Na+ low. FSBS acceptable. * Plan of Care - Jack Rosado RN - 06/22/2020 8:03 AM EST Problem: Fall Prevention Goal: Patient will remain [...] (excluding SNF),and non-skid footwear provided. Outcome: Progressing Patient has remained free of falls. Bed rails up x3, bed in lowest position, alarms on, toileted q2h, and fall risk sign posted * Plan of Care - Marie Braden RN - 06/22/2020 2:26 AM EST Problem: Fall Prevention Goal: Patient will remain [...] (excluding SNF),and non-skid footwear provided. Outcome: Progressing * Plan of Care - Jessica Dennis RN - 06/21/2020 9:58 AM EST Patient assessed QS and PRN for fall risk, VS monitored, neuro status, LOC, and orientation. Room kept uncluttered, adequate lighting, call light maintained in easy reach. Bed maintained in lowest position, SR up per policy, non-skid footwear provided. * Plan of Care - Marie Braden RN - 06/21/2020 2:40 AM EST Problem: Fall Prevention Goal: Patient will remain [...] (excluding SNF),and non-skid footwear provided. Outcome: Progressing Patient is currently in bed, wheels locked, bed is in the lowest position, call light is within reach. * Plan of Care - Jessica Dennis RN - 06/20/2020 10:34 AM EST Patient assessed QS and PRN for fall risk, VS monitored, neuro status, LOC, and orientation. Room kept uncluttered, adequate lighting, call light maintained in easy reach. Bed maintained in lowest position, SR up per policy, non-skid footwear provided. * Plan of Care - Elroy Lawrence RN - 06/19/2020 11:39 PM EST Call light in reach, bed in low and locked position, SR'S up x2. * Plan of Care - Deisy Easley CM - 06/19/2020 1:42 PM EST Problem: Discharge Planning Goal: Patient's discharge needs are met Collaborate with interdisciplinary team and initiate plans and interventions as needed. Outcome: Progressing Comments: IDC rounds were not completed at bedside in an effort to limit non- essential gathering atthe bedside during the covid pandemic Discharge Barriers: no accepting facility due to high cost of patient's medications DCP: SNF Patient/family encouraged to call with any questions or concerns regarding plan of care, advanced directives, discharge planning needs or if uncertain who to contact for medical concerns. CM/SW will continue to follow and remain available for continued discharge planning. * Plan of Care - Barbara Jay RN - 06/19/2020 8:00 AM EST Patient educated on plan of care and patient verbalized understanding. * Plan of Care - Elroy Lawrence RN - 06/19/2020 12:59 AM EST Call light in reach, bed in low and locked position. * Plan of Care - Oxana Siddiqi RN - 06/18/2020 10:25 AM EST Problem: Knowledge deficit related to self-management of chronic disease Goal: Patient/family/caregiver demonstrates understanding of disease process, treatment plan, medications, and discharge instructions Outcome: Progressing Problem: Potential for imbalanced nutrition related to metabolic effect of diabetes Goal: Patient's nutritional needs will be met Outcome: Progressing Problem: Acute Pain Description: Patient's pain progressing toward patient's stated pain goal Goal: Patient displays improved well-being such as baseline levels for pulse, BP, respirations and relaxed muscle tone or body posture Outcome: Progressing Problem: Acute Pain Description: Patient's pain progressing toward patient's stated pain goal Goal: Patient will manage pain with the appropriate technique/intervention Description: Assess and monitor patient's pain using appropriate pain scale. Collaborate with interdisciplinary team and initiate plan and interventions as ordered. Re-assess patient's pain level 30-60 minutes after pain management intervention. Outcome: Progressing Problem: Acute Pain Description: Patient's pain progressing toward patient's stated pain goal Goal: Patient will reduce or eliminate use of analgesics Outcome: Progressing Problem: Acute Pain Description: Patient's pain progressing toward patient's stated pain goal Goal: Patients pain is managed to allow active participation in daily activities Outcome: Progressing * Plan of Care - Yana Bianchi RN - 06/18/2020 8:16 AM EST Problem: Knowledge deficit related to self-management of chronic disease Goal: Patient/family/caregiver demonstrates understanding of disease process, treatment plan, medications, and discharge instructions Outcome: Not Progressing * Plan of Care - Gloria Abraham RN - 06/17/2020 9:55 AM EST Problem: Knowledge deficit related to self-management of chronic disease Goal: Patient/family/caregiver demonstrates understanding of disease process, treatment plan, medications, and discharge instructions Outcome: Not Progressing * Plan of Care - Marie Braden RN - 06/17/2020 3:02 AM EST Problem: Fall Prevention Goal: Patient will remain [...] (excluding SNF),and non-skid footwear provided. Outcome: Progressing * Plan of Care - Irasema Mcguire RD - 06/16/2020 12:17 PM EST Problem: Increased Nutrient Needs (NI-5.1) Description: Related To: ESRD As Evidenced By: increased demands of nutrients needed Goal: Food and/or nutrient delivery Description: Weight goal +/- 10-15# Tolerate diet Renal labs within acceptable range BS less than 200 mg/dl to WNL. Intervention: Meal and snacks (ND-1) Description: Diet as ordered Note: Nutrition: Diet changed from regular to renal this date per MD. Upon admission pt was on Renal diet, refused and liberalize to regular on 06/09. Recent upward trend with K+ and Phos levels; wasgiven printed handouts on items to self limit 06/15. Will continue to watch further labs and therapeutic diet acceptance. Educated pt on diet changes and provided individualized menu and stated it's ok, I think I am going home soon . RD to follow. Irasema Mcguire RD, LD Phone [phone] [facility] [phone] * Plan of Care - Gloria Abraham RN - 06/16/2020 10:27 AM EST Problem: Knowledge deficit related to self-management of chronic disease Goal: Patient/family/caregiver demonstrates understanding of disease process, treatment plan, medications, and discharge instructions Outcome: Progressing * Plan of Care - Marie Braden RN - 06/16/2020 3:26 AM EST Problem: Fall Prevention Goal: Patient will remain [...] (excluding SNF),and non-skid footwear provided. Outcome: Progressing Adequate lighting is in the room, clear path to the restroom. The bed wheels are locked, the bed isin the lowest position. * Plan of Care - Irasema Mcguire RD - 06/15/2020 12:25 PM EST Problem: Increased Nutrient Needs (NI-5.1) Description: Related To: ESRD As Evidenced By: increased demands of nutrients needed Goal: Food and/or nutrient delivery Description: Weight goal +/- 10-15# Tolerate diet Renal labs within acceptable range BS less than 200 mg/dl to WNL. Outcome: Progressing Weekly wt 275#, closer to UBW/DW Tolerating diet K+ and Phos elevated, provided diet education FSBS varied, insulin adjusted. * Plan of Care - Jessica Dennis RN - 06/15/2020 11:43 AM EST Patient assessed QS and PRN for fall risk, VS monitored, neuro status, LOC, and orientation. Room kept uncluttered, adequate lighting, call light maintained in easy reach. Bed maintained in lowest position, SR up per policy, non-skid footwear provided. * Plan of Care - Sandra Casey RN - 06/15/2020 2:29 AM EST Aiden Stauffer Jr. alert and oriented x4. Pt in bed with bed in lowest position and wheels locked. Pt with 1/2 SR up x2. Pt reminded not to try and get up without assistance. Pt with over bed table at bedside. Pt with no acute distress noted call light in reach. BP 148/81 (BP Location: Right arm, Patient Position: Lying) Pulse 108 Temp 98.9 ??F (37.2 ??C) (Oral) Resp 18 Ht 5' 7 (1.702 m) Wt (!) 245 lb 7 oz (111.3 kg) Comment: had dialysis prior toarrrival SpO2 92% BMI 38.44 kg/m?? SANDRA CASEY 06/15/2020 Problem: Fall Prevention Goal: Patient will remain [...] (excluding SNF),and non-skid footwear provided. Outcome: Progressing * Plan of Care - Maru Bianchi RN - 06/14/2020 10:08 AM EST Problem: Fall Prevention Goal: Patient will remain [...] (excluding SNF),and non-skid footwear provided. Outcome: Progressing Problem: Knowledge Deficit Goal: Patient/family/caregiver demonstrates understanding of disease process, treatment plan, medications, and discharge instructions Description: Complete learning assessment and assess knowledge base. Outcome: Not Progressing Problem: Knowledge Deficit Goal: Patient/family/caregiver demonstrates understanding of disease process, treatment plan, medications, and discharge instructions Description: Complete learning assessment and assess knowledge base. Outcome: Not Progressing * Plan of Care - Yana Bianchi RN - 06/14/2020 1:49 AM EDT Problem: Chronic Pain Description: Patient's pain progressing toward patient's stated pain goal Goal: Pt will have limited adverse effects related to chronic pain Description: i.e. Depression, opioid induced constipation, respiratory depression Outcome: Progressing * Plan of Care - Kaycee Tirado RN - 06/13/2020 6:17 PM EDT CBG monitored and medications administered per orders. No s/sx of hyper- /hypoglycemia noted. * Plan of Care - Elroy Lawrence RN - 06/13/2020 12:11 AM EDT Call light in reach,bed in low and locked position, SR'S up x2. * Plan of Care - Sherwin Heller RN - 06/12/2020 4:35 PM EDT Problem: Glucose Imbalance related to [...] is within target range Outcome: Progressing Problem: Acute Pain Description: Patient's [...] a reduction in pain level Outcome: Progressing Goal: Discharge Pain Management Plan (Acute Pain) Outcome: Progressing Problem: Chronic Pain Description: Patient's pain progressing toward patient's stated pain goal Goal: Pt will have limited adverse effects related to chronic pain Description: i.e. Depression, opioid induced constipation, respiratory depression Outcome: Progressing Goal: Patient will manage pain [...] a reduction in pain level Outcome: Progressing Goal: Discharge Pain Management Plan (Chronic Pain) Outcome: Progressing Problem: Fall Prevention Goal: Patient will remain [...] (excluding SNF),and non-skid footwear provided. Outcome: Progressing Problem: Multi-Drug Resistant Organism Goal: Prevent transmission of infection Outcome: Progressing Problem: Knowledge Deficit Goal: Patient/family/caregiver demonstrates understanding of disease process, treatment plan, medications, and discharge instructions Description: Complete learning assessment and assess knowledge base. Outcome: Progressing Problem: Fall Prevention Goal: Patient will remain [...] (excluding SNF),and non-skid footwear provided. Outcome: Progressing Problem: Knowledge Deficit Goal: Patient/family/caregiver demonstrates understanding of disease process, treatment plan, medications, and discharge instructions Description: Complete learning assessment and assess knowledge base. Outcome: Progressing Problem: Anxiety Goal: Anxiety is at manageable level Description: Assess and monitor patient's anxiety level. Monitor for signs and symptoms of anxiety both physical and emotional (heart palpitations, chest pain, shortness of breath, headaches, nausea,feeling jumpy, restlessness, irritable, apprehensive). Collaborate with interdisciplinary team and initiate plan and interventions as ordered. Outcome: Progressing Problem: Discharge Planning Goal: Identify discharge needs Outcome: Progressing Goal: Patient's discharge needs are met Description: Collaborate with interdisciplinary team and initiate plans and interventions as needed. Outcome: Progressing Problem: Knowledge Deficit Goal: Patient/family/caregiver demonstrates understanding of disease process, treatment plan, medications, and discharge instructions Description: Complete learning assessment and assess knowledge base. Outcome: Progressing Problem: Potential for Compromised Skin Integrity Goal: Skin integrity is maintained or improved Description: Assess and monitor skin integrity. Identify patients at risk for skin breakdown on admission and per policy. Collaborate with interdisciplinary team and initiate plans and interventions as needed. Outcome: Progressing Goal: Nutritional status is improving Description: Monitor and assess patient for malnutrition (ex- brittle hair, bruises, dry skin, paleskin and conjunctiva, muscle wasting, smooth red tongue, and disorientation). Collaborate with interdisciplinary team and initiate plan and interventions as ordered. Monitor patient's weight and dietary intake as ordered or per policy. Utilize nutrition screening tool and intervene per policy. Determine patient's food preferences and provide high-protein, high- caloric foods as appropriate. Outcome: Progressing Problem: Knowledge Deficit Goal: Patient/family/caregiver demonstrates understanding of disease process, treatment plan, medications, and discharge instructions Description: Complete learning assessment and assess knowledge base. Outcome: Progressing Problem: Potential for Compromised Skin Integrity Goal: Skin integrity is maintained or improved Description: Assess and monitor skin integrity. Identify patients at risk for skin breakdown on admission and per policy. Collaborate with interdisciplinary team and initiate plans and interventions as needed. Outcome: Progressing Goal: Nutritional status is improving Description: Monitor and assess patient for malnutrition (ex- brittle hair, bruises, dry skin, paleskin and conjunctiva, muscle wasting, smooth red tongue, and disorientation). Collaborate with interdisciplinary team and initiate plan and interventions as ordered. Monitor patient's weight and dietary intake as ordered or per policy. Utilize nutrition screening tool and intervene per policy. Determine patient's food preferences and provide high-protein, high- caloric foods as appropriate. Outcome: Progressing Problem: Incontinence Goal: Perineal skin integrity is maintained or improved Description: Assess genitourinary system, perineal skin, labs (urinalysis), and history of incontinence to include past management, aggravating, and alleviating factors. Collaborate with interdisciplinary team and initiate plans and interventions as needed. Outcome: Progressing Problem: Knowledge Deficit Goal: Patient/family/caregiver demonstrates understanding of disease process, treatment plan, medications, and discharge instructions Description: Complete learning assessment and assess knowledge base. Outcome: Progressing Problem: Fall Prevention Goal: Patient will remain [...] (excluding SNF),and non-skid footwear provided. Outcome: Progressing * Plan of Care - Maru Benedict RN - 06/12/2020 12:34 AM EDT Problem: Glucose Imbalance related to diabetes disease process Goal: Clinical indication of glucose balance is achieved Outcome: Progressing Problem: Chronic Pain Description: Patient's pain progressing toward patient's stated pain goal Goal: Pt will have limited adverse effects related to chronic pain Description: i.e. Depression, opioid induced constipation, respiratory depression Outcome: Progressing Problem: Fall Prevention Goal: Patient will remain [...] (excluding SNF),and non-skid footwear provided. Outcome: Progressing * Plan of Care - Janeth Del Toro RN - 06/11/2020 10:45 AM EDT Pt educated to treat pain with different methods before its out of control. * Plan of Care - Maru Benedict RN - 06/10/2020 9:34 PM EDT Problem: Glucose Imbalance related to diabetes disease process Goal: Clinical indication of glucose balance is achieved Outcome: Progressing Problem: Chronic Pain Description: Patient's pain progressing toward patient's stated pain goal Goal: Pt will have limited adverse effects related to chronic pain Description: i.e. Depression, opioid induced constipation, respiratory depression Outcome: Progressing * Plan of Care - Maru Bianchi RN - 06/10/2020 9:38 AM EDT Problem: Knowledge deficit related to self-management of chronic disease Goal: Patient/family/caregiver demonstrates understanding of disease process, treatment plan, medications, and discharge instructions Outcome: Not Progressing Problem: Potential for imbalanced nutrition related to metabolic effect of diabetes Goal: Patient's nutritional needs will be met Outcome: Not Progressing Problem: Risk for ineffective therapeutic regimen management related to insulin pump Goal: Blood glucose is within target range Outcome: Not Progressing * Plan of Care - Maru Benedict RN - 06/10/2020 2:58 AM EDT Problem: Glucose Imbalance related to diabetes disease process Goal: Clinical indication of glucose balance is achieved Outcome: Progressing Problem: Chronic Pain Description: Patient's pain progressing toward patient's stated pain goal Goal: Patient will manage pain with the appropriate technique/intervention Description: Assess and monitor patient's pain using appropriate pain scale. Collaborate with interdisciplinary team and initiate plan and interventions as ordered. Re-assess patient's pain level 30-60 minutes after pain management intervention. Outcome: Progressing Problem: Multi-Drug Resistant Organism Goal: Prevent transmission of infection Outcome: Progressing * Plan of Care - Darling Carvajal OT - 06/09/2020 4:07 PM EDT Problem: Occupational Therapy Goal: Misc 1 Description: Goals Goals to be met in: in 4 weeks (07/10) Patient stated goal: to go home Patient will complete supine to sit in prep for ADLs: Independent(in 4 weeks (07/10)) Patient will complete functional chair transfer: Contact Guard assistance(in 4 weeks (07/10)) Patient will complete toilet transfer: Contact Guard assistance(in 4 weeks (07/10)) Patient will complete toileting: Stand-by assistance(in 4 weeks (07/10)) Patient will complete upper body dressing: Independent(in 4 weeks (07/10)) Patient will complete lower body dressing: Minimal assistance(in 4 weeks (07/10)) Patient will complete upper body bathing : Modified Independent(in 4 weeks (07/10)) Patient will complete lower body bathing : Stand-by assistance(in 4 weeks (07/10)) Pt Will participate in upper extremity HEP to prep for ADLs: : ongoing Miscellaneous Goal #1: Pt will ambulate household distances with RW and CGA Pipe 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 Goal : Pt will increase score on Dylon Index by 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 to be met in: 6 weeks Initial status: Functional Mobility Bed Mobility Rolling: Stand by assistance Supine to Sit: Moderate assistance Sit to Supine: Minimal assistance(assist with feet) Balance Sitting - Static: Contact Guard Assistance Sitting-Dynamic: Contact Guard Assistance ADL Feeding: Independent(independent for nursing) Toileting: pt reports to be using bedpan Outcome: Progressing Interventions: ADL retraining, Functional Transfer Training, Activity Tolerance Training, Energy Conservation, Patient / Family Education, Therapeutic Activity, Therapeutic Exercise, Compensatory Technique education, Discharge and Equipment Recommendations Pt to be seen by OT min of 3 x/week for 6 weeks. Please refer to evaluation and daily treatment notes for patient's current functional status, treatment plan and progress toward goals. Darling Russell, MERARYR/L License No. [id number] [facility] M-F 7:30-4:00 * Plan of Care - Rose Forte, PT - 06/09/2020 4:02 PM EDT Problem: Physical Therapy Goal: Instruct PT/Family on Safe Mobility Practices Description: oals to be met by: 07/07/20 Patient will transition from supine to sit: Modified Independent, without bedrails, HOB flat(by 07/07/20.) Patient will transfer from sit to stand: Stand-By assistance, up to assistive device(to RW by 07/07/20.) Patient will transfer bed/chair: Minimal assistance(by 06/23/20.) Patient will ambulate: (150' with RW and CGA by 07/07/20.) Patient will go up / down stairs: Contact Guard assistance(4 steps with 1 railing by 07/07/20.) Patient will sit edge of bed: Modified Independent(while performing UE activity by 06/23/20.) Patient will stand: Stand-By assistance, with assistive device(x 2 mins by 07/07/20.) Stand Assistive Device: Rolling walker Miscellaneous Goal #1: (Pt will increase score on FIST by 6 points by 07/07/20.) Miscellaneous Goal #2: (Pt will be indepedent with HEP for LE strengthening by 07/07/20.) Initial Status: Bed Mobility Rolling: Stand by assistance;towards the right;towards the left;use of handrail(Able to scoot self up in bed using head of bed to pull up on independently. ) Supine to Sit: (mod assist from OT with pt pulling up on his hand. ) Sit to Supine: Minimal assistance(for LE ) Transfers Sit to Stand: (unable to tolerate due to pain) Bed to Chair: (unable to tolerate due to pain) Balance Sitting - Static: Contact Guard Assistance(pt uses B UEs to take weight off of his back in sitting,very guarded. ) Sitting-Dynamic: Contact Guard Assistance(with L UE taking some weight off of his back while movingR UE for OT assessment. ) FIST: Note: Pt will be seen at least 3x/week for LE strengthening/ROM, endurance training, patient/familytraining, gait training, neuromuscular reeducation, therapeutic activity, therapeutic exercise Rose Forte, PT [id number] * Plan of Care - Maru Bianchi RN - 06/09/2020 10:24 AM EDT Problem: Knowledge Deficit Goal: Patient/family/caregiver demonstrates understanding of disease process, treatment plan, medications, and discharge instructions Description: Complete learning assessment and assess knowledge base. Outcome: Not Progressing Problem: Fall Prevention Goal: Patient will remain [...] policy (excluding SNF),and non-skid footwear provided. Outcome: Not Progressing Problem: Anxiety Goal: Anxiety is at manageable level Description: Assess and monitor patient's anxiety level. Monitor for signs and symptoms of anxiety both physical and emotional (heart palpitations, chest pain, shortness of breath, headaches, nausea,feeling jumpy, restlessness, irritable, apprehensive). Collaborate with interdisciplinary team and initiate plan and interventions as ordered. Outcome: Not Progressing * Plan of Care - Nishi Mendoza RN - 06/09/2020 10:00 AM EDT Problem: Knowledge Deficit Goal: Patient/family/caregiver demonstrates understanding of disease process, treatment plan, medications, and discharge instructions Description: Complete learning assessment and assess knowledge base. Outcome: Progressing Problem: Potential for Compromised Skin Integrity Goal: Skin integrity is maintained or improved Description: Assess and monitor skin integrity. Identify patients at risk for skin breakdown on admission and per policy. Collaborate with interdisciplinary team and initiate plans and interventions as needed. Outcome: Progressing Goal: Nutritional status is improving Description: Monitor and assess patient for malnutrition (ex- brittle hair, bruises, dry skin, paleskin and conjunctiva, muscle wasting, smooth red tongue, and disorientation). Collaborate with interdisciplinary team and initiate plan and interventions as ordered. Monitor patient's weight and dietary intake as ordered or per policy. Utilize nutrition screening tool and intervene per policy. Determine patient's food preferences and provide high-protein, high- caloric foods as appropriate. Outcome: Progressing Offload pressure points and provide pressure relief. Use low air loss mattress, heels boots, and pillows to off load pressure points. Patient able to turn and reposition self. Use Sween 24 to hydrateand moisturize skin. Use moisture barrier cream to protect groin, perianal skin and buttocks from incontinence. * Significant Event - Ryan Soriano MD - 06/09/2020 3:05 AM EDT Called by nurse @02:54 Pt calling out for more pain medications States what he was given at transferring hospital was not working Pt was on Dilaudid 0.5 mg IV every 6 hours last dose 15:19 10/09/19 Pt admit to [facility] 20:40 ( IV access pulled priot to transfer) Medications: Tylenol 975 mg 21:23, 02:09 ( 10/10/19) Xanax 0.5 mg 00:14 Gabapentin 200 mg 21:22 Dilaudid PO 2 mg 21:23, 02:09 (06/09/20) Zofran 4mg 22:40 Seroquel 12.5 mg 21:22 Robaxin 500 mg 21:27 Stopped to see pt at 03:15 Pt asleep in bed. Did not wake pt. D/w nursing Ryan Soriano MD * Plan of Care - Maru Benedict RN - 06/09/2020 1:44 AM EDT Problem: Glucose Imbalance related to diabetes disease process Goal: Clinical indication of glucose balance is achieved Outcome: Progressing Problem: Acute Pain Description: Patient's pain progressing toward patient's stated pain goal Goal: Patient displays improved well-being such as baseline levels for pulse, BP, respirations and relaxed muscle tone or body posture Outcome: Progressing Problem: Fall Prevention Goal: Patient will remain [...] (excluding SNF),and non-skid footwear provided. Outcome: Progressing Problem: Multi-Drug Resistant Organism Goal: Prevent transmission of infection Outcome: Progressing documented in this encounter Plan of Treatment Upcoming Encounters Date Type Department Care Team (Late st Contact Info) Description 07/15/2024 9:00 AM EST Hospital Encounter [facility] Interventional Radiology [address] [place] [id number] Herve Carrillo MD [address] [facility] [address] [place] [phone] Pending Results Name Type Priority Associated Diagnoses Date/Time Transfuse RBC Transfusion Rate: Per dept routine, 1 Units Nursing Transfusion Routine 06/24/2020 1 2:02 PM EST Transfuse RBC Nursing Transfusion Routine documented as of this encounter Procedures Procedure Name Priority Date/Time Associated Diagnosis Comments ORDER FORM P-NUT NPSC - SCAN 08/08/2020 8:26 AM EST 2019 NOVEL CORONAVIRUS (COVID-19) FRANKLYN - SCAN 06/29/2020 12:26 PM EST BLOOD TRANSFUSION - SCAN 06/29/2020 12:26 PM EST POC GLU MONITORING DEVICE Routine 06/25/2020 12:01 PM EST CBC Routine 06/25/2020 9:26 AM EST POC GLU MONITORING DEVICE Routine 06/25/2020 8:38 AM EST PREPARE RBC, LEUKOREDUCED Routine 06/25/2020 6:30 AM EST POC GLU MONITORING DEVICE Routine 06/24/2020 8:56 PM EST POC GLU MONITORING DEVICE Routine 06/24/2020 5:38 PM EST POC GLU MONITORING DEVICE Routine 06/24/2020 3:46 PM EST CBC Routine 06/24/2020 12:18 PM EST POC GLU MONITORING DEVICE Routine 06/24/2020 10:07 AM EST VANCOMYCIN, TROUGH STAT 06/24/2020 5: 45 AM EST POC GLU MONITORING DEVICE Routine 06/23/2020 10:07 PM EST POC GLU MONITORING DEVICE Routine 06/23/2020 5:38 PM EST POC GLU MONITORING DEVICE Routine 06/23/2020 12:22 PM EST POC GLU MONITORING DEVICE Routine 06/23/2020 10:01 AM EST CYCLOSPORINE LEVEL Timed 06/23/2020 6: 01 AM EST POC GLU MONITORING DEVICE Routine 06/22/2020 8:57 PM EST PREPARE RBC, LEUKOREDUCED Routine 06/22/2020 7:13 PM EST POC GLU MONITORING DEVICE Routine 06/22/2020 6:43 PM EST POC GLU MONITORING DEVICE Routine 06/22/2020 2:36 PM EST ANTIBODY IDENTIFICATION Routine 06/22/20 20 1:32 PM EST ELIUD ANTI-IGG Routine 06/22/2020 1:16 PM EST ABO/RH Routine 06/22/2020 9:05 AM EST ANTIBODY SCREEN Routine 06/22/2020 9:05 AM EST POC GLU MONITORING DEVICE Routine 06/22/2020 8:08 AM EST HEPATIC FUNCTION PANEL Routine 0 5:15 AM EST RENAL FUNCTION PANEL W/EGFR Routine 06/22/2020 5:15 AM EST SED RATE Routine 06/22/2020 5:15 AM EST CBC Routine 06/22/2020 5:15 AM EST C-REACTIVE PROTEIN Routine 06/22/2020 5: 15 AM EST VANCOMYCIN, TROUGH STAT 06/22/2020 5: 15 AM EST POC GLU MONITORING DEVICE Routine 06/21/2020 8:06 PM EST POC GLU MONITORING DEVICE Routine 06/21/2020 5:29 PM EST POC GLU MONITORING DEVICE Routine 06/21/2020 2:06 PM EST POC GLU MONITORING DEVICE Routine 06/21/2020 9:21 AM EST POC GLU MONITORING DEVICE Routine 06/20/2020 8:44 PM EST POC GLU MONITORING DEVICE Routine 06/20/2020 6:37 PM EST POC GLU MONITORING DEVICE Routine 06/20/2020 2:22 PM EST POC GLU MONITORING DEVICE Routine 06/20/2020 10:13 AM EST POC GLU MONITORING DEVICE Routine 06/19/2020 8:46 PM EST POC GLU MONITORING DEVICE Routine 06/19/2020 5:38 PM EST POC GLU MONITORING DEVICE Routine 06/19/2020 3:20 PM EST POC GLU MONITORING DEVICE Routine 06/19/2020 7:46 AM EST HEPATIC FUNCTION PANEL Routine 0 6:02 AM EST RENAL FUNCTION PANEL W/EGFR Routine 06/19/2020 6:02 AM EST CYCLOSPORINE LEVEL Timed 06/19/2020 6: 02 AM EST CBC Routine 06/19/2020 6:02 AM EST VANCOMYCIN, TROUGH STAT 06/19/2020 6: 02 AM EST POC GLU MONITORING DEVICE Routine 06/18/2020 7:23 PM EST POC GLU MONITORING DEVICE Routine 06/18/2020 6:20 PM EST POC GLU MONITORING DEVICE Routine 06/18/2020 2:39 PM EST POC GLU MONITORING DEVICE Routine 06/17/2020 8:20 PM EST RENAL FUNCTION PANEL W/EGFR STAT 06/17/2020 12:20 PM EST VANCOMYCIN, TROUGH STAT 06/17/2020 5: 44 AM EST POC GLU MONITORING DEVICE Routine 06/16/2020 8:30 PM EST POC GLU MONITORING DEVICE Routine 06/16/2020 8:51 AM EST CBC Routine 06/16/2020 5:55 AM EST BASIC METABOLIC PANEL Routine 06/16/2020 5:55 AM EST POC GLU MONITORING DEVICE Routine 06/15/2020 8:22 PM EST POC GLU MONITORING DEVICE Routine 06/15/2020 6:45 PM EST BASIC METABOLIC PANEL Routine 06/15/2020 6:30 PM EST RENAL FUNCTION PANEL W/EGFR STAT 06/15/2020 2:14 PM EST POC GLU MONITORING DEVICE Routine 06/15/2020 10:56 AM EST OCCULT BLOOD Routine 06/15/2020 9:10 AM EST HEPATIC FUNCTION PANEL Routine 0 5:38 AM EST RENAL FUNCTION PANEL W/EGFR Routine 06/15/2020 5:38 AM EST SED RATE Routine 06/15/2020 5:38 AM EST CBC Routine 06/15/2020 5:38 AM EST C-REACTIVE PROTEIN Routine 06/15/2020 5: 38 AM EST VANCOMYCIN, TROUGH Routine 06/15/2020 5: 38 AM EST POC GLU MONITORING DEVICE Routine 06/14/2020 8:12 PM EST POC GLU MONITORING DEVICE Routine 06/14/2020 4:55 PM EST POC GLU MONITORING DEVICE Routine 06/14/2020 11:17 AM EST POC GLU MONITORING DEVICE Routine 06/14/2020 8:51 AM EST POC GLU MONITORING DEVICE Routine 06/14/2020 2:01 AM EST POC GLU MONITORING DEVICE Routine 06/13/2020 5:09 PM EDT POC GLU MONITORING DEVICE Routine 06/13/2020 12:29 PM EDT XR HIP RIGHT 2-3 VIEWS INCLUDING AP PELVIS Routine 06/13/2020 9:26 AM EDT POC GLU MONITORING DEVICE Routine 06/13/2020 8:03 AM EDT DIFFERENTIAL Routine 06/13/2020 6:38 AM EDT CBC Routine 06/13/2020 6:38 AM EDT PREPARE RBC, LEUKOREDUCED Routine 06/13/2020 6:30 AM EDT POC GLU MONITORING DEVICE Routine 06/12/2020 9:17 PM EDT POC GLU MONITORING DEVICE Routine 06/12/2020 7:03 PM EDT TRANSFUSE RED BLOOD CELLS Routine 06/12/2020 4:11 PM EDT POC GLU MONITORING DEVICE Routine 06/12/2020 12:49 PM EDT POC GLU MONITORING DEVICE Routine 06/12/2020 9:14 AM EDT RENAL FUNCTION PANEL W/EGFR Routine 06/12/2020 5:45 AM EDT CYCLOSPORINE LEVEL Timed 06/12/2020 5: 45 AM EDT CBC Routine 06/12/2020 5:45 AM EDT VANCOMYCIN, TROUGH Routine 06/12/2020 5: 45 AM EDT POC GLU MONITORING DEVICE Routine 06/11/2020 9:17 PM EDT POC GLU MONITORING DEVICE Routine 06/11/2020 5:23 PM EDT POC GLU MONITORING DEVICE Routine 06/11/2020 12:23 PM EDT POC GLU MONITORING DEVICE Routine 06/11/2020 8:51 AM EDT ANTIBODY IDENTIFICATION Routine 06/10/20 11:08 PM EDT ELUTION & ANTIBODY IDENTIFICATION, RBC Routine 06/10/2020 11:07 PM EDT ELIUD ANTI-IGG Routine 06/10/2020 11:05 PM EDT ABO/RH Routine 06/10/2020 10:43 PM EDT POC GLU MONITORING DEVICE Routine 06/10/2020 8:59 PM EDT POC GLU MONITORING DEVICE Routine 06/10/2020 4:42 PM EDT RENAL FUNCTION PANEL W/EGFR Routine 06/10/2020 3:25 PM EDT ABO/RH Add-On 06/10/2020 3:25 PM EDT CBC Routine 06/10/2020 3:25 PM EDT ANTIBODY SCREEN Add-On 06/10/2020 3:25 PM EDT PTH, INTACT Routine 06/10/2020 3:25 PM EDT POC GLU MONITORING DEVICE Routine 06/10/2020 11:05 AM EDT POC GLU MONITORING DEVICE Routine 06/10/2020 8:17 AM EDT VANCOMYCIN, TROUGH Routine 06/10/2020 5: 33 AM EDT POC GLU MONITORING DEVICE Routine 06/09/2020 9:26 PM EDT POC GLU MONITORING DEVICE Routine 06/09/2020 5:28 PM EDT POC GLU MONITORING DEVICE Routine 06/09/2020 12:55 PM EDT POC GLU MONITORING DEVICE Routine 06/09/2020 9:27 AM EDT CBC Routine 06/09/2020 6:05 AM EDT PREALBUMIN Routine 06/09/2020 6:05 AM EDT PHOSPHORUS Routine 06/09/2020 6:05 AM EDT MAGNESIUM Routine 06/09/2020 6:05 AM EDT HEMOGLOBIN A1C Routine 06/09/2020 6:05 AM EDT VANCOMYCIN, RANDOM Timed 06/09/2020 6: 05 AM EDT COMPREHENSIVE METABOLIC PANEL Routine 06/09/2020 6:05 AM EDT TRANSFUSE RED BLOOD CELLS Routine documented in this encounter Results * ORDER FORM P-NUT NPSC - SCAN (08/08/2020 8:26 AM EST) us Scanning [facility] SCAN DOCS - NO RESULTS Final Res ult * BLOOD TRANSFUSION - SCAN (06/29/2020 12:26 PM EST) us Scanning [facility] SCAN DOCS - NO RESULTS Final Res ult * 2019 NOVEL CORONAVIRUS (COVID-19) FRANKLYN - SCAN (06/29/2020 12:26 PM EST) us Scanning [facility] SCAN DOCS - NO RESULTS Final Res ult * (ABNORMAL) POC Glucose Monitoring Device (06/25/2020 12:01 PM EST) POC Glucose Monitoring Device 163(H) 70 - 100 mg/dL 06/25/2020 12:01 PM EST [facility] Blood specimen (specimen) 06/25/2020 12:01 PM EST 06/25/2020 12:01 PM EST Ryan Soriano MD POINT OF CARE TEST ORDERA BLES Final Result [facility] [address] * (ABNORMAL) CBC (06/25/2020 9:26 AM EST) WBC 5.2 3.8 - 10.8 10E3/uL 06/25/2020 10:54 AM EST [facility] RBC 2.62(L) 4.20 - 5.80 10E6/uL 06/25/2020 10:54 AM EST [facility] Hemoglobin 7.8(L) 13.2 - 17.1 g/dL 06/25/2020 10:54 AM EST [facility] Hematocrit 23.5(L) 38.5 - 50.0 % 06/25/2020 10:54 AM EST [facility] MCV 89.5 80.0 - 100.0 fL 06/25/2020 10:54 AM EST [facility] MCH 29.6 27.0 - 33.0 pg 06/25/2020 10:54 AM EST [facility] MCHC 33.1 32.0 - 36.0 g/dL 06/25/2020 10:54 AM EST [facility] RDW 18.0(H) 11.0 - 15.0 % 06/25/2020 10:54 AM EST [facility] Platelets 301 140 - 400 10E3/uL 06/25/2020 10:54 AM EST [facility] MPV 6.6(L) 7.5 - 11.5 fL 06/25/2020 10:54 AM EST [facility] Whole blood specimen (specimen) 06/25/2020 9:26 AM EST 06/25/2020 10:47 AM EST Jake Zavala MD LAB BLOOD ORDERABLES Final Res ult [facility] [address] * (ABNORMAL) POC Glucose Monitoring Device (06/25/2020 8:38 AM EST) Pathologist [facility] POC Glucose Monitoring Device 112(H) 70 - 100 mg/dL 06/25/2020 8:39 AM EST [facility] Blood specimen (specimen) 06/25/2020 8:38 AM EST 06/25/2020 8:39 AM EST Ryan Soriano MD POINT OF CARE TEST ORDERA BLES Final Result [facility] [address] * Prepare RBC, leukoreduced, 1 Units (06/25/2020 6:30 AM EST) Product Code O2870I27 HCLL Unit Number [id number] HCLL Dispense Status Presumed Transfused_PT HCLL Blood Expiration Date [id number] [facility] Coding System [id number] [facility] Specimen from blood bag from blood product (specimen) Jake Zavala MD BLOOD BANK PRODUCT ORDERABLES Final Result Performing Organization Address [facility]/ZIP Co de Phone Number [facility] * (ABNORMAL) POC Glucose Monitoring Device (06/24/2020 8:56 PM EST) POC Glucose Monitoring Device 152(H) 70 - 100 mg/dL 06/24/2020 8:57 PM EST [facility] Blood specimen (specimen) 06/24/2020 8:56 PM EST 06/24/2020 8:57 PM EST Ryan Soriano MD POINT OF CARE TEST ORDERA BLES Final Result Performing Organization Address [facility] Co de Phone Number [facility] [address] [facility] * (ABNORMAL) POC Glucose Monitoring Device (06/24/2020 5:38 PM EST) POC Glucose Monitoring Device 161(H) 70 - 100 mg/dL 06/24/2020 5:38 PM EST [facility] Blood specimen (specimen) 06/24/2020 5:38 PM EST 06/24/2020 5:38 PM EST Ryan Soriano MD POINT OF CARE TEST ORDERA BLES Final Result Performing Organization Address City/[facility]/ZIP Co de Phone Number [facility] [address] [facility] * (ABNORMAL) POC Glucose Monitoring Device (06/24/2020 3:46 PM EST) POC Glucose Monitoring Device 180(H) 70 - 100 mg/dL 06/24/2020 3:46 PM EST [facility] Blood specimen (specimen) 06/24/2020 3:46 PM EST 06/24/2020 3:46 PM EST us Ryan Soriano MD POINT OF CARE TEST ORDERA BLES Final Result [facility] [address] * (ABNORMAL) CBC (06/24/2020 12:18 PM EST) WBC 5.0 3.8 - 10.8 10E3/uL 06/24/2020 1:52 PM EST [facility] RBC 2.47(L) 4.20 - 5.80 10E6/uL 06/24/2020 1:52 PM EST [facility] Hemoglobin 7.3(L) 13.2 - 17.1 g/dL 06/24/2020 1:52 PM EST [facility] Hematocrit 22.3(L) 38.5 - 50.0 % 06/24/2020 1:52 PM EST [facility] MCV 90.4 80.0 - 100.0 fL 06/24/2020 1:52 PM EST [facility] MCH 29.6 27.0 - 33.0 pg 06/24/2020 1:52 PM EST [facility] MCHC 32.8 32.0 - 36.0 g/dL 06/24/2020 1:52 PM EST [facility] RDW 17.6(H) 11.0 - 15.0 % 06/24/2020 1:52 PM EST [facility] Platelets 282 140 - 400 10E3/uL 06/24/2020 1:52 PM EST [facility] MPV 6.8(L) 7.5 - 11.5 fL 06/24/2020 1:52 PM EST [facility] Whole blood specimen (specimen) 06/24/2020 12:18 PM EST 06/24/2020 1:38 PM EST us Jake Zavala MD LAB BLOOD ORDERABLES Final Res ult [facility] [address] * (ABNORMAL) POC Glucose Monitoring Device (06/24/2020 10:07 AM EST) POC Glucose Monitoring Device 165(H) 70 - 100 mg/dL 06/24/2020 10:08 AM EST [facility] Blood specimen (specimen) 06/24/2020 10:07 AM EST 06/24/2020 10:08 AM EST Ryan Soriano MD POINT OF CARE TEST ORDERA BLES Final Result Performing Organization Address City/[facility]/ZIP Co de Phone Number [facility] [address] [place] [address] * Vancomycin, trough (06/24/2020 5:45 AM EST) Vancomycin Tr 16.6 10.0 - 20.0 ug/mL 06/24/2020 7:51 AM EST [facility] Plasma specimen (specimen) 06/24/2020 5:45 AM EST 06/24/2020 7:25 AM EST Joan Urbina [facility] LAB BLOOD ORDERABLES Fi nal Result Performing Organization Address [facility]/ZIP Co de Phone Number [facility] [address] [facility]. [address] * (ABNORMAL) POC Glucose Monitoring Device (06/23/2020 10:07 PM EST) POC Glucose Monitoring Device 134(H) 70 - 100 mg/dL 06/23/2020 10:13 PM EST [facility] Blood specimen (specimen) 06/23/2020 10:07 PM EST 06/23/2020 10:13 PM EST Ryan Soriano MD POINT OF CARE TEST ORDERA BLES Final Result Performing Organization Address City/[facility]/ZIP Co de Phone Number [facility] [address] [place] [address]. [address] * (ABNORMAL) POC Glucose Monitoring Device (06/23/2020 5:38 PM EST) POC Glucose Monitoring Device 156(H) 70 - 100 mg/dL 06/23/2020 5:40 PM EST [facility] Blood specimen (specimen) 06/23/2020 5:38 PM EST 06/23/2020 5:40 PM EST Ryan Soriano MD POINT OF CARE TEST ORDERA BLES Final Result Performing Organization Address [facility] Co de Phone Number [facility] [address] [place] [address] * (ABNORMAL) POC Glucose Monitoring Device (06/23/2020 12:22 PM EST) POC Glucose Monitoring Device 121(H) 70 - 100 mg/dL 06/23/2020 12:22 PM EST [facility] Blood specimen (specimen) 06/23/2020 12:22 PM EST 06/23/2020 12:22 PM EST Ryan Soriano MD POINT OF CARE TEST ORDERA BLES Final Result Performing Organization Address [facility] Co de Phone Number [facility] [address] [place] [address]. [address] * (ABNORMAL) POC Glucose Monitoring Device (06/23/2020 10:01 AM EST) POC Glucose Monitoring Device 138(H) 70 - 100 mg/dL 06/23/2020 10:06 AM EST [facility] Blood specimen (specimen) 06/23/2020 10:01 AM EST 06/23/2020 10:06 AM EST Ryan Soriano MD POINT OF CARE TEST ORDERA BLES Final Result Performing Organization Address [facility] Co de Phone Number [facility] [address] [place] [address]. [address] * (ABNORMAL) Cyclosporine level (06/23/2020 6:01 AM EST) Cyclosporine, Blood 44(L) 100 - 400 ng/mL 06/23/2020 12:58 PM EST [facility] Comment: Detection limit: ??30 ng/mL. ??Performed via chemiluminescent microparticle immunoassay on the [employer] i1000. Whole blood specimen (specimen) 06/23/2020 6:01 AM EST 06/23/2020 8:18 AM EST Yessy Molina MD LAB BLOOD ORDERABLES Fi nal Result Performing Organization Address [facility]/ZIP Co de Phone Number [facility] [address] * (ABNORMAL) POC Glucose Monitoring Device (06/22/2020 8:57 PM EST) POC Glucose Monitoring Device 124(H) 70 - 100 mg/dL 06/22/2020 9:16 PM EST [facility] Blood specimen (specimen) 06/22/2020 8:57 PM EST 06/22/2020 9:15 PM EST Ryan Soriano MD POINT OF CARE TEST ORDERA BLES Final Result Performing Organization Address [facility] Co de Phone Number [facility] [address] [place] [address] * Prepare RBC, leukoreduced, 1 Units (06/22/2020 7:13 PM EST) Product Code [id number] HCLL Unit Number [id number] HCLL Dispense Status Released from Crossmatch_RE HCLL Blood Expiration Date [id number] HCLL Coding System [id number] HCLL Specimen from blood bag from blood product (specimen) Jake Zavala MD BLOOD BANK PRODUCT ORDERABLES Final Result [facility] * (ABNORMAL) POC Glucose Monitoring Device (06/22/2020 6:43 PM EST) POC Glucose Monitoring Device 104(H) 70 - 100 mg/dL 06/22/2020 6:43 PM EST [facility] Blood specimen (specimen) 06/22/2020 6:43 PM EST 06/22/2020 6:43 PM EST Ryan Soriano MD POINT OF CARE TEST ORDERA BLES Final Result Performing Organization Address City/[facility]/ZIP Co de Phone Number [facility] [address] [place] [address]. [address] * (ABNORMAL) POC Glucose Monitoring Device (06/22/2020 2:36 PM EST) POC Glucose Monitoring Device 116(H) 70 - 100 mg/dL 06/22/2020 2:37 PM EST [facility] Blood specimen (specimen) 06/22/2020 2:36 PM EST 06/22/2020 2:37 PM EST Ryan Soriano MD POINT OF CARE TEST ORDERA BLES Final Result Performing Organization Address [facility] Co de Phone Number [facility] [address] [facility]. [address] * Antibody identification (06/22/2020 1:32 PM EST) Antibody Id. #1 Anti-C 06/22/2020 1:24 PM EST [facility] Antibody Id. #2 Anti-D 06/22/2020 1:24 PM EST [facility] Antibody Id. #3 Warm Auto Antibody 06/22/2020 1:24 PM EST [facility] Blood specimen (specimen) 06/22/2020 1:32 PM EST 06/22/2020 1:32 PM EST Jake Zavala MD BLOOD BANK TEST ORDERABLES Fin al Result Performing Organization Address City/[facility]/ZIP Co de Phone Number [facility] [address] [facility]. [address] * ELIUD Anti-IgG (06/22/2020 1:16 PM EST) ELIUD IgG Positive 06/22/2020 1:16 PM EST [facility] Blood specimen (specimen) 06/22/2020 1:16 PM EST 06/22/2020 1:16 PM EST Jake Zavala MD BLOOD BANK TEST ORDERABLES Fin al Result Performing Organization Address [facility] Co de Phone Number [facility] [address] [place] [address]. [address] * Antibody Screen (06/22/2020 9:05 AM EST) Antibody Screen Positive 06/22/2020 1:16 PM EST [facility] Blood specimen (specimen) 06/22/2020 9:05 AM EST 06/22/2020 9:10 AM EST Narrative [facility] - 06/22/2020 1:16 PM EST Testing performed by [facility] Transfusion Service Jake Zavala MD BLOOD BANK TEST ORDERABLES Fin al Result Performing Organization Address [facility] Co de Phone Number [facility] [address] [place] [address] * ABO/Rh (06/22/2020 9:05 AM EST) ABO Grouping O 06/22/2020 1:15 PM EST [facility] Rh Type Negative 06/22/2020 1:15 PM EST [facility] Blood specimen (specimen) 06/22/2020 9:05 AM EST 06/22/2020 9:10 AM EST Jake Zavala MD BLOOD BANK TEST ORDERABLES Fin al Result Performing Organization Address [facility] Co de Phone Number [facility] [address] [place] [address]. [address] * (ABNORMAL) POC Glucose Monitoring Device (06/22/2020 8:08 AM EST) POC Glucose Monitoring Device 123(H) 70 - 100 mg/dL 06/22/2020 8:13 AM EST [facility] Blood specimen (specimen) 06/22/2020 8:08 AM EST 06/22/2020 8:13 AM EST Ryan Soriano MD POINT OF CARE TEST ORDERA BLES Final Result Performing Organization Address [facility]/ZIP Co de Phone Number [facility] [address] * Vancomycin, trough (06/22/2020 5:15 AM EST) Vancomycin Tr 16.4 10.0 - 20.0 ug/mL 06/22/2020 7:46 AM EST [facility] Plasma specimen (specimen) 06/22/2020 5:15 AM EST 06/22/2020 7:26 AM EST Joan Urbina [facility] BLOOD ORDERABLES Fi nal Result Performing Organization Address [facility] Co de Phone Number [facility] [address] * (ABNORMAL) Hepatic Function Panel (06/22/2020 5:15 AM EST) Total Bilirubin 0.3 0.0 - 1.5 mg/dL 06/22/2020 7:50 AM EST [facility] Bilirubin, Direct 0.11 0.00 - 0.40 mg/dL 06/22/2020 7:50 AM EST [facility] AST 9(L) 13 - 39 U/L 06/22/2020 7:50 AM [facility] ALT 3(L) 7 - 52 U/L 06/22/2020 7:50 AM EST [facility] Alkaline Phosphatase 59 36 - 125 U/L 06/22/2020 7:50 AM [facility] Total Protein 5.9(L) 6.4 - 8.9 g/dL 06/22/2020 7:50 AM EST [facility] Albumin 2.8(L) 3.5 - 5.7 g/dL 06/22/2020 7:50 AM [facility] Bilirubin, Indirect 0.19 0.00 - 1.10 mg/dL 06/22/2020 7:50 AM EST [facility] Plasma specimen (specimen) 06/22/2020 5:15 AM EST 06/22/2020 7:26 AM EST Jake Zavala MD LAB BLOOD ORDERABLES Final Res ult [facility] [address] [place] [id number], [facility] * (ABNORMAL) Renal Function Panel w/EGFR (06/22/2020 5:15 AM EST) Sodium 130(L) 133 - 146 mmol/L 06/22/2020 7:50 AM EST [facility] Potassium 5.2 3.5 - 5.3 mmol/L 06/22/2020 7:50 AM EST [facility] Chloride 93(L) 98 - 110 mmol/L 06/22/2020 7:50 AM EST [facility] CO2 27 21 - 33 mmol/L 06/22/2020 7:50 AM EST [facility] Anion Gap 10 3 - 16 mmol/L 06/22/2020 7:50 AM EST [facility] BUN 27(H) 7 - 25 mg/dL 06/22/2020 7:50 AM EST [facility] Creatinine 6.49(H) 0.60 - 1.30 mg/dL 06/22/2020 7:50 AM EST [facility] Glucose 104(H) 70 - 100 mg/dL 06/22/2020 7:50 AM EST [facility] Calcium 8.6 8.6 - 10.3 mg/dL 06/22/2020 7:50 AM EST [facility] Phosphorus 5.4(H) 2.1 - 4.7 mg/dL 06/22/2020 7:50 AM EST [facility] Albumin 2.8(L) 3.5 - 5.7 g/dL 06/22/2020 7:50 AM EST [facility] Osmolality, Calculated 275(L) 278 - 305 mOsm/kg 06/22/2020 7:50 AM EST [facility] eGFR AA CKD-EPI 11 See note. 0 7:50 AM EST [facility] Comment: As of 2015 the estimated GFR is calculated from serum creatinine using the Chronic Kidney Disease Epidemiology Collaboration (CKD-EPI) equation in patients 18 years and older. ??The reference range is >60 mL/min/1.73m2. ??eGFR values greater than 90 will be reported as >90mL/min/1.73m2. Reference: Isabel , Neftali LA, Marion CH, Ranulfo YL, Colten 3rd KEARNEY Feldman HI et. al. A new equation to estimate glomerular filtration rate. ??[employer]enn[employer] Med. 2009:150(9):604-12 eGFR NONAA CKD-EPI 9 See note. 2019 7:50 AM EST [facility] Comment: As of 2015 the estimated GFR is calculated from serum creatinine using the Chronic Kidney Disease Epidemiology Collaboration (CKD-EPI) equation in patients 18 years and older. ??The reference range is >60 mL/min/1.73m2. ??eGFR values greater than 90 will be reported as >90mL/min/1.73m2. Reference: Isabel , Neftali LA, Marion CH, Ranulfo YL, 3rd Alia, Quan MILLER, et. al. A new equation to estimate glomerular filtration rate. ??Jennifer [employer] Med. 2009:150(9):604-12 Plasma specimen (specimen) 06/22/2020 5:15 AM EST 06/22/2020 7:26 AM EST us Avril Calderon MD LAB BLOOD ORDERABLES Final Resul t [facility] [address] [place] [address], [facility] * (ABNORMAL) CBC (06/22/2020 5:15 AM EST) WBC 4.8 3.8 - 10.8 10E3/uL 06/22/2020 7:52 AM EST [facility] RBC 2.21(L) 4.20 - 5.80 10E6/uL 06/22/2020 7:52 AM EST [facility] Hemoglobin 6.7(L) 13.2 - 17.1 g/dL 06/22/2020 7:52 AM EST [facility] Hematocrit 20.4(L) 38.5 - 50.0 % 06/22/2020 7:52 AM EST [facility] MCV 92.5 80.0 - 100.0 fL 06/22/2020 7:52 AM EST [facility] MCH 30.6 27.0 - 33.0 pg 06/22/2020 7:52 AM EST [facility] MCHC 33.0 32.0 - 36.0 g/dL 06/22/2020 7:52 AM EST [facility] RDW 15.8(H) 11.0 - 15.0 % 06/22/2020 7:52 AM EST [facility] Platelets 270 140 - 400 10E3/uL 06/22/2020 7:52 AM EST [facility] MPV 7.0(L) 7.5 - 11.5 fL 06/22/2020 7:52 AM EST [facility] Whole blood specimen (specimen) 06/22/2020 5:15 AM EST 06/22/2020 7:30 AM EST Avril Calderon MD LAB BLOOD ORDERABLES Final Resul t Performing Organization Address [facility] Co de Phone Number [facility] [address] [facility]. [address] * (ABNORMAL) C-reactive protein (06/22/2020 5:15 AM EST) CRP 94.2(H) 1.0 - 10.0 mg/L 06/22/2020 7:50 AM EST [facility] Plasma specimen (specimen) 06/22/2020 5:15 AM EST 06/22/2020 7:26 AM EST Jake Zavala MD LAB BLOOD ORDERABLES Final Res ult Performing Organization Address [facility] Co de Phone Number [facility] [address] [facility] * (ABNORMAL) Sed Rate (06/22/2020 5:15 AM EST) Sed Rate 21(H) 0 - 15 mm/hr 06/22/2020 8:11 AM EST [facility] Whole blood specimen (specimen) 06/22/2020 5:15 AM EST 06/22/2020 7:30 AM EST Jake Zavala MD LAB BLOOD ORDERABLES Final Res ult Performing Organization Address City/[facility] Co de Phone Number [facility] [address] [facility]. [address] * (ABNORMAL) POC Glucose Monitoring Device (06/21/2020 8:06 PM EST) POC Glucose Monitoring Device 119(H) 70 - 100 mg/dL 06/21/2020 8:07 PM EST [facility] Blood specimen (specimen) 06/21/2020 8:06 PM EST 06/21/2020 8:07 PM EST Ryan Sroiano MD POINT OF CARE TEST ORDERA BLES Final Result [facility] [address] [facility] * (ABNORMAL) POC Glucose Monitoring Device (06/21/2020 5:29 PM EST) POC Glucose Monitoring Device 117(H) 70 - 100 mg/dL 06/21/2020 5:30 PM EST [facility] Blood specimen (specimen) 06/21/2020 5:29 PM EST 06/21/2020 5:30 PM EST Ryan Soriano MD POINT OF CARE TEST ORDERA BLES Final Result Performing Organization Address City/[facility]/ZIP Co de Phone Number [facility] [address] [facility] * (ABNORMAL) POC Glucose Monitoring Device (06/21/2020 2:06 PM EST) POC Glucose Monitoring Device 159(H) 70 - 100 mg/dL 06/21/2020 2:07 PM EST [facility] Blood specimen (specimen) 06/21/2020 2:06 PM EST 06/21/2020 2:07 PM EST Ryan Soriano MD POINT OF CARE TEST ORDERA BLES Final Result [facility] [address] [facility] * (ABNORMAL) POC Glucose Monitoring Device (06/21/2020 9:21 AM EST) POC Glucose Monitoring Device 153(H) 70 - 100 mg/dL 06/21/2020 9:39 AM EST [facility] Blood specimen (specimen) 06/21/2020 9:21 AM EST 06/21/2020 9:39 AM EST Ryan Soriano MD POINT OF CARE TEST ORDERA BLES Final Result Performing Organization Address [facility] Co de Phone Number [facility] [address] [place] [address] * (ABNORMAL) POC Glucose Monitoring Device (06/20/2020 8:44 PM EST) POC Glucose Monitoring Device 148(H) 70 - 100 mg/dL 06/20/2020 8:45 PM EST [facility] Blood specimen (specimen) 06/20/2020 8:44 PM EST 06/20/2020 8:44 PM EST Ryan Soriano MD POINT OF CARE TEST ORDERA BLES Final Result Performing Organization Address [facility] Co de Phone Number [facility] [address] [place] [address] * (ABNORMAL) POC Glucose Monitoring Device (06/20/2020 6:37 PM EST) POC Glucose Monitoring Device 107(H) 70 - 100 mg/dL 06/20/2020 6:47 PM EST [facility] Blood specimen (specimen) 06/20/2020 6:37 PM EST 06/20/2020 6:46 PM EST Ryan Soriano MD POINT OF CARE TEST ORDERA BLES Final Result Performing Organization Address City/[facility] Co de Phone Number [facility] [address] [place] [address] * (ABNORMAL) POC Glucose Monitoring Device (06/20/2020 2:22 PM EST) POC Glucose Monitoring Device 158(H) 70 - 100 mg/dL 06/20/2020 2:31 PM EST [facility] Blood specimen (specimen) 06/20/2020 2:22 PM EST 06/20/2020 2:31 PM EST Ryan Soriano MD POINT OF CARE TEST ORDERA BLES Final Result Performing Organization Address [facility]/ZIP Co de Phone Number [facility] [address] [facility]. [address] * (ABNORMAL) POC Glucose Monitoring Device (06/20/2020 10:13 AM EST) POC Glucose Monitoring Device 129(H) 70 - 100 mg/dL 06/20/2020 10:32 AM EST [facility] Blood specimen (specimen) 06/20/2020 10:13 AM EST 06/20/2020 10:32 AM EST Ryan Soriano MD POINT OF CARE TEST ORDERA BLES Final Result Performing Organization Address [facility] Co de Phone Number [facility] [address] [facility] * (ABNORMAL) POC Glucose Monitoring Device (06/19/2020 8:46 PM EST) POC Glucose Monitoring Device 226(H) 70 - 100 mg/dL 06/19/2020 8:56 PM EST [facility] Blood specimen (specimen) 06/19/2020 8:46 PM EST 06/19/2020 8:56 PM EST Ryan Soriano MD POINT OF CARE TEST ORDERA BLES Final Result Performing Organization Address City/[facility]/ZIP Co de Phone Number [facility] [address] [facility] * POC Glucose Monitoring Device (06/19/2020 5:38 PM EST) POC Glucose Monitoring Device 97 70 - 100 mg/dL 06/19/2020 5:44 PM EST [facility] Blood specimen (specimen) 06/19/2020 5:38 PM EST 06/19/2020 5:44 PM EST Ryan Soriano MD POINT OF CARE TEST ORDERA BLES Final Result Performing Organization Address [facility] Co de Phone Number [facility] [address] [place] [address]. [address] * (ABNORMAL) POC Glucose Monitoring Device (06/19/2020 3:20 PM EST) POC Glucose Monitoring Device 120(H) 70 - 100 mg/dL 06/19/2020 3:21 PM EST [facility] Blood specimen (specimen) 06/19/2020 3:20 PM EST 06/19/2020 3:21 PM EST Ryan Soriano MD POINT OF CARE TEST ORDERA BLES Final Result Performing Organization Address [facility] de Phone Number [facility] [address] [place] [address]. [address] * (ABNORMAL) POC Glucose Monitoring Device (06/19/2020 7:46 AM EST) POC Glucose Monitoring Device 175(H) 70 - 100 mg/dL 06/19/2020 7:48 AM EST [facility] Blood specimen (specimen) 06/19/2020 7:46 AM EST 06/19/2020 7:48 AM EST Ryan Soriano MD POINT OF CARE TEST ORDERA BLES Final Result Performing Organization Address [facility] Co de Phone Number [facility] [address] [place] [address]. [address] * Vancomycin, trough (06/19/2020 6:02 AM EST) Vancomycin Tr 17.6 10.0 - 20.0 ug/mL 06/19/2020 8:20 AM EST [facility] Plasma specimen (specimen) 06/19/2020 6:02 AM EST 06/19/2020 8:03 AM EST us Joan Urbina [facility] LAB BLOOD ORDERABLES Fi nal Result Performing Organization Address [facility] Co de Phone Number [facility] [address] * (ABNORMAL) Hepatic Function Panel (06/19/2020 6:02 AM EST) Total Bilirubin 0.4 0.0 - 1.5 mg/dL 06/19/2020 8:26 AM EST [facility] Bilirubin, Direct 0.06 0.00 - 0.40 mg/dL 06/19/2020 8:26 AM EST [facility] AST 9(L) 13 - 39 U/L 06/19/2020 8:26 AM EST [facility] ALT 4(L) 7 - 52 U/L 06/19/2020 8:26 AM EST [facility] Alkaline Phosphatase 71 36 - 125 U/L 06/19/2020 8:26 AM EST [facility] Total Protein 6.8 6.4 - 8.9 g/dL 06/19/2020 8:26 AM EST [facility] Albumin 3.2(L) 3.5 - 5.7 g/dL 06/19/2020 8:26 AM EST [facility] Bilirubin, Indirect 0.34 0.00 - 1.10 mg/dL 06/19/2020 8:26 AM EST [facility] Plasma specimen (specimen) 06/19/2020 6:02 AM EST 06/19/2020 8:03 AM EST us Jake Zavala MD LAB BLOOD ORDERABLES Final Res ult [facility] [address] * (ABNORMAL) Renal Function Panel w/EGFR (06/19/2020 6:02 AM EST) Sodium 133 133 - 146 mmol/L 06/19/2020 8:26 AM EST [facility] Potassium 5.5(H) 3.5 - 5.3 mmol/L 06/19/2020 8:26 AM EST [facility] Chloride 94(L) 98 - 110 mmol/L 06/19/2020 8:26 AM EST [facility] CO2 27 21 - 33 mmol/L 06/19/2020 8:26 AM EST [facility] Anion Gap 12 3 - 16 mmol/L 06/19/2020 8:26 AM EST [facility] BUN 29(H) 7 - 25 mg/dL 06/19/2020 8:26 AM EST [facility] Creatinine 5.97(H) 0.60 - 1.30 mg/dL 06/19/2020 8:26 AM EST [facility] Glucose 147(H) 70 - 100 mg/dL 06/19/2020 8:26 AM EST [facility] Calcium 9.2 8.6 - 10.3 mg/dL 06/19/2020 8:26 AM EST [facility] Phosphorus 5.5(H) 2.1 - 4.7 mg/dL 06/19/2020 8:26 AM [facility] Albumin 3.2(L) 3.5 - 5.7 g/dL 06/19/2020 8:26 AM EST [facility] Osmolality, Calculated 285 278 - 305 mOsm/kg 06/19/2020 8:26 AM [facility] eGFR AA CKD-EPI 12 See note. 0 8:26 AM [facility] Comment: As of 2015 the estimated GFR is calculated from serum creatinine using the Chronic Kidney Disease Epidemiology Collaboration (CKD-EPI) equation in patients 18 years and older. ??The reference range is >60 mL/min/1.73m2. ??eGFR values greater than 90 will be reported as >90mL/min/1.73m2. Reference: Neftali [place], Marion CH, Ranulfo YL, Colten AF, 3rd, Quan HI, et. al. A new equation to estimate glomerular filtration rate. ??Jennifer [employer] Med. 2009:150(9):604-12 eGFR NONAA CKD-EPI 10 See note. 2019 8:26 AM EST [facility] Comment: As of 2015 the estimated GFR is calculated from serum creatinine using the Chronic Kidney Disease Epidemiology Collaboration (CKD-EPI) equation in patients 18 years and older. ??The reference range is >60 mL/min/1.73m2. ??eGFR values greater than 90 will be reported as >90mL/min/1.73m2. Reference: Neftali Castle, Marion CH, [place] YL, Colten AF, 3rd, Quan HI, et. al. A new equation to estimate glomerular filtration rate. ??Jennifer [employer] Med. 2009:150(9):604-12 Plasma specimen (specimen) 06/19/2020 6:02 AM EST 06/19/2020 8:03 AM EST Avril Calderon MD LAB BLOOD ORDERABLES Final Resul t [facility] [address] * (ABNORMAL) CBC (06/19/2020 6:02 AM EST) WBC 5.9 3.8 - 10.8 10E3/uL 06/19/2020 8:15 AM EST [facility] RBC 2.31(L) 4.20 - 5.80 10E6/uL 06/19/2020 8:15 AM EST [facility] Hemoglobin 7.3(L) 13.2 - 17.1 g/dL 06/19/2020 8:15 AM EST [facility] Hematocrit 22.5(L) 38.5 - 50.0 % 06/19/2020 8:15 AM EST [facility] MCV 97.6 80.0 - 100.0 fL 06/19/2020 8:15 AM EST [facility] MCH 31.5 27.0 - 33.0 pg 06/19/2020 8:15 AM EST [facility] MCHC 32.3 32.0 - 36.0 g/dL 06/19/2020 8:15 AM EST [facility] RDW 16.9(H) 11.0 - 15.0 % 06/19/2020 8:15 AM EST [facility] Platelets 254 140 - 400 10E3/uL 06/19/2020 8:15 AM EST [facility] MPV 7.1(L) 7.5 - 11.5 fL 06/19/2020 8:15 AM EST [facility] Whole blood specimen (specimen) 06/19/2020 6:02 AM EST 06/19/2020 8:01 AM EST Avril Calderon MD LAB BLOOD ORDERABLES Final Resul t Performing Organization Address [facility] Co de Phone Number [facility] [address] [place] [address]. [address] * (ABNORMAL) Cyclosporine level (06/19/2020 6:02 AM EST) Cyclosporine, Blood 39(L) 100 - 400 ng/mL 06/19/2020 11:29 AM EST [facility] Comment: Detection limit: ??30 ng/mL. ??Performed via chemiluminescent microparticle immunoassay on the [employer] i1000. Whole blood specimen (specimen) 06/19/2020 6:02 AM EST 06/19/2020 8:02 AM EST Jake Zavala MD LAB BLOOD ORDERABLES Final Res ult Performing Organization Address [facility] de Phone Number [address] * (ABNORMAL) POC Glucose Monitoring Device (06/18/2020 7:23 PM EST) POC Glucose Monitoring Device 214(H) 70 - 100 mg/dL 06/18/2020 7:24 PM EST [facility] Blood specimen (specimen) 06/18/2020 7:23 PM EST 06/18/2020 7:24 PM EST Ryan Soriano MD POINT OF CARE TEST ORDERA BLES Final Result Performing Organization Address [facility] Co de Phone Number [address] * (ABNORMAL) POC Glucose Monitoring Device (06/18/2020 6:20 PM EST) POC Glucose Monitoring Device 172(H) 70 - 100 mg/dL 06/18/2020 6:22 PM EST [facility] Blood specimen (specimen) 06/18/2020 6:20 PM EST 06/18/2020 6:21 PM EST Ryan Soriano MD POINT OF CARE TEST ORDERA BLES Final Result Performing Organization Address [facility]/ZIP Co de Phone Number [facility] [address] [facility]. [address] * (ABNORMAL) POC Glucose Monitoring Device (06/18/2020 2:39 PM EST) POC Glucose Monitoring Device 134(H) 70 - 100 mg/dL 06/18/2020 2:43 PM EST [facility] Blood specimen (specimen) 06/18/2020 2:39 PM EST 06/18/2020 2:43 PM EST Ryan Soriano MD POINT OF CARE TEST ORDERA BLES Final Result Performing Organization Address [facility] Co de Phone Number [facility] [address] [facility] * (ABNORMAL) POC Glucose Monitoring Device (06/17/2020 8:20 PM EST) POC Glucose Monitoring Device 138(H) 70 - 100 mg/dL 06/17/2020 8:31 PM EST [facility] Blood specimen (specimen) 06/17/2020 8:20 PM EST 06/17/2020 8:31 PM EST Ryan Soriano MD POINT OF CARE TEST ORDERA BLES Final Result Performing Organization Address [facility]/ZIP Co de Phone Number [facility] [address] [facility] * (ABNORMAL) Renal Function Panel w/EGFR (06/17/2020 12:20 PM EST) Sodium 136 133 - 146 mmol/L 06/17/2020 2:12 PM EST [facility] Potassium 4.3 3.5 - 5.3 mmol/L 06/17/2020 2:12 PM EST [facility] Chloride 100 98 - 110 mmol/L 06/17/2020 2:12 PM EST [facility] CO2 31 21 - 33 mmol/L 06/17/2020 2:12 PM EST [facility] Anion Gap 5 3 - 16 mmol/L 06/17/2020 2:12 PM EST [facility] BUN 20 7 - 25 mg/dL 06/17/2020 2:12 PM [facility] Creatinine 3.60(H) 0.60 - 1.30 mg/dL 06/17/2020 2:12 PM [facility] Glucose 122(H) 70 - 100 mg/dL 06/17/2020 2:12 PM EST [facility] Calcium 7.1(L) 8.6 - 10.3 mg/dL 06/17/2020 2:12 PM EST [facility] Phosphorus 3.0 2.1 - 4.7 mg/dL 06/17/2020 2:12 PM [facility] Albumin 1.8(L) 3.5 - 5.7 g/dL 06/17/2020 2:12 PM EST [facility] Osmolality, Calculated 286 278 - 305 mOsm/kg 06/17/2020 2:12 PM [facility] eGFR AA CKD-EPI 22 See note. 0 2:12 PM [facility] Comment: As of 2015 [...] equation to estimate glomerular filtration rate. ??Jennifer Baker [employer] Med. 2009:150(9):604-12 eGFR NONAA CKD-EPI 19 See note. 2019 2:12 PM [facility] Comment: As of 2015 [...] equation to estimate glomerular filtration rate. ??Jennifer Baker App[employer] Med. 2009:150(9):604-12 Plasma specimen (specimen) 06/17/2020 12:20 PM EST 06/17/2020 1:32 PM EST Arvil Calderon MD LAB BLOOD ORDERABLES Final Resul t Performing Organization Address City/[facility]/ZIP Co de Phone Number [facility] [address] [place] [address]. [address] * Vancomycin, trough (06/17/2020 5:44 AM EST) Vancomycin Tr 15.6 10.0 - 20.0 ug/mL 06/17/2020 8:21 AM EST [facility] Plasma specimen (specimen) 06/17/2020 5:44 AM EST 06/17/2020 7:31 AM EST Joan Urbina [facility] LAB BLOOD ORDERABLES Fi nal Result Performing Organization Address [facility]/ZIP Co de Phone Number [facility] [address] [place] [address]. [address] * (ABNORMAL) POC Glucose Monitoring Device (06/16/2020 8:30 PM EST) POC Glucose Monitoring Device 121(H) 70 - 100 mg/dL 06/16/2020 8:38 PM EST [facility] Blood specimen (specimen) 06/16/2020 8:30 PM EST 06/16/2020 8:38 PM EST Ryan Soriano MD POINT OF CARE TEST ORDERA BLES Final Result Performing Organization Address City/[facility]/ZIP Co de Phone Number [facility] [address] [place] [address]. [address] * (ABNORMAL) POC Glucose Monitoring Device (06/16/2020 8:51 AM EST) POC Glucose Monitoring Device 231(H) 70 - 100 mg/dL 06/16/2020 8:51 AM EST [facility] Blood specimen (specimen) 06/16/2020 8:51 AM EST 06/16/2020 8:51 AM EST us Ryan Soriano MD POINT OF CARE TEST ORDERA BLES Final Result [facility] [address] * (ABNORMAL) CBC (06/16/2020 5:55 AM EST) WBC 4.3 3.8 - 10.8 10E3/uL 06/16/2020 8:26 AM EST [facility] RBC 2.30(L) 4.20 - 5.80 10E6/uL 06/16/2020 8:26 AM EST [facility] Hemoglobin 7.2(L) 13.2 - 17.1 g/dL 06/16/2020 8:26 AM EST [facility] Hematocrit 21.7(L) 38.5 - 50.0 % 06/16/2020 8:26 AM EST [facility] MCV 94.4 80.0 - 100.0 fL 06/16/2020 8:26 AM EST [facility] MCH 31.1 27.0 - 33.0 pg 06/16/2020 8:26 AM EST [facility] MCHC 33.0 32.0 - 36.0 g/dL 06/16/2020 8:26 AM EST [facility] RDW 16.8(H) 11.0 - 15.0 % 06/16/2020 8:26 AM EST [facility] Platelets 223 140 - 400 10E3/uL 06/16/2020 8:26 AM EST [facility] MPV 7.2(L) 7.5 - 11.5 fL 06/16/2020 8:26 AM EST [facility] Whole blood specimen (specimen) 06/16/2020 5:55 AM EST 06/16/2020 8:11 AM EST us Yessy Molina MD LAB BLOOD ORDERABLES Fi nal Result [facility] [address] * (ABNORMAL) Basic metabolic panel (06/16/2020 5:55 AM EST) Sodium 135 133 - 146 mmol/L 06/16/2020 8:34 AM EST [facility] Potassium 5.0 3.5 - 5.3 mmol/L 06/16/2020 8:34 AM EST [facility] Chloride 97(L) 98 - 110 mmol/L 06/16/2020 8:34 AM EST [facility] CO2 30 21 - 33 mmol/L 06/16/2020 8:34 AM EST [facility] Anion Gap 8 3 - 16 mmol/L 06/16/2020 8:34 AM EST [facility] BUN 19 7 - 25 mg/dL 06/16/2020 8:34 AM EST [facility] Creatinine 4.71(H) 0.60 - 1.30 mg/dL 06/16/2020 8:34 AM EST [facility] Glucose 125(H) 70 - 100 mg/dL 06/16/2020 8:34 AM EST [facility] Calcium 8.8 8.6 - 10.3 mg/dL 06/16/2020 8:34 AM [facility] Osmolality, Calculated 284 278 - 305 mOsm/kg 06/16/2020 8:34 AM EST [facility] eGFR AA CKD-EPI 16 See note. 0 8:34 AM EST [facility] Comment: As of 2015 the estimated [...] equation to estimate glomerular filtration rate. ??Jennifer Baker [employer] Med. 2009:150(9):604-12 eGFR NONAA CKD-EPI 14 See note. 2019 8:34 AM EST [facility] Comment: As of 2015 the estimated [...] equation to estimate glomerular filtration rate. ??Jennifer Baker [employer] Med. 2009:150(9):604-12 Plasma specimen (specimen) 06/16/2020 5:55 AM EST 06/16/2020 8:05 AM EST Yessy Molina MD LAB BLOOD ORDERABLES Fi nal Result Performing Organization Address [facility]/ZIP Co de Phone Number [facility] [address] * (ABNORMAL) POC Glucose Monitoring Device (06/15/2020 8:22 PM EST) POC Glucose Monitoring Device 186(H) 70 - 100 mg/dL 06/15/2020 8:23 PM EST [facility] Blood specimen (specimen) 06/15/2020 8:22 PM EST 06/15/2020 8:23 PM EST Ryan Soriano MD POINT OF CARE TEST ORDERA BLES Final Result Performing Organization Address [facility] Co de Phone Number [facility] [address] * (ABNORMAL) POC Glucose Monitoring Device (06/15/2020 6:45 PM EST) POC Glucose Monitoring Device 103(H) 70 - 100 mg/dL 06/15/2020 6:51 PM EST [facility] Blood specimen (specimen) 06/15/2020 6:45 PM EST 06/15/2020 6:51 PM EST Ryan Soriano MD POINT OF CARE TEST ORDERA BLES Final Result Performing Organization Address [facility] Co de Phone Number [facility] [address] * (ABNORMAL) Basic metabolic panel (06/15/2020 6:30 PM EST) Sodium 137 133 - 146 mmol/L 06/15/2020 8:53 PM EST [facility] Potassium 3.4(L) 3.5 - 5.3 mmol/L 06/15/2020 8:53 PM EST [facility] Chloride 97(L) 98 - 110 mmol/L 06/15/2020 8:53 PM EST [facility] CO2 32 21 - 33 mmol/L 06/15/2020 8:53 PM EST [facility] Anion Gap 8 3 - 16 mmol/L 06/15/2020 8:53 PM EST [facility] BUN 10 7 - 25 mg/dL 06/15/2020 8:53 PM EST [facility] Creatinine 2.15(H) 0.60 - 1.30 mg/dL 06/15/2020 8:53 PM EST [facility] Glucose 94 70 - 100 mg/dL 06/15/2020 8:53 PM EST [facility] Calcium 8.2(L) 8.6 - 10.3 mg/dL 06/15/2020 8:53 PM EST [facility] Osmolality, Calculated 283 278 - 305 mOsm/kg 06/15/2020 8:53 PM EST [facility] eGFR AA CKD-EPI 41 See note. 0 8:53 PM EST [facility] Comment: As of 2015 the estimated [...] equation to estimate glomerular filtration rate. ??Jennifer Baker Apprentice Med. 2009:150(9):604-12 eGFR NONAA CKD-EPI 36 See note. 2019 8:53 PM EST [facility] Comment: As of 2015 the estimated [...] equation to estimate glomerular filtration rate. ??Jennifer Baker App[employer]ice Med. 2009:150(9):604-12 Plasma specimen (specimen) 06/15/2020 6:30 PM EST 06/15/2020 8:00 PM EST us Yessy Molina MD LAB BLOOD ORDERABLES Fi nal Result [facility] [address] * (ABNORMAL) Renal Function Panel w/EGFR (06/15/2020 2:14 PM EST) Sodium 132(L) 133 - 146 mmol/L 06/15/2020 4:25 PM EST [facility] Potassium 6.9(HH) 3.5 - 5.3 mmol/L 06/15/2020 4:25 PM EST [facility] Comment:Critical Result K:6. 9 Called to and read back by: PAULA HU RN at: 06/15/2020 16:25:08 by:SHONDA Chloride 94(L) 98 - 110 mmol/L 06/15/2020 4:25 PM EST [facility] CO2 29 21 - 33 mmol/L 06/15/2020 4:25 PM EST [facility] Anion Gap 9 3 - 16 mmol/L 06/15/2020 4:25 PM EST [facility] BUN 35(H) 7 - 25 mg/dL 06/15/2020 4:25 PM EST [facility] Creatinine 5.87(H) 0.60 - 1.30 mg/dL 06/15/2020 4:25 PM EST [facility] Glucose 99 70 - 100 mg/dL 06/15/2020 4:25 PM EST [facility] Calcium 8.5(L) 8.6 - 10.3 mg/dL 06/15/2020 4:25 PM EST [facility] Phosphorus 5.8(H) 2.1 - 4.7 mg/dL 06/15/2020 4:25 PM EST [facility] Albumin 2.9(L) 3.5 - 5.7 g/dL 06/15/2020 4:25 PM EST [facility] Osmolality, Calculated 282 278 - 305 mOsm/kg 06/15/2020 4:25 PM EST [facility] eGFR AA CKD-EPI 12 See note. 0 4:25 PM EST [facility] Comment: As of 2015 the estimated [...] equation to estimate glomerular filtration rate. ??Jennifer Baker Apprentice Med. 2009:150(9):604-12 eGFR NONAA CKD-EPI 11 See note. 2019 4:25 PM EST [facility] Comment: As of 2015 the estimated [...] equation to estimate glomerular filtration rate. ??Jennifer Baker Apprentice Med. 2009:150(9):604-12 Serum specimen (specimen) 06/15/2020 2:14 PM EST 06/15/2020 3:56 PM EST us Avril Calderon MD LAB BLOOD ORDERABLES Final Resul t [facility] [address] [place] [address], [facility] * (ABNORMAL) POC Glucose Monitoring Device (06/15/2020 10:56 AM EST) POC Glucose Monitoring Device 157(H) 70 - 100 mg/dL 06/15/2020 10:57 AM EST [facility] Blood specimen (specimen) 06/15/2020 10:56 AM EST 06/15/2020 10:57 AM EST Ryan Soriano MD POINT OF CARE TEST ORDERA BLES Final Result Performing Organization Address [facility] Co de Phone Number [facility] [address] * (ABNORMAL) Occult Blood (06/15/2020 9:10 AM EST) Occult Blood, Stool #1 Positive(A ) Negative 06/15/2020 1:39 PM EST [facility] Stool specimen (specimen) FECES / Unknown 06/15/2020 9:10 AM EST 06/15/2020 11:52 AM EST Comment:F Yessy Molina MD BODY FLUIDS AND STOOLS ORDERABLES Final Result Performing Organization Address [facility] Co de Phone Number [facility] [address] * (ABNORMAL) Hepatic Function Panel (06/15/2020 5:38 AM EST) Total Bilirubin 0.4 0.0 - 1.5 mg/dL 06/15/2020 7:50 AM EST [facility] Bilirubin, Direct 0.09 0.00 - 0.40 mg/dL 06/15/2020 7:50 AM EST [facility] AST 11(L) 13 - 39 U/L 06/15/2020 7:50 AM EST [facility] ALT 6(L) 7 - 52 U/L 06/15/2020 7:50 AM EST [facility] Alkaline Phosphatase 63 36 - 125 U/L 06/15/2020 7:50 AM EST [facility] Total Protein 6.6 6.4 - 8.9 g/dL 06/15/2020 7:50 AM EST [facility] Albumin 3.3(L) 3.5 - 5.7 g/dL 06/15/2020 7:50 AM EST [facility] Bilirubin, Indirect 0.31 0.00 - 1.10 mg/dL 06/15/2020 7:50 AM EST [facility] Plasma specimen (specimen) 06/15/2020 5:38 AM EST 06/15/2020 7:24 AM EST us Jake Zavala MD LAB BLOOD ORDERABLES Final Res ult [facility] [address] [place] [address], [facility] * (ABNORMAL) Renal Function Panel w/EGFR (06/15/2020 5:38 AM EST) Sodium 132(L) 133 - 146 mmol/L 06/15/2020 7:50 AM EST [facility] Potassium 6.5(H) 3.5 - 5.3 mmol/L 06/15/2020 7:50 AM EST [facility] Chloride 94(L) 98 - 110 mmol/L 06/15/2020 7:50 AM EST [facility] CO2 29 21 - 33 mmol/L 06/15/2020 7:50 AM EST [facility] Anion Gap 9 3 - 16 mmol/L 06/15/2020 7:50 AM EST [facility] BUN 30(H) 7 - 25 mg/dL 06/15/2020 7:50 AM EST [facility] Creatinine 6.57(H) 0.60 - 1.30 mg/dL 06/15/2020 7:50 AM EST [facility] Glucose 139(H) 70 - 100 mg/dL 06/15/2020 7:50 AM EST [facility] Calcium 8.8 8.6 - 10.3 mg/dL 06/15/2020 7:50 AM EST [facility] Phosphorus 6.1(H) 2.1 - 4.7 mg/dL 06/15/2020 7:50 AM EST [facility] Albumin 3.3(L) 3.5 - 5.7 g/dL 06/15/2020 7:50 AM EST [facility] Osmolality, Calculated 282 278 - 305 mOsm/kg 06/15/2020 7:50 AM EST [facility] eGFR AA CKD-EPI 11 See note. 0 7:50 AM EST [facility] Comment: As of 2015 the estimated [...] equation to estimate glomerular filtration rate. ??Jennifer Baker App[employer]ice Med. 2009:150(9):604-12 eGFR NONAA CKD-EPI 9 See note. 2019 7:50 AM EST [facility] Comment: As of 2015 the estimated [...] equation to estimate glomerular filtration rate. ??Jennifer Baker App[employer]ice Med. 2009:150(9):604-12 Plasma specimen (specimen) 06/15/2020 5:38 AM EST 06/15/2020 7:24 AM EST us Avril Calderon MD LAB BLOOD ORDERABLES Final Resul t [facility] [address] [id number] * (ABNORMAL) CBC (06/15/2020 5:38 AM EST) WBC 6.9 3.8 - 10.8 10E3/uL 06/15/2020 8:08 AM EST [facility] RBC 2.42(L) 4.20 - 5.80 10E6/uL 06/15/2020 8:08 AM EST [facility] Hemoglobin 7.8(L) 13.2 - 17.1 g/dL 06/15/2020 8:08 AM EST [facility] Hematocrit 22.8(L) 38.5 - 50.0 % 06/15/2020 8:08 AM EST [facility] MCV 94.2 80.0 - 100.0 fL 06/15/2020 8:08 AM EST [facility] MCH 32.4 27.0 - 33.0 pg 06/15/2020 8:08 AM EST [facility] MCHC 34.4 32.0 - 36.0 g/dL 06/15/2020 8:08 AM EST [facility] RDW 16.5(H) 11.0 - 15.0 % 06/15/2020 8:08 AM EST [facility] Platelets 271 140 - 400 10E3/uL 06/15/2020 8:08 AM EST [facility] MPV 7.1(L) 7.5 - 11.5 fL 06/15/2020 8:08 AM EST [facility] Whole blood specimen (specimen) 06/15/2020 5:38 AM EST 06/15/2020 7:24 AM EST Avril Calderon MD LAB BLOOD ORDERABLES Final Resul t [facility] [address] * (ABNORMAL) C-reactive protein (06/15/2020 5:38 AM EST) CRP 74.5(H) 1.0 - 10.0 mg/L 06/15/2020 7:50 AM EST [facility] Plasma specimen (specimen) 06/15/2020 5:38 AM EST 06/15/2020 7:24 AM EST us Jake Zavala MD LAB BLOOD ORDERABLES Final Res ult [facility] [address] * (ABNORMAL) Sed Rate (06/15/2020 5:38 AM EST) Sed Rate 25(H) 0 - 15 mm/hr 06/15/2020 8:48 AM EST [facility] Whole blood specimen (specimen) 06/15/2020 5:38 AM EST 06/15/2020 7:24 AM EST us Jake Zavala MD LAB BLOOD ORDERABLES Final Res ult Performing Organization Address [facility]/ZIP Co de Phone Number [facility] [address] [facility] * Vancomycin, trough (06/15/2020 5:38 AM EST) Vancomycin Tr 15.9 10.0 - 20.0 ug/mL 06/15/2020 7:50 AM EST [facility] Plasma specimen (specimen) 06/15/2020 5:38 AM EST 06/15/2020 7:24 AM EST us Kelsie Scanlon PharmD LAB BLOOD ORDERABLES Final R esult Performing Organization Address [facility] Co de Phone Number [facility] [address] [facility]. [address] * (ABNORMAL) POC Glucose Monitoring Device (06/14/2020 8:12 PM EST) POC Glucose Monitoring Device 143(H) 70 - 100 mg/dL 06/14/2020 8:23 PM EST [facility] Blood specimen (specimen) 06/14/2020 8:12 PM EST 06/14/2020 8:22 PM EST us Ryan Soriano MD POINT OF CARE TEST ORDERA BLES Final Result Performing Organization Address City/[facility]/ZIP Co de Phone Number [facility] [address] [facility]. [address] * (ABNORMAL) POC Glucose Monitoring Device (06/14/2020 4:55 PM EST) POC Glucose Monitoring Device 152(H) 70 - 100 mg/dL 06/14/2020 4:56 PM EST [facility] Blood specimen (specimen) 06/14/2020 4:55 PM EST 06/14/2020 4:56 PM EST us Ryan Soriano MD POINT OF CARE TEST ORDERA BLES Final Result Performing Organization Address [facility]/ZIP Co de Phone Number [facility] [address] [place] [address]. [address] * (ABNORMAL) POC Glucose Monitoring Device (06/14/2020 11:17 AM EST) POC Glucose Monitoring Device 147(H) 70 - 100 mg/dL 06/14/2020 11:18 AM EST [facility] Blood specimen (specimen) 06/14/2020 11:17 AM EST 06/14/2020 11:17 AM EST Ryan Soriano MD POINT OF CARE TEST ORDERA BLES Final Result Performing Organization Address [facility] de Phone Number [address] * (ABNORMAL) POC Glucose Monitoring Device (06/14/2020 8:51 AM EST) POC Glucose Monitoring Device 134(H) 70 - 100 mg/dL 06/14/2020 8:51 AM EST [facility] Blood specimen (specimen) 06/14/2020 8:51 AM EST 06/14/2020 8:51 AM EST Ryan Soriano MD POINT OF CARE TEST ORDERA BLES Final Result Performing Organization Address [facility] Co de Phone Number [facility] [address] [place] [address]. [address] * (ABNORMAL) POC Glucose Monitoring Device (06/14/2020 2:01 AM EST) POC Glucose Monitoring Device 136(H) 70 - 100 mg/dL 06/14/2020 1:56 AM EDT [facility] Blood specimen (specimen) 06/14/2020 2:01 AM EST 06/14/2020 1:56 AM EDT Ryan Soriano MD POINT OF CARE TEST ORDERA BLES Final Result Performing Organization Address [facility] Co de Phone Number [facility] [address] * (ABNORMAL) POC Glucose Monitoring Device (06/13/2020 5:09 PM EDT) POC Glucose Monitoring Device 152(H) 70 - 100 mg/dL 06/13/2020 5:27 PM EDT [facility] Blood specimen (specimen) 06/13/2020 5:09 PM EDT 06/13/2020 5:27 PM EDT Ryan Soriano MD POINT OF CARE TEST ORDERA BLES Final Result Performing Organization Address [facility] Co de Phone Number [facility] [address] * (ABNORMAL) POC Glucose Monitoring Device (06/13/2020 12:29 PM EDT) POC Glucose Monitoring Device 135(H) 70 - 100 mg/dL 06/13/2020 12:30 PM EDT [facility] Blood specimen (specimen) 06/13/2020 12:29 PM EDT 06/13/2020 12:30 PM EDT Ryan Soriano MD POINT OF CARE TEST ORDERA BLES Final Result Performing Organization Address [facility] Co de Phone Number [facility] [address] * X-ray Hip Right 2-3 vws incl AP Pelvis (06/13/2020 9:26 AM EDT) Anatomical Region Laterality Modality Hip, Pelvis Radiographic Sobia ging 06/13/2020 9:08 AM EDT Impressions 06/13/2020 10:42 AM EDT IMPRESSION: No acute osseous findings. Report Verified by: Jimmy Velasquez MD at 06/13/2020 10:42 AM EDT Narrative 06/13/2020 10:42 AM EDT EXAM: XR HIP RIGHT 2-3 VIEWS INCLUDING AP PELVIS INDICATION: Pain, ?? COMPARISON: CT dated 07/21/2019. TECHNIQUE: 3 views of the pelvis and right hip FINDINGS: Hip joint spaces are preserved. No acute fracture or malalignment is identified. Procedure Note Jimmy Velasquez MD - 06/13/2020 EXAM: XR HIP RIGHT 2-3 VIEWS INCLUDING AP PELVIS INDICATION: Pain, COMPARISON: CT dated 07/21/2019. TECHNIQUE: 3 views of the pelvis and right hip FINDINGS: Hip joint spaces are preserved. No acute fracture or malalignment isidentified. IMPRESSION: No acute osseous findings. Report Verified by: Jimmy Velasquez MD at 06/13/2020 10:42 AM EDT Jake Zavala MD IMG DIAGNOSTIC IMAGING ORDERAB LES Final Result * (ABNORMAL) POC Glucose Monitoring Device (06/13/2020 8:03 AM EDT) POC Glucose Monitoring Device 194(H) 70 - 100 mg/dL 06/13/2020 8:04 AM EDT [facility] Blood specimen (specimen) 06/13/2020 8:03 AM EDT 06/13/2020 8:03 AM EDT Ryan Soriano MD POINT OF CARE TEST ORDERA BLES Final Result [facility] [address] [place] [address], [facility] * (ABNORMAL) Differential (06/13/2020 6:38 AM EDT) Myelocytes Relative 2.0(H) 0.0 - 0.0 % 06/13/2020 4:36 PM EDT [facility] Metamyelocytes Relative 1.0(H) 0.0 - 0.0 % 06/13/2020 4:36 PM EDT [facility] Bands Relative 1.0 0.0 - 9.0 % 06/13/2020 4:36 PM EDT [facility] Neutrophils Relative 68.0 40.0 - 80.0 % 06/13/2020 4:36 PM EDT [facility] Lymphocytes Relative 18.0 15.0 - 45.0 % 06/13/2020 4:36 PM EDT [facility] Monocytes Relative 8.0 0.0 - 12.0 % 06/13/2020 4:36 PM EDT [facility] Eosinophils Relative 2.0 0.0 - 8.0 % 06/13/2020 4:36 PM EDT [facility] Basophils Relative 0.0 0.0 - 1.0 % 06/13/2020 4:36 PM EDT [facility] Neutrophils Absolute 2,856 1,500 - 7,800 /uL 06/13/2020 4:36 PM EDT [facility] Bands Absolute 42 0 - 750 /uL 06/13/2020 4:36 PM EDT [facility] Metamyelocytes Absolute 42(H) 0 - 0 /uL 06/13/2020 4:36 PM EDT [facility] Myelocytes Absolute 84(H) 0 - 0 /uL 06/13/2020 4:36 PM EDT [facility] Lymphocytes Absolute 756(L) 850 - 3,900 /uL 06/13/2020 4:36 PM EDT [facility] Monocytes Absolute 336 200 - 950 /uL 06/13/2020 4:36 PM EDT [facility] Eosinophils Absolute 84 15 - 500 /uL 06/13/2020 4:36 PM EDT [facility] Basophils Absolute 0 0 - 200 /uL 06/13/2020 4:36 PM EDT [facility] PLT Morphology Platelet morphology appears normal 06/13/2020 4:36 PM EDT [facility] Whole blood specimen (specimen) 06/13/2020 6:38 AM EDT 06/13/2020 9:01 AM EDT Narrative [facility] - 06/13/2020 4:36 PM EDT Manual WBC differential performed per review criteria approved by the medical supply technician. us Nahum Arrington DO LAB BLOOD ORDERABLES Final Resu lt [facility] [address] [place] [address], [facility] * (ABNORMAL) CBC (06/13/2020 6:38 AM EDT) WBC 4.2 3.8 - 10.8 10E3/uL 06/13/2020 9:41 AM EDT [facility] RBC 2.69(L) 4.20 - 5.80 10E6/uL 06/13/2020 9:41 AM EDT [facility] Hemoglobin 8.1(L) 13.2 - 17.1 g/dL 06/13/2020 9:41 AM EDT [facility] Hematocrit 25.1(L) 38.5 - 50.0 % 06/13/2020 9:41 AM EDT [facility] MCV 93.2 80.0 - 100.0 fL 06/13/2020 9:41 AM EDT [facility] MCH 30.2 27.0 - 33.0 pg 06/13/2020 9:41 AM EDT [facility] MCHC 32.4 32.0 - 36.0 g/dL 06/13/2020 9:41 AM EDT [facility] RDW 16.2(H) 11.0 - 15.0 % 06/13/2020 9:41 AM EDT [facility] Platelets 224 140 - 400 10E3/uL 06/13/2020 9:41 AM EDT [facility] MPV 7.5 7.5 - 11.5 fL 06/13/2020 9:41 AM EDT [facility] Whole blood specimen (specimen) 06/13/2020 6:38 AM EDT 06/13/2020 9:01 AM EDT us Nahum Arrington DO LAB BLOOD ORDERABLES Final Resu lt [facility] [address] * Prepare RBC, leukoreduced, 1 Units (06/13/2020 6:30 AM EDT) Product Code K6480P47 HCLL Unit Number [id number] HCLL Dispense Status Presumed Transfused_PT HCLL Blood Expiration Date [id number] HCLL Coding System [id number] HCLL Specimen from blood bag from blood product (specimen) us Jake Zavala MD BLOOD BANK PRODUCT ORDERABLES Final Result [facility] * (ABNORMAL) POC Glucose Monitoring Device (06/12/2020 9:17 PM EDT) POC Glucose Monitoring Device 211(H) 70 - 100 mg/dL 06/12/2020 9:18 PM EDT [facility] Blood specimen (specimen) 06/12/2020 9:17 PM EDT 06/12/2020 9:18 PM EDT Ryan Soriano MD POINT OF CARE TEST ORDERA BLES Final Result Performing Organization Address [facility] de Phone Number [facility] [address] [facility] * (ABNORMAL) POC Glucose Monitoring Device (06/12/2020 7:03 PM EDT) POC Glucose Monitoring Device 116(H) 70 - 100 mg/dL 06/12/2020 7:13 PM EDT [facility] Blood specimen (specimen) 06/12/2020 7:03 PM EDT 06/12/2020 7:12 PM EDT Ryan Soriano MD POINT OF CARE TEST ORDERA BLES Final Result Performing Organization Address [facility] de Phone Number [facility] [address] [facility] * Transfuse RBC (06/12/2020 5:38 PM EDT) Jake Zavala MD NURSING TREATMENT ORDERABLES - BLOOD ADMIN Final Result Performing Organization Address [facility] Co de Phone Number EXTERNAL * Transfuse RBC Transfusion Rate: Per dept routine, 1 Units (06/12/2020 5:38 PM EDT) us Jake Zavala MD NURSING TREATMENT ORDERABLES - BLOOD ADMIN Final Result Performing Organization Address [facility] de Phone Number EXTERNAL * (ABNORMAL) POC Glucose Monitoring Device (06/12/2020 12:49 PM EDT) POC Glucose Monitoring Device 154(H) 70 - 100 mg/dL 06/12/2020 12:50 PM EDT [facility] Blood specimen (specimen) 06/12/2020 12:49 PM EDT 06/12/2020 12:49 PM EDT Ryan Soriano MD POINT OF CARE TEST ORDERA BLES Final Result Performing Organization Address [facility] de Phone Number [facility] [address] * (ABNORMAL) POC Glucose Monitoring Device (06/12/2020 9:14 AM EDT) POC Glucose Monitoring Device 177(H) 70 - 100 mg/dL 06/12/2020 9:32 AM EDT [facility] Blood specimen (specimen) 06/12/2020 9:14 AM EDT 06/12/2020 9:31 AM EDT Ryan Soriano MD POINT OF CARE TEST ORDERA BLES Final Result Performing Organization Address [facility] de Phone Number [facility] [address] * (ABNORMAL) Renal Function Panel w/EGFR (06/12/2020 5:45 AM EDT) Sodium 134 133 - 146 mmol/L 06/12/2020 8:07 AM EDT [facility] Potassium 5.6(H) 3.5 - 5.3 mmol/L 06/12/2020 8:07 AM EDT [facility] Chloride 97(L) 98 - 110 mmol/L 06/12/2020 8:07 AM EDT [facility] CO2 28 21 - 33 mmol/L 06/12/2020 8:07 AM EDT [facility] Anion Gap 9 3 - 16 mmol/L 06/12/2020 8:07 AM EDT [facility] BUN 24 7 - 25 mg/dL 06/12/2020 8:07 AM EDT [facility] Creatinine 5.96(H) 0.60 - 1.30 mg/dL 06/12/2020 8:07 AM EDT [facility] Glucose 104(H) 70 - 100 mg/dL 06/12/2020 8:07 AM EDT [facility] Calcium 8.6 8.6 - 10.3 mg/dL 06/12/2020 8:07 AM EDT [facility] Phosphorus 4.3 2.1 - 4.7 mg/dL 06/12/2020 8:07 AM EDT [facility] Albumin 2.9(L) 3.5 - 5.7 g/dL 06/12/2020 8:07 AM EDT [facility] Osmolality, Calculated 282 278 - 305 mOsm/kg 06/12/2020 8:07 AM EDT [facility] eGFR AA CKD-EPI 12 See note. 0 8:07 AM EDT [facility] Comment: As of 2015 the estimated [...] equation to estimate glomerular filtration rate. ??[employer]. 2009:150(9):604-12 eGFR NONAA CKD-EPI 10 See note. 2019 8:07 AM EDT [facility] Comment: As of 2015 the estimated [...] equation to estimate glomerular filtration rate. ??Jennifer [employer]. 2009:150(9):604-12 Plasma specimen (specimen) 06/12/2020 5:45 AM EDT 06/12/2020 7:31 AM EDT us Avril Calderon MD LAB BLOOD ORDERABLES Final Resul t [facility] [address] * (ABNORMAL) CBC (06/12/2020 5:45 AM EDT) WBC 5.0 3.8 - 10.8 10E3/uL 06/12/2020 7:45 AM EDT [facility] RBC 2.29(L) 4.20 - 5.80 10E6/uL 06/12/2020 7:45 AM EDT [facility] Hemoglobin 7.0(L) 13.2 - 17.1 g/dL 06/12/2020 7:45 AM EDT [facility] Hematocrit 21.5(L) 38.5 - 50.0 % 06/12/2020 7:45 AM EDT [facility] MCV 93.8 80.0 - 100.0 fL 06/12/2020 7:45 AM EDT [facility] MCH 30.6 27.0 - 33.0 pg 06/12/2020 7:45 AM EDT [facility] MCHC 32.7 32.0 - 36.0 g/dL 06/12/2020 7:45 AM EDT [facility] RDW 16.0(H) 11.0 - 15.0 % 06/12/2020 7:45 AM EDT [facility] Platelets 226 140 - 400 10E3/uL 06/12/2020 7:45 AM EDT [facility] MPV 7.5 7.5 - 11.5 fL 06/12/2020 7:45 AM EDT [facility] Whole blood specimen (specimen) 06/12/2020 5:45 AM EDT 06/12/2020 7:31 AM EDT us Avril Calderon MD LAB BLOOD ORDERABLES Final Resul t [facility] [address] * (ABNORMAL) Cyclosporine level (06/12/2020 5:45 AM EDT) Cyclosporine, Blood 68(L) 100 - 400 ng/mL 06/12/2020 1:06 PM EDT [facility] Comment: Detection limit: ??30 ng/mL. ??Performed via chemiluminescent microparticle immunoassay on the [employer] i1000. Whole blood specimen (specimen) 06/12/2020 5:45 AM EDT 06/12/2020 7:31 AM EDT us Jake Zavala MD LAB BLOOD ORDERABLES Final Res ult Performing Organization Address City/[facility]/ZIP Co de Phone Number [facility] [address] [facility] * Vancomycin, trough (06/12/2020 5:45 AM EDT) Vancomycin Tr 17.1 10.0 - 20.0 ug/mL 06/12/2020 8:06 AM EDT [facility] Plasma specimen (specimen) 06/12/2020 5:45 AM EDT 06/12/2020 7:31 AM EDT us Kelsie ColmenaresD LAB BLOOD ORDERABLES Final R esult Performing Organization Address [facility] Co de Phone Number [facility] [address] [facility] * (ABNORMAL) POC Glucose Monitoring Device (06/11/2020 9:17 PM EDT) POC Glucose Monitoring Device 115(H) 70 - 100 mg/dL 06/11/2020 9:37 PM EDT [facility] Blood specimen (specimen) 06/11/2020 9:17 PM EDT 06/11/2020 9:37 PM EDT us Ryan Soriano MD POINT OF CARE TEST ORDERA BLES Final Result Performing Organization Address [facility] Co de Phone Number [facility] [address] [facility] * (ABNORMAL) POC Glucose Monitoring Device (06/11/2020 5:23 PM EDT) POC Glucose Monitoring Device 151(H) 70 - 100 mg/dL 06/11/2020 5:24 PM EDT [facility] Blood specimen (specimen) 06/11/2020 5:23 PM EDT 06/11/2020 5:24 PM EDT Ryan Soriano MD POINT OF CARE TEST ORDERA BLES Final Result Performing Organization Address City/[facility]/ZIP Co de Phone Number [facility] [address] [facility] * (ABNORMAL) POC Glucose Monitoring Device (06/11/2020 12:23 PM EDT) POC Glucose Monitoring Device 133(H) 70 - 100 mg/dL 06/11/2020 12:25 PM EDT [facility] Blood specimen (specimen) 06/11/2020 12:23 PM EDT 06/11/2020 12:24 PM EDT Ryan Soriano MD POINT OF CARE TEST ORDERA BLES Final Result Performing Organization Address [facility] Co de Phone Number [facility] [address] [facility] * (ABNORMAL) POC Glucose Monitoring Device (06/11/2020 8:51 AM EDT) POC Glucose Monitoring Device 172(H) 70 - 100 mg/dL 06/11/2020 8:53 AM EDT [facility] Blood specimen (specimen) 06/11/2020 8:51 AM EDT 06/11/2020 8:53 AM EDT Ryan Soriano MD POINT OF CARE TEST ORDERA BLES Final Result Performing Organization Address City/[facility]/ZIP Co de Phone Number [facility] [address] [facility] * Antibody identification (06/10/2020 11:08 PM EDT) Antibody Id. #1 Anti-C 06/10/2020 11:08 PM EDT [facility] Antibody Id. #2 Anti-D 06/10/2020 11:08 PM EDT [facility] Antibody Id. #3 Warm Auto Antibody 06/10/2020 11:08 PM EDT [facility] Blood specimen (specimen) 06/10/2020 11:08 PM EDT 06/10/2020 11:08 PM EDT Jake Zavala MD BLOOD BANK TEST ORDERABLES Fin al Result [facility] [address] * Elution & antibody identification, RBC (06/10/2020 11:07 PM EDT) Elution Result 1 Warm Auto Antibody 06/10/2020 11:07 PM EDT [facility] Blood specimen (specimen) 06/10/2020 11:07 PM EDT 06/10/2020 11:07 PM EDT Jake Zavala MD BLOOD BANK TEST ORDERABLES Fin al Result Performing Organization Address City/[facility]/ZIP Co de Phone Number [facility] [address] * ELIUD Anti-IgG (06/10/2020 11:05 PM EDT) ELIUD IgG Positive 06/10/2020 11:05 PM EDT [facility] Blood specimen (specimen) 06/10/2020 11:05 PM EDT 06/10/2020 11:05 PM EDT Jake Zavala MD BLOOD BANK TEST ORDERABLES Fin al Result [facility] [address] * ABO/Rh (06/10/2020 10:43 PM EDT) ABO Grouping O 06/10/2020 10:43 PM EDT [facility] Rh Type Negative 06/10/2020 10:43 PM EDT [facility] Blood specimen (specimen) 06/10/2020 10:43 PM EDT 06/10/2020 10:43 PM EDT Attending Provider Unknown BLOOD BANK TEST ORDER ASHISH Final Result Performing Organization Address [facility] Co de Phone Number [facility] [address] [facility] * (ABNORMAL) POC Glucose Monitoring Device (06/10/2020 8:59 PM EDT) POC Glucose Monitoring Device 178(H) 70 - 100 mg/dL 06/10/2020 9:00 PM EDT [facility] Blood specimen (specimen) 06/10/2020 8:59 PM EDT 06/10/2020 9:00 PM EDT Ryan Soriano MD POINT OF CARE TEST ORDERA BLES Final Result Performing Organization Address [facility] Co de Phone Number [facility] [address] [facility] * (ABNORMAL) POC Glucose Monitoring Device (06/10/2020 4:42 PM EDT) POC Glucose Monitoring Device 153(H) 70 - 100 mg/dL 06/10/2020 4:42 PM EDT [facility] Blood specimen (specimen) 06/10/2020 4:42 PM EDT 06/10/2020 4:42 PM EDT Ryan Soriano MD POINT OF CARE TEST ORDERA BLES Final Result Performing Organization Address [facility] Co de Phone Number [facility] [address] [facility] * Antibody Screen (06/10/2020 3:25 PM EDT) Antibody Screen Positive 06/10/2020 11:03 PM EDT [facility] Blood specimen (specimen) 06/10/2020 3:25 PM EDT 06/10/2020 6:00 PM EDT Narrative [facility] - 06/10/2020 11:03 PM EDT Testing performed by [facility] Transfusion [facility] Jake Zavala MD BLOOD BANK TEST ORDERABLES Fin al Result [facility] [address] * ABO/Rh (06/10/2020 3:25 PM EDT) ABO Grouping O 06/10/2020 10:44 PM EDT [facility] Rh Type Negative 06/10/2020 10:44 PM EDT [facility] Blood specimen (specimen) 06/10/2020 3:25 PM EDT 06/10/2020 6:00 PM EDT Jake Zavala MD BLOOD BANK TEST ORDERABLES Fin al Result Performing Organization Address City/[facility] Co de Phone Number [facility] [address] * (ABNORMAL) Renal Function Panel w/EGFR (06/10/2020 3:25 PM EDT) Sodium 134 133 - 146 mmol/L 06/10/2020 7:04 PM EDT [facility] Potassium 5.1 3.5 - 5.3 mmol/L 06/10/2020 7:04 PM EDT [facility] Chloride 97(L) 98 - 110 mmol/L 06/10/2020 7:04 PM EDT [facility] CO2 27 21 - 33 mmol/L 06/10/2020 7:04 PM EDT [facility] Anion Gap 10 3 - 16 mmol/L 06/10/2020 7:04 PM EDT [facility] BUN 35(H) 7 - 25 mg/dL 06/10/2020 7:04 PM EDT [facility] Creatinine 7.90(H) 0.60 - 1.30 mg/dL 06/10/2020 7:04 PM EDT [facility] Glucose 135(H) 70 - 100 mg/dL 06/10/2020 7:04 PM EDT [facility] Calcium 8.4(L) 8.6 - 10.3 mg/dL 06/10/2020 7:04 PM EDT [facility] Phosphorus 5.3(H) 2.1 - 4.7 mg/dL 06/10/2020 7:04 PM EDT [facility] Albumin 2.9(L) 3.5 - 5.7 g/dL 06/10/2020 7:04 PM EDT [facility] Osmolality, Calculated 288 278 - 305 mOsm/kg 06/10/2020 7:04 PM EDT [facility] eGFR AA CKD-EPI 9 See note. 0 7:04 PM EDT [facility] Comment: As of 2015 the estimated [...] equation to estimate glomerular filtration rate. ??[employer]. 2009:150(9):604-12 eGFR NONAA CKD-EPI 7 See note. 2019 7:04 PM EDT [facility] Comment: As of 2015 the estimated [...] equation to estimate glomerular filtration rate. ??Jennifer [employer]. 2009:150(9):604-12 Plasma specimen (specimen) 06/10/2020 3:25 PM EDT 06/10/2020 5:31 PM EDT us Avril Calderon MD LAB BLOOD ORDERABLES Final Resul t [facility] [address] * (ABNORMAL) CBC (06/10/2020 3:25 PM EDT) WBC 5.8 3.8 - 10.8 10E3/uL 06/10/2020 5:39 PM EDT [facility] RBC 2.23(L) 4.20 - 5.80 10E6/uL 06/10/2020 5:39 PM EDT [facility] Hemoglobin 6.9(L) 13.2 - 17.1 g/dL 06/10/2020 5:39 PM EDT [facility] Hematocrit 20.8(L) 38.5 - 50.0 % 06/10/2020 5:39 PM EDT [facility] MCV 93.1 80.0 - 100.0 fL 06/10/2020 5:39 PM EDT [facility] MCH 31.0 27.0 - 33.0 pg 06/10/2020 5:39 PM EDT [facility] MCHC 33.3 32.0 - 36.0 g/dL 06/10/2020 5:39 PM EDT [facility] RDW 15.7(H) 11.0 - 15.0 % 06/10/2020 5:39 PM EDT [facility] Platelets 283 140 - 400 10E3/uL 06/10/2020 5:39 PM EDT [facility] MPV 8.2 7.5 - 11.5 fL 06/10/2020 5:39 PM EDT [facility] Whole blood specimen (specimen) 06/10/2020 3:25 PM EDT 06/10/2020 5:31 PM EDT us Avril Calderon MD LAB BLOOD ORDERABLES Final Resul t [facility] [address] * (ABNORMAL) PTH, Intact (06/10/2020 3:25 PM EDT) PTH 574.0(H) 12.0 - 88.0 pg/mL 06/10/2020 7:00 PM EDT [facility] Serum specimen (specimen) 06/10/2020 3:25 PM EDT 06/10/2020 5:29 PM EDT Avril Calderon MD LAB BLOOD ORDERABLES Final Resul t Performing Organization Address [facility] Co de Phone Number [facility] [address] * (ABNORMAL) POC Glucose Monitoring Device (06/10/2020 11:05 AM EDT) POC Glucose Monitoring Device 199(H) 70 - 100 mg/dL 06/10/2020 11:06 AM EDT [facility] Blood specimen (specimen) 06/10/2020 11:05 AM EDT 06/10/2020 11:05 AM EDT Ryan Soriano MD POINT OF CARE TEST ORDERA BLES Final Result Performing Organization Address [facility] Co de Phone Number [facility] [address] [facility] * (ABNORMAL) POC Glucose Monitoring Device (06/10/2020 8:17 AM EDT) POC Glucose Monitoring Device 188(H) 70 - 100 mg/dL 06/10/2020 8:18 AM EDT [facility] Blood specimen (specimen) 06/10/2020 8:17 AM EDT 06/10/2020 8:18 AM EDT Ryan Soriano MD POINT OF CARE TEST ORDERA BLES Final Result Performing Organization Address [facility] Co de Phone Number [facility] [address] [facility] * Vancomycin, trough (06/10/2020 5:33 AM EDT) Vancomycin Tr 15.5 10.0 - 20.0 ug/mL 06/10/2020 7:34 AM EDT [facility] Plasma specimen (specimen) 06/10/2020 5:33 AM EDT 06/10/2020 7:11 AM EDT us Kelsie Scanlon PharmD LAB BLOOD ORDERABLES Final R esult Performing Organization Address [facility] Co de Phone Number [facility] [address] [facility] * (ABNORMAL) POC Glucose Monitoring Device (06/09/2020 9:26 PM EDT) POC Glucose Monitoring Device 145(H) 70 - 100 mg/dL 06/09/2020 9:26 PM EDT [facility] Blood specimen (specimen) 06/09/2020 9:26 PM EDT 06/09/2020 9:26 PM EDT Ryan Soriano MD POINT OF CARE TEST ORDERA BLES Final Result Performing Organization Address [facility] Co de Phone Number [facility] [address] [facility] * (ABNORMAL) POC Glucose Monitoring Device (06/09/2020 5:28 PM EDT) POC Glucose Monitoring Device 172(H) 70 - 100 mg/dL 06/09/2020 5:29 PM EDT [facility] Blood specimen (specimen) 06/09/2020 5:28 PM EDT 06/09/2020 5:29 PM EDT Ryan Soriano MD POINT OF CARE TEST ORDERA BLES Final Result Performing Organization Address [facility] Co de Phone Number [facility] [address] * (ABNORMAL) POC Glucose Monitoring Device (06/09/2020 12:55 PM EDT) POC Glucose Monitoring Device 195(H) 70 - 100 mg/dL 06/09/2020 12:55 PM EDT [facility] Blood specimen (specimen) 06/09/2020 12:55 PM EDT 06/09/2020 12:55 PM EDT Ryan Soriano MD POINT OF CARE TEST ORDERA BLES Final Result Performing Organization Address [facility] Co de Phone Number [facility] [address] [facility] * (ABNORMAL) POC Glucose Monitoring Device (06/09/2020 9:27 AM EDT) POC Glucose Monitoring Device 172(H) 70 - 100 mg/dL 06/09/2020 9:28 AM EDT [facility] Blood specimen (specimen) 06/09/2020 9:27 AM EDT 06/09/2020 9:28 AM EDT Ryan Soriano MD POINT OF CARE TEST ORDERA BLES Final Result Performing Organization Address [facility] Co de Phone Number [facility] [address] [facility] * Vancomycin, random (06/09/2020 6:05 AM EDT) Vancomycin Random 18.0 ug/mL 06/09/2020 8:19 AM EDT [facility] Comment:Reference range not established for this test. Plasma specimen (specimen) 06/09/2020 6:05 AM EDT 06/09/2020 7:45 AM EDT Jake Zavala MD LAB BLOOD ORDERABLES Final Res ult Performing Organization Address [facility] Co de Phone Number [facility] [address] * (ABNORMAL) Hemoglobin A1c (06/09/2020 6:05 AM EDT) Hemoglobin A1C 6.5(H) 4.0 - 5.6 % 06/09/2020 8:28 AM EDT [facility] Comment: Hemoglobin A1c Interpretation Guidelines: [...] unawareness, and other individual patient considerations. Whole blood specimen (specimen) 06/09/2020 6:05 AM EDT 06/09/2020 7:45 AM EDT Ryan Soriano MD LAB BLOOD ORDERABLES Yoselin l Result Performing Organization Address [facility] de Phone Number [facility] [address] [id number] * Phosphorus (06/09/2020 6:05 AM EDT) Phosphorus 4.5 2.1 - 4.7 mg/dL 06/09/2020 8:46 AM EDT [facility] Plasma specimen (specimen) 06/09/2020 6:05 AM EDT 06/09/2020 7:45 AM EDT Ryan Soriano MD LAB BLOOD ORDERABLES Yoselin l Result [facility] [address] [facility] * Magnesium (06/09/2020 6:05 AM EDT) Magnesium 2.0 1.5 - 2.5 mg/dL 06/09/2020 8:46 AM EDT [facility] Plasma specimen (specimen) 06/09/2020 6:05 AM EDT 06/09/2020 7:45 AM EDT Ryan Soriano MD LAB BLOOD ORDERABLES Yoselin l Result Performing Organization Address [facility] Co de Phone Number [facility] [address] [facility] * Prealbumin (06/09/2020 6:05 AM EDT) Prealbumin 20.0 17.0 - 34.0 mg/dL 06/09/2020 8:19 AM EDT [facility] Serum specimen (specimen) 06/09/2020 6:05 AM EDT 06/09/2020 7:45 AM EDT Ryan Soriano MD LAB BLOOD ORDERABLES Yoselin l Result Performing Organization Address [facility] Co de Phone Number [facility] [address] [facility] * (ABNORMAL) CBC (06/09/2020 6:05 AM EDT) WBC 4.4 3.8 - 10.8 10E3/uL 06/09/2020 7:55 AM EDT [facility] RBC 2.46(L) 4.20 - 5.80 10E6/uL 06/09/2020 7:55 AM EDT [facility] Hemoglobin 7.5(L) 13.2 - 17.1 g/dL 06/09/2020 7:55 AM EDT [facility] Hematocrit 22.9(L) 38.5 - 50.0 % 06/09/2020 7:55 AM EDT [facility] MCV 93.0 80.0 - 100.0 fL 06/09/2020 7:55 AM EDT [facility] MCH 30.4 27.0 - 33.0 pg 06/09/2020 7:55 AM EDT [facility] MCHC 32.7 32.0 - 36.0 g/dL 06/09/2020 7:55 AM EDT [facility] RDW 15.3(H) 11.0 - 15.0 % 06/09/2020 7:55 AM EDT [facility] Platelets 216 140 - 400 10E3/uL 06/09/2020 7:55 AM EDT [facility] MPV 7.8 7.5 - 11.5 fL 06/09/2020 7:55 AM EDT [facility] Whole blood specimen (specimen) 06/09/2020 6:05 AM EDT 06/09/2020 7:45 AM EDT us Ryan Soriano MD LAB BLOOD ORDERABLES Yoselin robles Result Performing Organization Address City/State/[facility] Co de Phone Number [facility] [address] * (ABNORMAL) Comprehensive metabolic panel (06/09/2020 6:05 AM EDT) Sodium 139 133 - 146 mmol/L 06/09/2020 8:46 AM EDT [facility] Potassium 4.2 3.5 - 5.3 mmol/L 06/09/2020 8:46 AM EDT [facility] Chloride 99 98 - 110 mmol/L 06/09/2020 8:46 AM EDT [facility] CO2 30 21 - 33 mmol/L 06/09/2020 8:46 AM EDT [facility] Anion Gap 10 3 - 16 mmol/L 06/09/2020 8:46 AM EDT [facility] BUN 22 7 - 25 mg/dL 06/09/2020 8:46 AM EDT [facility] Creatinine 6.03(H) 0.60 - 1.30 mg/dL 06/09/2020 8:46 AM EDT [facility] Glucose 156(H) 70 - 100 mg/dL 06/09/2020 8:46 AM EDT [facility] Calcium 8.8 8.6 - 10.3 mg/dL 06/09/2020 8:46 AM EDT [facility] Total Bilirubin 0.3 0.0 - 1.5 mg/dL 06/09/2020 8:46 AM T [facility] AST 11(L) 13 - 39 U/L 06/09/2020 8:46 AM EDT [facility] ALT 3(L) 7 - 52 U/L 06/09/2020 8:46 AM EDT [facility] Alkaline Phosphatase 72 36 - 125 U/L 06/09/2020 8:46 AM EDT [facility] Total Protein 6.1(L) 6.4 - 8.9 g/dL 06/09/2020 8:46 AM T [facility] Albumin 3.1(L) 3.5 - 5.7 g/dL 06/09/2020 8:46 AM T [facility] Osmolality, Calculated 295 278 - 305 mOsm/kg 06/09/2020 8:46 AM [facility] eGFR AA CKD-EPI 12 See note. 0 8:46 AM [facility] Comment: As of 2015 the estimated [...] equation to estimate glomerular filtration rate. ??[employer]. 2009:150(9):604-12 eGFR NONAA CKD-EPI 10 See note. 2019 8:46 AM [facility] Comment: As of 2015 the estimated [...] equation to estimate glomerular filtration rate. ??[employer]. 2009:150(9):604-12 Plasma specimen (specimen) 06/09/2020 6:05 AM EDT 06/09/2020 7:45 AM EDT us Ryan Soriano MD LAB BLOOD ORDERABLES Yoselin margaret Result [facility] [address] [id number], [facility] documented in this encounter Visit Diagnoses Diagnosis Osteomyelitis (CMS-HCC)- Primary Unspecified osteomyelitis, site unspecified ESRD (end stage renal disease) (CMS-HCC) End stage renal disease Essential (primary) hypertension Unspecified essential hypertension Epidural abscess Intracranial abscess Esophageal candidiasis (CMS-HCC) Candidiasis of the esophagus Hepatitis B infection without delta agent without hepatic coma, unspecified chronicity Anemia, unspecified type Immunosuppression (CMS-HCC) S/P liver transplant (CMS-HCC) Hyperglycemia Other abnormal glucose Other osteonecrosis, left femur (CMS-HCC) Anxiety Anxiety state, unspecified Esophageal candidiasis (CMS-HCC) Candidiasis of the esophagus ESRD (end stage renal disease) (CMS-HCC) End stage renal disease Obstructive sleep apnea Obstructive sleep apnea (adult) (pediatric) Prophylaxis for cytomegalovirus Epidural abscess Intracranial abscess Essential (primary) hypertension Unspecified essential hypertension Immunosuppression for liver transplant (CMS Dx) Type 2 diabetes mellitus with diabetic chronic kidney disease (CMS-HCC) Anxiety Anxiety state, unspecified Anemia, unspecified Right hip pain Pain in joint, pelvic region and thigh Hepatitis B carrier (CMS-HCC) Hepatitis B carrier Dialysis AV fistula malfunction (CMS-HCC) * Assessment & Plan Note - Jake Zavala MD - 06/24/2020 9:13 AM ESTAssociated Problem(s): Anemia, unspecified Transfuse today in dialysis. PLAN: ?? Continue epoetin 6000 units Mon/Mon/Mon ?? Transfuse 1 unit PRBC tomorrow with dialysis * Assessment & Plan Note - Jake Zavala MD - 06/24/2020 9:11 AM ESTAssociated Problem(s): Essential (primary) hypertension The patient's blood pressure is above goal this morning, but is usually well controlled. BP: 140/74. Will re-assess tomorrow. PLAN: ?? Continue hydralazine 100 mg PO Q8H ?? Continue nifedipine XR 90 mg PO BID ?? Continue metoprolol 25 mg PO BID ?? Continue terazosin 10 mg PO QHS * Assessment & Plan Note - Jake Zavala MD - 06/24/2020 9:11 AM ESTAssociated Problem(s): Osteomyelitis ([facility]) Infectious diseases plans for extended course given immunosuppression. PLAN: ?? Continue vancomycin with dialysis, treat through 07/23/2020 ?? Safety labs weekly ?? Refer for home infusion after discharge * Assessment & Plan Note - Jake Zavala MD - 06/24/2020 9:10 AM ESTAssociated Problem(s): Right hip pain Still unable to walk with therapy. Per PT, he is able to transfer but otherwise is not mobile. PLAN: ?? Continue gabapentin 100 mg PO BID ?? Continue methocarbamol 500 mg PO four times per day ?? Continue PRN oxycodone 5 mg or 10 mg PO Q4H * Assessment & Plan Note - Jake Zavala MD - 06/24/2020 9:10 AM ESTAssociated Problem(s): Type 2 diabetes mellitus with diabetic chronic kidney disease ([facility]) Glucose well controlled yesterday. Received 1 unit of correction. PLAN: ?? Continue insulin glargine 10 units subcutaneous QHS ?? Continue insulin lispro 6 units subcutaneous QAC ?? Continue insulin lispro correction 0-5 units subcutaneous QAC per low-dose scale ?? Fingersticks QAC/QHS * Assessment & Plan Note - Jake Zavala MD - 06/23/2020 10:29 AM EST Associated Problem(s): Anemia, unspecified Blood was unable to be obtained yesterday in time for infusion with dialysis. He is a difficult match. Will transfuse with dialysis on Monday. Asymptomatic. PLAN: ?? Continue epoetin 6000 units Mon/Mon/Mon ?? Transfuse 1 unit PRBC tomorrow with dialysis * Assessment & Plan Note - Jake Zavala MD - 06/23/2020 10:29 AM EST Associated Problem(s): ESRD (end stage renal disease) ([facility]) Tolerated dialysis well yesterday. PLAN: ?? Continue dialysis * Assessment & Plan Note - Jake Zavala MD - 06/23/2020 10:29 AM EST Associated Problem(s): Essential (primary) hypertension The patient's blood pressure is above goal this morning, but is usually well controlled. BP: 154/72. Will re-assess tomorrow. PLAN: ?? Continue hydralazine 100 mg PO Q8H ?? Continue nifedipine XR 90 mg PO BID ?? Continue metoprolol 25 mg PO BID ?? Continue terazosin 10 mg PO QHS * Assessment & Plan Note - Jake Zavala MD - 06/23/2020 10:28 AM EST Associated Problem(s): Right hip pain Pain is better than on admission, but is still limiting his ability to participate with therapy. PLAN: ?? Continue gabapentin 100 mg PO BID ?? Continue methocarbamol 500 mg PO four times per day ?? Continue PRN oxycodone 5 mg or 10 mg PO Q4H * Assessment & Plan Note - Jake Zavala MD - 06/23/2020 10:28 AM EST Associated Problem(s): Type 2 diabetes mellitus with diabetic chronic kidney disease ([facility]) Well controlled. AM glucose was 138. PLAN: ?? Continue insulin glargine 10 units subcutaneous QHS ?? Continue insulin lispro 6 units subcutaneous QAC ?? Continue insulin lispro correction 0-5 units subcutaneous QAC per low-dose scale ?? Fingersticks QAC/QHS * Assessment & Plan Note - Jake Zavala MD - 06/22/2020 11:28 AM EST Associated Problem(s): Immunosuppression for liver transplant ([facility] Dx) The patient is on cyclosporine. Levels were below goal while at [facility]; dose increased. PLAN: ?? Continue cyclosporine 75 mg PO BID ?? Check LFTs and cyclosporine levels every Monday * Assessment & Plan Note - Jake Zavala MD - 06/22/2020 11:27 AM EST Associated Problem(s): ESRD (end stage renal disease) ([facility]) Dialsysis M/W/F. PLAN: ?? Continue dialysis * Assessment & Plan Note - Jake Zavala MD - 06/22/2020 11:27 AM EST Associated Problem(s): Osteomyelitis ([facility]) Infectious diseases plans for extended course given immunosuppression. PLAN: ?? Continue vancomycin with dialysis, treat through 07/23/2020 ?? Safety labs weekly ?? Refer for home infusion after discharge * Assessment & Plan Note - Jake Zavala MD - 06/22/2020 11:26 AM EST Associated Problem(s): Type 2 diabetes mellitus with diabetic chronic kidney disease ([facility]) Glucose well controlled on current regimen. PLAN: ?? Continue insulin glargine 10 units subcutaneous QHS ?? Continue insulin lispro 6 units subcutaneous QAC ?? Continue insulin lispro correction 0-5 units subcutaneous QAC per low-dose scale ?? Fingersticks QAC/QHS * Assessment & Plan Note - Jake Zavala MD - 06/22/2020 11:26 AM EST Associated Problem(s): Essential (primary) hypertension The patient's blood pressure is within goal. BP: 127/63 PLAN: ?? Continue hydralazine 100 mg PO Q8H ?? Continue nifedipine XR 90 mg PO BID ?? Continue metoprolol 25 mg PO BID ?? Continue terazosin 10 mg PO QHS * Assessment & Plan Note - Jake Zavala MD - 06/22/2020 11:25 AM EST Associated Problem(s): Anemia, unspecified Hemoglobin is 6.7 today. Will transfuse today, if blood is available in time for dialysis. PLAN: ?? Continue epoetin 6000 units Mon/Wed/Fri ?? Prepare 1 unit PRBC * Assessment & Plan Note - Jake Zavala MD - 06/14/2020 10:25 AM EST Associated Problem(s): Hepatitis B carrier (CMS-HCC) The patient's liver donor was hepatitis B positive. He is on entecavir chronically for prophylaxis/suppression. Hep B viral load at [facility] was detectable, but to low to quantify. Infectious diseases isconsidering increasing entecavir and will follow up with outpatient transplant ID to discuss. PLAN: ?? Continue entecavir 0.5 mg PO weekly ?? Isolate during dialysis * Assessment & Plan Note - Jake Zavala MD - 06/14/2020 10:24 AM EST Associated Problem(s): Immunosuppression for liver transplant (CMS Dx) The patient is on cyclosporine. Will need weekly labs while on fluconazole. His most recent level was low. Discussed with hepatology fellow; no need to increase dose unless LFTs start to rise. PLAN: ?? Continue cyclosporine 75 mg PO BID ?? Check LFTs and cyclosporine levels every Monday * Assessment & Plan Note - Jake Zavala MD - 06/14/2020 10:23 AM EST Associated Problem(s): Osteomyelitis ([facility]) Infectious diseases plans for extended course given immunosuppression. PLAN: ?? Continue vancomycin with dialysis, treat through 07/23/2020 ?? Safety labs weekly * Assessment & Plan Note - Jake Zavala MD - 06/14/2020 10:23 AM EST Associated Problem(s): Esophageal candidiasis (CMS-HCC) (Resolved 06/22/2020) On fluconazole (luz seen on EGD). Monitoring cyclosporine while on fluconazole; level is appropriate. PLAN: ?? Continue fluconazole 200 mg PO daily * Assessment & Plan Note - Jake Zavala MD - 06/14/2020 10:22 AM EST Associated Problem(s): Obstructive sleep apnea His home unit is here, but seems to be configured incorrectly. He is using hospital unit. PLAN: ?? CPAP overnight * Assessment & Plan Note - Jake Zavala MD - 06/14/2020 10:20 AM EST Associated Problem(s): Anxiety He is not having anxiety now, but requests that he be permitted to have a PRN dose in afternoon if he is anxious. Currently on BID scheduled. PLAN: ?? Continue lorazepam 0.5 mg PO BID AND PRN lorazepam 0.5 mg PO once per day * Assessment & Plan Note - Jake Zavala MD - 06/14/2020 10:19 AM EST Associated Problem(s): Type 2 diabetes mellitus with diabetic chronic kidney disease ([facility]) Bedtime glucose was 136 and fasting was 134 this morning. Very well controlled on current regimen. PLAN: ?? Continue insulin glargine 10 units subcutaneous QHS ?? Continue insulin lispro 6 units subcutaneous QAC ?? Continue insulin lispro correction 0-5 units subcutaneous QAC per low-dose scale ?? Fingersticks QAC/QHS * Assessment & Plan Note - Jake Zavala MD - 06/13/2020 9:43 AM EDTAssociated Problem(s): Anemia, unspecified Hemoglobin improved to 8.1 after 1 unit yesterday. PLAN: ?? Continue epoetin 6000 units Mon/Wed/Fri * Assessment & Plan Note - Jake Zavala MD - 06/13/2020 8:33 AM EDTAssociated Problem(s): Right hip pain Does not appear to have imaging of [...] 5 mg or 10 mg PO Q4H * Assessment & Plan Note - Jake Zavala MD - 06/13/2020 8:26 AM EDTAssociated Problem(s): Anxiety Anxiety is better controlled. He is taking 1-2x per day (mostly twice). He would like to have it scheduled BID. PLAN: ?? Change lorazepam 0.5 mg PO from Q8H PRN to BID * Assessment & Plan Note - Jake Zavala MD - 06/13/2020 8:24 AM EDTAssociated Problem(s): Immunosuppression for liver transplant ([facility] Dx) The patient is on cyclosporine. Will need weekly labs while on fluconazole. He is also taking entecavir chronically (donor was hepatitis B positive). Hep B levels at [facility] were detectable, but to low to quantify. Infectious diseases is considering increasing entecavir and will follow up with outpatient transplant ID to discuss. PLAN: ?? Continue cyclosporine 75 mg PO BID ?? Continue entecavir 0.5 mg PO weekly ?? Check cyclosporine levels every Monday * Assessment & Plan Note - Jake Zavala MD - 06/13/2020 8:22 AM EDTAssociated Problem(s): ESRD (end stage renal disease) ([facility]) Dialsysis M/W/F. Tolerated well yesterday. PLAN: ?? Continue dialysis * Assessment & Plan Note - Jake Zavala MD - 06/13/2020 8:11 AM EDTAssociated Problem(s): Osteomyelitis ([facility]) Had safety labs this week, which were reassuring. He asked if repeat MRI is needed to show resolution of epidural abscess/osteomyelitis. His symptoms are improving and he no longer has back pain. Given improvement in symptoms, I do not think he needs repeat imaging now. Pain is controlled. PLAN: ?? Continue vancomycin with dialysis ?? Safety labs weekly * Assessment & Plan Note - Jake Zavala MD - 06/13/2020 7:15 AM EDTAssociated Problem(s): Type 2 diabetes mellitus with diabetic chronic kidney disease ([facility]) Bedtime glucose was 211 and fasting was 194. Bolus seems appropriate. Will increase pre meal. PLAN: ?? Continue insulin glargine 10 units subcutaneous QHS ?? Increase insulin lispro from 4 units to 6 units subcutaneous QAC ?? Continue insulin lispro correction 0-5 units subcutaneous QAC per low-dose scale ?? Fingersticks QAC/QHS * Assessment & Plan Note - Jake Zavala MD - 06/13/2020 7:15 AM EDTAssociated Problem(s): Essential (primary) hypertension The patient's blood pressure is within goal. BP: 139/73 PLAN: ?? Continue hydralazine 100 mg PO Q8H ?? Continue nifedipine XR 90 mg PO BID ?? Continue metoprolol 25 mg PO BID ?? Continue terazosin 10 mg PO QHS * Assessment & Plan Note - Jake Zavala MD - 06/12/2020 3:52 PM EDTAssociated Problem(s): Anemia, unspecified Hemoglobin is 7.0, but was 6.9 earlier this week. He was not transfused at that time due to difficulty finding matched blood. Will transfuse today. PLAN: ?? Transfuse 1 unit of packed red blood cells on Monday. * Assessment & Plan Note - Jake Zavala MD - 06/12/2020 3:52 PM EDTAssociated Problem(s): Type 2 diabetes mellitus with diabetic chronic kidney disease ([facility]) Glucose well controlled today. PLAN: ?? Continue insulin glargine 10 units subcutaneous QHS ?? Continue insulin lispro 4 units subcutaneous QAC ?? Continue insulin lispro correction 0-5 units subcutaneous QAC per low-dose scale ?? Fingersticks QAC/QHS * Assessment & Plan Note - Jake Zavala MD - 06/12/2020 3:51 PM EDTAssociated Problem(s): ESRD (end stage renal disease) ([facility]) Dialsysis M/W/F. Will need to remove some additional fluid today to compensate for blood and vancomycin. PLAN: ?? Continue dialysis * Assessment & Plan Note - Jake Zavala MD - 06/12/2020 3:51 PM EDTAssociated Problem(s): Osteomyelitis ([facility]) On vancomycin for MRSE. Infectious diseases is following. PLAN: ?? Continue vancomycin with dialysis ?? Safety labs weekly * Assessment & Plan Note - Jake Zavala MD - 06/12/2020 3:51 PM EDTAssociated Problem(s): Obstructive sleep apnea Brought home unit it. PLAN: ?? CPAP overnight * Assessment & Plan Note - Jake Zavala MD - 06/12/2020 3:50 PM EDTAssociated Problem(s): Anxiety Anxiety was increased today. He feels that the lorazepam helps, but he had not yet had a dose today. PLAN: ?? Continue PRN lorazepam 0.5 mg PO Q8H for anxiety * Assessment & Plan Note - Jake Zavala MD - 06/11/2020 1:39 PM EDTAssociated Problem(s): Essential (primary) hypertension The patient's blood pressure is within goal. BP: 104/52 PLAN: ?? Continue hydralazine 100 mg PO Q8H ?? Continue nifedipine XR 90 mg PO BID ?? Continue metoprolol 25 mg PO BID ?? Continue terazosin 10 mg PO QHS * Assessment & Plan Note - Jake Zavala MD - 06/11/2020 1:39 PM EDTAssociated Problem(s): Type 2 diabetes mellitus with diabetic chronic kidney disease ([facility]) Fasting glucose was unchanged from bedtime; basal insulin dose appears appropriate. PLAN: ?? Continue insulin glargine 10 units subcutaneous QHS ?? Continue insulin lispro 4 units subcutaneous QAC ?? Continue insulin lispro correction 0-5 units subcutaneous QAC per low-dose scale ?? Fingersticks QAC/QHS * Assessment & Plan Note - Jake Zavala MD - 06/11/2020 1:38 PM EDTAssociated Problem(s): Immunosuppression for liver transplant ([facility] Dx) The patient is on cyclosporine. Will need weekly labs while on fluconazole. He is also taking entecavir chronically (donor was hepatitis B positive). PLAN: ?? Continue cyclosporine 75 mg PO BID ?? Continue entecavir 0.5 mg PO weekly ?? Check cyclosporine levels every Monday * Assessment & Plan Note - Jake Zavala MD - 06/10/2020 5:53 PM EDTAssociated Problem(s): Anemia, unspecified Will transfuse tomorrow with dialysis. No IV access to give blood, and he would prefer to get it with dialysis. Not symptomatic other than feeling a little run down. PLAN: ?? Transfuse 1 unit of packed red blood cells on Monday. * Assessment & Plan Note - Jake Zavala MD - 06/10/2020 5:40 PM EDTAssociated Problem(s): Obstructive sleep apnea Does not want to use our CPAP. PLAN: ?? Can use home unit if brought in * Assessment & Plan Note - Jake Zavala MD - 06/10/2020 5:38 PM EDTAssociated Problem(s): Type 2 diabetes mellitus with diabetic chronic kidney disease ([facility]) Remains above goal. Will increase insulin PLAN: ?? Increase insulin glargine from 5 units to 10 units subcutaneous QHS ?? Start insulin lispro 4 units subcutaneous QAC ?? Continue insulin lispro correction 0-5 units subcutaneous QAC per low-dose scale ?? Fingersticks QAC/QHS * Assessment & Plan Note - Jake Zavala MD - 06/10/2020 5:38 PM EDTAssociated Problem(s): Essential (primary) hypertension The patient's blood pressure is within goal. BP: 119/60 PLAN: ?? Continue hydralazine 100 mg PO Q8H ?? Continue nifedipine XR 90 mg PO BID ?? Continue metoprolol 25 mg PO BID ?? Continue terazosin 10 mg PO QHS * Assessment & Plan Note - Jake Zavala MD - 06/10/2020 5:36 PM EDTAssociated Problem(s): Osteomyelitis ([facility]) On vancomycin for RODNEY. Infectious diseases is following. PLAN: ?? Continue vancomycin with dialysis ?? Safety labs weekly * Assessment & Plan Note - Jake Zavala MD - 06/09/2020 6:24 PM EDTAssociated Problem(s): ESRD (end stage renal disease) ([facility]) Dialsysis M/W/F. Will discuss dry weight with nephrology. PLAN: ?? Continue dialysis * Assessment & Plan Note - Jake Zavala MD - 06/09/2020 6:22 PM EDTAssociated Problem(s): Esophageal candidiasis ([facility]) (Resolved 06/22/2020) Currently on fluconazole. PLAN: ?? Continue fluconazole 200 mg PO daily * Assessment & Plan Note - Jake Zavala MD - 06/09/2020 6:21 PM EDTAssociated Problem(s): Anxiety The patient takes alprazolam 2-3 times daily at home. He was getting once daily at [facility]. Will startlorazepam instead since it has a longer duration of action. PLAN: ?? Start PRN lorazepam 0.5 mg PO Q8H for anxiety * Assessment & Plan Note - Jake Zavala MD - 06/09/2020 6:20 PM EDTAssociated Problem(s): Type 2 diabetes mellitus with diabetic chronic kidney disease ([facility]) Glucose is above goal. Will add basal insulin. PLAN: ?? Start insulin glargine 5 units subcutaneous QHS ?? Continue insulin lispro correction 0-5 units subcutaneous QAC per low-dose scale * Assessment & Plan Note - Jake Zavala MD - 06/09/2020 6:18 PM EDTAssociated Problem(s): Immunosuppression for liver transplant ([facility] Dx) The patient is on cyclosporine. Will need weekly labs while on fluconazole. He is also taking entecavir chronically (donor was hepatitis B positive). PLAN: ?? Continue cyclosporine 75 mg PO BID ?? Continue entecavir 0.5 mg PO weekly ?? Check cyclosporine levels every Monday * Assessment & Plan Note - Jake Zavala MD - 06/09/2020 6:17 PM EDTAssociated Problem(s): Essential (primary) hypertension The patient's blood pressure is within goal. BP: 135/72 PLAN: ?? Continue hydralazine 100 mg PO Q8H ?? Continue nifedipine XR 90 mg PO BID ?? Continue metoprolol 25 mg PO BID ?? Continue terazosin 10 mg PO QHS * Assessment & Plan Note - Jake Zavala MD - 06/09/2020 6:14 PM EDTAssociated Problem(s): Osteomyelitis ([facility]) Infectious diseases is treated for methicillin-resistant Staph epidermidis. Cultures did not grow, but this is the organism he previously had at prior hospital. He is currently on intermittent vancomycin. PLAN: ?? Continue vancomycin with dialysis ?? Safety labs weekly documented in this encounter Administered Medications Inactive Administered Medications - up to 3 most recent administrations Medication Order MAR Action Action Date Dose Rate Site acetaminophen (TYLENOL) tablet 650 mg 650 mg, Oral, Every 4 hours PRN, Fever, Headaches, Starting on Mon06/09/20 at 0630, Maximum dose of acetaminophen is 4000 mg (4 grams) from all sources in 24 hours. Given 06/25/2020 12:05 PM EST 650 mg acetaminophen (TYLENOL) tablet 975 mg 975 mg, Oral, Every 6 hours, First dose on 06/08/20 at 2030, Maximum dose of acetaminophen is 4000 mg (4 grams) from all sources in 24 hours. Given 06/09/2020 2:09 AM EDT 975 mg Given 06/08/2020 9:23 PM EDT 975 mg albuterol (PROVENTIL) nebulizer solution 2.5 mg 2.5 mg, Nebulization, RT every 4 hours PRN, Wheezing, Starting on Bobbi 06/11/20 at 2239 Given 06/13/2020 1:35 PM EDT 2 .5 mg ALPRAZolam (XANAX) tablet 0.5 mg 0.5 mg, Oral, Daily as needed, Anxiety, Agitation, Starting on 06/08/20 at 2030 Given 06/09/2020 12:14 AM EDT 0.5 mg aluminum & magnesium hydroxide-simethicone (MYLANTA) suspension 30 mL 30 mL, Oral, Once, On 06/14/20 at 1930, For 1 dose, Therapeutic Interchange for GI Cocktail: Administer 30mL of aluminum & magnesium hydroxide-simethicone (Mag-Al Plus XS) suspension AND Viscous lidocaine 2% 15mL solution. Given 06/14/2020 7:44 PM EST 30 mLs bisacodyL (DULCOLAX) EC tablet 10 mg 10 mg, Oral, Daily as needed, Constipation, for severe constipation (no bowel movement 24 hrs after senna-s), Starting on 06/08/20 at 2027 Given 06/11/2020 9:03 PM EDT 10 mg carBAMazepine (TEGRETOL) tablet 200 mg 200 mg, Oral, At Bedtime (2099), First dose on 06/08/20 at 2100 Given 06/24/2020 8:54 PM EST 200 mg Given 06/23/2020 10:12 PM EST 200 mg Given 06/22/2020 8:58 PM EST 200 mg carbamide peroxide (DEBROX) 6.5 % otic solution 5 drop 5 drop, Left Ear, 2 times daily, First dose on 06/13/20 at 1030, For 5 days Given 06/17/2020 9:51 PM EST 5 drops Given 06/17/2020 8:47 AM EST 5 drops Given 06/15/2020 8:27 PM EST 5 drops cycloSPORINE modified (NEORAL) capsule 100 mg 100 mg, Oral, 2 times daily, First dose (after last modification) on Mon06/19/20 at 2100, LEVEL 2 HAZARDOUS MEDICATION Given 06/25/2020 8:36 AM EST 100 mg Given 06/24/2020 8:54 PM EST 100 mg Given 06/24/2020 9:51 AM EST 100 mg cycloSPORINE modified (NEORAL) capsule 75 mg 75 mg, Oral, 2 times daily, First dose on Mon06/08/20 at 2100, LEVEL 2 HAZARDOUS MEDICATION Given 06/19/2020 9: 15 AM EST 75 mg Given 06/18/2020 8:55 PM EST 75 mg Given 06/18/2020 8:45 AM EST 75 mg dextrose 50 % in water (D50W) iv Syrg 25 mL 25 mL, Intravenous, Every 15 min PRN, for glucose < 70 and alert but can not be corrected, orally or via feeding tube, Starting on Mon06/08/20 at 2038, Recheck blood sugar in 15 minutes and repeat treatment if glucose still < 70. dextrose 50 % in water (D50W) iv Syrg 50 mL 50 mL, Intravenous, Every 15 min PRN, for glucose < 70 and not alert, Starting on Mon06/08/20 at 2038, Recheck glucose in 15 minutes and repeat treatment if glucose still < 70. entecavir (BARACLUDE) tablet 0.5 mg 0.5 mg, Oral, Every 7 days, First dose on Mon06/09/20 at 0600, ADMINISTER ON EMPTY STOMACH (2 HOURS BEFORE OR AFTER MEALS). LEVEL 2 HAZARDOUS MEDICATION Given 06/23/2020 6:05 AM EST 0.5 mg Given 06/16/2020 5:08 AM EST 0.5 mg Given 06/09/2020 5:59 AM EDT 0.5 mg epoetin giancarlo-epbx (RETACRIT) 3,000 unit/mL solution 6,000 Units 6,000 Units, Intravenous, Every Monday, Monday, Monday (Once per day on Mon), Indications: Anemia in Chronic Kidney Disease, First dose (after last modification) on Mon06/12/20 at 1300Indications:Anemia in Chronic Kidney Disease Given 06/24/2020 11:55 AM EST 6,000 Units Given 06/22/2020 12:23 PM EST 6,000 Units Given 06/19/2020 12:36 PM EST 6,000 Units fluconazole (DIFLUCAN) tablet 200 mg 200 mg, Oral, Daily, First dose on Mon06/09/20 at 0900, For 12 doses Given 06/20/2020 9:04 AM EST 200 mg Given 06/19/2020 9:15 AM EST 200 mg Given 06/18/2020 8:43 AM EST 200 mg gabapentin (NEURONTIN) capsule 100 mg 100 mg, Oral, 2 times daily, First dose (after last modification) on Mon06/13/20 at 0900 Given 06/25/2020 8:36 AM EST 100 mg Given 06/24/2020 8:54 PM EST 100 mg Given 06/24/2020 9:52 AM EST 100 mg gabapentin (NEURONTIN) capsule 200 mg 200 mg, Oral, At Bedtime (2099), First dose on Mon06/08/20 at 2100 Given 06/12/2020 8:12 PM EDT 200 mg Given 06/11/2020 9:02 PM EDT 200 mg Given 06/10/2020 8:43 PM EDT 200 mg glucose chewable tablet 12 g 12 g, Oral, Every 15 min PRN, Low blood sugar, for glucose 50-70 mg/dL, Starting on Mon06/08/20 at 203, Recheck glucose in 15 minutes and if glucose still < 70, repeat treatment. DO NOT ADMINISTER VIA FEEDING TUBE guaiFENesin (MUCINEX) 12 hr tablet 600 mg 600 mg, Oral, 2 times daily, First dose on Mon06/20/20 at 1000, For 3 days, DO NOT CRUSH Given 06/20/2020 9:04 PM EST 600 mg Given 06/20/2020 2:24 PM EST 600 mg guaiFENesin (MUCINEX) 12 hr tablet 600 mg 600 mg, Oral, 2 times daily, First dose on 06/21/20 at 1030, For 2 days, DO NOT CRUSH Given 06/22/2020 8:58 PM EST 600 mg Given 06/22/2020 7:50 AM EST 600 mg Given 06/21/2020 8:11 PM EST 600 mg guaiFENesin (ROBITUSSIN) 100 mg/5 mL syrup 20 mL 20 mL, Oral, Every 8 hours, First dose on Mon06/20/20 at 2230, For 3 days Given 06/21/2020 5:37 AM EST 20 mLs Given 06/20/2020 11:01 PM EST 20 mLs heparin (porcine) injection 5,000 Units 5,000 Units, Subcutaneous, Every 8 hours, First dose on Mon06/08/20 at 2100 Given 06/25/2020 11:59 AM EST 5,000 Units Abdominal Tissue Given 06/25/2020 6:32 AM EST 5,000 Units A bdominal Tissue Given 06/24/2020 8:52 PM EST 5,000 Units A bdominal Tissue heparin, porcine (PF) 1,000 unit/mL injection Soln Starting on Mon06/17/20 at 1230, For 1 dose, Created by [facility] heparin, porcine (PF) injection Soln 500 Units 500 Units, Intravenous, Use as directed PRN, for Bolus Dose prior to each dialysis. To be given by Dialysis Nurse., Starting on Mon06/17/20 at 1259 Given 06/22/2020 12:24 PM EST 2,000 Units Given 06/19/2020 12:34 PM EST 500 Units Given 06/17/2020 12:58 PM EST 500 Units heparin, porcine (PF) injection Soln 500 Units/hr (0.5 mL/hr), Intravenous, Use as directed PRN, for Maintenance Dose during Hemodialysis. Stop Infusion per Protocol based on Access Type., Starting on Mon06/17/20 at 1259 Given 06/22/2020 12:24 PM EST 500 Units/hr 0.5 mL/hr Given 06/19/2020 12:36 PM EST 500 Units/hr 0.5 mL/hr Given 06/17/2020 12:59 PM EST 500 Units/hr 0.5 mL/hr hydrALAZINE (APRESOLINE) tablet 100 mg 100 mg, Oral, Every 8 hours scheduled (3 times per day), First dose on Mon06/08/20 at 2100 Given 06/25/2020 11:59 AM EST 100 mg Given 06/25/2020 6:32 AM EST 100 mg Given 06/24/2020 8:54 PM EST 100 mg HYDROmorphone (DILAUDID) tablet 2 mg 2 mg, Oral, Every 4 hours PRN, severe pain (NRS 7-10), Starting on Mon06/08/20 at 2139, For 24 hours Given 06/09/2020 2:09 AM EDT 2 mg Given 06/08/2020 9:23 PM EDT 2 mg insulin glargine (LANTUS) injection 10 Units 10 Units, Subcutaneous, At Bedtime (2099), First dose on Mon06/10/20 at 2100, Do not hold medication unless instructed by provider. HIGH ALERT MEDICATION Given 06/16/2020 8:23 PM EST 10 Units Abdominal Tissue Given 06/15/2020 8:20 PM EST 10 Units Ab dominal Tissue Given 06/14/2020 8:16 PM EST 10 Units Ab dominal Tissue insulin glargine (LANTUS) injection 10 Units 10 Units, Subcutaneous, At Bedtime (2099), First dose on Mon06/18/20 at 2100, DO NOT HOLD WITHOUT PRESCRIBER ORDER HIGH ALERT MEDICATION Given 06/24/2020 9:18 PM EST 10 Units Abdominal Tissue Given 06/23/2020 10:12 PM EST 10 Units A bdominal Tissue Given 06/22/2020 9:00 PM EST 10 Units Ab dominal Tissue insulin glargine (LANTUS) injection 5 Units 5 Units, Subcutaneous, At Bedtime (2099), First dose on Mon06/09/20 at 2100, Therapeutic Interchange: insulin glargine (BASAGLAR/LANTUS SOLOSTAR) ___ units = insulin glargine (LANTUS) ___ units subcutaneous at bedtime HIGH ALERT MEDICATION Given 06/09/2020 10:13 PM EDT 5 Units Abdominal Tissue insulin lispro (humaLOG) injection 0-5 Units 0-5 Units, Subcutaneous, 3 times daily before meals, First dose on Mon06/09/20 at 0900, HIGH ALERT MEDICATION Given 06/24/2020 5:39 PM EST 1 Units Abdom inal Tissue Given 06/24/2020 3:51 PM EST 1 Units Ab dominal Tissue Given 06/24/2020 10:10 AM EST 1 Units A bdominal Tissue insulin lispro (humaLOG) injection 4 Units 4 Units, Subcutaneous, 3 times daily before meals, First dose on Mon06/10/20 at 1330, HIGH ALERT MEDICATION Onset of action is rapid. Give dose 5-10 minutes before meal. Have meal at bedside. Given 06/12/2020 2:11 PM EDT 4 Units A bdominal Tissue Given 06/12/2020 9:16 AM EDT 4 Units Ab dominal Tissue Given 06/11/2020 6:19 PM EDT 4 Units Ab dominal Tissue insulin lispro (humaLOG) injection 6 Units 6 Units, Subcutaneous, 3 times daily before meals, First dose (after last modification) on 06/13/20 at 0900, HIGH ALERT MEDICATION Onset of action is rapid. Give dose 5-10 minutes before meal. Have meal at bedside. Given 06/14/2020 6:13 PM EST 6 Units A bdominal Tissue Given 06/14/2020 11:58 AM EST 6 Units A bdominal Tissue Given 06/14/2020 9:07 AM EST 6 Units Ab dominal Tissue insulin lispro (humaLOG) injection 6 Units 6 Units, Subcutaneous, 3 times daily before meals, First dose on 06/20/20 at 1300, HIGH ALERT MEDICATION Onset of action is rapid. Give dose 5-10 minutes before meal. Have meal at bedside. Given 06/25/2020 9:04 AM EST 6 Units A bdominal Tissue Given 06/24/2020 5:40 PM EST 6 Units Ab dominal Tissue Given 06/24/2020 3:51 PM EST 6 Units Ab dominal Tissue insulin lispro (humaLOG) injection 8 Units 8 Units, Subcutaneous, 3 times daily before meals, First dose (after last modification) on 06/15/20 at 1300, HIGH ALERT MEDICATION Onset of action is rapid. Give dose 5-10 minutes before meal. Have meal at bedside. Given 06/17/2020 9:37 AM EST 8 Units A bdominal Tissue Given 06/16/2020 12:46 PM EST 8 Units A bdominal Tissue Given 06/16/2020 8:51 AM EST 8 Units Ab dominal Tissue insulin lispro (humaLOG) injection 8 Units 8 Units, Subcutaneous, 3 times daily before meals, First dose on Mon06/17/20 at 1800, For 1 dose, HIGH ALERT MEDICATION Onset of action is rapid. Give dose 5-10 minutes before meal. Have meal at bedside. Given 06/17/2020 5:45 PM EST 8 Units Abdominal Tissue lidocaine (LIDODERM) 5 % 1 patch 1 patch, Transdermal, Every 24 hours, First dose on Mon06/19/20 at 1030, LEAVE PATCH ON FOR 12 HOURS,THEN REMOVE FOR 12 HOURS. Patch Applied 06/25/2020 8:44 AM EST 1 patch Other Patch Applied 06/24/2020 9:58 AM EST 1 patch Other Patch Applied 06/23/2020 9:48 AM EST 1 patch Other lidocaine (PF) 2% (20 mg/mL) Soln 20 mg 20 mg (1 mL), Intradermal, Use as directed PRN, for fistula or graft access during Hemodialysis, Starting on Mon06/10/20 at 0842, For Intradermal use only. 1 mL = 20 mg. Given 06/17/2020 12:59 PM EST 20 mg Left Arm Given 06/10/2020 5:05 PM EDT 20 mg Le ft Forearm lidocaine HCL (XYLOCAINE) 2 % viscous soln Soln 15 mL 15 mL, Oral, Once, On 06/14/20 at 1930, For 1 dose, Therapeutic Interchange for GI Cocktail: Administer orally- 30mL of aluminum & magnesium hydroxide-simethicone (Mag-Al Plus XS) suspension AND Viscous lidocaine 2% 15mL solution. Given 06/14/2020 7:46 PM EST 15 mLs LORazepam (ATIVAN) tablet 0.5 mg 0.5 mg, Oral, Every 8 hours PRN, Anxiety, Starting on Mon06/09/20 at 1140 Given 06/12/2020 8:29 PM EDT 0.5 mg Given 06/12/2020 11:42 AM EDT 0.5 mg Given 06/11/2020 9:22 PM EDT 0.5 mg LORazepam (ATIVAN) tablet 0.5 mg 0.5 mg, Oral, 2 times daily, First dose (after last modification) on Mon06/13/20 at 0900 Given 06/14/2020 8:59 AM EST 0.5 mg Given 06/13/2020 8:09 PM EDT 0.5 mg Given 06/13/2020 8:53 AM EDT 0.5 mg LORazepam (ATIVAN) tablet 0.5 mg 0.5 mg, Oral, 2 times daily, First dose on 06/14/20 at 2100 Given 06/25/2020 8:35 AM EST 0.5 mg Given 06/24/2020 8:54 PM EST 0.5 mg Given 06/24/2020 9:52 AM EST 0.5 mg LORazepam (ATIVAN) tablet 0.5 mg 0.5 mg, Oral, Daily as needed, Anxiety, Starting on 06/14/20 at 1052 Given 06/25/2020 1:41 PM EST 0.5 mg Given 06/22/2020 5:53 PM EST 0.5 mg Given 06/19/2020 6:45 PM EST 0.5 mg melatonin Tab 6 mg 6 mg, Oral, At Bedtime (2099), First dose on Mon06/08/20 at 2100, FOR INSOMNIA Given 06/24/2020 8:53 PM EST 6 mg Given 06/23/2020 10:08 PM EST 6 mg Given 06/22/2020 8:59 PM EST 6 mg methocarbamoL (ROBAXIN) tablet 500 mg 500 mg, Oral, 4 times a day, First dose on Mon06/08/20 at 2100 Given 06/25/2020 11:59 AM EST 500 mg Given 06/25/2020 8:35 AM EST 500 mg Given 06/24/2020 8:52 PM EST 500 mg metoprolol tartrate (LOPRESSOR) tablet 25 mg 25 mg, Oral, 2 times daily, First dose on Mon06/08/20 at 2100 Given 06/25/2020 8:35 AM EST 25 mg Given 06/24/2020 8:54 PM EST 25 mg Given 06/24/2020 9:52 AM EST 25 mg NIFEdipine (PROCARDIA-XL) 24 hr tablet 90 mg 90 mg, Oral, Every 12 hours scheduled (2 times per day), First dose on Mon06/08/20 at 2100, DO NOT CRUSH Given 06/25/2020 8:35 AM EST 90 mg Given 06/24/2020 8:54 PM EST 90 mg Given 06/24/2020 9:51 AM EST 90 mg ondansetron (ZOFRAN) tablet 4 mg 4 mg, Oral, Every 6 hours PRN, Nausea and/or Vomiting, Starting on Mon06/08/20 at 2037, If unrelieved by promethazine Given 06/08/2020 10:40 PM EDT 4 mg oxyCODONE (ROXICODONE) immediate release tablet 10 mg 10 mg, Oral, Every 4 hours PRN, severe pain (NRS 7-10), Starting on Mon06/09/20 at 0616, If on IV and PO pain medications, use IV if patient cannot tolerate oral. Given 06/25/2020 1:41 PM EST 10 mg Given 06/24/2020 10:21 PM EST 10 mg Given 06/24/2020 3:46 PM EST 10 mg oxyCODONE (ROXICODONE) immediate release tablet 15 mg 15 mg, Oral, Once, On Mon06/13/20 at 1000, For 1 dose Given 06/13/2020 10:45 AM EDT 15 mg oxyCODONE (ROXICODONE) immediate release tablet 5 mg 5 mg, Oral, Every 4 hours PRN, moderate pain (NRS-4-6), Starting on Mon06/09/20 at 0616, If on IV and PO pain medications, use IV if patient cannot tolerate oral. pantoprazole (PROTONIX) EC tablet 40 mg 40 mg, Oral, Daily6, First dose on Mon06/09/20 at 0600, Do Not Crush Given 06/15/2020 4:59 AM EST 40 mg Given 06/14/2020 4:48 AM EST 40 mg Given 06/13/2020 5:37 AM EDT 40 mg pantoprazole (PROTONIX) EC tablet 40 mg 40 mg, Oral, 2 times daily, First dose (after last modification) on Mon06/15/20 at 2100, Do Not Crush Given 06/25/2020 8:35 AM EST 40 mg Given 06/24/2020 8:53 PM EST 40 mg Given 06/24/2020 9:51 AM EST 40 mg polyethylene glycol (MIRALAX) packet 17 g 17 g, Oral, Daily as needed, Other, mild constipation (no BM for 24 hrs), Starting on Mon06/08/20 at 2021 Given 06/20/2020 2:24 PM EST 17 g Given 06/17/2020 9:12 AM EST 17 g Given 06/11/2020 6:23 PM EDT 17 g proMETHazine (PHENERGAN) tablet 12.5 mg 12.5 mg, Oral, Every 6 hours PRN, Nausea, Vomiting, Starting on Mon06/08/20 at 2036, 1st line Given 06/21/2020 9:55 PM EST 12.5 mg Given 06/19/2020 5:36 AM EST 12.5 mg Given 06/18/2020 8:18 PM EST 12.5 mg quetiapine (SEROQUEL) half tablet 12.5 mg 12.5 mg, Oral, At Bedtime (2099), First dose on Mon06/08/20 at 2100, PRECUT BY PHARMACY Given 06/24/2020 8:52 PM EST 12.5 mg Given 06/23/2020 10:08 PM EST 12.5 mg Given 06/22/2020 8:58 PM EST 12.5 mg senna-docusate (SENNA-S) 8.6-50 mg per tablet 2 tablet 2 tablet, Oral, 2 times daily PRN, Constipation, (no bowel movement in 24 hrs after miralax), Starting on Mon06/08/20 at 2022 sodium bicarbonate 650 MG tablet Starting on Mon06/15/20 at 1104, For 1 dose, Created by [facility] sodium bicarbonate tablet 1,300 mg 1,300 mg, Oral, Once, On Mon06/15/20 at 1130, For 1 dose Given 06/15/2020 11:23 AM EST 1,300 mg sodium chloride 0.9 % infusion 2,000 mL 2,000 mL, MISCELLANEOUS, As needed, for use during dialysis treatment (see admin instructions), Starting on Mon06/10/20 at 0809, For machine prime, rinse back PRN flush and bolus for symptomatic hypotension treatment management New Bag 06/24/2020 11:00 AM EST 1,000 mLs New Bag 06/22/2020 12:22 PM EST 2,000 mLs New Bag 06/19/2020 12:34 PM EST 1,000 mLs terazosin (HYTRIN) capsule 10 mg 10 mg, Oral, At Bedtime (2099), First dose on Mon06/08/20 at 2100 Given 06/24/2020 8:53 PM EST 10 mg Given 06/23/2020 10:11 PM EST 10 mg Given 06/22/2020 8:58 PM EST 10 mg vancomycin (VANCOCIN) 1,000 mg in sodium chloride 0.9% 250 mL ADDaptor IVPB 1,000 mg, Intravenous, Administer over 60 Minutes, Once, Please give dose after dialysis Use ADDaptor product - Mix Thoroughly Before Administration, Indication? Infection-Suspected, Site of diagnosed infections (select all that apply): Musculoskeletal, Type of Therapy: Modification of Therapy New Bag 06/10/2020 6:30 PM EDT 1,000 mg 250 mL/ hr vancomycin (VANCOCIN) 1,000 mg in sodium chloride 0.9% 250 mL ADDaptor IVPB 1,000 mg, Intravenous, Administer over 60 Minutes, Every Monday, Monday, Monday (Once per day on Mon), Please give dose after dialysis Use ADDaptor product - Mix Thoroughly Before Administration, Indication? Infection-Suspected, Site of diagnosed infections (select all that apply): Musculoskeletal, Type of Therapy: New Therapy New Bag 06/24/2020 11:57 AM EST 1,000 mg 2 50 mL/hr Started During Downtime 06/22/2020 10:00 AM EST 1,000 mg 250 mL/hr New Bag 06/19/2020 1:50 PM EST 1,000 mg 250 mL/hr documented in this encounter Active and Recently Administered Medications Times are shown in EST. Scheduled Medication Order 06/23/2020 06/24/2020 06/25/2020 carBAMazepine (TEGRETOL) tablet 200 mg 200 mg, Oral, At Bedtime (2100), First dose on Mon06/08/20 at 2100 2212 (Given - Provider: Britney Wood RN) 2053 (Given - Provider: Maru Benedict RN) cycloSPORINE modified (NEORAL) capsule 100 mg 100 mg, Oral, 2 times daily, First dose (after last modification) on Mon06/19/20 at 2100, LEVEL 2 HAZARDOUS MEDICATION 0949 (Given - Provider: Barbara Jay, JANA)2211 (Given - Provider: Britney Wood RN) 0951 (Given - Provider: Barbara Jay, JANA)2053 (Given - Provider: Maru Benedict, JANA) 0836 (Given - Provider: Maru Bianchi RN) entecavir (BARACLUDE) tablet 0.5 mg 0.5 mg, Oral, Every 7 days, First dose on Mon06/09/20 at 0600, ADMINISTER ON EMPTY STOMACH (2 HOURS BEFORE OR AFTER MEALS). LEVEL 2 HAZARDOUS MEDICATION 0605 (Given - Provider: Britney Wood RN) epoetin giancarlo-epbx (RETACRIT) 3,000 unit/mL solution 6,000 Units 6,000 Units, Intravenous, Every Monday, Monday, Monday (Once per day on Mon), Indications: Anemia in Chronic Kidney Disease, First dose (after last modification) on Mon06/12/20 at 1300 1155 (Given - Provider: Danya Shipley RN) gabapentin (NEURONTIN) capsule 100 mg 100 mg, Oral, 2 times daily, First dose (after last modification) on Mon06/13/20 at 0900 0949 (Given - Provider: Barbara Jay RN)2208 (Given - Provider: Britney Wood RN) 0952 (Given - Provider: Barbara Jay, JANA)205 (Given - Provider: Maru Benedict RN) 0836 (Given - Provider: Maru Bianchi RN) heparin (porcine) injection 5,000 Units 5,000 Units, Subcutaneous, Every 8 hours, First dose on 06/08/20 at 2100 0605 (Given - Provider: Britney Wood RN)1353 (Given - Provider: Barbara Jay RN)2209 (Given - Provider: Britney Wood RN) 0615 (Given - Provider: Britney Wood RN)1546 (Given - Provider: Barbara Jay RN)2051 (Given - Provider: Maru Benedict RN) 0632 (Given - Provider: Maru Benedict RN)1159 (Given - Provider: Maru Bianchi RN) hydrALAZINE (APRESOLINE) tablet 100 mg 100 mg, Oral, Every 8 hours scheduled (3 times per day), First dose on Mon06/08/20 at 2100 0606 (Given - Provider: Britney Wood RN)1353 (Given - Provider: Barbara Jay RN)2208 (Given - Provider: Britney Wood RN) 0615 (Given - Provider: Britney Wood RN)1546 (Given - Provider: Barbara Jay RN)205 (Given - Provider: Maru Benedict RN) 0632 (Given - Provider: Maru Benedict RN)1159 (Given - Provider: Maru Bianchi RN) insulin glargine (LANTUS) injection 10 Units 10 Units, Subcutaneous, At Bedtime (2100), First dose on Bobbi 06/18/20 at 2100, DO NOT HOLD WITHOUT PRESCRIBER ORDER HIGH ALERT MEDICATION 2212 (Given - Provider: Britney Wood RN) 2118 (Given - Provider: Maru Benedict RN) insulin lispro (humaLOG) injection 0-5 Units 0-5 Units, Subcutaneous, 3 times daily before meals, First dose on Mon06/09/20 at 0900, HIGH ALERT MEDICATION 1004 (Not Given - Provider: Barbara Jay RN - Reason: Order parameters not met)1355 (Not Given - Provider: Barbara Jay RN - Reason: Order parameters not met)1753 (Given - Provider: Barbara Jay RN) 1010 (Given - Provider: Barbara Jay RN)1551 (Given - Provider: Barbara Jay RN)1739 (Given - Provider: Maru Bianchi RN) 0840 (Not Given - Provider: Maru Bianchi RN - Reason: Order parameters not met)1300 (Due) insulin lispro (humaLOG) injection 6 Units 6 Units, Subcutaneous, 3 times daily before meals, First dose on Mon06/20/20 at 1300, HIGH ALERT MEDICATION Onset of action is rapid. Give dose 5-10 minutes before meal. Have meal at bedside. 0957 (Given - Provider: Barbara Jay RN)1355 (Given - Provider: Barbara Jay RN)1753 (Given - Provider: Barbara Jay RN) 1011 (Given - Provider: Barbara Jay RN)1551 (Given - Provider: Barbara Jay RN)1740 (Given - Provider: Maru Bianchi RN) 0904 (Given - Provider: Maru Bianchi RN)1300 (Due) lidocaine (LIDODERM) 5 % 1 patch 1 patch, Transdermal, Every 24 hours, First dose on Mon06/19/20 at 1030, LEAVE PATCH ON FOR 12 HOURS,THEN REMOVE FOR 12 HOURS. 0948 (Patch Applied - Provider: Barbara Jay RN - Comment: right hip)2219 (Patch Removed - Provider: Britney Wood RN) 0958 (Patch Applied - Provider: Barbara Jay RN - Comment: right hip)210 (Patch Removed - Provider: Maru Benedict RN) 0844 (Patch Applied - Provider: Maru Bianchi RN - Comment: R hip)2043 (Due: Patch Removed - Provider: Maru Bianchi RN) LORazepam (ATIVAN) tablet 0.5 mg(Linked Group 1) 0.5 mg, Oral, 2 times daily, First dose on Mon06/14/20 at 2100 0949 (Given - Provider: Barbara Jay RN)2208 (Given - Provider: Britney Wood RN) 0952 (Given - Provider: Barbara Jay RN)2053 (Given - Provider: Maru Benedict RN) 0835 (Given - Provider: Maru Bianchi RN) melatonin Tab 6 mg 6 mg, Oral, At Bedtime (2099), First dose on Mon06/08/20 at 2100, FOR INSOMNIA 2207 (Given - Provider: Britney Wood RN) 2052 (Given - Provider: Maru Benedict RN) methocarbamoL (ROBAXIN) tablet 500 mg 500 mg, Oral, 4 times a day, First dose on Mon06/08/20 at 2099 0949 (Given - Provider: Barbara Jay RN)1353 (Given - Provider: Barbara Jay RN)1752 (Given - Provider: Barbara Jay RN)2207 (Given - Provider: Britney Wood RN) 0952 (Given - Provider: Barbara Jay RN)1550 (Given - Provider: Barbara Jay RN)1739 (Canceled Entry - Provider: Barbara Jay RN)1745 (Given - Provider: Maru Bianchi RN)2051 (Given - Provider: Maru Benedict RN) 0835 (Given - Provider: Maru Bianchi RN)1159 (Given - Provider: Maru Bianchi RN) metoprolol tartrate (LOPRESSOR) tablet 25 mg 25 mg, Oral, 2 times daily, First dose on Mon06/08/20 at 2100 0950 (Given - Provider: Barbara Jay RN)2208 (Given - Provider: Britney Wood RN) 0952 (Given - Provider: Barbara Jay RN)2053 (Given - Provider: Maru Benedict RN) 0835 (Given - Provider: Maru Bianchi RN) NIFEdipine (PROCARDIA-XL) 24 hr tablet 90 mg 90 mg, Oral, Every 12 hours scheduled (2 times per day), First dose on Mon06/08/20 at 2100, DO NOT CRUSH 0949 (Given - Provider: Barbara Jay RN)2210 (Given - Provider: Britney Wood RN) 09 (Given - Provider: Barbara Jay, RN)2053 (Given - Provider: Maru Benedict RN) 0835 (Given - Provider: Maru Bianchi RN) pantoprazole (PROTONIX) EC tablet 40 mg 40 mg, Oral, 2 times daily, First dose (after last modification) on Mon06/15/20 at 2100, Do Not Crush 0950 (Given - Provider: Barbara Jay RN)2207 (Given - Provider: Britney Wood RN) 950 (Given - Provider: Barbara Jay RN)2052 (Given - Provider: Maru Benedict RN) 0835 (Given - Provider: Maru Bianchi RN) quetiapine (SEROQUEL) half tablet 12.5 mg 12.5 mg, Oral, At Bedtime (2099), First dose on Mon06/08/20 at 2100, PRECUT BY PHARMACY 2207 (Given - Provider: Britney Wood RN) 2051 (Given - Provider: Maru Benedict RN) terazosin (HYTRIN) capsule 10 mg 10 mg, Oral, At Bedtime (2099), First dose on Mon06/08/20 at 2100 221 (Given - Provider: Britney Wood RN) 2052 (Given - Provider: Maru Benedict RN) vancomycin (VANCOCIN) 1,000 mg in sodium chloride 0.9% 250 mL ADDaptor IVPB 1,000 mg, Intravenous, Administer over 60 Minutes, Every Monday, Monday, Monday (Once per day on Mon), Please give dose after dialysis Use ADDaptor product - Mix Thoroughly Before Administration, Indication? Infection-Suspected, Site of diagnosed infections (select all that apply): Musculoskeletal, Type of Therapy: New Therapy 1157 (New Bag - Provider: Danya Shipley RN) PRN Medication Order 06/23/2020 06/24/2020 06/25/2020 acetaminophen (TYLENOL) tablet 650 mg 650 mg, Oral, Every 4 hours PRN, Fever, Headaches, Starting on Mon06/09/20 at 0630, Maximum dose of acetaminophen is 4000 mg (4 grams) from all sources in 24 hours. 1205 (Given - Provider: Maru Bianchi RN) albuterol (PROVENTIL) nebulizer solution 2.5 mg 2.5 mg, Nebulization, RT every 4 hours PRN, Wheezing, Starting on Bobbi 06/11/20 at 2239 bisacodyL (DULCOLAX) EC tablet 10 mg 10 mg, Oral, Daily as needed, Constipation, for severe constipation (no bowel movement 24 hrs after senna-s), Starting on Mon06/08/20 at 2027 dextrose 50 % in water (D50W) iv Syrg 25 mL(Linked Group 2) 25 mL, Intravenous, Every 15 min PRN, for glucose < 70 and alert but can not be corrected, orally or via feeding tube, Starting on Mon06/08/20 at 2038, Recheck blood sugar in 15 minutes and repeat treatment if glucose still < 70. dextrose 50 % in water (D50W) iv Syrg 50 mL(Linked Group 2) 50 mL, Intravenous, Every 15 min PRN, for glucose < 70 and not alert, Starting on Mon06/08/20 at 2038, Recheck glucose in 15 minutes and repeat treatment if glucose still < 70. glucose chewable tablet 12 g 12 g, Oral, Every 15 min PRN, Low blood sugar, for glucose 50-70 mg/dL, Starting on Mon06/08/20 at 2038, Recheck glucose in 15 minutes and if glucose still < 70, repeat treatment. DO NOT ADMINISTER VIA FEEDING TUBE heparin, porcine (PF) injection Soln 500 Units 500 Units, Intravenous, Use as directed PRN, for Bolus Dose prior to each dialysis. To be given by Dialysis Nurse., Starting on Mon06/17/20 at 1259 heparin, porcine (PF) injection Soln 500 Units/hr (0.5 mL/hr), Intravenous, Use as directed PRN, for Maintenance Dose during Hemodialysis. Stop Infusion per Protocol based on Access Type., Starting on Mon06/17/20 at 1259 lidocaine (PF) 2% (20 mg/mL) Soln 20 mg 20 mg (1 mL), Intradermal, Use as directed PRN, for fistula or graft access during Hemodialysis, Starting on Mon06/10/20 at 0842, For Intradermal use only. 1 mL = 20 mg. LORazepam (ATIVAN) tablet 0.5 mg(Linked Group 1) 0.5 mg, Oral, Daily as needed, Anxiety, Starting on Mon06/14/20 at 1052 1341 (Given - Provider: Maru Bianchi RN) oxyCODONE (ROXICODONE) immediate release tablet 10 mg(Linked Group 3) 10 mg, Oral, Every 4 hours PRN, severe pain (NRS 7-10), Starting on Mon06/09/20 at 0616, If on IV and PO pain medications, use IV if patient cannot tolerate oral. 2128 (Given - Provider: Britney Wood RN) 0951 (Given - Provider: Barbara Jay RN)1546 (Given - Provider: Barbara Jay RN)2221 (Given - Provider: Maru Benedict RN) 1341 (Given - Provider: Maru Bianchi RN) oxyCODONE (ROXICODONE) immediate release tablet 5 mg(Linked Group 3) 5 mg, Oral, Every 4 hours PRN, moderate pain (NRS-4-6), Starting on Mon06/09/20 at 0616, If on IV and PO pain medications, use IV if patient cannot tolerate oral. 2128 (See Alternative - Provider: Britney Wood RN) 0951 (See Alternative - Provider: Barbara Jay RN)1546 (See Alternative - Provider: Barbara Jay RN)2221 (See Alternative - Provider: Maru Benedict RN) 1341 (See Alternative - Provider: Maru Bianchi RN) polyethylene glycol (MIRALAX) packet 17 g 17 g, Oral, Daily as needed, Other, mild constipation (no BM for 24 hrs), Starting on Mon06/08/20 at 2021 proMETHazine (PHENERGAN) tablet 12.5 mg 12.5 mg, Oral, Every 6 hours PRN, Nausea, Vomiting, Starting on Mon06/08/20 at 2036, 1st line senna-docusate (SENNA-S) 8.6-50 mg per tablet 2 tablet 2 tablet, Oral, 2 times daily PRN, Constipation, (no bowel movement in 24 hrs after miralax), Starting on Mon06/08/20 at 2021 sodium chloride 0.9 % infusion 2,000 mL 2,000 mL, MISCELLANEOUS, As needed, for use during dialysis treatment (see admin instructions), Starting on Mon06/10/20 at 0809, For machine prime, rinse back PRN flush and bolus for symptomatic hypotension treatment management 1100 (New Bag - Provider: Halima Irwin LPN) Linked Groups Order Group 1: LORazepam (ATIVAN) tablet 0.5 mgJump to med 0.5 mg, Oral, 2 times daily, First dose on Mon06/14/20 at 2100 And LORazepam (ATIVAN) tablet 0.5 mgJump to med 0.5 mg, Oral, Daily as needed, Anxiety, Starting on Mon06/14/20 at 1052 Group 2: dextrose 50 % in water (D50W) iv Syrg 25 mLJump to med 25 mL, Intravenous, Every 15 min PRN, for glucose < 70 and alert but can not be corrected, orally or via feeding tube, Starting on Mon06/08/20 at 2038, Recheck blood sugar in 15 minutes and repeat treatment if glucose still < 70. Or dextrose 50 % in water (D50W) iv Syrg 50 mLJump to med 50 mL, Intravenous, Every 15 min PRN, for glucose < 70 and not alert, Starting on Mon06/08/20 at 2038, Recheck glucose in 15 minutes and repeat treatment if glucose still < 70. Group 3: oxyCODONE (ROXICODONE) immediate release tablet 5 mgJump to med 5 mg, Oral, Every 4 hours PRN, moderate pain (NRS-4-6), Starting on Mon06/09/20 at 0616, If on IV and PO pain medications, use IV if patient cannot tolerate oral. Or oxyCODONE (ROXICODONE) immediate release tablet 10 mgJump to med 10 mg, Oral, Every 4 hours PRN, severe pain (NRS 7-10), Starting on Mon06/09/20 at 0616, If on IV and PO pain medications, use IV if patient cannot tolerate oral. documented in this encounter Additional Health Concerns Assessment Noted Time PHQ-9 Depression Total Score: 0 12/06/19 18 3:00 PM EDT documented as of this encounter Care Teams Clay Pigeon Setter Relationship Specialty Start Date End Date Edgar Fournier MD [address] [place] [address] [place] [address] PCP - General 08/18/17 06/23/21 Maile Valles, RN Txp Post Coordinator Transplant Hepatology 11/07/17 Jack Ordoñez MD [address] [place] [phone] Consulting Physician Transplant Hepatology 01/05/18 Estephania Sharif, PharmD Pharmacist Pharmacist 11/11/19 documented as of this encounter
--- OUTSIDE RECORDS SUMMARY | 2024-07-12 12:39 | XMS_ITS | Encounter Summary ---
Author Organization [facility] Address [address] [place] [address] Care Team Providers Care Hair Blender Name Role Phone Edgar Fournier MD Primary Care Provider [phone] Maile Valles RN Unavailable Unavail able Jack Ordoñez MD Unavailable [phone] Estephania Sharif PharmD Unavailable Christine vailable [...] release of HIV test results or diagnoses. [id number] Reason for Visit * Reason Comments Pap Medication Refill Encounter Details Date Type Department Care Team (Late st Contact Info) Description 06/09/2020 Pharmacy Services [facility] Specialty Pharmacy [address] [place] [address] Elmira Hussein I, RXT Social History Tobacco Use Types Packs/Day Years [...] as of this encounter Progress Notes * MERARY Palma - 06/09/2020 10:06 AM EDT MEDICATION ACCESS SERVICES Refill reordered for Cell[facility] from [facility] to [facility] [place]. Drug will be delivered to [facility] on 06/12/2020. Elmira Hussein [facility] phone fax documented in this encounter Plan of Treatment Upcoming Encounters Date Type Department Care Team (Late st Contact Info) Description 07/15/2024 9:00 AM EST Hospital Encounter [facility] Interventional Radiology [address] [place] [phone] Herve Carrillo MD [address] [facility] [address] [facility] [place] [phone] documented as of this encounter Visit Diagnoses Not on filedocumented in this encounter Additional Health Concerns Assessment Noted Time PHQ-9 Depression Total Score: 0 12/06/19 18 3:00 PM EDT documented as of this encounter Care Teams Hair Blender Relationship Specialty Start Date End Date Edgar Fournier MD [address] [place] [address] J[place]s [phone] PCP - General 08/18/17 06/23/21 Maile Valles, JANA Txp Post Coordinator Transplant Hepatology 11/07/17 Jack Ordoñez MD [facility] [place] [phone] Consulting Physician Transplant Hepatology 01/05/18 Estephania Sharif, PharmD Pharmacist Pharmacist 11/11/19 documented as of this encounter
--- OUTSIDE RECORDS SUMMARY | 2024-07-12 12:39 | XMS_ITS | Encounter Summary ---
Author Organization [facility] Address [address] [place] [address] Care Team Providers Care Embroidery Finisher Name Role Phone Edgar Fournier MD Primary Care Provider [phone] Maile Valles RN Unavailable Unavail able Jack Ordoñez MD Unavailable [phone] Estephania Sharif PharmD Unavailable Christine vailable [...] release of HIV test results or diagnoses. [id number] Reason for Visit * Reason Comments Results Encounter Details Date Type Department Care Team (Late st Contact Info) Description 06/23/2020 Telephone [facility] Liver Transplant at [address] [place] [phone] Maile Valles, JANA Results Social History [...] Telephone Encounter - Maile Valles RN - 06/23/2020 1:13 PM EST Labs from 06/22/20 reviewed. Cr 6.49 - on dialysis. LFTs normal. CSA 44 Will continue to monitor standing labs monthly. documented in this encounter Plan of Treatment Upcoming Encounters Date Type Department Care Team (Late st Contact Info) Description 07/15/2024 9:00 AM EST Hospital Encounter [facility] Interventional Radiology [address] [place] [phone] Herve Carrillo MD [address] [facility] 3200 [place] [address] documented as of this encounter Visit Diagnoses Not on filedocumented in this encounter Additional Health Concerns Assessment Noted Time PHQ-9 Depression Total Score: 0 12/06/19 18 3:00 PM EDT documented as of this encounter Care Teams Embroidery Finisher Relationship Specialty Start Date End Date Edgar Fournier MD [address] [place] [address] [place] [address] PCP - General 08/18/17 06/23/21 Maile Valles, RN Txp Post Coordinator Transplant Hepatology 11/07/17 Jack Ordoñez MD [address] [place] [phone] Consulting Physician Transplant Hepatology 01/05/18 Estephania Sharif, DarrianD Pharmacist Pharmacist 11/11/19 documented as of this encounter
--- OUTSIDE RECORDS SUMMARY | 2024-07-12 12:39 | XMS_ITS | Encounter Summary ---
Author Organization [facility] Address [address] [place] [address] Care Team Providers Care Pneumatic Tube Repairer Name Role Phone Edgar Fournier MD Primary Care Provider [phone] Maile Valles RN Unavailable Unavail able Jack Ordoñez MD Unavailable [phone] Estephania Sharif PharmD Unavailable Christnie vailable Source Comments This information has been [...] release of HIV test results or diagnoses. [id number] Reason for Visit * Reason Comments Pap Medication Refill Encounter Details Date Type Department Care Team (Late st Contact Info) Description 06/08/2020 Pharmacy Services [facility] Specialty Pharmacy [address] [place] [address] Elmira Hussein I, RXT Social History [...] have Coronavirus / COVID-19? No / Unsure 05/28/2020 4:20 PM EDT documented as of this encounter Progress Notes * MERARY Palma - 06/08/2020 10:34 AM EDT MEDICATION ACCESS SERVICES Refill reordered for Gengraf from [email or web address] [facility] [employer]. Drug will be delivered to [facility] in 7 - 10 business days. Elmira Hussein [facility] phone fax documented in this encounter Plan of Treatment Upcoming Encounters Date Type Department Care Team (Late st Contact Info) Description 07/15/2024 9:00 AM EST Hospital Encounter [facility] Interventional Radiology [address] [place] [phone] Herve Carrillo MD [address] [facility] 3200 [place] [phone] documented as of this encounter Visit Diagnoses Not on filedocumented in this encounter Additional Health Concerns Assessment Noted Time PHQ-9 Depression Total Score: 0 12/06/19 18 3:00 PM EDT documented as of this encounter Care Teams Pneumatic Tube Repairer Relationship Specialty Start Date End Date Edgar Fournier MD [address] [place] [address] [place] [phone] PCP - General 08/18/17 06/23/21 Maile Valles, JANA Txp Post Coordinator Transplant Hepatology 11/07/17 Jack Ordoñez MD [facility] [place] [phone] Consulting Physician Transplant Hepatology 01/05/18 Estephania Sharif, PharmD Pharmacist Pharmacist 11/11/19 documented as of this encounter
--- OUTSIDE RECORDS SUMMARY | 2024-07-12 12:39 | XMS_ITS | Encounter Summary ---
Author Organization [facility] Address [address] [place] [address] Care Team Providers Care Hydration Plant Operator Name Role Phone Edgar Fournier MD Primary Care Provider [phone] Maile Valles RN Unavailable Unavail able Jack Ordoñez MD Unavailable [phone] Estephania Sharif PharmD Unavailable Christine vailable [...] release of HIV test results or diagnoses. [id number] Encounter Details Date Type Department Care Team (Latest Contact Info) Description 06/09/2020 Travel Social History Tobacco Use Types Packs/Day [...] Hospital Encounter [facility] Interventional Radiology [address] [place] [phone] Herve Carrillo MD [address] [facility] [address] [place] [phone] documented as of this encounter Visit Diagnoses Not on filedocumented in this encounter Additional Health Concerns Assessment Noted Time PHQ-9 Depression Total Score: 0 12/06/19 18 3:00 PM EDT documented as of this encounter Care Teams Hydration Plant Operator Relationship Specialty Start Date End Date Edgar Fournier MD [address] [place] [address] [place] [address] PCP - General 08/18/17 06/23/21 Maile Valles, JANA Txp Post Coordinator Transplant Hepatology 11/07/17 Jack Ordoñez MD [address] [place] [phone] Consulting Physician Transplant Hepatology 01/05/18 Estephania Sharif, DarrianD Pharmacist Pharmacist 11/11/19 documented as of this encounter
--- OUTSIDE RECORDS SUMMARY | 2024-07-12 12:41 | XMS_ITS | Encounter Summary ---
Author Organization [facility] Address [facility] [place] [address] Care Team Providers Care Human Resources Benefits Coordinator Name Role Phone Edgar Fournier MD Primary Care Provider [phone] Maile Valles RN Unavailable Unavail able Jack Ordoñez MD Unavailable [phone] Estephania Sharif PharmD Unavailable Christine vailable [...] release of HIV test results or diagnoses. [id number] Reason for Visit * Auth/Cert Specialty Diagnoses / Procedures Referred By Contac t Referred To Contact Transplant Diagnoses POST-OP INFECTION [address] [place] [address] Phone: tel: Referral ID Status Reason Start Date Expiration Date Visits Re quested Visits Authorized [id number] 1 1 Encounter Details Date Type Department Care Team (Late st Contact Info) Description 05/29/2020 2:22 PM EDT Anesthesia Event [facility] ENDOSCOPY [address] [place] [phone] William Fatima MD Trester, Joshua Timothy, MD [address] [facility] [place] [phone] Anesthesia Record Procedure Summary Procedure Name Responsible Anesthesiologist Anesthesia Start Time Anesthesia Stop Time EGD WITH BIOPSY William Fatima MD 05/29/20 1422 1527 Events Date Time Event Comment 05/29/2020 1422 An Start 1422 An Start Data 1423 An Induction 1428 Time Out 1434 Quick Note BP on forearm- moved to calf 1438 Quick Note Massive coffeeg round emesis in esophagus/oropharynx. SXN per INSURANCE CLAIMS SPECIALIST/GI. Procedure stopped 1440 An Help Coffee ground e mesis. 1442 Quick Note Called to room after large coffee ground emesis. Patient awake and conversant on my arrival, in lateral decubitus position with no further vomiting. Appeared to be somewhat hypotensive at that time which improved after repositioning of cuff. Discussion of postponing the case vs need to proceed occurred with GI team who felt it was prudent to proceed. We then performed an RSI after pre-oxygenating for several minutes. Patient was stable throughout this induction. 1444 An Intubation 1516 Quick Note Tracheal sxn sh owed coffeeground emesis from ETT. Lavaged with saline 10ml and suctioned. Extubated w/o issue. 1519 An Emergence 1519 Remove Airway Device 1520 an stop data 1527 An Stop Meds Name Total fentanyl IV (SUBLIMAZE) injection 50 mcg /ml 100 mcg lidocaine (XYLOCAINE) 20 mg/mL (2%) inje ction 50 mg propofol (DIPRIVAN) 10 mg/ml IV injectio n (BOLUS) 200 mg rocuronium (ZEMURON) 10 mg/mL injection 50 mg phenylephrine (FAWN-SYNEPHRINE) injection 400 mcg sugammadex (BRIDION) IV injection 200 mg lactated ringers infusion 500 mL * Agents Name N2O Auxiliary O2 O2 N2O Air Sevoflurane * Blood No blood administrations on file. Lines, Drains, and Airways Type Details Placement Removal HD Catheter 07/23/19; 1018; IR; Sterile; d. rusty p.a.; Dual Lumen (Vas Cath); Tunneled (covidien. palindrome. si chronic catheter kit. ex: lot: [id number]); Right; Internal Jugular; (14.5); yes; 06/09/20; 0907; Not present upon assessment 07/23/19 1018 by William Hilliard RN 06/09/20 0907 by Zoila Sanders RN Anesthesia Airway Device 07/24/19; 1253; Nasal Cannula Salter; Capnograph; 05/29/20; 1519 07/24/19 1253 by Raquel Israel CRNA 05/29/20 1519 by Dontae Day CRNA Peripheral IV 05/29/20; 1420; 20 G ; Anterior, Right; Upper arm; Chlorhexidine; Standard; Tolerated well 05/29/20 1420 by Moises Carter RN 05/29/20 2300 by Ricardo Matthews, JANA Anesthesia Airway Device 05/29/20; 1444; I.V., Rapid Sequence; Standard; Mac; 4; Oral; Grade I View; ETT; 7.5 mm; Cuffed; 8 mL; 22 cm; Stylet Standard; 1; INSURANCE CLAIMS SPECIALIST; Day; Capnograph; Yes; 05/29/20; 1519 05/29/20 1444 by Dontae Day CRNA 05/29/20 1519 by Dontae Day CRNA Peripheral IV 05/29/20; 1457; 20 G ; Right; Forearm; Alcohol; None; Standard; Tolerated well 05/29/20 1457 by Dontae Day CRNA 05/29/20 2253 by Ricardo Matthews RN documented in this encounter Social History [...] as of this encounter Progress Notes * William Fatima MD - 05/29/2020 4:31 PM EDT Anesthesia Post Note Patient: Aiden Stauffer Jr. Procedure(s) Performed: Procedure(s): EGD WITH BIOPSY Anesthesia type: general Patient location: Endoscopy PACU Post pain: Adequate analgesia Post assessment: no apparent anesthetic complications Was a question of aspiration intraop, however patient remains stable and cxr appears clear Last Vitals: Vitals: 05/29/20 1530 05/29/20 1545 05/29/20 1600 05/29/20 1615 BP: 127/61 116/58 111/68 127/90 BP Location: Patient Position: Pulse: Resp: 20 18 18 18 Temp: TempSrc: SpO2: 91% 98% 93% 91% Weight: Post vital signs: stable Level of consciousness: awake, alert and oriented Complications: None documented in this encounter H&P Notes * William Fatima MD - 05/29/2020 2:04 PM EDT [facility] DEPARTMENT OF ANESTHESIOLOGY PRE-PROCEDURAL EVALUATION Aiden Stauffer Jr. is a 45 y.o. year old male presenting for: Procedure(s): EGD WITH BIOPSY Surgeon: Rashid Hedrick MD Chief Complaint Review of Systems Anesthesia Evaluation Patient summary reviewed and nursing notes reviewed. No history of anesthetic complications I have reviewed the History and Physical Exam, any relevant changes are noted in the anesthesia pre-operative evaluation. Cardiovascular: Exercise tolerance: Pérez Met score: 4 - Raking leaves. Weeding or pushing a power mower.Hypertension is. (-) past AL, angina. Neuro/Muscoloskeletal/Psych: (-) neuromuscular disease, TIA, no depression. Pulmonary: (-) asthma, sleep apnea, no PE. GI/Hepatic/Renal: (+) liver disease. GERD is. Chronic renal disease. Endo/Other: (+) anemia (HCT 22.4). Diabetes. Comments: Morbid obesity BMI 45 Past Medical History Past Medical History: Diagnosis [...] file Gets together: Not on file Attends [employer] service: Not on file Active member of [...] Meds: Prior to Admission medications as of 05/29/20 1401 Medication Sig Taking? ALPRAZolam (XANAX) 1 MG tablet Take by mouth. aspirin 81 MG chewable tablet Chew 1 tablet (81 mg total) by mouth daily with breakfast. blood sugar diagnostic Strp Use to test blood sugar up to 4 times a day. Diagnosis for use: E 9.65.For use with One Touch Verio meters. blood-glucose meter (Nu3 VERIO SYSTEM) [facility] Use as instructed. carBAMazepine (TEGRETOL) 200 mg tablet Take 200 mg by mouth at bedtime. cycloSPORINE modified (NEORAL) 25 MG capsule Take 2 capsules (50 mg total) by mouth 2 times a day. doxazosin (CARDURA) 8 MG tablet 8 mg daily. entecavir (BARACLUDE) 0.5 MG tablet Take 1 tablet (0.5 mg total) by mouth every 7 days. ergocalciferol (VITAMIN D2) 50,000 unit capsule Take 50,000 Units by mouth. Twice a week famotidine (PEPCID) 20 MG tablet Take 20 mg by mouth daily. gabapentin (NEURONTIN) 100 MG capsule Take 4 capsules (400 mg total) by mouth daily. hydrALAZINE (APRESOLINE) 50 MG tablet Take 100 mg by mouth 3 times a day. insulin NPH isoph U-100 human (HUMULIN N NPH INSULIN KWIKPEN) 100 unit/mL (3 mL) InPn Inject subcutaneously 20 units in the AM and 8 units in the PM. Patient taking differently: Inject subcutaneously 48 units in the AM and 24 units in the PM as needed lancets (EnevateUCH DELICA LANCETS) 33 gauge Mis Use 1 strip as directed 4 times daily before meals and at bedtime. mycophenolate (CELLCEPT) 250 mg capsule Take 1 capsule (250 mg total) by mouth 2 times a day. NIFEdipine (PROCARDIA-XL) 90 MG (OSM) 24 hr tablet Take 90 mg by mouth 2 times a day. ondansetron (ZOFRAN-ODT) 4 MG disintegrating tablet every 8 hours as needed. pen needle, diabetic 32 gauge x /32 Ndle Use as directed to inject insulin 4 times daily. polyethylene glycol (MIRALAX) 17 gram packet Take 17 g by mouth 2 times a day as needed. Inpatient Meds: Scheduled: Continuous: PRN: Vital Signs Wt Readings from Last 3 Encounters: 05/28/20 (!) 278 lb (126.1 kg) 03/16/20 (!) 278 lb (126.1 kg) 03/12/20 (!) 278 lb (126.1 kg) Ht Readings from Last 3 Encounters: 03/12/20 5' 7 (1.702 m) 03/11/20 5' 7 (1.702 m) 03/11/20 5' 7 (1.702 m) Temp Readings from Last 3 Encounters: 05/29/20 97.9 ??F (36.6 ??C) 03/12/20 97.4 ??F (36.3 ??C) (Temporal) 09/19/19 98 ??F (36.7 ??C) BP Readings from Last 3 Encounters: 05/29/20 93/65 03/16/20 (!) 162/98 03/12/20 170/76 Pulse Readings from Last 3 Encounters: 05/29/20 122 03/16/20 90 03/12/20 92 @LASTSAO2(3)@ Physical Exam Airway: Mallampati: II Mouth Opening: >2 FB TM distance: > = 3 FB Neck ROM: full Dental: Pulmonary: (-) no rhonchi, no wheezes and no PE. Cardiovascular: Rhythm: regular Rate: normal Neuro/Musculoskeletal/Psych: Mental status: alert and oriented to person, place and time. Abdominal: Current OB Status: Other Findings: Laboratory Data Lab Results Component Value Date WBC 8.3 05/29/2020 HGB 7.3 (L) 05/29/2020 HCT 23.4 (L) 05/29/2020 MCV 93.2 05/29/2020 PLT 399 05/29/2020 No results found for: ABORH Lab Results Component Value Date GLUCOSE 115 (H) 05/28/2020 BUN 88 (H) 05/28/2020 CO2 23 05/28/2020 CREATININE 13.63 (H) 05/28/2020 K 5.5 (H) 05/28/2020 NA 137 05/28/2020 CL 96 (L) 05/28/2020 CALCIUM 9.5 05/28/2020 ALBUMIN 3.6 05/28/2020 ALBUMIN 3.6 05/28/2020 PROT 7.0 05/28/2020 ALKPHOS 114 05/28/2020 ALT 18 05/28/2020 AST 12 (L) 05/28/2020 BILITOT 0.4 05/28/2020 Lab Results Component Value Date INR 1.3 (H) 05/29/2020 No results found for: PREGTESTUR, PREGSERUM, HCG, HCGQUANT Anesthesia Plan ASA 3 Current non-smoker Anesthesia Type: MAC. PONV Risk Factors: current non-smoker, plan for postoperative opioid use. (Plan MAC with pIV access. Blood on standby if needed given poor starting level. Endo PACU postop) Anesthetic plan and risks discussed with patient. Plan discussed with INSURANCE CLAIMS SPECIALIST. documented in this encounter Plan of Treatment Upcoming Encounters Date Type Department Care Team (Late st Contact Info) Description 07/15/2024 9:00 AM EST Hospital Encounter [facility] Interventional Radiology [address] [place] [phone] Herve Carrillo MD [address] [facility] 3[address] [place] [phone] documented as of this encounter Visit Diagnoses * Transfer of Care - Dontae Day CRNA - 05/29/2020 3:27 PM EDT Anesthesia Transfer of Care Note Patient: Aiden Stauffer Procedure(s) Performed: Procedure(s): EGD WITH BIOPSY Patient location: PACU Anesthesia type: general Airway Device on Arrival to PACU/ICU: Nasal Cannula IV Access: Peripheral Monitors Recommended to be Used During PACU/ICU: Standard Monitors Outstanding Issues to Address: None Level of Consciousness: awake, alert and oriented Post vital signs: Vitals: 05/29/20 1242 BP: 93/65 Pulse: 122 Resp: 18 Temp: 97.9 ??F (36.6 ??C) SpO2: 90% Complications: Possible aspiration Date 05/28/20 1500 - 05/29/20 0659 05/29/20 0700 - 05/30/20 0659 Shift 7734-9914 3613-4592 24 Hour Total 4508-9355 5690-6826 6811-7186 24 Hour Total INTAKE P.O. 60 60 P.O. 60 60 I.V.(mL/kg) 500(4) 500(4) Volume (mL) (lactated Ringers infusion) 500 500 Shift Total(mL/kg) 560(4.4) 560(4.4) OUTPUT Urine(mL/kg/hr) 0(0) 0 Urine 0 0 Urine Occurrence 0 x 0 x Emesis/NG output 0 0 Emesis 0 0 Emesis Occurrence 1 x 1 x 0 x 0 x Other 1700 1700 Other 1700 1700 Stool Stool Occurrence 1 x 1 x Shift Total(mL/kg) 0(0) 1700(13.5) 1700(13.5) Weight (kg) 126.1 126.1 126.1 126.1 126.1 126.1 126.1 documented in this encounter Administered Medications Inactive Administered Medications - up to 3 most recent administrations Medication Order MAR Action Action Date Dose Rate Site fentaNYL (SUBLIMAZE) injection Intravenous, PRN - One Step Medication Only, Starting on Mon05/29/20 at 1516, Anesthesia Intra-op Given 05/29/2020 3:16 PM EDT 50 mcg Given 05/29/2020 3:13 PM EDT 50 mcg lactated Ringers infusion Continuous - One Step Medications Only, Starting on Mon05/29/20 at 1422, Anesthesia Intra-op New Bag 05/29/2020 2:22 PM EDT lidocaine (PF) 20 mg/mL (2 %) Soln Intravenous, PRN - One Step Medication Only, Starting on Mon05/29/20 at 1423, Anesthesia Intra-op Given 05/29/2020 2:23 PM EDT 50 mg phenylephrine (FAWN-SYNEPHRINE) injection PRN - One Step Medication Only, Starting on Mon05/29/20 at 1437, Anesthesia Intra-op Given 05/29/2020 2:39 PM EDT 200 mcg Given 05/29/2020 2:37 PM EDT 200 mcg propofol 10 mg/ml (DIPRIVAN) injection PRN - One Step Medication Only, Starting on Mon05/29/20 at 1423, Anesthesia Intra-op Given 05/29/2020 2:43 PM EDT 10 0 mg Given 05/29/2020 2:27 PM EDT 50 mg Given 05/29/2020 2:23 PM EDT 50 mg rocuronium (ZEMURON) injection PRN - One Step Medication Only, Starting on Mon05/29/20 at 1443, Anesthesia Intra-op Given 05/29/2020 2:43 PM EDT 50 mg sugammadex (BRIDION) IV injection PRN - One Step Medication Only, Starting on Mon05/29/20 at 1515, Anesthesia Intra-op Given 05/29/2020 3:15 PM EDT 20 0 mg documented in this encounter Additional Health Concerns Assessment Noted Time PHQ-9 Depression Total Score: 0 12/06/19 18 3:00 PM EDT documented as of this encounter Care Teams Human Resources Benefits Coordinator Relationship Specialty Start Date End Date Edgar Fournier MD [address] [place] [address] [place] [address] PCP - General 08/18/17 06/23/21 Maile Valles, JANA Txp Post Coordinator Transplant Hepatology 11/07/17 Jack Ordoñez MD [address] [place] [phone] Consulting Physician Transplant Hepatology 01/05/18 Estephania Sharif, DarrianD Pharmacist Pharmacist 11/11/19 documented as of this encounter
--- OUTSIDE RECORDS SUMMARY | 2024-07-12 12:41 | XMS_ITS | Encounter Summary ---
Author Organization [facility] Address [facility] [place] [address] Care Team Providers Care Train Announcer Name Role Phone Edgar Fournier MD Primary Care Provider [phone] Maile Valles RN Unavailable Unavail able Jack Ordoñez MD Unavailable [phone] Estephania Sharif PharmD Unavailable Christine vailable [...] release of HIV test results or diagnoses. [id number] Reason for Visit * Auth/Cert Specialty Diagnoses / Procedures Referred By Contac t Referred To Contact Transplant Diagnoses POST-OP INFECTION [address] [place] [address] Phone: tel: Referral ID Status Reason Start Date Expiration Date Visits Re quested Visits Authorized [id number] 1 1 Encounter Details Date Type Department Care Team (Late st Contact Info) Description 05/28/2020 12:24 PM EDT - 06/08/2020 6:22 PM EDT Hospital Encounter [address] [place] [address] Unknown, Attending Provider Abbie Cifuentes MD [address] [facility]- 2nd [place] [address] Aby Cavazos MD [address] [facility] [address] [place] [address] Anemia, unspecified type; ESRD (end stage renal disease) ([facility]); Gastroesophageal reflux disease, unspecified whether esophagitis present; Immunosuppression ([facility]); Liver transplant recipient ([facility]); Subacute osteomyelitis, other site ([facility]); Hematemesis, presence of nausea not specified; Osteomyelitis, unspecified site, unspecified type ([facility]); Liver transplanted ([facility]); Coffee ground emesis; History of liver transplant ([facility]); Vertebral osteomyelitis ([facility]) 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 Social History Tobacco Use Types Packs/Day [...] Sign Reading Time Taken Comments Blood Pressure 178/73 06/08/2020 4:55 PM EDT Pulse 115 06/08/2020 4:55 PM EDT Temperature 36.3 ??C (97.4 ??F) 06/08/2020 4:55 PM ED T Respiratory Rate 18 06/08/2020 4:55 PM EDT Oxygen Saturation 91% 06/08/2020 4:55 PM EDT Inhaled Oxygen Concentration 91% 06/08/2020 4 :55 PM EDT Weight 114.3 kg (251 lb 15.8 oz) 06/07/2020 4:37 AM EDT Height 170.2 cm (5' 7 ) 06/02/2020 8:50 AM EDT Body Mass Index 39.47 06/02/2020 8:50 AM EDT documented in this encounter Discharge Summaries * Jay Day MD - 06/08/2020 2:22 PM EDT [facility] Department of Internal Medicine Inpatient Discharge Summary Patient: Leoncio Rollins Jr. CSN: [id number] Date of Admission: 05/28/2020 Date of Discharge: 06/08/2020 Attending Physician: Aby Cavazos MD Diagnoses Present on Admission Past Medical [...] ??? Osteomyelitis (CMS Dx) [M86.9] 05/28/2020 ??? Anemia, unspecified [D64.9] 11/12/2019 ??? ESRD (end stage renal disease) (CMS Dx) [N18.6] 09/13/2018 ??? Immunosuppression (CMS Dx) [D84.9] 10/31/2017 ??? Liver transplanted (CMS Dx) [Z94.4] Resolved Hospital Problems Diagnosis Date Noted Date Resolved ??? Esophagitis [K20.90] 11/12/2019 06/08/2020 Operations/Procedures Performed (include dates) Surgeries: Surgical/Procedural Cases on this Admission Case IDs Date Procedure Surgeon Location Status [id number] 05/29/20 EGD WITH BIOPSY Rashid Winchester MD ENDOSCOPY Comp Lines/Drains/Airways: Patient Lines/Drains/Airways Status Active Line / PIV Line Name: Placement date: Placement time: Site: Days: HD Catheter Dual Lumen (Vas Cath) Tunneled Right Internal Jugular 07/23/19 1018 Internal Jugular 321 Peripheral IV 06/06/20 Right Upper arm 06/06/20 1341 Upper arm 2 NHSN Device Days (05/09/2020 to 06/07/2020) Central line: 11 Urinary catheter: 0 Notable Imaging Studies: Results for orders placed during the hospital encounter of 05/28/20 X-ray Chest PA or AP Narrative EXAM: XR CHEST PA OR AP INDICATION: Other - Must Specify in Comments, possible aspiration, TECHNIQUE: 1 view of the chest. DATE: 05/29/2020 4:14 PM EDT COMPARISON: May 28, 2020 FINDINGS: Medical Devices: None. Heart and Mediastinum: Cardiomediastinal silhouette is within normal limits. Lungs and Pleura: Lungs are clear. No pleural abnormalities evident. Bones and soft tissues: No acute abnormalities. Results for orders placed during the hospital encounter of 05/28/20 VASC Venous Duplex Lower Extremity Bilateral Narrative Bilateral: B-mode imaging demonstrates normal compressibility of all venous segments examined and no evidence for the presence of thrombus. Doppler signals document spontaneous, phasic patterns with appropriate response to augmentation maneuvers and absence of venous reflux. Conclusions: Normal BLE venous duplex exam. Procedure: Lower extremity venous imaging was performed using real time B-mode imaging in transverse plane with and without compression. Visualization routinely includes the common femoral vein (CFV)with the saphenofemoral junction, femoral vein (FV), popliteal vein, calf veins and the great saphenous vein in the thigh. Color and spectral Doppler were used to document flow characteristics from the CFV, FV and popliteal vein to evaluate for the presence or absence of spontaneous flow and respiratory phasic variation. Augmentation maneuvers were performed as needed to document venous flow response and valve competence. On unilateral studies, the contralateral CFV is routinely examined. Results for orders placed or performed during the hospital encounter of 05/28/20 ECG 12 lead (MUSE) Narrative Ventricular Rate: 131 BPM Atrial Rate: 131 BPM P-R Interval: 198 ms QRS Duration: 102 ms QT: 256 ms QTc: 378 ms P Boyds: 41 degrees R Boyds: 51 degrees T Boyds: 167 degrees Diagnosis Line: SINUS TACHYCARDIA ^ POSSIBLE LEFT ATRIAL ENLARGEMENT ^ ST SEGMENT CHANGE AND ANTEROLATERAL T WAVE INVERSION ^ POSSIBLE INFERIOR AL ^ COMPARED TO THE ECG OF 28-MAY-2020 13:29, ^ T WAVEINVERSION NOW EVIDENT IN ANTEROLATERAL LEADS ^ Confirmed by Marcelino JERRY MD ([id number]) on 06/01/2020 9:30:56 AM Results for orders placed during the hospital encounter of 05/28/20 Echo 2D Complete (TTE) Narrative * [facility]* [address] [place] [address] Transthoracic Echocardiography Patient: Leoncio Rollins MR #: [id number] Account: Study Date: 06/01/2020 Gender: M Age: 45 : 1975 Room: [facility] Thania Hamilton MD COMMUNITY CASE MANAGER Albertina Roth, [facility] ORDERING María Galvez REFERRING María Galvez ATTENDING Aby Cavazos ADMITTING Aby Cavazos Procedure:ECHO 2D COMPLETE (TTE) Order: Indications: Endocarditis (I38). Risk factors: Hypertension. Diabetes mellitus. JC. Study data: Height: 67in. 170.2cm. Weight: 277.4lb. 126.1kg. Comparison was made to the study of 07/22/2019. Study status: Routine. Procedure: Transthoracic echocardiography. Image quality was suboptimal. The study was technically limited due to poor patient compliance. Scanning was performed from the parasternal, apical, and subcostal acoustic windows. Transthoracic echocardiography. M-mode, complete 2D, complete spectral Doppler, and color Doppler. Birthdate: Patient birthdate: 1975. Age: Patient is 45yr old. Sex: gender: male. Body mass index: BMI: 43.5kg/m^2. Body surface area: BSA: 2.33m^2. Blood pressure: 166/94 Patient status: Inpatient. Study date: Study date: 06/01/2020. Study time: 02:22 PM. Location: Echo laboratory. Study Conclusions - [...] estimated. - Inferior vena cava: Poorly visualized. Cardiac Anatomy Left ventricle: - The cavity size is normal. Wall thickness was increased in a pattern of mild LVH. Systolic function was normal. The estimated ejection fraction was in the range of 55% to 60%. Wall motion was normal; there were no regional wall motion abnormalities. - Wall motion score: 1.00. - The study is not technically sufficient to allow evaluation of LV diastolic function due to tachycardia. Aorta: Aortic root: - The aortic root is normal in size. Aortic valve: - Poorly visualized. Mild thickening. Mild calcification. Doppler: - Transvalvular velocity is within the normal range. There is no stenosis. No regurgitation. Mitral valve: - Structurally normal valve. Mobility was not restricted. Doppler: - Transvalvular velocity is within the normal range. There is no evidence for stenosis. No regurgitation. Left atrium: - The atrium is mildly dilated. Pulmonary artery: - Systolic pressure could not be accurately estimated. Systemic veins: Inferior vena cava: Poorly visualized. Right ventricle: - The cavity appears dilated in some views. Systolic function was normal. TAPSE: 2.1cm. Ventricular septum: - Abnormal septal motion. Septal motion is dyssynergic. Pulmonic valve: - Poorly visualized. Doppler: - Transvalvular velocity is within the normal range. There is no evidence for stenosis. No regurgitation. Tricuspid valve: - Poorly visualized. Doppler: - Transvalvular velocity is within the normal range. No regurgitation. Right atrium: - The atrium is dilated. Pericardium: - There is no pericardial effusion. Systemic veins: Inferior vena cava: - Poorly visualized. Measurements Left ventricle Value 07/22/2019 Ref ESD major ax, A4C 7.0 cm 7.4 ESD/bsa major ax, A4C 3.0 cm/m^2 2.8 GINA minor ax, A4C 7.0 cm 7.4 GINA/bsa minor ax, A4C 3.0 cm/m^2 2.8 RACHEL, A4C 51.5 cm^2 39.1 MINERVA, A4C 25.4 cm^2 22.5 FAC, A4C 51 % 42 GINA major ax, A2C 10.1 cm 8.3 GINA/bsa major ax, A2C 4.3 cm/m^2 3.2 EDV, 1-p A4C (H) 215 ml 148 69 - 185 ESV, 1-p A4C (N) 77 ml 57 22 - 78 EF, 1-p A4C (N) 64 % 61 46 - 74 SV, 1-p A4C 137 ml 151 EDV/bsa, 1-p A4C (N) 92 ml/m^2 57 37 - 93 ESV/bsa, 1-p A4C (N) 33 ml/m^2 22 12 - 40 SV/bsa, 1-p A4C 59 ml/m^2 58 SV/bsa, 2-p 58.8 ml/m^2 36.4 E', lat russell, TDI (N) 17.9 cm/sec 9.1 >=10.0 E/e', lat russell, TDI 8 13 S', lat russell, TDI 10.9 cm/sec 7.1 E', med russell, TDI (N) 12.0 cm/sec 7.0 >=7.0 E/e', med russell, TDI 12 17 S', med russell, TDI 10.6 cm/sec 6.6 E', avg, TDI 15.0 cm/sec 8.1 E/e', avg, TDI (N) 10 15 <=14 LVOT Value 07/22/2019 Ref Peak cesilia, S 1.38 m/sec 1.12 Peak grad, S 8 mm Hg 5 Right ventricle Value 07/22/2019 Ref GINA, LAX 5.8 cm 4.7 TAPSE, MM (N) 2.1 cm 3.1 1.7 - 3.1 S' lateral (N) 13.2 cm/sec 14.5 6.0 - 13.4 RVOT Value 07/22/2019 Ref Peak v, S 1.18 m/sec 0.58 Peak grad, S 6 mm Hg Left atrium Value 07/22/2019 Ref AP dim, ES (H) 4.4 cm 4.6 3.0 - 4.0 AP dim index (N) 1.9 cm/m^2 1.8 1.5 - 2.3 Area ES, A4C (H) 23 cm^2 26 <=20 Area ES, A2C 25 cm^2 25 SI dim, A2C 5.4 cm 5.6 Vol, ES, 1-p A4C (H) 68 ml 84 18 - 58 Vol/bsa, ES, 1-p A4C (N) 29 ml/m^2 32 12 - 37 Vol, ES, 1-p A2C (H) 87 ml 89 18 - 58 Vol/bsa, ES, 1-p A2C (N) 37 ml/m^2 34 11 - 43 Vol, ES, 2-p 80 ml Vol/bsa, ES, 2-p (N) 34 ml/m^2 16 - 34 Right atrium Value 07/22/2019 Ref Area, ES, A4C (H) 22 cm^2 21 10 - 18 Aortic valve Value 07/22/2019 Ref Peak v, S 2.2 m/sec 1.8 Mean v, S 1.47 m/sec Mean grad, S 11 mm Hg Peak grad, S 20 mm Hg 13 LVOT/AV, Vpeak ratio 0.62 0.63 Mitral valve Value 07/22/2019 Ref Peak E 1.49 m/sec 1.18 Decel slope 731 cm/s^2 5.03 Decel time 204 ms 235 PHT 60 ms 69 Peak grad, D 9 mm Hg 6 MVA, PHT 3.7 cm^2 3.2 MVA/bsa, PHT 1.58 cm^2/m^2 1.22 Pulmonic valve Value 07/22/2019 Ref Peak v, S 1.6 m/sec 1.1 Aortic root Value 07/22/2019 Ref Root diam (N) 2.9 cm 2.8 <4.4 Legend: (L) and (H) dewey values outside specified reference range. (N) moran values inside specified reference range. Reviewed and confirmed by Thania Hamilton MD [id number]:56 Other Procedures: 1. EGD 2. AVF declotting 3. Epidural abscess sampling Consulting Services (include reason) 1. Neurosurgery: epidural abscess 2. Renal: ESRD 3. Hepatology: hx of liver transplant, Hematemesis 4. Interventional Radiology : AVF declotting, Epidural abscess sampling 5. Infectious diseases : Osteomyelitis, discitis , Epidural abscess, Esophageal candidosis Allergies Codeine Sulfate Codeine Discharge Medications Current Facility-Administered Medications Medication Dose Route Frequency Provider Last Rate Last Dose ??? acetaminophen (TYLENOL) tablet 975 mg 975 mg Oral Q6H María Galvez MD 975 mg at 06/08/20 0820 ??? ALPRAZolam (XANAX) tablet 0.5 mg 0.5 mg Oral Daily PRN María Galvez MD 0.5 mg at 06/08/20 1242 ??? carBAMazepine (TEGRETOL) tablet 200 mg 200 mg Oral Nightly (2099) María Galvez MD 200 mg at 06/07/202015 ??? cycloSPORINE modified (NEORAL) capsule 75 mg 75 mg Oral BID Jay Day MD 75 mg at 06/08/20 0820 ??? dextrose 50 % in water (D50W) iv Syrg 25 mL 25 mL Intravenous Q15 Min PRN María Galvez MD Or ??? dextrose 50 % in water (D50W) iv Syrg 50 mL 50 mL Intravenous Q15 Min PRN María Galvez MD ??? entecavir (BARACLUDE) tablet 0.5 mg 0.5 mg Oral Q7 Days María Galvez MD 0.5 mg at 06/02/20 1308 ??? epoetin giancarlo-epbx (RETACRIT) 3,000 unit/mL solution 6,000 Units 6,000 Units Subcutaneous Once per day on Mon Jay Day MD 6,000 Units at 06/08/20 1008 ??? fluconazole (DIFLUCAN) tablet 200 mg 200 mg Oral Daily 0900 María Galvez MD 200 mg at 06/08/20 0820 ??? gabapentin (NEURONTIN) capsule 200 mg 200 mg Oral Nightly (2099) María Galvez MD 200 mg at 06/07/20 2018 ??? glucose chewable tablet 12 g 12 g Oral Q15 Min PRN María Galvez MD ??? heparin (porcine) injection 5,000 Units 5,000 Units Subcutaneous 3 times per day María Galvez MD 5,000 Units at 06/04/20 1322 ??? hydrALAZINE (APRESOLINE) tablet 100 mg 100 mg Oral 3 times per day María Galvez MD 100 mg at1 0417 ??? HYDROmorphone (DILAUDID) injection Syrg 0.5 mg 0.5 mg Intravenous Q6H PRN Jay Day MD 0.5 mg at 06/08/20 0832 ??? insulin lispro (humaLOG) injection 0-5 Units 0-5 Units Subcutaneous TID AC María Galvez MD 1Units at 06/08/20 1014 ??? lidocaine (LIDODERM) 5 % 1 patch 1 patch Transdermal Q24H María Galvez MD 1 patch at 06/08/20 1134 ??? melatonin Tab 3 mg 3 mg Oral Nightly (2099) María Galvez MD 3 mg at 06/07/202023 ??? methocarbamoL (ROBAXIN) tablet 500 mg 500 mg Oral QID María Galvez MD 500 mg at 06/08/20 0820 ??? metoprolol tartrate (LOPRESSOR) tablet 25 mg 25 mg Oral BID María Galvez MD 25 mg at 06/08/20 0821 ??? NIFEdipine (PROCARDIA-XL) 24 hr tablet 90 mg 90 mg Oral BID María Galvez MD 90 mg at 06/08/20 0820 ??? ondansetron (ZOFRAN) injection 4 mg 4 mg Intravenous Q8H PRN María Galvez MD 4 mg at 06/08/20 0832 ??? pantoprazole (PROTONIX) EC tablet 40 mg 40 mg Oral DAILY 0600 María Galvez MD 40 mg at 06/08/208 ??? polyethylene glycol (MIRALAX) packet 17 g 17 g Oral Daily PRN Jay Day MD ??? proMETHazine (PHENERGAN) tablet 12.5 mg 12.5 mg Oral Q6H PRN María Galvez MD 12.5 mg at 06/06/202044 ??? quetiapine (SEROQUEL) half tablet 12.5 mg 12.5 mg Oral Nightly (2099) María Galvez MD 12.5 mg at 06/07/202015 ??? senna-docusate (SENNA-S) 8.6-50 mg per tablet 2 tablet 2 tablet Oral Nightly PRN Jay Day MD ??? terazosin (HYTRIN) capsule 10 mg 10 mg Oral Nightly (2099) María Galvez MD 10 mg at 06/07/202016 ??? vancomycin intermittent/pulse dosing PLACEHOLDER ORDER Intravenous UD PRN Cristóbal Faith MD Reason for Admission Leoncio Rollins Jr. is a 45 y.o. male with a history of ESRD on HD at home ([facility]), SAL cirrhosis s/p liver transplant 2018, pulmonary HTN, JC, DM2, HTN, obesity presenting to the hospital as direct admission with complaint of subacute low back pain and weakness following spinal surgery. Hospital Course Active Hospital Problems Diagnosis Date Noted ??? Osteomyelitis (CMS Dx) [M86.9] 05/28/2020 ??? Anemia, unspecified [D64.9] 11/12/2019 ??? ESRD (end stage renal disease) (CMS Dx) [N18.6] 09/13/2018 ??? Immunosuppression (CMS Dx) [D84.9] 10/31/2017 ??? Liver transplanted (CMS Dx) [Z94.4] Resolved Hospital Problems Diagnosis Date Noted Date Resolved ??? Esophagitis [K20.90] 11/12/2019 06/08/2020 #Osteomyelitis #Epidural Abscess Patient with recent spinal surgery [...] which showed gram stain with GPCs in pairs but no growth. Transplant ID decided that the osteomyelitis is likely secondary to previously identified MRSE without new organism and recommended stopping the cefepime (last dose 06/04) and finishing 8 weeksIV vancomycin 1000 mg with Diaylsis (05/28/2020- 07/22/2020), wiht weekly monitoring of CBC, diff, renal, ESR, CRP. Follow-up blood cultures at OSH with NG after 5 days, and blood cultures at [facility] also with NG after5 days. Patient [...] mg were added and improved patient pain #Upper GI Bleed #Anemia of Chronic disease [...] evidence of intestinal metaplasia, dysplasia, or malignancy) #Esophageal candidiasis Biopsy of mass-like lesion in the distal esophagus with GMS stain demonstrated fungal yeasts, morphologically suggesting Luz. Transplant ID recommended starting Fluconazole 200 mg for two weeks (06/07/2020- 06/20/2020) ?? #ESRD on iHD Patient dialyzes on , , , , at home??with AVF in E. . Not eligible for transplant due toBMI >40. Nephrology consult for dialysis continuatio. On 06/01 Patient went for unsuccessful dialysis with reported clots coming from AVF, IR declotted the AVF 06/02 w/plan to dialyze afterwards but could not tolerate full run of iHD d/t fistula pressure issues. US of the fistula 06/03 showed patent fistula. Afterwards patient put on -- schedule. Patient would only tolerate 3-3.5 h / 4h dialysis session due to leg pain. Per renal patient to continue on MWF dialysis schedule in the [facility]. Patient was receiving EPO 6000U with dialysis sessions #SAL Cirrhosis s/p liver transplant 2017 No [...] undetectable levels, and then to 75 mg BID on 06/07 also due to drug undetectable levels. - lifelong entecavir 0.5 mg weekly (Taken on Tuesdays) was continued due to high risk donor (HBV ALEXANDRA +, HCV Ab+, ALEXANDRA negative) Continued to hold Cellcept at discharge. As patient was started a Fluconazole, he would needs cyclosporine level checks at [facility] as he Fluconazole increase cyclosporine level. MELD-Na [...] at 06/08/2020 7:20 AM Age: 45 years #Type 2 Diabetes Mellitus Home regimen humalin 48u qAM, 24u nightly. Last HgA1c 6.9% 01/27/2020. He was put on low dose sliding scale insulin. Blood glucose ranges 113-170. patient rarely needed any insulin correction throughout his stay Gabapentin 200 mg and tegretol 200 mg conitnued for neuropathy ?? #GERD - Continued home famotidine at [...] to JC/OHS. Has an appointment with Dr. Brenden ag 07/01/2020. No acute issues during this hospitalizing ?? #JC Patient refused to wear BiPAP at night, so he needed O2 through NC some nights. Condition on Discharge 1. Functional Status: moderately impaired Describe limitations, if any: Unable to ambulate due to weakness of the legs in the setting if pain 2. Mental Status: Alert/Oriented 3. Diet / Tube Feeding / TPN: Diet Orders Diet consistent carb 60-75g/meal; renal starting at 06/03 1003 As listed above 4. Respiratory / Lines & Tubes / Wounds: LABS: weekly CBC, diff, renal, ESR, CRP. 5. Discharge Physical Exam: BP 146/90 Pulse 96 Temp 97.9 ??F (36.6 ??C) (Oral) Resp 18 Ht 5' 7 (1.702 m) Wt (!) 251 lb 15.8 oz (114.3 kg) SpO2 95% BMI 39.47 kg/m?? General: Age appropriate??male, in no acute distress Heart:??Regular rate and rhythm, no murmurs, rubs, gallops Lungs: Clear to auscultation bilaterally, no wheezes or rales, normal work of breathing Abdomen:??Soft, obese,??non-tender, non-distended, scar present from prior liver transplant Extremities:??No clubbing, no edema, AVF present on L UE for dialysis, localized swelling felt behind the left knee. Skin:??No rashes, no jaundice Neuro:??AOx4, moves all 4 extremities, Strength decreased/limited due to pain at L hip, normal sensation of lower extremities,??follows commands Psych:??Alert and appropriate, normal affect Core Measure Documentation (As Applicable) Most Recent Wt: Weight: (!) 251 lb 15.8 oz (114.3 kg) Disposition LTAC Follow-Up Appointments Future Appointments Date Time Provider Department Center 07/01/2020 2:30 PM Ravi Biswas MD [facility] Patient Instructions / Follow-Up Items for Receiving Physician 1. Complete 8 weeks of IV Vancomycin 1000 mg with diaylsis (05/28/2020-07/22/2020) 2. Complete 2 weeks of PO fluconazole 200 mg (06/07/2020-06/20/2020) Signed: JAY DAY MD 06/08/2020, 2:22 PM Cosigned by Aby Cavazos MD at 06/08/2020 2:25 PM EDT Associated attestation - Aby Cavazos MD - 06/08/2020 2:25 PM EDT INTERNAL MEDICINE ATTENDING PHYSICIAN ATTESTATION Leoncio Rollins Jr. was seen today on rounds with the team. I personally interviewed and examined the patient. I reviewed the documentation by the resident or medical student and agree as documented, except for additional comments or corrections listed below. No additional comments or corrections. Aby Cavazos MD Clinical Instructor Department of Internal Medicine 06/08/2020 2:25 PM * Emelina Churchill RN - 06/08/2020 11:30 AM EDT [facility] Cash Controller/Television Host Discharge Summary Patient name: Leoncio Rollins Jr. Patient : 1975 Age: 45 y.o. Gender: male Patient emergency contact: Extended Emergency Contact Information Primary Emergency Contact: Kym Rollins Address: [address] [place] [address] Mobile Relation: Spouse Secondary Emergency Contact: Kimberly Rollins [facility] Relation: Mother Attending provider: Aby Cavazos MD Primary care physician: Edgar Fournier MD The MD has indicated that the patient is ready for discharge. Leoncio Rollins Jr. was referred and accepted at [facility] Facility Name: [facility] at [facility] Provider Contact Number: Report: [phone] Fax: [phone]. The patient will be transported by [facility] [phone] at 6PM Transfer Mode/Level of Care: Basic Life Support Stretcher (BLS) DC Summary and VIMAL have been faxed to facility. The plan has been reviewed: Patient/Family Informed of Discharge Plan: Yes Plan Reviewed With Patient, Family, or Significant Other: Yes Patient and or family are aware and in agreement with the discharge plan: Yes Family Member Name and Relationship Notified at Discharge: Kym Rollins Family Contact Number: in room Plan reviewed with and other members of the health care team: Yes Care Plan Completed: Yes No further CM/SW needs. This plan has been reviewed with the multi-disciplinary team. Treatment Preferences Treatment Preferences: Provider Preference Post-Discharge Goals Patient's Post-Discharge goals: to return home to prior level of functioning Post Acute Care Provider Information: [facility] Facility Name: [facility] Provider Contact Number: Report: [phone] Fax: [phone] Community Services at Discharge Community Services at Home post discharge: Not Applicable Pending Labs & Dialysis Information: Pending Lab Results None Dialysis Order (48h ago, onward) Ordered Start 06/01/20 1226 IP Hemodialysis orders/machine parameters - Q MON - - MON (Hemodialysis orders (single select)) Every Mon,Mon,Mon Comments: In an event of an interruption, due to the time required to safely flush the lines/strip and change the dialyzer/tubing to restart the therapy, modification of treatment duration within 15 minutes or less of the prescribed time due to technical or patient related reasons are deemed acceptable and is implied in this order set. Ordering Provider: Kimber Alcantar MD Question Answer Comment Diagnosis End stage renal disease Duration of treatment (hours) 4 Dialyzer F180NR BFR 350 mL/min DFR 700 mL/min Dialysate Temperature (C) 36 K+ Sliding Scale Potassium Ca++ 2.5 mEq Bicarb 35 mEq Na+ 140 mEq Dry Weight/Fluid Removal Goal (Liters) UF to dry weight Hepatitis B Surfaces Antigen (HBsAg) Resulted in Last 30 days? See Below Yes 06/01/20 1227 05/31/20 1255 IP Hemodialysis orders/machine parameters - ONCE TODAY (Hemodialysis orders (single select)) Every Mon-Wed-Fri Comments: In an event of an interruption, due to the time required to safely flush the lines/strip and change the dialyzer/tubing to restart the therapy, modification of treatment duration within 15 minutes or less of the prescribed time due to technical or patient related reasons are deemed acceptable and is implied in this order set. Ordering Provider: Aubrey Andrew MD Question Answer Comment Diagnosis End stage renal disease Duration of treatment (hours) 4 Dialyzer Medisystem BFR 350 mL/min DFR 700 mL/min Dialysate Temperature (C) 36 K+ Sliding Scale Potassium Ca++ 2.5 mEq Bicarb 35 mEq Na+ Other (please specify) 138 Dry Weight/Fluid Removal Goal (Liters) UF to dry weight as tolerated for SBP > 100 Hepatitis B Surfaces Antigen (HBsAg) Resulted in Last 30 days? See Below Yes 06/01/20 0900 [facility] HD PreTreatment (last 720 hours) [facility] HD Pre-Treatment Row Name 06/04/20 1425 06/02/20 0930 05/29/20 1900 Technical Checks Location Acute Room Acute Room -- Room / POD 2 3 -- Prescribed Treatment Time (minutes) 240 240 -- Machine Number [id number] Chlorine /Chloramine Negative Yes Yes -- Alarms Verified Yes Yes -- NVL Enabled Yes Yes -- Independent Dialysate check done Yes Yes -- Dialysate pH 7.2 7.2 -- Dialysate Temperature 96.8 ??F (36 ??C) 96.8 ??F (36 ??C) -- Machine Conductivity 13.8 13.9 -- Meter Conductivity 14 13.8 -- Time-Out Correct Patient? -- Yes Yes What Procedure? -- HD IHD Correct Procedure? -- Yes Yes Consents Verified? Yes Yes Yes Lab Results Available? Yes Yes Yes Hep B Core Total Ab negative negative negative HB Core Total Ab last drawn 05/28/20 05/28/20 05/28/20 Hep B Surface Ab positive positive positive HBsAB last drawn 05/28/20 05/28/20 05/28/20 Hepatitis B Surface Ag positive positive positive HBsAG last drawn 05/28/20 05/28/20 05/28/20 Name of Clinician entering information JANA Yin rn Are you the first or second reviewer? First Reviewer First Reviewer First Reviewer Row Name 05/29/20 1600 Technical Checks Location Acute Room Room / POD 1 Prescribed Treatment Time (minutes) 240 Machine Number 234 Chlorine /Chloramine Negative Yes Alarms Verified Yes NVL Enabled Yes Independent Dialysate check done Yes Dialysate pH 7 Dialysate Temperature 96.8 ??F (36 ??C) Machine Conductivity 14 Meter Conductivity 13.8 Assessment Data (last 720 hours) HD Pre-Treatment No documentation. Assessment Data (last 720 hours) HD Treatment Row Name 06/04/20 1900 06/04/20 1845 06/04/20 1830 Hemodialysis Intra - treatment BP -- 110/61 (!) 137/119 Pulse -- 111 88 Blood Flow Rate (mL/min) 0 mL/min 350 mL/min 350 mL/min Dialysate Temperature 96.4 ??F (35.8 ??C) 96.8 ??F (36 ??C) 96.3 ??F (35.7 ??C) Dialysate Flow Rate (mL/min) 700 ml/min 700 ml/min 700 ml/min Arterial Pressure (mmHg) 38 mmHg -145 mmHg -148 mmHg Venous Pressure (mmHg) 38 mmHg 130 mmHg 132 mmHg Transmembrane Pressure (mmHg) 25 mmHg 40 mmHg 34 mmHg Conductivity (mS/cm) 13.9 mS/cm 14 mS/cm 13.9 mS/cm Ultrafiltration Rate (mL/hr) 0 mL/hr 0 mL/hr 0 mL/hr Ultrafiltration Total (ml) 1075 mL 1075 mL 1075 mL Total Liters Processed (L) -- 65.3 Liters 60.38 Liters Access and face visible Yes Yes Yes Arteriovenous Lines Secure Yes Yes Yes Air detector engaged Yes Yes Yes Hemosafe Clip On Yes Yes Yes NVL Alarm engaged Yes Yes Yes Symptoms -- other C/O OF restless legs/with pain. -- Treatment Comments VSS;treatment terminated;blood rinsed back ok to terminated tx per -- waitingon return call -- PAGE DR KATHARINE WILSON 126/66 Row Name 06/04/20 1815 06/04/20 1800 06/04/20 1745 Hemodialysis Intra - treatment BP -- 105/55 (!) 83/59 Pulse -- -- 112 Blood Flow Rate (mL/min) -- 350 mL/min 350 mL/min Dialysate Temperature -- 96.8 ??F (36 ??C) 96.6 ??F (35.9 ??C) Dialysate Flow Rate (mL/min) -- 700 ml/min 700 ml/min Arterial Pressure (mmHg) -- -149 mmHg -148 mmHg Venous Pressure (mmHg) -- 128 mmHg 130 mmHg Transmembrane Pressure (mmHg) -- 34 mmHg 33 mmHg Conductivity (mS/cm) -- 13.9 mS/cm 15.4 mS/cm Ultrafiltration Rate (mL/hr) -- 0 mL/hr 0 mL/hr Ultrafiltration Total (ml) -- 1075 mL 1075 mL Total Liters Processed (L) -- 51.14 Liters 46.27 Liters Access and face visible Yes Yes Yes Arteriovenous Lines Secure Yes Yes Yes Air detector engaged Yes Yes Yes Hemosafe Clip On Yes Yes Yes NVL Alarm engaged Yes Yes Yes Symptoms -- -- -- n/a Treatment Comments VSS c/o leg pain, requesting off machine notify MD LAZAR;denies needs at this [id number] -- 105/55 hr 109 Row Name 06/04/20 1730 06/04/20 1715 06/04/20 1700 Hemodialysis Intra - treatment BP 96/72 (!) 225/207 106/58 Pulse 108 78 110 Blood Flow Rate (mL/min) 350 mL/min 350 mL/min 350 mL/min Dialysate Temperature 96.8 ??F (36 ??C) 96.8 ??F (36 ??C) 96.8 ??F (36 ??C) Dialysate Flow Rate (mL/min) 700 ml/min 700 ml/min 700 ml/min Arterial Pressure (mmHg) -152 mmHg -150 mmHg -151 mmHg Venous Pressure (mmHg) 129 mmHg 128 mmHg 129 mmHg Transmembrane Pressure (mmHg) 35 mmHg 45 mmHg 32 mmHg Conductivity (mS/cm) 13.9 mS/cm 13.9 mS/cm 13.4 mS/cm Ultrafiltration Rate (mL/hr) 0 mL/hr 220 mL/hr 220 mL/hr Ultrafiltration Total (ml) 1075 mL 1039 mL 985 mL Total Liters Processed (L) 41.39 Liters 36.44 Liters 31.51 Liters Access and face visible Yes Yes Yes Arteriovenous Lines Secure Yes Yes Yes Air detector engaged Yes Yes Yes Hemosafe Clip On Yes Yes Yes NVL Alarm engaged Yes Yes Yes Symptoms -- -- n/a -- N/A Interventions UF goal decreased;placed in minimum UF -- -- Treatment Comments -- reposition cuff 98/53 VSS;denies needs at this time denies needs at this timereposition [id number] Row Name 06/04/20 1645 06/04/20 1630 06/04/20 1615 Hemodialysis Intra - treatment BP (!) 121/105 124/70 123/74 Pulse -- 114 105 Resp -- -- 18 Blood Flow Rate (mL/min) 350 mL/min 350 mL/min 350 mL/min Dialysate Temperature 96.8 ??F (36 ??C) 96.8 ??F (36 ??C) 96.1 ??F (35.6 ??C) Dialysate Flow Rate (mL/min) 700 ml/min 700 ml/min 700 ml/min Arterial Pressure (mmHg) -150 mmHg -149 mmHg -149 mmHg Venous Pressure (mmHg) 124 mmHg 127 mmHg 125 mmHg Transmembrane Pressure (mmHg) 53 mmHg 53 mmHg 54 mmHg Conductivity (mS/cm) 13.8 mS/cm 13.9 mS/cm 13.9 mS/cm Ultrafiltration Rate (mL/hr) 630 mL/hr 630 mL/hr 630 mL/hr Ultrafiltration Total (ml) 891 mL 735 mL 579 mL Total Liters Processed (L) 26.69 Liters 21.78 Liters 16.81 Liters Access and face visible Yes Yes Yes Arteriovenous Lines Secure Yes Yes Yes Air detector engaged Yes Yes Yes Hemosafe Clip On Yes Yes Yes NVL Alarm engaged Yes Yes Yes Symptoms -- n/a -- n/a other c/o back pain, left leg pain. see MAR Interventions -- -- medication given see MAR, other Treatment Comments other reposition cuff 108/61 VSS eating VSS REPOSITION CUFF 123/74 Row Name 06/04/20 1600 06/04/20 1545 06/04/20 1530 Hemodialysis Intra - treatment BP 102/77 120/84 129/76 Pulse 105 106 104 Resp -- -- 18 Blood Flow Rate (mL/min) 350 mL/min 350 mL/min 350 mL/min Dialysate Temperature 96.8 ??F (36 ??C) 96.6 ??F (35.9 ??C) 96.8 ??F (36 ??C) Dialysate Flow Rate (mL/min) 700 ml/min 700 ml/min 700 ml/min Arterial Pressure (mmHg) -146 mmHg -147 mmHg -143 mmHg Venous Pressure (mmHg) 125 mmHg 124 mmHg 126 mmHg Transmembrane Pressure (mmHg) 52 mmHg 51 mmHg 51 mmHg Conductivity (mS/cm) 13.9 mS/cm 13.9 mS/cm 13.9 mS/cm Ultrafiltration Rate (mL/hr) 630 mL/hr 630 mL/hr 630 mL/hr Ultrafiltration Total (ml) 425 mL 269 mL 127 mL Total Liters Processed (L) 13.15 Liters 8.2 Liters 3.74 Liters Access and face visible Yes Yes Yes Arteriovenous Lines Secure Yes Yes Yes Air detector engaged Yes Yes Yes Hemosafe Clip On Yes Yes Yes NVL Alarm engaged Yes Yes Yes Symptoms -- -- n/a -- n/a Treatment Complications -- -- N/A -- n/a Treatment Comments VSS VSS;denies needs at this time VSS;denies needs at this time Row Name 06/04/20 1445 06/04/20 1415 06/02/20 1130 Hemodialysis Intra - treatment BP -- 148/85 (!) 161/99 Pulse -- 106 122 Resp -- 18 -- Blood Flow Rate (mL/min) -- 200 mL/min 0 mL/min Dialysate Temperature -- 96.3 ??F (35.7 ??C) 96.8 ??F (36 ??C) Dialysate Flow Rate (mL/min) -- 300 ml/min 700 ml/min Arterial Pressure (mmHg) -- 44 mmHg 1 mmHg Venous Pressure (mmHg) -- 44 mmHg 87 mmHg Transmembrane Pressure (mmHg) -- 12 mmHg 18 mmHg Conductivity (mS/cm) -- 13.9 mS/cm 13.9 mS/cm Ultrafiltration Rate (mL/hr) -- 630 mL/hr 0 mL/hr Ultrafiltration Total (ml) -- 0 mL 345 mL Total Liters Processed (L) -- 0 Liters 20.66 Liters Access and face visible -- Yes -- Arteriovenous Lines Secure -- Yes -- Air detector engaged -- Yes -- Hemosafe Clip On -- Yes -- NVL Alarm engaged -- Yes -- Symptoms -- -- n/a -- Treatment Complications unable to use arterial access;other Blood clot removed from Arterial x 2. clots removed. see not -- -- Treatment Comments -- venous cannulation x 2,cannulation above hematoma good flow Treatment initiated;denies needs at this time other Tx ended 3 hrs early,venous line infiltrate,Dr Polanco notified Row Name 06/02/20 1115 06/02/20 1100 06/02/20 1045 Hemodialysis Intra - treatment BP (!) 136/114 (!) 154/116 (!) 152/94 Pulse 122 123 120 Blood Flow Rate (mL/min) 350 mL/min 0 mL/min 350 mL/min Dialysate Temperature 96.6 ??F (35.9 ??C) 96.8 ??F (36 ??C) 96.8 ??F (36 ??C) Dialysate Flow Rate (mL/min) 700 ml/min 700 ml/min 700 ml/min Arterial Pressure (mmHg) -174 mmHg -320 mmHg -271 mmHg Venous Pressure (mmHg) 214 mmHg 27 mmHg 165 mmHg Transmembrane Pressure (mmHg) 41 mmHg 44 mmHg 49 mmHg Conductivity (mS/cm) 15.5 mS/cm 13.9 mS/cm 13.9 mS/cm Ultrafiltration Rate (mL/hr) 360 mL/hr 0 mL/hr 360 mL/hr Ultrafiltration Total (ml) 297 mL 230 mL 173 mL Total Liters Processed (L) 18.2 Liters 14.37 Liters 11.68 Liters NS FLush (ml) 0 mL 0 mL 0 mL Access and face visible Yes Yes Yes Arteriovenous Lines Secure Yes Yes Yes Air detector engaged Yes Yes Yes Hemosafe Clip On Yes Yes Yes NVL Alarm engaged Yes Yes Yes Treatment Complications other venous access infiltrated -- -- Treatment Interventions blood reinfused -- -- Treatment Comments treatment terminated VSS other Given 0.5 mg Dilaudid for leg pains Row Name 06/02/20 1030 06/02/20 1015 06/02/20 1000 Hemodialysis Intra - treatment BP (!) 172/127 (!) 217/158 (!) 141/94 Pulse 107 71 120 Blood Flow Rate (mL/min) 350 mL/min 350 mL/min 0 mL/min Dialysate Temperature 96.6 ??F (35.9 ??C) 96.8 ??F (36 ??C) 96.8 ??F (36 ??C) Dialysate Flow Rate (mL/min) 700 ml/min 700 ml/min 700 ml/min Arterial Pressure (mmHg) -200 mmHg -260 mmHg 12 mmHg Venous Pressure (mmHg) 150 mmHg 140 mmHg 32 mmHg Transmembrane Pressure (mmHg) 44 mmHg 43 mmHg 30 mmHg Conductivity (mS/cm) 13.9 mS/cm 13.8 mS/cm 13.6 mS/cm Ultrafiltration Rate (mL/hr) 360 mL/hr 360 mL/hr 0 mL/hr Ultrafiltration Total (ml) 93 mL 30 mL 0 mL Total Liters Processed (L) 7.34 Liters 3.66 Liters 0 Liters NS FLush (ml) 0 mL 0 mL 0 mL Access and face visible Yes Yes Yes Arteriovenous Lines Secure Yes Yes Yes Air detector engaged Yes Yes Yes Hemosafe Clip On Yes Yes Yes NVL Alarm engaged Yes Yes Yes Treatment Comments denies needs at this time denies needs at this time Treatment initiated Row Name 06/01/20 1045 05/29/20219905/29/202144 Hemodialysis Intra - treatment BP -- (!) 222/198 -- Pulse -- 87 -- Blood Flow Rate (mL/min) 0 mL/min 0 mL/min 0 mL/min Dialysate Temperature 91.4 ??F (33 ??C) 96.8 ??F (36 ??C) 96.8 ??F (36 ??C) Dialysate Flow Rate (mL/min) 0 ml/min 600 ml/min 600 ml/min Arterial Pressure (mmHg) -- 1 mmHg -2 mmHg Venous Pressure (mmHg) -- 1 mmHg 1 mmHg Transmembrane Pressure (mmHg) -- 6 mmHg 25 mmHg Conductivity (mS/cm) 0 mS/cm 10.7 mS/cm 13.7 mS/cm Ultrafiltration Rate (mL/hr) 0 mL/hr 0 mL/hr 0 mL/hr Ultrafiltration Total (ml) 0 mL 468 mL 468 mL Total Liters Processed (L) 0 Liters 56.95 Liters 56.95 Liters Treatment Comments treatment terminated -- ausculated heart rate at 100. report given to Chapito Matthews RN -- 02 3L NC given to patient. pt alert,c/o pain in legs. Row Name 05/29/20212905/29/20211405/29/202099 Hemodialysis Intra - treatment BP 100/44 (!) 74/63 101/82 Pulse 119 (!) 48 89 Blood Flow Rate (mL/min) 0 mL/min 0 mL/min 350 mL/min Dialysate Temperature 96.8 ??F (36 ??C) 96.8 ??F (36 ??C) 96.8 ??F (36 ??C) Dialysate Flow Rate (mL/min) 600 ml/min 600 ml/min 600 ml/min Arterial Pressure (mmHg) 30 mmHg 30 mmHg -218 mmHg Venous Pressure (mmHg) 102 mmHg 112 mmHg 124 mmHg Transmembrane Pressure (mmHg) 53 mmHg -- 39 mmHg Conductivity (mS/cm) 13.7 mS/cm 13.7 mS/cm 13.7 mS/cm Ultrafiltration Rate (mL/hr) 0 mL/hr 0 mL/hr 40 mL/hr Ultrafiltration Total (ml) 468 mL 468 mL 458 mL Total Liters Processed (L) 56.95 Liters 56.95 Liters 55.9 Liters Access and face visible Yes Yes Yes Arteriovenous Lines Secure Yes Yes Yes Air detector engaged Yes Yes Yes Hemosafe Clip On Yes Yes Yes NVL Alarm engaged Yes Yes Yes Treatment Comments VSS;denies needs at this time sleeping at this time report called. [facility] report [id number]. treatment terminated;blood rinsed back pt cont c/o leg pain/anxious at this time reposition cuff. blood rinsed back pt cont to in pain repositon pt to lift side for comfort Row Name 05/29/20204405/29/20202905/29/202014 Hemodialysis Intra - treatment BP (!) 166/128 (!) 166/128 (!) 173/132 Pulse -- 60 69 Blood Flow Rate (mL/min) 350 mL/min 350 mL/min 350 mL/min Dialysate Temperature 96.8 ??F (36 ??C) 96.8 ??F (36 ??C) 96.8 ??F (36 ??C) Dialysate Flow Rate (mL/min) 600 ml/min 600 ml/min 600 ml/min Arterial Pressure (mmHg) -191 mmHg -198 mmHg -208 mmHg Venous Pressure (mmHg) 127 mmHg 130 mmHg 134 mmHg Transmembrane Pressure (mmHg) 22 mmHg 30 mmHg 37 mmHg Conductivity (mS/cm) 13.7 mS/cm 13.7 mS/cm 13.7 mS/cm Ultrafiltration Rate (mL/hr) 40 mL/hr 40 mL/hr 40 mL/hr Ultrafiltration Total (ml) 448 mL 438 mL 428 mL Total Liters Processed (L) 51.11 Liters 46.33 Liters 41.5 Liters Access and face visible Yes Yes Yes Arteriovenous Lines Secure Yes Yes Yes Air detector engaged Yes Yes Yes Hemosafe Clip On Yes Yes Yes NVL Alarm engaged Yes Yes Yes Treatment Comments -- reposition b/p cuff 101/[address] Kamran mirza to d/c tx other anxious, wants to stop HD early other Anxious, PRN Xanax given. Row Name 05/29/20200305/29/20199905/29/20 194 Hemodialysis Intra - treatment BP 102/76 (!) 47/36 (!) 150/95 Pulse 72 -- 98 Blood Flow Rate (mL/min) 350 mL/min 350 mL/min 350 mL/min Dialysate Temperature 96.8 ??F (36 ??C) 96.8 ??F (36 ??C) 96.8 ??F (36 ??C) Dialysate Flow Rate (mL/min) 600 ml/min 600 ml/min 600 ml/min Arterial Pressure (mmHg) -204 mmHg -181 mmHg -174 mmHg Venous Pressure (mmHg) 138 mmHg 131 mmHg 150 mmHg Transmembrane Pressure (mmHg) 38 mmHg 29 mmHg 26 mmHg Conductivity (mS/cm) 13.7 mS/cm 13.7 mS/cm 13.8 mS/cm Ultrafiltration Rate (mL/hr) 40 mL/hr 40 mL/hr 40 mL/hr Ultrafiltration Total (ml) 421 mL 418 mL 408 mL Total Liters Processed (L) 37.96 Liters 36.68 Liters 31.87 Liters Access and face visible Yes Yes Yes Arteriovenous Lines Secure Yes Yes Yes Air detector engaged Yes Yes Yes Hemosafe Clip On Yes Yes Yes NVL Alarm engaged Yes Yes Yes Symptoms -- -- anxious;other c/o bilateral leg pain. SEE MAR Treatment Comments -- Anxious, moaning other BP Recycled. BP cuff repositioned. VSS Row Name 05/29/20192905/29/20191405/29/20 184 Hemodialysis Intra - treatment BP -- (!) 173/153 118/84 Pulse -- 65 77 Resp -- 22 18 Blood Flow Rate (mL/min) -- 350 mL/min 350 mL/min Dialysate Temperature -- 96.8 ??F (36 ??C) 96.8 ??F (36 ??C) Dialysate Flow Rate (mL/min) -- 600 ml/min 600 ml/min Arterial Pressure (mmHg) -- -165 mmHg -158 mmHg Venous Pressure (mmHg) -- 151 mmHg 148 mmHg Transmembrane Pressure (mmHg) -- 32 mmHg 35 mmHg Conductivity (mS/cm) -- 13.7 mS/cm 13.7 mS/cm Ultrafiltration Rate (mL/hr) -- 40 mL/hr 40 mL/hr Ultrafiltration Total (ml) -- 389 mL 369 mL Total Liters Processed (L) -- 22.17 Liters 12.48 Liters Access and face visible Yes Yes Yes Arteriovenous Lines Secure Yes Yes Yes Air detector engaged Yes Yes Yes Hemosafe Clip On Yes Yes Yes NVL Alarm engaged Yes Yes Yes Treatment Comments other Reposition cuff 116/67hr 117. Dr. Cruz ok to give Dilaudi -- replaced b/p cuff placed on rt lower FA. CONT TO MONITOR VSS;denies needs at this time Row Name 05/29/20 1830 05/29/20 1815 05/29/20 1800 Hemodialysis Intra - treatment BP (!) 199/132 179/89 (!) 80/54 Pulse 52 92 129 Resp -- 18 -- Blood Flow Rate (mL/min) 350 mL/min 350 mL/min 250 mL/min Dialysate Temperature 96.8 ??F (36 ??C) 96.8 ??F (36 ??C) 96.8 ??F (36 ??C) Dialysate Flow Rate (mL/min) 600 ml/min 600 ml/min 600 ml/min Arterial Pressure (mmHg) -238 mmHg -159 mmHg -160 mmHg Venous Pressure (mmHg) 126 mmHg 138 mmHg 77 mmHg Transmembrane Pressure (mmHg) 51 mmHg 45 mmHg 28 mmHg Conductivity (mS/cm) 13.7 mS/cm 13.4 mS/cm 13.7 mS/cm Ultrafiltration Rate (mL/hr) 630 mL/hr 630 mL/hr 0 mL/hr Ultrafiltration Total (ml) 254 mL 99 mL 0 mL Total Liters Processed (L) 7.81 Liters 2.87 Liters 0 Liters Access and face visible Yes Yes Yes Arteriovenous Lines Secure Yes Yes Yes Air detector engaged Yes Yes Yes Hemosafe Clip On Yes Yes Yes NVL Alarm engaged Yes Yes Yes Treatment Comments other PLACED b/p cuff on rt lower leg. denies needs at this time Treatment initiated;VSS;denies needs at this time arterial access difficulty canulation, reposition cuff 179/8 Assessment Data (last 720 hours) HD Post-Treatment Row Name 06/04/20 1900 06/02/20 1130 05/29/20 2100 Post-Hemodialysis Assessment Post-Treatment procedures Blood returned;Access bleed time < 10 min Blood returned Blood returned;Access bleed time > 10 min Prescribed Treatment Time (minutes) 240 240 -- Duration of Treatment (minutes) 210 minutes 66 minutes 180 minutes Dialyzer Clearance Lightly streaked Lightly streaked Lightly streaked Total Liters Processed (L) 69.24 Liters -- -- Rinseback Volume (mL) 400 mL 300 mL 400 mL Other fluids given (mL) -- 0 mL 0 mL Hemodialysis Output (mL) 1075 mL 345 mL 400 mL Net fluid removal (ml) 625 mL 0 mL 498 mL BP 132/70 -- -- Pulse 114 -- -- Temp 97.3 ??F (36.3 ??C) 98 ??F (36.7 ??C) 98.6 ??F (37 ??C) Temp src Temporal Temporal Temporal Resp 16 18 18 Post-Hemodialysis Comments -- ok to terminated tx pe Dr Ceja Tx ended 3hrs early d/t venous line infiltrate -- tx terminated per pt request. Hemodialysis Weights Dry Weight 273 lb 5.9 oz (124 kg) -- 273 lb 5.9 oz (124 kg) Fluid removal goal 625 -- 500 Last Treatment Post Weight 244 lb 11.4 oz (111 kg) -- 278 lb (126.1 kg) Pre Weight 253 lb 8.5 oz (115 kg) -- 246 lb 0.5 oz (111.6 kg) Pre Weight Source Bed Scale Weight -- Bed Scale Weight Post Weight 250 lb 14.1 oz (113.8 kg) 230 lb 2.6 oz (104.4 kg) 244 lb 11.4 oz (111 kg) Post Weight Source Bed Scale Weight Bed Scale Weight Bed Scale Weight Respiratory Respiratory (WDL) -- -- WDL Respiratory Pattern Regular;Easy;Unlabored Regular;Unlabored -- Chest Assessment Chest expansion symmetrical Chest expansion symmetrical -- Bilateral Breath Sounds Diminished;Clear Clear;Diminished -- Cough -- None -- Edema Edema Generalized Generalized -- n/a Generalized Edema Non-pitting Non-pitting -- RLE Edema Non Pitting Edema +1 -- LLE Edema Non Pitting Edema +1 -- Cardiac Cardiac (WDL) X -- X Cardiac Regularity Regular Regular -- Heart Sounds S1, S2 S1, S2 S1, S2 Jugular Venous Distention (JVD) No No No Cardiac Rhythm ST ST -- tackycardia Cardiac Symptoms -- None -- Integumentary Integumentary (WDL) -- -- X Skin Color -- -- Appropriate for ethnicity Skin Condition/Temp -- -- Warm;Dry Skin Integrity -- -- Surgical wound Skin Location -- -- abd Skin Turgor -- -- Non-tenting Gastrointestinal Gastrointestinal (WDL) -- -- X Last BM Date -- -- 05/29/20 Abdomen Inspection -- -- Soft;Rounded Bowel Sounds (All Quadrants) -- -- Active Emelina Churchill RN CM [phone] documented in this encounter Discharge Instructions * Discharge Instructions* Jay Day MD - 06/07/2020 6:27 PM EDT Leoncio Rollins Jr., Here are your hospital discharge instructions: --> You were hospitalized for: Osteomyelitis of the back which is an infection of the bone, which we believe it is the same infection that you had back in April of this year but it didn't revolve yet. 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 Bone and Joint Infections, Adult Bone infections (osteomyelitis) and joint infections (septic arthritis) occur when bacteria or other germs get inside a bone or a joint. This can happen if you have an infection in another part of your body that spreads through your blood. Germs from your skin or from outside of your body can also cause this type of infection if you have a wound or a broken bone (fracture) that breaks the skin. Anyone can get a bone infection or joint infection. You may be more likely to get this type of infection if you have a condition, such as diabetes, that lowers your ability to fight infection or increases your chances of getting an infection. Bone and joint infections can cause damage, and they canspread to other areas of your body. They need to be treated quickly. What are the causes? Most bone and joint infections are caused by bacteria. They can also be caused by other germs, suchas viruses and funguses. What increases the risk? This condition is more likely to develop in: ?? People who recently had surgery, especially bone or joint surgery. ?? People who have a long-term (chronic) disease, such as: ?? HIV (human immunodeficiency virus). ?? Diabetes. ?? Rheumatoid arthritis. ?? Sickle cell anemia. ?? Elderly people. ?? People who take medicines that block or weaken the body???s defense system (immune system). ?? People who have a condition that reduces their blood flow. ?? People who are on kidney dialysis. ?? People who have an artificial joint. ?? People who have had a joint or bone repaired with plates or screws (surgical hardware). ?? People who use or abuse IV drugs. ?? People who have had trauma, such as stepping on a nail. What are the signs or symptoms? Symptoms vary depending on the type and location of your infection. Common symptoms of bone and joint infections include: ?? Fever and chills. ?? Redness and warmth. ?? Swelling. ?? Pain and stiffness. ?? Drainage of fluid or pus near the infection. ?? Weight loss and fatigue. ?? Decreased ability to use a hand or foot. How is this diagnosed? This condition may be diagnosed based on symptoms, medical history, a physical exam, and diagnostictests. Tests can help to identify the cause of the infection. You may have various tests, such as: ?? A sample of tissue, fluid, or blood taken to be examined under a microscope. ?? A procedure to remove fluid from the infected joint with a needle (joint aspiration) for testingin a lab. ?? Pus or discharge swabbed from a wound for testing to identify germs and to determine what type of medicine will kill them (culture and sensitivity). ?? Blood tests to look for evidence of infection and inflammation (biomarkers). ?? Imaging studies to determine how severe the bone or joint infection is. These may include: ?? X-rays. ?? CT scan. ?? MRI. ?? Bone scan. How is this treated? Treatment depends on the cause and type of infection. Antibiotic medicines are usually the first treatment for a bone or joint infection. Treatment with antibiotics may include: ?? Getting IV antibiotics. This may be done in a hospital at first. You may have to continue IV antibiotics at home for several weeks. You may also have to take antibiotics by mouth for several weeksafter that. ?? Taking more than one kind of antibiotic. Treatment may start with a type of antibiotic that works against many different bacteria (broad spectrum??antibiotics). IV antibiotics may be changed if tests show that another type may work better. Other treatments may include: ?? Draining fluid from the joint by placing a needle into it (aspiration). ?? Surgery to remove: ?? or dying tissue from a bone or joint. ?? An infected artificial joint. ?? Infected plates or screws that were used to repair a broken bone. Follow these instructions at home: ?? Take medicines only as directed by your health care provider. ?? Take your antibiotic medicine as directed by your health care provider. Finish the antibiotic even if you start to feel better. ?? Follow instructions from your health care provider about how to take IV antibiotics at home. ?? Ask your health care provider if you have any restrictions on your activities. ?? Keep all follow-up visits as directed by your health care provider. This is important. Contact a health care provider if: ?? You have a fever or chills. ?? You have redness, warmth, pain, or swelling that returns after treatment. Get help right away if: ?? You have rapid breathing or you have trouble breathing. ?? You have chest pain. ?? You cannot drink fluids or make urine. ?? The affected arm or leg swells, changes color, or turns blue. This information is not intended to replace advice given to you by your health care provider. Make sure you discuss any questions you have with your health care provider. Document Released: 07/31/2006 Document Revised: 01/05/2017 Document Reviewed: 07/29/2015 [employer] Interactive Patient Education ?? 2018 [employer]. --> Medication changes: 1) Stop Cellcept 2) Increase the dose of Cyclosporin to 75 mg twice daily 3) Decrease the dose of Metoprolol to 25 mg twice daily --> New medications: 1) Vancomycin IV for 8 weeks (end date 07/22/2020) 2) Fluconazole 200 mg once daily (end date 06/20/2020) --> Other Instructions: 1) Physical and occupational therapy 2) 3) Thank you, Medicine [facility] Team Future Appointments Date Time Provider Department Center 07/01/2020 2:30 PM Ravi Biswas MD [facility] Recent Labs 06/05/20 1200 06/06/20 0620 06/07/20 0727 NA 139 140 139 K 4.4 4.2 4.4 CL 100 101 99 CO2 28 27 26 BUN 28* 36* 44* CREATININE 6.92* 8.28* 10.02* GLUCOSE 170* 119* 121* CALCIUM 9.2 9.0 9.3 MG 2.0 -- 2.1 PHOS 4.5 4.9* 5.1* Recent Labs 06/05/20 1200 06/07/20 0727 WBC 5.3 5.3 HGB 7.4* 7.5* HCT 22.1* 23.1* PLT 281 259 INR 1.3* -- PROTIME 16.8* -- Recent Labs 06/05/20 1200 06/07/20 0727 AST 10* 10* ALT 7 4* ALKPHOS 60 63 BILITOT 0.4 0.4 BILIDIRECT 0.09 0.08 documented in this encounter Medications at Time [...] 5 days. 20 tablet 0 06/30/20 20 ALPRAZolam (XANAX) 0.25 MG tablet TAKE 1 Tablet by mouth daily 15 minutes prior to dialysis 0 06/25/20 20 ALPRAZolam (XANAX) 0.5 MG tablet Take 0.5 mg by mouth 3 times a day as needed. 0 06/25/20 ALPRAZolam (XANAX) 1 MG tablet Take by mouth. 06/25/20 blood sugar diagnostic Strp Use to test blood sugar up to 4 times a day. Diagnosis for use: E 9.65. For use with One Touch Verio meters. 150 strip 5 8 03/18/20 blood-glucose meter (ONETOUCH VERIO SYSTEM) [facility] [place] Use as instructed. 1 each 8 03/18/20 calcitRIOL (ROCALTROL) 0.25 MCG capsule Take by mouth. 0 06/25/20 calcium acetate,phosphat bind, (PHOSLO) 667 mg capsule Take by mouth. 0 06/25/20 carBAMazepine ER (TEGRETOL XR) 200 MG 12 hr tablet Take by mouth. 0 06/25/20 cephALEXin (KEFLEX) 500 MG capsule TAKE ONE CAPSULE BY MOUTH TWICE DAILY FOR SEVEN DAYS 0 06/25/20 cyclobenzaprine (FLEXERIL) 10 MG tablet TAKE ONE TABLET BY MOUTH EVERY EIGHT HOURS NEEDED FOR MUSCLE SPASMS 0 06/25/20 cycloSPORINE modified (NEORAL) 100 MG capsule Take 1 capsule (100 mg total) by mouth 2 times a day. 60 capsule 0 07/06/20 20 cycloSPORINE modified (NEORAL) 25 MG capsule Take 2 capsules (50 mg total) by mouth 2 times a day. 120 capsule 5 03/24/2020 8:57 AM EDT 0 06/25/20 20 cycloSPORINE, SANDIMMUNE, 25 MG capsule Take by mouth. 0 06/25/20 doxycycline (MONODOX) 100 MG capsule Take 100 mg by mouth 2 times a day. 0 06/25/20 entecavir (BARACLUDE) 0.5 MG tablet Take 1 tablet (0.5 mg total) by mouth every 7 days. 4 tablet 5 0 07/10/20 20 ergocalciferol (ERGOCALCIFEROL) 1,250 mcg (50,000 unit) capsule Take 50,000 Units by mouth every Monday, , and Monday. 03/18/20 22 famotidine (PEPCID) 20 MG tablet Take 20 mg by mouth daily. 07/20/20 fluconazole (DIFLUCAN) 100 MG tablet Take 100 mg by mouth daily. 0 06/25/20 20 fluticasone propionate (FLONASE) 50 mcg/actuation nasal spray Use into each nostril. 0 11/01/19 22 gabapentin (NEURONTIN) 100 MG capsuleIndications: Neuropathy Take 4 capsules (400 mg total) by mouth daily. 180 capsule 9 06/25/20 20 gabapentin (NEURONTIN) 100 MG capsule Take by mouth. 0 06/25/20 gabapentin (NEURONTIN) 100 MG capsuleIndications: Other osteonecrosis, left femur (CMS-HCC) Take 1 capsule (100 mg total) by mouth 2 times a day. 90 capsule 0 11/16/19 22 gabapentin (NEURONTIN) 800 MG tablet Take by mouth. 06/25/20 gabapentin (NEURONTIN) 800 MG tablet take 1&1/2 TABLETS BY MOUTH THREE TIMES DAILY 0 06/25/20 hydrALAZINE (APRESOLINE) 100 MG tablet 2 times a day. 0 06/25/20 hydrALAZINE (APRESOLINE) 100 MG tablet Take 1 tablet (100 mg total) by mouth every 8 hours. 120 tablet 0 11/09/19 24 hydrALAZINE (APRESOLINE) 50 MG tablet Take 100 mg by mouth 3 times a day. 06/25/20 20 hydrALAZINE (APRESOLINE) 50 MG tablet Take by mouth. 06/25/20 hydrocortisone 2.5 % cream Apply to face daily as directed 0 06/25/20 hydrOXYzine pamoate (VISTARIL) 25 MG capsule take 1 Capsule by mouth daily 1 hour prior to dialysis 0 06/25/20 insulin NPH and regular human (HUMULIN 70/30 U-100 KWIKPEN) 100 unit/mL (70-30) InPn Inject subcutaneously. 0 11/12/20 20 insulin NPH isoph U-100 human (HUMULIN N NPH INSULIN KWIKPEN) 100 unit/mL (3 mL) InPnIndications:S/P liver transplant (CMS-HCC),Hyperglyc emia Inject subcutaneously 20 units in the AM and 8 units in the PM. 15 mL 5 9 06/25/20 20 insulin NPH isoph U-100 human (HUMULIN N NPH INSULIN KWIKPEN) 100 unit/mL (3 mL) InPnIndications:S/P liver transplant (CMS-HCC),Hyperglyc emia Inject subcutaneously 12 units in the AM and 6 units in the PM. 15 mL 5 0 11/02/19 22 JANUVIA 100 mg tablet 0 06/25/20 20 ketoconazole (NIZORAL) 2 % shampoo Wash hairline and face 2-3 times weekly 0 06/25/20 20 lancets (Optrace DELCareem LANCETS) 33 gauge Misc Use 1 strip as directed 4 times daily before meals and at bedtime. 150 each 5 8 03/18/20 22 lidocaine-prilocain e (EMLA) cream Apply topically. 0 07/20/20 20 linezolid (ZYVOX) 600 mg tablet Take 600 mg by mouth 2 times a day. 0 06/25/20 20 lisinopriL (PRINIVIL) 40 MG tablet Take 40 mg by mouth daily. 0 06/25/20 20 lisinopriL (PRINIVIL) 40 MG tablet Take 1 tablet by mouth daily. 0 03/18/20 22 melatonin 3 mg Tab Take 2 tablets (6 mg total) by mouth at bedtime. 30 tablet 0 03/16/20 22 methocarbamoL (ROBAXIN) 500 MG tablet TAKE ONE TABLET EVERY EIGHT HOURS NEEDED FOR MUSCLE SPASMS 0 06/25/20 20 methocarbamoL (ROBAXIN) 500 MG tablet Take 1 tablet (500 mg total) by mouth 4 times daily before meals and at bedtime. 120 tablet 0 01/08/20 21 metoprolol succinate (TOPROL-XL) 100 MG 24 hr tablet Take 100 mg by mouth at bedtime. 0 06/25/20 20 metoprolol tartrate (LOPRESSOR) 100 MG tablet Take by mouth. 06/25/20 metoprolol tartrate (LOPRESSOR) 25 MG tablet Take 1 tablet (25 mg total) by mouth 2 times a day. 60 tablet 0 03/16/20 metoprolol tartrate (LOPRESSOR) 50 MG tablet Take by mouth. 0 06/25/20 mycophenolate (CELLCEPT) 250 mg capsule Take 1 capsule (250 mg total) by mouth 2 times a day. 60 capsule 11 03/10/2020 9:05 AM EDT 0 06/25/20 ondansetron (ZOFRAN) 4 MG tablet Take by mouth. 0 06/25/20 ondansetron (ZOFRAN-ODT) 4 MG disintegrating tablet Take 1 tablet (4 mg total) by mouth every 8 hours as needed. 8 04/28/20 24 oxyCODONE (ROXICODONE) 5 MG immediate release tablet Take 5 mg by mouth every 6 hours as needed. 0 06/25/20 20 oxyCODONE-acetamino phen (PERCOCET) 10-325 mg per tablet TAKE ONE TABLET BY MOUTH THREE TIMES DAILY NEEDED FOR SEVERE pain 0 06/25/20 pantoprazole (PROTONIX) 40 MG tablet Take 1 tablet (40 mg total) by mouth daily. 30 tablet 0 03/18/20 pen needle, diabetic 32 gauge x /32 Ndle Use as directed to inject insulin 4 times daily. 150 each 5 8 03/18/20 polyethylene glycol (MIRALAX) 17 gram packet Take 17 g by mouth 2 times a day as needed. 100 packet 9 06/25/20 proMETHazine (PHENERGAN) 25 MG tablet take 1 tablet by ORAL route every 6 hours as needed 9 06/25/20 QUEtiapine (SEROQUEL) 25 MG tablet Take 0.5 tablets (12.5 mg total) by mouth at bedtime. 15 tablet 0 03/20/20 22 valACYclovir (VALTREX) 1000 MG tablet Take 1,000 mg by mouth 3 times a day. 0 06/25/20 20 vancomycin (VANCOCIN) 750 mg SolR Intravenous. 0 06/25/20 20 vancomycin (VANCOCIN) IVPB 1000 mg with dialysis. 0 07/20/20 20 documented as of this encounter Progress Notes * Tanya Jackson, PT - 06/08/2020 10:03 AM EDT Physical Therapy Treatment Name: Leoncio Rollins : 1975 Attending Physician: Aby Cavazos MD Admission Diagnosis: POST-OP INFECTION Date: 06/08/2020 Room: 8024/U8024 Reviewed Pertinent hospital course: Yes Hospital Course PT/OT: 45 y.o. M p/w weakness and back pain. PMH of liver cirrhosis s/p OLT (2016) and recent L4-5 discectomy and posterior decompression; 05/28-05/29: coffee ground emesis; MRI L spine (05/30): persistent osteomyelitis discitis at L4-5 with moderate ventral epidural abscess with some compression, neurosx consulted with conservative mgmt, 05/28 EGD with no active bleeding Activity Level: Activity as tolerated Assessment Pt tolerates treatment session well this date, continues to be limited 2/2 pain but is able to progress OOB mobility and tolerates STS attempt this date. Pt continues to require cuing for log roll technique for bed mobility. Pt is well below independent baseline level of function and will benefit from skilled therapy services to improve activity tolerance, mobility, and strength Co-treatment indicated: to integrate multiple skills simultaneously in order to challenge patient and advance progress Recommendation Recommendation: Short-term skilled PT Equipment Recommended: Defer until further assessment Outcome Measures AM-PAC 6 Clicks Basic Mobility Inpatient Short Form: PT 6 Clicks Score: 11 Mobility Recommendations for Staff Patient ability: Requires frequent repositioning (at least every 2 hours) Cognition Overall Cognitive Status: Within Functional Limits Cognitive Assessment: Arousal/ Alertness;Orientation Level;Behavior;Following Commands;Safety Judgment;Insight Arousal/Alertness: Alert Orientation Level: Oriented X4 Behavior: Cooperative;Apprehensive Following Commands: Follows multistep commands;Requires repetition of instruction;Requires verbal cues Safety Judgment: Decreased safety awareness;Impaired judgment;Decreased awareness of safety precautions Insight: Demonstrated decreased insght into limitations and abilites to complete ADls safely Pain Pain Score: 9 Pain Location: Leg Pain Descriptors: Sharp Pain Intervention(s): Ambulation/increased activity;Emotional support Therapist reported pain to: RN issued pain meds prior to tx session per chart Mobility Bed Mobility Rolling: Minimal assistance;towards the left;towards the right Supine to Sit: Moderate assistance;of 2 people;towards the left;increased time to complete task(x 2reps ) Sit to Supine: Moderate assistance;of 2 people;towards the right;head of bed flat(cues for log rolltechnique) Transfers Sit to Stand: Maximum assistance;of 2 people(tolerates stand ~10 sec before requiring return to sit) Balance Sitting - Static: Stand-by assistance Sitting - Dynamic: Contact Guard Assistance Standing - Static: Maximum Assistance;2 Person Assistance Standing - Dynamic: Not Tested Position after Treatment and Safety Handoff Position after therapy session: Bed in chair position Details: Call light/ needs within reach Alarms: Bed Alarms Status: Unchanged from previous setting Goals Goals Met: Sit to stand Goals to be met by: 06/12/20 Patient will transition from supine to sit: Minimal assistance(goal met and progressed 06/03) Patient will transfer from sit to stand: Moderate assistance(goal met and progressed 06/08) Patient will ambulate: Will tolerate assessment Pt Will report pain with functional mobility at: 4/10 or less Long-term goal to be met by: 06/12/20 Clock Mechanic Goal : = STG Patient Stated Goal #1: decreased pain Patient/Family Education Educated patient on the role of physical therapy, goals, plan of care, discharge recommendations and transfer training and fall prevention strategies, including use of call light; patient verbalized understanding. Plan Plan Treatment/Interventions: LE strengthening/ROM, Patient/family training, Gait training, Continued evaluation, Therapeutic Activity PT Frequency: minimum 3x/week The plan of care and recommendations assesses the patient's and/or caregiver's readiness, willingness, and ability to provide or support functional mobility and ADL tasks as needed upon discharge. Tanya Jackson PT [id number], DPT Pager: [phone] M-F: [phone] Time Start Time: 0844 Stop Time: 09 Time Calculation (min): 26 min Charges $Therapeutic Activity: 2 units Problem List Patient Active Problem List Diagnosis ??? Esophagitis ??? Essential (primary) hypertension ??? Type 2 diabetes mellitus with diabetic chronic kidney disease (CMS Dx) ??? Liver transplanted (CMS Dx) ??? Liver transplant recipient (CMS Dx) ??? Encounter for therapeutic drug level monitoring ??? Immunosuppression (CMS Dx) ??? Peripheral edema ??? Unstable angina pectoris (CMS Dx) ??? Abnormal stress test ??? History of liver transplant (CMS Dx) ??? ESRD (end stage renal disease) (CMS Dx) ??? Group C streptococcal infection ??? Cytomegaloviral disease, unspecified (CMS Dx) ??? Pre-op evaluation ??? Anemia, unspecified ??? Osteomyelitis (CMS Dx) ??? Other fatigue ??? Vitamin D deficiency, unspecified ??? Unspecified protein-calorie malnutrition (CMS Dx) ??? Sepsis (CMS Dx) ??? Secondary hyperparathyroidism of renal origin (CMS Dx) ??? Renal osteodystrophy ??? Other disorders of electrolyte and fluid balance, not elsewhere classified ??? Nausea ??? SAL (nonalcoholic steatohepatitis) ??? intermediate card tender (current) use of insulin (CMS Dx) ??? Leukocytosis ??? Hyponatremia ??? Hypocalcemia ??? Epidural abscess ??? Dependence on renal dialysis (CMS Dx) ??? Disorder of phosphorus metabolism, unspecified ??? Discitis ??? Anaphylactic shock, unspecified, initial encounter ??? Altered mental state ??? Allergy, unspecified, initial encounter Past Medical History Past Medical History: Diagnosis [...] 05/29/2020 Procedure: EGD WITH BIOPSY; Surgeon: Rashid Winchester MD; Location: ENDOSCOPY; Service: Gastroenterology; Laterality: N/A; [...] PROCEDURE 10/2016 ??? TIPS Revision 04/2017 * Brandy Rivera OT - 06/08/2020 9:58 AM EDT Occupational Therapy Treatment Name: Leoncio Rollins Jr. : 1975 Attending Physician: Aby Cavazos MD Admission Diagnosis: POST-OP INFECTION Date: 06/08/2020 Room: 8024/U8024 Reviewed Pertinent hospital course: Yes Hospital Course PT/OT: 45 y.o. M p/w weakness and back pain. PMH of liver cirrhosis s/p OLT (2016) and recent L4-5 discectomy and posterior decompression; 05/28-05/29: coffee ground emesis; MRI L spine (05/30): persistent osteomyelitis discitis at L4-5 with moderate ventral epidural abscess with some compression, neurosx consulted with conservative mgmt, 05/28 EGD with no active bleeding Activity Level: Activity as tolerated Aide: n/a Recommendation Recommendation: Short-term skilled OT Equipment Recommendations: Defer at this time Assessment Assessment: Decreased Safe judgment during ADL, Decreased Functional Mobility, Decreased ADL status, Decreased Balance, Decreased activity tolerance, Decreased self-care transfers, Decreased IADLs, Decreased sensation Co-treatment indicated: to integrate multiple skills simultaneously in order to challenge patient and advance progress Prognosis for OT goals: Good Pt agreeable to participate in OT tx session on this date demo'ing progress towards OT goals meeting 1 STG. Pt completed x2 reps of sup<>sit with ModAx2 and x1 functional t/f from EOB with MaxAx2 up to RW. Pt continues to demo decreased safety awareness and self-limiting factors during functional tasks but completed a LB dressing task with MaxA in supine. Pt would benefit from continued acute OT services to address deficits and progress towards OT POC and goals. D/c rec: SNF Outcome Measures AM-PAC 6 Clicks Daily Activity Inpatient Short Form: OT 6 Clicks Score: 17 Cognition Overall Cognitive Status: Within Functional Limits Cognitive Assessment: Arousal/ Alertness;Orientation Level;Behavior;Following Commands;Safety Judgment;Insight Arousal/Alertness: Alert Orientation Level: Oriented X4 Behavior: Cooperative;Apprehensive Following Commands: Follows multistep commands;Requires repetition of instruction;Requires verbal cues Safety Judgment: Decreased safety awareness;Impaired judgment;Decreased awareness of safety precautions Insight: Demonstrated decreased insght into limitations and abilites to complete ADls safely Pain Pain Score: 9 Pain Location: Leg Pain Descriptors: Sharp Pain Intervention(s): Ambulation/increased activity;Emotional support Therapist reported pain to: RN issued pain meds prior to tx session per chart Functional Mobility Bed Mobility Supine to Sit: Moderate assistance;of 2 people;towards the left;head of bed flat(x2 reps) Sit to Supine: Moderate assistance;towards the right;head of bed flat(x2 reps; pt requires verbal cues for log rolling technique) Functional Transfers Sit to Stand: Maximum assistance;of 2 people;up to assistive device(From EOB x1; up to RW) Balance Sitting - Static: Stand-by assistance(x2 reps of ~30 sec up to 2 min. Pt demo's pain-limiting factors in L hip abrupy lying back down.) Sitting - Dynamic: Contact Guard Assistance Standing - Static: Maximum Assistance;2 Person Assistance;With Assistive Device Standing-Static Asssistance Device: Rolling walker Standing - Dynamic: Maximum Assistance;2 Person Assistance;With Assistive Device Standing-Dynamic Assistance Device: Rolling walker ADL Feeding: Supervision Feeding Deficit: Set-up;Beverage management Location Assessed Eating: Supine in bed Lower Body Dressing: Maximum assistance Lower Body Dressing Deficit: Don/doff R sock;Don/doff L sock;Thread RLE;Thread LLE;Pull up over hips;Set-up Location Assessed LE Dressing: Supine in bed Position after Treatment/Safety Handoff Position after therapy session: Bed in chair position Details: Call light/ needs within reach Alarms: Bed Alarms Status: Unchanged from previous setting Goals Goals to be met in: 1 week Patient stated goal: to return to baseline/PLOF Patient will complete supine to sit in prep for ADLs: Minimal assistance Patient will complete grooming task: Will tolerate assessment Patient will complete upper body dressing: Will tolerate assessment Patient will complete lower body dressing: Maximum assistance(Goal met and upgraded 06/08) Custodial Goal : Pt will complete a functional STS t/f with Lucrecia in prep for OOB ADL tasks. intermediate card tender goal to be met in: 2 weeks Collaborated with: Patient Plan Plan Treatment Interventions: ADL retraining, Activity Tolerance training, Functional transfer training,Patient/Family training, Fine motor coordination activities, Therapeutic Activity, UE strengthening/ROM, Neuro muscular reeducation, Compensatory technique education, Energy Conservation OT Frequency: minimum 3x/week The plan of [...] patient verbalized understanding. OT Time Start Time: 0844 Stop Time: 0910 Time Calculation (min): 26 min OT Charges $Therapeutic Activity: 8-22 mins $Self Care/ADL/Home Management Trainin-22 mins Brandy Rivera MS, OTR/L [facility] Pager #: [phone] Department #: [phone] Hours: [id number] Problem List Patient Active Problem List Diagnosis ??? Esophagitis ??? Essential (primary) hypertension ??? Type 2 diabetes mellitus with diabetic chronic kidney disease (CMS Dx) ??? Liver transplanted (CMS Dx) ??? Liver transplant recipient (CMS Dx) ??? Encounter for therapeutic drug level monitoring ??? Immunosuppression (CMS Dx) ??? Peripheral edema ??? Unstable angina pectoris (CMS Dx) ??? Abnormal stress test ??? History of liver transplant (CMS Dx) ??? ESRD (end stage renal disease) (CMS Dx) ??? Group C streptococcal infection ??? Cytomegaloviral disease, unspecified (CMS Dx) ??? Pre-op evaluation ??? Anemia, unspecified ??? Osteomyelitis (CMS Dx) ??? Other fatigue ??? Vitamin D deficiency, unspecified ??? Unspecified protein-calorie malnutrition (CMS Dx) ??? Sepsis (CMS Dx) ??? Secondary hyperparathyroidism of renal origin (CMS Dx) ??? Renal osteodystrophy ??? Other disorders of electrolyte and fluid balance, not elsewhere classified ??? Nausea ??? SAL (nonalcoholic steatohepatitis) ??? residential (current) use of insulin (CMS Dx) ??? Leukocytosis ??? Hyponatremia ??? Hypocalcemia ??? Epidural abscess ??? Dependence on renal dialysis (CMS Dx) ??? Disorder of phosphorus metabolism, unspecified ??? Discitis ??? Anaphylactic shock, unspecified, initial encounter ??? Altered mental state ??? Allergy, unspecified, initial encounter Past Medical History Past Medical History: Diagnosis [...] 05/29/2020 Procedure: EGD WITH BIOPSY; Surgeon: Rashid Winchester MD; Location: ENDOSCOPY; Service: Gastroenterology; Laterality: N/A; [...] PROCEDURE 10/2016 ??? TIPS Revision 04/2017 * Jay Day MD - 06/07/2020 1:33 PM EDT Department of Internal Medicine Daily Progress Note Chief Complaint / Reason for Follow-Up Leoncio Rollins Jr. is a 45 y.o. male with a history of ESRD on HD at home ([facility]), SAL cirrhosis s/p liver transplant 2017, pulmonary HTN, JC, DM2, HTN, obesity presenting to the hospital as direct admission with complaint of subacute low back pain and weakness following spinal surgery. Interval History / Subjective - Still complain of left leg pain. He feels the pain medication are helping but are not resolving the pain completely. - He have a questions about Kvng that would like the social human services assistants to answer. Review of Systems (Focused) Review of Systems Constitutional: Negative for chills and fever. Respiratory: Negative for cough and shortness of breath. Cardiovascular: Negative for chest pain. Musculoskeletal: Positive for back pain. +leg pain Medications Scheduled Meds: ??? acetaminophen 975 mg Oral Q6H ??? carBAMazepine 200 mg Oral Nightly (2099) ??? cycloSPORINE modified 75 mg Oral BID ??? entecavir 0.5 mg Oral Q7 Days ??? epoetin giancarlo-epbx 6,000 Units Subcutaneous Once per day on Mon ??? fluconazole 200 mg Oral Daily 0900 ??? gabapentin 200 mg Oral Nightly (2099) ??? heparin 5,000 Units Subcutaneous 3 times per day ??? hydrALAZINE 100 mg Oral 3 times per day ??? insulin lispro 0-5 Units Subcutaneous TID AC ??? lidocaine 1 patch Transdermal Q24H ??? melatonin 3 mg Oral Nightly (2099) ??? methocarbamoL 500 mg Oral QID ??? metoprolol tartrate 25 mg Oral BID ??? NIFEdipine 90 mg Oral BID ??? pantoprazole 40 mg Oral DAILY 0600 ??? polyethylene glycol 17 g Oral BID ??? quetiapine 12.5 mg Oral Nightly (2099) ??? senna-docusate 2 tablet Oral Nightly (2099) ??? terazosin 10 mg Oral Nightly (2099) ??? vancomycin 1,000 mg Intravenous Once Continuous Infusions: PRN Meds: ALPRAZolam, dextrose 50 % in water (D50W) OR dextrose 50 % in water (D50W), glucose, HYDROmorphone, ondansetron, proMETHazine, vancomycin intermittent/pulse dosing PLACEHOLDER ORDER Vital Signs Temp: [97.6 ??F (36.4 ??C)-98.8 ??F (37.1 ??C)] 97.6 ??F (36.4 ??C) Heart Rate: [92-105] 92 Resp: [16-18] 18 BP: (124-160)/(73-82) 154/78 Intake/Output Summary (Last 24 hours) at 06/07/2020 1341 Last data filed at 06/07/2020 1054 Gross per 24 hour Intake 1680 ml Output 200 ml Net 1480 ml Physical Exam Vital signs reviewed. General: Age appropriate male, in no acute distress Heart: Regular rate and rhythm, no murmurs, rubs, gallops Lungs: Clear to auscultation bilaterally, no wheezes or rales, normal work of breathing Abdomen: Soft, obese, non-tender, non-distended, scar present from prior liver transplant Extremities: No clubbing, no edema, AVF present on L UE for dialysis, localized swelling felt behind the left knee. Skin: No rashes, no jaundice Neuro: AOx4, moves all 4 extremities, Strength decreased/limited due to pain at L hip, normal sensation of lower extremities, follows commands Psych: Alert and appropriate, normal affect Laboratory Data CBC 06/07/2020 \ 7.5 / 5.3 \ / 259 / \ 23.1 \ Differential 06/05/2020 N 72.5 L 14.4 M 9.9 E 3.0 B 0.2 Renal 06/07/2020 139 99 44 / ___ __ / 121 \ 4.4 26 10.02 \ Ca 9.3 (06/07/2020) Mg 2.1 (06/07/2020) Phos 5.1 (06/07/2020) Lipids Lab Results Component Value Date CHOLTOT 236 (H) 01/27/2020 TRIG 303 (H) 01/27/2020 HDL 32 (L) 01/27/2020 LDL 143 01/27/2020 LFTs 06/07/2020 \ 0.4 / \ 0.08 / 10 \ / 4 / \ / 63 \ PT/INR/PTT - 06/05/2020 PT 16.8 INR 1.3 PTT 28.6 Lab Results Component Value Date TSH 3.59 01/27/2020 FREET4 1.03 10/20/2017 Lab 06/07/20 1250 06/06/20 2123 06/06/20 1838 06/06/20 1416 POC GLU MONITORING DEVICE 123* 113* 164* 153* Diagnostic Studies VASC Venous Duplex Lower Extremity Bilateral Final Result Duplex Scan Hemodialysis Access Final Result X-ray Comparison Images Final Result MRI Lumbar spine WO contrast Final Result IMPRESSION: 1. Transitional anatomy is noted at [...] a small postoperative seroma versus an abscess. Report Verified by: Leanna Wilks MD at 05/30/2020 9:05 PM EDT X-ray Chest PA or AP Final Result IMPRESSION: No acute cardiopulmonary abnormality. Report Verified by: Manolo Rosenthal MD at 05/29/2020 4:46 PM EDT X-ray Comparison Images Final Result X-ray Comparison Images Final Result X-ray Comparison Images Final Result CT Lumbar WO at OSH: - postoperative changes realted to posterior decompressive resection at L5 - Findings suspicious for L5-S1 discitis and osteomyelitis. - Abnormal soft tissue and fluid density in posterior paraspinous tissues at L3- S1 with apparent extension into the central canal at L5 level, suspicious for soft tissue infection ?? Assessment & Plan Leoncio Rollins Jr. is a 45 y.o. male being admitted to the hospital for concern for osteomyelitis. Medical problems being addressed in this encounter include the following: ?? Principal Problem: Osteomyelitis ([facility] Dx) Active Problems: Liver transplant recipient ([facility] Dx) ?? #Osteomyelitis Patient with recent spinal surgery now with back pain, difficulty walking and imaging findings concerning for osteomyelitis and soft tissue infection. Patient neurologically in tact. Patient receivedone dose of vanc and zosyn at OSH. - vancomycin, cefepime to cover empirically - MRI WO Spine: osteomyelitis discitis again noted at L4-L5 with a moderate- sized epidural abscess,compressing the distal thecal sac. - Transplant ID consult, recommend to continue IV vanco + cefepime, Cefepime was stopped on 06/06, and Vanc to be continued for 8 w - spine surgery consult : No surgical intervention, recommend complete course of IV Abx unless patient develops acute neurologic red flag - blood cultures x2 : NG after 5 days - follow-up blood cultures at OSH - NG after 5 days - Dilaudid 0.5 Q6h PRN for pain, leg pain not improved, Pain management was consulted 06/03, Scheduled Tylenol 975 mg q6h, and robaxin was added. - Went to IR for CT guided fluid aspiration 06/03 -- 12 mL of purulent fluid were aspirated and sent for culture,to guide antibiotics regimen: NGTD - US duplex of the left leg : no DVT - patient is to be discharge to [facility] on Monday #Upper GI Bleed #Anemia of Chronic disease Patient had an episode of black emesis on 05/28. Hb 7.3 down of 7.9 on admission. He was started onIV PPI and transitioned to PO after EGD. -S\p EGD which showed large amount of coffee ground fluid in stomach and circumferential adenomatous mass-like lesion in the distal esophagus at the GE junction.No e/o active bleeding. Biopsy : Squamocolumnar junctional mucosa with severe acute and chronic active inflammation, associated with prominent foveolar hyperplasia.No evidence of intestinal metaplasia, dysplasia, or malignancy.GMS stain for fungi and immunostain for CMV pending. - patient Hb after iHD was found to be 6.2 so 2 unit of pRBC was transfused with improvement to 7.8 - Trend Hb, transfuse if <7 #Esophageal candidiasis Biopsy of mass-like lesion in the distal esophagus with GMS stain demonstrated fungal yeasts, morphologically suggesting Luz. Transplant ID recommended starting Antifungal - Fluconazole 200 mg (end date 06/20/2020) #ESRD on iHD Patient dialyzes on , , , , at home with AVF in LUE. . Not eligible for transplant due to BMI >40. - On admission CBC, renal, Mg - BUN 88, K 5.5 - EKG without changes, no AMS - Nephrology consult for dialysis continuatio - on 06/01 Patient went for unsuccessful dialysis with reported clots coming from AVF - IR declot 06/02 w/plan to dialyze afterwards, Could not tolerate full run of iHD d/t fistula issues - US fistula 06/03 patent fistula. - if patient chose to d\c home, he can transition to 3 days a week dialysis schedule, which will give more options when choosing home abx selection. #SAL Cirrhosis s/p liver transplant 2017 No acute decompensation. Patient follows with Dr. Ordoñez, last seen 12/2019. Previously on tacrolimus for IS but experienced AMS so switched to cyclosporine 50 mg BID and cellcept 250 mg BID - hepatic function panel, PT-INR, renal panel - liver consult : recomended stopping Cellcept, restarting home Cyclosporine 50 mg BID - lifelong entecavir 0.5 mg weekly due to high risk donor (HBV ALEXANDRA +, HCV Ab+, ALEXANDRA negative) - Continue to hold Cellcept. - Restart Cyclosporine 50 mg BID 05/29, on 06/05 dose changed to 50 mg in the AM and 75 mg in the PM due to drug undetectable levels. On 06/07 dose increased to 75 mg BID due to drug undetectable levels. MELD-Na score: 23 at 06/07/2020 7:27 AM Calculated from: Serum Creatinine: 10.02 mg/dL (Rounded to 4 mg/dL) at 06/07/2020 7:27 AM Serum Sodium: 139 mmol/L (Rounded to 137 mmol/L) at 06/07/2020 7:27 AM Total Bilirubin: 0.4 mg/dL (Rounded to 1 mg/dL) at 06/07/2020 7:27 AM INR(ratio): 1.3 at 06/05/2020 12:00 PM Age: 45 years #Type 2 Diabetes Mellitus Home regimen humalin 48u qAM, 24u nightly. Last HgA1c 6.9% 01/27/2020. - LDSSI - gabapentin and tegretol for neuropathy ?? #GERD - Continue home famotidine ?? #HTN On hydralazine TID, clonidine as needed on dialysis day, nifedipine BID, doxazosin at night - Restarted home hydralazine, nifedipine - hytrin (therapeutic interchange for doxazosin) ?? #Pulmonary Hypertension On echo 07/2019 - PAP estimated to be 50 mmg Hg, likely due to JC/OHS. - avoid hypoxia, NC as needed - appears euvolemic on exam ?? #JC - BiPAP at night ?? Nutrition: Diet Orders Diet consistent carb 60-75g/meal; renal starting at 06/03 1003 Code Status: Full Code Signed: JAY DAY MD 06/07/2020, 1:41 PM Cosigned by Aby Cavazos MD at 06/07/2020 2:54 PM EDT Associated attestation - Aby Cavazos MD - 06/07/2020 2:54 PM EDT INTERNAL MEDICINE ATTENDING PHYSICIAN ATTESTATION Leoncio Rollins Jr. was seen today on rounds with the team. I personally interviewed and examined the patient. I reviewed the documentation by the resident or medical student and agree as documented, except for additional comments or corrections listed below. Assessment and plan Plan for discharge to [place] tomorrow. Aby Cavazos MD Clinical Instructor Department of Internal Medicine 06/07/2020 2:54 PM * Erika Buenrostro, DarrianD - 06/07/2020 12:20 PM EDT Transplant Pharmacy Note Transplant pharmacy is following Leoncio Rollins Jr. during hospital admission and will perform the following activities related to transplant pharmacotherapy: 1. Ensure appropriate management and titration of immunosuppressive, prophylactic, and other supportive care medications; 2. Monitor for any adverse drug effects; 3. Review the patient's medication profile for any potential drug interaction. For issues not related to transplantation, please contact the clinical pharmacist assigned to the primary service. Harish Buenrostro PharmD Transplant Stud Setter [phone] Cosigned by Karli Bowser PharmD at 06/09/2020 12:00 PM EDT Associated attestation - Karli Bowser PharmD - 06/09/2020 12:00 PM EDT I agree with the plan of care as outlined below by the resident/fellow, and will oversee and assistin the transplant-related pharmaceutical care of the patient as needed. Karli Bowser PharmUbaldoD. Clinical Lute Packer Or Applier, Solid Organ Transplant Contact: Chalkboard Clinical Pharmacist mortgage loan computation clerk pager [phone] * Orly Uriostegui PharmD - 06/07/2020 12:10 PM EDT Images from the original note were not included. [facility] Clinical Pharmacy Service: Vancomycin Monitoring Consult Leoncio Rollins Jr. is a 45 y.o. male currently being treated for possible spinal osteo Patient is allergic to codeine sulfate and codeine. Pharmacy consulted for vancomycin management by Dr. Galvez. Current Anti-Infectives Dose Frequency Start End entecavir (BARACLUDE) tablet 0.5 mg 0.5 mg Every 7 days 06/02/2020 Admin Instructions: ADMINISTER ON EMPTY STOMACH (2 HOURS BEFORE OR AFTER MEALS).LEVEL 2 HAZARDOUS MEDICATION Route: Oral vancomycin (VANCOCIN) 1,000 mg in sodium chloride 0.9% 250 mL ADDaptor IVPB 1,000 mg Once 06/07/2020 06/08/2020 Admin Instructions: Please give dose after dialysisUse ADDaptor product - Mix Thoroughly Before Administration Route: Intravenous vancomycin intermittent/pulse dosing PLACEHOLDER ORDER Use as directed PRN 05/28/2020 Admin Instructions: Patient is receiving intermittent/pulse vancomycin dosing based on random serumlevels. NOTE:This is NOT an active medication order. If a dose of vancomycin is needed, it must be entered as a one-time dose by physicians or pharmacists. Route: Intravenous documented within (last 72 hours) Date/Time Action Medication Dose Rate 06/05/20 1542 New Bag vancomycin (VANCOCIN) 1,000 mg in sodium chloride 0.9% 250 mL ADDaptor IVPB 1,000 mg 250 mL/hr --Objective Data-- Vitals: 06/06/20 2205 06/07/20 0437 06/07/20 0745 06/07/20 1054 BP: 124/80 134/73 154/78 Pulse: 95 102 102 92 Resp: 18 18 Temp: 98 ??F (36.7 ??C) 97.6 ??F (36.4 ??C) TempSrc: Oral Oral SpO2: 99% 92% 92% Weight: (!) 251 lb 15.8 oz (114.3 kg) Height: I/O last 3 completed shifts: In: 1920 [P.O.:1920] Out: 200 [Urine:200] WBC, BUN, Creatinine (Last 7 days) WBC BUN Creatinine 5.3 10E3/uL 06/07/20 0727 44 mg/dL 06/07/20 0727 10.02 mg/dL 06/07/20 0727 5.3 10E3/uL 06/05/20 1200 36 mg/dL 06/06/20 0620 8.28 mg/dL 06/06/20 0620 4.4 10E3/uL 06/04/20 0657 28 mg/dL 06/05/20 1200 6.92 mg/dL 06/05/20 1200 [place] body weight: 66.1 kg (145 lb 11.6 oz) Adjusted ideal body weight: 85.4 kg (188 lb 3.7 oz) ESRD on HD --Cultures-- Microbiology Results Date and Time Order Name Sensitivity Status Organisms Specimen ID Source 06/03/2020 0831 Anaerobic culture Preliminary [id number] Back 06/03/2020 0831 Routine Culture plus Stain Final [id number] Back 05/28/2020 1541 #1 Blood culture-Peripheral Final [id number] Peripheral 05/28/2020 1404 #2 Blood culture-Peripheral Final [id number] Peripheral --Vancomycin Concentrations-- Lab Results (Last 7 days) Vanc Rdm Vanc Tr 15.5 ug/mL 06/07/20 0727 17.7 ug/mL 06/01/20 0517 17.5 ug/mL 06/05/20 1200 25.2 ug/mL 06/04/20 0657 --Assessment and Plan-- ?? Patient is a 45 y.o. male being treated with vancomycin for possible spinal osteo. ?? Random vancomycin level 15.5 mg/L this AM. Will give 1000 mg x 1 after HD today. It appears [id number] mg post HD will be a good vancomycin regimen for him. ?? Goal vancomycin trough of 15-20 mg/L ?? Will check vancomycin serum concentration prior to next dose. ?? Pharmacy will continue to monitor therapy for efficacy and toxicity. Thank you for the consult. Orly Uriostegui PharmD Hematology/Oncology Clinical [employer] Clinical Pharmacy On-Call Pager: 06/07/2020 12:10 PM * Kimber Alcantar MD - 06/06/2020 1:01 PM EDT Transplant Nephrology Consult Follow Up Note Assessment/Plan: - ESRD on home HD 5 days/week. - will keep MWF schedule while inpatient - hemodynamically stable, labs & volume status acceptable - Anemia - on Epo - LUE US showing >50% stenosis SAL Cirrhosis s/p OLT in 2018 - MMF being held due to Osteomyelitis - on Cyclosporine Recommendations: - HD today, will switch to MWF schedule starting next week. KIMBER ALCANTAR MD PGY4 Nephrology Fellow 06/06/2020 Discussed with Consult Staff Reason for Renal Consult : ESRD HPI Patient ESRD on HD at home ([facility]), SAL cirrhosis s/p liver transplant 2018,??pulmonary HTN, JC, DM2, HTN, obesity admitted with complaint of subacute low back pain and weakness following spinalsurgery. ?? Patient underwent spinal surgery (lumbar laminectomy, discectomy and posterior decompression at L4-L5) at [facility] 04/29. Patient is having worsening back paina [facility] concerning for L5-S1 discitis and osteomyelitis with abnormal soft tissue and fluid density of posterior paraspinous tissues L3- S1 with apparent extension into the central canal at L5, suspicious for soft tissue infection. Interval History: - comfortable in bed, no complaints. - unchanged from yesterday PHYSICAL EXAM Temp: [98.2 ??F (36.8 ??C)-98.8 ??F (37.1 ??C)] 98.2 ??F (36.8 ??C) Heart Rate: [90-120] 90 Resp: [18] 18 BP: (130-165)/(74-86) 130/74 Wt Readings from Last 3 Encounters: 06/03/20 (!) 254 lb 3.2 oz (115.3 kg) 03/16/20 (!) 278 lb (126.1 kg) 03/12/20 (!) 278 lb (126.1 kg) Intake/Output Summary (Last 24 hours) at 06/06/2020 1301 Last data filed at 06/06/2020 1213 Gross per 24 hour Intake 720 ml Output 0 ml Net 720 ml General appearance: NAD Head: Normocephalic, atraumatic Mouth: moist mucus membranes Neck: Supple Lungs: diminished in the bases Heart: regular rate and rhythm Abdomen: soft, non-tender non-distended Extremities: trace LE edema Skin: No rashes MEDS Scheduled Meds: ??? acetaminophen 975 mg Oral Q6H ??? carBAMazepine 200 mg Oral Nightly (2099) ??? cycloSPORINE modified 50 mg Oral QAM ??? cycloSPORINE modified 75 mg Oral Nightly (2099) ??? entecavir 0.5 mg Oral Q7 Days ??? epoetin giancarlo-epbx 6,000 Units Subcutaneous Once per day on Mon ??? gabapentin 200 mg Oral Nightly (2099) ??? heparin 5,000 Units Subcutaneous 3 times per day ??? hydrALAZINE 100 mg Oral 3 times per day ??? insulin lispro 0-5 Units Subcutaneous TID AC ??? lidocaine 1 patch Transdermal Q24H ??? melatonin 3 mg Oral Nightly (2099) ??? methocarbamoL 500 mg Oral QID ??? metoprolol tartrate 25 mg Oral BID ??? NIFEdipine 90 mg Oral BID ??? oxyCODONE 10 mg Oral Once ??? pantoprazole 40 mg Oral DAILY 0600 ??? polyethylene glycol 17 g Oral BID ??? quetiapine 12.5 mg Oral Nightly (2099) ??? senna-docusate 2 tablet Oral Nightly (2099) ??? terazosin 10 mg Oral Nightly (2099) Continuous Infusions: PRN Meds:.ALPRAZolam, dextrose 50 % in water (D50W) OR dextrose 50 % in water (D50W), glucose, HYDROmorphone, ondansetron, proMETHazine, vancomycin intermittent/pulse dosing PLACEHOLDER ORDER DATA : Date 06/05/20 07 - 06/06/20 0606/06/20699 - 06/07/20 0659 Shift 6432-8658 2614-3765 0448-8882 24 Hour Total 9367-6382 0674-0010 0178-9848 24 Hour Total INTAKE P.O. 240 240 480 480 480 P.O. 240 240 480 480 480 Shift Total(mL/kg) 240(2.1) 240(2.1) 480(4.2) 480(4.2) 480(4.2) OUTPUT Urine(mL/kg/hr) 0 0 Urine 0 0 Urine Occurrence 1 x 0 x 1 x Emesis/NG output 0 0 Emesis 0 0 Stool 0 0 Stool Occurrence 1 x 0 x 1 x 2 x 1 x 1 x Stool 0 0 Shift Total(mL/kg) 0(0) 0(0) Weight (kg) 115.3 115.3 115.3 115.3 115.3 115.3 115.3 115.3 Recent Labs 06/04/20 0657 06/05/20 1200 WBC 4.4 5.3 HGB 7.1* 7.4* HCT 21.2* 22.1* PLT 272 281 Recent Labs 06/04/20 0657 06/05/20 1200 06/06/20 0620 NA 137 139 140 K 4.8 4.4 4.2 CL 97* 100 101 CO2 25 28 27 BUN 64* 28* 36* CREATININE 11.88* 6.92* 8.28* GLUCOSE 148* 170* 119* Lab Results Component Value Date CREATININE 8.28 (H) 06/06/2020 BUN 36 (H) 06/06/2020 NA 140 06/06/2020 K 4.2 06/06/2020 CL 101 06/06/2020 CO2 27 06/06/2020 Lab Results Component Value Date PTH 164.0 (H) 01/14/2019 CALCIUM 9.0 06/06/2020 PHOS 4.9 (H) 06/06/2020 Lab Results Component Value Date CHHJ90Z 15.8 (L) 01/14/2019 Lab Results Component Value Date WBC 5.3 06/05/2020 HGB 7.4 (L) 06/05/2020 HCT 22.1 (L) 06/05/2020 MCV 90.9 06/05/2020 PLT 281 06/05/2020 Lab Results Component Value Date IRON 19 [...] evaluation and management of the patient on 06/06/2020. Cosigned by Rajwinder Polanco at 06/07/2020 12:19 PM EDT Associated attestation - Rajwinder Polanco - 06/07/2020 12:19 PM EDT I saw and evaluated the patient, and discussed with the resident on 06/06/2020. I agree with the resident???s findings and plan as documented in the resident???s note. * Jay Day MD - 06/06/2020 12:40 PM EDT Department of Internal Medicine Daily Progress Note Chief Complaint / Reason for Follow-Up Leoncio Rollins Jr. is a 45 y.o. male with a history of ESRD on HD at home ([facility]), SAL cirrhosis s/p liver transplant 2018, pulmonary HTN, JC, DM2, HTN, obesity presenting to the hospital as direct admission with complaint of subacute low back pain and weakness following spinal surgery. Interval History / Subjective - Leg pain is better than yesterday. Reports that he lost his IV access yesterday night and no one came to install a new one which made him miss his pain meds. Also feels frustrated because he wantedto talk to us and the renal fellow yesterday afternoon in the presence of his but no one showed up. We apologized as we were not informed. - He is agreeable to leave to a [facility] facility. - He was able to sit at the side of the bed when were there. Review of Systems (Focused) Review of Systems Constitutional: Negative for chills and fever. Respiratory: Negative for cough and shortness of breath. Cardiovascular: Negative for chest pain. Musculoskeletal: Positive for back pain. +leg pain Medications Scheduled Meds: ??? acetaminophen 975 mg Oral Q6H ??? carBAMazepine 200 mg Oral Nightly (2099) ??? cycloSPORINE modified 50 mg Oral QAM ??? cycloSPORINE modified 75 mg Oral Nightly (2099) ??? entecavir 0.5 mg Oral Q7 Days ??? epoetin giancarlo-epbx 6,000 Units Subcutaneous Once per day on Mon ??? gabapentin 200 mg Oral Nightly (2099) ??? heparin 5,000 Units Subcutaneous 3 times per day ??? hydrALAZINE 100 mg Oral 3 times per day ??? insulin lispro 0-5 Units Subcutaneous TID AC ??? lidocaine 1 patch Transdermal Q24H ??? melatonin 3 mg Oral Nightly (2099) ??? methocarbamoL 500 mg Oral QID ??? metoprolol tartrate 25 mg Oral BID ??? NIFEdipine 90 mg Oral BID ??? oxyCODONE 10 mg Oral Once ??? pantoprazole 40 mg Oral DAILY 0600 ??? polyethylene glycol 17 g Oral BID ??? quetiapine 12.5 mg Oral Nightly (2099) ??? senna-docusate 2 tablet Oral Nightly (2099) ??? terazosin 10 mg Oral Nightly (2099) Continuous Infusions: PRN Meds: ALPRAZolam, dextrose 50 % in water (D50W) OR dextrose 50 % in water (D50W), glucose, HYDROmorphone, ondansetron, proMETHazine, vancomycin intermittent/pulse dosing PLACEHOLDER ORDER Vital Signs Temp: [98.2 ??F (36.8 ??C)-98.8 ??F (37.1 ??C)] 98.2 ??F (36.8 ??C) Heart Rate: [90-120] 90 Resp: [18] 18 BP: (130-165)/(74-86) 130/74 Intake/Output Summary (Last 24 hours) at 06/06/2020 1250 Last data filed at 06/06/2020 1213 Gross per 24 hour Intake 720 ml Output 0 ml Net 720 ml Physical Exam Vital signs reviewed. General: Age appropriate male, in no acute distress Heart: Regular rate and rhythm, no murmurs, rubs, gallops Lungs: Clear to auscultation bilaterally, no wheezes or rales, normal work of breathing Abdomen: Soft, obese, non-tender, non-distended, scar present from prior liver transplant Extremities: No clubbing, no edema, AVF present on L UE for dialysis, localized swelling felt behind the left knee. Skin: No rashes, no jaundice Neuro: AOx4, moves all 4 extremities, Strength decreased/limited due to pain at L hip, normal sensation of lower extremities, follows commands Psych: Alert and appropriate, normal affect Laboratory Data CBC 06/05/2020 \ 7.4 / 5.3 \ / 281 / \ / 22.1 \ Differential 06/05/2020 N 72.5 L 14.4 M 9.9 E 3.0 B 0.2 Renal 06/06/2020 140 101 36 / ___ __ / 119 \ 4.2 27 8.28 \ Ca 9.0 (06/06/2020) Mg 2.0 (06/05/2020) Phos 4.9 (06/06/2020) Lipids Lab Results Component Value Date CHOLTOT 236 (H) 01/27/2020 TRIG 303 (H) 01/27/2020 HDL 32 (L) 01/27/2020 LDL 143 01/27/2020 LFTs 06/05/2020 \ 0.4 / \ 0.09 / 10 \ / 7 / \ / 60 \ PT/INR/PTT - 06/05/2020 PT 16.8 INR 1.3 PTT 28.6 Lab Results Component Value Date TSH 3.59 01/27/2020 FREET4 1.03 10/20/2017 Lab 06/06/20 0951 06/05/20 2058 06/05/20 1442 06/05/20 0839 POC GLU MONITORING DEVICE 122* 115* 164* 124* Diagnostic Studies VASC Venous Duplex Lower Extremity Bilateral Final Result Duplex Scan Hemodialysis Access Final Result X-ray Comparison Images Final Result MRI Lumbar spine WO contrast Final Result IMPRESSION: 1. Transitional anatomy is noted at [...] a small postoperative seroma versus an abscess. Report Verified by: Leanna Wilks MD at 05/30/2020 9:05 PM EDT X-ray Chest PA or AP Final Result IMPRESSION: No acute cardiopulmonary abnormality. Report Verified by: Manolo Rosenthal MD at 05/29/2020 4:46 PM EDT X-ray Comparison Images Final Result X-ray Comparison Images Final Result X-ray Comparison Images Final Result CT Lumbar WO at OSH: - postoperative changes realted to posterior decompressive resection at L5 - Findings suspicious for L5-S1 discitis and osteomyelitis. - Abnormal soft tissue and fluid density in posterior paraspinous tissues at L3- S1 with apparent extension into the central canal at L5 level, suspicious for soft tissue infection ?? Assessment & Plan Leoncio Rollins Jr. is a 45 y.o. male being admitted to the hospital for concern for osteomyelitis. Medical problems being addressed in this encounter include the following: ?? Principal Problem: Osteomyelitis (CMS Dx) Active Problems: Liver transplant recipient (CMS Dx) ?? #Osteomyelitis Patient with recent spinal surgery now with back pain, difficulty walking and imaging findings concerning for osteomyelitis and soft tissue infection. Patient neurologically in tact. Patient receivedone dose of vanc and zosyn at OSH. - vancomycin, cefepime to cover empirically - MRI WO Spine: osteomyelitis discitis again noted at L4-L5 with a moderate- sized epidural abscess,compressing the distal thecal sac. - Transplant ID consult, recommend to continue IV vanco + cefepime, Cefepime was stopped on 06/06, and Vanc to be continued for 8 w - spine surgery consult : No surgical intervention, recommend complete course of IV Abx unless patient develops acute neurologic red flag - blood cultures x2 : NG after 5 days - follow-up blood cultures at OSH - NG after 5 days - Dilaudid 0.5 Q6h PRN for pain, leg pain not improved, Pain management was consulted 06/03, Scheduled Tylenol 975 mg q6h, and robaxin was added. - Went to IR for CT guided fluid aspiration 06/03 -- 12 mL of purulent fluid were aspirated and sent for culture,to guide antibiotics regimen: NGTD - US duplex of the left leg : no DVT #Upper GI Bleed #Anemia of Chronic disease Patient had an episode of black emesis on 05/28. Hb 7.3 down of 7.9 on admission. He was started onIV PPI and transitioned to PO after EGD. -S\p EGD which showed large amount of coffee ground fluid in stomach and circumferential adenomatous mass-like lesion in the distal esophagus at the GE junction.No e/o active bleeding. Biopsy : Squamocolumnar junctional mucosa with severe acute and chronic active inflammation, associated with prominent foveolar hyperplasia.No evidence of intestinal metaplasia, dysplasia, or malignancy.GMS stain for fungi and immunostain for CMV pending. - patient Hb after iHD was found to be 6.2 so 2 unit of pRBC was transfused with improvement to 7.8 - Trend Hb, transfuse if <7 #ESRD on iHD Patient dialyzes on , , , , at home with AVF in LUE. . Not eligible for transplant due to BMI >40. - On admission CBC, renal, Mg - BUN 88, K 5.5 - EKG without changes, no AMS - Nephrology consult for dialysis continuatio - on 06/01 Patient went for unsuccessful dialysis with reported clots coming from AVF - IR declot 06/02 w/plan to dialyze afterwards, Could not tolerate full run of iHD d/t fistula issues - US fistula 06/03 patent fistula. - if patient chose to d\c home, he can transition to 3 days a week dialysis schedule, which will give more options when choosing home abx selection. #SAL Cirrhosis s/p liver transplant 2017 No acute decompensation. Patient follows with Dr. Ordoñez, last seen 12/2019. Previously on tacrolimus for IS but experienced AMS so switched to cyclosporine 50 mg BID and cellcept 250 mg BID - hepatic function panel, PT-INR, renal panel - liver consult : recomended stopping Cellcept, restarting home Cyclosporine 50 mg BID - lifelong entecavir 0.5 mg weekly due to high risk donor (HBV ALEXANDRA +, HCV Ab+, ALEXANDRA negative) - Continue to hold Cellcept. - Restart Cyclosporine 50 mg BID 05/29, on 06/05 dose changed to 50 mg in the AM and 75 mg in the PM due to drug undetectable levels MELD-Na score: 23 at 06/06/2020 6:20 AM Calculated from: Serum Creatinine: 8.28 mg/dL (Rounded to 4 mg/dL) at 06/06/2020 6:20 AM Serum Sodium: 140 mmol/L (Rounded to 137 mmol/L) at 06/06/2020 6:20 AM Total Bilirubin: 0.4 mg/dL (Rounded to 1 mg/dL) at 06/05/2020 12:00 PM INR(ratio): 1.3 at 06/05/2020 12:00 PM Age: 45 years #Type 2 Diabetes Mellitus Home regimen humalin 48u qAM, 24u nightly. Last HgA1c 6.9% 01/27/2020. - LDSSI - gabapentin and tegretol for neuropathy ?? #GERD - Continue home famotidine ?? #HTN On hydralazine TID, clonidine as needed on dialysis day, nifedipine BID, doxazosin at night - Restarted home hydralazine, nifedipine - hytrin (therapeutic interchange for doxazosin) ?? #Pulmonary Hypertension On echo 07/2019 - PAP estimated to be 50 mmg Hg, likely due to JC/OHS. - avoid hypoxia, NC as needed - appears euvolemic on exam ?? #JC - BiPAP at night ?? Nutrition: Diet Orders Diet consistent carb 60-75g/meal; renal starting at 06/03 1003 Code Status: Full Code Signed: JAY DAY MD 06/06/2020, 12:50 PM Cosigned by Aby Cavazos MD at 06/06/2020 3:35 PM EDT Associated attestation - bAy Cavazos MD - 06/06/2020 3:35 PM EDT INTERNAL MEDICINE ATTENDING PHYSICIAN ATTESTATION Leoncio Rollins Jr. was seen today on rounds with the team. I personally interviewed and examined the patient. I reviewed the documentation by the resident or medical student and agree as documented, except for additional comments or corrections listed below. Assessment and plan Stopped IV cefepime. Plan to treat with IV vancomycin for 8 weeks. Agreeable to discharge to [facility] with MWF HD. Anticipate will be medically ready Monday. Aby Cavazos MD Clinical Instructor Department of Internal Medicine 06/06/2020 3:33 PM * Dave Dave MD - 06/06/2020 12:09 PM EDT Images from the original note were not included. INFECTIOUS DISEASE PROGRESS NOTE 06/06/2020 12:09 PM Leoncio Rollins Jr. is a 45 y.o. male patient. Hospital Day: 9 Chief Complaint/Reason for Follow-up: RODNEY epidural abscess and diskitis at L5 in liver xplant recipient Subjective: Still with back and leg pain. He is upset that he is still without IV access. Not getting vancomycin dose ordered. Review of Systems Constitutional: Negative for chills, diaphoresis, fatigue and fever. Respiratory: Negative for cough and shortness of breath. Cardiovascular: Negative for leg swelling. Gastrointestinal: Negative for abdominal pain, diarrhea, nausea and vomiting. Musculoskeletal: Positive for back pain and gait problem. L leg weakness Skin: Negative for rash. Neurological: Positive for weakness. Objective: Vital signs: Vitals: 06/06/20 0846 BP: 165/86 Pulse: 109 Resp: 18 Temp: 98.2 ??F (36.8 ??C) SpO2: 95% Temp last 24 hours:Temp (24hrs), Av.5 ??F (36.9 ??C), Min:98.2 ??F (36.8 ??C), Max:98.8 ??F (37.1 ??C) Scheduled Meds: ??? acetaminophen 975 mg Oral Q6H ??? carBAMazepine 200 mg Oral Nightly (2099) ??? ceFEPime (MAXIPIME) IV extended infusion 1 g Intravenous Q24H ??? cycloSPORINE modified 50 mg Oral QAM ??? cycloSPORINE modified 75 mg Oral Nightly (2099) ??? entecavir 0.5 mg Oral Q7 Days ??? epoetin giancarlo-epbx 6,000 Units Subcutaneous Once per day on Mon ??? gabapentin 200 mg Oral Nightly (2099) ??? heparin 5,000 Units Subcutaneous 3 times per day ??? hydrALAZINE 100 mg Oral 3 times per day ??? insulin lispro 0-5 Units Subcutaneous TID AC ??? lidocaine 1 patch Transdermal Q24H ??? melatonin 3 mg Oral Nightly (2099) ??? methocarbamoL 500 mg Oral QID ??? metoprolol tartrate 25 mg Oral BID ??? NIFEdipine 90 mg Oral BID ??? pantoprazole 40 mg Oral DAILY 06 ??? polyethylene glycol 17 g Oral BID ??? quetiapine 12.5 mg Oral Nightly (2099) ??? senna-docusate 2 tablet Oral Nightly (2099) ??? terazosin 10 mg Oral Nightly (2099) Continuous Infusions: PRN Meds:ALPRAZolam, dextrose 50 % in water (D50W) OR dextrose 50 % in water (D50W), glucose, HYDROmorphone, ondansetron, proMETHazine, vancomycin intermittent/pulse dosing PLACEHOLDER ORDER Intake/Output last 3 shifts: Date 06/05/20 07 - 06/06/20 0606/06/20 0700 - 06/07/20 0659 Shift 3540-6665 9067-3492 6070-9232 24 Hour Total 5904-4872 2814-2671 1017-2432 24 Hour Total INTAKE P.O. 240 240 480 240 240 P.O. 240 240 480 240 240 Shift Total(mL/kg) 240(2.1) 240(2.1) 480(4.2) 240(2.1) 240(2.1) OUTPUT Urine(mL/kg/hr) 0 0 Urine 0 0 Urine Occurrence 1 x 0 x 1 x Emesis/NG output 0 0 Emesis 0 0 Stool 0 0 Stool Occurrence 1 x 0 x 1 x 2 x 1 x 1 x Stool 0 0 Shift Total(mL/kg) 0(0) 0(0) Weight (kg) 115.3 115.3 115.3 115.3 115.3 115.3 115.3 115.3 Physical Exam Vitals signs and nursing note reviewed. Constitutional: General: He is not in acute distress. Appearance: He is obese. He is ill-appearing. He is not diaphoretic. Cardiovascular: Rate and Rhythm: Regular rhythm. Tachycardia present. Heart sounds: Murmur (systolic) present. Pulmonary: Effort: Pulmonary effort is normal. Abdominal: Tenderness: There is no right CVA tenderness or left CVA tenderness. Musculoskeletal: Right lower leg: No edema. Left lower leg: No edema. Comments: Band of tenderness across lower lumbar area. Skin: General: Skin is warm and dry. Findings: No rash. Comments: L forearm AV fistula Neurological: Mental Status: He is alert. Labs: Lab 06/05/20 1200 WBC 5.3 HEMOGLOBIN 7.4* HEMATOCRIT 22.1* MEAN CORPUSCULAR VOLUME 90.9 PLATELETS 281 Lab 06/06/20 0620 06/05/20 1200 SODIUM 140 139 POTASSIUM 4.2 4.4 CHLORIDE 101 100 CO2 27 28 BUN 36* 28* CREATININE 8.28* 6.92* GLUCOSE 119* 170* CALCIUM 9.0 9.2 MAGNESIUM -- 2.0 PHOSPHORUS 4.9* 4.5 Lab 06/05/20 1200 ALK PHOS 60 AST 10* ALT 7 BILIRUBIN TOTAL 0.4 BILIRUBIN DIRECT 0.09 Lab 06/05/20 1200 PROTHROMBIN TIME 16.8* INR 1.3* Results for LEONCIO ROLLINS JR. ( ) as of 06/01/2020 16:30 Ref. Range 05/28/2020 15:41 05/30/2020 12:06 06/01/2020 05:17 Vancomycin Random Latest Units: ug/mL 16.3 22.9 Vancomycin Tr Latest Ref Range: 10.0 - 20.0 ug/mL 17.7 Microbiology Results Date and Time Order Name Sensitivity Status Organisms Specimen ID Source 06/03/2020 0831 Anaerobic culture Preliminary [id number] Back 06/03/2020 0831 Routine Culture plus Stain Final [id number] Back 05/28/2020 1541 #1 Blood culture-Peripheral Final [id number] Peripheral 05/28/2020 1404 #2 Blood culture-Peripheral Final [id number] Peripheral Assessment/Plan: Principal Problem: Osteomyelitis ([facility] Dx) Active Problems: Esophagitis Liver transplanted ([facility] Dx) Liver transplant recipient ([facility] Dx) Immunosuppression ([facility] Dx) History of liver transplant ([facility] Dx) ESRD (end stage renal disease) ([facility] Dx) Anemia, unspecified Leoncio Rollins is a 45 y.o. male with a history of DM2, JC, PAH, and SAL cirrhosis s/p OLT inFebruary 2018 - donor HBV+ and HCV Ab +. On cellcept + cyclosporine (AMS on tacro) + entecavir. Developed LBP in early April followed by fever - found to have L5 discities with epidural abscess s/p L4-L5 laminectomy/discectomy 04/29/20. Cultures positive for MRSE. Treated with vancomycin inpatient until 05/13/20 then vancomycin with HD. Has not been out of bed since going home and insurance will no longer pain for ambulance to HD. Has been on doxycycline PO and linezolid since 05/26/20. Presented [facility] with worsening back pain and had CT lumbar spine concerning for L5-S1 discitis and OM with abnormal soft tissue and fluid density of posterior paraspinous L3-S1 tissues with extension into central canal at L5. Transferred to [facility] on 05/28/20. 1) Disicitis/ OM - S/p IR aspirate 06/03 - gram stain with GPCs in pairs but no growth. Likely osteomyelitis is secondary to previously identified MRSE without new organism. ?? Continue IV vancomycin. ?? DC cefepime ?? Would plan for at least 8 weeks of IV therapy ?? Will need monitoring with at least weekly CBC, diff, renal, ESR, CRP. Please repeat CRP on Friday 06/08. ?? If he goes to [facility], would consult ID there for follow-up Will continue to follow. Dave Dave MD 06/06/2020 cell [phone] pager The HPI, ROS, physical exam, test results, and assessment & plan were reviewed and copied forward (with edits) from a note written by me on 06/02/20. I have reviewed and updated the history, physical exam, data, assessment, and plan of the note so that it reflects my evaluation and management of the patient. * Cecelia Woamck, PharmD - 06/05/2020 2:53 PM EDT Images from the original note were not included. [facility] Clinical Pharmacy Service: Vancomycin Monitoring Consult Leoncio Rollins is a 45 y.o. male currently being treated for possible spinal osteo Patient is allergic to codeine sulfate and codeine. Pharmacy consulted for vancomycin management by Dr. Galvez. Current Anti-Infectives Dose Frequency Start End cefepime (MAXIPIME) 1 g in sodium chloride 0.9% 50 mL IVPB ADDaptor 1 g Every 24 hours 06/02/2020 Admin Instructions: For Hemodialysis patients - on dialysis days, please administer Cefepime dose after completion of hemodialysis.Use ADDaptor product - Mix Thoroughly Before Administration Route: Intravenous entecavir (BARACLUDE) tablet 0.5 mg 0.5 mg Every 7 days 06/02/2020 Admin Instructions: ADMINISTER ON EMPTY STOMACH (2 HOURS BEFORE OR AFTER MEALS).LEVEL 2 HAZARDOUS MEDICATION Route: Oral vancomycin (VANCOCIN) 1,000 mg in sodium chloride 0.9% 250 mL ADDaptor IVPB 1,000 mg Once 06/05/2020 06/06/2020 Admin Instructions: Use ADDaptor product - Mix Thoroughly Before Administration Route: Intravenous vancomycin intermittent/pulse dosing PLACEHOLDER ORDER Use as directed PRN 05/28/2020 Admin Instructions: Patient is receiving intermittent/pulse vancomycin dosing based on random serumlevels. NOTE:This is NOT an active medication order. If a dose of vancomycin is needed, it must be entered as a one-time dose by physicians or pharmacists. Route: Intravenous documented within (last 72 hours) Date/Time Action Medication Dose Rate 06/02/20 1617 Given vancomycin (VANCOCIN) 1,250 mg in sodium chloride 0.9 % 250 mL IVPB 1,250 mg 200 mL/hr --Objective Data-- Vitals: 06/05/20 0325 06/05/20 0828 06/05/20 0839 06/05/20 1249 BP: 141/83 169/85 147/87 Pulse: 106 124 102 Resp: Temp: 98.5 ??F (36.9 ??C) 98.8 ??F (37.1 ??C) TempSrc: Oral Oral SpO2: 92% 92% 92% 94% Weight: Height: I/O last 3 completed shifts: In: 720 [P.O.:720] Out: 675 [Urine:50; Other:625] WBC, BUN, Creatinine (Last 7 days) WBC BUN Creatinine 5.3 10E3/uL 06/05/20 1200 28 mg/dL 06/05/20 1200 6.92 mg/dL 06/05/20 1200 4.4 10E3/uL 06/04/20 0657 64 mg/dL 06/04/20 0657 11.88 mg/dL 06/04/20 0657 6.0 10E3/uL 06/03/20 0721 56 mg/dL 06/03/20 0504 11.03 mg/dL 06/03/20 0504 [place] body weight: 66.1 kg (145 lb 11.6 oz) Adjusted ideal body weight: 85.8 kg (189 lb 1.8 oz) ESRD on HD --Cultures-- Microbiology Results Date and Time Order Name Sensitivity Status Organisms Specimen ID Source 06/03/2020 0831 Anaerobic culture Preliminary [id number] Back 06/03/2020 0831 Routine Culture plus Stain Preliminary [id number] Back 05/28/2020 1541 #1 Blood culture-Peripheral Final [id number] Peripheral 05/28/2020 1404 #2 Blood culture-Peripheral Final [id number] Peripheral --Vancomycin Concentrations-- Lab Results (Last 7 days) Vanc Rdm Vanc Tr 17.5 ug/mL 10/23/20 1200 17.7 ug/mL 06/01/20 0517 25.2 ug/mL 06/04/20 0657 29.8 ug/mL 06/03/20 0504 --Assessment and Plan-- ?? Patient is a 45 y.o. male being treated with vancomycin for possible spinal osteo. ?? Random vancomycin level 17.5 mg/L this AM after getting HD yesterday. Will give 1000 mg x 1 now.It appears that 1000 mg post HD will be a good vancomycin regimen for him. ?? Goal vancomycin trough of 15-20 mg/L ?? Will check vancomycin serum concentration Monday AM ?? Pharmacy will continue to monitor therapy for efficacy and toxicity. Thank you for the consult. Cecelia Womack PharmD, [facility] Clinical [facility] Internal Medicine/Diabetes Now Pager [phone] Office: [phone] Clinical Pharmacist On-Call Pager [phone] 06/05/2020 2:53 PM * Jay Day MD - 06/05/2020 12:38 PM EDT Department of Internal Medicine Daily Progress Note Chief Complaint / Reason for Follow-Up Leoncio Rollins Jr. is a 45 y.o. male with a history of ESRD on HD at home ([facility]), SAL cirrhosis s/p liver transplant 2017, pulmonary HTN, JC, DM2, HTN, obesity presenting to the hospital as direct admission with complaint of subacute low back pain and weakness following spinal surgery. Interval History / Subjective - Leg pain is better than yesterday. - He is agreeable to leave to a rehab facility, but would like his to be able to visit Review of Systems (Focused) Review of Systems Constitutional: Negative for chills and fever. Respiratory: Negative for cough and shortness of breath. Cardiovascular: Negative for chest pain. Musculoskeletal: +leg pain Medications Scheduled Meds: ??? acetaminophen 975 mg Oral Q6H ??? carBAMazepine 200 mg Oral Nightly (2099) ??? ceFEPime (MAXIPIME) IV extended infusion 1 g Intravenous Q24H ??? [START ON 06/06/2020] cycloSPORINE modified 50 mg Oral QAM ??? cycloSPORINE modified 75 mg Oral Nightly (2099) ??? entecavir 0.5 mg Oral Q7 Days ??? epoetin giancarlo-epbx 6,000 Units Subcutaneous Once per day on Mon ??? gabapentin 200 mg Oral Nightly (2099) ??? heparin 5,000 Units Subcutaneous 3 times per day ??? hydrALAZINE 100 mg Oral 3 times per day ??? insulin lispro 0-5 Units Subcutaneous TID AC ??? lidocaine 1 patch Transdermal Q24H ??? melatonin 3 mg Oral Nightly (2099) ??? methocarbamoL 500 mg Oral QID ??? metoprolol tartrate 25 mg Oral BID ??? NIFEdipine 90 mg Oral BID ??? pantoprazole 40 mg Oral DAILY 0600 ??? polyethylene glycol 17 g Oral BID ??? quetiapine 12.5 mg Oral Nightly (2099) ??? senna-docusate 2 tablet Oral Nightly (2099) ??? terazosin 10 mg Oral Nightly (2099) Continuous Infusions: PRN Meds: ALPRAZolam, dextrose 50 % in water (D50W) OR dextrose 50 % in water (D50W), glucose, ondansetron, proMETHazine, vancomycin intermittent/pulse dosing PLACEHOLDER ORDER Vital Signs Temp: [97.3 ??F (36.3 ??C)-98.8 ??F (37.1 ??C)] 98.8 ??F (37.1 ??C) Heart Rate: [78-124] 102 Resp: [16-18] 18 BP: (83-225)/(55-207) 147/87 Intake/Output Summary (Last 24 hours) at 06/05/2020 1439 Last data filed at 06/04/2020 1900 Gross per 24 hour Intake -- Output 625 ml Net -625 ml Physical Exam Vital signs reviewed. General: Age appropriate male, in no acute distress Heart: Regular rate and rhythm, no murmurs, rubs, gallops Lungs: Clear to auscultation bilaterally, no wheezes or rales, normal work of breathing Abdomen: Soft, obese, non-tender, non-distended, scar present from prior liver transplant Extremities: No clubbing, no edema, AVF present on L UE for dialysis, localized swelling felt behind the left knee. Skin: No rashes, no jaundice Neuro: AOx4, moves all 4 extremities, Strength decreased/limited due to pain at L hip, normal sensation of lower extremities, follows commands Psych: Alert and appropriate, normal affect Laboratory Data CBC 06/05/2020 \ 7.4 / 5.3 \ / 281 / \ / 22.1 \ Differential 06/05/2020 N 72.5 L 14.4 M 9.9 E 3.0 B 0.2 Renal 06/05/2020 139 100 28 / ___ __ / 170 \ 4.4 28 6.92 \ Ca 9.2 (06/05/2020) Mg 2.0 (06/05/2020) Phos 4.5 (06/05/2020) Lipids Lab Results Component Value Date CHOLTOT 236 (H) 01/27/2020 TRIG 303 (H) 01/27/2020 HDL 32 (L) 01/27/2020 LDL 143 01/27/2020 LFTs 06/05/2020 \ 0.4 / \ 0.09 / 10 \ / 7 / / 60 \ PT/INR/PTT - 06/05/2020 PT 16.8 INR 1.3 PTT 28.6 Lab Results Component Value Date TSH 3.59 01/27/2020 FREET4 1.03 10/20/2017 Lab 06/05/20 0839 06/04/20 2127 06/04/20 1327 06/04/20 0831 POC GLU MONITORING DEVICE 124* 138* 148* 177* Diagnostic Studies VASC Venous Duplex Lower Extremity Bilateral Final Result Duplex Scan Hemodialysis Access Final Result X-ray Comparison Images Final Result MRI Lumbar spine WO contrast Final Result IMPRESSION: 1. Transitional anatomy is noted at [...] a small postoperative seroma versus an abscess. Report Verified by: Leanna Wilks MD at 05/30/2020 9:05 PM EDT X-ray Chest PA or AP Final Result IMPRESSION: No acute cardiopulmonary abnormality. Report Verified by: Manolo Rosenthal MD at 05/29/2020 4:46 PM EDT X-ray Comparison Images Final Result X-ray Comparison Images Final Result X-ray Comparison Images Final Result CT Lumbar WO at OSH: - postoperative changes realted to posterior decompressive resection at L5 - Findings suspicious for L5-S1 discitis and osteomyelitis. - Abnormal soft tissue and fluid density in posterior paraspinous tissues at L3- S1 with apparent extension into the central canal at L5 level, suspicious for soft tissue infection ?? Assessment & Plan Leoncio Rollins Jr. is a 45 y.o. male being admitted to the hospital for concern for osteomyelitis. Medical problems being addressed in this encounter include the following: ?? Principal Problem: Osteomyelitis ([facility] Dx) Active Problems: Liver transplant recipient ([facility] Dx) ?? #Osteomyelitis Patient with recent spinal surgery now with back pain, difficulty walking and imaging findings concerning for osteomyelitis and soft tissue infection. Patient neurologically in tact. Patient receivedone dose of vanc and zosyn at OSH. - vancomycin, cefepime to cover empirically - MRI WO Spine: osteomyelitis discitis again noted at L4-L5 with a moderate- sized epidural abscess,compressing the distal thecal sac. - Transplant ID consult, recommend to continue IV vanco + cefepime - spine surgery consult : No surgical intervention, recommend complete course of IV Abx unless patient develops acute neurologic red flag - blood cultures x2 : NG after 5 days - follow-up blood cultures at OSH - NG after 5 days - Dilaudid 0.5 Q6h PRN for pain, leg pain not improved, Pain management was consulted 06/03, Scheduled Tylenol 975 mg q6h, and robaxin was added. - Went to IR for CT guided fluid aspiration 06/03 -- 12 mL of purulent fluid were aspirated and sent for culture,to guide antibiotics regimen: NGTD - US duplex of the left leg : no DVT #Upper GI Bleed #Anemia of Chronic disease Patient had an episode of black emesis on 05/28. Hb 7.3 down of 7.9 on admission. He was started onIV PPI and transitioned to PO after EGD. -S\p EGD which showed large amount of coffee ground fluid in stomach and circumferential adenomatous mass-like lesion in the distal esophagus at the GE junction.No e/o active bleeding. Biopsy : Squamocolumnar junctional mucosa with severe acute and chronic active inflammation, associated with prominent foveolar hyperplasia.No evidence of intestinal metaplasia, dysplasia, or malignancy.GMS stain for fungi and immunostain for CMV pending. - patient Hb after iHD was found to be 6.2 so 2 unit of pRBC was transfused with improvement to 7.8 - Trend Hb, transfuse if <7 #ESRD on iHD Patient dialyzes on , , , , Sa at home with AVF in LUE. . Not eligible for transplant due to BMI >40. - On admission CBC, renal, Mg - BUN 88, K 5.5 - EKG without changes, no AMS - Nephrology consult for dialysis continuatio - on 06/01 Patient went for unsuccessful dialysis with reported clots coming from AVF - IR declot 06/02 w/plan to dialyze afterwards, Could not tolerate full run of iHD d/t fistula issues - US fistula 06/03 patent fistula. - if patient chose to d\c home, he can transition to 3 days a week dialysis schedule, which will give more options when choosing home abx selection. #SAL Cirrhosis s/p liver transplant 2017 No acute decompensation. Patient follows with Dr. Ordoñez, last seen 12/2019. Previously on tacrolimus for IS but experienced AMS so switched to cyclosporine 50 mg BID and cellcept 250 mg BID - hepatic function panel, PT-INR, renal panel - liver consult : recomended stopping Cellcept, restarting home Cyclosporine 50 mg BID - lifelong entecavir 0.5 mg weekly due to high risk donor (HBV ALEXANDRA +, HCV Ab+, ALEXANDRA negative) - Continue to hold Cellcept. - Restart Cyclosporine 50 mg BID 05/29, on 06/05 dose changed to 50 mg in the AM and 75 mg in the PM due to drug undetectable levels MELD-Na score: 23 at 06/05/2020 12:00 PM Calculated from: Serum Creatinine: 6.92 mg/dL (Rounded to 4 mg/dL) at 06/05/2020 12:00 PM Serum Sodium: 139 mmol/L (Rounded to 137 mmol/L) at 06/05/2020 12:00 PM Total Bilirubin: 0.4 mg/dL (Rounded to 1 mg/dL) at 06/05/2020 12:00 PM INR(ratio): 1.3 at 06/05/2020 12:00 PM Age: 45 years #Type 2 Diabetes Mellitus Home regimen humalin 48u qAM, 24u nightly. Last HgA1c 6.9% 01/27/2020. - LDSSI - gabapentin and tegretol for neuropathy ?? #GERD - Continue home famotidine ?? #HTN On hydralazine TID, clonidine as needed on dialysis day, nifedipine BID, doxazosin at night - Restarted home hydralazine, nifedipine - hytrin (therapeutic interchange for doxazosin) ?? #Pulmonary Hypertension On echo 07/2019 - PAP estimated to be 50 mmg Hg, likely due to JC/OHS. - avoid hypoxia, NC as needed - appears euvolemic on exam ?? #JC - BiPAP at night ?? Nutrition: Diet Orders Diet consistent carb 60-75g/meal; renal starting at 06/03 1003 Code Status: Full Code Signed: JAY DAY MD 06/05/2020, 2:39 PM Cosigned by Aby Cavazos MD at 06/05/2020 5:08 PM EDT Associated attestation - Aby Cavazos MD - 06/05/2020 5:08 PM EDT INTERNAL MEDICINE ATTENDING PHYSICIAN ATTESTATION Leoncio Rollins Jr. was seen today on rounds with the team. I personally interviewed and examined the patient. I reviewed the documentation by the resident or medical student and agree as documented, except for additional comments or corrections listed below. Assessment and plan See if agreeable to discharge to [place]. Confirmed his may visit if discharged there. This willbe his best option for recovery. Aby Cavazos MD Clinical Instructor Department of Internal Medicine 06/05/2020 5:07 PM * Ivelisse Francis, OT - 06/05/2020 10:36 AM EDT Occupational Therapy Treatment Name: Leoncio Rollins Jr. : 1975 Attending Physician: Aby Cavazos MD Admission Diagnosis: POST-OP INFECTION Date: 06/05/2020 Room: 8024/U8024 Reviewed Pertinent hospital course: Yes Hospital Course PT/OT: 45 y.o. M p/w weakness and back pain. PMH of liver cirrhosis s/p OLT (2017) and recent L4-5 discectomy and posterior decompression; 05/28-05/29: coffee ground emesis; MRI L spine (05/30): persistent osteomyelitis discitis at L4-5 with moderate ventral epidural abscess with some compression, neurosx consulted with conservative mgmt, 05/28 EGD with no active bleeding Activity Level: Activity as tolerated Recommendation Recommendation: Short-term skilled OT Equipment Recommendations: Defer at this time Assessment Assessment: Decreased Safe judgment during ADL, Decreased Functional Mobility, Decreased Balance, Decreased ADL status, Decreased activity tolerance, Decreased self-care transfers Co-treatment indicated: to integrate multiple skills simultaneously in order to challenge patient and advance progress Prognosis for OT goals: Good Pt is very slowly progressing towards OT goals as evident by only sitting EOB for 45 seconds. Pt perseverates significantly on his pain level, even though he doesn't describe it. He says he is just in a lot of pain when moving. Pt requires significant education and motivation to participate in session. Pt will benefit from SNF placement, as pt is not safe to go home as he cannot perform any functional transfers or activity OOB. Pt will benefit from continue skilled OT services to maximize adl participation. Outcome Measures AM-PAC 6 Clicks Daily Activity Inpatient Short Form: OT 6 Clicks Score: 13 Cognition Overall Cognitive Status: Within Functional Limits Arousal/Alertness: Alert Orientation Level: Oriented X4 Behavior: Apprehensive Following Commands: Follows all commands and directions without difficulty(pt continues to demo self limiting behavior ) Safety Judgment: Impaired judgment Comments: Pt continues to demo decreased insight into current functional status and how this would cause limitiations at home, pt continues to state that he will function at home desipte being unableto complete any OOB mobility. Pt is redirectable to SNF d/c plan with maximal education Pain Pain Score: 0-No pain Therapist reported pain to: Pt did not verbalize pt but perseverates on how much pain he is in and how movement and sitting increases his pain. Exercises Functional Mobility Bed Mobility Rolling: Minimal assistance Supine to Sit: Moderate assistance;of 2 people Sit to Supine: Moderate assistance Functional Transfers Functional Mobility Comment: In bed trem position, pt able to use UE to scoot self to hob. pt requires frequent vc's for positioning, safety, breathing technique. Balance Sitting - Static: Stand-by assistance(pt only sat up for about 45 seconds then reporting pain in his hip and he needed to lay down) Sitting - Dynamic: Minimal Assistance ADL Lower Body Dressing: Total assistance Lower Body Dressing Deficit: Don/doff R sock;Don/doff L sock Location Assessed LE Dressing: Supine in bed Additional Comments: Pt is very limited by pain and preseverates on his pain. Pt not receptive to therapist's encouragement and education as difficult time focusing as he keeps thinking of his pain. Position after Treatment/Safety Handoff Position after therapy session: Bed in chair position Details: RN notified;Call light/ needs within reach Alarms: Bed Alarms Status: Unchanged from previous setting Goals Goals to be met in: 1 week Patient stated goal: to return to baseline/PLOF Patient will complete supine to sit in prep for ADLs: Minimal assistance Patient will complete grooming task: Will tolerate assessment Patient will complete upper body dressing: Will tolerate assessment Patient will complete lower body dressing: Maximum assistance Custodial Goal : Pt will complete a functional OOB t/f in prep for ADL tasks. residential goal to be met in: 2 weeks Collaborated with: Patient Plan Plan Treatment Interventions: ADL retraining, Activity Tolerance training, Functional transfer training,Patient/Family training, Fine motor coordination activities, Therapeutic Activity, UE strengthening/ROM, Neuro muscular reeducation, Compensatory technique education, Energy Conservation OT Frequency: minimum 3x/week The plan of care and recommendations assesses the patient's and/or caregiver's readiness, willingness, and ability to provide or support functional mobility and ADL tasks as needed upon discharge. Patient/Family Education Educated patient on the role of occupational therapy, OT goals, OT plan of care, discharge recommendation, ADL training, energy conservation techniques and no bending, lifting or twisting and fall prevention strategies including need for supervision/ assistance with OOB activity and use of call light. patient verbalized understanding and will need reinforcement. OT Time Start Time: 0948 Stop Time: 1011 Time Calculation (min): 23 min OT Charges $Therapeutic Activity: 8-22 mins $Self Care/ADL/Home Management Trainin-22 mins Ivelisse Francis OTR/L [facility] Office: [phone] Problem List Patient Active Problem List Diagnosis ??? Esophagitis ??? Essential (primary) hypertension ??? Type 2 diabetes mellitus with diabetic chronic kidney disease (CMS Dx) ??? Liver transplanted (CMS Dx) ??? Liver transplant recipient (CMS Dx) ??? Encounter for therapeutic drug level monitoring ??? Immunosuppression (CMS Dx) ??? Peripheral edema ??? Unstable angina pectoris (CMS Dx) ??? Abnormal stress test ??? History of liver transplant (CMS Dx) ??? ESRD (end stage renal disease) (CMS Dx) ??? Group C streptococcal infection ??? Cytomegaloviral disease, unspecified (CMS Dx) ??? Pre-op evaluation ??? Anemia, unspecified ??? Osteomyelitis (CMS Dx) ??? Other fatigue ??? Vitamin D deficiency, unspecified ??? Unspecified protein-calorie malnutrition (CMS Dx) ??? Sepsis (CMS Dx) ??? Secondary hyperparathyroidism of renal origin (CMS Dx) ??? Renal osteodystrophy ??? Other disorders of electrolyte and fluid balance, not elsewhere classified ??? Nausea ??? SAL (nonalcoholic steatohepatitis) ??? residential (current) use of insulin (CMS Dx) ??? Leukocytosis ??? Hyponatremia ??? Hypocalcemia ??? Epidural abscess ??? Dependence on renal dialysis (CMS Dx) ??? Disorder of phosphorus metabolism, unspecified ??? Discitis ??? Anaphylactic shock, unspecified, initial encounter ??? Altered mental state ??? Allergy, unspecified, initial encounter Past Medical History Past Medical History: Diagnosis [...] 05/29/2020 Procedure: EGD WITH BIOPSY; Surgeon: Rashid Winchester MD; Location: ENDOSCOPY; Service: Gastroenterology; Laterality: N/A; [...] PROCEDURE 10/2016 ??? TIPS Revision 04/2017 * Tanya Jackson, PT - 06/05/2020 10:26 AM EDT Physical Therapy Treatment Name: Leoncio Rollins Jr. : 1975 Attending Physician: Aby Cavazos MD Admission Diagnosis: POST-OP INFECTION Date: 06/05/2020 Room: 8024/U8024 Reviewed Pertinent hospital course: Yes Hospital Course PT/OT: 45 y.o. M p/w weakness and back pain. PMH of liver cirrhosis s/p OLT (2016) and recent L4-5 discectomy and posterior decompression; 05/28-05/29: coffee ground emesis; MRI L spine (05/30): persistent osteomyelitis discitis at L4-5 with moderate ventral epidural abscess with some compression, neurosx consulted with conservative mgmt, 05/28 EGD with no active bleeding Activity Level: Activity as tolerated Assessment Pt tolerates PT session fairly well this date, continues to require mod A for bed mobility but sitsEOB with CGA x 45 seconds. Pt initially states that he desires to return home despite OOB mobility deficits, with education pt is agreeable to SNF recommendation to improve safety and independence once pt returns home. Pt will continue to benefit from skilled therapy services to improve mobility and tolerance to movement. Recommendation Recommendation: Short-term skilled PT Equipment Recommended: Defer until further assessment Outcome Measures AM-PAC 6 Clicks Basic Mobility Inpatient Short Form: PT 6 Clicks Score: 10 Mobility Recommendations for Staff Patient ability: Requires frequent repositioning (at least every 2 hours) Cognition Overall Cognitive Status: Within Functional Limits Arousal/Alertness: Alert Orientation Level: Oriented X4 Behavior: Apprehensive Following Commands: Follows all commands and directions without difficulty(pt continues to demo self limiting behavior ) Safety Judgment: Impaired judgment Comments: Pt continues to demo decreased insight into current functional status and how this would cause limitiations at home, pt continues to state that he will function at home desipte being unableto complete any OOB mobility. Pt is redirectable to SNF d/c plan with maximal education Pain Pain Score: 0-No pain Therapist reported pain to: Pt did not verbalize pt but perseverates on how much pain he is in and how movement and sitting increases his pain. Mobility Bed Mobility Rolling: Minimal assistance;towards the left Supine to Sit: Moderate assistance;of 2 people;head of bed elevated;towards the left Sit to Supine: Minimal assistance;head of bed flat;towards the right(maximal cues required to prevent twisting motion) Transfers Sit to Stand: (pt refuses) Balance Sitting - Static: Contact Guard assistance Sitting - Dynamic: Contact Guard Assistance Standing - Static: Not Tested Standing - Dynamic: Not Tested Position after Treatment and Safety Handoff Position after therapy session: Bed in chair position Details: Call light/ needs within reach, RN notified Alarms: Bed Alarms Status: Unchanged from previous setting Goals Goals Met: None Goals to be met by: 06/12/20 Patient will transition from supine to sit: Minimal assistance(goal met and progressed 06/03) Patient will transfer from sit to stand: Will tolerate assessment Patient will ambulate: Will tolerate assessment Pt Will report pain with functional mobility at: 4/10 or less Long-term goal to be met by: 06/12/20 Custodial Goal : = STG Patient Stated Goal #1: decreased pain Patient/Family Education Educated patient on the role of physical therapy, goals, plan of care and discharge recommendationsand fall prevention strategies, including use of call light; patient verbalized understanding. Plan Plan Treatment/Interventions: LE strengthening/ROM, Patient/family training, Gait training, Continued evaluation, Therapeutic Activity PT Frequency: minimum 3x/week The plan of care and recommendations assesses the patient's and/or caregiver's readiness, willingness, and ability to provide or support functional mobility and ADL tasks as needed upon discharge. Tanya Jackson PT [id number], DPT Pager: [phone] M-F: [phone] Time Start Time: 0948 Stop Time: 1011 Time Calculation (min): 23 min Charges $Therapeutic Activity: 2 units Problem List Patient Active Problem List Diagnosis ??? Esophagitis ??? Essential (primary) hypertension ??? Type 2 diabetes mellitus with diabetic chronic kidney disease (CMS Dx) ??? Liver transplanted (CMS Dx) ??? Liver transplant recipient (CMS Dx) ??? Encounter for therapeutic drug level monitoring ??? Immunosuppression (CMS Dx) ??? Peripheral edema ??? Unstable angina pectoris (CMS Dx) ??? Abnormal stress test ??? History of liver transplant (CMS Dx) ??? ESRD (end stage renal disease) (CMS Dx) ??? Group C streptococcal infection ??? Cytomegaloviral disease, unspecified (CMS Dx) ??? Pre-op evaluation ??? Anemia, unspecified ??? Osteomyelitis (CMS Dx) ??? Other fatigue ??? Vitamin D deficiency, unspecified ??? Unspecified protein-calorie malnutrition (CMS Dx) ??? Sepsis (CMS Dx) ??? Secondary hyperparathyroidism of renal origin (CMS Dx) ??? Renal osteodystrophy ??? Other disorders of electrolyte and fluid balance, not elsewhere classified ??? Nausea ??? SAL (nonalcoholic steatohepatitis) ??? intermediate card tender (current) use of insulin (CMS Dx) ??? Leukocytosis ??? Hyponatremia ??? Hypocalcemia ??? Epidural abscess ??? Dependence on renal dialysis (CMS Dx) ??? Disorder of phosphorus metabolism, unspecified ??? Discitis ??? Anaphylactic shock, unspecified, initial encounter ??? Altered mental state ??? Allergy, unspecified, initial encounter Past Medical History Past Medical History: Diagnosis [...] 05/29/2020 Procedure: EGD WITH BIOPSY; Surgeon: Rashid Winchester MD; Location: ENDOSCOPY; Service: Gastroenterology; Laterality: N/A; [...] PROCEDURE 10/2016 ??? TIPS Revision 04/2017 * Lashell Fountain, RICARDO - 06/05/2020 12:28 AM EDT Pt refused to wear home cpap. Patient placed on 3L SPO2 92%. * Cristóbal Bautista RD - 06/04/2020 1:00 PM EDT [facility] Medical Nutrition Therapy Reason(s) for Completion: Nutrition Services Protocol-LOS Diet Order/Nutrition Support: Consistent Carbohydrate (60-75 g/meal) + Renal Pertinent Information: Leoncio Rollins Jr. is a 45 y.o. male with a history of ESRD on HD at home ([facility]), SAL cirrhosis s/p liver transplant 2017, pulmonary HTN, JC, DM2, HTN, obesity presentingto the hospital as direct admission with complaint of subacute low back pain and weakness followingspinal surgery. Pt to have HD today, 5 days/week at home, 3 days/week while admitted. He has a variable appetite, consuming 0-70% of meals documented. Last reported BM 06/03. Phos 7.6. Plan to d/c to [facility] over the weekend. Patient Active Problem List Diagnosis ??? Esophagitis ??? Essential (primary) hypertension ??? Type 2 diabetes mellitus with diabetic chronic kidney disease (CMS Dx) ??? Liver transplanted (CMS Dx) ??? Liver transplant recipient (CMS Dx) ??? Encounter for therapeutic drug level monitoring ??? Immunosuppression (CMS Dx) ??? Peripheral edema ??? Unstable angina pectoris (CMS Dx) ??? Abnormal stress test ??? History of liver transplant (CMS Dx) ??? ESRD (end stage renal disease) (CMS Dx) ??? Group C streptococcal infection ??? Cytomegaloviral disease, unspecified (CMS Dx) ??? Pre-op evaluation ??? Anemia, unspecified ??? Osteomyelitis (CMS Dx) ??? Other fatigue ??? Vitamin D deficiency, unspecified ??? Unspecified protein-calorie malnutrition (CMS Dx) ??? Sepsis (CMS Dx) ??? Secondary hyperparathyroidism of renal origin (CMS Dx) ??? Renal osteodystrophy ??? Other disorders of electrolyte and fluid balance, not elsewhere classified ??? Nausea ??? SAL (nonalcoholic steatohepatitis) ??? intermediate card tender (current) use of insulin (CMS Dx) ??? Leukocytosis ??? Hyponatremia ??? Hypocalcemia ??? Epidural abscess ??? Dependence on renal dialysis (CMS Dx) ??? Disorder of phosphorus metabolism, unspecified ??? Discitis ??? Anaphylactic shock, unspecified, initial encounter ??? Altered mental state ??? Allergy, unspecified, initial encounter Past Medical History: Diagnosis Date ??? Acute [...] ??? Sleep apnea ??? Vitamin D deficiency Scheduled Meds: ??? acetaminophen 975 mg Oral Q6H ??? carBAMazepine 200 mg Oral Nightly (2099) ??? ceFEPime (MAXIPIME) IV extended infusion 1 g Intravenous Q24H ??? cycloSPORINE modified 50 mg Oral BID ??? entecavir 0.5 mg Oral Q7 Days ??? epoetin giancarlo-epbx 6,000 Units Subcutaneous Once per day on Mon ??? gabapentin 200 mg Oral Nightly (2099) ??? heparin 5,000 Units Subcutaneous 3 times per day ??? hydrALAZINE 100 mg Oral 3 times per day ??? insulin lispro 0-5 Units Subcutaneous TID AC ??? lidocaine 1 patch Transdermal Q24H ??? melatonin 3 mg Oral Nightly (2099) ??? methocarbamoL 500 mg Oral QID ??? metoprolol tartrate 25 mg Oral BID ??? NIFEdipine 90 mg Oral BID ??? pantoprazole 40 mg Oral DAILY 0600 ??? polyethylene glycol 17 g Oral BID ??? quetiapine 12.5 mg Oral Nightly (2099) ??? senna-docusate 2 tablet Oral Nightly (2099) ??? terazosin 10 mg Oral Nightly (2099) PRN Meds:ALPRAZolam, dextrose 50 % in water (D50W) OR dextrose 50 % in water (D50W), glucose, HYDROmorphone, ondansetron, proMETHazine, vancomycin intermittent/pulse dosing PLACEHOLDER ORDER Pertinent Labs: Lab Results Component Value Date CREATININE 11.88 (H) 06/04/2020 BUN 64 (H) 06/04/2020 NA 137 06/04/2020 K 4.8 06/04/2020 CL 97 (L) 06/04/2020 CO2 25 06/04/2020 Lab Results Component Value Date ALBUMIN 3.1 (L) 06/04/2020 ALBUMIN 3.1 (L) 06/04/2020 Lab Results Component Value Date CALCIUM 9.5 06/04/2020 PHOS 7.6 (H) 06/04/2020 Lab Results Component Value Date MG 2.2 06/04/2020 Lab Results Component Value Date POCGMD 177 (H) 06/04/2020 Lab Results Component Value Date HGBA1C 6.9 (H) 01/27/2020 Lab Results Component Value Date CRP 197.1 (H) 06/01/2020 Skin Integrity: incision on back Douglas Score: 19 Edema: None Potential Nutrition Related Factor(s): Appetite Change Food Allergies/Intolerances: NKFA Cultural Requests: N/A 45 y.o. Male Ht Readings from Last 1 Encounters: 06/02/20 5' 7 (1.702 m) Wt Readings from Last 1 Encounters: 06/03/20 (!) 254 lb 3.2 oz (115.3 kg) Body mass index is 39.81 kg/m??. [place] Body Weight: 148 lb (67.27 kg) +/- 10% Weight History: Wt Readings from Last 20 Encounters: 06/03/20 (!) 254 lb 3.2 oz (115.3 kg) 03/16/20 (!) 278 lb (126.1 kg) 03/12/20 (!) 278 lb (126.1 kg) 03/11/20 (!) 277 lb 12.8 oz (126 kg) 03/11/20 (!) 277 lb 12.8 oz (126 kg) 02/13/20 (!) 277 lb 12.8 oz (126 kg) 10/04/19 (!) 278 lb (126.1 kg) 09/19/19 (!) 278 lb 12.8 oz (126.5 kg) 07/30/19 (!) 284 lb 8 oz (129 kg) 07/24/19 (!) 290 lb (131.5 kg) 07/01/19 (!) 292 lb 14.4 oz (132.9 kg) 02/28/19 (!) 282 lb (127.9 kg) 02/12/19 (!) 282 lb (127.9 kg) 01/17/19 (!) 286 lb 14.4 oz (130.1 kg) 12/13/18 (!) 286 lb (129.7 kg) 09/13/18 (!) 291 lb 12.8 oz (132.4 kg) 06/05/18 (!) 281 lb 9.6 oz (127.7 kg) 06/04/18 (!) 285 lb 0.2 oz (129.3 kg) 05/07/18 (!) 278 lb (126.1 kg) 02/26/18 (!) 260 lb (117.9 kg) Nutrition Related Problems: Nutrition Diagnosis: Increased nutrient needs Related To: increased demand As Evidenced By: ESRD on HD Estimated Nutrition Needs: Needs based On: IBW, 67 kg Kcals/day: 8823-4037 kcal (25-30 kcal/kg) Protein g/day: 87-100 g (1.3-1.5 g/kg) Carbohydrate g/day: ~55% total kcal Fluid ml/day: 1 ml/kcal or per MD Recommended Interventions: Monitor PO Intake/Tolerance Goals: Total energy intake improved as evidenced by PO intake at least 55-75% of meals/supplements/snacks within 3-5 days Nutrition Transition of Care Plan: Discharge plan of care for nutrition pending ongoing clinical course. Nutrition Status Classification: Moderately Compromised Follow up per protocol while inpatient. Recommendation(s) to Physician: 1. Monitor/encourage PO intake. 2. If PO intake consistently <50%, recommend Novasource Renal TID. 3. Monitor weight, nutrition-related labs and plan of care. Cristóbal Rock RD, LD Clinical Dietitian Pager: [phone] * Kimber Alcantar MD - 06/04/2020 12:46 PM EDT Transplant Nephrology Consult Follow Up Note Assessment/Plan: - ESRD on home HD 5 days/week. - will keep MWF schedule while inpatient - hemodynamically stable, labs & volume status acceptable - Anemia - on Epo - LUE US showing >50% stenosis SAL Cirrhosis s/p OLT in 2018 - MMF being held due to Osteomyelitis - on Cyclosporine Recommendations: - HD today - may need temporary switch to in center TIW HD in the outpatient setting to accommodate for accurate antibiotic dosing. KIMBER ALCANTAR MD PGY4 Nephrology Fellow 06/04/2020 Discussed with Consult Staff Reason for Renal Consult : ESRD HPI Patient ESRD on HD at home ([facility]), SAL cirrhosis s/p liver transplant 2018,??pulmonary HTN, JC, DM2, HTN, obesity admitted with complaint of subacute low back pain and weakness following spinalsurgery. ?? Patient underwent spinal surgery (lumbar laminectomy, discectomy and posterior decompression at L4-L5) at [facility] 04/29. Patient is having worsening back paina [facility] concerning for L5-S1 discitis and osteomyelitis with abnormal soft tissue and fluid density of posterior paraspinous tissues L3- S1 with apparent extension into the central canal at L5, suspicious for soft tissue infection. Interval History: - comfortable in bed, no complaints. - unchanged from yesterday PHYSICAL EXAM Temp: [97.9 ??F (36.6 ??C)-98.5 ??F (36.9 ??C)] 98.5 ??F (36.9 ??C) Heart Rate: [97-120] 97 Resp: [18-19] 18 BP: (122-158)/(71-82) 148/78 Wt Readings from Last 3 Encounters: 06/03/20 (!) 254 lb 3.2 oz (115.3 kg) 03/16/20 (!) 278 lb (126.1 kg) 03/12/20 (!) 278 lb (126.1 kg) Intake/Output Summary (Last 24 hours) at 06/04/2020 1246 Last data filed at 06/04/2020 1010 Gross per 24 hour Intake 840 ml Output 0 ml Net 840 ml General appearance: NAD Head: Normocephalic, atraumatic Mouth: moist mucus membranes Neck: Supple Lungs: diminished in the bases Heart: regular rate and rhythm Abdomen: soft, non-tender non-distended Extremities: trace LE edema Skin: No rashes MEDS Scheduled Meds: ??? acetaminophen 975 mg Oral Q6H ??? carBAMazepine 200 mg Oral Nightly (2099) ??? ceFEPime (MAXIPIME) IV extended infusion 1 g Intravenous Q24H ??? cycloSPORINE modified 50 mg Oral BID ??? entecavir 0.5 mg Oral Q7 Days ??? epoetin giancarlo-epbx 6,000 Units Subcutaneous Once per day on Mon ??? gabapentin 200 mg Oral Nightly (2099) ??? heparin 5,000 Units Subcutaneous 3 times per day ??? hydrALAZINE 100 mg Oral 3 times per day ??? insulin lispro 0-5 Units Subcutaneous TID AC ??? lidocaine 1 patch Transdermal Q24H ??? melatonin 3 mg Oral Nightly (2099) ??? methocarbamoL 500 mg Oral QID ??? metoprolol tartrate 25 mg Oral BID ??? NIFEdipine 90 mg Oral BID ??? pantoprazole 40 mg Oral DAILY 0600 ??? polyethylene glycol 17 g Oral BID ??? quetiapine 12.5 mg Oral Nightly (2099) ??? senna-docusate 2 tablet Oral Nightly (2099) ??? terazosin 10 mg Oral Nightly (2099) Continuous Infusions: PRN Meds:.ALPRAZolam, dextrose 50 % in water (D50W) OR dextrose 50 % in water (D50W), glucose, HYDROmorphone, ondansetron, proMETHazine, vancomycin intermittent/pulse dosing PLACEHOLDER ORDER DATA : Date 06/03/20699 - 06/04/2065806/04/20699 - 06/05/20 0659 Shift 8501-9797 6735-3046 8152-7935 24 Hour Total 1658-6540 6003-6459 7705-2313 24 Hour Total INTAKE P.O. 360 480 840 360 360 P.O. 360 480 840 360 360 Shift Total(mL/kg) 360(3.1) 480(4.2) 840(7.3) 360(3.1) 360(3.1) OUTPUT Urine(mL/kg/hr) 0(0) 0(0) 0(0) Urine 0 0 0 Urine Occurrence 0 x 0 x 0 x 0 x Emesis/NG output 0 0 0 Emesis 0 0 0 Stool 0 0 0 Stool Occurrence 0 x 0 x 0 x 0 x Stool 0 0 0 Shift Total(mL/kg) 0(0) 0(0) 0(0) Weight (kg) 115.3 115.3 115.3 115.3 115.3 115.3 115.3 115.3 Recent Labs 06/02/20 0407 06/03/20 0721 06/04/20 0657 WBC 6.3 6.0 4.4 HGB 7.1* 7.6* 7.1* HCT 21.3* 23.1* 21.2* PLT 325 335 272 Recent Labs 06/02/20 0407 06/03/20 0504 06/04/20 0657 NA 137 138 137 K 4.8 4.7 4.8 CL 98 98 97* CO2 23 26 25 BUN 71* 56* 64* CREATININE 12.81* 11.03* 11.88* GLUCOSE 132* 113* 148* Lab Results Component Value Date CREATININE 11.88 (H) 06/04/2020 BUN 64 (H) 06/04/2020 NA 137 06/04/2020 K 4.8 06/04/2020 CL 97 (L) 06/04/2020 CO2 25 06/04/2020 Lab Results Component Value Date PTH 164.0 (H) 01/14/2019 CALCIUM 9.5 06/04/2020 PHOS 7.6 (H) 06/04/2020 Lab Results Component Value Date QANC92M 15.8 (L) 01/14/2019 Lab Results Component Value Date WBC 4.4 06/04/2020 HGB 7.1 (L) 06/04/2020 HCT 21.2 (L) 06/04/2020 MCV 91.7 06/04/2020 PLT 272 06/04/2020 Lab Results Component Value Date IRON 19 [...] evaluation and management of the patient on 06/04/2020. Cosigned by Rajwinder Polanco at 06/04/2020 2:37 PM EDT Associated attestation - Rajwinder Polanco - 06/04/2020 2:37 PM EDT I saw and evaluated the patient, and discussed with the resident. I agree with the resident???s findings and plan as documented in the resident???s note. IHD today * Jay Day MD - 06/04/2020 11:47 AM EDT Department of Internal Medicine Daily Progress Note Chief Complaint / Reason for Follow-Up Leoncio Rollins Jr. is a 45 y.o. male with a history of ESRD on HD at home ([facility]), SAL cirrhosis s/p liver transplant 2018, pulmonary HTN, JC, DM2, HTN, obesity presenting to the hospital as direct admission with complaint of subacute low back pain and weakness following spinal surgery. Interval History / Subjective - Leg pain is better than yesterday. - US of fistula with patent AVF, will get iHD today Review of Systems (Focused) Review of Systems Constitutional: Negative for chills and fever. Respiratory: Negative for cough and shortness of breath. Cardiovascular: Negative for chest pain. Musculoskeletal: +leg pain Medications Scheduled Meds: ??? acetaminophen 975 mg Oral Q6H ??? carBAMazepine 200 mg Oral Nightly (2099) ??? ceFEPime (MAXIPIME) IV extended infusion 1 g Intravenous Q24H ??? cycloSPORINE modified 50 mg Oral BID ??? entecavir 0.5 mg Oral Q7 Days ??? epoetin giancarlo-epbx 6,000 Units Subcutaneous Once per day on Mon Wed Mon ??? gabapentin 200 mg Oral Nightly (2099) ??? heparin 5,000 Units Subcutaneous 3 times per day ??? hydrALAZINE 100 mg Oral 3 times per day ??? insulin lispro 0-5 Units Subcutaneous TID AC ??? lidocaine 1 patch Transdermal Q24H ??? melatonin 3 mg Oral Nightly (2099) ??? methocarbamoL 500 mg Oral QID ??? metoprolol tartrate 25 mg Oral BID ??? NIFEdipine 90 mg Oral BID ??? pantoprazole 40 mg Oral DAILY 0600 ??? polyethylene glycol 17 g Oral BID ??? quetiapine 12.5 mg Oral Nightly (2099) ??? senna-docusate 2 tablet Oral Nightly (2099) ??? terazosin 10 mg Oral Nightly (2099) Continuous Infusions: PRN Meds: ALPRAZolam, dextrose 50 % in water (D50W) OR dextrose 50 % in water (D50W), glucose, HYDROmorphone, ondansetron, proMETHazine, vancomycin intermittent/pulse dosing PLACEHOLDER ORDER Vital Signs Temp: [97.9 ??F (36.6 ??C)-98.5 ??F (36.9 ??C)] 98.5 ??F (36.9 ??C) Heart Rate: [97-120] 97 Resp: [18-19] 18 BP: (122-158)/(71-82) 148/78 Intake/Output Summary (Last 24 hours) at 06/04/2020 1158 Last data filed at 06/04/2020 1010 Gross per 24 hour Intake 840 ml Output 0 ml Net 840 ml Physical Exam Vital signs reviewed. General: Age appropriate male, in no acute distress Heart: Regular rate and rhythm, no murmurs, rubs, gallops Lungs: Clear to auscultation bilaterally, no wheezes or rales, normal work of breathing Abdomen: Soft, obese, non-tender, non-distended, scar present from prior liver transplant Extremities: No clubbing, no edema, AVF present on L UE for dialysis, localized swelling felt behind the left knee. Skin: No rashes, no jaundice Neuro: AOx4, moves all 4 extremities, Strength decreased/limited due to pain at L hip, normal sensation of lower extremities, follows commands Psych: Alert and appropriate, normal affect Laboratory Data CBC 06/04/2020 \ 7.1 / 4.4 \ / 272 / \ / 21.2 \ Differential 06/04/2020 N 64.1 L 8.7 M 6.8 E 7.8 B 0.0 Renal 06/04/2020 137 97 64 / ___ __ / 148 \ 4.8 25 11.88 \ Ca 9.5 (06/04/2020) Mg 2.2 (06/04/2020) Phos 7.6 (06/04/2020) Lipids Lab Results Component Value Date CHOLTOT 236 (H) 01/27/2020 TRIG 303 (H) 01/27/2020 HDL 32 (L) 01/27/2020 LDL 143 01/27/2020 LFTs 06/04/2020 \ 0.4 / \ 0.11 / 10 \ / 9 / \ / 63 \ PT/INR/PTT - 06/04/2020 PT 16.5 INR 1.3 PTT 28.6 Lab Results Component Value Date TSH 3.59 01/27/2020 FREET4 1.03 10/20/2017 Lab 06/04/20 0831 06/03/20 1651 06/03/20 0933 06/02/20 2149 POC GLU MONITORING DEVICE 177* 166* 132* 139* Diagnostic Studies Duplex Scan Hemodialysis Access Final Result X-ray Comparison Images Final Result MRI Lumbar spine WO contrast Final Result IMPRESSION: 1. Transitional anatomy is noted at [...] a small postoperative seroma versus an abscess. Report Verified by: Leanna Wilks MD at 05/30/2020 9:05 PM EDT X-ray Chest PA or AP Final Result IMPRESSION: No acute cardiopulmonary abnormality. Report Verified by: Manolo Rosenthal MD at 05/29/2020 4:46 PM EDT X-ray Comparison Images Final Result X-ray Comparison Images Final Result X-ray Comparison Images Final Result CT Lumbar WO at OSH: - postoperative changes realted to posterior decompressive resection at L5 - Findings suspicious for L5-S1 discitis and osteomyelitis. - Abnormal soft tissue and fluid density in posterior paraspinous tissues at L3- S1 with apparent extension into the central canal at L5 level, suspicious for soft tissue infection ?? Assessment & Plan Leoncio Rollins Jr. is a 45 y.o. male being admitted to the hospital for concern for osteomyelitis. Medical problems being addressed in this encounter include the following: ?? Principal Problem: Osteomyelitis ([facility] Dx) Active Problems: Liver transplant recipient ([facility] Dx) ?? #Osteomyelitis Patient with recent spinal surgery now with back pain, difficulty walking and imaging findings concerning for osteomyelitis and soft tissue infection. Patient neurologically in tact. Patient receivedone dose of vanc and zosyn at OSH. - vancomycin, cefepime to cover empirically - MRI WO Spine: osteomyelitis discitis again noted at L4-L5 with a moderate- sized epidural abscess,compressing the distal thecal sac. - Transplant ID consult, recommend to continue IV vanco + cefepime - spine surgery consult : No surgical intervention, recommend complete course of IV Abx unless patient develops acute neurologic red flag - blood cultures x2 : NG after 5 days - follow-up blood cultures at OSH - NG after 5 days - Dilaudid 0.5 Q6h PRN for pain, leg pain not improved, Pain management was consulted 06/03, Scheduled Tylenol 975 mg q6h, and robaxin was added. - Went to IR for CT guided fluid aspiration 06/03 -- 12 mL of purulent fluid were aspirated and sent for culture,to guide antibiotics regimen - US duplex of the left leg to r/o DVT #Upper GI Bleed #Anemia of Chronic disease Patient had an episode of black emesis on 05/28. Hb 7.3 down of 7.9 on admission. He was started onIV PPI and transitioned to PO after EGD. -S\p EGD which showed large amount of coffee ground fluid in stomach and circumferential adenomatous mass-like lesion in the distal esophagus at the GE junction. Biopsied.??No e/o active bleeding. - patient Hb after iHD was found to be 6.2 so 2 unit of pRBC was transfused with improvement to 7.8 - Awaiting biopsy results - Trend Hb, transfuse if <7 #ESRD on iHD Patient dialyzes on , , , , at home with AVF in LUE. . Not eligible for transplant due to BMI >40. - On admission CBC, renal, Mg - BUN 88, K 5.5 - EKG without changes, no AMS - Nephrology consult for dialysis continuatio - on 06/01 Patient went for unsuccessful dialysis with reported clots coming from AVF - IR declot 06/02 w/plan to dialyze afterwards, Could not tolerate full run of iHD d/t fistula issues - US fistula 06/03 patent fistula. - if patient chose to d\c home, he can transition to 3 days a week dialysis schedule, which will give more options when choosing home abx selection. #SAL Cirrhosis s/p liver transplant 2017 No acute decompensation. Patient follows with Dr. Ordoñez, last seen 12/2019. Previously on tacrolimus for IS but experienced AMS so switched to cyclosporine 50 mg BID and cellcept 250 mg BID - hepatic function panel, PT-INR, renal panel - liver consult : recomended stopping Cellcept, restarting home Cyclosporine 50 mg BID - lifelong entecavir 0.5 mg weekly due to high risk donor (HBV ALEXANDRA +, HCV Ab+, ALEXANDRA negative) - Continue to hold Cellcept. - Restart Cyclosporine 50 mg BID 05/29 MELD-Na score: 23 at 06/04/2020 6:57 AM Calculated from: Serum Creatinine: 11.88 mg/dL (Rounded to 4 mg/dL) at 06/04/2020 6:57 AM Serum Sodium: 137 mmol/L at 06/04/2020 6:57 AM Total Bilirubin: 0.4 mg/dL (Rounded to 1 mg/dL) at 06/04/2020 6:57 AM INR(ratio): 1.3 at 06/04/2020 6:57 AM Age: 45 years #Type 2 Diabetes Mellitus Home regimen humalin 48u qAM, 24u nightly. Last HgA1c 6.9% 01/27/2020. - LDSSI - gabapentin and tegretol for neuropathy ?? #GERD - Continue home famotidine ?? #HTN On hydralazine TID, clonidine as needed on dialysis day, nifedipine BID, doxazosin at night - Restarted home hydralazine, nifedipine - hytrin (therapeutic interchange for doxazosin) ?? #Pulmonary Hypertension On echo 07/2019 - PAP estimated to be 50 mmg Hg, likely due to JC/OHS. - avoid hypoxia, NC as needed - appears euvolemic on exam ?? #JC - BiPAP at night ?? Nutrition: Diet Orders Diet consistent carb 60-75g/meal; renal starting at 06/03 1003 Code Status: Full Code Signed: JAY DAY MD 06/04/2020, 11:58 AM Cosigned by Aby Cavazos MD at 06/04/2020 4:04 PM EDT Associated attestation - Aby Cavazos MD - 06/04/2020 4:04 PM EDT INTERNAL MEDICINE ATTENDING PHYSICIAN ATTESTATION Leoncio Oviedo Eh Marques was seen today on rounds with the team. I personally interviewed and examined the patient. I reviewed the documentation by the resident or medical student and agree as documented, except for additional comments or corrections listed below. Assessment and plan Agreeable to home PT/OT and three times weekly home HD. Await cultures to determine final antibiotic regimen. Aby Cavazos MD Clinical Instructor Department of Internal Medicine 06/04/2020 4:03 PM * Dave Dave MD - 06/04/2020 10:33 AM EDT INFECTIOUS DISEASE PROGRESS NOTE 06/04/2020 10:33 AM Leoncio Rollins Jr. is a 45 y.o. male patient. Hospital Day: 7 Chief Complaint/Reason for Follow-up: RODNEY epidural abscess and diskitis at L5 in liver xplant recipient Subjective: Feeling ok today. Still with back and leg pain. Complains of itchy area on buttock - concern for developing pressure sore. S/p IR aspiration yesterday - gram stain with rare GPCs in pairs. Review of Systems Constitutional: Negative for chills, diaphoresis, fatigue and fever. Respiratory: Negative for cough and shortness of breath. Cardiovascular: Negative for leg swelling. Gastrointestinal: Negative for abdominal pain, diarrhea, nausea and vomiting. Musculoskeletal: Positive for back pain and gait problem. L leg weakness Skin: Negative for rash. Neurological: Positive for weakness. Objective: Vital signs: Vitals: 06/04/20 0846 BP: 148/78 Pulse: 97 Resp: 18 Temp: 98.5 ??F (36.9 ??C) SpO2: 92% Temp last 24 hours:Temp (24hrs), Av.3 ??F (36.8 ??C), Min:97.9 ??F (36.6 ??C), Max:98.6 ??F (37??C) Scheduled Meds: ??? acetaminophen 975 mg Oral Q6H ??? carBAMazepine 200 mg Oral Nightly (2099) ??? ceFEPime (MAXIPIME) IV extended infusion 1 g Intravenous Q24H ??? cycloSPORINE modified 50 mg Oral BID ??? entecavir 0.5 mg Oral Q7 Days ??? epoetin giancarlo-epbx 6,000 Units Subcutaneous Once per day on Mon ??? gabapentin 200 mg Oral Nightly (2099) ??? heparin 5,000 Units Subcutaneous 3 times per day ??? hydrALAZINE 100 mg Oral 3 times per day ??? insulin lispro 0-5 Units Subcutaneous TID AC ??? lidocaine 1 patch Transdermal Q24H ??? melatonin 3 mg Oral Nightly (2099) ??? methocarbamoL 500 mg Oral QID ??? metoprolol tartrate 25 mg Oral BID ??? NIFEdipine 90 mg Oral BID ??? pantoprazole 40 mg Oral DAILY 0600 ??? polyethylene glycol 17 g Oral BID ??? quetiapine 12.5 mg Oral Nightly (2099) ??? senna-docusate 2 tablet Oral Nightly (2099) ??? terazosin 10 mg Oral Nightly (2099) Continuous Infusions: PRN Meds:ALPRAZolam, dextrose 50 % in water (D50W) OR dextrose 50 % in water (D50W), glucose, HYDROmorphone, ondansetron, proMETHazine, vancomycin intermittent/pulse dosing PLACEHOLDER ORDER Intake/Output last 3 shifts: Date 06/03/20 0700 - 06/04/20 0659 06/04/20 0700 - 06/05/20 0659 Shift 6829-0750 2988-7240 6808-2458 24 Hour Total 6197-1859 6036-0680 3097-7112 24 Hour Total INTAKE P.O. 360 480 840 360 360 P.O. 360 480 840 360 360 Shift Total(mL/kg) 360(3.1) 480(4.2) 840(7.3) 360(3.1) 360(3.1) OUTPUT Urine(mL/kg/hr) 0(0) 0(0) 0(0) Urine 0 0 0 Urine Occurrence 0 x 0 x 0 x 0 x Emesis/NG output 0 0 0 Emesis 0 0 0 Stool 0 0 0 Stool Occurrence 0 x 0 x 0 x 0 x Stool 0 0 0 Shift Total(mL/kg) 0(0) 0(0) 0(0) Weight (kg) 115.3 115.3 115.3 115.3 115.3 115.3 115.3 115.3 Physical Exam Vitals signs and nursing note reviewed. Constitutional: General: He is not in acute distress. Appearance: He is obese. He is ill-appearing. He is not diaphoretic. Cardiovascular: Rate and Rhythm: Regular rhythm. Tachycardia present. Heart sounds: Murmur (systolic) present. Pulmonary: Effort: Pulmonary effort is normal. Abdominal: Tenderness: There is no right CVA tenderness or left CVA tenderness. Musculoskeletal: Right lower leg: No edema. Left lower leg: No edema. Comments: Band of tenderness across lower lumbar area. Skin: General: Skin is warm and dry. Findings: No rash. Comments: L forearm AV fistula is bruised, warm and swollen Neurological: Mental Status: He is alert. Labs: Lab 06/04/20 0657 WBC 4.4 HEMOGLOBIN 7.1* HEMATOCRIT 21.2* MEAN CORPUSCULAR VOLUME 91.7 PLATELETS 272 Lab 06/04/20 0657 SODIUM 137 POTASSIUM 4.8 CHLORIDE 97* CO2 25 BUN 64* CREATININE 11.88* GLUCOSE 148* CALCIUM 9.5 MAGNESIUM 2.2 PHOSPHORUS 7.6* Lab 06/04/20 0657 ALK PHOS 63 AST 10* ALT 9 BILIRUBIN TOTAL 0.4 BILIRUBIN DIRECT 0.11 Lab 06/04/20 0657 PROTHROMBIN TIME 16.5* INR 1.3* Results for LEONCIO ROLLINS JR. ( ) as of 06/01/2020 16:30 Ref. Range 05/28/2020 15:41 05/30/2020 12:06 06/01/2020 05:17 Vancomycin Random Latest Units: ug/mL 16.3 22.9 Vancomycin Tr Latest Ref Range: 10.0 - 20.0 ug/mL 17.7 Microbiology Results Date and Time Order Name Sensitivity Status Organisms Specimen ID Source 06/03/2020 0831 Anaerobic culture Preliminary [id number] Back 06/03/2020 0831 Routine Culture plus Stain Preliminary [id number] Back 05/28/2020 1541 #1 Blood culture-Peripheral Final [id number] Peripheral 05/28/2020 1404 #2 Blood culture-Peripheral Final [id number] Peripheral Assessment/Plan: Principal Problem: Osteomyelitis ([facility] Dx) Active Problems: Esophagitis Liver transplanted ([facility] Dx) Liver transplant recipient ([facility] Dx) Immunosuppression ([facility] Dx) History of liver transplant ([facility] Dx) ESRD (end stage renal disease) ([facility] Dx) Anemia, unspecified Leoncio Rollins Jr. is a 45 y.o. male with a history of DM2, JC, PAH, and SAL cirrhosis s/p OLT inFebruary 2017 - donor HBV+ and HCV Ab +. On cellcept + cyclosporine (AMS on tacro) + entecavir. Developed LBP in early April followed by fever - found to have L5 discities with epidural abscess s/p L4-L5 laminectomy/discectomy 04/29/20. Cultures positive for MRSE. Treated with vancomycin inpatient until 05/13/20 then vancomycin with HD. Has not been out of bed since going home and insurance will no longer pain for ambulance to HD. Has been on doxycycline PO and linezolid since 05/26/20. Presented [facility] with worsening back pain and had CT lumbar spine concerning for L5-S1 discitis and OM with abnormal soft tissue and fluid density of posterior paraspinous L3-S1 tissues with extension into central canal at L5. Transferred to [facility] on 05/28/20. 1) Disicitis/ OM - S/p IR aspirate 06/03 - gram stain with GPCs in pairs ?? Continue IV vancomycin, cefepime ?? MATHEW consulted - recommended no surgical intervention ?? Will follow culture results - may be able to deescalate cefepime based on results ?? May not be able to use vanc post-HD if he dialyzes at home post discharge. Especially given his worsening on PO therapy, I would want to plan to complete course with IV antibiotics so we will needa solid plan for this. Will continue to follow. Dave Dave MD 06/04/2020 cell [phone] pager The HPI, ROS, physical exam, test results, and assessment & plan were reviewed and copied forward (with edits) from a note written by me on 06/02/20. I have reviewed and updated the history, physical exam, data, assessment, and plan of the note so that it reflects my evaluation and management of the patient. * Darrian MolinaD - 06/04/2020 9:47 AM EDT Images from the original note were not included. [facility] Clinical Pharmacy Service: Vancomycin Monitoring Consult Leoncio Rollins Jr. is a 45 y.o. male currently being treated for possible spinal osteo Patient is allergic to codeine sulfate and codeine. Pharmacy consulted for vancomycin management by Dr. Galvez. Current Anti-Infectives Dose Frequency Start End cefepime (MAXIPIME) 1 g in sodium chloride 0.9% 50 mL IVPB ADDaptor 1 g Every 24 hours 06/02/2020 Admin Instructions: For Hemodialysis patients - on dialysis days, please administer Cefepime dose after completion of hemodialysis.Use ADDaptor product - Mix Thoroughly Before Administration Route: Intravenous entecavir (BARACLUDE) tablet 0.5 mg 0.5 mg Every 7 days 06/02/2020 Admin Instructions: ADMINISTER ON EMPTY STOMACH (2 HOURS BEFORE OR AFTER MEALS).LEVEL 2 HAZARDOUS MEDICATION Route: Oral vancomycin intermittent/pulse dosing PLACEHOLDER ORDER Use as directed PRN 05/28/2020 Admin Instructions: Patient is receiving intermittent/pulse vancomycin dosing based on random serumlevels. NOTE:This is NOT an active medication order. If a dose of vancomycin is needed, it must be entered as a one-time dose by physicians or pharmacists. Route: Intravenous documented within (last 72 hours) Date/Time Action Medication Dose Rate 06/02/20 1617 Given vancomycin (VANCOCIN) 1,250 mg in sodium chloride 0.9 % 250 mL IVPB 1,250 mg 200 mL/hr 06/01/20 1711 Hold [Per verbal order] vancomycin (VANCOCIN) 1,250 mg in sodium chloride 0.9 % 250 mL IVPB 0 mL/hr --Objective Data-- Vitals: 06/03/20 2034 06/04/20 0101 06/04/20 0435 06/04/20 0846 BP: 134/75 158/75 122/71 148/78 Pulse: 120 109 101 97 Resp: Temp: 98.4 ??F (36.9 ??C) 98 ??F (36.7 ??C) 97.9 ??F (36.6 ??C) 98.5 ??F (36.9 ??C) TempSrc: Oral Oral Oral Oral SpO2: 95% 96% 95% 92% Weight: Height: I/O last 3 completed shifts: In: 1080 [P.O.:1080] Out: 100 [Urine:100] WBC, BUN, Creatinine (Last 7 days) WBC BUN Creatinine 4.4 10E3/uL 06/04/20 0657 64 mg/dL 06/04/20 0657 11.88 mg/dL 06/04/20 0657 6.0 10E3/uL 06/03/20 0721 56 mg/dL 06/03/20 0504 11.03 mg/dL 06/03/20 0504 6.3 10E3/uL 06/02/20 0407 71 mg/dL 06/02/20 0407 12.81 mg/dL 06/02/20 0407 [place] body weight: 66.1 kg (145 lb 11.6 oz) Adjusted ideal body weight: 85.8 kg (189 lb 1.8 oz) ESRD on HD --Cultures-- Microbiology Results Date and Time Order Name Sensitivity Status Organisms Specimen ID Source 06/03/2020 0831 Anaerobic culture Preliminary [id number] Back 06/03/2020 0831 Routine Culture plus Stain Preliminary [id number] Back 05/28/2020 1541 #1 Blood culture-Peripheral Final [id number] Peripheral 05/28/2020 1404 #2 Blood culture-Peripheral Final [id number] Peripheral --Vancomycin Concentrations-- Lab Results (Last 7 days) Vanc Rdm Vanc Tr 25.2 ug/mL 06/04/20 0657 17.7 ug/mL 06/01/20 0517 29.8 ug/mL 06/03/20 0504 16.1 ug/mL 06/02/20 0407 --Assessment and Plan-- ?? Patient is a 45 y.o. male being treated with vancomycin for possible spinal osteo. ?? Random vancomycin level 25.2 mg/L this AM. No doses today - will ensure patient gets adequate HDtoday first. ?? Goal vancomycin trough of 15-20 mg/L ?? Will check vancomycin serum concentration tomorrow AM and dose from there ?? Pharmacy will continue to monitor therapy for efficacy and toxicity. Thank you for the consult. Cecelia Womack PharmD, [facility] Clinical [facility] Internal Medicine/Diabetes Now Pager [phone] Office: [phone] Clinical Pharmacist On-Call Pager [phone] 06/04/2020 9:47 AM * Kimber Alcantar MD - 06/03/2020 5:46 PM EDT Transplant Nephrology Consult Follow Up Note Assessment/Plan: - ESRD on home HD 5 days/week. - will keep MWF schedule while inpatient - hemodynamically stable, labs & volume status acceptable - Anemia - on Epo SAL Cirrhosis s/p OLT in 2018 - MMF being held due to Osteomyelitis - on Cyclosporine Recommendations: LEIA WARD pending Plan for HD tomorrow KIMBER ALCANTAR MD PGY4 Nephrology Fellow 06/03/2020 Discussed with Consult Staff Reason for Renal Consult : ESRD HPI Patient ESRD on HD at home ([id number]), SAL cirrhosis s/p liver transplant 2018,??pulmonary HTN, JC, DM2, HTN, obesity admitted with complaint of subacute low back pain and weakness following spinalsurgery. ?? Patient underwent spinal surgery (lumbar laminectomy, discectomy and posterior decompression at L4-L5) at [facility] 04/29. Patient is having worsening back paina [facility] concerning for L5-S1 discitis and osteomyelitis with abnormal soft tissue and fluid density of posterior paraspinous tissues L3- S1 with apparent extension into the central canal at L5, suspicious for soft tissue infection. Interval History: - comfortable in bed, no complaints. - denies SOB or increased swelling - makes small volume of urine per day - no change to LUE swelling or discoloration PHYSICAL EXAM Temp: [97.9 ??F (36.6 ??C)-99.6 ??F (37.6 ??C)] 98.5 ??F (36.9 ??C) Heart Rate: [116-126] 117 Resp: [12-22] 18 BP: (123-177)/(68-90) 142/82 Wt Readings from Last 3 Encounters: 06/03/20 (!) 254 lb 3.2 oz (115.3 kg) 03/16/20 (!) 278 lb (126.1 kg) 03/12/20 (!) 278 lb (126.1 kg) Intake/Output Summary (Last 24 hours) at 06/03/2020 1746 Last data filed at 06/03/2020 1654 Gross per 24 hour Intake 840 ml Output 100 ml Net 740 ml General appearance: NAD Head: Normocephalic, atraumatic Mouth: moist mucus membranes Neck: Supple Lungs: diminished in the bases Heart: regular rate and rhythm Abdomen: soft, non-tender non-distended Extremities: trace LE edema Skin: No rashes MEDS Scheduled Meds: ??? carBAMazepine 200 mg Oral Nightly (2099) ??? ceFEPime (MAXIPIME) IV extended infusion 1 g Intravenous Q24H ??? cycloSPORINE modified 50 mg Oral BID ??? entecavir 0.5 mg Oral Q7 Days ??? epoetin giancarlo-epbx 6,000 Units Subcutaneous Once per day on Mon ??? gabapentin 200 mg Oral Daily 0900 ??? hydrALAZINE 100 mg Oral 3 times per day ??? insulin lispro 0-5 Units Subcutaneous TID AC ??? lidocaine 1 patch Transdermal Q24H ??? melatonin 3 mg Oral Nightly (2099) ??? metoprolol tartrate 25 mg Oral BID ??? NIFEdipine 90 mg Oral BID ??? pantoprazole 40 mg Oral DAILY 0600 ??? polyethylene glycol 17 g Oral BID ??? quetiapine 12.5 mg Oral Nightly (2099) ??? senna-docusate 2 tablet Oral Nightly (2099) ??? terazosin 10 mg Oral Nightly (2099) Continuous Infusions: PRN Meds:.acetaminophen, ALPRAZolam, dextrose 50 % in water (D50W) OR dextrose 50 % in water (D50W), glucose, HYDROmorphone, ondansetron, proMETHazine, vancomycin intermittent/pulse dosing PLACEHOLDER ORDER DATA : Date 06/02/20 1500 - 06/03/20 0659 06/03/20 0700 - 06/04/20 0659 Shift 1989-4419 4574-6385 24 Hour Total 7211-1719 9257-5155 2356-5760 24 Hour Total INTAKE P.O. 240 360 360 240 600 P.O. 240 360 360 240 600 Shift Total(mL/kg) 240(1.9) 360(3.1) 360(3.1) 240(2.1) 600(5.2) OUTPUT Urine(mL/kg/hr) 200(0.2) 500(0.2) 0(0) 0 0 Urine 200 500 0 0 0 Urine Occurrence 0 x 0 x Emesis/NG output 0 0 0 Emesis 0 0 0 Other 0 Net fluid removal (ml) 0 Stool 0 0 0 Stool Occurrence 0 x 0 x Stool 0 0 0 Shift Total(mL/kg) 200(1.6) 500(4.3) 0(0) 0(0) 0(0) Weight (kg) 126.1 115.3 115.3 115.3 115.3 115.3 115.3 Recent Labs 06/01/20 0517 06/02/20 0407 06/03/20 0721 WBC 6.4 6.3 6.0 HGB 7.4* 7.1* 7.6* HCT 22.0* 21.3* 23.1* PLT 337 325 335 Recent Labs 06/01/20 0517 06/02/20 0407 06/03/20 0504 NA 138 137 138 K 4.8 4.8 4.7 CL 97* 98 98 CO2 23 23 26 BUN 70* 71* 56* CREATININE 11.79* 12.81* 11.03* GLUCOSE 132* 132* 113* Lab Results Component Value Date CREATININE 11.03 (H) 06/03/2020 BUN 56 (H) 06/03/2020 NA 138 06/03/2020 K 4.7 06/03/2020 CL 98 06/03/2020 CO2 26 06/03/2020 Lab Results Component Value Date PTH 164.0 (H) 01/14/2019 CALCIUM 9.7 06/03/2020 PHOS 6.3 (H) 06/03/2020 Lab Results Component Value Date CPDJ15G 15.8 (L) 01/14/2019 Lab Results Component Value Date WBC 6.0 06/03/2020 HGB 7.6 (L) 06/03/2020 HCT 23.1 (L) 06/03/2020 MCV 92.2 06/03/2020 PLT 335 06/03/2020 Lab Results Component Value Date IRON 19 [...] evaluation and management of the patient on 06/03/2020. Cosigned by Rajwinder Polanco at 06/03/2020 10:34 PM EDT Associated attestation - Rajwinder Polanco - 06/03/2020 10:34 PM EDT agree * Tanya Jackson, PT - 06/03/2020 4:08 PM EDT Physical Therapy Treatment Name: Leoncio Rollins Jr. : 1975 Attending Physician: Aby Cavazos MD Admission Diagnosis: POST-OP INFECTION Date: 06/03/2020 Room: 8024/U8024 Reviewed Pertinent hospital course: Yes Hospital Course PT/OT: 45 y.o. M p/w weakness and back pain. PMH of liver cirrhosis s/p OLT (2017) and recent L4-5 discectomy and posterior decompression; 05/28-05/29: coffee ground emesis; MRI L spine (05/30): persistent osteomyelitis discitis at L4-5 with moderate ventral epidural abscess with some compression, neurosx consulted with conservative mgmt, 05/28 EGD with no active bleeding Activity Level: Activity as tolerated Assessment Pt continues to demo decreased functional mobility this date / increased pain. Team notified. Pt able to tolerate supine to sit transfer this date with mod A, tolerates sitting x 25-30 seconds prior to increasing R hip pain requiring return to supine. Pt will continue to benefit from skilled therapy services to progress independence with mobility and tolerance to movement. Recommendation Recommendation: Short-term skilled PT Equipment Recommended: Defer until further assessment Outcome Measures AM-PAC 6 Clicks Basic Mobility Inpatient Short Form: PT 6 Clicks Score: 10 Mobility Recommendations for Staff Patient ability: Requires frequent repositioning (at least every 2 hours) Cognition Cognitive Assessment: Following Commands;Safety Judgment;Insight Arousal/Alertness: Alert Orientation Level: Oriented X4 Behavior: Apprehensive Following Commands: Follows all commands and directions without difficulty(pt self limits at times ) Safety Judgment: Impaired judgment Insight: Demonstrated decreased insght into limitations and abilites to complete ADls safely Comments: Pt with decreased insight into role of therapy and importance of pushing through pain to attempt to increase mobilization. therapsists offered education at length re: pain optimization and pushing through pain to attempt to make progress but pt very apprehensive and hesitant Pain Pain Score: 8 Pain Location: Hip Pain Descriptors: Burning;Sharp Therapist reported pain to: tem and RN Mobility Bed Mobility Rolling: Minimal assistance;towards the right;towards the left Supine to Sit: Moderate assistance;of 2 people;towards the right;head of bed elevated Sit to Supine: Maximum assistance;of 2 people;towards the left;head of bed flat Balance Sitting - Static: Moderate assistance(pt able to tolerate sitting ~25-30 sec prior to increased pain R thigh requiring return to supine ) Sitting - Dynamic: Maximum Assistance Position after Treatment and Safety Handoff Position after therapy session: Bed Details: Call light/ needs within reach, RN notified Alarms: Bed Alarms Status: Unchanged from previous setting Goals Goals Met: Bed mobility Goals to be met by: 06/05/20 Patient will transition from supine to sit: Minimal assistance(goal met and progressed 06/03) Patient will transfer from sit to stand: Will tolerate assessment Patient will ambulate: Will tolerate assessment Pt Will report pain with functional mobility at: 4/10 or less Long-term goal to be met by: 06/12/20 Custodial Goal : = STG Patient Stated Goal #1: decreased pain Patient/Family Education Educated patient and patient's family on the role of physical therapy, goals, plan of care and discharge recommendations and fall prevention strategies, including use of call light; patient and patient's family verbalized understanding. Plan Plan Treatment/Interventions: LE strengthening/ROM, Patient/family training, Gait training, Continued evaluation, Therapeutic Activity PT Frequency: minimum 3x/week The plan of care and recommendations assesses the patient's and/or caregiver's readiness, willingness, and ability to provide or support functional mobility and ADL tasks as needed upon discharge. Tanya Jackson PT [id number], DPT Pager: [phone] M-F: [phone] Time Start Time: 1325 Stop Time: 1422 Time Calculation (min): 57 min Charges $Therapeutic Activity: 4 units Problem List Patient Active Problem List Diagnosis ??? Esophagitis ??? Essential (primary) hypertension ??? Type 2 diabetes mellitus with diabetic chronic kidney disease (CMS Dx) ??? Liver transplanted (CMS Dx) ??? Liver transplant recipient (CMS Dx) ??? Encounter for therapeutic drug level monitoring ??? Immunosuppression (CMS Dx) ??? Peripheral edema ??? Unstable angina pectoris (CMS Dx) ??? Abnormal stress test ??? History of liver transplant (CMS Dx) ??? ESRD (end stage renal disease) (CMS Dx) ??? Group C streptococcal infection ??? Cytomegaloviral disease, unspecified (CMS Dx) ??? Pre-op evaluation ??? Anemia, unspecified ??? Osteomyelitis (CMS Dx) ??? Other fatigue ??? Vitamin D deficiency, unspecified ??? Unspecified protein-calorie malnutrition (CMS Dx) ??? Sepsis (CMS Dx) ??? Secondary hyperparathyroidism of renal origin (CMS Dx) ??? Renal osteodystrophy ??? Other disorders of electrolyte and fluid balance, not elsewhere classified ??? Nausea ??? SAL (nonalcoholic steatohepatitis) ??? intermediate card tender (current) use of insulin (CMS Dx) ??? Leukocytosis ??? Hyponatremia ??? Hypocalcemia ??? Epidural abscess ??? Dependence on renal dialysis (CMS Dx) ??? Disorder of phosphorus metabolism, unspecified ??? Discitis ??? Anaphylactic shock, unspecified, initial encounter ??? Altered mental state ??? Allergy, unspecified, initial encounter Past Medical History Past Medical History: Diagnosis [...] 05/29/2020 Procedure: EGD WITH BIOPSY; Surgeon: Rashid Winchester MD; Location: ENDOSCOPY; Service: Gastroenterology; Laterality: N/A; [...] PROCEDURE 10/2016 ??? TIPS Revision 04/2017 * Eneida Harish Mar, OT - 06/03/2020 2:33 PM EDT Occupational Therapy Treatment Name: Leoncio Rollins : 1975 Attending Physician: Aby Cavazos MD Admission Diagnosis: POST-OP INFECTION Date: 06/03/2020 Room: [facility] Reviewed Pertinent hospital course: Yes Hospital Course PT/OT: 45 y.o. M p/w weakness and back pain. PMH of liver cirrhosis s/p OLT (2016) and recent L4-5 discectomy and posterior decompression; 05/28-05/29: coffee ground emesis; MRI L spine (05/30): persistent osteomyelitis discitis at L4-5 with moderate ventral epidural abscess with some compression, neurosx consulted with conservative mgmt, 05/28 EGD with no active bleeding Activity Level: Activity as tolerated Recommendation Recommendation: Defer at this time Equipment Recommendations: Defer at this time Assessment Assessment: Decreased Functional Mobility, Decreased ADL status, Decreased Balance, Decreased self-care transfers, Decreased activity tolerance Prognosis for OT goals: Good Pt very limited by pain. Team made aware. Pt anxious and self limits at times Pt continues to benefit from OT intervention to maximize independence Continue with POC Outcome Measures AM-PAC 6 Clicks Daily Activity Inpatient Short Form: Cognition Cognitive Assessment: Following Commands;Safety Judgment;Insight Arousal/Alertness: Alert Orientation Level: Oriented X4 Behavior: Apprehensive Following Commands: Follows all commands and directions without difficulty(pt self limits at times ) Safety Judgment: Impaired judgment Insight: Demonstrated decreased insght into limitations and abilites to complete ADls safely Comments: Pt with decreased insight into role of therapy and importance of pushing through pain to attempt to increase mobilization. therapsists offered education at length re: pain optimization and pushing through pain to attempt to make progress but pt very apprehensive and hesitant Pain Pain Score: 8 Pain Location: Hip Pain Descriptors: Burning;Sharp Therapist reported pain to: tem and RN Exercises Functional Mobility Bed Mobility Rolling: Minimal assistance;towards the left;towards the right Supine to Sit: Moderate assistance;of 2 people Sit to Supine: Maximum assistance;of 2 people Functional Transfers Functional Mobility Comment: Pt sits at EOB approx 20-25 seconds Balance Sitting - Static: Moderate assistance Sitting - Dynamic: Maximum Assistance ADL Lower Body Dressing: Maximum assistance Lower Body Dressing Deficit: Don/doff R sock;Don/doff L sock Location Assessed LE Dressing: Supine in bed Toileting: Supervision Toileting Deficit: Use of bedpan/urinal setup Location Assessed Toileting: Supine in bed Additional Comments: Pt very limited by pain. Therapist spent time at length providing education and encouragement throughout session. Pt self limiting 2/2 pain and demo's regression throughout minorhints of progress in regards to functional mobility Position after Treatment/Safety Handoff Position after therapy session: Bed Details: Call light/ needs within reach;RN notified Alarms: Bed Alarms Status: Unchanged from previous setting Goals Goals to be met in: 1 week Patient stated goal: to return to baseline/PLOF Patient will complete supine to sit in prep for ADLs: Minimal assistance Patient will complete grooming task: Will tolerate assessment Patient will complete upper body dressing: Will tolerate assessment Patient will complete lower body dressing: Maximum assistance Clock Mechanic Goal : Pt will complete a functional OOB t/f in prep for ADL tasks. intermediate card tender goal to be met in: 2 weeks Collaborated with: Patient Plan Plan Treatment Interventions: ADL retraining, Activity Tolerance training, Functional transfer training,Patient/Family training, Fine motor coordination activities, Therapeutic Activity, UE strengthening/ROM, Neuro muscular reeducation, Compensatory technique education, Energy Conservation OT Frequency: minimum 3x/week The plan of care and recommendations assesses the patient's and/or caregiver's readiness, willingness, and ability to provide or support functional mobility and ADL tasks as needed upon discharge. Patient/Family Education Educated patient on the role of occupational therapy, OT goals, OT plan of care, discharge recommendation, ADL training and functional mobility training and fall prevention strategies including need for supervision/ assistance with OOB activity and use of call light. patient verbalized understanding and will need reinforcement. OT Time Start Time: 1325 Stop Time: 1422 Time Calculation (min): 57 min OT Charges $Self Care/ADL/Home Management Trainin-67 mins KODAK Bartlett/L, MOT [facility] Pager: Department Problem List Patient Active Problem List Diagnosis ??? Esophagitis ??? Essential (primary) hypertension ??? Type 2 diabetes mellitus with diabetic chronic kidney disease (CMS Dx) ??? Liver transplanted (CMS Dx) ??? Liver transplant recipient (CMS Dx) ??? Encounter for therapeutic drug level monitoring ??? Immunosuppression (CMS Dx) ??? Peripheral edema ??? Unstable angina pectoris (CMS Dx) ??? Abnormal stress test ??? History of liver transplant (CMS Dx) ??? ESRD (end stage renal disease) (CMS Dx) ??? Group C streptococcal infection ??? Cytomegaloviral disease, unspecified (CMS Dx) ??? Pre-op evaluation ??? Anemia, unspecified ??? Osteomyelitis (CMS Dx) ??? Other fatigue ??? Vitamin D deficiency, unspecified ??? Unspecified protein-calorie malnutrition (CMS Dx) ??? Sepsis (CMS Dx) ??? Secondary hyperparathyroidism of renal origin (CMS Dx) ??? Renal osteodystrophy ??? Other disorders of electrolyte and fluid balance, not elsewhere classified ??? Nausea ??? SAL (nonalcoholic steatohepatitis) ??? residential (current) use of insulin (CMS Dx) ??? Leukocytosis ??? Hyponatremia ??? Hypocalcemia ??? Epidural abscess ??? Dependence on renal dialysis (CMS Dx) ??? Disorder of phosphorus metabolism, unspecified ??? Discitis ??? Anaphylactic shock, unspecified, initial encounter ??? Altered mental state ??? Allergy, unspecified, initial encounter Past Medical History Past Medical History: Diagnosis [...] 05/29/2020 Procedure: EGD WITH BIOPSY; Surgeon: Rashid Winchester MD; Location: ENDOSCOPY; Service: Gastroenterology; Laterality: N/A; [...] PROCEDURE 10/2016 ??? TIPS Revision 04/2017 * Jay Day MD - 06/03/2020 12:30 PM EDT Department of Internal Medicine Daily Progress Note Chief Complaint / Reason for Follow-Up Leoncio Rollins Jr. is a 45 y.o. male with a history of ESRD on HD at home (MTuThFSa), SAL cirrhosis s/p liver transplant 2017, pulmonary HTN, JC, DM2, HTN, obesity presenting to the hospital as direct admission with complaint of subacute low back pain and weakness following spinal surgery. Interval History / Subjective - Went to IR for CT guided fluid aspiration -- 12 mL of purulent fluid were aspirated and sent for culture, will use to guide Abx selection - Could not tolerate full run of iHD yesterday d/t fistula issues ,US Fistula today - Still complaining of leg pain not improving with dilaudid Review of Systems (Focused) Review of Systems Constitutional: Negative for chills and fever. Respiratory: Negative for cough and shortness of breath. Cardiovascular: Negative for chest pain. Musculoskeletal: +leg pain Medications Scheduled Meds: ??? carBAMazepine 200 mg Oral Nightly (2099) ??? ceFEPime (MAXIPIME) IV extended infusion 1 g Intravenous Q24H ??? cycloSPORINE modified 50 mg Oral BID ??? entecavir 0.5 mg Oral Q7 Days ??? epoetin giancarlo-epbx 6,000 Units Subcutaneous Once per day on Mon ??? gabapentin 200 mg Oral Daily 0900 ??? hydrALAZINE 100 mg Oral 3 times per day ??? insulin lispro 0-5 Units Subcutaneous TID AC ??? lidocaine 1 patch Transdermal Q24H ??? melatonin 3 mg Oral Nightly (2099) ??? NIFEdipine 90 mg Oral BID ??? pantoprazole 40 mg Oral DAILY 0600 ??? polyethylene glycol 17 g Oral BID ??? quetiapine 12.5 mg Oral Nightly (2099) ??? senna-docusate 2 tablet Oral Nightly (2099) ??? terazosin 10 mg Oral Nightly (2099) Continuous Infusions: PRN Meds: acetaminophen, ALPRAZolam, dextrose 50 % in water (D50W) OR dextrose 50 % in water (D50W), glucose, HYDROmorphone, ondansetron, proMETHazine, vancomycin intermittent/pulse dosing PLACEHOLDER ORDER Vital Signs Temp: [97.9 ??F (36.6 ??C)-99.6 ??F (37.6 ??C)] 98.6 ??F (37 ??C) Heart Rate: [116-135] 116 Resp: [12-22] 18 BP: (123-177)/(68-104) 146/81 Intake/Output Summary (Last 24 hours) at 06/03/2020 1230 Last data filed at 06/03/2020 1135 Gross per 24 hour Intake 480 ml Output 300 ml Net 180 ml Physical Exam Vital signs reviewed. General: Age appropriate male, in no acute distress Heart: Regular rate and rhythm, no murmurs, rubs, gallops Lungs: Clear to auscultation bilaterally, no wheezes or rales, normal work of breathing Abdomen: Soft, obese, non-tender, non-distended, scar present from prior liver transplant Extremities: No clubbing, no edema, AVF present on L UE for dialysis with ice pack Skin: No rashes, no jaundice Neuro: AOx4, moves all 4 extremities, Strength decreased/limited due to pain at L hip, normal sensation of lower extremities, follows commands Psych: Alert and appropriate, normal affect Laboratory Data CBC 06/03/2020 \ 7.6 / 6.0 \ / 335 / \ / 23.1 \ Differential 06/02/2020 N 72.8 L 12.6 M 4.9 E 1.9 B 0.0 Renal 06/03/2020 138 98 56 / ___ __ / 113 \ 4.7 26 11.03 \ Ca 9.7 (06/03/2020) Mg 2.0 (06/03/2020) Phos 6.3 (06/03/2020) Lipids Lab Results Component Value Date CHOLTOT 236 (H) 01/27/2020 TRIG 303 (H) 01/27/2020 HDL 32 (L) 01/27/2020 LDL 143 01/27/2020 LFTs 06/02/2020 \ 0.4 / \ 0.11 / 13 \ / \ PT/INR/PTT - 06/02/2020 PT 16.3 INR 1.3 PTT 28.6 Lab Results Component Value Date TSH 3.59 01/27/2020 FREET4 1.03 10/20/2017 Lab 06/03/20 0933 06/02/20 2149 06/02/20 1850 06/02/20 1305 POC GLU MONITORING DEVICE 132* 139* 158* 199* Diagnostic Studies X-ray Comparison Images Final Result MRI Lumbar spine WO contrast Final Result IMPRESSION: 1. Transitional anatomy is noted at [...] a small postoperative seroma versus an abscess. Report Verified by: Leanna Wilks MD at 05/30/2020 9:05 PM EDT X-ray Chest PA or AP Final Result IMPRESSION: No acute cardiopulmonary abnormality. Report Verified by: Manolo Rosenthal MD at 05/29/2020 4:46 PM EDT X-ray Comparison Images Final Result X-ray Comparison Images Final Result X-ray Comparison Images Final Result Duplex Scan Hemodialysis Access (Results Pending) CT Lumbar WO at OSH: - postoperative changes realted to posterior decompressive resection at L5 - Findings suspicious for L5-S1 discitis and osteomyelitis. - Abnormal soft tissue and fluid density in posterior paraspinous tissues at L3- S1 with apparent extension into the central canal at L5 level, suspicious for soft tissue infection ?? Assessment & Plan Leoncio Rollins Jr. is a 45 y.o. male being admitted to the hospital for concern for osteomyelitis. Medical problems being addressed in this encounter include the following: ?? Principal Problem: Osteomyelitis (CMS Dx) Active Problems: Liver transplant recipient (CMS Dx) ?? #Osteomyelitis Patient with recent spinal surgery now with back pain, difficulty walking and imaging findings concerning for osteomyelitis and soft tissue infection. Patient neurologically in tact. Patient receivedone dose of vanc and zosyn at OSH. - vancomycin, cefepime to cover empirically - MRI WO Spine: osteomyelitis discitis again noted at L4-L5 with a moderate- sized epidural abscess,compressing the distal thecal sac. - Transplant ID consult, recommend to continue IV vanco + cefepime - spine surgery consult : No surgical intervention, recommend complete course of IV Abx unless patient develops acute neurologic red flag - blood cultures x2 : NG after 5 days - follow-up blood cultures at OSH - NG after 5 days - Dilaudid 0.5 Q6h PRN for pain, leg pain not improved, Pain management was consulted - Went to IR for CT guided fluid aspiration 06/03 -- 12 mL of purulent fluid were aspirated and sent for culture,to guide antibiotics regimen #Upper GI Bleed #Anemia of Chronic disease Patient had an episode of black emesis on 05/28. Hb 7.3 down of 7.9 on admission. He was started onIV PPI and transitioned to PO after EGD. -S\p EGD which showed large amount of coffee ground fluid in stomach and circumferential adenomatous mass-like lesion in the distal esophagus at the GE junction. Biopsied.??No e/o active bleeding. - patient Hb after iHD was found to be 6.2 so 2 unit of pRBC was transfused with improvement to 7.8 - Awaiting biopsy results - Trend Hb, transfuse if <7 #ESRD on iHD Patient dialyzes on , , , , at home with AVF in LUE. . Not eligible for transplant due to BMI >40. - On admission CBC, renal, Mg - BUN 88, K 5.5 - EKG without changes, no AMS - Nephrology consult for dialysis continuatio - on 06/01 Patient went for unsuccessful dialysis with reported clots coming from AVF - IR declot 06/02 w/plan to dialyze afterwards, Could not tolerate full run of iHD d/t fistula issues - US fistula today, will plan to iHD tomorrow #SAL Cirrhosis s/p liver transplant 2017 No acute decompensation. Patient follows with Dr. Ordoñez, last seen 12/2019. Previously on tacrolimus for IS but experienced AMS so switched to cyclosporine 50 mg BID and cellcept 250 mg BID - hepatic function panel, PT-INR, renal panel - liver consult : recomended stopping Cellcept, restarting home Cyclosporine 50 mg BID - lifelong entecavir 0.5 mg weekly due to high risk donor (HBV ALEXANDRA +, HCV Ab+, ALEXANDRA negative) - Continue to hold Cellcept. - Restart Cyclosporine 50 mg BID 05/29 MELD-Na score: 23 at 06/03/2020 5:04 AM Calculated from: Serum Creatinine: 11.03 mg/dL (Rounded to 4 mg/dL) at 06/03/2020 5:04 AM Serum Sodium: 138 mmol/L (Rounded to 137 mmol/L) at 06/03/2020 5:04 AM Total Bilirubin: 0.4 mg/dL (Rounded to 1 mg/dL) at 06/02/2020 4:07 AM INR(ratio): 1.3 at 06/02/2020 4:07 AM Age: 45 years #Type 2 Diabetes Mellitus Home regimen humalin 48u qAM, 24u nightly. Last HgA1c 6.9% 01/27/2020. - LDSSI - gabapentin and tegretol for neuropathy ?? #GERD - Continue home famotidine ?? #HTN On hydralazine TID, clonidine as needed on dialysis day, nifedipine BID, doxazosin at night - Restarted home hydralazine, nifedipine - hytrin (therapeutic interchange for doxazosin) ?? #Pulmonary Hypertension On echo 07/2019 - PAP estimated to be 50 mmg Hg, likely due to JC/OHS. - avoid hypoxia, NC as needed - appears euvolemic on exam ?? #JC - BiPAP at night ?? Nutrition: Diet Orders Diet consistent carb 60-75g/meal; renal starting at 06/03 1003 Code Status: Full Code Signed: JAY DAY MD 06/03/2020, 12:30 PM Cosigned by Aby Cavazos MD at 06/03/2020 1:41 PM EDT Associated attestation - Aby Cavazos MD - 06/03/2020 1:41 PM EDT INTERNAL MEDICINE ATTENDING PHYSICIAN ATTESTATION Leoncio Rollins Jr. was seen today on rounds with the team. I personally interviewed and examined the patient. I reviewed the documentation by the resident or medical student and agree as documented, except for additional comments or corrections listed below. Assessment and plan The patient disagrees with therapy's recommended disposition plan. Await culture of drained purulent fluid. Would be much easier to determine outgoing antibiotic regimen if agreeable to discharge to SNF, where he will be dialyzed three times weekly. Aby Cavazos MD Clinical Instructor Department of Internal Medicine 06/03/2020 1:39 PM * Cecelia Womack PharmD - 06/03/2020 8:38 AM EDT Images from the original note were not included. [facility] Clinical Pharmacy Service: Vancomycin Monitoring Consult Leoncio Rollins Jr. is a 45 y.o. male currently being treated for possible spinal osteo Patient is allergic to codeine sulfate and codeine. Pharmacy consulted for vancomycin management by Dr. Galvez. Current Anti-Infectives Dose Frequency Start End cefepime (MAXIPIME) 1 g in sodium chloride 0.9% 50 mL IVPB ADDaptor 1 g Every 24 hours 06/02/2020 Admin Instructions: For Hemodialysis patients - on dialysis days, please administer Cefepime dose after completion of hemodialysis.Use ADDaptor product - Mix Thoroughly Before Administration Route: Intravenous entecavir (BARACLUDE) tablet 0.5 mg 0.5 mg Every 7 days 06/02/2020 Admin Instructions: ADMINISTER ON EMPTY STOMACH (2 HOURS BEFORE OR AFTER MEALS).LEVEL 2 HAZARDOUS MEDICATION Route: Oral vancomycin (VANCOCIN) 1,250 mg in sodium chloride 0.9 % 250 mL IVPB (Completed) 10 mg/kg ?? 126.1 kg Once 06/02/2020 06/02/2020 Route: Intravenous vancomycin intermittent/pulse dosing PLACEHOLDER ORDER Use as directed PRN 05/28/2020 Admin Instructions: Patient is receiving intermittent/pulse vancomycin dosing based on random serumlevels. NOTE:This is NOT an active medication order. If a dose of vancomycin is needed, it must be entered as a one-time dose by physicians or pharmacists. Route: Intravenous documented within (last 72 hours) Date/Time Action Medication Dose Rate 06/02/20 1617 Given vancomycin (VANCOCIN) 1,250 mg in sodium chloride 0.9 % 250 mL IVPB 1,250 mg 200 mL/hr 06/01/20 1711 Hold [Per verbal order] vancomycin (VANCOCIN) 1,250 mg in sodium chloride 0.9 % 250 mL IVPB 0 mL/hr --Objective Data-- Vitals: 06/03/20 0604 06/03/20 0823 06/03/20 0829 06/03/20 0835 BP: 157/68 177/71 161/86 Pulse: 120 119 117 Resp: 14 14 12 Temp: TempSrc: SpO2: Weight: (!) 254 lb 3.2 oz (115.3 kg) Height: I/O last 3 completed shifts: In: 600 [P.O.:600] Out: 600 [Urine:600] WBC, BUN, Creatinine (Last 7 days) WBC BUN Creatinine 6.0 10E3/uL 06/03/20 0721 56 mg/dL 06/03/20 0504 11.03 mg/dL 06/03/20 0504 6.3 10E3/uL 06/02/20 0407 71 mg/dL 06/02/20 0407 12.81 mg/dL 06/02/20 0407 6.4 10E3/uL 06/01/20 0517 70 mg/dL 06/01/20 0517 11.79 mg/dL 06/01/20 0517 [place] body weight: 66.1 kg (145 lb 11.6 oz) Adjusted ideal body weight: 85.8 kg (189 lb 1.8 oz) ESRD on HD --Cultures-- Microbiology Results Date and Time Order Name Sensitivity Status Organisms Specimen ID Source 05/28/2020 1541 #1 Blood culture-Peripheral Final [id number] Peripheral 05/28/2020 1404 #2 Blood culture-Peripheral Final [id number] Peripheral --Vancomycin Concentrations-- Lab Results (Last 7 days) Vanc Rdm Vanc Tr 29.8 ug/mL 06/03/20 0504 17.7 ug/mL 06/01/20 0517 16.1 ug/mL 06/02/20 0407 22.9 ug/mL 05/30/20 1206 --Assessment and Plan-- ?? Patient is a 45 y.o. male being treated with vancomycin for possible spinal osteo. ?? Random vancomycin level 29.8 mg/L this AM. No doses today. ?? Goal vancomycin trough of 15-20 mg/L ?? Will check vancomycin serum concentration tomorrow AM prior to HD ?? Pharmacy will continue to monitor therapy for efficacy and toxicity. Thank you for the consult. Cecelia Womack PharmD, [facility] Clinical Lute Packer [facility] Internal Medicine/Diabetes Now Pager [phone] Office: [phone] Clinical Pharmacist On-Call Pager [phone] 06/03/2020 8:38 AM * Kimber Alcantar MD - 06/02/2020 5:15 PM EDT Transplant Nephrology Consult Follow Up Note Assessment/Plan: - ESRD on home HD 5 days/week. - will keep MWF schedule while inpatient - hemodynamically stable, labs & volume status acceptable - Anemia - on Epo SAL Cirrhosis s/p OLT in 2018 - MMF being held due to Osteomyelitis - on Cyclosporine Recommendations: Obtain US of AVF Plan for HD on unless an acute indication emerges. KIMBER ALCANTAR MD PGY4 Nephrology Fellow 06/02/2020 Discussed with Consult Staff Reason for Renal Consult : ESRD HPI Patient ESRD on HD at home (MTuThFSa), SAL cirrhosis s/p liver transplant 2018,??pulmonary HTN, JC, DM2, HTN, obesity admitted with complaint of subacute low back pain and weakness following spinalsurgery. ?? Patient underwent spinal surgery (lumbar laminectomy, discectomy and posterior decompression at L4-L5) at [facility] 04/29. Patient is having worsening back paina [facility] concerning for L5-S1 discitis and osteomyelitis with abnormal soft tissue and fluid density of posterior paraspinous tissues L3- S1 with apparent extension into the central canal at L5, suspicious for soft tissue infection. Interval History: - Fistula evaluated by IR today & cleared to be used for HD. - 1 hour into HD arterial & venous pressures spiked, RN noticed infiltration of AV fistula & treatment was stopped. - patient comfortable, without complaints. PHYSICAL EXAM Temp: [97.3 ??F (36.3 ??C)-99.3 ??F (37.4 ??C)] 99 ??F (37.2 ??C) Heart Rate: [71-135] 135 Resp: [10-23] 18 BP: (135-217)/(78-158) 174/91 Wt Readings from Last 3 Encounters: 05/28/20 (!) 278 lb (126.1 kg) 03/16/20 (!) 278 lb (126.1 kg) 03/12/20 (!) 278 lb (126.1 kg) Intake/Output Summary (Last 24 hours) at 06/02/2020 1715 Last data filed at 06/02/2020 1621 Gross per 24 hour Intake 460 ml Output 500 ml Net -40 ml General appearance: NAD Head: Normocephalic, atraumatic Mouth: moist mucus membranes Neck: Supple Lungs: diminished in the bases Heart: regular rate and rhythm Abdomen: soft, non-tender non-distended Extremities: trace LE edema Skin: No rashes MEDS Scheduled Meds: ??? carBAMazepine 200 mg Oral Nightly (2099) ??? ceFEPime (MAXIPIME) IV extended infusion 1 g Intravenous Q24H ??? cycloSPORINE modified 50 mg Oral BID ??? entecavir 0.5 mg Oral Q7 Days ??? [START ON 06/03/2020] epoetin giancarlo-epbx 6,000 Units Subcutaneous Once per day on Mon ??? gabapentin 200 mg Oral Daily 0900 ??? hydrALAZINE 100 mg Oral 3 times per day ??? insulin lispro 0-5 Units Subcutaneous TID AC ??? lidocaine 1 patch Transdermal Q24H ??? melatonin 3 mg Oral Nightly (2099) ??? NIFEdipine 90 mg Oral BID ??? pantoprazole 40 mg Oral DAILY 0600 ??? polyethylene glycol 17 g Oral BID ??? quetiapine 12.5 mg Oral Nightly (2099) ??? senna-docusate 2 tablet Oral Nightly (2099) ??? terazosin 10 mg Oral Nightly (2099) ??? vancomycin 10 mg/kg Intravenous Once Continuous Infusions: PRN Meds:.acetaminophen, ALPRAZolam, dextrose 50 % in water (D50W) OR dextrose 50 % in water (D50W), glucose, HYDROmorphone, ondansetron, proMETHazine, vancomycin intermittent/pulse dosing PLACEHOLDER ORDER DATA : Date 06/01/20 1500 - 06/02/2065806/02/20 0700 - 06/03/20 0659 Shift 7812-2067 1307-9703 24 Hour Total 8505-5616 9487-7601 2229-1152 24 Hour Total INTAKE P.O. 340 580 120 120 P.O. 340 580 120 120 Shift Total(mL/kg) 340(2.7) 580(4.6) 120(1) 120(1) OUTPUT Urine(mL/kg/hr) 100(0.1) 150(0) 300(0.3) 100 400 Urine 100 150 300 100 400 Urine Occurrence 1 x 1 x Emesis/NG output 0 0 Emesis 0 0 Emesis Occurrence 0 x 0 x Other 0 0 Net fluid removal (ml) 0 0 Stool 0 0 Stool Occurrence 0 x 0 x Stool 0 0 Shift Total(mL/kg) 100(0.8) 150(1.2) 300(2.4) 100(0.8) 400(3.2) Weight (kg) 126.1 126.1 126.1 126.1 126.1 126.1 126.1 Recent Labs 05/31/2042806/01/20 0517 06/02/20 0407 WBC 7.6 6.4 6.3 HGB 7.8* 7.4* 7.1* HCT 23.4* 22.0* 21.3* PLT 329 337 325 Recent Labs 05/31/2042806/01/20 0517 06/02/20 0407 NA 136 138 137 K 4.7 4.8 4.8 CL 97* 97* 98 CO2 26 23 23 BUN 64* 70* 71* CREATININE 10.62* 11.79* 12.81* GLUCOSE 127* 132* 132* Lab Results Component Value Date CREATININE 12.81 (H) 06/02/2020 BUN 71 (H) 06/02/2020 NA 137 06/02/2020 K 4.8 06/02/2020 CL 98 06/02/2020 CO2 23 06/02/2020 Lab Results Component Value Date PTH 164.0 (H) 01/14/2019 CALCIUM 9.6 06/02/2020 PHOS 7.4 (H) 06/02/2020 Lab Results Component Value Date DWLL76C 15.8 (L) 01/14/2019 Lab Results Component Value Date WBC 6.3 06/02/2020 HGB 7.1 (L) 06/02/2020 HCT 21.3 (L) 06/02/2020 MCV 90.5 06/02/2020 PLT 325 06/02/2020 Lab Results Component Value Date IRON 19 [...] evaluation and management of the patient on 06/02/2020. Cosigned by Rajwinder Polanco at 06/03/2020 3:59 PM EDT Associated attestation - Rajwinder Polanco - 06/03/2020 3:59 PM EDT I saw and evaluated the patient, and discussed with the resident on 06/02/2020. I agree with the resident???s findings and plan as documented in the resident???s note. * Tanyamaricruz Jackson, PT - 06/02/2020 4:18 PM EDT Physical Therapy Treatment Name: Leoncio Ivelisse Rollins Jr. : 1975 Attending Physician: Aby Cavazos MD Admission Diagnosis: POST-OP INFECTION Date: 06/02/2020 Room: 8024/U8024 Reviewed Pertinent hospital course: Yes Hospital Course PT/OT: 45 y.o. M p/w weakness and back pain. PMH of liver cirrhosis s/p OLT (2016) and recent L4-5 discectomy and posterior decompression; 05/28-05/29: coffee ground emesis; MRI L spine (05/30): persistent osteomyelitis discitis at L4-5 with moderate ventral epidural abscess with some compression, neurosx consulted with conservative mgmt, 05/28 EGD with no active bleeding Activity Level: Activity as tolerated Aide: Gem Watkins Pt tolerates PT session fair this date. Pt limited throughout session 2/2 anxiety regarding progression of mobility. Pt inquires and extensively education on PT POC and progression of mobility, risksof immobility, pain relieving techniques, diaphragmatic breathing. Frequent attempts made to complete supine to sit transfer throughout duration of session with increased pt apprehension as mobility is anticipated. Pt requests anxiety medication prior to mobility, RN notified and following, states that no medication is available at this time. Pt will continue to benefit from skilled therapy services to continue progressing assessment and assist in progression of mobility. Recommendation Recommendation: Short-term skilled PT Equipment Recommended: Defer until further assessment Outcome Measures AM-PAC 6 Clicks Basic Mobility Inpatient Short Form: PT 6 Clicks Score: 13 Mobility Recommendations for Staff Patient ability: Requires frequent repositioning (at least every 2 hours) Cognition Overall Cognitive Status: Within Functional Limits Arousal/Alertness: Alert Orientation Level: Oriented X4 Behavior: Appropriate;Cooperative;Apprehensive Following Commands: Follows all commands and directions without difficulty Comments: Pt very apprehensive regarding EOB or OOB mobility, anxiety increasing throughout duration of session and pt requesting medication. RN aware and monitoring., states that pt does not have medication available Pain Pain Score: 5 Pain Location: Leg Pain Descriptors: Aching Pain Intervention(s): Repositioned Mobility Bed Mobility Rolling: Minimal assistance;towards the left;towards the right Supine to Sit: (pt declines despite maximal education) Position after Treatment and Safety Handoff Position after therapy session: Bed(pt with MD upon PT departure) Details: Call light/ needs within reach Alarms: Bed Alarms Status: Unchanged from previous setting Goals Goals Met: None Goals to be met by: 06/05/20 Patient will transition from supine to sit: Will tolerate assessment Patient will transfer from sit to stand: Will tolerate assessment Patient will ambulate: Will tolerate assessment Pt Will report pain with functional mobility at: 11/21 or less Long-term goal to be met by: 06/12/20 Custodial Goal : = STG Patient Stated Goal #1: decreased pain Patient/Family Education Educated patient on the role of physical therapy, goals, plan of care and discharge recommendationsand fall prevention strategies, including use of call light; patient verbalized understanding. Plan Plan Treatment/Interventions: LE strengthening/ROM, Patient/family training, Gait training, Continued evaluation, Therapeutic Activity PT Frequency: minimum 2x/week The plan of care and recommendations assesses the patient's and/or caregiver's readiness, willingness, and ability to provide or support functional mobility and ADL tasks as needed upon discharge. Tanya Jackson PT [id number], DPT Pager: [phone] M-F: [phone] Time Start Time: 1431 Stop Time: 1529 Time Calculation (min): 58 min Charges $Therapeutic Activity: 4 units Problem List Patient Active Problem List Diagnosis ??? Esophagitis ??? Essential (primary) hypertension ??? Type 2 diabetes mellitus with diabetic chronic kidney disease (CMS Dx) ??? Liver transplanted (CMS Dx) ??? Liver transplant recipient (CMS Dx) ??? Encounter for therapeutic drug level monitoring ??? Immunosuppression (CMS Dx) ??? Peripheral edema ??? Unstable angina pectoris (CMS Dx) ??? Abnormal stress test ??? History of liver transplant (CMS Dx) ??? ESRD (end stage renal disease) (CMS Dx) ??? Group C streptococcal infection ??? Cytomegaloviral disease, unspecified (CMS Dx) ??? Pre-op evaluation ??? Anemia, unspecified ??? Osteomyelitis (CMS Dx) ??? Other fatigue ??? Vitamin D deficiency, unspecified ??? Unspecified protein-calorie malnutrition (CMS Dx) ??? Sepsis (CMS Dx) ??? Secondary hyperparathyroidism of renal origin (CMS Dx) ??? Renal osteodystrophy ??? Other disorders of electrolyte and fluid balance, not elsewhere classified ??? Nausea ??? SAL (nonalcoholic steatohepatitis) ??? intermediate card tender (current) use of insulin (CMS Dx) ??? Leukocytosis ??? Hyponatremia ??? Hypocalcemia ??? Epidural abscess ??? Dependence on renal dialysis (CMS Dx) ??? Disorder of phosphorus metabolism, unspecified ??? Discitis ??? Anaphylactic shock, unspecified, initial encounter ??? Altered mental state ??? Allergy, unspecified, initial encounter Past Medical History Past Medical History: Diagnosis [...] 05/29/2020 Procedure: EGD WITH BIOPSY; Surgeon: Rashid Winchester MD; Location: ENDOSCOPY; Service: Gastroenterology; Laterality: N/A; [...] PROCEDURE 10/2016 ??? TIPS Revision 04/2017 * Dave Dave MD - 06/02/2020 2:59 PM EDT Images from the original note were not included. INFECTIOUS DISEASE PROGRESS NOTE 06/02/2020 2:59 PM Leoncio Rollins Jr. is a 45 y.o. male patient. Hospital Day: 5 Chief Complaint/Reason for Follow-up: RODNEY epidural abscess and diskitis at L5 in liver xplant recipient Subjective: Attempting to work with PT today but reluctant to try to sit up. Still having significant lumber and left leg pain. Review of Systems Constitutional: Negative for chills, diaphoresis, fatigue and fever. Respiratory: Negative for cough and shortness of breath. Cardiovascular: Negative for leg swelling. Gastrointestinal: Negative for abdominal pain, diarrhea, nausea and vomiting. Musculoskeletal: Positive for back pain and gait problem. L leg weakness Skin: Negative for rash. Neurological: Positive for weakness. Objective: Vital signs: Vitals: 06/02/20 1306 BP: (!) 162/104 Pulse: 131 Resp: 18 Temp: 98.4 ??F (36.9 ??C) SpO2: 90% Temp last 24 hours:Temp (24hrs), Av.3 ??F (36.8 ??C), Min:97.3 ??F (36.3 ??C), Max:99.3 ??F (37.4 ??C) Scheduled Meds: ??? carBAMazepine 200 mg Oral Nightly (2099) ??? ceFEPime (MAXIPIME) IV extended infusion 1 g Intravenous Q24H ??? cycloSPORINE modified 50 mg Oral BID ??? entecavir 0.5 mg Oral Q7 Days ??? [START ON 06/03/2020] epoetin giancarlo-epbx 6,000 Units Subcutaneous Once per day on Mon ??? gabapentin 200 mg Oral Daily 0900 ??? hydrALAZINE 100 mg Oral 3 times per day ??? insulin lispro 0-5 Units Subcutaneous TID AC ??? lidocaine 1 patch Transdermal Q24H ??? melatonin 3 mg Oral Nightly (2099) ??? NIFEdipine 90 mg Oral BID ??? pantoprazole 40 mg Oral DAILY 0600 ??? polyethylene glycol 17 g Oral BID ??? quetiapine 12.5 mg Oral Nightly (2099) ??? senna-docusate 2 tablet Oral Nightly (2099) ??? terazosin 10 mg Oral Nightly (2099) ??? vancomycin 10 mg/kg Intravenous Once Continuous Infusions: PRN Meds:acetaminophen, ALPRAZolam, dextrose 50 % in water (D50W) OR dextrose 50 % in water (D50W), glucose, HYDROmorphone, ondansetron, proMETHazine, vancomycin intermittent/pulse dosing PLACEHOLDER ORDER Intake/Output last 3 shifts: Date 06/01/20 07 - 06/02/20 0659 06/02/20699 - 06/03/20 0659 Shift 0666-0059 8448-7649 5644-5266 24 Hour Total 8864-8785 8711-7999 3079-2073 24 Hour Total INTAKE P.O. 240 340 580 P.O. 240 340 580 Shift Total(mL/kg) 240(1.9) 340(2.7) 580(4.6) OUTPUT Urine(mL/kg/hr) 50(0) 100(0.1) 150(0) 300 300 Urine 50 100 150 300 300 Urine Occurrence 0 x 1 x 1 x Emesis/NG output 0 0 0 Emesis 0 0 0 Emesis Occurrence 0 x 0 x 0 x Other 0 0 Net fluid removal (ml) 0 0 Stool 0 0 0 Stool Occurrence 0 x 0 x 0 x Stool 0 0 0 Shift Total(mL/kg) 50(0.4) 100(0.8) 150(1.2) 300(2.4) 300(2.4) Weight (kg) 126.1 126.1 126.1 126.1 126.1 126.1 126.1 126.1 Physical Exam Vitals signs and nursing note reviewed. Constitutional: General: He is not in acute distress. Appearance: He is obese. He is ill-appearing. He is not diaphoretic. Cardiovascular: Rate and Rhythm: Regular rhythm. Tachycardia present. Heart sounds: Murmur (systolic) present. Pulmonary: Effort: Pulmonary effort is normal. Abdominal: Tenderness: There is no right CVA tenderness or left CVA tenderness. Musculoskeletal: Right lower leg: No edema. Left lower leg: No edema. Comments: Band of tenderness across lower lumbar area. Skin: General: Skin is warm and dry. Findings: No rash. Comments: L forearm AV fistula is bruised, warm and swollen Neurological: Mental Status: He is alert. Labs: Lab 06/02/20406 WBC 6.3 HEMOGLOBIN 7.1* HEMATOCRIT 21.3* MEAN CORPUSCULAR VOLUME 90.5 PLATELETS 325 Lab 06/02/20406 SODIUM 137 POTASSIUM 4.8 CHLORIDE 98 CO2 23 BUN 71* CREATININE 12.81* GLUCOSE 132* CALCIUM 9.6 MAGNESIUM 2.0 PHOSPHORUS 7.4* Lab 06/02/20406 ALK PHOS 77 AST 13 ALT 10 BILIRUBIN TOTAL 0.4 BILIRUBIN DIRECT 0.11 Lab 06/02/20406 PROTHROMBIN TIME 16.3* INR 1.3* Results for LEONCIO ROLLINS JR. ( ) as of 06/01/2020 16:30 Ref. Range 05/28/2020 15:41 05/30/2020 12:06 06/01/2020 05:17 Vancomycin Random Latest Units: ug/mL 16.3 22.9 Vancomycin Tr Latest Ref Range: 10.0 - 20.0 ug/mL 17.7 Microbiology Results Date and Time Order Name Sensitivity Status Organisms Specimen ID Source 05/28/2020 1541 #1 Blood culture-Peripheral Preliminary [id number] Peripheral 05/28/2020 1404 #2 Blood culture-Peripheral Preliminary [id number] Peripheral Assessment/Plan: Principal Problem: Osteomyelitis ([facility] Dx) Active Problems: Esophagitis Liver transplanted ([facility] Dx) Liver transplant recipient ([facility] Dx) Immunosuppression ([facility] Dx) History of liver transplant ([facility] Dx) ESRD (end stage renal disease) ([facility] Dx) Anemia, unspecified Leoncio Rollisn Jr. is a 45 y.o. male with a history of DM2, JC, PAH, and SAL cirrhosis s/p OLT inFebruary 2018 - donor HBV+ and HCV Ab +. On cellcept + cyclosporine (AMS on tacro) + entecavir. Developed LBP in early April followed by fever - found to have L5 discities with epidural abscess s/p L4-L5 laminectomy/discectomy 04/29/20. Cultures positive for MRSE. Treated with vancomycin inpatient until 05/13/20 then vancomycin with HD. Has not been out of bed since going home and insurance will no longer pain for ambulance to HD. Has been on doxycycline PO and linezolid since 05/26/20. Presented [facility] with worsening back pain and had CT lumbar spine concerning for L5-S1 discitis and OM with abnormal soft tissue and fluid density of posterior paraspinous L3-S1 tissues with extension into central canal at L5. Transferred to [facility] on 05/28/20. 1) Disicitis/ OM - ?? Continue IV vancomycin, cefepime ?? MATHEW consulted - recommended no surgical intervention & to consult IR ?? IR consulted for possible sample - possible aspiration of paraspinal lumbar fluid on 06/03 ?? Will follow culture results if able to get sample - if no new infection, would deescalate cefepime. ?? May not be able to use vanc post-HD if he dialyzes at home. Will continue to follow. Dave Dave MD 06/02/2020 cell [phone] pager The HPI, ROS, physical exam, test results, and assessment & plan were reviewed and copied forward (with edits) from a note written by Nadya Devries MD on 06/01/20. I have reviewed and updated thehistory, physical exam, data, assessment, and plan of the note so that it reflects my evaluation and management of the patient. * Cecelia Womack PharmD - 06/02/2020 9:45 AM EDT Clinical Pharmacy Note - Vancomycin For some reason patient did not receive vancomycin dose as ordered last evening. Level still therapeutic this AM however (16.1 mg/L). Will go ahead and reschedule dose for this afternoon. If gets HD,should be after HD. If not, still ok to give. Random level tomorrow AM. Cecelia Womack PharmD, BCPS Clinical [facility] Pager [phone] Office: [phone] Clinical Pharmacist On-Call Pager [phone] * María Galvez MD - 06/02/2020 6:08 AM EDT Department of Internal Medicine Daily Progress Note Chief Complaint / Reason for Follow-Up Leoncio Rollins Jr. is a 45 y.o. male with a history of ESRD on HD at home ([facility]), SAL cirrhosis s/p liver transplant 2018, pulmonary HTN, JC, DM2, HTN, obesity presenting to the hospital as direct admission with complaint of subacute low back pain and weakness following spinal surgery. Interval History / Subjective - Went to IR for fistula declot this AM - In dialysis today, could not tolerate full run d/t fistula issues - CD images of prior L-spine MRI uploaded to PACS - Still complaining of back pain Review of Systems (Focused) Review of Systems Constitutional: Negative for chills and fever. Respiratory: Negative for cough and shortness of breath. Cardiovascular: Negative for chest pain. Musculoskeletal: +leg pain Medications Scheduled Meds: ??? carBAMazepine 200 mg Oral Nightly (2099) ??? ceFEPime (MAXIPIME) IV extended infusion 1 g Intravenous Q24H ??? cycloSPORINE modified 50 mg Oral BID ??? entecavir 0.5 mg Oral Q7 Days ??? [START ON 06/03/2020] epoetin giancarlo-epbx 6,000 Units Subcutaneous Once per day on Mon ??? gabapentin 200 mg Oral Daily 0900 ??? hydrALAZINE 100 mg Oral 3 times per day ??? insulin lispro 0-5 Units Subcutaneous TID AC ??? lidocaine 1 patch Transdermal Q24H ??? melatonin 3 mg Oral Nightly (2099) ??? NIFEdipine 30 mg Oral BID ??? pantoprazole 40 mg Oral DAILY 0600 ??? polyethylene glycol 17 g Oral BID ??? quetiapine 12.5 mg Oral Nightly (2099) ??? senna-docusate 2 tablet Oral Nightly (2099) ??? terazosin 10 mg Oral Nightly (2099) ??? vancomycin 10 mg/kg Intravenous Once Continuous Infusions: PRN Meds: acetaminophen, ALPRAZolam, dextrose 50 % in water (D50W) OR dextrose 50 % in water (D50W), glucose, HYDROmorphone, ondansetron, proMETHazine, vancomycin intermittent/pulse dosing PLACEHOLDER ORDER Vital Signs Temp: [98.2 ??F (36.8 ??C)-99.3 ??F (37.4 ??C)] 98.2 ??F (36.8 ??C) Heart Rate: [113-126] 117 Resp: [17-19] 19 BP: (151-195)/(81-105) 168/103 Intake/Output Summary (Last 24 hours) at 06/02/2020 0608 Last data filed at 06/01/2020 2200 Gross per 24 hour Intake 580 ml Output 150 ml Net 430 ml Physical Exam Vital signs reviewed. General: Age appropriate male, in no acute distress Heart: Regular rate and rhythm, no murmurs, rubs, gallops Lungs: Clear to auscultation bilaterally, no wheezes or rales, normal work of breathing Abdomen: Soft, obese, non-tender, non-distended, scar present from prior liver transplant Extremities: No clubbing, no edema, AVF present on L UE for dialysis with ice pack Skin: No rashes, no jaundice Neuro: AOx4, moves all 4 extremities, Strength decreased/limited due to pain at L hip, normal sensation of lower extremities, follows commands Psych: Alert and appropriate, normal affect Laboratory Data CBC 06/02/2020 \ 7.1 / 6.3 \ / 325 / \ / 21.3 \ Differential 06/01/2020 N 80.6 L 9.7 M 2.0 E 3.9 B 0.0 Renal 06/02/2020 137 98 71 / ___ __ / 132 \ 4.8 23 12.81 \ Ca 9.6 (06/02/2020) Mg 2.0 (06/02/2020) Phos 7.4 (06/02/2020) Lipids Lab Results Component Value Date CHOLTOT 236 (H) 01/27/2020 TRIG 303 (H) 01/27/2020 HDL 32 (L) 01/27/2020 LDL 143 01/27/2020 LFTs 06/02/2020 \ 0.4 / \ 0.11 / 13 \ \ PT/INR/PTT - 06/02/2020 PT 16.3 INR 1.3 PTT 28.6 Lab Results Component Value Date TSH 3.59 01/27/2020 FREET4 1.03 10/20/2017 Lab 06/01/20 1750 06/01/20 1127 05/31/20 2200 05/31/20 1809 POC GLU MONITORING DEVICE 153* 144* 188* 133* Diagnostic Studies X-ray Comparison Images Final Result MRI Lumbar spine WO contrast Final Result IMPRESSION: 1. Transitional anatomy is noted at [...] a small postoperative seroma versus an abscess. Report Verified by: Leanna Wilks MD at 05/30/2020 9:05 PM EDT X-ray Chest PA or AP Final Result IMPRESSION: No acute cardiopulmonary abnormality. Report Verified by: Manolo Rosenthal MD at 05/29/2020 4:46 PM EDT X-ray Comparison Images Final Result X-ray Comparison Images Final Result X-ray Comparison Images Final Result CT Lumbar WO at OSH: - postoperative changes realted to posterior decompressive resection at L5 - Findings suspicious for L5-S1 discitis and osteomyelitis. - Abnormal soft tissue and fluid density in posterior paraspinous tissues at L3- S1 with apparent extension into the central canal at L5 level, suspicious for soft tissue infection ?? Assessment & Plan Leoncio Rollins Jr. is a 45 y.o. male being admitted to the hospital for concern for osteomyelitis. Medical problems being addressed in this encounter include the following: ?? Principal Problem: Osteomyelitis ([facility] Dx) Active Problems: Liver transplant recipient ([facility] Dx) ?? #Concern for Osteomyelitis Patient with recent spinal surgery now with back pain, difficulty walking and imaging findings concerning for osteomyelitis and soft tissue infection. Patient neurologically in tact. Patient receivedone dose of vanc and zosyn at OSH. - vancomycin, cefepime to cover empirically - MRI WO Spine: osteomyelitis discitis again noted at L4-L5 with a moderate- sized epidural abscess,compressing the distal thecal sac. - Transplant ID consult, recommend to continue IV vanco + cefepime - spine surgery consult : No surgical intervention, recommend complete course of IV Abx unless patient develops acute neurologic red flag - blood cultures x2 : NGTD - follow-up blood cultures at OSH - NGTD - Dilaudid 0.5 Q6h PRN for pain - IR consulted for fluid sampling to guide antibiotics regimen #Upper GI Bleed Patient had an episode of black emesis on 05/28. Hb 7.3 down of 7.9 on admission. He was started onIV PPI and transitioned to PO after EGD. -S\p EGD which showed large amount of coffee ground fluid in stomach and circumferential adenomatous mass-like lesion in the distal esophagus at the GE junction. Biopsied.??No e/o active bleeding. - patient Hb after iHD was found to be 6.2 so 2 unit of pRBC was transfused with improvement to 7.8 - Awaiting biopsy results - Trend Hb, transfuse if <7 #ESRD on iHD Patient dialyzes on , , , , at home with AVF in E. . Not eligible for transplant due to BMI >40. - On admission CBC, renal, Mg - BUN 88, K 5.5 - EKG without changes, no AMS - Nephrology consult for dialysis continuatio - on 06/01 Patient went for unsuccessful dialysis with reported clots coming from AVF - IR declot 06/02 w/plan to dialyze afterwards #SAL Cirrhosis s/p liver transplant 2017 No acute decompensation. Patient follows with Dr. Ordoñez, last seen 12/2019. Previously on tacrolimus for IS but experienced AMS so switched to cyclosporine 50 mg BID and cellcept 250 mg BID - hepatic function panel, PT-INR, renal panel - liver consult : recomended stopping Cellcept, restarting home Cyclosporine 50 mg BID - lifelong entecavir 0.5 mg weekly due to high risk donor (HBV ALEXANDRA +, HCV Ab+, ALEXANDRA negative) - Continue to hold Cellcept. - Restart Cyclosporine 50 mg BID 05/29 MELD-Na score: 23 at 06/02/2020 4:07 AM Calculated from: Serum Creatinine: 12.81 mg/dL (Rounded to 4 mg/dL) at 06/02/2020 4:07 AM Serum Sodium: 137 mmol/L at 06/02/2020 4:07 AM Total Bilirubin: 0.4 mg/dL (Rounded to 1 mg/dL) at 06/02/2020 4:07 AM INR(ratio): 1.3 at 06/02/2020 4:07 AM Age: 45 years #Type 2 Diabetes Mellitus Home regimen humalin 48u qAM, 24u nightly. Last HgA1c 6.9% 01/27/2020. - LDSSI - gabapentin and tegretol for neuropathy ?? #GERD - Continue home famotidine ?? #HTN On hydralazine TID, clonidine as needed on dialysis day, nifedipine BID, doxazosin at night - Restarted home hydralazine, nifedipine - hytrin (therapeutic interchange for doxazosin) ?? #Pulmonary Hypertension On echo 07/2019 - PAP estimated to be 50 mmg Hg, likely due to JC/OHS. - avoid hypoxia, NC as needed - appears euvolemic on exam ?? #JC - BiPAP at night ?? Nutrition: Diet Orders Diet NPO past midnight starting at 06/01 576 Code Status: Full Code Signed: MARÍA GALVEZ MD 06/02/2020, 6:08 AM Cosigned by Aby Cavazos MD at 06/02/2020 6:07 PM EDT Associated attestation - Aby Cavazos MD - 06/02/2020 6:07 PM EDT INTERNAL MEDICINE ATTENDING PHYSICIAN ATTESTATION Leoncio Rollins Jr. was seen today on rounds with the team. I personally interviewed and examined the patient. I reviewed the documentation by the resident or medical student and agree as documented, except for additional comments or corrections listed below. Assessment and plan IR to sample epidural abscess to help determine antibiotic regimen. In the context of unique home HD schedule, anticipate difficulty selecting antibiotics that will be covered by insurance. Aby Cavazos MD Clinical Instructor Department of Internal Medicine 06/02/2020 6:04 PM * Nadya Devries MD - 06/01/2020 4:17 PM EDT INFECTIOUS DISEASE PROGRESS NOTE 06/01/2020 4:18 PM Leoncio Rollins Jr. is a 45 y.o. male patient. Hospital Day: 4 Chief Complaint/Reason for Follow-up: RODNEY epidural abscess and diskitis at L5 in liver xplant recipient Subjective: Lower lumbar and L leg pain, unchanged. Incomplete HD today due to thrombosis of L arm AVF. NPO for?repeat imaging. DM2, JC, PAH, and SAL cirrhosis s/p OLT in Sep 2017; donor was HBV ALEXANDRA+, HCV Ab+, ALEXANDRA neg. ??He take cellcept + cyclosporine (AMS on tacro) + entecavir. ESRD on HD since Jul 2019, he needs to lose weight to be listed for renal xplant (BMI = 43). ??Hosp Jul 2019 for GBS bacteremia, presumptive source CMV esophagitis, Rx'd PO valGCV. Shingles in November 2019. Hosp in Mar for HTN elsewhere. Had L arm fistula placed, started using it early Apr and R tunneled HD cath removed. He c/o sudden onset LBP early Apr, followed by fevers, had L5 discitis with epidural abscess, s/p L4-5 laminectomy, discectomy and posterior decompression on Apr (1 of 2 op cx grew MRSE, S clinda, tcn, T/S, levofloxacin, linezolid, and rifampin). His blood cultures were negative. He rc'd vanco while inpt until Apr, and discharge orders indicate he rc'd 750 mg IV vanco after HD ([facility] in [place] ). His sts he has not been out of bed since coming home, c/o LBP, ambulance took him to and from HD on ~3 occasions, then his insurance stopped paying for ambulance rides, and he was unable to go to HD. He tried dialyzing at home, but got a large bruise, so stopped. Took doxycycline POsince discharge, and also linezolid starting May.. ?? May went to [facility] ED for recurrent LBP and weakness, transferred here because CT lumbar spine demonstrated findings concerning for L5-S1 discitis and osteomyelitis with abnormal soft tissue and fluid density of posterior paraspinous tissues L3-S1 with apparent extension into the central canal at L5, suspicious for soft tissue infection. Today is #5 of Vanco + cefepime. His brought CD's with outside images with her today. ?? Review of Systems Constitutional: Negative for chills, diaphoresis, fatigue and fever. Respiratory: Negative for cough and shortness of breath. Cardiovascular: Negative for leg swelling. Gastrointestinal: Negative for abdominal pain, diarrhea, nausea and vomiting. Musculoskeletal: Positive for back pain and gait problem. L leg weakness Skin: Negative for rash. Neurological: Positive for weakness. Objective: Vital signs: Vitals: 06/01/20 1256 BP: (!) 166/94 Pulse: 124 Resp: 19 Temp: 99.3 ??F (37.4 ??C) SpO2: 94% Temp last 24 hours:Temp (24hrs), Av.7 ??F (37.1 ??C), Min:98.4 ??F (36.9 ??C), Max:99.3 ??F (37.4 ??C) Scheduled Meds: ??? carBAMazepine 200 mg Oral Nightly (2099) ??? ceFEPime (MAXIPIME) IV extended infusion 1 g Intravenous Q24H ??? cycloSPORINE modified 50 mg Oral BID ??? [START ON 06/02/2020] entecavir 0.5 mg Oral Q7 Days ??? [START ON 06/03/2020] epoetin giancarlo-epbx 6,000 Units Subcutaneous Once per day on Mon ??? gabapentin 200 mg Oral Daily 0900 ??? insulin lispro 0-5 Units Subcutaneous TID AC ??? lidocaine 1 patch Transdermal Q24H ??? melatonin 3 mg Oral Nightly (2099) ??? NIFEdipine 30 mg Oral BID ??? pantoprazole 40 mg Oral DAILY 0600 ??? polyethylene glycol 17 g Oral BID ??? quetiapine 12.5 mg Oral Nightly (2099) ??? senna-docusate 2 tablet Oral Nightly (2099) ??? terazosin 10 mg Oral Nightly (2100) ??? vancomycin 10 mg/kg Intravenous Once Continuous Infusions: PRN Meds:acetaminophen, ALPRAZolam, dextrose 50 % in water (D50W) OR dextrose 50 % in water (D50W), glucose, HYDROmorphone, ondansetron, proMETHazine, vancomycin intermittent/pulse dosing PLACEHOLDER ORDER Intake/Output last 3 shifts: Date 05/31/20 1500 - 06/01/2065806/01/20 0700 - 06/02/20 0659 Shift 1289-9315 7220-4828 24 Hour Total 5698-7363 9124-2923 2217-1301 24 Hour Total INTAKE P.O. 240 240 P.O. 240 240 Shift Total(mL/kg) 240(1.9) 240(1.9) OUTPUT Urine(mL/kg/hr) 50(0) 50(0) 50 Urine 50 50 50 Urine Occurrence 0 x 0 x 0 x Emesis/NG output 0 0 Emesis 0 0 Emesis Occurrence 0 x 0 x 0 x Stool 0 0 Stool Occurrence 1 x 0 x 0 x Stool 0 0 Shift Total(mL/kg) 50(0.4) 50(0.4) 50(0.4) Weight (kg) 126.1 126.1 126.1 126.1 126.1 126.1 126.1 Physical Exam Vitals signs and nursing note reviewed. Constitutional: General: He is not in acute distress. Appearance: He is obese. He is ill-appearing. He is not diaphoretic. Cardiovascular: Rate and Rhythm: Regular rhythm. Tachycardia present. Heart sounds: No murmur. Pulmonary: Effort: Pulmonary effort is normal. Abdominal: Tenderness: There is no right CVA tenderness or left CVA tenderness. Musculoskeletal: Right lower leg: No edema. Left lower leg: No edema. Comments: Band of tenderness across lower lumbar area. Good ROM both legs, no hyperreflexia Skin: General: Skin is warm and dry. Findings: No rash. Comments: L forearm AV fistula is bruised, warm and swollen Neurological: Mental Status: He is alert. Labs: Lab 06/01/20 0517 WBC 6.4 HEMOGLOBIN 7.4* HEMATOCRIT 22.0* MEAN CORPUSCULAR VOLUME 91.6 PLATELETS 337 Lab 06/01/20 0517 SODIUM 138 POTASSIUM 4.8 CHLORIDE 97* CO2 23 BUN 70* CREATININE 11.79* GLUCOSE 132* CALCIUM 9.5 MAGNESIUM 2.0 PHOSPHORUS 7.0* Lab 06/01/20 0517 ALK PHOS 73 AST 13 ALT 11 BILIRUBIN TOTAL 0.4 BILIRUBIN DIRECT 0.02 Lab 06/01/20516 PROTHROMBIN TIME 15.9* INR 1.2* Results for LEONCIO ROLLINS JR. ( ) as of 06/01/2020 16:30 Ref. Range 05/28/2020 15:41 05/30/2020 12:06 06/01/2020 05:17 Vancomycin Random Latest Units: ug/mL 16.3 22.9 Vancomycin Tr Latest Ref Range: 10.0 - 20.0 ug/mL 17.7 Microbiology Results Date and Time Order Name Sensitivity Status Organisms Specimen ID Source 05/28/2020 1541 #1 Blood culture-Peripheral Preliminary [id number] Peripheral 05/28/2020 1404 #2 Blood culture-Peripheral Preliminary [id number] Peripheral Assessment/Plan: Principal Problem: Osteomyelitis (CMS Dx) Active Problems: Esophagitis Liver transplanted (CMS Dx) Liver transplant recipient (CMS Dx) Immunosuppression (CMS Dx) History of liver transplant (CMS Dx) ESRD (end stage renal disease) (CMS Dx) Anemia, unspecified Continue IV vanco + cefepime pending comparison of images. If new infection, and MATHEW defers op mgmt, please ask IR to sample for cultures. If no evidence of new infection, can stop cefepime. However,he has missed many doses of IV vanco, so will need to reset clock for his vancomycin duration Unfortunately, may not be able to use IV vanco post-HD if he dialyzes at home, he prefers 5 sessions/week. Doesn't sound like Medicare/Medicaid would pay for dalbavancin or oritivancin. Transplant ID will continue to follow. Please call with questions Nadya Devries MD 06/01/2020 dig [phone] cell This note was copied forward from the note written by myself on 31 May 2020. I have reviewed and updated the history, physical exam, data, assessment and plan of the note so that it reflects the evaluation and management of the patient on 01 June 2020. * Brandy Rivera OT - 06/01/2020 3:00 PM EDT Occupational Therapy & Physical Therapy Reason Patient Not Seen Name: Leoncio Rollins Jr. : 1975 Attending Physician: Aby Cavazos MD Admission Diagnosis: POST-OP INFECTION Date: 06/01/2020 Precautions: Reviewed Pertinent hospital course: Yes Unable to see patient due to: Therapy attempted to see pt at 1430 with pt off the floor at echo. Will follow-up with pt as medically appropriate and as therapy schedule permits. Thanks, Brandy Rivera MS, OTR/L [facility] Pager #: [phone] Department #: [phone] Hours: [id number] * Kimber Alcantar MD - 06/01/2020 12:06 PM EDT Transplant Nephrology Consult Follow Up Note Assessment/Plan: - ESRD on home HD 5 days/week. - will keep MWF schedule while inpatient (last HD 05/29) - unable to dialyze today due to clotting of AVF - IR contacted for fistulagram today - hemodynamically stable, labs & volume status acceptable - Anemia - unable to obtain outpatient Epo dose. SAL Cirrhosis s/p OLT in 2018 - MMF being held due to Osteomyelitis - on Cyclosporine Recommendations: IR Fistulagram today, HD tomorrow. Will obtain iron studies & start Retacrit 6000 units TIW. KIMBER ALCANTAR MD PGY4 Nephrology Fellow 06/01/2020 Discussed with Consult Staff Reason for Renal Consult : ESRD HPI Patient ESRD on HD at home ([facility]), SAL cirrhosis s/p liver transplant 2018,??pulmonary HTN, JC, DM2, HTN, obesity admitted with complaint of subacute low back pain and weakness following spinalsurgery. ?? Patient underwent spinal surgery (lumbar laminectomy, discectomy and posterior decompression at L4-L5) at [facility] 04/29. Patient is having worsening back paina [facility] concerning for L5-S1 discitis and osteomyelitis with abnormal soft tissue and fluid density of posterior paraspinous tissues L3- S1 with apparent extension into the central canal at L5, suspicious for soft tissue infection. Interval History: - unable to access AV fistula during HD today due to blood clots, IR contacted for fistulagram. - comfortable, without complaints at this time. PHYSICAL EXAM Temp: [98.4 ??F (36.9 ??C)-98.7 ??F (37.1 ??C)] 98.4 ??F (36.9 ??C) Heart Rate: [108-123] 123 Resp: [16-19] 19 BP: (142-167)/(81-88) 167/81 Wt Readings from Last 3 Encounters: 05/28/20 (!) 278 lb (126.1 kg) 03/16/20 (!) 278 lb (126.1 kg) 03/12/20 (!) 278 lb (126.1 kg) Intake/Output Summary (Last 24 hours) at 06/01/2020 1206 Last data filed at 06/01/2020 0812 Gross per 24 hour Intake -- Output 25 ml Net -25 ml General appearance: NAD Head: Normocephalic, atraumatic Mouth: moist mucus membranes Neck: Supple Lungs: diminished in the bases Heart: regular rate and rhythm Abdomen: soft, non-tender non-distended Extremities: trace LE edema Skin: No rashes MEDS Scheduled Meds: ??? carBAMazepine 200 mg Oral Nightly (2099) ??? ceFEPime (MAXIPIME) IV extended infusion 1 g Intravenous Q24H ??? cycloSPORINE modified 50 mg Oral BID ??? [START ON 06/02/2020] entecavir 0.5 mg Oral Q7 Days ??? gabapentin 200 mg Oral Daily 0900 ??? heparin 5,000 Units Subcutaneous 3 times per day ??? insulin lispro 0-5 Units Subcutaneous TID AC ??? lidocaine 1 patch Transdermal Q24H ??? melatonin 3 mg Oral Nightly (2099) ??? pantoprazole 40 mg Oral DAILY 0600 ??? polyethylene glycol 17 g Oral BID ??? quetiapine 12.5 mg Oral Nightly (2099) ??? senna-docusate 2 tablet Oral Nightly (2099) ??? terazosin 10 mg Oral Nightly (2099) ??? vancomycin 10 mg/kg Intravenous Once Continuous Infusions: PRN Meds:.acetaminophen, ALPRAZolam, dextrose 50 % in water (D50W) OR dextrose 50 % in water (D50W), glucose, HYDROmorphone, ondansetron, proMETHazine, vancomycin intermittent/pulse dosing PLACEHOLDER ORDER DATA : Date 05/31/20 07 - 06/01/2065806/01/20699 - 06/02/20 0659 Shift 8003-0901 1347-2698 9537-6079 24 Hour Total 7924-4106 6737-8903 7991-5995 24 Hour Total INTAKE Shift Total(mL/kg) OUTPUT Urine(mL/kg/hr) 50(0) 50(0) 25 25 Urine 50 50 25 25 Urine Occurrence 0 x 0 x Emesis/NG output Emesis Occurrence 0 x 0 x Stool Stool Occurrence 1 x 1 x Shift Total(mL/kg) 50(0.4) 50(0.4) 25(0.2) 25(0.2) Weight (kg) 126.1 126.1 126.1 126.1 126.1 126.1 126.1 126.1 Recent Labs 05/30/20 2333 05/31/20 0429 06/01/20 0517 WBC 9.5 7.6 6.4 HGB 7.7* 7.8* 7.4* HCT 24.1* 23.4* 22.0* PLT 369 329 337 Recent Labs 05/30/20 1206 05/31/20 0429 06/01/20 0517 NA 137 136 138 K 4.8 4.7 4.8 CL 96* 97* 97* CO2 25 26 23 BUN 56* 64* 70* CREATININE 10.01* 10.62* 11.79* GLUCOSE 112* 127* 132* Lab Results Component Value Date CREATININE 11.79 (H) 06/01/2020 BUN 70 (H) 06/01/2020 NA 138 06/01/2020 K 4.8 06/01/2020 CL 97 (L) 06/01/2020 CO2 23 06/01/2020 Lab Results Component Value Date PTH 164.0 (H) 01/14/2019 CALCIUM 9.5 06/01/2020 PHOS 7.0 (H) 06/01/2020 Lab Results Component Value Date QAZJ22H 15.8 (L) 01/14/2019 Lab Results Component Value Date WBC 6.4 06/01/2020 HGB 7.4 (L) 06/01/2020 HCT 22.0 (L) 06/01/2020 MCV 91.6 06/01/2020 PLT 337 06/01/2020 Lab Results Component Value Date IRON 24 (L) 07/21/2019 TIBC 202 (L) 07/21/2019 FERRITIN 433.9 (H) 07/21/2019 Lab Results Component Value Date KETONESU Negative [...] evaluation and management of the patient on 06/01/2020. Cosigned by Rajwinder Polanco at 06/01/2020 1:13 PM EDT Associated attestation - Rajwinder Polanco - 06/01/2020 1:13 PM EDT I saw and evaluated the patient, and discussed with the resident. I agree with the resident???s findings and plan as documented in the resident???s note. ESRD, clots pulled during cannulation. IR notifed. Will do IHD after access function is established * Wilmer Syed RN - 06/01/2020 11:43 AM EDT Attempted to cannulate LLF fistula- clotts pulled from art and venous sites- Dr Polanco Notified- HD cancelled today - Pressure dressing applied to LLF fistula- canulation sites mod edematous- ice applied to sites- * Cecelia Womack, PharmD - 06/01/2020 9:14 AM EDT Images from the original note were not included. [facility] Clinical Pharmacy Service: Vancomycin Monitoring Consult Leoncio Rollins Jr. is a 45 y.o. male currently being treated for possible spinal osteo Patient is allergic to codeine sulfate and codeine. Pharmacy consulted for vancomycin management by Dr. Galvez. Current Anti-Infectives Dose Frequency Start End cefepime (MAXIPIME) 1 g in sodium chloride 0.9% 50 mL IVPB ADDaptor 1 g Every 24 hours 05/28/2020 Admin Instructions: For Hemodialysis patients - on dialysis days, please administer Cefepime dose after completion of hemodialysis.Use ADDaptor product - Mix Thoroughly Before Administration Route: Intravenous entecavir (BARACLUDE) tablet 0.5 mg 0.5 mg Every 7 days 06/02/2020 Admin Instructions: ADMINISTER ON EMPTY STOMACH (2 HOURS BEFORE OR AFTER MEALS).LEVEL 2 HAZARDOUS MEDICATION Route: Oral vancomycin (VANCOCIN) 1,250 mg in sodium chloride 0.9 % 250 mL IVPB 10 mg/kg ?? 126.1 kg Once 06/01/2020 06/02/2020 Route: Intravenous vancomycin intermittent/pulse dosing PLACEHOLDER ORDER Use as directed PRN 05/28/2020 Admin Instructions: Patient is receiving intermittent/pulse vancomycin dosing based on random serumlevels. NOTE:This is NOT an active medication order. If a dose of vancomycin is needed, it must be entered as a one-time dose by physicians or pharmacists. Route: Intravenous documented within (last 72 hours) None --Objective Data-- Vitals: 05/31/20 1937 06/01/20 0002 06/01/20 0419 06/01/20 0812 BP: 156/88 142/81 151/87 167/81 Pulse: 116 111 116 123 Resp: Temp: 98.7 ??F (37.1 ??C) 98.5 ??F (36.9 ??C) 98.7 ??F (37.1 ??C) 98.4 ??F (36.9 ??C) TempSrc: Oral Oral Oral Oral SpO2: 94% 95% 97% 91% Weight: I/O last 3 completed shifts: In: - Out: 50 [Urine:50] WBC, BUN, Creatinine (Last 7 days) WBC BUN Creatinine 6.4 10E3/uL 06/01/20 0517 70 mg/dL 06/01/20 0517 11.79 mg/dL 06/01/20 0517 7.6 10E3/uL 05/31/20 0429 64 mg/dL 05/31/20 0429 10.62 mg/dL 05/31/20 0429 9.5 10E3/uL 05/30/20 2333 56 mg/dL 05/30/20 1206 10.01 mg/dL 05/30/20 1206 [place] body weight: 66.1 kg (145 lb 11.6 oz) Adjusted ideal body weight: 90.1 kg (198 lb 10.2 oz) ESRD on HD --Cultures-- Microbiology Results Date and Time Order Name Sensitivity Status Organisms Specimen ID Source 05/28/2020 1541 #1 Blood culture-Peripheral Preliminary [id number] Peripheral 05/28/2020 1404 #2 Blood culture-Peripheral Preliminary [id number] Peripheral --Vancomycin Concentrations-- Lab Results (Last 7 days) Vanc Rdm Vanc Tr 22.9 ug/mL 05/30/20 1206 17.7 ug/mL 06/01/20 0517 16.3 ug/mL 05/28/20 1541 --Assessment and Plan-- ?? Patient is a 45 y.o. male being treated with vancomycin for possible spinal osteo. ?? Random vancomycin level 17.7 mg/L this AM. Will give 1250 mg after HD this afternoon ?? Goal vancomycin trough of 15-20 mg/L ?? Will check vancomycin serum concentration tomorrow AM ?? Of note, patient has not missed any vancomycin doses this admission. Levels have remained > 15 mg/L. Dosing has been variable due to HD schedule. ?? Pharmacy will continue to monitor therapy for efficacy and toxicity. Thank you for the consult. Cecelia Womack, PharmD, BCPS Clinical [facility] Pager [phone] Office: [phone] Clinical Pharmacist On-Call Pager [phone] 06/01/2020 9:14 AM * Jay Day MD - 06/01/2020 6:31 AM EDT Department of Internal Medicine Daily Progress Note Chief Complaint / Reason for Follow-Up Leoncio Rollins Jr. is a 45 y.o. male with a history of ESRD on HD at home ([facility]), SAL cirrhosis s/p liver transplant 2018, pulmonary HTN, JC, DM2, HTN, obesity presenting to the hospital as direct admission with complaint of subacute low back pain and weakness following spinal surgery. Interval History / Subjective - Patient was again tearful about his lack of ability to walk due to the back pain. and he said would like to talk to Neurosurgery about his treatment course. - He was upset his leg pain not being managed well overnight. - Planned iHD today, failed due to AVF dysfunction, IR Consulted for fistulagram with possible declot. - CRP trending up. Review of Systems (Focused) Review of Systems Constitutional: Negative for chills, fever and malaise/fatigue. HENT: Negative for congestion, ear discharge and hearing loss. Eyes: Negative for blurred vision, pain and discharge. Respiratory: Negative for cough, sputum production and shortness of breath. Cardiovascular: Negative for chest pain, palpitations and leg swelling. Gastrointestinal: Negative for abdominal pain, diarrhea, nausea and vomiting. Genitourinary: Negative for dysuria, frequency and urgency. Musculoskeletal: Positive for bilateral leg pain. Negative for falls, myalgias and neck pain. Skin: Negative for itching and rash. Neurological: Negative for sensory change, focal weakness and loss of consciousness. Medications Scheduled Meds: ??? carBAMazepine 200 mg Oral Nightly (2100) ??? ceFEPime (MAXIPIME) IV extended infusion 1 g Intravenous Q24H ??? cycloSPORINE modified 50 mg Oral BID ??? [START ON 06/02/2020] entecavir 0.5 mg Oral Q7 Days ??? gabapentin 200 mg Oral Daily 0900 ??? heparin 5,000 Units Subcutaneous 3 times per day ??? insulin lispro 0-5 Units Subcutaneous TID AC ??? lidocaine 1 patch Transdermal Q24H ??? melatonin 3 mg Oral Nightly (2099) ??? pantoprazole 40 mg Oral DAILY 0600 ??? polyethylene glycol 17 g Oral BID ??? quetiapine 12.5 mg Oral Nightly (2099) ??? senna-docusate 2 tablet Oral Nightly (2099) ??? terazosin 10 mg Oral Nightly (2099) ??? vancomycin 10 mg/kg Intravenous Once Continuous Infusions: PRN Meds: acetaminophen, ALPRAZolam, dextrose 50 % in water (D50W) OR dextrose 50 % in water (D50W), glucose, HYDROmorphone, ondansetron, proMETHazine, vancomycin intermittent/pulse dosing PLACEHOLDER ORDER Vital Signs Temp: [98.4 ??F (36.9 ??C)-98.7 ??F (37.1 ??C)] 98.4 ??F (36.9 ??C) Heart Rate: [108-123] 123 Resp: [16-19] 19 BP: (142-167)/(81-88) 167/81 Intake/Output Summary (Last 24 hours) at 06/01/2020 1126 Last data filed at 06/01/2020 0812 Gross per 24 hour Intake -- Output 25 ml Net -25 ml Physical Exam Vital signs reviewed. General: Well appearing, age appropriate male, in no acute distress JOLATNA: Normocephalic, atraumatic, PERRL, EOMs intact Neck: No JVD, trachea midline Heart: Regular rate and rhythm, no murmurs, rubs, gallops Lungs: Clear to auscultation bilaterally, no wheezes or rales, normal work of breathing Back: Symmetric, no CVA tenderness, no spinal or paraspinal tenderness Abdomen: Soft, obese, non-tender, non-distended, scar present from prior liver transplant Extremities: No clubbing, no edema, AVF present on L UE for dialysis, thrill auscultated Skin: No rashes, no wounds, no jaundice Neuro: AOx4, moves all 4 extremities, 5/5 strength in flexion/extension of knee, dorsiflexion and plantarflexion, Strength 3/5 in hip flexion limited due to pain, normal sensation of lower extremities, follows commands Psych: Alert and appropriate, normal affect Laboratory Data CBC 06/01/2020 \ 7.4 / 6.4 \ / 337 / \ / 22.0 \ Differential 06/01/2020 N 80.6 L 9.7 M 2.0 E 3.9 B 0.0 Renal 06/01/2020 138 97 70 / ___ __ / 132 \ 4.8 23 11.79 \ Ca 9.5 (06/01/2020) Mg 2.0 (06/01/2020) Phos 7.0 (06/01/2020) Lipids Lab Results Component Value Date CHOLTOT 236 (H) 01/27/2020 TRIG 303 (H) 01/27/2020 HDL 32 (L) 01/27/2020 LDL 143 01/27/2020 LFTs 06/01/2020 \ 0.4 / \ 0.02 / 13 \ / 11 / \ / 73 \ PT/INR/PTT - 06/01/2020 PT 15.9 INR 1.2 PTT 28.6 Lab Results Component Value Date TSH 3.59 01/27/2020 FREET4 1.03 10/20/2017 Lab 05/31/20 2200 05/31/20 1809 05/31/20 1304 05/31/20 0810 POC GLU MONITORING DEVICE 188* 133* 150* 133* Diagnostic Studies MRI Lumbar spine WO contrast Final Result IMPRESSION: 1. Transitional anatomy is noted at [...] a small postoperative seroma versus an abscess. Report Verified by: Leanna Wilks MD at 05/30/2020 9:05 PM EDT X-ray Chest PA or AP Final Result IMPRESSION: No acute cardiopulmonary abnormality. Report Verified by: Manolo Rosenthal MD at 05/29/2020 4:46 PM EDT X-ray Comparison Images Final Result X-ray Comparison Images Final Result X-ray Comparison Images Final Result CT Lumbar WO at OSH: - postoperative changes realted to posterior decompressive resection at L5 - Findings suspicious for L5-S1 discitis and osteomyelitis. - Abnormal soft tissue and fluid density in posterior paraspinous tissues at L3- S1 with apparent extension into the central canal at L5 level, suspicious for soft tissue infection ?? Assessment & Plan Leoncio Rollins Jr. is a 45 y.o. male being admitted to the hospital for concern for osteomyelitis. Medical problems being addressed in this encounter include the following: ?? Principal Problem: Osteomyelitis (CMS Dx) Active Problems: Liver transplant recipient (CMS Dx) ?? #Concern for Osteomyelitis Patient with recent spinal surgery now with back pain, difficulty walking and imaging findings concerning for osteomyelitis and soft tissue infection. Patient neurologically in tact. Patient receivedone dose of vanc and zosyn at OSH. ESR 62, CRP 190. - vancomycin, cefepime to cover empirically - MRI WO Spine: osteomyelitis discitis again noted at L4-L5 with a moderate- sized epidural abscess,compressing the distal thecal sac. - Transplant ID consult, recommend to continue IV vanco + cefepime pending comparison of images. Ifnew infection, and MATHEW defers op mgmt, please ask IR to sample for cultures. If no evidence of new infection, can stop cefepime. However, he has missed many doses of IV vanco, so will need to reset clock for his vancomycin duration, but after dissuasion with Pharmacy and ID - spine surgery consult : No surgical intervention, trend ESR,CRP, Working on getting MRI imaging from [facility]. - blood cultures x2 : NGTD - follow-up blood cultures at OSH - NGTD - Dilaudid 0.3 Q6h PRN for pain #Possible Upper GI Bleed Patient had an episode of black emesis on 05/28. Hb 7.3 down of 7.9 on admission. He was started onIV PPI and transitioned to PO after EGD. -S\p EGD which showed large amount of coffee ground fluid in stomach and circumferential adenomatous mass-like lesion in the distal esophagus at the GE junction. Biopsied.??No e/o active bleeding. Patient vomited and had to be intubated in the endo suit for a short while, before being extubated to 2L NC. - patient Hb after iHD was found to be 6.2 so 2 unit of pRBC was transfused with improvement to 7.8 - Follow up with Biopsy - Trend Hb, transfuse if <7 #ESRD on iHD Patient dialyzes on , , , , at home with AVF in E. Last dialysis on Monday and he was having issues with the machine and could not complete full run. Not eligible for transplant due to BMI >40. - On admission CBC, renal, Mg - BUN 88, K 5.5 - EKG without changes, no AMS - Nephrology consult for dialysis continuation, recommended iHD today 05/29 - CMV PCR pending , CMV IgM/IgG Ab positive - on 06/01 Patient went for unsuccessful dialysis today with reported clots coming from AVF, IR Consulted for fistulagram with possible declot. Last successful dialysis 05/29/20. #SAL Cirrhosis s/p liver transplant 2017 No acute decompensation. Patient follows with Dr. Ordoñez, last seen 12/2019. Previously on tacrolimus for IS but experienced AMS so switched to cyclosporine 50 mg BID and cellcept 250 mg BID - hepatic function panel, PT-INR, renal panel - liver consult : recomended stopping Cellcept, restarting home Cyclosporine 50 mg BID - lifelong entecavir 0.5 mg weekly due to high risk donor (HBV ALEXANDRA +, HCV Ab+, ALEXANDRA negative) - Continue to hold Cellcept. - Restart Cyclosporine 50 mg BID 05/29 MELD-Na score: 22 at 06/01/2020 5:17 AM Calculated from: Serum Creatinine: 11.79 mg/dL (Rounded to 4 mg/dL) at 06/01/2020 5:17 AM Serum Sodium: 138 mmol/L (Rounded to 137 mmol/L) at 06/01/2020 5:17 AM Total Bilirubin: 0.4 mg/dL (Rounded to 1 mg/dL) at 06/01/2020 5:17 AM INR(ratio): 1.2 at 06/01/2020 5:17 AM Age: 45 years #Type 2 Diabetes Mellitus Home regimen humalin 48u qAM, 24u nightly. Last HgA1c 6.9% 01/27/2020. - HDSSI, for now ACHS fingersticks - gabapentin and tegretol for neuropathy ?? #GERD - Continue home famotidine ?? #HTN On hydralazine TID, clonidine as needed on dialysis day, nifedipine BID, doxazosin at night - Holding hydralazine, nifedipine in the setting of infection - hytrin (therapeutic interchange for doxazosin) ?? #Pulmonary Hypertension On echo 07/2019 - PAP estimated to be 50 mmg Hg, likely due to JC/OHS. - avoid hypoxia, NC as needed - appears euvolemic on exam - BiPAP at night ?? #JC - BiPAP at night ?? Nutrition: Diet Orders Diet consistent carb 60g/meal starting at 05/30 1725 Code Status: Full Code Signed: JAY DAY MD 06/01/2020, 11:26 AM Cosigned by Aby Cavazos MD at 06/01/2020 11:36 AM EDT Associated attestation - Aby Cavazos MD - 06/01/2020 11:36 AM EDT INTERNAL MEDICINE ATTENDING PHYSICIAN ATTESTATION Leoncio Oviedo Eh Marques was seen today on rounds with the team. I personally interviewed and examined the patient. I reviewed the documentation by the resident or medical student and agree as documented, except for additional comments or corrections listed below. Assessment and plan Ms. Rollins plans to bring a CD today containing OSH imaging to guide treatment of osteomyelitis. Aby Cavazos MD Clinical Instructor Department of Internal Medicine 06/01/2020 11:35 AM * Kylee Shipley RRT - 05/31/2020 9:56 PM EDT Patient on 3L NC for the night, states he wishes to wait until friend or family can bring his home BiPAP tomorrow. Hospital unit at bedside in case patient wants to try our machine tonight. * Nadya Devries MD - 05/31/2020 2:35 PM EDT INFECTIOUS DISEASE PROGRESS NOTE 05/31/2020 2:35 PM Leoncio Rollins Jr. is a 45 y.o. male patient. Hospital Day: 3 Chief Complaint/Reason for Follow-up: RODNEY epidural abscess and diskitis at L5 in liver xplant recipient Subjective: Lower lumbar and L leg pain, unchanged. DM2, JC, PAH, and SAL cirrhosis s/p OLT in Sep 2017; donor was HBV ALEXANDRA+, HCV Ab+, ALEXANDRA neg. ??He take cellcept + cyclosporine (AMS on tacro) + entecavir. ESRD on HD since Jul 2019, he needs to lose weight to be listed for renal xplant (BMI = 43). ??Hosp Jul 2019 for GBS bacteremia, presumptive source CMV esophagitis, Rx'd PO valGCV. Shingles in November 2019. Hosp in Mar for HTN elsewhere. Had L arm fistula placed, started using it early Apr and R tunneled HD cath removed. He c/o sudden onset LBP early Apr, followed by fevers, had L5 discitis with epidural abscess, s/p L4-5 laminectomy, discectomy and posterior decompression on Apr (1 of 2 op cx grew MRSPravin, S clinda, tcn, and T/S). His blood cultures were negative. He rc'd vanco while inpt until Apr, and discharge orders indicate he rc'd 750 mg IV vanco after HD ([facility] in [place] ). His sts he has notbeen out of bed since coming home, c/o LBP, ambulance took him to and from HD on 3 occasions, then his insurance stopped paying for ambulance rides, and he was unable to get to HD. Taking doxycyclinePO since discharge, and also linezolid since last week. ?? May went to [facility] ED for recurrent LBP and weakness, transferred here because CT lumbar spine demonstrated findings concerning for L5-S1 discitis and osteomyelitis with abnormal soft tissue and fluid density of posterior paraspinous tissues L3-S1 with apparent extension into the central canal at L5, suspicious for soft tissue infection. Vanco + cefepime started here. ?? Review of Systems Constitutional: Negative for chills, diaphoresis, fatigue and fever. Respiratory: Negative for cough and shortness of breath. Cardiovascular: Negative for leg swelling. Gastrointestinal: Negative for abdominal pain, diarrhea, nausea and vomiting. Musculoskeletal: Positive for back pain and gait problem. L leg weakness Skin: Negative for rash. Neurological: Positive for weakness. Objective: Vital signs: Vitals: 05/31/20 1230 BP: 152/85 Pulse: 108 Resp: 18 Temp: 98.4 ??F (36.9 ??C) SpO2: 96% Temp last 24 hours:Temp (24hrs), Av.7 ??F (37.1 ??C), Min:98.3 ??F (36.8 ??C), Max:99.5 ??F (37.5 ??C) Scheduled Meds: ??? carBAMazepine 200 mg Oral Nightly (2099) ??? ceFEPime (MAXIPIME) IV extended infusion 1 g Intravenous Q24H ??? cycloSPORINE modified 50 mg Oral BID ??? [START ON 06/02/2020] entecavir 0.5 mg Oral Q7 Days ??? heparin 5,000 Units Subcutaneous 3 times per day ??? insulin lispro 0-5 Units Subcutaneous TID AC ??? lidocaine 1 patch Transdermal Q24H ??? melatonin 3 mg Oral Nightly (2099) ??? pantoprazole 40 mg Oral DAILY 06 ??? polyethylene glycol 17 g Oral BID ??? quetiapine 12.5 mg Oral Nightly (2099) ??? senna-docusate 2 tablet Oral Nightly (2099) ??? terazosin 10 mg Oral Nightly (2099) Continuous Infusions: PRN Meds:acetaminophen, ALPRAZolam, dextrose 50 % in water (D50W) OR dextrose 50 % in water (D50W), glucose, ondansetron, oxyCODONE OR oxyCODONE, proMETHazine, vancomycin intermittent/pulse dosing PLACEHOLDER ORDER Intake/Output last 3 shifts: Date 05/30/20699 - 05/31/2065805/31/20 07 - 06/01/20 0659 Shift 3422-9979 0719-2317 1224-0681 24 Hour Total 8903-9410 4861-7165 8865-4074 24 Hour Total INTAKE Shift Total(mL/kg) OUTPUT Urine(mL/kg/hr) 50 50 Urine 50 50 Urine Occurrence 0 x 0 x Emesis/NG output Emesis Occurrence 0 x 0 x Stool Stool Occurrence 1 x 1 x 2 x 1 x 1 x Shift Total(mL/kg) 50(0.4) 50(0.4) Weight (kg) 126.1 126.1 126.1 126.1 126.1 126.1 126.1 126.1 Physical Exam Vitals signs and nursing note reviewed. Constitutional: General: He is not in acute distress. Appearance: He is obese. He is ill-appearing. He is not diaphoretic. Cardiovascular: Rate and Rhythm: Tachycardia present. Heart sounds: No murmur. Pulmonary: Effort: Pulmonary effort is normal. Breath sounds: Normal breath sounds. Abdominal: Tenderness: There is no right CVA tenderness or left CVA tenderness. Musculoskeletal: Right lower leg: No edema. Left lower leg: No edema. Comments: Band of tenderness across lower lumbar area, no hyperrelfexia Skin: General: Skin is warm and dry. Findings: No rash. Neurological: Mental Status: He is alert. Labs: Lab 05/31/20428 WBC 7.6 HEMOGLOBIN 7.8* HEMATOCRIT 23.4* MEAN CORPUSCULAR VOLUME 91.6 PLATELETS 329 Lab 05/31/20428 SODIUM 136 POTASSIUM 4.7 CHLORIDE 97* CO2 26 BUN 64* CREATININE 10.62* GLUCOSE 127* CALCIUM 9.2 MAGNESIUM 2.0 PHOSPHORUS 6.8* Lab 05/31/20428 ALK PHOS 74 AST 11* ALT 14 BILIRUBIN TOTAL 0.4 BILIRUBIN DIRECT 0.10 Lab 05/31/20428 PROTHROMBIN TIME 17.0* INR 1.4* Assessment/Plan: Principal Problem: Osteomyelitis ([facility] Dx) Active Problems: Esophagitis Liver transplanted ([facility] Dx) Liver transplant recipient ([facility] Dx) Immunosuppression ([facility] Dx) History of liver transplant ([facility] Dx) ESRD (end stage renal disease) ([facility] Dx) Anemia, unspecified Continue IV vanco + cefepime pending comparison of images. If new infection, and MATHEW defers op mgmt, please ask IR to sample for cultures. If no evidence of new infection, can stop cefepime. However,he has missed many doses of IV vanco, so will need to reset clock for his vancomycin duration Left message with pharmacy and spoke with [facility] about missed IV vanco dose after HD on . Will continue to follow. Please call with questions Nadya Devries MD 05/31/2020 [facility] [phone] cell * Jay Day MD - 05/31/2020 11:33 AM EDT Department of Internal Medicine Daily Progress Note Chief Complaint / Reason for Follow-Up Leoncio Rollins Jr. is a 45 y.o. male with a history of ESRD on HD at home ([facility]), SAL cirrhosis s/p liver transplant 2017, pulmonary HTN, JC, DM2, HTN, obesity presenting to the hospital as direct admission with complaint of subacute low back pain and weakness following spinal surgery. Interval History / Subjective - Patient was tearful about his lack of ability to walk due to the back pain. He reported that he had an episode of bowel incontinence yesterday. - HR 130s since today AM, EKG consistent with Sinus tach, V5-V6 T wave inversions. Patinent with nochest pain or shortness of breath. Review of Systems (Focused) Review of Systems Constitutional: Negative for chills, fever and malaise/fatigue. HENT: Negative for congestion, ear discharge and hearing loss. Eyes: Negative for blurred vision, pain and discharge. Respiratory: Negative for cough, sputum production and shortness of breath. Cardiovascular: Negative for chest pain, palpitations and leg swelling. Gastrointestinal: Negative for abdominal pain, diarrhea, nausea and vomiting. Genitourinary: Negative for dysuria, frequency and urgency. Musculoskeletal: Positive for bilateral leg pain. Negative for falls, myalgias and neck pain. Skin: Negative for itching and rash. Neurological: Negative for sensory change, focal weakness and loss of consciousness. Medications Scheduled Meds: ??? carBAMazepine 200 mg Oral Nightly (2100) ??? ceFEPime (MAXIPIME) IV extended infusion 1 g Intravenous Q24H ??? cycloSPORINE modified 50 mg Oral BID ??? [START ON 06/02/2020] entecavir 0.5 mg Oral Q7 Days ??? heparin 5,000 Units Subcutaneous 3 times per day ??? insulin lispro 0-5 Units Subcutaneous TID AC ??? lidocaine 1 patch Transdermal Q24H ??? melatonin 3 mg Oral Nightly (2099) ??? pantoprazole 40 mg Oral DAILY 0600 ??? polyethylene glycol 17 g Oral BID ??? quetiapine 12.5 mg Oral Nightly (2099) ??? senna-docusate 2 tablet Oral Nightly (2099) ??? terazosin 10 mg Oral Nightly (2099) Continuous Infusions: PRN Meds: acetaminophen, ALPRAZolam, dextrose 50 % in water (D50W) OR dextrose 50 % in water (D50W), glucose, ondansetron, oxyCODONE OR oxyCODONE, proMETHazine, vancomycin intermittent/pulse dosing PLACEHOLDER ORDER Vital Signs Temp: [98.3 ??F (36.8 ??C)-100.2 ??F (37.9 ??C)] 98.3 ??F (36.8 ??C) Heart Rate: [102-132] 132 Resp: [16-20] 18 BP: (118-163)/(55-98) 155/86 Intake/Output Summary (Last 24 hours) at 05/31/2020 1145 Last data filed at 05/31/2020 0855 Gross per 24 hour Intake -- Output 50 ml Net -50 ml Physical Exam Vital signs reviewed. General: Well appearing, age appropriate male, in no acute distress JOLANTA: Normocephalic, atraumatic, PERRL, EOMs intact Neck: No JVD, trachea midline Heart: Regular rate and rhythm, no murmurs, rubs, gallops Lungs: Clear to auscultation bilaterally, no wheezes or rales, normal work of breathing Back: Symmetric, no CVA tenderness, no spinal or paraspinal tenderness Abdomen: Soft, obese, non-tender, non-distended, scar present from prior liver transplant Extremities: No clubbing, no edema, AVF present on L UE for dialysis, thrill auscultated Skin: No rashes, no wounds, no jaundice Neuro: AOx4, moves all 4 extremities, 5/5 strength in flexion/extension of knee, dorsiflexion and plantarflexion, Strength 3/5 in hip flexion limited due to pain, normal sensation of lower extremities, follows commands Psych: Alert and appropriate, normal affect Laboratory Data CBC 05/31/2020 \ 7.8 / 7.6 \ / 329 / \ / 23.4 \ Differential 05/31/2020 N 78.0 L 12.4 M 7.2 E 2.2 B 0.2 Renal 05/31/2020 136 97 64 / ___ __ / 127 \ 4.7 26 10.62 \ Ca 9.2 (05/31/2020) Mg 2.0 (05/31/2020) Phos 6.8 (05/31/2020) Lipids Lab Results Component Value Date CHOLTOT 236 (H) 01/27/2020 TRIG 303 (H) 01/27/2020 HDL 32 (L) 01/27/2020 LDL 143 01/27/2020 LFTs 05/31/2020 \ 0.4 / \ 0.10 / 11 \ / 14 / \ / 74 \ PT/INR/PTT - 05/31/2020 PT 17.0 INR 1.4 PTT 28.6 Lab Results Component Value Date TSH 3.59 01/27/2020 FREET4 1.03 10/20/2017 Lab 05/31/20 0810 05/30/20 2236 05/30/20 1619 05/30/20 1033 POC GLU MONITORING DEVICE 133* 114* 100 134* Diagnostic Studies MRI Lumbar spine WO contrast Final Result IMPRESSION: 1. Transitional anatomy is noted at [...] a small postoperative seroma versus an abscess. Report Verified by: Leanna Wilks MD at 05/30/2020 9:05 PM EDT X-ray Chest PA or AP Final Result IMPRESSION: No acute cardiopulmonary abnormality. Report Verified by: Manolo Rosenthal MD at 05/29/2020 4:46 PM EDT X-ray Comparison Images Final Result X-ray Comparison Images Final Result X-ray Comparison Images Final Result CT Lumbar WO at OSH: - postoperative changes realted to posterior decompressive resection at L5 - Findings suspicious for L5-S1 discitis and osteomyelitis. - Abnormal soft tissue and fluid density in posterior paraspinous tissues at L3- S1 with apparent extension into the central canal at L5 level, suspicious for soft tissue infection ?? Assessment & Plan Leoncio Rollins Jr. is a 45 y.o. male being admitted to the hospital for concern for osteomyelitis. Medical problems being addressed in this encounter include the following: ?? Principal Problem: Osteomyelitis ([facility] Dx) Active Problems: Liver transplant recipient ([facility] Dx) ?? #Concern for Osteomyelitis Patient with recent spinal surgery now with back pain, difficulty walking and imaging findings concerning for osteomyelitis and soft tissue infection. Patient neurologically in tact. Patient receivedone dose of vanc and zosyn at OSH. ESR 62, CRP 190. - vancomycin, cefepime to cover empirically - MRI WO Spine: osteomyelitis discitis again noted at L4-L5 with a moderate- sized epidural abscess,compressing the distal thecal sac. - transplant ID consult, recommend containing empric therapy pending MRI result - spine surgery consult : No surgical intervention, trend ESR,CRP - blood cultures x2 : NGTD - follow-up blood cultures at OSH - NGTD #Possible Upper GI Bleed Patient had an episode of black emesis on 05/28. Hb 7.3 down of 7.9 on admission. He was started onIV PPI and transitioned to PO after EGD. -S\p EGD which showed large amount of coffee ground fluid in stomach and circumferential adenomatous mass-like lesion in the distal esophagus at the GE junction. Biopsied.??No e/o active bleeding. Patient vomited and had to be intubated in the endo suit for a short while, before being extubated to 2L NC. - patient Hb after iHD was found to be 6.2 so 2 unit of pRBC was transfused with improvement to 7.8 - Follow up with Biopsy - Trend Hb, transfuse if <7 #ESRD on iHD Patient dialyzes on , , , , at home with AVF in LUE. Last dialysis on Monday and he was having issues with the machine and could not complete full run. Not eligible for transplant due to BMI >40. - CBC, renal, Mg - BUN 88, K 5.5 - EKG without changes, no AMS - nephrology consult for dialysis continuation, recommended iHD today 05/29 - CMV PCR pending , CMV IgM/IgG Ab positive ?? #SAL Cirrhosis s/p liver transplant 2017 No acute decompensation. Patient follows with Dr. Ordoñez, last seen 12/2019. Previously on tacrolimus for IS but experienced AMS so switched to cyclosporine 50 mg BID and cellcept 250 mg BID - hepatic function panel, PT-INR, renal panel - liver consult : recomended stopping Cellcept, restarting home Cyclosporine 50 mg BID - lifelong entecavir 0.5 mg weekly due to high risk donor (HBV ALEXANDRA +, HCV Ab+, ALEXANDRA negative) - Continue to hold Cellcept. - Restart Cyclosporine 50 mg BID 05/29 MELD-Na score: 24 at 05/31/2020 4:29 AM Calculated from: Serum Creatinine: 10.62 mg/dL (Rounded to 4 mg/dL) at 05/31/2020 4:29 AM Serum Sodium: 136 mmol/L at 05/31/2020 4:29 AM Total Bilirubin: 0.4 mg/dL (Rounded to 1 mg/dL) at 05/31/2020 4:29 AM INR(ratio): 1.4 at 05/31/2020 4:29 AM Age: 45 years #Type 2 Diabetes Mellitus Home regimen humalin 48u qAM, 24u nightly. Last HgA1c 6.9% 01/27/2020. - HDSSI, for now ACHS fingersticks - gabapentin and tegretol for neuropathy ?? #GERD - continue home famotidine ?? #HTN On hydralazine TID, clonidine as needed on dialysis day, nifedipine BID, doxazosin at night - Holding hydralazine, nifedipine in the setting of infection - hytrin (therapeutic interchange for doxazosin) ?? #Pulmonary Hypertension On echo 07/2019 - PAP estimated to be 50 mmg Hg, likely due to JC/OHS. - avoid hypoxia, NC as needed - appears euvolemic on exam - BiPAP at night ?? #JC - BiPAP at night ?? Nutrition: Diet Orders Diet consistent carb 60g/meal starting at 05/30 9437 Code Status: Full Code Signed: JAY DAY MD 05/31/2020, 11:45 AM Cosigned by Aby Cavazos MD at 05/31/2020 12:25 PM EDT Associated attestation - Aby Cavazos MD - 05/31/2020 12:25 PM EDT INTERNAL MEDICINE ATTENDING PHYSICIAN ATTESTATION Leoncio Rollins Jr. was seen today on rounds with the team. I personally interviewed and examined the patient. I reviewed the documentation by the resident or medical student and agree as documented, except for additional comments or corrections listed below. History Much more lucid today. Prefers to avoid taking opioids as much as able so he can be more alert whenhis visits. He asks excellent questions regarding treatment and prognosis of osteomyelitis. Assessment and plan Now formally diagnosed with osteomyelitis. Appreciate input from consultants. Change in mental status yesterday is most likely related to opioids and BZDs administered. Aby Cavazos MD Clinical Instructor Department of Internal Medicine 05/31/2020 12:22 PM * Erika Buenrostro PharmD - 05/31/2020 9:12 AM EDT Transplant Pharmacy Note Transplant pharmacy is following Leoncio Rollins Jr. during hospital admission and will perform the following activities related to transplant pharmacotherapy: 1. Ensure appropriate management and titration of immunosuppressive, prophylactic, and other supportive care medications; 2. Monitor for any adverse drug effects; 3. Review the patient's medication profile for any potential drug interaction. On MMF 250mg BID and cyclosporine 50mg BID goal trough 75-125. Holding MMF in setting of infection.Lifelong entecavir. For issues not related to transplantation, please contact the clinical pharmacist assigned to the primary service. Erika Buenrostro PharmD Transplant Stud Setter [phone] Cosigned by Karli Bowser PharmD at 06/01/2020 2:54 PM EDT Associated attestation - Karli Bowser PharmD - 06/01/2020 2:54 PM EDT I agree with the plan of care as outlined below by the resident/fellow, and will oversee and assistin the transplant-related pharmaceutical care of the patient as needed. Karli Bowser PharmUbaldoD. Clinical Lute Packer Or Applier, Solid Organ Transplant Contact: Chalkboard Clinical Pharmacist mortgage loan computation clerk pager [phone] * Vera Gómez MD - 05/31/2020 12:30 AM EDT [facility] DEPARTMENT OF NEUROSURGERY INPATIENT PROGRESS NOTE Leoncio Ivelisse Rollins Jr. [id number] 1975 NEUROSURGERY ATTENDING: Dr. Villalpando INTERVAL HISTORY: *NAEON *MRI lumbar spine without contrast completed. *Continues to complain of back pain. EXAMINATION Temp: [98 ??F (36.7 ??C)-100.2 ??F (37.9 ??C)] 98.7 ??F (37.1 ??C) Heart Rate: [102-119] 118 Resp: [16-18] 18 BP: (81-163)/(35-91) 163/79 FiO2: [90 %-100 %] 90 % *GENERAL: Resting in bed, mild discomfort. *WOUND: *HEENT: NC/AT, trachea midline *CV: Normocardic, no edema, peripheral pulses intact, adequate cap refill *PULM: Respirations unlabored on RA *ABD: Soft, NTTP, no r/g *MSK: No obvious gross deformities appreciated *NEUROLOGICAL: GCS 4-5-6, AOx3 --Cranial Nerves: CN II-XII grossly intact, PERRL, EOMI, face symmetric, tongue midline -Motor: Pain limited component present D EF EE G IO RUE: 5 5 5 5 5 LUE: 5 5 5 5 5 HF KE DF EHL PF RLE: 5 5 5 4+ 5 LLE: 5 5 5 4+ 5 --Sensation: Sensation intact to light touch and symmetric in bilateral upper and lower extremities. Pain to the left anterior thigh. --Reflex: No hyperreflexia. --Tone: No abnormality of tone appreciated in bilateral upper or lower extremities. --Rectal: Deferred Imaging Review MRI L spine: No prior MRI to compare to. Noted to have persistent osteomyelitis discitis at L4-5 with moderate ventral epidural abscess with some compression. However, CSF signal noted in thecal sac with identification of nerve roots. Postoperative seroma over laminectomy defect appreciated. ASSESMENT & PLAN 45 y.o. male with a recent L4-5 Lami/Discectomy who presents with low back pain and pain limited weakness. CT lumbar spine from an outside spine concerning for continued discitis. Patient neurologically intact on exam except for some pain limited components. PLAN: - Please obtain imaging from OSH ([facility]) for MRI comparison - Recommending trending ESR/CRP - Continue to follow ID recommendations. - At this time, he has remained neurologically stable with his imaging findings. It would be beneficial to his care to obtain his prior MRIs for comparison. Regardless, with his examination, we recommend continued conservative management IV ABX. If there are any new motor/sensory/incontinence deficits, please call Neurosurgery for evaluation. If further questions or concerns should arise, do not hesitate to contact the neurosurgery residenton call, [phone]. This progress note/consult was copied forward from the note written by Dr. Alaniz. I have reviewedand updated the history, physical exam, data, assessment and plan of the note so it reflects the evaluation and management of the patient on today's date. Vera Gómez MD Neurosurgery, PGY1 p 0912 8:40 AM 05/31/2020 * Blake Dang, DarrianD - 05/30/2020 2:02 PM EDT Images from the original note were not included. [facility] Clinical Pharmacy Service: Vancomycin Monitoring Consult Leoncio Rollins Jr. is a 45 y.o. male currently being treated for possible spinal osteo Patient is allergic to codeine sulfate and codeine. Pharmacy consulted for vancomycin management by Dr. Galvez. Current Anti-Infectives Dose Frequency Start End cefepime (MAXIPIME) 1 g in sodium chloride 0.9% 50 mL IVPB ADDaptor 1 g Every 24 hours 05/28/2020 Admin Instructions: For Hemodialysis patients - on dialysis days, please administer Cefepime dose after completion of hemodialysis.Use ADDaptor product - Mix Thoroughly Before Administration Route: Intravenous entecavir (BARACLUDE) tablet 0.5 mg 0.5 mg Every 7 days 06/02/2020 Admin Instructions: ADMINISTER ON EMPTY STOMACH (2 HOURS BEFORE OR AFTER MEALS).LEVEL 2 HAZARDOUS MEDICATION Route: Oral vancomycin intermittent/pulse dosing PLACEHOLDER ORDER Use as directed PRN 05/28/2020 Admin Instructions: Patient is receiving intermittent/pulse vancomycin dosing based on random serumlevels. NOTE:This is NOT an active medication order. If a dose of vancomycin is needed, it must be entered as a one-time dose by physicians or pharmacists. Route: Intravenous documented within (last 72 hours) Date/Time Action Medication Dose Rate 05/28/20 1738 Given vancomycin (VANCOCIN) 1,500 mg in sodium chloride 0.9 % 250 mL IVPB 1,500 mg 167 mL/hr --Objective Data-- Vitals: 05/30/20 1033 05/30/20 1130 05/30/20 1136 05/30/20 1334 BP: 136/62 (!) 127/91 118/50 146/57 Pulse: 118 117 114 Resp: 18 18 18 Temp: 98.6 ??F (37 ??C) 100.2 ??F (37.9 ??C) 98.6 ??F (37 ??C) 100.2 ??F (37.9 ??C) TempSrc: Oral Oral Axillary Oral SpO2: 98% 90% 91% Weight: I/O last 3 completed shifts: In: 770 [P.O.:270; I.V.:500] Out: 2348 [Urine:150; Other:2198] WBC, BUN, Creatinine (Last 7 days) WBC BUN Creatinine 8.9 10E3/uL 05/30/20 1206 56 mg/dL 05/30/20 1206 10.01 mg/dL 05/30/20 1206 11.4 10E3/uL 05/30/20 0029 51 mg/dL 05/30/20 0029 8.15 mg/dL 05/30/20 0029 8.3 10E3/uL 05/29/20 0007 88 mg/dL 05/28/20 1404 13.63 mg/dL 05/28/20 1404 [place] body weight: 66.1 kg (145 lb 11.6 oz) Adjusted ideal body weight: 90.1 kg (198 lb 10.2 oz) ESRD on HD --Cultures-- Microbiology Results Date and Time Order Name Sensitivity Status Organisms Specimen ID Source 05/28/2020 1541 #1 Blood culture-Peripheral Preliminary [id number] Peripheral 05/28/2020 1404 #2 Blood culture-Peripheral Preliminary [id number] Peripheral --Vancomycin Concentrations-- Lab Results (Last 7 days) Vanc Rdm 22.9 ug/mL 05/30/20 1206 16.3 ug/mL 05/28/20 1541 --Assessment and Plan-- ?? Patient is a 45 y.o. male being treated with vancomycin for possible spinal osteo. ?? Random vancomycin level 22.9 mg/L this afternoon. Goal vancomycin trough of 15-20 mg/L ?? Given ESRD, should not need additional vancomycin until after next HD session ?? Will check vancomycin serum concentration Monday AM prior to HD ?? Pharmacy will continue to monitor therapy for efficacy and toxicity. Thank you for the consult. Maria Teresa Kingsley.S. Pharm, Pharm.D. Clinical Lute Packer Or Applier, Solid Organ Transplant -Please contact me via [email or web address] secure chat or cell phone with any questions 05/30/2020 2:02 PM * Jay Day MD - 05/30/2020 12:16 PM EDT Department of Internal Medicine Daily Progress Note Chief Complaint / Reason for Follow-Up Leoncio Rollins Jr. is a 45 y.o. male with a history of ESRD on HD at home (MTuThFSa), SAL cirrhosis s/p liver transplant 2018, pulmonary HTN, JC, DM2, HTN, obesity presenting to the hospital as direct admission with complaint of subacute low back pain and weakness following spinal surgery. Interval History / Subjective - Patient was hard to arouse this morning, was responding briefly and going back to sleep. He was given xanax 1mg and oxycodone 10 mg at 0337 which we believe was the reason for the patient conditionthis morning, because the patient mental status improved gradually thought the day and he was awakeand following commends at noon. - s/p EGD yesterday with no obvious bleeding source. - Patient had iHD yesterday but only tolerated one hour Review of Systems (Focused) Review of Systems Constitutional: Negative for chills, fever and malaise/fatigue. HENT: Negative for congestion, ear discharge and hearing loss. Eyes: Negative for blurred vision, pain and discharge. Respiratory: Negative for cough, sputum production and shortness of breath. Cardiovascular: Negative for chest pain, palpitations and leg swelling. Gastrointestinal: Negative for abdominal pain, diarrhea, nausea and vomiting. Genitourinary: Negative for dysuria, frequency and urgency. Musculoskeletal: Positive for bilateral leg pain. Negative for falls, myalgias and neck pain. Skin: Negative for itching and rash. Neurological: Negative for sensory change, focal weakness and loss of consciousness. Medications Scheduled Meds: ??? carBAMazepine 200 mg Oral Nightly (2099) ??? ceFEPime (MAXIPIME) IV extended infusion 1 g Intravenous Q24H ??? cycloSPORINE modified 50 mg Oral BID ??? [START ON 06/02/2020] entecavir 0.5 mg Oral Q7 Days ??? heparin 5,000 Units Subcutaneous 3 times per day ??? insulin lispro 0-12 Units Subcutaneous TID AC ??? melatonin 3 mg Oral Nightly (2099) ??? pantoprazole 40 mg Oral DAILY 0600 ??? polyethylene glycol 17 g Oral BID ??? quetiapine 12.5 mg Oral Nightly (2099) ??? senna-docusate 2 tablet Oral Nightly (2099) ??? terazosin 10 mg Oral Nightly (2099) Continuous Infusions: ??? sodium chloride 0.9 % 20 mL/hr (05/30/20 0708) PRN Meds: acetaminophen, ALPRAZolam, dextrose 50 % in water (D50W) OR dextrose 50 % in water (D50W), glucose, ondansetron, oxyCODONE OR oxyCODONE, proMETHazine, vancomycin intermittent/pulse dosing PLACEHOLDER ORDER Vital Signs Temp: [97.5 ??F (36.4 ??C)-100.2 ??F (37.9 ??C)] 98.6 ??F (37 ??C) Heart Rate: [48-145] 114 Resp: [16-22] 18 BP: (47-222)/(35-198) 118/50 FiO2: [51 %-100 %] 90 % Intake/Output Summary (Last 24 hours) at 05/30/2020 1245 Last data filed at 05/30/2020 0600 Gross per 24 hour Intake 710 ml Output 2348 ml Net -1638 ml Physical Exam Vital signs reviewed. General: Well appearing, age appropriate male, in no acute distress JOLANTA: Normocephalic, atraumatic, PERRL, EOMs intact Neck: No JVD, trachea midline Heart: Regular rate and rhythm, no murmurs, rubs, gallops Lungs: Clear to auscultation bilaterally, no wheezes or rales, normal work of breathing Back: Symmetric, no CVA tenderness, no spinal or paraspinal tenderness Abdomen: Soft, obese, non-tender, non-distended, scar present from prior liver transplant Extremities: No clubbing, no edema, AVF present on L UE for dialysis, thrill auscultated Skin: No rashes, no wounds, no jaundice Neuro: AOx4, moves all 4 extremities, 5/5 strength in flexion/extension of knee, dorsiflexion and plantarflexion, Strength 3/5 in hip flexion limited due to pain, normal sensation of lower extremities, follows commands Psych: Alert and appropriate, normal affect Laboratory Data CBC 05/30/2020 \ 6.2 / 11.4 \ / 349 / \ / 19.9 \ Differential 03/12/2020 N 59.5 L 29.8 M 8.8 E 1.8 B 0.1 Renal 05/30/2020 137 94 51 / ___ __ / 147 \ 4.5 24 8.15 \ Ca 8.8 (05/30/2020) Mg 1.8 (05/30/2020) Phos 4.8 (05/30/2020) Lipids Lab Results Component Value Date CHOLTOT 236 (H) 01/27/2020 TRIG 303 (H) 01/27/2020 HDL 32 (L) 01/27/2020 LDL 143 01/27/2020 LFTs 05/30/2020 \ 0.4 / \ 0. \ / / / 88 \ PT/INR/PTT - 05/29/2020 PT 16.1 INR 1.3 PTT 28.6 Invalid input(s): WBCCAST, GRANCAST No results found for: NTPROBNP Lab Results Component Value Date TSH 3.59 01/27/2020 FREET4 1.03 10/20/2017 Lab 05/30/20 1033 05/29/20 2314 05/29/20 1417 05/29/20 1144 POC GLU MONITORING DEVICE 134* 164* 165* 159* Diagnostic Studies X-ray Chest PA or AP Final Result IMPRESSION: No acute cardiopulmonary abnormality. Report Verified by: Manolo Rosenthal MD at 05/29/2020 4:46 PM EDT X-ray Comparison Images Final Result X-ray Comparison Images Final Result X-ray Comparison Images Final Result MRI Lumbar spine WO contrast (Results Pending) CT Lumbar WO at OSH: - postoperative changes realted to posterior decompressive resection at L5 - Findings suspicious for L5-S1 discitis and osteomyelitis. - Abnormal soft tissue and fluid density in posterior paraspinous tissues at L3- S1 with apparent extension into the central canal at L5 level, suspicious for soft tissue infection ?? Assessment & Plan Leoncio Rollins Jr. is a 45 y.o. male being admitted to the hospital for concern for osteomyelitis. Medical problems being addressed in this encounter include the following: ?? Principal Problem: Osteomyelitis (CMS Dx) Active Problems: Liver transplant recipient (CMS Dx) ?? #Concern for Osteomyelitis Patient with recent spinal surgery now with back pain, difficulty walking and imaging findings concerning for osteomyelitis and soft tissue infection. Patient neurologically in tact. Patient receivedone dose of vanc and zosyn at OSH. ESR 62, CRP 190. - vancomycin, cefepime to cover empirically - pharmacy consult for vancomycin dosing - MRI WO, lumbar spine to better characterize CT findings - transplant ID consult, recommend containing empric therapy pending MRI result - spine surgery consult, appreciate recs - blood cultures x2 : NGTD - follow-up blood cultures at OSH - NGTD #Possible Upper GI Bleed Patient had an episode of black emesis on 05/28. Hb 7.3 down of 7.9 on admission. He was started onIV PPI and transitioned to PO after EGD. -S\p EGD which showed large amount of coffee ground fluid in stomach and circumferential adenomatous mass-like lesion in the distal esophagus at the GE junction. Biopsied.??No e/o active bleeding. Patient vomited and had to be intubated in the endo suit for a short while, before being extubated to 2L NC. - patient Hb after iHD was found to be 6.2 so 2 unit of pRBC was transfused. - Follow up with Biopsy - Trend Hb, transfuse if <7 #ESRD on iHD Patient dialyzes on , , , , at home with AVF in [facility]. Last dialysis on Monday and he was having issues with the machine and could not complete full run. Not eligible for transplant due to BMI >40. - CBC, renal, Mg - BUN 88, K 5.5 - EKG without changes, no AMS - nephrology consult for dialysis continuation, recommended iHD today 05/29 - CMV PCR and Antibodies ?? #SAL Cirrhosis s/p liver transplant 2017 No acute decompensation. Patient follows with Dr. Ordoñez, last seen 12/2019. Previously on tacrolimus for IS but experienced AMS so switched to cyclosporine 50 mg BID and cellcept 250 mg BID - hepatic function panel, PT-INR, renal panel - liver consult : recomended stopping Cellcept, restarting home Cyclosporine 50 mg BID - lifelong entecavir 0.5 mg weekly due to high risk donor (HBV ALEXANDRA +, HCV Ab+, ALEXANDRA negative) - Continue to hold Cellcept. - Restart Cyclosporine 50 mg BID 05/29 #Type 2 Diabetes Mellitus Home regimen humalin 48u qAM, 24u nightly. Last HgA1c 6.9% 01/27/2020. - HDSSI, for now ACHS fingersticks - gabapentin and tegretol for neuropathy ?? #GERD - continue home famotidine ?? #HTN On hydralazine TID, clonidine as needed on dialysis day, nifedipine BID, doxazosin at night - Holding hydralazine, nifedipine in the setting of infection and soft pressures - hytrin (therapeutic interchange for doxazosin) ?? #Pulmonary Hypertension On echo 07/2019 - PAP estimated to be 50 mmg Hg, likely due to JC/OHS. - avoid hypoxia, NC as needed - appears euvolemic on exam - BiPAP at night ?? #JC - BiPAP at night ?? Nutrition: Diet Orders Diet clear liquid No Red starting at 05/30 1223 Code Status: Full Code Signed: JAY DAY MD 05/30/2020, 12:45 PM Cosigned by Aby Cavazos MD at 05/30/2020 2:06 PM EDT Associated attestation - Aby Cavazos MD - 05/30/2020 2:06 PM EDT INTERNAL MEDICINE ATTENDING PHYSICIAN ATTESTATION Leoncio Rollins Jr. was seen today on rounds with the team. I personally interviewed and examined the patient. I reviewed the documentation by the resident or medical student and agree as documented, except for additional comments or corrections listed below. Assessment and plan Unfortunately, many delays for much needed MRI. Difficult to arouse this morning, but returned to baseline without intervention 1 - 2 hours later. Caution with opioids and BZDs. Aby Cavazos MD Clinical Instructor Department of Internal Medicine 05/30/2020 2:05 PM * Flaco Schwartz RRT - 05/30/2020 10:30 AM EDT ABG obtained by RT from right brachial artery without complications. Pressure held on site until bleeding subsided. Sample sent to lab. * Melody Orellana RN - 05/29/2020 8:28 PM EDT 05/29/202014 Hemodialysis Intra - treatment BP (!) 173/132 Heart Rate 69 Blood Flow Rate (mL/min) 350 mL/min Dialysate Temperature 96.8 ??F (36 ??C) Dialysate Flow Rate (mL/min) 600 ml/min Arterial Pressure (mmHg) -208 mmHg Venous Pressure (mmHg) 134 mmHg Transmembrane Pressure (mmHg) 37 mmHg Conductivity (mS/cm) 13.7 mS/cm Ultrafiltration Rate (mL/hr) 40 mL/hr Ultrafiltration Total (ml) 428 mL Total Liters Processed (L) 41.5 Liters Access and face visible Yes Arteriovenous Lines Secure Yes Air detector engaged Yes Hemosafe Clip On Yes NVL Alarm engaged Yes Treatment Comments other (Anxious, PRN Xanax given. ) Patient moaning, says he wants to go rest, wants to stop dialysis due to pain. Encouraged to give Xanax a chance to work to complete dialysis treatment. * Bayron Dawson MD - 05/29/2020 6:33 PM EDT BRIEF HEPATOLOGY NOTE: EGD performed today with large amount of coffee ground fluid in stomach and circumferential adenomatous mass-like lesion in the distal esophagus at the GE junction. Biopsied. No e/o active bleeding. - Will follow path - Hold home CellCept due to concern for infection - Continue home cyclosporine 50 bid - Cyclosporine level tomorrow AM, will follow on Monday - Daily MELD Labs Will follow peripherally, call back with further questions or any change in clinical status. Pleasecall prior to discharge to set up follow up. Bayron Barba MD Gastroenterology and Hepatology Fellow Pager: [phone] (on weekdays after 5 pm and weekends/holidays, please page GI fellow mortgage loan computation clerk) * RT Nain - 05/29/2020 3:54 PM EDT Patient left cellphone in MRI department last night when MRI was attempted; I spoke with nurse and nurse stated to leave the phone with the [facility]. [facility] received cellphone at [phone] * Cecelia Womack, PharmD - 05/29/2020 2:16 PM EDT Images from the original note were not included. [facility] Clinical Pharmacy Service: Vancomycin Monitoring Consult Leoncio Rollins Jr. is a 45 y.o. male currently being treated for possible spinal osteo Patient is allergic to codeine sulfate and codeine. Pharmacy consulted for vancomycin management by Dr. Galvez. Current Anti-Infectives Dose Frequency Start End cefepime (MAXIPIME) 1 g in sodium chloride 0.9% 50 mL IVPB ADDaptor 1 g Every 24 hours 05/28/2020 Admin Instructions: For Hemodialysis patients - on dialysis days, please administer Cefepime dose after completion of hemodialysis.
Use ADDaptor product - Mix Thoroughly Before Administration Route: Intravenous entecavir (BARACLUDE) tablet 0.5 mg 0.5 mg Every 7 days 06/02/2020 Admin Instructions: ADMINISTER ON EMPTY STOMACH (2 HOURS BEFORE OR AFTER MEALS).
LEVEL 2 HAZARDOUS MEDICATION Route: Oral vancomycin (VANCOCIN) 1,500 mg in sodium chloride 0.9 % 250 mL IVPB (Completed) 12 mg/kg ?? 126.1 kg Once 05/28/2020 05/28/2020 Route: Intravenous vancomycin intermittent/pulse dosing PLACEHOLDER ORDER Use as directed PRN 05/28/2020 Admin Instructions: Patient is receiving intermittent/pulse vancomycin dosing based on random serumlevels. NOTE:This is NOT an active medication order. If a dose of vancomycin is needed, it must be entered as a one-time dose by physicians or pharmacists. Route: Intravenous documented within (last 72 hours) Date/Time Action Medication Dose Rate 05/28/20 1738 Given vancomycin (VANCOCIN) 1,500 mg in sodium chloride 0.9 % 250 mL IVPB 1,500 mg 167 mL/hr --Objective Data-- Vitals: 05/29/20 0010 05/29/20 0449 05/29/20 0803 05/29/20 1242 BP: 110/58 111/62 101/59 93/65 Pulse: 102 105 122 Resp: 16 18 18 Temp: 98 ??F (36.7 ??C) 98.1 ??F (36.7 ??C) 97.9 ??F (36.6 ??C) TempSrc: Oral Oral SpO2: 95% 90% 90% Weight: No intake/output data recorded. WBC, BUN, Creatinine (Last 7 days) WBC BUN Creatinine 8.3 10E3/uL 05/29/20 0007 88 mg/dL 05/28/20 1404 13.63 mg/dL 05/28/20 1404 6.9 10E3/uL 05/28/20 1404 [place] body weight: 66.1 kg (145 lb 11.6 oz) Adjusted ideal body weight: 90.1 kg (198 lb 10.2 oz) ESRD on HD --Cultures-- Microbiology Results Date and Time Order Name Sensitivity Status Organisms Specimen ID Source 05/28/2020 1541 #1 Blood culture-Peripheral Preliminary [id number] Peripheral 05/28/2020 1404 #2 Blood culture-Peripheral Preliminary [id number] Peripheral --Vancomycin Concentrations-- Lab Results (Last 7 days) Vanc Rdm 16.3 ug/mL 05/28/20 1541 --Assessment and Plan-- ?? Patient is a 45 y.o. male being treated with vancomycin for possible spinal osteo. ?? Will pulse dose. Random level 16.3 mg/L yesterday so gave 1500 mg x 1 ?? Will check vancomycin serum concentration with am labs, prior to next dose. ?? Goal vancomycin trough of 15-20 mg/L ?? Dosing may be difficult pending HD plans (gets 5x per week at home). Will continue to monitor ?? Pharmacy will continue to monitor therapy for efficacy and toxicity. Thank you for the consult. Cecelia Womack PharmD, [facility] Clinical Lute Packer Or Applier Internal Medicine/Diabetes Now Pager [phone] Office: [phone] Clinical Pharmacist On-Call Pager [phone] 05/29/2020 2:16 PM * Jay Day MD - 05/29/2020 12:04 PM EDT Called patient's , Kym, at approximately 1201. Updated on progress and plan. They expressed understanding and are in agreement with current management. Signed: JAY DAY MD 05/29/2020, 12:04 PM * Jay Day MD - 05/29/2020 11:41 AM EDT Department of Internal Medicine Daily Progress Note Chief Complaint / Reason for Follow-Up Leoncio Rollins Jr. is a 45 y.o. male with a history of ESRD on HD at home (MTuThFSa), SAL cirrhosis s/p liver transplant 2018, pulmonary HTN, JC, DM2, HTN, obesity presenting to the hospital as direct admission with complaint of subacute low back pain and weakness following spinal surgery. Interval History / Subjective - NMT called for black emesis overnight (HR 119, BP 116/97), repeat Hb 7.3 (7.9) - patient did not get the MRI done yesterday due anxiety. - patient endorsed bilateral leg pain. - patient had a bowel movement while in bed as he asked for help to be taken to the bathroom but didn't get so he had to do it while in bed. Objective - HbA IgM : non reactive - HBV sAb : Reactive, Hep B Core Ab : non reactive, HBV sAg: reactive - HCV Ab: non reactive Review of Systems (Focused) Review of Systems Constitutional: Negative for chills, fever and malaise/fatigue. HENT: Negative for congestion, ear discharge and hearing loss. Eyes: Negative for blurred vision, pain and discharge. Respiratory: Negative for cough, sputum production and shortness of breath. Cardiovascular: Negative for chest pain, palpitations and leg swelling. Gastrointestinal: Negative for abdominal pain, diarrhea, nausea and vomiting. Genitourinary: Negative for dysuria, frequency and urgency. Musculoskeletal: Positive for bilateral leg pain. Negative for falls, myalgias and neck pain. Skin: Negative for itching and rash. Neurological: Negative for sensory change, focal weakness and loss of consciousness. Medications Scheduled Meds: ??? carBAMazepine 200 mg Oral Nightly (2100) ??? ceFEPime (MAXIPIME) IV extended infusion 1 g Intravenous Q24H ??? cycloSPORINE modified 50 mg Oral BID ??? gabapentin 300 mg Oral Daily 0900 ??? heparin 5,000 Units Subcutaneous 3 times per day ??? hydrALAZINE 100 mg Oral TID ??? insulin lispro 0-12 Units Subcutaneous TID AC ??? NIFEdipine 90 mg Oral BID ??? ondansetron 4 mg Intravenous Once ??? pantoprazole (PROTONIX) IV 40 mg Intravenous BID6 ??? polyethylene glycol 17 g Oral BID ??? senna-docusate 2 tablet Oral Nightly (2099) ??? terazosin 10 mg Oral Nightly (2099) Continuous Infusions: PRN Meds: acetaminophen, ALPRAZolam, dextrose 50 % in water (D50W) OR dextrose 50 % in water (D50W), glucose, ondansetron, oxyCODONE OR oxyCODONE, proMETHazine, vancomycin intermittent/pulse dosing PLACEHOLDER ORDER Vital Signs Temp: [98 ??F (36.7 ??C)-98.8 ??F (37.1 ??C)] 98.1 ??F (36.7 ??C) Heart Rate: [90-121] 105 Resp: [16-18] 18 BP: (82-138)/(49-97) 101/59 Intake/Output Summary (Last 24 hours) at 05/29/2020 1155 Last data filed at 05/29/2020 1000 Gross per 24 hour Intake 60 ml Output 0 ml Net 60 ml Physical Exam Vital signs reviewed. General: Well appearing, age appropriate male, in no acute distress JOLANTA: Normocephalic, atraumatic, PERRL, EOMs intact Neck: No JVD, trachea midline Heart: Regular rate and rhythm, no murmurs, rubs, gallops Lungs: Clear to auscultation bilaterally, no wheezes or rales, normal work of breathing Back: Symmetric, no CVA tenderness, no spinal or paraspinal tenderness Abdomen: Soft, obese, non-tender, non-distended, scar present from prior liver transplant Extremities: No clubbing, no edema, AVF present on L UE for dialysis, thrill auscultated Skin: No rashes, no wounds, no jaundice Neuro: AOx4, moves all 4 extremities, 5/5 strength in flexion/extension of knee, dorsiflexion and plantarflexion, Strength 3/5 in hip flexion limited due to pain, normal sensation of lower extremities, follows commands Psych: Alert and appropriate, normal affect Laboratory Data CBC 05/29/2020 \ 7.3 / 8.3 \ / 399 / \ / 23.4 \ Differential 03/12/2020 N 59.5 L 29.8 M 8.8 E 1.8 B 0.1 Renal 05/28/2020 137 96 88 / ___ __ / 115 \ 5.5 23 13.63 \ Ca 9.5 (05/28/2020) Mg 1.9 (05/28/2020) Phos 8.3 (05/28/2020) Lipids Lab Results Component Value Date CHOLTOT 236 (H) 01/27/2020 TRIG 303 (H) 01/27/2020 HDL 32 (L) 01/27/2020 LDL 143 01/27/2020 LFTs 05/28/2020 \ 0.4 / \ 0.12 / 12 \ / 18 / \ / 114 \ PT/INR/PTT - 05/29/2020 PT 16.1 INR 1.3 PTT 28.6 Invalid input(s): WBCCAST, GRANCAST No results found for: NTPROBNP Lab Results Component Value Date TSH 3.59 01/27/2020 FREET4 1.03 10/20/2017 Lab 05/29/20 1144 05/28/20 1801 POC GLU MONITORING DEVICE 159* 156* Diagnostic Studies X-ray Comparison Images Final Result X-ray Comparison Images Final Result X-ray Comparison Images Final Result MRI Lumbar spine WO contrast (Results Pending) CT Lumbar WO at OSH: - postoperative changes realted to posterior decompressive resection at L5 - Findings suspicious for L5-S1 discitis and osteomyelitis. - Abnormal soft tissue and fluid density in posterior paraspinous tissues at L3- S1 with apparent extension into the central canal at L5 level, suspicious for soft tissue infection ?? Assessment & Plan Leoncio Rollins Jr. is a 45 y.o. male being admitted to the hospital for concern for osteomyelitis. Medical problems being addressed in this encounter include the following: ?? Principal Problem: Osteomyelitis ([facility] Dx) Active Problems: Liver transplant recipient ([facility] Dx) ?? #Concern for Osteomyelitis Patient with recent spinal surgery now with back pain, difficulty walking and imaging findings concerning for osteomyelitis and soft tissue infection. Patient neurologically in tact. Patient receivedone dose of vanc and zosyn at OSH. ESR 62, CRP 190. - vancomycin, cefepime to cover empirically - pharmacy consult for vancomycin dosing - MRI WO, lumbar spine to better characterize CT findings - transplant ID consult, appreciate recommendations - spine surgery consult, appreciate recs - blood cultures x2 : NGTD - follow-up blood cultures at OSH - NGTD #Possible Upper GI Bleed Patient had an episode of black emesis on 05/28. Hb 7.3 down of 7.9 on admission. He was started onIV PPI. - EGD today per Hepatology #ESRD on iHD Patient dialyzes on , , , , at home with AVF in . Last dialysis on Monday and he was having issues with the machine and could not complete full run. Not eligible for transplant due to BMI >40. - CBC, renal, Mg - BUN 88, K 5.5 - EKG without changes, no AMS - nephrology consult for dialysis continuation, recommended iHD today 05/29 - CMV PCR and Antibodies ?? #SAL Cirrhosis s/p liver transplant 2017 No acute decompensation. Patient follows with Dr. Ordoñez, last seen 12/2019. Previously on tacrolimus for IS but experienced AMS so switched to cyclosporine 50 mg BID and cellcept 250 mg BID - hepatic function panel, PT-INR, renal panel - liver consult : recomended stopping Cellcept, restarting home Cyclosporine 50 mg BID - lifelong entecavir 0.5 mg weekly due to high risk donor (HBV ALEXANDRA +, HCV Ab+, ALEXANDRA negative) - Continue to hold Cellcept. - Restart Cyclosporine 50 mg BID 05/29 #Type 2 Diabetes Mellitus Home regimen humalin 48u qAM, 24u nightly. Last HgA1c 6.9% 01/27/2020. - HDSSI, for now ACHS fingersticks - gabapentin and tegretol for neuropathy ?? #GERD - continue home famotidine ?? #HTN On hydralazine TID, clonidine as needed on dialysis day, nifedipine BID, doxazosin at night - continue hydralazine, nifedipine, hytrin (therapeutic interchange for doxazosin) ?? #Pulmonary Hypertension On echo 07/2019 - PAP estimated to be 50 mmg Hg, likely due to JC/OHS. - avoid hypoxia, NC as needed - appears euvolemic on exam - BiPAP at night ?? #JC - BiPAP at night ?? Nutrition: Diet Orders Diet NPO past midnight starting at 05/28 2883 Code Status: Full Code Signed: JAY DAY MD 05/29/2020, 11:55 AM Cosigned by Abbie Cifuentes MD at 05/29/2020 12:01 PM EDT Associated attestation - Abbie Cifuentes MD - 05/29/2020 12:01 PM EDT See attestation on H&P. Abbie Cifuentes MD FACP Internal Medicine Purple Team Attending [facility] Department of Internal Medicine 05/29/2020 * Brandy Rivera, OT - 05/29/2020 10:57 AM EDT Occupational Therapy Initial Assessment Name: Leoncio Rollins Jr. : 1975 Attending Physician: Abbie Cifuentes, * Admission Diagnosis: POST-OP INFECTION Date: 05/29/2020 Room: 8024/U8024 Reviewed Pertinent hospital course: Yes Hospital Course PT/OT: 45 y.o. M p/w weakness and back pain. PMH of liver cirrhosis s/p OLT (2017) and recent L4-5 discectomy and posterior decompression; 05/28-05/29: coffee ground emesis Activity Level: Activity as tolerated Aide: n/a Recommendation Recommendation: Defer at this time Equipment Recommendations: Defer at this time Assessment Assessment: Decreased Functional Mobility, Decreased ADL status, Decreased Balance, Decreased self-care transfers, Decreased activity tolerance Prognosis for OT goals: Good Pt demo's minimal functional evaluation on this date 2/2 c/o pain and inability to complete functional bed mobility tasks. BUE strength assessed and WFL. Pt will be re-assessed in-house to determine discharge recommendation/equipment recommendations when able. D/c rec: Defer at this time; pending further ADL/mobility assessment. Outcome Measures AM-PAC 6 Clicks Daily Activity Inpatient Short Form: OT 6 Clicks Score: 14 Home Living/Prior Function Patient able to provide accurate information at this time: Yes Lives With: Spouse Assistance available: 24 hour assistance Type of Home: Mobile home Home Entry: More than 1 step to enter, with railing Stairs to enter: 4 in the back and 1 step in the front Home Layout: One level Bathroom Shower/Tub: Tub/shower unit Bathroom Equipment: Grab bars in shower, Shower chair Home Equipment: Rollator Prior Function Functional Mobility: Independent ( no assistive device) Comments: I have been down in the bed for 3 weeks (he reports minimal activity and getting up to the bathroom only) ADL Assistance: Needs assistance Needs asistance with: (LB ADL's) IADL Assistance: patient does not complete Vocation: On disability Leisure: Hobbies-yes (Comment) Leisure Activities: Go to the EPS Pain Pain Score: 8 Pain Location: Leg(both) Pain Descriptors: Sharp Pain Intervention(s): Ambulation/increased activity Therapist reported pain to: Team is aware Cognition Overall Cognitive Status: Within Functional Limits Cognitive Assessment: Arousal/ Alertness;Behavior;Following Commands Arousal/Alertness: Fluctuating alertness Orientation Level: Oriented X4 Behavior: Cooperative;Apprehensive Following Commands: Follows all commands and directions [...] functional activites Neuromuscular Overall Sensation: Within Functional Limits Additional Comments: B LE intact to LT Functional Mobility Bed Mobility Rolling: (Pt demo's ability to use BUE's to roll supine in bed but unable to complete formal task and further mobility 2/2 pain. Will continue to assess.) ADL Lower Body Dressing: Total assistance Lower Body Dressing Deficit: Don/doff R sock;Don/doff L sock Location Assessed LE Dressing: Supine in bed Position after Treatment/Safety Handoff Position after therapy session: Bed Details: Call light/ needs within reach Alarms: Bed Alarms Status: Activated and interfaced unchanged from previous settings Plan Plan Treatment Interventions: ADL retraining, Activity Tolerance training, Functional transfer training,Patient/Family training, Fine motor coordination activities, Therapeutic Activity, UE strengthening/ROM, Neuro muscular reeducation, Compensatory technique education, Energy Conservation OT Frequency: minimum 3x/week The plan of care and recommendations assesses the patient's and/or caregiver's readiness, willingness, and ability to provide or support functional mobility and ADL tasks as needed upon discharge. Goals Goals to be met in: 1 week Patient stated goal: to return to baseline/PLOF Patient will complete supine to sit in prep for ADLs: Will tolerate assessment Patient will complete grooming task: Will tolerate assessment Patient will complete upper body dressing: Will tolerate assessment Patient will complete lower body dressing: Maximum assistance Custodial Goal : Pt will complete a functional OOB t/f in prep for ADL tasks. intermediate card tender goal to be met in: 2 weeks Collaborated with: Patient Patient/Family Education Educated patient on the role of occupational therapy, OT goals, OT plan of care, discharge recommendation, ADL training, functional mobility training and the importance of safety and fall prevention strategies including need for supervision/ assistance with OOB activity and use of call light. patient verbalized understanding. OT Time Start Time: 1011 Stop Time: 1029 Time Calculation (min): 18 min OT Charges $OT Evaluation Low Complex 30 Min: 1 Procedure Brandy Rivera MS, OTR/L [facility] Pager #: [phone] Department #: [phone] Hours: [id number] Problem List Patient Active Problem List Diagnosis ??? GERD (gastroesophageal reflux disease) ??? Hypertension ??? Diabetes mellitus (CMS Dx) ??? Liver transplanted (CMS Dx) ??? Liver transplant recipient (CMS Dx) ??? Encounter for therapeutic drug level monitoring ??? Immunosuppression (CMS Dx) ??? Peripheral edema ??? Unstable angina pectoris (CMS Dx) ??? Abnormal stress test ??? S/P liver transplant (CMS Dx) ??? CKD (chronic kidney disease) stage 3, GFR 30-59 ml/min ??? Qhqzq-ig-qreutgt kidney injury (CMS Dx) ??? Metabolic acidosis ??? Group C streptococcal infection ??? Esophagitis, CMV (CMS Dx) ??? Pre-op evaluation ??? Anemia ??? Osteomyelitis (CMS Dx) Past Medical History Past Medical [...] PROCEDURE 10/2016 ??? TIPS Revision 04/2017 * Eliz Wright, PT - 05/29/2020 10:53 AM EDT Physical Therapy Initial Assessment Name: Leoncio Rollins Jr. : 1975 Attending Physician: Abbie Cifuentes, * Admission Diagnosis: POST-OP INFECTION Date: 05/29/2020 Room: 8024/U8024 Reviewed Pertinent hospital course: Yes Hospital Course PT/OT: 45 y.o. M p/w weakness and back pain. PMH of liver cirrhosis s/p OLT (2016) and recent L4-5 discectomy and posterior decompression; 05/28-05/29: coffee ground emesis Activity Level: Activity as tolerated Assessment Assessment: Impaired Bed Mobility, Impaired Transfers, Impaired Gait, Impaired Activity Tolerance, Impaired Strength Prognosis: Rosendo Wolfe had very minimal participation in PT evaluation due to increased c/o pain with LE strength and ROM assessment. He reports that when he tries to sit up, his pain is excruciating. Further functional assessment needed prior to making recommendations. Recommendation Recommendation: Defer at this time, Other (Comment)(unable to make recommendations until functionalassessment made) Equipment Recommended: Defer until further assessment Outcome Measures AM-PAC 6 Clicks Basic Mobility Inpatient Short Form: PT 6 Clicks Score: 14 Mobility Recommendations for Staff Patient ability: Requires frequent repositioning (at least every 2 hours) Home Living/Prior Function Patient able to provide accurate information at this time: Yes Lives With: Spouse Assistance available: 24 hour assistance Type of Home: Mobile home Home Entry: More than 1 step to enter;with railing Stairs to enter: 4 in the back and 1 step in the front Home Layout: One level Bathroom Shower/Tub: Tub/shower unit Bathroom Equipment: Grab bars in shower;Shower chair Home Equipment: Rollator Prior Function Functional Mobility: Independent ( no assistive device) Comments: I have been down in the bed for 3 weeks (he reports minimal activity and getting up to the bathroom only) ADL Assistance: Intermittent assistance needed( I can do it but not to my 's specks so she helps me out ) IADL Assistance: Needs assistance Vocation: On disability Leisure Activities: Go to the [place], [employer] Pain Pain Score: 8 Pain Location: Leg(both) Pain Descriptors: Sharp Pain Intervention(s): Ambulation/increased activity Therapist reported pain to: Team is aware Vision Vision/Perception Overall Vision/ Perception: Within Functional Limits Cognition Overall Cognitive Status: Within Functional Limits Cognitive Assessment: Arousal/ Alertness;Behavior;Following Commands Arousal/Alertness: Fluctuating alertness Orientation Level: Oriented X4 Behavior: Cooperative;Apprehensive Following Commands: Follows all commands and directions without difficulty Neuromuscular Overall Sensation: Within Functional Limits Additional Comments: B LE intact to LT Upper Extremity UE Assessment: Strength WFL ( at least 3+/5) as observed during functional activity Lower Extremity Lower Extremity LE Assessment: Impaired Impairments: Strength LE Strength: Gross Muscle Test R Gross Muscle Test L ROM limitations Hip flexion 4/5 3-/5 none Knee flexion 4/5 3+/5 Knee extension 4/5 3/5 Ankle dorsiflexion 4+/5 4+/5 Functional Mobility Pt refusing functional assessment. He is able to use B UE to scoot himself up to HOB using railingsindependently. Position after Therapy/Safety Handoff Position after treatment and safety handoff Position after therapy session: Bed Details: Call light/ needs within reach Alarms: Bed Alarms Status: Activated and interfaced unchanged from previous settings Goals Goals to be met by: 06/05/20 Patient will transition from supine to sit: Will tolerate assessment Patient will transfer from sit to stand: Will tolerate assessment Patient will ambulate: Will tolerate assessment Pt Will report pain with functional mobility at: 4/10 or less Long-term goal to be met by: 06/12/20 Custodial Goal : = STG Patient Stated Goal #1: decreased pain Patient/Family Education Educated patient on the role of physical therapy, goals, plan of care and importance of increased activity and fall prevention strategies, including use of call light; patient verbalized understanding, needed cues and will need reinforcement. Handout(s) issued: none. Plan Plan Treatment/Interventions: LE strengthening/ROM, Patient/family training, Gait training, Continued evaluation, Therapeutic Activity PT Frequency: minimum 2x/week The plan of care and recommendations assesses the patient's and/or caregiver's readiness, willingness, and ability to provide or support functional mobility and ADL tasks as needed upon discharge. Eliz Wright, PT, MPT [facility] Physical Therapist Pager [phone] Office [phone] Shift: 7:00a- 3:30p M-F Time Start Time: 1010 Stop Time: 1030 Time Calculation (min): 20 min Charges $PT Evaluation Mod Complex 30 Min: 1 Procedure Problem List Patient Active Problem List Diagnosis ??? GERD (gastroesophageal reflux disease) ??? Hypertension ??? Diabetes mellitus (CMS Dx) ??? Liver transplanted (CMS Dx) ??? Liver transplant recipient (CMS Dx) ??? Encounter for therapeutic drug level monitoring ??? Immunosuppression (CMS Dx) ??? Peripheral edema ??? Unstable angina pectoris (CMS Dx) ??? Abnormal stress test ??? S/P liver transplant (CMS Dx) ??? CKD (chronic kidney disease) stage 3, GFR 30-59 ml/min ??? Oqwfq-jy-hfymxtp kidney injury (CMS Dx) ??? Metabolic acidosis ??? Group C streptococcal infection ??? Esophagitis, CMV (CMS Dx) ??? Pre-op evaluation ??? Anemia ??? Osteomyelitis (CMS Dx) Past Medical History Past Medical [...] PROCEDURE 10/2016 ??? TIPS Revision 04/2017 * Jenny Alaniz MD - 05/29/2020 6:19 AM EDT [facility] DEPARTMENT OF NEUROSURGERY INPATIENT PROGRESS NOTE Leoncio Rollins Jr. [id number] 1975 NEUROSURGERY ATTENDING: Dr. Villalpando INTERVAL HISTORY: *NAEON *Patient still complaining of anterior thigh pain EXAMINATION Temp: [98 ??F (36.7 ??C)-98.8 ??F (37.1 ??C)] 98 ??F (36.7 ??C) Heart Rate: [90-121] 102 Resp: [16-18] 16 BP: (82-138)/(49-97) 111/62 *GENERAL: Well developed, well nourished, obese, dishelved male *WOUND: *HEENT: NC/AT, trachea midline *CV: Normocardic, no edema, peripheral pulses intact, adequate cap refill *PULM: Respirations unlabored on RA *ABD: Soft, NTTP, no r/g *MSK: No obvious gross deformities appreciated *NEUROLOGICAL: GCS 4-5-6, AOx3 --Cranial Nerves: CN II-XII grossly intact, PERRL, EOMI, face symmetric, tongue midline *Motor: FCCx4, graded motor exam as below D EE EF WE WF FE FF HI RUE: 5 5 5 5 5 5 5 5 LUE: 5 5 5 5 5 5 5 5 HF KE KF DF PF EHL RLE: 5 5 5 5 5 5 LLE: 5 5 5 5 5 5 --Sensation: Sensation intact to light touch and symmetric in bilateral upper and lower extremities. Pain to the left anterior thigh. --Reflex: No hyperreflexia. 4 beats of clonus on the RLE. --Tone: No abnormality of tone appreciated in bilateral upper or lower extremities. --Rectal: Deferred Imaging Review No interval imaging. ASSESMENT & PLAN 45 y.o. male with a recent L4-5 Lami/Discectomy who presents with low back pain and pain limited weakness. CT lumbar spine from an outside spine concerning for continued discitis. Patient neurologically intact on exam. PLAN: - MRI lumbar spine without contrast pending - Would recommending obtaining imaging from [facility] for comparison. - Recommending trending ESR/CRP - Blood cultures: NGTD - Continue to monitor Cr function because a contrasted scan would be beneficial - Continue abx per primary team/transplant infectious disease (S. Epi pathology from outside documentation) - Neurosurgery will follow peripherally at this time; please page once imaging complete If further questions or concerns should arise, do not hesitate to contact the neurosurgery residenton call, [phone]. Jenny Alaniz Neurosurgery Resident [id number] Cosigned by Sancho Kathleen DO at 05/29/2020 6:26 AM EDT Associated attestation - Sancho Kathleen DO - 05/29/2020 6:26 AM EDT I reviewed the resident's note and agree. * Kelly Wyatt RRT - 05/29/2020 1:48 AM EDT Patient stated he did not want to wear CPAP tonight. Resting comfortably on RA. * Heena Adler RN - 05/29/2020 1:13 AM EDT Attempted to place second IV, RN unable to obtain. US guided IV consult placed. * Ghassan Coffey MD - 05/28/2020 7:47 PM EDT Images from the original note were not included. Cross Cover Note: Was called by nursing for black emesis Patient without complaints other than back pain that brought in him into the hospital. Denies use of NSAIDs. Reports he has not had a bowel movement in last 7 days. Vitals: 05/28/20 1900 BP: (!) 116/97 Pulse: 119 Resp: 16 Temp: 98.2 ??F (36.8 ??C) SpO2: 98% Patient has been tachycardiac on presentation. Lab Results Component Value Date WBC 6.9 05/28/2020 HGB 7.9 (L) 05/28/2020 HCT 24.2 (L) 05/28/2020 MCV 92.2 05/28/2020 PLT 340 05/28/2020 On exam: Emesis as below Significant anxiety. Abdomen soft, non-tender, non-distended Plan: Paged GI, discussed patient with fellow Repeat CBC now, type and screen already ready for OR tomorrow Start IV PPI BID Continue tele GHASSAN COFFEY 05/28/2020 7:47 PM * Nani Brooks PharmD - 05/28/2020 1:33 PM EDT Images from the original note were not included. [facility] Clinical Pharmacy Service: Vancomycin Monitoring Consult --Assessment and Plan-- Patient is ESRD/HD dependent; unknown timing of last vancomycin dose given at OSH. Will obtain vancomycin level prior to repeating additional doses. Nani Brooks PharmD, [facility] Clinical Lute Packer Or Applier, Internal Medicine Please contact me via [email or web address] Secure Chat (Cable-Sense) or office phone ([phone]). You can reach the Clinical Pharmacist mortgage loan computation clerk using pager number [phone]. Indication: possible spinal OM Goal trough: pre HD 15-20 mg/L Current Anti-Infectives Dose Frequency Start End cefepime (MAXIPIME) 1 g in sodium chloride 0.9% 50 mL IVPB ADDaptor 1 g Every 24 hours 05/28/2020 Admin Instructions: For Hemodialysis patients - on dialysis days, please administer Cefepime dose after completion of hemodialysis.
Use ADDaptor product - Mix Thoroughly Before Administration Route: Intravenous vancomycin (VANCOCIN) 15 mg/kg in sodium chloride 0.9 % 250 mL IVPB 15 mg/kg Every 24 hours 05/28/2020 Admin Instructions: Contact pharmacy if there is a question/concern of whether vancomycin should begiven based on serum drug levels. Route: Intravenous documented within (last 72 hours) None --Objective Data-- Vitals: 05/28/20 1100 BP: 123/87 Pulse: 112 Resp: 16 Temp: 98.6 ??F (37 ??C) TempSrc: Tympanic SpO2: 100% No intake/output data recorded. WBC, BUN, Creatinine (Last 7 days) No relevant labs found Patient weight not recorded --Cultures-- Microbiology Results Date and Time Order Name Sensitivity Status Organisms Specimen ID Source 05/28/2020 1404 #2 Blood culture-Peripheral In process [id number] Peripheral --Vancomycin Concentrations-- Lab Results (Last 7 days) No relevant labs found * Ara Watson MD - 05/28/2020 1:48 AM EDT [facility] - [facility] Department of Internal Medicine Outside Transfer / Direct Admission Note Referring Facility: Name: [facility] Records in Care Everywhere: No History, as reported: Leoncio Rollins Jr. is a 45 y.o. male with a past medical history of liver cirrhosis s/p transplant (2017 at ), who presents with complaints of weakness and low backache. Patient reportedly had a spinal surgery (lumbar laminectomy, discectomy and posterior decompressionat L4-L5 level at [facility] last month (notes available in care everywhere). He was discharged home at the end of last month. He was being involved with PT and OT and was able to ambulate with assistance. However, he has been feeling progressively weaker in the past couple of days and has been having low back ache. Patient presented to the ED of [facility] with these compliants. The ED tried to transfer the patient to [facility], however, there was no bed available. As the patient has his transplant care done at , transfer to [facility] was requested. Objective, as reported: Last Known Vitals: Temp: 98.6 HR: 103 BP: 142/79 RR: 20 SpO2: 95% on RA Pertinent Physical Exam Findings Area of tenderness and redness at low back. No obvious significant noted. Pertinent Lab Studies: WBC 6.1 Hgb 8.1 Platelets 343 Na 137 K 5.2 Cl 98 CO3 22 BUN 84 Cr 13.5 Glucose 160's Culture data: blood culture sent and is in process. Pertinent Diagnostic Findings: CXR: cardiomegaly. No acute process EKG: no acute changes CT: CT of lumbar spine showed findings concerning for osteomyelitis. Concern for possible soft tissue infection in the lumbar region MRI: NA Interventions: The referring facility has performed the following interventions: Sent blood cultures, started empiric iv vanc. Gave iv dilaudid for pain. No iv fluids due to ESRD. Summary & Recommendations: Transfer was accepted to the Internal Medicine service. Level of care: Floor Upon arrival to [facility], receiving team to consider the following: -obtain OSH images and get it uploaded in PACS and a reading from our radiologist -follow OSH blood cultures results -consider broad spectrum antibiotics, preferably vanc and cefepime. Consult transplant ID as well as the patient is significantly immunosuppressed. -strongly consider consulting ortho spine vs neuro spine -consult nephrology for dialysis needs -consult hepatology for adjusting transplant meds Signed: ARA WATSON MD Attending Physician Department of Internal Medicine documented in this encounter H&P Notes * Bayron Dawson MD - 05/29/2020 2:22 PM EDT [facility] PRE-SEDATION ASSESSMENT, HISTORY & PHYSICAL Date: 05/29/2020 Leoncio Rollins Jr. is a 45 y.o. year old male Pre-Procedure Diagnosis/Procedure Indication: Concern for upper GI bleed, coffee ground emesis Planned Procedure: EGD NPO for solids >8 [...] Unanswered Patient Active Problem List Diagnosis ??? GERD (gastroesophageal reflux disease) ??? Hypertension ??? Diabetes mellitus (CMS Dx) ??? Liver transplanted (CMS Dx) ??? Liver transplant recipient (CMS Dx) ??? Encounter for therapeutic drug level monitoring ??? Immunosuppression (CMS Dx) ??? Peripheral edema ??? Unstable angina pectoris (CMS Dx) ??? Abnormal stress test ??? S/P liver transplant (CMS Dx) ??? ESRD (end stage renal disease) (CMS Dx) ??? Group C streptococcal infection ??? Esophagitis, CMV (CMS Dx) ??? Pre-op evaluation ??? Anemia ??? Osteomyelitis (CMS Dx) Past Surgical History Past Surgical [...] Take 200 mg by mouth at bedtime. Yes Historical Provider, cycloSPORINE modified (NEORAL) 25 MG capsule Take 2 capsules (50 mg total) by mouth 2 times a day. 03/09/20 Yes Jack Ordoñez MD doxazosin (CARDURA) 8 MG tablet 8 mg daily. 05/12/18 Yes Historical Provider, entecavir (BARACLUDE) 0.5 MG tablet Take 1 tablet (0.5 mg total) by mouth every 7 days. 01/27/20 YesJack Ordoñez MD famotidine (PEPCID) 20 MG tablet Take 20 mg by mouth daily. Yes Historical Provider, gabapentin (NEURONTIN) 100 MG capsule Take 4 capsules (400 mg total) by mouth daily. 07/01/19 Yes Malinda Rhodes MD hydrALAZINE (APRESOLINE) 50 MG tablet Take 100 mg by mouth 3 times a day. Yes Historical Provider, insulin NPH isoph U-100 human (HUMULIN N NPH INSULIN KWIKPEN) 100 unit/mL (3 mL) InPn Inject subcutaneously 20 units in the AM and 8 units in the PM. Patient taking differently: Inject subcutaneously 48 units in the AM and 24 units in the PM as needed 07/01/19 Yes Malinda Rhodes MD mycophenolate (CELLCEPT) 250 mg capsule Take 1 capsule (250 mg total) by mouth 2 times a day. 11/12/19 Yes Jack Ordoñez MD NIFEdipine (PROCARDIA-XL) 90 MG (OSM) 24 hr tablet Take 90 mg by mouth 2 times a day. 04/23/18 Yes Historical Provider, ondansetron (ZOFRAN-ODT) 4 MG disintegrating tablet every 8 hours as needed. 04/11/18 Yes Historical Provider, polyethylene glycol (MIRALAX) 17 gram packet Take 17 g by mouth 2 times a day as needed. 01/17/19 YesNiurka Valles MD ALPRAZolam (XANAX) 1 MG tablet Take by mouth. Historical Provider, blood sugar diagnostic Strp Use to test blood sugar up to 4 times a day. Diagnosis for use: E 9.65.For use with One Touch Verio meters. 10/18/17 Bere Feng CNP blood-glucose meter (Optrace VERIO SYSTEM) Misc Use as instructed. 10/18/17 Bere Feng CNP ergocalciferol (VITAMIN D2) 50,000 unit capsule Take 50,000 Units by mouth. Twice a week Historical Provider, lancets (Optrace DELICA LANCETS) 33 gauge Misc Use 1 strip as directed 4 times daily before meals and at bedtime. 10/18/17 Bere Feng CNP pen needle, diabetic 32 gauge x 5/32 Ndle Use as directed to inject insulin 4 times daily. 10/16/17 Bere Feng CNP Allergies: Codeine Sulfate Codeine Abbreviated Review of Systems (ROS) Functional Capacity: AQUINO ACTIVITY SCALE: 5 - Walking four miles per hour; social dancing; washing a car. Chest Pain: no Shortness of Breath/Dyspnea or Exertion: no Recent URI: no Airway, ASA Score & Sedation Specific History Concerns Airway: Mallampati:: III Mouth Opening:: >2 FB TM distance:: > = 3 FB Neck ROM:: Full ASA Score: ASA: III -patient with moderate systematic disease with functional limitations This patient was reevaluated immediately prior to sedation administration. Focused Physical Exam: Height ; Weight ; BMI Body mass index is 43.54 kg/m??. Vitals: 05/29/20 1242 BP: 93/65 Pulse: 122 Resp: 18 Temp: 97.9 ??F (36.6 ??C) SpO2: 90% Neuro: AOx3, no focalization Cardiovascular: RRR, no murmurs Respiratory: CTAB, no distress Sedation Plan: MAC Antibiotic prophylaxis is not indicated. Cosigned by Rashid Winchester MD at 05/30/2020 8:04 AM EDT Associated attestation - Rashid Winchester MD - 05/30/2020 8:04 AM EDT I saw and evaluated the patient. I agree with the findings and the plan of care as documented in the fellow's note. * Cristóbal Faith MD - 05/28/2020 12:32 PM EDT Department of Internal Medicine History & Physical Patient: Leoncio Rollins Jr. CSN: [id number] Chief Complaint Back pain History of Present Illness Leoncio Rollins Jr. is a 45 y.o. male with a history of ESRD on HD at home ([facility]), SAL cirrhosis s/p liver transplant 2018, pulmonary HTN, JC, DM2, HTN, obesity presenting to the hospital as direct admission with complaint of subacute low back pain and weakness following spinal surgery. Patient underwent spinal surgery (lumbar laminectomy, discectomy and posterior decompression at L4-L5) at [facility] 04/29 per patient report. Following the surgery, he was discharged with home PT/OT and found it difficult to work with them due to worsening back pain recently. He denies fevers, chills, shortness of breath, cough, chest pain. He denies changes in sensation in his lower extremities, describes minimal weakness mostly in the setting of lower extremity pain, and denies urinary or bladder incontinence or retention. He presented to the ED at [facility] with these symptoms and CT lumbar spine concerning for L5-S1 discitis and osteomyelitis with abnormal soft tissue and fluid density of posterior paraspinous tissues L3-S1 with apparent extension into the central canal at L5, suspicious for soft tissue infection. Review of Systems Review of Systems Constitutional: Negative for chills, fever and malaise/fatigue. HENT: Negative for congestion, ear discharge and hearing loss. Eyes: Negative for blurred vision, pain and discharge. Respiratory: Negative for cough, sputum production and shortness of breath. Cardiovascular: Negative for chest pain, palpitations and leg swelling. Gastrointestinal: Positive for constipation. Negative for abdominal pain, diarrhea, nausea and vomiting. Genitourinary: Negative for dysuria, frequency and urgency. Musculoskeletal: Positive for back pain. Negative for falls, myalgias and neck pain. Skin: Negative for itching and rash. Neurological: Negative for sensory change, focal weakness and loss of consciousness. Past Medical History Past Medical History: Diagnosis [...] file Gets together: Not on file Attends jainism service: Not on file Active member of [...] Feng CNP blood-glucose meter (ONETOUCH VERIO SYSTEM) [facility] Use as instructed. 10/18/17 Bere Feng CNP carBAMazepine (TEGRETOL) 200 mg tablet Take 200 mg by mouth at bedtime. Historical Provider, cloNIDine HCl (CATAPRES) 0.1 MG tablet Take 1 tablet (0.1 mg total) by mouth 2 times a day. Patient taking differently: Take 0.1 mg by mouth if needed. 07/25/19 Keon Qureshi MD cycloSPORINE modified (NEORAL) 25 MG capsule Take 2 capsules (50 mg total) by mouth 2 times a day. 03/09/20 Jack Ordoñez MD doxazosin (CARDURA) 8 MG tablet 8 mg daily. 05/12/18 Historical Provider, entecavir (BARACLUDE) 0.5 MG tablet Take 1 tablet (0.5 mg total) by mouth every 7 days. 01/27/20 Jack Ordoñez MD ergocalciferol (VITAMIN D2) 50,000 unit capsule Take 50,000 Units by mouth. Twice a week Historical Provider, famotidine (PEPCID) 20 MG tablet Take 20 mg by mouth daily. Historical Provider, gabapentin (NEURONTIN) 100 MG capsule Take 4 capsules (400 mg total) by mouth daily. 07/01/19 Sha Rhodes MD hydrALAZINE (APRESOLINE) 50 MG tablet Take 100 mg by mouth 3 times a day. Historical Provider, insulin NPH isoph U-100 human (HUMULIN N NPH INSULIN KWIKPEN) 100 unit/mL (3 mL) InPn Inject subcutaneously 20 units in the AM and 8 units in the PM. Patient taking differently: Inject subcutaneously 48 units in the AM and 24 units in the PM as needed 07/01/19 Malinda Rhodes MD lancets (ONETOUCH DELICA LANCETS) 33 gauge Misc Use 1 strip as directed 4 times daily before meals and at bedtime. 10/18/17 Bere Feng CNP liraglutide (VICTOZA 2-GALI) 0.6 mg/0.1 mL (18 mg/3 mL) PnIj Inject 1.8 mg subcutaneously daily. Historical Provider, mycophenolate (CELLCEPT) 250 mg capsule Take 1 capsule (250 mg total) by mouth 2 times a day. 11/12/19 Jack Ordoñez MD NIFEdipine (PROCARDIA-XL) 90 MG (OSM) 24 hr tablet Take 90 mg by mouth 2 times a day. 04/23/18 Historical Provider, ondansetron (ZOFRAN-ODT) 4 MG disintegrating tablet every 8 hours as needed. 04/11/18 Historical Provider, pen needle, diabetic 32 gauge x Ndle Use as directed to inject insulin 4 times daily. 10/16/17 Bere Feng CNP polyethylene glycol (MIRALAX) 17 gram packet Take 17 g by mouth 2 times a day as needed. 01/17/19 Niurka Valles MD Inpatient Meds: Scheduled: ??? carBAMazepine 200 mg Oral Nightly (2099) ??? ceFEPime (MAXIPIME) IV extended infusion 1 g Intravenous Q24H ??? famotidine 20 mg Oral Daily 0900 ??? gabapentin 400 mg Oral Daily 0900 ??? heparin 5,000 Units Subcutaneous 3 times per day ??? hydrALAZINE 100 mg Oral TID ??? HYDROmorphone ??? insulin lispro 0-12 Units Subcutaneous TID AC ??? NIFEdipine 90 mg Oral BID ??? polyethylene glycol 17 g Oral BID ??? senna-docusate 2 tablet Oral Nightly (2099) ??? terazosin 10 mg Oral Nightly (2099) Continuous: PRN: acetaminophen, ALPRAZolam, dextrose 50 % in water (D50W) OR dextrose 50 % in water (D50W), glucose Vital Signs Temp: [98.6 ??F (37 ??C)] 98.6 ??F (37 ??C) Heart Rate: [112] 112 Resp: [16] 16 BP: (123)/(87) 123/87 No intake or output data in the 24 hours ending 05/28/20 1449 Physical Exam Vital signs reviewed. General: Well appearing, age appropriate male, in no acute distress JOLANTA: Normocephalic, atraumatic, PERRL, EOMs intact Neck: No JVD, trachea midline Heart: Regular rate and rhythm, no murmurs, rubs, gallops Lungs: Clear to auscultation bilaterally, no wheezes or rales, normal work of breathing Back: Symmetric, no CVA tenderness, no spinal or paraspinal tenderness Abdomen: Soft, obese, non-tender, non-distended, scar present from prior liver transplant Extremities: No clubbing, no edema, AVF present on L UE for dialysis, thrill auscultated Skin: No rashes, no wounds, no jaundice Neuro: AOx4, moves all 4 extremities, 5/5 strength in flexion/extension of knee, dorsiflexion and plantarflexion, Strength 3/5 in hip flexion limited due to pain, normal sensation of lower extremities, follows commands Psych: Alert and appropriate, normal affect Laboratory Data CBC 03/12/2020 \ 11.6 / 5.9 \ / 242 / \ / 33.6 \ Differential 03/12/2020 N 59.5 L 29.8 M 8.8 E 1.8 B 0.1 Renal 05/28/2020 137 96 88 / ___ __ / 115 \ 5.5 23 13.63 \ Ca 9.5 (05/28/2020) Mg 1.9 (05/28/2020) Phos 8.3 (05/28/2020) Lipids Lab Results Component Value Date CHOLTOT 236 (H) 01/27/2020 TRIG 303 (H) 01/27/2020 HDL 32 (L) 01/27/2020 LDL 143 01/27/2020 LFTs 05/28/2020 \ 0.4 / \ 0.12 / 12 \ / 18 / \ / 114 \ PT/INR/PTT - 05/28/2020 PT 16.0 INR 1.3 PTT 28.6 Lab Results Component Value Date TSH 3.59 01/27/2020 FREET4 1.03 10/20/2017 Diagnostic Studies None here. CT Lumbar WO at OSH: - postoperative changes realted to posterior decompressive resection at L5 - Findings suspicious for L5-S1 discitis and osteomyelitis. - Abnormal soft tissue and fluid density in posterior paraspinous tissues at L3- S1 with apparent extension into the central canal at L5 level, suspicious for soft tissue infection Assessment & Plan Leoncio Rollins Jr. is a 45 y.o. male being admitted to the hospital for concern for osteomyelitis. Medical problems being addressed in this encounter include the following: Principal Problem: Osteomyelitis (CMS Dx) Active Problems: Liver transplant recipient (CMS Dx) #Concern for Osteomyelitis Patient with recent spinal surgery now with back pain, difficulty walking and imaging findings concerning for osteomyelitis and soft tissue infection. Patient neurologically in tact. Patient receivedone dose of vanc and zosyn at OSH. ESR 62, CRP 190. - vancomycin, cefepime to cover empirically - pharmacy consult for vancomycin dosing - MRI W and WO, lumbar spine to better characterize CT findings - transplant ID consult, appreciate recommendations - spine surgery consult, appreciate recs - blood cultures x2 - follow-up blood cultures at OSH - NGTD #ESRD on iHD Patient dialyzes on , , , , at home with AVF in E. Last dialysis on Monday and he was having issues with the machine and could not complete full run. Not eligible for transplant due to BMI >40. - CBC, renal, Mg - BUN 88, K 5.5 - EKG without changes, no AMS - patient would benefit from dialysis but it is not emergent - nephrology consult for dialysis continuation #SAL Cirrhosis s/p liver transplant 2017 No acute decompensation. Patient follows with Dr. Ordoñez, last seen 12/2019. Previously on tacrolimus for IS but experienced AMS so switched to cyclosporine 50 mg BID and cellcept 250 mg BID - hepatic function panel, PT-INR, renal panel - liver consult - holding immunosuppression for now in setting of infection, will discuss with liver transplant regarding possible dose reduction. - lifelong entecavir 0.5 mg weekly due to high risk donor (HBV ALEXANDRA +, HCV Ab+, ALEXANDRA negative) #Type 2 Diabetes Mellitus Home regimen humalin 48u qAM, 24u nightly. Last HgA1c 6.9% 01/27/2020. - HDSSI, for now ACHS fingersticks - gabapentin and tegretol for neuropathy #GERD - continue home famotidine #HTN On hydralazine TID, clonidine as needed on dialysis day, nifedipine BID, doxazosin at night - continue hydralazine, nifedipine, hytrin (therapeutic interchange for doxazosin) #Pulmonary Hypertension On echo 07/2019 - PAP estimated to be 50 mmg Hg, likely due to JC/OHS. - avoid hypoxia, NC as needed - appears euvolemic on exam - BiPAP at night #JC - BiPAP at night Nutrition: Diet Orders Diet NPO past midnight starting at 05/28 7949 Diet renal starting at 05/28 1315 Code Status: Full Code Signed: CRISTÓBAL FAITH MD 05/28/2020, 2:49 PM Cosigned by Abbie Cifuentes MD at 05/29/2020 12:14 PM EDT Associated attestation - Abbie Cifuentes MD - 05/29/2020 12:14 PM EDT I saw, examined and discussed today (05/29/2020) on rounds with the resident team. I personally interviewed and examined the patient independently. I reviewed the chart, including labs, imaging, as well as consult notes, and documentation by the resident and agree as documented unless otherwise stated below: # Discitis/concern for osteomyelitis - MRI was not able to be performed overnight because patient refused from claustrophobia. Will try again today with adequate anxiolytic. Staph epi from lumbar culture at OSH in April. Appreciate help of all the consult services. # black emesis - overnight. Currently hemodynamically stable. Small CBC drop. Hepatology/GI following with EGD scheduled for today. Abbie Cifuentes MD [facility] Internal Medicine [facility] Team Attending [facility] Department of Internal Medicine 05/29/2020 documented in this encounter Procedure Notes * Juaquin Delacruz DO - 06/03/2020 8:45 AM EDT Interventional Radiology Post-Procedure Note Date: 06/03/2020 Patient: Leoncio Rollins Jr. : 1975 IR Procedure(s) Performed: CT guided fluid aspiration Operators: DO Heber MARROQUIN MD Pre-operative diagnosis: Paraspinal fluid collection Post-operative diagnosis: Same Intra-procedural Medications: Lidocaine Fentanyl Findings: Technically successful CT guided fluid aspiration of a paraspinal collection. Collection was too small for drainage catheter placement. However, the collection was tapped dry. Specimens removed: Approximately 12 mL of gaytan purulent fluid was drained. Estimated Blood Loss: Minimal (less than 15mL) Complications: None Recommendations/Follow-up: ??? Follow up fluid cultures. ??? If follow up imaging is considered, MRI of the lumbar spine with and without IV contrast would be ideal. Please refer to full dictated Interventional Radiology report for details of findings/procedures, which can be located in [facility] Procedures (or [facility] Imaging) Tabs. Case was reviewed with Heber Silva MD Plan discussed with provider Dr Jay Salinas from [facility] team 06/03/2020, 8:53 AM. Please call with any questions. JUAQUIN DELACRUZ DO Vascular & Interventional Radiology 06/03/2020, 8:53 AM [facility]: [phone] * Gem Kaur MD - 06/02/2020 9:54 AM EDT Interventional Radiology Post-Procedure Note Date: 06/02/2020 Patient: Leoncio Rollins Jr. : 1975 IR Procedure(s) Performed: LUE AV Fistulagram Operators: GEM KAUR MD, VIR Fellow Liberty Winchester MD Pre-operative diagnosis: Clots from AVF during dialysis Post-operative diagnosis: Patent AVF Intra-procedural Medications: 2 mg Versed IV 50 mcg Fentanyl IV 1% Lidocaine SubQ Findings: 1. AVF venogram and reflux arteriogram demonstrating good inflow and outflow 2. Crossing superificial veins in the upper forearm Specimens removed: None Estimated Blood Loss: Minimal (less than 15mL) Complications: None Recommendations/Follow-up: 1. AVF is ready for immediate use 2. Ultrasound guided marking of the LUE forearm for safe zone of dialysis access Please refer to full dictated Interventional Radiology report for details of findings/procedures, which can be located in [facility] Procedures (or [facility] Imaging) Tabs. IR procedure was reviewed with Liberty Winchester MD Please call with any questions. GEM KAUR MD Vascular & Interventional Radiology 06/02/2020,9:54 AM [facility]: [phone] * Bayron Dawson MD - 05/29/2020 3:26 PM EDT EGD WITH BIOPSY Procedure Note Leoncio Rollins Jr. 05/28/2020 - 05/29/2020 Pre-op Diagnosis: Coffee ground emesis Post-op Diagnosis: Large amount of coffee ground fluid in stomach. Patient had large emesis during EGD. Proceeded to intubation and reinserted scope. No evidence of active bleeding identified. Noted circumferential adenomatous mass- like lesion in the distal esophagus at the GE junction. Biopsied. Procedure(s): EGD WITH BIOPSY Recommendations: - [facility] patient to [facility] for ongoing care - Clear liquid diet - Advance as tolerated tomorrow - Transition to PPI PO daily - Will follow pathology report Surgeon(s): Rashid Winchester MD Anesthesia: General Staff: Fellow: Bayron Dawson MD Relief Endoscopy Nurse: Liat Moreno RN Ged Preparation Teacher: Steve Amin Estimated Blood Loss: Minimal Specimens: none Drains: none There were no complications unless listed below. Bayron Dawson Date: 05/29/2020 Time: 3:26 PM Cosigned by Rashid Winchester MD at 05/30/2020 8:04 AM EDT Associated attestation - Rashid Winchester MD - 05/30/2020 8:04 AM EDT I saw and evaluated the patient. I agree with the findings and the plan of care as documented in the fellow's note. 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 Noted to have coffee ground emesis overnight with Hgb drop from baseline around 9 to 7.3. Here for evaluation of upper GI bleed. Providers: Bayron Gupta (Fellow) Referring MD: Medicines: General Anesthesia Complications: No immediate complications. Procedure: Pre-Anesthesia Assessment: [...] proposed procedure were verified by the physician in the procedure room. Mental Status Examination: [...] procedure. The anesthesia plan was to use general anesthesia. Immediately prior to administration of medications, the [...] The patient tolerated the procedure well. Findings: Cirumferential adenomatous-like mucosal changes characterized by nodularity were found in the lower third of the esophagus at 35 cm. Biopsies were taken with a cold forceps for histology. Estimated blood loss was minimal. The exam of the esophagus was otherwise normal. Hematin (altered blood/yusohy-xfvnus-zwcm material) was found in the gastric body. Also noted pill in the stomach. Lavage of the area was performed using a large amount, resulting in clearance with adequate visualization. There is no endoscopic evidence of bleeding in the entire examined stomach. The exam of the stomach was otherwise normal. The cardia and gastric fundus were normal on retroflexion. The duodenal bulb, first portion of the duodenum, second portion of the duodenum and third portion of the duodenum were normal. Impression: - Circumferential adenomatous-like mucosa in the esophagus. Biopsied. - Hematin (altered blood/ryljfv-fihyxp-wpma material) in the gastric body. No evidence of active bleeding. - Normal duodenal bulb, first portion of the duodenum, second portion of the duodenum and third portion of the duodenum. - Source of GI bleed was not identified. Possible bleeding from nodular mucosa which was friable after biopsy. Recommendation: - Return patient to [facility] for ongoing care. - Clear liquid diet today. - Continue present medications. - Continue PPI PO daily. - Await pathology results. - Repeat upper endoscopy for surveillance based on pathology results. Procedure Code(s): --- Professional --- 79418, GC, Esophagogastroduodenoscopy, flexible, transoral; with biopsy, single or multiple Diagnosis Code(s): --- Professional --- K22.8, Other specified diseases of esophagus K92.2, Gastrointestinal hemorrhage, unspecified K92.0, Hematemesis CPT copyright 2019 [employer]. All rights reserved. The codes documented in this report are preliminary and upon [employer] officer review may be revised to meet current compliance requirements. Attending Participation: I was present for the entire viewing portion, including introduction and removal of the scope. Rashid WINCHESTER, 05/31/2020 12:57:08 PM Bayron Porter MD Bayron Barba, 05/29/2020 4:01:12 PM Total Procedure Duration Time 0 hours 22 minutes 17 seconds Scope In: 2:47:11 PM Scope Out: 3:09:[address] [place] [address] documented in this encounter Consult Notes * Rose Lee RN - 06/06/2020 1:41 PM EDTAssociated Order(s): IP Consult to [facility] IP Consult [...] has nothing else to stick. RN updated. * Annie Reyna RN - 06/04/2020 12:54 PM EDTAssociated Order(s): IP CONSULT TO PICC TEAM Pt is not candidate for picc and/or midline placement secondary to ongoing dialysis and elevated creatinine per policy. Please refer to IR for renal appropriate access. * Man Menjivar MD - 06/03/2020 1:36 PM EDTAssociated Order(s): IP CONSULT TO PAIN MANAGEMENT Anesthesiology Inpatient Pain Service Consultation Note 06/03/2020 Patient Name: Leoncio Rollins Jr. 45 y.o. male : 1975 Consulting Service: Medicine Chief Complaint: back pain HPI: 45 yo M with ESRD, cirrhosis s/p transplant 2018, pulm HTN, JC, DM2, HTN, who presents with osteomyelitis L4-5 and epidural abscess after recent back surgery. IPS is consulted for medication management. Patient endorses lumbar back pain with radiculopathy to b/l legs, R>L. Pain is aching, shooting. Denies weakness, numbness, bowel/bladder incontinence. Review of Systems: negative except as per HPI Allergies: Allergies Allergen Reactions ??? Codeine Sulfate Hyper ??? Codeine Other (See Comments) Becomes hyper Physical Exam: General appearance: alert, well appearing, and in no distress Chest: No tachypnea CV: No LE edema/varicosities Neuro/Muscular skeletal: Alert and oriented X 3, normal strength and tone. No tenderness to palpation lower back. Sensation b/l legs grossly intact to light touch. Labs: Lab Results Component Value Date WBC 6.0 06/03/2020 HGB 7.6 (L) 06/03/2020 HCT 23.1 (L) 06/03/2020 MCV 92.2 06/03/2020 PLT 335 06/03/2020 Lab Results Component Value Date INR 1.3 (H) 06/02/2020 INR 1.2 (H) 06/01/2020 INR 1.4 (H) 05/31/2020 PROTIME 16.3 (H) 06/02/2020 PROTIME 15.9 (H) 06/01/2020 PROTIME 17.0 (H) 05/31/2020 Assessment/Plan: - Not a candidate for any regional/neuraxial pain procedure - Schedule tylenol. Increase as appropriate to 975 mg q6 hr - Up-titrate gabapentin as tolerated by patient. - Recommend scheduled robaxin. Robaxin does not require renal dose adjustment. Up-titrate as tolerated. - Heat/cold per patient preference. Thank you for the interesting consult. Man Menjivar MD Anesthesiology PGY-3 Inpatient Pain Service Pager - [phone]) Cosigned by Nikolas Garcia MD at 06/05/2020 6:30 AM EDT Associated attestation - Nikolas Garcia MD - 06/05/2020 6:30 AM EDT I saw and examined the patient, and discussed the case with the resident/fellow and agree with the findings and plan as documented in the resident/fellow's note. Name: Nikolas Garcia Date of Service: 06/03/2020 * Bob Gonzalez DO - 06/02/2020 9:32 AM EDT Interventional Radiology Consult Note Date: 06/03/2020 Patient: Leoncio Rollins Jr. : 1975 Primary Care Provider: Edgar Fournier MD Requesting Provider: [facility] Medicine Chief Complaint: Post op back pain with fluid Reason for Consult: Fluid aspiration IR Procedure Request Received and Reviewed. HPI: Leoncio Rollins Jr. is a 45 y.o. male with history of osteomyelitis/discitis s/p L4-5 laminectomy discectomy who presented with back pain. MRI of the lumbar spine demonstrated a small fluid collectionalong the surgical site, which may be postsurgical or a infectious process. Patient is currently empirically being treated with vancomycin and cefepime. IR consulted for fluid aspiration. Of note, patient had a fistulogram on 06/02 with no thrombosis noted. COVID-19 Status: SARS-CoV-2, FRANKLYN Date Value Ref Range Status 05/28/2020 Not Detected Not Detected Final Comment: This test is an amplified nucleic acid assay performed on a real time PCR platform. This test was developed and its performance characteristics determined by the [facility]. This test has not been cleared or approved by the FDA. This test has been authorized by the FDA under an Emergency Use Authorization (EUA). This test is used for clinical purposes. Thistest has been validated in accordance with the FDA's guidance document Policy for Diagnostic Testsfor Coronavirus Disease-2019 during the Public Health Emergency issued on October 28, 2019. This test is only authorized for use during the time specified by the declaration that circumstances exist ju stifying the authorization of the emergency use of in vitro diagnostic tests for detection of SARS-CoV2 virus and/or diagnosis of COVID-19 infection under section 564(B) (1) of the Act, 21 U.S.C. 360bbb-3 (b) (1) applies, unless authorization is terminated or revoked sooner. Test results have been sent to the [facility] in accordance with state requirements. For a healthcare provider fact sheet, see https://www.[employer].gov/media/137751/download. For a patient fact sheet, see https://www.[employer].gov/[place]/648162/download. History: Past Medical History: Diagnosis Date ??? [...] 05/29/2020 Procedure: EGD WITH BIOPSY; Surgeon: Rashid Winchester MD; Location: ENDOSCOPY; Service: Gastroenterology; Laterality: N/A; [...] Status Never Smoker Smokeless Tobacco Never Used Social History Substance and Sexual Activity Drug Use No Social History Substance and Sexual Activity Alcohol Use No Allergies: Allergies Allergen Reactions ??? Codeine Sulfate Hyper ??? Codeine Other (See Comments) Becomes hyper Home Medications: Prior to Admission medications Medication aspirin 81 MG chewable tablet calcitRIOL (ROCALTROL) 0.25 MCG capsule calcium acetate,phosphat bind, (PHOSLO) 667 mg capsule carBAMazepine (TEGRETOL) 200 mg tablet carBAMazepine ER (TEGRETOL XR) 200 MG 12 hr tablet cycloSPORINE modified (NEORAL) 25 MG capsule cycloSPORINE, SANDIMMUNE, 25 MG capsule doxazosin (CARDURA) 8 MG tablet entecavir (BARACLUDE) 0.5 MG tablet famotidine (PEPCID) 20 MG tablet fluticasone propionate (FLONASE) 50 mcg/actuation nasal spray gabapentin (NEURONTIN) 100 MG capsule gabapentin (NEURONTIN) 100 MG capsule hydrALAZINE (APRESOLINE) 50 MG tablet insulin NPH and regular human (HUMULIN 70/30 U-100 KWIKPEN) 100 unit/mL (70-30) InPn insulin NPH isoph U-100 human (HUMULIN N NPH INSULIN KWIKPEN) 100 unit/mL (3 mL) InPn lidocaine-prilocaine (EMLA) cream metoprolol tartrate (LOPRESSOR) 50 MG tablet mycophenolate (CELLCEPT) 250 mg capsule NIFEdipine (PROCARDIA-XL) 90 MG (OSM) 24 hr tablet ondansetron (ZOFRAN) 4 MG tablet ondansetron (ZOFRAN-ODT) 4 MG disintegrating tablet polyethylene glycol (MIRALAX) 17 gram packet vancomycin (VANCOCIN) 750 mg SolR ALPRAZolam (XANAX) 0.25 MG tablet ALPRAZolam (XANAX) 0.5 MG tablet ALPRAZolam (XANAX) 1 MG tablet blood sugar diagnostic Strp blood-glucose meter (Optrace VERIO SYSTEM) Misc cephALEXin (KEFLEX) 500 MG capsule cyclobenzaprine (FLEXERIL) 10 MG tablet doxycycline (MONODOX) 100 MG capsule ergocalciferol (VITAMIN D2) 50,000 unit capsule fluconazole (DIFLUCAN) 100 MG tablet gabapentin (NEURONTIN) 800 MG tablet gabapentin (NEURONTIN) 800 MG tablet hydrALAZINE (APRESOLINE) 100 MG tablet hydrALAZINE (APRESOLINE) 50 MG tablet hydrocortisone 2.5 % cream hydrOXYzine pamoate (VISTARIL) 25 MG capsule JANUVIA 100 mg tablet ketoconazole (NIZORAL) 2 % shampoo lancets (ONETOUCH DELICA LANCETS) 33 gauge Misc linezolid (ZYVOX) 600 mg tablet lisinopriL (PRINIVIL) 40 MG tablet methocarbamoL (ROBAXIN) 500 MG tablet metoprolol succinate (TOPROL-XL) 100 MG 24 hr tablet metoprolol tartrate (LOPRESSOR) 100 MG tablet oxyCODONE (ROXICODONE) 5 MG immediate release tablet oxyCODONE-acetaminophen (PERCOCET) 10-325 mg per tablet pen needle, diabetic 32 gauge x /32 Ndle proMETHazine (PHENERGAN) 25 MG tablet valACYclovir (VALTREX) 1000 MG tablet Current Medications: Scheduled Medications: carBAMazepine, 200 mg, Nightly (2099) ceFEPime (MAXIPIME) IV extended infusion, 1 g, Q24H cycloSPORINE modified, 50 mg, BID entecavir, 0.5 mg, Q7 Days epoetin giancarlo-epbx, 6,000 Units, Once per day on Mon gabapentin, 200 mg, Daily 0900 hydrALAZINE, 100 mg, 3 times per day insulin lispro, 0-5 Units, TID AC lidocaine, 1 patch, Q24H melatonin, 3 mg, Nightly (2099) NIFEdipine, 90 mg, BID pantoprazole, 40 mg, DAILY 0600 polyethylene glycol, 17 g, BID quetiapine, 12.5 mg, Nightly (2099) senna-docusate, 2 tablet, Nightly (2099) terazosin, 10 mg, Nightly (2099) IV Meds: PRN Medications: acetaminophen, 650 mg, Q8H PRN ALPRAZolam, 0.5 mg, Daily PRN dextrose 50 % in water (D50W), 25 mL, Q15 Min PRN Or dextrose 50 % in water (D50W), 50 mL, Q15 Min PRN glucose, 12 g, Q15 Min PRN HYDROmorphone, 0.5 mg, Q6H PRN ondansetron, 4 mg, Q8H PRN proMETHazine, 12.5 mg, Q6H PRN vancomycin intermittent/pulse dosing PLACEHOLDER ORDER, , UD PRN ROS: Negative General: Denies fever, chills [...] Denies hallucinations and memory loss Vitals: Vitals: 06/03/20 0037 06/03/20 0042 06/03/20 0410 06/03/20 0604 BP: 154/80 123/68 BP Location: Right arm Right arm Patient Position: Lying Lying Pulse: 124 126 116 Resp: 18 20 Temp: 99 ??F (37.2 ??C) 99.6 ??F (37.6 ??C) TempSrc: Oral Oral SpO2: 97% 97% 91% Weight: (!) 254 lb 3.2 oz (115.3 kg) Height: PE: Gen: Awake, alert, no apparent distress HEENT: Normocephalic, atraumatic, EOMI Neck: Supple, symmetrical Chest: Respirations unlabored CVS: RRR ABD: Soft, non-tender : deferred EXT: Warm and well perfused NEURO: No focal deficits PSYCH: Appropriate affect Labs: Recent Labs 05/31/20 0429 06/01/20 0506/02/20 0407 WBC 7.6 6.4 6.3 HGB 7.8* 7.4* 7.1* HCT 23.4* 22.0* 21.3* MCV 91.6 91.6 90.5 PLT 329 337 325 Recent Labs 06/01/20 0506/02/20 0407 06/03/20 0504 NA 138 137 138 K 4.8 4.8 4.7 CL 97* 98 98 CO2 23 23 26 PHOS 7.0* 7.4* 6.3* BUN 70* 71* 56* CREATININE 11.79* 12.81* 11.03* CALCIUM 9.5 9.6 9.7 Recent Labs 05/31/20 0429 06/01/20 0517 06/02/20 0407 BILITOT 0.4 0.4 0.4 AST 11* 13 13 ALT 14 11 10 ALKPHOS 74 73 77 Recent Labs 05/31/20 0429 06/01/20 0517 06/02/20 0407 06/03/20 0504 ALBUMIN 3.2* 3.2* 3.4* 3.4* 3.4* 3.4* 3.5 BILIDIRECT 0.10 0.02 0.11 -- Recent Labs 05/31/2042806/01/20 0517 06/02/20 0407 INR 1.4* 1.2* 1.3* PROTIME 17.0* 15.9* 16.3* Imaging: No results found for this or any previous visit (from the past 72 hours). No results found for this or any previous visit (from the past 72 hours). I personally reviewed the relevant findings from the above imaging results. Pre-Sedation Evaluation Airway: Mallampati:: III TM distance:: <3 FB Neck ROM:: Full ASA Score: ASA: III -patient with moderate systematic disease with functional limitations Sedation specific history concerns: sleep apnea or use of CPAP/bilevel This patient was reevaluated immediately prior to sedation administration. Medical Decision Making Assessment: Leoncio Rollins Jr. is a 45 y.o. male with a fluid collection adjacent along his lumbar spine, concerning for infection. Plan: 1. Image guided fluid aspiration of the paraspinal lumbar fluid collection, tentatively for tomorrow (06-03) given the patient is not consentable at this time as he has already received sedation thismorning. 2. Sedation Plan/Type: Local/Subcutaneous Lidocaine 1% and Moderate Sedation/Intravenous Fentanyl & Versed 3. NPO after midnight. Patient may have sips of water with morning medication. 4. Hold SQ heparin from midnight or Lovenox 24 hrs. Consent: Consent obtained and in IR IR procedure was reviewed with Liberty Winchester MD Please call with any questions. Bob Gonzalez DO Vascular & Interventional Radiology 06/03/2020, 7:14 AM [facility]: [phone] * Roxi Pressley RN - 06/01/2020 9:31 PM EDTAssociated Order(s): IP Consult to UGPIV IP Consult to UGPIV Consult performed by: Roxi Pressley RN Consult ordered by: Aby Cavazos MD Assessment/Recommendations: 18G UGPIV placed in RFA. * Bob Gonzalez DO - 06/01/2020 10:47 AM EDT Interventional Radiology Consult Note Date: 06/01/2020 Patient: Leoncio Rollins Jr. : 1975 Primary Care Provider: Edgar Fournier MD Requesting Provider: MD Katharine Chief Complaint: AVF dysfunction Reason for Consult: Fistulagram IR Procedure Request Received and Reviewed. HPI: Leoncio Rollins Jr. is a 45 y.o. male with history of ESRD on HD at home via a LUE AVF and liver transplant in 2018 admitted for discitis/osteomyelitis. Patient went for unsuccessful dialysis today with reported clots coming from AVF. IR Consulted for fistulagram with possible declot. Last successful dialysis 05/29/20. History: Past Medical History: Diagnosis Date ??? [...] 05/29/2020 Procedure: EGD WITH BIOPSY; Surgeon: Rashid Winchester MD; Location: ENDOSCOPY; Service: Gastroenterology; Laterality: N/A; [...] Status Never Smoker Smokeless Tobacco Never Used Social History Substance and Sexual Activity Drug Use No Social History Substance and Sexual Activity Alcohol Use No Allergies: Allergies Allergen Reactions ??? Codeine Sulfate Hyper ??? Codeine Other (See Comments) Becomes hyper Home Medications: Prior to Admission medications Medication aspirin 81 MG chewable tablet calcitRIOL (ROCALTROL) 0.25 MCG capsule calcium acetate,phosphat bind, (PHOSLO) 667 mg capsule carBAMazepine (TEGRETOL) 200 mg tablet carBAMazepine ER (TEGRETOL XR) 200 MG 12 hr tablet cycloSPORINE modified (NEORAL) 25 MG capsule cycloSPORINE, SANDIMMUNE, 25 MG capsule doxazosin (CARDURA) 8 MG tablet entecavir (BARACLUDE) 0.5 MG tablet famotidine (PEPCID) 20 MG tablet fluticasone propionate (FLONASE) 50 mcg/actuation nasal spray gabapentin (NEURONTIN) 100 MG capsule gabapentin (NEURONTIN) 100 MG capsule hydrALAZINE (APRESOLINE) 50 MG tablet insulin NPH and regular human (HUMULIN 70/30 U-100 KWIKPEN) 100 unit/mL (70-30) InPn insulin NPH isoph U-100 human (HUMULIN N NPH INSULIN KWIKPEN) 100 unit/mL (3 mL) InPn lidocaine-prilocaine (EMLA) cream metoprolol tartrate (LOPRESSOR) 50 MG tablet mycophenolate (CELLCEPT) 250 mg capsule NIFEdipine (PROCARDIA-XL) 90 MG (OSM) 24 hr tablet ondansetron (ZOFRAN) 4 MG tablet ondansetron (ZOFRAN-ODT) 4 MG disintegrating tablet polyethylene glycol (MIRALAX) 17 gram packet vancomycin (VANCOCIN) 750 mg SolR ALPRAZolam (XANAX) 0.25 MG tablet ALPRAZolam (XANAX) 0.5 MG tablet ALPRAZolam (XANAX) 1 MG tablet blood sugar diagnostic Strp blood-glucose meter (Optrace VERIO SYSTEM) Misc cephALEXin (KEFLEX) 500 MG capsule cyclobenzaprine (FLEXERIL) 10 MG tablet doxycycline (MONODOX) 100 MG capsule ergocalciferol (VITAMIN D2) 50,000 unit capsule fluconazole (DIFLUCAN) 100 MG tablet gabapentin (NEURONTIN) 800 MG tablet gabapentin (NEURONTIN) 800 MG tablet hydrALAZINE (APRESOLINE) 100 MG tablet hydrALAZINE (APRESOLINE) 50 MG tablet hydrocortisone 2.5 % cream hydrOXYzine pamoate (VISTARIL) 25 MG capsule JANUVIA 100 mg tablet ketoconazole (NIZORAL) 2 % shampoo lancets (ChainalyticsUCH DELICA LANCETS) 33 gauge Misc linezolid (ZYVOX) 600 mg tablet lisinopriL (PRINIVIL) 40 MG tablet methocarbamoL (ROBAXIN) 500 MG tablet metoprolol succinate (TOPROL-XL) 100 MG 24 hr tablet metoprolol tartrate (LOPRESSOR) 100 MG tablet oxyCODONE (ROXICODONE) 5 MG immediate release tablet oxyCODONE-acetaminophen (PERCOCET) 10-325 mg per tablet pen needle, diabetic 32 gauge x Ndle proMETHazine (PHENERGAN) 25 MG tablet valACYclovir (VALTREX) 1000 MG tablet Current Medications: Scheduled Medications: carBAMazepine, 200 mg, Nightly (2100) ceFEPime (MAXIPIME) IV extended infusion, 1 g, Q24H cycloSPORINE modified, 50 mg, BID [START ON 06/02/2020] entecavir, 0.5 mg, Q7 Days gabapentin, 200 mg, Daily 0900 heparin, 5,000 Units, 3 times per day insulin lispro, 0-5 Units, TID AC lidocaine, 1 patch, Q24H melatonin, 3 mg, Nightly (2099) pantoprazole, 40 mg, DAILY 0600 polyethylene glycol, 17 g, BID quetiapine, 12.5 mg, Nightly (2099) senna-docusate, 2 tablet, Nightly (2099) terazosin, 10 mg, Nightly (2099) vancomycin, 10 mg/kg, Once IV Meds: PRN Medications: acetaminophen, 650 mg, Q8H PRN ALPRAZolam, 0.5 mg, Daily PRN dextrose 50 % in water (D50W), 25 mL, Q15 Min PRN Or dextrose 50 % in water (D50W), 50 mL, Q15 Min PRN glucose, 12 g, Q15 Min PRN ondansetron, 4 mg, Q8H PRN oxyCODONE, 5 mg, Q4H PRN Or oxyCODONE, 10 mg, Q4H PRN proMETHazine, 12.5 mg, Q6H PRN vancomycin intermittent/pulse dosing PLACEHOLDER ORDER, , UD PRN ROS: Negative General: Denies fever, chills or weakness Cardiovascular: Denies chest pain, chest pressure or palpitations Respiratory: Denies shortness of breath, wheezing or cough GI: Denies abdominal pain or n/v/d : Denies pain with urination or blood in urine Skin: Denies rashes or bruising Neurological: Denies headaches, dizziness, gait problems, or seizures Extremities: back pain, leg pain Psychiatric: Denies hallucinations and memory loss Vitals: Vitals: 05/31/20 1937 06/01/20 0002 06/01/20 0419 06/01/20 0812 BP: 156/88 142/81 151/87 167/81 BP Location: Right arm Right arm Right arm Right arm Patient Position: Lying Lying Lying Lying Pulse: 116 111 116 123 Resp: Temp: 98.7 ??F (37.1 ??C) 98.5 ??F (36.9 ??C) 98.7 ??F (37.1 ??C) 98.4 ??F (36.9 ??C) TempSrc: Oral Oral Oral Oral SpO2: 94% 95% 97% 91% Weight: PE: Gen: Awake, alert, no apparent distress HEENT: Normocephalic, atraumatic Neck: Supple, symmetrical Chest: respirations unlabored CVS: RRR ABD: soft : deferred EXT: +thrill LUE, ecchymosis left forearm, no significant asymmetric upper extremity edema NEURO: No focal deficits, cranial nerves II-XII grossly intact PSYCH: Appropriate affect Labs: Recent Labs 05/30/20 2333 05/31/2042806/01/20 05 WBC 9.5 7.6 6.4 HGB 7.7* 7.8* 7.4* HCT 24.1* 23.4* 22.0* MCV 90.8 91.6 91.6 PLT 369 329 337 Recent Labs 05/30/20 1206 05/31/2042806/01/20 05 NA 137 136 138 K 4.8 4.7 4.8 CL 96* 97* 97* CO2 25 26 23 PHOS 6.4* 6.8* 7.0* BUN 56* 64* 70* CREATININE 10.01* 10.62* 11.79* CALCIUM 8.8 9.2 9.5 Recent Labs 05/30/20 1206 05/31/209 06/01/20 0517 BILITOT 0.4 0.4 0.4 AST 12* 11* 13 ALT 14 14 11 ALKPHOS 82 74 73 Recent Labs 05/30/20 1206 05/31/209 06/01/20 0517 ALBUMIN 3.3* 3.3* 3.2* 3.2* 3.4* 3.4* BILIDIRECT 0.04 0.10 0.02 Recent Labs 05/30/20 1206 05/31/209 06/01/20 0517 INR 1.3* 1.4* 1.2* PROTIME 16.8* 17.0* 15.9* Imaging: No results found for this or any previous visit (from the past 72 hours). No results found for this or any previous visit (from the past 72 hours). I personally reviewed the relevant findings from the above imaging results. Airway: Mallampati:: III TM distance:: <3 FB Neck ROM:: Full ASA Score: ASA: III -patient with moderate systematic disease with functional limitations Sedation specific history concerns: sleep apnea or use of CPAP/bilevel and dialysis patient >48 hours since last dialysis This patient was reevaluated immediately prior to sedation administration. Medical Decision Making Assessment: Leoncio Rollins Jr. is a 45 y.o. male with LUE AVF and clotting at dialysis. Plan: 1. Proceed with Fistulogram with possible intervention. 2. Sedation Plan/Type: Moderate Sedation/Intravenous Fentanyl & Versed 3. NPO after midnight. Patient may have sips of water with morning medication. 4. If contrast allergy, please pre-medicate with Prednisone 50mg PO at 13 hour, 7 hours, and 1 hourbefore procedure. Benadryl 50mg PO 1 hour before procedure. 5. Hold SQ heparin from midnight or Lovenox 24 hrs. Consent: Consent obtained and in IR IR procedure was reviewed with Liberty Winchester MD Plan discussed with IR provider Kimber Alcantar MD from Interventional Nephrology team 06/01/2020, 10:47 AM. Please call with any questions. Bob Gonzalez DO Vascular & Interventional Radiology 06/01/2020,10:47 AM [facility]: [phone] * Nadya Devries MD - 05/30/2020 9:55 AM EDTAssociated Order(s): INPATIENT CONSULT TO TRANSPLANT INFECTIOUS DISEASES [facility] DEPARTMENT OF INFECTIOUS DISEASE INITIAL NOTE Referring Physician: Aby Cavazos MD Consult Attending: Nadya Devries MD Patient: Leoncio Rollins Jr. [facility]: [id number] Reason for Consult: Osteomyelitis, h/o OLT History of Present Illness Leoncio Rollins Jr. is a 45 y.o. male on hospital day 2. 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 He take cellcept+ cyclosporine (AMS on tacro) + entecavir. He needs to lose weight to be listed for renal xplant (BMI = 43). He is well known to me from hosp Jul 2019 for GBS bacteremia, presumptive source CMV esophagitis, Rx'd PO valGCV. Shingles in November 2019. Hosp in Mar for HTN elsewhere. Had L arm fistula placed, started using it early Apr and R tunneled HD cath removed. He c/o sudden onset LBP early Apr,followed by fevers, had L5 discitis with epidural abscess (Wilber STEVENS clinda, tcn, and T/S grew from 1of 2 op spec), s/p L4-5 laminectomy, discectomy and posterior decompression on Apr. His blood cultures were negative. He rc'd vanco while inpt until Apr, and discharge orders indicate he rc'd750 mg IV vanco after HD ([facility] in [place] ). His sts he has not been out of bed since coming home, c/o LBP, ambulance takes him to and from HD. She has been giving him do xycycline PO, and also linezolid since earlier this week. May went to [facility] ED for recurrent LBP and weakness, transferred here because CT lumbar spine demonstrated findings concerning for L5-S1 discitis and osteomyelitis with abnormal soft tissue and fluid density of posterior paraspinous tissues L3-S1 with apparent extension into the central canal at L5, suspicious for soft tissue infection. His random vanco level was 16.4, so it appears thathe has been getting Vanco after HD? Vanco + cefepime started here. He rc'd cefepime after HD , but not vanco. Yesterday he went to EGD for coffee ground emesis, found to have circumferential adenomatous mass-like lesion in the distal esophagus at the GE junction, which was biopsied. Lumbar MRI has been ordered. Past Medical History Past Medical History: Diagnosis [...] file Gets together: Not on file Attends jainism service: Not on file Active member of [...] Other (See Comments) Becomes hyper Home Meds: Current Discharge Medication List CONTINUE these medications which have NOT CHANGED Details aspirin 81 MG chewable tablet Chew 1 tablet (81 mg total) by mouth daily with breakfast. Qty: 30 tablet, Refills: 5 carBAMazepine (TEGRETOL) 200 mg tablet Take 200 mg by mouth at bedtime. cycloSPORINE modified (NEORAL) 25 MG capsule Take 2 capsules (50 mg total) by mouth 2 times a day. Qty: 120 capsule, Refills: 5 doxazosin (CARDURA) 8 MG tablet 8 mg daily. entecavir (BARACLUDE) 0.5 MG tablet Take 1 tablet (0.5 mg total) by mouth every 7 days. Qty: 4 tablet, Refills: 5 famotidine (PEPCID) 20 MG tablet Take 20 mg by mouth daily. gabapentin (NEURONTIN) 100 MG capsule Take 4 capsules (400 mg total) by mouth daily. Qty: 180 capsule, Refills: 0 Associated Diagnoses: Neuropathy hydrALAZINE (APRESOLINE) 50 MG tablet Take 100 mg by mouth 3 times a day. insulin NPH isoph U-100 human (HUMULIN N NPH INSULIN KWIKPEN) 100 unit/mL (3 mL) InPn Inject subcutaneously 20 units in the AM and 8 units in the PM. Qty: 15 mL, Refills: 5 Associated Diagnoses: S/P liver transplant ([facility] Dx); Hyperglycemia mycophenolate (CELLCEPT) 250 mg capsule Take 1 capsule (250 mg total) by mouth 2 times a day. Qty: 60 capsule, Refills: 11 NIFEdipine (PROCARDIA-XL) 90 MG (OSM) 24 hr tablet Take 90 mg by mouth 2 times a day. ondansetron (ZOFRAN-ODT) 4 MG disintegrating tablet every 8 hours as needed. polyethylene glycol (MIRALAX) 17 gram packet Take 17 g by mouth 2 times a day as needed. Qty: 100 packet, Refills: 0 ALPRAZolam (XANAX) 1 MG tablet Take by mouth. blood sugar diagnostic Strp Use to test blood sugar up to 4 times a day. Diagnosis for use: E 9.65.For use with One Touch Verio meters. Qty: 150 strip, Refills: 5 blood-glucose meter (ONETOUCH VERIO SYSTEM) [facility] Use as instructed. Qty: 1 each, Refills: 0 ergocalciferol (VITAMIN D2) 50,000 unit capsule Take 50,000 Units by mouth. Twice a week lancets (Optrace DELCareem LANCETS) 33 gauge Misc Use 1 strip as directed 4 times daily before meals and at bedtime. Qty: 150 each, Refills: 5 pen needle, diabetic 32 gauge x /32 Ndle Use as directed to inject insulin 4 times daily. Qty: 150 each, Refills: 5 Inpatient Meds: Scheduled: ??? carBAMazepine 200 mg Oral Nightly (2099) ??? ceFEPime (MAXIPIME) IV extended infusion 1 g Intravenous Q24H ??? cycloSPORINE modified 50 mg Oral BID ??? [START ON 06/02/2020] entecavir 0.5 mg Oral Q7 Days ??? heparin 5,000 Units Subcutaneous 3 times per day ??? insulin lispro 0-12 Units Subcutaneous TID AC ??? melatonin 3 mg Oral Nightly (2099) ??? ondansetron 4 mg Intravenous Once ??? pantoprazole 40 mg Oral DAILY 0600 ??? polyethylene glycol 17 g Oral BID ??? quetiapine 12.5 mg Oral Nightly (2099) ??? senna-docusate 2 tablet Oral Nightly (2099) ??? terazosin 10 mg Oral Nightly (2099) Continuous: ??? sodium chloride 0.9 % 20 mL/hr (05/30/20 0708) PRN:acetaminophen, ALPRAZolam, dextrose 50 % in water (D50W) OR dextrose 50 % in water (D50W), glucose, ondansetron, oxyCODONE OR oxyCODONE, proMETHazine, vancomycin intermittent/pulse dosingPLACEHOLDER ORDER Review of Systems Review of systems not obtained due to patient factors. He is somnolent, able to converse with prolonged sternal rub, sts he is feeling better, denies diarrhea, confused (thinks he is in [place]). He rc'd xanax 1 mg and oxycodone 10 mg early today. Vital Signs Temp: [97.5 ??F (36.4 ??C)-99 ??F (37.2 ??C)] 98.1 ??F (36.7 ??C) Heart Rate: [48-145] 118 Resp: [16-22] 18 BP: (47-222)/(35-198) 140/57 FiO2: [51 %-100 %] 100 % Intake/Output Summary (Last 24 hours) at 05/30/2020 0955 Last data filed at 05/30/2020 0600 Gross per 24 hour Intake 770 ml Output 2348 ml Net -1578 ml Physical Exam BP 140/57 (BP Location: Right arm, Patient Position: Lying) Pulse 118 Temp 98.1 ??F (36.7 ??C) (Axillary) Resp 18 Wt (!) 278 lb (126.1 kg) SpO2 94% BMI 43.54 kg/m?? General appearance: appears older than stated age, cooperative, delirious, fatigued, mild distress,morbidly obese and syndromic appearance - oriented to May. When asked about where hedialyzes, he told me that he switched back to dialyzing at home 2 days ago. Throat: very dry, no lesions noted Neck: no adenopathy, thyroid not enlarged, symmetric, no tenderness/mass/nodules and no tunneled caths Lungs: clear to auscultation bilaterally and no respiratory distress Heart: regular rate and rhythm, S1, S2 normal, no murmur, click, rub or gallop Extremities: no edema, redness or tenderness in the calves or thighs and L forearm has thrill, muchbruising Skin: Skin color, texture, turgor normal. No rashes or lesions or unable to pull self over for backexam Laboratory Data Lab name 03/12/20 1158 05/28/20 1404 05/29/20 0007 05/30/20 0029 WBC 5.9 6.9 8.3 11.4* HEMOGLOBIN 11.6* 7.9* 7.3* 6.2* HEMATOCRIT 33.6* 24.2* 23.4* 19.9* MEAN CORPUSCULAR VOLUME 96.3 92.2 93.2 92.8 PLATELETS 242 340 399 349 Lab name 07/25/19 0640 07/30/19 0418 01/27/20 1357 03/12/20 1158 05/28/20 1404 05/30/20 0029 SODIUM 141 < > -- < > 138 138 137 137 POTASSIUM 4.5 < > -- < > 3.7 4.8 5.5* 4.5 CHLORIDE 103 < > -- < > 100 101 96* 94* CO2 26 < > -- < > 26 24 23 24 BUN 27* < > -- < > 30* 56* 88* 51* CREATININE 4.93* < > -- < > 6.23* 8.79* 13.63* 8.15* GLUCOSE 128* < > -- < > 92 138* 115* 147* CALCIUM 7.6* < > -- < > 8.0* 8.8 9.5 8.8 MAGNESIUM 2.0 -- 1.8 -- -- -- 1.9 1.8 PHOSPHORUS 3.7 < > -- < > 4.8* 6.8* 8.3* 4.8* < > = values in this interval not displayed. Lab name 07/19/19 2357 05/28/20 1404 05/29/20 0936 INR 1.1 1.3* 1.3* PROTHROMBIN TIME 15.0 16.0* 16.1* Lab name 01/27/20 1357 03/12/20 1158 05/28/20 1404 05/30/20 0029 ALT 14 14 18 19 AST 14 13 12* 15 ALK PHOS 113 112 114 88 BILIRUBIN TOTAL 0.4 0.4 0.4 0.4 BILIRUBIN DIRECT 0.08 0.09 0.12 0.08 ALBUMIN 4.3 4.1 4.5 4.5 3.6 3.6 3.3* 3.3* Lab name 06/28/19 1047 07/20/19 0606 COLOR, URINE Yellow Yellow CLARITY Clear Cloudy* PROTEIN UA >=500* >=500* PH UA 5.0 6.0 SPECIFIC GRAVITY, URINE 1.015 1.017 GLUCOSE UA 150* 150* KETONES UA Negative Negative BLOOD UA Small* Small* LEUKOCYTES UA Negative Negative NITRITE UA Negative Negative BILIRUBIN UA Negative Negative UROBILINOGEN UA <2.0 <2.0 RBC UA <1 6* WBC UA 2 1 BACTERIA Rare* Few* Specialty labs: Lab name 09/19/19 1418 05/28/20 1541 05/30/20 0029 ALT -- < > -- 19 AST -- < > -- 15 HEP A IGM -- -- Nonreactive -- HEP B C TOTAL AB -- -- Nonreactive -- HEPATITIS B SURFACE ANTIBODY -- -- Reactive* -- HEP B VIRAL DNA IU/ML Not Detected -- -- -- LOG 10 HBV IU/ML See Note -- -- -- HCV AB -- -- Nonreactive -- < > = values in this interval not displayed. Lab name 01/27/20 1357 CHOLESTEROL TOTAL 236* LDL CHOLESTEROL 143 HDL 32* TRIGLYCERIDES 303* Lab name 07/21/19 1419 07/22/19 0616 05/28/20 1404 05/30/20 0029 ALBUMIN -- 3.0* 3.0* < > 3.6 3.6 3.3* 3.3* CRP -- -- -- 190.6* -- VITAMIN B 12 -- 499 -- -- -- FOLATE 9.90 -- -- -- -- < > = values in this interval not displayed. Lab name 07/21/19 1047 05/28/20 1541 VANCOMYCIN RANDOM 20.2 16.3 Lab name 07/01/19 0339 07/20/19 0628 07/22/19 0616 07/23/19 0414 TACROLIMUS BLOOD <2.0* 2.2* <2.0* 3.2* Microbiology results: Lab Results Component Value Date ISO1 No Growth To Date 05/28/2020 No results found for: AFBSMEAR, PPD Diagnostic Studies Results for orders placed during the hospital encounter of 05/28/20 X-ray Chest PA or AP Narrative EXAM: XR CHEST PA OR AP INDICATION: Other - Must Specify in Comments, possible aspiration, TECHNIQUE: 1 view of the chest. DATE: 05/29/2020 4:14 PM EDT COMPARISON: May 28, 2020 FINDINGS: Medical Devices: None. Heart and Mediastinum: Cardiomediastinal silhouette is within normal limits. Lungs and Pleura: Lungs are clear. No pleural abnormalities evident. Bones and soft tissues: No acute abnormalities. Assessment & Plan Leoncio Rollins JrUbaldo is a 45 y.o. male Medical problems being addressed in this encounter include thefollowing: Active Hospital Problems Diagnosis Date Noted ??? Osteomyelitis (CMS Dx) [M86.9] 05/28/2020 ??? Anemia [D64.9] 03/12/2020 ??? ESRD (end stage renal disease) (CMS Dx) [N18.6] 09/13/2018 ??? S/P liver transplant (CMS Dx) [Z94.4] 06/04/2018 ??? Liver transplant recipient (CMS Dx) [Z94.4] 10/31/2017 ??? Immunosuppression (CMS Dx) [D84.9] 10/31/2017 ??? Liver transplanted (CMS Dx) [Z94.4] ??? GERD (gastroesophageal reflux disease) [K21.9] Resolved Hospital Problems No resolved problems to display. POD # 31 s/p L5 laminectomy with I&D of epidural abscess, persistent LBP, agree to continue cefepime + vanco pending MRI and results of blood cultures, which are NGSF. Will follow with you, please call with questions. Signed: Nadya Devries MD 05/30/2020, 9:55 AM [phone] dig [phone] cell * Roxi Pressley RN - 05/29/2020 5:42 PM EDTAssociated Order(s): IP Consult to UGPIV IP Consult to UGPIV Consult performed by: Roxi Pressley RN Consult ordered by: Abbie Cifuentes MD Assessment/Recommendations: PIV placed by TRUCK STRIKER in endoscopy. Pt has adequate access at this time. * Roxi Pressley RN - 05/29/2020 1:59 PM EDT Consults UGPIV RN RN spoke with primary RN. Pt currently in Endoscopy. Notified RN to please contact UGPIV RN when pt returns to unit if still requires access. * Maulik Moran RN - 05/29/2020 12:00 PM EDT HEALTH Care Management/Social Work Assessment Patient Information Hospital Day: 1 Inpatient/Observation: Inpatient Admit Date: 05/28/2020 Admission Diagnosis: POST-OP INFECTION Attending provider: Abbie Cifuentes, * PCP: Edgar Fournier MD Home Pharmacy: [facility] [address] [facility] [address] [facility] - [place], [place] - [address] [facility] [id number] [facility] [address] [facility] [address] Pertinent Medications New Diabetic: No Issues related to obtaining medications: no Payor Information Medical Insurance Coverage: Payor: MEDICARE / Plan: MEDICARE A AND B / Product Type: Medicare / Secondary Payor: [place] Functional Assessment Functional Assessment Assessment Information Obtained From:: Patient May We Obtain Collateral Information From Family, Friends and Neighbors?: Yes Current Mental Status: Awake, Oriented to Person, Oriented to Place, Oriented to Time, Oriented to Situation Previous Self Harm/Suicidal Ideation: No Suicide Attempts: No Activities of Daily Living: Partial Assistance Needed Work History: Disabled Marital Status: Demographics Correct:: Yes Discharge Destination: Home Current Living Arrangements Current Living Arrangements Current Living Arrangements: Home Type of Housing: House Who do you live with?: With Family What family member?: spouse and sons One Story or Two (check all that apply): Multi-Level History of Falls?: No Community Services Community Services Community Services at Home: Home Health Care, Dialysis Home Health Care Name/Phone #: [facility]/ [phone] Home Health Services Types Prior to 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, [facility] Dialysis Needs: Hemodialysis HD days of week: M/T//F/Sat at home [facility] dialysis in [place] is the clinic patient goes to if needed [phone] HD time of day: afternoon HD Transportation provided by: [employer] Was any abuse reported by patient?: No Support Systems Emergency contact: Extended Emergency Contact Information Primary Emergency Contact: Kym Rollins Address: [address] [place] [address] [place] [address] [facility] Mobile Relation: Spouse Secondary Emergency Contact: Kimberly Rollins [facility] Relation: Mother Support Systems Legal Status: N/A Primary Caregiver: Family Times of available support: Total 06/03 hands on (add comment) Marital Status: Demographics Correct:: Yes Discharge Destination: [...] Pre-existing DNR/DNI Order: No Patient Requests Assistance: Yes, advice to complete post discharge Discharge Plan Met with patient to initiate discussion regarding discharge planning. Introduced self and role of case management/social work and provided contact information. Psycho social assessment completed. Spouse is legal NOK. Patient has not filled out the official [facility] paperwork but understands his spouse would be the legal NOK. Encouraged him to fill out paperwork so everyone is aware of his wishes. Patient lives with spouse and his son. He states he is independent with ADLs and IADLs. He does acknowledge his spouse is the primary home care nurse and she is always with him and helps him with personalcare. He reports his spouse is very knowledgeable about his care and how to help him best. He has home care set up with [facility], . Confirmed with them he has nursing and PT/OT. They will need [facility] orders and dc summary faxed to them at [phone] on dc. Will send them some initial information this date. Patient does his hemodialysis at home 5 days/wk. He is associated with [facility], p) [phone]; f) [phone]. Talked with nurse at clinic who confirmed they areaware of patient. She states he comes there for bloodwork if needed. He also was scheduled to come there for IV antibiotics but they were able to arrange it so he got them at home. She states they have a chair and time available for him if needed. They will need to be kept up to date on dc plan andif he will need to come to the clinic for dialysis or antibiotics. Will send information as needed. Anticipated Discharge Plan: home with resumption of home care and home dialysis Anticipated Discharge Date: 06/03/20 Anticipated Transportation: family Patient/Family aware and taking part in the discharge plan. Patient/family educated that once post-acute care needs have been identified, a provider list applicable to the identified post-acute care needs as well as the insurance provider will be provided, and patient/family have the freedom to choose their provider(s); financial interest(s) are disclosed as appropriate. MAULIK MORAN RN Phone Number: [phone] * Shayy Ballesteros MD - 05/29/2020 9:29 AM EDTAssociated Order(s): IP CONSULT TO LIVER HEPATOLOGY INITIAL CONSULT NOTE REASON FOR CONSULT: Immunosuppression management for hx of OLT HPI: Leoncio Rollins Jr. is a 45 y.o. male with a past medical history of SAL cirrhosis s/p transplant (09/2017 at ), ESRD on HD at home ([facility]), pulmonary HTN, JC, DM2, HTN, obesity, and recent spinal surgery (04/2020) who presents with complaints of weakness and low backache. Patient admitted at [facility] from 04/28-05/13/2020 for back pain, fever, AMS. Diagnosed with sepsis secondary to an epidural abscess and discitis growing Staph epi. Patient underwent. spinal surgery (lumbar laminectomy, discectomy and posterior decompression at L4-L5 level). Following this spinal surgery, patient was discharged with home PT/OT. Now presenting to hospital due to progressively worsening lower back pain. Patient has occasional chills and nausea; does not report fever, shortness of breath, cough, abdominal pain, vomiting, changes in bowel movements, urinary nor fecal incontinence. Patient is not having neurological type symptoms including loss of sensation or focal weakness. Patient describes muscular weakness / movement limitations secondary to pain. Patient seen at OSH ED on ([facility]). CT lumbar spine demonstrated findings concerning for L5-S1 discitis and osteomyelitis with abnormal soft tissue and fluid density of posterior paraspinous tissues L3-S1 with apparent extension into the central canal at L5, suspicious for soft tissue infection. Patient then transferred to [facility] for further evaluation.Overnight from 05/28-05/29, patient had coffee ground emesis with slight drop in Hgb 7.9 -> 7.3. In regard to prior liver transplant, patient last seen in outpatient clinic by Dr. Ordoñez on 12/19/2019. Per Dr. Ordoñez's note: Patient received a [facility] high risk donor, who was HBV ALEXANDRA +, HCV Ab+, ALEXANDRA negative. Thus, requires lifelong renally-dosed entecavir (currently on 0.5 mg weekly). Post-operative course was complicated by altered mental status and severe tremors thought to be related to tacrolimus toxicity, and hypoxia. Received one dose of thymoglobulin. Current immunosuppression regimenincludes cyclosporine 50 mg BID and CellCept 250 mg BID. Patient cannot be considered for kidney transplant due to BMI > 40. Evaluated by Dr Trivedi for possible bariatric surgery. Plan for laparoscopic sleeve gastrectomy; however, scheduled surgery was cancelled 03/2020 due to poorly controlled BP and tachycardia. Plan for later date. Interval Update: Pt developed 2 episodes of coffee ground emesis overnight. Was tachycardic during both episodes. Hgb dropped from 7.9 to 7.3. ? REVIEW OF SYSTEMS: As mentioned above in HPI 10 point ROS negative unless otherwise stated above. PAST MEDICAL HISTORY: Past Medical History: Diagnosis [...] TIPS PROCEDURE 10/2016 ??? TIPS Revision 04/2017 CURRENT MEDICATIONS: Scheduled Meds: ??? carBAMazepine 200 mg Oral Nightly (2099) ??? ceFEPime (MAXIPIME) IV extended infusion 1 g Intravenous Q24H ??? cycloSPORINE modified 50 mg Oral BID ??? gabapentin 300 mg Oral Daily 0900 ??? heparin 5,000 Units Subcutaneous 3 times per day ??? hydrALAZINE 100 mg Oral TID ??? insulin lispro 0-12 Units Subcutaneous TID AC ??? NIFEdipine 90 mg Oral BID ??? ondansetron 4 mg Intravenous Once ??? pantoprazole (PROTONIX) IV 40 mg Intravenous BID6 ??? polyethylene glycol 17 g Oral BID ??? senna-docusate 2 tablet Oral Nightly (2099) ??? terazosin 10 mg Oral Nightly (2099) Continuous Infusions: PRN Meds:.acetaminophen, ALPRAZolam, dextrose 50 % in water (D50W) OR dextrose 50 % in water (D50W), glucose, ondansetron, oxyCODONE OR oxyCODONE, proMETHazine, vancomycin intermittent/pulse dosing PLACEHOLDER ORDER HOME MEDICATIONS: No current facility-administered medications on file prior to encounter. Current Outpatient Medications on File Prior to Encounter Medication Sig Dispense Refill ??? aspirin 81 MG chewable tablet Chew 1 tablet (81 mg total) by mouth daily with breakfast. 30 tablet 5 ??? carBAMazepine (TEGRETOL) 200 mg tablet Take 200 mg by mouth at bedtime. ??? cycloSPORINE modified (NEORAL) 25 MG capsule Take 2 capsules (50 mg total) by mouth 2 times a day. 120 capsule 5 ??? doxazosin (CARDURA) 8 MG tablet 8 mg daily. ??? entecavir (BARACLUDE) 0.5 MG tablet Take 1 tablet (0.5 mg total) by mouth every 7 days. 4 tablet 5 ??? famotidine (PEPCID) 20 MG tablet Take 20 mg by mouth daily. ??? gabapentin (NEURONTIN) 100 MG capsule Take 4 capsules (400 mg total) by mouth daily. 180 capsule 0 ??? hydrALAZINE (APRESOLINE) 50 MG tablet Take 100 mg by mouth 3 times a day. ??? insulin NPH isoph U-100 human (HUMULIN N NPH INSULIN KWIKPEN) 100 unit/mL (3 mL) InPn Inject subcutaneously 20 units in the AM and 8 units in the PM. (Patient taking differently: Inject subcutaneously 48 units in the AM and 24 units in the PM as needed ) 15 mL 5 ??? mycophenolate (CELLCEPT) 250 mg capsule Take 1 capsule (250 mg total) by mouth 2 times a day. 60 capsule 11 ??? NIFEdipine (PROCARDIA-XL) 90 MG (OSM) 24 hr tablet Take 90 mg by mouth 2 times a day. ??? ondansetron (ZOFRAN-ODT) 4 MG disintegrating tablet every 8 hours as needed. ??? polyethylene glycol (MIRALAX) 17 gram packet Take 17 g by mouth 2 times a day as needed. 100 packet 0 ??? ALPRAZolam (XANAX) 1 MG tablet Take by mouth. ??? blood sugar diagnostic [facility] Use to test blood sugar up to 4 times a day. Diagnosis for use: E 9.65. For use with One Touch Verio meters. 150 strip 5 ??? blood-glucose meter (ONETOUCH VERIO SYSTEM) [facility] Use as instructed. 1 each 0 ??? ergocalciferol (VITAMIN D2) 50,000 unit capsule Take 50,000 Units by mouth. Twice a week ??? lancets (SoevolvedTOUCH DELICA LANCETS) 33 gauge [facility] Use 1 strip as directed 4 times daily before meals and at bedtime. 150 each 5 ??? pen needle, diabetic 32 gauge x 5/32 Ndle Use as directed to inject insulin 4 times daily. 150each 5 ALLERGIES: Allergies Allergen Reactions ??? Codeine Sulfate Hyper ??? Codeine Other (See Comments) Becomes hyper SOCIAL HISTORY: Social History Substance and Sexual Activity Alcohol Use No Social History Substance and Sexual Activity Drug Use No Social History Tobacco Use Smoking Status Never Smoker Smokeless Tobacco Never Used FAMILY HISTORY: Family History Problem Relation Age of Onset ??? Diabetes Sister ??? Anesthesia problems Neg Hx VITALS: Vitals: 05/29/20 0803 BP: 101/59 Pulse: 105 Resp: 18 Temp: 98.1 ??F (36.7 ??C) SpO2: 90% PHYSICAL EXAM: GEN: No acute distress. Alert and oriented x3. Appears stated age. HEENT: Atraumatic. Normocephalic. Moist mucous membranes. Dried Coffee ground emesis noted around the lips and mouth. No scleral icterus. EOM intact. CARD: RRR, no murmurs RESP: CTAB, no wheezes or crackles. Normal work of breathing ABD: Obese, distended, soft, LLQ tenderness, BS+. Well healed surgical scar from liver transplant. EXT: No peripheral edema. Peripheral pulses 2+. No obvious deformity. DERM: No rash or bruising. Skin intact. Normal color, texture, and turgor. Warm and dry. NEURO: CN2-12 grossly intact. No focal deficits PSYCH: Normal mood and affect. Normal speech and behavior. LABS: MELD-Na score: 23 at 05/29/2020 9:36 AM Calculated from: Serum Creatinine: 13.63 mg/dL (Rounded to 4 mg/dL) at 05/28/2020 2:04 PM Serum Sodium: 137 mmol/L at 05/28/2020 2:04 PM Total Bilirubin: 0.4 mg/dL (Rounded to 1 mg/dL) at 05/28/2020 2:04 PM INR(ratio): 1.3 at 05/29/2020 9:36 AM Age: 45 years Lab Results Component Value Date WBC 8.3 05/29/2020 RBC 2.51 (L) 05/29/2020 HGB 7.3 (L) 05/29/2020 HCT 23.4 (L) 05/29/2020 MCV 93.2 05/29/2020 MCH 29.0 05/29/2020 MCHC 31.1 (L) 05/29/2020 RDW 15.2 (H) 05/29/2020 PLT 399 05/29/2020 Lab Results Component Value Date GLUCOSE 115 (H) 05/28/2020 BUN 88 (H) 05/28/2020 CO2 23 05/28/2020 CREATININE 13.63 (H) 05/28/2020 K 5.5 (H) 05/28/2020 NA 137 05/28/2020 CL 96 (L) 05/28/2020 CALCIUM 9.5 05/28/2020 Lab Results Component Value Date MG 1.9 05/28/2020 Lab Results Component Value Date PHOS 8.3 (H) 05/28/2020 Lab Results Component Value Date INR 1.3 (H) 05/29/2020 PROTIME 16.1 (H) 05/29/2020 Lab Results Component Value Date ALT 18 05/28/2020 AST 12 (L) 05/28/2020 ALKPHOS 114 05/28/2020 BILITOT 0.4 05/28/2020 BILIDIRECT 0.12 05/28/2020 Lab Results Component Value Date HGB 7.3 (L) 05/29/2020 HGB 7.9 (L) 05/28/2020 HGB 11.6 (L) 03/12/2020 HGB 8.9 (L) 01/27/2020 HGB 11.3 (A) 11/15/2019 HGB 11.9 (L) 09/19/2019 HGB 7.9 (L) 07/31/2019 HGB 8.2 (L) 07/30/2019 HGB 9.3 (L) 07/30/2019 HGB 8.9 (L) 07/25/2019 IMAGING: No recent imaging at [facility] CT Lumbar WO at OSH: - postoperative changes realted to posterior decompressive resection at L5 - Findings suspicious for L5-S1 discitis and osteomyelitis. - Abnormal soft tissue and fluid density in posterior paraspinous tissues at L3- S1 with apparent extension into the central canal at L5 level, suspicious for soft tissue infection PROCEDURES: EGD on 05/04/2020 Near normal per chart review Unfortunately, records are unavailable EGD 07/24/2019 Impression: ? - Mucosal nodule found in the esophagus. Biopsied. - Small hiatal hernia. ?- Erythematous mucosa in the pylorus. - Normal examined duodenum. - The examination was otherwise normal. 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 Follows with Dr. Ordoñez, last seen 12/2019. Patientreceived a [facility] high risk donor, who was HBV ALEXANDRA +, HCV Ab+, ALEXANDRA negative. Thus, requires lifelong renally-dosed entecavir (currently on 0.5 mg weekly). Post-operative course was complicated by altered mental status and severe tremors thought to be related to tacrolimus toxicity, and hypoxia. Received one dose of thymoglobulin. Current immunosuppression regimen includes cyclosporine 50 mg BID and CellCept 250 mg BID. Undergoing evaluation for possible discitis/osteomyelitis. - Continue home entecavir 0.5 mg weekly - Hold home CellCept due to concern for infection - Continue home cyclosporine - Recommend checking serum cyclosporine level tomorrow AM - Daily MELD Labs - Plan for EGD today given coffee ground emesis. Patient seen and discussed with attending physician, Dr. Miles. All results are preliminary until note attested by the attending physician. SHAYY BALLESTEROS MD Cosigned by Arlene Mcclellan MD at 06/01/2020 12:31 AM EDT Associated attestation - Arlene Mcclellan MD - 06/01/2020 12:31 AM EDT ATTENDING ADDENDUM I saw and personally examined the patient. I discussed the findings and therapeutic plan with the patient. I repeated, reviewed and and agree with the history, physical examination, and medical decisions as outlined in Dr. Ballesteros's note. 45 year old man with complex PMH of SAL cirrhosis s/p transplant (09/2017), ESRD on HD at home ([facility]), Pulmonary HTN, JC, Diabetes mellitus 2, Obesity, and Spinal surgery (04/2020) admitted forweakness and low backache; imaging concerning for discitis, osteomyelitis. Hepatology consulted for co-management of immunosuppression and coffee ground emesis. Status post liver transplant: stable allograft function. Hold cellcept. Continue cyclosporine and entecavir. Coffee ground emesis: secondary to distal esophagus mass noted on EGD. PPI twice daily. Await path results. Arlene Mcclellan MD, MPH Transplant hepatology Pager: [phone] * Melvina Castellon MD - 05/29/2020 7:55 AM EDTAssociated Order(s): IP CONSULT TO RENAL Nephrology Consult H&P 05/29/2020 7:49 AM Patient: Leoncio Rollins Jr. [id number] Date of Admit: 05/28/2020 LOS: 1 days Referring physician: Abbie Cifuentes, * Sulfate Drier Machine Operator: Dr Carranza Date of Request: 05/29/2020 Date of Response: 05/29/2020 Reason for Consult Reason for consult: ESRD Chief complaint: back pain History of Present Illness Patient ESRD on HD at home ([facility]), SAL cirrhosis s/p liver transplant 2017, pulmonary HTN, JC, DM2, HTN, obesity admitted with complaint of subacute low back pain and weakness following spinal surgery. ?? Patient underwent spinal surgery (lumbar laminectomy, discectomy and posterior decompression at L4-L5) at [facility] 04/29. Patient is having worsening back paina [facility] lumbar spine concerning for L5-S1 discitis and osteomyelitis with abnormal soft tissue and fluid density of posterior paraspinous tissues L3- S1 with apparent extension into the central canal at L5, suspicious for soft tissue infection. Patient also reported coffee colored vomiting and melena. No SOB while laying flat in bed. No chest pain. No fever or cough. Past medical, family, and social histories were reviewed as previously documented. Updates were made as necessary. Review of Systems (Focused) GEN: no recent fever, chills or night sweats HEENT: no changes in vision, sore throat, rhinorrhea CV: no cp, sob or orthopnea Pulm: no cough or hemoptysis GI: No abdominal pain. See above. : Patient on HD MSK: no muscle or joint pain Skin: no rashes, wounds or itching Psych: no HI/SI NURSE TECHNICIAN: No headache or focal weakness. Patient has back pain and B/L leg pain and numbness Reviewed all 12 systems, negative except as above. Past Medical History Past Medical History: [...] 5 Past Week at Unknown time ??? carBAMazepine (TEGRETOL) 200 mg tablet Take 200 mg by mouth at bedtime. Past Week at Unknown time ??? cycloSPORINE modified (NEORAL) 25 MG capsule Take 2 capsules (50 mg total) by mouth 2 times a day. 120 capsule 5 Past Week at Unknown time ??? doxazosin (CARDURA) 8 MG tablet 8 mg daily. Past Week at Unknown time ??? entecavir (BARACLUDE) 0.5 MG tablet Take 1 tablet (0.5 mg total) by mouth every 7 days. 4 tablet 5 Past Week at Unknown time ??? famotidine (PEPCID) 20 MG tablet Take 20 mg by mouth daily. Past Week at Unknown time ??? gabapentin (NEURONTIN) 100 MG capsule Take 4 capsules (400 mg total) by mouth daily. 180 capsule 0 Past Week at Unknown time ??? hydrALAZINE (APRESOLINE) 50 MG tablet Take 100 mg by mouth 3 times a day. Past Week at Unknown time ??? insulin NPH isoph U-100 human (HUMULIN N NPH INSULIN KWIKPEN) 100 unit/mL (3 mL) InPn Inject subcutaneously 20 units in the AM and 8 units in the PM. (Patient taking differently: Inject subcutaneously 48 units in the AM and 24 units in the PM as needed ) 15 mL 5 Past Week at Unknown time ??? mycophenolate (CELLCEPT) 250 mg capsule Take 1 capsule (250 mg total) by mouth 2 times a day. 60 capsule 11 Past Week at Unknown time ??? NIFEdipine (PROCARDIA-XL) 90 MG (OSM) 24 hr tablet Take 90 mg by mouth 2 times a day. Past Week at Unknown time ??? ondansetron (ZOFRAN-ODT) 4 MG disintegrating tablet every 8 hours as needed. Past Week at Unknown time ??? polyethylene glycol (MIRALAX) 17 gram packet Take 17 g by mouth 2 times a day as needed. 100 packet 0 Past Week at Unknown time ??? ALPRAZolam (XANAX) 1 MG tablet Take by mouth. ??? blood sugar diagnostic [facility] Use to test blood sugar up to 4 times a day. Diagnosis for use: E 9.65. For use with One Touch Verio meters. 150 strip 5 Taking ??? blood-glucose meter (Optrace VERIO SYSTEM) [facility] Use as instructed. 1 each 0 Taking ??? ergocalciferol (VITAMIN D2) 50,000 unit capsule Take 50,000 Units by mouth. Twice a week Unknown at Unknown time ??? lancets (ChainalyticsUCH DELICA LANCETS) 33 gauge [facility] Use 1 strip as directed 4 times daily before meals and at bedtime. 150 each 5 Taking ??? pen needle, diabetic 32 gauge x / Ndle Use as directed to inject insulin 4 times daily. 150each 5 Taking Scheduled Meds: ??? carBAMazepine 200 mg Oral Nightly (2099) ??? ceFEPime (MAXIPIME) IV extended infusion 1 g Intravenous Q24H ??? cycloSPORINE modified 50 mg Oral BID ??? gabapentin 300 mg Oral Daily 0900 ??? heparin 5,000 Units Subcutaneous 3 times per day ??? hydrALAZINE 100 mg Oral TID ??? insulin lispro 0-12 Units Subcutaneous TID AC ??? NIFEdipine 90 mg Oral BID ??? pantoprazole (PROTONIX) IV 40 mg Intravenous BID6 ??? polyethylene glycol 17 g Oral BID ??? senna-docusate 2 tablet Oral Nightly (2099) ??? terazosin 10 mg Oral Nightly (2099) Continuous Infusions: PRN medications: acetaminophen, ALPRAZolam, dextrose 50 % in water (D50W) OR dextrose 50 % in water (D50W), glucose, oxyCODONE OR oxyCODONE, vancomycin intermittent/pulse dosing PLACEHOLDERORDER Allergies: Allergies Allergen Reactions ??? Codeine Sulfate Hyper ??? Codeine Other (See Comments) Becomes hyper Vital Signs Temp: [98 ??F (36.7 ??C)-98.8 ??F (37.1 ??C)] 98 ??F (36.7 ??C) Heart Rate: [90-121] 102 Resp: [16-18] 16 BP: (82-138)/(49-97) 111/62 Patient Vitals for the past 4 hrs: BP Temp Temp src Pulse Resp SpO2 05/29/20 0449 111/62 98 ??F (36.7 ??C) Oral 102 16 95 % Wt Readings from Last 3 Encounters: 05/28/20 (!) 278 lb (126.1 kg) 03/16/20 (!) 278 lb (126.1 kg) 03/12/20 (!) 278 lb (126.1 kg) Admit Wt: Weight: (!) 278 lb (126.1 kg) Todays Wt: Weight: (!) 278 lb (126.1 kg) Estimated body mass index is 43.54 kg/m?? as calculated from the following: Height as of 03/12/20: 5' 7 (1.702 m). Weight as of this encounter: 278 lb (126.1 kg). Date 05/28/20 07 - 05/29/20 0659 05/29/20 07 - 05/30/20 0659 Shift 9093-7487 2432-4377 1752-3948 24 Hour Total 2511-6738 6472-4412 4941-7331 24 Hour Total INTAKE Shift Total(mL/kg) OUTPUT Emesis/NG output Emesis Occurrence 1 x 1 x Shift Total(mL/kg) Weight (kg) 126.1 126.1 126.1 126.1 126.1 126.1 126.1 No intake or output data in the 24 hours ending 05/29/20 0749 No intake/output data recorded. RESPIRATORY Ventilator Setting: No data found. Fi02 Requirement: No data found. Last ABG: Lab Results Component Value Date PCO2 34 (L) 10/09/2017 [id number] 97.6 10/09/2017 Physical Exam General appearance: In NAD Head: Normocephalic, without obvious abnormality, atraumatic Mouth: black colored vomitus material on lips. Neck: Supple. Lungs: clear to auscultation bilaterally and no respiratory distress Heart: regular rate and rhythm, no murmurs Abdomen: soft, non-tender non-distended Extremities: No leg edema, warm to touch Skin: No rashes/lesions noted, no skin tears Psych: good eye contact, normal affect Neuro: CN 2-12 grossly intact, no focal deficits. Access: AVF good trill. Laboratory Data Recent Labs 05/28/20 1404 05/29/20 0007 WBC 6.9 8.3 HGB 7.9* 7.3* HCT 24.2* 23.4* MCV 92.2 93.2 PLT 340 399 Recent Labs 05/28/20 1404 NA 137 K 5.5* CL 96* CO2 23 BUN 88* CREATININE 13.63* GLUCOSE 115* CALCIUM 9.5 MG 1.9 PHOS 8.3* ANIONGAP 18* Recent Labs 05/28/20 1404 INR 1.3* PROTIME 16.0* FSBS Range: Recent Labs 05/28/20 1801 POCGMD 156* Recent Labs 05/28/20 1404 ALT 18 AST 12* ALKPHOS 114 BILITOT 0.4 Cardiac Labs: No results for input(s): CKTOTAL, CKMB, CKMBINDEX, TROPONINI, BNP, NTPROBNP in the last 72 hours. No results for input(s): CHOLTOT, TRIG, HDL, CHOLHDL, LDL in the last 72 hours. Invalid input(s): VLDCHOL Lab Results Component Value Date HGBA1C 6.9 (H) 01/27/2020 HGBA1C 6.8 (A) 07/18/2019 HGBA1C 7.2 (A) 05/15/2019 Nephro Labs: No results for input(s): COLORU, CLARITYU, PH, PROTEINUA, PHUR, LABSPEC, GLUCOSEU, BLOODU, LEUKOCYTESUR, NITRITE, BILIRUBINUR, UROBILINOGEN, RBCUA, WBCUA, BACTERIA, AMORPHOUS, CRYSTAL, CASTS in the last 72 hours. Invalid input(s): KEYTONESU No results for input(s): NAUR, KUR, CLUR in the last 72 hours. Invalid input(s): CO2UR, CRUR No results found for: MICROALBUR, [id number] Lab Results Component Value Date PTH 164.0 (H) 01/14/2019 CALCIUM 9.5 05/28/2020 PHOS 8.3 (H) 05/28/2020 Lab Results Component Value Date [id number] 15.8 (L) 01/14/2019 Anemia Labs: Lab Results Component Value Date IRON 24 (L) 07/21/2019 TIBC 202 (L) 07/21/2019 FERRITIN 433.9 (H) 07/21/2019 Lab Results Component Value Date [id number] 499 07/22/2019 Sepsis Marker Labs: Recent Labs 05/28/20 1404 LACTATE 0.8 Lab Results Component Value Date FIBRINOGEN 454 (H) 07/20/2019 No results for input(s): TEGANGLE, TEGKTIME, [id number], TEGMAXAMPL, TEGRTIME, CBMZ in the last 72 hours. Recent Labs 05/28/20 1404 ESR 62* CRP 190.6* Lab Results Component Value Date ESR 62 (H) 05/28/2020 CRP 190.6 (H) 05/28/2020 Infectious Labs Urine cx: Lab Results Component [...] cx: Lab Results Component Value Date LABGRAM 10/25/2017 Minimal Oral Contamination <25 Polymorphonuclear Leukocytes; <10 Squamous Epithelial Cells Per Low Power Field LABGRAM Moderate Gram Positive Cocci in Chains and Pairs; 10/25/2017 ISO2 Scant Growth (A) 10/25/2017 ISO2 Pseudomonas fluorescens (A) 10/25/2017 ISO2 Identified by MALDI-TOF MS (A) 10/25/2017 ISO2 Testing Performed at Laboratory (A) 10/25/2017 No results found for: LABFUNG No results found for: PROTEINCSF, GLUCCSF, CFLCCOM, CULTCSF No results found for: HIV1X2 No results found for: CL7HIPPL No results found for: VDRLCSF Lab Results Component Value Date HEPAIGM Nonreactive 05/28/2020 HEPBCAB Nonreactive 05/28/2020 No results found for: [id number] No results found for: [id number] In addition to the above an extensive amount of complex data in the patients lab and chart were reviewed. Morbidity / complication risk is felt to be: Moderate Diagnostic Studies X-ray Comparison Images Final Result X-ray Comparison Images Final Result X-ray Comparison Images Final Result MRI Lumbar spine WO contrast (Results Pending) Assessment & Plan Renal function: ESRD On home HD 5 days a week. Last night labs showed K 5.5 and BUN 88 Plan for 4 hour HD session today Electrolytes: K was high yesterday Lab Results Component Value Date CREATININE 13.63 (H) 05/28/2020 BUN 88 (H) 05/28/2020 NA 137 05/28/2020 K 5.5 (H) 05/28/2020 CL 96 (L) 05/28/2020 CO2 23 05/28/2020 Lab Results Component Value Date PTH 164.0 (H) 01/14/2019 CALCIUM 9.5 05/28/2020 PHOS 8.3 (H) 05/28/2020 Acid/Base status: Bicarbonate was 23 yesterday. Lab Results Component Value Date PHART 7.41 10/09/2017 PCO2 34 (L) 10/09/2017 PO2ART 123 (H) 10/09/2017 XFK1YCL 21 (L) 10/09/2017 BEART -2.9 (L) 10/09/2017 [id number] 97.6 10/09/2017 Lab Results Component Value Date LACTATE 0.8 05/28/2020 Volume status/BP: No intake or output data in the 24 hours ending 05/29/20 0749 Lab Results Component Value Date ALBUMIN 3.6 05/28/2020 ALBUMIN 3.6 05/28/2020 Hematology: Anemic. Concern for GI bleed. Plan for EGD today Lab Results Component Value Date IRON 24 (L) 07/21/2019 TIBC 202 (L) 07/21/2019 FERRITIN 433.9 (H) 07/21/2019 Lab Results Component Value Date WBC 8.3 05/29/2020 HGB 7.3 (L) 05/29/2020 HCT 23.4 (L) 05/29/2020 MCV 93.2 05/29/2020 PLT 399 05/29/2020 Plan: HD today without UF. Check CMV PCR. Monitor renal panel Will follow. Discussed with primary service. MELVINA CASTELLON 05/29/2020 Thank you for allowing us to participate in this patient's care. Discussed with Consult Staff. Cosigned by Sandra Carranza MD at 05/29/2020 6:21 PM EDT Associated attestation - Sandra Carranza MD - 05/29/2020 6:21 PM EDT I have seen and examined the patient, reviewed the labs, notes, assessments, and/or procedures performed by the fellow physician and I agree with the documented findings and plan of care. ESRD on HHD, plan for HD today and 3xweek while in house Send CMV PCR Further management as documented by fellow and per primary team Sandra Carranza MD Transplant Nephrology Pager: [phone] * Jenny Alaniz MD - 05/28/2020 2:15 PM EDTAssociated Order(s): IP CONSULT TO SPINE SURGERY [facility] DEPARTMENT OF NEUROSURGERY INPATIENT CONSULTATION Patient: Leoncio Rollins Jr. : 1975 NEUROSURGERY ATTENDING: Dr. Villalpando PRIMARY CARE PHYSICIAN: Edgar Fournier MD Time of Notification/Consultation: 05/28/2020 Time patient evaluated by author: 05/28/2020 Name of Referring Hospital/Institution: [facility] Medicine Team Referring provider: Attending Provider Unknown HISTORY CHIEF COMPLAINT: discitis HPI: Leoncio Rollins Jr. is a 45 y.o. male with a history of ESRD on HD at home ([facility]), SAL cirrhosis s/p liver transplant 2018, presenting to the hospital as direct admission with complaint of subacute low back pain and weakness following spinal surgery. Patient has a history of L5 discitis (S.epi)with epidural abscess s/p L4-5 lami/discectomy (Dr. Pierce; OSH). The patient was on IV vancomycinand Doxycycline but then was unable to continue the IV abx. Following the surgery and refused PT/OTand was discharged home with OP PT/OT. He denies fevers, chills, shortness of breath, cough, chest pain. He only complains of right anterior thigh pain that is a 10/10 pain and is unchanged. He denies changes in sensation in his lower extremities, describes minimal weakness mostly in the setting oflower extremity pain, and denies urinary or bladder incontinence or retention. He presented to the ED at [facility] with these symptoms and CT lumbar spine concerning for L5-S1 discitisand osteomyelitis with abnormal soft tissue and fluid density of posterior paraspinous tissues L3-S1 with apparent extension into the central canal at L5, suspicious for soft tissue infection. Neurosurgery asked to evaluate this patient. REVIEW OF SYSTEMS Negative except as noted above PMH: Past Medical History: Diagnosis Date ??? [...] TIPS PROCEDURE 10/2016 ??? TIPS Revision 04/2017 H Social History Socioeconomic History ??? Marital status: [...] file Gets together: Not on file Attends jainism service: Not on file Active member of [...] Social History Narrative ??? Not on file [facility] Family History Problem Relation Age of Onset ??? Diabetes Sister ??? Anesthesia problems Neg Hx MEDS Prior to Admission medications Medication Sig Start Date End Date Taking? Authorizing Provider aspirin 81 MG chewable tablet Chew 1 tablet (81 mg total) by mouth daily with breakfast. 10/17/17 YesBere Feng CNP carBAMazepine (TEGRETOL) 200 mg tablet Take 200 mg by mouth at bedtime. Yes Historical Provider, cycloSPORINE modified (NEORAL) 25 MG capsule Take 2 capsules (50 mg total) by mouth 2 times a day. 03/09/20 Yes Jack Ordoñez MD doxazosin (CARDURA) 8 MG tablet 8 mg daily. 05/12/18 Yes Historical Provider, entecavir (BARACLUDE) 0.5 MG tablet Take 1 tablet (0.5 mg total) by mouth every 7 days. 01/27/20 YesJack Ordoñez MD famotidine (PEPCID) 20 MG tablet Take 20 mg by mouth daily. Yes Historical Provider, gabapentin (NEURONTIN) 100 MG capsule Take 4 capsules (400 mg total) by mouth daily. 07/01/19 Yes Malinda Rhodes MD hydrALAZINE (APRESOLINE) 50 MG tablet Take 100 mg by mouth 3 times a day. Yes Historical Provider, insulin NPH isoph U-100 human (HUMULIN N NPH INSULIN KWIKPEN) 100 unit/mL (3 mL) InPn Inject subcutaneously 20 units in the AM and 8 units in the PM. Patient taking differently: Inject subcutaneously 48 units in the AM and 24 units in the PM as needed 07/01/19 Yes Malinda Rhodes MD mycophenolate (CELLCEPT) 250 mg capsule Take 1 capsule (250 mg total) by mouth 2 times a day. 11/12/19 Yes Jack Ordoñez MD NIFEdipine (PROCARDIA-XL) 90 MG (OSM) 24 hr tablet Take 90 mg by mouth 2 times a day. 04/23/18 Yes Historical Provider, ondansetron (ZOFRAN-ODT) 4 MG disintegrating tablet every 8 hours as needed. 04/11/18 Yes Historical Provider, polyethylene glycol (MIRALAX) 17 gram packet Take 17 g by mouth 2 times a day as needed. 01/17/19 YesNiurka Valles MD ALPRAZolam (XANAX) 1 MG tablet Take by mouth. Historical Provider, blood sugar diagnostic Strp Use to test blood sugar up to 4 times a day. Diagnosis for use: E 9.65.For use with One Touch Verio meters. 10/18/17 Bere Feng CNP blood-glucose meter (Optrace VERIO SYSTEM) Mis Use as instructed. 10/18/17 Bere Feng CNP ergocalciferol (VITAMIN D2) 50,000 unit capsule Take 50,000 Units by mouth. Twice a week Historical Provider, lancets (Optrace DELICA LANCETS) 33 gauge Mis Use 1 strip as directed 4 times daily before meals and at bedtime. 10/18/17 Bere Feng CNP pen needle, diabetic 32 gauge x 5/32 Ndle Use as directed to inject insulin 4 times daily. 10/16/17 Bere Feng CNP cloNIDine HCl (CATAPRES) 0.1 MG tablet Take 1 tablet (0.1 mg total) by mouth 2 times a day. Patient taking differently: Take 0.1 mg by mouth if needed. 07/25/19 05/28/20 Keon Qureshi MD liraglutide (VICTOZA 2-GALI) 0.6 mg/0.1 mL (18 mg/3 mL) PnIj Inject 1.8 mg subcutaneously daily. 05/28/20 Historical Provider, ALL Allergies Allergen Reactions ??? Codeine Sulfate Hyper ??? Codeine Other (See Comments) Becomes hyper EXAMINATION Temp: [98.6 ??F (37 ??C)] 98.6 ??F (37 ??C) Heart Rate: [112] 112 Resp: [16] 16 BP: (123)/(87) 123/87 *GENERAL: Well developed, well nourished, obese, dishelved male *WOUND: *HEENT: NC/AT, trachea midline *CV: Normocardic, no edema, peripheral pulses intact, adequate cap refill *PULM: Respirations unlabored on RA *ABD: Soft, NTTP, no r/g *MSK: No obvious gross deformities appreciated *NEUROLOGICAL: GCS 4-5-6, AOx3 --Cranial Nerves: CN II-XII grossly intact, PERRL, EOMI, face symmetric, tongue midline *Motor: FCCx4, graded motor exam as below D EE EF WE WF FE FF HI RUE: 5 5 5 5 5 5 5 5 LUE: 5 5 5 5 5 5 5 5 HF KE KF DF PF EHL RLE: 5 5 5 5 5 5 LLE: 5 5 5 5 5 5 --Sensation: Sensation intact to light touch and symmetric in bilateral upper and lower extremities. Pain to the left anterior thigh. --Reflex: No hyperreflexia. 4 beats of clonus on the RLE. --Tone: No abnormality of tone appreciated in bilateral upper or lower extremities. --Rectal: Deferred LABORATORY AND RADIOLOGY RESULTS Labs Lab Results Component Value Date GLUCOSE 138 (H) 03/12/2020 BUN 56 (H) 03/12/2020 CO2 24 03/12/2020 CREATININE 8.79 (H) 03/12/2020 K 4.8 03/12/2020 NA 138 03/12/2020 CL 101 03/12/2020 CALCIUM 8.8 03/12/2020 MG 1.8 07/30/2019 PHOS 6.8 (H) 03/12/2020 Lab Results Component Value Date ALT 14 03/12/2020 AST 13 03/12/2020 ALKPHOS 112 03/12/2020 BILITOT 0.4 03/12/2020 Lab Results Component Value Date WBC 5.9 03/12/2020 HGB 11.6 (L) 03/12/2020 HCT 33.6 (L) 03/12/2020 MCV 96.3 03/12/2020 PLT 242 03/12/2020 Lab Results Component Value Date INR 1.1 07/19/2019 Lab Results Component Value Date CHOLTOT 236 (H) 01/27/2020 TRIG 303 (H) 01/27/2020 HDL 32 (L) 01/27/2020 LDL 143 01/27/2020 Lab Results Component Value Date PHART 7.41 10/09/2017 PCO2 34 (L) 10/09/2017 PO2ART 123 (H) 10/09/2017 [id number] 21 (L) 10/09/2017 BEART -2.9 (L) 10/09/2017 [id number] 97.6 10/09/2017 Lab Results Component Value Date ABS Positive 03/12/2020 ABOGROUP O 03/12/2020 RH Negative 03/12/2020 Invalid input(s): PLTFUNASP Imaging Review No new imaging in our system Recent Radiology Reports X-ray Comparison Images Result Date: 05/28/2020 Images associated with this accession number were presented to us for comparison to an examination performed here. X-ray Comparison Images Result Date: 05/28/2020 Images associated with this accession number were presented to us for comparison to an examination performed here. X-ray Comparison Images Result Date: 05/28/2020 Images associated with this accession number were presented to us for comparison to an examination performed here. ASSESMENT & PLAN 45 y.o. male with a recent L4-5 Lami/Discectomy who presents with low back pain and pain limited weakness. CT lumbar spine from an outside spine concerning for continued discitis. Patient neurologically intact on exam. Diagnoses: Morbid obesity End stage renal disease SAL cirrhosis s/p liver transplant 2018 PLAN: - No acute neurologic intervention - Recommend MRI lumbar spine with and without contrast and recommending obtaining patient's old MRIfrom [facility] for comparison - Recommend repeating blood cultures as well as other infectious work up markers including, CBC, BMP, ESR, CRP - Abx per primary team/Transplant infectious disease; pathology from outside hospital S. Epi - Will discuss with staff If further questions or concerns should arise, do not hesitate to contact the neurosurgery residenton call, [phone]. Jenny Alaniz MD Neurosurgery Resident 2:15 PM 05/28/2020 *0912 Cosigned by Liliana Villalpando MD at 05/28/2020 11:40 PM EDT Associated attestation - Liliana Villalpando MD - 05/28/2020 11:40 PM EDT I saw and examined the patient on 05/28/20, and discussed the case with the resident and agree withthe findings and plan as documented in the resident???s note. Pending MRI of the lumbar spine. documented in this encounter Nursing Notes * Lindsay Rivera RN - 06/08/2020 6:20 PM EDT Pt being transferred to SNF. PIV removed per protocol no s/s of bleeding with removal. RN provided transport team with patient belonging bags and team helped patient to get things together to take toSNF. RN called report to Nely. RN Verbalized that squad was here and getting patient loaded up andthey would be heading her way shortly. No further questions from SNF staff. * Roxi Gurrola RN - 06/06/2020 7:35 PM EDT RN spoke to HD to inquire on reason patient did not receive HD today as scheduled. Per HD team patient was bumped and will receive HD 06/07/2020 afternoon around 1400. MD from [facility] team was notified of this change and will place note to day team MD. * Diana Damico RN - 06/02/2020 1:20 AM EDT Treatment Team notified of patient's elevated Blood pressure. No new orders from the Team. Will continue to monitor. Diana Damico RN * Analia Patel RN - 06/01/2020 4:32 PM EDT FORKLIFT OPERATOR notified this RN about pt blood pressure of 186/105 automatically. This RN notified team and retook BP manually. Pt's manual BP reading was 195/90. This RN also hooked pt back up to 3 L of oxygenas his spo2 reading was low. RN will continue to monitor. * Ricardo Matthews RN - 05/30/2020 6:32 AM EDT Blood transfusion started vital taken no reaction noted the blood running well. * Ricardo Matthews RN - 05/30/2020 3:55 AM EDT Patient confused and emotional crying a lot reported of pain medication given , Hypotensive BP 81/37 mmHg team paged. * Ricardo Matthews RN - 05/30/2020 1:43 AM EDT Patient is confused , dilutional , hallucinating and agitated, pulled his telemetry box , and newlyinserted Iv line, open bowel decline cleaning , linen change and became irritable with persistance .team page. * Ricardo Matthews RN - 05/29/2020 11:03 PM EDT Patient received from dialysis reported feeling sick , pain well managed,vital taken HR 145 b/m given medication team informed .patient pulled all his Iv access stating its many.family called to follow up on patient progress. For close monitor for signs of confusion. * Heena Adler RN - 05/29/2020 5:50 AM EDT Patient pulled out IV, RN attempted to restart on. Unable to obtain IV access, currently patient has no IV access. Team aware. US IV consult already in from earlier attempt. Will continue to monitor. * Heena Adler RN - 05/28/2020 11:15 PM EDT Spoke with phlebotomy again about stat CBC needing to be drawn. Will continue to monitor. * Heena Adler RN - 05/28/2020 10:15 PM EDT Received call from MRI stating patient was unwilling to complete the exam. Team aware. Will continue to monitor. * Heena Adler RN - 05/28/2020 9:00 PM EDT Spoke with phlebotomy about stat CBC needing to be drawn. Will continue to monitor. documented in this encounter Miscellaneous Notes * Plan of Care - Wilmer Syed RN - 06/08/2020 4:31 PM EDT Hemodialysis Treatment Plan of Care [...] toxicity as indicated Patient Tolerated Hemodialysis Procedure Fair Hemodialysis Weights Dry Weight: 124 kg (273 lb 5.9 oz)(TBD) Fluid removal goal: To DW As ashwin Last Treatment Post Weight: 113.8 kg (250 lb 14.1 oz) Pre Weight: 112.3 kg (247 lb 9.2 oz) Pre Weight Source: Bed Scale Weight Post Weight: 111.3 kg (245 lb 6 oz) Post Weight Source: Bed Scale Weight HD Post Treatment Vitals: BP: 173/86 Heart Rate: 104 Temp: 97.7 ??F (36.5 ??C) Resp: 20 Fluid Net Fluid Removal Calculation (Any blood products given during HD treatment are accounted forin net fluid removal. Do not count in patient's I and O): Rinseback Volume (mL): 400 mL Hemodialysis Output (mL): 1408 mL *Net fluid removal (ml): 1008 mL* Delivered Dialysis Prescription: Potassium (mEq/L): 2 Calcium (mEq/L): 2.5 Sodium (mEq/L): 140 Bicarbonate (mEq/L): 35 Blood Flow: 350 Dialysate Flow: Prescribed Treatment Time (minutes): 240 Duration of Treatment (minutes): 225 minutes HD Access:LAF HD Access Function: Well Post-Treatment procedures: Blood returned, Access bleed time < 10 min Needle Size: 15g Lidocaine Used: Yes Access Needle Placement / Position: Up and up Other / Comments: Was a Crit Line Used for this Treatment? [place] of provider contacted to adjusted target fluid removal? Provider Name or n/a: NA Was an order modification for fluid removal given? NA Did patient meet fluid removal goal of 0.7 L above or below ordered UF? No RN Report Received From: Allison BATES Report Given To: Lizeth Hepatitis Status: Hep B Surface Ab: positive Hep B Core Total Ab: negative Hepatitis B Surface Ag: positive Machine Number: [id number] Hemodialysis Meds: Aranesp (Darbepoetin) No therapy plan of the specified type found. IV Iron (Venofer) No therapy plan of the specified type found. Reason for admission POST-OP INFECTION * Care Coordination - Emelina Churchill RN - 06/08/2020 2:39 PM EDT Yellow packet placed on 8th Floor. Emelina Churchill RN CM [phone] * Continuation of Care - Jay Day MD - 06/08/2020 2:22 PM EDT Images from the original note were not included. CONTINUITY OF CARE FORM Patient name: Leoncio Rollins Jr. Patient : 1975 Age: 45 y.o. Gender: male Date of admission: 05/28/2020 Date of discharge: 06/08/2020 Attending provider: Aby Cavazos MD Primary care physician: Edgar Fournier MD Code status: Full Code Allergies: Allergies Allergen Reactions ??? Codeine Sulfate Hyper ??? Codeine Other (See Comments) Becomes hyper Diagnoses Present on Admission Primary Diagnosis: Osteomyelitis (CMS Dx) Discharge Diagnosis : Active Hospital Problems Diagnosis Date Noted ??? Osteomyelitis (CMS Dx) [M86.9] 05/28/2020 ??? Anemia, unspecified [D64.9] 11/12/2019 ??? ESRD (end stage renal disease) (CMS Dx) [N18.6] 09/13/2018 ??? Immunosuppression (CMS Dx) [D84.9] 10/31/2017 ??? Liver transplanted (CMS Dx) [Z94.4] Resolved Hospital Problems Diagnosis Date Noted Date Resolved ??? Esophagitis [K20.90] 11/12/2019 06/08/2020 Prognosis: fair Rehabilitation potential: fair Diet Diet Orders Diet consistent carb 60-75g/meal; renal starting at 06/03 1003 Dysphagia Assessment and Recommendations (when available): Dysphagia Diet Recommended (when available): As listed above Services Required Mcc: Yes PT Interventions and Frequency: Treatment/Interventions: LE strengthening/ROM, Patient/family training, Gait training, Continued evaluation, Therapeutic Activity PT Frequency: minimum 3x/week PT Recommendations: Recommendation: Short-term skilled PT Equipment Recommended: Defer until further assessment OT Interventions and Frequency: Treatment Interventions: ADL retraining, Activity Tolerance training, Functional transfer training, Patient/Family training, Fine motor coordination activities, Therapeutic Activity, UE strengthening/ROM, Neuro muscular reeducation, Compensatory technique education, Energy Conservation OT Frequency: minimum 3x/week OT Recommendations: Recommendation: Short-term skilled OT Equipment Recommendations: Defer at this time Weight bearing status: Per PT/OT recommendations Bedside Swallow Recommendations (when available): Speech Language Recommendations (when available): Needs 24 hour supervision due to cognitive impairment: No Discharge Medications Medications: Please refer to the internal inter-facility medication reconciliation for medications Discharge Specific Orders Discharge specific orders: LABS: weekly CBC, diff, renal, ESR, CRP. Cyclosporine level checks (Fluconazole raises Cyclosporine level) Vancomycin 1000 mg with dialysis (05/28/2020-07/22/2020) Fluconazole 200 mg for two weeks (06/07/2020- 06/20/2020) Isolation Patient Isolation Status Isolation Added Added By Removed Removed By None active Removed Contact / Droplet / Airborne for Procedures 06/05/20 María Galvez MD 06/06/20 Aby Cavazos MD Contact / Droplet / Airborne for Procedures 05/28/20 María Galvez MD 05/29/20 Estephania Cruz MD Physician Certification of Medically Necessary Transportation Type and reason for transportation: Stretcher - patient is non-ambulatory. Reason for transport to another facility: Rehabilitation Patient requires: None Follow-up Appointments and Post Hospital Discharge Physician Name Future Appointments Date Time Provider Department Center 07/01/2020 2:30 PM Ravi Biswas MD [facility] No follow-up provider specified. SNF to call their PCP for an appointment upon discharge. Physician Signature and Credentials I certify that I have reviewed the information contained herein, and that the information is a trueand accurate reflection of the individual's condition. Discharging Physician: Electronically signed by JAY DAY MD 06/08/2020, 2:22 PM SOCIAL WORK DOCUMENTATION Facility/Agency Name: [facility] Facility Name: [facility] Number to call report: LTACH Provider Contact Number: Report: [phone] Fax: [phone] Level of Care at Discharge: Less than 30 day convalescent stay: MILIND/SANAM [id number] Completed: Family Member Name and Relationship Notified at Discharge: Kym Rollins Family Contact Number: in room Television Host or Band Builder Name and Telephone Number: Emelina Cook RN [phone] NURSE DISCHARGE ASSESSMENT Vitals: Patient Vitals for the past 4 hrs: BP Pulse 06/08/20 1345 146/90 96 06/08/20 1330 147/81 88 06/08/20 1315 136/79 92 06/08/20 1300 149/80 92 06/08/20 1245 132/78 90 06/08/20 1230 (!) 157/106 94 06/08/20 1215 129/78 89 06/08/20 1210 138/80 89 06/08/20 1150 (!) 156/91 -- Orientation: Orientation Level: Oriented X4 Patient Behaviors: Calm, Cooperative Respiratory: Respiratory (WDL): Within Defined Limits Respiratory Pattern: Regular, Easy, Unlabored Chest Assessment: Chest expansion symmetrical Bilateral Breath Sounds: Clear, Diminished R Breath Sounds: Clear, Diminished L Breath Sounds: Clear, Diminished Cardiac: Cardiac (WDL): Within Defined Limits Heart Sounds: S1, S2 Pacemaker: No Edema: Peripheral Vascular (WDL): Within Defined Limits Edema: Generalized Generalized Edema: Non-pitting RLE Edema: Non Pitting Edema LLE Edema: Non Pitting Edema Wounds: Comfort/Mattress: Additional Comfort/Environmental Interventions: Head of bed elevated Musculoskeletal: Musculoskeletal (WDL): Exceptions to WDL LUE: Full movement RUE: Full movement RLE: Limited movement(Pain) LLE: Limited movement(Pain) GI: Gastrointestinal (WDL): Exceptions to WDL GI Symptoms: None Last BM Date: 06/07/20(Per Patient) Bowel Incontinence: No Stool Source: Rectum : Genitourinary (WDL): Exceptions to WDL Genitourinary Symptoms: Diminished urine production Urinary Incontinence: No Urine Source: Urethra Lines and Drains: Patient Lines/Drains/Airways Status Active Line / PIV Line Name: Placement date: Placement time: Site: Days: HD Catheter Dual Lumen (Vas Cath) Tunneled Right Internal Jugular 07/23/19 1018 Internal Jugular 321 Peripheral IV 06/06/20 Right Upper arm 06/06/20 1341 Upper arm 2 NHSN Device Days (05/09/2020 to 06/07/2020) Central line: 11 Urinary catheter: 0 ADL's: Level of Assistance: Minimal assist, patient does 75% or more Feeding: Able to feed self Level of Assistance: Minimal assist Chery Fall Risk Chery Fall Risk Score: (!) 45 Restraints: RN to RN Handoff: RN Giving Report:: Bethanie Luke RN Receiving Report:: RAJESH Gamez Reason for Handoff: Report given to covering RN, Periop transfer to IP unit, Report given to Receiving RN Nurse and Credentials RN Handoff Completed by: Bethanie Luke on 06/08/2020 * Care Coordination - Russell Ac RN - 06/05/2020 2:43 PM EDT @ZOLTAN@ Case Management/Social Work Department Progress Note Patient Information Hospital day: 8 Inpatient/Observation: Inpatient Level of Care: Gary PEREZ Team Admit date: 05/28/2020 Admission diagnosis: POST-OP INFECTION PMH: has a past medical history of Acute pancreatitis, Anemia, Ascites, Diabetes mellitus (CMS Dx),Dialysis patient (CMS Dx), Esophageal varices with bleeding (CMS Dx), GERD (gastroesophageal refluxdisease), Hearing loss, Hepatic encephalopathy (CMS Dx), Hypertension, Liver cirrhosis secondary toNASH (CMS Dx), Pulmonary HTN (CMS Dx), Sleep apnea, and Vitamin D deficiency. PCP: Edgar Fournier MD Home Pharmacy: [facility] [address] [facility] [address] [facility] - [place], [place] - [address] [facility] [id number] [facility] [address] [facility] [id number] Medical Insurance Coverage: Payor: MEDICARE / Plan: MEDICARE A AND B / Product Type: Medicare / Other Pertinent Information Spoke to pt at length about need for PT/OT after discharge. Still waiting on cultures for long termIV antibiotics for Osteo. Nely Wood admissions has also talked with him today. Pt will be going to [facility] level of care and they allow one visitor a day for 3 hours. He really needs to go to [facility] as it has the same doctors , an excellent rehab department and visitor policy. I think the waiting for discharge is making him worry. He will need another Covid test before admit to [facility]. Will task to weekend SW for possible Dc over the weekend. Discharge Plan Anticipated discharge plan: [facility] Anticipated discharge date: 06/07/2020 CM/SW will continue to follow and remain available for discharge planning needs. RUSSELL AC Cell [phone] * Plan of Care - Gypsy Granados RN - 06/04/2020 7:14 PM EDT Hemodialysis Treatment Plan of Care [...] toxicity as indicated Patient Tolerated Hemodialysis Procedure pt tolerated well, last 30 minutes c/o left leg pain Hemodialysis Weights Dry Weight: 124 kg (273 lb 5.9 oz) Fluid removal goal: 625 Last Treatment Post Weight: 111 kg (244 lb 11.4 oz) Pre Weight: 115 kg (253 lb 8.5 oz) Pre Weight Source: Bed Scale Weight Post Weight: 113.8 kg (250 lb 14.1 oz) Post Weight Source: Bed Scale Weight HD Post Treatment Vitals: BP: 132/70 Heart Rate: 114 Temp: 97.3 ??F (36.3 ??C) Resp: 16 Fluid Net Fluid Removal Calculation (Any blood products given during HD treatment are accounted forin net fluid removal. Do not count in patient's I and O): Rinseback Volume (mL): 400 mL Hemodialysis Output (mL): 1075 mL *Net fluid removal (ml): 625 mL* Delivered Dialysis Prescription: Potassium (mEq/L): 2 Calcium (mEq/L): 2.5 Sodium (mEq/L): 140 Bicarbonate (mEq/L): 35 Blood Flow 350 Dialysate Flow 700 Prescribed Treatment Time (minutes): 240 Duration of Treatment (minutes): 210 minutes HD Access left lower AVF HD Access Function WELL, Post-Treatment procedures: Blood returned, Access bleed time < 10 min Needle Size: 15g Lidocaine Used: N/A Access Needle Placement / Position 2 X 15G UP Other / Comments: difficulty cannulation arterial site removed clots from site, above with good cannulation, 2 cannulation venous site hematoma no good aspiration, cannulated above site with good results. Pt request off machine with 45 minutes remaining, spoke with MD mirza to terminated with 30 minutes remaining. No other complaints. Pt under EDW, intermittently low blood pressure with elevated HR.Pain meds given during tx Was a Crit Line Used for this Treatment? NO Name of provider contacted to adjusted target fluid removal? Provider Name or n/a NO, Adjustment per order Was an order modification for fluid removal given? NO Did patient meet fluid removal goal of 0.7 L above or below ordered UF? YES RN Report Received From Marielle BATES RN Report Given To Marielle BATES Hepatitis Status: Hep B Surface Ab: positive Hep B Core Total Ab: negative Hepatitis B Surface Ag: positive Machine Number: [id number] Hemodialysis Meds: Aranesp (Darbepoetin) No therapy plan of the specified type found. IV Iron (Venofer) No therapy plan of the specified type found. Reason for admission POST-OP INFECTION * Care Coordination - Russell Ac RN - 06/04/2020 11:33 AM EDT Case Management/Social Work Department Progress Note Patient Information Hospital day: 7 Inpatient/Observation: Inpatient Level of Care: [facility] Team Admit date: 05/28/2020 Admission diagnosis: POST-OP INFECTION PMH: has a past medical history of Acute pancreatitis, Anemia, Ascites, Diabetes mellitus (CMS Dx),Dialysis patient (CMS Dx), Esophageal varices with bleeding (CMS Dx), GERD (gastroesophageal refluxdisease), Hearing loss, Hepatic encephalopathy (CMS Dx), Hypertension, Liver cirrhosis secondary toNASH (CMS Dx), Pulmonary HTN (CMS Dx), Sleep apnea, and Vitamin D deficiency. PCP: Edgar Fournier MD Home Pharmacy: [facility] [address] [facility] [address] [facility] [id number] [facility] [address] [facility] [address] [facility] [id number] [facility] [address] [facility] [address] [facility] [id number] Medical Insurance Coverage: Payor: MEDICARE / Plan: MEDICARE A AND B / Product Type: Medicare / Other Pertinent Information TC from [facility] admissions Nely [phone]. She states they will take pt when he is medically ready for SNF vs [facility]-t[facility] level. She will call pt today to speak about their facility. She states he will needanother Covid test. Policy for [facility] is covid neg test within 7 days of admit. Spoke to Kym by phone . She is agreeable to the plan . Just asking about visiting policy at [facility]. Team states awaiting cultures from IR procedure yesterday. Discharge Plan Anticipated discharge plan: [facility] Anticipated discharge date: 06/06/2020 CM/SW will continue to follow and remain available for discharge planning needs. RUSSELL AC Cell [phone] * Care Coordination - Russell Ac RN - 06/03/2020 1:58 PM EDT Case Management/Social Work Department Progress Note Patient Information Hospital day: 6 Inpatient/Observation: Inpatient Level of Care: Gary Md Team Admit date: 05/28/2020 Admission diagnosis: POST-OP INFECTION PMH: has a past medical history of Acute pancreatitis, Anemia, Ascites, Diabetes mellitus (CMS Dx),Dialysis patient (CMS Dx), Esophageal varices with bleeding (CMS Dx), GERD (gastroesophageal refluxdisease), Hearing loss, Hepatic encephalopathy (CMS Dx), Hypertension, Liver cirrhosis secondary toNASH (CMS Dx), Pulmonary HTN (CMS Dx), Sleep apnea, and Vitamin D deficiency. PCP: Edgar Fournier MD Home Pharmacy: [facility] [address] [facility] [address] [facility] [address] [facility] - [place], [place] - [address] [facility] [address] [facility] [address] [facility] [address] [facility] [facility] [address] [facility] [id number] Medical Insurance Coverage: Payor: MEDICARE / Plan: MEDICARE A AND B / Product Type: Medicare / Other Pertinent Information Spoke to pt at bedside with MD team present. Discussed PT/OT recommendations for short term rehab. He at first was adamant about not going to a facility. After further conversation he admitted that he would benefit from having PT/OT therapies everyday as opposed to 3 x a week. He currently cannot walk. We discussed the [facility] facility and he had questions about where it was . It would be a good fit as they have dialysis on campus. He is from 2 hours away. He stated his would be here in the afternoon to further discuss this plan. He was also asking about a facility closer to [facility]. Referral sent to [facility] per [facility] so they can start to review. Awaiting cultures from IR epidural procedure today. Discharge Plan Anticipated discharge plan: Hopefully SNF Anticipated discharge date: 06/05/2020 CM/SW will continue to follow and remain available for discharge planning needs. RUSSELL AC Cell [phone] * Plan of Care - Rose Haynes RN - 06/02/2020 12:46 PM EDT Problem: Fall Prevention Goal: Patient will [...] of Care - Shilpa Rico RN - 06/02/2020 12:05 PM EDT Hemodialysis Treatment Plan of Care [...] as indicated Patient Tolerated Hemodialysis Procedure with difficulty. Hemodialysis Weights Dry Weight: 124 kg (273 lb 5.9 oz) Fluid removal goal: 1 L Last Treatment Post Weight: 111 kg (244 lb 11.4 oz) Pre Weight: 104.4 kg (230 lb 2.6 oz) Pre Weight Source: Bed Scale Weight Post Weight: 104.4 kg (230 lb 2.6 oz) Post Weight Source: Bed Scale Weight HD Post Treatment Vitals: BP: (!) 161/99 Heart Rate: 122 Temp: 98 ??F (36.7 ??C) Resp: 18 Fluid Net Fluid Removal Calculation (Any blood products given during HD treatment are accounted forin net fluid removal. Do not count in patient's I and O): Rinseback Volume (mL): 300 mL Hemodialysis Output (mL): 345 mL *Net fluid removal (ml): 0 mL* Delivered Dialysis Prescription: Potassium (mEq/L): 2 Calcium (mEq/L): 2.5 Sodium (mEq/L): 140 Bicarbonate (mEq/L): 35 Blood Flow: 350 Dialysate Flow: 700 Prescribed Treatment Time (minutes): 240 Duration of Treatment (minutes): 66 minutes HD Access:Left fistula HD Access Function: Not well, infiltrated Post-Treatment procedures: Blood returned Needle Size: 15g Lidocaine Used: No Access Needle Placement / Position: Up & Up Other / Comments: Pt cannulated on straight line drawn on fistula after venogram. Arterial line positional with high pressures, then RN noticed venous line infiltrated after 66 mins of tx. Blood rinsed back slowly and treatment ended. Dr Alcantar and Dr Polanco notified. Was a Crit Line Used for this Treatment? Tse [place] of provider contacted to adjusted target fluid removal? Provider Name or n/a: n/a Was an order modification for fluid removal given? No Did patient meet fluid removal goal of 0.7 L above or below ordered UF? NA RN Report Received From: Lashell BATES Report Given To: Rose Hepatitis Status: Hep B Surface Ab: positive Hep B Core Total Ab: negative Hepatitis B Surface Ag: positive Machine Number: [id number] Hemodialysis Meds: Aranesp (Darbepoetin) No therapy plan of the specified type found. IV Iron (Venofer) No therapy plan of the specified type found. Reason for admission POST-OP INFECTION * Plan of Care - Dewey Shipley MD - 06/02/2020 8:16 AM EDT Neurosurgery Brief Progress Note S: *MRI reviewed with mild interval progression of ventral abscess. A: Leoncio Rollins Jr., 45 y.o. male recent L4-5 Lami/Discectomy who presents with low back pain and pain limited weakness with mild progression compared to prior MRI. Patient has not failed a trial of antibiotics as he left the hospital after his last surgery. As patient remains neurologically intact agree with IR guided biopsy and targeted Abx. P: - No acute neurosurgical intervention at this time - Abx per primary and IR Dewey Shipley MD Neurosurgery Resident [phone] * Plan of Care - Tory Curtis RN - 05/31/2020 11:10 PM EDT Problem: Glucose Imbalance related to [...] Outcome: Progressing * Plan of Care - Desmond Demarco RN - 05/31/2020 12:15 AM EDT Problem: Glucose Imbalance related to [...] is within target range Outcome: Progressing Problem: Knowledge Deficit Goal: Patient/family/caregiver demonstrates understanding of disease process, treatment plan, medications, and discharge instructions Description: Complete learning assessment and assess knowledge base. Outcome: Progressing Problem: Inadequate Gas Exchange Goal: Patient is adequately oxygenated and ventilation is improved Description: Assess and monitor vital signs, oxygen saturation, respiratory status to include rate,depth, effort, and lung sounds, mental status, cyanosis, and labs (ABG's). Monitor effects of medications that may sedate the patient. Collaborate with respiratory therapy to administer medications and treatments. Outcome: Progressing Problem: Knowledge Deficit Goal: Patient/family/caregiver [...] Outcome: Progressing * Plan of Care - Gypsy Granados RN - 05/29/2020 10:32 PM EDT Hemodialysis Treatment Plan of Care [...] and/or drug toxicity as indicated Patient Tolerated Hemodialysis: Pt absence of intradialytic symptoms. C/o left lower leg pain with agitation and anxiety. Hemodialysis Weights Dry Weight: 124 kg (273 lb 5.9 oz) Fluid removal goal: 500 Last Treatment Post Weight: 126.1 kg (278 lb) Pre Weight: 111.6 kg (246 lb 0.5 oz) Pre Weight Source: Bed Scale Weight Post Weight: 111 kg (244 lb 11.4 oz) Post Weight Source: Bed Scale Weight HD Post Treatment Vitals: BP: 104/52 Heart Rate: 145 Temp: 98.4 ??F (36.9 ??C) Resp: 22 Fluid Net Fluid Removal Calculation (Any blood products given during HD treatment are accounted forin net fluid removal. Do not count in patient's I and O): Rinseback Volume (mL): 400 mL Hemodialysis Output (mL): 400 mL *Net fluid removal (ml): 498 mL* Delivered Dialysis Prescription: Potassium (mEq/L): 2 Calcium (mEq/L): 2.5 Sodium (mEq/L): 138 Bicarbonate (mEq/L): 35 Blood Flow 300 Dialysate Flow 600 Prescribed Treatment Time (minutes): 240 Duration of Treatment (minutes): 180 minutes HD Access left LFA AVF HD Access Function: WELL Post-Treatment procedures: Blood returned, Access bleed time > 10 min Needle Size: 15g Lidocaine Used: N/A Access Needle Placement / Position 2 UP Other / Comments: Pt was absence of intradialytic symptoms, c/o rt stabbing leg pain, pain meds given with little relieve (see Mar). Pt requested off machine with 3 hrs remaining. notified tx terminated. Pt had elevated heart rate per CMU, Auscultated heart with 100 bpm, irregular. Pt very anxious and agitated requesting return to room Was a Crit Line Used for this Treatment? Tse Bonito of provider contacted to adjusted target fluid removal? N/A Provider Name or n/a: N/A Was an order modification for fluid removal given? N/A Did patient meet fluid removal goal of 0.7 L above or below ordered UF? N/A RN Report Received From Vera BATES RN Report Given To Chapito Matthews RN Hepatitis Status: Hep B Surface Ab: positive Hep B Core Total Ab: negative Hepatitis B Surface Ag: positive Machine Number: [id number] Hemodialysis Meds: Aranesp (Darbepoetin) No therapy plan of the specified type found. IV Iron (Venofer) No therapy plan of the specified type found. Reason for admission POST-OP INFECTION * Plan of Care - Homa Cobb RRT - 05/29/2020 10:21 AM EDT Patient uses BIPAP prn at home. documented in this encounter Plan of Treatment Upcoming Encounters Date Type Department Care Team (Late st Contact Info) Description 07/15/2024 9:00 AM EST Hospital Encounter [facility] Interventional Radiology [address] [place] [phone] Herve Carrillo MD [address] [facility] [address] [facility] [place] [phone] Scheduled Orders Name Type Priority Associated Diagnoses Orde r Schedule Anaerobic culture Microbiology STAT Once for 1 Occurrences starting 06/03/2020 until 06/03/2020 Body Fluid Culture plus Stain Microbiology STAT Once for 1 Occur [facility] starting 06/03/2020 until 06/03/2020 documented as of this encounter Procedures Procedure Name Priority Date/Time Associated Diagnosis Comments EKG REPORT - SCAN 06/11/2020 12: 49 PM EDT POC GLU MONITORING DEVICE Routine 06/08/2020 5:05 PM EDT POC GLU MONITORING DEVICE Routine 06/08/2020 3:33 PM EDT POC GLU MONITORING DEVICE Routine 06/08/2020 10:12 AM EDT HEPATIC FUNCTION PANEL Routine 0 7:20 AM EDT RENAL FUNCTION PANEL W/EGFR Routine 06/08/2020 7:20 AM EDT CYCLOSPORINE LEVEL Routine 06/08/2020 7: 20 AM EDT DIFFERENTIAL Routine 06/08/2020 7:20 AM EDT PROTIME-INR Routine 06/08/2020 7:20 AM EDT CBC Routine 06/08/2020 7:20 AM EDT C-REACTIVE PROTEIN Routine 06/08/2020 7: 20 AM EDT MAGNESIUM Routine 06/08/2020 7:20 AM EDT POC GLU MONITORING DEVICE Routine 06/07/2020 5:55 PM EDT POC GLU MONITORING DEVICE Routine 06/07/2020 12:50 PM EDT HEPATIC FUNCTION PANEL Routine 0 7:27 AM EDT RENAL FUNCTION PANEL W/EGFR Routine 06/07/2020 7:27 AM EDT CYCLOSPORINE LEVEL Routine 06/07/2020 7: 27 AM EDT CBC Routine 06/07/2020 7:27 AM EDT MAGNESIUM Routine 06/07/2020 7:27 AM EDT VANCOMYCIN, RANDOM Routine 06/07/2020 7: 27 AM EDT POC GLU MONITORING DEVICE Routine 06/06/2020 9:23 PM EDT POC GLU MONITORING DEVICE Routine 06/06/2020 6:38 PM EDT POC GLU MONITORING DEVICE Routine 06/06/2020 2:16 PM EDT POC GLU MONITORING DEVICE Routine 06/06/2020 9:51 AM EDT RENAL FUNCTION PANEL W/EGFR Routine 06/06/2020 6:20 AM EDT POC GLU MONITORING DEVICE Routine 06/05/2020 8:58 PM EDT 2019 NOVEL CORONAVIRUS (COVID-19), FRANKLYN-B Routine 06/05/2020 6:42 PM EDT POC GLU MONITORING DEVICE Routine 06/05/2020 2:42 PM EDT VASCI VENOUS DUPLEX LE BILATERAL Routine 06/05/2020 1:54 PM EDT HEPATIC FUNCTION PANEL Routine 0 12:00 PM EDT RENAL FUNCTION PANEL W/EGFR Routine 06/05/2020 12:00 PM EDT DIFFERENTIAL Routine 06/05/2020 12:00 PM EDT PROTIME-INR Routine 06/05/2020 12:00 PM EDT CBC Routine 06/05/2020 12:00 PM EDT MAGNESIUM Routine 06/05/2020 12:00 PM EDT VANCOMYCIN, RANDOM Routine 06/05/2020 12 :00 PM EDT POC GLU MONITORING DEVICE Routine 06/05/2020 8:39 AM EDT POC GLU MONITORING DEVICE Routine 06/04/2020 9:27 PM EDT POC GLU MONITORING DEVICE Routine 06/04/2020 1:27 PM EDT POC GLU MONITORING DEVICE Routine 06/04/2020 8:31 AM EDT HEPATIC FUNCTION PANEL Routine 0 6:57 AM EDT RENAL FUNCTION PANEL W/EGFR Routine 06/04/2020 6:57 AM EDT CYCLOSPORINE LEVEL Routine 06/04/2020 6: 57 AM EDT DIFFERENTIAL Routine 06/04/2020 6:57 AM EDT PROTIME-INR Routine 06/04/2020 6:57 AM EDT CBC Routine 06/04/2020 6:57 AM EDT MAGNESIUM Routine 06/04/2020 6:57 AM EDT VANCOMYCIN, RANDOM Routine 06/04/2020 6: 57 AM EDT POC GLU MONITORING DEVICE Routine 06/03/2020 4:51 PM EDT VASCI DUPLEX SCAN OF HEMODIALYSIS ACCESS Routine 06/03/2020 3:54 PM EDT POC GLU MONITORING DEVICE Routine 06/03/2020 9:[address] ASPIRATION FINE NEEDLE EA ADDL LESION Routine 06/03/2020 9:10 AM EDT ROUTINE CULTURE PLUS STAIN Routine 06/03/2020 8:31 AM EDT ANAEROBIC CULTURE Routine 06/03/2020 8:3 1 AM EDT CBC STAT 06/03/2020 7:21 AM EDT RENAL FUNCTION PANEL W/EGFR Routine 06/03/2020 5:04 AM EDT MAGNESIUM Routine 06/03/2020 5:04 AM EDT VANCOMYCIN, RANDOM Routine 06/03/2020 5: 04 AM EDT POC GLU MONITORING DEVICE Routine 06/02/2020 9:49 PM EDT POC GLU MONITORING DEVICE Routine 06/02/2020 6:50 PM EDT POC GLU MONITORING DEVICE Routine 06/02/2020 1:05 PM EDT IR ANGIO DIALYSIS CIRCUIT Routine 06/02/2020 9:00 AM EDT HEPATIC FUNCTION PANEL Routine 0 4:07 AM EDT RENAL FUNCTION PANEL W/EGFR Routine 06/02/2020 4:07 AM EDT IRON STUDIES Routine 06/02/2020 4:07 AM EDT CYCLOSPORINE LEVEL Routine 06/02/2020 4: 07 AM EDT DIFFERENTIAL Routine 06/02/2020 4:07 AM EDT PROTIME-INR Routine 06/02/2020 4:07 AM EDT CBC Routine 06/02/2020 4:07 AM EDT MAGNESIUM Routine 06/02/2020 4:07 AM EDT FERRITIN Routine 06/02/2020 4:07 AM EDT VANCOMYCIN, RANDOM Routine 06/02/2020 4: 07 AM EDT POC GLU MONITORING DEVICE Routine 06/01/2020 5:50 PM EDT XR COMPARISON IMAGES Routine 06/01/2020 5:38 PM EDT ECHOCARDIOGRAM 2D COMPLETE Routine 06/01/2020 2:49 PM EDT POC GLU MONITORING DEVICE Routine 06/01/2020 11:27 AM EDT HEPATIC FUNCTION PANEL Routine 0 5:17 AM EDT RENAL FUNCTION PANEL W/EGFR Routine 06/01/2020 5:17 AM EDT SED RATE Routine 06/01/2020 5:17 AM EDT DIFFERENTIAL Routine 06/01/2020 5:17 AM EDT PROTIME-INR Routine 06/01/2020 5:17 AM EDT CBC Routine 06/01/2020 5:17 AM EDT C-REACTIVE PROTEIN Routine 06/01/2020 5: 17 AM EDT MAGNESIUM Routine 06/01/2020 5:17 AM EDT VANCOMYCIN, TROUGH Routine 06/01/2020 5: 17 AM EDT POC GLU MONITORING DEVICE Routine 05/31/2020 10:00 PM EDT POC GLU MONITORING DEVICE Routine 05/31/2020 6:09 PM EDT POC GLU MONITORING DEVICE Routine 05/31/2020 1:04 PM EDT POC GLU MONITORING DEVICE Routine 05/31/2020 8:10 AM EDT ECG 12-LEAD (MUSE) Routine 05/31/2020 6: 17 AM EDT PREPARE RBC, LEUKOREDUCED Routine 05/31/2020 6:15 AM EDT HEPATIC FUNCTION PANEL Routine 0 4:29 AM EDT RENAL FUNCTION PANEL W/EGFR Routine 05/31/2020 4:29 AM EDT CYCLOSPORINE LEVEL Routine 05/31/2020 4: 29 AM EDT DIFFERENTIAL Routine 05/31/2020 4:29 AM EDT PROTIME-INR Routine 05/31/2020 4:29 AM EDT CBC Routine 05/31/2020 4:29 AM EDT MAGNESIUM Routine 05/31/2020 4:29 AM EDT CBC Timed 05/30/2020 11:33 PM EDT POC GLU MONITORING DEVICE Routine 05/30/2020 10:36 PM EDT MRI LUMBAR SPINE WITHOUT CONTRAST STAT 05/30/2020 8:44 PM EDT POC GLU MONITORING DEVICE Routine 05/30/2020 4:19 PM EDT HEPATIC FUNCTION PANEL Routine 0 12:06 PM EDT LACTIC ACID STAT 05/30/2020 12:06 PM EDT RENAL FUNCTION PANEL W/EGFR Routine 05/30/2020 12:06 PM EDT SED RATE Routine 05/30/2020 12:06 PM EDT CYCLOSPORINE LEVEL Timed 05/30/2020 12 :06 PM EDT PROTIME-INR Routine 05/30/2020 12:06 PM EDT CBC Routine 05/30/2020 12:06 PM EDT C-REACTIVE PROTEIN Routine 05/30/2020 12 :06 PM EDT MAGNESIUM Routine 05/30/2020 12:06 PM EDT VANCOMYCIN, RANDOM Routine 05/30/2020 12 :06 PM EDT POC GLU MONITORING DEVICE Routine 05/30/2020 10:33 AM EDT BLOOD GAS, ARTERIAL STAT 05/30/2020 1 0:21 AM EDT TRANSFUSE RED BLOOD CELLS Routine 05/30/2020 6:32 AM EDT CYTOMEGALOVIRUS DNA, QUANT, RT PCR Routine 05/30/2020 12:29 AM EDT CMV IGM ANTIBODY Routine 05/30/2020 12:2 9 AM EDT CMV IGG ANTIBODY Routine 05/30/2020 12:2 9 AM EDT HEPATIC FUNCTION PANEL STAT 0 12:29 AM EDT RENAL FUNCTION PANEL W/EGFR STAT 05/30/2020 12:29 AM EDT CYCLOSPORINE LEVEL Timed 05/30/2020 12 :29 AM EDT CBC STAT 05/30/2020 12:29 AM EDT MAGNESIUM STAT 05/30/2020 12:29 AM EDT POC GLU MONITORING DEVICE Routine 05/29/2020 11:14 PM EDT HEPATITIS B VIRUS (HBV), REAL-TIME PCR, QUANT Routine 05/29/2020 6:49 PM EDT XR CHEST PA OR AP STAT 05/29/2020 4:3 6 PM EDT EGD WITH BIOPSY EGD/Sm Bowel 05/29/2020 2:22 PM EDT hiatal hernia, GE junction nodule POC GLU MONITORING DEVICE Routine 05/29/2020 2:17 PM EDT DILATATION Routine 05/29/2020 2:09 PM EDT POC GLU MONITORING DEVICE Routine 05/29/2020 11:44 AM EDT PROTIME-INR STAT 05/29/2020 9:36 AM EDT VENOUS BLOOD GAS, LINE/SYRINGE STAT 05/29/2020 8:56 AM EDT CBC STAT 05/29/2020 12:07 AM EDT SURGICAL PATHOLOGY EXAM Routine 05/29/2020 12:00 AM EDT POC GLU MONITORING DEVICE Routine 05/28/2020 6:01 PM EDT ANTIBODY IDENTIFICATION Routine 05/28/2020 5:02 PM EDT ELIUD ANTI-IGG Routine 05/28/2020 5:01 PM EDT HEPATITIS B CORE ANTIBODY STAT 05/28/2020 3:41 PM EDT HEPATITIS A IGM Add-On 05/28/2020 3:41 PM EDT HEPATITIS C ANTIBODY STAT 05/28/2020 3:41 PM EDT HEPATITIS B SURFACE ANTIBODY, QUANTITATIVE STAT 05/28/2020 3:41 PM EDT HEPATITIS B SURFACE ANTIGEN STAT 05/28/2020 3:41 PM EDT BLOOD CULTURE-PERIPHERAL STAT 05/28/2020 3:41 PM EDT VANCOMYCIN, RANDOM STAT 05/28/2020 3: 41 PM EDT 2019 NOVEL CORONAVIRUS (COVID-19), FRANKLYN-B Routine 05/28/2020 2:19 PM EDT HEPATIC FUNCTION PANEL STAT 0 2:04 PM EDT LACTIC ACID STAT 05/28/2020 2:04 PM EDT RENAL FUNCTION PANEL W/EGFR STAT 05/28/2020 2:04 PM EDT SED RATE STAT 05/28/2020 2:04 PM EDT ABO/RH STAT 05/28/2020 2:04 PM EDT BLOOD CULTURE-PERIPHERAL STAT 05/28/2020 2:04 PM EDT PROTIME-INR STAT 05/28/2020 2:04 PM EDT CBC STAT 05/28/2020 2:04 PM EDT ANTIBODY SCREEN STAT 05/28/2020 2:04 PM EDT C-REACTIVE PROTEIN Routine 05/28/2020 2: 04 PM EDT MAGNESIUM STAT 05/28/2020 2:04 PM EDT XR COMPARISON IMAGES STAT 05/28/2020 1:41 PM EDT XR COMPARISON IMAGES STAT 05/28/2020 1:41 PM EDT XR COMPARISON IMAGES STAT 05/28/2020 1:40 PM EDT ECG 12-LEAD (MUSE) Routine 05/28/2020 1: 29 PM EDT documented in this encounter Results * EKG REPORT - SCAN (06/11/2020 12:49 PM EDT) us Scanning Uchhi SCAN DOCS - NO RESULTS Final Res ult * (ABNORMAL) POC Glucose Monitoring Device (06/08/2020 5:05 PM EDT) POC Glucose Monitoring Device 224(H) 70 - 100 mg/dL 06/08/2020 5:06 PM EDT [facility] Blood specimen (specimen) 06/08/2020 5:05 PM EDT 06/08/2020 5:06 PM EDT us Aby Cavazos MD POINT OF CARE TEST ORDERABLES Fi nal Result [facility] [address] [facility] * (ABNORMAL) POC Glucose Monitoring Device (06/08/2020 3:33 PM EDT) POC Glucose Monitoring Device 174(H) 70 - 100 mg/dL 06/08/2020 3:43 PM EDT [facility] Blood specimen (specimen) 06/08/2020 3:33 PM EDT 06/08/2020 3:43 PM EDT us Aby Cavazos MD POINT OF CARE TEST ORDERABLES Fi nal Result Performing Organization Address [facility] Co de Phone Number [facility] [address] [facility] * (ABNORMAL) POC Glucose Monitoring Device (06/08/2020 10:12 AM EDT) POC Glucose Monitoring Device 169(H) 70 - 100 mg/dL 06/08/2020 10:13 AM EDT [facility] Blood specimen (specimen) 06/08/2020 10:12 AM EDT 06/08/2020 10:13 AM EDT us Aby Cavazos MD POINT OF CARE TEST ORDERABLES Fi nal Result Performing Organization Address City/[facility]/ZIP Co de Phone Number [facility] [address] [facility] * (ABNORMAL) Cyclosporine level (06/08/2020 7:20 AM EDT) Cyclosporine, Blood <30(L) 100 - 400 ng/mL 06/08/2020 1:20 PM EDT [facility]ALTH [facility] Comment: Detection limit: ??30 ng/mL. ??Performed via chemiluminescent microparticle immunoassay on the [employer] i1000. Whole blood specimen (specimen) 06/08/2020 7:20 AM EDT 06/08/2020 8:06 AM EDT us Jay Day MD LAB BLOOD ORDERABLES Final Res ult [facility] [address] [place] [address], [facility] * (ABNORMAL) Renal Function Panel w/EGFR (06/08/2020 7:20 AM EDT) Sodium 138 133 - 146 mmol/L 06/08/2020 8:34 AM EDT [facility] Potassium 4.5 3.5 - 5.3 mmol/L 06/08/2020 8:34 AM EDT [facility] Chloride 99 98 - 110 mmol/L 06/08/2020 8:34 AM EDT [facility] CO2 26 21 - 33 mmol/L 06/08/2020 8:34 AM EDT [facility] Anion Gap 13 3 - 16 mmol/L 06/08/2020 8:34 AM EDT [facility] BUN 49(H) 7 - 25 mg/dL 06/08/2020 8:34 AM EDT [facility] Creatinine 11.23(H) 0.60 - 1.30 mg/dL 06/08/2020 8:34 AM EDT [facility] Glucose 135(H) 70 - 100 mg/dL 06/08/2020 8:34 AM [facility]T [facility] Calcium 8.9 8.6 - 10.3 mg/dL 06/08/2020 8:34 AM EDT [facility] Phosphorus 5.8(H) 2.1 - 4.7 mg/dL 06/08/2020 8:34 AM EDT [facility] Albumin 2.9(L) 3.5 - 5.7 g/dL 06/08/2020 8:34 AM EDT [facility] Osmolality, Calculated 301 278 - 305 mOsm/kg 06/08/2020 8:34 AM EDT [facility] eGFR AA CKD-EPI 6 See note. 0 8:34 AM EDT [facility] Comment: As of 2015 the estimated GFR is calculated from serum creatinine using the Chronic Kidney Disease Epidemiology Collaboration (CKD-EPI) equation in patients 18 years and older. ??The reference range is >60 mL/min/1.73m2. ??eGFR values greater than 90 will be reported as >90mL/min/1.73m2. Reference: Neftali Castle Schmid CH, Ranulfo QUEZADA, Colten KEARNEY, , Quan MILLER, et. al. A new equation to estimate glomerular filtration rate. ??Russell Crane Man Med. 2009:150(9):604-12 eGFR NONAA CKD-EPI 5 See note. 06/08/2020 8:34 AM EDT [facility] Comment: As of 2015 the estimated GFR is calculated from serum creatinine using the Chronic Kidney Disease Epidemiology Collaboration (CKD-EPI) equation in patients 18 years and older. ??The reference range is >60 mL/min/1.73m2. ??eGFR values greater than 90 will be reported as >90mL/min/1.73m2. Reference: Neftali Castle Schmid CH, Ranulfo QUEZADA, Colten KEARNEY, , Quan MILLER, et. al. A new equation to estimate glomerular filtration rate. ??Russell Crane Man Med. 2009:150(9):604-12 Plasma specimen (specimen) 06/08/2020 7:20 AM EDT 06/08/2020 8:06 AM EDT us Jay Day MD LAB BLOOD ORDERABLES Final Res ult [facility] [address] [place] [address], [facility] * (ABNORMAL) Protime-INR (06/08/2020 7:20 AM EDT) Protime 14.9 12.1 - 15.1 seconds 06/08/2020 8:36 AM EDT [facility] INR 1.2(H) 0.9 - 1.1 06/08/2020 8:36 AM EDT [facility] Comment: RECOMMENDED THERAPEUTIC RANGES USING INR : ?Stable oral anticoagulant therapy: ? 2.0 - 3.0 ?Mechanical prosthetic heart valve: ? 2.5 - 3.5 ?Recurrent acute myocardial infarction: ? 2.5 - 3.5 Plasma specimen (specimen) 06/08/2020 7:20 AM EDT 06/08/2020 8:06 AM EDT Jay Day MD LAB BLOOD ORDERABLES Final Res ult Performing Organization Address [facility] de Phone Number [facility] [address] [facility]. [address] * Magnesium (06/08/2020 7:20 AM EDT) Pathologist [facility] Magnesium 2.0 1.5 - 2.5 mg/dL 06/08/2020 8:34 AM EDT [facility] Plasma specimen (specimen) 06/08/2020 7:20 AM EDT 06/08/2020 8:06 AM EDT Jay Day MD LAB BLOOD ORDERABLES Final Res ult Performing Organization Address [facility] de Phone Number [facility] [address] [facility]. [address] * (ABNORMAL) Hepatic Function Panel (06/08/2020 7:20 AM EDT) Total Bilirubin 0.4 0.0 - 1.5 mg/dL 06/08/2020 8:34 AM EDT [facility] Bilirubin, Direct 0.08 0.00 - 0.40 mg/dL 06/08/2020 8:34 AM EDT [facility] AST 8(L) 13 - 39 U/L 06/08/2020 8:34 AM EDT [facility] ALT 6(L) 7 - 52 U/L 06/08/2020 8:34 AM EDT [facility] Alkaline Phosphatase 67 36 - 125 U/L 06/08/2020 8:34 AM EDT [facility] Total Protein 5.7(L) 6.4 - 8.9 g/dL 06/08/2020 8:34 AM EDT [facility] Albumin 2.9(L) 3.5 - 5.7 g/dL 06/08/2020 8:34 AM EDT [facility] Bilirubin, Indirect 0.32 0.00 - 1.10 mg/dL 06/08/2020 8:34 AM EDT [facility] Plasma specimen (specimen) 06/08/2020 7:20 AM EDT 06/08/2020 8:06 AM EDT us Jay Day MD LAB BLOOD ORDERABLES Final Res ult [facility] [address] [id number], [facility] * (ABNORMAL) Differential (06/08/2020 7:20 AM EDT) Myelocytes Relative 8.8(H) 0.0 - 0.0 % 06/08/2020 8:51 AM EDT [facility] Metamyelocytes Relative 2.0(H) 0.0 - 0.0 % 06/08/2020 8:51 AM EDT [facility] Neutrophils Relative 57.8 40.0 - 80.0 % 06/08/2020 8:51 AM EDT [facility] Lymphocytes Relative 17.6 15.0 - 45.0 % 06/08/2020 8:51 AM EDT [facility] Monocytes Relative 6.9 0.0 - 12.0 % 06/08/2020 8:51 AM EDT [facility] Eosinophils Relative 5.9 0.0 - 8.0 % 06/08/2020 8:51 AM EDT [facility] Basophils Relative 0.0 0.0 - 1.0 % 06/08/2020 8:51 AM EDT [facility] Neutrophils Absolute 3,063 1,500 - 7,800 /uL 06/08/2020 8:51 AM EDT [facility] Metamyelocytes Absolute 106(H) 0 - 0 /uL 06/08/2020 8:51 AM EDT [facility] Myelocytes Absolute 466(H) 0 - 0 /uL 06/08/2020 8:51 AM EDT [facility] Lymphocytes Absolute 933 850 - 3,900 /uL 06/08/2020 8:51 AM EDT [facility] Monocytes Absolute 366 200 - 950 /uL 06/08/2020 8:51 AM EDT [facility] Eosinophils Absolute 313 15 - 500 /uL 06/08/2020 8:51 AM EDT [facility] Basophils Absolute 0 0 - 200 /uL 06/08/2020 8:51 AM EDT [facility] Polychromasia Present 06/08/2020 8:51 AM EDT [facility] Hypochromasia Present 06/08/2020 8:51 AM EDT [facility] PLT Morphology Platelet morphology appears normal 06/08/2020 8:51 AM EDT [facility] Whole blood specimen (specimen) 06/08/2020 7:20 AM EDT 06/08/2020 8:06 AM EDT Jay Day MD LAB BLOOD ORDERABLES Final Res ult Performing Organization Address City/State/[facility] Co de Phone Number [facility] [address] * (ABNORMAL) CBC (06/08/2020 7:20 AM EDT) WBC 5.3 3.8 - 10.8 10E3/uL 06/08/2020 8:16 AM EDT [facility] RBC 2.43(L) 4.20 - 5.80 10E6/uL 06/08/2020 8:16 AM EDT [facility] Hemoglobin 7.2(L) 13.2 - 17.1 g/dL 06/08/2020 8:16 AM EDT [facility] Hematocrit 22.2(L) 38.5 - 50.0 % 06/08/2020 8:16 AM EDT [facility] MCV 91.2 80.0 - 100.0 fL 06/08/2020 8:16 AM EDT [facility] MCH 29.5 27.0 - 33.0 pg 06/08/2020 8:16 AM EDT [facility] MCHC 32.4 32.0 - 36.0 g/dL 06/08/2020 8:16 AM EDT [facility] RDW 15.3(H) 11.0 - 15.0 % 06/08/2020 8:16 AM EDT [facility] Platelets 246 140 - 400 10E3/uL 06/08/2020 8:16 AM EDT [facility] MPV 7.8 7.5 - 11.5 fL 06/08/2020 8:16 AM EDT [facility] Whole blood specimen (specimen) 06/08/2020 7:20 AM EDT 06/08/2020 8:06 AM EDT Jay Day MD LAB BLOOD ORDERABLES Final Res ult [facility] [address] * (ABNORMAL) C-Reactive Protein (06/08/2020 7:20 AM EDT) Pathologist [facility] CRP 47.0(H) 1.0 - 10.0 mg/L 06/08/2020 8:34 AM EDT [facility] Plasma specimen (specimen) 06/08/2020 7:20 AM EDT 06/08/2020 8:06 AM EDT María Galvez MD LAB BLOOD ORDERABLES Final Res ult [facility] [address] * (ABNORMAL) POC Glucose Monitoring Device (06/07/2020 5:55 PM EDT) POC Glucose Monitoring Device 171(H) 70 - 100 mg/dL 06/07/2020 5:56 PM EDT [facility] Blood specimen (specimen) 06/07/2020 5:55 PM EDT 06/07/2020 5:56 PM EDT us Aby Cavazos MD POINT OF CARE TEST ORDERABLES Fi nal Result Performing Organization Address [facility] Co de Phone Number [facility] [address] [place] [address] * (ABNORMAL) POC Glucose Monitoring Device (06/07/2020 12:50 PM EDT) Pathologist [facility] POC Glucose Monitoring Device 123(H) 70 - 100 mg/dL 06/07/2020 12:51 PM EDT [facility] Blood specimen (specimen) 06/07/2020 12:50 PM EDT 06/07/2020 12:51 PM EDT us Aby Cavazos MD POINT OF CARE TEST ORDERABLES Fi nal Result Performing Organization Address [facility] de Phone Number [address] * (ABNORMAL) Cyclosporine level (06/07/2020 7:27 AM EDT) Pathologist [facility] Cyclosporine, Blood <30(L) 100 - 400 ng/mL 06/07/2020 12:49 PM EDT [facility] [place] [facility] Comment: Detection limit: ??30 ng/mL. ??Performed via chemiluminescent microparticle immunoassay on the [employer] i1000. Whole blood specimen (specimen) 06/07/2020 7:27 AM EDT 06/07/2020 8:20 AM EDT us Aby Cavazos MD LAB BLOOD ORDERABLES Final Resul t Performing Organization Address [facility] de Phone Number [address] * (ABNORMAL) Hepatic Function Panel, AM (06/07/2020 7:27 AM EDT) Pathologist [facility] Total Bilirubin 0.4 0.0 - 1.5 mg/dL 06/07/2020 8:40 AM EDT [facility] Bilirubin, Direct 0.08 0.00 - 0.40 mg/dL 06/07/2020 8:40 AM EDT [facility] [facility] AST 10(L) 13 - 39 U/L 06/07/2020 8:40 AM EDT [facility] ALT 4(L) 7 - 52 U/L 06/07/2020 8:40 AM EDT [facility] Alkaline Phosphatase 63 36 - 125 U/L 06/07/2020 8:40 AM EDT [facility] Total Protein 6.0(L) 6.4 - 8.9 g/dL 06/07/2020 8:40 AM EDT [facility] Albumin 3.0(L) 3.5 - 5.7 g/dL 06/07/2020 8:40 AM EDT [facility] Bilirubin, Indirect 0.32 0.00 - 1.10 mg/dL 06/07/2020 8:40 AM EDT [facility] Plasma specimen (specimen) 06/07/2020 7:27 AM EDT 06/07/2020 8:09 AM EDT us Aby Cavazos MD LAB BLOOD ORDERABLES Final Resul t [facility] [address] * (ABNORMAL) CBC, AM (06/07/2020 7:27 AM EDT) WBC 5.3 3.8 - 10.8 10E3/uL 06/07/2020 8:25 AM EDT [facility] RBC 2.52(L) 4.20 - 5.80 10E6/uL 06/07/2020 8:25 AM EDT [facility] Hemoglobin 7.5(L) 13.2 - 17.1 g/dL 06/07/2020 8:25 AM EDT [facility] Hematocrit 23.1(L) 38.5 - 50.0 % 06/07/2020 8:25 AM EDT [facility] MCV 91.8 80.0 - 100.0 fL 06/07/2020 8:25 AM EDT [facility] MCH 29.9 27.0 - 33.0 pg 06/07/2020 8:25 AM EDT [facility] MCHC 32.6 32.0 - 36.0 g/dL 06/07/2020 8:25 AM EDT [facility] RDW 15.1(H) 11.0 - 15.0 % 06/07/2020 8:25 AM EDT [facility] Platelets 259 140 - 400 10E3/uL 06/07/2020 8:25 AM EDT [facility] MPV 7.6 7.5 - 11.5 fL 06/07/2020 8:25 AM EDT [facility] Whole blood specimen (specimen) 06/07/2020 7:27 AM EDT 06/07/2020 8:09 AM EDT us Aby Cavazos MD LAB BLOOD ORDERABLES Final Resul t Performing Organization Address City/[facility]/ZIP Co de Phone Number [facility] [address] [facility] * Magnesium, AM (06/07/2020 7:27 AM EDT) Magnesium 2.1 1.5 - 2.5 mg/dL 06/07/2020 8:40 AM EDT [facility] Plasma specimen (specimen) 06/07/2020 7:27 AM EDT 06/07/2020 8:09 AM EDT us Aby Cavazos MD LAB BLOOD ORDERABLES Final Resul t [facility] [address] [facility] * (ABNORMAL) Renal Function Panel w/EGFR (06/07/2020 7:27 AM EDT) Sodium 139 133 - 146 mmol/L 06/07/2020 8:40 AM EDT [facility] Potassium 4.4 3.5 - 5.3 mmol/L 06/07/2020 8:40 AM EDT [facility] Chloride 99 98 - 110 mmol/L 06/07/2020 8:40 AM EDT [facility] CO2 26 21 - 33 mmol/L 06/07/2020 8:40 AM EDT [facility] Anion Gap 14 3 - 16 mmol/L 06/07/2020 8:40 AM EDT [facility] BUN 44(H) 7 - 25 mg/dL [facility]/07[facility]2020 [facility] Creatinine 10.02(H) 0.60 - 1.30 mg/dL 06/07/2020 8:40 AM EDT [facility] Glucose 121(H) 70 - 100 mg/dL 06/07/2020 8:40 AM EDT [facility] Calcium 9.3 8.6 - 10.3 mg/dL 06/07/2020 8:40 AM EDT [facility] Phosphorus 5.1(H) 2.1 - 4.7 mg/dL 06/07/2020 8:40 AM [facility] Albumin 3.0(L) 3.5 - 5.7 g/dL 06/07/2020 8:40 AM [facility] Osmolality, Calculated 300 278 - 305 mOsm/kg 06/07/2020 8:40 AM [facility] eGFR AA CKD-EPI 6 See note. 0 8:40 AM [facility] Comment: As of 2015 the [...] new equation to estimate glomerular filtration rate. ??Russell Crane Man Med. 2009:150(9):604-12 eGFR NONAA CKD-EPI 6 See note. 06/07/2020 8:40 AM [facility] Comment: As of 2015 the [...] new equation to estimate glomerular filtration rate. ??Russell Crane Man Med. 2009:150(9):604-12 Plasma specimen (specimen) 06/07/2020 7:27 AM EDT 06/07/2020 8:09 AM EDT us Aby Cavazos MD LAB BLOOD ORDERABLES Final Resul t Performing Organization Address [facility] Co de Phone Number [facility] [address] [place] [address]. [address] * Vancomycin, random (06/07/2020 7:27 AM EDT) Vancomycin Random 15.5 ug/mL 06/07/2020 8:35 AM EDT [facility] [place] [facility] Comment:Reference range not established for this test. Plasma specimen (specimen) 06/07/2020 7:27 AM EDT 06/07/2020 8:09 AM EDT us Aby Cavazos MD LAB BLOOD ORDERABLES Final Resul t Performing Organization Address [facility] de Phone Number [facility] [place] [facility] [address] [place] [address]. [address] * (ABNORMAL) POC Glucose Monitoring Device (06/06/2020 9:23 PM EDT) POC Glucose Monitoring Device 113(H) 70 - 100 mg/dL 06/06/2020 9:24 PM EDT [facility] Blood specimen (specimen) 06/06/2020 9:23 PM EDT 06/06/2020 9:24 PM EDT us Aby Cavazos MD POINT OF CARE TEST ORDERABLES Fi nal Result Performing Organization Address [facility] de Phone Number [facility] [place] [facility] [address] [place] [address] * (ABNORMAL) POC Glucose Monitoring Device (06/06/2020 6:38 PM EDT) POC Glucose Monitoring Device 164(H) 70 - 100 mg/dL 06/06/2020 6:38 PM EDT [facility] [place] [facility] Blood specimen (specimen) 06/06/2020 6:38 PM EDT 06/06/2020 6:38 PM EDT us Aby Cavazos MD POINT OF CARE TEST ORDERABLES Fi nal Result Performing Organization Address City/[facility]/ZIP Co de Phone Number [facility] [address] [place] [address] * (ABNORMAL) POC Glucose Monitoring Device (06/06/2020 2:16 PM EDT) POC Glucose Monitoring Device 153(H) 70 - 100 mg/dL 06/06/2020 2:16 PM EDT [facility] Blood specimen (specimen) 06/06/2020 2:16 PM EDT 06/06/2020 2:16 PM EDT us Aby Cavazos MD POINT OF CARE TEST ORDERABLES Fi nal Result Performing Organization Address [facility] Co de Phone Number [facility] [address] * (ABNORMAL) POC Glucose Monitoring Device (06/06/2020 9:51 AM EDT) POC Glucose Monitoring Device 122(H) 70 - 100 mg/dL 06/06/2020 9:52 AM EDT [facility] Blood specimen (specimen) 06/06/2020 9:51 AM EDT 06/06/2020 9:52 AM EDT us Aby Cavazos MD POINT OF CARE TEST ORDERABLES Fi nal Result Performing Organization Address City/[facility] Co de Phone Number [facility] [address] [place] [address] * (ABNORMAL) Renal Function Panel w/EGFR (06/06/2020 6:20 AM EDT) Sodium 140 133 - 146 mmol/L 06/06/2020 8:01 AM [facility] Potassium 4.2 3.5 - 5.3 mmol/L 06/06/2020 8:01 AM [facility] Chloride 101 98 - 110 mmol/L 06/06/2020 8:01 AM [facility] CO2 27 21 - 33 mmol/L 06/06/2020 8:01 AM [facility] Anion Gap 12 3 - 16 mmol/L 06/06/2020 8:01 AM [facility] BUN 36(H) 7 - 25 mg/dL 06/06/2020 8:01 AM [facility] Creatinine 8.28(H) 0.60 - 1.30 mg/dL 06/06/2020 8:01 AM [facility] Glucose 119(H) 70 - 100 mg/dL 06/06/2020 8:01 AM [facility] Calcium 9.0 8.6 - 10.3 mg/dL 06/06/2020 8:01 AM [facility] Phosphorus 4.9(H) 2.1 - 4.7 mg/dL 06/06/2020 8:01 AM [facility] Albumin 2.9(L) 3.5 - 5.7 g/dL 06/06/2020 8:01 AM [facility] Osmolality, Calculated 299 278 - 305 mOsm/kg 06/06/2020 8:01 AM [facility] eGFR AA CKD-EPI 8 See note. 0 8:01 AM [facility] Comment: As of 2015 the estimated GFR is calculated from serum creatinine using the Chronic Kidney Disease Epidemiology Collaboration (CKD-EPI) equation in patients 18 years and older. ??The reference range is >60 mL/min/1.73m2. ??eGFR values greater than 90 will be reported as >90mL/min/1.73m2. Reference: Isabel , Neftali LA, Marion CH, [place] YL, Abel AF, 3rd, Quan HI, et. al. A new equation to estimate glomerular filtration rate. ??Russell Crane Man Med. 2009:150(9):604-12 eGFR NONAA CKD-EPI 7 See note. 2019 8:01 AM [facility] Comment: As of 2015 the [...] new equation to estimate glomerular filtration rate. ??Russell Crane Man Med. 2009:150(9):604-12 Plasma specimen (specimen) 06/06/2020 6:20 AM EDT 06/06/2020 7:20 AM EDT us Aby Cavazos MD LAB BLOOD ORDERABLES Final Resul t Performing Organization Address [facility]/ZIP Co de Phone Number [facility] [address] * (ABNORMAL) POC Glucose Monitoring Device (06/05/2020 8:58 PM EDT) [facility] POC Glucose Monitoring Device 115(H) 70 - 100 mg/dL 06/05/2020 9:01 PM EDT [facility] Blood specimen (specimen) 06/05/2020 8:58 PM EDT 06/05/2020 9:00 PM EDT us Aby Cavazos MD POINT OF CARE TEST ORDERABLES Fi nal Result Performing Organization Address [facility] Co de Phone Number [facility] [address] * 2019 Novel Coronavirus (CoVID-19), FRANKLYN-B (06/05/2020 6:42 PM EDT) Pathologist [facility] SARS-CoV-2 Not Detected Not Detected 06/06/2020 10:52 AM EDT [facility] Comment: This test is an amplified nucleic acid assay performed on a real time PCR platform. ??This test was developed and its performance characteristics determined by the [facility]. ??This test has not been [...] been sent to the [facility] in accordance with state requirements. ??For a healthcare provider fact sheet, see https://www.fda.gov/media/262632/download. ??For a patient fact sheet, see https://www.fda.gov/media/607546/download. Test LOINC ordered 76876-3 2019 10:52 AM EDT [facility] Device identifier [employer] COVID-19 Combo Kit_EUA 06/06/2020 10:52 AM EDT [facility] First Test No 06/06/2020 10:52 AM EDT [facility] Healthcare employee No 06/06/2020 10:52 AM EDT [facility] Symptomatic No 06/06/2020 10:52 AM EDT [facility] Hospitalized Yes 06/06/2020 10:52 AM EDT [facility] In ICU No 06/06/2020 10:52 AM EDT [facility] Congregate Care Resident No 06/06/2020 10:52 AM EDT [facility] No 06/06/2020 10:52 AM EDT [facility] Nasopharyngeal swab (specimen) NASOPHARYNGEAL STRUCTURE / Unknown 06/05/2020 6:42 PM EDT 06/05/2020 7:01 PM EDT [facility] - 06/06/2020 10:52 AM EDT Does the patient have symptoms of Covid-19 (eg. Fever, dyspnea, cough, loss of smell)?->No Does the patient urgently (in <24 hours) require a surgery, invasive procedure, or cardiac stress test?->No Is the patient being admitted to labor and delivery in active labor?->No Does the patient fit any of these categories? (select all that apply)->Disharge placement pending COVID testing us María Galvez MD BODY FLUIDS AND STOOLS ORDERAB LES Final Result Performing Organization Address City/[facility]/ZIP Co de Phone Number [facility] [place] [facility] [address] * (ABNORMAL) POC Glucose Monitoring Device (06/05/2020 2:42 PM EDT) POC Glucose Monitoring Device 164(H) 70 - 100 mg/dL 06/05/2020 2:43 PM EDT [facility] [place] [facility] Blood specimen (specimen) 06/05/2020 2:42 PM EDT 06/05/2020 2:42 PM EDT us Aby Cavazos MD POINT OF CARE TEST ORDERABLES Fi nal Result Performing Organization Address [facility]/ZIP Co de Phone Number [facility] [address] * VASC Venous Duplex Lower Extremity Bilateral (06/05/2020 1:54 PM EDT) Anatomical Region Laterality Modality Vascular Ultrasound 06/05/2020 2:01 PM EDT Narrative 06/05/2020 2:01 PM EDT Bilateral: B-mode imaging demonstrates normal compressibility of all venous segments examined and no evidence for the presence of thrombus. ??Doppler signals document spontaneous, phasic patterns with appropriate response to augmentation maneuvers and absence of venous reflux. Conclusions: Normal BLE venous duplex exam. Procedure: Lower extremity venous imaging was performed using real time B-mode imaging in transverse plane with and without compression. ??Visualization routinely includes the common femoral vein (CFV) with the saphenofemoral junction, femoral vein (FV), popliteal vein, calf veins and the great saphenous vein in the thigh. ??Color and spectral Doppler were used to document flow characteristics from the CFV, FV and popliteal vein to evaluate for the presence or absence of spontaneous flow and respiratory phasic variation. ??Augmentation maneuvers were performed as needed to document venous flow response and valve competence. On unilateral studies, the contralateral CFV is routinely examined. Procedure Note Terry Chauhan MD - 06/05/2020 Bilateral: B-mode imaging demonstrates normal compressibility of allvenous segments examined and no evidence for the presence of thrombus.Doppler signals document spontaneous, phasic patterns with appropriateresponse to augmentation maneuvers and absence of venous reflux. Conclusions: Normal BLE venous duplex exam. Procedure: Lower extremity venous imaging was performed using real timeB-mode imaging in transverse plane with and without compression.Visualization routinely includes the common femoral vein (CFV) with thesaphenofemoral junction, femoral vein (FV), popliteal vein, calf veins andthe great saphenous vein in the thigh. Color and spectral Doppler wereused to document flow characteristics from the CFV, FV and popliteal veinto evaluate for the presence or absence of spontaneous flow andrespiratory phasic variation. Augmentation maneuvers were performed asneeded to document venous flow response and valve competence. Onunilateral studies, the contralateral CFV is routinely examined. us María Galvez MD CV VASCULAR ORDERABLES Final R esult * (ABNORMAL) Renal Function Panel w/EGFR (06/05/2020 12:00 PM EDT) Sodium 139 133 - 146 mmol/L 06/05/2020 1:07 PM EDT [facility] Potassium 4.4 3.5 - 5.3 mmol/L 06/05/2020 1:07 PM EDT [facility] Chloride 100 98 - 110 mmol/L 06/05/2020 1:07 PM EDT [facility] CO2 28 21 - 33 mmol/L 06/05/2020 1:07 PM EDT [facility] Anion Gap 11 3 - 16 mmol/L 06/05/2020 1:07 PM EDT [facility] BUN 28(H) 7 - 25 mg/dL 06/05/2020 1:07 PM EDT [facility] Creatinine 6.92(H) 0.60 - 1.30 mg/dL 06/05/2020 1:07 PM EDT [facility] Glucose 170(H) 70 - 100 mg/dL 06/05/2020 1:07 PM EDT [facility] Calcium 9.2 8.6 - 10.3 mg/dL 06/05/2020 1:07 PM EDT [facility] Phosphorus 4.5 2.1 - 4.7 mg/dL 06/05/2020 1:07 PM EDT [facility] Albumin 3.0(L) 3.5 - 5.7 g/dL 06/05/2020 1:07 PM EDT [facility] Osmolality, Calculated 297 278 - 305 mOsm/kg 06/05/2020 1:07 PM EDT [facility] eGFR AA CKD-EPI 10 See note. 0 1:07 PM EDT [facility] Comment: As of 2015 the [...] new equation to estimate glomerular filtration rate. ??Russell Crane Man Med. 2009:150(9):604-12 eGFR NONAA CKD-EPI 9 See note. 2019 1:07 PM EDT [facility] Comment: As of 2015 the [...] new equation to estimate glomerular filtration rate. ??Russell Crane Man Med. 2009:150(9):604-12 Plasma specimen (specimen) 06/05/2020 12:00 PM EDT 06/05/2020 12:27 PM EDT us Jay Day MD LAB BLOOD ORDERABLES Final Res ult [facility] [address] * (ABNORMAL) Protime-INR (06/05/2020 12:00 PM EDT) Protime 16.8(H) 12.1 - 15.1 seconds 06/05/2020 12:51 PM EDT [facility] INR 1.3(H) 0.9 - 1.1 06/05/2020 12:51 PM EDT [facility] Comment: RECOMMENDED THERAPEUTIC RANGES USING INR : ?Stable oral anticoagulant therapy: ? 2.0 - 3.0 ?Mechanical prosthetic heart valve: ? 2.5 - 3.5 ?Recurrent acute myocardial infarction: ? 2.5 - 3.5 Plasma specimen (specimen) 06/05/2020 12:00 PM EDT 06/05/2020 12:27 PM EDT Jay Day MD LAB BLOOD ORDERABLES Final Res ult Performing Organization Address [facility] de Phone Number [facility] [address] * Magnesium (06/05/2020 12:00 PM EDT) Magnesium 2.0 1.5 - 2.5 mg/dL 06/05/2020 1:07 PM EDT [facility] Plasma specimen (specimen) 06/05/2020 12:00 PM EDT 06/05/2020 12:27 PM EDT Jay Day MD LAB BLOOD ORDERABLES Final Res ult Performing Organization Address [facility]/State/ZIP Co de Phone Number [facility] [address] [facility]. [address] * (ABNORMAL) Hepatic Function Panel (06/05/2020 12:00 PM EDT) Total Bilirubin 0.4 0.0 - 1.5 mg/dL 06/05/2020 1:07 PM EDT [facility] Bilirubin, Direct 0.09 0.00 - 0.40 mg/dL 06/05/2020 1:07 PM EDT [facility] AST 10(L) 13 - 39 U/L 06/05/2020 1:07 PM EDT [facility] ALT 7 7 - 52 U/L 06/05/2020 1:07 PM EDT [facility] Alkaline Phosphatase 60 36 - 125 U/L 06/05/2020 1:07 PM EDT [facility] Total Protein 6.0(L) 6.4 - 8.9 g/dL 06/05/2020 1:07 PM EDT [facility] Albumin 3.0(L) 3.5 - 5.7 g/dL 06/05/2020 1:07 PM EDT [facility] Bilirubin, Indirect 0.31 0.00 - 1.10 mg/dL 06/05/2020 1:07 PM EDT [facility] Plasma specimen (specimen) 06/05/2020 12:00 PM EDT 06/05/2020 12:27 PM EDT us Jay Day MD LAB BLOOD ORDERABLES Final Res ult [facility] [address] * (ABNORMAL) Differential (06/05/2020 12:00 PM EDT) Scan Result PERFORMED 06/05/2020 1:19 PM EDT [facility] Neutrophils Relative 72.5 40.0 - 80.0 % 06/05/2020 1:19 PM EDT [facility] Lymphocytes Relative 14.4(L) 15.0 - 45.0 % 06/05/2020 1:19 PM EDT [facility] Monocytes Relative 9.9 0.0 - 12.0 % 06/05/2020 1:19 PM EDT [facility] Eosinophils Relative 3.0 0.0 - 8.0 % 06/05/2020 1:19 PM EDT [facility] Basophils Relative 0.2 0.0 - 1.0 % 06/05/2020 1:19 PM EDT [facility] nRBC 0 0 - 0 /100 WBC 06/05/2020 1:19 PM EDT [facility] Neutrophils Absolute 3,843 1,500 - 7,800 /uL 06/05/2020 1:19 PM EDT [facility] Lymphocytes Absolute 763(L) 850 - 3,900 /uL 06/05/2020 1:19 PM EDT [facility] Monocytes Absolute 525 200 - 950 /uL 06/05/2020 1:19 PM EDT [facility] Eosinophils Absolute 159 15 - 500 /uL 06/05/2020 1:19 PM EDT [facility] Basophils Absolute 11 0 - 200 /uL 06/05/2020 1:19 PM EDT [facility] PLT Morphology Platelet morphology appears normal 06/05/2020 1:19 PM EDT [facility] Whole blood specimen (specimen) 06/05/2020 12:00 PM EDT 06/05/2020 12:27 PM EDT us Jay Day MD LAB BLOOD ORDERABLES Final Res ult [facility] [address] * (ABNORMAL) CBC (06/05/2020 12:00 PM EDT) WBC 5.3 3.8 - 10.8 10E3/uL 06/05/2020 12:35 PM EDT [facility] RBC 2.43(L) 4.20 - 5.80 10E6/uL 06/05/2020 12:35 PM EDT [facility] Hemoglobin 7.4(L) 13.2 - 17.1 g/dL 06/05/2020 12:35 PM EDT [facility] Hematocrit 22.1(L) 38.5 - 50.0 % 06/05/2020 12:35 PM EDT [facility] MCV 90.9 80.0 - 100.0 fL 06/05/2020 12:35 PM EDT [facility] MCH 30.6 27.0 - 33.0 pg 06/05/2020 12:35 PM EDT [facility] MCHC 33.7 32.0 - 36.0 g/dL 06/05/2020 12:35 PM EDT [facility] RDW 14.8 11.0 - 15.0 % 06/05/2020 12:35 PM EDT [facility] Platelets 281 140 - 400 10E3/uL 06/05/2020 12:35 PM EDT [facility] MPV 7.6 7.5 - 11.5 fL 06/05/2020 12:35 PM EDT [facility] Whole blood specimen (specimen) 06/05/2020 12:00 PM EDT 06/05/2020 12:27 PM EDT us Jay Day MD LAB BLOOD ORDERABLES Final Res ult Performing Organization Address City/[facility]/ZIP Co de Phone Number [facility] [address] [facility]. [address] * Vancomycin, random (06/05/2020 12:00 PM EDT) Vancomycin Random 17.5 ug/mL 06/05/2020 12:57 PM EDT [facility] Comment:Reference range not established for this test. Plasma specimen (specimen) 06/05/2020 12:00 PM EDT 06/05/2020 12:27 PM EDT us Aby Cavazos MD LAB BLOOD ORDERABLES Final Resul t [facility] [address] [facility]. [address] * (ABNORMAL) POC Glucose Monitoring Device (06/05/2020 8:39 AM EDT) POC Glucose Monitoring Device 124(H) 70 - 100 mg/dL 06/05/2020 8:40 AM EDT [facility] Blood specimen (specimen) 06/05/2020 8:39 AM EDT 06/05/2020 8:40 AM EDT us Aby Cavazos MD POINT OF CARE TEST ORDERABLES Fi nal Result Performing Organization Address [facility] de Phone Number [facility] [address] [place] [address]. [address] * (ABNORMAL) POC Glucose Monitoring Device (06/04/2020 9:27 PM EDT) POC Glucose Monitoring Device 138(H) 70 - 100 mg/dL 06/04/2020 9:28 PM EDT [facility] Blood specimen (specimen) 06/04/2020 9:27 PM EDT 06/04/2020 9:28 PM EDT Result Yuri Cavazos MD POINT OF CARE TEST ORDERABLES Fi nal Result Performing Organization Address [facility] de Phone Number [facility] [address] [place] [address]. [address] * (ABNORMAL) POC Glucose Monitoring Device (06/04/2020 1:27 PM EDT) POC Glucose Monitoring Device 148(H) 70 - 100 mg/dL 06/04/2020 1:28 PM EDT [facility] Blood specimen (specimen) 06/04/2020 1:27 PM EDT 06/04/2020 1:28 PM EDT us Aby Cavazos MD POINT OF CARE TEST ORDERABLES Fi nal Result Performing Organization Address [facility] Co de Phone Number [address] * (ABNORMAL) POC Glucose Monitoring Device (06/04/2020 8:31 AM EDT) POC Glucose Monitoring Device 177(H) 70 - 100 mg/dL 06/04/2020 8:32 AM EDT [facility] Blood specimen (specimen) 06/04/2020 8:31 AM EDT 06/04/2020 8:32 AM EDT us Aby Cavazos MD POINT OF CARE TEST ORDERABLES Fi nal Result Performing Organization Address [facility] de Phone Number [facility] [address] [facility]. [address] * (ABNORMAL) Protime-INR (06/04/2020 6:57 AM EDT) Protime 16.5(H) 12.1 - 15.1 seconds 06/04/2020 8:08 AM EDT [facility] INR 1.3(H) 0.9 - 1.1 06/04/2020 8:08 AM EDT [facility] Comment: RECOMMENDED THERAPEUTIC RANGES USING INR : ?Stable oral anticoagulant therapy: ? 2.0 - 3.0 ?Mechanical prosthetic heart valve: ? 2.5 - 3.5 ?Recurrent acute myocardial infarction: ? 2.5 - 3.5 Plasma specimen (specimen) 06/04/2020 6:57 AM EDT 06/04/2020 7:28 AM EDT us Jay Day MD LAB BLOOD ORDERABLES Final Res ult Performing Organization Address [facility] de Phone Number [facility] [address] * (ABNORMAL) Hepatic Function Panel (06/04/2020 6:57 AM EDT) Total Bilirubin 0.4 0.0 - 1.5 mg/dL 06/04/2020 7:55 AM EDT [facility] Bilirubin, Direct 0.11 0.00 - 0.40 mg/dL 06/04/2020 7:55 AM EDT [facility] AST 10(L) 13 - 39 U/L 06/04/2020 7:55 AM EDT [facility] ALT 9 7 - 52 U/L 06/04/2020 7:55 AM EDT [facility] Alkaline Phosphatase 63 36 - 125 U/L 06/04/2020 7:55 AM EDT [facility] Total Protein 6.2(L) 6.4 - 8.9 g/dL 06/04/2020 7:55 AM EDT [facility] Albumin 3.1(L) 3.5 - 5.7 g/dL 06/04/2020 7:55 AM EDT [facility] Bilirubin, Indirect 0.29 0.00 - 1.10 mg/dL 06/04/2020 7:55 AM EDT [facility] Plasma specimen (specimen) 06/04/2020 6:57 AM EDT 06/04/2020 7:28 AM EDT us Jay Day MD LAB BLOOD ORDERABLES Final Res ult Performing Organization Address City/State/[facility] Co de Phone Number [facility] [address] * (ABNORMAL) Renal Function Panel w/EGFR (06/04/2020 6:57 AM EDT) Sodium 137 133 - 146 mmol/L 06/04/2020 7:55 AM EDT [facility] Potassium 4.8 3.5 - 5.3 mmol/L 06/04/2020 7:55 AM EDT [facility] Chloride 97(L) 98 - 110 mmol/L 06/04/2020 7:55 AM EDT [facility] CO2 25 21 - 33 mmol/L 06/04/2020 7:55 AM EDT [facility] Anion Gap 15 3 - 16 mmol/L 06/04/2020 7:55 AM EDT [facility] BUN 64(H) 7 - 25 mg/dL 06/04/2020 7:55 AM EDT [facility] Creatinine 11.88(H) 0.60 - 1.30 mg/dL 06/04/2020 7:55 AM EDT [facility] Glucose 148(H) 70 - 100 mg/dL 06/04/2020 7:55 AM EDT [facility] Calcium 9.5 8.6 - 10.3 mg/dL 06/04/2020 7:55 AM EDT [facility] Phosphorus 7.6(H) 2.1 - 4.7 mg/dL 06/04/2020 7:55 AM EDT [facility] Albumin 3.1(L) 3.5 - 5.7 g/dL 06/04/2020 7:55 AM EDT [facility] Osmolality, Calculated 305 278 - 305 mOsm/kg 06/04/2020 7:55 AM EDT [facility] eGFR AA CKD-EPI 5 See note. 0 7:55 AM EDT [facility] Comment: As of 2015 the [...] new equation to estimate glomerular filtration rate. ??Russell Crane Man Med. 2009:150(9):604-12 eGFR NONAA CKD-EPI 5 See note. 06/04/2020 7:55 AM EDT [facility] Comment: As of 2015 the [...] new equation to estimate glomerular filtration rate. ??Russell Crane Man Med. 2009:150(9):604-12 Plasma specimen (specimen) 06/04/2020 6:57 AM EDT 06/04/2020 7:28 AM EDT us Jay Day MD LAB BLOOD ORDERABLES Final Res ult [facility] [address] * Magnesium (06/04/2020 6:57 AM EDT) Magnesium 2.2 1.5 - 2.5 mg/dL 06/04/2020 7:55 AM EDT [facility] Plasma specimen (specimen) 06/04/2020 6:57 AM EDT 06/04/2020 7:28 AM EDT us Jay Day MD LAB BLOOD ORDERABLES Final Res ult [facility] [address] * (ABNORMAL) Differential (06/04/2020 6:57 AM EDT) Myelocytes Relative 4.9(H) 0.0 - 0.0 % 06/04/2020 11:13 AM EDT [facility] Metamyelocytes Relative 2.9(H) 0.0 - 0.0 % 06/04/2020 11:13 AM EDT [facility] Bands Relative 4.8 0.0 - 9.0 % 06/04/2020 11:13 AM EDT [facility] Neutrophils Relative 64.1 40.0 - 80.0 % 06/04/2020 11:13 AM EDT [facility] Lymphocytes Relative 8.7(L) 15.0 - 45.0 % 06/04/2020 11:13 AM EDT [facility] Monocytes Relative 6.8 0.0 - 12.0 % 06/04/2020 11:13 AM EDT [facility] Eosinophils Relative 7.8 0.0 - 8.0 % 06/04/2020 11:13 AM EDT [facility] Basophils Relative 0.0 0.0 - 1.0 % 06/04/2020 11:13 AM EDT [facility] Neutrophils Absolute 2,820 1,500 - 7,800 /uL 06/04/2020 11:13 AM EDT [facility] Bands Absolute 211 0 - 750 /uL 06/04/2020 11:13 AM EDT [facility] Metamyelocytes Absolute 128(H) 0 - 0 /uL 06/04/2020 11:13 AM EDT [facility] Myelocytes Absolute 216(H) 0 - 0 /uL 06/04/2020 11:13 AM EDT [facility] Lymphocytes Absolute 383(L) 850 - 3,900 /uL 06/04/2020 11:13 AM EDT [facility] Monocytes Absolute 299 200 - 950 /uL 06/04/2020 11:13 AM EDT [facility] Eosinophils Absolute 343 15 - 500 /uL 06/04/2020 11:13 AM EDT [facility] Basophils Absolute 0 0 - 200 /uL 06/04/2020 11:13 AM EDT [facility] RBC Morphology Normal 06/04/2020 11:13 AM EDT [facility] PLT Morphology Platelet morphology appears normal 06/04/2020 11:13 AM EDT [facility] Whole blood specimen (specimen) 06/04/2020 6:57 AM EDT 06/04/2020 7:28 AM EDT Jay Day MD LAB BLOOD ORDERABLES Final Res ult Performing Organization Address City/State/[facility] Co de Phone Number [facility] [address] * (ABNORMAL) CBC (06/04/2020 6:57 AM EDT) WBC 4.4 3.8 - 10.8 10E3/uL 06/04/2020 7:44 AM EDT [facility] RBC 2.32(L) 4.20 - 5.80 10E6/uL 06/04/2020 7:44 AM EDT [facility] Hemoglobin 7.1(L) 13.2 - 17.1 g/dL 06/04/2020 7:44 AM EDT [facility] Hematocrit 21.2(L) 38.5 - 50.0 % 06/04/2020 7:44 AM EDT [facility] MCV 91.7 80.0 - 100.0 fL 06/04/2020 7:44 AM EDT [facility] MCH 30.5 27.0 - 33.0 pg 06/04/2020 7:44 AM EDT [facility] MCHC 33.2 32.0 - 36.0 g/dL 06/04/2020 7:44 AM EDT [facility] RDW 14.9 11.0 - 15.0 % 06/04/2020 7:44 AM EDT [facility] Platelets 272 140 - 400 10E3/uL 06/04/2020 7:44 AM EDT [facility] MPV 7.7 7.5 - 11.5 fL 06/04/2020 7:44 AM EDT [facility] Whole blood specimen (specimen) 06/04/2020 6:57 AM EDT 06/04/2020 7:28 AM EDT us Jay Day MD LAB BLOOD ORDERABLES Final Res ult Performing Organization Address City/[facility]/ZIP Co de Phone Number [facility] [address] [facility] * Vancomycin, random (06/04/2020 6:57 AM EDT) Vancomycin Random 25.2 ug/mL 06/04/2020 7:56 AM EDT [facility] Comment:Reference range not established for this test. Plasma specimen (specimen) 06/04/2020 6:57 AM EDT 06/04/2020 7:28 AM EDT us Aby Cavazos MD LAB BLOOD ORDERABLES Final Resul t Performing Organization Address [facility] Co de Phone Number [facility] [address] [facility] * (ABNORMAL) Cyclosporine level (06/04/2020 6:57 AM EDT) Cyclosporine, Blood <30(L) 100 - 400 ng/mL 06/04/2020 2:01 PM EDT [facility] Comment: Detection limit: ??30 ng/mL. ??Performed via chemiluminescent microparticle immunoassay on the [employer] i1000. Whole blood specimen (specimen) 06/04/2020 6:57 AM EDT 06/04/2020 7:28 AM EDT us María Galvez MD LAB BLOOD ORDERABLES Final Res ult Performing Organization Address City/State/[facility] Co de Phone Number [facility] [address] [place] [address], [facility] * (ABNORMAL) POC Glucose Monitoring Device (06/03/2020 4:51 PM EDT) POC Glucose Monitoring Device 166(H) 70 - 100 mg/dL 06/03/2020 4:52 PM EDT [facility] Blood specimen (specimen) 06/03/2020 4:51 PM EDT 06/03/2020 4:52 PM EDT Aby Cavazos MD POINT OF CARE TEST ORDERABLES Fi nal Result Performing Organization Address [facility]/ZIP Co de Phone Number [facility] [address] * Duplex Scan Hemodialysis Access (06/03/2020 3:54 PM EDT) Anatomical Region Laterality Modality Vascular Ultrasound 06/03/2020 5:11 PM EDT Narrative 06/03/2020 5:11 PM EDT Left: The left radiocephalic AVF appears to be patent. There appears to be a greater than 50% anastomotic stenosis as demonstrated by a PSV ratio of ??greater than 3, between the PSV at the anastomosis and the PSV 2 cm prior to anastomosis in the feeding artery. The outflow vein branches in the mid forearm approximately 11 cm cranial to the anastomosis. Conclusions: Patent left radiocephalic AVF. Greater than 50% anastomotic stenosis. Procedure: Real time B-mode imaging along with spectral and color Doppler were used to evaluate the A-V access. Visualization included the inflow artery, the arterial anastomosis, the entire length of the graft or fistula, the venous anastomosis (in grafts), and the outflow vein. Color and spectral Doppler were used to evaluate for flow characteristics including stenosis and wall disruptions. Procedure Note Terry Chauhan MD - 06/03/2020 Left: The left radiocephalic AVF appears to be patent. There appears to tania greater than 50% anastomotic stenosis as demonstrated by a PSV ratio ofgreater than 3, between the PSV at the anastomosis and the PSV 2 cm priorto anastomosis in the feeding artery. The outflow vein branches in the midforearm approximately 11 cm cranial to the anastomosis. Conclusions: Patent left radiocephalic AVF. Greater than 50% anastomoticstenosis. Procedure: Real time B-mode imaging along with spectral and color Dopplerwere used to evaluate the A-V access. Visualization included the inflowartery, the arterial anastomosis, the entire length of the graft orfistula, the venous anastomosis (in grafts), and the outflow vein. Colorand spectral Doppler were used to evaluate for flow characteristicsincluding stenosis and wall disruptions. us María Galvez MD CV VASCULAR ORDERABLES Final R esult * (ABNORMAL) POC Glucose Monitoring Device (06/03/2020 9:33 AM EDT) POC Glucose Monitoring Device 132(H) 70 - 100 mg/dL 06/03/2020 9:34 AM EDT [facility] Blood specimen (specimen) 06/03/2020 9:33 AM EDT 06/03/2020 9:34 AM EDT Aby Cavazos MD POINT OF CARE TEST ORDERABLES Fi nal Result [facility] [address] * IR CT Aspiration Fine Needle ea Addl Lesion (06/03/2020 9:10 AM EDT) Anatomical Region Laterality Modality X-Ray Angiograph y 06/03/2020 9:08 AM EDT Impressions 06/03/2020 5:14 PM EDT IMPRESSION: 1. ??Technically successful CT-guided percutaneous aspiration of posterior lumbar paraspinal fluid collection. Aspirated fluid was gaytan colored and purulent in nature and sent for routine and anaerobic cultures. ??The fluid was completely evacuated and the collection was too small for drainage catheter placement. PLAN: * ??Follow up aspirated fluid cultures. * ??If follow-up imaging is considered, MRI of the lumbar spine would be most sensitive to residual fluid. COMMUNICATION: Purulent fluid aspiration. This finding was discussed with discussed with providerDr. Jay Mary 06/03/2020,8:53 AM by telephone by Dr. Delacruz. They confirmed that they understood the findings communicated to them. Approved by Juaquin Delacruz DO on 06/03/2020 4:55 PM EDT I have personally reviewed the images and I agree with this report. Report Verified by: Heber Silva MD at 06/03/2020 5:14 PM EDT Narrative 06/03/2020 5:14 PM EDT Procedure: Percutaneous Fluid Aspiration, CT Guided (dorsal paraspinal collection) Performed on 06/03/2020 Indication: 45-year-old male, status post liver transplant, with history of L4- L5 laminectomy and discectomy at outside hospital and 04/29/2020 complicated by osteomyelitis/discitis. MRI of the lumbar spine dated 05/30/2020 demonstrated a paraspinal fluid collection. Interventional radiology consulted for image guided fluid aspiration for cultures and sensitivities. Operators: Juaquin Delacruz DO, Boarding Room Fixer Dr. Silva (VIR attending) present for the entire procedure Comparison: MRI of the lumbar spine dated 05/30/2020 Sedation: Local anesthesia using 1% lidocaine. Prophylactic medications: None. Procedure and Findings: The procedure was performed in the CT room following informed consent and a time out. The patient was in the prone position on the CT table. 1% lidocaine local anesthesia was used. ?? The posterior soft tissues along the lumbar spine was prepped and draped in the usual sterile fashion. Limited axial CT images of the lower lumbar spine were obtained to localize the posterior paraspinal fluid collection and precisely locate the skin entry site. ?? A 7 cm, 18-G needle was inserted towards the collection in incremental steps, as guided by limited axial CT images. ?? Aspiration of the catheter returned approximately 12 mL of gaytan-colored purulent fluid. A specimen was sent for culture. The cavity was aspirated dry. No drainage catheter was placed given the small size of the collection and complete evacuation of the collection. There were no immediate complications. ?? This procedure was performed under the personal supervision of Dr. Silva, who was present for the entire procedure. Procedure Note Heber Silva MD - 06/03/2020 Procedure: Percutaneous Fluid Aspiration, CT Guided (dorsal paraspinalcollection) Performed on 06/03/2020 Indication: 45-year-old male, status post liver transplant, with historyof L4-L5 laminectomy and discectomy at outside hospital and 04/29/2020complicated by osteomyelitis/discitis. MRI of the lumbar spine dated1 demonstrated a paraspinal fluid collection. Interventionalradiology consulted for image guided fluid aspiration for cultures andsensitivities. Operators: Juaquin Delacruz DO, Boarding Room Fixer Dr. Silva (VIR attending) present for the entire procedure Comparison: MRI of the lumbar spine dated 05/30/2020 Sedation: Local anesthesia using 1% lidocaine. Prophylactic medications: None. Procedure and Findings: The procedure was performed in the CT room following informed consent danelle time out. The patient was in the prone position on the CT table. 1%lidocaine local anesthesia was used. The posterior soft tissues along the lumbar spine was prepped and drapedin the usual sterile fashion. Limited axial CT images of the lower lumbarspine were obtained to localize the posterior paraspinal fluid collectionand precisely locate the skin entry site. A 7 cm, 18-G needle was inserted towards the collection in incrementalsteps, as guided by limited axial CT images. Aspiration of the catheter returned approximately 12 mL of gaytan-coloredpurulent fluid. A specimen was sent for culture. The cavity was aspirateddry. No drainage catheter was placed given the small size of thecollection and complete evacuation of the collection. There were no immediate complications. This procedure was performed under the personal supervision of , who was present for the entire procedure. IMPRESSION: 1. Technically successful CT-guided percutaneous aspiration of posteriorlumbar paraspinal fluid collection. Aspirated fluid was gaytan colored andpurulent in nature and sent for routine and anaerobic cultures. The fluidwas completely evacuated and the collection was too small for drainagecatheter placement. PLAN: * Follow up aspirated fluid cultures. * If follow-up imaging is considered, MRI of the lumbar spine would bemost sensitive to residual fluid. COMMUNICATION: Purulent fluid aspiration. This finding was discussed withdiscussed with providerDr. Jay Genao Purpleteam 06/03/2020,8:53AM by telephone by Dr. Delacruz. They confirmed that they understood thefindings communicated to them. Approved by Juaquin Delacruz DO on 06/03/2020 4:55 PM EDT I have personally reviewed the images and I agree with this report. Report Verified by: Heber Silva MD at 06/03/2020 5:14 PM EDT María Galvez MD IMG IR ORDERABLES Final Result * Anaerobic culture (06/03/2020 8:31 AM EDT) Culture Result No Anaerobes Isolated in 5 Days [facility] Fluid specimen (specimen) STRUCTURE OF BACK OF TRUNK / Unknown 06/03/2020 8:31 AM EDT 06/03/2020 10:47 AM EDT Narrative [facility] - 06/08/2020 2:30 PM EDT Paraspinal fluid collection Thioglycolate broth not utilized due to reagent shortage. Heber Silva MD MICROBIOLOGY - GENERAL ORDERABLES Final Result Performing Organization Address City/[facility]/ZIP Co de Phone Number [facility] [address] [place] [address] * Routine Culture plus Stain (06/03/2020 8:31 AM EDT) Gram Stain Result Many Polymorphonuclear Leukocytes Seen [facility] Gram Stain Result Rare Gram Positive Cocci In Pairs; [facility] Culture Result No Growth After 3 Days [facility] Fluid specimen (specimen) STRUCTURE OF BACK OF TRUNK / Unknown 06/03/2020 8:31 AM EDT 06/03/2020 10:47 AM EDT [facility] - 06/06/2020 8:17 AM EDT Paraspinal fluid collection Thioglycolate broth not utilized due to reagent shortage. Heber Silva MD MICROBIOLOGY - GENERAL ORDERABLES Final Result [facility] [address] * (ABNORMAL) CBC (06/03/2020 7:21 AM EDT) WBC 6.0 3.8 - 10.8 10E3/uL 06/03/2020 8:08 AM EDT [facility] RBC 2.51(L) 4.20 - 5.80 10E6/uL 06/03/2020 8:08 AM EDT [facility] Hemoglobin 7.6(L) 13.2 - 17.1 g/dL 06/03/2020 8:08 AM EDT [facility] Hematocrit 23.1(L) 38.5 - 50.0 % 06/03/2020 8:08 AM EDT [facility] MCV 92.2 80.0 - 100.0 fL 06/03/2020 8:08 AM EDT [facility] MCH 30.4 27.0 - 33.0 pg 06/03/2020 8:08 AM EDT [facility] MCHC 33.0 32.0 - 36.0 g/dL 06/03/2020 8:08 AM EDT [facility] RDW 15.1(H) 11.0 - 15.0 % 06/03/2020 8:08 AM EDT [facility] Platelets 335 140 - 400 10E3/uL 06/03/2020 8:08 AM EDT [facility] [place] [facility] MPV 7.6 7.5 - 11.5 fL 06/03/2020 8:08 AM EDT [facility] Whole blood specimen (specimen) 06/03/2020 7:21 AM EDT 06/03/2020 7:41 AM EDT us María Galvez MD LAB BLOOD ORDERABLES Final Res ult Performing Organization Address City/State/[facility] Co de Phone Number [facility] [address] * Vancomycin, random (06/03/2020 5:04 AM EDT) Vancomycin Random 29.8 ug/mL 06/03/2020 6:28 AM EDT [facility] Comment:Reference range not established for this test. Plasma specimen (specimen) 06/03/2020 5:04 AM EDT 06/03/2020 5:53 AM EDT us Aby Cavazos MD LAB BLOOD ORDERABLES Final Resul t [facility] [address] [facility]. [address] * Magnesium, AM (06/03/2020 5:04 AM EDT) Magnesium 2.0 1.5 - 2.5 mg/dL 06/03/2020 6:15 AM EDT [facility] Plasma specimen (specimen) 06/03/2020 5:04 AM EDT 06/03/2020 5:49 AM EDT us María Galvez MD LAB BLOOD ORDERABLES Final Res ult Performing Organization Address [facility] Co de Phone Number [facility] [address] [facility] * (ABNORMAL) Renal Function Panel w/EGFR (06/03/2020 5:04 AM EDT) Sodium 138 133 - 146 mmol/L 06/03/2020 6:15 AM EDT [facility] Potassium 4.7 3.5 - 5.3 mmol/L 06/03/2020 6:15 AM EDT [facility] Chloride 98 98 - 110 mmol/L 06/03/2020 6:15 AM EDT [facility] CO2 26 21 - 33 mmol/L 06/03/2020 6:15 AM EDT [facility] Anion Gap 14 3 - 16 mmol/L 06/03/2020 6:15 AM EDT [facility] BUN 56(H) 7 - 25 mg/dL 06/03/2020 6:15 AM EDT [facility] Creatinine 11.03(H) 0.60 - 1.30 mg/dL 06/03/2020 6:15 AM EDT [facility] Glucose 113(H) 70 - 100 mg/dL 06/03/2020 6:15 AM EDT [facility] Calcium 9.7 8.6 - 10.3 mg/dL 06/03/2020 6:15 AM EDT [facility] Phosphorus 6.3(H) 2.1 - 4.7 mg/dL 06/03/2020 6:15 AM EDT [facility] Albumin 3.5 3.5 - 5.7 g/dL 06/03/2020 6:15 AM EDT [facility] Osmolality, Calculated 302 278 - 305 mOsm/kg 06/03/2020 6:15 AM EDT [facility] eGFR AA CKD-EPI 6 See note. 0 6:15 AM EDT [facility] Comment: As of 2015 the [...] new equation to estimate glomerular filtration rate. ??Russell Crane Man Med. 2009:150(9):604-12 eGFR NONAA CKD-EPI 5 See note. 06/03/2020 6:15 AM EDT [facility] Comment: As of 2015 the [...] new equation to estimate glomerular filtration rate. ??Russell Crane Man Med. 2009:150(9):604-12 Plasma specimen (specimen) 06/03/2020 5:04 AM EDT 06/03/2020 5:49 AM EDT us María Galvez MD LAB BLOOD ORDERABLES Final Res ult [facility] [address] [place] [address], [facility] * (ABNORMAL) POC Glucose Monitoring Device (06/02/2020 9:49 PM EDT) POC Glucose Monitoring Device 139(H) 70 - 100 mg/dL 06/02/2020 9:49 PM EDT [facility] Blood specimen (specimen) 06/02/2020 9:49 PM EDT 06/02/2020 9:49 PM EDT us Aby Cavazos MD POINT OF CARE TEST ORDERABLES Fi nal Result [facility] [address] [facility] * (ABNORMAL) POC Glucose Monitoring Device (06/02/2020 6:50 PM EDT) POC Glucose Monitoring Device 158(H) 70 - 100 mg/dL 06/02/2020 6:51 PM EDT [facility] Blood specimen (specimen) 06/02/2020 6:50 PM EDT 06/02/2020 6:51 PM EDT us Aby Cavazos MD POINT OF CARE TEST ORDERABLES Fi nal Result Performing Organization Address [facility] Co de Phone Number [facility] [address] [facility] * (ABNORMAL) POC Glucose Monitoring Device (06/02/2020 1:05 PM EDT) POC Glucose Monitoring Device 199(H) 70 - 100 mg/dL 06/02/2020 1:06 PM EDT [facility] Blood specimen (specimen) 06/02/2020 1:05 PM EDT 06/02/2020 1:06 PM EDT us Aby Cavazos MD POINT OF CARE TEST ORDERABLES Fi nal Result Performing Organization Address City/[facility] Co de Phone Number [facility] [address] [place] [address]. [address] * IR Angio Dialysis Circuit (06/02/2020 9:00 AM EDT) Anatomical Region Laterality Modality X-Ray Angiograph y 06/02/2020 8:32 AM EDT Impressions 06/03/2020 10:32 AM EDT IMPRESSION: 1. ??No stenosis of left arm hemodialysis fistula or arterial-venous (AV) anastomosis. ?? 2. ??No central venous obstruction. 3. Hypertrophied veins superficial to the cephalic vein in the forearm which may be the etiology of ecchymosis in the forearm is traversed during hemodialysis access. 4. If the fistula continues to have issues with access, patient may require extensive maturation evaluation and intervention due to the poor cephalic vein outflow. PLAN: The AV fistula is ready for immediate use. The area for safe hemodialysis access was demarcated on the left forearm. I have personally reviewed the images and I agree with this report. Report Verified by: Liberty Winchester MD at 06/03/2020 10:32 AM EDT Narrative 06/03/2020 10:32 AM EDT Procedure: Hemodialysis fistulogram Performed on 06/02/2020 Indications: 45 y.o.malewith history of ESRD on HD at home via a LUE AVF and liver transplant in 2018 admitted for discitis/osteomyelitis. Patient went for unsuccessful dialysis today with reported clots coming from AVF. IR Consulted for fistulogram with possible declot. Last successful dialysis 05/29/20. Comparisons: None Operators: Dr. Winchester (VIR attending) was present during the entire procedure. Dr. Kaur (VIR Fellow) Procedure and Findings: The procedure was performed in the VIR suite following informed consent and a time out. ??The patient received 36 minutes of IV moderate sedation under the supervision of the radiologist. ??1% lidocaine local anesthesia was used. ??The left arm was prepped and draped in the usual sterile fashion. ?? There was a palpable thrill and pulsatile flow over the left arm hemodialysis fistula initially. ??Ultrasound was used to evaluate the arm hemodialysis fistula and images were stored in a permanent PACS archive. Ultrasound evaluation demonstrated a widely patent arterial venous anastomosis and patent juxtaanastomotic cephalic vein. Using ultrasound guidance, the left arm hemodialysis fistula was accessed with a 21-G micropuncture needle directed towards the central veins. ??A 0.018 inch guidewire was placed through the micropuncture needle and the needle was exchanged for a 4-F stiff micropuncture catheter. ??Digital subtraction angiograms (DSA) were obtained centered over this point of the fistula and the central veins. ??DSA of the feeding artery and the arterial end of the fistula was performed using transient manual occlusion of the fistula. ??There was no stenosis of the fistula or AV anastomosis. ??The central veins were patent. The cephalic vein in the forearm drains into the antecubital vein with preferential flow into the brachial veins. In the forearm, there are hypertrophied veins located superficial to the cephalic vein. The central portion of the cephalic vein appears to be atrophic. The catheter was removed and hemostasis was achieved using manual compression. ??The catheter site was dressed in the usual fashion. ?? Ultrasound evaluation was again performed to demarcate the safe zone of hemodialysis access (image 5). There were no post procedure changes in the thrill and flow over the fistula. ??There were no immediate complications. Total fluoroscopy time was 0.8 minutes, with an estimated dose of 68.37mGy. ?? Procedure Note Liberty Winchester MD - 06/03/2020 Procedure: Hemodialysis fistulogram Performed on 06/02/2020 Indications: 45 y.o.malewith history of ESRD on HD at home via a LUE AVFand liver transplant in 2018 admitted for discitis/osteomyelitis. Patientwent for unsuccessful dialysis today with reported clots coming from AVF.IR Consulted for fistulogram with possible declot. Last successfuldialysis 05/29/20. Comparisons: None Operators: Dr. Winchester (VIR attending) was present during the entire procedure. Dr. Kaur (VIR Fellow) Procedure and Findings: The procedure was performed in the VIR suite following informed consentand a time out. The patient received 36 minutes of IV moderate sedationunder the supervision of the radiologist. 1% lidocaine local anesthesiawas used. The left arm was prepped and draped in the usual sterilefashion. There was a palpable thrill and pulsatile flow over the left armhemodialysis fistula initially. Ultrasound was used to evaluate the armhemodialysis fistula and images were stored in a permanent PACS archive.Ultrasound evaluation demonstrated a widely patent arterial venousanastomosis and patent juxtaanastomotic cephalic vein. Using ultrasound guidance, the left arm hemodialysis fistula was accessedwith a 21-G micropuncture needle directed towards the central veins. A0.018 inch guidewire was placed through the micropuncture needle and theneedle was exchanged for a 4-F stiff micropuncture catheter. Digitalsubtraction angiograms (DSA) were obtained centered over this point of thefistula and the central veins. DSA of the feeding artery and the arterialend of the fistula was performed using transient manual occlusion of thefistula. There was no stenosis of the fistula or AV anastomosis. Thecentral veins were patent. The cephalic vein in the forearm drains intothe antecubital vein with preferential flow into the brachial veins. Inthe forearm, there are hypertrophied veins located superficial to thecephalic vein. The central portion of the cephalic vein appears to beatrophic. The catheter was removed and hemostasis was achieved using manualcompression. The catheter site was dressed in the usual fashion. Ultrasound evaluation was again performed to demarcate the safe zone ofhemodialysis access (image 5). There were no post procedure changes in the thrill and flow over thefistula. There were no immediate complications. Total fluoroscopy timewas 0.8 minutes, with an estimated dose of 68.37mGy. IMPRESSION: 1. No stenosis of left arm hemodialysis fistula or arterial-venous (AV)anastomosis. 2. No central venous obstruction. 3. Hypertrophied veins superficial to the cephalic vein in the forearmwhich may be the etiology of ecchymosis in the forearm is traversed duringhemodialysis access. 4. If the fistula continues to have issues with access, patient mayrequire extensive maturation evaluation and intervention due to the poorcephalic vein outflow. PLAN: The AV fistula is ready for immediate use. The area for safe hemodialysisaccess was demarcated on the left forearm. I have personally reviewed the images and I agree with this report. Report Verified by: Liberty Winchester MD at 06/03/2020 10:32 AM EDT Kimber Alcantar MD IMG IR ORDERABLES Final Result * (ABNORMAL) Cyclosporine level (06/02/2020 4:07 AM EDT) Cyclosporine, Blood 38(L) 100 - 400 ng/mL 06/02/2020 1:31 PM EDT [facility] Comment: Detection limit: ??30 ng/mL. ??Performed via chemiluminescent microparticle immunoassay on the [employer] i1000. Whole blood specimen (specimen) 06/02/2020 4:07 AM EDT 06/02/2020 4:33 AM EDT María Galvez MD LAB BLOOD ORDERABLES Final Res ult [facility] [address] * (ABNORMAL) Ferritin (06/02/2020 4:07 AM EDT) Ferritin 1,132.0(H) 23.9 - 336.2 ng/mL 06/02/2020 5:20 AM EDT [facility] Serum specimen (specimen) 06/02/2020 4:07 AM EDT 06/02/2020 4:33 AM EDT Kimber Alcantar MD LAB BLOOD ORDERABLES Final Res ult Performing Organization Address City/[facility] Co de Phone Number [facility] [address] [facility] * (ABNORMAL) Iron Studies (Iron + TIBC) (06/02/2020 4:07 AM EDT) Iron 19(L) 50 - 212 ug/dL 06/02/2020 4:58 AM EDT [facility] % Iron Saturation 11.0(L) 15.0 - 55.0 % 06/02/2020 4:58 AM EDT [facility] TIBC 172(L) 261 - 462 ug/dL 06/02/2020 4:58 AM EDT [facility] Serum specimen (specimen) 06/02/2020 4:07 AM EDT 06/02/2020 4:33 AM EDT Kimber Alcantar MD LAB BLOOD ORDERABLES Final Res ult [facility] [address] * (ABNORMAL) Renal Function Panel w/EGFR (06/02/2020 4:07 AM EDT) Sodium 137 133 - 146 mmol/L 06/02/2020 5:05 AM EDT [facility] Potassium 4.8 3.5 - 5.3 mmol/L 06/02[facility]2020 [facility] Chloride 98 98 - 110 mmol/L 06/02/2020 5:05 AM EDT [facility] CO2 23 21 - 33 mmol/L 06/02/2020 5:05 AM [facility] Anion Gap 16 3 - 16 mmol/L 06/02/2020 5:[facility] BUN 71(H) 7 - 25 mg/dL 06/02/2020 5:05 AM [facility] Creatinine 12.81(H) 0.60 - 1.30 mg/dL 06/02/2020 5:05 AM [facility] Glucose 132(H) 70 - 100 mg/dL 06/02/2020 5:05 AM [facility] Calcium 9.6 8.6 - 10.3 mg/dL 06/02/2020 5:05 AM [facility] Phosphorus 7.4(H) 2.1 - 4.7 mg/dL 06/02/2020 5:05 AM [facility] Albumin 3.4(L) 3.5 - 5.7 g/dL 06/02/2020 5:05 AM [facility] Osmolality, Calculated 307(H) 278 - 305 mOsm/kg 06/02/2020 5:05 AM [facility] eGFR AA CKD-EPI 5 See note. 0 5:05 AM [facility] Comment: As of 2015 the [...] new equation to estimate glomerular filtration rate. ??Russell Crane Man Med. 2009:150(9):604-12 eGFR NONAA CKD-EPI 4 See note. 06/02/2020 5:05 AM [facility] Comment: As of 2015 the [...] new equation to estimate glomerular filtration rate. ??Russell Crane Man Med. 2009:150(9):604-12 Plasma specimen (specimen) 06/02/2020 4:07 AM EDT 06/02/2020 4:33 AM EDT us Jay Day MD LAB BLOOD ORDERABLES Final Res ult [facility] [address] * (ABNORMAL) Protime-INR (06/02/2020 4:07 AM EDT) Protime 16.3(H) 12.1 - 15.1 seconds 06/02/2020 4:52 AM EDT [facility] INR 1.3(H) 0.9 - 1.1 06/02/2020 4:52 AM EDT [facility] Comment: RECOMMENDED THERAPEUTIC RANGES USING INR : ?Stable oral anticoagulant therapy: ? 2.0 - 3.0 ?Mechanical prosthetic heart valve: ? 2.5 - 3.5 ?Recurrent acute myocardial infarction: ? 2.5 - 3.5 Plasma specimen (specimen) 06/02/2020 4:07 AM EDT 06/02/2020 4:33 AM EDT Jay Day MD LAB BLOOD ORDERABLES Final Res ult [facility] [address] [facility] * Magnesium (06/02/2020 4:07 AM EDT) Magnesium 2.0 1.5 - 2.5 mg/dL 06/02/2020 5:05 AM EDT [facility] Plasma specimen (specimen) 06/02/2020 4:07 AM EDT 06/02/2020 4:33 AM EDT Jay Day MD LAB BLOOD ORDERABLES Final Res ult Performing Organization Address [facility] Co de Phone Number [facility] [address] [facility] * (ABNORMAL) Hepatic Function Panel (06/02/2020 4:07 AM EDT) Total Bilirubin 0.4 0.0 - 1.5 mg/dL 06/02/2020 5:05 AM EDT [facility] Bilirubin, Direct 0.11 0.00 - 0.40 mg/dL 06/02/2020 5:05 AM EDT [facility] AST 13 13 - 39 U/L 06/02/2020 5:05 AM EDT [facility] ALT 10 7 - 52 U/L 06/02/2020 5:05 AM EDT [facility] Alkaline Phosphatase 77 36 - 125 U/L 06/02/2020 5:05 AM EDT [facility] Total Protein 6.4 6.4 - 8.9 g/dL 06/02/2020 5:05 AM EDT [facility] Albumin 3.4(L) 3.5 - 5.7 g/dL 06/02/2020 5:05 AM EDT [facility] Bilirubin, Indirect 0.29 0.00 - 1.10 mg/dL 06/02/2020 5:05 AM EDT [facility] Plasma specimen (specimen) 06/02/2020 4:07 AM EDT 06/02/2020 4:33 AM EDT us Jay Day MD LAB BLOOD ORDERABLES Final Res ult [facility] [address] [place] [address], [facility] * (ABNORMAL) Differential (06/02/2020 4:07 AM EDT) Myelocytes Relative 3.9(H) 0.0 - 0.0 % 06/02/2020 6:47 AM EDT [facility] Metamyelocytes Relative 3.9(H) 0.0 - 0.0 % 06/02/2020 6:47 AM EDT [facility] Neutrophils Relative 72.8 40.0 - 80.0 % 06/02/2020 6:47 AM EDT [facility] Lymphocytes Relative 12.6(L) 15.0 - 45.0 % 06/02/2020 6:47 AM EDT [facility] Monocytes Relative 4.9 0.0 - 12.0 % 06/02/2020 6:47 AM EDT [facility] Eosinophils Relative 1.9 0.0 - 8.0 % 06/02/2020 6:47 AM EDT [facility] Basophils Relative 0.0 0.0 - 1.0 % 06/02/2020 6:47 AM EDT [facility] Neutrophils Absolute 4,586 1,500 - 7,800 /uL 06/02/2020 6:47 AM EDT [facility] Metamyelocytes Absolute 246(H) 0 - 0 /uL 06/02/2020 6:47 AM EDT [facility] Myelocytes Absolute 246(H) 0 - 0 /uL 06/02/2020 6:47 AM EDT [facility] Lymphocytes Absolute 794(L) 850 - 3,900 /uL 06/02/2020 6:47 AM EDT [facility] Monocytes Absolute 309 200 - 950 /uL 06/02/2020 6:47 AM EDT [facility] Eosinophils Absolute 120 15 - 500 /uL 06/02/2020 6:47 AM EDT [facility] Basophils Absolute 0 0 - 200 /uL 06/02/2020 6:47 AM EDT [facility] RBC Morphology Normal 06/02/2020 6:47 AM EDT [facility] PLT Morphology Platelet morphology appears normal 06/02/2020 6:47 AM EDT [facility] Whole blood specimen (specimen) 06/02/2020 4:07 AM EDT 06/02/2020 4:33 AM EDT Jay Day MD LAB BLOOD ORDERABLES Final Res ult Performing Organization Address City/State/[facility] Co de Phone Number [facility] [address] [place], [place] [address] * (ABNORMAL) CBC (06/02/2020 4:07 AM EDT) WBC 6.3 3.8 - 10.8 10E3/uL 06/02/2020 5:15 AM EDT [facility] RBC 2.35(L) 4.20 - 5.80 10E6/uL 06/02/2020 5:15 AM EDT [facility] Hemoglobin 7.1(L) 13.2 - 17.1 g/dL 06/02/2020 5:15 AM EDT [facility] Hematocrit 21.3(L) 38.5 - 50.0 % 06/02/2020 5:15 AM EDT [facility] MCV 90.5 80.0 - 100.0 fL 06/02/2020 5:15 AM EDT [facility] MCH 30.4 27.0 - 33.0 pg 06/02/2020 5:15 AM EDT [facility] MCHC 33.6 32.0 - 36.0 g/dL 06/02/2020 5:15 AM EDT [facility] RDW 14.5 11.0 - 15.0 % 06/02/2020 5:15 AM EDT [facility] Platelets 325 140 - 400 10E3/uL 06/02/2020 5:15 AM EDT [facility] MPV 7.6 7.5 - 11.5 fL 06/02/2020 5:15 AM EDT [facility] Whole blood specimen (specimen) 06/02/2020 4:07 AM EDT 06/02/2020 4:33 AM EDT Jay Day MD LAB BLOOD ORDERABLES Final Res ult Performing Organization Address City/State/[facility] Co de Phone Number [facility] [address] [facility]. [address] * Vancomycin, random (06/02/2020 4:07 AM EDT) Vancomycin Random 16.1 ug/mL 06/02/2020 5:06 AM EDT [facility] Comment:Reference range not established for this test. Plasma specimen (specimen) 06/02/2020 4:07 AM EDT 06/02/2020 4:33 AM EDT us Aby Cavazos MD LAB BLOOD ORDERABLES Final Resul t Performing Organization Address [facility] de Phone Number [facility] [address] [facility] * (ABNORMAL) POC Glucose Monitoring Device (06/01/2020 5:50 PM EDT) Pathologist [facility] POC Glucose Monitoring Device 153(H) 70 - 100 mg/dL 06/01/2020 5:51 PM EDT [facility] Blood specimen (specimen) 06/01/2020 5:50 PM EDT 06/01/2020 5:50 PM EDT us Aby Cavazos MD POINT OF CARE TEST ORDERABLES Fi nal Result Performing Organization Address [facility] de Phone Number [facility] [address] [facility] * X-ray Comparison Images (06/01/2020 5:38 PM EDT) Narrative EXTERNAL - 06/01/2020 5:38 PM EDT Images associated with this accession number were presented to us for comparison to an examination performed here. us María Galvez MD IMG DIAGNOSTIC IMAGING ORDERAB LES Final Result Performing Organization Address [facility] Co de Phone Number EXTERNAL * Echo 2D Complete (TTE) (06/01/2020 2:49 PM EDT) 06/01/2020 2:22 PM EDT Narrative RADNET - 06/01/2020 3:06 PM EDT ?* [facility]* ?[address] ? [place] [address] ? [phone] Transthoracic Echocardiography Patient: ?Leocnio Rollins MR #: ? [id number] Account: Study Date: 06/01/2020 Gender: ? M Age: ?45 : ?1975 Room: ? [facility] PERFORMING ?? Thania Hamilton MD COMMUNITY CASE MANAGER ??ADRIANO Duke ORDERING ? María Galvez REFERRING ?María Galvez ATTENDING ?Aby Cavazos ADMITTING ?Aby Cavazos Procedure:ECHO 2D COMPLETE (TTE) ?Order: Indications: ?Endocarditis (I38). Risk factors: ??Hypertension. Diabetes mellitus. JC. Study data: ??Height: 67in. 170.2cm. Weight: 277.4lb. 126.1kg. Comparison was made to the study of 07/22/2019. ??Study status: Routine. ??Procedure: ??Transthoracic echocardiography. Image quality was suboptimal. The study was technically limited due to poor patient compliance. Scanning was performed from the parasternal, apical, and subcostal acoustic windows. ?Transthoracic echocardiography. ??M-mode, complete 2D, complete spectral Doppler, and color Doppler. ??Birthdate: ??Patient birthdate: 1975. Age: ??Patient is 45yr old. ??Sex: ?? gender: male. ??Body mass index: ??BMI: 43.5kg/m^2. ??Body surface area: ?BSA: 2.33m^2. Blood pressure: ? 166/94 ??Patient status: ??Inpatient. ??Study date: ??Study date: 06/01/2020. Study time: 02:22 PM. ??Location: Echo laboratory. Study Conclusions - Left ventricle: The cavity size is normal. Wall thickness was increased in a pattern of mild LVH. ??Systolic function was normal. The estimated ejection fraction was in the range of 55% to 60%. Wall ??motion was normal; there were no regional wall motion abnormalities. The study is not technically ??sufficient to allow evaluation of LV diastolic function due to tachycardia. - Ventricular septum: Abnormal septal motion. Septal motion is dyssynergic. - Aortic valve: Poorly visualized. Mild thickening. Mild calcification. - Left atrium: The atrium is mildly dilated. - Right ventricle: The cavity appears dilated in some views. Systolic function was normal. TAPSE: ??2.1cm. - Right atrium: The atrium is dilated. - Tricuspid valve: Poorly visualized. - Pulmonic valve: Poorly visualized. - Pulmonary arteries: Systolic pressure could not be accurately estimated. - Inferior vena cava: Poorly visualized. Cardiac Anatomy Left ventricle: - The cavity size is normal. Wall thickness was increased in a pattern of mild LVH. Systolic ??function was normal. The estimated ejection fraction was in the range of 55% to 60%. Wall motion ??was normal; there were no regional wall motion abnormalities. - Wall motion score: 1.00. - The study is not technically sufficient to allow evaluation of LV diastolic function due to ??tachycardia. Aorta: ?? Aortic root: - The aortic root is normal in size. Aortic valve: - Poorly visualized. Mild thickening. Mild calcification. Doppler: - Transvalvular velocity is within the normal range. There is no stenosis. No regurgitation. Mitral valve: - Structurally normal valve. Mobility was not restricted. Doppler: - Transvalvular velocity is within the normal range. There is no evidence for stenosis. No ??regurgitation. Left atrium: - The atrium is mildly dilated. Pulmonary artery: - Systolic pressure could not be accurately estimated. Systemic veins: Inferior vena cava: Poorly visualized. Right ventricle: - The cavity appears dilated in some views. Systolic function was normal. TAPSE: 2.1cm. Ventricular septum: - Abnormal septal motion. Septal motion is dyssynergic. Pulmonic valve: - Poorly visualized. Doppler: - Transvalvular velocity is within the normal range. There is no evidence for stenosis. No ??regurgitation. Tricuspid valve: - Poorly visualized. Doppler: - Transvalvular velocity is within the normal range. No regurgitation. Right atrium: - The atrium is dilated. Pericardium: - There is no pericardial effusion. Systemic veins: Inferior vena cava: - Poorly visualized. Measurements Left ventricle ?Value ?07/22/2019 Ref ESD major ax, A4C ? 7.0 ?? cm ? 7.4 ? ESD/bsa major ax, A4C ? 3.0 ?? cm/m^2 ?? 2.8 ? GINA minor ax, A4C ? 7.0 ?? cm ? 7.4 ? GINA/bsa minor ax, A4C ? 3.0 ?? cm/m^2 ?? 2.8 ? RACHEL, A4C ?51.5 ??cm^2 ? 39.1 ? MINERVA, A4C ?25.4 ??cm^2 ? 22.5 ? FAC, A4C ?51 ?% ?42 ? GINA major ax, A2C ? 10.1 ??cm ? 8.3 ? GINA/bsa major ax, A2C ? 4.3 ?? cm/m^2 ?? 3.2 ? EDV, 1-p A4C ?(H) ?? 215 ?? ml ? 148 ?69 - 185 ESV, 1-p A4C ?(N) ?? 77 ?ml ? 57 ? 22 - 78 EF, 1-p A4C ? (N) ?? 64 ?% ?61 ? 46 - 74 SV, 1-p A4C ? 137 ?? ml ? 151 ? EDV/bsa, 1-p A4C ?(N) ?? 92 ?ml/m^2 ?? 57 ? 37 - 93 ESV/bsa, 1-p A4C ?(N) ?? 33 ?ml/m^2 ?? 22 ? 12 - 40 SV/bsa, 1-p A4C ? 59 ?ml/m^2 ?? 58 ? SV/bsa, 2-p ? 58.8 ??ml/m^2 ?? 36.4 ? E', lat russell, TDI ?(N) ?? 17.9 ??cm/sec ?? 9.1 ?>=10.0 E/e', lat russell, TDI ?8 ?13 ? S', lat russell, TDI ?10.9 ??cm/sec ?? 7.1 ? E', med russell, TDI ?(N) ?? 12.0 ??cm/sec ?? 7.0 ?>=7.0 E/e', med russell, TDI ?12 ? 17 ? S', med russell, TDI ?10.6 ??cm/sec ?? 6.6 ? E', avg, TDI ?15.0 ??cm/sec ?? 8.1 ? E/e', avg, TDI ?(N) ?? 10 ? 15 ? <=14 LVOT ?Value ?07/22/2019 Ref Peak cesilia, S ? 1.38 ??m/sec ?1.12 ? Peak grad, S ?8 ? mm Hg ?5 ? Right ventricle ? Value ?07/22/2019 Ref GINA, LAX ?5.8 ?? cm ? 4.7 ? TAPSE, MM ? (N) ?? 2.1 ?? cm ? 3.1 ?1.7 - 3.1 S' lateral ?(N) ?? 13.2 ??cm/sec ?? 14.5 ? 6.0 - 13.4 RVOT ?Value ?07/22/2019 Ref Peak v, S ? 1.18 ??m/sec ?0.58 ? Peak grad, S ?6 ? mm Hg ? Left atrium ? Value ?07/22/2019 Ref AP dim, ES ?(H) ?? 4.4 ?? cm ? 4.6 ?3.0 - 4.0 AP dim index ?(N) ?? 1.9 ?? cm/m^2 ?? 1.8 ?1.5 - 2.3 Area ES, A4C ?(H) ?? 23 ?cm^2 ? 26 ? <=20 Area ES, A2C ?25 ?cm^2 ? 25 ? SI dim, A2C ? 5.4 ?? cm ? 5.6 ? Vol, ES, 1-p A4C ?(H) ?? 68 ?ml ? 84 ? 18 - 58 Vol/bsa, ES, 1-p A4C ??(N) ?? 29 ?ml/m^2 ?? 32 ? 12 - 37 Vol, ES, 1-p A2C ?(H) ?? 87 ?ml ? 89 ? 18 - 58 Vol/bsa, ES, 1-p A2C ??(N) ?? 37 ?ml/m^2 ?? 34 ? 11 - 43 Vol, ES, 2-p ?80 ?ml ? Vol/bsa, ES, 2-p ?(N) ?? 34 ?ml/m^2 ?? 16 - 34 Right atrium ?Value ?07/22/2019 Ref Area, ES, A4C ? (H) ?? 22 ?cm^2 ? 21 ? 10 - 18 Aortic valve ?Value ?07/22/2019 Ref Peak v, S ? 2.2 ?? m/sec ?1.8 ? Mean v, S ? 1.47 ??m/sec ? Mean grad, S ?11 ?mm Hg ? Peak grad, S ?20 ?mm Hg ?13 ? LVOT/AV, Vpeak ratio ?0.62 ? 0.63 ? Mitral valve ?Value ?07/22/2019 Ref Peak E ?1.49 ??m/sec ?1.18 ? Decel slope ? 731 ?? cm/s^2 ?? 5.03 ? Decel time ?204 ?? ms ? 235 ? PHT ? 60 ?ms ? 69 ? Peak grad, D ?9 ? mm Hg ?6 ? MVA, PHT ?3.7 ?? cm^2 ? 3.2 ? MVA/bsa, PHT ?1.58 ??cm^2/m^2 1.22 ? Pulmonic valve ?Value ?07/22/2019 Ref Peak v, S ? 1.6 ?? m/sec ?1.1 ? Aortic root ? Value ?07/22/2019 Ref Root diam ? (N) ?? 2.9 ?? cm ? 2.8 ?<4.4 Legend: (L) ??and ??(H) ??dewey values outside specified reference range. (N) ??moran values inside specified reference range. Reviewed and confirmed by Thania Hamilton MD [id number] Procedure Note Thania Hamilton MD - 06/01/2020 * [facility]* [address] [place] [address] Transthoracic Echocardiography Patient: Leoncio Rollins MR #: [id number] Account: Study Date: 06/01/2020 Gender: M Age: 45 : 1975 Room: [facility] Thania Hamilton MD COMMUNITY CASE MANAGER Albertina Roth, [facility] ORDERING María Galvez REFERRING María Galvez ATTENDING Aby Cavazos ADMITTING Aby Cavazos Procedure:ECHO 2D COMPLETE (TTE) Order: Indications: Endocarditis (I38). Risk factors: Hypertension. Diabetes mellitus. JC. Study data: Height: 67in. 170.2cm. Weight: 277.4lb. 126.1kg. Comparison was made to the study of 07/22/2019. Study status: Routine. Procedure: Transthoracic echocardiography. Image quality was suboptimal. The study was technically limited due to poor patient compliance. Scanning was performed from the parasternal, apical, and subcostal acoustic windows. Transthoracic echocardiography. M-mode, complete 2D, complete spectral Doppler, and color Doppler. Birthdate: Patient birthdate: 1975. Age: Patient is 45yr old. Sex: gender: male. Body mass index: BMI: 43.5kg/m^2. Body surface area: BSA: 2.33m^2. Blood pressure: 166/94 Patient status: Inpatient. Study date: Study date: 06/01/2020. Study time: 02:22 PM. Location: Echo laboratory. Study Conclusions - Left ventricle: The cavity size is normal. Wall thickness was increasedin a pattern of mild LVH. Systolic function was normal. The estimated ejection fraction was in therange of 55% to 60%. Wall motion was normal; there were no regional wall motion abnormalities. Thestudy is not technically sufficient to allow evaluation of LV diastolic function due totachycardia. - Ventricular septum: Abnormal septal motion. Septal motion isdyssynergic. - Aortic valve: Poorly visualized. Mild thickening. Mild calcification. - Left atrium: The atrium is mildly dilated. - Right ventricle: The cavity appears dilated in some views. Systolicfunction was normal. TAPSE: 2.1cm. - Right atrium: The atrium is dilated. - Tricuspid valve: Poorly visualized. - Pulmonic valve: Poorly visualized. - Pulmonary arteries: Systolic pressure could not be accuratelyestimated. - Inferior vena cava: Poorly visualized. Cardiac Anatomy Left ventricle: - The cavity size is normal. Wall thickness was increased in a pattern ofmild LVH. Systolic function was normal. The estimated ejection fraction was in the range of55% to 60%. Wall motion was normal; there were no regional wall motion abnormalities. - Wall motion score: 1.00. - The study is not technically sufficient to allow evaluation of LVdiastolic function due to tachycardia. Aorta: Aortic root: - The aortic root is normal in size. Aortic valve: - Poorly visualized. Mild thickening. Mild calcification. Doppler: - Transvalvular velocity is within the normal range. There is no stenosis.No regurgitation. Mitral valve: - Structurally normal valve. Mobility was not restricted. Doppler: - Transvalvular velocity is within the normal range. There is no evidencefor stenosis. No regurgitation. Left atrium: - The atrium is mildly dilated. Pulmonary artery: - Systolic pressure could not be accurately estimated. Systemic veins: Inferior vena cava: Poorly visualized. Right ventricle: - The cavity appears dilated in some views. Systolic function was normal.TAPSE: 2.1cm. Ventricular septum: - Abnormal septal motion. Septal motion is dyssynergic. Pulmonic valve: - Poorly visualized. Doppler: - Transvalvular velocity is within the normal range. There is no evidencefor stenosis. No regurgitation. Tricuspid valve: - Poorly visualized. Doppler: - Transvalvular velocity is within the normal range. No regurgitation. Right atrium: - The atrium is dilated. Pericardium: - There is no pericardial effusion. Systemic veins: Inferior vena cava: - Poorly visualized. Measurements Left ventricle Value 07/22/2019 Ref ESD major ax, A4C 7.0 cm 7.4 ESD/bsa major ax, A4C 3.0 cm/m^2 2.8 GINA minor ax, A4C 7.0 cm 7.4 GINA/bsa minor ax, A4C 3.0 cm/m^2 2.8 RACHEL, A4C 51.5 cm^2 39.1 MINERVA, A4C 25.4 cm^2 22.5 FAC, A4C 51 % 42 GINA major ax, A2C 10.1 cm 8.3 GINA/bsa major ax, A2C 4.3 cm/m^2 3.2 EDV, 1-p A4C (H) 215 ml 148 69 - 185 ESV, 1-p A4C (N) 77 ml 57 22 - 78 EF, 1-p A4C (N) 64 % 61 46 - 74 SV, 1-p A4C 137 ml 151 EDV/bsa, 1-p A4C (N) 92 ml/m^2 57 37 - 93 ESV/bsa, 1-p A4C (N) 33 ml/m^2 22 12 - 40 SV/bsa, 1-p A4C 59 ml/m^2 58 SV/bsa, 2-p 58.8 ml/m^2 36.4 E', lat russell, TDI (N) 17.9 cm/sec 9.1 >=10.0 E/e', lat russell, TDI 8 13 S', lat russell, TDI 10.9 cm/sec 7.1 E', med russell, TDI (N) 12.0 cm/sec 7.0 >=7.0 E/e', med russell, TDI 12 17 S', med russell, TDI 10.6 cm/sec 6.6 E', avg, TDI 15.0 cm/sec 8.1 E/e', avg, TDI (N) 10 15 <=14 LVOT Value 07/22/2019 Ref Peak cesilia, S 1.38 m/sec 1.12 Peak grad, S 8 mm Hg 5 Right ventricle Value 07/22/2019 Ref GINA, LAX 5.8 cm 4.7 TAPSE, MM (N) 2.1 cm 3.1 1.7 - 3.1 S' lateral (N) 13.2 cm/sec 14.5 6.0 - 13.4 RVOT Value 07/22/2019 Ref Peak v, S 1.18 m/sec 0.58 Peak grad, S 6 mm Hg Left atrium Value 07/22/2019 Ref AP dim, ES (H) 4.4 cm 4.6 3.0 - 4.0 AP dim index (N) 1.9 cm/m^2 1.8 1.5 - 2.3 Area ES, A4C (H) 23 cm^2 26 <=20 Area ES, A2C 25 cm^2 25 SI dim, A2C 5.4 cm 5.6 Vol, ES, 1-p A4C (H) 68 ml 84 18 - 58 Vol/bsa, ES, 1-p A4C (N) 29 ml/m^2 32 12 - 37 Vol, ES, 1-p A2C (H) 87 ml 89 18 - 58 Vol/bsa, ES, 1-p A2C (N) 37 ml/m^2 34 11 - 43 Vol, ES, 2-p 80 ml Vol/bsa, ES, 2-p (N) 34 ml/m^2 16 - 34 Right atrium Value 07/22/2019 Ref Area, ES, A4C (H) 22 cm^2 21 10 - 18 Aortic valve Value 07/22/2019 Ref Peak v, S 2.2 m/sec 1.8 Mean v, S 1.47 m/sec Mean grad, S 11 mm Hg Peak grad, S 20 mm Hg 13 LVOT/AV, Vpeak ratio 0.62 0.63 Mitral valve Value 07/22/2019 Ref Peak E 1.49 m/sec 1.18 Decel slope 731 cm/s^2 5.03 Decel time 204 ms 235 PHT 60 ms 69 Peak grad, D 9 mm Hg 6 MVA, PHT 3.7 cm^2 3.2 MVA/bsa, PHT 1.58 cm^2/m^2 1.22 Pulmonic valve Value 07/22/2019 Ref Peak v, S 1.6 m/sec 1.1 Aortic root Value 07/22/2019 Ref Root diam (N) 2.9 cm 2.8 <4.4 Legend: (L) and (H) dewey values outside specified reference range. (N) moran values inside specified reference range. Reviewed and confirmed by Thania Hamilton MD [id number] María Galvez MD CV ECHO ORDERABLES Final Resul t [facility] * (ABNORMAL) POC Glucose Monitoring Device (06/01/2020 11:27 AM EDT) [facility] POC Glucose Monitoring Device 144(H) 70 - 100 mg/dL 06/01/2020 11:28 AM EDT [facility] Blood specimen (specimen) 06/01/2020 11:27 AM EDT 06/01/2020 11:27 AM EDT us Aby Cavazos MD POINT OF CARE TEST ORDERABLES Fi nal Result [facility] [address] * (ABNORMAL) Renal Function Panel w/EGFR (06/01/2020 5:17 AM EDT) [facility] Sodium 138 133 - 146 mmol/L 06/01/2020 6:52 AM EDT [facility] Potassium 4.8 3.5 - 5.3 mmol/L 06/01/2020 6:52 AM EDT [facility] Chloride 97(L) 98 - 110 mmol/L 06/01/2020 6:52 AM EDT [facility] CO2 23 21 - 33 mmol/L 06/01/2020 6:52 AM EDT [facility] Anion Gap 18(H) 3 - 16 mmol/L 06/01/2020 6:52 AM EDT [facility] BUN 70(H) 7 - 25 mg/dL 06/01/2020 6:52 AM EDT [facility] Creatinine 11.79(H) 0.60 - 1.30 mg/dL 06/01/2020 6:52 AM EDT [facility] Glucose 132(H) 70 - 100 mg/dL 06/01/2020 6:52 AM EDT [facility] Calcium 9.5 8.6 - 10.3 mg/dL 06/01/2020 6:52 AM EDT [facility] Phosphorus 7.0(H) 2.1 - 4.7 mg/dL 06/01/2020 6:52 AM T [facility] Albumin 3.4(L) 3.5 - 5.7 g/dL 06/01/2020 6[facility] Osmolality, Calculated 308(H) 278 - 305 mOsm/kg 06/01/2020 6:52 [facility] eGFR AA CKD-EPI 5 See note. 0 6:52 AM [facility] Comment: As of 2015 the [...] new equation to estimate glomerular filtration rate. ??[facility]ell [facility]. 2009:150(9):604-12 eGFR NONAA CKD-EPI 5 See note. 06/01/2020 6:52 AM EDT [facility] Comment: As of 2015 the [...] new equation to estimate glomerular filtration rate. ??[facility]. 2009:150(9):604-12 Plasma specimen (specimen) 06/01/2020 5:17 AM EDT 06/01/2020 6:09 AM EDT Jay Day MD LAB BLOOD ORDERABLES Final Res ult [facility] [address] [facility] [place] [address], [facility] * (ABNORMAL) Protime-INR (06/01/2020 5:17 AM EDT) Protime 15.9(H) 12.1 - 15.1 seconds 06/01/2020 6:24 AM EDT [facility] INR 1.2(H) 0.9 - 1.1 06/01/2020 6:24 AM EDT [facility] Comment: RECOMMENDED THERAPEUTIC RANGES USING INR : ?Stable oral anticoagulant therapy: ? 2.0 - 3.0 ?Mechanical prosthetic heart valve: ? 2.5 - 3.5 ?Recurrent acute myocardial infarction: ? 2.5 - 3.5 Plasma specimen (specimen) 06/01/2020 5:17 AM EDT 06/01/2020 6:08 AM EDT Jay Day MD LAB BLOOD ORDERABLES Final Res ult [facility] [address] [facility] * Magnesium (06/01/2020 5:17 AM EDT) Magnesium 2.0 1.5 - 2.5 mg/dL 06/01/2020 6:52 AM EDT [facility] Plasma specimen (specimen) 06/01/2020 5:17 AM EDT 06/01/2020 6:09 AM EDT Jay Day MD LAB BLOOD ORDERABLES Final Res ult Performing Organization Address City/[facility] Co de Phone Number [facility] [address] * (ABNORMAL) Hepatic Function Panel (06/01/2020 5:17 AM EDT) Total Bilirubin 0.4 0.0 - 1.5 mg/dL 06/01/2020 6:52 AM EDT [facility] Bilirubin, Direct 0.02 0.00 - 0.40 mg/dL 06/01/2020 6:52 AM EDT [facility] AST 13 13 - 39 U/L 06/01/2020 6:52 AM EDT [facility] ALT 11 7 - 52 U/L 06/01/2020 6:52 AM EDT [facility] Alkaline Phosphatase 73 36 - 125 U/L 06/01/2020 6:52 AM EDT [facility] Total Protein 6.4 6.4 - 8.9 g/dL 06/01/2020 6:52 AM EDT [facility] Albumin 3.4(L) 3.5 - 5.7 g/dL 06/01/2020 6:52 AM EDT [facility] Bilirubin, Indirect 0.38 0.00 - 1.10 mg/dL 06/01/2020 6:52 AM EDT [facility] Plasma specimen (specimen) 06/01/2020 5:17 AM EDT 06/01/2020 6:09 AM EDT Jay Day MD LAB BLOOD ORDERABLES Final Res ult [facility] [address] [place] [id number], [facility] * (ABNORMAL) Differential (06/01/2020 5:17 AM EDT) Myelocytes Relative 1.9(H) 0.0 - 0.0 % 06/01/2020 6:55 AM EDT [facility] Metamyelocytes Relative 1.9(H) 0.0 - 0.0 % 06/01/2020 6:55 AM EDT [facility] Neutrophils Relative 80.6(H) 40.0 - 80.0 % 06/01/2020 6:55 AM EDT [facility] Lymphocytes Relative 9.7(L) 15.0 - 45.0 % 06/01/2020 6:55 AM EDT [facility] Monocytes Relative 2.0 0.0 - 12.0 % 06/01/2020 6:55 AM EDT [facility] Eosinophils Relative 3.9 0.0 - 8.0 % 06/01/2020 6:55 AM EDT [facility] Basophils Relative 0.0 0.0 - 1.0 % 06/01/2020 6:55 AM EDT [facility] Neutrophils Absolute 5,158 1,500 - 7,800 /uL 06/01/2020 6:55 AM EDT [facility] Metamyelocytes Absolute 122(H) 0 - 0 /uL 06/01/2020 6:55 AM EDT [facility] Myelocytes Absolute 122(H) 0 - 0 /uL 06/01/2020 6:55 AM EDT [facility] Lymphocytes Absolute 621(L) 850 - 3,900 /uL 06/01/2020 6:55 AM EDT [facility] Monocytes Absolute 128(L) 200 - 950 /uL 06/01/2020 6:55 AM EDT [facility] Eosinophils Absolute 250 15 - 500 /uL 06/01/2020 6:55 AM EDT [facility] Basophils Absolute 0 0 - 200 /uL 06/01/2020 6:55 AM EDT [facility] RBC Morphology Normal 06/01/2020 6:55 AM EDT [facility] PLT Morphology Platelet morphology appears normal 06/01/2020 6:55 AM EDT [facility] Whole blood specimen (specimen) 06/01/2020 5:17 AM EDT 06/01/2020 6:08 AM EDT Jay Day MD LAB BLOOD ORDERABLES Final Res ult [facility] [address] [facility] [place] [address], [facility] * (ABNORMAL) CBC (06/01/2020 5:17 AM EDT) WBC 6.4 3.8 - 10.8 10E3/uL 06/01/2020 6:16 AM EDT [facility] RBC 2.41(L) 4.20 - 5.80 10E6/uL 06/01/2020 6:16 AM EDT [facility] Hemoglobin 7.4(L) 13.2 - 17.1 g/dL 06/01/2020 6:16 AM EDT [facility] Hematocrit 22.0(L) 38.5 - 50.0 % 06/01/2020 6:16 AM EDT [facility] MCV 91.6 80.0 - 100.0 fL 06/01/2020 6:16 AM EDT [facility] MCH 30.5 27.0 - 33.0 pg 06/01/2020 6:16 AM EDT [facility] MCHC 33.3 32.0 - 36.0 g/dL 06/01/2020 6:16 AM EDT [facility] RDW 14.7 11.0 - 15.0 % 06/01/2020 6:16 AM EDT [facility] Platelets 337 140 - 400 10E3/uL 06/01/2020 6:16 AM EDT [facility] MPV 7.6 7.5 - 11.5 fL 06/01/2020 6:16 AM EDT [facility] Whole blood specimen (specimen) 06/01/2020 5:17 AM EDT 06/01/2020 6:08 AM EDT Jay Day MD LAB BLOOD ORDERABLES Final Res ult [facility] [address] * (ABNORMAL) C-Reactive Protein (06/01/2020 5:17 AM EDT) CRP 197.1(H) 1.0 - 10.0 mg/L 06/01/2020 6:52 AM EDT [facility] Plasma specimen (specimen) 06/01/2020 5:17 AM EDT 06/01/2020 6:09 AM EDT María Galvez MD LAB BLOOD ORDERABLES Final Res ult Performing Organization Address City/[facility]/ZIP Co de Phone Number [facility] [address] * (ABNORMAL) Sed Rate (06/01/2020 5:17 AM EDT) Pathologist [facility] Sed Rate 28(H) 0 - 15 mm/hr 06/01/2020 6:38 AM EDT [facility] Whole blood specimen (specimen) 06/01/2020 5:17 AM EDT 06/01/2020 6:08 AM EDT María Galvez MD LAB BLOOD ORDERABLES Final Res ult Performing Organization Address [facility] Co de Phone Number [facility] [address] [place], [place] [address]ue [address] * Vancomycin, trough (06/01/2020 5:17 AM EDT) Pathologist [facility] Vancomycin Tr 17.7 10.0 - 20.0 ug/mL 06/01/2020 6:43 AM EDT [facility] Plasma specimen (specimen) 06/01/2020 5:17 AM EDT 06/01/2020 6:10 AM EDT Aby Cavazos MD LAB BLOOD ORDERABLES Final Resul t Performing Organization Address City/[facility] Co de Phone Number [facility] [address] [place] [address] * (ABNORMAL) POC Glucose Monitoring Device (05/31/2020 10:00 PM EDT) POC Glucose Monitoring Device 188(H) 70 - 100 mg/dL 05/31/2020 10:01 PM EDT [facility] Blood specimen (specimen) 05/31/2020 10:00 PM EDT 05/31/2020 10:01 PM EDT us Aby Cavazos MD POINT OF CARE TEST ORDERABLES Fi nal Result Performing Organization Address City/[facility]/ZIP Co de Phone Number [facility] [address] [place] [address]. [address] * (ABNORMAL) POC Glucose Monitoring Device (05/31/2020 6:09 PM EDT) POC Glucose Monitoring Device 133(H) 70 - 100 mg/dL 05/31/2020 6:10 PM EDT [facility] Blood specimen (specimen) 05/31/2020 6:09 PM EDT 05/31/2020 6:09 PM EDT us Aby Cavazos MD POINT OF CARE TEST ORDERABLES Fi nal Result Performing Organization Address [facility] Co de Phone Number [facility] [address] [place] [address] * (ABNORMAL) POC Glucose Monitoring Device (05/31/2020 1:04 PM EDT) POC Glucose Monitoring Device 150(H) 70 - 100 mg/dL 05/31/2020 1:05 PM EDT [facility] Blood specimen (specimen) 05/31/2020 1:04 PM EDT 05/31/2020 1:05 PM EDT us Aby Cavazos MD POINT OF CARE TEST ORDERABLES Fi nal Result Performing Organization Address City/State/[facility] Co de Phone Number [facility] [address] * (ABNORMAL) POC Glucose Monitoring Device (05/31/2020 8:10 AM EDT) [facility] POC Glucose Monitoring Device 133(H) 70 - 100 mg/dL 05/31/2020 8:11 AM EDT [facility] Blood specimen (specimen) 05/31/2020 8:10 AM EDT 05/31/2020 8:10 AM EDT Aby Cavazos MD POINT OF CARE TEST ORDERABLES Fi nal Result [facility] [address] * ECG 12 lead (MUSE) (05/31/2020 6:17 AM EDT) 05/31/2020 6:17 AM EDT Narrative MUSE - 06/01/2020 9:31 AM EDT Ventricular Rate: ??131 ??BPM Atrial Rate: ??131 ??BPM P-R Interval: ??198 ??ms QRS Duration: ??102 ??ms QT: ??256 ??ms QTc: ??378 ??ms P Boyds: ??41 ??degrees R Boyds: ??51 ??degrees T Boyds: ??167 ??degrees Diagnosis Line: ??SINUS TACHYCARDIA ^ POSSIBLE LEFT ATRIAL ENLARGEMENT ^ ST SEGMENT CHANGE AND ANTEROLATERAL T WAVE INVERSION ^ POSSIBLE INFERIOR AL ^ COMPARED TO THE ECG OF 28-MAY-2020 13:29, ^ T WAVE INVERSION NOW EVIDENT IN ANTEROLATERAL LEADS ^ Confirmed by Marcelino JERRY MD ([id number]) on 06/01/2020 9:30:56 AM us Latrice Perez MD ECG ORDERABLES Final Result MUSE * Prepare RBC, leukoreduced (05/31/2020 6:15 AM EDT) [facility] Product Code G5146R60 [facility] Unit Number [id number] [facility] Dispense Status Presumed Transfused_PT [facility] Blood Expiration Date [id number] [facility] Coding System [id number] [facility] Product Code M9595H81 [facility] Unit Number [id number] [facility] Dispense Status Presumed Transfused_PT [facility] Blood Expiration Date [id number] [facility] Coding System [id number] HCLL us Attending Provider Unknown BLOOD BANK PRODUCT OR DERABLES Final Result Performing Organization Address [facility] Co de Phone Number [facility] * (ABNORMAL) Protime-INR (05/31/2020 4:29 AM EDT) Protime 17.0(H) 12.1 - 15.1 seconds 05/31/2020 5:10 AM EDT [facility] INR 1.4(H) 0.9 - 1.1 05/31/2020 5:10 AM EDT [facility] Comment: RECOMMENDED THERAPEUTIC RANGES USING INR : ?Stable oral anticoagulant therapy: ? 2.0 - 3.0 ?Mechanical prosthetic heart valve: ? 2.5 - 3.5 ?Recurrent acute myocardial infarction: ? 2.5 - 3.5 Plasma specimen (specimen) 05/31/2020 4:29 AM EDT 05/31/2020 4:55 AM EDT Jay Day MD LAB BLOOD ORDERABLES Final Res ult Performing Organization Address [facility]/ZIP Co de Phone Number [facility] [address] [place] [address], [facility] * (ABNORMAL) Renal Function Panel w/EGFR (05/31/2020 4:29 AM EDT) Sodium 136 133 - 146 mmol/L 05/31/2020 5:25 AM EDT [facility] Potassium 4.7 3.5 - 5.3 mmol/L 05/31/2020 5:25 AM EDT [facility] Chloride 97(L) 98 - 110 mmol/L 05/31/2020 5:25 AM EDT [facility] CO2 26 21 - 33 mmol/L 05/31/2020 5:25 AM EDT [facility] Anion Gap 13 3 - 16 mmol/L 05/31/2020 5:25 AM EDT [facility] BUN 64(H) 7 - 25 mg/dL 05/31/2020 5:25 AM EDT [facility] Creatinine 10.62(H) 0.60 - 1.30 mg/dL 05/31/2020 5:25 AM EDT [facility] Glucose 127(H) 70 - 100 mg/dL 05/31/2020 5:25 AM EDT [facility] Calcium 9.2 8.6 - 10.3 mg/dL 05/31/2020 5:25 AM EDT [facility] Phosphorus 6.8(H) 2.1 - 4.7 mg/dL 05/31/2020 5:25 AM EDT [facility] Albumin 3.2(L) 3.5 - 5.7 g/dL 05/31/2020 5:25 AM EDT [facility] Osmolality, Calculated 302 278 - 305 mOsm/kg 05/31/2020 5:25 AM EDT [facility] eGFR AA CKD-EPI 6 See note. 0 5:[facility] Comment: As of 2015 the [...] new equation to estimate glomerular filtration rate. ??Russell [facility]. 2009:150(9):604-12 eGFR NONAA CKD-EPI 5 See note. 05/31/2020 5:25 AM [facility] Comment: As of 2015 the [...] new equation to estimate glomerular filtration rate. ??[facility]ell [facility]. 2009:150(9):604-12 Plasma specimen (specimen) 05/31/2020 4:29 AM EDT 05/31/2020 4:54 AM EDT Jay Day MD LAB BLOOD ORDERABLES Final Res ult Performing Organization Address [facility] Co de Phone Number [facility] [address] [facility] * Magnesium (05/31/2020 4:29 AM EDT) Magnesium 2.0 1.5 - 2.5 mg/dL 05/31/2020 5:25 AM EDT [facility] Plasma specimen (specimen) 05/31/2020 4:29 AM EDT 05/31/2020 4:54 AM EDT Jay Day MD LAB BLOOD ORDERABLES Final Res ult Performing Organization Address [facility] de Phone Number [facility] [address] [facility]. [address] * (ABNORMAL) Hepatic Function Panel (05/31/2020 4:29 AM EDT) Total Bilirubin 0.4 0.0 - 1.5 mg/dL 05/31/2020 5:25 AM EDT [facility] Bilirubin, Direct 0.10 0.00 - 0.40 mg/dL 05/31/2020 5:25 AM EDT [facility] AST 11(L) 13 - 39 U/L 05/31/2020 5:25 AM EDT [facility] ALT 14 7 - 52 U/L 05/31/2020 5:25 AM EDT [facility] Alkaline Phosphatase 74 36 - 125 U/L 05/31/2020 5:25 AM EDT [facility] Total Protein 6.1(L) 6.4 - 8.9 g/dL 05/31/2020 5:25 AM EDT [facility] Albumin 3.2(L) 3.5 - 5.7 g/dL 05/31/2020 5:25 AM EDT [facility] Bilirubin, Indirect 0.30 0.00 - 1.10 mg/dL 05/31/2020 5:25 AM EDT [facility] Plasma specimen (specimen) 05/31/2020 4:29 AM EDT 05/31/2020 4:54 AM EDT us Jay Day MD LAB BLOOD ORDERABLES Final Res ult [facility] [address] [place] [address], [facility] * (ABNORMAL) Differential (05/31/2020 4:29 AM EDT) Neutrophils Relative 78.0 40.0 - 80.0 % 05/31/2020 5:06 AM EDT [facility] Lymphocytes Relative 12.4(L) 15.0 - 45.0 % 05/31/2020 5:06 AM EDT [facility] Monocytes Relative 7.2 0.0 - 12.0 % 05/31/2020 5:06 AM EDT [facility] Eosinophils Relative 2.2 0.0 - 8.0 % 05/31/2020 5:06 AM EDT [facility] Basophils Relative 0.2 0.0 - 1.0 % 05/31/2020 5:06 AM EDT [facility] nRBC 0 0 - 0 /100 WBC 05/31/2020 5:06 AM EDT [facility] Neutrophils Absolute 5,928 1,500 - 7,800 /uL 05/31/2020 5:06 AM EDT [facility] Lymphocytes Absolute 942 850 - 3,900 /uL 05/31/2020 5:06 AM EDT [facility] Monocytes Absolute 547 200 - 950 /uL 05/31/2020 5:06 AM EDT [facility] Eosinophils Absolute 167 15 - 500 /uL 05/31/2020 5:06 AM EDT [facility] Basophils Absolute 15 0 - 200 /uL 05/31/2020 5:06 AM EDT [facility] Whole blood specimen (specimen) 05/31/2020 4:29 AM EDT 05/31/2020 4:54 AM EDT Jay Day MD LAB BLOOD ORDERABLES Final Res ult [facility] [address] [facility] [place] [address], [facility] * (ABNORMAL) CBC (05/31/2020 4:29 AM EDT) WBC 7.6 3.8 - 10.8 10E3/uL 05/31/2020 5:06 AM EDT [facility] RBC 2.55(L) 4.20 - 5.80 10E6/uL 05/31/2020 5:06 AM EDT [facility] Hemoglobin 7.8(L) 13.2 - 17.1 g/dL 05/31/2020 5:06 AM EDT [facility] Hematocrit 23.4(L) 38.5 - 50.0 % 05/31/2020 5:06 AM EDT [facility] MCV 91.6 80.0 - 100.0 fL 05/31/2020 5:06 AM EDT [facility] MCH 30.5 27.0 - 33.0 pg 05/31/2020 5:06 AM EDT [facility] MCHC 33.2 32.0 - 36.0 g/dL 05/31/2020 5:06 AM EDT [facility] RDW 15.4(H) 11.0 - 15.0 % 05/31/2020 5:06 AM EDT [facility] Platelets 329 140 - 400 10E3/uL 05/31/2020 5:06 AM EDT [facility] MPV 7.8 7.5 - 11.5 fL 05/31/2020 5:06 AM EDT [facility] Whole blood specimen (specimen) 05/31/2020 4:29 AM EDT 05/31/2020 4:54 AM EDT Jay Day MD LAB BLOOD ORDERABLES Final Res ult [facility] [address] [facility] * (ABNORMAL) Cyclosporine level (05/31/2020 4:29 AM EDT) Pathologist [facility] Cyclosporine, Blood 46(L) 100 - 400 ng/mL 05/31/2020 12:49 PM EDT [facility] Comment: Detection limit: ??30 ng/mL. ??Performed via chemiluminescent microparticle immunoassay on the [employer] i1000. Whole blood specimen (specimen) 05/31/2020 4:29 AM EDT 05/31/2020 5:20 AM EDT us María Galvez MD LAB BLOOD ORDERABLES Final Res ult [facility] [address] [facility] * (ABNORMAL) CBC (05/30/2020 11:33 PM EDT) Pathologist [facility] WBC 9.5 3.8 - 10.8 10E3/uL 05/30/2020 11:50 PM EDT [facility] RBC 2.65(L) 4.20 - 5.80 10E6/uL 05/30/2020 11:50 PM EDT [facility] Hemoglobin 7.7(L) 13.2 - 17.1 g/dL 05/30/2020 11:50 PM EDT [facility] Hematocrit 24.1(L) 38.5 - 50.0 % 05/30/2020 11:50 PM EDT [facility] MCV 90.8 80.0 - 100.0 fL 05/30/2020 11:50 PM EDT [facility] MCH 29.1 27.0 - 33.0 pg 05/30/2020 11:50 PM EDT [facility] MCHC 32.1 32.0 - 36.0 g/dL 05/30/2020 11:50 PM EDT [facility] RDW 15.2(H) 11.0 - 15.0 % 05/30/2020 11:50 PM EDT [facility] Platelets 369 140 - 400 10E3/uL 05/30/2020 11:50 PM EDT [facility] MPV 7.4(L) 7.5 - 11.5 fL 05/30/2020 11:50 PM EDT [facility] Whole blood specimen (specimen) 05/30/2020 11:33 PM EDT 05/30/2020 11:41 PM EDT Jay Day MD LAB BLOOD ORDERABLES Final Res ult Performing Organization Address [facility]/ZIP Co de Phone Number [facility] [address] [facility]. [address] * (ABNORMAL) POC Glucose Monitoring Device (05/30/2020 10:36 PM EDT) POC Glucose Monitoring Device 114(H) 70 - 100 mg/dL 05/30/2020 10:38 PM EDT [facility] Blood specimen (specimen) 05/30/2020 10:36 PM EDT 05/30/2020 10:37 PM EDT Aby Cavazos MD POINT OF CARE TEST ORDERABLES Fi nal Result Performing Organization Address [facility] Co de Phone Number [facility] [address] [facility] * MRI Lumbar spine WO contrast (05/30/2020 8:44 PM EDT) Anatomical Region Laterality Modality L-spine Magnetic Resonan ce 05/30/2020 8:30 PM EDT Impressions 05/30/2020 9:05 PM EDT IMPRESSION: 1. ??Transitional anatomy is noted at the lumbosacral junction. The patient has 12 rib-bearing vertebral bodies, with the last rib-bearing vertebral bodies numbered as T12. L5 is sacralized. 2. ??Findings of osteomyelitis discitis again noted at L4-L5 with a moderate- sized epidural abscess, compressing the distal thecal sac. 3. ??An additional 5.1 x 2.9 x 4.4 cm fluid collection in the dorsal paraspinal soft tissues. Posterior laminectomy changes are noted at this level, the findings could represent a small postoperative seroma versus an abscess. Report Verified by: Leanna Wilks MD at 05/30/2020 9:05 PM EDT Narrative 05/30/2020 9:05 PM EDT EXAM: MRI LUMBAR SPINE WO CONTRAST INDICATION: Low back pain, infection suspected, TECHNIQUE: MRI LUMBAR SPINE WITHOUT CONTRAST obtained including multiplanar T1 and T2 weighted imaging. COMPARISON: CT scan of the lumbar spine from 05/27/2020 performed an outside institution. FINDINGS: The diagnostic quality of the examination is adequate. Numbering convention: Transitional appearance of the lumbosacral junction, partial sacralization of L5 is designated. Alignment: Preserved Osseous structures: There is abnormal marrow signal, with extensive edema surrounding fluid in the intervertebral disc space at L4-L5, consistent with an osteomyelitis discitis. There is an epidural abscess posterior to the L4 and L5 vertebral body, markedly narrowing the thecal sac, measuring 1.8 cm in maximum AP diameter. The epidural abscess measures approximately 5.1 cm in craniocaudal dimension. There are posterior laminectomy changes noted at L4-L5, however there are superimposed osseous destructive changes in the residual posterior elements on the CT scan of 05/27/2020. No additional areas of osteomyelitis or discitis are appreciated. Vertebral body heights are preserved. Distal thoracic cord and conus: There is moderate compression of the thecal sac at the level of L4-L5. The cauda equina nerve roots are otherwise unremarkable. The conus medullaris terminates in normal position. Extraspinal structures: There is a fluid collection in the paraspinal dorsal soft tissues, measuring 5.1 x 2.9 x 4.4 cm, spanning from the level of the L3 and L4 spinous processes. There is abnormal edema in the paraspinal musculature. There is mild central extension of the epidural fluid collection, with abnormal signal in the prevertebral soft tissues at the level of L5-S1, with presacral edema noted. Procedure Note Leanna Wilks MD - 05/30/2020 EXAM: MRI LUMBAR SPINE WO CONTRAST INDICATION: Low back pain, infection suspected, TECHNIQUE: MRI LUMBAR SPINE WITHOUT CONTRAST obtained includingmultiplanar T1 and T2 weighted imaging. COMPARISON: CT scan of the lumbar spine from 05/27/2020 performed anoutside institution. FINDINGS: The diagnostic quality of the examination is adequate. Numbering convention: Transitional appearance of the lumbosacral junction,partial sacralization of L5 is designated. Alignment: Preserved Osseous structures: There is abnormal marrow signal, with extensive edemasurrounding fluid in the intervertebral disc space at L4-L5, consistentwith an osteomyelitis discitis. There is an epidural abscess posterior tothe L4 and L5 vertebral body, markedly narrowing the thecal sac, measuring1.8 cm in maximum AP diameter. The epidural abscess measures approximately5.1 cm in craniocaudal dimension. There are posterior laminectomy changes noted at L4-L5, however there aresuperimposed osseous destructive changes in the residual posteriorelements on the CT scan of 05/27/2020. No additional areas of osteomyelitis or discitis are appreciated.Vertebral body heights are preserved. Distal thoracic cord and conus: There is moderate compression of thethecal sac at the level of L4-L5. The cauda equina nerve roots areotherwise unremarkable. The conus medullaris terminates in normalposition. Extraspinal structures: There is a fluid collection in the paraspinaldorsal soft tissues, measuring 5.1 x 2.9 x 4.4 cm, spanning from the levelof the L3 and L4 spinous processes. There is abnormal edema in theparaspinal musculature. There is mild central extension of the epiduralfluid collection, with abnormal signal in the prevertebral soft tissues atthe level of L5-S1, with presacral edema noted. IMPRESSION: 1. Transitional anatomy is noted at the lumbosacral junction. The patienthas 12 rib-bearing vertebral bodies, with the last rib-bearing vertebralbodies numbered as T12. L5 is sacralized. 2. Findings of osteomyelitis discitis again noted at L4-L5 with amoderate-sized epidural abscess, compressing the distal thecal sac. 3. An additional 5.1 x 2.9 x 4.4 cm fluid collection in the dorsalparaspinal soft tissues. Posterior laminectomy changes are noted at thislevel, the findings could represent a small postoperative seroma versus anabscess. Report Verified by: Leanna Wilks MD at 05/30/2020 9:05 PM EDT us Jenny Alaniz MD IMG MRI ORDERABLES Final Result * Transfuse RBC (05/30/2020 7:06 PM EDT) us Jay Day MD NURSING TREATMENT ORDERABLES - BLOOD ADMIN Final Result EXTERNAL * POC Glucose Monitoring Device (05/30/2020 4:19 PM EDT) [facility] POC Glucose Monitoring Device 100 70 - 100 mg/dL 05/30/2020 4:20 PM EDT [facility] Blood specimen (specimen) 05/30/2020 4:19 PM EDT 05/30/2020 4:20 PM EDT Aby Cavazos MD POINT OF CARE TEST ORDERABLES Fi nal Result Performing Organization Address City/[facility]/ZIP Co de Phone Number [facility] [address] [facility] * Transfuse RBC (05/30/2020 12:30 PM EDT) Alex Fong MD NURSING TREATMENT ORDERABLES - B LOOD ADMIN Final Result Performing Organization Address [facility] Co de Phone Number EXTERNAL * Transfuse RBC Has consent been obtained? Yes; Transfusion Rate: Per dept routine, 1 Units (05/30/2020 12:30 PM EDT) Alex Fong MD NURSING TREATMENT ORDERABLES - B LOOD ADMIN Final Result Performing Organization Address [facility] de Phone Number EXTERNAL * Cyclosporine level (05/30/2020 12:06 PM EDT) [facility] Cyclosporine, Blood 110 100 - 400 ng/mL 05/31/2020 12:48 PM EDT [facility] Comment: Detection limit: ??30 ng/mL. ??Performed via chemiluminescent microparticle immunoassay on the [employer] i1000. Whole blood specimen (specimen) 05/30/2020 12:06 PM EDT 05/30/2020 12:43 PM EDT María Galvez MD LAB BLOOD ORDERABLES Final Res ult Performing Organization Address [facility] Co de Phone Number [facility] [address] * Lactic Acid (05/30/2020 12:06 PM EDT) [facility] Lactate 0.7 0.5 - 2.2 mmol/L 05/30/2020 1:07 PM EDT [facility] Plasma specimen (specimen) 05/30/2020 12:06 PM EDT 05/30/2020 12:32 PM EDT us Alex Fong MD LAB BLOOD ORDERABLES Final Resul t Performing Organization Address [facility]/ZIP Co de Phone Number [facility] [address] [facility] * Vancomycin, random (05/30/2020 12:06 PM EDT) Vancomycin Random 22.9 ug/mL 05/30/2020 1:07 PM EDT [facility] Comment:Reference range not established for this test. Plasma specimen (specimen) 05/30/2020 12:06 PM EDT 05/30/2020 12:43 PM EDT us Abbie Cifuentes MD LAB BLOOD ORDERABLES F inal Result Performing Organization Address [facility] Co de Phone Number [facility] [address] [facility] * (ABNORMAL) C-Reactive Protein (05/30/2020 12:06 PM EDT) CRP 159.9(H) 1.0 - 10.0 mg/L 05/30/2020 1:10 PM EDT [facility] Plasma specimen (specimen) 05/30/2020 12:06 PM EDT 05/30/2020 12:43 PM EDT us María Galvez MD LAB BLOOD ORDERABLES Final Res ult Performing Organization Address [facility] Co de Phone Number [facility] [address] [place] [address]. [address] * (ABNORMAL) Sed Rate (05/30/2020 12:06 PM EDT) Sed Rate 25(H) 0 - 15 mm/hr 05/30/2020 1:12 PM EDT [facility] Whole blood specimen (specimen) 05/30/2020 12:06 PM EDT 05/30/2020 12:43 PM EDT us María Galvez MD LAB BLOOD ORDERABLES Final Res ult Performing Organization Address [facility] Co de Phone Number [facility] [address] * (ABNORMAL) Protime-INR, AM (05/30/2020 12:06 PM EDT) Protime 16.8(H) 12.1 - 15.1 seconds 05/30/2020 12:56 PM EDT [facility] INR 1.3(H) 0.9 - 1.1 05/30/2020 12:56 PM EDT [facility] Comment: RECOMMENDED THERAPEUTIC RANGES USING INR : ?Stable oral anticoagulant therapy: ? 2.0 - 3.0 ?Mechanical prosthetic heart valve: ? 2.5 - 3.5 ?Recurrent acute myocardial infarction: ? 2.5 - 3.5 Plasma specimen (specimen) 05/30/2020 12:06 PM EDT 05/30/2020 12:43 PM EDT us María Galvez MD LAB BLOOD ORDERABLES Final Res ult Performing Organization Address [facility] Co de Phone Number [facility] [address] [facility] * (ABNORMAL) Hepatic Function Panel, AM (05/30/2020 12:06 PM EDT) Total Bilirubin 0.4 0.0 - 1.5 mg/dL 05/30/2020 1:10 PM EDT [facility] Bilirubin, Direct 0.04 0.00 - 0.40 mg/dL 05/30/2020 1:10 PM EDT [facility] AST 12(L) 13 - 39 U/L 05/30/2020 1:10 PM EDT [facility] ALT 14 7 - 52 U/L 05/30/2020 1:10 PM EDT [facility] Alkaline Phosphatase 82 36 - 125 U/L 05/30/2020 1:10 PM EDT [facility] Total Protein 6.1(L) 6.4 - 8.9 g/dL 05/30/2020 1:10 PM EDT [facility] Albumin 3.3(L) 3.5 - 5.7 g/dL 05/30/2020 1:10 PM EDT [facility] Bilirubin, Indirect 0.36 0.00 - 1.10 mg/dL 05/30/2020 1:10 PM EDT [facility] Plasma specimen (specimen) 05/30/2020 12:06 PM EDT 05/30/2020 12:43 PM EDT María Galvez MD LAB BLOOD ORDERABLES Final Res ult Performing Organization Address City/[facility]/ZIP Co de Phone Number [facility] [address] * Magnesium, AM (05/30/2020 12:06 PM EDT) Magnesium 1.8 1.5 - 2.5 mg/dL 05/30/2020 1:10 PM EDT [facility] Plasma specimen (specimen) 05/30/2020 12:06 PM EDT 05/30/2020 12:43 PM EDT María Galvez MD LAB BLOOD ORDERABLES Final Res ult [facility] [address] * (ABNORMAL) Renal Function Panel w/EGFR (05/30/2020 12:06 PM EDT) Sodium 137 133 - 146 mmol/L 05/30/2020 1:10 PM EDT [facility] Potassium 4.8 3.5 - 5.3 mmol/L 05/30/2020 1:10 PM EDT [facility] Chloride 96(L) 98 - 110 mmol/L 05/30/2020 1:10 PM EDT [facility] CO2 25 21 - 33 mmol/L 05/30/2020 1:10 PM EDT [facility] Anion Gap 16 3 - 16 mmol/L 05/30/2020 1:10 PM EDT [facility] BUN 56(H) 7 - 25 mg/dL 05/30/2020 1:10 PM EDT [facility] Creatinine 10.01(H) 0.60 - 1.30 mg/dL 05/30/2020 1:10 PM EDT [facility] Glucose 112(H) 70 - 100 mg/dL 05/30/2020 1:10 PM EDT [facility] Calcium 8.8 8.6 - 10.3 mg/dL 05/30/2020 1:10 PM EDT [facility] Phosphorus 6.4(H) 2.1 - 4.7 mg/dL 05/30/2020 1:10 PM EDT [facility] Albumin 3.3(L) 3.5 - 5.7 g/dL 05/30/2020 1:10 PM EDT [facility] Osmolality, Calculated 300 278 - 305 mOsm/kg 05/30/2020 1:10 PM EDT [facility] eGFR AA CKD-EPI 6 See note. 0 1:10 PM EDT [facility] Comment: As of 2015 the [...] new equation to estimate glomerular filtration rate. ??[facility] [employer]. 2009:150(9):604-12 eGFR NONAA CKD-EPI 6 See note. 05/30/2020 1:10 PM EDT [facility] Comment: As of 2015 the [...] new equation to estimate glomerular filtration rate. ??[facility] [facility]. 2009:150(9):604-12 Plasma specimen (specimen) 05/30/2020 12:06 PM EDT 05/30/2020 12:43 PM EDT us María Galvez MD LAB BLOOD ORDERABLES Final Res ult [facility] [address] [place] [address], [facility] * (ABNORMAL) CBC, AM (05/30/2020 12:06 PM EDT) WBC 8.9 3.8 - 10.8 10E3/uL 05/30/2020 12:55 PM EDT [facility] RBC 2.29(L) 4.20 - 5.80 10E6/uL 05/30/2020 12:55 PM EDT [facility] Hemoglobin 6.7(L) 13.2 - 17.1 g/dL 05/30/2020 12:55 PM EDT [facility] Hematocrit 21.0(L) 38.5 - 50.0 % 05/30/2020 12:55 PM EDT [facility] MCV 91.9 80.0 - 100.0 fL 05/30/2020 12:55 PM EDT [facility] MCH 29.4 27.0 - 33.0 pg 05/30/2020 12:55 PM EDT [facility] MCHC 32.0 32.0 - 36.0 g/dL 05/30/2020 12:55 PM EDT [facility] RDW 14.7 11.0 - 15.0 % 05/30/2020 12:55 PM EDT [facility] Platelets 358 140 - 400 10E3/uL 05/30/2020 12:55 PM EDT [facility] MPV 7.9 7.5 - 11.5 fL 05/30/2020 12:55 PM EDT [facility] Whole blood specimen (specimen) 05/30/2020 12:06 PM EDT 05/30/2020 12:43 PM EDT María Galvez MD LAB BLOOD ORDERABLES Final Res ult Performing Organization Address [facility] Co de Phone Number [facility] [address] * (ABNORMAL) POC Glucose Monitoring Device (05/30/2020 10:33 AM EDT) POC Glucose Monitoring Device 134(H) 70 - 100 mg/dL 05/30/2020 10:35 AM EDT [facility] Blood specimen (specimen) 05/30/2020 10:33 AM EDT 05/30/2020 10:34 AM EDT Aby Cavazos MD POINT OF CARE TEST ORDERABLES Fi nal Result Performing Organization Address [facility] Co de Phone Number [facility] [address] * (ABNORMAL) Blood Gas, Arterial (05/30/2020 10:21 AM EDT) FIO2 28 05/30/2020 10:27 AM EDT [facility] pH, Arterial 7.39 7.35 - 7.45 05/30/2020 10:27 AM EDT [facility] pCO2, Arterial 48(H) 35 - 45 mm Hg 05/30/2020 10:27 AM EDT [facility] pO2, Arterial 65(L) 80 - 100 mm Hg 05/30/2020 10:27 AM EDT [facility] HCO3, Arterial 29(H) 22 - 26 mmol/L 05/30/2020 10:27 AM EDT [facility] CO2 Content,Arteri al 30(H) 23 - 27 mmol/L 05/30/2020 10:27 AM EDT [facility] Base Excess, Arterial 3.5(H) -2.0 - 3.0 mmol/L 05/30/2020 10:27 AM EDT [facility] %HBO2, Arterial 90.1(L) 95.0 - 98.0 % 05/30/2020 10:27 AM EDT [facility] Carboxyhemoglo bin, Arterial 1.5 % 05/30/2020 10:27 AM EDT [facility] Comment: CARBOXYHEMOGLOBIN (CO) REFERENCE RANGES: Non-Smokers: ??<2 % ? Smokers: ??<8 % TOXIC: >20 % Methemoglobin, Arterial 1.2 0.0 - 1.5 % 05/30/2020 10:27 AM EDT [facility] Reduced hemoglobin, Arterial 7.2(H) 0.0 - 5.0 % 05/30/2020 10:27 AM EDT [facility] Arterial blood specimen (specimen) 05/30/2020 10:21 AM EDT 05/30/2020 10:26 AM EDT Jay Day MD LAB BLOOD ORDERABLES Final Res ult Performing Organization Address [facility] de Phone Number [facility] [address] * (ABNORMAL) CMV IgM Antibody (05/30/2020 12:29 AM EDT) [facility] CMV IgM Positive( A) Negative 05/31/2020 9:52 AM EDT [facility] Comment:Result indicates the presence of detectable CMV IgM antibodies. A Positive result is generally indicative of acute infection, reactivation or persistent IgM production. CMV IGM NUM 100.00(H) 0.00 - 29.99 AU/mL 05/31/2020 9:52 AM EDT [facility] Serum specimen (specimen) 05/30/2020 12:29 AM EDT 05/30/2020 12:44 AM EDT Jay Day MD LAB BLOOD ORDERABLES Final Res ult Performing Organization Address [facility] de Phone Number [facility] [address] * (ABNORMAL) CMV IgG Antibody (05/30/2020 12:29 AM EDT) CMV IgG Positive(A ) Negative 05/31/2020 9:34 AM EDT [facility] CMV IGG NUM 10.00(H) 0.00 - 0.59 U/mL 05/31/2020 9:34 AM EDT [facility] Serum specimen (specimen) 05/30/2020 12:29 AM EDT 05/30/2020 12:44 AM EDT Jay Day MD LAB BLOOD ORDERABLES Final Res ult Performing Organization Address [facility] Co de Phone Number [facility] [address] [facility] * Cytomegalovirus DNA, Quant, Rt PCR (05/30/2020 12:29 AM EDT) Pathologist [facility] CMV DNA Qnt 685 IU/mL 06/01/2020 11:41 AM EDT [facility] Comment:Test methodology for CMV quantification is an FDA-approved nucleic acid amplification assay. The Lower Limit of Quantitation (LLOQ) is 137 IU/mL; the linear range is 137- 9,100,000 IU/mL. The limit of Detection is (LoD) is 91 IU/mL. Log10 CMV Qn DNA PI 2.84 log 10 IU/mL 06/01/2020 11:41 AM EDT [facility] Comment:CMV DNA has been det ected. Plasma specimen (specimen) 05/30/2020 12:29 AM EDT 05/30/2020 1:37 AM EDT Jay Day MD LAB BLOOD ORDERABLES Final Res ult Performing Organization Address [facility] Co de Phone Number [facility] [address] [place] [address], [facility] * (ABNORMAL) Cyclosporine level (05/30/2020 12:29 AM EDT) Pathologist [facility] Cyclosporine, Blood <30(L) 100 - 400 ng/mL 05/30/2020 12:24 PM EDT [facility] Comment: Detection limit: ??30 ng/mL. ??Performed via chemiluminescent microparticle immunoassay on the [employer] i1000. Whole blood specimen (specimen) 05/30/2020 12:29 AM EDT 05/30/2020 12:44 AM EDT María Galvez MD LAB BLOOD ORDERABLES Final Res ult Performing Organization Address [facility] de Phone Number [facility] [address] * (ABNORMAL) Hepatic Function Panel (05/30/2020 12:29 AM EDT) Total Bilirubin 0.4 0.0 - 1.5 mg/dL 05/30/2020 1:13 AM EDT [facility] Bilirubin, Direct 0.08 0.00 - 0.40 mg/dL 05/30/2020 1:13 AM EDT [facility] AST 15 13 - 39 U/L 05/30/2020 1:13 AM EDT [facility] ALT 19 7 - 52 U/L 05/30/2020 1:13 AM EDT [facility] Alkaline Phosphatase 88 36 - 125 U/L 05/30/2020 1:13 AM EDT [facility] Total Protein 6.3(L) 6.4 - 8.9 g/dL 05/30/2020 1:13 AM EDT [facility] Albumin 3.3(L) 3.5 - 5.7 g/dL 05/30/2020 1:13 AM EDT [facility] Bilirubin, Indirect 0.32 0.00 - 1.10 mg/dL 05/30/2020 1:13 AM EDT [facility] Plasma specimen (specimen) 05/30/2020 12:29 AM EDT 05/30/2020 12:44 AM EDT María Galvez MD LAB BLOOD ORDERABLES Final Res ult Performing Organization Address [facility] Co de Phone Number [facility] [address] * Magnesium (05/30/2020 12:29 AM EDT) Magnesium 1.8 1.5 - 2.5 mg/dL 05/30/2020 1:13 AM EDT [facility] Plasma specimen (specimen) 05/30/2020 12:29 AM EDT 05/30/2020 12:44 AM EDT us María Galvez MD LAB BLOOD ORDERABLES Final Res ult [facility] [address] [place] [address], [facility] * (ABNORMAL) Renal Function Panel w/EGFR (05/30/2020 12:29 AM EDT) Sodium 137 133 - 146 mmol/L 05/30/2020 1:13 AM EDT [facility] Potassium 4.5 3.5 - 5.3 mmol/L 05/30/2020 1:13 AM EDT [facility] Chloride 94(L) 98 - 110 mmol/L 05/30/2020 1:13 AM EDT [facility] CO2 24 21 - 33 mmol/L 05/30/2020 1:13 AM EDT [facility] Anion Gap 19(H) 3 - 16 mmol/L 05/30/2020 1:13 AM EDT [facility] BUN 51(H) 7 - 25 mg/dL 05/30/2020 1:13 AM EDT [facility] Creatinine 8.15(H) 0.60 - 1.30 mg/dL 05/30/2020 1:13 AM EDT [facility] Glucose 147(H) 70 - 100 mg/dL 05/30/2020 1:13 AM EDT [facility] Calcium 8.8 8.6 - 10.3 mg/dL 05/30/2020 1:13 AM EDT [facility] Phosphorus 4.8(H) 2.1 - 4.7 mg/dL 05/30/2020 1:13 AM EDT [facility] Albumin 3.3(L) 3.5 - 5.7 g/dL 05/30/2020 1:13 AM EDT [facility] Osmolality, Calculated 300 278 - 305 mOsm/kg 05/30/2020 1:13 AM EDT [facility] eGFR AA CKD-EPI 8 See note. 0 1:13 AM EDT [facility] Comment: As of 2015 the [...] new equation to estimate glomerular filtration rate. ??Russell Crane Man Med. 2009:150(9):604-12 eGFR NONAA CKD-EPI 7 See note. 2019 1:13 AM EDT [facility] Comment: As of 2015 the estimated GFR is calculated from serum creatinine using the Chronic Kidney Disease Epidemiology Collaboration (CKD-EPI) equation in patients 18 years and older. ??The reference range is >60 mL/min/1.73m2. ??eGFR values greater than 90 will be reported as >90mL/min/1.73m2. Reference: Neftali Castle Schmid CH, Ranulfo QUEZADA, Colten KEARNEY, , Quan MILLER, et. al. A new equation to estimate glomerular filtration rate. ??Russell Crane Man Med. 2009:150(9):604-12 Plasma specimen (specimen) 05/30/2020 12:29 AM EDT 05/30/2020 12:44 AM EDT us María Galvez MD LAB BLOOD ORDERABLES Final Res ult Performing Organization Address City/State/[facility] Co de Phone Number [facility] [address] * (ABNORMAL) CBC (05/30/2020 12:29 AM EDT) WBC 11.4(H) 3.8 - 10.8 10E3/uL 05/30/2020 12:51 AM EDT [facility] RBC 2.14(L) 4.20 - 5.80 10E6/uL 05/30/2020 12:51 AM EDT [facility] Hemoglobin 6.2(L) 13.2 - 17.1 g/dL 05/30/2020 12:51 AM EDT [facility] Hematocrit 19.9(L) 38.5 - 50.0 % 05/30/2020 12:51 AM EDT [facility] MCV 92.8 80.0 - 100.0 fL 05/30/2020 12:51 AM EDT [facility] MCH 28.9 27.0 - 33.0 pg 05/30/2020 12:51 AM EDT [facility] MCHC 31.1(L) 32.0 - 36.0 g/dL 05/30/2020 12:51 AM EDT [facility] RDW 15.4(H) 11.0 - 15.0 % 05/30/2020 12:51 AM EDT [facility] Platelets 349 140 - 400 10E3/uL 05/30/2020 12:51 AM EDT [facility] MPV 7.9 7.5 - 11.5 fL 05/30/2020 12:51 AM EDT [facility] Whole blood specimen (specimen) 05/30/2020 12:29 AM EDT 05/30/2020 12:44 AM EDT us María Galvez MD LAB BLOOD ORDERABLES Final Res ult [facility] [address] * (ABNORMAL) POC Glucose Monitoring Device (05/29/2020 11:14 PM EDT) [facility] POC Glucose Monitoring Device 164(H) 70 - 100 mg/dL 05/29/2020 11:14 PM EDT [facility] Blood specimen (specimen) 05/29/2020 11:14 PM EDT 05/29/2020 11:14 PM EDT us Aby Cavazos MD POINT OF CARE TEST ORDERABLES Fi nal Result Performing Organization Address City/[facility]/ZIP Co de Phone Number [facility] [address] * Hepatitis B Virus (HBV), PCR, Quant (05/29/2020 6:49 PM EDT) Pathologist [facility] Hep B Viral DNA IU/ML <20 IU/mL 06/02/2020 11:42 AM EDT [facility] Comment:Test methodology for HBV DNA quantification is an FDA-approved nucleic acid amplification assay. The Lower Limit of Quantitation (LLOQ) is 20 IU/mL. The linear range of the assay is 20- 170,000,000 IU/mL. log 10 HBV as IU/mL See Note log 10 IU/mL 06/02/2020 11:42 AM EDT [facility] Comment: HBV DNA has been detected, but not quantifiable. ??HBV DNA is below the LLoQ of the assay. ??Log IU/mL cannot be calculated Serum specimen (specimen) 05/29/2020 6:49 PM EDT 05/29/2020 9:30 PM EDT Melvina Castellon MD LAB BLOOD ORDERABLES Final Re sult [facility] [address] * X-ray Chest PA or AP (05/29/2020 4:36 PM EDT) Anatomical Region Laterality Modality Chest Radiographic Sobia ging 05/29/2020 4:14 PM EDT Impressions 05/29/2020 4:46 PM EDT IMPRESSION: No acute cardiopulmonary abnormality. Report Verified by: Manolo Rosenthal MD at 05/29/2020 4:46 PM EDT Narrative 05/29/2020 4:46 PM EDT EXAM: XR CHEST PA OR AP INDICATION: Other - Must Specify in Comments, ??possible aspiration, ?? TECHNIQUE: 1 view of the chest. DATE: 05/29/2020 4:14 PM EDT COMPARISON: May 28, 2020 FINDINGS: Medical Devices: None. Heart and Mediastinum: Cardiomediastinal silhouette is within normal limits. Lungs and Pleura: Lungs are clear. No pleural abnormalities evident. Bones and soft tissues: No acute abnormalities. Procedure Note Manolo Rosenthal MD - 05/29/2020 EXAM: XR CHEST PA OR AP INDICATION: Other - Must Specify in Comments, possible aspiration, TECHNIQUE: 1 view of the chest. DATE: 05/29/2020 4:14 PM EDT COMPARISON: May 28, 2020 FINDINGS: Medical Devices: None. Heart and Mediastinum: Cardiomediastinal silhouette is within normallimits. Lungs and Pleura: Lungs are clear. No pleural abnormalities evident. Bones and soft tissues: No acute abnormalities. IMPRESSION: No acute cardiopulmonary abnormality. Report Verified by: Manolo Rosenthal MD at 05/29/2020 4:46 PM EDT us William Fatima MD IMG DIAGNOSTIC IMAGING ORDER ASHISH Final Result * (ABNORMAL) POC Glucose Monitoring Device (05/29/2020 2:17 PM EDT) POC Glucose Monitoring Device 165(H) 70 - 100 mg/dL 05/29/2020 2:18 PM EDT [facility] Blood specimen (specimen) 05/29/2020 2:17 PM EDT 05/29/2020 2:18 PM EDT us Abbie Cifuentes MD POINT OF CARE TEST ORD ERABLES Final Result [facility] [address] * DILATATION (05/29/2020 2:09 PM EDT) 05/29/2020 2:09 PM EDT Narrative [facility] - 05/31/2020 12:57 PM EDT [id number] Procedure Date: 05/29/2020 2:09 PM ?Patient Name: Leoncio Rollins ? Date of : 1975 ?Admit Type: Inpatient Age: 45 ? Gender: Male Note Status: Finalized ?Attending MD: Rashid WINCHESTER , Procedure: ? Upper GI endoscopy Indications: ? Coffee-ground emesis Patient Profile: ? 45 y.o.male with SAL cirrhosis s/p OLT 09/2017 at , ? 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 recent spinal surgery (04/2020)?who presents with ? complaints of weakness and low backache noted to have ? discitis/osteomyelitis. Noted to have coffee ground ? emesis overnight with Hgb drop from baseline around 9 to ? 7.3. Here for evaluation of upper GI bleed. Providers: ? Bayron Gupta (Fellow) Referring MD: ? Medicines: ? General Anesthesia Complications: ? No immediate complications. Procedure: ? [...] procedure were verified by ? the physician in the procedure room. Mental Status ? Examination: alert and oriented. Airway Examination: ? normal oropharyngeal airway and neck mobility. ? Respiratory Examination: clear to auscultation. CV ? Examination: normal. Prophylactic Antibiotics: The ? patient does not require prophylactic antibiotics. Prior ? Anticoagulants: The patient has taken no previous ? anticoagulant or antiplatelet agents. ASA Grade ? Assessment: III - A patient with severe systemic ? disease. After reviewing the risks and benefits, the ? patient was deemed in satisfactory condition to undergo ? the procedure. The anesthesia plan was to use general ? anesthesia. Immediately prior to administration of ? medications, the patient was re-assessed for adequacy to ? receive sedatives. The heart rate, respiratory rate, ? oxygen saturations, blood pressure, adequacy of ? pulmonary ventilation, and response to care were ? monitored throughout the procedure. The physical status ? of the patient was re-assessed after the procedure. ? [...] ? the procedure well. ? Findings: ? Cirumferential adenomatous-like mucosal changes characterized by ? nodularity were found in the lower third of the esophagus at 35 cm. ? Biopsies were taken with a cold forceps for histology. Estimated blood ? loss was minimal. ? The exam of the esophagus was otherwise normal. ? Hematin (altered blood/iispzd-atgjdw-bozm material) was found in the ? gastric body. Also noted pill in the stomach. Lavage of the area was ? performed using a large amount, resulting in clearance with adequate ? visualization. ? There is no endoscopic evidence of bleeding in the entire examined ? stomach. ? The exam of the stomach was otherwise normal. ? The cardia and gastric fundus were normal on retroflexion. ? The duodenal bulb, first portion of the duodenum, second portion of the ? duodenum and third portion of the duodenum were normal. ? Impression: ?- Circumferential adenomatous-like mucosa in the ? esophagus. Biopsied. ? - Hematin (altered blood/vrgmah-betwqb-quon material) in ? the gastric body. No evidence of active bleeding. ? - Normal duodenal bulb, first portion of the duodenum, ? second portion of the duodenum and third portion of the ? duodenum. ? - Source of GI bleed was not identified. Possible ? bleeding from nodular mucosa which was friable after ? biopsy. Recommendation: ?- Return patient to hospital [facility] for ongoing care. ? - Clear liquid diet today. ? - Continue present medications. ? - Continue PPI PO daily. ? - Await pathology results. ? - Repeat upper endoscopy for surveillance based on ? pathology results. ? Procedure Code(s): ?? --- Professional --- ? 28473, GC, Esophagogastroduodenoscopy, flexible, ? transoral; with biopsy, single or multiple Diagnosis Code(s): ?? --- Professional --- ? K22.8, Other specified diseases of esophagus ? K92.2, Gastrointestinal hemorrhage, unspecified ? K92.0, Hematemesis CPT copyright 2019 [employer]. All rights reserved. The codes documented in this report are preliminary and upon [employer] officer review may be revised to meet current compliance requirements. Attending Participation: ? I was present for the entire viewing portion, including introduction and ? removal of the scope. ? Rashid WINCHESTER, 05/31/2020 12:57:08 PM Bayron Porter MD Bayron Barba, 05/29/2020 4:01:12 PM Total Procedure Duration Time 0 hours 22 minutes 17 seconds Scope In: 2:47:11 PM Scope Out: 3:09:28 PM ? [address] [place], [place] [address] us Attending Provider Unknown PROCEDURE/MINOR SURGI NI ORDERABLES Final Result [facility] [address] [facility] [place] [address] * (ABNORMAL) POC Glucose Monitoring Device (05/29/2020 11:44 AM EDT) POC Glucose Monitoring Device 159(H) 70 - 100 mg/dL 05/29/2020 11:45 AM EDT [facility] Blood specimen (specimen) 05/29/2020 11:44 AM EDT 05/29/2020 11:45 AM EDT us Abbie Cifuentes MD POINT OF CARE TEST ORD ERABLES Final Result Performing Organization Address [facility] de Phone Number [facility] [address] * (ABNORMAL) Protime-INR (05/29/2020 9:36 AM EDT) Protime 16.1(H) 12.1 - 15.1 seconds 05/29/2020 9:56 AM EDT [facility] INR 1.3(H) 0.9 - 1.1 05/29/2020 9:56 AM EDT [facility] Comment: RECOMMENDED THERAPEUTIC RANGES USING INR : ?Stable oral anticoagulant therapy: ? 2.0 - 3.0 ?Mechanical prosthetic heart valve: ? 2.5 - 3.5 ?Recurrent acute myocardial infarction: ? 2.5 - 3.5 Plasma specimen (specimen) 05/29/2020 9:36 AM EDT 05/29/2020 9:43 AM EDT us María Galvez MD LAB BLOOD ORDERABLES Final Res ult Performing Organization Address [facility] Co de Phone Number [facility] [address] [facility]. [address] * (ABNORMAL) Venous Blood Gas, Line/Syringe (05/29/2020 8:56 AM EDT) PH-Line Draw 7.30(L) 7.32 - 7.42 05/29/2020 8:59 AM EDT [facility] PCO2-Line Draw 44 41 - 51 mm Hg 05/29/2020 8:59 AM EDT [facility] PO2-Line Draw 45(H) 25 - 40 mm Hg 05/29/2020 8:59 AM EDT [facility] HCO3-Line Draw 22(L) 24 - 28 mmol/L 05/29/2020 8:59 AM EDT [facility] CO2 Content-Line Draw 23(L) 25 - 29 mmol/L 05/29/2020 8:59 AM EDT [facility] Base Excess-Line Draw -4.3(L) -2.0 - 3.0 mmol/L 05/29/2020 8:59 AM EDT [facility] %HBO2-Line Draw 70.1(H) 40.0 - 70.0 % 05/29/2020 8:59 AM EDT [facility] Carboxyhgb-Nemo e Draw 1.6 0.0 - 2.0 % 05/29/2020 8:59 AM EDT [facility] Comment: CARBOXYHEMOGLOBIN (CO) REFERENCE RANGES: Non-Smokers: ??<2 % ? Smokers: ??<8 % TOXIC: >20 % Methemoglobin- Line Draw 1.3 0.0 - 1.5 % 05/29/2020 8:59 AM EDT [facility] Reduced Hemoglobin-Nemo e Draw 27.0(H) 0.0 - 5.0 % 05/29/2020 8:59 AM EDT [facility] Venous (qualifier value) 05/29/2020 8:56 AM EDT 05/29/2020 8:58 AM EDT us María Galvez MD LAB BLOOD ORDERABLES Final Res ult [facility] [address] [place] [address], [facility] * (ABNORMAL) CBC (05/29/2020 12:07 AM EDT) WBC 8.3 3.8 - 10.8 10E3/uL 05/29/2020 12:38 AM EDT [facility] RBC 2.51(L) 4.20 - 5.80 10E6/uL 05/29/2020 12:38 AM EDT [facility] Hemoglobin 7.3(L) 13.2 - 17.1 g/dL 05/29/2020 12:38 AM EDT [facility] Hematocrit 23.4(L) 38.5 - 50.0 % 05/29/2020 12:38 AM EDT [facility] MCV 93.2 80.0 - 100.0 fL 05/29/2020 12:38 AM EDT [facility] MCH 29.0 27.0 - 33.0 pg 05/29/2020 12:38 AM EDT [facility] MCHC 31.1(L) 32.0 - 36.0 g/dL 05/29/2020 12:38 AM EDT [facility] RDW 15.2(H) 11.0 - 15.0 % 05/29/2020 12:38 AM EDT [facility] Platelets 399 140 - 400 10E3/uL 05/29/2020 12:38 AM EDT [facility] MPV 8.2 7.5 - 11.5 fL 05/29/2020 12:38 AM EDT [facility] Whole blood specimen (specimen) 05/29/2020 12:07 AM EDT 05/29/2020 12:31 AM EDT Ghassan Coffey MD LAB BLOOD ORDERABLES Final R esult Performing Organization Address City/State/[facility] Co de Phone Number [facility] [address] * Surgical Pathology Exam (05/29/2020 12:00 AM EDT) Tissue specimen (specimen) TISSUE SPECIMEN / Unknown 05/29/2020 3:05 PM EDT Comment:Dat ribeiro Narrative [facility] - 05/29/2020 12:00 AM EDT CASE: [id number] PATIENT: LEONCIO ROLLINS Clinical History: ?? EGD with biopsy Pre-Operative Diagnosis: coffee ground emesis Post-Operative Diagnosis: ? hiatal hernia, GE junction nodule Specimen(s) Submitted: ?? A. GE junction nodule biopsies CPT Code(s): ?? 88119 X 1; 32582 X 1; 36700 X 1 Additional Information: FINAL DIAGNOSIS: Gastroesophageal junction, nodule, biopsy: - Squamocolumnar junctional mucosa with severe acute and chronic active inflammation, associated with prominent foveolar hyperplasia. - No evidence of intestinal metaplasia, dysplasia, or malignancy. - GMS stain for fungi and immunostain for CMV pending and results will be reported in an addendum. Gross Description: Received in formalin, labeled with the patient's name Leoncio Rollins Jr and GE junction nodule biopsies are five pieces of pink-gaytan tissue ranging 0.1 to 0.2 cm. ??The specimen is filtered into a biopsy bag and submitted entirely in cassette [id number]. ??(NAVNEET Claire (ASCP)/bkp) Microscopic Description: 2 HE slides are examined. I, the attending pathologist, have personally reviewed all prosector/resident work and pathology slides to determine final diagnosis. Analyte-specific reagents (ASRs) were used in testing. These tests were developed and their performance characteristics determined by [facility] - Pathology. They have not been cleared or [...] NICHELLE ERICKSON MD, PhD Pathologist Electronically signed 06/04/2020 03:45:47 PM ?? The Pathologist signing this report is located at [facility], [address] [place] [address], [place], [address], , CLIA ID: [id number] ADDENDUM: 06/05/20 - GMS stain demonstrates fungal yeasts, morphologically suggesting Luz species. - Immunostain for CMV is negative. Note: The staining results are notified to Tenzin Madrid and Katharine through [employer] 06/05/20. Addendum #1 performed by NICHELLE ERICKSON MD, PhD Pathologist Electronically signed 06/05/2020 09:39:32 AM ?? The Pathologist signing this report is located at [facility], [address] [place] [address], [place], [place], [facility], , CLIA ID: [id number] us Rashid Winchester MD PATHOLOGY/CYTOLOGY ORDERABLES Ed ited Result - Final [facility] * (ABNORMAL) POC Glucose Monitoring Device (05/28/2020 6:01 PM EDT) POC Glucose Monitoring Device 156(H) 70 - 100 mg/dL 05/28/2020 6:01 PM EDT [facility] Blood specimen (specimen) 05/28/2020 6:01 PM EDT 05/28/2020 6:01 PM EDT Abbie Cifuentes MD POINT OF CARE TEST ORD ERABLES Final Result Performing Organization Address [facility] Co de Phone Number [facility] [address] [place] [address] * Antibody identification (05/28/2020 5:02 PM EDT) Antibody Id. #1 Anti-C 05/28/2020 5:02 PM EDT [facility] Antibody Id. #2 Anti-D 05/28/2020 5:02 PM EDT [facility] Blood specimen (specimen) 05/28/2020 5:02 PM EDT 05/28/2020 5:02 PM EDT María Galvez MD BLOOD BANK TEST ORDERABLES Fin al Result Performing Organization Address City/[facility]/ZIP Co de Phone Number [facility] [address] [place] [address] * ELIUD Anti-IgG (05/28/2020 5:01 PM EDT) ELIUD IgG Negative 05/28/2020 5:01 PM EDT [facility] Blood specimen (specimen) 05/28/2020 5:01 PM EDT 05/28/2020 5:01 PM EDT María Galvez MD BLOOD BANK TEST ORDERABLES Fin al Result Performing Organization Address [facility] de Phone Number [address] * (ABNORMAL) Hepatitis B Surface Antibody, Quantitati (05/28/2020 3:41 PM EDT) Pathologist [facility] HBSAB NUMBER 34.89(H) 0.00 - 7.99 mIU/mL 05/28/2020 10:16 PM EDT [facility] Hep B S Ab Reactive( A) Nonreactive 05/28/2020 10:16 PM EDT [facility] Serum specimen (specimen) 05/28/2020 3:41 PM EDT 05/28/2020 6:23 PM EDT Narrative [facility] - 05/29/2020 11:26 AM EDT Individual is considered immune to HBV infection. The results of the multi-test panel are inconsistent. Repeat testing is recommended. us Aris Moctezuma MD LAB BLOOD ORDERABLES Final Resul t Performing Organization Address [facility] de Phone Number [address] * Hepatitis B Core Antibody (05/28/2020 3:41 PM EDT) Pathologist [facility] Hep B Core Total Ab Nonreactive Nonreactive 05/28/2020 8:58 PM EDT [facility] Comment:Health Department no tified in accordance with reportable infectious disease guidelines. Serum specimen (specimen) 05/28/2020 3:41 PM EDT 05/28/2020 6:23 PM EDT [facility] - 05/29/2020 11:26 AM EDT A nonreactive final interpretation indicates that anti-HBc antibodies were not detected in the sample; it is possible that the individual is not infected with HBV. The results of the multi-test panel are inconsistent. Repeat testing is recommended. Aris Moctezuma MD LAB BLOOD ORDERABLES Final Resul t [facility] [address] [facility]. [address] * Hepatitis A IgM (05/28/2020 3:41 PM EDT) Hep A IgM Nonreactive Nonreactive 05/28/2020 9:19 PM EDT [facility] Serum specimen (specimen) 05/28/2020 3:41 PM EDT 05/28/2020 6:23 PM EDT [facility] - 05/28/2020 9:19 PM EDT IgM anti-HAV not detected. Does not exclude the possibility of exposure to or infection with HAV. ??Levels of IgM anti-HAV may be below the cut-off in early infection. Aris Moctezuma MD LAB BLOOD ORDERABLES Final Resul t Performing Organization Address [facility] Co de Phone Number [facility] [address] [facility]. [address] * Hepatitis C Antibody (05/28/2020 3:41 PM EDT) HCV Ab Nonreactive Nonreactive 05/28/2020 9:03 PM EDT [facility] Comment:Health Department no tified in accordance with reportable infectious disease guidelines. Serum specimen (specimen) 05/28/2020 3:41 PM EDT 05/28/2020 6:23 PM EDT Narrative [facility] - 05/28/2020 9:03 PM EDT Antibodies to HCV not detected; does not exclude the possibility of exposure to HCV. Aris Moctezuma MD LAB BLOOD ORDERABLES Final Resul t Performing Organization Address [facility] Co de Phone Number [facility] [place] [facility] [address] [facility]. [address] * (ABNORMAL) Hepatitis B surface antigen (05/28/2020 3:41 PM EDT) Hepatitis B Surface Ag Confirm Confirmed Positive Confirmed Positive 05/29/2020 11:26 AM EDT [facility] Hep B Surface Ag Reactive(A) Nonreactive 05/29/2020 11:26 AM EDT [facility] [facility] Comment:Health Department no tified in accordance with reportable infectious disease guidelines. Serum specimen (specimen) 05/28/2020 3:41 PM EDT 05/28/2020 6:23 PM EDT Narrative [facility] [facility] - 05/29/2020 11:26 AM EDT The results of the multi-test panel are inconsistent. Repeat testing is recommended. Specimen is considered repeatedly Reactive. ??Confirmed using the [employer] HBsAg qualitative confirmation assay. us Aris Moctezuma MD LAB BLOOD ORDERABLES Final Resul t Performing Organization Address [facility] Co de Phone Number [facility] [address] [place] [address]. [address] * Vancomycin, random (05/28/2020 3:41 PM EDT) Pathologist [facility] Vancomycin Random 16.3 ug/mL 05/28/2020 4:20 PM EDT [facility] [place] [facility] Comment:Reference range not established for this test. Plasma specimen (specimen) 05/28/2020 3:41 PM EDT 05/28/2020 3:53 PM EDT us Cristóbal Fiath MD LAB BLOOD ORDERABLES Fi nal Result [facility] [address] [place] [address]. [address] * #1 Blood culture-Peripheral (05/28/2020 3:41 PM EDT) Pathologist [facility] Culture Result No Growth After 5 Days [facility] Blood specimen (specimen) BLOOD SPECIMEN / Unknown 05/28/2020 3:41 PM EDT 05/28/2020 4:07 PM EDT us María Galvez MD MICROBIOLOGY - GENERAL ORDERAB LES Final Result [facility] [address] [place] [address], [facility] * 2019 Novel Coronavirus (CoVID-19), FRANKLYN-B (05/28/2020 2:19 PM EDT) SARS-CoV-2 Not Detected Not Detected 05/29/2020 10:53 AM EDT [facility] Comment: This test is an amplified nucleic acid assay performed on a real time PCR platform. ??This test was developed and its performance characteristics determined by the [facility]. ??This test has not been [...] been sent to the [facility] in accordance with state requirements. ??For a healthcare provider fact sheet, see https://www.fda.gov/media/702867/download. ??For a patient fact sheet, see https://www.fda.gov/media/193698/download. Test LOINC ordered 00297-6 2019 10:53 AM EDT [facility] Device identifier [employer] COVID-19 Combo Kit_EUA 05/29/2020 10:53 AM EDT [facility] First Test No 05/29/2020 10:53 AM EDT [facility] LAB Healthcare employee No 05/29/2020 10:53 AM EDT [facility] Symptomatic No 05/29/2020 10:53 AM EDT [facility] Hospitalized Yes 05/29/2020 10:53 AM EDT [facility] In ICU No 05/29/2020 10:53 AM EDT [facility] Congregate Care Resident No 05/29/2020 10:53 AM EDT [facility] No 05/29/2020 10:53 AM EDT [facility] Nasopharyngeal swab (specimen) NASOPHARYNGEAL STRUCTURE / Unknown 05/28/2020 2:19 PM EDT 05/28/2020 3:20 PM EDT Narrative [facility] - 05/29/2020 10:53 AM EDT Does the patient have symptoms of Covid-19 (eg. Fever, dyspnea, cough, loss of smell)?->No Does the patient urgently (in <24 hours) require a surgery, invasive procedure, or cardiac stress test?->No Is the patient being admitted to labor and delivery in active labor?->No Does the patient fit any of these categories? (select all that apply)->None of the above María Galvez MD BODY FLUIDS AND STOOLS ORDERAB LES Final Result Performing Organization Address City/[facility]/ZIP Co de Phone Number [facility] [address] * #2 Blood culture-Peripheral (05/28/2020 2:04 PM EDT) Culture Result No Growth After 5 Days [facility] Blood specimen (specimen) BLOOD SPECIMEN / Unknown 05/28/2020 2:04 PM EDT 05/28/2020 3:06 PM EDT María Galvez MD MICROBIOLOGY - GENERAL ORDERAB LES Final Result Performing Organization Address [facility]/ZIP Co de Phone Number [facility] [address] * Antibody Screen (05/28/2020 2:04 PM EDT) Antibody Screen Positive 05/28/2020 3:08 PM EDT [facility] Blood specimen (specimen) 05/28/2020 2:04 PM EDT 05/28/2020 2:19 PM EDT Narrative [facility] - 05/28/2020 3:46 PM EDT Testing performed by [facility] Transfusion Service us María Galvez MD BLOOD BANK TEST ORDERABLES Fin al Result Performing Organization Address [facility] Co de Phone Number [facility] [address] * ABO/Rh (05/28/2020 2:04 PM EDT) ABO Grouping O 05/28/2020 2:56 PM EDT [facility] Rh Type Negative 05/28/2020 2:56 PM EDT [facility] Blood specimen (specimen) 05/28/2020 2:04 PM EDT 05/28/2020 2:19 PM EDT Result Yuri Galvez MD BLOOD BANK TEST ORDERABLES Fin al Result Performing Organization Address [facility] Co de Phone Number [facility] [address] [facility] * Lactic Acid (05/28/2020 2:04 PM EDT) Lactate 0.8 0.5 - 2.2 mmol/L 05/28/2020 3:04 PM EDT [facility] Plasma specimen (specimen) 05/28/2020 2:04 PM EDT 05/28/2020 2:18 PM EDT Result Yuri Galvez MD LAB BLOOD ORDERABLES Final Res ult Performing Organization Address [facility] Co de Phone Number [facility] [address] [facility]. [address] * (ABNORMAL) C-reactive protein (05/28/2020 2:04 PM EDT) CRP 190.6(H) 1.0 - 10.0 mg/L 05/28/2020 2:43 PM EDT [facility] Plasma specimen (specimen) 05/28/2020 2:04 PM EDT 05/28/2020 2:[address] [facility] Cristóbal Faith MD LAB BLOOD ORDERABLES Fi nal Result Performing Organization Address [facility] de Phone Number [facility] [address] [facility]. [address] * (ABNORMAL) Sed Rate (05/28/2020 2:04 PM EDT) Sed Rate 62(H) 0 - 15 mm/hr 05/28/2020 2:28 PM EDT [facility] Whole blood specimen (specimen) 05/28/2020 2:04 PM EDT 05/28/2020 2:[address] [facility] Cristóbal Faith MD LAB BLOOD ORDERABLES Fi nal Result Performing Organization Address [facility] de Phone Number [facility] [address] [facility]. [address] * (ABNORMAL) Protime-INR (05/28/2020 2:04 PM EDT) Protime 16.0(H) 12.1 - 15.1 seconds 05/28/2020 2:48 PM EDT [facility] INR 1.3(H) 0.9 - 1.1 05/28/2020 2:48 PM EDT [facility] Comment: RECOMMENDED THERAPEUTIC RANGES USING INR : ?Stable oral anticoagulant therapy: ? 2.0 - 3.0 ?Mechanical prosthetic heart valve: ? 2.5 - 3.5 ?Recurrent acute myocardial infarction: ? 2.5 - 3.5 Plasma specimen (specimen) 05/28/2020 2:04 PM EDT 05/28/2020 2:13 PM EDT Cristóbal Faith MD LAB BLOOD ORDERABLES Fi nal Result Performing Organization Address [facility] Co de Phone Number [facility] [address] * (ABNORMAL) Hepatic Function Panel (05/28/2020 2:04 PM EDT) Total Bilirubin 0.4 0.0 - 1.5 mg/dL 05/28/2020 2:43 PM EDT [facility] Bilirubin, Direct 0.12 0.00 - 0.40 mg/dL 05/28/2020 2:43 PM EDT [facility] AST 12(L) 13 - 39 U/L 05/28/2020 2:43 PM EDT [facility] ALT 18 7 - 52 U/L 05/28/2020 2:43 PM EDT [facility] Alkaline Phosphatase 114 36 - 125 U/L 05/28/2020 2:43 PM EDT [facility] Total Protein 7.0 6.4 - 8.9 g/dL 05/28/2020 2:43 PM EDT [facility] Albumin 3.6 3.5 - 5.7 g/dL 05/28/2020 2:43 PM EDT [facility] Bilirubin, Indirect 0.28 0.00 - 1.10 mg/dL 05/28/2020 2:43 PM EDT [facility] Plasma specimen (specimen) 05/28/2020 2:04 PM EDT 05/28/2020 2:13 PM EDT Cristóbal Faith MD LAB BLOOD ORDERABLES Fi nal Result Performing Organization Address [facility] Co de Phone Number [facility] [address] * Magnesium (05/28/2020 2:04 PM EDT) Magnesium 1.9 1.5 - 2.5 mg/dL 05/28/2020 2:43 PM EDT [facility] Plasma specimen (specimen) 05/28/2020 2:04 PM EDT 05/28/2020 2:13 PM EDT us Cristóbal Faith MD LAB BLOOD ORDERABLES Fi nal Result [facility] [address] [place] [address], [facility] * (ABNORMAL) Renal Function Panel w/EGFR (05/28/2020 2:04 PM EDT) Sodium 137 133 - 146 mmol/L 05/28/2020 2:43 PM EDT [facility] Potassium 5.5(H) 3.5 - 5.3 mmol/L 05/28/2020 2:43 PM EDT [facility] Chloride 96(L) 98 - 110 mmol/L 05/28/2020 2:43 PM EDT [facility] CO2 23 21 - 33 mmol/L 05/28/2020 2:43 PM EDT [facility] Anion Gap 18(H) 3 - 16 mmol/L 05/28/2020 2:43 PM EDT [facility] BUN 88(H) 7 - 25 mg/dL 05/28/2020 2:43 PM EDT [facility] Creatinine 13.63(H) 0.60 - 1.30 mg/dL 05/28/2020 2:43 PM EDT [facility] Glucose 115(H) 70 - 100 mg/dL 05/28/2020 2:43 PM EDT [facility] Calcium 9.5 8.6 - 10.3 mg/dL 05/28/2020 2:43 PM EDT [facility] Phosphorus 8.3(H) 2.1 - 4.7 mg/dL 05/28/2020 2:43 PM EDT [facility] Albumin 3.6 3.5 - 5.7 g/dL 05/28/2020 2:43 PM EDT [facility] Osmolality, Calculated 312(H) 278 - 305 mOsm/kg 05/28/2020 2:43 PM EDT [facility] eGFR AA CKD-EPI 4 See note. 0 2:43 PM EDT [facility] Comment: As of 2015 the [...] new equation to estimate glomerular filtration rate. ??Russell [employer] Med. 2009:150(9):604-12 eGFR NONAA CKD-EPI 4 See note. 05/28/2020 2:43 PM EDT [facility] Comment: As of 2015 the [...] new equation to estimate glomerular filtration rate. ??[facility] [employer]. 2009:150(9):604-12 Plasma specimen (specimen) 05/28/2020 2:04 PM EDT 05/28/2020 2:13 PM EDT Cristóbal Faith MD LAB BLOOD ORDERABLES Fi nal Result [facility] [address] [place] [address], [facility] * (ABNORMAL) CBC (05/28/2020 2:04 PM EDT) WBC 6.9 3.8 - 10.8 10E3/uL 05/28/2020 3:11 PM EDT [facility] RBC 2.62(L) 4.20 - 5.80 10E6/uL 05/28/2020 3:11 PM EDT [facility] Hemoglobin 7.9(L) 13.2 - 17.1 g/dL 05/28/2020 3:11 PM EDT [facility] Hematocrit 24.2(L) 38.5 - 50.0 % 05/28/2020 3:11 PM EDT [facility] MCV 92.2 80.0 - 100.0 fL 05/28/2020 3:11 PM EDT [facility] MCH 30.1 27.0 - 33.0 pg 05/28/2020 3:11 PM EDT [facility] MCHC 32.7 32.0 - 36.0 g/dL 05/28/2020 3:11 PM EDT [facility] RDW 14.8 11.0 - 15.0 % 05/28/2020 3:11 PM EDT [facility] Platelets 340 140 - 400 10E3/uL 05/28/2020 3:11 PM EDT [facility] MPV 7.5 7.5 - 11.5 fL 05/28/2020 3:11 PM EDT [facility] Whole blood specimen (specimen) 05/28/2020 2:04 PM EDT 05/28/2020 2:13 PM EDT Cristóbal Faith MD LAB BLOOD ORDERABLES Fi nal Result Performing Organization Address [facility] Co de Phone Number [facility] [address] * X-ray Comparison Images (05/28/2020 1:41 PM EDT) Narrative EXTERNAL - 05/28/2020 1:41 PM EDT Images associated with this accession number were presented to us for comparison to an examination performed here. María SCOTT DIAGNOSTIC IMAGING ORDERAB LES Final Result Performing Organization Address [facility] Co de Phone Number EXTERNAL * X-ray Comparison Images (05/28/2020 1:41 PM EDT) Narrative EXTERNAL - 05/28/2020 1:41 PM EDT Images associated with this accession number were presented to us for comparison to an examination performed here. us María SCOTT DIAGNOSTIC IMAGING ORDERAB LES Final Result Performing Organization Address [facility] Co de Phone Number EXTERNAL * X-ray Comparison Images (05/28/2020 1:40 PM EDT) Narrative EXTERNAL - 05/28/2020 1:40 PM EDT Images associated with this accession number were presented to us for comparison to an examination performed here. María Galvez MD IMG DIAGNOSTIC IMAGING ORDERAB LES Final Result Performing Organization Address [facility] de Phone Number EXTERNAL * ECG 12 lead (MUSE) (05/28/2020 1:29 PM EDT) 05/28/2020 1:29 PM EDT Narrative MUSE - 05/29/2020 1:53 PM EDT Ventricular Rate: ??102 ??BPM Atrial Rate: ??102 ??BPM P-R Interval: ??172 ??ms QRS Duration: ??100 ??ms QT: ??352 ??ms QTc: ??458 ??ms P Boyds: ??46 ??degrees R Boyds: ??53 ??degrees T Boyds: ??98 ??degrees Diagnosis Line: ?? POOR DATA QUALITY, INTERPRETATION MAY BE ADVERSELY AFFECTED ^ SINUS TACHYCARDIA ^ NONSPECIFIC T WAVE CHANGE ^ ABNORMAL ECG ^ COMPARED TO THE ECG OF 21-JUL-2019 01:50, ^ THERE IS NO SIGNIFICANT CHANGE ^ Confirmed by Carol PEREZ, PHYLLIS ([id number]) on 05/29/2020 1:53:27 PM María Galvez MD ECG ORDERABLES Final Result Performing Organization Address [facility] Phone Number MUSE documented in this encounter Visit Diagnoses Diagnosis Anemia, unspecified type ESRD (end stage renal disease) ([facility]-H[facility]) End stage renal disease Gastroesophageal reflux disease, unspecified whether esophagitis present Immunosuppression (CMS-HCC) Liver transplant recipient (CMS-HCC) Subacute osteomyelitis, other site (CMS-HCC) Hematemesis, presence of nausea not specified Osteomyelitis, unspecified site, unspecified type (CMS-HCC) Liver transplanted (CMS-HCC) Liver replaced by transplant Coffee ground emesis Hematemesis History of liver transplant (CMS-HCC) Liver replaced by transplant Vertebral osteomyelitis (CMS-HCC) Unspecified osteomyelitis, other specified site Liver transplanted (CMS-HCC) Liver replaced by transplant Anemia, unspecified documented in this encounter Administered Medications Inactive Administered Medications - up to 3 most recent administrations Medication Order MAR Action Action Date Dose Rate Site acetaminophen (TYLENOL) tablet 975 mg 975 mg, Oral, Every 6 hours, First dose (after last modification) on 06/03/20 at 1900, Maximum dose of acetaminophen is 4000 mg (4 grams) from all sources in 24 hours. Given 06/08/2020 5:11 PM EDT 975 mg Given 06/08/2020 8:20 AM EDT 975 mg Given 06/08/2020 1:53 AM EDT 975 mg ALPRAZolam (XANAX) tablet 0.25 mg 0.25 mg, Oral, Once, On Mon06/02/20 at 1630, For 1 dose Given 06/02/2020 4:47 PM EDT 0.25 mg ALPRAZolam (XANAX) tablet 0.5 mg 0.5 mg, Oral, Daily as needed, Anxiety, before dialysis. Please contact MD before giving otherwise, Starting on 05/30/20 at 1223 Given 06/08/2020 12:42 PM EDT 0.5 mg ALPRAZolam (XANAX) tablet 1 mg 1 mg, Oral, Daily as needed, Anxiety, before dialysis, Starting on Bobbi 05/28/20 at 1411 Given 05/30/2020 3:37 AM EDT 1 mg Given 05/29/2020 8:20 PM EDT 1 mg Given 05/28/2020 9:09 PM EDT 1 mg carBAMazepine (TEGRETOL) tablet 200 mg 200 mg, Oral, At Bedtime (2099), First dose on Bobbi 05/28/20 at 2100 Given 06/07/2020 8:16 PM EDT 200 mg Given 06/06/2020 8:46 PM EDT 200 mg Given 06/05/2020 9:41 PM EDT 200 mg cefepime (MAXIPIME) 1 g in sodium chloride 0.9% 50 mL IVPB ADDaptor 1 g, Intravenous, Administer over 240 Minutes, Every 24 hours, First dose on Bobbi 05/28/20 at 1400, For Hemodialysis patients - on dialysis days, please administer Cefepime dose after completion of hemodialysis. Use ADDaptor product - Mix Thoroughly Before Administration, Indication? Infection-Suspected, Site of diagnosed infections (select all that apply): Bloodstream New Bag 05/31/2020 4:05 PM EDT 1 g 12.5 mL/hr New Bag 05/30/2020 2:49 PM EDT 1 g 12.5 mL/hr New Bag 05/29/2020 10:43 PM EDT 1 g 12.5 mL/hr cefepime (MAXIPIME) 1 g in sodium chloride 0.9% 50 mL IVPB ADDaptor 1 g, Intravenous, Administer over 240 Minutes, Every 24 hours, First dose (after last reorder) on Mon06/02/20 at 0030, For Hemodialysis patients - on dialysis days, please administer Cefepime dose after completion of hemodialysis. Use ADDaptor product - Mix Thoroughly Before Administration, Indication? Infection-Suspected, Site of diagnosed infections (select all that apply): Bloodstream New Bag 06/05/2020 3:16 AM EDT 1 g 12.5 m L/hr New Bag 06/04/2020 1:52 AM EDT 1 g 12.5 mL/hr New Bag 06/03/2020 12:18 AM EDT 1 g 12.5 mL/hr cycloSPORINE modified (NEORAL) capsule 50 mg 50 mg, Oral, 2 times daily, First dose on Bobbi 05/28/20 at 2100, LEVEL 2 HAZARDOUS MEDICATION Given 06/05/2020 9: 52 AM EDT 50 mg Given 06/04/2020 9:42 PM EDT 50 mg Given 06/04/2020 8:59 AM EDT 50 mg cycloSPORINE modified (NEORAL) capsule 50 mg 50 mg, Oral, Every morning, First dose (after last modification) on 06/06/20 at 0900, LEVEL 2 HAZARDOUS MEDICATION Given 06/07/2020 9:02 AM EDT 50 mg Given 06/06/2020 9:26 AM EDT 50 mg cycloSPORINE modified (NEORAL) capsule 75 mg 75 mg, Oral, At Bedtime (2099), First dose on Mon06/05/20 at 2100, LEVEL 2 HAZARDOUS MEDICATION Given 06/06/2020 8:46 PM EDT 75 mg Given 06/05/2020 9:39 PM EDT 75 mg cycloSPORINE modified (NEORAL) capsule 75 mg 75 mg, Oral, 2 times daily, First dose (after last modification) on 06/07/20 at 2100, LEVEL 2 HAZARDOUS MEDICATION Given 06/08/2020 8:20 AM EDT 75 mg Given 06/07/2020 8:15 PM EDT 75 mg dextrose 50 % in water (D50W) iv Syrg 25 mL 25 mL, Intravenous, Every 15 min PRN, for glucose < 70 and alert but can not be corrected, orally or via feeding tube, Starting on Mon05/28/20 at 1415, Recheck blood sugar in 15 minutes and repeat treatment if glucose still < 70. dextrose 50 % in water (D50W) iv Syrg 50 mL 50 mL, Intravenous, Every 15 min PRN, for glucose < 70 and not alert, Starting on Mon05/28/20 at 1415, Recheck glucose in 15 minutes and repeat treatment if glucose still < 70. entecavir (BARACLUDE) tablet 0.5 mg 0.5 mg, Oral, Every 7 days, First dose on Mon06/02/20 at 0900, ADMINISTER ON EMPTY STOMACH (2 HOURS BEFORE OR AFTER MEALS). LEVEL 2 HAZARDOUS MEDICATION Given 06/02/2020 1:08 PM EDT 0.5 mg epoetin giancarlo-epbx (RETACRIT) 3,000 unit/mL solution 6,000 Units 6,000 Units, Subcutaneous, Every Monday, Monday, Monday (Once per day on Mon), Indications: Anemia in Chronic Kidney Disease, First dose (after last modification) on Mon06/03/20 at 0900Indications:Anemia in Chronic Kidney Disease Given 06/08/2020 10:08 AM EDT 6,000 Units Abdominal Tissue Given 06/05/2020 2:09 PM EDT 6,000 Units A bdominal Tissue Given 06/03/2020 10:39 AM EDT 6,000 Units Right Arm famotidine (PEPCID) tablet 20 mg 20 mg, Oral, Daily, First dose on Mon05/28/20 at 1430 Given 05/28/2020 4:27 PM EDT 20 mg fentaNYL (SUBLIMAZE) injection Intravenous, Code/trauma medication, Starting on Mon06/02/20 at 0826, For 1 dose Given 06/02/2020 8:26 AM EDT 50 mcg fentaNYL (SUBLIMAZE) injection Intravenous, Code/trauma medication, Starting on Mon06/02/20 at 0837, For 1 dose Given 06/02/2020 8:37 AM EDT 50 mcg fentaNYL (SUBLIMAZE) injection Intravenous, Code/trauma medication, Starting on Mon06/02/20 at 0856, For 1 dose Given 06/02/2020 8:56 AM EDT 50 mcg fentaNYL (SUBLIMAZE) injection Intravenous, Code/trauma medication, Starting on Mon06/03/20 at 0829, For 1 dose Given 06/03/2020 8:29 AM EDT 50 mcg fluconazole (DIFLUCAN) tablet 200 mg 200 mg, Oral, Daily, First dose on Mon06/07/20 at 1330, For 14 days Given 06/08/2020 8:20 AM EDT 200 mg Given 06/07/2020 5:36 PM EDT 200 mg gabapentin (NEURONTIN) capsule 200 mg 200 mg, Oral, Daily, First dose on Mon06/01/20 at 0900 Given 06/02/2020 1:08 PM EDT 200 mg gabapentin (NEURONTIN) capsule 200 mg 200 mg, Oral, At Bedtime (2100), First dose (after last modification) on Mon06/04/20 at 2100 Given 06/07/2020 8:18 PM EDT 200 mg Given 06/06/2020 8:48 PM EDT 200 mg Given 06/05/2020 9:35 PM EDT 200 mg gabapentin (NEURONTIN) capsule 300 mg 300 mg, Oral, Daily, First dose on Mon05/28/20 at 1430 Given 05/29/2020 8:38 AM EDT 300 mg glucose chewable tablet 12 g 12 g, Oral, Every 15 min PRN, Low blood sugar, for glucose 50-70 mg/dL, Starting on Mon05/28/20 at 1415, Recheck glucose in 15 minutes and if glucose still < 70, repeat treatment. DO NOT ADMINISTER VIA FEEDING TUBE heparin (porcine) injection 5,000 Units 5,000 Units, Subcutaneous, Every 8 hours scheduled (3 times per day), First dose on Mon05/28/20 at 1330 Given 06/01/2020 5:07 AM EDT 5,000 Units Abdominal Tissue Given 05/31/2020 8:41 PM EDT 5,000 Units R ight Arm Given 05/31/2020 1:41 PM EDT 5,000 Units R ight Arm heparin (porcine) injection 5,000 Units 5,000 Units, Subcutaneous, Every 8 hours scheduled (3 times per day), First dose on Mon06/03/20 at 2100 Given 06/04/2020 1:22 PM EDT 5,000 Units Abdominal Tissue Given 06/04/2020 6:47 AM EDT 5,000 Units A bdominal Tissue Given 06/03/2020 8:52 PM EDT 5,000 Units A bdominal Tissue hydrALAZINE (APRESOLINE) tablet 100 mg 100 mg, Oral, 3 times daily, First dose on Mon05/28/20 at 1430 Given 05/29/2020 8:39 AM EDT 100 mg Given 05/28/2020 4:28 PM EDT 100 mg hydrALAZINE (APRESOLINE) tablet 100 mg 100 mg, Oral, Every 8 hours scheduled (3 times per day), First dose on Mon06/01/20 at 2100 Given 06/08/2020 5:11 PM EDT 100 mg Given 06/08/2020 4:17 AM EDT 100 mg Given 06/07/2020 8:18 PM EDT 100 mg HYDROmorphone (DILAUDID) 0.5 mg/0.5 mL injection Syrg Starting on Mon05/29/20 at 1934, For 1 dose, Created by [employer] HYDROmorphone (DILAUDID) injection Syrg 0.2 mg 0.2 mg, Intravenous, Every 5 min PRN, severe pain (NRS 7-10), and POSS score EQUAL to 3, Starting on Mon05/29/20 at 1437, For 48 hours, If on IV and PO pain meds, use IV only if patient is unable to take oral medications. May alternate HYDROmorphone with Fentanyl (if ordered) as needed for uncontrolled pain. If POSS score is 4, call physician. May administer in PACU or prior to discharge., PACU Given 05/29/2020 7:43 PM EDT 0.2 mg HYDROmorphone (DILAUDID) injection Syrg 0.3 mg 0.3 mg, Intravenous, Once, On Mon06/03/20 at 1830, For 1 dose Given 06/03/2020 6:41 PM EDT 0.3 mg HYDROmorphone (DILAUDID) injection Syrg 0.5 mg 0.5 mg, Intravenous, Once, On Mon05/28/20 at 1330, For 1 dose Given 05/28/2020 2:12 PM EDT 0.5 mg HYDROmorphone (DILAUDID) injection Syrg 0.5 mg 0.5 mg, Intravenous, Once, On Mon06/01/20 at 0930, For 1 dose Given 06/01/2020 10:42 AM EDT 0.5 mg HYDROmorphone (DILAUDID) injection Syrg 0.5 mg 0.5 mg, Intravenous, Every 6 hours PRN, moderate pain (NRS-4-6), severe pain (NRS 7-10), Starting on 06/01/20 at 1705, For 3 days 8 hours Given 06/04/2020 4:47 PM EDT 0.5 mg Given 06/04/2020 8:59 AM EDT 0.5 mg Given 06/04/2020 2:42 AM EDT 0.5 mg HYDROmorphone (DILAUDID) injection Syrg 0.5 mg 0.5 mg, Intravenous, Every 6 hours PRN, moderate pain (NRS-4-6), severe pain (NRS 7-10), Starting on Mon06/05/20 at 1803, For 3 days 1 hour Given 06/08/2020 3:19 PM EDT 0.5 mg Given 06/08/2020 8:32 AM EDT 0.5 mg Given 06/07/2020 8:24 PM EDT 0.5 mg insulin lispro (humaLOG) injection 0-12 Units 0-12 Units, Subcutaneous, 3 times daily before meals, First dose on Bobbi 05/28/20 at 1430, HIGH ALERT MEDICATION Given 05/29/2020 12:44 PM EDT 2 Units Abdo alice Tissue Given 05/28/2020 6:03 PM EDT 2 Units Ab dominal Tissue insulin lispro (humaLOG) injection 0-5 Units 0-5 Units, Subcutaneous, 3 times daily before meals, First dose on 05/31/20 at 0900, HIGH ALERT MEDICATION Given 06/08/2020 5:13 PM EDT 2 Units Right Arm Given 06/08/2020 10:14 AM EDT 1 Units A bdominal Tissue Given 06/07/2020 5:58 PM EDT 1 Units Ri ght Arm lactulose (CEPHULAC) oral soln Soln 20 g 20 g, Oral, Once, On Bobbi 05/28/20 at 1930, For 1 dose, FOR CONSTIPATION NOT HE in patient with hx of liver transplant, give after MRI Given 05/28/2020 11:45 PM EDT 20 g lidocaine (LIDODERM) 5 % 1 patch 1 patch, Transdermal, Every 24 hours, First dose on 05/31/20 at 1230, LEAVE PATCH ON FOR 12 HOURS,THEN REMOVE FOR 12 HOURS. Patch Applied 06/08/2020 11:34 AM EDT 1 patch Oth er Patch Applied 06/02/2020 1:19 PM EDT 1 patch Other Patch Applied 05/31/2020 1:40 PM EDT 1 patch Other lidocaine (PF) 2% (20 mg/mL) 20 mg/mL (2 %) Soln Starting on Mon06/08/20 at 1157, For 1 dose, Created by [employer] [facility] lidocaine (PF) 2% (20 mg/mL) Soln 20 mg 20 mg (1 mL), Intradermal, Once as needed, for fistula or graft access during Hemodialysis, Starting on Mon06/08/20 at 1232, For 1 dose, For Intradermal use only. 1 mL = 20 mg. Given 06/08/2020 12:34 PM EDT 20 mg Left Forearm lidocaine 10 mg/mL (1 %) injection Code/trauma medication, Starting on Mon06/02/20 at 0838, For 1 dose Given 06/02/2020 8:38 AM EDT 10 mLs Left Arm lidocaine 10 mg/mL (1 %) injection Code/trauma medication, Starting on Mon06/03/20 at 0832, For 1 dose Given 06/03/2020 8:32 AM EDT 10 mLs Other melatonin Tab 3 mg 3 mg, Oral, At Bedtime (2099), First dose on Mon05/30/20 at 2100, FOR INSOMNIA Given 06/07/2020 8:24 PM EDT 3 mg Given 06/06/2020 8:47 PM EDT 3 mg Given 06/05/2020 9:38 PM EDT 3 mg methocarbamoL (ROBAXIN) tablet 500 mg 500 mg, Oral, 4 times a day, First dose (after last modification) on Mon06/03/20 at 1830 Given 06/08/2020 5:11 PM EDT 500 mg Given 06/08/2020 8:20 AM EDT 500 mg Given 06/07/2020 8:16 PM EDT 500 mg metoprolol tartrate (LOPRESSOR) tablet 25 mg 25 mg, Oral, 2 times daily, First dose on Mon06/03/20 at 2100 Given by Other 06/08/2020 8:21 AM EDT 25 mg Given 06/07/2020 8:19 PM EDT 25 mg Given 06/07/2020 8:10 AM EDT 25 mg midazolam (PF) (VERSED) injection Intravenous, Code/trauma medication, Starting on Mon06/02/20 at 0826, For 1 dose Given 06/02/2020 8:26 AM EDT 1 mg midazolam (PF) (VERSED) injection Intravenous, Code/trauma medication, Starting on Mon06/02/20 at 0837, For 1 dose Given 06/02/2020 8:37 AM EDT 1 mg NIFEdipine (PROCARDIA-XL) 24 hr tablet 30 mg 30 mg, Oral, 2 times daily, First dose on Mon06/01/20 at 2100, DO NOT CRUSH Given 06/01/2020 8:49 PM EDT 30 mg NIFEdipine (PROCARDIA-XL) 24 hr tablet 60 mg 60 mg, Oral, 2 times daily, First dose (after last modification) on Mon06/02/20 at 0900, DO NOT CRUSH Given 06/02/2020 1:09 PM EDT 60 mg NIFEdipine (PROCARDIA-XL) 24 hr tablet 90 mg 90 mg, Oral, 2 times daily, First dose on Mon05/28/20 at 2100, DO NOT CRUSH Given 05/29/2020 8:38 AM EDT 90 mg Given 05/28/2020 8:46 PM EDT 90 mg NIFEdipine (PROCARDIA-XL) 24 hr tablet 90 mg 90 mg, Oral, 2 times daily, First dose (after last modification) on Mon06/02/20 at 2100, DO NOT CRUSH Given 06/08/2020 8:20 AM EDT 90 mg Given 06/07/2020 8:23 PM EDT 90 mg Given 06/07/2020 8:10 AM EDT 90 mg OMNIPAQUE 300 mg/mL (iohexol) 100 mL 100 mL, Intravenous, IMG once as needed, contrast, Starting on Mon06/02/20 at 0930, For 1 dose Given 06/02/2020 9:00 AM EDT 50 mLs ondansetron (ZOFRAN) injection 4 mg 4 mg, Intravenous, Every 8 hours PRN, Nausea and/or Vomiting, Starting on Mon05/29/20 at 1202 Given 06/08/2020 8:32 AM EDT 4 mg Given 06/04/2020 2:50 AM EDT 4 mg Given 06/03/2020 10:13 AM EDT 4 mg oxyCODONE (ROXICODONE) immediate release tablet 10 mg 10 mg, Oral, Every 4 hours PRN, severe pain (NRS 7-10), Starting on Bobbi 05/28/20 at 1536, If on IV and PO pain medications, use IV if patient cannot tolerate oral. Given 05/31/2020 5:21 AM EDT 10 mg Given 05/30/2020 3:37 AM EDT 10 mg Given 05/29/2020 9:55 AM EDT 10 mg oxyCODONE (ROXICODONE) immediate release tablet 10 mg 10 mg, Oral, Every 4 hours PRN, severe pain (NRS 7-10), Starting on 05/31/20 at 1539 Given 06/01/2020 8:13 AM EDT 10 mg Given 06/01/2020 5:07 AM EDT 10 mg Given 05/31/2020 11:53 PM EDT 10 mg oxyCODONE (ROXICODONE) immediate release tablet 5 mg 5 mg, Oral, Every 4 hours PRN, moderate pain (NRS-4-6), Starting on Bobbi 05/28/20 at 1536, If on IV and PO pain medications, use IV if patient cannot tolerate oral. Given 05/30/2020 10:22 PM EDT 5 mg oxyCODONE (ROXICODONE) immediate release tablet 5 mg 5 mg, Oral, Every 4 hours PRN, severe pain (NRS 7-10), Starting on 05/31/20 at 1039 Given 05/31/2020 1:41 PM EDT 5 mg oxyCODONE (ROXICODONE) immediate release tablet 5 mg 5 mg, Oral, Once, On 05/31/20 at 1600, For 1 dose Given 05/31/2020 4:07 PM EDT 5 mg oxyCODONE (ROXICODONE) immediate release tablet 5 mg 5 mg, Oral, Once, On 06/08/20 at 0130, For 1 dose Given 06/08/2020 1:53 AM EDT 5 mg pantoprazole (PROTONIX) EC tablet 40 mg 40 mg, Oral, Daily6, First dose on 05/30/20 at 0600, Do Not Crush Given 06/08/2020 4:18 AM EDT 40 mg Given 06/07/2020 4:36 AM EDT 40 mg Given 06/06/2020 4:42 AM EDT 40 mg pantoprazole (PROTONIX) injection 40 mg 40 mg, Intravenous, Two times a day, First dose on Bobbi 05/28/20 at 2030, Dilute each 40 mg vial with 10 mL of Normal Saline Given 05/28/2020 8:46 PM EDT 40 mg polyethylene glycol (MIRALAX) packet 17 g 17 g, Oral, 2 times daily, First dose on Bobbi 05/28/20 at 1430 Given 06/05/2020 9:53 AM EDT 17 g Given 06/04/2020 9:42 PM EDT 17 g Given 06/03/2020 8:51 PM EDT 17 g polyethylene glycol (MIRALAX) packet 17 g 17 g, Oral, Daily as needed, Constipation, Starting on Mon06/07/20 at 2100 proMETHazine (PHENERGAN) injection 6.25 mg 6.25 mg, Intravenous, Once, On Bobbi 05/28/20 at 2200, For 1 dose, IRRITANT IV Push administration REQUIRES dilution with 10 mL Saline Given 05/28/2020 10:00 PM EDT 6.25 mg proMETHazine (PHENERGAN) tablet 12.5 mg 12.5 mg, Oral, Every 6 hours PRN, Nausea, Vomiting, Starting on Mon05/29/20 at 1203 Given 06/06/2020 8:45 PM ED T 12.5 mg Given 06/05/2020 3:42 PM EDT 12.5 mg Given 05/31/2020 4:35 PM EDT 12.5 mg quetiapine (SEROQUEL) half tablet 12.5 mg 12.5 mg, Oral, At Bedtime (2100), First dose (after last reorder) on 05/30/20 at 2100, PRECUT BY PHARMACY Given 06/07/2020 8:16 PM EDT 12.5 mg Given 06/06/2020 8:46 PM EDT 12.5 mg Given 06/05/2020 9:41 PM EDT 12.5 mg QUEtiapine (SEROQUEL) tablet 25 mg 25 mg, Oral, Once, On 05/30/20 at 0330, For 1 dose Given 05/30/2020 3:38 AM EDT 25 mg senna-docusate (SENNA-S) 8.6-50 mg per tablet 2 tablet 2 tablet, Oral, At Bedtime (2099), First dose on Mon05/28/20 at 2100 Given 06/03/2020 8:51 PM EDT 2 tablets Given 06/02/2020 8:57 PM EDT 2 tablets Given 06/01/2020 8:49 PM EDT 2 tablets senna-docusate (SENNA-S) 8.6-50 mg per tablet 2 tablet 2 tablet, Oral, Nightly PRN, Constipation, Starting on Mon06/07/20 at 2100 sodium chloride 0.9 % infusion 1,000 mL 1,000 mL, Intravenous, Once, On 05/30/20 at 0500, For 1 dose New Bag 05/30/2020 5:12 AM EDT 1,000 mLs sodium chloride 0.9 % infusion 500 mL 500 mL, Intravenous, Once, On Mon05/31/20 at 0700, For 1 dose, at 1,000 mL/hr New Bag 05/31/2020 6:40 AM EDT 500 mLs 1000 mL/hr sodium chloride 0.9 % infusion 20 mL/hr, Intravenous, Continuous, Starting on Mon05/30/20 at 0500, For 12 hours, Normal Saline 0.9% run at KVO only during administration of blood products. New Bag 05/30/2020 7:08 AM EDT 20 mL/hr 20 mL/hr sodium chloride 0.9 % infusion Intravenous, Code/trauma continuous med, Starting on Mon06/02/20 at 0820 New Bag 06/02/2020 8:20 AM EDT 250 mLs terazosin (HYTRIN) capsule 10 mg 10 mg, Oral, At Bedtime (2099), First dose on Bobbi 05/28/20 at 2100, Therapeutic Interchange: doxazosin (CARDURA) 8 mg daily = terazosin (HYTRIN) 10 mg daily Given 06/07/2020 8:16 PM EDT 10 mg Given 06/06/2020 8:46 PM EDT 10 mg Given 06/05/2020 9:40 PM EDT 10 mg vancomycin (VANCOCIN) 1,000 mg in sodium chloride 0.9% 250 mL ADDaptor IVPB 1,000 mg, Intravenous, Administer over 60 Minutes, Once, Use ADDaptor product - Mix Thoroughly Before Administration, Indication? Infection-Suspected, Site of diagnosed infections (select all that apply): Musculoskeletal, Type of Therapy: New Therapy New Bag 06/05/2020 3:42 PM EDT 1,000 mg 250 mL/hr vancomycin (VANCOCIN) 1,000 mg in sodium chloride 0.9% 250 mL ADDaptor IVPB 1,000 mg, Intravenous, Administer over 60 Minutes, Once, Please give dose after dialysis Use ADDaptor product - Mix Thoroughly Before Administration, Indication? Infection-Suspected, Site of diagnosed infections (select all that apply): Musculoskeletal, Type of Therapy: New Therapy New Bag 06/07/2020 5:35 PM EDT 1,000 mg 250 mL/hr vancomycin (VANCOCIN) 1,250 mg in sodium chloride 0.9 % 250 mL IVPB 1,250 mg (rounded from 1,261 mg = 10 mg/kg ? 126.1 kg), Intravenous, Administer over 75 Minutes, Once, Indication? Infection-Suspected, Site of diagnosed infections (select all that apply): Musculoskeletal, Type of Therapy: New Therapy Given 06/02/2020 4:17 PM EDT 1,250 mg 200 mL/hr vancomycin (VANCOCIN) 1,500 mg in sodium chloride 0.9 % 250 mL IVPB 1,500 mg (rounded from 1,513.2 mg = 12 mg/kg ? 126.1 kg), Intravenous, Administer over 90 Minutes, Once, Indication? Infection-Suspected, Site of diagnosed infections (select all that apply): Musculoskeletal, Type of Therapy: New Therapy Given 05/28/2020 5:38 PM EDT 1,500 mg 167 mL/hr vancomycin intermittent/pulse dosing PLACEHOLDER ORDER Intravenous, Use as directed PRN, receiving intermittent/pulse dosing vancomycin, Starting on Bobbi 05/28/20 at 1627, Patient is receiving intermittent/pulse vancomycin dosing based on random serum levels. NOTE:This is NOT an active medication order. If a dose of vancomycin is needed, it must be entered as a one-time dose by physicians or pharmacists. documented in this encounter Active and Recently Administered Medications Times are shown in EDT. Scheduled Medication Order 06/06/2020 06/07/2020 06/08/2020 acetaminophen (TYLENOL) tablet 975 mg 975 mg, Oral, Every 6 hours, First dose (after last modification) on 06/03/20 at 1900, Maximum dose of acetaminophen is 4000 mg (4 grams) from all sources in 24 hours. 0442 (Given - Provider: Roxi Gurrola RN)0926 (Given - Provider: Yana Monroe RN)1814 (Given - Provider: Yana Monroe RN)2048 (Given - Provider: Roxi Gurrola RN) 0435 (Not Given - Provider: Roxi Gurrola RN - Reason: Contraindicated)09 (Given - Provider: Yana Monroe RN)173 (Given - Provider: Yana Monroe RN)2015 (Not Given - Provider: Roxi Gurrola RN - Reason: Order parameters not met - Comment: 173 given) 0153 (Given - Provider: Roxi Gurrola RN)0820 (Given - Provider: Lindsay Rivera, JANA)1711 (Given - Provider: Lindsay Rivera RN) carBAMazepine (TEGRETOL) tablet 200 mg 200 mg, Oral, At Bedtime (2099), First dose on Bobbi 05/28/20 at 2100 2045 (Given - Provider: Roxi Gurrola RN) 2015 (Given - Provider: Roxi Gurrola RN) cycloSPORINE modified (NEORAL) capsule 50 mg (CANCELED) 50 mg, Oral, Every morning, First dose (after last modification) on 06/06/20 at 0900, LEVEL 2 HAZARDOUS MEDICATION 09 (Given - Provider: Yana Monroe RN) 09 (Given - Provider: Yana Monroe RN) cycloSPORINE modified (NEORAL) capsule 75 mg (CANCELED) 75 mg, Oral, At Bedtime (2099), First dose on Mon06/05/20 at 2100, LEVEL 2 HAZARDOUS MEDICATION 2045 (Given - Provider: Roxi Gurrola RN) cycloSPORINE modified (NEORAL) capsule 75 mg 75 mg, Oral, 2 times daily, First dose (after last modification) on Mon06/07/20 at 2100, LEVEL 2 HAZARDOUS MEDICATION 2014 (Given - Provider: Roxi Gurrola RN) 0820 (Given - Provider: Lindsay Rivera RN) entecavir (BARACLUDE) tablet 0.5 mg 0.5 mg, Oral, Every 7 days, First dose on Mon06/02/20 at 0900, ADMINISTER ON EMPTY STOMACH (2 HOURS BEFORE OR AFTER MEALS). LEVEL 2 HAZARDOUS MEDICATION epoetin giancarlo-epbx (RETACRIT) 3,000 unit/mL solution 6,000 Units 6,000 Units, Subcutaneous, Every Monday, Monday, Monday (Once per day on Mon), Indications: Anemia in Chronic Kidney Disease, First dose (after last modification) on Mon06/03/20 at 0900 1008 (Given - Provider: Lindsay Rivera RN) fluconazole (DIFLUCAN) tablet 200 mg 200 mg, Oral, Daily, First dose on Mon06/07/20 at 1330, For 14 days 1736 (Given - Provider: Yana Monroe RN) 0820 (Given - Provider: Lindsay Rivera RN) gabapentin (NEURONTIN) capsule 200 mg 200 mg, Oral, At Bedtime (2100), First dose (after last modification) on Mon06/04/20 at 2100 2048 (Given - Provider: Roxi Gurrola RN) 2017 (Given - Provider: Roxi Gurrola RN) heparin (porcine) injection 5,000 Units 5,000 Units, Subcutaneous, Every 8 hours scheduled (3 times per day), First dose on Mon06/03/20 at 2100 0443 (Not Given - Provider: Roxi Gurrola RN - Reason: Patient/family refused)1251 (Not Given - Provider: Yana Monroe RN - Reason: Patient/family refused)2045 (Not Given - Provider: Roxi Gurrola RN - Reason: Patient/family refused) 0436 (Not Given - Provider: Roxi Gurrola RN - Reason: Patient/family refused)1238 (Not Given - Provider: Yana Monroe RN - Reason: Patient/family refused)2014 (Not Given - Provider: Roxi Gurrola RN - Reason: Patient/family refused) 0418 (Not Given - Provider: Roxi Gurrola RN - Reason: Patient/family refused)1235 (Not Given - Provider: Lindsay Rivera RN - Reason: Patient not available - Comment: Patient in dialysis) hydrALAZINE (APRESOLINE) tablet 100 mg 100 mg, Oral, Every 8 hours scheduled (3 times per day), First dose on 06/01/20 at 2100 0442 (Given - Provider: Roxi Gurrola RN)1252 (Given - Provider: Yana Monroe RN)2047 (Given - Provider: Roxi Gurrola RN) 0435 (Given - Provider: Roxi Gurrola RN)1237 (Given - Provider: Yana Monroe RN)2018 (Given - Provider: Roxi Gurrola RN) 0417 (Given - Provider: Roxi Gurrola RN)1711 (Given - Provider: Lindsay Rivera RN) insulin lispro (humaLOG) injection 0-5 Units 0-5 Units, Subcutaneous, 3 times daily before meals, First dose on 05/31/20 at 0900, HIGH ALERT MEDICATION 1003 (Not Given - Provider: Yana Monroe RN - Reason: Order parameters not met)1426 (Given - Provider: Yana Monroe RN)1840 (Given - Provider: Yana Monroe RN) 0900 (Hold - Provider: Yana Monroe RN - Reason: Order parameters not met)1255 (Not Given - Provider: Yana Monroe RN - Reason: Order parameters not met)1758 (Given - Provider: Yana Monroe RN) 1014 (Given - Provider: Lindsay Rivera RN)1300 (Due)1713 (Given - Provider: Lindsay Rivera RN) lidocaine (LIDODERM) 5 % 1 patch 1 patch, Transdermal, Every 24 hours, First dose on 05/31/20 at 1230, LEAVE PATCH ON FOR 12 HOURS,THEN REMOVE FOR 12 HOURS. 1252 (Not Given - Provider: Yana Monroe RN - Reason: Patient/family refused) 1238 (Not Given - Provider: Yana Monroe RN - Reason: Patient/family refused) 1134 (Patch Applied - Provider: Lindsay Rivera RN - Comment: Left hip / thigh)2334 (Due: Patch Removed - Provider: Lindsay Rivera RN) melatonin Tab 3 mg 3 mg, Oral, At Bedtime (2099), First dose on Mon05/30/20 at 2100, FOR INSOMNIA 2046 (Given - Provider: Roxi Gurrola RN) 2023 (Given - Provider: Roxi Gurrola RN) methocarbamoL (ROBAXIN) tablet 500 mg 500 mg, Oral, 4 times a day, First dose (after last modification) on Mon06/03/20 at 1830 0926 (Given - Provider: Yana Monroe RN)1252 (Given - Provider: Yana Monroe RN)1814 (Given - Provider: Yana Monroe RN)204 (Given - Provider: Roxi Gurrola RN) 0903 (Given - Provider: Yana Monroe RN)123 (Given - Provider: Yana Monroe RN)1736 (Given - Provider: Yana Monroe RN)2015 (Given - Provider: Roxi Gurrola RN) 0820 (Given - Provider: Lindsay Rivera RN)1300 (Not Given - Provider: Lindsay Rivera RN - Reason: Patient not available - Comment: Patient in dialysis)1711 (Given - Provider: Lindsay Rivera RN) metoprolol tartrate (LOPRESSOR) tablet 25 mg 25 mg, Oral, 2 times daily, First dose on Mon06/03/20 at 2100 0925 (Given - Provider: Yana Monroe RN)2047 (Given - Provider: Roxi Gurrola RN) 08 (Given - Provider: Yana Monroe RN)2018 (Given - Provider: Roxi Gurrola RN) 0821 (Given by Other - Provider: Lindsay Rivera RN) NIFEdipine (PROCARDIA-XL) 24 hr tablet 90 mg 90 mg, Oral, 2 times daily, First dose (after last modification) on Mon06/02/20 at 2100, DO NOT CRUSH 0926 (Given - Provider: Yana Monroe RN)2046 (Given - Provider: Roxi Gurrola RN) 08 (Given - Provider: Yana Monroe RN)2022 (Given - Provider: Roxi Gurrola RN) 0820 (Given - Provider: Lindsay Rivera RN) oxyCODONE (ROXICODONE) immediate release tablet 5 mg (COMPLETED) 5 mg, Oral, Once, On 06/08/20 at 0130, For 1 dose 0153 (Given - Provider: Roxi Gurrola RN) pantoprazole (PROTONIX) EC tablet 40 mg 40 mg, Oral, Daily6, First dose on 05/30/20 at 0600, Do Not Crush 0442 (Given - Provider: Roxi Gurrola RN) 0436 (Given - Provider: Roxi Gurrola RN) 0418 (Given - Provider: Roxi Gurrola RN) quetiapine (SEROQUEL) half tablet 12.5 mg 12.5 mg, Oral, At Bedtime (2100), First dose (after last reorder) on 05/30/20 at 2100, PRECUT BY PHARMACY 2045 (Given - Provider: Roxi Gurrola RN) 2015 (Given - Provider: Roxi Gurrola RN) terazosin (HYTRIN) capsule 10 mg 10 mg, Oral, At Bedtime (2099), First dose on Bobbi 05/28/20 at 2100, Therapeutic Interchange: doxazosin (CARDURA) 8 mg daily = terazosin (HYTRIN) 10 mg daily 2045 (Given - Provider: Roxi Gurrola RN) 2015 (Given - Provider: Roxi Gurrola RN) vancomycin (VANCOCIN) 1,000 mg in sodium chloride 0.9% 250 mL ADDaptor IVPB (COMPLETED) 1,000 mg, Intravenous, Administer over 60 Minutes, Once, Please give dose after dialysis Use ADDaptor product - Mix Thoroughly Before Administration, Indication? Infection-Suspected, Site of diagnosed infections (select all that apply): Musculoskeletal, Type of Therapy: New Therapy 6095 (New Bag - Provider: Yana Monroe RN) PRN Medication Order 06/06/2020 06/07/2020 06/08/2020 ALPRAZolam (XANAX) tablet 0.5 mg 0.5 mg, Oral, Daily as needed, Anxiety, before dialysis. Please contact MD before giving otherwise, Starting on 05/30/20 at 1223 1242 (Given - Provider: Allison Martinez, JANA) dextrose 50 % in water (D50W) iv Syrg 25 mL(Linked Group 1) 25 mL, Intravenous, Every 15 min PRN, for glucose < 70 and alert but can not be corrected, orally or via feeding tube, Starting on Bobbi 05/28/20 at 1415, Recheck blood sugar in 15 minutes and repeat treatment if glucose still < 70. dextrose 50 % in water (D50W) iv Syrg 50 mL(Linked Group 1) 50 mL, Intravenous, Every 15 min PRN, for glucose < 70 and not alert, Starting on Bobbi 05/28/20 at 1415, Recheck glucose in 15 minutes and repeat treatment if glucose still < 70. glucose chewable tablet 12 g 12 g, Oral, Every 15 min PRN, Low blood sugar, for glucose 50-70 mg/dL, Starting on Bobbi 05/28/20 at 1415, Recheck glucose in 15 minutes and if glucose still < 70, repeat treatment. DO NOT ADMINISTER VIA FEEDING TUBE HYDROmorphone (DILAUDID) injection Syrg 0.5 mg 0.5 mg, Intravenous, Every 6 hours PRN, moderate pain (NRS-4-6), severe pain (NRS 7-10), Starting on Mon06/05/20 at 1803, For 3 days 1 hour 1427 (Given - Provider: Yana Monroe RN)2101 (Given - Provider: Roxi Gurrola RN) 0448 (Given - Provider: Roxi Gurrola RN)1258 (Given - Provider: Erika Pitts RN)2024 (Given - Provider: Roxi Gurrola RN) 0832 (Given - Provider: Lindsay Rivera, JANA)1519 (Given - Provider: Allison Martinez, JANA) lidocaine (PF) 2% (20 mg/mL) Soln 20 mg (COMPLETED) 20 mg (1 mL), Intradermal, Once as needed, for fistula or graft access during Hemodialysis, Starting on 06/08/20 at 1232, For 1 dose, For Intradermal use only. 1 mL = 20 mg. 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) ondansetron (ZOFRAN) injection 4 mg 4 mg, Intravenous, Every 8 hours PRN, Nausea and/or Vomiting, Starting on Mon05/29/20 at 1202 0832 (Given - Provider: Lindsay Rivera RN) polyethylene glycol (MIRALAX) packet 17 g 17 g, Oral, Daily as needed, Constipation, Starting on Mon06/07/20 at 2099 2014 (Not Given - Provider: Roxi Gurrola RN - Reason: Patient/family refused) proMETHazine (PHENERGAN) tablet 12.5 mg 12.5 mg, Oral, Every 6 hours PRN, Nausea, Vomiting, Starting on Mon05/29/20 at 1203 2045 (Given - Provider: Roxi Gurrola RN) senna-docusate (SENNA-S) 8.6-50 mg per tablet 2 tablet 2 tablet, Oral, Nightly PRN, Constipation, Starting on Mon06/07/20 at 2099 2014 (Not Given - Provider: Roxi Gurrola RN - Reason: Patient/family refused) vancomycin intermittent/pulse dosing PLACEHOLDER ORDER Intravenous, Use as directed PRN, receiving intermittent/pulse dosing vancomycin, Starting on Bobbi 05/28/20 at 1627, Patient is receiving intermittent/pulse vancomycin dosing based on random serum levels. NOTE:This is NOT an active medication order. If a dose of vancomycin is needed, it must be entered as a one-time dose by physicians or pharmacists. Linked Groups Order Group 1: dextrose 50 % in water (D50W) iv Syrg 25 mLJump to med 25 mL, Intravenous, Every 15 min PRN, for glucose < 70 and alert but can not be corrected, orally or via feeding tube, Starting on Bobbi 05/28/20 at 1415, Recheck blood sugar in 15 minutes and repeat treatment if glucose still < 70. Or dextrose 50 % in water (D50W) iv Syrg 50 mLJump to med 50 mL, Intravenous, Every 15 min PRN, for glucose < 70 and not alert, Starting on Bobbi 05/28/20 at 1415, Recheck glucose in 15 minutes and repeat treatment if glucose still < 70. documented in this encounter Additional Health Concerns Infection Onset Date Last Indicated Resolved Time Rule Out COVID-19 05/28/2020 05/28/2020 05/29/2020 10:53 AM EDT Rule Out COVID-19 06/05/2020 06/05/2020 06/06/2020 10:52 AM EDT Assessment Noted Time PHQ-9 Depression Total Score: 0 12/06/19 18 3:00 PM EDT documented as of this encounter Care Teams Train Announcer Relationship Specialty Start Date End Date Edgar Fournier MD [address] [place] [address] [place] [address] PCP - General 08/18/17 06/23/21 Maile Valles, JANA Txp Post Coordinator Transplant Hepatology 11/07/17 Jack Ordoñez MD [address] [place] [phone] Consulting Physician Transplant Hepatology 01/05/18 Estephania Sharif, DarrianD Pharmacist Pharmacist 11/11/19 documented as of this encounter
--- OUTSIDE RECORDS SUMMARY | 2024-07-12 12:42 | XMS_ITS | Encounter Summary ---
Author Organization [facility] Address [address] [place] [address] Care Team Providers Care Bladder Tier Name Role Phone Edgar Fournier MD Primary Care Provider [phone] Maile Valles RN Unavailable Unavail able Jack Ordoñez MD Unavailable [phone] Estephania Sharif PharmD Unavailable Christine vailable [...] release of HIV test results or diagnoses. [id number] Health Encounter Details Date Type Department Care Team (Late st Contact Info) Description 04/08/2020 Telephone [facility] Transplant Related Interdisciplinary Metabolic Surgery at [facility] [address] [address] Laurence Hernandez MA Social History Tobacco Use Types Packs/Day [...] have Coronavirus / COVID-19? No / Unsure 03/16/2020 9:35 AM EDT documented as of this encounter Miscellaneous Notes * Telephone Encounter - Laurence Hernandez MA - 04/08/2020 2:39 PM EDT Called pt to see if he had COVID test near him for surgery tomorrow (04/09/20). Pt informed me that he was just released from the hospital due to high BP and heart rate. BP's have been 227/125 range. Pt is aware surgery will need to be canceled due to that reason and once he has everything stable, we will put him back on the books for surgery. Pt had no questions at this time. Dr. Shipley also agreed with this plan. documented in this encounter Plan of Treatment Upcoming Encounters Date Type Department Care Team (Late st Contact Info) Description 07/15/2024 9:00 AM EST Hospital Encounter [facility] Interventional Radiology [address] [place] [id number] Herve Carrillo MD [address] [facility] [address] [facility] [place] [id number] documented as of this encounter Visit Diagnoses Not on filedocumented in this encounter Additional Health Concerns Assessment Noted Time PHQ-9 Depression Total Score: 0 12/06/19 18 3:00 PM EDT documented as of this encounter Care Teams Bladder Tier Relationship Specialty Start Date End Date Edgar Fournier MD [address] [place] [address] [place] [address] PCP - General 08/18/17 06/23/21 Maile Valles, RN Txp Post Coordinator Transplant Hepatology 11/07/17 Jack Ordoñez MD [address] [place] [phone] Consulting Physician Transplant Hepatology 01/05/18 Estephania Sharif, PharmD Pharmacist Pharmacist 11/11/19 documented as of this encounter
--- OUTSIDE RECORDS SUMMARY | 2024-07-12 12:42 | XMS_ITS | Encounter Summary ---
Author Organization [facility] Address [address] [place] [address] Care Team Providers Care Chief Hospital Administrator Name Role Phone Edgar Fournier MD Primary Care Provider [phone] Maile Valles RN Unavailable Unavail able Jack Ordoñez MD Unavailable [phone] Estephania Sharif PharmD Unavailable Christine vailable [...] release of HIV test results or diagnoses. [id number] Health Encounter Details Date Type Department Care Team (Late st Contact Info) Description 05/13/2020 Telephone [facility] Liver Transplant at [place] [id number] [facility] [address] [place] [address] Nae Shannon MA Social History [...] Telephone Encounter - Maile Valles RN - 05/13/2020 11:24 AM EDT Spoke with patient's . She reported that patient is being discharged from OSH today because he's refusing to work with PT. She has concerns about being able to take care of him at home. Explainedthat she should ask to speak with the social psychologist on his team at the hospital to discuss resources. Patient's still thinks he should be in the hospital, but since they want to discharge him and won't initiate a transfer to [facility], she may bring him to . Explained that if patient is not beingdirectly transferred, he would have to come to ED. She verbalized understanding. * Telephone Encounter - Nae Shannon MA - 05/13/2020 10:51 AM EDT Pts Kym would like to speak to you about him being in the hospital at [facility] and getting pt transferred to . She said that she was told that his insurance would pay to have him transferred and she wants to know if this true or if there is something that you can do about this. documented in this encounter Plan of Treatment Upcoming Encounters Date Type Department Care Team (Late st Contact Info) Description 07/15/2024 9:00 AM EST Hospital Encounter [facility] Interventional Radiology [address] [place] [phone] Herve Carrillo MD [address] [facility] [place] [phone] documented as of this encounter Visit Diagnoses Not on filedocumented in this encounter Additional Health Concerns Assessment Noted Time PHQ-9 Depression Total Score: 0 12/06/19 18 3:00 PM EDT documented as of this encounter Care Teams Chief Hospital Administrator Relationship Specialty Start Date End Date Edgar Fournier MD [address] [address] PCP - General 08/18/17 06/23/21 Maile Valles, RN Txp Post Coordinator Transplant Hepatology 11/07/17 Jack Ordoñez MD [address] [place] [phone] Consulting Physician Transplant Hepatology 01/05/18 Estephania Sharif, DarrianD Pharmacist Pharmacist 11/11/19 documented as of this encounter
--- OUTSIDE RECORDS SUMMARY | 2024-07-12 12:42 | XMS_ITS | Encounter Summary ---
Author Organization [facility] Address [facility] [place] [address] Care Team Providers Care Ingot Car Operator Name Role Phone Edgar Fournier MD Primary Care Provider [phone] Maile Valles RN Unavailable Unavail able Jack Ordoñez MD Unavailable [phone] Estephania Sharif PharmD Unavailable Christine vailable [...] release of HIV test results or diagnoses. [id number] Reason for Visit * Auth/Cert Specialty Diagnoses / Procedures Referred By Contac t Referred To Contact Transplant Diagnoses POST-OP INFECTION [address] [place] [address] Phone: tel: Referral ID Status Reason Start Date Expiration Date Visits Re quested Visits Authorized [id number] 1 1 Encounter Details Date Type Department Care Team (Late st Contact Info) Description 05/29/2020 2:37 PM EDT - 05/29/2020 3:03 PM EDT Surgery [facility] ENDOSCOPY [address] [place] [address] Rashid Winchester MD EGD WITH BIOPSY Surgery Details Date/Time Status Location OR Service Patient Class Case Class Case Type Trauma Case? 05/29/2020 2:37 PM Posted ENDOSCOPY [facility] E3 Gastroenterology Inpatient EGD/Sm Bowel Panel 1 Procedure LRB Anes Op Region Wound Class Comments EGD WITH BIOPSY N/A General N/A Surgeon Surgeon Role Service Panel Rashid Winchester MD Primary Gastroenterology 1 documented in this [...] Sign Reading Time Taken Comments Blood Pressure 93/65 05/29/2020 12:42 PM EDT Pulse 122 05/29/2020 12:42 PM EDT Temperature 36.6 ??C (97.9 ??F) 05/29/2020 12:42 PM E DT Respiratory Rate 18 05/29/2020 12:42 PM EDT Oxygen Saturation 90% 05/29/2020 12:42 PM EDT Inhaled Oxygen Concentration 90% 05/29/2020 1 2:42 PM EDT Weight 126.1 kg (278 lb) 05/28/2020 3:00 PM EDT Height - - Body Mass Index 39.47 06/02/2020 8:50 AM EDT documented in this encounter Discharge Summaries * Jay Day MD - 06/08/2020 2:22 PM EDT [facility] Department of Internal Medicine Inpatient Discharge Summary Patient: Leoncio Rollins Jr. CSN: [id number] Date of Admission: 05/28/2020 Date of Discharge: [...] Case IDs Date Procedure Surgeon Location Status [id number] 05/29/20 EGD WITH BIOPSY Rashid Winchester MD [...] placed during the hospital encounter of 05/28/20 [facility] Venous Duplex Lower Extremity Bilateral Narrative Bilateral: [...] QT: 256 ms QTc: 378 ms P [place]: 41 degrees R [place]: 51 degrees T [place]: 167 degrees Diagnosis Line: SINUS TACHYCARDIA ^ POSSIBLE LEFT ATRIAL ENLARGEMENT ^ ST SEGMENT CHANGE AND ANTEROLATERAL T WAVE INVERSION ^ POSSIBLE INFERIOR MS ^ COMPARED TO THE ECG OF 28-MAY-2020 13:29, ^ T WAVEINVERSION NOW EVIDENT IN ANTEROLATERAL LEADS ^ Confirmed by Marcelino JERYR MD ([id number]) on 06/01/2020 9:30:56 AM Results for orders placed during the hospital encounter of 05/28/20 Echo 2D Complete (TTE) Narrative * [facility]* [address] [place] [address] Transthoracic Echocardiography Patient: Leoncio Rollins MR #: [id number] Account: Study Date: 06/01/2020 Gender: M Age: 45 : 1975 Room: [facility] DENNY Hamilton MD POLICE MATRON Albertina Roth, [facility] ORDERING María Galvez REFERRING María Galvez [...] Reviewed and confirmed by Thania Hamilton MD [id number] Other Procedures: 1. EGD 2. AVF declotting [...] tablet 200 mg 200 mg Oral Nightly (2100) María Galvez MD 200 mg at 06/07/202015 [...] 0600 María Galvez MD 40 mg at 06/08/20 0418 ??? polyethylene glycol (MIRALAX) packet 17 g [...] (2099) María Galvez MD 10 mg at ??? vancomycin intermittent/pulse dosing PLACEHOLDER ORDER Intravenous [...] after 5 days, and blood cultures at [facility] also with NG after5 days. Patient [...] dialysis sessions #SAL Cirrhosis s/p liver transplant 2018 No acute decompensation. Patient follows with Dr. [...] he would needs cyclosporine level checks at [facility] as he Fluconazole increase cyclosporine level. MELD-Na [...] Center 07/01/2020 2:30 PM Ravi Biswas MD [facility] Patient Instructions / Follow-Up Items for Receiving Physician 1. Complete 8 weeks of IV Vancomycin 1000 mg with diaylsis (05/28/2020-07/22/2020) 2. Complete 2 weeks of PO fluconazole 200 mg (06/07/2020-06/20/2020) Signed: JAY DAY MD 06/08/2020, 2:22 PM Cosigned by Ayb Cavazos MD at 06/08/2020 2:25 PM EDT [...] Churchill RN - 06/08/2020 11:30 AM EDT [facility] Acetone Button Paster/Wares Sorter Discharge Summary Patient name: Leoncio Rollins Jr. Patient : 1975 Age: 45 y.o. Gender: male Patient emergency contact: Extended Emergency Contact Information Primary Emergency Contact: Kym Rollins Address: [address] [place] [id number] [facility] Mobile Relation: Spouse Secondary Emergency Contact: Kimberly Rollins [facility] Relation: Mother Attending provider: Aby Cavazos MD Primary care physician: Edgar Fournier MD The MD has indicated that the patient is ready for discharge. Leoncio Rollins Jr. was referred and accepted at [facility] Facility Name: [facility] Provider Contact Number: Report: [phone] Fax: [phone]. The patient will be transported by Mobile Care [phone] at 6PM Transfer Mode/Level of Care: Basic [...] of functioning Post Acute Care Provider Information: [facility] Provider Contact Number: Report: [phone] Fax: [phone] Community Services at Discharge Community Services at Home post discharge: Not Applicable Pending Labs & Dialysis Information: Pending Lab Results None Dialysis Order (48h ago, onward) Ordered Start 06/01/20 1226 IP Hemodialysis orders/machine parameters - Q MON - - SAT (Hemodialysis orders (single select)) Every Mon,Mon,Sat Comments: In an event of an interruption, [...] implied in this order set. Ordering Provider: Aubrye Andrew MD Question Answer Comment Diagnosis End [...] 30 days? See Below Yes 06/01/20 0900 [facility] HD PreTreatment (last 720 hours) [facility] HD Pre-Treatment Row Name 06/04/20 1425 [...] machine notify MD LAZAR;denies needs at this drha111/60 -- 105/55 hr 109 Row Name 06/04/20 [...] this time denies needs at this timereposition jojg910/57 Row Name 06/04/20 1645 06/04/20 1630 06/04/20 [...] time Treatment initiated Row Name 06/01/20 1045 05/29/20 2200 05/29/20 2145 Hemodialysis Intra - treatment BP -- (!) [...] reposition b/p cuff 101/[address] aKmran mirza to d/c tx other anxious, wants to stop HD early other Anxious, PRN Xanax given. Row Name 05/29/20200305/29/20199905/29/201944 Hemodialysis Intra - treatment BP 102/76 (!) [...] BP cuff repositioned. VSS Row Name 05/29/20192905/29/20191405/29/20 1845 Hemodialysis Intra - treatment BP -- (!) [...] needs at this time Row Name 05/29/20 18305/29/20 18105/29/20 1800 Hemodialysis Intra - treatment BP (!) [...] venous line infiltrate -- tx terminated per MD pt request. Hemodialysis Weights Dry Weight 273 [...] -- -- Active Emelina Churchill RN CM [phone] documented in this encounter Discharge Instructions * [...] 07/31/2006 Document Revised: 01/05/2017 Document Reviewed: 07/29/2015 [employer] Interactive Patient Education ?? 2018 [employer]. --> Medication changes: 1) Stop Cellcept 2) [...] Ravi Biswas MD [facility] Recent Labs 06/05/20 1200 [...] times a day as needed. 0 06/25/20 20 ALPRAZolam (XANAX) 1 MG tablet Take by mouth. 06/25/20 20 blood sugar diagnostic Strp Use to test blood sugar up to 4 times a day. Diagnosis for use: E 9.65. For use with One Touch Verio meters. 150 strip 5 8 03/18/20 22 blood-glucose meter (ONETOUCH VERIO SYSTEM) [facility] Use as instructed. 1 each 8 03/18/20 22 calcitRIOL (ROCALTROL) 0.25 MCG capsule Take by mouth. 0 06/25/20 20 calcium acetate,phosphat bind, (PHOSLO) 667 mg capsule Take by mouth. 0 06/25/20 20 carBAMazepine ER (TEGRETOL XR) 200 MG 12 hr tablet Take by mouth. 0 06/25/20 20 cephALEXin (KEFLEX) 500 MG capsule TAKE ONE CAPSULE BY MOUTH TWICE DAILY FOR SEVEN DAYS 0 06/25/20 20 cyclobenzaprine (FLEXERIL) 10 MG tablet TAKE ONE TABLET BY MOUTH EVERY EIGHT HOURS NEEDED FOR MUSCLE SPASMS 0 06/25/20 20 cycloSPORINE modified (NEORAL) 100 MG capsule Take [...] mouth every Monday, , and Monday. 03/18/20 famotidine (PEPCID) 20 MG tablet Take 20 [...] MG capsule Take by mouth. 0 06/25/20 20 gabapentin (NEURONTIN) 100 MG capsuleIndications: Other osteonecrosis, left femur (CMS-HCC) Take 1 capsule (100 mg total) by mouth 2 times a day. 90 capsule 0 11/16/19 gabapentin (NEURONTIN) 800 MG tablet Take by mouth. 06/25/20 gabapentin (NEURONTIN) 800 MG tablet take 1&1/2 TABLETS BY MOUTH THREE TIMES DAILY 0 06/25/20 20 hydrALAZINE (APRESOLINE) 100 MG tablet 2 times a day. 0 06/25/20 hydrALAZINE (APRESOLINE) 100 MG tablet Take 1 tablet (100 mg total) by mouth every 8 hours. 120 tablet 0 11/09/19 24 hydrALAZINE (APRESOLINE) 50 MG tablet Take 100 mg by mouth 3 times a day. 06/25/20 hydrALAZINE (APRESOLINE) 50 MG tablet Take by mouth. 06/25/20 hydrocortisone 2.5 % cream Apply to face daily as directed 0 06/25/20 hydrOXYzine pamoate (VISTARIL) 25 MG capsule take 1 Capsule by mouth daily 1 hour prior to dialysis 0 06/25/20 20 insulin NPH and regular human (HUMULIN 70/30 U-100 KWIKPEN) 100 unit/mL (70-30) InPn Inject subcutaneously. 0 06/25/20 20 insulin NPH isoph U-100 human (HUMULIN N NPH INSULIN KWIKPEN) 100 unit/mL (3 mL) InPnIndications:S/P liver transplant (CMS-HCC),Hyperglyc emia Inject subcutaneously 20 units in the AM and 8 units in the PM. 15 mL 5 9 06/25/20 20 insulin NPH isoph U-100 human (HUMULIN N NPH INSULIN KWIKPEN) 100 unit/mL (3 mL) InPnIndications:S/P liver transplant ([facility]-HCC),Hyperglyc emia Inject subcutaneously 12 units in the AM and 6 units in the PM. 15 mL 5 0 11/02/19 22 JANUVIA 100 mg tablet 0 06/25/20 20 ketoconazole (NIZORAL) 2 % shampoo Wash hairline and face 2-3 times weekly 0 06/25/20 20 lancets (ONETOUCH DELICA LANCETS) 33 gauge Misc [...] 100 MG tablet Take by mouth. 06/25/20 20 metoprolol tartrate (LOPRESSOR) 25 MG tablet Take 1 tablet (25 mg total) by mouth 2 times a day. 60 tablet 0 03/16/20 22 metoprolol tartrate (LOPRESSOR) 50 MG tablet Take by mouth. 0 06/25/20 20 mycophenolate (CELLCEPT) 250 mg capsule Take 1 capsule (250 mg total) by mouth 2 times a day. 60 capsule 11 03/10/2020 9:05 AM EDT 0 06/25/20 20 ondansetron (ZOFRAN) 4 MG tablet Take by mouth. 0 06/25/20 20 ondansetron (ZOFRAN-ODT) 4 MG disintegrating tablet Take 1 tablet (4 mg total) by mouth every 8 hours as needed. 8 04/28/20 24 oxyCODONE (ROXICODONE) 5 MG immediate release tablet Take 5 mg by mouth every 6 hours as needed. 0 06/25/20 20 oxyCODONE-acetamino phen (PERCOCET) 10-325 mg per tablet TAKE ONE TABLET BY MOUTH THREE TIMES DAILY NEEDED FOR SEVERE pain 0 06/25/20 20 pantoprazole (PROTONIX) 40 MG tablet Take 1 tablet (40 mg total) by mouth daily. 30 tablet 0 03/18/20 22 pen needle, diabetic 32 gauge x 5/32 Ndle Use as directed to inject insulin 4 times daily. 150 each 5 8 03/18/20 22 polyethylene glycol (MIRALAX) 17 gram packet Take 17 g by mouth 2 times a day as needed. 100 packet 9 06/25/20 20 proMETHazine (PHENERGAN) 25 MG tablet take 1 tablet by ORAL route every 6 hours as needed 9 06/25/20 20 QUEtiapine (SEROQUEL) 25 MG tablet Take 0.5 tablets (12.5 mg total) by mouth at bedtime. 15 tablet 0 11/01/19 22 valACYclovir (VALTREX) 1000 MG tablet Take [...] Long-term goal to be met by: 06/12/20 Bomb Loader Goal : = STG Patient Stated Goal [...] as needed upon discharge. Tanya Jackson PT [id number], DPT Pager: [phone] M-F: [phone] Time Start Time: 0844 Stop Time: 0910 Time Calculation (min): 26 min Charges $Therapeutic [...] ??? Nausea ??? SAL (nonalcoholic steatohepatitis) ??? custodial (current) use of insulin (CMS Dx) ??? [...] 10/2016 ??? TIPS Revision 04/2017 * Brandy Rievra, OT - 06/08/2020 9:58 AM EDT Occupational Therapy Treatment Name: Leoncio Ivelisse Rollins Jr. [...] dressing: Maximum assistance(Goal met and upgraded 06/08) [facility] Goal : Pt will complete a functional STS t/f with Lucrecia in prep for OOB ADL tasks. 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 OT Time Start Time: 08 Stop Time: 909 Time Calculation (min): 26 min OT Charges $Therapeutic Activity: 8-22 mins $Self Care/ADL/Home Management Trainin-22 mins Brandy Rivera MS, OTR/L [facility] Pager #: [phone] Department #: [phone] Hours: 3723-3736 Problem List Patient Active Problem List Diagnosis [...] ??? Nausea ??? SAL (nonalcoholic steatohepatitis) ??? custodial (current) use of insulin (CMS Dx) ??? [...] about Kvng that would like the social contact worker to answer. Review of Systems (Focused) Review [...] 7.5 / 5.3 \ / 259 / / 23.1 \ Differential 06/05/2020 N 72.5 L [...] include the following: ?? Principal Problem: Osteomyelitis ([facility] Dx) Active Problems: Liver transplant recipient ([facility] Dx) ?? #Osteomyelitis Patient with recent spinal [...] Assessment and plan Plan for discharge to [facility] tomorrow. Aby Cavazos MD Clinical Instructor Department of Internal Medicine 06/07/2020 2:54 PM * Erika Buenrostro PharmD - 06/07/2020 12:20 PM EDT Transplant Pharmacy [...] the primary service. Harish Buenrostro PharmD Transplant Medical Oncologist [phone] Cosigned by Karli Bowser PharmD at 06/09/2020 12:00 PM EDT Associated attestation - Karli Bowser PharmD - 06/09/2020 12:00 PM EDT I agree with the plan of care as outlined below by the resident/fellow, and will oversee and assistin the transplant-related pharmaceutical care of the patient as needed. Karli Bowser, Pharm.D. Clinical Plastics Heat Welder, Solid Organ Transplant Contact: EVault Clinical Pharmacist air carrier operations inspector pager [phone] * Orly Uriostegui PharmD - 06/07/2020 12:10 PM EDT Images from the original note were not included. [facility] Clinical Pharmacy Service: Vancomycin Monitoring Consult [...] 95 102 102 92 Resp: 18 18 18 Temp: 98 ??F (36.7 ??C) 97.6 ??F (36.4 ??C) TempSrc: Oral Oral SpO2: 99% 92% 92% Weight: (!) 251 lb 15.8 oz (114.3 kg) Height: I/O last 3 completed shifts: In: 1919 [P.O.:1919] Out: 200 [Urine:200] WBC, BUN, Creatinine (Last 7 days) WBC BUN Creatinine 5.3 10E3/uL 06/07/20 0727 44 mg/dL 06/07/20 0727 10.02 mg/dL 06/07/20 0727 5.3 10E3/uL 06/05/20 1200 36 mg/dL 06/06/20 0620 8.28 mg/dL 06/06/20 0620 4.4 10E3/uL 06/04/20 0657 28 mg/dL 06/05/20 1200 6.92 mg/dL 06/05/20 1200 [place] body weight: 66.1 kg (145 lb 11.6 oz) Adjusted ideal body weight: 85.4 kg (188 lb 3.7 oz) ESRD on HD --Cultures-- Microbiology Results Date and Time Order Name Sensitivity Status Organisms Specimen ID Source 06/03/2020 0831 Anaerobic culture Preliminary [id number] Back 06/03/2020 0831 Routine Culture plus Stain Final [id number] Back 05/28/2020 1541 #1 Blood culture-Peripheral Final [id number] Peripheral 05/28/2020 1404 #2 Blood culture-Peripheral Final [id number] Peripheral --Vancomycin Concentrations-- Lab Results (Last 7 [...] x 1 after HD today. It appears [id number] mg post HD will be a good vancomycin regimen for him. ?? Goal vancomycin trough of 15-20 mg/L ?? Will check vancomycin serum concentration prior to next dose. ?? Pharmacy will continue to monitor therapy for efficacy and toxicity. Thank you for the consult. Orly Uriostegui PharmD Hematology/Oncology Clinical Plastics Heat Welder Clinical Pharmacy On-Call Pager: 06/07/2020 12:10 PM [...] discectomy and posterior decompression at L4-L5) at [facility] 04/29. Patient is having worsening back paina [facility] [...] dosing PLACEHOLDER ORDER DATA : Date 06/05/20 0700 - 06/06/20 0659 06/06/20 0700 - 06/07/20 0659 Shift 6296-2453 8142-4073 8980-1756 24 Hour Total 9649-4604 5748-2069 6142-7523 24 Hour Total INTAKE P.O. 240 240 [...] (H) 06/06/2020 Lab Results Component Value Date [id number] 15.8 (L) 01/14/2019 Lab Results Component Value [...] He is agreeable to leave to a [facility] facility. - He was able to sit [...] 0.09 / 10 \ / 7 / 60 \ PT/INR/PTT - 06/05/2020 PT 16.8 INR 1.3 PTT 28.6 Lab Results Component Value Date TSH 3.59 01/27/2020 FREET4 1.03 10/20/2017 Lab 06/06/20 0951 06/05/20205706/05/20 1442 06/05/20 0839 POC GLU MONITORING DEVICE [...] include the following: ?? Principal Problem: Osteomyelitis ([facility] Dx) Active Problems: Liver transplant recipient ([facility] Dx) ?? #Osteomyelitis Patient with recent spinal [...] vanco + cefepime, Cefepime was stopped on 10/24, and Vanc to be continued for 8 [...] 06/06/2020 3:35 PM EDT Associated attestation - Aby Cavazos MD - 06/06/2020 3:35 PM EDT INTERNAL MEDICINE ATTENDING PHYSICIAN ATTESTATION Leoncio Oviedo Eh Ken was seen today on rounds with the team. I personally interviewed and examined the patient. I reviewed the documentation by the resident or medical student and agree as documented, except for additional comments or corrections listed below. Assessment and plan Stopped IV cefepime. Plan to treat with IV vancomycin for 8 weeks. Agreeable to discharge to [facility] with MWF HD. Anticipate will be medically [...] PLACEHOLDER ORDER Intake/Output last 3 shifts: Date 06/05/20699 - 06/06/2065806/06/20699 - 06/07/20 06 Shift 9099-3130 4283-6362 7005-7007 24 Hour Total 5607-2633 4409-9225 7383-0286 24 Hour Total INTAKE P.O. 240 240 [...] ID Source 06/03/2020 0831 Anaerobic culture Preliminary [id number] Back 06/03/2020 0831 Routine Culture plus Stain Final [id number] Back 05/28/2020 1541 #1 Blood culture-Peripheral Final [id number] Peripheral 05/28/2020 1404 #2 Blood culture-Peripheral Final [id number] Peripheral Assessment/Plan: Principal Problem: Osteomyelitis ([facility] Dx) Active Problems: Esophagitis Liver transplanted ([facility] Dx) Liver transplant recipient ([facility] Dx) Immunosuppression ([facility] Dx) History of liver transplant ([facility] Dx) ESRD (end stage renal disease) ([facility] Dx) Anemia, unspecified Leoncio Rollins Jr. is [...] PO and linezolid since 05/26/20. Presented to [facility] with worsening back pain and had CT lumbar spine concerning for L5-S1 discitis and OM with abnormal soft tissue and fluid density of posterior paraspinous L3-S1 tissues with extension into central canal at L5. Transferred to [facility] on 05/28/20. 1) Disicitis/ OM - [...] to follow. Dave Dave MD 06/06/2020 cell [phone] pager The HPI, ROS, physical exam, test results, and assessment & plan were reviewed and copied forward (with edits) from a note written by me on 06/02/20. I have reviewed and updated the history, physical exam, data, assessment, and plan of the note so that it reflects my evaluation and management of the patient. * Cecelia Womack PharmD - 06/05/2020 2:53 PM EDT Images from the original note were not included. [facility] Clinical Pharmacy Service: Vancomycin Monitoring Consult [...] 169/85 147/87 Pulse: 106 124 102 Resp: 16 18 18 Temp: 98.5 ??F (36.9 ??C) 98.8 ??F [...] mg/dL 06/03/20 0504 11.03 mg/dL 06/03/20 0504 [place] body weight: 66.1 kg (145 lb 11.6 oz) Adjusted ideal body weight: 85.8 kg (189 lb 1.8 oz) ESRD on HD --Cultures-- Microbiology Results Date and Time Order Name Sensitivity Status Organisms Specimen ID Source 06/03/2020 0831 Anaerobic culture Preliminary [id number] Back 06/03/2020 0831 Routine Culture plus Stain Preliminary [id number] Back 05/28/2020 1541 #1 Blood culture-Peripheral Final [id number] Peripheral 05/28/2020 1404 #2 Blood culture-Peripheral Final [id number] Peripheral --Vancomycin Concentrations-- Lab Results (Last 7 days) Vanc Rdm Vanc Tr 17.5 ug/mL 06/05/20 1200 17.7 ug/mL 06/01/20 0517 25.2 ug/mL [...] you for the consult. Cecelia Womack PharmD, [facility] Clinical Plastics Heat Welder Internal Medicine/Diabetes Now Pager [phone] Office: [phone] Clinical Pharmacist On-Call Pager [phone] 06/05/2020 2:53 PM * Jay Day MD [...] 7.4 / 5.3 \ / 281 / .1 \ Differential 06/05/2020 N 72.5 L 14.4 [...] include the following: ?? Principal Problem: Osteomyelitis ([facility] Dx) Active Problems: Liver transplant recipient ([facility] Dx) ?? #Osteomyelitis Patient with recent spinal [...] plan See if agreeable to discharge to [facility]. Confirmed his may visit if discharged there. [...] will complete lower body dressing: Maximum assistance Bomb Loader Goal : Pt will complete a functional OOB t/f in prep for ADL tasks. 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 Nausea ??? SAL (nonalcoholic steatohepatitis) ??? 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 [...] Admission Diagnosis: POST-OP INFECTION Date: 06/05/2020 Room: [address] [place] [address] Reviewed Pertinent hospital course: Yes Hospital Course [...] Long-term goal to be met by: 06/12/20 [facility] Goal : = STG Patient Stated Goal [...] as needed upon discharge. Tanya Jackson PT [id number], DPT Pager: [phone] M-F: [phone] Time Start Time: 0948 Stop Time: 1011 [...] ??? Nausea ??? SAL (nonalcoholic steatohepatitis) ??? custodial (current) use of insulin (CMS Dx) ??? [...] Bautista RD - 06/04/2020 1:00 PM EDT [facility] Medical Nutrition Therapy Reason(s) for Completion: [...] ??? Nausea ??? SAL (nonalcoholic steatohepatitis) ??? custodial (current) use of insulin (CMS Dx) ??? [...] Q6H ??? carBAMazepine 200 mg Oral Nightly (2100) [...] kg) Body mass index is 39.81 kg/m??. [place] Body Weight: 148 lb (67.27 kg) +/- [...] Needs based On: IBW, 67 kg Kcals/day: 9114-8109 kcal (25-30 kcal/kg) Protein g/day: 87-100 g [...] Cristóbal Rock RD, LD Clinical Dietitian Pager: [phone] * Kimber Alcantar MD - 06/04/2020 12:46 [...] discectomy and posterior decompression at L4-L5) at [facility] 04/29. Patient is having worsening back paina [facility] lumbar [...] PLACEHOLDER ORDER DATA : Date 06/03/20699 - 06/04/20 0606/04/20 07 - 06/05/20 0659 Shift 0238-3684 2690-0044 5409-7495 24 Hour Total 6907-8664 7331-1066 4311-5951 24 Hour Total INTAKE P.O. 360 480 [...] (H) 06/04/2020 Lab Results Component Value Date [id number] 15.8 (L) 01/14/2019 Lab Results Component Value [...] / \ 0.11 / 10 \ / / \ PT/INR/PTT - 06/04/2020 PT 16.5 INR [...] include the following: ?? Principal Problem: Osteomyelitis ([facility] Dx) Active Problems: Liver transplant recipient ([facility] Dx) ?? #Osteomyelitis Patient with recent spinal [...] MEDICINE ATTENDING PHYSICIAN ATTESTATION Leoncio Oviedo Eh was seen today on rounds with the [...] Hospital Day: 7 Chief Complaint/Reason for Follow-up: MRSPravin epidural abscess and diskitis at L5 in [...] Q6H ??? carBAMazepine 200 mg Oral Nightly (2100) [...] ORDER Intake/Output last 3 shifts: Date 06/03/20 07 - 06/04/20 0659 06/04/20 07 - 06/05/20 0659 Shift 0263-7184 6035-8611 9860-6849 24 Hour Total 7022-9618 5794-7966 4410-7205 24 Hour Total INTAKE P.O. 360 480 [...] 16.5* INR 1.3* Results for LEONCIO ROLLINS Ivelisse KEN ( ) as of 06/01/2020 16:30 Ref. Range 05/28/2020 15:41 05/30/2020 12:06 06/01/2020 05:17 Vancomycin Random Latest Units: ug/mL 16.3 22.9 Vancomycin Tr Latest Ref Range: 10.0 - 20.0 ug/mL 17.7 Microbiology Results Date and Time Order Name Sensitivity Status Organisms Specimen ID Source 06/03/2020 0831 Anaerobic culture Preliminary [id number] Back 06/03/2020 0831 Routine Culture plus Stain Preliminary [id number] Back 05/28/2020 1541 #1 Blood culture-Peripheral Final [id number] Peripheral 05/28/2020 1404 #2 Blood culture-Peripheral Final [id number] Peripheral Assessment/Plan: Principal Problem: Osteomyelitis ([facility] Dx) Active Problems: Esophagitis Liver transplanted (CMS Dx) Liver transplant recipient ([facility] Dx) Immunosuppression (CMS Dx) History of liver transplant (CMS Dx) ESRD (end stage renal disease) (CMS Dx) Anemia, unspecified Leoncio Rollins Jr. is [...] PO and linezolid since 05/26/20. Presented to [facility] with worsening back pain and had CT lumbar spine concerning for L5-S1 discitis and OM with abnormal soft tissue and fluid density of posterior paraspinous L3-S1 tissues with extension into central canal at L5. Transferred to [facility] on 05/28/20. 1) Disicitis/ OM - [...] to follow. Dave Dave MD 06/04/2020 cell [phone] pager The HPI, ROS, physical exam, test results, and assessment & plan were reviewed and copied forward (with edits) from a note written by me on 06/02/20. I have reviewed and updated the history, physical exam, data, assessment, and plan of the note so that it reflects my evaluation and management of the patient. * Cecelia Womack, PharmD - 06/04/2020 9:47 AM EDT Images from the original note were not included. [facility] Clinical Pharmacy Service: Vancomycin Monitoring Consult [...] 148/78 Pulse: 120 109 101 97 Resp: 18 Temp: 98.4 ??F (36.9 ??C) 98 ??F [...] mg/dL 06/02/20 0407 12.81 mg/dL 06/02/20 0407 [place] body weight: 66.1 kg (145 lb 11.6 oz) Adjusted ideal body weight: 85.8 kg (189 lb 1.8 oz) ESRD on HD --Cultures-- Microbiology Results Date and Time Order Name Sensitivity Status Organisms Specimen ID Source 06/03/2020 0831 Anaerobic culture Preliminary [id number] Back 06/03/2020 0831 Routine Culture plus Stain Preliminary [id number] Back 05/28/2020 1541 #1 Blood culture-Peripheral Final [id number] Peripheral 05/28/2020 1404 #2 Blood culture-Peripheral Final [id number] Peripheral --Vancomycin Concentrations-- Lab Results (Last 7 [...] the consult. Cecelia Womack, PharmD, BCPS Clinical Plastics Heat Welder Internal Medicine/Diabetes Now Pager [phone] Office: [phone] Clinical Pharmacist On-Call Pager [phone] 06/04/2020 9:47 AM * Kimber Alcantar MD - 06/03/2020 5:46 PM EDT Transplant Nephrology Consult Follow Up Note Assessment/Plan: - ESRD on home HD 5 days/week. - will keep MWF schedule while inpatient - hemodynamically stable, labs & volume status acceptable - Anemia - on Epo SAL Cirrhosis s/p OLT in 2018 - MMF being held due to Osteomyelitis - on Cyclosporine Recommendations: LUE US pending Plan for HD tomorrow KIMBER ALCANTAR [...] discectomy and posterior decompression at L4-L5) at [facility] 04/29. Patient is having worsening back paina [facility] [...] 0659 06/03/20 0700 - 06/04/20 0659 Shift 4970-6444 6141-6771 24 Hour Total 2201-3261 9489-8799 5384-4832 24 Hour Total INTAKE P.O. 240 360 [...] (H) 06/03/2020 Lab Results Component Value Date ACRE06P 15.8 (L) 01/14/2019 Lab Results Component Value [...] EDT Physical Therapy Treatment Name: Leoncio Ivelisse Rollnis Jr. : 1975 Attending Physician: Aby Cavazos [...] to demo decreased functional mobility this date 2/2 increased pain. Team notified. Pt able to [...] Long-term goal to be met by: 06/12/20 Bomb Loader Goal : = STG Patient Stated Goal [...] as needed upon discharge. Tanya Jackson PT [id number], DPT Pager: [phone] M-F: [phone] Time Start Time: 1325 Stop Time: 1422 [...] ??? Nausea ??? SAL (nonalcoholic steatohepatitis) ??? 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 [...] 10/2016 ??? TIPS Revision 04/2017 * Eneida Mar OT - 06/03/2020 2:33 PM EDT Occupational [...] will complete lower body dressing: Maximum assistance Bomb Loader Goal : Pt will complete a functional OOB t/f in prep for ADL tasks. watermelon harvesting supervisor goal to be met in: 2 weeks [...] Charges $Self Care/ADL/Home Management Trainin-67 mins KODAK Bartlett/Mic, [facility] Pager: Department Problem List Patient Active [...] ??? Nausea ??? SAL (nonalcoholic steatohepatitis) ??? custodial (current) use of insulin (CMS Dx) ??? [...] include the following: ?? Principal Problem: Osteomyelitis ([facility] Dx) Active Problems: Liver transplant recipient ([facility] Dx) ?? #Osteomyelitis Patient with recent spinal [...] 06/03/2020 1:41 PM EDT Associated attestation - bAy Cavazos MD - 06/03/2020 1:41 PM EDT [...] Internal Medicine 06/03/2020 1:39 PM * Cecelia Womack, DarrianD - 06/03/2020 8:38 AM EDT Images from the original note were not included. [facility] Clinical Pharmacy Service: Vancomycin Monitoring Consult [...] mg/dL 06/01/20 0517 11.79 mg/dL 06/01/20 0517 [place] body weight: 66.1 kg (145 lb 11.6 oz) Adjusted ideal body weight: 85.8 kg (189 lb 1.8 oz) ESRD on HD --Cultures-- Microbiology Results Date and Time Order Name Sensitivity Status Organisms Specimen ID Source 05/28/2020 1541 #1 Blood culture-Peripheral Final [id number] Peripheral 05/28/2020 1404 #2 Blood culture-Peripheral Final [id number] Peripheral --Vancomycin Concentrations-- Lab Results (Last 7 [...] you for the consult. Cecelia Womack PharmD, [facility] Clinical Plastics Heat Welder Internal Medicine/Diabetes Now Pager [phone] Office: [phone] Clinical Pharmacist On-Call Pager [phone] 06/03/2020 8:38 AM * Kimber Alcantar MD [...] home ([id number]), SAL cirrhosis s/p liver transplant 2017,??pulmonary HTN, JC, DM2, HTN, obesity admitted with complaint of subacute low back pain and weakness following spinalsurgery. ?? Patient underwent spinal surgery (lumbar laminectomy, discectomy and posterior decompression at L4-L5) at [facility] 04/29. Patient is having worsening back paina [facility] [...] ORDER DATA : Date 06/01/20 1500 - 06/02/2059 06/02/20 0700 - 06/03/20 0659 Shift 2103-7219 5481-4102 24 Hour Total 2111-0145 8434-1612 6330-3294 24 Hour Total INTAKE P.O. 340 580 [...] 126.1 126.1 126.1 126.1 126.1 Recent Labs 05/31/20 04206/01/20 0517 06/02/20 0407 WBC 7.6 6.4 6.3 HGB 7.8* 7.4* 7.1* HCT 23.4* 22.0* 21.3* PLT 329 337 325 Recent Labs 05/31/20 04206/01/20 0517 06/02/20 0407 NA 136 138 137 [...] (H) 06/02/2020 Lab Results Component Value Date EPAY45L 15.8 (L) 01/14/2019 Lab Results Component Value [...] as documented in the resident???s note. * Tanya Jackson, PT - 06/02/2020 4:18 PM EDT [...] Activity Level: Activity as tolerated Aide: Gem Assessment Pt tolerates PT session fair this date. [...] Long-term goal to be met by: 06/12/20 [facility] Goal : = STG Patient Stated Goal [...] as needed upon discharge. Tanya Jackson PT [id number], DPT Pager: [phone] M-F: [phone] Time Start Time: 1431 Stop Time: 1529 [...] ??? Nausea ??? SAL (nonalcoholic steatohepatitis) ??? 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 [...] ORDER Intake/Output last 3 shifts: Date 06/01/20 0700 - 06/02/20 0659 06/02/20 0700 - 06/03/20 0659 Shift 3414-7302 8072-7891 0953-0413 24 Hour Total 0185-8137 6963-0329 7433-7115 24 Hour Total INTAKE P.O. 240 340 [...] Mental Status: He is alert. Labs: Lab 06/02/20 0407 WBC 6.3 HEMOGLOBIN 7.1* HEMATOCRIT 21.3* MEAN CORPUSCULAR VOLUME 90.5 PLATELETS 325 Lab 06/02/20 0407 SODIUM 137 POTASSIUM 4.8 CHLORIDE 98 CO2 23 BUN 71* CREATININE 12.81* GLUCOSE 132* CALCIUM 9.6 MAGNESIUM 2.0 PHOSPHORUS 7.4* Lab 06/02/20 0407 ALK PHOS 77 AST 13 ALT 10 BILIRUBIN TOTAL 0.4 BILIRUBIN DIRECT 0.11 Lab 06/02/20 0407 PROTHROMBIN TIME 16.3* INR 1.3* Results for LEONCIO ROLLINS JR. ( ) as of 06/01/2020 16:30 Ref. Range 05/28/2020 15:41 05/30/2020 12:06 06/01/2020 05:17 Vancomycin Random Latest Units: ug/mL 16.3 22.9 Vancomycin Tr Latest Ref Range: 10.0 - 20.0 ug/mL 17.7 Microbiology Results Date and Time Order Name Sensitivity Status Organisms Specimen ID Source 05/28/2020 1541 #1 Blood culture-Peripheral Preliminary [id number] Peripheral 05/28/2020 1404 #2 Blood culture-Peripheral Preliminary [id number] Peripheral Assessment/Plan: Principal Problem: Osteomyelitis ([facility] Dx) Active Problems: Esophagitis Liver transplanted (CMS Dx) Liver transplant recipient (CMS Dx) Immunosuppression (CMS Dx) History of liver transplant (CMS Dx) ESRD (end stage renal disease) ([facility] Dx) Anemia, unspecified Leoncio Rollins Jr. is [...] PO and linezolid since 05/26/20. Presented to [facility] with worsening back pain and had CT lumbar spine concerning for L5-S1 discitis and OM with abnormal soft tissue and fluid density of posterior paraspinous L3-S1 tissues with extension into central canal at L5. Transferred to [facility] on 05/28/20. 1) Disicitis/ OM - [...] to follow. Dave Dave MD 06/02/2020 cell [phone] pager The HPI, ROS, physical exam, test [...] Random level tomorrow AM. Cecelia Womack PharmD, [facility] Clinical Plastics Heat Welder Internal Medicine/Diabetes Now Pager [phone] Office: [phone] Clinical Pharmacist On-Call Pager [phone] * María Galvez MD - 06/02/2020 6:08 [...] include the following: ?? Principal Problem: Osteomyelitis ([facility] Dx) Active Problems: Liver transplant recipient ([facility] Dx) ?? #Concern for Osteomyelitis Patient with [...] Diet NPO past midnight starting at 06/01 045 Code Status: Full Code Signed: MARÍA GALVEZ [...] Hospital Day: 4 Chief Complaint/Reason for Follow-up: MRSE epidural abscess and diskitis at L5 in [...] IV vanco after HD ([facility] in [place] ). His sts he has not been [...] linezolid starting May.. ?? May went to [facility] ED for recurrent LBP and weakness, transferred [...] last 3 shifts: Date 05/31/20 1500 - 06/01/20 0659 06/01/20 0700 - 06/02/20 0659 Shift 6601-7533 1479-2497 24 Hour Total 9972-7660 9607-0021 3658-0736 24 Hour Total INTAKE P.O. 240 240 [...] Mental Status: He is alert. Labs: Lab 06/01/20516 WBC 6.4 HEMOGLOBIN 7.4* HEMATOCRIT 22.0* MEAN CORPUSCULAR VOLUME 91.6 PLATELETS 337 Lab 06/01/20 0517 SODIUM 138 POTASSIUM 4.8 CHLORIDE 97* CO2 23 BUN 70* CREATININE 11.79* GLUCOSE 132* CALCIUM 9.5 MAGNESIUM 2.0 PHOSPHORUS 7.0* Lab 06/01/20 0517 ALK PHOS 73 AST 13 ALT 11 BILIRUBIN TOTAL 0.4 BILIRUBIN DIRECT 0.02 Lab 06/01/2017 PROTHROMBIN TIME 15.9* INR 1.2* Results for LEONCIO ROLLINS JR. ( ) as of 06/01/2020 16:30 Ref. Range 05/28/2020 15:41 05/30/2020 12:06 06/01/2020 05:17 Vancomycin Random Latest Units: ug/mL 16.3 22.9 Vancomycin Tr Latest Ref Range: 10.0 - 20.0 ug/mL 17.7 Microbiology Results Date and Time Order Name Sensitivity Status Organisms Specimen ID Source 05/28/2020 1541 #1 Blood culture-Peripheral Preliminary [id number] Peripheral 05/28/2020 1404 #2 Blood culture-Peripheral Preliminary [id number] Peripheral Assessment/Plan: Principal Problem: Osteomyelitis ([facility] Dx) Active Problems: Esophagitis Liver transplanted ([facility] Dx) Liver transplant recipient ([facility] Dx) Immunosuppression ([facility] Dx) History of liver transplant ([facility] Dx) ESRD (end stage renal disease) ([facility] Dx) Anemia, unspecified Continue IV vanco + [...] with questions Nadya Devries MD 06/01/2020 dig [phone] cell This note was copied forward from [...] Therapy Reason Patient Not Seen Name: Leoncio Ivelisse Rollins Jr. : 1975 Attending Physician: Aby Cavazos MD Admission Diagnosis: POST-OP INFECTION Date: 06/01/2020 Precautions: Reviewed Pertinent hospital course: Yes Unable to see patient due to: Therapy attempted to see pt at 1430 with pt off the floor at echo. Will follow-up with pt as medically appropriate and as therapy schedule permits. Thanks, Brandy Rivera MS, OTR/L [facility] Pager #: [phone] Department #: [phone] Hours: 8764-0585 * Kimber Alcantar MD - 06/01/2020 12:06 [...] discectomy and posterior decompression at L4-L5) at [facility] 04/29. Patient is having worsening back paina [facility] [...] dosing PLACEHOLDER ORDER DATA : Date 05/31/20 0700 - 06/01/20 0659 06/01/20 0700 - 06/02/20 0659 Shift 8106-3050 2677-7618 4018-2233 24 Hour Total 6444-3844 4989-3053 7622-3740 24 Hour Total INTAKE Shift Total(mL/kg) OUTPUT [...] (H) 06/01/2020 Lab Results Component Value Date NIMW96W 15.8 (L) 01/14/2019 Lab Results Component Value [...] edematous- ice applied to sites- * Cecelia Womack PharmD - 06/01/2020 9:14 AM EDT Images from the original note were not included. [facility] Clinical Pharmacy Service: Vancomycin Monitoring Consult [...] 0517 7.6 10E3/uL 05/31/20 0429 64 mg/dL 05/31/20428 10.62 mg/dL 10/18/20 0429 9.5 10E3/uL 05/30/20 2333 56 mg/dL 05/30/20 1206 10.01 mg/dL 05/30/20 1206 [place] body weight: 66.1 kg (145 lb 11.6 oz) Adjusted ideal body weight: 90.1 kg (198 lb 10.2 oz) ESRD on HD --Cultures-- Microbiology Results Date and Time Order Name Sensitivity Status Organisms Specimen ID Source 05/28/2020 1541 #1 Blood culture-Peripheral Preliminary [id number] Peripheral 05/28/2020 1404 #2 Blood culture-Peripheral Preliminary [id number] Peripheral --Vancomycin Concentrations-- Lab Results (Last 7 [...] you for the consult. Cecelia Womack PharmD, [facility] Clinical Plastics Heat Welder Internal Medicine/Diabetes Now Pager [phone] Office: [phone] Clinical Pharmacist On-Call Pager [phone] 06/01/2020 9:14 AM * Jay Day MD [...] LFTs 06/01/2020 \ 0.4 / \ 0.02 13 \ / / / 73 \ PT/INR/PTT - 06/01/2020 PT [...] include the following: ?? Principal Problem: Osteomyelitis ([facility] Dx) Active Problems: Liver transplant recipient ([facility] Dx) ?? #Concern for Osteomyelitis Patient with [...] ESR,CRP, Working on getting MRI imaging from [facility]. - blood cultures x2 : NGTD - [...] , , at home with AVF in [place]. Last dialysis on Monday and he was [...] dialysis 05/29/20. #SAL Cirrhosis s/p liver transplant 2018 No acute decompensation. Patient follows with Dr. [...] Hospital Day: 3 Chief Complaint/Reason for Follow-up: MRSE epidural abscess and diskitis at L5 in [...] op cx grew MRSE, S clinda, tcn, and T/S). His blood cultures were negative. He rc'd vanco while inpt until Apr, and discharge orders indicate he rc'd 750 mg IV vanco after HD ([facility] in [place] ). His sts he has notbeen out of bed since coming home, c/o LBP, ambulance took him to and from HD on 3 occasions, then his insurance stopped paying for ambulance rides, and he was unable to get to HD. Taking doxycyclinePO since discharge, and also linezolid since last week. ?? May went to [facility] ED for recurrent LBP and weakness, transferred [...] Intake/Output last 3 shifts: Date 05/30/20699 - 05/31/2065805/31/20699 - 06/01/20 0659 Shift 1689-7686 7762-5971 2876-8255 24 Hour Total 7358-4360 5315-7631 5562-7103 24 Hour Total INTAKE Shift Total(mL/kg) OUTPUT [...] 17.0* INR 1.4* Assessment/Plan: Principal Problem: Osteomyelitis (CMS Dx) Active Problems: Esophagitis Liver transplanted (CMS Dx) Liver transplant recipient ([facility] Dx) Immunosuppression (CMS Dx) History of liver transplant (CMS Dx) ESRD (end stage renal disease) ([facility] Dx) Anemia, unspecified Continue IV vanco + [...] call with questions Nadya Devries MD 05/31/2020 dig [phone] cell * Jay Day MD - 05/31/2020 11:33 AM EDT Department of Internal Medicine Daily Progress Note Chief Complaint / Reason for Follow-Up Leoncoi Rollins Jr. is a 45 y.o. male [...] , , at home with AV[place] [facility]. Last dialysis on Monday and he was [...] the primary service. Erika Buenrostro PharmD Transplant Medical Oncologist [phone] Cosigned by Karli Bowser PharmD at 06/01/2020 2:54 PM EDT Associated attestation - Karli Bowser PharmD - 06/01/2020 2:54 PM EDT I agree with the plan of care as outlined below by the resident/fellow, and will oversee and assistin the transplant-related pharmaceutical care of the patient as needed. Karli Goehring, Pharm.D. Clinical Plastics Heat Welder, Solid Organ Transplant Contact: EVault Clinical Pharmacist air carrier operations inspector pager [phone] * Vera Gómez MD - 05/31/2020 12:30 AM EDT [facility] DEPARTMENT OF NEUROSURGERY INPATIENT PROGRESS NOTE Leoncio Rollins Jr. [id number] 1975 NEUROSURGERY ATTENDING: Dr. Villalpando INTERVAL HISTORY: [...] PLAN: - Please obtain imaging from OSH ([facility]) for MRI comparison - Recommending trending ESR/CRP [...] hesitate to contact the neurosurgery residenton call, [phone]. This progress note/consult was copied forward from the note written by Dr. Alaniz. I have reviewedand updated the history, physical exam, data, assessment and plan of the note so it reflects the evaluation and management of the patient on today's date. Vera Gómez MD Neurosurgery, PGY1 p 0912 8:40 AM 05/31/2020 * Blake Dang, PharmD - 05/30/2020 2:02 PM EDT Images from the original note were not included. [facility] Clinical Pharmacy Service: Vancomycin Monitoring Consult [...] mg/dL 05/28/20 1404 13.63 mg/dL 05/28/20 1404 [place] body weight: 66.1 kg (145 lb 11.6 oz) Adjusted ideal body weight: 90.1 kg (198 lb 10.2 oz) ESRD on HD --Cultures-- Microbiology Results Date and Time Order Name Sensitivity Status Organisms Specimen ID Source 05/28/2020 1541 #1 Blood culture-Peripheral Preliminary [id number] Peripheral 05/28/2020 1404 #2 Blood culture-Peripheral Preliminary [id number] Peripheral --Vancomycin Concentrations-- Lab Results (Last 7 [...] and toxicity. Thank you for the consult. Christiano Dang, B.S. Pharm, Pharm.D. Clinical Plastics Heat Welder, Solid Organ Transplant -Please contact me via [employer] secure chat or cell phone with any [...] 01/27/2020 LFTs 05/30/2020 \ 0.4 / \ 0.08 \ / / \ PT/INR/PTT - 05/29/2020 PT 16.1 INR [...] include the following: ?? Principal Problem: Osteomyelitis ([facility] Dx) Active Problems: Liver transplant recipient (CMS [...] of Internal Medicine 05/30/2020 2:05 PM * Flcao Schwartz, RICARDO - 05/30/2020 10:30 AM EDT ABG obtained [...] Barba MD Gastroenterology and Hepatology Fellow Pager: [phone] (on weekdays after 5 pm and weekends/holidays, please page GI fellow air carrier operations inspector) * RT Nain - 05/29/2020 3:54 PM EDT Patient left cellphone in MRI department last night when MRI was attempted; I spoke with nurse and nurse stated to leave the phone with the [facility]. [facility] received cellphone at 1550 * Cecelia Womack PharmD - 05/29/2020 2:16 PM EDT Images from the original note were not included. [facility] Clinical Pharmacy Service: Vancomycin Monitoring Consult [...] 101/59 93/65 Pulse: 102 105 122 Resp: Temp: 98 ??F (36.7 ??C) 98.1 ??F (36.7 ??C) 97.9 ??F (36.6 ??C) TempSrc: Oral Oral SpO2: 95% 90% 90% Weight: No intake/output data recorded. WBC, BUN, Creatinine (Last 7 days) WBC BUN Creatinine 8.3 10E3/uL 05/29/20 0007 88 mg/dL 05/28/20 1404 13.63 mg/dL 05/28/20 1404 6.9 10E3/uL 05/28/20 1404 [place] body weight: 66.1 kg (145 lb 11.6 oz) Adjusted ideal body weight: 90.1 kg (198 lb 10.2 oz) ESRD on HD --Cultures-- Microbiology Results Date and Time Order Name Sensitivity Status Organisms Specimen ID Source 05/28/2020 1541 #1 Blood culture-Peripheral Preliminary [id number] Peripheral 05/28/2020 1404 #2 Blood culture-Peripheral Preliminary [id number] Peripheral --Vancomycin Concentrations-- Lab Results (Last 7 [...] you for the consult. Cecelia Womack PharmD, [facility] Clinical Plastics Heat Welder Internal Medicine/Diabetes Now Pager [phone] Office: [phone] Clinical Pharmacist On-Call Pager [phone] 05/29/2020 2:16 PM * Jay Day MD [...] include the following: ?? Principal Problem: Osteomyelitis ([facility] Dx) Active Problems: Liver transplant recipient ([facility] Dx) ?? #Concern for Osteomyelitis Patient with [...] weekly due to high risk donor (HBV ALEXANDAR +, HCV Ab+, ALEXANDRA negative) - Continue [...] Diet NPO past midnight starting at 05/28 7006 Code Status: Full Code Signed: JAY ADY MD 05/29/2020, 11:55 AM Cosigned by Abbie Cifuentes MD at 05/29/2020 12:01 PM EDT Associated attestation - Abbie Cifuentes MD - 05/29/2020 12:01 PM EDT See attestation on H&P. Abbie Cifuentes MD FACP Internal Medicine Purple Team Attending [facility] Department of Internal Medicine 05/29/2020 * Brandy Rivera, OT - 05/29/2020 10:57 AM EDT Occupational Therapy Initial Assessment Name: Leoncio Rollins JrUbaldo : 1975 Attending Physician: Abbie Cifuentes, * [...] Hobbies-yes (Comment) Leisure Activities: Go to the [employer] Pain Pain Score: 8 Pain Location: Leg(both) [...] will complete lower body dressing: Maximum assistance Bomb Loader Goal : Pt will complete a functional OOB t/f in prep for ADL tasks. watermelon harvesting supervisor goal to be met in: 2 weeks [...] Min: 1 Procedure Brandy Rivera MS, OTR/L [facility] Pager #: [phone] Department #: [phone] Hours: 1956-7678 Problem List Patient Active Problem List Diagnosis [...] disease) stage 3, GFR 30-59 ml/min ??? Vovup-am-epeenjd kidney injury (CMS Dx) ??? Metabolic acidosis [...] Physical Therapy Initial Assessment Name: Leoncio Rollins . : 1975 Attending Physician: Abbie Cifuentes, * [...] Vocation: On disability Leisure Activities: Go to [employer] Pain Pain Score: 8 Pain Location: Leg(both) [...] Long-term goal to be met by: 06/12/20 Bomb Loader Goal : = STG Patient Stated Goal [...] needed upon discharge. Eliz Wright, PT, MPT [facility] Physical Therapist Pager [phone] Office [phone] Shift: 7:00a- 3:30p M-F Time Start Time: [...] disease) stage 3, GFR 30-59 ml/min ??? Saecn-ty-gccbqob kidney injury (CMS Dx) ??? Metabolic acidosis [...] Alaniz MD - 05/29/2020 6:19 AM EDT [facility] DEPARTMENT OF NEUROSURGERY INPATIENT PROGRESS NOTE Leoncio Rollins Jr. [id number] 1975 NEUROSURGERY ATTENDING: Dr. Villalpando INTERVAL HISTORY: [...] pending - Would recommending obtaining imaging from [facility] for comparison. - Recommending trending ESR/CRP - [...] hesitate to contact the neurosurgery residenton call, [phone]. Jenny Alaniz Neurosurgery Resident [id number] Cosigned by Sancho Kathleen DO at 05/29/2020 6:26 AM EDT Associated attestation - Sancho Kathleen DO - 05/29/2020 6:26 AM EDT I reviewed the resident's note and agree. * Kelly Wyatt, RICARDO - 05/29/2020 1:48 AM EDT Patient stated [...] from the original note were not included. [facility] Clinical Pharmacy Service: Vancomycin Monitoring Consult --Assessment and Plan-- Patient is ESRD/HD dependent; unknown timing of last vancomycin dose given at OSH. Will obtain vancomycin level prior to repeating additional doses. Nani Brooks PharmD, [facility] Clinical Plastics Heat Welder, Internal Medicine Please contact me via Encite Secure Chat (preferred) or office phone ([phone]). You can reach the Clinical Pharmacist air carrier operations inspector using pager number [phone]. Indication: possible spinal OM Goal trough: pre [...] 05/28/2020 1404 #2 Blood culture-Peripheral In process [id number] Peripheral --Vancomycin Concentrations-- Lab Results (Last 7 days) No relevant labs found * Ara Watson MD - 05/28/2020 1:48 AM EDT [facility] - [facility] Department of Internal Medicine Outside Transfer / Direct Admission Note Referring Facility: Name: [facility] Records in Care Everywhere: No History, as reported: Leoncio Rollins JrUbaldo is a 45 y.o. male with a past medical history of liver cirrhosis s/p transplant (2017 at ), who presents with complaints of weakness and low backache. Patient reportedly had a spinal surgery (lumbar laminectomy, discectomy and posterior decompressionat L4-L5 level at [facility] last month (notes available in care everywhere). He was discharged home at the end of last month. He was being involved with PT and OT and was able to ambulate with assistance. However, he has been feeling progressively weaker in the past couple of days and has been having low back ache. Patient presented to the ED of [facility] with these compliants. The ED tried to transfer the patient to [facility], however, there was no bed available. As the patient has his transplant care done at , transfer to [facility] was requested. Objective, as reported: Last [...] Level of care: Floor Upon arrival to [facility], receiving team to consider the following: [...] Dawson MD - 05/29/2020 2:22 PM EDT [facility] PRE-SEDATION ASSESSMENT, HISTORY & PHYSICAL Date: 05/29/2020 [...] 2 times a day as needed. 01/17/19 Frank Valles MD ALPRAZolam (XANAX) 1 MG tablet [...] mouth. Twice a week Historical Provider, lancets (e2e MaterialsUCH DELICA LANCETS) 33 gauge Misc Use 1 strip as directed 4 times daily before meals and at bedtime. 10/18/17 Bere Feng CNP pen needle, diabetic 32 gauge x Ndle [...] & Physical Patient: Leoncio Rollins Jr. CSN: [id number] Chief Complaint Back pain History of Present [...] discectomy and posterior decompression at L4-L5) at [facility] 04/29 per patient report. Following the [...] retention. He presented to the ED at [facility] with these symptoms and CT lumbar [...] file Gets together: Not on file Attends druze service: Not on file Active member of [...] total) by mouth daily with breakfast. 10/17/17 Bree Feng CNP blood sugar diagnostic Strp Use to test blood sugar up to 4 times a day. Diagnosis for use: E 9.65.For use with One Touch Verio meters. 10/18/17 Bere Feng CNP blood-glucose meter (ONETOUCH VERIO SYSTEM) [facility] Use as instructed. 10/18/17 Bere Feng CNP [...] Provider, pen needle, diabetic 32 gauge x 5/32 Ndle Use as directed to inject insulin 4 times daily. 10/16/17 Bere Feng CNP polyethylene glycol (MIRALAX) 17 gram packet Take 17 g by mouth 2 times a day as needed. 01/17/19 Niurka Valles MD Inpatient Meds: Scheduled: ??? carBAMazepine 200 mg Oral Nightly (2100) [...] Diet NPO past midnight starting at 05/28 2359 Diet renal starting at 05/28 1315 Code [...] EGD scheduled for today. Abbie Cifuentes MD [facility] Internal Medicine [facility] Team Attending [facility] Department of Internal Medicine 05/29/2020 documented [...] of findings/procedures, which can be located in [facility] Procedures (or [facility] Imaging) Tabs. Case was reviewed with Heber Silva MD Plan discussed with provider Dr Jay Salinas from [facility] team 06/03/2020, 8:53 AM. Please call with any questions. JUAQUIN DELACRUZ DO Vascular & Interventional Radiology 06/03/2020, 8:53 AM [facility] and [facility]: [phone] * Gem Kaur MD - 06/02/2020 9:54 [...] of findings/procedures, which can be located in [facility] Procedures (or [facility] Imaging) Tabs. IR procedure was reviewed with Liberty Winchester MD Please call with any questions. GEM KAUR MD Vascular & Interventional Radiology 06/02/2020,9:54 AM [facility]: [phone] * Bayron Dawson MD - 05/29/2020 3:26 PM EDT EGD WITH BIOPSY Procedure Note Leoncio Rollins 05/28/2020 - 05/29/2020 Pre-op Diagnosis: Coffee ground [...] daily - Will follow pathology report Surgeon(s): Rahsid Winchester MD Anesthesia: General Staff: Fellow: Bayron Dawson MD Relief Endoscopy Nurse: Liat Moreno RN Bindery Operator: Steve Amin Estimated Blood Loss: Minimal Specimens: [...] Winchester MD - 05/29/2020 2:09 PM EDT [id number] Procedure Date: 05/29/2020 2:09 PM Patient Name: Leoncio Rollins Date of : 1975 Admit Type: Inpatient Age: 45 Gender: Male Note Status: Finalized Attending MD: Rashid WINCHESTER , Procedure: Upper GI endoscopy Indications: Coffee-ground emesis Patient Profile: 45 y.o.male with 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 Hematin (altered blood/xpjvgh-ekzdal-wcjf material) was found in the gastric body. [...] in the esophagus. Biopsied. - Hematin (altered blood/itzcbh-zobita-obmi material) in the gastric body. No evidence [...] pathology results. Procedure Code(s): --- Professional --- 09994, GC, Esophagogastroduodenoscopy, flexible, transoral; with biopsy, single or multiple Diagnosis Code(s): --- Professional --- K22.8, Other specified diseases of esophagus K92.2, Gastrointestinal hemorrhage, unspecified K92.0, Hematemesis CPT copyright 2019 [employer]. All rights reserved. The codes documented in this report are preliminary and upon outside machinist review may be revised to meet current compliance requirements. Attending Participation: I was present for the entire viewing portion, including introduction and removal of the scope. Rashid WINCHESTER, 05/31/2020 12:57:08 PM Bayron Porter MD Bayron Barba, 05/29/2020 4:01:12 PM Total Procedure Duration Time 0 hours 22 minutes 17 seconds Scope In: 2:47:11 PM Scope Out: 3:09:[address], [place], [place] [address] documented in this encounter Consult Notes * [...] Anesthesiology PGY-3 Inpatient Pain Service Pager - [phone](PAIN) Cosigned by Nikolas Garcia MD at 06/05/2020 6:30 AM EDT Associated attestation - Nikolas Garcia MD - 06/05/2020 6:30 AM EDT I saw and examined the patient, and discussed the case with the resident/fellow and agree with the findings and plan as documented in the resident/fellow's note. Name: Nikolas Garcia Date of Service: 06/03/2020 * Bob Gonzalez, DO - 06/02/2020 9:32 AM EDT Interventional Radiology Consult Note Date: 06/03/2020 Patient: Leoncio Rollins Jr. : 1975 Primary Care Provider: Edgar Fournier MD Requesting Provider: [facility] Medicine Chief Complaint: Post op back pain [...] and its performance characteristics determined by the [facility] Laboratory. This test has not been [...] Test results have been sent to the [facility] in accordance with state requirements. For a healthcare provider fact sheet, see https://www.fda.gov/media/314446/download. For a patient fact sheet, see https://www.fda.gov/media/240426/download. History: Past Medical History: Diagnosis Date ??? [...] tablet blood sugar diagnostic Strp blood-glucose meter ([employer] VERIO SYSTEM) Misc cephALEXin (KEFLEX) 500 MG [...] tablet ketoconazole (NIZORAL) 2 % shampoo lancets (e2e MaterialsUCH DELICA LANCETS) 33 gauge Misc linezolid (ZYVOX) [...] Lying Pulse: 124 126 116 Resp: 18 16 20 Temp: 99 ??F (37.2 ??C) 99.6 [...] deficits PSYCH: Appropriate affect Labs: Recent Labs 05/31/2042806/01/2051606/02/20 0407 WBC 7.6 6.4 6.3 HGB 7.8* 7.4* 7.1* HCT 23.4* 22.0* 21.3* MCV 91.6 91.6 90.5 PLT 329 337 325 Recent Labs 06/01/2051606/02/20 0407 06/03/20 0504 NA 138 137 138 K 4.8 4.8 4.7 CL 97* 98 98 CO2 23 23 26 PHOS 7.0* 7.4* 6.3* BUN 70* 71* 56* CREATININE 11.79* 12.81* 11.03* CALCIUM 9.5 9.6 9.7 Recent Labs 05/31/2042806/01/20 0517 06/02/20 0407 BILITOT 0.4 0.4 0.4 AST 11* 13 13 ALT 14 11 10 ALKPHOS 74 73 77 Recent Labs 05/31/2042806/01/2051606/02/20 0407 06/03/20 0504 ALBUMIN 3.2* 3.2* 3.4* 3.4* 3.4* 3.4* 3.5 BILIDIRECT 0.10 0.02 0.11 -- Recent Labs 05/31/20 0429 06/01/20 0517 06/02/20 0407 INR 1.4* 1.2* 1.3* [...] Vascular & Interventional Radiology 06/03/2020, 7:14 AM [facility]: [phone] * Roxi Pressley RN - 06/01/2020 9:31 [...] tablet blood sugar diagnostic Strp blood-glucose meter ([employer] VERIO SYSTEM) Misc cephALEXin (KEFLEX) 500 MG [...] Appropriate affect Labs: Recent Labs 05/30/20 2333 05/31/20 0429 06/01/20 [...] 8.8 9.2 9.5 Recent Labs 05/30/20 1206 05/31/20 0429 06/01/20 0517 BILITOT 0.4 0.4 0.4 AST [...] DO Vascular & Interventional Radiology 06/01/2020,10:47 AM [facility]: [phone] * Nadya Devries MD - 05/30/2020 9:55 AM EDTAssociated Order(s): INPATIENT CONSULT TO TRANSPLANT INFECTIOUS DISEASES [facility] DEPARTMENT OF INFECTIOUS DISEASE INITIAL NOTE Referring Physician: Aby Cavazos MD Consult Attending: Nadya Devries MD Patient: Leoncio Rollins Jr. CSN: [id number] Reason for Consult: Osteomyelitis, h/o OLT History [...] fevers, had L5 discitis with epidural abscess (MRSE, S clinda, tcn, and T/S grew from 1of 2 op spec), s/p L4-5 laminectomy, discectomy and posterior decompression on Apr. His blood cultures were negative. He rc'd vanco while inpt until Apr, and discharge orders indicate he rc'd750 mg IV vanco after HD ([facility] in [place] ). His sts he has not been out of bed since coming home, c/o LBP, ambulance takes him to and from HD. She has been giving him do xycycline PO, and also linezolid since earlier this week. 15 May went to [facility] ED for recurrent LBP and weakness, transferred [...] file Gets together: Not on file Attends druze service: Not on file Active member of [...] Refills: 5 Associated Diagnoses: S/P liver transplant ([facility] Dx); Hyperglycemia mycophenolate (CELLCEPT) 250 mg capsule [...] Refills: 5 blood-glucose meter (ONETOUCH VERIO SYSTEM) Misc Use as instructed. Qty: 1 each, Refills: 0 ergocalciferol (VITAMIN D2) 50,000 unit capsule Take 50,000 Units by mouth. Twice a week lancets (KCF TechnologiesTOUCH DELICA LANCETS) 33 gauge Misc Use 1 strip as directed 4 times daily before meals and at bedtime. Qty: 150 each, Refills: 5 pen needle, diabetic 32 gauge x Ndle Use as directed to inject insulin 4 times daily. Qty: 150 each, Refills: 5 Inpatient Meds: Scheduled: ??? carBAMazepine 200 mg Oral Nightly (2100) [...] denies diarrhea, confused (thinks he is in [place]). He rc'd xanax 1 mg and oxycodone [...] obese and syndromic appearance - oriented to [place], May. When asked about where hedialyzes, he [...] acute abnormalities. Assessment & Plan Leoncio Rollins Jr. is a 45 y.o. male Medical problems [...] Signed: Nadya Devries MD 05/30/2020, 9:55 AM [phone] dig [phone] * Roxi Pressley RN - 05/29/2020 5:42 PM EDTAssociated Order(s): IP Consult to [facility] IP Consult to [facility]GP[facility] Consult performed by: Roxi Pressley RN Consult ordered by: Abbie Cifuentes MD Assessment/Recommendations: PIV placed by OCCUPATIONAL THERAPIST ASSISTANTS in endoscopy. Pt has adequate access at this time. * Roxi Pressley RN - 05/29/2020 1:59 PM EDT Consults UGPIV RN RN spoke with primary RN. Pt currently in Endoscopy. Notified RN to please contact UGPIV RN when pt returns to unit if still requires access. * Maulik Moran RN - 05/29/2020 12:00 PM EDT [facility] Care Management/Social Work Assessment Patient Information Hospital Day: 1 Inpatient/Observation: Inpatient Admit Date: 05/28/2020 Admission Diagnosis: POST-OP INFECTION Attending provider: Abbie Cifuentes, * PCP: Edgar Fournier MD Home Pharmacy: [facility] [address] [facility] [address] [facility] - [place], [place] - [address] [facility] [phone] [facility] [address] [facility] [address] Pertinent Medications New Diabetic: No Issues related to obtaining medications: no Payor Information Medical Insurance Coverage: Payor: MEDICARE / Plan: MEDICARE A AND B / Product Type: Medicare / Secondary Payor: De Medicaid Functional Assessment Functional Assessment Assessment Information [...] Health Care Name/Phone #: [facility]/ [phone] Home Health Services Types Prior to Admission: PT/OT/RESIDENTIAL APPRAISER, Correction Dialysis Needs: Hemodialysis HD days of week: ///F/Sat at home [facility] [place] [facility] to if needed [phone] HD time of day: afternoon HD Transportation provided by: [employer] transportation Was any abuse reported by patient?: No Support Systems Emergency contact: Extended Emergency Contact Information Primary Emergency Contact: Kym Rollins Address: [address] [place] [address] Mobile Relation: Spouse Secondary Emergency Contact: Kimberly Rollins [facility] Relation: Mother Support Systems Legal Status: N/A Primary Caregiver: Family Times of available support: Total 24/7 hands on (add comment) Marital Status: Demographics [...] Patient has not filled out the official HCPOA paperwork but understands his spouse would be the legal NOK. Encouraged him to fill out paperwork so everyone is aware of his wishes. Patient lives with spouse and his son. He states he is independent with ADLs and IADLs. He does acknowledge his spouse is the primary career coordinator and she is always with him and helps him with personalcare. He reports his spouse is very knowledgeable about his care and how to help him best. He has home care set up with [facility], . Confirmed with them he has nursing and PT/OT. They will need HHC orders and dc summary faxed to them at [phone] on dc. Will send them some initial information this date. Patient does his hemodialysis at home 5 days/wk. He is associated with [facility], p) [phone]; f) [phone]. Talked with nurse at clinic who confirmed [...] as appropriate. MAULIK MORAN RN Phone Number: [phone] * Shayy Ballesteros MD - 05/29/2020 9:29 AM EDTAssociated Order(s): IP CONSULT TO LIVER HEPATOLOGY INITIAL CONSULT NOTE REASON FOR CONSULT: Immunosuppression management for hx of OLT HPI: Leoncio Rollins Jr. is a 45 y.o. male with a past medical history of SAL cirrhosis s/p transplant (09/2017 at ), ESRD on HD at home ([facility]), pulmonary HTN, JC, DM2, HTN, obesity, and recent spinal surgery (04/2020) who presents with complaints of weakness and low backache. Patient admitted at [facility] from 04/28-05/13/2020 for back pain, fever, [...] pain. Patient seen at OSH ED on ([facility]). CT lumbar spine demonstrated findings concerning for L5-S1 discitis and osteomyelitis with abnormal soft tissue and fluid density of posterior paraspinous tissues L3-S1 with apparent extension into the central canal at L5, suspicious for soft tissue infection. Patient then transferred to [facility] for further evaluation.Overnight from 05/28-05/29, patient had coffee ground emesis with slight drop in Hgb 7.9 -> 7.3. In regard to prior liver transplant, patient last seen in outpatient clinic by Dr. Ordoñez on 12/19/2019. Per Dr. Ordoñez's note: Patient received a [facility] high risk donor, who was HBV ALEXANDRA [...] Take by mouth. ??? blood sugar diagnostic Strp Use to test blood sugar up to 4 times a day. Diagnosis for use: E 9.65. For use with One Touch Verio meters. 150 strip 5 ??? blood-glucose meter (e2e MaterialsUCH VERIO SYSTEM) Misc Use as instructed. 1 each 0 ??? ergocalciferol (VITAMIN D2) 50,000 unit capsule Take 50,000 Units by mouth. Twice a week ??? lancets (KCF TechnologiesTOUCH DELICA LANCETS) 33 gauge Misc Use [...] (L) 07/25/2019 IMAGING: No recent imaging at [facility] CT Lumbar WO at OSH: - [...] Dr. Ordoñez, last seen 12/2019. Patientreceived a [facility] high risk donor, who was HBV ALEXANDRA [...] Arlene Mcclellan MD, MPH Transplant hepatology Pager: [phone] * Melvina Castellon MD - 05/29/2020 7:55 AM EDTAssociated Order(s): IP CONSULT TO RENAL Nephrology Consult H&P 05/29/2020 7:49 AM Patient: Leoncio Oviedo Eh Ken [id number] Date of Admit: 05/28/2020 LOS: 1 days Referring physician: Abbie Cifuentes, * Industrial Waste Inspector: Dr Carranza Date of Request: 05/29/2020 Date of Response: 05/29/2020 Reason for Consult Reason for consult: ESRD Chief complaint: back pain History of Present Illness Patient ESRD on HD at home ([facility]), SAL cirrhosis s/p liver transplant 2018, pulmonary HTN, JC, DM2, HTN, obesity admitted with complaint of subacute low back pain and weakness following spinal surgery. ?? Patient underwent spinal surgery (lumbar laminectomy, discectomy and posterior decompression at L4-L5) at [facility] 04/29. Patient is having worsening back paina and [facility] lumbar [...] rashes, wounds or itching Psych: no HI/SI REIMBURSEMENT REPRESENTATIVE: No headache or focal weakness. Patient has [...] Take by mouth. ??? blood sugar diagnostic [facility] Use to test blood sugar up to 4 times a day. Diagnosis for use: E 9.65. For use with One Touch Verio meters. 150 strip 5 Taking ??? blood-glucose meter (e2e MaterialsUCH VERIO SYSTEM) [facility] Use as instructed. 1 each 0 Taking ??? ergocalciferol (VITAMIN D2) 50,000 unit capsule Take 50,000 Units by mouth. Twice a week Unknown at Unknown time ??? lancets (ONETOUCH DELICA [...] this encounter: 278 lb (126.1 kg). Date 05/28/20699 - 05/29/20 0605/29/20699 - 05/30/20 0659 Shift 5886-7752 5326-8682 7393-4060 24 Hour Total 5974-2944 7632-9144 6112-9895 24 Hour Total INTAKE Shift Total(mL/kg) OUTPUT [...] Component Value Date PCO2 34 (L) 10/09/2017 [id number] 97.6 10/09/2017 Physical Exam General appearance: In [...] CO2UR, CRUR No results found for: MICROALBUR, [id number] Lab Results Component Value Date PTH 164.0 (H) 01/14/2019 CALCIUM 9.5 05/28/2020 PHOS 8.3 (H) 05/28/2020 Lab Results Component Value Date VQRH16I 15.8 (L) 01/14/2019 Anemia Labs: Lab Results Component Value Date IRON 24 (L) 07/21/2019 TIBC 202 (L) 07/21/2019 FERRITIN 433.9 (H) 07/21/2019 Lab Results Component Value Date EKMHEBKW27 499 07/22/2019 Sepsis Marker Labs: Recent Labs 05/28/20 1404 LACTATE 0.8 Lab Results Component Value Date FIBRINOGEN 454 (H) 07/20/2019 No results for input(s): TEGANGLE, TEGKTIME, FCPYOTDG93, TEGMAXAMPL, TEGRTIME, CBMZ in the last 72 [...] found for: HIV1X2 No results found for: DF4XYONJ No results found for: VDRLCSF Lab Results Component Value Date HEPAIGM Nonreactive 05/28/2020 HEPBCAB Nonreactive 05/28/2020 No results found for: QFQ8P1TF No results found for: JVM9G7JMLD In addition to the above an extensive [...] 34 (L) 10/09/2017 PO2ART 123 (H) 10/09/2017 UNO1IJZ 21 (L) 10/09/2017 BEART -2.9 (L) 10/09/2017 YNG6UPG 97.6 10/09/2017 Lab Results Component Value Date [...] team Sandra Carranza MD Transplant Nephrology Pager: [phone] * Jenny Alaniz MD - 05/28/2020 2:15 PM EDTAssociated Order(s): IP CONSULT TO SPINE SURGERY [facility] DEPARTMENT OF NEUROSURGERY INPATIENT CONSULTATION Patient: Leoncio Rollins . : 1975 NEUROSURGERY ATTENDING: Dr. Villalpando PRIMARY CARE PHYSICIAN: Edgar Fournier MD Time of Notification/Consultation: 05/28/2020 Time patient evaluated by author: 05/28/2020 Name of Referring Hospital/Institution: [facility] Medicine Team Referring provider: Attending Provider [...] retention. He presented to the ED at [facility] with these symptoms and CT lumbar [...] TIPS PROCEDURE 10/2016 ??? TIPS Revision 04/2017 [facility] Social History Socioeconomic History ??? Marital status: [...] file Gets together: Not on file Attends druze service: Not on file Active member of [...] Social History Narrative ??? Not on file [facility] Family History Problem Relation Age of Onset [...] hours as needed. 04/11/18 Yes Historical ProviderMD polyethylene glycol (MIRALAX) 17 gram packet Take 17 g by mouth 2 times a day as needed. 01/17/19 YesNiurka Valles MD ALPRAZolam (XANAX) 1 MG tablet Take by mouth. Historical Provider, blood sugar diagnostic Strp Use to test blood sugar up to 4 times a day. Diagnosis for use: E 9.65.For use with One Touch Verio meters. 10/18/17 Bere Feng CNP blood-glucose meter (KCF TechnologiesTOUCH VERIO SYSTEM) Misc Use as instructed. 10/18/17 Bere Feng CNP ergocalciferol (VITAMIN D2) 50,000 unit capsule Take 50,000 Units by mouth. Twice a week Historical Provider, lancets (e2e MaterialsUCH DELICA LANCETS) 33 gauge Misc Use 1 strip as directed 4 times daily before meals and at bedtime. 10/18/17 Bere Feng CNP pen needle, diabetic 32 gauge x /32 [...] 34 (L) 10/09/2017 PO2ART 123 (H) 10/09/2017 FZZ0RFR 21 (L) 10/09/2017 BEART -2.9 (L) 10/09/2017 [id number] 97.6 10/09/2017 Lab Results Component Value Date [...] contrast and recommending obtaining patient's old MRIfrom Zoroastrianism for comparison - Recommend repeating blood cultures as well as other infectious work up markers including, CBC, BMP, ESR, CRP - Abx per primary team/Transplant infectious disease; pathology from outside hospital S. Epi - Will discuss with staff If further questions or concerns should arise, do not hesitate to contact the neurosurgery residenton call, [phone]. Jenny Alaniz MD Neurosurgery Resident 2:15 PM [...] Patel RN - 06/01/2020 4:32 PM EDT DOOR FITTER notified this RN about pt blood pressure [...] a Crit Line Used for this Treatment? [place] of provider contacted to adjusted target fluid [...] (when available): As listed above Services Required Correction: Yes PT Interventions and Frequency: Treatment/Interventions: LE [...] Center 07/01/2020 2:30 PM Ravi Biswas MD [facility] CALI No follow-up provider specified. SNF to call their PCP for an appointment upon discharge. Physician Signature and Credentials I certify that I have reviewed the information contained herein, and that the information is a trueand accurate reflection of the individual's condition. Discharging Physician: Electronically signed by JAY DAY MD 06/08/2020, 2:22 PM SOCIAL WORK DOCUMENTATION Facility/Agency Name: [facility] Facility Name: [facility] Number to call report: [facility] Provider Contact Number: Report: [phone] Fax: [phone] Level of Care at Discharge: Less than 30 day convalescent stay: MILIND/HENS 7000 Completed: Family Member Name and Relationship Notified at Discharge: Kym Rollins Family Contact Number: in room Wares Sorter or [employer] Name and Telephone Number: Emelina Cook RN CM [phone] NURSE DISCHARGE ASSESSMENT Vitals: Patient Vitals for [...] deficiency. PCP: Edgar Fournier MD Home Pharmacy: [facility] [address] [facility] [address] [facility] [address] [facility] [address] [facility] [id number] [facility] [address] [facility] [address] [facility] [id number] Medical Insurance Coverage: Payor: MEDICARE / Plan: MEDICARE A AND B / Product Type: Medicare / Other Pertinent Information Spoke to pt at length about need for PT/OT after discharge. Still waiting on cultures for long termIV antibiotics for Osteo. Nely [facility] has also talked with him today. Pt will be going to [facility] level of care and they allow one visitor a day for 3 hours. He really needs to go to [facility] facility as it has the same doctors , an excellent rehab department and visitor policy. I think the waiting for discharge is making him worry. He will need another Covid test before admit to [facility]. Will task to weekend SW for possible Dc over the weekend. Discharge Plan Anticipated discharge plan: [facility] Anticipated discharge date: 06/07/2020 CM/SW will continue to follow and remain available for discharge planning needs. RUSSELL AC Cell [phone] * Plan of Care - Gypsy Granados [...] day: 7 Inpatient/Observation: Inpatient Level of Care: [facility] Team Admit date: 05/28/2020 Admission diagnosis: POST-OP [...] deficiency. PCP: Edgar Fournier MD Home Pharmacy: [facility] [address] [facility] [address] [facility] - [place], [place] - [address] [facility] [phone] [facility] [address] [facility] [address] Medical Insurance Coverage: Payor: MEDICARE / Plan: MEDICARE A AND B / Product Type: Medicare / Other Pertinent Information TC from [facility] Nely [phone]. She states they will take pt when [...] Just asking about visiting policy at [facility]. MD Team states awaiting cultures from IR procedure yesterday. Discharge Plan Anticipated discharge plan: [facility] Anticipated discharge date: 06/06/2020 CM/SW will continue to follow and remain available for discharge planning needs. RUSSELL AC Cell [phone] * Care Coordination - Russell Ac RN - 06/03/2020 1:58 PM EDT Case Management/Social Work Department Progress Note Patient Information Hospital day: 6 Inpatient/Observation: Inpatient Level of Care: Gary Perez Team Admit date: 05/28/2020 Admission diagnosis: POST-OP [...] deficiency. PCP: Edgar Fournier MD Home Pharmacy: [facility] [address] [facility] [address] [facility] - [place], [place] - [address] [facility] [phone] [facility] [address] [facility] [id number] Medical Insurance Coverage: Payor: MEDICARE / Plan: [...] He currently cannot walk. We discussed the [facility] facility and he had questions about where it was . It would be a good fit as they have dialysis on campus. He is from 2 hours away. He stated his would be here in the afternoon to further discuss this plan. He was also asking about a facility closer to [facility]. Referral sent to [facility] per [facility] so they can start to review. Awaiting cultures from IR epidural procedure today. Discharge Plan Anticipated discharge plan: Hopefully SNF Anticipated discharge date: 06/05/2020 CM/SW will continue to follow and remain available for discharge planning needs. RUSSELL AC Cell [phone] * Plan of Care - Rose Haynes [...] a Crit Line Used for this Treatment? Hephzibah of provider contacted to adjusted target fluid [...] interval progression of ventral abscess. A: Leoncio Oviedo Eh Parra., 45 y.o. male recent L4-5 Lami/Discectomy who [...] a Crit Line Used for this Treatment? Hephzibah of provider contacted to adjusted target fluid [...] Encounter [facility] [address] [place] [id number] Herve Carrillo MD [address] [facility] [address] [facility] [place] [address] Scheduled Orders Name Type Priority Associated Diagnoses Orde r Schedule Anaerobic culture Microbiology STAT Once for 1 Occurrences starting 06/03/2020 until 06/03/2020 Body Fluid Culture plus Stain Microbiology STAT Once for 1 Occur rences starting 06/03/2020 until 06/03/2020 documented as of [...] - 100 mg/dL 06/08/2020 5:06 PM EDT [facility] Blood specimen (specimen) 06/08/2020 5:05 PM EDT 06/08/2020 5:06 PM EDT us Aby Cavazos MD POINT OF CARE TEST ORDERABLES Fi nal Result [facility] [address] [facility]. [address] * (ABNORMAL) POC Glucose Monitoring Device (06/08/2020 3:33 PM EDT) POC Glucose Monitoring Device 174(H) 70 - 100 mg/dL 06/08/2020 3:43 PM EDT [facility] Blood specimen (specimen) 06/08/2020 3:33 PM EDT 06/08/2020 3:43 PM EDT us Aby Cavazos MD POINT OF CARE TEST ORDERABLES Fi nal Result Performing Organization Address City/[facility]/ZIP Co de Phone Number [address] * (ABNORMAL) POC Glucose Monitoring Device (06/08/2020 10:12 AM EDT) POC Glucose Monitoring Device 169(H) 70 - 100 mg/dL 06/08/2020 10:13 AM EDT [facility] Blood specimen (specimen) 06/08/2020 10:12 AM EDT 06/08/2020 10:13 AM EDT us Aby Cavazos MD POINT OF CARE TEST ORDERABLES Fi nal Result Performing Organization Address [facility]/ZIP Co de Phone Number [facility] [address] [facility]. [address] * (ABNORMAL) Cyclosporine level (06/08/2020 7:20 AM EDT) Cyclosporine, Blood <30(L) 100 - 400 ng/mL 06/08/2020 1:20 PM EDT [facility] Comment: Detection limit: ??30 ng/mL. ??Performed via chemiluminescent microparticle immunoassay on the [employer] i1000. Whole blood specimen (specimen) 06/08/2020 7:20 AM EDT 06/08/2020 8:06 AM EDT us Jay Day MD LAB BLOOD ORDERABLES Final Res ult [facility] [address] [place] [id number], [facility] * (ABNORMAL) Renal Function Panel w/EGFR (06/08/2020 7:20 AM EDT) Sodium 138 133 - 146 mmol/L 06/08/2020 8:34 AM EDT [facility] Potassium 4.5 3.5 - 5.3 mmol/L 06/08/2020 8:34 AM EDT [facility] Chloride 99 98 - 110 mmol/L 06/08/2020 8:34 AM EDT [facility] CO2 26 21 - 33 mmol/L 06/08/2020 8:34 AM EDT [facility] Anion Gap 13 3 - 16 mmol/L 06/08/2020 8:34 AM EDT [facility] BUN 49(H) 7 - 25 mg/dL 06/08/2020 8:34 AM EDT [facility] Creatinine 11.23(H) 0.60 - 1.30 mg/dL 06/08/2020 8:34 AM EDT [facility] Glucose 135(H) 70 - 100 mg/dL 06/08/2020 8:34 AM EDT [facility] Calcium 8.9 8.6 - 10.3 mg/dL 06/08/2020 8:34 AM EDT [facility] Phosphorus 5.8(H) 2.1 - 4.7 mg/dL 06/08/2020 8:34 AM EDT [facility] Albumin 2.9(L) 3.5 - 5.7 g/dL 06/08/2020 8:34 AM EDT [facility] Osmolality, Calculated 301 278 - 305 mOsm/kg 06/08/2020 8:34 AM EDT [facility] eGFR AA CKD-EPI 6 See note. 0 8:34 AM EDT [facility] Comment: As of 2015 the estimated GFR is calculated from serum creatinine using the Chronic Kidney Disease Epidemiology Collaboration (CKD-EPI) equation in patients 18 years and older. ??The reference range is >60 mL/min/1.73m2. ??eGFR values greater than 90 will be reported as >90mL/min/1.73m2. Reference: Isabel , Neftali LA, Marion CH, Ranulfo YL, 3rd Rojo Feldman HI, et. al. A new equation to estimate glomerular filtration rate. ??Russell [employer]. 2009:150(9):604-12 eGFR NONAA CKD-EPI 5 See note. 06/08/2020 8:34 AM EDT [facility] Comment: As of 2015 the estimated GFR is calculated from serum creatinine using the Chronic Kidney Disease Epidemiology Collaboration (CKD-EPI) equation in patients 18 years and older. ??The reference range is >60 mL/min/1.73m2. ??eGFR values greater than 90 will be reported as >90mL/min/1.73m2. Reference: Isabel , Neftali LA, Marion CH, Ranulfo QUEZADA, 3rd Rojo Feldman HI, et. al. A new equation to estimate glomerular filtration rate. ??Russell [employer]. 2009:150(9):604-12 Plasma specimen (specimen) 06/08/2020 7:20 AM EDT 06/08/2020 8:06 AM EDT us Jay Day MD LAB BLOOD ORDERABLES Final Res ult [facility] [address] [place] [address], [facility] * (ABNORMAL) Protime-INR (06/08/2020 7:20 AM EDT) Protime 14.9 12.1 - 15.1 seconds 06/08/2020 8:36 AM EDT [facility] INR 1.2(H) 0.9 - 1.1 06/08/2020 8:36 AM EDT [facility] Comment: RECOMMENDED THERAPEUTIC RANGES USING INR : ?Stable oral anticoagulant therapy: ? 2.0 - 3.0 ?Mechanical prosthetic heart valve: ? 2.5 - 3.5 ?Recurrent acute myocardial infarction: ? 2.5 - 3.5 Plasma specimen (specimen) 06/08/2020 7:20 AM EDT 06/08/2020 8:06 AM EDT Jay Day MD LAB BLOOD ORDERABLES Final Res ult Performing Organization Address [facility]/[place] de Phone Number [facility] [address] [facility]. [address] * Magnesium (06/08/2020 7:20 AM EDT) Magnesium 2.0 1.5 - 2.5 mg/dL 06/08/2020 8:34 AM EDT [facility] Plasma specimen (specimen) 06/08/2020 7:20 AM EDT 06/08/2020 8:06 AM EDT Jay Day MD LAB BLOOD ORDERABLES Final Res ult Performing Organization Address [facility]/[place] de Phone Number [facility] [address] * (ABNORMAL) Hepatic Function Panel (06/08/2020 7:20 AM EDT) Total Bilirubin 0.4 0.0 - 1.5 mg/dL 06/08/2020 8:34 AM EDT [facility] Bilirubin, Direct 0.08 0.00 - 0.40 mg/dL 06/08/2020 8:34 AM EDT [facility] AST 8(L) 13 - 39 U/L 06/08/2020 8:34 AM EDT [facility] ALT 6(L) 7 - 52 U/L 06/08/2020 8:34 AM EDT [facility] Alkaline Phosphatase 67 36 - 125 U/L 06/08/2020 8:34 AM EDT [facility] Total Protein 5.7(L) 6.4 - 8.9 g/dL 06/08/2020 8:34 AM EDT [facility] Albumin 2.9(L) 3.5 - 5.7 g/dL 06/08/2020 8:34 AM EDT [facility] Bilirubin, Indirect 0.32 0.00 - 1.10 mg/dL 06/08/2020 8:34 AM EDT [facility] Plasma specimen (specimen) 06/08/2020 7:20 AM EDT 06/08/2020 8:06 AM EDT Jay Day MD LAB BLOOD ORDERABLES Final Res ult [facility] [address] [place] [address], [facility] * (ABNORMAL) Differential (06/08/2020 7:20 AM EDT) Myelocytes Relative 8.8(H) 0.0 - 0.0 % 06/08/2020 8:51 AM EDT [facility] Metamyelocytes Relative 2.0(H) 0.0 - 0.0 % 06/08/2020 8:51 AM EDT [facility] Neutrophils Relative 57.8 40.0 - 80.0 % 06/08/2020 8:51 AM EDT [facility] Lymphocytes Relative 17.6 15.0 - 45.0 % 06/08/2020 8:51 AM EDT [facility] Monocytes Relative 6.9 0.0 - 12.0 % 06/08/2020 8:51 AM EDT [facility] Eosinophils Relative 5.9 0.0 - 8.0 % 06/08/2020 8:51 AM EDT [facility] Basophils Relative 0.0 0.0 - 1.0 % 06/08/2020 8:51 AM EDT [facility] Neutrophils Absolute 3,063 1,500 - 7,800 /uL 06/08/2020 8:51 AM EDT [facility] Metamyelocytes Absolute 106(H) 0 - 0 /uL 06/08/2020 8:51 AM EDT [facility] Myelocytes Absolute 466(H) 0 - 0 /uL 06/08/2020 8:51 AM EDT [facility] Lymphocytes Absolute 933 850 - 3,900 /uL 06/08/2020 8:51 AM EDT [facility] Monocytes Absolute 366 200 - 950 /uL 06/08/2020 8:51 AM EDT [facility] Eosinophils Absolute 313 15 - 500 /uL 06/08/2020 8:51 AM EDT [facility] Basophils Absolute 0 0 - 200 /uL 06/08/2020 8:51 AM EDT [facility] Polychromasia Present 06/08/2020 8:51 AM EDT [facility] Hypochromasia Present 06/08/2020 8:51 AM EDT [facility] PLT Morphology Platelet morphology appears normal 06/08/2020 8:51 AM EDT [facility] Whole blood specimen (specimen) 06/08/2020 7:20 AM EDT 06/08/2020 8:06 AM EDT us Jay Day MD LAB BLOOD ORDERABLES Final Res ult [facility] [address] * (ABNORMAL) CBC (06/08/2020 7:20 AM EDT) WBC 5.3 3.8 - 10.8 10E3/uL 06/08/2020 8:16 AM EDT [facility] RBC 2.43(L) 4.20 - 5.80 10E6/uL 06/08/2020 8:16 AM EDT [facility] Hemoglobin 7.2(L) 13.2 - 17.1 g/dL 06/08/2020 8:16 AM EDT [facility] Hematocrit 22.2(L) 38.5 - 50.0 % 06/08/2020 8:16 AM EDT [facility] MCV 91.2 80.0 - 100.0 fL 06/08/2020 8:16 AM EDT [facility] MCH 29.5 27.0 - 33.0 pg 06/08/2020 8:16 AM EDT [facility] MCHC 32.4 32.0 - 36.0 g/dL 06/08/2020 8:16 AM EDT [facility] RDW 15.3(H) 11.0 - 15.0 % 06/08/2020 8:16 AM EDT [facility] Platelets 246 140 - 400 10E3/uL 06/08/2020 8:16 AM EDT [facility] MPV 7.8 7.5 - 11.5 fL 06/08/2020 8:16 AM EDT [facility] Whole blood specimen (specimen) 06/08/2020 7:20 AM EDT 06/08/2020 8:06 AM EDT us Jay Day MD LAB BLOOD ORDERABLES Final Res ult Performing Organization Address City/[facility]/ZIP Co de Phone Number [facility] [address] [facility]. [address] * (ABNORMAL) C-Reactive Protein (06/08/2020 7:20 AM EDT) CRP 47.0(H) 1.0 - 10.0 mg/L 06/08/2020 8:34 AM EDT [facility] Plasma specimen (specimen) 06/08/2020 7:20 AM EDT 06/08/2020 8:06 AM EDT us María Galvez MD LAB BLOOD ORDERABLES Final Res ult Performing Organization Address [facility] Co de Phone Number [facility] [address] [facility]. [address] * (ABNORMAL) POC Glucose Monitoring Device (06/07/2020 5:55 PM EDT) POC Glucose Monitoring Device 171(H) 70 - 100 mg/dL 06/07/2020 5:56 PM EDT [facility] Blood specimen (specimen) 06/07/2020 5:55 PM EDT 06/07/2020 5:56 PM EDT us Aby Cavazos MD POINT OF CARE TEST ORDERABLES Fi nal Result Performing Organization Address City/[facility] Co de Phone Number [facility] [address] * (ABNORMAL) POC Glucose Monitoring Device (06/07/2020 12:50 PM EDT) POC Glucose Monitoring Device 123(H) 70 - 100 mg/dL 06/07/2020 12:51 PM EDT [facility] Blood specimen (specimen) 06/07/2020 12:50 PM EDT 06/07/2020 12:51 PM EDT Aby Cavazos MD POINT OF CARE TEST ORDERABLES Fi nal Result Performing Organization Address [facility] Co de Phone Number [facility] [address] * (ABNORMAL) Cyclosporine level (06/07/2020 7:27 AM EDT) Cyclosporine, Blood <30(L) 100 - 400 ng/mL 06/07/2020 12:49 PM EDT [facility] Comment: Detection limit: ??30 ng/mL. ??Performed via chemiluminescent microparticle immunoassay on the [employer] i1000. Whole blood specimen (specimen) 06/07/2020 7:27 AM EDT 06/07/2020 8:20 AM EDT Aby Cavazos MD LAB BLOOD ORDERABLES Final Resul t Performing Organization Address [facility]/[place] de Phone Number [facility] [address] [place] [address] * (ABNORMAL) Hepatic Function Panel, AM (06/07/2020 7:27 AM EDT) Total Bilirubin 0.4 0.0 - 1.5 mg/dL 06/07/2020 8:40 AM EDT [facility] Bilirubin, Direct 0.08 0.00 - 0.40 mg/dL 06/07/2020 8:40 AM EDT [facility] AST 10(L) 13 - 39 U/L 06/07/2020 8:40 AM EDT [facility] ALT 4(L) 7 - 52 U/L 06/07/2020 8:40 AM EDT [facility] Alkaline Phosphatase 63 36 - 125 U/L 06/07/2020 8:40 AM EDT [facility] Total Protein 6.0(L) 6.4 - 8.9 g/dL 06/07/2020 8:40 AM EDT [facility] Albumin 3.0(L) 3.5 - 5.7 g/dL 06/07/2020 8:40 AM EDT [facility] Bilirubin, Indirect 0.32 0.00 - 1.10 mg/dL 06/07/2020 8:40 AM EDT [facility] Plasma specimen (specimen) 06/07/2020 7:27 AM EDT 06/07/2020 8:09 AM EDT us Aby Cavazos MD LAB BLOOD ORDERABLES Final Resul t [facility] [address] [place] [id number], [facility] * (ABNORMAL) CBC, AM (06/07/2020 7:27 AM EDT) WBC 5.3 3.8 - 10.8 10E3/uL 06/07/2020 8:25 AM EDT [facility] RBC 2.52(L) 4.20 - 5.80 10E6/uL 06/07/2020 8:25 AM EDT [facility] Hemoglobin 7.5(L) 13.2 - 17.1 g/dL 06/07/2020 8:25 AM EDT [facility] Hematocrit 23.1(L) 38.5 - 50.0 % 06/07/2020 8:25 AM EDT [facility] MCV 91.8 80.0 - 100.0 fL 06/07/2020 8:25 AM EDT [facility] MCH 29.9 27.0 - 33.0 pg 06/07/2020 8:25 AM EDT [facility] MCHC 32.6 32.0 - 36.0 g/dL 06/07/2020 8:25 AM EDT [facility] RDW 15.1(H) 11.0 - 15.0 % 06/07/2020 8:25 AM EDT [facility] Platelets 259 140 - 400 10E3/uL 06/07/2020 8:25 AM EDT [facility] MPV 7.6 7.5 - 11.5 fL 06/07/2020 8:25 AM EDT [facility] Whole blood specimen (specimen) 06/07/2020 7:27 AM EDT 06/07/2020 8:09 AM EDT us Aby Cavazos MD LAB BLOOD ORDERABLES Final Resul t Performing Organization Address City/[facility]/ZIP Co de Phone Number [facility] [address] * Magnesium, AM (06/07/2020 7:27 AM EDT) Magnesium 2.1 1.5 - 2.5 mg/dL 06/07/2020 8:40 AM EDT [facility] Plasma specimen (specimen) 06/07/2020 7:27 AM EDT 06/07/2020 8:09 AM EDT us Aby Cavazos MD LAB BLOOD ORDERABLES Final Resul t Performing Organization Address [facility] Co de Phone Number [facility] [address] * (ABNORMAL) Renal Function Panel w/EGFR (06/07/2020 7:27 AM EDT) Sodium 139 133 - 146 mmol/L 06/07/2020 8:40 AM EDT [facility] Potassium 4.4 3.5 - 5.3 mmol/L 06/07/2020 8:40 AM EDT [facility] Chloride 99 98 - 110 mmol/L 06/07/2020 8:40 AM EDT [facility] CO2 26 21 - 33 mmol/L 06/07/2020 8:40 AM EDT [facility] Anion Gap 14 3 - 16 mmol/L 06/07/2020 8:40 AM EDT [facility] BUN 44(H) 7 - 25 mg/dL 06/07/2020 8:40 AM EDT [facility] Creatinine 10.02(H) 0.60 - 1.30 mg/dL 06/07/2020 8:40 AM EDT [facility] Glucose 121(H) 70 - 100 mg/dL 06/07/2020 8:40 AM EDT [facility] Calcium 9.3 8.6 - 10.3 mg/dL 06/07/2020 8:40 AM EDT [facility] Phosphorus 5.1(H) 2.1 - 4.7 mg/dL 06/07/2020 8:40 AM EDT [facility] Albumin 3.0(L) 3.5 - 5.7 g/dL 06/07/2020 8:40 AM EDT [facility] Osmolality, Calculated 300 278 - 305 mOsm/kg 06/07/2020 8:40 AM EDT [facility] eGFR AA CKD-EPI 6 See note. 0 8:40 AM EDT [facility] Comment: As of 2015 the estimated [...] equation to estimate glomerular filtration rate. ??Russell [employer]. 2009:150(9):604-12 eGFR NONAA CKD-EPI 6 See note. 06/07/2020 8:40 AM EDT [facility] Comment: As of 2015 the estimated [...] equation to estimate glomerular filtration rate. ??Russell [employer]. 2009:150(9):604-12 Plasma specimen (specimen) 06/07/2020 7:27 AM EDT 06/07/2020 8:09 AM EDT us Aby Cavazos MD LAB BLOOD ORDERABLES Final Resul t [facility] [address] [place] [id number], [facility] * Vancomycin, random (06/07/2020 7:27 AM EDT) Vancomycin Random 15.5 ug/mL 06/07/2020 8:35 AM EDT [facility] Comment:Reference range not established for this test. Plasma specimen (specimen) 06/07/2020 7:27 AM EDT 06/07/2020 8:09 AM EDT us Aby Cavazos MD LAB BLOOD ORDERABLES Final Resul t Performing Organization Address [facility] Co de Phone Number [facility] [address] * (ABNORMAL) POC Glucose Monitoring Device (06/06/2020 9:23 PM EDT) POC Glucose Monitoring Device 113(H) 70 - 100 mg/dL 06/06/2020 9:24 PM EDT [facility] Blood specimen (specimen) 06/06/2020 9:23 PM EDT 06/06/2020 9:24 PM EDT us Aby Cavazos MD POINT OF CARE TEST ORDERABLES Fi nal Result Performing Organization Address [facility] de Phone Number [facility] [address] [place] [address] * (ABNORMAL) POC Glucose Monitoring Device (06/06/2020 6:38 PM EDT) POC Glucose Monitoring Device 164(H) 70 - 100 mg/dL 06/06/2020 6:38 [address] EDT [facility] Blood specimen (specimen) 06/06/2020 6:38 PM EDT 06/06/2020 6:38 PM EDT us Aby Cavazos MD POINT OF CARE TEST ORDERABLES Fi nal Result Performing Organization Address [facility] Co de Phone Number [facility] [address] [place] [address] * (ABNORMAL) POC Glucose Monitoring Device (06/06/2020 2:16 PM EDT) POC Glucose Monitoring Device 153(H) 70 - 100 mg/dL 06/06/2020 2:16 PM EDT [facility] Blood specimen (specimen) 06/06/2020 2:16 PM EDT 06/06/2020 2:16 PM EDT us Aby Cavazos MD POINT OF CARE TEST ORDERABLES Fi nal Result Performing Organization Address City/[facility]/ZIP Co de Phone Number [facility] [address] * (ABNORMAL) POC Glucose Monitoring Device (06/06/2020 9:51 AM EDT) POC Glucose Monitoring Device 122(H) 70 - 100 mg/dL 06/06/2020 9:52 AM EDT [facility] Blood specimen (specimen) 06/06/2020 9:51 AM EDT 06/06/2020 9:52 AM EDT us Aby Cavazos MD POINT OF CARE TEST ORDERABLES Fi nal Result Performing Organization Address [facility] Co de Phone Number [facility] [address] [place] [address] * (ABNORMAL) Renal Function Panel w/EGFR (06/06/2020 6:20 AM EDT) Sodium 140 133 - 146 mmol/L 06/06/2020 8:01 AM EDT [facility] Potassium 4.2 3.5 - 5.3 mmol/L 06/06/2020 8:01 AM EDT [facility] Chloride 101 98 - 110 mmol/L 06/06/2020 8:01 AM EDT [facility] CO2 27 21 - 33 mmol/L 06/06/2020 8:01 AM EDT [facility] Anion Gap 12 3 - 16 mmol/L 06/06/2020 8:01 AM EDT [facility] BUN 36(H) 7 - 25 mg/dL 06/06/2020 8:01 AM EDT [facility] Creatinine 8.28(H) 0.60 - 1.30 mg/dL 06/06/2020 8:01 AM EDT [facility] Glucose 119(H) 70 - 100 mg/dL 06/06/2020 8:01 AM EDT [facility] Calcium 9.0 8.6 - 10.3 mg/dL 06/06/2020 8:01 AM T [facility] Phosphorus 4.9(H) 2.1 - 4.7 mg/dL 06/06/2020 8:01 AM T [facility] Albumin 2.9(L) 3.5 - 5.7 g/dL 06/06/2020 8:01 AM T [facility] Osmolality, Calculated 299 278 - 305 mOsm/kg 06/06/2020 8:[address] [facility] eGFR AA CKD-EPI 8 See note. 0 8:[address] [facility] Comment: As of 2015 the estimated GFR is calculated from serum creatinine using the Chronic Kidney Disease Epidemiology Collaboration (CKD-EPI) equation in patients 18 years and older. ??The reference range is >60 mL/min/1.73m2. ??eGFR values greater than 90 will be reported as >90mL/min/1.73m2. Reference: Neftali Castle Schmid CH, Ranulfo QUEZADA, 3rd Alia, Quan MILLER, et. al. A new equation to estimate glomerular filtration rate. ??[employer]. 2009:150(9):604-12 eGFR NONAA CKD-EPI 7 See note. 2019 8:[address] [facility] Comment: As of 2015 the [...] equation to estimate glomerular filtration rate. ??[employer]. 2009:150(9):604-12 Plasma specimen (specimen) 06/06/2020 6:20 AM EDT 06/06/2020 7:20 AM EDT us Aby Cavazos MD LAB BLOOD ORDERABLES Final Resul t [facility] [address] [facility]. [address] * (ABNORMAL) POC Glucose Monitoring Device (06/05/2020 8:58 PM EDT) POC Glucose Monitoring Device 115(H) 70 - 100 mg/dL 06/05/2020 9:01 PM EDT [facility] Blood specimen (specimen) 06/05/2020 8:58 PM EDT 06/05/2020 9:00 PM EDT us Aby Cavazos MD POINT OF CARE TEST ORDERABLES Fi nal Result Performing Organization Address [facility] Co de Phone Number [facility] [address] [facility]. [address] * 2019 Novel Coronavirus (CoVID-19), FRANKLYN-B (06/05/2020 6:42 PM EDT) SARS-CoV-2 Not Detected Not Detected 06/06/2020 10:52 AM EDT [facility] Comment: This test is an amplified nucleic acid assay performed on a real time PCR platform. ??This test was developed and its performance characteristics determined by the [facility]. ??This test has not been [...] ??Test results have been sent to the [facility] in accordance with state requirements. ??For a healthcare provider fact sheet, see https://www.fda.gov/media/739335/download. ??For a patient fact sheet, see https://www.fda.gov/media/937950/download. Test LOINC ordered 26055-9 2019 10:52 AM EDT [facility] Device identifier [employer]TaqPat h COVID-19 Combo Kit_EUA 06/06/2020 10:52 AM EDT [facility] First Test No 06/06/2020 10:52 AM EDT [facility] Healthcare employee No 06/06/2020 10:52 AM EDT [facility] Symptomatic No 06/06/2020 10:52 AM EDT [facility] Hospitalized Yes 06/06/2020 10:52 AM EDT [facility] In ICU No 06/06/2020 10:52 AM EDT [facility] Congregate Care Resident No 06/06/2020 10:52 AM EDT [facility] No 06/06/2020 10:52 AM EDT [facility] Nasopharyngeal swab (specimen) NASOPHARYNGEAL STRUCTURE / [...] FLUIDS AND STOOLS ORDERAB LES Final Result [facility] [address] [facility] [place] [address], [facility] * (ABNORMAL) POC Glucose Monitoring Device (06/05/2020 2:42 PM EDT) POC Glucose Monitoring Device 164(H) 70 - 100 mg/dL 06/05/2020 2:43 PM EDT [facility] Blood specimen (specimen) 06/05/2020 2:42 PM EDT 06/05/2020 2:42 PM EDT Aby Cavazos MD POINT OF CARE TEST ORDERABLES Fi nal Result [facility] [address] [place] [address], [facility] * VASC Venous Duplex Lower Extremity Bilateral [...] - 146 mmol/L 06/05/2020 1:07 PM EDT [facility] Potassium 4.4 3.5 - 5.3 mmol/L 06/05/2020 1:07 PM EDT [facility] Chloride 100 98 - 110 mmol/L 06/05/2020 1:07 PM EDT [facility] CO2 28 21 - 33 mmol/L 06/05/2020 1:07 PM EDT [facility] Anion Gap 11 3 - 16 mmol/L 06/05/2020 1:07 PM EDT [facility] BUN 28(H) 7 - 25 mg/dL 06/05/2020 1:07 PM EDT [facility] Creatinine 6.92(H) 0.60 - 1.30 mg/dL 06/05/2020 1:07 PM EDT [facility] Glucose 170(H) 70 - 100 mg/dL 06/05/2020 1:07 PM EDT [facility] Calcium 9.2 8.6 - 10.3 mg/dL 06/05/2020 1:07 PM EDT [facility] Phosphorus 4.5 2.1 - 4.7 mg/dL 06/05/2020 1:07 PM EDT [facility] Albumin 3.0(L) 3.5 - 5.7 g/dL 06/05/2020 1:07 PM EDT [facility] Osmolality, Calculated 297 278 - 305 mOsm/kg 06/05/2020 1:07 PM EDT [facility] eGFR AA CKD-EPI 10 See note. 0 1:07 PM EDT [facility] Comment: As of 2015 the estimated GFR is calculated from serum creatinine using the Chronic Kidney Disease Epidemiology Collaboration (CKD-EPI) equation in patients 18 years and older. ??The reference range is >60 mL/min/1.73m2. ??eGFR values greater than 90 will be reported as >90mL/min/1.73m2. Reference: Neftali Castle Schmid CH, Ranulfo QUEZADA, Colten KEARNEY, Quan neves, et. al. A new equation to estimate glomerular filtration rate. ??[employer]. 2009:150(9):604-12 eGFR NONAA CKD-EPI 9 See note. 2019 1:07 PM EDT [facility] Comment: As of 2015 the estimated [...] equation to estimate glomerular filtration rate. ??[employer]. 2009:150(9):604-12 Plasma specimen (specimen) 06/05/2020 12:00 PM EDT 06/05/2020 12:27 PM EDT us Jay Day MD LAB BLOOD ORDERABLES Final Res ult Performing Organization Address City/State/[facility] Co de Phone Number [facility] [address] * (ABNORMAL) Protime-INR (06/05/2020 12:00 PM EDT) Protime 16.8(H) 12.1 - 15.1 seconds 06/05/2020 12:51 PM EDT [facility] INR 1.3(H) 0.9 - 1.1 06/05/2020 12:51 PM EDT [facility] Comment: RECOMMENDED THERAPEUTIC RANGES USING INR : ?Stable oral anticoagulant therapy: ? 2.0 - 3.0 ?Mechanical prosthetic heart valve: ? 2.5 - 3.5 ?Recurrent acute myocardial infarction: ? 2.5 - 3.5 Plasma specimen (specimen) 06/05/2020 12:00 PM EDT 06/05/2020 12:27 PM EDT Jay Day MD LAB BLOOD ORDERABLES Final Res ult Performing Organization Address [facility] de Phone Number [facility] [address] [facility]. [address] * Magnesium (06/05/2020 12:00 PM EDT) Magnesium 2.0 1.5 - 2.5 mg/dL 06/05/2020 1:07 PM EDT [facility] Plasma specimen (specimen) 06/05/2020 12:00 PM EDT 06/05/2020 12:27 PM EDT Jay Day MD LAB BLOOD ORDERABLES Final Res ult Performing Organization Address [facility] de Phone Number [facility] [address] [facility]. [address] * (ABNORMAL) Hepatic Function Panel (06/05/2020 12:00 PM EDT) Total Bilirubin 0.4 0.0 - 1.5 mg/dL 06/05/2020 1:07 PM EDT [facility] Bilirubin, Direct 0.09 0.00 - 0.40 mg/dL 06/05/2020 1:07 PM EDT [facility] AST 10(L) 13 - 39 U/L 06/05/2020 1:07 PM EDT [facility] ALT 7 7 - 52 U/L 06/05/2020 1:07 PM EDT [facility] Alkaline Phosphatase 60 36 - 125 U/L 06/05/2020 1:07 PM EDT [facility] Total Protein 6.0(L) 6.4 - 8.9 g/dL 06/05/2020 1:07 PM EDT [facility] Albumin 3.0(L) 3.5 - 5.7 g/dL 06/05/2020 1:07 PM EDT [facility] Bilirubin, Indirect 0.31 0.00 - 1.10 mg/dL 06/05/2020 1:07 PM EDT [facility] Plasma specimen (specimen) 06/05/2020 12:00 PM EDT 06/05/2020 12:27 PM EDT us Jay Day MD LAB BLOOD ORDERABLES Final Res ult [facility] [address] * (ABNORMAL) Differential (06/05/2020 12:00 PM EDT) Scan Result PERFORMED 06/05/2020 1:19 PM EDT [facility] Neutrophils Relative 72.5 40.0 - 80.0 % 06/05/2020 1:19 PM EDT [facility] Lymphocytes Relative 14.4(L) 15.0 - 45.0 % 06/05/2020 1:19 PM EDT [facility] Monocytes Relative 9.9 0.0 - 12.0 % 06/05/2020 1:19 PM EDT [facility] Eosinophils Relative 3.0 0.0 - 8.0 % 06/05/2020 1:19 PM EDT [facility] Basophils Relative 0.2 0.0 - 1.0 % 06/05/2020 1:19 PM EDT [facility] nRBC 0 0 - 0 /100 WBC 06/05/2020 1:19 PM EDT [facility] Neutrophils Absolute 3,843 1,500 - 7,800 /uL 06/05/2020 1:19 PM EDT [facility] Lymphocytes Absolute 763(L) 850 - 3,900 /uL 06/05/2020 1:19 PM EDT [facility] Monocytes Absolute 525 200 - 950 /uL 06/05/2020 1:19 PM EDT [facility] Eosinophils Absolute 159 15 - 500 /uL 06/05/2020 1:19 PM EDT [facility] Basophils Absolute 11 0 - 200 /uL 06/05/2020 1:19 PM EDT [facility] PLT Morphology Platelet morphology appears normal 06/05/2020 1:19 PM EDT [facility] Whole blood specimen (specimen) 06/05/2020 12:00 PM EDT 06/05/2020 12:27 PM EDT us Jay Day MD LAB BLOOD ORDERABLES Final Res ult [facility] [address] * (ABNORMAL) CBC (06/05/2020 12:00 PM EDT) WBC 5.3 3.8 - 10.8 10E3/uL 06/05/2020 12:35 PM EDT [facility] RBC 2.43(L) 4.20 - 5.80 10E6/uL 06/05/2020 12:35 PM EDT [facility] Hemoglobin 7.4(L) 13.2 - 17.1 g/dL 06/05/2020 12:35 PM EDT [facility] Hematocrit 22.1(L) 38.5 - 50.0 % 06/05/2020 12:35 PM EDT [facility] MCV 90.9 80.0 - 100.0 fL 06/05/2020 12:35 PM EDT [facility] MCH 30.6 27.0 - 33.0 pg 06/05/2020 12:35 PM EDT [facility] MCHC 33.7 32.0 - 36.0 g/dL 06/05/2020 12:35 PM EDT [facility] RDW 14.8 11.0 - 15.0 % 06/05/2020 12:35 PM EDT [facility] Platelets 281 140 - 400 10E3/uL 06/05/2020 12:35 PM EDT [facility] MPV 7.6 7.5 - 11.5 fL 06/05/2020 12:35 PM EDT [facility] Whole blood specimen (specimen) 06/05/2020 12:00 PM EDT 06/05/2020 12:27 PM EDT us Jay Day MD LAB BLOOD ORDERABLES Final Res ult Performing Organization Address [facility]/ZIP Co de Phone Number [facility] [address] [facility]. [address] * Vancomycin, random (06/05/2020 12:00 PM EDT) Vancomycin Random 17.5 ug/mL 06/05/2020 12:57 PM EDT [facility] Comment:Reference range not established for this test. Plasma specimen (specimen) 06/05/2020 12:00 PM EDT 06/05/2020 12:27 PM EDT Aby Cavazos MD LAB BLOOD ORDERABLES Final Resul t Performing Organization Address [facility]/ZIP Co de Phone Number [facility] [address] [place] [address]. [address] * (ABNORMAL) POC Glucose Monitoring Device (06/05/2020 8:39 AM EDT) POC Glucose Monitoring Device 124(H) 70 - 100 mg/dL 06/05/2020 8:40 AM EDT [facility] Blood specimen (specimen) 06/05/2020 8:39 AM EDT 06/05/2020 8:40 AM EDT Aby Cavazos MD POINT OF CARE TEST ORDERABLES Fi nal Result Performing Organization Address [facility]/ZIP Co de Phone Number [facility] [address] [place] [address]. [address] * (ABNORMAL) POC Glucose Monitoring Device (06/04/2020 9:27 PM EDT) POC Glucose Monitoring Device 138(H) 70 - 100 mg/dL 06/04/2020 9:28 [address] [facility] Blood specimen (specimen) 06/04/2020 9:27 PM EDT 06/04/2020 9:28 PM EDT Result Yuri Cavazos MD POINT OF CARE TEST ORDERABLES Fi nal Result Performing Organization Address [facility] Co de Phone Number [facility] [address] [facility]. [address] * (ABNORMAL) POC Glucose Monitoring Device (06/04/2020 1:27 PM EDT) POC Glucose Monitoring Device 148(H) 70 - 100 mg/dL 06/04/2020 1:28 PM EDT [facility] Blood specimen (specimen) 06/04/2020 1:27 PM EDT 06/04/2020 1:28 PM EDT Result Yuri Cavazos MD POINT OF CARE TEST ORDERABLES Fi nal Result Performing Organization Address [facility] de Phone Number [facility] [address] [facility]. [address] * (ABNORMAL) POC Glucose Monitoring Device (06/04/2020 8:31 AM EDT) POC Glucose Monitoring Device 177(H) 70 - 100 mg/dL 06/04/2020 8:32 AM EDT [facility] Blood specimen (specimen) 06/04/2020 8:31 AM EDT 06/04/2020 8:32 AM EDT Result Yuri Cavazos MD POINT OF CARE TEST ORDERABLES Fi nal Result Performing Organization Address [facility] Co de Phone Number [facility] [address] [facility]. [address] * (ABNORMAL) Protime-INR (06/04/2020 6:57 AM EDT) Protime 16.5(H) 12.1 - 15.1 seconds 06/04/2020 8:08 AM EDT [facility] INR 1.3(H) 0.9 - 1.1 06/04/2020 8:08 AM EDT [facility] Comment: RECOMMENDED THERAPEUTIC RANGES USING INR : ?Stable oral anticoagulant therapy: ? 2.0 - 3.0 ?Mechanical prosthetic heart valve: ? 2.5 - 3.5 ?Recurrent acute myocardial infarction: ? 2.5 - 3.5 Plasma specimen (specimen) 06/04/2020 6:57 AM EDT 06/04/2020 7:28 AM EDT us Jay Day MD LAB BLOOD ORDERABLES Final Res ult Performing Organization Address City/State/[facility] Co de Phone Number [facility] [address] * (ABNORMAL) Hepatic Function Panel (06/04/2020 6:57 AM EDT) Total Bilirubin 0.4 0.0 - 1.5 mg/dL 06/04/2020 7:55 AM EDT [facility] Bilirubin, Direct 0.11 0.00 - 0.40 mg/dL 06/04/2020 7:55 AM EDT [facility] AST 10(L) 13 - 39 U/L 06/04/2020 7:55 AM EDT [facility] ALT 9 7 - 52 U/L 06/04/2020 7:55 AM EDT [facility] Alkaline Phosphatase 63 36 - 125 U/L 06/04/2020 7:55 AM EDT [facility] Total Protein 6.2(L) 6.4 - 8.9 g/dL 06/04/2020 7:55 AM EDT [facility] Albumin 3.1(L) 3.5 - 5.7 g/dL 06/04/2020 7:55 AM EDT [facility] Bilirubin, Indirect 0.29 0.00 - 1.10 mg/dL 06/04/2020 7:55 AM EDT [facility] Plasma specimen (specimen) 06/04/2020 6:57 AM EDT 06/04/2020 7:28 AM EDT Jay Day MD LAB BLOOD ORDERABLES Final Res ult [facility] [address] [place] [address], [facility] * (ABNORMAL) Renal Function Panel w/EGFR (06/04/2020 6:57 AM EDT) Sodium 137 133 - 146 mmol/L 06/04/2020 7:55 AM EDT [facility] Potassium 4.8 3.5 - 5.3 mmol/L 06/04/2020 7:55 AM EDT [facility] Chloride 97(L) 98 - 110 mmol/L 06/04/2020 7:55 AM EDT [facility] CO2 25 21 - 33 mmol/L 06/04/2020 7:55 AM EDT [facility] Anion Gap 15 3 - 16 mmol/L 06/04/2020 7:55 AM EDT [facility] BUN 64(H) 7 - 25 mg/dL 06/04/2020 7:55 AM EDT [facility] Creatinine 11.88(H) 0.60 - 1.30 mg/dL 06/04/2020 7:55 AM EDT [facility] Glucose 148(H) 70 - 100 mg/dL 06/04/2020 7:55 AM EDT [facility] Calcium 9.5 8.6 - 10.3 mg/dL 06/04/2020 7:55 AM EDT [facility] Phosphorus 7.6(H) 2.1 - 4.7 mg/dL 06/04/2020 7:55 AM EDT [facility] Albumin 3.1(L) 3.5 - 5.7 g/dL 06/04/2020 7:55 AM EDT [facility] Osmolality, Calculated 305 278 - 305 mOsm/kg 06/04/2020 7:55 AM EDT [facility] eGFR AA CKD-EPI 5 See note. 0 7:55 AM EDT [facility] Comment: As of 2015 the estimated [...] equation to estimate glomerular filtration rate. ??[employer]. 2009:150(9):604-12 eGFR NONAA CKD-EPI 5 See note. 06/04/2020 7:55 AM EDT [facility] Comment: As of 2015 the estimated [...] equation to estimate glomerular filtration rate. ??[employer]. 2009:150(9):604-12 Plasma specimen (specimen) 06/04/2020 6:57 AM EDT 06/04/2020 7:28 AM EDT Jay Day MD LAB BLOOD ORDERABLES Final Res ult Performing Organization Address City/State/[facility] Co de Phone Number [facility] [address] * Magnesium (06/04/2020 6:57 AM EDT) Magnesium 2.2 1.5 - 2.5 mg/dL 06/04/2020 7:55 AM EDT [facility] Plasma specimen (specimen) 06/04/2020 6:57 AM EDT 06/04/2020 7:28 AM EDT Jay Day MD LAB BLOOD ORDERABLES Final Res ult Performing Organization Address City/State/[facility] Co de Phone Number [facility] [address] [place] [address], [facility] * (ABNORMAL) Differential (06/04/2020 6:57 AM EDT) [...] - 8.0 % 06/04/2020 11:13 AM EDT [facility] Basophils Relative 0.0 0.0 - 1.0 % 06/04/2020 11:13 AM EDT [facility] Neutrophils Absolute 2,820 1,500 - 7,800 /uL 06/04/2020 11:13 AM EDT [facility] Bands Absolute 211 0 - 750 /uL 06/04/2020 11:13 AM EDT [facility] Metamyelocytes Absolute 128(H) 0 - 0 /uL 06/04/2020 11:13 AM EDT [facility] Myelocytes Absolute 216(H) 0 - 0 /uL 06/04/2020 11:13 AM EDT [facility] Lymphocytes Absolute 383(L) 850 - 3,900 /uL 06/04/2020 11:13 AM EDT [facility] Monocytes Absolute 299 200 - 950 /uL 06/04/2020 11:13 AM EDT [facility] Eosinophils Absolute 343 15 - 500 /uL 06/04/2020 11:13 AM EDT [facility] Basophils Absolute 0 0 - 200 /uL 06/04/2020 11:13 AM EDT [facility] RBC Morphology Normal 06/04/2020 11:13 AM EDT [facility] PLT Morphology Platelet morphology appears normal 06/04/2020 11:13 AM EDT [facility] Whole blood specimen (specimen) 06/04/2020 6:57 AM EDT 06/04/2020 7:28 AM EDT Jay Day MD LAB BLOOD ORDERABLES Final Res ult [facility] [address] [place], [place] [address] * (ABNORMAL) CBC (06/04/2020 6:57 AM EDT) WBC 4.4 3.8 - 10.8 10E3/uL 06/04/2020 7:44 AM EDT [facility] RBC 2.32(L) 4.20 - 5.80 10E6/uL 06/04/2020 7:44 AM EDT [facility] Hemoglobin 7.1(L) 13.2 - 17.1 g/dL 06/04/2020 7:44 AM EDT [facility] Hematocrit 21.2(L) 38.5 - 50.0 % 06/04/2020 7:44 AM EDT [facility] MCV 91.7 80.0 - 100.0 fL 06/04/2020 7:44 AM EDT [facility] MCH 30.5 27.0 - 33.0 pg 06/04/2020 7:44 AM EDT [facility] MCHC 33.2 32.0 - 36.0 g/dL 06/04/2020 7:44 AM EDT [facility] RDW 14.9 11.0 - 15.0 % 06/04/2020 7:44 AM EDT [facility] Platelets 272 140 - 400 10E3/uL 06/04/2020 7:44 AM EDT [facility] MPV 7.7 7.5 - 11.5 fL 06/04/2020 7:44 AM EDT [facility] Whole blood specimen (specimen) 06/04/2020 6:57 AM EDT 06/04/2020 7:28 AM EDT Jay Day MD LAB BLOOD ORDERABLES Final Res ult Performing Organization Address [facility] de Phone Number [facility] [address] [facility]. [address] * Vancomycin, random (06/04/2020 6:57 AM EDT) Vancomycin Random 25.2 ug/mL 06/04/2020 7:56 AM EDT [facility] Comment:Reference range not established for this test. Plasma specimen (specimen) 06/04/2020 6:57 AM EDT 06/04/2020 7:28 AM EDT us Aby Cavazos MD LAB BLOOD ORDERABLES Final Resul t Performing Organization Address [facility] Co de Phone Number [facility] [address] [facility]. [address] * (ABNORMAL) Cyclosporine level (06/04/2020 6:57 AM EDT) Pathologist [facility] Cyclosporine, Blood <30(L) 100 - 400 ng/mL 06/04/2020 2:01 PM EDT [facility] Comment: Detection limit: ??30 ng/mL. ??Performed via chemiluminescent microparticle immunoassay on the [employer] i1000. Whole blood specimen (specimen) 06/04/2020 6:57 AM EDT 06/04/2020 7:28 AM EDT us María Galvez MD LAB BLOOD ORDERABLES Final Res ult Performing Organization Address [facility] Co de Phone Number [facility] [address] [facility]. [address] * (ABNORMAL) POC Glucose Monitoring Device (06/03/2020 4:51 PM EDT) POC Glucose Monitoring Device 166(H) 70 - 100 mg/dL 06/03/2020 4:52 PM EDT [facility] Blood specimen (specimen) 06/03/2020 4:51 PM EDT 06/03/2020 4:52 PM EDT us Aby Cavazos MD POINT OF CARE TEST ORDERABLES Fi nal Result [facility] [address] [place] [address], [facility] * Duplex Scan Hemodialysis Access (06/03/2020 3:54 [...] - 100 mg/dL 06/03/2020 9:34 AM EDT [facility] Blood specimen (specimen) 06/03/2020 9:33 AM EDT 06/03/2020 9:34 AM EDT us Aby Cavazos MD POINT OF CARE TEST ORDERABLES Fi nal Result [facility] [address] [place] [address], [facility] * IR CT Aspiration Fine Needle ea [...] This finding was discussed with discussed with providerDrUbaldo Mary 06/03/2020,8:53 AM by telephone by Dr. [...] cultures and sensitivities. Operators: Juaquin Delacruz DO, Tape Calender Dr. Silva (VIR attending) present for the [...] for cultures andsensitivities. Operators: Juaquin Delacruz DO, Tape Calender Dr. Silva (VIR attending) present for the [...] was discussed withdiscussed with providerDr. Jay Genao [facility] 06/03/2020,8:53AM by telephone by Dr. Delacruz. They [...] Result No Anaerobes Isolated in 5 Days [facility] Fluid specimen (specimen) STRUCTURE OF BACK OF TRUNK / Unknown 06/03/2020 8:31 AM EDT 06/03/2020 10:47 AM EDT Narrative [facility] - 06/08/2020 2:30 PM EDT Paraspinal fluid collection Thioglycolate broth not utilized due to reagent shortage. Heber Silva MD MICROBIOLOGY - GENERAL ORDERABLES Final Result Performing Organization Address City/[facility]/ZIP Co de Phone Number [facility] [address] [facility]. [address] * Routine Culture plus Stain (06/03/2020 8:31 AM EDT) Gram Stain Result Many Polymorphonuclear Leukocytes Seen [facility] Gram Stain Result Rare Gram Positive Cocci In Pairs; [facility] Culture Result No Growth After 3 Days [facility] Fluid specimen (specimen) STRUCTURE OF BACK OF TRUNK / Unknown 06/03/2020 8:31 AM EDT 06/03/2020 10:47 AM EDT Narrative [facility] - 06/06/2020 8:17 AM EDT Paraspinal fluid collection Thioglycolate broth not utilized due to reagent shortage. Heber Silva MD MICROBIOLOGY - GENERAL ORDERABLES Final Result Performing Organization Address [facility] Co de Phone Number [facility] [address] * (ABNORMAL) CBC (06/03/2020 7:21 AM EDT) WBC 6.0 3.8 - 10.8 10E3/uL 06/03/2020 8:08 AM EDT [facility] RBC 2.51(L) 4.20 - 5.80 10E6/uL 06/03/2020 8:08 AM EDT [facility] Hemoglobin 7.6(L) 13.2 - 17.1 g/dL 06/03/2020 8:08 AM EDT [facility] Hematocrit 23.1(L) 38.5 - 50.0 % 06/03/2020 8:08 AM EDT [facility] MCV 92.2 80.0 - 100.0 fL 06/03/2020 8:08 AM EDT [facility] MCH 30.4 27.0 - 33.0 pg 06/03/2020 8:08 AM EDT [facility] MCHC 33.0 32.0 - 36.0 g/dL 06/03/2020 8:08 AM EDT [facility] RDW 15.1(H) 11.0 - 15.0 % 06/03/2020 8:08 AM EDT [facility] Platelets 335 140 - 400 10E3/uL 06/03/2020 8:08 AM EDT [facility] MPV 7.6 7.5 - 11.5 fL 06/03/2020 8:08 AM EDT [facility] Whole blood specimen (specimen) 06/03/2020 7:21 AM EDT 06/03/2020 7:41 AM EDT us María Galvez MD LAB BLOOD ORDERABLES Final Res ult Performing Organization Address City/[facility]/ZIP Co de Phone Number [facility] [address] [facility]. [address] * Vancomycin, random (06/03/2020 5:04 AM EDT) Vancomycin Random 29.8 ug/mL 06/03/2020 6:28 AM EDT [facility] Comment:Reference range not established for this test. Plasma specimen (specimen) 06/03/2020 5:04 AM EDT 06/03/2020 5:53 AM EDT us Aby Cavazos MD LAB BLOOD ORDERABLES Final Resul t [facility] [address] [place] [address]. [address] * Magnesium, AM (06/03/2020 5:04 AM EDT) Magnesium 2.0 1.5 - 2.5 mg/dL 06/03/2020 6:15 AM EDT [facility] Plasma specimen (specimen) 06/03/2020 5:04 AM EDT 06/03/2020 5:49 AM EDT us María Galvez MD LAB BLOOD ORDERABLES Final Res ult [facility] [address] [place] [address], [facility] * (ABNORMAL) Renal Function Panel w/EGFR (06/03/2020 5:04 AM EDT) Sodium 138 133 - 146 mmol/L 06/03/2020 6:15 AM EDT [facility] Potassium 4.7 3.5 - 5.3 mmol/L 06/03/2020 6:15 AM EDT [facility] Chloride 98 98 - 110 mmol/L 06/03/2020 6:15 AM EDT [facility] CO2 26 21 - 33 mmol/L 06/03/2020 6:15 AM EDT [facility] Anion Gap 14 3 - 16 mmol/L 06/03/2020 6:15 AM EDT [facility] BUN 56(H) 7 - 25 mg/dL 06/03/2020 6:15 AM EDT [facility] Creatinine 11.03(H) 0.60 - 1.30 mg/dL 06/03/2020 6:15 AM EDT [facility] Glucose 113(H) 70 - 100 mg/dL 06/03/2020 6:15 AM EDT [facility] Calcium 9.7 8.6 - 10.3 mg/dL 06/03/2020 6:15 AM EDT [facility] Phosphorus 6.3(H) 2.1 - 4.7 mg/dL 06/03/2020 6:15 AM EDT [facility] Albumin 3.5 3.5 - 5.7 g/dL 06/03/2020 6:15 AM EDT [facility] Osmolality, Calculated 302 278 - 305 mOsm/kg 06/03/2020 6:15 AM EDT [facility] eGFR AA CKD-EPI 6 See note. 0 6:15 AM EDT [facility] Comment: As of 2015 the estimated [...] equation to estimate glomerular filtration rate. ??[employer]. 2009:150(9):604-12 eGFR NONAA CKD-EPI 5 See note. 06/03/2020 6:15 AM EDT [facility] Comment: As of 2015 the estimated GFR is calculated from serum creatinine using the Chronic Kidney Disease Epidemiology Collaboration (CKD-EPI) equation in patients 18 years and older. ??The reference range is >60 mL/min/1.73m2. ??eGFR values greater than 90 will be reported as >90mL/min/1.73m2. Reference: Neftali Castle Schmid CH, Zhang YL, Castro AF, 3rd, Quan MILLER, et. al. A new equation to estimate glomerular filtration rate. ??[employer]. 2009:150(9):604-12 Plasma specimen (specimen) 06/03/2020 5:04 AM EDT 06/03/2020 5:49 AM EDT us María Galvez MD LAB BLOOD ORDERABLES Final Res ult [facility] [address] * (ABNORMAL) POC Glucose Monitoring Device (06/02/2020 9:49 PM EDT) POC Glucose Monitoring Device 139(H) 70 - 100 mg/dL 06/02/2020 9:49 PM EDT [facility] Blood specimen (specimen) 06/02/2020 9:49 PM EDT 06/02/2020 9:49 PM EDT us Aby Cavazos MD POINT OF CARE TEST ORDERABLES Fi nal Result Performing Organization Address [facility]/ZIP Co de Phone Number [facility] [address] * (ABNORMAL) POC Glucose Monitoring Device (06/02/2020 6:50 PM EDT) POC Glucose Monitoring Device 158(H) 70 - 100 mg/dL 06/02/2020 6:51 PM EDT [facility] Blood specimen (specimen) 06/02/2020 6:50 PM EDT 06/02/2020 6:51 PM EDT Aby Cavazos MD POINT OF CARE TEST ORDERABLES Fi nal Result Performing Organization Address City/[facility] Co de Phone Number [facility] [address] * (ABNORMAL) POC Glucose Monitoring Device (06/02/2020 1:05 PM EDT) POC Glucose Monitoring Device 199(H) 70 - 100 mg/dL 06/02/2020 1:06 PM EDT [facility] Blood specimen (specimen) 06/02/2020 1:05 PM EDT 06/02/2020 1:06 PM EDT Aby Cavazos MD POINT OF CARE TEST ORDERABLES Fi nal Result Performing Organization Address [facility]/[place] de Phone Number [facility] [address] * IR [employer] (06/02/2020 9:00 [...] - 400 ng/mL 06/02/2020 1:31 PM EDT [facility] Comment: Detection limit: ??30 ng/mL. ??Performed via chemiluminescent microparticle immunoassay on the [employer] i1000. Whole blood specimen (specimen) 06/02/2020 4:07 AM EDT 06/02/2020 4:33 AM EDT María Galvez MD LAB BLOOD ORDERABLES Final Res ult [facility] [address] [place] [address], [facility] * (ABNORMAL) Ferritin (06/02/2020 4:07 AM EDT) Ferritin 1,132.0(H) 23.9 - 336.2 ng/mL 06/02/2020 5:20 AM EDT [facility] Serum specimen (specimen) 06/02/2020 4:07 AM EDT 06/02/2020 4:33 AM EDT us Kimber Alcantar MD LAB BLOOD ORDERABLES Final Res ult Performing Organization Address [facility] Co de Phone Number [facility] [address] * (ABNORMAL) Iron Studies (Iron + TIBC) (06/02/2020 4:07 AM EDT) Iron 19(L) 50 - 212 ug/dL 06/02/2020 4:58 AM EDT [facility] % Iron Saturation 11.0(L) 15.0 - 55.0 % 06/02/2020 4:58 AM EDT [facility] TIBC 172(L) 261 - 462 ug/dL 06/02/2020 4:58 AM EDT [facility] Serum specimen (specimen) 06/02/2020 4:07 AM EDT 06/02/2020 4:33 AM EDT Kimber Alcantar MD LAB BLOOD ORDERABLES Final Res ult Performing Organization Address [facility] Co de Phone Number [facility] [address] * (ABNORMAL) Renal Function Panel w/EGFR (06/02/2020 4:07 AM EDT) Sodium 137 133 - 146 mmol/L 06/02/2020 5:05 AM EDT [facility] Potassium 4.8 3.5 - 5.3 mmol/L 06/02/2020 5:05 AM EDT [facility] Chloride 98 98 - 110 mmol/L 06/02/2020 5:05 AM EDT [facility] CO2 23 21 - 33 mmol/L 06/02/2020 5:05 AM EDT [facility] Anion Gap 16 3 - 16 mmol/L 06/02/2020 5:05 AM EDT [facility] BUN 71(H) 7 - 25 mg/dL 06/02/2020 5:05 AM EDT [facility] Creatinine 12.81(H) 0.60 - 1.30 mg/dL 06/02/2020 5:05 AM EDT [facility] Glucose 132(H) 70 - 100 mg/dL 06/02/2020 5:05 AM EDT [facility] Calcium 9.6 8.6 - 10.3 mg/dL 06/02/2020 5:05 AM EDT [facility] Phosphorus 7.4(H) 2.1 - 4.7 mg/dL 06/02/2020 5:05 AM T [facility] Albumin 3.4(L) 3.5 - 5.7 g/dL 06/02/2020 5:[address] [facility] Osmolality, Calculated 307(H) 278 - 305 mOsm/kg 06/02/2020 5:[address] [facility] eGFR AA CKD-EPI 5 See note. 0 5:[address] [facility] Comment: As of 2015 the [...] equation to estimate glomerular filtration rate. ??[employer]. 2009:150(9):604-12 eGFR NONAA CKD-EPI 4 See note. 06/02/2020 5:[address] [facility] Comment: As of 2015 the [...] equation to estimate glomerular filtration rate. ??[employer]. 2009:150(9):604-12 Plasma specimen (specimen) 06/02/2020 4:07 AM EDT 06/02/2020 4:33 AM EDT Jay Day MD LAB BLOOD ORDERABLES Final Res ult Performing Organization Address [facility]/[place] de Phone Number [facility] [address] [facility]. [address] * (ABNORMAL) Protime-INR (06/02/2020 4:07 AM EDT) Protime 16.3(H) 12.1 - 15.1 seconds 06/02/2020 4:52 AM EDT [facility] INR 1.3(H) 0.9 - 1.1 06/02/2020 4:52 AM EDT [facility] Comment: RECOMMENDED THERAPEUTIC RANGES USING INR : ?Stable oral anticoagulant therapy: ? 2.0 - 3.0 ?Mechanical prosthetic heart valve: ? 2.5 - 3.5 ?Recurrent acute myocardial infarction: ? 2.5 - 3.5 Plasma specimen (specimen) 06/02/2020 4:07 AM EDT 06/02/2020 4:33 AM EDT Jay Day MD LAB BLOOD ORDERABLES Final Res ult Performing Organization Address [facility]/[place] de Phone Number [facility] [address] * Magnesium (06/02/2020 4:07 AM EDT) Magnesium 2.0 1.5 - 2.5 mg/dL 06/02/2020 5:05 AM EDT [facility] Plasma specimen (specimen) 06/02/2020 4:07 AM EDT 06/02/2020 4:33 AM EDT Jay Day MD LAB BLOOD ORDERABLES Final Res ult Performing Organization Address [facility] Co de Phone Number [facility] [address] * (ABNORMAL) Hepatic Function Panel (06/02/2020 4:07 AM EDT) Total Bilirubin 0.4 0.0 - 1.5 mg/dL 06/02/2020 5:05 AM EDT [facility] Bilirubin, Direct 0.11 0.00 - 0.40 mg/dL 06/02/2020 5:05 AM EDT [facility] AST 13 13 - 39 U/L 06/02/2020 5:05 AM EDT [facility] ALT 10 7 - 52 U/L 06/02/2020 5:05 AM EDT [facility] Alkaline Phosphatase 77 36 - 125 U/L 06/02/2020 5:05 AM EDT [facility] Total Protein 6.4 6.4 - 8.9 g/dL 06/02/2020 5:05 AM EDT [facility] Albumin 3.4(L) 3.5 - 5.7 g/dL 06/02/2020 5:05 AM EDT [facility] Bilirubin, Indirect 0.29 0.00 - 1.10 mg/dL 06/02/2020 5:05 AM EDT [facility] Plasma specimen (specimen) 06/02/2020 4:07 AM EDT 06/02/2020 4:33 AM EDT Jay Day MD LAB BLOOD ORDERABLES Final Res ult Performing Organization Address [facility]/ZIP Co de Phone Number [facility] [address] [facility]. [address] * (ABNORMAL) Differential (06/02/2020 4:07 AM EDT) Myelocytes Relative 3.9(H) 0.0 - 0.0 % 06/02/2020 6:47 AM EDT [facility] Metamyelocytes Relative 3.9(H) 0.0 - 0.0 % 06/02/2020 6:47 AM EDT [facility] Neutrophils Relative 72.8 40.0 - 80.0 % 06/02/2020 6:47 AM EDT [facility] Lymphocytes Relative 12.6(L) 15.0 - 45.0 % 06/02/2020 6:47 AM EDT [facility] Monocytes Relative 4.9 0.0 - 12.0 % 06/02/2020 6:47 AM EDT [facility] Eosinophils Relative 1.9 0.0 - 8.0 % 06/02/2020 6:47 AM EDT [facility] Basophils Relative 0.0 0.0 - 1.0 % 06/02/2020 6:47 AM EDT [facility] Neutrophils Absolute 4,586 1,500 - 7,800 /uL 06/02/2020 6:47 AM EDT [facility] Metamyelocytes Absolute 246(H) 0 - 0 /uL 06/02/2020 6:47 AM EDT [facility] Myelocytes Absolute 246(H) 0 - 0 /uL 06/02/2020 6:47 AM EDT [facility] Lymphocytes Absolute 794(L) 850 - 3,900 /uL 06/02/2020 6:47 AM EDT [facility] Monocytes Absolute 309 200 - 950 /uL 06/02/2020 6:47 AM EDT [facility] Eosinophils Absolute 120 15 - 500 /uL 06/02/2020 6:47 AM EDT [facility] Basophils Absolute 0 0 - 200 /uL 06/02/2020 6:47 AM EDT [facility] RBC Morphology Normal 06/02/2020 6:47 AM EDT [facility] PLT Morphology Platelet morphology appears normal 06/02/2020 6:47 AM EDT [facility] Whole blood specimen (specimen) 06/02/2020 4:07 AM EDT 06/02/2020 4:33 AM EDT us Jay Day MD LAB BLOOD ORDERABLES Final Res ult [facility] [address] [place] [id number], [facility] * (ABNORMAL) CBC (06/02/2020 4:07 AM EDT) WBC 6.3 3.8 - 10.8 10E3/uL 06/02/2020 5:15 AM EDT [facility] RBC 2.35(L) 4.20 - 5.80 10E6/uL 06/02/2020 5:15 AM EDT [facility] Hemoglobin 7.1(L) 13.2 - 17.1 g/dL 06/02/2020 5:15 AM EDT [facility] Hematocrit 21.3(L) 38.5 - 50.0 % 06/02/2020 5:15 AM EDT [facility] MCV 90.5 80.0 - 100.0 fL 06/02/2020 5:15 AM EDT [facility] MCH 30.4 27.0 - 33.0 pg 06/02/2020 5:15 AM EDT [facility] MCHC 33.6 32.0 - 36.0 g/dL 06/02/2020 5:15 AM EDT [facility] RDW 14.5 11.0 - 15.0 % 06/02/2020 5:15 AM EDT [facility] Platelets 325 140 - 400 10E3/uL 06/02/2020 5:15 AM EDT [facility] MPV 7.6 7.5 - 11.5 fL 06/02/2020 5:15 AM EDT [facility] Whole blood specimen (specimen) 06/02/2020 4:07 AM EDT 06/02/2020 4:33 AM EDT Jay Day MD LAB BLOOD ORDERABLES Final Res ult Performing Organization Address City/State/[facility] Co de Phone Number [facility] [address] * Vancomycin, random (06/02/2020 4:07 AM EDT) Vancomycin Random 16.1 ug/mL 06/02/2020 5:06 AM EDT [facility] Comment:Reference range not established for this test. Plasma specimen (specimen) 06/02/2020 4:07 AM EDT 06/02/2020 4:33 AM EDT us Aby Cavazos MD LAB BLOOD ORDERABLES Final Resul t Performing Organization Address [facility] Co de Phone Number [facility] [address] * (ABNORMAL) POC Glucose Monitoring Device (06/01/2020 5:50 PM EDT) POC Glucose Monitoring Device 153(H) 70 - 100 mg/dL 06/01/2020 5:51 PM EDT [facility] Blood specimen (specimen) 06/01/2020 5:50 PM EDT 06/01/2020 5:50 PM EDT us Aby Cavazos MD POINT OF CARE TEST ORDERABLES Fi nal Result Performing Organization Address [facility] Co de Phone Number [facility] [address] * X-ray Comparison Images (06/01/2020 5:38 PM EDT) Narrative EXTERNAL - 06/01/2020 5:38 PM EDT Images associated with this accession number were presented to us for comparison to an examination performed here. us María Galvez MD IMG DIAGNOSTIC IMAGING ORDERAB LES Final Result Performing Organization Address [facility]/[place] de Phone Number EXTERNAL * Echo 2D Complete (TTE) (06/01/2020 2:49 PM EDT) 06/01/2020 2:22 PM EDT Narrative RADNET - 06/01/2020 3:06 PM EDT ?* [facility]* ?[address] ? [place] [address] ? [phone] Transthoracic Echocardiography Patient: ?Leoncio Rollins MR #: ? [id number] Account: Study Date: 06/01/2020 Gender: ? M Age: ?45 : ?1975 Room: ? [facility] PERFORMING ?? Thania Hamilton MD POLICE MATRON ??ADRIANO [facility] ORDERING ? María Galvez REFERRING [...] ES, 2-p ?(N) ?? 34 ?ml/m^2 ?? 34 Right atrium ?Value ?07/22/2019 Ref Area, [...] Reviewed and confirmed by Thania Hamilton MD [id number] Procedure Note Thania Hamilton MD - 06/01/2020 * [facility]* [address] [place] [address] Transthoracic Echocardiography Patient: Leoncio Rollins MR #: [id number] Account: Study Date: 06/01/2020 Gender: M Age: 45 : 1975 Room: [facility] PERFORMING Thania Hamilton MD POLICE MATRON Albertina Roth [facility] ORDERING María Galvez REFERRING María Galvez [...] Reviewed and confirmed by Thania Hamilton MD [id number] us María Galvez MD CV ECHO ORDERABLES Final Resul t [facility] * (ABNORMAL) POC Glucose Monitoring Device (06/01/2020 11:27 AM EDT) POC Glucose Monitoring Device 144(H) 70 - 100 mg/dL 06/01/2020 11:28 AM EDT [facility] Blood specimen (specimen) 06/01/2020 11:27 AM EDT 06/01/2020 11:27 AM EDT us Aby Cavazos MD POINT OF CARE TEST ORDERABLES Fi nal Result Performing Organization Address City/[facility]/ZIP Co de Phone Number [facility] [address] * (ABNORMAL) Renal Function Panel w/EGFR (06/01/2020 5:17 AM EDT) Sodium 138 133 - 146 mmol/L 06/01/2020 6:52 AM EDT [facility] Potassium 4.8 3.5 - 5.3 mmol/L 06/01/2020 6:52 AM EDT [facility] Chloride 97(L) 98 - 110 mmol/L 06/01/2020 6:52 AM EDT [facility] CO2 23 21 - 33 mmol/L 06/01/2020 6:52 AM EDT [facility] Anion Gap 18(H) 3 - 16 mmol/L 06/01/2020 6:52 AM EDT [facility] BUN 70(H) 7 - 25 mg/dL 06/01/2020 6:52 AM EDT [facility] Creatinine 11.79(H) 0.60 - 1.30 mg/dL 06/01/2020 6:52 AM EDT [facility] Glucose 132(H) 70 - 100 mg/dL 06/01/2020 6:52 AM EDT [facility] Calcium 9.5 8.6 - 10.3 mg/dL 06/01/2020 6:52 AM EDT [facility] Phosphorus 7.0(H) 2.1 - 4.7 mg/dL 06/01/2020 6:52 AM EDT [facility] Albumin 3.4(L) 3.5 - 5.7 g/dL 06/01/2020 6:52 AM EDT [facility] Osmolality, Calculated 308(H) 278 - 305 mOsm/kg 06/01/2020 6:52 AM EDT [facility] eGFR AA CKD-EPI 5 See note. 0 6:52 AM EDT [facility] Comment: As of 2015 the estimated [...] equation to estimate glomerular filtration rate. ??[employer]. 2009:150(9):604-12 eGFR NONAA CKD-EPI 5 See note. 06/01/2020 6:52 AM EDT [facility] Comment: As of 2015 the estimated [...] equation to estimate glomerular filtration rate. ??[employer]. 2009:150(9):604-12 Plasma specimen (specimen) 06/01/2020 5:17 AM EDT 06/01/2020 6:09 AM EDT us Faysal Alhasan MD LAB BLOOD ORDERABLES Final Res ult Performing Organization Address [facility]/[place] de Phone Number [facility] [address] * (ABNORMAL) Protime-INR (06/01/2020 5:17 AM EDT) Protime 15.9(H) 12.1 - 15.1 seconds 06/01/2020 6:24 AM EDT [facility] INR 1.2(H) 0.9 - 1.1 06/01/2020 6:24 AM EDT [facility] Comment: RECOMMENDED THERAPEUTIC RANGES USING INR : ?Stable oral anticoagulant therapy: ? 2.0 - 3.0 ?Mechanical prosthetic heart valve: ? 2.5 - 3.5 ?Recurrent acute myocardial infarction: ? 2.5 - 3.5 Plasma specimen (specimen) 06/01/2020 5:17 AM EDT 06/01/2020 6:08 AM EDT Jay Day MD LAB BLOOD ORDERABLES Final Res ult Performing Organization Address [facility] Co de Phone Number [facility] [address] * Magnesium (06/01/2020 5:17 AM EDT) Magnesium 2.0 1.5 - 2.5 mg/dL 06/01/2020 6:52 AM EDT [facility] Plasma specimen (specimen) 06/01/2020 5:17 AM EDT 06/01/2020 6:09 AM EDT Jay Day MD LAB BLOOD ORDERABLES Final Res ult Performing Organization Address [facility] Co de Phone Number [facility] [address] [facility]. [address] * (ABNORMAL) Hepatic Function Panel (06/01/2020 5:17 AM EDT) Total Bilirubin 0.4 0.0 - 1.5 mg/dL 06/01/2020 6:52 AM EDT [facility] Bilirubin, Direct 0.02 0.00 - 0.40 mg/dL 06/01/2020 6:52 AM EDT [facility] AST 13 13 - 39 U/L 06/01/2020 6:52 AM EDT [facility] ALT 11 7 - 52 U/L 06/01/2020 6:52 AM EDT [facility] Alkaline Phosphatase 73 36 - 125 U/L 06/01/2020 6:52 AM EDT [facility] Total Protein 6.4 6.4 - 8.9 g/dL 06/01/2020 6:52 AM EDT [facility] Albumin 3.4(L) 3.5 - 5.7 g/dL 06/01/2020 6:52 AM EDT [facility] Bilirubin, Indirect 0.38 0.00 - 1.10 mg/dL 06/01/2020 6:52 AM EDT [facility] Plasma specimen (specimen) 06/01/2020 5:17 AM EDT 06/01/2020 6:09 AM EDT Jay Day MD LAB BLOOD ORDERABLES Final Res ult Performing Organization Address [facility] Co de Phone Number [facility] [address] [facility]. [address] * (ABNORMAL) Differential (06/01/2020 5:17 AM EDT) Myelocytes Relative 1.9(H) 0.0 - 0.0 % 06/01/2020 6:55 AM EDT [facility] Metamyelocytes Relative 1.9(H) 0.0 - 0.0 % 06/01/2020 6:55 AM EDT [facility] Neutrophils Relative 80.6(H) 40.0 - 80.0 % 06/01/2020 6:55 AM EDT [facility] Lymphocytes Relative 9.7(L) 15.0 - 45.0 % 06/01/2020 6:55 AM EDT [facility] Monocytes Relative 2.0 0.0 - 12.0 % 06/01/2020 6:55 AM EDT [facility] Eosinophils Relative 3.9 0.0 - 8.0 % 06/01/2020 6:55 AM EDT [facility] Basophils Relative 0.0 0.0 - 1.0 % 06/01/2020 6:55 AM EDT [facility] Neutrophils Absolute 5,158 1,500 - 7,800 /uL 06/01/2020 6:55 AM EDT [facility] Metamyelocytes Absolute 122(H) 0 - 0 /uL 06/01/2020 6:55 AM EDT [facility] Myelocytes Absolute 122(H) 0 - 0 /uL 06/01/2020 6:55 AM EDT [facility] Lymphocytes Absolute 621(L) 850 - 3,900 /uL 06/01/2020 6:55 AM EDT [facility] Monocytes Absolute 128(L) 200 - 950 /uL 06/01/2020 6:55 AM EDT [facility] Eosinophils Absolute 250 15 - 500 /uL 06/01/2020 6:55 AM EDT [facility] Basophils Absolute 0 0 - 200 /uL 06/01/2020 6:55 AM EDT [facility] RBC Morphology Normal 06/01/2020 6:55 AM EDT [facility] PLT Morphology Platelet morphology appears normal 06/01/2020 6:55 AM EDT [facility] Whole blood specimen (specimen) 06/01/2020 5:17 AM EDT 06/01/2020 6:08 AM EDT us Jay Day MD LAB BLOOD ORDERABLES Final Res ult [facility] [address] [place], [place] [address] * (ABNORMAL) CBC (06/01/2020 5:17 AM EDT) WBC 6.4 3.8 - 10.8 10E3/uL 06/01/2020 6:16 AM EDT [facility] RBC 2.41(L) 4.20 - 5.80 10E6/uL 06/01/2020 6:16 AM EDT [facility] Hemoglobin 7.4(L) 13.2 - 17.1 g/dL 06/01/2020 6:16 AM EDT [facility] Hematocrit 22.0(L) 38.5 - 50.0 % 06/01/2020 6:16 AM EDT [facility] MCV 91.6 80.0 - 100.0 fL 06/01/2020 6:16 AM EDT [facility] MCH 30.5 27.0 - 33.0 pg 06/01/2020 6:16 AM EDT [facility] MCHC 33.3 32.0 - 36.0 g/dL 06/01/2020 6:16 AM EDT [facility] RDW 14.7 11.0 - 15.0 % 06/01/2020 6:16 AM EDT [facility] Platelets 337 140 - 400 10E3/uL 06/01/2020 6:16 AM EDT [facility] MPV 7.6 7.5 - 11.5 fL 06/01/2020 6:16 AM EDT [facility] Whole blood specimen (specimen) 06/01/2020 5:17 AM EDT 06/01/2020 6:08 AM EDT us Jay Day MD LAB BLOOD ORDERABLES Final Res ult [facility] [address] * (ABNORMAL) C-Reactive Protein (06/01/2020 5:17 AM EDT) CRP 197.1(H) 1.0 - 10.0 mg/L 06/01/2020 6:52 AM EDT [facility] Plasma specimen (specimen) 06/01/2020 5:17 AM EDT 06/01/2020 6:09 AM EDT us María Galvez MD LAB BLOOD ORDERABLES Final Res ult [facility] [address] [facility]. [address] * (ABNORMAL) Sed Rate (06/01/2020 5:17 AM EDT) Sed Rate 28(H) 0 - 15 mm/hr 06/01/2020 6:38 AM EDT [facility] Whole blood specimen (specimen) 06/01/2020 5:17 AM EDT 06/01/2020 6:08 AM EDT us María Galvez MD LAB BLOOD ORDERABLES Final Res ult Performing Organization Address [facility]/ZIP Co de Phone Number [facility] [address] [place] [address] * Vancomycin, trough (06/01/2020 5:17 AM EDT) Pathologist [facility] Vancomycin Tr 17.7 10.0 - 20.0 ug/mL 06/01/2020 6:43 AM EDT [facility] [facility] Plasma specimen (specimen) 06/01/2020 5:17 AM EDT 06/01/2020 6:10 AM EDT us Aby Cavazos MD LAB BLOOD ORDERABLES Final Resul t Performing Organization Address [facility] Co de Phone Number [facility] [address] [place] [address] * (ABNORMAL) POC Glucose Monitoring Device (05/31/2020 10:00 PM EDT) Pathologist [facility] POC Glucose Monitoring Device 188(H) 70 - 100 mg/dL 05/31/2020 10:01 PM EDT [facility] Blood specimen (specimen) 05/31/2020 10:00 PM EDT 05/31/2020 10:01 PM EDT us Aby Cavazos MD POINT OF CARE TEST ORDERABLES Fi nal Result Performing Organization Address City/[facility]/ZIP Co de Phone Number [facility] [address] [place] [address] * (ABNORMAL) POC Glucose Monitoring Device (05/31/2020 6:09 PM EDT) POC Glucose Monitoring Device 133(H) 70 - 100 mg/dL 05/31/2020 6:10 PM EDT [facility] Blood specimen (specimen) 05/31/2020 6:09 PM EDT 05/31/2020 6:09 PM EDT us Aby Cavazos MD POINT OF CARE TEST ORDERABLES Fi nal Result Performing Organization Address City/[facility]/ZIP Co de Phone Number [facility] [address] [facility]. [address] * (ABNORMAL) POC Glucose Monitoring Device (05/31/2020 1:04 PM EDT) POC Glucose Monitoring Device 150(H) 70 - 100 mg/dL 05/31/2020 1:05 PM EDT [facility] Blood specimen (specimen) 05/31/2020 1:04 PM EDT 05/31/2020 1:05 PM EDT us Aby Cavazos MD POINT OF CARE TEST ORDERABLES Fi nal Result Performing Organization Address [facility] Co de Phone Number [facility] [address] [facility]. [address] * (ABNORMAL) POC Glucose Monitoring Device (05/31/2020 8:10 AM EDT) POC Glucose Monitoring Device 133(H) 70 - 100 mg/dL 05/31/2020 8:11 AM EDT [facility] Blood specimen (specimen) 05/31/2020 8:10 AM EDT 05/31/2020 8:10 AM EDT us Aby Cavazos MD POINT OF CARE TEST ORDERABLES Fi nal Result Performing Organization Address City/[facility]/ZIP Co de Phone Number [facility] [address] [facility]. [address] * ECG 12 lead (MUSE) (05/31/2020 6:17 AM EDT) 05/31/2020 6:17 AM EDT Narrative MUSE - 06/01/2020 9:31 AM EDT Ventricular Rate: ??131 ??BPM Atrial Rate: ??131 ??BPM P-R Interval: ??198 ??ms QRS Duration: ??102 ??ms QT: ??256 ??ms QTc: ??378 ??ms P [place]: ??41 ??degrees R [place]: ??51 ??degrees T [place]: ??167 ??degrees Diagnosis Line: ??SINUS TACHYCARDIA ^ POSSIBLE LEFT ATRIAL ENLARGEMENT ^ ST SEGMENT CHANGE AND ANTEROLATERAL T WAVE INVERSION ^ POSSIBLE INFERIOR MS ^ COMPARED TO THE ECG OF 28-MAY-2020 13:29, ^ T WAVE INVERSION NOW EVIDENT IN ANTEROLATERAL LEADS ^ Confirmed by Marcelino JERRY MD ([facility]) on 06/01/2020 9:30:56 AM us Latrice Perez MD ECG ORDERABLES Final Result MUSE * Prepare RBC, leukoreduced (05/31/2020 6:15 AM EDT) Product Code D2271T64 [facility] Unit Number [id number] [facility] Dispense Status Presumed Transfused_PT [facility] Blood Expiration Date [id number] [facility] Coding System [id number] [facility] Product Code X2604Z57 [facility] Unit Number [id number] [facility] Dispense Status Presumed Transfused_PT [facility] Blood Expiration Date [id number] [facility]LL Coding System [id number] HCLL us Attending Provider Unknown BLOOD BANK PRODUCT OR DERABLES Final Result [facility] * (ABNORMAL) Protime-INR (05/31/2020 4:29 AM EDT) Protime 17.0(H) 12.1 - 15.1 seconds 05/31/2020 5:10 AM EDT [facility] INR 1.4(H) 0.9 - 1.1 05/31/2020 5:10 AM EDT [facility] Comment: RECOMMENDED THERAPEUTIC RANGES USING INR : ?Stable oral anticoagulant therapy: ? 2.0 - 3.0 ?Mechanical prosthetic heart valve: ? 2.5 - 3.5 ?Recurrent acute myocardial infarction: ? 2.5 - 3.5 Plasma specimen (specimen) 05/31/2020 4:29 AM EDT 05/31/2020 4:55 AM EDT us Jay Day MD LAB BLOOD ORDERABLES Final Res ult Performing Organization Address City/State/[facility] Co de Phone Number [facility] [address] [facility]. [address] * (ABNORMAL) Renal Function Panel w/EGFR (05/31/2020 4:29 AM EDT) Sodium 136 133 - 146 mmol/L 05/31/2020 5:25 AM EDT [facility] Potassium 4.7 3.5 - 5.3 mmol/L 05/31/2020 5:25 AM EDT [facility] Chloride 97(L) 98 - 110 mmol/L 05/31/2020 5:25 AM EDT [facility] CO2 26 21 - 33 mmol/L 05/31/2020 5:25 AM EDT [facility] Anion Gap 13 3 - 16 mmol/L 05/31/2020 5:25 AM EDT [facility] BUN 64(H) 7 - 25 mg/dL 05/31/2020 5:25 AM EDT [facility] Creatinine 10.62(H) 0.60 - 1.30 mg/dL 05/31/2020 5:25 AM EDT [facility] Glucose 127(H) 70 - 100 mg/dL 05/31/2020 5:25 AM EDT [facility] Calcium 9.2 8.6 - 10.3 mg/dL 05/31/2020 5:25 AM EDT [facility] Phosphorus 6.8(H) 2.1 - 4.7 mg/dL 05/31/2020 5:25 AM EDT [facility] Albumin 3.2(L) 3.5 - 5.7 g/dL 05/31/2020 5:25 AM EDT [facility] Osmolality, Calculated 302 278 - 305 mOsm/kg 05/31/2020 5:25 AM EDT [facility] eGFR AA CKD-EPI 6 See note. 0 5:25 AM EDT [facility] Comment: As of 2015 the estimated [...] equation to estimate glomerular filtration rate. ??[employer]. 2009:150(9):604-12 eGFR NONAA CKD-EPI 5 See note. 05/31/2020 5:25 AM EDT [facility] Comment: As of 2015 the estimated [...] equation to estimate glomerular filtration rate. ??[employer]. 2009:150(9):604-12 Plasma specimen (specimen) 05/31/2020 4:29 AM EDT 05/31/2020 4:54 AM EDT us Jay Day MD LAB BLOOD ORDERABLES Final Res ult [facility] [address] * Magnesium (05/31/2020 4:29 AM EDT) Magnesium 2.0 1.5 - 2.5 mg/dL 05/31/2020 5:25 AM EDT [facility] Plasma specimen (specimen) 05/31/2020 4:29 AM EDT 05/31/2020 4:54 AM EDT Jay Day MD LAB BLOOD ORDERABLES Final Res ult [facility] [address] [facility]. [address] * (ABNORMAL) Hepatic Function Panel (05/31/2020 4:29 AM EDT) Total Bilirubin 0.4 0.0 - 1.5 mg/dL 05/31/2020 5:25 AM EDT [facility] Bilirubin, Direct 0.10 0.00 - 0.40 mg/dL 05/31/2020 5:25 AM EDT [facility] AST 11(L) 13 - 39 U/L 05/31/2020 5:25 AM EDT [facility] ALT 14 7 - 52 U/L 05/31/2020 5:25 AM EDT [facility] Alkaline Phosphatase 74 36 - 125 U/L 05/31/2020 5:25 AM EDT [facility] Total Protein 6.1(L) 6.4 - 8.9 g/dL 05/31/2020 5:25 AM EDT [facility] Albumin 3.2(L) 3.5 - 5.7 g/dL 05/31/2020 5:25 AM EDT [facility] Bilirubin, Indirect 0.30 0.00 - 1.10 mg/dL 05/31/2020 5:25 AM EDT [facility] Plasma specimen (specimen) 05/31/2020 4:29 AM EDT 05/31/2020 4:54 AM EDT Jay Day MD LAB BLOOD ORDERABLES Final Res ult [facility] [address] [facility]. [address] * (ABNORMAL) Differential (05/31/2020 4:29 AM EDT) Neutrophils Relative 78.0 40.0 - 80.0 % 05/31/2020 5:06 AM EDT [facility] Lymphocytes Relative 12.4(L) 15.0 - 45.0 % 05/31/2020 5:06 AM EDT [facility] Monocytes Relative 7.2 0.0 - 12.0 % 05/31/2020 5:06 AM EDT [facility] Eosinophils Relative 2.2 0.0 - 8.0 % 05/31/2020 5:06 AM EDT [facility] Basophils Relative 0.2 0.0 - 1.0 % 05/31/2020 5:06 AM EDT [facility] nRBC 0 0 - 0 /100 WBC 05/31/2020 5:06 AM EDT [facility] Neutrophils Absolute 5,928 1,500 - 7,800 /uL 05/31/2020 5:06 AM EDT [facility] Lymphocytes Absolute 942 850 - 3,900 /uL 05/31/2020 5:06 AM EDT [facility] Monocytes Absolute 547 200 - 950 /uL 05/31/2020 5:06 AM EDT [facility] Eosinophils Absolute 167 15 - 500 /uL 05/31/2020 5:06 AM EDT [facility] Basophils Absolute 15 0 - 200 /uL 05/31/2020 5:06 AM EDT [facility] Whole blood specimen (specimen) 05/31/2020 4:29 AM EDT 05/31/2020 4:54 AM EDT us Jay Day MD LAB BLOOD ORDERABLES Final Res ult [facility] [address] * (ABNORMAL) CBC (05/31/2020 4:29 AM EDT) WBC 7.6 3.8 - 10.8 10E3/uL 05/31/2020 5:06 AM EDT [facility] RBC 2.55(L) 4.20 - 5.80 10E6/uL 05/31/2020 5:06 AM EDT [facility] Hemoglobin 7.8(L) 13.2 - 17.1 g/dL 05/31/2020 5:06 AM EDT [facility] Hematocrit 23.4(L) 38.5 - 50.0 % 05/31/2020 5:06 AM EDT [facility] MCV 91.6 80.0 - 100.0 fL 05/31/2020 5:06 AM EDT [facility] MCH 30.5 27.0 - 33.0 pg 05/31/2020 5:06 AM EDT [facility] MCHC 33.2 32.0 - 36.0 g/dL 05/31/2020 5:06 AM EDT [facility] RDW 15.4(H) 11.0 - 15.0 % 05/31/2020 5:06 AM EDT [facility] Platelets 329 140 - 400 10E3/uL 05/31/2020 5:06 AM EDT [facility] MPV 7.8 7.5 - 11.5 fL 05/31/2020 5:06 AM EDT [facility] Whole blood specimen (specimen) 05/31/2020 4:29 AM EDT 05/31/2020 4:54 AM EDT us Jay Day MD LAB BLOOD ORDERABLES Final Res ult [facility] [address] [place] [id number] * (ABNORMAL) Cyclosporine level (05/31/2020 4:29 AM EDT) Cyclosporine, Blood 46(L) 100 - 400 ng/mL 05/31/2020 12:49 PM EDT [facility] Comment: Detection limit: ??30 ng/mL. ??Performed via chemiluminescent microparticle immunoassay on the [employer] i1000. Whole blood specimen (specimen) 05/31/2020 4:29 AM EDT 05/31/2020 5:20 AM EDT us María Galvez MD LAB BLOOD ORDERABLES Final Res ult [facility] [address] * (ABNORMAL) CBC (05/30/2020 11:33 PM EDT) Pathologist [facility] WBC 9.5 3.8 - 10.8 10E3/uL 05/30/2020 11:50 PM EDT [facility] RBC 2.65(L) 4.20 - 5.80 10E6/uL 05/30/2020 11:50 PM EDT [facility] Hemoglobin 7.7(L) 13.2 - 17.1 g/dL 05/30/2020 11:50 PM EDT [facility] Hematocrit 24.1(L) 38.5 - 50.0 % 05/30/2020 11:50 PM EDT [facility] MCV 90.8 80.0 - 100.0 fL 05/30/2020 11:50 PM EDT [facility] MCH 29.1 27.0 - 33.0 pg 05/30/2020 11:50 PM EDT [facility] MCHC 32.1 32.0 - 36.0 g/dL 05/30/2020 11:50 PM EDT [facility] RDW 15.2(H) 11.0 - 15.0 % 05/30/2020 11:50 PM EDT [facility] Platelets 369 140 - 400 10E3/uL 05/30/2020 11:50 PM EDT [facility] MPV 7.4(L) 7.5 - 11.5 fL 05/30/2020 11:50 PM EDT [facility] Whole blood specimen (specimen) 05/30/2020 11:33 PM EDT 05/30/2020 11:41 PM EDT us Jay Day MD LAB BLOOD ORDERABLES Final Res ult [facility] [address] * (ABNORMAL) POC Glucose Monitoring Device (05/30/2020 10:36 PM EDT) POC Glucose Monitoring Device 114(H) 70 - 100 mg/dL 05/30/2020 10:38 PM EDT [facility] Blood specimen (specimen) 05/30/2020 10:36 PM EDT 05/30/2020 10:37 PM EDT Aby Cavazos MD POINT OF CARE TEST ORDERABLES Fi nal Result Performing Organization Address City/State/[facility] Co de Phone Number [facility] [address], [place] [address] * MRI Lumbar spine WO contrast (05/30/2020 [...] Glucose Monitoring Device (05/30/2020 4:19 PM EDT) POC Glucose Monitoring Device 100 70 - 100 mg/dL 05/30/2020 4:20 PM EDT [facility] Blood specimen (specimen) 05/30/2020 4:19 PM EDT 05/30/2020 4:20 PM EDT us Aby Cavazos MD POINT OF CARE TEST ORDERABLES Fi nal Result [facility] [address] * Transfuse RBC (05/30/2020 12:30 PM EDT) Alex Fong MD NURSING TREATMENT ORDERABLES - B LOOD ADMIN Final Result Performing Organization Address [facility]/[place] de Phone Number EXTERNAL * Transfuse RBC Has consent been obtained? Yes; Transfusion Rate: Per dept routine, 1 Units (05/30/2020 12:30 PM EDT) Alex Fong MD NURSING TREATMENT ORDERABLES - B LOOD ADMIN Final Result Performing Organization Address [facility] de Phone Number EXTERNAL * Cyclosporine level (05/30/2020 12:06 PM EDT) Pathologist [facility] Cyclosporine, Blood 110 100 - 400 ng/mL 05/31/2020 12:48 PM EDT [facility] Comment: Detection limit: ??30 ng/mL. ??Performed via chemiluminescent microparticle immunoassay on the [employer] i1000. Whole blood specimen (specimen) 05/30/2020 12:06 PM EDT 05/30/2020 12:43 PM EDT Result [facility] María Galvez MD LAB BLOOD ORDERABLES Final Res ult Performing Organization Address [facility] de Phone Number [facility] [address] [facility] * Lactic Acid (05/30/2020 12:06 PM EDT) Pathologist [facility] Lactate 0.7 0.5 - 2.2 mmol/L 05/30/2020 1:07 PM EDT [facility] Plasma specimen (specimen) 05/30/2020 12:06 PM EDT 05/30/2020 12:32 PM EDT Alex Fong MD LAB BLOOD ORDERABLES Final Resul t Performing Organization Address [facility] de Phone Number [facility] [address] * Vancomycin, random (05/30/2020 12:06 PM EDT) Vancomycin Random 22.9 ug/mL 05/30/2020 1:07 PM EDT [facility] Comment:Reference range not established for this test. Plasma specimen (specimen) 05/30/2020 12:06 PM EDT 05/30/2020 12:43 PM EDT Abbie Cifuentes MD LAB BLOOD ORDERABLES F inal Result Performing Organization Address [facility] Co de Phone Number [facility] [address] [facility]. [address] * (ABNORMAL) C-Reactive Protein (05/30/2020 12:06 PM EDT) CRP 159.9(H) 1.0 - 10.0 mg/L 05/30/2020 1:10 PM [address] [facility] Plasma specimen (specimen) 05/30/2020 12:06 PM EDT 05/30/2020 12:43 PM EDT María Galvez MD LAB BLOOD ORDERABLES Final Res ult Performing Organization Address [facility]/[place] de Phone Number [facility] [address] [facility] * (ABNORMAL) Sed Rate (05/30/2020 12:06 PM EDT) Sed Rate 25(H) 0 - 15 mm/hr 05/30/2020 1:12 PM EDT [facility] Whole blood specimen (specimen) 05/30/2020 12:06 PM EDT 05/30/2020 12:43 PM EDT María Galvez MD LAB BLOOD ORDERABLES Final Res ult Performing Organization Address [facility] Co de Phone Number [facility] [address] [facility] * (ABNORMAL) Protime-INR, AM (05/30/2020 12:06 PM EDT) Protime 16.8(H) 12.1 - 15.1 seconds 05/30/2020 12:56 PM EDT [facility] INR 1.3(H) 0.9 - 1.1 05/30/2020 12:56 PM EDT [facility] Comment: RECOMMENDED THERAPEUTIC RANGES USING INR : ?Stable oral anticoagulant therapy: ? 2.0 - 3.0 ?Mechanical prosthetic heart valve: ? 2.5 - 3.5 ?Recurrent acute myocardial infarction: ? 2.5 - 3.5 Plasma specimen (specimen) 05/30/2020 12:06 PM EDT 05/30/2020 12:43 PM EDT us María Galvez MD LAB BLOOD ORDERABLES Final Res ult [facility] [address] * (ABNORMAL) Hepatic Function Panel, AM (05/30/2020 12:06 PM EDT) Total Bilirubin 0.4 0.0 - 1.5 mg/dL 05/30/2020 1:10 PM EDT [facility] Bilirubin, Direct 0.04 0.00 - 0.40 mg/dL 05/30/2020 1:10 PM EDT [facility] AST 12(L) 13 - 39 U/L 05/30/2020 1:10 PM EDT [facility] ALT 14 7 - 52 U/L 05/30/2020 1:10 PM EDT [facility] Alkaline Phosphatase 82 36 - 125 U/L 05/30/2020 1:10 PM EDT [facility] Total Protein 6.1(L) 6.4 - 8.9 g/dL 05/30/2020 1:10 PM EDT [facility] Albumin 3.3(L) 3.5 - 5.7 g/dL 05/30/2020 1:10 PM EDT [facility] Bilirubin, Indirect 0.36 0.00 - 1.10 mg/dL 05/30/2020 1:10 PM EDT [facility] Plasma specimen (specimen) 05/30/2020 12:06 PM EDT 05/30/2020 12:43 PM EDT us María Galvez MD LAB BLOOD ORDERABLES Final Res ult Performing Organization Address City/[facility] Co de Phone Number [facility] [address] * Magnesium, AM (05/30/2020 12:06 PM EDT) Magnesium 1.8 1.5 - 2.5 mg/dL 05/30/2020 1:10 PM EDT [facility] Plasma specimen (specimen) 05/30/2020 12:06 PM EDT 05/30/2020 12:43 PM EDT María Galvez MD LAB BLOOD ORDERABLES Final Res ult Performing Organization Address [facility] Co de Phone Number [facility] [address] [facility]. [address] * (ABNORMAL) Renal Function Panel w/EGFR (05/30/2020 12:06 PM EDT) Sodium 137 133 - 146 mmol/L 05/30/2020 1:10 PM EDT [facility] Potassium 4.8 3.5 - 5.3 mmol/L 05/30/2020 1:10 PM EDT [facility] Chloride 96(L) 98 - 110 mmol/L 05/30/2020 1:10 PM EDT [facility] CO2 25 21 - 33 mmol/L 05/30/2020 1:10 PM EDT [facility] Anion Gap 16 3 - 16 mmol/L 05/30/2020 1:10 PM EDT [facility] BUN 56(H) 7 - 25 mg/dL 05/30/2020 1:10 PM EDT [facility] Creatinine 10.01(H) 0.60 - 1.30 mg/dL 05/30/2020 1:10 PM EDT [facility] Glucose 112(H) 70 - 100 mg/dL 05/30/2020 1:10 PM EDT [facility] Calcium 8.8 8.6 - 10.3 mg/dL 05/30/2020 1:10 PM EDT [facility] Phosphorus 6.4(H) 2.1 - 4.7 mg/dL 05/30/2020 1:10 PM EDT [facility] Albumin 3.3(L) 3.5 - 5.7 g/dL 05/30/2020 1:10 PM EDT [facility] Osmolality, Calculated 300 278 - 305 mOsm/kg 05/30/2020 1:10 PM EDT [facility] eGFR AA CKD-EPI 6 See note. 0 1:10 PM EDT [facility] Comment: As of 2015 the estimated [...] equation to estimate glomerular filtration rate. ??[employer] 2009:150(9):604-12 eGFR NONAA CKD-EPI 6 See note. 05/30/2020 1:10 PM EDT [facility] Comment: As of 2015 the estimated [...] equation to estimate glomerular filtration rate. ??[employer]. 2009:150(9):604-12 Plasma specimen (specimen) 05/30/2020 12:06 PM EDT 05/30/2020 12:43 PM EDT María Galvez MD LAB BLOOD ORDERABLES Final Res ult [facility] [address] * (ABNORMAL) CBC, AM (05/30/2020 12:06 PM EDT) WBC 8.9 3.8 - 10.8 10E3/uL 05/30/2020 12:55 PM EDT [facility] RBC 2.29(L) 4.20 - 5.80 10E6/uL 05/30/2020 12:55 PM EDT [facility] Hemoglobin 6.7(L) 13.2 - 17.1 g/dL 05/30/2020 12:55 PM EDT [facility] Hematocrit 21.0(L) 38.5 - 50.0 % 05/30/2020 12:55 PM EDT [facility] MCV 91.9 80.0 - 100.0 fL 05/30/2020 12:55 PM EDT [facility] MCH 29.4 27.0 - 33.0 pg 05/30/2020 12:55 PM EDT [facility] MCHC 32.0 32.0 - 36.0 g/dL 05/30/2020 12:55 PM EDT [facility] RDW 14.7 11.0 - 15.0 % 05/30/2020 12:55 PM EDT [facility] Platelets 358 140 - 400 10E3/uL 05/30/2020 12:55 PM EDT [facility] MPV 7.9 7.5 - 11.5 fL 05/30/2020 12:55 PM EDT [facility] Whole blood specimen (specimen) 05/30/2020 12:06 PM EDT 05/30/2020 12:43 PM EDT María aGlvez MD LAB BLOOD ORDERABLES Final Res ult [facility] [address] * (ABNORMAL) POC Glucose Monitoring Device (05/30/2020 10:33 AM EDT) POC Glucose Monitoring Device 134(H) 70 - 100 mg/dL 05/30/2020 10:35 AM EDT [facility] Blood specimen (specimen) 05/30/2020 10:33 AM EDT 05/30/2020 10:34 AM EDT Aby Cavazos MD POINT OF CARE TEST ORDERABLES Fi nal Result Performing Organization Address City/State/[facility] Co de Phone Number [facility] [address] * (ABNORMAL) Blood Gas, Arterial (05/30/2020 10:21 AM EDT) FIO2 28 05/30/2020 10:27 AM EDT [facility] pH, Arterial 7.39 7.35 - 7.45 05/30/2020 10:27 AM EDT [facility] pCO2, Arterial 48(H) 35 - 45 mm Hg 05/30/2020 10:27 AM EDT [facility] pO2, Arterial 65(L) 80 - 100 mm Hg 05/30/2020 10:27 AM EDT [facility] HCO3, Arterial 29(H) 22 - 26 mmol/L 05/30/2020 10:27 AM EDT [facility] CO2 Content,Arteri al 30(H) 23 - 27 mmol/L 05/30/2020 10:27 AM EDT [facility] Base Excess, Arterial 3.5(H) -2.0 - 3.0 mmol/L 05/30/2020 10:27 AM EDT [facility] %HBO2, Arterial 90.1(L) 95.0 - 98.0 % 05/30/2020 10:27 AM EDT [facility] Carboxyhemoglo bin, Arterial 1.5 % 05/30/2020 10:27 AM EDT [facility] Comment: CARBOXYHEMOGLOBIN (CO) REFERENCE RANGES: Non-Smokers: ??<2 % ? Smokers: ??<8 % TOXIC: >20 % Methemoglobin, Arterial 1.2 0.0 - 1.5 % 05/30/2020 10:27 AM EDT [facility] Reduced hemoglobin, Arterial 7.2(H) 0.0 - 5.0 % 05/30/2020 10:27 AM EDT [facility] Arterial blood specimen (specimen) 05/30/2020 10:21 AM EDT 05/30/2020 10:26 AM EDT Jay Day MD LAB BLOOD ORDERABLES Final Res ult Performing Organization Address City/[facility]/ZIP Co de Phone Number [facility] [address] * (ABNORMAL) CMV IgM Antibody (05/30/2020 12:29 AM EDT) CMV IgM Positive( A) Negative 05/31/2020 9:52 AM EDT [facility] Comment:Result indicates the presence of detectable CMV IgM antibodies. A Positive result is generally indicative of acute infection, reactivation or persistent IgM production. CMV IGM NUM 100.00(H) 0.00 - 29.99 AU/mL 05/31/2020 9:52 AM EDT [facility] Serum specimen (specimen) 05/30/2020 12:29 AM EDT 05/30/2020 12:44 AM EDT Jay Day MD LAB BLOOD ORDERABLES Final Res ult Performing Organization Address [facility] Co de Phone Number [facility] [address] [facility] * (ABNORMAL) CMV IgG Antibody (05/30/2020 12:29 AM EDT) CMV IgG Positive(A ) Negative 05/31/2020 9:34 AM EDT [facility] CMV IGG NUM 10.00(H) 0.00 - 0.59 U/mL 05/31/2020 9:34 AM EDT [facility] Serum specimen (specimen) 05/30/2020 12:29 AM EDT 05/30/2020 12:44 AM EDT Jay Day MD LAB BLOOD ORDERABLES Final Res ult [facility] [address] * Cytomegalovirus DNA, Quant, Rt PCR (05/30/2020 12:29 AM EDT) [facility] CMV DNA Qnt 685 IU/mL 06/01/2020 11:41 AM EDT [facility] Comment:Test methodology for CMV quantification is an FDA-approved nucleic acid amplification assay. The Lower Limit of Quantitation (LLOQ) is 137 IU/mL; the linear range is 137- 9,100,000 IU/mL. The limit of Detection is (LoD) is 91 IU/mL. Log10 CMV Qn DNA PI 2.84 log 10 IU/mL 06/01/2020 11:41 AM EDT [facility] Comment:CMV DNA has been det ected. Plasma specimen (specimen) 05/30/2020 12:29 AM EDT 05/30/2020 1:37 AM EDT Jay Day MD LAB BLOOD ORDERABLES Final Res ult Performing Organization Address [facility] Co de Phone Number [facility] [facility] [address] [place] [address]. [address] * (ABNORMAL) Cyclosporine level (05/30/2020 12:29 AM EDT) [facility] Cyclosporine, Blood <30(L) 100 - 400 ng/mL 05/30/2020 12:24 PM EDT [facility] Comment: Detection limit: ??30 ng/mL. ??Performed via chemiluminescent microparticle immunoassay on the [employer] i1000. Whole blood specimen (specimen) 05/30/2020 12:29 AM EDT 05/30/2020 12:44 AM EDT María Galvez MD LAB BLOOD ORDERABLES Final Res ult Performing Organization Address [facility] Co de Phone Number [facility] [address] [place] [address] * (ABNORMAL) Hepatic Function Panel (05/30/2020 12:29 AM EDT) Total Bilirubin 0.4 0.0 - 1.5 mg/dL 05/30/2020 1:13 AM EDT [facility] Bilirubin, Direct 0.08 0.00 - 0.40 mg/dL 05/30/2020 1:13 AM EDT [facility] AST 15 13 - 39 U/L 05/30/2020 1:13 AM EDT [facility] ALT 19 7 - 52 U/L 05/30/2020 1:13 AM EDT [facility] Alkaline Phosphatase 88 36 - 125 U/L 05/30/2020 1:13 AM EDT [facility] Total Protein 6.3(L) 6.4 - 8.9 g/dL 05/30/2020 1:13 AM EDT [facility] Albumin 3.3(L) 3.5 - 5.7 g/dL 05/30/2020 1:13 AM EDT [facility] Bilirubin, Indirect 0.32 0.00 - 1.10 mg/dL 05/30/2020 1:13 AM EDT [facility] Plasma specimen (specimen) 05/30/2020 12:29 AM EDT 05/30/2020 12:44 AM EDT María Galvez MD LAB BLOOD ORDERABLES Final Res ult Performing Organization Address [facility] Co de Phone Number [facility] [address] [place] [address] * Magnesium (05/30/2020 12:29 AM EDT) Magnesium 1.8 1.5 - 2.5 mg/dL 05/30/2020 1:13 AM EDT [facility] Plasma specimen (specimen) 05/30/2020 12:29 AM EDT 05/30/2020 12:44 AM EDT María Galvez MD LAB BLOOD ORDERABLES Final Res ult Performing Organization Address [facility] Co de Phone Number [facility] [address] * (ABNORMAL) Renal Function Panel w/EGFR (05/30/2020 12:29 AM EDT) Sodium 137 133 - 146 mmol/L 05/30/2020 1:13 AM T [facility] Potassium 4.5 3.5 - 5.3 mmol/L 05/30/2020 1:[address] [facility] Chloride 94(L) 98 - 110 mmol/L 05/30/2020 1:13 AM EDT [facility] CO2 24 21 - 33 mmol/L 05/30/2020 1:[address] [facility] Anion Gap 19(H) 3 - 16 mmol/L 05/30/2020 1:13 AM EDT [facility] BUN 51(H) 7 - 25 mg/dL 05/30/2020 1:[address] [facility] Creatinine 8.15(H) 0.60 - 1.30 mg/dL 05/30/2020 1:[address] [facility] Glucose 147(H) 70 - 100 mg/dL 05/30/2020 1:[address] [facility] Calcium 8.8 8.6 - 10.3 mg/dL 05/30/2020 1:[address] [facility] Phosphorus 4.8(H) 2.1 - 4.7 mg/dL 05/30/2020 1:[address] [facility] Albumin 3.3(L) 3.5 - 5.7 g/dL 05/30/2020 1:[address] [facility] Osmolality, Calculated 300 278 - 305 mOsm/kg 05/30/2020 1:[address] [facility] eGFR AA CKD-EPI 8 See note. 0 1:[address] [facility] Comment: As of 2015 the [...] equation to estimate glomerular filtration rate. ??[employer]. 2009:150(9):604-12 eGFR NONAA CKD-EPI 7 See note. 2019 1:13 AM EDT [facility] Comment: As of 2015 the [...] equation to estimate glomerular filtration rate. ??[employer] 2009:150(9):604-12 Plasma specimen (specimen) 05/30/2020 12:29 AM EDT 05/30/2020 12:44 AM EDT us María Galvez MD LAB BLOOD ORDERABLES Final Res ult Performing Organization Address City/State/[facility] Co de Phone Number [facility] [address] * (ABNORMAL) CBC (05/30/2020 12:29 AM EDT) WBC 11.4(H) 3.8 - 10.8 10E3/uL 05/30/2020 12:51 AM EDT [facility] RBC 2.14(L) 4.20 - 5.80 10E6/uL 05/30/2020 12:51 AM EDT [facility] Hemoglobin 6.2(L) 13.2 - 17.1 g/dL 05/30/2020 12:51 AM EDT [facility] Hematocrit 19.9(L) 38.5 - 50.0 % 05/30/2020 12:51 AM EDT [facility] MCV 92.8 80.0 - 100.0 fL 05/30/2020 12:51 AM EDT [facility] MCH 28.9 27.0 - 33.0 pg 05/30/2020 12:51 AM EDT [facility] MCHC 31.1(L) 32.0 - 36.0 g/dL 05/30/2020 12:51 AM EDT [facility] RDW 15.4(H) 11.0 - 15.0 % 05/30/2020 12:51 AM EDT [facility] Platelets 349 140 - 400 10E3/uL 05/30/2020 12:51 AM EDT [facility] MPV 7.9 7.5 - 11.5 fL 05/30/2020 12:51 AM EDT [facility] Whole blood specimen (specimen) 05/30/2020 12:29 AM EDT 05/30/2020 12:44 AM EDT María Galvez MD LAB BLOOD ORDERABLES Final Res ult Performing Organization Address [facility] Co de Phone Number [facility] [address] [facility]. [address] * (ABNORMAL) POC Glucose Monitoring Device (05/29/2020 11:14 PM EDT) POC Glucose Monitoring Device 164(H) 70 - 100 mg/dL 05/29/2020 11:14 PM EDT [facility] Blood specimen (specimen) 05/29/2020 11:14 PM EDT 05/29/2020 11:14 PM EDT us Aby Cavazos MD POINT OF CARE TEST ORDERABLES Fi nal Result Performing Organization Address [facility] de Phone Number [facility] [address] [facility]. [address] * Hepatitis B Virus (HBV), PCR, Quant (05/29/2020 6:49 PM EDT) Hep B Viral DNA IU/ML <20 IU/mL 06/02/2020 11:42 AM EDT [facility] Comment:Test methodology for HBV DNA quantification is an FDA-approved nucleic acid amplification assay. The Lower Limit of Quantitation (LLOQ) is 20 IU/mL. The linear range of the assay is 20- 170,000,000 IU/mL. log 10 HBV as IU/mL See Note log 10 IU/mL 06/02/2020 11:42 AM EDT [facility] Comment: HBV DNA has been detected, but not quantifiable. ??HBV DNA is below the LLoQ of the assay. ??Log IU/mL cannot be calculated Serum specimen (specimen) 05/29/2020 6:49 PM EDT 05/29/2020 9:30 PM EDT us Melvina Castellon MD LAB BLOOD ORDERABLES Final Re sult [facility] [address] [place] [id number], [facility] * X-ray Chest PA or AP (05/29/2020 [...] Glucose Monitoring Device (05/29/2020 2:17 PM EDT) [facility] POC Glucose Monitoring Device 165(H) 70 - 100 mg/dL 05/29/2020 2:18 PM EDT [facility] Blood specimen (specimen) 05/29/2020 2:17 PM EDT 05/29/2020 2:18 PM EDT us Abbie Cifuentes MD POINT OF CARE TEST ORD ERABLES Final Result [facility] [address] * DILATATION (05/29/2020 2:09 PM EDT) 05/29/2020 2:09 PM EDT Narrative [facility] - 05/31/2020 12:57 PM EDT [id number] Procedure Date: 05/29/2020 2:09 PM ?Patient Name: Leoncio Rollins ? Date of : 1975 ?Admit Type: Inpatient Age: 45 ? Gender: Male Note Status: Finalized ?Attending MD: Rashid WINCHESTER , Procedure: ? Upper GI endoscopy Indications: ? Coffee-ground emesis Patient Profile: ? 45 y.o.male with SAL cirrhosis s/p OLT 09/2017 at , ? 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 [...] esophagus was otherwise normal. ? Hematin (altered blood/ohngvd-pobruk-nsju material) was found in the ? gastric [...] ? esophagus. Biopsied. ? - Hematin (altered blood/avrvwq-ulbmyy-oulv material) in ? the gastric body. No [...] Procedure Code(s): ?? --- Professional --- ? 72921, GC, Esophagogastroduodenoscopy, flexible, ? transoral; with biopsy, single or multiple Diagnosis Code(s): ?? --- Professional --- ? K22.8, Other specified diseases of esophagus ? K92.2, Gastrointestinal hemorrhage, unspecified ? K92.0, Hematemesis CPT copyright 2019 [employer]. All rights reserved. The codes documented in this report are preliminary and upon outside machinist review may be revised to meet current compliance requirements. Attending Participation: ? I was present for the entire viewing portion, including introduction and ? removal of the scope. ? Rashid WINCHESTER, 05/31/2020 12:57:08 PM Bayron Porter MD Bayron Barba, 05/29/2020 4:01:12 PM Total Procedure Duration Time 0 hours 22 minutes 17 seconds Scope In: 2:47:11 PM Scope Out: 3:09:28 PM ? [address] [address] us Attending Provider Unknown PROCEDURE/MINOR SURGI NI ORDERABLES Final Result Performing Organization Address City/[facility]/ZIP Co de Phone Number [facility] [address] [place] [address] * (ABNORMAL) POC Glucose Monitoring Device (05/29/2020 11:44 AM EDT) [facility] POC Glucose Monitoring Device 159(H) 70 - 100 mg/dL 05/29/2020 11:45 AM EDT [facility] Blood specimen (specimen) 05/29/2020 11:44 AM EDT 05/29/2020 11:45 AM EDT us Abbie Cifuentes MD POINT OF CARE TEST ORD ERABLES Final Result Performing Organization Address [facility]/ZIP Co de Phone Number [facility] [address] [place] [facility]. [address] * (ABNORMAL) Protime-INR (05/29/2020 9:36 AM EDT) Protime 16.1(H) 12.1 - 15.1 seconds 05/29/2020 9:56 AM EDT [facility] INR 1.3(H) 0.9 - 1.1 05/29/2020 9:56 AM EDT [facility] Comment: RECOMMENDED THERAPEUTIC RANGES USING INR : ?Stable oral anticoagulant therapy: ? 2.0 - 3.0 ?Mechanical prosthetic heart valve: ? 2.5 - 3.5 ?Recurrent acute myocardial infarction: ? 2.5 - 3.5 Plasma specimen (specimen) 05/29/2020 9:36 AM EDT 05/29/2020 9:43 AM EDT us María Galvez MD LAB BLOOD ORDERABLES Final Res ult [facility] [address] [id number], [facility] * (ABNORMAL) Venous Blood Gas, Line/Syringe (05/29/2020 8:56 AM EDT) Pathologist [facility] PH-Line Draw 7.30(L) 7.32 - 7.42 05/29/2020 8:59 AM EDT [facility] PCO2-Line Draw 44 41 - 51 mm Hg 05/29/2020 8:59 AM EDT [facility] PO2-Line Draw 45(H) 25 - 40 mm Hg 05/29/2020 8:59 AM EDT [facility] HCO3-Line Draw 22(L) 24 - 28 mmol/L 05/29/2020 8:59 AM EDT [facility] CO2 Content-Line Draw 23(L) 25 - 29 mmol/L 05/29/2020 8:59 AM EDT [facility] Base Excess-Line Draw -4.3(L) -2.0 - 3.0 mmol/L 05/29/2020 8:59 AM EDT [facility] %HBO2-Line Draw 70.1(H) 40.0 - 70.0 % 05/29/2020 8:59 AM EDT [facility] Carboxyhgb-Nemo e Draw 1.6 0.0 - 2.0 % 05/29/2020 8:59 AM EDT [facility] Comment: CARBOXYHEMOGLOBIN (CO) REFERENCE RANGES: Non-Smokers: ??<2 % ? Smokers: ??<8 % TOXIC: >20 % Methemoglobin- Line Draw 1.3 0.0 - 1.5 % 05/29/2020 8:59 AM EDT [facility] Reduced Hemoglobin-Nemo e Draw 27.0(H) 0.0 - 5.0 % 05/29/2020 8:59 AM EDT [facility] Venous (qualifier value) 05/29/2020 8:56 AM EDT 05/29/2020 8:58 AM EDT us María Galvez MD LAB BLOOD ORDERABLES Final Res ult Performing Organization Address City/State/[facility] Co de Phone Number [facility] [address] * (ABNORMAL) CBC (05/29/2020 12:07 AM EDT) WBC 8.3 3.8 - 10.8 10E3/uL 05/29/2020 12:38 AM EDT [facility] RBC 2.51(L) 4.20 - 5.80 10E6/uL 05/29/2020 12:38 AM EDT [facility] Hemoglobin 7.3(L) 13.2 - 17.1 g/dL 05/29/2020 12:38 AM EDT [facility] Hematocrit 23.4(L) 38.5 - 50.0 % 05/29/2020 12:38 AM EDT [facility] MCV 93.2 80.0 - 100.0 fL 05/29/2020 12:38 AM EDT [facility] MCH 29.0 27.0 - 33.0 pg 05/29/2020 12:38 AM EDT [facility] MCHC 31.1(L) 32.0 - 36.0 g/dL 05/29/2020 12:38 AM EDT [facility] RDW 15.2(H) 11.0 - 15.0 % 05/29/2020 12:38 AM EDT [facility] Platelets 399 140 - 400 10E3/uL 05/29/2020 12:38 AM EDT [facility] MPV 8.2 7.5 - 11.5 fL 05/29/2020 12:38 AM EDT [facility] Whole blood specimen (specimen) 05/29/2020 12:07 AM EDT 05/29/2020 12:31 AM EDT us Ghassan Coffey MD LAB BLOOD ORDERABLES Final R esult [facility] [address] * Surgical Pathology Exam (05/29/2020 12:00 AM EDT) Tissue specimen (specimen) TISSUE SPECIMEN / Unknown 05/29/2020 3:05 PM EDT Comment:Dat forcep Narrative [facility] - 05/29/2020 12:00 AM EDT CASE: [id number] PATIENT: LEONCIO ROLLINS Clinical History: ?? EGD with biopsy Pre-Operative Diagnosis: coffee ground emesis Post-Operative Diagnosis: ? hiatal hernia, GE junction nodule Specimen(s) Submitted: ?? A. GE junction nodule biopsies CPT Code(s): ?? 28546 X 1; 63976 X 1; 98587 X 1 Additional Information: FINAL DIAGNOSIS: Gastroesophageal [...] biopsy bag and submitted entirely in cassette [id number]. ??(NAVNEET Claire (ASCP)/bhakti) Microscopic Description: 2 HE slides are examined. I, the attending pathologist, have personally reviewed all prosector/resident work and pathology slides to determine final diagnosis. Analyte-specific reagents (ASRs) were used in testing. These tests were developed and their performance characteristics determined by [facility] - Pathology. They have not been cleared [...] Pathologist signing this report is located at [facility], [address] [place] [address], [facility] [phone], CLIA ID: [id number] ADDENDUM: 06/05/20 - GMS stain demonstrates fungal yeasts, morphologically suggesting Luz species. - Immunostain for CMV is negative. Note: The staining results are notified to Tenzin Madrid and Katharine through [email or web address] 06/05/20. Addendum #1 performed by NICHELLE ERICKSON MD, PhD Pathologist Electronically signed 06/05/2020 09:39:32 AM ?? The Pathologist signing this report is located at [facility], [address] [place] [address], [id number], , CLIA ID: [id number] Rashid Winchester MD PATHOLOGY/CYTOLOGY ORDERABLES Ed ited Result - Final [facility] * (ABNORMAL) POC Glucose Monitoring Device (05/28/2020 6:01 PM EDT) POC Glucose Monitoring Device 156(H) 70 - 100 mg/dL 05/28/2020 6:01 PM EDT [facility] Blood specimen (specimen) 05/28/2020 6:01 PM EDT 05/28/2020 6:01 PM EDT Abbie Cifuentes MD POINT OF CARE TEST ORD ERABLES Final Result Performing Organization Address [facility] Co de Phone Number [facility] [address] [facility]. [address] * Antibody identification (05/28/2020 5:02 PM EDT) Antibody Id. #1 Anti-C 05/28/2020 5:02 PM EDT [facility] Antibody Id. #2 Anti-D 05/28/2020 5:02 PM EDT [facility] Blood specimen (specimen) 05/28/2020 5:02 PM EDT 05/28/2020 5:02 PM EDT María Galvez MD BLOOD BANK TEST ORDERABLES Fin al Result Performing Organization Address [facility] Co de Phone Number [facility] [address] [facility]. [address] * ELIUD Anti-IgG (05/28/2020 5:01 PM EDT) ELIUD IgG Negative 05/28/2020 5:01 PM EDT [facility] Blood specimen (specimen) 05/28/2020 5:01 PM EDT 05/28/2020 5:01 PM EDT María Galvez MD BLOOD BANK TEST ORDERABLES Fin al Result Performing Organization Address [facility] Co de Phone Number [facility] [address] [facility]. [address] * (ABNORMAL) Hepatitis B Surface Antibody, Quantitati (05/28/2020 3:41 PM EDT) HBSAB NUMBER 34.89(H) 0.00 - 7.99 mIU/mL 05/28/2020 10:[address] [facility] Hep B S Ab Reactive( A) Nonreactive 05/28/2020 10:16 [address] [facility] Serum specimen (specimen) 05/28/2020 3:41 PM EDT 05/28/2020 6:23 PM EDT [facility] - 05/29/2020 11:26 AM EDT Individual is considered immune to HBV infection. The results of the multi-test panel are inconsistent. Repeat testing is recommended. Aris Moctezuma MD LAB BLOOD ORDERABLES Final Resul t Performing Organization Address [facility]/[place] de Phone Number [address] * Hepatitis B Core Antibody (05/28/2020 3:41 PM EDT) Hep B Core Total Ab Nonreactive Nonreactive 05/28/2020 8:58 PM EDT [facility] Comment:Health Department no tified in accordance with reportable infectious disease guidelines. Serum specimen (specimen) 05/28/2020 3:41 PM EDT 05/28/2020 6:23 PM EDT [facility] - 05/29/2020 11:26 AM EDT A nonreactive final interpretation indicates that anti-HBc antibodies were not detected in the sample; it is possible that the individual is not infected with HBV. The results of the multi-test panel are inconsistent. Repeat testing is recommended. Aris Moctezuma MD LAB BLOOD ORDERABLES Final Resul t Performing Organization Address [facility] Co de Phone Number [facility] [address] [place] [address]. [address] * Hepatitis A IgM (05/28/2020 3:41 PM EDT) Hep A IgM Nonreactive Nonreactive 05/28/2020 9:19 PM EDT [facility] Serum specimen (specimen) 05/28/2020 3:41 PM EDT 05/28/2020 6:23 PM EDT [facility] - 05/28/2020 9:19 PM EDT IgM anti-HAV not detected. Does not exclude the possibility of exposure to or infection with HAV. ??Levels of IgM anti-HAV may be below the cut-off in early infection. Aris Moctezuma MD LAB BLOOD ORDERABLES Final Resul t Performing Organization Address [facility] Co de Phone Number [facility] [address] [place] [address]. [address] * Hepatitis C Antibody (05/28/2020 3:41 PM EDT) Pathologist [facility] HCV Ab Nonreactive Nonreactive 05/28/2020 9:03 PM EDT [facility] Comment:Health Department no tified in accordance with reportable infectious disease guidelines. Serum specimen (specimen) 05/28/2020 3:41 PM EDT 05/28/2020 6:23 PM EDT [facility] - 05/28/2020 9:03 PM EDT Antibodies to HCV not detected; does not exclude the possibility of exposure to HCV. Aris Moctezuma MD LAB BLOOD ORDERABLES Final Resul t Performing Organization Address [facility] de Phone Number [facility] [address] [place] [address]. [address] * (ABNORMAL) Hepatitis B surface antigen (05/28/2020 3:41 PM EDT) Pathologist [facility] Hepatitis B Surface Ag Confirm Confirmed Positive Confirmed Positive 05/29/2020 11:26 AM EDT [facility] Hep B Surface Ag Reactive(A) Nonreactive 05/29/2020 11:26 AM EDT [facility] Comment:Health Department no tified in accordance with reportable infectious disease guidelines. Serum specimen (specimen) 05/28/2020 3:41 PM EDT 05/28/2020 6:23 PM EDT [facility] - 05/29/2020 11:26 AM EDT The results of the multi-test panel are inconsistent. Repeat testing is recommended. Specimen is considered repeatedly Reactive. ??Confirmed using the [employer] HBsAg qualitative confirmation assay. Aris Moctezuma MD LAB BLOOD ORDERABLES Final Resul t Performing Organization Address [facility] Co de Phone Number [facility] [address] [facility]. [address] * Vancomycin, random (05/28/2020 3:41 PM EDT) Pathologist [facility] Vancomycin Random 16.3 ug/mL 05/28/2020 4:20 PM EDT [facility] Comment:Reference range not established for this test. Plasma specimen (specimen) 05/28/2020 3:41 PM EDT 05/28/2020 3:53 PM EDT Cristóbal Faith MD LAB BLOOD ORDERABLES Fi nal Result Performing Organization Address [facility] Co de Phone Number [address] * #1 Blood culture-Peripheral (05/28/2020 3:41 PM EDT) [facility] Culture Result No Growth After [address] [facility] Blood specimen (specimen) BLOOD SPECIMEN / Unknown 05/28/2020 3:41 PM EDT 05/28/2020 4:07 PM EDT Result [facility] María Galvez MD MICROBIOLOGY - GENERAL ORDERAB LES Final Result Performing Organization Address [facility] de Phone Number [address] * 2019 Novel Coronavirus (CoVID-19), FRANKLYN-B (05/28/2020 2:19 PM EDT) Pathologist [facility] SARS-CoV-2 Not Detected Not Detected 05/29/2020 10:53 AM EDT [facility] Comment: This test is an amplified nucleic acid assay performed on a real time PCR platform. ??This test was developed and its performance characteristics determined by the [facility]. ??This test has not been [...] ??Test results have been sent to the [facility] in accordance with state requirements. ??For a healthcare provider fact sheet, see https://www.fda.gov/media/514350/download. ??For a patient fact sheet, see https://www.fda.gov/media/820411/download. Test LOINC ordered 81847-9 2019 10:53 AM EDT [facility] Device identifier [employer]Taq[employer] COVID-19 Combo Kit_EUA 05/29/2020 10:53 AM EDT [facility] First Test No 05/29/2020 10:53 AM EDT [facility] Healthcare employee No 05/29/2020 10:53 AM EDT [facility] Symptomatic No 05/29/2020 10:53 AM EDT [facility] Hospitalized Yes 05/29/2020 10:53 AM EDT [facility] In ICU No 05/29/2020 10:53 AM EDT [facility] Congregate Care Resident No 05/29/2020 10:53 AM EDT [facility] No 05/29/2020 10:53 AM EDT [facility] Nasopharyngeal swab (specimen) NASOPHARYNGEAL STRUCTURE / Unknown 05/28/2020 2:19 PM EDT 05/28/2020 3:20 PM EDT Narrative [facility] - 05/29/2020 10:53 AM EDT Does [...] all that apply)->None of the above us María Galvez MD BODY FLUIDS AND STOOLS ORDERAB LES Final Result Performing Organization Address [facility] Co de Phone Number [facility] [address] [place] [address] * #2 Blood culture-Peripheral (05/28/2020 2:04 PM EDT) Culture Result No Growth After [address] [facility] Blood specimen (specimen) BLOOD SPECIMEN / Unknown 05/28/2020 2:04 PM EDT 05/28/2020 3:06 PM EDT us María Galvez MD MICROBIOLOGY - GENERAL ORDERAB LES Final Result Performing Organization Address [facility] Co de Phone Number [facility] [address] * Antibody Screen (05/28/2020 2:04 PM EDT) Antibody Screen Positive 05/28/2020 3:[address] [facility] Blood specimen (specimen) 05/28/2020 2:04 PM EDT 05/28/2020 2:19 PM EDT Narrative [facility] - 05/28/2020 3:46 PM EDT Testing performed by [facility] Transfusion Service us María Galvez MD BLOOD BANK TEST ORDERABLES Fin al Result Performing Organization Address [facility] Co de Phone Number [facility] [address] [place] [address] * ABO/Rh (05/28/2020 2:04 PM EDT) ABO Grouping O 05/28/2020 2:56 [address] EDT [facility] Rh Type Negative 05/28/2020 2:56 PM EDT [facility] Blood specimen (specimen) 05/28/2020 2:04 PM EDT 05/28/2020 2:19 PM EDT Result [facility] María Galvez MD BLOOD BANK TEST ORDERABLES Fin al Result Performing Organization Address [facility] Co de Phone Number [address] * Lactic Acid (05/28/2020 2:04 PM EDT) Lactate 0.8 0.5 - 2.2 mmol/L 05/28/2020 3:04 PM [address] [facility] Plasma specimen (specimen) 05/28/2020 2:04 PM EDT 05/28/2020 2:18 PM EDT Result [facility] María Galvez MD LAB BLOOD ORDERABLES Final Res ult Performing Organization Address [facility] Co de Phone Number [address] * (ABNORMAL) C-reactive protein (05/28/2020 2:04 PM EDT) CRP 190.6(H) 1.0 - 10.0 mg/L 05/28/2020 2:43 PM EDT [facility] Plasma specimen (specimen) 05/28/2020 2:04 PM EDT 05/28/2020 2:13 PM EDT Result [facility] Cristóbal Faith MD LAB BLOOD ORDERABLES Fi nal Result Performing Organization Address [facility] Co de Phone Number [address] * (ABNORMAL) Sed Rate (05/28/2020 2:04 PM EDT) Sed Rate 62(H) 0 - 15 mm/hr 05/28/2020 2:28 PM EDT [facility] Whole blood specimen (specimen) 05/28/2020 2:04 PM EDT 05/28/2020 2:13 PM EDT Cristóbal Faith MD LAB BLOOD ORDERABLES Fi nal Result Performing Organization Address [facility] de Phone Number [facility] [address] * (ABNORMAL) Protime-INR (05/28/2020 2:04 PM EDT) Protime 16.0(H) 12.1 - 15.1 seconds 05/28/2020 2:48 PM EDT [facility] INR 1.3(H) 0.9 - 1.1 05/28/2020 2:48 PM EDT [facility] Comment: RECOMMENDED THERAPEUTIC RANGES USING INR : ?Stable oral anticoagulant therapy: ? 2.0 - 3.0 ?Mechanical prosthetic heart valve: ? 2.5 - 3.5 ?Recurrent acute myocardial infarction: ? 2.5 - 3.5 Plasma specimen (specimen) 05/28/2020 2:04 PM EDT 05/28/2020 2:13 PM EDT Cristóbal Faith MD LAB BLOOD ORDERABLES Fi nal Result Performing Organization Address [facility] Co de Phone Number [facility] [address] * (ABNORMAL) Hepatic Function Panel (05/28/2020 2:04 PM EDT) Total Bilirubin 0.4 0.0 - 1.5 mg/dL 05/28/2020 2:43 PM EDT [facility] Bilirubin, Direct 0.12 0.00 - 0.40 mg/dL 05/28/2020 2:43 PM EDT [facility] AST 12(L) 13 - 39 U/L 05/28/2020 2:43 PM EDT [facility] ALT 18 7 - 52 U/L 05/28/2020 2:43 PM EDT [facility] Alkaline Phosphatase 114 36 - 125 U/L 05/28/2020 2:43 PM EDT [facility] Total Protein 7.0 6.4 - 8.9 g/dL 05/28/2020 2:43 PM EDT [facility] Albumin 3.6 3.5 - 5.7 g/dL 05/28/2020 2:43 PM EDT [facility] Bilirubin, Indirect 0.28 0.00 - 1.10 mg/dL 05/28/2020 2:43 PM EDT [facility] Plasma specimen (specimen) 05/28/2020 2:04 PM EDT 05/28/2020 2:13 PM EDT Cristóbal Faith MD LAB BLOOD ORDERABLES Fi nal Result [facility] [address] * Magnesium (05/28/2020 2:04 PM EDT) Magnesium 1.9 1.5 - 2.5 mg/dL 05/28/2020 2:43 PM EDT [facility] Plasma specimen (specimen) 05/28/2020 2:04 PM EDT 05/28/2020 2:13 PM EDT Cristóbal Faith MD LAB BLOOD ORDERABLES Fi nal Result [facility] [address] * (ABNORMAL) Renal Function Panel w/EGFR (05/28/2020 2:04 PM EDT) Sodium 137 133 - 146 mmol/L 05/28/2020 2:43 PM EDT [facility] Potassium 5.5(H) 3.5 - 5.3 mmol/L 05/28/2020 2:43 PM EDT [facility] Chloride 96(L) 98 - 110 mmol/L 05/28/2020 2:43 PM EDT [facility] CO2 23 21 - 33 mmol/L 05/28/2020 2:43 PM EDT [facility] Anion Gap 18(H) 3 - 16 mmol/L 05/28/2020 2:43 PM EDT [facility] BUN 88(H) 7 - 25 mg/dL 05/28/2020 2:43 PM EDT [facility] Creatinine 13.63(H) 0.60 - 1.30 mg/dL 05/28/2020 2:43 PM EDT [facility] Glucose 115(H) 70 - 100 mg/dL 05/28/2020 2:43 PM EDT [facility] Calcium 9.5 8.6 - 10.3 mg/dL 05/28/2020 2:43 PM EDT [facility] Phosphorus 8.3(H) 2.1 - 4.7 mg/dL 05/28/2020 2:43 PM EDT [facility] Albumin 3.6 3.5 - 5.7 g/dL 05/28/2020 2:43 PM EDT [facility] Osmolality, Calculated 312(H) 278 - 305 mOsm/kg 05/28/2020 2:43 PM EDT [facility] eGFR AA CKD-EPI 4 See note. 0 2:43 PM EDT [facility] Comment: As of 2015 the estimated [...] equation to estimate glomerular filtration rate. ??[employer]. 2009:150(9):604-12 eGFR NONAA CKD-EPI 4 See note. 05/28/2020 2:43 PM EDT [facility] Comment: As of 2015 the estimated [...] equation to estimate glomerular filtration rate. ??[employer]. 2009:150(9):604-12 Plasma specimen (specimen) 05/28/2020 2:04 PM EDT 05/28/2020 2:13 PM EDT us Cristóbal Faith MD LAB BLOOD ORDERABLES Fi nal Result [facility] [address] [facility] [place] [address], [facility] * (ABNORMAL) CBC (05/28/2020 2:04 PM EDT) WBC 6.9 3.8 - 10.8 10E3/uL 05/28/2020 3:11 PM EDT [facility] RBC 2.62(L) 4.20 - 5.80 10E6/uL 05/28/2020 3:11 PM EDT [facility] Hemoglobin 7.9(L) 13.2 - 17.1 g/dL 05/28/2020 3:11 PM EDT [facility] Hematocrit 24.2(L) 38.5 - 50.0 % 05/28/2020 3:11 PM EDT [facility] MCV 92.2 80.0 - 100.0 fL 05/28/2020 3:11 PM EDT [facility] MCH 30.1 27.0 - 33.0 pg 05/28/2020 3:11 PM EDT [facility] MCHC 32.7 32.0 - 36.0 g/dL 05/28/2020 3:11 PM EDT [facility] RDW 14.8 11.0 - 15.0 % 05/28/2020 3:11 PM EDT [facility] Platelets 340 140 - 400 10E3/uL 05/28/2020 3:11 PM EDT [facility] MPV 7.5 7.5 - 11.5 fL 05/28/2020 3:11 PM EDT [facility] Whole blood specimen (specimen) 05/28/2020 2:04 PM EDT 05/28/2020 2:13 PM EDT us Cristóbal Faith MD LAB BLOOD ORDERABLES Fi nal Result Performing Organization Address [facility] Co de Phone Number [facility] [address] [place] [address], [facility] * X-ray Comparison Images (05/28/2020 1:41 PM EDT) Narrative EXTERNAL - 05/28/2020 1:41 PM EDT Images associated with this accession number were presented to us for comparison to an examination performed here. us [facility] ORDERAB LES Final Result Performing Organization Address [facility] Co de Phone Number EXTERNAL * X-ray Comparison Images (05/28/2020 1:41 PM EDT) Narrative EXTERNAL - 05/28/2020 1:41 PM EDT Images associated with this accession number were presented to us for comparison to an examination performed here. us [facility] ORDERAB LES Final Result Performing Organization Address [facility] Co de Phone Number EXTERNAL * X-ray Comparison Images (05/28/2020 1:40 PM EDT) Narrative EXTERNAL - 05/28/2020 1:40 PM EDT Images associated with this accession number were presented to us for comparison to an examination performed here. us [facility] ORDERAB LES Final Result Performing Organization Address [facility] Co de Phone Number EXTERNAL * ECG 12 lead (MUSE) (05/28/2020 1:29 PM EDT) 05/28/2020 1:29 PM EDT Narrative MUSE - 05/29/2020 1:53 PM EDT Ventricular Rate: ??102 ??BPM Atrial Rate: ??102 ??BPM P-R Interval: ??172 ??ms QRS Duration: ??100 ??ms QT: ??352 ??ms QTc: ??458 ??ms P [place]: ??46 ??degrees R [place]: ??53 ??degrees T [place]: ??98 ??degrees Diagnosis Line: ?? POOR DATA QUALITY, INTERPRETATION MAY BE ADVERSELY AFFECTED ^ SINUS TACHYCARDIA ^ NONSPECIFIC T WAVE CHANGE ^ ABNORMAL ECG ^ COMPARED TO THE ECG OF 21-JUL-2019 01:50, ^ THERE IS NO SIGNIFICANT CHANGE ^ Confirmed by Carlo PEREZ TEHMINA ([id number]) on 05/29/2020 1:53:27 PM us María Galvez MD ECG ORDERABLES Final Result MUSE documented in this encounter Visit Diagnoses Not [...] AM EDT 975 mg ALPRAZolam (XANAX) tablet 0.5 mg 0.5 mg, Oral, Daily as needed, Anxiety, before dialysis. Please contact before giving otherwise, Starting on 05/30/20 at 1223 Given 06/08/2020 12:42 PM EDT 0.5 mg carBAMazepine (TEGRETOL) tablet 200 mg 200 mg, Oral, At Bedtime (2100), First dose on Bobbi 05/28/20 at 2100 Given 06/07/2020 8:16 PM EDT 200 mg Given 06/06/2020 8:46 PM EDT 200 mg Given 06/05/2020 9:41 PM EDT 200 mg cycloSPORINE modified (NEORAL) capsule 75 mg [...] 10:39 AM EDT 6,000 Units Right Arm fluconazole (DIFLUCAN) tablet 200 mg 200 mg, Oral, Daily, First dose on Mon06/07/20 at 1330, For 14 days Given 06/08/2020 8:20 AM EDT 200 mg Given 06/07/2020 5:36 PM EDT 200 mg gabapentin (NEURONTIN) capsule 200 mg 200 mg, Oral, At Bedtime (2099), First dose (after last modification) on Mon06/04/20 at 2100 Given 06/07/2020 8:18 PM EDT 200 mg Given 06/06/2020 8:48 PM EDT 200 mg Given 06/05/2020 9:35 PM EDT 200 mg glucose chewable tablet [...] day), First dose on 06/01/20 at 2100 Given 06/08/2020 5:11 PM EDT 100 mg Given 06/08/2020 4:17 AM EDT 100 mg Given 06/07/2020 8:18 PM EDT 100 mg HYDROmorphone (DILAUDID) injection Syrg 0.5 mg 0.5 mg, Intravenous, Every 6 hours PRN, moderate pain (NRS-4-6), severe pain (NRS 7-10), Starting on Mon06/05/20 at 1803, For 3 days 1 hour Given 06/08/2020 3:19 PM EDT 0.5 mg Given 06/08/2020 8:32 AM EDT 0.5 mg Given 06/07/2020 8:24 PM EDT 0.5 mg insulin lispro (humaLOG) injection 0-5 Units 0-5 Units, Subcutaneous, 3 times daily before meals, First dose on 05/31/20 at 0900, HIGH ALERT MEDICATION Given 06/08/2020 5:13 PM EDT 2 Units Right Arm Given 06/08/2020 10:14 AM EDT 1 Units A bdominal Tissue Given 06/07/2020 5:58 PM EDT 1 Units Ri ght Arm lidocaine (LIDODERM) 5 % 1 patch 1 patch, Transdermal, Every 24 hours, First dose on 05/31/20 at 1230, LEAVE PATCH ON FOR 12 HOURS,THEN REMOVE FOR 12 HOURS. Patch Applied 06/08/2020 11:34 AM EDT 1 patch Oth er Patch Applied 06/02/2020 1:19 PM EDT 1 patch Other Patch Applied 05/31/2020 1:40 PM EDT 1 patch Other melatonin Tab 3 mg 3 mg, Oral, At Bedtime (2100), First dose on Mon05/30/20 at 2100, FOR [...] Given 06/07/2020 8:10 AM EDT 25 mg NIFEdipine (PROCARDIA-XL) 24 hr tablet 90 mg 90 mg, Oral, 2 times daily, First dose (after last modification) on Mon06/02/20 at 2100, DO NOT CRUSH Given 06/08/2020 8:20 AM EDT 90 mg Given 06/07/2020 8:23 PM EDT 90 mg Given 06/07/2020 8:10 AM EDT 90 mg ondansetron (ZOFRAN) injection 4 mg 4 mg, Intravenous, Every 8 hours PRN, Nausea and/or Vomiting, Starting on Mon05/29/20 at 1202 Given 06/08/2020 8:32 AM EDT 4 mg Given 06/04/2020 2:50 AM EDT 4 mg Given 06/03/2020 10:13 AM EDT 4 mg pantoprazole (PROTONIX) EC tablet 40 mg 40 mg, Oral, Daily6, First dose on Mon05/30/20 at 0600, Do Not Crush Given 06/08/2020 4:18 AM EDT 40 mg Given 06/07/2020 4:36 AM EDT 40 mg Given 06/06/2020 4:42 AM EDT 40 mg polyethylene glycol (MIRALAX) packet 17 g 17 g, Oral, Daily as needed, Constipation, Starting on 06/07/20 at 2100 proMETHazine (PHENERGAN) tablet 12.5 mg 12.5 mg, Oral, Every 6 hours PRN, Nausea, Vomiting, Starting on Mon05/29/20 at 1203 Given 06/06/2020 8:45 PM ED T 12.5 mg Given 06/05/2020 3:42 PM EDT 12.5 mg Given 05/31/2020 4:35 PM EDT 12.5 mg quetiapine (SEROQUEL) half tablet 12.5 mg 12.5 mg, Oral, At Bedtime (2099), First dose (after last reorder) on 05/30/20 at 2100, PRECUT BY PHARMACY Given 06/07/2020 8:16 PM EDT 12.5 mg Given 06/06/2020 8:46 PM EDT 12.5 mg Given 06/05/2020 9:41 PM EDT 12.5 mg senna-docusate (SENNA-S) 8.6-50 mg per tablet 2 tablet 2 tablet, Oral, Nightly PRN, Constipation, Starting on 06/07/20 at 2100 terazosin (HYTRIN) capsule 10 mg 10 mg, [...] PM EDT 1,000 mg 250 mL/hr vancomycin intermittent/pulse dosing PLACEHOLDER ORDER Intravenous, [...] - Provider: Roxi Gurrola RN - Reason: Contraindicated)0902 (Given - Provider: Yana Monroe RN)173 (Given - Provider: Yana Monroe RN)2015 (Not Given - Provider: Roxi Gurrola RN - Reason: Order parameters not met - Comment: 173 given) 0153 (Given - Provider: Roxi Gurrola RN)0820 (Given - Provider: Lindsay Rivera, JANA)1711 (Given - Provider: Lindsay Rivera, JANA) carBAMazepine (TEGRETOL) tablet 200 mg 200 mg, Oral, At Bedtime (2100), First dose on Bobbi 05/28/20 at 2100 204 (Given - Provider: Roxi Gurrola RN) 2015 (Given - Provider: Roxi Gurrola RN) cycloSPORINE modified (NEORAL) capsule 50 mg (CANCELED) 50 mg, Oral, Every morning, First dose (after last modification) on 06/06/20 at 0900, LEVEL 2 HAZARDOUS MEDICATION 0926 (Given - Provider: Yana Monroe RN) 0902 (Given - Provider: Yana Monroe RN) cycloSPORINE [...] mg, Oral, At Bedtime (2099), First dose (after last modification) on Mon06/04/20 at 2100 2047 (Given - Provider: Roxi Gurrola RN) 2017 (Given - Provider: Roxi Gurrola RN) heparin (porcine) injection 5,000 Units 5,000 Units, Subcutaneous, Every 8 hours scheduled (3 times per day), First dose on Mon06/03/20 at 2100 0443 (Not Given - Provider: Roxi Gurrola RN - Reason: Patient/family refused)1251 (Not Given - Provider: Yana Monroe RN - Reason: Patient/family refused)2044 (Not Given - Provider: Roxi Gurrola RN [...] day), First dose on Mon06/01/20 at 2100 0442 (Given - Provider: Roxi Gurrola RN)1252 (Given - Provider: Yana Monroe RN)2047 (Given - Provider: Roxi Gurrola RN) 0435 (Given - Provider: Roxi Gurrola RN)1237 (Given - Provider: Yana Monroe RN)2017 (Given - Provider: Roxi Gurrola RN) 0417 (Given - Provider: Roxi Gurrola RN)1711 (Given - Provider: Lindsay Rivera RN) insulin lispro (humaLOG) injection 0-5 Units 0-5 Units, Subcutaneous, 3 times daily before meals, First dose on Mon05/31/20 at 0900, HIGH ALERT MEDICATION 1003 (Not [...] Transdermal, Every 24 hours, First dose on Mon05/31/20 at 1230, LEAVE PATCH ON FOR 12 [...] 3 mg 3 mg, Oral, At Bedtime (2100), First dose on Mon05/30/20 at 2100, FOR [...] RN)2048 (Given - Provider: Roxi Gurrola RN) 0903 (Given - Provider: Yana Monroe RN)1237 (Given - Provider: Yana Monroe RN)1736 (Given - Provider: Yana Monroe RN)2016 (Given - Provider: Roxi Gurrola RN) 0820 (Given - Provider: Lindsay Rivera RN)1300 (Not Given - Provider: Lindsay Rivera RN - Reason: Patient not available - Comment: Patient in dialysis)1711 (Given - Provider: Lindsay Rivera RN) metoprolol tartrate (LOPRESSOR) tablet 25 mg 25 mg, Oral, 2 times daily, First dose on Mon06/03/20 at 2100 0925 (Given - Provider: Yana Monroe RN)2048 (Given - Provider: Roxi Gurrola RN) 0810 (Given - Provider: Yana Monroe RN)2019 (Given - Provider: Roxi Gurrola RN) 0821 (Given by Other - Provider: Lindsay Rivera, JANA) NIFEdipine (PROCARDIA-XL) 24 hr tablet 90 mg 90 mg, Oral, 2 times daily, First dose (after last modification) on Mon06/02/20 at 2100, DO NOT CRUSH 0926 (Given - Provider: Yana Monroe RN)2046 (Given - Provider: Roxi Gurrola RN) 08 (Given - Provider: Yana Monroe RN)2022 (Given - Provider: Roxi Gurrola RN) 08 (Given - Provider: Lindsay Rivera, JANA) oxyCODONE (ROXICODONE) immediate release tablet 5 mg (COMPLETED) 5 mg, Oral, Once, On 06/08/20 at 0130, For 1 dose 0153 (Given - Provider: Roxi Gurrola RN) pantoprazole (PROTONIX) EC tablet 40 mg 40 mg, Oral, Daily6, First dose on Mon05/30/20 at 0600, Do Not Crush 0442 (Given - Provider: Roxi Gurrola RN) 0436 (Given - Provider: Roxi Gurrola RN) 0418 (Given - Provider: Roxi Gurrola RN) quetiapine (SEROQUEL) half tablet 12.5 mg 12.5 mg, Oral, At Bedtime (2099), First dose (after last reorder) on 05/30/20 [...] apply): Musculoskeletal, Type of Therapy: New Therapy 1735 (New Bag - Provider: Yana Monroe RN) PRN Medication Order 06/06/2020 06/07/2020 06/08/2020 ALPRAZolam (XANAX) tablet 0.5 mg 0.5 mg, Oral, Daily as needed, Anxiety, before dialysis. Please contact MD before giving otherwise, Starting on 05/30/20 at 1223 1242 (Given - Provider: Allison Martinez RN) dextrose 50 % in water (D50W) [...] Yana Monroe RN)2101 (Given - Provider: Roxi Gurrola, JANA) 0448 (Given - Provider: Roxi Gurrola, JANA)1258 (Given - Provider: Erika Pitts RN)2023 (Given - Provider: Roxi Gurrola RN) 0832 (Given - Provider: Lindsay Rivera RN)1519 (Given - Provider: Allison Martinez, JANA) lidocaine [...] Oral, Daily as needed, Constipation, Starting on 06/07/20 at 2100 2015 (Not Given - Provider: Roxi Gurrola RN - Reason: Patient/family refused) proMETHazine (PHENERGAN) tablet 12.5 mg 12.5 mg, Oral, Every 6 hours PRN, Nausea, Vomiting, Starting on Mon05/29/20 at 1203 2045 (Given - Provider: Roxi Gurrola RN) senna-docusate (SENNA-S) 8.6-50 mg per tablet 2 tablet 2 tablet, Oral, Nightly PRN, Constipation, Starting on 06/07/20 at 2100 2014 (Not Given - Provider: Roxi Gurrola [...] documented as of this encounter Care Teams Ingot Car Operator Relationship Specialty Start Date End Date Edgar Fournier MD [address] [place] [address] [place] [address] PCP - General 08/18/17 06/23/21 Maile Valles, JANA Txp Post Coordinator Transplant Hepatology 11/07/17 Jack Ordoñez MD [address] [place] [phone] Consulting Physician Transplant Hepatology 01/05/18 Estephania Sharif, DarrianD Pharmacist Pharmacist 11/11/19 documented as of this encounter
--- OUTSIDE RECORDS SUMMARY | 2024-07-12 12:42 | XMS_ITS | Encounter Summary ---
Author Organization [facility] Address [address] [place] [address] Care Team Providers Care Ball Worker Name Role Phone Edgar Fournier MD Primary Care Provider [phone] Maile Valles RN Unavailable Unavail able Jack Ordoñez MD Unavailable [phone] Estephania Sharif PharmD Unavailable Christine vailable [...] release of HIV test results or diagnoses. [id number] Encounter Details Date Type Department Care Team (Latest Contact Info) Description 05/28/2020 Travel Social History Tobacco Use Types Packs/Day [...] [facility] Interventional Radiology [address] [place] [phone] Herve Carrillo MD [address] [facility] [address] [facility] [place] [phone] documented as of this encounter Visit Diagnoses Not on filedocumented in this encounter Additional Health Concerns Infection Onset Date Last Indicated Resolved Time Rule Out COVID-19 05/28/2020 05/28/2020 05/29/2020 10:53 AM EDT Assessment Noted Time PHQ-9 Depression Total Score: 0 12/06/19 18 3:00 PM EDT documented as of this encounter Care Teams Ball Worker Relationship Specialty Start Date End Date Edgar Fournier MD [address] [place] [address] [place] [address] PCP - General 08/18/17 06/23/21 Maile Valles, RN Txp Post Coordinator Transplant Hepatology 11/07/17 Jack Ordoñez MD [address] [place] [phone] Consulting Physician Transplant Hepatology 01/05/18 Estephania Sharif, DarrianD Pharmacist Pharmacist 11/11/19 documented as of this encounter
--- OUTSIDE RECORDS SUMMARY | 2024-07-12 12:42 | XMS_ITS | Encounter Summary ---
Author Organization [facility] Address [address] [place] [address] Care Team Providers Care Anodic Operator Name Role Phone Edgar Fournier MD Primary Care Provider [phone] Maile Valles RN Unavailable Unavail able Jack Ordoñez MD Unavailable [phone] Estephania Sharif PharmD Unavailable Christine vailable [...] release of HIV test results or diagnoses. [id number] Reason for Visit * Reason Comments Advice Only Encounter Details Date Type Department Care Team (Late st Contact Info) Description 05/06/2020 Telephone [facility] Liver Transplant at [address] [place] [phone] Maile Valles, dye expert Only Social History Tobacco Use Types Packs/Day [...] Telephone Encounter - Maile Valles RN - 05/06/2020 12:12 PM EDT Patient's called to report that patient is at [facility] in [place]. Patient started having pain in back over a week ago as he was finishing his HD treatment. He went to the hospital 5 times since then to try to determine what's wrong and was eventually transferred to [facility]. Per patient's , patient has infection in back and has been unable to stand or walk for days. She stated that patient had some blood in his stool so had an upper endoscopy, but it was negative. reports patient with altered mental status. Reviewed Care Everywhere. Patient has discitis and had a lumbar laminectomy. Liver numbers on 04/30/20 CMP are stable. Explained that patient is welcome to ask for a transfer to [facility], but issue is not liver transplant related. She verbalized understanding. Will route to Alp Provider for communication. documented in this encounter Plan of Treatment Upcoming Encounters Date Type Department Care Team (Late st Contact Info) Description 07/15/2024 9:00 AM EST Hospital Encounter [facility] Interventional Radiology [address] [place] [phone] Herve Carrillo MD [address] [facility] [address] Surgery [place] [phone] documented as of this encounter Visit Diagnoses Not on filedocumented in this encounter Additional Health Concerns Assessment Noted Time PHQ-9 Depression Total Score: 0 12/06/19 18 3:00 PM EDT documented as of this encounter Care Teams Anodic Operator Relationship Specialty Start Date End Date Edgar Fournier MD [address] [place] [phone] PCP - General 08/18/17 06/23/21 Maile Valles, RN Txp Post Coordinator Transplant Hepatology 11/07/17 Jack Ordoñez MD [address] [place] [address] Consulting Physician Transplant Hepatology 01/05/18 Estephania Sharif, PharmD Pharmacist Pharmacist 11/11/19 documented as of this encounter
--- OUTSIDE RECORDS SUMMARY | 2024-07-12 12:42 | XMS_ITS | Encounter Summary ---
Author Organization [facility] Address [address] [place] [address] Care Team Providers Care Metaphysician Name Role Phone Edgar Fournier MD Primary Care Provider [phone] Maile Valles RN Unavailable Unavail able Jack Ordoñez MD Unavailable [phone] Estephania Sharif PharmD Unavailable Christine vailable [...] release of HIV test results or diagnoses. [id number] Health Encounter Details Date Type Department Care Team (Late st Contact Info) Description 05/06/2020 Telephone [facility] Liver Transplant at [address] [place] [address] Lynnette Muhammad MA Social History Tobacco [...] Telephone Encounter - Lynnette Muhammad MA - 05/06/2020 11:56 AM EDT Pt called to update coordinator that pt is in a [facility]. Call transferred to coordinator. documented in this encounter Plan of Treatment Upcoming Encounters Date Type Department Care Team (Late st Contact Info) Description 07/15/2024 9:00 AM EST Hospital Encounter [facility] Interventional Radiology [address] [place] [phone] Herve Carrillo MD [address] [facility] [address] [place] [address] documented as of this encounter Visit Diagnoses Not on filedocumented in this encounter Additional Health Concerns Assessment Noted Time PHQ-9 Depression Total Score: 0 12/06/19 18 3:00 PM EDT documented as of this encounter Care Teams Metaphysician Relationship Specialty Start Date End Date Edgar Fournier MD [address] [place] [address] [place] [address] PCP - General 08/18/17 06/23/21 Maile Valles, RN Txp Post Coordinator Transplant Hepatology 11/07/17 Jack Ordoñez MD [address] [place] [phone] Consulting Physician Transplant Hepatology 01/05/18 Estephania Sharif, DarrianD Pharmacist Pharmacist 11/11/19 documented as of this encounter
--- OUTSIDE RECORDS SUMMARY | 2024-07-12 12:42 | XMS_ITS | Encounter Summary ---
Author Organization [facility] Address [address] [place] [address] Care Team Providers Care Toll Repairer Central Office Name Role Phone Edgar Fournier MD Primary Care Provider [phone] Maile Valles RN Unavailable Unavail able Jack Ordoñez MD Unavailable [phone] Estephania Sharif PharmD Unavailable Christine vailable [...] release of HIV test results or diagnoses. [id number] Health Encounter Details Date Type Department Care Team (Late st Contact Info) Description 04/08/2020 Orders Only [facility] at [facility] [address] [place] [phone] Eneida Trinh PA [address] [place] [phone] Social History Tobacco Use Types Packs/Day Years [...] Description 07/15/2024 9:00 AM EST Hospital Encounter [facility] Interventional Radiology [address] [place] [phone] Herve Carrillo MD 3130 [facility] 3200 [place] [phone] documented as of this encounter Visit Diagnoses Not on filedocumented in this encounter Additional Health Concerns Assessment Noted Time PHQ-9 Depression Total Score: 0 12/06/19 18 3:00 PM EDT documented as of this encounter Care Teams Toll Repairer Central Office Relationship Specialty Start Date End Date Edgar Fournier MD [address] [place] [address] [place] [address] PCP - General 08/18/17 06/23/21 Maile Valles, RN Txp Post Coordinator Transplant Hepatology 11/07/17 Jack Ordoñez MD [address] [place] [phone] Consulting Physician Transplant Hepatology 01/05/18 Estephania Sharif, PharmD Pharmacist Pharmacist 11/11/19 documented as of this encounter
[2024-07-12 12:43] LABS: Basophils # 0.1 K/mm3 (0-0.2); Basophils % 0.8 % (0.1-2.0); Eosinophils # 0.1 K/mm3 (0.0-0.4); Eosinophils % 1.8 % (0.1-12.0); Hematocrit 35.3 % (42.0-52.0); Hemoglobin 11.2 g/dL (14.1-18.0); Lymphocytes # 1.5 K/mm3 (0.7-4.5); Lymphocytes % 19.9 % (10-50); Mean Corpuscular HGB Conc 31.8 g/dL (31.8-35.4); Mean Corpuscular Hemoglobin 32.3 pg (27.0-31.2); Mean Corpuscular Volume 101.4 fl (80-94); Mean Platelet Volume 7.9 fl (7.4-10.4); Monocytes # 0.4 K/mm3 (0.1-1.0); Monocytes % 5.4 % (1.7-9.3); Neutrophils # 5.4 K/mm3 (1.8-7.8); Neutrophils % 72.1 % (37.0-80.0); Platelet Count 313 K/mm3 (142-424); Red Blood Count 3.48 M/mm3 (4.60-6.20); Red Cell Distribution Width 16.4 % (11.5-17.5); White Blood Count 7.5 K/mm3 (4.8-10.8)
--- OUTSIDE RECORDS SUMMARY | 2024-07-12 12:43 | XMS_ITS | Encounter Summary ---
Author Organization [facility] Address [address] [place] [address] Care Team Providers Care Grain Shipper Name Role Phone Edgar Fournier MD Primary Care Provider [phone] Maile Valles RN Unavailable Unavail able Jack Ordoñez MD Unavailable [phone] Estephania Sharif PharmD Unavailable Christine vailable [...] release of HIV test results or diagnoses. [id number] Reason for Visit * Reason Comments Medication Refill Encounter Details Date Type Department Care Team (Late st Contact Info) Description 03/09/2020 Refill [facility] Liver Transplant at [facility] 3130 [facility] [address] [place] [address] Jack Ordoñez MD [address] [place] [address] Social History Tobacco Use Types Packs/Day Years Used Date Smoking Tobacco: Never Smokeless Tobacco: Never Alcohol Use Standard Drinks/Week Comments No 0 (1 standard drink = 0.6 oz pur e alcohol) PHQ-2 Answer Date Recorded PHQ-2 Score 0 05/28/2019 Sex and Gender Information Value Date Recorded Sex Assigned at Not on file Legal Sex Male 11:05 AM EDT Gender Identity Not on file Sexual Orientation Not on file documented as of this encounter Plan of Treatment Upcoming Encounters Date Type Department Care Team (Late st Contact Info) Description 07/15/2024 9:00 AM EST Hospital Encounter [facility] Interventional Radiology [address] [place] [phone] Herve Carrillo MD 3130 [facility] [address] [place] [phone] documented as of this encounter Visit Diagnoses Not on filedocumented in this encounter Additional Health Concerns Assessment Noted Time PHQ-9 Depression Total Score: 0 12/06/19 18 3:00 PM EDT documented as of this encounter Care Teams Grain Shipper Relationship Specialty Start Date End Date Edgar Fournier MD [address] [place] [address] [place] [address] PCP - General 08/18/17 06/23/21 Maile Valles, JANA Txp Post Coordinator Transplant Hepatology 11/07/17 Jack Ordoñez MD [address] [place] [phone] Consulting Physician Transplant Hepatology 01/05/18 Estephania Sharif, DarrianD Pharmacist Pharmacist 11/11/19 documented as of this encounter
--- OUTSIDE RECORDS SUMMARY | 2024-07-12 12:43 | XMS_ITS | Encounter Summary ---
Author Organization [facility] Address [facility] [place] [address] Care Team Providers Care Meat Press Operator Name Role Phone Edgar Fournier MD Primary Care Provider [phone] Maile Valles RN Unavailable Unavail able Jack Ordoñez MD Unavailable [phone] Estephania Sharif PharmD Unavailable Christine vailable [...] release of HIV test results or diagnoses. [id number] Reason for Referral * Physician/ANUSHA (Routine) - Closed Specialty Diagnoses / Procedures Referred By Contact Referred To Contact Pre-Admission Testing Diagnoses Morbid obesity with BMI of 40.0-44.9, adult ([facility]) Hung Trivedi MD Phone: tel: fax: [facility] at [address] [address] Phone: tel: fax: Referral ID Status Reason Start Date Expiration Date Visits Re quested Visits Authorized [id number] Closed 02/24/2020 08/22/2020 1 1 * Surgical (Routine) - Closed Specialty Diagnoses / Procedures Referred By Contac t Referred To Contact Surgery Diagnoses Morbid obesity with BMI of 40.0-44.9, adult ([facility]) Procedures Case request operating room: GASTRECTOMY SLEEVE LAPAROSCOPIC Hung Trivedi MD Phone: tel: fax: Referral ID Status Reason Start Date Expiration Date Visits Re quested Visits Authorized [id number] Closed 02/24/2020 08/22/2020 1 1 Encounter Details Date Type Department Care Team (Latest Contact Info) Description 02/21/2020 Orders Only [facility] Transplant Related Interdisciplinary Metabolic Surgery at [facility] [address] [facility] [address] [place] [address] Hung Trivedi MD [address] [place] [address] Morbid obesity with BMI of 40.0-44.9, adult ([facility]) (Primary Dx) Social History Tobacco Use Types [...] have Coronavirus / COVID-19? No / Unsure 01/27/2020 12:45 PM EDT documented as of this encounter Plan of Treatment Upcoming Encounters Date Type Department Care Team (Late st Contact Info) Description 07/15/2024 9:00 AM EST Hospital [facility] Interventional Radiology [address] [place] [address] Herve Carrillo MD [address] [place] [address] documented as of this encounter Procedures Procedure Name Priority Date/Time Associated Diagnosis Comments AMB REFERRAL TO [facility] VISIT WITH ANESTHESIOLOGIST Routine 03/12/2020 1:24 PM EDT Morbid obesity with BMI of 40.0-44.9, adult (CMS-HCC) documented in this encounter Results * [facility] Visit with Anesthesiologist (C) (03/12/2020 1:24 PM EDT) us Hung Trivedi MD AMB REF SUPPORT SERVICES ORDERAB LES Final Result EXTERNAL documented in this encounter Visit Diagnoses Diagnosis Morbid obesity with BMI of 40.0-44.9, adult (CMS-HCC)- Primary documented in this encounter Additional Health Concerns Assessment Noted Time PHQ-9 Depression Total Score: 0 12/06/19 18 3:00 PM EDT documented as of this encounter Care Teams Meat Press Operator Relationship Specialty Start Date End Date Edgar Fournier MD [address] [place] [address] [place] [address] PCP - General 08/18/17 06/23/21 Maile Valles, JANA Txp Post Coordinator Transplant Hepatology 11/07/17 Jack Ordoñez MD [facility] [place] [address] Consulting Physician Transplant Hepatology 01/05/18 Estephania Sharif, DarrianD Pharmacist Pharmacist 11/11/19 documented as of this encounter
--- OUTSIDE RECORDS SUMMARY | 2024-07-12 12:43 | XMS_ITS | Encounter Summary ---
Author Organization [facility] Address [address] [place] [address] Care Team Providers Care Assembling Inspector Name Role Phone Edgar Fournier MD Primary Care Provider [phone] Maile Valles RN Unavailable Unavail able Jack Ordoñez MD Unavailable [phone] Estephania Sharif PharmD Unavailable Christine vailable [...] release of HIV test results or diagnoses. [id number] Reason for Visit * Reason Comments Pap Medication Refill Encounter Details Date Type Department Care Team (Late st Contact Info) Description 03/23/[address] [facility] Specialty Pharmacy [address] [place] [address] Elmira Hussein I, RXT Social History [...] encounter Progress Notes * MERARY Palma - 03/23/2020 3:25 PM EDT MEDICATION ACCESS SERVICES Refill reordered for [facility] from [facility] to [facility]. Drug will be delivered to patient's home on 03/25/2020. Elmira Hussein Medication Access Services phone fax documented in this encounter Plan of Treatment Upcoming Encounters Date Type Department Care Team (Late st Contact Info) Description 07/15/2024 9:00 AM EST Hospital Encounter [facility] Interventional Radiology [address] [place] [address] Herve Carrillo MD 3130 [facility] 3200 [place] [phone] documented as of this encounter Visit Diagnoses Not on filedocumented in this encounter Additional Health Concerns Assessment Noted Time PHQ-9 Depression Total Score: 0 12/06/19 18 3:00 PM EDT documented as of this encounter Care Teams Assembling Inspector Relationship Specialty Start Date End Date Edgar Fournier MD [address] [place] [address] [place] [address] PCP - General 08/18/17 06/23/21 Maile Valles, JNAA Txp Post Coordinator Transplant Hepatology 11/07/17 Jack Ordoñez MD [address] [place] [phone] Consulting Physician Transplant Hepatology 01/05/18 Estephania Sharif, PharmD Pharmacist Pharmacist 11/11/19 documented as of this encounter
--- OUTSIDE RECORDS SUMMARY | 2024-07-12 12:43 | XMS_ITS | Encounter Summary ---
Author Organization [facility] Address [address] [place] [address] Care Team Providers Care Tip Scourer Name Role Phone Edgar Fournier MD Primary Care Provider [phone] Maile Valles RN Unavailable Unavail able Jack Ordoñez MD Unavailable [phone] Estephania Sharif PharmD Unavailable Christine vailable [...] release of HIV test results or diagnoses. [id number] Health Encounter Details Date Type Department Care Team (Latest Contact Info) Description 01/27/2020 12:51 PM EDT - 01/27/2020 11:59 PM EDT Hospital Encounter [facility] Pulmonary Function Lab [address] [place] [phone] Hung Trivedi MD [address] [place] [address] Pre-op evaluation; Morbid obesity ([facility]) Discharge Disposition: Home or Self Care WITHOUT [...] PM EDT documented as of this encounter Medications at [...] mg total) by mouth if needed. 8 blood sugar diagnostic [facility] Use to test blood sugar up to 4 times a day. Diagnosis for use: E 9.65. For use with One Touch Verio meters. 150 strip 5 8 03/18/20 22 blood-glucose meter (ONETOUCH VERIO SYSTEM) [facility] Use as instructed. 1 each 8 03/18/20 22 calcitRIOL (ROCALTROL) 0.25 MCG capsule Take by mouth. 0 06/25/20 20 calcium acetate,phosphat bind, (PHOSLO) 667 mg capsule Take by mouth. 0 06/25/20 20 carBAMazepine ER (TEGRETOL XR) 200 MG 12 hr tablet Take by mouth. 0 06/25/20 20 carvedilol (COREG) 25 MG tablet Take 2 tablets (50 mg total) by mouth 2 times a day with meals. 120 tablet 5 8 03/12/20 20 cloNIDine HCl (CATAPRES) 0.1 MG tablet Take 1 tablet (0.1 mg total) by mouth 2 times a day. 9 05/28/20 20 cycloSPORINE modified (NEORAL) 25 MG capsule Take 2 capsules (50 mg total) by mouth 2 times a day. 120 capsule 5 12/27/2019 8:54 AM EDT 0 03/09/20 20 cycloSPORINE, SANDIMMUNE, 25 MG capsule Take by mouth. 0 06/25/20 20 entecavir (BARACLUDE) 0.5 MG tablet Take [...] spray Use into each nostril. 0 11/01/19 gabapentin (NEURONTIN) 100 MG capsuleIndications: Neuropathy Take 4 capsules (400 mg total) by mouth daily. 180 capsule 9 06/25/20 gabapentin (NEURONTIN) 100 MG capsule Take by mouth. 0 06/25/20 20 hydrALAZINE (APRESOLINE) 50 MG tablet Take 100 mg by mouth 3 times a day. 06/25/20 20 insulin NPH and regular human (HUMULIN 70/30 U-100 KWIKPEN) 100 unit/mL (70-30) InPn Inject subcutaneously. 0 06/25/20 20 insulin NPH isoph U-100 human (HUMULIN N NPH INSULIN KWIKPEN) 100 unit/mL (3 mL) InPnIndications:S/P liver transplant (CMS-HCC),Hyperglyc emia Inject subcutaneously 20 units in the AM and 8 units in the PM. 15 mL 5 9 06/25/20 20 JANUVIA 100 mg tablet 0 06/25/20 20 lancets (ONETOUCH DELICA LANCETS) 33 gauge Misc Use 1 strip as directed 4 times daily before meals and at bedtime. 150 each 5 8 03/18/20 22 liraglutide (VICTOZA 2-GALI) 0.6 mg/0.1 mL (18 mg/3 mL) PnIj Inject 1.8 mg subcutaneously daily. 05/28/20 20 metoprolol succinate (TOPROL-XL) 100 MG 24 hr tablet Take 100 mg by mouth at bedtime. 0 06/25/20 20 mycophenolate (CELLCEPT) 250 mg [...] 6 hours as needed. 0 06/25/20 20 pen needle, diabetic 32 gauge x 5/32 Ndle Use as directed to inject insulin 4 times daily. 150 each 5 8 03/18/20 22 polyethylene glycol (MIRALAX) 17 gram packet Take 17 g by mouth 2 times a day as needed. 100 packet 9 06/25/20 20 proMETHazine (PHENERGAN) 25 MG tablet take 1 tablet by ORAL route every 6 hours as needed 9 06/25/20 valACYclovir (VALTREX) 1000 MG tablet Take 1,000 mg by mouth 3 times a day. 0 06/25/20 20 documented as of this encounter Plan of Treatment Upcoming Encounters Date Type Department Care Team (Late st Contact Info) Description 07/15/2024 9:00 AM EST Hospital Encounter [facility] Interventional Radiology [facility] [place] [address] [address] Herve Carrillo MD 3130 [facility] [address] [place] [address] documented as of this encounter Procedures Procedure Name Priority Date/Time Associated Diagnosis Comments [id number] W/WO BRONCHODILATOR Routine 01/27/2020 12:51 PM EDT Pre-op evaluation Morbid obesity (CMS-HCC) documented in this encounter Results * Spirometry with/without bronchodilator (01/27/2020 12:51 PM EDT) FEV1 3.14 [facility] FEV1% 82 [facility] FVC 4.41 [facility] FVC% 91 [facility] FEV1/FVC 71 [facility] FEV1/FVC EXP 79 [facility] RESPONSE TO BRONCHODILATOR 1% FVC, 1% FEV1 [facility] 01/27/2020 12:5 1 PM EDT Impressions [facility] - 01/27/2020 1:29 PM EDT [facility] PULMONARY FUNCTION LABORATORY Pulmonary Function Tests Interpretation Aiden Stauffer Jr. is a 44 y.o. male who had a pulmonary function test performed at the [facility]'s Pulmonary Function Laboratory. Spirometry is normal. There is no response to bronchodilator demonstrated. Read performed by: Lan Birch MD 01/27/2020 1:42 PM us Hung Trivedi MD PFT ORDERABLES Final Result [facility] [address] [facility] [place] [address] documented in this encounter Visit Diagnoses Diagnosis Pre-op evaluation Morbid obesity ([facility]) Morbid obesity documented in this encounter Additional Health Concerns Assessment Noted Time PHQ-9 Depression Total Score: 0 12/06/19 18 3:00 PM EDT documented as of this encounter Care Teams Tip Scourer Relationship Specialty Start Date End Date [place] [address] PCP - General 08/18/17 06/23/21 Maile Valles, RN Txp Post Coordinator Transplant Hepatology 11/07/17 Jack Ordoñez MD [address] [place] [address] Consulting Physician Transplant Hepatology 01/05/18 Estephania Sharif, PharmD Pharmacist Pharmacist 11/11/19 documented as of this encounter
--- OUTSIDE RECORDS SUMMARY | 2024-07-12 12:43 | XMS_ITS | Encounter Summary ---
Author Organization [facility] Address [address] [place] [address] Care Team Providers Care Upholstery Department Supervisor Name Role Phone Edgar Fournier MD Primary Care Provider [phone] Maile Valles RN Unavailable Unavail able Jack Ordoñez MD Unavailable [phone] Estephania Sharif PharmD Unavailable Christine vailable [...] release of HIV test results or diagnoses. [id number] Reason for Visit * Reason Comments Medication Access Services Encounter Details Date Type Department Care Team (Late st Contact Info) Description 03/12/2020 Pharmacy Services [facility] Specialty [facility] [address] [place] [address] Elmira Hussein I, LUICT Social History Tobacco Use Types Packs/Day Years [...] have Coronavirus / COVID-19? No / Unsure 03/11/2020 10:51 AM EDT documented as of this encounter Progress Notes * LUCI PalmaT - 03/12/2020 11:53 AM EDT MEDICATION ACCESS SERVICES Refill reordered for Gengraf from [facility]. Drug will be delivered to Medication Access Services in 7 - 10 business days. Elmira Hussein Medication Access Services phone fax documented in this encounter Plan of Treatment Upcoming Encounters Date Type Department Care Team (Late st Contact Info) Description 07/15/2024 9:00 AM EST Hospital Encounter [facility] Interventional Radiology [address] [place] [address] Herve Carrillo MD 3[address] [facility] 3[address] [place] [phone] documented as of this encounter Visit Diagnoses Not on filedocumented in this encounter Additional Health Concerns Assessment Noted Time PHQ-9 Depression Total Score: 0 12/06/19 18 3:00 PM EDT documented as of this encounter Care Teams Upholstery Department Supervisor Relationship Specialty Start Date End Date Edgar Fournier MD [address] [place] [address] [place] [address] PCP - General 08/18/17 06/23/21 Maile Valles, JANA Txp Post Coordinator Transplant Hepatology 11/07/17 Jack Ordoñez MD [address] [place] [address], [place] [phone] Consulting Physician Transplant Hepatology 01/05/18 Estephania Sharif, DarrianD Pharmacist Pharmacist 11/11/19 documented as of this encounter
--- OUTSIDE RECORDS SUMMARY | 2024-07-12 12:43 | XMS_ITS | Encounter Summary ---
Author Organization [facility] Address [address] [place] [address] Care Team Providers Care Eligibility Specialist Name Role Phone Edgar Fournier MD Primary Care Provider [phone] Maile Valles RN Unavailable Unavail able Jack Ordoñez MD Unavailable [phone] Estephania Sharif PharmD Unavailable Christine vailable [...] release of HIV test results or diagnoses. [id number] Reason for Visit * Reason Comments Nutrition Counseling Encounter Details Date Type Department Care Team (Late st Contact Info) Description 03/26/2020 Telephone [facility] Transplant Related Interdisciplinary Metabolic Surgery at [facility] Office [address] [facility] [address] [place] [address] Amrita Mcclellan, GEOVANNA 222 [facility] [address] [place] [address] Nutrition Counseling Social History Tobacco Use Types Packs/Day Years [...] encounter Miscellaneous Notes * Telephone Encounter - Amrita Mcclellan RD - 03/26/2020 12:[address], calling to confirm pt's pre-op diet protocol. Reviewed appropriate products, fluidgoals, and post-op diet progression. Additionally, she has recommended pt take phosphate binder with MR to maintain phosphorous levels. Will continue to coordinate care as needed post-op. documented in this encounter Plan of Treatment Upcoming Encounters Date Type Department Care Team (Late st Contact Info) Description 07/15/2024 9:00 AM EST Hospital Encounter [facility] Interventional Radiology [address] [place] [address] Herve [facility]illo MD [facility] [facility] [facility] [place] [address] documented as of this encounter Visit Diagnoses Not on filedocumented in this encounter Additional Health Concerns Assessment Noted Time PHQ-9 Depression Total Score: 0 12/06/19 18 3:00 PM EDT documented as of this encounter Care Teams Eligibility Specialist Relationship Specialty Start Date End Date Edgar Fournier MD Rufina Morelos [place] [phone] PCP - General 08/18/17 06/23/21 Maile Valles, RN Txp Post Coordinator Transplant Hepatology 11/07/17 Jack Ordoñez MD [address] [place] [address] Consulting Physician Transplant Hepatology 01/05/18 Estephania Sharif, PharmD Pharmacist Pharmacist 11/11/19 documented as of this encounter
--- OUTSIDE RECORDS SUMMARY | 2024-07-12 12:43 | XMS_ITS | Encounter Summary ---
Author Organization [facility] Address [address] [place] [address] Care Team Providers Care Name Plate Stamper Name Role Phone Edgar Fournier MD Primary Care Provider [phone] Maile Valles RN Unavailable Unavail able Jack Ordoñez MD Unavailable [phone] Estephania Sharif PharmD Unavailable Christine vailable [...] release of HIV test results or diagnoses. [id number] Health Encounter Details Date Type Department Care Team (Late st Contact Info) Description 01/24/2020 Orders Only [facility] Liver Transplant at [place] [id number] [facility] [address] [place] [address] Anne Whitt MA S/P liver transplant ([facility]-HCC); Encounter for therapeutic drug monitoring; Immunosuppression (CMS-HCC); Liver replaced by transplant ([facility]-HCC); Pharmacologic therapy; Transplanted liver ([facility]-HCC); Drug therapy Social History Tobacco Use Types Packs/Day Years [...] Description 07/15/2024 9:00 AM EST Hospital Encounter [facility] Interventional Radiology [address] [place] [phone] Herve Carrillo MD [address] [facility] [address] [place] [phone] documented as of this encounter Visit Diagnoses Diagnosis S/P liver transplant (CMS-HCC) Encounter for therapeutic drug monitoring Immunosuppression (CMS-HCC) Liver replaced by transplant (CMS-HCC) Liver replaced by transplant Pharmacologic therapy Encounter for other specified aftercare Transplanted liver (CMS-HCC) Liver replaced by transplant Drug therapy Encounter for other specified aftercare documented in this encounter Additional Health Concerns Assessment Noted Time PHQ-9 Depression Total Score: 0 12/06/19 18 3:00 PM EDT documented as of this encounter Care Teams Name Plate Stamper Relationship Specialty Start Date End Date Edgar Fournier MD [address] [place] [phone] PCP - General 08/18/17 06/23/21 Maile Valles, JANA Txp Post Coordinator Transplant Hepatology 11/07/17 Jack Ordoñez MD [address] [place] [phone] Consulting Physician Transplant Hepatology 01/05/18 Estephania Sharif, DarrianD Pharmacist Pharmacist 11/11/19 documented as of this encounter
--- OUTSIDE RECORDS SUMMARY | 2024-07-12 12:43 | XMS_ITS | Encounter Summary ---
Author Organization [facility] Address [facility] [place] [address] Care Team Providers Care Commercial Real Estate Manager Name Role Phone Edgar Fournier MD Primary Care Provider [phone] Maile Valles RN Unavailable Unavail able Jack Ordoñez MD Unavailable [phone] Estephania Sharif PharmD Unavailable Christine vailable [...] release of HIV test results or diagnoses. [id number] Reason for Visit * Reason Comments Labs Only Encounter Details Date Type Department Care Team (Late st Contact Info) Description 01/27/2020 4:35 PM EDT Specimen [facility] Outreach Lab [address] [place] [address] Jack Ordoñez MD [address] [place] [phone] S/P liver transplant (CMS-HCC); Encounter for therapeutic drug monitoring; Immunosuppression (CMS-HCC); Pre-op evaluation; Morbid obesity (CMS-HCC) Social History Tobacco Use Types Packs/Day [...] st Contact Info) Description 07/15/2024 9:00 AM [facility] Hospital Encounter [facility] Interventional Radiology [address] [place] [address] Herve Carrillo MD [address] [facility] Ed [address] [place] [address] documented as of this encounter Procedures Procedure Name Priority Date/Time Associated Diagnosis Comments RENAL FUNCTION PANEL W/EGFR Routine 01/27/2020 1:57 PM EDT S/P liver transplant (CMS-HCC) Encounter for therapeutic drug monitoring Immunosuppression (CMS-HCC) DIFFERENTIAL Routine 01/27/2020 1:57 PM EDT S/P liver transplant (CMS-HCC) Encounter for therapeutic drug monitoring Immunosuppression (CMS-HCC) CBC Routine 01/27/2020 1:57 PM EDT S/P liver transplant (CMS-HCC) Encounter for therapeutic drug monitoring Immunosuppression (CMS-HCC) TSH Routine 01/27/2020 1:57 PM EDT Pre-op evaluation Morbid obesity (CMS-HCC) HEMOGLOBIN A1C Routine 01/27/2020 1:57 PM EDT Pre-op evaluation Morbid obesity (CMS-HCC) LIPID PANEL Routine 01/27/2020 1:57 PM EDT Pre-op evaluation Morbid obesity (CMS-HCC) documented in this encounter Results * (ABNORMAL) Lipid Profile (01/27/2020 1:57 PM EDT) [facility] Cholesterol, Total 236(H) 0 - 200 mg/dL 01/27/2020 3:07 PM EDT [facility] Triglycerides 303(H) 10 - 149 mg/dL 01/27/2020 3:07 PM EDT [facility] HDL 32(L) 60 - 92 mg/dL 01/27/2020 3:07 PM EDT [facility] Comment: ?LIPID PROFILE [...] 9- to 12- hour fast. LDL Cholesterol 143 mg/dL 0 3:07 PM EDT [facility] Plasma specimen (specimen) 01/27/2020 1:57 PM EDT 01/27/2020 2:33 PM EDT Narrative [facility] - 01/27/2020 3:07 PM EDT Must the patient be fasting for this test?->No us Hung Trivedi MD LAB BLOOD ORDERABLES Final Resul t [facility] [address] [place] [address], [facility] * (ABNORMAL) Hemoglobin A1c (01/27/2020 1:57 PM EDT) Hemoglobin A1C 6.9(H) 4.0 - 5.6 % 01/27/2020 4:54 PM EDT [facility] Comment: Hemoglobin A1c Interpretation [...] individual patient considerations. Whole blood specimen (specimen) 01/27/2020 1:57 PM EDT 01/27/2020 2:27 PM EDT us Hung Trivedi MD LAB BLOOD ORDERABLES Final Resul t Performing Organization Address [facility] Co de Phone Number [facility] [address] * TSH (Thyroid Stimulating Hormone) (01/27/2020 1:57 PM EDT) TSH 3.59 0.45 - 4.12 uIU/mL 01/27/2020 3:18 PM EDT [facility] Serum specimen (specimen) 01/27/2020 1:57 PM EDT 01/27/2020 2:33 PM EDT us Hung Trivedi MD LAB BLOOD ORDERABLES Final Resul t Performing Organization Address [facility] de Phone Number [facility] [address] * (ABNORMAL) Renal Function Panel w/EGFR (01/27/2020 1:57 PM EDT) Sodium 138 133 - 146 mmol/L 01/27/2020 3:07 PM EDT [facility] Potassium 3.7 3.5 - 5.3 mmol/L 01/27/2020 3:07 PM EDT [facility] Chloride 100 98 - 110 mmol/L 01/27/2020 3:07 PM EDT [facility] CO2 26 21 - 33 mmol/L 01/27/2020 3:07 PM EDT [facility] Anion Gap 12 3 - 16 mmol/L 01/27/2020 3:07 PM EDT [facility] BUN 30(H) 7 - 25 mg/dL 01/27/2020 3:07 PM EDT [facility] Creatinine 6.23(H) 0.60 - 1.30 mg/dL 01/27/2020 3:07 PM EDT [facility] Glucose 92 70 - 100 mg/dL 01/27/2020 3:07 PM EDT [facility] Calcium 8.0(L) 8.6 - 10.3 mg/dL 01/27/2020 3:07 PM EDT [facility] Phosphorus 4.8(H) 2.1 - 4.7 mg/dL 01/27/2020 3:07 PM EDT [facility] Albumin 4.1 3.5 - 5.7 g/dL 01/27/2020 3:07 PM EDT [facility] Osmolality, Calculated 292 278 - 305 mOsm/kg 01/27/2020 3:07 PM EDT [facility] eGFR AA CKD-EPI 11 See note. 0 3:07 PM EDT [facility] Comment: As of 2015 the [...] equation to estimate glomerular filtration rate. ??Jennifer Heart Surgeon Med. 2009:150(9):604-12 eGFR NONAA CKD-EPI 10 See note. 2019 3:07 PM EDT [facility] Comment: As of 2015 the [...] equation to estimate glomerular filtration rate. ??Jenn[facility] Heart Surgeon Med. 2009:150(9):604-12 Plasma specimen (specimen) 01/27/2020 1:57 PM EDT 01/27/2020 2:33 PM EDT Narrative [facility] - 01/27/2020 3:07 PM EDT Standing Lab Frequency 1 Week to 4 Weeks, Frequency Varies With Need. Please Fax Results to [phone]. For Critical Results, Call [phone]. us Jack Ordoñez MD LAB BLOOD ORDERABLES Final Re sult [facility] [address] [place] [address], [facility] * (ABNORMAL) Differential (01/27/2020 1:57 PM EDT) Metamyelocytes Relative 1.0(H) 0.0 - 0.0 % 01/27/2020 3:47 PM EDT [facility] Bands Relative 1.0 0.0 - 9.0 % 01/27/2020 3:47 PM EDT [facility] Neutrophils Relative 61.4 40.0 - 80.0 % 01/27/2020 3:47 PM EDT [facility] Lymphocytes Relative 29.7 15.0 - 45.0 % 01/27/2020 3:47 PM EDT [facility] Atypical Lymphocytes Relative 1.0 0.0 - 9.0 % 01/27/2020 3:47 PM EDT [facility] Comment:Atypical lymphocyte( s)= reactive, benign, viral lymphocyte(s) Monocytes Relative 3.9 0.0 - 12.0 % 01/27/2020 3:47 PM EDT [facility] Eosinophils Relative 2.0 0.0 - 8.0 % 01/27/2020 3:47 PM EDT [facility] Basophils Relative 0.0 0.0 - 1.0 % 01/27/2020 3:47 PM EDT [facility] Neutrophils Absolute 3,009 1,500 - 7,800 /uL 01/27/2020 3:47 PM EDT [facility] Bands Absolute 49 0 - 750 /uL 01/27/2020 3:47 PM EDT [facility] Metamyelocytes Absolute 49(H) 0 - 0 /uL 01/27/2020 3:47 PM EDT [facility] Lymphocytes Absolute 1,504 850 - 3,900 /uL 01/27/2020 3:47 PM EDT [facility] Monocytes Absolute 191(L) 200 - 950 /uL 01/27/2020 3:47 PM EDT [facility] Eosinophils Absolute 98 15 - 500 /uL 01/27/2020 3:47 PM EDT [facility] Basophils Absolute 0 0 - 200 /uL 01/27/2020 3:47 PM EDT [facility] RBC Morphology Normal 01/27/2020 3:47 PM EDT [facility] PLT Morphology Platelet morphology appears normal 01/27/2020 3:47 PM EDT [facility] Whole blood specimen (specimen) 01/27/2020 1:57 PM EDT 01/27/2020 2:27 PM EDT Narrative [facility] - 01/27/2020 3:47 PM EDT Standing Lab Frequency 1 Week to 4 Weeks, Frequency Varies With Need. Please Fax Results to [phone]. For Critical Results, Call [phone]. us Jack Ordoñez MD LAB BLOOD ORDERABLES Final Re sult [facility] [address] [facility] [place] [address], [facility] * (ABNORMAL) CBC (01/27/2020 1:57 PM EDT) WBC 4.9 3.8 - 10.8 10E3/uL 01/27/2020 2:34 PM EDT [facility] RBC 2.82(L) 4.20 - 5.80 10E6/uL 01/27/2020 2:34 PM EDT [facility] Hemoglobin 8.9(L) 13.2 - 17.1 g/dL 01/27/2020 2:34 PM EDT [facility] Hematocrit 26.2(L) 38.5 - 50.0 % 01/27/2020 2:34 PM EDT [facility] MCV 93.1 80.0 - 100.0 fL 01/27/2020 2:34 PM EDT [facility] MCH 31.6 27.0 - 33.0 pg 01/27/2020 2:34 PM EDT [facility] MCHC 33.9 32.0 - 36.0 g/dL 01/27/2020 2:34 PM EDT [facility] RDW 14.0 11.0 - 15.0 % 01/27/2020 2:34 PM EDT [facility] Platelets 239 140 - 400 10E3/uL 01/27/2020 2:34 PM EDT [facility] MPV 7.2(L) 7.5 - 11.5 fL 01/27/2020 2:34 PM EDT [facility] Whole blood specimen (specimen) 01/27/2020 1:57 PM EDT 01/27/2020 2:27 PM EDT Narrative [facility] - 01/27/2020 2:34 PM EDT Standing Lab Frequency 1 Week to 4 Weeks, Frequency Varies With Need. Please Fax Results to [phone]. For Critical Results, Call [phone]. us Jack Ordoñez MD LAB BLOOD ORDERABLES Final Re sult [facility] [address] [facility]. [address] documented in this encounter Visit Diagnoses Diagnosis S/P liver transplant (CMS-HCC) Encounter for therapeutic drug monitoring Immunosuppression (CMS-HCC) Pre-op evaluation Morbid obesity (CMS-HCC) Morbid obesity documented in this encounter Additional Health Concerns Assessment Noted Time PHQ-9 Depression Total Score: 0 12/06/19 18 3:00 PM EDT documented as of this encounter Care Teams Commercial Real Estate Manager Relationship Specialty Start Date End Date Edgar Fournier MD [address] [place] [address] [place] [address] PCP - General 08/18/17 06/23/21 Maile Valles, RN Txp Post Coordinator Transplant Hepatology 11/07/17 Jack Ordoñez MD [address] [place] [address] Consulting Physician Transplant Hepatology 01/05/18 Estephania Sharif, DarrianD Pharmacist Pharmacist 11/11/19 documented as of this encounter
--- OUTSIDE RECORDS SUMMARY | 2024-07-12 12:43 | XMS_ITS | Encounter Summary ---
Author Organization [facility] Address [address] [place] [address] Care Team Providers Care Check Weigher Name Role Phone Edgar Fournier MD Primary Care Provider [phone] Maile Valles RN Unavailable Unavail able Jack Ordoñez MD Unavailable [phone] Estephania Sharif PharmD Unavailable Christine vailable [...] release of HIV test results or diagnoses. [id number] Reason for Visit * Reason Comments Nutrition Education Encounter Details Date Type Department Care Team (Late st Contact Info) Description 03/12/2020 Telephone [facility] Transplant Related Interdisciplinary Metabolic Surgery at [facility] Office [address] [facility] [address] [place] [address] Amrita Mcclellan, GEOVANNA [address] [facility] [address] [place] [address] Nutrition Education Social History Tobacco Use Types Packs/Day Years [...] Telephone Encounter - Amrita Mcclellan RD - 03/12/2020 9:30 AM EDT Called pt to follow up about questions from pre-op class yesterday. Spoke with pt's 3d modeler, Marilee, and determined that 1500 ml fluid restriction will remain in place throughout pre and post-op diet progression. Also informed pt that he should dialyze at home the night before surgery and he will receive HD in the hospital if needed the day after surgery. Pt verbalized understanding and has no further questions at this time. documented in this encounter Plan of Treatment Upcoming Encounters Date Type Department Care Team (Late st Contact Info) Description 07/15/2024 9:00 AM EST Hospital Encounter Interventional Radiology [address] [place] [address] Herve Carrillo MD [address] [facility] Ed [address] [place] [address] documented as of this encounter Visit Diagnoses Not on filedocumented in this encounter Additional Health Concerns Assessment Noted Time PHQ-9 Depression Total Score: 0 12/06/19 18 3:00 PM EDT documented as of this encounter Care Teams Check Weigher Relationship Specialty Start Date End Date Edgar Fournier MD [address] [place] [place] [phone] PCP - General 08/18/17 06/23/21 Maile Valles, RN Txp Post Coordinator Transplant Hepatology 11/07/17 Jack Ordoñez MD [address] [place] [address] Consulting Physician Transplant Hepatology 01/05/18 Estephania Sharif, PharmD Pharmacist Pharmacist 11/11/19 documented as of this encounter
--- OUTSIDE RECORDS SUMMARY | 2024-07-12 12:43 | XMS_ITS | Encounter Summary ---
Author Organization [facility] Address [address] [place] [address] Care Team Providers Care Intrusion Analyst Name Role Phone Edgar Fournier MD Primary Care Provider [phone] Maile Valles RN Unavailable Unavail able Jack Ordoñez MD Unavailable [phone] Estephania Sharif PharmD Unavailable Christine vailable [...] release of HIV test results or diagnoses. [id number] Reason for Visit * Reason Comments Pap Medication Refill Encounter Details Date Type Department Care Team (Late st Contact Info) Description 12/27/2019 Pharmacy Services [facility] [address] [place] [address] Elmira Hussein I, RXT Social History [...] have Coronavirus / COVID-19? No / Unsure 12/17/2019 12:36 PM EDT documented as of this encounter Progress Notes * MERARY Palma - 12/27/2019 9:56 AM EDT [facility] Refill reordered for [facility] from [facility] to [facility]. Drug will be delivered to [facility] on 01/01/2020. Elmira Hussein [facility] phone fax documented in this encounter Plan of Treatment Upcoming Encounters Date Type Department Care Team (Late st Contact Info) Description 07/15/2024 9:00 AM EST Hospital Encounter [facility] Interventional Radiology [address] [place] [phone] Herve Carrillo MD [address] [facility] [address] [place] [phone] documented as of this encounter Visit Diagnoses Not on filedocumented in this encounter Additional Health Concerns Assessment Noted Time PHQ-9 Depression Total Score: 0 12/06/19 18 3:00 PM EDT documented as of this encounter Care Teams Intrusion Analyst Relationship Specialty Start Date End Date Edgar Fournier MD [address] [place] [address] [place] [address] PCP - General 08/18/17 06/23/21 Maile Valles, JANA Txp Post Coordinator Transplant Hepatology 11/07/17 Jack Ordoñez MD [address] [place] [phone] Consulting Physician Transplant Hepatology 01/05/18 Estephania Sharif, PharmD Pharmacist Pharmacist 11/11/19 documented as of this encounter
--- OUTSIDE RECORDS SUMMARY | 2024-07-12 12:43 | XMS_ITS | Encounter Summary ---
Author Organization [facility] Address [address] [place] [address] Care Team Providers Care Vehicle Upholsterer Name Role Phone Edgar Fournier MD Primary Care Provider [phone] Maile Valles RN Unavailable Unavail able Jack Ordoñez MD Unavailable [phone] Estephania Sharif PharmD Unavailable Christine vailable [...] release of HIV test results or diagnoses. [id number] Encounter Details Date Type Department Care Team (Latest Contact Info) Description 03/16/2020 Travel Social History Tobacco Use Types Packs/Day [...] [facility] Interventional Radiology [address] [place] [phone] Herve Carrillo MD [address] [facility] Ed [address] Surgery [place] [phone] documented as of this encounter Visit Diagnoses Not on filedocumented in this encounter Additional Health Concerns Assessment Noted Time PHQ-9 Depression Total Score: 0 12/06/19 18 3:00 PM EDT documented as of this encounter Care Teams Vehicle Upholsterer Relationship Specialty Start Date End Date Edgar Fournier MD [address] [place] [address] [place] [address] PCP - General 08/18/17 06/23/21 Maile Valles, JANA Txp Post Coordinator Transplant Hepatology 11/07/17 Jack Ordoñez MD [address] [place] [phone] Consulting Physician Transplant Hepatology 01/05/18 Estephania Sharif, DarrianD Pharmacist Pharmacist 11/11/19 documented as of this encounter
--- OUTSIDE RECORDS SUMMARY | 2024-07-12 12:43 | XMS_ITS | Encounter Summary ---
Author Organization [facility] Address [address] [place] [address] Care Team Providers Care Metals Analyst Name Role Phone Edgar Fournier MD Primary Care Provider [phone] Maile Valles RN Unavailable Unavail able Jack Ordoñez MD Unavailable [phone] Estephania Sharif PharmD Unavailable Christine vailable [...] release of HIV test results or diagnoses. [id number] Reason for Visit * Reason Comments Medication Refill Encounter Details Date Type Department Care Team (Late st Contact Info) Description 03/09/2020 Refill [facility] Liver Transplant at [facility] [address] [facility] [address] [place] [address] Jack Ordoñez MD [address] [place] [address] Social History Tobacco [...] [facility] Interventional Radiology [address] [place] [phone] Herve Carrillo MD [address] [facility] [address] [place] [phone] documented as of this encounter Visit Diagnoses Not on filedocumented in this encounter Additional Health Concerns Assessment Noted Time PHQ-9 Depression Total Score: 0 12/06/19 18 3:00 PM EDT documented as of this encounter Care Teams Metals Analyst Relationship Specialty Start Date End Date Edgar Fournier MD [address] [place] [address] [place] [address] PCP - General 08/18/17 06/23/21 Maile Valles, JANA Txp Post Coordinator Transplant Hepatology 11/07/17 Jack Ordoñez MD [address] [place] [phone] Consulting Physician Transplant Hepatology 01/05/18 Estephania Sharif, DarrianD Pharmacist Pharmacist 11/11/19 documented as of this encounter
--- OUTSIDE RECORDS SUMMARY | 2024-07-12 12:43 | XMS_ITS | Encounter Summary ---
Author Organization [facility] Address [address] [place] [address] Care Team Providers Care Battery Charger Tester Name Role Phone Edgar Fournier MD Primary Care Provider [phone] Maile Valles RN Unavailable Unavail able Jack Ordoñez MD Unavailable [phone] Estephania Sharif PharmD Unavailable Christine vailable [...] release of HIV test results or diagnoses. [id number] Reason for Visit * Reason Comments Nutrition Education Encounter Details Date Type Department Care Team (Latest Contact Info) Description 03/11/2020 11:30 AM EDT Office Visit [facility] Transplant Related Interdisciplinary Metabolic Surgery at [facility] [address] [facility] [address] [place] [address] Hung Trivedi MD [address] [place] [address] Amrita Mcclellan, GEOVANAN [address] [phone] Morbid obesity with BMI of 40.0-44.9, adult ([facility] Type 2 diabetes 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, with long-term current use of insulin ([facility] [place]); Gastroesophageal reflux disease, esophagitis presence not specified; Essential hypertension; Pre-op evaluation Social History Tobacco Use Types Packs/Day Years [...] Sign Reading Time Taken Comments Blood Pressure 160/92 03/11/2020 11:08 AM EDT Pulse - - Temperature - - Respiratory Rate - - Oxygen Saturation - - Inhaled Oxygen Concentration - - Weight 126 kg (277 lb 12.8 oz) 03/11/2020 11:08 AM EDT Height 170.2 cm (5' 7 ) 03/11/2020 11:08 AM EDT Body Mass Index 43.51 03/11/2020 11:08 AM EDT documented in this encounter Progress Notes * Amrita Mcclellan RD - 03/11/2020 11:30 AM EDT Referring Provider: Hung Trivedi MD Today's Weight: 277.8 lbs Wt Readings from Last 3 Encounters: 03/11/20 (!) 277 lb 12.8 oz (126 kg) 03/11/20 (!) 277 lb 12.8 oz (126 kg) 02/13/20 (!) 277 lb 12.8 oz (126 kg) Aiden Stauffer Jr. attended nutrition class for Sleeve. Reviewed pre & post-op nutrition guidelines and texture progression in detail. Discussed importance of adequate intake of protein, fluids, and taking recommended vitamin & mineral supplements every day. Reviewed behavior modification principles of taking small bites, chewing thoroughly, avoiding carbonation, and having liquids between meals rather than with meals. Reviewed basics of good nutrition & healthy meal planning- encouraged small, frequent meals based around nutrient dense foods, such as protein & plants.Patient has been provided sample meal plans for both pre-surgery diet as well as for each stage of texture progression post-op. Patient understands that making healthy food choices and being physically active are lifestyle changes that must be permanent for long-term weight management. Handouts provided: class slides/outline,sample grocery list, guidelines for purchasing a high quality meal replacement drink, timeline for post-op texture progression and associated sample meal plans, list of post-op vitamin/mineral supplementation protocol, as well as tracking forms and goal sheets. In addition to nutrition information, a pre-op packet including information for preparation for surgery and post-op recovery protocol was provided and reviewed. Patient verbalized understanding of material. Encouraged to call with any further questions. Hung Trivedi MD was available during appointment today, which is in compliance with patients surgical program protocol and plan of care. Appointment began at: 11:45 AM and ended at: 12:36 therefore a total of 51 minutes was spent with the patient today in a 1:1 setting. documented in this encounter Plan of Treatment Upcoming Encounters Date Type Department Care Team (Late st Contact Info) Description 07/15/2024 9:00 AM EST Hospital Encounter [facility] Interventional Radiology [address] [place] [phone] Herve Carrillo MD [address] [facility] [address] [place] [address] documented as of this encounter Visit Diagnoses Diagnosis Morbid obesity with BMI of 40.0-44.9, adult ([facility]) Type 2 diabetes 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, with long-term current use of insulin ([facility]) Gastroesophageal reflux disease, esophagitis presence not specified Essential hypertension Unspecified essential hypertension Pre-op evaluation documented in this encounter Additional Health Concerns Assessment Noted Time PHQ-9 Depression Total Score: 0 12/06/19 18 3:00 PM EDT documented as of this encounter Care Teams Battery Charger Tester Relationship Specialty Start Date End Date Edgar Fournier MD [address] [place] [address] [place] [address] PCP - General 08/18/17 06/23/21 Maile Valles, RN Txp Post Coordinator Transplant Hepatology 11/07/17 Jack Ordoñez MD [address] [place] [phone] Consulting Physician Transplant Hepatology 01/05/18 Estephania Sharif, Wilbert Pharmacist Pharmacist 11/11/19 documented as of this encounter
--- OUTSIDE RECORDS SUMMARY | 2024-07-12 12:43 | XMS_ITS | Encounter Summary ---
Author Organization [facility] Address [address] [place] [address] Care Team Providers Care Tunneling Machine Operator Name Role Phone Edgar Fournier MD Primary Care Provider [phone] Maile Valles RN Unavailable Unavail able Jack Ordoñez MD Unavailable [phone] Estephania Sharif PharmD Unavailable Christine vailable [...] release of HIV test results or diagnoses. [id number] Health Encounter Details Date Type Department Care Team (Latest Contact Info) Description 02/13/2020 9:00 AM EDT Office Visit [facility] Transplant Related Interdisciplinary Metabolic Surgery at [facility] Office [address] [facility] [address] [place], [place] [id number] Varghese Shipley MD [address] [place] [address] Surgery [place], [place] [address] Amrita Mcclellan, GEOVANNA [address] [address] Morbid obesity with BMI of 40.0-44.9, adult ([facility] Type 2 diabetes 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, with long-term current use of insulin ([facility]); Gastroesophageal reflux disease, esophagitis presence not specified; Acute renal failure superimposed on chronic kidney disease, on chronic dialysis, unspecified acute renal failure type ([facility] [place] [facility]); CKD (chronic kidney disease) stage 3, GFR 30-59 ml/min ([facility] [place] [facility]) Social History Tobacco Use Types Packs/Day Years [...] Weight 126 kg (277 lb 12.8 oz) 02/13/2020 9:13 AM EDT pt reported on home scale this morning Height - - Body Mass Index 43.51 10/04/2019 7:00 AM EST documented in this encounter Progress Notes * Amrita Mcclellan RD - 02/13/2020 9:00 AM EDT NUTRITION CONSULTATION Reason for Visit: Nutrition Consultation for Weight Loss Surgery Referring Provider: Hung Trivedi MD Today's Weight: 277.8 lbs pt reported on home sclae Ht Readings from Last 1 Encounters: 10/04/19 5' 7 (1.702 m) Wt Readings from Last 5 Encounters: 10/04/19 (!) 278 lb (126.1 kg) 09/19/19 (!) 278 lb 12.8 oz (126.5 kg) 07/30/19 (!) 284 lb 8 oz (129 kg) 07/24/19 (!) 290 lb (131.5 kg) 07/01/19 (!) 292 lb 14.4 oz (132.9 kg) ASSESSMENT: Aiden Stauffer Jr. present in clinic for nutrition assessment and counseling. Planning to move forward with Sleeve. Reviewed diet recall. Reviewed duarte habits for success after weight loss surgery as listed below and Supervised Weight Loss Diet Plan. Discussed strategies to better meet these goals. Pt reports his goal dry weight is 120 kg, but often struggles with cramping if under 126 kg. Previous Weight Loss Attempts: various resective diet plans and exercise - calorie counting, Motivation for Weight Loss Surgery: kidney transplant, keep liver healthy Diet recall: Wake 4 AM Breakfast: Banana/fruit OR HB egg Snack: 9 AM: PB crackers Lunch: 12 PM: / rack Ribs w/ light sauce + macaroni salad w/ creamy dressing Snack: none OR Dinner: 6 PM: beer onion rings - did not feel hungry OR Ribeye + salad + green beans or corn Snack: 8 PM: Melon or grapes Fluids: follows 1500 ml restriction - mainly water + propel for cramps Will Drink Boost GC if he needs a supplement Estimated Energy Needs per [facility]: (9.99 x 126.1 kg) + (6.25 x 170.2 cm) - (4.92 x 45 years) +5 = 2108 kcal Food allergies/intolerances: none Dietary Supplements taken: none - iron infusion Diet Restrictions: 1500 ml fluid, 2 gram sodium, No added salt, No concentrated sweets Dialysis: HD at home 5-6X/week Physical Activity: fatigued d/t low iron and hemoglobin Medications: Current Outpatient Medications Medication Sig ??? aspirin Chew 1 tablet (81 mg total) by mouth daily with breakfast. ??? blood sugar diagnostic Use to test blood sugar up to 4 times a day. Diagnosis for use: E 9.65. For use with One Touch Verio meters. ??? blood-glucose meter Use as instructed. ??? carBAMazepine Take 200 mg by mouth at bedtime. ??? carvediloL Take 2 tablets (50 mg total) by mouth 2 times a day with meals. ??? cloNIDine HCL Take 1 tablet (0.1 mg total) by mouth 2 times a day. (Patient taking differently:Take 0.1 mg by mouth 3 times a day. ) ??? cycloSPORINE modified Take 2 capsules (50 mg total) by mouth 2 times a day. ??? doxazosin 8 mg 2 times a day. ??? entecavir Take 1 tablet (0.5 mg total) by mouth every 7 days. ??? ergocalciferol Take 50,000 Units by mouth once a week. ??? famotidine Take 20 mg by mouth daily. ??? gabapentin Take 4 capsules (400 mg total) by mouth daily. ??? hydrALAZINE Take 50 mg by mouth 2 times a day. ??? insulin NPH isoph U-100 human Inject subcutaneously 20 units in the AM and 8 units in the PM. (Patient taking differently: Inject subcutaneously 48 units in the AM and 24 units in the PM. ) ??? lancets Use 1 strip as directed 4 times daily before meals and at bedtime. ??? liraglutide Inject 1.8 mg subcutaneously daily. ??? mycophenolate Take 1 capsule (250 mg total) by mouth 2 times a day. ??? NIFEdipine Take 90 mg by mouth 2 times a day. ??? ondansetron every 8 hours as needed. ??? pen needle, diabetic Use as directed to inject insulin 4 times daily. ??? polyethylene glycol Take 17 g by mouth 2 times a day as needed. No current facility-administered medications for this visit. Past Medical History: Past Medical History: Diagnosis Date ??? Acute pancreatitis ??? Ascites ??? Diabetes mellitus (CMS Dx) ??? Esophageal varices with bleeding (CMS Dx) ??? GERD (gastroesophageal reflux disease) ??? Hepatic encephalopathy (CMS Dx) ??? Hypertension ??? 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 Vitamin D deficiency NUTRITION DIAGNOSIS: Intake: Excessive energy intake Clinical: Obesity Class 3 (40.00 - and above) BMI Behavioral: Disordered eating pattern, Undesirable food choices and Physical inactivity NUTRITION INTERVENTIONS Education provided: Pt reviewed handouts from Eval appointment PATIENT GOALS - Eat 4-5 small meals per day approximately 3-4 hours apart - Include a protein and plant with all meals and snacks - Drink 64 oz of water & Eliminate all drinks containing carbonation, sugar and caffeine - Avoid breaded, high fat, and fast foods - Start tracking intakes with [employer] norman or with a Written Record - Increase planned activity and exercise as tolerated MONITORING & EVALUATION: Plan for follow up: Follow up in 1 month per program protocol and as needed. Recommendations for progression to surgery: No contraindications to surgery from nutrition standpoint, advance to surgery as directed by the multidisciplinary weight loss team. Appointment started at 8:56 AM and ended at 9:11 AM. Spent 15 total minutes with pt today for nutrition education and counseling related to the following health issues: morbid obesity. Hung Trivedi MD was available during appointment today, which is in compliance with patients surgical program protocol and plan of care. This was a phone conversation in lieu of an in-person visit. The patient provided verbal consent for an over the phone visit. I spent 15 to 19 minutes on this call conducting an interview, performing a limited exam by phone, and educating the patient on my assessment and plan. documented in this encounter Plan of Treatment Upcoming Encounters Date Type Department Care Team (Late st Contact Info) Description 07/15/2024 9:00 AM [facility] Hospital Encounter [facility] Interventional Radiology [address] [place] [address] Herve Carrillo MD [address] [facility] [address] [place] [address] documented as of this encounter Visit Diagnoses Diagnosis Morbid obesity with BMI of 40.0-44.9, adult ([facility]) Type 2 diabetes 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, with long-term current use of insulin ([facility]) Gastroesophageal reflux disease, esophagitis presence not specified Acute renal failure superimposed on chronic kidney disease, on chronic dialysis, unspecified acute renal failure type ([facility]) CKD (chronic kidney disease) stage 3, GFR 30-59 ml/min ([facility]) Chronic kidney disease, Stage III (moderate) documented in this encounter Additional Health Concerns Assessment Noted Time PHQ-9 Depression Total Score: 0 12/06/19 18 3:00 PM EDT documented as of this encounter Care Teams Tunneling Machine Operator Relationship Specialty Start Date End Date Edgar Fournier MD [address] [place] [address] [place] [address] PCP - General 08/18/17 06/23/21 Maile Valles, RN Txp Post Coordinator Transplant Hepatology 11/07/17 Jack Ordoñez MD [address] [place] [phone] Consulting Physician Transplant Hepatology 01/05/18 Estephania Sharif, DarrianD Pharmacist Pharmacist 11/11/19 documented as of this encounter
--- OUTSIDE RECORDS SUMMARY | 2024-07-12 12:43 | XMS_ITS | Encounter Summary ---
Author Organization [facility] Address [address] [place] [address] Care Team Providers Care Furnace Operator Name Role Phone Edgar Fournier MD Primary Care Provider [phone] Maile Valles RN Unavailable Unavail able Jack Ordoñez MD Unavailable [phone] Estephania Sharif PharmD Unavailable Christine vailable [...] release of HIV test results or diagnoses. [id number] Health Encounter Details Date Type Department Care Team (Latest Contact Info) Description 12/27/2019 Orders Only [facility] Transplant Related Interdisciplinary Metabolic Surgery at [facility] 222 [facility] [address] [place] [address] Hung Trivedi MD [address] [place] [address] Obesity, Class III, BMI 40-49.9 (morbid obesity) (CMS-HCC) (Primary Dx); Diabetes mellitus type 2 in obese (CMS-HCC) (CMS-HCC) Social History Tobacco Use Types Packs/Day [...] Hospital Encounter [facility] Interventional Radiology [address] [place] [phone] Herve Carrillo MD [address] [facility] [address] [place] [phone] documented as of this encounter Visit Diagnoses Diagnosis Obesity, Class III, BMI 40-49.9 (morbid obesity) (CMS-HCC)- Primary Diabetes mellitus type 2 in obese (CMS-HCC) Type II or unspecified type diabetes mellitus without mention of complication, not stated as uncontrolled documented in this encounter Additional Health Concerns Assessment Noted Time PHQ-9 Depression Total Score: 0 12/06/19 18 3:00 PM EDT documented as of this encounter Care Teams Furnace Operator Relationship Specialty Start Date End Date Edgar Fournier MD [address] [place] [address] [place] [address] PCP - General 08/18/17 06/23/21 Maile Valles, JANA Txp Post Coordinator Transplant Hepatology 11/07/17 Jack Ordoñez MD [facility] [place] [address] Consulting Physician Transplant Hepatology 01/05/18 Estephania Sharif, PharmD Pharmacist Pharmacist 11/11/19 documented as of this encounter
--- OUTSIDE RECORDS SUMMARY | 2024-07-12 12:43 | XMS_ITS | Encounter Summary ---
Author Organization [facility] Address [address] [place] [address] Care Team Providers Care Senior Physician Name Role Phone Edgar Fournier MD Primary Care Provider [phone] Maile Valles RN Unavailable Unavail able Jack Ordoñez MD Unavailable [phone] Estephania Sharif PharmD Unavailable Christine vailable [...] release of HIV test results or diagnoses. [id number] Reason for Visit * Reason Comments Pre-op Exam Encounter Details Date Type Department Care Team (Latest Contact Info) Description 03/11/2020 11:00 AM EDT Office Visit [facility] Transplant Related Interdisciplinary Metabolic Surgery at [facility] [address] [facility] [address] [place] [address] Hung Trivedi MD [address] [place] [address] Morbid obesity (CMS-HCC) (Primary Dx) Social History Tobacco Use [...] Time Taken Comments Blood Pressure 160/92 03/11/2020 11:06 AM EDT Pulse - - Temperature - - Respiratory Rate - - Oxygen Saturation - - Inhaled Oxygen Concentration - - Weight 126 kg (277 lb 12.8 oz) 03/11/2020 11:06 AM EDT Height 170.2 cm (5' 7 ) 03/11/2020 11:06 AM EDT Body Mass Index 43.51 03/11/2020 11:06 AM EDT documented in this encounter Progress Notes * Hung Trivedi MD - 03/11/2020 11:00 AM EDT Patient: Aiden Stauffer Jr. Age: 45 y.o. Reason for Visit: pre-op for sleeve gastrectomy A 45 y.o. male who who presents for pre-operative discussion prior to sleeve gastrectomy. He has had no change in health status since his last visit. He is scheduled to see anesthesia prior to his surgery also. Review of Systems Constitutional: Negative for activity change, chills, diaphoresis, fatigue and fever. HENT: Negative Eyes: Negative. Respiratory: Negative for cough, chest tightness, shortness of breath and wheezing. Cardiovascular: Negative for chest pain. Gastrointestinal: Negative for abdominal distention, abdominal pain, blood in stool, nausea and vomiting Endocrine: Negative. Genitourinary: Negative. Musculoskeletal: Negative. Skin: Negative. Allergic/Immunologic: Negative. Neurological: Negative for light-headedness and headaches. Hematological: Negative. Psychiatric/Behavioral: Negative. Vital Signs: BP Readings from Last 3 Encounters: 03/11/20 (!) 160/92 03/11/20 (!) 160/92 09/19/19 (!) 174/94 Wt Readings from Last 3 Encounters: 03/11/20 (!) 277 lb 12.8 oz (126 kg) 03/11/20 (!) 277 lb 12.8 oz (126 kg) 02/13/20 (!) 277 lb 12.8 oz (126 kg) BMI: Estimated body mass index is 43.51 kg/m?? as calculated from the following: Height as of this encounter: 5' 7 (1.702 m). Weight as of this encounter: 277 lb 12.8 oz (126 kg). BSA: Estimated body surface area is 2.44 meters squared as calculated from the following: Height as of this encounter: 5' 7 (1.702 m). Weight as of this encounter: 277 lb 12.8 oz (126 kg). Vitals: 03/11/20 1106 BP: (!) 160/92 Weight: (!) 277 lb 12.8 oz (126 kg) Height: 5' 7 (1.702 m) Past Medical History: Diagnosis Date ??? Acute pancreatitis ??? Ascites ??? Diabetes mellitus (CMS Dx) ??? Esophageal varices with bleeding (CMS Dx) ??? GERD (gastroesophageal reflux disease) ??? Hepatic encephalopathy (CMS Dx) ??? Hypertension ??? 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 Vitamin D deficiency Past [...] Relation Age of Onset ??? Diabetes Sister Social History Socioeconomic History ??? Marital status: [...] file Gets together: Not on file Attends yazdanism service: Not on file Active member of [...] Social History Narrative ??? Not on file Physical Exam: General: no apparent distress, conversant Eyes: anicteric sclera, moist conjunctiva, pupils equal and round reactive to light HENT: atraumatic mucous membranes moist Neck: trachea midline, full range of motion, no thyromegaly or adenopathy Cardiac: regular rate and rhythm, no murmurs, rubs, and gallops Respiratory: clear to auscultation bilaterally, normal respiratory effort Gastrointestinal: abdomen is soft nontender, nondistended, no palpable masses Extremity: warm, no clubbing, cyanosis, or edema Lymph: no palpable lymphadenopathy Skin: no rashes or ulcers, normal temperature and turgor Psych: appropriate affect, alert and oriented to person, place, and time Labs: Lab name 07/19/19 2415 01/27/20 1357 HEMOGLOBIN 7.4* < > 8.9* HEMATOCRIT 23.0* < > 26.2* MEAN CORPUSCULAR VOLUME 84.3 < > 93.1 PLATELETS 149 < > 239 SODIUM 134 < > 138 POTASSIUM 5.4* < > 3.7 CHLORIDE 101 < > 100 CO2 19* < > 26 BUN 58* < > 30* CREATININE 7.45* < > 6.23* GLUCOSE 270* < > 92 PHOSPHORUS 4.9* < > 4.8* ALBUMIN 3.3* 3.3* < > 4.3 4.1 CALCIUM 7.3* < > 8.0* AST 12* < > 14 ALT 6* < > 14 BILIRUBIN TOTAL 0.3 < > 0.4 ALK PHOS 98 < > 113 INR 1.1 -- -- < > = values in this interval not displayed. Lab name 07/01/19 0339 07/20/19 0628 07/22/19 0616 07/23/19 0414 TACROLIMUS BLOOD <2.0* 2.2* <2.0* 3.2* Assessment/Plan: A 45 y.o. male ASSESSMENT: Patient has completed required medical clearance prior to today's visit. Patient has been cleared by insurance to proceed with bariatric surgery. Pre-operative diet and instructions reviewed with patient per pumping station supervisor. I discussed the risks/complications/procedure with the patient and her/his family members. We specifically discussed the risk of laparoscopic surgery and the 2% risk of leak of at the gastric staple line. The following portions of the patient's history were reviewed and updated as appropriate: allergies, current medications, past medical history and past surgical history. I agree with the review of systems as documented above. PLAN: Proceed with anesthesia clearance and planned sleeve gastrectomy. Hung Trivedi MD top stitcher [facility] 03/11/2020 2:04 PM documented in this encounter Plan of Treatment Upcoming Encounters Date Type Department Care Team (Late st Contact Info) Description 07/15/2024 9:00 AM EST Hospital Encounter [facility] Interventional Radiology [address] [place] [phone] Herve Carrillo MD [address] [facility] [address] [place] [phone] documented as of this encounter Visit Diagnoses Diagnosis Morbid obesity (CMS-HCC)- Primary Morbid obesity documented in this encounter Additional Health Concerns Assessment Noted Time PHQ-9 Depression Total Score: 0 12/06/19 18 3:00 PM EDT documented as of this encounter Care Teams Senior Physician Relationship Specialty Start Date End Date Edgar Fournier MD [address] [place] [address] [place] [address] PCP - General 08/18/17 06/23/21 Maile Valles, JANA Txp Post Coordinator Transplant Hepatology 11/07/17 Jack Ordoñez MD [address] [place] [phone] Consulting Physician Transplant Hepatology 01/05/18 Estephania Sharif, DarrianD Pharmacist Pharmacist 11/11/19 documented as of this encounter
--- OUTSIDE RECORDS SUMMARY | 2024-07-12 12:43 | XMS_ITS | Encounter Summary ---
Author Organization [facility] Address [address] [place] [address] Care Team Providers Care Houseman Name Role Phone Edgar Fournier MD Primary Care Provider [phone] Maile Valles RN Unavailable Unavail able Jack Ordoñez MD Unavailable [phone] Estephania Sharif PharmD Unavailable Christine vailable [...] release of HIV test results or diagnoses. [id number] Reason for Visit * Reason Comments Medication Refill Encounter Details Date Type Department Care Team (Late st Contact Info) Description 03/09/2020 Refill [facility] Liver Transplant at [facility] [address] [facility] [address] [place] [address] Jack Ordoñez MD [address] [place] [address] Social History Tobacco Use Types [...] Encounter [facility] Interventional Radiology [address] [place] [address] Herve Carrillo MD 3130 [facility] 3200 Surgery [place] [phone] documented as of this encounter Visit Diagnoses Not on filedocumented in this encounter Additional Health Concerns Assessment Noted Time PHQ-9 Depression Total Score: 0 12/06/19 18 3:00 PM EDT documented as of this encounter Care Teams Houseman Relationship Specialty Start Date End Date Edgar Fournier MD [address] [place] [address] [place] [address] PCP - General 08/18/17 06/23/21 Maile Valles, JANA Txp Post Coordinator Transplant Hepatology 11/07/17 Jack Ordoñez MD [address] [place] [phone] Consulting Physician Transplant Hepatology 01/05/18 Estephania Sharif, DarrianD Pharmacist Pharmacist 11/11/19 documented as of this encounter
--- OUTSIDE RECORDS SUMMARY | 2024-07-12 12:43 | XMS_ITS | Encounter Summary ---
Author Organization [facility] Address [address] [place] [address] Care Team Providers Care Bottle Caser Name Role Phone Edgar Fournier MD Primary Care Provider [phone] Maile Valles RN Unavailable Unavail able Jack Ordoñez MD Unavailable [phone] Estephania Sharif PharmD Unavailable Christine vailable [...] release of HIV test results or diagnoses. [id number] Health Encounter Details Date Type Department Care Team (Late st Contact Info) Description 02/13/2020 Orders Only [facility] Liver Transplant at [facility] [address] [facility] [address] [place] [address] Anne Whitt MA Liver replaced by transplant ([facility]) (Primary Dx); Encounter for therapeutic drug [...] Hospital Encounter [facility] Interventional Radiology [address] [place] [phone] Herve Carrillo MD [address] [facility] 3200 [place] [phone] documented as of this encounter Visit Diagnoses Diagnosis Liver replaced by transplant (CMS-HCC)- Primary Liver replaced by transplant Encounter for therapeutic drug monitoring documented in this encounter Additional Health Concerns Assessment Noted Time PHQ-9 Depression Total Score: 0 12/06/19 18 3:00 PM EDT documented as of this encounter Care Teams Bottle Caser Relationship Specialty Start Date End Date Edgar Fournier MD [address] [place] [address] PCP - General 08/18/17 06/23/21 Maile Valles, RN Txp Post Coordinator Transplant Hepatology 11/07/17 Jack Ordoñez MD [address] [place] [phone] Consulting Physician Transplant Hepatology 01/05/18 Estephania Sharif, DarrianD Pharmacist Pharmacist 11/11/19 documented as of this encounter
--- OUTSIDE RECORDS SUMMARY | 2024-07-12 12:43 | XMS_ITS | Encounter Summary ---
Author Organization [facility] Address [address] [place] [address] Care Team Providers Care Lieutenant Governor Name Role Phone Edgar Fournier MD Primary Care Provider [phone] Maile Valles RN Unavailable Unavail able Jack Ordoñez MD Unavailable [phone] Estephania Sharif PharmD Unavailable Christine vailable [...] release of HIV test results or diagnoses. [id number] Reason for Visit * Reason Comments Medical Management Encounter Details Date Type Department Care Team (Late st Contact Info) Description 03/19/2020 Telephone [facility] Cardiology at [facility] [address] [address] Marcelino Haynes Jr., MD [address] [facility] [place] [address] Medical Management Social History Tobacco Use Types [...] Miscellaneous Notes * Telephone Encounter - Lyly Lazo RN - 03/20/2020 1:23 PM EDT Noted, patient updated on cardiac risk assessment. * Telephone Encounter - Lyly Lazo RN - 03/20/2020 1:20 PM EDT Images from the original note were not included. Per message received: MD Marcelino Larose Jr., MD; Sujata Padgett NP; Lyly Lazo RN ?? Thank you. No specific concern. ??We needed an up to date evaluation of his pulmonary HTN. ??This will sufficeand we will clear him to proceed with gastric sleeve. Juvencio Johnson M.D. Solar Installation Manager Anesthesiology and Critical Care Medicine * Telephone Encounter - Lyly Lazo RN - 03/20/2020 10:45 AM EDT Received incoming call from Dr. Haynes. to review patient chart. Will follow up. * Telephone Encounter - Lyly Lazo RN - 03/20/2020 9:42 AM EDT Spoke with RAMON Padgett regarding patient mention of need for additional testing prior to pending procedure. VALERIA Padgett states anesthesiologist advised patient of possible need for additional testing sueto elevation in PA pressures as seen on most recent echo from 07/2019. Advised VALERIA Padgett of Dr. Haynes recomendations regarding referral to Pulmonology. Will discuss with Dr. Haynes and await completion of 03/16/20 office notes. * Telephone Encounter - Lyly Lazo RN - 03/20/2020 9:36 AM EDT Returned call to patient regarding message. Patient states that possible need for additional testing was mentioned during pre- anesthesia consult on 03/12/20. Tests specifically mentioned were echo and heart cath, due to elevated pressures. Reviewed patient chart- will reach out to RAMON Padgett for further information regarding patient questions. Will reach out to Dr. Haynes for completion of note. Advised patient that per follow up from 03/16/[address] Haynes- follow up at the [facility] in 6 months, referral to pulmonology, patient is lowto intermediate risk for surgery from a cardiac standpoint. Will return call to patient with update on POC when available. Patient verbalized understanding. * Telephone Encounter - Roberta Carter - 03/19/2020 3:54 PM EDT Unable to LVM due to number being disconnected. * Telephone Encounter - Lyly Lazo RN - 03/19/2020 3:53 PM EDT Attempted to return call to patient, no answer, unable to leave message. * Telephone Encounter - Lilo Quan MA - 03/19/2020 11:40 AM EDT Patient is calling to confirm rather or not he should have the Echocardiogram and Heart Cath prior to Weight Loss Surgery. Patient contact, (home) Patient has given verbal consent to leave a detailed message on voicemail if unavailable. documented in this encounter Plan of Treatment Upcoming Encounters Date Type Department Care Team (Late st Contact Info) Description 07/15/2024 9:00 AM EST Hospital Encounter [facility] Interventional Radiology [address] [place] [address] Herve Carrillo MD [address] [facility] 3[address] Surgery [place] [address] documented as of this encounter Visit Diagnoses Not on filedocumented in this encounter Additional Health Concerns Assessment Noted Time PHQ-9 Depression Total Score: 0 12/06/19 18 3:00 PM EDT documented as of this encounter Care Teams Lieutenant Governor Relationship Specialty Start Date End Date Edgar Fournier MD [address] [place] [address] [place] [address] PCP - General 08/18/17 06/23/21 Maile Valles, JANA Txp Post Coordinator Transplant Hepatology 11/07/17 Jack Ordoñez MD [address] [place] [phone] Consulting Physician Transplant Hepatology 01/05/18 Estephania Sharif, DarrianD Pharmacist Pharmacist 11/11/19 documented as of this encounter
--- OUTSIDE RECORDS SUMMARY | 2024-07-12 12:43 | XMS_ITS | Encounter Summary ---
Author Organization [facility] Address [address] [place] [address] Care Team Providers Care Steel Chipper Name Role Phone Edgar Fournier MD Primary Care Provider [phone] Maile Valles RN Unavailable Unavail able Jack Ordoñez MD Unavailable [phone] Estephania Sharif PharmD Unavailable Christine vailable [...] release of HIV test results or diagnoses. [id number] Health Encounter Details Date Type Department Care Team (Late st Contact Info) Description 03/12/[address] [facility] Liver Transplant at [place] [id number] [address] Lyndsey Lozano, RN Social History Tobacco Use Types Packs/Day [...] Telephone Encounter - Lyndsey Lozano RN - 03/12/2020 1:57 PM EDT Lab results from 03/12/20 reviewed. BUN 56 sCr 8.79. on HD Liver numbers WNL Cyclo level 95 (goal 95-125) Will continue to monitor labs as previously determined. Note routed to Txp Coordinator for communication. documented in this encounter Plan of Treatment Upcoming Encounters Date Type Department Care Team (Late st Contact Info) Description 07/15/2024 9:00 AM EST Hospital Encounter [facility] Interventional Radiology [address] [place] [phone] Herve Carrillo MD 3130 [facility] 3200 Surgery [place] [address] documented as of this encounter Visit Diagnoses Not on filedocumented in this encounter Additional Health Concerns Assessment Noted Time PHQ-9 Depression Total Score: 0 12/06/19 18 3:00 PM EDT documented as of this encounter Care Teams Steel Chipper Relationship Specialty Start Date End Date [place] [address] PCP - General 08/18/17 06/23/21 Maile Valles, JANA Txp Post Coordinator Transplant Hepatology 11/07/17 Jack Ordoñez MD [address] [place] [phone] Consulting Physician Transplant Hepatology 01/05/18 Estephania Sharif, DarrianD Pharmacist Pharmacist 11/11/19 documented as of this encounter
--- OUTSIDE RECORDS SUMMARY | 2024-07-12 12:43 | XMS_ITS | Encounter Summary ---
Author Organization [facility] Address [address] [place] [address] Care Team Providers Care Jalousies Installer Name Role Phone Edgar Fournier MD Primary Care Provider [phone] Maile Valles RN Unavailable Unavail able Jack Ordoñez MD Unavailable [phone] Estephania Sharif PharmD Unavailable Christine vailable [...] release of HIV test results or diagnoses. [id number] Health Encounter Details Date Type Department Care Team (Late st Contact Info) Description 01/27/2020 Telephone [facility] Liver Transplant at [place] [id number] [facility] [address] [place] [address] Anne Whitt MA Social History Tobacco [...] Telephone Encounter - Anne Whitt MA - 01/27/2020 2:29 PM EDT Pt called to ask for number for [facility]. While on phone with pt he stated he had labs drawn at today. He also stated that he has been getting short of breath when walking 50-100 feet and has had a bad taste in his mouth. He states he was recently hospitalized and was told his hemoglobin was low. Wanted to alert team that labs were drawn and asked to have someone contact him after labs resulted. documented in this encounter Plan of Treatment Upcoming Encounters Date Type Department Care Team (Late st Contact Info) Description 07/15/2024 9:00 AM [facility] Hospital Encounter [facility] Interventional Radiology [address] [place] [phone] Herve Carrillo MD 3130 [facility] 3200 [place] [phone] documented as of this encounter Visit Diagnoses Not on filedocumented in this encounter Additional Health Concerns Assessment Noted Time PHQ-9 Depression Total Score: 0 12/06/19 18 3:00 PM EDT documented as of this encounter Care Teams Jalousies Installer Relationship Specialty Start Date End Date Edgar Fournier MD [address] [place] [address] [place] [address] PCP - General 08/18/17 06/23/21 Maile Valles, JANA Txp Post Coordinator Transplant Hepatology 11/07/17 Jack Ordoñez MD [facility] [place] [address] Consulting Physician Transplant Hepatology 01/05/18 Estephania Sharif, DarrianD Pharmacist Pharmacist 11/11/19 documented as of this encounter
--- OUTSIDE RECORDS SUMMARY | 2024-07-12 12:43 | XMS_ITS | Encounter Summary ---
Author Organization [facility] Address [facility] [place] [address] Care Team Providers Care Mixer Runner Name Role Phone Edgar Fournier MD Primary Care Provider [phone] Maile Valles RN Unavailable Unavail able Jack Ordoñez MD Unavailable [phone] Estephania Sharif PharmD Unavailable Christine vailable [...] release of HIV test results or diagnoses. [id number] Health Encounter Details Date Type Department Care Team (Late st Contact Info) Description 01/27/2020 Telephone [facility] Liver Transplant at [facility] [place] [address] [place] [address] Latrice Brice, REBEKAH Social History Tobacco Use Types Packs/Day Years [...] encounter Miscellaneous Notes * Telephone Encounter - Latrice Brice MA - 01/27/2020 1:29 PM EDT Regarding rescheduling follow-up appointment to a later date. documented in this encounter Plan of Treatment Upcoming Encounters Date Type Department Care Team (Late st Contact Info) Description 07/15/2024 9:00 AM EST Hospital Encounter [facility] Interventional Radiology [address] [place] [phone] Herve Carrillo MD 3130 [facility] 3200 Surgery Trans[place] [phone] documented as of this encounter Visit Diagnoses Not on filedocumented in this encounter Additional Health Concerns Assessment Noted Time PHQ-9 Depression Total Score: 0 12/06/19 18 3:00 PM EDT documented as of this encounter Care Teams Mixer Runner Relationship Specialty Start Date End Date Edgar Fournier MD [address] [place] [address] [place] [address] PCP - General 08/18/17 06/23/21 Maile Valles, JANA Txp Post Coordinator Transplant Hepatology 11/07/17 Jack Ordoñez MD [address] [place] [phone] Consulting Physician Transplant Hepatology 01/05/18 Estephania Sharif, PharmD Pharmacist Pharmacist 11/11/19 documented as of this encounter
--- OUTSIDE RECORDS SUMMARY | 2024-07-12 12:43 | XMS_ITS | Encounter Summary ---
Author Organization [facility] Address [address] [place] [address] Care Team Providers Care Inventory Control Associate Name Role Phone Edgar Fournier MD Primary Care Provider [phone] Maile Valles RN Unavailable Unavail able Jack Ordoñez MD Unavailable [phone] Estephania Sharif PharmD Unavailable Christine vailable [...] release of HIV test results or diagnoses. [id number] Reason for Visit * Reason Comments Medication Refill Encounter Details Date Type Department Care Team (Late st Contact Info) Description 01/24/2020 Refill [facility] Liver Transplant at [address] [place] [address] Cayetano Park MA Social History Tobacco Use Types Packs/Day [...] Telephone Encounter - Anne Whitt MA - 01/24/2020 4:03 PM EDT Call his local lab to check and see if labs were drawn. He had some while inpatient but no cyclo level. Tried to call pt but no answer and no VM to leave message. * Telephone Encounter - Cayetano Park MA - 01/24/2020 3:30 PM EDT Aiden called said he needs a refill on his BEraclude sent to pharmacy on file documented in this encounter Plan of Treatment Upcoming Encounters Date Type Department Care Team (Late st Contact Info) Description 07/15/2024 9:00 AM [facility] Hospital Encounter [facility] Interventional Radiology [address] [place] [phone] Herve Carrillo MD 5736 [facility] 3200 Surgery [place] [phone] documented as of this encounter Visit Diagnoses Not on filedocumented in this encounter Additional Health Concerns Assessment Noted Time PHQ-9 Depression Total Score: 0 12/06/19 18 3:00 PM EDT documented as of this encounter Care Teams Inventory Control Associate Relationship Specialty Start Date End Date [place] [address] PCP - General 08/18/17 06/23/21 Maile Valles, JANA Txp Post Coordinator Transplant Hepatology 11/07/17 Jack Ordoñez MD [address] [place] [phone] Consulting Physician Transplant Hepatology 01/05/18 Estephania Sharif, PharmD Pharmacist Pharmacist 11/11/19 documented as of this encounter
--- OUTSIDE RECORDS SUMMARY | 2024-07-12 12:43 | XMS_ITS | Encounter Summary ---
Author Organization [facility] Address [address] [place] [address] Care Team Providers Care Instructor Business Education Name Role Phone Edgar Fournier MD Primary Care Provider [phone] Maile Valles RN Unavailable Unavail able Jack Ordoñez MD Unavailable [phone] Estephania Sharif PharmD Unavailable Christine vailable [...] release of HIV test results or diagnoses. [id number] Encounter Details Date Type Department Care Team (Latest Contact Info) Description 01/27/2020 Travel Social History Tobacco Use Types Packs/Day [...] Hospital Encounter [facility] Interventional Radiology [address] [place] [phone] Herve Carrillo MD 3130 [facility] 3200 [place] [address] documented as of this encounter Visit Diagnoses Not on filedocumented in this encounter Additional Health Concerns Assessment Noted Time PHQ-9 Depression Total Score: 0 12/06/19 18 3:00 PM EDT documented as of this encounter Care Teams Instructor Business Education Relationship Specialty Start Date End Date Edgar Fournier MD [address] [place] [address] [place] [address] PCP - General 08/18/17 06/23/21 Maile Valles, JANA Txp Post Coordinator Transplant Hepatology 11/07/17 Jack Ordoñez MD [address] [place] [phone] Consulting Physician Transplant Hepatology 01/05/18 Estephania Sharif, DarrianD Pharmacist Pharmacist 11/11/19 documented as of this encounter
--- OUTSIDE RECORDS SUMMARY | 2024-07-12 12:43 | XMS_ITS | Encounter Summary ---
Author Organization [facility] Address [address] [place] [address] Care Team Providers Care Commercial Attorney Name Role Phone Edgar Fournier MD Primary Care Provider [phone] Maile Valles RN Unavailable Unavail able Jack Ordoñez MD Unavailable [phone] Estephania Sharif PharmD Unavailable Christine vailable System, Provider Not In Primary Care Provider Un available Edgar Fournier MD Primary Care Provider [phone] Source Comments This information has been disclosed [...] release of HIV test results or diagnoses. [id number] Health Encounter Details Date Type Department Care Team (Late st Contact Info) Description 01/27/[address] [facility] Outreach Lab Test Referral Center [address] [place] [phone] Altagracia Maria Liver replaced by transplant ([facility]); Pharmacologic therapy; Encounter for therapeutic drug monitoring; Transplanted liver ([facility]); Drug therapy Social History Tobacco Use Types [...] Hospital Encounter [facility] Interventional Radiology [address] [place] [phone] Herve Carrillo MD 6670 [facility] 3200 [place] [phone] documented as of this encounter Procedures Procedure Name Priority Date/Time Associated Diagnosis Comments HEPATIC FUNCTION PANEL Routine 01/27/2020 1:57 PM EDT Transplanted liver (CMS-HCC) Drug therapy CYCLOSPORINE LEVEL Routine 01/27/2020 1: 57 PM EDT Liver replaced by transplant ([facility]) Pharmacologic therapy Encounter for therapeutic drug monitoring documented in this encounter Results * Hepatic Function Panel (01/27/2020 1:57 PM EDT) Total Bilirubin 0.4 0.0 - 1.5 mg/dL 01/27/2020 4:00 PM EDT [facility] Bilirubin, Direct 0.08 0.00 - 0.40 mg/dL 01/27/2020 4:00 PM EDT [facility] AST 14 13 - 39 U/L 01/27/2020 4:00 PM EDT [facility] ALT 14 7 - 52 U/L 01/27/2020 4:00 PM EDT [facility] Alkaline Phosphatase 113 36 - 125 U/L 01/27/2020 4:00 PM EDT [facility] Total Protein 6.8 6.4 - 8.9 g/dL 01/27/2020 4:00 PM EDT [facility] Albumin 4.3 3.5 - 5.7 g/dL 01/27/2020 4:00 PM EDT [facility] Bilirubin, Indirect 0.32 0.00 - 1.10 mg/dL 01/27/2020 4:00 PM EDT [facility] Plasma specimen (specimen) 01/27/2020 1:57 PM EDT 01/27/2020 2:51 PM EDT Narrative [facility] - 01/27/2020 4:00 PM EDT Standing labs monthly. Please fax results to [phone] Jack Ordoñez MD LAB BLOOD ORDERABLES Final Re sult Performing Organization Address [facility] Co de Phone Number [facility] [address] [facility]. [address] * (ABNORMAL) Cyclosporine level (01/27/2020 1:57 PM EDT) Cyclosporine, Blood 86(L) 100 - 400 ng/mL 01/28/2020 2:15 PM EDT [facility] Comment: Detection limit: ??30 ng/mL. ??Performed via chemiluminescent microparticle immunoassay on the [employer] i1000. Whole blood specimen (specimen) 01/27/2020 1:57 PM EDT 01/27/2020 2:51 PM EDT [facility] - 01/28/2020 2:15 PM EDT Standing lab; draw frequency will vary based on condition. Fax results to [phone]. Call critical values to [phone]. Jack Ordoñez MD LAB BLOOD ORDERABLES Final Re sult [facility] [address] [facility]. [address] documented in this encounter Visit Diagnoses Diagnosis Liver replaced by transplant (CMS-HCC) Liver replaced by transplant Pharmacologic therapy Encounter for other specified aftercare Encounter for therapeutic drug monitoring Transplanted liver (CMS-HCC) Liver replaced by transplant Drug therapy Encounter for other specified aftercare documented in this encounter Additional Health Concerns Infection Onset Date Last Indicated Resolved Time Rule Out COVID-19 05/28/2020 05/28/2020 05/29/2020 10:53 AM EDT Rule Out COVID-19 06/05/2020 06/05/2020 06/06/2020 10:52 AM EDT Rule Out COVID-19 07/14/2020 07/14/2020 07/15/2020 12:52 PM EST Rule Out COVID-19 08/09/2020 08/09/2020 08/10/2020 10:14 AM EST Rule Out COVID-19 10/31/2021 10/31/2021 11/01/2021 6:40 AM EDT Rule Out COVID-19 03/16/2022 03/17/2022 03/17/2022 9:55 AM EDT Rule Out COVID-19 05/01/2022 05/01/2022 05/02/2022 4:02 PM EDT Rule Out C. difficile 11/05/2023 11/06/20232023 10:01 PM EDT Assessment Noted Time PHQ-9 Depression Total Score: 0 12/06/19 3:00 PM EDT documented as of this encounter Care Teams Commercial Attorney Relationship Specialty Start Date End Date Edgar Fournier MD [address] [place] [address] [place] [address] PCP - General 08/18/17 06/23/21 System, Provider Not In PCP - General 06/24/21 12/21/21 Edgar Fournier MD [address] [place] [address] [place] [address] PCP - General 12/22/21 Maile Valles, JANA Txp Post Coordinator Transplant Hepatology 11/07/17 Jack Ordoñez MD [address] [place] [phone] Consulting Physician Transplant Hepatology 01/05/18 Estephania Sharif, DarrianD Pharmacist Pharmacist 11/11/19 documented as of this encounter
--- OUTSIDE RECORDS SUMMARY | 2024-07-12 12:43 | XMS_ITS | Encounter Summary ---
Author Organization [facility] Address [address] [place] [address] Care Team Providers Care Direct Care Professional Name Role Phone Edgar Fournier MD Primary Care Provider [phone] Maile Valles RN Unavailable Unavail able Jack Ordoñez MD Unavailable [phone] Estephania Sharif PharmD Unavailable Christine vailable [...] release of HIV test results or diagnoses. [id number] Reason for Visit * Reason Comments Pre-op Call Encounter Details Date Type Department Care Team (Late st Contact Info) Description 02/27/2020 Telephone [facility] Transplant Related Interdisciplinary Metabolic Surgery at [address] [address] Laurence Hernandez MA Pre-op Call Social History Tobacco Use Types Packs/Day [...] Telephone Encounter - Laurence Hernandez MA - 02/27/2020 10:53 AM EDT Spoke with pt over the phone regarding surgery. Surgery is scheduled for 04/09/2020 at 1000, arrival time is [address] diagnostic [place] [employer] appt is 03/12/2020 at [address] Pre-op appt is 03/11/2020at [address] Farooq LUNA testing is 04/06/20 at 1300 at [address] [facility] 202 NPO after midnight the night before Mailed surgery information to pt. Pt understood everything and no questions were ask, my direct line was provided documented in this encounter Plan of Treatment Upcoming Encounters Date Type Department Care Team (Late st Contact Info) Description 07/15/2024 9:00 AM EST Hospital Encounter [facility] Interventional Radiology [address] [place] [phone] Herve Carrillo MD [address] [facility] [address] Surgery [place] [phone] documented as of this encounter Visit Diagnoses Not on filedocumented in this encounter Additional Health Concerns Assessment Noted Time PHQ-9 Depression Total Score: 0 12/06/19 18 3:00 PM EDT documented as of this encounter Care Teams Direct Care Professional Relationship Specialty Start Date End Date Edgar Fournier MD [address] [place] [address] [place] [address] PCP - General 08/18/17 06/23/21 Maile Valles, RN Txp Post Coordinator Transplant Hepatology 11/07/17 Jack Ordoñez MD [facility] [place] [address] Consulting Physician Transplant Hepatology 01/05/18 Estephania Sharif, PharmD Pharmacist Pharmacist 11/11/19 documented as of this encounter
--- OUTSIDE RECORDS SUMMARY | 2024-07-12 12:43 | XMS_ITS | Encounter Summary ---
Author Organization [facility] Address [address] [place] [address] Care Team Providers Care Circuit Design Engineer Name Role Phone Edgar Fournier MD Primary Care Provider [phone] Maile Valles RN Unavailable Unavail able Jack Ordoñez MD Unavailable [phone] Estephania SharifD Unavailable Christine vailable Source Comments This information [...] release of HIV test results or diagnoses. [id number] Health Encounter Details Date Type Department Care Team (Late st Contact Info) Description 02/04/2020 Chart Note [facility] [address] [place] [address] Judi Khan RPh [facility]: Pharmacist Reassessment Social History Tobacco Use Types Packs/Day Years [...] as of this encounter Progress Notes * Judi Khan, [facility] - 02/04/2020 4:06 PM EDT [facility]: Pharmacist Reassessment Aiden Stauffer Jr. is a 44 y.o. patient for which has been prescribed cyclosporine modified and mycophenolate for immunosuppression following liver transplant on 10/08/2017. Updates/Medication Changes Since Last Assessment: ?? Patient's current immunosuppressive regimen is: mycophenolate 250 mg twice daily, cyclosporine modified 50 mg twice daily ?? Patient's current regimen for prophylaxis is: entecavir 0.5 mg every 7 days Medication Reconciliation: Patient's prescription and non-prescription medications and natural supplements were reviewed with the patient by Judi Khan and medication list updated. New Meds/Med Changes: none Adherence: states zero missed doses Adverse Effects: notes some fatigue, but iron and hemoglobin low per patient account (being managedby outside billing representative in charge of dialysis) Specialty Pharmacy Care Management Plan ?? Discussed the following with the patient: ?? Issues (if any) patient has had with taking medication as prescribed: none ?? Side effects (if any) experienced while on treatment: As stated above ?? Changes to medical history or any new prescription or non-prescription medications or herbal supplements: none ?? How patient is currently taking specialty medication (dose/frequency): As documented above ?? Patient???s perception of effectiveness of medication therapy: adequate or expected response ?? Clinical Assessment of patient's therapy: ?? Assessment of continued appropriateness of therapy: appropriate ?? Assessment of continued effectiveness of therapy: prevention of organ rejection and drug level monitoring ?? Assessment of occurrence of medication adverse effects: tolerable ?? Assessment of patient's medication adherence: followed as prescribed ?? Issues identified during telephone call that will be routed to transplant team: bolded note above regarding iron/hemoglobin ?? PCP Contact: Dr. Edgar Fournier ?? Needs assessment: none identified ?? Strategies to address needs: not applicable ?? Goals and time frame: lifelong medication compliance to prevent organ rejection ?? Resources available to implement care management plan: patient assistance program enrolled for [employer] and Gengraf ?? Patient's motivation: moderate ?? Treatment based on AASLD guidelines and 's liver transplant protocol Reassessment due in 12 weeks, approximately 04/28/2020. Routed note to provider for review. [facility] [phone] (phone) 02/04/2020, 4:07 PM documented in this encounter Plan of Treatment Upcoming Encounters Date Type Department Care Team (Late st Contact Info) Description 07/15/2024 9:00 AM EST Hospital Encounter [facility] Interventional Radiology [address] [place] [phone] Herve Carrillo MD [address] [facility] [address] [place] [phone] documented as of this encounter Visit Diagnoses Not on filedocumented in this encounter Additional Health Concerns Assessment Noted Time PHQ-9 Depression Total Score: 0 12/06/19 18 3:00 PM EDT documented as of this encounter Care Teams Circuit Design Engineer Relationship Specialty Start Date End Date Edgar Fournier MD [address] [place] [address] [place] [address] PCP - General 08/18/17 06/23/21 Maile Valles, RN Txp Post Coordinator Transplant Hepatology 11/07/17 Jack Ordoñez MD [address] [place] [phone] Consulting Physician Transplant Hepatology 01/05/18 Estephania Sharif, DarrianD Pharmacist Pharmacist 11/11/19 documented as of this encounter
--- OUTSIDE RECORDS SUMMARY | 2024-07-12 12:43 | XMS_ITS | Encounter Summary ---
Author Organization [facility] Address [facility] [place] [address] Care Team Providers Care Fitness Supervisor Name Role Phone Edgar Fournier MD Primary Care Provider [phone] Maile Valles RN Unavailable Unavail able Jack Ordoñez MD Unavailable [phone] Estephania Sharif PharmD Unavailable Christine vailable [...] release of HIV test results or diagnoses. [id number] Reason for Referral * Physician/ANUSHA (Routine) - Closed Specialty Diagnoses / Procedures Referred By Contac t Referred To Contact [facility] Pulmonary Disease Diagnoses Pulmonary HTN ([facility]-HCC) Marcelino Haynes Jr., MD [address] [facility] [place] [address] Phone: tel: fax: Lyle Roy MD [address] [facility], [address] [place] [phone] Phone: tel: fax: Referral ID Status Reason Start Date Expiration Date Visits Re quested Visits Authorized [id number] Closed 03/16/2020 09/12/2020 1 1 Scheduling Instructions For appointments, please call [phone]. Reason for Visit * Reason Comments Follow-up Encounter Details Date Type Department Care Team (Late st Contact Info) Description 03/16/2020 9:45 AM EDT Office Visit [facility] Cardiology at [facility] [address] [phone] Marcelino Haynes Jr., MD [address] [place] [address] Pulmonary HTN (CMS-HCC) (Primary Dx) Social History Tobacco Use [...] Sign Reading Time Taken Comments Blood Pressure 162/98 03/16/2020 9:39 AM EDT Pulse 90 03/16/2020 9:39 AM EDT Temperature - - Respiratory Rate - - Oxygen Saturation 99% 03/16/2020 9:39 AM EDT Inhaled Oxygen Concentration 99% 03/16/2020 9 :39 AM EDT Weight 126.1 kg (278 lb) 03/16/2020 9:39 AM EDT Height - - Body Mass Index 43.54 03/12/2020 11:03 AM EDT documented in this encounter Patient Instructions * Patient Instructions* Erika Vu RN - 03/16/2020 9:45 AM EDT Follow up at [facility] in 6 months. You have been referred to pulmonary. documented in this encounter Progress Notes * Marcelino Haynes Jr., MD - 03/16/2020 9:45 AM EDT Subjective: Patient ID: Aiden Stauffer Jr. is a 45 y.o. male. Chief Complaint: HPI Mr. 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 He presents for cardiac clearance for gastric sleeve. He reports being active and enjoys going down to the horse race [place] in [place]. He has bad lower extremity neuropathy which limits him, but it improves somewhat with walking. He is able to walk up 2 flights of stairs without stopping with the exception of when his hemoglobin is down. He walks for 45 minutes each day at the [employer] and denies any limiting symptoms with this. He sleeps on 1 pillow. Denies PND. He has occasional swelling in his ankles. TTE (): - Left ventricle: The cavity size is [...] the right atrial pressure ?was 15 mmHg. Cardiac cath (08/05/18): 1. The coronary circulation is right dominant. [...] ! + + + !RV pressure s/d ?! ?! + + + !PA pressure s/d [...] + +-----+ + !Condition1:Condition 1 - ?? !MkotcsaB0Orlbybqeusg!292.5!ml/min ? ! !Abelino ? ! ?! ? ! ? ! + + +-----+ + !Condition1:Condition 1 - ?? !StrokeWorkIndex ? !74.1 !(gm x ?! !Abelino ? ! ?! ? !M)/M^2 ? ! + + +-----+ + !Condition1:Condition 1 - ?? !StrokeVolumeIndex ?? !68.1 !ml/M^2 ? ! !Abelino ? ! ?! ? ! ? ! + + +-----+ + V/Q (10/24/17): No segmental perfusion defects to suggest pulmonary embolism. Extensive review of symptoms reviewed/scanned into record. Histories: He has a past medical history of Acute pancreatitis, Anemia, Ascites, Diabetes mellitus (CMS Dx), Dialysis patient ([facility] Dx), Esophageal varices with bleeding (CMS Dx), GERD (gastroesophageal reflux disease), Hearing loss, Hepatic encephalopathy (CMS Dx), Hypertension, Liver cirrhosis secondary to SAL (CMS Dx), Pulmonary HTN (CMS Dx), Sleep apnea, and Vitamin D deficiency. He has a past surgical history that includes TIPS procedure (10/2016); TIPS Revision (04/2017); Liver transplantation (N/A, 10/08/2017); Left and Right Heart Cath (N/A, 06/05/2018); Abdominal surgery;and Esophagogastroduodenoscopy (N/A, 07/24/2019). His family history includes Diabetes in his sister. He reports that he has never smoked. He has never used smokeless tobacco. He reports that he does not drink alcohol or use drugs. ROS: Review of Systems Constitution: Negative for chills, decreased appetite, diaphoresis, fever, malaise/fatigue, night sweats, weight gain and weight loss. HENT: Positive for hearing loss. Negative for congestion, ear discharge, ear pain, hoarse voice, nosebleeds, odynophagia, sore throat, stridor and tinnitus. Eyes: Positive for vision loss in left eye, vision loss in right eye and visual disturbance. Negative for blurred vision, discharge, double vision, pain, photophobia, redness and visual halos. Cardiovascular: Negative for chest pain, claudication, cyanosis, dyspnea on exertion, irregular heartbeat, leg swelling, near-syncope, orthopnea, palpitations, paroxysmal nocturnal dyspnea and syncope. Respiratory: Positive for sleep disturbances due to breathing and snoring. Negative for cough, hemoptysis, shortness of breath, sputum production and wheezing. Endocrine: Negative for cold intolerance, heat intolerance, polydipsia, polyphagia and polyuria. Hematologic/Lymphatic: Negative for adenopathy and bleeding problem. Bruises/bleeds easily. Skin: Negative for color change, dry skin, flushing, itching, nail changes, poor wound healing, rash, skin cancer, suspicious lesions and unusual hair distribution. Musculoskeletal: Positive for arthritis and muscle cramps. Negative for back pain, falls, gout, joint pain, joint swelling, muscle weakness, myalgias, neck pain and stiffness. Gastrointestinal: Positive for change in bowel habit, bowel incontinence, constipation, heartburn and nausea. Negative for bloating, abdominal pain, anorexia, diarrhea, dysphagia, excessive appetite,flatus, hematemesis, hematochezia, hemorrhoids, jaundice, melena and vomiting. Genitourinary: Positive for bladder incontinence, decreased libido and hesitancy. Negative for dysuria, flank pain, frequency, genital sores, hematuria, incomplete emptying, nocturia, pelvic pain andurgency. Neurological: Negative for aphonia, brief paralysis, difficulty with concentration, disturbances incoordination, excessive daytime sleepiness, dizziness, focal weakness, headaches, light-headedness,loss of balance, numbness, paresthesias, seizures, sensory change, tremors, vertigo and weakness. Psychiatric/Behavioral: Negative for altered mental status, depression, hallucinations, hypervigilance, memory loss, substance abuse, suicidal ideas and thoughts of violence. The patient does not have insomnia and is not nervous/anxious. Allergic/Immunologic: Negative for environmental allergies, HIV exposure, hives and persistent infections. Allergies: Codeine sulfate and Codeine Medications: Outpatient Encounter Medications as of 03/16/2020 Medication Sig Dispense Refill ??? aspirin 81 MG chewable tablet Chew 1 tablet (81 mg total) by mouth daily with breakfast. 30 tablet 5 ??? blood sugar diagnostic Strp Use to test blood sugar up to 4 times a day. Diagnosis for use: E 9.65. For use with One Touch Verio meters. 150 strip 5 ??? blood-glucose meter (ONETOUCH VERIO SYSTEM) [facility] Use as instructed. 1 each 0 ??? carBAMazepine (TEGRETOL) 200 mg tablet Take 200 mg by mouth at bedtime. ??? cloNIDine HCl (CATAPRES) 0.1 MG tablet Take 1 tablet (0.1 mg total) by mouth 2 times a day. (Patient taking differently: Take 0.1 mg by mouth if needed. ) ??? doxazosin (CARDURA) 8 MG tablet 8 [...] as needed ) 15 mL 5 ??? lancets (ONETOUCH DELICA LANCETS) 33 gauge Misc Use 1 strip as directed 4 times daily before meals and at bedtime. 150 each 5 ??? mycophenolate (CELLCEPT) 250 mg capsule Take 1 capsule (250 mg total) by mouth 2 times a day. 60 capsule 11 ??? NIFEdipine (PROCARDIA-XL) 90 MG (OSM) 24 hr tablet Take 90 mg by mouth 2 times a day. ??? ondansetron (ZOFRAN-ODT) 4 MG disintegrating tablet every 8 hours as needed. ??? pen needle, diabetic 32 gauge x /32 Ndle Use as directed to inject insulin 4 times daily. 150each 5 ??? polyethylene glycol (MIRALAX) 17 gram packet Take 17 g by mouth 2 times a day as needed. 100 packet 0 ??? cycloSPORINE modified (NEORAL) 25 MG capsule Take 2 capsules (50 mg total) by mouth 2 times a day. 120 capsule 5 ??? liraglutide (VICTOZA 2-GALI) 0.6 mg/0.1 mL (18 mg/3 mL) PnIj Inject 1.8 mg subcutaneously daily. No facility-administered encounter medications on file as of 03/16/2020. Objective: Blood pressure (!) 162/98, pulse 90, weight (!) 278 lb (126.1 kg), SpO2 99 %. Physical Exam Gen: Well nourished; Alert & oriented Skin: no rashes and no abnormalities with palpation Neck: no masses with normal motion and no evidence of an enlarged thyroid Eyes: no evidence of visual defects and normal sclera Ears: no abnormalities; Normal hearing Mouth: normal teeth and appropriately moist mucous membranes Lymph: No lymph node enlargements identified in the axilla, groin or neck Chest: clear to auscultation. There is normal respiratory effort and expansion. CV: examination showed a regular rhythm. S1 and S2 were normal. There were no murmurs or gallops noted. JVP was estimated as normal. Abd: non tender abdomen without organomegaly and with normal bowel sounds. Lower extremities: no edema and normal pulses bilaterally. Upper extremities: equal pulses and normal form and function. Carotids: no bruits. Neurologic:Cranial nerves intact; Sensation normal; no localizing signs Lab Review: CBC: Lab Results Component Value Date HGB 11.6 (L) 03/12/2020 HCT 33.6 (L) 03/12/2020 PLT 242 03/12/2020 WBC 5.9 03/12/2020 MCV 96.3 03/12/2020 MCH 33.3 (H) 03/12/2020 RENAL: Lab Results Component Value Date NA 138 03/12/2020 K 4.8 03/12/2020 CL 101 03/12/2020 CO2 24 03/12/2020 BUN 56 (H) 03/12/2020 CREATININE 8.79 (H) 03/12/2020 GLUCOSE 138 (H) 03/12/2020 PHOS 6.8 (H) 03/12/2020 ALBUMIN 4.5 03/12/2020 ALBUMIN 4.5 03/12/2020 CALCIUM 8.8 03/12/2020 LIVER: Lab Results Component Value Date AST 13 03/12/2020 ALT 14 03/12/2020 BILITOT 0.4 03/12/2020 ALBUMIN 4.5 03/12/2020 ALBUMIN 4.5 03/12/2020 ALKPHOS 112 03/12/2020 LIPIDS: Lab Results Component Value Date CHOLTOT 236 (H) 01/27/2020 LDL 143 01/27/2020 HDL 32 (L) 01/27/2020 TRIG 303 (H) 01/27/2020 THYROID: Lab Results Component Value Date TSH 3.59 01/27/2020 FREET4 1.03 10/20/2017 DIABETES: Lab Results Component Value Date HGBA1C 6.9 (H) 01/27/2020 GLUCOSE 138 (H) 03/12/2020 CREATININE 8.79 (H) 03/12/2020 CREATININE 3.9 04/03/2019 Body mass index is 43.54 kg/m??. @[id number]@ EKG Interpretation: No EKG done at this visit Assessment: Mr. 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 He presents for cardiac clearance for gastric sleeve. Plan: 1. Cardiac clearance. Mr. Stauffer does not have angina, valvular heart disease, or decompensated heart failure. His estimated pulmonary pressures on echocardiogram from 08/01 are not significantly different than his PA pressure of 50/15 (29) at the time of his right heart cath in 07/31. He is not fun ctionally limited and does not endorse dyspnea. He is low risk from a cardiac standpoint for gastric sleeve. 2. Mild pulmonary hypertension (RVSP 50 mmHg) with normal right ventricular function by echo in 08/01. He is NYHA class I. His pulmonary hypertension is likely due to combination of prior liver disease, JC, ESRD, and obesity hypoventilation. He has a normal V/Q scan in 10/29. Plan: - refer to pulmonary hypertension for further evaluation - no need for RHC at this standpoint unless needed by pulmonary for reassessment of invasive pressures 3. HTN, poorly controlled. Will defer management to nephrology. documented in this encounter Plan of Treatment Upcoming Encounters Date Type Department Care Team (Late st Contact Info) Description 07/15/2024 9:00 AM EST Hospital Encounter [facility] Interventional Radiology [address] [place] [phone] Herve Carrillo MD [address] [facility] [address] [place] [phone] Scheduled Referrals Name Type Priority Associated Diagnoses Orde r Schedule Pulmonology Outpatient Referral Routine Pulmonary HTN (CMS-HCC) Ordered: 03/16/2020 documented as of this encounter Visit Diagnoses Diagnosis Pulmonary HTN (CMS-HCC)- Primary documented in this encounter Additional Health Concerns Assessment Noted Time PHQ-9 Depression Total Score: 0 12/06/19 3:00 PM EDT documented as of this encounter Care Teams Fitness Supervisor Relationship Specialty Start Date End Date [place] [phone] PCP - General 08/18/17 06/23/21 Maile Valles, RN Txp Post Coordinator Transplant Hepatology 11/07/17 Jack Ordoñez MD [facility] [place] [address] Consulting Physician Transplant Hepatology 01/05/18 Estephania Sharif, PharmD Pharmacist Pharmacist 11/11/19 documented as of this encounter
--- OUTSIDE RECORDS SUMMARY | 2024-07-12 12:43 | XMS_ITS | Encounter Summary ---
Author Organization [facility] Address [facility] [place] [address] Care Team Providers Care Mail Carrier Name Role Phone Edgar Fournier MD Primary Care Provider [phone] Maile Valles RN Unavailable Unavail able Jack Ordoñez MD Unavailable [phone] Estephania Sharif PharmD Unavailable Christine vailable [...] release of HIV test results or diagnoses. [id number] Health Encounter Details Date Type Department Care Team (Late st Contact Info) Description 04/07/2020 Chart Note [facility] [place] [phone] Gloria Torres, PharmD Clinical Pharmacy Services: Gastric Sleeve Post-Operative Medication Social History Tobacco Use Types Packs/Day Years [...] as of this encounter Progress Notes * Gloria Torres, PharmD - 04/07/2020 9:40 AM EDT Clinical Pharmacy Services: Gastric Sleeve Post-Operative Medication Administration Consulted by surgeon Dr. STAR Shipley to provide recommendations on home medications post sleeve gastrectomy. Per consult, all pills must be crushed or changed to liquids for 14 days post-op. Recommendations based on pre-operative medication list documented by [facility] (Sujata Padgett NP on 03.12.20). Prescriber to evaluate clinical impact of switching or holding therapies post-operatively, as appropriate. Recommendations for medication administration per consult include: Medication Inpatient Recommendation Outpatient Recommendation aspirin 81 mg EC change to chew tabs; crush/chew change to chew tabs; crush/chew carbamazepine IR tablet, crewable tablet, or oral suspension (same dose) IR tablet, crewable tablet, or oral suspension (same dose) clonidine hold; may crush if needed for BP control may crush if needed for BP control cyclosporine (modified) Use cyclosporine (modified) oral solution Use cyclosporine (modified) oral solution; patient should follow administration instructions that come with product doxazosin if using for hypertension, consider holding initially and restarting if needed for BP control; will interchange to terazosin capsules, which can be opened if using for hypertension, consider holding initially and restarting if needed for BP control; may crush entecavir change to oral suspension change to oral suspension ergocalciferol hold Liquid available over the counter Famotidine IV crush Gabapentin use oral liquid open capsules/crush tablets Hydralazine hold; may crush if needed for BP control or other indications may crush if needed for BP control or other indications Insulin, (all): DM2 insulin requirements typically drastically reduced post- sleeve; use correction with minimal to no basal insulin initially. continue as needed; much lower dosage requirements typically required liraglutide (Viktoza) hold; start patient on correction insulin. hold; monitor blood glucose; contact MD if hyperglycemia develops mycophenolate mofetil use IV or oral suspension (same dose) use oral suspension Nifedipine CC hold; if BP elevated post-op, switch to amlodipine; crush if BP elevated, consider using amlodipine; crush ondansetron ODT oral disintegrating tablet oral disintegrating tablet polyethylene glycol dissolves in liquid dissolves in liquid New dosage forms needed post-op (outpatient coordinator to arrange): Aspirin (ensure formulation and change as needed), carbamazepine (ensure formulation and change as needed), cyclosporine, entecavir, gabapentin, mycophenolate Please contact me with any questions. Gloria Torres PharmD Clinical Regional Business Manager Pager: [phone] On-Call/Weekend Pager: [phone] 04/07/20 10:07 AM documented in this encounter Plan of Treatment Upcoming Encounters Date Type Department Care Team (Late st Contact Info) Description 07/15/2024 9:00 AM [facility] Hospital Encounter [facility] Interventional Radiology [address] [place] [phone] Herve Carrillo MD [address] [facility] [address] [place] [phone] documented as of this encounter Visit Diagnoses Not on filedocumented in this encounter Additional Health Concerns Assessment Noted Time PHQ-9 Depression Total Score: 0 12/06/19 18 3:00 PM EDT documented as of this encounter Care Teams Mail Carrier Relationship Specialty Start Date End Date Edgar Fournier MD [address] [place] [id number] PCP - General 08/18/17 06/23/21 Maile Valles, JANA Txp Post Coordinator Transplant Hepatology 11/07/17 Jack Ordoñez MD [address] [place] [phone] Consulting Physician Transplant Hepatology 01/05/18 Estephania Sharif, PharmD Pharmacist Pharmacist 11/11/19 documented as of this encounter
--- OUTSIDE RECORDS SUMMARY | 2024-07-12 12:43 | XMS_ITS | Encounter Summary ---
Author Organization [facility] Address [address] [place] [address] Care Team Providers Care Yoghurt Maker Name Role Phone Edgar Fournier MD Primary Care Provider [phone] Maile Valles RN Unavailable Unavail able Jack Ordoñez MD Unavailable [phone] Estephania Sharif PharmD Unavailable Christine vailable [...] release of HIV test results or diagnoses. [id number] Health Encounter Details Date Type Department Care Team (Late st Contact Info) Description 04/07/2020 Orders Only [facility] Transplant Related Interdisciplinary Metabolic Surgery at [facility] [address] [facility] [address] [place] [address] Jen Beasley, RN [address] [facility]. [address] [address] Social History Tobacco Use Types [...] [facility] Interventional Radiology [address] [place] [phone] Herve Carrillo MD [address] [facility] [address] [facility] [place] [address] documented as of this encounter Visit Diagnoses Not on filedocumented in this encounter Additional Health Concerns Assessment Noted Time PHQ-9 Depression Total Score: 0 12/06/19 18 3:00 PM EDT documented as of this encounter Care Teams Yoghurt Maker Relationship Specialty Start Date End Date Edgar Fournier MD [address] [place] [address] [place] [address] PCP - General 08/18/17 06/23/21 Maile Valles, RN Txp Post Coordinator Transplant Hepatology 11/07/17 Jack Ordoñez MD [address] [place] [phone] Consulting Physician Transplant Hepatology 01/05/18 Estephania Sharif, PharmD Pharmacist Pharmacist 11/11/19 documented as of this encounter
--- OUTSIDE RECORDS SUMMARY | 2024-07-12 12:43 | XMS_ITS | Encounter Summary ---
Author Organization [facility] Address [facility] [place] [address] Care Team Providers Care Humanities Instructor Name Role Phone Edgar Fournier MD Primary Care Provider [phone] Maile Valles RN Unavailable Unavail able Jack Ordoñez MD Unavailable [phone] Estephania Sharif PharmD Unavailable Christine vailable [...] release of HIV test results or diagnoses. [id number] Reason for Visit * Reason Comments Pre-op Exam * Auth/Cert Specialty Diagnoses / Procedures Referred By Contact Referred To Contact Pre-Admission Testing [facility] Perioperative Care at [address] [address] Phone: tel: fax: Referral ID Status Reason Start Date Expiration Date Visits Re quested Visits Authorized [id number] 1 1 Encounter Details Date Type Department Care Team (Late st Contact Info) Description 03/12/2020 11:00 AM EDT Office Visit [facility] Perioperative Care at [facility] [address] [place] [address] Mary Jo Simeon NP [address] [id number] S/P liver transplant ([facility]) (Primary Dx); Essential hypertension; Gastroesophageal reflux disease, esophagitis presence not specified; CKD (chronic kidney disease) stage 3, GFR 30-59 ml/min ([facility]); Type 2 diabetes 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, with long-term current use of insulin ([facility]); Anemia, unspecified type; Liver replaced by transplant ([facility]); Encounter for therapeutic drug monitoring; ESRD (end stage renal disease) on dialysis ([facility]); Pulmonary hypertension ([facility]) Social History Tobacco Use [...] Sign Reading Time Taken Comments Blood Pressure 170/76 03/12/2020 11:03 AM EDT Pulse 92 03/12/2020 11:03 AM EDT Temperature 36.3 ??C (97.4 ??F) 03/12/2020 11:03 AM E DT Respiratory Rate 16 03/12/2020 11:03 AM EDT Oxygen Saturation 98% 03/12/2020 11:03 AM EDT Inhaled Oxygen Concentration 98% 03/12/2020 1 1:03 AM EDT Weight 126.1 kg (278 lb) 03/12/2020 11:03 AM EDT Height 170.2 cm (5' 7 ) 03/12/2020 11:03 AM EDT Body Mass Index 43.54 03/12/2020 11:03 AM EDT documented in this encounter Patient Instructions * Patient Instructions* Mary Jo Simeon NP - 03/12/2020 11:00 AM EDT Pre-Procedure Instructions We???re pleased that you have chosen [facility] for your upcoming procedure. The staffserving you is professionally trained to provide the highest quality care. We encourage you to ask questions and to let the staff know your special needs. We want your visit to be as comfortable as possible. Your procedure is scheduled on 04/09/2020 at 1100 AM. Please arrive at 900 AM at: [facility] on the second floor of the [facility] ??? DO NOT EAT OR DRINK ANYTHING (including gum, mints, water, etc.) after midnight the night before your procedure. You may brush your teeth and gargle on the morning of surgery, but do not swallow any water. You may take the following medications with a small sip of water: 1. Cyclosporine 2. Famotidine 3. Hydralazine 4. Gabapentin 5. cellcept 6. nifedipine No aleve, naproxen, advil, meloxicam, voltaren, motrin, or ibuprofen 7 days prior to surgery. Please stop supplements 7 days prior to surgery. Bring your Bipap machine morning of surgery Have dialysis the day prior to surgery ??? Please make transportation arrangements and bring a responsible adult to accompany you home kendalin with you for 24 hours. ??? Leave valuables (money, jewelry, credit cards) at home. If you wear glasses or contacts, bring a case for safekeeping. ??? Wear casual, loose fitting, and comfortable clothing. A gown will be provided. If you are staying overnight, bring a small overnight bag. (Storage space is limited.) ??? Please remove all makeup, jewelry, body piercings, powder, perfume, and nail divehi before you arrive. ??? Bring a list of your medications and dose including herbal and apaj-oto-yaawucz medications. Donot bring any pills or medications to the hospital. (Exception: transplant patients.) ??? Bring a photo ID and your insurance card so we can bill your insurance company directly. ??? Please do not bring any children under the age of 14 to the hospital. ??? Do not shave in the area of the surgery for 2 days prior to surgery. If needed, a trained staffmember will clip the area immediately before your surgery. ??? Quit smoking as far in advance of surgery as possible. Patients who quit at least 30 days before surgery may have better outcomes. ??? If you are diabetic, pay close attention to your blood sugar and try to keep it in the range your doctor wants it to be in. If you have low blood sugar prior to coming in to the hospital you may drink a small amount of CLEAR SUGAR- CONTAINING FLUIDS WITHOUT PULP SUCH APPLE JUICE OR CLEAR SODA. Depending on the procedure you are having this could impact the timing of your surgery. ??? Discuss discontinuing herbal medications with your doctor before surgery. ??? Please shower at home the evening before and the morning of surgery using an antiseptic agent, if provided, or soap and water. ??? If you suspect that you have an infection prior to surgery, contact your doctor and surgeon prior to surgery. Also tell the pre-surgery nurse on the day of surgery. Additional instructions Contact information: [facility], Monday - Monday 8:30 am - 5:00 pm [facility], - Monday 8:30 am - 5:00 pm documented in this encounter Progress Notes * Mary Jo Simeon NP - 03/12/2020 11:00 AM EDTAddended by: MARY JO SIMEON on: 03/12/2020 02:26 PM Modules accepted: Orders, SmartSet * NAVNEET Xie - 03/12/2020 11:00 AM EDTAddended by: WESLEY PERRY on: 03/12/2020 03:09 PM Modules accepted: Orders, SmartSet documented in this encounter H&P Notes * Mary Jo Simoen NP - 03/12/2020 11:00 AM EDT Images from the original note were not included. ANESTHESIOLOGY CONSULTATION AND PRE-OPERATIVE HISTORY AND PHYSICAL Subjective: [facility] Attending Physician: Other: Dr. Johnson [facility] SEE SUPERVISOR / PA: Mary Jo Simeon CNP Date of Surgery: 04/09/2020 Surgeon: Dr. Shipley Diagnosis: Morbid obesity Procedure: Laparoscopic sleeve gastrectomy Patient ID: Aiden Stauffer Jr. is a 45 y.o. male. Patient is being seen today at the request of Dr. Shipley to render an opinion on perioperative risk optimization and to coordinate medical care as necessary prior to the following procedure: Laparoscopic sleeve gastrectomy. Chief Complaint Patient presents with ??? Pre-op Exam History of Present Illness: 45 yo male with ESRD on HD M,T,TH,F,S at home via right chest tunneled dialysis catheter since 07/2019. Currently not a candidate for transplant due to BMI. Body mass index is 43.54 kg/m??. He is nowscheduled for a laparoscopic sleeve gastrectomy Chronic Medical Conditions, Severity, Optimization: 1. Pulmonary hypertension: echo 07/22/2019 showed PA systolic pressure of 50 mmHg, right ventricle systolic function was normal, right atrium mildly dilated. 2. Hypertension: taking hydralazine TID, clonidine as needed on dialysis days, nifedipine, doxazosin nightly. 3. ESRD: on HD M,T,TH,F,S at home via right chest tunneled dialysis catheter since 07/2019. Currently not a candidate for transplant due to BMI. Pt will do home dialysis the day prior to surgery 4. Anemia: H&H 8.9/26.2 from 01/27/2020. 5. Diabetes Type II: Hgb A1C 6.9 from 01/27/2020. Average fasting glucose 150. Taking Humulin 48 units AM and 24 units nightly as needed and victoza as needed. 6. GERD: taking famotidine. 7. Neuropathy: taking gabapentin and tegretol nightly 8. S/p orthotopic liver transplant: in 09/2017 due to SAL cirrhosis. Received high risk donor therefore will be on lifelong entecavir. Taking cyclosporine and cellcept. Managed by [facility], last office visit 12/19/2019 9. Hearing loss: bilateral, he is not wearing his hearing aids today. 10. JC: using Bipap machine nightly 11. Obesity: Body mass index is 43.54 kg/m??. Pérez Activity Scale: 4 - Raking leaves; weeding or pushing a power mower. Medical History: Past Medical History: Diagnosis Date [...] ??? Sleep apnea ??? Vitamin D deficiency Surgical History: Past [...] PROCEDURE 10/2016 ??? TIPS Revision 04/2017 Family History: Family History Problem Relation Age [...] file Gets together: Not on file Attends scientology service: Not on file Active member of [...] Social History Narrative ??? Not on file Allergies: Allergies Allergen Reactions ??? Codeine Sulfate Hyper ??? Codeine Other (See Comments) Becomes hyper Medications: Prior to Admission medications taking for visit date 03/12/20 Medication Sig Taking? Authorizing Provider aspirin 81 MG chewable tablet Chew 1 tablet (81 mg total) by mouth daily with breakfast. Yes Bere Feng CNP carBAMazepine (TEGRETOL) 200 mg tablet Take 200 mg by mouth at bedtime. Yes Historical Provider, cloNIDine HCl (CATAPRES) 0.1 MG tablet Take 1 tablet (0.1 mg total) by mouth 2 times a day. Patient taking differently: Take 0.1 mg by mouth if needed. Yes Keon Qureshi MD cycloSPORINE modified (NEORAL) 25 MG capsule Take 2 capsules (50 mg total) by mouth 2 times a day. Yes Jack Ordoñez MD doxazosin (CARDURA) 8 MG tablet 8 mg 2 times a day. Yes Historical Provider, entecavir (BARACLUDE) 0.5 MG tablet Take 1 tablet (0.5 mg total) by mouth every 7 days. Yes MD Junaid ergocalciferol (VITAMIN D2) 50,000 unit capsule Take 50,000 Units by mouth. Twice a week Yes Historical Provider, famotidine (PEPCID) 20 MG tablet Take 20 mg by mouth daily. Yes Historical Provider, gabapentin (NEURONTIN) 100 MG capsule Take 4 capsules (400 mg total) by mouth daily. Yes Malinda Rhodes MD hydrALAZINE (APRESOLINE) 50 [...] 24 units in the PM as needed Yes Malinda Rhodes MD liraglutide (VICTOZA 2-GALI) 0.6 mg/0.1 mL (18 mg/3 mL) PnIj Inject 1.8 mg subcutaneously daily. YesHistorical Provider, mycophenolate (CELLCEPT) 250 mg capsule Take 1 capsule (250 mg total) by mouth 2 times a day. Yes Jack Ordoñez MD NIFEdipine (PROCARDIA-XL) 90 MG (OSM) 24 hr tablet Take 90 mg by mouth 2 times a day. Yes Historical Provider, ondansetron (ZOFRAN-ODT) 4 MG disintegrating tablet every 8 hours as needed. Yes Historical Provider, polyethylene glycol (MIRALAX) 17 gram packet Take 17 g by mouth 2 times a day as needed. Yes Niurka Valles MD blood sugar diagnostic Strp Use to test blood sugar up to 4 times a day. Diagnosis for use: E 9.65.For use with One Touch Verio meters. Bere Feng CNP blood-glucose meter (ONETOUCH VERIO SYSTEM) [facility] Use as instructed. Bere Feng CNP lancets (ONETOUCH DELICA LANCETS) 33 gauge Mis Use 1 strip as directed 4 times daily before meals and at bedtime. Bere Feng CNP pen needle, diabetic 32 gauge x 5/32 Ndle Use as directed to inject insulin 4 times daily. Carito Feng CNP carvedilol (COREG) 25 MG tablet Take 2 tablets (50 mg total) by mouth 2 times a day with meals. Bere Feng CNP Review of Systems Constitutional: Positive for fatigue. Negative for activity change, appetite change, chills, diaphoresis and fever. HENT: Positive for hearing loss (bilateral ). Negative for sore throat and trouble swallowing. Eyes: Negative for pain, discharge, redness, itching and visual disturbance. Respiratory: Positive for apnea (using bipap machine nightly ) and shortness of breath (only prior to dialysis- post dialysis no SOB ). Negative for cough, choking and wheezing. Cardiovascular: Positive for leg swelling (chronic ). Negative for chest pain and palpitations. Denies orthopnea Gastrointestinal: Positive for nausea (with dialysis ). Negative for abdominal distention, abdominal pain, constipation, diarrhea and vomiting. Genitourinary: Positive for decreased urine volume. On HD Musculoskeletal: Negative for back pain, gait problem, joint swelling, neck pain and neck stiffness. Skin: Negative for color change, rash and wound. Neurological: Negative for dizziness, tremors, seizures, syncope, weakness and light-headedness. Hematological: Bruises/bleeds easily (bruises easily). Psychiatric/Behavioral: Negative for sleep disturbance. The patient is not nervous/anxious. Objective: Blood pressure 170/76, pulse 92, temperature 97.4 ??F (36.3 ??C), temperature source Temporal, resp. rate 16, height 5' 7 (1.702 m), weight (!) 278 lb (126.1 kg), SpO2 98 %. Physical Exam Vitals signs reviewed. Constitutional: General: He is not in acute distress. Appearance: Normal appearance. He is obese. HENT: Head: Normocephalic and atraumatic. Right Ear: External ear normal. Decreased hearing noted. Left Ear: External ear normal. Decreased hearing noted. Nose: Nose normal. No congestion. Mouth/Throat: Mouth: Mucous membranes are moist. Pharynx: Oropharynx is clear. No oropharyngeal exudate or posterior oropharyngeal erythema. Eyes: General: Right eye: No discharge. Left eye: No discharge. Conjunctiva/sclera: Conjunctivae normal. Neck: Musculoskeletal: Normal range of motion and neck supple. Normal range of motion. No muscular tenderness. Thyroid: No thyroid mass. Vascular: No carotid bruit. Trachea: Trachea normal. Cardiovascular: Rate and Rhythm: Normal rate and regular rhythm. Pulses: Normal pulses. Heart sounds: Normal heart sounds. No murmur. Pulmonary: Effort: Pulmonary effort is normal. Breath sounds: Normal breath sounds. No wheezing, rhonchi or rales. Chest: Abdominal: General: Abdomen is flat. Bowel sounds are normal. Palpations: Abdomen is soft. There is no mass. Tenderness: There is no abdominal tenderness. Hernia: No hernia is present. Musculoskeletal: Normal range of motion. General: No tenderness, deformity or signs of injury. Right lower leg: Edema (trace) present. Left lower leg: Edema (trace) present. Lymphadenopathy: Cervical: No cervical adenopathy. Skin: General: Skin is warm and dry. Coloration: Skin is not jaundiced. Findings: No erythema. Nails: There is no clubbing. Neurological: Mental Status: He is alert and oriented to person, place, and time. Mental status is at baseline. Motor: No weakness. Coordination: Coordination normal. Psychiatric: Mood and Affect: Mood normal. Speech: Speech normal. Behavior: Behavior normal. Thought Content: Thought content normal. Cognition and Memory: Cognition and memory normal. Judgment: Judgment normal. Airway: Mallampati IV (only hard palate visible), Thyromental distance 3 finger breadths, opening 3finger breadths Lab Review: Lab Results Component Value Date WBC 4.9 01/27/2020 HGB 8.9 (L) 01/27/2020 HCT 26.2 (L) 01/27/2020 MCH 31.6 01/27/2020 PLT 239 01/27/2020 GLUCOSE 92 01/27/2020 CREATININE 6.23 (H) 01/27/2020 CREATININE 3.9 04/03/2019 NA 138 01/27/2020 K 3.7 01/27/2020 CL 100 01/27/2020 CO2 26 01/27/2020 LDH 340 (H) 07/20/2019 BILITOT 0.4 01/27/2020 PROT 6.8 01/27/2020 AST 14 01/27/2020 ALT 14 01/27/2020 ALKPHOS 113 01/27/2020 CHOLTOT 236 (H) 01/27/2020 LDL 143 01/27/2020 HDL 32 (L) 01/27/2020 TRIG 303 (H) 01/27/2020 PROTIME 15.0 07/19/2019 Study Results: PFTs 01/27/2020 Component 01/27/20 1251 FEV1 3.14 FEV1% 82 FVC 4.41 FVC% 91 FEV1/FVC 71 FEV1/FVC EXP 79 RESPONSE TO BRONCHODILATOR 1% FVC, 1% FEV1 Spirometry is normal No response to bronchodilator ECHO 07/22/2019 Study Conclusions - Left ventricle: The cavity [...] the right atrial pressure ?was 15 mmHg. Stress test 05/07/2018 FINAL INTERPRETATION Abnormal study with apical to basal inferior wall mixed ischemia and scar. The left ventricle is moderately dilated. Overall study quality is good. There is a study artifact related to diaphragmatic attenuation Scan significance indicates moderate cardiac risk. Test sensitivity is reduced with testing on anti-anginal drugs. ?? Summary report to [place] in Dr. Fournier's office. Final report faxed to Dr. Fournier's office. ?? PERFUSION FINDINGS There is a medium sized [...] abnormal: 4-8, severely abnormal: greater than 8). ?? The right ventricle is dilated. ?? FUNCTION FINDINGS The calculated left ventricular ejection fraction at rest is mildly reduced at 46% with an end diastolic volume of 167 mL and end systolic volume of 91 mL. ?? The post-stress ejection fraction is normal at 51% with an end diastolic volume of 190 mL and end systolic volume of 94 mL. Left ventricular regional wall motion is normal. [facility] 06/05/2018 CORONARY ARTERIES: 1. The coronary circulation is right dominant. 2. The left main bifurcates normally into the LAD and circumflex. Left main: ??Normal. LAD: ??Normal. Left circumflex: ??Normal. Medium-sized. Right coronary: ??Normal. Large. IMPRESSIONS: ??There is no evidence of coronary artery disease. Mild pulmonary hypertension with borderline transpulmonary gradient and mildy elevated PCWP and LVEDP RECOMMENDATIONS: ??Follow up with outpatient cardiology clinic for medical optimization Screening for JC and other causes for pulmonary hypertension Lifestyle modification including weight loss. ?? ASA Physical Status: ASA Physical Status: 3 Assessment and Recommendations: 45 yo male with morbid obesity for a laparoscopic sleeve gastrectomy under GA. Concurrent medical issues include: 1. Cardiac risk: No CAD. Underwent stress test on 05/07/2018 showing mixed ischemia and scar. LHC was completed on 06/06/2018 with no evidence of coronary artery disease, mild pulmonary HTN. ECHO 07/22/2019 showed mild LVH, EF 50-55%, no regional wall motion abnormalities, grade 2 diastolic dysfunction, left atrium is mildly dilated, right atrium is mildly dilated, PA systolic pressure moderately increased 50 mmHg. Denies chest pain. Denies orthopnea. Chronic mild edema and SOB typically prior todialysis. He is able to walk for 20-30 minutes and climb a flight of stairs without symptoms. Last seen by Cardiology in 2018. Pt will need to see Cardiology prior to surgery. Appointment scheduled for 03/16/[address] Haynes at [facility]. Pt is unsure if he will go to appointment. I will follow up with pt tomorrow. 1a. Pulmonary hypertension: echo 07/22/2019 showed PA systolic pressure of 50 mmHg, right ventricle systolic function was normal, right atrium mildly dilated. 2. Hypertension: taking hydralazine TID, clonidine as needed on dialysis days, nifedipine, doxazosin nightly. BP today Instructed to take hydralazine and nifedipine AM of OR. 3. ESRD: on HD M,T,TH,F,S at home via right chest tunneled dialysis catheter since 07/2019. Currently not a candidate for transplant due to BMI. Pt will do home dialysis the day prior to surgery. K+ and BMP ordered for AM of OR. 4. Anemia: H&H 8.9/26.2 from 01/27/2020. CBC and T&S obtained today. 5. Diabetes Type II: Hgb A1C 6.9 from 01/27/2020. Average fasting glucose 150. Taking Humulin 48 units AM and 24 units nightly as needed and victoza as needed. 6. GERD: taking famotidine. Instructed to take AM of OR. 7. Neuropathy: taking gabapentin and tegretol nightly. Instructed to take gabapentin AM of OR. 8. S/p orthotopic liver transplant: in 09/2017 due to SAL cirrhosis. Received high risk donor therefore will be on lifelong entecavir. Taking cyclosporine and cellcept. Managed by [facility], last office visit 12/19/2019. Instructed to take cellcept and cyclosporine AM of OR. 9. Hearing loss: bilateral, he is not wearing his hearing aids today. 10. JC: using Bipap machine nightly 11. Obesity: Body mass index is 43.54 kg/m??. COVID testing scheduled on 04/06/2020 at 1100. Pt aware of time, date, location of appointment. Visitor policy reviewed and handout given at time of DISPLAY ARTIST appointment. Renal, hepatic, cbc with diff, Hgb A1c, thyroid function reviewed from 01/27/2020 Preoperative instructions reviewed with patient. Patient verbalizes understanding. Labs obtained today: T&S Mary Jo Simeon CNP Attending Attestation and Medical Decision Making I personally saw and examined this patient along with Mary Jo Simeon CNP. I have reviewed the abovenote as well as relevant laboratory data, imaging data and pertinent elements of the patient???s medical record. I discussed any and all anesthetic considerations and concerns with the patient duringmy conversation with them. Attending brief summary: 45yo male s/p OLT, hx of pulm hypertension, ESRD on iHD, diabetes, JC (not fully compliant with BiPAP), and HTN. Patient was refused this operation at another hospital due to discomfort of the surgeon with patient's cardiac history and lack of follow up. Patient apparentlycalled [facility] plastics cutter to get surgical clearance and was told he needed to be seen in person as he hadnot been back to [facility] in nearly two years. I advised the patient that it is common to obtain cardiac clearance before sleeve gastrectomy, especially in a high risk patient, which he is given his pulmonary HTN. Patient expressed his displeasure at this requirement and it is unclear if he will attend the appointment we made for him on 03/16/2020 (surgery date is 04/09/2020). Recommendations for upcoming procedure include: Type of Anesthetic: GA-ETT IV Access: PIV x2 Monitors: Standard, consider arterial line Analgesia: Multimodal Postoperative Disposition: PACU Special considerations for this patient and their upcoming procedure include: 1. Pulmonary HTN - standard anesthetic management (avoid hypoxia, hypercapnia, etc) 2. ESRD - judicious fluid administration. Patient dialyzes at home 5 days a week and frequently takes up to 3 liters off each time 3. OLT - immunosuppressed; maximum sterile technique If patient refuses to see cellular plastics cutter prior to operation and obtain any studies that may be ordered (i.e. repeat echo or cath), he has been advised that this elective surgery will likely be cancelled/postponed on the day of surgery. The patient and/or family member present verbalized understanding of surgery and anesthetic plan and agree to proceed. I provided answers to all of their questions. I have communicated my recommendations for the perioperative care of this patient with the surgeon through a shared EMR. Juvencio Johnson M.D. [facility] Addendum Pt was seen on 03/16/2020, note is not completed. Will follow up once note is completed. -- Mary Jo Simeon CNP 03/18/2020 1035 Addendum Epic communication from Dr. Haynes below: MD Marcelino Larose Jr., MD; Mary Jo Simeon NP; Lyly Lazo RN ?? Thank you. No specific concern. ??We needed an up to date evaluation of his pulmonary HTN. ??This will sufficeand we will clear him to proceed with gastric sleeve. Juvencio Johnson M.D. [facility] Medicine Previous Messages ----- Message ----- From: Marcelino Haynes Jr., MD Sent: 03/20/2020 ??12:52 PM EDT To: Juvencio Johnson MD, Lyly Lazo RN Subject: cardiac clearance ? I saw Mr. Stauffer in clinic. He has mild pulmonary hypertension with normal RV function and no significant functional limitations. He is acceptable risk from a cardiac standpoint to have gastric sleeve. Where there any concerns from your standpoint? I spoke with pt directly. Plan is to proceed as scheduled. -- Mary Jo Simeon CNP 03/20/2020 [id number] documented in this encounter Plan of Treatment Upcoming Encounters Date Type Department Care Team (Late st Contact Info) Description 07/15/2024 9:00 AM EST Hospital Encounter [facility] Interventional Radiology [address] [place] [address] Herve Carrillo MD [address] [facility] [address] [place] [address] documented as of this encounter Procedures Procedure Name Priority Date/Time Associated Diagnosis Comments ANTIBODY IDENTIFICATION Routine 03/12/2020 1:55 PM EDT Pulmonary hypertension (CMS-HCC) ELIUD ANTI-IGG Routine 03/12/2020 1:54 PM EDT Pulmonary hypertension (CMS-HCC) HEPATIC FUNCTION PANEL Routine 0 11:58 AM EDT Liver replaced by transplant (CMS-HCC) Encounter for therapeutic drug monitoring RENAL FUNCTION PANEL W/EGFR Routine 03/12/2020 11:58 AM EDT Liver replaced by transplant (CMS-HCC) Encounter for therapeutic drug monitoring CYCLOSPORINE LEVEL Routine 03/12/2020 11 :58 AM EDT Liver replaced by transplant (CMS-HCC) Encounter for therapeutic drug monitoring ABO/RH STAT 03/12/2020 11:58 AM EDT S/P liver transplant (CMS-HCC) DIFFERENTIAL Routine 03/12/2020 11:58 AM EDT Liver replaced by transplant (CMS-HCC) Encounter for therapeutic drug monitoring CBC Routine 03/12/2020 11:58 AM EDT Liver replaced by transplant (CMS-HCC) Encounter for therapeutic drug monitoring ANTIBODY SCREEN STAT 03/12/2020 11:58 AM EDT S/P liver transplant (CMS-HCC) documented in this encounter Results * Antibody identification (03/12/2020 1:55 PM EDT) Pathologist [facility] Antibody Id. #1 Anti-C 03/12/2020 1:55 PM EDT [facility] Antibody Id. #2 Anti-D 03/12/2020 1:55 PM EDT [facility] Blood specimen (specimen) 03/12/2020 1:55 PM EDT 03/12/2020 1:55 PM EDT Mary Jo Simeon SEE SUPERVISOR BLOOD BANK TEST ORDERABLES Final Result Performing Organization Address City/[facility]/ZIP Co de Phone Number [facility] [address] [facility]. [address] * ELIUD Anti-IgG (03/12/2020 1:54 PM EDT) Pathologist [facility] ELIUD IgG Negative 03/12/2020 1:54 PM EDT [facility] Blood specimen (specimen) 03/12/2020 1:54 PM EDT 03/12/2020 1:54 PM EDT Mary Jo Simeon SEE SUPERVISOR BLOOD BANK TEST ORDERABLES Final Result Performing Organization Address City/[facility] Co de Phone Number [facility] [address] * (ABNORMAL) Cyclosporine level (03/12/2020 11:58 AM EDT) Pathologist [facility] Cyclosporine, Blood 95(L) 100 - 400 ng/mL 03/12/2020 1:02 PM EDT [facility] Comment: Detection limit: ??30 ng/mL. ??Performed via chemiluminescent microparticle immunoassay on the [employer] i1000. Whole blood specimen (specimen) 03/12/2020 11:58 AM EDT 03/12/2020 12:04 PM EDT Narrative [facility] - 03/12/2020 1:02 PM EDT [facility] labs. Fax all results to [phone]. Call critical values to [phone]. Jack Ordoñez MD LAB BLOOD ORDERABLES Final Re sult [facility] [address] [place] [address], [facility] * (ABNORMAL) CBC (03/12/2020 11:58 AM EDT) WBC 5.9 3.8 - 10.8 10E3/uL 03/12/2020 12:12 PM EDT [facility] RBC 3.49(L) 4.20 - 5.80 10E6/uL 03/12/2020 12:12 PM EDT [facility] Hemoglobin 11.6(L) 13.2 - 17.1 g/dL 03/12/2020 12:12 PM EDT [facility] Hematocrit 33.6(L) 38.5 - 50.0 % 03/12/2020 12:12 PM EDT [facility] MCV 96.3 80.0 - 100.0 fL 03/12/2020 12:12 PM EDT [facility] MCH 33.3(H) 27.0 - 33.0 pg 03/12/2020 12:12 PM EDT [facility] MCHC 34.6 32.0 - 36.0 g/dL 03/12/2020 12:12 PM EDT [facility] RDW 14.8 11.0 - 15.0 % 03/12/2020 12:12 PM EDT [facility] Platelets 242 140 - 400 10E3/uL 03/12/2020 12:12 PM EDT [facility] MPV 6.9(L) 7.5 - 11.5 fL 03/12/2020 12:12 PM EDT [facility] Whole blood specimen (specimen) 03/12/2020 11:58 AM EDT 03/12/2020 12:04 PM EDT Narrative [facility] - 03/12/2020 12:12 PM EDT Standing labs. Fax all results to [phone]. Call critical values to [phone]. Jack Ordoñez MD LAB BLOOD ORDERABLES Final Re sult [facility] [address] [place] [address], [facility] [place] * Differential (03/12/2020 11:58 AM EDT) Scan Result PERFORMED 03/12/2020 2:14 PM EDT [facility] Neutrophils Relative 59.5 40.0 - 80.0 % 03/12/2020 2:14 PM EDT [facility] Lymphocytes Relative 29.8 15.0 - 45.0 % 03/12/2020 2:14 PM EDT [facility] Monocytes Relative 8.8 0.0 - 12.0 % 03/12/2020 2:14 PM EDT [facility] Eosinophils Relative 1.8 0.0 - 8.0 % 03/12/2020 2:14 PM EDT [facility] Basophils Relative 0.1 0.0 - 1.0 % 03/12/2020 2:14 PM EDT [facility] nRBC 0 0 - 0 /100 WBC 03/12/2020 2:14 PM EDT [facility] Neutrophils Absolute 3,511 1,500 - 7,800 /uL 03/12/2020 2:14 PM EDT [facility] Lymphocytes Absolute 1,758 850 - 3,900 /uL 03/12/2020 2:14 PM EDT [facility] Monocytes Absolute 519 200 - 950 /uL 03/12/2020 2:14 PM EDT [facility] Eosinophils Absolute 106 15 - 500 /uL 03/12/2020 2:14 PM EDT [facility] Basophils Absolute 6 0 - 200 /uL 03/12/2020 2:14 PM EDT [facility] Whole blood specimen (specimen) 03/12/2020 11:58 AM EDT 03/12/2020 12:04 PM EDT [facility] - 03/12/2020 2:14 PM EDT Standing labs. Fax all results to [phone]. Call critical values to [phone]. us Jack Ordoñez MD LAB BLOOD ORDERABLES Final Re sult [facility] [address] [place] [address], [facility] [place] * Hepatic Function Panel (03/12/2020 11:58 AM EDT) Total Bilirubin 0.4 0.0 - 1.5 mg/dL 03/12/2020 12:32 PM EDT [facility] Bilirubin, Direct 0.09 0.00 - 0.40 mg/dL 03/12/2020 12:32 PM EDT [facility] AST 13 13 - 39 U/L 03/12/2020 12:32 PM EDT [facility] ALT 14 7 - 52 U/L 03/12/2020 12:32 PM EDT [facility] Alkaline Phosphatase 112 36 - 125 U/L 03/12/2020 12:32 PM EDT [facility] Total Protein 7.8 6.4 - 8.9 g/dL 03/12/2020 12:32 PM EDT [facility] Albumin 4.5 3.5 - 5.7 g/dL 03/12/2020 12:32 PM EDT [facility] Bilirubin, Indirect 0.31 0.00 - 1.10 mg/dL 03/12/2020 12:32 PM EDT [facility] Plasma specimen (specimen) 03/12/2020 11:58 AM EDT 03/12/2020 12:04 PM EDT [facility] - 03/12/2020 12:32 PM EDT Standing labs. Fax all results to [phone]. Call critical values to [phone]. Jack Ordoñez MD LAB BLOOD ORDERABLES Final Re sult [facility] [address] * (ABNORMAL) Renal Function Panel w/EGFR (03/12/2020 11:58 AM EDT) Sodium 138 133 - 146 mmol/L 03/12/2020 12:32 PM EDT [facility] Potassium 4.8 3.5 - 5.3 mmol/L 03/12/2020 12:32 PM EDT [facility] Chloride 101 98 - 110 mmol/L 03/12/2020 12:32 PM EDT [facility] CO2 24 21 - 33 mmol/L 03/12/2020 12:32 PM EDT [facility] Anion Gap 13 3 - 16 mmol/L 03/12/2020 12:32 PM EDT [facility] BUN 56(H) 7 - 25 mg/dL 03/12/2020 12:32 PM EDT [facility] Creatinine 8.79(H) 0.60 - 1.30 mg/dL 03/12/2020 12:32 PM EDT [facility] Glucose 138(H) 70 - 100 mg/dL 03/12/2020 12:32 PM EDT [facility] Calcium 8.8 8.6 - 10.3 mg/dL 03/12/2020 12:32 PM EDT [facility] Phosphorus 6.8(H) 2.1 - 4.7 mg/dL 03/12/2020 12:32 PM EDT [facility] Albumin 4.5 3.5 - 5.7 g/dL 03/12/2020 12:32 PM EDT [facility] Osmolality, Calculated 304 278 - 305 mOsm/kg 03/12/2020 12:32 PM EDT [facility] eGFR AA CKD-EPI 8 See note. 0 12:32 PM T [facility] Comment: As of 2015 the estimated GFR is calculated from serum creatinine using the Chronic Kidney Disease Epidemiology Collaboration (CKD-EPI) equation in patients 18 years and older. ??The reference range is >60 mL/min/1.73m2. ??eGFR values greater than 90 will be reported as >90mL/min/1.73m2. Reference: Neftali Castle Schmid CH, Ranulfo QUEZADA, Colten KEARNEY 3rd, Quan HI, et. al. A new equation to estimate glomerular filtration rate. ??[employer]. 2009:150(9):604-12 eGFR NONAA CKD-EPI 6 See note. 2019 12:32 PM EDT [facility] Comment: As of 2015 the estimated GFR is calculated from serum creatinine using the Chronic Kidney Disease Epidemiology Collaboration (CKD-EPI) equation in patients 18 years and older. ??The reference range is >60 mL/min/1.73m2. ??eGFR values greater than 90 will be reported as >90mL/min/1.73m2. Reference: Neftali Castle Schmid CH, Ranulfo QUEZADA, Colten AF, 3rd, Quan HI, et. al. A new equation to estimate glomerular filtration rate. ??[employer]. 2009:150(9):604-12 Plasma specimen (specimen) 03/12/2020 11:58 AM EDT 03/12/2020 12:04 PM EDT Narrative [facility] - 03/12/2020 12:32 PM EDT Standing labs. Fax all results to [phone]. Call critical values to [phone]. Jack Ordoñez MD LAB BLOOD ORDERABLES Final Re sult [facility] [address] * ABO/Rh (03/12/2020 11:58 AM EDT) ABO Grouping O 03/12/2020 12:38 PM EDT [facility] Rh Type Negative 03/12/2020 12:38 PM EDT [facility] Blood specimen (specimen) 03/12/2020 11:58 AM EDT 03/12/2020 12:07 PM EDT Mary Jo Simeon NP BLOOD BANK TEST ORDERABLES Final Result Performing Organization Address [facility] Co de Phone Number [facility] [address] [facility]. [address] * Antibody screen (03/12/2020 11:58 AM EDT) Antibody Screen Positive 03/12/2020 12:55 PM EDT [facility] Blood specimen (specimen) 03/12/2020 11:58 AM EDT 03/12/2020 12:07 PM EDT Narrative [facility] - 03/12/2020 1:10 PM EDT Testing performed by [facility] Transfusion Service Mary Jo Simeon NP BLOOD BANK TEST ORDERABLES Final Result Performing Organization Address City/[facility]/ZIP Co de Phone Number [facility] [address] [place] [address] documented in this encounter Visit Diagnoses Diagnosis S/P liver transplant ([facility])- Primary Essential hypertension Unspecified essential hypertension Gastroesophageal reflux disease, esophagitis presence not specified CKD (chronic kidney disease) stage 3, GFR 30-59 ml/min ([facility]) Chronic kidney disease, Stage III (moderate) Type 2 diabetes 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, with long-term current use of insulin ([facility]) Anemia, unspecified type Liver replaced by transplant ([facility]-H[facility]) Liver replaced by transplant Encounter for therapeutic drug monitoring ESRD (end stage renal disease) on dialysis ([facility]) End stage renal disease Pulmonary hypertension ([facility]) Other chronic pulmonary heart diseases documented in this encounter Additional Health Concerns Assessment Noted Time PHQ-9 Depression Total Score: 0 12/06/19 18 3:00 PM EDT documented as of this encounter Care Teams Humanities Instructor Relationship Specialty Start Date End Date Edgar Fournier MD [address] [place] [address] [place] [address] PCP - General 08/18/17 06/23/21 Maile Valles, JANA Txp Post Coordinator Transplant Hepatology 11/07/17 Jack Ordoñez MD [address] [place] [phone] Consulting Physician Transplant Hepatology 01/05/18 Estephania Sharif, Wilbert Pharmacist Pharmacist 11/11/19 documented as of this encounter
--- OUTSIDE RECORDS SUMMARY | 2024-07-12 12:43 | XMS_ITS | Encounter Summary ---
Author Organization [facility] Address [address] [place] [address] Care Team Providers Care Grease Man Name Role Phone Edgar Fournier MD Primary Care Provider [phone] Maile Valles RN Unavailable Unavail able Jack Ordoñez MD Unavailable [phone] Estephania Sharif PharmD Unavailable Christine vailable [...] release of HIV test results or diagnoses. [id number] Reason for Visit * Reason Comments Nutrition Counseling Encounter Details Date Type Department Care Team (Late st Contact Info) Description 03/10/2020 Telephone [facility] Transplant Related Interdisciplinary Metabolic Surgery at [facility] [address] [facility] [address] [place] [address] Amrita Mcclellan, GEOVANNA [address] [facility] [address] [place] [address] Nutrition Counseling Social History Tobacco [...] Telephone Encounter - Amrita Mcclellan RD - 03/10/2020 11:21 AM EDT Called pt to update dialysis clinic contact information. Pt provided location and phone number. Also reports he had lab work last week - plans to bring to visit tomorrow. Pt requested to have bariatric clinic address sent via [employer]. documented in this encounter Plan of Treatment Upcoming Encounters Date Type Department Care Team (Late st Contact Info) Description 07/15/2024 9:00 AM EST Hospital Encounter [facility] Interventional Radiology [address] [place] [phone] Herve Carrillo MD [address] [facility] 3[address] Surgery [place] [phone] documented as of this encounter Visit Diagnoses Not on filedocumented in this encounter Additional Health Concerns Assessment Noted Time PHQ-9 Depression Total Score: 0 12/06/19 18 3:00 PM EDT documented as of this encounter Care Teams Grease Man Relationship Specialty Start Date End Date Edgar Fournier MD [address] [place] [address] [place] [address] PCP - General 08/18/17 06/23/21 Maile Valles, RN Txp Post Coordinator Transplant Hepatology 11/07/17 Jack Ordoñez MD [address] [place] [phone] Consulting Physician Transplant Hepatology 01/05/18 Estephania Sharif, DarrianD Pharmacist Pharmacist 11/11/19 documented as of this encounter
--- OUTSIDE RECORDS SUMMARY | 2024-07-12 12:43 | XMS_ITS | Encounter Summary ---
Author Organization [facility] Address [address] [place] [address] Care Team Providers Care Road Builder Name Role Phone Edgar Fournier MD Primary Care Provider [phone] Maile Valles RN Unavailable Unavail able Jack Ordoñez MD Unavailable [phone] Estephania Sharif PharmD Unavailable Christine vailable [...] release of HIV test results or diagnoses. [id number] Encounter Details Date Type Department Care Team (Latest Contact Info) Description 03/11/2020 Travel Social History Tobacco Use Types Packs/Day [...] Encounter [facility] Interventional Radiology [address] [place] [phone] Herve Carrillo MD [address] [facility] 3[address] [place] [phone] documented as of this encounter Visit Diagnoses Not on filedocumented in this encounter Additional Health Concerns Assessment Noted Time PHQ-9 Depression Total Score: 0 12/06/19 18 3:00 PM EDT documented as of this encounter Care Teams Road Builder Relationship Specialty Start Date End Date Edgar Fournier MD [address] [place] [address] [place] [address] PCP - General 08/18/17 06/23/21 Maile Valles, JANA Txp Post Coordinator Transplant Hepatology 11/07/17 Jack Ordoñez MD [address] [place] [phone] Consulting Physician Transplant Hepatology 01/05/18 Estephania Sharif, DarrianD Pharmacist Pharmacist 11/11/19 documented as of this encounter
--- OUTSIDE RECORDS SUMMARY | 2024-07-12 12:43 | XMS_ITS | Encounter Summary ---
Author Organization [facility] Address [address] [place] [address] Care Team Providers Care Acid Changer Name Role Phone Edgar Fournier MD Primary Care Provider [phone] Maile Valles RN Unavailable Unavail able Jack Ordoñez MD Unavailable [phone] Estephania Sharif PharmD Unavailable Christine vailable [...] release of HIV test results or diagnoses. [id number] Reason for Visit * Reason Comments Results Encounter Details Date Type Department Care Team (Late st Contact Info) Description 01/28/2020 Telephone [facility] Liver Transplant at [address] [place] [phone] Maile Valles, JANA Results Social History [...] Telephone Encounter - Lyndsey Lozano RN - 02/13/2020 1:13 PM EDT Cyclo level 86 Routed to Txp Coordinator for communication. * Telephone Encounter - Anne Whitt MA - 01/28/2020 11:37 AM EDT Spoke to pt about his labs. Let him know that liver numbers are stable. He did ask about his hemoglobin level and I let him know that his coordinator stated it is lower than norm but stable for him. He asked what the result was and MA gave him the result. Pt states that the result is higher than when he was recently hospitalized. * Telephone Encounter - Maile Valles RN - 01/28/2020 7:40 AM EDT Labs from 01/27/20 reviewed. Cr 6.23 - Patient on HD. LFTs stable. Cyclosporine level pending - though drawn at 13:57, so not a trough. Additional labs collected for another provider. Will continue to monitor as per previously determined lab intervals. documented in this encounter Plan of Treatment Upcoming Encounters Date Type Department Care Team (Late st Contact Info) Description 07/15/2024 9:00 AM EST Hospital Encounter [facility] Interventional Radiology [address] [place] [phone] Herve Carrillo MD [address] [facility] 3200 [place] [phone] documented as of this encounter Visit Diagnoses Not on filedocumented in this encounter Additional Health Concerns Assessment Noted Time PHQ-9 Depression Total Score: 0 12/06/19 18 3:00 PM EDT documented as of this encounter Care Teams Acid Changer Relationship Specialty Start Date End Date Edgar Fournier MD [address] [place] [address] [place] [address] PCP - General 08/18/17 06/23/21 Maile Valles, JANA Txp Post Coordinator Transplant Hepatology 11/07/17 Jack Ordoñez MD [address] [place] [phone] Consulting Physician Transplant Hepatology 01/05/18 Estephania Sharif, DarrianD Pharmacist Pharmacist 11/11/19 documented as of this encounter
--- OUTSIDE RECORDS SUMMARY | 2024-07-12 12:44 | XMS_ITS | Encounter Summary ---
Author Organization Health Address [facility] [place] [address] Care Team Providers Care Pan Greaser Name Role Phone Edgar Fournier MD Primary Care Provider [phone] Maile Valles RN Unavailable Unavail able Jack Ordoñez MD Unavailable [phone] Source Comments This information has been disclosed [...] release of HIV test results or diagnoses. [id number] Health Encounter Details Date Type Department Care Team (Late st Contact Info) Description 10/11/2019 Chart Note [facility] [phone] Maile Valles, JANA Added IRD protocol to [place] tab. Social History Tobacco Use Types Packs/Day Years [...] Progress Notes * Maile Valles RN - 10/11/2019 3:23 PM EST Added IRD protocol to [place] tab. documented in this encounter Plan of Treatment Upcoming Encounters Date Type Department Care Team (Late st Contact Info) Description 07/15/2024 9:00 AM EST Hospital Encounter [facility] Interventional Radiology [address] [place] [phone] Herve Carrillo MD 3130 [facility] 3200 Surgery [place] [phone] documented as of this encounter Visit Diagnoses Not on filedocumented in this encounter Additional Health Concerns Assessment Noted Time PHQ-9 Depression Total Score: 0 12/06/19 18 3:00 PM EDT documented as of this encounter Care Teams Pan Greaser Relationship Specialty Start Date End Date Edgar Fournier MD [address] [place] [address] [place] [address] PCP - General 08/18/17 06/23/21 Maile Valles, JANA Txp Post Coordinator Transplant Hepatology 11/07/17 Jack Ordoñez MD [address] [place] [phone] Consulting Physician Transplant Hepatology 01/05/18 documented as of this encounter
--- OUTSIDE RECORDS SUMMARY | 2024-07-12 12:44 | XMS_ITS | Encounter Summary ---
Author Organization Health Address [facility] [place] [address] Care Team Providers Care Ic Designer Custom Name Role Phone Edgar Fournier MD Primary Care Provider [phone] Maile Valles RN Unavailable Unavail able Jack Ordoñez MD Unavailable [phone] Source Comments This information has been [...] release of HIV test results or diagnoses. [id number] Health Encounter Details Date Type Department Care Team (Late st Contact Info) Description 10/04/2019 Chart Note [facility] [phone] Joselin Stanley MA Received internal referral for this patient. Social History Tobacco Use Types Packs/Day Years [...] - Inhaled Oxygen Concentration - - Weight 126.1 kg (278 lb) 10/04/2019 7:00 AM EST Height 170.2 cm (5' 7 ) 10/04/2019 7:00 AM EST Body Mass Index 43.54 10/04/2019 7:00 AM EST documented in this encounter Progress Notes * Joselin Stanley MA - 10/04/2019 8:52 AM EST Received internal referral for this patient. Patients BMI is 43.6 Attempted to call patient twice to inform them that we did receive a referral, but cannot proceed until he meets our BMI criteria <40. Patient has already been referred to [facility]. No answer, no vm. documented in this encounter Plan of Treatment Upcoming Encounters Date Type Department Care Team (Late st Contact Info) Description 07/15/2024 9:00 AM EST Hospital Encounter [facility] Interventional Radiology [address] [place] [address] Herve Carrillo MD 3130 [facility] 3200 [place] [address] documented as of this encounter Visit Diagnoses Not on filedocumented in this encounter Additional Health Concerns Assessment Noted Time PHQ-9 Depression Total Score: 0 12/06/19 18 3:00 PM EDT documented as of this encounter Care Teams Ic Designer Custom Relationship Specialty Start Date End Date Edgar Fournier MD [address] [place] [address] [place] [address] PCP - General 08/18/17 06/23/21 Maile Valles, JANA Txp Post Coordinator Transplant Hepatology 11/07/17 Jack Ordoñez MD [address] [place] [phone] Consulting Physician Transplant Hepatology 01/05/18 documented as of this encounter
--- OUTSIDE RECORDS SUMMARY | 2024-07-12 12:44 | XMS_ITS | Encounter Summary ---
Author Organization [facility] Address [address] [place] [address] Care Team Providers Care Cigar Making Machine Operator Name Role Phone Edgar Fournier MD Primary Care Provider [phone] Maile Valles RN Unavailable Unavail able Jack Ordoñez MD Unavailable [phone] Source Comments This information has been [...] release of HIV test results or diagnoses. [id number] Reason for Visit * Reason Comments Medication Access Services Encounter Details Date Type Department Care Team (Late st Contact Info) Description 11/01/2019 Pharmacy Services [facility] [address] [place] [address] Elmira Hussein RXT Social History Tobacco Use Types Packs/Day [...] encounter Progress Notes * MERARY Palma - 11/01/2019 11:57 AM EDT MEDICATION ACCESS SERVICES Resent application for free Geng[employer] to [employer] Patient Assistance [employer]+. Patient insurance changed since original application. Patient no longer has a Medicare Part D plan and has Medicare Part A only. A zero income letter was included with application. Medication Access to monitor. Elmira Hussein Medication Access Services phone fax documented in this encounter Plan of Treatment Upcoming Encounters Date Type Department Care Team (Late st Contact Info) Description 07/15/2024 9:00 AM EST Hospital Encounter [facility] Interventional Radiology [address] [place] [phone] Herve Carrillo MD 3[address] [facility] 3[address] [place] [phone] documented as of this encounter Visit Diagnoses Not on filedocumented in this encounter Additional Health Concerns Assessment Noted Time PHQ-9 Depression Total Score: 0 12/06/19 18 3:00 PM EDT documented as of this encounter Care Teams Cigar Making Machine Operator Relationship Specialty Start Date End Date Edgar Fournier MD [address] [place] [address] [place] [address] PCP - General 08/18/17 06/23/21 Maile Valles, JANA Txp Post Coordinator Transplant Hepatology 11/07/17 Jack Ordoñez MD [address] [place] [phone] Consulting Physician Transplant Hepatology 01/05/18 documented as of this encounter
--- OUTSIDE RECORDS SUMMARY | 2024-07-12 12:44 | XMS_ITS | Encounter Summary ---
Author Organization [facility] Address [address] [place] [address] Care Team Providers Care Dropper Tank Storage Name Role Phone Edgar Fournier MD Primary Care Provider [phone] Maile Valles RN Unavailable Unavail able Jack Ordoñez MD Unavailable [phone] Estephania Sharif PharmD Unavailable Christine vailable [...] release of HIV test results or diagnoses. [id number] Encounter Details Date Type Department Care Team (Late st Contact Info) Description 11/26/2019 Abstract [facility] at [facility] [address] [place] [address] Joan Brady Social History Tobacco Use Types Packs/Day Years [...] Encounter [facility] Interventional Radiology [address] [place] [address] Herve Carrillo MD 3130 [facility] [address] [place] [address] documented as of this encounter Procedures Procedure Name Priority Date/Time Associated Diagnosis Comments CBC Routine 11/15/2019 CBC AND DIFFERENTIAL Routine 11/15/2019 documented in this encounter Results * (ABNORMAL) CBC (11/15/2019) Hemoglobin 11.3(A) 13.5 - 17.5 g/dL Hematocrit 35.1(A) 41 - 53 % MCH 31.3 26.0 - 34.0 pg MCV 97.2 82.0 - 108.0 fL WBC 4.2 10^3/mL Platelets 202 Whole blood specimen (specimen) Historical Provider LAB BLOOD ORDERABLES Yoselin l Result * CBC and differential (11/15/2019) Granulocytes: 53.6 Blood specimen (specimen) Historical Provider LAB BLOOD ORDERABLES Yoselin l Result documented in this encounter Visit Diagnoses Not on filedocumented in this encounter Additional Health Concerns Assessment Noted Time PHQ-9 Depression Total Score: 0 12/06/19 18 3:00 PM EDT documented as of this encounter Care Teams Dropper Tank Storage Relationship Specialty Start Date End Date Edgar [place] [address] PCP - General 08/18/17 06/23/21 Maile Valles, RN Txp Post Coordinator Transplant Hepatology 11/07/17 Jack Ordoñez MD [facility] [place] [phone] Consulting Physician Transplant Hepatology 01/05/18 Estephania Sharif, PharmD Pharmacist Pharmacist 11/11/19 documented as of this encounter
--- OUTSIDE RECORDS SUMMARY | 2024-07-12 12:44 | XMS_ITS | Encounter Summary ---
Author Organization Health Address [facility] [place] [address] Care Team Providers Care Belt Loop Cutter Name Role Phone Edgar Fournier MD Primary Care Provider [phone] Maile Valles RN Unavailable Unavail able Jack Ordoñez MD Unavailable [phone] Source Comments This information has been [...] release of HIV test results or diagnoses. [id number] Health Encounter Details Date Type Department Care Team (Late st Contact Info) Description 09/26/2019 Telephone [facility] Liver Transplant at Outpatient [address] [address] Lynnette Muhammad MA Social History Tobacco Use [...] Telephone Encounter - Anne Whitt MA - 09/26/2019 8:54 AM EST Contacted patient. He had called because all of her labs were not back when he was in clinic and wanted to be sure that they were all WNL, specifically creatinine, cyclosporine, and viral studies. MAlet him know all were normal. documented in this encounter Plan of Treatment Upcoming Encounters Date Type Department Care Team (Late st Contact Info) Description 07/15/2024 9:00 AM EST Hospital Encounter [facility] Interventional Radiology [address] [place] [phone] Herve Carrillo MD 3130 [facility] 3200 [place] [phone] documented as of this encounter Visit Diagnoses Not on filedocumented in this encounter Additional Health Concerns Assessment Noted Time PHQ-9 Depression Total Score: 0 12/06/19 18 3:00 PM EDT documented as of this encounter Care Teams Belt Loop Cutter Relationship Specialty Start Date End Date Edgar Fournier MD [address] [place] [address] [place] [address] PCP - General 08/18/17 06/23/21 Maile Valles, JANA Txp Post Coordinator Transplant Hepatology 11/07/17 Jack Ordoñez MD [address] [place] [phone] Consulting Physician Transplant Hepatology 01/05/18 documented as of this encounter
--- OUTSIDE RECORDS SUMMARY | 2024-07-12 12:44 | XMS_ITS | Encounter Summary ---
Author Organization [facility] Address [address] [place] [address] Care Team Providers Care Senior Underwriting Assistant Name Role Phone Edgar Fournier MD Primary Care Provider [phone] Maile Valles RN Unavailable Unavail able Jack Ordoñez MD Unavailable [phone] Estephania Sharif PharmD Unavailable Christine vailable [...] release of HIV test results or diagnoses. [id number] Health Encounter Details Date Type Department Care Team (Latest Contact Info) Description 12/18/2019 10:30 AM EDT Office Visit [facility] Transplant Related Interdisciplinary Metabolic Surgery at [facility] 222 [facility] [address] [place], [place] [phone] Varghese Shipley MD [address] Surgery [place], [place] [address] Hung Trivedi MD [address] [place] [address] Morbid obesity (CMS-HCC) (Primary Dx) Social History [...] as of this encounter Progress Notes * Amrita Mcclellan RD - 12/18/2019 10:30 AM EDT NUTRITION CONSULTATION Reason for Visit: Nutrition Consultation for Weight Loss Surgery Referring Provider: Dr. Fournier Today's Weight: 278 lb Weighs twice/day before and after dialysis Ht Readings from Last 1 Encounters: 10/04/19 5' 7 (1.702 m) Wt Readings from Last 10 Encounters: 10/04/19 (!) 278 lb (126.1 kg) [...] (!) 291 lb 12.8 oz (132.4 kg) ASSESSMENT: Aiden Stauffer was called for nutrition assessment and counseling. Planning to move forward with Sleeve. Reviewed diet recall. Reviewed duarte habits for success after weight loss surgery as listed below. Discussed strategies to better meet these goals. Pt is very knowledgeable and consistent with self-monitoring lab values, weights, and food intake. Stays active around the house and is motivated to make changes necessary for surgery. Estimated Energy Needs per [place] [facility]: (9.99 x 126.1 kg) + (6.25 x 170.2 cm) - (4.92 x 45 years) -161 = 2108 kcal X 1.4 (sedentary activity factor)= 2951 kcal - 1000 kcal (for 2 lb per week weight loss)= 1951 kcal Food allergies/intolerances: None Dietary Supplements taken: Vit D 2X/week, phosphate binder Diet Restrictions: Renal diet, avoids sodium, focus on meat/protein Dialysis: 5X/week home hemo Medications: Current Outpatient Medications Medication Sig ??? [...] total) by mouth 2 times a day. PATIENT OVERDUE FOR LABS ??? NIFEdipine Take 90 mg by mouth [...] Physical inactivity NUTRITION INTERVENTIONS Education provided: Pt received handouts for Patient goals, 1800 calorie MP, and Protein Drinks viae-mail. PATIENT GOALS - Eat 5 small meals per day approximately 3 hours apart - Include a protein and plant with all meals and snacks - Drink 64 oz of water & Eliminate all drinks containing carbonation, sugar and caffeine - Avoid breaded, high fat, and fast foods - Start tracking intakes with Kii norman or with a Written Record - Increase planned activity and exercise as tolerated MONITORING & EVALUATION: Plan for follow up: Follow up in 1 month per program protocol and as needed. Appointment started at 1:42 PM and ended at 1:52 PM. Spent 10 total minutes with pt today for nutrition education and counseling related to the following health issues: morbid obesity. Hung Trivedi MD was available during appointment today, which is in compliance with patients surgical program protocol and plan of care. This was a phone conversation in lieu of an in-person visit. The patient provided verbal consent for an over the phone visit. I spent 10 to 14 minutes on this call conducting an interview, performing a limited exam by phone, and educating the patient on my assessment and plan. * Hung Trivedi MD - 12/18/2019 10:30 AM EDT Patient: Aiden Stauffer Age: 44 y.o. Reason for Visit: evaluation for bariatric surgery A 44 y.o. male who presents for consultation for laparoscopic sleeve gastrectomy. Patient with pastmedical history of liver transplant and kidney disease. Pt has obesity associated conditions of diabetes and hypertension. He was referred for renal transplantation after after his liver transplant but declined because of BMI. He is on hemodialysis at home and has been dialysis since Jul 2019. Pt had attempted medical weight loss unsuccessfully. Has plateaued with weight loss and is not able to get lower than he is now. Patient has been referred for evaluation for surgical weight loss options. Patient was referred by Dr. Fournier The following portions of the patient's history were reviewed and updated as appropriate: allergies, current medications, past family history, past medical history, past social history, past surgicalhistory and problem list. Review of Systems Constitutional: Negative for activity [...] Signs: BP Readings from Last 3 Encounters: 09/19/19 (!) 174/94 07/31/19 (!) 182/92 07/25/19 (!) 165/103 Wt Readings from Last 3 Encounters: 10/04/19 (!) 278 lb (126.1 kg) 09/19/19 (!) 278 lb 12.8 oz (126.5 kg) 07/30/19 (!) 284 lb 8 oz (129 kg) BMI: Estimated body mass index is 43.54 kg/m?? as calculated from the following: Height as of 10/04/19: 5' 7 (1.702 m). Weight as of 10/04/19: 278 lb (126.1 kg). BSA: Estimated body surface area is 2.44 meters squared as calculated from the following: Height as of 10/04/19: 5' 7 (1.702 m). Weight as of 10/04/19: 278 lb (126.1 kg). There were no vitals filed for this visit. Past Medical History: Diagnosis Date ??? Acute [...] resource strain: Not on file ??? Food insecurity: Worry: Not on file Inability: Not on file ??? Transportation needs: Medical: Not on file Non-medical: Not on file Tobacco Use ??? Smoking status: Never Smoker ??? Smokeless tobacco: Never Used Substance and Sexual Activity ??? Alcohol use: No ??? Drug use: No ??? Sexual activity: Yes Partners: Female control/protection: Condom Lifestyle ??? Physical activity: Days per week: Not on file Minutes per session: Not on file ??? Stress: Not on file Relationships ??? Social connections: Talks on phone: Not on file Gets together: Not on file Attends buddhist service: Not on file Active member of club or organization: Not on file Attends meetings of clubs or organizations: Not on file Relationship status: Not on file ??? Intimate partner violence: Fear of current or ex partner: Not on file Emotionally abused: Not on file Physically abused: Not on file Forced sexual activity: Not on file Other Topics Concern ??? Not on file Social History Narrative ??? Not on file Labs: Lab name 07/19/19 2357 09/19/19 1418 11/15/19 11/15/19 0755 HEMOGLOBIN 7.4* < > 11.9* 11.3* -- HEMATOCRIT 23.0* < > 35.5* 35.1* -- MEAN CORPUSCULAR VOLUME 84.3 < > 91.0 97.2 -- PLATELETS 149 < > 175 -- -- SODIUM 134 < > 142 -- 142 POTASSIUM 5.4* < > 4.1 -- 4.6 CHLORIDE 101 < > 103 -- 103 CO2 19* < > 33 -- 28* BUN 58* < > 26* -- 55* CREATININE 7.45* < > 4.43* -- 7.7* GLUCOSE 270* < > 193* -- 165 PHOSPHORUS 4.9* < > 3.5 -- 6.7* ALBUMIN 3.3* 3.3* < > 3.6 -- 3.2 CALCIUM 7.3* < > 8.3* -- 6.9* AST 12* < > -- -- 14 ALT 6* < > -- -- 22 BILIRUBIN TOTAL 0.3 < > -- -- 0.2 ALK PHOS 98 < > -- -- 138 INR 1.1 -- -- -- -- < > = values in this interval not displayed. Lab name 07/01/19 0339 07/20/19 0628 07/22/19 0616 07/23/19 0414 TACROLIMUS BLOOD <2.0* 2.2* <2.0* 3.2* ASSESSMENT: Aiden Stauffer is a 44 y.o. male with PMHx significant for liver transplant and Morbid Obesity. I discussed with the patient options for weight loss, including both medical and surgical. The patient stated that they have attempted medical weight loss options without success in the past and wishes to be considered for surgical weight loss. We discussed surgical weight loss options, specifically laparoscopic sleeve gastrectomy. I discussed the risks/complications/procedure with the patient and her/his family members. We specifically discussed the risk of laparoscopic surgery and the 2% risk of leak of at the gastric staple line. We also discussed the workup needed prior to the procedure and the patient wishes to proceed. Explained that successful bariatric surgery and/or weight loss does not guarantee transplant candidacy. ROS reviewed today and updated. PLAN: Proceed with workup: ?? Nutrition assessment ?? EGD ?? Sleep Medicine Consultation ?? Psychological Consultation ?? EKG ?? CXR ?? Cardiac Stress Test (if greater than 45 years old) ?? Pulmonary Function Testing ?? Labs: Renal panel, liver panel, lipid panel, Hepatitis panel, HgB A1c, Vitamin A, Thiamin, Vitamin B12, Vitamin C, Vitamin D 1-25 dihydroxy, Vitamin E, Zinc, Iron, Pre-albumin, PTH, Ferritin, Folate, CBC This was a telephone visit, including two-way audio, in lieu of an in-person visit. The patient verbally confirmed name and date of and provided verbal consent to use the telephone visit. I spent 25 to 29 minutes min on this call conducting an interview, speaking with the patient, and educating the patient on my assessment and plan. I also spent 25 to 29 minutes min performing other activities for the service provided including reviewing charts, interpreting any relevant films and discussing the case with the multidisciplinary team involved in the care. Total time for the visit was 45 to 49 minutes min. Hung Trivedi MD service parts driver [facility] 12/18/2019 10:24 AM * Jen SARAVIA - 12/18/2019 10:30 AM EDT DEMOGRAPHIC INFORMATION NAME: Aiden Stauffer [facility] DATE OF : 1975 SEX: male RACE: White or EDUCATION GRADUATE: X Yes No IF NO, # OF YEARS SCHOOL COMPLETED EDUCATION COMPLETED: [employer] Some College Bachelors PhD INSURANCE PRIMARY INSURANCE Medicare SECONDARY INSURANCE MEDICAL INFORMATION HEIGHT: WEIGHT: BMI: There is no height or weight on file to calculate BMI. 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 Interventional Radiology [address] [place] [phone] Herve Carrillo MD 3130 [facility] 3[address] [place] [phone] documented as of this encounter Visit Diagnoses Diagnosis Morbid obesity (CMS-HCC)- Primary Morbid obesity documented in this encounter Additional Health Concerns Assessment Noted Time PHQ-9 Depression Total Score: 0 12/06/19 18 3:00 PM EDT documented as of this encounter Care Teams Senior Underwriting Assistant Relationship Specialty Start Date End Date [place] [phone] PCP - General 08/18/17 06/23/21 Maile Valles, RN Txp Post Coordinator Transplant Hepatology 11/07/17 Jack Ordoñez MD [facility] [place] [address] Consulting Physician Transplant Hepatology 01/05/18 Estephania Sharif, PharmD Pharmacist Pharmacist 11/11/19 documented as of this encounter
--- OUTSIDE RECORDS SUMMARY | 2024-07-12 12:44 | XMS_ITS | Encounter Summary ---
Author Organization [facility] Address [address] [place] [address] Care Team Providers Care Geotechnical Operating Engineer Name Role Phone Edgar Fournier MD Primary Care Provider [phone] Maile Valles RN Unavailable Unavail able Jack Ordoñez MD Unavailable [phone] Source Comments This information has been [...] release of HIV test results or diagnoses. [id number] Health Encounter Details Date Type Department Care Team (Late st Contact Info) Description 09/30/2019 Telephone [facility] Weight Loss Center at [facility] [address] [place] [address] Maile Can MA Social History [...] Telephone Encounter - Maile Can MA - 09/30/2019 11:14 AM EST AG 09/15/16, pt has Medicare part A only, will need part A and B to have surgery. Pt has BMI of 43.5 with JC, DM, HTN. Pt does have benefits . Patient has Medicare insurance. They require 3 months supervised with a BMI of greater than 35 withone co-morbid. BMI at time of initial assessment will be used. No history is needed. $100.00 enrollment and $60.00 fitness due at [place]. documented in this encounter Plan of Treatment Upcoming Encounters Date Type Department Care Team (Late st Contact Info) Description 07/15/2024 9:00 AM EST Hospital Encounter [facility] Interventional Radiology [address] [place] [phone] Herve Carrillo MD 3130 [facility] 3[address] Surgery [place] [phone] documented as of this encounter Visit Diagnoses Not on filedocumented in this encounter Additional Health Concerns Assessment Noted Time PHQ-9 Depression Total Score: 0 12/06/19 18 3:00 PM EDT documented as of this encounter Care Teams Geotechnical Operating Engineer Relationship Specialty Start Date End Date Edgar Fournier MD [address] [place] [address] [place] [phone] PCP - General 08/18/17 06/23/21 Maile Valles, JANA Txp Post Coordinator Transplant Hepatology 11/07/17 Jack Ordoñez MD [address] [place] [phone] Consulting Physician Transplant Hepatology 01/05/18 documented as of this encounter
--- OUTSIDE RECORDS SUMMARY | 2024-07-12 12:44 | XMS_ITS | Encounter Summary ---
Author Organization [facility] Address [address] [place] [address] Care Team Providers Care Ginning Operator Name Role Phone Edgar Fournier MD Primary Care Provider [phone] Maile Valles RN Unavailable Unavail able Jack Ordoñez MD Unavailable [phone] Source Comments This information has been [...] release of HIV test results or diagnoses. [id number] Health Encounter Details Date Type Department Care Team (Late st Contact Info) Description 09/30/2019 Chart Note [facility] Weight Loss Center at [facility] [address] [place] [address] Judi Yeboah Social History Tobacco [...] Hospital Encounter [facility] Interventional Radiology [address] [place] [phone] Herve Carrillo MD [address] [facility] [address] [place] [phone] documented as of this encounter Visit Diagnoses Not on filedocumented in this encounter Additional Health Concerns Assessment Noted Time PHQ-9 Depression Total Score: 0 12/06/19 18 3:00 PM EDT documented as of this encounter Care Teams Ginning Operator Relationship Specialty Start Date End Date Edgar Fournier MD [address] [place] [address] [place] [address] PCP - General 08/18/17 06/23/21 Maile Valles, JANA Txp Post Coordinator Transplant Hepatology 11/07/17 Jack Ordoñez MD [address] [place] [phone] Consulting Physician Transplant Hepatology 01/05/18 documented as of this encounter
--- OUTSIDE RECORDS SUMMARY | 2024-07-12 12:44 | XMS_ITS | Encounter Summary ---
Author Organization [facility] Address [facility] [place] [address] Care Team Providers Care Furniture Delivery Driver Name Role Phone Edgar Fournier MD Primary Care Provider [phone] Maile Valles RN Unavailable Unavail able Jack Ordoñez MD Unavailable [phone] Estephania Sharif PharmD Unavailable Christine vailable [...] release of HIV test results or diagnoses. [id number] Health Encounter Details Date Type Department Care Team (Late st Contact Info) Description 11/18/[address] [facility] Liver Transplant at Outpatient [place] [address] [place] [address] Cayetano Park MA Social History Tobacco Use [...] encounter Miscellaneous Notes * Telephone Encounter - Cayetano Park MA - 11/18/2019 8:03 AM EDT Ms Stauffer called and said that Aiden was talking out of his head and was really drowsy and could not hardly walk on his own without assistance. She said that this had been going on for over 24 hours.I advised her to take him to local ER. Note routed to coordinator. documented in this encounter Plan of Treatment Upcoming Encounters Date Type Department Care Team (Late st Contact Info) Description 07/15/2024 9:00 AM EST Hospital Encounter [facility] Interventional Radiology [address] [place] [phone] Herve Carrillo MD [address] [facility] 3200 [place] [phone] documented as of this encounter Visit Diagnoses Not on filedocumented in this encounter Additional Health Concerns Assessment Noted Time PHQ-9 Depression Total Score: 0 12/06/19 18 3:00 PM EDT documented as of this encounter Care Teams Furniture Delivery Driver Relationship Specialty Start Date End Date Edgar Fournier MD [address] [place] [address] [place] [address] PCP - General 08/18/17 06/23/21 Maile Valles, JANA Txp Post Coordinator Transplant Hepatology 11/07/17 Jack Ordoñez MD [address] [place] [phone] Consulting Physician Transplant Hepatology 01/05/18 Estephania Sharif, PharmD Pharmacist Pharmacist 11/11/19 documented as of this encounter
--- OUTSIDE RECORDS SUMMARY | 2024-07-12 12:44 | XMS_ITS | Encounter Summary ---
Author Organization [facility] Address [facility] [place] [address] Care Team Providers Care Frame Stylist Name Role Phone Edgar Fournier MD Primary Care Provider [phone] Maile Valles RN Unavailable Unavail able Jack Ordoñez MD Unavailable [phone] Source Comments This information has been [...] release of HIV test results or diagnoses. [id number] Reason for Visit * Reason Comments Medication Refill Encounter Details Date Type Department Care Team (Late st Contact Info) Description 10/14/2019 Refill [facility] Medicine and Pediatrics at [facility] [address] [facility] [address] [place] [address] Keon Qureshi MD 3130 [facility] 2nd Floor, Med/Peds Clinic [place], [place] [phone] Social History Tobacco Use Types Packs/Day Years [...] 07/15/2024 9:00 AM EST Hospital Encounter [facility] Interventional Radiology [address] [place] [phone] Herve Carrillo MD 3130 [facility] 3200 [place] [phone] documented as of this encounter Visit Diagnoses Not on filedocumented in this encounter Additional Health Concerns Assessment Noted Time PHQ-9 Depression Total Score: 0 12/06/19 18 3:00 PM EDT documented as of this encounter Care Teams Frame Stylist Relationship Specialty Start Date End Date Edgar Fournier MD [address] [place] [address] [place] [address] PCP - General 08/18/17 06/23/21 Maile Valles, RN Txp Post Coordinator Transplant Hepatology 11/07/17 Jack Ordoñ[place] [address] [place] [phone] Consulting Physician Transplant Hepatology 01/05/18 documented as of this encounter
--- OUTSIDE RECORDS SUMMARY | 2024-07-12 12:44 | XMS_ITS | Encounter Summary ---
Author Organization [facility] Address [address] [place] [address] Care Team Providers Care Hop Worker Name Role Phone Edgar Founrier MD Primary Care Provider [phone] Maile Valles RN Unavailable Unavail able Jack Ordoñez MD Unavailable [phone] Source Comments This information has been [...] release of HIV test results or diagnoses. [id number] Reason for Visit * Reason Comments Medication Access Services Encounter Details Date Type Department Care Team (Late st Contact Info) Description 09/24/2019 Pharmacy Services [facility] Specialty Pharmacy [address] [place] [address] Elmira Hussein RXT Social History Tobacco [...] encounter Progress Notes * MERARY Palma - 09/24/2019 3:07 PM EST MEDICATION ACCESS SERVICES Application for free Gengraf submitted to [employer] Patient Assistance [employer]. A $0 income Financial Hardship letter was sent with application. Medication Access to monitor. Elmira Hussein Medication Access Services phone fax documented in this encounter Plan of Treatment Upcoming Encounters Date Type Department Care Team (Late st Contact Info) Description 07/15/2024 9:00 AM EST Hospital Encounter [facility] Interventional Radiology [address] [place] [phone] Herve Carrillo MD [address] [facility] 3200 [place] [phone] documented as of this encounter Visit Diagnoses Not on filedocumented in this encounter Additional Health Concerns Assessment Noted Time PHQ-9 Depression Total Score: 0 12/06/19 18 3:00 PM EDT documented as of this encounter Care Teams Hop Worker Relationship Specialty Start Date End Date Edgar Fournier MD [address] [place] [address] [place] [address] PCP - General 08/18/17 06/23/21 Maile Valles, JANA Txp Post Coordinator Transplant Hepatology 11/07/17 Jack Ordoñez MD [address] [place] [phone] Consulting Physician Transplant Hepatology 01/05/18 documented as of this encounter
--- OUTSIDE RECORDS SUMMARY | 2024-07-12 12:44 | XMS_ITS | Encounter Summary ---
Author Organization [facility] Address [address] [place] [address] Care Team Providers Care Shredded Filler Machine Wrapper Layer Name Role Phone Edgar Fournier MD Primary Care Provider [phone] Maile Valles RN Unavailable Unavail able Jack Ordoñez MD Unavailable [phone] Estephania Sharif PharmD Unavailable Christine vailable [...] release of HIV test results or diagnoses. [id number] Reason for Visit * Reason Comments Medication Access Services Encounter Details Date Type Department Care Team (Late st Contact Info) Description 12/20/2019 Pharmacy Services [facility] Specialty Pharmacy [address] [place] [address] Elmira Hussein I, LUCIT Social History Tobacco Use Types Packs/Day Years [...] encounter Progress Notes * MERARY Palma - 12/20/2019 11:31 AM EDT MEDICATION ACCESS SERVICES Refill reordered for Gengraf from [employer] Patient Assistance [employer]. Drug will be delivered to Medication Access Services in 7 - 10 business days. Elmira Hussein Medication Access Services phone fax documented in this encounter Plan of Treatment Upcoming Encounters Date Type Department Care Team (Late st Contact Info) Description 07/15/2024 9:00 AM EST Hospital Encounter [facility] Interventional Radiology [address] [place] [phone] Herve Carrillo MD 3130 [facility] 3200 [place] [phone] documented as of this encounter Visit Diagnoses Not on filedocumented in this encounter Additional Health Concerns Assessment Noted Time PHQ-9 Depression Total Score: 0 12/06/19 18 3:00 PM EDT documented as of this encounter Care Teams Shredded Filler Machine Wrapper Layer Relationship Specialty Start Date End Date Edgar Fournier MD [address] [place] [address] [place] [phone] PCP - General 08/18/17 06/23/21 Maile Valles, JANA Txp Post Coordinator Transplant Hepatology 11/07/17 Jack Ordoñez MD [address] [place] [address], [place] [phone] Consulting Physician Transplant Hepatology 01/05/18 Estephania Sharif, DarrianD Pharmacist Pharmacist 11/11/19 documented as of this encounter
--- OUTSIDE RECORDS SUMMARY | 2024-07-12 12:44 | XMS_ITS | Encounter Summary ---
Author Organization [facility] Address [address] [place] [address] Care Team Providers Care Steamtable Worker Name Role Phone Edgar Fournier MD Primary Care Provider [phone] Maile Valles RN Unavailable Unavail able Jack Ordoñez MD Unavailable [phone] Estephania Sharif PharmD Unavailable Christine vailable [...] release of HIV test results or diagnoses. [id number] Reason for Visit * Reason Comments Medication Access Services Encounter Details Date Type Department Care Team (Late st Contact Info) Description 11/12/2019 Pharmacy Services [facility] Specialty Pharmacy [address] [place] [address] Elmira Hussein I, LUCIT Social History [...] as of this encounter Progress Notes * Elmira Hussein, RXT - 11/12/2019 10:43 AM EDT MEDICATION ACCESS SERVICES Application for free [employer] started for patient. Application to be sent to patient with Gengraf shipment. Patient will return signed application to Medication Access Services. Application to provider for signature. Elmira Hussein Medication Access Services phone fax documented in this encounter Plan of Treatment Upcoming Encounters Date Type Department Care Team (Late st Contact Info) Description 07/15/2024 9:00 AM EST Hospital Encounter [facility] Interventional Radiology [address] [place] [phone] Herve Carrillo MD 3130 [facility] 3200 [place] [phone] documented as of this encounter Visit Diagnoses Not on filedocumented in this encounter Additional Health Concerns Assessment Noted Time PHQ-9 Depression Total Score: 0 12/06/19 18 3:00 PM EDT documented as of this encounter Care Teams Steamtable Worker Relationship Specialty Start Date End Date Edgar Fournier MD [address] [place] [address] [place] [address] PCP - General 08/18/17 06/23/21 Maile Valles, JANA Txp Post Coordinator Transplant Hepatology 11/07/17 Jack Ordoñez MD [address] [place] [phone] Consulting Physician Transplant Hepatology 01/05/18 Estephania Sharif, DarrianD Pharmacist Pharmacist 11/11/19 documented as of this encounter
--- OUTSIDE RECORDS SUMMARY | 2024-07-12 12:44 | XMS_ITS | Encounter Summary ---
Author Organization [facility] Address [address] [place] [address] Care Team Providers Care Administrator Health Care Facility Name Role Phone Edgar Fournier MD Primary Care Provider [phone] Maile Valles RN Unavailable Unavail able Jack Ordoñez MD Unavailable [phone] Source Comments This information has been [...] release of HIV test results or diagnoses. [id number] Health Encounter Details Date Type Department Care Team (Latest Contact Info) Description 09/19/2019 Travel Social History Tobacco Use Types Packs/Day [...] Upcoming Encounters Date Type Department Care Team ( st Contact Info) Description 07/15/2024 9:00 AM EST Hospital Encounter [facility] Interventional Radiology [address] [place] [phone] Herve Carrillo MD [address] [place] [facility] 3200 [place] [phone] documented as of this encounter Visit Diagnoses Not on filedocumented in this encounter Additional Health Concerns Assessment Noted Time PHQ-9 Depression Total Score: 0 12/06/19 18 3:00 PM EDT documented as of this encounter Care Teams Administrator Health Care Facility Relationship Specialty Start Date End Date Edgar Fournier MD [address] [place] [address] [place] [phone] PCP - General 08/18/17 06/23/21 Maile Valles RN Txp Post Coordinator Transplant Hepatology 11/07/17 Jack Ordoñez MD [address] [place] [phone] Consulting Physician Transplant Hepatology 01/05/18 documented as of this encounter
--- OUTSIDE RECORDS SUMMARY | 2024-07-12 12:44 | XMS_ITS | Encounter Summary ---
Author Organization [facility] Address [facility] [place] [address] Care Team Providers Care Cardiac Cath Lab Manager Name Role Phone Edgar Fournier MD Primary Care Provider [phone] Maile Valles RN Unavailable Unavail able Jack Ordoñez MD Unavailable [phone] Source Comments This information has been [...] release of HIV test results or diagnoses. [id number] Reason for Visit * Reason Comments Labs Only Encounter Details Date Type Department Care Team (Late st Contact Info) Description 09/19/2019 12:25 PM EST Specimen [facility] Outreach Lab [address] [place] [phone] Jack Ordoñez MD [address] [place] [phone] Transplanted liver (CMS-HCC); Drug therapy; Liver replaced by transplant (CMS-HCC); Pharmacologic therapy; Encounter for therapeutic drug monitoring Social History [...] [facility] Interventional Radiology [address] [place] [address] Herve Carrillo MD 3130 [facility] 3200 Surgery [place] [phone] documented as of this encounter Procedures Procedure Name Priority Date/Time Associated Diagnosis Comments HEPATIC FUNCTION PANEL Routine 09/19/2019 12:22 PM EST Transplanted liver ([facility]) Drug therapy CYCLOSPORINE LEVEL Routine 09/19/2019 12 :22 PM EST Liver replaced by transplant ([facility]) Pharmacologic therapy Encounter for therapeutic drug monitoring documented in this encounter Results * (ABNORMAL) Cyclosporine level (09/19/2019 12:22 PM EST) Cyclosporine, Blood 32(L) 100 - 400 ng/mL 09/20/2019 1:20 PM EST [facility] Comment: Detection limit: ??30 ng/mL. ??Performed via chemiluminescent microparticle immunoassay on the [employer] i1000. Whole blood specimen (specimen) 09/19/2019 12:22 PM EST 09/19/2019 12:52 PM EST Narrative [facility]ALTH LAB - 09/20/2019 1:20 PM EST Standing lab; draw frequency will vary based on condition. Fax results to [phone]. Call critical values to [phone]. Jack Ordoñez MD LAB BLOOD ORDERABLES Final Re sult Performing Organization Address [facility]/State/ZIP Co de Phone Number [facility] [address] [facility]. [address] * (ABNORMAL) Hepatic Function Panel (09/19/2019 12:22 PM EST) Total Bilirubin 0.3 0.0 - 1.5 mg/dL 09/19/2019 1:20 PM EST [facility] Bilirubin, Direct 0.05 0.00 - 0.40 mg/dL 09/19/2019 1:20 PM EST [facility] AST 15 13 - 39 U/L 09/19/2019 1:20 PM EST [facility] ALT 8 7 - 52 U/L 09/19/2019 1:20 PM EST [facility] Alkaline Phosphatase 132(H) 36 - 125 U/L 09/19/2019 1:20 PM EST [facility] Total Protein 6.1(L) 6.4 - 8.9 g/dL 09/19/2019 1:20 PM EST [facility] Albumin 3.6 3.5 - 5.7 g/dL 09/19/2019 1:20 PM EST [facility] Bilirubin, Indirect 0.25 0.00 - 1.10 mg/dL 09/19/2019 1:20 PM EST [facility] Plasma specimen (specimen) 09/19/2019 12:22 PM EST 09/19/2019 12:52 PM EST Narrative [facility]ALTH LAB - 09/19/2019 1:20 PM EST Standing labs monthly. Please fax results to [phone] Jack Ordoñez MD LAB BLOOD ORDERABLES Final Re sult [facility] [address] documented in this encounter Visit Diagnoses Diagnosis Transplanted liver (CMS-HCC) Liver replaced by transplant Drug therapy Encounter for other specified aftercare Liver replaced by transplant (CMS-HCC) Liver replaced by transplant Pharmacologic therapy Encounter for other specified aftercare Encounter for therapeutic drug monitoring documented in this encounter Additional Health Concerns Assessment Noted Time PHQ-9 Depression Total Score: 0 12/06/19 18 3:00 PM EDT documented as of this encounter Care Teams Cardiac Cath Lab Manager Relationship Specialty Start Date End Date Edgar Fournier MD [address] [place] [address] PCP - General 08/18/17 06/23/21 Maile Valles, RN Txp Post Coordinator Transplant Hepatology 11/07/17 Jack Ordoñez MD [address] [place] [phone] Consulting Physician Transplant Hepatology 01/05/18 documented as of this encounter
--- OUTSIDE RECORDS SUMMARY | 2024-07-12 12:44 | XMS_ITS | Encounter Summary ---
Author Organization [facility] Address [address] [place] [address] Care Team Providers Care Senior Cobol Developer Name Role Phone Edgar Fournier MD Primary Care Provider [phone] Maile Valles RN Unavailable Unavail able Jack Ordoñez MD Unavailable [phone] Estephania Sharif PharmD Unavailable Christine vailable [...] release of HIV test results or diagnoses. [id number] Reason for Visit * Reason Comments Medication Access Services Encounter Details Date Type Department Care Team (Late st Contact Info) Description 12/13/2019 Pharmacy Services [facility] Specialty Pharmacy [address] [place] [address] Elmira Hussein I, LUCIT Social History [...] encounter Progress Notes * MERARY Palma - 12/13/2019 10:16 AM EDT MEDICATION ACCESS SERVICES Faxed a new Gengraf prescription (dose increase) to [employer] Patient Assistance [employer]. Elmira Hussein Medication Access Services phone fax documented in this encounter Plan of Treatment Upcoming Encounters Date Type Department Care Team (Late st Contact Info) Description 07/15/2024 9:00 AM EST Hospital Encounter [facility] Interventional Radiology [address] [place] [phone] Herve Carrillo MD 3130 [facility] 3200 [place] [phone] documented as of this encounter Visit Diagnoses Not on filedocumented in this encounter Additional Health Concerns Assessment Noted Time PHQ-9 Depression Total Score: 0 12/06/19 18 3:00 PM EDT documented as of this encounter Care Teams Senior Cobol Developer Relationship Specialty Start Date End Date Edgar Fournier MD [address] [place] [address] [place] [address] PCP - General 08/18/17 06/23/21 Maile Valles, JANA Txp Post Coordinator Transplant Hepatology 11/07/17 Jack Ordoñez MD [address] [place] [phone] Consulting Physician Transplant Hepatology 01/05/18 Estephania Sharif, DarrianD Pharmacist Pharmacist 3/30/20 documented as of this encounter
--- OUTSIDE RECORDS SUMMARY | 2024-07-12 12:44 | XMS_ITS | Encounter Summary ---
Author Organization [facility] Address [address] [place] [address] Care Team Providers Care Household Appliance Assembler Name Role Phone Edgar Fournier MD Primary Care Provider [phone] Maile Valles RN Unavailable Unavail able Jack Ordoñez MD Unavailable [phone] Estephania Sharif PharmD Unavailable Christine vailable [...] release of HIV test results or diagnoses. [id number] Health Encounter Details Date Type Department Care Team (Late st Contact Info) Description 11/15/2019 Telephone [facility] Transplant Related Interdisciplinary Metabolic Surgery at [facility] [address] [address] Laurence Hernandez MA Social History [...] Telephone Encounter - Laurence Hernandez MA - 11/27/2019 3:21 PM EDT [facility] Referral Questionnaire: Basic Info Previously had bariatric surgery (Type?/When?/Where?): No Referring MD: Dr. Cyr Insurance: See Chart Medical/Surgical History History of liver (MELD?)/kidney disease (stage?) (When?/Where?): Liver Transplant, 10/08/2017 by .... ESRD (2018) History of abdominal surgeries? (When?/Where?/What type?) Liver Transplant (10/08/2017) History of diabetes (Type1 or 2/When diagnosed) Yes- Type 2 (10 years ago) Monitoring blood sugar, as instructed? Yes HBA1C 5.6 Steamer Gum Candy: No History of cardiac issues or heart attack (When?/Where?/Inspector Cold Working?): No History of hypertension (When?/Where?): No History of stents placed in heart (How many?): No History of cardiac device placement (LVAD, ICD, pacemaker) (When?/Where?): No History of lung problems (Apns?) No History of a stroke/TIA/brain bleed (When?): No History of organ transplant (When?/Where?): Liver (10/08/2017) History of blood clot(s) (When?/Where?): No History of sleep apnea (When? CPAP?): Yes, C-pap- 2019 Are you currently smoking? (How many packs a day?): No Medical Testing: (When?/Where?): - Stress Test: No EKG: No Chest X-ray: Yes, 2018 EGD: Yes, 2018 PFTs: No Additional Information: Bariatric Evaluation: (When?/Where?) [facility]- in workup Blood thinners (Prescribing MD?): ASA 81mg Dialysis: [facility] (Unit?/Where?/Days?) Home Dialysis [facility] LSG Education Informational flyer given - patient verbalizes need to watch video and confirm to team prior to getting an appointment for evaluation clinic * Telephone Encounter - Laurence Hernandez MA - 11/21/2019 1:53 PM EDT Pt's phone states the number is unavailable. I am unable to leave a message. * Telephone Encounter - Laurence Hernandez MA - 11/15/2019 10:22 AM EDT Unable to leave message, phone states caller is unavailable. documented in this encounter Plan of Treatment Upcoming Encounters Date Type Department Care Team (Late st Contact Info) Description 07/15/2024 9:00 AM EST Hospital Encounter [facility] Interventional Radiology [address] [place] [phone] Herve Carrillo MD 3130 [facility] 3200 [place] [phone] documented as of this encounter Visit Diagnoses Not on filedocumented in this encounter Additional Health Concerns Assessment Noted Time PHQ-9 Depression Total Score: 0 12/06/19 18 3:00 PM EDT documented as of this encounter Care Teams Household Appliance Assembler Relationship Specialty Start Date End Date Edgar Fournier MD [address] [place] [address] [place] [address] PCP - General 08/18/17 06/23/21 Maile Valles, RN Txp Post Coordinator Transplant Hepatology 11/07/17 Jack Ordoñez MD [address] [place] [phone] Consulting Physician Transplant Hepatology 01/05/18 Estephania Sharif, PharmD Pharmacist Pharmacist 11/11/19 documented as of this encounter
--- OUTSIDE RECORDS SUMMARY | 2024-07-12 12:44 | XMS_ITS | Encounter Summary ---
Author Organization [facility] Address [facility] [place] [address] Care Team Providers Care Configuration Management Specialist Name Role Phone Edgar Fournier MD Primary Care Provider [phone] Maile Valles RN Unavailable Unavail able Jack Ordoñez MD Unavailable [phone] Estephania Sharif PharmD Unavailable Christine vailable [...] release of HIV test results or diagnoses. [id number] Reason for Visit * Reason Comments Advice Only Encounter Details Date Type Department Care Team (Late st Contact Info) Description 11/19/2019 Telephone [facility] Liver Transplant at Outpatient [address] [address] Maile Valles, police judge Only Social History Tobacco Use Types Packs/Day [...] Telephone Encounter - Maile Valles RN - 11/19/2019 8:17 AM EDT Spoke with patient's . Patient diagnosed with Shingles last week. Had surgery for dialysis access on Monday. Patient's states he was in a lot of pain, but giventoo much pain medication. Patient was out of his head on Monday evening and went to local ED on Monday. He was released from [facility] and she believes he is doing better, but wondered if he should come to [facility]. Advised that since it sounds like he's improving since stopping the pain meds, would recommend patient only come to [facility] ED if symptoms worsen. Patient's verbalized understanding and was comfortable with this plan. documented in this encounter Plan of Treatment Upcoming Encounters Date Type Department Care Team (Late st Contact Info) Description 07/15/2024 9:00 AM EST Hospital Encounter [facility] Interventional Radiology [address] [place] [phone] Herve Carrillo MD 3135 [facility] 3200 Surgery [place] [phone] documented as of this encounter Visit Diagnoses Not on filedocumented in this encounter Additional Health Concerns Assessment Noted Time PHQ-9 Depression Total Score: 0 12/06/19 18 3:00 PM EDT documented as of this encounter Care Teams Configuration Management Specialist Relationship Specialty Start Date End Date Edagr Fournier MD Rufina JASON Downs [address] PCP - General 08/18/17 06/23/21 Maile Valles, JANA Txp Post Coordinator Transplant Hepatology 11/07/17 Jack Ordoñez MD [address] [place] [phone] Consulting Physician Transplant Hepatology 01/05/18 Estephania Sharif, DarrianD Pharmacist Pharmacist 11/11/19 documented as of this encounter
--- OUTSIDE RECORDS SUMMARY | 2024-07-12 12:44 | XMS_ITS | Encounter Summary ---
Author Organization [facility] Address [address] [place] [address] Care Team Providers Care Eligibility Manager Name Role Phone Edgar Fournier MD Primary Care Provider [phone] Maile Valles RN Unavailable Unavail able Jack Ordoñez MD Unavailable [phone] Source Comments This information has been [...] release of HIV test results or diagnoses. [id number] Health Encounter Details Date Type Department Care Team (Late st Contact Info) Description 09/30/2019 Telephone [facility] [address] [place] [address] Denae Bangura Social History Tobacco Use Types Packs/Day Years [...] encounter Miscellaneous Notes * Telephone Encounter - Denae Bangura - 09/30/2019 1:54 PM EST PW 09/30 voicemail not set up. Emailed that he needs to get Part B medicare. Dread patient PW 10/01 pt states he should have Medicare part B in place within a week. Once that is done, he equalifies. Move to [place] PW 10/10 emailed pt asking about Medicare part B PW 11/04 Medicare part B still not in place call on11/10 PW 11/07 transplant pt. Says he has done requirements at [facility] and al records sent. Ready for scheduling at [facility] documented in this encounter Plan of Treatment Upcoming Encounters Date Type Department Care Team (Late st Contact Info) Description 07/15/2024 9:00 AM EST Hospital Encounter [facility] Interventional Radiology [address] [place] [phone] Herve Carrillo MD 3130 [facility] 3200 [place] [phone] documented as of this encounter Visit Diagnoses Not on filedocumented in this encounter Additional Health Concerns Assessment Noted Time PHQ-9 Depression Total Score: 0 12/06/19 18 3:00 PM EDT documented as of this encounter Care Teams Eligibility Manager Relationship Specialty Start Date End Date Edgar Fournier MD [address] [place] [address] [place] [address] PCP - General 08/18/17 06/23/21 Maile Valles, JANA Txp Post Coordinator Transplant Hepatology 11/07/17 Jack Ordoñez MD [facility]8 [place] [address] Consulting Physician Transplant Hepatology 01/05/18 documented as of this encounter
--- OUTSIDE RECORDS SUMMARY | 2024-07-12 12:44 | XMS_ITS | Encounter Summary ---
Author Organization [facility] Address [address] [place] [address] Care Team Providers Care Pearl Cutter Name Role Phone Edgar Fournier MD Primary Care Provider [phone] Maile Valles RN Unavailable Unavail able Jack Ordoñez MD Unavailable [phone] Estephania Sharif PharmD Unavailable Christine vailable [...] release of HIV test results or diagnoses. [id number] Health Encounter Details Date Type Department Care Team (Late st Contact Info) Description 12/20/2019 Chart Note [facility] Transplant Related Interdisciplinary Metabolic Surgery at [facility] [address] [facility] [address] [place] [address] Laurence Hernandez MA TRIMS Testing Social History Tobacco Use Types Packs/Day Years [...] as of this encounter Progress Notes * Laurence Hernandez MA - 12/20/2019 2:54 PM EDT TRIMS Testing Pt will need 4 months of nutrition visits, psych clearance, labs and PFT. documented in this encounter Plan of Treatment Upcoming Encounters Date Type Department Care Team (Late st Contact Info) Description 07/15/2024 9:00 AM EST Hospital Encounter [facility] Interventional Radiology [address] [place] [phone] Herve Carrillo MD 3130 [facility] 3200 [place] [phone] documented as of this encounter Visit Diagnoses Not on filedocumented in this encounter Additional Health Concerns Assessment Noted Time PHQ-9 Depression Total Score: 0 12/06/19 18 3:00 PM EDT documented as of this encounter Care Teams Pearl Cutter Relationship Specialty Start Date End Date Edgar Fournier MD [address] [place] [address] [place] [address] PCP - General 08/18/17 06/23/21 Maile Valles, JANA Txp Post Coordinator Transplant Hepatology 11/07/17 Jack Ordoñez MD [address] [place] [phone] Consulting Physician Transplant Hepatology 01/05/18 Estephania Sharif, DarrianD Pharmacist Pharmacist 11/11/19 documented as of this encounter
--- OUTSIDE RECORDS SUMMARY | 2024-07-12 12:44 | XMS_ITS | Encounter Summary ---
Author Organization [facility] Address [address] [place] [address] Care Team Providers Care Personal Lines Agent Name Role Phone Edgar Fournier MD Primary Care Provider [phone] Maile Valles RN Unavailable Unavail able Jack Ordoñez MD Unavailable [phone] Estephania Sharif PharmD Unavailable Christine vailable [...] release of HIV test results or diagnoses. [id number] Encounter Details Date Type Department Care Team (Latest Contact Info) Description 12/17/2019 Travel Social History Tobacco Use Types Packs/Day [...] 07/15/2024 9:00 AM EST Hospital Encounter [facility] Interventional Radiology [address] [place] [phone] Herve Carrillo MD 3130 [facility] 3200 [place] [phone] documented as of this encounter Visit Diagnoses Not on filedocumented in this encounter Additional Health Concerns Assessment Noted Time PHQ-9 Depression Total Score: 0 12/06/19 18 3:00 PM EDT documented as of this encounter Care Teams Personal Lines Agent Relationship Specialty Start Date End Date Edgar Fournier MD [address] [place] [address] [place] [address] PCP - General 08/18/17 06/23/21 Maile Valles, JANA Txp Post Coordinator Transplant Hepatology 11/07/17 Jack Ordoñez MD [address] [place] [phone] Consulting Physician Transplant Hepatology 01/05/18 Estephania Sharif, DarrianD Pharmacist Pharmacist 11/11/19 documented as of this encounter
--- OUTSIDE RECORDS SUMMARY | 2024-07-12 12:44 | XMS_ITS | Encounter Summary ---
Author Organization [facility] Address [address] [place] [address] Care Team Providers Care Technology Infusion Specialist Name Role Phone Edgar Fournier MD Primary Care Provider [phone] Maile Valles RN Unavailable Unavail able Jack Ordoñez MD Unavailable [phone] Estephania Sharif PharmD Unavailable Christine vailable [...] release of HIV test results or diagnoses. [id number] Reason for Visit * Reason Comments Medication Access Services Encounter Details Date Type Department Care Team (Late st Contact Info) Description 11/29/2019 Pharmacy Services [facility] [address] [place] [address] Elmira Hussein I, LUCIT Social History [...] encounter Progress Notes * MERARY Palma - 11/29/2019 1:59 PM EDT MEDICATION ACCESS SERVICES Emailed a new copy of [employer] application to patient. Patient to return signed application with income. Elmira Hussein Medication Access Services phone fax documented in this encounter Plan of Treatment Upcoming Encounters Date Type Department Care Team (Late st Contact Info) Description 07/15/2024 9:00 AM EST Hospital Encounter [facility] Interventional Radiology [address] [place] [place] [phone] Herve Carrillo MD 3130 [facility] 3200 [place] [phone] documented as of this encounter Visit Diagnoses Not on filedocumented in this encounter Additional Health Concerns Assessment Noted Time PHQ-9 Depression Total Score: 0 12/06/19 18 3:00 PM EDT documented as of this encounter Care Teams Technology Infusion Specialist Relationship Specialty Start Date End Date Edgar Fournier MD [address] [place] [address] [place] [address] PCP - General 08/18/17 06/23/21 Maile Valles, JANA Txp Post Coordinator Transplant Hepatology 11/07/17 Jack Ordoñez MD [address] [place] [phone] Consulting Physician Transplant Hepatology 01/05/18 Estephania Sharif, DarrianD Pharmacist Pharmacist 3/30/20 documented as of this encounter
--- OUTSIDE RECORDS SUMMARY | 2024-07-12 12:44 | XMS_ITS | Encounter Summary ---
Author Organization [facility] Address [address] [place] [address] Care Team Providers Care Therapeutic Recreation Leader Name Role Phone Edgar Fournier MD Primary Care Provider [phone] Maile Valles RN Unavailable Unavail able Jack Ordoñez MD Unavailable [phone] Estephania Sharif PharmD Unavailable Christine vailable [...] release of HIV test results or diagnoses. [id number] Reason for Visit * Reason Comments Medication Access Services Encounter Details Date Type Department Care Team (Late st Contact Info) Description 12/26/2019 Pharmacy Services [facility] [address] [place] [address] Elmira Hussein I, LUCIT Social History [...] as of this encounter Progress Notes * MERAYR Palma - 12/26/2019 12:45 PM EDT MEDICATION ACCESS SERVICES Submitted application for free [employer] to Phone Warrior to [facility] [place]. Medication Access to monitor. Elmira Hussein Medication Access Services phone fax documented in this encounter Plan of Treatment Upcoming Encounters Date Type Department Care Team (Late st Contact Info) Description 07/15/2024 9:00 AM EST Hospital Encounter [facility] Interventional Radiology [address] [place] [phone] Herve Carrillo MD 3130 [facility] 3200 [place] [address] documented as of this encounter Visit Diagnoses Not on filedocumented in this encounter Additional Health Concerns Assessment Noted Time PHQ-9 Depression Total Score: 0 12/06/19 18 3:00 PM EDT documented as of this encounter Care Teams Therapeutic Recreation Leader Relationship Specialty Start Date End Date Edgar Fournier MD [address] [place] [address] [place] [address] PCP - General 08/18/17 06/23/21 Maile Valles, JANA Txp Post Coordinator Transplant Hepatology 11/07/17 Jack Ordoñez MD [address] [place] [phone] Consulting Physician Transplant Hepatology 01/05/18 Estephania Sharif, PharmD Pharmacist Pharmacist 11/11/19 documented as of this encounter
--- OUTSIDE RECORDS SUMMARY | 2024-07-12 12:44 | XMS_ITS | Encounter Summary ---
Author Organization [facility] Address [address] [place] [address] Care Team Providers Care Car Mechanic Helper Name Role Phone Edgar Fournier MD Primary Care Provider [phone] Maile Valles RN Unavailable Unavail able Jack Ordoñez MD Unavailable [phone] Source Comments This information has been [...] release of HIV test results or diagnoses. [id number] Health Encounter Details Date Type Department Care Team (Late st Contact Info) Description 11/08/2019 Chart Note [facility] Weight Loss Center at [facility] [address] [place] [address] Maile Can MA Social History [...] [facility] Interventional Radiology [address] [place] [phone] Herve Carrillo MD 3130 [facility] 3200 [place] [phone] documented as of this encounter Visit Diagnoses Not on filedocumented in this encounter Additional Health Concerns Assessment Noted Time PHQ-9 Depression Total Score: 0 12/06/19 18 3:00 PM EDT documented as of this encounter Care Teams Car Mechanic Helper Relationship Specialty Start Date End Date Edgar Fournier MD [address] [place] [address] [place] [address] PCP - General 08/18/17 06/23/21 Maile Valles, JANA Txp Post Coordinator Transplant Hepatology 11/07/17 Jack Ordoñez MD [address] [place] [phone] Consulting Physician Transplant Hepatology 01/05/18 documented as of this encounter
--- OUTSIDE RECORDS SUMMARY | 2024-07-12 12:44 | XMS_ITS | Encounter Summary ---
Author Organization [facility] Address [facility]0 [place] [address] Care Team Providers Care Welder Helper Name Role Phone Edgar Fournier MD Primary Care Provider [phone] Maile Valles RN Unavailable Unavail able Jack Ordoñez MD Unavailable [phone] Source Comments This information has been [...] release of HIV test results or diagnoses. [id number] Reason for Visit * Reason Comments Results Encounter Details Date Type Department Care Team (Late st Contact Info) Description 09/20/2019 Telephone [facility] Liver Transplant at Outpatient [address] [address] Maile Valles, JANA Results Social History Tobacco [...] Telephone Encounter - Maile Valles RN - 09/23/2019 2:11 PM EST 5'NT result is 3 - normal. * Telephone Encounter - Maile Valles RN - 09/20/2019 3:48 PM EST Labs from 09/19/19 reviewed - patient was seen in clinic. Cr 4.43 - on HD. LFTs stable with mild Alk phos elevation. Cyclosporine level 32 CMV not detected. HBV not detected. 5'NT pending. documented in this encounter Plan of Treatment Upcoming Encounters Date Type Department Care Team (Late st Contact Info) Description 07/15/2024 9:00 AM EST Hospital Encounter [facility] Interventional Radiology [address] [place] [phone] Herve Carrillo MD 3130 [facility] 3200 [place] [address] documented as of this encounter Visit Diagnoses Not on filedocumented in this encounter Additional Health Concerns Assessment Noted Time PHQ-9 Depression Total Score: 0 12/06/19 18 3:00 PM EDT documented as of this encounter Care Teams Welder Helper Relationship Specialty Start Date End Date Edgar Fournier MD [address] [place] [address] [place] [address] PCP - General 08/18/17 06/23/21 Maile Valles RN Txp Post Coordinator Transplant Hepatology 11/07/17 Jack Ordoñez MD [address] [place] [phone] Consulting Physician Transplant Hepatology 01/05/18 documented as of this encounter
--- OUTSIDE RECORDS SUMMARY | 2024-07-12 12:44 | XMS_ITS | Encounter Summary ---
Author Organization Health Address [facility]0 [place] [address] Care Team Providers Care Clay Miller Name Role Phone Edgar Fournier MD Primary Care Provider [phone] Maile Valles RN Unavailable Unavail able Jack Ordoñez MD Unavailable [phone] Source Comments This information has been [...] release of HIV test results or diagnoses. [id number] Health Encounter Details Date Type Department Care Team (Late st Contact Info) Description 09/19/2019 Telephone [facility] Liver Transplant at Outpatient [address] [address] Jack Shaikh RN Social History Tobacco Use Types Packs/Day [...] encounter Miscellaneous Notes * Telephone Encounter - Jack Shaikh RN - 09/19/2019 1:58 PM EST CBC, Diff, and Renal Function Panel Lab orders updated documented in this encounter Plan of Treatment Upcoming Encounters Date Type Department Care Team (Late st Contact Info) Description 07/15/2024 9:00 AM EST Hospital Encounter [facility] Interventional Radiology [address] [place] [phone] Herve Carrillo MD 3130 [facility] 3200 Surgery [place] [phone] documented as of this encounter Visit Diagnoses Diagnosis S/P liver transplant (CMS-HCC)- Primary Encounter for therapeutic drug monitoring Immunosuppression (CMS-HCC) documented in this encounter Additional Health Concerns Assessment Noted Time PHQ-9 Depression Total Score: 0 12/06/19 18 3:00 PM EDT documented as of this encounter Care Teams Clay Miller Relationship Specialty Start Date End Date Edgar Fournier MD [address] [place] [address] [place] [address] PCP - General 08/18/17 06/23/21 Maile Valles, JANA Txp Post Coordinator Transplant Hepatology 11/07/17 Jack Ordoñez MD [address] [place] [phone] Consulting Physician Transplant Hepatology 01/05/18 documented as of this encounter
--- OUTSIDE RECORDS SUMMARY | 2024-07-12 12:44 | XMS_ITS | Encounter Summary ---
Author Organization [facility] Address [facility] [place] [address] Care Team Providers Care Forklift Truck Operator Name Role Phone Edgar Fournier MD Primary Care Provider [phone] Maile Valles RN Unavailable Unavail able Jack Ordoñez MD Unavailable [phone] Source Comments This information has been [...] release of HIV test results or diagnoses. [id number] Reason for Visit * Reason Comments Labs Only Encounter Details Date Type Department Care Team (Late st Contact Info) Description 09/19/2019 2:20 PM EST Specimen [facility] Outreach Lab [address] [place] [phone] Jack Ordoñez MD [address] [place] [phone] Liver transplanted (CMS-HCC); Immunosuppression (CMS-HCC); S/P liver transplant (CMS-HCC); Encounter for therapeutic drug monitoring [...] Encounter [facility] Interventional Radiology [address] [place] [phone] Herve Carrillo MD [address] [facility] Ed [address] [facility] [place] [phone] documented as of this encounter Procedures Procedure Name Priority Date/Time Associated Diagnosis Comments CYTOMEGALOVIRUS DNA, QUANT, RT PCR Routine 09/19/2019 2:18 PM EST Liver transplanted (CMS-HCC) Immunosuppression (CMS-HCC) 5'NUCLEOTIDASE Routine 09/19/2019 2:18 PM EST Liver transplanted (CMS-HCC) Immunosuppression (CMS-HCC) RENAL FUNCTION PANEL W/EGFR Routine 09/19/2019 2:18 PM EST S/P liver transplant (CMS-HCC) Encounter for therapeutic drug monitoring Immunosuppression (CMS-HCC) HEPATITIS B VIRUS (HBV), REAL-TIME PCR, QUANT Routine 09/19/2019 2:18 PM EST Liver transplanted (CMS-HCC) Immunosuppression (CMS-HCC) DIFFERENTIAL Routine 09/19/2019 2:18 PM EST S/P liver transplant (CMS-HCC) Encounter for therapeutic drug monitoring Immunosuppression (CMS-HCC) CBC Routine 09/19/2019 2:18 PM EST S/P liver transplant (CMS-HCC) Encounter for therapeutic drug monitoring Immunosuppression (CMS-HCC) documented in this encounter Results * (ABNORMAL) Renal Function Panel w/EGFR (09/19/2019 2:18 PM EST) Sodium 142 133 - 146 mmol/L 09/19/2019 3:04 PM EST [facility] Potassium 4.1 3.5 - 5.3 mmol/L 09/19/2019 3:04 PM EST [facility] Chloride 103 98 - 110 mmol/L 09/19/2019 3:04 PM EST [facility] CO2 33 21 - 33 mmol/L 09/19/2019 3:04 PM [facility] Anion Gap 6 3 - 16 mmol/L 09/19/2019 3:04 PM [facility] BUN 26(H) 7 - 25 mg/dL 09/19/2019 3:04 PM [facility] Creatinine 4.43(H) 0.60 - 1.30 mg/dL 09/19/2019 3:04 PM [facility] Glucose 193(H) 70 - 100 mg/dL 09/19/2019 3:04 PM [facility] Calcium 8.3(L) 8.6 - 10.3 mg/dL 09/19/2019 3:04 PM EST [facility] Phosphorus 3.5 2.1 - 4.7 mg/dL 09/19/2019 3:04 PM [facility] Albumin 3.6 3.5 - 5.7 g/dL 09/19/2019 3:04 PM EST [facility] Osmolality, Calculated 304 278 - 305 mOsm/kg 09/19/2019 3:04 PM EST [facility] eGFR AA CKD-EPI 17 See note. 0 3:04 PM [facility] Comment: As of 2015 the estimated [...] equation to estimate glomerular filtration rate. ??Jennifer System Designer Med. 2009:150(9):604-12 eGFR NONAA CKD-EPI 15 See note. 2019 3:04 PM EST [facility] Comment: As of 2015 the [...] equation to estimate glomerular filtration rate. ??Jennifer System Designer Med. 2009:150(9):604-12 Plasma specimen (specimen) 09/19/2019 2:18 PM EST 09/19/2019 2:30 PM EST Narrative [facility] - 09/19/2019 3:04 PM EST Standing Lab Frequency 1 Week to 4 Weeks, Frequency Varies With Need. Please Fax Results to [phone]. For Critical Results, Call [phone]. us Jack Ordoñez MD LAB BLOOD ORDERABLES Final Re sult [facility] [address] [place] [address], [facility] * (ABNORMAL) Differential (09/19/2019 2:18 PM EST) Neutrophils Relative 50.9 40.0 - 80.0 % 09/19/2019 2:44 PM EST [facility] Lymphocytes Relative 27.8 15.0 - 45.0 % 09/19/2019 2:44 PM EST [facility] Monocytes Relative 8.9 0.0 - 12.0 % 09/19/2019 2:44 PM EST [facility] Eosinophils Relative 12.2(H) 0.0 - 8.0 % 09/19/2019 2:44 PM EST [facility] Basophils Relative 0.2 0.0 - 1.0 % 09/19/2019 2:44 PM EST [facility] nRBC 1(H) 0 - 0 /100 WBC 09/19/2019 2:44 PM EST [facility] Neutrophils Absolute 1,934 1,500 - 7,800 /uL 09/19/2019 2:44 PM EST [facility] Lymphocytes Absolute 1,056 850 - 3,900 /uL 09/19/2019 2:44 PM EST [facility] Monocytes Absolute 338 200 - 950 /uL 09/19/2019 2:44 PM EST [facility] Eosinophils Absolute 464 15 - 500 /uL 09/19/2019 2:44 PM EST [facility] Basophils Absolute 8 0 - 200 /uL 09/19/2019 2:44 PM EST [facility] Whole blood specimen (specimen) 09/19/2019 2:18 PM EST 09/19/2019 2:31 PM EST Narrative [facility] - 09/19/2019 2:44 PM EST [facility] Lab Frequency 1 Week to 4 Weeks, Frequency Varies With Need. Please Fax Results to [phone]. For Critical Results, Call [phone]. Jack Ordoñez MD LAB BLOOD ORDERABLES Final Re sult [facility] [address] [place] [address], [facility] * (ABNORMAL) CBC (09/19/2019 2:18 PM EST) WBC 3.8 3.8 - 10.8 10E3/uL 09/19/2019 2:44 PM EST [facility] RBC 3.91(L) 4.20 - 5.80 10E6/uL 09/19/2019 2:44 PM EST [facility] Hemoglobin 11.9(L) 13.2 - 17.1 g/dL 09/19/2019 2:44 PM EST [facility] Hematocrit 35.5(L) 38.5 - 50.0 % 09/19/2019 2:44 PM EST [facility] MCV 91.0 80.0 - 100.0 fL 09/19/2019 2:44 PM EST [facility] MCH 30.5 27.0 - 33.0 pg 09/19/2019 2:44 PM EST [facility] MCHC 33.6 32.0 - 36.0 g/dL 09/19/2019 2:44 PM EST [facility] RDW 17.6(H) 11.0 - 15.0 % 09/19/2019 2:44 PM EST [facility] Platelets 175 140 - 400 10E3/uL 09/19/2019 2:44 PM EST [facility] MPV 7.1(L) 7.5 - 11.5 fL 09/19/2019 2:44 PM EST [facility] Whole blood specimen (specimen) 09/19/2019 2:18 PM EST 09/19/2019 2:31 PM EST Narrative [facility] - 09/19/2019 2:44 PM EST Standing Lab Frequency 1 Week to 4 Weeks, Frequency Varies With Need. Please Fax Results to [phone]. For Critical Results, Call [phone]. Jack Ordoñez MD LAB BLOOD ORDERABLES Final Re sult Performing Organization Address [facility] de Phone Number [facility] [address] [facility]. [address] * Cytomegalovirus DNA, Quant, RT PCR (09/19/2019 2:18 PM EST) CMV DNA Qnt Not Detected IU/mL 09/20/2019 9:54 AM EST [facility] Comment:Test methodology for CMV quantification is an FDA-approved nucleic acid amplification assay. The Lower Limit of Quantitation (LLOQ) is 137 IU/mL; the linear range is 137- 9,100,000 IU/mL. The limit of Detection is (LoD) is 91 IU/mL. Log10 CMV Qn DNA PI See Note log 10 IU/mL 09/20/2019 9:54 AM EST [facility] Comment:CMV DNA not detected Plasma specimen (specimen) 09/19/2019 2:18 PM EST 09/19/2019 3:12 PM EST Jack Ordoñez MD LAB BLOOD ORDERABLES Final Re sult Performing Organization Address [facility] Co de Phone Number [facility] [address] [facility]. [address] * Hepatitis B Virus (HBV), PCR, Quant (09/19/2019 2:18 PM EST) Hep B Viral DNA IU/ML Not Detected IU/mL 09/20/2019 2:52 PM EST [facility] Comment:Test methodology for HBV DNA quantification is an FDA-approved nucleic acid amplification assay. The Lower Limit of Quantitation (LLOQ) is 20 IU/mL. The linear range of the assay is 20- 170,000,000 IU/mL. log 10 HBV as IU/mL See Note log 10 IU/mL 09/20/2019 2:52 PM EST [facility] Comment: Unable to calculate result either because contributing result(s) are outside of reportable range or are not available. HBV DNA not detected. Serum specimen (specimen) 09/19/2019 2:18 PM EST 09/19/2019 3:13 PM EST Jack Ordoñez MD LAB BLOOD ORDERABLES Final Re sult Performing Organization Address [facility] Co de Phone Number [facility] [address] * 5' Nucleotidase (09/19/2019 2:18 PM EST) 5-Nucleotidase 3 0 - 10 IU/L 09/23/2019 1:57 PM EST [facility] Serum specimen (specimen) 09/19/2019 2:18 PM EST 09/23/2019 2:07 PM EST Narrative [facility] - 09/23/2019 2:07 PM EST PERFORMED AT: [address] [id number] VIDEO JOURNALIST: Jeny Pereyra MD ?? PHONE: [phone] Jack Ordoñez MD LAB BLOOD ORDERABLES Final Re sult Performing Organization Address [facility] Co de Phone Number [facility] [address] documented in this encounter Visit Diagnoses Diagnosis Liver transplanted (CMS-HCC) Liver replaced by transplant Immunosuppression (CMS-HCC) S/P liver transplant (CMS-HCC) Encounter for therapeutic drug monitoring documented in this encounter Additional Health Concerns Assessment Noted Time PHQ-9 Depression Total Score: 0 12/06/19 18 3:00 PM EDT documented as of this encounter Care Teams Forklift Truck Operator Relationship Specialty Start Date End Date Edgar Fournier MD [address] [place] [address] PCP - General 08/18/17 06/23/21 Maile Valles, JANA Txp Post Coordinator Transplant Hepatology 11/07/17 Jack Ordoñez MD [facility] [place] [address] Consulting Physician Transplant Hepatology 01/05/18 documented as of this encounter
--- OUTSIDE RECORDS SUMMARY | 2024-07-12 12:44 | XMS_ITS | Encounter Summary ---
Author Organization [facility] Address [address] [place] [address] Care Team Providers Care Cylinder Checker Name Role Phone Edgar Fournier MD Primary Care Provider [phone] Maile Valles RN Unavailable Unavail able Jack Ordoñez MD Unavailable [phone] Estephania Sharif PharmD Unavailable Christine vailable [...] release of HIV test results or diagnoses. [id number] Health Encounter Details Date Type Department Care Team (Late st Contact Info) Description 12/20/2019 Telephone [facility] Transplant Related Interdisciplinary Metabolic Surgery at [facility] [address] [address] Laurence Hernandez MA Social History [...] Telephone Encounter - Laurence Hernandez MA - 12/20/2019 2:53 PM EDT Pt's phone states that they are unavailable. Unable to leave message to schedule the next few appts. Will follow-up through [employer] documented in this encounter Plan of Treatment Upcoming Encounters Date Type Department Care Team (Late st Contact Info) Description 07/15/2024 9:00 AM EST Hospital Encounter [facility] Interventional Radiology [address] [place] [phone] Herve Carrillo MD [address] [facility] [address] [place] [address] documented as of this encounter Visit Diagnoses Not on filedocumented in this encounter Additional Health Concerns Assessment Noted Time PHQ-9 Depression Total Score: 0 12/06/19 18 3:00 PM EDT documented as of this encounter Care Teams Cylinder Checker Relationship Specialty Start Date End Date Edgar Fournier MD [address] [place] [address] [place] [address] PCP - General 08/18/17 06/23/21 Maile Valles, RN Txp Post Coordinator Transplant Hepatology 11/07/17 Jack Ordoñez MD [address] [place] [phone] Consulting Physician Transplant Hepatology 01/05/18 Estephania Sharif, PharmD Pharmacist Pharmacist 11/11/19 documented as of this encounter
--- OUTSIDE RECORDS SUMMARY | 2024-07-12 12:44 | XMS_ITS | Encounter Summary ---
Author Organization [facility] Address [facility] [place] [address] Care Team Providers Care Senior Storage Engineer Name Role Phone Edgar Fournier MD Primary Care Provider [phone] Maile Valles RN Unavailable Unavail able Jack Ordoñez MD Unavailable [phone] Estephania Sharif PharmD Unavailable Christine vailable [...] release of HIV test results or diagnoses. [id number] Reason for Visit * Auth/Cert Specialty Diagnoses / Procedures Referred By Declan t Referred To Contact Cardiology [facility] Nuclear Cardiology [address] [place] [phone] Phone: tel: Referral ID Status Reason Start Date Expiration Date Visits Re quested Visits Authorized [id number] 1 1 Encounter Details Date Type Department Care Team (Late st Contact Info) Description 12/19/2019 1:05 PM EDT Office Visit [facility] Liver Transplant at [facility] [address] [place] [address], [place] [phone] Jack Ordoñez MD [address] [place] [address] Liver transplanted (CMS-HCC) (Primary Dx); Immunosuppression (CMS-HCC) Social History Tobacco Use Types Packs/Day [...] as of this encounter Progress Notes * Jack Ordoñez MD - 12/19/2019 1:05 PM EDT Subjective: Aiden Stauffer Jr. is a 44 y.o. 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 The patient was last seen in Aug 2018. He received a [facility] high risk donor, who was HBV ALEXANDRA +, HCV Ab+, ALEXANDRA negative and therefore will be on lifelong entecavir. Post-operative course was complicated by altered mental status and severe tremors thought to be related to tacrolimus toxicity, as well as hypoxia. He received one dose of thymoglobulin .Co- morbidities include obesity, HTN, and IDDM. INTERVAL HX: Last seen Sep 2019. Current IS: CSA 50 mg BID and Cellcept 250 mg BID. He is on renally dosed entecavir lifelong. Labs on 11/14 reflect normal LFT s. Last CSA level in Sep was 32. Since last visit, he has had a AVF placed for HD (5-6 weeks ago)--doing currently doing home HD. Additionally developedshingles earlier in this month. He was seen yesterday by Dr Trivedi for consideration of bariatric juan luis gwen. He cannot be considered for kidney transplant due to BMI > 40. He has no complaints today and is is hopeful he will get a weigth loss surgery. The following portions of the patient's history were reviewed and updated as appropriate: allergies, current medications, past family history, past medical history, past social history, past surgicalhistory and problem list. Comprehensive review of systems performed. See scanned review of systems form for details. An extensive review of past records including prior office notes, labs, imaging, and pathology reports was performed from the Media tab, Care Everywhere and paper documents. Objective: Limited d/t phone visit Gen: no acute distress, conversant, pleasant Pulm: unlabored, unable to complete full sentences Neurological: The patient is alert and oriented to person, place, and time. Psych: normal affect, no SI/HI Labs: The patient's recent laboratory results were reviewed. Assessment & Plan: 43 year old male who is s/p OLT in Sep 2017 for SAL cirrhosis. The patient's post transplant course has been complicated by AMS requiring switch to cyclosporine, ESRD and HTN. He received a HBV ALEXANDRA positive and HCV antibody / ALEXANDRA negative organ and remains on Entecavir. Recommend all family members / sexual partners be vaccinated to Hep B. Plan: -Continue cyclosporine 50 mg twice daily. -??Continue Cellcept 250 mg twice daily -??Would check labs every month including: CBC, renal, hepatic profile, and cyclosporine [...] for HBcAb+ liver. Entecavir 0.5 mg weekly. -morbid obesity: established with Dr Trivedi for consideration of surgery -ESRD: not eligible for kidney txp per 10/04 chart note due to BMI RTC in 4 mos Krishna Duggan MD Transplant Hepatology Fellow (p) [phone] Attending Physician's Note: I have personally seen and examined the patient, have discussed the case with Dr. Duggan, agree with fellow note and confirm it. Please see Dr. Duggan's note for more details Rakesh Ordoñez MD Transplant Engine Oiler This was a phone conversation in lieu [...] Hospital Encounter [facility] Interventional Radiology [address] [place] [phone] Herve Carrillo MD [address] [facility] [address] [place] [phone] documented as of this encounter Visit Diagnoses Diagnosis Liver transplanted ([facility]-HCC)- Primary Liver replaced by transplant Immunosuppression (CMS-HCC) documented in this encounter Additional Health Concerns Assessment Noted Time PHQ-9 Depression Total Score: 0 12/06/19 18 3:00 PM EDT documented as of this encounter Care Teams Senior Storage Engineer Relationship Specialty Start Date End Date Edgar Fournier MD [address] [place] [address] [place]s [phone] PCP - General 08/18/17 06/23/21 Maile Valles, JANA Txp Post Coordinator Transplant Hepatology 11/07/17 Jack Ordoñez MD [address] [place] [phone] Consulting Physician Transplant Hepatology 01/05/18 Estephania Sharif, DarrianD Pharmacist Pharmacist 11/11/19 documented as of this encounter
--- OUTSIDE RECORDS SUMMARY | 2024-07-12 12:44 | XMS_ITS | Encounter Summary ---
Author Organization [facility] Address [address] [place] [address] Care Team Providers Care Engineering Professionals Name Role Phone Edgar Fournier MD Primary Care Provider [phone] Maile Valles RN Unavailable Unavail able Jack Ordoñez MD Unavailable [phone] Source Comments This information has been [...] release of HIV test results or diagnoses. [id number] Reason for Visit * Reason Comments Medication Access Services Encounter Details Date Type Department Care Team (Late st Contact Info) Description 09/19/2019 Pharmacy Services [facility] [address] [place] [id number] Elmira Hussein RXT Social History Tobacco [...] this encounter Progress Notes * Elmira Hussein, MERARY - 09/19/2019 9:52 AM EST [facility] Patient referred to [facility] for help with his Gengraf. Spoke to patient about application for free medication through [employer] Patient Assistance. Patient states $0 income. I will write a financial hardship letter to include with application. Patient is going to stop in at [facility] in [facility]. His paperwork will be in Elmira's mailbox. Please have patient sign application and fill in value of assets (highlighted lines). Elmira Hussein [facility] phone fax documented in this encounter Plan of Treatment Upcoming Encounters Date Type Department Care Team (Late st Contact Info) Description 07/15/2024 9:00 AM EST Hospital Encounter [facility] Interventional Radiology [address] [place] [phone] Herve Carrillo MD 3130 [facility] 3[address] Surgery [place] [phone] documented as of this encounter Visit Diagnoses Not on filedocumented in this encounter Additional Health Concerns Assessment Noted Time PHQ-9 Depression Total Score: 0 12/06/19 18 3:00 PM EDT documented as of this encounter Care Teams Engineering Professionals Relationship Specialty Start Date End Date Edgar Fournier MD [address] [place] [address] [place] [address] PCP - General 08/18/17 06/23/21 Maile Valles, JANA Txp Post Coordinator Transplant Hepatology 11/07/17 Jack Ordoñez MD [facility]8 [place] [address] Consulting Physician Transplant Hepatology 01/05/18 documented as of this encounter
--- OUTSIDE RECORDS SUMMARY | 2024-07-12 12:44 | XMS_ITS | Encounter Summary ---
Author Organization [facility] Address [address] [place] [address] Care Team Providers Care Top Closer Name Role Phone Edgar Fournier MD Primary Care Provider [phone] Maile Valles RN Unavailable Unavail able Jack Ordoñez MD Unavailable [phone] Source Comments This information has been [...] release of HIV test results or diagnoses. [id number] Reason for Visit * Reason Comments Medication Access Services Encounter Details Date Type Department Care Team (Late st Contact Info) Description 11/05/2019 Pharmacy Services [facility] [address] [place] [phone] Elmira Hussein RXT Social History Tobacco [...] encounter Progress Notes * MERARY Palma - 11/05/2019 11:11 AM EDT MEDICATION ACCESS SERVICES Patient is APPROVED to receive free Gengraf through [employer] Patient Assistance Soft Tissue Regeneration. Patient is enrolled through 11/02/2020. First shipment to be delivered to [facility] in 7 - 10 business days. Elmira Hussein [facility] phone fax documented in this encounter Plan of Treatment Upcoming Encounters Date Type Department Care Team (Late st Contact Info) Description 07/15/2024 9:00 AM EST Hospital Encounter [facility] Interventional Radiology [address] [place] [phone] Herve Carrillo MD 3130 [facility] [address] [place] [phone] documented as of this encounter Visit Diagnoses Not on filedocumented in this encounter Additional Health Concerns Assessment Noted Time PHQ-9 Depression Total Score: 0 12/06/19 18 3:00 PM EDT documented as of this encounter Care Teams Top Closer Relationship Specialty Start Date End Date Edgar Fournier MD [address] [place] [address] [place] [address] PCP - General 08/18/17 06/23/21 Maile Valles, JANA Txp Post Coordinator Transplant Hepatology 11/07/17 Jack Ordoñez MD [address] [place] [phone] Consulting Physician Transplant Hepatology 01/05/18 documented as of this encounter
--- OUTSIDE RECORDS SUMMARY | 2024-07-12 12:44 | XMS_ITS | Encounter Summary ---
Author Organization [facility] Address [facility] [place] [address] Care Team Providers Care Sizer Machine Name Role Phone Edgar Fournier MD Primary Care Provider [phone] Maile Valles RN Unavailable Unavail able Jack Ordoñez MD Unavailable [phone] Estephania Sharif PharmD Unavailable Christine vailable [...] release of HIV test results or diagnoses. [id number] Health Encounter Details Date Type Department Care Team (Late st Contact Info) Description 11/15/2019 Chart Note [facility] Liver Transplant at [facility] [address] [place] [address] Macie Muhammad MA Social History Tobacco Use Types [...] [facility] Interventional Radiology [address] [place] [address] Herve Carrillo MD 3159 [facility] 3200 Surgery [place] [phone] documented as of this encounter Procedures Procedure Name Priority Date/Time Associated Diagnosis Comments HEPATIC FUNCTION PANEL Routine 11/15/2019 7:55 AM EDT RENAL FUNCTION PANEL W/O EGFR Routine 11/15/2019 7:55 AM EDT documented in this encounter Results * (ABNORMAL) Renal Function Panel w/o EGFR (11/15/2019 7:55 AM EDT) BUN/Creatinine Ratio 7.1 Glucose 165 mg/dL BUN 55(A) 4 - 21 mg/dL CO2 28(A) 13 - 22 mmol/L Creatinine 7.7(A) 0.6 - 1.3 mg/dL Potassium 4.6 3.4 - 5.3 mmol/L Sodium 142 137 - 147 mmol/L Chloride 103 99 - 108 mmol/L Albumin 3.2 Phosphorus 6.7(A) 2.5 - 4.9 mg/dL Calcium 6.9(A) 8.7 - 10.7 mg/dL EGFR 8 mg/dL Blood specimen (specimen) us Historical Provider LAB BLOOD ORDERABLES Yoselin l Result * Hepatic Function Panel (11/15/2019 7:55 AM EDT) Alkaline Phosphatase 138 U/L ALT 22 U/L AST 14 U/L Total Bilirubin 0.2 0.1 - 1.4 mg/dL Bilirubin, Direct 0.1 0.01 - 0.4 mg/dL Total Protein 6.9 6.4 - 8.2 g/dL Plasma specimen (specimen) us Historical Provider LAB BLOOD ORDERABLES Yoselin l Result documented in this encounter Visit Diagnoses Not on filedocumented in this encounter Additional Health Concerns Assessment Noted Time PHQ-9 Depression Total Score: 0 12/06/19 18 3:00 PM EDT documented as of this encounter Care Teams Sizer Machine Relationship Specialty Start Date End Date Edgar Fournier MD [address] [place] [address] [place] [address] PCP - General 08/18/17 06/23/21 Maile Valles, RN Txp Post Coordinator Transplant Hepatology 11/07/17 Jack Ordoñez MD [address] [place] [phone] Consulting Physician Transplant Hepatology 01/05/18 Estephania Sharif, DarrianD Pharmacist Pharmacist 11/11/19 documented as of this encounter
--- OUTSIDE RECORDS SUMMARY | 2024-07-12 12:44 | XMS_ITS | Encounter Summary ---
Author Organization [facility] Address [address] [place] [address] Care Team Providers Care Management Architect Name Role Phone Edgar Fournier MD Primary Care Provider [phone] Maile Valles RN Unavailable Unavail able Jack Ordoñez MD Unavailable [phone] Estephania Sharif PharmD Unavailable Christine vailable [...] release of HIV test results or diagnoses. [id number] Reason for Visit * Reason Comments Medication Access Services Encounter Details Date Type Department Care Team (Late st Contact Info) Description 12/27/2019 Pharmacy Services [facility] [address] [place] [address] Elmira Hussein I, LUCIT Social History [...] Progress Notes * MERARY [place] - 12/27/2019 8:17 AM EDT MEDICATION ACCESS SERVICES Patient is APPROVED for enrollment with [employer] [facility] for free Cellcept. Patient is enrolled through 12/24/2020. Elmira Hussein Medication Access Services phone fax documented in this encounter Plan of Treatment Upcoming Encounters Date Type Department Care Team (Late st Contact Info) Description 07/15/2024 9:00 AM EST Hospital Encounter [facility] Interventional Radiology [address] [place] [address] Herve Carrillo MD 3130 [facility] 3200 [place] [phone] documented as of this encounter Visit Diagnoses Not on filedocumented in this encounter Additional Health Concerns Assessment Noted Time PHQ-9 Depression Total Score: 0 12/06/19 18 3:00 PM EDT documented as of this encounter Care Teams Management Architect Relationship Specialty Start Date End Date Edgar Fournier MD [address] [place] [address] [place] [address] PCP - General 08/18/17 06/23/21 Maile Valles, JANA Txp Post Coordinator Transplant Hepatology 11/07/17 Jack Ordoñez MD [address] [place] [phone] Consulting Physician Transplant Hepatology 01/05/18 Estephania Sharif, DarrianD Pharmacist Pharmacist 11/11/19 documented as of this encounter
--- OUTSIDE RECORDS SUMMARY | 2024-07-12 12:44 | XMS_ITS | Encounter Summary ---
Author Organization [facility] Address [address] [place] [address] Care Team Providers Care Aviation Electrician Name Role Phone Edgar Fournier MD Primary Care Provider [phone] Maile Valles RN Unavailable Unavail able Jack Ordoñez MD Unavailable [phone] Estephania Sharif PharmD Unavailable Christine vailable [...] release of HIV test results or diagnoses. [id number] Reason for Visit * Reason Comments Medication Access Services Encounter Details Date Type Department Care Team (Late st Contact Info) Description 12/13/[address] [facility] [address] [place] [address] Elmira Hussein I, LUCIT Social History [...] Progress Notes * MERARY [place] - 12/13/2019 2:05 PM EDT MEDICATION ACCESS SERVICES Emailed application for free Cellcept to patient for signature (this is the 3rd Cellcept application to be sent to patient). Elmira Hussein Medication Access Services phone fax documented in this encounter Plan of Treatment Upcoming Encounters Date Type Department Care Team (Late st Contact Info) Description 07/15/2024 9:00 AM EST Hospital Encounter [facility] Interventional Radiology [address] [place] [phone] Herve Carrillo MD 3130 [facility] 3200 [place] [phone] documented as of this encounter Visit Diagnoses Not on filedocumented in this encounter Additional Health Concerns Assessment Noted Time PHQ-9 Depression Total Score: 0 12/06/19 18 3:00 PM EDT documented as of this encounter Care Teams Aviation Electrician Relationship Specialty Start Date End Date Edgar Fournier MD [address] [place] [address] [place] [address] PCP - General 08/18/17 06/23/21 Maile Valles, JANA Txp Post Coordinator Transplant Hepatology 11/07/17 Jack Ordoñez MD [address] [place] [phone] Consulting Physician Transplant Hepatology 01/05/18 Estephania Sharif, PharmD Pharmacist Pharmacist 11/11/19 documented as of this encounter
--- OUTSIDE RECORDS SUMMARY | 2024-07-12 12:44 | XMS_ITS | Encounter Summary ---
Author Organization [facility] Address [address] [place] [address] Care Team Providers Care Pusher Runner Name Role Phone Edgar Fournier MD Primary Care Provider [phone] Maile Valles RN Unavailable Unavail able Jack Ordoñez MD Unavailable [phone] Estephania Sharif PharmD Unavailable Christine vailable [...] release of HIV test results or diagnoses. [id number] Health Encounter Details Date Type Department Care Team (Late st Contact Info) Description 11/11/2019 Chart Note [facility] [address] [place] [address] Judi Khan RPh [facility] Note Social History Tobacco Use Types Packs/Day Years [...] of this encounter Progress Notes * Judi Chilton, [facility] - 11/11/2019 4:46 PM EDT [facility] Note Initial Pharmacist Assessment Aiden Stauffer is a 44 y.o. patient who has a past medical history of Acute pancreatitis, Ascites, Diabetes mellitus (CMS Dx), Esophageal varices with bleeding (CMS Dx), GERD (gastroesophageal refluxdisease), Hepatic encephalopathy (CMS Dx), Hypertension, Liver cirrhosis secondary to SAL (CMS Dx), and Vitamin D deficiency. Patient received a liver transplant on 10/08/2017. Pt's current immunosupressive regimen is: cyclosporine modified 50 mg twice daily, mycophenolate 250 mg twice daily. [facility] has been filling prescriptions for the following medications: Gengraf 25 mg capsules. Chart reviewed for diagnosis, medication appropriateness (including dose and duration) and potential interactions. Treatment based on AASLD guidelines and 's liver transplant protocol. Contacted patient, who is new to [facility], via telephone to discuss medication refills and compliance. Patient's prescription and non-prescription medications and natural supplements were reviewed and updated. Medication changes: none in last 30 days Allergies: codeine Specialty Pharmacy Care Management Plan ?? Discussed indication, dose, administration and potential side effects. Patient verbalized understanding. States zero missed doses; denies any issues with nausea, vomiting, diarrhea, constipation, tremors, and/or headaches. ?? Recommended monitoring: per protocol ?? PCP Contact: Dr. Edgar Fournier - ?? Issues identified during telephone call: may need to pursue copay assistance for mycophenolate (Cellcept) ?? Prescription will be filled by [facility]. Method of delivery: shipped via [employer] by end of day 11/12/19. Patient should receive 11/13/19. ?? Needs assessment: none identified ?? Strategies to address needs: not applicable ?? Patient's motivation: high ?? Goals and time frame: lifelong medication compliance to prevent organ rejection ?? Resources available to implement care management plan: patient assistance program ?? Reviewed the role of specialty pharmacy. Welcome packet was provided with first order which includes bill of rights, privacy notice, pharmacy contact information (including 24- hour nurse practitioner hospitalist pharmacist), hours of operations, complaint process, refill procedure, information about patient assistance programs and patient management program (including opt-out option). ?? Specialty pharmacy staff will contact patient prior to next refill due date for assessment of adherence, side effects, labs, and patient consent to bill/ship. Routed note to provider for review. Judi Khan PharmD, [facility] Clinical Branch Operation Evaluation Manager - Transplant [facility] [phone] (phone) [phone] (pager) 11/11/2019, 4:48 PM documented in this encounter Plan of Treatment Upcoming Encounters Date Type Department Care Team (Late st Contact Info) Description 07/15/2024 9:00 AM EST Hospital Encounter [facility] Interventional Radiology [address] [place] [phone] Herve Carrillo MD 3130 [facility] 3200 [place] [phone] documented as of this encounter Visit Diagnoses Not on filedocumented in this encounter Additional Health Concerns Assessment Noted Time PHQ-9 Depression Total Score: 0 12/06/19 18 3:00 PM EDT documented as of this encounter Care Teams Pusher Runner Relationship Specialty Start Date End Date Edgar Fournier MD [address] [place] [address] [place] [address] PCP - General 08/18/17 06/23/21 Maile Valles, JANA Txp Post Coordinator Transplant Hepatology 11/07/17 Jack Ordoñez MD [address] [place] [phone] Consulting Physician Transplant Hepatology 01/05/18 Estephania Sharif PharmD Pharmacist Pharmacist 11/11/19 documented as of this encounter
--- OUTSIDE RECORDS SUMMARY | 2024-07-12 12:44 | XMS_ITS | Encounter Summary ---
Author Organization [facility] Address [address] [place] [address] Care Team Providers Care Assistant Spa Director Name Role Phone Edgar Fournier MD Primary Care Provider [phone] Maile Valles RN Unavailable Unavail able Jack Ordoñez MD Unavailable [phone] Estephania Sharif PharmD Unavailable Christine vailable [...] release of HIV test results or diagnoses. [id number] Health Encounter Details Date Type Department Care Team (Late st Contact Info) Description 12/18/2019 Orders Only [facility] Transplant Surgery at [facility] [address] [facility] 7000 [place] [address] Hung Trivedi MD [address] [place] [address] Pre-op evaluation (Primary Dx); Morbid obesity (CMS-HCC) Social History Tobacco Use [...] [facility] Interventional Radiology [address] [place] [address] Herve Carrillo MD 3130 [facility] 3200 Surgery [place] [address] documented as of this encounter Results * (ABNORMAL) Lipid Profile (01/27/2020 1:57 PM EDT) Cholesterol, Total 236(H) 0 - 200 mg/dL 01/27/2020 3:07 PM EDT [facility] Triglycerides 303(H) 10 - 149 mg/dL 01/27/2020 3:07 PM EDT [facility] HDL 32(L) 60 - 92 mg/dL [...] Cholesterol 143 mg/dL 0 3:07 PM EDT [facility]ALTH [facility] Plasma specimen (specimen) 01/27/2020 1:57 PM EDT 01/27/2020 2:33 PM EDT Narrative HEALTH LAB - 01/27/2020 3:07 PM EDT Must the patient be fasting for this test?->No us Hung Trivedi MD LAB BLOOD ORDERABLES Final Resul t [facility] [address] [facility] [place] [address], [facility] * (ABNORMAL) Hemoglobin A1c (01/27/2020 1:57 [...] 1:57 PM EDT 01/27/2020 2:27 PM EDT Hung Trivedi MD LAB BLOOD ORDERABLES Final Resul t Performing Organization Address [facility] de Phone Number [facility] [address] * TSH (Thyroid Stimulating Hormone) (01/27/2020 1:57 PM EDT) Pathologist [facility] TSH 3.59 0.45 - 4.12 uIU/mL 01/27/2020 3:18 PM EDT [facility] Serum specimen (specimen) 01/27/2020 1:57 PM EDT 01/27/2020 2:33 PM EDT Hung Trivedi MD LAB BLOOD ORDERABLES Final Resul t Performing Organization Address [facility] de Phone Number [facility] [address] * Spirometry with/without bronchodilator (01/27/2020 12:51 PM EDT) FEV1 3.14 [facility] FEV1% 82 [facility] FVC 4.41 [facility] FVC% 91 [facility] FEV1/FVC 71 [facility] FEV1/FVC EXP 79 [facility] RESPONSE TO BRONCHODILATOR 1% FVC, 1% FEV1 [facility] 01/27/2020 12:5 1 PM EDT Impressions [facility] - 01/27/2020 1:29 PM EDT [facility] PULMONARY FUNCTION LABORATORY Pulmonary Function Tests Interpretation Aiden Stauffer Jr. is a 44 y.o. male who had a pulmonary function test performed at the [facility] Pulmonary Function Laboratory. Spirometry is normal. There is no response to bronchodilator demonstrated. Read performed by: Lan Birch MD 01/27/2020 1:42 PM us Hung Trivedi MD PFT ORDERABLES Final Result [facility] [address] [place] [address] documented in this encounter Visit Diagnoses Diagnosis Pre-op evaluation- Primary Morbid obesity (CMS-HCC) Morbid obesity Pre-op evaluation Morbid obesity (CMS-HCC) Morbid obesity S/P liver transplant (CMS-HCC) Encounter for therapeutic drug monitoring Immunosuppression (CMS-HCC) Pre-op evaluation Morbid obesity (CMS-HCC) Morbid obesity documented in this encounter Additional Health Concerns Assessment Noted Time PHQ-9 Depression Total Score: 0 12/06/19 18 3:00 PM EDT documented as of this encounter Care Teams Assistant Spa Director Relationship Specialty Start Date End Date Edgar Fournier MD [address] [place] [phone] PCP - General 08/18/17 06/23/21 Maile Valles, JANA Txp Post Coordinator Transplant Hepatology 11/07/17 Jack Ordoñez MD [address] [place] [phone] Consulting Physician Transplant Hepatology 01/05/18 Estephania Sharif, DarrianD Pharmacist Pharmacist 11/11/19 documented as of this encounter
--- OUTSIDE RECORDS SUMMARY | 2024-07-12 12:44 | XMS_ITS | Encounter Summary ---
Author Organization [facility] Address [address] [place] [address] Care Team Providers Care Failure Analysis Engineer Name Role Phone Edgar Fournier MD Primary Care Provider [phone] Maile Valles RN Unavailable Unavail able Jack Ordoñez MD Unavailable [phone] Estephania Sharif PharmD Unavailable Christine vailable [...] release of HIV test results or diagnoses. [id number] Reason for Visit * Reason Comments Pap Medication Refill Encounter Details Date Type Department Care Team (Late st Contact Info) Description 12/13/2019 Pharmacy Services [facility] [address] [place] [address] Elmira Hussein I, RXT Social History [...] of this encounter Progress Notes * Elmira Hussein RXT - 12/13/2019 10:17 AM EDT MEDICATION ACCESS SERVICES Refill reordered for Gengraf from [employer] [facility]. Drug will be delivered to [facility] in 3 - 5 business days. Doctor MICHELE expiration was required in order for drug to ship. MICHELE expiration added to prescription and re-faxed 12/19/2019. Elmira Hussein Medication Access Services phone fax documented in this encounter Plan of Treatment Upcoming Encounters Date Type Department Care Team (Late st Contact Info) Description 07/15/2024 9:00 AM [facility] Hospital Encounter [facility] Interventional Radiology [address] [place] [address] Herve Carrillo MD 3130 [facility] 3200 Surgery [place] [address] documented as of this encounter Visit Diagnoses Not on filedocumented in this encounter Additional Health Concerns Assessment Noted Time PHQ-9 Depression Total Score: 0 12/06/19 18 3:00 PM EDT documented as of this encounter Care Teams Failure Analysis Engineer Relationship Specialty Start Date End Date Edgar Fournier MD [address] [place] [address] [place] [address] PCP - General 08/18/17 06/23/21 Maile Valles, RN Txp Post Coordinator Transplant Hepatology 11/07/17 Jack Ordoñez MD [facility] [place] [address] Consulting Physician Transplant Hepatology 01/05/18 Estephania Sharif, DarrianD Pharmacist Pharmacist 11/11/19 documented as of this encounter
--- OUTSIDE RECORDS SUMMARY | 2024-07-12 12:44 | XMS_ITS | Encounter Summary ---
Author Organization [facility] Address [address] [place] [address] Care Team Providers Care Benefits Clerk Name Role Phone Edgar Fournier MD Primary Care Provider [phone] Maile Valles RN Unavailable Unavail able Jack Ordoñez MD Unavailable [phone] Source Comments This information has been [...] release of HIV test results or diagnoses. [id number] Reason for Visit * Reason Comments Mas Patient Interview Encounter Details Date Type Department Care Team (Late st Contact Info) Description 09/19/2019 Pharmacy Services [facility] at [place] [id number] [place] [address] Chikis Phelps Social History Tobacco Use Types Packs/Day Years [...] as of this encounter Progress Notes * Chikis Phelps - 09/19/2019 2:43 PM EST MEDICATION ACCESS SERVICES Mr. Stauffer came and signed the paperwork for Gengraf. Chikis Phelps, [facility] Medication Access Services - Infusion Specialist [phone] documented in this encounter Plan of Treatment Upcoming Encounters Date Type Department Care Team (Late st Contact Info) Description 07/15/2024 9:00 AM EST Hospital Encounter [facility] Interventional Radiology [address] [place] [phone] Herve Carrillo MD 3130 [facility] 3200 [place] [phone] documented as of this encounter Visit Diagnoses Not on filedocumented in this encounter Additional Health Concerns Assessment Noted Time PHQ-9 Depression Total Score: 0 12/06/19 18 3:00 PM EDT documented as of this encounter Care Teams Benefits Clerk Relationship Specialty Start Date End Date Edgar Fournier MD [address] [place] [address] [place] [address] PCP - General 08/18/17 06/23/21 Maile Valles, RN Txp Post Coordinator Transplant Hepatology 11/07/17 Jack Ordoñez MD [address] [place] [phone] Consulting Physician Transplant Hepatology 01/05/18 documented as of this encounter
--- OUTSIDE RECORDS SUMMARY | 2024-07-12 12:44 | XMS_ITS | Encounter Summary ---
Author Organization [facility] Address [address] [place] [address] Care Team Providers Care Juice Packaging Machines Setter Name Role Phone Edgar Fournier MD Primary Care Provider [phone] Maile Valles RN Unavailable Unavail able Jack Ordoñez MD Unavailable [phone] Estephania Sharif PharmD Unavailable Christine vailable [...] release of HIV test results or diagnoses. [id number] Reason for Visit * Reason Comments Medication Refill Encounter Details Date Type Department Care Team (Late st Contact Info) Description 11/11/2019 Refill [facility] Internal Medicine at [address] [place] [address] Ijeoma Brooke MD [address] [facility] [place] [address] Social History Tobacco Use Types [...] Hospital Encounter [facility] Interventional Radiology [address] [place] [phone] Herve Carrillo MD 3130 [facility] 3200 [place] [phone] documented as of this encounter Visit Diagnoses Not on filedocumented in this encounter Additional Health Concerns Assessment Noted Time PHQ-9 Depression Total Score: 0 12/06/19 18 3:00 PM EDT documented as of this encounter Care Teams Juice Packaging Machines Setter Relationship Specialty Start Date End Date Edgar Fournier MD [address] [place] [address] [place] [address] PCP - General 08/18/17 06/23/21 Maile Valles, JANA Txp Post Coordinator Transplant Hepatology 11/07/17 Jack Ordoñez MD [address] [place] [phone] Consulting Physician Transplant Hepatology 01/05/18 Estephania Sharif, DarrianD Pharmacist Pharmacist 11/11/19 documented as of this encounter
--- OUTSIDE RECORDS SUMMARY | 2024-07-12 12:45 | XMS_ITS | Encounter Summary ---
Author Organization Health Address [address] [place] [address] Care Team Providers Care Hop Separator Name Role Phone Edgar Fournier MD Primary Care Provider [phone] Maile Valles RN Unavailable Unavail able Jack Ordoñez MD Unavailable [phone] Source Comments This information has been [...] release of HIV test results or diagnoses. [id number] Health Encounter Details Date Type Department Care Team (Late st Contact Info) Description 07/29/2019 Telephone [facility] Gastroenterology at [facility] [address] [facility] [address] [place] [address] Viri Pineda MD [address] [place], [place] [phone] Social History Tobacco Use Types Packs/Day Years [...] encounter Miscellaneous Notes * Telephone Encounter - Viri Pineda MD - 07/29/2019 4:50 PM EST GI Note Reviewed pathology from EGD for odynophagia and oropharyngeal ulcers performed on 07/24/19, biopsies of esophageal nodule. FINAL DIAGNOSIS: Esophagus, lower esophageal nodule, biopsy: - ??Polypoid fragment of ulcerated squamous mucosa with acute and chronic inflammation, granulationtissue formation, reactive changes, and nuclear and cytoplasmic viral inclusions, consistent with CMV esophagitis. 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 - ??No evidence of dysplasia or malignancy. Reviewed with Dr. Castillo in Pathology, consistent with tissue-invasive CMV infection. Also discussed with Dr. Ordoñez. Spoke to data security coordinator Maile Valles RN, patient with need direct admission,preferably to GI daniel service for IV ganciclovir. On admission, will need serum CMV DNA sent and transplant ID consult. Patient will be contacted regarding above information and also when a bed is available. Dr. Alcantar, current GI daniel attending, also made aware and is in agreement with admission. Viri Pineda MD Gastroenterology and Hepatology Fellow, PGY-5 Pager: [phone] (on weekdays after 5 pm and weekends/holidays, please page GI fellow mercerizing range controller) 07/29/2019 4:55 PM documented in this encounter Plan of Treatment Upcoming Encounters Date Type Department Care Team (Late st Contact Info) Description 07/15/2024 9:00 AM EST Hospital Encounter [facility] Interventional Radiology [address] [place] [phone] Herve Carrillo MD [address] [facility] [address] [facility] [place] [address] documented as of this encounter Visit Diagnoses Not on filedocumented in this encounter Additional Health Concerns Assessment Noted Time PHQ-9 Depression Total Score: 0 12/06/19 18 3:00 PM EDT documented as of this encounter Care Teams Hop Separator Relationship Specialty Start Date End Date Edgar Fournier MD [address] [place] [address] [place] [address] PCP - General 08/18/17 06/23/21 Maile Valles, JANA Txp Post Coordinator Transplant Hepatology 11/07/17 Jack Ordoñez MD [address] [place] [phone] Consulting Physician Transplant Hepatology 01/05/18 documented as of this encounter
--- OUTSIDE RECORDS SUMMARY | 2024-07-12 12:45 | XMS_ITS | Encounter Summary ---
Author Organization [facility] Address [facility] [place] [address] Care Team Providers Care [employer] Open Stack Administrator Name Role Phone Edgar Fournier MD Primary Care Provider [phone] Maile Valles RN Unavailable Unavail able Jack Ordoñez MD Unavailable [phone] Source Comments This information has been [...] release of HIV test results or diagnoses. [id number] Reason for Visit * Reason Onset Date Comments No Show 08/22/2019 HDF Encounter Details Date Type Department Care Team (Late st Contact Info) Description 08/22/2019 Telephone [facility] at [facility] [address] [facility] [address] [place] [address] Debra Luz [address] [place], [place] [phone] No Show (HDF) Social History Tobacco Use Types Packs/Day Years [...] encounter Miscellaneous Notes * Telephone Encounter - Debra Luz - 08/22/2019 10:59 AM EST ID NO SHOW PHONE CALL / HDF with Dr. Johnson on 08/20/2019 Unable to speak with the patient or leave a voice message documented in this encounter Plan of Treatment Upcoming Encounters Date Type Department Care Team (Late st Contact Info) Description 07/15/2024 9:00 AM EST Hospital Encounter [facility] Interventional Radiology [address] [place] [phone] Herve Carrillo MD [address] [facility] [address] [place] [phone] documented as of this encounter Visit Diagnoses Not on filedocumented in this encounter Additional Health Concerns Assessment Noted Time PHQ-9 Depression Total Score: 0 12/06/19 18 3:00 PM EDT documented as of this encounter Care Teams [employer] Open Stack Administrator Relationship Specialty Start Date End Date Edgar Fournier MD [address] [place] [address] [place] [address] PCP - General 08/18/17 06/23/21 Maile Valles, JANA Txp Post Coordinator Transplant Hepatology 11/07/17 Jack Ordoñez MD [address] [place] [phone] Consulting Physician Transplant Hepatology 01/05/18 documented as of this encounter
--- OUTSIDE RECORDS SUMMARY | 2024-07-12 12:45 | XMS_ITS | Encounter Summary ---
Author Organization Health Address [facility] [place] [address] Care Team Providers Care Manager Environmental Name Role Phone Edgar Fournier MD Primary Care Provider [phone] Maile Valles RN Unavailable Unavail able Jack Ordoñez MD Unavailable [phone] Source Comments This information has been [...] release of HIV test results or diagnoses. [id number] Health Encounter Details Date Type Department Care Team (Late st Contact Info) Description 08/05/2019 Orders Only [facility] [phone] Anne Whitt MA Transplanted liver ([facility]); Drug therapy Social History Tobacco Use Types [...] Progress Notes * Anne Whitt MA - 08/05/2019 2:13 PM EST Orders faxed to [facility] [phone] documented in this encounter Plan of Treatment Upcoming Encounters Date Type Department Care Team (Late st Contact Info) Description 07/15/2024 9:00 AM EST Hospital Encounter [facility] Interventional Radiology [address] [place] [address] Herve Carrillo MD [address] [facility] [address] [place] [phone] documented as of this encounter Visit Diagnoses Diagnosis 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
--- OUTSIDE RECORDS SUMMARY | 2024-07-12 12:45 | XMS_ITS | Encounter Summary ---
Author Organization [facility] Address [address] [place] [id number] Care Team Providers Care Cutting Torch Operator Name Role Phone Edgar Fournier MD Primary Care Provider [phone] Maile Valles RN Unavailable Unavail able Jack Ordoñez MD Unavailable [phone] Source Comments This information has been [...] release of HIV test results or diagnoses. [id number] Reason for Visit * Reason Comments Appointment Transfer to [facility] Encounter Details Date Type Department Care Team (Late st Contact Info) Description 09/11/2019 Telephone [facility] Weight Loss Center at [facility] [address] [place] [address] Christa Allison Appointment (Transfer to [facility]) Social History Tobacco Use Types Packs/Day Years [...] encounter Miscellaneous Notes * Telephone Encounter - Christa Allison - 09/11/2019 2:24 PM EST Spoke with [facility] who is helping patient transition to the [facility] program for bariatric surgery. All office visits including Psych are being faxed so that patient does not have to repeat any consults other that with the surgeon. This Patient Advocate will contact [facility] to schedule once records are received. documented in this encounter Plan of Treatment Upcoming Encounters Date Type Department Care Team (Late st Contact Info) Description 07/15/2024 9:00 AM EST Hospital Encounter [facility] Interventional Radiology [address] [place] [phone] Herve Carrillo MD [address] [facility] [address] [place] [phone] documented as of this encounter Visit Diagnoses Not on filedocumented in this encounter Additional Health Concerns Assessment Noted Time PHQ-9 Depression Total Score: 0 12/06/19 18 3:00 PM EDT documented as of this encounter Care Teams Cutting Torch Operator Relationship Specialty Start Date End Date Edgar Fournier MD [address] [place] [address] [place] [address] PCP - General 08/18/17 06/23/21 Maile Valles, JANA Txp Post Coordinator Transplant Hepatology 11/07/17 Jack Ordoñez MD [address] [place] [phone] Consulting Physician Transplant Hepatology 01/05/18 documented as of this encounter
--- OUTSIDE RECORDS SUMMARY | 2024-07-12 12:45 | XMS_ITS | Encounter Summary ---
Author Organization [facility] Address [address] [place] [address] Care Team Providers Care Perioperative Assistant Name Role Phone Edgar Fournier MD Primary Care Provider [phone] Maile Valles RN Unavailable Unavail able Jack Ordoñez MD Unavailable [phone] Estephania Sharif PharmD Unavailable Christine vailable [...] release of HIV test results or diagnoses. [id number] Reason for Referral * Transplants (Routine) - Closed Specialty Diagnoses / Procedures Referred By Contac t Referred To Contact [facility] Transplant Surgery Diagnoses Liver transplanted ([facility]) Immunosuppression ([facility]) Jack Ordoñez MD [address] [place] [address] Phone: tel: fax: Referral ID Status Reason Start Date Expiration Date Visits Re quested Visits Authorized [id number] Closed 09/19/2019 03/17/2020 1 1 Scheduling Instructions For appointments, please call [phone]. Encounter Details Date Type Department Care Team (Late st Contact Info) Description 09/19/2019 1:05 PM EST Office Visit [facility] Liver Transplant at [facility] [address] [place] [phone] Jack Ordoñez MD [address] [facility] [place] [address] Liver transplanted ([facility]) (Primary Dx); Immunosuppression ([facility]) Social History Tobacco Use Types Packs/Day Years [...] Sign Reading Time Taken Comments Blood Pressure 174/94 09/19/2019 12:38 PM EST Pulse 92 09/19/2019 12:38 PM EST Temperature 36.7 ??C (98 ??F) 09/19/2019 12: 38 PM EST Respiratory Rate 12 09/19/2019 12:3 8 PM EST Oxygen Saturation 94% 09/19/2019 12: 38 PM EST Inhaled Oxygen Concentration 94% 01/2020 12:38 PM EST Weight 126.5 kg (278 lb 12.8 oz) 2019 12:38 PM EST Height - - Body Mass Index 43.67 07/29/2019 11:26 PM EST documented in this encounter Patient Instructions * Patient Instructions* Jack Shaikh RN - 09/19/2019 1:05 PM EST Plan: 1. Continue cyclosporine 50 mg twice daily. 2. ??Continue Cellcept 250 mg twice daily 3. ??Would check labs every month including: CBC, renal, [...] ratio on annual basis with yourPCP. 8. ??Please discuss with your blood pressure with your PCP . 9. ??Continue Entecavir daily for HBcAb+ liver. Entecavir 0.5 mg weekly. 10. Please re-establish with Dr. Trivedi for consideration of gastric sleeve. Will need repeat EGD before gastric sleeve. 11. Refer to Kidney Transplant 12. Check CMV, 5'NT and HBV DNA today. 13. ??Return in 3 months documented in this encounter Progress Notes * Cayetano Park MA - 09/19/2019 1:05 PM EST Review of Systems All other systems reviewed and are negative. Notified provider of Blood pressure * Jack Ordoñez MD - 09/19/2019 1:05 PM EST Subjective: Aiden Stauffer is a 44 y.o. 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 The patient was last seen in December 2018. He received a [facility] high risk donor, who was HBV ALEXANDRA +, HCV Ab+, ALEXANDRA negative and therefore will be on lifelong entecavir. Post-operative course was complicated by altered mental status and severe tremors thought to be related to tacrolimus toxicity, as well as hypoxia. He received one dose of thymoglobulin . Liver tests are normal on cyclo 50 BID (switched off of several different IS regimens due to patient complaints) and cellcept 250 mg twice daily. His liver tests are normal. Cr 4.4. Co-morbidities include hypertension and DM for which he is on insulin. Still struggling with HTN and T2DM. He presents today for followup. He is concerned about his BP and worsening renal failure. 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 The following portions of the patient's history [...] person, place, and time. He appears well- developed and well-nourished. No distress. HENT: Head: Normocephalic and atraumatic. Right Ear: External ear normal. Mouth/Throat: Oropharynx is clear and moist. No oropharyngeal exudate. Eyes: Pupils are equal, round, and reactive to light. Conjunctivae and EOM are normal. Right eye exhibits no discharge. Left eye exhibits no discharge. No scleral icterus. Neck: Normal range of motion. Neck supple. No JVD present. No tracheal deviation present. No thyromegaly present. Cardiovascular: Normal rate and intact distal pulses. Exam reveals no gallop and no friction rub. No murmur heard. Pulmonary/Chest: Effort normal and breath sounds normal. No respiratory distress. He has no wheezes. He has no rales. He exhibits no tenderness. Abdominal: Soft. Bowel sounds are normal. He exhibits no distension. There is no tenderness. There is no rebound and no guarding. Healed surgical incision Musculoskeletal: Normal range of motion. General: No tenderness, deformity or edema. Lymphadenopathy: He has no cervical adenopathy. Neurological: He is alert and oriented to person, place, and time. No cranial nerve deficit. Coordination normal. Skin: Skin is warm and dry. No rash noted. He is not diaphoretic. No erythema. No pallor. Psychiatric: He has a normal mood and affect. His behavior is normal. Judgment and thought content normal. Labs: The patient's recent laboratory results were reviewed. Assessment & Plan: 44 year old male who is s/p OLT in Sep 2017 for SAL cirrhosis. 1) Status post liver transplant due to SAL in Sep 2017: The patient's post transplant course has been complicated by AMS requiring switch to cyclosporine, CKD with Cr of 4.4, and HTN. Likely needs HD in near future. He received a HBV ALEXANDRA positive and HCV antibody / ALEXANDRA negative organ and remains on Entecavir. Recommend all family members / sexual partners be vaccinated to Hep B. Back on cyclosporine per patient preference (occurred several times). His liver labs are normal. Continue cyclosporine 50 mg twice daily. ??Continue Cellcept 250 mg twice daily??Would check labs every month including: CBC, renal, hepatic profile, and cyclosporine trough.??Would recommend annual visit to Dermatology for skin cancer surveillance.??Please use SPF 30 or higher sunscreen, hat, long- sleeves and sunglasses while in the sun. ??Please continue age appropriate cancer screening including: colonoscopy, prostate exam. ??Will check HgA1C, Vit D, Lipid profile, and urine protein / Cr ratio on annual basis with your PCP. ??Please discuss with your blood pressure with your PCP. ??Continue Entecavir daily for HBcAb+ liver. Entecavir 0.5 mg weekly. Plan: 1. Continue cyclosporine 50 mg twice daily. 2. ??Continue Cellcept 250 mg twice daily 3. ??Would check labs every month including: CBC, renal, [...] ratio on annual basis with yourPCP. 8. ??Please discuss with your blood pressure with your PCP . 9. ??Continue Entecavir daily for HBcAb+ liver. Entecavir 0.5 mg weekly. 10. Please re-establish with Dr. Trivedi for consideration of gastric sleeve. Will need repeat EGD before gastric sleeve. 11. Refer to Kidney Transplant 12. Check CMV, 5'NT and HBV DNA today. 13. ??Return in 3 months * Izabel Cade, PharmD - 09/19/2019 1:05 PM EST Transplant Pharmacist Assessment and Recommendations: Current Outpatient Medications Medication Sig ??? aspirin 81 MG chewable tablet Chew 1 tablet (81 mg total) by mouth daily with breakfast. ??? blood sugar diagnostic Strp Use to test blood sugar up to 4 times a day. Diagnosis for use: E 9.65. For use with One Touch Verio meters. ??? blood-glucose meter (ONEKogeto VERIO SYSTEM) [facility] Use as instructed. ??? carBAMazepine (TEGRETOL) 200 mg tablet Take 200 mg by mouth at bedtime. ??? carvedilol (COREG) 25 MG tablet Take 2 tablets (50 mg total) by mouth 2 times a day with meals. ??? cloNIDine HCl (CATAPRES) 0.1 MG tablet Take 1 tablet (0.1 mg total) by mouth 2 times a day. (Patient taking differently: Take 0.1 mg by mouth 3 times a day. ) ??? cycloSPORINE modified (NEORAL/GENGRAF) 25 MG capsule Take 2 capsules (50 mg total) by mouth 2 times a day. ??? doxazosin (CARDURA) 8 MG tablet 8 mg 2 times a day. ??? entecavir (BARACLUDE) 0.5 MG tablet Take 1 tablet (0.5 mg total) by mouth every 7 days. ??? ergocalciferol (VITAMIN D2) 50,000 unit capsule Take 50,000 Units by mouth once a week. ??? famotidine (PEPCID) 20 MG tablet Take 20 mg by mouth daily. ??? gabapentin (NEURONTIN) 100 MG capsule Take 4 capsules (400 mg total) by mouth daily. ??? hydrALAZINE (APRESOLINE) 50 MG tablet Take 50 mg by mouth 2 times a day. ??? insulin NPH isoph U-100 human (HUMULIN N NPH INSULIN KWIKPEN) 100 unit/mL (3 mL) InPn Inject subcutaneously 20 units in the AM and 8 units in the PM. (Patient taking differently: Inject subcutaneously 48 units in the AM and 24 units in the PM. ) ??? lancets (ONETOUCH DELICA LANCETS) 33 gauge Misc Use 1 strip as directed 4 times daily before meals and at bedtime. ??? liraglutide (VICTOZA 2-GALI) 0.6 mg/0.1 mL (18 mg/3 mL) PnIj Inject 1.8 mg subcutaneously daily. ??? mycophenolate (CELLCEPT) 250 mg capsule [...] to inject insulin 4 times daily. ??? pen needle, diabetic 32 gauge x 5/32 Ndle For use with insulin pen. Use as instructed. ??? polyethylene glycol (MIRALAX) 17 gram packet Take 17 g by mouth 2 times a day as needed. No current facility-administered medications for this visit. Immunosuppression: THYMO BRIDGE Perioperative immunosuppression regimen included: steroid taper, MMF, tacrolimus and Thymoglobulin (175mg x 1 dose on 10/09/17) Currently on cyclosporine 50 mg BID??and mycophenolate 250 mg BID -Previously [...] CsA level is 75-125 mg/dL. Blood pressure: 174/95 mmHg today. Patient stating that his BP has not been well controlled and that it is even higher at dialysis. He is on nifedipine 90 mg BID and clonidine 0.1 mg TID. He was alsostarted on hydralazine 50 mg BID per PCP. Continue to monitor. 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 Adherence: Patient reports missing 0 doses in the past 7 days The following barriers to adherence have been identified: Patient has not followed up with transplant clinic or ID clinic as previously instructed. Reports no missed doses of medications. It is my assessment that the patient demonstrates satisfactory adherence and medication understanding Influenza immunization: Not discussed. Recommendations: 1. Cyclosporine: Follow up on pending level and adjust accordingly * Jack Shaikh RN - 09/19/2019 1:05 PM EST After visit summary including patient instructions reviewed with patient and spouse Medication list reviewed and updated. Checked with patient to see if prescription refills and/or lab orders were needed. Updated preferred pharmacy and preferred lab information in patient demographics. Care coordinated with other team members and other medical providers as needed. Patient presents with the following needs: Message needs to be sent to [employer] program about getting Patient a part of that again. Asked Patient to keep on top of clearing his voicemails so that we could leave him messages. Patient verbalized no other needs. documented in this encounter Plan of Treatment Upcoming Encounters Date Type Department Care Team (Late st Contact Info) Description 07/15/2024 9:00 AM EST Hospital Encounter [facility] Interventional Radiology [address] [place] [phone] Herve Carrillo MD [address] [place] [address] Scheduled Referrals Name Type Priority Associated Diagnoses Orde r Schedule Kidney Transplant Outpatient Referral Routine Liver transplanted ([facility]) Immunosuppression ([facility]) Ordered: 09/19/2019 documented as of this encounter Results * Cytomegalovirus DNA, Quant, RT PCR (09/19/2019 2:18 PM EST) CMV DNA Qnt Not Detected IU/mL 09/20/2019 9:54 AM EST [facility] Comment:Test methodology for CMV quantification is an FDA-approved nucleic acid amplification assay. The Lower Limit of Quantitation (LLOQ) is 137 IU/mL; the linear range is 137- 9,100,000 IU/mL. The limit of Detection is (LoD) is 91 IU/mL. Log10 CMV Qn DNA PI See Note log 10 IU/mL 09/20/2019 9:54 AM EST [facility] Comment:CMV DNA not detected Plasma specimen (specimen) 09/19/2019 2:18 PM EST 09/19/2019 3:12 PM EST us Jack Ordoñez MD LAB BLOOD ORDERABLES Final Re sult [facility] [address] [id number], [facility] * Hepatitis B Virus (HBV), PCR, Quant (09/19/2019 2:18 PM EST) Hep B Viral DNA IU/ML Not Detected IU/mL 09/20/2019 2:52 PM EST [facility] Comment:Test methodology for HBV DNA quantification is an FDA-approved nucleic acid amplification assay. The Lower Limit of Quantitation (LLOQ) is 20 IU/mL. The linear range of the assay is 20- 170,000,000 IU/mL. log 10 HBV as IU/mL See Note log 10 IU/mL 09/20/2019 2:52 PM EST [facility] Comment: Unable to calculate result either because contributing result(s) are outside of reportable range or are not available. HBV DNA not detected. Serum specimen (specimen) 09/19/2019 2:18 PM EST 09/19/2019 3:13 PM EST Jack Ordoñez MD LAB BLOOD ORDERABLES Final Re sult Performing Organization Address City/[facility]/ZIP Co de Phone Number [facility] [address] [facility] * 5' Nucleotidase (09/19/2019 2:18 PM EST) 5-Nucleotidase 3 0 - 10 IU/L 09/23/2019 1:57 PM EST [facility] Serum specimen (specimen) 09/19/2019 2:18 PM EST 09/23/2019 2:07 PM EST Narrative [facility] - 09/23/2019 2:07 PM EST PERFORMED AT: [facility] [id number] [employer] DELIVERY CHECKER: Jeny Pereyra MD ?? PHONE: [phone] Jack Ordoñez MD LAB BLOOD ORDERABLES Final Re sult Performing Organization Address [facility] Co de Phone Number [facility] [address] [facility] documented in this encounter Visit Diagnoses Diagnosis Liver transplanted (CMS-HCC)- Primary Liver replaced by transplant Immunosuppression (CMS-HCC) Liver transplanted (CMS-HCC) Liver replaced by transplant Immunosuppression (CMS-HCC) S/P liver transplant (CMS-HCC) Encounter for therapeutic drug monitoring documented in this encounter Additional Health Concerns Assessment Noted Time PHQ-9 Depression Total Score: 0 12/06/19 18 3:00 PM EDT documented as of this encounter Care Teams Perioperative Assistant Relationship Specialty Start Date End Date Edgar [place] [address] PCP - General 08/18/17 06/23/21 Maile Valles, RN Txp Post Coordinator Transplant Hepatology 11/07/17 Jack Ordoñez MD [address] [place] [address] Consulting Physician Transplant Hepatology 01/05/18 Estephania Sharif, PharmD Pharmacist Pharmacist 11/11/19 documented as of this encounter
--- OUTSIDE RECORDS SUMMARY | 2024-07-12 12:45 | XMS_ITS | Encounter Summary ---
Author Organization [facility] Address [facility] [place] [address] Care Team Providers Care Customer Orders Clerk Name Role Phone Edgar Fournier MD Primary Care Provider [phone] Maile Valles RN Unavailable Unavail able Jack Ordoñez MD Unavailable [phone] Source Comments This information has been [...] release of HIV test results or diagnoses. [id number] Health Encounter Details Date Type Department Care Team (Late st Contact Info) Description 08/19/2019 Orders Only [facility] Interventional Radiology [address] [place] [phone] Sravanthi Barraza CARMEN (acute kidney injury) (CMS-HCC) (Primary Dx); Chronic kidney disease, unspecified CKD stage Social History Tobacco Use Types Packs/Day Years [...] 07/15/2024 9:00 AM EST Hospital Encounter [facility] Interventional Radiology [address] [place] [phone] Herve Carrillo MD [address] [facility] [address] [place] [phone] documented as of this encounter Visit Diagnoses Diagnosis CARMEN (acute kidney injury) (CMS-HCC)- Primary Chronic kidney disease, unspecified CKD stage documented in this encounter Additional Health Concerns Assessment Noted Time PHQ-9 Depression Total Score: 0 12/06/19 18 3:00 PM EDT documented as of this encounter Care Teams Customer Orders Clerk Relationship Specialty Start Date End Date Edgar Fournier MD [address] [place] [address] PCP - General 08/18/17 06/23/21 Maile Valles, RN Txp Post Coordinator Transplant Hepatology 11/07/17 Jack Ordoñez MD [address] [place] [phone] Consulting Physician Transplant Hepatology 01/05/18 documented as of this encounter
--- OUTSIDE RECORDS SUMMARY | 2024-07-12 12:45 | XMS_ITS | Encounter Summary ---
Author Organization [facility] Address [address] [place] [address] Care Team Providers Care Broadcast Producer Name Role Phone Edgar Fournier MD Primary Care Provider [phone] Maile Valles RN Unavailable Unavail able Jack Ordoñez MD Unavailable [phone] Source Comments This information has been [...] release of HIV test results or diagnoses. [id number] Reason for Visit * Reason Comments Appointment Medical Management Encounter Details Date Type Department Care Team (Late st Contact Info) Description 09/03/2019 Telephone [facility] at [facility] [address] [facility] [address] [place] [address] Dav Johnson MD [address] [facility] [address] [place] [address] Appointment; Medical Management Social History Tobacco Use Types [...] encounter Miscellaneous Notes * Telephone Encounter - Jolene Prado RN - 09/05/2019 2:49 PM EST Returned call to Mr Stauffer at [phone]. Rec'd vm that has not been set up. Will call again to attempt to set up an appt with Dr Johnson 09/12 per his approval. * Telephone Encounter - Dav Johnson MD - 09/05/2019 2:44 PM EST Couple of issues. 1. Why did no one acknowledge this note when it was sent >48hrs ago. 2. He does need to see me. Perhaps he could come on 09/12 since he already has an appt with transplant that day. In terms of his weight loss surgery, he'll certainly need a repeat EGD (throat scope) to ensure it's healed up before that could happen. * Telephone Encounter - Suellen Recio - 09/05/2019 12:31 PM EST Pt called to follow up on previous encounter and asked to discuss clearance needed for upcoming procedure * Telephone Encounter - Lilo Quan MA - 09/03/2019 9:14 AM EST Patient is calling to advise that he is needing clearance for his Weight Loss Surgery. States that surgery is not yet scheduled. Advised patient that he had an appointment scheduled for 08/20/2019. In which was no showed. Patient states that he was told to only come see Physician if he was having anyproblems in which he is not. Patient would like a call back to confirm rather or not 08/20/2019 appointment is needed and can be reached at [phone] (home) documented in this encounter Plan of Treatment Upcoming Encounters Date Type Department Care Team (Late st Contact Info) Description 07/15/2024 9:00 AM EST Hospital Encounter [facility] Interventional Radiology [address] [place] [phone] Herve Carrillo MD [address] [facility] [address] [place] [address] documented as of this encounter Visit Diagnoses Not on filedocumented in this encounter Additional Health Concerns Assessment Noted Time PHQ-9 Depression Total Score: 0 12/06/19 18 3:00 PM EDT documented as of this encounter Care Teams Broadcast Producer Relationship Specialty Start Date End Date Edgar Fournier MD [address] [place] [address] [place] [address] PCP - General 08/18/17 06/23/21 Maile Valles, RN Txp Post Coordinator Transplant Hepatology 11/07/17 Jack Ordoñ[place] [address] [place] [phone] Consulting Physician Transplant Hepatology 01/05/18 documented as of this encounter
--- OUTSIDE RECORDS SUMMARY | 2024-07-12 12:45 | XMS_ITS | Encounter Summary ---
Author Organization [facility] Address [facility] [place] [address] Care Team Providers Care Web Site Specialist Name Role Phone Edgar Fournier MD Primary Care Provider [phone] Maile Valles RN Unavailable Unavail able Jack Ordoñez MD Unavailable [phone] Source Comments This information has been [...] release of HIV test results or diagnoses. [id number] Reason for Visit * Reason Comments Clearance cardiac Encounter Details Date Type Department Care Team (Late st Contact Info) Description 09/03/2019 Telephone [facility] Cardiology at [place] [facility] [address] [facility] [address] [place] [address] Marcelino Haynes Jr., MD [address] [facility] [place] [address] Clearance (cardiac ) Social History Tobacco Use Types Packs/Day [...] encounter Miscellaneous Notes * Telephone Encounter - Chris Wright - 09/13/2019 3:48 PM EST Called and spoke with patient and explained to him he would need appointment for cardiac clearance last seen in [address] Haynes who is no longer at [facility] patient stated he wanted to beseen at the [facility]. I called Dr. Wood office to inform about patient needing to come for cardiac clearance appointment, spoke with Nirmala who stated patient is no longer part of their program and all information has been sent to and they will now take his case for having surgery done. * Telephone Encounter - Lyly Lazo RN - 09/12/2019 12:57 PM EST Faxed EGD results to number provided via [employer]. Returned call to office, left message for Kaycee to follow up on requested information and need for cardiac clearance. * Telephone Encounter - Chris Wright - 09/10/2019 4:54 PM EST Attempt to call patient no answer and no voice mail set up for pt could not leave message to call back for appointment will continue to try and reach patient. * Telephone Encounter - Lyly Lazo RN - 09/03/2019 10:16 AM EST Patient last appointment with Cardiology 2017. Patient will need appointment to provide cardiac risk assessment for planned procedure. Message routed to sr. consultant for appointment. * Telephone Encounter - Jane Stone - 09/03/2019 9:45 AM EST Aiden Oviedo Stauffer calling to request cardiac clearance for Gastro sleeve. Please advise. Patient can be reached at [phone]. Results from EGD needed. Date: not scheduled yet Procedure: - Anesthesia: - MD: Dr. Israel oviedo/ [facility] Contact: Attn: Sonja Additional: documented in this encounter Plan of Treatment Upcoming Encounters Date Type Department Care Team (Late st Contact Info) Description 07/15/2024 9:00 AM EST Hospital Encounter [facility] Interventional Radiology [address] [place] [phone] Herve Carrillo MD [address] [facility] [address] [place] [address] documented as of this encounter Visit Diagnoses Not on filedocumented in this encounter Additional Health Concerns Assessment Noted Time PHQ-9 Depression Total Score: 0 12/06/19 18 3:00 PM EDT documented as of this encounter Care Teams Web Site Specialist Relationship Specialty Start Date End Date Edgar Fournier MD [address] [place] [address] [place] [address] PCP - General 08/18/17 06/23/21 Maile Valles, RN Txp Post Coordinator Transplant Hepatology 11/07/17 Jack Ordoñez MD [address] [place] [phone] Consulting Physician Transplant Hepatology 01/05/18 documented as of this encounter
--- OUTSIDE RECORDS SUMMARY | 2024-07-12 12:45 | XMS_ITS | Encounter Summary ---
Author Organization [facility] Address [address] [place] [address] Care Team Providers Care Technical Operations Specialist Name Role Phone Edgar Fournier MD Primary Care Provider [phone] Maile Valles RN Unavailable Unavail able Jack Ordoñez MD Unavailable [phone] Estephania Sharif PharmD Unavailable Christine vailable System, Provider Not In Primary Care Provider Un available Edgar Fournier MD Primary Care Provider [phone] Source Comments This information has been disclosed [...] release of HIV test results or diagnoses. [id number] Health Reason for Visit * Reason Comments After Hours Call Encounter Details Date Type Department Care Team (Late st Contact Info) Description 07/29/2019 Telephone [facility] PATIENT SERVICES [address] [place] [address] Unknown, Attending Provider After Hours [...] * Telephone Encounter - Cate Tellez - 07/29/2019 7:58 PM EST Patient Name Aiden Stauffer Patient Date of 73 Relationship of Caller to Patient: Self Patient of Kidney Transplant Nature of Call: Something was found on atient's labs/ patient need to be admitted to the hospital. Escrow Agent Provider Contacted: Carey Worthington Provider contacted via pager or cell (how contacted) Time and Method: (Time and How -Direct Connect, VM or Paged) Caller advised to call back in 30 minutes, if they do not hear from the provider on-call. Note was routed to the receiving on-call provider/pool. documented in this encounter Plan of Treatment Upcoming Encounters Date Type Department Care Team (Late st Contact Info) Description 07/15/2024 9:00 AM EST Hospital Encounter [facility] Interventional Radiology [address] [place] [phone] Herve Carrillo MD 0004 [facility] [address] [place] [address] [...] documented as of this encounter Care Teams Technical Operations Specialist Relationship Specialty Start Date End Date Edgar Fournier MD [address] [place] [address] [place] [address] PCP - General 08/18/17 06/23/21 System, Provider Not In PCP - General 06/24/21 12/21/21 Edgar Fournier MD [address] [place] [address] [place] [address] PCP - General 12/22/21 Maile Valles, RN Txp Post Coordinator Transplant Hepatology 11/07/17 Jack Ordoñez MD [address] [place] [phone] Consulting Physician Transplant Hepatology 01/05/18 Estephania Sharif, DarrianD Pharmacist Pharmacist 11/11/19 documented as of this encounter
--- OUTSIDE RECORDS SUMMARY | 2024-07-12 12:45 | XMS_ITS | Encounter Summary ---
Author Organization [facility] Address [facility] [place] [address] Care Team Providers Care Field Handyman Name Role Phone Edgar Fournier MD Primary Care Provider [phone] Maile Valles RN Unavailable Unavail able Jack Ordoñez MD Unavailable [phone] Source Comments This information has been [...] release of HIV test results or diagnoses. [id number] Reason for Visit * Reason Comments Direct Admission Encounter Details Date Type Department Care Team (Late st Contact Info) Description 07/29/2019 Telephone [facility] Liver Transplant at Outpatient [address] [phone] Maile Valles, RN Direct Admission Social History Tobacco Use Types Packs/Day Years [...] Telephone Encounter - Maile Valles RN - 07/29/2019 4:48 PM EST Received call from Dr. Pineda regarding patient. Patient had a recent EGD during recent hospital admission for odynophagia and oropharyngeal ulcers. 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 Will need to directly admit patient to GI daniel service. Attempted to contact patient multiple times at numbers listed in chart - unable to reach patient or[employer] message. Attempted to send email to patient at address listed in chart, however email was returned as no user at domain. Spoke with Landen in Capacity Management. Bed assignment pending. On-call coordinator will be contacted when bed is available. Updated on-call coordinator, Aleta Worthington RN, on situation. documented in this encounter Plan of Treatment Upcoming Encounters Date Type Department Care Team (Late st Contact Info) Description 07/15/2024 9:00 AM EST Hospital Encounter [facility] Interventional Radiology [address] [place] [phone] Herve Carrillo MD [address] [facility] [address] [place] [address] documented as of this encounter Visit Diagnoses Not on filedocumented in this encounter Additional Health Concerns Assessment Noted Time PHQ-9 Depression Total Score: 0 12/06/19 18 3:00 PM EDT documented as of this encounter Care Teams Field Handyman Relationship Specialty Start Date End Date Edgar Fournier MD [address] [place] [address] J[place]ON Downs [address] PCP - General 08/18/17 06/23/21 Maile Valles RN Txp Post Coordinator Transplant Hepatology 11/07/17 Jack Ordoñez MD [address] [place] [phone] Consulting Physician Transplant Hepatology 01/05/18 documented as of this encounter
--- OUTSIDE RECORDS SUMMARY | 2024-07-12 12:45 | XMS_ITS | Encounter Summary ---
Author Organization [facility] Address [facility] [place] [address] Care Team Providers Care Entomology Professor Name Role Phone Edgar Fournier MD Primary Care Provider [phone] Maile Valles RN Unavailable Unavail able Jack Ordoñez MD Unavailable [phone] Source Comments This information has been [...] release of HIV test results or diagnoses. [id number] Health Encounter Details Date Type Department Care Team (Late st Contact Info) Description 07/25/2019 Orders Only [facility] Liver Transplant at Outpatient [address] [phone] Anne Whitt MA Liver replaced by transplant ([facility]) (Primary Dx); Pharmacologic therapy; Encounter for therapeutic drug monitoring [...] [facility] Interventional Radiology [address] [place] [phone] Herve Carrillo MD [address] [facility] [address] [place] [phone] documented as of this encounter Visit Diagnoses Diagnosis Liver replaced by transplant (CMS-HCC)- Primary Liver replaced by transplant Pharmacologic therapy Encounter for other specified aftercare Encounter for therapeutic drug monitoring documented in this encounter Additional Health Concerns Assessment Noted Time PHQ-9 Depression Total Score: 0 12/06/19 18 3:00 PM EDT documented as of this encounter Care Teams Entomology Professor Relationship Specialty Start Date End Date Edgar Fournier MD [address] [place] [address] [place] [address] PCP - General 08/18/17 06/23/21 Maile Valles, RN Txp Post Coordinator Transplant Hepatology 11/07/17 Jack Ordoñez MD [address] [place] [phone] Consulting Physician Transplant Hepatology 01/05/18 documented as of this encounter
--- OUTSIDE RECORDS SUMMARY | 2024-07-12 12:45 | XMS_ITS | Encounter Summary ---
Author Organization [facility] Address [address] [place] [address] Care Team Providers Care Director Industrial Name Role Phone Edgar Fournier MD Primary Care Provider [phone] Maile Valles RN Unavailable Unavail able Jack Ordoñez MD Unavailable [phone] Source Comments This information has been [...] release of HIV test results or diagnoses. [id number] Reason for Visit * Auth/Cert Specialty Diagnoses / Procedures Referred By Declan t Referred To Contact Transplant Diagnoses CMV ESOPHAGITIS [address] [place] [address] Phone: tel: Referral ID Status Reason Start Date Expiration Date Visits Re quested Visits Authorized [id number] 1 1 Encounter Details Date Type Department Care Team (Latest Contact Info) Description 07/29/2019 11:07 PM EST - 07/31/2019 2:13 PM EST Hospital Encounter [address] [place] [id number] Loida Alcantar MD [address] [place] [address] Esophagitis, CMV ([facility]); Liver transplant recipient ([facility]); Immunosuppression ([facility]); ESRD (end stage renal disease) on dialysis ([facility]) Discharge Disposition: Home or Self Care WITHOUT [...] Sign Reading Time Taken Comments Blood Pressure 182/92 07/31/2019 12:15 PM EST Pulse 79 07/31/2019 12:15 PM EST Temperature 37.1 ??C (98.8 ??F) 07/31/2019 12:[address] Respiratory Rate 16 07/31/2019 5:23 AM EST Oxygen Saturation 96% 07/31/2019 5:23 AM EST Inhaled Oxygen Concentration 96% 07/31/2019 5 :23 AM EST Weight 129 kg (284 lb 8 oz) 07/30/2019 6:[address] Height 170.2 cm (5' 7 ) 07/29/2019 11:26 PM EST Body Mass Index 44.56 07/29/2019 11:26 PM EST documented in this encounter Discharge Summaries * Goyo Ladd MD - 07/30/2019 2:38 PM EST Images from the original note were not included. [facility] Inpatient Discharge Summary Patient: Aiden Stauffer Age: 44 y.o. CSN: [id number] Date of Admission: 07/29/2019 Date of Discharge: 07/31/2019 Attending Physician: Loida Alcantar MD Primary Care Physician: Edgar Fournier MD Diagnoses Present on Admission Past Medical History: Diagnosis Date ??? Acute pancreatitis ??? Ascites ??? Diabetes mellitus (CMS Dx) ??? Esophageal varices with bleeding (CMS Dx) ??? GERD (gastroesophageal reflux disease) ??? Hepatic encephalopathy (CMS Dx) ??? Hypertension ??? 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 Vitamin D deficiency Discharge Diagnoses Active Hospital Problems Diagnosis Date Noted ??? Esophagitis, CMV (CMS Dx) [K20.8, B25.8] 07/29/2019 Resolved Hospital Problems No resolved problems to display. Operations/Procedures Performed (include dates) Surgeries: None Lines and tubes: Patient Lines/Drains/Airways Status Active Line / PIV Line Name: Placement date: Placement time: Site: Days: HD Catheter Dual Lumen (Vas Cath) Tunneled Right Internal Jugular 07/23/19 1018 Internal Jugular 8 Peripheral IV 07/29/19 Right Forearm 07/29/19 -- [facility] (07/01/2019 to 07/30/2019) Central line: 4 Urinary catheter: 0 Other Procedures / Pertinent Imaging: None Consulting Services (include reason) 1. Transplant ID: CMV esophagitis 2. Hepatology: Immunosuppression in setting of CMV esophagitis Allergies Allergies Allergen Reactions ??? Codeine Sulfate Hyper ??? Codeine Other (See Comments) Becomes hyper Discharge Medications Medication List TAKE these medications, which are NEW Quantity/Refills valGANciclovir 450 mg tablet Commonly known as: VALCYTE Take 1 tablet (450 mg total) by mouth every Monday, Monday, and Monday. Take 1 tablet (450mg total) by mouth every Monday, Monday, and Monday after dialysis Quantity: 11 tablet Refills: 0 TAKE these medication, which have CHANGED Quantity/Refills cefazolin IVPB (Outpatient / Ambulatory) Commonly known as: ANCEF Intravenous 3 g once for 1 dose. Give as IV piggyback in appropriate diluent and volume as specified by receiving facility. Start taking on: August 02, 2019 What changed: ?? how much to take ?? how to take this ?? when to take this ?? additional instructions ?? These instructions start on August 02, 2019. If you are unsure what to do until then, ask yourdoctor or other care provider. Refills: 0 mycophenolate 250 mg capsule Commonly known as: CELLCEPT Take 1 capsule (250 mg total) by mouth 2 times a day. What changed: how much to take Quantity: 60 capsule Refills: 0 TAKE these medications, which you [...] Quantity: 150 strip Refills: 5 blood-glucose meter [facility] Commonly known as: ONETOUCH VERIO SYSTEM Use as instructed. Quantity: 1 each Refills: 0 carBAMazepine 200 mg tablet Commonly known as: TEGRETOL Take 200 mg by mouth at bedtime. Refills: 0 carvedilol 25 MG tablet Commonly known as: COREG Take 2 tablets (50 mg total) by mouth 2 times a day with meals. Quantity: 120 tablet Refills: 5 cloNIDine HCl 0.1 MG tablet Commonly known as: CATAPRES Take 1 tablet (0.1 mg total) by mouth 2 times a day. Refills: 0 cycloSPORINE modified 25 MG capsule Generic drug: cycloSPORINE modified Take 2 capsules (50 mg total) by mouth 2 times a day. Quantity: 120 capsule Refills: 1 doxazosin 8 MG tablet Commonly known as: CARDURA 8 mg 2 times a day. Refills: 0 entecavir 0.5 MG tablet Commonly known as: BARACLUDE Take 1 tablet (0.5 mg total) by mouth every 7 days. Quantity: 30 tablet Refills: 0 famotidine 20 MG tablet Commonly known as: PEPCID Take 20 mg by mouth daily. Refills: 0 fluticasone propionate 50 mcg/actuation nasal spray Commonly known as: FLONASE use 2 spray(s) in each nostril daily Refills: 11 gabapentin 100 MG capsule Commonly known as: NEURONTIN Take 4 capsules (400 mg total) by mouth daily. Quantity: 180 capsule Refills: 0 insulin glulisine U-100 100 unit/mL injection Commonly known as: APIDRA U-100 INSULIN Inject 5 Units subcutaneously 3 times a day with meals. Quantity: 10 mL Refills: 0 insulin NPH isoph U-100 human 100 unit/mL (3 mL) Inpn Commonly known as: HumuLIN N NPH Insulin KwikPen Inject subcutaneously 20 units in the AM and 8 units in the PM. Quantity: 15 mL Refills: 5 lancets 33 gauge Misc Commonly known as: ONETOUCH DELICA LANCETS Use 1 strip as directed 4 times daily before meals and at bedtime. Quantity: 150 each Refills: 5 NIFEdipine 90 MG (OSM) 24 hr tablet Commonly known as: PROCARDIA-XL Take 90 mg by mouth 2 times a day. Refills: 0 ondansetron 4 MG disintegrating tablet Commonly known as: ZOFRAN-ODT every 8 hours as needed. Refills: 0 * pen needle, diabetic 32 gauge x 5/32 Ndle Use as directed to inject insulin 4 times daily. Quantity: 150 each Refills: 5 * pen needle, diabetic 32 gauge x 5/32 Ndle For use with insulin pen. Use as instructed. Quantity: 150 each Refills: 5 polyethylene glycol 17 gram packet Commonly known as: MIRALAX Take 17 g by mouth 2 times a day as needed. Quantity: 100 packet Refills: 0 VITAMIN D2 1,250 mcg (50,000 unit) capsule Generic drug: ergocalciferol Take 50,000 Units by mouth once a week. Refills: 0 * This list has 2 medication(s) that are the same as other medications prescribed for you. Read thedirections carefully, and ask your doctor or other care provider to review them with you. STOP taking these medications valACYclovir 500 MG tablet Commonly known as: VALTREX Where to Get Your Medications These medications were sent to [facility] [address] [address] Hours: Monday - Monday: 8:45AM - 5:00PM ?? mycophenolate 250 mg capsule ?? valGANciclovir 450 mg tablet Information about where to get these medications is not yet available Ask your nurse or doctor about these medications ?? cefazolin IVPB (Outpatient / Ambulatory) Discharge Exam Physical Exam Constitutional: General: He is [...] Abdomen is soft. Tenderness: There is no tenderness. Musculoskeletal: Normal range of motion. Skin: General: Skin is warm and dry. Neurological: General: No focal deficit present. Mental Status: He is alert and oriented to person, place, and time. Psychiatric: Mood and Affect: Mood normal. Behavior: Behavior normal. Reason for Admission Aiden Stauffer is a 44 y.o. male with PMH of KIM cirrhosis s/p OLT who presented with CMV esophagitis. Hospital Course Active Hospital Problems Diagnosis Date Noted ??? Esophagitis, CMV ([facility] Dx) [K20.8, B25.8] 07/29/2019 Resolved Hospital Problems No resolved problems to display. CMV Esophagitis Patient s/p liver transplant (09/2017) on chronic immunosuppression. Recent hospitalization patient was noted to have oral ulcers and CMV viremia. Biopsy was taken from ulcer which was positive for CMV. Transplant ID were consulted and recommended 4 weeks total of valgancyclovir PO 450mg given MWF after HD (EoT 08/26/19). Patient set up with ID follow-up with Dr. Johnson on 08/20/19. ?? Liver transplant (09/2017) Home immunosuppression: cyclosporine 50mg BID, entecavir 0.5mg weekly/Sat, mycophenolate 750mg BID.Hepatology was consulted and recommended decreasing cellcept to 250mg BID and continuing cyclosporine 50mg BID. Will need liver follow-up in 2-3 weeks. ?? Bacteremia Recent admission for type C strep bacteremia. Continued home Ancef MWF 2/2/3g with HD (EoT 08/02). ?? ESRD HD MWF. Renal consulted for HD while inpatient. Received HD on 07/31 while inpatient. ?? Diabetes mellitus type 2 Home regimen: NPH 20u AM/ 8u PM; glulisine 5mg TID. Will restart home regimen on discharge ?? Chronic anemia Hgb baseline 8-9; required 2 units during prior admission. CBC remained stable during admission. ?? HTN Home carvedilol, clonidine, nifedipine, and doxazosin were continued. ?? GERD Continued home pepcid ?? VitD deficiency Continued weekly ergocalciferol (Monday) ?? Neuropathic pain Continued home gabapentin ?? Restless leg syndrome Continued home carbamazepine Condition on Discharge 1. Functional Status: mildly impaired Describe limitations, if any: none 2. Mental Status: Alert/Oriented Describe limitations, if any: none 3. Dietary Restrictions / Tube Feeding / TPN Diet Orders Diet regular starting at 07/31 1152 As listed above 4. Discharge specific orders: None required 5. Core measures followed: (if this is a core measure patient) Discharge Weight: (!) 284 lb 8 oz (129 kg) Disposition Home independent Follow-Up Appointments No future appointments. No follow-up provider specified. Signed: GOYO LADD MD 07/31/2019, 12:41 PM Cosigned by Loida Alcantar MD at 07/31/2019 12:45 PM EST Associated attestation - Loida Alcantar MD - 07/31/2019 12:45 PM EST I saw and examined the patient. I discussed with the resident or fellow and agree with Dr. Ladd'findings and plan as documented in the note. Loida Alcantar MD, MS Artificial Intelligence Specialist Division of Digestive Diseases Pager: [phone] * Dav Johnson MD - 07/30/2019 11:30 AM EST Subspecialty Follow-up Appointment Chart Note Service: Infectious Diseases Subspecialty Follow-up Disposition: The patient requires subspecialty follow-up as noted below: Note: This information is for [facility] Scheduling use only. It is not the responsibility of the primaryinpatient service to schedule this appointment. 1. Visit type:[facility] 2. Name of provider to schedule with: Elizabeth 3. Timing: The appointment should be scheduled on August 20 at 11am 4. Location: [place] 5. Ok to overbook if there are no open appointment slots?: No but ok to use urgent slot 44 y.o. M s/p OLT 2018 recently admitted for Group C strep bacteremia, readmitted for CMV esophagitis. Plan for 2 weeks IV GCV with HD followed by 2 weeks PO Valcyte. Antibiotics at discharge: Cefazolin 2g/2g/3g IV with HD, last dose 08/02/19 AND Valcyte 450mg PO qMWF after HD, end date 08/26/19 Weekly monitoring labs to be drawn on Mondays and faxed to [facility] attn Dr Johnson [phone] CBC ID f/u to be arranged with Dr Johnson as above ID will sign off, call with questions, [phone] Dav Johnson MD 07/30/2019 11:26 AM documented in this encounter Discharge Instructions * Discharge Instructions* Ijeoma Brooke MD - 07/31/2019 8:22 AM EST We are starting you on a new medication for a viral infection of your esophagus. You will need to take 450mg of Valcyte AFTER dialysis on Monday, Monday, and Monday. We have also decreased your cellcept 250mg twice daily. Please follow up with your transplant doctor and the transplant ID doctor. documented in this encounter Medications at Time [...] mg total) by mouth if needed. 8 cefazolin (ANCEF) IVPB Intravenous 3 g once for 1 dose. Give as IV piggyback in appropriate diluent and volume as specified by receiving facility. 9 08/02/20 19 blood sugar diagnostic Strp Use to test blood sugar up to 4 times a day. Diagnosis for use: E 9.65. For use with One Touch Verio meters. 150 strip 5 8 03/18/20 22 blood-glucose meter (ONETOUCH VERIO SYSTEM) [facility] Use as instructed. 1 each 8 03/18/20 22 carvedilol (COREG) 25 MG tablet Take 2 tablets (50 mg total) by mouth 2 times a day with meals. 120 tablet 5 8 03/12/20 20 cloNIDine HCl (CATAPRES) 0.1 MG tablet Take 1 tablet (0.1 mg total) by mouth 2 times a day. 9 05/28/20 20 cycloSPORINE modified (NEORAL/GENGRAF) 25 MG capsule Take 2 capsules (50 mg total) by mouth 2 times a day. 120 capsule 1 07/25/2019 2:13 PM EST 9 09/17/19 20 entecavir (BARACLUDE) 0.5 MG tablet Take 1 tablet (0.5 mg total) by mouth every 7 days. 30 tablet 07/25/2019 2:13 PM EST 9 01/24/20 20 ergocalciferol (ERGOCALCIFEROL) 1,250 mcg (50,000 unit) capsule Take 50,000 Units by mouth every Monday, , and Monday. 03/18/20 22 famotidine (PEPCID) 20 MG tablet Take 20 mg by mouth daily. 07/20/20 20 fluticasone propionate (FLONASE) 50 mcg/actuation nasal spray use 2 spray(s) in each nostril daily 11 9 09/19/19 20 gabapentin (NEURONTIN) 100 MG capsuleIndications: Neuropathy Take 4 capsules (400 mg total) by mouth daily. 180 capsule 9 06/25/20 20 insulin glulisine U-100 (APIDRA U-100 INSULIN) 100 unit/mL injection Inject 5 Units subcutaneously 3 times a day with meals. 10 mL 9 09/19/19 20 insulin NPH isoph U-100 human (HUMULIN N NPH INSULIN KWIKPEN) 100 unit/mL (3 mL) InPnIndications:S/P liver transplant (CMS-HCC),Hyperglyc emia Inject subcutaneously 20 units in the AM and 8 units in the PM. 15 mL 5 9 06/25/20 20 lancets (ONETOUCH DELICA LANCETS) 33 gauge Misc Use 1 strip as directed 4 times daily before meals and at bedtime. 150 each 5 8 03/18/20 22 mycophenolate (CELLCEPT) 250 mg capsule Take 1 capsule (250 mg total) by mouth 2 times a day. 60 capsule 07/31/2019 11:12 AM EST 9 11/11/19 20 ondansetron (ZOFRAN-ODT) 4 MG disintegrating tablet Take 1 tablet (4 mg total) by mouth every 8 hours as needed. 8 04/28/20 24 pen needle, diabetic 32 gauge x 5/32 Ndle Use as directed to inject insulin 4 times daily. 150 each 5 8 03/18/20 22 pen needle, diabetic 32 gauge x 5/32 Ndle For use with insulin pen. Use as instructed. 150 each 5 8 11/11/19 20 polyethylene glycol (MIRALAX) 17 gram packet Take 17 g by mouth 2 times a day as needed. 100 packet 9 06/25/20 20 valGANciclovir (VALCYTE) 450 mg tablet Take 1 tablet (450 mg total) by mouth every Monday, Monday, and Monday. Take 1 tablet (450mg total) by mouth every Monday, Monday, and Monday after dialysis 11 tablet 9 09/19/19 20 documented as of this encounter Progress Notes * Erika Pitts RN - 07/31/2019 1:52 PM EST RN reviewed AVS with the pt including follow-up appointments, medication changes, and general discharge care instructions. PIV removed and pt tolerated well. Pt has no further needs at this time and [facility] * Merle Holt CNP - 07/31/2019 11:46 AM EST [facility] Nephrology Consults Progress Note Nephrology Consult Physician: Dr. Cruz Primary Team Physician: Loida Alcantar MD Primary Retail Agent: [facility] Hospital Days: 2 Subjective: Chief Complaint on Adm: Group C strep bacteremia; CMV esophagitis Reason for follow up: CARMEN/CKD now requiring SALES RECEPTIONIST Presenting assessment: Aiden Stauffer is a 44 y.o. male with past medical history of KIM cirrhosis s/p OLT in 2018; CK 80, CKD (noted proteinuria of 13 gm in January 2019); HTN, DM2 who presented to hospital with CMV esophagitis. Patient had recent admission on 07/19/19 for bacteremia and acute on chronic kidney injury. Patient was initiated on dialysis during this admission with sr creat peak at 7.7 on admission. Had 3 dialysis treatments while at [facility] was then discharged home on 07/25/2019. Patient with past medical history of CKD and was admitted in June 2019 with CARMEN with a sr creatof 4.8 and was transferred to . Nephrology consulted for continued dialysis management Contrast Exposure: CT neck 07/22 Nephrotoxic Agents: cefazolin, Hypotensive episodes: no Interval History: Seen on HD No complaints on HD No SOB No cramping at present BP stable on HD sl elevated Past History: Medical, Surgical, Family and Social history unchanged since documented in consult note on 07/30/2019 unless specified in this note. Review of Systems Constitutional: Negative for chills, fever and malaise/fatigue. HENT: Negative. Eyes: Negative. Respiratory: Negative for shortness of breath and wheezing. Cardiovascular: Negative. Gastrointestinal: Negative for nausea and vomiting. Genitourinary: CARMEN/CKD requiring HD Musculoskeletal: Negative. Neurological: Negative. Endo/Heme/Allergies: Bruises/bleeds easily. Psychiatric/Behavioral: Negative. All other systems reviewed and are negative. ROS updated today 07/31/2019. Inpatient Meds: Scheduled: ??? aspirin 81 mg Oral Daily with breakfast ??? carBAMazepine 200 mg Oral Nightly (2099) ??? carvedilol 50 mg Oral BID WC ??? ceFAZolin (ANCEF) IVPB 2 g Intravenous Once per day on Mon ??? [START ON 08/02/2019] ceFAZolin (ANCEF) 3g in sodium chloride 0.9% 100 mL IVPB 3 g Intravenous Once per day on Mon ??? cloNIDine HCl 0.1 mg Oral BID ??? cycloSPORINE modified 50 mg Oral BID ??? entecavir 0.5 mg Oral Q7 Days ??? ergocalciferol 50,000 Units Oral Weekly ??? famotidine 20 mg Oral Daily 09 ??? gabapentin 400 mg Oral Daily 0900 ??? insulin lispro 0-5 Units Subcutaneous TID AC ??? insulin lispro 5 Units Subcutaneous TID AC ??? insulin NPH 10 Units Subcutaneous Daily 0900 ??? insulin NPH 5 Units Subcutaneous Nightly (2099) ??? mycophenolate 250 mg Oral BID ??? NIFEdipine 90 mg Oral BID ??? sodium chloride 10 mL Intravenous QS ??? terazosin 10 mg Oral Nightly (2099) ??? valGANciclovir 450 mg Oral Once per day on Mon Continuous: PRN:dextrose 10% in water OR dextrose 10% in water, For Catheter Lock: gentamicin 0.32 mg/mL and citrate 4% antibiotic IV lock, glucose, polyethylene glycol Allergies Allergen Reactions ??? Codeine Sulfate Hyper ??? Codeine Other (See Comments) Becomes hyper Objective: Temp: [98.1 ??F (36.7 ??C)-98.9 ??F (37.2 ??C)] 98.8 ??F (37.1 ??C) Heart Rate: [72-86] 80 Resp: [16] 16 BP: (146-194)/(69-105) 188/98 I/O last 3 completed shifts: In: 0 Out: 151 [Urine:150; Stool:1] Wt Readings from Last 3 Encounters: 07/30/19 (!) 284 lb 8 oz (129 kg) 07/24/19 (!) 290 lb (131.5 kg) 07/01/19 (!) 292 lb 14.4 oz (132.9 kg) Date 07/30/19699 - 07/31/1965807/31/19699 - 08/01/19 06 Shift [id number] 6631-0930 3405-5538 24 Hour Total 1810-7078 5013-5838 9465-4036 24 Hour Total INTAKE P.O. 0 0 P.O. 0 0 Shift Total(mL/kg) 0(0) 0(0) OUTPUT Urine(mL/kg/hr) 150(0.1) 0(0) 150(0) 125 125 Urine 150 0 150 125 125 Urine Occurrence 1 x 1 x Emesis/NG output 0 0 0 Emesis 0 0 0 Stool 1 0 1 Stool 1 0 1 Shift Total(mL/kg) 151(1.2) 0(0) 151(1.2) 125(1) 125(1) Weight (kg) 129 129 129 129 129 129 129 129 Physical Exam Vitals signs and nursing note reviewed. Constitutional: Appearance: He is obese. HENT: Head: Normocephalic and atraumatic. Mouth/Throat: Mouth: Mucous membranes are moist. Eyes: Conjunctiva/sclera: Conjunctivae normal. Neck: Musculoskeletal: Normal range of motion and neck supple. Cardiovascular: Rate and Rhythm: Normal rate and regular rhythm. Pulmonary: Effort: Pulmonary effort is normal. No respiratory distress. Breath sounds: Normal breath sounds. Abdominal: General: Bowel sounds are normal. There is no distension. Palpations: Abdomen is soft. Tenderness: There is no tenderness. Musculoskeletal: Normal range of motion. Right lower leg: No edema. Left lower leg: No edema. Skin: General: Skin is warm and dry. Neurological: Mental Status: He is oriented to person, place, and time. Psychiatric: Mood and Affect: Mood normal. Behavior: Behavior normal. Thought Content: Thought content normal. Judgement: Judgment normal. Physical exam updated today 07/31/2019. Labs: Lab 07/31/19 0816 07/30/19 0418 07/30/19 0029 07/25/19 0640 WBC 3.1* 3.7* 4.3 4.2 HEMOGLOBIN 7.9* 8.2* 9.3* 8.9* HEMATOCRIT 24.1* 24.8* 27.5* 27.3* MEAN CORPUSCULAR VOLUME 85.4 84.6 84.6 82.6 PLATELETS 238 271 240 239 Lab 07/31/19 0415 07/30/19 0418 07/30/19 0029 07/25/19 0640 SODIUM 144 -- 142 141 POTASSIUM 4.0 -- 4.1 4.5 CHLORIDE 104 -- 102 103 CO2 30 -- 26 26 BUN 25 -- 17 27* CREATININE 4.31* -- 3.52* 4.93* GLUCOSE 111* -- 204* 128* CALCIUM 7.3* -- 7.3* 7.6* MAGNESIUM -- 1.8 -- 2.0 PHOSPHORUS 4.3 -- 3.4 3.7 Lab 07/31/19 0415 07/30/19 0029 07/25/19 0640 ALT -- 4* -- AST -- 14 -- ALK PHOS -- 93 -- BILIRUBIN TOTAL -- 0.2 -- BILIRUBIN DIRECT -- 0.11 -- ALBUMIN 2.9* 3.2* 3.2* 3.0* Invalid input(s): BEV Lab 07/31/19 0929 07/31/19 0156 07/30/19 2252 07/30/19 1922 POC GLU MONITORING DEVICE 135* 114* 161* 153* Microbiology Data: Lab Results Component Value Date LABGRAM 10/25/2017 Minimal Oral Contamination <25 Polymorphonuclear Leukocytes; <10 Squamous Epithelial Cells Per Low Power Field LABGRAM Moderate Gram Positive Cocci in Chains and Pairs; 10/25/2017 ISO2 Scant Growth (A) 10/25/2017 ISO2 Pseudomonas fluorescens (A) 10/25/2017 ISO2 Identified by MALDI-TOF MS (A) 10/25/2017 ISO2 Testing Performed at Laboratory (A) 10/25/2017 Lab Results Component Value Date ISO1 <1,000 cfu/mL 07/20/2019 ISO1 Mixed Skin/Urogenital Brionna. No Further Workup. 07/20/2019 ISO2 Scant Growth (A) 10/25/2017 ISO2 Pseudomonas fluorescens (A) 10/25/2017 ISO2 Identified by MALDI-TOF MS (A) 10/25/2017 ISO2 Testing Performed at Laboratory (A) 10/25/2017 LABGRAM 10/25/2017 Minimal Oral Contamination <25 Polymorphonuclear Leukocytes; <10 Squamous Epithelial Cells Per Low Power Field LABGRAM Moderate Gram Positive Cocci in Chains and Pairs; 10/25/2017 Radiology/ Function Tests: No orders to display Assessment & Plan: Aiden Stauffer is a 44 y.o. male with past medical history of KIM cirrhosis s/p OLT in 2018; CK 80, CKD (noted proteinuria of 13 gm in January 2019); HTN, DM2 who presented to hospital with CMV esophagitis. Patient had recent admission on 07/19/19 for bacteremia and acute on chronic kidney injury. Patient was initiated on dialysis during that admission with sr creat peak at 7.7 on admission. Had 3 dialysis treatments while at [facility] was then discharged home on 07/25/2019. 1. CARMEN on CKD now on HD CKD likely diabetic nephropathy Baseline sr creat @ 4.0 Noted Proteinuria in January 2019 of 13.gms Peak sr creat 7.7 on 07/19/19 and initiated on HD Primary Retail Agent and Unit in [facility] Seen on IHD Qb : 350 QD : 700 Duration : 4 hours UF : 2.2L UF Pre weight: 130.4 kg EDWT: 128 kg per outpt records Bath : K+ 3 Bicarb: 32 Ca : 2.5 Access : right IJ TDC Monitor I/O and wts Dose meds to creat clearance; avoid nephrotoxic agents 2. Anemia of chronic dx H/H 7.9/24.1 Transfuse as indicated 3. Renal osteodystrophy Phos 4.3 no binders at present Corrected Calcium 8.2; Calcium 7.3; albumin 2.9 Vit D deficiency; on ergocalciferol will check PTH and Vit D next labs; 4. HTN Stable at present On clonidine 0.1 mg two times daily; carvedilol 50 mg BID; Nifedipine 90 mg BID; Avoid hypotension 5. S/p OLT 2018 On cellcept 250 mg BID entecavir 0.5 mg every 7 days Cyclosporine 50 mg BID 6. CMV esophagitis ID following Planning: Cefazolin 2g/2/g/3g IV MWF with HD last dose on 08/02/19 AND Ganciclovir 160 mg IV MWF with HD last dose on 08/12/19 followed by Valcyte 450 mg oral every MWF after HD end date 08/26/19 Nutrition: Diet Orders Diet NPO past midnight starting at 07/30 5696 Disposition: per primary team [facility] Morbidity/Complication Risk felt to be: moderate/high The above findings and plan were discussed with the primary community health education coordinator Dr. Cruz Thank you for involving Nephrology in the care of Aiden Stauffer. If you have any questions or concerns please feel free to contact us. Merle CRAVEN, CCRN Pager: [phone] 11:47 AM 07/31/2019 Cosigned by Lionel Cruz MD at 07/31/2019 1:09 PM EST Associated attestation - Lionel Cruz MD - 07/31/2019 1:09 PM EST I saw and examined the patient. I discussed with the LAB ANIMAL TECHNICIAN Lucho and agree with her findings and plan as documented in the note. Seen on Hd. Will dialyze to target weight Patient tolerating procedure well today. Awaiting Central iv insertion pending for iv ganciclovir. Lionel Cruz MD * Izabel Cade PharmD - 07/31/2019 11:24 AM EST Transplant Pharmacy Note Transplant pharmacy is following Aiden Stauffer during hospital admission and will perform the following activities related to transplant pharmacotherapy: 1. Ensure appropriate management and titration of immunosuppressive, prophylactic, and other supportive care medications; 2. Monitor for any adverse drug effects; 3. Review the patient's medication profile for any potential drug interaction. For issues not related to transplantation, please contact the clinical pharmacist assigned to the primary service. Izabel Cade PharmD Transplant Cat Breeder Work: Pager: Cosigned by Blake Dang PharmD at 10/13/2019 3:52 PM EST Associated Blake Cali PharmD - 10/13/2019 3:52 PM EST I agree with the plan of care as outlined below by the resident/fellow, and will oversee and assistin the transplant-related pharmaceutical care of the patient as needed. Christiano Dang, Pharm.D. Clinical Production Line Manager, Solid Organ Transplant Office [phone] Pager #[phone] (Clinical Pharmacist sales operations lead pager [phone]) * Osiel Kate PharmD - 07/31/2019 11:13 AM EST Discharge medications delivered * Maru Carlson - 07/31/2019 7:48 AM EST Gastroenterology Inpatient Progress Note Mr. San is a 44 year old male with a history of KIM cirrhosis s/p orthotopic liver transplant, HTN, DM, recently admitted for bacteremia and CARMEN who presents for treatment of biopsy proven CMV esophagitis. S: Patient complained of some foot cramping overnight and he got oxycodone for the pain. He states that carbamazepine helps best with the cramping. States that he has some hesitation about getting line. No throat pain, mouth pain, or difficulty swallowing. Eating and drinking normally. No nausea orvomiting. Able to get up and walk around. Refusing heparin but using SCD's. Was NPO but can go backto normal diet. O: Vitals: 07/31/19 0523 BP: 150/69 Pulse: 80 Resp: 16 Temp: 98.3 ??F (36.8 ??C) SpO2: 96% General: well appearing, pleasant, obese man in no acute distress Heart: Regular rate and rhythm, early systolic murmur, normal S1, S2, no gallops or rubs, no S3 or S4 present Mouth: no oral ulcers present, no posterior pharyngeal edema or cobblestoning Lungs: regular rate and rhythm, no wheezes, rales, or rhonchi Abdomen: non-distended, hepatomegaly present, normal bowel sounds, no tenderness to palpation Extremities: 1+ edema bilaterally Neuro: a&ox4 Psych: mood appropriate A: Mr. San is a 44 year old male with a history of KIM cirrhosis s/p orthotopic liver transplant, HTN, DM, recently admitted for bacteremia and CARMEN who presents for treatment of biopsy proven CMV esophagitis. Patient is doing well and can be discharged today with 1 month of oral antivirals. 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 Hepatology recommended cellcept 250mg bid Continue cyclosporine 50mg bid Continue Entecavir 0.5mg weekly Hypocalcemia Should correct with dialysis HTN Has been hypertensive during hospital stay Consider readjustment of meds outpatient Continue home nifedipine, carvedilol, clonidine, terazosin DM Well controlled at this time Insulin lispro 5 units tid NPH 10u in AM and 5u in PM RLS/ foot cramping Continue home carbamazepine nightly Neuropathic pain Continue home gabapentin GERD Continue home pepcid DVT prophylaxis Refusing heparin, using SCD's Dispo: can discharge once outpatient antiviral in place Maru Carlson MS3 Cosigned by Loida Alcantar MD at 07/31/2019 10:56 AM EST Associated attestation - Loida Alcantar MD - 07/31/2019 10:56 AM EST This note is for teaching purposes only. Please refer the residents note from the same day for moredetails. Loida Alcantar MD, MS Artificial Intelligence Specialist Division of Digestive Diseases Pager: [phone] * Dav Johnson MD - 07/31/2019 7:46 AM EST Brief ID note Patient not seen, chart reviewed. Apparently GCV is too costly and takes too long to administer to be given with HD. IR consulted for line Vitals: 07/31/19 0523 BP: 150/69 Pulse: 80 Resp: 16 Temp: 98.3 ??F (36.8 ??C) SpO2: 96% 44 y.o. male s/p OLT admitted for CMV esophagitis 1. CMV esophagitis - given that his symptoms have largely resolved and that getting IV GCV arranged is proving to be problematic, will opt to try PO therapy instead - 4 weeks Valcyte 450mg PO qMWF after HD, end date 08/26/19 - follow-up CMV PCR; if positive will need weekly - follow-up with me ~08/20 ?? 2. Group C strep bacteremia - has 2 more doses Cefazolin on 07/31 and 08/02 Dav Johnson MD [phone] documented in this encounter H&P Notes * Goyo Ladd MD - 07/30/2019 2:30 AM EST Department of Internal Medicine History & Physical Patient: Aiden Stauffer CSN: [id number] Chief Complaint CMV esophagitis History of Present Illness Aiden Stauffer is a 44 y.o. male with a history of PMH of KIM s/p OLT 2017, CKD, HTN, and diabetespresenting to the hospital for treatment of CMV esophagitis. Recent admission 07/19-07/25 for type C strep bacteremia possibly from oral ulcers; required initiation of dialysis at that time; treated with 14 day course Ancef and held immunosuppressants while infected (EoT 08/02). However during this admission, also underwent EGD due to odynophagia and these oropharyngeal ulcers; biopsy results shows ulcerated squamous mucosa with acute and chronic inflammation, granulation tissue formation, reactive changes, and nuclear and cytoplasmic viral inclusions--consistent with CMV esophagitis; CMV confirmed by immunohistochemistry. Patient informed of results over phone and instructed to come to hospital for treatment. Denies anydysphagia, odynophagia, fevers/chills, oral lesions, cough, difficulty breathing or swallowing. Reports adherence to all his medications. Review of Systems Review of Systems Constitutional: Negative for chills, fever and malaise/fatigue. HENT: Negative for sore throat. Denies any current oral ulcers or dysphagia Eyes: Negative for blurred vision and pain. Respiratory: Negative for cough and shortness of breath. Cardiovascular: Negative for chest pain, palpitations and leg swelling. Gastrointestinal: Negative for abdominal pain, blood in stool, constipation (last BM earlier today), diarrhea, nausea and vomiting. Genitourinary: Negative for dysuria. Skin: Negative for rash. Neurological: Negative for dizziness and headaches. Past Medical History Past Medical History: Diagnosis Date ??? Acute pancreatitis ??? Ascites ??? Diabetes mellitus (CMS Dx) ??? Esophageal varices with bleeding (CMS Dx) ??? GERD (gastroesophageal reflux disease) ??? Hepatic encephalopathy (CMS Dx) ??? Hypertension ??? 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 Vitamin D deficiency Past [...] of Onset ??? Diabetes Sister Social History Social History Socioeconomic History ??? [...] file Gets together: Not on file Attends gnosticist service: Not on file Active member of [...] Feng CNP blood-glucose meter (ONETOUCH VERIO SYSTEM) [facility] Use as instructed. 10/18/17 Bere Feng CNP carBAMazepine (TEGRETOL) 200 mg tablet Take 200 mg by mouth at bedtime. Historical Provider, carvedilol (COREG) 25 MG tablet Take 2 tablets (50 mg total) by mouth 2 times a day with meals. 10/26/17 Bere Feng CNP cefazolin (ANCEF) IVPB 2g every Monday, 2g every Monday, 3g every Monday. To administer with dialysis. Give as IV piggyback in appropriate diluent and volume as specified by receiving facility. 07/25/19 08/01/19 Keon Qureshi MD cloNIDine HCl (CATAPRES) 0.1 MG tablet Take 1 tablet (0.1 mg total) by mouth 2 times a day. 07/25/19 Keon Qureshi MD cycloSPORINE modified (NEORAL/GENGRAF) 25 MG capsule Take 2 capsules (50 mg total) by mouth 2 timesa day. 07/25/19 Keon Qureshi MD doxazosin (CARDURA) 8 MG tablet 8 mg 2 times a day. 05/12/18 Historical Provider, entecavir (BARACLUDE) 0.5 MG tablet Take 1 tablet (0.5 mg total) by mouth every 7 days. 07/27/19 Keon Qureshi MD ergocalciferol (VITAMIN D2) 50,000 unit capsule Take 50,000 Units by mouth once a week. Historical Provider, famotidine (PEPCID) 20 MG tablet Take 20 mg by mouth daily. Historical Provider, fluticasone propionate (FLONASE) 50 mcg/actuation nasal spray use 2 spray(s) in each nostril daily 12/07/18 Historical Provider, gabapentin (NEURONTIN) 100 MG capsule Take 4 capsules (400 mg total) by mouth daily. 07/01/19 Sha Rhodes MD insulin glulisine U-100 (APIDRA U-100 INSULIN) 100 unit/mL injection Inject 5 Units subcutaneously 3 times a day with meals. 01/17/19 Niurka Valles MD insulin NPH isoph U-100 human (HUMULIN N NPH INSULIN KWIKPEN) 100 unit/mL (3 mL) InPn Inject subcutaneously 20 units in the AM and 8 units in the PM. 07/01/19 Malinda Rhodes MD lancets (ONETOUCH DELICA LANCETS) 33 gauge Misc Use 1 strip as directed 4 times daily before meals and at bedtime. 10/18/17 Bere Feng CNP lidocaine (LIDODERM) 5 % Apply 1 patch onto affected area once a day. Leave patch on for 12 hours then remove for 12 hours. 07/26/19 Keon Qureshi MD mycophenolate (CELLCEPT) 250 mg capsule Take 3 capsules (750 mg total) by mouth 2 times a day. 07/25/19 Keon Qureshi MD NIFEdipine (PROCARDIA-XL) 90 MG (OSM) 24 hr tablet Take 90 mg by mouth 2 times a day. 04/23/18 Historical Provider, ondansetron (ZOFRAN-ODT) 4 MG disintegrating tablet every 8 hours as needed. 04/11/18 Historical Provider, pen needle diabetic 32 gauge x 5/32 Ndle Use as directed to inject insulin 4 times daily. 10/16/17 Bere Feng CNP pen needle diabetic 32 gauge x 5/32 Ndle For use with insulin pen. Use as instructed. 10/16/17 Bere Feng CNP phenol (SORE THROAT) 1.4 % SprA Use 1 to 2 sprays in throat every 2 hours as needed. 07/25/19 Keon Qureshi MD polyethylene glycol (MIRALAX) 17 gram packet Take 17 g by mouth 2 times a day as needed. 01/17/19 Niurka Valles MD valACYclovir (VALTREX) 500 MG tablet Take 1 tablet (500 mg total) by mouth daily for 12 days. 07/25/19 08/06/19 Keon Qureshi MD Inpatient Meds: Scheduled: ??? aspirin 81 mg Oral Daily with breakfast ??? carBAMazepine 200 mg Oral Nightly (2099) ??? carvedilol 50 mg Oral BID WC ??? [START ON 07/31/2019] ceFAZolin (ANCEF) IVPB 2 g Intravenous Once per day on Mon ??? [START ON 08/02/2019] ceFAZolin (ANCEF) 3g in sodium chloride 0.9% 100 mL IVPB 3 g Intravenous Once per day on Mon ??? cloNIDine HCl 0.1 mg Oral BID ??? cycloSPORINE modified 50 mg Oral BID ??? entecavir 0.5 mg Oral Q7 Days ??? ergocalciferol 50,000 Units Oral Weekly ??? famotidine 20 mg Oral Daily 0900 ??? gabapentin 400 mg Oral Daily 0900 ??? heparin 5,000 Units Subcutaneous Q8H ??? insulin lispro 0-5 Units Subcutaneous TID AC ??? insulin lispro 5 Units Subcutaneous TID AC ??? insulin NPH 10 Units Subcutaneous Daily 0900 ??? insulin NPH 5 Units Subcutaneous Nightly (2099) ??? NIFEdipine 90 mg Oral BID ??? sodium chloride 10 mL Intravenous QS ??? terazosin 10 mg Oral Nightly (2099) Vital Signs Temp: [98.2 ??F (36.8 ??C)] 98.2 ??F (36.8 ??C) Heart Rate: [79] 79 Resp: [15] 15 BP: (158)/(87) 158/87 No intake or output data in the 24 hours ending 07/30/19 0230 Physical Exam Physical Exam Constitutional: Appearance: Normal appearance. HENT: Head: Normocephalic and atraumatic. Mouth/Throat: Mouth: Mucous membranes are moist. Pharynx: Oropharynx is clear. No oropharyngeal exudate or posterior oropharyngeal erythema. Comments: No oral lesions present Eyes: General: No scleral icterus. Extraocular Movements: Extraocular movements intact. Conjunctiva/sclera: Conjunctivae normal. Neck: Musculoskeletal: Neck supple. No neck rigidity. Cardiovascular: Rate and Rhythm: Normal rate and regular rhythm. Pulses: Normal pulses. Heart sounds: Normal heart sounds. No murmur. Pulmonary: Effort: Pulmonary effort is normal. Breath sounds: Normal breath sounds. No wheezing, rhonchi or rales. Abdominal: General: Bowel sounds are normal. There is no distension. Tenderness: There is no tenderness. Comments: Obese Lymphadenopathy: Cervical: No cervical adenopathy. Skin: General: Skin is warm and dry. Capillary Refill: Capillary refill takes less than 2 seconds. Coloration: Skin is not jaundiced. Neurological: General: No focal deficit present. Mental Status: He is alert. Psychiatric: Mood and Affect: Mood normal. Laboratory Data Lab 07/30/19 0029 07/25/19 0640 07/23/19 0414 WBC 4.3 4.2 4.4 HEMOGLOBIN 9.3* 8.9* 7.3* HEMATOCRIT 27.5* 27.3* 22.4* MEAN CORPUSCULAR VOLUME 84.6 82.6 83.0 PLATELETS 240 239 146 Lab 07/30/19 0029 07/25/1940 07/24/198 07/23/19 0414 SODIUM 142 141 139 139 POTASSIUM 4.1 4.5 4.4 4.4 CHLORIDE 102 103 103 103 CO2 26 26 24 21 BUN 17 27* 52* 64* CREATININE 3.52* 4.93* 6.40* 8.86* GLUCOSE 204* 128* 156* 107* Lab 07/30/19 0029 07/25/19 0640 07/24/198 07/23/19 0414 CALCIUM 7.3* 7.6* 7.1* 7.2* MAGNESIUM -- 2.0 1.9 2.0 PHOSPHORUS 3.4 3.7 4.7 5.8* Lab 07/30/19 0029 07/25/19 0640 07/24/198 07/23/19 0414 ALT 4* -- 6* -- AST 14 -- 13 -- ALK PHOS 93 -- 79 -- BILIRUBIN TOTAL 0.2 -- 0.2 -- BILIRUBIN DIRECT 0.11 -- 0.09 -- ALBUMIN 3.2* 3.2* 3.0* 3.0* 3.0* 2.9* Lab 07/30/19 0216 07/25/19 1321 07/25/19 0842 07/24/19 2121 POC GLU MONITORING DEVICE 172* 105* 123* 140* Diagnostic Studies No orders to display All prior studies reviewed in Epic. Assessment & Plan Aiden Stauffer is a 44 y.o. male being admitted to the hospital for CMV esophagitis. Medical problems being addressed in this encounter include the following: Principal Problem: Esophagitis, CMV ([facility] Dx) CMV Esophagitis Patient s/p liver transplant (09/2017) on chronic immunosuppression as below. Recent hospitalizationpatient was noted to have oral ulcers and CMV viremia. Biopsy was taken from ulcer which was positive for CMV. - Check CMV PCR now - Transplant ID consult - Will likely start Ganciclovir in AM - Hold home Valtrex 500mg BID (initial 12d EoT 08/06) Liver transplant (09/2017) Home immunosuppression: cyclosporine 50mg BID, entecavir 0.5mg weekly/Sat, mycophenolate 750mg BID. - Hold mycophenolate; cont other home immunosuppresants - Will need to check cyclosporine levels in am before dose as still titrating up Bacteremia Recent admission for type C strep bacteremia; currently still on Ancef at home - cont home Ancef MWF 2/2/3g with HD (EoT 08/02) ESRD On admission, Cr 3.5 - HD MWF; renal c/s placed Diabetes mellitus type 2 Hgb A1C 6.8% 07/18/19 though unreliable in setting of anemia Home regimen: NPH 20u AM/ 8u PM; glulisine 5mg TID - Decreased to NPH 10/5 - Lispro 5mg AC TID - LSDDI - FSG ACHS Chronic anemia Hgb baseline 8-9; required 2 units during prior admission - cont to monitor HTN Home carvedilol, clonidine, nifedipine, and doxazosin - cont home regimen; formulary change doxazosin-->terazosin GERD - Cont home pepcid VitD deficiency - cont weekly ergocalciferol (Monday) Neuropathic pain - cont home gabapentin Restless leg syndrome - cont home carbamazepine Nutrition: Diet Orders Diet regular starting at 07/29 1008 Code Status: Full Code Signed: RUPESH SWEET MD 07/30/2019, 2:30 AM Cosigned by Loida Alcantar MD at 07/30/2019 12:07 PM EST Associated attestation - Loida Alcantar MD - 07/30/2019 12:07 PM EST Attending Physician's Note: I have personally seen and examined the patient, reviewed the chart, imaging and labs and have discussed the case with ', agree with their note and confirm it. Please see ' note separately for more details. Briefly, This is a 44 y.o. year old male with past medical history of Kim cirrhosis status post OLT in 2018, CK 80, hypertension and diabetes who presented for treatment of CMV esophagitis. Patient had a recent admission in early July after he was found to be bacteremic from strep, with concern for oral ulcers and esophageal ulcers that were secondary to HSP. He was started on Ancef and acyclovir at home. Biopsies from the esophagus showed concern for CMV esophagitis and he was called in for IV therapy. Patient denies any other symptoms in fact his oral ulcers have healed and he is no longer having odynophagia or dysphagia. On admission patient was hemodynamically stable his white count was 3.7 hemoglobin 8.2 creatinine was 3.5 to patient is on hemodialysis. LFTs were within normal limits. Patient was continued on Ancef, home medications including entecavir. PE Vitals: 07/29/19 2334 07/30/19 0500 07/30/19 0600 07/30/19 0833 BP: 158/87 155/82 162/81 BP Location: Right arm Right arm Left arm Patient Position: Sitting Lying Lying Pulse: 79 84 81 Resp: 15 16 16 Temp: 98.2 ??F (36.8 ??C) 98.3 ??F (36.8 ??C) 98.4 ??F (36.9 ??C) TempSrc: Oral Oral Oral SpO2: 98% 96% 97% Weight: (!) 284 lb 8 oz (129 kg) Height: General: WD male in NAD, white male appears stated age, obese Skin: No lesions HEENT: Eyes - conjunctivae normal NecK: Trachea - midline, no thyromegally Lymph: No supraclavicular or submandibular lymphadenapathy Chest: Clear to P & A Heart: S1 & S2 nl., no murmur Abd: soft and nontender, no masses, hernias, or organomegally, active bowel sounds Extremities: no edema Neuro.: Alert and oriented x 3, Motor 5/5 x 4 A&P: This is a 44 y.o. year old male with past medical history of Kim cirrhosis status post OLT in 2018, CK 80, hypertension and diabetes who presented for treatment of CMV esophagitis. - We will engage transplant infectious disease for further management. - We'll discuss immunosuppression with transplant hepatology. - Continue home medication including Ancef. - Continue Pepcid - Sliding-scale insulin while in-house - CMV PCR - Home HTN medication - iHD MWF. - Anticipate discharge early this week. 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 He was called and told to come in. He feels well and deniesany further throat pain, throat ulcers, dysphagia, or odynophagia. He denies fevers/chills. Reports compliance with the cyclosporine and cellcept without any problems. He is eager to go home. RELEVANT LIVER HISTORY: He received a [facility] high risk donor, who was HBV ALEXANDRA +, HCV Ab+, ALEXANDRA negative and therefore will be on lifelong entecavir. Post-operative course was complicated by altered mental status and severe tremors thought to be related to tacrolimus toxicity, as well as hypoxia. REVIEW OF SYSTEMS: General: negative for chills, fever, malaise, night sweats, sleep disturbance, weight gain or weight loss Psychological: negative for anxiety, concentration difficulties, depression, memory difficulties orsuicidal ideation Ophthalmic: negative for blurry vision, decreased vision, double vision or loss of vision ENT: negative for epistaxis, headaches, hearing change, sore throat or vertigo Allergy and Immunology: negative for hives, nasal congestion or seasonal allergies Hematological and Lymphatic: negative for bleeding problems, blood clots or swollen lymph nodes Endocrine: negative for polydipsia/polyuria or temperature intolerance Respiratory: negative for cough, hemoptysis, orthopnea, pleuritic pain, shortness of breath or wheezing Cardiovascular: negative for chest pain, dyspnea on exertion or palpitations Gastrointestinal: negative for hematemesis, nausea/vomiting, altered bowel habits or swallowing difficulty/pain. Genito-Urinary: no dysuria, trouble voiding, or hematuria Musculoskeletal: negative for joint pain or muscular weakness Neurological: negative for dizziness, gait disturbance, seizures or tremors Dermatological: negative for nail changes, pruritus and rash PAST MEDICAL HISTORY: Past Medical History: Diagnosis Date ??? Acute pancreatitis ??? Ascites ??? Diabetes mellitus (CMS Dx) ??? Esophageal varices with bleeding (CMS Dx) ??? GERD (gastroesophageal reflux disease) ??? Hepatic encephalopathy (CMS Dx) ??? Hypertension ??? 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 Vitamin D deficiency PAST SURGICAL HISTORY: [...] Revision 04/2017 CURRENT MEDICATIONS: Scheduled Meds: ??? aspirin 81 mg Oral Daily with breakfast ??? carBAMazepine 200 mg Oral Nightly (2100) ??? carvedilol 50 mg Oral BID WC ??? [START ON 07/31/2019] ceFAZolin (ANCEF) IVPB 2 g Intravenous Once per day on Mon ??? [START ON 08/02/2019] ceFAZolin (ANCEF) 3g in sodium chloride 0.9% 100 mL IVPB 3 g Intravenous Once per day on Mon ??? cloNIDine HCl 0.1 mg Oral BID ??? cycloSPORINE modified 50 mg Oral BID ??? entecavir 0.5 mg Oral Q7 Days ??? ergocalciferol 50,000 Units Oral Weekly ??? famotidine 20 mg Oral Daily 0900 ??? gabapentin 400 mg Oral Daily 0900 ??? heparin 5,000 Units Subcutaneous Q8H ??? insulin lispro 0-5 Units Subcutaneous TID AC ??? insulin lispro 5 Units Subcutaneous TID AC ??? insulin NPH 10 Units Subcutaneous Daily 0900 ??? insulin NPH 5 Units Subcutaneous Nightly (2099) ??? mycophenolate 250 mg Oral BID ??? NIFEdipine 90 mg Oral BID ??? sodium chloride 10 mL Intravenous QS ??? terazosin 10 mg Oral Nightly (2099) Continuous Infusions: PRN Meds:.dextrose 10% in water OR dextrose 10% in water, glucose, polyethylene glycol HOME MEDICATIONS: No current facility-administered medications on [...] by mouth 2 times a day with meals.120 tablet 5 ??? cefazolin (ANCEF) IVPB 2g every Monday, 2g every Monday, 3g every Monday. To administer withdialysis. Give as IV piggyback in appropriate diluent and volume as specified by receiving facility. ??? cloNIDine HCl (CATAPRES) 0.1 MG tablet Take 1 tablet (0.1 mg total) by mouth 2 times a day. ??? cycloSPORINE modified (NEORAL/GENGRAF) 25 MG capsule Take 2 capsules (50 mg total) by mouth 2 times a day. 120 capsule 1 ??? doxazosin (CARDURA) 8 MG tablet 8 mg 2 times a day. ??? ergocalciferol (VITAMIN D2) 50,000 unit capsule Take 50,000 Units by mouth once a week. ??? famotidine (PEPCID) 20 MG tablet Take 20 mg by mouth daily. ??? gabapentin (NEURONTIN) 100 MG capsule Take 4 capsules (400 mg total) by mouth daily. 180 capsule 0 ??? insulin glulisine U-100 (APIDRA U-100 INSULIN) 100 unit/mL injection Inject 5 Units subcutaneously 3 times a day with meals. 10 mL 0 ??? mycophenolate (CELLCEPT) 250 mg capsule Take 3 capsules (750 mg total) by mouth 2 times a day. 0 ??? NIFEdipine (PROCARDIA-XL) 90 MG (OSM) 24 hr tablet Take 90 mg by mouth 2 times a day. ??? valACYclovir (VALTREX) 500 MG tablet Take 1 tablet (500 mg total) by mouth daily for 12 days. 12 tablet 0 ??? blood sugar diagnostic Str Use to test blood sugar up to 4 times a day. Diagnosis for use: E 9.65. For use with One Touch Verio meters. 150 strip 5 ??? blood-glucose meter (App Partner VERIO SYSTEM) [facility] Use as instructed. 1 each 0 ??? entecavir (BARACLUDE) 0.5 MG tablet Take 1 tablet (0.5 mg total) by mouth every 7 days. 30 tablet 0 ??? fluticasone propionate (FLONASE) 50 mcg/actuation nasal spray use 2 spray(s) in each nostril daily 11 ??? insulin NPH isoph U-100 human (HUMULIN N NPH INSULIN KWIKPEN) 100 unit/mL (3 mL) InPn Inject subcutaneously 20 units in the AM and 8 units in the PM. 15 mL 5 ??? lancets (Viking Cold SolutionsTOUCH DELICA LANCETS) 33 gauge [facility] Use 1 strip as directed 4 times daily before meals and at bedtime. 150 each 5 ??? ondansetron (ZOFRAN-ODT) 4 MG disintegrating tablet every 8 hours as needed. ??? pen needle, diabetic 32 gauge x 5/32 Ndle Use as directed to inject insulin 4 times daily. 150each 5 ??? pen needle, diabetic 32 gauge x 5/32 Ndle For use with insulin pen. Use as instructed. 150 each 5 ??? polyethylene glycol (MIRALAX) 17 gram packet Take 17 g by mouth 2 times a day as needed. 100 packet 0 ??? [DISCONTINUED] lidocaine (LIDODERM) 5 % Apply 1 patch onto affected area once a day. Leave patch on for 12 hours then remove for 12 hours. 30 patch 0 ??? [DISCONTINUED] phenol (SORE THROAT) 1.4 % SprA Use 1 to 2 sprays in throat every 2 hours as needed. 177 mL 0 ALLERGIES: Allergies Allergen Reactions ??? Codeine Sulfate Hyper ??? Codeine Other (See Comments) Becomes hyper SOCIAL HISTORY: Social History Substance and Sexual Activity Alcohol Use No Social History Substance and Sexual Activity Drug Use No Social History Tobacco Use Smoking Status Never Smoker Smokeless Tobacco Never Used FAMILY HISTORY: Family History Problem Relation Age of Onset ??? Diabetes Sister VITALS: Vitals: 07/30/19 1647 BP: 146/80 Pulse: 77 Resp: 16 Temp: 98.3 ??F (36.8 ??C) SpO2: 95% PHYSICAL EXAM: GEN: No acute distress. Alert and oriented x3. Appears stated age. HEENT: PERRLA. Atraumatic. Normocephalic. Moist mucous membranes. No ulcers or exudates noted in the oropharynx. CARD: RRR, no murmurs, rubs, or gallops. RESP: CTAB, no wheezes or crackles. ABD: NTND, soft, BS+, no organomegaly. EXT: No peripheral edema. Peripheral pulses 2+. No cyanosis. No obvious deformity. DERM: No rash or bruising. Skin intact. Normal color, texture, and turgor. Warm and dry. NEURO: CN2-12 grossly intact. No focal deficits PSYCH: Normal mood and affect. Normal speech and behavior. LABS: Lab Results Component Value Date WBC 3.7 (L) 07/30/2019 RBC 2.93 (L) 07/30/2019 HGB 8.2 (L) 07/30/2019 HCT 24.8 (L) 07/30/2019 MCV 84.6 07/30/2019 MCH 27.8 07/30/2019 MCHC 32.9 07/30/2019 RDW 14.2 07/30/2019 PLT 271 07/30/2019 Lab Results Component Value Date GLUCOSE 204 (H) 07/30/2019 BUN 17 07/30/2019 CO2 26 07/30/2019 CREATININE 3.52 (H) 07/30/2019 K 4.1 07/30/2019 NA 142 07/30/2019 CL 102 07/30/2019 CALCIUM 7.3 (L) 07/30/2019 Lab Results Component Value Date MG 1.8 07/30/2019 Lab Results Component Value Date PHOS 3.4 07/30/2019 Lab Results Component Value Date INR 1.1 07/19/2019 PROTIME 15.0 07/19/2019 Lab Results Component Value Date ALT 4 (L) 07/30/2019 AST 14 07/30/2019 ALKPHOS 93 07/30/2019 BILITOT 0.2 07/30/2019 BILIDIRECT 0.11 07/30/2019 Lab Results Component Value Date HGB 8.2 (L) 07/30/2019 HGB 9.3 (L) 07/30/2019 HGB 8.9 (L) 07/25/2019 HGB 7.3 (L) 07/23/2019 HGB 7.9 (L) 07/22/2019 HGB 7.5 (L) 07/21/2019 HGB 7.3 (L) 07/21/2019 HGB 6.7 (L) 07/20/2019 HGB 7.4 (L) 07/19/2019 HGB 12.8 (A) 07/18/2019 ASSESSMENT AND PLAN: 44 y.o.??male??with a history of 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 He was recently in the hospital for strep C bacteremia and initiation of dialysis. During that hospitalization, an EGD w/ biopsy was performed for further evaluation of any disease in the esophagus, and an esophageal nodule came back as ulcerated tissue with viral inclusion bodies, and stains positive for CMV. He is admitted for initiation of IV therapy. His CMV quant last hospitalization came back at 604. Transplant hepatology is consulted for immunosuppression management in the setting of CMV infection. -Treatment of CMV esophagitis per transplant ID -Reduce cellcept to 250mg BID -Continue cyclosporine at 50mg BID -Continue home entecavir, renally dose since he is on HD -Can obtain cyclosporine trough in the AM if patient is still here at that time. Patient seen and discussed with attending physician, Dr. Sullivan. Eris Nguyen MD GI/Hepatology Fellow Cosigned by Tej Sullivan MD at 07/30/2019 7:32 PM EST Associated attestation - Tej Sullivan MD - 07/30/2019 7:32 PM EST Attending Physician's Note: I have personally seen and examined the patient, reviewed the chart, imaging and labs and have discussed the case with , agree with his note and confirm it. Please see 's note separately for more details. 44 y.o. male s/p OLT in 2018 for KMI cirrhosis. He had a recent admission for throat pain and strep infection which improved with appropriate Abx. Had EGD and en esophageal nodule. Biopsy results yesterday came back with CMV infection. He had low level viremia last week which did not warrant treatment but called in for for inpatient treatment with IV gancyclovir for tissue invasive disease. Denies any symptoms. PE Vitals: 07/30/19 0500 07/30/19 0600 07/30/19 0833 07/30/19 1647 BP: 155/82 162/81 146/80 BP Location: Right arm Left arm Left arm Patient Position: Lying Lying Lying Pulse: 84 81 77 Resp: 16 16 16 Temp: 98.3 ??F (36.8 ??C) 98.4 ??F (36.9 ??C) 98.3 ??F (36.8 ??C) TempSrc: Oral Oral Oral SpO2: 96% 97% 95% Weight: (!) 284 lb 8 oz (129 kg) Height: In no apparent cardiopulmonary distress Sclera anicteric Abdomen is soft, non-tender Alert and oriented times three, no asterixis No LE edema A&P 44 y.o. year old male with complex medical issues as detailed in HPI. CMV tissue invasive disease. Treatment as per transplant ID. Will recommend lowering Cellcept to 250 mg BID for 2-3 weeks. He hasnot had any biopsy proven rejection since transplant. Continue current dose cyclosporine Tej Sullivan MD GI and Hepatology Staff * Dav Johnson MD - 07/30/2019 3:44 PM ESTAssociated Order(s): INPATIENT CONSULT TO TRANSPLANT INFECTIOUS DISEASES See attestation of resident note for full details. Dav Johnson MD * Merle Holt CNP - 07/30/2019 2:03 PM ESTAssociated Order(s): IP CONSULT TO RENAL [facility] Nephrology Consults Progress Note Nephrology Consult Physician: Dr. Cruz Primary Team Physician: Loida Alcantar MD Primary Retail Agent: [facility] Days: 1 Subjective: Chief Complaint on Adm: Group C strep bacteremia; CMV esophagitis Reason for follow up: CARMEN/CKD now requiring SALES RECEPTIONIST Presenting assessment: Aiden Stauffer is a 44 y.o. male with past medical history of KIM cirrhosis s/p OLT in 2017; CK 80, CKD (noted proteinuria of 13 gm in January 2019); HTN, DM2 who presented to hospital with CMV esophagitis. Patient had recent admission on 07/19/19 for bacteremia and acute on chronic kidney injury. Patient was initiated on dialysis during this admission with sr creat peak at 7.7 on admission. Had 3 dialysis treatments while at [facility] was then discharged home on 07/25/2019. Patient with past medical history of CKD and was admitted in June 2019 with CARMEN with a sr creatof 4.8 and was transferred to . Nephrology consulted for continued dialysis management Contrast Exposure: CT neck 07/22 Nephrotoxic Agents: cefazolin, Hypotensive episodes: no Interval History: Seen in room No acute distress No complaints of SOB BP stable Currently on HD MWF at [facility] unit in [facility]; Will plan HD in am Past Medical History: Diagnosis Date ??? Acute pancreatitis ??? Ascites ??? Diabetes mellitus (CMS Dx) ??? Esophageal varices with bleeding (CMS Dx) ??? GERD (gastroesophageal reflux disease) ??? Hepatic encephalopathy (CMS Dx) ??? Hypertension ??? 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 Vitamin D deficiency Past [...] Socioeconomic History ??? Marital status: Spouse name: None ??? Number of children: None ??? Years of education: None ??? Highest education level: None Occupational History ??? None Social Needs ??? Financial resource strain: None ??? Food insecurity: Worry: None Inability: None ??? Transportation needs: Medical: None Non-medical: None Tobacco Use ??? Smoking status: Never Smoker ??? Smokeless tobacco: Never Used Substance and Sexual Activity ??? Alcohol use: No ??? Drug use: No ??? Sexual activity: Yes Partners: Female control/protection: Condom Lifestyle ??? Physical activity: Days per week: None Minutes per session: None ??? Stress: None Relationships ??? Social connections: Talks on phone: None Gets together: None Attends gnosticist service: None Active member of club or organization: None Attends meetings of clubs or organizations: None Relationship status: None ??? Intimate partner violence: Fear of current or ex partner: None Emotionally abused: None Physically abused: None Forced sexual activity: None Other Topics Concern ??? None Social History Narrative ??? None Review of Systems Constitutional: Negative for chills, fever and malaise/fatigue. HENT: Negative. Eyes: Negative. Respiratory: Negative for shortness of breath and wheezing. Cardiovascular: Negative. Gastrointestinal: Negative for nausea and vomiting. Genitourinary: CARMEN/CKD requiring HD Musculoskeletal: Negative. Neurological: Negative. Endo/Heme/Allergies: Bruises/bleeds easily. Psychiatric/Behavioral: Negative. All other systems reviewed and are negative. ROS updated today 07/30/2019. Inpatient Meds: Scheduled: ??? aspirin 81 mg Oral Daily with breakfast ??? carBAMazepine 200 mg Oral Nightly (2099) ??? carvedilol 50 mg Oral BID WC ??? [START ON 07/31/2019] ceFAZolin (ANCEF) IVPB 2 g Intravenous Once per day on Mon ??? [START ON 08/02/2019] ceFAZolin (ANCEF) 3g in sodium chloride 0.9% 100 mL IVPB 3 g Intravenous Once per day on Mon ??? cloNIDine HCl 0.1 mg Oral BID ??? cycloSPORINE modified 50 mg Oral BID ??? entecavir 0.5 mg Oral Q7 Days ??? ergocalciferol 50,000 Units Oral Weekly ??? famotidine 20 mg Oral Daily 0900 ??? gabapentin 400 mg Oral Daily 0900 ??? heparin 5,000 Units Subcutaneous Q8H ??? insulin lispro 0-5 Units Subcutaneous TID AC ??? insulin lispro 5 Units Subcutaneous TID AC ??? insulin NPH 10 Units Subcutaneous Daily 0900 ??? insulin NPH 5 Units Subcutaneous Nightly (2099) ??? mycophenolate 250 mg Oral BID ??? NIFEdipine 90 mg Oral BID ??? sodium chloride 10 mL Intravenous QS ??? terazosin 10 mg Oral Nightly (2099) Continuous: PRN:dextrose 10% in water OR dextrose 10% in water, glucose, polyethylene glycol Allergies Allergen Reactions ??? Codeine Sulfate Hyper ??? Codeine Other (See Comments) Becomes hyper Objective: Temp: [98.2 ??F (36.8 ??C)-98.4 ??F (36.9 ??C)] 98.4 ??F (36.9 ??C) Heart Rate: [79-84] 81 Resp: [15-16] 16 BP: (155-162)/(81-87) 162/81 No intake/output data recorded. Wt Readings from Last 3 Encounters: 07/30/19 (!) 284 lb 8 oz (129 kg) 07/24/19 (!) 290 lb (131.5 kg) 07/01/19 (!) 292 lb 14.4 oz (132.9 kg) Date 07/29/19 07 - 07/30/19 0659 07/30/19 0700 - 07/31/19 0659 Shift 4841-6667 4183-2187 0121-5583 24 Hour Total 4155-2412 7094-2497 4324-6392 24 Hour Total INTAKE Shift Total(mL/kg) OUTPUT Urine Urine Occurrence 2 x 2 x Shift Total(mL/kg) Weight (kg) 129 129 129 129 129 129 Physical Exam Vitals signs and nursing note reviewed. Constitutional: Appearance: He is obese. HENT: Head: Normocephalic and atraumatic. Mouth/Throat: Mouth: Mucous membranes are moist. Eyes: Conjunctiva/sclera: Conjunctivae normal. Neck: Musculoskeletal: Normal range of motion and neck supple. Cardiovascular: Rate and Rhythm: Normal rate and regular rhythm. Pulmonary: Effort: Pulmonary effort is normal. No respiratory distress. Breath sounds: Normal breath sounds. Abdominal: General: Bowel sounds are normal. There is no distension. Palpations: Abdomen is soft. Tenderness: There is no tenderness. Musculoskeletal: Normal range of motion. Right lower leg: No edema. Left lower leg: No edema. Skin: General: Skin is warm and dry. Neurological: Mental Status: He is oriented to person, place, and time. Psychiatric: Mood and Affect: Mood normal. Behavior: Behavior normal. Thought Content: Thought content normal. Judgement: Judgment normal. Physical exam updated today 07/30/2019. Labs: Lab 07/30/198 07/30/19 0029 07/25/19 0640 WBC 3.7* 4.3 4.2 HEMOGLOBIN 8.2* 9.3* 8.9* HEMATOCRIT 24.8* 27.5* 27.3* MEAN CORPUSCULAR VOLUME 84.6 84.6 82.6 PLATELETS 271 240 239 Lab 07/30/19 0418 07/30/19 0029 07/25/19 0640 07/24/19 0328 SODIUM -- 142 141 139 POTASSIUM -- 4.1 4.5 4.4 CHLORIDE -- 102 103 103 CO2 -- 26 26 24 BUN -- 17 27* 52* CREATININE -- 3.52* 4.93* 6.40* GLUCOSE -- 204* 128* 156* CALCIUM -- 7.3* 7.6* 7.1* MAGNESIUM 1.8 -- 2.0 1.9 PHOSPHORUS -- 3.4 3.7 4.7 Lab 07/30/19 0029 07/25/19 0640 07/24/19 0328 ALT 4* -- 6* AST 14 -- 13 ALK PHOS 93 -- 79 BILIRUBIN TOTAL 0.2 -- 0.2 BILIRUBIN DIRECT 0.11 -- 0.09 ALBUMIN 3.2* 3.2* 3.0* 3.0* 3.0* Invalid input(s): DONALDO Lab 07/30/19 1241 07/30/19 0749 07/30/19 0216 07/25/19 1321 POC GLU MONITORING DEVICE 123* 141* 172* 105* Microbiology Data: Lab Results Component Value Date LABGRAM 10/25/2017 Minimal Oral Contamination <25 Polymorphonuclear Leukocytes; <10 Squamous Epithelial Cells Per Low Power Field LABGRAM Moderate Gram Positive Cocci in Chains and Pairs; 10/25/2017 ISO2 Scant Growth (A) 10/25/2017 ISO2 Pseudomonas fluorescens (A) 10/25/2017 ISO2 Identified by MALDI-TOF MS (A) 10/25/2017 ISO2 Testing Performed at Laboratory (A) 10/25/2017 Lab Results Component Value Date ISO1 <1,000 cfu/mL 07/20/2019 ISO1 Mixed Skin/Urogenital Brionna. No Further Workup. 07/20/2019 ISO2 Scant Growth (A) 10/25/2017 ISO2 Pseudomonas fluorescens (A) 10/25/2017 ISO2 Identified by MALDI-TOF MS (A) 10/25/2017 ISO2 Testing Performed at Laboratory (A) 10/25/2017 LABGRAM 10/25/2017 Minimal Oral Contamination <25 Polymorphonuclear Leukocytes; <10 Squamous Epithelial Cells Per Low Power Field LABGRAM Moderate Gram Positive Cocci in Chains and Pairs; 10/25/2017 Radiology/ Function Tests: No orders to display Assessment & Plan: Aiden Stauffer is a 44 y.o. male with past medical history of KIM cirrhosis s/p OLT in 2018; CK 80, CKD (noted proteinuria of 13 gm in January 2019); HTN, DM2 who presented to hospital with CMV esophagitis. Patient had recent admission on 07/19/19 for bacteremia and acute on chronic kidney injury. Patient was initiated on dialysis during that admission with sr creat peak at 7.7 on admission. Had 3 dialysis treatments while at [facility] was then discharged home on 07/25/2019. 1. CARMEN on CKD now on HD CKD likely diabetic nephropathy Baseline sr creat @ 4.0 Noted Proteinuria in January 2019 of 13.gms Peak sr creat 7.7 on 07/19/19 and initiated on HD Access: [facility] Primary Retail Agent and Unit in [facility] Will plan HD on MWF Monitor I/O and wts Dose meds to creat clearance; avoid nephrotoxic agents 2. Anemia of chronic dx H/H 8.2/24.8 Transfuse as indicated 3. Renal osteodystrophy Phos 3.4 Calcium 7.3; albumin 3.2 Vit D deficiency; on erogcalciferol 4. HTN Stable at present On clonidine 0.1 mg two times daily; carvedilol 50 mg BID; Nifedipine 90 mg BID; Avoid hypotension 5. S/p OLT 2017 On cellcept 250 mg BID entecavir 0.5 mg every 7 days Cyclosporine 50 mg BID 6. CMV esophagitis ID following Planning: Cefazolin 2g/2/g/3g IV MWF with HD last dose on 08/02/19 AND Ganciclovir 160 mg IV MWF with HD last dose on 08/12/19 followed by Valcyte 450 mg oral every MWF after HD end date 08/26/19 Nutrition: Diet Orders Diet regular starting at 07/29 6380 Disposition: per primary team Follow up: [facility] Morbidity/Complication Risk felt to be: moderate/high The above findings and plan were discussed with the primary community health education coordinator Dr. Cruz Thank you for involving Nephrology in the care of Aiden Stauffer. If you have any questions or concerns please feel free to contact us. Merle LEA-LEXA, CCRN Pager: [phone] 2:04 PM 07/30/2019 Cosigned by Lionel Cruz MD at 07/30/2019 4:14 PM EST Associated attestation - Lionel Cruz MD - 07/30/2019 4:14 PM EST I saw and examined the patient. I discussed with LAB ANIMAL TECHNICIAN channel and agree with her findings and plan asdocumented in the note. Dialysis dependent liver transplant patient who needs iv ganciclovir for CMV esophagitis. Can arrange for treatment on dialysis days Lionel Cruz MD * Lashell Rubio MD - 07/30/2019 11:38 AM ESTAssociated Order(s): INPATIENT CONSULT TO TRANSPLANT INFECTIOUS DISEASES Infectious Disease Consultation Patient: Aiden Stauffer CSN: [id number] Chief Complaint/Reason for Consult CMV esophagitis History of Present Illness Aiden Stauffer is a 44 y.o. male with a history of KIM s/p OLT in 2018, CARMEN on CKD currently on hemodialysis, HTN who was admitted on 07/30 after EGD pathology from 07/24 was consistent with CMV esophagitis and he was directly admitted for treatment. The patient was recently admitted from 07/19-07/25/19 for group C streptococcal bacteremia, believedto be secondary to oral ulcers. He was started on an IV cefazolin with a planned end of treatment 08/02 to complete a 2 week course. During this hospitalization he underwent a diagnostic EGD for odynophagia and oral ulcers. CMV IgM and IgG were positive and he was started on valacyclovir on 07/25/19 for oral ulcers for a planned 14 day course. There was no clear evidence of esophagitis on the EGD; however, biopsies were taken of a lower esophageal nodule, with pathology showing granulation tissue and nuclear and cytoplasmic inclusions consistent with CMV esophagitis (confirmed by CMV immunochemistry). He feels well overall and states his oral ulcers have actually healed since his previous admission. He denies any dysphagia and odynophagia. Immunosuppression: - cyclosporine 50mg PO BID - cellcept 750mg PO BID Review of Systems General: denies fevers, chills, night sweats, weight loss ENT: denies rhinorrhea, sore throat, ear pain Hematological and Lymphatic: denies easy bruising, bleeding or lymphadenopathy. Respiratory: denies cough, shortness of breath Cardiovascular: Denies chest pain, lower extremity edema Gastrointestinal: denies nausea, vomiting, diarrhea. : denies dysuria, hematuria Musculoskeletal: denies joint effusions, joint pain, joint erythema. Neurological: denies seizures, weakness, numbness Skin: denies rashes, erythema. Psych: denies depression, anxiety, or other mood changes Past Medical History Past Medical History: Diagnosis Date ??? Acute pancreatitis ??? Ascites ??? Diabetes mellitus (CMS Dx) ??? Esophageal varices with bleeding (CMS Dx) ??? GERD (gastroesophageal reflux disease) ??? Hepatic encephalopathy (CMS Dx) ??? Hypertension ??? 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 Vitamin D deficiency Past [...] of Onset ??? Diabetes Sister Social History Social History Socioeconomic History ??? [...] file Gets together: Not on file Attends gnosticist service: Not on file Active member of [...] History Narrative ??? Not on file Medications Inpatient Meds: Scheduled: ??? aspirin 81 mg Oral Daily with breakfast ??? carBAMazepine 200 mg Oral Nightly (2099) ??? carvedilol 50 mg Oral BID WC ??? [START ON 07/31/2019] ceFAZolin (ANCEF) IVPB 2 g Intravenous Once per day on Mon ??? [START ON 08/02/2019] ceFAZolin (ANCEF) 3g in sodium chloride 0.9% 100 mL IVPB 3 g Intravenous Once per day on Mon ??? cloNIDine HCl 0.1 mg Oral BID ??? cycloSPORINE modified 50 mg Oral BID ??? entecavir 0.5 mg Oral Q7 Days ??? ergocalciferol 50,000 Units Oral Weekly ??? famotidine 20 mg Oral Daily 0900 ??? gabapentin 400 mg Oral Daily 0900 ??? heparin 5,000 Units Subcutaneous Q8H ??? insulin lispro 0-5 Units Subcutaneous TID AC ??? insulin lispro 5 Units Subcutaneous TID AC ??? insulin NPH 10 Units Subcutaneous Daily 0900 ??? insulin NPH 5 Units Subcutaneous Nightly (2099) ??? mycophenolate 250 mg Oral BID ??? NIFEdipine 90 mg Oral BID ??? sodium chloride 10 mL Intravenous QS ??? terazosin 10 mg Oral Nightly (2099) Continuous: PRN:dextrose 10% in water OR dextrose 10% in water, glucose, polyethylene glycol Vital Signs Temp: [98.2 ??F (36.8 ??C)-98.4 ??F (36.9 ??C)] 98.4 ??F (36.9 ??C) Heart Rate: [79-84] 81 Resp: [15-16] 16 BP: (155-162)/(81-87) 162/81 Physical Exam General: reclined in bed, awake and alert Head: normocephalic, atraumatic Eyes: PERRL, EOMI, no conjunctival pallor, sclera anicteric Ears, nose, mouth, throat: prior ulcerations have healed. oropharynx clear without exudates, thrush. Good dentition. Neck: supple, no thyromegaly Cardiovascular: RRR, normal S1, S2, no M/R/G Respiratory: CTA, moving air well, breath sounds symmetric GI: Obese, soft, nontender, nondistended, normal bowel sounds Musculoskeletal: no acute joint abnormalities Skin: no rashes, lesions Lymphatic: No cervical, axillary, inguinal lymphadenopathy Neurologic: CN II-XII intact, Spontaneous movements present in all four extremities. No focal deficits Psychiatric: normal mood and affect Extremities: no clubbing, cyanosis, edema Laboratory Data Lab 07/30/19 0418 07/30/19 0029 07/25/19 0640 WBC 3.7* 4.3 4.2 HEMOGLOBIN 8.2* 9.3* 8.9* HEMATOCRIT 24.8* 27.5* 27.3* MEAN CORPUSCULAR VOLUME 84.6 84.6 82.6 PLATELETS 271 240 239 Lab 07/30/19 0029 07/25/19 0640 07/24/19 0328 SODIUM 142 141 139 POTASSIUM 4.1 4.5 4.4 CHLORIDE 102 103 103 CO2 26 26 24 BUN 17 27* 52* CREATININE 3.52* 4.93* 6.40* GLUCOSE 204* 128* 156* CALCIUM 7.3* 7.6* 7.1* PHOSPHORUS 3.4 3.7 4.7 Lab 07/30/19 0029 07/25/19 0640 07/24/19 0328 ALT 4* -- 6* AST 14 -- 13 ALK PHOS 93 -- 79 BILIRUBIN TOTAL 0.2 -- 0.2 BILIRUBIN DIRECT 0.11 -- 0.09 ALBUMIN 3.2* 3.2* 3.0* 3.0* 3.0* No results found for: CRP No results found for: ESR Invalid input(s): BEV Lab Results Component Value Date LABGRAM 10/25/2017 Minimal Oral Contamination <25 Polymorphonuclear Leukocytes; <10 Squamous Epithelial Cells Per Low Power Field LABGRAM Moderate Gram Positive Cocci in Chains and Pairs; 10/25/2017 ISO2 Scant Growth (A) 10/25/2017 ISO2 Pseudomonas fluorescens (A) 10/25/2017 ISO2 Identified by MALDI-TOF MS (A) 10/25/2017 ISO2 Testing Performed at Laboratory (A) 10/25/2017 Diagnostic Studies None Assessment & Plan 44 year old male with PMH KIM s/p OLT in 2018 recently admitted for Group C strep bacteremia and subsequently readmitted for CMV esophagitis. 1. CMV Esophagitis Plan for 4 weeks of therapy with the followin. Start Ganciclovir 160mg IV MWF with HD, last dose 07/26/19 followed by: 2. Valcyte 450mg PO qMWF after HD, end date 08/26/19 - CMV quant pending - Will have follow up with Dr. Johnson 2. Group C Strep Bacteremia - continue cefazolin 2g/2g/3g with HD MWF until 08/02 to complete course. These recommendations were discussed with the primary team. Patient seen and discussed with Dr. Johnson. Signed: Lashell Rubio PGY-2 07/30/2019 11:20 AM. Pager: [phone] Cosigned by Dav Johnson MD at 07/30/2019 3:11 PM EST Associated attestation - Dav Johnson MD - 07/30/2019 3:11 PM EST Infectious Disease Attending Note Aiden Stauffer was seen with the fellow, resident or student. If seen with a student, the patient had previously also been discussed with the fellow. I personally interviewed and examined the patient. I reviewed the documentation by the fellow, resident or student and agree unless documented otherwise below. Reason for today's visit: CMV esophagitis Past medical, family, and social histories reviewed as previously documented. Assessment & Plan Aiden Stauffer is a 44 y.o. male. The medical issues being addressed in today's encounter are as follows: CMV esophagitis - 2 weeks IV Ganciclovir with HD foloowed by 2 weeks PO Valcyte, doses and schedule per follow-up discharge note - follow-up CMV PCR; if positive will need weekly - follow-up with me ~08/20 2. Group C strep bacteremia - has 2 more doses Cefazolin on 07/31 and 08/02 Dav Johnson MD Attending Physician Department of Internal Medicine, Division of Infectious Diseases 07/30/2019 3:09 PM [phone] documented in this encounter Miscellaneous Notes * Plan of Care - Zeny Hernandez RN - 07/31/2019 12:34 PM EST Hemodialysis Treatment Plan of Care Goal: Patient will achieve appropriate dialysis treatment as evidenced by: Achieved ordered dry weight and/or fluid removal with post weight being within 0.7 kg above or below ordered UF goal. Remained hemodynamically stable within ordered parameters and absence of adverse intradialytic symptoms Achieve effective regulation of serum electrolyte levels and/or drug toxicity as indicated Patient Tolerated Hemodialysis Procedure well Net fluid removal (ml): 2400 mL Hemodialysis Weights Dry Weight: 128 kg (282 lb 3 oz) Pre Weight: 130.4 kg (287 lb 7.7 oz) Pre Weight Source: Standing Scale Post Weight: 128 kg (282 lb 3 oz) Post Weight Source: Standing Scale HD Post Treatment Vitals: BP: (!) 182/92 Heart Rate: 79 Temp: 98.8 ??F (37.1 ??C) Resp rate:16 Delivered Dialysis Prescription: Potassium (mEq/L): 3 Calcium (mEq/L): 2.5 Sodium (mEq/L): 138 Bicarbonate (mEq/L): 32 Blood Flow: 350 Dialysate Flow: 700 Prescribed Treatment Time (minutes): 240 Duration of Treatment (minutes): 240 minutes HD Access Used:Right IJ Lidocaine Used: N/A Access Needle Placement / Position: NA HD Access Function: Good Other / Comments: DINO BATES Report Received From: Erika BATES Report Given To: Erika Machine Number: [id number] Hemodialysis Meds: Aranesp (Darbepoetin) No therapy plan of the specified type found. IV Iron (Venofer) No therapy plan of the specified type found. Hepatitis Status: Lab Results Component Value Date HEPBCAB Nonreactive 07/22/2019 HEPBSAG Nonreactive 07/22/2019 Reason for admission CMV ESOPHAGITIS * Care Coordination - RADHA Mead LSW - 07/31/2019 9:42 AM EST Dining Room Helper met with GI team for daily rounds. Patient is not medically ready for discharge at this time. Anticipated to discharge home today, Tuesday 07/31, home with no needs. Spouse to [place] home. Per ID recs, patient to be switched to oral medications to treat infection. SW to notify dialysis center and will fax updated ID note. Patient to receive Cefazolin on Monday at dialysis. No further needs. RADHA Mead LSW Inpatient Dining Room Helper GI Service [phone] * Care Coordination - RADHA Mead LSW - 07/30/2019 12:20 PM EST Dining Room Helper met with GI team for daily rounds. Patient is medically ready for discharge at this time. Anticipated to discharge home today, Monday 07/30. LEODAN is familiar with patient per his admission on 07/19. Dialysis chair time is MWF at 11:15 AM. Patient needs to have IV antibiotics with HD upon discharge. LEODAN contacted [facility] [phone] and will fax ID recs to them at [phone]. Need to ensure they can provide recommended meds.Charge nurse to call social work back. 1530- LEODAN did not hear back from dialysis center and reached out again. Spoke to drapery rod assembler who provided Dr. Elmore's direct contact number to inquire about the ability for the center to provide needed meds. Upon speaking to Dr. Elmore they are unable to provide Ganciclovir, but they are able to administer Cefazolin at the dialysis center. LEODAN spoke to patient at bedside regarding this and the need to set up home care and infusion services for Ganciclovir to be administered at home. Patient declined to see lists of companies and is agreeable to work with a previous provider, [facility]. SW sent referrals to [facility] for fpc services as well as [facility] for infusion services via [employer]. SW to follow-up with service providers tomorrow to coordinate start of care. SW will continue to follow patient, communicate with GI team, and assist with discharge planning. RADHA Mead, HARBOUR MASTER Inpatient Dining Room Helper GI Service [phone] documented in this encounter Plan of Treatment Upcoming Encounters Date Type Department Care Team (Late st Contact Info) Description 07/15/2024 9:00 AM EST Hospital Encounter [facility] Interventional Radiology [address] [place] [id number] Herve Carrillo MD [address] [facility] [address] [place] [address] documented as of this encounter Procedures Procedure Name Priority Date/Time Associated Diagnosis Comments POC GLU MONITORING DEVICE Routine 07/31/2019 9:29 AM EST CBC Routine 07/31/2019 8:16 AM EST CYCLOSPORINE LEVEL Routine 07/31/2019 4: 15 AM EST PHOSPHORUS Add-On 07/31/2019 4:15 AM EST ALBUMIN Add-On 07/31/2019 4:15 AM EST BASIC METABOLIC PANEL Routine 07/31/2019 4:15 AM EST POC GLU MONITORING DEVICE Routine 07/31/2019 1:56 AM EST POC GLU MONITORING DEVICE Routine 07/30/2019 10:52 PM EST POC GLU MONITORING DEVICE Routine 07/30/2019 7:22 PM EST POC GLU MONITORING DEVICE Routine 07/30/2019 12:41 PM EST POC GLU MONITORING DEVICE Routine 07/30/2019 7:49 AM EST CBC Routine 07/30/2019 4:18 AM EST MAGNESIUM Routine 07/30/2019 4:18 AM EST POC GLU MONITORING DEVICE Routine 07/30/2019 2:16 AM EST CYTOMEGALOVIRUS DNA, QUANT, RT PCR Routine 07/30/2019 12:29 AM EST HEPATIC FUNCTION PANEL Routine 9 12:29 AM EST LACTIC ACID Routine 07/30/2019 12:29 AM EST RENAL FUNCTION PANEL W/EGFR Routine 07/30/2019 12:29 AM EST DIFFERENTIAL Routine 07/30/2019 12:29 AM EST CBC Routine 07/30/2019 12:29 AM EST documented in this encounter Results * (ABNORMAL) POC Glucose Monitoring Device (07/31/2019 9:29 AM EST) POC Glucose Monitoring Device 135(H) 70 - 100 mg/dL 07/31/2019 9:30 AM EST [facility] Blood specimen (specimen) 07/31/2019 9:29 AM EST 07/31/2019 9:30 AM EST us Loida Alcantar MD POINT OF CARE TEST ORDERABLES Fi nal Result [facility] [address] [facility] [place] [address], [facility] * (ABNORMAL) CBC (07/31/2019 8:16 AM EST) WBC 3.1(L) 3.8 - 10.8 10E3/uL 07/31/2019 8:43 AM EST [facility] RBC 2.82(L) 4.20 - 5.80 10E6/uL 07/31/2019 8:43 AM EST [facility] Hemoglobin 7.9(L) 13.2 - 17.1 g/dL 07/31/2019 8:43 AM EST [facility] Hematocrit 24.1(L) 38.5 - 50.0 % 07/31/2019 8:43 AM EST [facility] MCV 85.4 80.0 - 100.0 fL 07/31/2019 8:43 AM EST [facility] MCH 28.0 27.0 - 33.0 pg 07/31/2019 8:43 AM EST [facility] MCHC 32.8 32.0 - 36.0 g/dL 07/31/2019 8:43 AM [facility] RDW 14.4 11.0 - 15.0 % 07/31/2019 8:43 AM EST [facility] Platelets 238 140 - 400 10E3/uL 07/31/2019 8:43 AM [facility] MPV 7.2(L) 7.5 - 11.5 fL 07/31/2019 8:43 AM EST [facility] Whole blood specimen (specimen) 07/31/2019 8:16 AM EST 07/31/2019 8:32 AM EST us Goyo Ladd MD LAB BLOOD ORDERABLES F inal Result [facility] [address] * (ABNORMAL) Albumin (07/31/2019 4:15 AM EST) Albumin 2.9(L) 3.5 - 5.7 g/dL 07/31/2019 10:31 AM EST [facility] Plasma specimen (specimen) 07/31/2019 4:15 AM EST 07/31/2019 10:11 AM EST us Dana Randolph MD LAB BLOOD ORDERABLES Final R esult [facility] [address] * Phosphorus (07/31/2019 4:15 AM EST) Phosphorus 4.3 2.1 - 4.7 mg/dL 07/31/2019 10:31 AM EST [facility] Plasma specimen (specimen) 07/31/2019 4:15 AM EST 07/31/2019 10:11 AM EST us Dana Randolph MD LAB BLOOD ORDERABLES Final R esult [facility] [address] * (ABNORMAL) Basic metabolic panel (07/31/2019 4:15 AM EST) Sodium 144 133 - 146 mmol/L 07/31/2019 5:37 AM EST [facility] Potassium 4.0 3.5 - 5.3 mmol/L 07/31/2019 5:37 AM EST [facility] Chloride 104 98 - 110 mmol/L 07/31/2019 5:37 AM EST [facility] CO2 30 21 - 33 mmol/L 07/31/2019 5:37 AM EST [facility] Anion Gap 10 3 - 16 mmol/L 07/31/2019 5:37 AM EST [facility] BUN 25 7 - 25 mg/dL 07/31/2019 5:37 AM EST [facility] Creatinine 4.31(H) 0.60 - 1.30 mg/dL 07/31/2019 5:37 AM [facility] Glucose 111(H) 70 - 100 mg/dL 07/31/2019 5:37 AM EST [facility] Calcium 7.3(L) 8.6 - 10.3 mg/dL 07/31/2019 5:37 AM EST [facility] Osmolality, Calculated 303 278 - 305 mOsm/kg 07/31/2019 5:37 AM EST [facility] eGFR AA CKD-EPI 18 See note. 9 5:37 AM EST [facility] Comment: As of [...] equation to estimate glomerular filtration rate. ??Jennifer Licensed Psychiatric Technician Med. 2009:150(9):604-12 eGFR NONAA CKD-EPI 15 See note. 2018 5:37 AM EST [facility] Comment: As of 2015 the estimated GFR is calculated from serum creatinine using the Chronic Kidney Disease Epidemiology Collaboration (CKD-EPI) equation in patients 18 years and older. ??The reference range is >60 mL/min/1.73m2. ??eGFR values greater than 90 will be reported as >90mL/min/1.73m2. Reference: Neftali Castle Schmid CH, Zhang YL, Colten KEARNEY, , Quan MILLER, et. al. A new equation to estimate glomerular filtration rate. ??Jennifer Licensed Psychiatric Technician Med. 2009:150(9):604-12 Plasma specimen (specimen) 07/31/2019 4:15 AM EST 07/31/2019 5:02 AM EST us Dana Randolph MD LAB BLOOD ORDERABLES Final R esult [facility] [address] * (ABNORMAL) Cyclosporine level (07/31/2019 4:15 AM EST) Cyclosporine, Blood 64(L) 100 - 400 ng/mL 07/31/2019 1:42 PM EST [facility] Comment: Detection limit: ??30 ng/mL. ??Performed via chemiluminescent microparticle immunoassay on the [employer] i1000. Whole blood specimen (specimen) 07/31/2019 4:15 AM EST 07/31/2019 4:37 AM EST us Dana Randolph MD LAB BLOOD ORDERABLES Final R esult Performing Organization Address City/[facility]/ZIP Co de Phone Number [facility] [address] [facility]. [address] * (ABNORMAL) POC Glucose Monitoring Device (07/31/2019 1:56 AM EST) POC Glucose Monitoring Device 114(H) 70 - 100 mg/dL 07/31/2019 2:05 AM EST [facility] Blood specimen (specimen) 07/31/2019 1:56 AM EST 07/31/2019 2:05 AM EST us Loida Alcantar MD POINT OF CARE TEST ORDERABLES Fi nal Result Performing Organization Address [facility] Co de Phone Number [facility] [address] [facility]. [address] * (ABNORMAL) POC Glucose Monitoring Device (07/30/2019 10:52 PM EST) POC Glucose Monitoring Device 161(H) 70 - 100 mg/dL 07/30/2019 10:53 PM EST [facility] Blood specimen (specimen) 07/30/2019 10:52 PM EST 07/30/2019 10:53 PM EST us Loida Alcantar MD POINT OF CARE TEST ORDERABLES Fi nal Result Performing Organization Address [facility] Co de Phone Number [facility] [address] * (ABNORMAL) POC Glucose Monitoring Device (07/30/2019 7:22 PM EST) POC Glucose Monitoring Device 153(H) 70 - 100 mg/dL 07/30/2019 7:25 PM EST [facility] Blood specimen (specimen) 07/30/2019 7:22 PM EST 07/30/2019 7:24 PM EST us Loida Alcantar MD POINT OF CARE TEST ORDERABLES Fi nal Result Performing Organization Address City/[facility]/ZIP Co de Phone Number [facility] [address] [facility]. [address] * (ABNORMAL) POC Glucose Monitoring Device (07/30/2019 12:41 PM EST) POC Glucose Monitoring Device 123(H) 70 - 100 mg/dL 07/30/2019 12:44 PM EST [facility] Blood specimen (specimen) 07/30/2019 12:41 PM EST 07/30/2019 12:43 PM EST Loida Alcantar MD POINT OF CARE TEST ORDERABLES Fi nal Result Performing Organization Address [facility] Co de Phone Number [facility] [address] [place] [address]. [address] * (ABNORMAL) POC Glucose Monitoring Device (07/30/2019 7:49 AM EST) POC Glucose Monitoring Device 141(H) 70 - 100 mg/dL 07/30/2019 7:49 AM EST [facility] Blood specimen (specimen) 07/30/2019 7:49 AM EST 07/30/2019 7:49 AM EST us Loida Alcantar MD POINT OF CARE TEST ORDERABLES Fi nal Result Performing Organization Address [facility] Co de Phone Number [facility] [address] [place] [address]. [address] * Magnesium, AM (07/30/2019 4:18 AM EST) Magnesium 1.8 1.5 - 2.5 mg/dL 07/30/2019 5:33 AM EST [facility] Plasma specimen (specimen) 07/30/2019 4:18 AM EST 07/30/2019 5:00 AM EST us Dana Randolph MD LAB BLOOD ORDERABLES Final R esult Performing Organization Address [facility] Co de Phone Number [facility] [address] [place] [address]. [address] * (ABNORMAL) CBC, AM (07/30/2019 4:18 AM EST) WBC 3.7(L) 3.8 - 10.8 10E3/uL 07/30/2019 5:08 AM EST [facility] RBC 2.93(L) 4.20 - 5.80 10E6/uL 07/30/2019 5:08 AM [facility] Hemoglobin 8.2(L) 13.2 - 17.1 g/dL 07/30/2019 5:08 AM [facility] Hematocrit 24.8(L) 38.5 - 50.0 % 07/30/2019 5:08 AM [facility] MCV 84.6 80.0 - 100.0 fL 07/30/2019 5:08 AM [facility] MCH 27.8 27.0 - 33.0 pg 07/30/2019 5:08 AM [facility] MCHC 32.9 32.0 - 36.0 g/dL 07/30/2019 5:08 AM [facility] RDW 14.2 11.0 - 15.0 % 07/30/2019 5:08 AM [facility] Platelets 271 140 - 400 10E3/uL 07/30/2019 5:08 AM [facility] MPV 7.2(L) 7.5 - 11.5 fL 07/30/2019 5:08 AM [facility] Whole blood specimen (specimen) 07/30/2019 4:18 AM EST 07/30/2019 5:00 AM EST Dana Randolph MD LAB BLOOD ORDERABLES Final R esult Performing Organization Address City/State/[facility] Co de Phone Number [facility] [address] * (ABNORMAL) POC Glucose Monitoring Device (07/30/2019 2:16 AM EST) Pathologist [facility] POC Glucose Monitoring Device 172(H) 70 - 100 mg/dL 07/30/2019 2:17 AM EST [facility] Blood specimen (specimen) 07/30/2019 2:16 AM EST 07/30/2019 2:17 AM EST Loida Alcantar MD POINT OF CARE TEST ORDERABLES Fi nal Result [facility] [address] [facility] [address], [facility] * Cytomegalovirus DNA, Quant, RT PCR (07/30/2019 12:29 AM EST) CMV DNA Qnt 492 IU/mL 08/01/2019 6:41 AM EST [facility] Comment:Test methodology for CMV quantification is an FDA-approved nucleic acid amplification assay. The Lower Limit of Quantitation (LLOQ) is 137 IU/mL; the linear range is 137- 9,100,000 IU/mL. The limit of Detection is (LoD) is 91 IU/mL. Log10 CMV Qn DNA PI 2.69 log 10 IU/mL 08/01/2019 6:41 AM EST [facility] Comment:CMV DNA has been det ected. Plasma specimen (specimen) 07/30/2019 12:29 AM EST 07/30/2019 1:52 AM EST Dana Randolph MD LAB BLOOD ORDERABLES Final R esult Performing Organization Address City/[facility]/ZIP Co de Phone Number [facility] [address] [facility]. [address] * Differential (07/30/2019 12:29 AM EST) Pathologist [facility] Neutrophils Relative 62.4 40.0 - 80.0 % 07/30/2019 12:43 AM EST [facility] Lymphocytes Relative 25.1 15.0 - 45.0 % 07/30/2019 12:43 AM EST [facility] Monocytes Relative 8.8 0.0 - 12.0 % 07/30/2019 12:43 AM EST [facility] Eosinophils Relative 3.3 0.0 - 8.0 % 07/30/2019 12:43 AM EST [facility] Basophils Relative 0.4 0.0 - 1.0 % 07/30/2019 12:43 AM EST [facility] nRBC 0 0 - 0 /100 WBC 07/30/2019 12:43 AM EST [facility] Neutrophils Absolute 2,683 1,500 - 7,800 /uL 07/30/2019 12:43 AM EST [facility] Lymphocytes Absolute 1,079 850 - 3,900 /uL 07/30/2019 12:43 AM EST [facility] Monocytes Absolute 378 200 - 950 /uL 07/30/2019 12:43 AM EST [facility] Eosinophils Absolute 142 15 - 500 /uL 07/30/2019 12:43 AM EST [facility] Basophils Absolute 17 0 - 200 /uL 07/30/2019 12:43 AM EST [facility] Whole blood specimen (specimen) 07/30/2019 12:29 AM EST 07/30/2019 12:35 AM EST us Dana Randolph MD LAB BLOOD ORDERABLES Final R esult [facility] [address] [id number], [facility] * (ABNORMAL) CBC (07/30/2019 12:29 AM EST) WBC 4.3 3.8 - 10.8 10E3/uL 07/30/2019 12:43 AM [facility] RBC 3.25(L) 4.20 - 5.80 10E6/uL 07/30/2019 12:43 AM [facility] Hemoglobin 9.3(L) 13.2 - 17.1 g/dL 07/30/2019 12:43 AM [facility] Hematocrit 27.5(L) 38.5 - 50.0 % 07/30/2019 12:43 AM [facility] MCV 84.6 80.0 - 100.0 fL 07/30/2019 12:43 AM [facility] MCH 28.6 27.0 - 33.0 pg 07/30/2019 12:43 AM [facility] MCHC 33.8 32.0 - 36.0 g/dL 07/30/2019 12:43 AM [facility] RDW 14.3 11.0 - 15.0 % 07/30/2019 12:43 AM [facility] Platelets 240 140 - 400 10E3/uL 07/30/2019 12:43 AM [facility] Comment:Specimen checked for clots. None detected. MPV 7.0(L) 7.5 - 11.5 fL 07/30/2019 12:43 AM EST [facility] Whole blood specimen (specimen) 07/30/2019 12:29 AM EST 07/30/2019 12:35 AM EST us Dana Randolph MD LAB BLOOD ORDERABLES Final R esult [facility] [address] * Lactic Acid (07/30/2019 12:29 AM EST) Lactate 1.2 0.5 - 2.2 mmol/L 07/30/2019 1:59 AM EST [facility] Plasma specimen (specimen) 07/30/2019 12:29 AM EST 07/30/2019 12:35 AM EST us Dana Randolph MD LAB BLOOD ORDERABLES Final R esult Performing Organization Address [facility] Co de Phone Number [facility] [address] * (ABNORMAL) Hepatic Function Panel (07/30/2019 12:29 AM EST) Total Bilirubin 0.2 0.0 - 1.5 mg/dL 07/30/2019 1:21 AM EST [facility] Bilirubin, Direct 0.11 0.00 - 0.40 mg/dL 07/30/2019 1:21 AM EST [facility] Comment:HEMOLYSIS EVIDENT. R ESULTS MAY BE INFLUENCED. AST 14 13 - 39 U/L 07/30/2019 1:21 AM EST [facility] ALT 4(L) 7 - 52 U/L 07/30/2019 1:21 AM EST [facility] Alkaline Phosphatase 93 36 - 125 U/L 07/30/2019 1:21 AM EST [facility] Total Protein 5.6(L) 6.4 - 8.9 g/dL 07/30/2019 1:21 AM EST [facility] Albumin 3.2(L) 3.5 - 5.7 g/dL 07/30/2019 1:21 AM EST [facility] Bilirubin, Indirect 0.09 0.00 - 1.10 mg/dL 07/30/2019 1:21 AM EST [facility] Plasma specimen (specimen) 07/30/2019 12:29 AM EST 07/30/2019 12:35 AM EST us Dana Randolph MD LAB BLOOD ORDERABLES Final R esult [facility] [address] [place] [address], [facility] * (ABNORMAL) Renal Function Panel w/EGFR (07/30/2019 12:29 AM EST) Sodium 142 133 - 146 mmol/L 07/30/2019 1:21 AM EST [facility] Potassium 4.1 3.5 - 5.3 mmol/L 07/30/2019 1:21 AM [facility] Comment:Hemolysis Present: R esults may be influenced artificially. Recommend recollection as clinically indicated. Chloride 102 98 - 110 mmol/L 07/30/2019 1:21 AM EST [facility] CO2 26 21 - 33 mmol/L 07/30/2019 1:21 AM [facility] Anion Gap 14 3 - 16 mmol/L 07/30/2019 1:21 AM [facility] BUN 17 7 - 25 mg/dL 07/30/2019 1:21 AM [facility] Creatinine 3.52(H) 0.60 - 1.30 mg/dL 07/30/2019 1:21 AM [facility] Glucose 204(H) 70 - 100 mg/dL 07/30/2019 1:21 AM [facility] Calcium 7.3(L) 8.6 - 10.3 mg/dL 07/30/2019 1:21 AM [facility] Phosphorus 3.4 2.1 - 4.7 mg/dL 07/30/2019 1:21 AM [facility] Albumin 3.2(L) 3.5 - 5.7 g/dL 07/30/2019 1:21 AM EST [facility] Osmolality, Calculated 301 278 - 305 mOsm/kg 07/30/2019 1:21 AM EST [facility] eGFR AA CKD-EPI 23 See note. 9 1:21 AM EST [facility] Comment: As of 2015 the [...] equation to estimate glomerular filtration rate. ??Jennifer Licensed Psychiatric Technician Med. 2009:150(9):604-12 eGFR NONAA CKD-EPI 20 See note. 2018 1:21 AM EST [facility] Comment: As of [...] equation to estimate glomerular filtration rate. ??Jennifer Licensed Psychiatric Technician Med. 2009:150(9):604-12 Plasma specimen (specimen) 07/30/2019 12:29 AM EST 07/30/2019 12:35 AM EST us Dana Randolph MD LAB BLOOD ORDERABLES Final R esult [facility] [address] [id number], [facility] documented in this encounter Visit Diagnoses Diagnosis Esophagitis, CMV (CMS-HCC) Unspecified esophagitis Liver transplant recipient (CMS-HCC) Immunosuppression (CMS-HCC) ESRD (end stage renal disease) on dialysis (CMS-HCC) End stage renal disease Esophagitis, CMV (CMS-HCC) Unspecified esophagitis documented in this encounter Administered Medications Inactive Administered Medications - up to 3 most recent administrations Medication Order MAR Action Action Date Dose Rate Site aspirin chewable tablet 81 mg 81 mg, Oral, Daily with breakfast, First dose on Mon07/30/19 at 0800 Given 07/31/2019 12:35 PM EST 81 mg Given 07/30/2019 9:55 AM EST 81 mg carBAMazepine (TEGRETOL) tablet 200 mg 200 mg, Oral, At Bedtime (2100), First dose on Mon07/30/19 at 0200 Given 07/30/2019 9:17 PM EST 200 mg Self-Administered 07/30/2019 2:36 AM EST 200 mg carvedilol (COREG) tablet 50 mg 50 mg, Oral, 2 times daily with meals, First dose on Mon07/30/19 at 0800 Given 07/31/2019 12:35 PM EST 50 mg Given 07/30/2019 6:17 PM EST 50 mg Given 07/30/2019 9:55 AM EST 50 mg ceFAZolin (ANCEF) 2 g in sodium chloride 0.9 % 100 mL IVPB 2 g, Intravenous, at 200 mL/hr, User specified (Once per day on Mon), First dose on Mon07/31/19 at 1200, For 1 dose, To be given after dialysis., Indication? Prophylaxis-Medical, Site of diagnosed infections (select all that apply): Other New Bag 07/31/2019 1:11 PM EST 2 g 200 mL/hr ceFAZolin (ANCEF) 3 g in sodium chloride 0.9 % 100 mL IVPB 3 g, Intravenous, Administer over 30 Minutes, User specified (Once per day on Mon), First dose on Mon08/02/19 at 1200, For 1 dose, To be given after dialysis., Indication? Prophylaxis-Medical, Site of diagnosed infections (select all that apply): Other cloNIDine HCl (CATAPRES) tablet 0.1 mg 0.1 mg, Oral, 2 times daily, First dose on Mon07/30/19 at 0200 Given 07/31/2019 12:34 PM EST 0.1 mg Given 07/30/2019 9:18 PM EST 0.1 mg Given 07/30/2019 9:55 AM EST 0.1 mg cycloSPORINE modified (NEORAL/GENGRAF) capsule 50 mg 50 mg, Oral, 2 times daily, First dose on Mon07/30/19 at 0200, LEVEL 2 HAZARDOUS MEDICATION Given 07/31/2019 12:34 PM EST 50 mg Given 07/30/2019 9:17 PM EST 50 mg Given 07/30/2019 10:48 AM EST 50 mg dextrose 10 % (D10W) in water infusion 12.5 g, Intravenous, Every 15 min PRN, for glucose < 70 and alert but can not be corrected, orally or via feeding tube, Starting on Mon07/30/19 at 0204, Recheck blood sugar in 15 minutes and repeat treatment if glucose still < 70. FOR SMART PUMP: Set volume to be infused to 125 mL = 12.5 grams OR 250 mL = 25 grams dextrose 10 % (D10W) in water infusion 25 g, Intravenous, Every 15 min PRN, for glucose < 70 and not alert, Starting on Mon07/30/19 at 0204, Recheck blood sugar in 15 minutes and repeat treatment if glucose still < 70. FOR SMART PUMP: Set volume to be infused to 125 mL = 12.5 grams OR 250 mL = 25 grams entecavir (BARACLUDE) tablet 0.5 mg 0.5 mg, Oral, Every 7 days, First dose on Mon07/30/19 at 0200, ADMINISTER ON EMPTY STOMACH (2 HOURS BEFORE OR AFTER MEALS). LEVEL 2 HAZARDOUS MEDICATION Given 07/30/2019 5:54 AM EST 0.5 mg ergocalciferol capsule 50,000 Units 50,000 Units, Oral, Weekly, First dose on Mon07/30/19 at 0900, monday Given 07/30/2019 9:55 AM EST 50,000 Unit s famotidine (PEPCID) tablet 20 mg 20 mg, Oral, Daily, First dose on Mon07/30/19 at 0900 Given 07/31/2019 12:33 PM EST 20 mg Given 07/30/2019 9:55 AM EST 20 mg For Catheter Lock: gentamicin 0.32 mg/mL and citrate 4% antibiotic IV lock 5 mL, Intracatheter, As needed, to lock HD catheter, Starting on Mon07/31/19 at 1100, Instill 2-5 mL based on patient catheter size to prevent occlusion. GENTAMICIN 0.32 mg/mL IN CITRATE 4%; PROTECT FROM LIGHT Given 07/31/2019 10:52 AM EST 5 mLs gabapentin (NEURONTIN) capsule 400 mg 400 mg, Oral, Daily, First dose on Mon07/30/19 at 0900 Given 07/31/2019 12:34 PM EST 400 mg Given 07/30/2019 9:55 AM EST 400 mg glucose chewable tablet 12 g 12 g, Oral, Every 15 min PRN, Low blood sugar, for blood glucose less than 70mg/dL. May also give 4 oz fruit juice, 4 oz regular soda, or 8 oz nonfat milk.?See Admin instructions for details., Starting on Mon07/30/19 at 0204, If glucose is between 50 -70, give 15 grams of fast acting carbohydrate. (Glucose tablets or gel, or 4 oz. fruit juice or regular soda.) Recheck glucose in 15 minutes and if glucose still < 70, repeat treatment. If glucose below 50, give 30 grams fast acting carbohydrate. Repeat fingerstick in 15 minutes, and if still < 70 repeat treatment. If glucose < 70 and alert but cannot be corrected, orally or via feeding tube, give ?? amp (25 ml) D50W. Recheck blood sugar in 15 minutes and repeat treatment if glucose still not < 70. If not alert and glucose < 70 give 1 amp (50 ml) D50W. Recheck glucose in 15 minutes and repeat treatment if glucose still < 70. DO NOT ADMINISTER VIA FEEDING TUBE insulin lispro (humaLOG) injection 0-5 Units 0-5 Units, Subcutaneous, 3 times daily before meals, First dose on Mon07/30/19 at 0730, Low Dose HumaLOG insulin correction for patients [...] meal at bedside. insulin lispro (humaLOG) injection 5 Units 5 Units, Subcutaneous, 3 times daily before meals, First dose on Mon07/30/19 at 0730, Onset of action is rapid. Give dose 5-10 minutes before meal. Have meal at bedside. Given 07/30/2019 10:55 PM EST 5 Units Abdominal Tissue Given 07/30/2019 1:00 PM EST 5 Units Ab dominal Tissue Given 07/30/2019 8:14 AM EST 5 Units Ab dominal Tissue insulin NPH (HumuLIN N) injection 10 Units 10 Units, Subcutaneous, Daily, First dose on Mon07/30/19 at 0900, Please administer 10U in morning Please administer 5U in evening HIGH ALERT MEDICATION Given 07/31/2019 10:10 AM EST 10 Units Abdominal Tissue Given 07/30/2019 8:17 AM EST 10 Units Ab dominal Tissue insulin NPH (HumuLIN N) injection 5 Units 5 Units, Subcutaneous, At Bedtime (2099), First dose (after last reorder) on Mon07/30/19 at 2100, Please administer 10U in morning Please administer 5U in evening HIGH ALERT MEDICATION Given 07/30/2019 9:22 PM EST 5 Units Abdom inal Tissue mycophenolate (CELLCEPT) capsule 250 mg 250 mg, Oral, 2 times daily, First dose (after last reorder) on Mon07/30/19 at 1330, LEVEL 2 HAZARDOUS MEDICATION Given 07/31/2019 12:34 PM EST 250 mg Given 07/30/2019 9:17 PM EST 250 mg Given 07/30/2019 1:00 PM EST 250 mg NIFEdipine (PROCARDIA-XL) 24 hr tablet 90 mg 90 mg, Oral, 2 times daily, First dose on Mon07/30/19 at 0200, DO NOT CRUSH Given 07/31/2019 12:34 PM EST 90 mg Given 07/30/2019 9:17 PM EST 90 mg Given 07/30/2019 9:59 AM EST 90 mg oxyCODONE (ROXICODONE) immediate release tablet 5 mg 5 mg, Oral, Once, On Mon07/30/19 at 0630, For 1 dose Given 07/30/2019 6:38 AM EST 5 mg sodium chloride flush 10 mL 10 mL, Intravenous, Every Shift, First dose on Mon07/30/19 at 0030 Given 07/31/2019 4:58 AM EST 10 mLs Given 07/30/2019 9:20 PM EST 10 mLs Given 07/30/2019 4:07 PM EST 10 mLs terazosin (HYTRIN) capsule 10 mg 10 mg, Oral, At Bedtime (2100), First dose on Mon07/30/19 at 0200, Therapeutic Interchange: doxazosin (CARDURA) 8 mg daily = terazosin (HYTRIN) 10 mg daily Given 07/30/2019 9:17 PM EST 10 mg Self-Administered 07/30/2019 2:43 AM EST 10 mg valGANciclovir (VALCYTE) tablet 450 mg 450 mg, Oral, Every Monday, Monday, Monday (Once per day on Mon), First dose on Mon07/31/19 at 1700, PLEASE GIVE AFTER DIALYSIS LEVEL 2 HAZARDOUS MEDICATION documented in this encounter Active and Recently Administered Medications Times are shown in EST. Scheduled Medication Order 07/29/2019 07/30/2019 07/31/2019 aspirin chewable tablet 81 mg 81 mg, Oral, Daily with breakfast, First dose on Mon07/30/19 at 0800 0955 (Given - Provider: Analia Patel) 1235 (Given - Provider: Erika Pitts, JANA) carBAMazepine (TEGRETOL) tablet 200 mg 200 mg, Oral, At Bedtime (2100), First dose on Mon07/30/19 at 0200 0236 (Self-Administered - Provider: Urmila Pham RN - Comment: pt had at home)2117 (Given - Provider: Urmila Pham RN) carvedilol (COREG) tablet 50 mg 50 mg, Oral, 2 times daily with meals, First dose on Mon07/30/19 at 0800 0955 (Given - Provider: Analia Patel)1817 (Given - Provider: Bridgett Gibbons RN) 1235 (Given - Provider: Erika Pitts, JANA) ceFAZolin (ANCEF) 2 g in sodium chloride 0.9 % 100 mL IVPB (COMPLETED) 2 g, Intravenous, at 200 mL/hr, User specified (Once per day on Mon), First dose on Mon07/31/19 at 1200, For 1 dose, To be given after dialysis., Indication? Prophylaxis-Medical, Site of diagnosed infections (select all that apply): Other 1311 (New Bag - Provider: Erika Pitts, JANA) ceFAZolin (ANCEF) 3 g in sodium chloride 0.9 % 100 mL IVPB 3 g, Intravenous, Administer over 30 Minutes, User specified (Once per day on Mon), First dose on Mon08/02/19 at 1200, For 1 dose, To be given after dialysis., Indication? Prophylaxis-Medical, Site of diagnosed infections (select all that apply): Other cloNIDine HCl (CATAPRES) tablet 0.1 mg 0.1 mg, Oral, 2 times daily, First dose on Mon07/30/19 at 0200 0239 (Self-Administered - Provider: Urmila Pham RN - Comment: pt had at home)0955 (Given - Provider: Analia Patel)2117 (Given - Provider: Urmila Pham RN) 1234 (Given - Provider: Erika Pitts, JANA) cycloSPORINE modified (NEORAL/GENGRAF) capsule 50 mg 50 mg, Oral, 2 times daily, First dose on Mon07/30/19 at 0200, LEVEL 2 HAZARDOUS MEDICATION 0240 (Self-Administered - Provider: Urmila Pham RN - Comment: pt had at home)1048 (Given - Provider: Analia Patel)2116 (Given - Provider: Urmila Pham RN) 1234 (Given - Provider: Erika Pitts RN) entecavir (BARACLUDE) tablet 0.5 mg 0.5 mg, Oral, Every 7 days, First dose on Mon07/30/19 at 0200, ADMINISTER ON EMPTY STOMACH (2 HOURS BEFORE OR AFTER MEALS). LEVEL 2 HAZARDOUS MEDICATION 0554 (Given - Provider: Urmila Pham RN) ergocalciferol capsule 50,000 Units 50,000 Units, Oral, Weekly, First dose on Mon07/30/19 at 0900, monday 09 (Given - Provider: Analia Patel) famotidine (PEPCID) tablet 20 mg 20 mg, Oral, Daily, First dose on Mon07/30/19 at 0900 0955 (Given - Provider: Analia Patel) 1233 (Given - Provider: Erika Pitts, JANA) gabapentin (NEURONTIN) capsule 400 mg 400 mg, Oral, Daily, First dose on Mon07/30/19 at 0900 0955 (Given - Provider: Analia Patel) 1234 (Given - Provider: Erika Pitts, JANA) insulin lispro (humaLOG) injection 0-5 Units 0-5 Units, Subcutaneous, 3 times daily before meals, First dose on Mon07/30/19 at 0730, Low Dose HumaLOG insulin correction for patients [...] minutes before meal. Have meal at bedside. 0750 (Not Given - Provider: Erika Pitts RN - Reason: Order parameters not met)1317 (Not Given - Provider: Erika Pitts RN - Reason: Order parameters not met)2256 (Not Given - Provider: Urmila Pham RN - Reason: Other) 0936 (Not Given - Provider: Aubrie Martinez RN - Reason: Order parameters not met)1130 (Due) insulin lispro (humaLOG) injection 5 Units 5 Units, Subcutaneous, 3 times daily before meals, First dose on Mon07/30/19 at 0730, Onset of action is rapid. Give dose 5-10 minutes before meal. Have meal at bedside. 0814 (Given - Provider: Analia Patel)1300 (Given - Provider: Analia Patel)2255 (Given - Provider: Urmila Pham, JANA) 0907 (Hold - Provider: Zeny Hernandez RN - Reason: Other - Comment: pt not eating yet)1130 (Due) insulin NPH (HumuLIN N) injection 10 Units 10 Units, Subcutaneous, Daily, First dose on Mon07/30/19 at 0900, Please administer 10U in morning Please administer 5U in evening HIGH ALERT MEDICATION 0817 (Given - Provider: Analia Patel) 1010 (Given - Provider: Zeny Hernandez, JANA) insulin NPH (HumuLIN N) injection 5 Units 5 Units, Subcutaneous, At Bedtime (2100), First dose (after last reorder) on Mon07/30/19 at 2100, Please administer 10U in morning Please administer 5U in evening HIGH ALERT MEDICATION 2122 (Given - Provider: Urmila Pham, JANA) mycophenolate (CELLCEPT) capsule 250 mg 250 mg, Oral, 2 times daily, First dose (after last reorder) on Mon07/30/19 at 1330, LEVEL 2 HAZARDOUS MEDICATION 1300 (Given - Provider: Analia Patel)2116 (Given - Provider: Urmila Pham, JANA) 123 (Given - Provider: Erika Pitts, JANA) NIFEdipine (PROCARDIA-XL) 24 hr tablet 90 mg 90 mg, Oral, 2 times daily, First dose on Mon07/30/19 at 0200, DO NOT CRUSH 0242 (Self-Administered - Provider: Urmila Pham RN - Comment: pt had at home)0959 (Given - Provider: Analia Patel)2116 (Given - Provider: Urmila Pham RN) 123 (Given - Provider: Erika Pitts, JANA) oxyCODONE (ROXICODONE) immediate release tablet 5 mg (COMPLETED) 5 mg, Oral, Once, On Mon07/30/19 at 0630, For 1 dose 0638 (Given - Provider: Urmila Pham RN) sodium chloride flush 10 mL(Linked Group 1) 10 mL, Intravenous, Every Shift, First dose on Mon07/30/19 at 0030 0147 (Given - Provider: Urmila Pham RN)0556 (Given - Provider: Urmila Pham, JANA)1607 (Given - Provider: Erika Pitts, JANA)2120 (Given - Provider: Urmila Pham RN) 0458 (Given - Provider: Urmila Pham RN)1300 (Due) terazosin (HYTRIN) capsule 10 mg 10 mg, Oral, At Bedtime (2100), First dose on Mon07/30/19 at 0200, Therapeutic Interchange: doxazosin (CARDURA) 8 mg daily = terazosin (HYTRIN) 10 mg daily 0243 (Self-Administered - Provider: Urmila Pham RN - Comment: pt had at home)2116 (Given - Provider: Urmila Pham RN) valGANciclovir (VALCYTE) tablet 450 mg 450 mg, Oral, Every Monday, Monday, Monday (Once per day on Mon), First dose on Mon07/31/19 at 1700, PLEASE GIVE AFTER DIALYSIS LEVEL 2 HAZARDOUS MEDICATION PRN Medication Order 07/29/2019 07/30/2019 07/31/2019 dextrose 10 % (D10W) in water infusion(Linked Group 2) 12.5 g, Intravenous, Every 15 min PRN, for glucose < 70 and alert but can not be corrected, orally or via feeding tube, Starting on Mon07/30/19 at 0204, Recheck blood sugar in 15 minutes and repeat treatment if glucose still < 70. FOR SMART PUMP: Set volume to be infused to 125 mL = 12.5 grams OR 250 mL = 25 grams dextrose 10 % (D10W) in water infusion(Linked Group 2) 25 g, Intravenous, Every 15 min PRN, for glucose < 70 and not alert, Starting on Mon07/30/19 at 0204, Recheck blood sugar in 15 minutes and repeat treatment if glucose still < 70. FOR SMART PUMP: Set volume to be infused to 125 mL = 12.5 grams OR 250 mL = 25 grams For Catheter Lock: gentamicin 0.32 mg/mL and citrate 4% antibiotic IV lock 5 mL, Intracatheter, As needed, to lock HD catheter, Starting on Mon07/31/19 at 1100, Instill 2-5 mL based on patient catheter size to prevent occlusion. GENTAMICIN 0.32 mg/mL IN CITRATE 4%; PROTECT FROM LIGHT 0930 (Due)1052 (Give n - Provider: Zeny Hernandez RN) glucose chewable tablet 12 g 12 g, Oral, Every 15 min PRN, Low blood sugar, for blood glucose less than 70mg/dL. May also give 4 oz fruit juice, 4 oz regular soda, or 8 oz nonfat milk.?See Admin instructions for details., Starting on Mon07/30/19 at 0204, If glucose is between 50 -70, give 15 grams of fast acting carbohydrate. (Glucose tablets or gel, or 4 oz. fruit juice or regular soda.) Recheck glucose in 15 minutes and if glucose still < 70, repeat treatment. If glucose below 50, give 30 grams fast acting carbohydrate. Repeat fingerstick in 15 minutes, and if still < 70 repeat treatment. If glucose < 70 and alert but cannot be corrected, orally or via feeding tube, give ?? amp (25 ml) D50W. Recheck blood sugar in 15 minutes and repeat treatment if glucose still not < 70. If not alert and glucose < 70 give 1 amp (50 ml) D50W. Recheck glucose in 15 minutes and repeat treatment if glucose still < 70. DO NOT ADMINISTER VIA FEEDING TUBE polyethylene glycol (MIRALAX) packet 17 g 17 g, Oral, 2 times daily PRN, Constipation, Starting on Mon07/30/19 at 0155 Linked Groups Order Group 1: Place saline lock (CANCELED) STAT, Once, On 07/29/19 at 2353, For 1 occurrence And sodium chloride flush 10 mLJump to med 10 mL, Intravenous, Every Shift, First dose on Mon07/30/19 at 0030 Group 2: dextrose 10 % (D10W) in water infusionJump to med 12.5 g, Intravenous, Every 15 min PRN, for glucose < 70 and alert but can not be corrected, orally or via feeding tube, Starting on Mon07/30/19 at 0204, Recheck blood sugar in 15 minutes and repeat treatment if glucose still < 70. FOR SMART PUMP: Set volume to be infused to 125 mL = 12.5 grams OR 250 mL = 25 grams Or dextrose 10 % (D10W) in water infusionJump to med 25 g, Intravenous, Every 15 min PRN, for glucose < 70 and not alert, Starting on Mon07/30/19 at 0204, Recheck blood sugar in 15 minutes and repeat treatment if glucose still < 70. FOR SMART PUMP: Set volume to be infused to 125 mL = 12.5 grams OR 250 mL = 25 grams documented in this encounter Additional Health Concerns Assessment Noted Time PHQ-9 Depression Total Score: 0 12/06/19 18 3:00 PM EDT documented as of this encounter Care Teams Director Industrial Relationship Specialty Start Date End Date Edgar Fournier MD [address] [place] [address] [place] [address] PCP - General 08/18/17 06/23/21 Maile Valles, JANA Txp Post Coordinator Transplant Hepatology 11/07/17 Jack Ordoñez MD [facility] [place] [phone] Consulting Physician Transplant Hepatology 01/05/18 documented as of this encounter
--- OUTSIDE RECORDS SUMMARY | 2024-07-12 12:45 | XMS_ITS | Encounter Summary ---
Author Organization [facility] Address [facility] [place] [address] Care Team Providers Care Compliance Review Officer Name Role Phone Edgar Fournier MD Primary Care Provider [phone] Maile Olmedo RN Unavailable Unavail able Jack Ordoñez MD Unavailable [phone] Source Comments This information has been [...] release of HIV test results or diagnoses. [id number] Reason for Visit * Reason Comments Medication Refill Encounter Details Date Type Department Care Team (Late st Contact Info) Description 09/17/2019 Refill [facility] Transplant at Outpatient [facility] [address] [place] [phone] Anne Whitt MA Social History Tobacco Use [...] of this encounter Progress Notes * Maile Olmedo RN - 09/18/2019 4:25 PM ESTAddended by: MAILE OLMEDO on: 09/18/2019 04:25 PM Modules accepted: Orders documented in this encounter Miscellaneous Notes * Telephone Encounter - Judi Khan RPh - 09/19/2019 9:25 AM EST Called patient to discuss sifuentes of cyclosporine modified (Gengraf) through [facility], $65.58 for a 1-month supply. Patient states this is less expensive than his local pharmacy, but still unaffordable long-term. Referred to [facility] for further eligibility screening and completion of application. See Elmira Hussein's documentation for further updates. Patient has supplyof older medication to use currently. * Telephone Encounter - Maile Olmedo RN - 09/18/2019 4:12 PM EST Will send script to [facility] to see if there is any cost assistance with this prescription. In regards to gastric sleeve surgery, per chart review [facility] will contact patient to schedule once all records are received by [facility]. All can be discussed further at patient's follow-up appointment tomorrow, 09/19. * Telephone Encounter - Anne Whitt MA - 09/17/2019 1:07 PM EST Aiden is asking if there might be a patient assistance program to help pay for the CSA, said it is rather expensive. Patient asking about weight loss surgery also. Said he was going outside but they have sent all records to . He is asking that someone call him about this. documented in this encounter Plan of Treatment Upcoming Encounters Date Type Department Care Team (Late st Contact Info) Description 07/15/2024 9:00 AM EST Hospital Encounter [facility] Interventional Radiology [address] [place] [phone] Herve Carrillo MD [address] [facility] [address] [place] [phone] documented as of this encounter Visit Diagnoses Not on filedocumented in this encounter Additional Health Concerns Assessment Noted Time PHQ-9 Depression Total Score: 0 12/06/19 18 3:00 PM EDT documented as of this encounter Care Teams Compliance Review Officer Relationship Specialty Start Date End Date Edgar Fournier MD [address] [place] [address] [place] [address] PCP - General 08/18/17 06/23/21 Maile Olmedo, RN Txp Post Coordinator Transplant Hepatology 11/07/17 Jack Ordoñez MD [address] [place] [phone] Consulting Physician Transplant Hepatology 01/05/18 documented as of this encounter
--- OUTSIDE RECORDS SUMMARY | 2024-07-12 12:45 | XMS_ITS | Encounter Summary ---
Author Organization [facility] Address [facility] [place] [address] Care Team Providers Care Flow Machine Operator Name Role Phone Edgar Fournier MD Primary Care Provider [phone] Maile Valles RN Unavailable Unavail able Jack Ordoñez MD Unavailable [phone] Source Comments This information has been [...] release of HIV test results or diagnoses. [id number] Reason for Visit * Reason Comments Advice Only Encounter Details Date Type Department Care Team (Late st Contact Info) Description 08/01/2019 Telephone [facility] Liver Transplant at Outpatient [address] [phone] Maile Valles, pomology teacher Only Social History Tobacco Use Types Packs/Day [...] Telephone Encounter - Anne Whitt MA - 08/01/2019 2:45 PM EST Contacted patient to pass info that his back pain wouldn't be related to the IV antibiotics. Patient stated that he used a heating pad and pain has gone away. * Telephone Encounter - Maile Valles RN - 08/01/2019 11:50 AM EST Reviewed with Dr. Johnson and Dr. Ordoñez. No relation between IV antibiotics and back pain. Patient should follow up with PCP. Txherlinda MA to notify patient. * Telephone Encounter - Maile Valles RN - 08/01/2019 9:51 AM EST Received VM message from patient. States that he received an IV antibiotic before being discharged from the hospital yesterday and today woke with severe back pain. Reporting that he cannot lay on his back. Will review with Txp ID and Txp Provider. documented in this encounter Plan of Treatment Upcoming Encounters Date Type Department Care Team (Late st Contact Info) Description 07/15/2024 9:00 AM EST Hospital Encounter [facility] Interventional Radiology [address] [place] [phone] Herve Carrillo MD [address] [facility] [address] Surgery [place] [phone] documented as of this encounter Visit Diagnoses Not on filedocumented in this encounter Additional Health Concerns Assessment Noted Time PHQ-9 Depression Total Score: 0 12/06/19 18 3:00 PM EDT documented as of this encounter Care Teams Flow Machine Operator Relationship Specialty Start Date End Date Edgar Fournier MD [address] [address] PCP - General 08/18/17 06/23/21 Maile Valles, RN Txp Post Coordinator Transplant Hepatology 11/07/17 Jack Ordoñez MD [address] [place] [phone] Consulting Physician Transplant Hepatology 01/05/18 documented as of this encounter
--- OUTSIDE RECORDS SUMMARY | 2024-07-12 12:45 | XMS_ITS | Encounter Summary ---
Author Organization [facility] Address [address] [place] [address] Care Team Providers Care Process Pumper Name Role Phone Edgar Fournier MD Primary Care Provider [phone] Maile Valles RN Unavailable Unavail able Jack Ordoñez MD Unavailable [phone] Source Comments This information has been [...] release of HIV test results or diagnoses. [id number] Health Encounter Details Date Type Department Care Team (Latest Contact Info) Description 07/29/2019 Travel Social History Tobacco Use Types Packs/Day [...] [facility] Interventional Radiology [address] [place] [phone] Herve Carrillo MD [address] [facility] [address] [place] [phone] documented as of this encounter Visit Diagnoses Not on filedocumented in this encounter Additional Health Concerns Assessment Noted Time PHQ-9 Depression Total Score: 0 12/06/19 18 3:00 PM EDT documented as of this encounter Care Teams Process Pumper Relationship Specialty Start Date End Date Edgar Fournier MD [address] [place] [address] [place] [phone] PCP - General 08/18/17 06/23/21 Maile Valles RN Txp Post Coordinator Transplant Hepatology 11/07/17 Jack Ordoñez MD [address] [place] [phone] Consulting Physician Transplant Hepatology 01/05/18 documented as of this encounter
--- OUTSIDE RECORDS SUMMARY | 2024-07-12 12:45 | XMS_ITS | Encounter Summary ---
Author Organization [facility] Address [facility] [place] [address] Care Team Providers Care Book Shelver Name Role Phone Edgar Fournier MD Primary Care Provider [phone] Maile Valles RN Unavailable Unavail able Jack Ordoñez MD Unavailable [phone] Source Comments This information has been [...] release of HIV test results or diagnoses. [id number] Reason for Visit * Reason Comments Appointment IR Procedure 09/10/19 20 at 1145am with arrival at 1045am. Encounter Details Date Type Department Care Team (Late st Contact Info) Description 09/09/2019 Telephone [facility] Interventional Radiology [address] [place] [id number] Nadya eJtt RN Appointment (IR Procedure 09/10/2019 at 1145am with arrival at 1045am. ) Social History Tobacco Use Types Packs/Day [...] encounter Miscellaneous Notes * Telephone Encounter - Nadya Jett RN - 09/09/2019 12:37 PM EST IR PRE-PROCEDURE PHONE CALL NOTE Date: 09/09/2019 Patient: Aiden Stauffer Age: 44 y.o. Spoke to patient, Aiden during outgoing call, in preparation for upcoming IR Bilateral upper extremity vein mapping procedure at 1145am on 09/10/2019 with an arrival time of 1045am. Prep Instructions to be NPO after 545am (6 hrs prior to procedure) and need for a motor driver reviewed. Aiden Stauffer verbalized understanding and teach back of instructions. May take medications with sip of water. Encouraged to take anti-rejection medications (Prograf & Cellcept) at time prescribed. Aiden verbalized understanding. Interperter needed: No Wt Readings from Last 1 Encounters: 07/30/19 (!) 284 lb 8 oz (129 kg) Ht Readings from Last 1 Encounters: 07/29/19 5' 7 (1.702 m) Allergies Verified? Yes Allergies Allergen Reactions ??? Codeine Sulfate Hyper ??? Codeine Other (See Comments) Becomes hyper History: Primary Care Physician: Edgar Fournier MD Cardiovascular Disease: Hypertension; s/p left & right heart catheterization 06/05/2018 after abnormal stress test with chest pain; Quality Control Assistant's name: Pulmonary Disease: None Mannequin Decorator's name: Renal Disease: Yes and Dialysis , CARMEN/CKD now requiring POSTAL SUPERVISOR; HD catheter dual lumen 07/23/19; HD MWF; Recent admission on 07/19/19 for bacteremia and acute on chronic kidney injury. Patient was initiated on dialysis during this admission with sr creat peak at 7.7 on admission. 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 Treatment as per transplant ID (07/30/19); GI: EGD (esophagogastroduodenoscopy) 07/24 2019; Other: Vitamin D deficiency; obese; chronic anemia; Neuropathic pain; Restless leg syndrome; Heartburn: Yes, GERD (gastroesophageal reflux disease); CMV esophagitis (07/29/2019); Fainting: No Stroke: No Seizure: No Diabetes: Yes, DM type II on insulin; Bleeding Problems: Yes, secondary to esophageal varices with bleeding; Bruises/bleeds easily; Blood Clots: No Smoker: No}; If Yes, how many packs per day? 0; How many years of smoking? 0 Alcohol use: >3 Drinks per day: No; If No, how many drinks per week? 0 : N/A Can you lay flat: Yes Have you or a family member ever had problems with anesthesia/sedation: No Past Medical History: Diagnosis Date ??? Acute [...] TIPS PROCEDURE 10/2016 ??? TIPS Revision 04/2017 Medications: Current Outpatient Medications on File Prior to Visit Medication Sig Dispense Refill ??? aspirin 81 MG chewable tablet Chew 1 tablet (81 mg total) by mouth daily with breakfast. 30 tablet 5 ??? blood sugar diagnostic Str Use to test blood sugar up to 4 times a day. Diagnosis for use: E 9.65. For use with One Touch Verio meters. 150 strip 5 ??? blood-glucose meter (ONETOUCH VERIO SYSTEM) [facility] Use as instructed. 1 each 0 ??? carBAMazepine (TEGRETOL) 200 mg tablet Take 200 mg by mouth at bedtime. ??? carvedilol (COREG) 25 MG tablet Take 2 tablets (50 mg total) by mouth 2 times a day with meals.120 tablet 5 ??? cloNIDine HCl (CATAPRES) 0.1 MG tablet [...] every 7 days. 30 tablet 0 ??? ergocalciferol (VITAMIN D2) 50,000 unit capsule Take 50,000 Units by mouth once a week. ??? famotidine (PEPCID) 20 MG tablet Take 20 mg by mouth daily. ??? fluticasone propionate (FLONASE) 50 mcg/actuation nasal spray use 2 spray(s) in each nostril daily 11 ??? gabapentin (NEURONTIN) 100 MG capsule Take 4 capsules (400 mg total) by mouth daily. 180 capsule 0 ??? insulin glulisine U-100 (APIDRA U-100 INSULIN) 100 unit/mL injection Inject 5 Units subcutaneously 3 times a day with meals. 10 mL 0 ??? insulin NPH isoph U-100 human (HUMULIN N NPH INSULIN KWIKPEN) 100 unit/mL (3 mL) InPn Inject subcutaneously 20 units in the AM and 8 units in the PM. 15 mL 5 ??? lancets (MavizonTOUCH DELICA LANCETS) 33 gauge [facility] Use 1 strip as directed 4 times daily before meals and at bedtime. 150 each 5 ??? mycophenolate (CELLCEPT) 250 mg capsule Take 1 capsule (250 mg total) by mouth 2 times a day. 60 capsule 0 ??? NIFEdipine (PROCARDIA-XL) 90 MG (OSM) [...] day as needed. 100 packet 0 ??? valGANciclovir (VALCYTE) 450 mg tablet Take 1 tablet (450 mg total) by mouth every Monday, Monday, and Monday. Take 1 tablet (450mg total) by mouth every Monday, Monday, and Monday after dialysis 11 tablet 0 No current facility-administered medications on file prior to visit. Anticoagulation/Anti-platelet:Aspirin; Last dose given on daily. Medications Ok per Ahsan TOTH. Planned Sedation: Moderate Hydration needed: N/A Possible Pre-meds: N/A Possible labs needed: N/A Other Imaging needed: No Transportation needed: Yes Who will give you a ride and take care of you after discharge?: Family member. NADYA JETT Interventional Radiology [phone] 09/09/2019, 12:37 PM documented in this encounter Plan of Treatment Upcoming Encounters Date Type Department Care Team (Late st Contact Info) Description 07/15/2024 9:00 AM EST Hospital Encounter [facility] Interventional Radiology [address] [place] [address] Herve Carrillo MD [address] [facility] [place] [phone] documented as of this encounter Visit Diagnoses Not on filedocumented in this encounter Additional Health Concerns Assessment Noted Time PHQ-9 Depression Total Score: 0 12/06/19 18 3:00 PM EDT documented as of this encounter Care Teams Book Shelver Relationship Specialty Start Date End Date Edgar Fournier MD [address] [place] [address] [place] [address] PCP - General 08/18/17 06/23/21 Maile Valles, JANA Txp Post Coordinator Transplant Hepatology 11/07/17 Jack Ordoñez MD [facility] [place] [address] Consulting Physician Transplant Hepatology 01/05/18 documented as of this encounter
--- OUTSIDE RECORDS SUMMARY | 2024-07-12 12:46 | XMS_ITS | Encounter Summary ---
Author Organization [facility] Address [facility] [place] [address] Care Team Providers Care Ferryboat Helper Name Role Phone Edgar Fournier MD Primary Care Provider [phone] Maile Valles RN Unavailable Unavail able Jack Ordoñez MD Unavailable [phone] Source Comments This information has been [...] release of HIV test results or diagnoses. [id number] Health Reason for Visit * Auth/Cert Specialty Diagnoses / Procedures Referred By Contac t Referred To Contact Transplant Diagnoses HYPERTENSION / S/P LIVER TXPLANT [facility] [address]CCP [address] [place] [address] Phone: tel: Referral ID Status Reason Start Date Expiration Date Visits Re quested Visits Authorized [id number] 1 1 Encounter Details Date Type Department Care Team (Late st Contact Info) Description 07/24/2019 12:52 PM EST Anesthesia Event [facility] ENDOSCOPY [address] [place] [phone] Manuela Richardson MD [address] [place] [address] Anesthesia Record Procedure Summary Procedure Name Responsible Anesthesiologist Anesthesia Start Time Anesthesia Stop Time EGD WITH BIOPSY Manuela Richardson MD 07/24/19 1252 9 1327 Events Date Time Event Comment 07/24/2019 1252 An Start 1253 An Start Data 1305 An Induction 1305 Time Out 1317 An Emergence 1317 an stop data 1327 An Stop Meds Name Total propofol (DIPRIVAN) 10 mg/ml infusion - 100mL VIAL SIZE 286.67 mg lidocaine (PF) 20 mg/mL (2%) injection - Intravenous 50 mg lactated ringers infusion 0 mL * Agents Name N2O O2 N2O Air * Blood No blood administrations on file. Lines, Drains, and Airways Type Details Placement Removal Peripheral IV 07/20/19; 1503; 20 G (1.88); Right; Antecubital; Chlorhexidine; None; Ultrasound Guided; Tolerated well 07/20/19 1503 by Rose Lee RN 07/25/19 1611 by Rose Haynes RN HD Catheter 07/23/19; 1018; IR; Sterile; d. rusty p.a.; Dual Lumen (Vas Cath); Tunneled (Retroficiency. palindrome. si chronic catheter kit. ex: lot: [id number]); Right; Internal Jugular; (14.5); yes; 06/09/20; 0907; Not present upon assessment 07/23/19 1018 by William Hilliard RN 06/09/20 0907 by Zoila Sanders RN Anesthesia Airway Device 07/24/19; 1253; Nasal Cannula Salter; Capnograph; 05/29/20; 1519 07/24/19 1253 by Raquel Israel CRNA 05/29/20 1519 by Dontae Day CRNA documented in this encounter Social History [...] Progress Notes * Manuela Richardson MD - 07/24/2019 2:54 PM EST Anesthesia Post Note Patient: Aiden Stauffer Procedure(s) Performed: Procedure(s): EGD WITH BIOPSY Anesthesia type: No value filed. Patient location: Endoscopy PACU Post pain: Adequate analgesia Post assessment: no apparent anesthetic complications, tolerated procedure well and no evidence of recall Last Vitals: Vitals: 07/24/19 1045 07/24/19 1100 07/24/19 1238 07/24/19 1328 BP: (!) 150/95 (!) 176/98 166/88 168/87 BP Location: Right arm Patient Position: Lying Pulse: 78 79 83 87 Resp: 18 16 Temp: 97.6 ??F (36.4 ??C) 97.6 ??F (36.4 ??C) 98.3 ??F (36.8 ??C) TempSrc: Oral Oral Oral SpO2: 94% 93% Weight: (!) 290 lb (131.5 kg) Height: 5' 7 (1.702 m) Post vital signs: stable Level of consciousness: awake, alert and oriented Complications: None documented in this encounter H&P Notes * Manuela Richardson MD - 07/24/2019 12:07 PM EST [facility] DEPARTMENT OF ANESTHESIOLOGY PRE-PROCEDURAL EVALUATION Aiden Stauffer is a 44 y.o. year old male presenting for: Procedure(s): EGD WITH BIOPSY Surgeon: Mando Monterroso MD Chief Complaint HYPERTENSION / S/P LIVER TXPLANT Review of Systems Anesthesia Evaluation Patient summary reviewed and nursing notes reviewed. No history of anesthetic complications I have reviewed the History and Physical Exam, any relevant changes are noted in the anesthesia pre-operative evaluation. Cardiovascular: Exercise tolerance: Pérez Met score: 4 - Raking leaves. Weeding or pushing a power mower.Hypertension is. (-) past [place], angina. Neuro/Muscoloskeletal/Psych: (-) neuromuscular disease, TIA, no depression. Pulmonary: (-) asthma, sleep apnea, no PE. GI/Hepatic/Renal: (+) liver disease. GERD is. Chronic renal disease (dialysis today, potassium normal), ESRD. Endo/Other: (+) anemia (HCT 22.4). Diabetes. Comments: [...] Procedure Laterality Date ??? ABDOMINAL SURGERY ??? LEFT AND RIGHT HEART CATHETERIZATION N/A [...] file Gets together: Not on file Attends tenriism service: Not on file Active member of [...] Meds: Prior to Admission medications as of 07/19/19 0046 Medication Sig Taking? aspirin 81 MG chewable tablet Chew 1 tablet (81 mg total) by mouth daily with breakfast. Yes blood sugar diagnostic Strp Use to test blood sugar up to 4 times a day. Diagnosis for use: E 9.65.For use with One Touch Verio meters. Yes blood-glucose meter (ONETOUCH VERIO SYSTEM) [facility] Use as instructed. Yes carBAMazepine (TEGRETOL) 200 mg tablet Take 200 mg by mouth at bedtime. Yes carvedilol (COREG) 25 MG tablet Take 2 tablets (50 mg total) by mouth 2 times a day with meals. Yes cloNIDine HCl (CATAPRES) 0.1 MG tablet Take 1 tablet (0.1 mg total) by mouth if needed. Patient taking differently: Take 0.1 mg by mouth 2 times a day. Yes doxazosin (CARDURA) 8 MG tablet 8 mg 2 times a day. Yes entecavir (BARACLUDE) 0.5 MG tablet Take 1 tablet (0.5 mg total) by mouth every 72 hours. Yes ergocalciferol (VITAMIN D2) 50,000 unit capsule Take 50,000 Units by mouth once a week. Yes famotidine (PEPCID) 20 MG tablet Take 20 mg by mouth daily. Yes fluticasone propionate (FLONASE) 50 mcg/actuation nasal spray use 2 spray(s) in each nostril daily Yes gabapentin (NEURONTIN) 100 MG capsule Take 4 capsules (400 mg total) by mouth daily. Yes insulin glulisine U-100 (APIDRA U-100 INSULIN) 100 unit/mL injection Inject 5 Units subcutaneously 3 times a day with meals. Yes insulin NPH isoph U-100 human (HUMULIN N NPH INSULIN KWIKPEN) 100 unit/mL (3 mL) InPn Inject subcutaneously 20 units in the AM and 8 units in the PM. Yes lancets (TessellaUCH DELICA LANCETS) 33 gauge Misc Use 1 strip as directed 4 times daily before meals and at bedtime. Yes mycophenolate (CELLCEPT) 250 mg capsule Take 3 capsules (750 mg total) by mouth 2 times a day. Yes NIFEdipine (PROCARDIA-XL) 90 MG (OSM) 24 hr tablet Take 90 mg by mouth 2 times a day. Yes ondansetron (ZOFRAN-ODT) 4 MG disintegrating tablet every 8 hours as needed. Yes pen needle, diabetic 32 gauge x 5/32 Ndle Use as directed to inject insulin 4 times daily. Yes pen needle, diabetic 32 gauge x 5/32 Ndle For use with insulin pen. Use as instructed. Yes polyethylene glycol (MIRALAX) 17 gram packet Take 17 g by mouth 2 times a day as needed. Yes sodium bicarbonate 650 MG tablet Take 2 tablets (1,300 mg total) by mouth 2 times a day. Yes tacrolimus ER, 24 HR, (ENVARSUS XR) 1 mg Tb24 Take 2 tablets (2 mg total) by mouth daily. Per Hepatology recommendations Yes torsemide (DEMADEX) 20 MG tablet Take 1 tablet (20 mg total) by mouth daily. Yes Inpatient Meds: Scheduled: ??? aspirin 81 mg Oral Daily with breakfast ??? carBAMazepine 200 mg Oral Nightly (2099) ??? carvedilol 50 mg Oral BID WC ??? cefTRIAXone (ROCEPHIN) IVPB 2 g Intravenous Q24H ??? cloNIDine HCl 0.1 mg Oral BID ??? cycloSPORINE modified 50 mg Oral BID ??? [START ON 07/27/2019] entecavir 0.5 mg Oral Q7 Days ??? ergocalciferol 50,000 Units Oral Weekly ??? famotidine 20 mg Oral Daily 0900 ??? insulin lispro 0-4 Units Subcutaneous Nightly (2099) ??? insulin lispro 0-5 Units Subcutaneous TID AC ??? insulin lispro 3 Units Subcutaneous TID AC ??? insulin NPH 18 Units Subcutaneous Daily 0900 ??? insulin NPH 6 Units Subcutaneous Nightly (2099) ??? iron sucrose 300 mg Intravenous Daily 0900 ??? lidocaine 1 patch Transdermal Q24H ??? NIFEdipine 90 mg Oral BID ??? terazosin 10 mg Oral Nightly (2099) ??? valACYclovir 500 mg Oral Daily 0900 Continuous: PRN: acetaminophen, aluminum & magnesium hydroxide-simethicone AND lidocaine HCl, benzocaine-menthol, dextrose 10% in water OR dextrose 10% in water, gabapentin, glucose, melatonin, ondansetron, phenol, polyethylene glycol, traMADol Vital Signs Wt Readings from Last 3 Encounters: 07/23/19 (!) 290 lb (131.5 kg) 07/01/19 (!) 292 lb 14.4 oz (132.9 kg) 02/28/19 (!) 282 lb (127.9 kg) Ht Readings from Last 3 Encounters: 07/19/19 5' 7 (1.702 m) 06/27/19 5' 7 (1.702 m) 02/28/19 5' 6 (1.676 m) Temp Readings from Last 3 Encounters: 07/23/19 97.7 ??F (36.5 ??C) (Oral) 07/01/19 98.1 ??F (36.7 ??C) (Oral) 02/28/19 98.3 ??F (36.8 ??C) (Oral) BP Readings from Last 3 Encounters: 07/24/19 (!) 176/98 07/01/19 142/85 02/28/19 141/75 Pulse Readings from Last 3 Encounters: 07/24/19 79 07/01/19 67 02/28/19 77 @LASTSAO2(3)@ Physical Exam Airway: Mallampati: II Mouth Opening: >2 FB TM distance: > = 3 FB Neck ROM: full Dental: Pulmonary: (-) no rhonchi, no wheezes and no PE. Cardiovascular: Rhythm: regular Rate: normal Neuro/Musculoskeletal/Psych: Mental status: alert and oriented to person, place and time. Abdominal: Current OB Status: Other Findings: Laboratory Data Lab Results Component Value Date WBC 4.4 07/23/2019 HGB 7.3 (L) 07/23/2019 HCT 22.4 (L) 07/23/2019 MCV 83.0 07/23/2019 PLT 146 07/23/2019 No results found for: ABORH Lab Results Component Value Date GLUCOSE 156 (H) 07/24/2019 BUN 52 (H) 07/24/2019 CO2 24 07/24/2019 CREATININE 6.40 (H) 07/24/2019 K 4.4 07/24/2019 NA 139 07/24/2019 CL 103 07/24/2019 CALCIUM 7.1 (L) 07/24/2019 ALBUMIN 3.0 (L) 07/24/2019 ALBUMIN 3.0 (L) 07/24/2019 PROT 5.7 (L) 07/24/2019 ALKPHOS 79 07/24/2019 ALT 6 (L) 07/24/2019 AST 13 07/24/2019 BILITOT 0.2 07/24/2019 Lab Results Component Value Date INR 1.1 07/19/2019 No results found for: PREGTESTUR, PREGSERUM, HCG, HCGQUANT Anesthesia Plan ASA 3 Current non-smoker Anesthesia Type: MAC. PONV Risk Factors: current non-smoker, plan for postoperative opioid use. (PIV, SDS postop. Local anesthesia per surgeon. Patient is aware that they may be awake for parts of the procedure. We discussed general anesthesia as a backup plan. ) Anesthetic plan and risks discussed with patient. Plan discussed with attending and HOUSE ADMIN. documented in this encounter Miscellaneous Notes * Extubation Criteria - Raquel Israel CRNA - 07/24/2019 1:25 PM EST Anesthesia Extubation Criteria: Airway Device: n/a Emergence Details: Smooth _x_ Stormy __ Prolonged __ Extubation Criteria: Motor strength intact _x_ Follows commands _x_ Good airway reflexes _x_ OP suctioned _x_ Follows commands: NA Patient extubated: No documented in this encounter Plan of Treatment Upcoming Encounters Date Type Department Care Team (Late st Contact Info) Description 07/15/2024 9:00 AM EST Hospital Encounter [facility] Interventional Radiology [address] [place] [phone] Herve Carrillo MD [address] [place] [address] documented as of this encounter Visit Diagnoses * Transfer of Care - Raquel Israel CRNA - 07/24/2019 1:24 PM EST Anesthesia Transfer of Care Note Patient: Aiden Stauffer Procedure(s) Performed: Procedure(s): EGD WITH BIOPSY Patient location: Endoscopy PACU Anesthesia type: No value filed. Airway Device on Arrival to PACU/ICU: Nasal Cannula IV Access: Peripheral Monitors Recommended to be Used During PACU/ICU: Standard Monitors Outstanding Issues to Address: None Level of Consciousness: awake, alert and oriented Post vital signs: Vitals: 07/24/19 1238 BP: 166/88 Pulse: 83 Resp: 18 Temp: 97.6 ??F (36.4 ??C) SpO2: 94% Complications: None Date 07/23/19 07 - 07/24/19 0659 07/24/19 0700 - 07/25/19 0659 Shift 4976-3944 1264-4006 5686-4254 24 Hour Total 9422-6187 1498-5324 4533-5312 24 Hour Total INTAKE P.O. 100 5010 5110 P.O. 100 5010 5110 Shift Total(mL/kg) 100(0.7) 5010(38.1) 5110(38.8) OUTPUT Urine(mL/kg/hr) 400(0.4) 400(0.1) 200 200 Urine 400 400 200 200 Urine Occurrence 1 x 1 x Other 171 173 1351 1300 Net fluid removal (ml) 113 699 4171 1300 Shift Total(mL/kg) 400(2.9) 400(3) 800(6.1) 1500(11.4) 1500(11.4) Weight (kg) 136.9 131.5 131.5 131.5 131.5 131.5 131.5 131.5 documented in this encounter Administered Medications Inactive Administered Medications - up to 3 most recent administrations Medication Order MAR Action Action Date Dose Rate Site lactated Ringers infusion Continuous - One Step Medications Only, Starting on Mon07/24/19 at 1252, Anesthesia Intra-op New Bag 07/24/2019 12:52 PM EST lidocaine (PF) 2% (20 mg/mL) Intravenous, PRN - One Step Medication Only, Starting on Mon07/24/19 at 1253, Anesthesia Intra-op Given 07/24/2019 12:53 PM EST 50 mg propofol (DIPRIVAN) infusion 10 mg/mL Continuous - One Step Medications Only, Starting on Mon07/24/19 at 1252, Anesthesia Intra-op Rate/Dose Change 07/24/2019 1:01 PM EST 100 mcg/kg/min 78.9 mL/hr New Bag 07/24/2019 12:52 PM EST 120 mcg/kg/min 94.7 mL/ hr documented in this encounter Additional Health Concerns Assessment Noted Time PHQ-9 Depression Total Score: 0 12/06/19 18 3:00 PM EDT documented as of this encounter Care Teams Ferryboat Helper Relationship Specialty Start Date End Date Edgar Fournier MD [address] [place] [address] [place] [address] PCP - General 08/18/17 06/23/21 Maile Valles, JANA Txp Post Coordinator Transplant Hepatology 11/07/17 Jack Ordoñez MD [address] [place] [address] Consulting Physician Transplant Hepatology 01/05/18 documented as of this encounter
--- OUTSIDE RECORDS SUMMARY | 2024-07-12 12:46 | XMS_ITS | Encounter Summary ---
Author Organization [facility] Address [facility] [place] [address] Care Team Providers Care Program Manager Environmental Planning Name Role Phone Edgar Fournier MD Primary Care Provider [phone] Maile Valles RN Unavailable Unavail able Arnold Ordoñez MD Unavailable [phone] Source Comments This information has been [...] release of HIV test results or diagnoses. [id number] Reason for Referral * Occupational Therapy (Routine) - Closed Specialty Diagnoses / Procedures Referred By Declan hines Referred To Contact Occupational Therapy Diagnoses Liver transplant recipient ([facility]) Keon Brown MD [address] [facility] [address] Floor, [place] [address] Phone: tel: fax: Referral ID Status Reason Start Date Expiration Date Visits Re quested Visits Authorized [id number] Closed 07/25/2019 01/21/2020 1 1 * Physical Therapy (Routine) - Closed Specialty Diagnoses / Procedures Referred By Declan hines Referred To Contact Physical Therapy Diagnoses Liver transplant recipient ([facility]) Keon Brown MD [address] [facility] [address], [place] [address] Phone: tel: fax: Referral ID Status Reason Start Date Expiration Date Visits Re quested Visits Authorized [id number] Closed 07/25/2019 01/21/2020 1 1 Reason for Visit * Auth/Cert Specialty Diagnoses / Procedures Referred By Declan hines Referred To Contact Transplant Diagnoses HYPERTENSION / S/P LIVER TXPLANT [address] [place] [address] Phone: tel: Referral ID Status Reason Start Date Expiration Date Visits Re quested Visits Authorized [id number] 1 1 Encounter Details Date Type Department Care Team (Latest Contact Info) Description 07/19/2019 9:25 PM EST - 07/25/2019 4:42 PM EST Hospital Encounter [address] [place] [address] Marcelino Fox MD [address] [place] [address] Liver transplant recipient ([facility]) (Primary Dx); Liver transplanted (CMS-HCC); Other cirrhosis of liver ([facility]); Acute renal failure superimposed on stage 3 chronic kidney disease, unspecified acute renal failure type (CMS-HCC); Anemia due to stage 5 chronic kidney disease, not on chronic dialysis (CMS-HCC) (CMS-HCC); Group C streptococcal infection; Nephrotic range proteinuria; Acute renal failure superimposed on chronic kidney disease, on chronic dialysis, unspecified acute renal failure type (CMS-HCC); CARMEN (acute kidney injury) (CMS-HCC); Anemia due to chronic kidney disease, unspecified CKD stage; Chronic renal failure, stage 5 (CMS-HCC); ESRD (end stage renal disease) ([facility]); Essential hypertension; S/P liver transplant ([facility]); Immunosuppression ([facility]) Discharge Disposition: Home or Self [...] Sign Reading Time Taken Comments Blood Pressure 165/103 07/25/2019 12:44 PM EST Pulse 86 07/25/2019 12:44 PM EST Temperature 36.6 ??C (97.9 ??F) 07/25/2019 12:[address] Respiratory Rate 18 07/25/2019 12:44 PM EST Oxygen Saturation 92% 07/25/2019 12:44 PM EST Inhaled Oxygen Concentration 92% 07/25/2019 1 2:44 PM EST Weight 131.5 kg (290 lb) 07/24/2019 12:38 PM EST Height 170.2 cm (5' 7 ) 07/24/2019 12:38 PM EST Body Mass Index 45.42 07/24/2019 12:38 PM EST documented in this encounter Discharge Summaries * Keon Brown MD - 07/25/2019 4:55 PM EST Images from the original note were not included. [facility] Inpatient Discharge Summary Patient: Leoncio Rollins Age: 44 y.o. CSN: [id number] Date of Admission: 07/19/2019 Date of Discharge: 07/25/2019 Attending Physician: No att. providers found Primary [...] Active Hospital Problems Diagnosis Date Noted ??? Ahdkn-bn-qhgmxyd kidney injury (CMS Dx) [N17.9, N18.9] 01/12/2019 ??? Group C streptococcal infection [A49.1] 07/20/2019 Resolved Hospital Problems No resolved problems to display. Operations/Procedures Performed (include dates) Surgeries: Surgical/Procedural Cases on this Admission Case IDs Date Procedure Surgeon Location Status [id number] 07/24/19 EGD WITH BIOPSY Arnold Ordoñez MD ENDOSCOPY Comp Lines and tubes: Patient Lines/Drains/Airways Status Active Line / PIV Line Name: Placement date: Placement time: Site: Days: HD Catheter Dual Lumen (Vas Cath) Tunneled Right Internal Jugular 07/23/19 1018 Internal Jugular 2 [facility] Device Days (06/25/2019 to 07/24/2019) Central line: 2 Urinary catheter: 0 Other Procedures / Pertinent Imaging: CT Abdomen and Pelvis WO IV contrast Final Result IMPRESSION: No acute findings in the abdomen/pelvis. Approved by Leeroy Jo MD on 07/21/2019 10:26 AM EST I have personally reviewed the images and I agree with this report. Report Verified by: Manolo Rosenthal MD at 07/21/2019 10:[address] Head WO contrast Final Result IMPRESSION: 1. No acute intracranial abnormality. Report Verified by: Eleanor Mtz at 07/21/2019 9:53 AM EST X-ray Portable Chest Final Result IMPRESSION: Negative portable chest. Approved by Felice Arnett MD on 07/20/2019 5:57 AM EST I have personally reviewed the images and I agree with this report. Report Verified by: William Mathew MD at 07/20/2019 6:13 AM EST Consulting Services (include reason) Transplant ID- for antibiotic and testinng recommendations due to immunosuppressed status. Transplant nephrology- Due to acute renal injury of unknown etiology. Got dialysis recommendations. Pharmacy- to assist with dialysis renal dosing of drugs Hepatology- to do prior liver transplant and for adjustment of immunosuppressants. Allergies Allergies Allergen Reactions ??? Codeine Sulfate Hyper ??? Codeine Other (See Comments) Becomes hyper Discharge Medications Medication List TAKE these medications, which are NEW Quantity/Refills cefazolin IVPB (Outpatient / Ambulatory) Commonly known as: ANCEF 2g every Monday, 2g every Monday, 3g every Monday. To administer with dialysis. Give as IV piggyback in appropriate diluent and volume as specified by receiving facility. Refills: 0 cycloSPORINE modified 25 MG capsule Generic drug: cycloSPORINE modified Take 2 capsules (50 mg total) by mouth 2 times a day. Quantity: 120 capsule Refills: 1 iron sucrose 200 mg iron/10 mL Soln Commonly known as: VENOFER Intravenous 15 mLs (300 mg total) once for 1 dose. To administer with next hemodialysis. Quantity: 15 mL Refills: 0 lidocaine 5 % Commonly known as: LIDODERM Apply 1 patch onto affected area once a day. Leave patch on for 12 hours then remove for 12 hours. Start taking on: July 26, 2019 Quantity: 30 patch Refills: 0 phenol 1.4 % Spra Commonly known as: SORE THROAT Use 1 to 2 sprays in throat every 2 hours as needed. Quantity: 177 mL Refills: 0 valACYclovir 500 MG tablet Commonly known as: VALTREX Take 1 tablet (500 mg total) by mouth daily for 12 days. Quantity: 12 tablet Refills: 0 TAKE these medication, which have CHANGED Quantity/Refills entecavir 0.5 MG tablet Commonly known as: BARACLUDE Take 1 tablet (0.5 mg total) by mouth every 7 days. Start taking on: July 27, 2019 What changed: when to take this Quantity: [...] Quantity: 150 strip Refills: 5 blood-glucose meter [facility] Commonly known as: ONETOUCH VERIO SYSTEM Use [...] mouth 2 times a day. Refills: 0 doxazosin 8 MG tablet Commonly known as: CARDURA 8 mg 2 times a day. Refills: 0 famotidine 20 MG tablet Commonly [...] 33 gauge Misc Commonly known as: ONETOUCH DELMobile Posse LANCETS Use 1 strip as directed 4 times daily before meals and at bedtime. Quantity: 150 each Refills: 5 mycophenolate 250 mg capsule Commonly known as: CELLCEPT Take 3 capsules (750 mg total) by mouth 2 times a day. Refills: 0 NIFEdipine 90 MG (OSM) 24 [...] them with you. STOP taking these medications sodium bicarbonate 650 MG tablet tacrolimus ER (24 HR) 1 mg Tb24 Commonly known as: ENVARSUS XR torsemide 20 MG tablet Commonly known as: DEMADEX Where to Get Your Medications These medications were sent to [facility] [address] [facility] [address], [facility] [address] Hours: Monday - Monday: 8:45AM - 5:00PM ?? cycloSPORINE modified 25 MG capsule ?? entecavir 0.5 MG tablet ?? lidocaine 5 % ?? phenol 1.4 % Spra ?? valACYclovir 500 MG tablet Information about where to get these medications is not yet available Ask your nurse or doctor about these medications ?? cefazolin IVPB (Outpatient / Ambulatory) ?? cloNIDine HCl 0.1 MG tablet ?? iron sucrose 200 mg iron/10 mL Soln ?? mycophenolate 250 mg capsule Discharge Exam Physical Exam Constitutional: Appearance: Normal appearance. He is obese. HENT: Head: Normocephalic and atraumatic. Nose: Nose normal. Mouth/Throat: Mouth: Mucous membranes are moist. Pharynx: Oropharyngeal exudate (two ulclers present on soft palate, resolving) present. Eyes: General: No scleral icterus. Extraocular Movements: Extraocular movements intact. Conjunctiva/sclera: Conjunctivae normal. Pupils: Pupils are equal, round, and reactive to light. Cardiovascular: Rate and Rhythm: Normal rate and regular rhythm. Heart sounds: No murmur. No friction rub. No gallop. Pulmonary: Effort: Pulmonary effort is normal. No respiratory distress. Breath sounds: Normal breath sounds. No stridor. No wheezing, rhonchi or rales. Chest: Chest wall: No tenderness. Abdominal: General: Bowel sounds are normal. There is no distension. Palpations: There is no mass. Tenderness: There is no tenderness. There is no guarding or rebound. Hernia: No hernia is present. Musculoskeletal: Normal range of motion. Skin: Coloration: Skin is not jaundiced. Findings: No rash. Neurological: General: No focal deficit present. Mental Status: He is alert and oriented to person, place, and time. Mental status is at baseline. Psychiatric: Mood and Affect: Mood normal. Behavior: Behavior normal. Reason for Admission Leoncio Rollins is a 44 y.o. male with PMH of KIM s/p liver transplant in 2018, CKD, HTN, and diabetes who presented with fevers, bacteremia and acute on chronic kidney injury. Hospital Course Active Hospital Problems Diagnosis Date Noted ??? Qstck-we-wnacoxd kidney injury ([facility] Dx) [N17.9, N18.9] 01/12/2019 ??? Group C streptococcal infection [A49.1] 07/20/2019 Resolved Hospital Problems No resolved problems to display. Bacteremia Patient present to outside hospital with fevers and shaking. Cultures came back positive as type C strep. He was started on ceftriaxone qd and an echo was ordered showing no evidence of endocarditis.Source of bacteremia was potentially oral ulcers. Chest x-ray showed no evidence of pneumonia. Urinalysis was clean and patient had no ascites or abdominal pain. His Cellcept was held due to acute infection. Ancef will be continued outpatient per infectious disease recommendation for 14 day course,last day (08/02). It will be given with dialysis and is renally dosed. Acute on chronic kidney injury, Oliguria?? Creatinine was 7 on admission with a baseline of 4-5. BUN was 58 on admission. Albumin/creatinine ratio was >2.5. CT abdomen/pelvis showed no evidence of obstruction. Transplant nephrology was consulted and they recommended kidney biopsy which the patient declined (afraid of bleeding on the table per patient and discourse between providers at the time). Kidney function continued to decline and creatinine peaked at ~9. At this point transplant nephrology recommended initiation of dialysis. TCD place 07/23. Dialysis was initiated in the hospital and social work has set up dialysis at a center near his home. Torsemide was held during this admission and on discharge. Secondary Hyperparathyroidism Calcium was low during hospital stay at ~7.9 corrected. Renal recommended ergocalciferol 50,000 units weekly. ?? Non-anion AG metabolic acidosis Likely due to acute kidney injury at admission and resolved during hospital stay. Renal team discontinued home sodium bicarbonate because he is now on dialysis. ?? Acute on chronic anemia Hemoglobin was 7.4 on admission then dropped to 6.7 at which point he received 2 units of red cells. Hemoglobin then stabilized to around 7.9 and is now 8.9 at discharge. Iron studies show that this is likely anemia of chronic disease. CT head and CT abdomen pelvis were both completed and showed noevidence of active bleeding. ADELAIDA showed no evidence of blood and no bleeding was seen with EGD. To have IV iron with dialysis, last 300 mg dose outpatient. Oral ulcers/ throat pain Ulcers were causing some throat pain and retching during hospital stay. They were cultured for CMV and HSV and these are pending. Blood serologies showed +CMV IgM so there were some concern for CMV or HSV esophagitis. EGD was performed which showed no evidence of esophagitis. Valacyclovir was started and oral ulcers began to improve the next day. Valacyclovir will be continued outpatient for 14 day course. ?? Orthotopic liver transplant in September 201709/15 KIM cirrhosis Patient received liver with hepatitis B so entecavir was continued during hospitalization and was renally dosed for dialysis (once weekly). Tacrolimus and Cellcept were initially held and tacrolimus was then resumed once fevers resolved. Tacrolimus trough was <2 so the hepatology team increased dose from 2mg to 3mg. Patient did not tolerate 3mg so tacrolimus was switched to cyclosporine and started at 50mg bid. Hepatology will follow cyclosporine levels and Cellcept OK to resume on dischargeat home dose. ?? Type 2 diabetes NPH was given, 18 units in am, 6 units in pm with 3u insulin lisproTID AC with SSI as needed based on POC glucose checks. Hba1c was 6.8 on admission and glucose was 74-272 during hospital stay. Relatively well controlled over hospital stay. ?? Hypertension Continued on carvedilol, clonidine, nifedipine, and terazosin during hospital stay. Blood pressuresspiked to 222/132 during dialysis but patient missed several doses during his hospital stay. Blood pressured medications should be adjusted by PCP outpatient. ?? Neuropathic pain?? Patient did not complain of any neuropathic pain during his hospital stay. Did not required his home gabapentin. ?? RLS Patient continued home carbamazepine and this was well-controlled during hospital stay. Condition on Discharge 1. Functional Status: normal Describe limitations, if any: none 2. Mental Status: Alert/Oriented Describe limitations, if any: none 3. Dietary Restrictions / Tube Feeding / TPN Diet Orders Diet regular starting at 12/ 1414 Regular Diet 4. Discharge specific orders: None required 5. Core measures followed: (if this is a core measure patient) Discharge Weight: (!) 290 lb (131.5 kg) Core Measure Documentation Was the Influenza Vaccine Screening Completed?: Yes Was the influenza vaccine ordered?: No The core measures checklist is complete for discharge?: Yes Disposition Home independent Follow-Up Appointments No future appointments. No follow-up provider specified. 1. Follow up cyclosporine levels and titration outpatient - next lab draw Monday 2. Follow up CMV serum PCR x2 q7 days - to fax to ID Dr. Johnson [phone] 3. Monitor HTN control. 4. IV ancef 2g/2g/3g with iHD, EOT 08/01 5. PO valacyclovir 500 mg bid, EOT 08/06 Signed: KEON BROWN MD 07/25/2019, 4:59 PM Cosigned by Marcelino Fox MD at 07/26/2019 8:04 AM EST Associated attestation - Marcelino Fox MD - 07/26/2019 8:04 AM EST Discharge Note Discharge Home Diagnoses S/p liver transplantation chronic renal failure stg 5 on hemodialysis Bacteremia Follow up: Liver clinic I saw and examined the patient. I discussed with the resident or fellow and agree with Dr. Brown's findings and plan as documented in the note. Marcelino Fox MD * Lizeth Oreilly, FRONT END SOFTWARE DEVELOPER, CUSTOMER CARE COORDINATOR - 07/25/2019 3:09 PM EST [facility] Instrument Lens Generator/Political Researcher Discharge Summary Patient name: Leoncio Rollins Patient : 1975 Age: 44 y.o. Gender: male Patient emergency contact: Extended Emergency Contact Information Primary Emergency Contact: Kym Rollins Address: [address] [place], [place] [address] [facility] Relation: Spouse Secondary Emergency Contact: EhKimberly [facility] Relation: Mother Attending provider: Marcelino Fox MD Primary care physician: Edgar Fournier MD The MD has indicated that the patient is ready for discharge. Leoncio Rollins was referred and accepted at [facility]; accepted for MWF @ 11:15 chair time. Patient will receive IV antibiotics at dialysis and will obtain required labs locally at [facility]. SW inserted dialysis center info into AVS for patient/spouse reference. The patient will be transported home by his spouse, Kym Rollins. Transfer Mode/Level of Care: Family DC Summary and clinicals have been faxed to dialysis center. The plan has been reviewed: Patient/Family Informed [...] has been reviewed with the multi-disciplinary team. RADHA Mead, CUSTOMER CARE COORDINATOR Inpatient Political Researcher Service [phone] Treatment Preferences Treatment Preferences: Distance Post-Discharge Goals Patient's Post-Discharge goals: DC Home Post Acute Care Provider Information: Dialysis Agency Name: [facility] Location: [facility] Contact Number: [phone] Pending Labs & Dialysis Information: Pending Lab Results None Dialysis Order (48h ago, onward) Ordered Start 07/25/19 1056 IP Hemodialysis orders/machine parameters - ONCE TODAY (Hemodialysis orders (single select)) Once Comments: In an event of an interruption, [...] (hours) 4 Dialyzer Medisystem BFR 350 mL/min 200 DFR 700 mL/min 400 Dialysate Temperature (C) 36 K+ Sliding Scale Potassium Ca++ 2.5 mEq Bicarb 35 mEq Na+ 140 mEq Dry Weight/Fluid Removal Goal (Liters) 0-2 L UF Access Site Central Line Hepatitis B Surfaces Antigen (HBsAg) Resulted in Last 30 days? See Below Yes 07/25/19 1056 07/25/19 1054 IP Hemodialysis orders/machine parameters - ONCE TODAY Once Comments: In an event of an interruption, [...] of treatment (hours) 4 Dialyzer Medisystem BFR Other (please specify) DFR Other (please specify) Dialysate Temperature (C) 36 K+ Sliding Scale Potassium Ca++ 2.5 mEq Bicarb 35 mEq Na+ 140 mEq Dry Weight/Fluid Removal Goal (Liters) 2 liters UF Access Site Central Line Hepatitis B Surfaces Antigen (HBsAg) Resulted in Last 30 days? See Below Yes 07/25/19 1053 07/25/19 1044 IP Hemodialysis orders/machine parameters - ONCE TODAY (Hemodialysis orders (single select)) Once, Status: Canceled Comments: In an event of [...] disease Duration of treatment (hours) 3 Dialyzer Medisystem BFR 350 mL/min 200 DFR 700 mL/min 400 Dialysate Temperature (C) 36 K+ Sliding Scale Potassium Ca++ 2.5 mEq Bicarb 35 mEq Na+ 140 mEq Dry Weight/Fluid Removal Goal (Liters) 0-2 L UF Access Site Central Line Hepatitis B Surfaces Antigen (HBsAg) Resulted in Last 30 days? See Below Yes 07/25/19 1044 07/25/19 0737 IP Hemodialysis orders/machine parameters - ONCE TODAY Once, Status: Canceled Comments: In an event of [...] of treatment (hours) 4 Dialyzer Medisystem BFR Other (please specify) 200 DFR Other (please specify) 400 Dialysate Temperature (C) 36 K+ Sliding Scale Potassium Ca++ 2.5 mEq Bicarb 35 mEq Na+ 140 mEq Dry Weight/Fluid Removal Goal (Liters) 2 liters UF Access Site Central Line Hepatitis B Surfaces Antigen (HBsAg) Resulted in Last 30 days? See Below Yes 07/25/19 0735 07/24/19 1018 Hemodialysis Treatment Modification Once Comments: Change Blood flow rate to 200ml/min, Change Dialysate flow rate to 400ml/min. Remove 1-2 liters. Ordering Provider: Li Rossi MD Question Answer Comment PLEASE MODIFY HEMODIALYSIS THERAPY TIME COMPARED TO ORDERED TIME DUE TO: Technical Issue Technical Issue Other (Please specify) Other (Please Specify) change orders 07/24/19 1017 07/24/19 0820 IP Hemodialysis orders/machine parameters - ONCE TODAY (Hemodialysis orders (single select)) Once, Status: Canceled Comments: In an event of an interruption, due to the time required to safely flush the lines/strip and change the dialyzer/tubing to restart the therapy, modification of treatment duration within 15 minutes or less of the prescribed time due to technical or patient related reasons are deemed acceptable and is implied in this order set. Ordering Provider: Li Rossi MD Question Answer Comment Diagnosis End stage renal disease Duration of treatment (hours) 3 Dialyzer Medisystem BFR Other (please specify) 200 DFR Other (please specify) 400 Dialysate Temperature (C) 36 K+ Sliding Scale Potassium Ca++ 2.5 mEq Bicarb 35 mEq Na+ 140 mEq Dry Weight/Fluid Removal Goal (Liters) 0-1 L UF Access Site Central Line Hepatitis B Surfaces Antigen (HBsAg) Resulted in Last 30 days? See Below Yes 07/24/19 0820 07/24/19 0741 IP Hemodialysis orders/machine parameters - ONCE TODAY (Hemodialysis orders (single select)) Once, Status: Canceled Comments: In an event of [...] disease Duration of treatment (hours) 3 Dialyzer Medisystem BFR 250 mL/min DFR 500 mL/min Dialysate Temperature (C) 36 K+ Sliding Scale Potassium Ca++ 2.5 mEq Bicarb 35 mEq Na+ 140 mEq Dry Weight/Fluid Removal Goal (Liters) 1 L UF Access Site Central Line Hepatitis B Surfaces Antigen (HBsAg) Resulted in Last 30 days? See Below Yes 07/24/19 0741 07/24/19 0738 IP Hemodialysis orders/machine parameters - ONCE TODAY (Hemodialysis orders (single select)) Once, Status: Canceled Comments: In an event of [...] disease Duration of treatment (hours) 3 Dialyzer Medisystem BFR 250 mL/min DFR 500 mL/min Dialysate Temperature (C) 36 K+ Sliding Scale Potassium Ca++ 2.5 mEq Bicarb 35 mEq Na+ 140 mEq Dry Weight/Fluid Removal Goal (Liters) nil UF Access Site Central Line Hepatitis B Surfaces Antigen (HBsAg) Resulted in Last 30 days? See Below Yes 07/24/19 0738 07/23/19 1521 IP Hemodialysis orders/machine parameters - ONCE TODAY (Hemodialysis orders (single select)) Once, Status: Canceled Comments: In an event of an interruption, due to the time required to safely flush the lines/strip and change the dialyzer/tubing to restart the therapy, modification of treatment duration within 15 minutes or less of the prescribed time due to technical or patient related reasons are deemed acceptable and is implied in this order set. Ordering Provider: Li Rossi MD Question Answer Comment Diagnosis End stage renal disease Duration of treatment (hours) 2 Dialyzer Medisystem BFR Other (please specify) 200 mL/min DFR Other (please specify) 400ml/min Dialysate Temperature (C) 36 K+ Sliding Scale Potassium Ca++ 2.5 mEq Bicarb 35 mEq Na+ 140 mEq Dry Weight/Fluid Removal Goal (Liters) nil UF Access Site Central Line Hepatitis B Surfaces Antigen (HBsAg) Resulted in Last 30 days? See Below Yes 07/23/19 1521 [facility] PreTreatment (last 720 hours) [facility] Pre-Treatment Row Name 07/25/19 0800 07/25/19 0722 07/24/19 0709 Technical Checks Prescribed Treatment Time (minutes) 240 -- -- Machine Number 237 -- -- Chlorine /Chloramine Negative Yes -- -- Alarms Verified Yes -- -- NVL Enabled Yes -- -- Independent Dialysate check done Yes -- -- Dialysate pH 7.1 -- -- Dialysate Temperature 96.8 ??F (36 ??C) -- -- Machine Conductivity 13.5 -- -- Meter Conductivity 13.7 -- -- Time-Out Correct Patient? -- Yes Yes What Procedure? -- dialysis dialysis Correct Procedure? -- Yes Yes Consents Verified? -- Yes Yes Lab Results Available? -- Yes -- Hep B Core Total Ab -- negative -- HB Core Total Ab last drawn -- 07/22/19 -- Hep B Surface Ab -- positive -- HBsAB last drawn -- 07/22/19 -- Hepatitis B Surface Ag -- negative -- HBsAG last drawn -- 07/22/19 -- Name of Clinician entering information -- Kelly Ly RN -- Are you the first or second reviewer? -- First Reviewer -- Row Name 07/24/19 0654 07/23/19 1549 07/23/19 1531 Technical Checks Prescribed Treatment Time (minutes) 180 -- -- Machine Number [id number] Chlorine /Chloramine Negative Yes -- -- Alarms Verified Yes -- -- NVL Enabled Yes -- -- Independent Dialysate check done Yes -- -- Dialysate pH 7.1 -- -- Dialysate Temperature 96.8 ??F (36 ??C) -- -- Machine Conductivity 14 -- -- Meter Conductivity 13.8 -- -- Time-Out Correct Patient? -- Yes -- What Procedure? -- ihd -- Correct Procedure? -- Yes -- Consents Verified? -- Yes -- Lab Results Available? Yes -- Yes Hep B Core Total Ab negative -- negative HB Core Total Ab last drawn 07/22/19 -- 07/22/19 Hep B Surface Ab positive -- positive HBsAB last drawn 07/22/19 -- 07/22/19 Hepatitis B Surface Ag negative -- negative HBsAG last drawn 07/22/19 -- 07/22/19 Name of Clinician entering information Kelly Ly RN -- Iman Granados Are you the first or second reviewer? First Reviewer -- First Reviewer Row Name 07/23/19 1500 Technical Checks Prescribed Treatment Time (minutes) 120 Machine Number 235 Chlorine /Chloramine Negative No Alarms Verified Yes NVL Enabled Yes Independent Dialysate check done Yes Dialysate pH 7.2 Dialysate Temperature 96.8 ??F (36 ??C) Machine Conductivity 13.7 Meter Conductivity 13.7 Assessment Data (last 720 hours) HD Pre-Treatment No documentation. Assessment Data (last 720 hours) HD Treatment Row Name 07/25/19 1200 07/25/19 1145 07/25/19 1136 Hemodialysis Intra - treatment BP (!) 172/97 (!) 174/96 (!) 175/98 Pulse 82 72 79 Blood Flow Rate (mL/min) 355 mL/min 0 mL/min 355 mL/min Dialysate Flow Rate (mL/min) 700 ml/min 700 ml/min 700 ml/min Arterial Pressure (mmHg) -146 mmHg -5 mmHg -139 mmHg Venous Pressure (mmHg) 122 mmHg 102 mmHg 132 mmHg Transmembrane Pressure (mmHg) 79 mmHg 74 mmHg 83 mmHg Conductivity (mS/cm) 13.9 mS/cm 13.9 mS/cm 13.8 mS/cm Ultrafiltration Rate (mL/min) 0 mL/min 0 mL/min 600 mL/min Total Liters Processed (L) 83.18 Liters 78.49 Liters 75.5 Liters NS FLush (ml) -- 0 mL 0 mL Access and face visible -- Yes Yes Arteriovenous Lines Secure -- Yes Yes Air detector engaged -- Yes Yes Hemosafe Clip On -- Yes Yes NVL Alarm engaged -- Yes Yes Intra-Hemodialysis Comments Treatment completed. Resting. Tolerating treatment. Row Name 07/25/19 1130 07/25/19 1115 07/25/19 1100 Hemodialysis Intra - treatment BP (!) 209/117 180/83 170/88 Pulse 80 68 70 Blood Flow Rate (mL/min) 355 mL/min 355 mL/min 355 mL/min Dialysate Flow Rate (mL/min) 700 ml/min 700 ml/min 700 ml/min Arterial Pressure (mmHg) -139 mmHg -148 mmHg -150 mmHg Venous Pressure (mmHg) 132 mmHg 123 mmHg 117 mmHg Transmembrane Pressure (mmHg) 83 mmHg 84 mmHg 87 mmHg Conductivity (mS/cm) 13.8 mS/cm 13.8 mS/cm 13.8 mS/cm Ultrafiltration Rate (mL/min) 600 mL/min 600 mL/min 600 mL/min Total Liters Processed (L) 73.48 Liters 68.43 Liters 63.38 Liters NS FLush (ml) 0 mL 0 mL 0 mL Access and face visible Yes Yes Yes Arteriovenous Lines Secure Yes Yes Yes Air detector engaged Yes Yes Yes Hemosafe Clip On Yes Yes Yes NVL Alarm engaged Yes Yes Yes Intra-Hemodialysis Comments BP rechecked. Dialysis in progress. No c/o. Row Name 07/25/19 1045 07/25/19 1030 07/25/19 1015 Hemodialysis Intra - treatment BP (!) 191/95 (!) 186/95 (!) 179/101 Pulse 72 84 82 Blood Flow Rate (mL/min) 355 mL/min 355 mL/min 355 mL/min Dialysate Flow Rate (mL/min) 700 ml/min 700 ml/min 700 ml/min Arterial Pressure (mmHg) -148 mmHg -149 mmHg -150 mmHg Venous Pressure (mmHg) 124 mmHg 122 mmHg 123 mmHg Transmembrane Pressure (mmHg) 85 mmHg 87 mmHg 87 mmHg Conductivity (mS/cm) 13.8 mS/cm 13.9 mS/cm 13.9 mS/cm Ultrafiltration Rate (mL/min) 600 mL/min 600 mL/min 600 mL/min Ultrafiltration Total (ml) -- 1540 mL 1408 mL Total Liters Processed (L) 58.33 Liters 53.29 Liters 48.25 Liters NS FLush (ml) 0 mL 0 mL 0 mL Access and face visible Yes Yes Yes Arteriovenous Lines Secure Yes Yes Yes Air detector engaged Yes Yes Yes Hemosafe Clip On Yes Yes Yes NVL Alarm engaged Yes Yes Yes Intra-Hemodialysis Comments Resting. GI team at bedside. Resting. Row Name 07/25/19 1001 07/25/19 1000 07/25/19 0945 Hemodialysis Intra - treatment BP 187/74 (!) 222/132 (!) 211/121 Pulse 84 84 85 Blood Flow Rate (mL/min) 355 mL/min 355 mL/min 355 mL/min Dialysate Flow Rate (mL/min) 700 ml/min 700 ml/min 700 ml/min Arterial Pressure (mmHg) -148 mmHg -145 mmHg -148 mmHg Venous Pressure (mmHg) 126 mmHg 126 mmHg 120 mmHg Transmembrane Pressure (mmHg) 84 mmHg 84 mmHg 87 mmHg Conductivity (mS/cm) 13.9 mS/cm 13.8 mS/cm 13.9 mS/cm Ultrafiltration Rate (mL/min) 600 mL/min 600 mL/min 600 mL/min Ultrafiltration Total (ml) -- -- 1108 mL Total Liters Processed (L) 43.56 Liters 43.22 Liters 38.18 Liters NS FLush (ml) 0 mL 0 mL 0 mL Access and face visible Yes Yes Yes Arteriovenous Lines Secure Yes Yes Yes Air detector engaged Yes Yes Yes Hemosafe Clip On Yes Yes Yes NVL Alarm engaged Yes Yes Yes Intra-Hemodialysis Comments Resting. P rechecked. Clonidine admin. Row Name 07/25/19 0930 07/25/19 0915 07/25/19 0900 Hemodialysis Intra - treatment BP (!) 208/112 (!) 204/111 (!) 182/105 Pulse 78 81 74 Blood Flow Rate (mL/min) 355 mL/min 355 mL/min 355 mL/min Dialysate Flow Rate (mL/min) 700 ml/min 700 ml/min 700 ml/min Arterial Pressure (mmHg) -171 mmHg -36 mmHg -33 mmHg Venous Pressure (mmHg) 118 mmHg 123 mmHg 132 mmHg Transmembrane Pressure (mmHg) 83 mmHg 83 mmHg 84 mmHg Conductivity (mS/cm) 13.9 mS/cm 14 mS/cm 14 mS/cm Ultrafiltration Rate (mL/min) 600 mL/min 600 mL/min 600 mL/min Ultrafiltration Total (ml) -- -- 678 mL Total Liters Processed (L) 33.15 Liters 27.97 Liters 22.95 Liters NS FLush (ml) 0 mL 0 mL 0 mL Access and face visible Yes Yes Yes Arteriovenous Lines Secure Yes Yes Yes Air detector engaged Yes Yes Yes Hemosafe Clip On Yes Yes Yes NVL Alarm engaged Yes Yes Yes Intra-Hemodialysis Comments Resting. Denies c/o. Resting. Row Name 07/25/19 0845 07/25/19 0830 07/25/19 0815 Hemodialysis Intra - treatment BP (!) 193/104 (!) 186/104 (!) 175/113 Pulse 72 79 86 Blood Flow Rate (mL/min) 355 mL/min 355 mL/min 355 mL/min Dialysate Flow Rate (mL/min) 700 ml/min 700 ml/min 700 ml/min Arterial Pressure (mmHg) -32 mmHg -31 mmHg -28 mmHg Venous Pressure (mmHg) 137 mmHg 139 mmHg 126 mmHg Transmembrane Pressure (mmHg) 80 mmHg 80 mmHg 71 mmHg Conductivity (mS/cm) 14 mS/cm 14 mS/cm 14 mS/cm Ultrafiltration Rate (mL/min) 600 mL/min 600 mL/min 0 mL/min Total Liters Processed (L) 17.65 Liters 12.4 Liters 7.09 Liters NS FLush (ml) 0 mL 0 mL 0 mL Access and face visible Yes Yes Yes Arteriovenous Lines Secure Yes Yes Yes Air detector engaged Yes Yes Yes Hemosafe Clip On Yes Yes Yes NVL Alarm engaged Yes Yes Yes Intra-Hemodialysis Comments FSBS 123 Resting. Resting. Row Name 07/25/19 0800 07/25/19 0730 07/24/19 1100 Hemodialysis Intra - treatment BP (!) 174/92 (!) 196/95 (!) 176/98 Pulse 79 84 79 Blood Flow Rate (mL/min) 355 mL/min 400 mL/min 0 mL/min Dialysate Flow Rate (mL/min) 700 ml/min 600 ml/min 0 ml/min Arterial Pressure (mmHg) -20 mmHg 12 mmHg 4 mmHg Venous Pressure (mmHg) 119 mmHg 127 mmHg 1 mmHg Transmembrane Pressure (mmHg) 78 mmHg 48 mmHg 3 mmHg Conductivity (mS/cm) 14.4 mS/cm 13.5 mS/cm 13.9 mS/cm Ultrafiltration Rate (mL/min) 600 mL/min 0 mL/min 0 mL/min Total Liters Processed (L) 1.78 Liters 0 Liters 46.23 Liters NS FLush (ml) 0 mL -- 0 mL Access and face visible Yes -- Yes Arteriovenous Lines Secure Yes -- Yes Air detector engaged Yes -- Yes Hemosafe Clip On Yes -- Yes NVL Alarm engaged Yes -- Yes Intra-Hemodialysis Comments Medical team at bedside. Patient denies c/o. Ports cleansed, aspirated,and flushed. Dialysis initiated. -- Row Name 07/24/19 1045 07/24/19 1030 07/24/19 1015 Hemodialysis Intra - treatment BP (!) 150/95 (!) 170/103 (!) 181/100 Pulse 78 76 79 Blood Flow Rate (mL/min) 200 mL/min 200 mL/min 200 mL/min Dialysate Flow Rate (mL/min) 400 ml/min 400 ml/min 400 ml/min Arterial Pressure (mmHg) -74 mmHg -70 mmHg -73 mmHg Venous Pressure (mmHg) 51 mmHg 48 mmHg 48 mmHg Transmembrane Pressure (mmHg) 44 mmHg 59 mmHg 60 mmHg Conductivity (mS/cm) 14 mS/cm 14 mS/cm 14 mS/cm Ultrafiltration Rate (mL/min) 0 mL/min 1120 mL/min 1120 mL/min Total Liters Processed (L) 44.34 Liters 1715 Liters 38.43 Liters NS FLush (ml) 0 mL 0 mL 0 mL Access and face visible Yes Yes Yes Arteriovenous Lines Secure Yes Yes Yes Air detector engaged Yes Yes Yes Hemosafe Clip On Yes Yes Yes NVL Alarm engaged Yes Yes Yes Intra-Hemodialysis Comments Dialysis completed. Resting. Resting. Row Name 07/24/19 1000 07/24/19 0945 07/24/19 0930 Hemodialysis Intra - treatment BP (!) 181/97 (!) 183/97 (!) 166/100 Pulse 82 82 79 Blood Flow Rate (mL/min) 200 mL/min 255 mL/min 255 mL/min Dialysate Flow Rate (mL/min) 400 ml/min 600 ml/min 600 ml/min Arterial Pressure (mmHg) -64 mmHg -18 mmHg -20 mmHg Venous Pressure (mmHg) 55 mmHg 77 mmHg 81 mmHg Transmembrane Pressure (mmHg) 58 mmHg 67 mmHg 65 mmHg Conductivity (mS/cm) 14 mS/cm 14 mS/cm 14 mS/cm Ultrafiltration Rate (mL/min) 1120 mL/min 470 mL/min 470 mL/min Ultrafiltration Total (ml) 1312 mL 1020 mL 855 mL Total Liters Processed (L) 35.46 Liters 31.85 Liters 28.02 Liters NS FLush (ml) 0 mL 0 mL 0 mL Access and face visible Yes Yes Yes Arteriovenous Lines Secure Yes Yes Yes Air detector engaged Yes Yes Yes Hemosafe Clip On Yes Yes Yes NVL Alarm engaged Yes Yes Yes Intra-Hemodialysis Comments Alert. Resting Quietly Dialysis in progress. Row Name 07/24/19 0915 07/24/19 0900 07/24/19 0845 Hemodialysis Intra - treatment BP (!) 164/97 (!) 167/91 (!) 167/97 Pulse 76 69 77 Blood Flow Rate (mL/min) 255 mL/min 255 mL/min 255 mL/min Dialysate Flow Rate (mL/min) 600 ml/min 600 ml/min 600 ml/min Arterial Pressure (mmHg) -20 mmHg -18 mmHg -20 mmHg Venous Pressure (mmHg) 76 mmHg 74 mmHg 80 mmHg Transmembrane Pressure (mmHg) 67 mmHg 67 mmHg 64 mmHg Conductivity (mS/cm) 14 mS/cm 14 mS/cm 14 mS/cm Ultrafiltration Rate (mL/min) 470 mL/min 470 mL/min 470 mL/min Ultrafiltration Total (ml) -- 660 mL -- Total Liters Processed (L) 24.08 Liters 20.31 Liters 16.46 Liters NS FLush (ml) 0 mL 0 mL 0 mL Access and face visible Yes Yes Yes Arteriovenous Lines Secure Yes Yes Yes Air detector engaged Yes Yes Yes Hemosafe Clip On Yes Yes Yes NVL Alarm engaged Yes Yes Yes Intra-Hemodialysis Comments Resting. Resting. ID MD at bedside. Row Name 07/24/19 0830 07/24/19 0815 07/24/19 0800 Hemodialysis Intra - treatment BP (!) 175/92 (!) 158/98 (!) 164/92 Pulse 73 71 70 Blood Flow Rate (mL/min) 255 mL/min 255 mL/min 255 mL/min Dialysate Flow Rate (mL/min) 600 ml/min 600 ml/min 600 ml/min Arterial Pressure (mmHg) -20 mmHg -23 mmHg -8 mmHg Venous Pressure (mmHg) 79 mmHg 67 mmHg 75 mmHg Transmembrane Pressure (mmHg) 65 mmHg 68 mmHg 63 mmHg Conductivity (mS/cm) 14 mS/cm 14 mS/cm 14 mS/cm Ultrafiltration Rate (mL/min) 470 mL/min 470 mL/min 470 mL/min Total Liters Processed (L) 12.62 Liters 8.85 Liters 5.08 Liters NS FLush (ml) 0 mL 0 mL 0 mL Access and face visible Yes Yes Yes Arteriovenous Lines Secure Yes Yes Yes Air detector engaged Yes Yes Yes Hemosafe Clip On Yes Yes Yes NVL Alarm engaged Yes Yes Yes Intra-Hemodialysis Comments Resting. Denies c/o. Patient resting. Row Name 07/24/19 0745 07/24/19 0715 07/23/19 1745 Hemodialysis Intra - treatment BP 152/90 127/83 -- Pulse 71 81 76 Blood Flow Rate (mL/min) 255 mL/min 400 mL/min -- Dialysate Flow Rate (mL/min) 600 ml/min 0 ml/min -- Arterial Pressure (mmHg) -10 mmHg 2 mmHg -- Venous Pressure (mmHg) 67 mmHg 1 mmHg -- Transmembrane Pressure (mmHg) 67 mmHg 49 mmHg -- Conductivity (mS/cm) 14.1 mS/cm 13.9 mS/cm -- Ultrafiltration Rate (mL/min) 470 mL/min 0 mL/min -- Ultrafiltration Total (ml) -- -- 400 mL Total Liters Processed (L) 1.22 Liters 0 Liters -- NS FLush (ml) 0 mL -- 200 mL Access and face visible Yes -- Yes Arteriovenous Lines Secure Yes -- Yes Air detector engaged Yes -- Yes Hemosafe Clip On Yes -- Yes NVL Alarm engaged Yes -- Yes Intra-Hemodialysis Comments Physician at bedside. Patient arrived to the unit in a hospital bed viahospital transport. Ports cleansed, aspirated, and flushed without difficulty. Patient denies c/o. Treatment initiated without difficulty. tx completed. blood returned. reposition cuff 155/86 76 Row Name 07/23/19 1730 07/23/19 1715 07/23/19 1700 Hemodialysis Intra - treatment BP 140/83 143/86 (!) 131/96 Pulse 74 73 73 Blood Flow Rate (mL/min) 200 mL/min 200 mL/min 200 mL/min Dialysate Flow Rate (mL/min) 400 ml/min 400 ml/min 400 ml/min Arterial Pressure (mmHg) -56 mmHg -55 mmHg -67 mmHg Venous Pressure (mmHg) 54 mmHg 58 mmHg 55 mmHg Transmembrane Pressure (mmHg) 52 mmHg 46 mmHg 47 mmHg Conductivity (mS/cm) 13.9 mS/cm 14 mS/cm 14 mS/cm Ultrafiltration Rate (mL/min) 200 mL/min 200 mL/min 200 mL/min Ultrafiltration Total (ml) 325 mL 289 mL 226 mL Total Liters Processed (L) 18.8 Liters 15.87 Liters 12.88 Liters NS FLush (ml) 0 mL 0 mL 0 mL Access and face visible Yes Yes Yes Arteriovenous Lines Secure Yes Yes Yes Air detector engaged Yes Yes Yes Hemosafe Clip On Yes Yes Yes NVL Alarm engaged Yes Yes Yes Intra-Hemodialysis Comments talking to staff talking to staff talking to staff Row Name 07/23/19 1645 07/23/19 1630 07/23/19 1615 Hemodialysis Intra - treatment BP 128/79 -- 135/88 Pulse 72 74 72 Blood Flow Rate (mL/min) 200 mL/min -- 205 mL/min Dialysate Flow Rate (mL/min) 400 ml/min -- 400 ml/min Arterial Pressure (mmHg) -52 mmHg -- -49 mmHg Venous Pressure (mmHg) 56 mmHg -- 65 mmHg Transmembrane Pressure (mmHg) 50 mmHg -- 51 mmHg Conductivity (mS/cm) 14 mS/cm -- 14 mS/cm Ultrafiltration Rate (mL/min) 200 mL/min -- 200 mL/min Ultrafiltration Total (ml) 185 mL 110 mL 55 mL Total Liters Processed (L) 10.01 Liters -- 4.19 Liters NS FLush (ml) 0 mL 0 mL -- Access and face visible Yes Yes Yes Arteriovenous Lines Secure Yes Yes Yes Air detector engaged Yes Yes Yes Hemosafe Clip On Yes Yes Yes NVL Alarm engaged Yes Yes Yes Intra-Hemodialysis Comments talking with staff talking with staff talking with staff, denies discomfort Row Name 07/23/19 1602 Hemodialysis Intra - treatment BP 148/76 Pulse 78 Blood Flow Rate (mL/min) 205 mL/min Dialysate Flow Rate (mL/min) 400 ml/min Arterial Pressure (mmHg) -57 mmHg Venous Pressure (mmHg) 59 mmHg Transmembrane Pressure (mmHg) 51 mmHg Conductivity (mS/cm) 14.2 mS/cm Ultrafiltration Rate (mL/min) 200 mL/min Ultrafiltration Total (ml) 10 mL Total Liters Processed (L) 1.59 Liters NS FLush (ml) 200 mL Access and face visible Yes Arteriovenous Lines Secure Yes Air detector engaged Yes Hemosafe Clip On Yes NVL Alarm engaged Yes Intra-Hemodialysis Comments TX initiated w/o diffilculty. Dr. Tse Assessment Data (last 720 hours) HD Post-Treatment Row Name 07/25/19 1200 07/24/19 1100 07/24/19 1045 Post-Hemodialysis Assessment Post-Treatment procedures Blood returned;Gentamicin/ 4% Citrate Dwell;Catheter clamped and capped Blood returned;Gentamicin/ 4% Citrate Dwell;Catheter clamped and capped -- Prescribed Treatment Time (minutes) 240 180 -- Duration of Treatment (minutes) 240 minutes 180 minutes -- Dialyzer Clearance Lightly streaked Lightly streaked -- Rinseback Volume (mL) 400 mL 700 mL -- Hemodialysis Output (mL) 2400 mL 1900 mL -- Net fluid removal (ml) 2000 mL 1300 mL -- Temp 97.4 ??F (36.3 ??C) 97.6 ??F (36.4 ??C) -- Temp src Oral Oral -- Hemodialysis Weights Dry Weight -- -- To be determined. -- Post Weight 287 lb 11.2 oz (130.5 kg) 295 lb 3.1 oz (133.9 kg) -- Post Weight Source Standing Scale Standing Scale -- HD Catheter Dual Lumen (Vas Cath) Tunneled Right Internal Jugular Properties Placement Date: 07/23/19 Placement Time: 1018 Pt location at time of line placement: IR Conditions of line placement: Sterile Inserted by: kiesah burton Access Type: Dual Lumen (Vas Cath) Description: Tunneled , chasidy. joan. si chronic catheter kit. ex: lot: [id number] Orientation: Right Access Location: Internal Jugular Size (Maltese): -- , 14.5 Catheter fully inserted (hub at skin): yes Proximal(Red) Lumen Status Capped-Citrate Locked Capped-Citrate Locked -- Medial(Blue) Lumen Status Capped-Citrate Locked Capped-Citrate Locked -- Respiratory Respiratory Pattern Regular;Easy -- Regular;Unlabored Chest Assessment Chest expansion symmetrical -- Chest expansion symmetrical Bilateral Breath Sounds Clear;Diminished -- Diminished Edema RLE Edema +1 -- +1 LLE Edema +1 -- +1 Cardiac Cardiac (WDL) -- -- WDL Row Name 07/23/19 1800 Post-Hemodialysis Assessment Post-Treatment procedures Blood returned;Gentamicin/ 4% Citrate Dwell;Catheter clamped and capped Prescribed Treatment Time (minutes) 120 Duration of Treatment (minutes) 120 minutes Dialyzer Clearance Clear Total Liters Processed (L) 23.85 Liters Rinseback Volume (mL) 200 mL Hemodialysis Output (mL) 400 mL Net fluid removal (ml) 400 mL BP 155/86 Pulse 76 Temp 97.8 ??F (36.6 ??C) Temp src Oral Post-Hemodialysis Comments pt tolerated tx well. denies discomfort. eating food. Hemodialysis Weights Pre Weight 299 lb 6.2 oz (135.8 kg) Pre Weight Source Standing Scale Post Weight 299 lb 6.2 oz (135.8 kg) Post Weight Source Standing Scale HD Catheter Dual Lumen (Vas Cath) Tunneled Right Internal Jugular Properties Placement Date: 07/23/19 Placement Time: 1018 Pt location at time of line placement: IR Conditions of line placement: Sterile Inserted by: kiesha burton Access Type: Dual Lumen (Vas Cath) Description: Tunneled , covidien. palindrome. si chronic catheter kit. ex: lot: [id number] Orientation: Right Access Location: Internal Jugular Size (Maltese): -- , 14.5 Catheter fully inserted (hub at skin): yes Proximal(Red) Lumen Status Capped-Citrate Locked Medial(Blue) Lumen Status Capped-Citrate Locked Distal (Infusion) Lumen Status Blood return noted;Citrate Locked Dressing Status Clean;Dry;Intact Dressing Intervention New dressing Dressing Change Due 07/30/19 Respiratory Respiratory (WDL) WDL Respiratory Pattern Regular;Easy;Unlabored Chest Assessment Chest expansion symmetrical Bilateral Breath Sounds Clear;Expiratory wheezes Cough None Edema Edema Generalized;Right lower extremity;Left lower extremity Generalized Edema +1 LLE Edema +1 Cardiac Cardiac (WDL) WDL Cardiac Regularity Regular Jugular Venous Distention (JVD) No Cardiac Symptoms None Integumentary Integumentary (WDL) X Skin Color Appropriate for ethnicity Skin Condition/Temp Warm Skin Integrity Surgical wound Skin Location rt tridialysis cath Skin Turgor Non-tenting Gastrointestinal Gastrointestinal (WDL) WDL Last BM Date 07/21/19 Abdomen Inspection Soft;Distended Bowel Sounds (All Quadrants) Active Palpation/Percussion Soft Passing Flatus No documented in this encounter Discharge Instructions * Discharge Instructions* Keon Brown MD - 07/25/2019 3:56 PM EST Dear Leoncio Rollins, You were in the hospital to treat your fever and sore throat (pharyngitis). We treated this with IVantibiotics and an antiviral called valcyclovir. Continue your home medications. Medication changes: - STOP taking tacrolimus - START cellcept New medicines: - IV cefazolin at dialysis until 08/01 - oral cyclosporine 50 mg twice a day - oral valacyclovir 500 mg twice a day until 08/06 - oral entecavir once a week Before you leave, here are some very important things that you need to know: - next lab draws due Monday! Talk with your coordinator - please get repeat cyclosporine level drawn, ideally before you take your morning or evening dose - please get weekly CMV level drawn for the next 2 weeks. This will need to be faxed to infectious disease: [phone] - follow-up with hepatology. If they do not schedule by Monday call - follow-up with nephrology. Call [phone] - Return to the ED or urgent care clinic if you experience fevers, abdominal pain, more sore throat, pain swallowing/difficulty swallowing, or are unable to take your meds Don't miss these appointments: Future Appointments Date Time Provider Department Center 07/25/2019 2:00 PM Aris Moctezuma MD [facility] Dialysis Center: [address] [place] [address] Chair time: MWF @ 11:15 AM Thank you for letting us take care of you. We wish you the best! Sincerely, KEON BROWN MD documented in this encounter Medications at Time [...] mg total) by mouth if needed. 8 iron sucrose (VENOFER) 200 mg iron/10 mL Soln Intravenous 15 mLs (300 mg total) once for 1 dose. To administer with next hemodialysis. 15 mL 9 07/25/20 19 blood sugar diagnostic Strp Use to test blood sugar up to 4 times a day. Diagnosis for use: E 9.65. For use with One Touch Verio meters. 150 strip 5 8 03/18/20 22 blood-glucose meter (ONETOUCH VERIO SYSTEM) [facility] [place] as instructed. 1 each 8 03/18/20 22 carvedilol (COREG) 25 MG tablet Take 2 tablets (50 mg total) by mouth 2 times a day with meals. 120 tablet 5 8 03/12/20 20 cefazolin (ANCEF) IVPB 2g every Monday, 2g every Monday, 3g every Monday. To administer with dialysis. Give as IV piggyback in appropriate diluent and volume as specified by receiving facility. 9 07/31/20 19 cloNIDine HCl (CATAPRES) 0.1 MG tablet Take [...] use 2 spray(s) in each nostril daily 9 09/19/19 20 gabapentin (NEURONTIN) 100 MG [...] 8 03/18/20 22 lidocaine (LIDODERM) 5 % Apply 1 patch onto affected area once a day. Leave patch on for 12 hours then remove for 12 hours. 30 patch 9 07/30/20 19 mycophenolate (CELLCEPT) 250 mg capsule Take 3 capsules (750 mg total) by mouth 2 times a day. 0 9 07/31/20 19 ondansetron (ZOFRAN-ODT) 4 MG disintegrating tablet Take [...] instructed. 150 each 5 8 11/11/19 20 phenol (SORE THROAT) 1.4 % SprA Use 1 to 2 sprays in throat every 2 hours as needed. 177 mL 9 07/30/20 19 polyethylene glycol (MIRALAX) 17 gram packet Take 17 g by mouth 2 times a day as needed. 100 packet 9 06/25/20 20 valACYclovir (VALTREX) 500 MG tablet Take 1 tablet (500 mg total) by mouth daily for 12 days. 12 tablet 07/25/2019 2:13 PM EST 9 07/31/20 19 documented as of this encounter Progress Notes * Patricia Romero, PT - 07/25/2019 3:31 PM EST Physical Therapy Treatment and Discharge Name: Leoncio Rollins : 1975 Attending Physician: Marcelino Fox MD Admission Diagnosis: HYPERTENSION / S/P LIVER TXPLANT Date: 07/25/2019 Room: 8034/U8034 Reviewed Pertinent hospital course: Yes Hospital Course PT/OT: 44 y.o. male with a h/o JC on CPAP, CKD, KIM Cirrhosis with EV s/p??liver transplant??09/2017 who presents as direct admit from OSH (admitted 07/19) due to concern for infection and CARMEN. Reported falls at [facility] out of his chair 4-5 times. Cr 7 (baseline 4-5), Hbg 6.7, CXR- neg 07/20, CT A/P- no acute findings 07/21, HCT- no acute ICH 07/21 Activity Level: Activity as tolerated Assessment Pt demonstrated independence with all functional mobility. Pt issued SPC to increase balance and independence with gait training. Recommend outpatient PT to further balance, strength and endurance training. Pt reports no concerns regarding mobility and returning home. Pt has no further acute skilled PT needs, will d/c from therapy. Recommendation Recommendation: Home with intermittent assistance, Outpatient PT Equipment Recommended: Issued(SPC) Outcome Measures AM-PAC 6 Clicks Basic Mobility Inpatient Short Form: PT 6 Clicks Score: 24 Mobility Recommendations for Staff Patient ability: Patient ambulates in hallway Assist needed: with 1 person assist Equipment/ Precautions needed: Requires assistive device Requires Assistive Device: Single-point cane Cognition Overall Cognitive Status: Within Functional Limits Cognitive Assessment: Orientation Level;Behavior Orientation Level: Oriented X4 Behavior: Appropriate;Cooperative;Motivated Comments: I would like a cane for my balance, what do you think? Pain Pain Score: 0-No pain Mobility Transfers Sit to Stand: Independent Gait Distance: 60' Level of Assistance: Modified independent Assistive Device: Straight cane Gait Characteristics: Steady;No LOB Balance Sitting - Static: Independent Sitting - Dynamic: Independent Standing - Static: Independent Standing - Dynamic: Modified Independnet;With Assistive Device Standing-Dynamic Assistance Device: Single-point cane Pt declined further gait training 2/2 independence and no further concerns Position after Treatment and Safety Handoff Position after therapy session: Chair Details: Call light/ needs within reach, visitor present Alarms: Chair Alarms Status: Unchanged from previous setting Goals Goals Met: Sit to stand, Bed to chair Goals to be met by: 07/30/19 Patient will transition from supine to sit: Independent Patient will transition from sit to supine: Independent Patient will transfer from sit to stand: Independent Patient will transfer bed/chair: Independent Patient will ambulate: Independent, distance (in feet) Distance (in feet): 100' Patient will go up / down stairs: Will tolerate assessment Assisted Goal : =STG Patient Stated Goal #1: To increase balance Collaborated with: Patient Patient/Family Education Educated patient on the role of physical therapy, goals, plan of care, importance of increased activity, discharge recommendations, home exercise program, transfer training and gait training and fallprevention strategies, including use of call light; patient verbalized understanding and demonstrated understanding. Plan Patient to be discharged from inpatient PT caseload at this time as pt has no acute impairments requiring skilled PT intervention. Please re-refer if needs arise. Patricia Romero, PT, DPT Physical Therapist Pager #[phone] Dept [phone] Time Start Time: 1427 Stop Time: 1451 Time Calculation (min): 24 min Charges $Gait/Mobility: 8-22 mins $Therapeutic Activity: 1 unit Problem List Patient Active Problem List Diagnosis [...] kidney disease) stage 3, GFR 30-59 ml/min (CMS Dx) ??? Jzhow-mx-jgriwby kidney injury (CMS Dx) ??? Metabolic acidosis ??? Group C streptococcal infection Past Medical History Past Medical History: Diagnosis [...] PROCEDURE 10/2016 ??? TIPS Revision 04/2017 * Dav Johnson MD - 07/25/2019 1:35 PM EST INFECTIOUS DISEASE PROGRESS NOTE 07/25/2019 1:32 PM Leoncio Rollins is a 44 y.o. male patient. Hospital Day: 6 Chief Complaint/Reason for Follow-up: bacteremia Subjective: Throat pain much better, ulcers continue to improve Scope without esophagitis Afebrile Review of Systems Constitutional: Negative for chills and fever. HENT: Positive for mouth sores. Negative for sore throat. Respiratory: Negative for cough and shortness of breath. Cardiovascular: Positive for chest pain. Negative for palpitations. Gastrointestinal: Negative for abdominal pain, diarrhea and vomiting. Skin: Negative for rash and wound. Objective: Vital signs: Vitals: 07/25/19 1244 BP: (!) 165/103 Pulse: 86 Resp: 18 Temp: 97.9 ??F (36.6 ??C) SpO2: 92% Temp last 24 hours:Temp (24hrs), Av.9 ??F (36.6 ??C), Min:97.4 ??F (36.3 ??C), Max:98.8 ??F (37.1 ??C) Scheduled Meds: ??? aspirin 81 mg Oral [...] NPH 6 Units Subcutaneous Nightly (2099) ??? lidocaine 1 patch Transdermal Q24H ??? NIFEdipine 90 mg Oral BID ??? terazosin 10 mg Oral Nightly (2099) ??? valACYclovir 500 mg Oral Daily 0900 Continuous Infusions: PRN Meds:acetaminophen, aluminum & magnesium hydroxide-simethicone AND lidocaine HCl, benzocaine-menthol, dextrose 10% in water OR dextrose 10% in water, gabapentin, glucose, melatonin, ondansetron, phenol, polyethylene glycol, traMADol Intake/Output last 3 shifts: Date 07/24/19699 - 07/25/1965807/25/19 07 - 07/26/19 0659 Shift 3096-4894 1900-6265 2466-1955 24 Hour Total 9123-6910 7061-1972 3777-6746 24 Hour Total INTAKE P.O. 120 120 240 P.O. 120 120 240 Shift Total(mL/kg) 120(0.9) 120(0.9) 240(1.8) OUTPUT Urine(mL/kg/hr) 200(0.2) 40(0) 240(0.1) Urine 200 40 240 Urine Occurrence 1 x 1 x 2 x Other 1300 1300 1999 1999 Net fluid removal (ml) 1300 1300 1999 1999 Stool Stool Occurrence 1 x 1 x Shift Total(mL/kg) 1500(11.4) 40(0.3) 1540(11.7) 1999(15.2) 1999(15.2) Weight (kg) 131.5 131.5 131.5 131.5 131.5 131.5 131.5 131.5 Physical Exam Constitutional: General: He is not in acute distress. HENT: Mouth/Throat: Comments: 2 ulcers on posterior hard palate without yellow sloughing today, appear healing Eyes: General: No scleral icterus. Pupils: Pupils are equal, round, and reactive to light. Cardiovascular: Rate and Rhythm: Normal rate. Heart sounds: No murmur. Pulmonary: Breath sounds: No wheezing or rales. Abdominal: General: There is no distension. Palpations: Abdomen is soft. Skin: General: Skin is warm and dry. Neurological: Mental Status: He is alert. Psychiatric: Mood and Affect: Mood normal. Behavior: Behavior normal. Labs: Lab 07/25/19 0640 WBC 4.2 HEMOGLOBIN 8.9* HEMATOCRIT 27.3* MEAN CORPUSCULAR VOLUME 82.6 PLATELETS 239 Lab 07/25/19 0640 SODIUM 141 POTASSIUM 4.5 CHLORIDE 103 CO2 26 BUN 27* CREATININE 4.93* GLUCOSE 128* CALCIUM 7.6* MAGNESIUM 2.0 PHOSPHORUS 3.7 Lab 07/24/19 0328 ALK PHOS 79 AST 13 ALT 6* BILIRUBIN TOTAL 0.2 BILIRUBIN DIRECT 0.09 Lab 07/19/19 2357 PROTHROMBIN TIME 15.0 INR 1.1 Assessment/Plan: 44 y.o. M s/p OLT 09/2017 admitted for sore throat and falls, found to have bacteremia and oral ulcerations 1. Group C strep bacteremia - continue Ceftriaxone 2g IV q24 while inpatient - anticipate a 2 week course, with transition to Cefazolin 2g/2g/3g with HD at d/c, end date 08/01/19 - presume source is the mucositis, oral ulceration - CT A/P and TTE negative for source 2. Oral ulcers - much improved today - HSV swab negative - Valtrex 500mg daily x 10 days, end 07/31/19 - could still be CMV, swab PCR pending (Valtrex at high doses can treat CMV as well) - EGD biopsy pending 3. CMV viremia - unclear significance, PCR weekly x2 to ensure not worsening since the high dose Valtrex he got could have masked it - swabbed ulcers for CMV as above Dav Johnson MD 07/25/[phone] * Enrike Mccracken MD - 07/25/2019 10:10 AM EST Transplant Nephrology Consult - Progress Note Patient: Leoncio Rollins [id number] Date of Admit: 07/19/2019. LOS: 6 days. Referring physician: Marcelino Fox MD Date: 07/25/2019 Reason for Consult Acute Kidney Injury (CARMEN) History of Present Illness Leoncio Rollins is a 44 y.o. male with a past medical history of JC on CPAP, CKD, KIM Cirrhosis with EV s/p??liver transplant??09/2017 who presented on 07/19/2019 with Fevers. Nephrology is consulted for CARMEN. Leoncio Rollins reports that he feels well; except only symptoms being anorexia and some lower abdominal swelling. He is sent here from [place] with fevers. He is still fevering all day today; which started yesterday. He is anemic and getting pRBC. He had multiple falls recently and landed on hisleft abdomen. Of note, he was recently admitted 06/2019 for CARMEN with Cr 4.8 and was transferred to for furtherevaluation. Pt was admitted in 01/2019 for fluid overload and had 13gm of proteinuria. Kidney biopsywas offered but pt refused at that time. Cr was around mid 3s over this year. Pt denies exposure toNSAIDs. Contrast exposure: denies Nephrotoxic drug exposure: denies nsaids Hypotensive episodes: none known Interval History: Seen on HD. Hypertensive. Nutrition: Diet Orders Diet regular starting at 07/24 1414 Access: Patient Lines/Drains/Airways Status Active Epidural Line / PICC Line / PIV Line / ART Line / Line / CVC Line Name: Placement date: Placement time: Site: Days: Peripheral IV 07/20/19 Right Antecubital 07/20/19 1503 Antecubital 4 HD Catheter Dual Lumen (Vas Cath) Tunneled Right Internal Jugular 07/23/19 1018 Internal Jugular 1 NHSN Device Days (06/25/2019 to 07/24/2019) Central line: 2 Urinary catheter: 0 Code Status: Full Code Review of Systems (Focused) Significant as listed in HPI otherwise General: No weight loss; No fever; No chills ENT : No ear pain, No hearing loss Skin: No itching; No rashes Head/Eyes: No headache; No visual changes ENT: No hearing changes; No nasal congestion Respiratory: No dyspnea; No cough; No hemoptysis CV: No chest pain; No ankle edema GI: No nausea / vomiting; No constipation; No diarrhea; No melena; +abdominal fullness : No dysuria; No hematuria; No frequency. No urinary urgency; No hesitancy; No weak stream. Past Medical History Past Medical History: Diagnosis [...] ??? Diabetes Sister Social History Social History Tobacco Use ??? Smoking status: Never Smoker ??? Smokeless tobacco: Never Used Substance Use Topics ??? Alcohol use: No Medications Prior to Admission Medicationss: Medications Prior to Admission Medication Sig Dispense Refill Last Dose ??? aspirin 81 MG chewable tablet Chew 1 tablet (81 mg total) by mouth daily with breakfast. 30 tablet 5 07/19/2019 at Unknown time ??? blood sugar diagnostic Strp Use to test blood sugar up to 4 times a day. Diagnosis for use: E 9.65. For use with One Touch Verio meters. 150 strip 5 07/19/2019 at Unknown time ??? blood-glucose meter (ONETOUCH VERIO SYSTEM) [facility] Use as instructed. 1 each 0 07/19/2019 at Unknown time ??? carBAMazepine (TEGRETOL) 200 mg tablet Take 200 mg by mouth at bedtime. 07/18/2019 at Unknown time ??? carvedilol (COREG) 25 MG tablet Take 2 tablets (50 mg total) by mouth 2 times a day with meals.120 tablet 5 07/19/2019 at Unknown time ??? cloNIDine HCl (CATAPRES) 0.1 MG tablet Take 1 tablet (0.1 mg total) by mouth if needed. (Patient taking differently: Take 0.1 mg by mouth 2 times a day. ) 60 tablet 0 07/19/2019 at Unknown time ??? doxazosin (CARDURA) 8 MG tablet 8 mg 2 times a day. 07/19/2019 at Unknown time ??? entecavir (BARACLUDE) 0.5 MG tablet Take 1 tablet (0.5 mg total) by mouth every 72 hours. 15 tablet 11 07/19/2019 at Unknown time ??? ergocalciferol (VITAMIN D2) 50,000 unit capsule Take 50,000 Units by mouth once a week. 07/19/2019 at Unknown time ??? famotidine (PEPCID) 20 MG tablet Take 20 mg by mouth daily. 07/18/2019 at Unknown time ??? fluticasone propionate (FLONASE) 50 mcg/actuation nasal spray use 2 spray(s) in each nostril daily 11 07/18/2019 at Unknown time ??? gabapentin (NEURONTIN) 100 MG capsule Take 4 capsules (400 mg total) by mouth daily. 180 capsule 0 07/18/2019 at Unknown time ??? insulin glulisine U-100 (APIDRA U-100 INSULIN) 100 unit/mL injection Inject 5 Units subcutaneously 3 times a day with meals. 10 mL 0 07/19/2019 at Unknown time ??? insulin NPH isoph U-100 human (HUMULIN N NPH INSULIN KWIKPEN) 100 unit/mL (3 mL) InPn Inject subcutaneously 20 units in the AM and 8 units in the PM. 15 mL 5 07/19/2019 at Unknown time ??? lancets ([employer] Entertainment[employer]CH DELICA LANCETS) 33 gauge [facility] Use 1 strip as directed 4 times daily before meals and at bedtime. 150 each 5 07/19/2019 at Unknown time ??? mycophenolate (CELLCEPT) 250 mg capsule Take 3 capsules (750 mg total) by mouth 2 times a day. 180 capsule 5 07/19/2019 at Unknown time ??? NIFEdipine (PROCARDIA-XL) 90 MG (OSM) 24 hr tablet Take 90 mg by mouth 2 times a day. 07/19/2019 at Unknown time ??? ondansetron (ZOFRAN-ODT) 4 MG disintegrating tablet every 8 hours as needed. Past Week at Unknown time ??? pen needle, diabetic 32 gauge x Ndle Use as directed to inject insulin 4 times daily. 150each 5 07/19/2019 at Unknown time ??? pen needle, diabetic 32 gauge x Ndle For use with insulin pen. Use as instructed. 150 each 5 07/19/2019 at Unknown time ??? polyethylene glycol (MIRALAX) 17 gram packet Take 17 g by mouth 2 times a day as needed. 100 packet 0 Past Week at Unknown time ??? sodium bicarbonate 650 MG tablet Take 2 tablets (1,300 mg total) by mouth 2 times a day. 120 tablet 0 07/19/2019 at Unknown time ??? tacrolimus ER, 24 HR, (ENVARSUS XR) 1 mg Tb24 Take 2 tablets (2 mg total) by mouth daily. Per Hepatology recommendations 60 tablet 5 07/19/2019 at Unknown time ??? torsemide (DEMADEX) 20 MG tablet Take 1 tablet (20 mg total) by mouth daily. 30 tablet 5 07/19/2019 at Unknown time Scheduled Medications: ??? aspirin 81 mg Oral Daily with [...] ??? valACYclovir 500 mg Oral Daily 0900 Continuous Infusions: PRN medications: acetaminophen, aluminum & magnesium hydroxide-simethicone AND lidocaine HCl, benzocaine-menthol, dextrose 10% in water OR dextrose 10% in water, gabapentin, glucose, melatonin, ondansetron, phenol, polyethylene glycol, traMADol Allergies: Allergies Allergen Reactions ??? Codeine Sulfate Hyper ??? Codeine Other (See Comments) Becomes hyper Vital Signs Temp: [97.6 ??F (36.4 ??C)-98.8 ??F (37.1 ??C)] 98.8 ??F (37.1 ??C) Heart Rate: [72-87] 84 Resp: [16-18] 18 BP: (150-222)/(68-132) 187/74 Patient Vitals for the past 4 hrs: BP Temp Temp src Pulse Resp 07/25/19 1001 187/74 -- -- 84 -- 07/25/19 1000 (!) 222/132 -- -- 84 -- 07/25/19 0945 (!) 211/121 -- -- 85 -- 07/25/19 0930 (!) 208/112 -- -- 78 -- 07/25/19 0915 (!) 204/111 -- -- 81 -- 07/25/19 0900 (!) 182/105 -- -- 74 -- 07/25/19 0845 (!) 193/104 -- -- 72 -- 07/25/19 0830 (!) 186/104 -- -- 79 -- 07/25/19 0815 (!) 175/113 -- -- 86 -- 07/25/19 0800 (!) 174/92 -- -- 79 -- 07/25/19 0730 (!) 196/95 98.8 ??F (37.1 ??C) Oral 84 18 Wt Readings from Last 3 Encounters: 07/24/19 (!) 290 lb (131.5 kg) 07/01/19 (!) 292 lb 14.4 oz (132.9 kg) 02/28/19 (!) 282 lb (127.9 kg) Admit Wt: Weight: (!) 302 lb 1.6 oz (137 kg) Todays Wt: Weight: (!) 290 lb (131.5 kg) Estimated body mass index is 45.42 kg/m?? as calculated from the following: Height as of this encounter: 5' 7 (1.702 m). Weight as of this encounter: 290 lb (131.5 kg). Date 07/24/19699 - 07/25/1960 07/25/19 07 - 07/26/19 0659 Shift 7653-3401 6180-7180 6046-0495 24 Hour Total 2209-1872 5435-7512 9801-4722 24 Hour Total INTAKE P.O. 120 120 240 P.O. 120 120 240 Shift Total(mL/kg) 120(0.9) 120(0.9) 240(1.8) OUTPUT Urine(mL/kg/hr) 200(0.2) 40(0) 240(0.1) Urine 200 40 240 Urine Occurrence 1 x 1 x 2 x Other 1300 1300 Net fluid removal (ml) 1300 1300 Stool Stool Occurrence 1 x 1 x Shift Total(mL/kg) 1500(11.4) 40(0.3) 1540(11.7) Weight (kg) 131.5 131.5 131.5 131.5 131.5 131.5 131.5 131.5 RESPIRATORY Ventilator Setting: No data found. Fi02 Requirement: No data found. Last ABG: Lab Results Component Value Date PCO2 34 (L) 10/09/2017 [id number] 97.6 10/09/2017 Physical Exam General: A&Ox3, NAD, laying comfortably in bed HEENT: normocephalic, atraumatic Neck: neck supple and symmetrical Cardiac: regular rate and rhythm, no M/R/G, normal S1 and S2 Pulm: aerating well, bilaterally CTA, no crackles, no wheezes, no rhonchi Abd: normal bowel sounds, soft, non-tender to palpation, +obese, +L scar Extremities: atraumatic, no cyanosis, no LE edema Skin: atraumatic, no rashes or lesions Neuro: moving all extremities without difficulty, grossly intact Laboratory Data Recent Labs 07/23/19 0414 07/25/19 0640 WBC 4.4 4.2 HGB 7.3* 8.9* HCT 22.4* 27.3* MCV 83.0 82.6 PLT 146 239 Recent Labs 07/23/19 0414 07/24/19 0328 07/25/19 0640 NA 139 139 141 K 4.4 4.4 4.5 CL 103 103 103 CO2 21 24 26 BUN 64* 52* 27* CREATININE 8.86* 6.40* 4.93* GLUCOSE 107* 156* 128* CALCIUM 7.2* 7.1* 7.6* MG 2.0 1.9 2.0 PHOS 5.8* 4.7 3.7 ANIONGAP 15 12 12 No results for input(s): INR, PROTIME, PTT in the last 72 hours. FSBS Range: Recent Labs 07/22/19 2135 07/23/19 1129 07/23/19 1531 07/23/19 1753 07/23/19 1951 07/24/19 0927 07/24/19 1250 07/24/19 1527 07/24/19 2121 07/25/19 0842 POCGMD 159* 113* 90 74 115* 123* 118* 115* 140* 123* Recent Labs 07/24/19 0328 ALT 6* AST 13 ALKPHOS 79 BILITOT 0.2 Cardiac Labs: No results for input(s): CKTOTAL, CKMB, CKMBINDEX, TROPONINI, BNP, NTPROBNP in the last 72 hours. No results for input(s): CHOLTOT, TRIG, HDL, CHOLHDL, LDL in the last 72 hours. Invalid input(s): VLDCHOL Lab Results Component Value Date HGBA1C 6.8 (A) 07/18/2019 HGBA1C 7.2 (A) 05/15/2019 HGBA1C 7.4 (H) 12/13/2018 Nephro Labs: No results for input(s): COLORU, CLARITYU, PH, PROTEINUA, PHUR, LABSPEC, GLUCOSEU, BLOODU, LEUKOCYTESUR, NITRITE, BILIRUBINUR, UROBILINOGEN, RBCUA, WBCUA, BACTERIA, AMORPHOUS, CRYSTAL, CASTS in the last 72 hours. Invalid input(s): KEYTONESU No results for input(s): NAUR, KUR, CLUR in the last 72 hours. Invalid input(s): CO2UR, CRUR No results found for: MICROALBUR, [id number] Lab Results Component Value Date PTH 164.0 (H) 01/14/2019 CALCIUM 7.6 (L) 07/25/2019 PHOS 3.7 07/25/2019 Lab Results Component Value Date [id number] 15.8 (L) 01/14/2019 Anemia Labs: Lab Results Component Value Date IRON 24 (L) 07/21/2019 TIBC 202 (L) 07/21/2019 FERRITIN 433.9 (H) 07/21/2019 Lab Results Component Value Date [id number] 499 07/22/2019 Sepsis Marker Labs: No results for input(s): LACTATE in the last 72 hours. Lab Results Component Value Date FIBRINOGEN 454 (H) 07/20/2019 No results for input(s): TEGANGLE, TEGKTIME, [id number], TEGMAXAMPL, TEGRTIME, CBMZ in the last 72 hours. No results for input(s): ESR, CRP in the last 72 hours. No results found for: ESR, CRP Infectious Labs Urine cx: Lab Results Component [...] found for: HIV1X2 No results found for: [id number] No results found for: VDRLCSF Lab Results Component Value Date HEPAIGM Nonreactive 07/22/2019 HEPBCAB Nonreactive 07/22/2019 No results found for: [id number] No results found for: [id number] Diagnostic Studies Renal Ultrasound: Results for orders placed during the hospital encounter of 06/27/19 US Retroperitoneal complete Narrative EXAM: US RETROPERITONEAL COMPLETE INDICATION: CARMEN on CKD, COMPARISON: Abdominal ultrasound dated 01/12/2019 TECHNIQUE: Grayscale and color Doppler imaging acquisition was performed for evaluation of the kidneys and urinary bladder. FINDINGS: Right Kidney: 9.9 x 5.3 x 5.1 cm. There is no hydronephrosis. Normal echogenicity. No masses or calculi are appreciated. Left Kidney: 10.4 x 5.6 x 5.7 cm. There is no hydronephrosis. Normal echogenicity. No masses or calculi are appreciated. Bladder: Evaluation of the bladder is limited, but is grossly unremarkable. Other: None Impression IMPRESSION: Normal renal ultrasound. Approved by Jimmy Velasquez MD on 06/28/2019 3:29 PM EST I have personally reviewed the images and I agree with this report. Report Verified by: Lion Mike MD at 06/28/2019 4:36 PM EST No results found for this or any previous visit. Radiology last 48 hours: X-ray Portable Chest Result Date: 07/20/2019 EXAM: XR PORTABLE CHEST INDICATION: Dyspnea, unspecified TECHNIQUE: Portable AP view of the chest. COMPARISON: 01/12/2019 FINDINGS: Exam was performed on 07/20/2019 4:47 AM EST. Medical Devices: None. Heart and Mediastinum: Cardiomediastinal silhouette is within normal limits. Lungs and Pleura: Lungs a re clear with no focal consolidations or pleural effusions. No evidence for pneumothorax. Bones: Noacute osseous abnormalities. IMPRESSION: Negative portable chest. Approved by Felice Arnett MD on 07/20/2019 5:57 AM EST I have personally reviewed the images and I agree with this report. Report Verified by: William Mathew MD at 07/20/2019 6:13 AM EST Medical Decision Making: Leoncio Rollins is a 44 y.o. male with Nijut-yb-zcqtujw kidney injury (CMS Dx). Medical problems being addressed in this encounter include the following: Principal Problem: Vsufi-hw-mdcscfd kidney injury (CMS Dx) Active Problems: Group C streptococcal infection In addition to the above an extensive amount of complex data in the patients lab and chart were reviewed. Morbidity / complication risk is felt to be: moderate / high. Assessment and Plan: Leoncio Rollins is a 44 y.o. male with a past medical history of JC on CPAP, CKD, KIM Cirrhosis with EV s/p??liver transplant??09/2017 who presented on 07/19/2019 with Fevers. Nephrology is consulted for CARMEN. #) Oliguric Acute Kidney Injury (CARMEN) on CKD stage 4-5: - Baseline creatinine: 4.4-4.9 ; admission creatinine 7.7. KDIGO Stage: 1-2. - Baseline CKD stage 4-5. Etiology unclear. He declined renal biopsy previously. Known to have nephrotic range proteinuria: serologies negative except TERESA 1:160 and faint monoclonal band on SPEP on 02/28/19. Etiology of CKD and proteinuria unclear - diabetic nephropathy is possible He has a prior poor renal reserve. Now came in with infection - blood cultures + from OSH. Likely this tipped him over. Initiated on IHD via TDC. Established TTS while he is in hospital. #) Electrolytes: - No acute concerns. Hyperphosphatemia. Will try and manage with HD May need phosphate binders. Lab Results Component Value Date CREATININE 4.93 (H) 07/25/2019 BUN 27 (H) 07/25/2019 NA 141 07/25/2019 K 4.5 07/25/2019 CL 103 07/25/2019 CO2 26 07/25/2019 Lab Results Component Value Date PTH 164.0 (H) 01/14/2019 CALCIUM 7.6 (L) 07/25/2019 PHOS 3.7 07/25/2019 #) Acid/Base: NAGMA? - CO2 26 - Labs: Lab Results Component Value Date PHART 7.41 10/09/2017 PCO2 34 (L) 10/09/2017 PO2ART 123 (H) 10/09/2017 [id number] 21 (L) 10/09/2017 BEART -2.9 (L) 10/09/2017 [id number] 97.6 10/09/2017 #) Volume Status: - Euvolemic. Intake/Output Summary (Last 24 hours) at 07/25/2019 1004 Last data filed at 07/25/2019 0626 Gross per 24 hour Intake 240 ml Output 1340 ml Net -1100 ml #) Blood Pressures: Hypertension: - Home meds: coreg 50mg BID, clonidine 0.1mg BID, nifedipine 90mg BID (rather high dose), [id number] nightly, Torsemide held. - Per primary team #) Anemia in Chronic Kidney Disease: - Hgb 12 from a few days prior to admission, seems inaccurate. - Hgb 8.9 today - Iron studies / Ferritin: JOSE ALFREDO from 05/2019 - B12 and Folate IV iron 300 mg x 3 doses. #) Chronic Kidney Disease-Bone Mineral Disorder: Secondary Hyperparathyroidism: - Home: Ergo 50,000 u weekly. Recommendations: IHD today 4 hrs. Regular blood flows. UF 2 - 2.5 L Need to arrange for an outpt spot for HD. Please start pt on Darbepoetin 60 mcg once every week with HD. First dose can be administer on 27 Jul 2019. Enrike Mccracken MD Div. of Nephrology and Hypertension. [facility]. Cell: [phone]. E-mail: [email or web address]. Cosigned by Li Rossi MD at 07/25/2019 6:07 PM EST Associated attestation - Li Rossi MD - 07/25/2019 6:07 PM EST I have seen and examined the patient, reviewed the notes, assessments, and/or procedures performed by the fellow/resident/DANCE COSTUME DESIGNER and I concur with her/his documentation of the patient. Review of labs, pathology reports, radiograph reports, and medical records confirm the findings noted above. I have edited the note where appropriate. I have discussed my findings and recommendations with the patient/family when appropriate and answered their questions. ESRD now. Third session of IHD today. UF ~ 2L. Not to hold his antihypertensives in am. Li Rossi MD, MS Division of Nephrology [facility] [address] [place], [id number] * Maru Carlson - 07/25/2019 8:52 AM EST Gastroenterology Progress Notes Mr. Rollins is a 44 year old man with a history of KIM cirrhosis s/p liver transplant in 2018 and CKD who presents with fevers and acute on chronic kidney injury. S: Patient states that pain has resolved. He is eating and drinking well. Ambulatory. Patient states that he is ready to go home. O: Vitals: 07/25/19 0522 BP: 152/68 Pulse: 76 Resp: 16 Temp: 98 ??F (36.7 ??C) SpO2: 93% General: patient is doing well, no acute distress Heart: regular rate and rhythm, no murmurs, rubs, or gallops Lungs: CTAB, no wheezes, rales, or rhonchi Abdomen: hepatomegaly present, non-distended, non-tender, normal bowel sounds Extremities: no extremity edema Neuro: a&ox4 Psych: mood appropriate, seems mildly confused at times A: Mr. Rollins is a 44 year old man with a history of KIM cirrhosis s/p liver transplant in 2018 and CKD who presents with fevers and acute on chronic kidney injury. He is doing well from a GI standpoint. EGD today should show extend of ulcers and will direct valcyclovir dosing and length of treatment. Need to discuss further inpatient needs with the renal team. Bacteremia -continue IV ceftriaxone inpatient -will switch to ancef with dialysis outpatient ?? Acute on chronic renal failure -getting Fe with dialysis -got final initiation dialysis today -has home dialysis coordinated ?? Palatal ulcers -valcyclovir for potential herpes infection -EGD benign -uclers are improving with valcyclovir ?? Liver transplant -liver team consulted and switched patient from tacrolimus to cyclosporine -continue entecavir -dialysis dosing per pharmacy Anemia -likely anemia of chronic disease according to Fe studies ?? Diabetes -stable during hospital stay ?? HTN -has had elevated blood pressures during dialysis -states that he hasn't been getting his BP meds Dispo: Ready for discharge once drug dosing is coordinated with pharmacy and he is cleared by renal. Maru Aldo MS3 Cosigned by Marcelino Fox MD at 07/25/2019 12:59 PM EST Associated attestation - Marcelino Fox MD - 07/25/2019 12:59 PM EST Discharge Note Discharge home Diagnoses Chronic renal failure stg 5 on hemodialysis Oral ulcers s/p liver transplantation Follow up: Continue valgancyclovir Liver transplantation clinic Outpatient hemodialysis I saw and examined the patient. I discussed with the resident or fellow and agree with medcial student's findings and plan as documented in the note. Marcelino Fox MD * Maru [place] - 07/24/2019 9:53 AM EST Gastroenterology Progress Notes Mr. Rollins is a 44 year old man with a history of KIM cirrhosis s/p liver transplant in 2018 and CKD who presents with fevers and acute on chronic kidney injury. S: Patient had continued throat pain overnight but was able to sleep through the night. He is able to eat and drink but states that there is some pain. He is able to get up and walk. O: Vitals: 07/24/19 1328 BP: 168/87 Pulse: 87 Resp: 16 Temp: 98.3 ??F (36.8 ??C) SpO2: 93% General: patient is doing well, no acute distress Heart: regular rate and rhythm, no murmurs, rubs, or gallops Lungs: CTAB, no wheezes, rales, or rhonchi Abdomen: hepatomegaly present, non-distended, non-tender, normal bowel sounds Extremities: no extremity edema Neuro: a&ox4 Psych: mood appropriate, seems mildly confused at times A: Mr. Rollins is a 44 year old man with a history of KIM cirrhosis s/p liver transplant in 2018 and CKD who presents with fevers and acute on chronic kidney injury. He is doing well from a GI standpoint. EGD today should show extend of ulcers and will direct valcyclovir dosing and length of treatment. Need to discuss further inpatient needs with the renal team. Bacteremia -continue IV ceftriaxone inpatient -will switch to ancef with dialysis outpatient ?? Acute on chronic renal failure -getting Fe with dialysis today -continue dialysis initiation inpatient -has chosen outpatient dialysis center ?? Pharyngitis, possible esophagitis -valcyclovir for potential herpes infection -EGD will be performed today ?? Liver transplant -liver team consulted and switched patient from tacrolimus to cyclosporine -continue entecavir Anemia -likely anemia of chronic disease according to Fe studies ?? Diabetes -stable during hospital stay ?? HTN -stable during hospital stay Dispo: Cosigned by Marcelino Fox MD at 07/24/2019 3:15 PM EST Associated attestation - Marcelino Fox MD - 07/24/2019 3:15 PM EST See my note earlier today on resident's progress note * Stan Larios DO - 07/24/2019 9:33 AM EST Department of Internal Medicine Progress Note Patient: Leoncio Rollins CSN: [id number] Chief Complaint Fever at OSH, elevated Cr History of Present Illness Leoncio Rollins is a 44 y.o. male with a history of JC on CPAP, CKD, KIM Cirrhosis with EV s/p??liver transplant??09/2017 who presents as direct admit from OSH due to concern for infection and CARMEN insetting of previous transplant on immunosuppression. Interval History NAOE, hemodynamically stable Mr. Rollins's throat feels much better today. After questioning him a little further, he said he didhave his first ever cold sore shortly before presenting to the hospital. He went for his second round of dialysis this morning and EGD around noon. Kidney function has improved post-dialysis, liver function stable, Hb 7.3 Assessment & Plan Leoncio Rollins is a 44 y.o. male being admitted to the hospital for fever and CARMEN. Medical problemsbeing addressed in this encounter include the following: Principal Problem: Osbdp-ua-iixsyil kidney injury (CMS Dx) Today's updated plan: 1) EGD w/ biopsy to look for esophageal ulcers/lesions similar to those on palate 2) Dialysis today #Pharyngitis, Pharyngeal Ulcers: likely group c strep pharyngitis, but cannot r/o other cause in immunocompromised patient including CMV, HSV. Possibility that ulcer was source for bacteremia with other underlying viral etiology. -HSV and CMV swab -CMV PCR quant/qual -valacyclovir 500 mg daily empirically given renal failure -rocephin, day 4 in house (received 1 day cefepime before that) - GI cocktail, tramadol prn pain #Fever in immunocompromised patient - blood cx grew Grp C Strep at OSH, repeat showed NGTD since 07/20 - transplant ID consulted, appreciate recs - CTX 2g daily, day 4 in house, can transition to IV abx w/ dialysis - pharyngitis w/u as above - holding cellcept; starting cyclosporine as below - hepatology and transplant ID following ?? #Acute on chronic kidney injury: Baseline Cr 4-5, 7 on admission, oliguric and rising SCr. Etiologyunclear, previously follow-up with renal for transplant eval but declined biopsy. Failed fluid challenge. - Consult transplant nephrology, appreciate recs - hold home torsemide - strict I/O - s/p TDS 07/23, iHD per nephrology today ?? # Acute on chronic anemia likely 2/2 anemia of chronic disease with JOSE ALFREDO component. - pt recently admitted in Jun. Patient received 1 unit PRBCs on 06/29. Hemolysis labs negative at that time.?? Received SQ aranesp prior to discharge. Received 2 units PRBC, Hb stable at 7.5 in house. 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 Stable but having poor oral intake from pharyngitis - NPH 18 in am, 6 in pm with 3u TID AC with SSI ?? #Hypertension: near goal, occasional increases in BP - continue on coreg, clonidine, nifedipine, and terazosin - holding torsemide ?? #Neuropathic pain -gabapentin 200mg nightly PRN due to renal failure # RLS - continue carbamazepine Review of Systems Gen: + fatigue No weight loss, no fevers, no chills, no night sweats HEENT: +two ulcerated lesions on posterior palate, No lymphadenopathy, no vision changes CV: No chest pain, no palpitations Resp: No cough, no shortness of breath, no sputum GI: + diarrhea, no constipation, no nausea, no vomiting : No dysuria, no discharge MSK: + sided chest wall pain from recent fall, No myalgia, no arthralgia Neuro: No seizure, no weakness, no headache Endo: No polyuria, no cold intolerence Heme: No easy bruising, no easy bleeding Derm: No rash, no wound Past Medical History Past Medical History: Diagnosis [...] file Gets together: Not on file Attends roman catholic service: Not on file Active member of [...] Feng CNP blood-glucose meter (ONETOUCH VERIO SYSTEM) [facility] Use as instructed. 10/18/17 Bere Feng CNP carBAMazepine (TEGRETOL) 200 mg tablet Take 200 mg by mouth at bedtime. Historical Provider, carvedilol (COREG) 25 MG tablet Take 2 tablets (50 mg total) by mouth 2 times a day with meals. 10/26/17 Bere Feng CNP cloNIDine HCl (CATAPRES) 0.1 MG tablet Take 1 tablet (0.1 mg total) by mouth if needed. Patient taking differently: Take 0.1 mg by mouth 2 times a day. 01/17/19 Niurka Valles MD doxazosin (CARDURA) 8 MG tablet 8 mg 2 times a day. 05/12/18 Historical Provider, entecavir (BARACLUDE) 0.5 MG tablet Take 1 tablet (0.5 mg total) by mouth every 72 hours. 07/01/19 Malinda Rhodes MD ergocalciferol (VITAMIN D2) 50,000 unit capsule [...] and at bedtime. 10/18/17 Bere Feng CNP mycophenolate (CELLCEPT) 250 mg capsule Take 3 capsules (750 mg total) by mouth 2 times a day. 06/25/19 Arnold Ordoñez MD NIFEdipine (PROCARDIA-XL) 90 MG (OSM) 24 hr tablet Take 90 mg by mouth 2 times a day. 04/23/18 Historical Provider, ondansetron (ZOFRAN-ODT) 4 MG disintegrating tablet every 8 hours as needed. 04/11/18 Historical Provider, pen needle, diabetic 32 gauge x /32 Ndle Use as directed to inject insulin 4 times daily. 10/16/17 Bere Feng CNP pen needle, diabetic 32 gauge x Ndle For use with insulin pen. Use as instructed. 10/16/17 Bere Feng CNP polyethylene glycol (MIRALAX) 17 gram packet Take 17 g by mouth 2 times a day as needed. 01/17/19 Niurka Valles MD sodium bicarbonate 650 MG tablet Take 2 tablets (1,300 mg total) by mouth 2 times a day. 07/01/19 Malinda Rhodes MD tacrolimus ER, 24 HR, (ENVARSUS XR) 1 mg Tb24 Take 3 tablets (3 mg total) by mouth daily. Per Hepatology recommendations 07/01/19 Malinda Rhodes MD torsemide (DEMADEX) 20 MG tablet Take 1 tablet (20 mg total) by mouth daily. 03/01/19 Aris Moctezuma MD Inpatient Meds: Scheduled: Continuous: PRN: Vital Signs Temp: [97.7 ??F (36.5 ??C)-98 ??F (36.7 ??C)] 97.7 ??F (36.5 ??C) Heart Rate: [69-84] 69 Resp: [11-18] 18 BP: (127-175)/(76-98) 167/91 Intake/Output Summary (Last 24 hours) at 07/24/2019 0933 Last data filed at 07/23/2019 2146 Gross per 24 hour Intake 5010 ml Output 550 ml Net 4460 ml Physical Exam Vital signs reviewed. General: Well appearing, obese age appropriate male, in no acute distress JOLANTA: Normocephalic, atraumatic, PERRL, EOMs intact. OP per media tap with 2 white plaques on soft palate Neck: No JVD, trachea midline Heart: Regular rate and rhythm, no murmurs, rubs, gallops Lungs: Clear to auscultation bilaterally, no wheezes or rales, normal work of breathing Chest: quarter-sized bruise on L side of chest wall. R sided TDC c/d/i Back: Symmetric, no CVA tenderness Abdomen: Soft, obese, non-tender, distended, + liver transplant scar Extremities: No clubbing, 2+ pitting edema to mid calf bilaterally, no asterixis Skin: No rashes, no wounds, no jaundice Neuro: AOx4, moves all 4 extremities, follows commands Psych: Alert and appropriate, normal affect Laboratory Data Lab 07/23/19 0414 07/22/19 0616 07/21/19 1047 07/21/19 0133 WBC 4.4 5.1 5.9 5.7 HEMOGLOBIN 7.3* 7.9* 7.5* 7.3* HEMATOCRIT 22.4* 24.3* 23.5* 22.6* MEAN CORPUSCULAR VOLUME 83.0 82.9 83.6 84.1 PLATELETS 146 133* 131* 131* Lab 07/24/19 03207/23/19 0414 07/22/19 0616 07/21/19 1047 SODIUM 139 139 134 134 POTASSIUM 4.4 4.4 4.6 5.2 CHLORIDE 103 103 99 100 CO2 24 21 21 21 BUN 52* 64* 67* 63* CREATININE 6.40* 8.86* 9.07* 8.65* GLUCOSE 156* 107* 191* 182* Lab 07/24/198 07/23/194 07/22/19 0616 07/21/19 1047 07/21/19 0133 07/19/19 2357 CALCIUM 7.1* 7.2* 7.3* 7.6* 7.4* < > 7.3* MAGNESIUM 1.9 2.0 1.9 -- -- -- 1.7 PHOSPHORUS 4.7 5.8* 5.9* -- 5.6* < > 4.9* < > = values in this interval not displayed. Lab 07/19/19 2357 INR 1.1 PROTHROMBIN TIME 15.0 Lab 07/24/1932707/23/194 07/22/19 0616 07/21/19 0133 07/20/19 0628 07/19/19 2357 ALT 6* -- 10 -- 8 6* AST 13 -- 11* -- 15 12* ALK PHOS 79 -- 81 -- 87 98 BILIRUBIN TOTAL 0.2 -- 0.3 -- 0.3 0.3 BILIRUBIN DIRECT 0.09 -- 0.04 -- 0.07 0.05 ALBUMIN 3.0* 3.0* 2.9* 3.0* 3.0* 3.1* 3.2* 3.2* 3.3* 3.3* Lab 07/20/19 0606 COLOR, URINE Yellow CLARITY Cloudy* SPECIFIC GRAVITY, URINE 1.017 PH UA 6.0 PROTEIN UA >=500* GLUCOSE UA 150* KETONES UA Negative BILIRUBIN UA Negative BLOOD UA Small* NITRITE UA Negative UROBILINOGEN UA <2.0 LEUKOCYTES UA Negative RBC UA 6* WBC UA 1 BACTERIA Few* MUCUS Present* Lab 07/20/19 0952 CK TOTAL 370* No results found for: NTPROBNP Lab Results Component Value Date TSH 2.02 12/20/2017 FREET4 1.03 10/20/2017 Lab 07/24/19 0927 07/23/19 1951 07/23/19 1753 07/23/19 1531 POC GLU MONITORING DEVICE 123* 115* [address] Abdomen and Pelvis WO IV contrast Final Result IMPRESSION: No acute findings in the abdomen/pelvis. Approved by Leeroy Jo MD on 07/21/2019 10:26 AM EST I have personally reviewed the images and I agree with this report. Report Verified by: Manolo Rosenthal MD at 07/21/2019 10:[address] Head WO contrast Final Result IMPRESSION: 1. No acute intracranial abnormality. Report Verified by: Eleanor Mtz at 07/21/2019 9:53 AM EST X-ray Portable Chest Final Result IMPRESSION: Negative portable chest. Approved by Felice Arnett MD on 07/20/2019 5:57 AM EST I have personally reviewed the images and I agree with this report. Report Verified by: William Mathew MD at 07/20/2019 6:[address] Neck With IV contrast (Results Pending) Nutrition: Diet Orders Diet NPO past midnight starting at 07/23 5991 Code Status: Full Code Signed: STAN LARIOS DO 07/24/2019, 9:33 AM Cosigned by Marcelino Fox MD at 07/24/2019 3:14 PM EST Associated attestation - Marcelino Fox MD - 07/24/2019 3:14 PM EST THroat feeling better. Will swab throat ulcers for HSV. Will also do EGD to assess for esophagitis.He is swallowing, drinking and eating. Also got second round of dialysis today/. Continues on valgancyclovir. Liver service has decided to swithc from Tacrolimus to cyclosporine. I saw and examined the patient. I discussed with the resident or fellow and agree with Dr. Larios's findings and plan as documented in the note. Marcelino Fox MD * Dav Johnson MD - 07/24/2019 9:07 AM EST INFECTIOUS DISEASE PROGRESS NOTE 07/24/2019 9:02 AM Leoncio Rollins is a 44 y.o. male patient. Hospital Day: 5 Chief Complaint/Reason for Follow-up: bacteremia Subjective: Throat pain much better NPO for scope Afebrile Thinks he'll be able to eat today Review of Systems Constitutional: Negative for chills and fever. HENT: Positive for mouth sores and sore throat. Respiratory: Negative for cough and shortness of breath. Cardiovascular: Positive for chest pain and palpitations. Gastrointestinal: Positive for vomiting. Negative for abdominal pain and diarrhea. Skin: Negative for rash and wound. Objective: Vital signs: Vitals: 07/24/19 0845 BP: (!) 167/97 Pulse: 77 Resp: Temp: SpO2: Temp last 24 hours:Temp (24hrs), Av.8 ??F (36.6 ??C), Min:97.7 ??F (36.5 ??C), Max:98 ??F (36.7??C) Scheduled Meds: ??? aspirin 81 mg Oral [...] ??? valACYclovir 500 mg Oral Daily 0900 Continuous Infusions: PRN Meds:acetaminophen, aluminum & magnesium hydroxide-simethicone AND lidocaine HCl, benzocaine-menthol, dextrose 10% in water OR dextrose 10% in water, gabapentin, glucose, melatonin, ondansetron, phenol, polyethylene glycol, traMADol Intake/Output last 3 shifts: Date 07/23/19 07 - 07/24/19 0659 07/24/19 07 - 07/25/19 0659 Shift 8392-2049 5357-8463 4480-9366 24 Hour Total 2393-7875 4840-6704 7978-1430 24 Hour Total INTAKE P.O. 100 5010 5110 P.O. 100 5010 5110 Shift Total(mL/kg) 100(0.7) 5010(38.1) 5110(38.8) OUTPUT Urine(mL/kg/hr) 400(0.4) 400(0.1) Urine 400 400 Other 400 400 Net fluid removal (ml) 400 400 Shift Total(mL/kg) 400(2.9) 400(3) 800(6.1) Weight (kg) 136.9 131.5 131.5 131.5 131.5 131.5 131.5 131.5 Physical Exam Constitutional: General: He is not in acute distress. HENT: Mouth/Throat: Comments: 2 ulcers on posterior hard palate without yellow sloughing today, appear healing Eyes: General: No scleral icterus. Pupils: Pupils are equal, round, and reactive to light. Cardiovascular: Rate and Rhythm: Normal rate. Heart sounds: No murmur. Pulmonary: Breath sounds: No wheezing or rales. Abdominal: General: There is no distension. Palpations: Abdomen is soft. Skin: General: Skin is warm and dry. Neurological: Mental Status: He is alert. Psychiatric: Mood and Affect: Mood normal. Behavior: Behavior normal. Labs: Lab 07/23/19 0414 WBC 4.4 HEMOGLOBIN 7.3* HEMATOCRIT 22.4* MEAN CORPUSCULAR VOLUME 83.0 PLATELETS 146 Lab 07/24/19 0328 SODIUM 139 POTASSIUM 4.4 CHLORIDE 103 CO2 24 BUN 52* CREATININE 6.40* GLUCOSE 156* CALCIUM 7.1* MAGNESIUM 1.9 PHOSPHORUS 4.7 Lab 07/24/19 0328 ALK PHOS 79 AST 13 ALT 6* BILIRUBIN TOTAL 0.2 BILIRUBIN DIRECT 0.09 Lab 07/19/19 2357 PROTHROMBIN TIME 15.0 INR 1.1 Assessment/Plan: 44 y.o. M s/p OLT 09/2017 admitted for sore throat and falls, found to have bacteremia and oral ulcerations 1. Group C strep bacteremia - continue Ceftriaxone 2g IV q24 while inpatient - anticipate a 2 week course, with transition to Cefazolin 2g/2g/3g with HD at d/c, end date 08/01/19 - presume source is the mucositis, oral ulceration - CT A/P and TTE negative for source 2. Oral ulcers - much improved today - swabs of the ulcers for HSV and CMV PCRs pending - doesn't look like thrush - Valtrex 500mg daily - send urine and serum Histo Ag's, not collected - EGD with biopsy today - if no improvement or diagnosis, may need biopsy per ENT 3. CMV viremia - unclear significance, PCR q7 days - swabbed ulcers for CMV as above Dav Johnson MD 07/24/[phone] * Enrike Mccracken MD - 07/24/2019 8:57 AM EST Transplant Nephrology Consult - Progress Note Patient: Leoncio Rollins [id number] Date of Admit: 07/19/2019. LOS: 5 days. Referring physician: Marcelino Fox MD Date: 07/24/2019 Reason for Consult Acute Kidney Injury (CARMEN) History of Present Illness Leoncio Rollins is a 44 y.o. male with a past medical history of JC on CPAP, CKD, KIM Cirrhosis with EV s/p??liver transplant??09/2017 who presented on 07/19/2019 with Fevers. Nephrology is consulted for CARMEN. Leoncio Rollins reports that he feels well; except only symptoms being anorexia and some lower abdominal swelling. He is sent here from [place] with fevers. He is still fevering all day today; which started yesterday. He is anemic and getting pRBC. He had multiple falls recently and landed on hisleft abdomen. Of note, he was recently admitted 06/2019 for CARMEN with Cr 4.8 and was transferred to for furtherevaluation. Pt was admitted in 01/2019 for fluid overload and had 13gm of proteinuria. Kidney biopsywas offered but pt refused at that time. Cr was around mid 3s over this year. Pt denies exposure toNSAIDs. Contrast exposure: denies Nephrotoxic drug exposure: denies nsaids Hypotensive episodes: none known Interval History: First dialysis done on Jul. No new issues. Nutrition: Diet Orders Diet NPO past midnight starting at 07/23 0169 Access: Patient Lines/Drains/Airways Status Active Epidural Line / PICC Line / PIV Line / ART Line / Line / CVC Line Name: Placement date: Placement time: Site: Days: Peripheral IV 07/20/19 Right Antecubital 07/20/19 1503 Antecubital 3 HD Catheter Dual Lumen (Vas Cath) Tunneled Right Internal Jugular 07/23/19 1018 Internal Jugular less than 1 NHSN Device Days (06/24/2019 to 07/23/2019) Central line: 1 Urinary catheter: 0 Code Status: Full Code Review of Systems (Focused) Significant as listed in HPI otherwise General: No weight loss; No fever; No chills ENT : No ear pain, No hearing loss Skin: No itching; No rashes Head/Eyes: No headache; No visual changes ENT: No hearing changes; No nasal congestion Respiratory: No dyspnea; No cough; No hemoptysis CV: No chest pain; No ankle edema GI: No nausea / vomiting; No constipation; No diarrhea; No melena; +abdominal fullness : No dysuria; No hematuria; No frequency. No urinary urgency; No hesitancy; No weak stream. Past Medical History Past Medical History: Diagnosis [...] ??? Diabetes Sister Social History Social History Tobacco Use ??? Smoking status: Never Smoker ??? Smokeless tobacco: Never Used Substance Use Topics ??? Alcohol use: No Medications Prior to Admission Medicationss: Medications Prior to Admission Medication Sig Dispense Refill Last Dose ??? aspirin 81 MG chewable tablet Chew 1 tablet (81 mg total) by mouth daily with breakfast. 30 tablet 5 07/19/2019 at Unknown time ??? blood sugar diagnostic [facility] Use to test blood sugar up to 4 times a day. Diagnosis for use: E 9.65. For use with One Touch Verio meters. 150 strip 5 07/19/2019 at Unknown time ??? blood-glucose meter (ONETOUCH VERIO SYSTEM) [facility] Use as instructed. 1 each 0 07/19/2019 at Unknown time ??? carBAMazepine (TEGRETOL) 200 mg tablet Take 200 mg by mouth at bedtime. 07/18/2019 at Unknown time ??? carvedilol (COREG) 25 MG tablet Take 2 tablets (50 mg total) by mouth 2 times a day with meals.120 tablet 5 07/19/2019 at Unknown time ??? cloNIDine HCl (CATAPRES) 0.1 MG tablet Take 1 tablet (0.1 mg total) by mouth if needed. (Patient taking differently: Take 0.1 mg by mouth 2 times a day. ) 60 tablet 0 07/19/2019 at Unknown time ??? doxazosin (CARDURA) 8 MG tablet 8 mg 2 times a day. 07/19/2019 at Unknown time ??? entecavir (BARACLUDE) 0.5 MG tablet Take 1 tablet (0.5 mg total) by mouth every 72 hours. 15 tablet 11 07/19/2019 at Unknown time ??? ergocalciferol (VITAMIN D2) 50,000 unit capsule Take 50,000 Units by mouth once a week. 07/19/2019 at Unknown time ??? famotidine (PEPCID) 20 MG tablet Take 20 mg by mouth daily. 07/18/2019 at Unknown time ??? fluticasone propionate (FLONASE) 50 mcg/actuation nasal spray use 2 spray(s) in each nostril daily 11 07/18/2019 at Unknown time ??? gabapentin (NEURONTIN) 100 MG capsule Take 4 capsules (400 mg total) by mouth daily. 180 capsule 0 07/18/2019 at Unknown time ??? insulin glulisine U-100 (APIDRA U-100 INSULIN) 100 unit/mL injection Inject 5 Units subcutaneously 3 times a day with meals. 10 mL 0 07/19/2019 at Unknown time ??? insulin NPH isoph U-100 human (HUMULIN N NPH INSULIN KWIKPEN) 100 unit/mL (3 mL) InPn Inject subcutaneously 20 units in the AM and 8 units in the PM. 15 mL 5 07/19/2019 at Unknown time ??? lancets (ONETOUCH DELICA LANCETS) 33 gauge Misc Use 1 strip as directed 4 times daily before meals and at bedtime. 150 each 5 07/19/2019 at Unknown time ??? mycophenolate (CELLCEPT) 250 mg capsule Take 3 capsules (750 mg total) by mouth 2 times a day. 180 capsule 5 07/19/2019 at Unknown time ??? NIFEdipine (PROCARDIA-XL) 90 MG (OSM) 24 hr tablet Take 90 mg by mouth 2 times a day. 07/19/2019 at Unknown time ??? ondansetron (ZOFRAN-ODT) 4 MG disintegrating tablet every 8 hours as needed. Past Week at Unknown time ??? pen needle, diabetic 32 gauge x Ndle Use as directed to inject insulin 4 times daily. 150each 5 07/19/2019 at Unknown time ??? pen needle, diabetic 32 gauge x Ndle For use with insulin pen. Use as instructed. 150 each 5 07/19/2019 at Unknown time ??? polyethylene glycol (MIRALAX) 17 gram packet Take 17 g by mouth 2 times a day as needed. 100 packet 0 Past Week at Unknown time ??? sodium bicarbonate 650 MG tablet Take 2 tablets (1,300 mg total) by mouth 2 times a day. 120 tablet 0 07/19/2019 at Unknown time ??? tacrolimus ER, 24 HR, (ENVARSUS XR) 1 mg Tb24 Take 2 tablets (2 mg total) by mouth daily. Per Hepatology recommendations 60 tablet 5 07/19/2019 at Unknown time ??? torsemide (DEMADEX) 20 MG tablet Take 1 tablet (20 mg total) by mouth daily. 30 tablet 5 07/19/2019 at Unknown time Scheduled Medications: ??? aspirin 81 mg Oral Daily with [...] ??? valACYclovir 500 mg Oral Daily 0900 Continuous Infusions: PRN medications: acetaminophen, aluminum & magnesium hydroxide-simethicone AND lidocaine HCl, benzocaine-menthol, dextrose 10% in water OR dextrose 10% in water, gabapentin, glucose, melatonin, ondansetron, phenol, polyethylene glycol, traMADol Allergies: Allergies Allergen Reactions ??? Codeine Sulfate Hyper ??? Codeine Other (See Comments) Becomes hyper Vital Signs Temp: [97.7 ??F (36.5 ??C)-98 ??F (36.7 ??C)] 97.7 ??F (36.5 ??C) Heart Rate: [70-84] 77 Resp: [-18] 18 BP: (127-175)/(74-98) 167/97 Patient Vitals for the past 4 hrs: BP Pulse 07/24/19 0845 (!) 167/97 77 07/24/19 0830 (!) 175/92 73 07/24/19 0815 (!) 158/98 71 07/24/19 0800 (!) 164/92 70 07/24/19 0745 152/90 71 07/24/19 0715 127/83 81 Wt Readings from Last 3 Encounters: 07/23/19 (!) 290 lb (131.5 kg) 07/01/19 (!) 292 lb 14.4 oz (132.9 kg) 02/28/19 (!) 282 lb (127.9 kg) Admit Wt: Weight: (!) 302 lb 1.6 oz (137 kg) Todays Wt: Weight: (!) 290 lb (131.5 kg) Estimated body mass index is 45.42 kg/m?? as calculated from the following: Height as of this encounter: 5' 7 (1.702 m). Weight as of this encounter: 290 lb (131.5 kg). Date 07/23/19699 - 07/24/1965807/24/19699 - 07/25/19658 Shift 0727-1805 6826-4141 0572-2492 24 Hour Total 9091-4104 6127-9520 2161-5295 24 Hour Total INTAKE P.O. 100 5010 5110 P.O. 100 5010 5110 Shift Total(mL/kg) 100(0.7) 5010(38.1) 5110(38.8) OUTPUT Urine(mL/kg/hr) 400(0.4) 400(0.1) Urine 400 400 Other 400 400 Net fluid removal (ml) 400 400 Shift Total(mL/kg) 400(2.9) 400(3) 800(6.1) Weight (kg) 136.9 131.5 131.5 131.5 131.5 131.5 131.5 131.5 RESPIRATORY Ventilator Setting: No data found. Fi02 Requirement: No data found. Last ABG: Lab Results Component Value Date PCO2 34 (L) 10/09/2017 [id number] 97.6 10/09/2017 Physical Exam General: A&Ox3, NAD, laying comfortably in bed HEENT: normocephalic, atraumatic Neck: neck supple and symmetrical Cardiac: regular rate and rhythm, no M/R/G, normal S1 and S2 Pulm: aerating well, bilaterally CTA, no crackles, no wheezes, no rhonchi Abd: normal bowel sounds, soft, non-tender to palpation, +obese, +L scar Extremities: atraumatic, no cyanosis, no LE edema Skin: atraumatic, no rashes or lesions Neuro: moving all extremities without difficulty, grossly intact Laboratory Data Recent Labs 07/21/19 1047 07/22/19 0616 07/23/19 0414 WBC 5.9 5.1 4.4 HGB 7.5* 7.9* 7.3* HCT 23.5* 24.3* 22.4* MCV 83.6 82.9 83.0 PLT 131* 133* 146 Recent Labs 07/22/19 0616 07/23/19 0414 07/24/19 0328 NA 134 139 139 K 4.6 4.4 4.4 CL 99 103 103 CO2 21 21 24 BUN 67* 64* 52* CREATININE 9.07* 8.86* 6.40* GLUCOSE 191* 107* 156* CALCIUM 7.3* 7.2* 7.1* MG 1.9 2.0 1.9 PHOS 5.9* 5.8* 4.7 ANIONGAP 14 15 12 No results for input(s): INR, PROTIME, PTT in the last 72 hours. FSBS Range: Recent Labs 07/21/19 1044 07/21/19 1331 07/21/19 1828 07/21/19 1959 07/22/19 1657 07/22/19 2135 07/23/19 1129 07/23/19 1531 07/23/19 1753 07/23/191950 POCGMD 184* 172* 135* 142* 124* 159* 113* 90 74 115* Recent Labs 07/22/19 0616 07/24/19 0328 ALT 10 6* AST 11* 13 ALKPHOS 81 79 BILITOT 0.3 0.2 Cardiac Labs: No results for input(s): CKTOTAL, CKMB, CKMBINDEX, TROPONINI, BNP, NTPROBNP in the last 72 hours. No results for input(s): CHOLTOT, TRIG, HDL, CHOLHDL, LDL in the last 72 hours. Invalid input(s): VLDCHOL Lab Results Component Value Date HGBA1C 6.8 (A) 07/18/2019 HGBA1C 7.2 (A) 05/15/2019 HGBA1C 7.4 (H) 12/13/2018 Nephro Labs: No results for input(s): COLORU, CLARITYU, PH, PROTEINUA, PHUR, LABSPEC, GLUCOSEU, BLOODU, LEUKOCYTESUR, NITRITE, BILIRUBINUR, UROBILINOGEN, RBCUA, WBCUA, BACTERIA, AMORPHOUS, CRYSTAL, CASTS in the last 72 hours. Invalid input(s): KEYTONESU No results for input(s): NAUR, KUR, CLUR in the last 72 hours. Invalid input(s): CO2UR, CRUR No results found for: MICROALBUR, [id number] Lab Results Component Value Date PTH 164.0 (H) 01/14/2019 CALCIUM 7.1 (L) 07/24/2019 PHOS 4.7 07/24/2019 Lab Results Component Value Date [id number] 15.8 (L) 01/14/2019 Anemia Labs: Lab Results Component Value Date IRON 24 (L) 07/21/2019 TIBC 202 (L) 07/21/2019 FERRITIN 433.9 (H) 07/21/2019 Lab Results Component Value Date [id number] 499 07/22/2019 Sepsis Marker Labs: No results for input(s): LACTATE in the last 72 hours. Lab Results Component Value Date FIBRINOGEN 454 (H) 07/20/2019 No results for input(s): TEGANGLE, TEGKTIME, [id number], TEGMAXAMPL, TEGRTIME, CBMZ in the last 72 hours. No results for input(s): ESR, CRP in the last 72 hours. No results found for: ESR, CRP Infectious Labs Urine cx: Lab Results Component [...] found for: HIV1X2 No results found for: [id number] No results found for: VDRLCSF Lab Results Component Value Date HEPAIGM Nonreactive 07/22/2019 HEPBCAB Nonreactive 07/22/2019 No results found for: [id number] No results found for: [id number] Diagnostic Studies Renal Ultrasound: Results for orders placed during the hospital encounter of 06/27/19 US Retroperitoneal complete Narrative EXAM: US RETROPERITONEAL COMPLETE INDICATION: CARMEN on CKD, COMPARISON: Abdominal ultrasound dated 01/12/2019 TECHNIQUE: Grayscale and color Doppler imaging acquisition was performed for evaluation of the kidneys and urinary bladder. FINDINGS: Right Kidney: 9.9 x 5.3 x 5.1 cm. There is no hydronephrosis. Normal echogenicity. No masses or calculi are appreciated. Left Kidney: 10.4 x 5.6 x 5.7 cm. There is no hydronephrosis. Normal echogenicity. No masses or calculi are appreciated. Bladder: Evaluation of the bladder is limited, but is grossly unremarkable. Other: None Impression IMPRESSION: Normal renal ultrasound. Approved by Jimmy Velasquez MD on 06/28/2019 3:29 PM EST I have personally reviewed the images and I agree with this report. Report Verified by: Lion Mike MD at 06/28/2019 4:36 PM EST No results found for this or any previous visit. Radiology last 48 hours: X-ray Portable Chest Result Date: 07/20/2019 EXAM: XR PORTABLE CHEST INDICATION: Dyspnea, unspecified TECHNIQUE: Portable AP view of the chest. COMPARISON: 01/12/2019 FINDINGS: Exam was performed on 07/20/2019 4:47 AM EST. Medical Devices: None. Heart and Mediastinum: Cardiomediastinal silhouette is within normal limits. Lungs and Pleura: Lungs a re clear with no focal consolidations or pleural effusions. No evidence for pneumothorax. Bones: Noacute osseous abnormalities. IMPRESSION: Negative portable chest. Approved by Felice Arnett MD on 07/20/2019 5:57 AM EST I have personally reviewed the images and I agree with this report. Report Verified by: William Mathew MD at 07/20/2019 6:13 AM EST Medical Decision Making: Leoncio Rollins is a 44 y.o. male with Barkt-fb-rtdfeej kidney injury (CMS Dx). Medical problems being addressed in this encounter include the following: Principal Problem: Pnetm-km-ubsaytb kidney injury (CMS Dx) Active Problems: Group C streptococcal infection In addition to the above an extensive amount of complex data in the patients lab and chart were reviewed. Morbidity / complication risk is felt to be: moderate / high. Assessment and Plan: Leoncio Rollins is a 44 y.o. male with a past medical history of JC on CPAP, CKD, KIM Cirrhosis with EV s/p??liver transplant??09/2017 who presented on 07/19/2019 with Fevers. Nephrology is consulted for CARMEN. #) Oliguric Acute Kidney Injury (CARMEN) on CKD stage 4-5: - Baseline creatinine: 4.4-4.9 ; admission creatinine 7.7. KDIGO Stage: 1-2. - Baseline CKD stage 4-5. Etiology unclear. He declined renal biopsy previously. Known to have nephrotic range proteinuria: serologies negative except TERESA 1:160 and faint monoclonal band on SPEP on 02/28/19. Etiology of CKD and proteinuria unclear - diabetic nephropathy is possible He has a prior poor renal reserve. Now came in with infection - blood cultures + from OSH. Likely this tipped him over. Got TDC today AM. Consented for dialysis Initiated on IHD. #) Electrolytes: - No acute concerns. Hyperphosphatemia. Will try and manage with HD May need phosphate binders. Lab Results Component Value Date CREATININE 6.40 (H) 07/24/2019 BUN 52 (H) 07/24/2019 NA 139 07/24/2019 K 4.4 07/24/2019 CL 103 07/24/2019 CO2 24 07/24/2019 Lab Results Component Value Date PTH 164.0 (H) 01/14/2019 CALCIUM 7.1 (L) 07/24/2019 PHOS 4.7 07/24/2019 #) Acid/Base: NAGMA? - CO2 24 - Labs: Lab Results Component Value Date PHART 7.41 10/09/2017 PCO2 34 (L) 10/09/2017 PO2ART 123 (H) 10/09/2017 [id number] 21 (L) 10/09/2017 BEART -2.9 (L) 10/09/2017 [id number] 97.6 10/09/2017 #) Volume Status: - Euvolemic. Intake/Output Summary (Last 24 hours) at 07/24/2019 0850 Last data filed at 07/23/2019 2146 Gross per 24 hour Intake 5010 ml Output 550 ml Net 4460 ml #) Blood Pressures: Hypertension: - Home meds: coreg 50mg BID, clonidine 0.1mg BID, nifedipine 90mg BID (rather high dose), [id number] nightly, Torsemide held. - Per primary team #) Anemia in Chronic Kidney Disease: - Hgb 12 from a few days prior to admission, seems inaccurate. - Hgb 7.3 today - Iron studies / Ferritin: JOSE ALFREDO from 05/2019 - B12 and Folate IV iron 300 mg x 3 doses. #) Chronic Kidney Disease-Bone Mineral Disorder: Secondary Hyperparathyroidism: - Home: Ergo 50,000 u weekly. Recommendations: Consented for IHD. IHD 3 hrs today. Blood flow : 250 Dialysate : 500 UF 500 mL Continue IV iron. Please contact the social work case manager for an outpt spot for dialysis. Will try and establish him on TTS schedule Enrike Mccracken MD Div. of Nephrology and Hypertension. [facility]. Cell: [phone]. E-mail: [email or web address]. Cosigned by Li Rossi MD at 07/24/2019 7:23 PM EST Associated attestation - Li Rossi MD - 07/24/2019 7:23 PM EST I have seen and examined the patient, reviewed the notes, assessments, and/or procedures performed by the fellow/resident/DANCE COSTUME DESIGNER and I concur with her/his documentation of the patient. Review of labs, pathology reports, radiograph reports, and medical records confirm the findings noted above. I have edited the note where appropriate. I have discussed my findings and recommendations with the patient/family when appropriate and answered their questions. ESKD now. Second session of IHD today with slow blood flows. UF ~ 1.3L. Hypertensive during dialysis but did not take his am antihypertensive meds. Third session of IHD tmw. Li Rossi MD, MS Division of Nephrology [place] [id number] [address] [place] [phone] * Gypsy Granados RN - 07/23/2019 6:47 PM EST Hemodialysis Treatment Plan of Care [...] Hemodialysis Procedure well Net fluid removal (ml): 400 mL Hemodialysis Weights Dry Weight: (no UF/) Last Treatment Post Weight: (first treatment) Pre Weight: 135.8 kg (299 lb 6.2 oz) Pre Weight Source: Standing Scale Post Weight: 135.8 kg (299 lb 6.2 oz) Post Weight Source: Standing Scale HD Post Treatment Vitals: BP: 155/86 Heart Rate: 76 Temp: 97.8 ??F (36.6 ??C) Resp rate:16 Delivered Dialysis Prescription: Potassium (mEq/L): 3 Calcium (mEq/L): 2.5 Sodium (mEq/L): 140 Bicarbonate (mEq/L): 35 Blood Flow: 200 Dialysate Flow: 400 Prescribed Treatment Time (minutes): 120 Duration of Treatment (minutes): 120 minutes HD Access Used rt subcl hd cath Lidocaine Used: No Access Needle Placement / Position N/A HD Access Function WELL Other / Comments Pt tolerated tx well. Denies discomfort. Talking with staff. Verbalized tx and express pt will have dialysis tomorrow. No other questions at this time. RN Report Received From JUDI BATES RN Report Given To JUDI BATES Machine Number: [id number] Hemodialysis Meds: Aranesp (Darbepoetin) No therapy plan of the specified type found. IV Iron (Venofer) No therapy plan of the specified type found. Hepatitis Status: Lab Results Component Value Date HEPBCAB Nonreactive 07/22/2019 HEPBSAG Nonreactive 07/22/2019 Reason for admission HYPERTENSION / S/P LIVER TXPLANT * Enrike Mccracken MD - 07/23/2019 2:12 PM EST Transplant Nephrology Consult - Progress Note Patient: Leoncio Rollins [id number] Date of Admit: 07/19/2019. LOS: 4 days. Referring physician: Marcelino Fox MD Date: 07/23/2019 Reason for Consult Acute Kidney Injury (CARMEN) History of Present Illness Leoncio Rollins is a 44 y.o. male with a past medical history of JC on CPAP, CKD, KIM Cirrhosis with EV s/p??liver transplant??09/2017 who presented on 07/19/2019 with Fevers. Nephrology is consulted for CARMEN. Leoncio Rollins reports that he feels well; except only symptoms being anorexia and some lower abdominal swelling. He is sent here from [place] with fevers. He is still fevering all day today; which started yesterday. He is anemic and getting pRBC. He had multiple falls recently and landed on hisleft abdomen. Of note, he was recently admitted 06/2019 for CARMEN with Cr 4.8 and was transferred to for furtherevaluation. Pt was admitted in 01/2019 for fluid overload and had 13gm of proteinuria. Kidney biopsywas offered but pt refused at that time. Cr was around mid 3s over this year. Pt denies exposure toNSAIDs. Contrast exposure: denies Nephrotoxic drug exposure: denies nsaids Hypotensive episodes: none known Interval History: - Blood cultures are reportedly positive at OSH. Blood cultures negative here till now. - UOP 850 mL Got TDC inserted today AM by IR. Nutrition: Diet Orders Diet regular sodium 2 gm (low) starting at 07/23 1310 Access: Patient Lines/Drains/Airways Status Active Epidural Line / PICC Line / PIV Line / ART Line / Line / CVC Line Name: Placement date: Placement time: Site: Days: Peripheral IV 07/20/19 Right Antecubital 07/20/19 1503 Antecubital 2 HD Catheter Dual Lumen (Vas Cath) Tunneled Right Internal Jugular 07/23/19 1018 Internal Jugular less than 1 NHSN Device Days (06/23/2019 to 07/22/2019) Central line: 0 Urinary catheter: 0 Code Status: Full Code Review of Systems (Focused) Significant as listed in HPI otherwise General: No weight loss; No fever; No chills ENT : No ear pain, No hearing loss Skin: No itching; No rashes Head/Eyes: No headache; No visual changes ENT: No hearing changes; No nasal congestion Respiratory: No dyspnea; No cough; No hemoptysis CV: No chest pain; No ankle edema GI: No nausea / vomiting; No constipation; No diarrhea; No melena; +abdominal fullness : No dysuria; No hematuria; No frequency. No urinary urgency; No hesitancy; No weak stream. Past Medical History Past Medical History: Diagnosis [...] ??? Diabetes Sister Social History Social History Tobacco Use ??? Smoking status: Never Smoker ??? Smokeless tobacco: Never Used Substance Use Topics ??? Alcohol use: No Medications Prior to Admission Medicationss: Medications Prior to Admission Medication Sig Dispense Refill Last Dose ??? aspirin 81 MG chewable tablet Chew 1 tablet (81 mg total) by mouth daily with breakfast. 30 tablet 5 07/19/2019 at Unknown time ??? blood sugar diagnostic Str Use to test blood sugar up to 4 times a day. Diagnosis for use: E 9.65. For use with One Touch Verio meters. 150 strip 5 07/19/2019 at Unknown time ??? blood-glucose meter ([employer] VER[employer] SYSTEM) [facility] [place] as instructed. 1 each 0 07/19/2019 at Unknown time ??? carBAMazepine (TEGRETOL) 200 mg tablet Take 200 mg by mouth at bedtime. 07/18/2019 at Unknown time ??? carvedilol (COREG) 25 MG tablet Take 2 tablets (50 mg total) by mouth 2 times a day with meals.120 tablet 5 07/19/2019 at Unknown time ??? cloNIDine HCl (CATAPRES) 0.1 MG tablet Take 1 tablet (0.1 mg total) by mouth if needed. (Patient taking differently: Take 0.1 mg by mouth 2 times a day. ) 60 tablet 0 07/19/2019 at Unknown time ??? doxazosin (CARDURA) 8 MG tablet 8 mg 2 times a day. 07/19/2019 at Unknown time ??? entecavir (BARACLUDE) 0.5 MG tablet Take 1 tablet (0.5 mg total) by mouth every 72 hours. 15 tablet 11 07/19/2019 at Unknown time ??? ergocalciferol (VITAMIN D2) 50,000 unit capsule Take 50,000 Units by mouth once a week. 07/19/2019 at Unknown time ??? famotidine (PEPCID) 20 MG tablet Take 20 mg by mouth daily. 07/18/2019 at Unknown time ??? fluticasone propionate (FLONASE) 50 mcg/actuation nasal spray use 2 spray(s) in each nostril daily 11 07/18/2019 at Unknown time ??? gabapentin (NEURONTIN) 100 MG capsule Take 4 capsules (400 mg total) by mouth daily. 180 capsule 0 07/18/2019 at Unknown time ??? insulin glulisine U-100 (APIDRA U-100 INSULIN) 100 unit/mL injection Inject 5 Units subcutaneously 3 times a day with meals. 10 mL 0 07/19/2019 at Unknown time ??? insulin NPH isoph U-100 human (HUMULIN N NPH INSULIN KWIKPEN) 100 unit/mL (3 mL) InPn Inject subcutaneously 20 units in the AM and 8 units in the PM. 15 mL 5 07/19/2019 at Unknown time ??? lancets (ONETOUCH DELICA LANCETS) 33 gauge Misc Use 1 strip as directed 4 times daily before meals and at bedtime. 150 each 5 07/19/2019 at Unknown time ??? mycophenolate (CELLCEPT) 250 mg capsule Take 3 capsules (750 mg total) by mouth 2 times a day. 180 capsule 5 07/19/2019 at Unknown time ??? NIFEdipine (PROCARDIA-XL) 90 MG (OSM) 24 hr tablet Take 90 mg by mouth 2 times a day. 07/19/2019 at Unknown time ??? ondansetron (ZOFRAN-ODT) 4 MG disintegrating tablet every 8 hours as needed. Past Week at Unknown time ??? pen needle, diabetic 32 gauge x Ndle Use as directed to inject insulin 4 times daily. 150each 5 07/19/2019 at Unknown time ??? pen needle, diabetic 32 gauge x Ndle For use with insulin pen. Use as instructed. 150 each 5 07/19/2019 at Unknown time ??? polyethylene glycol (MIRALAX) 17 gram packet Take 17 g by mouth 2 times a day as needed. 100 packet 0 Past Week at Unknown time ??? sodium bicarbonate 650 MG tablet Take 2 tablets (1,300 mg total) by mouth 2 times a day. 120 tablet 0 07/19/2019 at Unknown time ??? tacrolimus ER, 24 HR, (ENVARSUS XR) 1 mg Tb24 Take 2 tablets (2 mg total) by mouth daily. Per Hepatology recommendations 60 tablet 5 07/19/2019 at Unknown time ??? torsemide (DEMADEX) 20 MG tablet Take 1 tablet (20 mg total) by mouth daily. 30 tablet 5 07/19/2019 at Unknown time Scheduled Medications: ??? aspirin 81 mg Oral Daily with [...] NPH 6 Units Subcutaneous Nightly (2099) ??? lidocaine 1 patch Transdermal Q24H ??? NIFEdipine 90 mg Oral BID ??? sodium bicarbonate 1,300 mg Oral BID ??? terazosin 10 mg Oral Nightly (2099) ??? valACYclovir 1,000 mg Oral 2 times per day Continuous Infusions: PRN medications: acetaminophen, aluminum & magnesium hydroxide-simethicone AND lidocaine HCl, benzocaine-menthol, dextrose 10% in water OR dextrose 10% in water, gabapentin, glucose, melatonin, ondansetron, phenol, polyethylene glycol, traMADol Allergies: Allergies Allergen Reactions ??? Codeine Sulfate Hyper ??? Codeine Other (See Comments) Becomes hyper Vital Signs Temp: [97.7 ??F (36.5 ??C)-98.4 ??F (36.9 ??C)] 98 ??F (36.7 ??C) Heart Rate: [71-84] 77 Resp: [11-18] 16 BP: (118-156)/(64-85) 144/80 Patient Vitals for the past 4 hrs: BP Temp Temp src Pulse Resp SpO2 07/23/19 1230 144/80 98 ??F (36.7 ??C) Oral 77 16 90 % 07/23/19 1020 155/79 -- -- 84 11 -- 07/23/19 1010 154/76 -- -- 81 18 -- Wt Readings from Last 3 Encounters: 07/22/19 (!) 301 lb 14.4 oz (136.9 kg) 07/01/19 (!) 292 lb 14.4 oz (132.9 kg) 02/28/19 (!) 282 lb (127.9 kg) Admit Wt: Weight: (!) 302 lb 1.6 oz (137 kg) Todays Wt: Weight: (!) 301 lb 14.4 oz (136.9 kg) Estimated body mass index is 47.28 kg/m?? as calculated from the following: Height as of this encounter: 5' 7 (1.702 m). Weight as of this encounter: 301 lb 14.4 oz (136.9 kg). Date 07/22/19699 - 07/23/1965807/23/19699 - 07/24/19 0659 Shift 7289-4218 6052-7256 0817-7401 24 Hour Total 0902-4731 0258-9267 0540-1545 24 Hour Total INTAKE P.O. 360 120 0 480 100 100 P.O. 360 120 0 480 100 100 Shift Total(mL/kg) 360(2.6) 120(0.9) 0(0) 480(3.5) 100(0.7) 100(0.7) OUTPUT Urine(mL/kg/hr) 200(0.2) 150(0.1) 500(0.5) 850(0.3) 400 400 Urine 200 150 500 850 400 400 Urine Occurrence 0 x 0 x Emesis/NG output 0 0 Emesis 0 0 Stool 0 0 Stool 0 0 Shift Total(mL/kg) 200(1.5) 150(1.1) 500(3.7) 850(6.2) 400(2.9) 400(2.9) Weight (kg) 136.9 136.9 136.9 136.9 136.9 136.9 136.9 136.9 RESPIRATORY Ventilator Setting: No data found. Fi02 Requirement: No data found. Last ABG: Lab Results Component Value Date PCO2 34 (L) 10/09/2017 [id number] 97.6 10/09/2017 Physical Exam General: A&Ox3, NAD, laying comfortably in bed HEENT: normocephalic, atraumatic Neck: neck supple and symmetrical Cardiac: regular rate and rhythm, no M/R/G, normal S1 and S2 Pulm: aerating well, bilaterally CTA, no crackles, no wheezes, no rhonchi Abd: normal bowel sounds, soft, non-tender to palpation, +obese, +L scar Extremities: atraumatic, no cyanosis, no LE edema Skin: atraumatic, no rashes or lesions Neuro: moving all extremities without difficulty, grossly intact Laboratory Data Recent Labs 07/21/19 1047 07/22/19 0616 07/23/19 0414 WBC 5.9 5.1 4.4 HGB 7.5* 7.9* 7.3* HCT 23.5* 24.3* 22.4* MCV 83.6 82.9 83.0 PLT 131* 133* 146 Recent Labs 07/21/19 0133 07/21/19 1047 07/22/19 0616 07/23/19 0414 NA 135 134 134 139 K 4.9 5.2 4.6 4.4 CL 101 100 99 103 CO2 21 21 21 21 BUN 61* 63* 67* 64* CREATININE 8.09* 8.65* 9.07* 8.86* GLUCOSE 190* 182* 191* 107* CALCIUM 7.4* 7.6* 7.3* 7.2* MG -- -- 1.9 2.0 PHOS 5.6* -- 5.9* 5.8* ANIONGAP 13 13 14 15 No results for input(s): INR, PROTIME, PTT in the last 72 hours. FSBS Range: Recent Labs 07/20/19 1703 07/20/19 2121 07/21/19 1044 07/21/19 1331 07/21/19 1828 07/21/199 07/22/19 1657 07/22/19 2135 07/23/19 1129 POCGMD 135* 151* 184* 172* 135* 142* 124* 159* 113* Recent Labs 07/22/19 0616 ALT 10 AST 11* ALKPHOS 81 BILITOT 0.3 Cardiac Labs: No results for input(s): CKTOTAL, CKMB, CKMBINDEX, TROPONINI, BNP, NTPROBNP in the last 72 hours. No results for input(s): CHOLTOT, TRIG, HDL, CHOLHDL, LDL in the last 72 hours. Invalid input(s): VLDCHOL Lab Results Component Value Date HGBA1C 6.8 (A) 07/18/2019 HGBA1C 7.2 (A) 05/15/2019 HGBA1C 7.4 (H) 12/13/2018 Nephro Labs: No results for input(s): COLORU, CLARITYU, PH, PROTEINUA, PHUR, LABSPEC, GLUCOSEU, BLOODU, LEUKOCYTESUR, NITRITE, BILIRUBINUR, UROBILINOGEN, RBCUA, WBCUA, BACTERIA, AMORPHOUS, CRYSTAL, CASTS in the last 72 hours. Invalid input(s): KEYTONESU No results for input(s): NAUR, KUR, CLUR in the last 72 hours. Invalid input(s): CO2UR, CRUR No results found for: MICROALBUR, [id number] Lab Results Component Value Date PTH 164.0 (H) 01/14/2019 CALCIUM 7.2 (L) 07/23/2019 PHOS 5.8 (H) 07/23/2019 Lab Results Component Value Date [id number] 15.8 (L) 01/14/2019 Anemia Labs: Lab Results Component Value Date IRON 24 (L) 07/21/2019 TIBC 202 (L) 07/21/2019 FERRITIN 433.9 (H) 07/21/2019 Lab Results Component Value Date [id number] 499 07/22/2019 Sepsis Marker Labs: No results for input(s): LACTATE in the last 72 hours. Lab Results Component Value Date FIBRINOGEN 454 (H) 07/20/2019 No results for input(s): TEGANGLE, TEGKTIME, [id number], TEGMAXAMPL, TEGRTIME, CBMZ in the last 72 hours. No results for input(s): ESR, CRP in the last 72 hours. No results found for: ESR, CRP Infectious Labs Urine cx: Lab Results Component [...] found for: HIV1X2 No results found for: [id number] No results found for: VDRLCSF Lab Results Component Value Date HEPAIGM Nonreactive 07/22/2019 HEPBCAB Nonreactive 07/22/2019 No results found for: [id number] No results found for: [id number] Diagnostic Studies Renal Ultrasound: Results for orders placed during the hospital encounter of 06/27/19 US Retroperitoneal complete Narrative EXAM: US RETROPERITONEAL COMPLETE INDICATION: CARMEN on CKD, COMPARISON: Abdominal ultrasound dated 01/12/2019 TECHNIQUE: Grayscale and color Doppler imaging acquisition was performed for evaluation of the kidneys and urinary bladder. FINDINGS: Right Kidney: 9.9 x 5.3 x 5.1 cm. There is no hydronephrosis. Normal echogenicity. No masses or calculi are appreciated. Left Kidney: 10.4 x 5.6 x 5.7 cm. There is no hydronephrosis. Normal echogenicity. No masses or calculi are appreciated. Bladder: Evaluation of the bladder is limited, but is grossly unremarkable. Other: None Impression IMPRESSION: Normal renal ultrasound. Approved by Jimmy Velasquez MD on 06/28/2019 3:29 PM EST I have personally reviewed the images and I agree with this report. Report Verified by: Lion Mike MD at 06/28/2019 4:36 PM EST No results found for this or any previous visit. Radiology last 48 hours: X-ray Portable Chest Result Date: 07/20/2019 EXAM: XR PORTABLE CHEST INDICATION: Dyspnea, unspecified TECHNIQUE: Portable AP view of the chest. COMPARISON: 01/12/2019 FINDINGS: Exam was performed on 07/20/2019 4:47 AM EST. Medical Devices: None. Heart and Mediastinum: Cardiomediastinal silhouette is within normal limits. Lungs and Pleura: Lungs a re clear with no focal consolidations or pleural effusions. No evidence for pneumothorax. Bones: Noacute osseous abnormalities. IMPRESSION: Negative portable chest. Approved by Felice Arnett MD on 07/20/2019 5:57 AM EST I have personally reviewed the images and I agree with this report. Report Verified by: William Mathew MD at 07/20/2019 6:13 AM EST Medical Decision Making: Leoncio Rollins is a 44 y.o. male with Udwas-qo-anbuyix kidney injury (CMS Dx). Medical problems being addressed in this encounter include the following: Principal Problem: Yhpoy-kb-sssvdkv kidney injury (CMS Dx) Active Problems: Group C streptococcal infection In addition to the above an extensive amount of complex data in the patients lab and chart were reviewed. Morbidity / complication risk is felt to be: moderate / high. Assessment and Plan: Leoncio Rollins is a 44 y.o. male with a past medical history of JC on CPAP, CKD, KIM Cirrhosis with EV s/p??liver transplant??09/2017 who presented on 07/19/2019 with Fevers. Nephrology is consulted for CARMEN. #) Oliguric Acute Kidney Injury (CARMEN) on CKD stage 4-5: - Baseline creatinine: 4.4-4.9 ; admission creatinine 7.7. KDIGO Stage: 1-2. - Baseline CKD stage 4-5. Etiology unclear. He declined renal biopsy previously. Known to have nephrotic range proteinuria: serologies negative except TERESA 1:160 and faint monoclonal band on SPEP on 02/28/19. Etiology of CKD and proteinuria unclear - diabetic nephropathy is possible He has a prior poor renal reserve. Now came in with infection - blood cultures + from OSH. Likely this tipped him over. Got TDC today AM. Consented for dialysis Will initiate dialysis today. #) Electrolytes: - No acute concerns. Hyperphosphatemia. Will try and manage with HD May need phosphate binders. Lab Results Component Value Date CREATININE 8.86 (H) 07/23/2019 BUN 64 (H) 07/23/2019 NA 139 07/23/2019 K 4.4 07/23/2019 CL 103 07/23/2019 CO2 21 07/23/2019 Lab Results Component Value Date PTH 164.0 (H) 01/14/2019 CALCIUM 7.2 (L) 07/23/2019 PHOS 5.8 (H) 07/23/2019 #) Acid/Base: NAGMA? - CO2 21 - Home med: sodium bicarb tabs 1.3g BID = continue. - Labs: Lab Results Component Value Date PHART 7.41 10/09/2017 PCO2 34 (L) 10/09/2017 PO2ART 123 (H) 10/09/2017 [id number] 21 (L) 10/09/2017 BEART -2.9 (L) 10/09/2017 [id number] 97.6 10/09/2017 #) Volume Status: - Euvolemic. Intake/Output Summary (Last 24 hours) at 07/23/2019 1409 Last data filed at 07/23/2019 1230 Gross per 24 hour Intake 220 ml Output 1050 ml Net -830 ml #) Blood Pressures: Hypertension: - Home meds: coreg 50mg BID, clonidine 0.1mg BID, nifedipine 90mg BID (rather high dose), [id number] nightly, Torsemide held. - Per primary team #) Anemia in Chronic Kidney Disease: - Hgb 12 from a few days prior to admission, seems inaccurate. - Hgb 7.3 today - Iron studies / Ferritin: JOSE ALFREDO from 05/2019 - B12 and Folate #) Chronic Kidney Disease-Bone Mineral Disorder: Secondary Hyperparathyroidism: - Home: Ergo 50,000 u weekly. Recommendations: Consented for IHD. IHD 2 hrs today low flows nil UF. Will start IV iron from tomorrow on HD. Enrike Mccracken MD Div. of Nephrology and Hypertension. [facility]. Cell: [phone]. E-mail: [email or web address]. Cosigned by Li Rossi MD at 07/23/2019 3:21 PM EST Associated attestation - Li Rossi MD - 07/23/2019 3:21 PM EST I have seen and examined the patient, reviewed the notes, assessments, and/or procedures performed by the fellow/resident/DANCE COSTUME DESIGNER and I concur with her/his documentation of the patient. Review of labs, pathology reports, radiograph reports, and medical records confirm the findings noted above. I have edited the note where appropriate. I have discussed my findings and recommendations with the patient/family when appropriate and answered their questions. CARMEN with CKD stage 5. Now end-stage kidney disease. Received TDC. First session of IHD today (initiation). Iv venofer 300 mg*3 dose with IHD. OK to stop bicarbonate since being started on dialysis. Li Rossi MD, MS Division of Nephrology [facility] [address] [facility] - [place], [id number] * Keon Brown MD - 07/23/2019 1:46 PM EST Patient now has TDC, will get HD today. OK for IV contrast. Keon Brown MD Med-Peds PGY-3 * Dav Johnson MD - 07/23/2019 11:56 AM EST INFECTIOUS DISEASE PROGRESS NOTE 07/23/2019 11:49 AM Leoncio Rollins is a 44 y.o. male patient. Hospital Day: 4 Chief Complaint/Reason for Follow-up: bacteremia Subjective: Main complaints are throat and chest pain Afebrile Not able to eat Threw up this AM Review of Systems Constitutional: Negative for chills and fever. HENT: Positive for mouth sores and sore throat. Respiratory: Negative for cough and shortness of breath. Cardiovascular: Positive for chest pain and palpitations. Gastrointestinal: Positive for vomiting. Negative for abdominal pain and diarrhea. Skin: Negative for rash and wound. Objective: Vital signs: Vitals: 07/23/19 1020 BP: 155/79 Pulse: 84 Resp: 11 Temp: SpO2: Temp last 24 hours:Temp (24hrs), Av.1 ??F (36.7 ??C), Min:97.7 ??F (36.5 ??C), Max:98.4 ??F (36.9 ??C) Scheduled Meds: ??? aspirin 81 mg Oral Daily with breakfast ??? carBAMazepine 200 mg Oral Nightly (2099) ??? carvedilol 50 mg Oral BID WC ??? cefTRIAXone (ROCEPHIN) IVPB 2 g Intravenous Q24H ??? cloNIDine HCl 0.1 mg Oral BID ??? [START ON 07/27/2019] [...] NPH 6 Units Subcutaneous Nightly (2099) ??? lidocaine 1 patch Transdermal Q24H ??? NIFEdipine 90 mg Oral BID ??? sodium bicarbonate 1,300 mg Oral BID ??? tacrolimus ER (24 HR) 3 mg Oral DAILY 0700 ??? terazosin 10 mg Oral Nightly (2099) ??? valACYclovir 1,000 mg Oral 2 times per day Continuous Infusions: PRN Meds:acetaminophen, aluminum & magnesium hydroxide-simethicone AND lidocaine HCl, benzocaine-menthol, dextrose 10% in water OR dextrose 10% in water, gabapentin, glucose, melatonin, ondansetron, phenol, polyethylene glycol, traMADol Intake/Output last 3 shifts: Date 07/22/19699 - 07/23/1965807/23/19699 - 07/24/1960 Shift 8915-4477 4741-4276 4962-5615 24 Hour Total 6146-2483 3670-3787 1635-3366 24 Hour Total INTAKE P.O. 360 120 0 480 100 100 P.O. 360 120 0 480 100 100 Shift Total(mL/kg) 360(2.6) 120(0.9) 0(0) 480(3.5) 100(0.7) 100(0.7) OUTPUT Urine(mL/kg/hr) 200(0.2) 150(0.1) 500(0.5) 850(0.3) 250 250 Urine 200 150 500 850 250 250 Urine Occurrence 0 x 0 x Emesis/NG output 0 0 Emesis 0 0 Stool 0 0 Stool 0 0 Shift Total(mL/kg) 200(1.5) 150(1.1) 500(3.7) 850(6.2) 250(1.8) 250(1.8) Weight (kg) 136.9 136.9 136.9 136.9 136.9 136.9 136.9 136.9 Physical Exam Constitutional: General: He is not in acute distress. HENT: Mouth/Throat: Comments: 2 large ulcers on posterior hard palate Eyes: General: No scleral icterus. Pupils: Pupils are equal, round, and reactive to light. Cardiovascular: Rate and Rhythm: Normal rate. Heart sounds: No murmur. Pulmonary: Breath sounds: No wheezing or rales. Abdominal: General: There is no distension. Palpations: Abdomen is soft. Skin: General: Skin is warm and dry. Neurological: Mental Status: He is alert. Psychiatric: Mood and Affect: Mood normal. Behavior: Behavior normal. Labs: Lab 07/23/194 WBC 4.4 HEMOGLOBIN 7.3* HEMATOCRIT 22.4* MEAN CORPUSCULAR VOLUME 83.0 PLATELETS 146 Lab 07/23/194 SODIUM 139 POTASSIUM 4.4 CHLORIDE 103 CO2 21 BUN 64* CREATININE 8.86* GLUCOSE 107* CALCIUM 7.2* MAGNESIUM 2.0 PHOSPHORUS 5.8* Lab 07/22/19 0616 ALK PHOS 81 AST 11* ALT 10 BILIRUBIN TOTAL 0.3 BILIRUBIN DIRECT 0.04 Lab 07/19/19 2357 PROTHROMBIN TIME 15.0 INR 1.1 Assessment/Plan: 44 y.o. M s/p OLT 09/2017 admitted for sore throat and falls, found to have bacteremia and oral ulcerations 1. Group C strep bacteremia - continue Ceftriaxone 2g IV q24 while inpatient - anticipate a 2 week course, with transition either to oral or with HD abx at d/c - presume source is the mucositis, oral ulceration - CT A/P and TTE negative for source 2. Oral ulcers - swab the ulcers for HSV and CMV PCRs (you will have to physically get the viral transport media x2 and swab this personally; a nurse should not do this) - doesn't look like thrush - currently on what is likely a super-therapeutic dose given CrCl; decrease to 500mg daily - viscous lidocaine swish for symptoms - send urine and serum Histo Ag's - if no improvement, may need biopsy per ENT 3. CMV viremia - unclear significance, PCR q7 days - swab ulcers for CMV as above Dav Johnson MD 07/23/[phone] * NAVNEET Collins - 07/23/2019 9:40 AM EST Leoncio Rollins is a 44 y.o. male with history cirrhosos s/p OLT with fevers and CARMEN on CKD. 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 History of bacteremia, culture negative since 07/20/2019. Review of Systems Constitutional: Negative for chills and fever. HENT: Negative for hearing loss and tinnitus. Eyes: Negative for blurred vision and double vision. Respiratory: Negative for cough and hemoptysis. Cardiovascular: Negative for chest pain and palpitations. Gastrointestinal: Negative for heartburn and nausea. Genitourinary: Negative for dysuria and urgency. Musculoskeletal: Negative for myalgias and neck pain. Skin: Negative for itching and rash. Neurological: Negative for dizziness and headaches. Endo/Heme/Allergies: Negative for environmental allergies. Does not bruise/bleed easily. Psychiatric/Behavioral: Negative for depression. Vitals: 07/22/19 1632 07/22/19 2123 07/23/19 0849 07/23/19 0930 BP: 118/66 129/64 138/77 156/74 BP Location: Left arm Left arm Left arm Patient Position: Sitting Lying Lying Pulse: 71 76 79 81 Resp: 16 18 16 15 Temp: 98.4 ??F (36.9 ??C) 98.2 ??F (36.8 ??C) 97.7 ??F (36.5 ??C) TempSrc: Oral Oral Oral SpO2: 90% 92% Weight: Height: Physical Exam Constitutional: Appearance: Normal appearance. HENT: Head: Normocephalic and atraumatic. Eyes: Extraocular Movements: Extraocular movements intact. Pupils: Pupils are equal, round, and reactive to light. Cardiovascular: Rate and Rhythm: Normal rate and regular rhythm. Pulmonary: Effort: Pulmonary effort is normal. Abdominal: General: Abdomen is flat. Bowel sounds are normal. Palpations: Abdomen is soft. Musculoskeletal: Normal range of motion. Skin: General: Skin is warm. Neurological: General: No focal deficit present. Mental Status: He is alert. Psychiatric: Mood and Affect: Mood normal. [facility] PRE SEDATION EVAL - deferred Plan: 1. Placement of TDC with local anesthetic and fentanyl only 2. Ancef 2 g IV 3. Blood cultures have remained negative Consent obtained in IR Ahsan TOTH-C [phone] * Maru Carlson - 07/23/2019 8:25 AM EST Gastroenterology Inpatient Progress Note Mr. Rollins is a 44 year old man with a history of KIM cirrhosis s/p liver transplant in 2018 and CKD who presents with fevers and acute on chronic kidney injury. S: Patient had severe throat pain overnight and no prn pain medicine was available. Patient states that numbing spray does not help. No abdominal pain is present. Patient has been NPO, but otherwise is not able to eat or drink due to throat pain. Patient states that he is ready for dialysis. He is getting dialysis catheter placed by IR today and should get dialysis later today or tomorrow. Labs: Lab Results Component Value Date CREATININE 8.86 (H) 07/23/2019 BUN 64 (H) 07/23/2019 NA 139 07/23/2019 K 4.4 07/23/2019 CL 103 07/23/2019 CO2 21 07/23/2019 Lab Results Component Value Date ALKPHOS 81 07/22/2019 ALT 10 07/22/2019 AST 11 (L) 07/22/2019 BILITOT 0.3 07/22/2019 ALBUMIN 2.9 (L) 07/23/2019 BILIDIRECT 0.04 07/22/2019 PROT 5.7 (L) 07/22/2019 Imaging: CT abdomen/pelvis: normal, no bleed CT head: normal, no bleed Echo: no endocarditis present, diastolic dysfunction present O: Vitals: 07/23/19 0849 BP: 138/77 Pulse: 79 Resp: 16 Temp: 97.7 ??F (36.5 ??C) SpO2: 92% General: patient has an obese body habitus and appears well, no acute distress ENT: Two ulcers present on soft palate, rhinorrhea present, no posterior pharyngeal edema or cobblestoning Heart: regular rate and rhythm, no gallops, rubs, or murmur Lungs: rales present bilaterally in lower lung simmons, no wheezes, normal aeration and normal work of breathing Abdomen: Hepatomegaly present, non-distended, non-tender, normal bowel sounds Extremities: no extremity edema, sensation intact Neuro: a&ox4 Psych: mood appropriate A: Mr. Rollins is a 44 year old man with a history of KIM cirrhosis s/p liver transplant in 2018 and CKD who presents with fevers and acute on chronic kidney injury. Patient is in significant pain from HSV esophagitis. Attempting to control with GI cocktail, may need prn narcotics. Hemodynamically stable and afebrile. Bacteremia -continue IV ceftriaxone -echo showed no evidence of endocarditis -can switch to PO antibiotics for discharge Acute on chronic renal failure -getting dialysis catheter late today or tomorrow -continue trending renal labs -will likely need dialysis tomorrow Pharyngitis, possible esophagitis -valcyclovir for potential herpes infection -need EGD to assess for esophagitis Anemia -7.9-->7.3, continue to monitor -likely anemia of chronic disease according to Fe studies Diabetes -stable during hospital stay HTN -stable during hospital stay Dispo: Needs EGD to assess esophagitis, starting dialysis, continue to monitor for infections. Maru Carlson MS3 Cosigned by Marcelino Fox MD at 07/24/2019 3:15 PM EST Associated attestation - Marcelino Fox MD - 07/24/2019 3:15 PM EST See my note earlier today on resident's progress note * Keon Brown MD - 07/23/2019 7:42 AM EST Department of Internal Medicine Progress Note Patient: Leoncio Rollins CSN: [id number] Chief Complaint Fever at OSH, elevated Cr History of Present Illness Leoncio Rollins is a 44 y.o. male with a history of JC on CPAP, CKD, KIM Cirrhosis with EV s/p??liver transplant??09/2017 who presents as direct admit from OSH due to concern for infection and CARMEN insetting of previous transplant on immunosuppression. Interval History NAOE, hemodynamically stable Mr. Rollins is feeling okay, although he is still having back pain and a sore throat. He is making less urine today and his kidney function is poor but stable, with a non-critical metabolic derangement. Should be okay to wait on dialysis for now. Assessment & Plan Leoncio Rollins is a 44 y.o. male being admitted to the hospital for fever and CARMEN. Medical problemsbeing addressed in this encounter include the following: Principal Problem: Klxfn-mb-rvptgxj kidney injury ([facility] Dx) Today's updated plan: - TDC today, iHD with Feper renal - Tx ID: continue rocephin in house but OK to transition to PO amox - Tx ID: HSV and CMV oral swab, CT neck pending, valtrex empirically #Pharyngitis, Pharyngeal Ulcers: likely group c strep pharyngitis, but cannot r/o other cause in immunocompromised patient including CMV, HSV. Possibility that ulcer was source for bacteremia with other underlying viral etiology. -HSV and CMV swab -CMV PCR quant -valacyclovir 500 mg daily empirically given renal failure -rocephin, day 4 in house - GI cocktail, tramadol prn pain #Fever in immunocompromised patient - blood cx grew Grp C Strep at OSH, repeat showed NGTD since 07/20 - transplant ID consulted, appreciate recs - CTX 2g daily, day 4 in house, can transition to oral abx on discharge - pharyngitis w/u as above - holding cellcept; starting cyclosporine as below - hepatology and transplant ID following ?? #Acute on chronic kidney injury: Baseline Cr 4-5, 7 on admission, oliguric and rising SCr. Etiologyunclear, previously follow-up with renal for transplant eval but declined biopsy. Failed fluid challenge. - Consult transplant nephrology, appreciate recs - hold home torsemide - strict I/O - s/p TDS 07/23, iHD per nephrology today ?? # Acute on chronic anemia likely 2/2 anemia of chronic disease with JOSE ALFREDO component. - pt recently admitted in Jun. Patient received 1 unit PRBCs on 06/29. Hemolysis labs negative at that time.?? Received SQ aranesp prior to discharge. Received 2 units PRBC, Hb stable at 7.5 in house. 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 Stable but having poor oral intake from pharyngitis - NPH 18 in am, 6 in pm with 3u TID AC with SSI ?? #Hypertension: near goal, occasional increases in BP - continue on coreg, clonidine, nifedipine, and terazosin - holding torsemide ?? #Neuropathic pain -gabapentin 200mg nightly PRN due to renal failure # RLS - continue carbamazepine Review of Systems Gen: + fatigue No weight loss, no fevers, no chills, no night sweats HEENT: +two ulcerated lesions on posterior palate, No lymphadenopathy, no vision changes CV: No chest pain, no palpitations Resp: No cough, no shortness of breath, no sputum GI: + diarrhea, no constipation, no nausea, no vomiting : No dysuria, no discharge MSK: + sided chest wall pain from recent fall, No myalgia, no arthralgia Neuro: No seizure, no weakness, no headache Endo: No polyuria, no cold intolerence Heme: No easy bruising, no easy bleeding Derm: No rash, no wound Past Medical History Past Medical History: Diagnosis [...] file Gets together: Not on file Attends roman catholic service: Not on file Active member of [...] Feng CNP blood-glucose meter (ONETOUCH VERIO SYSTEM) [facility] [place] as instructed. 10/18/17 Bere Feng CNP carBAMazepine (TEGRETOL) 200 mg tablet Take 200 mg by mouth at bedtime. Historical Provider, carvedilol (COREG) 25 MG tablet Take 2 tablets (50 mg total) by mouth 2 times a day with meals. 10/26/17 Bere Feng CNP cloNIDine HCl (CATAPRES) 0.1 MG tablet Take 1 tablet (0.1 mg total) by mouth if needed. Patient taking differently: Take 0.1 mg by mouth 2 times a day. 01/17/19 Niurka Valles MD doxazosin (CARDURA) 8 MG tablet 8 mg 2 times a day. 05/12/18 Historical Provider, entecavir (BARACLUDE) 0.5 MG tablet Take 1 tablet (0.5 mg total) by mouth every 72 hours. 07/01/19 Malinda Rhodes MD ergocalciferol (VITAMIN D2) 50,000 unit capsule [...] and at bedtime. 10/18/17 Bere Feng CNP mycophenolate (CELLCEPT) 250 mg capsule Take 3 capsules (750 mg total) by mouth 2 times a day. 06/25/19 Arnold Ordoñez MD NIFEdipine (PROCARDIA-XL) 90 MG [...] Use as instructed. 10/16/17 Bere Feng CNP polyethylene glycol (MIRALAX) 17 gram packet Take 17 g by mouth 2 times a day as needed. 01/17/19 Niurka Valles MD sodium bicarbonate 650 MG tablet Take 2 tablets (1,300 mg total) by mouth 2 times a day. 07/01/19 Malinda Rhodes MD tacrolimus ER, 24 HR, (ENVARSUS XR) 1 mg Tb24 Take 3 tablets (3 mg total) by mouth daily. Per Hepatology recommendations 07/01/19 Malinda Rhodes MD torsemide (DEMADEX) 20 MG tablet Take 1 tablet (20 mg total) by mouth daily. 03/01/19 Aris Moctezuma MD Inpatient Meds: Scheduled: Continuous: PRN: Vital Signs Temp: [98.2 ??F (36.8 ??C)-98.5 ??F (36.9 ??C)] 98.2 ??F (36.8 ??C) Heart Rate: [65-76] 76 Resp: [16-18] 18 BP: (108-132)/(64-73) 129/64 Intake/Output Summary (Last 24 hours) at 07/23/2019 0742 Last data filed at 07/23/2019 0237 Gross per 24 hour Intake 480 ml Output 850 ml Net -370 ml Physical Exam Vital signs reviewed. General: Well appearing, obese age appropriate male, in no acute distress JOLANTA: Normocephalic, atraumatic, PERRL, EOMs intact. OP per media tap with 2 white plaques on soft palate Neck: No JVD, trachea midline Heart: Regular rate and rhythm, no murmurs, rubs, gallops Lungs: Clear to auscultation bilaterally, no wheezes or rales, normal work of breathing Chest: quarter-sized bruise on L side of chest wall. R sided TDC c/d/i Back: Symmetric, no CVA tenderness Abdomen: Soft, obese, non-tender, distended, + liver transplant scar Extremities: No clubbing, 2+ pitting edema to mid calf bilaterally, no asterixis Skin: No rashes, no wounds, no jaundice Neuro: AOx4, moves all 4 extremities, follows commands Psych: Alert and appropriate, normal affect Laboratory Data Lab 07/23/19 0414 07/22/19 0616 07/21/19 1047 07/21/19 013 WBC 4.4 5.1 5.9 5.7 HEMOGLOBIN 7.3* 7.9* 7.5* 7.3* HEMATOCRIT 22.4* 24.3* 23.5* 22.6* MEAN CORPUSCULAR VOLUME 83.0 82.9 83.6 84.1 PLATELETS 146 133* 131* 131* Lab 07/23/19 0414 07/22/19 0616 07/21/19 1047 07/21/19 013 SODIUM 139 134 134 135 POTASSIUM 4.4 4.6 5.2 4.9 CHLORIDE 103 99 100 101 CO2 21 21 21 21 BUN 64* 67* 63* 61* CREATININE 8.86* 9.07* 8.65* 8.09* GLUCOSE 107* 191* 182* 190* Lab 07/23/19 0414 07/22/19 0616 07/21/19 1047 07/21/19 0133 07/20/19 0628 07/19/19 2357 CALCIUM 7.2* 7.3* 7.6* 7.4* 7.4* 7.3* MAGNESIUM 2.0 1.9 -- -- -- 1.7 PHOSPHORUS 5.8* 5.9* -- 5.6* 4.1 4.9* Lab 07/19/19 2357 INR 1.1 PROTHROMBIN TIME 15.0 Lab 07/23/19 0414 07/22/19 0616 07/21/19 0133 07/20/19 0628 07/19/19 2357 07/18/19 0940 ALT -- 10 -- 8 6* 18 AST -- 11* -- 15 12* 20 ALK PHOS -- 81 -- 87 98 77 BILIRUBIN TOTAL -- 0.3 -- 0.3 0.3 0.28 BILIRUBIN DIRECT -- 0.04 -- 0.07 0.05 -- ALBUMIN 2.9* 3.0* 3.0* 3.1* 3.2* 3.2* 3.3* 3.3* 4.2 Lab 07/20/19 0606 COLOR, URINE Yellow CLARITY Cloudy* SPECIFIC GRAVITY, URINE 1.017 PH UA 6.0 PROTEIN UA >=500* GLUCOSE UA 150* KETONES UA Negative BILIRUBIN UA Negative BLOOD UA Small* NITRITE UA Negative UROBILINOGEN UA <2.0 LEUKOCYTES UA Negative RBC UA 6* WBC UA 1 BACTERIA Few* MUCUS Present* Lab 07/20/19 0952 CK TOTAL 370* No results found for: NTPROBNP Lab Results Component Value Date TSH 2.02 12/20/2017 FREET4 1.03 10/20/2017 Lab 07/22/19 2135 07/22/19 1657 07/21/19 1959 07/21/19 1828 POC GLU MONITORING DEVICE 159* 124* 142* 135* Diagnostic Studies CT Abdomen and Pelvis WO IV contrast Final Result IMPRESSION: No acute findings in the abdomen/pelvis. Approved by Leeroy Jo MD on 07/21/2019 10:26 AM EST I have personally reviewed the images and I agree with this report. Report Verified by: Manolo Rosenthal MD at 07/21/2019 10:[address] Head WO contrast Final Result IMPRESSION: 1. No acute intracranial abnormality. Report Verified by: Eleanor Mtz at 07/21/2019 9:53 AM EST X-ray Portable Chest Final Result IMPRESSION: Negative portable chest. Approved by Felice Arnett MD on 07/20/2019 5:57 AM EST I have personally reviewed the images and I agree with this report. Report Verified by: William Mathew MD at 07/20/2019 6:[address] Neck With IV contrast (Results Pending) Nutrition: Diet Orders Diet NPO past midnight Except for: except sips with meds starting at 07/22 9299 Code Status: Full Code Signed: KEON BROWN MD 07/23/2019, 7:42 AM Cosigned by Marcelino Fox MD at 07/24/2019 8:15 AM EST Associated attestation - Marcelino Fxo MD - 07/24/2019 8:15 AM EST Found tgo have 2 ulcers on soft pallette. They are painful and interfere with swallowing. Gets somerelief with GI cocktail. Will do EGD to look for similar lesions in esophagus. Possible Herpes. Hasbeen started on Valgancyclovir. Tunnel catheter p;laced and ready for dialysis. I saw and examined the patient. I discussed with the resident or fellow and agree with Titus's findings and plan as documented in the note. Marcelino Fox MD * Stan Larios DO - 07/22/2019 4:25 PM EST Department of Internal Medicine Progress Note Patient: Leoncio Rollins CSN: [id number] Chief Complaint Fever at OSH, elevated Cr History of Present Illness Leoncio Rollins is a 44 y.o. male with a history of JC on CPAP, CKD, KIM Cirrhosis with EV s/p??liver transplant??09/2017 who presents as direct admit from OSH due to concern for infection and CARMEN insetting of previous transplant on immunosuppression. Interval History NAOE, hemodynamically stable Mr. Rollins is feeling okay, although he is still having back pain and a sore throat. He is making less urine today and his kidney function is poor but stable, with a non-critical metabolic derangement. Should be okay to wait on dialysis for now. Assessment & Plan Leoncio Rollins is a 44 y.o. male being admitted to the hospital for fever and CARMEN. Medical problemsbeing addressed in this encounter include the following: Principal Problem: Rkipm-xn-gibjxxm kidney injury ([facility] Dx) Today's updated plan: 1) TTE to r/o endocarditis 2) Tunneled dialysis line with IR tomorrow 3) Dialysis in PM 4) HSV oral swab 5) Officially consulting liver 6) Starting valtrex #sore throat likely group c strep pharyngitis, but cannot r/o other cause in immunocompromised patient -HSV swab -CMV PCR quant -valacyclovir 1000mg BID -CTX for bacteremia should provide bacterial coverage #Fever in immunocompromised patient - blood cx grew Grp C Strep at OSH, repeat showed NGTD since 07/20 - CTX 2g daily, can transition to oral abx on discharge - holding cellcept, on home tacrolimus, hepatology and transplant ID following ?? #Acute on chronic kidney injury - Baseline Cr 4-5, 7 on admission, K 5.4 on admission, BUN 58 - Consult transplant nephrology - hold home torsemide - gentle IVF - strict I/o - transplant nephro following ?? # Acute on chronic anemia likely 2/2 anemia of chronic disease - pt recently admitted in Jun. Patient received 1 unit PRBCs on 06/29. Hemolysis labs negative at thattime.?? 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 #Hypertension - continue on coreg, clonidine, nifedipine, and terazosin - holding torsemide ?? #Neuropathic pain -gabapentin 400mg nightly PRN # RLS - continue carbamazepine Review of Systems Gen: + fatigue No weight loss, no fevers, no chills, no night sweats HEENT: +two ulcerated lesions on posterior palate, No lymphadenopathy, no vision changes CV: No chest pain, no palpitations Resp: No cough, no shortness of breath, no sputum GI: + diarrhea, no constipation, no nausea, no vomiting : No dysuria, no discharge MSK: + sided chest wall pain from recent fall, No myalgia, no arthralgia Neuro: No seizure, no weakness, no headache Endo: No polyuria, no cold intolerence Heme: No easy bruising, no easy bleeding Derm: No rash, no wound Past Medical History Past Medical History: Diagnosis [...] file Gets together: Not on file Attends roman catholic service: Not on file Active member of [...] Feng CNP blood-glucose meter (ONETOUCH VERIO SYSTEM) [facility] [place] Use as instructed. 10/18/17 Bere Feng CNP carBAMazepine (TEGRETOL) 200 mg tablet Take 200 mg by mouth at bedtime. Historical Provider, carvedilol (COREG) 25 MG tablet Take 2 tablets (50 mg total) by mouth 2 times a day with meals. 10/26/17 Bere Feng CNP cloNIDine HCl (CATAPRES) 0.1 MG tablet Take 1 tablet (0.1 mg total) by mouth if needed. Patient taking differently: Take 0.1 mg by mouth 2 times a day. 01/17/19 Niurka Valles MD doxazosin (CARDURA) 8 MG tablet 8 mg 2 times a day. 05/12/18 Historical Provider, entecavir (BARACLUDE) 0.5 MG tablet Take 1 tablet (0.5 mg total) by mouth every 72 hours. 07/01/19 Malinda Rhodes MD ergocalciferol (VITAMIN D2) 50,000 unit capsule [...] and at bedtime. 10/18/17 Bere Feng CNP mycophenolate (CELLCEPT) 250 mg capsule Take 3 capsules (750 mg total) by mouth 2 times a day. 06/25/19 Arnold Ordoñez MD NIFEdipine (PROCARDIA-XL) 90 MG (OSM) 24 hr tablet Take 90 mg by mouth 2 times a day. 04/23/18 Historical ProviderMD ondansetron (ZOFRAN-ODT) 4 MG disintegrating tablet every 8 hours as needed. 04/11/18 Historical Provider, MD way needle diabetic 32 gauge x 532 Ndle Use as directed to inject insulin 4 times daily. 10/16/17 RAMON Hernandez needle diabetic 32 gauge x 5/32 Ndle For use with insulin pen. Use as instructed. 10/16/17 Bere Feng CNP polyethylene glycol (MIRALAX) 17 gram packet Take 17 g by mouth 2 times a day as needed. 01/17/19 Niurka Valles MD sodium bicarbonate 650 MG tablet Take 2 tablets (1,300 mg total) by mouth 2 times a day. 07/01/19 Malinda Rhodes MD tacrolimus ER, 24 HR, (ENVARSUS XR) 1 mg Tb24 Take 3 tablets (3 mg total) by mouth daily. Per Hepatology recommendations 07/01/19 Malinda Rhodes MD torsemide (DEMADEX) 20 MG tablet Take 1 tablet (20 mg total) by mouth daily. 03/01/19 Aris Moctezuma MD Inpatient Meds: Scheduled: Continuous: PRN: Vital Signs Temp: [98.2 ??F (36.8 ??C)-99.3 ??F (37.4 ??C)] 98.2 ??F (36.8 ??C) Heart Rate: [65-87] 73 Resp: [16] 16 BP: (108-153)/(68-79) 108/73 Intake/Output Summary (Last 24 hours) at 07/22/2019 1625 Last data filed at 07/22/2019 1400 Gross per 24 hour Intake 1318 ml Output 1350 ml Net -32 ml Physical Exam Vital signs reviewed. General: Well appearing, obese age appropriate male, in no acute distress JOLANTA: Normocephalic, atraumatic, PERRL, EOMs intact Neck: No JVD, trachea midline Heart: Regular rate and rhythm, no murmurs, rubs, gallops Lungs: Clear to auscultation bilaterally, no wheezes or rales, normal work of breathing Chest: quarter-sized bruise on L side of chest wall Back: Symmetric, no CVA tenderness Abdomen: Soft, obese, non-tender, distended, + liver transplant scar Extremities: No clubbing, 2+ pitting edema to mid calf bilaterally, no asterixis Skin: No rashes, no wounds, no jaundice Neuro: AOx4, moves all 4 extremities, follows commands Psych: Alert and appropriate, normal affect Laboratory Data Lab 07/22/19 0616 07/21/19 1047 07/21/19 0133 07/20/19 0628 WBC 5.1 5.9 5.7 5.5 HEMOGLOBIN 7.9* 7.5* 7.3* 6.7* HEMATOCRIT 24.3* 23.5* 22.6* 21.0* MEAN CORPUSCULAR VOLUME 82.9 83.6 84.1 83.5 PLATELETS 133* 131* 131* 134* Lab 07/22/19 0616 07/21/19 1047 07/21/19 0133 07/20/19 06 SODIUM 134 134 135 132* POTASSIUM 4.6 5.2 4.9 4.9 CHLORIDE 99 100 101 101 CO2 21 21 21 19* BUN 67* 63* 61* 57* CREATININE 9.07* 8.65* 8.09* 7.70* GLUCOSE 191* 182* 190* 220* Lab 07/22/19 0616 07/21/19 1047 07/21/1913207/20/19 0628 07/19/19 2357 CALCIUM 7.3* 7.6* 7.4* 7.4* 7.3* MAGNESIUM 1.9 -- -- -- 1.7 PHOSPHORUS 5.9* -- 5.6* 4.1 4.9* Lab 07/19/19 2357 INR 1.1 PROTHROMBIN TIME 15.0 Lab 07/22/19 0616 07/21/19 01307/20/1928 07/19/19 2357 07/18/19 0940 ALT 10 -- 8 6* 18 AST 11* -- 15 12* 20 ALK PHOS 81 -- 87 98 77 BILIRUBIN TOTAL 0.3 -- 0.3 0.3 0.28 BILIRUBIN DIRECT 0.04 -- 0.07 0.05 -- ALBUMIN 3.0* 3.0* 3.1* 3.2* 3.2* 3.3* 3.3* 4.2 Lab 07/20/19 0606 COLOR, URINE Yellow CLARITY Cloudy* SPECIFIC GRAVITY, URINE 1.017 PH UA 6.0 PROTEIN UA >=500* GLUCOSE UA 150* KETONES UA Negative BILIRUBIN UA Negative BLOOD UA Small* NITRITE UA Negative UROBILINOGEN UA <2.0 LEUKOCYTES UA Negative RBC UA 6* WBC UA 1 BACTERIA Few* MUCUS Present* Lab 07/20/19 0952 CK TOTAL 370* No results found for: NTPROBNP Lab Results Component Value Date TSH 2.02 12/20/2017 FREET4 1.03 10/20/2017 Lab 07/21/19 1959 07/21/19 1828 07/21/19 1331 07/21/19 1044 POC GLU MONITORING DEVICE 142* 135* 172* 184* Diagnostic Studies CT Abdomen and Pelvis WO IV contrast Final Result IMPRESSION: No acute findings in the abdomen/pelvis. Approved by Leeroy Jo MD on 07/21/2019 10:26 AM EST I have personally reviewed the images and I agree with this report. Report Verified by: Manolo Rosenthal MD at 07/21/2019 10:[address] Head WO contrast Final Result IMPRESSION: 1. No acute intracranial abnormality. Report Verified by: Eleanor Mtz at 07/21/2019 9:53 AM EST X-ray Portable Chest Final Result IMPRESSION: Negative portable chest. Approved by Felice Arnett MD on 07/20/2019 5:57 AM EST I have personally reviewed the images and I agree with this report. Report Verified by: William Mathew MD at 07/20/2019 6:[address] Neck With IV contrast (Results Pending) Nutrition: Diet Orders Diet NPO past midnight Except for: except sips with meds starting at 07/22 2359 Diet renal starting at 07/22 0739 Code Status: Full Code Signed: STAN LARIOS DO 07/22/2019, 4:25 PM Cosigned by Marcelino Fox MD at 07/23/2019 8:15 AM EST Associated attestation - Marcelino Fox MD - 07/23/2019 8:15 AM EST Had Grp C streptococcus bacteremia. Being treated with Rochephin and is afebrile. Chronic renal failujre has worsened an Cr up to 9. Being prepared for dialysis. Getting Cardiac ECHO to look for possible source of infection. I saw and examined the patient. I discussed with the resident or fellow and agree with DR. Larios's findings and plan as documented in the note. Marcelino Fox MD * Patricia Romero, PT - 07/22/2019 1:23 PM EST Physical Therapy Initial Assessment Name: Leoncio Rollins : 1975 Attending Physician: Marcelino Fox MD Admission Diagnosis: HYPERTENSION / S/P LIVER TXPLANT Date: 07/22/2019 Room: 8034/U80 Reviewed Pertinent hospital course: Yes Hospital Course PT/OT: 44 y.o. male with a h/o JC on CPAP, CKD, KIM Cirrhosis with EV s/p??liver transplant??09/2017 who presents as direct admit from OSH (admitted 07/19) due to concern for infection and CARMEN. Reported falls at OSh out of his chair 4-5 times. Cr 7 (baseline 4-5), Hbg 6.7, CXR- neg 07/20, CT A/P- no acute findings 07/21, HCT- no acute ICH 07/21 Activity Level: Activity as tolerated Assessment Assessment: Impaired Transfers, Impaired Gait, Impaired Balance, Impaired Strength, Impaired Activity Tolerance Prognosis: Fair Pt tolerated evaluation fairly well, limited by decreased balance and endurance. Pt performed sit <> stand and 50' gait training without AD, CGA. Pt would benefit from cont skilled PT to address deficits and inc safety and ind. Recommendation Recommendation: Home with intermittent assistance, Outpatient PT Equipment Recommended: None Outcome Measures AM-PAC 6 Clicks Basic Mobility Inpatient Short Form: PT 6 Clicks Score: 19 Mobility Recommendations for Staff Patient ability: Patient ambulates in hallway Assist needed: with 1 person assist Home Living/Prior Function Patient able to provide accurate information at this time: Yes Lives With: Family( and one son (20 yo)) Assistance available: 24 hour assistance Type of Home: House Home Entry: More than 1 step to enter;with railing Stairs to enter: 6 VIKRAM Home Layout: One level Bathroom Shower/Tub: Walk-in shower Bathroom Toilet: Standard Bathroom Equipment: Shower chair;Grab bars in shower Bathroom Accessibility: Accessible Home Equipment: None Prior Function Functional Mobility: Independent ( no assistive device) Receives Help From: None needed prior to admission Leisure Activities: Pt enjoys watching TV. Pain Pain Score: 10-Worst pain ever Pain Location: Chest Pain Descriptors: Aching Pain Intervention(s): Repositioned;Ambulation/increased activity;Emotional support Therapist reported pain to: RN monitoring Vision Vision/Perception Overall Vision/ Perception: Impaired Impairments: Basic Vision Current Vision: (farsighted) Cognition Overall Cognitive Status: Within Functional Limits Cognitive Assessment: Arousal/ Alertness;Orientation Level;Behavior;Following Commands;Safety Judgment;Insight Arousal/Alertness: Alert Orientation Level: Oriented X4 Behavior: Appropriate;Cooperative Following Commands: Follows all commands and directions without difficulty Safety Judgment: Good awareness of safety precautions Insight: Demonstrated intact insight into limitation and abilities to complete ADL's safely Once I get this fluid off me I will be alright. Neuromuscular Overall Sensation: Within Functional Limits Upper Extremity UE Assessment: Defer to OT evaluation for formal assessment Lower Extremity Lower Extremity LE Assessment: Strength WFL (at least 3+/5) as observed during functional activity Functional Mobility Transfers Sit to Stand: Contact guard assistance Gait Distance (in feet): 50' Level of assistance: Contact Guard assistance Assistive Device: None Gait Characteristics: Unsteady;L decreased step length;Loss of balance - able to self correct Balance Sitting - Static: Supervision Sitting-Dynamic: Supervision Standing-Static: Contact Guard Assistance Standing-Dynamic: Contact Guard Assistance Position after Therapy/Safety Handoff Position after treatment and safety handoff Position after therapy session: Chair Details: RN notified;Call light/ needs within reach Alarms: Chair Alarms Status: Unchanged from previous setting Goals Goals to be met by: 07/30/19 Patient will transition from supine to sit: Independent Patient will transition from sit to supine: Independent Patient will transfer from sit to stand: Independent Patient will transfer bed/chair: Independent Patient will ambulate: Independent, distance (in feet) Distance (in feet): 100' Patient will go up / down stairs: Will tolerate assessment Assisted Goal : =STG Patient Stated Goal #1: To increase balance Collaborated with: Patient Patient/Family Education Educated patient and patient's family on the role of physical therapy, goals, plan of care, importance of increased activity, discharge recommendations, home exercise program, transfer training, gaittraining and safety and need for supervision during OOB activity and fall prevention strategies, including need for supervision/ assistance with OOB activity and use of call light; patient verbalizedunderstanding. Plan Plan Treatment/Interventions: Patient/family training, Endurance training, LE strengthening/ROM, Equipment eval/education, Gait training, Continued evaluation, Therapeutic Activity, Therapeutic Exercise PT Frequency: minimum 2x/week The plan of care and recommendations assesses the patient's and/or caregiver's readiness, willingness, and ability to provide or support functional mobility and ADL tasks as needed upon discharge. Patricia Romero, PT, DPT Physical Therapist Pager #[phone] Dept [phone] Time Start Time: 1112 Stop Time: 1130 Time Calculation (min): 18 min Charges $PT Evaluation Low Complex 20 [...] kidney disease) stage 3, GFR 30-59 ml/min (CMS Dx) ??? Jdqji-dw-[id number] kidney injury (CMS Dx) ??? Metabolic acidosis ??? Group C streptococcal infection Past Medical History Past Medical History: Diagnosis [...] PROCEDURE 10/2016 ??? TIPS Revision 04/2017 * Enrike Mccracken MD - 07/22/2019 1:01 PM EST Transplant Nephrology Consult - Progress Note Patient: Leoncio Rollins [id number] Date of Admit: 07/19/2019. LOS: 3 days. Referring physician: Marcelino Fox MD Date: 07/22/2019 Reason for Consult Acute Kidney Injury (CRAMEN) History of Present Illness Leoncio Rollins is a 44 y.o. male with a past medical history of JC on CPAP, CKD, KIM Cirrhosis with EV s/p??liver transplant??09/2017 who presented on 07/19/2019 with Fevers. Nephrology is consulted for CARMEN. Leoncio Rollins reports that he feels well; except only symptoms being anorexia and some lower abdominal swelling. He is sent here from [place] with fevers. He is still fevering all day today; which started yesterday. He is anemic and getting pRBC. He had multiple falls recently and landed on hisleft abdomen. Of note, he was recently admitted 06/2019 for CARMEN with Cr 4.8 and was transferred to for furtherevaluation. Pt was admitted in 01/2019 for fluid overload and had 13gm of proteinuria. Kidney biopsywas offered but pt refused at that time. Cr was around mid 3s over this year. Pt denies exposure toNSAIDs. Contrast exposure: denies Nephrotoxic drug exposure: denies nsaids Hypotensive episodes: none known Interval History: - Blood cultures are reportedly positive at OSH. Blood cultures negative here till now. - Leoncio Rollins looks more alert now. - UOP 1.15 L Nutrition: Diet Orders Diet NPO past midnight Except for: except sips with meds starting at 07/22 3469 Diet renal starting at 07/22 0739 Access: Patient Lines/Drains/Airways Status Active Epidural Line / PICC Line / PIV Line / ART Line / Line / CVC Line Name: Placement date: Placement time: Site: Days: Peripheral IV 07/20/19 Right Antecubital 07/20/19 1503 Antecubital 1 NHSN Device Days (06/22/2019 to 07/21/2019) Central line: 0 Urinary catheter: 0 Code Status: Full Code Review of Systems (Focused) Significant as listed in HPI otherwise General: No weight loss; No fever; No chills ENT : No ear pain, No hearing loss Skin: No itching; No rashes Head/Eyes: No headache; No visual changes ENT: No hearing changes; No nasal congestion Respiratory: No dyspnea; No cough; No hemoptysis CV: No chest pain; No ankle edema GI: No nausea / vomiting; No constipation; No diarrhea; No melena; +abdominal fullness : No dysuria; No hematuria; No frequency. No urinary urgency; No hesitancy; No weak stream. Past Medical History Past Medical History: Diagnosis [...] ??? Diabetes Sister Social History Social History Tobacco Use ??? Smoking status: Never Smoker ??? Smokeless tobacco: Never Used Substance Use Topics ??? Alcohol use: No Medications Prior to Admission Medicationss: Medications Prior to Admission Medication Sig Dispense Refill Last Dose ??? aspirin 81 MG chewable tablet Chew 1 tablet (81 mg total) by mouth daily with breakfast. 30 tablet 5 07/19/2019 at Unknown time ??? blood sugar diagnostic Strp Use to test blood sugar up to 4 times a day. Diagnosis for use: E 9.65. For use with One Touch Verio meters. 150 strip 5 07/19/2019 at Unknown time ??? blood-glucose meter (ON[employer]CH VERIO SYSTEM) [facility] Use as instructed. 1 each 0 07/19/2019 at Unknown time ??? carBAMazepine (TEGRETOL) 200 mg tablet Take 200 mg by mouth at bedtime. 07/18/2019 at Unknown time ??? carvedilol (COREG) 25 MG tablet Take 2 tablets (50 mg total) by mouth 2 times a day with meals.120 tablet 5 07/19/2019 at Unknown time ??? cloNIDine HCl (CATAPRES) 0.1 MG tablet Take 1 tablet (0.1 mg total) by mouth if needed. (Patient taking differently: Take 0.1 mg by mouth 2 times a day. ) 60 tablet 0 07/19/2019 at Unknown time ??? doxazosin (CARDURA) 8 MG tablet 8 mg 2 times a day. 07/19/2019 at Unknown time ??? entecavir (BARACLUDE) 0.5 MG tablet Take 1 tablet (0.5 mg total) by mouth every 72 hours. 15 tablet 11 07/19/2019 at Unknown time ??? ergocalciferol (VITAMIN D2) 50,000 unit capsule Take 50,000 Units by mouth once a week. 07/19/2019 at Unknown time ??? famotidine (PEPCID) 20 MG tablet Take 20 mg by mouth daily. 07/18/2019 at Unknown time ??? fluticasone propionate (FLONASE) 50 mcg/actuation nasal spray use 2 spray(s) in each nostril daily 11 07/18/2019 at Unknown time ??? gabapentin (NEURONTIN) 100 MG capsule Take 4 capsules (400 mg total) by mouth daily. 180 capsule 0 07/18/2019 at Unknown time ??? insulin glulisine U-100 (APIDRA U-100 INSULIN) 100 unit/mL injection Inject 5 Units subcutaneously 3 times a day with meals. 10 mL 0 07/19/2019 at Unknown time ??? insulin NPH isoph U-100 human (HUMULIN N NPH INSULIN KWIKPEN) 100 unit/mL (3 mL) InPn Inject subcutaneously 20 units in the AM and 8 units in the PM. 15 mL 5 07/19/2019 at Unknown time ??? lancets (ONETOUCH DELICA LANCETS) 33 gauge Misc Use 1 strip as directed 4 times daily before meals and at bedtime. 150 each 5 07/19/2019 at Unknown time ??? mycophenolate (CELLCEPT) 250 mg capsule Take 3 capsules (750 mg total) by mouth 2 times a day. 180 capsule 5 07/19/2019 at Unknown time ??? NIFEdipine (PROCARDIA-XL) 90 MG (OSM) 24 hr tablet Take 90 mg by mouth 2 times a day. 07/19/2019 at Unknown time ??? ondansetron (ZOFRAN-ODT) 4 MG disintegrating tablet every 8 hours as needed. Past Week at Unknown time ??? pen needle, diabetic 32 gauge x 32 Ndle Use as directed to inject insulin 4 times daily. 150each 5 07/19/2019 at Unknown time ??? pen needle, diabetic 32 gauge x 532 Ndle For use with insulin pen. Use as instructed. 150 each 5 07/19/2019 at Unknown time ??? polyethylene glycol (MIRALAX) 17 gram packet Take 17 g by mouth 2 times a day as needed. 100 packet 0 Past Week at Unknown time ??? sodium bicarbonate 650 MG tablet Take 2 tablets (1,300 mg total) by mouth 2 times a day. 120 tablet 0 07/19/2019 at Unknown time ??? tacrolimus ER, 24 HR, (ENVARSUS XR) 1 mg Tb24 Take 2 tablets (2 mg total) by mouth daily. Per Hepatology recommendations 60 tablet 5 07/19/2019 at Unknown time ??? torsemide (DEMADEX) 20 MG tablet Take 1 tablet (20 mg total) by mouth daily. 30 tablet 5 07/19/2019 at Unknown time Scheduled Medications: ??? aspirin 81 mg Oral Daily with breakfast ??? carBAMazepine 200 mg Oral Nightly (2099) ??? carvedilol 50 mg Oral BID WC ??? cefTRIAXone (ROCEPHIN) IVPB 2 g Intravenous Q24H ??? cloNIDine HCl 0.1 mg Oral BID ??? [START ON 07/27/2019] [...] NPH 6 Units Subcutaneous Nightly (2099) ??? lidocaine 1 patch Transdermal Q24H ??? NIFEdipine 90 mg Oral BID ??? sodium bicarbonate 1,300 mg Oral BID ??? tacrolimus ER (24 HR) 3 mg Oral DAILY 0700 ??? terazosin 10 mg Oral Nightly (2099) Continuous Infusions: PRN medications: acetaminophen, benzocaine-menthol, dextrose 10% in water OR dextrose 10% in water, gabapentin, glucose, melatonin, polyethylene glycol, traMADol Allergies: Allergies Allergen Reactions ??? Codeine Sulfate Hyper ??? Codeine Other (See Comments) Becomes hyper Vital Signs Temp: [98.2 ??F (36.8 ??C)-99.3 ??F (37.4 ??C)] 98.2 ??F (36.8 ??C) Heart Rate: [65-87] 73 Resp: [16-18] 16 BP: (108-153)/(68-79) 108/73 Patient Vitals for the past 4 hrs: BP Temp Temp src Pulse Resp SpO2 07/22/19 1100 108/73 98.2 ??F (36.8 ??C) Oral 73 16 91 % 07/22/19 0922 132/68 98.5 ??F (36.9 ??C) Oral 65 16 90 % Wt Readings from Last 3 Encounters: 07/22/19 (!) 301 lb 14.4 oz (136.9 kg) 07/01/19 (!) 292 lb 14.4 oz (132.9 kg) 02/28/19 (!) 282 lb (127.9 kg) Admit Wt: Weight: (!) 302 lb 1.6 oz (137 kg) Todays Wt: Weight: (!) 301 lb 14.4 oz (136.9 kg) Estimated body mass index is 47.28 kg/m?? as calculated from the following: Height as of this encounter: 5' 7 (1.702 m). Weight as of this encounter: 301 lb 14.4 oz (136.9 kg). Date 07/21/19 0700 - 07/22/19 0659 07/22/19 0700 - 07/23/19 0659 Shift 5710-1414 3948-2842 1813-4777 24 Hour Total 1001-6212 0344-2682 2175-4589 24 Hour Total INTAKE P.O. 360 750 461 3478 120 120 P.O. 360 514 682 8300 120 120 Shift Total(mL/kg) 360(2.6) 840(6.1) 478(3.5) 1678(12.3) 120(0.9) 120(0.9) OUTPUT Urine(mL/kg/hr) 200(0.2) 400(0.4) 750(0.7) 1350(0.4) 100 100 Urine 200 417 457 5869 100 100 Urine Occurrence 1 x 1 x Emesis/NG output 0 0 Emesis 0 0 Emesis Occurrence 0 x 0 x 0 x 0 x Stool 0 0 Stool Occurrence 1 x 0 x 0 x 1 x Stool 0 0 Shift Total(mL/kg) 200(1.5) 400(2.9) 750(5.5) 1350(9.9) 100(0.7) 100(0.7) Weight (kg) 136.8 136.8 136.9 136.9 136.9 136.9 136.9 136.9 RESPIRATORY Ventilator Setting: No data found. Fi02 Requirement: No data found. Last ABG: Lab Results Component Value Date PCO2 34 (L) 10/09/2017 [id number] 97.6 10/09/2017 Physical Exam General: A&Ox3, NAD, laying comfortably in bed HEENT: normocephalic, atraumatic Neck: neck supple and symmetrical Cardiac: regular rate and rhythm, no M/R/G, normal S1 and S2 Pulm: aerating well, bilaterally CTA, no crackles, no wheezes, no rhonchi Abd: normal bowel sounds, soft, non-tender to palpation, +obese, +L scar Extremities: atraumatic, no cyanosis, no LE edema Skin: atraumatic, no rashes or lesions Neuro: moving all extremities without difficulty, grossly intact Laboratory Data Recent Labs 07/21/19 0133 07/21/19 1047 07/22/19 0616 WBC 5.7 5.9 5.1 HGB 7.3* 7.5* 7.9* HCT 22.6* 23.5* 24.3* MCV 84.1 83.6 82.9 PLT 131* 131* 133* Recent Labs 07/19/19 2357 07/20/19 0628 07/21/19 0133 07/21/19 1047 07/22/19 0616 NA 134 132* 135 134 134 K 5.4* 4.9 4.9 5.2 4.6 CL 101 101 101 100 99 CO2 19* 19* 21 21 21 BUN 58* 57* 61* 63* 67* CREATININE 7.45* 7.70* 8.09* 8.65* 9.07* GLUCOSE 270* 220* 190* 182* 191* CALCIUM 7.3* 7.4* 7.4* 7.6* 7.3* MG 1.7 -- -- -- 1.9 PHOS 4.9* 4.1 5.6* -- 5.9* ANIONGAP 14 12 13 13 14 Recent Labs 07/19/192356 INR 1.1 PROTIME 15.0 FSBS Range: Recent Labs 07/19/19 2345 07/20/19 0833 07/20/19 1214 07/20/19 1703 07/20/19 2121 07/21/19 1044 07/21/19 1331 07/21/19 1828 07/21/19 1959 POCGMD 272* 195* 150* 135* 151* 184* 172* 135* 142* Recent Labs 07/19/19 2357 07/20/19 0628 07/22/19 0616 ALT 6* 8 10 AST 12* 15 11* ALKPHOS 98 87 81 BILITOT 0.3 0.3 0.3 Cardiac Labs: Recent Labs 07/20/19 0952 CKTOTAL 370* No results for input(s): CHOLTOT, TRIG, HDL, CHOLHDL, LDL in the last 72 hours. Invalid input(s): VLDCHOL Lab Results Component Value Date HGBA1C 6.8 (A) 07/18/2019 HGBA1C 7.2 (A) 05/15/2019 HGBA1C 7.4 (H) 12/13/2018 Nephro Labs: Recent Labs 07/20/19 0606 COLORU Yellow CLARITYU Cloudy* PROTEINUA >=500* PHUR 6.0 LABSPEC 1.017 GLUCOSEU 150* BLOODU Small* LEUKOCYTESUR Negative NITRITE Negative BILIRUBINUR Negative UROBILINOGEN <2.0 RBCUA 6* WBCUA 1 BACTERIA Few* Recent Labs 07/20/19 1339 NAUR 21 KUR 56.0 CLUR 22 No results found for: MICROALBUR, [id number] Lab Results Component Value Date PTH 164.0 (H) 01/14/2019 CALCIUM 7.3 (L) 07/22/2019 PHOS 5.9 (H) 07/22/2019 Lab Results Component Value Date [id number] 15.8 (L) 01/14/2019 Anemia Labs: Lab Results Component Value Date IRON 24 (L) 07/21/2019 TIBC 202 (L) 07/21/2019 FERRITIN 433.9 (H) 07/21/2019 Lab Results Component Value Date [id number] 499 07/22/2019 Sepsis Marker Labs: Recent Labs 07/20/19 0021 LACTATE 0.7 Lab Results Component Value Date FIBRINOGEN 454 (H) 07/20/2019 No results for input(s): TEGANGLE, TEGKTIME, [id number], TEGMAXAMPL, TEGRTIME, CBMZ in the last 72 hours. No results for input(s): ESR, CRP in the last 72 hours. No results found for: ESR, CRP Infectious Labs Urine cx: Lab Results Component [...] found for: HIV1X2 No results found for: [id number] No results found for: VDRLCSF Lab Results Component Value Date HEPAIGM Nonreactive 08/21/2017 HEPBCAB Nonreactive 12/13/2018 No results found for: [id number] No results found for: [id number] Diagnostic Studies Renal Ultrasound: Results for orders placed during the hospital encounter of 06/27/19 US Retroperitoneal complete Narrative EXAM: US RETROPERITONEAL COMPLETE INDICATION: CARMEN on CKD, COMPARISON: Abdominal ultrasound dated 01/12/2019 TECHNIQUE: Grayscale and color Doppler imaging acquisition was performed for evaluation of the kidneys and urinary bladder. FINDINGS: Right Kidney: 9.9 x 5.3 x 5.1 cm. There is no hydronephrosis. Normal echogenicity. No masses or calculi are appreciated. Left Kidney: 10.4 x 5.6 x 5.7 cm. There is no hydronephrosis. Normal echogenicity. No masses or calculi are appreciated. Bladder: Evaluation of the bladder is limited, but is grossly unremarkable. Other: None Impression IMPRESSION: Normal renal ultrasound. Approved by Jimmy Velasquez MD on 06/28/2019 3:29 PM EST I have personally reviewed the images and I agree with this report. Report Verified by: Lion Mike MD at 06/28/2019 4:36 PM EST No results found for this or any previous visit. Radiology last 48 hours: X-ray Portable Chest Result Date: 07/20/2019 EXAM: XR PORTABLE CHEST INDICATION: Dyspnea, unspecified TECHNIQUE: Portable AP view of the chest. COMPARISON: 01/12/2019 FINDINGS: Exam was performed on 07/20/2019 4:47 AM EST. Medical Devices: None. Heart and Mediastinum: Cardiomediastinal silhouette is within normal limits. Lungs and Pleura: Lungs a re clear with no focal consolidations or pleural effusions. No evidence for pneumothorax. Bones: Noacute osseous abnormalities. IMPRESSION: Negative portable chest. Approved by Felice Arnett MD on 07/20/2019 5:57 AM EST I have personally reviewed the images and I agree with this report. Report Verified by: William Mathew MD at 07/20/2019 6:13 AM EST Medical Decision Making: Leoncio Rollins is a 44 y.o. male with Kusas-gw-vcxysgb kidney injury (CMS Dx). Medical problems being addressed in this encounter include the following: Principal Problem: Pgvkw-tp-ebgpsci kidney injury (CMS Dx) Active Problems: Group C streptococcal infection In addition to the above an extensive amount of complex data in the patients lab and chart were reviewed. Morbidity / complication risk is felt to be: moderate / high. Assessment and Plan: Leoncio Rollins is a 44 y.o. male with a past medical history of JC on CPAP, CKD, KIM Cirrhosis with EV s/p??liver transplant??09/2017 who presented on 07/19/2019 with Fevers. Nephrology is consulted for CARMEN. #) Oliguric Acute Kidney Injury (CARMEN) on CKD stage 4-5: - Baseline creatinine: 4.4-4.9 ; admission creatinine 7.7. KDIGO Stage: 1-2. - Baseline CKD stage 4-5. Etiology unclear. He declined renal biopsy previously. Known to have nephrotic range proteinuria: serologies negative except TERESA 1:160 and faint monoclonal band on SPEP on 02/28/19. Etiology of CKD and proteinuria unclear - diabetic nephropathy is possible He has a prior poor renal reserve. Now came in with infection - blood cultures + from OSH. Likely this tipped him over. #) Electrolytes: - No acute concerns. Lab Results Component Value Date CREATININE 9.07 (H) 07/22/2019 BUN 67 (H) 07/22/2019 NA 134 07/22/2019 K 4.6 07/22/2019 CL 99 07/22/2019 CO2 21 07/22/2019 Lab Results Component Value Date PTH 164.0 (H) 01/14/2019 CALCIUM 7.3 (L) 07/22/2019 PHOS 5.9 (H) 07/22/2019 #) Acid/Base: NAGMA? - CO2 21 - Home med: sodium bicarb tabs 1.3g BID = continue. - Labs: Lab Results Component Value Date PHART 7.41 10/09/2017 PCO2 34 (L) 10/09/2017 PO2ART 123 (H) 10/09/2017 [id number] 21 (L) 10/09/2017 BEART -2.9 (L) 10/09/2017 [id number] 97.6 10/09/2017 #) Volume Status: - Euvolemic. Intake/Output Summary (Last 24 hours) at 07/22/2019 1252 Last data filed at 07/22/2019 0835 Gross per 24 hour Intake 1438 ml Output 1250 ml Net 188 ml #) Blood Pressures: Hypertension: - Home meds: coreg 50mg BID, clonidine 0.1mg BID, nifedipine 90mg BID (rather high dose), [id number] nightly, Torsemide held. - Per primary team #) Anemia in Chronic Kidney Disease: - Hgb 12 from a few days prior to admission, seems inaccurate. - Hgb 7.9 on admission, s/p pRBC. - Iron studies / Ferritin: JOSE ALFREDO from 05/2019 - B12 and Folate #) Chronic Kidney Disease-Bone Mineral Disorder: Secondary Hyperparathyroidism: - Home: Ergo 50,000 u weekly. Recommendations: Plan TDC insertion on 23 Jul 2019. Will initiate HD via TDC. Will need a chronic spot as an outpt. Low iron store. Will plan IV venofer 100 mg IV q each HD for total of 10 doses. Will start on Aranesp 40 mcg q weekly with HD. IS per primary team. Enrike Mccracken MD Div. of Nephrology and Hypertension. [facility]. Cell: [phone]. E-mail: [email or web address]. Cosigned by Li Rossi MD at 07/22/2019 1:09 PM EST Associated attestation - Li Rossi MD - 07/22/2019 1:09 PM EST I have seen and examined the patient, reviewed the notes, assessments, and/or procedures performed by the fellow/resident/DANCE COSTUME DESIGNER and I concur with her/his documentation of the patient. Review of labs, pathology reports, radiograph reports, and medical records confirm the findings noted above. I have edited the note where appropriate. I have discussed my findings and recommendations with the patient/family when appropriate and answered their questions. CARMEN on CKD stage 5- now approaching end-stage. Will initiate dialysis. TDC followed by IHD initiation session with slow blood flows. IV iron and aranesp as below for anemia of kidney disease. Monitor hyperphosphatemia. Li Rossi MD, MS Division of Nephrology [facility] [address] [facility] [place], [id number] * Maru Carlson - 07/22/2019 11:38 AM EST Gastroenterology Inpatient Progress Note Mr. Rollins is a 44 year old man with a history of KIM cirrhosis s/p liver transplant in 2018 and CKD who presents with fevers and acute on chronic kidney injury. S: Patient did well overnight. He is not producing much urine. He is eating and drinking well and had no problems overnight. He states that he has had no acute pains overnight. Labs: Lab Results Component Value Date CREATININE 9.07 (H) 07/22/2019 BUN 67 (H) 07/22/2019 NA 134 07/22/2019 K 4.6 07/22/2019 CL 99 07/22/2019 CO2 21 07/22/2019 Lab Results Component Value Date ALKPHOS 81 07/22/2019 ALT 10 07/22/2019 AST 11 (L) 07/22/2019 BILITOT 0.3 07/22/2019 ALBUMIN 3.0 (L) 07/22/2019 ALBUMIN 3.0 (L) 07/22/2019 BILIDIRECT 0.04 07/22/2019 PROT 5.7 (L) 07/22/2019 Imaging: CT abdomen/pelvis: normal, no bleed CT head: normal, no bleed O: Vitals: 07/22/19921 BP: 132/68 Pulse: 65 Resp: 16 Temp: 98.5 ??F (36.9 ??C) SpO2: 90% General: patient has an obese body habitus and appears well, no acute distress Heart: regular rate and rhythm, no gallops, rubs, or murmur Lungs: CTAB, no wheezes, rales, or rhonchi Abdomen: Hepatomegaly present, non-distended, non-tender, normal bowel sounds Extremities: no extremity edema, sensation intact Neuro: a&ox4 Psych: mood appropriate A: Mr. Rollins is a 44 year old man with a history of KIM cirrhosis s/p liver transplant in 2018 and CKD who presents with fevers and acute on chronic kidney injury. Patient is symptomatically doing well and is no longer febrile. His kidney labs are trending up andthe renal transplant team is recommending dialysis. His acute infection seems to be improving and is susceptible to cetriaxone per culture at the outside hospital. Will continue ceftriaxone daily andwill switch to PO closer to discharge. Etiology of kidney injury is non-obstructive, but otherwise unknown. The renal team recommends a kidney biopsy, but the patient has been refusing. Should continue to discuss kidney biopsy because he will need it before he can be considered for transplant. Bacteremia -continue ceftriaxone IV daily -get echo today to rule out endocarditis -can switch to PO antibiotics for discharge Acute on chronic renal failure -getting dialysis catheter late today or tomorrow -continue trending renal labs -will likely need dialysis tomorrow Positive CMV IgM serology -viral load pending Anemia -stable after transfusion of 2 units of blood on 07/20 -likely anemia of chronic disease according to Fe studies Diabetes -stable during hospital stay HTN -stable during hospital stay Dispo: Continue to monitor for relapse of fevers. Need to establish dialysis plan before discharge. Maru Carlson MS3 Cosigned by Marcelino Fox MD at 07/23/2019 8:16 AM EST Associated attestation - Marcelino Fox MD - 07/23/2019 8:16 AM EST See my note earlier today in resident's progress note * Radha Nagel OT - 07/22/2019 10:26 AM EST Occupational Therapy Initial Assessment and Discharge Name: Leoncio Rollins : 1975 Attending Physician: Marcelino Fox MD Admission Diagnosis: HYPERTENSION / S/P LIVER TXPLANT Date: 07/22/2019 Room: 34/80 Reviewed Pertinent hospital course: Yes Hospital Course PT/OT: 44 y.o. male with a h/o JC on CPAP, CKD, KIM Cirrhosis with EV s/p??liver transplant??09/2017 who presents as direct admit from OSH (admitted 07/19) due to concern for infection and CARMEN. Reported falls at OSh out of his chair 4-5 times. Cr 7 (baseline 4-5), Hbg 6.7, CXR- neg 07/20, CT A/P- no acute findings 07/21, HCT- no acute ICH 07/21 Activity Level: Activity as tolerated Recommendation Recommendation: Home with 24 hour supervision/assistance, No skilled OT(inital 06/03) Equipment Recommendations: None Assessment and Plan Assessment: patient at baseline function Comments: d/c Patient tolerated OT evaluation well today and completed self-care transfers, functional mobility and ADLs w/ supervision level. Pt is functioning at baseline level and demonstrates no further acute OT needs at this time. Patient denies any acute concerns or needs for OT services as patient at baseline receives intermittent assistance w/ ADLs at home. Pt will be discharged from acute OT services.Pt is safe to return home independently w/ initial 06/03 supervision. Anticipate no further OT needsat discharge. If changes occur, please re-consult OT. Thank you. Outcome Measures AM-PAC 6 Clicks Daily Activity Inpatient Short Form: OT 6 Clicks Score: 23 Home Living/Prior Function Patient able to provide accurate information at this time: Yes Lives With: Family( and one son (20 yo)) Assistance available: 24 hour assistance Type of Home: House Home Entry: More than 1 step to enter, with railing Stairs to enter: 6 VIKRAM Home Layout: One level Bathroom Shower/Tub: Walk-in shower Bathroom Toilet: Standard Bathroom Equipment: Shower chair, Grab bars in shower Bathroom Accessibility: Accessible Home Equipment: None Prior Function Functional Mobility: Independent ( no assistive device) Receives Help From: None needed prior to admission ADL Assistance: Intermittent assistance needed Needs asistance with: Dressing, Bathing IADL Assistance: Needs assistance Needs asistance with: Meal preparation, Laundry, Cleaning Leisure: Hobbies-yes (Comment) Leisure Activities: Pt enjoys watching TV. Pain Pain Score: 10-Worst pain ever Pain Location: Chest Pain Descriptors: Aching Pain Intervention(s): Repositioned;Ambulation/increased activity;Emotional support Therapist reported pain to: RN monitoring Cognition Overall Cognitive Status: Within Functional Limits Cognitive Assessment: Arousal/ Alertness;Orientation Level;Behavior;Following Commands;Safety Judgment;Insight Arousal/Alertness: Alert Orientation Level: Oriented X4 Behavior: Appropriate;Cooperative Following Commands: Follows all commands and directions without difficulty Safety Judgment: Good awareness of safety precautions Insight: Demonstrated intact insight into limitation and abilities to complete ADL's safely Vision Overall Vision/ Perception: Impaired Impairments: Basic Vision Current Vision: (farsighted) Right Upper Extremity Right UE ROM: Grossly [...] activites Neuromuscular Overall Sensation: Within Functional Limits Functional Mobility Bed Mobility Supine to Sit: Supervision Transfers Sit to Stand: Supervision Functional Mobility: Supervision(w/ no AD to complete household distances in room and to the bathroom, no LOB) Balance Sitting - Static: Independent Sitting-Dynamic: Independent Standing-Static: Supervision Standing-Dynamic: Supervision ADL Grooming: Independent Grooming Deficit: Teeth care Location Assessed Grooming: Standing at sink Grooming Deficit Additional Comments: to brush teeth Lower Body Dressing: Independent Location Assessed LE Dressing: Seated edge of bed Lower Body Dressing Deficit Additional Comments: to don B socks Toileting: Independent Location Assessed Toileting: (seated in chair) Toileting Deficit Additional Comments: use of urinal Position after Treatment/Safety Handoff Position after therapy session: Chair Details: RN notified;Call light/ needs within reach Alarms: Chair Alarms Status: Unchanged from previous setting Plan Plan OT Frequency: One-time visit--discharge from OT The plan of care and recommendations assesses the patient's and/or caregiver's readiness, willingness, and ability to provide or support functional mobility and ADL tasks as needed upon discharge. Goals Patient stated goal: to go home Collaborated with: Patient Patient/Family Education Educated patient on the role of occupational therapy, OT goals, OT plan of care, discharge recommendation, ADL training, functional mobility training and the importance of safety and fall prevention strategies including use of call light. patient verbalized understanding. OT Time Start Time: 909 Stop Time: 935 Time Calculation (min): 26 min OT Charges $OT Evaluation Low Complex 30 Min: 1 Procedure Radha Nagel OTR/L [facility] Rehab Department Pager: Problem List Patient Active Problem List Diagnosis [...] kidney disease) stage 3, GFR 30-59 ml/min (CMS Dx) ??? Qkzdl-jh-cskgubw kidney injury (CMS Dx) ??? Metabolic acidosis ??? Group C streptococcal infection Past Medical History Past Medical History: Diagnosis [...] PROCEDURE 10/2016 ??? TIPS Revision 04/2017 * Sree Castillo Rai, MD - 07/22/2019 9:15 AM EST Infectious Disease Progress Note Patient Name: Leoncio Rollins Admit Date: 07/19/2019 Hospital Day: 4 AUTHOR: SREE CASTILLO RAI, MD 07/22/2019 9:10 AM Subjective: Afebrile overnight. ROS: A 12 point RoS was performed and was negative for any new complaints Physical Exam: BP 153/79 (BP Location: Right arm, Patient Position: Lying) Pulse 87 Temp 98.9 ??F (37.2 ??C) (Oral) Resp 16 Ht 5' 7 (1.702 m) Wt (!) 301 lb 14.4 oz (136.9 kg) SpO2 93% BMI 47.28 kg/m?? General appearance: alert, appears stated age, cooperative and morbidly obese Eyes: PERRL, no subconjunctival hems Throat: large tongue, unable to see pharynx Neck: no adenopathy, supple, symmetrical, trachea midline and thyroid not enlarged, symmetric, no tenderness/mass/nodules Lungs: clear to auscultation bilaterally and no respiratory distress Heart: regular rate and rhythm, S1, S2 normal, no murmur, click, rub or gallop Abdomen: soft, non-tender; bowel sounds normal; no masses, no organomegaly and no bruises, mild L flank tenderness, well-healed OLT scars Extremities: no edema, redness or tenderness in the calves or thighs Skin: Skin color, texture, turgor normal. No rashes or lesions Allergies: Allergies Allergen Reactions ??? Codeine Sulfate Hyper ??? Codeine Other (See Comments) Becomes hyper Current Meds: Current Facility-Administered Medications Medication ??? acetaminophen (TYLENOL) tablet 650 mg ??? aspirin chewable tablet 81 mg ??? benzocaine-menthol (CHLORASEPTIC) 6-10 mg lozenge 1 lozenge ??? carBAMazepine (TEGRETOL) tablet 200 mg ??? carvedilol (COREG) tablet 50 mg ??? cefTRIAXone (ROCEPHIN) 2 g in sodium chloride 0.9% 100 mL ADDaptor IVPB ??? cloNIDine HCl (CATAPRES) tablet 0.1 mg ??? dextrose 10 % (D10W) in water infusion Or ??? dextrose 10 % (D10W) in water infusion ??? [START ON 07/23/2019] entecavir (BARACLUDE) 0.05 mg/mL solution 0.15 mg ??? ergocalciferol capsule 50,000 Units ??? famotidine (PEPCID) tablet 20 mg ??? gabapentin (NEURONTIN) capsule 400 mg ??? glucose chewable tablet 12 g ??? insulin lispro (humaLOG) injection 0-4 Units ??? insulin lispro (humaLOG) injection 0-5 Units ??? insulin lispro (humaLOG) injection 3 Units ??? insulin NPH (HumuLIN N) injection 18 Units ??? insulin NPH (HumuLIN N) injection 6 Units ??? lidocaine (LIDODERM) 5 % 1 patch ??? melatonin 3 mg ??? NIFEdipine (PROCARDIA-XL) 24 hr tablet 90 mg ??? polyethylene glycol (MIRALAX) packet 17 g ??? sodium bicarbonate tablet 1,300 mg ??? tacrolimus ER (24 HR) (ENVARSUS XR) tablet 3 mg ??? terazosin (HYTRIN) capsule 10 mg ??? traMADol (ULTRAM) tablet 50 mg Labs: Recent Labs 07/21/19 0133 07/21/19 1047 07/22/19 0616 WBC 5.7 5.9 5.1 HGB 7.3* 7.5* 7.9* HCT 22.6* 23.5* 24.3* PLT 131* 131* 133* Recent Labs 07/21/19 0133 07/21/19 1047 07/22/19 0616 NA 135 134 134 K 4.9 5.2 4.6 CL 101 100 99 CO2 21 21 21 BUN 61* 63* 67* CREATININE 8.09* 8.65* 9.07* GLUCOSE 190* 182* 191* Lab Results Component Value Date ALKPHOS 81 07/22/2019 ALT 10 07/22/2019 AST 11 (L) 07/22/2019 BILITOT 0.3 07/22/2019 ALBUMIN 3.0 (L) 07/22/2019 ALBUMIN 3.0 (L) 07/22/2019 BILIDIRECT 0.04 07/22/2019 PROT 5.7 (L) 07/22/2019 Lab Results Component Value Date CKTOTAL 370 (H) 07/20/2019 ESR: Not documented C-reactive protein Other: MICROIOLOGY Urine cx: Lab Results Component Value Date [...] ISO2 Testing Performed at Laboratory (A) 10/25/2017 Assessment/Recommendations: Group C Strep - Dx most likely Group C strep pharyngitis in IC host - Blood cultures here negative to date - Reasonable to continue Ceftriaxone for now - Duration of Rx pending, need to avoid PICC in arms due to near-ESRD status - Group C strep can cause endocarditis, await TTE - Group C strep infections have been associated with underlying malignancy - Will follow with you Staffed with Dr Mcknight. SREE CASTILLO RAI, MD 07/22/2019 9:10 AM Cosigned by Ovi Chávez MD at 07/22/2019 4:54 PM EST Associated attestation - Ovi Zaldivar MD - 07/22/2019 4:54 PM EST Images from the original note were not included. Group C streptococcus bacteremia / pharyngeal ulcer - Likely oral alfonso source for bacteremia - Recommend CT maxillofacial and neck - Recommend to continue ceftriaxone IV for now - If echocardiogram TTE does not show signs of endocarditis will consider amoxicillin PO for him tocomplete antibiotic course. Pharyngeal Ulcer - Recommend HSV swab PCR . If PCR is negative will need biopsy to rule out other etiologies including CMV and fungal infections. 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 Usually see invasive diseases when >2000 copies. Still a possibility but think we need to rule out HSV first if not will proceed with palate biopsy to rule out this infection. Dr. Johnson will assume consult service tomorrow Ovi Mcknight M.D. Infectious Diseases Pager: [phone] * Lashell Fountain, RICARDO - 07/22/2019 12:24 AM EST Patient requested Bipap setup and placed in standby. Assessed patient x2 for readiness, pt declinedbipap both encounters. Patient placed on 2L NC for sleep. * Darrian PaulinoD - 07/21/2019 12:34 PM EST Images from the original note were not included. [facility] Clinical Pharmacy Service: Vancomycin Monitoring Consult Vancomycin discontinued per team. Pharmacy will sign off vancomycin consult. Thank you for the opportunity to participate in the care of Leoncio Rollins. Pharmacy will continue to follow. Carlos Eduardo Mcknight, PharmD, OP Hem/Onc/BMT Consolidation Accountant [place] [id number] office: [phone] fax: [phone] Pager: [phone] 07/21/2019 * Miguel Jung MD - 07/21/2019 9:55 AM EST Nephrology Consult - Progress Note Patient: Leoncio Rollins [id number] Date of Admit: 07/19/2019. LOS: 2 days. Referring physician: Marcelino Fox MD Date: 07/21/2019 Reason for Consult Acute Kidney Injury (CARMEN) History of Present Illness Leoncio Rollins is a 44 y.o. male with a past medical history of JC on CPAP, CKD, KIM Cirrhosis with EV s/p??liver transplant??09/2017 who presented on 07/19/2019 with Fevers. Nephrology is consulted for CARMEN. Leoncio Rollins reports that he feels well; except only symptoms being anorexia and some lower abdominal swelling. He is sent here from [place] with fevers. He is still fevering all day today; which started yesterday. He is anemic and getting pRBC. He had multiple falls recently and landed on hisleft abdomen. Of note, he was recently admitted 06/2019 for CARMEN with Cr 4.8 and was transferred to for furtherevaluation. Pt was admitted in 01/2019 for fluid overload and had 13gm of proteinuria. Kidney biopsywas offered but pt refused at that time. Cr was around mid 3s over this year. Pt denies exposure toNSAIDs. Contrast exposure: denies Nephrotoxic drug exposure: denies nsaids Hypotensive episodes: none known Interval History: - Blood cultures are reportedly positive at OSH. - Leoncio Rollins was more confused overnight. - CT looks [perhaps due to prior recent falls at home] like extensive fat stranding along the left lateral abdominal wall. Mild anasarca. - UOP only ~450 mL. Nutrition: Diet Orders Diet renal starting at 07/19 5134 Access: Patient Lines/Drains/Airways Status Active Epidural Line / PICC Line / PIV Line / ART Line / Line / CVC Line Name: Placement date: Placement time: Site: Days: Peripheral IV 07/20/19 Right Antecubital 07/20/19 1503 [facility] (06/21/2019 to 07/20/2019) Central line: 0 Urinary catheter: 0 Code Status: Full Code Review of Systems (Focused) Significant as listed in HPI otherwise General: No weight loss; No fever; No chills ENT : No ear pain, No hearing loss Skin: No itching; No rashes Head/Eyes: No headache; No visual changes ENT: No hearing changes; No nasal congestion Respiratory: No dyspnea; No cough; No hemoptysis CV: No chest pain; No ankle edema GI: No nausea / vomiting; No constipation; No diarrhea; No melena; +abdominal fullness : No dysuria; No hematuria; No frequency. No urinary urgency; No hesitancy; No weak stream. Past Medical History Past Medical History: Diagnosis [...] ??? Diabetes Sister Social History Social History Tobacco Use ??? Smoking status: Never Smoker ??? Smokeless tobacco: Never Used Substance Use Topics ??? Alcohol use: No Medications Prior to Admission Medicationss: Medications Prior to Admission Medication Sig Dispense Refill Last Dose ??? aspirin 81 MG chewable tablet Chew 1 tablet (81 mg total) by mouth daily with breakfast. 30 tablet 5 07/19/2019 at Unknown time ??? blood sugar diagnostic Strp Use to test blood sugar up to 4 times a day. Diagnosis for use: E 9.65. For use with One Touch Verio meters. 150 strip 5 07/19/2019 at Unknown time ??? blood-glucose meter (ONETOUCH VERIO SYSTEM) Misc Use as instructed. 1 each 0 07/19/2019 at Unknown time ??? carBAMazepine (TEGRETOL) 200 mg tablet Take 200 mg by mouth at bedtime. 07/18/2019 at Unknown time ??? carvedilol (COREG) 25 MG tablet Take 2 tablets (50 mg total) by mouth 2 times a day with meals.120 tablet 5 07/19/2019 at Unknown time ??? cloNIDine HCl (CATAPRES) 0.1 MG tablet Take 1 tablet (0.1 mg total) by mouth if needed. (Patient taking differently: Take 0.1 mg by mouth 2 times a day. ) 60 tablet 0 07/19/2019 at Unknown time ??? doxazosin (CARDURA) 8 MG tablet 8 mg 2 times a day. 07/19/2019 at Unknown time ??? entecavir (BARACLUDE) 0.5 MG tablet Take 1 tablet (0.5 mg total) by mouth every 72 hours. 15 tablet 11 07/19/2019 at Unknown time ??? ergocalciferol (VITAMIN D2) 50,000 unit capsule Take 50,000 Units by mouth once a week. 07/19/2019 at Unknown time ??? famotidine (PEPCID) 20 MG tablet Take 20 mg by mouth daily. 07/18/2019 at Unknown time ??? fluticasone propionate (FLONASE) 50 mcg/actuation nasal spray use 2 spray(s) in each nostril daily 11 07/18/2019 at Unknown time ??? gabapentin (NEURONTIN) 100 MG capsule Take 4 capsules (400 mg total) by mouth daily. 180 capsule 0 07/18/2019 at Unknown time ??? insulin glulisine U-100 (APIDRA U-100 INSULIN) 100 unit/mL injection Inject 5 Units subcutaneously 3 times a day with meals. 10 mL 0 07/19/2019 at Unknown time ??? insulin NPH isoph U-100 human (HUMULIN N NPH INSULIN KWIKPEN) 100 unit/mL (3 mL) InPn Inject subcutaneously 20 units in the AM and 8 units in the PM. 15 mL 5 07/19/2019 at Unknown time ??? lancets (ONETOUCH DELICA LANCETS) 33 gauge Misc Use 1 strip as directed 4 times daily before meals and at bedtime. 150 each 5 07/19/2019 at Unknown time ??? mycophenolate (CELLCEPT) 250 mg capsule Take 3 capsules (750 mg total) by mouth 2 times a day. 180 capsule 5 07/19/2019 at Unknown time ??? NIFEdipine (PROCARDIA-XL) 90 MG (OSM) 24 hr tablet Take 90 mg by mouth 2 times a day. 07/19/2019 at Unknown time ??? ondansetron (ZOFRAN-ODT) 4 MG disintegrating tablet every 8 hours as needed. Past Week at Unknown time ??? pen needle, diabetic 32 gauge x Ndle Use as directed to inject insulin 4 times daily. 150each 5 07/19/2019 at Unknown time ??? pen needle, diabetic 32 gauge x Ndle For use with insulin pen. Use as instructed. 150 each 5 07/19/2019 at Unknown time ??? polyethylene glycol (MIRALAX) 17 gram packet Take 17 g by mouth 2 times a day as needed. 100 packet 0 Past Week at Unknown time ??? sodium bicarbonate 650 MG tablet Take 2 tablets (1,300 mg total) by mouth 2 times a day. 120 tablet 0 07/19/2019 at Unknown time ??? tacrolimus ER, 24 HR, (ENVARSUS XR) 1 mg Tb24 Take 2 tablets (2 mg total) by mouth daily. Per Hepatology recommendations 60 tablet 5 07/19/2019 at Unknown time ??? torsemide (DEMADEX) 20 MG tablet Take 1 tablet (20 mg total) by mouth daily. 30 tablet 5 07/19/2019 at Unknown time Scheduled Medications: ??? aspirin 81 mg Oral Daily with breakfast ??? carBAMazepine 200 mg Oral Nightly (2099) ??? carvedilol 50 mg Oral BID WC ??? cefTRIAXone (ROCEPHIN) IVPB 2 g Intravenous Q12H ??? cloNIDine HCl 0.1 mg Oral BID ??? ergocalciferol 50,000 Units Oral Weekly ??? famotidine 20 mg Oral Daily 0900 ??? insulin lispro 0-4 Units Subcutaneous Nightly (2099) ??? insulin lispro 0-5 Units Subcutaneous TID AC ??? insulin lispro 3 Units Subcutaneous TID AC ??? insulin NPH 18 Units Subcutaneous Daily 0900 ??? insulin NPH 6 Units Subcutaneous Nightly (2099) ??? lidocaine 1 patch Transdermal Q24H ??? NIFEdipine 90 mg Oral BID ??? sodium bicarbonate 1,300 mg Oral BID ??? terazosin 10 mg Oral Nightly (2099) Continuous Infusions: ??? lactated Ringers 75 mL/hr (07/21/19 0044) PRN medications: acetaminophen, dextrose 10% in water OR dextrose 10% in water, gabapentin, glucose, melatonin, polyethylene glycol, traMADol, vancomycin intermittent/pulse dosing PLACEHOLDER ORDER Allergies: Allergies Allergen Reactions ??? Codeine Sulfate Hyper ??? Codeine Other (See Comments) Becomes hyper Vital Signs Temp: [98 ??F (36.7 ??C)-102.5 ??F (39.2 ??C)] 98 ??F (36.7 ??C) Heart Rate: [80-90] 88 Resp: [16-20] 18 BP: (119-154)/(65-86) 154/85 Patient Vitals for the past 4 hrs: BP Temp Temp src Pulse Resp SpO2 07/21/19 0700 154/85 98 ??F (36.7 ??C) Oral 88 18 95 % Wt Readings from Last 3 Encounters: 07/21/19 (!) 301 lb 11.2 oz (136.9 kg) 07/01/19 (!) 292 lb 14.4 oz (132.9 kg) 02/28/19 (!) 282 lb (127.9 kg) Admit Wt: Weight: (!) 302 lb 1.6 oz (137 kg) Todays Wt: Weight: (!) 301 lb 11.2 oz (136.9 kg) Estimated body mass index is 47.25 kg/m?? as calculated from the following: Height as of this encounter: 5' 7 (1.702 m). Weight as of this encounter: 301 lb 11.2 oz (136.9 kg). Date 07/20/19699 - 07/21/1965807/21/19699 - 07/22/19 0659 Shift 6120-7537 2088-4822 4746-2158 24 Hour Total 6080-5610 9536-3113 7932-9136 24 Hour Total INTAKE P.O. 240 0 240 P.O. 240 0 240 I.V.(mL/kg) 360(2.6) 360(2.6) Volume (mL) (lactated Ringers infusion) 360 360 Blood 401.7 303.3 705 Volume (Transfuse RBC) 401.7 401.7 Volume (Transfuse RBC) 303.3 303.3 Shift Total(mL/kg) 641.7(4.7) 663.3(4.8) 1305(9.5) OUTPUT Urine(mL/kg/hr) 250(0.2) 0(0) 250(0.1) 200 200 Urine 250 0 250 200 200 Urine Occurrence 0 x 0 x 0 x Emesis/NG output 0 0 0 0 0 Emesis 0 0 0 0 0 Emesis Occurrence 0 x 0 x 0 x Stool 0 0 0 0 0 Stool Occurrence 0 x 0 x 0 x Stool 0 0 0 0 0 Shift Total(mL/kg) 250(1.8) 0(0) 250(1.8) 200(1.5) 200(1.5) Weight (kg) 137.1 137.1 136.8 136.8 136.8 136.8 136.8 136.8 RESPIRATORY Ventilator Setting: No data found. Fi02 Requirement: No data found. Last ABG: Lab Results Component Value Date PCO2 34 (L) 10/09/2017 [id number] 97.6 10/09/2017 Physical Exam General: A&Ox3, NAD, laying comfortably in bed HEENT: normocephalic, atraumatic Neck: neck supple and symmetrical Cardiac: regular rate and rhythm, no M/R/G, normal S1 and S2 Pulm: aerating well, bilaterally CTA, no crackles, no wheezes, no rhonchi Abd: normal bowel sounds, soft, non-tender to palpation, +obese, +L scar Extremities: atraumatic, no cyanosis, no LE edema Skin: atraumatic, no rashes or lesions Neuro: moving all extremities without difficulty, grossly intact Laboratory Data Recent Labs 07/19/19235607/20/1962707/21/19132 WBC 7.1 5.5 5.7 HGB 7.4* 6.7* 7.3* HCT 23.0* 21.0* 22.6* MCV 84.3 83.5 84.1 PLT 149 134* 131* Recent Labs 07/19/19235607/20/1962707/21/19 013 NA 134 132* 135 K 5.4* 4.9 4.9 CL 101 101 101 CO2 19* 19* 21 BUN 58* 57* 61* CREATININE 7.45* 7.70* 8.09* GLUCOSE 270* 220* 190* CALCIUM 7.3* 7.4* 7.4* MG 1.7 -- -- PHOS 4.9* 4.1 5.6* ANIONGAP 14 12 13 Recent Labs 07/19/19 2357 INR 1.1 PROTIME 15.0 FSBS Range: Recent Labs 07/19/19 2345 07/20/19 0833 07/20/19 1214 07/20/19 1703 07/20/19 2121 POCGMD 272* 195* 150* 135* 151* Recent Labs 07/19/19 2357 07/20/19 0628 ALT 6* 8 AST 12* 15 ALKPHOS 98 87 BILITOT 0.3 0.3 Cardiac Labs: Recent Labs 07/20/19 0952 CKTOTAL 370* No results for input(s): CHOLTOT, TRIG, HDL, CHOLHDL, LDL in the last 72 hours. Invalid input(s): VLDCHOL Lab Results Component Value Date HGBA1C 6.8 (A) 07/18/2019 HGBA1C 7.2 (A) 05/15/2019 HGBA1C 7.4 (H) 12/13/2018 Nephro Labs: Recent Labs 07/20/19 0606 COLORU Yellow CLARITYU Cloudy* PROTEINUA >=500* PHUR 6.0 LABSPEC 1.017 GLUCOSEU 150* BLOODU Small* LEUKOCYTESUR Negative NITRITE Negative BILIRUBINUR Negative UROBILINOGEN <2.0 RBCUA 6* WBCUA 1 BACTERIA Few* Recent Labs 07/20/19 1339 NAUR 21 KUR 56.0 CLUR 22 No results found for: MICROALBUR, [id number] Lab Results Component Value Date PTH 164.0 (H) 01/14/2019 CALCIUM 7.4 (L) 07/21/2019 PHOS 5.6 (H) 07/21/2019 Lab Results Component Value Date ULPQ79A 15.8 (L) 01/14/2019 Anemia Labs: Lab Results Component Value Date IRON 51 05/15/2019 TIBC 266 05/15/2019 FERRITIN 225 05/15/2019 Lab Results Component Value Date [id number] 525 05/15/2019 Sepsis Marker Labs: Recent Labs 07/20/19 0021 LACTATE 0.7 Lab Results Component Value Date FIBRINOGEN 454 (H) 07/20/2019 No results for input(s): TEGANGLE, TEGKTIME, CCITBBOB31, TEGMAXAMPL, TEGRTIME, CBMZ in the last 72 hours. No results for input(s): ESR, CRP in the last 72 hours. No results found for: ESR, CRP Infectious Labs Urine cx: Lab Results Component [...] found for: HIV1X2 No results found for: [id number] No results found for: VDRLCSF Lab Results Component Value Date HEPAIGM Nonreactive 08/21/2017 HEPBCAB Nonreactive 12/13/2018 No results found for: [id number] No results found for: [id number] Diagnostic Studies Renal Ultrasound: Results for orders placed during the hospital encounter of 06/27/19 US Retroperitoneal complete Narrative EXAM: US RETROPERITONEAL COMPLETE INDICATION: CARMEN on CKD, COMPARISON: Abdominal ultrasound dated 01/12/2019 TECHNIQUE: Grayscale and color Doppler imaging acquisition was performed for evaluation of the kidneys and urinary bladder. FINDINGS: Right Kidney: 9.9 x 5.3 x 5.1 cm. There is no hydronephrosis. Normal echogenicity. No masses or calculi are appreciated. Left Kidney: 10.4 x 5.6 x 5.7 cm. There is no hydronephrosis. Normal echogenicity. No masses or calculi are appreciated. Bladder: Evaluation of the bladder is limited, but is grossly unremarkable. Other: None Impression IMPRESSION: Normal renal ultrasound. Approved by Jimmy Velasquez MD on 06/28/2019 3:29 PM EST I have personally reviewed the images and I agree with this report. Report Verified by: Lion Mike MD at 06/28/2019 4:36 PM EST No results found for this or any previous visit. Radiology last 48 hours: X-ray Portable Chest Result Date: 07/20/2019 EXAM: XR PORTABLE CHEST INDICATION: Dyspnea, unspecified TECHNIQUE: Portable AP view of the chest. COMPARISON: 01/12/2019 FINDINGS: Exam was performed on 07/20/2019 4:47 AM EST. Medical Devices: None. Heart and Mediastinum: Cardiomediastinal silhouette is within normal limits. Lungs and Pleura: Lungs a re clear with no focal consolidations or pleural effusions. No evidence for pneumothorax. Bones: Noacute osseous abnormalities. IMPRESSION: Negative portable chest. Approved by Felice Arnett MD on 07/20/2019 5:57 AM EST I have personally reviewed the images and I agree with this report. Report Verified by: William Mathew MD at 07/20/2019 6:13 AM EST Medical Decision Making: Leoncio Rollins is a 44 y.o. male with Ryrfg-ts-txhiehb kidney injury (CMS Dx). Medical problems being addressed in this encounter include the following: Principal Problem: Oqanw-pm-ouhhjur kidney injury (CMS Dx) Active Problems: Group C streptococcal infection In addition to the above an extensive amount of complex data in the patients lab and chart were reviewed. Morbidity / complication risk is felt to be: moderate / high. Assessment and Plan: Leoncio Rollins is a 44 y.o. male with a past medical history of JC on CPAP, CKD, KIM Cirrhosis with EV s/p??liver transplant??09/2017 who presented on 07/19/2019 with Fevers. Nephrology is consulted for CARMEN. #) Oliguric Acute Kidney Injury (CARMEN) on CKD stage 4-5: - Baseline creatinine: 4.4-4.9 ; admission creatinine 7.7. KDIGO Stage: 1-2. - Baseline CKD stage 4-5. Etiology unclear. He declined renal biopsy previously. Known to have nephrotic range proteinuria: serologies negative except TERESA 1:160 and faint monoclonal band on SPEP on 02/28/19. Etiology of CKD and proteinuria unclear - diabetic nephropathy is possible despite A1c is not very high in the setting of CNI exposure. - Urine output: Oliguric. 100-300 ml UOP so far. - Patient denies h/o CARMEN, kidney stones, gout, skin lesions, thyroid problems, NSAID use, multiple UTI's, or hematuria. Patient denies urinary symptoms; voiding normally and without difficulty emptying bladder. - Evaluations / DDx: - History of falls: CK: 370 - Anemia: but hemolysis labs neg, high Hapto, increased LDH - Anders needed - H/o poor PO intake recently and Hgb 6.7, possibly Pre-Renal. Urine Na+ 21, 32 and Cl 22. Urine studies look pre-renal. - No recent contrast exposure, no antibiotics, no known hypotension. - Less likely Tacro toxicity: 2.2. - UPCR >6. - CARMEN etiology seems related to infection, Pre-renal and ATN. Given falls, CT abd ordered to assessfor RP bleed. He is fevering with +bacteremia; possible ATN. He has underlying severe progressive proteinuric CKD and high risk of progression to dialysis. CT abdomen shows no hydro. Creatinine continues to worse with low UOP. We will plan to initiate dialysis, see plan below. #) Electrolytes: - No acute concerns. - Hyponatremia: hypovolemic? Not hypervolemic. BG slightly elevated. - Labs: Lab Results Component Value Date CREATININE 8.09 (H) 07/21/2019 BUN 61 (H) 07/21/2019 NA 135 07/21/2019 K 4.9 07/21/2019 CL 101 07/21/2019 CO2 21 07/21/2019 Lab Results Component Value Date PTH 164.0 (H) 01/14/2019 CALCIUM 7.4 (L) 07/21/2019 PHOS 5.6 (H) 07/21/2019 #) Acid/Base: NAGMA? - CO2 19 - No blood gas. - Home med: sodium bicarb tabs 1.3g BID = continue. - Labs: Lab Results Component Value Date PHART 7.41 10/09/2017 PCO2 34 (L) 10/09/2017 PO2ART 123 (H) 10/09/2017 [id number] 21 (L) 10/09/2017 BEART -2.9 (L) 10/09/2017 [id number] 97.6 10/09/2017 #) Volume Status: - Euvolemic to Hypovolemic. Intake/Output Summary (Last 24 hours) at 07/21/2019 0955 Last data filed at 07/21/2019 0700 Gross per 24 hour Intake 1305 ml Output 450 ml Net 855 ml #) Blood Pressures: Hypertension: - Home meds: coreg 50mg BID, clonidine 0.1mg BID, nifedipine 90mg BID (rather high dose), [id number] nightly, Torsemide held. - Per primary team #) Anemia in Chronic Kidney Disease: - Hgb 12 from a few days prior to admission, seems inaccurate. - Hgb 6.7 on admission, s/p pRBC. - Iron studies / Ferritin: JOSE ALFREDO from 05/2019 - B12 and Folate #) Chronic Kidney Disease-Bone Mineral Disorder: Secondary Hyperparathyroidism: - Home: Ergo 50,000 u weekly. Recommendations: - Agree with CT abd to assess for RP bleed. - Agree with volume challenge. - Discussed with patient that he is high risk of needing dialysis soon. - Consider placing anders given intermittent AMS. - Holding home torsemide. - Order: VBG, iron studies prior to transfusion, B12, Folate. - Avoid nephrotoxic medications (contrast dye, NSAIDs). - Daily Standing Weights and strict I/O's. - At this point, he likely has progression of his CKD with now CARMEN in sepsis. He will likely need dialysis soon, discussed this with him and family today. He may need Temp HD line tomorrow (or preferably a TDC if blood cultures are negative at 48 hrs) for dialysis initiation. Thank you for allowing us to participate in the care of this patient. We will continue to follow. Patient was seen and discussed with Attending, Dr Rawls. Signed: Miguel Jung MD Nephrology Fellow PGY-5 07/21/2019, 9:55 AM Cosigned by Destin Rawls MD at 07/21/2019 6:07 PM EST Associated attestation - Destin Rawls MD - 07/21/2019 6:07 PM EST I have seen and examined the patient, reviewed the notes, assessments, and/or procedures performed by the fellow/resident/DANCE COSTUME DESIGNER and I concur with her/his documentation of the patient. My physical exam confirms the findings listed above. Review of labs, pathology reports, radiograph reports, and medical records confirm the findings noted above. I have edited the note where appropriate. I have discussed my findings and recommendations with the patient/family when appropriate and answered their questions. Overnight events noted D/w pt and family at length re: imminent need for HD. Will more likely get a temp line till he is bacteremic and later a tunneled catheter Monitor Uop/Cr/renal labs Holding torsemide Destin Rawls MD Transplant Nephrology Attending * Stan Larios DO - 07/21/2019 7:50 AM EST Department of Internal Medicine Progress Note Patient: Leoncio Rollins CSN: [id number] Chief Complaint Fever at OSH, elevated Cr History of Present Illness Leoncio Rollins is a 44 y.o. male with a history of JC on CPAP, CKD, KIM Cirrhosis with EV s/p??liver transplant??09/2017 who presents as direct admit from OSH due to concern for infection and CARMEN insetting of previous transplant on immunosuppression. Interval History Mr. Rollins had a rough night as he became altered and aggressive with staff (See Dr. Stevan Chu's note). This morning, however, he is pleasant and says he did not hit anyone. He denies any active confusion and was oriented to place and situation. He is still having abdominal pain but is otherwise in NAD and hemodynamically stable. Blood Cultures from OSH reported Grp C Strep bacteremia. His renal function continues to worsen. Assessment & Plan Leoncio Rollins is a 44 y.o. male being admitted to the hospital for fever and CARMEN. Medical problemsbeing addressed in this encounter include the following: Principal Problem: Qrqlq-bl-cfdpozl kidney injury ([facility] Dx) Today's updated plan: 1) Getting CT head 2) Switching to abx to CTX, per ID 3) Worsening renal function, patient not solutes, poor urine output -> Dialysis likely, will have tunneled line placed tomorrow (hopefully) when blood cultures show no growth for 48hrs 4) Consulting Neuro-rads for LP 5) Restart tacro #Fever in immunocompromised patient - pt denies any recent fevers, states he has been 'shaking' recently but think this is due to his tacro dose. States elevated temp at OSH was due to room being too warm. - source unclear, unlikely pulmonary given OSH CXR, will repeat, will repeat blood cx and urine cx - HDS, fibrile - WBC 8.09 - UA at OSH + for blood but not concerning for infection, no sx - urine cx, blood cx (blood cx grew Grp C Strep at OSH) - IVF - switching to abx to CTX, per ID - holding immunosuppression - discussed with transplant hepatology ?? #Acute on chronic kidney injury Follows nephrology who recommended biopsy in past. No indication for urgent dialysis (no acidosis, hyperkalemia, uremia). - Baseline Cr 4-5, 7 on admission, K 5.4 on admission, BUN 58 - Consult transplant nephrology - hold home torsemide - gentle IVF -strict I/o, urine lytes ?? #Non-anion AG metabolic acidosis likely due to acute kidney injury - bicarb 19 on admission to [facility] - continue sodium bicarb as patient takes at home -trend renal panel ?? # Acute on chronic anemia - pt recently admitted in Jun. Patient received 1 unit PRBCs on 06/29. Hemolysis labs negative at thattime.?? 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 #Hypertension - continue on coreg, clonidine, nifedipine, and terazosin - holding torsemide ?? #Neuropathic pain -gabapentin 400mg nightly PRN # RLS - continue carbamazepine Review of Systems Gen: + fatigue No weight loss, no fevers, no chills, no night sweats HEENT: No lymphadenopathy, no vision changes CV: No chest pain, no palpitations Resp: No cough, no shortness of breath, no sputum GI: + diarrhea, no constipation, no nausea, no vomiting : No dysuria, no discharge MSK: + sided chest wall pain from recent fall, No myalgia, no arthralgia Neuro: No seizure, no weakness, no headache Endo: No polyuria, no cold intolerence Heme: No easy bruising, no easy bleeding Derm: No rash, no wound Past Medical History Past Medical History: Diagnosis [...] file Gets together: Not on file Attends roman catholic service: Not on file Active member of [...] 10/17/17 Bere Feng CNP blood sugar diagnostic Str Use to test blood sugar up to 4 times a day. Diagnosis for use: E 9.65.For use with One Touch Verio meters. 10/18/17 Bere Feng CNP blood-glucose meter (ONETOUCH VERIO SYSTEM) [facility] [place] as instructed. 10/18/17 Bere Feng CNP carBAMazepine (TEGRETOL) 200 mg tablet Take 200 mg by mouth at bedtime. Historical Provider, carvedilol (COREG) 25 MG tablet Take 2 tablets (50 mg total) by mouth 2 times a day with meals. 10/26/17 Bere Feng CNP cloNIDine HCl (CATAPRES) 0.1 MG tablet Take 1 tablet (0.1 mg total) by mouth if needed. Patient taking differently: Take 0.1 mg by mouth 2 times a day. 01/17/19 Niurka Valles MD doxazosin (CARDURA) 8 MG tablet 8 mg 2 times a day. 05/12/18 Historical Provider, entecavir (BARACLUDE) 0.5 MG tablet Take 1 tablet (0.5 mg total) by mouth every 72 hours. 07/01/19 Malinda Rhodes MD ergocalciferol (VITAMIN D2) 50,000 unit capsule [...] and at bedtime. 10/18/17 Bere Feng CNP mycophenolate (CELLCEPT) 250 mg capsule Take 3 capsules (750 mg total) by mouth 2 times a day. 06/25/19 Arnold Ordoñez MD NIFEdipine (PROCARDIA-XL) 90 MG (OSM) 24 hr tablet Take 90 mg by mouth 2 times a day. 04/23/18 Historical Provider, ondansetron (ZOFRAN-ODT) 4 MG disintegrating tablet every 8 hours as needed. 04/11/18 Historical Provider, MD way needle diabetic 32 gauge x Ndle Use as directed to inject insulin 4 times daily. 10/16/17 Bere Feng CNP pen needle diabetic 32 gauge x 532 Ndle For use with insulin pen. Use as instructed. 10/16/17 Bere Feng CNP polyethylene glycol (MIRALAX) 17 gram packet Take 17 g by mouth 2 times a day as needed. 01/17/19 Niurka Valles MD sodium bicarbonate 650 MG tablet Take 2 tablets (1,300 mg total) by mouth 2 times a day. 07/01/19 Malinda Rhodes MD tacrolimus ER, 24 HR, (ENVARSUS XR) 1 mg Tb24 Take 3 tablets (3 mg total) by mouth daily. Per Hepatology recommendations 07/01/19 Malinda Rhodes MD torsemide (DEMADEX) 20 MG tablet Take 1 tablet (20 mg total) by mouth daily. 03/01/19 Aris Moctezuma MD Inpatient Meds: Scheduled: Continuous: PRN: Vital Signs Temp: [98.1 ??F (36.7 ??C)-102.8 ??F (39.3 ??C)] 98.1 ??F (36.7 ??C) Heart Rate: [80-96] 80 Resp: [16-20] 17 BP: (119-155)/(65-86) 126/86 Intake/Output Summary (Last 24 hours) at 07/21/2019 0751 Last data filed at 07/21/2019 0532 Gross per 24 hour Intake 1305 ml Output 250 ml Net 1055 ml Physical Exam Vital signs reviewed. General: Well appearing, obese age appropriate male, in no acute distress JOLANTA: Normocephalic, atraumatic, PERRL, EOMs intact Neck: No JVD, trachea midline Heart: Regular rate and rhythm, no murmurs, rubs, gallops Lungs: Clear to auscultation bilaterally, no wheezes or rales, normal work of breathing Chest: quarter-sized bruise on L side of chest wall Back: Symmetric, no CVA tenderness Abdomen: Soft, obese, non-tender, distended, + liver transplant scar Extremities: No clubbing, 2+ pitting edema to mid calf bilaterally, no asterixis Skin: No rashes, no wounds, no jaundice Neuro: AOx4, moves all 4 extremities, follows commands Psych: Alert and appropriate, normal affect Laboratory Data Lab 07/21/19 0133 07/20/19 0628 07/19/19 2357 07/18/19 0940 WBC 5.7 5.5 7.1 4.37 HEMOGLOBIN 7.3* 6.7* 7.4* 12.8* HEMATOCRIT 22.6* 21.0* 23.0* 41 MEAN CORPUSCULAR VOLUME 84.1 83.5 84.3 85.1 PLATELETS 131* 134* 149 134 Lab 07/21/193 07/20/1962707/19/19235607/18/19 0940 SODIUM 135 132* 134 141 POTASSIUM 4.9 4.9 5.4* 4.5 CHLORIDE 101 101 101 106 CO2 21 19* 19* 18 BUN 61* 57* 58* 20 CREATININE 8.09* 7.70* 7.45* 1.75* GLUCOSE 190* 220* 270* 169 Lab 07/21/1913207/20/1962707/19/19235607/18/19 0940 CALCIUM 7.4* 7.4* 7.3* 9.2 MAGNESIUM -- -- 1.7 -- PHOSPHORUS 5.6* 4.1 4.9* 2.9 Lab 07/19/192356 INR 1.1 PROTHROMBIN TIME 15.0 Lab 07/21/1913207/20/1962707/19/19235607/18/19 0940 ALT -- 8 6* 18 AST -- 15 12* 20 ALK PHOS -- 87 98 77 BILIRUBIN TOTAL -- 0.3 0.3 0.28 BILIRUBIN DIRECT -- 0.07 0.05 -- ALBUMIN 3.1* 3.2* 3.2* 3.3* 3.3* 4.2 Lab 07/20/19 0606 COLOR, URINE Yellow CLARITY Cloudy* SPECIFIC GRAVITY, URINE 1.017 PH UA 6.0 PROTEIN UA >=500* GLUCOSE UA 150* KETONES UA Negative BILIRUBIN UA Negative BLOOD UA Small* NITRITE UA Negative UROBILINOGEN UA <2.0 LEUKOCYTES UA Negative RBC UA 6* WBC UA 1 BACTERIA Few* MUCUS Present* Lab 07/20/19 0952 CK TOTAL 370* No results found for: NTPROBNP Lab Results Component Value Date TSH 2.02 12/20/2017 FREET4 1.03 10/20/2017 Lab 07/20/19 2121 07/20/19 1703 07/20/19 1214 07/20/19 0833 POC GLU MONITORING DEVICE 151* 135* 150* 195* Diagnostic Studies X-ray Portable Chest Final Result IMPRESSION: Negative portable chest. Approved by Felice Arnett MD on 07/20/2019 5:57 AM EST I have personally reviewed the images and I agree with this report. Report Verified by: William Mathew MD at 07/20/2019 6:[address] Abdomen and Pelvis WO IV contrast (Results Pending) CT Head WO contrast (Results Pending) Nutrition: Diet Orders Diet renal starting at 07/194 Code Status: Full Code Signed: STAN LARIOS DO 07/21/2019, 7:51 AM Cosigned by Teri Choi MD at 07/21/2019 3:23 PM EST Associated attestation - Teri Choi MD - 07/21/2019 3:23 PM EST I saw and examined the patient on 07/21/2019, and discussed the case with the resident , Dr. Lariosand agree with the findings and plan as documented in the resident???s note. Overnight events noted. Patient oriented and cooperative today- doesn't remember hitting nurse. MS at baseline. Appreciate renal input- plans to initiate dialysis after catheter placement (after cx negative) Appreciate ID input. B.Cx at OSH growing Gp C streptococcus. On abx. CT scan negative for retroperitoneal bleed. No evidence of GIB. Discussed with patient and family at bedside and all questions answered. Teri Choi MD Online Marketing Manager Division of Digestive Diseases * Mukul DO Kimberley - 07/21/2019 4:42 AM EST Night Team Note Around midnight, the patient was being aggressive with his nurse. He was acting confused and did not know that he was in the hospital. He was placed in soft restraints with security assistance. I evaluated the patient at bedside. He was alert, and not overly aggressive by the time I arrived but clearly frustrated. He was not oriented to place but accurately identified name, month, year and reasonfor hospitalization. He was non-focal on exam, w/ intact cranial nerves B/L, EOMI, PERRLA and freely moving all extremities w/ 5/5 strength in UE and LE b/l. Given his increased confusion. We repeated labs including VBG, renal panel, CBC, ammonia and ECG. ECG was difficult to interpret due to movement but patient was not having CP or increased SOB. Otherwise labs appeared stable compared to prior. We ordered a CTH given his fever while on immunosuppression and increased confusion. Reviewed ID recommendations. Patient may need LP in AM and will need a TTE during this admission. Mukul Chu DO Internal Medicine, PGY-1 Night Team C * Linsey Buckner RRT - 07/21/2019 12:30 AM EST RT entered room with RN at bedside. Patient is restraint but alert. Patient able to tell me his name and the year, and knew he was at the hospital. I attempted to place on Bipap. Patient said no and began moving head back and forth to avoid mask. Patient states he is claustrophobic. I attempted to talk the patient into trying the mask for a little while, explaining the need for it. Patient verbali zed again that he did not want to wear the mask and could not tolerate it. RN asked RT to place bipap against patient wishes. I am not comfortable doing that on a patient this alert. RN paged team toinform of refusal. * Stan Larios DO - 07/20/2019 3:02 PM EST Department of Internal Medicine Progress Note Patient: Leoncio Rollins CSN: [id number] Chief Complaint Fever at OSH, elevated Cr History of Present Illness Leoncio Rollins is a 44 y.o. male with a history of JC on CPAP, CKD, KIM Cirrhosis with EV s/p??liver transplant??09/2017 who presents as direct admit from OSH due to concern for infection and CARMEN insetting of previous transplant on immunosuppression. Interval History Mr. Rollins had a fever overnight and has some flank pain from his fall. His hemoglobin was 6.7 thisAM and he states that he has been feeling fatigued. He has produced approximately 200 mL of urine since 8 AM. He denies any chills, bruising, new/worsening abdominal pain, hematochezia/melena and is resting comfortably in bed. Assessment & Plan Leoncio Rollins is a 44 y.o. male being admitted to the hospital for fever and CARMEN. Medical problemsbeing addressed in this encounter include the following: Principal Problem: Loyci-bv-kwpgith kidney injury (CMS Dx) Today's updated plan: 1) Getting urine lytes, p/c ratio, strict I/Os 2) Consult Renal Transplant service, appreciate recs 3) CT Ab/Pel to look for site of possible bleed and hydronephrosis/obstruction 4) Consult Transplant ID, appreciate recs 5) Consult pharm re: entacovir and tacro dosing (AM tacro trough pending) 6) ADELAIDA with hemoccult #Fever in immunocompromised patient - pt denies any recent fevers, states he has been 'shaking' recently but think this is due to his tacro dose. States elevated temp at OSH was due to room being too warm. - source unclear, unlikely pulmonary given OSH CXR, will repeat, will repeat blood cx and urine cx - HDS on arrival, noted to be febrile to 102 overnight - WBC 7, lactate 0.7 on admission to [facility] - UA at OSH + for blood but not concerning for infection, no sx - urine cx, blood cx - IVF - start cefepime and pulse-dose vanc - pharmacy notified - holding immunosuppression - discussed with transplant hepatology ?? #Acute on chronic kidney injury Follows nephrology who recommended biopsy in past. No indication for urgent dialysis (no acidosis, hyperkalemia, uremia). - Baseline Cr 4-5, 7 on admission, K 5.4 on admission, BUN 58 - Consult transplant nephrology - hold home torsemide - gentle IVF -strict I/o, urine lytes ?? #Non-anion AG metabolic acidosis likely due to acute kidney injury - bicarb 19 on admission to [facility] - continue sodium bicarb as patient takes at home -trend renal panel ?? # Acute on chronic anemia - pt recently admitted in Jun. Patient received 1 unit PRBCs on 06/29. Hemolysis labs negative at thattime.?? 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 #Hypertension - continue on coreg, clonidine, nifedipine, and terazosin - holding torsemide ?? #Neuropathic pain -gabapentin 400mg nightly PRN # RLS - continue carbamazepine Review of Systems Gen: + fatigue No weight loss, no fevers, no chills, no night sweats HEENT: No lymphadenopathy, no vision changes CV: No chest pain, no palpitations Resp: No cough, no shortness of breath, no sputum GI: + diarrhea, no constipation, no nausea, no vomiting : No dysuria, no discharge MSK: + sided chest wall pain from recent fall, No myalgia, no arthralgia Neuro: No seizure, no weakness, no headache Endo: No polyuria, no cold intolerence Heme: No easy bruising, no easy bleeding Derm: No rash, no wound Past Medical History Past Medical History: Diagnosis [...] AM DAY PRIOR s/p liver transplant; Surgeon: aJy Talley MD; Location: [facility]; Service: [...] file Gets together: Not on file Attends roman catholic service: Not on file Active member of [...] Feng CNP blood-glucose meter (ONETOUCH VERIO SYSTEM) [facility] Use as instructed. 10/18/17 Bere Feng CNP carBAMazepine (TEGRETOL) 200 mg tablet Take 200 mg by mouth at bedtime. Historical Provider, carvedilol (COREG) 25 MG tablet Take 2 tablets (50 mg total) by mouth 2 times a day with meals. 10/26/17 Bere Feng CNP cloNIDine HCl (CATAPRES) 0.1 MG tablet Take 1 tablet (0.1 mg total) by mouth if needed. Patient taking differently: Take 0.1 mg by mouth 2 times a day. 01/17/19 Niurka Valles MD doxazosin (CARDURA) 8 MG tablet 8 mg 2 times a day. 05/12/18 Historical Provider, entecavir (BARACLUDE) 0.5 MG tablet Take 1 tablet (0.5 mg total) by mouth every 72 hours. 07/01/19 Malinda Rhodes MD ergocalciferol (VITAMIN D2) 50,000 unit capsule [...] and at bedtime. 10/18/17 Bere Feng CNP mycophenolate (CELLCEPT) 250 mg capsule Take 3 capsules (750 mg total) by mouth 2 times a day. 06/25/19 Arnold Ordoñez MD NIFEdipine (PROCARDIA-XL) 90 MG (OSM) 24 hr tablet Take 90 mg by mouth 2 times a day. 04/23/18 Historical Provider, ondansetron (ZOFRAN-ODT) 4 MG disintegrating tablet every 8 hours as needed. 04/11/18 Historical Provider, pen needle, diabetic 32 gauge x Ndle Use as directed to inject insulin 4 times daily. 10/16/17 Bere Feng CNP pen needle, diabetic 32 gauge x 32 Ndle For use with insulin pen. Use as instructed. 10/16/17 Bere Feng CNP polyethylene glycol (MIRALAX) 17 gram packet Take 17 g by mouth 2 times a day as needed. 01/17/19 Niurka Valles MD sodium bicarbonate 650 MG tablet Take 2 tablets (1,300 mg total) by mouth 2 times a day. 07/01/19 Malinda Rhodes MD tacrolimus ER, 24 HR, (ENVARSUS XR) 1 mg Tb24 Take 3 tablets (3 mg total) by mouth daily. Per Hepatology recommendations 07/01/19 Malinda Rhodes MD torsemide (DEMADEX) 20 MG tablet Take 1 tablet (20 mg total) by mouth daily. 03/01/19 Aris Moctezuma MD Inpatient Meds: Scheduled: Continuous: PRN: Vital Signs Temp: [97.8 ??F (36.6 ??C)-102.8 ??F (39.3 ??C)] 102.5 ??F (39.2 ??C) Heart Rate: [86-97] 86 Resp: [16-18] 18 BP: (127-155)/(62-82) 128/69 Intake/Output Summary (Last 24 hours) at 07/20/2019 1503 Last data filed at 07/20/2019 0602 Gross per 24 hour Intake 120 ml Output 300 ml Net -180 ml Physical Exam Vital signs reviewed. General: Well appearing, obese age appropriate male, in no acute distress JOLANTA: Normocephalic, atraumatic, PERRL, EOMs intact Neck: No JVD, trachea midline Heart: Regular rate and rhythm, no murmurs, rubs, gallops Lungs: Clear to auscultation bilaterally, no wheezes or rales, normal work of breathing Chest: quarter-sized bruise on L side of chest wall Back: Symmetric, no CVA tenderness Abdomen: Soft, obese, non-tender, distended, + liver transplant scar Extremities: No clubbing, 2+ pitting edema to mid calf bilaterally, no asterixis Skin: No rashes, no wounds, no jaundice Neuro: AOx4, moves all 4 extremities, follows commands Psych: Alert and appropriate, normal affect Laboratory Data Lab 07/20/1962707/19/19235607/18/19 0940 WBC 5.5 7.1 4.37 HEMOGLOBIN 6.7* 7.4* 12.8* HEMATOCRIT 21.0* 23.0* 41 MEAN CORPUSCULAR VOLUME 83.5 84.3 85.1 PLATELETS 134* 149 134 Lab 07/20/1962707/19/19235607/18/19 0940 SODIUM 132* 134 141 POTASSIUM 4.9 5.4* 4.5 CHLORIDE 101 101 106 CO2 19* 19* 18 BUN 57* 58* 20 CREATININE 7.70* 7.45* 1.75* GLUCOSE 220* 270* 169 Lab 07/20/1962707/19/19235607/18/19 0940 CALCIUM 7.4* 7.3* 9.2 MAGNESIUM -- 1.7 -- PHOSPHORUS 4.1 4.9* 2.9 Lab 07/19/192356 INR 1.1 PROTHROMBIN TIME 15.0 Lab 07/20/1962707/19/19235607/18/19 0940 ALT -- 6* 18 AST -- 12* 20 ALK PHOS -- 98 77 BILIRUBIN TOTAL -- 0.3 0.28 BILIRUBIN DIRECT -- 0.05 -- ALBUMIN 3.2* 3.3* 3.3* 4.2 Lab 07/20/19 0606 COLOR, URINE Yellow CLARITY Cloudy* SPECIFIC GRAVITY, URINE 1.017 PH UA 6.0 PROTEIN UA >=500* GLUCOSE UA 150* KETONES UA Negative BILIRUBIN UA Negative BLOOD UA Small* NITRITE UA Negative UROBILINOGEN UA <2.0 LEUKOCYTES UA Negative RBC UA 6* WBC UA 1 BACTERIA Few* MUCUS Present* Lab 07/20/19 0952 CK TOTAL 370* No results found for: NTPROBNP Lab Results Component Value Date TSH 2.02 12/20/2017 FREET4 1.03 10/20/2017 Lab 07/20/19 1214 07/20/19 0833 07/19/19 2345 POC GLU MONITORING DEVICE 150* 195* 272* Diagnostic Studies X-ray Portable Chest Final Result IMPRESSION: Negative portable chest. Approved by Felice Arnett MD on 07/20/2019 5:57 AM EST I have personally reviewed the images and I agree with this report. Report Verified by: William Mathew MD at 07/20/2019 6:[address] Abdomen and Pelvis WO IV contrast (Results Pending) Nutrition: Diet Orders Diet renal starting at 07/19 2314 Code Status: Full Code Signed: STAN LARIOS DO 07/20/2019, 3:03 PM Cosigned by Teri Choi MD at 07/22/2019 9:45 AM EST Associated attestation - Teri Choi MD - 07/22/2019 9:45 AM EST Pls see my note from the same date. Teri Choi MD Online Marketing Manager Division of Digestive Diseases * Nani Brooks PharmD - 07/20/2019 11:24 AM EST Images from the original note were not included. [facility] Clinical Pharmacy Service: Vancomycin Monitoring Consult --Assessment and Plan-- Assessment CARMEN on CKD Plan No additional doses of vancomycin today Vancomycin level with AM labs Monday, ~ 24 hour level Nani Brooks PharmD, [facility] pager [phone] Clinical Pharmacist, Internal Medicine [Clinical Pharmacist air pollution inspector [phone]] Indication: empiric treatment for fevers in immunocompromised Goal trough: 10-20 mg/L Current Anti-Infectives Dose Frequency Start End cefepime (MAXIPIME) 1 g in sodium chloride 0.9% 50 mL IVPB ADDaptor 1 g Every 24 hours 07/20/2019 Admin Instructions: For Hemodialysis patients - on dialysis days, please administer Cefepime dose after completion of hemodialysis.
Use ADDaptor product - Mix Thoroughly Before Administration Route: Intravenous vancomycin (VANCOCIN) 3,000 mg in sodium chloride 0.9 % 500 mL IVPB (Completed) 25 mg/kg ?? 137 kg Once 07/20/2019 07/20/2019 Admin Instructions: Contact pharmacy if there is a question/concern of whether vancomycin should begiven based on serum drug levels. Route: Intravenous Linked Group 1: Followed by Linked Group Details vancomycin intermittent/pulse dosing PLACEHOLDER ORDER Use as directed PRN 07/20/2019 Admin Instructions: Patient is receiving intermittent/pulse vancomycin dosing based on random serumlevels. NOTE:This is NOT an active medication order. If a dose of vancomycin is needed, it must be entered as a one-time dose by physicians or pharmacists. Route: Intravenous documented within (last 72 hours) Date/Time Action Medication Dose Rate 07/20/19 05 Given vancomycin (VANCOCIN) 3,000 mg in sodium chloride 0.9 % 500 mL IVPB 3,000 mg 166.7 mL/hr --Objective Data-- Vitals: 07/20/19 0422 07/20/19 0535 07/20/19 0831 07/20/19 1121 BP: 155/73 Pulse: 96 Resp: 18 Temp: 101 ??F (38.3 ??C) (!) 101.7 ??F (38.7 ??C) (!) 102.8 ??F (39.3 ??C) 101.3 ??F (38.5 ??C) TempSrc: Oral Oral Oral Oral SpO2: 90% Weight: (!) 302 lb 4.8 oz (137.1 kg) Height: I/O last 3 completed shifts: In: 120 [P.O.:120] Out: 300 [Urine:300] WBC, BUN, Creatinine (Last 7 days) WBC BUN Creatinine 5.5 10E3/uL 07/20/19 0628 57 mg/dL 07/20/1928 7.70 mg/dL 07/20/1928 7.1 10E3/uL 07/19/19 2357 58 mg/dL 07/19/192356 7.45 mg/dL 07/19/19 2357 4.37 10^3/mL 07/18/1940 20 mg/dL 07/18/19939 1.75 mg/dL 07/18/19939 Hinkle body weight: 66.1 kg (145 lb 11.6 oz) Adjusted ideal body weight: 94.5 kg (208 lb 5.7 oz) --Cultures-- Microbiology Results Date and Time Order Name Sensitivity Status Organisms Specimen ID Source 07/20/2019 0606 Urine culture In process [id number] Urine 07/20/2019 0128 Blood culture-Peripheral Preliminary [id number] Peripheral 07/19/2019 2357 Blood culture-Peripheral Preliminary [id number] Peripheral --Vancomycin Concentrations-- Lab Results (Last 7 days) No relevant labs found * Connie Nino PharmD - 07/20/2019 4:47 AM EST Clinical Pharmacy Consult Pharmacy consulted for IV vancomycin by Dr. Alicia Cervantes. Dosage has been assessed and dosage was adjusted to 25mg/kg x1. Given severe CARMEN, will initiate pulse dose vancomycin. Vancomycin will be dosed according to future levels. Pharmacy will continue to follow. Formal note and vancomycin levels to follow within 24 hours. Thank you for the consult. Connie Nino PharmD 07/20/19 4:48 AM documented in this encounter H&P Notes * Jose Pineda MD - 07/24/2019 12:50 PM EST [facility] PRE-SEDATION ASSESSMENT, HISTORY & PHYSICAL Date: 07/24/2019 Leoncio Rollins is a 44 y.o. year old male Pre-Procedure Diagnosis/Procedure Indication: Odynophagia, orophayngeal ulcers in post-transplant patient, rule out esophageal ulcers/esophagitis Planned Procedure: EGD NPO for solids >8 hours, NPO for liquids >8 hours Past Medical History Past Medical History: Diagnosis Date ??? Acute pancreatitis ??? Ascites ??? Diabetes mellitus (CMS Dx) ??? Esophageal varices with bleeding (CMS Dx) ??? GERD (gastroesophageal reflux disease) ??? Hepatic encephalopathy (CMS Dx) ??? Hypertension ??? 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 Vitamin D deficiency Difficult [...] kidney disease) stage 3, GFR 30-59 ml/min (CMS Dx) ??? Oijhf-jg-drdfntx kidney injury (CMS Dx) ??? Metabolic acidosis ??? Group C streptococcal infection Past Surgical History Past Surgical History: Procedure [...] 10/17/17 YesBere Feng CNP blood sugar diagnostic Str Use to test blood sugar up to 4 times a day. Diagnosis for use: E 9.65.For use with One Touch Verio meters. 10/18/17 Yes Bere Feng CNP blood-glucose meter (ONETOUCH VERIO SYSTEM) [facility] Use as instructed. 10/18/17 Yes Bere Feng CNP carBAMazepine (TEGRETOL) 200 mg tablet Take 200 mg by mouth at bedtime. Yes Historical Provider, carvedilol (COREG) 25 MG tablet Take 2 tablets (50 mg total) by mouth 2 times a day with meals. 10/26/17 Yes Bere Feng CNP cloNIDine HCl (CATAPRES) 0.1 MG tablet Take 1 tablet (0.1 mg total) by mouth if needed. Patient taking differently: Take 0.1 mg by mouth 2 times a day. 01/17/19 Yes Niurka Valles MD doxazosin (CARDURA) 8 MG tablet 8 mg 2 times a day. 05/12/18 Yes Historical Provider, entecavir (BARACLUDE) 0.5 MG tablet Take 1 tablet (0.5 mg total) by mouth every 72 hours. 07/01/19 Yes Malinda Rhodes MD ergocalciferol (VITAMIN D2) 50,000 unit capsule Take 50,000 Units by mouth once a week. Yes Historical Provider, famotidine (PEPCID) 20 MG tablet Take 20 mg by mouth daily. Yes Historical Provider, fluticasone propionate (FLONASE) 50 mcg/actuation nasal spray use 2 spray(s) in each nostril daily 12/07/18 Yes Historical Provider, gabapentin (NEURONTIN) 100 MG capsule Take 4 capsules (400 mg total) by mouth daily. 07/01/19 Yes Malinda Rhodes MD insulin glulisine U-100 (APIDRA U-100 INSULIN) 100 unit/mL injection Inject 5 Units subcutaneously 3 times a day with meals. 01/17/19 Yes Niurka Valles MD insulin NPH isoph U-100 human (HUMULIN N NPH INSULIN KWIKPEN) 100 unit/mL (3 mL) InPn Inject subcutaneously 20 units in the AM and 8 units in the PM. 07/01/19 Yes Malinda Rhodes MD lancets (ONETOUCH DELICA LANCETS) 33 gauge Misc Use 1 strip as directed 4 times daily before meals and at bedtime. 10/18/17 Yes Bere Feng CNP mycophenolate (CELLCEPT) 250 mg capsule Take 3 capsules (750 mg total) by mouth 2 times a day. 06/25/19 Yes Arnold Ordoñez MD NIFEdipine (PROCARDIA-XL) 90 MG (OSM) 24 hr tablet Take 90 mg by mouth 2 times a day. 04/23/18 Yes Historical Provider, ondansetron (ZOFRAN-ODT) 4 MG disintegrating tablet every 8 hours as needed. 04/11/18 Yes Historical Provider, MD way needle diabetic 32 gauge x 532 Ndle Use as directed to inject insulin 4 times daily. 10/16/17 Yes Bere Feng CNP pen needle diabetic 32 gauge x 532 Ndle For use with insulin pen. Use as instructed. 10/16/17 Yes Bere Feng CNP polyethylene glycol (MIRALAX) 17 gram packet Take 17 g by mouth 2 times a day as needed. 01/17/19 YesNiurka Valles MD sodium bicarbonate 650 MG tablet Take 2 tablets (1,300 mg total) by mouth 2 times a day. 07/01/19 Yes Malinda Rhodes MD tacrolimus ER, 24 HR, (ENVARSUS XR) 1 mg Tb24 Take 2 tablets (2 mg total) by mouth daily. Per Hepatology recommendations 07/19/19 Yes Arnold Ordoñez MD torsemide (DEMADEX) 20 MG tablet Take 1 tablet (20 mg total) by mouth daily. 03/01/19 Yes Aris Moctezuma MD Allergies: Codeine Sulfate Codeine Abbreviated Review of Systems (ROS) Functional Capacity: AQUINO ACTIVITY SCALE: 3 - Walking on a flat surface for one or two blocks. Chest Pain: no Shortness of Breath/Dyspnea or Exertion: no Recent URI: no Airway, ASA Score & Sedation Specific History Concerns Airway: Mallampati:: II ASA Score: ASA: III -patient with moderate systematic disease with functional limitations Sedation specific history concerns: none of the above This patient was reevaluated immediately prior to sedation administration. Focused Physical Exam: Height ; Weight ; BMI Body mass index is 45.42 kg/m??. Vitals: 07/24/19 1238 BP: 166/88 Pulse: 83 Resp: 18 Temp: 97.6 ??F (36.4 ??C) SpO2: 94% Neuro: No focal deficits Cardiovascular: RRR Respiratory: CTABL Sedation Plan: MAC Antibiotic prophylaxis is not indicated. Cosigned by Arnold Ordoñez MD at 07/25/2019 1:00 PM EST Associated attestation - Arnold Ordoñez MD - 07/25/2019 1:00 PM EST I saw and examined the patient. I discussed with the resident or fellow and agree with resident's/fellow's findings and plan as documented in the note. Rakesh Ordoñez MD Transplant Passenger Car Upholsterer Apprentice * Alicia Cervantes, DO - 07/20/2019 5:17 AM EST Department of Internal Medicine History & Physical Patient: Leoncio Rollins CSN: [id number] Chief Complaint Fever at OSH, elevated Cr History of Present Illness Leoncio Rollins is a 44 y.o. male with a history of JC on CPAP, CKD, KIM Cirrhosis with EV s/p??liver transplant??09/2017 who presents as direct admit from OSH due to concern for infection and CARMEN insetting of previous transplant on immunosuppression. Pt admitted to OSH with complaints of 'shaking' and overall weakness. The pt states he thinks his shaking was due to increase in Envarsus recently. Patient says began shaking 6 months ago when first changed from cyclosporin to tacro. 2 days ago- Began shaking again with bilateral tremors of legs and hands. He also adds that he fell out of his chair 4-5 days ago which was thought to be due to hypglycemia. CT scan at the time was negative for any acute injury. On admission to OSH 07/19, febrile to 102.9. Was started on rocephin for concern for infection as hewas noted to have a fever. Lactate and procal normal, RVP negative. WBC 8, Cr 7.1, bicarb 23. CT abd/pelvis showed stranding adjacent to prox duodenum, CT chest did not identify source for infection.Pt was then transferred to [facility] On exam today, pt states he has chest wall pain on left side- thinks this is secondary to his fall last week. Last BM today. No diarrhea, dysuria, seizure activity, congestion, sore throat, abdominaldistension. Review of Systems Gen: + fatigue No weight loss, no fevers, no chills, no night sweats HEENT: No lymphadenopathy, no vision changes CV: No chest pain, no palpitations Resp: No cough, no shortness of breath, no sputum GI: + diarrhea, no constipation, no nausea, no vomiting : No dysuria, no discharge MSK: + sided chest wall pain from recent fall, No myalgia, no arthralgia Neuro: No seizure, no weakness, no headache Endo: No polyuria, no cold intolerence Heme: No easy bruising, no easy bleeding Derm: No rash, no wound Past Medical History Past Medical History: Diagnosis [...] file Gets together: Not on file Attends roman catholic service: Not on file Active member of [...] Feng CNP blood-glucose meter (ONETOUCH VERIO SYSTEM) [facility] Use as instructed. 10/18/17 Bere Feng CNP carBAMazepine (TEGRETOL) 200 mg tablet Take 200 mg by mouth at bedtime. Historical Provider, carvedilol (COREG) 25 MG tablet Take 2 tablets (50 mg total) by mouth 2 times a day with meals. 10/26/17 Bere Feng CNP cloNIDine HCl (CATAPRES) 0.1 MG tablet Take 1 tablet (0.1 mg total) by mouth if needed. Patient taking differently: Take 0.1 mg by mouth 2 times a day. 01/17/19 Niurka Valles MD doxazosin (CARDURA) 8 MG tablet 8 mg 2 times a day. 05/12/18 Historical Provider, entecavir (BARACLUDE) 0.5 MG tablet Take 1 tablet (0.5 mg total) by mouth every 72 hours. 07/01/19 Malinda Rhodes MD ergocalciferol (VITAMIN D2) 50,000 unit capsule Take 50,000 Units by mouth once a week. Historical Provider, famotidine (PEPCID) 20 MG tablet Take 20 mg by mouth daily. Historical Provider, fluticasone propionate (FLONASE) 50 mcg/actuation nasal spray use 2 spray(s) in each nostril daily 12/07/18 Historical ProviderMD gabapentin (NEURONTIN) 100 MG capsule Take 4 [...] and at bedtime. 10/18/17 Bere Feng CNP mycophenolate (CELLCEPT) 250 mg capsule Take 3 capsules (750 mg total) by mouth 2 times a day. 06/25/19 Arnold Ordoñez MD NIFEdipine (PROCARDIA-XL) 90 MG (OSM) 24 hr tablet Take 90 mg by mouth 2 times a day. 04/23/18 Historical Provider, ondansetron (ZOFRAN-ODT) 4 MG disintegrating tablet every 8 hours as needed. 04/11/18 Historical Provider, pen needle, diabetic 32 gauge x 5/32 Ndle Use as directed to inject insulin 4 times daily. 10/16/17 Bere Feng CNP pen needle, diabetic 32 gauge x 5/32 Ndle For use with insulin pen. Use as instructed. 10/16/17 Bere Feng CNP polyethylene glycol (MIRALAX) 17 gram packet Take 17 g by mouth 2 times a day as needed. 01/17/19 Niurka Valles MD sodium bicarbonate 650 MG tablet Take 2 tablets (1,300 mg total) by mouth 2 times a day. 07/01/19 Malinda Rhodes MD tacrolimus ER, 24 HR, (ENVARSUS XR) 1 mg Tb24 Take 3 tablets (3 mg total) by mouth daily. Per Hepatology recommendations 07/01/19 Malinda Rhodes MD torsemide (DEMADEX) 20 MG tablet Take 1 tablet (20 mg total) by mouth daily. 03/01/19 Aris Moctezuma MD Inpatient Meds: Scheduled: Continuous: PRN: Vital Signs Temp: [97.8 ??F (36.6 ??C)-102.8 ??F (39.3 ??C)] 101 ??F (38.3 ??C) Heart Rate: [88-97] 97 Resp: [16-18] 18 BP: (127-150)/(62-82) 150/82 Intake/Output Summary (Last 24 hours) at 07/20/2019 0517 Last data filed at 07/20/2019 0422 Gross per 24 hour Intake 120 ml Output 200 ml Net -80 ml Physical Exam Vital signs reviewed. General: Well appearing, obese age appropriate male, in no acute distress JOLANTA: Normocephalic, atraumatic, PERRL, EOMs intact Neck: No JVD, trachea midline Heart: Regular rate and rhythm, no murmurs, rubs, gallops Lungs: Clear to auscultation bilaterally, no wheezes or rales, normal work of breathing Chest: quarter-sized bruise on L side of chest wall Back: Symmetric, no CVA tenderness Abdomen: Soft, obese, non-tender, non-distended, + liver transplant scar Extremities: No clubbing, 2+ pitting edema to mid calf bilaterally, no asterixis Skin: No rashes, no wounds, no jaundice Neuro: AOx4, moves all 4 extremities, follows commands Psych: Alert and appropriate, normal affect Laboratory Data Lab 07/19/19235607/18/19 0940 WBC 7.1 4.37 HEMOGLOBIN 7.4* 12.8* HEMATOCRIT 23.0* 41 MEAN CORPUSCULAR VOLUME 84.3 85.1 PLATELETS 149 134 Lab 07/19/197 07/18/19 0940 SODIUM 134 141 POTASSIUM 5.4* 4.5 CHLORIDE 101 106 CO2 19* 18 BUN 58* 20 CREATININE 7.45* 1.75* GLUCOSE 270* 169 Lab 07/19/19 2357 07/18/19 0940 CALCIUM 7.3* 9.2 MAGNESIUM 1.7 -- PHOSPHORUS 4.9* 2.9 Lab 07/19/192356 INR 1.1 PROTHROMBIN TIME 15.0 Lab 07/19/19 2357 07/18/19 0940 ALT 6* 18 AST 12* 20 ALK PHOS 98 77 BILIRUBIN TOTAL 0.3 0.28 BILIRUBIN DIRECT 0.05 -- ALBUMIN 3.3* 3.3* 4.2 Invalid input(s): WBCCAST, GRANCAST No results found for: NTPROBNP Lab Results Component Value Date TSH 2.02 12/20/2017 FREET4 1.03 10/20/2017 Lab 07/19/19 2345 POC GLU MONITORING DEVICE 272* Diagnostic Studies X-ray Portable Chest (Results Pending) Assessment & Plan Leoncio Rollins is a 44 y.o. male being admitted to the hospital for fever and CARMEN. Medical problemsbeing addressed in this encounter include the following: Principal Problem: Kftgi-ce-ndvmlov kidney injury ([facility] Dx) #Fever in immunocompromised patient - pt denies any recent fevers, states he has been 'shaking' recently but think this is due to his tacro dose. States elevated temp at OSH was due to room being too warm. - source unclear, unlikely pulmonary given OSH CXR, will repeat, will repeat blood cx and urine cx,will obtain bedside US to assess for ascites for possible SBP, pt does not have a history of SBP - HDS on arrival, noted to be febrile to 102 overnight - WBC 7, lactate 0.7 on admission to [facility] - UA at OSH + for blood but not concerning for infection, no sx - urine cx, blood cx - IVF - start cefepime and pulse-dose vanc - pharmacy notified - holding immunosuppression - discussed with transplant hepatology ?? #Acute on chronic kidney injury Follows nephrology who recommended biopsy in past. No indication for urgent dialysis (no acidosis, hyperkalemia, uremia). - Baseline Cr 4-5, 7 on admission, K 5.4 on admission, BUN 58 - Consult transplant nephrology - hold home torsemide - gentle IVF -strict I/o, urine lytes ?? #Non-anion AG metabolic acidosis likely due to acute kidney injury - bicarb 19 on admission to [facility] - continue sodium bicarb as patient takes at home -trend renal panel ?? # Acute on chronic anemia - pt recently admitted in Patient received 1 unit PRBCs on 06/29. Hemolysis labs negative at thattime.?? 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 #Hypertension - continue on coreg, clonidine, nifedipine, and terazosin - holding torsemide ?? #Neuropathic pain -gabapentin 400mg nightly PRN # RLS - continue carbamazepine Nutrition: Diet Orders Diet renal starting at 07/19 7004 Code Status: Full Code Signed: ALICIA CERVANTES DO 07/20/2019, 5:17 AM Cosigned by Teri Choi MD at 07/20/2019 12:16 PM EST Associated attestation - Teri Choi MD - 07/20/2019 12:16 PM EST I saw and examined the patient on 07/20/19, and discussed the case with the resident and agree withthe findings and plan as documented in the resident???s note. Briefly, Mr. Rollins is a 44 yo gentleman with h/o KIM cirrhosis s/p OLTx in 2018, now admitted with fever and acute on chronic renal disease. - Infection work up pending. Agree with broad spectrum abx for now. -Consult ID. -Consult renal re: acute on chr kidney disease. - Hb down to 6.7 on admission- prior Hb of 9.5. No evidence of GIB. Low threshold to pursue CT scan to r/o retroperitoneal hematoma (patient admitted s/p fall) 2 units PRBCs to be transfused today. Follow H/H -Check hemolysis panel. -check tacro levels. Teri Choi MD Online Marketing Manager Division of Digestive Diseases documented in this encounter Procedure Notes * Arnold Ordoñez MD - 07/24/2019 1:00 PM EST [id number] Procedure Date: 07/24/2019 1:00 PM Patient Name: Leoncio Rollins Date of : 1975 Admit Type: Inpatient Age: 44 Gender: Male Note Status: Finalized Attending MD: ARNOLD ORDOÑEZ MD Procedure: Upper GI endoscopy Indications: Odynophagia Providers: ARNOLD ORDOÑEZ MD, Jose Pineda (Fellow) Referring MD: Medicines: Monitored Anesthesia Care [...] patient tolerated the procedure well. Findings: A single 5 mm mucosal nodule with a localized distribution was found in the lower third of the esophagus, 36 cm from the incisors. Biopsies were taken with a cold forceps for histology. Estimated blood loss was minimal. A small hiatal hernia was present. Localized mildly erythematous mucosa without bleeding was found at the pylorus. The examined duodenum was normal. The exam was otherwise without abnormality. Impression: - Mucosal nodule found in the esophagus. Biopsied. - Small hiatal hernia. - Erythematous mucosa in the pylorus. - Normal examined duodenum. - The examination was otherwise normal. Recommendation: - Return patient to hospital [facility] for ongoing care. - Resume previous diet. - Continue present medications. - Await pathology results. Procedure Code(s): --- Professional --- 03550, GC, Esophagogastroduodenoscopy, flexible, transoral; with biopsy, single or multiple Diagnosis Code(s): --- Professional --- K22.8, Other specified diseases of esophagus K44.9, Diaphragmatic hernia without obstruction or gangrene K31.89, Other diseases of stomach and duodenum R13.10, Dysphagia, unspecified CPT copyright 2016 [employer]. All rights reserved. The codes documented in this report are preliminary and upon pipe jeeper review may be revised to meet current compliance requirements. Attending Participation: I was present for the entire viewing portion, including introduction and removal of the scope. Arnold Ordoñez MD ARNOLD ORDOÑEZ MD 08/05/2019 11:51:43 PM This report has been signed electronically.MD MICHELLE COFFAMNDEL PINEDA Josedel Pineda, 07/24/2019 1:19:16 PM Total Procedure Duration Time 0 hours 3 minutes 35 seconds Scope In: 1:09:18 PM Scope Out: 1:12:[address] [place] [id number] * NAVNEET Collins - 07/23/2019 10:35 AM EST Interventional Radiology Post-Procedure Note Date: 07/23/2019 Patient: Leoncio Rollins : 1975 IR Procedure(s) Performed: Tunneled Hemodialysis catheter placement via right internal jugular Operators: NAVNEET COLLINS, Pre-operative diagnosis: 1. Hemodialysis Post-operative diagnosis: Same Intra-procedural Medications: Lidocaine 1 % Ancef 2 gram IV Findings: Successful Tunneled hemodialysis catheter placement via right internal jugular under fluoroscopy and ultrasound guidance Specimens removed: None Estimated Blood Loss: Minimal (less than 15mL) Complications: None Recommendations/Follow-up: 1. TDC is ready for immediate use 2. Re consult when ready for removal. Please refer to full dictated Interventional Radiology report for details of findings/procedures, which can be located in EPIC Procedures (or [facility] Imaging) Tabs. 07/23/2019, 10:36 AM. Please call with any questions. NAVNEET COLLINS Interventional Radiology 07/23/2019, 10:36 AM [facility] IR Desk: [facility] IR: IR On-Call (after-hours, nights, wkds, holidays): Cosigned by Liberty Winchester MD at 07/23/2019 10:13 PM EST Associated attestation - Liberty Winchester MD - 07/23/2019 10:13 PM EST I was available for consultation for the advanced practice provider (ANUSHA) and was not asked by the ANUSHA to see or evaluate this patient. The ANUSHA evaluated the patient and provided care for this patient per the ANUSHA???s hospital privileges. Liberty Winchester MD Interventional Radiology 07/23/2019, 10:13 PM [facility] IR Desk: [facility] IR: IR On-Call (after-hours, nights, wkds, holidays): documented in this encounter Consult Notes * RADHA Mead, CUSTOMER CARE COORDINATOR - 07/23/2019 3:28 PM EST [facility] Social Work Psychosocial Assessment Leoncio Rollins [id number] 44 y.o. male White or Marital Status: HYPERTENSION / S/P LIVER TXPLANT Referred by: GI Service Referred Reason: Psychosocial/Discharge Planning History Past Medical History: Diagnosis Date ??? Acute pancreatitis ??? Ascites ??? Diabetes mellitus (CMS Dx) ??? Esophageal varices with bleeding (CMS Dx) ??? GERD (gastroesophageal reflux disease) ??? Hepatic encephalopathy (CMS Dx) ??? Hypertension ??? 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 Vitamin D deficiency Social History Substance and Sexual Activity Drug Use No Social History Substance and Sexual Activity Alcohol Use No Mental Health History: None reported. Mental Status Current Mental Status: Awake, Oriented to Person, Oriented to Place Mental Status Prior to Admission: Unable to Assess Activities of Daily Living: Independent Current Living Arrangements Current Living Arrangements: With Family Type of Living Arrangement: Home/Apartment One Story or Two (check all that apply): One Story Support Systems Next of Kin/Motor Analyst: Kym Rollins Next of Kin Relationship: Spouse Next of Kin Kimberly Rollins, mother, Community Resources Used Prior to Admission: No Cultural/Spiritual/Language Barriers Baptism/Cultural Factors: Adventism Other Pertinent Data Instrument Lens Generator for Mental Health IssuesPrior to Admission: No Durable Medical Equipment Prior to Admission: Yes Durable Medical Type of Equipment: Rolling Walker Name/number of PCP: Edgar Fournier [phone] Pharmacy: [facility] [phone] Assessment/Plan Per H&P documentation: Leoncio Rollins is a 44 y.o. male with a history of JC on CPAP, CKD, KIM Cirrhosis with EV s/p??liver transplant??09/2017 who presents as direct admit from OSH due to concern for infection and CARMEN in setting of previous transplant on immunosuppression. SW met with patient at bedside to complete psychosocial assessment. Spouse also present at bedside.SW introduced self, explained role, and verified demographic information. Patient is a 44 year old male who currently resides with his spouse at their home located in [place], [place]. Per chartpatient is disabled due to his medical condition. Patient reports his primary support system include s his spouse, Kym [phone], and mother, Kimberly [phone]. Patient has three children. SW discussed dialysis set-up with patient and his spouse. Patient would like to try to obtain a chair at [facility] in [place], [place] , F: [phone]. [facility] he would like to look at facilities in [place], [place]; [facility] or [facility]. Patient reports no current or past history of suicidal/homicidal ideation. Patient denies any history of mental health diagnoses and/or concerns. Patient reports no history of alcohol and/or illicit drug abuse. Per chart, patient has previously been active with [facility] [phone]. No previous placements at alf facility and/or inpatient rehab program. Per chart patient was also set up for oxygen services post-transplant through [facility]. Patient has utilized a rolling walker in the past. Patient has therapy recs for outpatient PT, will have team write a script upon discharge. SW contacted [facility] and staff stated they do have chair times available for a TTS schedule. SWsent referral via fax to [facility]; [phone], F: [phone]. Willfollow-up accordingly. SW's contact information provided to patient. Patient anticipated for discharge in the next severaldays. Pt to have first dialysis session today and continuing treatment of infection. Spouse to provide transportation home upon discharge. SW will continue to follow patient, communicate with GI team, and assist with discharge planning. Patient/Family aware and taking part in the discharge plan. Patient and family were offered a post-acute provider list as applicable to the discharge plan and insurance provider. Patient and family were given the freedom to choose providers and financial interest(s) were disclosed as appropriate. This assessment has been reviewed with the multi-disciplinary team. RADHA Mead, KIM Inpatient Political Researcher GI Service [phone] * Nadya Tomas RD - 07/23/2019 11:30 AM ESTAssociated Order(s): IP CONSULT TO NUTRITION SERVICES Received nutrition consult for Renal diet education. Visited patient this morning, family present. Provided written and verbal Renal diet recommendations including sodium, phosphorus, and potassium limitations. Answered questions and made patient and family aware of RD availability for any further q uestions/concerns. Nadya Tomas RD, LD Clinical Dietitian Pager#[phone] * Eris Nguyen MD - 07/22/2019 2:18 PM ESTAssociated Order(s): IP CONSULT TO LIVER GI/HEPATOLOGY INITIAL CONSULT NOTE REASON FOR CONSULT: Management of immunosuppression in the setting of infection HPI: 44 y.o. male with a history of KIM Cirrhosis s/p??liver transplant??09/2017, DMII, HTN, JC on CPAP, and CKD who presented for evaluation of altered mental status, fall, and sore throat. He reports that he started having a sore throat a few days ago, reporting severe pain on swallowing solids or liquids. He also had chills and a fever. He reports that he has noted decreased urine output as well for the past few days, and that today, he has not made any urine at all. He was on his way to a [place] and reports that as he got out of his truck, he slipped and fell and then could not get up. He remembers being afraid of everyone around him, worried that they might [place] him, and he reports he beganswinging with his arms and legs. He denies drug or alcohol abuse, and reports compliance with his tacrolimus and mycophenolate at home. RELEVANT LIVER HISTORY: He received a [facility] high risk donor, who was HBV ALEXANDRA +, HCV Ab+, ALEXANDRA negative and therefore will be on lifelong entecavir. Post-operative course was complicated by altered mental status and severe tremors thought to be related to tacrolimus toxicity, as well as hypoxia. REVIEW OF SYSTEMS: General:+weakness ENT: + severe sore throat. Allergy and Immunology: negative for hives, nasal congestion or seasonal allergies Hematological and Lymphatic: negative for bleeding problems, blood clots Endocrine: negative for polydipsia/polyuria or temperature intolerance Respiratory: negative for cough, hemoptysis, orthopnea, pleuritic pain, shortness of breath or wheezing Cardiovascular: negative for chest pain, dyspnea on exertion or palpitations Gastrointestinal: negative for hematemesis, nausea/vomiting, altered bowel habits or swallowing difficulty/pain. Genito-Urinary: +oliguria Musculoskeletal: negative for joint pain Neurological: negative for dizziness, gait disturbance, seizures [...] cloNIDine HCl 0.1 mg Oral BID ??? [START ON 07/27/2019] [...] NPH 6 Units Subcutaneous Nightly (2099) ??? lidocaine 1 patch Transdermal Q24H ??? NIFEdipine 90 mg Oral BID ??? sodium bicarbonate 1,300 mg Oral BID ??? tacrolimus ER (24 HR) 3 mg Oral DAILY 0700 ??? terazosin 10 mg Oral Nightly (2099) Continuous Infusions: PRN Meds:.acetaminophen, benzocaine-menthol, dextrose 10% in water OR dextrose 10% in water, gabapentin, glucose, melatonin, polyethylene glycol, traMADol HOME MEDICATIONS: No current facility-administered medications on file prior to encounter. Current Outpatient Medications on File Prior to Encounter Medication Sig Dispense Refill ??? aspirin 81 MG chewable tablet Chew 1 tablet (81 mg total) by mouth daily with breakfast. 30 tablet 5 ??? blood sugar diagnostic [facility] Use to test blood sugar up to 4 times a day. Diagnosis for use: E 9.65. For use with One Touch Verio meters. 150 strip 5 ??? blood-glucose meter (ONETOUCH VERIO SYSTEM) [facility] Use as instructed. 1 each 0 ??? carBAMazepine (TEGRETOL) 200 mg tablet Take 200 mg by mouth at bedtime. ??? carvedilol (COREG) 25 MG tablet Take 2 tablets (50 mg total) by mouth 2 times a day with meals.120 tablet 5 ??? cloNIDine HCl (CATAPRES) 0.1 MG tablet Take 1 tablet (0.1 mg total) by mouth if needed. (Patient taking differently: Take 0.1 mg by mouth 2 times a day. ) 60 tablet 0 ??? doxazosin (CARDURA) 8 MG tablet 8 mg 2 times a day. ??? entecavir (BARACLUDE) 0.5 MG tablet Take 1 tablet (0.5 mg total) by mouth every 72 hours. 15 tablet 11 ??? ergocalciferol (VITAMIN D2) 50,000 unit capsule [...] the PM. 15 mL 5 ??? lancets (Parabel LANCETS) 33 gauge Misc Use 1 strip as directed 4 times daily before meals and at bedtime. 150 each 5 ??? mycophenolate (CELLCEPT) 250 mg capsule Take 3 capsules (750 mg total) by mouth 2 times a day. 180 capsule 5 ??? NIFEdipine (PROCARDIA-XL) 90 MG (OSM) 24 [...] day as needed. 100 packet 0 ??? sodium bicarbonate 650 MG tablet Take 2 tablets (1,300 mg total) by mouth 2 times a day. 120 tablet 0 ??? tacrolimus ER, 24 HR, (ENVARSUS XR) 1 mg Tb24 Take 2 tablets (2 mg total) by mouth daily. Per Hepatology recommendations 60 tablet 5 ??? torsemide (DEMADEX) 20 MG tablet Take 1 tablet (20 mg total) by mouth daily. 30 tablet 5 ALLERGIES: Allergies Allergen Reactions ??? Codeine Sulfate Hyper ??? Codeine Other (See Comments) Becomes hyper SOCIAL HISTORY: Social History Substance and Sexual Activity Alcohol Use No Social History Substance and Sexual Activity Drug Use No Social History Tobacco Use Smoking Status Never Smoker Smokeless Tobacco Never Used FAMILY HISTORY: Family History Problem Relation Age of Onset ??? Diabetes Sister VITALS: Vitals: 07/22/19 1100 BP: 108/73 Pulse: 73 Resp: 16 Temp: 98.2 ??F (36.8 ??C) SpO2: 91% PHYSICAL EXAM: GEN: No acute distress. Alert and oriented x3. HEENT: PERRLA. Atraumatic. Normocephalic. Moist mucous membranes. Exudates and erythema in the posterior pharynx. Tender lymph node in the left submandibular region. CARD: RRR, no murmurs, rubs, or gallops. RESP: CTAB, no wheezes or crackles. ABD: Obese, NTND, soft, BS+, no organomegaly. EXT: trace peripheral edema. No cyanosis. No obvious deformity. DERM: No rash or bruising. Skin intact. Normal color, texture, and turgor. Warm and dry. NEURO: CN2-12 grossly intact. No focal deficits PSYCH: tangential LABS: Lab Results Component Value Date WBC 5.1 07/22/2019 RBC 2.93 (L) 07/22/2019 HGB 7.9 (L) 07/22/2019 HCT 24.3 (L) 07/22/2019 MCV 82.9 07/22/2019 MCH 27.0 07/22/2019 MCHC 32.6 07/22/2019 RDW 14.2 07/22/2019 PLT 133 (L) 07/22/2019 Lab Results Component Value Date GLUCOSE 191 (H) 07/22/2019 BUN 67 (H) 07/22/2019 CO2 21 07/22/2019 CREATININE 9.07 (H) 07/22/2019 K 4.6 07/22/2019 NA 134 07/22/2019 CL 99 07/22/2019 CALCIUM 7.3 (L) 07/22/2019 Lab Results Component Value Date MG 1.9 07/22/2019 Lab Results Component Value Date PHOS 5.9 (H) 07/22/2019 Lab Results Component Value Date INR 1.1 07/19/2019 PROTIME 15.0 07/19/2019 Lab Results Component Value Date ALT 10 07/22/2019 AST 11 (L) 07/22/2019 ALKPHOS 81 07/22/2019 BILITOT 0.3 07/22/2019 BILIDIRECT 0.04 07/22/2019 Lab Results Component Value Date HGB 7.9 (L) 07/22/2019 HGB 7.5 (L) 07/21/2019 HGB 7.3 (L) 07/21/2019 HGB 6.7 (L) 07/20/2019 HGB 7.4 (L) 07/19/2019 HGB 12.8 (A) 07/18/2019 HGB 9.4 (A) 07/09/2019 HGB 7.1 (L) 07/01/2019 HGB 7.6 (L) 06/30/2019 HGB 6.8 (L) 06/29/2019 IMAGING: EXAM: CT ABDOMEN AND PELVIS WO IV CONTRAST ?? INDICATION: recent fall with downtrending hgb, concern for retroperitoneal bleed, also has CARMEN of unknown origin, need to image kidneys due to concern for obstruction; ?? TECHNIQUE: CT of the abdomen and pelvis was performed without intravenous contrast. Axial images were obtained with coronal and sagittal reconstructions performed at the scanner. ?? CONTRAST: None ?? FIELD OF VIEW: 44 cm ?? DATE: July 21, 2019 ?? COMPARISON: 10/20/2017 ?? FINDINGS: ?? Lower Chest: Minimal bibasilar atelectasis. ?? Liver: Postsurgical changes of liver transplant. ?? Biliary Tree: No intra or extra-hepatic biliary ductal dilatation. The gallbladder is surgically absent. ?? Spleen: Not enlarged. Granulomas calcifications are noted. ?? Pancreas: Normal ?? Adrenal Glands: Normal ?? Kidneys/Ureters/Bladder: No hydronephrosis or hydroureter. The urinary bladder is unremarkable. ?? Gastrointestinal Tract: Small sliding-type hiatal hernia is noted. Gastric, small bowel, colonic caliber and wall thickness are within normal limits. ?? Lymphatics: No abdominal or pelvic lymph nodes are enlarged by size criteria. ?? Vasculature: Unremarkable. ?? Peritoneum/Retroperitoneum: No free fluid, free air, or loculated fluid collections. ?? Abdominal Wall/Soft Tissues: Right fat-containing inguinal hernia. Large fat- containing supraumbilical hernia with neck measuring 5.7 cm. There is extensive fat stranding along the left lateral abdominal wall. Mild anasarca. ?? Pelvic Organs: The prostate and seminal vesicles are normal in contour. ?? Osseous Structures: No acute osseous abnormalities or suspicious osseous lesions. ?? IMPRESSION: ?? No acute findings in the abdomen/pelvis. ?? ASSESSMENT AND PLAN: 44 yo male with a history of KIM Cirrhosis s/p??liver transplant??09/2017, DMII, HTN, JC on CPAP, and CKD who presented as a transfer from OSH for management of bacteremia and acute on chronic renalfailure approaching end stage. His blood cultures from the OSH reportedly grew group C Strep and hehas symptoms and exam findings of pharyngitis, likely the source of bacteremia in this immunosuppres sed patient. Plan is for tunneled dialysis catheter placement by IR and dialysis soon per renal. Hepatology is consulted for management of his immunosuppression. -Agree with holding mycophenolate. Can restart on discharge assuming his infection has been treated. -Discontinue home tacrolimus ER. Start cyclosporine 50mg BID. -Check cyclosporine trough level once 4 doses have been given. -Continue entecavir, dosing per pharmacy in the setting of acute renal failure with plans to initiate dialysis soon Patient seen and discussed with attending physician, Dr. Ordoñez. Eris Nguyen MD GI/Hepatology Fellow Cosigned by Arnold Ordoñez MD at 07/29/2019 12:30 PM EST Associated attestation - Arnold Ordoñez MD - 07/29/2019 12:30 PM EST I saw and examined the patient. I discussed with the resident or fellow and agree with resident's/fellow's findings and plan as documented in the note. Rakesh Ordoñez MD Transplant Passenger Car Upholsterer Apprentice * NAVNEET Canales - 07/22/2019 11:06 AM EST Interventional Radiology Consult Note Date: 07/22/2019 Patient: Leoncio Rollins : 1975 Primary Care Provider: Edgar Fournier MD Reason for Consult: Venous access IR Procedure Request Received and Reviewed. HPI: Leoncio Rollins is a 44 y.o. male with history cirrhosos s/p OLT with fevers and CARMEN on CKD. 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 History of bacteremia, culture negative since 07/20/2019. History: Past Medical History: Diagnosis Date ??? [...] Age of Onset ??? Diabetes Sister Social Hx: Social History Tobacco Use Smoking Status Never Smoker Smokeless Tobacco Never Used Social History Substance and Sexual Activity Drug Use No Social History Substance and Sexual Activity Alcohol Use No Allergies: Allergies Allergen Reactions ??? Codeine Sulfate Hyper ??? Codeine Other (See Comments) Becomes hyper Home Medications: Prior to Admission medications Medication aspirin 81 MG chewable tablet blood sugar diagnostic Strp blood-glucose meter ([employer] VERIO SYSTEM) Misc carBAMazepine (TEGRETOL) 200 mg tablet carvedilol (COREG) 25 MG tablet cloNIDine HCl (CATAPRES) 0.1 MG tablet doxazosin (CARDURA) 8 MG tablet entecavir (BARACLUDE) 0.5 MG tablet ergocalciferol (VITAMIN D2) 50,000 unit capsule famotidine (PEPCID) 20 MG tablet fluticasone propionate (FLONASE) 50 mcg/actuation nasal spray gabapentin (NEURONTIN) 100 MG capsule insulin glulisine U-100 (APIDRA U-100 INSULIN) 100 unit/mL injection insulin NPH isoph U-100 human (HUMULIN N NPH INSULIN KWIKPEN) 100 unit/mL (3 mL) InPn lancets ([employer] DELICA LANCETS) 33 gauge Misc mycophenolate (CELLCEPT) 250 mg capsule NIFEdipine (PROCARDIA-XL) 90 MG (OSM) 24 hr tablet ondansetron (ZOFRAN-ODT) 4 MG disintegrating tablet pen needle, diabetic 32 gauge x 5/32 Ndle pen needle, diabetic 32 gauge x 5/32 Ndle polyethylene glycol (MIRALAX) 17 gram packet sodium bicarbonate 650 MG tablet tacrolimus ER, 24 HR, (ENVARSUS XR) 1 mg Tb24 torsemide (DEMADEX) 20 MG tablet Current Medications: Scheduled Medications: aspirin, 81 mg, Daily with breakfast carBAMazepine, 200 mg, Nightly (2099) carvedilol, 50 mg, BID WC cefTRIAXone (ROCEPHIN) IVPB, 2 g, Q24H cloNIDine HCl, 0.1 mg, BID [START ON 07/27/2019] entecavir, 0.5 mg, Q7 Days ergocalciferol, 50,000 Units, Weekly famotidine, 20 mg, Daily 0900 insulin lispro, 0-4 Units, Nightly (2100) insulin lispro, 0-5 Units, TID AC insulin lispro, 3 Units, TID AC insulin NPH, 18 Units, Daily 0900 insulin NPH, 6 Units, Nightly (2100) lidocaine, 1 patch, Q24H NIFEdipine, 90 mg, BID sodium bicarbonate, 1,300 mg, BID tacrolimus ER (24 HR), 3 mg, DAILY 0700 terazosin, 10 mg, Nightly (2100) IV Meds: PRN Medications: acetaminophen, 650 mg, Q6H PRN benzocaine-menthol, 1 lozenge, Q1H PRN dextrose 10% in water, 12.5 g, Q15 Min PRN Or dextrose 10% in water, 25 g, Q15 Min PRN gabapentin, 400 mg, Nightly PRN glucose, 12 g, Q15 Min PRN melatonin, 3 mg, Nightly PRN polyethylene glycol, 17 g, BID PRN traMADol, 50 mg, Q12H PRN Vitals: Vitals: 07/22/19 0002 07/22/19 0024 07/22/19 0502 07/22/19 0922 BP: 152/72 153/79 132/68 BP Location: Right arm Right arm Right arm Patient Position: Lying Lying Lying Pulse: 85 87 65 Resp: 16 16 16 Temp: 99 ??F (37.2 ??C) 98.9 ??F (37.2 ??C) 98.5 ??F (36.9 ??C) TempSrc: Oral Oral Oral SpO2: 93% 92% 93% 90% Weight: (!) 301 lb 14.4 oz (136.9 kg) Height: Labs: Recent Labs 07/21/19 0133 07/21/19 1047 07/22/19 0616 WBC 5.7 5.9 5.1 HGB 7.3* 7.5* 7.9* HCT 22.6* 23.5* 24.3* MCV 84.1 83.6 82.9 PLT 131* 131* 133* Recent Labs 07/20/19 0628 07/21/19 0133 07/21/19 1047 07/22/19 0616 NA 132* 135 134 134 K 4.9 4.9 5.2 4.6 CL 101 101 100 99 CO2 19* 21 21 21 PHOS 4.1 5.6* -- 5.9* BUN 57* 61* 63* 67* CREATININE 7.70* 8.09* 8.65* 9.07* CALCIUM 7.4* 7.4* 7.6* 7.3* Recent Labs 07/19/19235607/20/19 0628 07/22/19 0616 BILITOT 0.3 0.3 0.3 AST 12* 15 11* ALT 6* 8 10 ALKPHOS 98 87 81 Recent Labs 07/19/19235607/20/1928 07/21/19 0133 07/22/19 0616 ALBUMIN 3.3* 3.3* 3.2* 3.2* 3.1* 3.0* 3.0* BILIDIRECT 0.05 0.07 -- 0.04 Recent Labs 07/19/19 2357 INR 1.1 PROTIME 15.0 Imaging: No results found for this or any previous visit (from the past [address] Procedure(s) Impressions: CT Abdomen and Pelvis WO IV contrast 07/21/2019 Impression IMPRESSION: No acute findings in the abdomen/pelvis. Approved by Leeroy Jo MD on 07/21/2019 10:26 AM EST I have personally reviewed the images and I agree with this report. Report Verified by: Manolo Rosenthal MD at 07/21/2019 10:[address] Head WO contrast 07/21/2019 Impression IMPRESSION: 1. No acute intracranial abnormality. Report Verified by: Eleanor Mtz at 07/21/2019 9:53 AM EST Pre-Sedation Evaluation [facility] PRE SEDATION EVAL -- Will assess just prior to procedure Medical Decision Making Plan: 1. Placement of TDC, tomorrow 07/23/19. 2. Sedation Plan/Type: Local/Subcutaneous Lidocaine 1% and Moderate Sedation/Intravenous Fentanyl & Versed 3. NPO after midnight. Patient may have sips of water with morning medication. 4. If contrast allergy, please pre-medicate with Prednisone 50mg PO at 13 hour, 7 hours, and 1 hourbefore procedure. Benadryl 50mg PO 1 hour before procedure. 5. Hold SQ heparin from midnight or Lovenox 24 hrs. Consent: Consent pending Please call with any questions. NAVNEET CANALES Interventional Radiology 07/22/2019, 11:06 AM [facility] IR Desk: [facility] IR: IR On-Call (after-hours, nights, wkds, holidays): * Nadya Devries MD - 07/20/2019 7:40 PM ESTAssociated Order(s): INPATIENT CONSULT TO TRANSPLANT INFECTIOUS DISEASES [facility] DEPARTMENT OF INFECTIOUS DISEASE INITIAL NOTE Referring Physician: Marcelino Fox MD Consult Attending: Nadya Devries MD Patient: Leoncio Rollins CSN: [id number] Reason for Consult: Group C Strep bacteremia, fever History of Present Illness Leoncio Rollins is a 44 y.o. male on hospital day 1. He has HTN, DM2, and KIM cirrhosis s/p OLT in Sep 2017. He take cellcept + tacro + entecavir (donor was Hep B+). He has CKD with proteinuria, needs to lose weight to be listed for renal xplant. He had loose BM's with N&V in mid-Jun, was afeb,rc'd no abx, felt to be viral illness (grandson had similar illness), was hosp here for IVF, req'd blood xfusion. Home Jun and felt back to normal. ~5 days ago he noted sore throat and fell on his L side/abd; next day had runny nose, sinus congestion; next day fell on his butt. Remained off balance but denies fever, malaise. Went to ED in [place], [place] yesterday c/o weakness, found to have fever 102 but chest/abd CT's said to be unremarkable.Given ceftriaxone empirically. Both sets of blood cultures grew Group C Strep. No urine cx sent. They decreased his immunosuppression and transferred him here last night for further eval. Switched tocefepime + vanco. Here he seems slightly confused, acc to his , and he continues to deny fever or malaise. Still has min sore throat. H/H down since admission, he just rc'd a unit of pRBC and is g oing to have a repeat abd CT tonight. 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 denies use of raw milk or raw cheeses by the family. Past Medical History Past Medical History: Diagnosis [...] file Gets together: Not on file Attends roman catholic service: Not on file Active member of [...] Refills: 5 blood-glucose meter (ONETOUCH VERIO SYSTEM) [facility] Use as instructed. Qty: 1 each, Refills: 0 carBAMazepine (TEGRETOL) 200 mg tablet Take 200 mg by mouth at bedtime. carvedilol (COREG) 25 MG tablet Take 2 tablets (50 mg total) by mouth 2 times a day with meals. Qty: 120 tablet, Refills: 5 cloNIDine HCl (CATAPRES) 0.1 MG tablet Take 1 tablet (0.1 mg total) by mouth if needed. Qty: 60 tablet, Refills: 0 doxazosin (CARDURA) 8 MG tablet 8 mg 2 times a day. entecavir (BARACLUDE) 0.5 MG tablet Take 1 tablet (0.5 mg total) by mouth every 72 hours. Qty: 15 tablet, Refills: 11 Associated Diagnoses: S/P liver transplant ([facility] Dx); Gastroesophageal reflux disease, esophagitis presence not specified; CKD (chronic kidney disease) stage 3, GFR 30-59 ml/min ([facility] Dx); Immunosuppression ([facility] Dx) ergocalciferol (VITAMIN D2) 50,000 unit capsule Take 50,000 Units by mouth once a week. famotidine (PEPCID) 20 MG tablet Take 20 mg by mouth daily. fluticasone propionate (FLONASE) 50 mcg/actuation nasal spray use 2 spray(s) in each nostril daily Refills: 11 gabapentin (NEURONTIN) 100 MG capsule Take 4 capsules (400 mg total) by mouth daily. Qty: 180 capsule, Refills: 0 Associated Diagnoses: Neuropathy insulin glulisine U-100 (APIDRA U-100 INSULIN) 100 unit/mL injection Inject 5 Units subcutaneously 3 times a day with meals. Qty: 10 mL, Refills: 0 insulin NPH isoph U-100 human (HUMULIN N NPH INSULIN KWIKPEN) 100 unit/mL (3 mL) InPn Inject subcutaneously 20 units in the AM and 8 units in the PM. Qty: 15 mL, Refills: 5 Associated Diagnoses: S/P liver transplant (CMS Dx); Hyperglycemia lancets (ONETOUCH DELICA LANCETS) 33 gauge Misc Use 1 strip as directed 4 times daily before meals and at bedtime. Qty: 150 each, Refills: 5 mycophenolate (CELLCEPT) 250 mg capsule Take 3 capsules (750 mg total) by mouth 2 times a day. Qty: 180 capsule, Refills: 5 Associated Diagnoses: S/P liver transplant (CMS Dx); Immunosuppression ([facility] Dx) NIFEdipine (PROCARDIA-XL) 90 MG (OSM) 24 hr tablet Take 90 mg by mouth 2 times a day. ondansetron (ZOFRAN-ODT) 4 MG disintegrating tablet every 8 hours as needed. !! pen needle, diabetic 32 gauge x 5/32 Ndle Use as directed to inject insulin 4 times daily. Qty: 150 each, Refills: 5 !! pen needle, diabetic 32 gauge x 5/32 Ndle For use with insulin pen. Use as instructed. Qty: 150 each, Refills: 5 polyethylene glycol (MIRALAX) 17 gram packet Take 17 g by mouth 2 times a day as needed. Qty: 100 packet, Refills: 0 sodium bicarbonate 650 MG tablet Take 2 tablets (1,300 mg total) by mouth 2 times a day. Qty: 120 tablet, Refills: 0 tacrolimus ER, 24 HR, (ENVARSUS XR) 1 mg Tb24 Take 2 tablets (2 mg total) by mouth daily. Per Hepatology recommendations Qty: 60 tablet, Refills: 5 Associated Diagnoses: S/P liver transplant (CMS Dx); Immunosuppression ([facility] Dx) torsemide (DEMADEX) 20 MG tablet Take 1 tablet (20 mg total) by mouth daily. Qty: 30 tablet, Refills: 5 !! - Potential duplicate medications found. Please discuss with provider. Inpatient Meds: Scheduled: ??? aspirin 81 mg Oral Daily with breakfast ??? carBAMazepine 200 mg Oral Nightly (2100) ??? carvedilol 50 mg Oral BID WC ??? ceFEPime (MAXIPIME) IV extended infusion 1 g Intravenous Q24H ??? cloNIDine HCl 0.1 mg Oral BID ??? ergocalciferol 50,000 Units Oral Weekly ??? famotidine 20 mg Oral Daily 0900 ??? heparin 5,000 Units Subcutaneous Q8H ??? insulin lispro 0-4 Units Subcutaneous Nightly (2099) ??? insulin lispro 0-5 Units Subcutaneous TID AC ??? insulin lispro 3 Units Subcutaneous TID AC ??? insulin NPH 18 Units Subcutaneous Daily 0900 ??? insulin NPH 6 Units Subcutaneous Nightly (2099) ??? lidocaine 1 patch Transdermal Q24H ??? NIFEdipine 90 mg Oral BID ??? sodium bicarbonate 1,300 mg Oral BID ??? terazosin 10 mg Oral Nightly (2099) Continuous: ??? lactated Ringers PRN:acetaminophen, dextrose 10% in water OR dextrose 10% in water, gabapentin, glucose, polyethylene glycol, traMADol, vancomycin intermittent/pulse dosing PLACEHOLDER ORDER Review of Systems Constitutional: positive for fevers, negative for anorexia, chills, fatigue, malaise, night sweats and weight loss Eyes: negative for visual disturbance Ears, nose, mouth, throat, and face: positive for sore throat, negative for earaches Respiratory: positive for cough, sputum and he thinks was post-nasal drip, negative for hemoptysis and pleurisy/chest pain Cardiovascular: negative for chest pain, dyspnea and lower extremity edema Gastrointestinal: negative for abdominal pain, diarrhea, nausea and vomiting Genitourinary:negative for dysuria Musculoskeletal:positive for L flank pain and back pain, he attributes to recent falls, negative for muscle weakness and neck pain Vital Signs Temp: [97.8 ??F (36.6 ??C)-102.8 ??F (39.3 ??C)] 100.4 ??F (38 ??C) Heart Rate: [82-97] 86 Resp: [16-18] 16 BP: (126-155)/(62-85) 126/71 Intake/Output Summary (Last 24 hours) at 07/20/20192051 Last data filed at 07/20/20192037 Gross per 24 hour Intake 761.67 ml Output 550 ml Net 211.67 ml Physical Exam BP 126/71 (BP Location: Right arm, Patient Position: Lying) Pulse 86 Temp 100.4 ??F (38 ??C) (Oral) Resp 16 Ht 5' 7 (1.702 m) Wt (!) 302 lb 4.8 oz (137.1 kg) SpO2 92% BMI 47.35 kg/m?? General appearance: alert, appears stated age, cooperative, distracted, mild distress and morbidly obese Eyes: PERRL, no subconjunctival hems Throat: large tongue, unable to see pharynx Neck: no adenopathy, supple, symmetrical, trachea midline and thyroid not enlarged, symmetric, no tenderness/mass/nodules Lungs: clear to auscultation bilaterally and no respiratory distress Heart: regular rate and rhythm, S1, S2 normal, no murmur, click, rub or gallop Abdomen: soft, non-tender; bowel sounds normal; no masses, no organomegaly and no bruises, mild L flank tenderness, well-healed OLT scars Extremities: no edema, redness or tenderness in the calves or thighs Skin: Skin color, texture, turgor normal. No rashes or lesions Laboratory Data Lab name 07/09/19 [facility] 07/18/19 0940 07/19/19 2357 07/20/19 0628 WBC 2.9 4.37 7.1 5.5 HEMOGLOBIN 9.4* 12.8* 7.4* 6.7* HEMATOCRIT 29.5* 41 23.0* 21.0* MEAN CORPUSCULAR VOLUME 85 85.1 84.3 83.5 PLATELETS 220 134 149 134* Lab name 01/16/19 0427 01/17/19 0532 06/28/19 0427 07/09/19 1037 07/18/19 0940 07/19/19 2357 07/20/19 0628 SODIUM 140 141 < > 140 < > 144 141 134 132* POTASSIUM 5.3 4.8 < > 5.5* < > 5.1 4.5 5.4* 4.9 CHLORIDE 106 105 < > 113* < > 108 106 101 101 CO2 26 26 < > 20* < > 26* 18 19* 19* BUN 42* 45* < > 44* < > 32* 20 58* 57* CREATININE 3.83* 3.98* < > 4.59* < > 4.6* 1.75* 7.45* 7.70* GLUCOSE 152* 90 < > 164* < > 144 169 270* 220* CALCIUM 8.1* 8.1* < > 7.6* < > 7.7* 9.2 7.3* 7.4* MAGNESIUM 1.8 2.0 -- 1.8 -- -- -- 1.7 -- PHOSPHORUS 4.9* 4.8* < > 4.0 < > 4.6 2.9 4.9* 4.1 < > = values in this interval not displayed. Lab name 01/14/19 0731 07/19/192356 INR 1.0 1.1 PROTHROMBIN TIME 13.6 15.0 Lab name 06/27/19 2108 06/29/19 0544 07/09/19 1037 07/18/19 0940 07/19/19 23507/20/19 0628 ALT 10 -- 11 -- 19 18 6* -- AST 10* -- 12* -- 13 20 12* -- ALK PHOS 117 -- 113 -- 165 77 98 -- BILIRUBIN TOTAL 0.2 -- 0.2 -- 0.2 0.28 0.3 -- BILIRUBIN DIRECT 0.04 -- 0.04 -- 0.1 -- 0.05 -- ALBUMIN 3.3* 3.3* < > 3.2* 3.2* < > 3.2 4.2 3.3* 3.3* 3.2* < > = values in this interval not displayed. Lab name 01/12/19 0233 06/28/19 1047 07/20/19 0606 COLOR, URINE Yellow Yellow Yellow CLARITY Clear Clear Cloudy* PROTEIN UA >=300 mg/dL* >=500* >=500* PH UA 6.0 5.0 6.0 SPECIFIC GRAVITY, URINE 1.025 1.015 1.017 GLUCOSE UA 100 mg/dL* 150* 150* KETONES UA Negative Negative Negative BLOOD UA Moderate* Small* Small* LEUKOCYTES UA Negative Negative Negative NITRITE UA Negative Negative Negative BILIRUBIN UA Negative Negative Negative UROBILINOGEN UA 0.2 E.U./dL <2.0 <2.0 RBC UA 5* <1 6* WBC UA 2 2 1 BACTERIA Rare* Rare* Few* Specialty labs: Lab name 06/28/19 0427 06/29/19 0544 07/01/19 0339 07/20/19 0628 TACROLIMUS BLOOD <2.0* <2.0* <2.0* 2.2* Microbiology results: Lab Results Component Value Date ISO1 No Growth To Date 07/20/2019 No results found for: AFBSMEAR, PPD Diagnostic Studies Results for orders placed during the hospital encounter of 07/19/19 X-ray Portable Chest Narrative EXAM: XR PORTABLE CHEST INDICATION: Dyspnea, unspecified TECHNIQUE: Portable AP view of the chest. COMPARISON: 01/12/2019 FINDINGS: Exam was performed on 07/20/2019 4:47 AM EST. Medical Devices: None. Heart and Mediastinum: Cardiomediastinal silhouette is within normal limits. Lungs and Pleura: Lungs are clear with no focal consolidations or pleural effusions. No evidence for pneumothorax. Bones: No acute osseous abnormalities. Assessment & Plan Leoncio Rollins is a 44 y.o. male Medical problems being addressed in this encounter include the following: Active Hospital Problems Diagnosis Date Noted ??? Szilv-qw-xpsawon kidney injury ([facility] Dx) [N17.9, N18.9] 01/12/2019 ??? Group C streptococcal infection [A49.1] 07/20/2019 Resolved Hospital Problems No resolved problems to display. --Dx most likely Group C strep pharyngitis in IC host, can cause high fevers --If blood cx from here remain neg, OK to switch to Ceftriaxone or Ampicillin tomorrow --Duration of Rx pending, need to avoid PICC in arms due to near-ESRD status --If confusion continues, consider head CT and LP looking for brain abscess, meningitis --Group C strep can cause endocarditis, please check TTE --Group C strep infections have been associated with underlying malignancy --Will follow with you Signed: Nadya Devries MD 07/20/2019, 8:52 PM [phone] [facility] [phone] cell * R Jas Jung MD - 07/20/2019 4:15 PM ESTAssociated Order(s): IP CONSULT TO RENAL; IP CONSULT TO RENAL Nephrology Consult H&P Initial Consult Note Patient: Leoncio Rollins [id number] Date of Admit: 07/19/2019. LOS: 1 days. Referring physician: Marcelino Fox MD Date: 07/20/2019 Reason for Consult Acute Kidney Injury ([facility]) History of Present Illness Leoncio Rollins is a 44 y.o. male with a past medical history of JC on CPAP, CKD, KIM Cirrhosis with EV s/p??liver transplant??09/2017 who presented on 07/19/2019 with Fevers. Nephrology is consulted for CARMEN. Leoncio Rollins reports that he feels well; except only symptoms being anorexia and some lower abdominal swelling. He is sent here from [place] with fevers. He is still fevering all day today; which started yesterday. He is anemic and getting pRBC. He had multiple falls recently and landed on hisleft abdomen. Of note, he was recently admitted 06/2019 for CARMEN with Cr 4.8 and was transferred to for furtherevaluation. Pt was admitted in 01/2019 for fluid overload and had 13gm of proteinuria. Kidney biopsywas offered but pt refused at that time. Cr was around mid 3s over this year. Pt denies exposure toNSAIDs. Contrast exposure: denies Nephrotoxic drug exposure: denies nsaids Hypotensive episodes: none known Past medical, family, and social histories were reviewed as previously documented. Updates were made as necessary. Nutrition: Diet Orders Diet renal starting at 07/19 9414 Access: Patient Lines/Drains/Airways Status Active Epidural Line / PICC Line / PIV Line / ART Line / Line / CVC Line Name: Placement date: Placement time: Site: Days: Peripheral IV 07/20/19 Left Antecubital 07/20/19 0653 Antecubital less than 1 Peripheral IV 07/20/19 Right Antecubital 07/20/19 1503 Antecubital less than 1 NHSN Device Days (06/20/2019 to 07/19/2019) Central line: 0 Urinary catheter: 0 Code Status: Full Code Review of Systems (Focused) Significant as listed in HPI otherwise General: No weight loss; No fever; No chills ENT : No ear pain, No hearing loss Skin: No itching; No rashes Head/Eyes: No headache; No visual changes ENT: No hearing changes; No nasal congestion Respiratory: No dyspnea; No cough; No hemoptysis CV: No chest pain; No ankle edema; No palpitations; No orthopnoea, No PND GI: No nausea / vomiting; No constipation; No diarrhea; No melena : No dysuria; No hematuria; No frequency. No urinary urgency; No hesitancy; No weak stream. Past Medical History Past Medical History: Diagnosis [...] ??? Diabetes Sister Social History Social History Tobacco Use ??? Smoking status: Never Smoker ??? Smokeless tobacco: Never Used Substance Use Topics ??? Alcohol use: No Medications Prior to Admission Medicationss: Medications Prior to Admission Medication Sig Dispense Refill Last Dose ??? aspirin 81 MG chewable tablet Chew 1 tablet (81 mg total) by mouth daily with breakfast. 30 tablet 5 07/19/2019 at Unknown time ??? blood sugar diagnostic Strp Use to test blood sugar up to 4 times a day. Diagnosis for use: E 9.65. For use with One Touch Verio meters. 150 strip 5 07/19/2019 at Unknown time ??? blood-glucose meter (HeySpaceTOUCH VERIO SYSTEM) Mis Use as instructed. 1 each 0 07/19/2019 at Unknown time ??? carBAMazepine (TEGRETOL) 200 mg tablet Take 200 mg by mouth at bedtime. 07/18/2019 at Unknown time ??? carvedilol (COREG) 25 MG tablet Take 2 tablets (50 mg total) by mouth 2 times a day with meals.120 tablet 5 07/19/2019 at Unknown time ??? cloNIDine HCl (CATAPRES) 0.1 MG tablet Take 1 tablet (0.1 mg total) by mouth if needed. (Patient taking differently: Take 0.1 mg by mouth 2 times a day. ) 60 tablet 0 07/19/2019 at Unknown time ??? doxazosin (CARDURA) 8 MG tablet 8 mg 2 times a day. 07/19/2019 at Unknown time ??? entecavir (BARACLUDE) 0.5 MG tablet Take 1 tablet (0.5 mg total) by mouth every 72 hours. 15 tablet 11 07/19/2019 at Unknown time ??? ergocalciferol (VITAMIN D2) 50,000 unit capsule Take 50,000 Units by mouth once a week. 07/19/2019 at Unknown time ??? famotidine (PEPCID) 20 MG tablet Take 20 mg by mouth daily. 07/18/2019 at Unknown time ??? fluticasone propionate (FLONASE) 50 mcg/actuation nasal spray use 2 spray(s) in each nostril daily 07/18/2019 at Unknown time ??? gabapentin (NEURONTIN) 100 MG capsule Take 4 capsules (400 mg total) by mouth daily. 180 capsule 0 07/18/2019 at Unknown time ??? insulin glulisine U-100 (APIDRA U-100 INSULIN) 100 unit/mL injection Inject 5 Units subcutaneously 3 times a day with meals. 10 mL 0 07/19/2019 at Unknown time ??? insulin NPH isoph U-100 human (HUMULIN N NPH INSULIN KWIKPEN) 100 unit/mL (3 mL) InPn Inject subcutaneously 20 units in the AM and 8 units in the PM. 15 mL 5 07/19/2019 at Unknown time ??? lancets (ONETOUCH DELICA LANCETS) 33 gauge Misc Use 1 strip as directed 4 times daily before meals and at bedtime. 150 each 5 07/19/2019 at Unknown time ??? mycophenolate (CELLCEPT) 250 mg capsule Take 3 capsules (750 mg total) by mouth 2 times a day. 180 capsule 5 07/19/2019 at Unknown time ??? NIFEdipine (PROCARDIA-XL) 90 MG (OSM) 24 hr tablet Take 90 mg by mouth 2 times a day. 07/19/2019 at Unknown time ??? ondansetron (ZOFRAN-ODT) 4 MG disintegrating tablet every 8 hours as needed. Past Week at Unknown time ??? pen needle, diabetic 32 gauge x Ndle Use as directed to inject insulin 4 times daily. 150each 5 07/19/2019 at Unknown time ??? pen needle, diabetic 32 gauge x Ndle For use with insulin pen. Use as instructed. 150 each 5 07/19/2019 at Unknown time ??? polyethylene glycol (MIRALAX) 17 gram packet Take 17 g by mouth 2 times a day as needed. 100 packet 0 Past Week at Unknown time ??? sodium bicarbonate 650 MG tablet Take 2 tablets (1,300 mg total) by mouth 2 times a day. 120 tablet 0 07/19/2019 at Unknown time ??? tacrolimus ER, 24 HR, (ENVARSUS XR) 1 mg Tb24 Take 2 tablets (2 mg total) by mouth daily. Per Hepatology recommendations 60 tablet 5 07/19/2019 at Unknown time ??? torsemide (DEMADEX) 20 MG tablet Take 1 tablet (20 mg total) by mouth daily. 30 tablet 5 07/19/2019 at Unknown time Scheduled Medications: ??? aspirin 81 mg Oral Daily with breakfast ??? carBAMazepine 200 mg Oral Nightly (2099) ??? carvedilol 50 mg Oral BID WC ??? ceFEPime (MAXIPIME) IV extended infusion 1 g Intravenous Q24H ??? cloNIDine HCl 0.1 mg Oral BID ??? ergocalciferol 50,000 Units Oral Weekly ??? famotidine 20 mg Oral Daily 0900 ??? heparin 5,000 Units Subcutaneous Q8H ??? insulin lispro 0-4 Units Subcutaneous Nightly (2099) ??? insulin lispro 0-5 Units Subcutaneous TID AC ??? insulin lispro 3 Units Subcutaneous TID AC ??? insulin NPH 18 Units Subcutaneous Daily 0900 ??? insulin NPH 6 Units Subcutaneous Nightly (2099) ??? lidocaine 1 patch Transdermal Q24H ??? NIFEdipine 90 mg Oral BID ??? sodium bicarbonate 1,300 mg Oral BID ??? terazosin 10 mg Oral Nightly (2099) Continuous Infusions: PRN medications: acetaminophen, dextrose 10% in water OR dextrose 10% in water, gabapentin, glucose, polyethylene glycol, traMADol, vancomycin intermittent/pulse dosing PLACEHOLDER ORDER Allergies: Allergies Allergen Reactions ??? Codeine Sulfate Hyper ??? Codeine Other (See Comments) Becomes hyper Vital Signs Temp: [97.8 ??F (36.6 ??C)-102.8 ??F (39.3 ??C)] 102.5 ??F (39.2 ??C) Heart Rate: [86-97] 86 Resp: [16-18] 18 BP: (127-155)/(62-82) 128/69 Patient Vitals for the past 4 hrs: BP Temp Temp src Pulse Resp SpO2 07/20/19 1223 128/69 (!) 102.5 ??F (39.2 ??C) Oral 86 18 92 % Wt Readings from Last 3 Encounters: 07/20/19 (!) 302 lb 4.8 oz (137.1 kg) 07/01/19 (!) 292 lb 14.4 oz (132.9 kg) 02/28/19 (!) 282 lb (127.9 kg) Admit Wt: Weight: (!) 302 lb 1.6 oz (137 kg) Todays Wt: Weight: (!) 302 lb 4.8 oz (137.1 kg) Estimated body mass index is 47.35 kg/m?? as calculated from the following: Height as of this encounter: 5' 7 (1.702 m). Weight as of this encounter: 302 lb 4.8 oz (137.1 kg). Date 07/19/191499 - 07/20/1965807/20/19 07 - 07/21/19 0659 Shift [id number] 8096-9043 24 Hour Total 1761-2878 2438-5040 8353-1745 24 Hour Total INTAKE P.O. 0 120 120 P.O. 0 120 120 I.V.(mL/kg) 0(0) 0(0) Volume (mL) (lactated Ringers infusion) 0 0 Shift Total(mL/kg) 0(0) 120(0.9) 120(0.9) OUTPUT Urine(mL/kg/hr) 0(0) 300(0.3) 300(0.1) 100 100 Urine 0 300 300 100 100 Urine Occurrence 0 x 0 x 0 x Emesis/NG output 0 0 0 Emesis 0 0 0 Emesis Occurrence 0 x 0 x 0 x Stool 0 0 0 Stool Occurrence 0 x 0 x 0 x Stool 0 0 0 Shift Total(mL/kg) 0(0) 300(2.2) 300(2.2) 100(0.7) 100(0.7) Weight (kg) 137 137.1 137.1 137.1 137.1 137.1 137.1 RESPIRATORY Ventilator Setting: No data found. Fi02 Requirement: No data found. Last ABG: Lab Results Component Value Date PCO2 34 (L) 10/09/2017 [id number] 97.6 10/09/2017 Physical Exam General: A&Ox3, NAD, laying comfortably in bed HEENT: normocephalic, atraumatic Neck: neck supple and symmetrical Cardiac: regular rate and rhythm, no M/R/G, normal S1 and S2 Pulm: aerating well, bilaterally CTA, no crackles, no wheezes, no rhonchi Abd: normal bowel sounds, soft, non-tender to palpation, +obese, +L scar Back/Flank: No TTP, No costovertebral angle tenderness to palpation Extremities: atraumatic, no cyanosis, no LE edema Skin: atraumatic, no rashes or lesions Neuro: moving all extremities without difficulty, grossly intact Laboratory Data Recent Labs 07/18/19 0940 07/19/19235607/20/19 0628 WBC 4.37 7.1 5.5 HGB 12.8* 7.4* 6.7* HCT 41 23.0* 21.0* MCV 85.1 84.3 83.5 PLT 134 149 134* Recent Labs 07/18/19 0940 07/19/19 2357 07/20/19 0628 NA 141 134 132* K 4.5 5.4* 4.9 CL 106 101 101 CO2 18 19* 19* BUN 20 58* 57* CREATININE 1.75* 7.45* 7.70* GLUCOSE 169 270* 220* CALCIUM 9.2 7.3* 7.4* MG -- 1.7 -- PHOS 2.9 4.9* 4.1 ANIONGAP -- 14 12 Recent Labs 07/19/19 2357 INR 1.1 PROTIME 15.0 FSBS Range: Recent Labs 07/19/19 2345 07/20/19 0833 07/20/19 1214 POCGMD 272* 195* 150* Recent Labs 07/18/19 0940 07/19/19 2357 ALT 18 6* AST 20 12* ALKPHOS 77 98 BILITOT 0.28 0.3 Cardiac Labs: Recent Labs 07/20/19 0952 CKTOTAL 370* Recent Labs 07/18/19 0940 CHOLTOT 171 TRIG 334* HDL 35 LDL 69 Lab Results Component Value Date HGBA1C 6.8 (A) 07/18/2019 HGBA1C 7.2 (A) 05/15/2019 HGBA1C 7.4 (H) 12/13/2018 Nephro Labs: Recent Labs 07/20/19 0606 COLORU Yellow CLARITYU Cloudy* PROTEINUA >=500* PHUR 6.0 LABSPEC 1.017 GLUCOSEU 150* BLOODU Small* LEUKOCYTESUR Negative NITRITE Negative BILIRUBINUR Negative UROBILINOGEN <2.0 RBCUA 6* WBCUA 1 BACTERIA Few* Recent Labs 07/20/19 0606 NAUR 34 No results found for: MICROALBUR, [id number] Lab Results Component Value Date PTH 164.0 (H) 01/14/2019 CALCIUM 7.4 (L) 07/20/2019 PHOS 4.1 07/20/2019 Lab Results Component Value Date [id number] 15.8 (L) 01/14/2019 Anemia Labs: Lab Results Component Value Date IRON 51 05/15/2019 TIBC 266 05/15/2019 FERRITIN 225 05/15/2019 Lab Results Component Value Date [id number] 525 05/15/2019 Sepsis Marker Labs: Recent Labs 07/20/19 0021 LACTATE 0.7 Lab Results Component Value Date FIBRINOGEN 454 (H) 07/20/2019 No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 RESULTS Final Res ult * (ABNORMAL) Cyclosporine level (07/25/2019 1:59 PM EST) Cyclosporine, Blood 79(L) 100 - 400 ng/mL 07/26/2019 1:08 PM EST [facility] Comment: Detection limit: ??30 ng/mL. ??Performed via chemiluminescent microparticle immunoassay on the [employer] i1000. Whole blood specimen (specimen) 07/25/2019 1:59 PM EST 07/25/2019 2:17 PM EST Marcelino Fox MD LAB BLOOD ORDERABLES Final Re sult Performing Organization Address [facility] Co de Phone Number [facility] [address] [place] [address]. [address] * (ABNORMAL) POC Glucose Monitoring Device (07/25/2019 1:21 PM EST) POC Glucose Monitoring Device 105(H) 70 - 100 mg/dL 07/25/2019 1:22 PM EST [facility] Blood specimen (specimen) 07/25/2019 1:21 PM EST 07/25/2019 1:22 PM EST Result [facility] Marcelino Fox MD POINT OF CARE TEST ORDERABLES Final Result Performing Organization Address City/[facility] Co de Phone Number [facility] [address] [place] [address] * (ABNORMAL) POC Glucose Monitoring Device (07/25/2019 8:42 AM EST) POC Glucose Monitoring Device 123(H) 70 - 100 mg/dL 07/25/2019 8:43 AM EST [facility] Blood specimen (specimen) 07/25/2019 8:42 AM EST 07/25/2019 8:42 AM EST us Marcelino Fox MD POINT OF CARE TEST ORDERABLES Final Result [facility] [address] [facility]. [address] * Magnesium, AM (07/25/2019 6:40 AM EST) Magnesium 2.0 1.5 - 2.5 mg/dL 07/25/2019 7:24 AM EST [facility] Plasma specimen (specimen) 07/25/2019 6:40 AM EST 07/25/2019 6:51 AM EST Marcelino Fox MD LAB BLOOD ORDERABLES Final Re sult Performing Organization Address [facility]/ZIP Co de Phone Number [facility] [address] [facility]. [address] * (ABNORMAL) Renal Function Panel w/EGFR (07/25/2019 6:40 AM EST) Sodium 141 133 - 146 mmol/L 07/25/2019 7:24 AM EST [facility] Potassium 4.5 3.5 - 5.3 mmol/L 07/25/2019 7:24 AM EST [facility] Chloride 103 98 - 110 mmol/L 07/25/2019 7:24 AM EST [facility] CO2 26 21 - 33 mmol/L 07/25/2019 7:24 AM EST [facility] Anion Gap 12 3 - 16 mmol/L 07/25/2019 7:24 AM EST [facility] BUN 27(H) 7 - 25 mg/dL 07/25/2019 7:24 AM EST [facility] Creatinine 4.93(H) 0.60 - 1.30 mg/dL 07/25/2019 7:24 AM EST [facility] Glucose 128(H) 70 - 100 mg/dL 07/25/2019 7:24 AM EST [facility] Calcium 7.6(L) 8.6 - 10.3 mg/dL 07/25/2019 7:24 AM EST [facility] Phosphorus 3.7 2.1 - 4.7 mg/dL 07/25/2019 7:24 AM EST [facility] Albumin 3.0(L) 3.5 - 5.7 g/dL 07/25/2019 7:24 AM EST [facility] Osmolality, Calculated 299 278 - 305 mOsm/kg 07/25/2019 7:24 AM EST [facility] eGFR AA CKD-EPI 15 See note. 7:24 AM EST [facility] Comment: As of 2015 [...] equation to estimate glomerular filtration rate. ??Jennifer Cnc Cutting Operator Med. 2009:150(9):604-12 eGFR NONAA CKD-EPI 13 See note. 2018 7:24 AM EST [facility] Comment: As of 2015 [...] equation to estimate glomerular filtration rate. ??Jennifer [employer]nc Cutting Operator Med. 2009:150(9):604-12 Plasma specimen (specimen) 07/25/2019 6:40 AM EST 07/25/2019 6:51 AM EST us Marcelino Fox MD LAB BLOOD ORDERABLES Final Re sult [facility] [address] [place] [id number], [facility] * (ABNORMAL) CBC, AM (07/25/2019 6:40 AM EST) WBC 4.2 3.8 - 10.8 10E3/uL 07/25/2019 7:00 AM EST [facility] RBC 3.31(L) 4.20 - 5.80 10E6/uL 07/25/2019 7:00 AM [facility] Hemoglobin 8.9(L) 13.2 - 17.1 g/dL 07/25/2019 7:00 AM [facility] Hematocrit 27.3(L) 38.5 - 50.0 % 07/25/2019 7:00 AM EST [facility] MCV 82.6 80.0 - 100.0 fL 07/25/2019 7:00 AM EST [facility] MCH 27.0 27.0 - 33.0 pg 07/25/2019 7:00 AM EST [facility] MCHC 32.7 32.0 - 36.0 g/dL 07/25/2019 7:00 AM [facility] RDW 14.3 11.0 - 15.0 % 07/25/2019 7:00 AM [facility] Platelets 239 140 - 400 10E3/uL 07/25/2019 7:00 AM [facility] MPV 7.4(L) 7.5 - 11.5 fL 07/25/2019 7:00 AM [facility] Whole blood specimen (specimen) 07/25/2019 6:40 AM EST 07/25/2019 6:51 AM EST Marcelino Fox MD LAB BLOOD ORDERABLES Final Re sult [facility] [address] * Histoplasma Antigen, Serum (07/25/2019 6:40 AM EST) Histoplasma Ag Result Serum None Detected ng/mL 07/29/2019 9:16 AM EST [facility] Comment:None Detected Histoplasma Ag Interp Serum Negative 07/29/2019 9:16 AM [facility] Comment: Results reported as ng/mL in 0.4 - 19 ng/mL range Results above the limit of detection but below 0.4 ng/mL are reported as 'Positive, Below the Limit of Quantification' Results above 19 ng/mL are reported as 'Positive, Above the Limit of Quantification' Serum specimen (specimen) 07/25/2019 6:40 AM EST 07/29/2019 10:06 AM EST us Marcelino Fox MD LAB BLOOD ORDERABLES Final Re sult Performing Organization Address [facility]/ZIP Co de Phone Number [facility] [address] * Histoplasma antigen, urine (07/25/2019 12:13 AM EST) Histoplasma Ag Result UR None Detected ng/mL 07/29/2019 9:16 AM EST [facility] Comment:None Detected Histoplasma Ag Interp UR Negative 07/29/2019 9:16 AM EST [facility] Comment: Results reported as ng/mL in 0.4 - 19 ng/mL range Results above the limit of detection but below 0.4 ng/mL are reported as 'Positive, Below the Limit of Quantification' Results above 19 ng/mL are reported as 'Positive, Above the Limit of Quantification' Urine specimen (specimen) 07/25/2019 12:13 AM EST 07/29/2019 10:06 AM EST Narrative [facility] - 07/29/2019 10:06 AM EST PERFORMED AT: [employer] [address] [place] [address] [place] [id number] FRONT END SOFTWARE DEVELOPER: Gus Figueroa MD ?? PHONE: [phone] PERFORMED AT: [address] [id number] FRONT END SOFTWARE DEVELOPER: Octavio Best, PhD ?? PHONE: [phone] us Marcelino Fox MD URINE ORDERABLES Final Result Performing Organization Address City/[facility]/ZIP Co de Phone Number [facility] [address] [place] [address], [facility] * (ABNORMAL) POC Glucose Monitoring Device (07/24/2019 9:21 PM EST) POC Glucose Monitoring Device 140(H) 70 - 100 mg/dL 07/24/2019 9:21 PM EST [facility] Blood specimen (specimen) 07/24/2019 9:21 PM EST 07/24/2019 9:21 PM EST us Marcelino Fox MD POINT OF CARE TEST ORDERABLES Final Result Performing Organization Address City/[facility] Co de Phone Number [facility] [address] [facility]. [address] * (ABNORMAL) POC Glucose Monitoring Device (07/24/2019 3:27 PM EST) POC Glucose Monitoring Device 115(H) 70 - 100 mg/dL 07/24/2019 3:27 PM EST [facility] Blood specimen (specimen) 07/24/2019 3:27 PM EST 07/24/2019 3:27 PM EST us Marcelino Fox MD POINT OF CARE TEST ORDERABLES Final Result Performing Organization Address [facility] de Phone Number [facility] [address] [facility]. [address] * DILATATION (07/24/2019 1:00 PM EST) 07/24/2019 1:00 PM EST Narrative [facility] - 08/05/2019 11:51 PM EST [id number] Procedure Date: 07/24/2019 1:00 PM ?Patient Name: Leoncio Rollins ? Date of : 1975 ?Admit Type: Inpatient Age: 44 ? Gender: Male Note Status: Finalized ?Attending MD: ARNOLD ORDOÑEZ MD Procedure: ? Upper GI endoscopy Indications: ? Odynophagia Providers: ? ARNOLD ORDOÑEZ MD, Jose Pineda (Fellow) Referring MD: ? Medicines: ? Monitored [...] the procedure well. ? Findings: ? A single 5 mm mucosal nodule with a localized distribution was found in ? the lower third of the esophagus, 36 cm from the incisors. Biopsies were ? taken with a cold forceps for histology. Estimated blood loss was ? minimal. ? A small hiatal hernia was present. ? Localized mildly erythematous mucosa without bleeding was found at the ? pylorus. ? The examined duodenum was normal. ? The exam was otherwise without abnormality. ? Impression: ?- Mucosal nodule found in the esophagus. Biopsied. ? - Small hiatal hernia. ? - Erythematous mucosa in the pylorus. ? - Normal examined duodenum. ? - The examination was otherwise normal. Recommendation: ?- Return patient to [facility] for ongoing care. ? - Resume previous diet. ? - Continue present medications. ? - Await pathology results. ? Procedure Code(s): ?? --- Professional --- ? 06472, GC, Esophagogastroduodenoscopy, flexible, ? transoral; with biopsy, single or multiple Diagnosis Code(s): ?? --- Professional --- ? K22.8, Other specified diseases of esophagus ? K44.9, Diaphragmatic hernia without obstruction or ? gangrene ? K31.89, Other diseases of stomach and duodenum ? R13.10, Dysphagia, unspecified CPT copyright 2016 [employer]. All rights reserved. The codes documented in this report are preliminary and upon pipe jeeper review may be revised to meet current compliance requirements. Attending Participation: ? I was present for the entire viewing portion, including introduction and ? removal of the scope. ? Arnold Ordoñez MD ARNOLD ORDOÑEZ MD 08/05/2019 11:51:43 PM This report has been signed electronically.MD JOSE COFFMAN Jose Pineda, 07/24/2019 1:19:16 PM Total Procedure Duration Time 0 hours 3 minutes 35 seconds Scope In: 1:09:18 PM Scope Out: 1:12:53 PM ? [address] [place], [place] [id number] us Attending Provider Unknown PROCEDURE/MINOR SURGI NI ORDERABLES Final Result [facility] [address] [facility] [place] [address] * (ABNORMAL) POC Glucose Monitoring Device (07/24/2019 12:50 PM EST) POC Glucose Monitoring Device 118(H) 70 - 100 mg/dL 07/24/2019 12:50 PM EST [facility] Blood specimen (specimen) 07/24/2019 12:50 PM EST 07/24/2019 12:50 PM EST Marcelino Fox MD POINT OF CARE TEST ORDERABLES Final Result Performing Organization Address [facility] Co de Phone Number [facility] [address] [facility]. [address] * (ABNORMAL) POC Glucose Monitoring Device (07/24/2019 9:27 AM EST) POC Glucose Monitoring Device 123(H) 70 - 100 mg/dL 07/24/2019 9:27 AM EST [facility] Blood specimen (specimen) 07/24/2019 9:27 AM EST 07/24/2019 9:27 AM EST Marcelino Fox MD POINT OF CARE TEST ORDERABLES Final Result Performing Organization Address [facility] Co de Phone Number [facility] [address] [facility]. [address] * CMV culture (07/24/2019 8:30 AM EST) Pathologist [facility] [place] Cytomegalovirus (CMV) Culture Comment 08/01/2019 5:59 AM EST [facility] Comment:No Cytomegalovirus i solated. Swab (specimen) 07/24/2019 8 :30 AM EST 08/01/2019 6:06 AM EST Narrative [facility] - 08/01/2019 6:06 AM EST PERFORMED AT: [facility] [id number] FRONT END SOFTWARE DEVELOPER: Jeny Pereyra MD ?? PHONE: [phone] Marcelino Fox MD MICROBIOLOGY - GENERAL ORDERA BLES Final Result Performing Organization Address [facility] Co de Phone Number [facility] [address] [facility]. [address] * (ABNORMAL) Hepatic Function Panel (07/24/2019 3:28 AM EST) Pathologist [facility] [place] Total Bilirubin 0.2 0.0 - 1.5 mg/dL 07/24/2019 4:07 AM EST [facility] Bilirubin, Direct 0.09 0.00 - 0.40 mg/dL 07/24/2019 4:07 AM EST [facility] AST 13 13 - 39 U/L 07/24/2019 4:07 AM EST [facility] ALT 6(L) 7 - 52 U/L 07/24/2019 4:07 AM EST [facility] Alkaline Phosphatase 79 36 - 125 U/L 07/24/2019 4:07 AM EST [facility] Total Protein 5.7(L) 6.4 - 8.9 g/dL 07/24/2019 4:07 AM EST [facility] Albumin 3.0(L) 3.5 - 5.7 g/dL 07/24/2019 4:07 AM EST [facility] Bilirubin, Indirect 0.11 0.00 - 1.10 mg/dL 07/24/2019 4:07 AM EST [facility] Plasma specimen (specimen) 07/24/2019 3:28 AM EST 07/24/2019 3:32 AM EST us Marcelino Fox MD LAB BLOOD ORDERABLES Final Re sult [facility] [address] * Magnesium, AM (07/24/2019 3:28 AM EST) Magnesium 1.9 1.5 - 2.5 mg/dL 07/24/2019 4:07 AM EST [facility] Plasma specimen (specimen) 07/24/2019 3:28 AM EST 07/24/2019 3:32 AM EST us Marcelino Fox MD LAB BLOOD ORDERABLES Final Re sult [facility] [address] * (ABNORMAL) Renal Function Panel w/EGFR (07/24/2019 3:28 AM EST) Sodium 139 133 - 146 mmol/L 07/24/2019 4:07 AM EST [facility] Potassium 4.4 3.5 - 5.3 mmol/L 07/24/2019 4:07 AM [facility] Chloride 103 98 - 110 mmol/L 07/24/2019 4:07 AM EST [facility] CO2 24 21 - 33 mmol/L 07/24/2019 4:07 AM [facility] Anion Gap 12 3 - 16 mmol/L 07/24/2019 4:07 AM [facility] BUN 52(H) 7 - 25 mg/dL 07/24/2019 4:07 AM [facility] Creatinine 6.40(H) 0.60 - 1.30 mg/dL 07/24/2019 4:07 AM [facility] Glucose 156(H) 70 - 100 mg/dL 07/24/2019 4:07 AM [facility] Calcium 7.1(L) 8.6 - 10.3 mg/dL 07/24/2019 4:07 AM EST [facility] Phosphorus 4.7 2.1 - 4.7 mg/dL 07/24/2019 4:07 AM [facility] Albumin 3.0(L) 3.5 - 5.7 g/dL 07/24/2019 4:07 AM EST [facility] Osmolality, Calculated 305 278 - 305 mOsm/kg 07/24/2019 4:07 AM [facility] eGFR AA CKD-EPI 11 See note. 9 4:07 AM [facility] Comment: As of 2015 the estimated [...] equation to estimate glomerular filtration rate. ??Jennifer Cnc Cutting Operator Med. 2009:150(9):604-12 eGFR NONAA CKD-EPI 10 See note. 2018 4:07 AM EST [facility] Comment: As of [...] equation to estimate glomerular filtration rate. ??Jennifer Cnc Cutting Operator Med. 2009:150(9):604-12 Plasma specimen (specimen) 07/24/2019 3:28 AM EST 07/24/2019 3:32 AM EST us Marcelino Fox MD LAB BLOOD ORDERABLES Final Re sult [facility] [address] [place] [address], [facility] * Surgical Pathology Exam (07/24/2019 12:00 AM EST) Tissue specimen (specimen) TISSUE SPECIMEN / Unknown 07/24/2019 1:11 PM EST Comment:Lower esophageal nod ule- bx forceps Narrative [facility] - 07/24/2019 12:00 AM EST CASE: [id number] PATIENT: LEONCIO ROLLINS Clinical History: ?? EGD with biopsy Pre-Operative Diagnosis: Odynophagia, oropharyngeal ulcers r/o esophageal ulcer/esophagitis Post-Operative Diagnosis: ? None Given Specimen(s) Submitted: ?? A. Lower esophageal nodule CPT Code(s): ?? 05134 X 1; 22065 X 1 Additional Information: FINAL DIAGNOSIS: Esophagus, lower esophageal nodule, biopsy: - ??Polypoid fragment of ulcerated squamous mucosa with acute and chronic inflammation, granulation tissue formation, reactive changes, and nuclear and cytoplasmic viral inclusions, consistent with CMV esophagitis. 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 - ??No evidence of dysplasia or malignancy. Kristie Gross Description: Received in formalin, labeled with the patient's name Leoncio Rollins and lower esophageal nodule is a single piece of pink-gaytan tissue, measuring 0.2 x 0.2 x 0.2 cm. ??The specimen is filtered into a biopsy bag and submitted entirely in cassette [id number]. ??(NAVNEET Claire (ASCP)/bhakti) Microscopic Description: Microscopic examination is performed, please see final diagnosis. ??REBEKAH/bhakti I, the attending pathologist, have personally reviewed all prosector/resident work and pathology slides to determine final diagnosis. Some tests use analyte-specific reagents (ASRs). These tests were developed and their performance characteristics determined by [facility]. They have not been cleared [...] developed and their performance characteristics determined by [facility] Pathology. They have not been cleared [...] Materials Reacted Appropriately. Final Diagnosis performed by GWENDOLYN CASTILLO M.D. Pathologist Electronically signed 07/26/2019 04:08:08 PM The Pathologist signing this report is located at [facility], [address] [place] [address], [place], [facility], , CLIA ID: [id number] Arnold Ordoñez MD PATHOLOGY/CYTOLOGY ORDERABLES Final Result [facility] * (ABNORMAL) POC Glucose Monitoring Device (07/23/2019 7:51 PM EST) POC Glucose Monitoring Device 115(H) 70 - 100 mg/dL 07/23/2019 7:52 PM EST [facility] Blood specimen (specimen) 07/23/2019 7:51 PM EST 07/23/2019 7:52 PM EST Marcelino Fox MD POINT OF CARE TEST ORDERABLES Final Result [facility] [address] * POC Glucose Monitoring Device (07/23/2019 5:53 PM EST) POC Glucose Monitoring Device 74 70 - 100 mg/dL 07/23/2019 5:54 PM EST [facility] Blood specimen (specimen) 07/23/2019 5:53 PM EST 07/23/2019 5:54 PM EST Marcelino Fox MD POINT OF CARE TEST ORDERABLES Final Result Performing Organization Address [facility] de Phone Number [facility] [address] * (ABNORMAL) CMV Culture (07/23/2019 5:52 PM EST) Cytomegalovirus (CMV) Culture Comment(A ) 07/29/2019 12:42 PM EST [facility] Comment: Positive Cytomegalovirus detected by immunofluorescent monoclonal antibody staining in shell vial culture. Swab (specimen) MOUTH REGION STRUCTURE / Unknown 07/23/2019 5:52 PM EST 07/29/2019 1:06 PM EST Narrative [facility] - 07/29/2019 1:06 PM EST PERFORMED AT: [facility] [id number] FRONT END SOFTWARE DEVELOPER: Jeny Pereyra MD ?? PHONE: [phone] Laura Henriquez MD MICROBIOLOGY - GENERAL KIESHA CORONA Final Result Performing Organization Address [facility] Co de Phone Number [facility] [address] * Herpes Simplex Virus Culture without Typing (07/23/2019 5:52 PM EST) HSV Culture Without Typing Negative 07/25/2019 12:03 PM EST [facility] Swab (specimen) MOUTH REGION STRUCTURE / Unknown 07/23/2019 5:52 PM EST 07/29/2019 1:06 PM EST Narrative [facility] - 07/29/2019 1:06 PM EST PERFORMED AT: [facility] [id number] FRONT END SOFTWARE DEVELOPER: Octavio Best, PhD ?? PHONE: [phone] us Laura Henriquez MD MICROBIOLOGY - GENERAL KIESHA CORONA Final Result Performing Organization Address [facility] Co de Phone Number [facility] [address] [place] [address]. [address] * POC Glucose Monitoring Device (07/23/2019 3:31 PM EST) POC Glucose Monitoring Device 90 70 - 100 mg/dL 07/23/2019 3:42 PM EST [facility] Blood specimen (specimen) 07/23/2019 3:31 PM EST 07/23/2019 3:42 PM EST us Marcelino Fox MD POINT OF CARE TEST ORDERABLES Final Result Performing Organization Address [facility] Co de Phone Number [facility] [address] * (ABNORMAL) POC Glucose Monitoring Device (07/23/2019 11:29 AM EST) POC Glucose Monitoring Device 113(H) 70 - 100 mg/dL 07/23/2019 11:30 AM EST [facility] Blood specimen (specimen) 07/23/2019 11:29 AM EST 07/23/2019 11:30 AM EST us Marcelino Fox MD POINT OF CARE TEST ORDERABLES Final Result [facility] [address] [place] [address], [facility] * IR huey Alvarado Yuval Right wo port >5years (07/23/2019 10:21 AM EST) Anatomical Region Laterality Modality Vascular X-Ray Angiograph y 07/23/2019 9:42 AM EST Impressions 07/23/2019 12:06 PM EST IMPRESSION: 1. Successful placement of a 28 cm tip-to-cuff, tunneled, hemodialysis catheter via the right internal jugular vein. ?? Report Verified by: Ahsan Marcus PA-C at 07/23/2019 12:06 PM EST Narrative 07/23/2019 12:06 PM EST Procedure: TUNNELED, HEMODIALYSIS CATHETER PLACEMENT, ULTRASOUND- AND FLUOROSCOPIC-GUIDED Performed on 07/23/2019 Indications: Leoncio Hanley a 44 y.o.malewith history cirrhosis s/p OLT with fevers and CARMEN on CKD. 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 Operators: Ahsan Marcus PA-C Procedure and Findings: The procedure was performed in the VIR suite following informed consent. ??The patient received preprocedure IV antibiotics. ??1% lidocaine local anesthesia was used. ??With the patient in the supine position, the right neck and upper chest were prepped and draped in the usual sterile fashion. ?? The right internal jugular vein was evaluated by ultrasound and was found to be widely patent. ??Using ultrasound guidance, an appropriate skin entry site was identified and the right internal jugular vein was accessed using a 21-G needle. ??A 0.018 inch guidewire was advanced into the vein using fluoroscopic guidance. ??The access needle was exchanged for a 4-F stiff micropuncture catheter. ??The 0.018 inch guidewire was used for measurement prior to its removal. ?? A site 1-2 cm below the inferior margin the clavicle was identified as the tunnel exit site. ??A small incision was made using a #11 blade and the catheter was tunneled through the chest incision to the lateral neck dermatotomy. ??The catheter cuff was placed 1-2 cm inside the tunnel exit site. ?? The micropuncture catheter was exchanged for a 0.035 inch guidewire. ??Using fluoroscopic guidance, the guidewire was positioned into the IVC. ??The track was serially dilated to 14-F and the peel-away sheath was inserted over the guidewire. ??The hemodialysis catheter was advanced through the peel-away sheath and placed into position. ?? A fluoroscopic image was obtained which confirmed the tip of the catheter was in the mid-right atrium. ?? The catheter lumens aspirated and flushed freely. ??Each catheter lumen was primed with appropriate volumes of heparin 1000 units / mL. ??The right neck dermatotomy incision was closed with Dermabond. ??The catheter was secured with suture and dressed in the usual fashion. ?? There were no immediate complications. ?? Fluoro time was 3.47 minutes. Procedure Note Ahsan Marcus PA - 07/23/2019 Procedure: TUNNELED, HEMODIALYSIS CATHETER PLACEMENT, ULTRASOUND- ANDFLUOROSCOPIC-GUIDED Performed on 07/23/2019 Indications: Leoncio Hanley a 44 y.o.malewith history cirrhosis s/p OLTwith fevers and CARMEN on CKD. Patient needs venous access for [employer].History ofbacteremia, culture negative since 07/20/2019. Operators: Ahsan Marcus PA-C Procedure and Findings: The procedure was performed in the VIR suite following informed consent.The patient received preprocedure IV antibiotics. 1% lidocaine localanesthesia was used. With the patient in the supine position, the rightneck and upper chest were prepped and draped in the usual sterile fashion. The right internal jugular vein was evaluated by ultrasound and was foundto be widely patent. Using ultrasound guidance, an appropriate skin entrysite was identified and the right internal jugular vein was accessed usinga 21-G needle. A 0.018 inch guidewire was advanced into the vein usingfluoroscopic guidance. The access needle was exchanged for a 4-F stiffmicropuncture catheter. The 0.018 inch guidewire was used for measurementprior to its removal. A site 1-2 cm below the inferior margin the clavicle was identified as thetunnel exit site. A small incision was made using a #11 blade and thecatheter was tunneled through the chest incision to the lateral neckdermatotomy. The catheter cuff was placed 1-2 cm inside the tunnel exitsite. The micropuncture catheter was exchanged for a 0.035 inch guidewire.Using fluoroscopic guidance, the guidewire was positioned into the IVC.The track was serially dilated to 14-F and the peel-away sheath wasinserted over the guidewire. The hemodialysis catheter was advancedthrough the peel-away sheath and placed into position. A fluoroscopic image was obtained which confirmed the tip of the catheterwas in the mid-right atrium. The catheter lumens aspirated and flushed freely. Each catheter lumen wasprimed with appropriate volumes of heparin 1000 units / mL. The rightneck dermatotomy incision was closed with Dermabond. The catheter wassecured with suture and dressed in the usual fashion. There were no immediate complications. Fluoro time was 3.47 minutes. IMPRESSION: 1. Successful placement of a 28 cm tip-to-cuff, tunneled, hemodialysiscatheter via the right internal jugular vein. Report Verified by: Ahsan Marcus PA-C at 07/23/2019 12:06 PM EST Stan Larios DO IMG IR ORDERABLES Final Resu lt * (ABNORMAL) Tacrolimus level (07/23/2019 4:14 AM EST) Pathologist [facility] [place] Tacrolimus Lvl 3.2(L) 5.0 - 20.0 ng/mL 07/23/2019 11:13 AM EST [facility] Comment: Detection limit: ??2 ng/mL. ??Performed via chemiluminescent microparticle immunoassay on the [employer] i1000. Whole blood specimen (specimen) 07/23/2019 4:14 AM EST 07/23/2019 5:18 AM EST Marcelino Fox MD LAB BLOOD ORDERABLES Final Re sult [facility] [address] [place] [address], [facility] * Magnesium, AM (07/23/2019 4:14 AM EST) Magnesium 2.0 1.5 - 2.5 mg/dL 07/23/2019 5:49 AM EST [facility] Plasma specimen (specimen) 07/23/2019 4:14 AM EST 07/23/2019 5:17 AM EST us Marcelino Fox MD LAB BLOOD ORDERABLES Final Re sult [facility] [address] * (ABNORMAL) Renal Function Panel w/EGFR (07/23/2019 4:14 AM EST) Sodium 139 133 - 146 mmol/L 07/23/2019 5:49 AM EST [facility] Potassium 4.4 3.5 - 5.3 mmol/L 07/23/2019 5:49 AM [facility] Chloride 103 98 - 110 mmol/L 07/23/2019 5:49 AM [facility] CO2 21 21 - 33 mmol/L 07/23/2019 5:49 AM [facility] Anion Gap 15 3 - 16 mmol/L 07/23/2019 5:49 AM [facility] BUN 64(H) 7 - 25 mg/dL 07/23/2019 5:49 AM [facility] Creatinine 8.86(H) 0.60 - 1.30 mg/dL 07/23/2019 5:49 AM [facility] Glucose 107(H) 70 - 100 mg/dL 07/23/2019 5:49 AM [facility] Calcium 7.2(L) 8.6 - 10.3 mg/dL 07/23/2019 5:49 AM [facility] Phosphorus 5.8(H) 2.1 - 4.7 mg/dL 07/23/2019 5:49 AM [facility] Albumin 2.9(L) 3.5 - 5.7 g/dL 07/23/2019 5:49 AM [facility] Osmolality, Calculated 307(H) 278 - 305 mOsm/kg 07/23/2019 5:49 AM [facility] eGFR AA CKD-EPI 8 See note. 9 5:49 AM EST [facility] Comment: As of 2015 the estimated [...] equation to estimate glomerular filtration rate. ??Jennifer [employer] Med. 2009:150(9):604-12 eGFR NONAA CKD-EPI 6 See note. 2018 5:49 AM EST [facility] Comment: As of 2015 [...] equation to estimate glomerular filtration rate. ??Jennifer [employer] Med. 2009:150(9):604-12 Plasma specimen (specimen) 07/23/2019 4:14 AM EST 07/23/2019 5:17 AM EST us Marcelino Fox MD LAB BLOOD ORDERABLES Final Re sult [facility] [address] * (ABNORMAL) CBC, AM (07/23/2019 4:14 AM EST) WBC 4.4 3.8 - 10.8 10E3/uL 07/23/2019 5:29 AM EST [facility] RBC 2.70(L) 4.20 - 5.80 10E6/uL 07/23/2019 5:29 AM EST [facility] Hemoglobin 7.3(L) 13.2 - 17.1 g/dL 07/23/2019 5:29 AM EST [facility] Hematocrit 22.4(L) 38.5 - 50.0 % 07/23/2019 5:29 AM EST [facility] MCV 83.0 80.0 - 100.0 fL 07/23/2019 5:29 AM [facility] MCH 27.0 27.0 - 33.0 pg 07/23/2019 5:29 AM [facility] MCHC 32.5 32.0 - 36.0 g/dL 07/23/2019 5:29 AM [facility] RDW 13.9 11.0 - 15.0 % 07/23/2019 5:29 AM [facility] Platelets 146 140 - 400 10E3/uL 07/23/2019 5:29 AM [facility] MPV 8.2 7.5 - 11.5 fL 07/23/2019 5:29 AM [facility] Whole blood specimen (specimen) 07/23/2019 4:14 AM EST 07/23/2019 5:17 AM EST Marcelino Fox MD LAB BLOOD ORDERABLES Final Re sult [facility] [address] * (ABNORMAL) POC Glucose Monitoring Device (07/22/2019 9:35 PM EST) POC Glucose Monitoring Device 159(H) 70 - 100 mg/dL 07/22/2019 9:35 PM EST [facility] Blood specimen (specimen) 07/22/2019 9:35 PM EST 07/22/2019 9:35 PM EST Marcelino Fox MD POINT OF CARE TEST ORDERABLES Final Result [facility] [address] * (ABNORMAL) POC Glucose Monitoring Device (07/22/2019 4:57 PM EST) POC Glucose Monitoring Device 124(H) 70 - 100 mg/dL 07/22/2019 4:58 PM EST [facility] Blood specimen (specimen) 07/22/2019 4:57 PM EST 07/22/2019 4:58 PM EST Marcelino Fox MD POINT OF CARE TEST ORDERABLES Final Result Performing Organization Address City/[facility]/ZIP Co de Phone Number [facility] [address] * Herpes Simplex 1 & 2, Real-time PCR (07/22/2019 3:50 PM EST) HSV 1, PCR Not Detected Not Detected 07/24/2019 12:07 PM EST [facility] HSV 2 , PCR Not Detected Not Detected 07/24/2019 12:07 PM EST [facility] Comment: This test is an FDA-approved nucleic acid amplification test that detects HSV types 1 and 2 from mucocutaneous and cutaneous swab specimens. Performance characteristics of the test on BAL fluid, plasma and CSF have been determined by [facility] as a laboratory-developed test. For HSV type 1, the limit of detection (LoD) was determined to be 3.4 x10?? TCID50/mL for CSF, 3.4 x10?? TCID50/mL for plasma, and 3.4 x10?? TCID50/mL for BAL specimens. For HSV type 2, LoD was determined to be 5.0 x10? TCID50/mL for CSF, 5.0 x10?TCID50/mL for plasma, and 5.0 x10?? TCID50/mL for BAL specimens. [facility] is certified under the Clinical Laboratory Improvement Amendment of 1988 (CLIA-88) as qualified to perform high complexity clinical laboratory testing. This test is used for clinical purposes. It should not be regarded as investigational or for research. The results are not meant to be used as the sole means for clinical diagnosis or patient management. Swab (specimen) PHARYNX AND/OR LARYNX STRUCTURES / Unknown 07/22/2019 3:50 PM EST 07/23/2019 2:09 PM EST Marcelino Fox MD BODY FLUIDS AND STOOLS ORDERA BLES Final Result Performing Organization Address City/[facility]/ZIP Co de Phone Number [facility] [address] * Echo 2D Comp. w/Contrast (TTE) (07/22/2019 3:09 PM EST) 07/22/2019 2:18 PM EST Narrative [facility]NET - 07/22/2019 6:29 PM EST ?* [facility]* ?[address] [facility] ? [place] [address] ? [phone] Transthoracic Echocardiography Patient: ?Leoncio Rollins MR #: ? [id number] Account: Study Date: 07/22/2019 Gender: ? M Age: ?44 : ?1975 Room: ? REPLACED BY [facility] ?Hodan Carroll PERFORMING ??Jennifer Mckeon ORDERING ?Marcelino Fox REFERRING ?? Keon Brown ATTENDING ?? Marcelino Fox ADMITTING ?? Marcelino Fox Procedure:ECHO 2D COMPLETE ? 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 PMH: ??KIM, fever, chronic renal disease, JC, weakness, DM, HTN. Study data: ??Height: 67in. 170.2cm. Weight: 300.3lb. 136.5kg. Study status: ??Routine. ??Procedure: ??Transthoracic echocardiography. Image quality was fair. Scanning was performed from the parasternal, apical, and subcostal acoustic windows. Intravenous contrast Definity and agited saline was administered. ? Transthoracic echocardiography. ??M-mode, complete 2D, complete spectral Doppler, and color Doppler. ??Birthdate: ??Patient birthdate: 1975. ??Age: ??Patient is 44yr old. ??Sex: ?? gender: male. ??Body mass index: ??BMI: 47.1kg/m^2. ??Body surface area: ?BSA: 2.62m^2. ??Blood pressure: ? 108/73 ??Patient status: Inpatient. ??Study date: ??Study date: 07/22/2019. Study time: 02:18 PM. ??Location: ??Echo laboratory. Study Conclusions - Left ventricle: The cavity size is normal. Wall thickness was ??increased in a pattern of mild LVH. Systolic function was normal. ??The estimated ejection fraction was in the range of 50% to 55%. ??Wall motion was normal; there were no regional wall motion ??abnormalities. Features are consistent with a pseudonormal left ??ventricular filling pattern, with concomitant abnormal relaxation ??and increased filling pressure (grade 2 diastolic dysfunction). - Left atrium: The atrium is mildly dilated. - Right ventricle: Systolic function was normal by objective ??interpretation. - Right atrium: The atrium is mildly dilated. - Atrial septum: Echo contrast study shows no shunt. - Pulmonary arteries: Systolic pressure was moderately increased, ??estimated to be 50mm Hg assuming that the right atrial pressure ??was 15 mmHg. Cardiac Anatomy Left ventricle: - The cavity size is normal. Wall thickness was increased in a ??pattern of mild LVH. Systolic function was normal. The estimated ??ejection fraction was in the range of 50% to 55%. Wall motion was ??normal; there were no regional wall motion abnormalities. - Wall motion score: 1.00. - Features are consistent with a pseudonormal left ventricular ??filling pattern, with concomitant abnormal relaxation and ??increased filling pressure (grade 2 diastolic dysfunction). Aorta: ?? Aortic root: - The aortic root is normal in size. Aortic valve: - Trileaflet; normal thickness leaflets. Mobility was not ??restricted. Doppler: - Transvalvular velocity is within the normal range. There is no ??stenosis. No regurgitation. Mitral valve: - Structurally normal valve. Mobility was not restricted. Doppler: - Transvalvular velocity is within the normal range. There is no ??evidence for stenosis. No regurgitation. Left atrium: - The atrium is mildly dilated. Atrial septum: - Echo contrast study shows no shunt. Pulmonary artery: - The main pulmonary artery was normal-sized. Systolic pressure was ??moderately increased, estimated to be 50mm Hg assuming that the ??right atrial pressure was 15 mmHg. Systemic veins: Inferior vena cava: The vessel was dilated. The respirophasic diameter changes were blunted (< 50%), consistent with elevated central venous pressure. Right ventricle: - The cavity size is normal. Wall thickness is normal. Systolic ??function was normal by objective interpretation. Pulmonic valve: ?Doppler: - Transvalvular velocity is within the normal range. There is no ??evidence for stenosis. Mild regurgitation. Tricuspid valve: - Structurally normal valve. Doppler: - Transvalvular velocity is within the normal range. No ??regurgitation. Right atrium: - The atrium is mildly dilated. Pericardium: - There is no pericardial effusion. Systemic veins: Inferior vena cava: - The vessel was dilated. The respirophasic diameter changes were ??blunted (< 50%), consistent with elevated central venous ??pressure. - Measurements Left ? Value ?01/16/2019 Ref ventricle GINA, ?(H) ?6.2 ?? cm ? 5.0 ?4.2 LAX ?- ?5.8 ESD, ?(H) ?4.4 ?? cm ? 3.4 ?2.5 LAX ?- ?4.0 GINA/bsa (N) ?2.4 ?? cm/m^2 ?? 2.2 , LAX ?- ?3.0 ESD/bsa (N) ?1.7 ?? cm/m^2 ?? 1.3 , LAX ?- ?2.1 FS, LAX (N) ?29 ?% ?32 ? 25 - ?43 FS, LAX (N) ?29 ?% ?30 ? 25 - chord ?43 ESD ?7.4 ?? cm ? ---- major ax, A4C ESD/bsa ?2.8 ?? cm/m^2 ?? ---- major ax, A4C GINA ?7.4 ?? cm ? ---- minor ax, A4C GINA/bsa ?2.8 ?? cm/m^2 ?? ---- minor ax, A4C RACHEL, ? 39.1 ??cm^2 ? ---- A4C MINERVA, ? 22.5 ??cm^2 ? ---- A4C FAC, ? 42 ?% ? ---- A4C GINA ?8.3 ?? cm ? ---- major ax, A2C GINA/bsa ?3.2 ?? cm/m^2 ?? ---- major ax, A2C RACHEL, ? 39.1 ??cm^2 ? ---- A2C MINERVA, ? 20.1 ??cm^2 ? ---- A2C FAC, ? 49 ?% ? ---- A2C ESD ? (H) ?4.4 ?? cm ? 2.5 ?- ?4.0 ESD/bsa (N) ?1.7 ?? cm/m^2 ?? 1.3 ?- ?2.1 PW, ED ??(H) ?1.4 ?? cm ? 1.3 ?0.6 ?- ?1.0 IVS/PW, ?0.96 ? 0.97 ? ---- ED EDV ? (H) ?191 ?? ml ? 125 ?62 - ?150 ESV ? (H) ?86 ?ml ? 43 ? 21 - ?61 EF ?(N) ?55 ?% ?66 ? 52 - ?72 EDV/bsa (N) ?73 ?ml/m^2 ?? 49 ? 34 - ?74 ESV/bsa (H) ?33 ?ml/m^2 ?? 17 ? 11 - ?31 EDV, ?(N) ?151 ?? ml ? 59 - 1-p A2C ?175 ESV, ?(H) ?101 ?? ml ? 15 - 1-p A2C ?75 EF, 1-p (N) ?67 ?% ? 48 - A2C ?76 SV, 1-p ?105 ?? ml ? ---- A2C EDV/bsa (N) ?58 ?ml/m^2 ?? 31 - , 1-p ?87 A2C ESV/bsa (H) ?39 ?ml/m^2 ?? 9 - , 1-p ?37 A2C SV/bsa, ?40.1 ??ml/m^2 ?? ---- 1-p A2C EDV, ?(N) ?148 ?? ml ? 69 - 1-p A4C ?185 ESV, ?(N) ?57 ?ml ? 22 - 1-p A4C ?78 EF, 1-p (N) ?61 ?% ?60 ? 46 - A4C ?74 SV, 1-p ?151 ?? ml ? 92 ? ---- A4C EDV/bsa (N) ?57 ?ml/m^2 ?? 37 - , 1-p ?93 A4C ESV/bsa (N) ?22 ?ml/m^2 ?? 12 - , 1-p ?40 A4C SV/bsa, ?58 ?ml/m^2 ?? 36 ? ---- 1-p A4C EDV, ?(H) ?151 ?? ml ? 165 ?62 - 2-p ?150 ESV, ?(N) ?56 ?ml ? 67 ? 21 - 2-p ?61 EF, 2-p (N) ?63 ?% ?59 ? 52 - ?72 SV, 2-p ?95 ?ml ? 98 ? ---- EDV/bsa (N) ?58 ?ml/m^2 ?? 65 ? 34 - , 2-p ?74 ESV/bsa (N) ?21 ?ml/m^2 ?? 26 ? 11 - , 2-p ?31 SV/bsa, ?36.4 ??ml/m^2 ?? 38.5 ? ---- 2-p EDV, MM (H) ?191 ?? ml ? 67 - Teich. ? 155 EF, MM ??(N) ?55 ?% ? >=55 Teich. EDV/bsa (N) ?73 ?ml/m^2 ?? 35 - , MM ? 75 Teich. EF, SMM (N) ?55 ?% ? >=55 Teich. E', lat (L) ?9.1 ?? cm/sec ?? 8.1 ?>=10 jennifer, ? .0 TDI E/e', ?13 ? 13 ? ---- lat jennifer, TDI A', lat ?12.1 ??cm/sec ?? 12.6 ? ---- jennifer, TDI E'/a', ? 0.76 ? 0.64 ? ---- lat jennifer, TDI S', lat ?7.1 ?? cm/sec ?? 5.7 ?---- jennifer, TDI E', med (N) ?7.0 ?? cm/sec ?? 5.9 ?>=7. jennifer, ? 0 TDI E/e', ?17 ? 18 ? ---- med jennifer, TDI A', med ?7.7 ?? cm/sec ?? 9.3 ?---- jennifer, TDI E'/a', ? 0.9 ?0.63 ? ---- med jennifer, TDI S', med ?6.6 ?? cm/sec ?? 6.0 ?---- jennifer, TDI E', ?8.1 ?? cm/sec ?? 7.0 ?---- avg, TDI E/e', ?? (H) ?15 ? 15 ? <=14 avg, TDI LVOT ? Value ?01/16/2019 Ref Peak ? 1.12 ??m/sec ?1.36 ? ---- cesilia, S Peak ? 5 ? mm Hg ?7 ?---- grad, S Ventricular ?Value ?01/16/2019 Ref septum IVS, ED (H) ?1.3 ?? cm ? 1.3 ?0.6 ?- ?1.0 Right ?Value ?01/16/2019 Ref ventricle GINA, ? 4.7 ?? cm ? 3.6 ?---- LAX TAPSE, ??(N) ?3.1 ?? cm ? 1.7 2D ? - ?3.1 TAPSE, ??(N) ?3.1 ?? cm ? 2.2 ?1.7 MM ? - ?3.1 S' ?(H) ?14.5 ??cm/sec ?? 6.0 lateral ?- ?13.4 RVOT ? Value ?01/16/2019 Ref Peak v, ?0.58 ??m/sec ?1.04 ? ---- S Left atrium ?Value ?01/16/2019 Ref AP dim, (H) ?4.6 ?? cm ? 4.5 ?3.0 ES ? - ?4.0 AP dim ??(N) ?1.8 ?? cm/m^2 ?? 1.8 ?1.5 index ?- ?2.3 Area ?(H) ?26 ?cm^2 ? 21 ? <=20 ES, A4C Area ? 25 ?cm^2 ? ---- ES, A2C SI dim, ?5.6 ?? cm ? ---- A2C Vol, ?(H) ?84 ?ml ? 18 - ES, 1-p ?58 A4C Vol/bsa (N) ?32 ?ml/m^2 ?? 12 - , ES, ?37 1-p A4C Vol, ?(H) ?89 ?ml ? 18 - ES, 1-p ?58 A2C Vol/bsa (N) ?34 ?ml/m^2 ?? 11 - , ES, ?43 1-p A2C Right atrium ?? Value ?01/16/2019 Ref Area, ?? (H) ?21 ?cm^2 ? 20 ? 10 - ES, A4C ?18 Aortic valve ?? Value ?01/16/2019 Ref Peak v, ?1.8 ?? m/sec ?1.5 ?---- S Peak ? 13 ?mm Hg ?9 ?---- grad, S LVOT/AV ?0.63 ? 0.89 ? ---- , Vpeak ratio Mitral valve ?? Value ?01/16/2019 Ref Peak E ? 1.18 ??m/sec ?1.04 ? ---- Peak A ? 0.83 ??m/sec ?0.65 ? ---- Decel ?5.03 ??cm/s^2 ?? ---- slope Decel ?235 ?? ms ? 169 ?---- time PHT ?69 ?ms ? 50 ? ---- Peak ? 6 ? mm Hg ?4 ?---- grad, D Peak ? 1.4 ?1.6 ?---- E/A ratio MVA, ? 3.2 ?? cm^2 ? 4.1 ?---- PHT MVA/bsa ?1.22 ??cm^2/m^2 1.6 ?---- , PHT Pulmonic ? Value ?01/16/2019 Ref valve Peak v, ?1.1 ?? m/sec ?1.4 ?---- S Tricuspid ?Value ?01/16/2019 Ref valve TR peak (H) ?2.9 ?? m/sec ? <=2. v ?8 Peak ? 34 ?mm Hg ? ---- RV-RA grad, S Max TR ? 2.93 ??m/sec ? ---- cesilia Aortic root ?Value ?01/16/2019 Ref Root ?(N) ?2.8 ?? cm ? <4.6 diam Ascending ?Value ?01/16/2019 Ref aorta AAo AP ? 2.8 ?? cm ? 3.4 ?---- diam, S AAo AP ? 1.1 ?? cm/m^2 ?? ---- diam/bs a, S Inferior vena ??Value ?01/16/2019 Ref cava Diam ? 2.5 ?? cm ? ---- Legend: (L) ??and ??(H) ??krunal values outside specified reference range. (N) ??moran values inside specified reference range. Reviewed and confirmed by Jennifer Mckeon [id number] Procedure Note Jennifer Mckeon MD - 07/22/2019 * [facility]* [address] [place] [address] Transthoracic Echocardiography Patient: Leoncio Rollins MR #: [id number] Account: Study Date: 07/22/2019 Gender: M Age: 44 : 1975 Room: REPLACED BY [facility] [place] PERFORMING Jennifer Mckeon ORDERING Marcelino Fox REFERRING Keon Brown ATTENDING Marcelino Fox ADMITTING Marcelino Fox Procedure:ECHO 2D COMPLETE Order: Accession W/CONTRAST (TTE) Number:[id number] Indications: Endocarditits (I38). PMH: KIM, fever, chronic renal disease, JC, weakness, DM, HTN. Study data: Height: 67in. 170.2cm. Weight: 300.3lb. 136.5kg. Study status: Routine. Procedure: Transthoracic echocardiography. Image quality was fair. Scanning was performed from the parasternal, apical, and subcostal acoustic windows. Intravenous contrast Definity and agited saline was administered. Transthoracic echocardiography. M-mode, complete 2D, complete spectral Doppler, and color Doppler. Birthdate: Patient birthdate: 1975. Age: Patient is 44yr old. Sex: gender: male. Body mass index: BMI: 47.1kg/m^2. Body surface area: BSA: 2.62m^2. Blood pressure: 108/73 Patient status: Inpatient. Study date: Study date: 07/22/2019. Study time: 02:18 PM. Location: Echo laboratory. Study Conclusions - Left ventricle: The cavity size is normal. Wall thickness was increased in a pattern of mild LVH. Systolic function was normal. The estimated ejection fraction was in the range of 50% to 55%. Wall motion was normal; there were no regional wall motion abnormalities. Features are consistent with a pseudonormal left ventricular filling pattern, with concomitant abnormal relaxation and increased filling pressure (grade 2 diastolic dysfunction). - Left atrium: The atrium is mildly dilated. - Right ventricle: Systolic function was normal by objective interpretation. - Right atrium: The atrium is mildly dilated. - Atrial septum: Echo contrast study shows no shunt. - Pulmonary arteries: Systolic pressure was moderately increased, estimated to be 50mm Hg assuming that the right atrial pressure was 15 mmHg. Cardiac Anatomy Left ventricle: - The cavity size is normal. Wall thickness was increased in a pattern of mild LVH. Systolic function was normal. The estimated ejection fraction was in the range of 50% to 55%. Wall motion was normal; there were no regional wall motion abnormalities. - Wall motion score: 1.00. - Features are consistent with a pseudonormal left ventricular filling pattern, with concomitant abnormal relaxation and increased filling pressure (grade 2 diastolic dysfunction). Aorta: Aortic root: - The aortic root is normal in size. Aortic valve: - Trileaflet; normal thickness leaflets. Mobility was not restricted. Doppler: - Transvalvular velocity is within the normal range. There is no stenosis. No regurgitation. Mitral valve: - Structurally normal valve. Mobility was not restricted. Doppler: - Transvalvular velocity is within the normal range. There is no evidence for stenosis. No regurgitation. Left atrium: - The atrium is mildly dilated. Atrial septum: - Echo contrast study shows no shunt. Pulmonary artery: - The main pulmonary artery was normal-sized. Systolic pressure was moderately increased, estimated to be 50mm Hg assuming that the right atrial pressure was 15 mmHg. Systemic veins: Inferior vena cava: The vessel was dilated. The respirophasic diameter changes were blunted (< 50%), consistent with elevated central venous pressure. Right ventricle: - The cavity size is normal. Wall thickness is normal. Systolic function was normal by objective interpretation. Pulmonic valve: Doppler: - Transvalvular velocity is within the normal range. There is no evidence for stenosis. Mild regurgitation. Tricuspid valve: - Structurally normal valve. Doppler: - Transvalvular velocity is within the normal range. No regurgitation. Right atrium: - The atrium is mildly dilated. Pericardium: - There is no pericardial effusion. Systemic veins: Inferior vena cava: - The vessel was dilated. The respirophasic diameter changes were blunted (< 50%), consistent with elevated central venous pressure. - Measurements Left Value 01/16/2019 Ref ventricle GINA, (H) 6.2 cm 5.0 4.2 LAX - 5.8 ESD, (H) 4.4 cm 3.4 2.5 LAX - 4.0 GINA/bsa (N) 2.4 cm/m^2 2.2 , LAX - 3.0 ESD/bsa (N) 1.7 cm/m^2 1.3 , LAX - 2.1 FS, LAX (N) 29 % 32 25 - 43 FS, LAX (N) 29 % 30 25 - chord 43 ESD 7.4 cm ---- major ax, A4C ESD/bsa 2.8 cm/m^2 ---- major ax, A4C GINA 7.4 cm ---- minor ax, A4C GINA/bsa 2.8 cm/m^2 ---- minor ax, A4C RACHEL, 39.1 cm^2 ---- A4C MINERVA, 22.5 cm^2 ---- A4C FAC, 42 % ---- A4C GINA 8.3 cm ---- major ax, A2C GINA/bsa 3.2 cm/m^2 ---- major ax, A2C RACHEL, 39.1 cm^2 ---- A2C MINERVA, 20.1 cm^2 ---- A2C FAC, 49 % ---- A2C ESD (H) 4.4 cm 2.5 - 4.0 ESD/bsa (N) 1.7 cm/m^2 1.3 - 2.1 PW, ED (H) 1.4 cm 1.3 0.6 - 1.0 IVS/PW, 0.96 0.97 ---- ED EDV (H) 191 ml 125 62 - 150 ESV (H) 86 ml 43 21 - 61 EF (N) 55 % 66 52 - 72 EDV/bsa (N) 73 ml/m^2 49 34 - 74 ESV/bsa (H) 33 ml/m^2 17 11 - 31 EDV, (N) 151 ml 59 - 1-p A2C 175 ESV, (H) 101 ml 15 - 1-p A2C 75 EF, 1-p (N) 67 % 48 - A2C 76 SV, 1-p 105 ml ---- A2C EDV/bsa (N) 58 ml/m^2 31 - , 1-p 87 A2C ESV/bsa (H) 39 ml/m^2 9 - , 1-p 37 A2C SV/bsa, 40.1 ml/m^2 ---- 1-p A2C EDV, (N) 148 ml 69 - 1-p A4C 185 ESV, (N) 57 ml 22 - 1-p A4C 78 EF, 1-p (N) 61 % 60 46 - A4C 74 SV, 1-p 151 ml 92 ---- A4C EDV/bsa (N) 57 ml/m^2 37 - , 1-p 93 A4C ESV/bsa (N) 22 ml/m^2 12 - , 1-p 40 A4C SV/bsa, 58 ml/m^2 36 ---- 1-p A4C EDV, (H) 151 ml 165 62 - 2-p 150 ESV, (N) 56 ml 67 21 - 2-p 61 EF, 2-p (N) 63 % 59 52 - 72 SV, 2-p 95 ml 98 ---- EDV/bsa (N) 58 ml/m^2 65 34 - , 2-p 74 ESV/bsa (N) 21 ml/m^2 26 11 - , 2-p 31 SV/bsa, 36.4 ml/m^2 38.5 ---- 2-p EDV, MM (H) 191 ml 67 - Teich. 155 EF, MM (N) 55 % >=55 Teich. EDV/bsa (N) 73 ml/m^2 35 - , MM 75 Teich. EF, SMM (N) 55 % >=55 Teich. E', lat (L) 9.1 cm/sec 8.1 >=10 jennifer, .0 TDI E/e', 13 13 ---- lat jennifer, TDI A', lat 12.1 cm/sec 12.6 ---- jennifer, TDI E'/a', 0.76 0.64 ---- lat jennifer, TDI S', lat 7.1 cm/sec 5.7 ---- jennifer, TDI E', med (N) 7.0 cm/sec 5.9 >=7. jennifer, 0 TDI E/e', 17 18 ---- med jennifer, TDI A', med 7.7 cm/sec 9.3 ---- jennifer, TDI E'/a', 0.9 0.63 ---- med jennifer, TDI S', med 6.6 cm/sec 6.0 ---- jennifer, TDI E', 8.1 cm/sec 7.0 ---- avg, TDI E/e', (H) 15 15 <=14 avg, TDI LVOT Value 01/16/2019 Ref Peak 1.12 m/sec 1.36 ---- cesilia, S Peak 5 mm Hg 7 ---- grad, S Ventricular Value 01/16/2019 Ref septum IVS, ED (H) 1.3 cm 1.3 0.6 - 1.0 Right Value 01/16/2019 Ref ventricle GINA, 4.7 cm 3.6 ---- LAX TAPSE, (N) 3.1 cm 1.7 2D - 3.1 TAPSE, (N) 3.1 cm 2.2 1.7 MM - 3.1 S' (H) 14.5 cm/sec 6.0 lateral - 13.4 RVOT Value 01/16/2019 Ref Peak v, 0.58 m/sec 1.04 ---- S Left atrium Value 01/16/2019 Ref AP dim, (H) 4.6 cm 4.5 3.0 ES - 4.0 AP dim (N) 1.8 cm/m^2 1.8 1.5 index - 2.3 Area (H) 26 cm^2 21 <=20 ES, A4C Area 25 cm^2 ---- ES, A2C SI dim, 5.6 cm ---- A2C Vol, (H) 84 ml 18 - ES, 1-p 58 A4C Vol/bsa (N) 32 ml/m^2 12 - , ES, 37 1-p A4C Vol, (H) 89 ml 18 - ES, 1-p 58 A2C Vol/bsa (N) 34 ml/m^2 11 - , ES, 43 1-p A2C Right atrium Value 01/16/2019 Ref Area, (H) 21 cm^2 20 10 - ES, A4C 18 Aortic valve Value 01/16/2019 Ref Peak v, 1.8 m/sec 1.5 ---- S Peak 13 mm Hg 9 ---- grad, S LVOT/AV 0.63 0.89 ---- , Vpeak ratio Mitral valve Value 01/16/2019 Ref Peak E 1.18 m/sec 1.04 ---- Peak A 0.83 m/sec 0.65 ---- Decel 5.03 cm/s^2 ---- slope Decel 235 ms 169 ---- time PHT 69 ms 50 ---- Peak 6 mm Hg 4 ---- grad, D Peak 1.4 1.6 ---- E/A ratio MVA, 3.2 cm^2 4.1 ---- PHT MVA/bsa 1.22 cm^2/m^2 1.6 ---- , PHT Pulmonic Value 01/16/2019 Ref valve Peak v, 1.1 m/sec 1.4 ---- S Tricuspid Value 01/16/2019 Ref valve TR peak (H) 2.9 m/sec <=2. v 8 Peak 34 mm Hg ---- RV-RA grad, S Max TR 2.93 m/sec ---- cesilia Aortic root Value 01/16/2019 Ref Root (N) 2.8 cm <4.6 diam Ascending Value 01/16/2019 Ref aorta AAo AP 2.8 cm 3.4 ---- diam, S AAo AP 1.1 cm/m^2 ---- diam/bs a, S Inferior vena Value 01/16/2019 Ref cava Diam 2.5 cm ---- Legend: (L) and (H) krunal values outside specified reference range. (N) moran values inside specified reference range. Reviewed and confirmed by Jennifer Mckeon [id number] us Marcelino Fox MD CV ECHO ORDERABLES Final Resu lt RADNET * (ABNORMAL) Hepatitis B Surface Antibody, Quantitati (07/22/2019 11:51 AM EST) HBSAB NUMBER 88.67(H) 0.00 - 7.99 mIU/mL 07/22/2019 2:16 PM EST [facility] Hep B S Ab Reactive( A) Nonreactive 07/22/2019 2:16 PM EST [facility] Serum specimen (specimen) 07/22/2019 11:51 AM EST 07/22/2019 11:56 AM EST Narrative [facility] - 07/22/2019 2:18 PM EST Individual is considered immune to HBV infection. The results of the multi-test panel are consistent with a patient who is not infected with the Hepatitis B virus and is immune to Hepatitis B infection via vaccination. Enrike Mccracken MD LAB BLOOD ORDERABLES Final Result Performing Organization Address [facility] Co de Phone Number [facility] [address] [facility]. [address] * Hepatitis B Core Antibody (07/22/2019 11:51 AM EST) Hep B Core Total Ab Nonreactive Nonreactive 07/22/2019 2:15 PM EST [facility] Comment:Health Department no tified in accordance with reportable infectious disease guidelines. Serum specimen (specimen) 07/22/2019 11:51 AM EST 07/22/2019 11:56 AM EST Narrative [facility] - 07/22/2019 2:18 PM EST A nonreactive final interpretation indicates that anti-HBc antibodies were not detected in the sample; it is possible that the individual is not infected with HBV. The results of the multi-test panel are consistent with a patient who is not infected with the Hepatitis B virus and is immune to Hepatitis B infection via vaccination. Enrike Mccracken MD LAB BLOOD ORDERABLES Final Result Performing Organization Address [facility] de Phone Number [facility] [address] [facility]. [address] * Hepatitis A IgM (07/22/2019 11:51 AM EST) Hep A IgM Nonreactive Nonreactive 07/22/2019 2:17 PM EST [facility] Serum specimen (specimen) 07/22/2019 11:51 AM EST 07/22/2019 11:56 AM EST Narrative [facility] - 07/22/2019 2:17 PM EST IgM anti-HAV not detected. Does not exclude the possibility of exposure to or infection with HAV. ??Levels of IgM anti-HAV may be below the cut-off in early infection. Enrike Mccracken MD LAB BLOOD ORDERABLES Final Result [facility] [address] * Hepatitis C Antibody (07/22/2019 11:51 AM EST) HCV Ab Nonreactive Nonreactive 07/22/2019 2:14 PM EST [facility] Comment:Health Department no tified in accordance with reportable infectious disease guidelines. Serum specimen (specimen) 07/22/2019 11:51 AM EST 07/22/2019 11:56 AM EST [facility] - 07/22/2019 2:14 PM EST Antibodies to HCV not detected; does not exclude the possibility of exposure to HCV. Enrike Mccracken MD LAB BLOOD ORDERABLES Final Result Performing Organization Address [facility] Co de Phone Number [facility] [address] * Hepatitis B surface antigen (07/22/2019 11:51 AM EST) Hep B Surface Ag Nonreactive Nonreactive 07/22/2019 2:18 PM EST [facility] Comment:Health Department no tified in accordance with reportable infectious disease guidelines. Serum specimen (specimen) 07/22/2019 11:51 AM EST 07/22/2019 11:56 AM EST [facility] - 07/22/2019 2:18 PM EST Specimen is considered negative for HBsAg. The results of the multi-test panel are consistent with a patient who is not infected with the Hepatitis B virus and is immune to Hepatitis B infection via vaccination. Enrike Mccracken MD LAB BLOOD ORDERABLES Final Result Performing Organization Address City/[facility]/ZIP Co de Phone Number [facility] [address] [facility]. [address] * Cytomegalovirus DNA, Quant, RT PCR (07/22/2019 7:52 AM EST) CMV DNA Qnt 604 IU/mL 07/24/2019 6:53 PM EST [facility] Comment:Test methodology for CMV quantification is an FDA-approved nucleic acid amplification assay. The Lower Limit of Quantitation (LLOQ) is 137 IU/mL; the linear range is 137- 9,100,000 IU/mL. The limit of Detection is (LoD) is 91 IU/mL. Log10 CMV Qn DNA PI 2.78 log 10 IU/mL 07/24/2019 6:53 PM EST [facility] Comment:CMV DNA has been det ected. Plasma specimen (specimen) 07/22/2019 7:52 AM EST 07/22/2019 9:12 AM EST Marcelino Fox MD LAB BLOOD ORDERABLES Final Re sult Performing Organization Address [facility] Co de Phone Number [facility] [address] [place] [address]. [address] * (ABNORMAL) Tacrolimus level (07/22/2019 6:16 AM EST) Tacrolimus Lvl <2.0(L) 5.0 - 20.0 ng/mL 07/22/2019 10:05 AM EST [facility] Comment: Detection limit: ??2 ng/mL. ??Performed via chemiluminescent microparticle immunoassay on the [employer] i1000. Whole blood specimen (specimen) 07/22/2019 6:16 AM EST 07/22/2019 6:30 AM EST Narrative [facility] - 07/22/2019 10:05 AM EST Should be drawn PRIOR to being given AM tacro Marcelino Fox MD LAB BLOOD ORDERABLES Final Re sult Performing Organization Address [facility] Co de Phone Number [facility] [address] [facility]. [address] * Vitamin B12 (07/22/2019 6:16 AM EST) Vitamin B-12 499 180 - 914 pg/mL 07/22/2019 7:30 AM EST [facility] Serum specimen (specimen) 07/22/2019 6:16 AM EST 07/22/2019 6:31 AM EST Marcelino Fox MD LAB BLOOD ORDERABLES Final Re sult Performing Organization Address [facility] Co de Phone Number [facility] [address] [facility]. [address] * (ABNORMAL) Hepatic Function Panel (07/22/2019 6:16 AM EST) Total Bilirubin 0.3 0.0 - 1.5 mg/dL 07/22/2019 7:10 AM EST [facility] Bilirubin, Direct 0.04 0.00 - 0.40 mg/dL 07/22/2019 7:10 AM EST [facility] AST 11(L) 13 - 39 U/L 07/22/2019 7:10 AM EST [facility] ALT 10 7 - 52 U/L 07/22/2019 7:10 AM EST [facility] Alkaline Phosphatase 81 36 - 125 U/L 07/22/2019 7:10 AM EST [facility] Total Protein 5.7(L) 6.4 - 8.9 g/dL 07/22/2019 7:10 AM EST [facility] Albumin 3.0(L) 3.5 - 5.7 g/dL 07/22/2019 7:10 AM EST [facility] Bilirubin, Indirect 0.26 0.00 - 1.10 mg/dL 07/22/2019 7:10 AM EST [facility] Plasma specimen (specimen) 07/22/2019 6:16 AM EST 07/22/2019 6:31 AM EST Marcelino Fox MD LAB BLOOD ORDERABLES Final Re sult Performing Organization Address City/[facility]/ZIP Co de Phone Number [facility] [address] [facility]. [address] * Magnesium, AM (07/22/2019 6:16 AM EST) Magnesium 1.9 1.5 - 2.5 mg/dL 07/22/2019 7:10 AM EST [facility] Plasma specimen (specimen) 07/22/2019 6:16 AM EST 07/22/2019 6:31 AM EST Marcelino Fox MD LAB BLOOD ORDERABLES Final Re sult [facility] [address] [place] [address], [facility] * (ABNORMAL) Renal Function Panel w/EGFR (07/22/2019 6:16 AM EST) Sodium 134 133 - 146 mmol/L 07/22/2019 7:10 AM [facility] Potassium 4.6 3.5 - 5.3 mmol/L 07/22/2019 7:10 AM [facility] Chloride 99 98 - 110 mmol/L 07/22/2019 7:10 AM [facility] CO2 21 21 - 33 mmol/L 07/22/2019 7:10 AM [facility] Anion Gap 14 3 - 16 mmol/L 07/22/2019 7:10 AM [facility] BUN 67(H) 7 - 25 mg/dL 07/22/2019 7:10 AM [facility] Creatinine 9.07(H) 0.60 - 1.30 mg/dL 07/22/2019 7:10 AM [facility] Glucose 191(H) 70 - 100 mg/dL 07/22/2019 7:10 AM [facility] Calcium 7.3(L) 8.6 - 10.3 mg/dL 07/22/2019 7:10 AM [facility] Phosphorus 5.9(H) 2.1 - 4.7 mg/dL 07/22/2019 7:10 AM [facility] Albumin 3.0(L) 3.5 - 5.7 g/dL 07/22/2019 7:10 AM [facility] Osmolality, Calculated 303 278 - 305 mOsm/kg 07/22/2019 7:10 AM [facility] eGFR AA CKD-EPI 7 See note. 9 7:10 AM [facility] Comment: As of 2015 the estimated GFR is calculated from serum creatinine using the Chronic Kidney Disease Epidemiology Collaboration (CKD-EPI) equation in patients 18 years and older. ??The reference range is >60 mL/min/1.73m2. ??eGFR values greater than 90 will be reported as >90mL/min/1.73m2. Reference: Isabel , Neftali LA, Ranulfo Schultz CH, Castro AF, 3rd, Feldman HI et. al. A new equation to estimate glomerular filtration rate. ??Jennifer [employer] Cutting [employer] Med. 2009:150(9):604-12 eGFR NONAA CKD-EPI 6 See note. 2018 7:10 AM EST [facility] Comment: As of 2015 the estimated GFR is calculated from serum creatinine using the Chronic Kidney Disease Epidemiology Collaboration (CKD-EPI) equation in patients 18 years and older. ??The reference range is >60 mL/min/1.73m2. ??eGFR values greater than 90 will be reported as >90mL/min/1.73m2. Reference: Isabel HARRIS, Marion Irwin CH, Zhang YL, Castro AF, 3rd, Quan MILLER, et. al. A new equation to estimate glomerular filtration rate. ??Jennifer [employer] Cutting [employer] Med. 2009:150(9):604-12 Plasma specimen (specimen) 07/22/2019 6:16 AM EST 07/22/2019 6:31 AM EST us Marcelino Fox MD LAB BLOOD ORDERABLES Final Re sult [facility] [address] [place] [address], [facility] * (ABNORMAL) CBC, AM (07/22/2019 6:16 AM EST) WBC 5.1 3.8 - 10.8 10E3/uL 07/22/2019 6:40 AM EST [facility] RBC 2.93(L) 4.20 - 5.80 10E6/uL 07/22/2019 6:40 AM EST [facility] Hemoglobin 7.9(L) 13.2 - 17.1 g/dL 07/22/2019 6:40 AM EST [facility] Hematocrit 24.3(L) 38.5 - 50.0 % 07/22/2019 6:40 AM EST [facility] MCV 82.9 80.0 - 100.0 fL 07/22/2019 6:40 AM EST [facility] MCH 27.0 27.0 - 33.0 pg 07/22/2019 6:40 AM EST [facility] MCHC 32.6 32.0 - 36.0 g/dL 07/22/2019 6:40 AM EST [facility] RDW 14.2 11.0 - 15.0 % 07/22/2019 6:40 AM EST [facility] Platelets 133(L) 140 - 400 10E3/uL 07/22/2019 6:40 AM EST [facility] MPV 7.7 7.5 - 11.5 fL 07/22/2019 6:40 AM EST [facility] Whole blood specimen (specimen) 07/22/2019 6:16 AM EST 07/22/2019 6:31 AM EST us Marcelino Fox MD LAB BLOOD ORDERABLES Final Re sult Performing Organization Address [facility]/ZIP Co de Phone Number [facility] [address] [facility]. [address] * (ABNORMAL) POC Glucose Monitoring Device (07/21/2019 7:59 PM EST) POC Glucose Monitoring Device 142(H) 70 - 100 mg/dL 07/21/2019 8:00 PM EST [facility] Blood specimen (specimen) 07/21/2019 7:59 PM EST 07/21/2019 8:00 PM EST us Marcelino Fox MD POINT OF CARE TEST ORDERABLES Final Result Performing Organization Address [facility] Co de Phone Number [facility] [address] * (ABNORMAL) POC Glucose Monitoring Device (07/21/2019 6:28 PM EST) POC Glucose Monitoring Device 135(H) 70 - 100 mg/dL 07/21/2019 6:29 PM EST [facility] Blood specimen (specimen) 07/21/2019 6:28 PM EST 07/21/2019 6:29 PM EST us Marcelino Fox MD POINT OF CARE TEST ORDERABLES Final Result Performing Organization Address City/[facility]/ZIP Co de Phone Number [facility] [address] * Folate (07/21/2019 2:19 PM EST) Folic Acid 9.90 5.90 - 24.80 ng/mL 07/21/2019 3:50 PM EST [facility] Serum specimen (specimen) 07/21/2019 2:19 PM EST 07/21/2019 3:00 PM EST Marcelino Fox MD LAB BLOOD ORDERABLES Final Re sult Performing Organization Address [facility] Co de Phone Number [facility] [address] * (ABNORMAL) Iron Studies (Iron + TIBC) (07/21/2019 2:19 PM EST) Iron 24(L) 50 - 212 ug/dL 07/21/2019 3:26 PM EST [facility] % Iron Saturation 11.9(L) 15.0 - 55.0 % 07/21/2019 3:26 PM EST [facility] TIBC 202(L) 261 - 462 ug/dL 07/21/2019 3:26 PM EST [facility] Serum specimen (specimen) 07/21/2019 2:19 PM EST 07/21/2019 3:00 PM EST Marcelino Fox MD LAB BLOOD ORDERABLES Final Re sult Performing Organization Address [facility] Co de Phone Number [facility] [address] [facility]. [address] * (ABNORMAL) Ferritin (07/21/2019 2:19 PM EST) Ferritin 433.9(H) 23.9 - 336.2 ng/mL 07/21/2019 3:45 PM EST [facility] Serum specimen (specimen) 07/21/2019 2:19 PM EST 07/21/2019 3:00 PM EST us Marcelino Fox MD LAB BLOOD ORDERABLES Final Re sult [facility] [address] [facility]. [address] * (ABNORMAL) POC Glucose Monitoring Device (07/21/2019 1:31 PM EST) POC Glucose Monitoring Device 172(H) 70 - 100 mg/dL 07/21/2019 1:32 PM EST [facility] Blood specimen (specimen) 07/21/2019 1:31 PM EST 07/21/2019 1:32 PM EST Marcelino Fox MD POINT OF CARE TEST ORDERABLES Final Result Performing Organization Address City/[facility]/ZIP Co de Phone Number [facility] [address] * (ABNORMAL) Basic Metabolic panel, AM (07/21/2019 10:47 AM EST) Sodium 134 133 - 146 mmol/L 07/21/2019 11:40 AM EST [facility] Potassium 5.2 3.5 - 5.3 mmol/L 07/21/2019 11:40 AM [facility] Chloride 100 98 - 110 mmol/L 07/21/2019 11:40 AM [facility] CO2 21 21 - 33 mmol/L 07/21/2019 11:40 AM [facility] Anion Gap 13 3 - 16 mmol/L 07/21/2019 11:40 AM [facility] BUN 63(H) 7 - 25 mg/dL 07/21/2019 11:40 AM [facility] Creatinine 8.65(H) 0.60 - 1.30 mg/dL 07/21/2019 11:40 AM [facility] Glucose 182(H) 70 - 100 mg/dL 07/21/2019 11:40 AM EST [facility] Calcium 7.6(L) 8.6 - 10.3 mg/dL 07/21/2019 11:40 AM [facility] Osmolality, Calculated 301 278 - 305 mOsm/kg 07/21/2019 11:40 AM EST [facility] eGFR AA CKD-EPI 8 See note. 9 11:40 AM EST [facility] Comment: As of 2015 [...] equation to estimate glomerular filtration rate. ??Jennifer [employer] Med. 2009:150(9):604-12 eGFR NONAA CKD-EPI 7 See note. 2018 11:40 AM EST [facility] Comment: As of 2015 [...] equation to estimate glomerular filtration rate. ??Jennifer [employer] Cutting [employer] Med. 2009:150(9):604-12 Plasma specimen (specimen) 07/21/2019 10:47 AM EST 07/21/2019 11:13 AM EST us Stan Larios DO LAB BLOOD ORDERABLES Final R esult [facility] [address] * (ABNORMAL) CBC (07/21/2019 10:47 AM EST) WBC 5.9 3.8 - 10.8 10E3/uL 07/21/2019 11:19 AM EST [facility] RBC 2.81(L) 4.20 - 5.80 10E6/uL 07/21/2019 11:19 AM EST [facility] Hemoglobin 7.5(L) 13.2 - 17.1 g/dL 07/21/2019 11:19 AM EST [facility] Hematocrit 23.5(L) 38.5 - 50.0 % 07/21/2019 11:19 AM EST [facility] MCV 83.6 80.0 - 100.0 fL 07/21/2019 11:19 AM EST [facility] MCH 26.6(L) 27.0 - 33.0 pg 07/21/2019 11:19 AM EST [facility] MCHC 31.8(L) 32.0 - 36.0 g/dL 07/21/2019 11:19 AM EST [facility] RDW 14.2 11.0 - 15.0 % 07/21/2019 11:19 AM [facility] Platelets 131(L) 140 - 400 10E3/uL 07/21/2019 11:19 AM [facility] MPV 7.7 7.5 - 11.5 fL 07/21/2019 11:19 AM EST [facility] Whole blood specimen (specimen) 07/21/2019 10:47 AM EST 07/21/2019 11:12 AM EST us Stan Larios DO LAB BLOOD ORDERABLES Final R esult Performing Organization Address City/[facility]/ZIP Co de Phone Number [facility] [address] [facility]. [address] * Vancomycin, random (07/21/2019 10:47 AM EST) Pathologist [facility] [place] Vancomycin Random 20.2 ug/mL 07/21/2019 11:48 AM EST [facility] Comment:Reference range not established for this test. Serum specimen (specimen) 07/21/2019 10:47 AM EST 07/21/2019 11:15 AM EST us Marcelino Fox MD LAB BLOOD ORDERABLES Final Re sult [facility] [address] * (ABNORMAL) POC Glucose Monitoring Device (07/21/2019 10:44 AM EST) POC Glucose Monitoring Device 184(H) 70 - 100 mg/dL 07/21/2019 10:45 AM EST [facility] Blood specimen (specimen) 07/21/2019 10:44 AM EST 07/21/2019 10:45 AM EST Marcelino Fox MD POINT OF CARE TEST ORDERABLES Final Result [facility] [address] [place] [address], [facility] * CT Abdomen and Pelvis WO IV contrast (07/21/2019 9:37 AM EST) Anatomical Region Laterality Modality Abdomen, Pelvis Computed Tomogra phy 07/21/2019 9:27 AM EST Impressions 07/21/2019 10:31 AM EST IMPRESSION: No acute findings in the abdomen/pelvis. Approved by Leeroy Jo MD on 07/21/2019 10:26 AM EST I have personally reviewed the images and I agree with this report. Report Verified by: Manolo Rosenthal MD at 07/21/2019 10:31 AM EST Narrative 07/21/2019 10:31 AM EST EXAM: CT ABDOMEN AND PELVIS WO IV CONTRAST INDICATION: recent fall with downtrending hgb, concern for retroperitoneal bleed, also has CARMEN of unknown origin, need to image kidneys due to concern for obstruction; TECHNIQUE: CT of the abdomen and pelvis was performed without intravenous contrast. Axial images were obtained with coronal and sagittal reconstructions performed at the scanner. CONTRAST: None FIELD OF VIEW: 44 cm DATE: July 21, 2019 COMPARISON: 10/20/2017 FINDINGS: Lower Chest: Minimal bibasilar atelectasis. Liver: Postsurgical changes of liver transplant. Biliary Tree: No intra or extra-hepatic biliary ductal dilatation. The gallbladder is surgically absent. Spleen: Not enlarged. Granulomas calcifications are noted. Pancreas: Normal Adrenal Glands: Normal Kidneys/Ureters/Bladder: No hydronephrosis or hydroureter. The urinary bladder is unremarkable. Gastrointestinal Tract: Small sliding-type hiatal hernia is noted. Gastric, small bowel, colonic caliber and wall thickness are within normal limits. Lymphatics: No abdominal or pelvic lymph nodes are enlarged by size criteria. Vasculature: Unremarkable. Peritoneum/Retroperitoneum: No free fluid, free air, or loculated fluid collections. Abdominal Wall/Soft Tissues: Right fat-containing inguinal hernia. Large fat-containing supraumbilical hernia with neck measuring 5.7 cm. There is extensive fat stranding along the left lateral abdominal wall. Mild anasarca. Pelvic Organs: The prostate and seminal vesicles are normal in contour. Osseous Structures: No acute osseous abnormalities or suspicious osseous lesions. Procedure Note Manolo Rosenthal MD - 07/21/2019 EXAM: CT ABDOMEN AND PELVIS WO IV CONTRAST INDICATION: recent fall with downtrending hgb, concern for retroperitonealbleed, also has CARMEN of unknown origin, need to image kidneys due toconcern for obstruction; TECHNIQUE: CT of the abdomen and pelvis was performed without intravenouscontrast. Axial images were obtained with coronal and sagittalreconstructions performed at the scanner. CONTRAST: None FIELD OF VIEW: 44 cm DATE: July 21, 2019 COMPARISON: 10/20/2017 FINDINGS: Lower Chest: Minimal bibasilar atelectasis. Liver: Postsurgical changes of liver transplant. Biliary Tree: No intra or extra-hepatic biliary ductal dilatation. Thegallbladder is surgically absent. Spleen: Not enlarged. Granulomas calcifications are noted. Pancreas: Normal Adrenal Glands: Normal Kidneys/Ureters/Bladder: No hydronephrosis or hydroureter. The urinarybladder is unremarkable. Gastrointestinal Tract: Small sliding-type hiatal hernia is noted.Gastric, small bowel, colonic caliber and wall thickness are within normallimits. Lymphatics: No abdominal or pelvic lymph nodes are enlarged by sizecriteria. Vasculature: Unremarkable. Peritoneum/Retroperitoneum: No free fluid, free air, or loculated fluidcollections. Abdominal Wall/Soft Tissues: Right fat-containing inguinal hernia. Largefat-containing supraumbilical hernia with neck measuring 5.7 cm. There isextensive fat stranding along the left lateral abdominal wall. Mildanasarca. Pelvic Organs: The prostate and seminal vesicles are normal in contour. Osseous Structures: No acute osseous abnormalities or suspicious osseouslesions. IMPRESSION: No acute findings in the abdomen/pelvis. Approved by Leeroy Jo MD on 07/21/2019 10:26 AM EST I have personally reviewed the images and I agree with this report. Report Verified by: Manolo Rosnethal MD at 07/21/2019 10:31 AM EST Stan ELLIOTTG CT ORDERABLES Final Resu lt * CT Head WO contrast (07/21/2019 9:33 AM EST) Anatomical Region Laterality Modality Head Computed Tomogra phy 07/21/2019 9:27 AM EST Impressions 07/21/2019 9:53 AM EST IMPRESSION: 1. ??No acute intracranial abnormality. Report Verified by: Eleanor Mtz at 07/21/2019 9:53 AM EST Narrative 07/21/2019 9:53 AM EST EXAM: CT HEAD WO CONTRAST INDICATION: ENCEPHALOPATHY; ?? TECHNIQUE: Axial thin section CT images of the head were obtained without contrast. Sagittal and coronal 2-D multiplanar reconstructions were performed at the scanner. COMPARISON: 10/10/2017 MRI, 10/11/2017 CT FINDINGS: The examination is mildly limited by motion artifacts. Hemorrhage and/or mass effect: None. Ventricles: Normal size and position of the ventricular system. Brain attenuation: Scattered foci of white matter low-attenuation due to chronic microvascular ischemic disease. Extraaxial spaces: Normal. Orbits, paranasal sinuses, mastoids, vascular structures: Diffuse paranasal sinus thickening. Mastoid air cells are clear. Orbits are unremarkable. Extracranial soft tissues: Normal. Calvarium and skull base: No evidence of calvarial or skull base fracture. Procedure Note Eleanor Mtz, DO - 07/21/2019 EXAM: CT HEAD WO CONTRAST INDICATION: ENCEPHALOPATHY; TECHNIQUE: Axial thin section CT images of the head were obtained withoutcontrast. Sagittal and coronal 2-D multiplanar reconstructions wereperformed at the scanner. COMPARISON: 10/10/2017 MRI, 10/11/2017 CT FINDINGS: The examination is mildly limited by motion artifacts. Hemorrhage and/or mass effect: None. Ventricles: Normal size and position of the ventricular system. Brain attenuation: Scattered foci of white matter low-attenuation due tochronic microvascular ischemic disease. Extraaxial spaces: Normal. Orbits, paranasal sinuses, mastoids, vascular structures: Diffuseparanasal sinus thickening. Mastoid air cells are clear. Orbits areunremarkable. Extracranial soft tissues: Normal. Calvarium and skull base: No evidence of calvarial or skull basefracture. IMPRESSION: 1. No acute intracranial abnormality. Report Verified by: Eleanor Mtz at 07/21/2019 9:53 AM EST us Zaynab Isaac MD IMG CT ORDERABLES Final Res ult * Prepare RBC, leukoreduced, 2 Units (07/21/2019 6:15 AM EST) Product Code Q7840K87 HCLL Unit Number [id number] HCLL Dispense Status Presumed Transfused_PT HCLL Blood Expiration Date HCLL Coding System [id number] HCLL Product Code C2543O24 HCLL Unit Number [id number] HCLL Dispense Status Presumed Transfused_PT HCLL Blood Expiration Date HCLL Coding System [id number] HCLL Specimen from blood bag from blood product (specimen) us Alicia Cervantes DO BLOOD BANK PRODUCT ORDER ASHISH Final Result HCLL * (ABNORMAL) Venous Blood Gas, Line/Syringe (07/21/2019 1:52 AM EST) PH-Line Draw 7.27(L) 7.32 - 7.42 07/21/2019 1:36 AM [facility] PCO2-Line Draw 49 41 - 51 mm Hg 07/21/2019 1:36 AM [facility] PO2-Line Draw 44(H) 25 - 40 mm Hg 07/21/2019 1:36 AM [facility] HCO3-Line Draw 23(L) 24 - 28 mmol/L 07/21/2019 1:36 AM [facility] CO2 Content-Line Draw 24(L) 25 - 29 mmol/L 07/21/2019 1:36 AM [facility] Base Excess-Line Draw -4.1(L) -2.0 - 3.0 mmol/L 07/21/2019 1:36 AM [facility] %HBO2-Line Draw 74.2(H) 40.0 - 70.0 % 07/21/2019 1:36 AM [facility] Carboxyhgb-Nemo e Draw 2.3 % 07/21/2019 1:36 AM EST [facility] Comment: CARBOXYHEMOGLOBIN (CO) REFERENCE RANGES: Non-Smokers: ??<2 % ? Smokers: ??<8 % TOXIC: >20 % Methemoglobin- Line Draw 0.7 0.0 - 1.5 % 07/21/2019 1:36 AM EST [facility] Reduced Hemoglobin-Nemo e Draw 22.8(H) 0.0 - 5.0 % 07/21/2019 1:36 AM EST [facility] Venous (qualifier value) 07/21/2019 1:52 AM EST 07/21/2019 1:35 AM EST Zaynab Isaac MD LAB BLOOD ORDERABLES Final Result Performing Organization Address [facility] Co de Phone Number [facility] [address] * ECG 12 lead (MUSE) (07/21/2019 1:50 AM EST) 07/21/2019 1:50 AM EST Narrative MUSE - 07/21/2019 1:42 PM EST Ventricular Rate: ??73 ??BPM Atrial Rate: ??73 ??BPM P-R Interval: ??174 ??ms QRS Duration: ??106 ??ms QT: ??414 ??ms QTc: ??456 ??ms P [place]: ??34 ??degrees R [place]: ??64 ??degrees T [place]: ??103 ??degrees Diagnosis Line: ??NORMAL SINUS RHYTHM ^ NORMAL ECG ^ COMPARED TO THE ECG OF 21-JUL-2019 01:49, ^ SINUS RHYTHM HAS REPLACED JUNCTIONAL RHYTHM ^ Confirmed by Carlo MCKEON, JENNIFER ([id number]) on 07/21/2019 1:42:33 PM Marcelino Fox MD ECG ORDERABLES Final Result Performing Organization Address City/[facility] Co de Phone Number MUSE * ECG 12 lead (MUSE) (07/21/2019 1:49 AM EST) 07/21/2019 1:49 AM EST Narrative MUSE - 07/21/2019 1:42 PM EST Ventricular Rate: ??73 ??BPM Atrial Rate: ??57 ??BPM QRS Duration: ??100 ??ms QT: ??406 ??ms QTc: ??447 ??ms R [place]: ??66 ??degrees T [place]: ??104 ??degrees Diagnosis Line: ??UNDETERMINED RHYTHM ^ EXCESSIVE BASELINE ARTIFACT ^ NONSPECIFIC ST SEGMENT CHANGE ^ ABNORMAL ECG ^ COMPARED TO THE ECG OF 27-JUN-2019 22:23, ^ NONSPECIFIC T WAVE CHANGE NOW EVIDENT IN INFERIOR LEADS ^ Confirmed by Carlo MCKEON TEHMINA ([id number]) on 07/21/2019 1:42:24 PM us Zaynab Isaac MD ECG ORDERABLES Final Resul t MUSE * Transfuse RBC (07/21/2019 1:41 AM EST) us Alicia Cervantes DO NURSING TREATMENT ORDERA BLES - BLOOD ADMIN Final Result EXTERNAL * (ABNORMAL) Renal Function Panel w/EGFR (07/21/2019 1:33 AM EST) Sodium 135 133 - 146 mmol/L 07/21/2019 2:29 AM EST [facility] Potassium 4.9 3.5 - 5.3 mmol/L 07/21/2019 2:29 AM EST [facility] Chloride 101 98 - 110 mmol/L 07/21/2019 2:29 AM EST [facility] CO2 21 21 - 33 mmol/L 07/21/2019 2:29 AM EST [facility] Anion Gap 13 3 - 16 mmol/L 07/21/2019 2:29 AM EST [facility] BUN 61(H) 7 - 25 mg/dL 07/21/2019 2:29 AM EST [facility] Creatinine 8.09(H) 0.60 - 1.30 mg/dL 07/21/2019 2:29 AM EST [facility] Glucose 190(H) 70 - 100 mg/dL 07/21/2019 2:29 AM EST [facility] Calcium 7.4(L) 8.6 - 10.3 mg/dL 07/21/2019 2:29 AM EST [facility] Phosphorus 5.6(H) 2.1 - 4.7 mg/dL 07/21/2019 2:29 AM EST [facility] Albumin 3.1(L) 3.5 - 5.7 g/dL 07/21/2019 2:29 AM EST [facility] Osmolality, Calculated 302 278 - 305 mOsm/kg 07/21/2019 2:29 AM EST [facility] eGFR AA CKD-EPI 8 See note. 9 2:29 AM EST [facility] Comment: As of 2015 [...] equation to estimate glomerular filtration rate. ??Jennifer [employer] Med. 2009:150(9):604-12 eGFR NONAA CKD-EPI 7 See note. 2018 2:29 AM EST [facility] Comment: As of 2015 [...] new equation to estimate glomerular filtration rate. ??Ejnnifer [employer] Med. 2009:150(9):604-12 Plasma specimen (specimen) 07/21/2019 1:33 AM EST 07/21/2019 1:50 AM EST us Zaynab Isaac MD LAB BLOOD ORDERABLES Final Result [facility] [address] [place] [id number], [facility] * Ammonia (07/21/2019 1:33 AM EST) Ammonia 56 27 - 90 ug/dL 07/21/2019 2:29 AM EST [facility] Plasma specimen (specimen) 07/21/2019 1:33 AM EST 07/21/2019 1:50 AM EST us Zaynab Isaac MD LAB BLOOD ORDERABLES Final Result [facility] [address] * (ABNORMAL) CBC, AM (07/21/2019 1:33 AM EST) WBC 5.7 3.8 - 10.8 10E3/uL 07/21/2019 2:41 AM EST [facility] RBC 2.68(L) 4.20 - 5.80 10E6/uL 07/21/2019 2:41 AM EST [facility] Hemoglobin 7.3(L) 13.2 - 17.1 g/dL 07/21/2019 2:41 AM EST [facility] Hematocrit 22.6(L) 38.5 - 50.0 % 07/21/2019 2:41 AM EST [facility] MCV 84.1 80.0 - 100.0 fL 07/21/2019 2:41 AM EST [facility] MCH 27.1 27.0 - 33.0 pg 07/21/2019 2:41 AM EST [facility] MCHC 32.3 32.0 - 36.0 g/dL 07/21/2019 2:41 AM EST [facility] RDW 14.3 11.0 - 15.0 % 07/21/2019 2:41 AM EST [facility] Platelets 131(L) 140 - 400 10E3/uL 07/21/2019 2:41 AM [facility] MPV 7.7 7.5 - 11.5 fL 07/21/2019 2:41 AM EST [facility] Whole blood specimen (specimen) 07/21/2019 1:33 AM EST 07/21/2019 1:50 AM EST us Stan Larios DO LAB BLOOD ORDERABLES Final R esult [facility] [address] * (ABNORMAL) POC Glucose Monitoring Device (07/20/2019 9:21 PM EST) POC Glucose Monitoring Device 151(H) 70 - 100 mg/dL 07/20/2019 9:23 PM EST [facility] Blood specimen (specimen) 07/20/2019 9:21 PM EST 07/20/2019 9:22 PM EST Marcelino Fox MD POINT OF CARE TEST ORDERABLES Final Result Performing Organization Address City/[facility]/ZIP Co de Phone Number [facility] [address] [facility]. [address] * Transfuse RBC (07/20/2019 8:38 PM EST) us Alicia Cervantes DO NURSING TREATMENT ORDERA BLES - BLOOD ADMIN Final Result Performing Organization Address City/[facility]/ZIP Co de Phone Number EXTERNAL * (ABNORMAL) POC Glucose Monitoring Device (07/20/2019 5:03 PM EST) POC Glucose Monitoring Device 135(H) 70 - 100 mg/dL 07/20/2019 5:04 PM EST [facility] Blood specimen (specimen) 07/20/2019 5:03 PM EST 07/20/2019 5:04 PM EST Marcelino Fox MD POINT OF CARE TEST ORDERABLES Final Result Performing Organization Address [facility] Co de Phone Number [facility] [address] [facility]. [address] * (ABNORMAL) CMV IgM Antibody (07/20/2019 3:04 PM EST) CMV IgM Positive( A) Negative 07/21/2019 10:49 AM EST [facility] Comment:Result indicates the presence of detectable CMV IgM antibodies. A Positive result is generally indicative of acute infection, reactivation or persistent IgM production. CMV IGM NUM 73.50(H) 0.00 - 29.99 AU/mL 07/21/2019 10:49 AM EST [facility] Serum specimen (specimen) 07/20/2019 3:04 PM EST 07/20/2019 3:18 PM EST Stan Larios DO LAB BLOOD ORDERABLES Final R esult [facility] [address] [facility]. [address] * (ABNORMAL) CMV IgG Antibody (07/20/2019 3:04 PM EST) CMV IgG Positive(A ) Negative 07/21/2019 10:38 AM EST [facility] CMV IGG NUM 10.00(H) 0.00 - 0.59 U/mL 07/21/2019 10:38 AM EST [facility] Serum specimen (specimen) 07/20/2019 3:04 PM EST 07/20/2019 3:18 PM EST Stan Larios [employer] LAB BLOOD ORDERABLES Final R esult Performing Organization Address [facility]/ZIP Co de Phone Number [facility] [address] [facility]. [address] * (ABNORMAL) [place] Virus Ab Panel (07/20/2019 3:04 PM EST) EBV VCA IgG Positive(A) Negative 07/21/2019 10:42 AM EST [facility] EBV IGG NUM 167.00(H) 0.00 - 17.99 U/mL 07/21/2019 10:42 AM EST [facility] EBV VCA IgM Negative Negative 07/21/2019 10:42 AM EST [facility] EBV IGM NUM 10.00 0.00 - 35.99 U/mL 07/21/2019 10:42 AM EST [facility] Serum specimen (specimen) 07/20/2019 3:04 PM EST 07/20/2019 3:18 PM EST Stan Larios DO LAB BLOOD ORDERABLES Final R esult [facility] [address] [facility]. [address] * HSV Type 1 & 2 Ab, IgM (07/20/2019 3:04 PM EST) Pathologist [facility] [place] HSV I/II Ab Titer <0.91 0.00 - 0.90 Ratio 07/22/2019 3:14 PM EST [facility] Comment: ? Negative ?<0.91 ? Equivocal 0.91 - 1.09 ? Positive ?>1.09 Serum specimen (specimen) 07/20/2019 3:04 PM EST 07/23/2019 10:07 AM EST Narrative [facility] - 07/23/2019 10:07 AM EST PERFORMED AT: [place] [address] FRONT END SOFTWARE DEVELOPER: Octavio Best, PhD ?? PHONE: [phone] Stan Larios DO LAB BLOOD ORDERABLES Final R esult Performing Organization Address [facility] de Phone Number [facility] [address] * Antibody identification (07/20/2019 2:04 PM EST) Pathologist [facility] [place] Antibody Id. #1 Anti-C 07/20/2019 1:59 PM EST [facility] Antibody Id. #2 Anti-D 07/20/2019 1:59 PM EST [facility] Blood specimen (specimen) 07/20/2019 2:04 PM EST 07/20/2019 2:04 PM EST us Alicia Cervantes DO BLOOD BANK TEST ORDERABL ES Final Result Performing Organization Address [facility]/ZIP Co de Phone Number [facility] [address] * ELIUD Anti-IgG (07/20/2019 1:57 PM EST) ELIUD IgG Negative 07/20/2019 1:57 PM EST [facility] Blood specimen (specimen) 07/20/2019 1:57 PM EST 07/20/2019 1:57 PM EST Alicia Cervantes DO BLOOD BANK TEST ORDERABL ES Final Result Performing Organization Address [facility] Co de Phone Number [facility] [address] [place] [address]. [address] * Chloride, urine, random (07/20/2019 1:39 PM EST) Chloride, Ur 22 mmol/L 07/20/2019 4:49 PM EST [facility] Comment:Reference range not established for this test. Urine specimen (specimen) 07/20/2019 1:39 PM EST 07/20/2019 4:03 PM EST Stan Larios DO URINE ORDERABLES Final Resul t Performing Organization Address [facility] Co de Phone Number [facility] [address] [place] [address]. [address] * Potassium, urine, random (07/20/2019 1:39 PM EST) Potassium Urine Random 56.0 mmol/L 07/20/2019 4:49 PM EST [facility] Comment:Reference range not established for this test. Urine specimen (specimen) 07/20/2019 1:39 PM EST 07/20/2019 4:03 PM EST Stan Larios DO URINE ORDERABLES Final Resul t Performing Organization Address [facility] Co de Phone Number [facility] [address] [place] [address] [address] * Sodium, urine, random (07/20/2019 1:39 PM EST) Sodium, Ur 21 mmol/L 07/20/2019 4:49 PM EST [facility] Comment:Reference range not established for this test. Urine specimen (specimen) 07/20/2019 1:39 PM EST 07/20/2019 4:03 PM EST Stan Larios DO URINE ORDERABLES Final Resul t Performing Organization Address [facility] de Phone Number [facility] [address] [facility]. [address] * Protein / Creatinine Ratio, Urine (07/20/2019 1:39 PM EST) Creatinine, Urine 163.80 mg/dL 07/20/2019 4:49 PM EST [facility] Comment:Reference range not established for this test. Total Protein, Ur >1000 mg/dL 07/20/2019 4:49 PM EST [facility] Comment:Reference range not established for this test. Prot/Creat Ratio, Ur See Note ratio 07/20/2019 4:49 PM EST [facility] Urine specimen (specimen) 07/20/2019 1:39 PM EST 07/20/2019 4:03 PM EST Narrative [facility] - 07/20/2019 4:49 PM EST Unable to calculate result either because contributing result(s) are outside of reportable range or are not available. Stan Larios DO URINE ORDERABLES Final Resul t Performing Organization Address [facility] de Phone Number [facility] [address] [facility]. [address] * Influenza A+B PCR (07/20/2019 1:39 PM EST) Influenza A Negative Negative, Invalid 07/20/2019 4:42 PM EST [facility] Influenza B Negative Negative, Invalid 07/20/2019 4:42 PM EST [facility] Comment: Test methodology for Influenza PCR is a FDA approved DNA amplification Assay. ??If results are negative or invalid and a Respiratory Viral Panel by PCR is desired, call the [facility] within 72 hours of collection and order a RESPPCR (Lab 4023). ??Result may be invalid due to inhibitory substances in the specimen. Nasopharyngeal swab (specimen) NASOPHARYNGEAL STRUCTURE / Unknown 07/20/2019 1:39 PM EST 07/20/2019 4:06 PM EST us Stan Larios DO BODY FLUIDS AND STOOLS ORDER ASHISH Final Result Performing Organization Address City/State/[facility] Co de Phone Number [facility] [address] * (ABNORMAL) EBV Acute Infection Antibodies (07/20/2019 12:47 PM EST) EBV Interp. Comment 07/22/2019 12:04 AM EST [facility] Comment: ? EBV Interpretation Chart Interpretation ?? EBV-IgM ??EA(D)-IgG ??VCA-IgG ??EBNA-IgG EBV Seronegative ?- ?- ? - ?- Early Phase ? + ?- ? - ?- Acute Primary ? + ? +or- ? + ?- Infection Convalescence/Past ??- ? +or- ? + ?+ Infection Reactivated ?+or- ? +or- ? + ?+ Infection ? + Antibody Present ?- Antibody Absent Effective August 19, 2019, [id number] EBV Acute Infection ??Antibodies and [id number] EBV, Chronic/Active Infection ??will be made non-orderable. [facility] offers order ??code [id number] EBV Antibody Profile. EBV Ab VCA, IgM <36.0 0.0 - 35.9 U/mL 07/22/2019 3:30 PM EST [facility] Comment: ? Negative ?<36.0 ? Equivocal 36.0 - 43.9 ? Positive ?>43.9 EBV Early Antigen Ab, IgG <9.0 0.0 - 8.9 U/mL 07/22/2019 3:30 PM EST [facility] Comment: ? Negative ?< 9.0 ? Equivocal ??9.0 - 10.9 ? Positive ?>10.9 EBV Ab VCA, IgG 199.0(H) 0.0 - 17.9 U/mL 07/22/2019 3:30 PM EST [facility] Comment: ? Negative ?<18.0 ? Equivocal 18.0 - 21.9 ? Positive ?>21.9 EBV Nuclear Antigen Ab, IgG 180.0(H) 0.0 - 17.9 U/mL 07/22/2019 3:30 PM EST [facility] Comment: ? Negative ?<18.0 ? Equivocal 18.0 - 21.9 ? Positive ?>21.9 Serum specimen (specimen) 07/20/2019 12:47 PM EST 07/23/2019 10:07 AM EST Narrative [facility] - 07/23/2019 10:07 AM EST PERFORMED AT: [place] [address] FRONT END SOFTWARE DEVELOPER: Octavio Best, PhD ?? PHONE: [phone] us Stan Larios DO LAB BLOOD ORDERABLES Final R esult Performing Organization Address [facility] de Phone Number [facility] [address] [facility]. [address] * (ABNORMAL) POC Glucose Monitoring Device (07/20/2019 12:14 PM EST) Pathologist [facility] [place] POC Glucose Monitoring Device 150(H) 70 - 100 mg/dL 07/20/2019 12:15 PM EST [facility] Blood specimen (specimen) 07/20/2019 12:14 PM EST 07/20/2019 12:15 PM EST us Marcelino Fox MD POINT OF CARE TEST ORDERABLES Final Result Performing Organization Address [facility] de Phone Number [facility] [address] * (ABNORMAL) CK (07/20/2019 9:52 AM EST) Total CK 370(H) 30 - 223 U/L 07/20/2019 10:30 AM EST [facility] Plasma specimen (specimen) 07/20/2019 9:52 AM EST 07/20/2019 10:09 AM EST Stan Larios LAB BLOOD ORDERABLES Final R esult Performing Organization Address [facility] Co de Phone Number [facility] [address] [place] [address]. [address] * (ABNORMAL) Fibrinogen (07/20/2019 9:52 AM EST) Fibrinogen 454(H) 218 - 406 mg/dL 07/20/2019 10:29 AM EST [facility] Plasma specimen (specimen) 07/20/2019 9:52 AM EST 07/20/2019 10:09 AM EST Stan Larios DO LAB BLOOD ORDERABLES Final R esult Performing Organization Address [facility] Co de Phone Number [facility] [address] [place] [address]. [address] * (ABNORMAL) LDH, Lactate dehydrogenase (07/20/2019 9:52 AM EST) LD 340(H) 110 - 270 U/L 07/20/2019 10:31 AM EST [facility] Plasma specimen (specimen) 07/20/2019 9:52 AM EST 07/20/2019 10:09 AM EST Stan Larios LAB BLOOD ORDERABLES Final R esult Performing Organization Address City/[facility] Co de Phone Number [facility] [address] [place] [address]. [address] * (ABNORMAL) Haptoglobin (07/20/2019 9:52 AM EST) Haptoglobin 226(H) 44 - 215 mg/dL 07/20/2019 10:37 AM EST [facility] Serum specimen (specimen) 07/20/2019 9:52 AM EST 07/20/2019 10:09 AM EST Stan Larios DO LAB BLOOD ORDERABLES Final R esult Performing Organization Address [facility]/ZIP Co de Phone Number [facility] [address] [facility]. [address] * Antibody Screen (07/20/2019 9:52 AM EST) Antibody Screen Positive 07/20/2019 11:46 AM EST [facility] Blood specimen (specimen) 07/20/2019 9:52 AM EST 07/20/2019 10:27 AM EST Narrative [facility] - 07/20/2019 12:02 PM EST Testing performed by [facility] Alicia Cervantes BLOOD BANK TEST ORDERABL ES Final Result Performing Organization Address [facility] Co de Phone Number [facility] [address] [place] [address]. [address] * ABO/Rh (07/20/2019 9:52 AM EST) ABO Grouping O 07/20/2019 11:46 AM EST [facility] Rh Type Negative 07/20/2019 11:46 AM EST [facility] Blood specimen (specimen) 07/20/2019 9:52 AM EST 07/20/2019 10:27 AM EST Alicia Cervantes BLOOD BANK TEST ORDERABL ES Final Result Performing Organization Address [facility] Co de Phone Number [facility] [address] * (ABNORMAL) POC Glucose Monitoring Device (07/20/2019 8:33 AM EST) POC Glucose Monitoring Device 195(H) 70 - 100 mg/dL 07/20/2019 8:33 AM EST [facility] Blood specimen (specimen) 07/20/2019 8:33 AM EST 07/20/2019 8:33 AM EST Marcelino Fox MD POINT OF CARE TEST ORDERABLES Final Result Performing Organization Address City/[facility] Co de Phone Number [facility] [address] * (ABNORMAL) Hepatic Function Panel (07/20/2019 6:28 AM EST) Total Bilirubin 0.3 0.0 - 1.5 mg/dL 07/20/2019 10:57 PM EST [facility] Bilirubin, Direct 0.07 0.00 - 0.40 mg/dL 07/20/2019 10:57 PM EST [facility] AST 15 13 - 39 U/L 07/20/2019 10:57 PM EST [facility] ALT 8 7 - 52 U/L 07/20/2019 10:57 PM EST [facility] Alkaline Phosphatase 87 36 - 125 U/L 07/20/2019 10:57 PM EST [facility] Total Protein 5.9(L) 6.4 - 8.9 g/dL 07/20/2019 10:57 PM EST [facility] Albumin 3.2(L) 3.5 - 5.7 g/dL 07/20/2019 10:57 PM EST [facility] Bilirubin, Indirect 0.23 0.00 - 1.10 mg/dL 07/20/2019 10:57 PM EST [facility] Plasma specimen (specimen) 07/20/2019 6:28 AM EST 07/20/2019 1:25 PM EST us Marcelino Fox MD LAB BLOOD ORDERABLES Final Re sult Performing Organization Address [facility] Co de Phone Number [facility] [address] [facility] [place]. [address] * (ABNORMAL) Tacrolimus level (07/20/2019 6:28 AM EST) Tacrolimus Lvl 2.2(L) 5.0 - 20.0 ng/mL 07/20/2019 2:01 PM EST [facility] Comment: Detection limit: ??2 ng/mL. ??Performed via chemiluminescent microparticle immunoassay on the [employer] i1000. Whole blood specimen (specimen) 07/20/2019 6:28 AM EST 07/20/2019 6:44 AM EST us Zaynab Isaac MD LAB BLOOD ORDERABLES Final Result [facility] [address] * (ABNORMAL) CBC (07/20/2019 6:28 AM EST) WBC 5.5 3.8 - 10.8 10E3/uL 07/20/2019 7:01 AM EST [facility] RBC 2.52(L) 4.20 - 5.80 10E6/uL 07/20/2019 7:01 AM EST [facility] Hemoglobin 6.7(L) 13.2 - 17.1 g/dL 07/20/2019 7:01 AM EST [facility] Hematocrit 21.0(L) 38.5 - 50.0 % 07/20/2019 7:01 AM [facility] MCV 83.5 80.0 - 100.0 fL 07/20/2019 7:01 AM EST [facility] MCH 26.6(L) 27.0 - 33.0 pg 07/20/2019 7:01 AM EST [facility] MCHC 31.9(L) 32.0 - 36.0 g/dL 07/20/2019 7:01 AM EST [facility] RDW 14.2 11.0 - 15.0 % 07/20/2019 7:01 AM [facility] Platelets 134(L) 140 - 400 10E3/uL 07/20/2019 7:01 AM EST [facility] MPV 7.8 7.5 - 11.5 fL 07/20/2019 7:01 AM EST [facility] Whole blood specimen (specimen) 07/20/2019 6:28 AM EST 07/20/2019 6:44 AM EST us Zaynab Isaac MD LAB BLOOD ORDERABLES Final Result [facility] [address] * (ABNORMAL) Renal Function Panel w/EGFR (07/20/2019 6:28 AM EST) Sodium 132(L) 133 - 146 mmol/L 07/20/2019 7:11 AM EST [facility] Potassium 4.9 3.5 - 5.3 mmol/L 07/20/2019 7:11 AM [facility] Chloride 101 98 - 110 mmol/L 07/20/2019 7:11 AM [facility] CO2 19(L) 21 - 33 mmol/L 07/20/2019 7:11 AM EST [facility] Anion Gap 12 3 - 16 mmol/L 07/20/2019 7:11 AM [facility] BUN 57(H) 7 - 25 mg/dL 07/20/2019 7:11 AM [facility] Creatinine 7.70(H) 0.60 - 1.30 mg/dL 07/20/2019 7:11 AM [facility] Glucose 220(H) 70 - 100 mg/dL 07/20/2019 7:11 AM [facility] Calcium 7.4(L) 8.6 - 10.3 mg/dL 07/20/2019 7:11 AM [facility] Phosphorus 4.1 2.1 - 4.7 mg/dL 07/20/2019 7:11 AM [facility] Albumin 3.2(L) 3.5 - 5.7 g/dL 07/20/2019 7:11 AM EST [facility] Osmolality, Calculated 297 278 - 305 mOsm/kg 07/20/2019 7:11 AM [facility] eGFR AA CKD-EPI 9 See note. 9 7:11 AM [facility] Comment: As of 2015 the estimated [...] equation to estimate glomerular filtration rate. ??Jennifer [employer] Med. 2009:150(9):604-12 eGFR NONAA CKD-EPI 8 See note. 2018 7:11 AM EST [facility] Comment: As of [...] equation to estimate glomerular filtration rate. ??Jennifer [employer] Med. 2009:150(9):604-12 Plasma specimen (specimen) 07/20/2019 6:28 AM EST 07/20/2019 6:44 AM EST Zaynab Isaac MD LAB BLOOD ORDERABLES Final Result Performing Organization Address [facility] Co de Phone Number [facility] [address] * Urine culture (07/20/2019 6:06 AM EST) Culture Result <1,000 cfu/mL [facility] Culture Result Mixed Skin/Urogeni poli Alfonso. No Further Workup. [facility] Mid-stream urine specimen (specimen) URINE SPECIMEN / Unknown 07/20/2019 6:06 AM EST 07/20/2019 8:19 AM EST us Zaynab Isaca MD MICROBIOLOGY - GENERAL [facility] Final Result Performing Organization Address [facility] Co de Phone Number [facility] [address] * (ABNORMAL) Urinalysis w/Reflex to Microscop, No Culture (07/20/2019 6:06 AM EST) Color, UA Yellow Yellow,Straw 07/20/2019 6:57 AM EST [facility] Clarity, UA Cloudy(A) Clear 07/20/2019 6:57 AM EST [facility] Specific [place], UA 1.017 1.005 - 1.035 07/20/2019 6:57 AM EST [facility] pH, UA 6.0 5.0 - 8.0 07/20/2019 6:57 AM EST [facility] Protein, UA >=500(A) Negative mg/dL 07/20/2019 6:57 AM EST [facility] Glucose, UA 150(A) Negative mg/dL 07/20/2019 6:57 AM EST [facility] Ketones, UA Negative Negative mg/dL 07/20/2019 6:57 AM EST [facility] Bilirubin, UA Negative Negative 07/20/2019 6:57 AM EST [facility] Blood, UA Small(A) Negative 07/20/2019 6:57 AM EST [facility] Nitrite, UA Negative Negative 07/20/2019 6:57 AM EST [facility] Urobilinogen, UA <2.0 0.2 - 1.9 mg/dL 07/20/2019 6:57 AM EST [facility] Leukocyte Esterase, UA Negative Negative 07/20/2019 6:57 AM [facility] RBC, UA 6(H) 0 - 3 /HPF 07/20/2019 6:57 AM EST [facility] WBC, UA 1 0 - 5 /HPF 07/20/2019 6:57 AM EST [facility] Squam Epithel, UA 1 0 - 5 /HPF 07/20/2019 6:57 AM [facility] Bacteria, UA Few(A) None Seen /HPF 07/20/2019 6:57 AM EST [facility] Mucus, UA Present(A) None Seen /HPF 07/20/2019 6:57 AM EST [facility] Urine specimen (specimen) 07/20/2019 6:06 AM EST 07/20/2019 6:15 AM EST us Zaynab Isaac MD URINE ORDERABLES Final Resu lt [facility] [address] [place] [address], [facility] * Urea nitrogen, random urine (07/20/2019 6:06 AM EST) Urea Nitrogen, Ur 451 Not Estab. mg/dL 07/21/2019 4:15 AM EST [facility] Urine specimen (specimen) 07/20/2019 6:06 AM EST 07/21/2019 6:36 AM EST Narrative [facility] - 07/21/2019 6:36 AM EST PERFORMED AT: [facility] [id number] FRONT END SOFTWARE DEVELOPER: Octavio Best, PhD ?? PHONE: [phone] Zaynab Isaac MD URINE ORDERABLES Final Resu lt Performing Organization Address [facility] Co de Phone Number [facility] [address] [facility]. [address] * Sodium, Urine, Random (07/20/2019 6:06 AM EST) Sodium, Ur 34 mmol/L 07/20/2019 6:29 AM EST [facility] Comment:Reference range not established for this test. Urine specimen (specimen) 07/20/2019 6:06 AM EST 07/20/2019 6:15 AM EST Zaynab Isaac MD URINE ORDERABLES Final Resu lt Performing Organization Address [facility] Co de Phone Number [facility] [address] [facility]. [address] * X-ray Portable Chest (07/20/2019 5:09 AM EST) Anatomical Region Laterality Modality Chest Radiographic Sobia ging 07/20/2019 4:47 AM EST Impressions 07/20/2019 6:13 AM EST IMPRESSION: Negative portable chest. Approved by Felice Arnett MD on 07/20/2019 5:57 AM EST I have personally reviewed the images and I agree with this report. Report Verified by: William Mathew MD at 07/20/2019 6:13 AM EST Narrative 07/20/2019 6:13 AM EST EXAM: XR PORTABLE CHEST INDICATION: Dyspnea, unspecified TECHNIQUE: Portable AP view of the chest. COMPARISON: 01/12/2019 FINDINGS: Exam was performed on 07/20/2019 4:47 AM EST. Medical Devices: None. Heart and Mediastinum: Cardiomediastinal silhouette is within normal limits. Lungs and Pleura: Lungs are clear with no focal consolidations or pleural effusions. No evidence for pneumothorax. Bones: No acute osseous abnormalities. Procedure Note William Mathew MD - 07/20/2019 EXAM: XR PORTABLE CHEST INDICATION: Dyspnea, unspecified TECHNIQUE: Portable AP view of the chest. COMPARISON: 01/12/2019 FINDINGS: Exam was performed on 07/20/2019 4:47 AM EST. Medical Devices: None. Heart and Mediastinum: Cardiomediastinal silhouette is within normallimits. Lungs and Pleura: Lungs are clear with no focal consolidations or pleuraleffusions. No evidence for pneumothorax. Bones: No acute osseous abnormalities. IMPRESSION: Negative portable chest. Approved by Felice Arnett MD on 07/20/2019 5:57 AM EST I have personally reviewed the images and I agree with this report. Report Verified by: William Mathew MD at 07/20/2019 6:13 AM EST Alicia Cervantes DO IMG DIAGNOSTIC IMAGING O RDERABLES Final Result * Blood culture-Peripheral (07/20/2019 1:28 AM EST) Culture Result No Growth After 5 Days [facility] Blood specimen (specimen) BLOOD SPECIMEN / Unknown 07/20/2019 1:28 AM EST 07/20/2019 5:16 AM EST Zaynab Isaac MD MICROBIOLOGY - [facility] Final Result Performing Organization Address [facility]/ZIP Co de Phone Number [facility] [address] * Lactic Acid (07/20/2019 12:21 AM EST) Lactate 0.7 0.5 - 2.2 mmol/L 07/20/2019 12:50 AM EST [facility] Plasma specimen (specimen) 07/20/2019 12:21 AM EST 07/20/2019 12:32 AM EST Marcelino Fox MD LAB BLOOD ORDERABLES Final Re sult Performing Organization Address City/[facility]/ZIP Co de Phone Number [facility] [address] * Blood culture-Peripheral (07/19/2019 11:57 PM EST) Culture Result No Growth After 5 Days [facility] Blood specimen (specimen) BLOOD SPECIMEN / Unknown 07/19/2019 11:57 PM EST 07/20/2019 5:16 AM EST Zaynab Isaac MD MICROBIOLOGY - GENERAL ORDE RABLES Final Result Performing Organization Address [facility] de Phone Number [facility] [address] * Protime-INR (07/19/2019 11:57 PM EST) Protime 15.0 12.1 - 15.1 seconds 07/20/2019 12:52 AM EST [facility] Comment:Effective 10/11/2018, the PT and PTMIX reference range has changed from 11.8-14.8 sec to 12.1-15.1 sec. INR ranges are not affected. INR 1.1 0.9 - 1.1 07/20/2019 12:52 AM EST [facility] Comment: RECOMMENDED THERAPEUTIC RANGES USING INR : ?Stable oral anticoagulant therapy: ? 2.0 - 3.0 ?Mechanical prosthetic heart valve: ? 2.5 - 3.5 ?Recurrent acute myocardial infarction: ? 2.5 - 3.5 Plasma specimen (specimen) 07/19/2019 11:57 PM EST 07/20/2019 12:31 AM EST us Zaynab Isaac MD LAB BLOOD ORDERABLES Final Result Performing Organization Address [facility] Co de Phone Number [facility] [address] [facility]. [address] * (ABNORMAL) Hepatic Function Panel (07/19/2019 11:57 PM EST) Total Bilirubin 0.3 0.0 - 1.5 mg/dL 07/20/2019 1:02 AM EST [facility] Bilirubin, Direct 0.05 0.00 - 0.40 mg/dL 07/20/2019 1:02 AM EST [facility] AST 12(L) 13 - 39 U/L 07/20/2019 1:02 AM EST [facility] ALT 6(L) 7 - 52 U/L 07/20/2019 1:02 AM EST [facility] Alkaline Phosphatase 98 36 - 125 U/L 07/20/2019 1:02 AM EST [facility] Total Protein 5.8(L) 6.4 - 8.9 g/dL 07/20/2019 1:02 AM [facility] Albumin 3.3(L) 3.5 - 5.7 g/dL 07/20/2019 1:02 AM [facility] Bilirubin, Indirect 0.25 0.00 - 1.10 mg/dL 07/20/2019 1:02 AM EST [facility] Plasma specimen (specimen) 07/19/2019 11:57 PM EST 07/20/2019 12:31 AM EST Zaynab Isaac MD LAB BLOOD ORDERABLES Final Result Performing Organization Address [facility] Co de Phone Number [facility] [address] [facility]. [address] * Magnesium (07/19/2019 11:57 PM EST) Magnesium 1.7 1.5 - 2.5 mg/dL 07/20/2019 1:02 AM EST [facility] Plasma specimen (specimen) 07/19/2019 11:57 PM EST 07/20/2019 12:31 AM EST Zaynab Isaac MD LAB BLOOD ORDERABLES Final Result Performing Organization Address City/[facility]/ZIP Co de Phone Number [facility] [address] * (ABNORMAL) Renal Function Panel w/EGFR (07/19/2019 11:57 PM EST) Sodium 134 133 - 146 mmol/L 07/20/2019 1:02 AM [facility] Potassium 5.4(H) 3.5 - 5.3 mmol/L 07/20/2019 1:02 AM [facility] Chloride 101 98 - 110 mmol/L 07/20/2019 1:02 AM [facility] CO2 19(L) 21 - 33 mmol/L 07/20/2019 1:02 AM [facility] Anion Gap 14 3 - 16 mmol/L 07/20/2019 1:02 AM [facility] BUN 58(H) 7 - 25 mg/dL 07/20/2019 1:02 AM [facility] Creatinine 7.45(H) 0.60 - 1.30 mg/dL 07/20/2019 1:02 AM [facility] Glucose 270(H) 70 - 100 mg/dL 07/20/2019 1:02 AM [facility] Calcium 7.3(L) 8.6 - 10.3 mg/dL 07/20/2019 1:02 AM [facility] Phosphorus 4.9(H) 2.1 - 4.7 mg/dL 07/20/2019 1:02 AM [facility] Albumin 3.3(L) 3.5 - 5.7 g/dL 07/20/2019 1:02 AM [facility] Osmolality, Calculated 304 278 - 305 mOsm/kg 07/20/2019 1:02 AM [facility] eGFR AA CKD-EPI 9 See note. 9 1:02 AM [facility] Comment: As of 2015 the estimated [...] equation to estimate glomerular filtration rate. ??Jennifer [employer] Med. 2009:150(9):604-12 eGFR NONAA CKD-EPI 8 See note. 2018 1:02 AM EST [facility] Comment: As of [...] equation to estimate glomerular filtration rate. ??Jennifer [employer] Med. 2009:150(9):604-12 Plasma specimen (specimen) 07/19/2019 11:57 PM EST 07/20/2019 12:31 AM EST us Zaynab Isaac MD LAB BLOOD ORDERABLES Final Result Performing Organization Address City/State/[facility] Co de Phone Number [facility] [address] * Differential (07/19/2019 11:57 PM EST) Neutrophils Relative 70.4 40.0 - 80.0 % 07/20/2019 12:40 AM EST [facility] Lymphocytes Relative 17.2 15.0 - 45.0 % 07/20/2019 12:40 AM EST [facility] Monocytes Relative 10.9 0.0 - 12.0 % 07/20/2019 12:40 AM EST [facility] Eosinophils Relative 1.4 0.0 - 8.0 % 07/20/2019 12:40 AM EST [facility] Basophils Relative 0.1 0.0 - 1.0 % 07/20/2019 12:40 AM EST [facility] nRBC 0 0 - 0 /100 WBC 07/20/2019 12:40 AM EST [facility] Neutrophils Absolute 4,998 1,500 - 7,800 /uL 07/20/2019 12:40 AM EST [facility] Lymphocytes Absolute 1,221 850 - 3,900 /uL 07/20/2019 12:40 AM EST [facility] Monocytes Absolute 774 200 - 950 /uL 07/20/2019 12:40 AM EST [facility] Eosinophils Absolute 99 15 - 500 /uL 07/20/2019 12:40 AM EST [facility] Basophils Absolute 7 0 - 200 /uL 07/20/2019 12:40 AM EST [facility] Whole blood specimen (specimen) 07/19/2019 11:57 PM EST 07/20/2019 12:31 AM EST us Zaynab Isaac MD LAB BLOOD ORDERABLES Final Result Performing Organization Address City/State/[facility] Co de Phone Number [facility] [address] [place], [place] [address] * (ABNORMAL) CBC (07/19/2019 11:57 PM EST) WBC 7.1 3.8 - 10.8 10E3/uL 07/20/2019 12:40 AM [facility] RBC 2.72(L) 4.20 - 5.80 10E6/uL 07/20/2019 12:40 AM [facility] Hemoglobin 7.4(L) 13.2 - 17.1 g/dL 07/20/2019 12:40 AM [facility] Hematocrit 23.0(L) 38.5 - 50.0 % 07/20/2019 12:40 AM [facility] MCV 84.3 80.0 - 100.0 fL 07/20/2019 12:40 AM [facility] MCH 27.0 27.0 - 33.0 pg 07/20/2019 12:40 AM [facility] MCHC 32.0 32.0 - 36.0 g/dL 07/20/2019 12:40 AM [facility] RDW 14.0 11.0 - 15.0 % 07/20/2019 12:40 AM [facility] Platelets 149 140 - 400 10E3/uL 07/20/2019 12:40 AM [facility] MPV 7.7 7.5 - 11.5 fL 07/20/2019 12:40 AM [facility] Whole blood specimen (specimen) 07/19/2019 11:57 PM EST 07/20/2019 12:31 AM EST Zaynab Isaac MD LAB BLOOD ORDERABLES Final Result [facility] [address] * (ABNORMAL) POC Glucose Monitoring Device (07/19/2019 11:45 PM EST) POC Glucose Monitoring Device 272(H) 70 - 100 mg/dL 07/19/2019 11:46 PM EST [facility] Blood specimen (specimen) 07/19/2019 11:45 PM EST 07/19/2019 11:45 PM EST us Marcelino Fox MD POINT OF CARE TEST ORDERABLES Final Result Performing Organization Address City/[facility]/ZIP Co de Phone Number [facility] [address] * Occult Blood (07/19/2019 2:35 PM EST) Occult Blood, Stool #1 Negative Negative 07/20/2019 2:44 PM EST [facility] Stool specimen (specimen) 07/19/2019 2:35 PM EST 07/20/2019 2:35 PM EST us Marcelino Fox MD BODY FLUIDS AND STOOLS ORDERA BLES Final Result Performing Organization Address [facility] Co de Phone Number [facility] [address] [facility]. [address] documented in this encounter Visit Diagnoses Diagnosis Ikaeq-qy-puoaqoe kidney injury (CMS-HCC)- Primary Liver transplanted (CMS-HCC) Liver replaced by transplant Other cirrhosis of liver ([facility]-HCC) Acute renal failure superimposed on chronic kidney disease, on chronic dialysis, unspecified acute renal failure type (CMS-HCC) Anemia due to stage 5 chronic kidney disease, not on chronic dialysis (CMS-HCC) Group C streptococcal infection Streptococcus infection in conditions classified elsewhere and of unspecified site, group C Nephrotic range proteinuria Proteinuria CARMEN (acute kidney injury) (CMS-HCC) Anemia due to chronic kidney disease, unspecified CKD stage Chronic renal failure, stage 5 (CMS-HCC) ESRD (end stage renal disease) (CMS-HCC) End stage renal disease Essential hypertension Unspecified essential hypertension S/P liver transplant ([facility]) Immunosuppression ([facility]) Liver transplant recipient ([facility]) Group C streptococcal infection Streptococcus infection in conditions classified elsewhere and of unspecified site, group C documented in this encounter Administered Medications Inactive Administered Medications - up to 3 most recent administrations Medication Order MAR Action Action Date Dose Rate Site acetaminophen (TYLENOL) tablet 650 mg 650 mg, Oral, Every 6 hours PRN, mild pain (NRS 1-3), Starting on Mon07/19/19 at 2301, Maximum dose of acetaminophen is 4000 mg (4 grams) from all sources in 24 hours. Given 07/20/2019 6:59 PM EST 650 mg aluminum & magnesium hydroxide-simethicone (MYLANTA, MAALOX) suspension 30 mL 30 mL, Oral, Once, On Mon07/23/19 at 0830, For 1 dose, Therapeutic Interchange for GI Cocktail: Administer 30mL of aluminum & magnesium hydroxide-simethicone (Mag-Al Plus XS) suspension AND Viscous lidocaine 2% 15mL solution. Given 07/23/2019 10:54 AM EST 30 mLs aluminum & magnesium hydroxide-simethicone (MYLANTA, MAALOX) suspension 30 mL 30 mL, Oral, Every 6 hours PRN, Cramping, Indigestion, Heartburn, Starting on Mon07/23/19 at 1200, Therapeutic Interchange for GI Cocktail: Administer 30mL of aluminum & magnesium hydroxide-simethicone (Mag-Al Plus XS) suspension AND Viscous lidocaine 2% 15mL solution. Given 07/23/2019 9:48 PM EST 30 mLs aspirin chewable tablet 81 mg 81 mg, Oral, Daily with breakfast, First dose on Mon07/20/19 at 0800 Given 07/25/2019 1:24 PM EST 81 mg Given 07/24/2019 2:26 PM EST 81 mg Given 07/23/2019 11:46 AM EST 81 mg benzocaine-menthol (CHLORASEPTIC) 6-10 mg lozenge 1 lozenge 1 lozenge, Mucous Membrane, Every 1 hour PRN, sore throat, Starting on Mon07/21/19 at 1046, Patient can have multiple lozenges if needed. Given 07/22/2019 9:38 PM EST 1 lozenge Given 07/21/2019 1:37 PM EST 1 lozenge carBAMazepine (TEGRETOL) tablet 200 mg 200 mg, Oral, At Bedtime (2100), First dose on 07/20/19 at 0000 Given 07/24/2019 8:36 PM EST 200 mg Given 07/22/2019 9:16 PM EST 200 mg Given 07/21/2019 8:26 PM EST 200 mg carvedilol (COREG) tablet 50 mg 50 mg, Oral, 2 times daily with meals, First dose on 07/20/19 at 0800 Given 07/25/2019 1:24 PM EST 50 mg Given 07/24/2019 8:36 PM EST 50 mg Given 07/24/2019 2:25 PM EST 50 mg ceFAZolin (ANCEF) 2 g in sodium chloride 0.9 % 100 mL IVPB 2 g, Intravenous, at 200 mL/hr, Once, On Mon07/23/19 at 0630, For 1 dose, To be administered immediately prior to IR dialysis catheter placement., Indication? Prophylaxis-Surgical, Site of diagnosed infections (select all that apply): IV Line New Bag 07/23/2019 7:45 AM EST 2 g 200 mL/hr cefepime (MAXIPIME) 1 g in sodium chloride 0.9% 50 mL IVPB ADDaptor 1 g, Intravenous, Administer over 240 Minutes, Every 24 hours, First dose on Mon07/20/19 at 0530, For Hemodialysis patients - on dialysis days, please administer Cefepime dose after completion of hemodialysis. Use ADDaptor product - Mix Thoroughly Before Administration, Indication? Infection-Suspected, Site of diagnosed infections (select all that apply): Abdominal/Pelvic New Bag 07/20/2019 10:10 AM EST 1 g 12.5 mL/hr cefTRIAXone (ROCEPHIN) 2 g in sodium chloride 0.9% 100 mL ADDaptor IVPB 2 g, Intravenous, at 200 mL/hr, Every 12 hours, First dose on Mon07/21/19 at 1000, Use ADDaptor product - Mix Thoroughly Before Administration New Bag 07/21/2019 9:51 PM EST 2 g 200 mL/hr New Bag 07/21/2019 10:07 AM EST 2 g 200 mL/hr cefTRIAXone (ROCEPHIN) 2 g in sodium chloride 0.9% 100 mL ADDaptor IVPB 2 g, Intravenous, at 200 mL/hr, Every 24 hours, First dose (after last modification) on Mon07/22/19 at 2200, Use ADDaptor product - Mix Thoroughly Before Administration New Bag 07/24/2019 10:30 PM EST 2 g 200 mL/h r New Bag 07/23/2019 9:46 PM EST 2 g 200 mL/hr New Bag 07/22/2019 9:18 PM EST 2 g 200 mL/hr cloNIDine HCl (CATAPRES) tablet 0.1 mg 0.1 mg, Oral, 2 times daily, First dose on Mon07/20/19 at 0000 Given 07/25/2019 9:34 AM EST 0.1 mg Given 07/24/2019 8:36 PM EST 0.1 mg Given 07/24/2019 2:25 PM EST 0.1 mg cycloSPORINE modified (NEORAL/GENGRAF) capsule 50 mg 50 mg, Oral, 2 times daily, First dose on Mon07/23/19 at 1300, LEVEL 2 HAZARDOUS MEDICATION Given 07/25/2019 1: 23 PM EST 50 mg Given 07/24/2019 8:35 PM EST 50 mg Given 07/24/2019 2:30 PM EST 50 mg dextrose 10 % (D10W) in water infusion 12.5 g, Intravenous, Every 15 min PRN, for glucose < 70 and alert but can not be corrected orally or via feeding tube, Starting on Mon07/19/19 at 2353, Recheck blood sugar in 15 minutes and repeat treatment if glucose still < 70. FOR SMART PUMP: Set volume to be infused to 125 mL = 12.5 grams OR 250 mL = 25 grams dextrose 10 % (D10W) in water infusion 25 g, Intravenous, Every 15 min PRN, for glucose < 70 and not alert, Starting on Mon07/19/19 at 2353, Recheck blood sugar in 15 minutes and repeat treatment if glucose still < 70. FOR SMART PUMP: Set volume to be infused to 125 mL = 12.5 grams OR 250 mL = 25 grams entecavir (BARACLUDE) tablet 0.5 mg 0.5 mg, Oral, Every 72 hours, First dose on Mon07/20/19 at 0000, ADMINISTER ON EMPTY STOMACH (2 HOURS BEFORE OR AFTER MEALS). LEVEL 2 HAZARDOUS MEDICATION Given 07/20/2019 2:00 AM EST 0.5 mg entecavir (BARACLUDE) tablet 0.5 mg 0.5 mg, Oral, Every 7 days, First dose on Mon19 at 0900, ADMINISTER ON EMPTY STOMACH (2 HOURS BEFORE OR AFTER MEALS). LEVEL 2 HAZARDOUS MEDICATION ergocalciferol capsule 50,000 Units 50,000 Units, Oral, Weekly, First dose on 07/20/19 at 0900 Given 07/20/2019 8:33 AM EST 50,000 Units famotidine (PEPCID) tablet 20 mg 20 mg, Oral, Daily, First dose on Mon07/20/19 at 0900 Given 07/25/2019 1:23 PM EST 20 mg Given 07/24/2019 2:25 PM EST 20 mg Given 07/23/2019 11:46 AM EST 20 mg For Catheter Lock: gentamicin 0.32 mg/mL and citrate 4% antibiotic IV lock 5 mL, Intracatheter, Once, On Bobbi 07/25/19 at 1200, For 1 dose, Instill 2-5 mL based on patient catheter size to prevent occlusion. GENTAMICIN 0.32 mg/mL IN CITRATE 4%; PROTECT FROM LIGHT Given 07/25/2019 11:59 AM EST 5 mLs gabapentin (NEURONTIN) capsule 200 mg 200 mg, Oral, Nightly PRN, Other, pain, Starting on Mon07/23/19 at 1553 gentamicin 0.32 mg/mL in citrate 4% 0.32 mg/mL lock Starting on Mon07/24/19 at 1114, For 1 dose, HEIKE LY R: cabinet override GENTAMICIN 0.32 mg/mL IN CITRATE 4%; PROTECT FROM LIGHT Given 07/24/2019 11:18 AM EST 5 mLs HYDROmorphone (DILAUDID) injection 0.5 mg 0.5 mg, Intravenous, Once, On 07/21/19 at 1030, For 1 dose Given 07/21/2019 10:56 AM EST 0.5 mg HYDROmorphone (DILAUDID) injection 0.5 mg 0.5 mg, Intravenous, Once, On Mon07/23/19 at 0230, For 1 dose Given 07/23/2019 2:37 AM EST 0.5 mg insulin lispro (humaLOG) injection 0-4 Units 0-4 Units, Subcutaneous, At Bedtime (2100), First dose on Mon07/20/19 at 2100, HIGH ALERT MEDICATION Glucose must be checked at 03:00 if bedtime correction is given. Onset of action is rapid. Give dose 5-10 minutes before meal. Have meal at bedside. insulin lispro (humaLOG) injection 0-5 Units 0-5 Units, Subcutaneous, 3 times daily before meals, First dose on 07/20/19 at 0900, HIGH ALERT MEDICATION Given 07/21/2019 1:40 PM EST 1 Units Right Arm Given 07/21/2019 10:56 AM EST 1 Units R ight Arm Given 07/20/2019 12:23 PM EST 1 Units R ight Arm insulin lispro (humaLOG) injection 3 Units 3 Units, Subcutaneous, 3 times daily before meals, First dose on 07/20/19 at 0900, HIGH ALERT MEDICATION Onset of action is rapid. Give dose 5-10 minutes before meal. Have meal at bedside. Given 07/25/2019 1:28 PM EST 3 Units Left Arm Given 07/24/2019 4:01 PM EST 3 Units Le ft Arm Given 07/21/2019 1:40 PM EST 3 Units Ri ght Arm insulin NPH (HumuLIN N) injection 18 Units 18 Units, Subcutaneous, Daily, First dose on 07/20/19 at 0900, Do not hold medication unless instructed by provider. HIGH ALERT MEDICATION Given 07/25/2019 1:29 PM EST 18 Units Left Arm Given 07/23/2019 11:47 AM EST 18 Units R ight Arm Given 07/22/2019 8:22 AM EST 18 Units Ri ght Arm insulin NPH (HumuLIN N) injection 6 Units 6 Units, Subcutaneous, At Bedtime (2100), First dose on 07/20/19 at 2100, Do not hold medication unless instructed by provider. HIGH ALERT MEDICATION Given 07/24/2019 10:45 PM EST 6 Units Abdominal Tissue Given 07/23/2019 9:49 PM EST 6 Units Ri ght Arm Given 07/22/2019 9:36 PM EST 6 Units Le ft Arm iron sucrose (VENOFER) 300 mg in sodium chloride 0.9 % 250 mL IVPB 300 mg, Intravenous, Administer over 90 Minutes, Daily, With dialysis ONLY New Bag 07/25/2019 9:35 AM EST 300 mg 166.7 mL/hr New Bag 07/24/2019 9:56 AM EST 300 mg 166.7 mL/hr New Bag 07/24/2019 9:44 AM EST 300 mg 166.7 mL/hr lactated Ringers infusion 75 mL/hr, Intravenous, Continuous, Starting on Mon07/20/19 at 0600, For 10 hours New Bag 07/20/2019 6:02 AM EST 75 mL/hr 75 mL/hr lactated Ringers infusion 75 mL/hr, Intravenous, Continuous, Starting on Mon07/20/19 at 2030, For 10 hours New Bag 07/21/2019 12:44 AM EST 75 mL/hr 75 mL/hr lidocaine (LIDODERM) 5 % 1 patch 1 patch, Transdermal, Every 24 hours, First dose on Mon07/20/19 at 0700, LEAVE PATCH ON FOR 12 HOURS,THEN REMOVE FOR 12 HOURS. Patch Applied 07/20/2019 6:52 AM EST 1 patch Other lidocaine 10 mg/mL (1 %) injection Code/trauma medication, Starting on Mon07/23/19 at 0953 Given 07/23/2019 9:53 AM EST 10 mLs Chest lidocaine HCl (XYLOCAINE) 2 % viscous soln 15 mL 15 mL, Oral, Once, On Mon07/23/19 at 0830, For 1 dose, Therapeutic Interchange for GI Cocktail: Administer orally- 30mL of aluminum & magnesium hydroxide-simethicone (Mag-Al Plus XS) suspension AND Viscous lidocaine 2% 15mL solution. Given 07/23/2019 10:54 AM EST 15 mLs lidocaine HCl (XYLOCAINE) 2 % viscous soln 15 mL 15 mL, Oral, Every 6 hours PRN, For mouth or throat irritation, Starting on Mon07/23/19 at 1200, Therapeutic Interchange for GI Cocktail: Administer orally- 30mL of aluminum & magnesium hydroxide-simethicone (Mag-Al Plus XS) suspension AND Viscous lidocaine 2% 15mL solution. Given 07/23/2019 9:48 PM EST 15 mLs melatonin 3 mg 3 mg, Oral, Nightly PRN, For insomnia, Starting on Mon07/21/19 at 0108, FOR INSOMNIA Given 07/23/2019 9:48 PM EST 3 mg NIFEdipine (PROCARDIA-XL) 24 hr tablet 90 mg 90 mg, Oral, 2 times daily, First dose on Mon07/20/19 at 0900, DO NOT CRUSH Given 07/25/2019 1:24 PM EST 90 mg Given 07/24/2019 8:37 PM EST 90 mg Given 07/24/2019 2:25 PM EST 90 mg ondansetron (ZOFRAN) injection 4 mg 4 mg, Intravenous, Once, On Mon07/23/19 at 0230, For 1 dose Given 07/23/2019 2:37 AM EST 4 mg ondansetron (ZOFRAN) injection 4 mg 4 mg, Intravenous, Every 6 hours PRN, Nausea and/or Vomiting, Starting on Mon07/23/19 at 0813 Given 07/24/2019 2:23 PM EST 4 mg Given 07/23/2019 10:54 AM EST 4 mg oxyCODONE (ROXICODONE) immediate release tablet 2.5 mg 2.5 mg, Oral, Once, On Mon07/20/19 at 0800, For 1 dose Given 07/20/2019 8:32 AM EST 2.5 mg perflutren lipid microspheres (DEFINITY) injection 2.2 mg 2.2 mg, Intravenous, IMG once as needed, Other, Starting on Mon07/22/19 at 1529, For 1 dose Given 07/22/2019 2:55 PM EST 2.2 mg perflutren lipid microspheres (DEFINITY) injection 2.2 mg 2.2 mg, Intravenous, IMG once as needed, Other, Starting on Mon07/22/19 at 1532, For 1 dose Given 07/22/2019 2:58 PM EST 2.2 mg phenol (SORE THROAT) 1.4 % spray Mucous Membrane, Every 2 hour PRN, sore throat, Starting on Mon07/22/19 at 1917, Up to 5 sprays onto throat or affected area; keep in place for 15 seconds, then expectorate. Given 07/22/2019 9:38 PM EST 1 mL sodium bicarbonate tablet 1,300 mg 1,300 mg, Oral, 2 times daily, First dose on 07/20/19 at 0530 Given 07/23/2019 9:46 PM EST 1,300 mg Given 07/23/2019 11:47 AM EST 1,300 mg Given 07/22/2019 9:17 PM EST 1,300 mg tacrolimus ER (24 HR) (ENVARSUS XR) tablet 3 mg 3 mg, Oral, Daily7, First dose on Mon07/22/19 at 0700, TAKE ON EMPTY STOMACH SWALLOW WHOLE; DO NOT CRUSH, CHEW OR DIVIDE Given 07/23/2019 7:43 AM EST 2 mg Given 07/22/2019 6:26 AM EST 3 mg terazosin (HYTRIN) capsule 10 mg 10 mg, Oral, At Bedtime (2100), First dose on 07/20/19 at 2100, Therapeutic Interchange: doxazosin (CARDURA) 8 mg daily = terazosin (HYTRIN) 10 mg daily Given 07/24/2019 8:35 PM EST 10 mg Given 07/23/2019 9:48 PM EST 10 mg Given 07/22/2019 9:16 PM EST 10 mg traMADol (ULTRAM) tablet 50 mg 50 mg, Oral, Every 12 hours PRN, moderate pain (NRS-4-6), Starting on 07/20/19 at 1457 Given 07/24/2019 2:26 PM EST 5 0 mg Given 07/21/2019 1:37 PM EST 50 mg valACYclovir (VALTREX) tablet 1,000 mg 1,000 mg, Oral, Every 12 hours scheduled (2 times per day), First dose on Mon07/22/19 at 2100 Given 07/23/2019 11:46 AM EST 1,000 mg Given 07/22/2019 9:17 PM EST 1,000 mg valACYclovir (VALTREX) tablet 500 mg 500 mg, Oral, Daily, First dose (after last modification) on Mon07/24/19 at 0900 Given 07/25/2019 1:23 PM EST 500 mg Given 07/24/2019 2:29 PM EST 500 mg vancomycin (VANCOCIN) 3,000 mg in sodium chloride 0.9 % 500 mL IVPB 3,000 mg (rounded from 3,425 mg = 25 mg/kg ? 137 kg), Intravenous, Administer over 180 Minutes, Once, Contact pharmacy if there is a question/concern of whether vancomycin should be given based on serum drug levels., Indication? Infection-Suspected, Site of diagnosed infections (select all that apply): Abdominal/Pelvic Given 07/20/2019 5:19 AM EST 3,000 mg 166.7 mL/hr documented in this encounter Active and Recently Administered Medications Times are shown in EST. Scheduled Medication Order 07/23/2019 07/24/2019 07/25/2019 aluminum & magnesium hydroxide-simethicone (MYLANTA, MAALOX) suspension 30 mL (COMPLETED)(Linked Group 1) 30 mL, Oral, Once, On Mon07/23/19 at 0830, For 1 dose, Therapeutic Interchange for GI Cocktail: Administer 30mL of aluminum & magnesium hydroxide-simethicone (Mag-Al Plus XS) suspension AND Viscous lidocaine 2% 15mL solution. 1054 (Given - Provider: Judi Bender RN) aspirin chewable tablet 81 mg 81 mg, Oral, Daily with breakfast, First dose on 07/20/19 at 0800 1146 (Given - Provider: Judi Bender RN) 1426 (Given - Provider: Judi Bender RN) 1324 (Given - Provider: Rose Haynes RN) carBAMazepine (TEGRETOL) tablet 200 mg 200 mg, Oral, At Bedtime (2100), First dose on Mon07/20/19 at 0000 2148 (Not Given - Provider: Roxi Gurrola RN - Reason: Patient/family refused) 2035 (Given - Provider: Karthik Nelson RN) carvedilol (COREG) tablet 50 mg 50 mg, Oral, 2 times daily with meals, First dose on 07/20/19 at 0800 1145 (Given - Provider: Judi Bender RN)1849 (Given - Provider: Judi Bender RN) 1425 (Given - Provider: Judi Bender RN)2035 (Given - Provider: Karthik Nelson RN - Comment: rescheduled d/t previous dose given late after return from procedure) 0800 (Not Given - Provider: Rose Haynes RN - Reason: Patient not available)1324 (Given - Provider: Rose Haynes RN) ceFAZolin (ANCEF) 2 g in sodium chloride 0.9 % 100 mL IVPB (COMPLETED) 2 g, Intravenous, at 200 mL/hr, Once, On Mon07/23/19 at 0630, For 1 dose, To be administered immediately prior to IR dialysis catheter placement., Indication? Prophylaxis-Surgical, Site of diagnosed infections (select all that apply): IV Line 0745 (New Bag - Provider: Roxi Gurrola RN - Comment: per patient has been awake all night went to sleep after 0430. Time changed to?Allow patient slight rest priod.) cefTRIAXone (ROCEPHIN) 2 g in sodium chloride 0.9% 100 mL ADDaptor IVPB 2 g, Intravenous, at 200 mL/hr, Every 24 hours, First dose (after last modification) on Mon07/22/19 at 2200, Use ADDaptor product - Mix Thoroughly Before Administration 2146 (New Bag - Provider: Roxi Gurrola RN) 2230 (New Bag - Provider: Karthik Nelson RN) cloNIDine HCl (CATAPRES) tablet 0.1 mg 0.1 mg, Oral, 2 times daily, First dose on Mon07/20/19 at 0000 1156 (Given - Provider: Juid Bender RN)2148 (Given - Provider: Roxi Gurrola RN) 1425 (Given - Provider: Judi Bender RN)2036 (Given - Provider: Karthik Nelson RN) 0934 (Given - Provider: Heike Ly RN) cycloSPORINE modified (NEORAL/GENGRAF) capsule 50 mg 50 mg, Oral, 2 times daily, First dose on Mon07/23/19 at 1300, LEVEL 2 HAZARDOUS MEDICATION 1434 (Given - Provider: Judi Bender RN)2148 (Given - Provider: Roxi Gurrola RN) 1430 (Given - Provider: Judi Bender RN)203 (Given - Provider: Karthik Nelson RN) 0800 (Hold - Provider: Rose Haynes RN - Reason: Patient not available)1323 (Given - Provider: Rose Haynes, JANA) entecavir (BARACLUDE) tablet 0.5 mg 0.5 mg, Oral, Every 7 days, First dose on Mon07/27/19 at 0900, ADMINISTER ON EMPTY STOMACH (2 HOURS BEFORE OR AFTER MEALS). LEVEL 2 HAZARDOUS MEDICATION ergocalciferol capsule 50,000 Units 50,000 Units, Oral, Weekly, First dose on Mon07/20/19 at 0900 famotidine (PEPCID) tablet 20 mg 20 mg, Oral, Daily, First dose on Mon07/20/19 at 0900 1146 (Given - Provider: Judi Bender RN) 1425 (Given - Provider: Judi Bender RN) 1323 (Given - Provider: Rose Haynes RN) For Catheter Lock: gentamicin 0.32 mg/mL and citrate 4% antibiotic IV lock (COMPLETED) 5 mL, Intracatheter, Once, On Bobbi 07/25/19 at 1200, For 1 dose, Instill 2-5 mL based on patient catheter size to prevent occlusion. GENTAMICIN 0.32 mg/mL IN CITRATE 4%; PROTECT FROM LIGHT 1159 (Given - Provider: Heike Ly, JANA) HYDROmorphone (DILAUDID) injection 0.5 mg (COMPLETED) 0.5 mg, Intravenous, Once, On Mon07/23/19 at 0230, For 1 dose 0237 (Given - Provider: Roxi Gurrola RN) insulin lispro (humaLOG) injection 0-4 Units(Linked Group 2) 0-4 Units, Subcutaneous, At Bedtime (2100), First dose on 07/20/19 at 2100, HIGH ALERT MEDICATION Glucose must be checked at 03:00 if bedtime correction is given. Onset of action is rapid. Give dose 5-10 minutes before meal. Have meal at bedside. 2223 (Not Given - Provider: Roxi Gurrola RN - Reason: Order parameters not met - Comment: fsbs 115) 2135 (Not Given - Provider: Karthik Nelson RN - Reason: Order parameters not met) insulin lispro (humaLOG) injection 0-5 Units 0-5 Units, Subcutaneous, 3 times daily before meals, First dose on 07/20/19 at 0900, HIGH ALERT MEDICATION 1134 (Hold - Provider: Judi Bender RN - Reason: Order parameters not met)1535 (Hold - Provider: Judi Bender RN - Reason: Order parameters not met)2202 (Not Given - Provider: Roxi Gurrola RN - Reason: Order parameters not met - Comment: pt ordered dinner after 1830) 0935 (Not Given - Provider: Heike Ly RN - Reason: Order parameters not met - Comment: NPO)1550 (Hold - Provider: Judi Bender RN - Reason: Order parameters not met)2135 (Not Given - Provider: Karthik Nelson RN - Reason: Order parameters not met - Comment: pt eating dinner late) 0903 (Not Given - Provider: Heike Ly RN - Reason: Order parameters not met)1327 (Not Given - Provider: Rose Haynes RN - Reason: Order parameters not met) insulin lispro (humaLOG) injection 3 Units 3 Units, Subcutaneous, 3 times daily before meals, First dose on 07/20/19 at 0900, HIGH ALERT MEDICATION Onset of action is rapid. Give dose 5-10 minutes before meal. Have meal at bedside. 1134 (Hold - Provider: Judi Bender RN - Reason: NPO)1535 (Hold - Provider: Judi Bender RN - Reason: Order parameters not met - Comment: pt unable to eat anything prior to being taken to HD)2201 (Hold - Provider: Roxi Gurrola RN - Reason: Other - Comment: pt ordered dinner after 1830patient at dinner prior) 0935 (Not Given - Provider: Heike Ly RN - Reason: NPO)1601 (Given - Provider: Judi Bender RN)2136 (Not Given - Provider: Karthik Nelson RN - Reason: Other - Comment: pt refused dinner) 0902 (Not Given - Provider: Heike Ly RN - Reason: Order parameters not met - Comment: Patient receiving HD not eating at this time.)1328 (Given - Provider: Rose Haynes RN) insulin NPH (HumuLIN N) injection 18 Units 18 Units, Subcutaneous, Daily, First dose on 07/20/19 at 0900, Do not hold medication unless instructed by provider. HIGH ALERT MEDICATION 1147 (Given - Provider: Judi Bender RN) 1502 (Not Given - Provider: Judi Bender RN - Reason: Contraindicated - Comment: Juan Carlos Costello MD, ok to hold am dose not given while pt in HD) 1329 (Given - Provider: Rose Haynes RN) insulin NPH (HumuLIN N) injection 6 Units 6 Units, Subcutaneous, At Bedtime (2100), First dose on 07/20/19 at 2100, Do not hold medication unless instructed by provider. HIGH ALERT MEDICATION 2149 (Given - Provider: Roxi Gurrola RN) 2245 (Given - Provider: Karthik Nelson RN) iron sucrose (VENOFER) 300 mg in sodium chloride 0.9 % 250 mL IVPB (COMPLETED) 300 mg, Intravenous, Administer over 90 Minutes, Daily, With dialysis ONLY 0944 (New Bag - Provider: Heike Ly, JANA)0956 (New Bag - Provider: Melody Orellana, JANA) 0935 (New Bag - Provider: Heike Ly RN) lidocaine (LIDODERM) 5 % 1 patch 1 patch, Transdermal, Every 24 hours, First dose on Mon07/20/19 at 0700, LEAVE PATCH ON FOR 12 HOURS,THEN REMOVE FOR 12 HOURS. 0744 (Not Given - Provider: Roxi Gurrola RN - Reason: Patient/family refused - Comment: per patient has been awake all night went to sleep after 0430. Time changed to?Allow patient slight rest priod) 0624 (Not Given - Provider: Roxi Gurrola RN - Reason: Patient/family refused) 0627 (Not Given - Provider: Karthik Nelson RN - Reason: Patient/family refused) lidocaine HCl (XYLOCAINE) 2 % viscous soln 15 mL (COMPLETED)(Linked Group 1) 15 mL, Oral, Once, On Mon07/23/19 at 0830, For 1 dose, Therapeutic Interchange for GI Cocktail: Administer orally- 30mL of aluminum & magnesium hydroxide-simethicone (Mag-Al Plus XS) suspension AND Viscous lidocaine 2% 15mL solution. 1054 (Given - Provider: Judi Bender RN) NIFEdipine (PROCARDIA-XL) 24 hr tablet 90 mg 90 mg, Oral, 2 times daily, First dose on Mon07/20/19 at 0900, DO NOT CRUSH 1145 (Given - Provider: Judi Bender RN)2148 (Given - Provider: Roxi Gurrola RN) 1425 (Given - Provider: Judi Bender RN)2037 (Given - Provider: Karthik Nelson RN) 0800 (Not Given - Provider: Rose Haynes, RN - Reason: Patient not available)1324 (Given - Provider: Rose Haynes, RN) ondansetron (ZOFRAN) injection 4 mg (COMPLETED) 4 mg, Intravenous, Once, On Mon07/23/19 at 0230, For 1 dose 0237 (Given - Provider: Roxi Gurrola RN) sodium bicarbonate tablet 1,300 mg (CANCELED) 1,300 mg, Oral, 2 times daily, First dose on Mon07/20/19 at 0530 1147 (Given - Provider: Judi Bender RN)214 (Given - Provider: Roxi Gurrola RN) tacrolimus ER (24 HR) (ENVARSUS XR) tablet 3 mg (CANCELED) 3 mg, Oral, Daily7, First dose on Mon07/22/19 at 0700, TAKE ON EMPTY STOMACH SWALLOW WHOLE; DO NOT CRUSH, CHEW OR DIVIDE 0743 (Given - Provider: Roxi Gurrola RN - Comment: patient refuses to take 3 mg) terazosin (HYTRIN) capsule 10 mg 10 mg, Oral, At Bedtime (2100), First dose on Mon07/20/19 at 2100, Therapeutic Interchange: doxazosin (CARDURA) 8 mg daily = terazosin (HYTRIN) 10 mg daily 2147 (Given - Provider: Roxi Gurrola RN) 2034 (Given - Provider: Karthik Nelson RN) valACYclovir (VALTREX) tablet 1,000 mg (CANCELED) 1,000 mg, Oral, Every 12 hours scheduled (2 times per day), First dose on Mon07/22/19 at 2100 1146 (Given - Provider: Judi Bender RN) valACYclovir (VALTREX) tablet 500 mg 500 mg, Oral, Daily, First dose (after last modification) on Mon07/24/19 at 0900 1429 (Given - Provider: Judi Bender RN) 1323 (Given - Provider: Rose Haynes RN) PRN Medication Order 07/23/2019 07/24/2019 07/25/2019 acetaminophen (TYLENOL) tablet 650 mg 650 mg, Oral, Every 6 hours PRN, mild pain (NRS 1-3), Starting on Mon07/19/19 at 2301, Maximum dose of acetaminophen is 4000 mg (4 grams) from all sources in 24 hours. aluminum & magnesium hydroxide-simethicone (MYLANTA, MAALOX) suspension 30 mL(Linked Group 3) 30 mL, Oral, Every 6 hours PRN, Cramping, Indigestion, Heartburn, Starting on Mon07/23/19 at 1200, Therapeutic Interchange for GI Cocktail: Administer 30mL of aluminum & magnesium hydroxide-simethicone (Mag-Al Plus XS) suspension AND Viscous lidocaine 2% 15mL solution. 2147 (Given - Provider: Roxi Gurrola RN) benzocaine-menthol (CHLORASEPTIC) 6-10 mg lozenge 1 lozenge 1 lozenge, Mucous Membrane, Every 1 hour PRN, sore throat, Starting on Mon07/21/19 at 1046, Patient can have multiple lozenges if needed. dextrose 10 % (D10W) in water infusion(Linked Group 4) 12.5 g, Intravenous, Every 15 min PRN, for glucose < 70 and alert but can not be corrected orally or via feeding tube, Starting on Mon07/19/19 at 2353, Recheck blood sugar in 15 minutes and repeat treatment if glucose still < 70. FOR SMART PUMP: Set volume to be infused to 125 mL = 12.5 grams OR 250 mL = 25 grams dextrose 10 % (D10W) in water infusion(Linked Group 4) 25 g, Intravenous, Every 15 min PRN, for glucose < 70 and not alert, Starting on Mon07/19/19 at 2353, Recheck blood sugar in 15 minutes and repeat treatment if glucose still < 70. FOR SMART PUMP: Set volume to be infused to 125 mL = 12.5 grams OR 250 mL = 25 grams gabapentin (NEURONTIN) capsule 200 mg 200 mg, Oral, Nightly PRN, Other, pain, Starting on Mon07/23/19 at 1553 glucose chewable tablet 12 g 12 g, Oral, Every 15 min PRN, Low blood sugar, for glucose 50-70 mg/dL, Starting on Mon07/19/19 at 2353, Recheck glucose in 15 minutes and if glucose still < 70, repeat treatment. DO NOT ADMINISTER VIA FEEDING TUBE lidocaine 10 mg/mL (1 %) injection (COMPLETED) Code/trauma medication, Starting on Mon07/23/19 at 0953 0953 (Given - Provider: NAVNEET Collins - Comment: right upper chest and neck) lidocaine HCl (XYLOCAINE) 2 % viscous soln 15 mL(Linked Group 3) 15 mL, Oral, Every 6 hours PRN, For mouth or throat irritation, Starting on Mon07/23/19 at 1200, Therapeutic Interchange for GI Cocktail: Administer orally- 30mL of aluminum & magnesium hydroxide-simethicone (Mag-Al Plus XS) suspension AND Viscous lidocaine 2% 15mL solution. 2147 (Given - Provider: Roxi Gurrola, JANA) melatonin 3 mg 3 mg, Oral, Nightly PRN, For insomnia, Starting on 07/21/19 at 0108, FOR INSOMNIA 2147 (Given - Provider: Roxi Gurrola RN) ondansetron (ZOFRAN) injection 4 mg 4 mg, Intravenous, Every 6 hours PRN, Nausea and/or Vomiting, Starting on Mon07/23/19 at 0813 1054 (Given - Provider: Judi Bender RN) 1423 (Given - Provider: Judi Bender RN) phenol (SORE THROAT) 1.4 % spray Mucous Membrane, Every 2 hour PRN, sore throat, Starting on Mon07/22/19 at 1917, Up to 5 sprays onto throat or affected area; keep in place for 15 seconds, then expectorate. polyethylene glycol (MIRALAX) packet 17 g 17 g, Oral, 2 times daily PRN, Constipation, Starting on Mon07/19/19 at 2357 traMADol (ULTRAM) tablet 50 mg 50 mg, Oral, Every 12 hours PRN, moderate pain (NRS-4-6), Starting on 07/20/19 at 1457 1426 (Given - Provider: Judi Bender RN) No Frequency Medication Order 07/23/2019 07/24/2019 07/25/2019 gentamicin 0.32 mg/mL in citrate 4% 0.32 mg/mL lock (COMPLETED) Starting on Mon07/24/19 at 1114, For 1 dose, HEIKE LY R: cabinet override GENTAMICIN 0.32 mg/mL IN CITRATE 4%; PROTECT FROM LIGHT 1118 (Given - Provider: Martin Ly RN) Linked Groups Order Group 1: aluminum & magnesium hydroxide-simethicone (MYLANTA, MAALOX) suspension 30 mL (COMPLETED)Jump to med 30 mL, Oral, Once, On Mon07/23/19 at 0830, For 1 dose, Therapeutic Interchange for GI Cocktail: Administer 30mL of aluminum & magnesium hydroxide-simethicone (Mag- Al Plus XS) suspension AND Viscous lidocaine 2% 15mL solution. And lidocaine HCl (XYLOCAINE) 2 % viscous soln 15 mL (COMPLETED)Jump to med 15 mL, Oral, Once, On Mon07/23/19 at 0830, For 1 dose, Therapeutic Interchange for GI Cocktail: Administer orally- 30mL of aluminum & magnesium hydroxide- simethicone (Mag-Al Plus XS) suspension AND Viscous lidocaine 2% 15mL solution. Group 2: insulin lispro (humaLOG) injection 0-4 UnitsJump to med 0-4 Units, Subcutaneous, At Bedtime (2100), First dose on Mon07/20/19 at 2100, HIGH ALERT MEDICATION Glucose must be checked at 03:00 if bedtime correction is given. Onset of action is rapid. Give dose 5-10 minutes before meal. Have meal at bedside. And Fingerstick Glucose, Overnight (If correction given) (CANCELED) Routine, Daily at 0300 PRN, Starting on Mon07/20/19 at 0300, Until Specified Group 3: aluminum & magnesium hydroxide-simethicone (MYLANTA, MAALOX) suspension 30 mLJump to med 30 mL, Oral, Every 6 hours PRN, Cramping, Indigestion, Heartburn, Starting on Mon07/23/19 at 1200, Therapeutic Interchange for GI Cocktail: Administer 30mL of aluminum & magnesium hydroxide-simethicone (Mag-Al Plus XS) suspension AND Viscous lidocaine 2% 15mL solution. And lidocaine HCl (XYLOCAINE) 2 % viscous soln 15 mLJump to med 15 mL, Oral, Every 6 hours PRN, For mouth or throat irritation, Starting on Mon07/23/19 at 1200, Therapeutic Interchange for GI Cocktail: Administer orally- 30mL of aluminum & magnesium hydroxide-simethicone (Mag-Al Plus XS) suspension AND Viscous lidocaine 2% 15mL solution. Group 4: dextrose 10 % (D10W) in water infusionJump to med 12.5 g, Intravenous, Every 15 min PRN, for glucose < 70 and alert but can not be corrected orally or via feeding tube, Starting on Mon07/19/19 at 2353, Recheck blood sugar in 15 minutes and repeat treatment if glucose still < 70. FOR SMART PUMP: Set volume to be infused to 125 mL = 12.5 grams OR 250 mL = 25 grams Or dextrose 10 % (D10W) in water infusionJump to med 25 g, Intravenous, Every 15 min PRN, for glucose < 70 and not alert, Starting on Mon07/19/19 at 2353, Recheck blood sugar in 15 minutes and repeat treatment if glucose still < 70. FOR SMART PUMP: Set volume to be infused to 125 mL = 12.5 grams OR 250 mL = 25 grams documented in this encounter Additional Health Concerns Assessment Noted Time PHQ-9 Depression Total Score: 0 12/06/19 18 3:00 PM EDT documented as of this encounter Care Teams Program Manager Environmental Planning Relationship Specialty Start Date End Date Edgar Fournier MD [address] [place] [address] [place] [phone] PCP - General 08/18/17 06/23/21 Maile Valles, JANA Txp Post Coordinator Transplant Hepatology 11/07/17 Arnold Ordoñez MD [facility] [place] [phone] Consulting Physician Transplant Hepatology 01/05/18 documented as of this encounter
--- OUTSIDE RECORDS SUMMARY | 2024-07-12 12:47 | XMS_ITS | Encounter Summary ---
Author Organization [facility] Address [address] [place] [id number] Care Team Providers Care Tool Grinder Operator Surface Name Role Phone Edgar Fournier MD Primary Care Provider [phone] Maile Olmedo RN Unavailable Unavail able Jack Ordoñez MD Unavailable [phone] Source Comments This information has been [...] release of HIV test results or diagnoses. [id number] Reason for Visit * Reason Comments Advice Only Medication Dose Change Encounter Details Date Type Department Care Team (Late st Contact Info) Description 07/18/2019 Telephone [facility] Liver Transplant at Outpatient [address] [phone] Latrice Brice MA Advice Only; Medication Dose Change Social History Tobacco Use Types Packs/Day Years [...] Progress Notes * Maile Olmedo RN - 07/19/2019 11:59 AM ESTAddended by: MAILE OLMEDO on: 07/19/2019 11:59 AM Modules accepted: Orders documented in this encounter Miscellaneous Notes * Telephone Encounter - Maile Olmedo RN - 07/19/2019 11:47 AM EST Reviewed with Dr. Ordoñez. Would not recommend switch from tacrolimus but will approve dose change to Envarsus 2 mg daily. Updated dose. Called patient to review dose change - patient is actually at local ED and being admitted to GI service at [facility]. Appears accepting diagnosis is hypertension, patient mentioned that Cr is elevated to 7. Patient c/o tremors and words were slurred. Will update Dr. Ordoñez and GI attending. * Telephone Encounter - Maile Olmedo RN - 07/18/2019 4:01 PM EST Patient was discharged from the hospital on 07/01. Envarsus dose was increased to 3 mg daily on discharge. Patient believes tremors and instability d/t increased dose. Last tacro level on 07/01 was < 2.0. LFTs last drawn on 06/29 and were stable at that time. Will review with Txp Provider. * Telephone Encounter - Latrice Brice MA - 07/18/2019 3:56 PM EST Aiden called stating he is twitching and has been since his medication was increased. Aiden also stated he fell a couple days ago on his chest and then again on his butt. Aiden stated he went to ED he had no broken bones. Aiden stated he just does not feel right and he is off balance. Will route message to personnel coordinator JANA Gr to advise documented in this encounter Plan of Treatment Upcoming Encounters Date Type Department Care Team (Late st Contact Info) Description 07/15/2024 9:00 AM EST Hospital Encounter [facility] Interventional Radiology [address] [place] [phone] Herve Carrillo MD [address] [facility] [address] [facility] [place] [phone] documented as of this encounter Visit Diagnoses Diagnosis S/P liver transplant (CMS-HCC) Immunosuppression (CMS-HCC) documented in this encounter Additional Health Concerns Assessment Noted Time PHQ-9 Depression Total Score: 0 12/06/19 18 3:00 PM EDT documented as of this encounter Care Teams Tool Grinder Operator Surface Relationship Specialty Start Date End Date Edgar Fournier MD [address] [place] [address] [place] [phone] PCP - General 08/18/17 06/23/21 Maile Olmedo, JANA Txp Post Coordinator Transplant Hepatology 11/07/17 Jack Ordoñ[place] [address] [place] [phone] Consulting Physician Transplant Hepatology 01/05/18 documented as of this encounter
--- OUTSIDE RECORDS SUMMARY | 2024-07-12 12:47 | XMS_ITS | Encounter Summary ---
Author Organization [facility] Address [facility] [place] [address] Care Team Providers Care Co Director Name Role Phone Edgar Fournier MD Primary Care Provider [phone] Maile Valles RN Unavailable Unavail able Arnold Ordoñez MD Unavailable [phone] Source Comments This information has been [...] release of HIV test results or diagnoses. [id number] Health Reason for Visit * Auth/Cert Specialty Diagnoses / Procedures Referred By Contac t Referred To Contact Transplant Diagnoses HYPERTENSION / S/P LIVER TXPLANT [facility] 8CCP [address] [place] [address] Phone: tel: Referral ID Status Reason Start Date Expiration Date Visits Re quested Visits Authorized [id number] 1 1 Encounter Details Date Type Department Care Team (Late st Contact Info) Description 07/24/2019 12:15 PM EST - 07/24/2019 12:43 PM EST Surgery [facility] ENDOSCOPY [address] [place] [phone] Arnold Ordoñez MD [address] [place] [phone] EGD WITH BIOPSY Surgery Details Date/Time Status Location OR Service Patient Class Case Class Case Type Trauma Case? 07/24/2019 12:15 PM Posted ENDOSCOPY E3 Gastroenterology Inpatient EGD/Sm Bowel Panel 1 Procedure LRB Anes Op Region Wound Class Comments EGD WITH BIOPSY N/A MAC (Monitor Anesthesia Care) N/A Surgeon Surgeon Role Service Panel Arnold Ordoñez [...] Sign Reading Time Taken Comments Blood Pressure 166/88 07/24/2019 12:38 PM EST Pulse 83 07/24/2019 12:38 PM EST Temperature 36.4 ??C (97.6 ??F) 07/24/2019 12:[address] Respiratory Rate 18 07/24/2019 12:38 PM EST Oxygen Saturation 94% 07/24/2019 12:38 PM EST RA Inhaled Oxygen Concentration 94% 07/24/2019 1 2:38 PM EST RA Weight 131.5 kg (290 lb) 07/24/2019 12:38 PM EST Height 170.2 cm (5' 7 ) 07/24/2019 12:38 PM EST Body Mass Index 45.42 07/24/2019 12:38 PM EST documented in this encounter Discharge Summaries * Keon Brown MD - 07/25/2019 4:55 PM EST Images from the original note were not included. [facility] Inpatient Discharge Summary Patient: Leoncio Rollins Age: 44 y.o. CSN: [id number] Date of Admission: 07/19/2019 Date of Discharge: 07/25/2019 Attending Physician: No att. providers found Primary Care Physician: Edgar Fournier MD Diagnoses Present on Admission Past Medical History: Diagnosis Date ??? Acute pancreatitis ??? Ascites ??? Diabetes mellitus ([facility] Dx) ??? Esophageal varices with bleeding (CMS Dx) ??? GERD (gastroesophageal reflux disease) ??? Hepatic encephalopathy (CMS Dx) ??? Hypertension ??? 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 Vitamin D deficiency Discharge Diagnoses Active Hospital Problems Diagnosis Date Noted ??? Dpgmh-od-rttpecp kidney injury (CMS Dx) [N17.9, N18.9] 01/12/2019 ??? Group C streptococcal infection [A49.1] 07/20/2019 Resolved Hospital Problems No resolved problems to display. Operations/Procedures Performed (include dates) Surgeries: Surgical/Procedural Cases on this Admission Case IDs Date Procedure Surgeon Location Status [id number] 07/24/19 EGD WITH BIOPSY Arnold Ordoñez MD [...] 5 blood-glucose meter Misc Commonly known as: ONETOUCH VERIO SYSTEM Use [...] Your Medications These medications were sent to [facility] [address] [address] Hours: Monday - Monday: 8:45AM - 5:00PM [...] Active Hospital Problems Diagnosis Date Noted ??? Veonq-rd-iwukaha kidney injury ([facility] Dx) [N17.9, N18.9] 01/12/2019 ??? Group C [...] course. ?? Orthotopic liver transplant in September 2017 2/ KIM cirrhosis Patient received liver with hepatitis [...] TPN Diet Orders Diet regular starting at 07/24 1414 Regular Diet 4. Discharge specific orders: [...] - to fax to ID Dr. Johnson [phone] 3. Monitor HTN control. 4. IV ancef [...] note. Marcelino Fox MD * Lizeth Oreilly, CHEMOTHERAPIST, APPLICATION RELEASE MANAGER - 07/25/2019 3:09 PM EST [employer] Newscast Director/High School Counselor Discharge Summary Patient name: Leoncio Rollins Patient : 1975 Age: 44 y.o. Gender: male Patient emergency contact: Extended Emergency Contact Information Primary Emergency Contact: Kym Rollins Address: [address] [address] [facility] [place] Relation: Spouse Secondary Emergency Contact: Kimberly Rollins [facility] Relation: Mother Attending provider: Marcelino Fox MD Primary care physician: Edgar Fournier MD The MD has indicated that the patient is ready for discharge. Leoncio Rollins was referred and accepted at [facility]; accepted for MWF @ 11:15 chair time. Patient will receive IV antibiotics at dialysis and will obtain required labs locally at [facility]. SW inserted dialysis center info into [...] reviewed with the multi-disciplinary team. RADHA Mead, [facility] Inpatient High School Counselor Service [phone] Treatment Preferences Treatment Preferences: Distance Post-Discharge Goals Patient's Post-Discharge goals: DC Home Post Acute Care Provider Information: Dialysis Agency Name: [facility] Dialysis Agency Location: [facility] Dialysis Agency Contact Number: [phone] Pending Labs & Dialysis Information: Pending Lab [...] 30 days? See Below Yes 07/23/19 1521 [facility] HD PreTreatment (last 720 hours) [facility] Pre-Treatment Row Name 07/25/19 0800 07/25/19 [...] Yes Yes Intra-Hemodialysis Comments Resting. Resting. ID at bedside. Row Name 07/24/19 0830 07/24/19 [...] Access Type: Dual Lumen (Vas Cath) Description: chasidy Blakely. joan. si chronic catheter kit. ex: lot: [id number] Orientation: Right Access Location: Internal Jugular Size (Filipino): -- , 14.5 Catheter fully inserted (hub [...] Lumen (Vas Cath) Description: Tunneled , chasidy. palindrome. si chronic catheter kit. ex: lot: [id number] Orientation: Right Access Location: Internal Jugular Size (Filipino): -- , 14.5 Catheter fully inserted (hub [...] need to be faxed to infectious disease: [phone] - follow-up with hepatology. If they do not schedule by Monday call - follow-up with nephrology. Call [phone] - Return to the ED or urgent care clinic if you experience fevers, abdominal pain, more sore throat, pain swallowing/difficulty swallowing, or are unable to take your meds Don't miss these appointments: Future Appointments Date Time Provider Department Center 07/25/2019 2:00 PM Aris Moctezuma MD [facility] Dialysis Center: [address] [place] [address] Chair time: RUTH @ 11:15 AM Thank you for letting [...] strip 5 8 03/18/20 22 blood-glucose meter (Aftercad SoftwareUCH VERIO SYSTEM) [facility] Use as instructed. 1 each 8 03/18/20 [...] 100 unit/mL (3 mL) InPnIndications:S/P liver transplant ([facility]-H[facility]),Hyperglyc emia Inject subcutaneously 20 units in the AM and 8 units in the PM. 15 mL 9 06/25/20 20 lancets (Aftercad SoftwareUCH DELBlueTalon LANCETS) 33 gauge Misc Use 1 strip as directed 4 times daily before meals and at bedtime. 150 each 8 03/18/20 22 lidocaine (LIDODERM) 5 % [...] 2 hours as needed. 177 mL 9 12/17/20 19 polyethylene glycol (MIRALAX) 17 gram packet [...] up / down stairs: Will tolerate assessment Retirement Goal : =STG Patient Stated Goal #1: [...] Patricia Romero, PT, DPT Physical Therapist Pager #[phone] Dept #[phone] Time Start Time: 1427 Stop Time: 1451 [...] 3, GFR 30-59 ml/min (CMS Dx) ??? Gelmy-am-xaakdlx kidney injury (CMS Dx) ??? Metabolic acidosis [...] Intake/Output last 3 shifts: Date 07/24/19699 - 07/25/1965807/25/19699 - 07/26/19658 Shift 8082-3335 8154-9693 8399-0125 24 Hour Total 7949-7941 9069-2833 6353-3663 24 Hour Total INTAKE P.O. 120 120 240 P.O. 120 120 240 Shift Total(mL/kg) 120(0.9) 120(0.9) 240(1.8) OUTPUT Urine(mL/kg/hr) 200(0.2) 40(0) 240(0.1) Urine 200 40 240 Urine Occurrence 1 x 1 x 2 x Other 1300 1300 1999 1999 Net fluid removal (ml) 1300 1300 1999 1999 Stool Stool Occurrence 1 x 1 x Shift Total(mL/kg) 1500(11.4) 40(0.3) 1540(11.7) 1999(15.2) 2000(15.2) Weight (kg) 131.5 131.5 131.5 131.5 131.5 [...] CMV as above Dav Johnson MD 07/25/[phone] * Enrike Mccracken MD - 07/25/2019 10:10 AM EST Transplant Nephrology Consult - Progress Note Patient: Leoncio Rollins [id number] Date of Admit: 07/19/2019. LOS: 6 [...] abdominal swelling. He is sent here from [place] with fevers. He is still fevering all [...] ??? Hypertension ??? 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 Vitamin D deficiency Past [...] time ??? blood-glucose meter (ONETOUCH VERIO SYSTEM) [facility] Use as instructed. 1 each 0 07/19/2019 [...] ??? insulin NPH 6 Units Subcutaneous Nightly (2100) ??? iron sucrose 300 mg Intravenous Daily [...] this encounter: 290 lb (131.5 kg). Date 07/24/19 07 - 07/25/19 0659 07/25/19 07 - 07/26/19 0659 Shift 9673-0320 6370-4725 6928-1166 24 Hour Total 7552-3271 3579-8443 7135-2316 24 Hour Total INTAKE P.O. 120 120 [...] Component Value Date PCO2 34 (L) 10/09/2017 [id number] 97.6 10/09/2017 Physical Exam General: A&Ox3, NAD, [...] difficulty, grossly intact Laboratory Data Recent Labs 07/23/194 07/25/19 0640 WBC 4.4 4.2 HGB 7.3* [...] CO2UR, CRUR No results found for: MICROALBUR, [id number] Lab Results Component Value Date PTH 164.0 (H) 01/14/2019 CALCIUM 7.6 (L) 07/25/2019 PHOS 3.7 07/25/2019 Lab Results Component Value Date MPJA40T 15.8 (L) 01/14/2019 Anemia Labs: Lab Results Component Value Date IRON 24 (L) 07/21/2019 TIBC 202 (L) 07/21/2019 FERRITIN 433.9 (H) 07/21/2019 Lab Results Component Value Date [id number] 499 07/22/2019 Sepsis Marker Labs: No results for input(s): LACTATE in the last 72 hours. Lab Results Component Value Date FIBRINOGEN 454 (H) 07/20/2019 No results for input(s): TEGANGLE, TEGKTIME, SKIWXXZI85, TEGMAXAMPL, TEGRTIME, CBMZ in the last 72 [...] found for: HIV1X2 No results found for: HV0SYSDD No results found for: VDRLCSF Lab Results Component Value Date HEPAIGM Nonreactive 07/22/2019 HEPBCAB Nonreactive 07/22/2019 No results found for: EBN3P0ZP No results found for: APT9Y2ISIH Diagnostic Studies Renal Ultrasound: Results for orders [...] Rollins is a 44 y.o. male with Pbdrv-yl-syklweo kidney injury (CMS Dx). Medical problems being addressed in this encounter include the following: Principal Problem: Sljwb-tz-xdiwgfd kidney injury (CMS Dx) Active Problems: Group [...] 34 (L) 10/09/2017 PO2ART 123 (H) 10/09/2017 WQA6LDC 21 (L) 10/09/2017 BEART -2.9 (L) 10/09/2017 FYJ7YTD 97.6 10/09/2017 #) Volume Status: - Euvolemic. Intake/Output Summary (Last 24 hours) at 07/25/2019 1004 Last data filed at 07/25/2019 0626 Gross per 24 hour Intake 240 ml Output 1340 ml Net -1100 ml #) Blood Pressures: Hypertension: - Home meds: coreg 50mg BID, clonidine 0.1mg BID, nifedipine 90mg BID (rather high dose), veudkoyxv28qt nightly, Torsemide held. - Per primary team [...] Mccracken MD Div. of Nephrology and Hypertension. Formerly [facility]. Cell: [phone]. E-mail: [email or web address]. Cosigned by Li Rossi MD at 07/25/2019 6:07 PM EST Associated attestation - Li Rossi MD - 07/25/2019 6:07 PM EST I have seen and examined the patient, reviewed the notes, assessments, and/or procedures performed by the fellow/resident/LABORER CONSTRUCTION OR LEAK GANG and I concur with her/his documentation of [...] Li Rossi MD, MS Division of Nephrology [facility] [address] [place], [place] * Maru Carlson - 07/25/2019 8:52 AM [...] the note. Marcelino Fox MD * Maru Carlson - 07/24/2019 9:53 AM EST Gastroenterology Progress [...] Medicine Progress Note Patient: Leoncio Rollins CSN: [id number] Chief Complaint Fever at OSH, elevated Cr History of Present Illness Loencio Rollins is a 44 y.o. male with [...] this encounter include the following: Principal Problem: Dziat-hx-wsyrwap kidney injury (CMS Dx) Today's updated plan: [...] file Gets together: Not on file Attends confucianist service: Not on file Active member of [...] the PM. 07/01/19 Malinda Rhodes MD lancets (Aftercad SoftwareUCH DELICA LANCETS) 33 gauge [facility] Use 1 strip as directed 4 times [...] Provider, pen needle, diabetic 32 gauge x 32 Ndle Use as directed to inject insulin 4 times daily. 10/16/17 Bere Feng CNP pen needle, diabetic 32 gauge x 532 [...] and appropriate, normal affect Laboratory Data Lab 07/23/1941307/22/19 0616 07/21/19 10407/21/19 013 WBC 4.4 5.1 5.9 5.7 HEMOGLOBIN 7.3* 7.9* 7.5* 7.3* HEMATOCRIT 22.4* 24.3* 23.5* 22.6* MEAN CORPUSCULAR VOLUME 83.0 82.9 83.6 84.1 PLATELETS 146 133* 131* 131* Lab 07/24/1932707/23/194 07/22/19 0616 07/21/19 1047 SODIUM 139 139 134 134 POTASSIUM 4.4 4.4 4.6 5.2 CHLORIDE 103 103 99 100 CO2 24 21 21 21 BUN 52* 64* 67* 63* CREATININE 6.40* 8.86* 9.07* 8.65* GLUCOSE 156* 107* 191* 182* Lab 07/24/19 0328 07/23/194 07/22/19 0616 07/21/19 1047 07/21/19 0133 07/19/19 2357 CALCIUM 7.1* 7.2* 7.3* 7.6* 7.4* < > 7.3* MAGNESIUM 1.9 2.0 1.9 -- -- -- 1.7 PHOSPHORUS 4.7 5.8* 5.9* -- 5.6* < > 4.9* < > = values in this interval not displayed. Lab 07/19/19 2357 INR 1.1 PROTHROMBIN TIME 15.0 Lab 07/24/198 07/23/19 0414 07/22/19 0616 07/21/19 0133 07/20/19 [...] Diet NPO past midnight starting at 07/23 1545 Code Status: Full Code Signed: STAN LARIOS [...] last 3 shifts: Date 07/23/19 07 - 07/24/1965807/24/19 07 - 07/25/19 0659 Shift 1574-6860 5796-9163 8128-1890 24 Hour Total 9770-8575 3764-0219 7769-0442 24 Hour Total INTAKE P.O. 100 5010 [...] CMV as above Dav Johnson MD 07/24/[phone] * Enrike Mccracken MD - 07/24/2019 8:57 AM EST Transplant Nephrology Consult - Progress Note Patient: Leoncio Rollins [id number] Date of Admit: 07/19/2019. LOS: 5 [...] abdominal swelling. He is sent here from [place] with fevers. He is still fevering all [...] Diet NPO past midnight starting at 07/23 2463 Access: Patient Lines/Drains/Airways Status Active Epidural Line [...] 07/19/2019 at Unknown time ??? blood-glucose meter (EndoclearTOUCH VERIO SYSTEM) Misc Use as instructed. 1 [...] (36.5 ??C) Heart Rate: [70-84] 77 Resp: [11-18] 18 BP: (127-175)/(74-98) 167/97 Patient Vitals for [...] 290 lb (131.5 kg). Date 07/23/19699 - [birth year]1959 07/24/19699 - 07/25/19 0659 Shift 6361-9406 4981-1758 1739-9467 24 Hour Total 1747-0087 3955-1156 3928-0900 24 Hour Total INTAKE P.O. 100 5010 [...] Component Value Date PCO2 34 (L) 10/09/2017 PUB5RCB 97.6 10/09/2017 Physical Exam General: A&Ox3, NAD, [...] CO2UR, CRUR No results found for: MICROALBUR, [id number] Lab Results Component Value Date PTH 164.0 (H) 01/14/2019 CALCIUM 7.1 (L) 07/24/2019 PHOS 4.7 07/24/2019 Lab Results Component Value Date QFVY44W 15.8 (L) 01/14/2019 Anemia Labs: Lab Results Component Value Date IRON 24 (L) 07/21/2019 TIBC 202 (L) 07/21/2019 FERRITIN 433.9 (H) 07/21/2019 Lab Results Component Value Date BZHYQEEI75 499 07/22/2019 Sepsis Marker Labs: No results for input(s): LACTATE in the last 72 hours. Lab Results Component Value Date FIBRINOGEN 454 (H) 07/20/2019 No results for input(s): TEGANGLE, TEGKTIME, OUOEFTQB69, TEGMAXAMPL, TEGRTIME, CBMZ in the last 72 [...] found for: HIV1X2 No results found for: TM5SRYQY No results found for: VDRLCSF Lab Results Component Value Date HEPAIGM Nonreactive 07/22/2019 HEPBCAB Nonreactive 07/22/2019 No results found for: FXE2W2CE No results found for: LJN0Z7KRJV Diagnostic Studies Renal Ultrasound: Results for orders [...] Rollins is a 44 y.o. male with Xqkzc-pz-rbaojwe kidney injury (CMS Dx). Medical problems being addressed in this encounter include the following: Principal Problem: Tckyw-cu-lkpskau kidney injury (CMS Dx) Active Problems: Group [...] 34 (L) 10/09/2017 PO2ART 123 (H) 10/09/2017 EXR7JKP 21 (L) 10/09/2017 BEART -2.9 (L) 10/09/2017 YVA8TGG 97.6 10/09/2017 #) Volume Status: - Euvolemic. Intake/Output Summary (Last 24 hours) at 07/24/2019 0850 Last data filed at 07/23/2019 2146 Gross per 24 hour Intake 5010 ml Output 550 ml Net 4460 ml #) Blood Pressures: Hypertension: - Home meds: coreg 50mg BID, clonidine 0.1mg BID, nifedipine 90mg BID (rather high dose), dewbayevw20au nightly, Torsemide held. - Per primary team [...] Continue IV iron. Please contact the social media community manager for an outpt spot for dialysis. Will try and establish him on TTS schedule Enrike Mccracken MD Div. of Nephrology and Hypertension. Formerly [facility]. Cell: [phone]. E-mail: [email or web address]. Cosigned by Li Rossi MD at 07/24/2019 7:23 PM EST Associated attestation - Li Rossi MD - 07/24/2019 7:23 PM EST I have seen and examined the patient, reviewed the notes, assessments, and/or procedures performed by the fellow/resident/LABORER CONSTRUCTION OR LEAK GANG and I concur with her/his documentation of [...] Li Rossi MD, MS Division of Nephrology [facility] [address] [facility], [place] * Gypsy Granados RN - 07/23/2019 6:47 [...] JUDI BATES RN Report Given To JUDI RN Machine Number: [id number] Hemodialysis Meds: Aranesp (Darbepoetin) [...] Consult - Progress Note Patient: Leoncio Rollins [id number] Date of Admit: 07/19/2019. LOS: 4 [...] abdominal swelling. He is sent here from [place] with fevers. He is still fevering all [...] 07/23/19 1018 [facility] than [facility] (06/23/2019 to 07/22/2019) Central line: [...] at Unknown time ??? blood sugar diagnostic [facility] Use to test blood sugar up to 4 times a day. Diagnosis for use: E 9.65. For use with One Touch Verio meters. 150 strip 5 07/19/2019 at Unknown time ??? blood-glucose meter (ONETOUCH VERIO SYSTEM) [facility] Use as instructed. 1 each 0 07/19/2019 [...] (136.9 kg). Date 07/22/19699 - 07/23/1965807/23/19699 - 07/24/19658 Shift 2792-8263 6392-3357 8339-4922 24 Hour Total 9018-0829 0087-8468 0822-2701 24 Hour Total INTAKE P.O. 360 120 [...] Component Value Date PCO2 34 (L) 10/09/2017 MBN8TUF 97.6 10/09/2017 Physical Exam General: A&Ox3, NAD, [...] 1960 07/22/19 1657 07/22/19 2135 07/23/19 1129 POCGMD [...] CO2UR, CRUR No results found for: MICROALBUR, [id number] Lab Results Component Value Date PTH 164.0 (H) 01/14/2019 CALCIUM 7.2 (L) 07/23/2019 PHOS 5.8 (H) 07/23/2019 Lab Results Component Value Date CEJC75L 15.8 (L) 01/14/2019 Anemia Labs: Lab Results Component Value Date IRON 24 (L) 07/21/2019 TIBC 202 (L) 07/21/2019 FERRITIN 433.9 (H) 07/21/2019 Lab Results Component Value Date WAROCNTG50 499 07/22/2019 Sepsis Marker Labs: No results for input(s): LACTATE in the last 72 hours. Lab Results Component Value Date FIBRINOGEN 454 (H) 07/20/2019 No results for input(s): TEGANGLE, TEGKTIME, JSKSJFEQ22, TEGMAXAMPL, TEGRTIME, CBMZ in the last 72 [...] found for: HIV1X2 No results found for: XB4TKBHD No results found for: VDRLCSF Lab Results Component Value Date HEPAIGM Nonreactive 07/22/2019 HEPBCAB Nonreactive 07/22/2019 No results found for: WUI0V3GX No results found for: MMW7J5LPWW Diagnostic Studies Renal Ultrasound: Results for orders [...] Rollins is a 44 y.o. male with Xnfqx-ir-krutspw kidney injury (CMS Dx). Medical problems being addressed in this encounter include the following: Principal Problem: Crezg-gy-zszapxo kidney injury (CMS Dx) Active Problems: Group [...] 34 (L) 10/09/2017 PO2ART 123 (H) 10/09/2017 MTC3TKS 21 (L) 10/09/2017 BEART -2.9 (L) 10/09/2017 WFS1ONA 97.6 10/09/2017 #) Volume Status: - Euvolemic. Intake/Output Summary (Last 24 hours) at 07/23/2019 1409 Last data filed at 07/23/2019 1230 Gross per 24 hour Intake 220 ml Output 1050 ml Net -830 ml #) Blood Pressures: Hypertension: - Home meds: coreg 50mg BID, clonidine 0.1mg BID, nifedipine 90mg BID (rather high dose), qtxuchlng56dm nightly, Torsemide held. - Per primary team [...] Mccracken MD Div. of Nephrology and Hypertension. [facility]. Cell: [phone]. E-mail: [email or web address]. Cosigned by Li Rossi MD at 07/23/2019 3:21 PM EST Associated attestation - Li Rossi MD - 07/23/2019 3:21 PM EST I have seen and examined the patient, reviewed the notes, assessments, and/or procedures performed by the fellow/resident/LABORER CONSTRUCTION OR LEAK GANG and I concur with her/his documentation of [...] Li Rossi MD, MS Division of Nephrology [facility] [address] [facility], [place] * Keon Brown MD - 07/23/2019 1:46 [...] 0700 ??? terazosin 10 mg Oral Nightly (2100) ??? valACYclovir 1,000 mg Oral 2 times per day Continuous Infusions: PRN Meds:acetaminophen, aluminum & magnesium hydroxide-simethicone AND lidocaine HCl, benzocaine-menthol, dextrose 10% in water OR dextrose 10% in water, gabapentin, glucose, melatonin, ondansetron, phenol, polyethylene glycol, traMADol Intake/Output last 3 shifts: Date 07/22/19699 - 07/23/1965807/23/19699 - 07/24/19658 Shift 5518-0816 2107-2594 1884-5343 24 Hour Total 2352-1459 2481-0003 2466-3740 24 Hour Total INTAKE P.O. 360 120 [...] MEAN CORPUSCULAR VOLUME 83.0 PLATELETS 146 Lab 07/23/19 0414 SODIUM 139 POTASSIUM 4.4 CHLORIDE 103 CO2 [...] CMV as above Dav Johnson MD 07/23/[phone] * NAVNEET Collins - 07/23/2019 9:40 AM EST Leoncio Rollins is a 44 y.o. male with history cirrhosos s/p OLT with fevers and CARMEN on CKD. 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 History of bacteremia, culture negative since 07/20/2019. [...] cultures have remained negative Consent obtained in TENZIN DAVE PA-C [phone] * Maru Carlson - 07/23/2019 8:25 AM [...] Medicine Progress Note Patient: Leoncio Rollins CSN: [id number] Chief Complaint Fever at OSH, elevated Cr [...] this encounter include the following: Principal Problem: Wgxez-is-ohearhl kidney injury (CMS Dx) Today's updated plan: - TDC today, [...] file Gets together: Not on file Attends confucianist service: Not on file Active member of [...] Feng CNP blood-glucose meter (ONETOUCH VERIO SYSTEM) [facility] Use as instructed. 10/18/17 Bere Feng CNP [...] every 8 hours as needed. 04/11/18 Historical ProviderMD pen needle diabetic 32 gauge x Ndle Use [...] 0414 07/22/19 0616 07/21/19 1047 07/21/19 0133 SODIUM 139 134 134 135 POTASSIUM 4.4 4.6 5.2 4.9 CHLORIDE 103 99 100 101 CO2 21 21 21 21 BUN 64* 67* 63* 61* CREATININE 8.86* 9.07* 8.65* 8.09* GLUCOSE 107* 191* 182* 190* Lab 07/23/194 07/22/19 0616 07/21/19104607/21/1913207/20/19 0607/19/19 2357 CALCIUM 7.2* 7.3* 7.6* 7.4* 7.4* 7.3* MAGNESIUM 2.0 1.9 -- -- -- 1.7 PHOSPHORUS 5.8* 5.9* -- 5.6* 4.1 4.9* Lab 07/19/19 2357 INR 1.1 PROTHROMBIN TIME 15.0 Lab 07/23/194 07/22/1916 07/21/1913207/20/19 0607/19/19 2357 07/18/19 0940 ALT -- 10 -- [...] except sips with meds starting at 07/22 3392 Code Status: Full Code Signed: KEON BROWN MD 07/23/2019, 7:42 AM Cosigned by Marcelino Fox MD at 07/24/2019 8:15 AM EST Associated attestation - Marcelino Fox MD - 07/24/2019 8:15 AM EST Found [...] in the note. Marcelino Fox MD * Satn Larios, DO - 07/22/2019 4:25 PM EST Department of Internal Medicine Progress Note Patient: Leoncio Rollins CSN: [id number] Chief Complaint Fever at OSH, elevated Cr [...] this encounter include the following: Principal Problem: Lcssm-yu-ljqmznv kidney injury (CMS Dx) Today's updated plan: 1) TTE to [...] file Gets together: Not on file Attends confucianist service: Not on file Active member of [...] Provider, pen needle, diabetic 32 gauge x 32 Ndle Use as directed to inject insulin 4 times daily. 10/16/17 Bere Feng CNP pen needle, diabetic 32 gauge x 532 [...] Data Lab 07/22/19 0616 07/21/19 1047 07/21/19 01307/20/19 06 WBC 5.1 5.9 5.7 5.5 HEMOGLOBIN 7.9* 7.5* 7.3* 6.7* HEMATOCRIT 24.3* 23.5* 22.6* 21.0* MEAN CORPUSCULAR VOLUME 82.9 83.6 84.1 83.5 PLATELETS 133* 131* 131* 134* Lab 07/22/19 0616 07/21/19 1047 07/21/19 01307/20/19627 SODIUM 134 134 135 132* POTASSIUM 4.6 5.2 4.9 4.9 CHLORIDE 99 100 101 101 CO2 21 21 21 19* BUN 67* 63* 61* 57* CREATININE 9.07* 8.65* 8.09* 7.70* GLUCOSE 191* 182* 190* 220* Lab 07/22/19 0616 07/21/19 1047 07/21/19 01307/20/1928 07/19/19 235 CALCIUM 7.3* 7.6* 7.4* 7.4* 7.3* MAGNESIUM 1.9 -- -- -- 1.7 PHOSPHORUS 5.9* -- 5.6* 4.1 4.9* Lab 07/19/192356 INR 1.1 PROTHROMBIN TIME 15.0 Lab 07/22/19 0616 07/21/19 01307/20/1928 07/19/197 07/18/19 0940 ALT 10 -- 8 6* [...] except sips with meds starting at 07/22 6019 Diet renal starting at 07/22 0739 Code [...] the note. Marcelino Fox MD * Patricia Nick, PT - 07/22/2019 1:23 PM EST Physical Therapy Initial Assessment Name: Leoncio Rollins : 1975 Attending Physician: Marcelino Fox MD Admission Diagnosis: HYPERTENSION / S/P LIVER TXPLANT Date: 07/22/2019 Room: [email or web address] Reviewed Pertinent hospital course: Yes Hospital Course [...] to enter;with railing Stairs to enter: 6 ED Home Layout: One level Bathroom Shower/Tub: Walk-in [...] up / down stairs: Will tolerate assessment Antique Furniture Restorer Goal : =STG Patient Stated Goal #1: [...] Patricia Romero, PT, DPT Physical Therapist Pager #[phone] Time Start Time: 1112 Stop Time: 1130 [...] 3, GFR 30-59 ml/min (CMS Dx) ??? Kqqye-ai-fxcvgwe kidney injury (CMS Dx) ??? Metabolic acidosis [...] Consult - Progress Note Patient: Leoncio Rollins [id number] 8034/[id number] Date of Admit: 07/19/2019. LOS: 3 days. Referring physician: Marcelino Fox MD Date: 07/22/2019 Reason for Consult Acute Kidney Injury (CARMEN) [...] abdominal swelling. He is sent here from [place] with fevers. He is still fevering all [...] except sips with meds starting at 07/22 3947 Diet renal starting at 07/22 0739 Access: [...] 07/19/2019 at Unknown time ??? blood-glucose meter (HealthSpot VERIO SYSTEM) [facility] Use as instructed. 1 each 0 07/19/2019 [...] 301 lb 14.4 oz (136.9 kg). Date 07/21/19699 - [birth year]/1959 07/22/19 07 - 07/23/19 0659 Shift 7107-2116 2280-6857 6412-5553 24 Hour Total 8505-1245 0696-7060 5221-0551 24 Hour Total INTAKE P.O. 360 616 719 0458 120 120 P.O. 360 164 725 0812 120 120 Shift Total(mL/kg) 360(2.6) 840(6.1) 478(3.5) 1678(12.3) 120(0.9) 120(0.9) OUTPUT Urine(mL/kg/hr) 200(0.2) 400(0.4) 750(0.7) 1350(0.4) 100 100 Urine 200 556 529 9898 100 100 Urine Occurrence 1 x 1 [...] Component Value Date PCO2 34 (L) 10/09/2017 [id number] 97.6 10/09/2017 Physical Exam General: A&Ox3, NAD, [...] 82.9 PLT 131* 131* 133* Recent Labs 07/19/19235607/20/1962707/21/1913207/21/19 1047 07/22/19 0616 NA 134 132* 135 [...] 07/21/19 1044 07/21/19 1331 07/21/19 1828 07/21/19 195 POCGMD 272* 195* 150* 135* 151* 184* [...] CLUR 22 No results found for: MICROALBUR, [id number] Lab Results Component Value Date PTH 164.0 (H) 01/14/2019 CALCIUM 7.3 (L) 07/22/2019 PHOS 5.9 (H) 07/22/2019 Lab Results Component Value Date NDIJ41C 15.8 (L) 01/14/2019 Anemia Labs: Lab Results Component Value Date IRON 24 (L) 07/21/2019 TIBC 202 (L) 07/21/2019 FERRITIN 433.9 (H) 07/21/2019 Lab Results Component Value Date [id number] 499 07/22/2019 Sepsis Marker Labs: Recent Labs 07/20/19 0021 LACTATE 0.7 Lab Results Component Value Date FIBRINOGEN 454 (H) 07/20/2019 No results for input(s): TEGANGLE, TEGKTIME, AFKDCGGR95, TEGMAXAMPL, TEGRTIME, CBMZ in the last 72 [...] found for: HIV1X2 No results found for: GT3QOISV No results found for: VDRLCSF Lab Results Component Value Date HEPAIGM Nonreactive 08/21/2017 HEPBCAB Nonreactive 12/13/2018 No results found for: DYE8D6PJ No results found for: LLQ3T1PBXV Diagnostic Studies Renal Ultrasound: Results for orders [...] Rollins is a 44 y.o. male with Fpipw-lo-fmetunu kidney injury (CMS Dx). Medical problems being addressed in this encounter include the following: Principal Problem: Mpren-gs-vclrsgl kidney injury (CMS Dx) Active Problems: Group [...] 34 (L) 10/09/2017 PO2ART 123 (H) 10/09/2017 XAN4WVX 21 (L) 10/09/2017 BEART -2.9 (L) 10/09/2017 HMK3VVJ 97.6 10/09/2017 #) Volume Status: - Euvolemic. Intake/Output Summary (Last 24 hours) at 07/22/2019 1252 Last data filed at 07/22/2019 0835 Gross per 24 hour Intake 1438 ml Output 1250 ml Net 188 ml #) Blood Pressures: Hypertension: - Home meds: coreg 50mg BID, clonidine 0.1mg BID, nifedipine 90mg BID (rather high dose), [id number] nightly, Torsemide held. - Per primary team [...] Mccracken MD Div. of Nephrology and Hypertension. Formerly [facility]. Cell: [phone]. E-mail: [email or web address]. Cosigned by Li Rossi MD at 07/22/2019 1:09 PM EST Associated attestation - Li Rossi MD - 07/22/2019 1:09 PM EST I have seen and examined the patient, reviewed the notes, assessments, and/or procedures performed by the fellow/resident/LABORER CONSTRUCTION OR LEAK GANG and I concur with her/his documentation of [...] Li Rossi MD, MS Division of Nephrology [facility] [address] [facility], [place] [address] * Maru Carlson - 07/22/2019 11:38 AM [...] CT head: normal, no bleed O: Vitals: 07/22/19 0922 BP: 132/68 Pulse: 65 Resp: 16 Temp: [...] today in resident's progress note * Radha Nagel, OT - 07/22/2019 10:26 AM EST Occupational Therapy Initial Assessment and Discharge Name: Leoncio Rollins : 1975 Attending Physician: Marcelino Fox MD Admission Diagnosis: HYPERTENSION / S/P LIVER TXPLANT Date: 07/22/2019 Room: 8034/U8034 Reviewed Pertinent hospital course: Yes [...] enter, with railing Stairs to enter: 6 ED Home Layout: One level Bathroom Shower/Tub: Walk-in [...] 30 Min: 1 Procedure Radha Nagel OTR/L [facility] Rehabilitation Services Rehab Department Pager: Problem [...] 3, GFR 30-59 ml/min (CMS Dx) ??? Uceig-pp-vgmqlrb kidney injury (CMS Dx) ??? Metabolic acidosis [...] 07/22/2019 4:54 PM EST Associated attestation - Juan Luis Chávez, Ovi Campos MD - 07/22/2019 4:54 PM EST Images [...] tomorrow Ovi Mcknight M.D. Infectious Diseases Pager: [phone] * Lashell Fountain, RICARDO - 07/22/2019 12:24 AM EST Patient requested Bipap setup and placed in standby. Assessed patient x2 for readiness, pt declinedbipap both encounters. Patient placed on 2L NC for sleep. * Carlos Eduardo Mcknight, PharmD - 07/21/2019 12:34 PM EST Images from the original note were not included. [facility] Clinical Pharmacy Service: Vancomycin Monitoring Consult Vancomycin discontinued per team. Pharmacy will sign off vancomycin consult. Thank you for the opportunity to participate in the care of Leoncio Rollins. Pharmacy will continue to follow. Carlos Eduardo Mcknight, PharmD, OP Hem/Onc/BMT Grinder Operator [address] [place] [address] office: [phone] fax: [phone] Pager: [phone] 07/21/2019 * R Jas Jung MD - 07/21/2019 9:55 AM EST Nephrology Consult - Progress Note Patient: Leoncio Rollins [id number] 8034/U8034 Date of Admit: 07/19/2019. LOS: 2 [...] abdominal swelling. He is sent here from [place] with fevers. He is still fevering all [...] Orders Diet renal starting at 07/19 2314 Access: Patient Lines/Drains/Airways Status Active Epidural Line / PICC Line / PIV Line / ART Line / Line / CVC Line Name: Placement date: Placement time: Site: Days: Peripheral IV 07/20/19 Right Antecubital 07/20/19 1503 Antecubital less than 1 NHSN Device Days (06/21/2019 to 07/20/2019) Central line: [...] time ??? blood-glucose meter (ONETOUCH VERIO SYSTEM) [facility] Use as instructed. 1 each 0 07/19/2019 [...] 07/20/19699 - 07/21/1965807/21/19699 - 07/22/19 0659 Shift 6677-2054 8632-1640 1242-3704 24 Hour Total 6171-3468 8678-1279 0515-6515 24 Hour Total INTAKE P.O. 240 0 [...] Component Value Date PCO2 34 (L) 10/09/2017 [id number] 97.6 10/09/2017 Physical Exam General: A&Ox3, NAD, [...] difficulty, grossly intact Laboratory Data Recent Labs 07/19/19235607/20/19 0628 07/21/19 0133 WBC 7.1 5.5 5.7 HGB 7.4* 6.7* 7.3* HCT 23.0* 21.0* 22.6* MCV 84.3 83.5 84.1 PLT 149 134* 131* Recent Labs 07/19/19 23507/20/19 0628 07/21/19 0133 NA 134 132* 135 K 5.4* 4.9 4.9 CL 101 101 101 CO2 19* 19* 21 BUN 58* 57* 61* CREATININE 7.45* 7.70* 8.09* GLUCOSE 270* 220* 190* CALCIUM 7.3* 7.4* 7.4* MG 1.7 -- -- PHOS 4.9* 4.1 5.6* ANIONGAP 14 12 13 Recent Labs 07/19/192356 INR 1.1 PROTIME 15.0 FSBS Range: Recent Labs 07/19/19 2345 07/20/19 0833 07/20/19 1214 07/20/19 1703 07/20/19 2121 POCGMD 272* 195* 150* 135* 151* Recent Labs 07/19/197 07/20/19 0628 ALT 6* 8 AST 12* [...] CLUR 22 No results found for: MICROALBUR, [id number] Lab Results Component Value Date PTH 164.0 (H) 01/14/2019 CALCIUM 7.4 (L) 07/21/2019 PHOS 5.6 (H) 07/21/2019 Lab Results Component Value Date SCOA03T 15.8 (L) 01/14/2019 Anemia Labs: Lab Results Component Value Date IRON 51 05/15/2019 TIBC 266 05/15/2019 FERRITIN 225 05/15/2019 Lab Results Component Value Date OYYSUBDQ41 525 05/15/2019 Sepsis Marker Labs: Recent Labs 07/20/19 0021 LACTATE 0.7 Lab Results Component Value Date FIBRINOGEN 454 (H) 07/20/2019 No results for input(s): TEGANGLE, TEGKTIME, FTQEZUEU93, TEGMAXAMPL, TEGRTIME, CBMZ in the last 72 [...] found for: HIV1X2 No results found for: OA7NQDBU No results found for: VDRLCSF Lab Results Component Value Date HEPAIGM Nonreactive 08/21/2017 HEPBCAB Nonreactive 12/13/2018 No results found for: AOM8Q2FK No results found for: FWO6T6WVGE Diagnostic Studies Renal Ultrasound: Results for orders [...] Rollins is a 44 y.o. male with Blugc-xr-xpydpce kidney injury ([facility] Dx). Medical problems being addressed in this encounter include the following: Principal Problem: Ugrgv-hx-kojdrcb kidney injury (CMS Dx) Active Problems: Group [...] 34 (L) 10/09/2017 PO2ART 123 (H) 10/09/2017 [id number] 21 (L) 10/09/2017 BEART -2.9 (L) 10/09/2017 HMT1RFS 97.6 10/09/2017 #) Volume Status: - Euvolemic to Hypovolemic. Intake/Output Summary (Last 24 hours) at 07/21/2019 0955 Last data filed at 07/21/2019 0700 Gross per 24 hour Intake 1305 ml Output 450 ml Net 855 ml #) Blood Pressures: Hypertension: - Home meds: coreg 50mg BID, clonidine 0.1mg BID, nifedipine 90mg BID (rather high dose), [id number] nightly, Torsemide held. - Per primary team [...] notes, assessments, and/or procedures performed by the fellow/resident/LABORER CONSTRUCTION OR LEAK GANG and I concur with her/his documentation of [...] Medicine Progress Note Patient: Leoncio Rollins CSN: [id number] Chief Complaint Fever at OSH, elevated Cr [...] this encounter include the following: Principal Problem: Caght-rj-dygudhx kidney injury ([facility] Dx) Today's updated plan: 1) Getting CT [...] injury - bicarb 19 on admission to [facility] - continue sodium bicarb as patient takes [...] file Gets together: Not on file Attends confucianist service: Not on file Active member of [...] mg by mouth at bedtime. Historical Provider, MD carvedilol (COREG) 25 MG tablet Take 2 [...] Provider, pen needle, diabetic 32 gauge x 532 Ndle Use [...] and appropriate, normal affect Laboratory Data Lab 07/21/1913207/20/1962707/19/19235607/18/19 0940 WBC 5.7 5.5 7.1 4.37 HEMOGLOBIN 7.3* 6.7* 7.4* 12.8* HEMATOCRIT 22.6* 21.0* 23.0* 41 MEAN CORPUSCULAR VOLUME 84.1 83.5 84.3 85.1 PLATELETS 131* 134* 149 134 Lab 07/21/1913207/20/1962707/19/19235607/18/19 0940 SODIUM 135 132* 134 141 POTASSIUM [...] 3.2* 3.2* 3.3* 3.3* 4.2 Lab 07/20/19 06 COLOR, URINE Yellow CLARITY Cloudy* SPECIFIC GRAVITY, [...] Result IMPRESSION: Negative portable chest. Approved by eFlice Arnett MD on 07/20/2019 5:57 AM EST [...] and all questions answered. Teri Choi MD Corporate Communications Associate Division of Digestive Diseases * Mukul Chu DO - 07/21/2019 4:42 AM EST Night Team [...] Medicine Progress Note Patient: Leoncio Rollins CSN: [id number] Chief Complaint Fever at OSH, elevated Cr [...] this encounter include the following: Principal Problem: Tazqk-sy-booitdj kidney injury ([facility] Dx) Today's updated plan: 1) Getting urine [...] WBC 7, lactate 0.7 on admission to [facility] - UA at OSH + for blood [...] injury - bicarb 19 on admission to [facility] - continue sodium bicarb as patient takes [...] file Gets together: Not on file Attends confucianist service: Not on file Active member of [...] Feng CNP blood-glucose meter (ONETOUCH VERIO SYSTEM) [facility] Use as instructed. 10/18/17 Bere Feng CNP [...] Provider, pen needle, diabetic 32 gauge x 32 Ndle Use as directed to inject insulin 4 times daily. 10/16/17 Bere Feng CNP pen needle, diabetic 32 gauge x 532 Ndle For use with insulin pen. Use as instructed. 10/16/17 Bere Feng CNP polyethylene glycol (MIRALAX) 17 gram packet Take 17 g by mouth 2 times a day as needed. 01/17/19 Niurka aVlles MD sodium bicarbonate 650 MG tablet Take [...] from the same date. Teri Choi MD Corporate Communications Associate Division of Digestive Diseases * Nani Brooks PharmD - 07/20/2019 11:24 AM EST Images from the original note were not included. [facility] Clinical Pharmacy Service: Vancomycin Monitoring Consult --Assessment and Plan-- Assessment CARMEN on CKD Plan No additional doses of vancomycin today Vancomycin level with AM labs Monday, ~ 24 hour level Nani Brooks PharmD, [facility] pager [phone] Clinical Pharmacist, Internal Medicine [Clinical Pharmacist occupational therapy aides teacher [phone]] Indication: empiric treatment for fevers in immunocompromised [...] hours) Date/Time Action Medication Dose Rate 07/20/19 0519 Given vancomycin (VANCOCIN) 3,000 mg in sodium [...] 7 days) WBC BUN Creatinine 5.5 10E3/uL 07/20/1928 57 mg/dL 07/20/19627 7.70 mg/dL 07/20/19627 7.1 10E3/uL 07/19/192356 58 mg/dL 07/19/192356 7.45 mg/dL 07/19/192356 4.37 10^3/mL 07/18/19939 20 mg/dL 07/18/19939 1.75 mg/dL 07/18/19939 Simla body weight: 66.1 kg (145 lb 11.6 oz) Adjusted ideal body weight: 94.5 kg (208 lb 5.7 oz) --Cultures-- Microbiology Results Date and Time Order Name Sensitivity Status Organisms Specimen ID Source 07/20/2019 0606 Urine culture In process [id number] Urine 07/20/2019 0128 Blood culture-Peripheral Preliminary [id number] Peripheral 07/19/2019 235 Blood culture-Peripheral Preliminary [id number] Peripheral --Vancomycin Concentrations-- Lab Results (Last 7 [...] Pineda MD - 07/24/2019 12:50 PM EST [facility] PRE-SEDATION ASSESSMENT, HISTORY & PHYSICAL Date: 07/24/2019 [...] 3, GFR 30-59 ml/min (CMS Dx) ??? Nqdiq-ba-vpqkmfn kidney injury (CMS Dx) ??? Metabolic acidosis [...] hours as needed. 04/11/18 Yes Historical Provider, pen needle, diabetic 32 gauge x 532 Ndle Use as directed to inject insulin 4 times daily. 10/16/17 Yes Bere Feng CNP pen needle, diabetic 32 gauge x 532 [...] in the note. Rakesh Ordoñez MD Transplant Shot Core Drill Operator * Alicia Cervantes DO - 07/20/2019 5:17 AM EST Department of Internal Medicine History & Physical Patient: Leoncio Rollins CSN: [id number] Chief Complaint Fever at OSH, elevated Cr [...] source for infection.Pt was then transferred to [facility] On exam today, pt states he has [...] file Gets together: Not on file Attends confucianist service: Not on file Active member of [...] 10/17/17 Bere Feng CNP blood sugar diagnostic [facility] Use to test blood sugar up to 4 times a day. Diagnosis for use: E 9.65.For use with One Touch Verio meters. 10/18/17 Bere Feng CNP blood-glucose meter (ONETOUCH VERIO SYSTEM) [facility] Use as instructed. 10/18/17 Bere Feng CNP [...] the PM. 07/01/19 Malinda Rhodes MD lancets (EndoclearTOUCH DELICA LANCETS) 33 gauge Misc Use 1 [...] Provider, pen needle diabetic 32 gauge x 532 [...] VOLUME 84.3 85.1 PLATELETS 149 134 Lab 07/19/19 2357 07/18/19 0940 SODIUM 134 141 POTASSIUM 5.4* 4.5 CHLORIDE 101 106 CO2 19* 18 BUN 58* 20 CREATININE 7.45* 1.75* GLUCOSE 270* 169 Lab 07/19/19 2357 07/18/19 0940 CALCIUM 7.3* 9.2 MAGNESIUM 1.7 -- PHOSPHORUS 4.9* 2.9 Lab 07/19/19 2357 INR 1.1 PROTHROMBIN TIME 15.0 Lab 07/19/19 [...] this encounter include the following: Principal Problem: Ukezl-hv-mlmrxrz kidney injury (CMS Dx) #Fever in immunocompromised patient - pt [...] WBC 7, lactate 0.7 on admission to [facility] - UA at OSH + for blood [...] injury - bicarb 19 on admission to [facility] - continue sodium bicarb as patient takes [...] Diet Orders Diet renal starting at 07/19 3184 Code Status: Full Code Signed: ALICIA CERVANTES [...] panel. -check tacro levels. Teri Choi MD Corporate Communications Associate Division of Digestive Diseases documented in this encounter Procedure Notes * Arnold Ordoñez MD - 07/24/2019 1:00 PM EST [id number] Procedure Date: 07/24/2019 1:00 PM Patient Name: [...] pathology results. Procedure Code(s): --- Professional --- 14315, GC, Esophagogastroduodenoscopy, flexible, transoral; with biopsy, single or multiple Diagnosis Code(s): --- Professional --- K22.8, Other specified diseases of esophagus K44.9, Diaphragmatic hernia without obstruction or gangrene K31.89, Other diseases of stomach and duodenum R13.10, Dysphagia, unspecified CPT copyright 2016 [employer]. All rights reserved. The codes documented in this report are preliminary and upon reservoir caretaker review may be revised to meet current [...] In: 1:09:18 PM Scope Out: 1:12:[address] [place] [address] * NAVNEET Collins - 07/23/2019 10:35 AM [...] in EPIC Procedures (or EPIC Imaging) Tabs. 07/23/2019, 10:36 AM. Please call with any questions. NAVNEET COLLINS Interventional Radiology 07/23/2019, 10:36 AM [facility] IR Desk: [facility] IR: IR On-Call (after-hours, nights, wkds, [...] Winchester MD Interventional Radiology 07/23/2019, 10:13 PM [facility] IR Desk: [facility] IR: IR On-Call (after-hours, nights, wkds, holidays): documented in this encounter Consult Notes * RADHA Mead, APPLICATION RELEASE MANAGER - 07/23/2019 3:28 PM EST [facility] Social Work Psychosocial Assessment Leoncio Rollins [id number] 44 y.o. male White or Marital Status: [...] apply): One Story Support Systems Next of Kin/Guide Visitor: Kym Rollins Next of Kin Relationship: Spouse Next of Kin Kimberly Rollins, mother, Community Resources Used Prior to Admission: No Cultural/Spiritual/Language Barriers Christianity/Cultural Factors: Faith Other Pertinent Data Television Newscast Director for Mental Health IssuesPrior to Admission: No Durable Medical Equipment Prior to Admission: Yes Durable Medical Type of Equipment: Rolling Walker Name/number of PCP: Edgar Fournier [phone] Pharmacy: [facility] [phone] Assessment/Plan Per H&P documentation: Leoncio Rollins is [...] his spouse at their home located in [place], [place]. Per chartpatient is disabled due to his medical condition. Patient reports his primary support system include s his spouse, Kym [phone], and mother, Kimberly [phone]. Patient has three children. SW discussed dialysis set-up with patient and his spouse. Patient would like to try to obtain a chair at [facility] in [place], [place] , F: [phone]. If unable to obtain fromther, he would like to look at facilities in [place], [place]; [facility] or [facility] Patient reports no current or past history of suicidal/homicidal ideation. Patient denies any history of mental health diagnoses and/or concerns. Patient reports no history of alcohol and/or illicit drug abuse. Per chart, patient has previously been active with [facility] [phone]. No previous placements at residential facility and/or inpatient rehab program. Per chart patient was also set up for oxygen services post-transplant through [facility]. Patient has utilized a rolling walker in the past. Patient has therapy recs for outpatient PT, will have team write a script upon discharge. SW contacted [facility] and staff stated they do have chair times available for a TTS schedule. SWsent referral via fax to [facility] admissions; [id number], F: [phone]. Willfollow-up accordingly. SW's contact information provided to [...] reviewed with the multi-disciplinary team. RADHA Mead, APPLICATION RELEASE MANAGER Inpatient High School Counselor GI Service [phone] * Nadya Tomas RD - 07/23/2019 11:30 AM ESTAssociated Order(s): IP CONSULT TO NUTRITION SERVICES Received nutrition consult for Renal diet education. Visited patient this morning, family present. Provided written and verbal Renal diet recommendations including sodium, phosphorus, and potassium limitations. Answered questions and made patient and family aware of RD availability for any further q uestions/concerns. Nadya Tomas RD, LD Clinical Dietitian Pager#[phone] * Eris Nguyen MD - 07/22/2019 2:18 [...] He was on his way to a [place] and reports that as he got out [...] home. RELEVANT LIVER HISTORY: He received a [facility] high risk donor, who was HBV [...] ??? lancets (ONETOUCH DELICA LANCETS) 33 gauge [facility] Use 1 strip as directed 4 times [...] in the note. Rakesh Ordoñez MD Transplant Shot Core Drill Operator * NAVNEET Canales - 07/22/2019 11:06 AM EST Interventional Radiology Consult Note Date: 07/22/2019 Patient: Leoncio Rollins : 1975 Primary Care Provider: Edgar Fournier MD Reason for Consult: Venous access IR Procedure Request Received and Reviewed. HPI: Leoncio Rollins is a 44 y.o. male with history cirrhosos s/p OLT with fevers and CARMEN on CKD. 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 History of bacteremia, culture negative since 07/20/2019. [...] tablet blood sugar diagnostic Strp blood-glucose meter (HealthSpot VERIO SYSTEM) Misc carBAMazepine (TEGRETOL) 200 mg [...] KWIKPEN) 100 unit/mL (3 mL) InPn lancets (ONETOUCH DELICA LANCETS) 33 gauge Misc mycophenolate (CELLCEPT) [...] Daily with breakfast carBAMazepine, 200 mg, Nightly (2100) carvedilol, 50 mg, BID WC cefTRIAXone (ROCEPHIN) IVPB, 2 g, Q24H cloNIDine HCl, 0.1 mg, BID [START ON 07/27/2019] entecavir, 0.5 mg, Q7 Days ergocalciferol, 50,000 Units, Weekly famotidine, 20 mg, Daily 0900 insulin lispro, 0-4 Units, Nightly (2100) insulin lispro, 0-5 Units, TID AC insulin lispro, 3 Units, TID AC insulin NPH, 18 Units, Daily 0900 insulin NPH, 6 Units, Nightly (2099) lidocaine, 1 patch, Q24H NIFEdipine, 90 mg, BID sodium bicarbonate, 1,300 mg, BID tacrolimus ER (24 HR), 3 mg, DAILY 0700 terazosin, 10 mg, Nightly (2099) IV Meds: [...] CALCIUM 7.4* 7.4* 7.6* 7.3* Recent Labs 07/19/19235607/20/1962707/22/1916 BILITOT 0.3 0.3 0.3 AST 12* 15 11* ALT 6* 8 10 ALKPHOS 98 87 81 Recent Labs 07/19/19235607/20/1962707/21/19 0133 07/22/1916 ALBUMIN 3.3* 3.3* 3.2* 3.2* 3.1* 3.0* 3.0* BILIDIRECT 0.05 0.07 -- 0.04 Recent Labs 07/19/192356 INR 1.1 PROTIME 15.0 Imaging: No results [...] NAVNEET CANALES Interventional Radiology 07/22/2019, 11:06 AM [facility] IR Desk: [facility] IR: IR On-Call (after-hours, nights, wkds, holidays): * Nadya Devries MD - 07/20/2019 7:40 PM ESTAssociated Order(s): INPATIENT CONSULT TO TRANSPLANT INFECTIOUS DISEASES [facility] DEPARTMENT OF INFECTIOUS DISEASE INITIAL NOTE Referring Physician: Marcelino Fox MD Consult Attending: Nadya Devries MD Patient: Leoncio Rollins CSN: [id number] Reason for Consult: Group C Strep bacteremia, [...] here for IVF, req'd blood xfusion. Home 18 Jun and felt back to normal. ~5 days ago he noted sore throat and fell on his L side/abd; next day had runny nose, sinus congestion; next day fell on his butt. Remained off balance but denies fever, malaise. Went to ED in [place], [place] yesterday c/o weakness, found to have [...] file Gets together: Not on file Attends confucianist service: Not on file Active member of [...] Refills: 5 blood-glucose meter (ON[facility]OUCH VERIO SYSTEM) [facility] Use as instructed. Qty: 1 each, Refills: [...] Refills: 11 Associated Diagnoses: S/P liver transplant (CMS Dx); Gastroesophageal reflux disease, esophagitis presence not specified; CKD (chronic kidney disease) stage 3, GFR 30-59 ml/min (CMS Dx); Immunosuppression (CMS Dx) ergocalciferol (VITAMIN D2) 50,000 unit capsule [...] Refills: 5 Associated Diagnoses: S/P liver transplant ([facility] HOSPITAL Dx); Hyperglycemia lancets (ONETOUCH DELICA LANCETS) 33 gauge Misc Use 1 strip as directed 4 times daily before meals and at bedtime. Qty: 150 each, Refills: 5 mycophenolate (CELLCEPT) 250 mg capsule Take 3 capsules (750 mg total) by mouth 2 times a day. Qty: 180 capsule, Refills: 5 Associated Diagnoses: S/P liver transplant (CMS Dx); Immunosuppression (CMS Dx) NIFEdipine (PROCARDIA-XL) 90 MG (OSM) 24 [...] Diagnoses: S/P liver transplant (CMS Dx); Immunosuppression (CMS Dx) torsemide (DEMADEX) 20 MG tablet Take [...] or lesions Laboratory Data Lab name 07/09/19 1037 07/18/1941 07/19/19235607/20/19627 WBC 2.9 4.37 7.1 5.5 HEMOGLOBIN 9.4* 12.8* 7.4* 6.7* HEMATOCRIT 29.5* 41 23.0* 21.0* MEAN CORPUSCULAR VOLUME 85 85.1 84.3 83.5 PLATELETS 220 134 149 134* Lab name 01/16/19 0427 01/17/19 0532 06/28/19 0427 07/09/19 1037 07/18/19 0940 07/19/19235607/20/1928 SODIUM 140 141 < > 140 < [...] 06/29/19 0544 07/09/19 1037 07/18/19 0940 07/19/19 2357 07/20/19 0628 ALT 10 -- 11 -- 19 [...] Active Hospital Problems Diagnosis Date Noted ??? Kodiu-qp-iajkqks kidney injury ([facility] Dx) [N17.9, N18.9] 01/12/2019 ??? Group C [...] Signed: Nadya Devries MD 07/20/2019, 8:52 PM [phone] [facility] [phone] cell * R Jas Jung MD - 07/20/2019 4:15 PM ESTAssociated Order(s): IP CONSULT TO RENAL; IP CONSULT TO RENAL Nephrology Consult H&P Initial Consult Note Patient: Leoncio Rollins [id number] Date of Admit: 07/19/2019. LOS: 1 [...] abdominal swelling. He is sent here from [place] with fevers. He is still fevering all [...] Orders Diet renal starting at 07/19 2314 Access: Patient Lines/Drains/Airways Status Active Epidural Line [...] at Unknown time ??? blood sugar diagnostic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 Marcelino Fox MD LAB BLOOD ORDERABLES Final Re sult [facility] [address] [place] [address], [facility] * (ABNORMAL) CBC, AM (07/23/2019 4:14 AM EST) WBC 4.4 3.8 - 10.8 10E3/uL 07/23/2019 5:29 AM EST [facility] RBC 2.70(L) 4.20 - 5.80 10E6/uL 07/23/2019 5:29 AM [facility] Hemoglobin 7.3(L) 13.2 - 17.1 g/dL 07/23/2019 5:29 AM EST [facility] Hematocrit 22.4(L) 38.5 - 50.0 % 07/23/2019 5:29 AM [facility] MCV 83.0 80.0 - 100.0 fL 07/23/2019 5:29 AM EST [facility] MCH 27.0 27.0 - 33.0 pg 07/23/2019 5:29 AM [facility] MCHC 32.5 32.0 - 36.0 g/dL 07/23/2019 5:29 AM [facility] RDW 13.9 11.0 - 15.0 % 07/23/2019 5:29 AM [facility] Platelets 146 140 - 400 10E3/uL 07/23/2019 5:29 AM [facility] MPV 8.2 7.5 - 11.5 fL 07/23/2019 5:29 AM [facility] Whole blood specimen (specimen) 07/23/2019 4:14 AM EST 07/23/2019 5:17 AM EST us Marcelino Fox MD LAB BLOOD ORDERABLES Final Re sult [facility] [address] [id number] * (ABNORMAL) POC Glucose Monitoring Device (07/22/2019 9:35 PM EST) POC Glucose Monitoring Device 159(H) 70 - 100 mg/dL 07/22/2019 9:35 PM EST [facility] Blood specimen (specimen) 07/22/2019 9:35 PM EST 07/22/2019 9:35 PM EST us Marcelino Fox MD POINT OF CARE TEST ORDERABLES Final Result [facility] [address] * (ABNORMAL) POC Glucose Monitoring Device (07/22/2019 4:57 PM EST) POC Glucose Monitoring Device 124(H) 70 - 100 mg/dL 07/22/2019 4:58 PM EST [facility] Blood specimen (specimen) 07/22/2019 4:57 PM EST 07/22/2019 4:58 PM EST Marcelino Fox MD POINT OF CARE TEST ORDERABLES Final Result Performing Organization Address City/[facility] Co de Phone Number [facility] [address] [facility]. [address] * Herpes Simplex 1 & 2, Real-time PCR (07/22/2019 3:50 PM EST) Pathologist [facility] HSV 1, PCR Not Detected Not Detected 07/24/2019 12:07 PM EST [facility] HSV 2 , PCR Not Detected Not Detected 07/24/2019 12:07 PM EST [facility] Comment: This test is an FDA-approved nucleic acid amplification test that detects HSV types 1 and 2 from mucocutaneous and cutaneous swab specimens. Performance characteristics of the test on BAL fluid, plasma and CSF have been determined by [facility] as a laboratory-developed test. For HSV type 1, the limit of detection (LoD) was determined to be 3.4 x10?? TCID50/mL for CSF, 3.4 x10?? TCID50/mL for plasma, and 3.4 x10?? TCID50/mL for BAL specimens. For HSV type 2, LoD was determined to be 5.0 x10? TCID50/mL for CSF, 5.0 x10?TCID50/mL for plasma, and 5.0 x10?? TCID50/mL for BAL specimens. [facility] is certified under the Clinical Laboratory [...] 3:50 PM EST 07/23/2019 2:09 PM EST us Marcelino Fox MD BODY FLUIDS AND STOOLS ORDERA BLES Final Result [facility] [address] * Echo 2D Comp. w/Contrast (TTE) (07/22/2019 3:09 PM EST) 07/22/2019 2:18 PM EST Narrative [facility] - 07/22/2019 6:29 PM EST ?* [facility]* ?[address] [facility] ? [place] [address] ? [phone] Transthoracic Echocardiography Patient: ?Leoncio Rollins MR #: ? [id number] Account: Study Date: 07/22/2019 Gender: ? M Age: ?44 : ?1975 Room: ? [facility] PURCHASING AGENT ?Hodan Carroll PERFORMING ??Jennifer Mckeon ORDERING ?Marcelino Fox REFERRING ?? Keon Brown ATTENDING ?? Marcelino Fox ADMITTING ?? Marcelino Fox Procedure:ECHO 2D COMPLETE ? Order: Accession W/CONTRAST (TTE) ?Number:[id number] Indications: ?Endocarditits (I38). PMH: ??KIM, fever, chronic [...] range. Reviewed and confirmed by Jennifer Mckeon [id number] Procedure Note Jennifer Mckeon MD - 07/22/2019 * [facility]* [address] [place] [id number] Transthoracic Echocardiography Patient: Leoncio Rollins MR #: [id number] Account: Study Date: 07/22/2019 Gender: M Age: 44 : 1975 Room: [facility] PURCHASING AGENT Hodanjelani Carroll PERFORMING Jennifer Mckeon ORDERING Marcelino Fox REFERRING Keon Brown ATTENDING Marcelino Fox ADMITTING Marcelino Fox Procedure:ECHO 2D COMPLETE Order: Accession W/CONTRAST (TTE) Number:[id number] Indications: Endocarditits (I38). PMH: KIM, fever, chronic [...] range. Reviewed and confirmed by Jennifer Mckeon [id number] us Marcelino Fox MD CV ECHO ORDERABLES Final Resu lt [facility] * (ABNORMAL) Hepatitis B Surface Antibody, Quantitati (07/22/2019 11:51 AM EST) HBSAB NUMBER 88.67(H) 0.00 - 7.99 mIU/mL 07/22/2019 2:16 PM EST [facility] Hep B S Ab Reactive( A) Nonreactive 07/22/2019 2:16 PM EST [facility] Serum specimen (specimen) 07/22/2019 11:51 AM EST 07/22/2019 11:56 AM EST [facility] - 07/22/2019 2:18 PM EST Individual is considered immune to HBV infection. The results of the multi-test panel are consistent with a patient who is not infected with the Hepatitis B virus and is immune to Hepatitis B infection via vaccination. Enrike Mccracken MD LAB BLOOD ORDERABLES Final Result Performing Organization Address [facility] de Phone Number [facility] [address] [facility] * Hepatitis B Core Antibody (07/22/2019 11:51 AM EST) Hep B Core Total Ab Nonreactive Nonreactive 07/22/2019 2:15 PM EST [facility] Comment:Health Department no tified in accordance with reportable infectious disease guidelines. Serum specimen (specimen) 07/22/2019 11:51 AM EST 07/22/2019 11:56 AM EST [facility] - 07/22/2019 2:18 PM EST A nonreactive [...] BLOOD ORDERABLES Final Result Performing Organization Address [facility] Co de Phone Number [facility] [address] [facility] * Hepatitis A IgM (07/22/2019 11:51 AM EST) Hep A IgM Nonreactive Nonreactive 07/22/2019 2:17 PM EST [facility] Serum specimen (specimen) 07/22/2019 11:51 AM EST 07/22/2019 11:56 AM EST [facility] - 07/22/2019 2:17 PM EST IgM anti-HAV not detected. Does not exclude the possibility of exposure to or infection with HAV. ??Levels of IgM anti-HAV may be below the cut-off in early infection. Enrike Mccracken MD LAB BLOOD ORDERABLES Final Result Performing Organization Address [facility] Co de Phone Number [address] * Hepatitis C Antibody (07/22/2019 11:51 AM EST) HCV Ab Nonreactive Nonreactive 07/22/2019 2:14 PM EST [facility] Comment:Health Department no tified in accordance with reportable infectious disease guidelines. Serum specimen (specimen) 07/22/2019 11:51 AM EST 07/22/2019 11:56 AM EST [facility] - 07/22/2019 2:14 PM EST Antibodies to HCV not detected; does not exclude the possibility of exposure to HCV. Enrike Mccracken MD LAB BLOOD ORDERABLES Final Result Performing Organization Address [facility] de Phone Number [address] * Hepatitis B surface antigen (07/22/2019 11:51 AM EST) Hep B Surface Ag Nonreactive Nonreactive 07/22/2019 2:18 PM EST [facility] Comment:Health Department no tified in accordance with reportable infectious disease guidelines. Serum specimen (specimen) 07/22/2019 11:51 AM EST 07/22/2019 11:56 AM EST [facility] - 07/22/2019 2:18 PM EST Specimen is considered negative for HBsAg. The results of the multi-test panel are consistent with a patient who is not infected with the Hepatitis B virus and is immune to Hepatitis B infection via vaccination. Enrike Mccracken MD LAB BLOOD ORDERABLES Final Result Performing Organization Address [facility]/ZIP Co de Phone Number [facility] [address] * Cytomegalovirus DNA, Quant, RT PCR (07/22/2019 7:52 AM EST) CMV DNA Qnt 604 IU/mL 07/24/2019 6:53 PM EST [facility] Comment:Test methodology for CMV quantification is an FDA-approved nucleic acid amplification assay. The Lower Limit of Quantitation (LLOQ) is 137 IU/mL; the linear range is 137- 9,100,000 IU/mL. The limit of Detection is (LoD) is 91 IU/mL. Log10 CMV Qn DNA PI 2.78 log 10 IU/mL 07/24/2019 6:53 PM EST [facility] Comment:CMV DNA has been det ected. Plasma specimen (specimen) 07/22/2019 7:52 AM EST 07/22/2019 9:12 AM EST Marcelino Fox MD LAB BLOOD ORDERABLES Final Re sult Performing Organization Address [facility] Co de Phone Number [facility] [address] [facility]. [address] * (ABNORMAL) Tacrolimus level (07/22/2019 6:16 AM EST) Tacrolimus Lvl <2.0(L) 5.0 - 20.0 ng/mL 07/22/2019 10:05 AM EST [facility] Comment: Detection limit: ??2 ng/mL. ??Performed via chemiluminescent microparticle immunoassay on the [employer] Operator i1000. Whole blood specimen (specimen) 07/22/2019 6:16 AM EST 07/22/2019 6:30 AM EST Narrative [facility] - 07/22/2019 10:05 AM EST Should be drawn PRIOR to being given AM tacro Marcelino Fox MD LAB BLOOD ORDERABLES Final Re sult [facility] [address] * Vitamin B12 (07/22/2019 6:16 AM EST) Vitamin B-12 499 180 - 914 pg/mL 07/22/2019 7:30 AM EST [facility] Serum specimen (specimen) 07/22/2019 6:16 AM EST 07/22/2019 6:31 AM EST Marcelino Fox MD LAB BLOOD ORDERABLES Final Re sult Performing Organization Address City/[facility]/ZIP Co de Phone Number [facility] [address] [facility] * (ABNORMAL) Hepatic Function Panel (07/22/2019 6:16 AM EST) Total Bilirubin 0.3 0.0 - 1.5 mg/dL 07/22/2019 7:10 AM EST [facility] Bilirubin, Direct 0.04 0.00 - 0.40 mg/dL 07/22/2019 7:10 AM EST [facility] AST 11(L) 13 - 39 U/L 07/22/2019 7:10 AM EST [facility] ALT 10 7 - 52 U/L 07/22/2019 7:10 AM EST [facility] Alkaline Phosphatase 81 36 - 125 U/L 07/22/2019 7:10 AM EST [facility] Total Protein 5.7(L) 6.4 - 8.9 g/dL 07/22/2019 7:10 AM EST [facility] Albumin 3.0(L) 3.5 - 5.7 g/dL 07/22/2019 7:10 AM EST [facility] Bilirubin, Indirect 0.26 0.00 - 1.10 mg/dL 07/22/2019 7:10 AM EST [facility] Plasma specimen (specimen) 07/22/2019 6:16 AM EST 07/22/2019 6:31 AM EST Marcelino Fox MD LAB BLOOD ORDERABLES Final Re sult [facility] [address] * Magnesium, AM (07/22/2019 6:16 AM EST) Magnesium 1.9 1.5 - 2.5 mg/dL 07/22/2019 7:10 AM EST [facility] Plasma specimen (specimen) 07/22/2019 6:16 AM EST 07/22/2019 6:31 AM EST us Marcelino Fox MD LAB BLOOD ORDERABLES Final Re sult [facility] [address] * (ABNORMAL) Renal Function Panel w/EGFR (07/22/2019 6:16 AM EST) Sodium 134 133 - 146 mmol/L 07/22/2019 7:10 AM [facility] Potassium 4.6 3.5 - 5.3 mmol/L 07/22/2019 7:10 AM [facility] Chloride 99 98 - 110 mmol/L 07/22/2019 7:10 AM [facility] CO2 21 21 - 33 mmol/L 07/22/2019 7:10 AM [facility] Anion Gap 14 3 - 16 mmol/L 07/22/2019 7:10 AM [facility] BUN 67(H) 7 - 25 mg/dL 07/22/2019 7:10 AM [facility] Creatinine 9.07(H) 0.60 - 1.30 mg/dL 07/22/2019 7:10 AM [facility] Glucose 191(H) 70 - 100 mg/dL 07/22/2019 7:10 AM [facility] Calcium 7.3(L) 8.6 - 10.3 mg/dL 07/22/2019 7:10 AM [facility] Phosphorus 5.9(H) 2.1 - 4.7 mg/dL 07/22/2019 7:10 AM [facility] Albumin 3.0(L) 3.5 - 5.7 g/dL 07/22/2019 7:10 AM [facility] Osmolality, Calculated 303 278 - 305 mOsm/kg 07/22/2019 7:10 AM [facility] eGFR AA CKD-EPI 7 See note. 9 7:10 AM EST [facility] Comment: As of 2015 the [...] equation to estimate glomerular filtration rate. ??Jennifer Mechanotherapist Med. 2009:150(9):604-12 eGFR NONAA CKD-EPI 6 See note. 2018 7:10 AM EST [facility] Comment: As of 2015 the [...] equation to estimate glomerular filtration rate. ??Jennifer Mechanotherapist Med. 2009:150(9):604-12 Plasma specimen (specimen) 07/22/2019 6:16 AM EST 07/22/2019 6:31 AM EST us Marcelino Fox MD LAB BLOOD ORDERABLES Final Re sult [facility] [address] [place] [address], [facility] * (ABNORMAL) CBC, AM (07/22/2019 6:16 AM EST) WBC 5.1 3.8 - 10.8 10E3/uL 07/22/2019 6:40 AM EST [facility] RBC 2.93(L) 4.20 - 5.80 10E6/uL 07/22/2019 6:40 AM EST [facility] Hemoglobin 7.9(L) 13.2 - 17.1 g/dL 07/22/2019 6:40 AM EST [facility] Hematocrit 24.3(L) 38.5 - 50.0 % 07/22/2019 6:40 AM [facility] MCV 82.9 80.0 - 100.0 fL 07/22/2019 6:40 AM EST [facility] MCH 27.0 27.0 - 33.0 pg 07/22/2019 6:40 AM EST [facility] MCHC 32.6 32.0 - 36.0 g/dL 07/22/2019 6:40 AM [facility] RDW 14.2 11.0 - 15.0 % 07/22/2019 6:40 AM [facility] Platelets 133(L) 140 - 400 10E3/uL 07/22/2019 6:40 AM [facility] MPV 7.7 7.5 - 11.5 fL 07/22/2019 6:40 AM [facility] Whole blood specimen (specimen) 07/22/2019 6:16 AM EST 07/22/2019 6:31 AM EST Marcelino Fox MD LAB BLOOD ORDERABLES Final Re sult Performing Organization Address City/[facility]/ZIP Co de Phone Number [facility] [address] * (ABNORMAL) POC Glucose Monitoring Device (07/21/2019 7:59 PM EST) POC Glucose Monitoring Device 142(H) 70 - 100 mg/dL 07/21/2019 8:00 PM EST [facility] Blood specimen (specimen) 07/21/2019 7:59 PM EST 07/21/2019 8:00 PM EST Marcelino Fox MD POINT OF CARE TEST ORDERABLES Final Result Performing Organization Address [facility]/ZIP Co de Phone Number [facility] [address] * (ABNORMAL) POC Glucose Monitoring Device (07/21/2019 6:28 PM EST) POC Glucose Monitoring Device 135(H) 70 - 100 mg/dL 07/21/2019 6:29 PM EST [facility] Blood specimen (specimen) 07/21/2019 6:28 PM EST 07/21/2019 6:29 PM EST Marcelino Fox MD POINT OF CARE TEST ORDERABLES Final Result Performing Organization Address [facility] Co de Phone Number [facility] [address] * Folate (07/21/2019 2:19 PM EST) [facility] Folic Acid 9.90 5.90 - 24.80 ng/mL 07/21/2019 3:50 PM EST [facility] Serum specimen (specimen) 07/21/2019 2:19 PM EST 07/21/2019 3:00 PM EST Marcelino Fox MD LAB BLOOD ORDERABLES Final Re sult Performing Organization Address [facility] Co de Phone Number [facility] [address] [facility] * (ABNORMAL) Iron Studies (Iron + TIBC) (07/21/2019 2:19 PM EST) [facility] Iron 24(L) 50 - 212 ug/dL 07/21/2019 3:26 PM EST [facility] LAB % Iron Saturation 11.9(L) 15.0 - 55.0 % 07/21/2019 3:26 PM EST [facility] TIBC 202(L) 261 - 462 ug/dL 07/21/2019 3:26 PM EST [facility] Serum specimen (specimen) 07/21/2019 2:19 PM EST 07/21/2019 3:00 PM EST Marcelino Fox MD LAB BLOOD ORDERABLES Final Re sult Performing Organization Address [facility] Co de Phone Number [facility] [address] [facility] * (ABNORMAL) Ferritin (07/21/2019 2:19 PM EST) Ferritin 433.9(H) 23.9 - 336.2 ng/mL 07/21/2019 3:45 PM EST [facility] Serum specimen (specimen) 07/21/2019 2:19 PM EST 07/21/2019 3:00 PM EST Marcelino Fox MD LAB BLOOD ORDERABLES Final Re sult Performing Organization Address [facility] Co de Phone Number [facility] [address] [facility]. [address] * (ABNORMAL) POC Glucose Monitoring Device (07/21/2019 1:31 PM EST) Pathologist [facility] POC Glucose Monitoring Device 172(H) 70 - 100 mg/dL 07/21/2019 1:32 PM EST [facility] Blood specimen (specimen) 07/21/2019 1:31 PM EST 07/21/2019 1:32 PM EST Marcelino Fox MD POINT OF CARE TEST ORDERABLES Final Result Performing Organization Address [facility] de Phone Number [facility] [address] * (ABNORMAL) Basic Metabolic panel, AM (07/21/2019 10:47 AM EST) Sodium 134 133 - 146 mmol/L 07/21/2019 11:40 AM EST [facility] Potassium 5.2 3.5 - 5.3 mmol/L 07/21/2019 11:40 AM EST [facility] Chloride 100 98 - 110 mmol/L 07/21/2019 11:40 AM EST [facility] CO2 21 21 - 33 mmol/L 07/21/2019 11:40 AM EST [facility] Anion Gap 13 3 - 16 mmol/L 07/21/2019 11:40 AM EST [facility] BUN 63(H) 7 - 25 mg/dL 07/21/2019 11:40 AM EST [facility] Creatinine 8.65(H) 0.60 - 1.30 mg/dL 07/21/2019 11:40 AM EST [facility] Glucose 182(H) 70 - 100 mg/dL 07/21/2019 11:40 AM EST [facility] Calcium 7.6(L) 8.6 - 10.3 mg/dL 07/21/2019 11:40 AM EST [facility] Osmolality, Calculated 301 278 - 305 mOsm/kg 07/21/2019 11:40 AM EST [facility] eGFR AA CKD-EPI 8 See note. 11:40 AM EST [facility] Comment: As of 2015 the [...] equation to estimate glomerular filtration rate. ??Jennifer Mechanotherapist Med. 2009:150(9):604-12 eGFR NONAA CKD-EPI 7 See note. 2018 11:40 AM EST [facility] Comment: As of 2015 the [...] equation to estimate glomerular filtration rate. ??Jennifer Mechanotherapist Med. 2009:150(9):604-12 Plasma specimen (specimen) 07/21/2019 10:47 AM EST 07/21/2019 11:13 AM EST us Stan Larios DO LAB BLOOD ORDERABLES Final R esult [facility] [address] [place] [address], [facility] * (ABNORMAL) CBC (07/21/2019 10:47 AM EST) WBC 5.9 3.8 - 10.8 10E3/uL 07/21/2019 11:19 AM EST [facility] RBC 2.81(L) 4.20 - 5.80 10E6/uL 07/21/2019 11:19 AM EST [facility] Hemoglobin 7.5(L) 13.2 - 17.1 g/dL 07/21/2019 11:19 AM EST [facility] Hematocrit 23.5(L) 38.5 - 50.0 % 07/21/2019 11:19 AM [facility] MCV 83.6 80.0 - 100.0 fL 07/21/2019 11:19 AM EST [facility] MCH 26.6(L) 27.0 - 33.0 pg 07/21/2019 11:19 AM [facility] MCHC 31.8(L) 32.0 - 36.0 g/dL 07/21/2019 11:19 AM EST [facility] RDW 14.2 11.0 - 15.0 % 07/21/2019 11:19 AM [facility] Platelets 131(L) 140 - 400 10E3/uL 07/21/2019 11:19 AM [facility] MPV 7.7 7.5 - 11.5 fL 07/21/2019 11:19 AM [facility] Whole blood specimen (specimen) 07/21/2019 10:47 AM EST 07/21/2019 11:12 AM EST us Stan Larios DO LAB BLOOD ORDERABLES Final R esult Performing Organization Address City/State/[facility] Co de Phone Number [facility] [address] * Vancomycin, random (07/21/2019 10:47 AM EST) Vancomycin Random 20.2 ug/mL 07/21/2019 11:48 AM EST [facility] Comment:Reference range not established for this test. Serum specimen (specimen) 07/21/2019 10:47 AM EST 07/21/2019 11:15 AM EST us Marcelino Fox MD LAB BLOOD ORDERABLES Final Re sult [facility] [address] * (ABNORMAL) POC Glucose Monitoring Device (07/21/2019 10:44 AM EST) POC Glucose Monitoring Device 184(H) 70 - 100 mg/dL 07/21/2019 10:45 AM EST [facility] Blood specimen (specimen) 07/21/2019 10:44 AM EST 07/21/2019 10:45 AM EST Marcelino Fox MD POINT OF CARE TEST ORDERABLES Final Result Performing Organization Address City/[facility]/ZIP Co de Phone Number [facility] [address] * CT Abdomen and Pelvis WO IV [...] Rosenthal MD at 07/21/2019 10:31 AM EST Stan Larios DO IMG CT ORDERABLES Final Resu lt * CT [...] or skull base fracture. Procedure Note Eleanor Mtz DO - 07/21/2019 EXAM: CT HEAD WO [...] Eleanor Mtz at 07/21/2019 9:53 AM EST Zaynab Isaac MD IMG CT ORDERABLES Final Res ult * Prepare RBC, leukoreduced, 2 Units (07/21/2019 6:15 AM EST) Product Code Z9413N27 HCLL Unit Number [id number] HCLL Dispense Status Presumed Transfused_PT HCLL Blood Expiration Date HCLL Coding System [id number] HCLL Product Code L9438L72 HCLL Unit Number [id number] HCLL Dispense Status Presumed Transfused_PT HCLL Blood Expiration Date HCLL Coding System [id number] HCLL Specimen from blood bag from blood product (specimen) Alicia Cervantes DO BLOOD BANK PRODUCT ORDER ASHISH Final Result HCLL * (ABNORMAL) Venous Blood Gas, Line/Syringe (07/21/2019 1:52 AM EST) PH-Line Draw 7.27(L) 7.32 - 7.42 07/21/2019 1:36 AM EST [facility] PCO2-Line Draw 49 41 - 51 mm Hg 07/21/2019 1:36 AM EST [facility] PO2-Line Draw 44(H) 25 - 40 mm Hg 07/21/2019 1:36 AM EST [facility] HCO3-Line Draw 23(L) 24 - 28 mmol/L 07/21/2019 1:36 AM EST [facility] CO2 Content-Line Draw 24(L) 25 - 29 mmol/L 07/21/2019 1:36 AM EST [facility] Base Excess-Line Draw -4.1(L) -2.0 - 3.0 mmol/L 07/21/2019 1:36 AM EST [facility] %HBO2-Line Draw 74.2(H) 40.0 - 70.0 % 07/21/2019 1:36 AM EST [facility] Carboxyhgb-Nemo e Draw 2.3 % 07/21/2019 1:36 AM EST [facility] Comment: CARBOXYHEMOGLOBIN (CO) REFERENCE RANGES: Non-Smokers: ??<2 % ? Smokers: ??<8 % TOXIC: >20 % Methemoglobin- Line Draw 0.7 0.0 - 1.5 % 07/21/2019 1:36 AM EST [facility] Reduced Hemoglobin-Nemo e Draw 22.8(H) 0.0 - 5.0 % 07/21/2019 1:36 AM EST [facility] Venous (qualifier value) 07/21/2019 1:52 AM EST 07/21/2019 1:35 AM EST Zaynab Isaac MD LAB BLOOD ORDERABLES Final Result Performing Organization Address City/State/[facility] Co de Phone Number [facility] [address] * ECG 12 lead (MUSE) (07/21/2019 1:50 AM EST) 07/21/2019 1:50 AM EST Narrative MUSE - 07/21/2019 1:42 PM EST Ventricular Rate: ??73 ??BPM Atrial Rate: ??73 ??BPM P-R Interval: ??174 ??ms QRS Duration: ??106 ??ms QT: ??414 ??ms QTc: ??456 ??ms P [place]: ??34 ??degrees R [place]: ??64 ??degrees T [place]: ??103 ??degrees Diagnosis Line: ??NORMAL SINUS RHYTHM ^ NORMAL ECG ^ COMPARED TO THE ECG OF 21-JUL-2019 01:49, ^ SINUS RHYTHM HAS REPLACED JUNCTIONAL RHYTHM ^ Confirmed by Carlo MCKEON TEHMINA ([id number]) on 07/21/2019 1:42:33 PM us Marcelino Fox MD ECG ORDERABLES Final Result Performing Organization Address [facility] de Phone Number MUSE * ECG 12 lead (MUSE) (07/21/2019 1:49 AM EST) 07/21/2019 1:49 AM EST Narrative MUSE - 07/21/2019 1:42 PM EST Ventricular Rate: ??73 ??BPM Atrial Rate: ??57 ??BPM QRS Duration: ??100 ??ms QT: ??406 ??ms QTc: ??447 ??ms R [place]: ??66 ??degrees T [place]: ??104 ??degrees Diagnosis Line: ??UNDETERMINED RHYTHM ^ EXCESSIVE BASELINE ARTIFACT ^ NONSPECIFIC ST SEGMENT CHANGE ^ ABNORMAL ECG ^ COMPARED TO THE ECG OF 27-JUN-2019 22:23, ^ NONSPECIFIC T WAVE CHANGE NOW EVIDENT IN INFERIOR LEADS ^ Confirmed by Carlo MCKEON TEHMINA ([id number]) on 07/21/2019 1:42:24 PM us Zaynab Isaac MD ECG ORDERABLES Final Resul t Performing Organization Address [facility] de Phone Number MUSE * Transfuse RBC (07/21/2019 1:41 AM EST) us Alicia Cervantes DO NURSING TREATMENT ORDERA BLES - BLOOD ADMIN Final Result Performing Organization Address [facility] de Phone Number EXTERNAL * (ABNORMAL) Renal Function Panel w/EGFR (07/21/2019 1:33 AM EST) Sodium 135 133 - 146 mmol/L 07/21/2019 2:29 AM EST [facility] Potassium 4.9 3.5 - 5.3 mmol/L 07/21/2019 2:29 AM EST [facility] Chloride 101 98 - 110 mmol/L 07/21/2019 2:29 AM EST [facility] CO2 21 21 - 33 mmol/L 07/21/2019 2:29 AM EST [facility] Anion Gap 13 3 - 16 mmol/L 07/21/2019 2:29 AM EST [facility] BUN 61(H) 7 - 25 mg/dL 07/21/2019 2:29 AM EST [facility] Creatinine 8.09(H) 0.60 - 1.30 mg/dL 07/21/2019 2:29 AM [facility] Glucose 190(H) 70 - 100 mg/dL 07/21/2019 2:29 AM EST [facility] Calcium 7.4(L) 8.6 - 10.3 mg/dL 07/21/2019 2:29 AM EST [facility] Phosphorus 5.6(H) 2.1 - 4.7 mg/dL 07/21/2019 2:29 AM [facility] Albumin 3.1(L) 3.5 - 5.7 g/dL 07/21/2019 2:29 AM EST [facility] Osmolality, Calculated 302 278 - 305 mOsm/kg 07/21/2019 2:29 AM [facility] eGFR AA CKD-EPI 8 See note. 9 2:29 AM [facility] Comment: As of 2015 the estimated [...] equation to estimate glomerular filtration rate. ??Jennifer Mechanotherapist Med. 2009:150(9):604-12 eGFR NONAA CKD-EPI 7 See note. 2018 2:29 AM [facility] Comment: As of 2015 the estimated GFR is calculated from serum creatinine using the Chronic Kidney Disease Epidemiology Collaboration (CKD-EPI) equation in patients 18 years and older. ??The reference range is >60 mL/min/1.73m2. ??eGFR values greater than 90 will be reported as >90mL/min/1.73m2. Reference: Neftali Castle Schmid CH, Zhang YL, Castro AF, 3rd, Feldman HI, et. al. A new equation to estimate glomerular filtration rate. ??Jennifer Mechanotherapist Med. 2009:150(9):604-12 Plasma specimen (specimen) 07/21/2019 1:33 AM EST 07/21/2019 1:50 AM EST Zaynab Isaac MD LAB BLOOD ORDERABLES Final Result [facility] [address] [facility]. [address] * Ammonia (07/21/2019 1:33 AM EST) Ammonia 56 27 - 90 ug/dL 07/21/2019 2:29 AM EST [facility] Plasma specimen (specimen) 07/21/2019 1:33 AM EST 07/21/2019 1:50 AM EST Zaynab Isaac MD LAB BLOOD ORDERABLES Final Result Performing Organization Address [facility] Phone Number [facility] [address] [facility] * (ABNORMAL) CBC, AM (07/21/2019 1:33 AM EST) WBC 5.7 3.8 - 10.8 10E3/uL 07/21/2019 2:41 AM EST [facility] RBC 2.68(L) 4.20 - 5.80 10E6/uL 07/21/2019 2:41 AM EST [facility] Hemoglobin 7.3(L) 13.2 - 17.1 g/dL 07/21/2019 2:41 AM EST [facility] Hematocrit 22.6(L) 38.5 - 50.0 % 07/21/2019 2:41 AM EST [facility] MCV 84.1 80.0 - 100.0 fL 07/21/2019 2:41 AM EST [facility] MCH 27.1 27.0 - 33.0 pg 07/21/2019 2:41 AM EST [facility] MCHC 32.3 32.0 - 36.0 g/dL 07/21/2019 2:41 AM EST [facility] RDW 14.3 11.0 - 15.0 % 07/21/2019 2:41 AM EST [facility] Platelets 131(L) 140 - 400 10E3/uL 07/21/2019 2:41 AM EST [facility] MPV 7.7 7.5 - 11.5 fL 07/21/2019 2:41 AM EST [facility] Whole blood specimen (specimen) 07/21/2019 1:33 AM EST 07/21/2019 1:50 AM EST Stan Larios DO LAB BLOOD ORDERABLES Final R esult Performing Organization Address City/[facility]/ZIP Co de Phone Number [facility] [address] * (ABNORMAL) POC Glucose Monitoring Device (07/20/2019 9:21 PM EST) POC Glucose Monitoring Device 151(H) 70 - 100 mg/dL 07/20/2019 9:23 PM EST [facility] Blood specimen (specimen) 07/20/2019 9:21 PM EST 07/20/2019 9:22 PM EST Marcelino Fox MD POINT OF CARE TEST ORDERABLES Final Result Performing Organization Address [facility]/ZIP Co de Phone Number [facility] [address] [facility] * Transfuse RBC (07/20/2019 8:38 PM EST) us Alicia Cervantes DO NURSING TREATMENT ORDERA BLES - BLOOD ADMIN Final Result Performing Organization Address City/[facility]/ZIP Co de Phone Number EXTERNAL * (ABNORMAL) POC Glucose Monitoring Device (07/20/2019 5:03 PM EST) POC Glucose Monitoring Device 135(H) 70 - 100 mg/dL 07/20/2019 5:04 PM EST [facility] Blood specimen (specimen) 07/20/2019 5:03 PM EST 07/20/2019 5:04 PM EST Marcelino Fox MD POINT OF CARE TEST ORDERABLES Final Result Performing Organization Address City/[facility]/ZIP Co de Phone Number [facility] [address] * (ABNORMAL) CMV IgM Antibody (07/20/2019 3:04 PM EST) CMV IgM Positive( A) Negative 07/21/2019 10:49 AM EST [facility] Comment:Result indicates the presence of detectable CMV IgM antibodies. A Positive result is generally indicative of acute infection, reactivation or persistent IgM production. CMV IGM NUM 73.50(H) 0.00 - 29.99 AU/mL 07/21/2019 10:49 AM EST [facility] Serum specimen (specimen) 07/20/2019 3:04 PM EST 07/20/2019 3:18 PM EST [facility] BLOOD ORDERABLES Final R esult Performing Organization Address City/[facility]/ZIP Co de Phone Number [address] * (ABNORMAL) CMV IgG Antibody (07/20/2019 3:04 PM EST) CMV IgG Positive(A ) Negative 07/21/2019 10:38 AM EST [facility] CMV IGG NUM 10.00(H) 0.00 - 0.59 U/mL 07/21/2019 10:38 AM EST [facility] Serum specimen (specimen) 07/20/2019 3:04 PM EST 07/20/2019 3:18 PM EST [facility] BLOOD ORDERABLES Final R esult Performing Organization Address City/[facility]/ZIP Co de Phone Number [facility] [address] [place] [address]. [address] * (ABNORMAL) [place] Virus Ab Panel (07/20/2019 3:04 PM EST) EBV VCA IgG Positive(A) Negative 07/21/2019 10:42 AM EST [facility] EBV IGG NUM 167.00(H) 0.00 - 17.99 U/mL 07/21/2019 10:42 AM EST [facility] EBV VCA IgM Negative Negative 07/21/2019 10:42 AM EST [facility] EBV IGM NUM 10.00 0.00 - 35.99 U/mL 07/21/2019 10:42 AM EST [facility] Serum specimen (specimen) 07/20/2019 3:04 PM EST 07/20/2019 3:18 PM EST Stan Larios DO LAB BLOOD ORDERABLES Final R esult Performing Organization Address [facility] de Phone Number [facility] [address] [facility] * HSV Type 1 & 2 Ab, IgM (07/20/2019 3:04 PM EST) Pathologist [facility] HSV I/II Ab Titer <0.91 0.00 - 0.90 Ratio 07/22/2019 3:14 PM EST [facility] Comment: ? Negative ?<0.91 ? Equivocal 0.91 - 1.09 ? Positive ?>1.09 Serum specimen (specimen) 07/20/2019 3:04 PM EST 07/23/2019 10:07 AM EST Narrative [facility] - 07/23/2019 10:07 AM EST PERFORMED AT: [address] [id number] NEEDLE BAR MOLDER: Octavio Best, PhD ?? PHONE: [phone] Stan Larios DO LAB BLOOD ORDERABLES Final R esult Performing Organization Address [facility] Co de Phone Number [facility] [address] [facility]. [address] * Antibody identification (07/20/2019 2:04 PM EST) Pathologist [facility] Antibody Id. #1 Anti-C 07/20/2019 1:59 PM EST [facility] Antibody Id. #2 Anti-D 07/20/2019 1:59 PM EST [facility] Blood specimen (specimen) 07/20/2019 2:04 PM EST 07/20/2019 2:04 PM EST Alicia Cervantes DO BLOOD BANK TEST ORDERABL ES Final Result Performing Organization Address [facility] Co de Phone Number [facility] [address] [place] [address]. [address] * ELIUD Anti-IgG (07/20/2019 1:57 PM EST) ELIUD IgG Negative 07/20/2019 1:57 PM EST [facility] Blood specimen (specimen) 07/20/2019 1:57 PM EST 07/20/2019 1:57 PM EST Alicia Cervantes DO BLOOD BANK TEST ORDERABL ES Final Result Performing Organization Address [facility] de Phone Number [facility] [address] [place] [address]. [address] * Chloride, urine, random (07/20/2019 1:39 PM EST) Chloride, Ur 22 mmol/L 07/20/2019 4:49 PM EST [facility] Comment:Reference range not established for this test. Urine specimen (specimen) 07/20/2019 1:39 PM EST 07/20/2019 4:03 PM EST Stan Larios DO URINE ORDERABLES Final Resul t Performing Organization Address [facility] de Phone Number [address] * Potassium, urine, random (07/20/2019 1:39 PM EST) Potassium Urine Random 56.0 mmol/L 07/20/2019 4:49 PM EST [facility] Comment:Reference range not established for this test. Urine specimen (specimen) 07/20/2019 1:39 PM EST 07/20/2019 4:03 PM EST Stan Larios DO URINE ORDERABLES Final Resul t Performing Organization Address [facility] Co de Phone Number [facility] [address] * Sodium, urine, random (07/20/2019 1:39 PM EST) Sodium, Ur 21 mmol/L 07/20/2019 4:49 PM EST [facility] Comment:Reference range not established for this test. Urine specimen (specimen) 07/20/2019 1:39 PM EST 07/20/2019 4:03 PM EST Stan Larios DO URINE ORDERABLES Final Resul t Performing Organization Address [facility] Phone Number [facility] [address] [facility] * Protein / Creatinine Ratio, Urine (07/20/2019 1:39 PM EST) Creatinine, Urine 163.80 mg/dL 07/20/2019 4:49 PM EST [facility] Comment:Reference range not established for this test. Total Protein, Ur >1000 mg/dL 07/20/2019 4:49 PM EST [facility] Comment:Reference range not established for this test. Prot/Creat Ratio, Ur See Note ratio 07/20/2019 4:49 PM EST [facility] Urine specimen (specimen) 07/20/2019 1:39 PM EST 07/20/2019 4:03 PM EST Narrative [facility] - 07/20/2019 4:49 PM EST Unable to calculate result either because contributing result(s) are outside of reportable range or are not available. Stan Larios DO URINE ORDERABLES Final Resul t Performing Organization Address [facility] Co de Phone Number [facility] [address] [facility] * Influenza A+B PCR (07/20/2019 1:39 PM EST) Pathologist [facility] Influenza A Negative Negative, Invalid 07/20/2019 4:42 PM EST [facility] Influenza B Negative Negative, Invalid 07/20/2019 4:42 PM EST [facility] Comment: Test methodology for Influenza PCR is a FDA approved DNA amplification Assay. ??If results are negative or invalid and a Respiratory Viral Panel by PCR is desired, call the [facility] within 72 hours of collection and order a RESPPCR (Lab 4023). ??Result may be invalid due to inhibitory substances in the specimen. Nasopharyngeal swab (specimen) NASOPHARYNGEAL STRUCTURE / Unknown 07/20/2019 1:39 PM EST 07/20/2019 4:06 PM EST Stan Larios DO BODY FLUIDS AND STOOLS ORDER ASHISH Final Result Performing Organization Address City/State/[facility] Co de Phone Number [facility] [address] * (ABNORMAL) EBV Acute Infection Antibodies (07/20/2019 12:47 PM EST) Pathologist [facility] EBV Interp. Comment 07/22/2019 12:04 AM EST [facility] Comment: ? EBV Interpretation Chart Interpretation ?? EBV-IgM ??EA(D)-IgG ??VCA-IgG ??EBNA-IgG EBV Seronegative ?- ?- ? - ?- Early Phase ? + ?- ? - ?- Acute Primary ? + ? +or- ? + ?- Infection Convalescence/Past ??- ? +or- ? + ?+ Infection Reactivated ?+or- ? +or- ? + ?+ Infection ? + Antibody Present ?- Antibody Absent Effective August 19, 2019, [id number] EBV Acute Infection ??Antibodies and [id number] EBV, Chronic/Active Infection ??will be made non-orderable. [facility] offers order ??code [id number] EBV Antibody Profile. EBV Ab VCA, IgM <36.0 0.0 - 35.9 U/mL 07/22/2019 3:30 PM EST [facility] Comment: ? Negative ?<36.0 ? Equivocal 36.0 - 43.9 ? Positive ?>43.9 EBV Early Antigen Ab, IgG <9.0 0.0 - 8.9 U/mL 07/22/2019 3:30 PM EST [facility] Comment: ? Negative ?< 9.0 ? Equivocal ??9.0 - 10.9 ? Positive ?>10.9 EBV Ab VCA, IgG 199.0(H) 0.0 - 17.9 U/mL 07/22/2019 3:30 PM EST [facility] Comment: ? Negative ?<18.0 ? Equivocal 18.0 - 21.9 ? Positive ?>21.9 EBV Nuclear Antigen Ab, IgG 180.0(H) 0.0 - 17.9 U/mL 07/22/2019 3:30 PM EST [facility] Comment: ? Negative ?<18.0 ? Equivocal 18.0 - 21.9 ? Positive ?>21.9 Serum specimen (specimen) 07/20/2019 12:47 PM EST 07/23/2019 10:07 AM EST Narrative [facility] - 07/23/2019 10:07 AM EST PERFORMED AT: [address] [id number] NEEDLE BAR MOLDER: Ocatvio Best, PhD ?? PHONE: [phone] us Stan Larios DO LAB BLOOD ORDERABLES Final R esult Performing Organization Address [facility]/State/ZIP Co de Phone Number [facility] [address] [facility] [place] [address], [facility] * (ABNORMAL) POC Glucose Monitoring Device (07/20/2019 12:14 PM EST) POC Glucose Monitoring Device 150(H) 70 - 100 mg/dL 07/20/2019 12:15 PM EST [facility] Blood specimen (specimen) 07/20/2019 12:14 PM EST 07/20/2019 12:15 PM EST us Marcelino Fox MD POINT OF CARE TEST ORDERABLES Final Result Performing Organization Address City/[facility] Co de Phone Number [facility] [address] * (ABNORMAL) CK (07/20/2019 9:52 AM EST) Total CK 370(H) 30 - 223 U/L 07/20/2019 10:30 AM EST [facility] Plasma specimen (specimen) 07/20/2019 9:52 AM EST 07/20/2019 10:09 AM EST us Stan Larios DO LAB BLOOD ORDERABLES Final R esult Performing Organization Address [facility] Co de Phone Number [facility] [address] [facility]. [address] * (ABNORMAL) Fibrinogen (07/20/2019 9:52 AM EST) Fibrinogen 454(H) 218 - 406 mg/dL 07/20/2019 10:29 AM EST [facility] Plasma specimen (specimen) 07/20/2019 9:52 AM EST 07/20/2019 10:09 AM EST us Stan Larios DO LAB BLOOD ORDERABLES Final R esult Performing Organization Address [facility] Co de Phone Number [facility] [address] [facility]. [address] * (ABNORMAL) LDH, Lactate dehydrogenase (07/20/2019 9:52 AM EST) LD 340(H) 110 - 270 U/L 07/20/2019 10:31 AM EST [facility] Plasma specimen (specimen) 07/20/2019 9:52 AM EST 07/20/2019 10:09 AM EST Stan Larios DO LAB BLOOD ORDERABLES Final R esult Performing Organization Address City/[facility] Co de Phone Number [facility] [address] * (ABNORMAL) Haptoglobin (07/20/2019 9:52 AM EST) Haptoglobin 226(H) 44 - 215 mg/dL 07/20/2019 10:37 AM EST [facility] Serum specimen (specimen) 07/20/2019 9:52 AM EST 07/20/2019 10:09 AM EST Stan Larios DO LAB BLOOD ORDERABLES Final R esult Performing Organization Address City/[facility]/ZIP Co de Phone Number [facility] [address] * Antibody Screen (07/20/2019 9:52 AM EST) Antibody Screen Positive 07/20/2019 11:46 AM EST [facility] Blood specimen (specimen) 07/20/2019 9:52 AM EST 07/20/2019 10:27 AM EST Narrative [facility] - 07/20/2019 12:02 PM EST Testing performed by [facility] Transfusion [facility] Alicia Cervantes DO BLOOD BANK TEST ORDERABL ES Final Result Performing Organization Address [facility] Co de Phone Number [facility] [address] * ABO/Rh (07/20/2019 9:52 AM EST) ABO Grouping O 07/20/2019 11:46 AM EST [facility] Rh Type Negative 07/20/2019 11:46 AM EST [facility] Blood specimen (specimen) 07/20/2019 9:52 AM EST 07/20/2019 10:27 AM EST Alicia Cervantes BLOOD BANK TEST ORDERABL ES Final Result Performing Organization Address City/[facility] Co de Phone Number [facility] [address] [address] * (ABNORMAL) POC Glucose Monitoring Device (07/20/2019 8:33 AM EST) POC Glucose Monitoring Device 195(H) 70 - 100 mg/dL 07/20/2019 8:33 AM EST [facility] Blood specimen (specimen) 07/20/2019 8:33 AM EST 07/20/2019 8:33 AM EST Marcelino Fox MD POINT OF CARE TEST ORDERABLES Final Result Performing Organization Address [facility] Co de Phone Number [facility] [address] [facility] * (ABNORMAL) Hepatic Function Panel (07/20/2019 6:28 AM EST) Pathologist [facility] Total Bilirubin 0.3 0.0 - 1.5 mg/dL 07/20/2019 10:57 PM EST [facility] Bilirubin, Direct 0.07 0.00 - 0.40 mg/dL 07/20/2019 10:57 PM EST [facility] AST 15 13 - 39 U/L 07/20/2019 10:57 PM EST [facility] ALT 8 7 - 52 U/L 07/20/2019 10:57 PM EST [facility] Alkaline Phosphatase 87 36 - 125 U/L 07/20/2019 10:57 PM EST [facility] Total Protein 5.9(L) 6.4 - 8.9 g/dL 07/20/2019 10:57 PM [facility] Albumin 3.2(L) 3.5 - 5.7 g/dL 07/20/2019 10:57 PM EST [facility] Bilirubin, Indirect 0.23 0.00 - 1.10 mg/dL 07/20/2019 10:57 PM EST [facility] Plasma specimen (specimen) 07/20/2019 6:28 AM EST 07/20/2019 1:25 PM EST Marcelino Fox MD LAB BLOOD ORDERABLES Final Re sult Performing Organization Address [facility]/ZIP Co de Phone Number [facility] [address] [facility] * (ABNORMAL) Tacrolimus level (07/20/2019 6:28 AM EST) Tacrolimus Lvl 2.2(L) 5.0 - 20.0 ng/mL 07/20/2019 2:01 PM EST [facility] Comment: Detection limit: ??2 ng/mL. ??Performed via chemiluminescent microparticle immunoassay on the [employer] i1000. Whole blood specimen (specimen) 07/20/2019 6:28 AM EST 07/20/2019 6:44 AM EST us Zaynab Isaac MD LAB BLOOD ORDERABLES Final Result [facility] [address] [place] [address], [facility] * (ABNORMAL) CBC (07/20/2019 6:28 AM EST) WBC 5.5 3.8 - 10.8 10E3/uL 07/20/2019 7:01 AM [facility] RBC 2.52(L) 4.20 - 5.80 10E6/uL 07/20/2019 7:01 AM [facility] Hemoglobin 6.7(L) 13.2 - 17.1 g/dL 07/20/2019 7:01 AM [facility] Hematocrit 21.0(L) 38.5 - 50.0 % 07/20/2019 7:01 AM [facility] MCV 83.5 80.0 - 100.0 fL 07/20/2019 7:01 AM [facility] MCH 26.6(L) 27.0 - 33.0 pg 07/20/2019 7:01 AM [facility] MCHC 31.9(L) 32.0 - 36.0 g/dL 07/20/2019 7:01 AM [facility] RDW 14.2 11.0 - 15.0 % 07/20/2019 7:01 AM [facility] Platelets 134(L) 140 - 400 10E3/uL 07/20/2019 7:01 AM [facility] MPV 7.8 7.5 - 11.5 fL 07/20/2019 7:01 AM [facility] Whole blood specimen (specimen) 07/20/2019 6:28 AM EST 07/20/2019 6:44 AM EST us Zaynab Isaac MD LAB BLOOD ORDERABLES Final Result [facility] [address] [place] [address], [facility] * (ABNORMAL) Renal Function Panel w/EGFR (07/20/2019 6:28 AM EST) Sodium 132(L) 133 - 146 mmol/L 07/20/2019 7:11 AM EST [facility] Potassium 4.9 3.5 - 5.3 mmol/L 07/20/2019 7:11 AM EST [facility] Chloride 101 98 - 110 mmol/L 07/20/2019 7:11 AM EST [facility] CO2 19(L) 21 - 33 mmol/L 07/20/2019 7:11 AM [facility] Anion Gap 12 3 - 16 mmol/L 07/20/2019 7:11 AM EST [facility] BUN 57(H) 7 - 25 mg/dL 07/20/2019 7:11 AM [facility] Creatinine 7.70(H) 0.60 - 1.30 mg/dL 07/20/2019 7:11 AM EST [facility] Glucose 220(H) 70 - 100 mg/dL 07/20/2019 7:11 AM EST [facility] Calcium 7.4(L) 8.6 - 10.3 mg/dL 07/20/2019 7:11 AM EST [facility] Phosphorus 4.1 2.1 - 4.7 mg/dL 07/20/2019 7:11 AM [facility] Albumin 3.2(L) 3.5 - 5.7 g/dL 07/20/2019 7:11 AM [facility] Osmolality, Calculated 297 278 - 305 mOsm/kg 07/20/2019 7:11 AM EST [facility] eGFR AA CKD-EPI 9 See note. 9 7:11 AM EST [facility] Comment: As of 2015 the [...] equation to estimate glomerular filtration rate. ??Jennifer Mechanotherapist Med. 2009:150(9):604-12 eGFR NONAA CKD-EPI 8 See note. 2018 7:11 AM EST [facility] Comment: As of 2015 the [...] equation to estimate glomerular filtration rate. ??Jennifer Mechanotherapist Med. 2009:150(9):604-12 Plasma specimen (specimen) 07/20/2019 6:28 AM EST 07/20/2019 6:44 AM EST us Zaynab Isaac MD LAB BLOOD ORDERABLES Final Result Performing Organization Address [facility]/ZIP Co de Phone Number [facility] [address] * Urine culture (07/20/2019 6:06 AM EST) Culture Result <1,000 cfu/mL [facility] Culture Result Mixed Skin/Urogeni poli Alfonso. No Further Workup. [facility] Mid-stream urine specimen (specimen) URINE SPECIMEN / Unknown 07/20/2019 6:06 AM EST 07/20/2019 8:19 AM EST us Zaynab Isaac MD [facility] Final Result Performing Organization Address [facility]/ZIP Co de Phone Number [facility] [address] * (ABNORMAL) Urinalysis w/Reflex to Microscop, No Culture (07/20/2019 6:06 AM EST) Color, UA Yellow Yellow,Straw 07/20/2019 6:57 AM [facility] Clarity, UA Cloudy(A) Clear 07/20/2019 6:57 AM [facility] Specific [place], UA 1.017 1.005 - 1.035 07/20/2019 6:57 AM [facility] pH, UA 6.0 5.0 - 8.0 07/20/2019 6:57 AM [facility] Protein, UA >=500(A) Negative mg/dL 07/20/2019 6:57 AM [facility] Glucose, UA 150(A) Negative mg/dL 07/20/2019 6:57 AM [facility] Ketones, UA Negative Negative mg/dL 07/20/2019 6:57 AM [facility] Bilirubin, UA Negative Negative 07/20/2019 6:57 AM [facility] Blood, UA Small(A) Negative 07/20/2019 6:57 AM [facility] Nitrite, UA Negative Negative 07/20/2019 6:57 AM [facility] Urobilinogen, UA <2.0 0.2 - 1.9 mg/dL 07/20/2019 6:57 AM [facility] Leukocyte Esterase, UA Negative Negative 07/20/2019 6:57 AM [facility] RBC, UA 6(H) 0 - 3 /HPF 07/20/2019 6:57 AM [facility] WBC, UA 1 0 - 5 /HPF 07/20/2019 6:57 AM [facility] Squam Epithel, UA 1 0 - 5 /HPF 07/20/2019 6:57 AM [facility] Bacteria, UA Few(A) None Seen /HPF 07/20/2019 6:57 AM [facility] Mucus, UA Present(A) None Seen /HPF 07/20/2019 6:57 AM [facility] Urine specimen (specimen) 07/20/2019 6:06 AM EST 07/20/2019 6:15 AM EST us Zaynab Isaac MD URINE ORDERABLES Final Resu lt [facility] [address] * Urea nitrogen, random urine (07/20/2019 6:06 AM EST) Urea Nitrogen, Ur 451 Not Estab. mg/dL 07/21/2019 4:15 AM EST [facility] Urine specimen (specimen) 07/20/2019 6:06 AM EST 07/21/2019 6:36 AM EST Narrative [facility] - 07/21/2019 6:36 AM EST PERFORMED AT: [facility] [address] [id number] NEEDLE BAR MOLDER: Octavio Best, PhD ?? PHONE: [phone] us Zaynab Isaac MD URINE ORDERABLES Final Resu lt Performing Organization Address City/[facility]/ZIP Co de Phone Number [facility] [address] [place] [address]. [address] * Sodium, Urine, Random (07/20/2019 6:06 AM EST) Sodium, Ur 34 mmol/L 07/20/2019 6:29 AM EST [facility] Comment:Reference range not established for this test. Urine specimen (specimen) 07/20/2019 6:06 AM EST 07/20/2019 6:15 AM EST us Zaynab Isaac MD URINE ORDERABLES Final Resu lt [facility] [address] [place] [address]. [address] * X-ray Portable Chest (07/20/2019 5:09 [...] Mathew MD at 07/20/2019 6:13 AM EST us Alicia Cervantes DO IMG DIAGNOSTIC IMAGING O RDERABLES Final Result * Blood culture-Peripheral (07/20/2019 1:28 AM EST) Culture Result No Growth After 5 Days [facility] Blood specimen (specimen) BLOOD SPECIMEN / Unknown 07/20/2019 1:28 AM EST 07/20/2019 5:16 AM EST Zaynab Isaac MD MICROBIOLOGY - GENERAL K[place]HA [place] Final Result [facility] [address] [place] [address], [facility] * Lactic Acid (07/20/2019 12:21 AM EST) Lactate 0.7 0.5 - 2.2 mmol/L 07/20/2019 12:50 AM EST [facility] Plasma specimen (specimen) 07/20/2019 12:21 AM EST 07/20/2019 12:32 AM EST Marcelino Fox MD LAB BLOOD ORDERABLES Final Re sult [facility] [address] [facility] * Blood culture-Peripheral (07/19/2019 11:57 PM EST) Culture Result No Growth After 5 Days [facility] Blood specimen (specimen) BLOOD SPECIMEN / Unknown 07/19/2019 11:57 PM EST 07/20/2019 5:16 AM EST Zaynab Isaac MD MICROBIOLOGY - GENERAL ORDE RABLES Final Result Performing Organization Address City/[facility] Co de Phone Number [facility] [address] [facility] * Protime-INR (07/19/2019 11:57 PM EST) Protime 15.0 12.1 - 15.1 seconds 07/20/2019 12:52 AM EST [facility] Comment:Effective 10/11/2018, the PT and PTMIX reference range has changed from 11.8-14.8 sec to 12.1-15.1 sec. INR ranges are not affected. INR 1.1 0.9 - 1.1 07/20/2019 12:52 AM EST [facility] Comment: RECOMMENDED THERAPEUTIC RANGES USING INR : ?Stable oral anticoagulant therapy: ? 2.0 - 3.0 ?Mechanical prosthetic heart valve: ? 2.5 - 3.5 ?Recurrent acute myocardial infarction: ? 2.5 - 3.5 Plasma specimen (specimen) 07/19/2019 11:57 PM EST 07/20/2019 12:31 AM EST Zaynab Isaac MD LAB BLOOD ORDERABLES Final Result Performing Organization Address [facility] Co de Phone Number [facility] [address] * (ABNORMAL) Hepatic Function Panel (07/19/2019 11:57 PM EST) Total Bilirubin 0.3 0.0 - 1.5 mg/dL 07/20/2019 1:02 AM EST [facility] Bilirubin, Direct 0.05 0.00 - 0.40 mg/dL 07/20/2019 1:02 AM EST [facility] AST 12(L) 13 - 39 U/L 07/20/2019 1:02 AM [facility] ALT 6(L) 7 - 52 U/L 07/20/2019 1:02 AM EST [facility] Alkaline Phosphatase 98 36 - 125 U/L 07/20/2019 1:02 AM EST [facility] Total Protein 5.8(L) 6.4 - 8.9 g/dL 07/20/2019 1:02 AM [facility] Albumin 3.3(L) 3.5 - 5.7 g/dL 07/20/2019 1:02 AM EST [facility] Bilirubin, Indirect 0.25 0.00 - 1.10 mg/dL 07/20/2019 1:02 AM EST [facility] Plasma specimen (specimen) 07/19/2019 11:57 PM EST 07/20/2019 12:31 AM EST Zaynab Isaac MD LAB BLOOD ORDERABLES Final Result Performing Organization Address [facility] Co de Phone Number [facility] [address] * Magnesium (07/19/2019 11:57 PM EST) Magnesium 1.7 1.5 - 2.5 mg/dL 07/20/2019 1:02 AM EST [facility] Plasma specimen (specimen) 07/19/2019 11:57 PM EST 07/20/2019 12:31 AM EST us Zaynab Isaac MD LAB BLOOD ORDERABLES Final Result [facility] [address] [place] [address], [facility] * (ABNORMAL) Renal Function Panel w/EGFR (07/19/2019 11:57 PM EST) Sodium 134 133 - 146 mmol/L 07/20/2019 1:02 AM [facility] Potassium 5.4(H) 3.5 - 5.3 mmol/L 07/20/2019 1:02 AM [facility] Chloride 101 98 - 110 mmol/L 07/20/2019 1:02 AM [facility] CO2 19(L) 21 - 33 mmol/L 07/20/2019 1:02 AM [facility] Anion Gap 14 3 - 16 mmol/L 07/20/2019 1:02 AM [facility] BUN 58(H) 7 - 25 mg/dL 07/20/2019 1:02 AM [facility] Creatinine 7.45(H) 0.60 - 1.30 mg/dL 07/20/2019 1:02 AM [facility] Glucose 270(H) 70 - 100 mg/dL 07/20/2019 1:02 AM [facility] Calcium 7.3(L) 8.6 - 10.3 mg/dL 07/20/2019 1:02 AM [facility] Phosphorus 4.9(H) 2.1 - 4.7 mg/dL 07/20/2019 1:02 AM [facility] Albumin 3.3(L) 3.5 - 5.7 g/dL 07/20/2019 1:02 AM [facility] Osmolality, Calculated 304 278 - 305 mOsm/kg 07/20/2019 1:02 AM [facility] eGFR AA CKD-EPI 9 See note. 9 1:02 AM EST [facility] Comment: As of 2015 the [...] equation to estimate glomerular filtration rate. ??Jennifer Mechanotherapist Med. 2009:150(9):604-12 eGFR NONAA CKD-EPI 8 See note. 2018 1:02 AM EST [facility] Comment: As of 2015 the [...] equation to estimate glomerular filtration rate. ??Jennifer Mechanotherapist Med. 2009:150(9):604-12 Plasma specimen (specimen) 07/19/2019 11:57 PM EST 07/20/2019 12:31 AM EST us Zaynab Isaac MD LAB BLOOD ORDERABLES Final Result [facility] [address] [id number], [facility] * Differential (07/19/2019 11:57 PM EST) Neutrophils Relative 70.4 40.0 - 80.0 % 07/20/2019 12:40 AM EST [facility] Lymphocytes Relative 17.2 15.0 - 45.0 % 07/20/2019 12:40 AM EST [facility] Monocytes Relative 10.9 0.0 - 12.0 % 07/20/2019 12:40 AM EST [facility] Eosinophils Relative 1.4 0.0 - 8.0 % 07/20/2019 12:40 AM EST [facility] Basophils Relative 0.1 0.0 - 1.0 % 07/20/2019 12:40 AM EST [facility] nRBC 0 0 - 0 /100 WBC 07/20/2019 12:40 AM EST [facility] Neutrophils Absolute 4,998 1,500 - 7,800 /uL 07/20/2019 12:40 AM [facility] Lymphocytes Absolute 1,221 850 - 3,900 /uL 07/20/2019 12:40 AM EST [facility] Monocytes Absolute 774 200 - 950 /uL 07/20/2019 12:40 AM [facility] Eosinophils Absolute 99 15 - 500 /uL 07/20/2019 12:40 AM [facility] Basophils Absolute 7 0 - 200 /uL 07/20/2019 12:40 AM [facility] Whole blood specimen (specimen) 07/19/2019 11:57 PM EST 07/20/2019 12:31 AM EST us Zaynab Isaac MD LAB BLOOD ORDERABLES Final Result Performing Organization Address City/State/[facility] Co de Phone Number [facility] [address] * (ABNORMAL) CBC (07/19/2019 11:57 PM EST) WBC 7.1 3.8 - 10.8 10E3/uL 07/20/2019 12:40 AM [facility] RBC 2.72(L) 4.20 - 5.80 10E6/uL 07/20/2019 12:40 AM [facility] Hemoglobin 7.4(L) 13.2 - 17.1 g/dL 07/20/2019 12:40 AM [facility] Hematocrit 23.0(L) 38.5 - 50.0 % 07/20/2019 12:40 AM [facility] MCV 84.3 80.0 - 100.0 fL 07/20/2019 12:40 AM [facility] MCH 27.0 27.0 - 33.0 pg 07/20/2019 12:40 AM [facility] MCHC 32.0 32.0 - 36.0 g/dL 07/20/2019 12:40 AM [facility] RDW 14.0 11.0 - 15.0 % 07/20/2019 12:40 AM [facility] Platelets 149 140 - 400 10E3/uL 07/20/2019 12:40 AM EST [facility] MPV 7.7 7.5 - 11.5 fL 07/20/2019 12:40 AM EST [facility] Whole blood specimen (specimen) 07/19/2019 11:57 PM EST 07/20/2019 12:31 AM EST us Zaynab Isaac MD LAB BLOOD ORDERABLES Final Result Performing Organization Address [facility] Co de Phone Number [facility] [address] [facility] * (ABNORMAL) POC Glucose Monitoring Device (07/19/2019 11:45 PM EST) POC Glucose Monitoring Device 272(H) 70 - 100 mg/dL 07/19/2019 11:46 PM EST [facility] Blood specimen (specimen) 07/19/2019 11:45 PM EST 07/19/2019 11:45 PM EST Marcelino Fox MD POINT OF CARE TEST ORDERABLES Final Result Performing Organization Address [facility] Co de Phone Number [facility] [address] [place] [address]. [address] * Occult Blood (07/19/2019 2:35 PM EST) Occult Blood, Stool #1 Negative Negative 07/20/2019 2:44 PM EST [facility] Stool specimen (specimen) 07/19/2019 2:35 PM EST 07/20/2019 2:35 PM EST Marcelino Fox MD BODY FLUIDS AND STOOLS ORDERA BLES Final Result Performing Organization Address [facility] Co de Phone Number [facility] [address] [place] [address]. [address] documented in this encounter Visit Diagnoses Not [...] breakfast, First dose on 07/20/19 at 0800 Given 07/25/2019 1:24 PM EST 81 mg Given 07/24/2019 2:26 PM EST 81 mg Given 07/23/2019 11:46 AM EST 81 mg benzocaine-menthol (CHLORASEPTIC) 6-10 mg lozenge 1 lozenge 1 lozenge, Mucous Membrane, Every 1 hour PRN, sore throat, Starting on 07/21/19 at 1046, Patient can have multiple lozenges [...] Given 07/24/2019 2:25 PM EST 50 mg cefTRIAXone (ROCEPHIN) 2 g in sodium chloride [...] Weekly, First dose on Mon07/20/19 at 0900 Given 07/20/2019 8:33 AM EST 50,000 Units famotidine (PEPCID) tablet 20 mg 20 mg, Oral, Daily, First dose on 07/20/19 at 0900 Given 07/25/2019 1:23 PM EST 20 mg Given 07/24/2019 2:25 PM EST 20 mg Given 07/23/2019 11:46 AM EST 20 mg gabapentin (NEURONTIN) capsule 200 mg 200 mg, Oral, Nightly PRN, Other, pain, Starting on Mon07/23/19 at 1553 insulin lispro (humaLOG) injection 0-4 Units 0-4 [...] PM EST 6 Units Le ft Arm lidocaine (LIDODERM) 5 % 1 patch 1 patch, Transdermal, Every 24 hours, First dose on 07/20/19 at 0700, LEAVE PATCH ON FOR 12 HOURS,THEN REMOVE FOR 12 HOURS. Patch Applied 07/20/2019 6:52 AM EST 1 patch Other lidocaine HCl (XYLOCAINE) 2 % viscous soln [...] Starting on 07/21/19 at 0108, FOR INSOMNIA Given 07/23/2019 9:48 PM EST 3 mg NIFEdipine (PROCARDIA-XL) 24 hr tablet 90 mg 90 mg, Oral, 2 times daily, First dose on 07/20/19 at 0900, DO NOT CRUSH Given 07/25/2019 1:24 PM EST 90 mg Given 07/24/2019 8:37 PM EST 90 mg Given 07/24/2019 2:25 PM EST 90 mg ondansetron (ZOFRAN) injection 4 mg 4 mg, Intravenous, Every 6 hours PRN, Nausea and/or Vomiting, Starting on Mon07/23/19 at 0813 Given 07/24/2019 2:23 PM EST 4 mg Given 07/23/2019 10:54 AM EST 4 mg phenol (SORE THROAT) 1.4 % spray Mucous Membrane, Every 2 hour PRN, sore throat, Starting on 07/22/19 at 1917, Up to 5 sprays onto throat or affected area; keep in place for 15 seconds, then expectorate. Given 07/22/2019 9:38 PM EST 1 mL terazosin (HYTRIN) capsule 10 mg 10 mg, [...] PM EST 50 mg valACYclovir (VALTREX) tablet 500 mg 500 mg, Oral, Daily, First dose (after last modification) on 07/24/19 at 0900 Given 07/25/2019 1:23 PM EST 500 mg Given 07/24/2019 2:29 PM EST 500 mg documented in this encounter Active and Recently Administered Medications Times are shown in EST. Scheduled Medication Order 07/23/2019 07/24/2019 07/25/2019 aluminum & magnesium hydroxide-simethicone (MYLANTA, MAALOX) suspension 30 mL (COMPLETED)(Linked Group 1) 30 mL, Oral, Once, On Tu07/23/19 at 0830, For 1 dose, Therapeutic Interchange [...] (2100), First dose on 07/20/19 at 0000 2148 (Not Given - Provider: Roxi Gurrola RN - Reason: Patient/family refused) 2035 (Given - Provider: Karthik Nelson RN) carvedilol (COREG) tablet 50 mg 50 mg, Oral, 2 times daily with meals, First dose on Mon07/20/19 at 0800 1145 (Given - Provider: Judi [...] ADDaptor product - Mix Thoroughly Before Administration 2145 (New Bag - Provider: Roxi Gurrola RN) 2229 (New Bag - Provider: Karthik Nelson RN) cloNIDine HCl (CATAPRES) tablet 0.1 mg 0.1 mg, Oral, 2 times daily, First dose on Mon07/20/19 at 0000 1156 (Given - Provider: Judi Bender RN)2148 (Given - Provider: Roxi Gurrola RN) 1425 (Given - Provider: Judi Bender RN)203 (Given - Provider: Karthik Nelson RN) 0934 (Given - Provider: Heike Ly RN) cycloSPORINE modified (NEORAL/GENGRAF) capsule 50 mg 50 mg, Oral, 2 times daily, First dose on Mon07/23/19 at 1300, LEVEL 2 HAZARDOUS MEDICATION 1434 (Given - Provider: Judi Bender RN)2148 (Given - Provider: Roxi Gurrola RN) 1430 (Given - Provider: Judi Bender RN)2035 (Given - Provider: Karthik Nelson RN) 0800 (Hold - Provider: Rose Haynes RN - Reason: Patient not available)1323 (Given - Provider: Rose Haynes RN) entecavir (BARACLUDE) tablet 0.5 mg 0.5 [...] FROM LIGHT 1159 (Given - Provider: Heike Ly RN) HYDROmorphone (DILAUDID) injection 0.5 mg (COMPLETED) 0.5 [...] parameters not met - Comment: fsbs 115) 213 (Not Given - Provider: Karthik Nelson RN - Reason: Order parameters not met) insulin lispro (humaLOG) injection 0-5 Units 0-5 Units, Subcutaneous, 3 times daily before meals, First dose on 07/20/19 at 0900, HIGH ALERT MEDICATION 1134 (Hold - Provider: Judi Bender RN - Reason: Order parameters not met)1535 (Hold - Provider: Judi Bender RN - Reason: Order parameters not met)220 (Not Given - Provider: Roxi Gurrola RN - Reason: Order parameters not met - Comment: pt ordered dinner after 1829) 0935 (Not Given - Provider: Heike Ly RN - Reason: Order parameters not met - Comment: NPO)1550 (Hold - Provider: Judi Bender RN - Reason: Order parameters not met)213 (Not Given - Provider: Karthik Nelson RN [...] eat anything prior to being taken to HD)220 (Hold - Provider: Roxi Gurrola RN - Reason: Other - Comment: pt ordered dinner after 1830patient at dinner prior) 0935 (Not Given - Provider: Heike Ly RN - Reason: NPO)1601 (Given - Provider: Judi Bender RN)213 (Not Given - Provider: Karthik Nelson RN [...] Bender RN - Reason: Contraindicated - Comment: Per Wilder Costello MD, ok to hold am dose [...] ONLY 0944 (New Bag - Provider: Heike Ly RN)0956 (New Bag - Provider: Melody Orellana RN) 0935 (New Bag - Provider: Heike Ly RN) lidocaine (LIDODERM) 5 % 1 patch 1 patch, Transdermal, Every 24 hours, First dose on 07/20/19 at 0700, LEAVE PATCH ON FOR 12 [...] RN)2036 (Given - Provider: Karthik Nelson RN) 0800 (Not Given - Provider: Rose Haynes RN - Reason: Patient not available)1324 (Given - Provider: Rose Haynes RN) ondansetron (ZOFRAN) injection 4 mg (COMPLETED) 4 mg, Intravenous, Once, On Mon07/23/19 at 0230, For 1 dose 0237 (Given - Provider: Roxi Gurrola RN) sodium bicarbonate tablet 1,300 mg (CANCELED) 1,300 mg, Oral, 2 times daily, First dose on Mon07/20/19 at 0530 1147 (Given - Provider: Judi Bender RN)2145 (Given - Provider: Roxi Gurrola RN) tacrolimus [...] 2147 (Given - Provider: Roxi Gurrola RN) melatonin 3 mg 3 mg, Oral, Nightly PRN, For insomnia, Starting on Mon07/21/19 at 0108, FOR INSOMNIA 2147 (Given - [...] FROM LIGHT 1118 (Given - Provider: Martin Ly, RN) Linked Groups Order Group 1: aluminum [...] documented as of this encounter Care Teams Co Director Relationship Specialty Start Date End Date Edgar Fournier MD [address] [place] [address] [place] [address] PCP - General 08/18/17 06/23/21 Maile Valles, JANA Txp Post Coordinator Transplant Hepatology 11/07/17 Arnold Ordoñez MD [facility] [place] [address] Consulting Physician Transplant Hepatology 01/05/18 documented as of this encounter
--- OUTSIDE RECORDS SUMMARY | 2024-07-12 12:47 | XMS_ITS | Encounter Summary ---
Author Organization [facility] Address [address] [place] [address] Care Team Providers Care Offal Roller Name Role Phone Edgar Fournier MD Primary Care Provider [phone] Maile Valles RN Unavailable Unavail able Jack Ordoñez MD Unavailable [phone] Source Comments This information has been [...] release of HIV test results or diagnoses. [id number] Health Encounter Details Date Type Department Care Team (Latest Contact Info) Description 07/19/2019 Travel Social History Tobacco Use Types Packs/Day [...] 07/15/2024 9:00 AM EST Hospital Encounter [facility] Interventional Radiology [address] [place] [phone] Herve Carrillo MD [address] [place] [facility] [address] [place] [phone] documented as of this encounter Visit Diagnoses Not on filedocumented in this encounter Additional Health Concerns Assessment Noted Time PHQ-9 Depression Total Score: 0 12/06/19 18 3:00 PM EDT documented as of this encounter Care Teams Offal Roller Relationship Specialty Start Date End Date Edgar Fournier MD [address] [place] [address] [place] [phone] PCP - General 08/18/17 06/23/21 Maile Valles RN Txp Post Coordinator Transplant Hepatology 11/07/17 Jack Ordoñez MD [address] [place] [phone] Consulting Physician Transplant Hepatology 01/05/18 documented as of this encounter
--- OUTSIDE RECORDS SUMMARY | 2024-07-12 12:47 | XMS_ITS | Encounter Summary ---
Author Organization Health Address [facility] [place] [address] Care Team Providers Care Evaluation Specialist Name Role Phone Edgar Fournier MD Primary Care Provider [phone] Maile Valles RN Unavailable Unavail able Jack Ordoñez MD Unavailable [phone] Source Comments This information has been [...] release of HIV test results or diagnoses. [id number] Encounter Details Date Type Department Care Team (Late st Contact Info) Description 07/19/2019 Chart Note [facility] [place] [phone] Anne Whitt MA Lab draw 07/18/19 @0940 Social History Tobacco Use Types Packs/Day Years [...] Progress Notes * Anne Whitt MA - 07/19/2019 1:20 PM EST Lab draw 07/18/19 @0940 ?? Direct bili 0.2 Urine studies ?? Protein to Creatinine urine 0.05 documented in this encounter Plan of Treatment Upcoming Encounters Date Type Department Care Team (Late st Contact Info) Description 07/15/2024 9:00 AM EST Hospital Encounter [facility] Interventional Radiology [address] [place] [phone] Herve Carrillo MD [address] [facility] [address] [place] [address] documented as of this encounter Procedures Procedure Name Priority Date/Time Associated Diagnosis Comments URINE PROTEIN, TOTAL, RANDOM (W/O CREATININE) Routine 07/18/2019 9:40 AM EST HEPATIC FUNCTION PANEL Routine 07/18/2019 9:40 AM EST HEPATIC FUNCTION PANEL Routine 07/18/2019 9:40 AM EST CREATININE, URINE, RANDOM Routine 07/18/2019 9:40 AM EST CBC AND DIFFERENTIAL Routine 07/18/2019 9:40 AM EST RENAL FUNCTION PANEL W/O EGFR Routine 07/18/2019 9:40 AM EST LIPID PANEL Routine 07/18/2019 9:40 AM EST HEPATIC FUNCTION PANEL Routine 07/09/2019 10:37 AM EST CBC AND DIFFERENTIAL Routine 07/09/2019 10:37 AM EST RENAL FUNCTION PANEL W/O EGFR Routine 07/09/2019 10:37 AM EST documented in this encounter Results * Creatinine, urine, random (07/18/2019 9:40 AM EST) Creatinine, Urine 279 Urine specimen (specimen) Result [facility] Provider URINE ORDERABLES Final Re sult * Urine Protein, Tot, Random (w/o Creat) (07/18/2019 9:40 AM EST) Total Protein, Ur 15.3 Urine specimen (specimen) Result [facility] Provider URINE ORDERABLES Final Re sult * (ABNORMAL) Hepatic Function Panel (07/18/2019 9:40 AM EST) Hemoglobin A1C 6.8(A) 4.0 - 6.0 % Plasma specimen (specimen) Result [facility] Provider LAB BLOOD ORDERABLES Yoselin l Result * (ABNORMAL) Renal Function Panel w/o EGFR (07/18/2019 9:40 AM EST) BUN/Creatinine Ratio 11 Glucose 169 mg/dL BUN 20 4 - 21 mg/dL CO2 18 13 - 22 mmol/L Creatinine 1.75(A) 0.6 - 1.3 mg/dL Potassium 4.5 3.4 - 5.3 mmol/L Sodium 141 137 - 147 mmol/L Chloride 106 99 - 108 mmol/L Albumin 4.2 Phosphorus 2.9 2.5 - 4.9 mg/dL Calcium 9.2 8.7 - 10.7 mg/dL EGFR 40 mg/dL Blood specimen (specimen) Result [facility] Provider LAB BLOOD ORDERABLES Yoselin l Result * (ABNORMAL) Lipid Profile (07/18/2019 9:40 AM EST) Pathologist [facility] Cholesterol, Total 171 mg/dL Triglycerides 334(A) 40 - 160 mg/dL HDL 35 VLDL CHOL 67 mg/dL LDL Cholesterol 69 mg/dL Plasma specimen (specimen) Result [facility] Provider LAB BLOOD ORDERABLES Yoselin l Result * (ABNORMAL) CBC and differential (07/18/2019 9:40 AM EST) Pathologist [facility] Hemoglobin 12.8(A) 13.5 - 17.5 g/dL Hematocrit 41 41 - 53 % RDW 15.7(A) 11.5 - 14.5 % Lymphocytes Absolute 1.29 /??L Monocytes Absolute 0.41 /??L Eosinophils Absolute 0.11 /??L Basophils Absolute 0.03 /??L Neutrophils Relative 57.2 46 - 78 % Lymphocytes Relative 29.5 18 - 52 % Monocytes Relative 9.4 3 - 10 % Eosinophils Relative 2.5 0 - 6 % Basophils Relative 0.7 0 - 3 % Neutrophils Absolute 2.5 /??L MCH 26.6 26.0 - 34.0 pg MCHC 31.2 30 - 37 g/dL MCV 85.1 82.0 - 108.0 fL Platelets 134 K/??L RBC 4.82 4.50 - 5.90 10^6/??L WBC 4.37 10^3/mL Blood specimen (specimen) Result [facility] Provider LAB BLOOD ORDERABLES Yoselin l Result * Hepatic Function Panel (07/18/2019 9:40 AM EST) Pathologist [facility] Bilirubin, Indirect 0.1 Alkaline Phosphatase 77 U/L ALT 18 U/L AST 20 U/L Total Bilirubin 0.28 0.1 - 1.4 mg/dL Plasma specimen (specimen) Result [facility] Provider LAB BLOOD ORDERABLES Yoselin l Result * (ABNORMAL) Renal Function Panel w/o EGFR (07/09/2019 10:37 AM EST) BUN/Creatinine Ratio 7 Glucose 144 mg/dL BUN 32(A) 4 - 21 mg/dL CO2 26(A) 13 - 22 mmol/L Creatinine 4.6(A) 0.6 - 1.3 mg/dL Potassium 5.1 3.4 - 5.3 mmol/L Sodium 144 137 - 147 mmol/L Chloride 108 99 - 108 mmol/L Albumin 3.2 Phosphorus 4.6 2.5 - 4.9 mg/dL Calcium 7.7(A) 8.7 - 10.7 mg/dL EGFR 15 mg/dL Blood specimen (specimen) Historical Provider LAB BLOOD ORDERABLES Yoselin l Result * (ABNORMAL) CBC and differential (07/09/2019 10:37 AM EST) [facility] Hemoglobin 9.4(A) 13.5 - 17.5 g/dL Hematocrit 29.5(A) 41 - 53 % RDW 13.9 11.5 - 14.5 % Lymphocytes Absolute 0.78 /??L Monocytes Absolute 0.22 /??L Eosinophils Absolute 0.08 /??L Basophils Absolute 0.01 /??L Neutrophils Relative 62.9 46 - 78 % Lymphocytes Relative 26.6 18 - 52 % Monocytes Relative 7.5 3 - 10 % Eosinophils Relative 2.7 0 - 6 % Basophils Relative 0.3 0 - 3 % Neutrophils Absolute 1.84 /??L MCH 27.1 26.0 - 34.0 pg MCHC 31.9 30 - 37 g/dL MCV 85 82.0 - 108.0 fL Platelets 220 K/??L RBC 3.47(A) 4.50 - 5.90 10^6/??L WBC 2.9 10^3/mL Blood specimen (specimen) Historical Provider LAB BLOOD ORDERABLES Yoselin l Result * Hepatic Function Panel (07/09/2019 10:37 AM EST) [facility] Alkaline Phosphatase 165 U/L ALT 19 U/L AST 13 U/L Total Bilirubin 0.2 0.1 - 1.4 mg/dL Bilirubin, Direct 0.1 0.01 - 0.4 mg/dL Total Protein 6.4 6.4 - 8.2 g/dL Plasma specimen (specimen) us Historical Provider LAB BLOOD ORDERABLES Yoselin l Result documented in this encounter Visit Diagnoses Not on filedocumented in this encounter Additional Health Concerns Assessment Noted Time PHQ-9 Depression Total Score: 0 12/06/19 18 3:00 PM EDT documented as of this encounter Care Teams Evaluation Specialist Relationship Specialty Start Date End Date Edgar Fournier MD [address] [place] [address] [place] [address] PCP - General 08/18/17 06/23/21 Maile Valles, JANA Txp Post Coordinator Transplant Hepatology 11/07/17 Jack Ordoñez MD [facility] [place] [address] Consulting Physician Transplant Hepatology 01/05/18 documented as of this encounter
--- OUTSIDE RECORDS SUMMARY | 2024-07-12 12:47 | XMS_ITS | Encounter Summary ---
Author Organization Health Address [facility] [place] [address] Care Team Providers Care Applied Behavior Science Specialist Name Role Phone Edgar Fournier MD Primary Care Provider [phone] Maile Valles RN Unavailable Unavail able Jack Ordoñez MD Unavailable [phone] Source Comments This information has been [...] release of HIV test results or diagnoses. [id number] Encounter Details Date Type Department Care Team (Late st Contact Info) Description 07/23/2019 Abstract [facility] Gastroenterology at [place] [facility] [address] [facility] [address] [place] [phone] Joan Brady Social History Tobacco Use Types [...] [facility] Interventional Radiology [address] [place] [phone] Herve Carrillo MD [address] [facility] [address] [facility] [place] [phone] documented as of this encounter Procedures Procedure Name Priority Date/Time Associated Diagnosis Comments CBC Routine 07/09/2019 GLUCOSE, RANDOM Routine 07/09/2019 HEPATIC FUNCTION PANEL Routine 07/09/2019 RENAL FUNCTION PANEL W/O EGFR Routine 07/09/2019 documented in this encounter Results * Glucose, random (07/09/2019) Glucose 144 mg/dL Plasma specimen (specimen) Historical Provider LAB BLOOD ORDERABLES Yoselin l Result * Hepatic function panel (07/09/2019) Alkaline Phosphatase 165 U/L ALT 19 U/L AST 13 U/L Total Bilirubin 0.2 0.1 - 1.4 mg/dL Albumin 3.2 Protein, Total 6.4 Blood specimen (specimen) Historical Provider LAB BLOOD ORDERABLES Yoselin l Result * (ABNORMAL) Renal Function Panel w/o EGFR (07/09/2019) BUN 32(A) 4 - 21 mg/dL Creatinine 4.6(A) 0.6 - 1.3 mg/dL Potassium 5.1 3.4 - 5.3 mmol/L Sodium 144 137 - 147 mmol/L Chloride 108 99 - 108 mmol/L Phosphorus 4.6 2.5 - 4.9 mg/dL Calcium 7.7(A) 8.7 - 10.7 mg/dL Blood specimen (specimen) [facility] Provider LAB BLOOD ORDERABLES Yoselin l Result * (ABNORMAL) CBC (07/09/2019) Hemoglobin 9.4(A) 13.5 - 17.5 g/dL Hematocrit 29.5(A) 41 - 53 % MCH 27.1 26.0 - 34.0 pg MCV 85 82.0 - 108.0 fL WBC 2.9 10^3/mL Platelets 220 Whole blood specimen (specimen) [facility] Provider LAB BLOOD ORDERABLES Yoselin l Result documented in this encounter Visit Diagnoses Not on filedocumented in this encounter Additional Health Concerns Assessment Noted Time PHQ-9 Depression Total Score: 0 12/06/19 18 3:00 PM EDT documented as of this encounter Care Teams Applied Behavior Science Specialist Relationship Specialty Start Date End Date Edgar Fournier MD [address] [place] [address] [place] [address] PCP - General 08/18/17 06/23/21 Maile Valles, JANA Txp Post Coordinator Transplant Hepatology 11/07/17 Jack Ordoñ[place] [address] [place] [phone] Consulting Physician Transplant Hepatology 01/05/18 documented as of this encounter
--- OUTSIDE RECORDS SUMMARY | 2024-07-12 12:48 | XMS_ITS | Encounter Summary ---
Author Organization [facility] Address [facility] [place] [address] Care Team Providers Care Delivery Mgr Name Role Phone Edgar Fournier MD Primary Care Provider [phone] Maile Valles RN Unavailable Unavail able Jack Ordoñez MD Unavailable [phone] Source Comments This information has been [...] release of HIV test results or diagnoses. [id number] Reason for Visit * Reason Comments Results Encounter Details Date Type Department Care Team (Late st Contact Info) Description 05/20/2019 Telephone [facility] Liver Transplant at Outpatient [address] [address] Maile Valles, JANA Results Social History Tobacco Use Types Packs/Day Years Used Date Smoking Tobacco: Never Smokeless Tobacco: Never Alcohol Use Standard Drinks/Week Comments No 0 (1 standard drink = 0.6 oz pur e alcohol) Sex and Gender Information Value Date Recorded Sex Assigned at Not on file Legal Sex Male 11:05 AM EDT Gender Identity Not on file Sexual Orientation Not on file documented as of this encounter Miscellaneous Notes * Telephone Encounter - Maile Valles RN - 05/20/2019 11:41 AM EDT Labs from 05/15/19 reviewed. Cr remains elevated at 3.9 - patient is being seen by nephrology and working on weight loss in order to be listed for a kidney transplant. LFTs stable. FK 3.0 Will continue to monitor as per previously determined lab intervals. documented in this encounter Plan of Treatment Upcoming Encounters Date Type Department Care Team (Late st Contact Info) Description 07/15/2024 9:00 AM EST Hospital Encounter [facility] Interventional Radiology [address] [place] [phone] Herve Carrillo MD [address] [facility] [address] [place] [phone] documented as of this encounter Visit Diagnoses Not on filedocumented in this encounter Additional Health Concerns Assessment Noted Time PHQ-9 Depression Total Score: 0 12/06/19 18 3:00 PM EDT documented as of this encounter Care Teams Delivery Mgr Relationship Specialty Start Date End Date Edgar Fournier MD [address] [place] [address] [place] [address] PCP - General 08/18/17 06/23/21 Maile Valles, JANA Txp Post Coordinator Transplant Hepatology 11/07/17 Jack Ordoñez MD [address] [place] [phone] Consulting Physician Transplant Hepatology 01/05/18 documented as of this encounter
--- OUTSIDE RECORDS SUMMARY | 2024-07-12 12:48 | XMS_ITS | Encounter Summary ---
Author Organization Health Address [facility] [place] [address] Care Team Providers Care Air Tucker Name Role Phone Edgar Fournier MD Primary Care Provider [phone] Maile Valles RN Unavailable Unavail able Jack Ordoñez MD Unavailable [phone] Source Comments This information has been [...] release of HIV test results or diagnoses. [id number] Encounter Details Date Type Department Care Team (Late st Contact Info) Description 04/01/2019 Telephone [facility] Liver Transplant at Outpatient [address] [address] Melvin Petty MA Social History Tobacco Use Types Packs/Day [...] encounter Miscellaneous Notes * Telephone Encounter - Melvin Petty MA - 04/01/2019 2:59 PM EDT Called patient on both numbers and either one has voicemail setup, was unable to leave voicemail but will keep trying all this week documented in this encounter Plan of Treatment Upcoming Encounters Date Type Department Care Team (Late st Contact Info) Description 07/15/2024 9:00 AM EST Hospital Encounter [facility] Interventional Radiology [address] [place] [phone] Herve Carrillo MD [address] [facility] 3[address] [place] [phone] documented as of this encounter Visit Diagnoses Not on filedocumented in this encounter Additional Health Concerns Assessment Noted Time PHQ-9 Depression Total Score: 0 12/06/19 18 3:00 PM EDT documented as of this encounter Care Teams Air Tucker Relationship Specialty Start Date End Date Edgar Fournier MD [address] [place] [address] [place] [address] PCP - General 08/18/17 06/23/21 Maile Valles, JANA Txp Post Coordinator Transplant Hepatology 11/07/17 Jack Ordoñez MD [address] [place] [phone] Consulting Physician Transplant Hepatology 01/05/18 documented as of this encounter
--- OUTSIDE RECORDS SUMMARY | 2024-07-12 12:48 | XMS_ITS | Encounter Summary ---
Author Organization [facility] Address [address] [place] [address] Care Team Providers Care Technical Specialist Name Role Phone Edgar Fournier MD Primary Care Provider [phone] Maile Valles RN Unavailable Unavail able Jack Ordoñez MD Unavailable [phone] Source Comments This information has been [...] release of HIV test results or diagnoses. [id number] Health Encounter Details Date Type Department Care Team (Latest Contact Info) Description 06/27/2019 Travel Social History Tobacco Use Types Packs/Day [...] [facility] [address] [place] [phone] Herve Carrillo MD [address] [facility] [address] [place] [phone] documented as of this encounter Visit Diagnoses Not on filedocumented in this encounter Additional Health Concerns Assessment Noted Time PHQ-9 Depression Total Score: 0 12/06/19 18 3:00 PM EDT documented as of this encounter Care Teams Technical Specialist Relationship Specialty Start Date End Date Edgar Fournier MD [address] [place] [address] [place] [phone] PCP - General 08/18/17 06/23/21 Maile Valles RN Txp Post Coordinator Transplant Hepatology 11/07/17 Jack Ordoñez MD [address] [place] [phone] Consulting Physician Transplant Hepatology 01/05/18 documented as of this encounter
--- OUTSIDE RECORDS SUMMARY | 2024-07-12 12:48 | XMS_ITS | Encounter Summary ---
Author Organization Health Address [facility] [place] [address] Care Team Providers Care Item Processor Name Role Phone Edgar Fournier MD Primary Care Provider [phone] Maile Valles RN Unavailable Unavail able Jack Ordoñez MD Unavailable [phone] Source Comments This information has been [...] release of HIV test results or diagnoses. [id number] Encounter Details Date Type Department Care Team (Late st Contact Info) Description 04/01/2019 Telephone [facility] Liver Transplant at Outpatient [address] [address] Melvin Petty MA Social History [...] Encounter - Melvin Petty MA - 04/01/2019 3:56 PM EDT Patient called back and stated he will go through his PCP for his bariatric surgery, stated he don't want to travel to [place] for it. And also stated he will call to reschedule his appointment that he canceled documented in this encounter Plan of Treatment Upcoming Encounters Date Type Department Care Team (Late st Contact Info) Description 07/15/2024 9:00 AM EST Hospital Encounter [facility] Interventional Radiology [address] [place] [phone] Herve Carrillo MD [address] [facility] [address] [place] [phone] documented as of this encounter Visit Diagnoses Not on filedocumented in this encounter Additional Health Concerns Assessment Noted Time PHQ-9 Depression Total Score: 0 12/06/19 18 3:00 PM EDT documented as of this encounter Care Teams Item Processor Relationship Specialty Start Date End Date Edgar Fournier MD [address] [place] [address] [place] [address] PCP - General 08/18/17 06/23/21 Maile Valles, RN Txp Post Coordinator Transplant Hepatology 11/07/17 Jack Ordoñez MD [address] [place] [phone] Consulting Physician Transplant Hepatology 01/05/18 documented as of this encounter
--- OUTSIDE RECORDS SUMMARY | 2024-07-12 12:48 | XMS_ITS | Encounter Summary ---
Author Organization Health Address [facility] [place] [place] [address] Care Team Providers Care Carpenter'S Assistant Name Role Phone Edgar Fournier MD Primary Care Provider [phone] Maile Valles RN Unavailable Unavail able Jack rOdoñez MD Unavailable [phone] Source Comments This information has been [...] release of HIV test results or diagnoses. [id number] Health Encounter Details Date Type Department Care Team (Late st Contact Info) Description 04/12/2019 Chart Note [facility] Kidney Transplant at Outpatient [facility] [place] [phone] Ashish Flood [facility] [address] no secondary Ins to [facility] no return call Social History Tobacco Use Types Packs/Day [...] as of this encounter Progress Notes * Ashish Flood - 04/12/2019 2:28 PM EDT R0n w [facility] [address] no secondary Ins to [facility] no return call Referral is closed documented in this encounter Plan of Treatment Upcoming Encounters Date Type Department Care Team (Late st Contact Info) Description 07/15/2024 9:00 AM EST Hospital Encounter [facility] Interventional Radiology [address] [place] [phone] Herve Carrillo MD [address] [facility] 3[address] [place] [phone] documented as of this encounter Visit Diagnoses Not on filedocumented in this encounter Additional Health Concerns Assessment Noted Time PHQ-9 Depression Total Score: 0 12/06/19 18 3:00 PM EDT documented as of this encounter Care Teams Carpenter'S Assistant Relationship Specialty Start Date End Date Edgar Fournier MD [address] [place] [address] [place] [address] PCP - General 08/18/17 06/23/21 Maile Valles, JANA Txp Post Coordinator Transplant Hepatology 11/07/17 Jack Ordoñez MD [facility]8 [place] [phone] Consulting Physician Transplant Hepatology 01/05/18 documented as of this encounter
--- OUTSIDE RECORDS SUMMARY | 2024-07-12 12:48 | XMS_ITS | Encounter Summary ---
Author Organization [facility] Address [facility] [place] [address] Care Team Providers Care Group Fitness Manager Name Role Phone Edgar Fournier MD Primary Care Provider [phone] Maile Valles RN Unavailable Unavail able Jack Ordoñez MD Unavailable [phone] Source Comments This information has been [...] release of HIV test results or diagnoses. [id number] Reason for Visit * Reason Comments Results Encounter Details Date Type Department Care Team (Late st Contact Info) Description 04/12/[address] [facility] Liver Transplant at Outpatient [address] [address] Maile Valles, JANA Results Social [...] Telephone Encounter - Maile Valles RN - 04/12/2019 10:21 AM EDT Labs from 04/03/19 reviewed. Cr elevated to 3.9 Alk phos slightly elevated. FK not drawn. Txp MA spoke to lab - order was cancelled. Spoke with patient. Saw PCP this week. 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 PCP suggested patient contact [facility] to have us order testosterone injections. Explained that [facility] would not manage testosterone. Patient should discuss with endocrinology. Patient states he does follow with endocrinology for bone density - recommended he reach out. He agreed. Patient is interested in gastric sleeve surgery. He wants to see someone locally who can do the procedure within 2 months. He was told that at , it would take 6 months. Highly discouraged patient to have abdominal surgery anywhere but [facility]. Patient verbalized understanding, but still wishes to talk with local surgeon. Gave patient number to schedule with Dr. Trivedi and TRIMS program here at [facility]. Due to lab cancelling FK, patient has agreed to repeat labs next week. Patient cancelled recent Liver [facility] appointment d/t of grandchild. Will call next week to reschedule. documented in this encounter Plan of Treatment Upcoming Encounters Date Type Department Care Team (Late st Contact Info) Description 07/15/2024 9:00 AM [facility] Hospital Encounter [facility] Interventional Radiology [address] [place] [phone] Herve Carrillo MD [facility] [address] [facility] [place] [address] documented as of this encounter Visit Diagnoses Not on filedocumented in this encounter Additional Health Concerns Assessment Noted Time PHQ-9 Depression Total Score: 0 12/06/19 18 3:00 PM EDT documented as of this encounter Care Teams Group Fitness Manager Relationship Specialty Start Date End Date Edgar Fournier MD [address] [place] [address] PCP - General 08/18/17 06/23/21 Malie Valles, RN Txp Post Coordinator Transplant Hepatology 11/07/17 Jack Ordoñez MD [address] [place] [address] Consulting Physician Transplant Hepatology 01/05/18 documented as of this encounter
--- OUTSIDE RECORDS SUMMARY | 2024-07-12 12:48 | XMS_ITS | Encounter Summary ---
Author Organization Health Address [facility] [place] [address] Care Team Providers Care Orthodontist Vice President Name Role Phone Edgar Fournier MD Primary Care Provider [phone] Maile Valles RN Unavailable Unavail able Jack Ordoñez MD Unavailable [phone] Source Comments This information has been [...] release of HIV test results or diagnoses. [id number] Encounter Details Date Type Department Care Team (Late st Contact Info) Description 03/29/2019 Telephone [facility] Liver Transplant at Outpatient [address] [address] Melvin Petty MA Social History [...] Telephone Encounter - Maile Valles RN - 03/29/2019 12:00 PM EDT Reviewed with Dr. Ordoñez. Since patient is s/p liver transplant, any bariatric surgery should be down by Dr. Trivedi at [facility]. Dominik MA to review with patient. Phone humber to schedule is: [phone]. * Telephone Encounter - Melvin Petty MA - 03/29/2019 9:31 AM EDT Patient stated Dr. Ordoñez refrerred him to bariatric center but ended up in the hospital and missed his appointment so patient wants to know if he can get a refrerral to [facility] for bariatric surgery because its closer to his home and easier for him to get back and forward to his appointment. Phone number to [facility] is [phone]. documented in this encounter Plan of Treatment Upcoming Encounters Date Type Department Care Team (Late st Contact Info) Description 07/15/2024 9:00 AM EST Hospital Encounter [facility] Interventional Radiology [address] [place] [phone] Herve Carrillo MD 4920 [facility] 3[address] [place] [phone] documented as of this encounter Visit Diagnoses Not on filedocumented in this encounter Additional Health Concerns Assessment Noted Time PHQ-9 Depression Total Score: 0 12/06/19 18 3:00 PM EDT documented as of this encounter Care Teams Orthodontist Vice President Relationship Specialty Start Date End Date Edgar Fournier MD [address] [place] [address] [place] [address] PCP - General 08/18/17 06/23/21 Maile Valles, JANA Txp Post Coordinator Transplant Hepatology 11/07/17 Jack Ordoñez MD [facility]8 [place] [address] Consulting Physician Transplant Hepatology 01/05/18 documented as of this encounter
--- OUTSIDE RECORDS SUMMARY | 2024-07-12 12:48 | XMS_ITS | Encounter Summary ---
Author Organization Health Address [facility]0 [place] [address] Care Team Providers Care Fiberglass Boat Finisher Name Role Phone Edgra Fournier MD Primary Care Provider [phone] Maile Valles RN Unavailable Unavail able Jack Ordoñez MD Unavailable [phone] Source Comments This information has been [...] release of HIV test results or diagnoses. [id number] Encounter Details Date Type Department Care Team (Late st Contact Info) Description 02/15/2019 Telephone [facility] Liver Transplant at Outpatient [address] [address] Cayetano Park MA Social History Tobacco [...] Telephone Encounter - Cayetano Park MA - 02/15/2019 1:23 PM EDT Aiden called and wanted to know what his lab results were. I advised that I would send the director information security and have them call. documented in this encounter Plan of Treatment Upcoming Encounters Date Type Department Care Team (Late st Contact Info) Description 07/15/2024 9:00 AM EST Hospital Encounter [facility] Interventional Radiology [address] [place] [phone] Herve Carrillo MD 3130 [facility] 3200 [place] [phone] documented as of this encounter Visit Diagnoses Not on filedocumented in this encounter Additional Health Concerns Assessment Noted Time PHQ-9 Depression Total Score: 0 12/06/19 18 3:00 PM EDT documented as of this encounter Care Teams Fiberglass Boat Finisher Relationship Specialty Start Date End Date Edgar Fournier MD [address] [place] [address] [place] [address] PCP - General 08/18/17 06/23/21 Maile Valles, JANA Txp Post Coordinator Transplant Hepatology 11/07/17 Jack Ordoñez MD [address] [place] [phone] Consulting Physician Transplant Hepatology 01/05/18 documented as of this encounter
--- OUTSIDE RECORDS SUMMARY | 2024-07-12 12:48 | XMS_ITS | Encounter Summary ---
Author Organization Health Address [facility]0 [place] [address] Care Team Providers Care Repair Operator Name Role Phone Edgar Fournier MD Primary Care Provider [phone] Maile Valles RN Unavailable Unavail able Jack Ordoñez MD Unavailable [phone] Source Comments This information has been [...] release of HIV test results or diagnoses. [id number] Encounter Details Date Type Department Care Team (Late st Contact Info) Description 04/12/2019 Chart Note [facility] [phone] Latrice Brice MA Social History Tobacco Use Types Packs/Day [...] Hospital Encounter [facility] Interventional Radiology [address] [place] [phone] Herve Carrillo MD [address] [place] [address] documented as of this encounter Procedures Procedure Name Priority Date/Time Associated Diagnosis Comments URINE PROTEIN, TOTAL, RANDOM (W/O CREATININE) Routine 04/03/2019 11:36 AM EDT URINALYSIS, SCREEN Routine 04/03/2019 11 :36 AM EDT HEPATIC FUNCTION PANEL Routine 04/03/2019 11:36 AM EDT CREATININE, URINE, RANDOM Routine 04/03/2019 11:36 AM EDT CBC AND DIFFERENTIAL Routine 04/03/2019 11:36 AM EDT RENAL FUNCTION PANEL W/O EGFR Routine 04/03/2019 11:36 AM EDT documented in this encounter Results * (ABNORMAL) Renal Function Panel w/o EGFR (04/03/2019 11:36 AM EDT) BUN/Creatinine Ratio 10.8 EXTERNAL Glucose 106 mg/dL EXTERNAL BUN 42(A) 4 - 21 mg/dL EXTERNAL CO2 22 13 - 22 mmol/L EXTERNAL Creatinine 3.9(A) 0.6 - 1.3 mg/dL EXTERNAL Potassium 5.5(A) 3.4 - 5.3 mmol/L EXTERNAL Sodium 143 137 - 147 mmol/L EXTERNAL Chloride 110(A) 99 - 108 mmol/L EXTERNAL Albumin 2.9 EXTERNAL Phosphorus 4.3 2.5 - 4.9 mg/dL EXTERNAL Calcium 7.9(A) 8.7 - 10.7 mg/dL EXTERNAL EGFR 18 mg/dL EXTERNAL Blood specimen (specimen) Result [facility] Provider LAB BLOOD ORDERABLES Yoselin robles Result EXTERNAL * Creatinine, urine, random (04/03/2019 11:36 AM EDT) Creatinine, Urine 126.8 EXTERNAL Urine specimen (specimen) Result [facility] Provider URINE ORDERABLES Final Re sult Performing Organization Address [facility] de Phone Number EXTERNAL * (ABNORMAL) CBC and differential (04/03/2019 11:36 AM EDT) Hemoglobin 9.4(A) 13.5 - 17.5 g/dL EXTERNAL Hematocrit 29(A) 41 - 53 % EXTERNAL RDW 13.4 11.5 - 14.5 % EXTERNAL Lymphocytes Absolute 0.95 /??L EXTERNAL Monocytes Absolute 0.3 /??L EXTERNAL Eosinophils Absolute 0.11 /??L EXTERNAL Basophils Absolute 0 /??L EXTERNAL Neutrophils Relative 58.2 46 - 78 % EXTERNAL Lymphocytes Relative 29.2 18 - 52 % EXTERNAL Monocytes Relative 9.2 3 - 10 % EXTERNAL Eosinophils Relative 3.4 0 - 6 % EXTERNAL Basophils Relative 0 0 - 3 % EXTERNAL Neutrophils Absolute 1.89 /??L EXTERNAL MCH 27.7 26.0 - 34.0 pg EXTERNAL MCHC 32.4 30 - 37 g/dL EXTERNAL MCV 85.5 82.0 - 108.0 fL EXTERNAL Platelets 233 K/??L EXTERNAL RBC 3.39(A) 4.50 - 5.90 10^6/??L EXTERNAL WBC 3.3 10^3/mL EXTERNAL Blood specimen (specimen) Result [facility] Provider LAB BLOOD ORDERABLES Yoselin robles Result Performing Organization Address [facility] Co de Phone Number EXTERNAL * Urine Protein, Tot, Random (w/o Creat) (04/03/2019 11:36 AM EDT) Total Protein, Ur 936.1 EXTERNAL Urine specimen (specimen) Historical Provider URINE ORDERABLES Final Re sult Performing Organization Address [facility] Co de Phone Number EXTERNAL * Urinalysis, Screen (04/03/2019 11:36 AM EDT) Prot/Creat Ratio, Ur 7 EXTERNAL Urine specimen (specimen) Historical Provider URINE ORDERABLES Final Re sult Performing Organization Address [facility] Co de Phone Number EXTERNAL * (ABNORMAL) Hepatic Function Panel (04/03/2019 11:36 AM EDT) Alkaline Phosphatase 156 U/L EXTERNAL ALT 13 U/L EXTERNAL AST 14 U/L EXTERNAL Total Bilirubin 0.2 0.1 - 1.4 mg/dL EXTERNAL Bilirubin, Direct 0(A) 0.01 - 0.4 mg/dL EXTERNAL Total Protein 6.1(A) 6.4 - 8.2 g/dL EXTERNAL Plasma specimen (specimen) Result [facility] Provider LAB BLOOD ORDERABLES Yoselin l Result Performing Organization Address [facility] de Phone Number EXTERNAL documented in this encounter Visit Diagnoses Not on filedocumented in this encounter Additional Health Concerns Assessment Noted Time PHQ-9 Depression Total Score: 0 12/06/19 18 3:00 PM EDT documented as of this encounter Care Teams Repair Operator Relationship Specialty Start Date End Date Edgar Fournier MD [address] [place] [address] [place] [address] PCP - General 08/18/17 06/23/21 Maile Valles, JANA Txp Post Coordinator Transplant Hepatology 11/07/17 Jack Ordoñez MD [address] [place] [phone] Consulting Physician Transplant Hepatology 01/05/18 documented as of this encounter
--- OUTSIDE RECORDS SUMMARY | 2024-07-12 12:48 | XMS_ITS | Encounter Summary ---
Author Organization Health Address [facility] [place] [address] Care Team Providers Care Out Patient Therapist Name Role Phone Edgar Fournier MD Primary Care Provider [phone] Maile Valles RN Unavailable Unavail able Jack Ordoñez MD Unavailable [phone] Source Comments This information has been [...] release of HIV test results or diagnoses. [id number] Encounter Details Date Type Department Care Team (Late st Contact Info) Description 05/17/2019 Chart Note [facility] [phone] Anne Whitt MA Lab results Social History Tobacco Use Types Packs/Day Years [...] Progress Notes * Anne Whitt MA - 05/17/2019 1:08 PM EDT Lab results Erythropoietin 30.6 range 2.6-18.5 documented in this encounter Plan of Treatment Upcoming Encounters Date Type Department Care Team (Late st Contact Info) Description 07/15/2024 9:00 AM EST Hospital Encounter [facility] Interventional Radiology [address] [place] [phone] Herve Carrillo MD 3130 [facility] [address] Surgery [place] [phone] documented as of this encounter Visit Diagnoses Not on filedocumented in this encounter Additional Health Concerns Assessment Noted Time PHQ-9 Depression Total Score: 0 12/06/19 18 3:00 PM EDT documented as of this encounter Care Teams Out Patient Therapist Relationship Specialty Start Date End Date Edgar Fournier MD [address] [place] [address] [place] [address] PCP - General 08/18/17 06/23/21 Maile Valles, JANA Txp Post Coordinator Transplant Hepatology 11/07/17 Jack Ordoñez MD [address] [place] [phone] Consulting Physician Transplant Hepatology 01/05/18 documented as of this encounter
--- OUTSIDE RECORDS SUMMARY | 2024-07-12 12:48 | XMS_ITS | Encounter Summary ---
Author Organization Health Address [facility] [place] [address] Care Team Providers Care Sheetmetal Worker Name Role Phone Edgar Fournier MD Primary Care Provider [phone] Maile Valles RN Unavailable Unavail able Jack Ordoñez MD Unavailable [phone] Source Comments This information has been [...] release of HIV test results or diagnoses. [id number] Health Encounter Details Date Type Department Care Team (Late st Contact Info) Description 05/20/2019 Chart Note [facility] [phone] Lynnette Muhammad MA Folate (folic acid)= 7.2 Social History Tobacco Use Types Packs/Day Years [...] as of this encounter Progress Notes * Lynnette Muhammad MA - 05/20/2019 8:37 AM EDT Folate (folic acid)= 7.2 Erythropoietin= 30.6 documented in this encounter Plan of Treatment Upcoming Encounters Date Type Department Care Team (Late st Contact Info) Description 07/15/2024 9:00 AM EST Hospital Encounter [facility] Interventional Radiology [address] [place] [address] Herve Carrillo MD [address] Surgery [place] [phone] documented as of this encounter Procedures Procedure Name Priority Date/Time Associated Diagnosis Comments URINE PROTEIN, TOTAL, RANDOM (W/O CREATININE) Routine 05/15/2019 7:36 AM EDT URINALYSIS, SCREEN Routine 05/15/2019 7: 36 AM EDT HEPATIC FUNCTION PANEL Routine 05/15/2019 7:36 AM EDT TACROLIMUS LEVEL Routine 05/15/2019 7:36 AM EDT IRON AND TIBC Routine 05/15/2019 7:36 AM EDT CREATININE, URINE, RANDOM Routine 05/15/2019 7:36 AM EDT CBC AND DIFFERENTIAL Routine 05/15/2019 7:36 AM EDT VITAMIN B12 Routine 05/15/2019 7:36 AM EDT RENAL FUNCTION PANEL W/O EGFR Routine 05/15/2019 7:36 AM EDT documented in this encounter Results * Vitamin B12 (05/15/2019 7:36 AM EDT) Vitamin B-12 525 Serum specimen (specimen) Result [facility] MD LAB BLOOD ORDERABLES Yoselin l Result * (ABNORMAL) Renal Function Panel w/o EGFR (05/15/2019 7:36 AM EDT) BUN/Creatinine Ratio 9.7 Glucose 108 mg/dL BUN 38(A) 4 - 21 mg/dL CO2 22 13 - 22 mmol/L Creatinine 3.9(A) 0.6 - 1.3 mg/dL Potassium 5.7(A) 3.4 - 5.3 mmol/L Sodium 145 137 - 147 mmol/L Chloride 111(A) 99 - 108 mmol/L Albumin 3.0 Phosphorus 4.8 2.5 - 4.9 mg/dL Calcium 8.3(A) 8.7 - 10.7 mg/dL EGFR 18 mg/dL Blood specimen (specimen) Result [facility] MD LAB BLOOD ORDERABLES Yoselin l Result * (ABNORMAL) Tacrolimus level (05/15/2019 7:36 AM EDT) Tacrolimus Lvl 3.0(A) 6 - 15 ng/mL Whole blood specimen (specimen) Result [facility] MD LAB BLOOD ORDERABLES Yoselin l Result * Iron and TIBC (05/15/2019 7:36 AM EDT) Iron 51 TIBC 266 % Iron Saturation 19 Ferritin 225 Blood specimen (specimen) Result [facility] MD LAB BLOOD ORDERABLES Yoselin l Result * Creatinine, urine, random (05/15/2019 7:36 AM EDT) Creatinine, Urine 132.4 Urine specimen (specimen) Result [facility] Provider URINE ORDERABLES Final Re sult * (ABNORMAL) CBC and differential (05/15/2019 7:36 AM EDT) Hemoglobin 9.1(A) 13.5 - 17.5 g/dL Hematocrit 28.8(A) 41 - 53 % RDW 14 11.5 - 14.5 % Lymphocytes Absolute 0.93 /??L Monocytes Absolute 0.36 /??L Eosinophils Absolute 0.14 /??L Basophils Absolute 0.02 /??L Neutrophils Relative 66.7 46 - 78 % Lymphocytes Relative 21.3 18 - 52 % Monocytes Relative 8.3 3 - 10 % Eosinophils Relative 3.2 0 - 6 % Basophils Relative 0.5 0 - 3 % Neutrophils Absolute 2.91 /??L MCH 27.1 26.0 - 34.0 pg MCHC 31.6 30 - 37 g/dL MCV 85.7 82.0 - 108.0 fL Platelets 241 K/??L RBC 3.36(A) 4.50 - 5.90 10^6/??L WBC 4.4 10^3/mL Blood specimen (specimen) Result [facility] Provider LAB BLOOD ORDERABLES Yoselin l Result * Urine Protein, Tot, Random (w/o Creat) (05/15/2019 7:36 AM EDT) Total Protein, Ur 873 Urine specimen (specimen) Result [facility] Provider URINE ORDERABLES Final Re sult * Urinalysis, Screen (05/15/2019 7:36 AM EDT) Prot/Creat Ratio, Ur 7 Urine specimen (specimen) Result [facility] Provider URINE ORDERABLES Final Re sult * (ABNORMAL) Hepatic Function Panel (05/15/2019 7:36 AM EDT) Alkaline Phosphatase 152 U/L ALT 15 U/L AST 15 U/L Hemoglobin A1C 7.2(A) 4.0 - 6.0 % Total Bilirubin 0.2 0.1 - 1.4 mg/dL Bilirubin, Direct 0(A) 0.01 - 0.4 mg/dL Total Protein 6.4 6.4 - 8.2 g/dL Plasma specimen (specimen) us Historical Provider LAB BLOOD ORDERABLES Yoselin l Result documented in this encounter Visit Diagnoses Not on filedocumented in this encounter Additional Health Concerns Assessment Noted Time PHQ-9 Depression Total Score: 0 12/06/19 18 3:00 PM EDT documented as of this encounter Care Teams Sheetmetal Worker Relationship Specialty Start Date End Date Edgar Fournier MD [address] [place] [address] [place] [address] PCP - General 08/18/17 06/23/21 Maile Valles RN Txp Post Coordinator Transplant Hepatology 11/07/17 Jack Ordoñez MD [facility] [place] [address] Consulting Physician Transplant Hepatology 01/05/18 documented as of this encounter
--- OUTSIDE RECORDS SUMMARY | 2024-07-12 12:48 | XMS_ITS | Encounter Summary ---
Author Organization Health Address [facility] [place] [address] Care Team Providers Care Digital Music Instructor Name Role Phone Edgar Fournier MD Primary Care Provider [phone] Maile Valles RN Unavailable Unavail able Jack Ordoñez MD Unavailable [phone] Source Comments This information has been [...] release of HIV test results or diagnoses. [id number] Encounter Details Date Type Department Care Team (Late st Contact Info) Description 04/18/2019 Chart Note [facility] [phone] Latrice Brice MA Social History Tobacco Use [...] Encounter [facility] Interventional Radiology [address] [place] [address] Herve Carrillo MD [address] [facility] [address] [place] [address] documented as of this encounter Procedures Procedure Name Priority Date/Time Associated Diagnosis Comments TACROLIMUS LEVEL Routine 04/03/2019 11:3 6 AM EDT documented in this encounter Results * (ABNORMAL) Tacrolimus level (04/03/2019 11:36 AM EDT) Tacrolimus by Immunoassay -- Tacrolimus Lvl 1.5(A) 6 - 15 ng/mL Whole blood specimen (specimen) us Historical Provider LAB BLOOD ORDERABLES Yoselin l Result documented in this encounter Visit Diagnoses Not on filedocumented in this encounter Additional Health Concerns Assessment Noted Time PHQ-9 Depression Total Score: 0 12/06/19 18 3:00 PM EDT documented as of this encounter Care Teams Digital Music Instructor Relationship Specialty Start Date End Date Edgar Fournier MD [address] [place] [address] [place] [address] PCP - General 08/18/17 06/23/21 Maile Valles, JANA Txp Post Coordinator Transplant Hepatology 11/07/17 Jack Ordoñez MD [address] [place] [phone] Consulting Physician Transplant Hepatology 01/05/18 documented as of this encounter
--- OUTSIDE RECORDS SUMMARY | 2024-07-12 12:48 | XMS_ITS | Encounter Summary ---
Author Organization [facility] Address [address] [place] [address] Care Team Providers Care Credit Product Analyst Name Role Phone Edgar Fournier MD Primary Care Provider [phone] Maile Valles RN Unavailable Unavail able Jack Ordoñez MD Unavailable [phone] Source Comments This information has been [...] release of HIV test results or diagnoses. [id number] Reason for Visit * Reason Comments New Patient Visit/ Consultation Acute Renal Failure Chronic Kidney Disease Nephrotic Syndrome * Physician/ANUSHA (Routine) - Closed Specialty Diagnoses / Procedures Referred By Contac t Referred To Contact [facility] Nephrology Diagnoses Acute renal failure superimposed on stage 3 chronic kidney disease, unspecified acute renal failure type ([facility]) Niurka Valles MD [address] [place] [address] Phone: tel: fax: Referral ID Status Reason Start Date Expiration Date Visits Re quested Visits Authorized [id number] Closed 01/17/2019 07/16/2019 1 1 Encounter Details Date Type Department Care Team (Late st Contact Info) Description 02/28/2019 1:00 PM EDT Office Visit [facility] Renal Hypertension Clinic at [address] [place] [phone] Edgar Fournier MD [address] [place] [address] Aris Moctezuma MD [address] [place], [place] [id number] CARMEN (acute kidney injury) ([facility]) (Primary Dx); CRD (chronic renal disease), stage IV ([facility]); Nephrotic syndrome Social History Tobacco Use Types Packs/Day Years [...] Sign Reading Time Taken Comments Blood Pressure 141/75 02/28/2019 1:04 PM EDT Pulse 77 02/28/2019 1:04 PM EDT Temperature 36.8 ??C (98.3 ??F) 02/28/2019 1:04 PM ED T Respiratory Rate - - Oxygen Saturation 100% 02/28/2019 1:04 PM EDT Inhaled Oxygen Concentration 100% 02/28/2019 1 :04 PM EDT Weight 127.9 kg (282 lb) 02/28/2019 1:04 PM EDT Height 167.6 cm (5' 6 ) 02/28/2019 1:04 PM EDT Body Mass Index 45.52 02/28/2019 1:04 PM EDT documented in this encounter Patient Instructions * Patient Instructions* Aris Moctezuma MD - 02/28/2019 1:00 PM EDT It was a pleasure seeing you today! Make an appointment to see me in 2 months New medications: None Labs: 1. Please get the labs done today that are ordered. 2. We will refer you to see our coordinators for dialysis education. 3. Follow up with the nephrology transplant clinic as recommended. 4. A referral will be provided for a weight loss program. documented in this encounter Progress Notes * Ramez Mahajan - 02/28/2019 1:00 PM EDTAddended by: RAMEZ MAHAJAN on: 03/08/2019 11:23 PM Modules accepted: Level of Service * Aris Moctezuma MD - 02/28/2019 1:00 PM EDT Nephrology Clinic Note Subjective: HPI/CC: CARMEN on CKD III Aiden Stauffer is a 44 y.o. 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 He was admitted to [facility] from 01/12/2019-01/17/2019 for volume overload and CARMEN. Work up at that time was positive for 13g/day urine protein on a 24 hour collection, negative ANCA, negative serologies for SLE, RA. Only testing that was positive was a positive speckled pattern TERESA. A kidney biopsy was recommended, but the he refused to get it because he felt the risks outweighed the benefits. His baseline Scr is approximately 1.9-2.0, but his current creatinine appears to have reached a steady level of 3.3. Interval Hx: He reports feeling well since discharge. He has a good response to PO torsemide. He reports BP at home has been better controlled since the addition of clonidine to his blood pressure medications. BPat home runs in the 130s/80s range. BP in the office today was unusually elevated as per the patient. Patient Active Problem List Diagnosis ??? GERD [...] 3, GFR 30-59 ml/min (CMS Dx) ??? Cksej-vk-bxryqhk kidney injury (CMS Dx) To do this visit: 1. Will repeat renal panel testing 2. Will repeat SPEP testing 3. Refer for an intensive weight loss program 4. Referral for dialysis education Objective: Wt Readings from Last 3 Encounters: 02/28/19 (!) 282 lb (127.9 kg) 02/12/19 (!) 282 lb (127.9 kg) 01/17/19 (!) 286 lb 14.4 oz (130.1 kg) BP Readings from Last 5 Encounters: 02/28/19 141/75 02/12/19 143/83 01/17/19 (!) 155/105 12/13/18 155/84 09/13/18 (!) 162/94 BP 141/75 (BP Location: Left arm, Patient Position: Sitting, BP Cuff Size: Large) Pulse 77 Temp98.3 ??F (36.8 ??C) (Oral) Ht 5' 6 (1.676 m) Wt (!) 282 lb (127.9 kg) SpO2 100% BMI 45.52 kg/m?? General appearance: AOx3 in NAD Head: Normocephalic, without obvious abnormality, atraumatic Mouth: no oral ulcers or thrush, normal dentition Eyes: EOM intact, no icterus Neck: trachea midline and flat neck veins Lungs: CTAB and no respiratory distress Heart: regular rate and rhythm,no murmurs Abdomen: soft, non-tender non-distended. Extremities: 1+ pitting leg edema up to knees. Warm dry Skin: No rashes/lesions noted Psych: good eye contact, normal affect Screening Laboratory: Lab Results Component Value Date HCVAB Nonreactive 10/08/2017 HGB 10.9 (L) 02/12/2019 HGBA1C 7.4 (H) 12/13/2018 LDL See Note 12/13/2018 AEAD46K 15.8 (L) 01/14/2019 TSH 2.02 12/20/2017 The 10-year ASCVD risk score (Molineclare WAN Jr., et al., 2013) is: 16.6% Values used to calculate the score: Age: 44 years Sex: Male Is Non- : No Diabetic: Yes Tobacco smoker: No Systolic Blood Pressure: 141 mmHg Is BP treated: Yes HDL Cholesterol: 28 mg/dL Total Cholesterol: 262 mg/dL Radiology: No results found. Assessment & Plan: No problem-specific Assessment & Plan notes found for this encounter. CKD Stage IV A3: Likely secondary to diabetes, hypertension and CNI use. Baseline cr around 1.9-2.0. Last labs 02/12/2019 show stable renal function but at a level higher than his baseline Proteinuria: nephrotic range. UPCR 7.95 Renal US showed normal kidney ultrasound. No hydronephrosis - repeat labs - avoid NSAIDs, discussed low salt diet. - referral to the outpatient REACH program through [facility]. BMD: Vit D replacement 50,000 units weekly. - Correct Calcium: 8.6. Phos 4.6. - Vit D 15.8; on supplementation. - PTH 164. Acid/Base: CO2 21; will follow-up labs today. If CO2 falls below 20, will add oral sodium bicarbonate Anemia: Goal Hgb 10-12. Tsat% 22.3 Ferritin: 56.3 HTN: Goal <130/80. BP at goal. Current regimen: Nifedipine ER 90mg BID, clonidine 0.1mg BID, carvedilol 50mg BID, torsemide 20mg daily Plan: 1. Will repeat renal panel testing; unable to add ACEi/ARB for proteinuriua due to borderline hyperkalemia 2. Will repeat SPEP testing since albumin level has now normalized/ 3. Refer for an intensive weight loss REACH program 4. Referral for dialysis education 5. Maintain follow up with renal transplant clinic 6. Follow-up 2 months 7. Strict risk factor modification; counseled about diabetes and blood pressure control ARIS MOCTEZUMA MD 02/28/2019 Pre-visit planning performed. Discussed self management and treatment goals with patient. Barriers to meeting these goals were discussed. Information regarding the usage and side effects of any new medication were provided. Cosigned by Ramez Mahajan at 03/08/2019 11:22 PM EDT Associated attestation - Jarred, Ramez - 03/08/2019 11:22 PM EDT I saw and examined the patient on 02/28/2019 in the renal clinic, and discussed the case with the Fellow and agree with the findings and plan as documented in the Fellow???s note. Medicines and Data reviewed Interim notes in chart reviewed. I agree in full with the assessment and plan as outlined in the fellows note. My additional comments are 44 y/o white male with h/o OLTx for cirrhosis in 09/2018 is seen in renal clinic as post CARMEN follow up. Also has DM2, HTN, severe abdominal obesity and nephrotic range proteinuria ~13 gm. He was evaluated in hospital for proteinuria and CARMEN and considered biopsy however, patient decided not to proceed with biopsy due to high risk of bleeding outweighs the benefits in patient's opinion. Most of theGN work up was negative; however there was some concern of abnormal M spike in SPEP and need to be repeated. He was discharged on torsemide with improvement in swelling however creatinine has risen up to 3.3 now. His BP is acceptable today; weight 282 lbs Plan: CKD- 4: nephrotic range proteinuria; likely related diabetic disease or FSGS however, has abnormal faint M band on SPEP seen too small to call it positive. Patient likely progressing to ESRD. Withoutpathological diagnosis on biopsy, would not recommend immunosuppresive treatment for kidney and he is already on such treatment for OLTx - would start with dialysis education in REACH program. - also recommend to lose weight and follow [facility] transplant nephrology to see what his weight loss goals would be to qualify for kidney transplant. - repeat SPEP and reflex panel. Also getting routine CKD labs - renal panel - continue torsemide without change at 20 mg daily Return in 2 months JWSALVADOR MAHAJAN documented in this encounter Plan of Treatment Upcoming Encounters Date Type Department Care Team (Late st Contact Info) Description 07/15/2024 9:00 AM EST Hospital Encounter [facility] Interventional Radiology [address] [place] [phone] Herve Carrillo MD [address] [place] [phone] documented as of this encounter Results * (ABNORMAL) Serum Prot Electrophoresis w/Free Lt Chains, Reflex to IT (02/28/2019 3:00 PM EDT) IgG 719.0(L) 751.0 - 1,560.0 mg/dL 03/07/2019 3:08 PM EDT [facility] IgM 78.6 46.0 - 304.0 mg/dL 03/07/2019 3:08 PM EDT [facility] Albumin, Protein Electrophoresis 3.6(L) 3.70 - 4.90 g/dL 03/07/2019 3:08 PM EDT [facility] IgA 273.0 82.0 - 453.0 mg/dL 03/07/2019 3:08 PM EDT [facility] Alpha 1 0.3 0.20 - 0.40 g/dL 03/07/2019 3:08 PM EDT [facility] [place] 54.3(H) 3.3 - 19.4 mg/L 03/07/2019 3:08 PM EDT [facility] Alpha 2 0.8 0.50 - 1.00 g/dL 03/07/2019 3:08 PM EDT [facility] [place] 54.2(H) 5.7 - 26.3 mg/L 03/07/2019 3:08 PM EDT [facility] Beta 0.7 0.60 - 1.00 g/dL 03/07/2019 3:08 PM EDT [facility] Gamma Globulin 0.7 0.50 - 1.50 g/dL 03/07/2019 3:08 PM EDT [facility] [place]/Lambda Ratio 1.00 0.26 - 1.65 ratio 03/07/2019 3:08 PM EDT [facility] Total Protein (PE) 6.0(L) 6.4 - 8.9 g/dL 03/01/2019 7:30 AM EDT [facility] M Corey See interpretation g/dL 03/07/2019 3:08 PM EDT [facility] Interpretation (PE) See Note 03/07/2019 3:08 PM EDT [facility] Comment:There is a faint mon oclonal band, too small for quantification. Confirmed by gel. Reviewed by Brionna Brannock, M.D. Serum specimen (specimen) 02/28/2019 3:00 PM EDT 02/28/2019 3:30 PM EDT us Aris Moctezuma MD LAB BLOOD ORDERABLES Final Resul t [facility] [address] [id number], [facility] * (ABNORMAL) Renal Function Panel w/EGFR (02/28/2019 3:00 PM EDT) Sodium 138 133 - 146 mmol/L 02/28/2019 4:02 PM EDT [facility] Potassium 5.6(H) 3.5 - 5.3 mmol/L 02/28/2019 4:02 PM EDT [facility] Chloride 111(H) 98 - 110 mmol/L 02/28/2019 4:02 PM EDT [facility] CO2 19(L) 21 - 33 mmol/L 02/28/2019 4:02 PM EDT [facility] Anion Gap 8 3 - 16 mmol/L 02/28/2019 4:02 PM EDT [facility] BUN 42(H) 7 - 25 mg/dL 02/28/2019 4:02 PM EDT [facility] Creatinine 3.30(H) 0.60 - 1.30 mg/dL 02/28/2019 4:02 PM EDT [facility] Glucose 199(H) 70 - 100 mg/dL 02/28/2019 4:02 PM EDT [facility] Calcium 8.5(L) 8.6 - 10.3 mg/dL 02/28/2019 4:02 PM EDT [facility] Phosphorus 2.7 2.1 - 4.7 mg/dL 02/28/2019 4:02 PM EDT [facility] Albumin 3.5 3.5 - 5.7 g/dL 02/28/2019 4:02 PM EDT [facility] Osmolality, Calculated 302 278 - 305 mOsm/kg 02/28/2019 4:02 PM EDT [facility] eGFR AA CKD-EPI 25 See note. 9 4:02 PM EDT [facility] Comment: As of 2015 the estimated [...] equation to estimate glomerular filtration rate. ??Jennifer Router Operator Pin Med. 2009:150(9):604-12 eGFR NONAA CKD-EPI 21 See note. 2018 4:02 PM EDT [facility] Comment: As of 2015 [...] equation to estimate glomerular filtration rate. ??Jennifer Router Operator Pin Med. 2009:150(9):604-12 Plasma specimen (specimen) 02/28/2019 3:00 PM EDT 02/28/2019 3:29 PM EDT us Aris Moctezuma MD LAB BLOOD ORDERABLES Final Resul t [facility] [address] [id number] documented in this encounter Visit Diagnoses Diagnosis CARMEN (acute kidney injury) ([facility])- Primary CRD (chronic renal disease), stage IV ([facility]-HCC) Chronic kidney disease, Stage IV (severe) Nephrotic syndrome Nephrotic syndrome with unspecified pathological lesion in kidney documented in this encounter Additional Health Concerns Assessment Noted Time PHQ-9 Depression Total Score: 0 12/06/19 18 3:00 PM EDT documented as of this encounter Care Teams Credit Product Analyst Relationship Specialty Start Date End Date Edgar Fournier MD [address] [place] [address] PCP - General 08/18/17 06/23/21 Maile Valles, RN Txp Post Coordinator Transplant Hepatology 11/07/17 Jack Ordoñez MD [facility] [place] [address] Consulting Physician Transplant Hepatology 01/05/18 documented as of this encounter
--- OUTSIDE RECORDS SUMMARY | 2024-07-12 12:48 | XMS_ITS | Encounter Summary ---
Author Organization [facility] Address [address] [place] [address] Care Team Providers Care Morgue Librarian Name Role Phone Edgar Fournier MD Primary Care Provider [phone] Maile Valles RN Unavailable Unavail able Jack Ordoñez MD Unavailable [phone] Source Comments This information has been [...] release of HIV test results or diagnoses. [id number] Reason for Visit * Reason Comments Appointment Encounter Details Date Type Department Care Team (Late st Contact Info) Description 03/12/2019 Telephone [facility] Transplant Surgery at [facility] [address] [facility] [address] [place] [address] Varghese Shipley MD [address] [facility] [place] [address] Appointment Social History Tobacco Use Types Packs/Day [...] encounter Miscellaneous Notes * Telephone Encounter - Kalie Van - 03/12/2019 12:32 PM EDT Called pt (second attempt) to schedule a consult appt for the TRIMS program. Pt's listed phone numbers ring with no answer or option for VM. Sending a letter to pt's listed address in attempt to reach him for scheduling. documented in this encounter Plan of Treatment Upcoming Encounters Date Type Department Care Team (Late st Contact Info) Description 07/15/2024 9:00 AM EST Hospital Encounter [facility] Interventional Radiology [address] [place] [phone] Herve Carrillo MD [address] [facility] [address] Surgery [place] [phone] documented as of this encounter Visit Diagnoses Not on filedocumented in this encounter Additional Health Concerns Assessment Noted Time PHQ-9 Depression Total Score: 0 12/06/19 18 3:00 PM EDT documented as of this encounter Care Teams Morgue Librarian Relationship Specialty Start Date End Date Edgar Fournier MD [address] [place] [address] [place] [address] PCP - General 08/18/17 06/23/21 Maile Valles, JANA Txp Post Coordinator Transplant Hepatology 11/07/17 Jack Ordoñez MD [address] [place] [phone] Consulting Physician Transplant Hepatology 01/05/18 documented as of this encounter
--- OUTSIDE RECORDS SUMMARY | 2024-07-12 12:48 | XMS_ITS | Encounter Summary ---
Author Organization Health Address [facility] [place] [address] Care Team Providers Care Housekeeper Caregiver Name Role Phone Edgar Fournier MD Primary Care Provider [phone] Maile Valles RN Unavailable Unavail able Jack Ordoñez MD Unavailable [phone] Source Comments This information has been [...] release of HIV test results or diagnoses. [id number] Encounter Details Date Type Department Care Team (Late st Contact Info) Description 03/01/2019 Ref[facility] [phone] Maile Valles, JANA Social History Tobacco Use [...] Hospital Encounter [facility] Interventional Radiology [address] [place] [phone] Herve Carrillo MD [address] [facility] [address] [place] [address] documented as of this encounter Visit Diagnoses Not on filedocumented in this encounter Additional Health Concerns Assessment Noted Time PHQ-9 Depression Total Score: 0 12/06/19 18 3:00 PM EDT documented as of this encounter Care Teams Housekeeper Caregiver Relationship Specialty Start Date End Date Edgar Fournier MD [address] [place] [address] [place] [address] PCP - General 08/18/17 06/23/21 Maile Valles, JANA Txp Post Coordinator Transplant Hepatology 11/07/17 Jack Ordoñ[place] [address] [place] [phone] Consulting Physician Transplant Hepatology 01/05/18 documented as of this encounter
--- OUTSIDE RECORDS SUMMARY | 2024-07-12 12:48 | XMS_ITS | Encounter Summary ---
Author Organization [facility] Address [address] [place] [address] Care Team Providers Care Security Developer Name Role Phone Edgar Fournier MD Primary Care Provider [phone] Maile Valles RN Unavailable Unavail able Jack Ordoñez MD Unavailable [phone] Source Comments This information has been [...] release of HIV test results or diagnoses. [id number] Reason for Visit * Reason Comments Labs Only Encounter Details Date Type Department Care Team (Late st Contact Info) Description 02/28/2019 3:05 PM EDT Specimen [facility] [address] [place] [phone] Aris Moctezuma MD [address] [place], [place] [phone] CARMEN (acute kidney injury) ([facility]); CRD (chronic renal disease), stage IV (CMS-HCC); Nephrotic syndrome Social History Tobacco Use Types [...] Encounter [facility] Interventional Radiology [address] [place] [address] Herve Carrillo MD [address] [place] [address] documented as of this encounter Procedures Procedure Name Priority Date/Time Associated Diagnosis Comments SERUM PROT ELECTROPHORESIS,RFX IT Routine 02/28/2019 3:00 PM EDT CRD (chronic renal disease), stage IV ([facility]) Nephrotic syndrome RENAL FUNCTION PANEL W/EGFR Routine 02/28/2019 3:00 PM EDT CARMEN (acute kidney injury) ([facility]) documented in this encounter Results * (ABNORMAL) Serum Prot Electrophoresis w/Free Lt Chains, Reflex to IT (02/28/2019 3:00 PM EDT) IgG 719.0(L) 751.0 - 1,560.0 mg/dL 03/07/2019 3:08 PM EDT [facility] IgM 78.6 46.0 - 304.0 mg/dL 03/07/2019 3:08 PM EDT [facility] Albumin, Protein Electrophoresis 3.6(L) 3.70 - 4.90 g/dL 03/07/2019 3:08 PM EDT [facility] IgA 273.0 82.0 - 453.0 mg/dL 03/07/2019 3:08 PM EDT [facility] Alpha 1 0.3 0.20 - 0.40 g/dL 03/07/2019 3:08 PM EDT [facility] [place] 54.3(H) 3.3 - 19.4 mg/L 03/07/2019 3:08 PM EDT [facility] Alpha 2 0.8 0.50 - 1.00 g/dL 03/07/2019 3:08 PM EDT [facility] Lambda 54.2(H) 5.7 - 26.3 mg/L 03/07/2019 3:08 PM EDT [facility] Beta 0.7 0.60 - 1.00 g/dL 03/07/2019 3:08 PM EDT [facility] Gamma Globulin 0.7 0.50 - 1.50 g/dL 03/07/2019 3:08 PM EDT [facility] [place]/Lambda Ratio 1.00 0.26 - 1.65 ratio 03/07/2019 3:08 PM EDT [facility] Total Protein (PE) 6.0(L) 6.4 - 8.9 g/dL 03/01/2019 7:30 AM EDT [facility] M Corey See interpretation g/dL 03/07/2019 3:08 PM EDT [facility] Interpretation (PE) See Note 03/07/2019 3:08 PM EDT [facility] Comment:There is a faint mon oclonal band, too small for quantification. Confirmed by gel. Reviewed by Brionna Cedeño M.D. Serum specimen (specimen) 02/28/2019 3:00 PM EDT 02/28/2019 3:30 PM EDT us Aris Moctezuma MD LAB BLOOD ORDERABLES Final Resul t [facility] [address] [id number], [facility] * (ABNORMAL) Renal Function Panel w/EGFR (02/28/2019 3:00 PM EDT) Sodium 138 133 - 146 mmol/L 02/28/2019 4:02 PM EDT [facility] Potassium 5.6(H) 3.5 - 5.3 mmol/L 02/28/2019 4:02 PM EDT [facility] Chloride 111(H) 98 - 110 mmol/L 02/28/2019 4:02 PM EDT [facility] CO2 19(L) 21 - 33 mmol/L 02/28/2019 4:02 PM EDT [facility] Anion Gap 8 3 - 16 mmol/L 02/28/2019 4:02 PM EDT [facility] BUN 42(H) 7 - 25 mg/dL 02/28/2019 4:02 PM EDT [facility] Creatinine 3.30(H) 0.60 - 1.30 mg/dL 02/28/2019 4:02 PM EDT [facility] Glucose 199(H) 70 - 100 mg/dL 02/28/2019 4:02 PM T [facility] Calcium 8.5(L) 8.6 - 10.3 mg/dL 02/28/2019 4:02 PM EDT [facility] Phosphorus 2.7 2.1 - 4.7 mg/dL 02/28/2019 4:02 PM [facility] Albumin 3.5 3.5 - 5.7 g/dL 02/28/2019 4:02 PM [facility] Osmolality, Calculated 302 278 - 305 mOsm/kg 02/28/2019 4:02 PM [facility] eGFR AA CKD-EPI 25 See note. 9 4:02 PM [facility] Comment: As of 2015 the estimated [...] equation to estimate glomerular filtration rate. ??Jennifer Charge Weigher Med. 2009:150(9):604-12 eGFR NONAA CKD-EPI 21 See note. 2018 4:02 PM [facility] Comment: As of 2015 the estimated [...] equation to estimate glomerular filtration rate. ??Jennifer Charge Weigher Med. 2009:150(9):604-12 Plasma specimen (specimen) 02/28/2019 3:00 PM EDT 02/28/2019 3:29 PM EDT us Aris Moctezuma MD LAB BLOOD ORDERABLES Final Resul t [facility] [address] documented in this encounter Visit Diagnoses Diagnosis CARMEN (acute kidney injury) (CMS-HCC) CRD (chronic renal disease), stage IV (CMS-HCC) Chronic kidney disease, Stage IV (severe) Nephrotic syndrome Nephrotic syndrome with unspecified pathological lesion in kidney documented in this encounter Additional Health Concerns Assessment Noted Time PHQ-9 Depression Total Score: 0 12/06/19 18 3:00 PM EDT documented as of this encounter Care Teams Security Developer Relationship Specialty Start Date End Date Edgar Fournier MD [address] [place] [address] [place] [address] PCP - General 08/18/17 06/23/21 Maile Valles, RN Txp Post Coordinator Transplant Hepatology 11/07/17 Jack Ordoñez MD [address] [place] [address] Consulting Physician Transplant Hepatology 01/05/18 documented as of this encounter
--- OUTSIDE RECORDS SUMMARY | 2024-07-12 12:48 | XMS_ITS | Encounter Summary ---
Author Organization Health Address [facility] [place] [address] Care Team Providers Care Bat Lathe Operator Name Role Phone Edgar Fournier MD Primary Care Provider [phone] Maile Valles RN Unavailable Unavail able Jack Ordoñez MD Unavailable [phone] Source Comments This information has been [...] release of HIV test results or diagnoses. [id number] Encounter Details Date Type Department Care Team (Late st Contact Info) Description 05/17/2019 Telephone [facility] Liver Transplant at Outpatient [address] [address] Anne Whitt MA Social History Tobacco Use [...] Description 07/15/2024 9:00 AM EST Hospital Encounter [facility] Interventional Radiology [address] [place] [phone] Herve Carrillo MD [address] [facility] [address] Surgery [place] [address] documented as of this encounter Visit Diagnoses Not on filedocumented in this encounter Additional Health Concerns Assessment Noted Time PHQ-9 Depression Total Score: 0 12/06/19 18 3:00 PM EDT documented as of this encounter Care Teams Bat Lathe Operator Relationship Specialty Start Date End Date Edgar Fournier MD [address] [place] [address] [place] [address] PCP - General 08/18/17 06/23/21 Maile Valles, RN Txp Post Coordinator Transplant Hepatology 11/07/17 Jack Ordoñez MD [address] [place] [phone] Consulting Physician Transplant Hepatology 01/05/18 documented as of this encounter
--- OUTSIDE RECORDS SUMMARY | 2024-07-12 12:48 | XMS_ITS | Encounter Summary ---
Author Organization [facility] Address [facility] [place] [address] Care Team Providers Care Tetryl Wringer Operator Name Role Phone Edgar Fournier MD Primary Care Provider [phone] Maile Valles RN Unavailable Unavail able Jack Ordoñez MD Unavailable [phone] Source Comments This information has been [...] release of HIV test results or diagnoses. [id number] Reason for Visit * Reason Comments Results Encounter Details Date Type Department Care Team (Late st Contact Info) Description 02/18/2019 Telephone [facility] Liver Transplant at Outpatient [address] [address] Jack Shaikh RN Results Social History Tobacco Use Types Packs/Day [...] Telephone Encounter - Maile Valles RN - 02/20/2019 10:13 AM EDT Reviewed provider recommendations with patient who verbalized understanding. Patient questioned if a referral to kidney transplant was placed by Dr. Polanco as he thought she was going to. * Telephone Encounter - Maile Valles RN - 02/19/2019 4:[address] Ordoñez: Liver labs are fine. Per Dr. Polanco: Everything is stable. No new recs. Follow up with general neph as scheduled. * Telephone Encounter - Jack Shaikh RN - 02/18/2019 11:19 AM EDT Lab results from 02/12/19 reviewed with following abnormalities noted: K 5.4 BUN 45 CR 3.35 Alk Phos 130 Other LFTs within normal limits FK <2.[address] Polanco on 02/12/19 Will forward to provider for review and recommendations. documented in this encounter Plan of Treatment Upcoming Encounters Date Type Department Care Team (Late st Contact Info) Description 07/15/2024 9:00 AM EST Hospital Encounter [facility] Interventional Radiology [address] [place] [phone] Herve Carrillo MD [address] [facility] [address] Surgery [place] [address] documented as of this encounter Visit Diagnoses Not on filedocumented in this encounter Additional Health Concerns Assessment Noted Time PHQ-9 Depression Total Score: 0 12/06/19 18 3:00 PM EDT documented as of this encounter Care Teams Tetryl Wringer Operator Relationship Specialty Start Date End Date Edgar Fournier MD [address] [place] [address] PCP - General 08/18/17 06/23/21 Maile Valles, RN Txp Post Coordinator Transplant Hepatology 11/07/17 Jack Ordoñez MD [facility]8 [place] [address] Consulting Physician Transplant Hepatology 01/05/18 documented as of this encounter
--- OUTSIDE RECORDS SUMMARY | 2024-07-12 12:48 | XMS_ITS | Encounter Summary ---
Author Organization [facility] Address [facility] [place] [address] Care Team Providers Care Software Educator Name Role Phone Edgar Fournier MD Primary Care Provider [phone] Maile Valles RN Unavailable Unavail able Jack Ordoñez MD Unavailable [phone] Source Comments This information has been [...] release of HIV test results or diagnoses. [id number] Reason for Visit * Reason Comments Medication Refill Encounter Details Date Type Department Care Team (Late st Contact Info) Description 06/21/2019 Refill [facility] [address] [place] [phone] Anne Whitt MA S/P liver transplant ([facility]); Immunosuppression ([facility]) Social History Tobacco Use Types Packs/Day Years [...] Hospital Encounter [facility] Interventional Radiology [address] [place] [phone] Herve Carrillo MD [address] [facility] [address] [place] [phone] documented as of this encounter Visit Diagnoses Diagnosis S/P liver transplant (CMS-HCC) Immunosuppression (CMS-HCC) documented in this encounter Additional Health Concerns Assessment Noted Time PHQ-9 Depression Total Score: 0 12/06/19 18 3:00 PM EDT documented as of this encounter Care Teams Software Educator Relationship Specialty Start Date End Date Edgar Fournier MD [address] [place] [address] [place] [address] PCP - General 08/18/17 06/23/21 Maile Valles, RN Txp Post Coordinator Transplant Hepatology 11/07/17 Jack Ordoñez [place] [address] [place] [phone] Consulting Physician Transplant Hepatology 01/05/18 documented as of this encounter
--- OUTSIDE RECORDS SUMMARY | 2024-07-12 12:48 | XMS_ITS | Encounter Summary ---
Author Organization Health Address [facility] [place] [address] Care Team Providers Care Summer Law Clerk Name Role Phone Edgar Fournier MD Primary Care Provider [phone] Maile Valles RN Unavailable Unavail able Jack Ordoñez MD Unavailable [phone] Source Comments This information has been [...] release of HIV test results or diagnoses. [id number] Health Encounter Details Date Type Department Care Team (Late st Contact Info) Description 03/20/[address] [facility] [phone] Ashish Flood [facility] [id number] Social History Tobacco Use Types Packs/Day Years [...] of this encounter Progress Notes * Ashish Miguel Remigio - 03/20/2019 10:49 AM EDT Ashish graves [facility] [id number] GS referral active and primary medicare a/b No active secondary nick GOMEZ mdcd is termed Calls to patients cell are blocked , home # no answer VM indicates not set up Referral is underinsured for a GS procedure and not financially cleared documented in this encounter Plan of Treatment Upcoming Encounters Date Type Department Care Team (Late st Contact Info) Description 07/15/2024 9:00 AM EST Hospital Encounter [facility] Interventional Radiology [address] [place] [phone] Herve Carrillo MD [address]130 [facility] 3200 Surgery [place] [phone] documented as of this encounter Visit Diagnoses Not on filedocumented in this encounter Additional Health Concerns Assessment Noted Time PHQ-9 Depression Total Score: 0 12/06/19 18 3:00 PM EDT documented as of this encounter Care Teams Summer Law Clerk Relationship Specialty Start Date End Date Edgar Fournier MD [address] [place] [address] [place] [address] PCP - General 08/18/17 06/23/21 Maile Valles, RN Txp Post Coordinator Transplant Hepatology 11/07/17 Jack Ordoñez MD [address] [place] [phone] Consulting Physician Transplant Hepatology 01/05/18 documented as of this encounter
--- OUTSIDE RECORDS SUMMARY | 2024-07-12 12:48 | XMS_ITS | Encounter Summary ---
Author Organization [facility] Address [facility]0 [place] [address] Care Team Providers Care Protective Signal Operator Name Role Phone Edgar Fournier MD Primary Care Provider [phone] Maile Valles RN Unavailable Unavail able Jack Ordoñez MD Unavailable [phone] Source Comments This information has been [...] release of HIV test results or diagnoses. [id number] Reason for Referral * Physician/ANUSHA (Routine) - Closed Specialty Diagnoses / Procedures Referred By Contvidal t Referred To Contact [facility] Bariatric Surgery Diagnoses Morbid obesity ([facility]) Varghese Shipley MD [address] [place] [address] Phone: tel: fax: Referral ID Status Reason Start Date Expiration Date Visits Re quested Visits Authorized [id number] Closed 03/07/2019 09/03/2019 1 1 Scheduling Instructions The [facility] offers a comprehensive and multidisciplinary approach to weight loss and weight management. Whether you wish to lose 20 lbs., 50 lbs., 300 lbs. or more, the [facility] offers medically supervised weight management programs and bariatric surgery options designed to help you obtain and maintain a healthy weight for mcc success. Our non-surgical, medical weight loss program is a self-pay, meal replacement program offered to those with a BMI of 27 or greater and must be between ages 18 ? 64 to participate. Our surgical weight loss program is for those with a BMI of 35 or greater. Patients may have surgical benefits through their insurance company. Self-Pay options available. Our physicians and care team members are committed to every patients' success through this life-changing process. To learn more about or programs and to register for one of our FREE Informational Seminars visit [email or web address] or call for more details. Encounter Details Date Type Department Care Team (Late st Contact Info) Description 03/07/2019 Orders Only [facility] Transplant Surgery at [facility] [address] [facility] [address] [place] [address] Varghese Shipley MD [address] [facility]. Surgery [place], [place] [phone] Morbid obesity (CMS-HCC) (Primary Dx) Social History [...] Hospital Encounter [facility] Interventional Radiology [address] [place] [phone] Herve Carrillo MD [address] [facility] [address] [place] [phone] Scheduled Referrals Name Type Priority Associated Diagnoses Orde r Schedule Bariatric Surgery Outpatient Referral Routine Morbid obesity (CMS-HCC) Ordered: 03/07/2019 documented as of this encounter Visit Diagnoses Diagnosis Morbid obesity (CMS-HCC)- Primary Morbid obesity documented in this encounter Additional Health Concerns Assessment Noted Time PHQ-9 Depression Total Score: 0 12/06/19 18 3:00 PM EDT documented as of this encounter Care Teams Protective Signal Operator Relationship Specialty Start Date End Date Edgar Fournier MD [address] [place] [address] [place] [address] PCP - General 08/18/17 06/23/21 Maile Valles, RN Txp Post Coordinator Transplant Hepatology 11/07/17 Jack Ordoñez MD [address] [place] [phone] Consulting Physician Transplant Hepatology 01/05/18 documented as of this encounter
--- OUTSIDE RECORDS SUMMARY | 2024-07-12 12:48 | XMS_ITS | Encounter Summary ---
Author Organization [facility] Address [facility] [place] [address] Care Team Providers Care Berry Picker Machine Operator Name Role Phone Edgar Fournier MD Primary Care Provider [phone] Maile Valles RN Unavailable Unavail able Jack Ordoñez MD Unavailable [phone] Source Comments This information has been [...] release of HIV test results or diagnoses. [id number] Reason for Visit * Reason Comments Appointment Encounter Details Date Type Department Care Team (Late st Contact Info) Description 03/05/2019 Telephone [facility] Transplant Surgery at [facility] [address] [address] Kalie Van Appointment Social History Tobacco Use Types Packs/Day [...] Miscellaneous Notes * Telephone Encounter - Kalie Hafeponcho - 03/05/2019 2:02 PM EDT Called pt to schedule a consult appt for the TRIMS program. Pt's listed phone numbers ring with no answer or option for VM. Will follow-up to arrange. documented in this encounter Plan of Treatment Upcoming Encounters Date Type Department Care Team (Late st Contact Info) Description 07/15/2024 9:00 AM EST Hospital Encounter [facility] Interventional Radiology [address] [place] [phone] Herve Carrillo MD 3130 [facility] 3200 Surgery [place] [phone] documented as of this encounter Visit Diagnoses Not on filedocumented in this encounter Additional Health Concerns Assessment Noted Time PHQ-9 Depression Total Score: 0 12/06/19 18 3:00 PM EDT documented as of this encounter Care Teams Berry Picker Machine Operator Relationship Specialty Start Date End Date Edgar Fournier MD [address] [place] [address] [place] [address] PCP - General 08/18/17 06/23/21 Maile Valles, RN Txp Post Coordinator Transplant Hepatology 11/07/17 Jack Ordoñez MD [address] [place] [phone] Consulting Physician Transplant Hepatology 01/05/18 documented as of this encounter
--- OUTSIDE RECORDS SUMMARY | 2024-07-12 12:48 | XMS_ITS | Encounter Summary ---
Author Organization [facility] Address [facility] [place] [address] Care Team Providers Care Roll Grinder Operator Name Role Phone Edgar Fournier MD Primary Care Provider [phone] Maile Valles RN Unavailable Unavail able Jack Ordoñez MD Unavailable [phone] Source Comments This information has been [...] release of HIV test results or diagnoses. [id number] Reason for Visit * Reason Comments Medication Refill Encounter Details Date Type Department Care Team (Late st Contact Info) Description 04/16/2019 Refill [facility] [place] [phone] Lynnette Muhammad MA S/P liver transplant ([facility]); Immunosuppression ([facility]) Social History Tobacco Use Types Packs/Day Years [...] Hospital Encounter [facility] Interventional Radiology [address] [place] [phone] Herve Carrillo MD 3130 [facility] 3200 [place] [phone] documented as of this encounter Visit Diagnoses Diagnosis S/P liver transplant (CMS-HCC) Immunosuppression (CMS-HCC) documented in this encounter Additional Health Concerns Assessment Noted Time PHQ-9 Depression Total Score: 0 12/06/19 18 3:00 PM EDT documented as of this encounter Care Teams Roll Grinder Operator Relationship Specialty Start Date End Date Edgar Fournier MD [address] [place] [address] [place] [address] PCP - General 08/18/17 06/23/21 Maile Valles, JANA Txp Post Coordinator Transplant Hepatology 11/07/17 Jack Ordoñez MD [address] [place] [phone] Consulting Physician Transplant Hepatology 01/05/18 documented as of this encounter
--- OUTSIDE RECORDS SUMMARY | 2024-07-12 12:48 | XMS_ITS | Encounter Summary ---
Author Organization [facility] Address [facility] [place] [address] Care Team Providers Care Farmworkers Name Role Phone Edgar Fournier MD Primary Care Provider [phone] Maile Valles RN Unavailable Unavail able Jack Ordoñez MD Unavailable [phone] Source Comments This information has been [...] release of HIV test results or diagnoses. [id number] Reason for Visit * Auth/Cert Specialty Diagnoses / Procedures Referred By Contvidal t Referred To Contact Transplant Diagnoses [facility] [address] [place] [address] Phone: tel: Referral ID Status Reason Start Date Expiration Date Visits Re quested Visits Authorized [id number] 1 1 Encounter Details Date Type Department Care Team (Late st Contact Info) Description 06/27/2019 8:22 PM EST - 07/01/2019 3:15 PM EST Hospital Encounter [address] [place] [phone] Unknown, Attending Provider Robin Roberts MD [address] [place] [address] Malinda Rhodes MD Diarrhea in adult patient; Immunosuppression ([facility] Type 2 diabetes 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, with long-term current use of insulin ([facility]); Metabolic acidosis; Acute renal failure superimposed on stage 3 chronic kidney disease, unspecified acute renal failure type ([facility]); Hyperkalemia; Anemia, unspecified type; Neuropathy; S/P liver transplant ([facility]); Hyperglycemia; Gastroesophageal reflux disease, esophagitis presence not specified; CKD (chronic kidney disease) stage 3, GFR 30-59 ml/min ([facility]) Discharge Disposition: Home or Self Care WITHOUT [...] Sign Reading Time Taken Comments Blood Pressure 142/85 07/01/2019 11:00 AM EST Pulse 67 07/01/2019 11:00 AM EST Temperature 36.7 ??C (98.1 ??F) 07/01/2019 1 1:00 AM EST Respiratory Rate 16 07/01/2019 11:0 0 AM EST Oxygen Saturation 93% 07/01/2019 11: 00 AM EST Inhaled Oxygen Concentration 93% 11:00 AM EST Weight 132.9 kg (292 lb 14.4 oz) 07/01/2019 4:43 AM EST Height 170.2 cm (5' 7 ) 06/27/2019 8:44 PM EST Body Mass Index 45.87 06/27/2019 8:44 PM EST documented in this encounter Discharge Summaries * Bayron Dawson MD - 07/01/2019 3:15 PM EST Subspecialty Follow-up Appointment Chart Note Service: Liver Transplant Subspecialty Follow-up Disposition: The patient requires subspecialty follow-up as noted below: Note: This information is for [facility] Scheduling use only. It is not the responsibility of the primaryinpatient service to schedule this appointment. 1. Visit type:Faculty Clinic 2. Name of provider to schedule with: Dr Ordoñez 3. Timing: The appointment should be scheduled in 2 weeks. 4. Location: [facility] 5. Ok to overbook if there are no open appointment slots?: No 6. Reason for follow up: OLT 09/2017 7. Comments: recent change in tacrolimus to 3 mg daily 8. In case of scheduling conflict, contact Pager/Cell phone number: [phone]/ GI fellow Bayron Barba MD Gastroenterology and Hepatology Fellow Pager: [phone] (on weekdays after 5 pm and weekends/holidays, please page GI fellow regional recruiter) * Myrna Andrew MD - 07/01/2019 12:35 PM EST Subspecialty Follow-up Appointment Chart Note Service: Nephrology Subspecialty Follow-up Disposition: The patient requires subspecialty follow-up as noted below: Note: This information is for [facility] Scheduling use only. It is not the responsibility of the primaryinpatient service to schedule this appointment. 1. Visit type:Fellow Clinic 2. Name of provider to schedule with: Aris Moctezuma MD 3. Timing: The appointment should be scheduled in 2 weeks. 4. Location: [facility] 5. Ok to overbook if there are no open appointment slots?: No 6. Reason for follow up: Advanced CKD 7. Comments: 8. In case of scheduling conflict, contact Pager/Cell phone number: [phone] MYRNA ANDREW MD 07/01/2019 12:35 PM Cosigned by Sandra Carranza MD at 07/01/2019 2:04 PM EST * Malinda Rhodes MD - 07/01/2019 7:20 AM EST Images from the original note were not included. [facility] Department of Internal Medicine Inpatient Discharge Summary Patient: Leoncio Rollins CSN: [id number] Date of Admission: 06/27/2019 Date of Discharge: 07/01/2019 Attending Physician: Malinda Rhodes MD Diagnoses Present on Admission Past Medical History: Diagnosis Date ??? Acute pancreatitis ??? Ascites ??? Diabetes mellitus (CMS Dx) ??? Esophageal varices with bleeding (CMS Dx) ??? GERD (gastroesophageal reflux disease) ??? Hepatic encephalopathy (CMS Dx) ??? Hypertension ??? 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 Vitamin D deficiency Discharge Diagnoses Active Hospital Problems Diagnosis Date Noted ??? Metabolic acidosis [E87.2] 06/28/2019 ??? Sppkt-sa-buswoep kidney injury (CMS Dx) [N17.9, N18.9] 01/12/2019 ??? Immunosuppression (CMS Dx) [D89.9] 10/31/2017 ??? Liver transplant recipient (CMS Dx) [Z94.4] 10/31/2017 ??? Diabetes mellitus (CMS Dx) [E11.9] ??? Hypertension [I10] Resolved Hospital Problems Diagnosis Date Noted Date Resolved ??? Hyperkalemia [E87.5] 06/28/2019 07/01/2019 ??? Diarrhea in adult patient [R19.7] 06/28/2019 07/01/2019 Operations/Procedures Performed (include dates) Surgeries: None Lines/Drains/Airways: Patient Lines/Drains/Airways Status Active Line / PIV Line Name: Placement date: Placement time: Site: Days: Peripheral IV 06/29/19 Right Antecubital 06/29/19 1600 Antecubital 1 NHSN Device Days (06/01/2019 to 06/30/2019) Central line: 0 Urinary catheter: 0 Notable Imaging Studies: EXAM: US RETROPERITONEAL COMPLETE ?? INDICATION: CARMEN on CKD, ?? COMPARISON: Abdominal ultrasound dated 01/12/2019 ?? TECHNIQUE: Grayscale and color Doppler imaging acquisition was performed for evaluation of the kidneys and urinary bladder. ? FINDINGS: ?? Right Kidney: 9.9 x 5.3 x 5.1 cm. There is no hydronephrosis. Normal echogenicity. No masses or calculi are appreciated. ?? Left Kidney: 10.4 x 5.6 x 5.7 cm. There is no hydronephrosis. Normal echogenicity. No masses or calculi are appreciated. ?? Bladder: Evaluation of the bladder is limited, but is grossly unremarkable. ?? Other: None ? IMPRESSION: ?? Normal renal ultrasound. ?? Approved by Jimmy Velasquez MD on 06/28/2019 3:29 PM EST ?? I have personally reviewed the images and I agree with this report. ?? Report Verified by: Lion Mike MD at 06/28/2019 4:36 PM EST Other Procedures: None Consulting Services (include reason) 1. Transplant Nephrology - CARMEN on CKD 2. Hepatology - h/o of OLT on IS Allergies Codeine Sulfate Codeine Discharge Medications Medication List TAKE these medications, which are NEW Quantity/Refills sodium bicarbonate 650 MG tablet Take 2 tablets (1,300 mg total) by mouth 2 times a day. Quantity: 120 tablet Refills: 0 TAKE these medication, which have CHANGED Quantity/Refills cloNIDine HCl 0.1 MG tablet Commonly known as: CATAPRES Take 1 tablet (0.1 mg total) by mouth if needed. What changed: when to take this Quantity: 60 tablet Refills: 0 entecavir 0.5 MG tablet Commonly known as: BARACLUDE Take 1 tablet (0.5 mg total) by mouth every 72 hours. What changed: when to take this Quantity: 15 tablet Refills: 11 gabapentin 100 MG capsule Commonly known as: NEURONTIN Take 4 capsules (400 mg total) by mouth daily. What changed: ?? how much to take ?? when to take this Quantity: 180 capsule Refills: 0 insulin NPH isoph U-100 human 100 unit/mL (3 mL) Inpn Commonly known as: HumuLIN N NPH Insulin KwikPen Inject subcutaneously 20 units in the AM and 8 units in the PM. What changed: additional instructions Quantity: 15 mL Refills: 5 tacrolimus ER (24 HR) 1 mg Tb24 Commonly known as: ENVARSUS XR Take 3 tablets (3 mg total) by mouth daily. Per Hepatology recommendations What changed: ?? how much to take ?? additional instructions Quantity: 60 tablet Refills: 5 TAKE these [...] 5 blood-glucose meter Misc Commonly known as: [employer] VERIO SYSTEM Use as instructed. Quantity: 1 each Refills: 0 carBAMazepine 200 mg tablet Commonly known as: TEGRETOL Take 200 mg by mouth at bedtime. Refills: 0 carvedilol 25 MG tablet Commonly known as: COREG Take 2 tablets (50 mg total) by mouth 2 times a day with meals. Quantity: 120 tablet Refills: 5 doxazosin 8 MG tablet Commonly known as: CARDURA 8 mg 2 times a day. Refills: 0 famotidine 20 MG tablet Commonly known as: PEPCID Take 20 mg by mouth daily. Refills: 0 fluticasone propionate 50 mcg/actuation nasal spray Commonly known as: FLONASE use 2 spray(s) in each nostril daily Refills: 11 insulin glulisine U-100 100 unit/mL injection Commonly known as: APIDRA U-100 INSULIN Inject 5 Units subcutaneously 3 times a day with meals. Quantity: 10 mL Refills: 0 lancets 33 gauge Misc Commonly known as: ONETOUCH DELICA LANCETS Use 1 strip as directed 4 times daily before meals and at bedtime. Quantity: 150 each Refills: 5 mycophenolate 250 mg capsule Commonly known as: CELLCEPT Take 3 capsules (750 mg total) by mouth 2 times a day. Quantity: 180 capsule Refills: 5 NIFEdipine 90 MG (OSM) 24 [...] * pen needle, diabetic 32 gauge x Ndle For use with insulin pen. Use as instructed. Quantity: 150 each Refills: 5 polyethylene glycol 17 gram packet Commonly known as: MIRALAX Take 17 g by mouth 2 times a day as needed. Quantity: 100 packet Refills: 0 torsemide 20 MG tablet Commonly known as: DEMADEX Take 1 tablet (20 mg total) by mouth daily. Quantity: 30 tablet Refills: 5 VITAMIN D2 50,000 unit capsule Generic drug: ergocalciferol Take 50,000 Units by mouth once a week. Refills: 0 * This list has 2 medication(s) that are the same as other medications prescribed for you. Read thedirections carefully, and ask your doctor or other care provider to review them with you. Where to Get Your Medications These medications were sent to [facility] [address] [facility] [address] [address] Hours: Monday - Monday: 8:45AM - 5:00PM ?? sodium bicarbonate 650 MG tablet Information about where to get these medications is not yet available Ask your nurse or doctor about these medications ?? entecavir 0.5 MG tablet ?? gabapentin 100 MG capsule ?? insulin NPH isoph U-100 human 100 unit/mL (3 mL) Inpn ?? tacrolimus ER (24 HR) 1 mg Tb24 Reason for Admission Leoncio Rollins is a 44 y.o. male with PMH of CKD, KIM Cirrhosis s/p liver transplant 09/2017 who presented to OSH following several days of nausea, vomiting and diarrhea and was found to have CARMEN, transferred here for evaluation by transplant nephrology. Hospital Course By Problem #Acute kidney injury on CKD. Component thought to be 2/2 to GI losses. S/p IV hydration, but no considerable improvement since admission. Patient continued to have adequate urine output and stable electrolytes. Transplant Nephrology was consulted and followed during admission. We renally dosed and adjusted some medications. Renal US completed without findings. SPEP and CMV serum in process at discharge. Renal bx was not thought to be of utility at this time. Plan is for close follow up in Nephrology clinic. It was recommended he continue his torsemide, PO bicarb added. ?? #Hyperkalemia -resolved. Due to above.??Resolved without issues during admission. ?? #Nongap metabolic acidosis. Due to renal disease. We have changed IV bicarb to PO bicarb per Nephrology recommendations, will discharge on oral bicarb. ?? #Normocytic anemia. Likely related to anemia of chronic disease, chronic kidney disease. Not JOSE ALFREDO byiron studies. Patient received 1 unit PRBCs on 06/29. Hgb low but stable without signs of blood loss. Hemolysis labs negative. He will receive SQ aranesp prior to discharge. Follow up outpatient. Lab Results Component Value Date ?? IRON 51 05/15/2019 ?? TIBC 266 05/15/2019 ?? FERRITIN 225 05/15/2019 ? #S/p OLT. LFTs stable. Continue IS. Appreciate hepatology consultation, continue tacro and MMF. tacro level <2.0 consistently. Per Hepatology recommendations, increase tacrolimus to 3 mg daily. ?? #T2DM.??Decrease insulin given low normal BGs and CARMEN and poor insulin clearance. May need further adjustments. But will discharge one NPH 20 units q HS and 8 units qHS which he is stable on here andwell controlled. He also will have SSI at home to be continued. Will need follow up of his glucoses. Lab Results Component Value Date ?? HGBA1C 7.2 (A) 05/15/2019 ? #Diarrhea - resolved. Negative cdif, GI pathogen panel, and negative fecal leuks. Doesn't sound infectious. Has resolved. ?? #HTN. Stable. Continue home meds. ?? Condition on Discharge 1. Functional Status: Normal 2. Mental Status: Normal 3. Diet / Tube Feeding / TPN: Diet Orders Dietary nutrition supplements starting at 06/29 1008 Diet renal consistent carbohydrates 1900 - 2100 kcal starting at 06/28 0822 As listed above 4. Respiratory / Lines & Tubes / Wounds: None required 5. Discharge Physical Exam: BP 142/85 (BP Location: Left arm, Patient Position: Sitting) Pulse 67 Temp 98.1 ??F (36.7 ??C) (Oral) Resp 16 Ht 5' 7 (1.702 m) Wt (!) 292 lb 14.4 oz (132.9 kg) SpO2 93% BMI 45.87 kg/m?? Physical Exam Constitutional: General: He is not in acute distress. Appearance: Normal appearance. He is obese. He is not ill-appearing, toxic- appearing or diaphoretic. HENT: Head: Normocephalic and atraumatic. Nose: Nose normal. No congestion. Mouth/Throat: Mouth: Mucous membranes are dry. Pharynx: Oropharynx is clear. No oropharyngeal exudate. Eyes: General: No scleral icterus. Extraocular Movements: Extraocular movements intact. Conjunctiva/sclera: Conjunctivae normal. Pupils: Pupils are equal, round, and reactive to light. Neck: Musculoskeletal: Normal range of motion and neck supple. Cardiovascular: Rate and Rhythm: Normal rate and regular rhythm. Heart sounds: No murmur. Pulmonary: Effort: Pulmonary effort is normal. No respiratory distress. Breath sounds: Normal breath sounds. No wheezing or rhonchi. Abdominal: General: Bowel sounds are normal. Tenderness: There is no tenderness. Musculoskeletal: Normal range of motion. General: No swelling or tenderness. Skin: General: Skin is warm and dry. Findings: No rash. Neurological: General: No focal deficit present. Mental Status: He is alert and oriented to person, place, and time. Cranial Nerves: No cranial nerve deficit. Psychiatric: Mood and Affect: Mood normal. Behavior: Behavior normal. Disposition Home independent Follow-Up Appointments No future appointments. No follow-up provider specified. Patient Instructions / Follow-Up Items for Receiving Physician 1. Nephrology and Hepatology to schedule follow up appointments with you. Please follow up with both Nephrology and Liver. Liver recommended today to increase your tacrolimus to 3 mg daily and to follow up. We had decreased your insulin here as you have not required as much. Please continue to monitor your glucoses at home. We also adjusted your gabapentin and entecavir dosing based on your kidney function. Continue your blood pressure medications as your were taking, including your water pill. Signed: Malinda Rhodes MD 07/01/2019, 2:13 PM I spent greater than 30 minutes on discharge documented in this encounter Discharge Instructions * Discharge Instructions* Malinda Rhodes MD - 07/01/2019 2:20 PM EST Please follow up with both Nephrology and Liver. Liver recommended today to increase your tacrolimus to 3 mg daily and to follow up. We had decreased your insulin here as you have not required as much. Please continue to monitor your glucoses at home. We also adjusted your gabapentin and entecavir dosing based on your kidney function. Continue your blood pressure medications as your were taking, including your water pill. You should take your clonidine as you were prior. documented in this encounter Medications at Time [...] mouth if needed. 8 blood sugar diagnostic [facility] Use to test blood sugar up to 4 times a day. Diagnosis for use: E 9.65. For use with One Touch Verio meters. 150 strip 5 8 03/18/20 22 blood-glucose meter (ONETOUCH VERIO SYSTEM) [facility] Use as instructed. 1 each 8 03/18/20 22 carvedilol (COREG) 25 MG tablet Take 2 tablets (50 mg total) by mouth 2 times a day with meals. 120 tablet 5 8 03/12/20 20 cloNIDine HCl (CATAPRES) 0.1 MG tablet Take 1 tablet (0.1 mg total) by mouth if needed. 60 tablet 9 07/25/20 19 entecavir (BARACLUDE) 0.5 MG tabletIndications:S /P liver transplant ([facility]),Gastroeso phageal reflux disease, esophagitis presence not specified,CKD (chronic kidney disease) stage 3, GFR 30-59 ml/min ([facility]),Immunosup pression ([facility]) Take 1 tablet (0.5 mg total) by mouth every 72 hours. 15 tablet 11 9 07/25/20 19 ergocalciferol (ERGOCALCIFEROL) 1,250 mcg (50,000 unit) capsule [...] 100 unit/mL (3 mL) InPnIndications:S/P liver transplant ([facility]),Hyperglyc emia Inject subcutaneously 20 units in the AM and 8 units in the PM. 15 mL 5 9 06/25/20 20 lancets (ONETOUCH DELICA LANCETS) 33 gauge Misc Use 1 strip as directed 4 times daily before meals and at bedtime. 150 each 5 8 03/18/20 22 mycophenolate (CELLCEPT) 250 mg capsuleIndications: S/P liver transplant ([facility]),Immunosup pression ([facility]) Take 3 capsules (750 mg total) by mouth 2 times a day. 180 capsule 5 9 07/25/20 19 ondansetron (ZOFRAN-ODT) 4 MG disintegrating tablet [...] as needed. 100 packet 9 06/25/20 20 sodium bicarbonate 650 MG tablet Take 2 tablets (1,300 mg total) by mouth 2 times a day. 120 tablet 07/01/2019 2:47 PM EST 9 07/25/20 tacrolimus ER, 24 HR, (ENVARSUS XR) 1 mg [id number]:S/P liver transplant (CMS-HCC),Immunosup pression (CMS-HCC) Take 3 tablets (3 mg total) by mouth daily. Per Hepatology recommendations 60 tablet 5 9 07/19/20 19 torsemide (DEMADEX) 20 MG tablet Take 1 tablet (20 mg total) by mouth daily. 30 tablet 5 9 07/25/20 19 documented as of this encounter Progress Notes * Myrna Andrew MD - 07/01/2019 3:15 PM EST Nephrology Clinic note 07/01/2019 7:04 PM Patient: Leoncio Rollins [id number] Date of Admit: 06/27/2019 LOS: 4 days Referring physician: No att. providers found Interval History: Doing well. Reports decreased urination today. No bleeding from any sites, Hb stable. Reason for Consult CARMEN on CKD History of Present Illness Pt is a 44 yo M c PMH of KIM cirrhosis s/p OLT in 09/2017, CKD stage IV/V, and HTN, who presented with nausea, vomiting, and diarrhea. Pt had nausea and diarrhea for 2 days and went to OSH 2 days ago. Pt was found to have CARMEN with Cr 4.8 and then transferred to for further evaluation. Pt was admitted in 01/2019 for fluid overload and had 13gm of proteinuria. Kidney biopsy was offered but pt refused at that time. Cr was around mid 3s over this year. Pt denies exposure to NSAIDs. Pt states he vomited once on Monday and diarrhea has resolved. Transplant nephrology was consulted for medical management of CARMEN on CKD. Past medical, family, and social histories were reviewed as previously documented. Updates were made as necessary. Review of Systems (Focused) Significant as listed in HPI otherwise GEN: no recent fever, chills or night sweats HEENT: no changes in vision, sore throat, rhinorrhea CV: no cp, sob or orthopnea Pulm: no cough or hemoptysis GI: + nausea and vomiting. No abd pain. Diarrhea not resolved : no bowel or bladder incontinence, no dysuria MSK: no muscle or joint pain Skin: no rashes, wounds or itching Allergies: NKDA Psych: no HI/SI Past Medical History Past Medical History: Diagnosis [...] ??? Alcohol use: No Medications Inpatient Meds: No medications prior to admission. Scheduled Meds: ??? aspirin 81 mg Oral Daily with breakfast ??? capsaicin Topical BID ??? carBAMazepine 200 mg Oral Nightly (2100) ??? carvedilol 50 mg Oral BID WC ??? cloNIDine HCl 0.1 mg Oral BID ??? entecavir 0.5 mg Oral Every Other Day ??? famotidine 20 mg Oral Daily 0900 ??? gabapentin 400 mg Oral BID ??? heparin 5,000 Units Subcutaneous 3 times per day ??? insulin lispro 0-5 Units Subcutaneous TID AC ??? insulin NPH 20 Units Subcutaneous QAM ??? insulin NPH 8 Units Subcutaneous Nightly (2100) ??? mycophenolate 750 mg Oral BID ??? NIFEdipine 90 mg Oral BID ??? polyethylene glycol 17 g Oral BID ??? sodium bicarbonate 1,300 mg Oral BID ??? sodium chloride 10 mL Intravenous QS ??? tacrolimus ER (24 HR) 2 mg Oral DAILY 0700 ??? terazosin 10 mg Oral BID Continuous Infusions: PRN medications: acetaminophen, dextrose 10% in water OR dextrose 10% in water, glucose, loperamide, methocarbamol, ondansetron OR ondansetron Allergies: Allergies Allergen Reactions ??? Codeine Sulfate Hyper ??? Codeine Other (See Comments) Becomes hyper Vital Signs Temp: [97.7 ??F (36.5 ??C)-98.1 ??F (36.7 ??C)] 98.1 ??F (36.7 ??C) Heart Rate: [67-81] 67 Resp: [16-18] 16 BP: (134-164)/(63-99) 142/85 FiO2: [21 %] 21 % No data found. Wt Readings from Last 3 Encounters: 07/01/19 (!) 292 lb 14.4 oz (132.9 kg) 02/28/19 (!) 282 lb (127.9 kg) 02/12/19 (!) 282 lb (127.9 kg) Admit Wt: Weight: (!) 285 lb (129.3 kg) Todays Wt: Weight: (!) 292 lb 14.4 oz (132.9 kg) Estimated body mass index is 45.87 kg/m?? as calculated from the following: Height as of this encounter: 5' 7 (1.702 m). Weight as of this encounter: 292 lb 14.4 oz (132.9 kg). Date 06/30/19 1500 - 07/01/1965807/01/19 07 - 07/02/19658(Discharged) Shift 5407-3105 4652-5161 24 Hour Total 1558-6455 6807-5709 9030-3565 24 Hour Total INTAKE P.O. 240 540 0 0 P.O. 240 540 0 0 Shift Total(mL/kg) 240(1.8) 540(4.1) 0(0) 0(0) OUTPUT Urine(mL/kg/hr) Urine Occurrence 1 x 2 x 2 x 2 x Emesis/NG output Emesis Occurrence 0 x 0 x 0 x Stool Stool Occurrence 0 x 1 x 1 x 1 x Shift Total(mL/kg) Weight (kg) 132.4 132.9 132.9 132.9 132.9 132.9 132.9 Intake/Output Summary (Last 24 hours) at 07/01/2019 1904 Last data filed at 07/01/2019 0758 Gross per 24 hour Intake 0 ml Output -- Net 0 ml I/O last 3 completed shifts: In: 540 [P.O.:540] Out: - RESPIRATORY Ventilator Setting: No data found. Fi02 Requirement: No data found. Last ABG: Lab Results Component Value Date PCO2 34 (L) 10/09/2017 [id number] 97.6 10/09/2017 Physical Exam General appearance: in NAD Head: Normocephalic, without obvious abnormality, atraumatic Mouth: no oral ulcers or thrush Neck: No JVD, trachea midline Lungs: clear to auscultation bilaterally and no respiratory distress Heart: regular rate and rhythm, no murmurs Abdomen: soft, non-tender non-distended Extremities: no leg edema Skin: No rashes/lesions noted, no skin tears Psych: good eye contact, normal affect Laboratory Data Recent Labs 06/29/19 0544 06/30/19 0406 07/01/19 0339 WBC 2.2* 2.4* 2.3* HGB 6.8* 7.6* 7.1* HCT 21.0* 22.6* 22.1* MCV 85.3 83.3 84.1 PLT 152 150 147 Recent Labs 06/29/19 0544 06/30/19 0406 07/01/19 0339 NA 141 141 141 K 4.8 4.9 4.6 CL 112* 110 111* CO2 19* 21 20* BUN 40* 38* 36* CREATININE 4.75* 4.54* 4.92* GLUCOSE 86 100 114* CALCIUM 7.1* 7.2* 7.3* PHOS 4.1 4.3 4.6 ANIONGAP 10 10 10 No results for input(s): INR, PROTIME, PTT in the last 72 hours. FSBS Range: Recent Labs 06/29/19 0958 06/29/19 1335 06/29/19 1752 06/30/19 0926 06/30/19 1256 06/30/19 1744 06/30/19201106/30/19 2221 07/01/19 1020 07/01/19 1344 POCGMD 101* 213* 134* 104* 127* 139* 159* 121* 136* 154* Recent Labs 06/29/19 0544 ALT 11 AST 12* ALKPHOS 113 BILITOT 0.2 Cardiac Labs: No results for input(s): CKTOTAL, CKMB, CKMBINDEX, TROPONINI, BNP, NTPROBNP in the last 72 hours. No results for input(s): CHOLTOT, TRIG, HDL, CHOLHDL, LDL in the last 72 hours. Invalid input(s): VLDCHOL Lab Results Component Value Date HGBA1C 7.2 (A) 05/15/2019 HGBA1C 7.4 (H) 12/13/2018 HGBA1C 5.3 01/02/2018 Nephro Labs: No results for input(s): COLORU, CLARITYU, PH, PROTEINUA, PHUR, LABSPEC, GLUCOSEU, BLOODU, LEUKOCYTESUR, NITRITE, BILIRUBINUR, UROBILINOGEN, RBCUA, WBCUA, BACTERIA, AMORPHOUS, CRYSTAL, CASTS in the last 72 hours. Invalid input(s): KEYTONESU No results for input(s): NAUR, KUR, CLUR in the last 72 hours. Invalid input(s): CO2UR, CRUR No results found for: MICROALBUR, [id number] Lab Results Component Value Date PTH 164.0 (H) 01/14/2019 CALCIUM 7.3 (L) 07/01/2019 PHOS 4.6 07/01/2019 Lab Results Component Value Date [id number] 15.8 (L) 01/14/2019 Anemia Labs: Lab Results Component Value Date IRON 51 05/15/2019 TIBC 266 05/15/2019 FERRITIN 225 05/15/2019 Lab Results Component Value Date [id number] 525 05/15/2019 Sepsis Marker Labs: No results for input(s): LACTATE in the last 72 hours. Lab Results Component Value Date FIBRINOGEN 192 (L) 10/08/2017 No results for input(s): TEGANGLE, TEGKTIME, [id number], TEGMAXAMPL, TEGRTIME, CBMZ in the last 72 hours. No results for input(s): ESR, CRP in the last 72 hours. No results found for: ESR, CRP Infectious Labs Urine cx: Lab Results Component Value Date COLORU Yellow 06/28/2019 CLARITYU Clear 06/28/2019 PROTEINUA >=500 (A) 06/28/2019 PHUR 5.0 06/28/2019 LABSPEC 1.015 06/28/2019 GLUCOSEU 150 (A) 06/28/2019 BLOODU Small (A) 06/28/2019 LEUKOCYTESUR Negative 06/28/2019 NITRITE Negative 06/28/2019 BILIRUBINUR Negative 06/28/2019 UROBILINOGEN <2.0 06/28/2019 RBCUA <1 06/28/2019 WBCUA 2 06/28/2019 BACTERIA Rare (A) 06/28/2019 Blood cx: Lab Results Component Value Date [...] found for: HIV1X2 No results found for: [id number] No results found for: VDRLCSF Lab Results Component Value Date HEPAIGM Nonreactive 08/21/2017 HEPBCAB Nonreactive 12/13/2018 No results found for: [id number] No results found for: [id number] In addition to the above an extensive amount of complex data in the patients lab and chart were reviewed. Diagnostic Studies US Retroperitoneal complete Final Result IMPRESSION: Normal renal ultrasound. Approved by Jimmy Velasquez MD on 06/28/2019 3:29 PM EST I have personally reviewed the images and I agree with this report. Report Verified by: Lion Mike MD at 06/28/2019 4:36 PM EST Assessment & Plan CARMEN on CKD Cr ~3.9 since 03/2019 Cr 4.60->4.59 > 4.9 Non-oliguric Known to have nephrotic range proteinuria - serologies negative except TERESA 1:160 and faint monoclonal band on SPEP on 02/28/19 Etiology of CKD and proteinuria unclear - diabetic nephropathy is possible despite A1c is not very high in the setting of CNI exposure Cr today 4.9 Immunosuppression: Current regimen - Cellcept 750 BID and Envarsus 2mg daily - Defer to liver team Vomiting and diarrhea: Now resolved Fecal WBC negative Acid/base electrolytes: No acute issues Volume/BP: Resumed home meds Heme: Hb 7.1 post transfusion. No concerns for hemolysis Continue to monitor Lab Results Component Value Date WBC 2.3 (L) 07/01/2019 RBC 2.62 (L) 07/01/2019 HGB 7.1 (L) 07/01/2019 HCT 22.1 (L) 07/01/2019 MCV 84.1 07/01/2019 MCH 26.9 (L) 07/01/2019 MCHC 32.0 07/01/2019 RDW 14.1 07/01/2019 PLT 147 07/01/2019 Hapto/LDH normal Ferritin 225, Iron sat 19% on 05/2019/ Plan to start Aranesp 100 mcg biweekly (weight based dosing), monitor Hb as outpatient. PLAN: Anemia of CKD, please start Aranesp 100 mcg every 2 weeks. Will monitor Hb as outpatient. follow-up in Nephrology clinic with Dr. Aris Moctezuma in 2 weeks. Will schedule follow-up with [facility] with Ms. Nani Correa for dialysis planning for future(message sent). OK to resume Torsemide 40 mg daily IS per helatology team. Signed: MYRNA ANDREW MD 7:04 PM Plan d/w with Tx attending and primary team. Cosigned by Sandra Carranza MD at 07/01/2019 11:26 PM EST Associated attestation - Sandra Carranza MD - 07/01/2019 11:26 PM EST I have seen and examined the patient, reviewed the labs, notes, assessments, and/or procedures performed by the fellow physician and I agree with the documented findings and plan of care. Plan for repeat labs in 1 week, nephrology followup in 2 weeks Progressive CKD, patient declined kidney biopsy in house, noted proteinuria Obtain HCV labs in nephrology followup, other serologic workup reviewed and negative Agree with as documented by fellow Sandra Carranza MD Transplant Nephrology Pager: [phone] * Bayron Dawson MD - 07/01/2019 1:08 PM EST [facility] CONSULT NOTE Name: Leoncio Rollins CSN: [id number] Consulted by: Malinda Rhodes MD Chief Complaint: OLT 09/2017, immunosuppression recs Patient ID: Leoncio Rollins is a 44 y.o. 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 Reported that symptoms started on Monday, had a total of 10 loose BM. Priorto this was in his normal state of health. Reports that his grandson was sick with similar symptomsa week prior. Denies fever, chills, sweats, abdominal pain, melena, hematemesis. Reports that this morning had a normal BM and feels that is back to his baseline. On presentation was noted to have CARMEN on CKD with Cr elevated to 4.6 (baseline ~ 3.5) and hyperkalemia with K 6. Tacrolimus was held and continued with Cellcept. Received Kayexalate for hyperkalemia. Interval history: - Tacrolimus dose < 2 on 06/28 and 06/29 - hyperkalemia resolved - planning to discharge today Review of Systems Denies fever, chills, sweats, abdominal pain, nausea, vomiting, diarrhea. Scheduled Meds: Allergies Allergen Reactions ??? Codeine Sulfate Hyper ??? Codeine Other (See Comments) Becomes hyper ??? aspirin 81 mg Oral Daily with breakfast ??? capsaicin Topical BID ??? carBAMazepine 200 mg Oral Nightly (2100) ??? carvedilol 50 mg Oral BID WC ??? cloNIDine HCl 0.1 mg Oral BID ??? darbepoetin giancarlo 100 mcg Subcutaneous Once ??? entecavir 0.5 mg Oral Every Other Day ??? famotidine 20 mg Oral Daily 0900 ??? gabapentin 400 mg Oral BID ??? heparin 5,000 Units Subcutaneous 3 times per day ??? insulin lispro 0-5 Units Subcutaneous TID AC ??? insulin NPH 20 Units Subcutaneous QAM ??? insulin NPH 8 Units Subcutaneous Nightly (2099) ??? mycophenolate 750 mg Oral BID ??? NIFEdipine 90 mg Oral BID ??? polyethylene glycol 17 g Oral BID ??? sodium bicarbonate 1,300 mg Oral BID ??? sodium chloride 10 mL Intravenous QS ??? tacrolimus ER (24 HR) 2 mg Oral DAILY 0700 ??? terazosin 10 mg Oral BID PRN Meds: acetaminophen, dextrose 10% in water OR dextrose 10% in water, glucose, loperamide, methocarbamol, ondansetron OR ondansetron Physical exam: Temp: [97.7 ??F (36.5 ??C)-98.2 ??F (36.8 ??C)] 98.1 ??F (36.7 ??C) Heart Rate: [67-81] 67 Resp: [16-18] 16 BP: (134-164)/(63-99) 142/85 FiO2: [21 %] 21 % Intake/Output Summary (Last 24 hours) at 07/01/2019 1301 Last data filed at 07/01/2019 0758 Gross per 24 hour Intake 420 ml Output -- Net 420 ml GEN: Well appearing male in no acute distress HEENT: Normocephalic, atraumatic, PERRLA, EOMI, no scleral icterus. Dry MM. NECK: Supple with normal ROM. LUNGS: Clear breath sounds to auscultation. No use of accessory muscles. CV: Regular S1/S2, no murmurs. ABD: Normal bowel sounds. Soft, non tender, non distended. No rebound or guarding. LYMPHATIC: No cervical, axillary or inguinal adenopathy. EXTREMITIES: Positive peripheral pulses. No edema or cyanosis. SKIN: Warm and moist, no rashes. NEURO: Awake, alert and oriented x3. Non-focal motor examination. Laboratory: Reviewed Images: Reviewed Assessment/Plan: Active Problems: Hypertension Diabetes mellitus ([facility] Dx) Liver transplant recipient ([facility] Dx) Immunosuppression ([facility] Dx) [id number] kidney injury ([facility] Dx) Metabolic acidosis Leoncio Rollins is a 44 y.o. 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 Noted to have CARMEN and hyperkalemia, symptoms now resolved, Cr remains elevated, hyperkalemia improved with Kayexalate, now resolved. 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 Patient was seen and plan was discussed with attending Dr.Nadeem Diaz. Bayron Barba MD Gastroenterology and Hepatology Fellow Pager: [phone] (on weekdays after 5 pm and weekends/holidays, please page GI fellow regional recruiter) Cosigned by Micha Diaz MD at 07/01/2019 8:47 PM EST Associated attestation - Micha Diaz MD - 07/01/2019 8:47 PM EST Attending Physician's Note: I have discussed the case with Dr. Barba, agree with her note and confirm it. * Enrike Mccracken MD - 06/30/2019 8:47 AM EST Nephrology Clinic note 06/30/2019 8:43 AM Patient: Leoncio Rollins [id number] Date of Admit: 06/27/2019 LOS: 3 days Referring physician: Malinda Rhodes MD Reason for Consult CARMEN on CKD History of Present Illness Pt is a 44 yo M c PMH of KIM cirrhosis s/p OLT in 09/2017, CKD stage IV/V, and HTN, who presented with nausea, vomiting, and diarrhea. Pt had nausea and diarrhea for 2 days and went to OSH 2 days ago. Pt was found to have CARMEN with Cr 4.8 and then transferred to for further evaluation. Pt was admitted in 01/2019 for fluid overload and had 13gm of proteinuria. Kidney biopsy was offered but pt refused at that time. Cr was around mid 3s over this year. Pt denies exposure to NSAIDs. Pt states he vomited once on Monday and diarrhea has resolved. Transplant nephrology was consulted for medical management of CARMEN on CKD. Past medical, family, and social histories were reviewed as previously documented. Updates were made as necessary. Review of Systems (Focused) Significant as listed in HPI otherwise GEN: no recent fever, chills or night sweats HEENT: no changes in vision, sore throat, rhinorrhea CV: no cp, sob or orthopnea Pulm: no cough or hemoptysis GI: + nausea and vomiting. No abd pain. Diarrhea not resolved : no bowel or bladder incontinence, no dysuria MSK: no muscle or joint pain Skin: no rashes, wounds or itching Allergies: NKDA Psych: no HI/SI Past Medical History Past Medical History: Diagnosis [...] mouth daily with breakfast. 30 tablet 5 06/26/2019 at Unknown time ??? blood sugar diagnostic Strp Use to test blood sugar up to 4 times a day. Diagnosis for use: E 9.65. For use with One Touch Verio meters. 150 strip 5 06/26/2019 at Unknown time ??? blood-glucose meter (ONETOUCH VERIO SYSTEM) [facility] Use as instructed. 1 each 0 06/26/2019 at Unknown time ??? carBAMazepine (TEGRETOL) 200 mg tablet Take 200 mg by mouth at bedtime. 06/26/2019 at Unknown time ??? carvedilol (COREG) 25 MG tablet Take 2 tablets (50 mg total) by mouth 2 times a day with meals.120 tablet 06/26/2019 at Unknown time ??? doxazosin (CARDURA) 8 MG tablet 8 mg 2 times a day. 06/26/2019 at Unknown time ??? entecavir (BARACLUDE) 0.5 MG tablet Take 1 tablet (0.5 mg total) by mouth every other day. 15 tablet 06/26/2019 at Unknown time ??? ergocalciferol (VITAMIN D2) 50,000 unit capsule Take 50,000 Units by mouth once a week. Past Week at Unknown time ??? famotidine (PEPCID) 20 MG tablet Take 20 mg by mouth daily. 06/26/2019 at Unknown time ??? fluticasone propionate (FLONASE) 50 mcg/actuation nasal spray use 2 spray(s) in each nostril daily 11 Past Month at Unknown time ??? gabapentin (NEURONTIN) 100 MG capsule Take 2 capsules (200 mg total) by mouth 3 times a day. (Patient taking differently: Take 800 mg by mouth 2 times a day. ) 180 capsule 0 06/26/2019 at Unknown time ??? insulin NPH isoph U-100 human (HUMULIN N NPH INSULIN KWIKPEN) 100 unit/mL (3 mL) InPn Inject subcutaneously 15 units in the AM and 15 units in the PM. 15 mL 5 06/26/2019 at Unknown time ??? lancets (ONETOUCH DELICA LANCETS) 33 gauge Misc Use 1 strip as directed 4 times daily before meals and at bedtime. 150 each 5 06/26/2019 at Unknown time ??? mycophenolate (CELLCEPT) 250 mg capsule Take 3 capsules (750 mg total) by mouth 2 times a day. 180 capsule 5 06/26/2019 at Unknown time ??? NIFEdipine (PROCARDIA-XL) 90 MG (OSM) 24 hr tablet Take 90 mg by mouth 2 times a day. 06/26/2019 at Unknown time ??? ondansetron (ZOFRAN-ODT) 4 MG disintegrating tablet every 8 hours as needed. Past Week at Unknown time ??? pen needle, diabetic 32 gauge x 5/32 Ndle Use as directed to inject insulin 4 times daily. 150each 5 06/26/2019 at Unknown time ??? pen needle, diabetic 32 gauge x 5/32 Ndle For use with insulin pen. Use as instructed. 150 each 5 06/26/2019 at Unknown time ??? polyethylene glycol (MIRALAX) 17 gram packet Take 17 g by mouth 2 times a day as needed. 100 packet 0 06/26/2019 at Unknown time ??? tacrolimus ER, 24 HR, (ENVARSUS XR) 1 mg Tb24 Take 2 tablets (2 mg total) by mouth daily. 60 tablet 5 06/26/2019 at Unknown time ??? torsemide (DEMADEX) 20 MG tablet Take 1 tablet (20 mg total) by mouth daily. 30 tablet 5 Past Week at Unknown time ??? cloNIDine HCl (CATAPRES) 0.1 MG tablet Take 1 tablet (0.1 mg total) by mouth if needed. (Patient taking differently: Take 0.1 mg by mouth 2 times a day. ) 60 tablet 0 Taking ??? insulin glulisine U-100 (APIDRA U-100 INSULIN) 100 unit/mL injection Inject 5 Units subcutaneously 3 times a day with meals. 10 mL 0 Taking Scheduled Meds: ??? aspirin 81 mg Oral Daily with breakfast ??? capsaicin Topical BID ??? carBAMazepine 200 mg Oral Nightly (2099) ??? carvedilol 50 mg Oral BID WC ??? cloNIDine HCl 0.1 mg Oral BID ??? entecavir 0.5 mg Oral Every Other Day ??? famotidine 20 mg Oral Daily 0900 ??? gabapentin 400 mg Oral BID ??? heparin 5,000 Units Subcutaneous 3 times per day ??? insulin lispro 0-5 Units Subcutaneous TID AC ??? insulin NPH 24 Units Subcutaneous QAM ??? insulin NPH 8 Units Subcutaneous Nightly (2099) ??? mycophenolate 750 mg Oral BID ??? NIFEdipine 90 mg Oral BID ??? polyethylene glycol 17 g Oral BID ??? sodium bicarbonate 1,300 mg Oral BID ??? sodium chloride 10 mL Intravenous QS ??? tacrolimus ER (24 HR) 2 mg Oral DAILY 0700 ??? terazosin 10 mg Oral BID Continuous Infusions: PRN medications: acetaminophen, dextrose 10% in water OR dextrose 10% in water, glucose, loperamide, methocarbamol, ondansetron OR ondansetron Allergies: Allergies Allergen Reactions ??? Codeine Sulfate Hyper ??? Codeine Other (See Comments) Becomes hyper Vital Signs Temp: [97.7 ??F (36.5 ??C)-98.4 ??F (36.9 ??C)] 98.2 ??F (36.8 ??C) Heart Rate: [70-77] 73 Resp: [17-18] 18 BP: (143-174)/(64-89) 144/65 FiO2: [21 %] 21 % Patient Vitals for the past 4 hrs: BP Temp Temp src Pulse Resp SpO2 06/30/19 0803 144/65 98.2 ??F (36.8 ??C) Oral 73 18 91 % Wt Readings from Last 3 Encounters: 06/29/19 (!) 291 lb 6.4 oz (132.2 kg) 02/28/19 (!) 282 lb (127.9 kg) 02/12/19 (!) 282 lb (127.9 kg) Admit Wt: Weight: (!) 285 lb (129.3 kg) Todays Wt: Weight: (!) 291 lb 6.4 oz (132.2 kg) Estimated body mass index is 45.64 kg/m?? as calculated from the following: Height as of this encounter: 5' 7 (1.702 m). Weight as of this encounter: 291 lb 6.4 oz (132.2 kg). Date 06/29/19 07 - 06/30/19 0659 06/30/19 07 - 07/01/19 0659 Shift [id number] 2815-6009 9772-8959 24 Hour Total 0393-9452 1565-4516 5176-3035 24 Hour Total INTAKE P.O. 240 240 120 120 P.O. 240 240 120 120 I.V.(mL/kg) 1661(12.6) 1661(12.6) I.V. 1661 1661 Shift Total(mL/kg) 1901(14.4) 1901(14.4) 120(0.9) 120(0.9) OUTPUT Urine(mL/kg/hr) Urine Occurrence 1 x 1 x Emesis/NG output Emesis Occurrence 0 x 0 x Stool Stool Occurrence 1 x 1 x Shift Total(mL/kg) Weight (kg) 132.2 132.2 132.2 132.2 132.2 132.2 132.2 132.2 Intake/Output Summary (Last 24 hours) at 06/30/2019 0843 Last data filed at 06/30/2019 0804 Gross per 24 hour Intake 2021 ml Output -- Net 2021 ml I/O last 3 completed shifts: In: 3289.8 [P.O.:480; I.V.:2809.8] Out: 0 RESPIRATORY Ventilator Setting: No data found. Fi02 Requirement: Patient Vitals for the past 1 hrs: O2 Device 06/30/19 0803 None (Room air) Last ABG: Lab Results Component Value Date PCO2 34 (L) 10/09/2017 [id number] 97.6 10/09/2017 Physical Exam General appearance: in NAD Head: Normocephalic, without obvious abnormality, atraumatic Mouth: no oral ulcers or thrush Neck: No JVD, trachea midline Lungs: clear to auscultation bilaterally and no respiratory distress Heart: regular rate and rhythm, no murmurs Abdomen: soft, non-tender non-distended Extremities: no leg edema Skin: No rashes/lesions noted, no skin tears Psych: good eye contact, normal affect Laboratory Data Recent Labs 06/28/19 0427 06/29/19 0544 06/30/19 0406 WBC 2.3* 2.2* 2.4* HGB 7.1* 6.8* 7.6* HCT 21.8* 21.0* 22.6* MCV 85.1 85.3 83.3 PLT 176 152 150 Recent Labs 06/28/19 0427 06/29/19 0544 06/30/19 0406 NA 140 141 141 K 5.5* 4.8 4.9 CL 113* 112* 110 CO2 20* 19* 21 BUN 44* 40* 38* CREATININE 4.59* 4.75* 4.54* GLUCOSE 164* 86 100 CALCIUM 7.6* 7.1* 7.2* MG 1.8 -- -- PHOS 4.0 4.1 4.3 ANIONGAP 7 10 10 No results for input(s): INR, PROTIME, PTT in the last 72 hours. FSBS Range: Recent Labs 06/28/19 0304 06/28/19 0404 06/28/19 0458 06/28/19 0604 06/28/19 1233 06/28/19 1815 06/28/19 2319 06/29/19 0958 06/29/19 1335 06/29/19 1752 POCGMD 204* 198* 166* 140* 150* 107* 117* 101* 213* 134* Recent Labs 06/27/19 2108 06/29/19 0544 ALT 10 11 AST 10* 12* ALKPHOS 117 113 BILITOT 0.2 0.2 Cardiac Labs: No results for input(s): CKTOTAL, CKMB, CKMBINDEX, TROPONINI, BNP, NTPROBNP in the last 72 hours. No results for input(s): CHOLTOT, TRIG, HDL, CHOLHDL, LDL in the last 72 hours. Invalid input(s): VLDCHOL Lab Results Component Value Date HGBA1C 7.2 (A) 05/15/2019 HGBA1C 7.4 (H) 12/13/2018 HGBA1C 5.3 01/02/2018 Nephro Labs: Recent Labs 06/28/19 1047 COLORU Yellow CLARITYU Clear PROTEINUA >=500* PHUR 5.0 LABSPEC 1.015 GLUCOSEU 150* BLOODU Small* LEUKOCYTESUR Negative NITRITE Negative BILIRUBINUR Negative UROBILINOGEN <2.0 RBCUA <1 WBCUA 2 BACTERIA Rare* Recent Labs 06/28/19 1047 NAUR 74 KUR 33.0 CLUR 77 No results found for: MICROALBUR, [id number] Lab Results Component Value Date PTH 164.0 (H) 01/14/2019 CALCIUM 7.2 (L) 06/30/2019 PHOS 4.3 06/30/2019 Lab Results Component Value Date [id number] 15.8 (L) 01/14/2019 Anemia Labs: Lab Results Component Value Date IRON 51 05/15/2019 TIBC 266 05/15/2019 FERRITIN 225 05/15/2019 Lab Results Component Value Date [id number] 525 05/15/2019 Sepsis Marker Labs: Recent Labs 06/27/19 2108 LACTATE 0.5 Lab Results Component Value Date FIBRINOGEN 192 (L) 10/08/2017 No results for input(s): TEGANGLE, TEGKTIME, [id number], TEGMAXAMPL, TEGRTIME, CBMZ in the last 72 hours. No results for input(s): ESR, CRP in the last 72 hours. No results found for: ESR, CRP Infectious Labs Urine cx: Lab Results Component Value Date COLORU Yellow 06/28/2019 CLARITYU Clear 06/28/2019 PROTEINUA >=500 (A) 06/28/2019 PHUR 5.0 06/28/2019 LABSPEC 1.015 06/28/2019 GLUCOSEU 150 (A) 06/28/2019 BLOODU Small (A) 06/28/2019 LEUKOCYTESUR Negative 06/28/2019 NITRITE Negative 06/28/2019 BILIRUBINUR Negative 06/28/2019 UROBILINOGEN <2.0 06/28/2019 RBCUA <1 06/28/2019 WBCUA 2 06/28/2019 BACTERIA Rare (A) 06/28/2019 Blood cx: Lab Results Component Value Date [...] found for: HIV1X2 No results found for: [id number] No results found for: VDRLCSF Lab Results Component Value Date HEPAIGM Nonreactive 08/21/2017 HEPBCAB Nonreactive 12/13/2018 No results found for: [id number] No results found for: [id number] In addition to the above an extensive amount of complex data in the patients lab and chart were reviewed. Diagnostic Studies US Retroperitoneal complete Final Result IMPRESSION: Normal renal ultrasound. Approved by Jimmy Velasquez MD on 06/28/2019 3:29 PM EST I have personally reviewed the images and I agree with this report. Report Verified by: Lion Mike MD at 06/28/2019 4:36 PM EST Assessment & Plan CARMEN on CKD Cr ~3.9 since 03/2019 Cr 4.60->4.59 Non-oliguric Known to have nephrotic range proteinuria - serologies negative except TERESA 1:160 and faint monoclonal band on SPEP on 02/28/19 Etiology of CKD and proteinuria unclear - diabetic nephropathy is possible despite A1c is not very high in the setting of CNI exposure Tacrolimus level <2.0, pt states he was not given any tacro at OSH Cr today 4.54 Immunosuppression: Current regimen - Cellcept 750 BID and Envarsus 2mg daily - Defer to liver team Vomiting and diarrhea: Now resolved Please check C diff, GI panel, and CMV PCR Acid/base electrolytes: Bicarb 21, gap normal, K 4.9 Volume/BP: Resumed home meds Heme: Hb 7.6 post transfusion. No concerns for hemolysis Continue to monitor Lab Results Component Value Date WBC 2.4 (L) 06/30/2019 RBC 2.72 (L) 06/30/2019 HGB 7.6 (L) 06/30/2019 HCT 22.6 (L) 06/30/2019 MCV 83.3 06/30/2019 MCH 27.8 06/30/2019 MCHC 33.4 06/30/2019 RDW 14.6 06/30/2019 PLT 150 06/30/2019 Hapto/LDH normal - Check CMV PCR and iron panel PLAN: Monitor renal panel IS per helatology team. If pt is dc home then will be followed by the nephrology outpt team. Have already updated the nephrology team. Signed: Enrike Mccracken MD 8:43 AM Plan d/w with Tx attending. Cosigned by Rajwinder Polanco at 06/30/2019 7:45 PM EST Associated attestation - Rajwinder Polanco - 06/30/2019 7:45 PM EST I saw and evaluated the patient, and discussed with the resident. I agree with the resident???s findings and plan as documented in the resident???s note. * Malinda Rhodes MD - 06/30/2019 7:18 AM EST Hospital Medicine Attending Daily Progress Note Chief Complaint / Reason for Follow-Up Leoncio Rollins is a 44 y.o. male on hospital day 3. The principal reason for today's follow up visit is Hyperkalemia. Interval History No significant events overnight or change in clinical status. Patient denies new complaints. Feels well. Output not recorded but he states he's been urinating without issue. Review of Systems (focused) No chest pain. No shortness of breath. No abdominal pain, nausea or emesis. Medications Scheduled Meds: ??? aspirin 81 mg Oral Daily with breakfast ??? capsaicin Topical BID ??? carBAMazepine 200 mg Oral Nightly (2099) ??? carvedilol 50 mg Oral BID WC ??? cloNIDine HCl 0.1 mg Oral BID ??? entecavir 0.5 mg Oral Every Other Day ??? famotidine 20 mg Oral Daily 0900 ??? gabapentin 400 mg Oral BID ??? heparin 5,000 Units Subcutaneous 3 times per day ??? insulin lispro 0-5 Units Subcutaneous TID AC ??? insulin NPH 24 Units Subcutaneous QAM ??? insulin NPH 8 Units Subcutaneous Nightly (2100) ??? mycophenolate 750 mg Oral BID ??? NIFEdipine 90 mg Oral BID ??? polyethylene glycol 17 g Oral BID ??? sodium bicarbonate 1,300 mg Oral BID ??? sodium chloride 10 mL Intravenous QS ??? tacrolimus ER (24 HR) 2 mg Oral DAILY 0700 ??? terazosin 10 mg Oral BID Continuous Infusions: PRN Meds:acetaminophen, dextrose 10% in water OR dextrose 10% in water, glucose, loperamide, methocarbamol, ondansetron OR ondansetron Vital Signs Temp: [97.7 ??F (36.5 ??C)-98.4 ??F (36.9 ??C)] 98.2 ??F (36.8 ??C) Heart Rate: [70-77] 73 Resp: [17-18] 18 BP: (143-174)/(64-89) 144/65 FiO2: [21 %] 21 % Intake/Output Summary (Last 24 hours) at 06/30/2019 0953 Last data filed at 06/30/2019 0804 Gross per 24 hour Intake 2020 ml Output -- Net 2020 ml Physical Exam Gen - alert, no distress Eyes - normal conjunctiva, normal pupils ENT - moist mucosa, no OP erythema or exudates Neck - supple CV - RRR, no edema Lung - CTA, normal WOB Abd - +BS, soft nt, obese MSK - no clubbing, no cyanosis, no joint swelling, no muscle tenderness Skin - normal temp, no rashes Neuro - alert, oriented to self/place/time/situation, no facial assymmetry, no gross focal weakness, sensation grossly intact to light touch Psych - normal mood, normal behavior Laboratory Data Lab 06/30/19 0406 06/29/19 0544 06/28/[id number] WBC 2.4* 2.2* 2.3* 2.4* HEMOGLOBIN 7.6* 6.8* 7.1* 7.2* HEMATOCRIT 22.6* 21.0* 21.8* 22.6* MEAN CORPUSCULAR VOLUME 83.3 85.3 85.1 86.4 PLATELETS 150 152 176 189 Lab 06/30/19 0406 06/29/19 0544 06/28/[id number] SODIUM 141 141 140 140 POTASSIUM 4.9 4.8 5.5* 6.0* CHLORIDE 110 112* 113* 114* CO2 21 19* 20* 20* BUN 38* 40* 44* 45* CREATININE 4.54* 4.75* 4.59* 4.60* GLUCOSE 100 86 164* 205* Lab 06/30/19 0406 06/29/19 0544 06/28/197 06/27/192107 CALCIUM 7.2* 7.1* 7.6* 7.9* MAGNESIUM -- -- 1.8 -- PHOSPHORUS 4.3 4.1 4.0 4.1 Lab 06/30/1940506/29/1954306/28/1942606/27/192107 ALT -- 11 -- 10 AST -- 12* -- 10* ALK PHOS -- 113 -- 117 BILIRUBIN TOTAL -- 0.2 -- 0.2 BILIRUBIN DIRECT -- 0.04 -- 0.04 ALBUMIN 3.2* 3.2* 3.2* 3.3* 3.3* 3.3* Diagnostic Studies No new imaging in last 24 hours. Assessment & Plan Leoncio Rollins is a 44 y.o. male on hospital day 3. The medical issues being addressed in today's encounter are as follows: Principal Problem: Hyperkalemia Active Problems: Hypertension Diabetes mellitus ([facility] Dx) Liver transplant recipient ([facility] Dx) Immunosuppression ([facility] Dx) Ulbjj-sv-[id number] kidney injury ([facility] Dx) Metabolic acidosis Diarrhea in adult patient #Acute kidney injury on CKD. Sounds hypovolemic in the setting of GI losses. S/p IV hydration, minimal improvement since yesterday, but no considerable improvement since admission. Appreciate renal recs Avoid nephrotoxins Renally dose meds SPEP and CMV serum in process Will defer to Nephrology and Hepatology on discharge timeline - will rediscuss tomorrow pending AM labs and no events. ?? #Hyperkalemia. Due to above. Resolved. ?? #Nongap metabolic acidosis. Due to renal disease. We have changed IV bicarb to PO bicarb per Nephrology recommendations, stable. ?? #Normocytic anemia. Monitor. <7 as of yesterday. Not JOSE ALFREDO by iron studies. Patient received 1 unit PRBCs yesterday. Hgb at 7.6 today. Will continue to monitor. Hemolysis labs negative. Lab Results Component Value Date IRON 51 05/15/2019 TIBC 266 05/15/2019 FERRITIN 225 05/15/2019 ?? #S/p OLT. LFTs stable. Continue IS. Appreciate hepatology consultation, continue tacro and MMF at current doses. tacro level <2.0. Recheck in AM then discuss with hepatology. ?? #T2DM. Decrease insulin given low normal BGs and CARMEN and poor insulin clearance. May need further adjustments. I decreased his morning NPH to 20 from 24 units (received the 24 units this AM) and we'll see how his daytime sugars run. Lab Results Component Value Date HGBA1C 7.2 (A) 05/15/2019 ?? #Diarrhea. Negative cdif, GI pathogen panel, and negative fecal leuks. Doesn't sound infectious. Take out of contact precautions. Imodium PRN. Has resolved. ?? #HTN. Stable. Continue home meds. ?? #Muscle spasms. Trial robaxin. Did not complain of today. ?? dispo - pending improvement in renal function Diet: Diet Orders Dietary nutrition supplements starting at 06/29 1008 Diet renal consistent carbohydrates 1900 - 2100 kcal starting at 06/28 0822 Code Status: Full Code Malinda Rhodes MD Attending Physician Department of Internal Medicine Pager [phone] 9:53 AM, 06/30/2019 - * Enrike Mccracken MD - 06/29/2019 1:05 PM EST Nephrology Clinic note 06/29/2019 12:58 PM Patient: Leoncio Rollins [id number] Date of Admit: 06/27/2019 LOS: 2 days Referring physician: Robin Roberts MD Reason for Consult CARMEN on CKD History of Present Illness Pt is a 44 yo M c PMH of KIM cirrhosis s/p OLT in 09/2017, CKD stage IV/V, and HTN, who presented with nausea, vomiting, and diarrhea. Pt had nausea and diarrhea for 2 days and went to OSH 2 days ago. Pt was found to have CARMEN with Cr 4.8 and then transferred to for further evaluation. Pt was admitted in 01/2019 for fluid overload and had 13gm of proteinuria. Kidney biopsy was offered but pt refused at that time. Cr was around mid 3s over this year. Pt denies exposure to NSAIDs. Pt states he vomited once on Monday and diarrhea has resolved. Transplant nephrology was consulted for medical management of CARMEN on CKD. Past medical, family, and social histories were reviewed as previously documented. Updates were made as necessary. Review of Systems (Focused) Significant as listed in HPI otherwise GEN: no recent fever, chills or night sweats HEENT: no changes in vision, sore throat, rhinorrhea CV: no cp, sob or orthopnea Pulm: no cough or hemoptysis GI: + nausea and vomiting. No abd pain. Diarrhea not resolved : no bowel or bladder incontinence, no dysuria MSK: no muscle or joint pain Skin: no rashes, wounds or itching Allergies: NKDA Psych: no HI/SI Past Medical History Past Medical History: Diagnosis [...] mouth daily with breakfast. 30 tablet 5 06/26/2019 at Unknown time ??? blood sugar diagnostic Strp Use to test blood sugar up to 4 times a day. Diagnosis for use: E 9.65. For use with One Touch Verio meters. 150 strip 5 06/26/2019 at Unknown time ??? blood-glucose meter ([employer] VERIO SYSTEM) [facility] Use as instructed. 1 each 0 06/26/2019 at Unknown time ??? carBAMazepine (TEGRETOL) 200 mg tablet Take 200 mg by mouth at bedtime. 06/26/2019 at Unknown time ??? carvedilol (COREG) 25 MG tablet Take 2 tablets (50 mg total) by mouth 2 times a day with meals.120 tablet 5 06/26/2019 at Unknown time ??? doxazosin (CARDURA) 8 MG tablet 8 mg 2 times a day. 06/26/2019 at Unknown time ??? entecavir (BARACLUDE) 0.5 MG tablet Take 1 tablet (0.5 mg total) by mouth every other day. 15 tablet 11 06/26/2019 at Unknown time ??? ergocalciferol (VITAMIN D2) 50,000 unit capsule Take 50,000 Units by mouth once a week. Past Week at Unknown time ??? famotidine (PEPCID) 20 MG tablet Take 20 mg by mouth daily. 06/26/2019 at Unknown time ??? fluticasone propionate (FLONASE) 50 mcg/actuation nasal spray use 2 spray(s) in each nostril daily 11 Past Month at Unknown time ??? gabapentin (NEURONTIN) 100 MG capsule Take 2 capsules (200 mg total) by mouth 3 times a day. (Patient taking differently: Take 800 mg by mouth 2 times a day. ) 180 capsule 0 06/26/2019 at Unknown time ??? insulin NPH isoph U-100 human (HUMULIN N NPH INSULIN KWIKPEN) 100 unit/mL (3 mL) InPn Inject subcutaneously 15 units in the AM and 15 units in the PM. 15 mL 5 06/26/2019 at Unknown time ??? lancets (ONETOUCH DELICA LANCETS) 33 gauge Misc Use 1 strip as directed 4 times daily before meals and at bedtime. 150 each 5 06/26/2019 at Unknown time ??? mycophenolate (CELLCEPT) 250 mg capsule Take 3 capsules (750 mg total) by mouth 2 times a day. 180 capsule 5 06/26/2019 at Unknown time ??? NIFEdipine (PROCARDIA-XL) 90 MG (OSM) 24 hr tablet Take 90 mg by mouth 2 times a day. 06/26/2019 at Unknown time ??? ondansetron (ZOFRAN-ODT) 4 MG disintegrating tablet every 8 hours as needed. Past Week at Unknown time ??? pen needle, diabetic 32 gauge x 5/32 Ndle Use as directed to inject insulin 4 times daily. 150each 5 06/26/2019 at Unknown time ??? pen needle, diabetic 32 gauge x 5/32 Ndle For use with insulin pen. Use as instructed. 150 each 5 06/26/2019 at Unknown time ??? polyethylene glycol (MIRALAX) 17 gram packet Take 17 g by mouth 2 times a day as needed. 100 packet 0 06/26/2019 at Unknown time ??? tacrolimus ER, 24 HR, (ENVARSUS XR) 1 mg Tb24 Take 2 tablets (2 mg total) by mouth daily. 60 tablet 5 06/26/2019 at Unknown time ??? torsemide (DEMADEX) 20 MG tablet Take 1 tablet (20 mg total) by mouth daily. 30 tablet 5 Past Week at Unknown time ??? cloNIDine HCl (CATAPRES) 0.1 MG tablet Take 1 tablet (0.1 mg total) by mouth if needed. (Patient taking differently: Take 0.1 mg by mouth 2 times a day. ) 60 tablet 0 Taking ??? insulin glulisine U-100 (APIDRA U-100 INSULIN) 100 unit/mL injection Inject 5 Units subcutaneously 3 times a day with meals. 10 mL 0 Taking Scheduled Meds: ??? aspirin 81 mg Oral Daily with breakfast ??? capsaicin Topical BID ??? carBAMazepine 200 mg Oral Nightly (2100) ??? carvedilol 50 mg Oral BID WC ??? cloNIDine HCl 0.1 mg Oral BID ??? entecavir 0.5 mg Oral Every Other Day ??? famotidine 20 mg Oral Daily 0900 ??? gabapentin 400 mg Oral BID ??? heparin 5,000 Units Subcutaneous 3 times per day ??? insulin lispro 0-5 Units Subcutaneous TID AC ??? [START ON 06/30/2019] insulin NPH 24 Units Subcutaneous QAM ??? insulin NPH 8 Units Subcutaneous Nightly (2100) ??? mycophenolate 750 mg Oral BID ??? NIFEdipine 90 mg Oral BID ??? polyethylene glycol 17 g Oral BID ??? sodium bicarbonate 1,300 mg Oral BID ??? sodium chloride 10 mL Intravenous QS ??? tacrolimus ER (24 HR) 2 mg Oral DAILY 0700 ??? terazosin 10 mg Oral BID Continuous Infusions: PRN medications: acetaminophen, dextrose 10% in water OR dextrose 10% in water, glucose, loperamide, methocarbamol, ondansetron OR ondansetron Allergies: Allergies Allergen Reactions ??? Codeine Sulfate Hyper ??? Codeine Other (See Comments) Becomes hyper Vital Signs Temp: [97.9 ??F (36.6 ??C)-98.7 ??F (37.1 ??C)] 98 ??F (36.7 ??C) Heart Rate: [71-86] 72 Resp: [17-18] 18 BP: (138-180)/(64-81) 143/64 FiO2: [21 %] 21 % Patient Vitals for the past 4 hrs: BP Temp Temp src Pulse Resp SpO2 06/29/19 1225 143/64 98 ??F (36.7 ??C) Oral 72 18 96 % Wt Readings from Last 3 Encounters: 06/29/19 (!) 291 lb 6.4 oz (132.2 kg) 02/28/19 (!) 282 lb (127.9 kg) 02/12/19 (!) 282 lb (127.9 kg) Admit Wt: Weight: (!) 285 lb (129.3 kg) Todays Wt: Weight: (!) 291 lb 6.4 oz (132.2 kg) Estimated body mass index is 45.64 kg/m?? as calculated from the following: Height as of this encounter: 5' 7 (1.702 m). Weight as of this encounter: 291 lb 6.4 oz (132.2 kg). Date 06/28/19699 - 06/29/1965806/29/19 07 - 06/30/19 0659 Shift 6042-7196 3551-5689 9314-3852 24 Hour Total 9306-1752 3389-1589 9617-8213 24 Hour Total INTAKE P.O. 240 240 0 480 240 240 P.O. 240 240 0 480 240 240 I.V.(mL/kg) 10(0.1) 1148.8(8.7) 1158.8(8.8) 1661(12.6) 1661(12.6) I.V. 1661 1661 Saline Flush (mL) 10 10 20 Volume (mL) (sodium bicarbonate 75 mEq in sodium chloride 0.45 % 1,000 mL IV infusion) 1138.8 1138.8 Shift Total(mL/kg) 250(1.9) 240(1.9) 1148.8(8.7) 1638.8(12.4) 1901(14.4) 1901(14.4) OUTPUT Urine(mL/kg/hr) 500(0.5) 0(0) 500(0.2) Urine 500 0 500 Urine Occurrence 1 x 2 x 1 x 4 x Emesis/NG output 0 0 0 Emesis 0 0 0 Emesis Occurrence 0 x 0 x 0 x 0 x Stool 0 0 0 Stool Occurrence 1 x 3 x 0 x 4 x Stool 0 0 0 Shift Total(mL/kg) 500(3.9) 0(0) 500(3.8) Weight (kg) 129.3 129.3 132.2 132.2 132.2 132.2 132.2 132.2 Intake/Output Summary (Last 24 hours) at 06/29/2019 1258 Last data filed at 06/29/2019 1105 Gross per 24 hour Intake 3289.75 ml Output 500 ml Net 2789.75 ml I/O last 3 completed shifts: In: 2578.8 [P.O.:720; I.V.:1858.8] Out: 500 [Urine:500] RESPIRATORY Ventilator Setting: No data found. Fi02 Requirement: Patient Vitals for the past 1 hrs: O2 Device 06/29/19 1225 None (Room air) Last ABG: Lab Results Component Value Date PCO2 34 (L) 10/09/2017 [id number] 97.6 10/09/2017 Physical Exam General appearance: in NAD Head: Normocephalic, without obvious abnormality, atraumatic Mouth: no oral ulcers or thrush Neck: No JVD, trachea midline Lungs: clear to auscultation bilaterally and no respiratory distress Heart: regular rate and rhythm, no murmurs Abdomen: soft, non-tender non-distended Extremities: no leg edema Skin: No rashes/lesions noted, no skin tears Psych: good eye contact, normal affect Laboratory Data Recent Labs 06/27/19210706/28/1942606/29/19 0544 WBC 2.4* 2.3* 2.2* HGB 7.2* 7.1* 6.8* HCT 22.6* 21.8* 21.0* MCV 86.4 85.1 85.3 PLT 189 176 152 Recent Labs 06/27/19210706/28/1942606/29/19 0544 NA 140 140 141 K 6.0* 5.5* 4.8 CL 114* 113* 112* CO2 20* 20* 19* BUN 45* 44* 40* CREATININE 4.60* 4.59* 4.75* GLUCOSE 205* 164* 86 CALCIUM 7.9* 7.6* 7.1* MG -- 1.8 -- PHOS 4.1 4.0 4.1 ANIONGAP 6 7 10 No results for input(s): INR, PROTIME, PTT in the last 72 hours. FSBS Range: Recent Labs 06/28/19 0034 06/28/19 0143 06/28/19 0304 06/28/19 0404 06/28/19 0458 06/28/19 0604 06/28/19 1233 06/28/19 1815 06/28/19 2319 06/29/19 0958 POCGMD 184* 198* 204* 198* 166* 140* 150* 107* 117* 101* Recent Labs 06/27/19210706/29/19 0544 ALT 10 11 AST 10* 12* ALKPHOS 117 113 BILITOT 0.2 0.2 Cardiac Labs: No results for input(s): CKTOTAL, CKMB, CKMBINDEX, TROPONINI, BNP, NTPROBNP in the last 72 hours. No results for input(s): CHOLTOT, TRIG, HDL, CHOLHDL, LDL in the last 72 hours. Invalid input(s): VLDCHOL Lab Results Component Value Date HGBA1C 7.2 (A) 05/15/2019 HGBA1C 7.4 (H) 12/13/2018 HGBA1C 5.3 01/02/2018 Nephro Labs: Recent Labs 06/28/19 1047 COLORU Yellow CLARITYU Clear PROTEINUA >=500* PHUR 5.0 LABSPEC 1.015 GLUCOSEU 150* BLOODU Small* LEUKOCYTESUR Negative NITRITE Negative BILIRUBINUR Negative UROBILINOGEN <2.0 RBCUA <1 WBCUA 2 BACTERIA Rare* Recent Labs 06/28/19 1047 NAUR 74 KUR 33.0 CLUR 77 No results found for: MICROALBUR, [id number] Lab Results Component Value Date PTH 164.0 (H) 01/14/2019 CALCIUM 7.1 (L) 06/29/2019 PHOS 4.1 06/29/2019 Lab Results Component Value Date [id number] 15.8 (L) 01/14/2019 Anemia Labs: Lab Results Component Value Date IRON 51 05/15/2019 TIBC 266 05/15/2019 FERRITIN 225 05/15/2019 Lab Results Component Value Date [id number] 525 05/15/2019 Sepsis Marker Labs: Recent Labs 06/27/19 2108 LACTATE 0.5 Lab Results Component Value Date FIBRINOGEN 192 (L) 10/08/2017 No results for input(s): TEGANGLE, TEGKTIME, PGNVDBAX02, TEGMAXAMPL, TEGRTIME, CBMZ in the last 72 hours. No results for input(s): ESR, CRP in the last 72 hours. No results found for: ESR, CRP Infectious Labs Urine cx: Lab Results Component Value Date COLORU Yellow 06/28/2019 CLARITYU Clear 06/28/2019 PROTEINUA >=500 (A) 06/28/2019 PHUR 5.0 06/28/2019 LABSPEC 1.015 06/28/2019 GLUCOSEU 150 (A) 06/28/2019 BLOODU Small (A) 06/28/2019 LEUKOCYTESUR Negative 06/28/2019 NITRITE Negative 06/28/2019 BILIRUBINUR Negative 06/28/2019 UROBILINOGEN <2.0 06/28/2019 RBCUA <1 06/28/2019 WBCUA 2 06/28/2019 BACTERIA Rare (A) 06/28/2019 Blood cx: Lab Results Component Value Date [...] found for: HIV1X2 No results found for: [id number] No results found for: VDRLCSF Lab Results Component Value Date HEPAIGM Nonreactive 08/21/2017 HEPBCAB Nonreactive 12/13/2018 No results found for: [id number] No results found for: [id number] In addition to the above an extensive amount of complex data in the patients lab and chart were reviewed. Diagnostic Studies US Retroperitoneal complete Final Result IMPRESSION: Normal renal ultrasound. Approved by Jimmy Velasquez MD on 06/28/2019 3:29 PM EST I have personally reviewed the images and I agree with this report. Report Verified by: Lion Mike MD at 06/28/2019 4:36 PM EST Assessment & Plan CARMEN on CKD Cr ~3.9 since 03/2019 Cr 4.60->4.59 Non-oliguric Known to have nephrotic range proteinuria - serologies negative except TERESA 1:160 and faint monoclonal band on SPEP on 02/28/19 Etiology of CKD and proteinuria unclear - diabetic nephropathy is possible despite A1c is not very high in the setting of CNI exposure Tacrolimus level <2.0, pt states he was not given any tacro at OSH Cr today 4.7 Immunosuppression: Current regimen - Cellcept 750 BID and Envarsus 2mg daily - Defer to liver team Vomiting and diarrhea: Now resolved Please check C diff, GI panel, and CMV PCR Acid/base electrolytes: Bicarb 19, gap normal, K 4.8 Volume/BP: Resumed home meds Heme: Lab Results Component Value Date WBC 2.2 (L) 06/29/2019 RBC 2.46 (L) 06/29/2019 HGB 6.8 (L) 06/29/2019 HCT 21.0 (L) 06/29/2019 MCV 85.3 06/29/2019 MCH 27.5 06/29/2019 MCHC 32.2 06/29/2019 RDW 13.9 06/29/2019 PLT 152 06/29/2019 Hapto/LDH normal - Check CMV PCR and iron panel PLAN: Stop IV fluids. Anemia work up , LDH , retic count , haptoglobin , peripheral blood smear, iron studies. Stop IV bicarbonate. Start PO bicarbonate 1300 mg BID. Continue to monitor renal panel Signed: Enrike Mccracken MD 12:58 PM Plan d/w with Tx attending. Plan d/w primary team attending. Cosigned by Rajwinder Polanco at 06/29/2019 11:54 PM EST Associated attestation - Rajwinder Polanco - 06/29/2019 11:54 PM EST I saw and evaluated the patient, and discussed with the resident. I agree with the resident???s findings and plan as documented in the resident???s note. * Robin Roberts MD - 06/29/2019 10:26 AM EST Hospital Medicine Attending Daily Progress Note Chief Complaint / Reason for Follow-Up Leoncio Rollins is a 44 y.o. male on hospital day 2. The principal reason for today's follow up visit is Hyperkalemia. Interval History Did have an episode of watery stool yesterday which occurred after meds, he thinks its related to this. Neck spasms continue and meds didn't help, hot pack has helped Still urinating fine without issue Nausea also occurs after meds Discussed blood transfusion, rationale, and how we try to avoid in patients anticipating kidney transplant. He had a variceal hemorrhage in 2017 and received 31 units of blood products at that time Review of Systems (focused) As above in hpi Medications Scheduled Meds: ??? aspirin 81 mg Oral Daily with breakfast ??? capsaicin Topical BID ??? carBAMazepine 200 mg Oral Nightly (2099) ??? carvedilol 50 mg Oral BID WC ??? cloNIDine HCl 0.1 mg Oral BID ??? entecavir 0.5 mg Oral Every Other Day ??? famotidine 20 mg Oral Daily 0900 ??? gabapentin 400 mg Oral BID ??? heparin 5,000 Units Subcutaneous 3 times per day ??? insulin lispro 0-5 Units Subcutaneous TID AC ??? [START ON 06/30/2019] insulin NPH 24 Units Subcutaneous QAM ??? insulin NPH 8 Units Subcutaneous Nightly (2099) ??? mycophenolate 750 mg Oral BID ??? NIFEdipine 90 mg Oral BID ??? polyethylene glycol 17 g Oral BID ??? sodium chloride 10 mL Intravenous QS ??? tacrolimus ER (24 HR) 2 mg Oral DAILY 0700 ??? terazosin 10 mg Oral BID Continuous Infusions: ??? sodium bicarbonate in 1000 mL iv infusion 75 mL/hr (06/29/19 0053) PRN Meds:acetaminophen, dextrose 10% in water OR dextrose 10% in water, glucose, loperamide, methocarbamol, ondansetron OR ondansetron Vital Signs Temp: [97.9 ??F (36.6 ??C)-98.7 ??F (37.1 ??C)] 97.9 ??F (36.6 ??C) Heart Rate: [71-86] 71 Resp: [17-18] 18 BP: (138-180)/(77-81) 180/78 FiO2: [21 %] 21 % Intake/Output Summary (Last 24 hours) at 06/29/2019 1019 Last data filed at 06/29/2019 0541 Gross per 24 hour Intake 1638.75 ml Output 500 ml Net 1138.75 ml Physical Exam Gen - alert, no distress, pale Eyes - anicteric, conjugate gaze, lid and lashes normal, pale conjunctiva ENT - moist mucosa, dentition wnl Neck - supple, no stridor CV - RRR, no MRG, no edema Lung - CTA, normal WOB Abd - +BS, soft nt/nd, obese MSK - no clubbing, no cyanosis Skin - normal temp, no rashes Neuro - alert, oriented to self/place/time/situation, no facial assymmetry, no gross focal weakness Psych - normal mood, normal behavior Laboratory Data Lab 06/29/19 0544 06/28/1942606/27/19 2108 WBC 2.2* 2.3* 2.4* HEMOGLOBIN 6.8* 7.1* 7.2* HEMATOCRIT 21.0* 21.8* 22.6* MEAN CORPUSCULAR VOLUME 85.3 85.1 86.4 PLATELETS 152 176 189 Lab 06/29/19 0544 06/28/19 0427 06/27/19 210 SODIUM 141 140 140 POTASSIUM 4.8 5.5* 6.0* CHLORIDE 112* 113* 114* CO2 19* 20* 20* BUN 40* 44* 45* CREATININE 4.75* 4.59* 4.60* GLUCOSE 86 164* 205* Lab 06/29/19 0544 06/28/1942606/27/19 210 CALCIUM 7.1* 7.6* 7.9* MAGNESIUM -- 1.8 -- PHOSPHORUS 4.1 4.0 4.1 Lab 06/29/19 0544 06/28/1942606/27/19 210 ALT 11 -- 10 AST 12* -- 10* ALK PHOS 113 -- 117 BILIRUBIN TOTAL 0.2 -- 0.2 BILIRUBIN DIRECT 0.04 -- 0.04 ALBUMIN 3.2* 3.2* 3.3* 3.3* 3.3* Diagnostic Studies None new The images associated with the above reports were personally reviewed. Assessment & Plan Leoncio Rollins is a 44 y.o. male on hospital day 2. The medical issues being addressed in today's encounter are as follows: Principal Problem: Hyperkalemia Active Problems: Hypertension Diabetes mellitus ([facility] Dx) Liver transplant recipient ([facility] Dx) Immunosuppression ([facility] Dx) Pkizv-fb-azcahpg kidney injury ([facility] Dx) Metabolic acidosis Diarrhea in adult patient ?? Acute kidney injury on CKD. Sounds hypovolemic in the setting of GI losses. Not improved today despite hydration. Appreciate renal recs Avoid nephrotoxins Renally dose meds ?? Hyperkalemia. Due to above. Resolved. ?? Nongap metabolic acidosis. Due to renal disease. Continue current fluids (tried to avoid NS given hyperchloremia and LR and normosol have K in them) - on 1.5 amps bicarb in 1/2 NS to hydrate. Monitoras not improved ?? Normocytic anemia. Monitor. <7. Not JOSE ALFREDO by iron studies. Will discuss with renal transplant if should do MINERVA rather than transfusion given that he is anticipating transplant down the line, although he has been exposed to multiple blood products in the past so not sure one more unit will make a difference. Consented and will send type and screen but hold on transfusion order pending discussion with renal transplant. ?? S/p OLT. LFTs stable. Continue IS. Appreciate hepatology consultation, continue tacro and MMF at current doses. ?? T2DM. Decrease insulin given low normal BGs and CARMEN and poor insulin clearance. Diarrhea. Negative cdif, GI pathogen panel, and negative fecal leuks. Doesn't sound infectious. Take out of contact precautions. Imodium PRN. HTN. Stable. Continue home meds. Muscle spasms. Trial robaxin. dispo - pending improvement in renal function Diet: Diet Orders Dietary nutrition supplements starting at 06/29 1008 Diet renal consistent carbohydrates 1900 - 2100 kcal starting at 06/28 0822 Code Status: Full Code ROBIN ROBERTS MD Attending Physician Department of Internal Medicine Pager [phone] 10:19 AM, 06/29/2019 - * R Jas Jung MD - 06/27/2019 10:21 PM EST Short Note - Nephrology Consult [facility] - Patient: Leoncio Rollins. - Nephrology Consults was called for: CARMEN on CKD 4, Hyperkalemia - Briefly per chart review, Leoncio Rollins is a 44 y.o. male with a PMHx of CKD stge 4, KIM Cirrhosis s/p OLT 09/2017. He presented to OSH with several days of N/V/D and unable to tolerate PO or medications, thus he is transferred for further care. - Patient's chart was reviewed and briefly discussed with Attending Physician. Full consult note tofollow. - Initial Recommendations: - Restart home HTN meds. - Agree with medical management of hyperkalemia tonight. Including: kayexalate, IVF resuscitation as he reportedly appears dehydrated, IV Bicarbonate, hyperglycemia control. - Would hold Tacro (Envarsus) and check level in AM, for safety given concerns for toxicity. Miguel Jung MD Nephrology Fellow PGY-5 06/27/2019, 10:22 PM Cosigned by Rajwinder Polanco at 06/28/2019 10:44 PM EST * Jake Huertas MD - 06/27/2019 8:34 AM EST Transfer: Patient is a 44 y/o with CKD, KIM Cirrhosis s/p OLT 09/2017 who presented to [facility] with several days of N/V/D and unable to tolerate PO or medications. Follows with Liver and Nephrologyat . Baseline creatinine 3.4, increased to 4.8 on presentation, hyperkalemic to 6.1 without EKG changes, Bicarb decreased to 17, still making urine, no respiratory distress. Transferred to [facility] for[facility] evaluation of his CARMEN, discussed with nephrology, will need transplant nephrology consult upon arrival and repeat labs. Vitals: AF Stable on Room Air Initially 210/100 -> 150/70, 100-110 Labs Na 140 K 6.1 Cl 109 Bicarb 17 BUN 46 Cr 4.8 No EKG Changes Clear CXR Hgb 7.4 Jake Huertas MD documented in this encounter H&P Notes * Maru Haines MD - 06/27/2019 8:43 PM EST Department of Internal Medicine History & Physical Patient: Leoncio Rollins CSN: [id number] Chief Complaint N/V/D History of Present Illness Leoncio Rollins is a 44 y.o. male with a history of CKD, KIM Cirrhosis s/p liver transplant 09/2017 who presented to OSH following several days of nausea, vomiting and diarrhea and was found to have CARMEN, transferred here for evaluation by transplant nephrology. Per pt, he began experiencing nausea and diarrhea on the morning on 06/26. He was dry heaving and also had one episode of emesis. His grandson had a similar presentation ~1 week ago and he saw him afterward. He denies any fever, chills or abdominal pain. He has not had any blood in his diarrhea or emesis, stools are not black in color. No recent travel. 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 ROS otherwise negative. He was admitted at the start of January for an CARMEN with fluid overload 2/2 to protinuria. He declined renal biopsy at that time due to risk for bleeding. He follows with transplant nephrology at and they plan to do a kidney transplant for him within next year. He denies any changes to medications or health since last hospitalization. Review of Systems General: No fever, no fatigue, no chills, no wt loss ENT: No congestion, no sore throat, mild allergies Vision: No red eyes, no change in vision Respiratory: No cough, no shortness of breath, no wheezing Cardiac: No chest pain, no palpitations, gets swelling in abdomen, mild in legs Gastrointestinal: + vomiting, +diarrhea, +nausea, no constipation, no blood in stools Urinary: No difficulty urinating, no dysuria Psych: No difficulty sleeping, no depression, no anxiety Skin: No rash or lesion Neuro: No headaches, no numbness, no tingling Past Medical History ??? Acute pancreatitis ??? Ascites ??? Diabetes mellitus (CMS Dx) ??? Esophageal varices with bleeding (CMS Dx) ??? GERD (gastroesophageal reflux disease) ??? Hepatic encephalopathy (CMS Dx) ??? Hypertension ??? 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 Vitamin D deficiency Past Surgical History Past Surgical History: Procedure Laterality Date ??? LEFT AND RIGHT HEART CATHETERIZATION N/A [...] of Onset ??? Diabetes Sister Social History - EtOH: never - Tobacco: never - Drugs: never - Living Situation: and one son - Occupation: disabled Medications Home Meds: Medication Sig ??? aspirin 81 MG chewable tablet Chew 1 tablet (81 mg total) by mouth daily with breakfast. ??? blood sugar diagnostic Strp Use to test blood sugar up to 4 times a day. Diagnosis for use: E 9.65. For use with One Touch Verio meters. ??? blood-glucose meter ([employer] VERIO SYSTEM) Misc Use as instructed. ??? carBAMazepine (TEGRETOL) 200 mg tablet Take 200 mg by mouth at bedtime. ??? carvedilol (COREG) 25 MG tablet Take 2 tablets (50 mg total) by mouth 2 times a day with meals. ??? doxazosin (CARDURA) 8 MG tablet 8 mg 2 times a day. ??? entecavir (BARACLUDE) 0.5 MG tablet Take 1 tablet (0.5 mg total) by mouth every other day. ??? ergocalciferol (VITAMIN D2) 50,000 unit capsule Take 50,000 Units by mouth once a week. ??? famotidine (PEPCID) 20 MG tablet Take 20 mg by mouth daily. ??? fluticasone propionate (FLONASE) 50 mcg/actuation nasal spray use 2 spray(s) in each nostril daily ??? gabapentin (NEURONTIN) 100 MG capsule Take 2 capsules (200 mg total) by mouth 3 times a day. (Patient taking differently: Take 800 mg by mouth 2 times a day. Pt was taking 800 BID ??? insulin NPH isoph U-100 human (HUMULIN N NPH INSULIN KWIKPEN) 100 unit/mL (3 mL) InPn Pt takes 45 units AM and 15 PM ??? lancets ([employer] DELICA LANCETS) 33 gauge Misc Use 1 strip as directed 4 times daily before meals and at bedtime. ??? mycophenolate (CELLCEPT) 250 mg capsule Take [...] mouth 2 times a day as needed. ??? tacrolimus ER, 24 HR, (ENVARSUS XR) 1 mg Tb24 Take 2 tablets (2 mg total) by mouth daily. ??? torsemide (DEMADEX) 20 MG tablet Take 1 tablet (20 mg total) by mouth daily. ??? cloNIDine HCl (CATAPRES) 0.1 MG tablet Take 1 tablet (0.1 mg total) by mouth if needed. (Patient taking differently: Take 0.1 mg by mouth 2 times a day. ) ??? insulin glulisine U-100 (APIDRA U-100 INSULIN) 100 unit/mL injection Pt is taking as sliding scale Vital Signs Temp: [98.4 ??F (36.9 ??C)] 98.4 ??F (36.9 ??C) Heart Rate: [79] 79 Resp: [18] 18 BP: (187)/(94) 187/94 No intake or output data in the 24 hours ending 06/28/19 0038 Physical Exam General: Alert, oriented times 3, not in acute distress HEENT: Normocephalic/atraumatic; PERRLA, mucous membranes moist, no icterus. Neck: Supple, No JVD, No lymphadenopathy or thyroid enlargement. Chest: No deformity. No use of accessory muscles of respiration. Lungs: Clear to auscultation bilaterally, no wheezing, rales. Heart: Normal rate, regular rhythm, heart sounds nl, no MRG, intact pulses Abdomen: Obese and distended, soft and non-tender, BS normal, large scar in RUQ Extremities: 1+ edema to mid mcknight, no cyanosis Neuro: No gross neurological deficits. Moves all 4 extremities. A&Ox3. Skin: Warm, dry, no rashes, no jaundice Psych: Affect nl, judgment nl Laboratory Data Lab 06/27/192107 WBC 2.4* HEMOGLOBIN 7.2* HEMATOCRIT 22.6* MEAN CORPUSCULAR VOLUME 86.4 PLATELETS 189 Lab 06/27/192107 SODIUM 140 POTASSIUM 6.0* CHLORIDE 114* CO2 20* BUN 45* CREATININE 4.60* GLUCOSE 205* Lab 06/27/192107 CALCIUM 7.9* PHOSPHORUS 4.1 Lab 06/27/192107 ALT 10 AST 10* ALK PHOS 117 BILIRUBIN TOTAL 0.2 BILIRUBIN DIRECT 0.04 ALBUMIN 3.3* 3.3* Lab 06/28/19 0034 POC GLU MONITORING DEVICE 184* Diagnostic Studies No results found. Assessment & Plan Leoncio Rollins is a 44 y.o. male being admitted to the hospital for acute kidney injury. Medical problems being addressed in this encounter include the following: #Hyperkalemia Likely 2/2 to acute on chronic kidney disease. Pt presented to OSH for N/V/D and was found to have potassium of 6.1 with no EKG changes. He was treated there with calcium gluconate, and insulin. On arrival to [facility], potassium was 6.0, again without symptoms or EKG changes. -Insulin with dextrose -Kayexalate -sodium bicarb given concurrent non-AG metabolic acidosis -trend renal panel- repeat K 5.5 #Acute on chronic kidney injury Pts cr is 4.6 on arrival, it was 3.9 at OSH. Appears his Cr has crept up since last admission in January due to addition of torsemide for swelling. Was 3.3 when he saw mouse breeder in January. Their rec was to continue on torsemide but per his PCPs rec he has been taking it PRN. 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 His kidney function may be acutely worsening due to dehydration. Transplant nephrology consulted with concern CARMEN could be related to tacro. They recommend dialysis, pt is still considering. -holding tacro and other nephrotoxic agents -125 ml/hr NS -Consult IR for dialysis line -strict I/o #Nausea/vomiting/diarrhea Likely 2/2 to viral gastroenteritis. Pt has grandson who recently sick with similar symptoms. He has not had any antibiotics recently or hospitalizations since January. No abdominal pain. 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 -gabapentin 200 mg BID for renal dosing -tegretol 200 mg at bedtime Nutrition: Diet Orders Diet NPO past midnight Except for: except meds, except meds and ice, except sips with meds startingat 06/27 4957 Code Status: Full Code Signed: MARU HAINES MD 06/28/2019, 12:38 AM Cosigned by Robin Roberts MD at 06/28/2019 3:10 PM EST Associated attestation - Robin Roberts MD - 06/28/2019 3:[address] [facility] Medicine Attending Supervision Note Leoncio Rollins was seen today on rounds with the resident physician. I personally interviewed and examined the patient. I reviewed the documentation by the resident and agree as documented unless otherwise stated below. Reason for today's visit: Hyperkalemia Supplemental History / ROS He reports that he was having watery stool, denies any foul smell, says it was just mucus. No cramping. One episode of emesis. [place] dehydrated. Feels exhausted, he thinks this is due to kidney failure. He doesn't want dialysis, is hoping to get transplant before that would ne necessary. Says thathe is in the local program for gastric sleeve because he thought the UC one would take too long. Supplemental Exam: Agree with resident exam Medical Decision Making: I conducted an independent review of the labs, procedures, and imaging pertinent to today's encounter through the EMR. Assessment & Plan Leoncio Rollins is a 44 y.o. male on hospital day 1. The medical issues being addressed in today's encounter are as follows: Principal Problem: Hyperkalemia Active Problems: Hypertension Diabetes mellitus ([facility] Dx) Liver transplant recipient ([facility] Dx) Immunosuppression ([facility] Dx) Undqf-id-fjvrwam kidney injury ([facility] Dx) Metabolic acidosis Diarrhea in adult patient Acute kidney injury on CKD. Sounds hypovolemic in the setting of GI losses. Appreciate renal recs Hyperkalemia. Due to above. Medically treating. Renal diet. Nongap metabolic acidosis. Due to renal disease. Continue current fluids (tried to avoid NS given hyperchloremia and LR and normosol have K in them) - on 1.5 amps bicarb in 1/2 NS to hydrate. Normocytic anemia. Monitor. Try to avoid transfusion since he would be a renal transplant candidate. Iron studies not consistent with JOSE ALFREDO - likely anemia of chronic inflammation. S/p OLT. LFTs stable. Continue IS. Appreciate hepatology consultation. T2DM. Titrate insulin. Dispo - pending stability in SCr/K ROBIN ROBERTS MD Attending Physician Department of Internal Medicine Pager ID: [phone] 2:55 PM, 06/28/2019 documented in this encounter Consult Notes * Micha Diaz MD - 06/28/2019 2:50 PM ESTAssociated Order(s): IP CONSULT TO LIVER Attending Physician's Note: I have personally seen and examined the patient, have discussed the case with Dr. Barba, agree with her note and confirm it. Please see Dr. Barba'snote separately for more details. A 44 y.o. malewith a history of OLT last year is admitted for diarrhea, which is resolved. Liver consult was obtained to help with immunosuppression management. Pt had a brief duration of diarrhea which resolved a day and a half ago. No new complaints. PE In no apparent cardiopulmonary distress No stigmata of liver disease Abdomen is soft, non-tender Alert and oriented times three A&P Immunosuppression: Please restart tacrolimus (envarsus) at previous home dose and continue MMF at his home dose. Discussed with renal colleagues over the phone. * Bayron Dawson MD - 06/28/2019 1:05 PM EST [facility] CONSULT NOTE Name: Leoncio Rollins CSN: [id number] Consulted by: Robin Roberts MD Chief Complaint: OLT 09/2017, immunosuppression recs History of Present Illness: Leoncio Rollins is a 44 y.o. 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 Reported that symptoms started on Monday, had a total of 10 loose BM. Priorto this was in his normal state of health. Reports that his grandson was sick with similar symptomsa week prior. Denies fever, chills, sweats, abdominal pain, melena, hematemesis. Reports that this morning had a normal BM and feels that is back to his baseline. On presentation was noted to have CARMEN on CKD with Cr elevated to 4.6 (baseline ~ 3.5) and hyperkalemia with K 6. Tacrolimus was held and continued with Cellcept. Received Kayexalate for hyperkalemia. Review of Systems GEN: Negative for fever, chills, sweats, involuntary weight loss or gain SKIN: Negative for rashes or lesions HEENT: Negative for headaches, earache, throat pain, odynophagia, change in vision or rhinorrhea CV: Negative for chest pain, palpitations or LE edema RESP: Negative for SOB, cough or wheezing GI: Negative for nausea, vomiting, diarrhea, constipation or abdominal pain : Negative for dysuria, urgency, frequency or incontinence MS: Negative for arthralgias or myalgias NEURO: Negative for seizures, syncope, weakness in limbs, memory loss or confusion ENDO: Negative for hot/cold flashes LYMPH: Negative for swollen lymph nodes PSYCH: Negative for depression or anxiety Past Medical History: Diagnosis Date ??? Acute [...] of Onset ??? Diabetes Sister Social History Tobacco Use ??? Smoking status: Never Smoker ??? Smokeless tobacco: Never Used Substance Use Topics ??? Alcohol use: No Allergies Allergen Reactions ??? Codeine Sulfate Hyper ??? Codeine Other (See Comments) Becomes hyper Scheduled Meds: ??? aspirin 81 mg Oral Daily with breakfast ??? carBAMazepine 200 mg Oral Nightly (2099) ??? carvedilol 50 mg Oral BID WC ??? cloNIDine HCl 0.1 mg Oral BID ??? entecavir 0.5 mg Oral Every Other Day ??? famotidine 20 mg Oral Daily 0900 ??? gabapentin 400 mg Oral BID ??? heparin 5,000 Units Subcutaneous 3 times per day ??? insulin lispro 0-5 Units Subcutaneous TID AC ??? insulin NPH 12 Units Subcutaneous Nightly (2099) ??? insulin NPH 28 Units Subcutaneous QAM ??? mycophenolate 750 mg Oral BID ??? NIFEdipine 90 mg Oral BID ??? polyethylene glycol 17 g Oral BID ??? sodium chloride 10 mL Intravenous QS ??? tacrolimus ER (24 HR) 2 mg Oral DAILY 0700 ??? terazosin 10 mg Oral BID Continuous Infusions: ??? sodium bicarbonate in 1000 mL iv infusion 75 mL/hr (06/28/19 0942) PRN Meds: acetaminophen, cyclobenzaprine, dextrose 10% in water OR dextrose 10% in water, glucose, ondansetron OR ondansetron Prior to Admission Meds: Medications Prior to Admission Medication Sig Dispense Refill Last Dose ??? aspirin 81 MG chewable tablet Chew 1 tablet (81 mg total) by mouth daily with breakfast. 30 tablet 5 06/26/2019 at Unknown time ??? blood sugar diagnostic Strp Use to test blood sugar up to 4 times a day. Diagnosis for use: E 9.65. For use with One Touch Verio meters. 150 strip 5 06/26/2019 at Unknown time ??? blood-glucose meter ([employer] VERIO SYSTEM) [facility] Use as instructed. 1 each 0 06/26/2019 at Unknown time ??? carBAMazepine (TEGRETOL) 200 mg tablet Take 200 mg by mouth at bedtime. 06/26/2019 at Unknown time ??? carvedilol (COREG) 25 MG tablet Take 2 tablets (50 mg total) by mouth 2 times a day with meals.120 tablet 5 06/26/2019 at Unknown time ??? doxazosin (CARDURA) 8 MG tablet 8 mg 2 times a day. 06/26/2019 at Unknown time ??? entecavir (BARACLUDE) 0.5 MG tablet Take 1 tablet (0.5 mg total) by mouth every other day. 15 tablet 06/26/2019 at Unknown time ??? ergocalciferol (VITAMIN D2) 50,000 unit capsule Take 50,000 Units by mouth once a week. Past Week at Unknown time ??? famotidine (PEPCID) 20 MG tablet Take 20 mg by mouth daily. 06/26/2019 at Unknown time ??? fluticasone propionate (FLONASE) 50 mcg/actuation nasal spray use 2 spray(s) in each nostril daily 11 Past Month at Unknown time ??? gabapentin (NEURONTIN) 100 MG capsule Take 2 capsules (200 mg total) by mouth 3 times a day. (Patient taking differently: Take 800 mg by mouth 2 times a day. ) 180 capsule 0 06/26/2019 at Unknown time ??? insulin NPH isoph U-100 human (HUMULIN N NPH INSULIN KWIKPEN) 100 unit/mL (3 mL) InPn Inject subcutaneously 15 units in the AM and 15 units in the PM. 15 mL 5 06/26/2019 at Unknown time ??? lancets ([employer]ET[employer]CH DELICA LANCETS) 33 gauge Misc Use 1 strip as directed 4 times daily before meals and at bedtime. 150 each 5 06/26/2019 at Unknown time ??? mycophenolate (CELLCEPT) 250 mg capsule Take 3 capsules (750 mg total) by mouth 2 times a day. 180 capsule 5 06/26/2019 at Unknown time ??? NIFEdipine (PROCARDIA-XL) 90 MG (OSM) 24 hr tablet Take 90 mg by mouth 2 times a day. 06/26/2019 at Unknown time ??? ondansetron (ZOFRAN-ODT) 4 MG disintegrating tablet every 8 hours as needed. Past Week at Unknown time ??? pen needle, diabetic 32 gauge x Ndle Use as directed to inject insulin 4 times daily. 150each 5 06/26/2019 at Unknown time ??? pen needle, diabetic 32 gauge x Ndle For use with insulin pen. Use as instructed. 150 each 5 06/26/2019 at Unknown time ??? polyethylene glycol (MIRALAX) 17 gram packet Take 17 g by mouth 2 times a day as needed. 100 packet 0 06/26/2019 at Unknown time ??? tacrolimus ER, 24 HR, (ENVARSUS XR) 1 mg Tb24 Take 2 tablets (2 mg total) by mouth daily. 60 tablet 5 06/26/2019 at Unknown time ??? torsemide (DEMADEX) 20 MG tablet Take 1 tablet (20 mg total) by mouth daily. 30 tablet 5 Past Week at Unknown time ??? cloNIDine HCl (CATAPRES) 0.1 MG tablet Take 1 tablet (0.1 mg total) by mouth if needed. (Patient taking differently: Take 0.1 mg by mouth 2 times a day. ) 60 tablet 0 Taking ??? insulin glulisine U-100 (APIDRA U-100 INSULIN) 100 unit/mL injection Inject 5 Units subcutaneously 3 times a day with meals. 10 mL 0 Taking Physical exam: Temp: [98 ??F (36.7 ??C)-98.4 ??F (36.9 ??C)] 98.1 ??F (36.7 ??C) Heart Rate: [74-91] 86 Resp: [14-19] 18 BP: (152-187)/(80-94) 173/81 FiO2: [21 %] 21 % Intake/Output Summary (Last 24 hours) at 06/28/2019 1655 Last data filed at 06/28/2019 1609 Gross per 24 hour Intake 1190 ml Output 200 ml Net 990 ml GEN: Well appearing male in no acute distress HEENT: Normocephalic, atraumatic, PERRLA, EOMI, no scleral icterus. Dry MM. NECK: Supple with normal ROM. LUNGS: Clear breath sounds to auscultation. No use of accessory muscles. CV: Regular S1/S2, no murmurs. ABD: Normal bowel sounds. Soft, non tender, non distended. No rebound or guarding. LYMPHATIC: No cervical, axillary or inguinal adenopathy. EXTREMITIES: Positive peripheral pulses. No edema or cyanosis. SKIN: Warm and moist, no rashes. NEURO: Awake, alert and oriented x3. Non-focal motor examination. PSYCHIATRIC: Normal mood and affect. Laboratory: Lab Results Component Value Date WBC 2.3 (L) 06/28/2019 HGB 7.1 (L) 06/28/2019 HCT 21.8 (L) 06/28/2019 MCV 85.1 06/28/2019 PLT 176 06/28/2019 Lab Results Component Value Date NA 140 06/28/2019 K 5.5 (H) 06/28/2019 CL 113 (H) 06/28/2019 CO2 20 (L) 06/28/2019 BUN 44 (H) 06/28/2019 CREATININE 4.59 (H) 06/28/2019 GLUCOSE 164 (H) 06/28/2019 CALCIUM 7.6 (L) 06/28/2019 PHOS 4.0 06/28/2019 Lab Results Component Value Date AST 10 (L) 06/27/2019 ALT 10 06/27/2019 BILITOT 0.2 06/27/2019 BILIDIRECT 0.04 06/27/2019 PROT 5.7 (L) 06/27/2019 ALBUMIN 3.3 (L) 06/28/2019 ALKPHOS 117 06/27/2019 Lab Results Component Value Date INR 1.0 01/14/2019 No results found for: AMYLASE Lab Results Component Value Date LIPASE 139 (H) 04/26/2018 Lab Results Component Value Date HEPAIGM Nonreactive 08/21/2017 HEPBCAB Nonreactive 12/13/2018 No results found for: TERESA No results found for: SMOOTHMUSCAB Lab Results Component Value Date IRON 51 05/15/2019 TIBC 266 05/15/2019 FERRITIN 225 05/15/2019 No results found for: OCCULTBLD No results found for: AFP No results found for: CEA No results found for: CA125 Lab Results Component Value Date [id number] 525 05/15/2019 No results found for: FOLATE Microbiology: Lab Results Component Value Date LABGRAM 10/25/2017 Minimal Oral Contamination <25 Polymorphonuclear Leukocytes; <10 Squamous Epithelial Cells Per Low Power Field LABGRAM Moderate Gram Positive Cocci in Chains and Pairs; 10/25/2017 ISO2 Scant Growth (A) 10/25/2017 ISO2 Pseudomonas fluorescens (A) 10/25/2017 ISO2 Identified by MALDI-TOF MS (A) 10/25/2017 ISO2 Testing Performed at Laboratory (A) 10/25/2017 Images: Reviewed Assessment/Plan: Principal Problem: Hyperkalemia Active Problems: Hypertension Diabetes mellitus ([facility] Dx) Liver transplant recipient ([facility] Dx) Immunosuppression ([facility] Dx) Zgjjx-er-wdeanda kidney injury ([facility] Dx) Metabolic acidosis Diarrhea in adult patient Leoncio Rollins is a 44 y.o. 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 Noted to have CARMEN and hyperkalemia, symptoms now resolved, Cr remains elevatedand K improved from 6 to 5.5 with Kayexalate. 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 Please call back with further questions. Patient was seen and plan was discussed with attending Dr. Micha Diaz. Bayron Barba MD Gastroenterology and Hepatology Fellow Pager: [phone] (on weekdays after 5 pm and weekends/holidays, please page GI fellow regional recruiter) Cosigned by Micha Diaz MD at 06/29/2019 12:18 AM EST Associated attestation - Micha Diaz MD - 06/29/2019 12:18 AM EST Attending Physician's Note: I have discussed the case with Dr. Barba, agree with her note and confirm it. * Krystal Najera RN - 06/28/2019 11:57 AM EST [facility] RN CM Psychosocial Assessment Leoncio Rollins [id number] 44 y.o. male White or Marital Status: CARMEN Referred by: MD Referred Reason: discharge planning At this time, possible discharge needs are: Home independent no needs verbalized or idenified. History Past Medical History: Diagnosis Date ??? 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 CM introduced self, explained role, and verified demographic information. Patient is 44 y.o. male and lives at [address] [place], [place] [id number] Patient reports employment status is on disability Patient reports he is a recipient of disability benefits and/or financial assistance programs. Patient has insurance coverage through Payor: MEDICARE / Plan: MEDICARE A AND B / Product Type: Medicare / . Patient reports at time of discharge family will be primary support and will provide transportationto appointments. Patient reports no current or past history of suicidal/homicidal ideation. Patient reports no history of mental health diagnoses and/or concerns at this time. Patient reportsno history of alcohol and/or illicit drug abuse. Patient reports no current or past need for durable medical equipment. Patient reports no history of placements at group home facility and/or inpatient rehab program. Patient anticipated to discharge Home independent no needs verbalized or idenified. CM's contact information provided to patient. Will continue to follow patient, communicate with team, and assist with discharge planning as needed. This assessment has been reviewed with the multi-disciplinary team. Patient/Family aware and takingpart in the discharge plan. CM will follow with team and coordinate transition to appropriate levelof care. At this time, possible discharge needs are: Home independent no needs verbalized or idenified. Krystal Najera RN ,BSN, [facility] legal administratorArt Instructor Department [phone] * Nora Velez MD - 06/28/2019 11:47 AM ESTAssociated Order(s): IP CONSULT TO RENAL Nephrology Consult H&P 06/28/2019 11:27 AM Patient: Leoncio Rollins [id number] Date of Admit: 06/27/2019 LOS: 1 days Referring physician: Robin Roberts MD Reason for Consult CARMEN on CKD History of Present Illness Pt is a 44 yo M c PMH of KIM cirrhosis s/p OLT in 09/2017, CKD stage IV/V, and HTN, who presented with nausea, vomiting, and diarrhea. Pt had nausea and diarrhea for 2 days and went to OSH 2 days ago. Pt was found to have CARMEN with Cr 4.8 and then transferred to for further evaluation. Pt was admitted in 01/2019 for fluid overload and had 13gm of proteinuria. Kidney biopsy was offered but pt refused at that time. Cr was around mid 3s over this year. Pt denies exposure to NSAIDs. Pt states he vomited once on Monday and diarrhea has resolved. Transplant nephrology was consulted for medical management of CARMEN on CKD. Past medical, family, and social histories were reviewed as previously documented. Updates were made as necessary. Review of Systems (Focused) Significant as listed in HPI otherwise GEN: no recent fever, chills or night sweats HEENT: no changes in vision, sore throat, rhinorrhea CV: no cp, sob or orthopnea Pulm: no cough or hemoptysis GI: + nausea and vomiting. No abd pain. Diarrhea not resolved : no bowel or bladder incontinence, no dysuria MSK: no muscle or joint pain Skin: no rashes, wounds or itching Allergies: NKDA Psych: no HI/SI Past Medical History Past Medical History: Diagnosis [...] mouth daily with breakfast. 30 tablet 5 06/26/2019 at Unknown time ??? blood sugar diagnostic Strp Use to test blood sugar up to 4 times a day. Diagnosis for use: E 9.65. For use with One Touch Verio meters. 150 strip 5 06/26/2019 at Unknown time ??? blood-glucose meter (ONETOUCH VERIO SYSTEM) [facility] Use as instructed. 1 each 0 06/26/2019 at Unknown time ??? carBAMazepine (TEGRETOL) 200 mg tablet Take 200 mg by mouth at bedtime. 06/26/2019 at Unknown time ??? carvedilol (COREG) 25 MG tablet Take 2 tablets (50 mg total) by mouth 2 times a day with meals.120 tablet 5 06/26/2019 at Unknown time ??? doxazosin (CARDURA) 8 MG tablet 8 mg 2 times a day. 06/26/2019 at Unknown time ??? entecavir (BARACLUDE) 0.5 MG tablet Take 1 tablet (0.5 mg total) by mouth every other day. 15 tablet 11 06/26/2019 at Unknown time ??? ergocalciferol (VITAMIN D2) 50,000 unit capsule Take 50,000 Units by mouth once a week. Past Week at Unknown time ??? famotidine (PEPCID) 20 MG tablet Take 20 mg by mouth daily. 06/26/2019 at Unknown time ??? fluticasone propionate (FLONASE) 50 mcg/actuation nasal spray use 2 spray(s) in each nostril daily 11 Past Month at Unknown time ??? gabapentin (NEURONTIN) 100 MG capsule Take 2 capsules (200 mg total) by mouth 3 times a day. (Patient taking differently: Take 800 mg by mouth 2 times a day. ) 180 capsule 0 06/26/2019 at Unknown time ??? insulin NPH isoph U-100 human (HUMULIN N NPH INSULIN KWIKPEN) 100 unit/mL (3 mL) InPn Inject subcutaneously 15 units in the AM and 15 units in the PM. 15 mL 5 06/26/2019 at Unknown time ??? lancets (ONETOUCH DELICA LANCETS) 33 gauge [facility] Use 1 strip as directed 4 times daily before meals and at bedtime. 150 each 5 06/26/2019 at Unknown time ??? mycophenolate (CELLCEPT) 250 mg capsule Take 3 capsules (750 mg total) by mouth 2 times a day. 180 capsule 5 06/26/2019 at Unknown time ??? NIFEdipine (PROCARDIA-XL) 90 MG (OSM) 24 hr tablet Take 90 mg by mouth 2 times a day. 06/26/2019 at Unknown time ??? ondansetron (ZOFRAN-ODT) 4 MG disintegrating tablet every 8 hours as needed. Past Week at Unknown time ??? pen needle, diabetic 32 gauge x Ndle Use as directed to inject insulin 4 times daily. 150each 5 06/26/2019 at Unknown time ??? pen needle, diabetic 32 gauge x Ndle For use with insulin pen. Use as instructed. 150 each 5 06/26/2019 at Unknown time ??? polyethylene glycol (MIRALAX) 17 gram packet Take 17 g by mouth 2 times a day as needed. 100 packet 0 06/26/2019 at Unknown time ??? tacrolimus ER, 24 HR, (ENVARSUS XR) 1 mg Tb24 Take 2 tablets (2 mg total) by mouth daily. 60 tablet 5 06/26/2019 at Unknown time ??? torsemide (DEMADEX) 20 MG tablet Take 1 tablet (20 mg total) by mouth daily. 30 tablet 5 Past Week at Unknown time ??? cloNIDine HCl (CATAPRES) 0.1 MG tablet Take 1 tablet (0.1 mg total) by mouth if needed. (Patient taking differently: Take 0.1 mg by mouth 2 times a day. ) 60 tablet 0 Taking ??? insulin glulisine U-100 (APIDRA U-100 INSULIN) 100 unit/mL injection Inject 5 Units subcutaneously 3 times a day with meals. 10 mL 0 Taking Scheduled Meds: ??? aspirin 81 mg Oral Daily with breakfast ??? carBAMazepine 200 mg Oral Nightly (2099) ??? carvedilol 50 mg Oral BID WC ??? cloNIDine HCl 0.1 mg Oral BID ??? entecavir 0.5 mg Oral Every Other Day ??? famotidine 20 mg Oral Daily 0900 ??? gabapentin 400 mg Oral BID ??? heparin 5,000 Units Subcutaneous 3 times per day ??? insulin lispro 0-5 Units Subcutaneous TID AC ??? insulin NPH 12 Units Subcutaneous Nightly (2099) ??? insulin NPH 28 Units Subcutaneous QAM ??? mycophenolate 750 mg Oral BID ??? NIFEdipine 90 mg Oral BID ??? polyethylene glycol 17 g Oral BID ??? sodium chloride 10 mL Intravenous QS ??? tacrolimus ER (24 HR) 2 mg Oral BID ??? terazosin 10 mg Oral BID Continuous Infusions: ??? sodium bicarbonate in 1000 mL iv infusion 75 mL/hr (06/28/19 0942) PRN medications: cyclobenzaprine, dextrose 10% in water OR dextrose 10% in water, glucose, ondansetron OR ondansetron Allergies: Allergies Allergen Reactions ??? Codeine Sulfate Hyper ??? Codeine Other (See Comments) Becomes hyper Vital Signs Temp: [98 ??F (36.7 ??C)-98.4 ??F (36.9 ??C)] 98 ??F (36.7 ??C) Heart Rate: [79-91] 82 Resp: [14-19] 19 BP: (164-187)/(80-94) 164/80 FiO2: [21 %] 21 % Patient Vitals for the past 4 hrs: BP Temp Temp src Pulse Resp SpO2 06/28/19 0820 164/80 -- -- 82 -- -- 06/28/19 0809 164/80 98 ??F (36.7 ??C) Oral 82 19 99 % Wt Readings from Last 3 Encounters: 06/27/19 (!) 285 lb (129.3 kg) 02/28/19 (!) 282 lb (127.9 kg) 02/12/19 (!) 282 lb (127.9 kg) Admit Wt: Weight: (!) 285 lb (129.3 kg) Todays Wt: Weight: (!) 285 lb (129.3 kg) Estimated body mass index is 44.64 kg/m?? as calculated from the following: Height as of this encounter: 5' 7 (1.702 m). Weight as of this encounter: 285 lb (129.3 kg). Date 06/27/19 07 - 06/28/19 0659 06/28/19 07 - 06/29/19 0659 Shift 3474-1848 5391-1838 4974-8917 24 Hour Total 3194-8887 2839-8324 3049-8472 24 Hour Total INTAKE P.O. 240 240 0 0 P.O. 240 240 0 0 I.V. 700(5.4) 700(5.4) Volume (mL) (dextrose 10 % (D10W) in water infusion) 250 250 Volume (mL) (sodium chloride 0.9 % infusion) 450 450 Shift Total(mL/kg) 240(1.9) 700(5.4) 940(7.3) 0(0) 0(0) OUTPUT Urine Urine Occurrence 2 x 2 x 0 x 0 x Emesis/NG output Emesis Occurrence 0 x 0 x Stool Stool Occurrence 0 x 0 x Shift Total(mL/kg) Weight (kg) 129.3 129.3 129.3 129.3 129.3 129.3 129.3 Intake/Output Summary (Last 24 hours) at 06/28/2019 1127 Last data filed at 06/28/2019 0809 Gross per 24 hour Intake 940 ml Output -- Net 940 ml I/O last 3 completed shifts: In: 940 [P.O.:240; I.V.:700] Out: - RESPIRATORY Ventilator Setting: No data found. Fi02 Requirement: No data found. Last ABG: Lab Results Component Value Date PCO2 34 (L) 10/09/2017 [id number] 97.6 10/09/2017 Physical Exam General appearance: in NAD Head: Normocephalic, without obvious abnormality, atraumatic Mouth: no oral ulcers or thrush Neck: No JVD, trachea midline Lungs: clear to auscultation bilaterally and no respiratory distress Heart: regular rate and rhythm, no murmurs Abdomen: soft, non-tender non-distended Extremities: no leg edema Skin: No rashes/lesions noted, no skin tears Psych: good eye contact, normal affect Laboratory Data Recent Labs 06/27/19210706/28/19426 WBC 2.4* 2.3* HGB 7.2* 7.1* HCT 22.6* 21.8* MCV 86.4 85.1 PLT 189 176 Recent Labs 06/27/19210706/28/19426 NA 140 140 K 6.0* 5.5* CL 114* 113* CO2 20* 20* BUN 45* 44* CREATININE 4.60* 4.59* GLUCOSE 205* 164* CALCIUM 7.9* 7.6* MG -- 1.8 PHOS 4.1 4.0 ANIONGAP 6 7 No results for input(s): INR, PROTIME, PTT in the last 72 hours. FSBS Range: Recent Labs 06/28/19 0034 06/28/19 0143 06/28/19 0304 06/28/19 0404 06/28/19 0458 06/28/19 0604 POCGMD 184* 198* 204* 198* 166* 140* Recent Labs 06/27/19 2108 ALT 10 AST 10* ALKPHOS 117 BILITOT 0.2 Cardiac Labs: No results for input(s): CKTOTAL, CKMB, CKMBINDEX, TROPONINI, BNP, NTPROBNP in the last 72 hours. No results for input(s): CHOLTOT, TRIG, HDL, CHOLHDL, LDL in the last 72 hours. Invalid input(s): VLDCHOL Lab Results Component Value Date HGBA1C 7.2 (A) 05/15/2019 HGBA1C 7.4 (H) 12/13/2018 HGBA1C 5.3 01/02/2018 Nephro Labs: Recent Labs 06/28/19 1047 COLORU Yellow CLARITYU Clear PROTEINUA >=500* PHUR 5.0 LABSPEC 1.015 GLUCOSEU 150* BLOODU Small* LEUKOCYTESUR Negative NITRITE Negative BILIRUBINUR Negative UROBILINOGEN <2.0 RBCUA <1 WBCUA 2 BACTERIA Rare* Recent Labs 06/28/19 1047 NAUR 74 KUR 33.0 CLUR 77 No results found for: MICROALBUR, [id number] Lab Results Component Value Date PTH 164.0 (H) 01/14/2019 CALCIUM 7.6 (L) 06/28/2019 PHOS 4.0 06/28/2019 Lab Results Component Value Date [id number] 15.8 (L) 01/14/2019 Anemia Labs: Lab Results Component Value Date IRON 51 05/15/2019 TIBC 266 05/15/2019 FERRITIN 225 05/15/2019 Lab Results Component Value Date [id number] 525 05/15/2019 Sepsis Marker Labs: Recent Labs 06/27/19 2108 LACTATE 0.5 Lab Results Component Value Date FIBRINOGEN 192 (L) 10/08/2017 No results for input(s): TEGANGLE, TEGKTIME, NLGDBSFE72, TEGMAXAMPL, TEGRTIME, CBMZ in the last 72 hours. No results for input(s): ESR, CRP in the last 72 hours. No results found for: ESR, CRP Infectious Labs Urine cx: Lab Results Component Value Date COLORU Yellow 06/28/2019 CLARITYU Clear 06/28/2019 PROTEINUA >=500 (A) 06/28/2019 PHUR 5.0 06/28/2019 LABSPEC 1.015 06/28/2019 GLUCOSEU 150 (A) 06/28/2019 BLOODU Small (A) 06/28/2019 LEUKOCYTESUR Negative 06/28/2019 NITRITE Negative 06/28/2019 BILIRUBINUR Negative 06/28/2019 UROBILINOGEN <2.0 06/28/2019 RBCUA <1 06/28/2019 WBCUA 2 06/28/2019 BACTERIA Rare (A) 06/28/2019 Blood cx: Lab Results Component Value Date [...] found for: HIV1X2 No results found for: [id number] No results found for: VDRLCSF Lab Results Component Value Date HEPAIGM Nonreactive 08/21/2017 HEPBCAB Nonreactive 12/13/2018 No results found for: [id number] No results found for: [id number] In addition to the above an extensive amount of complex data in the patients lab and chart were reviewed. Diagnostic Studies No orders to display Assessment & Plan CARMEN on CKD Cr ~3.9 since 03/2019 Cr 4.60->4.59 Non-oliguric Known to have nephrotic range proteinuria - serologies negative except TERESA 1:160 and faint monoclonal band on SPEP on 02/28/19 Etiology of CKD and proteinuria unclear - diabetic nephropathy is possible despite A1c is not very high in the setting of CNI exposure Tacrolimus level <2.0, pt states he was not given any tacro at OSH Urine prot/Cr 6-7 gms - Obtain US kidney - No utility in kidney biopsy at this point as his CKD seems already advanced - Agree with IVF - Strict I/Os - Avoid nephrotoxins and unnecessary iv contrasts - Repeat SPEP (previously had faint M band) Immunosuppression: Current regimen - Cellcept 750 BID and Envarsus 2mg daily - Defer to liver team Vomiting and diarrhea: Now resolved Please check C diff, GI panel, and CMV PCR Acid/base electrolytes: Bicarb 20, gap normal, K 5.5 Cont bicarb gtt Volume/BP: Resumed home meds Heme: Lab Results Component Value Date WBC 2.3 (L) 06/28/2019 RBC 2.57 (L) 06/28/2019 HGB 7.1 (L) 06/28/2019 HCT 21.8 (L) 06/28/2019 MCV 85.1 06/28/2019 MCH 27.6 06/28/2019 MCHC 32.5 06/28/2019 RDW 14.1 06/28/2019 PLT 176 06/28/2019 Hapto/LDH normal - Check CMV PCR and iron panel Thank you for allowing us to participate in the care of this patient. Discussed with consult attending. Signed: NORA VELEZ MD 11:27 AM Pager [phone] Cosigned by Rajwinder Polanco at 06/28/2019 10:41 PM EST Associated attestation - Rajwinder Polanco - 06/28/2019 10:41 PM EST I saw and evaluated the patient, and discussed with the resident. I agree with the resident???s findings and plan as documented in the resident???s note. documented in this encounter Nursing Notes * Marielle Schneider RN - 07/01/2019 3:02 PM EST Pt. Discharged per MD order. PIV removed. Completed bladder scan before pt left with a volume of 0 mL. Printed AVS and discussed the changes in medications with patient and pt's spouse. Patient left unit with spouse. * Claudia Nobles RN - 06/30/2019 7:19 PM EST 06/30/19 7p-7a ?? Significant Events During Shift: None Patient/Family Concerns:None Precausions: None Pain: Pain in legs, Roxycodone 2.5mg q 6 ?? Assessment: Nursing time demands: High IV access: 20G, Right FA, NS locked Sitter requirements: none CMU: SpO2 POCT: AC HS B&B: Continent of bowel, Pt urinating adequately, voids per urinal or bathroom. Mobility: Independent1 Skin: No issues ?? Mental Status for the past 12 hrs: ?? Level of Consciousness, Orientation Level, & Cognition Alert & Oriented X4, Ability to abstract, Appropriate judgement, Appropriate safety awareness, Appropriate attention/concentration, Appropriate for developmental age, Follows 2-step commands * Amaya Jones RN - 06/29/2019 2:37 AM EST Patient refused subcut heparin. Education provided. Patient verbalized understanding. MD notified. Sequential compression devices place. * Amaya Jones RN - 06/29/2019 12:54 AM EST Patient c/o of neck spasms. Per patient, flexeril provides no relief. paged. Zanaflex, 2 mg administered to the patient per MD order. * Amaya Jones RN - 06/28/2019 11:23 PM EST Patient has c/o of diarrhea. Patient requesting medication for relief. paged. Imodium ordered, and administered to the patient. * Claudia Nobles RN - 06/28/2019 5:16 AM EST 06/27/19 7p-7a ?? Significant Events During Shift: None Patient/Family Concerns:None Precausions: None Pain: Experienced some pain in his neck. ?? Assessment: Nursing time demands: High IV access: 20G in Right FA, Infusing NS at 125ml/hr Sitter requirements: none CMU: EKG POCT: Q hr x 6 B&B: Continent of bowel, Pt urinating adequately. Mobility: Independent Skin: Tima issues ?? Mental Status for the past 12 hrs: ?? Level of Consciousness, Orientation Level, & Cognition Alert & Oriented X4, Ability to abstract, Appropriate judgement, Appropriate safety awareness, Appropriate attention/concentration, Appropriate for developmental age, Follows 2-step commands documented in this encounter Miscellaneous Notes * Care Coordination - Krystal Najera RN - 07/01/2019 12:10 PM EST Home independent no needs verbalized or idenified. Krystal Najera RN ,BSN, [facility] legal administratorArt Instructor Department [phone] * Plan of Care - Claudia Nobles RN - 06/30/2019 9:52 PM EST Reviewed plan of care including provider roles, health history, IV and medications, labs and tests,and discharge planning. Reminded the pt that they should always let staff know if they are having difficulty breathing, pain or discomfort at any time * Plan of Care - Rose Haynes RN - 06/30/2019 9:31 AM EST Assessment complete. See flowsheet. Denies pain. Problem: Pain Goal: Patient's pain is progressing toward patient's stated pain goal Description Assess and monitor patient's pain using appropriate pain scale. Collaborate with interdisciplinary team and initiate plan and interventions as ordered. Re-assess patient's pain level 30 - 60 minutes after pain management intervention. 06/30/2019 1221 by Rose Haynes RN Outcome: Progressing 06/30/2019 1221 by Rose Haynes RN Outcome: Progressing * Plan of Care - Amaya Jones RN - 06/29/2019 2:50 AM EST Problem: Knowledge deficit related to self-management of chronic disease Goal: Patient/family/caregiver demonstrates understanding of disease process, treatment plan, medications, and discharge instructions Outcome: Progressing Problem: Fall Prevention Goal: Patient will remain free of falls Description Assess and monitor vitals signs, neurological status including level of consciousness and orientation. Reassess fall risk per hospital policy. Ensure arm band on, uncluttered walking paths in room, adequate room lighting, call light and overbed table within reach, bed in low position, wheels locked, side rails up per policy (excluding SNF),and non-skid footwear provided. Outcome: Progressing Problem: Fall Prevention Goal: Patient will remain free of falls Description Assess and monitor vitals signs, neurological status including level of consciousness and orientation. Reassess fall risk per hospital policy. Ensure arm band on, uncluttered walking paths in room, adequate room lighting, call light and overbed table within reach, bed in low position, wheels locked, side rails up per policy (excluding SNF),and non-skid footwear provided. Outcome: Progressing Problem: Psychosocial Needs Goal: Demonstrates ability to cope with hospitalization/illness Description Assess and monitor patients ability to cope with his/her illness. Outcome: Progressing * Plan of Care - Claudia Nobles RN - 06/27/2019 9:14 PM EST Review plan of care including provider roles, health history, IV and medications, labs and tests, and discharge planning documented in this encounter Plan of Treatment Upcoming Encounters Date Type Department Care Team (Late st Contact Info) Description 07/15/2024 9:00 AM EST Hospital Encounter [facility] Interventional Radiology [address] [place] [phone] Herve Carrillo MD [address] [facility] [place] [phone] documented as of this encounter Procedures Procedure Name Priority Date/Time Associated Diagnosis Comments EKG REPORT - SCAN 07/06/2019 3:2 2 PM EST POC GLU MONITORING DEVICE Routine 07/01/2019 1:44 PM EST POC GLU MONITORING DEVICE Routine 07/01/2019 10:20 AM EST RENAL FUNCTION PANEL W/EGFR Routine 07/01/2019 3:39 AM EST TACROLIMUS LEVEL Routine 07/01/2019 3:39 AM EST DIFFERENTIAL Routine 07/01/2019 3:39 AM EST CBC Routine 07/01/2019 3:39 AM EST POC GLU MONITORING DEVICE Routine 06/30/2019 10:21 PM EST POC GLU MONITORING DEVICE Routine 06/30/2019 8:12 PM EST POC GLU MONITORING DEVICE Routine 06/30/2019 5:44 PM EST POC GLU MONITORING DEVICE Routine 06/30/2019 12:56 PM EST POC GLU MONITORING DEVICE Routine 06/30/2019 9:26 AM EST PREPARE RBC, LEUKOREDUCED Routine 06/30/2019 6:15 AM EST RENAL FUNCTION PANEL W/EGFR Routine 06/30/2019 4:06 AM EST CBC Routine 06/30/2019 4:06 AM EST POC GLU MONITORING DEVICE Routine 06/29/2019 5:52 PM EST POC GLU MONITORING DEVICE Routine 06/29/2019 1:35 PM EST ANTIBODY IDENTIFICATION Routine 06/29/20 19 1:17 PM EST ELIUD ANTI-IGG Routine 06/29/2019 1:16 PM EST ABO/RH Routine 06/29/2019 10:40 AM EST ANTIBODY SCREEN Routine 06/29/2019 10:40 AM EST POC GLU MONITORING DEVICE Routine 06/29/2019 9:58 AM EST SLIDE REQUEST (MAKE SLIDE AND HOLD) Add-On 06/29/2019 5:44 AM EST CYTOMEGALOVIRUS DNA, QUANT, RT PCR Routine 06/29/2019 5:44 AM EST RETICULOCYTE COUNT, AUTO Add-On 06/29/2019 5:44 AM EST SERUM PROT ELECTROPHORESIS,RFX IT Routine 06/29/2019 5:44 AM EST HEPATIC FUNCTION PANEL Routine 9 5:44 AM EST RENAL FUNCTION PANEL W/EGFR Routine 06/29/2019 5:44 AM EST TACROLIMUS LEVEL Routine 06/29/2019 5:44 AM EST CBC Routine 06/29/2019 5:44 AM EST LACTATE DEHYDROGENASE Add-On 06/29/2019 5:44 AM EST HAPTOGLOBIN Add-On 06/29/2019 5:44 AM EST SURGICAL PATHOLOGY EXAM Routine 06/29/20 19 12:00 AM EST POC GLU MONITORING DEVICE Routine 06/28/2019 11:19 PM EST POC GLU MONITORING DEVICE Routine 06/28/2019 6:15 PM EST ENTERIC PATHOGEN PANEL Routine 9 5:07 PM EST CLOSTRIDIUM DIFFICILE DNA AMPLIFICATION Routine 06/28/2019 5:07 PM EST STOOL FOR WBC EIA Routine 06/28/2019 5:0 7 PM EST US RETROPERITONEAL COMPLETE Routine 06/28/2019 2:30 PM EST POC GLU MONITORING DEVICE Routine 06/28/2019 12:33 PM EST UREA NITROGEN, URINE Routine 06/28/2019 10:47 AM EST PROTEIN / CREATININE RATIO, URINE Routine 06/28/2019 10:47 AM EST SODIUM, URINE, RANDOM Routine 06/28/2019 10:47 AM EST POTASSIUM, URINE, RANDOM Routine 06/28/2019 10:47 AM EST CREATININE, URINE, RANDOM Routine 06/28/2019 10:47 AM EST CHLORIDE, URINE, RANDOM Routine 06/28/20 19 10:47 AM EST URINALYSIS W/RFL TO MICROSCOPIC STAT 06/28/2019 10:47 AM EST POC GLU MONITORING DEVICE Routine 06/28/2019 6:04 AM EST POC GLU MONITORING DEVICE Routine 06/28/2019 4:58 AM EST RENAL FUNCTION PANEL W/EGFR Routine 06/28/2019 4:27 AM EST TACROLIMUS LEVEL Timed 06/28/2019 4:27 AM EST DIFFERENTIAL Routine 06/28/2019 4:27 AM EST CBC Routine 06/28/2019 4:27 AM EST MAGNESIUM Routine 06/28/2019 4:27 AM EST POC GLU MONITORING DEVICE Routine 06/28/2019 4:04 AM EST POC GLU MONITORING DEVICE Routine 06/28/2019 3:04 AM EST POC GLU MONITORING DEVICE Routine 06/28/2019 1:43 AM EST POC GLU MONITORING DEVICE Routine 06/28/2019 12:34 AM EST LACTATE DEHYDROGENASE Routine 06/27/2019 11:25 PM EST HAPTOGLOBIN Routine 06/27/2019 11:25 PM EST ECG 12-LEAD (MUSE) STAT 06/27/2019 10 :23 PM EST HEPATIC FUNCTION PANEL STAT 9 9:08 PM EST LACTIC ACID STAT 06/27/2019 9:08 PM EST RENAL FUNCTION PANEL W/EGFR STAT 06/27/2019 9:08 PM EST CBC STAT 06/27/2019 9:08 PM EST documented in this encounter Results * EKG REPORT - SCAN (07/06/2019 3:22 PM EST) us Scanning [place] SCAN DOCS - NO RESULTS Final Res ult * (ABNORMAL) POC Glucose Monitoring Device (07/01/2019 1:44 PM EST) POC Glucose Monitoring Device 154(H) 70 - 100 mg/dL 07/01/2019 1:45 PM EST [facility] Blood specimen (specimen) 07/01/2019 1:44 PM EST 07/01/2019 1:45 PM EST us Attending Provider Unknown POINT OF CARE TEST OR DERABLES Final Result Performing Organization Address [facility] Co de Phone Number [facility] [address] [facility] * (ABNORMAL) POC Glucose Monitoring Device (07/01/2019 10:20 AM EST) POC Glucose Monitoring Device 136(H) 70 - 100 mg/dL 07/01/2019 10:21 AM EST [facility] Blood specimen (specimen) 07/01/2019 10:20 AM EST 07/01/2019 10:21 AM EST us Attending Provider Unknown POINT OF CARE TEST OR DERABLES Final Result Performing Organization Address [facility] Co de Phone Number [facility] [address] [facility] * (ABNORMAL) Tacrolimus level (07/01/2019 3:39 AM EST) Tacrolimus Lvl <2.0(L) 5.0 - 20.0 ng/mL 07/01/2019 10:28 AM EST [facility] Comment: Detection limit: ??2 ng/mL. ??Performed via chemiluminescent microparticle immunoassay on the [employer] i1000. Whole blood specimen (specimen) 07/01/2019 3:39 AM EST 07/01/2019 3:48 AM EST us Malinda Rhodes MD LAB BLOOD ORDERABLES Fi nal Result Performing Organization Address [facility] Co de Phone Number [facility] [address] [facility]. [address] * (ABNORMAL) Differential (07/01/2019 3:39 AM EST) Neutrophils Relative 57.8 40.0 - 80.0 % 07/01/2019 4:01 AM EST [facility] Lymphocytes Relative 25.4 15.0 - 45.0 % 07/01/2019 4:01 AM EST [facility] Monocytes Relative 12.4(H) 0.0 - 12.0 % 07/01/2019 4:01 AM EST [facility] Eosinophils Relative 4.0 0.0 - 8.0 % 07/01/2019 4:01 AM EST [facility] Basophils Relative 0.4 0.0 - 1.0 % 07/01/2019 4:01 AM EST [facility] nRBC 0 0 - 0 /100 WBC 07/01/2019 4:01 AM EST [facility] Neutrophils Absolute 1,329(L) 1,500 - 7,800 /uL 07/01/2019 4:01 AM [facility] Lymphocytes Absolute 584(L) 850 - 3,900 /uL 07/01/2019 4:01 AM EST [facility] Monocytes Absolute 285 200 - 950 /uL 07/01/2019 4:01 AM EST [facility] Eosinophils Absolute 92 15 - 500 /uL 07/01/2019 4:01 AM EST [facility] Basophils Absolute 9 0 - 200 /uL 07/01/2019 4:01 AM [facility] Whole blood specimen (specimen) 07/01/2019 3:39 AM EST 07/01/2019 3:48 AM EST us Malinda Rhodes MD LAB BLOOD ORDERABLES Fi nal Result [facility] [address] [place] [address], [facility] * (ABNORMAL) CBC, AM (07/01/2019 3:39 AM EST) WBC 2.3(L) 3.8 - 10.8 10E3/uL 07/01/2019 4:01 AM EST [facility] RBC 2.62(L) 4.20 - 5.80 10E6/uL 07/01/2019 4:01 AM EST [facility] Hemoglobin 7.1(L) 13.2 - 17.1 g/dL 07/01/2019 4:01 AM [facility] Hematocrit 22.1(L) 38.5 - 50.0 % 07/01/2019 4:01 AM EST [facility] MCV 84.1 80.0 - 100.0 fL 07/01/2019 4:01 AM EST [facility] MCH 26.9(L) 27.0 - 33.0 pg 07/01/2019 4:01 AM EST [facility] MCHC 32.0 32.0 - 36.0 g/dL 07/01/2019 4:01 AM [facility] RDW 14.1 11.0 - 15.0 % 07/01/2019 4:01 AM EST [facility] Platelets 147 140 - 400 10E3/uL 07/01/2019 4:01 AM [facility] MPV 6.8(L) 7.5 - 11.5 fL 07/01/2019 4:01 AM EST [facility] Whole blood specimen (specimen) 07/01/2019 3:39 AM EST 07/01/2019 3:48 AM EST us Malinda Rhodes MD LAB BLOOD ORDERABLES Fi nal Result [facility] [address] * (ABNORMAL) Renal Function Panel w/EGFR (07/01/2019 3:39 AM EST) Sodium 141 133 - 146 mmol/L 07/01/2019 4:16 AM [facility] Potassium 4.6 3.5 - 5.3 mmol/L 07/01/2019 4:16 AM [facility] Chloride 111(H) 98 - 110 mmol/L 07/01/2019 4:16 AM [facility] CO2 20(L) 21 - 33 mmol/L 07/01/2019 4:16 AM [facility] Anion Gap 10 3 - 16 mmol/L 07/01/2019 4:16 AM [facility] BUN 36(H) 7 - 25 mg/dL 07/01/2019 4:16 AM [facility] Creatinine 4.92(H) 0.60 - 1.30 mg/dL 07/01/2019 4:16 AM [facility] Glucose 114(H) 70 - 100 mg/dL 07/01/2019 4:16 AM [facility] Calcium 7.3(L) 8.6 - 10.3 mg/dL 07/01/2019 4:16 AM EST [facility] Phosphorus 4.6 2.1 - 4.7 mg/dL 07/01/2019 4:16 AM EST [facility] Albumin 2.9(L) 3.5 - 5.7 g/dL 07/01/2019 4:16 AM EST [facility] Osmolality, Calculated 301 278 - 305 mOsm/kg 07/01/2019 4:16 AM EST [facility] eGFR AA CKD-EPI 15 See note. 9 4:16 AM EST [facility] Comment: As of [...] equation to estimate glomerular filtration rate. ??[facility] 2009:150(9):604-12 eGFR NONAA CKD-EPI 13 See note. 2018 4:16 AM EST [facility] Comment: As of [...] equation to estimate glomerular filtration rate. ??[facility]. 2009:150(9):604-12 Plasma specimen (specimen) 07/01/2019 3:39 AM EST 07/01/2019 3:48 AM EST us Malinda Rhodes MD LAB BLOOD ORDERABLES Fi nal Result [facility] [address] [place] * (ABNORMAL) POC Glucose Monitoring Device (06/30/2019 10:21 PM EST) POC Glucose Monitoring Device 121(H) 70 - 100 mg/dL 06/30/2019 10:31 PM EST [facility] Blood specimen (specimen) 06/30/2019 10:21 PM EST 06/30/2019 10:31 PM EST us Attending Provider Unknown POINT OF CARE TEST OR DERABLES Final Result Performing Organization Address City/[facility] Co de Phone Number [facility] [address] [facility]. [address] * (ABNORMAL) POC Glucose Monitoring Device (06/30/2019 8:12 PM EST) POC Glucose Monitoring Device 159(H) 70 - 100 mg/dL 06/30/2019 8:29 PM EST [facility] Blood specimen (specimen) 06/30/2019 8:12 PM EST 06/30/2019 8:29 PM EST Attending Provider Unknown POINT OF CARE TEST OR DERABLES Final Result Performing Organization Address [facility] Co de Phone Number [facility] [address] [facility]. [address] * (ABNORMAL) POC Glucose Monitoring Device (06/30/2019 5:44 PM EST) POC Glucose Monitoring Device 139(H) 70 - 100 mg/dL 06/30/2019 5:45 PM EST [facility] Blood specimen (specimen) 06/30/2019 5:44 PM EST 06/30/2019 5:45 PM EST Attending Provider Unknown POINT OF CARE TEST OR DERABLES Final Result Performing Organization Address [facility] Co de Phone Number [facility] [address] [facility]. [address] * (ABNORMAL) POC Glucose Monitoring Device (06/30/2019 12:56 PM EST) POC Glucose Monitoring Device 127(H) 70 - 100 mg/dL 06/30/2019 12:57 PM EST [facility] Blood specimen (specimen) 06/30/2019 12:56 PM EST 06/30/2019 12:56 PM EST Attending Provider Unknown POINT OF CARE TEST OR DERABLES Final Result Performing Organization Address [facility] Co de Phone Number [facility] [address] * (ABNORMAL) POC Glucose Monitoring Device (06/30/2019 9:26 AM EST) POC Glucose Monitoring Device 104(H) 70 - 100 mg/dL 06/30/2019 9:29 AM EST [facility] Blood specimen (specimen) 06/30/2019 9:26 AM EST 06/30/2019 9:28 AM EST Attending Provider Unknown POINT OF CARE TEST OR DERABLES Final Result Performing Organization Address [facility] Co de Phone Number [facility] [address] [facility] * Prepare RBC, leukoreduced, 1 Units (06/30/2019 6:15 AM EST) Product Code [id number] HC[facility] Unit Number [id number] HCLL Dispense Status Presumed Transfused_PT HCLL Blood Expiration Date [id number] HCLL Coding System [id number] HCLL Specimen from blood bag from blood product (specimen) Robin Roberts MD BLOOD BANK PRODUCT ORDERAB LES Final Result Performing Organization Address [facility] de Phone Number HCLL * (ABNORMAL) Renal Function Panel w/EGFR (06/30/2019 4:06 AM EST) Sodium 141 133 - 146 mmol/L 06/30/2019 4:58 AM EST [facility] Potassium 4.9 3.5 - 5.3 mmol/L 06/30/2019 4:58 AM EST [facility] Chloride 110 98 - 110 mmol/L 06/30/2019 4:58 AM [facility] CO2 21 21 - 33 mmol/L 06/30/2019 4:58 AM [facility] Anion Gap 10 3 - 16 mmol/L 06/30/2019 4:58 AM [facility] BUN 38(H) 7 - 25 mg/dL 06/30/2019 4:58 AM [facility] Creatinine 4.54(H) 0.60 - 1.30 mg/dL 06/30/2019 4:58 AM [facility] Glucose 100 70 - 100 mg/dL 06/30/2019 4:58 AM [facility] Calcium 7.2(L) 8.6 - 10.3 mg/dL 06/30/2019 4:58 AM [facility] Phosphorus 4.3 2.1 - 4.7 mg/dL 06/30/2019 4:58 AM [facility] Albumin 3.2(L) 3.5 - 5.7 g/dL 06/30/2019 4:58 AM [facility] Osmolality, Calculated 301 278 - 305 mOsm/kg 06/30/2019 4:58 AM [facility] eGFR AA CKD-EPI 17 See note. 9 4:58 AM [facility] Comment: As of [...] equation to estimate glomerular filtration rate. ??[facility]. 2009:150(9):604-12 eGFR NONAA CKD-EPI 15 See note. 2018 4:58 AM [facility] Comment: As of [...] equation to estimate glomerular filtration rate. ??[facility]. 2009:150(9):604-12 Plasma specimen (specimen) 06/30/2019 4:06 AM EST 06/30/2019 4:22 AM EST us Robin Roberts MD LAB BLOOD ORDERABLES Final Result [facility] [address] [place] [address], [facility] * (ABNORMAL) CBC, AM (06/30/2019 4:06 AM EST) WBC 2.4(L) 3.8 - 10.8 10E3/uL 06/30/2019 4:34 AM EST [facility] RBC 2.72(L) 4.20 - 5.80 10E6/uL 06/30/2019 4:34 AM EST [facility] Hemoglobin 7.6(L) 13.2 - 17.1 g/dL 06/30/2019 4:34 AM EST [facility] Hematocrit 22.6(L) 38.5 - 50.0 % 06/30/2019 4:34 AM EST [facility] MCV 83.3 80.0 - 100.0 fL 06/30/2019 4:34 AM EST [facility] MCH 27.8 27.0 - 33.0 pg 06/30/2019 4:34 AM EST [facility] MCHC 33.4 32.0 - 36.0 g/dL 06/30/2019 4:34 AM EST [facility] RDW 14.6 11.0 - 15.0 % 06/30/2019 4:34 AM EST [facility] Platelets 150 140 - 400 10E3/uL 06/30/2019 4:34 AM EST [facility] MPV 7.0(L) 7.5 - 11.5 fL 06/30/2019 4:34 AM EST [facility] Whole blood specimen (specimen) 06/30/2019 4:06 AM EST 06/30/2019 4:22 AM EST Robin Roberts MD LAB BLOOD ORDERABLES Final Result Performing Organization Address [facility] Co de Phone Number [facility] [address] * Transfuse RBC (06/29/2019 7:18 PM EST) Robin Roberts MD NURSING TREATMENT ORDERABL ES - BLOOD ADMIN Final Result Performing Organization Address [facility] Co de Phone Number EXTERNAL * (ABNORMAL) POC Glucose Monitoring Device (06/29/2019 5:52 PM EST) POC Glucose Monitoring Device 134(H) 70 - 100 mg/dL 06/29/2019 5:52 PM EST [facility] Blood specimen (specimen) 06/29/2019 5:52 PM EST 06/29/2019 5:52 PM EST Attending Provider Unknown POINT OF CARE TEST OR DERABLES Final Result Performing Organization Address [facility] Co de Phone Number [facility] [address] [facility]. [address] * (ABNORMAL) POC Glucose Monitoring Device (06/29/2019 1:35 PM EST) POC Glucose Monitoring Device 213(H) 70 - 100 mg/dL 06/29/2019 1:36 PM EST [facility] Blood specimen (specimen) 06/29/2019 1:35 PM EST 06/29/2019 1:36 PM EST Attending Provider Unknown POINT OF CARE TEST OR DERABLES Final Result Performing Organization Address [facility] Co de Phone Number [facility] [address] [facility] * Antibody identification (06/29/2019 1:17 PM EST) Antibody Id. #1 Anti-C 06/29/2019 1:17 PM EST [facility] Antibody Id. #2 Anti-D 06/29/2019 1:17 PM EST [facility] Blood specimen (specimen) 06/29/2019 1:17 PM EST 06/29/2019 1:17 PM EST us Robin Roberts MD BLOOD BANK TEST ORDERABLES Final Result Performing Organization Address [facility]/ZIP Co de Phone Number [address] * ELIUD Anti-IgG (06/29/2019 1:16 PM EST) ELIUD IgG Negative 06/29/2019 1:16 PM EST [facility] Blood specimen (specimen) 06/29/2019 1:16 PM EST 06/29/2019 1:16 PM EST us Robin Roberts MD BLOOD BANK TEST ORDERABLES Final Result Performing Organization Address [facility] Co de Phone Number [address] * Antibody Screen (06/29/2019 10:40 AM EST) Antibody Screen Positive 06/29/2019 11:59 AM EST [facility] Blood specimen (specimen) 06/29/2019 10:40 AM EST 06/29/2019 11:03 AM EST Narrative [facility] - 06/29/2019 1:16 PM EST Testing performed by [facility] Transfusion Service us Robin Roberts MD BLOOD BANK TEST ORDERABLES Final Result Performing Organization Address City/[facility] Co de Phone Number [address] * ABO/Rh (06/29/2019 10:40 AM EST) ABO Grouping O 06/29/2019 11:48 AM EST [facility] Rh Type Negative 06/29/2019 11:48 AM EST [facility] Blood specimen (specimen) 06/29/2019 10:40 AM EST 06/29/2019 11:03 AM EST Robin Roberts MD BLOOD BANK TEST ORDERABLES Final Result Performing Organization Address [facility] Co de Phone Number [facility] [address] * (ABNORMAL) POC Glucose Monitoring Device (06/29/2019 9:58 AM EST) POC Glucose Monitoring Device 101(H) 70 - 100 mg/dL 06/29/2019 9:58 AM EST [facility] Blood specimen (specimen) 06/29/2019 9:58 AM EST 06/29/2019 9:58 AM EST us Attending Provider Unknown POINT OF CARE TEST OR DERABLES Final Result Performing Organization Address [facility] Co de Phone Number [facility] [address] * Reticulocyte Count, Auto (06/29/2019 5:44 AM EST) Retic Ct Pct 1.71 0.50 - 2.00 % 06/29/2019 1:47 PM EST [facility] Retic Ct Abs 41,553 25,000 - 90,000 /uL 06/29/2019 1:47 PM EST [facility] Immature Retic Fract 0.42 0.09 - 0.56 06/29/2019 1:47 PM EST [facility] Whole blood specimen (specimen) 06/29/2019 5:44 AM EST 06/29/2019 12:54 PM EST us Robin Roberts MD LAB BLOOD ORDERABLES Final Result Performing Organization Address [facility] Co de Phone Number [facility] [address] * Lactate dehydrogenase (06/29/2019 5:44 AM EST) LD 243 110 - 270 U/L 06/29/2019 1:14 PM EST [facility] Plasma specimen (specimen) 06/29/2019 5:44 AM EST 06/29/2019 12:51 PM EST Robin Roberts MD LAB BLOOD ORDERABLES Final Result Performing Organization Address [facility] Co de Phone Number [facility] [address] * Haptoglobin (06/29/2019 5:44 AM EST) Haptoglobin 179 44 - 215 mg/dL 06/29/2019 5:37 PM EST [facility] Serum specimen (specimen) 06/29/2019 5:44 AM EST 06/29/2019 12:51 PM EST Robin Roberts MD LAB BLOOD ORDERABLES Final Result Performing Organization Address [facility] Co de Phone Number [facility] [address] [facility] * Slide Request (Make Slide and Hold) (06/29/2019 5:44 AM EST) Slide Request Done 06/30/2019 2:12 AM EST [facility] Whole blood specimen (specimen) 06/29/2019 5:44 AM EST 06/29/2019 12:39 PM EST Narrative [facility] - 06/30/2019 2:12 AM EST Has a CBC been drawn today?->Yes - Order test as ADD-ON priority Hold slide for review by->Pathologist Robin Roberts MD LAB BLOOD ORDERABLES Final Result Performing Organization Address [facility] Co de Phone Number [facility] [address] [facility] * Cytomegalovirus DNA, Quant, Rt PCR (06/29/2019 5:44 AM EST) CMV DNA Qnt 321 IU/mL 07/02/2019 5:23 PM EST [facility] Comment:Test methodology for CMV quantification is an FDA-approved nucleic acid amplification assay. The Lower Limit of Quantitation (LLOQ) is 137 IU/mL; the linear range is 137- 9,100,000 IU/mL. The limit of Detection is (LoD) is 91 IU/mL. Log10 CMV Qn DNA PI 2.51 log 10 IU/mL 07/02/2019 5:23 PM EST [facility] Comment:CMV DNA has been det ected. Plasma specimen (specimen) 06/29/2019 5:44 AM EST 06/29/2019 9:50 AM EST Robin Roberts MD LAB BLOOD ORDERABLES Final Result Performing Organization Address [facility]/ZIP Co de Phone Number [facility] [address] [facility] * (ABNORMAL) Hepatic Function Panel, AM (06/29/2019 5:44 AM EST) Total Bilirubin 0.2 0.0 - 1.5 mg/dL 06/29/2019 6:38 AM EST [facility] Bilirubin, Direct 0.04 0.00 - 0.40 mg/dL 06/29/2019 6:38 AM [facility] AST 12(L) 13 - 39 U/L 06/29/2019 6:38 AM [facility] ALT 11 7 - 52 U/L 06/29/2019 6:38 AM [facility] Alkaline Phosphatase 113 36 - 125 U/L 06/29/2019 6:38 AM [facility] Total Protein 5.4(L) 6.4 - 8.9 g/dL 06/29/2019 6:38 AM [facility] Albumin 3.2(L) 3.5 - 5.7 g/dL 06/29/2019 6:38 AM [facility] Bilirubin, Indirect 0.16 0.00 - 1.10 mg/dL 06/29/2019 6:38 AM EST [facility] Plasma specimen (specimen) 06/29/2019 5:44 AM EST 06/29/2019 6:09 AM EST Robin Roberts MD LAB BLOOD ORDERABLES Final Result Performing Organization Address City/[facility]/ZIP Co de Phone Number [facility] [address] [facility] * (ABNORMAL) Renal Function Panel w/EGFR (06/29/2019 5:44 AM EST) Sodium 141 133 - 146 mmol/L 06/29/2019 6:38 AM [facility] Potassium 4.8 3.5 - 5.3 mmol/L 06/29/2019 6:38 AM [facility] Chloride 112(H) 98 - 110 mmol/L 06/29/2019 6:38 AM [facility] CO2 19(L) 21 - 33 mmol/L 06/29/2019 6:38 AM [facility] Anion Gap 10 3 - 16 mmol/L 06/29/2019 6:38 AM [facility] BUN 40(H) 7 - 25 mg/dL 06/29/2019 6:38 AM [facility] Creatinine 4.75(H) 0.60 - 1.30 mg/dL 06/29/2019 6:38 AM [facility] Glucose 86 70 - 100 mg/dL 06/29/2019 6:38 AM [facility] Calcium 7.1(L) 8.6 - 10.3 mg/dL 06/29/2019 6:38 AM [facility] Phosphorus 4.1 2.1 - 4.7 mg/dL 06/29/2019 6:38 AM [facility] Albumin 3.2(L) 3.5 - 5.7 g/dL 06/29/2019 6:38 AM [facility] Osmolality, Calculated 301 278 - 305 mOsm/kg 06/29/2019 6:38 AM [facility] eGFR AA CKD-EPI 16 See note. 9 6:38 AM [facility] Comment: As of [...] equation to estimate glomerular filtration rate. ??[facility]. 2009:150(9):604-12 eGFR NONAA CKD-EPI 14 See note. 2018 6:38 AM [facility] Comment: As of [...] equation to estimate glomerular filtration rate. ??[facility]. 2009:150(9):604-12 Plasma specimen (specimen) 06/29/2019 5:44 AM EST 06/29/2019 6:09 AM EST us Robin Roberts MD LAB BLOOD ORDERABLES Final Result [facility] [address] * (ABNORMAL) CBC, AM (06/29/2019 5:44 AM EST) WBC 2.2(L) 3.8 - 10.8 10E3/uL 06/29/2019 6:16 AM EST [facility] RBC 2.46(L) 4.20 - 5.80 10E6/uL 06/29/2019 6:16 AM EST [facility] Hemoglobin 6.8(L) 13.2 - 17.1 g/dL 06/29/2019 6:16 AM EST [facility] Hematocrit 21.0(L) 38.5 - 50.0 % 06/29/2019 6:16 AM EST [facility] MCV 85.3 80.0 - 100.0 fL 06/29/2019 6:16 AM EST [facility] MCH 27.5 27.0 - 33.0 pg 06/29/2019 6:16 AM EST [facility] MCHC 32.2 32.0 - 36.0 g/dL 06/29/2019 6:16 AM EST [facility] RDW 13.9 11.0 - 15.0 % 06/29/2019 6:16 AM EST [facility] Platelets 152 140 - 400 10E3/uL 06/29/2019 6:16 AM EST [facility] MPV 6.8(L) 7.5 - 11.5 fL 06/29/2019 6:16 AM EST [facility] Whole blood specimen (specimen) 06/29/2019 5:44 AM EST 06/29/2019 6:09 AM EST us Robin Roberts MD LAB BLOOD ORDERABLES Final Result [facility] [address] [place] [address], [facility] * (ABNORMAL) Serum Prot Electrophoresis w/Free Lt Chains, Reflex to IT (06/29/2019 5:44 AM EST) IgG 576.0(L) 700.0 - 1,600.0 mg/dL 07/03/2019 9:40 AM [facility] Comment: Effective 05/08/2019, the reference ranges for the immunoglobulin quantitations (IGG, IGM, and IGA) have been modified with the implementation of the Binding Site Optilite technology. IgM 52.5 40.0 - 230.0 mg/dL 07/03/2019 9:40 AM [facility] Comment: Effective 05/08/2019, the reference ranges for the immunoglobulin quantitations (IGG, IGM, and IGA) have been modified with the implementation of the Binding Site Optilite technology. Albumin, Protein Electrophoresis 3.2(L) 3.70 - 4.90 g/dL 07/03/2019 9:40 AM [facility] IgA 233.0 70.0 - 400.0 mg/dL 07/03/2019 9:40 AM [facility] Comment: Effective 05/08/2019, the reference ranges for the immunoglobulin quantitations (IGG, IGM, and IGA) have been modified with the implementation of the Binding Site Optilite technology. Alpha 1 0.4 0.20 - 0.40 g/dL 07/03/2019 9:40 AM [facility] [place] 122.3(H) 3.3 - 19.4 mg/L 07/03/2019 9:40 AM [facility] Comment: Effective 04/25/2019, [facility] began testing serum free light chains using the Binding Site Optilite technology. Free kappa light chain values may increase by approximately 50% as a consequence of this change. For additional consultation, please contact the clinical pathology consultation service at [phone] ([phone]). Alpha 2 0.8 0.50 - 1.00 g/dL 07/03/2019 9:40 AM EST [facility] Lambda 66.3(H) 5.7 - 26.3 mg/L 07/03/2019 9:40 AM [facility] Beta 0.7 0.60 - 1.00 g/dL 07/03/2019 9:40 AM [facility] Gamma Globulin 0.6 0.50 - 1.50 g/dL 07/03/2019 9:40 AM [facility] [place]/Lambda Ratio 1.84(H) 0.26 - 1.65 ratio 07/03/2019 9:40 AM EST [facility] Total Protein (PE) 5.6(L) 6.4 - 8.9 g/dL 06/29/2019 5:37 PM EST [facility] M Corey 0.0 g/dL 07/03/2019 9:40 AM [facility] Interpretation (PE) See Note 07/03 9:40 AM [facility] Comment:Normal immunofixatio n. No monoclonal proteins detected. Reviewed by Tamar Castillo M.D. Serum specimen (specimen) 06/29/2019 5:44 AM EST 06/29/2019 6:09 AM EST us Robin Roberts MD LAB BLOOD ORDERABLES Final Result [facility] [address] * (ABNORMAL) Tacrolimus level (06/29/2019 5:44 AM EST) Tacrolimus Lvl <2.0(L) 5.0 - 20.0 ng/mL 06/29/2019 1:45 PM EST [facility] Comment: Detection limit: ??2 ng/mL. ??Performed via chemiluminescent microparticle immunoassay on the [employer] i1000. Whole blood specimen (specimen) 06/29/2019 5:44 AM EST 06/29/2019 6:09 AM EST Maru Haines MD LAB BLOOD ORDERABLES Final Resu lt [facility] [address] [facility] [place] [address], [facility] * Surgical Pathology Exam (06/29/2019 12:00 AM EST) 06/29/2019 07/01/2019 Narrative [facility] - 06/29/2019 12:00 AM EST CASE: [id number] PATIENT: LEONCIO ROLLINS Clinical History: ?? None Given Pre-Operative Diagnosis: None Given Post-Operative Diagnosis: ? None Given Specimen(s) Submitted: ?? A. 1 curtis stained peripheral blood smear CPT Code(s): ?? 39316 X 1 Additional Information: FINAL DIAGNOSIS: Peripheral blood smear: - Normocytic anemia. - Leukopenia with absolute neutropenia. - See comment. Comment: Normocytic anemia can be seen in cases of early iron, B12 or folate deficiency, anemia of chronic disease, drug/medication effect, and hemolysis or blood loss, among others. Leukopenia can be seen in variety of cases but not limited to infectious/inflammatory conditions, drug/medication effect, bone marrow failure and neoplastic process. ??No significant dyspoiesis or evidence of a neoplastic process identified. Clinical and laboratory correlation is recommended for full evaluation. MA/PA Gross Description: Received at the request of ??Robin Lima is one Curtis-stained peripheral blood smear labeled Leoncio Rollins . ??(Latonya Tolliver MD (Resident)/se) Microscopic Description: Complete blood count was performed at [facility] on 06/29/2019. White blood cells 2.2 K/uL, red blood cells 2.46 mil/uL, hemoglobin 6.8 g/dL, hematocrit 21.0%, MCV 85.3 fL, RDW 13.9%, platelets 152 K/uL Electronic differential shows 57.8% neutrophils, 25.4% lymphocytes, 12.4% monocytes, 4% eosinophils, and 0.4% basophils. Leukocytes: ?Decreased in number with absolute neutropenia. ??No significant dyspoiesis or circulating blasts identified. Erythrocytes: ??Normocytic anemia with anisopoikilocytosis and rare teardrop cells. Platelets: ? Adequate in number with occasional large forms. I, the attending pathologist, have personally reviewed all prosector/resident work and pathology slides to determine final diagnosis. Final Diagnosis performed by TAMAR CASTILLO M.D. Pathologist Electronically signed 07/04/2019 03:56:21 PM The Pathologist signing this report is located at [facility], [address] [place] [address], [facility], , CLIA ID: [id number] Malinda Rhodes MD PATHOLOGY/CYTOLOGY ORDPravin [place] Final Result Performing Organization Address [facility] Co de Phone Number [facility] * (ABNORMAL) POC Glucose Monitoring Device (06/28/2019 11:19 PM EST) POC Glucose Monitoring Device 117(H) 70 - 100 mg/dL 06/28/2019 11:20 PM EST [facility] Blood specimen (specimen) 06/28/2019 11:19 PM EST 06/28/2019 11:20 PM EST us Attending Provider Unknown POINT OF CARE TEST OR DERABLES Final Result Performing Organization Address [facility] Co de Phone Number [facility] [address] [facility]. [address] * (ABNORMAL) POC Glucose Monitoring Device (06/28/2019 6:15 PM EST) POC Glucose Monitoring Device 107(H) 70 - 100 mg/dL 06/28/2019 6:17 PM EST [facility] Blood specimen (specimen) 06/28/2019 6:15 PM EST 06/28/2019 6:16 PM EST Attending Provider Unknown POINT OF CARE TEST OR DERABLES Final Result Performing Organization Address City/[facility]/ZIP Co de Phone Number [facility] [address] [facility]. [address] * Enteric Pathogen Panel (06/28/2019 5:07 PM EST) Campylobacter Group (C. ecoli, C. jejuni, C. angie) Not Detected Not Detected 06/28/2019 10:46 PM EST [facility] Salmonella species Not Detected Not Detected 06/28/2019 10:46 PM EST [facility] Shigella species Not Detected Not Detected 06/28/2019 10:46 PM EST [facility] Vibrio Group (Vibrio cholerae, Vibrio parahaemolyticus) Not Detected Not Detected 06/28/2019 10:46 PM EST [facility] Yersinia enterocolitica Not Detected Not Detected 06/28/2019 10:46 PM EST [facility] Shiga toxin 1 Not Detected Not Detected 06/28/2019 10:46 PM EST [facility] Shiga toxin 2 Not Detected Not Detected 06/28/2019 10:46 PM EST [facility] Norovirus Not Detected Not Detected 06/28/2019 10:46 PM EST [facility] Rotavirus Not Detected Not Detected 06/28/2019 10:46 PM EST [facility] Comment: The Enteric Pathogen Panel is an FDA-approved nucleic acid amplification test that detects 2 different viral targets and 7 bacterial targets in stool specimens. This assay does not test for Aeromonas and Pleisomonas, which may be potential enteric pathogens. If testing for these organisms is warranted, please contact the Microbiology laboratory. Negative results do not rule out the presence of viral, bacterial, or parasitic infections. ??Infections with more than a single agent have been reported. For further information, call the micro laboratory. Stool specimen (specimen) FECES / Unknown 06/28/2019 5:07 PM EST 06/28/2019 6:18 PM EST Comment:F us Robin Roberts MD BODY FLUIDS AND STOOLS ORD ERABLES Final Result [facility] [address] * Stool For WBC EIA (06/28/2019 5:07 PM EST) White Blood Cells (WBC), Stool Negative Negative 06/28/2019 11:08 PM EST [facility] Comment:A negative result in dicates the absence of fecal lactoferrin. Stool specimen (specimen) FECES / Unknown 06/28/2019 5:07 PM EST 06/28/2019 6:17 PM EST Comment:F Robin Roberts MD BODY FLUIDS AND STOOLS ORD ERABLES Final Result Performing Organization Address [facility] de Phone Number [facility] [address] [place] [address] * Clostridium difficile DNA Amplification (06/28/2019 5:07 PM EST) Clost. Diff DNA Amp. Negative Negative 06/28/2019 10:13 PM EST [facility] Comment:Positive indicates t oxigenic C. difficile was detected in the sample. Negative indicates that toxigenic C. difficile was not detected above the limit of the detection of the assay. The test methodology is a FDA approved DNA amplification assay. Stool specimen (specimen) FECES / Unknown 06/28/2019 5:07 PM EST 06/28/2019 6:17 PM EST Comment:F Robin Roberts MD BODY FLUIDS AND STOOLS ORD ERABLES Final Result Performing Organization Address [facility] de Phone Number [facility] [address] [place] [address] * US Retroperitoneal complete (06/28/2019 2:30 PM EST) Anatomical Region Laterality Modality Abdomen Ultrasound 06/28/2019 2:27 PM EST Impressions 06/28/2019 4:36 PM EST IMPRESSION: Normal renal ultrasound. Approved by Jimmy Velasquez MD on 06/28/2019 3:29 PM EST I have personally reviewed the images and I agree with this report. Report Verified by: Lion Mike MD at 06/28/2019 4:36 PM EST Narrative 06/28/2019 4:36 PM EST EXAM: US RETROPERITONEAL COMPLETE INDICATION: ??CARMEN on CKD, COMPARISON: ??Abdominal ultrasound dated 01/12/2019 TECHNIQUE: Grayscale and color Doppler imaging acquisition was performed for evaluation of the kidneys and urinary bladder. FINDINGS: Right Kidney: 9.9 x 5.3 x 5.1 cm. There is no hydronephrosis. Normal ??echogenicity. No masses or calculi are appreciated. Left Kidney: 10.4 x 5.6 x 5.7 cm. There is no hydronephrosis. Normal echogenicity. No masses or calculi are appreciated. Bladder: Evaluation of the bladder is limited, but is grossly unremarkable. Other: None Procedure Note Lion Mike MD - 06/28/2019 EXAM: US RETROPERITONEAL COMPLETE INDICATION: CARMEN on CKD, COMPARISON: Abdominal ultrasound dated 01/12/2019 TECHNIQUE: Grayscale and color Doppler imaging acquisition was performedfor evaluation of the kidneys and urinary bladder. FINDINGS: Right Kidney: 9.9 x 5.3 x 5.1 cm. There is no hydronephrosis. Normalechogenicity. No masses or calculi are appreciated. Left Kidney: 10.4 x 5.6 x 5.7 cm. There is no hydronephrosis. Normalechogenicity. No masses or calculi are appreciated. Bladder: Evaluation of the bladder is limited, but is grosslyunremarkable. Other: None IMPRESSION: Normal renal ultrasound. Approved by Jimmy Velasquez MD on 06/28/2019 3:29 PM EST I have personally reviewed the images and I agree with this report. Report Verified by: Lion Mike MD at 06/28/2019 4:36 PM EST Robin Roberts MD [facility] US ORDERABLES Final Re sult * (ABNORMAL) POC Glucose Monitoring Device (06/28/2019 12:33 PM EST) POC Glucose Monitoring Device 150(H) 70 - 100 mg/dL 06/28/2019 12:38 PM EST [facility] Blood specimen (specimen) 06/28/2019 12:33 PM EST 06/28/2019 12:38 PM EST us Attending Provider Unknown POINT OF CARE TEST OR DERABLES Final Result [facility] [address] * Chloride, urine, random (06/28/2019 10:47 AM EST) Chloride, Ur 77 mmol/L 06/28/2019 11:13 AM EST [facility] Comment:Reference range not established for this test. Urine specimen (specimen) 06/28/2019 10:47 AM EST 06/28/2019 10:51 AM EST us Aydin Barber MD URINE ORDERABLES Yoselin l Result [facility] [address] * Potassium, urine, random (06/28/2019 10:47 AM EST) Potassium Urine Random 33.0 mmol/L 06/28/2019 11:13 AM EST [facility] Comment:Reference range not established for this test. Urine specimen (specimen) 06/28/2019 10:47 AM EST 06/28/2019 10:51 AM EST us Aydin Barber MD URINE ORDERABLES Yoselin l Result [facility] [address] * Sodium, urine, random (06/28/2019 10:47 AM EST) Sodium, Ur 74 mmol/L 06/28/2019 11:13 AM EST [facility] Comment:Reference range not established for this test. Urine specimen (specimen) 06/28/2019 10:47 AM EST 06/28/2019 10:51 AM EST us Aydin Barber MD URINE ORDERABLES Yoselin l Result [facility] [address] [facility]. [address] * Protein / Creatinine Ratio, Urine (06/28/2019 10:47 AM EST) Creatinine, Urine 116.40 mg/dL 06/28/2019 11:12 AM EST [facility] Comment:Reference range not established for this test. Total Protein, Ur 774 mg/dL 06/28/2019 11:29 AM EST [facility] Comment:Reference range not established for this test. Prot/Creat Ratio, Ur 6.65 ratio 06/28/2019 11:29 AM EST [facility] Urine specimen (specimen) 06/28/2019 10:47 AM EST 06/28/2019 10:51 AM EST us Nora Velez MD URINE ORDERABLES Final Result Performing Organization Address [facility]/ZIP Co de Phone Number [facility] [address] [place] [address] * Urea nitrogen, random urine (06/28/2019 10:47 AM EST) Urea Nitrogen, Ur 470 Not Estab. mg/dL 06/29/2019 4:30 AM EST [facility] Urine specimen (specimen) 06/28/2019 10:47 AM EST 06/29/2019 5:06 AM EST Narrative [facility] - 06/29/2019 5:06 AM EST PERFORMED AT: [facility] [id number] HOST COORDINATOR: Octavio Best, PhD ?? PHONE: [phone] us Aydin Barber MD URINE ORDERABLES Yoselin l Result [facility] [address] [place] [address] * Creatinine, urine, random (06/28/2019 10:47 AM EST) Creatinine, Urine 116.30 mg/dL 06/28/2019 11:13 AM EST [facility] Comment:Reference range not established for this test. Urine specimen (specimen) 06/28/2019 10:47 AM EST 06/28/2019 10:51 AM EST Aydin Barber MD URINE ORDERABLES Yoselin robles Result [facility] [address] [place] [address], [facility] * (ABNORMAL) Urinalysis w/ Reflex to Microscopic, No Culture (06/28/2019 10:47 AM EST) Color, UA Yellow Yellow,Straw 06/28/2019 11:19 AM [facility] Clarity, UA Clear Clear 06/28/2019 11:19 AM [facility] Specific [place], UA 1.015 1.005 - 1.035 06/28/2019 11:19 AM [facility] pH, UA 5.0 5.0 - 8.0 06/28/2019 11:19 AM [facility] Protein, UA >=500(A) Negative mg/dL 06/28/2019 11:19 AM [facility] Glucose, UA 150(A) Negative mg/dL 06/28/2019 11:19 AM [facility] Ketones, UA Negative Negative mg/dL 06/28/2019 11:19 AM [facility] Bilirubin, UA Negative Negative 06/28/2019 11:19 AM [facility] Blood, UA Small(A) Negative 06/28/2019 11:19 AM [facility] Nitrite, UA Negative Negative 06/28/2019 11:19 AM [facility] Urobilinogen, UA <2.0 0.2 - 1.9 mg/dL 06/28/2019 11:19 AM [facility] Leukocyte Esterase, UA Negative Negative 06/28/2019 11:19 AM [facility] RBC, UA <1 0 - 3 /HPF 06/28/2019 11:19 AM [facility] WBC, UA 2 0 - 5 /HPF 06/28/2019 11:19 AM [facility] Squam Epithel, UA <1 0 - 5 /HPF 06/28/2019 11:19 AM [facility] Bacteria, UA Rare(A) None Seen /HPF 06/28/2019 11:19 AM [facility] Hyaline Casts, UA 1 0 - 2 /LPF 06/28/2019 11:19 AM EST [facility] Mucus, UA Present(A) None Seen /HPF 06/28/2019 11:19 AM EST [facility] Urine specimen (specimen) 06/28/2019 10:47 AM EST 06/28/2019 10:51 AM EST Aydin Barber MD URINE ORDERABLES Yoselin l Result Performing Organization Address City/[facility]/ZIP Co de Phone Number [facility] [address] [facility]. [address] * (ABNORMAL) POC Glucose Monitoring Device (06/28/2019 6:04 AM EST) POC Glucose Monitoring Device 140(H) 70 - 100 mg/dL 06/28/2019 6:05 AM EST [facility] Blood specimen (specimen) 06/28/2019 6:04 AM EST 06/28/2019 6:05 AM EST us Attending Provider Unknown POINT OF CARE TEST OR DERABLES Final Result Performing Organization Address [facility] Co de Phone Number [facility] [address] [facility] * (ABNORMAL) POC Glucose Monitoring Device (06/28/2019 4:58 AM EST) POC Glucose Monitoring Device 166(H) 70 - 100 mg/dL 06/28/2019 5:08 AM EST [facility] Blood specimen (specimen) 06/28/2019 4:58 AM EST 06/28/2019 5:08 AM EST us Attending Provider Unknown POINT OF CARE TEST OR DERABLES Final Result Performing Organization Address [facility] Co de Phone Number [facility] [address] [place] [address]. [address] * (ABNORMAL) Tacrolimus level (06/28/2019 4:27 AM EST) Tacrolimus Lvl <2.0(L) 5.0 - 20.0 ng/mL 06/28/2019 11:02 AM EST [facility] Comment: Detection limit: ??2 ng/mL. ??Performed via chemiluminescent microparticle immunoassay on the [employer] i1000. Whole blood specimen (specimen) 06/28/2019 4:27 AM EST 06/28/2019 5:22 AM EST Aydin Barber MD LAB BLOOD ORDERABLES Final Result Performing Organization Address City/[facility]/ZIP Co de Phone Number [facility] [address] * Magnesium (06/28/2019 4:27 AM EST) Magnesium 1.8 1.5 - 2.5 mg/dL 06/28/2019 5:52 AM EST [facility] Plasma specimen (specimen) 06/28/2019 4:27 AM EST 06/28/2019 5:22 AM EST Aydin Barber MD LAB BLOOD ORDERABLES Final Result Performing Organization Address [facility] de Phone Number [facility] [address] * (ABNORMAL) Renal Function Panel w/EGFR (06/28/2019 4:27 AM EST) Sodium 140 133 - 146 mmol/L 06/28/2019 5:52 AM [facility] Potassium 5.5(H) 3.5 - 5.3 mmol/L 06/28/2019 5:52 AM [facility] Chloride 113(H) 98 - 110 mmol/L 06/28/2019 5:52 AM [facility] CO2 20(L) 21 - 33 mmol/L 06/28/2019 5:52 AM [facility] Anion Gap 7 3 - 16 mmol/L 06/28/2019 5:52 AM [facility] BUN 44(H) 7 - 25 mg/dL 06/28/2019 5:52 AM [facility] Creatinine 4.59(H) 0.60 - 1.30 mg/dL 06/28/2019 5:52 AM [facility] Glucose 164(H) 70 - 100 mg/dL 06/28/2019 5:52 AM EST [facility] Calcium 7.6(L) 8.6 - 10.3 mg/dL 06/28/2019 5:52 AM EST [facility] Phosphorus 4.0 2.1 - 4.7 mg/dL 06/28/2019 5:52 AM EST [facility] Albumin 3.3(L) 3.5 - 5.7 g/dL 06/28/2019 5:52 AM EST [facility] Osmolality, Calculated 305 278 - 305 mOsm/kg 06/28/2019 5:52 AM EST [facility] eGFR AA CKD-EPI 17 See note. 9 5:52 AM EST [facility] Comment: As of [...] equation to estimate glomerular filtration rate. ??[facility] 2009:150(9):604-12 eGFR NONAA CKD-EPI 14 See note. 2018 5:52 AM EST [facility] Comment: As of [...] equation to estimate glomerular filtration rate. ??[facility] 2009:150(9):604-12 Plasma specimen (specimen) 06/28/2019 4:27 AM EST 06/28/2019 5:22 AM EST us Aydin Barber MD LAB BLOOD ORDERABLES Final Result [facility] [address] [place] [address], [facility] * (ABNORMAL) Differential (06/28/2019 4:27 AM EST) Myelocytes Relative 2.0(H) 0.0 - 0.0 % 06/28/2019 6:56 AM EST [facility] Neutrophils Relative 67.6 40.0 - 80.0 % 06/28/2019 6:56 AM EST [facility] Lymphocytes Relative 20.6 15.0 - 45.0 % 06/28/2019 6:56 AM EST [facility] Monocytes Relative 6.9 0.0 - 12.0 % 06/28/2019 6:56 AM EST [facility] Eosinophils Relative 2.9 0.0 - 8.0 % 06/28/2019 6:56 AM EST [facility] Basophils Relative 0.0 0.0 - 1.0 % 06/28/2019 6:56 AM EST [facility] Neutrophils Absolute 1,555 1,500 - 7,800 /uL 06/28/2019 6:56 AM EST [facility] Myelocytes Absolute 46(H) 0 - 0 /uL 06/28/2019 6:56 AM EST [facility] Lymphocytes Absolute 474(L) 850 - 3,900 /uL 06/28/2019 6:56 AM EST [facility] Monocytes Absolute 159(L) 200 - 950 /uL 06/28/2019 6:56 AM EST [facility] Eosinophils Absolute 67 15 - 500 /uL 06/28/2019 6:56 AM EST [facility] Basophils Absolute 0 0 - 200 /uL 06/28/2019 6:56 AM EST [facility] RBC Morphology Normal 06/28/2019 6:56 AM EST [facility] PLT Morphology Platelet morphology appears normal 06/28/2019 6:56 AM EST [facility] Whole blood specimen (specimen) 06/28/2019 4:27 AM EST 06/28/2019 5:22 AM EST Aydin Barber MD LAB BLOOD ORDERABLES Final Result [facility] [address] [place] [address], [facility] * (ABNORMAL) CBC (06/28/2019 4:27 AM EST) WBC 2.3(L) 3.8 - 10.8 10E3/uL 06/28/2019 5:32 AM EST [facility] RBC 2.57(L) 4.20 - 5.80 10E6/uL 06/28/2019 5:32 AM EST [facility] Hemoglobin 7.1(L) 13.2 - 17.1 g/dL 06/28/2019 5:32 AM [facility] Hematocrit 21.8(L) 38.5 - 50.0 % 06/28/2019 5:32 AM [facility] MCV 85.1 80.0 - 100.0 fL 06/28/2019 5:32 AM EST [facility] MCH 27.6 27.0 - 33.0 pg 06/28/2019 5:32 AM [facility] MCHC 32.5 32.0 - 36.0 g/dL 06/28/2019 5:32 AM [facility] RDW 14.1 11.0 - 15.0 % 06/28/2019 5:32 AM [facility] Platelets 176 140 - 400 10E3/uL 06/28/2019 5:32 AM [facility] MPV 7.1(L) 7.5 - 11.5 fL 06/28/2019 5:32 AM [facility] Whole blood specimen (specimen) 06/28/2019 4:27 AM EST 06/28/2019 5:22 AM EST us Aydin Barber MD LAB BLOOD ORDERABLES Final Result [facility] [address] [facility] [place] [address], [facility] * (ABNORMAL) POC Glucose Monitoring Device (06/28/2019 4:04 AM EST) POC Glucose Monitoring Device 198(H) 70 - 100 mg/dL 06/28/2019 4:07 AM EST [facility] Blood specimen (specimen) 06/28/2019 4:04 AM EST 06/28/2019 4:07 AM EST us Attending Provider Unknown POINT OF CARE TEST OR DERABLES Final Result Performing Organization Address [facility] Co de Phone Number [facility] [address] * (ABNORMAL) POC Glucose Monitoring Device (06/28/2019 3:04 AM EST) POC Glucose Monitoring Device 204(H) 70 - 100 mg/dL 06/28/2019 3:08 AM EST [facility] Blood specimen (specimen) 06/28/2019 3:04 AM EST 06/28/2019 3:08 AM EST Attending Provider Unknown POINT OF CARE TEST OR DERABLES Final Result Performing Organization Address [facility] Co de Phone Number [facility] [address] [facility]. [address] * (ABNORMAL) POC Glucose Monitoring Device (06/28/2019 1:43 AM EST) POC Glucose Monitoring Device 198(H) 70 - 100 mg/dL 06/28/2019 1:43 AM EST [facility] Blood specimen (specimen) 06/28/2019 1:43 AM EST 06/28/2019 1:43 AM EST Attending Provider Unknown POINT OF CARE TEST OR DERABLES Final Result Performing Organization Address [facility] Co de Phone Number [facility] [address] * (ABNORMAL) POC Glucose Monitoring Device (06/28/2019 12:34 AM EST) POC Glucose Monitoring Device 184(H) 70 - 100 mg/dL 06/28/2019 12:35 AM EST [facility] Blood specimen (specimen) 06/28/2019 12:34 AM EST 06/28/2019 12:35 AM EST us Attending Provider Unknown POINT OF CARE TEST OR DERABLES Final Result Performing Organization Address [facility]/ZIP Co de Phone Number [facility] [address] [facility]. [address] * Lactate dehydrogenase (06/27/2019 11:25 PM EST) LD 223 110 - 270 U/L 06/28/2019 12:05 AM EST [facility] Plasma specimen (specimen) 06/27/2019 11:25 PM EST 06/27/2019 11:35 PM EST Aydin Barber MD LAB BLOOD ORDERABLES Final Result Performing Organization Address [facility] Co de Phone Number [facility] [address] [facility]. [address] * Haptoglobin (06/27/2019 11:25 PM EST) Pathologist [facility] Haptoglobin 186 44 - 215 mg/dL 06/28/2019 12:05 AM EST [facility] Serum specimen (specimen) 06/27/2019 11:25 PM EST 06/27/2019 11:36 PM EST Aydin Barber MD LAB BLOOD ORDERABLES Final Result Performing Organization Address [facility] Co de Phone Number [facility] [address] [facility]. [address] * ECG 12 lead (MUSE) (06/27/2019 10:23 PM EST) 06/27/2019 10:2 3 PM EST Narrative MUSE - 06/28/2019 9:50 PM EST Ventricular Rate: ??71 ??BPM Atrial Rate: ??71 ??BPM P-R Interval: ??178 ??ms QRS Duration: ??96 ??ms QT: ??406 ??ms QTc: ??441 ??ms P [place]: ??24 ??degrees R [place]: ??66 ??degrees T [place]: ??87 ??degrees Diagnosis Line: ??NORMAL SINUS RHYTHM ^ NORMAL ECG ^ COMPARED TO THE ECG OF 05-JUN-2018 12:14, ^ ST NO LONGER ELEVATED IN INFERIOR LEADS ^ NONSPECIFIC T WAVE CHANGE NO LONGER EVIDENT IN INFERIOR LEADS ^ Confirmed by Carlo PEREZ TEHMINA ([id number]) on 06/28/2019 9:50:07 PM Aydin Barber MD ECG ORDERABLES Final Result [facility]USE * (ABNORMAL) CBC (06/27/2019 9:08 PM EST) WBC 2.4(L) 3.8 - 10.8 10E3/uL 06/27/2019 9:25 PM EST [facility] RBC 2.61(L) 4.20 - 5.80 10E6/uL 06/27/2019 9:25 PM EST [facility] Hemoglobin 7.2(L) 13.2 - 17.1 g/dL 06/27/2019 9:25 PM EST [facility] Hematocrit 22.6(L) 38.5 - 50.0 % 06/27/2019 9:25 PM EST [facility] MCV 86.4 80.0 - 100.0 fL 06/27/2019 9:25 PM EST [facility] MCH 27.5 27.0 - 33.0 pg 06/27/2019 9:25 PM EST [facility] MCHC 31.9(L) 32.0 - 36.0 g/dL 06/27/2019 9:25 PM EST [facility] RDW 14.3 11.0 - 15.0 % 06/27/2019 9:25 PM EST [facility] Platelets 189 140 - 400 10E3/uL 06/27/2019 9:25 PM EST [facility] MPV 6.6(L) 7.5 - 11.5 fL 06/27/2019 9:25 PM EST [facility] Whole blood specimen (specimen) 06/27/2019 9:08 PM EST 06/27/2019 9:18 PM EST Aydin Barber MD LAB BLOOD ORDERABLES Final Result Performing Organization Address City/[facility]/ZIP Co de Phone Number [facility] [address] [place] [address], [facility] * (ABNORMAL) Renal Function Panel w/EGFR (06/27/2019 9:08 PM EST) Sodium 140 133 - 146 mmol/L 06/27/2019 9:46 PM [facility] Potassium 6.0(H) 3.5 - 5.3 mmol/L 06/27/2019 9:46 PM [facility] Chloride 114(H) 98 - 110 mmol/L 06/27/2019 9:46 PM [facility] CO2 20(L) 21 - 33 mmol/L 06/27/2019 9:46 PM [facility] Anion Gap 6 3 - 16 mmol/L 06/27/2019 9:46 PM [facility] BUN 45(H) 7 - 25 mg/dL 06/27/2019 9:46 PM [facility] Creatinine 4.60(H) 0.60 - 1.30 mg/dL 06/27/2019 9:46 PM [facility] Glucose 205(H) 70 - 100 mg/dL 06/27/2019 9:46 PM [facility] Calcium 7.9(L) 8.6 - 10.3 mg/dL 06/27/2019 9:46 PM [facility] Phosphorus 4.1 2.1 - 4.7 mg/dL 06/27/2019 9:46 PM [facility] Albumin 3.3(L) 3.5 - 5.7 g/dL 06/27/2019 9:46 PM [facility] Osmolality, Calculated 307(H) 278 - 305 mOsm/kg 06/27/2019 9:46 PM [facility] eGFR AA CKD-EPI 17 See note. 9 9:46 PM [facility] Comment: As of 2015 the estimated [...] equation to estimate glomerular filtration rate. ??[facility] 2009:150(9):604-12 eGFR NONAA CKD-EPI 14 See note. 2018 9:46 PM EST [facility] Comment: As of [...] equation to estimate glomerular filtration rate. ??[facility] [employer]. 2009:150(9):604-12 Plasma specimen (specimen) 06/27/2019 9:08 PM EST 06/27/2019 9:18 PM EST Aydin Barber MD LAB BLOOD ORDERABLES Final Result Performing Organization Address [facility]/ZIP Co de Phone Number [facility] [address] * Lactic Acid (06/27/2019 9:08 PM EST) Lactate 0.5 0.5 - 2.2 mmol/L 06/27/2019 10:05 PM EST [facility] Plasma specimen (specimen) 06/27/2019 9:08 PM EST 06/27/2019 9:25 PM EST Aydin Barber MD LAB BLOOD ORDERABLES Final Result Performing Organization Address [facility]/ZIP Co de Phone Number [facility] [address] [place] [address] * (ABNORMAL) Hepatic Function Panel (06/27/2019 9:08 PM EST) Total Bilirubin 0.2 0.0 - 1.5 mg/dL 06/27/2019 9:46 PM EST [facility] Bilirubin, Direct 0.04 0.00 - 0.40 mg/dL 06/27/2019 9:46 PM EST [facility] AST 10(L) 13 - 39 U/L 06/27/2019 9:46 PM EST [facility] ALT 10 7 - 52 U/L 06/27/2019 9:46 PM EST [facility] Alkaline Phosphatase 117 36 - 125 U/L 06/27/2019 9:46 PM EST [facility] Total Protein 5.7(L) 6.4 - 8.9 g/dL 06/27/2019 9:46 PM EST [facility] Albumin 3.3(L) 3.5 - 5.7 g/dL 06/27/2019 9:46 PM EST [facility] Bilirubin, Indirect 0.16 0.00 - 1.10 mg/dL 06/27/2019 9:46 PM EST [facility] Plasma specimen (specimen) 06/27/2019 9:08 PM EST 06/27/2019 9:18 PM EST Aydin Barber MD LAB BLOOD ORDERABLES Final Result Performing Organization Address City/State/[facility] Co de Phone Number [facility] [address] documented in this encounter Visit Diagnoses Diagnosis Hyperkalemia- Primary Hyperpotassemia Diarrhea in adult patient Immunosuppression ([facility] [place] Type 2 diabetes 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, with long-term current use of insulin ([facility] [place] Metabolic acidosis Acidosis Acute renal failure superimposed on stage 3 chronic kidney disease, unspecified acute renal failure type ([facility] [place] Hyperkalemia Hyperpotassemia Anemia, unspecified type Neuropathy Mononeuritis of unspecified site S/P liver transplant ([facility] [place] Hyperglycemia Other abnormal glucose Gastroesophageal reflux disease, esophagitis presence not specified CKD (chronic kidney disease) stage 3, GFR 30-59 ml/min ([facility] [place] Chronic kidney disease, Stage III (moderate) Jezbd-it-umxmzel kidney injury ([facility] [place] Diabetes mellitus ([facility] [place]) Type II or unspecified type diabetes mellitus without mention of complication, not stated as uncontrolled Hypertension Unspecified essential hypertension Immunosuppression ([facility] [place]) Liver transplant recipient ([facility] [place]) Metabolic acidosis Acidosis Diarrhea in adult patient documented in this encounter Administered Medications Inactive Administered Medications - up to 3 most recent administrations Medication Order MAR Action Action Date Dose Rate Site acetaminophen (TYLENOL) tablet 650 mg 650 mg, Oral, Every 6 hours PRN, moderate pain (NRS-4-6), Fever, Headaches, Starting on Mon06/28/19 at 1631, Maximum dose of acetaminophen is 4000 mg (4 grams) from all sources in 24 hours. aspirin chewable tablet 81 mg 81 mg, Oral, Daily with breakfast, First dose on Mon06/28/19 at 0800 Given 07/01/2019 8:24 AM EST 81 mg Given 06/30/2019 9:31 AM EST 81 mg Given 06/29/2019 8:46 AM EST 81 mg capsaicin (ZOSTRIX) 0.025 % cream Topical, 2 times daily, First dose on Mon06/29/19 at 0900, Apply to: Other Self-Administered 07/01/2019 8:31 AM EST Given 06/30/2019 8:08 PM EST Given 06/30/2019 9:35 AM EST carBAMazepine (TEGRETOL) tablet 200 mg 200 mg, Oral, At Bedtime (2100), First dose on Mon06/27/19 at 2300 Given 06/30/2019 8:07 PM EST 200 mg Given 06/29/2019 9:54 PM EST 200 mg Given 06/28/2019 11:22 PM EST 200 mg carvedilol (COREG) tablet 50 mg 50 mg, Oral, 2 times daily with meals, First dose on Mon06/28/19 at 0800 Given 07/01/2019 8:23 AM EST 50 mg Given 06/30/2019 5:23 PM EST 50 mg Given 06/30/2019 9:30 AM EST 50 mg cloNIDine HCl (CATAPRES) tablet 0.1 mg 0.1 mg, Oral, 2 times daily, First dose on Mon06/27/19 at 2230 Given 07/01/2019 8:24 AM EST 0.1 mg Given 06/30/2019 8:06 PM EST 0.1 mg Given 06/30/2019 9:30 AM EST 0.1 mg cyclobenzaprine (FLEXERIL) tablet 5 mg 5 mg, Oral, 3 times daily PRN, Muscle spasms, Starting on Mon06/28/19 at 1122 Given 06/28/2019 11:54 AM EST 5 mg darbepoetin giancarlo in polysorbat (ARANESP) injection 100 mcg 100 mcg, Subcutaneous, Once, Indications: anemia due to renal failure, Per Nephrology recommendations prior to discharge, On Mon07/01/19 at 1300, For 1 doseIndications:anemia due to renal failure,Per Nephrology recommendations prior to discharge Given 07/01/2019 1:46 PM EST 100 mcg Right Arm dextrose 10 % (D10W) in water infusion 25 g, Intravenous, Once, On Bobbi 06/27/19 at 2230, For 1 dose, FOR SMART PUMP: Set volume to be infused to 250 mL = 25 grams Administer D10 250 mL IV with Insulin 5 units dose Given 06/27/2019 10:50 PM EST 25 g 999 mL/hr dextrose 10 % (D10W) in water infusion 12.5 g, Intravenous, Every 15 min PRN, for glucose < 70 and alert but can not be corrected orally or via feeding tube, Starting on Bobbi 06/27/19 at 2236, Recheck blood sugar in 15 minutes and repeat treatment if glucose still < 70. FOR SMART PUMP: Set volume to be infused to 125 mL = 12.5 grams OR 250 mL = 25 grams dextrose 10 % (D10W) in water infusion 25 g, Intravenous, Every 15 min PRN, for glucose < 70 and not alert, Starting on Bobbi 06/27/19 at 2236, Recheck blood sugar in 15 minutes and repeat treatment if glucose still < 70. FOR SMART PUMP: Set volume to be infused to 125 mL = 12.5 grams OR 250 mL = 25 grams entecavir (BARACLUDE) tablet 0.5 mg 0.5 mg, Oral, Every other day, First dose on Mon06/28/19 at 0900, ADMINISTER ON EMPTY STOMACH (2 HOURS BEFORE OR AFTER MEALS). LEVEL 2 HAZARDOUS MEDICATION Given 06/30/2019 9:31 AM EST 0.5 mg Given 06/28/2019 8:23 AM EST 0.5 mg famotidine (PEPCID) tablet 20 mg 20 mg, Oral, Daily, First dose on Mon06/28/19 at 0900 Given 07/01/2019 8:24 AM EST 20 mg Given 06/30/2019 9:30 AM EST 20 mg Given 06/29/2019 8:46 AM EST 20 mg gabapentin (NEURONTIN) capsule 200 mg 200 mg, Oral, 2 times daily, First dose on Bobbi 06/27/19 at 2300 Given 06/28/2019 8:23 AM EST 200 mg Given 06/27/2019 11:29 PM EST 200 mg gabapentin (NEURONTIN) capsule 400 mg 400 mg, Oral, 2 times daily, First dose (after last modification) on Mon06/28/19 at 2100 Given 07/01/2019 8:24 AM EST 400 mg Given 06/30/2019 8:05 PM EST 400 mg Given 06/30/2019 9:30 AM EST 400 mg glucose chewable tablet 12 g 12 g, Oral, Every 15 min PRN, Low blood sugar, Starting on Mon06/27/19 at 2236, Recheck glucose in 15 minutes and repeat treatment if glucose is still less than 70. DO NOT ADMINISTER VIA FEEDING TUBE. DO NOT ADMINISTER VIA FEEDING TUBE heparin (porcine) injection 5,000 Units 5,000 Units, Subcutaneous, Every 8 hours scheduled (3 times per day), First dose on Mon06/27/19 at 2100 Given 06/29/2019 9:40 PM EST 5,000 Units Left Arm Given 06/28/2019 5:03 AM EST 5,000 Units A bdominal Tissue Given 06/27/2019 11:40 PM EST 5,000 Units Abdominal Tissue insulin lispro (humaLOG) injection 0-5 Units 0-5 Units, Subcutaneous, 3 times daily before meals, First dose on Mon06/28/19 at 1300, HIGH ALERT MEDICATION Given 07/01/2019 2:06 PM EST 1 Units Right Arm Given 06/29/2019 1:47 PM EST 2 Units Ab dominal Tissue Given 06/28/2019 12:49 PM EST 1 Units R ight Arm insulin NPH (HumuLIN N) injection 12 Units 12 Units, Subcutaneous, At Bedtime (2099), First dose on Mon06/27/19 at 2300, Do not hold medication unless instructed by provider. HIGH ALERT MEDICATION Given 06/28/2019 11:28 PM EST 12 Units Right Arm Given 06/27/2019 11:32 PM EST 12 Units A bdominal Tissue insulin NPH (HumuLIN N) injection 20 Units 20 Units, Subcutaneous, Every morning, First dose (after last modification) on Mon07/01/19 at 0900, HIGH ALERT MEDICATION Given 07/01/2019 10:34 AM EST 20 Units Right Arm insulin NPH (HumuLIN N) injection 24 Units 24 Units, Subcutaneous, Every morning, First dose (after last modification) on Mon06/30/19 at 0900, HIGH ALERT MEDICATION Given 06/30/2019 9:27 AM EST 24 Units Left Arm insulin NPH (HumuLIN N) injection 28 Units 28 Units, Subcutaneous, Every morning, First dose on Mon06/28/19 at 0900, HIGH ALERT MEDICATION Given 06/29/2019 8:54 AM EST 28 Units Abdominal Tissue Given 06/28/2019 9:44 AM EST 28 Units Ri ght Arm insulin NPH (HumuLIN N) injection 8 Units 8 Units, Subcutaneous, At Bedtime (2100), First dose (after last modification) on 06/29/19 at 2100, Do not hold medication unless instructed by provider. HIGH ALERT MEDICATION Given 06/30/2019 8:13 PM EST 8 Units Abdominal Tissue Given 06/29/2019 9:50 PM EST 8 Units Ri ght Arm insulin regular (HumuLIN R) injection 5 Units 5 Units, Intravenous, Once, On Bobbi 06/27/19 at 2230, For 1 dose, Administer with D10W 25 gram (250 mL) dose Given 06/27/2019 11:19 PM EST 5 Units loperamide (IMODIUM) capsule 2 mg 2 mg, Oral, 4 times daily PRN, Diarrhea, Starting on Mon06/28/19 at 2305, Maximum dose of 16 mg (8 capsules) per day. Given 06/28/2019 11:23 PM EST 2 mg methocarbamol (ROBAXIN) tablet 500 mg 500 mg, Oral, 3 times daily PRN, Muscle spasms, Starting on Mon06/29/19 at 1036 Given 06/30/2019 11:24 PM EST 50 0 mg Given 06/30/2019 12:39 AM EST 500 mg mycophenolate (CELLCEPT) capsule 750 mg 750 mg, Oral, 2 times daily, First dose on Mon06/27/19 at 2300, LEVEL 2 HAZARDOUS MEDICATION Given 07/01/2019 8:24 AM EST 750 mg Given 06/30/2019 8:05 PM EST 750 mg Given 06/30/2019 9:29 AM EST 750 mg NIFEdipine (PROCARDIA-XL) 24 hr tablet 90 mg 90 mg, Oral, 2 times daily, First dose on Mon06/27/19 at 2300, DO NOT CRUSH Given 07/01/2019 8:23 AM EST 90 mg Given 06/30/2019 8:05 PM EST 90 mg Given 06/30/2019 9:29 AM EST 90 mg ondansetron (ZOFRAN) injection 4 mg 4 mg, Intravenous, Every 8 hours PRN, Nausea and/or Vomiting, Starting on Bobbi 06/27/19 at 2120, If patient not able to tolerate PO, administer IV. Given 06/28/2019 8:31 AM EST 4 mg Given 06/27/2019 11:59 PM EST 4 mg ondansetron (ZOFRAN) injection 4 mg 4 mg, Intravenous, Every 6 hours PRN, Nausea and/or Vomiting, Starting on Mon06/28/19 at 1130, If patient not able to tolerate PO, administer IV. Given 06/30/2019 6:37 PM EST 4 mg Given 06/29/2019 12:54 AM EST 4 mg Given 06/28/2019 6:22 PM EST 4 mg ondansetron (ZOFRAN) tablet 4 mg 4 mg, Oral, Every 6 hours PRN, Nausea and/or Vomiting, Starting on Mon06/28/19 at 1130 Given 06/29/2019 6:35 PM EST 4 mg polyethylene glycol (MIRALAX) packet 17 g 17 g, Oral, 2 times daily, First dose on Bobbi 06/27/19 at 2300 Given 06/30/2019 8:08 PM EST 17 g Given 06/27/2019 11:47 PM EST 17 g sodium bicarbonate 50 mEq 50 mEq, Intravenous, Once, On Bobbi 06/27/19 at 2230, For 1 dose Given 06/27/2019 11:45 PM EST 50 mEq sodium bicarbonate 75 mEq in sodium chloride 0.45 % 1,000 mL IV infusion 75 mL/hr, Intravenous, Continuous, Starting on Mon06/28/19 at 0900 New Bag 06/29/2019 12:53 AM EST 75 mL/hr 75 mL/hr New Bag 06/28/2019 9:42 AM EST 75 mL/hr 75 mL/hr sodium bicarbonate tablet 1,300 mg 1,300 mg, Oral, 2 times daily, First dose on Mon06/29/19 at 1300 Given 07/01/2019 8:24 AM EST 1,300 mg Given 06/30/2019 8:05 PM EST 1,300 mg Given 06/30/2019 9:31 AM EST 1,300 mg sodium chloride 0.9 % infusion 125 mL/hr, Intravenous, Continuous, Starting on Mon06/28/19 at 0130, For 1 day Rate/Dose Verify 06/28/2019 6:01 AM EST 125 mL/hr 125 mL/hr New Bag 06/28/2019 2:25 AM EST 125 mL/hr 125 mL/hr sodium chloride flush 10 mL 10 mL, Intravenous, Every Shift, First dose on Bobbi 06/27/19 at 2130 Given 07/01/2019 6:25 AM EST 10 mLs Given 06/30/2019 8:19 PM EST 10 mLs Given 06/30/2019 12:56 PM EST 10 mLs sodium polystyrene (KAYEXALATE) powder 30 g 30 g, Oral, Once, On Bobbi 06/27/19 at 2230, For 1 dose, Dissolve 15 grams in 60 mL of WATER. Do not use orange juice or any diluent known to contain POTASSIUM. Given 06/27/2019 10:58 PM EST 30 g sodium polystyrene (KAYEXALATE) powder 30 g 30 g, Oral, Once, On Mon06/28/19 at 0830, For 1 dose, Dissolve 15 grams in 60 mL of WATER. Do not use orange juice or any diluent known to contain POTASSIUM. Given 06/28/2019 9:36 AM EST 30 g tacrolimus ER (24 HR) (ENVARSUS XR) tablet 1 mg 1 mg, Oral, Once, On Mon07/01/19 at 1330, For 1 dose, TAKE ON EMPTY STOMACH For total of 3 mg today as per Hepatology recommendations. SWALLOW WHOLE; DO NOT CRUSH, CHEW OR DIVIDE Given 07/01/2019 2:06 PM EST 1 mg tacrolimus ER (24 HR) (ENVARSUS XR) tablet 2 mg 2 mg, Oral, Daily7, First dose (after last modification) on Mon06/28/19 at 1230, TAKE ON EMPTY STOMACH SWALLOW WHOLE; DO NOT CRUSH, CHEW OR DIVIDE Given 07/01/2019 6:25 AM EST 2 mg Given 06/30/2019 6:30 AM EST 2 mg Given 06/29/2019 6:42 AM EST 2 mg terazosin (HYTRIN) capsule 10 mg 10 mg, Oral, 2 times daily, First dose on Bobbi 06/27/19 at 2300, Therapeutic Interchange: doxazosin (CARDURA) 8 mg daily = terazosin (HYTRIN) 10 mg daily Given 07/01/2019 9:32 AM EST 10 mg Given 06/30/2019 8:07 PM EST 10 mg Given 06/30/2019 9:29 AM EST 10 mg tiZANidine (ZANAFLEX) tablet 2 mg 2 mg, Oral, Every 6 hours PRN, Muscle spasms, Starting on Mon06/28/19 at 2348 Given 06/29/2019 12:54 AM EST 2 mg documented in this encounter Active and Recently Administered Medications Times are shown in EST. Scheduled Medication Order 06/29/2019 06/30/2019 07/01/2019 aspirin chewable tablet 81 mg 81 mg, Oral, Daily with breakfast, First dose on Mon06/28/19 at 0800 0846 (Given - Provider: Karolina Maravilla RN) 0931 (Given - Provider: Rose Haynes RN) 0824 (Given - Provider: Marielle Schneider, JANA) capsaicin (ZOSTRIX) 0.025 % cream Topical, 2 times daily, First dose on Mon06/29/19 at 0900, Apply to: Other 0852 (Given - Provider: Karolina Maravilla RN)2156 (Given - Provider: Rob Bernal, JANA) 0935 (Given - Provider: Rose Haynes, RN)2007 (Given - Provider: Claudia Nobles, JANA) 0831 (Self-Administered - Provider: Marielle Schneider, JANA) carBAMazepine (TEGRETOL) tablet 200 mg 200 mg, Oral, At Bedtime (2100), First dose on Mon06/27/19 at 2300 2154 (Given - Provider: Rob Bernal, JANA) 2006 (Given - Provider: Claudia Nobles, JANA) carvedilol (COREG) tablet 50 mg 50 mg, Oral, 2 times daily with meals, First dose on Mon06/28/19 at 0800 0846 (Given - Provider: Karolina Maravilla RN)1752 (Given - Provider: Karolina Maravilla, JANA) 0930 (Given - Provider: Rose Haynes RN)1723 (Given - Provider: Rose Haynes, RN) 0823 (Given - Provider: Marielle Schneider, JANA) cloNIDine HCl (CATAPRES) tablet 0.1 mg 0.1 mg, Oral, 2 times daily, First dose on Bobbi 06/27/19 at 2230 0848 (Given - Provider: Karolina Maravilla, JANA)2138 (Given - Provider: Rob Bernal, RN) 09 (Given - Provider: Rose Haynes, RN)2005 (Given - Provider: Claudia Nobles, JANA) 0824 (Given - Provider: Marielle Schneider, JANA) darbepoetin giancarlo in polysorbat (ARANESP) injection 100 mcg (COMPLETED) 100 mcg, Subcutaneous, Once, Indications: anemia due to renal failure, Per Nephrology recommendations prior to discharge, On Mon07/01/19 at 1300, For 1 dose 1346 (Given - Provider: Marielle Schneider, JANA) entecavir (BARACLUDE) tablet 0.5 mg 0.5 mg, Oral, Every other day, First dose on Mon06/28/19 at 0900, ADMINISTER ON EMPTY STOMACH (2 HOURS BEFORE OR AFTER MEALS). LEVEL 2 HAZARDOUS MEDICATION 0931 (Given - Provider: Rose Haynes, JANA) famotidine (PEPCID) tablet 20 mg 20 mg, Oral, Daily, First dose on Mon06/28/19 at 0900 0846 (Given - Provider: Karolina Maravilla, JANA) 0930 (Given - Provider: Rose Haynes RN) 0824 (Given - Provider: Marielle Schneider RN) gabapentin (NEURONTIN) capsule 400 mg 400 mg, Oral, 2 times daily, First dose (after last modification) on Mon06/28/19 at 2100 0848 (Given - Provider: Karolina Maravilla, JANA)2138 (Given - Provider: Rob Bernal, JANA) 929 (Given - Provider: Rose Haynes, JANA)2004 (Given - Provider: Claudia Nobles, JANA) 0824 (Given - Provider: Marielle Schneider RN) heparin (porcine) injection 5,000 Units 5,000 Units, Subcutaneous, Every 8 hours scheduled (3 times per day), First dose on Mon06/27/19 at 2100 0511 (Not Given - Provider: Amaya Jones RN - Reason: Patient/family refused - Comment: medication provided, md notified)1220 (Not Given - Provider: Karolina Maravilla RN - Reason: Patient/family refused)2140 (Given - Provider: Rob Bernal, JANA) 0606 (Not Given - Provider: Claudia Nobles RN - Reason: Patient/family refused)1258 (Not Given - Provider: Rose Haynes RN - Reason: Patient/family refused)2006 (Not Given - Provider: Claudia Nobles RN - Reason: Patient/family refused) 0501 (Not Given - Provider: Claudia Nolbes RN - Reason: Patient/family refused)1347 (Not Given - Provider: Marielle Schneider RN - Reason: Patient/family refused) insulin lispro (humaLOG) injection 0-5 Units 0-5 Units, Subcutaneous, 3 times daily before meals, First dose on Mon06/28/19 at 1300, HIGH ALERT MEDICATION 1000 (Not Given - Provider: Karolina Maravilla RN - Reason: Order parameters not met)1347 (Given - Provider: Karolina Maravilla RN)1800 (Not Given - Provider: Karolina Maravilla RN - Reason: Order parameters not met) 0932 (Not Given - Provider: Rose Haynes RN - Reason: Patient/family refused)1257 (Not Given - Provider: Rose Haynes RN - Reason: Order parameters not met)1747 (Not Given - Provider: Rose Haynes RN - Reason: Order parameters not met) 1039 (Not Given - Provider: Marielle Schneider RN - Reason: Order parameters not met)1406 (Given - Provider: Marielle Schneider RN) insulin NPH (HumuLIN N) injection 20 Units 20 Units, Subcutaneous, Every morning, First dose (after last modification) on Mon07/01/19 at 0900, HIGH ALERT MEDICATION 1034 (Given - Provider: Marielle Schneider RN) insulin NPH (HumuLIN N) injection 24 Units (CANCELED) 24 Units, Subcutaneous, Every morning, First dose (after last modification) on Mon06/30/19 at 0900, HIGH ALERT MEDICATION 0927 (Given - Provider: Rose Haynes RN) insulin NPH (HumuLIN N) injection 28 Units (CANCELED) 28 Units, Subcutaneous, Every morning, First dose on Mon06/28/19 at 0900, HIGH ALERT MEDICATION 0854 (Given - Provider: Karolina Maravilla RN) insulin NPH (HumuLIN N) injection 8 Units 8 Units, Subcutaneous, At Bedtime (2100), First dose (after last modification) on 06/29/19 at 2100, Do not hold medication unless instructed by provider. HIGH ALERT MEDICATION 2149 (Given - Provider: Rob Bernal, RN) 2012 (Given - Provider: Claudia Nobles, RN) mycophenolate (CELLCEPT) capsule 750 mg 750 mg, Oral, 2 times daily, First dose on Bobbi 06/27/19 at 2300, LEVEL 2 HAZARDOUS MEDICATION 0847 (Given - Provider: Karolina Maravilla, RN)2138 (Given - Provider: Rob Bernal, RN) 928 (Given - Provider: Rose Haynes, RN)2004 (Given - Provider: Claudia Nobles, JANA) 0824 (Given - Provider: Marielle Schneider, JANA) NIFEdipine (PROCARDIA-XL) 24 hr tablet 90 mg 90 mg, Oral, 2 times daily, First dose on Bobbi 06/27/19 at 2300, DO NOT CRUSH 0847 (Given - Provider: Karolina Maravilla, JANA)2138 (Given - Provider: Rob Bernal, JANA) 928 (Given - Provider: Rose Haynes, RN)2004 (Given - Provider: Claudia Nobles, JANA) 08 (Given - Provider: Marielle Schneider, JANA) polyethylene glycol (MIRALAX) packet 17 g 17 g, Oral, 2 times daily, First dose on Bobbi 06/27/19 at 2300 0851 (Not Given - Provider: Karolina Maravilla, JANA - Reason: Patient/family refused)2151 (Not Given - Provider: Rob Bernal, JANA - Reason: Patient/family refused) 0935 (Not Given - Provider: Rose Haynes, RN - Reason: Patient/family refused)2007 (Given - Provider: Claudia Nobles, JANA) 08 (Not Given - Provider: Marielle Schneider, JANA - Reason: Patient/family refused) sodium bicarbonate tablet 1,300 mg 1,300 mg, Oral, 2 times daily, First dose on 06/29/19 at 1300 1347 (Given - Provider: Karolina Maravilla, JANA)2138 (Given - Provider: [place] Renzo Bernal, RN) 0931 (Given - Provider: Rose Haynes, RN)2004 (Given - Provider: Claudia Nobles, JANA) 08 (Given - Provider: Marielle Schneider RN) sodium chloride flush 10 mL(Linked Group 1) 10 mL, Intravenous, Every Shift, First dose on Bobbi 06/27/19 at 2130 0512 (Given - Provider: Amaya Jones RN)1347 (Given - Provider: Karolina Maravilla, RN)215 (Given - Provider: Rob Bernal, RN) 043 (Given - Provider: Claudia Nobles, JANA)125 (Given - Provider: Rose Haynes, RN)2018 (Given - Provider: Claudia Nobles, JANA) 0625 (Given - Provider: Claudia Nobles, JANA)1348 (Not Given - Provider: Marielle Schneider RN - Reason: Order parameters not met - Comment: pt. discharging) tacrolimus ER (24 HR) (ENVARSUS XR) tablet 1 mg (COMPLETED) 1 mg, Oral, Once, On Mon07/01/19 at 1330, For 1 dose, TAKE ON EMPTY STOMACH For total of 3 mg today as per Hepatology recommendations. SWALLOW WHOLE; DO NOT CRUSH, CHEW OR DIVIDE 1406 (Given - Provider: Marielle Schneider RN) tacrolimus ER (24 HR) (ENVARSUS XR) tablet 2 mg 2 mg, Oral, Daily7, First dose (after last modification) on Mon06/28/19 at 1230, TAKE ON EMPTY STOMACH SWALLOW WHOLE; DO NOT CRUSH, CHEW OR DIVIDE 0642 (Given - Provider: Amaya Jones RN) 0630 (Given - Provider: Claudia Nobles, JANA) 0625 (Given - Provider: Claudia Nobles, JANA) terazosin (HYTRIN) capsule 10 mg 10 mg, Oral, 2 times daily, First dose on Mon06/27/19 at 2300, Therapeutic Interchange: doxazosin (CARDURA) 8 mg daily = terazosin (HYTRIN) 10 mg daily 0847 (Given - Provider: Karolina Maravilla, JANA)215 (Given - Provider: Rob Bernal, RN) 09 (Given - Provider: Rose Haynes RN)2006 (Given - Provider: Claudia Nobles, JANA) 09 (Given - Provider: Marielle Schneider RN) Continuous Medication Order 06/29/2019 06/30/2019 07/01/2019 sodium bicarbonate 75 mEq in sodium chloride 0.45 % 1,000 mL IV infusion (CANCELED) 75 mL/hr, Intravenous, Continuous, Starting on Mon06/28/19 at 0900 0053 (New Bag - Provider: Amaya Jones, JANA)1243 (Stopped - Provider: Karolina Maravilla RN) PRN Medication Order 06/29/2019 06/30/2019 07/01/2019 acetaminophen (TYLENOL) tablet 650 mg 650 mg, Oral, Every 6 hours PRN, moderate pain (NRS-4-6), Fever, Headaches, Starting on Mon06/28/19 at 1631, Maximum dose of acetaminophen is 4000 mg (4 grams) from all sources in 24 hours. dextrose 10 % (D10W) in water infusion(Linked Group 2) 12.5 g, Intravenous, Every 15 min PRN, for glucose < 70 and alert but can not be corrected orally or via feeding tube, Starting on Bobbi 06/27/19 at 2236, Recheck blood sugar in 15 minutes and repeat treatment if glucose still < 70. FOR SMART PUMP: Set volume to be infused to 125 mL = 12.5 grams OR 250 mL = 25 grams dextrose 10 % (D10W) in water infusion(Linked Group 2) 25 g, Intravenous, Every 15 min PRN, for glucose < 70 and not alert, Starting on Bobbi 06/27/19 at 2236, Recheck blood sugar in 15 minutes and repeat treatment if glucose still < 70. FOR SMART PUMP: Set volume to be infused to 125 mL = 12.5 grams OR 250 mL = 25 grams glucose chewable tablet 12 g 12 g, Oral, Every 15 min PRN, Low blood sugar, Starting on Bobbi 06/27/19 at 2236, Recheck glucose in 15 minutes and repeat treatment if glucose is still less than 70. DO NOT ADMINISTER VIA FEEDING TUBE. DO NOT ADMINISTER VIA FEEDING TUBE loperamide (IMODIUM) capsule 2 mg 2 mg, Oral, 4 times daily PRN, Diarrhea, Starting on Mon06/28/19 at 2305, Maximum dose of 16 mg (8 capsules) per day. methocarbamol (ROBAXIN) tablet 500 mg 500 mg, Oral, 3 times daily PRN, Muscle spasms, Starting on Mon06/29/19 at 1036 0039 (Given - Provider: Claudia Nobles, RN)2324 (Given - Provider: Claudia Nobles, RN) ondansetron (ZOFRAN) injection 4 mg(Linked Group 3) 4 mg, Intravenous, Every 6 hours PRN, Nausea and/or Vomiting, Starting on Mon06/28/19 at 1130, If patient not able to tolerate PO, administer IV. 0054 (Given - Provider: Amaya Jones, JANA)1835 (See Alternative - Provider: Karolina Maravilla, JANA) 183 (Given - Provider: Rose Haynes, RN) ondansetron (ZOFRAN) tablet 4 mg(Linked Group 3) 4 mg, Oral, Every 6 hours PRN, Nausea and/or Vomiting, Starting on Mon06/28/19 at 1130 0054 (See Alternative - Provider: Amaya Jones RN)183 (Given - Provider: Karolina Maravilla, JANA) 183 (See Alternative - Provider: Rose Haynes, RN) tiZANidine (ZANAFLEX) tablet 2 mg (CANCELED) 2 mg, Oral, Every 6 hours PRN, Muscle spasms, Starting on Mon06/28/19 at 2348 0054 (Given - Provider: Amaya Jones RN) Linked Groups Order Group 1: Place saline lock (CANCELED) STAT, Once, On Bobbi 06/27/19 at 2050, For 1 occurrence And sodium chloride flush 10 mLJump to med 10 mL, Intravenous, Every Shift, First dose on Bobbi 06/27/19 at 2130 Group 2: dextrose 10 % (D10W) in water infusionJump to med 12.5 g, Intravenous, Every 15 min PRN, for glucose < 70 and alert but can not be corrected orally or via feeding tube, Starting on Bobbi 06/27/19 at 2236, Recheck blood sugar in 15 minutes and repeat treatment if glucose still < 70. FOR SMART PUMP: Set volume to be infused to 125 mL = 12.5 grams OR 250 mL = 25 grams Or dextrose 10 % (D10W) in water infusionJump to med 25 g, Intravenous, Every 15 min PRN, for glucose < 70 and not alert, Starting on Bobbi 06/27/19 at 2236, Recheck blood sugar in 15 minutes and repeat treatment if glucose still < 70. FOR SMART PUMP: Set volume to be infused to 125 mL = 12.5 grams OR 250 mL = 25 grams Group 3: ondansetron (ZOFRAN) tablet 4 mgJump to med 4 mg, Oral, Every 6 hours PRN, Nausea and/or Vomiting, Starting on Mon06/28/19 at 1130 Or ondansetron (ZOFRAN) injection 4 mgJump to med 4 mg, Intravenous, Every 6 hours PRN, Nausea and/or Vomiting, Starting on Mon06/28/19 at 1130, If patient not able to tolerate PO, administer IV. documented in this encounter Additional Health Concerns Assessment Noted Time PHQ-9 Depression Total Score: 0 12/06/19 18 3:00 PM EDT documented as of this encounter Care Teams Farmworkers Relationship Specialty Start Date End Date Edgar Fournier MD [address] [place] [address] [place] [address] PCP - General 08/18/17 06/23/21 Maile Valles RN Txp Post Coordinator Transplant Hepatology 11/07/17 Jack Ordoñez MD [facility] [place] [phone] Consulting Physician Transplant Hepatology 01/05/18 documented as of this encounter
--- OUTSIDE RECORDS SUMMARY | 2024-07-12 12:48 | XMS_ITS | Encounter Summary ---
Author Organization [facility] Address Formerly named [facility] [place] [address] Care Team Providers Care Slitter Scorer Name Role Phone Edgar Fournier MD Primary Care Provider [phone] Maile Valles RN Unavailable Unavail able Jack Ordoñez MD Unavailable [phone] Source Comments This information has been [...] release of HIV test results or diagnoses. [id number] Reason for Referral * Physician/ANUSHA (Routine) - Closed Specialty Diagnoses / Procedures Referred By Contvidal t Referred To Contact [facility] Bariatric Surgery Diagnoses Morbid obesity ([facility]) Varghese Shipley MD [address] [place] [address] Phone: tel: fax: Referral ID Status Reason Start Date Expiration Date Visits Re quested Visits Authorized [id number] Closed 04/12/2019 10/09/2019 1 1 Scheduling Instructions The [facility] offers a comprehensive and multidisciplinary approach to weight loss and weight management. Whether you wish to lose 20 lbs., 50 lbs., 300 lbs. or more, the [facility] offers medically supervised weight management programs and bariatric surgery options designed to help you obtain and maintain a healthy weight for longterm success. Our non-surgical, medical weight loss program [...] one of our FREE Informational Seminars visit [email or web address] or call for more details. Encounter Details Date Type Department Care Team (Late st Contact Info) Description 04/12/2019 Orders Only [facility] Transplant Surgery at [facility] [address] [facility] [address] [place] [address] Varghese Shipley MD [address] [facility]. Surgery [place], [place] [id number] Morbid obesity (CMS-HCC) (Primary Dx) Social History [...] Hospital Encounter [facility] Interventional Radiology [address] [place] [phone] Herve Carrillo MD [address] [facility] [address] [place] [phone] Scheduled Referrals Name Type Priority Associated Diagnoses Orde r Schedule Bariatric Surgery Outpatient Referral Routine Morbid obesity (CMS-HCC) Ordered: 04/12/2019 documented as of this encounter Visit Diagnoses Diagnosis Morbid obesity (CMS-HCC)- Primary Morbid obesity documented in this encounter Additional Health Concerns Assessment Noted Time PHQ-9 Depression Total Score: 0 12/06/19 18 3:00 PM EDT documented as of this encounter Care Teams Slitter Scorer Relationship Specialty Start Date End Date Edgar Fournier MD [address] [place] [address] [place] [address] PCP - General 08/18/17 06/23/21 Maile Valles, RN Txp Post Coordinator Transplant Hepatology 11/07/17 Jack Ordoñez MD [address] [place] [phone] Consulting Physician Transplant Hepatology 01/05/18 documented as of this encounter
--- OUTSIDE RECORDS SUMMARY | 2024-07-12 12:48 | XMS_ITS | Encounter Summary ---
Author Organization Health Address [facility] [place] [address] Care Team Providers Care Bituminous Paving Machine Operator Name Role Phone Edgar Fournier MD Primary Care Provider [phone] Maile Valles RN Unavailable Unavail able Jack Ordoñez MD Unavailable [phone] Source Comments This information has been [...] release of HIV test results or diagnoses. [id number] Encounter Details Date Type Department Care Team (Late st Contact Info) Description 02/12/2019 Telephone [facility] Liver Transplant at Outpatient [address] [address] Lynnette Muhammad MA Social History [facility] [address] [place] [phone] Herve Carrillo MD [address] [facility] [address] [place] [address] documented as of this encounter Visit Diagnoses Not on filedocumented in this encounter Additional Health Concerns Assessment Noted Time PHQ-9 Depression Total Score: 0 12/06/19 18 3:00 PM EDT documented as of this encounter Care Teams Bituminous Paving Machine Operator Relationship Specialty Start Date End Date Edgar Fournier MD [address] [place] [address] [place] [address] PCP - General 08/18/17 06/23/21 Maile Valles, JANA Txp Post Coordinator Transplant Hepatology 11/07/17 Jack Ordoñez MD [address] [place] [phone] Consulting Physician Transplant Hepatology 01/05/18 documented as of this encounter
--- OUTSIDE RECORDS SUMMARY | 2024-07-12 12:48 | XMS_ITS | Encounter Summary ---
Author Organization Health Address [facility] [place] [address] Care Team Providers Care Communication Skills Instructor Name Role Phone Edgar Fournier MD Primary Care Provider [phone] Maile Valles RN Unavailable Unavail able Jack Ordoñez MD Unavailable [phone] Source Comments This information has been [...] release of HIV test results or diagnoses. [id number] Encounter Details Date Type Department Care Team (Late st Contact Info) Description 03/06/2019 Telephone [facility] Liver Transplant at Outpatient [address] [address] Cayetano Park MA Social History [...] Telephone Encounter - Cayetano Park MA - 03/06/2019 11:01 AM EDT Aiden called and rescheduled his appointment to 04/04. documented in this encounter Plan of Treatment Upcoming Encounters Date Type Department Care Team (Late st Contact Info) Description 07/15/2024 9:00 AM EST Hospital Encounter [facility] Interventional Radiology [address] [place] [phone] Herve Carrillo MD [address] [facility] [address] [place] [phone] documented as of this encounter Visit Diagnoses Not on filedocumented in this encounter Additional Health Concerns Assessment Noted Time PHQ-9 Depression Total Score: 0 12/06/19 18 3:00 PM EDT documented as of this encounter Care Teams Communication Skills Instructor Relationship Specialty Start Date End Date Edgar Fournier MD [address] [place] [address] [place] [address] PCP - General 08/18/17 06/23/21 Maile Valles, JANA Txp Post Coordinator Transplant Hepatology 11/07/17 Jack Ordoñez MD [address] [place] [phone] Consulting Physician Transplant Hepatology 01/05/18 documented as of this encounter
--- OUTSIDE RECORDS SUMMARY | 2024-07-12 12:48 | XMS_ITS | Encounter Summary ---
Author Organization Health Address [address] [place] [address] Care Team Providers Care Curator Of Manuscripts Name Role Phone Edgar Fournier MD Primary Care Provider [phone] Maile Valles RN Unavailable Unavail able Jack Ordoñze MD Unavailable [phone] Source Comments This information has been [...] release of HIV test results or diagnoses. [id number] Encounter Details Date Type Department Care Team (Late st Contact Info) Description 04/08/2019 Abstract [facility] Gastroenterology at [place] [facility] [address] [facility] [address] [place] [phone] Joan Brady Social History Tobacco Use Types [...] [facility] [address] [place] [phone] Herve Carrillo MD [address] [facility] [address] [place] [address] documented as of this encounter Procedures Procedure Name Priority Date/Time Associated Diagnosis Comments CBC Routine 04/03/2019 2:44 PM EDT GLUCOSE, RANDOM Routine 04/03/2019 2:44 PM EDT HEPATIC FUNCTION PANEL Routine 04/03/2019 2:44 PM EDT RENAL FUNCTION PANEL W/O EGFR Routine 04/03/2019 2:44 PM EDT documented in this encounter Results * Glucose, random (04/03/2019 2:44 PM EDT) Glucose 106 60 - 200 mg/dL Plasma specimen (specimen) Historical Provider LAB BLOOD ORDERABLES Yoselin l Result * (ABNORMAL) Hepatic function panel (04/03/2019 2:44 PM EDT) Alkaline Phosphatase 156 U/L ALT 13 U/L AST 14 U/L Total Bilirubin 0.2 0.1 - 1.4 mg/dL Bilirubin, Direct (Micro) 0 Protein, Total 6.1 Albumin 2.9(A) 3.5 - 5.0 g/dL Blood specimen (specimen) Historical Provider LAB BLOOD ORDERABLES Yoselin l Result * (ABNORMAL) Renal Function Panel w/o EGFR (04/03/2019 2:44 PM EDT) Creatinine 3.9 Potassium 5.5(A) 3.4 - 5.3 mmol/L Sodium 143 137 - 147 mmol/L Chloride 110(A) 99 - 108 mmol/L Phosphorus 4.3 2.5 - 4.9 mg/dL Calcium 7.9(A) 8.7 - 10.7 mg/dL Blood specimen (specimen) Historical Provider LAB BLOOD ORDERABLES Yoselin l Result * (ABNORMAL) CBC (04/03/2019 2:44 PM EDT) Hemoglobin 9.4(A) 13.5 - 17.5 g/dL Hematocrit 29(A) 41 - 53 % MCH 27.7 26.0 - 34.0 pg MCV 85.5 82.0 - 108.0 fL WBC 3.3 10^3/mL Platelets 233 Whole blood specimen (specimen) [facility] Provider LAB BLOOD ORDERABLES Yoselin l Result documented in this encounter Visit Diagnoses Not on filedocumented in this encounter Additional Health Concerns Assessment Noted Time PHQ-9 Depression Total Score: 0 12/06/19 18 3:00 PM EDT documented as of this encounter Care Teams Curator Of Manuscripts Relationship Specialty Start Date End Date Edgar Fournier MD [address] [place] [address] [place] [address] PCP - General 08/18/17 06/23/21 Maile Valles, RN Txp Post Coordinator Transplant Hepatology 11/07/17 Jack Ordoñez MD [facility] [place] [address] Consulting Physician Transplant Hepatology 01/05/18 documented as of this encounter
--- OUTSIDE RECORDS SUMMARY | 2024-07-12 12:49 | XMS_ITS | Encounter Summary ---
Author Organization [facility] Address [address] [place] [address] Care Team Providers Care Astronomy Teacher Name Role Phone Edgar Fournier MD Primary Care Provider [phone] Maile Valles RN Unavailable Unavail able Jack Ordoñez MD Unavailable [phone] Source Comments This information has been [...] release of HIV test results or diagnoses. [id number] Reason for Referral * Physician/ANUSHA (Routine) - Closed Specialty Diagnoses / Procedures Referred By Contac t Referred To Contact [facility] Nephrology Diagnoses Acute renal failure superimposed on stage 3 chronic kidney disease, unspecified acute renal failure type ([facility]) Lonnie Valles MD [address] [place] [address] Phone: tel: fax: Referral ID Status Reason Start Date Expiration Date Visits Re quested Visits Authorized [id number] Closed 01/17/2019 07/16/2019 1 1 Scheduling Instructions For appointments, please call [phone]. Reason for Visit * Reason Comments Shortness of Breath * Auth/Cert Specialty Diagnoses / Procedures Referred By Contvidal t Referred To Contact Transplant Diagnoses Peripheral edema Nephrotic syndrome Essential hypertension YANDY (acute kidney injury) ([facility]) Bilateral lower extremity edema S/P liver transplant ([facility]) Type 2 diabetes mellitus without complication, with long-term current use of insulin ([facility]) Acute renal failure superimposed on stage 3 chronic kidney disease, unspecified acute renal failure type ([facility]) 782.3 (ICD-9-CM) - R60.9 (ICD-10-CM) - Peripheral edema 581.9 (ICD-9-CM) - N04.9 (ICD-10-CM) - Nephrotic syndrome 401.9 (ICD-9-CM) - I10 (ICD-10-CM) - Essential hypertension 584.9 (ICD-9-CM) - N17.9 (ICD-10-CM) - YANDY (acute kidney injury) (CMS Dx) 782.3 (ICD-9-CM) - R60.0 (ICD-10-CM) - Bilateral lower extremity edema V42.7 (ICD-9-CM) - Z94.4 (ICD-10-CM) - S/P liver transplant (CMS Dx) 250.00, V58.67 (ICD-9-CM) - E11.9, Z79.4 (ICD-10-CM) - Type 2 diabetes mellitus without complication, with long-term current use of insulin (CMS Dx) 584.9, 585.3 (ICD-9-CM) - N17.9, N18.3 (ICD-10-CM) - Acute renal failure superi posed on stage 3 chronic kidney disease, unspecified acute renal failure type (CMS Dx) Procedures ER INPT ADMIT [address] [place] [address] Phone: tel: Referral ID Status Reason Start Date Expiration Date Visits Re quested Visits Authorized [id number] 1 1 Encounter Details Date Type Department Care Team (Latest Contact Info) Description 01/12/2019 12:44 AM EDT - 01/17/2019 6:26 PM EDT Hospital Encounter [facility] [id number] [place] [address] Renato Foy MD [address] [address] Malinda Rhodes MD Clark, Danielle Lillian, MD [address] [place] [address] Lonnie Valles MD [address] [place] [address] Acute renal failure superimposed on stage 3 chronic kidney disease, unspecified acute renal failure type ([facility]) (Primary Dx); YANDY (acute kidney injury) ([facility]); Bilateral lower extremity edema; S/P liver transplant ([facility]); Peripheral edema; Type 2 diabetes mellitus without complication, with long-term current use of insulin ([facility]); Nephrotic syndrome; Essential hypertension; Neuropathy; Hyperglycemia Discharge Disposition: Home or Self Care WITHOUT [...] Sign Reading Time Taken Comments Blood Pressure 155/105 01/17/2019 8:12 AM EDT Pulse 74 01/17/2019 8:12 AM EDT Temperature 36.5 ??C (97.7 ??F) 01/17/2019 8:12 AM ED T Respiratory Rate 18 01/17/2019 8:12 AM EDT Oxygen Saturation 90% 01/17/2019 8:12 AM EDT Inhaled Oxygen Concentration 90% 01/17/2019 8 :12 AM EDT Weight 130.1 kg (286 lb 14.4 oz) 01/17/2019 5:13 AM EDT Height - - Body Mass Index 44.93 12/13/2018 7:00 AM EDT documented in this encounter Discharge Summaries * Lonnie Valles MD - 01/17/2019 2:41 PM EDT [facility] Department of Internal Medicine Inpatient Discharge Summary Patient: Aiden Stauffer CSN: [id number] Date of Admission: 01/12/2019 Date of Discharge: 01/17/2019 Attending Physician: Lonnie Valles MD Diagnoses Present on Admission Past Medical History: Diagnosis Date ??? Acute pancreatitis ??? Ascites ??? Diabetes mellitus (CMS Dx) ??? Esophageal varices with bleeding (CMS Dx) ??? GERD (gastroesophageal reflux disease) ??? Hepatic encephalopathy (CMS Dx) ??? Hypertension ??? 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 Vitamin D deficiency Discharge Diagnoses Active Hospital Problems Diagnosis Date Noted ??? Erboo-pf-lbdokip kidney injury (CMS Dx) [N17.9, N18.9] 01/12/2019 ??? S/P liver transplant (CMS Dx) [Z94.4] 06/04/2018 ??? Peripheral edema [R60.9] 10/31/2017 ??? Hypertension [I10] ??? Diabetes mellitus (CMS Dx) [E11.9] Resolved Hospital Problems Diagnosis Date Noted Date Resolved No resolved problems to display. Operations/Procedures Performed (include dates) Surgeries: none Lines/Drains/Airways: Patient Lines/Drains/Airways Status Active Line / PIV Line None Notable Imaging Studies: Abd US with duplex: Abdomen: Normal sonographic appearance of the transplant liver. ?? Liver duplex: Normal directional flow with resistive indices as detailed above. Renal duplex: unable to visualize vessels Other Procedures: 1. None Consulting Services (include reason) 1. Hepatology (h/o OLT) 2. Transplant Nephrology (YANDY) Allergies Codeine Sulfate Codeine Discharge Medications Medication List TAKE these medications, which are NEW Quantity/Refills gabapentin 100 MG capsule Commonly known as: NEURONTIN Take 2 capsules (200 mg total) by mouth 3 times a day. Replaces: gabapentin 600 MG tablet Quantity: 180 capsule Refills: 0 polyethylene glycol 17 gram packet Commonly known as: MIRALAX Take 17 g by mouth 2 times a day as needed. Quantity: 100 packet Refills: 0 torsemide 20 MG tablet Commonly known as: DEMADEX Take 1 tablet (20 mg total) by mouth daily. Quantity: 30 tablet Refills: 0 TAKE these medication, which have CHANGED Quantity/Refills insulin glulisine U-100 100 unit/mL injection Commonly known as: APIDRA U-100 INSULIN Inject 5 Units subcutaneously 3 times a day with meals. What changed: how much to take Quantity: 10 mL Refills: 0 insulin NPH isoph U-100 human 100 unit/mL (3 mL) Inpn Commonly known as: HumuLIN N NPH Insulin KwikPen Inject subcutaneously 15 units in the AM and 15 units in the PM. What changed: additional instructions Quantity: 15 mL Refills: 5 TAKE these medications, which you [...] Quantity: 150 strip Refills: 5 blood-glucose meter Mis Commonly known as: [employer] VERIO SYSTEM Use as instructed. Quantity: 1 [...] (0.1 mg total) by mouth if needed. Quantity: 60 tablet Refills: 0 doxazosin 8 MG tablet Commonly known as: CARDURA 8 mg 2 times a day. Refills: 0 entecavir 0.5 MG tablet Commonly known as: BARACLUDE Take 1 tablet (0.5 mg total) by mouth every other day. Quantity: 15 tablet Refills: 11 famotidine 20 MG tablet Commonly known as: PEPCID Take 20 mg by mouth daily. Refills: 0 lancets 33 gauge Misc Commonly known as: CrowdGatherTOUCH DELICA LANCETS Use 1 strip as directed [...] as instructed. Quantity: 150 each Refills: 5 tacrolimus ER (24 HR) 1 mg Tb24 Commonly known as: ENVARSUS XR Take 2 mg by mouth daily. Quantity: 60 tablet Refills: 5 VITAMIN D2 50,000 unit capsule Generic drug: ergocalciferol Take 50,000 Units by mouth once a week. Refills: 0 * This list has 2 medication(s) that are the same as other medications prescribed for you. Read thedirections carefully, and ask your doctor or other care provider to review them with you. STOP taking these medications gabapentin 600 MG tablet Commonly known as: NEURONTIN Replaced by: gabapentin 100 MG capsule sucralfate 1 gram tablet Commonly known as: CARAFATE Where to Get Your Medications These medications were sent to [place], [place] - [address] [address] ?? cloNIDine HCl 0.1 MG tablet ?? polyethylene glycol 17 gram packet ?? torsemide 20 MG tablet You can get these medications from any pharmacy Bring a paper prescription for each of these medications ?? gabapentin 100 MG capsule Information about where to get these medications is not yet available Ask your nurse or doctor about these medications ?? insulin glulisine U-100 100 unit/mL injection ?? insulin NPH isoph U-100 human 100 unit/mL (3 mL) Inpn Reason for Admission Aiden Stauffer is a 43 y.o. 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 Has had worsening volume overload past few weeks; was planned to see outpatient Nephro but swelling become sopainful and SOB with exertion worsened so came to ED. Hospital Course By Problem Nonoliguric acute kidney injury:?? Baseline creatinine of 2. ??Nearly 10 g proteinuria with normal serum complements. Transplant nephrology followed patient. Work-up sent and hope was to get renal biopsy to determine etiology. Patientfelt to be high risk for bleeding and achieving hemostasis so patient did not want to undergo biopsy. HIV negative, syphilis negative, HBV ALEXANDRA negative/immune, HCV ALEXANDRA negative, EBV PCR negative, ANCA negative, TERESA 1:160 with DsDNA negative, and anti-GBM negative. Patient's BP was controlled below.He was given lasix 60 mg BID while inpatient and on discharge is to take torsemide 20 mg daily. He will need follow-up with renal on discharge which was arranged but unable to get in for ~ 1 month sowill need close follow-up with PCP in the meantime with weekly labs. Orthotopic liver transplant in September 2017 for Kim cirrhosis: Hepatology was consulted. 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 Home tacro initially held then restarted 01/15 per hepatology recs. He will need a tacro level as outpatient and regulatory affairs coordinator to coordinate this. ?? Type 2 diabetes: At home on 48 units of NPH in the morning and 15 units of NPH at night along with Apidra 2-4 units with meals. Did well while inpatient on NPH 15 units BID and lispro 5 units with meals with good BG control. On discharge he is to continue NPH 15 units BID and take apidra 5 units with meals. ?? Hypertension:?? Significant volume mediated hypertension. ??Continued home regimen of Coreg 50 mg twice a day, nifedipine XL 90 mg twice a day, and terazosin 10 mg twice a day. ??Clonidine 0.1 mg BID was started on 01/14, patient previously taking this PRN. His BPs improved with this and diuresis. He is to continue these meds on discharge. ?? GERD: Continued Pepcid 20 mg daily. ?? Neuropathic pain: Continue gabapentin but dose reduced to 200 mg TID based on renal function, to continue this reduced dose on discharge. Continue Tegretol 200 mg at bedtime. ?? Condition on Discharge 1. Functional Status: Normal 2. Mental Status: Normal 3. Diet / Tube Feeding / TPN: Diet Orders Diet consistent carbohydrates 3120-0655 kcal; potassium 40 meq / 1560 MG, sodium 2 gm (low) starting at 01/16 1512 As listed above 4. Respiratory / Lines & Tubes / Wounds: LABS: Renal panel weekly, tacro level per hepatology 5. Discharge Physical Exam: BP (!) 155/105 (BP Location: Right arm, Patient Position: Sitting) Pulse 74 Temp 97.7 ??F (36.5??C) (Oral) Resp 18 Wt (!) 286 lb 14.4 oz (130.1 kg) SpO2 90% BMI 44.93 kg/m?? General: alert, NAD, lying in bed comfortably, obese ENT: MMM CV: RRR, nl S1/S2, no M/R/G, edema stable to 1+ edema to mid mcknight bilaterally, 2+ DP pulses b/l Pulm: good air movement, normal WOB, CTAB Abd: soft, NT/ND, +BS Skin: no rashes, no ecchymosis Psych: normal mood, normal behavior Disposition Home independent Follow-Up Appointments Future Appointments Date Time Provider Department Center 02/28/2019 1:00 PM [facility] 03/14/2019 1:35 PM Jack Ordoñez MD [facility] OP OP Edgar Fournier MD [address] [place] [address] [facility] [address] Go on 01/21/2019 Hospital discharge follow-up [phone] [address] [place] [address] [facility] Renal Hypertension Clinic at [place] [address] On 02/28/2019 Hospital discharge follow-up 1 PM Patient Instructions / Follow-Up Items for Receiving Physician 1. Follow-up renal panel to monitor Cr and K 2. Follow-up pending labs: BK virus, Histone Ab, parvo B19 Ab, phospholipase A2 receptor Ab, CMV PCR quant, SPEP, Cryo, FLC I spent > 30 minutes in the discharge of this patient. Signed: Lonnie Valles MD 01/17/2019, 2:41 PM * Linda Magaña CM - 01/17/2019 1:39 PM EDT [facility] Date Night Caregiver Discharge Summary Patient name: Aiden Stauffer Patient : [id number] Age: 43 y.o. Gender: male Patient emergency contact: Extended Emergency Contact Information Primary Emergency Contact: Kym Stauffer Address: [facility] [address] [address] [address] [facility] Mobile Relation: Spouse Secondary Emergency Contact: Kimberly Stauffer [facility] Relation: Mother Attending provider: Lonnie Valles MD Primary care physician: Edgar Fournier MD The MD has indicated that the patient is ready for discharge. Aiden Stauffer was referred and accepted at . The patient will be transported by at ETA of Transport: 2pm Transfer Mode/Level of Care: Family Patient has follow up : PCP Edgar Fournier MD 01/21/19 AT 2PM with H/P and D/C summary faxed to PCP [phone] . 02/28/2019 1:00 PM (Arrive by 12:45 PM) RENAL FELLOW B [facility] Renal Hypertension Clinic at [facility] 03/14/2019 1:35 PM (Arrive by 1:20 PM) Jack Ordoñez MD [facility] Liver Transplant at [facility] OP DC Summary and VIMAL have been faxed to facility. The plan has been reviewed: Patient/Family Informed of Discharge Plan: Yes Plan Reviewed With Patient, Family, or Significant Other: Yes Patient and or family are aware and in agreement with the discharge plan: Yes Plan reviewed with MD and other members of the health care team: Yes Care Plan Completed: Yes No further SW needs. This plan has been reviewed with the multi-disciplinary team. * Lonnie Valles MD - 01/17/2019 1:14 PM EDT Subspecialty Follow-up Appointment Chart Note Service: Nephrology Subspecialty Follow-up Disposition: The patient requires subspecialty follow-up as noted below: Note: This information is for [facility] Scheduling use only. It is not the responsibility of the primaryinpatient service to schedule this appointment. 1. Visit type:Either Faculty or Fellow Clinic 2. Name of provider to schedule with: any provider, new patient 3. Timing: The appointment should be scheduled in 1-2 weeks. 4. Location: [place] or [facility] 5. Ok to overbook if there are no open appointment slots?: Yes 6. Reason for follow up: nephrotic range proteinuria, CKD 7. Comments: needs quick follow-up for worsening renal function 8. In case of scheduling conflict, contact Pager/Cell phone number: [phone] Lonnie Valles MD 01/17/2019 1:10 PM documented in this encounter Discharge Instructions * Discharge Instructions* Lonnie Valles MD - 01/17/2019 2:48 PM EDT Reason for hospitalization: worsened leg swelling and shortness of breath Changes in your medications: - Take clonidine 0.1 mg twice a day every day - Take torsemide 20 mg daily - Take NPH 15 units in AM and 15 units in PM, take your short acting insulin 5 units with meals When to call your doctor: If you have chest pain, shortness of breath or other concerning symptoms you should seek medical attention Follow-up: Future Appointments Date Time Provider Department Center 02/28/2019 1:00 PM RENAL FELLOW B [facility] 03/14/2019 1:35 PM Jack Ordoñez MD [facility] OP See your primary doctor within 1 week. Diet: Low sodium and low potassium diet * Attachments The following attachments cannot be sent through Care Everywhere. * Food Basics for Chronic Kidney Disease (Citizen [place]) documented in this encounter Medications at Time [...] mouth if needed. 8 blood sugar diagnostic Strp Use to test blood sugar up to 4 times a day. Diagnosis for use: E 9.65. For use with One Touch Verio meters. 150 strip 5 8 03/18/20 22 blood-glucose meter (ONETOUCH VERIO SYSTEM) [facility] Use as instructed. 1 each 8 03/18/20 22 carvedilol (COREG) 25 MG tablet Take 2 tablets (50 mg total) by mouth 2 times a day with meals. 120 tablet 5 8 03/12/20 20 cloNIDine HCl (CATAPRES) 0.1 MG tablet Take 1 tablet (0.1 mg total) by mouth if needed. 60 tablet 9 07/25/20 19 entecavir (BARACLUDE) 0.5 MG tabletIndications:S /P liver transplant ([facility]),Gastroeso phageal reflux disease, esophagitis presence not specified,CKD (chronic kidney disease) stage 3, GFR 30-59 ml/min ([facility]),Immunosup pression ([facility]) Take 1 tablet (0.5 mg total) by mouth every other day. 15 tablet 11 9 07/01/20 19 ergocalciferol (ERGOCALCIFEROL) 1,250 mcg (50,000 unit) capsule Take 50,000 Units by mouth every Monday, , and Monday. 03/18/20 22 famotidine (PEPCID) 20 MG tablet Take 20 mg by mouth daily. 07/20/20 20 fluticasone propionate (FLONASE) 50 mcg/actuation nasal spray use 2 spray(s) in each nostril daily 11 9 09/19/19 20 gabapentin (NEURONTIN) 100 MG capsuleIndications: Neuropathy Take 2 capsules (200 mg total) by mouth 3 times a day. 180 capsule 9 07/01/20 19 insulin glulisine U-100 (APIDRA U-100 INSULIN) 100 unit/mL injection Inject 5 Units subcutaneously 3 times a day with meals. 10 mL 9 02/06/20 20 insulin NPH isoph U-100 human (HUMULIN N NPH INSULIN KWIKPEN) 100 unit/mL (3 mL) InPnIndications:S/P liver transplant (CMS-HCC),Hyperglyc emia Inject subcutaneously 15 units in the AM and 15 units in the PM. 15 mL 5 9 07/01/20 19 lancets (ONETOUCH DELICA LANCETS) 33 gauge Misc Use 1 strip as directed 4 times daily before meals and at bedtime. 150 each 5 8 03/18/20 22 mycophenolate (CELLCEPT) 250 mg capsuleIndications: S/P liver transplant (CMS-HCC),Immunosup pression (CMS-HCC) Take 3 capsules (750 mg total) by mouth 2 times a day. 180 capsule 5 9 06/21/20 19 ondansetron (ZOFRAN-ODT) 4 MG disintegrating tablet [...] as needed. 100 packet 9 06/25/20 20 tacrolimus (ENVARSUS XR) 1 mg Na50Pmohmtfoqhy:S/P liver transplant (CMS-HCC),Immunosup pression (CMS-HCC) Take 2 mg by mouth daily. 60 tablet 5 9 04/16/20 19 torsemide (DEMADEX) 20 MG tablet Take 1 tablet (20 mg total) by mouth daily. 30 tablet 9 03/01/20 19 documented as of this encounter Progress Notes * Lonnie Valles MD - 01/17/2019 7:10 AM EDT Department of Internal Medicine Daily Progress Note Chief Complaint / Reason for Follow-Up Aiden Stauffer is a 43 y.o. male on hospital day 5. The principal reason for today's follow up visit is Wnkfn-ux-bituydb kidney injury ([facility] Dx). Interval History / Subjective Patient reporting LE edema is stable overall, states had some pain associated with this last night.Does have pain with swelling normally, not new. No SOB. Asking lots of questions today about plans. Would like to talk to [facility] renal and Dr. Rossi to help decide about kidney biopsy. Review of Systems (Focused) CV: no chest pain GI: no nausea Medications Scheduled Meds: ??? carBAMazepine 200 mg Oral Nightly (2100) ??? carvedilol 50 mg Oral BID WC ??? cloNIDine HCl 0.1 mg Oral BID ??? entecavir 0.5 mg Oral Every Other Day ??? ergocalciferol 50,000 Units Oral Weekly ??? famotidine 20 mg Oral Daily 0900 ??? furosemide (LASIX) injection 60 mg Intravenous BID (0900, 1700) ??? gabapentin 200 mg Oral TID ??? heparin (porcine) 5,000 Units Subcutaneous 3 times per day ??? insulin lispro 0-8 Units Subcutaneous TID AC ??? insulin lispro 5 Units Subcutaneous TID AC ??? insulin NPH 15 Units Subcutaneous BID ??? iron sucrose 300 mg Intravenous Daily ??? mycophenolate 750 mg Oral BID ??? NIFEdipine 90 mg Oral BID ??? tacrolimus ER (24 HR) 2 mg Oral DAILY 0600 ??? terazosin 10 mg Oral BID Continuous Infusions: PRN Meds: bisacodyl, calcium carbonate, dextrose 10% in water OR dextrose 10% in water, glucose, guaiFENesin, lidocaine-prilocaine, oxyCODONE OR oxyCODONE, perflutren lipid microspheres, polyethylene glycol, proMETHazine Vital Signs Temp: [97.8 ??F (36.6 ??C)-98.8 ??F (37.1 ??C)] 98.2 ??F (36.8 ??C) Heart Rate: [72-76] 76 Resp: [18] 18 BP: (124-159)/(64-91) 146/73 FiO2: [21 %] 21 % Intake/Output Summary (Last 24 hours) at 01/17/19 0707 Last data filed at 01/17/19 0513 Gross per 24 hour Intake 480 ml Output 900 ml Net -420 ml Physical Exam General: alert, NAD, lying in bed comfortably, obese ENT: MMM CV: RRR, nl S1/S2, no M/R/G, edema stable to 1+ edema to mid mcknight bilaterally, 2+ DP pulses b/l Pulm: good air movement, normal WOB, CTAB Abd: soft, NT/ND, +BS Skin: no rashes, no ecchymosis Psych: normal mood, normal behavior Laboratory Data Labs reviewed and significant for: Renal with Cr 3.98 slightly up from 3.83 Diagnostic Studies No new imaging Assessment & Plan Aiden Stauffer is a 43 y.o. male with a h/o OLT Sep 2017 for KIM cirrhosis, HTN, DM2, and CKD here with 30 lb wt gain in 1 month and found to have nephrotic range proteinuria. ?? # Nonoliguric YANDY with nephrotic range proteinuria-??renal txp working up patient and hope is for renal bx. Patient at higher risk of bleeding and IR concerned about achieving hemostasis 2/2 body habitus. Patient thinking about the bx this morning and would like to talk to renal txp and Dr. Rossi tohelp him decide what he wants to do. Will clarify with renal txp what plan is going forward for himas far as further work-up and treatment with or without the bx. - Continue to diurese with lasix 60 mg IV BID - Daily weights, discussed with RN - Strict I/Os - Start Vit D 50,000 units weekly - Start venofer 300 mg x 3 days ?? # OLT- no acute issues - Continue cellcept and entecavir - Follow-up tacro level on Monday ?? # DM2-??BG well controlled - Continue NPH 15 units BID and lispro 5 units with meals (home NPH 48 units in ??AM and 15 units in PM with apidra 2-4 units with meals) - SSI ?? # HTN- BPs overall better controlled with occasional elevations - Continue home regimen of coreg 50 mg BID, nifedipine XL 90 mg BID, terazosin 10 mg BID, and clonidine 0.1 mg BID - Diuresis as above ?? # JC - Continue home CPAP at 6 - Echo overall normal but unable to estimate pulm pressures ?? # GERD-??on pepcid ?? # Neuropathic pain - Continue gabapentin at dose reduced to 200 mg TID based on renal function - Continue tegretol 200 mg qHS - Patient not on PRN oxy at home and discussed avoiding this which patient is agreeable to, d/c oxycodone ?? Prophylaxis: heparin SQ Nutrition: Diet Orders Diet consistent carbohydrates 5017-6437 kcal; potassium 40 meq / 1560 MG, sodium 2 gm (low) starting at 01/16 1512 Code Status: Full Code Dispo: remain inpatient for possible bx, will clarify plan with txp renal as well Signed: Lonnie Valles MD Department of Internal Medicine Pager: [phone] 01/17/2019, 7:07 AM * Nikolas Santiago MD - 01/16/2019 9:40 PM EDT Patient complaining of LE edema. He thinks it is starting to swell, also pain in the legs. On exam he has 1 + edema, same as reported in the note from renal this AM. No crackles in the lungsor JVD. Has some rhonchi. Upon further questioning he denies that the pain is new. A/P - Continue current management Dr Sampson * Lonnie Valles MD - 01/16/2019 7:11 AM EDT Department of Internal Medicine Daily Progress Note Chief Complaint / Reason for Follow-Up Aiden Stauffer is a 43 y.o. male on hospital day 4. The principal reason for today's follow up visit is Vhnkb-fw-oblcuzw kidney injury (CMS Dx). Interval History / Subjective Feels like swelling is a bit worse today. Review of Systems (Focused) Lung: no SOB GI: slight nausea with Echo today Medications Scheduled Meds: ??? carBAMazepine 200 mg Oral Nightly (2099) ??? carvedilol 50 mg Oral BID WC ??? cloNIDine HCl 0.1 mg Oral BID ??? entecavir 0.5 mg Oral Every Other Day ??? ergocalciferol 50,000 Units Oral Weekly ??? famotidine 20 mg Oral Daily 0900 ??? furosemide (LASIX) injection 60 mg Intravenous BID (0900, 1700) ??? gabapentin 200 mg Oral TID ??? heparin (porcine) 5,000 Units Subcutaneous 3 times per day ??? insulin lispro 0-8 Units Subcutaneous TID AC ??? insulin lispro 5 Units Subcutaneous TID AC ??? insulin NPH 15 Units Subcutaneous BID ??? iron sucrose 300 mg Intravenous Daily ??? mycophenolate 750 mg Oral BID ??? NIFEdipine 90 mg Oral BID ??? tacrolimus ER (24 HR) 2 mg Oral DAILY 0600 ??? terazosin 10 mg Oral BID Continuous Infusions: PRN Meds: bisacodyl, calcium carbonate, dextrose 10% in water OR dextrose 10% in water, glucose, guaiFENesin, lidocaine-prilocaine, oxyCODONE OR oxyCODONE, polyethylene glycol, proMETHazine Vital Signs Temp: [97.9 ??F (36.6 ??C)-98.2 ??F (36.8 ??C)] 97.9 ??F (36.6 ??C) Heart Rate: [69-78] 69 Resp: [18] 18 BP: (119-150)/(60-77) 127/61 Intake/Output Summary (Last 24 hours) at 01/16/19 0710 Last data filed at 01/16/19 0600 Gross per 24 hour Intake 1080 ml Output 350 ml Net 730 ml Physical Exam General: alert, NAD, lying in bed comfortably, obese ENT: MMM CV: RRR, nl S1/S2, no M/R/G, 1+ edema to mid leg bilaterally, 2+ DP pulses b/l Pulm: good air movement, normal WOB, CTAB Abd: soft, NT/ND, +BS Skin: no rashes, no ecchymosis Psych: normal mood, normal behavior Laboratory Data Labs reviewed and significant for: Renal with Cr 3.83 up from 3.61, K slightly up to 5.3 Diagnostic Studies Imaging reviewed and significant for: Echo: - Left ventricle: The cavity size was [...] septum: Agitated saline contrast study showed no ?alhng-dg-ilow atrial level shunt, in the baseline state. Impressions: - Prior study date 10/10/17. - Compared to the prior study, there is no apparent septal ?flattening in the current study. Otherwise, there has been no ?significant interval change. Renal Duplex: unable to visualize arteries Assessment & Plan Aiden Stauffer is a 43 y.o. male with a h/o OLT Sep 2017 for KIM cirrhosis, HTN, DM2, and CKD here with 30 lb wt gain in 1 month and found to have nephrotic range proteinuria. ?? # Nonoliguric YANDY with nephrotic range proteinuria- working up based on renal recs with labs pending. Renal would like to get bx so IR consult placed and discussed with IR. IR felt that given his body habitus achieving hemostasis would be challenging and would be a bleeding risk. Will follow-up renal recs given IR recommendations. - Continue to diurese with lasix 60 mg IV BID - Daily weights, discussed with RN - Strict I/Os - Start Vit D 50,000 units weekly - Start venofer 300 mg x 3 days ?? # OLT- no acute issues - Restart home tacro per txp recs and check tacro level around 4th dose - Continue cellcept and entecavir ?? # DM2- BG well controlled - Continue NPH 15 units BID and lispro 5 units with meals (home NPH 48 units in AM and 15 units in PM with apidra 2-4 units with meals) - SSI ?? # HTN- BPs overall improved - Continue home regimen of coreg 50 mg BID, nifedipine XL 90 mg BID, and terazosin 10 mg BID - Continue clonidine 0.1 mg BID restarted 01/14, patient states he was taking this at home too - Diuresis as above # JC - Start home CPAP at 6 - Echo overall normal but unable to estimate pulm pressures ?? # GERD- on pepcid ?? # Neuropathic pain - Continue gabapentin at dose reduced to 200 mg TID based on renal function - Continue tegretol 200 mg qHS and PRN oxy ?? Prophylaxis: heparin SQ Nutrition: Diet Orders Diet consistent carbohydrates 6868-5434 kcal; sodium 4 gm no added salt, potassium 40 meq / 1560 MGstarting at 01/13 1052 Code Status: Full Code Dispo: remain inpatient for diuresis Signed: Lonnie Valles MD Department of Internal Medicine Pager: [phone] 01/16/2019, 7:10 AM * Lonnie Valles MD - 01/15/2019 4:59 PM EDT Department of Internal Medicine Daily Progress Note Chief Complaint / Reason for Follow-Up Aiden Stauffer is a 43 y.o. male on hospital day 3. The principal reason for today's follow up visit is Rezid-fc-suttqjw kidney injury (CMS Dx). Interval History / Subjective Patient reports some improvement in swelling of LE. Review of Systems (Focused) CV: no CP Lung: no SOB Medications Scheduled Meds: ??? carBAMazepine 200 mg Oral Nightly (2100) ??? carvedilol 50 mg Oral BID WC ??? cloNIDine HCl 0.1 mg Oral BID ??? entecavir 0.5 mg Oral Every Other Day ??? ergocalciferol 50,000 Units Oral Weekly ??? famotidine 20 mg Oral Daily 0900 ??? furosemide (LASIX) injection 60 mg Intravenous BID (0900, 1700) ??? gabapentin 200 mg Oral TID ??? heparin (porcine) 5,000 Units Subcutaneous 3 times per day ??? insulin lispro 0-8 Units Subcutaneous TID AC ??? insulin lispro 5 Units Subcutaneous TID AC ??? insulin NPH 15 Units Subcutaneous BID ??? iron sucrose 300 mg Intravenous Daily ??? mycophenolate 750 mg Oral BID ??? NIFEdipine 90 mg Oral BID ??? polyethylene glycol 17 g Oral Daily 0900 ??? tacrolimus ER (24 HR) 2 mg Oral DAILY 0600 ??? terazosin 10 mg Oral BID Continuous Infusions: PRN Meds: bisacodyl, calcium carbonate, dextrose 10% in water OR dextrose 10% in water, glucose, guaiFENesin, lidocaine-prilocaine, oxyCODONE OR oxyCODONE, proMETHazine Vital Signs Temp: [97.3 ??F (36.3 ??C)-98.5 ??F (36.9 ??C)] 98.1 ??F (36.7 ??C) Heart Rate: [65-79] 71 Resp: [16-18] 18 BP: (123-150)/(64-77) 150/77 Intake/Output Summary (Last 24 hours) at 01/15/19 1650 Last data filed at 01/15/19 1000 Gross per 24 hour Intake 496 ml Output 550 ml Net -54 ml Physical Exam General: alert, NAD, lying in bed comfortably ENT: MMM CV: RRR, nl S1/S2, no M/R/G, edema bilaterally, 2+ DP pulses b/l Pulm: good air movement, normal WOB, CTAB Abd: soft, NT/ND, +BS Skin: no rashes, no ecchymosis Psych: normal mood, normal behavior Laboratory Data Labs reviewed and significant for: Renal with Cr 3.61 slightly up from yesterday otherwise unremarkable CBC with WBC stable at 3.3, Hb stable in 9s 24 urine with nephrotic range proteinuria Diagnostic Studies No new imaging Assessment & Plan Aiden Stauffer is a 43 y.o. male with a h/o OLT Sep 2017 for KIM cirrhosis, HTN, DM2, and CKD here with 30 lb wt gain in 1 month and found to have nephrotic range proteinuria. # Nonoliguric YANDY with nephrotic range proteinuria- working up based on renal recs and plan for renal bx as soon as BP improved - Continue to diurese with lasix 60 mg IV BID - Obtain Echo per renal recs - Start Vit D 50,000 units weekly - Start venofer 300 mg x 3 days # OLT- no acute issues - Restart home tacro per txp recs and check tacro level around 4th dose - Continue cellcept and entecavir # DM2- BG well controlled - Continue NPH 15 units BID and lispro 5 units with meals (home NPH 48 units in AM and 15 units in PM with apidra 2-4 units with meals) - SSI # HTN- BPs improved but still up to 150s, need further improvement for bx - Continue home regimen of coreg 50 mg BID, nifedipine XL 90 mg BID, and terazosin 10 mg BID - Continue clonidine 0.1 mg BID restarted yesterday, patient states he was taking this at home too - Diuresis as abobe # GERD- on pepcid # Neuropathic pain - Continue gabapentin at dose reduced to 200 mg TID based on renal function - Continue tegretol 200 mg qHS and PRN oxy Prophylaxis: heparin SQ Nutrition: Diet Orders Diet consistent carbohydrates 6396-5091 kcal; sodium 4 gm no added salt, potassium 40 meq / 1560 MGstarting at 01/13 1052 Code Status: Full Code Dispo: remain inpatient for diuresis and renal bx Signed: Lonnie Valles MD Department of Internal Medicine Pager: [phone]) 01/15/2019, 4:50 PM * Bridgett Weaver PharmD - 01/15/2019 4:31 PM EDT Transplant Pharmacy Note Transplant pharmacy [...] clinical pharmacist assigned to the primary service. Bridgett Weaver PharmD Transplant Licensing Analyst Cosigned by Blake Dang PharmD at 01/18/2019 9:30 AM EDT Associated attestation - Blake Dang PharmD - 01/18/2019 9:30 AM EDT I agree with the plan of care as outlined below by the resident/fellow, and will oversee and assistin the transplant-related pharmaceutical care of the patient as needed. Christiano Dang, Pharm.D. Clinical Leasing Coordinator, Solid Organ Transplant Office [phone] Pager #[phone] (Clinical Pharmacist intelligence consultant pager [phone]) * Krishna Duggan MD - 01/15/2019 11:10 AM EDT BRIEF HEPATOLOGY NOTE Undergoing ongoing work up for nephrotic syndrome. Multiple labs and renal Duplex pending. -please re-start Envarsus at 2 mg daily. Will need level re-checked after 4 doses (around Sat AM) -continue home dose Cellcept and renally dosed entecavir as you are doing Krishna Duggan MD Gastroenterology Fellow (p) [phone] * Malinda Rhodes MD - 01/14/2019 5:46 AM EDT Hospital Medicine Attending Daily Progress Note Chief Complaint / Reason for Follow-Up Aiden Stauffer is a 43 y.o. male on hospital day 2. The principal reason for today's follow up visit is Oygcj-bf-uzeetso kidney injury (CMS Dx). Interval History Patient is a 43 yo male with pmh of KIM cirrhosis s/p OLT 09/2017, as well as CKD. Has had worsening volume overload past few weeks; was planned to see outpatient Nephro but swelling become so painful and SOB with exertion worsened so came to ED. No significant events noted overnight. This morning, patient states he has some shortness of breath unchanged. Swelling in scrotum and B/LLE somewhat improved. Review of Systems (focused) No chest pain. No abdominal pain. The rest as above. Medications Scheduled Meds: ??? carBAMazepine 200 mg Oral Nightly (2100) ??? carvedilol 50 mg Oral BID WC ??? entecavir 0.5 mg Oral Every Other Day ??? famotidine 20 mg Oral Daily 0900 ??? furosemide (LASIX) injection 60 mg Intravenous BID (0900, 1700) ??? gabapentin 300 mg Oral TID ??? heparin (porcine) 5,000 Units Subcutaneous 3 times per day ??? insulin lispro 0-8 Units Subcutaneous TID AC ??? insulin lispro 5 Units Subcutaneous TID AC ??? insulin NPH 15 Units Subcutaneous BID ??? mycophenolate 750 mg Oral BID ??? NIFEdipine 90 mg Oral BID ??? polyethylene glycol 17 g Oral Daily 0900 ??? terazosin 10 mg Oral BID Continuous Infusions: PRN Meds:calcium carbonate, dextrose 10% in water OR dextrose 10% in water, glucose, lidocaine-prilocaine, oxyCODONE OR oxyCODONE, proMETHazine Vital Signs Temp: [97.8 ??F (36.6 ??C)-98.4 ??F (36.9 ??C)] 97.8 ??F (36.6 ??C) Heart Rate: [52-81] 81 Resp: [17-20] 20 BP: (149-192)/(64-102) 179/70 Intake/Output Summary (Last 24 hours) at 01/14/19 1015 Last data filed at 01/14/19 1002 Gross per 24 hour Intake 480 ml Output 1200 ml Net -720 ml Physical Exam Gen - alert, no distress Eyes - normal conjunctiva, normal pupils ENT - moist mucosa, no OP erythema or exudates Neck - supple, no thyromegaly CV - RRR, no MRG, no elevated JVP, edema noted up to waist line. Lung - CTA, normal WOB Abd - +BS, soft nt, +distention. No rebound or guarding MSK - no clubbing, no cyanosis, no joint swelling, no muscle tenderness Skin - normal temp, no rashes Neuro - alert, oriented to self/place/time/situation, no facial assymmetry, no gross focal weakness, sensation grossly intact to light touch Psych - normal mood, normal behavior Laboratory Data Lab 01/14/19 0731 01/13/19 0610 01/11/19 2131 WBC 3.0* 2.9* 3.9 HEMOGLOBIN 9.1* 9.3* 10.0* HEMATOCRIT 27.3* 27.9* 29.4* MEAN CORPUSCULAR VOLUME 85.5 85.8 86.0 PLATELETS 183 193 218 Lab 01/14/19 0731 01/13/19 0610 01/11/19 2131 SODIUM 140 141 140 POTASSIUM 5.2 5.1 5.3 CHLORIDE 108 109 109 CO2 25 24 25 BUN 32* 30* 31* CREATININE 3.45* 3.22* 3.17* GLUCOSE 134* 147* 153* Lab 01/14/19 0731 01/13/19 0610 01/11/19 2131 CALCIUM 7.6* 7.8* 7.9* PHOSPHORUS -- 4.5 -- Lab 01/14/19 0731 INR 1.0 PROTHROMBIN TIME 13.6 Lab 01/14/19 0731 01/13/19 0610 01/11/19 2131 ALT 14 -- 11 AST 13 -- 13 ALK PHOS 137* -- 139* BILIRUBIN TOTAL 0.2 -- 0.2 BILIRUBIN DIRECT 0.03 -- 0.0 ALBUMIN 2.7* 2.8* 3.1* Diagnostic Studies EXAM: US ABDOMEN COMPLETE, US DUPLEX [id number] COMPLETE ?? DATE: 01/12/2019 12:51 PM EDT ?? INDICATION: Liver transplant/acute kidney injury. IMPRESSION: ?? Abdomen: Normal sonographic appearance of the transplant liver. ?? Liver duplex: Normal directional flow with resistive indices as detailed above. ?? Approved by Onelia Castillo DO on 01/12/2019 1:40 PM EDT ?? I have personally reviewed the images and I agree with this report. ?? Report Verified by: Earnest Malik MD at 01/12/2019 1:54 PM EDT Assessment & Plan Aiden Stauffer is a 43 y.o. male on hospital day 2. The medical issues being addressed in today's encounter are as follows: Principal Problem: Sxnsq-zp-oyybboj kidney injury (CMS Dx) Active Problems: Hypertension Diabetes mellitus (CMS Dx) Peripheral edema S/P liver transplant (CMS Dx) 43-year-old male with history of orthotopic liver transplant in September 2017 for Kim cirrhosis has chronic hypertension, type 2 diabetes, GERD and CKD presented to the hospital with nearly 30 pounds weight gain over last 1 month. Nonoliguric acute kidney injury: Baseline creatinine of 2. Nearly 10 g proteinuria with normal serum complements, LFTs -- has been going on for last few months. Appreciate renal transplant input. May need kidney biopsy - pending labs for paraproteins. Continue renal diet and IV Lasix for volume optimization as tolerated. Will discuss plan with Nephrology today. ?? Orthotopic liver transplant in September 2017 for Kim cirrhosis: Appreciate transplant hepatology input. Continue CellCept 750 mg twice a day. 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 We are holding tacrolimus. ?? Type 2 diabetes: Acceptable A1c. At home on 48 units of NPH in the morning and 15 units of NPH at night along with Apidra 2-4 units with meals. Currently acceptable blood sugars. Continue NPH 15 units twice a day.lispro 5 units with meals and sliding scale insulin. ?? Hypertension: Significant volume mediated hypertension. Continue home regimen of Coreg 50 mg twice a day, nifedipine XL 90 mg twice a day, terazosin 10 mg twice a day. IV Lasix 60 mg twice a day initiated for volume optimization. ?? GERD: Continue Pepcid 20 mg daily. ?? Neuropathic pain: Continue gabapentin 300 mg 3 times a day, Tegretol 200 mg at bedtime and when necessary oxycodone. Applying emla cream as needed. ?? DVT prophylaxis: Subcu heparin 3 times a day. ?? Diet: Diet Orders Diet consistent carbohydrates 7053-5506 kcal; sodium 4 gm no added salt, potassium 40 meq / 1560 MGstarting at 01/13 1052 Code Status: Full Code Dispo: 2 + days inpatient pending kidney work up. Malinda Rhodes MD Attending Physician Department of Internal Medicine Pager [phone] 10:15 AM, 01/14/2019 * Lacy Bryant, OT - 01/13/2019 4:17 PM EDT Occupational Therapy Initial Assessment and Discharge Name: Aiden Stauffer : 1975 Attending Physician: Lonnie Virgen, * Admission Diagnosis: No admission diagnoses are documented for this encounter. Date: 01/13/2019 Room: CD14/CD14U Reviewed Pertinent hospital course: Yes Hospital Course PT/OT: 43 y/o male presents with chief complaint of lowe extremity swelling. Admitted for acute kidney injury. PMH includes liver transplant 10/08/17, GERD, diabetes, HTN. PT/OT orders: AAT, no limits. Precautions: none Activity Level: Activity as tolerated Recommendation Recommendation: Home independently Equipment Recommendations: None Assessment/Goals/Plan Pt with no skilled acute occupational therapy [...] assistance Type of Home: House Home Entry: with railing (5 VIKRAM) Home Layout: One level Bathroom Shower/Tub: Walk-in shower Bathroom Toilet: Standard Bathroom Equipment: Grab bars in shower, Shower chair Home Equipment: Rollator, Single-point cane, Wheelchair-manual Prior Function Level of [place]: Independent ( no assistive device) ADL Assistance: Independent IADL Assistance: Independent 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) Leisure: Hobbies-yes (Comment) Leisure Activities: Fish Currently recieving therapy services: No Pain Pain Score: 10-Worst pain ever Pain Location: Back (scrotum) Pain Descriptors: Throbbing;Tightness Pain Intervention(s): Ambulation/increased activity;Repositioned Therapist reported pain to: RN Cognition Overall Cognitive Status: Within Functional Limits Cognitive Assessment: Arousal/ Alertness;Behavior;Orientation Level;Following Commands Arousal/Alertness: Alert Orientation Level: Oriented X4 [...] activites Neuromuscular Overall Sensation: Within Functional Limits (Denies numbnes and tingling) Functional Mobility Bed Mobility Rolling: Independent Supine to Sit: Independent Sit to Supine: Independent Transfers Sit to Stand: Independent Bed to Chair: (pt declined chair transfer this date) Functional Mobility: Independent (ambulating in hallway, no AD) Balance Sitting - Static: Independent Sitting-Dynamic: Independent Standing-Static: Independent Standing-Dynamic: Independent ADL Lower Body Dressing: Independent Lower Body Dressing Deficit: Don/doff R sock;Don/doff L sock Location Assessed LE Dressing: Seated edge of bed Toileting Deficit Additional Comments: Pt reports independence this date Additional Comments: pt declined further ADL participation this date 2/2 he was waiting on his wifeto assist him with a shower Position after Treatment/Safety Handoff Position after therapy session: Bed Details: RN notified;Call light/ needs within reach Alarms: Bed Alarms Status: Unchanged from previous setting Plan Plan OT Frequency: One-time visit The plan of care and recommendations assesses the patient's and/or caregiver's readiness, willingness, and ability to provide or support functional mobility and ADL tasks as needed upon discharge. Goals No goals set 2/2 pt with no skilled acute OT needs. Patient/Family Education Educated patient on the role of occupational therapy, OT plan of care, discharge recommendation, ADL training, functional mobility training and the importance of safety and fall prevention strategiesincluding need for supervision/ assistance with OOB activity and use of call light. patient verbalized understanding. OT Time Start Time: 1313 Stop Time: 1326 Time Calculation (min): 13 min OT Charges $OT Evaluation Low Complex 30 Min: 1 Procedure Lacy Bryant OTR/L Occupational Therapist Hours: [phone] Pager: [phone] Problem List Patient Active Problem List Diagnosis [...] 3, GFR 30-59 ml/min (CMS Dx) ??? Izfje-uy-eenxzxm kidney injury (CMS Dx) Past Medical History Past Medical [...] PROCEDURE 10/2016 ??? TIPS Revision 04/2017 * Elias Price, PT - 01/13/2019 2:21 PM EDT Physical Therapy Initial Assessment and Discharge Name: Aiden Stauffer : 1975 Attending Physician: Lonnie Virgen, * Admission Diagnosis: No admission diagnoses are documented for this encounter. Date: 01/13/2019 Room: CD14/CD14U Reviewed Pertinent hospital course: Yes Hospital Course PT/OT: 43 y/o male presents with chief complaint of lowe extremity swelling. Admitted for acute kidney injury. PMH includes liver transplant 10/08/17, GERD, diabetes, HTN. PT/OT orders: AAT, no limits. Precautions: none Activity Level: Activity as tolerated Assessment Patient presents near or at his reported baseline. Demonstrating independence with all observed mobility. Patient declining need to trial stairs, reports being at his baseline mobility and has no PT needs. Patient reports having assistance at home. No acute PT needs at this time. Recommendation Recommendation: Home with intermittent assistance, Anticipate no further PT needed after discharge Outcome Measures AM-PAC 6 Clicks Basic Mobility Inpatient Short Form: PT 6 Clicks Score: 24 Mobility Recommendations for Staff Patient ability: Patient ambulates in hallway Assist needed: with supervision Home Living/Prior Function Patient able to provide accurate information at this time: Yes Lives With: Spouse Assistance available: 24 hour assistance Type of Home: House Home Entry: with railing (5 VIKRAM) Home Layout: One level Bathroom Shower/Tub: Walk-in shower Bathroom Toilet: Standard Bathroom Equipment: Grab bars in shower;Shower chair Home Equipment: Rollator;Single-point cane;Wheelchair-manual Prior Function Level of [place]: Independent ( no assistive device) 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) Leisure Activities: Fish Pain Pain Score: 10-Worst pain ever Pain Location: Back (scrotum) Pain Descriptors: Throbbing;Tightness Pain Intervention(s): Ambulation/increased activity;Repositioned Therapist reported pain to: RN Vision Vision/Perception Overall Vision/ Perception: Within Functional Limits Cognition Overall Cognitive Status: Within Functional Limits Cognitive Assessment: Arousal/ Alertness;Behavior;Orientation Level;Following Commands Arousal/Alertness: Alert Orientation Level: Oriented X4 Behavior: Appropriate;Cooperative Following Commands: Follows all commands and directions without difficulty Neuromuscular Overall Sensation: Within Functional Limits (Denies numbnes and tingling) Upper Extremity UE Assessment: Strength WFL ( at least 3+/5) as observed during functional activity Lower Extremity Lower Extremity LE Assessment: Strength WFL (at least 3+/5) as observed during functional activity Functional Mobility Bed Mobility Rolling: Independent Supine to Sit: Independent Sit to Supine: Independent Transfers Sit to Stand: Independent Gait Distance (in feet): 75 Level of assistance: Independent Assistive Device: None Gait Characteristics: Steady;No LOB Stairs Number of Stairs: (Patient declining need to trial stairs) Balance Sitting - Static: Independent Sitting-Dynamic: Independent Standing-Static: Independent Standing-Dynamic: Independent Position after Therapy/Safety Handoff Position after treatment and safety handoff Position after therapy session: Bed Details: RN notified;Call light/ needs within reach Alarms: Bed Alarms Status: Unchanged from previous setting Goals No PT goals established secondary to patient [...] and use of call light; patient verbalized understanding. Plan Plan PT Frequency: One time visit The plan of care and recommendations assesses the patient's and/or caregiver's readiness, willingness, and ability to provide or support functional mobility and ADL tasks as needed upon discharge. Elias Price, PT, DPT [facility] Pager Number: [phone] Department number: [phone] Monday-Monday [phone] Time Start Time: 1313 Stop Time: 1325 Time Calculation (min): 12 min Charges $PT Evaluation Low Complex 20 [...] 3, GFR 30-59 ml/min (CMS Dx) ??? Upfth-ku-faaqrzt kidney injury (CMS Dx) Past Medical History Past Medical [...] PROCEDURE 10/2016 ??? TIPS Revision 04/2017 * Robb Hidalgo MD - 01/13/2019 11:56 AM EDT [facility] Daily Progress Note Chief Complaint / Reason for Follow-Up Aiden Stauffer is a 43 y.o. male on hospital day 1. The principal reason for today's follow up visit is Jzxex-ml-bzfowdi kidney injury (CMS Dx). Interval History C/o severe burning pain in hands and feet. Review of Systems (focused) Medications Scheduled Meds: ??? carBAMazepine 200 mg Oral Nightly (2100) ??? carvedilol 50 mg Oral BID WC ??? entecavir 0.5 mg Oral Every Other Day ??? famotidine 20 mg Oral Daily 0900 ??? furosemide (LASIX) injection 60 mg Intravenous BID (0900, 1700) ??? gabapentin 300 mg Oral TID ??? heparin (porcine) 5,000 Units Subcutaneous 3 times per day ??? insulin lispro 0-8 Units Subcutaneous TID AC ??? insulin lispro 5 Units Subcutaneous TID AC ??? insulin NPH 15 Units Subcutaneous BID ??? mycophenolate 750 mg Oral BID ??? NIFEdipine 90 mg Oral BID ??? oxyCODONE 10 mg Oral Once ??? terazosin 10 mg Oral BID Continuous Infusions: PRN Meds:dextrose 10% in water OR dextrose 10% in water, glucose, lidocaine- prilocaine, ondansetron, oxyCODONE OR oxyCODONE Vital Signs Temp: [97.5 ??F (36.4 ??C)-98.4 ??F (36.9 ??C)] 98.4 ??F (36.9 ??C) Heart Rate: [70-85] 85 Resp: [16-20] 20 BP: (141-161)/(75-97) 161/80 Intake/Output Summary (Last 24 hours) at 01/13/19 1156 Last data filed at 01/12/19 1413 Gross per 24 hour Intake 480 ml Output 0 ml Net 480 ml Physical Exam General appearance: NAD, conversant Lungs: Clear to auscultation CV: RRR, no MRGs Abdomen: Soft, nontender , significant abdominal wall oedema Extremities: Noted b/l peripheral edema Laboratory Data Lab 01/13/19 0610 01/11/19 2131 WBC 2.9* 3.9 HEMOGLOBIN 9.3* 10.0* HEMATOCRIT 27.9* 29.4* MEAN CORPUSCULAR VOLUME 85.8 86.0 PLATELETS 193 218 Lab 01/13/1910 01/11/192130 SODIUM 141 140 POTASSIUM 5.1 5.3 CHLORIDE 109 109 CO2 24 25 BUN 30* 31* CREATININE 3.22* 3.17* GLUCOSE 147* 153* Lab 01/13/1960901/11/192130 CALCIUM 7.8* 7.9* PHOSPHORUS 4.5 -- Lab 01/13/1960901/11/19 213 ALT -- 11 AST -- 13 ALK PHOS -- 139* BILIRUBIN TOTAL -- 0.2 BILIRUBIN DIRECT -- 0.0 ALBUMIN 2.8* 3.1* Lab 01/12/19 0233 COLOR, URINE Yellow CLARITY Clear SPECIFIC GRAVITY, URINE 1.025 PH UA 6.0 PROTEIN UA >=300 mg/dL* GLUCOSE UA 100 mg/dL* KETONES UA Negative BILIRUBIN UA Negative BLOOD UA Moderate* NITRITE UA Negative UROBILINOGEN UA 0.2 E.U./dL LEUKOCYTES UA Negative RBC UA 5* WBC UA 2 BACTERIA Rare* HYALINE CASTS 3* MUCUS Present* No results found for: NTPROBNP Lab Results Component Value Date TSH 2.02 12/20/2017 FREET4 1.03 10/20/2017 Lab 01/13/19 0924 01/12/19 2143 01/12/19 1833 01/12/19 1353 POC GLU MONITORING DEVICE 108* 218* 203* 144* Diagnostic Studies X-ray Chest Pa And Lateral Result Date: 01/12/2019 IMPRESSION: No acute cardiopulmonary abnormality. Approved by Leeroy Jo MD on 01/12/2019 1:26 AM EDT I have personally reviewed the images and I agree with this report. Report Verified by: Tray Villalobos MD at 01/12/2019 2:12 AM EDT Us Abdomen Complete Result Date: 01/12/2019 IMPRESSION: Abdomen: Normal sonographic appearance of the transplant liver. Liver duplex: Normal directional flow with resistive indices as detailed above. Approved by Onelia Castillo DO on 01/12/2019 1:40PM EDT I have personally reviewed the images and I agree with this report. Report Verified by: Earnest Malik MD at 01/12/2019 1:54 PM EDT Us Duplex Skb-ufc-jjuwyug Comp Result Date: 01/12/2019 IMPRESSION: Abdomen: Normal sonographic appearance of the transplant liver. Liver duplex: Normal directional flow with resistive indices as detailed above. Approved by Onelia Castillo DO on 01/12/2019 1:40PM EDT I have personally reviewed the images and I agree with this report. Report Verified by: Earnest Malik MD at 01/12/2019 1:54 PM EDT The images associated with the above reports were personally reviewed. Assessment & Plan Aiden Stauffer is a 43 y.o. male on hospital day 1. 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 He is here with Lab Results Component Value Date URICACID 7.0 11/23/2017 Lab Results Component Value Date TREPIA Negative 08/21/2017 [id number] Nonreactive 01/13/2019 HCVAB Nonreactive 10/08/2017 HEPBSAG Nonreactive 12/13/2018 No results found for: ANCAMYELO, ANCEPROT3, CANCA, PANCA Lab Results Component Value Date ANASCREEN Negative 08/21/2017 C4 39 01/12/2019 C3 133 01/12/2019 RF <10.0 01/13/2019 Nonoliguric acute kidney injury: Baseline creatinine of 2. Nearly 10 g proteinuria with normal serum complements, LFTs has been going on for last few months. Appreciate renal transplant input. May need kidney biopsy - pending labs for paraproteins. Continue renal diet and IV Lasix for volume optimization Orthotopic liver transplant in September 2017 for Kim cirrhosis: Appreciate transplant hepatology input. Continue CellCept 750 mg twice a day and 2 MG daily. 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 Type 2 diabetes: Acceptable A1c. At home on 48 units of NPH in the morning and 15 units of NPH at night along with Apidra 2-4 units with meals. Currently acceptable blood sugars. Continue NPH 15 units twice a day.lispro 5 units with meals and sliding scale insulin. Hypertension: Significant volume mediated hypertension. Continue home regimen of Coreg 50 mg twice a day, nifedipine XL 90 mg twice a day, terazosin 10 mg twice a day. IV Lasix 60 mg twice a day initiated for volume optimization. GERD: Continue Pepcid 20 mg daily. Neuropathic pain: Continue gabapentin 300 mg 3 times a day, Tegretol 200 mg at bedtime and when necessary oxycodone. Applying emla cream as needed. DVT prophylaxis: Subcu heparin 3 times a day. Diet: Diet Orders Diet consistent carbohydrates 7799-0474 kcal; sodium 4 gm no added salt, potassium 40 meq / 1560 MGstarting at 01/13 1052 Code Status: Full Code Possible kidney biopsy , continued volume optimization . Anticipate 3-4 days of hospitalization. ROBB HIDALGO MD Attending Physician Department of Internal Medicine Pager ([place] [phone]): [phone] 11:56 AM, 01/13/2019 * Renato Foy MD - 01/11/2019 9:18 PM EDT ED Attending Attestation Note Date of service: 01/12/2019 This patient was seen by the resident physician. I have seen and examined the patient, agree with the workup, evaluation, management and diagnosis. The care plan has been discussed and I concur. My assessment reveals a 43 y.o. male nontoxic appearing patient. Afebrile. Normal white blood cell count.. Progressively worsening renal function with acute renal failure on chronic renal failure. Patient's albumin is low but stable. Diffuse edema without known history of heart failure, concerning for nephropathy. Presentation is not consistent with venous thromboembolic disease. documented in this encounter H&P Notes * Hilton Whiting DO - 01/12/2019 8:08 AM EDT Images from the original note were not included. [facility] DEPARTMENT OF INTERNAL MEDICINE HISTORY & PHYSICAL Patient: Aiden Stauffer CSN: [id number] Chief Complaint Mjdrb-dy-adxdsub kidney injury ([facility] Dx) History of Present Illness Mr. Aiden Stauffer is a 43 yo Male with PMH of OLT in 09/2017 d/t KIM cirrhosis, GERD, HTN, DM, CKD who presents with weakness and worsening BLE swelling. Seen at OSH yesterday with complaints of increased BLE and abdominal edema. His Cr was elevated to 3.4 per report. Transplant was notified and made outpatient nephrology referral. He came in today because he did not feel like he could wait to getin to see nephrology. He says he has been gaining weight and fluid for a couple months. He estimates he has gained about 15 pounds during this time. He says his edema has rapidly progressed over the last several day and now involves his scrotum. Along with this weight gain he feels more short of breath and becomes winded with minimal exertion. He says he had basically no physical limitation before this episode started. He admits to 3-4 week history of chronic cough and says he has had diagnosisof bronchitis in the past. He says his bronchitis is causing his ears to feel full and he can no longer hear out of his left ear. His cough is productive of whitish sputum. He says he was diagnosed wi th pneumonia about a week ago and was given cephalexin and then amoxicillin. Review of outside medications shows 4 courses of antibiotics since late October. He received ibuprofen 800 mg x 30 on 01/01/19. He denies history of heart or lung disease. He had a LHC in 05/2018 which showed no evidence of coronary artery disease. In the ED he was afebrile with elevated BP. Lab workup revealed BUN 31, Cr 3.17, WBC 3.9, Hgb 10, Alk Phos 139, AST/ALT 13/11, Albumin 3.1. CXR showed no acute abnormality. UA with >= 300 mg/dL protein, moderate blood, leukocyte negative. Urine chemistry showed > 1000 mg/dL protein. Review of Systems Review of Systems Constitutional: Positive for activity change and unexpected weight change (+15 lbs). Negative for chills and fever. HENT: Positive for congestion, ear pain, hearing loss and sinus pressure. Negative for rhinorrhea, sore throat, tinnitus and trouble swallowing. Respiratory: Positive for cough and shortness of breath (With exertion). Cardiovascular: Positive for leg swelling. Negative for chest pain and palpitations. Gastrointestinal: Positive for abdominal distention, abdominal pain and diarrhea. Negative for blood in stool, nausea and vomiting. Genitourinary: Positive for frequency, hematuria and scrotal swelling. Negative for difficulty urinating and dysuria. Musculoskeletal: Positive for back pain. Negative for arthralgias. Skin: Negative for rash and wound. Neurological: Negative for dizziness and light-headedness. Past Medical History Past Medical History: Diagnosis [...] ??? Diabetes Sister Social History Social History Social History ??? Marital status: Spouse name: N/A ??? Number of children: N/A ??? Years of education: N/A Occupational History ??? Not on file. Social History Main Topics ??? Smoking status: Never Smoker ??? Smokeless tobacco: Never Used ??? Alcohol use No ??? Drug use: No ??? Sexual activity: Not on file Other Topics Concern ??? Not on file Social History Narrative ??? No narrative on file Medications Allergies: Allergies Allergen Reactions ??? Codeine Other (See Comments) Becomes hyper Home Meds: Prior to Admission medications as of 01/12/19 0251 Medication Sig Taking? aspirin 81 MG chewable tablet Chew 1 tablet (81 mg total) by mouth daily with breakfast. Yes blood sugar diagnostic Strp Use to test blood sugar up to 4 times a day. Diagnosis for use: E 9.65.For use with One Touch Verio meters. Yes blood-glucose [place] (ONETOUCH VERIO SYSTEM[place] [facility] [place]. Yes carBAMazepine (TEGRETOL) 200 mg tablet Take 200 mg by mouth at bedtime. Yes carvedilol (COREG) 25 MG tablet Take 2 tablets (50 mg total) by mouth 2 times a day with meals. Yes cloNIDine HCl (CATAPRES) 0.1 MG tablet Take 0.1 mg by mouth if needed. Yes doxazosin (CARDURA) 8 MG tablet 8 mg 2 times a day. Yes famotidine (PEPCID) 20 MG tablet Take 20 mg by mouth daily. Yes insulin glulisine U-100 (APIDRA U-100 INSULIN) 100 unit/mL injection Inject 2-4 Units subcutaneously 3 times a day with meals. Yes insulin NPH isoph U-100 human (HUMULIN N NPH INSULIN KWIKPEN) 100 unit/mL (3 mL) InPn Inject subcutaneously 50 units in the AM and 17 units in the PM. Patient taking differently: Inject subcutaneously 48 units in the AM and 15 units in the PM. Yes lancets (ONETOUCH DELICA LANCETS) 33 gauge [facility] [place] 1 strip as directed 4 times [...] with insulin pen. Use as instructed. Yes sucralfate (CARAFATE) 1 gram tablet Take 1 g by mouth 3 times a day. Yes tacrolimus (ENVARSUS XR) 1 mg Tb24 Take 2 mg by mouth daily. Yes entecavir (BARACLUDE) 0.5 MG tablet Take 1 tablet (0.5 mg total) by mouth every other day. ergocalciferol (VITAMIN D2) 50,000 unit capsule Take 50,000 Units by mouth once a week. gabapentin (NEURONTIN) 600 MG tablet Take 800 mg by mouth 3 times a day. Taking 800mg in the AM, 1200mg at 6pm, and then 800mg at 9pm Inpatient Meds: Scheduled: ??? carBAMazepine 200 mg Oral Nightly (2100) ??? carvedilol 50 mg Oral BID WC ??? [START ON 01/13/2019] entecavir 0.5 mg Oral Every Other Day ??? famotidine 20 mg Oral Daily 0900 ??? gabapentin 600 mg Oral TID ??? heparin (porcine) 5,000 Units Subcutaneous 3 times per day ??? insulin lispro 0-8 Units Subcutaneous TID AC ??? insulin NPH 15 Units Subcutaneous BID ??? mycophenolate 750 mg Oral BID ??? NIFEdipine 90 mg Oral BID ??? tacrolimus ER (24 HR) 2 mg Oral Daily 0900 ??? terazosin 10 mg Oral BID Continuous: PRN: dextrose 10% in water OR dextrose 10% in water, glucose, ondansetron Vital Signs Temp: [97.8 ??F (36.6 ??C)-98.7 ??F (37.1 ??C)] 98.7 ??F (37.1 ??C) Heart Rate: [74-88] 85 Resp: [16] 16 BP: (158-179)/(86-114) 159/86 No intake or output data in the 24 hours ending 01/12/19 0742 Physical Exam Physical Exam Vitals reviewed. Constitutional: He is oriented to person, place, and time. He appears well- developed and well-nourished. No distress. HENT: Head: Normocephalic and atraumatic. Right Ear: No drainage. No decreased hearing is noted. Left Ear: No drainage. Tympanic membrane is not perforated and not erythematous. Decreased hearing is noted. Eyes: Pupils are equal, round, and reactive to light. Conjunctivae and EOM are normal. No scleral icterus. Neck: Normal range of motion. Neck supple. Cardiovascular: Normal rate, regular rhythm and normal heart sounds. Exam reveals no gallop and no friction rub. No murmur heard. Pulmonary/Chest: Effort normal. He has wheezes (Diffuse). Abdominal: He exhibits distension. There is tenderness. 1-2+ pitting edema in lower abdominal wall Genitourinary: Right testis shows swelling. Left testis shows swelling. Musculoskeletal: He exhibits edema. He exhibits no tenderness. Right upper leg: He exhibits edema. Left upper leg: He exhibits edema. Right lower leg: He exhibits edema. Left lower leg: He exhibits edema. 2-3+ pitting edema into lower abdomen Neurological: He is alert and oriented to person, place, and time. No cranial nerve deficit. Coordination normal. Skin: Skin is warm and dry. He is not diaphoretic. Nails show no clubbing. Psychiatric: He has a normal mood and affect. His speech is normal and behavior is normal. Laboratory Data Lab 01/11/192130 WBC 3.9 HEMOGLOBIN 10.0* HEMATOCRIT 29.4* MEAN CORPUSCULAR VOLUME 86.0 PLATELETS 218 Lab 01/11/192130 SODIUM 140 POTASSIUM 5.3 CHLORIDE 109 CO2 25 BUN 31* CREATININE 3.17* GLUCOSE 153* CALCIUM 7.9* Lab 01/11/191 ALT 11 AST 13 ALK PHOS 139* BILIRUBIN TOTAL 0.2 BILIRUBIN DIRECT 0.0 ALBUMIN 3.1* Lab 01/12/19 0233 COLOR, URINE Yellow CLARITY Clear PROTEIN UA >=300 mg/dL* PH UA 6.0 SPECIFIC GRAVITY, URINE 1.025 GLUCOSE UA 100 mg/dL* BLOOD UA Moderate* LEUKOCYTES UA Negative NITRITE UA Negative BILIRUBIN UA Negative UROBILINOGEN UA 0.2 E.U./dL RBC UA 5* WBC UA 2 BACTERIA Rare* Specialty labs: Lab name 12/13/18 1232 01/11/19 2131 ALT 11 11 AST 15 13 HEP B C TOTAL AB Nonreactive -- HEPATITIS B SURFACE ANTIBODY Reactive* -- HEP B VIRAL DNA IU/ML Not Detected -- LOG 10 HBV IU/ML See Note -- Lab name 09/13/18 1205 10/23/18 1346 12/13/18 1232 TACROLIMUS BLOOD 3.8* 1.3* -- 2.6* Diagnostic Studies X-ray Chest PA and Lateral Final Result IMPRESSION: No acute cardiopulmonary abnormality. Approved by Leeroy Jo MD on 01/12/2019 1:26 AM EDT I have personally reviewed the images and I agree with this report. Report Verified by: Tray Villalobos MD at 01/12/2019 2:12 AM EDT US Retroperitoneal complete (Results Pending) US Duplex Hkw-Kvn-Qkkkwyh Comp (Results Pending) Assessment & Plan Aiden Stauffer is a 43 y.o. male with Immgu-qo-pcponav kidney injury (CMS Dx). Medical problems beingaddressed in this encounter include the following: Active Hospital Problems Diagnosis Date Noted ??? Qxqho-zw-sndyvrp kidney injury (CMS Dx) [N17.9, N18.9] 01/12/2019 ??? S/P liver transplant (CMS Dx) [Z94.4] 06/04/2018 ??? Peripheral edema [R60.9] 10/31/2017 ??? Hypertension [I10] ??? Diabetes mellitus (CMS Dx) [E11.9] Resolved Hospital Problems Diagnosis Date Noted Date Resolved No resolved problems to display. 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 - Nephrology consult - FENa 1.9% indicating intrinsic etiology - Renal US pending - Urine protein >1000, >= 300 mg/dL on UA - Protein/creatinine ratio pending - Triglycerides elevated in past, repeat lipids pending - TERESA, ANCA, C3, C4, Cryo, SPEP, UPEP pending - Consider 24 hour urine collection and studies - Hold diuresis pending Nephrology and Transplant recs - Has outpatient nephrology referral # OLT in 09/2017 d/t KIM cirrhosis - Hepatology consult - Continue Mycophenolate 750 mg BID - Envarsus 2 mg daily - Abdominal US and Doppler - Continue Entacavir 0.5 mg every other day - checking renal dose - Check Tacrolimus level in AM # T2DM - last A1c 7.4 on 12/13/18 - Home: NPH 48 units AM, 15 units PM; Apidra 2-4 units TID with meals - NPH 15 units BID - MDSSI # HTN - Coreg 25 mg BID - Nifedipine XL 90 mg BID - Terazosin 10 mg BID # GERD - Famotidine 20mg daily Nutrition: Diet Orders Diet regular starting at 01/12 0610 Code Status: Full Code Signed: HILTON WHITING DO 01/12/2019, 7:42 AM Cosigned by Lonnie Virgen MD at 01/12/2019 6:56 PM EDT Associated attestation - Lonnie Virgen MD - 01/12/2019 6:56 PM EDT Hospital Medicine Attending Supervision Note Aiden Stauffer was seen today on rounds with the resident physician. I personally interviewed and examined the patient. I reviewed the documentation by the resident and agree as documented unless otherwise stated below. Reason for today's visit: Qywyl-nm-qhnvrrf kidney injury (CMS Dx) Supplemental History / ROS Pt with Hx of KIM cirrhosis s/p OLT 09/2017, as well as CKD. Has had worsening volume overload pastfew weeks; was planned to see outpatient Nephro but swelling become so painful and SOB with exertion worsened so came to ED. Endorses minimal NSAID use, no drug use, no OTC herbal supplementals. Received treatment for PNA few weeks prior; has also had severe bronchitis, sinusitis x3mo with resultant hearing issues. Supplemental Exam: Gen: appears well, obese CV: RRR, no murmur, no JVD Lungs: difficult to appreciate lung sounds, but normal WOB, mild wheezes Abd: distended but soft, mildly tender throughout, no rebound; dependent edema Neuro: alert and oriented x4, moves all extremiteis on command Medical Decision Making: I conducted an independent review of the labs, procedures, and imaging pertinent to today's encounter through the EMR. Assessment & Plan Aiden Stauffer is a 43 y.o. male on hospital day 0. The medical issues being addressed in today's encounter are as follows: Principal Problem: Soblq-po-derklko kidney injury (CMS Dx) Active Problems: Hypertension Diabetes mellitus (CMS Dx) Peripheral edema S/P liver transplant (CMS Dx) A&P per resident note with additions/corrections noted below. #YANDY in CKD GFR 23 today. FeNa 1.9%. With severe progressive edema. Denies NSAID use, had short course of abx few weeks prior. DDx broad, will pursue broad workup in setting of severity and prior OLT recipient. - renal transplant consult - renally dose meds (gabapentin dose decreased to 300 TID from 600 TID) #Hx of KIM Cirrhsis s/p OLT 09/2017 - check duplex to r/o PVT - Hepatology consult - hold tacro, check level - cont celcept, entecavir #DM2 Dose reduce insulin in setiing of severe YANDY. - NPH 15u BID, lispro 5u qAC + SSI #Generalized weakness - PT/OT #HTN Needs optimization of regimen prior to DC as takes clonidine prn. LONNIE VIRGEN MD Attending Physician Department of Internal Medicine [place]: [phone] 8:09 AM, 01/12/2019 * Kylee Kasper MD - 01/11/2019 9:18 PM EDT [facility] ED Note Date of service: 01/12/2019 Reason for Visit: Shortness of Breath Patient History HPI: Aiden Stauffer is a 43 y.o. male with PMHx of hypertension, diabetes, GERD, liver transplant on 10/08/17 presents with chief complaint of lower extremity swelling. Relatively sudden onset 2 days ago with extension slowly up towards his groin including his scrotum and lower abdominal wall. It is symmetric, not associated with any skin changes or rashes. It is painful in his bilateral lower extremities consistent with his neuropathy. Does report some right sided abdominal pain. Endorses abdominal distention. +Malaise, fatigue and dyspnea on exertion. Does report a history over the last 3-4 weeks of bronchitis . No fevers or chills. No chest pain. No nausea, vomiting, diarrhea, constipation, dysuria, hematuria. Does report he had one episode of urinary incontinence this morning. With the outside hospital yesterday and was found to have a significantly worsening YANDY to greater than 3 with baseline of 2.0. Aside from the above, patient denies any aggravating or alleviating factors or associated symptoms. Past Medical History: Diagnosis Date ??? Acute [...] TIPS PROCEDURE 10/2016 ??? TIPS Revision 04/2017 Aiden Stauffer reports that he has never smoked. He has never used smokeless tobacco. He reports thathe does not drink alcohol or use drugs. Previous Medications ASPIRIN 81 MG CHEWABLE TABLET Chew 1 tablet (81 mg total) by mouth daily with breakfast. BLOOD SUGAR DIAGNOSTIC STRP Use to test blood sugar up to 4 times a day. Diagnosis for use: E 9.65.For use with One Touch Verio meters. BLOOD-GLUCOSE METER (ImageSpikeUCH VERIO SYSTEM) [facility] [place] as instructed. CARBAMAZEPINE (TEGRETOL) 200 MG TABLET Take 200 mg by mouth at bedtime. CARVEDILOL (COREG) 25 MG TABLET Take 2 tablets (50 mg total) by mouth 2 times a day with meals. CLONIDINE HCL (CATAPRES) 0.1 MG TABLET Take 0.1 mg by mouth if needed. DOXAZOSIN (CARDURA) 8 MG TABLET 8 mg 2 times a day. ENTECAVIR (BARACLUDE) 0.5 MG TABLET Take 1 tablet (0.5 mg total) by mouth every other day. ERGOCALCIFEROL (VITAMIN D2) 50,000 UNIT CAPSULE Take 50,000 Units by mouth once a week. FAMOTIDINE (PEPCID) 20 MG TABLET Take 20 mg by mouth daily. GABAPENTIN (NEURONTIN) 600 MG TABLET Take 800 mg by mouth 3 times a day. Taking 800mg in the AM, 1200mg at 6pm, and then 800mg at 9pm INSULIN GLULISINE U-100 (APIDRA U-100 INSULIN) 100 UNIT/ML INJECTION Inject 2-4 Units subcutaneously 3 times a day with meals. INSULIN NPH ISOPH U-100 HUMAN (HUMULIN N NPH INSULIN KWIKPEN) 100 UNIT/ML (3 ML) INPN Inject subcutaneously 50 units in the AM and 17 units in the PM. LANCETS (ONETOUCH DELICA LANCETS) 33 GAUGE MISC Use 1 strip as directed 4 times daily before meals and at bedtime. MYCOPHENOLATE (CELLCEPT) 250 MG CAPSULE Take 3 capsules (750 mg total) by mouth 2 times a day. NIFEDIPINE (PROCARDIA-XL) 90 MG (OSM) 24 HR TABLET Take 90 mg by mouth 2 times a day. ONDANSETRON (ZOFRAN-ODT) 4 MG DISINTEGRATING TABLET every 8 hours as needed. PEN NEEDLE, DIABETIC 32 GAUGE X 5/32 NDLE Use as directed to inject insulin 4 times daily. PEN NEEDLE, DIABETIC 32 GAUGE X 5/32 NDLE For use with insulin pen. Use as instructed. SUCRALFATE (CARAFATE) 1 GRAM TABLET Take 1 g by mouth 3 times a day. TACROLIMUS (ENVARSUS XR) 1 MG TB24 Take 2 mg by mouth daily. Allergies: Allergies as of 01/11/2019 - Fully Reviewed 01/11/2019 Allergen Reaction Noted ??? Codeine Other (See Comments) 08/18/2017 Review of Systems ROS: 14 point review of systems performed and is negative except as mentioned in HPI above. Physical Exam ED Triage Vitals [01/11/192123] Vital Signs Group Temp 97.8 ??F (36.6 ??C) Temp src Heart Rate 87 Heart Rate Source Resp 16 SpO2 94 % BP (!) 179/99 MAP (mmHg) BP Location BP Method Patient Position SpO2 94 % O2 Device General: WDWN male in NAD, nontoxic appearing although is obviously fatigued HEENT: Normocephalic, atraumatic, MMM. No facial asymmetry Eyes: Anicteric, EOMI, PERRL Neck: Supple, full ROM, no bony TTP, no paraspinal TTP, no LAD Pulmonary: CTA bl, no wheezes, rales, rhonchi, no increased WOB or tachypnea, no chest wall TTP or visible deformities Cardiac: Regular rate and rhythm, no m/r/g, no JVD Abdomen: Soft, +distended, diffusely tender with worst TTP in RUQ, no CVA tenderness. Scrotal swelling without overlying cellulitic change or palpable crepitance concerning for Amanda's gangrene appreciated. Extremities: Warm, 2+ radial pulses b/l, 2+ DP pulses b/l. No extremity deformity or tenderness appreciated. 3+ pitting edema symmetrically bilateral lower extremities extending from soles of his feet up to his groin Skin: No rashes or bruises, no appreciable pallor Neuro: Awake, alert, moving UE and LE spontaneously, CN 2-12 grossly intact, pt observed ambulatingwith minimal difficulty Psych: Mood and affect appropriate for situation, denies SI/HI/AVH Diagnostic Studies Labs: Please see electronic medical record for any tests performed in the ED Radiology: Please see electronic medical record for any tests performed in the ED Emergency Department Procedures Procedures ED Course and MDM Aiden Stauffer is a 43 y.o. male with a history and presentation as described above in HPI. The patient was evaluated by myself and the ED Attending Physician, Dr. Foy and my R4, Dr. Isidro. All management and disposition plans were discussed and agreed upon. Appropriate labs and diagnostic studies were reviewed as they were made available. Pertinent laboratory studies in medical decision makingare listed below. Upon presentation, the patient was hemodynamically stable and although appeared quite fatigued, wasin no apparent distress. Physical exam not concerning for acute sepsis, hepatic encephalopathy, SBPor necrotizing fasciitis. Laboratory evaluation from triage notable for normal LFTs apart from an elevated alk phos to 139 consistent with acute phase reaction. BMP showed no electrolyte derangement but a significantly elevated creatinine from patient's baseline to 3.17. CBC at patient's approximate baseline with no leukocytosis and a stable anemia. UA shows significant proteinuria concerning foracute kidney injury versus nephrotic syndrome. Discussed patient with the transplant hepatology serv ice who feels he needs admission for workup of his renal dysfunction as well as management of his suspected volume overload.The patient will continue to be monitored here in the emergency department until which time he is moved to his new treatment location. Impression 1. YANDY (acute kidney injury) (CMS Dx) 2. 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 Pt was recently treated for PNA with cephalexin and amox 7 days ago. He has baseline CKD with Scr 2.4 -1.94 in August -October 2018. Reports that he has had proteinuria for a while and under bread wrapper care. Heavy proteinuria developed in April 2018 but was not quantified. NO biopsy was done. He deniedexposure to NSAIDS, or herbals or OTC meds Subjective Feels better , edema is less Weight are down Anxious about biopsy and warried about complications History Past Medical History: Diagnosis Date ??? [...] of Onset ??? Diabetes Sister Social History Substance Use Topics ??? Smoking status: Never Smoker ??? Smokeless tobacco: Never Used ??? Alcohol use No HPI ROS General : No fevers chills sweats, anorexia, ENT : No ear pain, hearing loss sinus pain CV : No chest pain, palpitations, Denied SOB + ankle swelling RS : No cough, wheeze, sputum, haemoptysis. GIT : No N, V, abdominal pain, C, D, GUT : No dysuria, frequency, urgency, heamaturia, flank pain. MSK : No muscular pain, cramps, weakness, Neuro : No faints, falls, fits, MACK, Skin : No rash, itch, Haem : No lumps, bruising, bleeding, Psych : No anxiety, depressed mood, memory loss. Allergies Allergen Reactions ??? Codeine Sulfate Hyper ??? Codeine Other (See Comments) Becomes hyper MEDS No current facility-administered medications on file prior to encounter. Current Outpatient Prescriptions on File Prior to Encounter Medication Sig Dispense Refill ??? aspirin 81 MG chewable tablet Chew 1 tablet (81 mg total) by mouth daily with breakfast. 30 tablet 5 ??? blood sugar diagnostic Strp Use to test blood sugar up to 4 times a day. Diagnosis for use: E 9.65. For use with One Touch Verio meters. 150 strip 5 ??? blood-glucose meter ([employer] VERIO SYSTEM) [facility] [place]. 1 each 0 ??? carBAMazepine (TEGRETOL) 200 mg tablet Take 200 mg by mouth at bedtime. ??? carvedilol (COREG) 25 MG tablet Take 2 tablets (50 mg total) by mouth 2 times a day with meals.120 tablet 5 ??? cloNIDine HCl (CATAPRES) 0.1 MG tablet Take 0.1 mg by mouth if needed. ??? doxazosin (CARDURA) 8 MG tablet 8 mg 2 times a day. ??? famotidine (PEPCID) 20 MG tablet Take 20 mg by mouth daily. ??? insulin glulisine U-100 (APIDRA U-100 INSULIN) 100 unit/mL injection Inject 2-4 Units subcutaneously 3 times a day with meals. ??? insulin NPH isoph U-100 human (HUMULIN N NPH INSULIN KWIKPEN) 100 unit/mL (3 mL) InPn Inject subcutaneously 50 units in the AM and 17 units in the PM. (Patient taking differently: Inject subcutaneously 48 units in the AM and 15 units in the PM. ) 15 mL 5 ??? lancets (C[employer]CH DELICA LANCETS) 33 gauge [facility] [place] 1 strip as directed 4 times [...] Use as instructed. 150 each 5 ??? sucralfate (CARAFATE) 1 gram tablet Take 1 g by mouth 3 times a day. ??? tacrolimus (ENVARSUS XR) 1 mg Tb24 Take 2 mg by mouth daily. 60 tablet 5 ??? entecavir (BARACLUDE) 0.5 MG tablet Take 1 tablet (0.5 mg total) by mouth every other day. 15 tablet 11 ??? ergocalciferol (VITAMIN D2) 50,000 unit capsule Take 50,000 Units by mouth once a week. ??? gabapentin (NEURONTIN) 600 MG tablet Take 800 mg by mouth 3 times a day. Taking 800mg in the AM, 1200mg at 6pm, and then 800mg at 9pm Scheduled Meds: ??? carBAMazepine 200 mg Oral Nightly (2100) ??? carvedilol 50 mg Oral BID WC ??? cloNIDine HCl 0.1 mg Oral BID ??? entecavir 0.5 mg Oral Every Other Day ??? ergocalciferol 50,000 Units Oral Weekly ??? famotidine 20 mg Oral Daily 0900 ??? furosemide (LASIX) injection 60 mg Intravenous BID (0900, 1700) ??? gabapentin 200 mg Oral TID ??? heparin (porcine) 5,000 Units Subcutaneous 3 times per day ??? insulin lispro 0-8 Units Subcutaneous TID AC ??? insulin lispro 5 Units Subcutaneous TID AC ??? insulin NPH 15 Units Subcutaneous BID ??? iron sucrose 300 mg Intravenous Daily ??? mycophenolate 750 mg Oral BID ??? NIFEdipine 90 mg Oral BID ??? tacrolimus ER (24 HR) 2 mg Oral DAILY 0600 ??? terazosin 10 mg Oral BID Continuous Infusions: PRN Meds:.bisacodyl, calcium carbonate, dextrose 10% in water OR dextrose 10% in water, glucose, guaiFENesin, lidocaine-prilocaine, perflutren lipid microspheres, polyethylene glycol, proMETHazine VITALS Temp: [97.7 ??F (36.5 ??C)-98.3 ??F (36.8 ??C)] 97.7 ??F (36.5 ??C) Heart Rate: [72-76] 74 Resp: [18] 18 BP: (124-155)/(64-105) 155/105 FiO2: [21 %] 21 % Wt Readings from Last 3 Encounters: 01/17/19 (!) 286 lb 14.4 oz (130.1 kg) 12/13/18 (!) 286 lb (129.7 kg) 09/13/18 (!) 291 lb 12.8 oz (132.4 kg) I/O this shift: In: 240 [P.O.:240] Out: - Intake/Output Summary (Last 24 hours) at 01/17/19 1237 Last data filed at 01/17/19 0900 Gross per 24 hour Intake 360 ml Output 900 ml Net -540 ml PHYSICAL EXAM Constitutional : Awake, alert, no acute distress Skin : No rash, lesions, warm to touch Head : atraumatic, Pupils equal, EOM intact grossly, No nystagmus. ENT : external ears, nose & tongue normal, Neck : No LAD , Masses RESP : No respiratory distress, wheezes scattered present CV : HR regular, HS S1 S2 nml No murmur no rub LE edema + 1 , scrotal edema improving ABD : non-distended, soft, non-tender, no mass, no palpable organomegaly, BS normal. Neuro : CN 3-12 grossly intact, MSK : joint deformity DATA Date 01/16/19699 - 01/17/1965801/17/19699 - 01/18/1960 Shift 5597-0742 5841-8193 1855-7794 24 Hour Total 4508-5922 2396-6031 1484-7553 24 Hour Total I N T A K E P.O. 360 120 480 240 240 P.O. 360 120 480 240 240 Shift Total (mL/kg) 360 (2.7) 120 (0.9) 480 (3.7) 240 (1.8) 240 (1.8) O U T P U T Urine (mL/kg/hr) 0 (0) 900 (0.9) 900 (0.3) Urine 0 900 900 Urine Occurrence 0 x 3 x 3 x Emesis/NG output 0 0 Emesis 0 0 Emesis Occurrence 0 x 0 x Stool 0 0 Stool Occurrence 0 x 0 x Stool 0 0 Shift Total (mL/kg) 0 (0) 900 (6.9) 900 (6.9) Weight (kg) 131.1 131.1 130.1 130.1 130.1 130.1 130.1 130.1 Recent Labs 01/15/19 0647 WBC 3.3* HGB 9.5* HCT 29.0* PLT 173 Recent Labs 01/15/19 0647 01/16/19 0427 01/17/19 0532 NA 140 140 141 K 4.9 5.3 4.8 CL 105 106 105 CO2 26 26 26 BUN 38* 42* 45* CREATININE 3.61* 3.83* 3.98* GLUCOSE 92 152* 90 Lab Results Component Value Date CREATININE 3.98 (H) 01/17/2019 BUN 45 (H) 01/17/2019 NA 141 01/17/2019 K 4.8 01/17/2019 CL 105 01/17/2019 CO2 26 01/17/2019 Lab Results Component Value Date PTH 164.0 (H) 01/14/2019 CALCIUM 8.1 (L) 01/17/2019 PHOS 4.8 (H) 01/17/2019 Lab Results Component Value Date XESY43M 15.8 (L) 01/14/2019 Lab Results Component Value Date WBC 3.3 (L) 01/15/2019 HGB 9.5 (L) 01/15/2019 HCT 29.0 (L) 01/15/2019 MCV 86.0 01/15/2019 PLT 173 01/15/2019 Lab Results Component Value Date IRON 61 01/15/2019 TIBC 273 01/15/2019 FERRITIN 56.3 01/15/2019 Lab Results Component Value Date KETONESU Negative 01/12/2019 BLOODU Moderate (A) 01/12/2019 BILIRUBINUR Negative 01/12/2019 UROBILINOGEN 0.2 E.U./dL 01/12/2019 PROTEINUA >=300 mg/dL (A) 01/12/2019 NITRITE Negative 01/12/2019 LEUKOCYTESUR Negative 01/12/2019 PHUR 6.0 01/12/2019 LABSPEC 1.025 01/12/2019 CLARITYU Clear 01/12/2019 COLORU Yellow 01/12/2019 SUMMARY: Aiden Stauffer is a 43 y.o.male with PUD, DM, HTN , OTL 09/2017 with HBV ALEXANDRA + , HCV AB + , ALEXANDRA - , CKD proteinuric admitted For worsening LE edema ASSESSMENT: Acute Kidney Injury on CKD VS progression of CKD Unable to access care everywhere via EPIC Unknown etiology of proteinuric CKD as not biopsy is done . DN, CNI toxicity, FSGS, MN, MGRS, IgA are on differential list. Pt has HBV ALEXANDRA positive liver , but recent HBV ALEXANDRA is negative FK levels was not high The kidneys demonstrate normal size and echogenicity. There is no hydronephrosis. The right kidney measures 9.3 x 5.4 x 6.5 cm in size. The left kidney measures 12.2 x 5.6 x 4.9 cm in size Nephrotic syndrome : UPC > 10 g/g of unknown etiology 24 collection 13 g Anemia of CKD Ref Range & Units 01/15/19 ??6:47 AM Iron 50 - 212 ug/dL 61 % Iron Saturation 15.0 - 55.0 % 22.3 TIBC 261 - 462 ug/dL 273 Ferritin 56 No hemolysis Fe IV Venofer 300 mg X 3 HTN/ JC Coreg 50 mg BID Procardia 90 mg BID , terazosin 10 mg BID , clonidine 0.1 mg BID renal doppler to evaluate for RAYNE unable to perform due to habitus Hearing loss : as per pt who was seen by ENT hearing loss is associated with fluid collection and needs drainage. CKD MBD : Vit D 15 , PTH 164 drisdol 50,000 units weekly for 8 weeks PLAN: 1. nephrotic syndrome : can switch to torsemide 20 mg daily. weigh daily , low Na/K diet. Mr. Aiden Stauffer will not able to tolerate RAAS inhibition to manage proteinuria due to progressivedecline of renal function and risks of hyperkalemia. We extensively discussed the risks and benefits of the kidney biopsy with the patient. Given the body habitus and an OLT the risks of bleeding/ difficult to control bleeding overweight the benefits of the biopsy. The biopsy may reveal primary MN , or MPGN/C3 glomerulopathyl which can potentially managed to slow down the progression of the disease. Secondary FSGS which is one of the top differential diagnoses is not amenable to specific management apart from RAAS inhibition The pt needs follow-up appointment with general nephrology clinic either with [facility] or locally within 1-2 weeks of discharge. Renal panel is to be done weekly due to tendency to hyperkalemia and deterioration of the renal function. Follow up results with CMV PCR quant ( I spoke with the lab and they will add quant to a qualitative test which turned out to be positive). 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 follow-up PLA2r ab as a biomarker of membranous nephropathy. As per Lab paste up copy camera operator will be ready in ~ 8 from the days SPEP , FLC, Cryo are in process HIV, syphilis negative , HBV ALEXANDRA negative/immune , HVC ALEXANDRA negative EBV PCR negative Complements WNL, ANCA negative , TERESA 1:160 Ds DN Ab negative anti GBM negative HTN is better controlled on the current management plan Recommend gabapentin to be lowered to 300 mg a day , given low GFR 17 Pt is not a kidney transplant candidate at this time as his Body mass index is 44.93 kg/m??.. Recommend BMI less than 40 Pt required preparation for HD dscussed w/ the staff Shelley Martinez 01/17/2019 Cosigned by Ameya Arroyo MD at 01/17/2019 11:08 PM EDT Associated attestation - Amyea Arroyo MD - 01/17/2019 11:08 PM EDT I saw and examined the patient on 01/17/19, and discussed the case with the fellow. I agree with the assessment and plan as outlined in the fellow's note. Patient is followed for monitoring of drug toxicity for being on immunosuppression with tacrolimus trough level, complete blood count, and basic metabolic profile. YANDY on CKD III Nephrotic syndrome Morbid obesity with BMI ~44 Uncontrolled HTN Sleep apnea DM2 -Follow up pending serum PLA2R Ab and paraproteinemia work up. -Deemed high bleeding risk for biopsy by IR due to obesity and progressive stage 3b CKD. -In order to be eligible for kidney transplant, he will need to lose weight and will benefit from [facility] clinic referral as outpatient. -Continue po diuretic on discharge and hold off addition of RASB given YANDY. Target BP 130/80s. -Monitor labs closely and arrange for CKD/pre ESRD care. He will like to switch nephrology care to . Set up apt with general nephrology. * NAVNEET Collins - 01/16/2019 4:27 PM EDT Interventional Radiology Consult Note Date: 01/16/2019 Patient: Aiden Stauffer : 1975 Primary Care Provider: Edgar Fournier MD Requesting Provider: Lonnie Beaz MD Chief Complaint: Shortness of Breath Reason for Consult: Evaluation for Kidney bx IR Procedure Request Received and Reviewed. HPI: Aiden Stauffer is a 43 y.o. male with a history of HTN, DM2, CKD with acute kidney injury after developing significant lower extremity edema. Patient is presenting to the IR team per request of kidney biopsy. Patient has history of hypertension and diabetes which certainly could contribute to his worsening kidney function instead of nephrotic syndrome, therefore based on the procedural risk body habitus and bleeding procedure might not be warranted if the patient has other viable options offered such kidney transplant if his kidneys continue to fail. Patient is having non-oliguric YANDY with nephrotic range proteinuria while he has been inpatient. Patient is denying abdominal pain, nausea and shortness of breath. He reports improved swelling to his LE as well. History: Past Medical History: Diagnosis Date ??? [...] of Onset ??? Diabetes Sister Social Hx: History Smoking Status ??? Never Smoker Smokeless Tobacco ??? Never Used History Drug Use No History Alcohol Use No Allergies: Allergies Allergen Reactions ??? Codeine Sulfate Hyper ??? Codeine Other (See Comments) Becomes hyper Home Medications: Prior to Admission medications Medication aspirin 81 MG chewable tablet blood sugar diagnostic Strp blood-glucose meter (to-[employer] SYSTEM) Misc carBAMazepine (TEGRETOL) 200 mg tablet carvedilol (COREG) 25 MG tablet cloNIDine HCl (CATAPRES) 0.1 MG tablet doxazosin (CARDURA) 8 MG tablet famotidine (PEPCID) 20 MG tablet insulin glulisine U-100 (APIDRA U-100 INSULIN) 100 unit/mL injection insulin NPH isoph U-100 human (HUMULIN N NPH INSULIN KWIKPEN) 100 unit/mL (3 mL) InPn lancets ([employer]CH DELICA LANCETS) 33 gauge Misc mycophenolate (CELLCEPT) 250 mg capsule NIFEdipine (PROCARDIA-XL) 90 MG (OSM) 24 hr tablet ondansetron (ZOFRAN-ODT) 4 MG disintegrating tablet pen needle, diabetic 32 gauge x 5/32 Ndle pen needle, diabetic 32 gauge x 5/32 Ndle sucralfate (CARAFATE) 1 gram tablet tacrolimus (ENVARSUS XR) 1 mg Tb24 entecavir (BARACLUDE) 0.5 MG tablet ergocalciferol (VITAMIN D2) 50,000 unit capsule gabapentin (NEURONTIN) 600 MG tablet Current Medications: Scheduled Medications: carBAMazepine 200 mg Nightly (2100) carvedilol 50 mg BID WC cloNIDine HCl 0.1 mg BID entecavir 0.5 mg Every Other Day ergocalciferol 50,000 Units Weekly famotidine 20 mg Daily 0900 furosemide (LASIX) injection 60 mg BID (0900, 1700) gabapentin 200 mg TID heparin (porcine) 5,000 Units 3 times per day insulin lispro 0-8 Units TID AC insulin lispro 5 Units TID AC insulin NPH 15 Units BID iron sucrose 300 mg Daily mycophenolate 750 mg BID NIFEdipine 90 mg BID tacrolimus ER (24 HR) 2 mg DAILY 0600 terazosin 10 mg BID IV Meds: PRN Medications: bisacodyl 10 mg Daily PRN calcium carbonate 500 mg TID PRN dextrose 10% in water 12.5 g Q15 Min PRN Or dextrose 10% in water 25 g Q15 Min PRN glucose 12 g Q15 Min PRN guaiFENesin 10 mL Q4H PRN lidocaine-prilocaine PRN oxyCODONE 2.5 mg Q4H PRN Or oxyCODONE 5 mg Q4H PRN perflutren lipid microspheres 2.2 mg ONCE PRN polyethylene glycol 17 g BID PRN proMETHazine 25 mg Q6H PRN ROS: Negative General: Denies fever, chills [...] Denies hallucinations and memory loss Vitals: Vitals: 01/16/19 0437 01/16/19 0904 01/16/19 1424 01/16/19 1500 BP: 127/61 (!) 159/91 124/64 BP Location: Right arm Right arm Right arm Patient Position: Lying Lying Lying Pulse: 69 72 74 Resp: 18 18 18 Temp: 97.9 ??F (36.6 ??C) 98.8 ??F (37.1 ??C) 98.2 ??F (36.8 ??C) TempSrc: Oral Oral Oral SpO2: 92% 90% 96% Weight: (!) 289 lb (131.1 kg) PE: Gen: Awake, alert HEENT: Normocephalic, atraumatic Neck: Supple, symmetrical, trachea midline and mobile Chest: respirations unlabored CVS: RRR ABD: surgical scar from tx liver hx & Soft : deferred EXT: Warm and well perfused NEURO: No focal deficits PSYCH: Appropriate affect Labs: Recent Labs 01/13/19 0610 01/14/19 0731 01/15/19 0647 WBC 2.9* 3.0* 3.3* HGB 9.3* 9.1* 9.5* HCT 27.9* 27.3* 29.0* MCV 85.8 85.5 86.0 PLT 193 183 173 Recent Labs 01/13/19 0610 01/14/1931 01/15/1948 01/16/19 0427 NA 141 140 140 140 K 5.1 5.2 4.9 5.3 CL 109 108 105 106 CO2 24 25 26 26 PHOS 4.5 -- 5.3* 4.9* BUN 30* 32* 38* 42* CREATININE 3.22* 3.45* 3.61* 3.83* CALCIUM 7.8* 7.6* 8.0* 8.1* Recent Labs 12/13/18 1232 01/11/19213001/14/19 0731 BILITOT 0.2 0.2 0.2 AST 15 13 13 ALT 11 11 14 ALKPHOS 132* 139* 137* Recent Labs 12/13/18 1232 01/11/19213001/14/19 0731 01/15/1948 01/16/19 0427 ALBUMIN 3.3* 3.3* 3.1* < > 2.7* 2.8* 2.7* BILIDIRECT 0.03 0.0 -- 0.03 -- -- < > = values in this interval not displayed. Recent Labs 01/14/19 0731 INR 1.0 PROTIME 13.6 Imaging: No results found for this or any previous visit (from the past 72 hours). No results found for this or any previous visit (from the past 72 hours). I personally reviewed the relevant findings from the above imaging results. Pre-Sedation Evaluation Airway: Mallampati:: II Mouth Opening:: <=2 FB TM distance:: <3 FB Neck ROM:: Limited no facial hair neck not short not intubated ASA Score: ASA: III -patient with moderate systematic disease with functional limitations Sedation specific history concerns: none of the above Medical Decision Making Assessment: Aiden Stauffer is a 43 y.o. male with above stated complexity and history. Kidney bx would be a technically challenging due to patients body habitus which would significantlydecrease diagnostic yield. IR is willing to perform procedure under CT guidance, however patient wants to discuss his further options with the nephrology team, transplant kidney and Liver transplant/Dr. Rossi regarding kidney bx and his other alternatives. Dr. Sawyer not inclined to proceed given Cr of 3.8. Dr. Silva agrees, additionally body habitus decreases ability to achieve hemostasis Plan: 1. We will hold off for procedure for now until patient receives further information and decision is made. 2. If procedure ensues we would recommend holding any anticoagulation for at least 7 days along with controlling BP below 150 systolic for at least 48 hours prior to bx. Consent: Consent pending IR procedure was reviewed with Heber Silva MD and Jack Sawyer MD Plan discussed with hospitalitis team 6 team 01/16/2019, 4:33 PM. Please call with any questions. Additional Time Spent: Time Spent with Patient: Total [id number] time spent with patient (greater than 50% of the visit was for the purpose of discussion and counseling): 30 minutes. NAVNEET COLLINS Interventional Radiology 01/16/2019, 4:33 PM [facility] IR Desk: [facility] IR: IR On-Call (after-hours, nights, wkds, holidays): * Shelley Martinez MD - 01/16/2019 12:26 PM EDT Renal Note HPI 43yo s/p OLT Sep 2017 with high risk donor HBV ALEXANDRA +, HCV Ab+, ALEXANDRA neg 2/2 KIM on entecavir, Envarsus 2mg, Cellcept 750mg BID, DM , HTN , hearing loss, JC presenting with increasing edema and notedto have Cr 3.4 associateed with nephrotic nazia proteinuria. Pt was recently treated for PNA with cephalexin and amox 7 days ago. He has baseline CKD with Scr 2.4 -1.94 in August -October 2018. Reports that he has had proteinuria for a while and under bread wrapper care. Heavy proteinuria developed in April 2018 but was not quantified. NO biopsy was done. He deniedexposure to NSAIDS, or herbals or OTC meds Subjective Feels better , edema is less No weights listed History Past Medical History: Diagnosis Date ??? [...] of Onset ??? Diabetes Sister Social History Substance Use Topics ??? Smoking status: Never Smoker ??? Smokeless tobacco: Never Used ??? Alcohol use No HPI ROS General : No fevers chills sweats, anorexia, ENT : No ear pain, hearing loss sinus pain CV : No chest pain, palpitations, ++ SOB, SOBOE + + +++ ankle swelling RS : No cough, wheeze, sputum, haemoptysis. GIT : No N, V, abdominal pain, C, D, GUT : No dysuria, frequency, urgency, heamaturia, flank pain. MSK : No muscular pain, cramps, weakness, Neuro : No faints, falls, fits, MACK, Skin : No rash, itch, Haem : No lumps, bruising, bleeding, Psych : No anxiety, depressed mood, memory loss. Allergies Allergen Reactions ??? Codeine Sulfate Hyper ??? Codeine Other (See Comments) Becomes hyper MEDS No current facility-administered medications on file prior to encounter. Current Outpatient Prescriptions on File Prior to Encounter Medication Sig Dispense Refill ??? aspirin 81 MG chewable tablet Chew 1 tablet (81 mg total) by mouth daily with breakfast. 30 tablet 5 ??? blood sugar diagnostic [facility] Use to test blood sugar up to 4 times a day. Diagnosis for use: E 9.65. For use with One Touch Verio meters. 150 strip 5 ??? blood-glucose meter (ONET[employer]CH VERIO SYSTEM) [facility] [place]. 1 each 0 ??? carBAMazepine (TEGRETOL) 200 mg tablet Take 200 mg by mouth at bedtime. ??? carvedilol (COREG) 25 MG tablet Take 2 tablets (50 mg total) by mouth 2 times a day with meals.120 tablet 5 ??? cloNIDine HCl (CATAPRES) 0.1 MG tablet Take 0.1 mg by mouth if needed. ??? doxazosin (CARDURA) 8 MG tablet 8 mg 2 times a day. ??? famotidine (PEPCID) 20 MG tablet Take 20 mg by mouth daily. ??? insulin glulisine U-100 (APIDRA U-100 INSULIN) 100 unit/mL injection Inject 2-4 Units subcutaneously 3 times a day with meals. ??? insulin NPH isoph U-100 human (HUMULIN N NPH INSULIN KWIKPEN) 100 unit/mL (3 mL) InPn Inject subcutaneously 50 units in the AM and 17 units in the PM. (Patient taking differently: Inject subcutaneously 48 units in the AM and 15 units in the PM. ) 15 mL 5 ??? lancets (ONETOUCH DELICA LANCETS) 33 gauge [facility] [place] 1 strip as directed 4 times [...] Use as instructed. 150 each 5 ??? sucralfate (CARAFATE) 1 gram tablet Take 1 g by mouth 3 times a day. ??? tacrolimus (ENVARSUS XR) 1 mg Tb24 Take 2 mg by mouth daily. 60 tablet 5 ??? entecavir (BARACLUDE) 0.5 MG tablet Take 1 tablet (0.5 mg total) by mouth every other day. 15 tablet 11 ??? ergocalciferol (VITAMIN D2) 50,000 unit capsule Take 50,000 Units by mouth once a week. ??? gabapentin (NEURONTIN) 600 MG tablet Take 800 mg by mouth 3 times a day. Taking 800mg in the AM, 1200mg at 6pm, and then 800mg at 9pm Scheduled Meds: ??? carBAMazepine 200 mg Oral Nightly (2100) ??? carvedilol 50 mg Oral BID WC ??? cloNIDine HCl 0.1 mg Oral BID ??? entecavir 0.5 mg Oral Every Other Day ??? ergocalciferol 50,000 Units Oral Weekly ??? famotidine 20 mg Oral Daily 0900 ??? furosemide (LASIX) injection 60 mg Intravenous BID (0900, 1700) ??? gabapentin 200 mg Oral TID ??? heparin (porcine) 5,000 Units Subcutaneous 3 times per day ??? insulin lispro 0-8 Units Subcutaneous TID AC ??? insulin lispro 5 Units Subcutaneous TID AC ??? insulin NPH 15 Units Subcutaneous BID ??? iron sucrose 300 mg Intravenous Daily ??? mycophenolate 750 mg Oral BID ??? NIFEdipine 90 mg Oral BID ??? tacrolimus ER (24 HR) 2 mg Oral DAILY 0600 ??? terazosin 10 mg Oral BID Continuous Infusions: PRN Meds:.bisacodyl, calcium carbonate, dextrose 10% in water OR dextrose 10% in water, glucose, guaiFENesin, lidocaine-prilocaine, oxyCODONE OR oxyCODONE, perflutren lipid microspheres, polyethylene glycol, proMETHazine VITALS Temp: [97.9 ??F (36.6 ??C)-98.8 ??F (37.1 ??C)] 98.8 ??F (37.1 ??C) Heart Rate: [69-78] 72 Resp: [18] 18 BP: (119-159)/(60-91) 159/91 Wt Readings from Last 3 Encounters: 12/13/18 (!) 286 lb (129.7 kg) 09/13/18 (!) 291 lb 12.8 oz (132.4 kg) 06/05/18 (!) 281 lb 9.6 oz (127.7 kg) I/O this shift: In: 360 [P.O.:360] Out: 0 Intake/Output Summary (Last 24 hours) at 01/16/19 1226 Last data filed at 01/16/19 0909 Gross per 24 hour Intake 1200 ml Output 150 ml Net 1050 ml PHYSICAL EXAM Constitutional : Awake, alert, no acute distress Skin : No rash, lesions, warm to touch Head : atraumatic, Pupils equal, EOM intact grossly, No nystagmus. ENT : external ears, nose & tongue normal, Neck : No LAD , Masses RESP : No respiratory distress, wheezes scattered present CV : HR regular, HS S1 S2 nml No murmur no rub LE edema + 1 , scrotal edema improving ABD : non-distended, soft, non-tender, no mass, no palpable organomegaly, BS normal. Neuro : CN 3-12 grossly intact, MSK : joint deformity DATA Date 01/15/19699 - 01/16/1965801/16/19 07 - 01/17/19 0659 Shift 0563-3569 2996-2410 7242-1671 24 Hour Total 3300-2661 4339-3485 5111-2483 24 Hour Total I N T A K E P.O. 240 248 550 6762 360 360 P.O. 240 035 207 6279 360 360 Shift Total 240 168 607 2105 360 360 O U T P U T Urine 200 150 350 0 0 Urine 200 150 350 0 0 Urine Occurrence 1 x 0 x 1 x 0 x 0 x Emesis/NG output 0 0 0 0 Emesis 0 0 0 0 Emesis Occurrence 0 x 0 x 0 x 0 x Stool 0 0 0 0 Stool Occurrence 0 x 0 x 0 x 0 x Stool 0 0 0 0 Shift Total 200 150 350 0 0 Weight (kg) Recent Labs 01/14/19 0731 01/15/19 0647 WBC 3.0* 3.3* HGB 9.1* 9.5* HCT 27.3* 29.0* PLT 183 173 Recent Labs 01/14/19 0731 01/15/19 0647 01/16/19 0427 NA 140 140 140 K 5.2 4.9 5.3 CL 108 105 106 CO2 25 26 26 BUN 32* 38* 42* CREATININE 3.45* 3.61* 3.83* GLUCOSE 134* 92 152* Lab Results Component Value Date CREATININE 3.83 (H) 01/16/2019 BUN 42 (H) 01/16/2019 NA 140 01/16/2019 K 5.3 01/16/2019 CL 106 01/16/2019 CO2 26 01/16/2019 Lab Results Component Value Date PTH 164.0 (H) 01/14/2019 CALCIUM 8.1 (L) 01/16/2019 PHOS 4.9 (H) 01/16/2019 Lab Results Component Value Date [id number] 15.8 (L) 01/14/2019 Lab Results Component Value Date WBC 3.3 (L) 01/15/2019 HGB 9.5 (L) 01/15/2019 HCT 29.0 (L) 01/15/2019 MCV 86.0 01/15/2019 PLT 173 01/15/2019 Lab Results Component Value Date IRON 61 01/15/2019 TIBC 273 01/15/2019 FERRITIN 56.3 01/15/2019 Lab Results Component Value Date KETONESU Negative 01/12/2019 BLOODU Moderate (A) 01/12/2019 BILIRUBINUR Negative 01/12/2019 UROBILINOGEN 0.2 E.U./dL 01/12/2019 PROTEINUA >=300 mg/dL (A) 01/12/2019 NITRITE Negative 01/12/2019 LEUKOCYTESUR Negative 01/12/2019 PHUR 6.0 01/12/2019 LABSPEC 1.025 01/12/2019 CLARITYU Clear 01/12/2019 COLORU Yellow 01/12/2019 SUMMARY: Aiden Stauffer is a 43 y.o.male with PUD, DM, HTN , OTL 09/2017 with HBV ALEXANDRA + , HCV AB + , ALEXANDRA - , CKD proteinuric admitted For worsening LE edema ASSESSMENT: Acute Kidney Injury on CKD VS progression of CKD Unable to access care everywhere via EPIC Unknown etiology of proteinuric CKD as not biopsy is done . DN, CNI toxicity, FSGS, MN, MGRS, IgA are on differential list. Pt has HBV ALEXANDRA positive liver , but recent HBV ALEXANDRA is negative FK levels was not high The kidneys demonstrate normal size and echogenicity. There is no hydronephrosis. The right kidney measures 9.3 x 5.4 x 6.5 cm in size. The left kidney measures 12.2 x 5.6 x 4.9 cm in size Nephrotic syndrome : UPC > 10 g/g of unknown etiology 24 collection 13 g Anemia of CKD Ref Range & Units 01/15/19 ??6:47 AM Iron 50 - 212 ug/dL 61 % Iron Saturation 15.0 - 55.0 % 22.3 TIBC 261 - 462 ug/dL 273 Ferritin 56 No hemolysis Fe IV Venofer 300 mg X 3 HTN/ JC Coreg 50 mg BID Procardia 90 mg BID , terazosin 10 mg BID , clonidine 0.1 mg BID renal doppler to evaluate for RAYNE unable to perform due to habitus Hearing loss : as per pt who was seen by ENT hearing loss is associated with fluid collection and needs drainage. 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 Needs optimization of HTN prior to potential renal biopsy gaol 120 -130 HIV, syphilis negative , HBV ALEXANDRA negative , HVC ALEXANDRA negative EBV PCR negative Complements WNL, ANCA negative , TERESA 1:160 Ds DN Ab negative anti GBM negative Cryo in process , FLC in process PLA2r Ab are pending as a part of nephrotic syndrome . As per Lab paste up copy camera operator will be ready in ~ 8-10 days Get new ECHO : has JC and pulmonary hypertension 42 in 2018 Will plan for sycuan kidney biopsy done by IR if the IR Team consider it to be safe in context of aliver transplant Case to be discussed w/ the staff Shelley Martinez 01/16/2019 Cosigned by Ameya Arroyo MD at 01/16/2019 2:30 PM EDT Associated attestation - Ameya Arroyo MD - 01/16/2019 2:30 PM EDT I saw and examined the patient on 01/16/19, and discussed the case with the fellow. I agree with the assessment and plan as outlined in the fellow's note. * Erika Rutherford, RADHA, FLOOR ASSEMBLER - 01/16/2019 10:20 AM EDT [facility] Social Work Psychosocial Assessment Aiden Stauffer [id number] 43 y.o. male White or Marital Status: Peripheral edema [R60.9] Nephrotic syndrome [N04.9] Essential hypertension [I10] YANDY (acute kidney injury) (CMS Dx) [N17.9] Bilateral lower extremity edema [R60.0] S/P liver transplant (CMS Dx) [Z94.4] Type 2 diabetes mellitus without complication, with long-term current use of insulin (CMS Dx) [E11.9, Z79.4] Acute renal failure superimposed on stage 3 chronic kidney disease, unspecified acute renal failuretype (CMS Dx) [N17.9, N18.3] Referred by: Social work consult Referred Reason: Discharge Planning History Past Medical History: Diagnosis Date ??? Acute pancreatitis ??? Ascites ??? Diabetes mellitus (CMS Dx) ??? Esophageal varices with bleeding (CMS Dx) ??? GERD (gastroesophageal reflux disease) ??? Hepatic encephalopathy (CMS Dx) ??? Hypertension ??? 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 Vitamin D deficiency History Drug Use No History Alcohol Use No Mental Health History: Patient denies hx of suicidal ideation, drug or alcohol abuse Mental Status Current Mental Status: Awake, Oriented to Person, Oriented to Place, Oriented to Time, Oriented to Situation Mental Status Prior to Admission: Unable to Assess Activities of Daily Living: Independent Current Living Arrangements Current Living Arrangements: With Family Type of Living Arrangement: Home/Apartment Living Arrangements Comments: lives with Enter the number of steps and rails to enter the residence: n/a Enter the number of steps and rails inside the residence: n/a Support Systems Next of Kin/Mounter Automatic: Kym Stauffer Next of Kin Relationship: Spouse Next of Kin Community Resources Used Prior to Admission: No Cultural/Spiritual/Language Barriers Other Pertinent Data Nondestructive Tester for Mental Health IssuesPrior to Admission: No Durable Medical Equipment Prior to Admission: [place]/number of PCP: Dr. Edgar Fournier [phone] Pharmacy: [facility] in [place], [place] Assessment/Plan SW met with patient at bedside, introduced self, explained role and provided opportunity for patient to ask questions. Patient reported that he is here for a biopsy and that he will not need home health. Patient reported he ambulates independently and has no needs for SW. 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 SW educated patient on home health. ?? Patient reports no current medical, social or financial needs for SW to follow up with at this time. Patient verbalized understanding that he may reach out to SW as needs arise. Patient/Family aware and taking part in the discharge plan. Patient and family were offered a post-acute provider list as applicable to the discharge plan and insurance provider. Patient and family were given the freedom to choose providers and financial interest(s) were disclosed as appropriate. This assessment has been reviewed with the multi-disciplinary team. JOVITA Langley [phone] * Shelley Martinez MD - 01/15/2019 2:15 PM EDT Renal Consult Initial Evaluation Note HPI 43yo s/p OLT Sep 2017 with high risk donor HBV ALEXANDRA +, HCV Ab+, ALEXANDRA neg 2/2 KIM on entecavir, Envarsus 2mg, Cellcept 750mg BID, DM , HTN , hearing loss, JC presenting with increasing edema and notedto have Cr 3.4 associateed with nephrotic nazia proteinuria. Pt was recently treated for PNA with cephalexin and amox 7 days ago. He has baseline CKD with Scr 2.4 -1.94 in August -October 2018. Reports that he has had proteinuria for a while and under bread wrapper care. Heavy proteinuria developed in April 2018 but was not quantified. NO biopsy was done. He deniedexposure to NSAIDS, or herbals or OTC meds History Past Medical History: Diagnosis Date ??? [...] of Onset ??? Diabetes Sister Social History Substance Use Topics ??? Smoking status: Never Smoker ??? Smokeless tobacco: Never Used ??? Alcohol use No HPI ROS General : No fevers chills sweats, anorexia, ENT : No ear pain, hearing loss sinus pain CV : No chest pain, palpitations, ++ SOB, SOBOE + + +++ ankle swelling RS : No cough, wheeze, sputum, haemoptysis. GIT : No N, V, abdominal pain, C, D, GUT : No dysuria, frequency, urgency, heamaturia, flank pain. MSK : No muscular pain, cramps, weakness, Neuro : No faints, falls, fits, MACK, Skin : No rash, itch, Haem : No lumps, bruising, bleeding, Psych : No anxiety, depressed mood, memory loss. Allergies Allergen Reactions ??? Codeine Sulfate Hyper ??? Codeine Other (See Comments) Becomes hyper MEDS No current facility-administered medications on file prior to encounter. Current Outpatient Prescriptions on File Prior to Encounter Medication Sig [...] 5 ??? blood-glucose [place] (ONETOUCH VERIO SYSTEM[place] [facility] [place]. 1 each 0 ??? carBAMazepine (TEGRETOL) 200 mg tablet Take 200 mg by mouth at bedtime. ??? carvedilol (COREG) 25 MG tablet Take 2 tablets (50 mg total) by mouth 2 times a day with meals.120 tablet 5 ??? cloNIDine HCl (CATAPRES) 0.1 MG tablet Take 0.1 mg by mouth if needed. ??? doxazosin (CARDURA) 8 MG tablet 8 mg 2 times a day. ??? famotidine (PEPCID) 20 MG tablet Take 20 mg by mouth daily. ??? insulin glulisine U-100 (APIDRA U-100 INSULIN) 100 unit/mL injection Inject 2-4 Units subcutaneously 3 times a day with meals. ??? insulin NPH isoph U-100 human (HUMULIN N NPH INSULIN KWIKPEN) 100 unit/mL (3 mL) InPn Inject subcutaneously 50 units in the AM and 17 units in the PM. (Patient taking differently: Inject subcutaneously 48 units in the AM and 15 units in the PM. ) 15 mL 5 ??? lancets ([employer] LANCETS) 33 gauge Misc Use 1 strip [...] Use as instructed. 150 each 5 ??? sucralfate (CARAFATE) 1 gram tablet Take 1 g by mouth 3 times a day. ??? tacrolimus (ENVARSUS XR) 1 mg Tb24 Take 2 mg by mouth daily. 60 tablet 5 ??? entecavir (BARACLUDE) 0.5 MG tablet Take 1 tablet (0.5 mg total) by mouth every other day. 15 tablet 11 ??? ergocalciferol (VITAMIN D2) 50,000 unit capsule Take 50,000 Units by mouth once a week. ??? gabapentin (NEURONTIN) 600 MG tablet Take 800 mg by mouth 3 times a day. Taking 800mg in the AM, 1200mg at 6pm, and then 800mg at 9pm Scheduled Meds: ??? carBAMazepine 200 mg Oral Nightly (2100) ??? carvedilol 50 mg Oral BID WC ??? cloNIDine HCl 0.1 mg Oral BID ??? entecavir 0.5 mg Oral Every Other Day ??? famotidine 20 mg Oral Daily 0900 ??? furosemide (LASIX) injection 60 mg Intravenous BID (0900, 1700) ??? gabapentin 200 mg Oral TID ??? heparin (porcine) 5,000 Units Subcutaneous 3 times per day ??? insulin lispro 0-8 Units Subcutaneous TID AC ??? insulin lispro 5 Units Subcutaneous TID AC ??? insulin NPH 15 Units Subcutaneous BID ??? mycophenolate 750 mg Oral BID ??? NIFEdipine 90 mg Oral BID ??? polyethylene glycol 17 g Oral Daily 0900 ??? tacrolimus ER (24 HR) 2 mg Oral DAILY 0600 ??? terazosin 10 mg Oral BID Continuous Infusions: PRN Meds:.calcium carbonate, dextrose 10% in water OR dextrose 10% in water, glucose, guaiFENesin, lidocaine-prilocaine, oxyCODONE OR oxyCODONE, proMETHazine VITALS Temp: [97.3 ??F (36.3 ??C)-98.5 ??F (36.9 ??C)] 98.1 ??F (36.7 ??C) Heart Rate: [65-79] 71 Resp: [16-18] 18 BP: (123-150)/(64-77) 150/77 Wt Readings from Last 3 Encounters: 12/13/18 (!) 286 lb (129.7 kg) 09/13/18 (!) 291 lb 12.8 oz (132.4 kg) 06/05/18 (!) 281 lb 9.6 oz (127.7 kg) I/O this shift: In: 240 [P.O.:240] Out: 200 [Urine:200] Intake/Output Summary (Last 24 hours) at 01/15/19 1414 Last data filed at 01/15/19 1000 Gross per 24 hour Intake 736 ml Output 550 ml Net 186 ml PHYSICAL EXAM Constitutional : Awake, alert, no acute distress Skin : No rash, lesions, warm to touch Head : atraumatic, Pupils equal, EOM intact grossly, No nystagmus. ENT : external ears, nose & tongue normal, Neck : No LAD , Masses RESP : No respiratory distress, wheezes scattered present CV : HR regular, HS S1 S2 nml No murmur no rub LE edema + 3 , scrotal edema improving ABD : non-distended, soft, non-tender, no mass, no palpable organomegaly, BS normal. Neuro : CN 3-12 grossly intact, MSK : joint deformity DATA Date 01/14/19699 - 01/15/1965801/15/19699 - 01/16/19 0659 Shift 6829-5468 6036-4707 1360-1519 24 Hour Total [id number] 3440-0904 5953-8173 24 Hour Total I N T A K E P.O. 720 240 960 240 240 P.O. 720 240 960 240 240 I.V. 16 16 I.V. 16 16 Shift Total 720 256 976 240 240 O U T P U T Urine 875 0 350 1225 200 200 Urine 875 0 350 1225 200 200 Urine Occurrence 1 x 0 x 1 x Emesis/NG output 0 0 0 Emesis 0 0 0 Emesis Occurrence 0 x 0 x 0 x Stool 0 0 0 Stool Occurrence 0 x 0 x 0 x Stool 0 0 0 Shift Total 875 0 350 1225 200 200 Weight (kg) Recent Labs 01/13/19 0601/14/19 0731 01/15/19 0647 WBC 2.9* 3.0* 3.3* HGB 9.3* 9.1* 9.5* HCT 27.9* 27.3* 29.0* PLT 193 183 173 Recent Labs 01/13/19 0601/14/19 0731 01/15/19 0647 NA 141 140 140 K 5.1 5.2 4.9 CL 109 108 105 CO2 24 25 26 BUN 30* 32* 38* CREATININE 3.22* 3.45* 3.61* GLUCOSE 147* 134* 92 Lab Results Component Value Date CREATININE 3.61 (H) 01/15/2019 BUN 38 (H) 01/15/2019 NA 140 01/15/2019 K 4.9 01/15/2019 CL 105 01/15/2019 CO2 26 01/15/2019 Lab Results Component Value Date PTH 164.0 (H) 01/14/2019 CALCIUM 8.0 (L) 01/15/2019 PHOS 5.3 (H) 01/15/2019 Lab Results Component Value Date [id number] 15.8 (L) 01/14/2019 Lab Results Component Value Date WBC 3.3 (L) 01/15/2019 HGB 9.5 (L) 01/15/2019 HCT 29.0 (L) 01/15/2019 MCV 86.0 01/15/2019 PLT 173 01/15/2019 Lab Results Component Value Date IRON 61 01/15/2019 TIBC 273 01/15/2019 FERRITIN 56.3 01/15/2019 Lab Results Component Value Date KETONESU Negative 01/12/2019 BLOODU Moderate (A) 01/12/2019 BILIRUBINUR Negative 01/12/2019 UROBILINOGEN 0.2 E.U./dL 01/12/2019 PROTEINUA >=300 mg/dL (A) 01/12/2019 NITRITE Negative 01/12/2019 LEUKOCYTESUR Negative 01/12/2019 PHUR 6.0 01/12/2019 LABSPEC 1.025 01/12/2019 CLARITYU Clear 01/12/2019 COLORU Yellow 01/12/2019 SUMMARY: Aiden Stauffer is a 43 y.o.male with PUD, DM, HTN , OTL 09/2017 with HBV ALEXANDRA + , HCV AB + , ALEXANDRA - , CKD proteinuric admitted For worsening LE edema ASSESSMENT: Acute Kidney Injury on CKD VS progression of CKD Unable to access care everywhere via EPIC Unknown etiology of proteinuric CKD as not biopsy is done . DN, CNI toxicity, FSGS, MN, MGRS, IgA are on differential list. Pt has HBV ALEXANDRA positive liver , but recent HBV ALEXANDRA is negative FK levels was not high The kidneys demonstrate normal size and echogenicity. There is no hydronephrosis. The right kidney measures 9.3 x 5.4 x 6.5 cm in size. The left kidney measures 12.2 x 5.6 x 4.9 cm in size Nephrotic syndrome : UPC > 10 g/g of unknown etiology 24 collection 13 g Anemia of CKD Ref Range & Units 01/15/19 ??6:47 AM Iron 50 - 212 ug/dL 61 % Iron Saturation 15.0 - 55.0 % 22.3 TIBC 261 - 462 ug/dL 273 Ferritin 56 No hemolysis HTN/ JC Coreg 50 mg BID Procardia 90 mg BID , terazosin 10 mg BID , clonidine 0.1 mg BID Hearing loss : as per pt who was seen by ENT hearing loss is associated with fluid collection and needs drainage. CKD MBD : Vit D 15 , PTH 164 PLAN: Continue volume optimization with lasix 60 mg BID , weigh daily , low Na diet CPAP at night added Clonidine 0.1 mg BID . Needs optimization of HTN prior to potential renal biopsy gaol 120 -130 renal doppler to evaluate for RAYNE pending HIV, syphilis negative , HBV ALEXANDRA negative , HVC ALEXANDRA negative Complements WNL, ANCA negative , TERESA 1:160 Cryo in process , FLC in process PLA2r Ab are pending as a part of nephrotic syndrome . As per Lab paste up copy camera operator will be ready in ~ 8-10 days I reduced gabapentin to 200 TID given low GFR Can give Fe IV Venofer 300 mg X 3 Give drisdol 50,000 units weekly for 8 weeks Get new ECHO : has JC and pulmonary hypertension 42 in 2018 Case to be discussed w/ the staff Shelley Martinez 01/15/2019 Cosigned by Ameya Arroyo MD at 01/16/2019 2:30 PM EDT Associated attestation - Ameya Arroyo MD - 01/16/2019 2:30 PM EDT I saw and examined the patient on 01/15/19, and discussed the case with the fellow. I agree with the assessment and plan as outlined in the fellow's note. Hypoxia/know hx of sleep apnea- patient reports being on CPAP at home. Will need kidney biopsy once BP in control (<150/90) * Shelley Martinez MD - 01/14/2019 11:42 AM EDT Renal Consult Initial Evaluation Note HPI 43yo s/p OLT Sep 2017 with high risk donor HBV ALEXANDRA +, HCV Ab+, ALEXANDRA neg 2/2 KIM on entecavir, Envarsus 2mg, Cellcept 750mg BID, DM , HTN , hearing loss presenting with increasing edema and noted to have Cr 3.4 associateed with nephrotic nazia proteinuria. Pt was recently treated for PNA with cephalexin and amox 7 days ago. He has baseline CKD with Scr 2.4 -1.94 in August -October 2018. Reports that he has had proteinuria for a while and under bread wrapper care. Heavy proteinuria developed in April 2018 but was not quantified. NO biopsy was done. He deniedexposure to NSAIDS, or herbals or OTC meds History Past Medical History: Diagnosis Date ??? [...] of Onset ??? Diabetes Sister Social History Substance Use Topics ??? Smoking status: Never Smoker ??? Smokeless tobacco: Never Used ??? Alcohol use No HPI ROS General : No fevers chills sweats, anorexia, ENT : No ear pain, hearing loss sinus pain CV : No chest pain, palpitations, ++ SOB, SOBOE + + +++ ankle swelling RS : No cough, wheeze, sputum, haemoptysis. GIT : No N, V, abdominal pain, C, D, GUT : No dysuria, frequency, urgency, heamaturia, flank pain. MSK : No muscular pain, cramps, weakness, Neuro : No faints, falls, fits, MACK, Skin : No rash, itch, Haem : No lumps, bruising, bleeding, Psych : No anxiety, depressed mood, memory loss. Allergies Allergen Reactions ??? Codeine Sulfate Hyper ??? Codeine Other (See Comments) Becomes hyper MEDS No current facility-administered medications on file prior to encounter. Current Outpatient Prescriptions on File Prior to Encounter Medication Sig Dispense Refill ??? aspirin 81 MG chewable tablet Chew 1 tablet (81 mg total) by mouth daily with breakfast. 30 tablet 5 ??? blood sugar diagnostic Strp Use to test blood sugar up to 4 times a day. Diagnosis for use: E 9.65. For use with One Touch Verio meters. 150 strip 5 ??? blood-glucose meter ([employer] VERIO SYSTEM) [facility] [place]. 1 each 0 ??? carBAMazepine (TEGRETOL) 200 mg tablet Take 200 mg by mouth at bedtime. ??? carvedilol (COREG) 25 MG tablet Take 2 tablets (50 mg total) by mouth 2 times a day with meals.120 tablet 5 ??? cloNIDine HCl (CATAPRES) 0.1 MG tablet Take 0.1 mg by mouth if needed. ??? doxazosin (CARDURA) 8 MG tablet 8 mg 2 times a day. ??? famotidine (PEPCID) 20 MG tablet Take 20 mg by mouth daily. ??? insulin glulisine U-100 (APIDRA U-100 INSULIN) 100 unit/mL injection Inject 2-4 Units subcutaneously 3 times a day with meals. ??? insulin NPH isoph U-100 human (HUMULIN N NPH INSULIN KWIKPEN) 100 unit/mL (3 mL) InPn Inject subcutaneously 50 units in the AM and 17 units in the PM. (Patient taking differently: Inject subcutaneously 48 units in the AM and 15 units in the PM. ) 15 mL 5 ??? lancets ([employer] DELAloqa LANCETS) 33 gauge [facility] [place] 1 strip as directed 4 times [...] Use as instructed. 150 each 5 ??? sucralfate (CARAFATE) 1 gram tablet Take 1 g by mouth 3 times a day. ??? tacrolimus (ENVARSUS XR) 1 mg Tb24 Take 2 mg by mouth daily. 60 tablet 5 ??? entecavir (BARACLUDE) 0.5 MG tablet Take 1 tablet (0.5 mg total) by mouth every other day. 15 tablet 11 ??? ergocalciferol (VITAMIN D2) 50,000 unit capsule Take 50,000 Units by mouth once a week. ??? gabapentin (NEURONTIN) 600 MG tablet Take 800 mg by mouth 3 times a day. Taking 800mg in the AM, 1200mg at 6pm, and then 800mg at 9pm Scheduled Meds: ??? carBAMazepine 200 mg Oral Nightly (2100) ??? carvedilol 50 mg Oral BID WC ??? entecavir 0.5 mg Oral Every Other Day ??? famotidine 20 mg Oral Daily 0900 ??? furosemide (LASIX) injection 60 mg Intravenous BID (0900, 1700) ??? gabapentin 300 mg Oral TID ??? heparin (porcine) 5,000 Units Subcutaneous 3 times per day ??? insulin lispro 0-8 Units Subcutaneous TID AC ??? insulin lispro 5 Units Subcutaneous TID AC ??? insulin NPH 15 Units Subcutaneous BID ??? mycophenolate 750 mg Oral BID ??? NIFEdipine 90 mg Oral BID ??? polyethylene glycol 17 g Oral Daily 0900 ??? terazosin 10 mg Oral BID Continuous Infusions: PRN Meds:.calcium carbonate, dextrose 10% in water OR dextrose 10% in water, glucose, lidocaine-prilocaine, oxyCODONE OR oxyCODONE, proMETHazine VITALS Temp: [97.8 ??F (36.6 ??C)-98.4 ??F (36.9 ??C)] 97.8 ??F (36.6 ??C) Heart Rate: [52-81] 81 Resp: [17-20] 20 BP: (149-192)/(64-102) 179/70 Wt Readings from Last 3 Encounters: 12/13/18 (!) 286 lb (129.7 kg) 09/13/18 (!) 291 lb 12.8 oz (132.4 kg) 06/05/18 (!) 281 lb 9.6 oz (127.7 kg) I/O this shift: In: 480 [P.O.:480] Out: 500 [Urine:500] Intake/Output Summary (Last 24 hours) at 01/14/19 1141 Last data filed at 01/14/19 1049 Gross per 24 hour Intake 480 ml Output 1500 ml Net -1020 ml PHYSICAL EXAM Constitutional : Awake, alert, no acute distress Skin : No rash, lesions, warm to touch Head : atraumatic, Pupils equal, EOM intact grossly, No nystagmus. ENT : external ears, nose & tongue normal, Neck : No LAD , Masses RESP : No respiratory distress, wheezes scattered present CV : HR regular, HS S1 S2 nml No murmur no rub LE edema + 3 , scrotal edema ABD : non-distended, soft, non-tender, no mass, no palpable organomegaly, BS normal. Neuro : CN 3-12 grossly intact, MSK : joint deformity DATA Date 01/13/19699 - 01/14/1965801/14/19 07 - 01/15/19 0659 Shift [id number] 7568-8924 3018-3243 24 Hour Total 0216-5666 6582-9686 6423-2152 24 Hour Total I N T A K E P.O. 480 480 P.O. 480 480 Shift Total 480 480 O U T P U T Urine 1000 1000 500 500 Urine 1000 1000 500 500 Shift Total 1000 1000 500 500 Weight (kg) Recent Labs 01/11/19213001/13/19 0610 01/14/19 0731 WBC 3.9 2.9* 3.0* HGB 10.0* 9.3* 9.1* HCT 29.4* 27.9* 27.3* PLT 218 193 183 Recent Labs 01/11/19213001/13/19 0610 01/14/19 0731 NA 140 141 140 K 5.3 5.1 5.2 CL 109 109 108 CO2 25 24 25 BUN 31* 30* 32* CREATININE 3.17* 3.22* 3.45* GLUCOSE 153* 147* 134* Lab Results Component Value Date CREATININE 3.45 (H) 01/14/2019 BUN 32 (H) 01/14/2019 NA 140 01/14/2019 K 5.2 01/14/2019 CL 108 01/14/2019 CO2 25 01/14/2019 Lab Results Component Value Date CALCIUM 7.6 (L) 01/14/2019 PHOS 4.5 01/13/2019 Lab Results Component Value Date [id number] 38.3 01/02/2018 Lab Results Component Value Date WBC 3.0 (L) 01/14/2019 HGB 9.1 (L) 01/14/2019 HCT 27.3 (L) 01/14/2019 MCV 85.5 01/14/2019 PLT 183 01/14/2019 Lab Results Component Value Date IRON 127 08/21/2017 TIBC 226 (L) 08/21/2017 FERRITIN 153.3 08/21/2017 Lab Results Component Value Date KETONESU Negative 01/12/2019 BLOODU Moderate (A) 01/12/2019 BILIRUBINUR Negative 01/12/2019 UROBILINOGEN 0.2 E.U./dL 01/12/2019 PROTEINUA >=300 mg/dL (A) 01/12/2019 NITRITE Negative 01/12/2019 LEUKOCYTESUR Negative 01/12/2019 PHUR 6.0 01/12/2019 LABSPEC 1.025 01/12/2019 CLARITYU Clear 01/12/2019 COLORU Yellow 01/12/2019 SUMMARY: Aiden Stauffer is a 43 y.o.male with PUD, DM, HTN , OTL 09/2017 with HBV ALEXANDRA + , HCV AB + , ALEXANDRA - , CKD proteinuric admitted For worsening LE edema ASSESSMENT: Acute Kidney Injury on CKD VS progression of CKD Unable to access care everywhere via EPIC Unknown etiology of proteinuric CKD as not biopsy is done . DN, CNI toxicity, FSGS, MN, MGRS, IgA are on differential list. Pt has HBV ALEXANDRA positive liver , but recent HBV ALEXANDRA is negative FK levels was not high Nephrotic syndrome : UPC > 10 g/g of unknown etiology Anemia of CKD HTN; Coreg 50 mg BID Procardia 90 mg BID , terazosin 10 mg BID Hearing loss : as per pt who was seen by ENT hearing loss is associated with fluid collection and needs drainage. CKD MBD : will check PTH, vit D PLAN: Continue volume optimization with lasix 60 mg BID Can add Clonidine 0.1 mg BID . Needs optimization of HTN prior to potential renal biopsy gaol 120 -130 Renal US is pending reading. Please add renal doppler to evaluate for RAYNE HIV, syphilis negative , HBV ALEXANDRA negative , HVC ALEXANDRA negative Complements WNL Needs EBV , CMV PCR serum GBM AB, EBV PCR CMV PCR , SPEP , FLC , ANCA , cryo , 24 urine collection for UPEPE, urine protein, PLA2r Ab are pending as a part of nephrotic syndrome I added to the blood work BK, parvo 19 PCR. DS DNA AB , hemolysis profile PTH and vit D, iron studies , ferritin Reduce dose of gabapentin to max 700 mg a day given current GFR Case to be discussed w/ the staff Shelley Martinez 01/14/2019 Cosigned by Ameya Arroyo MD at 01/15/2019 2:17 PM EDT Associated attestation - Ameya Arroyo MD - 01/15/2019 2:17 PM EDT I saw and examined the patient on 01/14/19, and discussed the case with the fellow. I agree with the assessment and plan as outlined in the fellow's note. 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 Pt was recently treated for PNA with cephalexin and amox 7 days ago. He has baseline CKD with Scr 2.4 -1.94 in August -October 2018. Reports that he has had proteinuria for a while and under bread wrapper care. Heavy proteinuria developed in April 2018 but was not quantified. NO biopsy was done. He deniedexposure to NSAIDS, or herbals or OTC meds History Past Medical History: Diagnosis Date ??? [...] of Onset ??? Diabetes Sister Social History Substance Use Topics ??? Smoking status: Never Smoker ??? Smokeless tobacco: Never Used ??? Alcohol use No HPI ROS General : No fevers chills sweats, anorexia, ENT : No ear pain, hearing loss sinus pain CV : No chest pain, palpitations, ++ SOB, SOBOE + + +++ ankle swelling RS : No cough, wheeze, sputum, haemoptysis. GIT : No N, V, abdominal pain, C, D, GUT : No dysuria, frequency, urgency, heamaturia, flank pain. MSK : No muscular pain, cramps, weakness, Neuro : No faints, falls, fits, MACK, Skin : No rash, itch, Haem : No lumps, bruising, bleeding, Psych : No anxiety, depressed mood, memory loss. Allergies Allergen Reactions ??? Codeine Sulfate Hyper ??? Codeine Other (See Comments) Becomes hyper MEDS No current facility-administered medications on file prior to encounter. Current Outpatient Prescriptions on File Prior to Encounter Medication Sig Dispense Refill ??? aspirin 81 MG chewable tablet Chew 1 tablet (81 mg total) by mouth daily with breakfast. 30 tablet 5 ??? blood sugar diagnostic Strp Use to test blood sugar up to 4 times a day. Diagnosis for use: E 9.65. For use with One Touch Verio meters. 150 strip 5 ??? blood-glucose meter ([employer] VERIO SYSTEM[place] [facility] [place]. 1 each 0 ??? carBAMazepine (TEGRETOL) 200 mg tablet Take 200 mg by mouth at bedtime. ??? carvedilol (COREG) 25 MG tablet Take 2 tablets (50 mg total) by mouth 2 times a day with meals.120 tablet 5 ??? cloNIDine HCl (CATAPRES) 0.1 MG tablet Take 0.1 mg by mouth if needed. ??? doxazosin (CARDURA) 8 MG tablet 8 mg 2 times a day. ??? famotidine (PEPCID) 20 MG tablet Take 20 mg by mouth daily. ??? insulin glulisine U-100 (APIDRA U-100 INSULIN) 100 unit/mL injection Inject 2-4 Units subcutaneously 3 times a day with meals. ??? insulin NPH isoph U-100 human (HUMULIN N NPH INSULIN KWIKPEN) 100 unit/mL (3 mL) InPn Inject subcutaneously 50 units in the AM and 17 units in the PM. (Patient taking differently: Inject subcutaneously 48 units in the AM and 15 units in the PM. ) 15 mL 5 ??? lancets (CrowdGatherTOUCH DELICA LANCETS) 33 gauge [facility] [place] 1 strip as directed 4 times [...] Use as instructed. 150 each 5 ??? sucralfate (CARAFATE) 1 gram tablet Take 1 g by mouth 3 times a day. ??? tacrolimus (ENVARSUS XR) 1 mg Tb24 Take 2 mg by mouth daily. 60 tablet 5 ??? entecavir (BARACLUDE) 0.5 MG tablet Take 1 tablet (0.5 mg total) by mouth every other day. 15 tablet 11 ??? ergocalciferol (VITAMIN D2) 50,000 unit capsule Take 50,000 Units by mouth once a week. ??? gabapentin (NEURONTIN) 600 MG tablet Take 800 mg by mouth 3 times a day. Taking 800mg in the AM, 1200mg at 6pm, and then 800mg at 9pm Scheduled Meds: ??? carBAMazepine 200 mg Oral Nightly (2100) ??? carvedilol 50 mg Oral BID WC ??? [START ON 01/13/2019] entecavir 0.5 mg Oral Every Other Day ??? famotidine 20 mg Oral Daily 0900 ??? gabapentin 300 mg Oral TID ??? heparin (porcine) 5,000 Units Subcutaneous 3 times per day ??? insulin lispro 0-8 Units Subcutaneous TID AC ??? insulin NPH 15 Units Subcutaneous BID ??? mycophenolate 750 mg Oral BID ??? NIFEdipine 90 mg Oral BID ??? terazosin 10 mg Oral BID Continuous Infusions: PRN Meds:.dextrose 10% in water OR dextrose 10% in water, glucose, ondansetron, oxyCODONE OR oxyCODONE VITALS Temp: [97.8 ??F (36.6 ??C)-98.7 ??F (37.1 ??C)] 97.8 ??F (36.6 ??C) Heart Rate: [73-88] 75 Resp: [16-18] 16 BP: (141-179)/(76-114) 141/76 Wt Readings from Last 3 Encounters: 12/13/18 (!) 286 lb (129.7 kg) 09/13/18 (!) 291 lb 12.8 oz (132.4 kg) 10/23/18 (!) 281 lb 9.6 oz (127.7 kg) I/O this shift: In: 480 [P.O.:480] Out: 600 [Urine:600] Intake/Output Summary (Last 24 hours) at 01/12/19 1752 Last data filed at 01/12/19 1413 Gross per 24 hour Intake 480 ml Output 600 ml Net -120 ml PHYSICAL EXAM Constitutional : Awake, alert, no acute distress Skin : No rash, lesions, warm to touch Head : atraumatic, Pupils equal, EOM intact grossly, No nystagmus. ENT : external ears, nose & tongue normal, Neck : No LAD , Masses RESP : No respiratory distress, wheezes scattered present CV : HR regular, HS S1 S2 nml No murmur no rub LE edema + 3 , scrotal edema ABD : non-distended, soft, non-tender, no mass, no palpable organomegaly, BS normal. Neuro : CN 3-12 grossly intact, MSK : joint deformity DATA Date 01/11/19 1500 - 01/12/19 0659(Not Admitted) 01/12/19 0700 - 01/13/19 0659 Shift [id number] 1115-5787 24 Hour Total 1454-9755 9440-3739 7098-1337 24 Hour Total I N T A K E P.O. 480 480 P.O. 480 480 Shift Total 480 480 O U T P U T Urine 600 600 Urine 600 600 Shift Total 600 600 Weight (kg) Recent Labs 01/11/19 2131 WBC 3.9 HGB 10.0* HCT 29.4* PLT 218 Recent Labs 01/11/19 2131 NA 140 K 5.3 CL 109 CO2 25 BUN 31* CREATININE 3.17* GLUCOSE 153* Lab Results Component Value Date CREATININE 3.17 (H) 01/11/2019 BUN 31 (H) 01/11/2019 NA 140 01/11/2019 K 5.3 01/11/2019 CL 109 01/11/2019 CO2 25 01/11/2019 Lab Results Component Value Date CALCIUM 7.9 (L) 01/11/2019 PHOS 3.4 12/13/2018 Lab Results Component Value Date TBRI12W 38.3 01/02/2018 Lab Results Component Value Date WBC 3.9 01/11/2019 HGB 10.0 (L) 01/11/2019 HCT 29.4 (L) 01/11/2019 MCV 86.0 01/11/2019 PLT 218 01/11/2019 Lab Results Component Value Date IRON 127 08/21/2017 TIBC 226 (L) 08/21/2017 FERRITIN 153.3 08/21/2017 Lab Results Component Value Date KETONESU Negative 01/12/2019 BLOODU Moderate (A) 01/12/2019 BILIRUBINUR Negative 01/12/2019 UROBILINOGEN 0.2 E.U./dL 01/12/2019 PROTEINUA >=300 mg/dL (A) 01/12/2019 NITRITE Negative 01/12/2019 LEUKOCYTESUR Negative 01/12/2019 PHUR 6.0 01/12/2019 LABSPEC 1.025 01/12/2019 CLARITYU Clear 01/12/2019 COLORU Yellow 01/12/2019 SUMMARY: Aiden Stauffer is a 43 y.o.male with PUD, DM, HTN , OTL 09/2017 with HBV ALEXANDRA + , HCV AB + , ALEXANDRA - , CKD proteinuric admitted For worsening LE edema ASSESSMENT: Acute Kidney Injury on CKD VS progression of CKD Unable to access care everywhere via EPIC Unknown etiology of proteinuric CKD as not biopsy is done . DN, CNI toxicity, FSGS, MN, MGRS, IgA are on differential list. Pt has HBV ALEXANDRA positive liver , but recent HBV ALEXANDRA is negative FK levels was not high Nephrotic syndrome : UPC > 10 g/g of unknown etiology Anemia of CKD HTN; Clonidine Coreg 50 mg BID Procardia 90 mg BID , terazosin 10 mg BID Hearing loss : as per pt who was seen by ENT hearing loss is associated with fluid collection and needs drainage. PLAN: Will run tests to elucidate the etiology of nephrotic syndrome: SPEP, 24 urine collection for protein and UPEP, serum FLC . Urine albumin to creatinine ratio HIV, syphilis tests. Cryo , complement C 3, C4, TERESA, ds DNA Ab , RF , ANCA , antiGBM Ab. Please send out phospholipase A 2 receptor antibodies by STEF. Will discuss the necessity of the kidney biopsy with the patient. Can give lasix IV 60 mg BID to optimize volume status and respiratory status( wheezes and SOB on exertion) Needs renal US Needs EBV , CMV PCR serum Case to be discussed w/ the staff Shelley Martinez 01/12/2019 Cosigned by Ameya Arroyo MD at 01/13/2019 1:00 PM EDT Associated attestation - Ameya Arroyo MD - 01/13/2019 1:00 PM EDT I saw and examined the patient on 01/13/19, and discussed the case with the fellow. I agree with the assessment and plan as outlined in the fellow's note. 43 yo WM with CKD stage ? IIIb with nephrotic syndrome and edema. Suspect progressive ckd with worsening proteinuria post liver transplant. Differential is broad -other than DN, proteinuria of this degree is more likely from a another glomerular process such Membranous nephropathy either denovo or s econdary, FSGS, IgAN (less likely presents with NS), paraproteinemia or just advancing CKD with FGGS. Follow up labs for evaluation of NS as below and hold plan for biopsy until then Obtain kidney USG to assess for size and echogenicity. Needs better BP control - target 120-130/70-80. Add diuretic lasix 40-60 mg IV bid. Low salt diet. Check serum BK quant, EBV quant, parvovirus quant and CMV quant as well. Anemia work up. Intact PTH level, Vitamin D and phos level. Start statin or some other medication for hypertriglyceridemia- defer to primary team. DVT prophylaxis. Obtain records from primary bread wrapper tomorrow. * Felicitas Koch MD - 01/12/2019 12:32 PM EDTAssociated Order(s): IP CONSULT TO LIVER [facility] [place] [facility] CONS[facility] NOTE Name: Aiden Stauffer CSN: [id number] Consulted by: Lonnie Virgen, * Chief Complaint: History of OLT w/ YNADY History of Present Illness: Aiden Stauffer is a 43 y.o. With history of OLT (10/01) 2/2 KIM cirrhosis follows with us. His transplant history is notable for recieving a [facility] high risk donor, who was HBV ALEXANDRA +, HCV Ab+, ALEXANDRA negative-- on entecavir. Post operatively he received one dose of thymoglobulin . Liver tests are normal onEnvarsus 2 mg daily (switched due to neurologic toxicity from tacrolimus, also switch off cyclo dueto renal insufficiency) and cellcept 750 mg twice daily. Side effects improved from Envarsus. He presents with weakness and BLE edema-- was seen at [facility] and noted to have a creatinine of 3.4. Transplant notified and made OP renal appointment however patient presented due to not being able to wait. He's gained about 15 lbs of weight for last few months-- edema worsened acutely in last few days now involving his scrotum. He's had cough for 3-4 weeks with ear fullness making it difficult to hear out of his left ear. Was given cephalexin + amoxacillin for a pneumonia a week ago. Got some ibuprofen. His UA was notable for Protein >300 with glucose of 100 and moderate amount of blood. Urine sodium: 82 and urine protein >1000. Complement levels noted to be normal at 133/39. Review of Systems Noted above. Review of Systems - General ROS: negative for - chills, fever, malaise, night sweats, sleep disturbance, weight gain or weight loss Psychological ROS: negative for - anxiety, concentration difficulties, depression, memory difficulties or suicidal ideation Ophthalmic ROS: negative for - blurry vision, decreased vision, double vision or loss of vision ENT ROS: negative for - epistaxis, headaches, hearing change, sore throat or vertigo Allergy and Immunology ROS: negative for - hives, nasal congestion or seasonal allergies Hematological and Lymphatic ROS: negative for - bleeding problems, blood clots or swollen lymph nodes Endocrine ROS: negative for - polydipsia/polyuria or temperature intolerance Respiratory ROS: negative for - cough, hemoptysis, orthopnea, pleuritic pain, shortness of breath or wheezing Cardiovascular ROS: negative for - chest pain, dyspnea on exertion or palpitations Gastrointestinal ROS: negative for - hematemesis, nausea/vomiting, altered bowel habits or swallowing difficulty/pain. Genito-Urinary ROS: no dysuria, trouble voiding, or hematuria Musculoskeletal ROS: negative for - joint pain or muscular weakness Neurological ROS: negative for - dizziness, gait disturbance, seizures or tremors Dermatological ROS: negative for nail changes, pruritus and rash Past Medical History: Diagnosis Date ??? [...] of Onset ??? Diabetes Sister Social History Substance Use Topics ??? Smoking status: Never Smoker ??? Smokeless tobacco: Never Used ??? Alcohol use No Allergies Allergen Reactions ??? Codeine Other (See Comments) Becomes hyper Scheduled Meds: ??? carBAMazepine 200 mg Oral Nightly (2100) ??? carvedilol 50 mg Oral BID WC ??? [START ON 01/13/2019] entecavir 0.5 mg Oral Every Other Day ??? famotidine 20 mg Oral Daily 0900 ??? gabapentin 300 mg Oral TID ??? heparin (porcine) 5,000 Units Subcutaneous 3 times per day ??? insulin lispro 0-8 Units Subcutaneous TID AC ??? insulin NPH 15 Units Subcutaneous BID ??? mycophenolate 750 mg Oral BID ??? NIFEdipine 90 mg Oral BID ??? terazosin 10 mg Oral BID Continuous Infusions: PRN Meds: dextrose 10% in water OR dextrose 10% in water, glucose, ondansetron, oxyCODONE OR oxyCODONE Prior to Admission Meds: (Not in a hospital admission) Vitals: Temp: [97.8 ??F (36.6 ??C)-98.7 ??F (37.1 ??C)] 97.8 ??F (36.6 ??C) Heart Rate: [73-88] 73 Resp: [16-18] 16 BP: (155-179)/(85-114) 156/92 Intake/Output Summary (Last 24 hours) at 01/12/19 1232 Last data filed at 01/12/19 0931 Gross per 24 hour Intake 0 ml Output 600 ml Net -600 ml Physical Exam Gen: Well-developed, well nourished. No acute distress. HEENT: Nares patent. Mucous membranes pink/moist. No scleral icterus. Neck: Neck is supple. No JVD present. No tracheal deviation. No thyromegaly or cervical lymphadenopathy. CV: Regular rate and rhythm. Normal S1 and S2. No murmurs/rubs/gallops. Lungs: Clear to auscultation bilaterally. No wheezes/rales/rhonchi. No respiratory distress. Abdomen: Soft, nontender, nondistended, no hepatosplenomegaly or palpable masses. Bowel sounds present. No ascites present. No rebound or guarding present. Well healed surgical scar present. Extremities: +pitting edema. No clubbing or cyanosis present. Skin: No bruising or rash noted. No spider angiomata or palmar erythema. Neuro: Alert and oriented to person, place, and time. CN 2-12 grossly intact. No gross motor defecits. No asterixis Psych: Normal mood and affect. Normal speech and behavior. Laboratory: Lab Results Component Value Date WBC 3.9 01/11/2019 HGB 10.0 (L) 01/11/2019 HCT 29.4 (L) 01/11/2019 MCV 86.0 01/11/2019 PLT 218 01/11/2019 Lab Results Component Value Date NA 140 01/11/2019 K 5.3 01/11/2019 CL 109 01/11/2019 CO2 25 01/11/2019 BUN 31 (H) 01/11/2019 CREATININE 3.17 (H) 01/11/2019 GLUCOSE 153 (H) 01/11/2019 CALCIUM 7.9 (L) 01/11/2019 PHOS 3.4 12/13/2018 Lab Results Component Value Date AST 13 01/11/2019 ALT 11 01/11/2019 BILITOT 0.2 01/11/2019 BILIDIRECT 0.0 01/11/2019 PROT 5.7 (L) 01/11/2019 ALBUMIN 3.1 (L) 01/11/2019 ALKPHOS 139 (H) 01/11/2019 Lab Results Component Value Date INR 1.1 06/05/2018 Lab Results Component Value Date LIPASE 139 (H) 04/26/2018 Lab Results Component Value Date HEPAIGM Nonreactive 08/21/2017 HEPBCAB Nonreactive 12/13/2018 Lab Results Component Value Date IRON 127 08/21/2017 TIBC 226 (L) 08/21/2017 FERRITIN 153.3 08/21/2017 Lab Results Component Value Date [id number] 690 12/20/2017 Microbiology: Lab Results Component Value Date LABGRAM 10/25/2017 Minimal Oral Contamination <25 Polymorphonuclear Leukocytes; <10 Squamous Epithelial Cells Per Low Power Field LABGRAM Moderate Gram Positive Cocci in Chains and Pairs; 10/25/2017 ISO2 Scant Growth (A) 10/25/2017 ISO2 Pseudomonas fluorescens (A) 10/25/2017 ISO2 Identified by MALDI-TOF MS (A) 10/25/2017 ISO2 Testing Performed at Laboratory (A) 10/25/2017 Images: Renal US: Peding Liver US w/ Doppler: Pending. Assessment/Plan: 43 year old male with history of OLT (10/01) 2/2 KIM cirrhosis follows with us. His transplant history is notable for recieving a [facility] high risk donor, who was HBV ALEXANDRA +, HCV Ab+, ALEXANDRA negative-- on entecavir. He's now presenting with progressively worsening renal dysfunction with notable proteinuriaand blood present in previous UA 04/26/18, also notable is creatinine is now 3.17 (intrinsic likely given that urine sodium was >10) with baseline of around 2. Unclear what cause of his worsened renal dysfunction is, may be due to tacrolimus. At this time his synthetic function appears to be intact for his liver. -Hold tacroimus for now given yandy. Please check tacro level. -Okay to continue cellcept 750mg BID. -Appreciate renal recs for YANDY. -Liver US w/ doppler pending. -Continue Entecavir .5mg -- change to every 72 hours given worsened renal dysfunction. Pharmacy consult for dosing in setting of YANDY (for HBcAb+ liver). -We will continue to follow this patient, thank you. Felicitas [facility] PGY5 Division of Gastroenterology Cosigned by Kelsey Carcamo MD at 01/12/2019 2:31 PM EDT Associated attestation - Kelsey Carcamo MD - 01/12/2019 2:31 PM EDT Chart reviewed and pt seen with fellow. Agree with history, PE, A/P. 43yo s/p OLT with high risk donor HBV ALEXANDRA +, HCV Ab+, ALEXANDRA neg 2/2 KIM on entecavir, Envarsus 2mg, Cellcept 750mg BID presenting with increasing edema and noted to have Cr 3.4. Urine is strongly positive for protein. Pt was recently treated for PNA with cephalexin and amox. Renal to see pt regarding worsening of the kidney function. Cause of this is not immediately obvious. Pt did take some NSAID though admits only to several doses. Liver: Cont Cellcept. Hold tacro and check level Cont entecavir at reduced dose given renal function. Liver USN with Doppler documented in this encounter Nursing Notes * Stan Barnes RN - 01/17/2019 6:22 PM EDT Pt discharged per order. Iv removed and discharge paperwork signed and understood. Pt walked out onhis own power and was picked up by his family. * Erika Stovall RN - 01/11/2019 9:19 PM EDT Pt to ED with SOB and swelling; Pt with liver transplant 10/08/17. Pt liver dr told him to come in because kidney numbers are up and needs to be checked out. Pt states that he has pain and swelling from feet up to testicles. documented in this encounter ED Notes * Denae Krishnamurthy RN - 01/14/2019 8:34 AM EDT Resident assessed to be laying in bed; alert and oriented with easy respirations; patient indicatesbreathing is improving; lungs auscultated with right side noted to be slightly diminished and left lung clear; states cough is improving with scant amount of light yellow mucus. Noted with bilateral lower extremity edema at +2; edema through thighs, torso and scrotum with patient stating tendernessr/t swelling; states edema is improving. Patients states no BM x 3 days; bowel sounds active in all4 quads. States appetite is good with breakfast meal ordered. Patient verbalizes understanding of continuing to save urine for 24 hour urine testing. Will monitor. * Denae Krishnamurthy RN - 01/14/2019 7:19 AM EDT Bedside report/hand off received from Sonja BATES. * Sonja Childers RN - 01/13/2019 7:43 PM EDT Patient requesting phenergan, states Zofran doesn't work for him. MD gambino. * Roxi Faith RN - 01/13/2019 7:51 AM EDT Pt resting comfortably, eyes closed. No s/s of distress noted. Bed locked, in lowest position. CLWR * Mia Coles RN - 01/12/2019 2:58 PM EDT Bed: [id number] Expected date: Expected time: Means of arrival: Comments: Hold CDU 4 to CDU 14 * Mia Coles RN - 01/12/2019 12:30 PM EDT Pt off the floor for ultrasound * Sally Irwin RN - 01/12/2019 12:22 PM EDT Bed: [facility] Expected date: Expected time: Means of arrival: Comments: B25- ready Mia [phone] * Mia Coles RN - 01/12/2019 12:20 PM EDT Pt transferred from ED to CDU 4 Pt awake alert and oriented. Pt able to ambulate from W/C to bed unassisted. Pt requesting to know plan of care. Team paged and advised that pt is waiting for nephrology to see pt later today. This info relayed to pt. Pt oriented to room and bathroom. Menu given. Pt has 20 gauge IV to R FA. Bed in lowest position, wheels locked, call light within reach. * Malou Etienne RN - 01/12/2019 10:22 AM EDT Admit team at bedside talking with pt. * Malou Etienne RN - 01/12/2019 10:10 AM EDT Pt transferred to hospital bed. Pt able to ambulate to hospital. Gait strong and steady. * Malou Etienne RN - 01/12/2019 9:36 AM EDT This RN paged Hospital team 6. This RN informed resident that pt ate meal before pre-meal FS could be obtained. Pt after meal finger stick is 152. Resident informed pt received NPH insulin per OCT. Hospital team 6 resident stated Hold his 1 unit this time around. This RN then requested pain meds for pt per pt request. Resident stated Let me come down and assess him. This RN verbalized understanding. Pt updated. * Chiquita Cobb RN - 01/12/2019 1:15 AM EDT Patient presents with swelling in his BLE and lower abdomen. Per patient the swelling started two days ago. He is s/p liver transplant from 09/2017. He is followed by transplant here and his transplant doctors told him to come in. He is also complaining of ear pain and scrotal pressure. * Skylar Coles - 01/11/2019 9:18 PM EDT Lab Collection Status: Patient labs collected per protocol Nurse notified documented in this encounter Miscellaneous Notes * Care Coordination - RADHA Langley LSW - 01/16/2019 10:26 AM EDT LEODAN rounded with Medicine Team 6 x [phone]. Patient will need a kidney biopsy when BP is under control. Not medically ready to dc. Inpatient possibly into next week. Patient reports he will not need any home health. Family will transport home.No dispo needs. Medicare. IMM was signed in admission on 01/12/19 6:18:26 AM. LEODAN rounded with SUMI Rdz who will follow up on IMM. SW to follow. JOVITA Langley [phone] * Care Coordination - Cristina Rdz - 01/16/2019 10:10 AM EDT SUMI was advised by Bry Rutherford to see if patient has Medicare, patient does have medicare insruace and IMM was signed in admission on 01/12/19 6:18:26 AM, per chart review patient will need a kidney biopsy when BP is under control. So, he is not medically ready to dc possibly in another week. No IMMis needed at this time, cca continue to follow. Cristina Rdz [employer] [facility] * Care Coordination - RADHA Beck LSW - 01/14/2019 10:32 AM EDT Sw rounded with MD(Meagan). Patient with history of transplant admitted with YANDY. Disposition unknown at this time. Mandi GARCIA FLOOR ASSEMBLER [phone] documented in this encounter Plan of Treatment Upcoming Encounters Date Type Department Care Team (Late st Contact Info) Description 07/15/2024 9:00 AM EST Hospital Encounter [facility] Interventional Radiology [address] [place] [address] Herve Carrillo MD [address] [facility] [address] [place] [id number] Scheduled Orders Name Type Priority Associated Diagnoses Orde r Schedule Sputum Culture plus Stain Microbiology Routine Once for 1 Occur rences starting 01/17/2019 until 01/17/2019 Scheduled Referrals Name Type Priority Associated Diagnoses Orde r Schedule Nephrology Outpatient Referral Routine Acute renal failure superimposed on stage 3 chronic kidney disease, unspecified acute renal failure type ([facility]) Ordered: 01/17/2019 documented as of this encounter Procedures Procedure Name Priority Date/Time Associated Diagnosis Comments CYTOMEGALOVIRUS DNA, QUANT, RT PCR Add-On 01/17/2019 1:16 PM EDT POC GLU MONITORING DEVICE Routine 01/17/2019 1:15 PM EDT POC GLU MONITORING DEVICE Routine 01/17/2019 8:12 AM EDT RENAL FUNCTION PANEL W/EGFR Routine 01/17/2019 5:32 AM EDT MAGNESIUM Routine 01/17/2019 5:32 AM EDT POC GLU MONITORING DEVICE Routine 01/16/2019 8:12 PM EDT POC GLU MONITORING DEVICE Routine 01/16/2019 6:58 PM EDT POC GLU MONITORING DEVICE Routine 01/16/2019 2:20 PM EDT POC GLU MONITORING DEVICE Routine 01/16/2019 9:28 AM EDT ECHO 2D COMPLETE W/CONTRAST (TTE) Routine 01/16/2019 8:44 AM EDT RENAL FUNCTION PANEL W/EGFR Routine 01/16/2019 4:27 AM EDT MAGNESIUM Routine 01/16/2019 4:27 AM EDT POC GLU MONITORING DEVICE Routine 01/15/2019 5:34 PM EDT POC GLU MONITORING DEVICE Routine 01/15/2019 3:17 PM EDT MISCELLANEOUS REFERENCE TEST Routine 01/15/2019 2:38 PM EDT POC GLU MONITORING DEVICE Routine 01/15/2019 8:31 AM EDT BK VIRUS QUANTITATIVE BY PCR, BLOOD Add-On 01/15/2019 6:47 AM EDT RENAL FUNCTION PANEL W/EGFR Routine 01/15/2019 6:47 AM EDT IRON STUDIES Routine 01/15/2019 6:47 AM EDT CBC Routine 01/15/2019 6:47 AM EDT MAGNESIUM Routine 01/15/2019 6:47 AM EDT FERRITIN Routine 01/15/2019 6:47 AM EDT PREPARE RBC, LEUKOREDUCED Routine 01/15/2019 12:07 AM EDT LAB 01/15/2019 12:00 AM EDT LAB 01/15/2019 12:00 AM EDT POC GLU MONITORING DEVICE Routine 01/14/2019 11:35 PM EDT BK VIRUS QUANTITATIVE BY PCR, URINE Routine 01/14/2019 10:23 PM EDT URINE CULTURE, SPECIAL POPULATION STAT 01/14/2019 10:23 PM EDT KAPPA/LAMBDA, FREE LIGHT CHAINS, 24 HR URINE Routine 01/14/2019 10:23 PM EDT CREATININE, URINE, 24 HOUR Routine 01/14/2019 10:23 PM EDT PROTEIN, URINE, 24 HOUR Routine 01/15/20 19 10:23 PM EDT UR PROTEIN ELECTROPHORESIS, RANDOM W/REFLEX TESTING Routine 01/14/2019 10:23 PM EDT POC GLU MONITORING DEVICE Routine 01/14/2019 7:22 PM EDT POC GLU MONITORING DEVICE Routine 01/14/2019 1:40 PM EDT CMV DNA QUAL, PCR Routine 01/14/2019 12: 58 PM EDT HISTONE ANTIBODY Routine 01/14/2019 12:5 8 PM EDT DOUBLE STRANDED DNA AB Routine 9 12:58 PM EDT PARVOVIRUS B19 ANTIBODY, IGG AND IGM Routine 01/14/2019 12:58 PM EDT VITAMIN D 25 HYDROXY Routine 01/14/2019 12:58 PM EDT PTH, INTACT Routine 01/14/2019 12:58 PM EDT LACTATE DEHYDROGENASE STAT 01/14/2019 12:58 PM EDT HAPTOGLOBIN Routine 01/14/2019 12:58 PM EDT POC GLU MONITORING DEVICE Routine 01/14/2019 8:24 AM EDT HEPATIC FUNCTION PANEL Routine 9 7:31 AM EDT TACROLIMUS LEVEL Routine 01/14/2019 7:31 AM EDT DIFFERENTIAL Routine 01/14/2019 7:31 AM EDT PROTIME-INR Routine 01/14/2019 7:31 AM EDT CBC Routine 01/14/2019 7:31 AM EDT BASIC METABOLIC PANEL Routine 01/14/2019 7:31 AM EDT POC GLU MONITORING DEVICE Routine 01/13/2019 10:10 PM EDT POC GLU MONITORING DEVICE Routine 01/13/2019 7:12 PM EDT POC GLU MONITORING DEVICE Routine 01/13/2019 1:55 PM EDT SYPHILIS MONITORING (RPR W TITER) Routine 01/13/2019 10:17 AM EDT MISCELLANEOUS REFERENCE TEST Routine 01/13/2019 10:17 AM EDT DESTINY LOPEZ VIRUS DNA,QUAL,REAL-TIME PCR BLOOD Routine 01/13/2019 10:17 AM EDT TACROLIMUS LEVEL Timed 01/13/2019 10:1 7 AM EDT GLOMERULAR BASEMENT MEMBRANE ANTIBODIES Routine 01/13/2019 10:17 AM EDT HIV 1+2 ANTIBODY/ANTIGEN WITH REFLEX Routine 01/13/2019 10:17 AM EDT BLOOD CULTURE-PERIPHERAL STAT 01/13/2019 10:17 AM EDT RHEUMATOID FACTOR Routine 01/13/2019 10: 17 AM EDT POC GLU MONITORING DEVICE Routine 01/13/2019 9:24 AM EDT ANCA PANEL Routine 01/13/2019 6:10 AM EDT RENAL FUNCTION PANEL W/EGFR Routine 01/13/2019 6:10 AM EDT CBC Routine 01/13/2019 6:10 AM EDT LAB 01/13/2019 12:00 AM EDT POC GLU MONITORING DEVICE Routine 01/12/2019 9:43 PM EDT POC GLU MONITORING DEVICE Routine 01/12/2019 6:33 PM EDT POC GLU MONITORING DEVICE Routine 01/12/2019 1:53 PM EDT US DUPLEX [id number] COMPLETE STAT 01/12/2019 1:22 PM EDT US ABDOMEN COMPLETE STAT 01/12/2019 1 :22 PM EDT POC GLU MONITORING DEVICE Routine 01/12/2019 9:19 AM EDT SERUM PROT ELECTROPHORESIS,RFX IT Routine 01/12/2019 4:18 AM EDT TERESA (IFA) WITH TITER Routine 01/12/2019 4:18 AM EDT CRYOGLOBULIN Routine 01/12/2019 4:18 AM EDT C3 COMPLEMENT Routine 01/12/2019 4:18 AM EDT C4 COMPLEMENT Routine 01/12/2019 4:18 AM EDT URINALYSIS, MICROSCOPIC STAT 01/13/20 2:33 AM EDT URINALYSIS-MACROSCOPIC W/REFLEX TO MICROSCOPIC STAT 01/12/2019 2:33 AM EDT SODIUM, URINE, RANDOM STAT 01/12/2019 2:33 AM EDT PROTEIN, URINE, RANDOM STAT 9 2:33 AM EDT POTASSIUM, URINE, RANDOM STAT 01/12/2019 2:33 AM EDT CREATININE, URINE, RANDOM Routine 01/12/2019 2:33 AM EDT CHLORIDE, URINE, RANDOM STAT 01/13/20 19 2:33 AM EDT ANTIBODY IDENTIFICATION Routine 01/13/20 2:14 AM EDT ELIUD ANTI-IGG Routine 01/12/2019 12:59 AM EDT XR CHEST PA AND LATERAL STAT 01/13/20 12:44 AM EDT HEPATIC FUNCTION PANEL STAT 9 9:31 PM EDT ABO/RH STAT 01/11/2019 9:31 PM EDT DIFFERENTIAL STAT 01/11/2019 9:31 PM EDT CBC STAT 01/11/2019 9:31 PM EDT ANTIBODY SCREEN STAT 01/11/2019 9:31 PM EDT BASIC METABOLIC PANEL STAT 01/11/2019 9:31 PM EDT documented in this encounter Results * Cytomegalovirus DNA, Quant, Rt PCR (01/17/2019 1:16 PM EDT) Pathologist [facility] CMV DNA Qnt <137 IU/mL 01/17/2019 1:32 PM EDT [facility] Comment:Test methodology for CMV quantification is an FDA-approved nucleic acid amplification assay. The Lower Limit of Quantitation (LLOQ) is 137 IU/mL; the linear range is 137- 9,100,000 IU/mL. The limit of Detection is (LoD) is 91 IU/mL. Log10 CMV Qn DNA PI See Note log 10 IU/mL 01/17/2019 1:32 PM EDT [facility] Comment: CMV DNA has been detected, but not quantifiable. ??CMV DNA is below the LLoQ for the assay. ??Log IU/mL cannot be calculated. Plasma specimen (specimen) 01/17/2019 1:16 PM EDT 01/17/2019 1:32 PM EDT us Shelley Martinez MD LAB BLOOD ORDERABLES Yoselin l Result Performing Organization Address City/[facility]/ZIP Co de Phone Number [facility] [address] [facility]. [address] * (ABNORMAL) POC Glucose Monitoring Device (01/17/2019 1:15 PM EDT) [facility] POC Glucose Monitoring Device 233(H) 70 - 100 mg/dL 01/17/2019 1:16 PM EDT [facility] Blood specimen (specimen) 01/17/2019 1:15 PM EDT 01/17/2019 1:15 PM EDT us Malinda Rhodes MD POINT OF CARE TEST KIESHA CORONA Final Result [facility] [address] * (ABNORMAL) POC Glucose Monitoring Device (01/17/2019 8:12 AM EDT) [facility] POC Glucose Monitoring Device 120(H) 70 - 100 mg/dL 01/17/2019 8:13 AM EDT [facility] Blood specimen (specimen) 01/17/2019 8:12 AM EDT 01/17/2019 8:13 AM EDT us Malinda Rhodes MD POINT OF CARE TEST ORDE BHAVINBERHANE Final Result Performing Organization Address [facility] Co de Phone Number [facility] [address] [facility] * Magnesium, AM (01/17/2019 5:32 AM EDT) Magnesium 2.0 1.5 - 2.5 mg/dL 01/17/2019 6:33 AM EDT [facility] Plasma specimen (specimen) 01/17/2019 5:32 AM EDT 01/17/2019 6:02 AM EDT us Lonnie Valles MD LAB BLOOD ORDERABLES Final Res ult Performing Organization Address [facility] Co de Phone Number [facility] [address] [facility] * (ABNORMAL) Renal Function Panel w/EGFR (01/17/2019 5:32 AM EDT) Sodium 141 133 - 146 mmol/L 01/17/2019 6:33 AM EDT [facility] Potassium 4.8 3.5 - 5.3 mmol/L 01/17/2019 6:33 AM EDT [facility] Chloride 105 98 - 110 mmol/L 01/17/2019 6:33 AM EDT [facility] CO2 26 21 - 33 mmol/L 01/17/2019 6:33 AM EDT [facility] Anion Gap 10 3 - 16 mmol/L 01/17/2019 6:33 AM EDT [facility] BUN 45(H) 7 - 25 mg/dL 01/17/2019 6:33 AM EDT [facility] Creatinine 3.98(H) 0.60 - 1.30 mg/dL 01/17/2019 6:33 AM EDT [facility] Glucose 90 70 - 100 mg/dL 01/17/2019 6:33 AM EDT [facility] Calcium 8.1(L) 8.6 - 10.3 mg/dL 01/17/2019 6:33 AM EDT [facility] Phosphorus 4.8(H) 2.1 - 4.7 mg/dL 01/17/2019 6:33 AM EDT [facility] Albumin 2.8(L) 3.5 - 5.7 g/dL 01/17/2019 6:33 AM EDT [facility] Osmolality, Calculated 303 278 - 305 mOsm/kg 01/17/2019 6:33 AM EDT [facility] eGFR AA CKD-EPI 20 See note. 9 6:33 AM EDT [facility] [...] equation to estimate glomerular filtration rate. ??Jennifer Director Of Product Development Med. 2009:150(9):604-12 eGFR NONAA CKD-EPI 17 See note. 2018 6:33 AM EDT [facility] [...] equation to estimate glomerular filtration rate. ??Jennifer Director Of Product Development Med. 2009:150(9):604-12 Plasma specimen (specimen) 01/17/2019 5:32 AM EDT 01/17/2019 6:02 AM EDT us Lonnie Valles MD LAB BLOOD ORDERABLES Final Res ult Performing Organization Address [facility]/ZIP Co de Phone Number [facility] [address] * (ABNORMAL) POC Glucose Monitoring Device (01/16/2019 8:12 PM EDT) POC Glucose Monitoring Device 187(H) 70 - 100 mg/dL 01/16/2019 8:22 PM EDT [facility] Blood specimen (specimen) 01/16/2019 8:12 PM EDT 01/16/2019 8:22 PM EDT us Malinda Rhodes MD POINT OF CARE TEST ORDPravin CORONA Final Result Performing Organization Address [facility] Co de Phone Number [facility] [address] [facility]. [address] * (ABNORMAL) POC Glucose Monitoring Device (01/16/2019 6:58 PM EDT) POC Glucose Monitoring Device 195(H) 70 - 100 mg/dL 01/16/2019 7:00 PM EDT [facility] Blood specimen (specimen) 01/16/2019 6:58 PM EDT 01/16/2019 6:59 PM EDT us Malinda Rhodes MD POINT OF CARE TEST ORDPravin CORONA Final Result Performing Organization Address [facility]/ZIP Co de Phone Number [facility] [address] [facility]. [address] * (ABNORMAL) POC Glucose Monitoring Device (01/16/2019 2:20 PM EDT) POC Glucose Monitoring Device 120(H) 70 - 100 mg/dL 01/16/2019 2:20 PM EDT [facility] Blood specimen (specimen) 01/16/2019 2:20 PM EDT 01/16/2019 2:20 PM EDT Malinda Rhodes MD POINT OF CARE TEST ORDPravin DELCIDLES Final Result Performing Organization Address City/[facility]/ZIP Co de Phone Number [facility] [address] * (ABNORMAL) POC Glucose Monitoring Device (01/16/2019 9:28 AM EDT) POC Glucose Monitoring Device 138(H) 70 - 100 mg/dL 01/16/2019 9:29 AM EDT [facility] Blood specimen (specimen) 01/16/2019 9:28 AM EDT 01/16/2019 9:29 AM EDT us Malinda Rhodes MD POINT OF CARE TEST KIESHA BHAVINBERHANE Final Result Performing Organization Address [facility] Co de Phone Number [facility] [address] * Echo 2D Comp. w/Contrast (TTE) (01/16/2019 8:44 AM EDT) 01/16/2019 7:05 AM EDT Narrative [facility] - 01/16/2019 10:21 AM EDT ? * [facility]* ? [address] [place] [address] ?[place] [address] ?[phone] Transthoracic Echocardiography Patient: ?Aiden Stauffer MR #: ? [id number] Account: Study Date: 01/16/2019 Gender: ? M Age: ?43 : ?1975 Room: ? [facility] PERFORMING ??Jose C Matthews ATTENDING ?? Lonnie Valles ORDERING ?Lonnie Valles REFERRING ?? Lonnie Valles ADMITTING ?? Malinda Rhodes DRIVER UTILITY WORKER ?Magdy Stewart [facility] Procedure:ECHO 2D COMPLETE Order:ECHO 2D COMPLETE Accession W/CONTRAST (TTE) ? W/CONTRAST (TTE) ? Number:[id number] ?[id number] Indications: ?Edema, peripheral. Risk factors: ??Hepatic ecncephalopathy, liver transplant 10/08/17, left and rigth heart cath 06/05/18. Hypertension. Diabetes mellitus. Study data: ??Comparison was made to the study of 10/10/2017. ??Study status: ??Routine. ??Procedure: ??Transthoracic echocardiography. Image quality was good. Scanning was performed from the parasternal, apical, and subcostal acoustic windows. ?Transthoracic echocardiography. ??M-mode, complete 2D, complete spectral Doppler, and color Doppler. ??Birthdate: ??Patient birthdate: 1975. ??Age: Patient is 43yr old. ??Sex: ??Gender: male. ??Height: ??Height: 67in. Height: 67in. ??Weight: ??Weight: 285.4lb. Weight: 285.4lb. ??Body mass index: ??BMI: 44.8kg/m^2. ??Body surface area: ?BSA: 2.55m^2. ??Blood pressure: ? 127/61 ??Patient status: ??Inpatient. ??Study date: Study date: 01/16/2019. Study time: 07:05 AM. ??Location: ??Echo laboratory. Study Conclusions - Left ventricle: The cavity size was normal. Wall thickness was ??increased in a pattern of mild LVH. Systolic function was normal. ??The estimated ejection fraction was in the range of 55% to 60%. ??Wall motion was normal; there were no regional wall motion ??abnormalities. Indeterminate LV diastolic function. - Right ventricle: Systolic function was normal. TAPSE: ??2.2cm.Tricuspid annular systolic velocity: 14.4cm/s. - Right atrium: The atrium was mildly dilated. - Atrial septum: Agitated saline contrast study showed no ??ubuqi-at-yeef atrial level shunt, in the baseline state. Impressions: - Prior study date 10/10/17. - Compared to the prior study, there is no apparent septal ??flattening in the current study. Otherwise, there has been no ??significant interval change. Cardiac Anatomy Left ventricle: - The cavity size was normal. Wall thickness was increased in a ??pattern of mild LVH. Systolic function was normal. The estimated ??ejection fraction was in the range of 55% to 60%. Wall motion was ??normal; there were no regional wall motion abnormalities. Acoustic ??contrast opacification revealed no evidence ofthrombus. - Wall motion score: 1.00. - Indeterminate LV diastolic function. Aortic valve: - Trileaflet; normal thickness leaflets. Mobility was not ??restricted. Doppler: - Transvalvular velocity was within the normal range. There was no ??stenosis. No regurgitation. - Valve area (VTI): 3.17cm^2. Indexed valve area (VTI): ??1.25cm^2/m^2. Peak velocity ratio of LVOT to aortic valve: 0.89. ??Valve area (Vmax): 3.4cm^2. Indexed valve area (Vmax): ??1.34cm^2/m^2. - Mean gradient (S): 5mm Hg. Peak gradient (S): 9mm Hg. Aorta: ?? Aortic root: - The aortic root was normal in size. Mitral valve: - Structurally normal valve. Mobility was not restricted. Doppler: - Transvalvular velocity was within the normal range. There was no ??evidence for stenosis. No regurgitation. - Valve area by pressure half-time: 4.1cm^2. Indexed valve area by ??pressure half-time: 1.6cm^2/m^2. - Peak gradient (D): 4mm Hg. Left atrium: - The atrium was normal in size. Atrial septum: - Agitated saline contrast study showed no obyxo-na-mmug atrial ??level shunt, in the baseline state. Right ventricle: - The cavity size was normal. Wall thickness was normal. Systolic ??function was normal. TAPSE: 2.2cm.Tricuspid annular systolic ??velocity: 14.4cm/s. Pulmonic valve: - Poorly visualized. Doppler: - Transvalvular velocity was within the normal range. There was no ??evidence for stenosis. No regurgitation. - Peak gradient (S): 8mm Hg. Tricuspid valve: - Structurally normal valve. Doppler: - Transvalvular velocity was within the normal range. Mild ??regurgitation. Pulmonary artery: - Not well visualized. Systolic pressure could not be accurately ??estimated. Right atrium: - The atrium was mildly dilated. Pericardium: - There was no pericardial effusion. Systemic veins: Inferior vena cava: - Not well visualized. Measurements Left ventricle ?Value ?10/10/2017 Reference LV ID, ED, PLAX ? (N) ? 5.0 ?? cm ? 5.1 ?4.2 - 5.9 LV ID, ES, PLAX ? 3.4 ?? cm ? 3.7 ? LV fx shortening, ? (N) ? 32 ?% ?28 ? 25 - 43 PLAX LV mid-wall fx ?(L) ? 10 ?% ?14 ? 14 - 22 shortening, PLAX LV fx shortening, ? (N) ? 30 ?% ? 25 - 43 PLAX chordal LV ID, ED, PLAX ? (N) ? 5.3 ?? cm ? 4.2 - 5.9 maximal LV PW thickness, ED, ??(H) ? 1.7 ?? cm ? 0.9 ?0.6 - 1.0 PLAX IVS/LV PW ratio, ED, ?1.06 ? 1.27 ? PLAX LV PW thickness, ED ?? (H) ? 1.3 ?? cm ? 0.9 ?0.6 - 1.0 IVS/LV PW ratio, ED ? 0.97 ? 1.22 ? LV end-diastolic ?(N) ? 125 ?? ml ? 67 - 155 volume LV end-systolic ? (N) ? 43 ?ml ? 22 - 58 volume LV ejection fraction ??(N) ? 66 ?% ? >=55 Stroke volume, 2D ? 119 ?? ml ? LV end-diastolic ?(N) ? 49 ?ml/m^2 ?? 35 - 75 volume/bsa LV end-systolic ? (N) ? 17 ?ml/m^2 ?? 12 - 30 volume/bsa Stroke volume/bsa, 2D ? 47 ?ml/m^2 ?? LV ejection fraction, (N) ? 60 ?% ? >=55 1-p A4C Stroke volume, 1-p ?92 ?ml ? A4C Stroke volume/bsa, ?36 ?ml/m^2 ?? 1-p A4C LV end-diastolic ?(H) ? 165 ?? ml ? 67 - 155 volume, 2-p LV end-systolic ? (H) ? 67 ?ml ? 22 - 58 volume, 2-p LV ejection fraction, (N) ? 59 ?% ? >=55 2-p Stroke volume, 2-p ?98 ?ml ? LV end-diastolic ?(N) ? 65 ?ml/m^2 ?? 35 - 75 volume/bsa, 2-p LV end-systolic ? (N) ? 26 ?ml/m^2 ?? 12 - 30 volume/bsa, 2-p Stroke volume/bsa, ?38.5 ??ml/m^2 ?? 2-p LV ID, ED, MM ? (N) ? 5.0 ?? cm ? 4.2 - 5.9 LV ID, ES, MM ? 3.4 ?? cm ? LV fx shortening, MM ??(N) ? 32 ?% ? 25 - 43 LV mid-wall fx ?(L) ? 10 ?% ? 14 - 22 shortening, MM LV PW thickness, ED, ??(H) ? 1.7 ?? cm ? 0.6 - 1.0 MM IVS/LV PW ratio, ED, ?1.06 ? MM LV relative wall ?(H) ? 0.68 ? 0.24 - 0.42 thickness, ED, MM LV wall mass, MM ?(H) ? 408 ?? g ? 88 - 224 LV wall mass/bsa, MM ??(H) ? 160 ?? g/m^2 ? 49 - 115 LV e', lateral ?0.081 m/sec ?0.07 ? LV E/e', lateral ?13 ? 11 ? LV a', lateral ?0.126 m/sec ?0.11 ? LV e'/a', lateral, ?0.64 ? 0.64 ? TDI LV s', lateral ?0.057 m/sec ?0.07 ? LV e', medial ? 0.059 m/sec ?0.04 ? LV E/e', medial ? 18 ? 20 ? LV a', medial ? 0.093 m/sec ?0.08 ? LV e'/a', medial ?0.63 ? 0.5 ? LV s', medial ? 0.06 ??m/sec ?0.07 ? LV e', average ?0.07 ??m/sec ?0.055 ? LV E/e', average ?15 ? 15 ? Ventricular septum ?Value ?10/10/2017 Reference IVS thickness, ED, ?(H) ? 1.8 ?? cm ? 1.2 ?0.6 - 1.0 PLAX IVS thickness, ED ? (H) ? 1.3 ?? cm ? 1.0 ?0.6 - 1.0 IVS thickness, ED, MM (H) ? 1.8 ?? cm ? 0.6 - 1.0 LVOT ?Value ?10/10/2017 Reference LVOT ID, S ?2.2 ?? cm ? LVOT area ? 4 ? cm^2 ? LVOT peak velocity, S ? 1.36 ??m/sec ?1.11 ? LVOT peak gradient, S ? 7 ? mm Hg ?5 ? Aortic valve ?Value ?10/10/2017 Reference Aortic valve peak ? 1.5 ?? m/sec ?1.9 ? velocity, S Aortic valve mean ? 1.01 ??m/sec ? velocity, S Aortic valve VTI, S ? 31.7 ??cm ? Aortic mean gradient, ? 5 ? mm Hg ? S Aortic peak gradient, ? 9 ? mm Hg ? S Aortic valve area, ?3.17 ??cm^2 ? VTI Aortic valve ?1.25 ??cm^2/m^2 area/bsa, VTI Velocity ratio, peak, ? 0.89 ? 0.59 ? LVOT/AV Aortic valve area, ?3.4 ?? cm^2 ? peak velocity Aortic valve ?1.34 ??cm^2/m^2 area/bsa, peak velocity Aorta ? Value ?10/10/2017 Reference Aortic root ID, ED ?(N) ? 3.3 ?? cm ? <4.5 Ascending aorta ID, ? 3.4 ?? cm ? 2.5 ? A-P, S Aortic root ID, ED, ? 3.3 ?? cm ? 3.2 ? MM RVOT ?Value ?10/10/2017 Reference RVOT peak velocity, S ? 1.04 ??m/sec ?1.05 ? RVOT peak gradient, S ? 4 ? mm Hg ?4 ? RVOT mean gradient, S ? 2 ? mm Hg ?3 ? Left atrium ? Value ?10/10/2017 Reference LA ID, A-P, ES ?(H) ? 4.5 ?? cm ? 3.0 - 4.0 LA ID/bsa, A-P ?(N) ? 1.8 ?? cm/m^2 ?? 1.5 - 2.3 LA area, ES, A4C ?(H) ? 21 ?cm^2 ? 26 ? <=20 LA ID, A-P, ES, MM ?(H) ? 4.5 ?? cm ? 5.2 ?3.0 - 4.0 LA ID/bsa, A-P, ES, ?? (N) ? 1.8 ?? cm/m^2 ?? 2.1 ?1.5 - 2.3 MM LA/aortic root ratio, ? 1.36 ? 1.6 ? MM Mitral valve ?Value ?10/10/2017 Reference Mitral E-wave peak ?1.04 ??m/sec ?0.8 ? velocity Mitral A-wave peak ?0.65 ??m/sec ?1.04 ? velocity Mitral deceleration ? 169 ?? ms ? time Mitral pressure ? 50 ?ms ? half-time Mitral peak gradient, ? 4 ? mm Hg ?3 ? D Mitral E/A ratio, ? 1.6 ?0.77 ? peak Mitral valve area, ?4.1 ?? cm^2 ? PHT, DP Mitral valve ?1.6 ?? cm^2/m^2 area/bsa, PHT, DP Right atrium ?Value ?10/10/2017 Reference RA area, ES, A4C ?(H) ? 20 ?cm^2 ? 24 ? 10 - 18 Right ventricle ? Value ?10/10/2017 Reference RV ID, ED, PLAX ? 3.6 ?? cm ? 4.7 ? RV ID, ED, MM ? 3.6 ?? cm ? TAPSE ? 2.2 ?? cm ? Pulmonic valve ?Value ?10/10/2017 Reference Pulmonic valve peak ? 1 ? m/sec ?1 ? velocity, S Pulmonic peak ? 8 ? mm Hg ? gradient, S Legend: (L) ??and ??(H) ??krunal values outside specified reference range. (N) ??moran values inside specified reference range. Reviewed and confirmed by Jose C Matthews [id number] Procedure Note Jose C Matthews MD - 01/16/2019 * [facility]* [address] [place] [address] Transthoracic Echocardiography Patient: Aiden Stauffer MR #: [id number] Account: Study Date: 01/16/2019 Gender: M Age: 43 : 1975 Room: [facility] PERFORMING Jose C Matthews ATTENDING Lonnie Valles ORDERING Lonnie Valles REFERRING Lonnie Valles ADMITTING Malinda Rhodes DRIVER UTILITY WORKER Magdy Stewart [facility] Procedure:ECHO 2D COMPLETE Order:ECHO 2D COMPLETE Accession W/CONTRAST (TTE) W/CONTRAST (TTE) Number:[id number] Indications: Edema, peripheral. Risk factors: Hepatic ecncephalopathy, liver transplant 10/08/17, left and rigth heart cath 06/05/18. Hypertension. Diabetes mellitus. Study data: Comparison was made to the study of 10/10/2017. Study status: Routine. Procedure: Transthoracic echocardiography. Image quality was good. Scanning was performed from the parasternal, apical, and subcostal acoustic windows. Transthoracic echocardiography. M-mode, complete 2D, complete spectral Doppler, and color Doppler. Birthdate: Patient birthdate: 1975. Age: Patient is 43yr old. Sex: Gender: male. Height: Height: 67in. Height: 67in. Weight: Weight: 285.4lb. Weight: 285.4lb. Body mass index: BMI: 44.8kg/m^2. Body surface area: BSA: 2.55m^2. Blood pressure: 127/61 Patient status: Inpatient. Study date: Study date: 01/16/2019. Study time: 07:05 AM. Location: Echo laboratory. Study Conclusions - Left ventricle: The cavity size was normal. Wall thickness was increased in a pattern of mild LVH. Systolic function was normal. The estimated ejection fraction was in the range of 55% to 60%. Wall motion was normal; there were no regional wall motion abnormalities. Indeterminate LV diastolic function. - Right ventricle: Systolic function was normal. TAPSE: 2.2cm.Tricuspid annular systolic velocity: 14.4cm/s. - Right atrium: The atrium was mildly dilated. - Atrial septum: Agitated saline contrast study showed no enltg-lp-pdmc atrial level shunt, in the baseline state. Impressions: - Prior study date 10/10/17. - Compared to the prior study, there is no apparent septal flattening in the current study. Otherwise, there has been no significant interval change. Cardiac Anatomy Left ventricle: - The cavity size was normal. Wall thickness was increased in a pattern of mild LVH. Systolic function was normal. The estimated ejection fraction was in the range of 55% to 60%. Wall motion was normal; there were no regional wall motion abnormalities. Acoustic contrast opacification revealed no evidence ofthrombus. - Wall motion score: 1.00. - Indeterminate LV diastolic function. Aortic valve: - Trileaflet; normal thickness leaflets. Mobility was not restricted. Doppler: - Transvalvular velocity was within the normal range. There was no stenosis. No regurgitation. - Valve area (VTI): 3.17cm^2. Indexed valve area (VTI): 1.25cm^2/m^2. Peak velocity ratio of LVOT to aortic valve: 0.89. Valve area (Vmax): 3.4cm^2. Indexed valve area (Vmax): 1.34cm^2/m^2. - Mean gradient (S): 5mm Hg. Peak gradient (S): 9mm Hg. Aorta: Aortic root: - The aortic root was normal in size. Mitral valve: - Structurally normal valve. Mobility was not restricted. Doppler: - Transvalvular velocity was within the normal range. There was no evidence for stenosis. No regurgitation. - Valve area by pressure half-time: 4.1cm^2. Indexed valve area by pressure half-time: 1.6cm^2/m^2. - Peak gradient (D): 4mm Hg. Left atrium: - The atrium was normal in size. Atrial septum: - Agitated saline contrast study showed no [id number] atrial level shunt, in the baseline state. Right ventricle: - The cavity size was normal. Wall thickness was normal. Systolic function was normal. TAPSE: 2.2cm.Tricuspid annular systolic velocity: 14.4cm/s. Pulmonic valve: - Poorly visualized. Doppler: - Transvalvular velocity was within the normal range. There was no evidence for stenosis. No regurgitation. - Peak gradient (S): 8mm Hg. Tricuspid valve: - Structurally normal valve. Doppler: - Transvalvular velocity was within the normal range. Mild regurgitation. Pulmonary artery: - Not well visualized. Systolic pressure could not be accurately estimated. Right atrium: - The atrium was mildly dilated. Pericardium: - There was no pericardial effusion. Systemic veins: Inferior vena cava: - Not well visualized. Measurements Left ventricle Value 10/10/2017 Reference LV ID, ED, PLAX (N) 5.0 cm 5.1 4.2 - 5.9 LV ID, ES, PLAX 3.4 cm 3.7 LV fx shortening, (N) 32 % 28 25 - 43 PLAX LV mid-wall fx (L) 10 % 14 14 - 22 shortening, PLAX LV fx shortening, (N) 30 % 25 - 43 PLAX chordal LV ID, ED, PLAX (N) 5.3 cm 4.2 - 5.9 maximal LV PW thickness, ED, (H) 1.7 cm 0.9 0.6 - 1.0 PLAX IVS/LV PW ratio, ED, 1.06 1.27 PLAX LV PW thickness, ED (H) 1.3 cm 0.9 0.6 - 1.0 IVS/LV PW ratio, ED 0.97 1.22 LV end-diastolic (N) 125 ml 67 - 155 volume LV end-systolic (N) 43 ml 22 - 58 volume LV ejection fraction (N) 66 % >=55 Stroke volume, 2D 119 ml LV end-diastolic (N) 49 ml/m^2 35 - 75 volume/bsa LV end-systolic (N) 17 ml/m^2 12 - 30 volume/bsa Stroke volume/bsa, 2D 47 ml/m^2 LV ejection fraction, (N) 60 % >=55 1-p A4C Stroke volume, 1-p 92 ml A4C Stroke volume/bsa, 36 ml/m^2 1-p A4C LV end-diastolic (H) 165 ml 67 - 155 volume, 2-p LV end-systolic (H) 67 ml 22 - 58 volume, 2-p LV ejection fraction, (N) 59 % >=55 2-p Stroke volume, 2-p 98 ml LV end-diastolic (N) 65 ml/m^2 35 - 75 volume/bsa, 2-p LV end-systolic (N) 26 ml/m^2 12 - 30 volume/bsa, 2-p Stroke volume/bsa, 38.5 ml/m^2 2-p LV ID, ED, MM (N) 5.0 cm 4.2 - 5.9 LV ID, ES, MM 3.4 cm LV fx shortening, MM (N) 32 % 25 - 43 LV mid-wall fx (L) 10 % 14 - 22 shortening, MM LV PW thickness, ED, (H) 1.7 cm 0.6 - 1.0 MM IVS/LV PW ratio, ED, 1.06 MM LV relative wall (H) 0.68 0.24 - 0.42 thickness, ED, MM LV wall mass, MM (H) 408 g 88 - 224 LV wall mass/bsa, MM (H) 160 g/m^2 49 - 115 LV e', lateral 0.081 m/sec 0.07 LV E/e', lateral 13 11 LV a', lateral 0.126 m/sec 0.11 LV e'/a', lateral, 0.64 0.64 TDI LV s', lateral 0.057 m/sec 0.07 LV e', medial 0.059 m/sec 0.04 LV E/e', medial 18 20 LV a', medial 0.093 m/sec 0.08 LV e'/a', medial 0.63 0.5 LV s', medial 0.06 m/sec 0.07 LV e', average 0.07 m/sec 0.055 LV E/e', average 15 15 Ventricular septum Value 10/10/2017 Reference IVS thickness, ED, (H) 1.8 cm 1.2 0.6 - 1.0 PLAX IVS thickness, ED (H) 1.3 cm 1.0 0.6 - 1.0 IVS thickness, ED, MM (H) 1.8 cm 0.6 - 1.0 LVOT Value 10/10/2017 Reference LVOT ID, S 2.2 cm LVOT area 4 cm^2 LVOT peak velocity, S 1.36 m/sec 1.11 LVOT peak gradient, S 7 mm Hg 5 Aortic valve Value 10/10/2017 Reference Aortic valve peak 1.5 m/sec 1.9 velocity, S Aortic valve mean 1.01 m/sec velocity, S Aortic valve VTI, S 31.7 cm Aortic mean gradient, 5 mm Hg S Aortic peak gradient, 9 mm Hg S Aortic valve area, 3.17 cm^2 VTI Aortic valve 1.25 cm^2/m^2 area/bsa, VTI Velocity ratio, peak, 0.89 0.59 LVOT/AV Aortic valve area, 3.4 cm^2 peak velocity Aortic valve 1.34 cm^2/m^2 area/bsa, peak velocity Aorta Value 10/10/2017 Reference Aortic root ID, ED (N) 3.3 cm <4.5 Ascending aorta ID, 3.4 cm 2.5 A-P, S Aortic root ID, ED, 3.3 cm 3.2 MM RVOT Value 10/10/2017 Reference RVOT peak velocity, S 1.04 m/sec 1.05 RVOT peak gradient, S 4 mm Hg 4 RVOT mean gradient, S 2 mm Hg 3 Left atrium Value 10/10/2017 Reference LA ID, A-P, ES (H) 4.5 cm 3.0 - 4.0 LA ID/bsa, A-P (N) 1.8 cm/m^2 1.5 - 2.3 LA area, ES, A4C (H) 21 cm^2 26 <=20 LA ID, A-P, ES, MM (H) 4.5 cm 5.2 3.0 - 4.0 LA ID/bsa, A-P, ES, (N) 1.8 cm/m^2 2.1 1.5 - 2.3 MM LA/aortic root ratio, 1.36 1.6 MM Mitral valve Value 10/10/2017 Reference Mitral E-wave peak 1.04 m/sec 0.8 velocity Mitral A-wave peak 0.65 m/sec 1.04 velocity Mitral deceleration 169 ms time Mitral pressure 50 ms half-time Mitral peak gradient, 4 mm Hg 3 D Mitral E/A ratio, 1.6 0.77 peak Mitral valve area, 4.1 cm^2 PHT, DP Mitral valve 1.6 cm^2/m^2 area/bsa, PHT, DP Right atrium Value 10/10/2017 Reference RA area, ES, A4C (H) 20 cm^2 24 10 - 18 Right ventricle Value 10/10/2017 Reference RV ID, ED, PLAX 3.6 cm 4.7 RV ID, ED, MM 3.6 cm TAPSE 2.2 cm Pulmonic valve Value 10/10/2017 Reference Pulmonic valve peak 1 m/sec 1 velocity, S Pulmonic peak 8 mm Hg gradient, S Legend: (L) and (H) krunal values outside specified reference range. (N) moran values inside specified reference range. Reviewed and confirmed by Jose C Matthews [id number] Lonnie Valles MD CV ECHO ORDERABLES Final Resul t [facility] * Magnesium, AM (01/16/2019 4:27 AM EDT) Magnesium 1.8 1.5 - 2.5 mg/dL 01/16/2019 5:14 AM EDT [facility] Plasma specimen (specimen) 01/16/2019 4:27 AM EDT 01/16/2019 4:45 AM EDT Lonnie Valles MD LAB BLOOD ORDERABLES Final Res ult [facility] [address] * (ABNORMAL) Renal Function Panel w/EGFR (01/16/2019 4:27 AM EDT) Sodium 140 133 - 146 mmol/L 01/16/2019 5:14 AM EDT [facility] Potassium 5.3 3.5 - 5.3 mmol/L 01/16/2019 5:14 AM EDT [facility] Chloride 106 98 - 110 mmol/L 01/16/2019 5:14 AM EDT [facility] CO2 26 21 - 33 mmol/L 01/16/2019 5:14 AM EDT [facility] Anion Gap 8 3 - 16 mmol/L 01/16/2019 5:14 AM EDT [facility] BUN 42(H) 7 - 25 mg/dL 01/16/2019 5:14 AM EDT [facility] Creatinine 3.83(H) 0.60 - 1.30 mg/dL [facility]/16[facility]2019 [facility] Glucose 152(H) 70 - 100 mg/dL 01/16/2019 5:14 AM EDT [facility] Calcium 8.1(L) 8.6 - 10.3 mg/dL 01/16/2019 5:14 AM EDT [facility] Phosphorus 4.9(H) 2.1 - 4.7 mg/dL 01/16/2019 5:[facility] Albumin 2.7(L) 3.5 - 5.7 g/dL 01/16/2019 5:14 [facility] Osmolality, Calculated 303 278 - 305 mOsm/kg 01/16/2019 5:14 AM EDT [facility] eGFR AA CKD-EPI 21 See note. 9 5:14 [facility] Comment: As of 2015 the [...] equation to estimate glomerular filtration rate. ??Jennifer Director Of Product Development Med. 2009:150(9):604-12 eGFR NONAA CKD-EPI 18 See note. 2018 5:14 AM EDT [facility] [...] equation to estimate glomerular filtration rate. ??Jennifer Director Of Product Development Med. 2009:150(9):604-12 Plasma specimen (specimen) 01/16/2019 4:27 AM EDT 01/16/2019 4:45 AM EDT us Lonnie Valles MD LAB BLOOD ORDERABLES Final Res ult [facility] [address] * (ABNORMAL) POC Glucose Monitoring Device (01/15/2019 5:34 PM EDT) POC Glucose Monitoring Device 169(H) 70 - 100 mg/dL 01/15/2019 5:36 PM EDT [facility] Blood specimen (specimen) 01/15/2019 5:34 PM EDT 01/15/2019 5:36 PM EDT us Malinda Rhodes MD POINT OF CARE TEST KIESHA CORONA Final Result Performing Organization Address [facility]/State/ZIP Co de Phone Number [facility] [address] * POC Glucose Monitoring Device (01/15/2019 3:17 PM EDT) POC Glucose Monitoring Device 97 70 - 100 mg/dL 01/15/2019 3:17 PM EDT [facility] Blood specimen (specimen) 01/15/2019 3:17 PM EDT 01/15/2019 3:17 PM EDT us Malinda Rhodes MD POINT OF CARE TEST KIESHA CORONA Final Result [facility] [address] * Miscellaneous Reference Test (01/15/2019 2:38 PM EDT) Pathologist [facility] Performing Lab [facility] 03/08/2019 4:16 PM EDT [facility] RESULT See Scanned Report in EPIC Lab tab. 03/08/2019 4:16 PM EDT [facility] Test Name [id number] 03/08/2019 4:16 PM EDT [facility] Miscellaneous samples (specimen) 01/15/2019 2:38 PM EDT 03/08/2019 4:16 PM EDT Narrative [facility] - 03/08/2019 4:16 PM EDT TC [id number] Parvo B19 PCR us Shelley Martinez MD LAB BLOOD ORDERABLES Yoselin l Result Performing Organization Address City/[facility]/ZIP Co de Phone Number [facility] [address] [facility]. [address] * POC Glucose Monitoring Device (01/15/2019 8:31 AM EDT) [facility] POC Glucose Monitoring Device 96 70 - 100 mg/dL 01/15/2019 8:32 AM EDT [facility] Blood specimen (specimen) 01/15/2019 8:31 AM EDT 01/15/2019 8:31 AM EDT us Malinda Rhodes MD POINT OF CARE TEST KIESHA CORONA Final Result [facility] [address] * BK Virus Quantitative By PCR, Blood (01/15/2019 6:47 AM EDT) BK Virus Quant PCR Copy PL 0 copies/mL 01/25/2019 11:34 AM EDT [facility] Comment: Testing performed by [facility], [address] [place] [address], [place], [place]. This test(s) was developed and its performance characteristics determined and validated by the Department of Pathology and Laboratory Medicine at [facility]. ??It has not been cleared or approved by the U.S. Food and Drug Administration. ??The FDA has determined that such clearance is not necessary. ??This laboratory is certified under the Clinical Laboratory Improvement Amendments of 1988 (CLIA-88) as qualified to perform high-complexity laboratory testing. Plasma specimen (specimen) 01/15/2019 6:47 AM EDT 01/25/2019 11:34 AM EDT Shelley Martinez MD LAB BLOOD ORDERABLES Yoselin l Result Performing Organization Address [facility]/ZIP Co de Phone Number [facility] [address] [place] [address] * Ferritin (01/15/2019 6:47 AM EDT) Ferritin 56.3 23.9 - 336.2 ng/mL 01/15/2019 8:05 AM EDT [facility] Serum specimen (specimen) 01/15/2019 6:47 AM EDT 01/15/2019 7:19 AM EDT Shelley Martinez MD LAB BLOOD ORDERABLES Yoselin l Result Performing Organization Address [facility]/State/ZIP Co de Phone Number [facility] [address] [place] [address] * Iron Studies (Iron + TIBC) (01/15/2019 6:47 AM EDT) Iron 61 50 - 212 ug/dL 01/15/2019 7:46 AM EDT [facility] % Iron Saturation 22.3 15.0 - 55.0 % 01/15/2019 7:46 AM EDT [facility] TIBC 273 261 - 462 ug/dL 01/15/2019 7:46 AM EDT [facility] Serum specimen (specimen) 01/15/2019 6:47 AM EDT 01/15/2019 7:20 AM EDT Shelley Martinez MD LAB BLOOD ORDERABLES Yoselin l Result Performing Organization Address [facility]/ZIP Co de Phone Number [facility] [address] * Magnesium, AM (01/15/2019 6:47 AM EDT) Magnesium 1.7 1.5 - 2.5 mg/dL 01/15/2019 7:46 AM EDT [facility] Plasma specimen (specimen) 01/15/2019 6:47 AM EDT 01/15/2019 7:20 AM EDT Malinda Rhodes MD LAB BLOOD ORDERABLES Fi nal Result Performing Organization Address [facility]/ZIP Co de Phone Number [facility] [address] * (ABNORMAL) CBC, AM (01/15/2019 6:47 AM EDT) WBC 3.3(L) 3.8 - 10.8 10E3/uL 01/15/2019 7:30 AM EDT [facility] RBC 3.37(L) 4.20 - 5.80 10E6/uL 01/15/2019 7:30 AM EDT [facility] Hemoglobin 9.5(L) 13.2 - 17.1 g/dL 01/15/2019 7:30 AM EDT [facility] Hematocrit 29.0(L) 38.5 - 50.0 % 01/15/2019 7:30 AM EDT [facility] MCV 86.0 80.0 - 100.0 fL 01/15/2019 7:30 AM EDT [facility] MCH 28.2 27.0 - 33.0 pg 01/15/2019 7:30 AM EDT [facility] MCHC 32.8 32.0 - 36.0 g/dL 01/15/2019 7:30 AM EDT [facility]ALTH LAB RDW 14.7 11.0 - 15.0 % 01/15/2019 7:30 AM EDT [facility] Platelets 173 140 - 400 10E3/uL 01/15/2019 7:30 AM EDT [facility] MPV 7.0(L) 7.5 - 11.5 fL 01/15/2019 7:30 AM EDT [facility] Whole blood specimen (specimen) 01/15/2019 6:47 AM EDT 01/15/2019 7:20 AM EDT us Malinda Rhodes MD LAB BLOOD ORDERABLES Fi nal Result [facility] [address] [facility]. [place] [address], [facility] * (ABNORMAL) Renal Function Panel w/EGFR (01/15/2019 6:47 AM EDT) Sodium 140 133 - 146 mmol/L 01/15/2019 7:46 AM EDT [facility] Potassium 4.9 3.5 - 5.3 mmol/L 01/15/2019 7:46 AM EDT [facility] Chloride 105 98 - 110 mmol/L 01/15/2019 7:46 AM EDT [facility] CO2 26 21 - 33 mmol/L 01/15/2019 7:46 AM EDT [facility] Anion Gap 9 3 - 16 mmol/L 01/15/2019 7:46 AM EDT [facility] BUN 38(H) 7 - 25 mg/dL 01/15/2019 7:46 AM EDT [facility] Creatinine 3.61(H) 0.60 - 1.30 mg/dL 01/15/2019 7:46 AM EDT [facility] Glucose 92 70 - 100 mg/dL 01/15/2019 7:46 AM EDT [facility] Calcium 8.0(L) 8.6 - 10.3 mg/dL 01/15/2019 7:46 AM EDT [facility] Phosphorus 5.3(H) 2.1 - 4.7 mg/dL 01/15/2019 7:46 AM EDT [facility] Albumin 2.8(L) 3.5 - 5.7 g/dL 01/15/2019 7:46 AM EDT [facility] Osmolality, Calculated 299 278 - 305 mOsm/kg 01/15/2019 7:46 AM EDT [facility] eGFR AA CKD-EPI 22 See note. 7:46 AM EDT [facility] [...] equation to estimate glomerular filtration rate. ??Jennifer Director Of Product Development Med. 2009:150(9):604-12 eGFR NONAA CKD-EPI 19 See note. 2018 7:46 AM EDT [facility] [...] equation to estimate glomerular filtration rate. ??Jennifer Director Of Product Development Med. 2009:150(9):604-12 Plasma specimen (specimen) 01/15/2019 6:47 AM EDT 01/15/2019 7:20 AM EDT us Malinda Rhodes MD LAB BLOOD ORDERABLES Fi nal Result [facility] [address] [place] [address], [facility] * Prepare RBC, leukoreduced (01/15/2019 12:07 AM EDT) Product Code [id number] [facility] Unit Number [id number] [facility] Dispense Status Released from Crossmatch_RE [facility]LL Blood Expiration Date [facility] Coding System [id number] [facility] Product Code M2557I00 [facility] Unit Number [id number] [facility] Dispense Status Released from [employer] [facility]LL Blood Expiration Date [id number] HCLL Coding System [id number] HCLL us Attending Provider Unknown BLOOD BANK PRODUCT OR DERABLES Final Result [facility] * LAB (01/15/2019 12:00 AM EDT) us Scanning [facility] NURSING INFORMATIONAL/COMMUNICAT ION ORDERABLES Final Result * LAB (01/15/2019 12:00 AM EDT) Scanning [facility] NURSING INFORMATIONAL/COMMUNICAT ION ORDERABLES Final Result * (ABNORMAL) POC Glucose Monitoring Device (01/14/2019 11:35 PM EDT) Pathologist [facility] POC Glucose Monitoring Device 174(H) 70 - 100 mg/dL 01/14/2019 11:36 PM EDT [facility] Blood specimen (specimen) 01/14/2019 11:35 PM EDT 01/14/2019 11:36 PM EDT us Malinda Rhodes MD POINT OF CARE TEST ORDE RABLES Final Result Performing Organization Address City/[facility]/ZIP Co de Phone Number [facility] [address] * (ABNORMAL) [place]/lambda, Free Light Chains 24 hr Ur (01/14/2019 10:23 PM EDT) Free [place] Lt Chains,Ur 119.25(H) 0.39 - 15.10 mg/L 01/16/2019 3:27 PM EDT [facility] Free [place] Lt Chains,Ur 20.60(H) 0.81 - 10.10 mg/L 01/16/2019 3:27 PM EDT [facility] [place]/Lambda Ratio,U 5.79(H) 0.46 - 4.00 ratio 01/16/2019 3:27 PM EDT [facility] Timed urine specimen (specimen) 01/14/2019 10:23 PM EDT 01/16/2019 11:33 AM EDT us Malinda Rhodes MD URINE ORDERABLES Final Result [facility] [address] * BK Virus Quantitative By PCR, Urine (01/14/2019 10:23 PM EDT) BK Virus Quant PCR UR 0 [facility] Comment: Testing performed by [facility], [address] [place] [address]. This test(s) was developed and its performance characteristics determined and validated by the Department of Pathology and Laboratory Medicine at [facility]. ??It has not been cleared or approved by the U.S. Food and Drug Administration. ??The FDA has determined that such clearance is not necessary. ??This laboratory is certified under the Clinical Laboratory Improvement Amendments of 1988 (CLIA-88) as qualified to perform high-complexity laboratory testing. BK Virus Quant PCR Copy UR 0 copies/mL 01/25/2019 12:07 PM EDT [facility] Comment: Testing performed by [facility], [address] [place] [address]. This test(s) was developed and its performance characteristics determined and validated by the Department of Pathology and Laboratory Medicine at [facility]. ??It has not been cleared or approved by the U.S. Food and Drug Administration. ??The FDA has determined that such clearance is not necessary. ??This laboratory is certified under the Clinical Laboratory Improvement Amendments of 1988 (CLIA-88) as qualified to perform high-complexity laboratory testing. Urine specimen (specimen) 01/14/2019 10:23 PM EDT 01/25/2019 12:07 PM EDT Shelley Martinez MD URINE ORDERABLES Final Re sult [facility] [address] * Urine Culture, Special Population (01/14/2019 10:23 PM EDT) Culture Result <1,000 cfu/mL [facility] Culture Result Normal Urogenital Brionna [facility] Mid-stream urine specimen (specimen) URINARY BLADDER STRUCTURE / Unknown 01/14/2019 10:23 PM EDT 01/15/2019 9:11 AM EDT Narrative [facility] - 01/16/2019 1:08 PM EDT This patient is eligible for a standalone urine culture as part of the following special population:->Transplant Robb Hidalgo MD MICROBIOLOGY - GENERAL ORDERAB LES Final Result Performing Organization Address [facility] Co de Phone Number [facility] [address] * Creatinine, Urine, 24 Hour (01/14/2019 10:23 PM EDT) Creatinine, Urine 39.50 mg/dL 01/15/2019 4:08 AM EDT [facility] Creatinine, 24 Hour Urine 1.74 1.00 - 2.00 g/24 hr 01/15/2019 4:08 AM EDT [facility] Urine Volume 4,400 mL 01/15/2019 3:43 AM EDT [facility] Timed urine specimen (specimen) 01/14/2019 10:23 PM EDT 01/15/2019 1:13 AM EDT Robb Hidalgo MD URINE ORDERABLES Final Result Performing Organization Address [facility]/ZIP Co de Phone Number [facility] [address] * (ABNORMAL) Protein, urine, 24 hour (01/14/2019 10:23 PM EDT) Creatinine, Urine 39.50 mg/dL 01/15/2019 4:08 AM EDT [facility] Protein, Ur 305 mg/dL 01/15/2019 4:08 AM EDT [facility] Creatinine, 24 Hour Urine 1.74 1.00 - 2.00 g/24 hr 01/15/2019 4:08 AM EDT [facility] Urine Volume 4,400 mL 01/15/2019 3:43 AM EDT [facility] Protein, 24H Urine 13,420.0(H ) 50.0 - 80.0 mg/24 hr 01/15/2019 4:08 AM EDT [facility] Timed urine specimen (specimen) 01/14/2019 10:23 PM EDT 01/15/2019 1:13 AM EDT us Robb Hidalgo MD URINE ORDERABLES Final Result Performing Organization Address City/State/[facility] Co de Phone Number [facility] [address] * Ur Protein Electrophoresis Random, w/RFX (01/14/2019 10:23 PM EDT) Albumin Electrophoresis 198.1 mg/dL 01/16/2019 11:12 AM EDT [facility] Alpha 1, Urine 34.7 mg/dL 01/18/2019 8:32 AM EDT [facility] Alpha 2, Urine 17.2 mg/dL 01/18/2019 8:32 AM EDT [facility] Beta, Urine 29.9 mg/dL 01/18/2019 8:32 AM EDT [facility] Gamma Globulin, Urine 22.0 mg/dL 01/18/2019 8:32 AM EDT [facility] M Corey Urine 0.0 mg/dL 01/18/2019 8:32 AM EDT [facility] Interpretation (UPE) See Note 01/18/2019 8:32 AM EDT [facility] Comment:Urine immunofixation negative for monoclonal proteins. Prominent albumin, alpha-1, alpha-2, beta and gamma globulins in a pattern resembling serum is consistent with a non-selective proteinuria. Reviewed by Dr. Joan Fung DO. Total Protein, Ur 302 mg/dL 019 1:53 AM EDT [facility] Comment:Reference range not established for this test. Urine specimen (specimen) 01/14/2019 10:23 PM EDT 01/15/2019 1:13 AM EDT Narrative [facility] - 01/18/2019 8:32 AM EDT This assay has been modified from the seal delivery vehicle team technician's specifications and has been validated with performance characteristics determined by [facility] in accordance with federal regulations under the Clinical Laboratory Act Amendment of 1988. The modification has not been approved by the FDA which has determined that such approval is not necessary. The test is for clinical purposes and should not be regarded as investigational or for research use. Robb Hidalgo MD URINE ORDERABLES Final Result Performing Organization Address [facility] de Phone Number [facility] [address] * (ABNORMAL) POC Glucose Monitoring Device (01/14/2019 7:22 PM EDT) POC Glucose Monitoring Device 142(H) 70 - 100 mg/dL 01/14/2019 7:23 PM EDT [facility] Blood specimen (specimen) 01/14/2019 7:22 PM EDT 01/14/2019 7:23 PM EDT Malinda Rhodes MD POINT OF CARE TEST ORDE RABLES Final Result Performing Organization Address [facility] Co de Phone Number [facility] [address] [facility]. [address] * (ABNORMAL) POC Glucose Monitoring Device (01/14/2019 1:40 PM EDT) POC Glucose Monitoring Device 131(H) 70 - 100 mg/dL 01/14/2019 1:41 PM EDT [facility] Blood specimen (specimen) 01/14/2019 1:40 PM EDT 01/14/2019 1:40 PM EDT us Malinda Rhodes MD POINT OF CARE TEST KIESHA CORONA Final Result [facility] [address] [place] [address], [facility] * Histone Antibody (01/14/2019 12:58 PM EDT) Pathologist [facility] Histone Ab 0.2 0.0 - 0.9 Units 01/16/2019 12:17 PM EDT [facility] Comment: ? Negative ?<1.0 ? Weak Positive ?1.0 - 1.5 ? Moderate Positive ??1.6 - 2.5 ? Strong Positive ? >2.5 Serum specimen (specimen) 01/14/2019 12:58 PM EDT 01/17/2019 4:07 PM EDT Narrative [facility] - 01/17/2019 4:07 PM EDT PERFORMED AT: [address] [id number] ADDICTION TREATMENT COUNSELOR: Jeny Pereyra MD ?? PHONE: [phone] us Shelley Martinez MD LAB BLOOD ORDERABLES Yoselin l Result [facility] [address] [place] [address], [facility] * Lactate Dehydrogenase (01/14/2019 12:58 PM EDT) Pathologist [facility] LD 221 110 - 270 U/L 01/14/2019 2:20 PM EDT [facility] Plasma specimen (specimen) 01/14/2019 12:58 PM EDT 01/14/2019 1:50 PM EDT Shelley Martinez MD LAB BLOOD ORDERABLES Yoselin l Result Performing Organization Address City/[facility] Co de Phone Number [facility] [address] * Haptoglobin (01/14/2019 12:58 PM EDT) Pathologist [facility] Haptoglobin 199 44 - 215 mg/dL 01/14/2019 2:20 PM EDT [facility] Serum specimen (specimen) 01/14/2019 12:58 PM EDT 01/14/2019 1:50 PM EDT Result [facility] Shelley Martinez MD LAB BLOOD ORDERABLES Yoselin l Result Performing Organization Address [facility] de Phone Number [facility] [address] [facility]. [address] * (ABNORMAL) Parvovirus B19 Antibody, IgG And IgM (01/14/2019 12:58 PM EDT) Pathologist [facility] Parvovirus B19 IgG 6.3(H) 0.0 - 0.8 index 01/16/2019 4:21 PM EDT [facility] Comment: ? Negative ?<0.9 ? Equivocal ??0.9 - 1.1 ? Positive ?>1.1 Parvovirus B19 IgM 0.3 0.0 - 0.8 index 01/17/2019 3:16 PM EDT [facility] Comment: ? Negative ?<0.9 ? Equivocal ??0.9 - 1.1 ? Positive ?>1.1 Serum specimen (specimen) 01/14/2019 12:58 PM EDT 01/17/2019 4:07 PM EDT Narrative [facility] - 01/17/2019 4:07 PM EDT PERFORMED AT: [address] [id number] ADDICTION TREATMENT COUNSELOR: Jeny Pereyra MD ?? PHONE: [phone] Shelley Martinez MD LAB BLOOD ORDERABLES Yoselin l Result Performing Organization Address [facility] de Phone Number [facility] [address] [facility]. [address] * Double Stranded DNA Ab (01/14/2019 12:58 PM EDT) [facility] ds DNA Ab Negative Negative 01/15/2019 2:20 PM EDT [facility] dsDNA NUM 19 0 - 200 IU/mL 01/15/2019 2:20 PM EDT [facility] Comment: Negative 0-200 IU/mL Equivocal 201-300 IU/mL Moderate Positive 301-800 IU/mL Strong Positive >=801 IU/mL Results were obtained using the [employer] QUANTA Lite dsDNA STEF assay. ??dsDNA values obtained with different manufacturers' assay methods may not be used interchangeably. ??11/03/2015 Serum specimen (specimen) 01/14/2019 12:58 PM EDT 01/14/2019 1:51 PM EDT Shelley Martinez MD LAB BLOOD ORDERABLES Yoselin l Result Performing Organization Address [facility] de Phone Number [facility] [address] [facility]. [address] * (ABNORMAL) Vitamin D 25 hydroxy (01/14/2019 12:58 PM EDT) Vit D, 25-Hydroxy 15.8(L) 30.0 - 100 ng/mL 01/15/2019 11:57 AM EDT [facility] Comment: Vitamin D deficiency has been defined by the [place] of Medicine (IOM) and an Endocrine Society practice guideline as a level of serum 25-OH Vitamin D less than 20 ng/mL. ?? The Endocrine Society went on to further define Vitamin D insufficiency as a level between 21-29 ng/mL. 1) ??IOM. 2010 Dietary reference intakes for calcium and D. ??[place]: The National Academies Press 2) ??Juliana MONTOYA, Leidy CASTELLANO, Khurram MACK, et al. ??Evaluation, treatment, and prevention of Vitamin D deficiency: an Endocrine Society clinical practice guideline. ??JCEM. ??2010; 96(8):1911-30. Serum specimen (specimen) 01/14/2019 12:58 PM EDT 01/14/2019 1:51 PM EDT Shelley Martinez MD LAB BLOOD ORDERABLES Yoselin l Result [facility] [address] [place] [address]. [address] * (ABNORMAL) PTH, Intact (01/14/2019 12:58 PM EDT) PTH 164.0(H) 12.0 - 88.0 pg/mL 01/14/2019 5:22 PM EDT [facility] Serum specimen (specimen) 01/14/2019 12:58 PM EDT 01/14/2019 1:51 PM EDT Shelley Martinez MD LAB BLOOD ORDERABLES Yoselin l Result [facility] [address] [place] [address]. [address] * (ABNORMAL) CMV DNA Qual, PCR (01/14/2019 12:58 PM EDT) Pathologist [facility] CMV DNA, Qual PCR Detected( A) Not Detected 01/15/2019 4:48 PM EDT [facility] Comment: The CMV Qualitative Assay is a nucleic acid amplification test that detects Cytomegalovirus in plasma, CSF, urine, and BAL specimens. The assay is not FDA approved for qualitative determination, but performance characteristics of the test have been determined by [facility]. The laboratory is regulated under the Clinical Laboratory Improvement Act of 1988 as qualified to perform high-complexity testing. The LoD has been determined to be 91 IU/mL. Plasma specimen (specimen) BLOOD SPECIMEN / Unknown 01/14/2019 12:58 PM EDT 01/14/2019 3:28 PM EDT us Robb Hidalgo MD BODY FLUIDS AND STOOLS ORDERAB LES Final Result Performing Organization Address [facility]/ZIP Co de Phone Number [facility] [address] [place] [address]. [address] * (ABNORMAL) POC Glucose Monitoring Device (01/14/2019 8:24 AM EDT) [facility] POC Glucose Monitoring Device 183(H) 70 - 100 mg/dL 01/14/2019 8:25 AM EDT [facility] Blood specimen (specimen) 01/14/2019 8:24 AM EDT 01/14/2019 8:25 AM EDT us Malinda Rhodes MD POINT OF CARE TEST ORDPravin CORONA Final Result Performing Organization Address City/[facility]/ZIP Co de Phone Number [facility] [address] [facility]. [address] * (ABNORMAL) Tacrolimus level (01/14/2019 7:31 AM EDT) [facility] Tacrolimus Lvl <2.0(L) 5.0 - 20.0 ng/mL 01/14/2019 10:56 AM EDT [facility] Comment: Detection limit: ??2 ng/mL. ??Performed via chemiluminescent microparticle immunoassay on the [employer] i1000. Whole blood specimen (specimen) 01/14/2019 7:31 AM EDT 01/14/2019 8:14 AM EDT Robb Hidalgo MD LAB BLOOD ORDERABLES Final Res ult Performing Organization Address [facility] de Phone Number [facility] [address] * Protime-INR (01/14/2019 7:31 AM EDT) Protime 13.6 12.1 - 15.1 seconds 01/14/2019 8:35 AM EDT [facility] Comment:Effective 10/11/2018, the PT and PTMIX reference range has changed from 11.8-14.8 sec to 12.1-15.1 sec. INR ranges are not affected. INR 1.0 0.9 - 1.1 01/14/2019 8:35 AM EDT [facility] Comment: RECOMMENDED THERAPEUTIC RANGES USING INR : ?Stable oral anticoagulant therapy: ? 2.0 - 3.0 ?Mechanical prosthetic heart valve: ? 2.5 - 3.5 ?Recurrent acute myocardial infarction: ? 2.5 - 3.5 Plasma specimen (specimen) 01/14/2019 7:31 AM EDT 01/14/2019 8:13 AM EDT Robb Hidalgo MD LAB BLOOD ORDERABLES Final Res ult Performing Organization Address [facility] de Phone Number [facility] [address] * (ABNORMAL) Hepatic Function Panel (01/14/2019 7:31 AM EDT) Total Bilirubin 0.2 0.0 - 1.5 mg/dL 01/14/2019 8:59 AM EDT [facility] Bilirubin, Direct 0.03 0.00 - 0.40 mg/dL 01/14/2019 8:59 AM EDT [facility] AST 13 13 - 39 U/L 01/14/2019 8:59 AM EDT [facility] ALT 14 7 - 52 U/L 01/14/2019 8:59 AM EDT [facility] Alkaline Phosphatase 137(H) 36 - 125 U/L 01/14/2019 8:59 AM EDT [facility] Total Protein 5.0(L) 6.4 - 8.9 g/dL 01/14/2019 8:59 AM EDT [facility] Albumin 2.7(L) 3.5 - 5.7 g/dL 01/14/2019 8:59 AM EDT [facility] Bilirubin, Indirect 0.17 0.00 - 1.10 mg/dL 01/14/2019 8:59 AM EDT [facility] Plasma specimen (specimen) 01/14/2019 7:31 AM EDT 01/14/2019 8:27 AM EDT us Robb Hidalgo MD LAB BLOOD ORDERABLES Final Res ult [facility] [address] [place] [address], [facility] * (ABNORMAL) Basic metabolic panel (01/14/2019 7:31 AM EDT) Sodium 140 133 - 146 mmol/L 01/14/2019 8:59 AM EDT [facility] Potassium 5.2 3.5 - 5.3 mmol/L 01/14/2019 8:59 AM EDT [facility] Chloride 108 98 - 110 mmol/L 01/14/2019 8:59 AM EDT [facility] CO2 25 21 - 33 mmol/L 01/14/2019 8:59 AM EDT [facility] Anion Gap 7 3 - 16 mmol/L 01/14/2019 8:59 AM EDT [facility] BUN 32(H) 7 - 25 mg/dL 01/14/2019 8:59 AM EDT [facility] Creatinine 3.45(H) 0.60 - 1.30 mg/dL 01/14/2019 8:59 AM EDT [facility] Glucose 134(H) 70 - 100 mg/dL 01/14/2019 8:59 AM EDT [facility] Calcium 7.6(L) 8.6 - 10.3 mg/dL 01/14/2019 8:59 AM EDT [facility] Osmolality, Calculated 299 278 - 305 mOsm/kg 01/14/2019 8:59 AM EDT [facility] eGFR AA CKD-EPI 24 See note. 9 8:59 AM EDT [facility] [...] equation to estimate glomerular filtration rate. ??Jennifer Director Of Product Development Med. 2009:150(9):604-12 eGFR NONAA CKD-EPI 20 See note. 2018 8:59 AM EDT [facility] [...] equation to estimate glomerular filtration rate. ??Jennifer Director Of Product Development Med. 2009:150(9):604-12 Plasma specimen (specimen) 01/14/2019 7:31 AM EDT 01/14/2019 8:27 AM EDT us Robb Hidalgo MD LAB BLOOD ORDERABLES Final Res ult [facility] [address] [facility]. [address] * Differential (01/14/2019 7:31 AM EDT) Neutrophils Relative 51.1 40.0 - 80.0 % 01/14/2019 8:37 AM EDT [facility] Lymphocytes Relative 34.8 15.0 - 45.0 % 01/14/2019 8:37 AM EDT [facility] Monocytes Relative 10.3 0.0 - 12.0 % 01/14/2019 8:37 AM EDT [facility] Eosinophils Relative 3.4 0.0 - 8.0 % 01/14/2019 8:37 AM EDT [facility] Basophils Relative 0.4 0.0 - 1.0 % 01/14/2019 8:37 AM EDT [facility] nRBC 0 0 - 0 /100 WBC 01/14/2019 8:37 AM EDT [facility] Neutrophils Absolute 1,533 1,500 - 7,800 /uL 01/14/2019 8:37 AM EDT [facility] Lymphocytes Absolute 1,044 850 - 3,900 /uL 01/14/2019 8:37 AM EDT [facility] Monocytes Absolute 309 200 - 950 /uL 01/14/2019 8:37 AM EDT [facility] Eosinophils Absolute 102 15 - 500 /uL 01/14/2019 8:37 AM EDT [facility] Basophils Absolute 12 0 - 200 /uL 01/14/2019 8:37 AM EDT [facility] Whole blood specimen (specimen) 01/14/2019 7:31 AM EDT 01/14/2019 8:16 AM EDT us Robb Hidalgo MD LAB BLOOD ORDERABLES Final Res ult [facility] [address] [facility]. [address] * (ABNORMAL) CBC (01/14/2019 7:31 AM EDT) WBC 3.0(L) 3.8 - 10.8 10E3/uL 01/14/2019 8:37 AM EDT [facility] RBC 3.19(L) 4.20 - 5.80 10E6/uL 01/14/2019 8:37 AM EDT [facility] Hemoglobin 9.1(L) 13.2 - 17.1 g/dL 01/14/2019 8:37 AM EDT [facility] Hematocrit 27.3(L) 38.5 - 50.0 % 01/14/2019 8:37 AM EDT [facility] MCV 85.5 80.0 - 100.0 fL 01/14/2019 8:37 AM EDT [facility] MCH 28.6 27.0 - 33.0 pg 01/14/2019 8:37 AM EDT [facility] MCHC 33.5 32.0 - 36.0 g/dL 01/14/2019 8:37 AM EDT [facility] RDW 14.9 11.0 - 15.0 % 01/14/2019 8:37 AM EDT [facility] Platelets 183 140 - 400 10E3/uL 01/14/2019 8:37 AM EDT [facility] MPV 7.3(L) 7.5 - 11.5 fL 01/14/2019 8:37 AM EDT [facility] Whole blood specimen (specimen) 01/14/2019 7:31 AM EDT 01/14/2019 8:16 AM EDT us Robb Hidalgo MD LAB BLOOD ORDERABLES Final Res ult [facility] [address] * (ABNORMAL) POC Glucose Monitoring Device (01/13/2019 10:10 PM EDT) POC Glucose Monitoring Device 107(H) 70 - 100 mg/dL 01/13/2019 10:11 PM EDT [facility] Blood specimen (specimen) 01/13/2019 10:10 PM EDT 01/13/2019 10:11 PM EDT us Malinda Rhodes MD POINT OF CARE TEST KIESHA CORONA Final Result [facility] [address] * (ABNORMAL) POC Glucose Monitoring Device (01/13/2019 7:12 PM EDT) POC Glucose Monitoring Device 133(H) 70 - 100 mg/dL 01/13/2019 7:16 PM EDT [facility] Blood specimen (specimen) 01/13/2019 7:12 PM EDT 01/13/2019 7:16 PM EDT Malinda Rhodes MD POINT OF CARE TEST ORDE CJ Final Result Performing Organization Address City/[facility]/ZIP Co de Phone Number [facility] [address] * (ABNORMAL) POC Glucose Monitoring Device (01/13/2019 1:55 PM EDT) POC Glucose Monitoring Device 112(H) 70 - 100 mg/dL 01/13/2019 2:08 PM EDT [facility] Blood specimen (specimen) 01/13/2019 1:55 PM EDT 01/13/2019 2:08 PM EDT us Malinda Rhodes MD POINT OF CARE TEST ORDE RABBERHANE Final Result Performing Organization Address City/[facility]/ZIP Co de Phone Number [facility] [address] * Miscellaneous Reference Test (01/13/2019 10:17 AM EDT) Performing Lab [facility] 03/01/2019 10:05 AM EDT [facility] RESULT See Scanned Report in EPIC Lab tab. 03/01/2019 10:05 AM EDT [facility] Test Name [id number] 03/01/2019 10:05 AM EDT [facility] Miscellaneous samples (specimen) 01/13/2019 10:17 AM EDT 03/01/2019 10:05 AM EDT Narrative [facility] - 03/01/2019 10:05 AM EDT phospholipase A 2 receptor antibodies ??by STEF Robb Hidalgo MD LAB BLOOD ORDERABLES Final Res ult Performing Organization Address [facility] Co de Phone Number [facility] [address] [facility]. [address] * Syphilis Monitoring (RPR w Titer) (01/13/2019 10:17 AM EDT) RPR Monitoring Screen Non-Reacti ve Non-Reacti ve 01/13/2019 1:38 PM EDT [facility] Comment:In patients without clinical evidence of syphilis, a diagnosis of syphilis is suggested unlikely. If there is a clinical suspicion of syphilis the CDC recommends repeat testing in 2-4 weeks. Serum specimen (specimen) 01/13/2019 10:17 AM EDT 01/13/2019 10:57 AM EDT Robb Hidalgo MD LAB BLOOD ORDERABLES Final Res ult Performing Organization Address [facility] Co de Phone Number [facility] [address] * Blood culture-Peripheral (01/13/2019 10:17 AM EDT) Pathologist [facility] Culture Result No Growth After 5 Days [facility] Blood specimen (specimen) BLOOD SPECIMEN / Unknown 01/13/2019 10:17 AM EDT 01/13/2019 11:29 AM EDT Robb Hidalgo MD MICROBIOLOGY - GENERAL ORDERAB LES Final Result Performing Organization Address [facility] Co de Phone Number [facility] [address] [facility]. [address] * EBV DNA, Qual,Real-Time PCR Blood (01/13/2019 10:17 AM EDT) EBV DNA, Ql PCR Not Detected Not Detected 01/14/2019 10:29 PM EDT [facility] Comment: This test is an amplified nucleic acid assay performed on a real time PCR platform that was developed using [employer]. Its performance characteristics were determined by [facility]. It has not been cleared or approved by the U.S. Food and Drug Administration (FDA). The FDA has determined that such clearance or approval is not necessary. This test is used for clinical purposes. It should not be regarded as investigational or for research. ??The results are not meant to be used as the sole means for clinical diagnosis or patient management. [facility] is certified under the Clinical Laboratory Improvement Amendment of 1988 (CLIA- 88) as qualified to perform high complexity clinical laboratory testing. The Limit of Detection (LoD) of this assay has been determined to be 1000 IU/mL. Whole blood specimen (specimen) 01/13/2019 10:17 AM EDT 01/13/2019 11:29 AM EDT us Robb Hidalgo MD LAB BLOOD ORDERABLES Final Res ult Performing Organization Address City/State/[facility] Co de Phone Number [facility] [address] * Glomerular Basement Membrane Antibodies (01/13/2019 10:17 AM EDT) GBM Ab 3 0 - 20 units 01/16/2019 10:02 AM EDT [facility] Comment: ? Negative ? 0 - 20 ? Weak Positive ? 21 - 30 ? Moderate to Strong Positive ?? >30 Serum specimen (specimen) 01/13/2019 10:17 AM EDT 01/16/2019 11:27 AM EDT Narrative [facility] - 01/16/2019 11:27 AM EDT PERFORMED AT: [address] [id number] ADDICTION TREATMENT COUNSELOR: Jeny Pereyra MD ?? PHONE: [phone] Robb Hidalgo MD LAB BLOOD ORDERABLES Final Res ult [facility] [address] [facility]. [address] * Rheumatoid Factor (01/13/2019 10:17 AM EDT) Rheumatoid Factor <10.0 0.0 - 14.0 IU/mL 01/13/2019 11:24 AM EDT [facility] Plasma specimen (specimen) 01/13/2019 10:17 AM EDT 01/13/2019 10:57 AM EDT Robb Hidalgo MD LAB BLOOD ORDERABLES Final Res ult Performing Organization Address [facility] Co de Phone Number [facility] [address] [facility]. [address] * HIV 1+2 Antibody/Antigen with Reflex (01/13/2019 10:17 AM EDT) Pathologist [facility] HIV 1+2 AB/AGN Nonreactive Nonreactive 01/13/2019 11:40 AM EDT [facility] Serum specimen (specimen) 01/13/2019 10:17 AM EDT 01/13/2019 10:57 AM EDT Narrative [facility] - 01/13/2019 11:40 AM EDT HIV-1 p24 Antigen and HIV-1/HIV-2 Antibody not detected. Robb Hidalgo MD LAB BLOOD ORDERABLES Final Res ult Performing Organization Address City/[facility] Co de Phone Number [facility] [address] [facility]. [address] * (ABNORMAL) Tacrolimus level (01/13/2019 10:17 AM EDT) Pathologist [facility] Tacrolimus Lvl 2.0(L) 5.0 - 20.0 ng/mL 01/13/2019 12:58 PM EDT [facility] Comment: Detection limit: ??2 ng/mL. ??Performed via chemiluminescent microparticle immunoassay on the [employer] It Field [employer]ician i1000. Whole blood specimen (specimen) 01/13/2019 10:17 AM EDT 01/13/2019 10:59 AM EDT us Ijeoma Brooke MD LAB BLOOD ORDERABLES Fi nal Result Performing Organization Address [facility] Co de Phone Number [facility] [address] * (ABNORMAL) POC Glucose Monitoring Device (01/13/2019 9:24 AM EDT) Pathologist [facility] POC Glucose Monitoring Device 108(H) 70 - 100 mg/dL 01/13/2019 9:24 AM EDT [facility] Blood specimen (specimen) 01/13/2019 9:24 AM EDT 01/13/2019 9:24 AM EDT us Malinda Rhodes MD POINT OF CARE TEST KIESHA CJ Final Result Performing Organization Address [facility] de Phone Number [facility] [address] * (ABNORMAL) Renal Function Panel w/EGFR (01/13/2019 6:10 AM EDT) Pathologist [facility] Sodium 141 133 - 146 mmol/L 01/13/2019 6:46 AM EDT [facility] Potassium 5.1 3.5 - 5.3 mmol/L 01/13/2019 6:46 AM EDT [facility] Chloride 109 98 - 110 mmol/L 01/13/2019 6:46 AM EDT [facility] CO2 24 21 - 33 mmol/L 01/13/2019 6:46 AM EDT [facility] Anion Gap 8 3 - 16 mmol/L 01/13/2019 6:46 AM EDT [facility] BUN 30(H) 7 - 25 mg/dL 01/13/2019 6:46 AM EDT [facility] Creatinine 3.22(H) 0.60 - 1.30 mg/dL 01/13/2019 6:46 AM EDT [facility] Glucose 147(H) 70 - 100 mg/dL 01/13/2019 6:46 AM EDT [facility] Calcium 7.8(L) 8.6 - 10.3 mg/dL 01/13/2019 6:46 AM EDT [facility] Phosphorus 4.5 2.1 - 4.7 mg/dL 01/13/2019 6:46 AM EDT [facility] Albumin 2.8(L) 3.5 - 5.7 g/dL 01/13/2019 6:46 AM EDT [facility] Osmolality, Calculated 301 278 - 305 mOsm/kg 01/13/2019 6:46 AM EDT [facility] eGFR AA CKD-EPI 26 See note. 9 6:46 AM EDT [facility] [...] equation to estimate glomerular filtration rate. ??Jennifer Director Of Product Development Med. 2009:150(9):604-12 eGFR NONAA CKD-EPI 22 See note. 2018 6:46 AM EDT [facility] [...] equation to estimate glomerular filtration rate. ??Jennifer Director Of Product Development Med. 2009:150(9):604-12 Plasma specimen (specimen) 01/13/2019 6:10 AM EDT 01/13/2019 6:17 AM EDT us Lonnie Virgen MD LAB BLOOD ORDERABLES F inal Result [facility] [address] [facility]. [address] * (ABNORMAL) CBC, AM (01/13/2019 6:10 AM EDT) WBC 2.9(L) 3.8 - 10.8 10E3/uL 01/13/2019 6:38 AM EDT [facility] RBC 3.25(L) 4.20 - 5.80 10E6/uL 01/13/2019 6:38 AM EDT [facility] Hemoglobin 9.3(L) 13.2 - 17.1 g/dL 01/13/2019 6:38 AM EDT [facility] Hematocrit 27.9(L) 38.5 - 50.0 % 01/13/2019 6:38 AM EDT [facility] MCV 85.8 80.0 - 100.0 fL 01/13/2019 6:38 AM EDT [facility] MCH 28.5 27.0 - 33.0 pg 01/13/2019 6:38 AM EDT [facility] MCHC 33.2 32.0 - 36.0 g/dL 01/13/2019 6:38 AM EDT [facility] RDW 14.4 11.0 - 15.0 % 01/13/2019 6:38 AM EDT [facility] Platelets 193 140 - 400 10E3/uL 01/13/2019 6:38 AM EDT [facility] MPV 6.9(L) 7.5 - 11.5 fL 01/13/2019 6:38 AM EDT [facility] Whole blood specimen (specimen) 01/13/2019 6:10 AM EDT 01/13/2019 6:31 AM EDT us Lonnie Virgen MD LAB BLOOD ORDERABLES F inal Result [facility] [address] * ANCA Panel (01/13/2019 6:10 AM EDT) ANCA Myeloperoxidase AB <9.0 0.0 - 9.0 U/mL 01/15/2019 12:52 PM EDT [facility] ANCA Proteinase 3 <3.5 0.0 - 3.5 U/mL 01/15/2019 12:52 PM EDT [facility] C-ANCA <1:20 Neg:<1:20 titer 01/14/2019 3:27 PM EDT [facility] Comment:Serum is slightly li pemic. Perinuclear (P-ANCA) Titer <1:20 Neg:<1:20 titer 01/14/2019 3:27 PM EDT [facility] Comment: Serum is slightly lipemic. The presence of positive fluorescence exhibiting P-ANCA or C-ANCA patterns alone is not specific for the diagnosis of Ed's Granulomatosis (WG) or microscopic polyangiitis. Decisions about treatment should not be based solely on ANCA IFA results. ??The International ANCA [employer] Consensus recommends follow up testing of positive sera with both NV-3 and MPO-ANCA enzyme immunoassays. As many as 5% serum samples are positive only by EIA. Ref. AM J Clin Pathol 1999;111:507-513. Atypical Panca Titer <1:20 Neg:<1:20 titer 01/14/2019 3:27 PM EDT [facility] Comment: Serum is slightly lipemic. The atypical pANCA pattern has been observed in a significant percentage of patients with ulcerative colitis, primary sclerosing cholangitis and autoimmune hepatitis. Serum specimen (specimen) 01/13/2019 6:10 AM EDT 01/15/2019 1:05 PM EDT Narrative [facility] - 01/15/2019 1:05 PM EDT PERFORMED AT: [facility] [address] [id number] ADDICTION TREATMENT COUNSELOR: Jeny Pereyra MD ?? PHONE: [phone] PERFORMED AT: [facility] [place] [address] [place] [id number] ADDICTION TREATMENT COUNSELOR: Octavio Best, PhD ?? PHONE: [phone] Hilton Whiting DO LAB BLOOD ORDERABLES F inal Result [facility] [address] [facility]. [address] * LAB (01/13/2019 12:00 AM EDT) Luis [facility] NURSING INFORMATIONAL/COMMUNICAT ION ORDERABLES Final Result * (ABNORMAL) POC Glucose Monitoring Device (01/12/2019 9:43 PM EDT) POC Glucose Monitoring Device 218(H) 70 - 100 mg/dL 01/12/2019 9:52 PM EDT [facility] Blood specimen (specimen) 01/12/2019 9:43 PM EDT 01/12/2019 9:52 PM EDT Malinda Rhodes MD POINT OF CARE TEST ORDPravin CORONA Final Result [facility] [address] [place] [address]. [address] * (ABNORMAL) POC Glucose Monitoring Device (01/12/2019 6:33 PM EDT) POC Glucose Monitoring Device 203(H) 70 - 100 mg/dL 01/12/2019 6:34 PM EDT [facility] Blood specimen (specimen) 01/12/2019 6:33 PM EDT 01/12/2019 6:33 PM EDT Result [facility] Malinda Rhodes MD POINT OF CARE TEST KIESHA CORONA Final Result Performing Organization Address City/[facility]/ZIP Co de Phone Number [facility] [address] [place] [address]. [address] * (ABNORMAL) POC Glucose Monitoring Device (01/12/2019 1:53 PM EDT) POC Glucose Monitoring Device 144(H) 70 - 100 mg/dL 01/12/2019 1:54 PM EDT [facility] Blood specimen (specimen) 01/12/2019 1:53 PM EDT 01/12/2019 1:54 PM EDT Malinda Rhodes MD POINT OF CARE TEST KIESHA CORONA Final Result [facility] [address] 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 Liver duplex: Normal directional flow with resistive indices as detailed above. Approved by Onelia Castillo DO on 01/12/2019 1:40 PM EDT I have personally reviewed the images and I agree with this report. Report Verified by: Earnest Malik MD at 01/12/2019 1:54 PM EDT Narrative 01/12/2019 1:54 PM EDT EXAM: US ABDOMEN COMPLETE, US DUPLEX [id number] COMPLETE DATE: 01/12/2019 12:51 PM EDT INDICATION: Liver transplant/acute kidney injury. COMPARISON: Multiple priors, most recent dated 10/31/2017. TECHNIQUE: Grayscale imaging was performed for evaluation of the liver, gallbladder, common bile duct, pancreas, spleen, and kidneys; with limited grayscale and color Doppler evaluation of the upper abdominal aorta and inferior vena cava. Color and spectral (duplex) Doppler analysis of the hepatic vasculature was also performed. FINDINGS: Exam is limited by poor acoustic windows. The liver is normal in echogenicity and homogeneous in echotexture. There are no apparent focal hepatic masses. There is no evidence of intrahepatic biliary ductal dilation. The common bile duct is normal in caliber measuring approximately 5 mm. Gallbladder surgically absent. No free fluid is seen in the abdomen. Pancreas: could not be visualized due to overlying bowel gas. The kidneys demonstrate normal size and echogenicity. There is no hydronephrosis. The right kidney measures 9.3 x 5.4 x 6.5 cm in size. The left kidney measures 12.2 x 5.6 x 4.9 cm in size. The spleen is not enlarged. The visualized portions of the aorta and IVC are normal in caliber and demonstrate internal flow. Duplex evaluation of the hepatic vasculature demonstrates normal flow in the right, middle and left hepatic veins. The right, left and main portal vein demonstrate hepatopetal flow. Right, main and left hepatic arteries demonstrate normal wave forms. The resistive indices in the main hepatic artery is 0.66-0.72, the right hepatic artery is 0.75, and the left hepatic artery is 0.75. Procedure Note Earnest Malik MD - 01/12/2019 EXAM: US ABDOMEN COMPLETE, US DUPLEX [id number] COMPLETE DATE: 01/12/2019 12:51 PM EDT INDICATION: Liver transplant/acute kidney injury. COMPARISON: Multiple priors, most recent dated 10/31/2017. TECHNIQUE: Grayscale imaging was performed for evaluation of the liver,gallbladder, common bile duct, pancreas, spleen, and kidneys; with limitedgrayscale and color Doppler evaluation of the upper abdominal aorta andinferior vena cava. Color and spectral (duplex) Doppler analysis of thehepatic vasculature was also performed. FINDINGS: Exam is limited by poor acoustic windows. The liver is normal in echogenicity and homogeneous in echotexture. Thereare no apparent focal hepatic masses. There is no evidence of intrahepaticbiliary ductal dilation. The common bile duct is normal in calibermeasuring approximately 5 mm. Gallbladder surgically absent. No free fluidis seen in the abdomen. Pancreas: could not be visualized due to overlying bowel gas. The kidneys demonstrate normal size and echogenicity. There is nohydronephrosis. The right kidney measures 9.3 x 5.4 x 6.5 cm in size. Theleft kidney measures 12.2 x 5.6 x 4.9 cm in size. The spleen is not enlarged. The visualized portions of the aorta and IVC are normal in caliber anddemonstrate internal flow. Duplex evaluation of the hepatic vasculature demonstrates normal flow inthe right, middle and left hepatic veins. The right, left and main portalvein demonstrate hepatopetal flow. Right, main and left hepatic arteries demonstrate normal wave forms. Theresistive indices in the main hepatic artery is 0.66-0.72, the righthepatic artery is 0.75, and the left hepatic artery is 0.75. IMPRESSION: Abdomen: Normal sonographic appearance of the transplant liver. Liver duplex: Normal directional flow with resistive indices as detailed above. Approved by Onelia Castillo DO on 01/12/2019 1:40 PM EDT I have personally reviewed the images and I agree with this report. Report Verified by: Earnest Malik MD at 01/12/2019 1:54 PM EDT Hilton Whiting IMG US ORDERABLES Yoselin l Result * US Duplex Lia-[id number] Comp (01/12/2019 1:22 PM EDT) Anatomical Region Laterality Modality Abdomen, Pelvis, Testes, Vascular Ultrasound 01/12/2019 12:5 1 PM EDT Impressions 01/12/2019 1:54 PM EDT IMPRESSION: Abdomen: Normal sonographic appearance of the transplant liver. Liver duplex: Normal directional flow with resistive indices as detailed above. Approved by Onelia Castillo DO on 01/12/2019 1:40 PM EDT I have personally reviewed the images and I agree with this report. Report Verified by: Earnest Malik MD at 01/12/2019 1:54 PM EDT Narrative 01/12/2019 1:54 PM EDT EXAM: US ABDOMEN COMPLETE, US DUPLEX [id number] COMPLETE DATE: 01/12/2019 12:51 PM EDT INDICATION: Liver transplant/acute kidney injury. COMPARISON: Multiple priors, most recent dated 10/31/2017. TECHNIQUE: Grayscale imaging was performed for evaluation of the liver, gallbladder, common bile duct, pancreas, spleen, and kidneys; with limited grayscale and color Doppler evaluation of the upper abdominal aorta and inferior vena cava. Color and spectral (duplex) Doppler analysis of the hepatic vasculature was also performed. FINDINGS: Exam is limited by poor acoustic windows. The liver is normal in echogenicity and homogeneous in echotexture. There are no apparent focal hepatic masses. There is no evidence of intrahepatic biliary ductal dilation. The common bile duct is normal in caliber measuring approximately 5 mm. Gallbladder surgically absent. No free fluid is seen in the abdomen. Pancreas: could not be visualized due to overlying bowel gas. The kidneys demonstrate normal size and echogenicity. There is no hydronephrosis. The right kidney measures 9.3 x 5.4 x 6.5 cm in size. The left kidney measures 12.2 x 5.6 x 4.9 cm in size. The spleen is not enlarged. The visualized portions of the aorta and IVC are normal in caliber and demonstrate internal flow. Duplex evaluation of the hepatic vasculature demonstrates normal flow in the right, middle and left hepatic veins. The right, left and main portal vein demonstrate hepatopetal flow. Right, main and left hepatic arteries demonstrate normal wave forms. The resistive indices in the main hepatic artery is 0.66-0.72, the right hepatic artery is 0.75, and the left hepatic artery is 0.75. Procedure Note Earnest Malik MD - 01/12/2019 EXAM: US ABDOMEN COMPLETE, US DUPLEX [id number] COMPLETE DATE: 01/12/2019 12:51 PM EDT INDICATION: Liver transplant/acute kidney injury. COMPARISON: Multiple priors, most recent dated 10/31/2017. TECHNIQUE: Grayscale imaging was performed for evaluation of the liver,gallbladder, common bile duct, pancreas, spleen, and kidneys; with limitedgrayscale and color Doppler evaluation of the upper abdominal aorta andinferior vena cava. Color and spectral (duplex) Doppler analysis of thehepatic vasculature was also performed. FINDINGS: Exam is limited by poor acoustic windows. The liver is normal in echogenicity and homogeneous in echotexture. Thereare no apparent focal hepatic masses. There is no evidence of intrahepaticbiliary ductal dilation. The common bile duct is normal in calibermeasuring approximately 5 mm. Gallbladder surgically absent. No free fluidis seen in the abdomen. Pancreas: could not be visualized due to overlying bowel gas. The kidneys demonstrate normal size and echogenicity. There is nohydronephrosis. The right kidney measures 9.3 x 5.4 x 6.5 cm in size. Theleft kidney measures 12.2 x 5.6 x 4.9 cm in size. The spleen is not enlarged. The visualized portions of the aorta and IVC are normal in caliber anddemonstrate internal flow. Duplex evaluation of the hepatic vasculature demonstrates normal flow inthe right, middle and left hepatic veins. The right, left and main portalvein demonstrate hepatopetal flow. Right, main and left hepatic arteries demonstrate normal wave forms. Theresistive indices in the main hepatic artery is 0.66-0.72, the righthepatic artery is 0.75, and the left hepatic artery is 0.75. IMPRESSION: Abdomen: Normal sonographic appearance of the transplant liver. Liver duplex: Normal directional flow with resistive indices as detailed above. Approved by Onelia Castillo DO on 01/12/2019 1:40 PM EDT I have personally reviewed the images and I agree with this report. Report Verified by: Earnest Malik MD at 01/12/2019 1:54 PM EDT Hilton Whiting DO IMG US ORDERABLES Yoselin l Result * (ABNORMAL) POC Glucose Monitoring Device (01/12/2019 9:19 AM EDT) POC Glucose Monitoring Device 152(H) 70 - 100 mg/dL 01/12/2019 9:19 AM EDT [facility] Blood specimen (specimen) 01/12/2019 9:19 AM EDT 01/12/2019 9:19 AM EDT Malinda Rhodes MD POINT OF CARE TEST CAROLEPravin CORONA Final Result Performing Organization Address City/[facility]/ZIP Co de Phone Number [facility] [address] * C4 complement (01/12/2019 4:18 AM EDT) C4 Complement 39 19 - 52 mg/dL 01/12/2019 4:58 AM EDT [facility] Serum specimen (specimen) 01/12/2019 4:18 AM EDT 01/12/2019 4:34 AM EDT us Ijeoma Brooke MD LAB BLOOD ORDERABLES Fi nal Result [facility] [address] * C3 complement (01/12/2019 4:18 AM EDT) C3 Complement 133 87 - 200 mg/dL 01/12/2019 4:58 AM EDT [facility] Serum specimen (specimen) 01/12/2019 4:18 AM EDT 01/12/2019 4:34 AM EDT us Ijeoma Brooke MD LAB BLOOD ORDERABLES Fi nal Result [facility] [address] [facility]. [place] [id number], [facility] * (ABNORMAL) Serum Prot Electrophoresis w/Free Lt Chains, Reflex to IT (01/12/2019 4:18 AM EDT) IgG 529.0(L) 751.0 - 1,560.0 mg/dL 01/21/2019 1:23 PM EDT [facility] IgM 64.2 46.0 - 304.0 mg/dL 01/21/2019 1:23 PM EDT [facility] Albumin, Protein Electrophoresis 2.6(L) 3.70 - 4.90 g/dL 01/21/2019 1:23 PM EDT [facility] IgA 251.0 82.0 - 453.0 mg/dL 01/21/2019 1:23 PM EDT [facility] Alpha 1 0.5(H) 0.20 - 0.40 g/dL 01/21/2019 1:23 PM EDT [facility] Alpha 2 0.8 0.50 - 1.00 g/dL 01/21/2019 1:23 PM EDT [facility] Beta 0.7 0.60 - 1.00 g/dL 01/21/2019 1:23 PM EDT [facility] Gamma Globulin 0.5 0.50 - 1.50 g/dL 01/21/2019 1:23 PM EDT [facility] [place] 56.5(H) 3.3 - 19.4 mg/L 01/21/2019 1:23 PM EDT [facility] Lambda 49.7(H) 5.7 - 26.3 mg/L 01/21/2019 1:23 PM EDT [facility] Total Protein (PE) 5.1(L) 6.4 - 8.9 g/dL 01/14/2019 7:23 AM EDT [facility] M Corey SEE NOTE g/dL 01/21/2019 1:23 PM EDT [facility] Comment:SEE INTERP [place]/Lambda Ratio 1.14 0.26 - 1.65 ratio 01/21/2019 1:23 PM EDT [facility] Interpretation (PE) See Note 01/21 1:23 PM EDT [facility] Comment: A faint band of restriction is noted on gel electrophoresis too small for quantification. ??If clinically indictated, consider repeat testing in 6-12 months. Hypoalbuminemia. Liver disease, malnutrition, protein loss (urine, GI tracts, salazar, neoplasia). Reviewed by Dr. Joan Fung DO. Confirmed on gel. Serum specimen (specimen) 01/12/2019 4:18 AM EDT 01/12/2019 4:34 AM EDT Ijeoma Brooke MD LAB BLOOD ORDERABLES Fi nal Result [facility] [address] [place] [address], [facility] * (ABNORMAL) TERESA (IFA) with Titer (01/12/2019 4:18 AM EDT) TERESA Titer by IFA Positive(A) 01/14/2019 3:08 PM EDT [facility] Comment: ? Negative ?? <1:80 ? Borderline ??1:80 ? Positive ?? >1:80 Serum is slightly lipemic. Speckled Pattern 1:160(H) 01/14/2019 3:51 PM EDT [facility] Comment:No previous value wa s reported. A value of 1:160 was entered by IF on 01/14/2019 16:06 Please Note Comment 01/14/2019 3:08 PM EDT [facility] Comment: A positive TERESA result may occur in healthy individuals (low titer) or be associated with a variety of diseases. ??See interpretation chart which is not all inclusive: Pattern ?Antigen Detected ??Suggested Disease Association ? Homogeneous ??DNA(ds,ss), ? SLE - High titers ? Nucleosomes, ? Histones ?Drug-induced SLE ? Speckled ? Sm, EXPANDER MACHINE OPERATOR, SCL-70, ??SLE,MCTD,PSS (diffuse form), ? SS-A/SS-B ? Sjogrens ? Nucleolar ?SCL-70, PM-1/SCL ??High titers Scleroderma, ? PM/DM ? Centromere ?? Centromere ?PSS (limited form) w/Crest ? syndrome variable ? Nuclear Dot ??[id number] ??Primary Biliary Cirrhosis ? Nuclear ?GP210, ?Primary Biliary Cirrhosis Membrane ? annika A,B,C ? No previous value was reported. A value of Comment was entered by IF on 01/14/2019 16:06 Spindle Apparatus Pattern 1:80 01/14/2019 3:51 PM EDT [facility] Comment:No previous value wa s reported. A value of 1:80 was entered by IF on 01/14/2019 16:06 Serum specimen (specimen) 01/12/2019 4:18 AM EDT 01/14/2019 4:06 PM EDT Narrative [facility] - 01/14/2019 4:06 PM EDT PERFORMED AT: [facility] [id number] ADDICTION TREATMENT COUNSELOR: Octavio Best, PhD ?? PHONE: [phone] us Ijeoma Brooke MD LAB BLOOD ORDERABLES Fi nal Result [facility] [address] [place] [address], [facility] * Cryoglobulin (01/12/2019 4:18 AM EDT) Cryoglobulin Comment None detected 01/17/2019 10:19 AM EDT [facility] Comment: None Detected at 72 hours This test was developed and its performance characteristics determined by [facility]. It has not been cleared or approved by the Food and Drug Administration. Serum specimen (specimen) 01/12/2019 4:18 AM EDT 01/17/2019 11:26 AM EDT Narrative [facility] - 01/17/2019 11:26 AM EDT PERFORMED AT: [facility] [id number] ADDICTION TREATMENT COUNSELOR: Octavio Best, PhD ?? PHONE: [phone] Ijeoma Brooke MD LAB BLOOD ORDERABLES Fi nal Result Performing Organization Address City/[facility]/ZIP Co de Phone Number [facility] [address] [place] [address] * Chloride, urine, random (01/12/2019 2:33 AM EDT) Chloride, Ur 83 mmol/L 01/12/2019 3:19 AM EDT [facility] Comment:Reference range not established for this test. Urine specimen (specimen) 01/12/2019 2:33 AM EDT 01/12/2019 2:37 AM EDT Ijeoma Brooke MD URINE ORDERABLES Final Result Performing Organization Address City/[facility] Co de Phone Number [facility] [address] * (ABNORMAL) Urinalysis, Microscopic (01/12/2019 2:33 AM EDT) RBC, UA 5(H) 0 - 3 /HPF 01/12/2019 2:55 AM EDT [facility] WBC, UA 2 0 - 5 /HPF 01/12/2019 2:55 AM EDT [facility] Squam Epithel, UA 1 0 - 5 /HPF 01/12/2019 2:55 AM EDT [facility] Bacteria, UA Rare(A) None Seen /HPF 01/12/2019 2:55 AM EDT [facility] Hyaline Casts, UA 3(H) 0 - 2 /LPF 01/12/2019 2:55 AM EDT [facility] Mucus, UA Present(A) None Seen /HPF 01/12/2019 2:55 AM EDT [facility] Urine specimen (specimen) 01/12/2019 2:33 AM EDT 01/12/2019 2:37 AM EDT us Kylee Kasper MD URINE ORDERABLES Final Result Performing Organization Address City/[facility]/ZIP Co de Phone Number [facility] [address] * Protein, Urine, Random (01/12/2019 2:33 AM EDT) Total Protein, Ur >1000 mg/dL 01/12/2019 3:19 AM EDT [facility] Comment:Reference range not established for this test. Urine specimen (specimen) 01/12/2019 2:33 AM EDT 01/12/2019 2:50 AM EDT us Ijeoma Brooke MD URINE ORDERABLES Final Result Performing Organization Address [facility] Co de Phone Number [facility] [address] [facility]. [address] * Creatinine, Urine, Random (01/12/2019 2:33 AM EDT) Creatinine, Urine 96.10 mg/dL 01/12/2019 3:19 AM EDT [facility] Comment:Reference range not established for this test. Urine specimen (specimen) 01/12/2019 2:33 AM EDT 01/12/2019 2:50 AM EDT us Ijeoma Brooke MD URINE ORDERABLES Final Result Performing Organization Address City/[facility] Co de Phone Number [facility] [address] * Potassium, Urine, Random (01/12/2019 2:33 AM EDT) Potassium Urine Random 35.2 mmol/L 01/12/2019 3:19 AM EDT [facility] Comment:Reference range not established for this test. Urine specimen (specimen) 01/12/2019 2:33 AM EDT 01/12/2019 2:50 AM EDT Ijeoma Brooke MD URINE ORDERABLES Final Result Performing Organization Address [facility] Co de Phone Number [facility] [address] [place] [address] * Sodium, urine, random (01/12/2019 2:33 AM EDT) Sodium, Ur 82 mmol/L 01/12/2019 3:19 AM EDT [facility] Comment:Reference range not established for this test. Urine specimen (specimen) 01/12/2019 2:33 AM EDT 01/12/2019 2:37 AM EDT us Ijeoma Brooke MD URINE ORDERABLES Final Result Performing Organization Address [facility] de Phone Number [facility] [address] [place] [address] * (ABNORMAL) Urinalysis-Macroscopic w/Rfx to Microsco (01/12/2019 2:33 AM EDT) Color, UA Yellow Yellow,Straw 01/12/2019 2:38 AM EDT [facility] Clarity, UA Clear Clear 01/12/2019 2:38 AM EDT [facility] Specific [place], UA 1.025 1.005 - 1.035 01/12/2019 2:38 AM EDT [facility] pH, UA 6.0 5.0 - 8.0 01/12/2019 2:38 AM EDT [facility] Protein, UA >=300 mg/dL(A) Negative mg/dL 01/12/2019 2:38 AM EDT [facility] Glucose, UA 100 mg/dL(A) Negative mg/dL 01/12/2019 2:38 AM EDT [facility] Ketones, UA Negative Negative mg/dL 01/12/2019 2:38 AM EDT [facility] Bilirubin, UA Negative Negative 01/12/2019 2:38 AM EDT [facility] Blood, UA Moderate(A) Negative 01/12/2019 2:38 AM EDT [facility] Nitrite, UA Negative Negative 01/12/2019 2:38 AM EDT [facility] Urobilinogen, UA 0.2 E.U./dL 0.2 - 1.0 EU/dL 01/12/2019 2:38 AM EDT [facility] Leukocyte Esterase, UA Negative Negative 01/12/2019 2:38 AM EDT [facility] Urine specimen (specimen) 01/12/2019 2:33 AM EDT 01/12/2019 2:35 AM EDT Kylee Kasper MD URINE ORDERABLES Final Result Performing Organization Address City/[facility]/ZIP Co de Phone Number [facility] [address] [facility]. [address] * Antibody identification (01/12/2019 2:14 AM EDT) Antibody Id. #1 Anti-C 01/12/2019 2:14 AM EDT [facility] Antibody Id. #2 Anti-D 01/12/2019 2:14 AM EDT [facility] Blood specimen (specimen) 01/12/2019 2:14 AM EDT 01/12/2019 2:14 AM EDT Triage Protocol Emergency MD BLOOD BANK TEST ORD ERABLES Final Result [facility] [address] [facility]. [address] * ELIUD Anti-IgG (01/12/2019 12:59 AM EDT) EILUD IgG Negative 01/12/2019 12:59 AM EDT [facility] Blood specimen (specimen) 01/12/2019 12:59 AM EDT 01/12/2019 12:59 AM EDT Triage Protocol Emergency MD BLOOD BANK TEST ORD ERABLES Final Result [facility] [address] [place] [address], [facility] * X-ray Chest PA and Lateral (01/12/2019 12:44 AM EDT) Anatomical Region Laterality Modality Chest Radiographic Sobia ging 01/12/2019 12:4 3 AM EDT Impressions 01/12/2019 2:12 AM EDT IMPRESSION: No acute cardiopulmonary abnormality. Approved by Leeroy Jo MD on 01/12/2019 1:26 AM EDT I have personally reviewed the images and I agree with this report. Report Verified by: Tray Villalobos MD at 01/12/2019 2:12 AM EDT Narrative 01/12/2019 2:12 AM EDT Exam: XR CHEST PA AND LATERAL Date: 01/12/2019 12:43 AM EDT CLINICAL HISTORY: Shortness of breath, TECHNIQUE: PA and Lateral views of the chest. COMPARISON: 04/26/2018 FINDINGS: Medical Devices: None. Heart and Mediastinum: Cardiomediastinal silhouette is within normal limits. Lungs and Pleura: Lungs are clear with no focal consolidations, pleural effusions or evidence for pneumothorax. Bones: No acute osseous abnormalities. Procedure Note Tray Villalobos MD - 01/12/2019 Exam: XR CHEST PA AND LATERAL Date: 01/12/2019 12:43 AM EDT CLINICAL HISTORY: Shortness of breath, TECHNIQUE: PA and Lateral views of the chest. COMPARISON: 04/26/2018 FINDINGS: Medical Devices: None. Heart and Mediastinum: Cardiomediastinal silhouette is within normallimits. Lungs and Pleura: Lungs are clear with no focal consolidations, pleuraleffusions or evidence for pneumothorax. Bones: No acute osseous abnormalities. IMPRESSION: No acute cardiopulmonary abnormality. Approved by Leeroy Jo MD on 01/12/2019 1:26 AM EDT I have personally reviewed the images and I agree with this report. Report Verified by: Tray Villalobos MD at 01/12/2019 2:12 AM EDT Renato Foy MD IMG DIAGNOSTIC IMAGING ORDERAB LES Final Result * Antibody Screen (01/11/2019 9:31 PM EDT) Antibody Screen Positive 01/11/2019 10:42 PM EDT [facility] Blood specimen (specimen) 01/11/2019 9:31 PM EDT 01/11/2019 9:51 PM EDT Narrative [facility] - 01/11/2019 10:53 PM EDT Testing performed by [facility] Transfusion Service Renato Foy MD BLOOD BANK TEST ORDERABLES Fin al Result [facility] [address] [facility] * ABO/Rh (01/11/2019 9:31 PM EDT) ABO Grouping O 01/11/2019 10:26 PM EDT [facility] Rh Type Negative 01/11/2019 10:26 PM EDT [facility] Blood specimen (specimen) 01/11/2019 9:31 PM EDT 01/11/2019 9:51 PM EDT Renato Foy MD BLOOD BANK TEST ORDERABLES Fin al Result [facility] [address] [facility]. [address] * (ABNORMAL) Hepatic Function Panel (01/11/2019 9:31 PM EDT) Total Bilirubin 0.2 0.0 - 1.5 mg/dL 01/11/2019 9:55 PM EDT [facility] Bilirubin, Direct 0.0 0.0 - 0.4 mg/dL 01/11/2019 9:55 PM EDT [facility] AST 13 13 - 39 U/L 01/11/2019 9:55 PM EDT [facility] ALT 11 7 - 52 U/L 01/11/2019 9:55 PM EDT [facility] Alkaline Phosphatase 139(H) 36 - 125 U/L 01/11/2019 9:55 PM EDT [facility] Total Protein 5.7(L) 6.4 - 8.9 g/dL 01/11/2019 9:55 PM EDT [facility] Albumin 3.1(L) 3.5 - 5.7 g/dL 01/11/2019 9:55 PM EDT [facility] Bilirubin, Indirect 0.2 0.0 - 1.1 mg/dL 01/11/2019 9:55 PM EDT [facility] Plasma specimen (specimen) 01/11/2019 9:31 PM EDT 01/11/2019 9:38 PM EDT us Renato Foy MD LAB BLOOD ORDERABLES Final Res ult [facility] [address] * (ABNORMAL) Basic metabolic panel (01/11/2019 9:31 PM EDT) Sodium 140 133 - 146 mmol/L 01/11/2019 9:55 PM EDT [facility] Potassium 5.3 3.5 - 5.3 mmol/L 01/11/2019 9:55 PM EDT [facility] Chloride 109 98 - 110 mmol/L 01/11/2019 9:55 PM EDT [facility] CO2 25 21 - 33 mmol/L 01/11/2019 9:55 PM EDT [facility] Anion Gap 6 3 - 16 mmol/L 01/11/2019 9:55 PM EDT [facility] BUN 31(H) 7 - 25 mg/dL 01/11/2019 9:55 PM EDT [facility] Creatinine 3.17(H) 0.60 - 1.30 mg/dL 01/11/2019 9:55 PM EDT [facility] Glucose 153(H) 70 - 100 mg/dL 01/11/2019 9:55 PM EDT [facility] Calcium 7.9(L) 8.6 - 10.3 mg/dL 01/11/2019 9:55 PM EDT [facility] Osmolality, Calculated 300 278 - 305 mOsm/kg 01/11/2019 9:55 PM EDT [facility] eGFR AA CKD-EPI 26 See note. 9 9:55 PM EDT [facility] [...] equation to estimate glomerular filtration rate. ??Jennifer Director Of Product Development Med. 2009:150(9):604-12 eGFR NONAA CKD-EPI 23 See note. 2018 9:55 PM EDT [facility] [...] equation to estimate glomerular filtration rate. ??Jennifer Director Of Product Development Med. 2009:150(9):604-12 Plasma specimen (specimen) 01/11/2019 9:31 PM EDT 01/11/2019 9:38 PM EDT us Renato Foy MD LAB BLOOD ORDERABLES Final Res ult [facility] [address] [place], [place] [address] * (ABNORMAL) Differential (01/11/2019 9:31 PM EDT) Myelocytes Relative 4.0(H) 0.0 - 0.0 % 01/11/2019 10:59 PM EDT [facility] Neutrophils Relative 59.6 40.0 - 80.0 % 01/11/2019 10:59 PM EDT [facility] Lymphocytes Relative 29.3 15.0 - 45.0 % 01/11/2019 10:59 PM EDT [facility] Monocytes Relative 3.0 0.0 - 12.0 % 01/11/2019 10:59 PM EDT [facility] Eosinophils Relative 4.1 0.0 - 8.0 % 01/11/2019 10:59 PM EDT [facility] Basophils Relative 0.0 0.0 - 1.0 % 01/11/2019 10:59 PM EDT [facility] Neutrophils Absolute 2,324 1,500 - 7,800 /uL 01/11/2019 10:59 PM EDT [facility] Myelocytes Absolute 156(H) 0 - 0 /uL 01/11/2019 10:59 PM EDT [facility] Lymphocytes Absolute 1,143 850 - 3,900 /uL 01/11/2019 10:59 PM EDT [facility] Monocytes Absolute 117(L) 200 - 950 /uL 01/11/2019 10:59 PM EDT [facility] Eosinophils Absolute 160 15 - 500 /uL 01/11/2019 10:59 PM EDT [facility] Basophils Absolute 0 0 - 200 /uL 01/11/2019 10:59 PM EDT [facility] RBC Morphology Normal 01/11/2019 10:59 PM EDT [facility] PLT Morphology Platelet morphology appears normal 01/11/2019 10:59 PM EDT [facility] Whole blood specimen (specimen) 01/11/2019 9:31 PM EDT 01/11/2019 9:51 PM EDT us Renato Foy MD LAB BLOOD ORDERABLES Final Res ult Performing Organization Address City/State/[facility] Co de Phone Number [facility] [address] * (ABNORMAL) CBC (01/11/2019 9:31 PM EDT) WBC 3.9 3.8 - 10.8 10E3/uL 01/11/2019 10:16 PM EDT [facility] RBC 3.41(L) 4.20 - 5.80 10E6/uL 01/11/2019 10:16 PM EDT [facility] Hemoglobin 10.0(L) 13.2 - 17.1 g/dL 01/11/2019 10:16 PM EDT [facility] Hematocrit 29.4(L) 38.5 - 50.0 % 01/11/2019 10:16 PM EDT [facility] MCV 86.0 80.0 - 100.0 fL 01/11/2019 10:16 PM EDT [facility] MCH 29.2 27.0 - 33.0 pg 01/11/2019 10:16 PM EDT [facility] MCHC 33.9 32.0 - 36.0 g/dL 01/11/2019 10:16 PM EDT [facility] RDW 14.8 11.0 - 15.0 % 01/11/2019 10:16 PM EDT [facility] Platelets 218 140 - 400 10E3/uL 01/11/2019 10:16 PM EDT [facility] MPV 7.0(L) 7.5 - 11.5 fL 01/11/2019 10:16 PM EDT [facility] Whole blood specimen (specimen) 01/11/2019 9:31 PM EDT 01/11/2019 9:51 PM EDT us Renato Foy MD LAB BLOOD ORDERABLES Final Res ult [facility] [address] documented in this encounter Visit Diagnoses Diagnosis Kazqi-jl-tlegxhs kidney injury (CMS-HCC)- Primary YANDY (acute kidney injury) (CMS-HCC) Bilateral lower extremity edema S/P liver transplant (CMS-HCC) Peripheral edema Edema Acute renal failure superimposed on stage 3 chronic kidney disease, unspecified acute renal failure type (CMS-HCC) Type 2 diabetes mellitus without complication, with long-term current use of insulin (CMS-HCC) Nephrotic syndrome Nephrotic syndrome with unspecified pathological lesion in kidney Essential hypertension Unspecified essential hypertension Neuropathy Mononeuritis of unspecified site Hyperglycemia Other abnormal glucose S/P liver transplant (CMS-[facility]) Peripheral edema Edema Hypertension Unspecified essential hypertension Diabetes mellitus (CMS-[facility]) Type II or unspecified type diabetes mellitus without mention of complication, not stated as uncontrolled documented in this encounter Administered Medications Inactive Administered Medications - up to 3 most recent administrations Medication Order MAR Action Action Date Dose Rate Site bisacodyl (DULCOLAX) suppository 10 mg 10 mg, Rectal, Daily as needed, Constipation, Starting on Mon01/15/19 at 1532 calcium carbonate (TUMS) chewable tablet 500 mg 500 mg, Oral, 3 times daily PRN, Indigestion, Starting on Mon01/13/19 at 2056 carBAMazepine (TEGRETOL) tablet 200 mg 200 mg, Oral, At Bedtime (2100), First dose on Mon01/12/19 at 0346 Given 01/16/2019 8:18 PM EDT 200 mg Given 01/15/2019 10:05 PM EDT 200 mg Given 01/14/2019 9:30 PM EDT 200 mg carvedilol (COREG) tablet 50 mg 50 mg, Oral, 2 times daily with meals, First dose (after last modification) on Mon01/12/19 at 0400 Given 01/17/2019 9:47 AM EDT 50 mg Given 01/16/2019 4:48 PM EDT 50 mg Given 01/16/2019 9:05 AM EDT 50 mg cloNIDine HCl (CATAPRES) tablet 0.1 mg 0.1 mg, Oral, 2 times daily, First dose on Mon01/14/19 at 1218 Given 01/17/2019 9:47 AM EDT 0.1 mg Given 01/16/2019 8:25 PM EDT 0.1 mg Given 01/16/2019 9:06 AM EDT 0.1 mg dextrose 10 % (D10W) in water infusion 12.5 g, Intravenous, Every 15 min PRN, for glucose < 70 and alert but can not be corrected orally or via feeding tube, Starting on Mon01/12/19 at 0351, Recheck blood sugar in 15 minutes and repeat treatment if glucose still < 70. FOR SMART PUMP: Set volume to be infused to 125 mL = 12.5 grams OR 250 mL = 25 grams dextrose 10 % (D10W) in water infusion 25 g, Intravenous, Every 15 min PRN, for glucose < 70 and not alert, Starting on Mon01/12/19 at 0351, Recheck blood sugar in 15 minutes and repeat treatment if glucose still < 70. FOR SMART PUMP: Set volume to be infused to 125 mL = 12.5 grams OR 250 mL = 25 grams entecavir (BARACLUDE) tablet 0.5 mg 0.5 mg, Oral, Every other day, First dose on Mon01/13/19 at 0900, ADMINISTER ON EMPTY STOMACH (2 HOURS BEFORE OR AFTER MEALS). LEVEL 2 HAZARDOUS MEDICATION Given 01/17/2019 9:47 AM EDT 0.5 mg Given 01/15/2019 8:46 AM EDT 0.5 mg Given 01/13/2019 9:14 AM EDT 0.5 mg ergocalciferol capsule 50,000 Units 50,000 Units, Oral, Weekly, First dose on Mon01/15/19 at 1600 Given 01/15/2019 5:41 PM EDT 50,000 Units famotidine (PEPCID) tablet 20 mg 20 mg, Oral, Daily, First dose on Mon01/12/19 at 0900 Given 01/17/2019 9:47 AM EDT 20 mg Given 01/16/2019 9:06 AM EDT 20 mg Given 01/15/2019 8:45 AM EDT 20 mg furosemide (LASIX) injection 60 mg 60 mg, Intravenous, Two times a day, First dose on Mon01/13/19 at 0931, Give doses of 100mg or less over 5 minutes. For doses over 100mg, give at rate of up to 20mg/min. Given 01/17/2019 9:47 AM EDT 60 mg Given 01/16/2019 4:48 PM EDT 60 mg Given 01/16/2019 9:06 AM EDT 60 mg gabapentin (NEURONTIN) capsule 200 mg 200 mg, Oral, 3 times daily, First dose (after last modification) on Mon01/15/19 at 0900Indications:Neuropathy Given 01/17/2019 1:23 PM EDT 200 mg Given 01/17/2019 9:47 AM EDT 200 mg Given 01/16/2019 8:18 PM EDT 200 mg gabapentin (NEURONTIN) capsule 300 mg 300 mg, Oral, 3 times daily, First dose (after last modification) on Mon01/12/19 at 1300 Given 01/14/2019 9:30 PM EDT 300 mg Given 01/14/2019 1:29 PM EDT 300 mg Given 01/14/2019 8:55 AM EDT 300 mg gabapentin (NEURONTIN) capsule 600 mg 600 mg, Oral, 3 times daily, First dose on Mon01/12/19 at 0900 Given 01/12/2019 9:21 AM EDT 600 mg glucose chewable tablet 12 g 12 g, Oral, Every 15 min PRN, Low blood sugar, for glucose 50-70 mg/dL, Starting on 01/12/19 at 0351, Recheck glucose in 15 minutes and if glucose still < 70, repeat treatment. DO NOT ADMINISTER VIA FEEDING TUBE guaiFENesin (ROBITUSSIN) 100 mg/5 mL syrup 10 mL 10 mL, Oral, Every 4 hours PRN, Congestion, Starting on 01/14/19 at 2208 Given 01/15/2019 9:47 AM EDT 10 mLs Given 01/14/2019 10:21 PM EDT 10 mLs heparin (porcine) injection 5,000 Units 5,000 Units, Subcutaneous, Every 8 hours scheduled (3 times per day), First dose on 01/12/19 at 0219 Given 01/17/2019 9:48 AM EDT 5,000 Units Abdominal Tissue Given 01/15/2019 8:46 AM EDT 5,000 Units A bdominal Tissue Given 01/14/2019 8:57 AM EDT 5,000 Units A bdominal Tissue insulin lispro (humaLOG) injection 0-8 Units 0-8 Units, Subcutaneous, 3 times daily before meals, First dose on 01/12/19 at 0900, HIGH ALERT MEDICATION Given 01/17/2019 1:19 PM EDT 3 Units Abdom inal Tissue Given 01/16/2019 8:17 PM EDT 1 Units Le ft Arm Given 01/15/2019 5:42 PM EDT 1 Units Ab dominal Tissue insulin lispro (humaLOG) injection 5 Units 5 Units, Subcutaneous, 3 times daily before meals, First dose on 01/12/19 at 1926, HIGH ALERT MEDICATION Onset of action is rapid. Give dose 5-10 minutes before meal. Have meal at bedside. Given 01/17/2019 1:19 PM EDT 5 Units A bdominal Tissue Given 01/17/2019 10:58 AM EDT 5 Units A bdominal Tissue Given 01/16/2019 8:16 PM EDT 5 Units Le ft Arm insulin NPH (HumuLIN N) injection 15 Units 15 Units, Subcutaneous, 2 times daily, First dose on 01/12/19 at 0900, Do not hold medication unless instructed by provider. HIGH ALERT MEDICATION Given 01/17/2019 11:05 AM EDT 15 Units Abdominal Tissue Given 01/16/2019 8:17 PM EDT 15 Units Le ft Arm Given 01/16/2019 10:02 AM EDT 15 Units A bdominal Tissue iron sucrose (VENOFER) 300 mg in sodium chloride 0.9 % 250 mL IVPB 300 mg, Intravenous, Administer over 90 Minutes, Every 24 hours scheduled (Daily) New Bag 01/16/2019 4:48 PM EDT 300 mg 166.7 mL/hr New Bag 01/15/2019 5:41 PM EDT 300 mg 166.7 mL/hr lidocaine-prilocaine (EMLA) cream Topical, As needed, mild pain (NRS 1-3), moderate pain (NRS-4-6), hands and feet as needed., Starting on 01/13/19 at 1053, ALLOW AT LEAST 1 HOUR FOR OPTIMUM THERAPEUTIC EFFECT., Apply to: Other mycophenolate (CELLCEPT) capsule 750 mg 750 mg, Oral, 2 times daily, First dose on 01/12/19 at 0900, LEVEL 2 HAZARDOUS MEDICATION Given 01/17/2019 9:52 AM EDT 750 mg Given 01/16/2019 8:18 PM EDT 750 mg Given 01/16/2019 9:06 AM EDT 750 mg NIFEdipine (PROCARDIA-XL) 24 hr tablet 90 mg 90 mg, Oral, 2 times daily, First dose (after last modification) on 01/12/19 at 0319, DO NOT CRUSH Given 01/17/2019 9:47 AM EDT 90 mg Given 01/16/2019 8:18 PM EDT 90 mg Given 01/16/2019 9:06 AM EDT 90 mg ondansetron (ZOFRAN-ODT) disintegrating tablet 4 mg 4 mg, Oral, Every 8 hours PRN, Nausea, Vomiting, Starting on 01/12/19 at 0346 Given 01/13/2019 1:49 PM EDT 4 m g Given 01/12/2019 4:29 AM EDT 4 mg oxyCODONE (ROXICODONE) immediate release tablet 10 mg 10 mg, Oral, Once, On 01/13/19 at 1055, For 1 dose Given 01/13/2019 1:07 PM EDT 10 mg oxyCODONE (ROXICODONE) immediate release tablet 5 mg 5 mg, Oral, Once as needed, severe pain (NRS 7-10), As needed for pain, Starting on 01/12/19 at 0625, For 1 dose Given 01/12/2019 6:02 AM EDT 5 mg oxyCODONE (ROXICODONE) immediate release tablet 5 mg 5 mg, Oral, Every 4 hours PRN, severe pain (NRS 7-10), Starting on 01/12/19 at 1148 Given 01/17/2019 9:59 AM EDT 5 mg Given 01/17/2019 5:09 AM EDT 5 mg Given 01/16/2019 11:45 PM EDT 5 mg perflutren lipid microspheres (DEFINITY) injection 2.2 mg 2.2 mg, Intravenous, IMG once as needed, Other, Starting on Mon01/16/19 at 0823, For 1 dose Given 01/16/2019 7:48 AM EDT 2.2 mg perflutren lipid microspheres (DEFINITY) injection 2.2 mg 2.2 mg, Intravenous, IMG once as needed, Other, Starting on Mon01/16/19 at 0912, For 1 dose polyethylene glycol (MIRALAX) packet 17 g 17 g, Oral, Daily, First dose on Mon01/14/19 at 1041 Given 01/15/2019 8:45 AM EDT 17 g Given 01/14/2019 10:43 AM EDT 17 g polyethylene glycol (MIRALAX) packet 17 g 17 g, Oral, 2 times daily PRN, Constipation, Starting on Mon01/16/19 at 0100 Given 01/16/2019 12:18 AM EDT 17 g proMETHazine (PHENERGAN) injection 25 mg 25 mg, Intravenous, Every 6 hours PRN, Nausea, Starting on Mon01/13/19 at 2056, IRRITANT IV Push administration REQUIRES dilution with 10 mL Saline Given 01/16/2019 9:06 AM EDT 25 mg Given 01/16/2019 2:36 AM EDT 25 mg Given 01/15/2019 8:58 AM EDT 25 mg tacrolimus ER (24 HR) (ENVARSUS XR) tablet 2 mg 2 mg, Oral, Daily, First dose on Mon01/12/19 at 0900, TAKE ON EMPTY STOMACH SWALLOW WHOLE; DO NOT CRUSH, CHEW OR DIVIDE Given 01/12/2019 9:40 AM EDT 2 mg tacrolimus ER (24 HR) (ENVARSUS XR) tablet 2 mg 2 mg, Oral, Daily6, First dose on Mon01/15/19 at 1300, TAKE ON EMPTY STOMACH SWALLOW WHOLE; DO NOT CRUSH, CHEW OR DIVIDE Given 01/17/2019 6:20 AM EDT 2 mg Given 01/16/2019 6:28 AM EDT 2 mg terazosin (HYTRIN) capsule 10 mg 10 mg, Oral, 2 times daily, First dose (after last modification) on 01/12/19 at 0320, Therapeutic Interchange: doxazosin (CARDURA) 8 mg daily = terazosin (HYTRIN) 10 mg daily Given 01/17/2019 9:49 AM EDT 10 mg Given 01/16/2019 8:18 PM EDT 10 mg Given 01/16/2019 9:19 AM EDT 10 mg documented in this encounter Active and Recently Administered Medications Times are shown in EDT. Scheduled Medication Order 01/15/2019 01/16/2019 01/17/2019 carBAMazepine (TEGRETOL) tablet 200 mg 200 mg, Oral, At Bedtime (2100), First dose on Mon01/12/19 at 0346 2205 (Given - Provider: Wilmer Giraldo RN) 2018 (Given - Provider: Radha Barnes, JANA) carvedilol (COREG) tablet 50 mg 50 mg, Oral, 2 times daily with meals, First dose (after last modification) on Mon01/12/19 at 0400 0846 (Given - Provider: Kim Batista RN)1741 (Given - Provider: Kim Batista RN) 0905 (Given - Provider: Kim Batista RN)1648 (Given - Provider: Kim Batista RN) 0947 (Given - Provider: Stan Barnes, JANA)1700 (Due) cloNIDine HCl (CATAPRES) tablet 0.1 mg 0.1 mg, Oral, 2 times daily, First dose on Mon01/14/19 at 1218 0845 (Given - Provider: Kim Batista RN)2222 (Given - Provider: Wilmer Giraldo RN) 0906 (Given - Provider: Kim Batista RN)2025 (Given - Provider: Radha Barnes RN) 0947 (Given - Provider: Stan Barnes RN) entecavir (BARACLUDE) tablet 0.5 mg 0.5 mg, Oral, Every other day, First dose on Mon01/13/19 at 0900, ADMINISTER ON EMPTY STOMACH (2 HOURS BEFORE OR AFTER MEALS). LEVEL 2 HAZARDOUS MEDICATION 0846 (Given - Provider: Kim Batista RN) 0947 (Given - Provider: Stan Barnes RN) ergocalciferol capsule 50,000 Units 50,000 Units, Oral, Weekly, First dose on Mon01/15/19 at 1600 1741 (Given - Provider: Kim Batista RN) famotidine (PEPCID) tablet 20 mg 20 mg, Oral, Daily, First dose on Mon01/12/19 at 0900 0845 (Given - Provider: Kim Batista RN) 0906 (Given - Provider: Kim Batista RN) 0947 (Given - Provider: Stan Barnes RN) furosemide (LASIX) injection 60 mg 60 mg, Intravenous, Two times a day, First dose on Mon01/13/19 at 0931, Give doses of 100mg or less over 5 minutes. For doses over 100mg, give at rate of up to 20mg/min. 0846 (Given - Provider: Kim Batista RN)1741 (Given - Provider: Kim Batista RN) 0906 (Given - Provider: Kim Batista RN)1648 (Given - Provider: Kim Batista RN) 0947 (Given - Provider: Stan Barnes RN)1700 (Due) gabapentin (NEURONTIN) capsule 200 mg 200 mg, Oral, 3 times daily, First dose (after last modification) on Mon01/15/19 at 0900 0858 (Given - Provider: Kim Batista RN)1400 (Given - Provider: Kim Batista RN)2205 (Given - Provider: Wilmer Giraldo RN) 0906 (Given - Provider: Kim Batista RN)1420 (Given - Provider: Kim Batista RN)2018 (Given - Provider: Radha Barnes RN) 0947 (Given - Provider: Stan Barnes RN)1323 (Given - Provider: Stan Barnes RN) heparin (porcine) injection 5,000 Units 5,000 Units, Subcutaneous, Every 8 hours scheduled (3 times per day), First dose on 01/12/19 at 0219 0846 (Given - Provider: Kim Batista RN)1352 (Not Given - Provider: Kim Batista RN - Reason: Order parameters not met)2207 (Not Given - Provider: Wilmer Giraldo RN - Reason: Patient/family refused) 0906 (Not Given - Provider: Kim Batista RN - Reason: Patient/family refused)1334 (Not Given - Provider: Kim Batista RN - Reason: Patient/family refused)2018 (Not Given - Provider: Radha Barnes RN - Reason: Patient/family refused) 0948 (Given - Provider: Stan Barnes RN)1323 (Not Given - Provider: Stan Barnes RN - Reason: Patient/family refused) insulin lispro (humaLOG) injection 0-8 Units 0-8 Units, Subcutaneous, 3 times daily before meals, First dose on 01/12/19 at 0900, HIGH ALERT MEDICATION 0844 (Not Given - Provider: Kim Batista RN - Reason: Order parameters not met)1519 (Not Given - Provider: Kim Batista RN - Reason: Order parameters not met)1742 (Given - Provider: Kim Batista RN) 1001 (Not Given - Provider: Kim Batista RN - Reason: Order parameters not met)1420 (Not Given - Provider: Kim Batista RN - Reason: Order parameters not met)2017 (Given - Provider: Radha Barnes RN) 1057 (Not Given - Provider: Stan Barnes RN - Reason: Order parameters not met)1319 (Given - Provider: Stan Barnes, JANA)1800 (Due) insulin lispro (humaLOG) injection 5 Units 5 Units, Subcutaneous, 3 times daily before meals, First dose on 01/12/19 at 1926, HIGH ALERT MEDICATION Onset of action is rapid. Give dose 5-10 minutes before meal. Have meal at bedside. 0846 (Given - Provider: Kim Batista RN)1517 (Given - Provider: Kim Batista RN)1910 (Given - Provider: Kim Batista RN) 1001 (Given - Provider: Kim Batista RN)1421 (Given - Provider: Kim Batista RN)2016 (Given - Provider: Radha Barnes, JANA) 1058 (Given - Provider: Stan Barnes, JANA - Comment: pt not eating)1319 (Given - Provider: Stan Barnes RN)1800 (Due) insulin NPH (HumuLIN N) injection 15 Units 15 Units, Subcutaneous, 2 times daily, First dose on 01/12/19 at 0900, Do not hold medication unless instructed by provider. HIGH ALERT MEDICATION 0857 (Given - Provider: Kim Batista RN)2229 (Given - Provider: Wilmer Giraldo RN) 1002 (Given - Provider: Kim Batista RN)2017 (Given - Provider: Radha Barnes RN) 1105 (Given - Provider: Stan Barnes, JANA) iron sucrose (VENOFER) 300 mg in sodium chloride 0.9 % 250 mL IVPB 300 mg, Intravenous, Administer over 90 Minutes, Every 24 hours scheduled (Daily) 1741 (New Bag - Provider: Kim Batista RN) 1648 (New Bag - Provider: Kim Batista RN) 1600 (Due) mycophenolate (CELLCEPT) capsule 750 mg 750 mg, Oral, 2 times daily, First dose on 01/12/19 at 0900, LEVEL 2 HAZARDOUS MEDICATION 0845 (Given - Provider: Kim Batista RN)2204 (Given - Provider: Wilmer Giraldo RN) 0906 (Given - Provider: Kim Batista, JANA)2018 (Given - Provider: Radha Barnes RN) 0952 (Given - Provider: Stan Barnes, JANA) NIFEdipine (PROCARDIA-XL) 24 hr tablet 90 mg 90 mg, Oral, 2 times daily, First dose (after last modification) on 01/12/19 at 0319, DO NOT CRUSH 0845 (Given - Provider: Kim Batista RN)220 (Given - Provider: Wilmer Giraldo RN) 09 (Given - Provider: Kim Batista RN)2017 (Given - Provider: Radha Barnes, JANA) 0947 (Given - Provider: Stan Barnes, JANA) polyethylene glycol (MIRALAX) packet 17 g (CANCELED) 17 g, Oral, Daily, First dose on Mon01/14/19 at 1041 0845 (Given - Provider: Kim Batista RN) tacrolimus ER (24 HR) (ENVARSUS XR) tablet 2 mg 2 mg, Oral, Daily6, First dose on Mon01/15/19 at 1300, TAKE ON EMPTY STOMACH SWALLOW WHOLE; DO NOT CRUSH, CHEW OR DIVIDE 1402 (Hold - Provider: Kim Batista RN - Reason: Other) 0628 (Given - Provider: Wilmer Giraldo RN) 0620 (Given - Provider: Sienna Wood RN) terazosin (HYTRIN) capsule 10 mg 10 mg, Oral, 2 times daily, First dose (after last modification) on 01/12/19 at 0320, Therapeutic Interchange: doxazosin (CARDURA) 8 mg daily = terazosin (HYTRIN) 10 mg daily 0845 (Given - Provider: Kim Batista RN)220 (Given - Provider: Wilmer Giraldo RN) 09 (Given - Provider: Kim Batista RN)2017 (Given - Provider: Radha Barnes RN) 0949 (Given - Provider: Stan Barnes, JANA) PRN Medication Order 01/15/2019 01/16/2019 01/17/2019 bisacodyl (DULCOLAX) suppository 10 mg 10 mg, Rectal, Daily as needed, Constipation, Starting on Mon01/15/19 at 1532 calcium carbonate (TUMS) chewable tablet 500 mg 500 mg, Oral, 3 times daily PRN, Indigestion, Starting on Mon01/13/19 at 2056 dextrose 10 % (D10W) in water infusion(Linked Group 1) 12.5 g, Intravenous, Every 15 min PRN, for glucose < 70 and alert but can not be corrected orally or via feeding tube, Starting on 01/12/19 at 0351, Recheck blood sugar in 15 minutes and repeat treatment if glucose still < 70. FOR SMART PUMP: Set volume to be infused to 125 mL = 12.5 grams OR 250 mL = 25 grams dextrose 10 % (D10W) in water infusion(Linked Group 1) 25 g, Intravenous, Every 15 min PRN, for glucose < 70 and not alert, Starting on 01/12/19 at 0351, Recheck blood sugar in 15 minutes and repeat treatment if glucose still < 70. FOR SMART PUMP: Set volume to be infused to 125 mL = 12.5 grams OR 250 mL = 25 grams glucose chewable tablet 12 g 12 g, Oral, Every 15 min PRN, Low blood sugar, for glucose 50-70 mg/dL, Starting on 01/12/19 at 0351, Recheck glucose in 15 minutes and if glucose still < 70, repeat treatment. DO NOT ADMINISTER VIA FEEDING TUBE guaiFENesin (ROBITUSSIN) 100 mg/5 mL syrup 10 mL 10 mL, Oral, Every 4 hours PRN, Congestion, Starting on 01/14/19 at 2208 0947 (Given - Provider: Kim Batista RN) lidocaine-prilocaine (EMLA) cream Topical, As needed, mild pain (NRS 1-3), moderate pain (NRS-4-6), hands and feet as needed., Starting on 01/13/19 at 1053, ALLOW AT LEAST 1 HOUR FOR OPTIMUM THERAPEUTIC EFFECT., Apply to: Other oxyCODONE (ROXICODONE) immediate release tablet 5 mg (CANCELED)(Linked Group 2) 5 mg, Oral, Every 4 hours PRN, severe pain (NRS 7-10), Starting on 01/12/19 at 1148 2345 (Given - Provider: Sienna Wood RN) 0509 (Given - Provider: Sienna Wood, RN)0959 (Given - Provider: Stan Barnes RN) perflutren lipid microspheres (DEFINITY) injection 2.2 mg (COMPLETED) 2.2 mg, Intravenous, IMG once as needed, Other, Starting on Mon01/16/19 at 0823, For 1 dose 0748 (Given - Provider: Deb Lopez RN) perflutren lipid microspheres (DEFINITY) injection 2.2 mg 2.2 mg, Intravenous, IMG once as needed, Other, Starting on Mon01/16/19 at 0912, For 1 dose polyethylene glycol (MIRALAX) packet 17 g 17 g, Oral, 2 times daily PRN, Constipation, Starting on Mon01/16/19 at 0100 0018 (Given - Provider: Wilmer Giraldo, JANA) proMETHazine (PHENERGAN) injection 25 mg 25 mg, Intravenous, Every 6 hours PRN, Nausea, Starting on Mon01/13/19 at 2056, IRRITANT IV Push administration REQUIRES dilution with 10 mL Saline 0101 (Given - Provider: Radha Barnes, JANA)0858 (Given - Provider: Kim Batista, RN) 0236 (Given - Provider: Wilmer Giraldo, JANA)0906 (Given - Provider: Kim Batista, JANA) Linked Groups Order Group 1: dextrose 10 % (D10W) in water infusionJump to med 12.5 g, Intravenous, Every 15 min PRN, for glucose < 70 and alert but can not be corrected orally or via feeding tube, Starting on 01/12/19 at 0351, Recheck blood sugar in 15 minutes and repeat treatment if glucose still < 70. FOR SMART PUMP: Set volume to be infused to 125 mL = 12.5 grams OR 250 mL = 25 grams Or dextrose 10 % (D10W) in water infusionJump to med 25 g, Intravenous, Every 15 min PRN, for glucose < 70 and not alert, Starting on 01/12/19 at 0351, Recheck blood sugar in 15 minutes and repeat treatment if glucose still < 70. FOR SMART PUMP: Set volume to be infused to 125 mL = 12.5 grams OR 250 mL = 25 grams Group 2: oxyCODONE (ROXICODONE) immediate release tablet 2.5 mg (CANCELED) 2.5 mg, Oral, Every 4 hours PRN, moderate pain (NRS-4-6), Starting on 01/12/19 at 1148 Or oxyCODONE (ROXICODONE) immediate release tablet 5 mg (CANCELED)Jump to med 5 mg, Oral, Every 4 hours PRN, severe pain (NRS 7-10), Starting on 01/12/19 at 1148 documented in this encounter Additional Health Concerns Assessment Noted Time PHQ-9 Depression Total Score: 0 12/06/19 18 3:00 PM EDT documented as of this encounter Care Teams Astronomy Teacher Relationship Specialty Start Date End Date Edgar Fournier MD [address] [place] [address] PCP - General 08/18/17 06/23/21 Maile Valles, JANA Txp Post Coordinator Transplant Hepatology 11/07/17 Jack Ordoñez MD [address] [place] [address] Consulting Physician Transplant Hepatology 01/05/18 documented as of this encounter
--- OUTSIDE RECORDS SUMMARY | 2024-07-12 12:49 | XMS_ITS | Encounter Summary ---
Author Organization Health Address [facility] [place] [address] Care Team Providers Care Sales And Leasing Agent Name Role Phone Edgar Fournier MD Primary Care Provider [phone] Maile Valles RN Unavailable Unavail able Jack Ordoñez MD Unavailable [phone] Source Comments This information has been [...] release of HIV test results or diagnoses. [id number] Encounter Details Date Type Department Care Team (Late st Contact Info) Description 01/22/2019 Telephone [facility] Liver Transplant at Outpatient [address] [address] Melvin Petty MA Social History [...] Telephone Encounter - Maile Valles RN - 01/22/2019 4:43 PM EDT Attempted to contact patient to discuss, however no answer and VM boxes for both listed phones are not set up. * Telephone Encounter - Melvin Petty MA - 01/22/2019 3:29 PM EDT Patient called and wants to speaks with Maile about medicine he is on that is messing up his kidney's. Patient is very angry that nobody has gotten back with him about this. Patient said he wants an answer from Dr. Ordoñez as well documented in this encounter Plan of Treatment Upcoming Encounters Date Type Department Care Team (Late st Contact Info) Description 07/15/2024 9:00 AM EST Hospital Encounter [facility] Interventional Radiology [address] [place] [address] Herve Carrillo MD [address] [facility] [address] [place] [address] documented as of this encounter Visit Diagnoses Not on filedocumented in this encounter Additional Health Concerns Assessment Noted Time PHQ-9 Depression Total Score: 0 12/06/19 18 3:00 PM EDT documented as of this encounter Care Teams Sales And Leasing Agent Relationship Specialty Start Date End Date Edgar Fournier MD [address] [place] [address] [place] [address] PCP - General 08/18/17 06/23/21 Maile Valles RN Txp Post Coordinator Transplant Hepatology 11/07/17 Jack Ordoñez MD [address] [place] [phone] Consulting Physician Transplant Hepatology 01/05/18 documented as of this encounter
--- OUTSIDE RECORDS SUMMARY | 2024-07-12 12:49 | XMS_ITS | Encounter Summary ---
Author Organization Health Address [facility] [place] [address] Care Team Providers Care Radial Drill Press Operator For Plastic Name Role Phone Edgar Fournier MD Primary Care Provider [phone] Maile Valles RN Unavailable Unavail able Jack Ordoñez MD Unavailable [phone] Source Comments This information has been [...] release of HIV test results or diagnoses. [id number] Encounter Details Date Type Department Care Team (Late st Contact Info) Description 12/26/2018 Chart Note [facility] Liver Transplant at Outpatient [address] [phone] Maile Valles, JANA Patient had an EGD at an OSH on 10/31/18 d/t dysphagia. Social History Tobacco Use Types Packs/Day Years [...] Progress Notes * Maile Valles RN - 12/26/2018 1:15 PM EDT Patient had an EGD at an OSH on 10/31/18 d/t dysphagia. A hiatal hernia was noted. A Schatzki's ring was noted with surrounding ulceration. Recommendations: Recommend Protonix 40 mg BID for treatment of ulcerative esophagitis. Duodenal, gastric, and esophageal biopsies were all negative. Report submitted for scanning. documented in this encounter Plan of Treatment Upcoming Encounters Date Type Department Care Team (Late st Contact Info) Description 07/15/2024 9:00 AM EST Hospital Encounter [facility] Interventional Radiology [address] [place] [phone] Herve Carrillo MD [address] [facility] [address] [place] [phone] documented as of this encounter Visit Diagnoses Not on filedocumented in this encounter Additional Health Concerns Assessment Noted Time PHQ-9 Depression Total Score: 0 12/06/19 18 3:00 PM EDT documented as of this encounter Care Teams Radial Drill Press Operator For Plastic Relationship Specialty Start Date End Date Edgar Fournier MD [address] [place] [address] [place] [address] PCP - General 08/18/17 06/23/21 Maile Valles RN Txp Post Coordinator Transplant Hepatology 11/07/17 Jack Ordoñez MD [address] [place] [phone] Consulting Physician Transplant Hepatology 01/05/18 documented as of this encounter
--- OUTSIDE RECORDS SUMMARY | 2024-07-12 12:49 | XMS_ITS | Encounter Summary ---
Author Organization Health Address [facility] [place] [address] Care Team Providers Care Quantitative Software Engineer Name Role Phone Edgar Fournier MD Primary Care Provider [phone] Maile Valles RN Unavailable Unavail able Jack Ordoñez MD Unavailable [phone] Source Comments This information has been [...] release of HIV test results or diagnoses. [id number] Encounter Details Date Type Department Care Team (Late st Contact Info) Description 01/31/2019 Telephone [facility] Liver Transplant at Outpatient [address] [address] Maile Valles, JANA Social History Tobacco Use [...] Telephone Encounter - Maile Valles RN - 01/31/2019 12:34 PM EDT Spoke with patient. Has not obtained labs since hospital discharge, requested that he get labs as soon as possible. He verbalized understanding. Scheduled patient to see Dr. Polanco (in Liver Txp clinic) on 02/12. Will keep general nephrology appointment scheduled for 02/28 for now. Patient stating that his BP and blood glucose have been well controlled and he is working to lose weight. documented in this encounter Plan of Treatment Upcoming Encounters Date Type Department Care Team (Late st Contact Info) Description 07/15/2024 9:00 AM EST Hospital Encounter [facility] Interventional Radiology [address] [place] [phone] Herve Carrillo MD [address] [facility] [address] [place] [phone] documented as of this encounter Visit Diagnoses Not on filedocumented in this encounter Additional Health Concerns Assessment Noted Time PHQ-9 Depression Total Score: 0 12/06/19 18 3:00 PM EDT documented as of this encounter Care Teams Quantitative Software Engineer Relationship Specialty Start Date End Date Edgar Fournier MD [address] [place] [address] [place] [address] PCP - General 08/18/17 06/23/21 Maile Valles, JANA Txp Post Coordinator Transplant Hepatology 11/07/17 Jack Ordoñez MD [address] [place] [phone] Consulting Physician Transplant Hepatology 01/05/18 documented as of this encounter
--- OUTSIDE RECORDS SUMMARY | 2024-07-12 12:49 | XMS_ITS | Encounter Summary ---
Author Organization Health Address [facility] [place] [address] Care Team Providers Care Disabilities Services Officer Name Role Phone Edgar Fournier MD Primary Care Provider [phone] Maile Valles RN Unavailable Unavail able Jack Ordoñez MD Unavailable [phone] Source Comments This information has been [...] release of HIV test results or diagnoses. [id number] Encounter Details Date Type Department Care Team (Late st Contact Info) Description 02/07/2019 Orders Only [facility] [phone] Latrice Brice MA Transplanted liver ([facility]) (Primary Dx); Drug therapy Social History Tobacco Use Types [...] Description 07/15/2024 9:00 AM EST Hospital Encounter [facility] Interventional Radiology [address] [place] [phone] Herve Carrillo MD 3130 [facility] [address] Surgery [place] [phone] documented as of this encounter Visit Diagnoses Diagnosis Transplanted liver (CMS-HCC)- Primary Liver replaced by transplant Drug therapy Encounter for other specified aftercare documented in this encounter Additional Health Concerns Assessment Noted Time PHQ-9 Depression Total Score: 0 12/06/19 18 3:00 PM EDT documented as of this encounter Care Teams Disabilities Services Officer Relationship Specialty Start Date End Date Edgar Fournier MD [address] [place] [address] [place] [address] PCP - General 08/18/17 06/23/21 Maile Valles, JANA Txp Post Coordinator Transplant Hepatology 11/07/17 Jack Ordoñez MD [address] [place] [phone] Consulting Physician Transplant Hepatology 01/05/18 documented as of this encounter
--- OUTSIDE RECORDS SUMMARY | 2024-07-12 12:49 | XMS_ITS | Encounter Summary ---
Author Organization Health Address [facility] [place] [address] Care Team Providers Care Stain Wiper Name Role Phone Edgar Fournier MD Primary Care Provider [phone] Maile Valles RN Unavailable Unavail able Jack Ordoñez MD Unavailable [phone] Source Comments This information has been [...] release of HIV test results or diagnoses. [id number] Encounter Details Date Type Department Care Team (Late st Contact Info) Description 01/11/2019 Telephone [facility] Liver Transplant at Outpatient [address] [address] Latrice Brice MA Social History Tobacco Use [...] Telephone Encounter - Latrice Brice MA - 01/11/2019 2:03 PM EDT This MA spoke to Aiden and supplied him with referral number for Nephrology to call and schedule. Aiden verbalized understanding documented in this encounter Plan of Treatment Upcoming Encounters Date Type Department Care Team (Late st Contact Info) Description 07/15/2024 9:00 AM EST Hospital Encounter [facility] Interventional Radiology [address] [place] [phone] Herve Carrillo MD 3130 [facility] [address] [place] [phone] documented as of this encounter Visit Diagnoses Not on filedocumented in this encounter Additional Health Concerns Assessment Noted Time PHQ-9 Depression Total Score: 0 12/06/19 18 3:00 PM EDT documented as of this encounter Care Teams Stain Wiper Relationship Specialty Start Date End Date Edgar Fournier MD [address] [place] [address] [place] [address] PCP - General 08/18/17 06/23/21 Maile Valles, RN Txp Post Coordinator Transplant Hepatology 11/07/17 Jack Ordoñez MD [address] [place] [phone] Consulting Physician Transplant Hepatology 01/05/18 documented as of this encounter
--- OUTSIDE RECORDS SUMMARY | 2024-07-12 12:49 | XMS_ITS | Encounter Summary ---
Author Organization [facility] Address [facility] [place] [address] Care Team Providers Care Biology Adjunct Instructor Name Role Phone Edgar Fournier MD Primary Care Provider [phone] Jazmín Olmedo RN Unavailable Unavail able Jack Ordoñez MD Unavailable [phone] Source Comments This information has been [...] release of HIV test results or diagnoses. [id number] Reason for Referral * Physician/ANUSHA (Routine) - Closed Specialty Diagnoses / Procedures Referred By Contac t Referred To Contact [facility] Nephrology Diagnoses S/P liver transplant ([facility]) Elevated serum creatinine [facility] Liver Transplant at Outpatient [address] [address] Phone: tel: fax: Referral ID Status Reason Start Date Expiration Date Visits Re quested Visits Authorized [id number] Closed 01/11/2019 07/10/2019 1 1 Scheduling Instructions For appointments, please call [phone]. Encounter Details Date Type Department Care Team (Late st Contact Info) Description 01/11/2019 Telephone [facility] Liver Transplant at Outpatient [place] [address] [place] [phone] Latrice Brice MA Social History Tobacco Use [...] of this encounter Progress Notes * Jazmín Olmedo RN - 01/11/2019 1:51 PM EDTAddended by: JAZMÍN OLMEDO on: 01/11/2019 01:51 PM Modules accepted: Orders documented in this encounter Miscellaneous Notes * Telephone Encounter - Jazmín Olmedo RN - 01/11/2019 1:47 PM EDT Nephrology referral placed. [facility] to notify patient to call [phone] to schedule appointment. * Telephone Encounter - Jazmín Olmedo RN - 01/11/2019 9:30 AM EDT Spoke with patient. At OSH ED, was told Cr > 3 and could not be given diuretics. Patient plans to come [facility] ED for evaluation. Could also put in referral to nephrology at . Will route to [facility] Provider for review. * Telephone Encounter - Latrice Brice MA - 01/11/2019 8:32 AM EDT Aiden called stating he was in the ED over night and he is swollen in his legs and feet, abdomen. Aiden would like to speak to his coordinator to see if he needs to come to ED or figure a plan of action to help. Will route message to ambulatory care coordinator JANA Gr to call Aiden documented in this encounter Plan of Treatment Upcoming Encounters Date Type Department Care Team (Late st Contact Info) Description 07/15/2024 9:00 AM EST Hospital Encounter [facility] Interventional Radiology [address] [place] [phone] Herve Carrillo MD 3130 [facility] 3200 Surgery [place] [phone] Scheduled Referrals Name Type Priority Associated Diagnoses Orde r Schedule Nephrology Outpatient Referral Routine S/P liver transplant (CMS-HCC) Elevated serum creatinine Ordered: 01/11/2019 documented as of this encounter Visit Diagnoses Diagnosis S/P liver transplant (CMS-HCC)- Primary Elevated serum creatinine Other nonspecific findings on examination of blood documented in this encounter Additional Health Concerns Assessment Noted Time PHQ-9 Depression Total Score: 0 12/06/19 18 3:00 PM EDT documented as of this encounter Care Teams Biology Adjunct Instructor Relationship Specialty Start Date End Date Edgar Fournier MD [address] [place] [address] [place] [address] PCP - General 08/18/17 06/23/21 Jazmín Olmedo, RN Txp Post Coordinator Transplant Hepatology 11/07/17 Jack Ordoñez MD [address] [place] [phone] Consulting Physician Transplant Hepatology 01/05/18 documented as of this encounter
--- OUTSIDE RECORDS SUMMARY | 2024-07-12 12:49 | XMS_ITS | Encounter Summary ---
Author Organization Health Address [facility] [place] [address] Care Team Providers Care Forging Operator Name Role Phone Edgar Fournier MD Primary Care Provider [phone] Maile Valles RN Unavailable Unavail able Jack Ordoñez MD Unavailable [phone] Source Comments This information has been [...] release of HIV test results or diagnoses. [id number] Encounter Details Date Type Department Care Team (Late st Contact Info) Description 02/07/2019 Orders Only [facility] [phone] Latrice Brice MA Transplanted liver ([facility]); Drug therapy Social History Tobacco Use Types [...] [facility] Interventional Radiology [address] [place] [phone] Herve Carrillo MD 3130 [facility] [address]200 [place] [phone] documented as of this encounter Visit Diagnoses Diagnosis Transplanted liver (CMS-HCC) Liver replaced by transplant Drug therapy Encounter for other specified aftercare documented in this encounter Additional Health Concerns Assessment Noted Time PHQ-9 Depression Total Score: 0 12/06/19 18 3:00 PM EDT documented as of this encounter Care Teams Forging Operator Relationship Specialty Start Date End Date Edgar Fournier MD [address] [place] [address] [place] [address] PCP - General 08/18/17 06/23/21 Maile Valles, RN Txp Post Coordinator Transplant Hepatology 11/07/17 Jack Ordoñez MD [address] [place] [phone] Consulting Physician Transplant Hepatology 01/05/18 documented as of this encounter
--- OUTSIDE RECORDS SUMMARY | 2024-07-12 12:49 | XMS_ITS | Encounter Summary ---
Author Organization Health Address [address] [place] [address] Care Team Providers Care Mail Caller Name Role Phone Edgar Fournier MD Primary Care Provider [phone] Maile Valles RN Unavailable Unavail able Jack Ordoñez MD Unavailable [phone] Source Comments This information has been [...] release of HIV test results or diagnoses. [id number] Health Encounter Details Date Type Department Care Team (Late st Contact Info) Description 02/12/2019 10:00 AM EDT Follow-Up [facility] Liver Transplant at Outpatient Pavilion [address] [place] [address] Rajwinder Polanco [address] [facility] [address] [place] [address] Social History Tobacco Use Types [...] Sign Reading Time Taken Comments Blood Pressure 143/83 02/12/2019 7:00 AM EDT Pulse 71 02/12/2019 7:00 AM EDT Temperature 36.7 ??C (98 ??F) 02/12/2019 7:00 AM EDT Respiratory Rate 18 02/12/2019 7:00 AM EDT Oxygen Saturation 94% 02/12/2019 7:00 AM EDT Inhaled Oxygen Concentration 94% 02/12/2019 7 :00 AM EDT Weight 127.9 kg (282 lb) 02/12/2019 7:00 AM EDT Height 170.2 cm (5' 7 ) 02/12/2019 7:00 AM EDT Body Mass Index 44.17 02/12/2019 7:00 AM EDT documented in this encounter Progress Notes * Melvin Petty MA - 02/12/2019 10:00 AM EDT Review of Systems Constitutional: Negative. HENT: Negative. Eyes: Negative. Respiratory: Negative. Cardiovascular: Negative. Gastrointestinal: Positive for nausea. Genitourinary: Negative. Musculoskeletal: Negative. Skin: Negative. Endo/Heme/Allergies: Negative. Psychiatric/Behavioral: Negative. Patient stated his belly is staring to hard and swell believe it is because of fluid * Rajwinder Polanco - 02/12/2019 10:00 AM EDT [facility] Follow-up Visit Consulting Physician: Primary Care Provider: Edgar Fournier MD Date of Appt: 02/12/2019 Last Appt: Reason for Follow-up: CKD/nephrotic syndrome Subjective: Chief Complaint: Presentation History: Aiden Stauffer is a 43 y.o. 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 Recently admitted for CARMEN vs progressive CKD and proteinuria. Biopsy was offered but refused by pt due to high risk of complications. Serological work up sent and is negative/pending (PLA2R) till date except for faint band on SPEP . He is being seen for CKD management/kidney transplant eligibility. Interval History: Reports increased abd distension and abd wall edema. He himself lowered the dose of torsemide to 20mg every other day. No significant swelling of lower ext. ROS Pertinent findings documented in the HPI. GENERAL: No malaise or fevers HEENT: Negative for frequent or significant headaches, No changes in hearing or vision, no nose bleeds or other nasal problems NECK: Negative for lumps, pain and significant neck swelling RESPIRATORY: Negative for cough, hemoptysis, wheezing or shortness of breath CARDIOVASCULAR: denies chest pain, palpitations, has increased lower ext swelling GI: has nausea, NO vomiting, or diarrhea : no dysuria, frequency or urgency MUSCULOSKELETAL: no arthritis SKIN: Negative for lesions, rash, and itching PSYCH: Negative for sleep disturbance, mood disorder and recent psychosocial stressors HEMATOLOGY/LYMPHOLOGY: Negative for prolonged bleeding, bruising easily or swollen nodes ENDOCRINE: Negative for cold or heat intolerance, polyuria, polydipsia and goiter NEURO: No history of headaches, syncope, paralysis, seizures or tremors All other reviewed and negative other than HPI Past Medical History: Past Medical History: Diagnosis Date ??? Acute pancreatitis ??? Ascites ??? Diabetes mellitus (CMS Dx) ??? Esophageal varices with bleeding (CMS Dx) ??? GERD (gastroesophageal reflux disease) ??? Hepatic encephalopathy (CMS Dx) ??? Hypertension ??? 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 Vitamin D deficiency Updated 02/12/2019 Past Surgical History: Past Surgical History: Procedure [...] TIPS PROCEDURE 10/2016 ??? TIPS Revision 04/2017 Updated 02/12/2019 Medications: Home Meds: Previous Medications ASPIRIN 81 MG CHEWABLE TABLET Chew 1 tablet (81 mg total) by mouth daily with breakfast. BLOOD SUGAR DIAGNOSTIC STRP Use to test blood sugar up to 4 times a day. Diagnosis for use: E 9.65.For use with One Touch Verio meters. BLOOD-GLUCOSE METER (ONETOUCH VERIO SYSTEM) [facility] Use as instructed. CARBAMAZEPINE (TEGRETOL) 200 MG TABLET Take 200 mg by mouth at bedtime. CARVEDILOL (COREG) 25 MG TABLET Take 2 tablets (50 mg total) by mouth 2 times a day with meals. CLONIDINE HCL (CATAPRES) 0.1 MG TABLET Take 1 tablet (0.1 mg total) by mouth if needed. DOXAZOSIN (CARDURA) 8 MG TABLET 8 mg 2 times a day. ENTECAVIR (BARACLUDE) 0.5 MG TABLET Take 1 tablet (0.5 mg total) by mouth every other day. ERGOCALCIFEROL (VITAMIN D2) 50,000 UNIT CAPSULE Take 50,000 Units by mouth once a week. FAMOTIDINE (PEPCID) 20 MG TABLET Take 20 mg by mouth daily. GABAPENTIN (NEURONTIN) 100 MG CAPSULE Take 2 capsules (200 mg total) by mouth 3 times a day. INSULIN GLULISINE U-100 (APIDRA U-100 INSULIN) 100 UNIT/ML INJECTION Inject 5 Units subcutaneously 3 times a day with meals. INSULIN NPH ISOPH U-100 HUMAN (HUMULIN N NPH INSULIN KWIKPEN) 100 UNIT/ML (3 ML) INPN Inject subcutaneously 15 units in the AM and 15 units in the PM. LANCETS (ONETOUCH DELICA LANCETS) 33 GAUGE [facility] Use 1 strip as directed 4 times [...] use with insulin pen. Use as instructed. POLYETHYLENE GLYCOL (MIRALAX) 17 GRAM PACKET Take 17 g by mouth 2 times a day as needed. TACROLIMUS (ENVARSUS XR) 1 MG TB24 Take 2 mg by mouth daily. TORSEMIDE (DEMADEX) 20 MG TABLET Take 1 tablet (20 mg total) by mouth daily. Allergies: Allergies Allergen Reactions ??? Codeine Sulfate Hyper ??? Codeine Other (See Comments) Becomes hyper Social history: Social History Substance Use Topics ??? Smoking status: Never Smoker ??? Smokeless tobacco: Never Used ??? Alcohol use No Updated 02/12/2019 Family history: Family History Problem Relation Age of Onset ??? Diabetes Sister Updated 02/12/2019 Objective: @VSRANGES@ Wt Readings from Last 3 Encounters: 02/12/19 (!) 282 lb (127.9 kg) 01/17/19 (!) 286 lb 14.4 oz (130.1 kg) 12/13/18 (!) 286 lb (129.7 kg) Physical Exam Updated 02/12/2019 Vitals - 1 value per visit 02/12/2019 SYSTOLIC 143 DIASTOLIC 83 PULSE 71 TEMPERATURE 98 SPO2 94 RESPIRATIONS 18 Weight (lb) 282 HEIGHT 5' 7 BODY MASS INDEX 44.17 BODY SURFACE AREA 2.46 PAIN SCALE - SCORE 0 Vitals Taken By VISIT REPORT Laboratory Data: Lab Results Component Value Date NA 136 02/12/2019 K 5.4 (H) 02/12/2019 CL 105 02/12/2019 BUN 45 (H) 02/12/2019 BUN 45 (H) 01/17/2019 BUN 42 (H) 01/16/2019 BUN 38 (H) 01/15/2019 CREATININE 3.35 (H) 02/12/2019 CREATININE 3.98 (H) 01/17/2019 CREATININE 3.83 (H) 01/16/2019 CREATININE 3.61 (H) 01/15/2019 GLUCOSE 123 (H) 02/12/2019 CALCIUM 8.6 02/12/2019 MG 2.0 01/17/2019 PHOS 4.6 02/12/2019 ALBUMIN 3.8 02/12/2019 ALBUMIN 3.8 02/12/2019 Lab Results Component Value Date PTH 164.0 (H) 01/14/2019 CALCIUM 8.6 02/12/2019 CALCIUM 8.1 (L) 01/17/2019 CALCIUM 8.1 (L) 01/16/2019 PHOS 4.6 02/12/2019 PHOS 4.8 (H) 01/17/2019 PHOS 4.9 (H) 01/16/2019 Lab Results Component Value Date VDVV48Q 15.8 (L) 01/14/2019 HHJL50S 38.3 01/02/2018 Lab Results Component Value Date WBC 5.2 02/12/2019 HGB 10.9 (L) 02/12/2019 HGB 9.5 (L) 01/15/2019 HGB 9.1 (L) 01/14/2019 HCT 31.3 (L) 02/12/2019 MCV 84.6 02/12/2019 PLT See note 02/12/2019 HGBA1C 7.4 (H) 12/13/2018 Lab Results Component Value Date COLORU Yellow 01/12/2019 CLARITYU Clear 01/12/2019 PROTEINUA >=300 mg/dL (A) 01/12/2019 PHUR 6.0 01/12/2019 LABSPEC 1.025 01/12/2019 GLUCOSEU 100 mg/dL (A) 01/12/2019 BLOODU Moderate (A) 01/12/2019 LEUKOCYTESUR Negative 01/12/2019 NITRITE Negative 01/12/2019 BILIRUBINUR Negative 01/12/2019 UROBILINOGEN 0.2 E.U./dL 01/12/2019 RBCUA 5 (H) 01/12/2019 WBCUA 2 01/12/2019 BACTERIA Rare (A) 01/12/2019 Lab Results Component Value Date NAUR 82 01/12/2019 KUR 35.2 01/12/2019 CLUR 83 01/12/2019 No results found for: MICROALBUR, [id number] No results found for: SPEP, UPEP Radiology: No orders to display Biopsy: CKD Health Maintenance (43 y.o.,male) - [email or web address]://epss.bannerq.gov/ePSS/search.jsp ROUTINE LABORATORY SCREENING Hepatitis C Lab Results Component Value Date HCVAB Nonreactive 10/08/2017 HgbA1c Lab Results Component Value Date HGBA1C 7.4 (H) 12/13/2018 HIV No results found for: HIV1X2, RPV3Y0SS, LABHIV1 Autoimmune Lab Results Component Value Date C3 133 01/12/2019 C4 39 01/12/2019 TSH Lab Results Component Value Date TSH 2.02 12/20/2017 The 10-year ASCVD risk score (Bearclare WAN Jr., et al., 2013) is: 15.9% Values used to calculate the score: Age: 43 years Sex: Male Is Non- : No Diabetic: Yes Tobacco smoker: No Systolic Blood Pressure: 143 mmHg Is BP treated: Yes HDL Cholesterol: 28 mg/dL Total Cholesterol: 262 mg/dL Statin? Yes/No VACCINES - (Flu, TDAP, PCV23 in >65 & DM, Zostervax, HBV) There is no immunization history on file for this patient. Cancer Screening (Colonoscopy (>50, <=q10y), PAP (21-65 q3y), Mammogram (50-74 q2y)) No results found for: HMCOLON No results found for: HMSIGMOIDOSC No results found for: HMPAP No results found for: HMMAMMO DEXA (women aged 65-80) No results found for: HMDEXASCAN Diabetic Foot Exam No results found for: HMDIABFOOTEX Diabetic Eye Exam No results found for: HMDIABEYEEX In addition to the above, I have reviewed an extensive amount of complex data. Assessment & Plan: Aiden Stauffer is a 43 y.o. male with significant history of OLT and nephrotic syndrome is here for follow up after recent admission 1. Nephrotic syndrome : advised to switch torsemide to 10 mg every day. UPC of 7. Not sure if [id number] pending from inpatient admission or was never sent out. Etiology unknown. HbA1c in epic been in the target range. Hard to comment on etiology without biopsy. A SPEP should be repeat in near future. Unable to add RAAS due to K being on higher side 2. HTN : at target 3. BMD : hyperparathyroidism, Ca, phos at goal 4. Hyperkalemia : diet control for now 5. Anemia of CKD : iron studies acceptable, Hb at target. Hold MINERVA 6. Transplant eval : ineligible due to BMI, pt is working on it. Given goal for <250 lbs. He hasliving donors. Follow up : has appointment coming up with general nephrology. Changes from last visit: Change torsemide to 10 mg everyday Pre-visit planning completed. Discussed self management and treatment goals with patient. Barriers to meeting these goals were discussed. Information regarding the usage and side effects of any new medication(s) were provided. Future Appointments Date Time Provider Department Center 02/28/2019 1:00 PM RENAL FELLOW [facility] 03/14/2019 1:35 PM Jack Ordoñez MD [facility] OP Thank you for your referral. Today I had the pleasure of seeing Aiden Stauffer. See above for my assessment and plan. If you have any questions let me know. 02/12/2019, 12:38 PM documented in this encounter Plan of Treatment Upcoming Encounters Date Type Department Care Team (Late st Contact Info) Description 07/15/2024 9:00 AM EST Hospital Encounter [facility] Interventional Radiology [address] [place] [phone] Herve Carrillo MD [address] [facility] [address] [place] [phone] documented as of this encounter Visit Diagnoses Not on filedocumented in this encounter Additional Health Concerns Assessment Noted Time PHQ-9 Depression Total Score: 0 12/06/19 18 3:00 PM EDT documented as of this encounter Care Teams Mail Caller Relationship Specialty Start Date End Date Edgar Fournier MD [address] [place] [address] [place] [address] PCP - General 08/18/17 06/23/21 Maile Valles, RN Txp Post Coordinator Transplant Hepatology 11/07/17 Jack Ordoñez MD [address] [place] [phone] Consulting Physician Transplant Hepatology 01/05/18 documented as of this encounter
--- OUTSIDE RECORDS SUMMARY | 2024-07-12 12:50 | XMS_ITS | Encounter Summary ---
Author Organization Health Address [facility] [place] [address] Care Team Providers Care Magician/Illusionist Name Role Phone Edgar Fournier MD Primary Care Provider [phone] Maile Valles RN Unavailable Unavail able Jack Ordoñez MD Unavailable [phone] Source Comments This information has been [...] release of HIV test results or diagnoses. [id number] [facility] Encounter Details Date Type Department Care Team (Late st Contact Info) Description 10/18/[address] [facility] Liver Transplant at Outpatient [address] [address] Latrice Brice MA Social History [...] Telephone Encounter - Latrice Brice MA - 10/18/2018 10:18 AM EST This MA spoke with Aiden regarding standing labs. Aiden is going beginning of next week 10-22-18 to get standing labs. Will route message to community service coordinator JANA Gr documented in this encounter Plan of Treatment Upcoming Encounters Date Type Department Care Team (Late st Contact Info) Description 07/15/2024 9:00 AM EST Hospital Encounter [facility] Interventional Radiology [address] [place] [phone] Herve Carrillo MD [address] [facility] [address] Surgery [place] [phone] documented as of this encounter Visit Diagnoses Not on filedocumented in this encounter Additional Health Concerns Assessment Noted Time PHQ-9 Depression Total Score: 0 12/06/19 18 3:00 PM EDT documented as of this encounter Care Teams Magician/Illusionist Relationship Specialty Start Date End Date Edgar Fournier MD [address] [place] [address] [place] [address] PCP - General 08/18/17 06/23/21 Maile Valles, JANA Txp Post Coordinator Transplant Hepatology 11/07/17 Jack Ordoñez MD [address] [place] [phone] Consulting Physician Transplant Hepatology 01/05/18 documented as of this encounter
--- OUTSIDE RECORDS SUMMARY | 2024-07-12 12:50 | XMS_ITS | Encounter Summary ---
Author Organization Health Address [facility] [place] [address] Care Team Providers Care Qc Lab Technician Name Role Phone Edgar Fournier MD Primary Care Provider [phone] Maile Valles RN Unavailable Unavail able Jack Ordoñez MD Unavailable [phone] Source Comments This information has been [...] release of HIV test results or diagnoses. [id number] [facility] Encounter Details Date Type Department Care Team (Late st Contact Info) Description 10/30/2018 Telephone [facility] Liver Transplant at Outpatient [address] [address] Latrice Brice MA Social History [...] Telephone Encounter - Maile Valles RN - 10/31/2018 11:05 AM EDT Need renal panel and FK level before any recommendations can be made. * Telephone Encounter - Latrice Brice MA - 10/30/2018 2:40 PM EDT This MA spoke with Aiden regarding missing renal panel from standing labs. Aiden stated he would goback for renal panel. Aiden stated he would like his coordinator JANA Gr to call him with recent lab results. Will route message to implant coordinator JANA Gr documented in this encounter Plan of Treatment Upcoming Encounters Date Type Department Care Team (Late st Contact Info) Description 07/15/2024 9:00 AM EST Hospital Encounter [facility] Interventional Radiology [address] [place] [phone] Herve Carrillo MD [address] [facility] [address] [place] [phone] documented as of this encounter Visit Diagnoses Not on filedocumented in this encounter Additional Health Concerns Assessment Noted Time PHQ-9 Depression Total Score: 0 12/06/19 18 3:00 PM EDT documented as of this encounter Care Teams Qc Lab Technician Relationship Specialty Start Date End Date Edgar Fournier MD [address] [place] [address] [place] [address] PCP - General 08/18/17 06/23/21 Maile Valles, RN Txp Post Coordinator Transplant Hepatology 11/07/17 Jack Ordoñez MD [address] [place] [phone] Consulting Physician Transplant Hepatology 01/05/18 documented as of this encounter
--- OUTSIDE RECORDS SUMMARY | 2024-07-12 12:50 | XMS_ITS | Encounter Summary ---
Author Organization Health Address [facility] [place] [address] Care Team Providers Care Radar Signal Processing Engineer Name Role Phone Edgar Fournier MD Primary Care Provider [phone] Maile Valles RN Unavailable Unavail able Jack Ordoñez MD Unavailable [phone] Source Comments This information has been [...] release of HIV test results or diagnoses. [id number] [facility] Encounter Details Date Type Department Care Team (Late st Contact Info) Description 10/12/2018 Chart Note [facility] [place] [place] [phone] Maile Valles, JANA TIEDI updated. Social History Tobacco Use Types Packs/Day Years [...] Progress Notes * Maile Valles RN - 10/12/2018 4:00 PM EST TIEDI updated. documented in this encounter Plan of Treatment Upcoming Encounters Date Type Department Care Team (Late st Contact Info) Description 07/15/2024 9:00 AM EST Hospital Encounter [facility] Interventional Radiology [address] [place] [phone] Herve Carrillo MD [address] [facility] [address] [place] [phone] documented as of this encounter Visit Diagnoses Not on filedocumented in this encounter Additional Health Concerns Assessment Noted Time PHQ-9 Depression Total Score: 0 12/06/19 18 3:00 PM EDT documented as of this encounter Care Teams Radar Signal Processing Engineer Relationship Specialty Start Date End Date Edgar Fournier MD [address] [place] [address] [place] [address] PCP - General 08/18/17 06/23/21 Maile Valles, RN Txp Post Coordinator Transplant Hepatology 11/07/17 Jack Ordoñez MD [address] [place] [phone] Consulting Physician Transplant Hepatology 01/05/18 documented as of this encounter
--- OUTSIDE RECORDS SUMMARY | 2024-07-12 12:50 | XMS_ITS | Encounter Summary ---
Author Organization [facility] Address [address] [place] [id number] Care Team Providers Care Photoengraving Finisher Name Role Phone Edgar Fournier MD Primary Care Provider [phone] Maile Valles RN Unavailable Unavail able Jack Ordoñez MD Unavailable [phone] Source Comments This information has been [...] release of HIV test results or diagnoses. SOL3436.24 Health Reason for Visit * Auth/Cert Specialty Diagnoses / Procedures Referred By Contac t Referred To Contact Cardiology Diagnoses CHEST PAIN, ABNORMAL STRESS TEST 411.1 (ICD-9-CM) - I20.0 (ICD-10-CM) - Unstable angina pectoris (CMS Dx) 794.39 (ICD-9-CM) - R94.39 (ICD-10-CM) - Abnormal stress test V42.7 (ICD-9-CM) - Z94.4 (ICD-10-CM) - S/P liver transplant (CMS Dx) Procedures RHC/LHC 66398 (CPT??) - MT R & L HRT CATH WINJX HRT ART& L VENTR IMG [facility] Cardiac Landscaping Crew Leader [address] [place] [address] Phone: tel: Referral ID Status Reason Start Date Expiration Date Visits Re quested Visits Authorized [id number] 1 1 Encounter Details Date Type Department Care Team (Late st Contact Info) Description 06/05/2018 1:00 PM EDT - 06/05/2018 2:12 PM EDT Surgery [facility] Cardiac Landscaping Crew Leader [address] [place], [place] [address] [address] Jay Talley MD [address] [place] [address] [place] [address] Left and Right Heart Cath abnormal stress test chest pain PT LIVES >1 HOUR AWAY; HAS NOT EATEN SINCE 12 AM DAY PRIOR s/p liver transplant Surgery Details Date/Time Status Location OR Service Patient Class Case Class Case Type Trauma Case? 06/05/2018 1:00 PM Posted CARDIAC CATH LABS CATH 01 Cath Hosp OP Surg/Ambula tory Panel 1 Procedure LRB Anes Op Region Wound Class Comments Left and Right Heart Cath abnormal stress test chest pain PT LIVES >1 HOUR AWAY; HAS NOT EATEN SINCE 12 AM DAY PRIOR s/p liver transplant N/A Moderate Sedation Surgeon Surgeon Role Service Panel Jay Talley MD Primary Cath 1 documented in this [...] Sign Reading Time Taken Comments Blood Pressure 181/96 06/05/2018 12:21 PM EDT Pulse 75 06/05/2018 12:21 PM EDT Temperature 36.7 ??C (98 ??F) 06/05/2018 12: 13 PM EDT Respiratory Rate - - Oxygen Saturation 99% 06/05/2018 12: 21 PM EDT Inhaled Oxygen Concentration 99% 12:21 PM EDT Weight 127.7 kg (281 lb 9.6 oz) 018 12:13 PM EDT Height 170.2 cm (5' 7 ) 06/05/2018 12:1 3 PM EDT Body Mass Index 44.1 06/05/2018 12:13 PM EDT documented in this encounter Discharge Instructions * Discharge Instructions* Sussy Moody RN - 06/05/2018 4:16 PM EDT Radial Site Care Refer to this sheet in the next few weeks. These instructions provide you with information about caring for yourself after your procedure. Your health care provider may also give you more specific instructions. Your treatment has been planned according to current medical practices, but problems sometimes occur. Call your health care provider if you have any problems or questions after your procedure. What can I expect after the procedure? After your procedure, it is typical to have the following: ?? Bruising at the radial site that usually fades within 1-2 weeks. ?? Blood collecting in the tissue (hematoma) that may be painful to the touch. It should usually decrease in size and tenderness within 1-2 weeks. Follow these instructions at home: ?? Take medicines only as directed by your health care provider. ?? You may shower 24-48 hours after the procedure or as directed by your health care provider. Remove the bandage (dressing) and gently wash the site with plain soap and water. Pat the area dry with a clean towel. Do not rub the site, because this may cause bleeding. ?? Do not take baths, swim, or use a hot tub until your health care provider approves. ?? Check your insertion site every day for redness, swelling, or drainage. ?? Do not apply powder or lotion to the site. ?? Do not flex or bend the affected arm for 24 hours or as directed by your health care provider. ?? Do not push or pull heavy objects with the affected arm for 24 hours or as directed by your health care provider. ?? Do not lift over 10 lb (4.5 kg) for 5 days after your procedure or as directed by your health care provider. ?? Ask your health care provider when it is okay to: ?? Return to work or school. ?? Resume usual physical activities or sports. ?? Resume sexual activity. ?? Do not drive home if you are discharged the same day as the procedure. Have someone else drive you. ?? You may drive 24 hours after the procedure unless otherwise instructed by your health care provider. ?? Do not operate machinery or power tools for 24 hours after the procedure. ?? If your procedure was done as an outpatient procedure, which means that you went home the same day as your procedure, a responsible adult should be with you for the first 24 hours after you arrivehome. ?? Keep all follow-up visits as directed by your health care provider. This is important. Contact a health care provider if: ?? You have a fever. ?? You have chills. ?? You have increased bleeding from the radial site. Hold pressure on the site. Get help right away if: ?? You have unusual pain at the radial site. ?? You have redness, warmth, or swelling at the radial site. ?? You have drainage (other than a small amount of blood on the dressing) from the radial site. ?? The radial site is bleeding, and the bleeding does not stop after 30 minutes of holding steady pressure on the site. ?? Your arm or hand becomes pale, cool, tingly, or numb. This information is not intended to replace advice given to you by your health care provider. Make sure you discuss any questions you have with your health care provider. Jugular Site Care Keep clean and dry [...] if you have a temperature over 101. FOR ANY QUESTIONS PLEASE CALL [phone]. THANK YOU! documented in this encounter Medications at Time of Discharge aspirin 81 MG chewable tablet Chew 1 tablet (81 mg total) by mouth daily with breakfast. 30 tablet 5 8 doxazosin (CARDURA) 8 MG tablet Take 1 tablet (8 mg total) by mouth at bedtime. 8 NIFEdipine (PROCARDIA-XL) 90 MG (OSM) 24 hr tablet Take 1 tablet (90 mg total) by mouth if needed. 8 amLODIPine (NORVASC) 10 MG tablet Take 10 mg by mouth daily. 09/13/19 19 blood sugar diagnostic Str Use to test blood sugar up to 4 times a day. Diagnosis for use: E 9.65. For use with One Touch Verio meters. 150 strip 5 8 03/18/20 22 blood-glucose meter (EBDSoft VERIO SYSTEM) [facility] Use as instructed. 1 each 8 03/18/20 22 carvedilol (COREG) 25 MG tablet Take 2 tablets (50 mg total) by mouth 2 times a day with meals. 120 tablet 5 8 03/12/20 20 cloNIDine HCl (CATAPRES) 0.1 MG tablet Take 0.1 mg by mouth if needed. 01/18/20 19 diazePAM (VALIUM) 10 MG tablet 8 09/13/19 19 doxazosin (CARDURA) 2 MG tablet Take 8 mg by mouth at bedtime. 09/13/19 19 entecavir (BARACLUDE) 1 MG tablet Take 1 tablet (1 mg total) by mouth daily. 30 tablet 11 8 10/27/19 19 EPITOL 200 mg tablet 8 09/13/19 19 ergocalciferol (ERGOCALCIFEROL) 1,250 mcg (50,000 unit) capsule Take 50,000 Units by mouth every Monday, , and Monday. 03/18/20 22 esomeprazole (NEXIUM) 40 MG capsule 8 09/13/19 19 gabapentin (NEURONTIN) 600 MG tablet Take 800 mg by mouth 3 times a day. Taking 800mg in the AM, 1200mg at 6pm, and then 800mg at 9pm 01/18/20 19 gabapentin (NEURONTIN) 800 MG tablet 8 09/13/19 19 insulin glulisine U-100 (APIDRA U-100 INSULIN) 100 unit/mL injection Inject 2-4 Units subcutaneously 3 times a day with meals. 01/18/20 19 insulin NPH isoph U-100 human (HUMULIN N NPH INSULIN KWIKPEN) 100 unit/mL (3 mL) InPnIndications:S/P liver transplant ([facility]),Hyperglyc emia Inject subcutaneously 50 units in the AM and 17 units in the PM. 15 mL 5 8 01/18/20 19 lancets (ONETOUCH DELICA LANCETS) 33 gauge Misc Use 1 strip as directed 4 times daily before meals and at bedtime. 150 each 8 03/18/20 22 mycophenolate (CELLCEPT) 250 mg capsuleIndications: S/P liver transplant ([facility]),Immunosup pression ([facility]) Take 3 capsules (750 mg total) by mouth 2 times a day. 180 capsule 5 8 11/27/19 19 NIFEdipine (ADALAT CC) 90 MG 24 hr tablet 8 09/13/19 19 ondansetron (ZOFRAN-ODT) 4 MG disintegrating tablet Take 1 tablet (4 mg total) by mouth every 8 hours as needed. 8 04/28/20 24 pen needle, diabetic 32 gauge x 5/32 Ndle Use as directed to inject insulin 4 times daily. 150 each 8 03/18/20 22 pen needle, diabetic 32 gauge x 5/32 Ndle For use with insulin pen. Use as instructed. 150 each 8 11/11/19 20 tacrolimus (ENVARSUS XR) 1 mg [id number]:S/P liver transplant ([facility]),Immunosup pression ([facility]) Take 2 mg by mouth daily. 60 tablet 8 10/17/19 19 documented as of this encounter Progress Notes * Sussy Moody RN - 06/05/2018 6:21 PM EDT D: Patient being discharged to home with no further problems. Discharge paperwork reviewed with patient at bedside for full understanding. ?? A: Discharge paperwork was verbally understood and signed by patient and nurse as well. IV was taken out with no further complications to patient. Right radial and R IJ site were checked and unremarkable. No bleeding, no hematoma present. ?? R: Patient taken down to discharge area via wheelchair * Sussy Moody RN - 06/05/2018 5:00 PM EDT Pt's TR band removed. Site is CDI no bleeding no hematoma. New dressing applied to site. Pt reminded of activity restrictions. Will continue to monitor. * Sussy Moody RN - 06/05/2018 4:00 PM EDT Pt's 6fr IJ sheath removed. Manual pressure applied for a total of 10 mins. New dressing applied. Site is CDI no bleeding no hematoma. Will continue to monitor. * Padma Montgomery MD - 06/05/2018 3:21 PM EDT Cardiology Post Procedure Sedation Note Patient: Aiden Stauffer Procedure(s) Performed: [facility] Anesthesia type: Moderate IV Patient location: Cardiac Landscaping Crew Leader Post pain: Adequate analgesia Post assessment: no apparent anesthetic complications and tolerated procedure well Last Vitals: Vitals: 06/05/18 1221 BP: (!) 181/96 Pulse: 75 Temp: SpO2: 99% Post vital signs: stable Level of consciousness: awake, alert and oriented Complications: None Padma Montgomery MD Travel Services Professional Cosigned by Jay Talley MD at 06/16/2018 8:28 PM EDT Associated attestation - Jay Talley MD - 06/16/2018 8:28 PM EDT Patient seen, examined and discussed with fellow. Agree with above plan. Jay Talley MD Cardiology Interventional Cardiology * Sussy Moody RN - 06/05/2018 3:12 PM EDT Pt returned from CCL s/p C. Bedside report received from JANA Turcios. Pt placed on telemetry, serial vital signs set up. Access site: R radial and R IJ. Site is soft, nobleeding/hematoma, TR band in place with 12 mls of air and R 6fr IJ in place. Pt A&Ox3, SR per tele, VSS. Pt instructed on plan of care; bedrest x 2 hours, frequent site monitoring,?? & continuous telemetry and vitals. Pt educated on HOB < 30 degrees, keeping R arm straight, no bending or lifting. Also encouraged pt to call RN immediately with any new or increased pain, shortness of breath, bleeding, numbness/tingling, or swelling. Pt verbalized understanding. Call light placed within reach. Denies any needs/concerns at this time. Will monitor closely. documented in this encounter H&P Notes * Padma Montgomery MD - 06/05/2018 1:52 PM EDT Cardiology Pre procedural Sedation Assessment Note Pre- procedure Diagnosis --- Abnormal stress test and pulmonary hypertension [facility] and no changes NPO status verified Allergies Allergen Reactions ??? Codeine Other (See Comments) Becomes hyper No current facility-administered medications on file prior to encounter. Current Outpatient Prescriptions on File Prior to Encounter Medication Sig Dispense Refill ??? aspirin 81 MG chewable tablet Chew 1 tablet (81 mg total) by mouth daily with breakfast. 30 tablet 5 ??? carvedilol (COREG) 25 MG tablet Take 2 tablets (50 mg total) by mouth 2 times a day with meals.120 tablet 5 ??? cloNIDine HCl (CATAPRES) 0.1 MG tablet Take 0.1 mg by mouth if needed. ??? doxazosin (CARDURA) 2 MG tablet Take 8 mg by mouth at bedtime. ??? entecavir (BARACLUDE) 1 MG tablet Take 1 tablet (1 mg total) by mouth daily. 30 tablet 11 ??? gabapentin (NEURONTIN) 600 MG tablet Take 1,200 mg by mouth 3 times a day. ??? gabapentin (NEURONTIN) 800 MG tablet ??? mycophenolate (CELLCEPT) 250 mg capsule Take 3 capsules (750 mg total) by mouth 2 times a day. 180 capsule 5 ??? ondansetron (ZOFRAN-ODT) 4 MG disintegrating tablet ??? tacrolimus (ENVARSUS XR) 1 mg Tb24 Take 2 mg by mouth daily. 60 tablet 5 ??? amLODIPine (NORVASC) 10 MG tablet Take 10 mg by mouth daily. ??? blood sugar diagnostic Str Use to test blood sugar up to 4 times a day. Diagnosis for use: E 9.65. For use with One Touch Verio meters. 150 strip 5 ??? blood-glucose meter (EBDSoft VERIO SYSTEM) [facility] Use as instructed. 1 each 0 ??? diazePAM (VALIUM) 10 MG tablet ??? doxazosin (CARDURA) 8 MG tablet ??? EPITOL 200 mg tablet ??? ergocalciferol (VITAMIN D2) 50,000 unit capsule Take 50,000 Units by mouth once a week. ??? esomeprazole (NEXIUM) 40 MG capsule ??? insulin glulisine U-100 (APIDRA U-100 INSULIN) [...] PM. ) 15 mL 5 ??? lancets ([employer] Payments CompanyTOUCH DELICA LANCETS) 33 gauge [facility] Use 1 strip as directed 4 times daily before meals and at bedtime. 150 each 5 ??? NIFEdipine (ADALAT CC) 90 MG 24 hr tablet ??? NIFEdipine (PROCARDIA-XL) 90 MG (OSM) 24 hr tablet ??? pen needle, diabetic 32 gauge x 5/32 Ndle Use as directed to inject insulin 4 times daily. 150each 5 ??? pen needle, diabetic 32 gauge x 5/32 Ndle For use with insulin pen. Use as instructed. 150 each 5 Past Medical History: Diagnosis Date ??? Acute pancreatitis ??? Ascites ??? Diabetes mellitus ([facility] Dx) ??? Esophageal varices with bleeding (CMS Dx) ??? GERD (gastroesophageal reflux disease) ??? Hepatic encephalopathy (CMS Dx) ??? Hypertension ??? 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 Vitamin D deficiency Nursing history and assessment - reviewed Physical Examination Vitals: 06/05/18 1221 BP: (!) 181/96 Pulse: 75 Temp: SpO2: 99% General appearance - AAOX3 Chest - clear to auscultation Heart - Regular heart sounds Neck - No JVD Lab Results Component Value Date CREATININE 1.89 (H) 06/05/2018 BUN 33 (H) 06/05/2018 NA 142 06/05/2018 K 4.6 06/05/2018 CL 108 06/05/2018 CO2 24 06/05/2018 Lab Results Component Value Date WBC 4.1 06/05/2018 HGB 9.4 (L) 06/05/2018 HCT 27.7 (L) 06/05/2018 MCV 91.7 06/05/2018 PLT 188 06/05/2018 Lab Results Component Value Date INR 1.1 06/05/2018 INR 1.3 (H) 10/10/2017 INR 1.3 (H) 10/10/2017 PROTIME 14.2 06/05/2018 PROTIME 16.1 (H) 10/10/2017 PROTIME 16.5 (H) 10/10/2017 Michael's Test - Normal on the right side Moderate Sedation Planned anesthetic agent - Versed and Fentanyl Sedation plan, risks, benefits. Potential complications and any alternative options associated withprocedure discussed with patient. Consent obtained. Plan: Proceed with procedure Padma Montgomery MD Travel Services Professional Cosigned by Jay Talley MD at 06/05/2018 2:00 PM EDT Associated attestation - Jay Talley MD - 06/05/2018 2:00 PM EDT Patient seen, examined and discussed with fellow. Agree with above plan. Jay Talley MD Cardiology Interventional Cardiology documented in this encounter Plan of Treatment Upcoming Encounters Date Type Department Care Team (Late st Contact Info) Description 07/15/2024 9:00 AM EST Hospital Encounter [facility] Interventional Radiology [address] [place] [phone] Herve Carrillo MD [address] [place] [id number] documented as of this encounter Procedures Procedure Name Priority Date/Time Associated Diagnosis Comments CARDIAC CATH PROCEDURE LOG 06/05/2018 3:25 PM EDT LEFT AND RIGHT HEART CATHETERIZATION Routine 06/05/2018 3:19 PM EDT Unstable angina pectoris (CMS-HCC) Abnormal stress test S/P liver transplant (CMS-HCC) POCT ACTIVATED CLOTTING TIME - LR Routine 06/05/2018 3:08 PM EDT POC OXYHEMOGLOBIN Routine 06/05/2018 2:4 6 PM EDT POC OXYHEMOGLOBIN Routine 06/05/2018 2:3 3 PM EDT POC OXYHEMOGLOBIN Routine 06/05/2018 2:3 1 PM EDT APTT STAT 06/05/2018 12:15 PM EDT PROTIME-INR STAT 06/05/2018 12:15 PM EDT CBC STAT 06/05/2018 12:15 PM EDT BASIC METABOLIC PANEL STAT 06/05/2018 12:15 PM EDT ECG 12-LEAD (MUSE) STAT 06/05/2018 12 :14 PM EDT POC GLU MONITORING DEVICE Routine 06/05/2018 12:14 PM EDT documented in this encounter Results * CARDIAC CATH PROCEDURE LOG (06/05/2018 3:25 PM EDT) us Scanning Uchflm SCAN DOCS - NO RESULTS Final Res ult * LEFT AND RIGHT HEART CATHETERIZATION (06/05/2018 3:19 PM EDT) 06/05/2018 1:25 PM EDT Narrative RADNET - 06/06/2018 2:19 PM EDT * *[facility]* Cardiac Landscaping Crew Leader [address] [place] [address] CATHETERIZATION LAB STUDY Patient: ?? Stauffer, ?Age: ?43 ?Study ? 06/05/2018 ? Aiedn ?Date: Patient ?[id number] ? Gender: M ? Study ? 01:25 [...] suggesting coronary artery disease. PROCEDURE IN DETAIL: ?? Study status: ??Cardiac cath: elective. Consent: ??The risks, benefits, and alternatives to the procedure and sedation were explained to the patient and informed consent was obtai sourav. ??Fluoroscopy time: ??Fluoroscopy time: 10.3min. ??Fluoroscopy dose : ??Fluoroscopy dose: 72.8cGy. ? Location: ??Catheterization [facility] PROCEDURE: 1. ??Initial setup. The patient was [...] exchange. The sheath was exchanged for a [id number] pinnacle ?sheath. 5. ??Right heart catheterization. A 6f swan-viviana td catheter was ?advanced via the access site into the right atrium, right ?ventricle, pulmonary artery and wedge position under ?fluoroscopic guidance. 6. ??Right radial artery access. A [id number] glidesheath - slender - ?.021 sheath was advanced into the vessel. 7. ??Left heart catheterization. A 5f pigtail 145 catheter was ?advanced across the aortic valve to the left ventricle under ?fluoroscopic guidance. 8. ??Selective left coronary angiography. A [id number] tig 4.0 catheter ?was advanced into the left coronary vessel ostium under ?fluoroscopic guidance. Contrast was injected. Images were ?obtained in multiple projections. 9. ??Selective right coronary angiography. A 9ak561ip tig 4.0 ?catheter was advanced into the [...] + + + !PA pressure s/d (m) ?!5015 () ? ! + + + !PA wedge a/v (m) ? ! () ? ! + + + !LV pressure [...] + +-----+ + !Condition1:Condition 1 - ?? !FvavialN4Ipstdnjneaz!292.5!ml/min ? ! !Abelino ? ! ?! ? [...] and electronically signed by Jay Talley MD [id number] Procedure Note Jay Talley MD - 06/06/2018 * *[facility]* Cardiac Landscaping Crew Leader [address] [place] [address] CATHETERIZATION LAB STUDY Patient: Eh, Age: 43 Study 06/05/2018 Aiden Date: Patient [id number] Gender: M Study 01:25 PM ID: Time: [...] Fluoroscopy dose : Fluoroscopy dose: 72.8cGy. Location: [facility]. PROCEDURE: 1. Initial setup. The patient was brought to the laboratory in the fasting state. Surface ECG leads, blood pressure measurements, and pulse oximetric signals were monitored. 2. Skin preparation. The planned puncture sites were prepped and draped in the usual sterile manner. 3. Right internal jugular vein access. A 4f [employer] mini access kit sheath was advanced into the vessel. 4. Sheath exchange. The sheath was exchanged for a 1lo62cg pinnacle sheath. 5. Right heart catheterization. A 6f swan-viviana td catheter was advanced via the access site into the right atrium, right ventricle, pulmonary artery and wedge position under fluoroscopic guidance. 6. Right radial artery access. A [id number] glidesheath - slender - .021 sheath was advanced into the vessel. 7. Left heart catheterization. A 5f pigtail 145 catheter was advanced across the aortic valve to the left ventricle under fluoroscopic guidance. 8. Selective left coronary angiography. A [id number] tig 4.0 catheter was advanced into the left coronary vessel ostium under fluoroscopic guidance. Contrast was injected. Images were obtained in multiple projections. 9. Selective right coronary angiography. A 4fr886ig tig 4.0 catheter was advanced into the [...] + + +-----+ + !Condition1:Condition 1 - !YnbdudtO6Sajbwxaimcg!292.5!ml/min ! !Abelino ! ! ! ! + [...] +-----+-----+ !Condition1:Condition 1!PeakdPdt - LV - 7 !2 !-----! + + +-----+-----+ !Condition1:Condition 1!VDiastolic - [...] and electronically signed by Jay Talley MD [id number] [place] [id number] Final R esult [facility] Organization Address City/State/ZIP Co de Phone Number SAR[facility] * (ABNORMAL) POC Activated Clotting Time Low Range (06/05/2018 3:08 PM EDT) Activated Clotting Time, Low Range POC 175(H) 113 - 149 seconds 06/05/2018 3:16 PM EDT HEALTH LAB Comment: ACT LOW RANGE TARGET RANGES: ? Line pull ? Less than 190 or 2 consecutive ?readings at least 15 min apart ?of less than 200 seconds ? Interventional cardiology ? with GP IIb/IIIa inhibitors ?220 - 300 seconds ? Interventional cardiology ? without GP IIb/IIIa inhibitors ? Greater than 250 seconds ? Off-pump coronary artery bypass ? Do not use ? Coronary artery bypass (on pump) ?Do not use ? Bypass with aprotinin ? Do not use ? Coronary artery bypass reversal ? N/A ? Peripheral and Neuroradiology ? Up to 400 seconds ? Target ranges are suggested ranges only. ? Suggested ranges are overridden by specific physician order. 06/05/2018 3:08 PM EDT 06/05/2018 3:16 PM EDT us Fermín Schulte MD POINT OF CARE TEST ORDERABLES Fi nal Result [facility]ALTH [facility] [address] [facility] [place] [address], [facility] * (ABNORMAL) POC Oxyhemoglobin (06/05/2018 2:46 PM EDT) POC Oxyhemoglobin 85.2(L) 95 - 98 % 018 7:34 AM EDT HEALTH LAB Comment:SEE CATH REPORT FOR COMPREHENSIVE RESULTS Arterial blood specimen (specimen) 06/05/2018 2:46 PM EDT 06/07/2018 7:34 AM EDT Result Yuri Schulte MD LAB BLOOD ORDERABLES Final Resul t Performing Organization Address [facility] Co de Phone Number [facility] [address] [facility]. [address] * (ABNORMAL) POC Oxyhemoglobin (06/05/2018 2:33 PM EDT) POC Oxyhemoglobin 61.4(L) 95 - 98 % 018 7:35 AM EDT [facility] Comment:SEE CATH REPORT FOR COMPREHENSIVE RESULTS Arterial blood specimen (specimen) 06/05/2018 2:33 PM EDT 06/07/2018 7:35 AM EDT Result Yuri Schulte MD LAB BLOOD ORDERABLES Final Resul t Performing Organization Address [facility] Co de Phone Number [facility] [address] * (ABNORMAL) POC Oxyhemoglobin (06/05/2018 2:31 PM EDT) POC Oxyhemoglobin 61.1(L) 95 - 98 % 018 7:36 AM EDT [facility] Comment:SEE CATH REPORT FOR COMPREHENSIVE RESULTS Arterial blood specimen (specimen) 06/05/2018 2:31 PM EDT 06/07/2018 7:35 AM EDT Result Yuri Schulte MD LAB BLOOD ORDERABLES Final Resul t Performing Organization Address [facility] Co de Phone Number [facility] [address] * Protime-INR (06/05/2018 12:15 PM EDT) Protime 14.2 11.8 - 14.8 seconds 06/05/2018 12:48 PM EDT [facility] INR 1.1 0.9 - 1.1 06/05/2018 12:48 PM EDT [facility] Comment: RECOMMENDED THERAPEUTIC RANGES USING INR : ?Stable oral anticoagulant therapy: ? 2.0 - 3.0 ?Mechanical prosthetic heart valve: ? 2.5 - 3.5 ?Recurrent acute myocardial infarction: ? 2.5 - 3.5 Plasma specimen (specimen) 06/05/2018 12:15 PM EDT 06/05/2018 12:29 PM EDT Narrative [facility] - 06/05/2018 12:48 PM EDT If not done within 14 days Chiquita Aponte FUR [employer] HAND LAB BLOOD ORDERABLES Final Re sult Performing Organization Address [facility] Co de Phone Number [facility] [address] * APTT, No Anticoagulant (06/05/2018 12:15 PM EDT) Pathologist [facility] aPTT 28.6 25.5 - 35.0 seconds 06/05/2018 12:49 PM EDT [facility] Plasma specimen (specimen) 06/05/2018 12:15 PM EDT 06/05/2018 12:29 PM EDT Chiquita Aponte [facility] BLOOD ORDERABLES Final Re sult Performing Organization Address [facility] Co de Phone Number [facility] [address] * (ABNORMAL) Basic metabolic panel (06/05/2018 12:15 PM EDT) Sodium 142 133 - 146 mmol/L 06/05/2018 1:03 PM EDT [facility] Potassium 4.6 3.5 - 5.3 mmol/L 06/05/2018 1:03 PM EDT [facility] Chloride 108 98 - 110 mmol/L 06/05/2018 1:03 PM EDT [facility] CO2 24 21 - 33 mmol/L 06/05/2018 1:03 PM EDT [facility] Anion Gap 10 3 - 16 mmol/L 06/05/2018 1:03 PM EDT [facility] BUN 33(H) 7 - 25 mg/dL 06/05/2018 1:03 PM EDT [facility] Creatinine 1.89(H) 0.60 - 1.30 mg/dL 06/05/2018 1:03 PM EDT [facility] Glucose 138(H) 70 - 100 mg/dL 06/05/2018 1:03 PM EDT [facility] Calcium 8.9 8.6 - 10.3 mg/dL 06/05/2018 1:03 PM T [facility] Osmolality, Calculated 303 278 - 305 mOsm/kg 06/05/2018 1:03 PM EDT [facility] eGFR AA CKD-EPI 49 See note. 8 1:03 PM T [facility] Comment: As of 2015 [...] equation to estimate glomerular filtration rate. ??Jennifer Bell Maker Med. 2009:150(9):604-12 eGFR NONAA CKD-EPI 42 See note. 2017 1:03 PM T [facility] Comment: As of 2015 [...] equation to estimate glomerular filtration rate. ??Jennifer Bell Maker Med. 2009:150(9):604-12 Plasma specimen (specimen) 06/05/2018 12:15 PM EDT 06/05/2018 12:29 PM EDT Narrative [facility] - 06/05/2018 1:03 PM EDT Stat for all patients with a history of Diabetes, unless recent Creatinine level (1-7 days) is available us Chiquita Aponte [facility] BLOOD ORDERABLES Final Re sult [facility] [address] [place] [address], [facility] * (ABNORMAL) CBC (06/05/2018 12:15 PM EDT) WBC 4.1 3.8 - 10.8 10E3/uL 06/05/2018 12:39 PM EDT [facility] RBC 3.02(L) 4.20 - 5.80 10E6/uL 06/05/2018 12:39 PM EDT [facility] Hemoglobin 9.4(L) 13.2 - 17.1 g/dL 06/05/2018 12:39 PM EDT [facility] Hematocrit 27.7(L) 38.5 - 50.0 % 06/05/2018 12:39 PM EDT [facility] MCV 91.7 80.0 - 100.0 fL 06/05/2018 12:39 PM EDT [facility] MCH 31.2 27.0 - 33.0 pg 06/05/2018 12:39 PM EDT [facility] MCHC 34.0 32.0 - 36.0 g/dL 06/05/2018 12:39 PM EDT [facility] RDW 13.5 11.0 - 15.0 % 06/05/2018 12:39 PM EDT [facility] Platelets 188 140 - 400 10E3/uL 06/05/2018 12:39 PM EDT [facility] MPV 6.8(L) 7.5 - 11.5 fL 06/05/2018 12:39 PM EDT [facility] Whole blood specimen (specimen) 06/05/2018 12:15 PM EDT 06/05/2018 12:29 PM EDT Narrative [facility] - 06/05/2018 12:39 PM EDT If not done within 14 days Chiquita Aponte CNP LAB BLOOD ORDERABLES Final Re sult Performing Organization Address [facility] Co de Phone Number [facility] [address] [facility] [place] [address], [facility] * ECG 12 lead (MUSE) (06/05/2018 12:14 PM EDT) 06/05/2018 12:1 4 PM EDT Narrative MUSE - 06/06/2018 5:31 PM EDT Ventricular Rate: ??72 ??BPM Atrial Rate: ??72 ??BPM P-R Interval: ??146 ??ms QRS Duration: ??86 ??ms QT: ??422 ??ms QTc: ??462 ??ms P Madison: ??66 ??degrees R Madison: ??51 ??degrees T Madison: ??52 ??degrees Diagnosis Line: ??NORMAL SINUS RHYTHM ^ NORMAL ECG ^ COMPARED TO THE ECG OF 26-APR-2018 19:36, ^ THERE IS NO SIGNIFICANT CHANGE ^ Confirmed by JE PEREZ MD ([id number]) on 06/06/2018 5:31:30 PM us Chiquita Aponte CNP ECG ORDERABLES Final Result Performing Organization Address [facility] Co de Phone Number MUSE * (ABNORMAL) POC Glucose Monitoring Device (06/05/2018 12:14 PM EDT) POC Glucose Monitoring Device 143(H) 70 - 100 mg/dL 06/05/2018 12:20 PM EDT [facility] Blood specimen (specimen) 06/05/2018 12:14 PM EDT 06/05/2018 12:20 PM EDT Fermín Schulte MD POINT OF CARE TEST ORDERABLES Fi nal Result Performing Organization Address [facility] Co de Phone Number [facility] [address] [facility] [place] [address], [facility] documented in this encounter Visit Diagnoses Diagnosis Abnormal stress test- Primary Other nonspecific abnormal cardiovascular system function study Unstable angina pectoris (CMS-HCC) Intermediate coronary syndrome Abnormal stress test Other nonspecific abnormal cardiovascular system function study S/P liver transplant (CMS-HCC) Unstable angina pectoris (CMS-HCC) Intermediate coronary syndrome S/P liver transplant (CMS-HCC) Unstable angina pectoris (CMS-HCC) Intermediate coronary syndrome Abnormal stress test Other nonspecific abnormal cardiovascular system function study S/P liver transplant (CMS-HCC) documented in this encounter Admitting Diagnoses Diagnosis Unstable angina pectoris (CMS-HCC) Intermediate coronary syndrome Abnormal stress test Other nonspecific abnormal cardiovascular system function study S/P liver transplant (CMS-HCC) documented in this encounter Administered Medications Inactive Administered Medications - up to 3 most recent administrations Medication Order MAR Action Action Date Dose Rate Site acetaminophen (TYLENOL) 325 MG tablet Starting on Mon06/05/18 at 1249, For 1 dose, GEM SANTOS M: cabinet override Given 06/05/2018 12:51 PM EDT acetaminophen (TYLENOL) tablet 650 mg 650 mg, Oral, Once, On Mon06/05/18 at 1300, For 1 dose, Maximum dose of acetaminophen is 4000 mg (4 grams) from all sources in 24 hours. Given 06/05/2018 12:50 PM EDT 650 mg aspirin 81 MG chewable tablet Starting on Mon06/05/18 at 1219, For 1 dose, GEM SANTOS M: cabinet override Given 06/05/2018 12:21 PM EDT 243 mg fentaNYL (SUBLIMAZE) injection 25 mcg 25 mcg, Intravenous, Once, On Mon06/05/18 at 1400, For 1 dose, For Landscaping Crew Leader only. Please communicate with MD before administering the dose HIGH ALERT MEDICATIONIndications:Abnormal stress test Given 06/05/2018 2:13 PM EDT 50 mcg fentaNYL (SUBLIMAZE) injection Intra-op PRN, Starting on Mon06/05/18 at 1431, Intra-procedure(Invasive Cardiology) Given 06/05/2018 3:06 PM EDT 25 mcg Given 06/05/2018 2:31 PM EDT 25 mcg heparin (porcine) injection Intra-op PRN, Starting on Mon06/05/18 at 1447, Intra-procedure(Invasive Cardiology) Given 06/05/2018 2:47 PM EDT 4,000 Units midazolam (PF) (VERSED) injection 1 mg 1 mg, Intravenous, Once, On Mon06/05/18 at 1400, For 1 dose, For Landscaping Crew Leader only. Please communicate with MD before administering the doseIndications:Abnormal stress test Given 06/05/2018 2:13 PM EDT 1 mg midazolam (PF) (VERSED) injection Intra-op PRN, Starting on Mon06/05/18 at 1431, Intra-procedure(Invasive Cardiology) Given 06/05/2018 3:08 PM EDT 0.5 mg Given 06/05/2018 2:31 PM EDT 1 mg sodium chloride 0.9 % infusion 100 mL/hr, Intravenous, Continuous, Starting on Mon06/05/18 at 1200, Pre-Procedure(Invasive Cardiology) New Bag 06/05/2018 12:26 PM EDT 100 mL/hr 100 mL/hr verapamil (ISOPTIN) injection Intra-op PRN, Starting on Mon06/05/18 at 1443, Intra-procedure(Invasive Cardiology) Given 06/05/2018 2:43 PM EDT 2.5 mg documented in this encounter Active and Recently Administered Medications Times are shown in EDT. Scheduled Medication Order 06/03/2018 06/04/2018 06/05/2018 acetaminophen (TYLENOL) tablet 650 mg (COMPLETED) 650 mg, Oral, Once, On Mon06/05/18 at 1300, For 1 dose, Maximum dose of acetaminophen is 4000 mg (4 grams) from all sources in 24 hours. 1250 (Given - Provid er: Gem Santos RN) aspirin tablet 325 mg 325 mg, Oral, Once, On Mon06/05/18 at 1200, For 1 dose, Administer prior to procedure., Pre-Procedure(Invasive Cardiology) 1245 (Canceled Entry - Provider: Gem Santos RN) fentaNYL (SUBLIMAZE) injection 25 mcg (COMPLETED) 25 mcg, Intravenous, Once, On Mon06/05/18 at 1400, For 1 dose, For Landscaping Crew Leader only. Please communicate with MD before administering the dose HIGH ALERT MEDICATION 1400 (Due)1413 (Give n - Provider: Ronald Bernal RN) midazolam (PF) (VERSED) injection 1 mg (COMPLETED) 1 mg, Intravenous, Once, On Mon06/05/18 at 1400, For 1 dose, For Landscaping Crew Leader only. Please communicate with MD before administering the dose 1400 (Due)1413 (Give n - Provider: Ronald Bernal, JANA) oxyCODONE (ROXICODONE) immediate release tablet 2.5 mg 2.5 mg, Oral, Once, On Mon06/05/18 at 1730, For 1 dose 1904 (Not Given - Pr ovider: Sussy Moody, JANA - Reason: Other) Continuous Medication Order 06/03/2018 06/04/2018 06/05/2018 sodium chloride 0.9 % infusion 100 mL/hr, Intravenous, Continuous, Starting on Mon06/05/18 at 1200, Pre-Procedure(Invasive Cardiology) 1226 (New Bag - Prov ider: Gem Santos, RN)1715 (Stopped - Provider: Sussy Moody, JANA) PRN Medication Order 06/03/2018 06/04/2018 06/05/2018 fentaNYL (SUBLIMAZE) injection (CANCELED) Intra-op PRN, Starting on Mon06/05/18 at 1431, Intra-procedure(Invasive Cardiology) 1431 (Given - Provid er: Ronald Bernal, JANA)1506 (Given - Provider: Ronald Bernal, RN) heparin (porcine) injection (CANCELED) Intra-op PRN, Starting on Mon06/05/18 at 1447, Intra-procedure(Invasive Cardiology) 1447 (Given - Provid er: Ronald Bernal, RN) midazolam (PF) (VERSED) injection (CANCELED) Intra-op PRN, Starting on Mon06/05/18 at 1431, Intra-procedure(Invasive Cardiology) 1431 (Given - Provid er: Ronald Bernal, RN)1508 (Given - Provider: Ronald Bernal, RN) verapamil (ISOPTIN) injection (CANCELED) Intra-op PRN, Starting on Mon06/05/18 at 1443, Intra-procedure(Invasive Cardiology) 1443 (Given - Provid er: Padma Montgomery MD) No Frequency Medication Order 06/03/2018 06/04/2018 06/05/2018 acetaminophen (TYLENOL) 325 MG tablet (COMPLETED) Starting on Mon06/05/18 at 1249, For 1 dose, GEM SANTOS M: cabinet override 1251 (Given - Provid er: Gem Santos, JANA) aspirin 81 MG chewable tablet (COMPLETED) Starting on Mon06/05/18 at 1219, For 1 dose, GEM SANTOS M: cabinet override 1221 (Given - Provid er: Gem Santos, JANA) documented in this encounter Additional Health Concerns Assessment Noted Time PHQ-9 Depression Total Score: 0 12/06/19 18 3:00 PM EDT documented as of this encounter Care Teams Photoengraving Finisher Relationship Specialty Start Date End Date Edgar Fournier MD [address] [place] [address] [place] [address] PCP - General 08/18/17 06/23/21 Maile Valles, JANA Txp Post Coordinator Transplant Hepatology 11/07/17 Jack Ordoñez MD [address] [place] [phone] Consulting Physician Transplant Hepatology 01/05/18 documented as of this encounter
--- OUTSIDE RECORDS SUMMARY | 2024-07-12 12:50 | XMS_ITS | Encounter Summary ---
Author Organization [facility] Address [address] [place] [address] Care Team Providers Care Mix House Tender Name Role Phone Edgar Fournier MD Primary Care Provider [phone] Maile Valles RN Unavailable Unavail able Jack Ordoñez MD Unavailable [phone] Source Comments This information has been [...] release of HIV test results or diagnoses. [id number] Health Encounter Details Date Type Department Care Team (Late st Contact Info) Description 12/13/2018 1:05 PM EDT Office Visit [facility] [address] [place] [phone] Jack Ordoñez MD [address] [place] [phone] S/P liver transplant ([facility]) (Primary Dx); Gastroesophageal reflux disease, esophagitis presence not specified; CKD (chronic kidney disease) stage 3, GFR 30-59 ml/min ([facility]); Immunosuppression ([facility]) Social History Tobacco Use Types Packs/Day Years [...] Sign Reading Time Taken Comments Blood Pressure 155/84 12/13/2018 7:00 AM EDT Pulse 73 12/13/2018 7:00 AM EDT Temperature 35.7 ??C (96.2 ??F) 12/13/2018 7:00 AM ED T Respiratory Rate - - Oxygen Saturation 96% 12/13/2018 7:00 AM EDT Inhaled Oxygen Concentration 96% 12/13/2018 7 :00 AM EDT Weight 129.7 kg (286 lb) 12/13/2018 7:00 AM EDT Height 170.2 cm (5' 7 ) 12/13/2018 7:00 AM EDT Body Mass Index 44.79 12/13/2018 7:00 AM EDT documented in this encounter Patient Instructions * Patient Instructions* Jack Ordoñez MD - 12/13/2018 1:05 PM EDT Plan: 1. Continue Envarsus 2 mg daily. 2. ??Continue Cellcept 750 mg twice daily 3. ??Would check labs every month including: CBC, renal, hepatic profile, and tacrolimus trough. 4. ??Would recommend annual visit to [...] with your blood pressure with your PCP. 9. ??Continue Entecavir daily for HBcAb+ liver. Reduce to 0.5 mg every other day due to worsening kidneys. 10. Will refer for consider of bariatric surgery with Dr. Trivedi. 11. ??Return in 3 months documented in this encounter Progress Notes * Melvin Petty MA - 12/13/2018 1:05 PM EDT Review of Systems Constitutional: Negative. HENT: Negative. Eyes: Negative. Respiratory: Negative. Cardiovascular: Negative. Gastrointestinal: Positive for nausea. Genitourinary: Negative. Musculoskeletal: Negative. Skin: Negative. Neurological: Positive for headaches. Endo/Heme/Allergies: Negative. Psychiatric/Behavioral: Negative. Patient stated broke out in sweats, patient stated ear is stopped up and need to be drained * Jack Ordoñez MD - 12/13/2018 1:05 PM EDT Subjective: Aiden Stauffer is a 43 y.o. 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 The patient was last seen in Aug 2018. He received a [facility] high risk donor, who was HBV ALEXANDRA +, HCV Ab+, ALEXANDRA negative and therefore will be on lifelong entecavir. Post-operative course was complicated by altered mental status and severe tremors thought to be related to tacrolimus toxicity, as well as hypoxia. He received one dose of thymoglobulin . Liver tests are normal on Envarsus 2 mg daily (switched dueto neurologic toxicity from tacrolimus, also switch off cyclo due to renal insufficiency) and cellcept 750 mg twice daily. Side effects improved from Envarsus. His liver tests are normal. Cr 2.7. Co-morbidities include hypertension and DM for which he is on insulin. Still struggling with HTN and T2DM. He presents today for followup. He is concerned about his BP. The following portions of the patient's history [...] surgical incision Musculoskeletal: Normal range of motion. He exhibits no edema, tenderness or deformity. Lymphadenopathy: He has no cervical adenopathy. Neurological: [...] switch to cyclosporine, CKD with Cr of 2.7, and HTN. He received a HBV ALEXANDRA positive and HCV antibody / ALEXANDRA negative organ and remains on Entecavir. Recommend all family members / sexual partners be vaccinated to Hep B. He was switched to Envarsus for renal sparing effects and low cyclosporine levels. His liver labs are normal. Continue Envarsus 2 mg daily. ??Continue Cellcept 750 mg twice daily ??Would check labs every month including: CBC, renal, hepatic profile, and tacrolimus trough. ??Would recommend annual visit to Dermatology for skin cancer surveillance. ??Please use SPF 30 or higher sunscreen, hat, long-sleeves and sunglasses while in the sun. ??Please continue age appropriate cancer screening including: colonoscopy, prostate exam. ??Will check HgA1C, Vit D, Lipid profile, and urine protein / Cr ratio on annual basis with your PCP.??Please discusswith your blood pressure with your PCP. ??Continue Entecavir daily for HBcAb+ liver. Reduce to 0.5 mg every other day due to worsening kidneys. Will refer for consider of bariatric surgery with Dr. Trivedi. ??Return in 3 months Plan: 1. Continue Envarsus 2 mg daily. 2. ??Continue Cellcept 750 mg twice daily 3. ??Would check labs every month including: CBC, renal, hepatic profile, and tacrolimus trough. 4. ??Would recommend annual visit to [...] with your blood pressure with your PCP. 9. ??Continue Entecavir daily for HBcAb+ liver. Reduce to 0.5 mg every other day due to worsening kidneys. 10. Will refer for consider of bariatric surgery with Dr. Trivedi. 11. ??Return in 3 months * Maile Valles RN - 12/13/2018 1:05 PM EDT After visit summary including patient [...] needs: None verbalized at this time. * Leah Gupta - 12/13/2018 1:05 PM EDT Transplant Pharmacist Assessment and Recommendations: Current Outpatient Prescriptions Medication Sig ??? aspirin 81 MG chewable tablet Chew 1 tablet (81 mg total) by mouth daily with breakfast. ??? carBAMazepine (TEGRETOL) 200 mg tablet Take [...] mg by mouth daily. ??? gabapentin (NEURONTIN) 600 MG tablet Take 800 mg by mouth 3 times a day. Taking 800mg in the AM, 1200mg at 6pm, and then 800mg at 9pm ??? insulin glulisine U-100 (APIDRA U-100 INSULIN) [...] 15 units in the PM. ) ??? mycophenolate (CELLCEPT) 250 mg capsule Take 3 capsules (750 mg total) by mouth 2 times a day. ??? NIFEdipine (PROCARDIA-XL) 90 MG (OSM) 24 hr tablet Take 90 mg by mouth 2 times a day. ??? ondansetron (ZOFRAN-ODT) 4 MG disintegrating tablet every 8 hours as needed. ??? sucralfate (CARAFATE) 1 gram tablet Take 1 g by mouth 3 times a day. ??? tacrolimus (ENVARSUS XR) 1 mg Tb24 Take 2 mg by mouth daily. ??? blood sugar diagnostic Strp Use to test blood sugar up to 4 times a day. Diagnosis for use: E 9.65. For use with One Touch Verio meters. ??? blood-glucose meter (ONETOUCH VERIO SYSTEM) Misc Use as instructed. ??? entecavir (BARACLUDE) 0.5 MG tablet Take 1 tablet (0.5 mg total) by mouth every other day. ??? lancets (PharnextTOUCH DELICA LANCETS) 33 gauge Misc Use 1 strip as directed 4 times daily before meals and at bedtime. ??? pen needle, diabetic 32 gauge x 5/32 Ndle Use as directed to inject insulin 4 times daily. ??? pen needle, diabetic 32 gauge x 5/32 Ndle For use with insulin pen. Use as instructed. No current facility-administered medications for this visit. Immunosuppression: THYMO BRIDGE - post-op Month 14 Perioperative immunosuppression regimen included: steroid taper, MMF, tacrolimus and Thymoglobulin (175mg x 1 dose on 10/09/17) Currently on Envarsus XR 2 mg daily??and mycophenolate 750mg bid. MMF increased 04/10/18 for renal sparing. -Previously on CsA due to significant tremors with Prograf (switched to CsA on 10/23). Reports tremors improved significantly with cyclosporine. Envarsus initiated 04/14/18 due to rising creatinine and low CsA levels- he is tolerating well now. ?? Administers medications at: 9AM, 3PM and 9PM. ??Immunosuppression at 9AM and 9PM. ?? Goal Tacrolimus level is 3-8 ng/mL. ?? Latest Tacrolimus level: Tacrolimus by Immunoassay Date Value Ref Range Status 10/23/2018 -- Final 08/13/2018 2.6 Final Tacrolimus Lvl Date Value Ref Range Status 10/23/2018 1.3 (A) 6 - 15 ng/mL Final 09/13/2018 3.8 (L) 5.0 - 20.0 ng/mL Final Comment: Detection limit: 2 ng/mL. Performed via chemiluminescent microparticle immunoassay on the [employer] i1000. Rejection in the past 12 months: none Blood Sugars: HgbA1c 7.4% on 12/13/2018. Poor DM control. Defer to PCP. Blood pressure: BP 155/84 (BP Location: Right arm, Patient Position: Sitting) Pulse 73 Temp 96.2 ??F (35.7 ??C)(Oral) Ht 5' 7 (1.702 m) Wt (!) 286 lb (129.7 kg) SpO2 96% BMI 44.79 kg/m?? BP continues to be elevated. Management per PCP. Other: Peptic Ulcer Disease (?): Patient reports that he was seen at [facility] ([phone] is a number provided by patient) and did an EGD there. Was told that he has severe ulcers. Was prescribedprotonix, but he self-discontinued this because of worsening his renal dysfunction. He has only remained on Carafate 1g TID and pepcid 20mg PO daily. Adherence: Patient reports missing 0 doses in the past 7 days The following barriers to adherence have been identified: none It is my assessment that the patient demonstrates satisfactory adherence and medication understanding Influenza immunization: Not discussed. Recommendations: 1. Tacrolimus: follow-up with pending level. 2. Entecavir: discussed with Dr. Ordoñez. Will reduce to entecavir 0.5mg PO q48h due to renal impairment. 3. RN coordinator to obtain EGD records from [facility] 4. Defer to PCP for management of metabolic syndrome: HLD, HTN, T2DM. documented in this encounter Plan of Treatment Upcoming Encounters Date Type Department Care Team (Late st Contact Info) Description 07/15/2024 9:00 AM EST Hospital Encounter [facility] Interventional Radiology [address] [place] [phone] Herve Carrillo MD [address] [facility] [address] [facility] [place] [phone] documented as of this encounter Visit Diagnoses Diagnosis S/P liver transplant ([facility])- Primary Gastroesophageal reflux disease, esophagitis presence not specified CKD (chronic kidney disease) stage 3, GFR 30-59 ml/min (CMS-HCC) Chronic kidney disease, Stage III (moderate) Immunosuppression (CMS-HCC) documented in this encounter Additional Health Concerns Assessment Noted Time PHQ-9 Depression Total Score: 0 12/06/19 18 3:00 PM EDT documented as of this encounter Care Teams Mix House Tender Relationship Specialty Start Date End Date Edgar Fournier MD [address] [place] [address] [place] [phone] PCP - General 08/18/17 06/23/21 Maile Valles, RN Txp Post Coordinator Transplant Hepatology 11/07/17 Jack Ordoñez MD [address] [place] [phone] Consulting Physician Transplant Hepatology 01/05/18 documented as of this encounter
--- OUTSIDE RECORDS SUMMARY | 2024-07-12 12:50 | XMS_ITS | Encounter Summary ---
Author Organization Health Address [facility] [place] [address] Care Team Providers Care Supervisor [employer] Name Role Phone Edgar Fournier MD Primary Care Provider [phone] Maile Valles RN Unavailable Unavail able Jack Ordoñez MD Unavailable [phone] Source Comments This information has been [...] release of HIV test results or diagnoses. [id number] Health Encounter Details Date Type Department Care Team (Late st Contact Info) Description 09/12/2018 Orders Only [facility] [address] Maile Valles, JANA S/P liver transplant ([facility]) (Primary Dx); Immunosuppression ([facility]) Social History Tobacco Use Types Packs/Day [...] [facility] Interventional Radiology [address] [place] [address] Herve Carrillo MD [address] [facility] [address] [place] [address] documented as of this encounter Results * Protein / creatinine ratio, urine (12/13/2018 12:32 PM EDT) Creatinine, Urine 160.30 mg/dL 12/13/2018 2:17 PM EDT [facility] Comment:Reference range not established for this test. Total Protein, Ur >1000 mg/dL 12/13/2018 2:17 PM EDT [facility] Comment:Reference range not established for this test. Prot/Creat Ratio, Ur See Note ratio 12/13/2018 2:17 PM EDT [facility] Urine specimen (specimen) 12/13/2018 12:32 PM EDT 12/13/2018 1:06 PM EDT Narrative HEALTH LAB - 12/13/2018 2:17 PM EDT Unable to calculate result either because contributing result(s) are outside of reportable range or are not available. us Jack Ordoñez MD URINE ORDERABLES Final Result [facility] [address] [place] [address], [facility] * (ABNORMAL) Hemoglobin A1c (12/13/2018 12:32 PM EDT) Hemoglobin A1C 7.4(H) 4.8 - 6.4 % 12/13/2018 1:27 PM EDT [facility] Comment: Hemoglobin (Hb) A1C Normal: ??4.8 - 5.6% Increased Risk for Diabetes: 5.7 - 6.4% Diagnostic Diabetes: ? >/= ?? 6.5% (Drawn on 2 separate occasions) Glycemic Control for Adults with Diabetes: <7.0% (DCCT / NGSP) Whole blood specimen (specimen) 12/13/2018 12:32 PM EDT 12/13/2018 12:58 PM EDT us Jack Ordoñez MD LAB BLOOD ORDERABLES Final Re sult [facility] [address] [facility] [place] [address], [facility] * (ABNORMAL) Lipid Profile (12/13/2018 12:32 PM EDT) Cholesterol, Total 262(H) 0 - 200 mg/dL 12/13/2018 1:30 PM EDT [facility] Triglycerides 881(H) 10 - 149 mg/dL 12/13/2018 1:30 PM EDT [facility] HDL 28(L) 60 - 92 mg/dL 12/13/2018 1:30 PM EDT [facility] Comment: ?LIPID PROFILE INTERPRETATION ?CHOLESTEROL,TOTAL(mg/dL) ? [...] hour fast. LDL Cholesterol See Note mg/dL 9 1:30 PM EDT [facility] Comment:LDL calculation is i nvalid because the triglyceride level is equal to or greater than 400 mg/dl. Plasma specimen (specimen) 12/13/2018 12:32 PM EDT 12/13/2018 12:58 PM EDT Narrative [facility] - 12/13/2018 1:30 PM EDT Fasting not necessary. Must the patient be fasting for this test?->No Jack Ordoñez MD LAB BLOOD ORDERABLES Final Re sult Performing Organization Address [facility] de Phone Number [facility] [address] [facility] * Hepatitis B Virus (HBV), PCR, Quant (12/13/2018 12:32 PM EDT) Hep B Viral DNA IU/ML Not Detected IU/mL 12/18/2018 2:08 PM EDT [facility] Comment:Test methodology for HBV DNA quantification is an FDA-approved nucleic acid amplification assay. The Lower Limit of Quantitation (LLOQ) is 20 IU/mL. The linear range of the assay is 20- 170,000,000 IU/mL. log 10 HBV as IU/mL See Note log 10 IU/mL 12/18/2018 2:08 PM EDT [facility] Comment: Unable to calculate result either because contributing result(s) are outside of reportable range or are not available. HBV DNA not detected. Serum specimen (specimen) 12/13/2018 12:32 PM EDT 12/13/2018 1:47 PM EDT Jack Ordoñez MD LAB BLOOD ORDERABLES Final Re sult Performing Organization Address [facility] de Phone Number [facility] [address] [facility]. [address] * Hepatitis B surface antigen (12/13/2018 12:32 PM EDT) Hep B Surface Ag Nonreactive Nonreactive 12/13/2018 1:50 PM EDT [facility] Comment:Health Department no tified in accordance with reportable infectious disease guidelines. Serum specimen (specimen) 12/13/2018 12:32 PM EDT 12/13/2018 12:58 PM EDT [facility] - 12/13/2018 1:50 PM EDT Specimen is considered negative for HBsAg. Jack Ordoñez MD LAB BLOOD ORDERABLES Final Re sult Performing Organization Address [facility] de Phone Number [facility] [address] [place] [address] * Hepatitis B Core Antibody (12/13/2018 12:32 PM EDT) Hep B Core Total Ab Nonreactive Nonreactive 12/13/2018 1:50 PM EDT [facility] Comment:Health Department no tified in accordance with reportable infectious disease guidelines. Serum specimen (specimen) 12/13/2018 12:32 PM EDT 12/13/2018 12:58 PM EDT [facility] - 12/13/2018 1:50 PM EDT A nonreactive final interpretation indicates that anti-HBc antibodies were not detected in the sample; it is possible that the individual is not infected with HBV. Jack Ordoñez MD LAB BLOOD ORDERABLES Final Re sult Performing Organization Address [facility] de Phone Number [facility] [address] [facility] * (ABNORMAL) Hepatitis B Surface Antibody, Quantitative (12/13/2018 12:32 PM EDT) HBSAB NUMBER 92.81(H) 0.00 - 7.99 mIU/mL 12/13/2018 2:17 PM EDT [facility] Hep B S Ab Reactive( A) Nonreactive 12/13/2018 2:17 PM EDT [facility] Serum specimen (specimen) 12/13/2018 12:32 PM EDT 12/13/2018 12:58 PM EDT Narrative HEALTH LAB - 12/13/2018 2:17 PM EDT Individual is considered immune to HBV infection. Jack Ordoñez MD LAB BLOOD ORDERABLES Final Re sult [facility] [address] documented in this encounter Visit Diagnoses Diagnosis S/P liver transplant (CMS-HCC)- Primary Immunosuppression (CMS-HCC) Transplanted liver (CMS-HCC) Liver replaced by transplant Drug therapy Encounter for other specified aftercare S/P liver transplant (CMS-HCC) Immunosuppression (CMS-HCC) documented in this encounter Additional Health Concerns Assessment Noted Time PHQ-9 Depression Total Score: 0 12/06/19 18 3:00 PM EDT documented as of this encounter Care Teams Supervisor [employer] Relationship Specialty Start Date End Date Edgar Fournier MD [address] [place] [address] PCP - General 08/18/17 06/23/21 Maile Valles, RN Txp Post Coordinator Transplant Hepatology 11/07/17 Jack Ordoñez MD [address] [place] [address] Consulting Physician Transplant Hepatology 01/05/18 documented as of this encounter
--- OUTSIDE RECORDS SUMMARY | 2024-07-12 12:50 | XMS_ITS | Encounter Summary ---
Author Organization [facility] Address [address] [place] [address] Care Team Providers Care Dental Assisting Instructor Name Role Phone Edgar Fournier MD Primary Care Provider [phone] Maile Valles RN Unavailable Unavail able Jack Ordoñez MD Unavailable [phone] Source Comments This information has been [...] release of HIV test results or diagnoses. [id number] Reason for Visit * Reason Onset Date Comments Results 08/15/2018 Encounter Details Date Type Department Care Team (Late st Contact Info) Description 08/15/2018 Telephone [facility] Liver Transplant at Outpatient [address] [address] Maile Valles, JANA Results Social [...] Miscellaneous Notes * Telephone Encounter - Maru Flores RN - 08/17/2018 12:29 PM EST FK 2.6, goal 3-8 * Telephone Encounter - Maile Valles RN - 08/15/2018 1:[address] Ordoñez: Nothing to change * Telephone Encounter - Maile Valles RN - 08/15/2018 9:20 AM EST Lab results from 08/13/18 reviewed. Cr elevated to 2.4 Alight bump in Alk phos. FK pending. documented in this encounter Plan of Treatment Upcoming Encounters Date Type Department Care Team (Late st Contact Info) Description 07/15/2024 9:00 AM EST Hospital Encounter [facility] Interventional Radiology [address] [place] [phone] Herve Carrillo MD 3[address] [facility] [address] [facility] [place] [address] documented as of this encounter Visit Diagnoses Not on filedocumented in this encounter Additional Health Concerns Assessment Noted Time PHQ-9 Depression Total Score: 0 12/06/19 18 3:00 PM EDT documented as of this encounter Care Teams Dental Assisting Instructor Relationship Specialty Start Date End Date Edgar Fournier MD [address] [place] [address] [place] [address] PCP - General 08/18/17 06/23/21 Maile Valles, RN Txp Post Coordinator Transplant Hepatology 11/07/17 Jakc Ordoñez MD [address] [place] [address] Consulting Physician Transplant Hepatology 01/05/18 documented as of this encounter
--- OUTSIDE RECORDS SUMMARY | 2024-07-12 12:50 | XMS_ITS | Encounter Summary ---
Author Organization Health Address [address] [place] [address] Care Team Providers Care Miniature Set Designer Name Role Phone Edgar Fournier MD Primary Care Provider [phone] Maile Valles RN Unavailable Unavail able Jack Ordoñez MD Unavailable [phone] Source Comments This information has been [...] release of HIV test results or diagnoses. [id number] Encounter Details Date Type Department Care Team (Late st Contact Info) Description 09/07/2018 Abstract [facility] G[facility]enterology at [facility] [address] [facility] 6[address] [place] [phone] Yoli Mcbride MA Social History Tobacco Use Types Packs/Day [...] Encounter [facility] Interventional Radiology [address] [place] [phone] Herve Carrillo MD [address] [place] [facility] [address] [place] [address] documented as of this encounter Procedures Procedure Name Priority Date/Time Associated Diagnosis Comments CBC Routine 08/29/2018 10:28 AM EST GLUCOSE, RANDOM Routine 08/29/2018 10:28 AM EST HEPATIC FUNCTION PANEL Routine 08/29/2018 10:28 AM EST RENAL FUNCTION PANEL W/O EGFR Routine 08/29/2018 10:28 AM EST documented in this encounter Results * Glucose, random (08/29/2018 10:28 AM EST) Glucose 178 60 - 200 mg/dL Plasma specimen (specimen) Historical Provider LAB BLOOD ORDERABLES Yoselin l Result * (ABNORMAL) Hepatic function panel (08/29/2018 10:28 AM EST) Alkaline Phosphatase 158 U/L ALT 18 U/L AST 14 U/L Total Bilirubin 0.2 0.1 - 1.4 mg/dL Protein, Total 5.9 Albumin 2.7(A) 3.5 - 5.0 g/dL Blood specimen (specimen) Historical Provider LAB BLOOD ORDERABLES Yoselin l Result * (ABNORMAL) Renal Function Panel w/o EGFR (08/29/2018 10:28 AM EST) Creatinine 2.0 BUN 40(A) 4 - 21 mg/dL Potassium 4.7 3.4 - 5.3 mmol/L Sodium 142 137 - 147 mmol/L Chloride 108 99 - 108 mmol/L Phosphorus 3.8 2.5 - 4.9 mg/dL Magnesium 2 1.6 - 2.4 mg/dL Calcium 8(A) 8.7 - 10.7 mg/dL Blood specimen (specimen) Historical Provider MD LAB BLOOD ORDERABLES Yoselin l Result * (ABNORMAL) CBC (08/29/2018 10:28 AM EST) Hemoglobin 10.4(A) 13.5 - 17.5 g/dL Hematocrit 30.4(A) 41 - 53 % MCH 28.5 26.0 - 34.0 pg MCV 83.3 82.0 - 108.0 fL WBC 4 10^3/mL Platelets 206 Whole blood specimen (specimen) [facility] Provider LAB BLOOD ORDERABLES Yoselin l Result documented in this encounter Visit Diagnoses Not on filedocumented in this encounter Additional Health Concerns Assessment Noted Time PHQ-9 Depression Total Score: 0 12/06/19 18 3:00 PM EDT documented as of this encounter Care Teams Miniature Set Designer Relationship Specialty Start Date End Date Edgar Fournier MD [address] [place] [address] [place] [address] PCP - General 08/18/17 06/23/21 Maile Valles, RN Txp Post Coordinator Transplant Hepatology 11/07/17 Jack Ordoñez MD [facility] [place] [address] Consulting Physician Transplant Hepatology 01/05/18 documented as of this encounter
--- OUTSIDE RECORDS SUMMARY | 2024-07-12 12:50 | XMS_ITS | Encounter Summary ---
Author Organization Health Address [facility] [place] [address] Care Team Providers Care Electronic Engineering Draftsperson Name Role Phone Edgar Fournier MD Primary Care Provider [phone] Maile Valles RN Unavailable Unavail able Jack Ordoñez MD Unavailable [phone] Source Comments This information has been [...] release of HIV test results or diagnoses. [id number] Encounter Details Date Type Department Care Team (Late st Contact Info) Description 08/13/2018 Telephone [facility] Liver Transplant at Outpatient [address] [address] Lynnette Muhammad MA Social History [...] Telephone Encounter - Lynnette Muhammad MA - 08/13/2018 12:53 PM EST Pt called and stated he went this morning to get his labs done. Call Monday to get labs results,he wanted to go over his lab results documented in this encounter Plan of Treatment Upcoming Encounters Date Type Department Care Team (Late st Contact Info) Description 07/15/2024 9:00 AM EST Hospital Encounter [facility] Interventional Radiology [address] [place] [address] Herve Carrillo MD 3130 [facility] 3[address] [place] [address] documented as of this encounter Visit Diagnoses Not on filedocumented in this encounter Additional Health Concerns Assessment Noted Time PHQ-9 Depression Total Score: 0 12/06/19 18 3:00 PM EDT documented as of this encounter Care Teams Electronic Engineering Draftsperson Relationship Specialty Start Date End Date Edgar Fournier MD [address] [place] [address] [place] [address] PCP - General 08/18/17 06/23/21 Maile Valles, JANA Txp Post Coordinator Transplant Hepatology 11/07/17 Jack Ordoñ[place] [address] [place] [phone] Consulting Physician Transplant Hepatology 01/05/18 documented as of this encounter
--- OUTSIDE RECORDS SUMMARY | 2024-07-12 12:50 | XMS_ITS | Encounter Summary ---
Author Organization Health Address [facility] [place] [address] Care Team Providers Care Pipe Cutter Name Role Phone Edgar Fournier MD Primary Care Provider [phone] Maile Valles RN Unavailable Unavail able Jack Ordoñez MD Unavailable [phone] Source Comments This information has been [...] release of HIV test results or diagnoses. [id number] Encounter Details Date Type Department Care Team (Late st Contact Info) Description 11/07/2018 Chart Note [facility] [phone] Maile Valles, JANA Social History Tobacco Use [...] [facility] Interventional Radiology [address] [place] [phone] Herve Carrillo MD [address] [place] [address] documented as of this encounter Procedures Procedure Name Priority Date/Time Associated Diagnosis Comments HEPATITIS B,C PROFILE Routine 11/01/2018 11:58 AM EDT HEPATITIS B VIRUS (HBV), REAL-TIME PCR, QUANT Routine 11/01/2018 11:58 AM EDT documented in this encounter Results * Hepatitis B,C Profile (11/01/2018 11:58 AM EDT) Hep B S Ab Positive Comment:121.7; > 9.9, indica ting immunity Blood specimen (specimen) Historical Provider LAB BLOOD ORDERABLES Yoselin l Result * Hepatitis B Virus (HBV), PCR, Quant (11/01/2018 11:58 AM EDT) Hepatitis B Quantitation Not detected Serum specimen (specimen) Historical Provider LAB BLOOD ORDERABLES Yoselin l Result documented in this encounter Visit Diagnoses Not on filedocumented in this encounter Additional Health Concerns Assessment Noted Time PHQ-9 Depression Total Score: 0 12/06/19 18 3:00 PM EDT documented as of this encounter Care Teams Pipe Cutter Relationship Specialty Start Date End Date [place] [address] PCP - General 08/18/17 06/23/21 Maile Valles, RN Txp Post Coordinator Transplant Hepatology 11/07/17 Jack Ordoñez MD [facility] [place] [address] Consulting Physician Transplant Hepatology 01/05/18 documented as of this encounter
--- OUTSIDE RECORDS SUMMARY | 2024-07-12 12:50 | XMS_ITS | Encounter Summary ---
Author Organization Health Address [facility] [place] [address] Care Team Providers Care Payroll Assistant Name Role Phone Edgar Fournier MD Primary Care Provider [phone] Maile Valles RN Unavailable Unavail able Jack Ordoñez MD Unavailable [phone] Source Comments This information has been [...] release of HIV test results or diagnoses. [id number] Encounter Details Date Type Department Care Team (Late st Contact Info) Description 11/07/2018 Chart Note [facility] [phone] Maile Valles, JANA Social History Tobacco Use [facility] [address] [place] [phone] Herve Carrillo MD [address] [place] [address] documented as of this encounter Procedures Procedure Name Priority Date/Time Associated Diagnosis Comments HEPATIC FUNCTION PANEL Routine 11/01/2018 11:58 AM EDT RENAL FUNCTION PANEL W/O EGFR Routine 11/01/2018 11:58 AM EDT documented in this encounter Results * (ABNORMAL) Renal Function Panel w/o EGFR (11/01/2018 11:58 AM EDT) Glucose 150 mg/dL BUN 36(A) 4 - 21 mg/dL CO2 25(A) 13 - 22 mmol/L Creatinine 2.5(A) 0.6 - 1.3 mg/dL Potassium 4.5 3.4 - 5.3 mmol/L Sodium 141 137 - 147 mmol/L Chloride 104 99 - 108 mmol/L Albumin 2.7 Phosphorus 4 2.5 - 4.9 mg/dL Calcium 8.1(A) 8.7 - 10.7 mg/dL EGFR 30 mg/dL Blood specimen (specimen) Historical Provider LAB BLOOD ORDERABLES Yoselin l Result * (ABNORMAL) Hepatic Function Panel (11/01/2018 11:58 AM EDT) Alkaline Phosphatase 173 U/L ALT 19 U/L AST 17 U/L Total Bilirubin 0.2 0.1 - 1.4 mg/dL Bilirubin, Direct 0.1 0.01 - 0.4 mg/dL Total Protein 5.6(A) 6.4 - 8.2 g/dL Plasma specimen (specimen) us Historical Provider LAB BLOOD ORDERABLES Yoselin l Result documented in this encounter Visit Diagnoses Not on filedocumented in this encounter Additional Health Concerns Assessment Noted Time PHQ-9 Depression Total Score: 0 12/06/19 18 3:00 PM EDT documented as of this encounter Care Teams Payroll Assistant Relationship Specialty Start Date End Date Edgar Fournier MD [address] [place] [phone] PCP - General 08/18/17 06/23/21 Maile Valles, JANA Txp Post Coordinator Transplant Hepatology 11/07/17 Jack Ordoñez MD [facility] [place] [phone] Consulting Physician Transplant Hepatology 01/05/18 documented as of this encounter
--- OUTSIDE RECORDS SUMMARY | 2024-07-12 12:50 | XMS_ITS | Encounter Summary ---
Author Organization [facility] [place] [facility] Address [facility] [place] [address] Care Team Providers Care Pega Developer Name Role Phone Edgar Fournier MD Primary Care Provider [phone] Maile Valles RN Unavailable Unavail able Jack Ordoñez MD Unavailable [phone] Source Comments This information has been [...] release of HIV test results or diagnoses. [id number] [place] [facility] Reason for Visit * Reason Onset Date Comments Medication Refill 11/27/2018 Encounter Details Date Type Department Care Team (Late st Contact Info) Description 11/27/[address] [facility] Liver Transplant at Outpatient [address] [phone] Melvin Petty MA S/P liver transplant ([facility]) Social History Tobacco Use Types [...] [facility] Interventional Radiology [address] [place] [phone] Herve Carrillo MD 3130 [facility] [address] [place] [phone] documented as of this encounter Visit Diagnoses Diagnosis S/P liver transplant (CMS-HCC) documented in this encounter Additional Health Concerns Assessment Noted Time PHQ-9 Depression Total Score: 0 12/06/19 18 3:00 PM EDT documented as of this encounter Care Teams Pega Developer Relationship Specialty Start Date End Date Edgar Fournier MD [address] [place] [address] [place] [address] PCP - General 08/18/17 06/23/21 Maile Valles RN Txp Post Coordinator Transplant Hepatology 11/07/17 Jack Ordoñez MD [address] [place] [phone] Consulting Physician Transplant Hepatology 01/05/18 documented as of this encounter
--- OUTSIDE RECORDS SUMMARY | 2024-07-12 12:50 | XMS_ITS | Encounter Summary ---
Author Organization Health Address [address] [place] [address] Care Team Providers Care Cushion Builder Name Role Phone Edgar Fournier MD Primary Care Provider [phone] Maile Valles RN Unavailable Unavail able Jack Ordoñez MD Unavailable [phone] Source Comments This information has been [...] release of HIV test results or diagnoses. [id number] Encounter Details Date Type Department Care Team (Late st Contact Info) Description 09/28/2018 Orders Only [facility] at [facility] [address] [place] [address] 6[address] [place] [phone] Skylar Virgen, RN Social History Tobacco Use Types Packs/Day [...] [facility] Interventional Radiology [address] [place] [phone] Herve Carrillo MD [address] [facility] [address] [place] [address] documented as of this encounter Visit Diagnoses Not on filedocumented in this encounter Additional Health Concerns Assessment Noted Time PHQ-9 Depression Total Score: 0 12/06/19 18 3:00 PM EDT documented as of this encounter Care Teams Cushion Builder Relationship Specialty Start Date End Date Edgar Fournier MD [address] [place] [address] [place] [address] PCP - General 08/18/17 06/23/21 Maile Valles, JANA Txp Post Coordinator Transplant Hepatology 11/07/17 Jack Ordoñez MD [address] [place] [address] Consulting Physician Transplant Hepatology 01/05/18 documented as of this encounter
--- OUTSIDE RECORDS SUMMARY | 2024-07-12 12:50 | XMS_ITS | Encounter Summary ---
Author Organization Health Address [facility] [place] [address] Care Team Providers Care Living Supervisor Name Role Phone Edgar Fournier MD Primary Care Provider [phone] Maile Valles RN Unavailable Unavail able Jack Ordoñez MD Unavailable [phone] Source Comments This information has been [...] release of HIV test results or diagnoses. [id number] Encounter Details Date Type Department Care Team (Late st Contact Info) Description 08/17/2018 Chart Note [facility] [phone] Latrice Brice MA Social History Tobacco Use [...] AM EST Hospital Encounter [facility] Interventional Radiology [address] [place] [address] Herve Carrillo MD [address] [facility] [address] [place] [address] documented as of this encounter Procedures Procedure Name Priority Date/Time Associated Diagnosis Comments TACROLIMUS LEVEL Routine 08/13/2018 7:06 AM EST documented in this encounter Results * Tacrolimus level (08/13/2018 7:06 AM EST) Tacrolimus by Immunoassay 2.6 Tacrolimus Lvl -- 6 - 15 ng/mL Whole blood specimen (specimen) us Historical Provider LAB BLOOD ORDERABLES Yoselin l Result documented in this encounter Visit Diagnoses Not on filedocumented in this encounter Additional Health Concerns Assessment Noted Time PHQ-9 Depression Total Score: 0 12/06/19 18 3:00 PM EDT documented as of this encounter Care Teams Living Supervisor Relationship Specialty Start Date End Date Edgar Fournier MD [address] [place] [address] [place] [address] PCP - General 08/18/17 06/23/21 Maile Valles, JANA Txp Post Coordinator Transplant Hepatology 11/07/17 Jack Ordoñez MD [address] [place] [address] Consulting Physician Transplant Hepatology 01/05/18 documented as of this encounter
--- OUTSIDE RECORDS SUMMARY | 2024-07-12 12:50 | XMS_ITS | Encounter Summary ---
Author Organization Health Address [facility] [place] [address] Care Team Providers Care Automation Consultant Name Role Phone Edgar Fournier MD Primary Care Provider [phone] Maile Valles RN Unavailable Unavail able Jack Ordoñez MD Unavailable [phone] Source Comments This information has been [...] release of HIV test results or diagnoses. [id number] Encounter Details Date Type Department Care Team (Late st Contact Info) Description 10/25/2018 Chart Note [facility] [phone] Latrice Brice MA Social History Tobacco Use [...] Hospital Encounter [facility] Interventional Radiology [address] [place] [phone] Herve Carrillo MD [address] [facility] [address] [place] [address] documented as of this encounter Visit Diagnoses Not on filedocumented in this encounter Additional Health Concerns Assessment Noted Time PHQ-9 Depression Total Score: 0 12/06/19 18 3:00 PM EDT documented as of this encounter Care Teams Automation Consultant Relationship Specialty Start Date End Date Edgar Fournier MD [address] [place] [address] [place] [address] PCP - General 08/18/17 06/23/21 Maile Valles, JANA Txp Post Coordinator Transplant Hepatology 11/07/17 Jack Ordoñez MD [address] [place] [phone] Consulting Physician Transplant Hepatology 01/05/18 documented as of this encounter
--- OUTSIDE RECORDS SUMMARY | 2024-07-12 12:50 | XMS_ITS | Encounter Summary ---
Author Organization [facility] Address [facility] [place] [address] Care Team Providers Care Grip Assembler Name Role Phone Edgar Fournier MD Primary Care Provider [phone] Maile Valles RN Unavailable Unavail able Jack Ordoñez MD Unavailable [phone] Source Comments This information has been [...] release of HIV test results or diagnoses. [id number] Reason for Visit * Reason Onset Date Comments Medication Refill 10/26/2018 Encounter Details Date Type Department Care Team (Late st Contact Info) Description 10/26/[address] [facility] Liver Transplant at Outpatient [address] [phone] Maile Valles, JANA S/P liver transplant ([facility]) (Primary Dx) Social History Tobacco [...] Telephone Encounter - Maile Valles RN - 10/26/2018 5:41 PM EDT Call received from [facility] Statement Processor. Patient out of entecavir, took last dose today. Will order to local [facility]. documented in this encounter Plan of Treatment Upcoming Encounters Date Type Department Care Team (Late st Contact Info) Description 07/15/2024 9:00 AM EST Hospital Encounter [facility] Interventional Radiology [address] [place] [phone] Herve Carrillo MD [address] [facility] [address] [place] [phone] documented as of this encounter Visit Diagnoses Diagnosis S/P liver transplant (CMS-HCC)- Primary documented in this encounter Additional Health Concerns Assessment Noted Time PHQ-9 Depression Total Score: 0 12/06/19 18 3:00 PM EDT documented as of this encounter Care Teams Grip Assembler Relationship Specialty Start Date End Date Edgar Fournier MD [address] [place] [address] [place] [address] PCP - General 08/18/17 06/23/21 Maile Valles, JANA Txp Post Coordinator Transplant Hepatology 11/07/17 Jack Ordoñez MD [address] [place] [phone] Consulting Physician Transplant Hepatology 01/05/18 documented as of this encounter
--- OUTSIDE RECORDS SUMMARY | 2024-07-12 12:50 | XMS_ITS | Encounter Summary ---
Author Organization [facility] Address [address] [place] [address] Care Team Providers Care Marine Diesel Technician Name Role Phone Edgar Fournier MD Primary Care Provider [phone] Maile Valles RN Unavailable Unavail able Jack Ordoñez MD Unavailable [phone] Source Comments This information has been [...] release of HIV test results or diagnoses. [id number] Reason for Visit * Reason Onset Date Comments Results 07/09/2018 Encounter Details Date Type Department Care Team (Late st Contact Info) Description 07/09/[address] [facility] Liver Transplant at Outpatient [address] [address] Maile Valles, JANA Results Social [...] Telephone Encounter - Maile Valles RN - 07/19/2018 3:[address] Ordoñez: No changes * Telephone Encounter - Maile Valles RN - 07/09/2018 1:30 PM EST Lab results from 07/02/18 reviewed. Cr elevated to 2. LFTs stable. FK 1.9, goal 3-8. Will route to Txp Provider for review and recommendations. documented in this encounter Plan of Treatment Upcoming Encounters Date Type Department Care Team (Late st Contact Info) Description 07/15/2024 9:00 AM EST Hospital Encounter [facility] Interventional Radiology [address] [place] [phone] Herve Carrillo MD [address] [facility] [address] [place] [address] documented as of this encounter Visit Diagnoses Not on filedocumented in this encounter Additional Health Concerns Assessment Noted Time PHQ-9 Depression Total Score: 0 12/06/19 18 3:00 PM EDT documented as of this encounter Care Teams Marine Diesel Technician Relationship Specialty Start Date End Date Edgar Fournier MD [address] [place] [address] [place] [address] PCP - General 08/18/17 06/23/21 Maile Valles, JANA Txp Post Coordinator Transplant Hepatology 11/07/17 Jack Ordoñez MD [address] [place] [phone] Consulting Physician Transplant Hepatology 01/05/18 documented as of this encounter
--- OUTSIDE RECORDS SUMMARY | 2024-07-12 12:50 | XMS_ITS | Encounter Summary ---
Author Organization [facility] Address [facility] [place] [address] Care Team Providers Care Manager Surgical Name Role Phone Edgar Fournier MD Primary Care Provider [phone] Maile Valles RN Unavailable Unavail able Jack Ordoñez MD Unavailable [phone] Source Comments This information has been [...] release of HIV test results or diagnoses. [id number] Reason for Visit * Reason Comments Labs Only Encounter Details Date Type Department Care Team (Late st Contact Info) Description 12/13/2018 12:30 PM EDT Specimen [facility] Outreach Lab [address] [place] [phone] Jack Ordoñez MD [address] [place] [phone] Transplanted liver (CMS-HCC); Drug therapy; S/P liver transplant (CMS-HCC); Immunosuppression (CMS-HCC) Social History Tobacco Use Types [...] 9:00 AM EST Hospital Encounter [facility] Interventional Radiology [address] [place] [phone] Herve Carrillo MD [address] [facility] [address] [place] [phone] documented as of this encounter Procedures Procedure Name Priority Date/Time Associated Diagnosis Comments CYTOMEGALOVIRUS DNA, QUANT, RT PCR Routine 12/13/2018 12:32 PM EDT S/P liver transplant (CMS-HCC) Immunosuppression (CMS-HCC) HEPATIC FUNCTION PANEL Routine 9 12:32 PM EDT Transplanted liver (CMS-HCC) Drug therapy RENAL FUNCTION PANEL W/EGFR Routine 12/13/2018 12:32 PM EDT Transplanted liver (CMS-HCC) Drug therapy HEPATITIS B VIRUS (HBV), REAL-TIME PCR, QUANT Routine 12/13/2018 12:32 PM EDT S/P liver transplant (CMS-HCC) Immunosuppression (CMS-HCC) HEPATITIS B CORE ANTIBODY Routine 12/13/2018 12:32 PM EDT S/P liver transplant (CMS-HCC) Immunosuppression (CMS-HCC) TACROLIMUS LEVEL Routine 12/13/2018 12:3 2 PM EDT S/P liver transplant (CMS-HCC) Immunosuppression (CMS-HCC) PROTEIN / CREATININE RATIO, URINE Routine 12/13/2018 12:32 PM EDT S/P liver transplant (CMS-HCC) Immunosuppression (CMS-HCC) DIFFERENTIAL Routine 12/13/2018 12:32 PM EDT Transplanted liver (CMS-HCC) Drug therapy HEPATITIS B SURFACE ANTIBODY, QUANTITATIVE Routine 12/13/2018 12:32 PM EDT S/P liver transplant (CMS-HCC) Immunosuppression (CMS-HCC) HEPATITIS B SURFACE ANTIGEN Routine 12/13/2018 12:32 PM EDT S/P liver transplant (CMS-HCC) Immunosuppression (CMS-HCC) CBC Routine 12/13/2018 12:32 PM EDT Transplanted liver (CMS-HCC) Drug therapy MAGNESIUM Routine 12/13/2018 12:32 PM EDT Transplanted liver (CMS-HCC) Drug therapy HEMOGLOBIN A1C Routine 12/13/2018 12:32 PM EDT S/P liver transplant (CMS-HCC) Immunosuppression (CMS-HCC) LIPID PANEL Routine 12/13/2018 12:32 PM EDT S/P liver transplant (CMS-HCC) Immunosuppression (CMS-HCC) documented in this encounter Results * Protein / creatinine ratio, urine (12/13/2018 12:32 PM EDT) Creatinine, Urine 160.30 mg/dL 12/13/2018 2:17 PM EDT [facility] Comment:Reference range not established for this test. Total Protein, Ur >1000 mg/dL 12/13/2018 2:17 PM EDT [facility] Comment:Reference range not established for this test. Prot/Creat Ratio, Ur See Note ratio 12/13/2018 2:17 PM EDT [facility] Urine specimen (specimen) 12/13/2018 12:32 PM EDT 12/13/2018 1:06 PM EDT [facility]arrative [facility] - 12/13/2018 2:17 PM EDT Unable to calculate result either because contributing result(s) are outside of reportable range or are not available. Jack Ordoñez MD URINE ORDERABLES Final Result Performing Organization Address [facility] de Phone Number [facility] [address] * (ABNORMAL) Hemoglobin A1c (12/13/2018 12:32 PM EDT) Hemoglobin A1C 7.4(H) 4.8 - 6.4 % 12/13/2018 1:27 PM EDT [facility] Comment: Hemoglobin (Hb) A1C Normal: ??4.8 - 5.6% Increased Risk for Diabetes: 5.7 - 6.4% Diagnostic Diabetes: ? >/= ?? 6.5% (Drawn on 2 separate occasions) Glycemic Control for Adults with Diabetes: <7.0% (DCCT / NGSP) Whole blood specimen (specimen) 12/13/2018 12:32 PM EDT 12/13/2018 12:58 PM EDT Jack Ordoñez MD LAB BLOOD ORDERABLES Final Re sult Performing Organization Address [facility] de Phone Number [facility] [address] [facility] * (ABNORMAL) Lipid Profile (12/13/2018 12:32 PM EDT) Cholesterol, Total 262(H) 0 - 200 mg/dL 12/13/2018 1:30 PM EDT [facility] Triglycerides 881(H) 10 - 149 mg/dL 12/13/2018 1:30 PM EDT [facility] HDL 28(L) 60 - 92 mg/dL 12/13/2018 1:30 PM EDT [facility] Comment: ?LIPID PROFILE INTERPRETATION ?CHOLESTEROL,TOTAL(mg/dL) [...] See Note mg/dL 9 1:30 PM EDT [facility] Comment:LDL calculation is i nvalid because the triglyceride level is equal to or greater than 400 mg/dl. Plasma specimen (specimen) 12/13/2018 12:32 PM EDT 12/13/2018 12:58 PM EDT Narrative [facility] - 12/13/2018 1:30 PM EDT Fasting not necessary. Must the patient be fasting for this test?->No us Jack Ordoñez MD LAB BLOOD ORDERABLES Final Re sult [facility] [address] [address], [facility] * Hepatitis B Virus (HBV), PCR, Quant (12/13/2018 12:32 PM EDT) Hep B Viral DNA IU/ML Not Detected IU/mL 12/18/2018 2:08 PM EDT [facility] Comment:Test methodology for HBV DNA quantification is an FDA-approved nucleic acid amplification assay. The Lower Limit of Quantitation (LLOQ) is 20 IU/mL. The linear range of the assay is 20- 170,000,000 IU/mL. log 10 HBV as IU/mL See Note log 10 IU/mL 12/18/2018 2:08 PM EDT [facility] Comment: Unable to calculate result either because contributing result(s) are outside of reportable range or are not available. HBV DNA not detected. Serum specimen (specimen) 12/13/2018 12:32 PM EDT 12/13/2018 1:47 PM EDT Jack Ordoñez MD LAB BLOOD ORDERABLES Final Re sult Performing Organization Address [facility] de Phone Number [address] * Hepatitis B surface antigen (12/13/2018 12:32 PM EDT) Hep B Surface Ag Nonreactive Nonreactive 12/13/2018 1:50 PM EDT [facility] Comment:Health Department no tified in accordance with reportable infectious disease guidelines. Serum specimen (specimen) 12/13/2018 12:32 PM EDT 12/13/2018 12:58 PM EDT Narrative [facility] - 12/13/2018 1:50 PM EDT Specimen is considered negative for HBsAg. Jack Ordoñez MD LAB BLOOD ORDERABLES Final Re sult Performing Organization Address [facility] de Phone Number [address] * Hepatitis B Core Antibody (12/13/2018 12:32 PM EDT) Hep B Core Total Ab Nonreactive Nonreactive 12/13/2018 1:50 PM EDT [facility] Comment:Health Department no tified in accordance with reportable infectious disease guidelines. Serum specimen (specimen) 12/13/2018 12:32 PM EDT 12/13/2018 12:58 PM EDT [facility] - 12/13/2018 1:50 PM EDT A nonreactive final interpretation indicates that anti-HBc antibodies were not detected in the sample; it is possible that the individual is not infected with HBV. Jack Ordoñez MD LAB BLOOD ORDERABLES Final Re sult Performing Organization Address [facility] Co de Phone Number [facility] [address] * (ABNORMAL) Hepatitis B Surface Antibody, Quantitative (12/13/2018 12:32 PM EDT) HBSAB NUMBER 92.81(H) 0.00 - 7.99 mIU/mL 12/13/2018 2:17 PM EDT [facility] Hep B S Ab Reactive( A) Nonreactive 12/13/2018 2:17 PM EDT [facility] Serum specimen (specimen) 12/13/2018 12:32 PM EDT 12/13/2018 12:58 PM EDT [facility] - 12/13/2018 2:17 PM EDT Individual is considered immune to HBV infection. aJck Ordoñez MD LAB BLOOD ORDERABLES Final Re sult Performing Organization Address [facility] de Phone Number [facility] [address] [facility] * (ABNORMAL) Tacrolimus level (12/13/2018 12:32 PM EDT) Tacrolimus Lvl 2.6(L) 5.0 - 20.0 ng/mL 12/14/2018 10:48 AM EDT [facility] Comment: Detection limit: ??2 ng/mL. ??Performed via chemiluminescent microparticle immunoassay on the [employer] i1000. Whole blood specimen (specimen) 12/13/2018 12:32 PM EDT 12/13/2018 12:58 PM EDT [facility] - 12/14/2018 10:48 AM EDT Standing labs every 2 weeks. Please fax results to [phone]; Critical results call [phone]. Jack Ordoñez MD LAB BLOOD ORDERABLES Final Re sult Performing Organization Address [facility] Co de Phone Number [facility] [address] [facility]. [address] * Cytomegalovirus DNA, Quant, RT PCR (12/13/2018 12:32 PM EDT) CMV DNA Qnt <137 IU/mL 12/14/2018 5:22 PM EDT [facility] Comment:Test methodology for CMV quantification is an FDA-approved nucleic acid amplification assay. The Lower Limit of Quantitation (LLOQ) is 137 IU/mL; the linear range is 137- 9,100,000 IU/mL. The limit of Detection is (LoD) is 91 IU/mL. Log10 CMV Qn DNA PI See Note log 10 IU/mL 12/14/2018 5:22 PM EDT [facility] Comment: CMV DNA has been detected, but not quantifiable. ??CMV DNA is below the LLoQ for the assay. ??Log IU/mL cannot be calculated. Plasma specimen (specimen) 12/13/2018 12:32 PM EDT 12/13/2018 2:34 PM EDT [facility] - 12/14/2018 5:22 PM EDT Please fax results to [phone]. Jack Ordoñez MD LAB BLOOD ORDERABLES Final Re sult Performing Organization Address [facility]/ZIP Co de Phone Number [facility] [address] * Magnesium (12/13/2018 12:32 PM EDT) Pathologist [facility] Magnesium 1.6 1.5 - 2.5 mg/dL 12/13/2018 1:30 PM EDT [facility] Plasma specimen (specimen) 12/13/2018 12:32 PM EDT 12/13/2018 12:58 PM EDT Narrative [facility] - 12/13/2018 1:30 PM EDT Standing labs every 2 weeks. Please fax results to [phone]; Critical results call [phone] Jack Ordoñez MD LAB BLOOD ORDERABLES Final Re sult Performing Organization Address City/[facility]/ZIP Co de Phone Number [facility] [address] * (ABNORMAL) Renal Function Panel w/EGFR (12/13/2018 12:32 PM EDT) Sodium 138 133 - 146 mmol/L 12/13/2018 1:30 PM EDT [facility] Potassium 4.8 3.5 - 5.3 mmol/L 12/13/2018 1:30 PM EDT [facility] Chloride 109 98 - 110 mmol/L 12/13/2018 1:30 PM EDT [facility] CO2 22 21 - 33 mmol/L 12/13/2018 1:30 PM EDT [facility] Anion Gap 7 3 - 16 mmol/L 12/13/2018 1:30 PM EDT [facility] BUN 30(H) 7 - 25 mg/dL 12/13/2018 1:30 PM EDT [facility] Creatinine 2.76(H) 0.60 - 1.30 mg/dL 12/13/2018 1:30 PM EDT [facility] Glucose 211(H) 70 - 100 mg/dL 12/13/2018 1:30 PM EDT [facility] Calcium 8.1(L) 8.6 - 10.3 mg/dL 12/13/2018 1:30 PM EDT [facility] Phosphorus 3.4 2.1 - 4.7 mg/dL 12/13/2018 1:30 PM EDT [facility] Albumin 3.3(L) 3.5 - 5.7 g/dL 12/13/2018 1:30 PM EDT [facility] Osmolality, Calculated 298 278 - 305 mOsm/kg 12/13/2018 1:30 PM EDT [facility] eGFR AA CKD-EPI 31 See note. 9 1:30 PM EDT [facility] Comment: As of 2015 the [...] estimate glomerular filtration rate. ??Jennifer Director Of Physical Therapy Med. 2009:150(9):604-12 eGFR NONAA CKD-EPI 27 See note. 2018 1:30 PM EDT [facility] Comment: As of 2015 the [...] estimate glomerular filtration rate. ??Jennifer Director Of Physical Therapy Med. 2009:150(9):604-12 Plasma specimen (specimen) 12/13/2018 12:32 PM EDT 12/13/2018 12:58 PM EDT Narrative [facility] - 12/13/2018 1:30 PM EDT Standing labs every 2 weeks. Please fax results to [phone]; Critical results call [phone] us Jack Ordoñez MD LAB BLOOD ORDERABLES Final Re sult [facility] [address] [place] [address], [facility] * (ABNORMAL) Hepatic Function Panel (12/13/2018 12:32 PM EDT) Total Bilirubin 0.2 0.0 - 1.5 mg/dL 12/13/2018 1:30 PM EDT [facility] Bilirubin, Direct 0.03 0.00 - 0.40 mg/dL 12/13/2018 1:30 PM EDT [facility] AST 15 13 - 39 U/L 12/13/2018 1:30 PM EDT [facility] ALT 11 7 - 52 U/L 12/13/2018 1:30 PM EDT [facility] Alkaline Phosphatase 132(H) 36 - 125 U/L 12/13/2018 1:30 PM EDT [facility] Total Protein 5.3(L) 6.4 - 8.9 g/dL 12/13/2018 1:30 PM EDT [facility] Albumin 3.3(L) 3.5 - 5.7 g/dL 12/13/2018 1:30 PM EDT [facility] Bilirubin, Indirect 0.17 0.00 - 1.10 mg/dL 12/13/2018 1:30 PM EDT [facility] Plasma specimen (specimen) 12/13/2018 12:32 PM EDT 12/13/2018 12:58 PM EDT Narrative [facility] - 12/13/2018 1:30 PM EDT Standing labs every 2 weeks. Please fax results to [phone]; Critical results call [phone] us Jack Ordoñez MD LAB BLOOD ORDERABLES Final Re sult [facility] [address] [place] [address], [facility] * Differential (12/13/2018 12:32 PM EDT) Neutrophils Relative 59.4 40.0 - 80.0 % 12/13/2018 1:07 PM EDT [facility] Lymphocytes Relative 28.2 15.0 - 45.0 % 12/13/2018 1:07 PM EDT [facility] Monocytes Relative 7.4 0.0 - 12.0 % 12/13/2018 1:07 PM EDT [facility] Eosinophils Relative 4.6 0.0 - 8.0 % 12/13/2018 1:07 PM EDT [facility] Basophils Relative 0.4 0.0 - 1.0 % 12/13/2018 1:07 PM EDT [facility] nRBC 0 0 - 0 /100 WBC 12/13/2018 1:07 PM EDT [facility] Neutrophils Absolute 2,376 1,500 - 7,800 /uL 12/13/2018 1:07 PM EDT [facility] Lymphocytes Absolute 1,128 850 - 3,900 /uL 12/13/2018 1:07 PM EDT [facility] Monocytes Absolute 296 200 - 950 /uL 12/13/2018 1:07 PM EDT [facility] Eosinophils Absolute 184 15 - 500 /uL 12/13/2018 1:07 PM EDT [facility] Basophils Absolute 16 0 - 200 /uL 12/13/2018 1:07 PM EDT [facility] Whole blood specimen (specimen) 12/13/2018 12:32 PM EDT 12/13/2018 12:58 PM EDT [facility] - 12/13/2018 1:07 PM EDT Standing labs every 2 weeks. Please fax results to [phone]; Critical results call [phone] Jack Ordoñez MD LAB BLOOD ORDERABLES Final Re sult [facility] [address] [address] * (ABNORMAL) CBC (12/13/2018 12:32 PM EDT) WBC 4.0 3.8 - 10.8 10E3/uL 12/13/2018 1:07 PM EDT [facility] RBC 3.44(L) 4.20 - 5.80 10E6/uL 12/13/2018 1:07 PM EDT [facility] Hemoglobin 9.9(L) 13.2 - 17.1 g/dL 12/13/2018 1:07 PM EDT [facility] Hematocrit 29.0(L) 38.5 - 50.0 % 12/13/2018 1:07 PM EDT [facility] MCV 84.4 80.0 - 100.0 fL 12/13/2018 1:07 PM EDT [facility] MCH 28.9 27.0 - 33.0 pg 12/13/2018 1:07 PM EDT [facility] MCHC 34.2 32.0 - 36.0 g/dL 12/13/2018 1:07 PM EDT [facility] RDW 14.2 11.0 - 15.0 % 12/13/2018 1:07 PM EDT [facility] Platelets 171 140 - 400 10E3/uL 12/13/2018 1:07 PM EDT [facility] MPV 7.8 7.5 - 11.5 fL 12/13/2018 1:07 PM EDT [facility] Whole blood specimen (specimen) 12/13/2018 12:32 PM EDT 12/13/2018 12:58 PM EDT Narrative [facility]ALTH [facility] - 12/13/2018 1:07 PM EDT Standing labs every 2 weeks. Please fax results to [phone]; Critical results call [phone] us Jack Ordoñez MD LAB BLOOD ORDERABLES Final Re sult [facility] [address] [place], [place] [id number] [place] [address] documented in this encounter Visit Diagnoses Diagnosis Transplanted liver (CMS-HCC) Liver replaced by transplant Drug therapy Encounter for other specified aftercare S/P liver transplant (CMS-HCC) Immunosuppression (CMS-HCC) documented in this encounter Additional Health Concerns Assessment Noted Time PHQ-9 Depression Total Score: 0 12/06/19 18 3:00 PM EDT documented as of this encounter Care Teams Manager Surgical Relationship Specialty Start Date End Date Edgar Fournier MD [address] [place] [address] [place] [address] PCP - General 08/18/17 06/23/21 Maile Valles, RN Txp Post Coordinator Transplant Hepatology 11/07/17 Jack Ordoñez MD [address] [place] [phone] Consulting Physician Transplant Hepatology 01/05/18 documented as of this encounter
--- OUTSIDE RECORDS SUMMARY | 2024-07-12 12:50 | XMS_ITS | Encounter Summary ---
Author Organization Health Address [facility] [place] [address] Care Team Providers Care Upholstery Repairer Name Role Phone Edgar Fournier MD Primary Care Provider [phone] Maile Valles RN Unavailable Unavail able Jack Ordoñez MD Unavailable [phone] Source Comments This information has been [...] release of HIV test results or diagnoses. [id number] Encounter Details Date Type Department Care Team (Late st Contact Info) Description 10/30/2018 Chart Note [facility] [place] [phone] Latrice Brice MA fk is still pending Social History Tobacco Use Types Packs/Day Years [...] of this encounter Progress Notes * Latrice Brice MA - 10/30/2018 2:34 PM EDT fk is still pending documented in this encounter Plan of Treatment Upcoming Encounters Date Type Department Care Team (Late st Contact Info) Description 07/15/2024 9:00 AM EST Hospital Encounter [facility] Interventional Radiology [address] [place] [phone] Herve Carrillo MD [address] [facility] [address] Surgery [place] [phone] documented as of this encounter Procedures Procedure Name Priority Date/Time Associated Diagnosis Comments HEPATITIS B,C PROFILE Routine 10/23/2018 1:46 PM EDT HEPATIC FUNCTION PANEL Routine 10/23/2018 1:46 PM EDT CYCLOSPORINE LEVEL Routine 10/23/2018 1: 46 PM EDT CBC AND DIFFERENTIAL Routine 10/23/2018 1:46 PM EDT MAGNESIUM Routine 10/23/2018 1:46 PM EDT RENAL FUNCTION PANEL W/O EGFR Routine 10/23/2018 1:46 PM EDT documented in this encounter Results * Magnesium (10/23/2018 1:46 PM EDT) Magnesium 1.92 1.6 - 2.4 mg/dL EXTERNAL Plasma specimen (specimen) us Historical Provider LAB BLOOD ORDERABLES Yoselin robles Result EXTERNAL * Renal Function Panel w/o EGFR (10/23/2018 1:46 PM EDT) [facility] Albumin 2.88 EXTERNAL Blood specimen (specimen) Result [facility] Provider MD LAB BLOOD ORDERABLES Yoselin l Result EXTERNAL * Cyclosporine level (10/23/2018 1:46 PM EDT) [facility] Cyclosporine, Blood none detected EXTERNAL Whole blood specimen (specimen) Result [facility] Provider MD LAB BLOOD ORDERABLES Yoselin l Result Performing Organization Address City/[facility]/ZIP Co de Phone Number EXTERNAL * (ABNORMAL) CBC and differential (10/23/2018 1:46 PM EDT) [facility] Hemoglobin 10.2(A) 13.5 - 17.5 g/dL EXTERNAL Hematocrit 29(A) 41 - 53 % EXTERNAL RDW 13.2 11.5 - 14.5 % EXTERNAL Lymphocytes Absolute 1.36 /??L EXTERNAL Monocytes Absolute 0.28 /??L EXTERNAL Eosinophils Absolute 0.11 /??L EXTERNAL Basophils Absolute 0.01 /??L EXTERNAL Neutrophils Relative 60 46 - 78 % EXTERNAL Lymphocytes Relative 30.9 18 - 52 % EXTERNAL Monocytes Relative 6.4 3 - 10 % EXTERNAL Eosinophils Relative 2.5 0 - 6 % EXTERNAL Basophils Relative 0.2 0 - 3 % EXTERNAL Neutrophils Absolute 2.64 /??L EXTERNAL MCH 29.1 26.0 - 34.0 pg EXTERNAL MCHC 35.2 30 - 37 g/dL EXTERNAL MCV 82.9 82.0 - 108.0 fL EXTERNAL Platelets 203 K/??L EXTERNAL RBC 3.5(A) 4.50 - 5.90 10^6/??L EXTERNAL WBC 4.4 10^3/mL EXTERNAL Blood specimen (specimen) Result [facility] Provider MD LAB BLOOD ORDERABLES Yoselin l Result EXTERNAL * Hepatitis B,C Profile (10/23/2018 1:46 PM EDT) Hep B Surface Ag Negative EXTERNAL Hep B Core Total Ab Positive EXTERNAL Blood specimen (specimen) Historical Provider MD LAB BLOOD ORDERABLES Yoselin l Result EXTERNAL * (ABNORMAL) Hepatic Function Panel (10/23/2018 1:46 PM EDT) Alkaline Phosphatase 214.8 U/L EXTERNAL ALT 18 U/L EXTERNAL AST 20.4 U/L EXTERNAL Total Bilirubin 0.12 0.1 - 1.4 mg/dL EXTERNAL Bilirubin, Direct 0(A) 0.01 - 0.4 mg/dL EXTERNAL Total Protein 6.48 6.4 - 8.2 g/dL EXTERNAL Plasma specimen (specimen) Result [facility] Historical Provider LAB BLOOD ORDERABLES Yoselin l Result Performing Organization Address City/[facility]/ZIP Co de Phone Number EXTERNAL documented in this encounter Visit Diagnoses Not on filedocumented in this encounter Additional Health Concerns Assessment Noted Time PHQ-9 Depression Total Score: 0 12/06/19 18 3:00 PM EDT documented as of this encounter Care Teams Upholstery Repairer Relationship Specialty Start Date End Date Edgar Fournier MD [address] [place] [phone] PCP - General 08/18/17 06/23/21 Malie Valles RN Txp Post Coordinator Transplant Hepatology 11/07/17 Jack Ordoñez MD [facility] [place] [phone] Consulting Physician Transplant Hepatology 01/05/18 documented as of this encounter
--- OUTSIDE RECORDS SUMMARY | 2024-07-12 12:50 | XMS_ITS | Encounter Summary ---
Author Organization Health Address [facility] [place]note 2[place]0 [place] [address] Care Team Providers Care Behavioral Health Worker Name Role Phone Edgar Fournier MD Primary Care Provider [phone] Maile Valles RN Unavailable Unavail able Jack Ordoñez MD Unavailable [phone] Source Comments This information has been [...] release of HIV test results or diagnoses. [id number] Encounter Details Date Type Department Care Team (Late st Contact Info) Description 09/04/2018 Telephone [facility] Liver Transplant at Outpatient [address] [address] Cayetano Park MA Social History [...] Telephone Encounter - Cayetano Park MA - 09/04/2018 2:27 PM EST I spoke with Aiden and he said that his legs were swollen and he had a lot of abdominal pain. I spoke with his coordinator and she advised he needed to go to ER. I told Aiden that he needed to go to the ER. Aiden said he would go. documented in this encounter Plan of Treatment Upcoming Encounters Date Type Department Care Team (Late st Contact Info) Description 07/15/2024 9:00 AM EST Hospital Encounter [facility] Interventional Radiology [address] [place] [phone] Herve Carrillo MD [address] [facility] 3200 [place] [phone] documented as of this encounter Visit Diagnoses Not on filedocumented in this encounter Additional Health Concerns Assessment Noted Time PHQ-9 Depression Total Score: 0 12/06/19 18 3:00 PM EDT documented as of this encounter Care Teams Behavioral Health Worker Relationship Specialty Start Date End Date Edgar Fournier MD [address] [place] [address] [place] [address] PCP - General 08/18/17 06/23/21 Maile Valles, RN Txp Post Coordinator Transplant Hepatology 11/07/17 Jack Ordoñez MD [address] [place] [phone] Consulting Physician Transplant Hepatology 01/05/18 documented as of this encounter
--- OUTSIDE RECORDS SUMMARY | 2024-07-12 12:50 | XMS_ITS | Encounter Summary ---
Author Organization [facility] Address [address] [place] [address] Care Team Providers Care Final Assembler Name Role Phone Edgar Fournier MD Primary Care Provider [phone] Maile Valles RN Unavailable Unavail able Jack Ordoñez MD Unavailable [phone] Source Comments This information has been [...] release of HIV test results or diagnoses. [id number] Reason for Visit * Reason Comments Advice Only Encounter Details Date Type Department Care Team (Late st Contact Info) Description 06/27/2018 Telephone [facility] G[facility]ology [facility] [place] [facility] [address] [facility] [address] [place] [address] Jack Ordoñez MD [address] [place] [address] Advice Only Social History Tobacco Use Types [...] Telephone Encounter - Maile Valles RN - 06/28/2018 11:09 AM EST Med list as recent as last office visit faxed to given number. * Telephone Encounter - Ginger Stevenson - 06/27/2018 12:56 PM EST Nadya/ [facility] requesting a copy of pt's medication list Nadya states any information MD lucero regarding pt's medication will be helpful. Pls follow up ph [phone] Pls fax to [phone] documented in this encounter Plan of Treatment Upcoming Encounters Date Type Department Care Team (Late st Contact Info) Description 07/15/2024 9:00 AM EST Hospital Encounter [facility] Interventional Radiology [address] [place] [phone] Herve Carrillo MD 3130 [facility] 3200 [place] [phone] documented as of this encounter Visit Diagnoses Not on filedocumented in this encounter Additional Health Concerns Assessment Noted Time PHQ-9 Depression Total Score: 0 12/06/19 18 3:00 PM EDT documented as of this encounter Care Teams Final Assembler Relationship Specialty Start Date End Date Edgar Fournier MD [address] [place] [address] [place] [address] PCP - General 08/18/17 06/23/21 Maile Valles, JANA Txp Post Coordinator Transplant Hepatology 11/07/17 Jack Ordoñez MD [facility]8 [place] [address] Consulting Physician Transplant Hepatology 01/05/18 documented as of this encounter
--- OUTSIDE RECORDS SUMMARY | 2024-07-12 12:50 | XMS_ITS | Encounter Summary ---
Author Organization Health Address [facility] [place] [place] [address] Care Team Providers Care Manager Compensation Name Role Phone Edgar Fournier MD Primary Care Provider [phone] Maile Valles RN Unavailable Unavail able Jack Ordoñez MD Unavailable [phone] Source Comments This information has been [...] release of HIV test results or diagnoses. [id number] Encounter Details Date Type Department Care Team (Late st Contact Info) Description 11/01/2018 Chart Note [facility] Liver Transplant at Outpatient [facility] [phone] Latrice Brice MA Social History Tobacco Use [...] Encounter [facility] Interventional Radiology [address] [place] [address] Herve Carrillo MD 3130 [facility] [address] [place] [address] documented as of this encounter Procedures Procedure Name Priority Date/Time Associated Diagnosis Comments TACROLIMUS LEVEL Routine 10/23/2018 1:46 PM EDT documented in this encounter Results * (ABNORMAL) Tacrolimus level (10/23/2018 1:46 PM EDT) Tacrolimus by Immunoassay -- Tacrolimus Lvl 1.3(A) 6 - 15 ng/mL Whole blood specimen (specimen) us Historical Provider LAB BLOOD ORDERABLES Yoselin l Result documented in this encounter Visit Diagnoses Not on filedocumented in this encounter Additional Health Concerns Assessment Noted Time PHQ-9 Depression Total Score: 0 12/06/19 18 3:00 PM EDT documented as of this encounter Care Teams Manager Compensation Relationship Specialty Start Date End Date Edgar Fournier MD [address] [place] [address] [place] [address] PCP - General 08/18/17 06/23/21 Maile Valles, JANA Txp Post Coordinator Transplant Hepatology 11/07/17 Jack Ordoñez MD [address] [place] [phone] Consulting Physician Transplant Hepatology 01/05/18 documented as of this encounter
--- OUTSIDE RECORDS SUMMARY | 2024-07-12 12:50 | XMS_ITS | Encounter Summary ---
Author Organization Health Address [facility] [place] [address] Care Team Providers Care Clerical Production Worker Name Role Phone Edgar Fournier MD Primary Care Provider [phone] Maile Valles RN Unavailable Unavail able Jack Ordoñez MD Unavailable [phone] Source Comments This information has been [...] release of HIV test results or diagnoses. [id number] Encounter Details Date Type Department Care Team (Late st Contact Info) Description 08/10/2018 Telephone [facility] Liver Transplant at Outpatient [address] [address] Melvin Petty MA Social History [...] Telephone Encounter - Melvin Petty MA - 08/10/2018 3:34 PM EST Called patient no answer, have not gotten labs, patient voicemail is not set up so I could not leave a message. documented in this encounter Plan of Treatment Upcoming Encounters Date Type Department Care Team (Late st Contact Info) Description 07/15/2024 9:00 AM EST Hospital Encounter [facility] Interventional Radiology [address] [place] [phone] Herve Carrillo MD 3130 [facility] 3200 Surgery [place] [phone] documented as of this encounter Visit Diagnoses Not on filedocumented in this encounter Additional Health Concerns Assessment Noted Time PHQ-9 Depression Total Score: 0 12/06/19 18 3:00 PM EDT documented as of this encounter Care Teams Clerical Production Worker Relationship Specialty Start Date End Date Edgar Fournier MD [address] [place] [address] [place] [address] PCP - General 08/18/17 06/23/21 Maile Valles, RN Txp Post Coordinator Transplant Hepatology 11/07/17 Jack Ordoñ[place] [address] [place] [phone] Consulting Physician Transplant Hepatology 01/05/18 documented as of this encounter
--- OUTSIDE RECORDS SUMMARY | 2024-07-12 12:50 | XMS_ITS | Encounter Summary ---
Author Organization [facility] Address [address] [place] [address] Care Team Providers Care Gang Saw Operator Name Role Phone Edgar Fournier MD Primary Care Provider [phone] Maile Valles RN Unavailable Unavail able Jack Ordoñez MD Unavailable [phone] Source Comments This information has been [...] release of HIV test results or diagnoses. [id number] Health Encounter Details Date Type Department Care Team (Late st Contact Info) Description 09/13/2018 12:35 PM EST Office Visit [facility] Liver Transplant at Outpatient [facility] [address] [place] [phone] Jack Ordoñez MD [address] [place] [phone] S/P liver transplant ([facility]) (Primary Dx); Immunosuppression ([facility]); CKD (chronic kidney disease) stage 3, GFR 30-59 ml/min ([facility]) Social History Tobacco Use Types [...] Sign Reading Time Taken Comments Blood Pressure 162/94 09/13/2018 12:13 PM EST Took manual fist BP was 209/96 Pulse 82 09/13/2018 12:13 PM EST Temperature 36.9 ??C (98.5 ??F) 09/13/2018 1 2:13 PM EST Respiratory Rate - - Oxygen Saturation 94% 09/13/2018 12: 13 PM EST Inhaled Oxygen Concentration 94% 09/13/2018 12:13 PM EST Weight 132.4 kg (291 lb 12.8 oz) 09/13/2018 12:13 PM EST Height - - Body Mass Index 45.7 06/05/2018 12:13 PM EDT documented in this encounter Patient Instructions * Patient Instructions* Jack Ordoñez MD - 09/13/2018 12:35 PM EST Plan: 1. Continue Envarsus 2 mg daily. [...] 9. ??Continue Entecavir daily for HBcAb+ liver. 10. Will send 1 year labs. 11. Return in 3 months. documented in this encounter Progress Notes * Cayetano Park MA - 09/13/2018 12:35 PM EST Review of Systems All other systems reviewed and are negative. * Jack Ordoñez MD - 09/13/2018 12:35 PM EST Subjective: Aiden Stauffer is a 43 y.o. 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 The patient was last seen in Apr 2018. He received a [facility] high risk donor, who was HBV [...] Envarsus. His liver tests are normal. Cr 2. Co-morbidities include hypertension and DM for which he is on insulin. Still struggling with HTN. He presents today for followup. He is [...] switch to cyclosporine, CKD with Cr of 1.9, and HTN. He received a HBV ALEXANDRA positive and HCV antibody / ALEXANDRA negative organ and remains on Entecavir. Recommend all family members / sexual partners be vaccinated to Hep B. He was switched to Envarsus for renal sparing effects and low cyclosporine levels. His liver labs are normal. Continue Envarsus 2 mg daily. ??Continue Cellcept 750 mg twice daily??Would check labs every month including: CBC, renal, hepatic profile,and tacrolimus trough. ??Would recommend annual visit to Dermatology for skin cancer surveillance.?? Please use SPF 30 or higher sunscreen, hat, long-sleeves and sunglasses while in the sun. ??Please continue age appropriate cancer screening including: colonoscopy, prostate exam. ??Will check HgA1C,Vit D, Lipid profile, and urine protein / Cr ratio on annual basis with your PCP. ??Please discuss with your blood pressure with your PCP. ??Continue Entecavir daily for HBcAb+ liver. Will send 1 year labs. Return in 3 months. Plan: 1. Continue Envarsus 2 mg daily. [...] 9. ??Continue Entecavir daily for HBcAb+ liver. 10. Will send 1 year labs. 11. Return in 3 months. * Maile Valles RN - 09/13/2018 12:35 PM EST After visit summary including patient instructions reviewed with patient and patient's . Medication list reviewed and updated. Checked with patient to see if prescription refills and/or lab orders were needed. Updated preferred pharmacy and preferred lab information in patient demographics. Care coordinated with other team members and other medical providers as needed. Patient presents with the following needs: - Patient given lab orders to take to his local lab for PHS and 1 year labs. * Bridgett Weaver PharmD - 09/13/2018 12:35 PM EST Transplant Pharmacist Assessment and Recommendations: Current Outpatient Prescriptions Medication Sig ??? aspirin 81 MG chewable tablet Chew 1 tablet (81 mg total) by mouth daily with breakfast. ??? blood sugar diagnostic Strp Use to test blood sugar up to 4 times a day. Diagnosis for use: E 9.65. For use with One Touch Verio meters. ??? blood-glucose meter (ONETOUCH VERIO SYSTEM) [facility] Use as instructed. ??? carvedilol (COREG) 25 MG tablet Take 2 tablets (50 mg total) by mouth 2 times a day with meals. ??? cloNIDine HCl (CATAPRES) 0.1 MG tablet Take 0.1 mg by mouth if needed. ??? doxazosin (CARDURA) 8 MG tablet 8 mg 2 times a day. ??? entecavir (BARACLUDE) 1 MG tablet Take 1 tablet (1 mg total) by mouth daily. ??? EPITOL 200 mg tablet ??? ergocalciferol (VITAMIN D2) 50,000 unit capsule Take 50,000 Units by mouth once a week. ??? gabapentin (NEURONTIN) 600 MG tablet Take 1,200 mg by mouth 3 times a day. ??? insulin glulisine U-100 (APIDRA U-100 INSULIN) [...] ??? lancets (ONETOUCH DELICA LANCETS) 33 gauge [facility] Use 1 strip as directed 4 times daily before meals and at bedtime. ??? mycophenolate (CELLCEPT) 250 mg capsule Take 3 capsules (750 mg total) by mouth 2 times a day. ??? NIFEdipine (PROCARDIA-XL) 90 MG (OSM) 24 hr tablet Take 90 mg by mouth 2 times a day. ??? ondansetron (ZOFRAN-ODT) 4 MG disintegrating tablet ??? pen needle, diabetic 32 gauge x 5/32 Ndle Use as directed to inject insulin 4 times daily. ??? pen needle, diabetic 32 gauge x 532 Ndle For use with insulin pen. Use as instructed. ??? tacrolimus (ENVARSUS XR) 1 mg Tb24 Take 2 mg by mouth daily. No current facility-administered medications for this visit. Immunosuppression: THYMO BRIDGE POD 340 Perioperative immunosuppression regimen included: steroid taper, MMF, tacrolimus and Thymoglobulin (175mg x 1 dose on 10/09/17) Currently on Envarsus XR 2 mg daily and mycophenolate 750mg bid. MMF increased 04/10/18 for [...] ?? Goal Tacrolimus level is 3-8 ng/mL. Latest Tacrolimus level: Tacrolimus by Immunoassay Date Value Ref Range Status 08/13/2018 2.6 Final 07/02/2018 -- Final Tacrolimus Lvl Date Value Ref Range Status 08/13/2018 -- 6 - 15 ng/mL Final 07/02/2018 1.9 (A) 6 - 15 ng/mL Final Rejection in the past 12 months: none ?? Prophylaxis:?? ASA: hepatic artery reconstruction Anti-HBcAb +/ALEXANDRA + donor: No HBIG given since HepB surface antibody 171. On entecavir 1 mg daily for life ?? Blood Sugars: diabetic prior to transplant. ??PCP managing Reports difficulty affording Apidra with new insurance, and PCP not wanting to change medications without liver transplant team approval. Discussed that there is no insulin that he cannot use from a liver transplant perspective. Defer to PCP for management. ?? Blood pressure: on coreg and nifedipine, prn clonidine 162/94 mmHg today. Better controlled than last visit. Defer to PCP/pouring crane operator for management. ? Other: Renal dysfunction: Creatinine somewhat stable since 02/2018. Continue to monitor. Patient stated pouring crane operator recommended switching off of tacrolimus due to effects on kidney. Discussed that we have other anti-rejection options but they are not as effective and we are keeping his tacrolimus level as low as possible. Patient in prefers to stay on tacrolimus. Interacting medications: Patient on carbamazepine (Epitol) - same dose since January 2018. Advised patient to call clinic if dose changes, as he stated he may start taking it twice a day. Would expect tacrolimus level to decrease if carbamazepine dose increased. Adherence: Patient reports missing 0??doses in the past 7 days The following barriers to adherence have been identified: None It is my assessment that the patient demonstrates good??adherence and medication understanding. ?? assists with medication management. ??She reviewed medication card with me in clinic today. ?? Recommendations: 1. IS: LFTs stable, recommend no change; monitor more closely if carbamazepine dose change 2. BP: to see PCP for management 3. BS: to see PCP for management documented in this encounter Plan of Treatment Upcoming Encounters Date Type Department Care Team (Late st Contact Info) Description 07/15/2024 9:00 AM EST Hospital Encounter [facility] Interventional Radiology [address] [place] [phone] Herve Carrillo MD 3[address] [facility] 3200 [place] [phone] documented as of this encounter Visit Diagnoses Diagnosis S/P liver transplant (CMS-HCC)- Primary Immunosuppression (CMS-HCC) CKD (chronic kidney disease) stage 3, GFR 30-59 ml/min (CMS-HCC) Chronic kidney disease, Stage III (moderate) documented in this encounter Additional Health Concerns Assessment Noted Time PHQ-9 Depression Total Score: 0 12/06/19 18 3:00 PM EDT documented as of this encounter Care Teams Gang Saw Operator Relationship Specialty Start Date End Date Edgar Fournier MD [address] [place] [address] [place] [address] PCP - General 08/18/17 06/23/21 Maile Valles, JANA Txp Post Coordinator Transplant Hepatology 11/07/17 Jack Ordoñez MD [address] [place] [phone] Consulting Physician Transplant Hepatology 01/05/18 documented as of this encounter
--- OUTSIDE RECORDS SUMMARY | 2024-07-12 12:50 | XMS_ITS | Encounter Summary ---
Author Organization [facility] Address [facility] [place] [place] [address] Care Team Providers Care Photoengraving Etcher Apprentice Name Role Phone Edgar Fournier MD Primary Care Provider [phone] Maile Valles RN Unavailable Unavail able Jack Ordoñez MD Unavailable [phone] Source Comments This information has been [...] release of HIV test results or diagnoses. [id number] Reason for Visit * Reason Onset Date Comments Medication Refill 10/16/2018 Encounter Details Date Type Department Care Team (Late st Contact Info) Description 10/16/2018 Refill [facility] Liver Transplant at Outpatient [address] [address] Lynnette Muhammad MA S/P liver transplant ([facility]); Immunosuppression ([facility]) Social History Tobacco Use Types Packs/Day Years [...] [facility] Interventional Radiology [address] [place] [phone] Herve Carrillo MD 3130 [facility] 3200 Surgery [place] [phone] documented as of this encounter Visit Diagnoses Diagnosis S/P liver transplant (CMS-HCC) Immunosuppression (CMS-HCC) documented in this encounter Additional Health Concerns Assessment Noted Time PHQ-9 Depression Total Score: 0 12/06/19 18 3:00 PM EDT documented as of this encounter Care Teams Photoengraving Etcher Apprentice Relationship Specialty Start Date End Date Edgar Fournier MD [address] [place] [address] PCP - General 08/18/17 06/23/21 Maile Valles, JANA Txp Post Coordinator Transplant Hepatology 11/07/17 Jack Ordoñ[place] [address] [place] [phone] Consulting Physician Transplant Hepatology 01/05/18 documented as of this encounter
--- OUTSIDE RECORDS SUMMARY | 2024-07-12 12:50 | XMS_ITS | Encounter Summary ---
Author Organization Health Address [facility] [place] [address] Care Team Providers Care Mechanical Design Technician Name Role Phone Edgar Fournier MD Primary Care Provider [phone] Maile Valles RN Unavailable Unavail able Jack Ordoñez MD Unavailable [phone] Source Comments This information has been [...] release of HIV test results or diagnoses. [id number] Encounter Details Date Type Department Care Team (Late st Contact Info) Description 08/15/2018 Chart Note [facility] Liver Transplant at Outpatient [address] [phone] Melvin Petty MA Social History Tobacco Use [...] EST Hospital Encounter [facility] Interventional Radiology [address] [place] [phone] Herve Carrillo MD [address] [place] [facility] [address] [place] [address] documented as of this encounter Procedures Procedure Name Priority Date/Time Associated Diagnosis Comments HEPATIC FUNCTION PANEL Routine 08/13/2018 7:06 AM EST CBC AND DIFFERENTIAL Routine 08/13/2018 7:06 AM EST MAGNESIUM Routine 08/13/2018 7:06 AM EST RENAL FUNCTION PANEL W/O EGFR Routine 08/13/2018 7:06 AM EST documented in this encounter Results * Magnesium (08/13/2018 7:06 AM EST) Magnesium 1.7 1.6 - 2.4 mg/dL Plasma specimen (specimen) Historical Provider LAB BLOOD ORDERABLES Yoselin l Result * (ABNORMAL) Renal Function Panel w/o EGFR (08/13/2018 7:06 AM EST) BUN/Creatinine Ratio 16.3 Glucose 222 mg/dL BUN 39(A) 4 - 21 mg/dL CO2 22 13 - 22 mmol/L Creatinine 2.4(A) 0.6 - 1.3 mg/dL Potassium 4.5 3.4 - 5.3 mmol/L Sodium 140 137 - 147 mmol/L Chloride 105 99 - 108 mmol/L Albumin 3.1 Calcium 8.5(A) 8.7 - 10.7 mg/dL EGFR 31 mg/dL Blood specimen (specimen) Historical Provider LAB BLOOD ORDERABLES Yoselin l Result * (ABNORMAL) CBC and differential (08/13/2018 7:06 AM EST) Pathologist [facility] Hemoglobin 9.8(A) 13.5 - 17.5 g/dL Hematocrit 29.2(A) 41 - 53 % RDW 12.9 11.5 - 14.5 % Lymphocytes Absolute 2.13 /??L Monocytes Absolute 0.3 /??L Eosinophils Absolute 0.14 /??L Basophils Absolute 0.01 /??L Neutrophils Relative 44.7(A) 46 - 78 % Lymphocytes Relative 45.7 18 - 52 % Monocytes Relative 6.4 3 - 10 % Eosinophils Relative 3 0 - 6 % Basophils Relative 0.2 0 - 3 % Neutrophils Absolute 2.08 /??L MCH 28.2 26.0 - 34.0 pg MCHC 33.6 30 - 37 g/dL MCV 84.1 82.0 - 108.0 fL Platelets 207 K/??L RBC 3.47(A) 4.50 - 5.90 10^6/??L WBC 4.7 10^3/mL Blood specimen (specimen) Result [facility] Historical Provider LAB BLOOD ORDERABLES Yoselin l Result * (ABNORMAL) Hepatic Function Panel (08/13/2018 7:06 AM EST) [facility] Alkaline Phosphatase 171 U/L ALT 21 U/L AST 20 U/L Total Bilirubin 0.2 0.1 - 1.4 mg/dL Bilirubin, Direct 0.05 0.01 - 0.4 mg/dL Total Protein 6.2(A) 6.4 - 8.2 g/dL Plasma specimen (specimen) Result [facility] Historical Provider LAB BLOOD ORDERABLES Yoselin l Result documented in this encounter Visit Diagnoses Not on filedocumented in this encounter Additional Health Concerns Assessment Noted Time PHQ-9 Depression Total Score: 0 12/06/19 18 3:00 PM EDT documented as of this encounter Care Teams Mechanical Design Technician Relationship Specialty Start Date End Date Edgar Fournier MD [address] [place] [phone] PCP - General 08/18/17 06/23/21 Maile Valles, JANA Txp Post Coordinator Transplant Hepatology 11/07/17 Jack Ordoñez MD [address] [place] [address] Consulting Physician Transplant Hepatology 01/05/18 documented as of this encounter
--- OUTSIDE RECORDS SUMMARY | 2024-07-12 12:50 | XMS_ITS | Encounter Summary ---
Author Organization Health Address [facility]0 [place] [address] Care Team Providers Care Nicu Rn Name Role Phone Edgar Fournier MD Primary Care Provider [phone] Maile Valles RN Unavailable Unavail able Jack Ordoñez MD Unavailable [phone] Source Comments This information has been [...] release of HIV test results or diagnoses. [id number] Encounter Details Date Type Department Care Team (Late st Contact Info) Description 06/27/2018 Orders Only [facility] Liver Transplant at Outpatient [facility] [address] [phone] Latrice Brice MA S/P liver transplant ([facility]) Social History Tobacco Use Types Packs/Day Years [...] Hospital Encounter [facility] Interventional Radiology [address] [place] [phone] Herve Carrillo MD 3130 [facility] 3200 [place] [phone] documented as of this encounter Visit Diagnoses Diagnosis S/P liver transplant (CMS-HCC) documented in this encounter Additional Health Concerns Assessment Noted Time PHQ-9 Depression Total Score: 0 12/06/19 18 3:00 PM EDT documented as of this encounter Care Teams Nicu Rn Relationship Specialty Start Date End Date Edgar Fournier MD [address] [place] [address] [place] [address] PCP - General 08/18/17 06/23/21 Maile Valles, JANA Txp Post Coordinator Transplant Hepatology 11/07/17 Jack Ordoñez [place] [address] [place] [phone] Consulting Physician Transplant Hepatology 01/05/18 documented as of this encounter
--- OUTSIDE RECORDS SUMMARY | 2024-07-12 12:50 | XMS_ITS | Encounter Summary ---
Author Organization [facility] Address [address] [place] [address] Care Team Providers Care Nuclear Equipment Operator Name Role Phone Edgar Fournier MD Primary Care Provider [phone] Maile Valles RN Unavailable Unavail able Jack Ordoñez MD Unavailable [phone] Source Comments This information has been [...] release of HIV test results or diagnoses. [id number] Reason for Visit * Reason Onset Date Comments Results 11/01/2018 Encounter Details Date Type Department Care Team (Late st Contact Info) Description 11/01/2018 Telephone [facility] Liver Transplant at Outpatient [place] [address] [place] [phone] Latrice Brice MA Results Social History Tobacco Use Types Packs/Day [...] Telephone Encounter - Maile Valles RN - 11/08/2018 3:45 PM EDT Reviewed all results with patient who verbalized understanding. * Telephone Encounter - Maile Valles RN - 11/08/2018 8:[address] Ordoñez: No change Attempted to contact patient to review, however VM box not set up, unable to leave a message. * Telephone Encounter - Maile Valles RN - 11/07/2018 3:42 PM EDT Patient calling to discuss recent labs and to find out if Envarsus dose needs adjusted. Renal panel and hepatic panel from 11/01/18 reviewed. Cr 2.5 Alk phos improved slightly to 173. Will route to Txp Provider for review and recommendations. * Telephone Encounter - Maile Valles RN - 11/07/2018 3:12 PM EDT Renal panel from mid-October still absent. Txp MA calling lab to determine if drawn. Patient calling to review results, however no changes will be made until a full set of labs is obtained. HBsAb positive. HBV quant not detected. * Telephone Encounter - Maile Valles RN - 11/01/2018 9:52 AM EDT Lab results from 10/23/18 reviewed. Lab missed renal panel and HBsAb - patient to return to lab. Alk phos elevated to 214.8 FK 1.3 HBcAb positive HBsAb negative Will route to Txp Provider for review. * Telephone Encounter - Latrice Brice MA - 11/01/2018 9:46 AM EDT This MA spoke with Aiden regarding getting a renal panel and HBsAB drawn. Aiden stated he would go 11-01-18 documented in this encounter Plan of Treatment Upcoming Encounters Date Type Department Care Team (Late st Contact Info) Description 07/15/2024 9:00 AM EST Hospital Encounter [facility] Interventional Radiology [address] [place] [phone] Herve Carrillo MD 3130 [facility] 3200 [place] [phone] documented as of this encounter Visit Diagnoses Not on filedocumented in this encounter Additional Health Concerns Assessment Noted Time PHQ-9 Depression Total Score: 0 12/06/19 18 3:00 PM EDT documented as of this encounter Care Teams Nuclear Equipment Operator Relationship Specialty Start Date End Date Edgar Fournier MD [address] [place] [address] [place] [address] PCP - General 08/18/17 06/23/21 Maile Valles, JANA Txp Post Coordinator Transplant Hepatology 11/07/17 Jack Ordoñez MD [address] [place] [phone] Consulting Physician Transplant Hepatology 01/05/18 documented as of this encounter
--- OUTSIDE RECORDS SUMMARY | 2024-07-12 12:50 | XMS_ITS | Encounter Summary ---
Author Organization Health Address [address] [place] [address] Care Team Providers Care Football Pad Repairer Name Role Phone Edgar Fournier MD Primary Care Provider [phone] Maile Valles RN Unavailable Unavail able Jack Ordoñez MD Unavailable [phone] Source Comments This information has been [...] release of HIV test results or diagnoses. [id number] Encounter Details Date Type Department Care Team (Late st Contact Info) Description 09/28/2018 Refill [facility] Gastroenterology at [facility] [address] [place] [address] 6[address] [place] [phone] Skylar Virgen, RN Social History Tobacco Use [...] [facility] [address] [place] [phone] Herve Carrillo MD 3130 [facility] [address] [place] [address] documented as of this encounter Visit Diagnoses Not on filedocumented in this encounter Additional Health Concerns Assessment Noted Time PHQ-9 Depression Total Score: 0 12/06/19 18 3:00 PM EDT documented as of this encounter Care Teams Football Pad Repairer Relationship Specialty Start Date End Date Edgar Fournier MD [address] [place] [address] [place] [address] PCP - General 08/18/17 06/23/21 Maile Valles, JANA Txp Post Coordinator Transplant Hepatology 11/07/17 Jack Ordoñez MD [address] [place] [phone] Consulting Physician Transplant Hepatology 01/05/18 documented as of this encounter
--- OUTSIDE RECORDS SUMMARY | 2024-07-12 12:50 | XMS_ITS | Encounter Summary ---
Author Organization Health Address [facility]0 [place] [address] Care Team Providers Care Satellite Technician Name Role Phone Edgar Fournier MD Primary Care Provider [phone] Maile Valles RN Unavailable Unavail able Jack Ordoñez MD Unavailable [phone] Source Comments This information has been [...] release of HIV test results or diagnoses. [id number] Encounter Details Date Type Department Care Team (Late st Contact Info) Description 08/16/2018 Telephone [facility] Liver Transplant at Outpatient [address] [phone] [place] Park MA Social History [...] Telephone Encounter - [place] Park MA - 08/16/2018 3:42 PM EST Aiden called and asked to move his appointment to another day. He said his mother in law was killedin a car wreck and the was on Sunday 08/20. Pt sated he will have his labs done before his next appointment at his normal lab. Routed note to coordinator. documented in this encounter Plan of Treatment Upcoming Encounters Date Type Department Care Team (Late st Contact Info) Description 07/15/2024 9:00 AM EST Hospital Encounter [facility] Interventional Radiology [address] [place] [phone] Herve Carrillo MD 3130 [facility] 3200 [place] [phone] documented as of this encounter Visit Diagnoses Not on filedocumented in this encounter Additional Health Concerns Assessment Noted Time PHQ-9 Depression Total Score: 0 12/06/19 18 3:00 PM EDT documented as of this encounter Care Teams Satellite Technician Relationship Specialty Start Date End Date Edgar Fournier MD [address] [place] [address] [place] [address] PCP - General 08/18/17 06/23/21 Maile Valles, RN Txp Post Coordinator Transplant Hepatology 11/07/17 Jack Ordoñez MD [address] [place] [phone] Consulting Physician Transplant Hepatology 01/05/18 documented as of this encounter
--- OUTSIDE RECORDS SUMMARY | 2024-07-12 12:50 | XMS_ITS | Encounter Summary ---
Author Organization Health Address [facility] [place] [address] Care Team Providers Care Equipment Maintenance Tech Name Role Phone Edgar Fournier MD Primary Care Provider [phone] Maile Valles RN Unavailable Unavail able Jack Ordoñez MD Unavailable [phone] Source Comments This information has been [...] release of HIV test results or diagnoses. [id number] Encounter Details Date Type Department Care Team (Late st Contact Info) Description 07/09/2018 Chart Note [facility] Liver Transplant at Outpatient [address] [phone] Latrice Brice MA Social History Tobacco Use [...] [facility] Interventional Radiology [address] [place] [phone] Herve Carrillo MD [address] [place] [address] [place] [address] documented as of this encounter Procedures Procedure Name Priority Date/Time Associated Diagnosis Comments HEPATIC FUNCTION PANEL Routine 07/02/2018 7:44 AM EST TACROLIMUS LEVEL Routine 07/02/2018 7:44 AM EST CYCLOSPORINE LEVEL Routine 07/02/2018 7: 44 AM EST CBC AND DIFFERENTIAL Routine 07/02/2018 7:44 AM EST MAGNESIUM Routine 07/02/2018 7:44 AM EST RENAL FUNCTION PANEL W/O EGFR Routine 07/02/2018 7:44 AM EST documented in this encounter Results * Magnesium (07/02/2018 7:44 AM EST) Magnesium 1.9 1.6 - 2.4 mg/dL EXTERNAL Plasma specimen (specimen) us Historical Provider LAB BLOOD ORDERABLES Yoselin l Result EXTERNAL * (ABNORMAL) Renal Function Panel w/o EGFR (07/02/2018 7:44 AM EST) BUN/Creatinine Ratio 16.5 EXTERNAL Glucose 141 mg/dL EXTERNAL BUN 33(A) 4 - 21 mg/dL EXTERNAL CO2 26(A) 13 - 22 mmol/L EXTERNAL Creatinine 2(A) 0.6 - 1.3 mg/dL EXTERNAL Potassium 4.6 3.4 - 5.3 mmol/L EXTERNAL Sodium 138 137 - 147 mmol/L EXTERNAL Chloride 104 99 - 108 mmol/L EXTERNAL Albumin 3.2 EXTERNAL Calcium 8.4(A) 8.7 - 10.7 mg/dL EXTERNAL EGFR 39 mg/dL EXTERNAL Blood specimen (specimen) Result [facility] Provider MD LAB BLOOD ORDERABLES Yoselin l Result Performing Organization Address City/[facility] de Phone Number EXTERNAL * (ABNORMAL) Tacrolimus level (07/02/2018 7:44 AM EST) Tacrolimus by Immunoassay -- EXTERNAL Tacrolimus Lvl 1.9(A) 6 - 15 ng/mL EXTERNAL Whole blood specimen (specimen) Result [facility] Provider MD LAB BLOOD ORDERABLES Yoselin l Result Performing Organization Address [facility] de Phone Number EXTERNAL * Cyclosporine level (07/02/2018 7:44 AM EST) Cyclosporine, Blood none detected EXTERNAL Whole blood specimen (specimen) Result [facility] Provider MD LAB BLOOD ORDERABLES Yoselin l Result Performing Organization Address [facility] de Phone Number EXTERNAL * (ABNORMAL) CBC and differential (07/02/2018 7:44 AM EST) Hemoglobin 9.9(A) 13.5 - 17.5 g/dL EXTERNAL Hematocrit 29.4(A) 41 - 53 % EXTERNAL RDW 12.8 11.5 - 14.5 % EXTERNAL Lymphocytes Absolute 1.48 /??L EXTERNAL Monocytes Absolute 0.35 /??L EXTERNAL Eosinophils Absolute 0.14 /??L EXTERNAL Basophils Absolute 0.01 /??L EXTERNAL Neutrophils Relative 47.9 46 - 78 % EXTERNAL Lymphocytes Relative 38.9 18 - 52 % EXTERNAL Monocytes Relative 9.2 3 - 10 % EXTERNAL Eosinophils Relative 3.7 0 - 6 % EXTERNAL Basophils Relative 0.3 0 - 3 % EXTERNAL Neutrophils Absolute 1.82 /??L EXTERNAL MCH 29.6 26.0 - 34.0 pg EXTERNAL MCHC 33.7 30 - 37 g/dL EXTERNAL MCV 87.8 82.0 - 108.0 fL EXTERNAL Platelets 212 K/??L EXTERNAL RBC 3.35(A) 4.50 - 5.90 10^6/??L EXTERNAL WBC 3.8 10^3/mL EXTERNAL Blood specimen (specimen) Historical Provider LAB BLOOD ORDERABLES Yoselin l Result EXTERNAL * (ABNORMAL) Hepatic Function Panel (07/02/2018 7:44 AM EST) Alkaline Phosphatase 157 U/L EXTERNAL ALT 23 U/L EXTERNAL AST 19 U/L EXTERNAL Total Bilirubin 0.2 0.1 - 1.4 mg/dL EXTERNAL Bilirubin, Direct 0.1 0.01 - 0.4 mg/dL EXTERNAL Total Protein 6.1(A) 6.4 - 8.2 g/dL EXTERNAL Plasma specimen (specimen) Historical Provider LAB BLOOD ORDERABLES Yoselin l Result EXTERNAL documented in this encounter Visit Diagnoses Not on filedocumented in this encounter Additional Health Concerns Assessment Noted Time PHQ-9 Depression Total Score: 0 12/06/19 18 3:00 PM EDT documented as of this encounter Care Teams Equipment Maintenance Tech Relationship Specialty Start Date End Date Edgar Fournier MD [address] [place] [address] [place] [address] PCP - General 08/18/17 06/23/21 Maile Valles, JANA Txp Post Coordinator Transplant Hepatology 11/07/17 Jack Ordoñez MD [facility] [place] [address] Consulting Physician Transplant Hepatology 01/05/18 documented as of this encounter
--- OUTSIDE RECORDS SUMMARY | 2024-07-12 12:50 | XMS_ITS | Encounter Summary ---
Author Organization [facility] Address [facility] [place] [address] Care Team Providers Care Director Of Institutional Sales Name Role Phone Edgar Fournier MD Primary Care Provider [phone] Maile Valles RN Unavailable Unavail able Jack Ordoñez MD Unavailable [phone] Source Comments This information has been [...] release of HIV test results or diagnoses. [id number] Reason for Visit * Reason Onset Date Comments Medication Refill 11/26/2018 Encounter Details Date Type Department Care Team (Late st Contact Info) Description 11/26/2018 Refill [facility] Liver Transplant at Outpatient [address] [phone] Latrice Brice MA S/P liver transplant ([facility]); Immunosuppression ([facility]) Social History Tobacco Use Types Packs/Day [...] EST Hospital Encounter [facility] Interventional Radiology [address] [place] [phone] Herve Carrillo MD 3130 [facility] 3200 [place] [phone] documented as of this encounter Visit Diagnoses Diagnosis S/P liver transplant (CMS-HCC) Immunosuppression (CMS-HCC) documented in this encounter Additional Health Concerns Assessment Noted Time PHQ-9 Depression Total Score: 0 12/06/19 18 3:00 PM EDT documented as of this encounter Care Teams Director Of Institutional Sales Relationship Specialty Start Date End Date Edgar Fournier MD [address] [place] [address] [place] [phone] PCP - General 08/18/17 06/23/21 Maile Valles, JANA Txp Post Coordinator Transplant Hepatology 11/07/17 Jack Ordoñez [place] [address] [place] [phone] Consulting Physician Transplant Hepatology 01/05/18 documented as of this encounter
--- OUTSIDE RECORDS SUMMARY | 2024-07-12 12:51 | XMS_ITS | Encounter Summary ---
Author Organization [facility] Address [facility] [place] [address] Care Team Providers Care Medical/Surgery Registered Nurse Name Role Phone Edgar Fournier MD Primary Care Provider [phone] Maile Valles RN Unavailable Unavail able Jack Ordoñez MD Unavailable [phone] Source Comments This information has been [...] release of HIV test results or diagnoses. [id number] Reason for Visit * Auth/Cert Specialty Diagnoses / Procedures Referred By Contac t Referred To Contact Cardiology [facility] Nuclear Cardiology [address] [place] [phone] Phone: tel: Referral ID Status Reason Start Date Expiration Date Visits Re quested Visits Authorized [id number] 1 1 Encounter Details Date Type Department Care Team (Latest Contact Info) Description 05/07/2018 12:31 PM EDT - 05/07/2018 11:59 PM EDT Hospital Encounter [facility] Nuclear Cardiology [address] [place] [phone] System, Provider Not In Discharge Disposition: Home [...] daily with breakfast. 30 tablet 5 8 NIFEdipine (PROCARDIA-XL) 90 MG (OSM) 24 hr tablet Take 1 tablet (90 mg total) by mouth if needed. 8 amLODIPine (NORVASC) 10 MG tablet Take 10 mg by mouth daily. 09/13/19 19 blood sugar diagnostic Strp Use to test blood sugar up to 4 times a day. Diagnosis for use: E 9.65. For use with One Touch Verio meters. 150 strip 5 8 03/18/20 22 blood-glucose meter (ONETOUCH VERIO SYSTEM) [facility] Use as instructed. 1 each 8 03/18/20 [...] mouth every Monday, , and Monday. 03/18/20 gabapentin (NEURONTIN) 600 MG tablet Take 800 mg by mouth 3 times a day. Taking 800mg in the AM, 1200mg at 6pm, and then 800mg at 9pm 01/18/20 insulin glulisine U-100 (APIDRA U-100 INSULIN) 100 unit/mL injection Inject 2-4 Units subcutaneously 3 times a day with meals. 01/18/20 19 insulin NPH isoph U-100 human (HUMULIN N NPH INSULIN KWIKPEN) 100 unit/mL (3 mL) InPnIndications:S/P liver transplant ([facility]),Hyperglyc emia Inject subcutaneously 50 units in the AM and 17 units in the PM. 15 mL 8 01/18/20 19 lancets (ONETOUCH DELICA LANCETS) 33 gauge Misc Use 1 strip as directed 4 times daily before meals and at bedtime. 150 each 8 03/18/20 22 mycophenolate (CELLCEPT) 250 mg capsuleIndications: S/P liver transplant ([facility]),Immunosup pression ([facility]) Take 3 capsules (750 mg total) by mouth 2 times a day. 180 capsule 8 11/27/19 19 ondansetron (ZOFRAN-ODT) 4 MG disintegrating tablet [...] 11/11/19 20 tacrolimus (ENVARSUS XR) 1 mg [id number]:S/P liver transplant ([facility]),Immunosup pression ([facility]) Take 2 mg by mouth daily. 60 tablet 8 10/17/19 19 documented as of this encounter Plan of Treatment Upcoming Encounters Date Type Department Care Team (Late st Contact Info) Description 07/15/2024 9:00 AM EST Hospital Encounter [facility] Interventional Radiology [address] [place] [phone] Herve Carrillo MD [address] [facility] [place] [phone] documented as of this encounter Procedures Procedure Name Priority Date/Time Associated Diagnosis Comments GXT EXERCISE FOR NUCLEAR IMAGE Routine 05/07/2018 3:46 PM EDT Chest pain, unspecified type SOB (shortness of breath) NM MYOCARDIAL PERF MULTI SPECT Routine 05/07/2018 3:46 PM EDT Chest pain, unspecified type SOB (shortness of breath) documented in this encounter Results * NM Myocardial perf stress and rest SPECT (05/07/2018 3:46 PM EDT) Anatomical Region Laterality Modality Chest Nuclear Medicine 05/07/2018 12:3 1 PM EDT Narrative 05/07/2018 4:57 PM EDT FINAL INTERPRETATION Abnormal study with apical to [...] decreased perfusion in the basal inferior, mid inferior, and apical inferior wall at stress with partial improvement at rest, consistent with mixed ischemia and scar. There is no evidence of visual [...] of chest pain, shortness of breath, and coronary artery disease. The patient was not experiencing chest [...] transcribed by Rahul Bales for Dr Rosendo Cuellar Interpretation date: 05/07/2018 Transcribed date: 05/07/2018 Report Verified by: ROSENDO CUELLAR M.D. at 05/07/2018 4:57 PM EDT Procedure Note Rosendo Cuellar MD - 05/07/2018 FINAL INTERPRETATION Abnormal study with apical to basal inferior wall mixed ischemia and scar.The left ventricle is moderately dilated. Overall study quality is good.There is a study artifact related to diaphragmatic attenuation Scansignificance indicates moderate cardiac risk. Test sensitivity is reducedwith testing on anti-anginal drugs. Summary report to [place] in Dr. Fournier's office. Final report faxed to 's office. PERFUSION FINDINGS There is a medium sized area of moderately decreased perfusion in thebasal inferior, mid inferior, and apical inferior wall at stress withpartial improvement at rest, consistent with mixed ischemia and scar.There is no evidence of visual transient dilation with a normalstress/rest left ventricular volume ratio of 1.06. The sum stress score is4 (normal: less than 4, mildly abnormal: 4-8, severely abnormal: greaterthan 8). The right ventricle is dilated. FUNCTION FINDINGS The calculated left ventricular ejection fraction at rest is mildlyreduced at 46% with an end diastolic volume of 167 mL and end systolicvolume of 91 mL. The post-stress ejection fraction is normal at 51% with an end diastolicvolume of 190 mL and end systolic volume of 94 mL. Left ventricularregional wall motion is normal. PHARMACOLOGIC STRESS TECHNIQUE Indication: The patient is referred for evaluation of chest pain,shortness of breath, and coronary artery disease. The patient was not experiencing chest pain on 05/07/2018 at the time ofthe study. The pharmacologic technique was utilized due to difficultywalking. Following the intravenous injection of 14.78 millicuries ofTc-99m tetrofosmin with the patient at rest (heart rate 75, blood /95) cardiac SPECT imaging was performed one hour following injectiongiven at 1350. Subsequently the patient received 0.4 milligrams of regadenosonintravenously followed by an intravenous injection of 30.9 millicuries ofTc-99m tetrofosmin (stress heart rate 109, blood pressure 149/91). CardiacSPECT imaging was performed 45 minutes following injection given at 1515.The patient experienced atypical angina 5/10, shortness of breath,fatigue, and headache. Symptoms relieved with oral caffeine. ECG DATA: Rest ECG: Sinus rhythm/Normal conduction/No arrhythmias/Nonspecific ST-Tabnormality Stress ECG: Sinus tachycardia/No arrhythmias/Nonspecific ST changes, less than 0.5 mmST segment depression ECG findings (only): Nondiagnostic ECG due to inadequate heart rate. Please refer to the FINAL SCAN INTERPRETATION at the top of this report. The note was transcribed by Rahul Bales for Dr Rosendo Cuellar Interpretation date: 05/07/2018 Transcribed date: 05/07/2018 Report Verified by: ROSENDO CUELLAR M.D. at 05/07/2018 4:57 PM EDT us Provider Not In System IMG NM ORDERABLES Final R esult * GXT-For Nuclear Image (05/07/2018 3:46 PM EDT) 05/07/2018 2:25 PM EDT Narrative SUGARNET - 05/08/2018 7:20 AM EDT Acquisition device: ??CASE ?? Protocol Name: ??LEXISCAN ? Exercise Time: ??00:08:21 ?? : ??CHEST PAIN ?? RESTING ECG : ? Resting Blood Pressure: ??171&95& ??mmHg DURING EXERCISE : ? Maximum Blood Pressure: ??175&65 ??mmHg Maximum Heart Rate: ??109 ??BPM : ??Yes ?? Target HR Reached: ??No ?? POST EXERCISE : ? : ??No ?? Interpretation: ??Ecg interpretation included with stress nuclear perfusion scan. ECG strips stored in MUSE. ^ Confirmed by MARK ??ROSENDO PEREZ (), digital editor Denae Gauthier ([id number]) on 05/08/2018 7:20:53 AM Procedure Note Rosendo Cuellar MD - 05/08/2018 Acquisition device: CASE Protocol Name: AMADA Exercise Time: 00:08:21 : CHEST PAIN RESTING ECG : Resting Blood Pressure: 171&95& mmHg DURING EXERCISE : Maximum Blood Pressure: 175&65 mmHg Maximum Heart Rate: 109 BPM : Yes Target HR Reached: No POST EXERCISE : : No Interpretation: Ecg interpretation included with stress nuclear perfusionscan. ECG strips stored in MUSE. ^ Confirmed by ROSENDO CUELLAR MD (),digital editor Denae Gauthier ([id number]) on 05/08/2018 7:20:53 AM us Provider Not In System CV CARDIAC SERVICES ORDER ASHISH Final Result SARAH documented in this encounter Visit Diagnoses Not on filedocumented in this encounter Additional Health Concerns Assessment Noted Time PHQ-9 Depression Total Score: 0 12/06/19 18 3:00 PM EDT documented as of this encounter Care Teams Medical/Surgery Registered Nurse Relationship Specialty Start Date End Date Edgar Fournier MD [address] [place] [address] PCP - General 08/18/17 06/23/21 Maile Valles, JANA Txp Post Coordinator Transplant Hepatology 11/07/17 Jack Ordoñez MD [facility] [place] [phone] Consulting Physician Transplant Hepatology 01/05/18 documented as of this encounter
--- OUTSIDE RECORDS SUMMARY | 2024-07-12 12:51 | XMS_ITS | Encounter Summary ---
Author Organization [facility] Address [facility] [place] [address] Care Team Providers Care Clinical Audiologist Name Role Phone Edgar Fournier MD Primary Care Provider [phone] Maile Valles RN Unavailable Unavail able Jack Ordoñez MD Unavailable [phone] Source Comments This information has been [...] release of HIV test results or diagnoses. [id number] Reason for Visit * Auth/Cert Specialty Diagnoses / Procedures Referred By Contac t Referred To Contact Cardiology [facility] Nuclear Cardiology [address] [place] [phone] Phone: tel: Referral ID Status Reason Start Date Expiration Date Visits Re quested Visits Authorized [id number] 1 1 Encounter Details Date Type Department Care Team (Latest Contact Info) Description 05/07/2018 12:31 PM EDT - 05/07/2018 11:59 PM EDT Hospital Encounter [facility] Nuclear Cardiology [address] [place] [phone] System, Provider Not In Discharge Disposition: Home [...] 03/18/20 22 blood-glucose meter (ONETOUCH VERIO SYSTEM) [facility] Use as instructed. 1 each 8 03/18/20 [...] transplant ([facility]),Hyperglyc emia Inject subcutaneously 50 units in the AM and 17 units in the PM. 15 mL 8 01/18/20 19 lancets (ONETOUCH DELICA LANCETS) 33 gauge Misc Use 1 strip as directed 4 times daily before meals and at bedtime. 150 each 8 03/18/20 22 mycophenolate (CELLCEPT) 250 mg capsuleIndications: S/P liver transplant ([facility]),Immunosup pression ([facility]) Take 3 capsules (750 mg total) by [...] 11/11/19 20 tacrolimus (ENVARSUS XR) 1 mg [id number]:S/P liver transplant ([facility]),Immunosup pression ([facility]) Take 2 mg by mouth daily. 60 tablet 8 10/17/19 19 documented as of this encounter Plan of Treatment Upcoming Encounters Date Type Department Care Team (Late st Contact Info) Description 07/15/2024 9:00 AM EST Hospital Encounter [facility] Interventional Radiology [address] [place] [phone] Herve Carrillo MD [address] [facility] [address] [place] [phone] documented as of this encounter Procedures Procedure Name Priority Date/Time Associated Diagnosis Comments GXT EXERCISE FOR NUCLEAR IMAGE Routine 05/07/2018 3:46 PM EDT Chest pain, unspecified type SOB (shortness of breath) NM MYOCARDIAL PERF MULTI SPECT Routine 05/07/2018 3:46 PM EDT Chest pain, unspecified type SOB (shortness of breath) documented in this encounter Visit Diagnoses Not on filedocumented in this encounter Administered Medications Inactive Administered Medications - up to 3 most recent administrations Medication Order MAR Action Action Date Dose Rate Site Tc-99m technetium tetrofosmin (MYOVIEW) 30.9 millicurie 30.9 millicurie, Intravenous, IMG once as needed, contrast, Starting on 05/07/18 at 1615, For 1 dose Given 05/07/2018 3:45 PM EDT 30.9 millicuries documented in this encounter Additional Health Concerns Assessment Noted Time PHQ-9 Depression Total Score: 0 12/06/19 18 3:00 PM EDT documented as of this encounter Care Teams Clinical Audiologist Relationship Specialty Start Date End Date Edgar Fournier MD [address] [place] [address] [place] [address] PCP - General 08/18/17 06/23/21 Maile Valles, JANA Txp Post Coordinator Transplant Hepatology 11/07/17 Jack Ordoñez MD [address] [place] [phone] Consulting Physician Transplant Hepatology 01/05/18 documented as of this encounter
--- OUTSIDE RECORDS SUMMARY | 2024-07-12 12:51 | XMS_ITS | Encounter Summary ---
Author Organization Health Address [facility] [place] [address] Care Team Providers Care Improvement Spec Name Role Phone Edgar Fournier MD Primary Care Provider [phone] Maile Valles RN Unavailable Unavail able Jack Ordoñez MD Unavailable [phone] Source Comments This information has been [...] release of HIV test results or diagnoses. [id number] Encounter Details Date Type Department Care Team (Late st Contact Info) Description 05/03/2018 Telephone [facility] Liver Transplant at Outpatient [address] [phone] Latrice Brice MA Social History [...] Telephone Encounter - Latrice Brice MA - 05/03/2018 2:59 PM EDT Regarding CMV quant lab order that needs to be drawn with next set of standing labs. Transplant would like Aiden to have labs drawn locally on 05-04-18 or the morning of his follow up appointment. This MA not able to leave message due to no voice mail set up. documented in this encounter Plan of Treatment Upcoming Encounters Date Type Department Care Team (Late st Contact Info) Description 07/15/2024 9:00 AM EST Hospital Encounter [facility] Interventional Radiology [address] [place] [phone] Herve Carrillo MD [address] [facility] [address] [facility] [place] [phone] documented as of this encounter Visit Diagnoses Not on filedocumented in this encounter Additional Health Concerns Assessment Noted Time PHQ-9 Depression Total Score: 0 12/06/19 18 3:00 PM EDT documented as of this encounter Care Teams Improvement Spec Relationship Specialty Start Date End Date Edgar Fournier MD [address] [place] [address] [place] [address] PCP - General 08/18/17 06/23/21 Maile Valles, RN Txp Post Coordinator Transplant Hepatology 11/07/17 Jack Ordoñez MD [address] [place] [phone] Consulting Physician Transplant Hepatology 01/05/18 documented as of this encounter
--- OUTSIDE RECORDS SUMMARY | 2024-07-12 12:51 | XMS_ITS | Encounter Summary ---
Author Organization Health Address [facility] [place] [address] Care Team Providers Care Day Care Home Mother Name Role Phone Edgar Fournier MD Primary Care Provider [phone] Maile Valles RN Unavailable Unavail able Jack Ordoñez MD Unavailable [phone] Source Comments This information has been [...] release of HIV test results or diagnoses. [id number] Encounter Details Date Type Department Care Team (Late st Contact Info) Description 06/04/2018 Telephone [facility] Cardiology at [place] [facility] [address] [facility] [address] [place] [address] Connie Carroll RN Social History Tobacco Use Types Packs/Day [...] encounter Miscellaneous Notes * Telephone Encounter - Connie Carroll RN - 06/04/2018 12:[address] gonzalez, [facility]C scheduled for Jun 05 arrival 11 am/case at 1 pm. Reviewed all pre procedure instructions with pt; verb understanding. documented in this encounter Plan of Treatment Upcoming Encounters Date Type Department Care Team (Late st Contact Info) Description 07/15/2024 9:00 AM EST Hospital Encounter [facility] Interventional Radiology [address] [place] [phone] Herve Carrillo MD [address] [facility] 3[address] [place] [phone] documented as of this encounter Visit Diagnoses Not on filedocumented in this encounter Additional Health Concerns Assessment Noted Time PHQ-9 Depression Total Score: 0 12/06/19 18 3:00 PM EDT documented as of this encounter Care Teams Day Care Home Mother Relationship Specialty Start Date End Date Edgar Fournier MD [address] [place] [address] [place] [address] PCP - General 08/18/17 06/23/21 Maile Valles, JANA Txp Post Coordinator Transplant Hepatology 11/07/17 Jack Ordoñez MD [address] [place] [phone] Consulting Physician Transplant Hepatology 01/05/18 documented as of this encounter
--- OUTSIDE RECORDS SUMMARY | 2024-07-12 12:51 | XMS_ITS | Encounter Summary ---
Author Organization [facility] Address [facility] [place] [address] Care Team Providers Care Pizza Delivery Name Role Phone Edgar Fournier MD Primary Care Provider [phone] Maile Valles RN Unavailable Unavail able Jack Ordoñez MD Unavailable [phone] Source Comments This information has been [...] release of HIV test results or diagnoses. [id number] Reason for Visit * Auth/Cert Specialty Diagnoses / Procedures Referred By Contac t Referred To Contact Cardiology [facility] Nuclear Cardiology [address] [place] [address] Phone: tel: Referral ID Status Reason Start Date Expiration Date Visits Re quested Visits Authorized [id number] 1 1 Encounter Details Date Type Department Care Team (Latest Contact Info) Description 05/07/2018 12:31 PM EDT - 05/07/2018 11:59 PM EDT Hospital Encounter [facility] Cardiac Stress Lab [address] [place] [phone] System, Provider Not In Discharge Disposition: Home [...] 03/18/20 22 blood-glucose meter (ONETOUCH VERIO SYSTEM) [facility] Use as instructed. 1 each 8 [...] 100 unit/mL (3 mL) InPnIndications:S/P liver transplant ([facility]),Hyperglyc emia Inject subcutaneously 50 units in the AM and 17 units in the PM. 15 mL 8 01/18/20 19 lancets (ONETOUCH DELICA LANCETS) 33 gauge Misc Use 1 strip as directed 4 times daily before meals and at bedtime. 150 each 8 03/18/20 22 mycophenolate (CELLCEPT) 250 mg capsuleIndications: S/P liver transplant ([facility]),Immunosup pression ([facility]) Take 3 capsules (750 mg [...] 11/11/19 20 tacrolimus (ENVARSUS XR) 1 mg [id number]:S/P liver transplant ([facility]),Immunosup pression ([facility]) Take 2 mg by mouth daily. 60 tablet 8 10/17/19 19 documented as of this encounter Procedure Notes * Justin De Oliveira - 05/07/2018 1:19 PM EDT Stress test ordered :Pharmacological Lexiscan Ordering physician : Antonio Chacon MD Attending/Fellow : Rosendo Cuellar MD Conducted by : JEANNIE Fung Consent obtained : Yes Last meal : 24 Hours Caffeine last ingested : 24 Hours Patient on B-Jazmyn/Calcium channel jazmyn/Nitro : Yes Last B-jazmyn/CCB/Nitro dose: 24 Hours Patient information : 43 y.o. male Please note that all the stress test vitals are documented in [facility]. There is no height or weight on file to calculate BMI. The Patient is 5'7 and his weight is 260 lbs Activity : 3 - Walking on a flat surface for one or two blocks. Indications : assessment of acute chest pain Risk factors:diabetes mellitus and hypertension Previous PR: No Previous stents or CABG : No History of CHF : No Asthma/COPD : No TIA/CVA : No PVD/Claudication : No Sleep apnea: No Allergies Allergen Reactions ??? Codeine Other (See Comments) Becomes hyper Current Outpatient Prescriptions on File Prior to [...] meters. 150 strip 5 ??? blood-glucose meter ([employer] VERIO SYSTEM) [facility] Use as instructed. 1 each 0 ??? carvedilol (COREG) 25 MG tablet Take 2 tablets (50 mg total) by mouth 2 times a day with meals.120 tablet 5 ??? doxazosin (CARDURA) 2 MG tablet Take [...] PM. ) 15 mL 5 ??? lancets (Sentient LANCETS) 33 gauge Misc Use 1 strip as directed 4 times daily before meals and at bedtime. 150 each 5 ??? mycophenolate (CELLCEPT) 250 mg capsule Take 3 capsules (750 mg total) by mouth 2 times a day. 180 capsule 5 ??? pen needle, diabetic 32 gauge x 5/32 Ndle Use as directed to inject insulin 4 times daily. 150each 5 ??? pen needle, diabetic 32 gauge x 5/32 Ndle For use with insulin pen. Use as instructed. 150 each 5 ??? tacrolimus (ENVARSUS XR) 1 mg Tb24 Take 2 mg by mouth daily. 60 tablet 5 ??? [DISCONTINUED] cycloSPORINE modified (NEORAL/GENGRAF) 25 MG capsule Take 4 capsules (100 mg total) by mouth 2 times a day. Indications: Prevention of Liver Transplant Rejection 480 capsule 5 ??? [DISCONTINUED] insulin lispro (HUMALOG KWIKPEN INSULIN) 100 unit/mL InPn Administer insulin with meals per sliding scale: glucose 150-199=2 u, 200-249=4 u, 250-299=7 u, 300-349=10 u, >349= 12 units 15 mL 5 ??? [DISCONTINUED] NIFEdipine (ADALAT CC) 90 MG 24 hr tablet Take 90 mg by mouth daily. ??? [DISCONTINUED] valGANciclovir (VALCYTE) 450 mg tablet Take 2 tablets (900 mg total) by mouth daily. 60 tablet 3 No current facility-administered medications on file prior to encounter. Clinical History : Mr. Stauffer is having this test done because he was having pain in the middle of his chest. He said that he thought that it was his hernia. He said that the pain left on its own. Hestates that he gets light headed and dizzy, headache, nauseous, and feeling fatigue. He said that they don't know if it because of his medicine or if it's a blockage. He had a liver transplant and shunt tips. Follow up Appointment : Doctor office will call with result to [phone] Pre-Exercise Murmurs : No Pulmonary Examination : Clear Post Exercise Murmurs : No Pulmonary Examination : Post stress Comments : Clear documented in this encounter Plan of Treatment Upcoming Encounters Date Type Department Care Team (Late st Contact Info) Description 07/15/2024 9:00 AM EST Hospital Encounter [facility] Interventional Radiology [address] [place] [phone] Herve Carrillo MD [address] Surgery [place] [phone] documented as of this encounter Procedures Procedure [...] patient at rest (heart rate 75, blood [id number]) cardiac SPECT imaging was performed one hour [...] PM EDT) 05/07/2018 2:25 PM EDT Narrative RADNET - 05/08/2018 7:20 AM EDT Acquisition device: [...] MUSE. ^ Confirmed by MARK ??ROSENDO PEREZ ([id number]), department editor Denae Gauthier ([id number]) on 05/08/2018 7:20:53 AM Procedure Note Rosendo [...] MUSE. ^ Confirmed by ROSENDO CUELLAR MD (19),department editor Denae Gauthier ([id number]) on 05/08/2018 7:20:53 AM us Provider Not In System CV CARDIAC SERVICES ORDER ASHISH Final Result RADNET documented in this encounter Visit Diagnoses Not on filedocumented in this encounter Additional Health Concerns Assessment Noted Time PHQ-9 Depression Total Score: 0 12/06/19 18 3:00 PM EDT documented as of this encounter Care Teams Pizza Delivery Relationship Specialty Start Date End Date Edgar Fournier MD [address] [place] [phone] PCP - General 08/18/17 06/23/21 Maile Valles, RN Txp Post Coordinator Transplant Hepatology 11/07/17 Jack Ordoñez MD [facility] [place] [phone] Consulting Physician Transplant Hepatology 01/05/18 documented as of this encounter
--- OUTSIDE RECORDS SUMMARY | 2024-07-12 12:51 | XMS_ITS | Encounter Summary ---
Author Organization Health Address [facility] [place] [address] Care Team Providers Care Orchid Grower Name Role Phone Edgar Fournier MD Primary Care Provider [phone] Maile Valles RN Unavailable Unavail able Jack Ordoñez MD Unavailable [phone] Source Comments This information has been [...] release of HIV test results or diagnoses. [id number] Encounter Details Date Type Department Care Team (Late st Contact Info) Description 05/28/[address] [facility] [phone] Latrice Brice MA Social History Tobacco Use [...] [facility] Interventional Radiology [address] [place] [phone] Herve Carrillo MD [address] [facility] [address] [place] [address] documented as of this encounter Procedures Procedure Name Priority Date/Time Associated Diagnosis Comments TACROLIMUS LEVEL Routine 05/24/2018 8:46 AM EDT CYCLOSPORINE LEVEL Routine 05/24/2018 8: 46 AM EDT documented in this encounter Results * (ABNORMAL) Tacrolimus level (05/24/2018 8:46 AM EDT) Tacrolimus by Immunoassay -- Tacrolimus Lvl 2.7(A) 6 - 15 ng/mL Whole blood specimen (specimen) Historical Provider LAB BLOOD ORDERABLES Yoselin l Result * Cyclosporine level (05/24/2018 8:46 AM EDT) Cyclosporine, Blood none detected Whole blood specimen (specimen) Historical Provider LAB BLOOD ORDERABLES Yoselin l Result documented in this encounter Visit Diagnoses Not on filedocumented in this encounter Additional Health Concerns Assessment Noted Time PHQ-9 Depression Total Score: 0 12/06/19 18 3:00 PM EDT documented as of this encounter Care Teams Orchid Grower Relationship Specialty Start Date End Date Edgar Fournier MD [address] [place] [address] J[place]s [address] PCP - General 08/18/17 06/23/21 Maile Valles, JANA Txp Post Coordinator Transplant Hepatology 11/07/17 Jack Ordoñez MD [facility] [place] [address] Consulting Physician Transplant Hepatology 01/05/18 documented as of this encounter
--- OUTSIDE RECORDS SUMMARY | 2024-07-12 12:51 | XMS_ITS | Encounter Summary ---
Author Organization Health Address [facility]0 [place] [address] Care Team Providers Care Compliance Vice President Name Role Phone Edgar Fournier MD Primary Care Provider [phone] Maile Valles RN Unavailable Unavail able Jack Ordoñez MD Unavailable [phone] Source Comments This information has been [...] release of HIV test results or diagnoses. [id number] Health Encounter Details Date Type Department Care Team (Late st Contact Info) Description 06/04/2018 Orders Only [facility] [phone] Maile Valles, JANA S/P liver transplant ([facility]) (Primary Dx); Immunosuppression ([facility]) Social History Tobacco Use Types Packs/Day Years [...] Encounter [facility] Interventional Radiology [address] [place] [phone] Herve Carrillo MD [address] [facility] 3[address] [place] [phone] documented as of this encounter Visit Diagnoses Diagnosis S/P liver transplant (CMS-HCC)- Primary Immunosuppression (CMS-HCC) documented in this encounter Additional Health Concerns Assessment Noted Time PHQ-9 Depression Total Score: 0 12/06/19 18 3:00 PM EDT documented as of this encounter Care Teams Compliance Vice President Relationship Specialty Start Date End Date Edgar Fournier MD [address] [place] [address] [place] [address] PCP - General 08/18/17 06/23/21 Maile Valles, JANA Txp Post Coordinator Transplant Hepatology 11/07/17 Jack Ordoñez MD [address] [place] [phone] Consulting Physician Transplant Hepatology 01/05/18 documented as of this encounter
--- OUTSIDE RECORDS SUMMARY | 2024-07-12 12:51 | XMS_ITS | Encounter Summary ---
Author Organization Health Address [facility] [place] [address] Care Team Providers Care Technical Support Consultant Name Role Phone Edgar Fournier MD Primary Care Provider [phone] Maile Valles RN Unavailable Unavail able Jack Ordoñez MD Unavailable [phone] Source Comments This information has been [...] release of HIV test results or diagnoses. [id number] Encounter Details Date Type Department Care Team (Late st Contact Info) Description 05/25/2018 Chart Note [facility] Liver Transplant at Outpatient [address] [phone] Latrice Brice MA Social History Tobacco Use [...] [facility] Inter[facility] [address] [place] [phone] Herve Carrillo MD [address] [place] [address] documented as of this encounter Procedures Procedure Name Priority Date/Time Associated Diagnosis Comments HEPATIC FUNCTION PANEL Routine 05/24/2018 8:46 AM EDT CBC AND DIFFERENTIAL Routine 05/24/2018 8:46 AM EDT MAGNESIUM Routine 05/24/2018 8:46 AM EDT RENAL FUNCTION PANEL W/O EGFR Routine 05/24/2018 8:46 AM EDT documented in this encounter Results * Magnesium (05/24/2018 8:46 AM EDT) Magnesium 1.9 1.6 - 2.4 mg/dL EXTERNAL Plasma specimen (specimen) us Historical Provider LAB BLOOD ORDERABLES Yoselin l Result EXTERNAL * (ABNORMAL) Renal Function Panel w/o EGFR (05/24/2018 8:46 AM EDT) BUN/Creatinine Ratio 15.3 EXTERNAL Glucose 159 mg/dL EXTERNAL BUN 29(A) 4 - 21 mg/dL EXTERNAL CO2 29(A) 13 - 22 mmol/L EXTERNAL Creatinine 1.9(A) 0.6 - 1.3 mg/dL EXTERNAL Potassium 5 3.4 - 5.3 mmol/L EXTERNAL Sodium 141 137 - 147 mmol/L EXTERNAL Chloride 107 99 - 108 mmol/L EXTERNAL Albumin 3.1 EXTERNAL Phosphorus 3 2.5 - 4.9 mg/dL EXTERNAL Calcium 8.6(A) 8.7 - 10.7 mg/dL EXTERNAL EGFR 41 mg/dL EXTERNAL Blood specimen (specimen) Historical Provider LAB BLOOD ORDERABLES Yoselin l Result EXTERNAL * (ABNORMAL) CBC and differential (05/24/2018 8:46 AM EDT) Hemoglobin 9.4(A) 13.5 - 17.5 g/dL EXTERNAL Hematocrit 26.5(A) 41 - 53 % EXTERNAL RDW 12.8 11.5 - 14.5 % EXTERNAL Lymphocytes Absolute 0.97 /??L EXTERNAL Monocytes Absolute 0.27 /??L EXTERNAL Eosinophils Absolute 0.13 /??L EXTERNAL Basophils Absolute 0.01 /??L EXTERNAL Neutrophils Relative 63.1 46 - 78 % EXTERNAL Lymphocytes Relative 25.9 18 - 52 % EXTERNAL Monocytes Relative 7.2 3 - 10 % EXTERNAL Eosinophils Relative 3.5 0 - 6 % EXTERNAL Basophils Relative 0.3 0 - 3 % EXTERNAL Neutrophils Absolute 2.37 /??L EXTERNAL MCH 32 26.0 - 34.0 pg EXTERNAL MCHC 35.5 30 - 37 g/dL EXTERNAL MCV 90.1 82.0 - 108.0 fL EXTERNAL Platelets 222 K/??L EXTERNAL RBC 2.94(A) 4.50 - 5.90 10^6/??L EXTERNAL WBC 3.8 10^3/mL EXTERNAL Blood specimen (specimen) Historical Provider LAB BLOOD ORDERABLES Yoselin robles Result EXTERNAL * (ABNORMAL) Hepatic Function Panel (05/24/2018 8:46 AM EDT) Alkaline Phosphatase 164 U/L EXTERNAL ALT 25 U/L EXTERNAL AST 15 U/L EXTERNAL Total Bilirubin 0.2 0.1 - 1.4 mg/dL EXTERNAL Bilirubin, Direct 0(A) 0.01 - 0.4 mg/dL EXTERNAL Total Protein 6.2(A) 6.4 - 8.2 g/dL EXTERNAL Plasma specimen (specimen) us Historical Provider LAB BLOOD ORDERABLES Yoselin robles Result EXTERNAL documented in this encounter Visit Diagnoses Not on filedocumented in this encounter Additional Health Concerns Assessment Noted Time PHQ-9 Depression Total Score: 0 12/06/19 18 3:00 PM EDT documented as of this encounter Care Teams Technical Support Consultant Relationship Specialty Start Date End Date Edgar Fournier MD [address] [place] [address] [place] [address] PCP - General 08/18/17 06/23/21 Maile Valles, JANA Txp Post Coordinator Transplant Hepatology 11/07/17 Jack Ordoñez MD [facility]8 [place] [phone] Consulting Physician Transplant Hepatology 01/05/18 documented as of this encounter
--- OUTSIDE RECORDS SUMMARY | 2024-07-12 12:51 | XMS_ITS | Encounter Summary ---
Author Organization [facility] Address [facility] [place] [address] Care Team Providers Care Change Analyst Name Role Phone Edgar Fournier MD Primary Care Provider [phone] Maile Valles RN Unavailable Unavail able Jack Ordoñez MD Unavailable [phone] Source Comments This information has been [...] release of HIV test results or diagnoses. [id number] Reason for Referral * Physician/ANUSHA (Routine) - Closed Specialty Diagnoses / Procedures Referred By Contac t Referred To Contact [facility] Cardiology Diagnoses Abnormal stress test S/P liver transplant ([facility]) [facility] Liver Transplant at Outpatient [address] [address] Phone: tel: fax: Referral ID Status Reason Start Date Expiration Date Visits Re quested Visits Authorized [id number] Closed 05/11/2018 11/07/2018 1 1 Scheduling Instructions For appointments, please call [phone]. Encounter Details Date Type Department Care Team (Late st Contact Info) Description 05/08/2018 Telephone [facility] Liver Transplant at Outpatient [facility] [address] [place] [phone] Maile Valles RN Social History Tobacco Use Types Packs/Day [...] Telephone Encounter - Latrice Brice MA - 05/14/2018 9:57 AM EDT This MA spoke with Aiden and supplied Aiden with referral number for Cardiology [phone]. Aidenverbalized understanding * Telephone Encounter - Maile Valles RN - 05/11/2018 10:21 AM EDT [facility] [place] to contact patient and provide phone number to make appointment with cardiology ([phone]). * Telephone Encounter - Maile Valles RN - 05/08/2018 4:11 PM EDT Patient called regarding cardiac test results. Patient requesting referral to Cardiology. Will route to [facility] Provider for communication. documented in this encounter Plan of Treatment Upcoming Encounters Date Type Department Care Team (Late st Contact Info) Description 07/15/2024 9:00 AM EST Hospital Encounter [facility] Interventional Radiology [address] [place] [phone] Herve Carrillo MD 3[address] [facility] [address] [place] [address] Scheduled Referrals Name Type Priority Associated Diagnoses Orde r Schedule Cardiology Outpatient Referral Routine Abnormal stress test S/P liver transplant (CMS-HCC) Ordered: 05/11/2018 documented as of this encounter Visit Diagnoses Diagnosis Abnormal stress test- Primary Other nonspecific abnormal cardiovascular system function study S/P liver transplant (CMS-HCC) documented in this encounter Additional Health Concerns Assessment Noted Time PHQ-9 Depression Total Score: 0 12/06/19 18 3:00 PM EDT documented as of this encounter Care Teams Change Analyst Relationship Specialty Start Date End Date Edgar Fournier MD [address] [place] [address] [place] [phone] PCP - General 08/18/17 06/23/21 Maile Valles, JANA Txp Post Coordinator Transplant Hepatology 11/07/17 Jack Ordoñez MD [address] [place] [address] Consulting Physician Transplant Hepatology 01/05/18 documented as of this encounter
--- OUTSIDE RECORDS SUMMARY | 2024-07-12 12:51 | XMS_ITS | Encounter Summary ---
Author Organization Health Address [facility] [place] [address] Care Team Providers Care Laundry Technician Name Role Phone Edgar Fournier MD Primary Care Provider [phone] Maile Valles RN Unavailable Unavail able Jack Ordoñez MD Unavailable [phone] Source Comments This information has been [...] release of HIV test results or diagnoses. [id number] Encounter Details Date Type Department Care Team (Late st Contact Info) Description 05/28/2018 Telephone [facility] Liver Transplant at Outpatient [address] [address] Latrice Brice MA Social History [...] Telephone Encounter - Latrice Brice MA - 05/28/2018 11:25 AM EDT Aiden would like his coordinator to call him regarding recent lab results and if there are any changes? Aiden also mentioned tingling in his legs and a bit of blood in his urine. Will route message to advertising operations coordinator JANA Gr to call and advise documented in this encounter Plan of Treatment Upcoming Encounters Date Type Department Care Team (Late st Contact Info) Description 07/15/2024 9:00 AM EST Hospital Encounter [facility] Interventional Radiology [address] [place] [phone] Herve Carrillo MD [address] [facility] [address] Surgery [place] [phone] documented as of this encounter Visit Diagnoses Not on filedocumented in this encounter Additional Health Concerns Assessment Noted Time PHQ-9 Depression Total Score: 0 12/06/19 18 3:00 PM EDT documented as of this encounter Care Teams Laundry Technician Relationship Specialty Start Date End Date Edgar Fournier MD [address] [place] [address] [place] [address] PCP - General 08/18/17 06/23/21 Maile Valles, JANA Txp Post Coordinator Transplant Hepatology 11/07/17 Jack Ordoñez MD [address] [place] [phone] Consulting Physician Transplant Hepatology 01/05/18 documented as of this encounter
--- OUTSIDE RECORDS SUMMARY | 2024-07-12 12:51 | XMS_ITS | Encounter Summary ---
Author Organization [facility] Address [address] [place] [address] Care Team Providers Care System Support Specialist Name Role Phone Edgar Fournier MD Primary Care Provider [phone] Maile Valles RN Unavailable Unavail able Jack Ordoñez MD Unavailable [phone] Estephania Sharif PharmD Unavailable Christine vailable System, Provider Not In Primary Care Provider Un available Edgar Fournier MD Primary Care Provider [phone] Source Comments This information has been disclosed [...] release of HIV test results or diagnoses. [id number] Encounter Details Date Type Department Care Team (Late st Contact Info) Description 05/02/2018 Telephone [facility] Cardiac Stress Lab [address] [place] [address] Justin De Oliveira Social History Tobacco Use Types Packs/Day Years [...] Encounter [facility] Interventional Radiology [address] [place] [address] Herve Carrillo MD [address] [facility] [address] [place] [phone] documented as of this encounter Visit Diagnoses [...] documented as of this encounter Care Teams System Support Specialist Relationship Specialty Start Date End Date Edgar Fournier MD [address] [place] [address] PCP - General 1/5/18 11/10/21 System, Provider Not In PCP - General 06/24/21 12/21/21 Edgar Fournier MD [address] [place] [address] [place] [address] PCP - General 12/22/21 Maile Valles, RN Txp Post Coordinator Transplant Hepatology 11/07/17 Jack Ordoñez MD [address] [place] [phone] Consulting Physician Transplant Hepatology 01/05/18 Estephania Sharif, PharmD Pharmacist Pharmacist 11/11/19 documented as of this encounter
--- OUTSIDE RECORDS SUMMARY | 2024-07-12 12:51 | XMS_ITS | Encounter Summary ---
Author Organization Health Address [facility] [place] [address] Care Team Providers Care Janitor Head Name Role Phone Edgar Fournier MD Primary Care Provider [phone] Maile Valles RN Unavailable Unavail able Jack Ordoñez MD Unavailable [phone] Source Comments This information has been [...] release of HIV test results or diagnoses. [id number] Encounter Details Date Type Department Care Team (Late st Contact Info) Description 04/30/2018 Telephone [facility] Liver Transplant at Outpatient [address] [address] Maile Valles, JANA Social History [...] Telephone Encounter - Maile Valles RN - 04/30/2018 9:23 AM EDT Patient called stating he cannot come to appointment today. He woke up and his feet are hurting himtoo much. Believes d/t switch from cyclosporine to Envarsus. This coordinator explained that his symptoms are exactly why he should be seen today. Patient continued to state that he just couldn't. Patient rescheduled for 05/[address] Ordoñez. documented in this encounter Plan of Treatment Upcoming Encounters Date Type Department Care Team (Late st Contact Info) Description 07/15/2024 9:00 AM [facility] Hospital Encounter [facility] Interventional Radiology [address] [place] [phone] Herve Carrillo MD [address] [facility] [address] [place] [phone] documented as of this encounter Visit Diagnoses Not on filedocumented in this encounter Additional Health Concerns Assessment Noted Time PHQ-9 Depression Total Score: 0 12/06/19 18 3:00 PM EDT documented as of this encounter Care Teams Janitor Head Relationship Specialty Start Date End Date Edgar Fournier MD [address] [place] [address] [place] [address] PCP - General 08/18/17 06/23/21 Maile Valles, JANA Txp Post Coordinator Transplant Hepatology 11/07/17 Jack Ordoñez MD [address] [place] [phone] Consulting Physician Transplant Hepatology 01/05/18 documented as of this encounter
--- OUTSIDE RECORDS SUMMARY | 2024-07-12 12:51 | XMS_ITS | Encounter Summary ---
Author Organization [facility] Address [address] [place] [address] Care Team Providers Care Concrete Stone Fabricator Name Role Phone Edgar Fournier MD Primary Care Provider [phone] Maile Valles RN Unavailable Unavail able Jack Ordoñez MD Unavailable [phone] Source Comments This information has been [...] release of HIV test results or diagnoses. QRH5063.24 Health Reason for Visit * Auth/Cert Specialty Diagnoses / Procedures Referred By Contac t Referred To Contact Cardiology Diagnoses CHEST PAIN, ABNORMAL STRESS TEST 411.1 (ICD-9-CM) - I20.0 (ICD-10-CM) - Unstable angina pectoris (CMS Dx) 794.39 (ICD-9-CM) - R94.39 (ICD-10-CM) - Abnormal stress test V42.7 (ICD-9-CM) - Z94.4 (ICD-10-CM) - S/P liver transplant (CMS Dx) Procedures RHC/LHC 06854 (CPT??) - CO R & L HRT CATH WINJX HRT ART& L VENTR IMG [facility] Cardiac Technical Support Director [address] [place] [address] Phone: tel: Referral ID Status Reason Start Date Expiration Date Visits Re quested Visits Authorized [id number] 1 1 Encounter Details Date Type Department Care Team (Latest Contact Info) Description 06/05/2018 10:48 AM EDT - 06/05/2018 7:05 PM EDT Hospital Encounter [facility] CVR [address] [place] [phone] Fermín Schulte MD Abnormal stress test (Primary Dx); Unstable angina pectoris (CMS-HCC); S/P liver transplant (CMS-HCC); Unstable angina pectoris (CMS-HCC); Abnormal stress test; S/P liver transplant (CMS-HCC) Discharge Disposition: Home or Self Care [...] Sign Reading Time Taken Comments Blood Pressure 150/79 06/05/2018 5:45 PM EDT Pulse 74 06/05/2018 5:45 PM EDT Temperature 36.7 ??C (98 ??F) 06/05/2018 12: 13 PM EDT Respiratory Rate 12 06/05/2018 5:45 PM EDT Oxygen Saturation 95% 06/05/2018 5:45 PM EDT Inhaled Oxygen Concentration 95% 06/05/2018 5 :45 PM EDT Weight 127.7 kg (281 lb [...] over 101. FOR ANY QUESTIONS PLEASE CALL [phone]. THANK YOU! documented in this encounter Medications [...] with One Touch Verio meters. 150 strip 8 03/18/20 22 blood-glucose meter (BrightfishUCH VERIO SYSTEM) [facility] Use as instructed. 1 each 8 03/18/20 [...] InPnIndications:S/P liver transplant (CMS-HCC),Hyperglyc emia Inject subcutaneously 50 units in the [...] 11/11/19 20 tacrolimus (ENVARSUS XR) 1 mg [id number]:S/P liver transplant (CMS-HCC),Immunosup pression ([facility]) Take 2 mg by mouth daily. 60 tablet 5 8 10/17/19 19 documented as of this [...] to discharge area via wheelchair * Sussy oMody RN - 06/05/2018 5:00 PM EDT Pt's [...] Sedation Note Patient: Aiden Stauffer Procedure(s) Performed: [facility] Anesthesia type: Moderate IV Patient location: Cardiac Technical Support Director Post pain: Adequate analgesia Post assessment: no apparent anesthetic complications and tolerated procedure well Last Vitals: Vitals: 06/05/18 1221 BP: (!) 181/96 Pulse: 75 Temp: SpO2: 99% Post vital signs: stable Level of consciousness: awake, alert and oriented Complications: None Padma Montgomery MD Crayon Sawyer Cosigned by Jay Talley MD at 06/16/2018 8:28 PM EDT Associated attestation - Jay Talley MD - 06/16/2018 8:28 PM EDT Patient seen, examined and discussed with fellow. Agree with above plan. Jay Talley MD Cardiology Interventional Cardiology * Sussy Moody RN - 06/05/2018 3:12 PM EDT Pt returned from [facility] s/p [facility]. Bedside report received from JANA Turcios. Pt [...] test and pulmonary hypertension Planned procedure --- [facility] H&P reviewed and no changes NPO status [...] by mouth daily. ??? blood sugar diagnostic [facility] Use to test blood sugar up to 4 times a day. Diagnosis for use: E 9.65. For use with One Touch Verio meters. 150 strip 5 ??? blood-glucose meter (ONETOUCH VERIO SYSTEM) [facility] Use as instructed. 1 each 0 ??? [...] PM. ) 15 mL 5 ??? lancets (Uni2TOUCH DELICA LANCETS) 33 gauge [facility] Use 1 strip as directed 4 times [...] Plan: Proceed with procedure Padma Montgomery MD Crayon Sawyer Cosigned by Jay Talley MD at 06/05/2018 2:00 PM EDT Associated attestation - Jay Talley MD - 06/05/2018 2:00 PM EDT Patient seen, examined and discussed with fellow. Agree with above plan. Jay Talley MD Cardiology Interventional Cardiology documented in this encounter Plan of Treatment Upcoming Encounters Date Type Department Care Team (Late st Contact Info) Description 07/15/2024 9:00 AM EST Hospital Encounter [facility] Interventional Radiology [address] [place] [phone] Herve Carrillo MD [address] [place] [phone] documented as of this encounter Procedures Procedure [...] CATH PROCEDURE LOG (06/05/2018 3:25 PM EDT) Scanning [facility] SCAN DOCS - NO RESULTS Final Res ult * LEFT AND RIGHT HEART CATHETERIZATION (06/05/2018 3:19 PM EDT) 06/05/2018 1:25 PM EDT Narrative RAD[facility] - 06/06/2018 2:19 PM EDT * *[facility]* Cardiac Technical Support Director [address] [place], [place] [address] CATHETERIZATION LAB STUDY Patient: ?? Stauffer, ?Age: ?43 ?Study ? 06/05/2018 ? Aiden ?Date: Patient ?[id number] ? Gender: M ? Study ? 01:25 [...] : ??Fluoroscopy dose: 72.8cGy. ? Location: ??Catheterization formerly [facility]. PROCEDURE: 1. ??Initial setup. The patient was [...] exchange. The sheath was exchanged for a [id number] pinnacle ?sheath. 5. ??Right heart catheterization. A 6f swan-viviana td catheter was ?advanced via the access site into the right atrium, right ?ventricle, pulmonary artery and wedge position under ?fluoroscopic guidance. 6. ??Right radial artery access. A 0hh43tj glidesheath - slender - ?.021 sheath was advanced into the vessel. 7. ??Left heart catheterization. A 5f pigtail 145 catheter was ?advanced across the aortic valve to the left ventricle under ?fluoroscopic guidance. 8. ??Selective left coronary angiography. A 8is383rv tig 4.0 catheter ?was advanced into the left coronary vessel ostium under ?fluoroscopic guidance. Contrast was injected. Images were ?obtained in multiple projections. 9. ??Selective right coronary angiography. A 3yb176cu tig 4.0 ?catheter was advanced into the [...] + +-----+ + !Condition1:Condition 1 - ?? !YvigplsJ5Wdhbnsocrdk!292.5!ml/min ? ! !Abelino ? ! ?! ? [...] and electronically signed by Jay Talley MD [id number] Procedure Note Jay Talley MD - 06/06/2018 * *[facility]* Cardiac Technical Support Director [address] [place] [address] CATHETERIZATION LAB STUDY Patient: Eh, Age: 43 Study 06/05/2018 Aiden Date: Patient [id number] Gender: M Study 01:25 PM ID: Time: [...] : Fluoroscopy dose: 72.8cGy. Location: [facility]. PROCEDURE: 1. Initial setup. The patient was brought to the laboratory in the fasting state. Surface ECG leads, blood pressure measurements, and pulse oximetric signals were monitored. 2. Skin preparation. The planned puncture sites were prepped and draped in the usual sterile manner. 3. Right internal jugular vein access. A 4f Healthy [employer] mini access kit sheath was advanced into the vessel. 4. Sheath exchange. The sheath was exchanged for a 0aq98mh pinnacle sheath. 5. Right heart catheterization. A 6f swan-viviana td catheter was advanced via the access site into the right atrium, right ventricle, pulmonary artery and wedge position under fluoroscopic guidance. 6. Right radial artery access. A 8un24hr glidesheath - slender - .021 sheath was advanced into the vessel. 7. Left heart catheterization. A 5f pigtail 145 catheter was advanced across the aortic valve to the left ventricle under fluoroscopic guidance. 8. Selective left coronary angiography. A 2ho478bz tig 4.0 catheter was advanced into the left coronary vessel ostium under fluoroscopic guidance. Contrast was injected. Images were obtained in multiple projections. 9. Selective right coronary angiography. A 6yh557cr tig 4.0 catheter was advanced into the [...] !RA pressure a/v (m) ! () ! + + + !RV pressure s/d !50/12 ! + + + !PA pressure s/d (m) !5015 (29) ! + + + !PA wedge [...] + + +-----+ + !Condition1:Condition 1 - !VtrfoztX7Dkacudzzrjh!292.5!ml/min ! !Abelino ! ! ! ! + [...] +-----+-----+ !Condition1:Condition 1!PeakdPdt - LV - 6 !8 !-----! + + +-----+-----+ !Condition1:Condition 1!VDiastolic - [...] and electronically signed by Jay Talley MD [id number] [place] [id number] Final R esult RADNET * (ABNORMAL) POC Activated Clotting Time Low Range (06/05/2018 3:08 PM EDT) [facility] [address] Activated Clotting Time, Low Range POC 175(H) [...] 3:08 PM EDT 06/05/2018 3:16 PM EDT Fermín Schulte MD POINT OF CARE TEST ORDERABLES Fi nal Result Performing Organization Address [facility] de Phone Number [facility] [address] [place] [address] * (ABNORMAL) POC Oxyhemoglobin (06/05/2018 2:46 PM EDT) [facility] [address] POC Oxyhemoglobin 85.2(L) 95 - 98 % 018 7:34 AM EDT [facility] Comment:SEE CATH REPORT FOR COMPREHENSIVE RESULTS Arterial blood specimen (specimen) 06/05/2018 2:46 PM EDT 06/07/2018 7:34 AM EDT us Fermín Schulte MD LAB BLOOD ORDERABLES Final Resul t Performing Organization Address [facility] de Phone Number [facility] [address] * (ABNORMAL) POC Oxyhemoglobin (06/05/2018 2:33 PM EDT) [facility] [address] POC Oxyhemoglobin 61.4(L) 95 - 98 % 018 7:35 AM EDT [facility] Comment:SEE CATH REPORT FOR COMPREHENSIVE RESULTS Arterial blood specimen (specimen) 06/05/2018 2:33 PM EDT 06/07/2018 7:35 AM EDT Fermín Schulte MD LAB BLOOD ORDERABLES Final Resul t Performing Organization Address [facility] de Phone Number [facility] [address] [facility] * (ABNORMAL) POC Oxyhemoglobin (06/05/2018 2:31 PM EDT) [facility] [address] POC Oxyhemoglobin 61.1(L) 95 - 98 % 018 7:36 AM EDT [facility] Comment:SEE CATH REPORT FOR COMPREHENSIVE RESULTS Arterial blood specimen (specimen) 06/05/2018 2:31 PM EDT 06/07/2018 7:35 AM EDT us Fermín Schulte MD LAB BLOOD ORDERABLES Final Resul t Performing Organization Address [facility] de Phone Number [facility] [address] [facility]. [address] * Protime-INR (06/05/2018 12:15 PM EDT) Pathologist [facility] Protime 14.2 11.8 - 14.8 seconds 06/05/2018 12:48 PM EDT HEALTH LAB INR 1.1 0.9 - 1.1 06/05/2018 12:48 PM EDT HEALTH LAB Comment: RECOMMENDED THERAPEUTIC RANGES USING INR : ?Stable oral anticoagulant therapy: ? 2.0 - 3.0 ?Mechanical prosthetic heart valve: ? 2.5 - 3.5 ?Recurrent acute myocardial infarction: ? 2.5 - 3.5 Plasma specimen (specimen) 06/05/2018 12:15 PM EDT 06/05/2018 12:29 PM EDT Narrative [facility] - 06/05/2018 12:48 PM EDT If not done within 14 days Chiquita Aponte CNP LAB BLOOD ORDERABLES Final Re sult Performing Organization Address [facility] Co de Phone Number [facility] [address] * APTT, No Anticoagulant (06/05/2018 12:15 PM EDT) aPTT 28.6 25.5 - 35.0 seconds 06/05/2018 12:49 PM EDT [facility] Plasma specimen (specimen) 06/05/2018 12:15 PM EDT 06/05/2018 12:29 PM EDT Chiquita Aponte CNP LAB BLOOD ORDERABLES Final Re sult Performing Organization Address [facility] de Phone Number [facility] [address] [facility]. [address] * (ABNORMAL) Basic metabolic panel (06/05/2018 12:15 PM EDT) Sodium 142 133 - 146 mmol/L 06/05/2018 1:03 PM EDT [facility] Potassium 4.6 3.5 - 5.3 mmol/L 06/05/2018 1:03 PM EDT [facility] Chloride 108 98 - 110 mmol/L 06/05/2018 1:03 PM EDT [facility] CO2 24 21 - 33 mmol/L 06/05/2018 1:03 PM EDT [facility] Anion Gap 10 3 - 16 mmol/L 06/05/2018 1:03 PM EDT [facility] BUN 33(H) 7 - 25 mg/dL 06/05/2018 1:03 PM EDT [facility] Creatinine 1.89(H) 0.60 - 1.30 mg/dL 06/05/2018 1:03 PM EDT [facility] Glucose 138(H) 70 - 100 mg/dL 06/05/2018 1:03 PM EDT [facility] Calcium 8.9 8.6 - 10.3 mg/dL 06/05/2018 1:03 PM EDT [facility] Osmolality, Calculated 303 278 - 305 mOsm/kg 06/05/2018 1:03 PM EDT [facility] eGFR AA CKD-EPI 49 See note. 8 1:03 PM EDT [facility] Comment: As of 2015 the estimated [...] equation to estimate glomerular filtration rate. ??Jennifer Compounding Pharmacy Technician Med. 2009:150(9):604-12 eGFR NONAA CKD-EPI 42 See note. 2017 1:03 PM EDT [facility] Comment: As of 2015 the estimated [...] equation to estimate glomerular filtration rate. ??Jennifer Compounding Pharmacy Technician Med. 2009:150(9):604-12 Plasma specimen (specimen) 06/05/2018 12:15 PM EDT 06/05/2018 12:29 PM EDT Narrative [facility] - 06/05/2018 1:03 PM EDT Stat for all patients with a history of Diabetes, unless recent Creatinine level (1-7 days) is available us Chiquita Aponte [facility] BLOOD ORDERABLES Final Re sult [facility] [address] * (ABNORMAL) CBC (06/05/2018 12:15 PM EDT) WBC 4.1 3.8 - 10.8 10E3/uL 06/05/2018 12:39 PM EDT [facility] RBC 3.02(L) 4.20 - 5.80 10E6/uL 06/05/2018 12:39 PM EDT [facility] Hemoglobin 9.4(L) 13.2 - 17.1 g/dL 06/05/2018 12:39 PM EDT [facility] Hematocrit 27.7(L) 38.5 - 50.0 % 06/05/2018 12:39 PM EDT [facility] MCV 91.7 80.0 - 100.0 fL 06/05/2018 12:39 PM EDT [facility] MCH 31.2 27.0 - 33.0 pg 06/05/2018 12:39 PM EDT [facility] MCHC 34.0 32.0 - 36.0 g/dL 06/05/2018 12:39 PM EDT [facility] RDW 13.5 11.0 - 15.0 % 06/05/2018 12:39 PM EDT [facility] Platelets 188 140 - 400 10E3/uL 06/05/2018 12:39 PM EDT [facility] MPV 6.8(L) 7.5 - 11.5 fL 06/05/2018 12:39 PM EDT [facility] Whole blood specimen (specimen) 06/05/2018 12:15 PM EDT 06/05/2018 12:29 PM EDT Narrative [facility] - 06/05/2018 12:39 PM EDT If not done within 14 days Chiquita Aponte [facility] BLOOD ORDERABLES Final Re sult [facility] [address] * ECG 12 lead (MUSE) (06/05/2018 12:14 PM EDT) 06/05/2018 12:1 4 PM EDT Narrative MUSE - 06/06/2018 5:31 PM EDT Ventricular Rate: ??72 ??BPM Atrial Rate: ??72 ??BPM P-R Interval: ??146 ??ms QRS Duration: ??86 ??ms QT: ??422 ??ms QTc: ??462 ??ms P Tynan: ??66 ??degrees R Tynan: ??51 ??degrees T Tynan: ??52 ??degrees Diagnosis Line: ??NORMAL SINUS RHYTHM ^ NORMAL ECG ^ COMPARED TO THE ECG OF 26-APR-2018 19:36, ^ THERE IS NO SIGNIFICANT CHANGE ^ Confirmed by JE PEREZ MD ([id number]) on 06/06/2018 5:31:30 PM us Chiquita Aponte CNP ECG ORDERABLES Final Result MUSE * (ABNORMAL) POC Glucose Monitoring Device (06/05/2018 12:14 PM EDT) POC Glucose Monitoring Device 143(H) 70 - 100 mg/dL 06/05/2018 12:20 PM EDT Motility Count LAB Blood specimen (specimen) 06/05/2018 12:14 PM EDT 06/05/2018 12:20 PM EDT Fermín Schulte MD POINT OF CARE TEST ORDERABLES Fi nal Result Motility Count LAB [address] documented in this encounter Visit Diagnoses [...] cardiovascular system function study S/P liver transplant ([facility]) documented in this encounter Administered Medications Inactive [...] Given 06/05/2018 12:21 PM EDT 243 mg sodium chloride 0.9 % infusion 100 mL/hr, Intravenous, Continuous, Starting on Mon06/05/18 at 1200, Pre-Procedure(Invasive Cardiology) New Bag 06/05/2018 12:26 PM EDT 100 mL/hr 100 mL/hr documented in this encounter Active and [...] Mon06/05/18 at 1400, For 1 dose, For Technical Support Director only. Please communicate with MD before administering the dose HIGH ALERT MEDICATION 1400 (Due)1413 (Give n - Provider: Ronald Bernal RN) midazolam (PF) (VERSED) injection 1 mg (COMPLETED) 1 mg, Intravenous, Once, On Mon06/05/18 at 1400, For 1 dose, For Technical Support Director only. Please communicate with MD before administering the dose 1400 (Due)1413 (Give n - Provider: Ronald Bernal RN) oxyCODONE (ROXICODONE) immediate release tablet 2.5 mg 2.5 mg, Oral, Once, On Mon06/05/18 at 1730, For 1 dose 1904 (Not Given - Pr ovider: Sussy Moody RN - Reason: Other) Continuous Medication Order 06/03/2018 06/04/2018 06/05/2018 sodium chloride 0.9 % infusion 100 mL/hr, Intravenous, Continuous, Starting on Mon06/05/18 at 1200, Pre-Procedure(Invasive Cardiology) 1226 (New Bag - Prov ider: Gem Santos RN)1715 (Stopped - Provider: Sussy Moody RN) PRN Medication Order 06/03/2018 06/04/2018 06/05/2018 fentaNYL (SUBLIMAZE) injection (CANCELED) Intra-op PRN, Starting on Mon06/05/18 at 1431, Intra-procedure(Invasive Cardiology) 1431 (Given - Provid er: Ronald Bernal RN)1506 (Given - Provider: Ronald Bernal RN) heparin (porcine) injection (CANCELED) Intra-op PRN, Starting on Mon06/05/18 at 1447, Intra-procedure(Invasive Cardiology) 1447 (Given - Provid er: Ronald Bernal RN) midazolam (PF) (VERSED) injection (CANCELED) Intra-op PRN, Starting on Mon06/05/18 at 1431, Intra-procedure(Invasive Cardiology) 1431 (Given - Provid er: Ronald Bernal RN)1508 (Given - Provider: Ronald Bernal, RN) verapamil (ISOPTIN) injection (CANCELED) Intra-op PRN, Starting on Mon06/05/18 at 1443, Intra-procedure(Invasive Cardiology) 1443 (Given - Provid er: Padma Montgomery MD) No Frequency Medication Order 06/03/2018 06/04/2018 06/05/2018 acetaminophen (TYLENOL) 325 MG tablet (COMPLETED) Starting on Mon06/05/18 at 1249, For 1 dose, GEM SANTOS M: cabinet override 1251 (Given - Provid er: Gem Santos RN) aspirin 81 MG chewable tablet (COMPLETED) Starting on Mon06/05/18 at 1219, For 1 dose, GEM SANTOS M: cabinet override 1221 (Given - Provid er: Gem Santos RN) documented in this encounter Additional Health Concerns Assessment Noted Time PHQ-9 Depression Total Score: 0 12/06/19 18 3:00 PM EDT documented as of this encounter Care Teams Concrete Stone Fabricator Relationship Specialty Start Date End Date Edgar Fournier MD [address] [place] [address] [place] [address] PCP - General 08/18/17 06/23/21 Maile Valles, JANA Txp Post Coordinator Transplant Hepatology 11/07/17 Jack Ordoñez MD [address] [place] [phone] Consulting Physician Transplant Hepatology 01/05/18 documented as of this encounter
--- OUTSIDE RECORDS SUMMARY | 2024-07-12 12:51 | XMS_ITS | Encounter Summary ---
Author Organization [facility] Address [facility] [place] [address] Care Team Providers Care Silk Screen Cutter Name Role Phone Edgar Fournier MD Primary Care Provider [phone] Maile Valles RN Unavailable Unavail able Jack Ordoñez MD Unavailable [phone] Source Comments This information has been [...] release of HIV test results or diagnoses. [id number] Reason for Visit * Reason Comments Liver Transplant Follow-up Encounter Details Date Type Department Care Team (Late st Contact Info) Description 05/07/2018 10:35 AM EDT Office Visit [facility] Liver Transplant [facility] [address] [place] [phone] Jack Ordoñez MD [address] [place] [phone] Liver transplanted ([facility]) (Primary Dx); Immunosuppression (CMS-HCC) Social History Tobacco [...] Sign Reading Time Taken Comments Blood Pressure 192/97 05/07/2018 7:00 AM EDT patient has not taken meds due to stress test later today Pulse 73 05/07/2018 7:00 AM EDT Temperature 36.6 ??C (97.9 ??F) 05/07/2018 7 :00 AM EDT Respiratory Rate 18 05/07/2018 7:00 AM EDT Oxygen Saturation 97% 05/07/2018 7:0 0 AM EDT Inhaled Oxygen Concentration 97% 05/07/2018 7:00 AM EDT Weight 126.1 kg (278 lb) 05/07/2018 7:0 0 AM EDT Height 170.2 cm (5' 7 ) 05/07/2018 7:00 AM EDT Body Mass Index 43.54 05/07/2018 7:00 AM EDT documented in this encounter Patient Instructions * Patient Instructions* Jack Ordoñez MD - 05/07/2018 10:35 AM EDT Plan: 1. Continue Envarsus 2 mg daily. 2. Continue Cellcept 750 mg twice daily 3. Would check labs every 2 weeks including: CBC, renal, hepatic profile, and tacrolimus trough. 4. Would recommend annual visit to Dermatology for skin cancer surveillance. 5. Please use SPF 30 or higher sunscreen, hat, long-sleeves and sunglasses while in the sun. 6. Please continue age appropriate cancer screening including: colonoscopy, prostate exam. 7. Will check HgA1C, Vit D, Lipid profile, and urine protein / Cr ratio on annual basis with your PCP. 8. Please discuss with your blood pressure with your PCP. 9. Continue Entecavir daily for HBcAb+ liver. 10. Gold galo to keep area dry. 11. Return in 3 months. documented in this encounter Progress Notes * Jack Ordoñez MD - 05/07/2018 10:35 AM EDT Subjective: Aiden Stuaffer is a 43 y.o. 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 The patient was last seen in February 2018. He received a [facility] high risk donor, who was [...] insufficiency) and cellcept 750 mg twice daily. Reports side effects from Envarsus. Antimicrobial prophylaxis includes pentamadine (bactrim d/c due to renal dysfunction, stop date 04/07/18) and valcyte (stop date 04/07/18). Cr2. Co-morbidities include hypertension and DM for which he is on insulin. Still struggling with HTN. With regards to the hypoxia, he was evaluated by pulmonology and it was felt to be multifactorial from hepatopulmonary syndrome (noted on pre-op echo), volume overload and atelectasis. He underwent VQ scan which was negative for PE and CT chest was was relatively unremarkable. This has resolved without intervention. He presents today for followup. He is [...] renal sparing effects and low cyclosporine levels. Continue Envarsus 2 mg daily. Continue Cellcept 750 mg twice daily Would check labs every 2 weeks including: CBC, renal, hepatic profile, and tacrolimus trough. Would recommend annual visit to Dermatology for skin cancer surveillance. Please use SPF 30 or higher sunscreen, hat, long-sleeves and sunglasses while in the sun. Please continue age appropriate cancer screening including: colonoscopy, prostate exam. Will check HgA1C, Vit D, Lipid profile, and urine protein / Cr ratio on annual basis with your PCP.Please discuss with your blood pressure with your PCP. Continue Entecavir daily for HBcAb+ liver. Gold galo to keep area dry. Return in 3 months. Plan: 1. Continue Envarsus 2 mg daily. 2. Continue Cellcept 750 mg twice daily 3. Would check labs every 2 weeks including: CBC, renal, hepatic profile, and tacrolimus trough. 4. Would recommend annual visit to Dermatology for skin cancer surveillance. 5. Please use SPF 30 or higher sunscreen, hat, long-sleeves and sunglasses while in the sun. 6. Please continue age appropriate cancer screening including: colonoscopy, prostate exam. 7. Will check HgA1C, Vit D, Lipid profile, and urine protein / Cr ratio on annual basis with your PCP. 8. Please discuss with your blood pressure with your PCP. 9. Continue Entecavir daily for HBcAb+ liver. 10. Gold galo to keep area dry. 11. Return in 3 months. * Connie Hand MA - 05/07/2018 10:35 AM EDT Review of Systems Constitutional: Negative. HENT: Negative. Eyes: Negative. Respiratory: Negative. Cardiovascular: Negative. Gastrointestinal: Negative. Genitourinary: Negative. Musculoskeletal: Positive for back pain. Skin: Negative. Neurological: Positive for tingling. Endo/Heme/Allergies: Negative. Psychiatric/Behavioral: Negative. Patient states he as put on prograf again and he does not feel well on it. * Bridgett Weaver PharmD - 05/07/2018 10:35 AM EDT Transplant Pharmacist Assessment and Recommendations: Current Outpatient Prescriptions Medication Sig ??? amLODIPine (NORVASC) 10 MG tablet Take 10 mg by mouth daily. ??? aspirin 81 MG chewable tablet Chew 1 tablet (81 mg total) by mouth daily with breakfast. ??? blood sugar diagnostic Strp Use to test blood sugar up to 4 times a day. Diagnosis for use: E 9.65. For use with One Touch Verio meters. ??? blood-glucose meter (ONETOUCH VERIO SYSTEM) [facility] [place] as instructed. ??? carvedilol (COREG) 25 [...] (1 mg total) by mouth daily. ??? ergocalciferol (VITAMIN D2) 50,000 unit capsule [...] ??? lancets (ONETOUCH DELICA LANCETS) 33 gauge [facility] Use 1 strip as directed 4 times daily before meals and at bedtime. ??? mycophenolate (CELLCEPT) 250 mg capsule Take 3 capsules (750 mg total) by mouth 2 times a day. ??? pen needle, diabetic 32 gauge x 5/32 Ndle Use as directed to inject insulin 4 times daily. ??? pen needle, diabetic 32 gauge x 5/32 Ndle For use with insulin pen. Use as instructed. ??? tacrolimus (ENVARSUS XR) 1 mg Tb24 Take 2 mg by mouth daily. Immunosuppression: THYMO BRIDGE POD 212 Perioperative immunosuppression regimen included: steroid taper, MMF, tacrolimus and Thymoglobulin (175mg x 1 dose on 10/09/17) Currently on Envarsus XR 2 mg daily and mycophenolate 750mg bid. MMF increased 04/10/18 for renal sparing. Previously on CsA due to significant tremors with Prograf (switched to CsA on 10/23). Reports tremors improved significantly with cyclosporine. Envarsus initiated 04/14/18 due to rising creatinineand low CsA levels. Administers medications at: 9AM, 3PM and 9PM. ??Immunosuppression at 9AM and 9PM. Goal Tacrolimus level is 3-8 ng/mL. Latest Tacrolimus level: Tacrolimus Lvl Date Value Ref Range Status 05/07/2018 3.7 (L) 5.0 - 20.0 ng/mL Final Comment: Detection limit: 2 ng/mL. Performed via chemiluminescent microparticle immunoassay on the [employer] Converter i1000. 04/26/2018 3.7 (L) 5.0 - 20.0 ng/mL Final Comment: Detection limit: 2 ng/mL. Performed via chemiluminescent microparticle immunoassay on the [employer] Converter i1000. Rejection in the past 12 months: none ?? Prophylaxis:?? Viral (Valcyte 900mg daily): 6??months??per protocol (D+/R-). Completed. ?? PCP : 6??months per protocol. ??Completed. ASA: hepatic artery reconstruction Anti-HBcAb +/ALEXANDRA + donor: No HBIG given since HepB surface antibody 171. On entecavir 1 mg daily for life ?? Blood Sugars: diabetic prior to transplant. PCP managing Reports difficulty controlling his blood glucose since switching from CsA to Envarsus. Does not have log, but states his afternoon BG will be in the 200s and other times he will hold his morning NPH dose due to BG in 80s-90s mg/dL. Defer to PCP for management. ?? Blood pressure: on coreg and nifedipine 192/97 mmHg today. Reports not happy with BP control. His angledozer operator wanted him to be on nifedipine XL 90 BID, but did not call in the prescription correctly and his insurance denied it. He is now on amlodipine 10 mg daily and carvedilol 50 mg BID and taking clonidine 0.1 mg nightly (states it isprescribed as needed, but does not know parameters). Defer to PCP/angledozer operator for management. ? Other: Medication effects: Patient with many questions/complaints about immunsuppressive regimen change. Attributes rash and lower leg edema and fatigue to starting Envarsus. Rash has since resolved. Stateshe used to be able to work 12 hours a day and now can barely work 6 hours at a time. Informed patient these are not common side effects of Envarsus. Renal dysfunction: Estimated Creatinine Clearance: 63.9 mL/min (A) (based on SCr of 1.88 mg/dL (H)). Creatinine improved since 03/2018. Continue to monitor. Gabapentin: was discontinued due to renal function and changed to Lyrica. Patient reports adverse effects (bloating and increased appetite) so discontinued. Restarted gabapentin 02/26/18. States sinceswitching to Envarsus his neuropathy has worsened. Vitamin D: patient's PCP restarted him on ergocalciferol 17640 units weekly after it was discontinued at last transplant clinic visit. States he should not be off of it since he has bone disease. Adherence: Patient reports missing 0??doses in the past 7 days The following barriers to adherence have been identified: None It is my assessment that the patient demonstrates good??adherence and medication understanding. ?? assists with medication management. ??She reviewed medication card with me in clinic today. ?? Recommendations: 1. Follow up labs from today to assess potential switch back to cyclosporine if patient not able/willing to tolerate Envarsus. 2. CMV DNA pending from today- follow up on result 3. BP: to see PCP for management 4. BS: to see PCP for management documented in this encounter Plan of Treatment Upcoming Encounters Date Type Department Care Team (Late st Contact Info) Description 07/15/2024 9:00 AM [facility] Hospital Encounter [facility] Interventional Radiology [address] [place] [phone] Herve Carrillo MD [address] [facility] [address] [facility] [place] [phone] documented as of this encounter Visit Diagnoses Diagnosis Liver transplanted (CMS-HCC)- Primary Liver replaced by transplant Immunosuppression (CMS-HCC) documented in this encounter Additional Health Concerns Assessment Noted Time PHQ-9 Depression Total Score: 0 12/06/19 18 3:00 PM EDT documented as of this encounter Care Teams Silk Screen Cutter Relationship Specialty Start Date End Date Edgar Fournier MD [address] [place] [address] PCP - General 08/18/17 06/23/21 Maile Valles, RN Txp Post Coordinator Transplant Hepatology 11/07/17 Jack Ordoñez MD [address] [place] [address] Consulting Physician Transplant Hepatology 01/05/18 documented as of this encounter
--- OUTSIDE RECORDS SUMMARY | 2024-07-12 12:51 | XMS_ITS | Encounter Summary ---
Author Organization [facility] Address [address] [place] [address] Care Team Providers Care Almond Blancher Operator Name Role Phone Edgar Fournier MD Primary Care Provider [phone] Maile Valles RN Unavailable Unavail able Jack Ordoñez MD Unavailable [phone] Source Comments This information has been [...] release of HIV test results or diagnoses. [id number] Reason for Referral * Imaging/Cardiovascular Scan (Routine) - Closed Specialty Diagnoses / Procedures Referred By Contac t Referred To Contact Cardiology Diagnoses Chest pain, unspecified type SOB (shortness of breath) Procedures GXT-For Nuclear Image Edgar Fournier MD [address] [place] [phone] Phone: tel: Referral ID Status Reason Start Date Expiration Date Visits Re quested Visits Authorized [id number] Closed 05/07/2018 11/03/2018 1 1 * Imaging/Cardiovascular Scan (Routine) - Closed Specialty Diagnoses / Procedures Referred By Declan t Referred To Contact Radiology Diagnoses Chest pain, unspecified type SOB (shortness of breath) Procedures NM Myocardial perf stress and rest SPECT Edgar Fournier MD [address] [place] [address] [place] [address] Phone: tel: Referral ID Status Reason Start Date Expiration Date Visits Re quested Visits Authorized [id number] Closed 05/07/2018 07/05/2018 4 4 Reason for Visit * Auth/Cert Specialty Diagnoses / Procedures Referred By Declan hines Referred To Contact Cardiology [facility] Nuclear Cardiology [address] [place] [phone] Phone: tel: Referral ID Status Reason Start Date Expiration Date Visits Re quested Visits Authorized [id number] 1 1 Encounter Details Date Type Department Care Team (Latest Contact Info) Description 05/07/2018 12:00 PM EDT - 05/07/2018 12:30 PM EDT Hospital Encounter [facility] Nuclear Cardiology [address] [place] [phone] System, Provider Not In Chest pain, unspecified type; SOB (shortness of breath) Discharge Disposition: Home [...] 150 strip 8 03/18/20 22 blood-glucose meter (ONETOUCH VERIO SYSTEM) [facility] [place] Use as instructed. 1 each 8 03/18/20 22 carvedilol (COREG) 25 MG tablet Take 2 tablets (50 mg total) by mouth 2 times a day with meals. 120 tablet 8 03/12/20 20 cloNIDine HCl (CATAPRES) 0.1 MG tablet Take 0.1 mg by mouth if needed. 01/18/20 19 diazePAM (VALIUM) 10 MG tablet 8 09/13/19 19 doxazosin (CARDURA) 2 MG tablet Take 8 mg by mouth at bedtime. 09/13/19 19 entecavir (BARACLUDE) 1 MG tablet Take 1 tablet (1 mg total) by mouth daily. 30 tablet 8 10/27/19 19 EPITOL 200 mg tablet 8 09/13/19 19 ergocalciferol (ERGOCALCIFEROL) 1,250 mcg (50,000 unit) capsule Take 50,000 Units by mouth every Monday, , and Monday. 03/18/20 22 gabapentin (NEURONTIN) 600 MG tablet Take 800 mg by mouth 3 times a day. Taking 800mg in the AM, 1200mg at 6pm, and then 800mg at 9pm 01/18/20 19 insulin glulisine U-100 (APIDRA U-100 INSULIN) [...] 19 lancets (ONETOUCH DELICA LANCETS) 33 gauge [facility] Use 1 strip [...] 11/11/19 20 tacrolimus (ENVARSUS XR) 1 mg [id number]/P liver transplant (CMS-HCC),Immunosup pression (CMS-HCC) Take 2 mg by mouth daily. 60 tablet 8 10/17/19 19 documented as of this encounter Procedure Notes * Merline Morelos [facility] - 05/07/2018 2:46 PM EDT Stress test ordered :Pharmacological Lexiscan Ordering physician : Antonio Chacon MD Attending/Fellow : Rosendo Flores MD /Dr. Palafox Conducted by : JEANNIE Fung, monitor/D [facility] RN Consent obtained : Yes Last meal : 24 Hours Caffeine last ingested : 24 Hours Patient on B-Jazmyn/Calcium channel jazmyn/Nitro : Yes Last B-jazmyn/CCB/Nitro dose: 24 Hours Patient information : 43 y.o. male Please note that all the stress test vitals are documented in [place]. There is no height or weight on file to calculate BMI. The Patient is 5'7 and his weight is 260 lbs Activity : 3 - Walking on a flat surface for one or two blocks. Indications : assessment of acute chest pain Risk factors:diabetes mellitus and hypertension Previous MD: No Previous stents or CABG : No [...] 5 ??? blood-glucose meter (ONETOUCH VERIO SYSTEM) [facility] Use as instructed. [...] PM. ) 15 mL 5 ??? lancets (Remedy PartnersTOUCH DELICA LANCETS) 33 gauge [facility] Use 1 strip [...] Doctor office will call with result to [phone] Pre-Exercise Murmurs : No Pulmonary Examination : Clear Post Exercise Murmurs : No Pulmonary Examination : Lungs are CTA bilaterally, respirations are regular and easy. Post stress Comments : Baseline EKG reviewed by Dr. Palafox and ok to proceed with procedure. Resting HR 75 and resting BP 171/95. Stress HR 109 and stress BP 149/91. Pt. Given Lexiscan while sitting and c/o SOB, fatigue, headache and chest tightness 5/10. Pt. Drinking soda with caffeine with symptoms relieved including no other c/l chest tightness. No significant EKG changes noted. Ending HR 89 and BP 170/89, no other symptoms verbalized. documented in this encounter Plan of Treatment Upcoming Encounters Date Type Department Care Team (Late st Contact Info) Description 07/15/2024 9:00 AM EST Hospital Encounter [facility] Interventional Radiology [address] [place] [address] Herve Carrillo MD [address] [facility] [place] [address] documented as of this encounter Procedures Procedure Name Priority Date/Time Associated Diagnosis Comments GXT EXERCISE FOR NUCLEAR IMAGE Routine 05/07/2018 3:46 PM EDT Chest pain, unspecified type SOB (shortness of breath) NM MYOCARDIAL PERF MULTI SPECT Routine 05/07/2018 3:46 PM EDT Chest pain, unspecified type SOB (shortness of breath) STRESS TESTING LAB - SCAN 05/07/2018 12:00 AM EDT documented in this encounter Results * NM [...] FLORES M.D. at 05/07/2018 4:57 PM EDT Procedure Note Rosendo Flores MD - 05/07/2018 FINAL INTERPRETATION Abnormal study [...] patient at rest (heart rate 75, blood [id number]) cardiac SPECT imaging was performed one hour [...] FLORES M.D. at 05/07/2018 4:57 PM EDT us Provider Not In System IM NM ORDERABLES Final R esult * GXT-For [...] ^ Confirmed by MARK ??ROSENDO PEREZ ([id number]), editor managing director Denae Gauthier ([id number]) on 05/08/2018 7:20:53 AM Procedure Note Rosendo Flores MD - 05/08/2018 Acquisition device: CASE Protocol Name: LEXISCAN Exercise Time: 00:08:21 : CHEST PAIN RESTING ECG : Resting Blood Pressure: 171&95& mmHg DURING EXERCISE : Maximum Blood Pressure: 175&65 mmHg Maximum Heart Rate: 109 BPM : Yes Target HR Reached: No POST EXERCISE : : No Interpretation: Ecg interpretation included with stress nuclear perfusionscan. ECG strips stored in MUSE. ^ Confirmed by ROSENDO FLORES MD ([id number]),editor managing director Denae Gauthier ([id number]) on 05/08/2018 7:20:53 AM us Provider Not In System CV CARDIAC SERVICES ORDER ASHISH Final Result RADNET * STRESS TESTING LAB - SCAN (05/07/2018 12:00 AM EDT) us Scanning Uchhim SCAN DOCS - NO RESULTS Final Res ult documented in this encounter Visit Diagnoses Diagnosis Chest pain, unspecified type SOB (shortness of breath) Shortness of breath documented in this encounter Administered Medications Inactive Administered Medications - up to 3 most recent administrations Medication Order MAR Action Action Date Dose Rate Site regadenoson (LEXISCAN) 0.4 mg/5 mL syringe 0.4 mg 0.4 mg, Intravenous, Once, On 05/07/18 at 1500, For 1 dose, IV injection over 10 seconds as a one time dose. May use peripheral vein or a 22-gauge or larger catheter needle. Give a 5mL Saline Flush immediately after regadenoson injection. Administer radionucleotide imaging agent 10-20 seconds after the saline flush. Given 05/07/2018 2:30 PM EDT 0.4 mg sodium chloride flush 5 mL 5 mL, Intravenous, Once, On 05/07/18 at 1500, For 1 dose, Administer immediately after regadenoson (LEXISCAN) IV Push dose given. Given 05/07/2018 2:30 PM EDT 5 mLs Tc-99m technetium tetrofosmin (MYOVIEW) 14.78 millicurie 14.78 millicurie, Intravenous, IMG once as needed, contrast, Starting on Mon05/07/18 at 1444, For 1 dose Given 05/07/2018 2:15 PM EDT 14.78 millicuries documented in this encounter Additional Health Concerns Assessment Noted Time PHQ-9 Depression Total Score: 0 12/06/19 18 3:00 PM EDT documented as of this encounter Care Teams Almond Blancher Operator Relationship Specialty Start Date End Date Edgar Fournier MD [address] [place] [address] [place] [address] PCP - General 08/18/17 06/23/21 Maile Valles, RN Txp Post Coordinator Transplant Hepatology 11/07/17 Jack Ordoñez MD [address] [place] [phone] Consulting Physician Transplant Hepatology 01/05/18 documented as of this encounter
--- OUTSIDE RECORDS SUMMARY | 2024-07-12 12:51 | XMS_ITS | Encounter Summary ---
Author Organization [facility] Address [address] [place] [address] Care Team Providers Care Animal Nutrition Teacher Name Role Phone Edgar Fournier MD Primary Care Provider [phone] Maile Valles RN Unavailable Unavail able Jack Ordoñez MD Unavailable [phone] Source Comments This information has been [...] release of HIV test results or diagnoses. [id number] Encounter Details Date Type Department Care Team (Late st Contact Info) Description 05/25/2018 Abstract [facility] Gastroenterology at [place] [facility] [address] [facility] [address] [place] [phone] Yoli Mcbride MA Social History Tobacco Use [...] Encounter [facility] Interventional Radiology [address] [place] [phone] Herve Carrillo MD [address] [place] [place] [address] documented as of this encounter Procedures Procedure Name Priority Date/Time Associated Diagnosis Comments CBC Routine 05/24/2018 8:46 AM EDT GLUCOSE, RANDOM Routine 05/24/2018 8:46 AM EDT HEPATIC FUNCTION PANEL Routine 05/24/2018 8:46 AM EDT RENAL FUNCTION PANEL W/O EGFR Routine 05/24/2018 8:46 AM EDT documented in this encounter Results * Glucose, random (05/24/2018 8:46 AM EDT) Glucose 159 60 - 200 mg/dL Plasma specimen (specimen) Historical Provider LAB BLOOD ORDERABLES Yoselin l Result * (ABNORMAL) Hepatic function panel (05/24/2018 8:46 AM EDT) Alkaline Phosphatase 164 U/L ALT 25 U/L AST 15 U/L Total Bilirubin 0.2 0.1 - 1.4 mg/dL Protein, Total 6.2 Albumin 3.1(A) 3.5 - 5.0 g/dL Blood specimen (specimen) Historical Provider LAB BLOOD ORDERABLES Yoselin l Result * (ABNORMAL) Renal Function Panel w/o EGFR (05/24/2018 8:46 AM EDT) Creatinine 1.9 BUN 29(A) 4 - 21 mg/dL Potassium 5 3.4 - 5.3 mmol/L Sodium 141 137 - 147 mmol/L Chloride 107 99 - 108 mmol/L Magnesium 1.9 1.6 - 2.4 mg/dL Calcium 8.6(A) 8.7 - 10.7 mg/dL Blood specimen (specimen) Historical Provider LAB BLOOD ORDERABLES Yoselin l Result * (ABNORMAL) CBC (05/24/2018 8:46 AM EDT) Hemoglobin 9.4(A) 13.5 - 17.5 g/dL Hematocrit 26.5(A) 41 - 53 % MCH 32 26.0 - 34.0 pg MCV 90.1 82.0 - 108.0 fL WBC 3.8 10^3/mL Platelets 222 Whole blood specimen (specimen) Historical Provider LAB BLOOD ORDERABLES Yoselin l Result documented in this encounter Visit Diagnoses Not on filedocumented in this encounter Additional Health Concerns Assessment Noted Time PHQ-9 Depression Total Score: 0 12/06/19 18 3:00 PM EDT documented as of this encounter Care Teams Animal Nutrition Teacher Relationship Specialty Start Date End Date Edgar Fournier MD [address] [place] [address] [place] [address] PCP - General 08/18/17 06/23/21 Maile Valles, RN Txp Post Coordinator Transplant Hepatology 11/07/17 Jack Ordoñez MD [address] [place] [phone] Consulting Physician Transplant Hepatology 01/05/18 documented as of this encounter
--- OUTSIDE RECORDS SUMMARY | 2024-07-12 12:51 | XMS_ITS | Encounter Summary ---
Author Organization [facility] Address [facility] [place] [address] Care Team Providers Care Notch Grinder Name Role Phone Edgar Fournier MD Primary Care Provider [phone] Maile Valles RN Unavailable Unavail able Jack Ordoñez MD Unavailable [phone] Source Comments This information has been [...] release of HIV test results or diagnoses. [id number] Reason for Visit * Reason Comments Labs Only Encounter Details Date Type Department Care Team (Late st Contact Info) Description 05/07/2018 11:10 AM EDT Specimen [facility] Outreach Lab [address] [place] [phone] Jack Ordoñez MD [address] [place] [phone] Transplanted liver (CMS-HCC); Drug therapy; S/P liver [...] [facility] Interventional Radiology [address] [place] [phone] Herve Carrillo MD 7[address] [facility] 3200 [place] [phone] documented as of this encounter Procedures Procedure Name Priority Date/Time Associated Diagnosis Comments CYTOMEGALOVIRUS DNA, QUANT, RT PCR Routine 05/07/2018 10:40 AM EDT S/P liver transplant (CMS-HCC) Immunosuppression (CMS-HCC) HEPATIC FUNCTION PANEL Routine 8 10:40 AM EDT Transplanted liver (CMS-HCC) Drug therapy RENAL FUNCTION PANEL W/EGFR Routine 05/07/2018 10:40 AM EDT Transplanted liver (CMS-HCC) Drug therapy TACROLIMUS LEVEL Routine 05/07/2018 10:4 0 AM EDT S/P liver transplant (CMS-HCC) Immunosuppression (CMS-HCC) CYCLOSPORINE LEVEL Routine 05/07/2018 10 :40 AM EDT Transplanted liver (CMS-HCC) Drug therapy DIFFERENTIAL Routine 05/07/2018 10:40 AM EDT Transplanted liver (CMS-HCC) Drug therapy CBC Routine 05/07/2018 10:40 AM EDT Transplanted liver (CMS-HCC) Drug therapy MAGNESIUM Routine 05/07/2018 10:40 AM EDT Transplanted liver (CMS-HCC) Drug therapy documented in this encounter Results * (ABNORMAL) Tacrolimus level (05/07/2018 10:40 AM EDT) Tacrolimus Lvl 3.7(L) 5.0 - 20.0 ng/mL 05/07/2018 3:06 PM EDT [facility] Comment: Detection limit: ??2 ng/mL. ??Performed via chemiluminescent microparticle immunoassay on the [employer] Sign Painter i1000. Whole blood specimen (specimen) 05/07/2018 10:40 AM EDT 05/07/2018 11:49 AM EDT [facility] - 05/07/2018 3:06 PM EDT Standing labs every 2 weeks. Please fax results to [phone]; Critical results call [phone]. Jack Ordoñez MD LAB BLOOD ORDERABLES Final Re sult [facility] [address] * Cytomegalovirus DNA, Quant, RT PCR (05/07/2018 10:40 AM EDT) Pathologist [facility] CMV DNA Qnt Not Detected IU/mL 05/08/2018 8:28 PM EDT [facility] Comment:Test methodology for CMV quantification is an FDA-approved nucleic acid amplification assay. The Lower Limit of Quantitation (LLOQ) is 137 IU/mL; the linear range is 137- 9,100,000 IU/mL. The limit of Detection is (LoD) is 91 IU/mL. Log10 CMV Qn DNA PI See Note log 10 IU/mL 05/08/2018 8:28 PM EDT [facility] Comment:CMV DNA not detected Plasma specimen (specimen) 05/07/2018 10:40 AM EDT 05/07/2018 11:54 AM EDT [facility] - 05/08/2018 8:28 PM EDT Please fax results to [phone]. Jack Ordoñez MD LAB BLOOD ORDERABLES Final Re sult Performing Organization Address [facility]/ZIP Co de Phone Number [facility] [address] [facility]. [address] * Magnesium (05/07/2018 10:40 AM EDT) Magnesium 1.8 1.5 - 2.5 mg/dL 05/07/2018 12:24 PM EDT [facility] Plasma specimen (specimen) 05/07/2018 10:40 AM EDT 05/07/2018 11:49 AM EDT Narrative [facility] - 05/07/2018 12:24 PM EDT Standing labs every 2 weeks. Please fax results to [phone]; Critical results call [phone] Jack Ordoñez MD LAB BLOOD ORDERABLES Final Re sult Performing Organization Address [facility] Co de Phone Number [facility] [address] [facility]. [address] * (ABNORMAL) Renal Function Panel w/EGFR (05/07/2018 10:40 AM EDT) Sodium 142 133 - 146 mmol/L 05/07/2018 12:24 PM EDT [facility] Potassium 4.9 3.5 - 5.3 mmol/L 05/07/2018 12:24 PM EDT [facility] Chloride 110 98 - 110 mmol/L 05/07/2018 12:24 PM EDT [facility] CO2 24 21 - 33 mmol/L 05/07/2018 12:24 PM EDT [facility] Anion Gap 8 3 - 16 mmol/L 05/07/2018 12:24 PM EDT [facility] BUN 35(H) 7 - 25 mg/dL 05/07/2018 12:24 PM EDT [facility] Creatinine 1.88(H) 0.60 - 1.30 mg/dL 05/07/2018 12:24 PM EDT [facility] Glucose 104(H) 70 - 100 mg/dL 05/07/2018 12:24 PM EDT [facility] Calcium 8.5(L) 8.6 - 10.3 mg/dL 05/07/2018 12:24 PM EDT [facility] Phosphorus 4.1 2.1 - 4.7 mg/dL 05/07/2018 12:24 PM EDT [facility] Albumin 3.5 3.5 - 5.7 g/dL 05/07/2018 12:24 PM EDT [facility] Osmolality, Calculated 302 278 - 305 mOsm/kg 05/07/2018 12:24 PM EDT [facility] eGFR AA CKD-EPI 49 See note. 8 12:24 PM EDT [facility] Comment: As of 2015 [...] equation to estimate glomerular filtration rate. ??[facility] [employer]. 2009:150(9):604-12 eGFR NONAA CKD-EPI 42 See note. 2017 12:24 PM EDT [facility] Comment: As of 2015 [...] equation to estimate glomerular filtration rate. ??[facility] [employer] 2009:150(9):604-12 Plasma specimen (specimen) 05/07/2018 10:40 AM EDT 05/07/2018 11:49 AM EDT Narrative [facility] - 05/07/2018 12:24 PM EDT Standing labs every 2 weeks. Please fax results to [phone]; Critical results call [phone] Jack Ordoñez MD LAB BLOOD ORDERABLES Final Re sult Performing Organization Address [facility]/ZIP Co de Phone Number [facility] [address] * (ABNORMAL) Cyclosporine level (05/07/2018 10:40 AM EDT) Pathologist [facility] Cyclosporine, Blood <30(L) 100 - 400 ng/mL 05/07/2018 1:16 PM EDT [facility] Comment: Detection limit: ??30 ng/mL. ??Performed via chemiluminescent microparticle immunoassay on the [employer]ter i1000. Whole blood specimen (specimen) 05/07/2018 10:40 AM EDT 05/07/2018 11:49 AM EDT Narrative [facility] - 05/07/2018 1:16 PM EDT Standing labs every 2 weeks. Please fax results to [phone]; Critical results call [phone] Jack Ordoñez MD LAB BLOOD ORDERABLES Final Re sult Performing Organization Address [facility] Co de Phone Number [facility] [address] [facility]. [address] * (ABNORMAL) Hepatic Function Panel (05/07/2018 10:40 AM EDT) Pathologist [facility] Total Bilirubin 0.3 0.0 - 1.5 mg/dL 05/07/2018 12:24 PM EDT [facility] Bilirubin, Direct 0.06 0.00 - 0.40 mg/dL 05/07/2018 12:24 PM EDT [facility] AST 17 13 - 39 U/L 05/07/2018 12:24 PM EDT [facility] ALT 19 7 - 52 U/L 05/07/2018 12:24 PM EDT [facility] Alkaline Phosphatase 135(H) 36 - 125 U/L 05/07/2018 12:24 PM EDT [facility] Total Protein 6.2(L) 6.4 - 8.9 g/dL 05/07/2018 12:24 PM EDT [facility] Albumin 3.5 3.5 - 5.7 g/dL 05/07/2018 12:24 PM EDT [facility] Bilirubin, Indirect 0.24 0.00 - 1.10 mg/dL 05/07/2018 12:24 PM EDT [facility] Plasma specimen (specimen) 05/07/2018 10:40 AM EDT 05/07/2018 11:49 AM EDT Narrative [facility] - 05/07/2018 12:24 PM EDT Standing labs every 2 weeks. Please fax results to [phone]; Critical results call [phone] us Jack Ordoñez MD LAB BLOOD ORDERABLES Final Re sult [facility] [address] [place] [address], [facility] * (ABNORMAL) Differential (05/07/2018 10:40 AM EDT) Neutrophils Relative 60.6 40.0 - 80.0 % 05/07/2018 11:57 AM EDT [facility] Lymphocytes Relative 22.2 15.0 - 45.0 % 05/07/2018 11:57 AM EDT [facility] Monocytes Relative 11.8 0.0 - 12.0 % 05/07/2018 11:57 AM EDT [facility] Eosinophils Relative 4.8 0.0 - 8.0 % 05/07/2018 11:57 AM EDT [facility] Basophils Relative 0.6 0.0 - 1.0 % 05/07/2018 11:57 AM EDT [facility] nRBC 0 0 - 0 /100 WBC 05/07/2018 11:57 AM EDT [facility] Neutrophils Absolute 2,000 1,500 - 7,800 /uL 05/07/2018 11:57 AM EDT [facility] Lymphocytes Absolute 733(L) 850 - 3,900 /uL 05/07/2018 11:57 AM EDT [facility] Monocytes Absolute 389 200 - 950 /uL 05/07/2018 11:57 AM EDT [facility] Eosinophils Absolute 158 15 - 500 /uL 05/07/2018 11:57 AM EDT [facility] Basophils Absolute 20 0 - 200 /uL 05/07/2018 11:57 AM EDT [facility] Whole blood specimen (specimen) 05/07/2018 10:40 AM EDT 05/07/2018 11:49 AM EDT Narrative [facility] - 05/07/2018 11:57 AM EDT Standing labs every 2 weeks. Please fax results to [phone]; Critical results call [phone] us Jack Ordoñez MD LAB BLOOD ORDERABLES Final Re sult [facility] [address] [place] [address], [facility] * (ABNORMAL) CBC (05/07/2018 10:40 AM EDT) WBC 3.3(L) 3.8 - 10.8 10E3/uL 05/07/2018 11:57 AM EDT [facility] RBC 2.84(L) 4.20 - 5.80 10E6/uL 05/07/2018 11:57 AM EDT [facility] Hemoglobin 9.2(L) 13.2 - 17.1 g/dL 05/07/2018 11:57 AM EDT [facility] Hematocrit 26.3(L) 38.5 - 50.0 % 05/07/2018 11:57 AM EDT [facility] MCV 92.7 80.0 - 100.0 fL 05/07/2018 11:57 AM EDT [facility] MCH 32.4 27.0 - 33.0 pg 05/07/2018 11:57 AM EDT [facility] MCHC 35.0 32.0 - 36.0 g/dL 05/07/2018 11:57 AM EDT [facility] RDW 13.4 11.0 - 15.0 % 05/07/2018 11:57 AM EDT [facility] Platelets 169 140 - 400 10E3/uL 05/07/2018 11:57 AM EDT [facility] MPV 6.8(L) 7.5 - 11.5 fL 05/07/2018 11:57 AM EDT [facility] Whole blood specimen (specimen) 05/07/2018 10:40 AM EDT 05/07/2018 11:49 AM EDT Narrative [facility] - 05/07/2018 11:57 AM EDT Standing labs every 2 weeks. Please fax results to [phone]; Critical results call [phone] us Jack Ordoñez MD LAB BLOOD ORDERABLES Final Re sult [facility] [address] [facility]. [address] documented in this encounter Visit Diagnoses Diagnosis Transplanted liver (CMS-HCC) Liver replaced by transplant Drug therapy Encounter for other specified aftercare S/P liver transplant (CMS-HCC) Immunosuppression (CMS-HCC) documented in this encounter Additional Health Concerns Assessment Noted Time PHQ-9 Depression Total Score: 0 12/06/19 18 3:00 PM EDT documented as of this encounter Care Teams Notch Grinder Relationship Specialty Start Date End Date Edgar Fournier MD [address] [place] [address] [place] [address] PCP - General 08/18/17 06/23/21 Maile Valles, RN Txp Post Coordinator Transplant Hepatology 11/07/17 Jack Ordoñez MD [address] [place] [address] Consulting Physician Transplant Hepatology 01/05/18 documented as of this encounter
--- OUTSIDE RECORDS SUMMARY | 2024-07-12 12:51 | XMS_ITS | Encounter Summary ---
Author Organization Health Address [address] [place] [address] Care Team Providers Care Lard Bleacher Name Role Phone Edgar Fournier MD Primary Care Provider [phone] Maile Valles RN Unavailable Unavail able Jack Ordoñez MD Unavailable [phone] Source Comments This information has been [...] release of HIV test results or diagnoses. [id number] Encounter Details Date Type Department Care Team (Late st Contact Info) Description 05/07/2018 Social Work [facility] [address] [place] [address] Chiquita Rosado, RADHA [address] [place] [address] Social History Tobacco Use Types Packs/Day Years [...] as of this encounter Progress Notes * RADHA Kline - 05/07/2018 11:59 PM EDT Social Work Note- Outpatient Liver Transplant Patient is status post liver transplant on 10/08/17. Provided patient with gas card, $100. Patient has $100 remaining. No other needs identified. SW to follow. RADHA Kline, SUPPLY SERVICE WORKER [phone] documented in this encounter Plan of Treatment Upcoming Encounters Date Type Department Care Team (Late st Contact Info) Description 07/15/2024 9:00 AM EST Hospital [facility] Interventional Radiology [address] [place] [phone] Herve Carrillo MD [address] [facility] [address] [place] [address] documented as of this encounter Visit Diagnoses Not on filedocumented in this encounter Additional Health Concerns Assessment Noted Time PHQ-9 Depression Total Score: 0 12/06/19 18 3:00 PM EDT documented as of this encounter Care Teams Lard Bleacher Relationship Specialty Start Date End Date Edgar Fournier MD [address] [place] [address] [place] [address] PCP - General 08/18/17 06/23/21 Maile Valles, RN Txp Post Coordinator Transplant Hepatology 11/07/17 Jack Ordoñez MD [address] [place] [phone] Consulting Physician Transplant Hepatology 01/05/18 documented as of this encounter
--- OUTSIDE RECORDS SUMMARY | 2024-07-12 12:51 | XMS_ITS | Encounter Summary ---
Author Organization Health Address [facility] [place] [address] Care Team Providers Care Rubber Tile Floor Layer Name Role Phone Edgar Fournier MD Primary Care Provider [phone] Maile Valles RN Unavailable Unavail able Jack Ordoñez MD Unavailable [phone] Source Comments This information has been [...] release of HIV test results or diagnoses. [id number] Encounter Details Date Type Department Care Team (Late st Contact Info) Description 04/25/2018 Telephone [facility] Liver Transplant at Outpatient [address] [address] Connie Waterman, JANA Social History Tobacco Use Types Packs/Day [...] Telephone Encounter - Maile Valles RN - 04/26/2018 8:48 AM EDT Patient went to local ED last night. Cardiac work up negative, but still c/o of intermittent chest pain. Patient c/o rash of feet/ankles, elevated BP, and headache. Patient recently transitioned to Envarsus from Cyclosporine. Patient has f/u on 05/07, offered to reschedule for 04/30. Patient agreed, but then continued to listother varying symptoms; blood in urine, hernia pain. Patient also has rising LFTs. Advised patient to come to [facility] ED for assessment. * Telephone Encounter - Maile Valles RN - 04/26/2018 8:01 AM EDT Appears patient did not come to [facility] ED last night. Attempted to contact patient to f/u. No answer,unable to leave message. * Telephone Encounter - Connie Lopez RN - 04/25/2018 9:22 PM EDT Patient called and states he is having an allergic reaction to something. Said he has blistering and numbness on his lower extremities. He also complained of chest pain and increased fatigue. He denies SOB and said this has been progressive for several days. He was instructed to come to the ER for e valuation. documented in this encounter Plan of Treatment Upcoming Encounters Date Type Department Care Team (Late st Contact Info) Description 07/15/2024 9:00 AM EST Hospital Encounter [facility] Interventional Radiology [address] [place] [phone] Herve Carrillo MD [address] [place] [facility] [address] [place] [address] documented as of this encounter Visit Diagnoses Not on filedocumented in this encounter Additional Health Concerns Assessment Noted Time PHQ-9 Depression Total Score: 0 12/06/19 18 3:00 PM EDT documented as of this encounter Care Teams Rubber Tile Floor Layer Relationship Specialty Start Date End Date Edgar Fournier MD [address] [place] [address] PCP - General 08/18/17 06/23/21 Maile Valles, JANA Txp Post Coordinator Transplant Hepatology 11/07/17 Jack Ordoñez MD [address] [place] [address] Consulting Physician Transplant Hepatology 01/05/18 documented as of this encounter
--- OUTSIDE RECORDS SUMMARY | 2024-07-12 12:51 | XMS_ITS | Encounter Summary ---
Author Organization Health Address [facility] [place] [address] Care Team Providers Care Manager Of Corporate Name Role Phone Edgar Fournier MD Primary Care Provider [phone] Maile Valles RN Unavailable Unavail able Jack Ordoñez MD Unavailable [phone] Source Comments This information has been [...] release of HIV test results or diagnoses. [id number] Encounter Details Date Type Department Care Team (Late st Contact Info) Description 05/04/2018 Telephone [facility] Liver Transplant at Outpatient [address] [address] Latrice Brice MA Social History [...] Telephone Encounter - Latrice Brice MA - 05/04/2018 1:29 PM EDT Regarding having Aiden get standing labs drawn before follow up appointment 05-07-18 no answer no voice mail. Need to address with Aiden. documented in this encounter Plan of Treatment Upcoming Encounters Date Type Department Care Team (Late st Contact Info) Description 07/15/2024 9:00 AM EST Hospital Encounter [facility] Interventional Radiology [address] [place] [phone] Herve Carrillo MD [address] [facility] 3[address] [place] [phone] documented as of this encounter Visit Diagnoses Not on filedocumented in this encounter Additional Health Concerns Assessment Noted Time PHQ-9 Depression Total Score: 0 12/06/19 18 3:00 PM EDT documented as of this encounter Care Teams Manager Of Corporate Relationship Specialty Start Date End Date Edgar Fournier MD [address] [place] [address] [place] [address] PCP - General 08/18/17 06/23/21 Maile Valles, JANA Txp Post Coordinator Transplant Hepatology 11/07/17 Jack Ordoñez MD [address] [place] [phone] Consulting Physician Transplant Hepatology 01/05/18 documented as of this encounter
--- OUTSIDE RECORDS SUMMARY | 2024-07-12 12:51 | XMS_ITS | Encounter Summary ---
Author Organization Health Address [facility] [place] [address] Care Team Providers Care Inspector Hairspring Truing Name Role Phone Edgar Fournier MD Primary Care Provider [phone] Maile Valles RN Unavailable Unavail able Jack Ordoñez MD Unavailable [phone] Source Comments This information has been [...] release of HIV test results or diagnoses. [id number] Encounter Details Date Type Department Care Team (Late st Contact Info) Description 04/23/2018 Chart Note [facility] [phone] Latrice Brice MA Social History Tobacco Use [...] [facility] Interventional Radiology [address] [place] [address] Herve Carrillo MD [address] [facility] [address] [place] [address] documented as of this encounter Procedures Procedure Name Priority Date/Time Associated Diagnosis Comments TACROLIMUS LEVEL Routine 04/19/2018 9:50 AM EDT documented in this encounter Results * (ABNORMAL) Tacrolimus level (04/19/2018 9:50 AM EDT) Tacrolimus by Immunoassay -- Tacrolimus Lvl 3.4(A) 6 - 15 ng/mL Whole blood specimen (specimen) us Historical Provider LAB BLOOD ORDERABLES Yoselin l Result documented in this encounter Visit Diagnoses Not on filedocumented in this encounter Additional Health Concerns Assessment Noted Time PHQ-9 Depression Total Score: 0 12/06/19 18 3:00 PM EDT documented as of this encounter Care Teams Inspector Hairspring Truing Relationship Specialty Start Date End Date Edgar Fournier MD [address] [place] [address] [place] [address] PCP - General 08/18/17 06/23/21 Maile Valles, JANA Txp Post Coordinator Transplant Hepatology 11/07/17 Jack Ordoñez MD [address] [place] [phone] Consulting Physician Transplant Hepatology 01/05/18 documented as of this encounter
--- OUTSIDE RECORDS SUMMARY | 2024-07-12 12:51 | XMS_ITS | Encounter Summary ---
Author Organization [facility] Address [address] [place] [address] Care Team Providers Care Buggyman Name Role Phone Edgar Fournier MD Primary Care Provider [phone] Maile Valles RN Unavailable Unavail able Jack Ordoñez MD Unavailable [phone] Source Comments This information has been [...] release of HIV test results or diagnoses. [id number] Reason for Visit * Reason Onset Date Comments Results 05/25/2018 Encounter Details Date Type Department Care Team (Late st Contact Info) Description 05/25/2018 Telephone [facility] Liver Transplant at Outpatient [address] [address] Maile Valles, JANA Results Social [...] Telephone Encounter - Maile Valles RN - 05/29/2018 1:40 PM EDT Reviewed results and recommendations with the patient who verbalized understanding and is comfortable with the plan of care. * Telephone Encounter - Maile Valles RN - 05/29/2018 8:[address] Ordoñez: No changes. Mostly stable. * Telephone Encounter - Maile Valles RN - 05/28/2018 11:28 AM EDT FK 2.7 on 2 mg daily of Envarsus. Patient called c/o some tingling in legs and blood in urine (sees urologist). Will route to Txp Provider for review and recommendations. * Telephone Encounter - Maile Valles RN - 05/25/2018 10:08 AM EDT Lab results from 05/24/18 reviewed. Cr 1.9 Alk phos up slightly to 164 (135). AST/ALT stable. FK pending. documented in this encounter Plan of Treatment Upcoming Encounters Date Type Department Care Team (Late st Contact Info) Description 07/15/2024 9:00 AM EST Hospital Encounter [facility] Interventional Radiology [address] [place] [phone] Herve Carrillo [facility] [address] [facility] [place] [address] documented as of this encounter Visit Diagnoses Not on filedocumented in this encounter Additional Health Concerns Assessment Noted Time PHQ-9 Depression Total Score: 0 12/06/19 18 3:00 PM EDT documented as of this encounter Care Teams Buggyman Relationship Specialty Start Date End Date Edgar Fournier MD [address] [place] [address] [place] [address] PCP - General 08/18/17 06/23/21 Maile Valles, RN Txp Post Coordinator Transplant Hepatology 11/07/17 Jack Ordoñez MD [address] [place] [phone] Consulting Physician Transplant Hepatology 01/05/18 documented as of this encounter
--- OUTSIDE RECORDS SUMMARY | 2024-07-12 12:51 | XMS_ITS | Encounter Summary ---
Author Organization [facility] Address [address] [place] [id number] Care Team Providers Care Side Door Man Name Role Phone Edgar Fournier MD Primary Care Provider [phone] Maile Valles RN Unavailable Unavail able Jack Ordoñez MD Unavailable [phone] Source Comments This information has been [...] release of HIV test results or diagnoses. [id number] Reason for Referral * Diagnostic Imaging (Routine) - Closed Specialty Diagnoses / Procedures Referred By Contac t Referred To Contact Diagnoses Unstable angina pectoris ([facility]) Abnormal stress test S/P liver transplant ([facility]) Procedures Cath Case Request: Left and Right Heart Cathabnormal stress testchest pain PT LIVES >1 HOUR AWAY; HAS NOT EATEN SINCE 12 AM DAY PRIORs/p liver transplant IN R & L HRT CATH WINJX HRT ART& L VENTR IMG Marcelino Haynes Jr., MD Phone: tel: fax: Marcelino Haynes Jr., MD Phone: tel: fax: Referral ID Status Reason Start Date Expiration Date Visits Re quested Visits Authorized [id number] Closed 06/04/2018 12/01/2018 1 1 Reason for Visit * Reason Comments New Patient Visit/ Consultation abnormal stress test * Physician/ANUSHA (Routine) - Closed Specialty Diagnoses / Procedures Referred By Contac t Referred To Contact [facility] Cardiology Diagnoses Abnormal stress test S/P liver transplant ([facility]) [facility] [address] [place] [address] Phone: tel: fax: Referral ID Status Reason Start Date Expiration Date Visits Re quested Visits Authorized [id number] Closed 05/11/2018 11/07/2018 1 1 Encounter Details Date Type Department Care Team (Late st Contact Info) Description 06/04/2018 11:30 AM EDT Office Visit [facility] [address] [facility] [address] [place] [address] Jack Ordoñez MD [address] [facility] [place] [id number] Marcelino Haynes Jr., MD [address] [facility] [place] [address] Unstable angina pectoris ([facility]) (Primary Dx); Abnormal stress test; S/P liver transplant ([facility]) Social History Tobacco Use Types Packs/Day Years [...] Sign Reading Time Taken Comments Blood Pressure 165/91 06/04/2018 11:14 AM EDT Pulse 76 06/04/2018 11:14 AM EDT Temperature - - Respiratory Rate - - Oxygen Saturation 98% 06/04/2018 11: 14 AM EDT Inhaled Oxygen Concentration 98% 11:14 AM EDT Weight 129.3 kg (285 lb 0.2 oz) 018 11:14 AM EDT Height 170.2 cm (5' 7 ) 06/04/2018 11:1 4 AM EDT Body Mass Index 44.64 06/04/2018 11:14 AM EDT documented in this encounter Patient Instructions * Patient Instructions* Connie Carroll RN - 06/04/2018 11:30 AM EDT We will schedule your angiogram today before you leave the office. Outpatient Instructions for: Right/Left Heart Catheterization 1. Your heart catheterization has been set up for: 2. Arrival Time: Diagnostic Center: Diagnostic Center on the 2nd floor of [facility] The hospital will need to prepare you before the procedure. This may take an hour or two before theprocedure will start. An IV line will be started. You may need lab work drawn and an EKG done the day of the procedure. Wear loose comfortable clothes. Someone will need to drive you home from the hospital 3. Diet: Do not eat or drink after midnight 4. You may take your morning medication with a sip of water. If you are diabetic, take 1/2 of your regular morning insulin dosage. and DO NOT take the followingmedications 48 hours after the procedure: Gluophage, Metformin, Glucovance, Avandamet, Combination 5. . DO NOT STOP Aspirin. 6. Please notify the nurse if you have an allergy to contrast dye, IV dye, iodine or an allergic reaction to shellfish. 7. Prior to the heart catheterization, the following tests will be drawn on the day of the test: CBC, Renal Profile and PT / INR Additional Instructions: Call Cnonie at [phone] with questions. If you have any questions, please call your RN Nurse Coordinator. documented in this encounter Progress Notes * Marcelino Haynes Jr., MD - 06/04/2018 11:30 AM EDT Subjective: Patient ID: Aiden Stauffer is a 43 y.o. male. Chief Complaint: HPI Mr. 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 He presents with abnormal stress test. Approximately one month ago, he had an episode of severe fatigue while shopping at [employer] and had to call his mother to help with groceries. He subsequently had several episodes of chest pain which occur once weekly. He ultimately went to [facility] with chest pain were he had labsdone which were normal. These occur typically while lying in bed. Prior to his liver transplant, hehad cardiac workup with Dr. Rosales in [place] (records not available). He additionally reports sleeping more now and snoring. His history is complicated by a massive GI bleed in 2017 when he was ultimately transfused 31 unitsof blood by his report. He was treated at for this episode. He denies any bleeding since this time. He takes a daily aspirin. Nuclear stress (05/07/18): Abnormal study with apical to basal inferior [...] abnormal: 4-8, severely abnormal: greater than 8). TTE (10/10/17): - Left ventricle: The cavity size was normal. Wall thickness was ?normal. Systolic function was normal. The estimated ejection ?fraction was in the range of 55% to 60%. Wall motion was normal; ?there were no regional wall motion abnormalities. The tissue ?Doppler parameters were abnormal. The study is not technically ?sufficient to allow evaluation of LV diastolic function. Septal ?flattening in diastole concerning for RV pressure/volume overload. - Left atrium: No right to left shunt with contrast. - Right ventricle: The cavity size was dilated. Systolic function ?was normal by visual assessment. TAPSE: 2.5cm.Tricuspid annular ?systolic velocity: 15cm/s. - Right atrium: The atrium was dilated. - Pulmonary arteries: Systolic pressure could not be accurately ?estimated but it is elevated at at least 42 m mHg + the RA ?pressure. - Inferior vena cava: Poorly visualized. - Pericardium, extracardiac: A trivial pericardial effusion was ?identified. Extensive review of symptoms reviewed/scanned into record. Histories: He has a past medical history of Acute pancreatitis; Ascites; Diabetes mellitus (CMS Dx); Esophageal varices with bleeding (CMS Dx); GERD (gastroesophageal reflux disease); Hepatic encephalopathy (CMS Dx); Hypertension; Liver cirrhosis secondary to SAL (CMS Dx); and Vitamin D deficiency. He has a past surgical history that includes TIPS procedure (10/2016); TIPS Revision (04/2017); andLiver transplantation (N/A, 10/08/2017). His family history includes Diabetes in his sister. He reports that he has never smoked. He has never used smokeless tobacco. He reports that he does not drink alcohol or use drugs. ROS: ROS Allergies: Codeine Medications: Outpatient Encounter Prescriptions as of 06/04/2018 Medication Sig Dispense Refill ??? amLODIPine (NORVASC) 10 MG tablet Take 10 mg by mouth daily. ??? aspirin 81 MG chewable tablet Chew 1 tablet (81 mg total) by mouth daily with breakfast. 30 tablet 5 ??? blood sugar diagnostic [facility] Use to test blood sugar up to 4 times a day. Diagnosis for use: E 9.65. For use with One Touch Verio meters. 150 strip 5 ??? blood-glucose meter (ONETOUCH VERIO SYSTEM) [facility] Use as instructed. 1 each 0 ??? carvedilol (COREG) 25 MG tablet Take 2 tablets (50 mg total) by mouth 2 times a day with meals.120 tablet 5 ??? cloNIDine HCl (CATAPRES) 0.1 MG tablet Take 0.1 mg by mouth if needed. ??? diazePAM (VALIUM) 10 MG tablet ??? doxazosin (CARDURA) 2 MG tablet Take 8 mg by mouth at bedtime. ??? doxazosin (CARDURA) 8 MG tablet ??? entecavir (BARACLUDE) 1 MG tablet Take 1 tablet (1 mg total) by mouth daily. 30 tablet 11 ??? EPITOL 200 mg tablet ??? ergocalciferol (VITAMIN D2) 50,000 unit capsule Take 50,000 Units by mouth once a week. ??? esomeprazole (NEXIUM) 40 MG capsule ??? gabapentin (NEURONTIN) 600 MG tablet Take 1,200 mg by mouth 3 times a day. ??? gabapentin (NEURONTIN) 800 MG tablet ??? insulin glulisine U-100 (APIDRA U-100 INSULIN) [...] PM. ) 15 mL 5 ??? lancets ([employer] LANCETS) 33 gauge Misc Use 1 strip as directed 4 times daily before meals and at bedtime. 150 each 5 ??? mycophenolate (CELLCEPT) 250 mg capsule Take 3 capsules (750 mg total) by mouth 2 times a day. 180 capsule 5 ??? NIFEdipine (ADALAT CC) 90 MG 24 hr tablet ??? NIFEdipine (PROCARDIA-XL) 90 MG (OSM) 24 hr tablet ??? ondansetron (ZOFRAN-ODT) 4 MG disintegrating tablet ??? pen needle, diabetic 32 gauge x 5/32 Ndle Use as directed to inject insulin 4 times daily. 150each 5 ??? pen needle, diabetic 32 gauge x 5/32 Ndle For use with insulin pen. Use as instructed. 150 each 5 ??? tacrolimus (ENVARSUS XR) 1 mg Tb24 Take 2 mg by mouth daily. 60 tablet 5 No facility-administered encounter medications on file as of 06/04/2018. Objective: Blood pressure (!) 165/91, pulse 76, height 5' 7 (1.702 m), weight (!) 285 lb 0.2 oz (129.3 kg), SpO2 98 %. Physical Exam Gen: Well nourished; Alert [...] and with normal bowel sounds. Lower extremities: trace pedal edema and normal pulses bilaterally. Upper extremities: equal pulses and normal form and function. Carotids: no bruits. Neurologic:Cranial nerves intact; Sensation normal; no localizing signs Lab Review: CBC: Lab Results Component Value Date HGB 9.4 (A) 05/24/2018 HGB 9.4 (A) 05/24/2018 HCT 26.5 (A) 05/24/2018 HCT 26.5 (A) 05/24/2018 PLT 222 05/24/2018 WBC 3.8 05/24/2018 WBC 3.8 05/24/2018 MCV 90.1 05/24/2018 MCV 90.1 05/24/2018 MCH 32 05/24/2018 MCH 32 05/24/2018 RENAL: Lab Results Component Value Date NA 141 05/24/2018 NA 141 05/24/2018 K 5 05/24/2018 K 5 05/24/2018 CL 107 05/24/2018 CL 107 05/24/2018 CO2 29 (A) 05/24/2018 BUN 29 (A) 05/24/2018 BUN 29 (A) 05/24/2018 CREATININE 1.9 05/24/2018 CREATININE 1.9 (A) 05/24/2018 GLUCOSE 159 05/24/2018 GLUCOSE 159 05/24/2018 PHOS 3 05/24/2018 ALBUMIN 3.1 (A) 05/24/2018 ALBUMIN 3.1 05/24/2018 CALCIUM 8.6 (A) 05/24/2018 CALCIUM 8.6 (A) 05/24/2018 LIVER: Lab Results Component Value Date AST 15 05/24/2018 AST 15 05/24/2018 ALT 25 05/24/2018 ALT 25 05/24/2018 BILITOT 0.2 05/24/2018 BILITOT 0.2 05/24/2018 ALBUMIN 3.1 (A) 05/24/2018 ALBUMIN 3.1 05/24/2018 ALKPHOS 164 05/24/2018 ALKPHOS 164 05/24/2018 LIPIDS: Lab Results Component Value Date CHOLTOT 168 01/02/2018 LDL 83 01/02/2018 HDL 30 (L) 01/02/2018 TRIG 274 (H) 01/02/2018 THYROID: Lab Results Component Value Date TSH 2.02 12/20/2017 FREET4 1.03 10/20/2017 DIABETES: Lab Results Component Value Date HGBA1C 5.3 01/02/2018 GLUCOSE 159 05/24/2018 GLUCOSE 159 05/24/2018 CREATININE 1.9 05/24/2018 CREATININE 1.9 (A) 05/24/2018 Body mass index is 44.64 kg/m??. @[id number]@ EKG Interpretation: No EKG done at this visit Assessment: Mr. 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 He presents with abnormal stress test. Plan: 1. New onset chest pain with severe fatigue and inferior wall defect by recent nuclear stress test.I discussed my recommend to have a coronary angiogram at this point. He will need very careful discussion of risk of dual antiplatelet therapy given history of massive GI bleed. Also with renal failure, will need pre-hydration prior angiogram. documented in this encounter Plan of Treatment Upcoming Encounters Date Type Department Care Team (Late st Contact Info) Description 07/15/2024 9:00 AM EST Hospital Encounter [facility] Interventional Radiology [address] [place] [phone] Herve Carrillo MD [address] [facility] [address] [facility] [place] [address] documented as of this encounter Visit Diagnoses Diagnosis Unstable angina pectoris (CMS-HCC)- Primary Intermediate coronary syndrome Abnormal stress test Other nonspecific abnormal cardiovascular system function study S/P liver transplant (CMS-HCC) documented in this encounter Additional Health Concerns Assessment Noted Time PHQ-9 Depression Total Score: 0 12/06/19 18 3:00 PM EDT documented as of this encounter Care Teams Side Door Man Relationship Specialty Start Date End Date Edgar Fournier MD [address] [place] [address] [place] [address] PCP - General 08/18/17 06/23/21 Maile Valles, JANA Txp Post Coordinator Transplant Hepatology 11/07/17 Jack Ordoñez MD [address] [place] [phone] Consulting Physician Transplant Hepatology 01/05/18 documented as of this encounter
--- OUTSIDE RECORDS SUMMARY | 2024-07-12 12:51 | XMS_ITS | Encounter Summary ---
Author Organization [facility] Address [facility] [place] [address] Care Team Providers Care Clinical Tech Name Role Phone Edgar Fournier MD Primary Care Provider [phone] Maile Valles RN Unavailable Unavail able Jack Ordoñez MD Unavailable [phone] Source Comments This information has been [...] release of HIV test results or diagnoses. [id number] Reason for Visit * Reason Comments Medication Problem Shortness of Breath Encounter Details Date Type Department Care Team (Late st Contact Info) Description 04/26/2018 6:11 PM EDT - 04/27/2018 1:47 AM EDT Emergency [facility] Emergency Department [address] [place] [address] Fluid retention (Primary Dx) Discharge Disposition: Home or Self [...] Sign Reading Time Taken Comments Blood Pressure 144/77 04/27/2018 1:27 AM EDT Pulse 87 04/27/2018 1:27 AM EDT Temperature 37.2 ??C (99 ??F) 04/26/2018 9:33 PM EDT Respiratory Rate 18 04/27/2018 1:27 AM EDT Oxygen Saturation 98% 04/27/2018 1:27 AM EDT Inhaled Oxygen Concentration 98% 04/27/2018 1 :27 AM EDT Weight - - Height - - Body Mass Index - - documented in this encounter Discharge Instructions * Discharge Instructions* Ronald Christina MD - 04/27/2018 1:25 AM EDT Dear Aiden Stauffer, You were seen for Medication Problem and Shortness of Breath . Your workup today revealed: Liver levels felt important abnormalities, pancreas levels without important abnormalities, normal electrolytes, blood levels but did not show you have been bleeding large amounts. An ultrasound of her abdomen showed no significant ascites. Enzymes and an EKG and a chest x-ray did not show a cardiac or lung reason for your chest pain. The transplant surgery team came and saw you in the emergency room and deemed you appropriate for discharge to home. We gave you Lasix in the emergency department, and you are getting a prescription for 40mg PO of Lasix that he should take every day for the next 5 days. Please follow-up with transplant surgery and your primary care team. Return to the Emergency Department if: - You have considerable weight gain - You begin to throw up, cough, or defecate [place] - You develop a fever (greater than 101 F) - You have chest pain, shortness of breath, abdominal pain, or uncontrollable vomiting - You are unable to eat or drink - You pass out - You have difficulty moving your arms or legs - You have new numbness - You have difficulty speaking or slurred speech - You have an injury you believe requires medical attention - Or you have any other concerns It was a pleasure to take care of you. documented in this encounter Medications at Time of Discharge aspirin 81 MG chewable tablet Chew 1 tablet (81 mg total) by mouth daily with breakfast. 30 tablet 5 8 NIFEdipine (PROCARDIA-XL) 90 MG (OSM) 24 hr tablet Take 1 tablet (90 mg total) by mouth if needed. 8 furosemide (LASIX) 40 MG tablet Take 1 tablet (40 mg total) by mouth daily for 5 days. 5 tablet 8 05/02/20 18 blood sugar diagnostic Strp Use to test [...] meals. 120 tablet 5 8 03/12/20 20 cycloSPORINE modified (NEORAL/GENGRAF) 25 MG capsuleIndications: Prevention of Liver Transplant Rejection Take 4 capsules (100 mg total) by mouth 2 times a day. Indications: Prevention of Liver Transplant Rejection 480 capsule 5 8 05/07/20 18 diazePAM (VALIUM) 10 MG tablet 8 09/13/19 19 doxazosin (CARDURA) 2 MG tablet Take 8 mg by mouth at bedtime. 09/13/19 19 entecavir (BARACLUDE) 1 MG tablet Take 1 tablet (1 mg total) by mouth daily. 30 tablet 11 8 10/27/19 19 EPITOL 200 mg tablet 8 09/13/19 19 gabapentin (NEURONTIN) 600 MG tablet Take 800 mg by mouth 3 times a day. Taking 800mg in the AM, 1200mg at 6pm, and then 800mg at 9pm 01/18/20 19 insulin lispro (HUMALOG KWIKPEN INSULIN) 100 unit/mL InPn Administer insulin with meals per sliding scale: glucose 150-199=2 u, 200-249=4 u, 250-299=7 u, 300-349=10 u, >349= 12 units 15 mL 8 05/07/20 18 insulin NPH isoph U-100 human (HUMULIN N NPH INSULIN KWIKPEN) 100 unit/mL (3 mL) InPnIndications:S/P liver transplant ([facility]),Hyperglyc emia Inject subcutaneously 50 units in the AM and 17 units in the PM. 15 mL 8 01/18/20 19 lancets (ONETOUCH DELICA LANCETS) 33 gauge Misc Use 1 strip as directed 4 times daily before meals and at bedtime. 150 each 8 03/18/20 22 mycophenolate (CELLCEPT) 250 mg capsuleIndications: S/P liver transplant ([facility]),Immunosup pression ([facility]) Take 3 capsules (750 mg total) by mouth 2 times a day. 180 capsule 8 11/27/19 19 NIFEdipine (ADALAT CC) 90 MG 24 hr tablet Take 90 mg by mouth daily. 05/07/20 18 ondansetron (ZOFRAN-ODT) 4 MG disintegrating tablet Take [...] 11/11/19 20 tacrolimus (ENVARSUS XR) 1 mg [id number]:S/P liver transplant ([facility]),Immunosup pression ([facility]) Take 2 mg by mouth daily. 60 tablet 5 8 10/17/19 19 valGANciclovir (VALCYTE) 450 mg tabletIndications:I mmunosuppression (CMS-HCC) Take 2 tablets (900 mg total) by mouth daily. 60 tablet 3 8 05/07/20 18 documented as of this encounter Progress Notes * Ronald Christina MD - 04/26/2018 5:51 PM EDT [facility] ED Note Aiden Stauffer is a 43 y.o. male patient who presented to the Emergency Department. This patient was initially seen by an off-going provider. Please see that provider's note for details regarding the initial history, physical exam and ED course. Care of this patient was signed out to me by Dr. Binh Cummins. ED Course and MDM Aiden Satuffer is a 43 y.o. 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 The patient was evaluated by myself and the ED Attending Physician. A thorough history and physical was performed. My evaluation of the patient showed: A nontoxic-appearing gentleman with stable vitals complaining of mild chest pain, abdominal distention, lethargy. Planing of mild nausea. Abdomen is globular but benign, respiratory distention, no guarding, no tenderness to palpation. Ultrasound evaluation of his abdomen did not reveal any pocket of ascites sufficient to warrant tapping. EKG normal sinus rhythm without tachycardia At this time, the following is pending: - CBC with differential - Lactic acid - Magnesium - LFTs - Renal panel - Lipase -Phosphorus - BNP -No known - Chest x-ray Further MDM: (please see off going provider's note) ED Course as of Apr 27 158 Bobbi Apr 26, [id number] Lipase is mildly elevated, alk phos mildly elevated, however these values do not clearly represent a pathological process that accounts for the patient's presentation [BB] 2141 Shows moderate blood consistent with the patient's reported history of hematuria [BB] 2142 Will call Transplant once labs have resulted [BB] 2216 CBC unremarkable [BB] 2216 Lab work has been generally unrevealing for cause for patient's complaints. Will contact transplant surgery [BB] 2236 Transplant surgery, who will come down and see patient [BB] MonApr 27, 2018 0132 Spoke with transplant surgery, they have given the patient his outpatient immunosuppressive regimen antihypertensive medications. We'll give him 60 of IV Lasix here. 40 of by mouth Lasix next 5 days. To follow up with transplant surgery. [BB] ED Course User Index [BB] Ronald Christina MD Appears that this patient was having increased fluid retention or setting of post hepatic transplant and immunosuppression. Given this patient's benign abdomen, negative cardiac workup, laboratory results without gross abnormalities, and assessment by his transplant surgery team, the patient is considered safe and appropriate for discharge. The patient endorses understanding and agreement with this plan Summary of Treatment in ED: EKG Indication: Chest pain Rate: 75 Rhythm: Sinus Interval: NE 154, QRS 102, QTC 437 Chauvin: 51 (normal) ST Segment Change: none Comparison to prior EKG: PVC note EKG on October not present X-ray Chest PA and Lateral Final Result IMPRESSION: Clear lungs. Borderline cardiomegaly. Approved by Reginaldo Ceballos on 04/26/2018 8:08 PM EDT I have personally reviewed the images and I agree with this report. Report Verified by: EDWINA COLLAZO at 04/26/2018 8:17 PM EDT Labs Reviewed RENAL FUNCTION PANEL W/EGFR - Abnormal; Notable for the following: Result Value BUN 31 (*) Creatinine 1.93 (*) Glucose 128 (*) All other components within normal limits HEPATIC FUNCTION PANEL - Abnormal; Notable for the following: Alkaline Phosphatase 156 (*) All other components within normal limits CBC - Abnormal; Notable for the following: WBC 3.1 (*) RBC 2.86 (*) Hemoglobin 9.5 (*) Hematocrit 26.8 (*) MCH 33.2 (*) MPV 7.0 (*) All other components within normal limits Narrative: PAGED TRENA ESCAMILLA THROUGH THE [employer] SYSTEM AT 2418 DIFFERENTIAL - Abnormal; Notable for the following: Monocytes Relative 14.3 (*) Lymphocytes Absolute 642 (*) All other components within normal limits LIPASE - Abnormal; Notable for the following: Lipase 139 (*) All other components within normal limits URINALYSIS-MACROSCOPIC W/REFLEX TO MICROSCOPIC - Abnormal; Notable for the following: Protein, UA >=300 mg/dL (*) Glucose, UA 100 mg/dL (*) Blood, UA Moderate (*) All other components within normal limits URINALYSIS, MICROSCOPIC - Abnormal; Notable for the following: RBC, UA 7 (*) Bacteria, UA Rare (*) All other components within normal limits POC GLU MONITORING DEVICE - Abnormal; Notable for the following: POC Glucose Monitoring Device 196 (*) All other components within normal limits TROPONIN I B NATRIURETIC PEPTIDE MAGNESIUM PHOSPHORUS LACTIC ACID, VENOUS, WHOLE BLOOD, [facility] TACROLIMUS LEVEL Medications carvedilol (COREG) tablet 50 mg (not administered) proMETHazine (PHENERGAN) injection 12.5 mg (12.5 mg Intravenous Given 04/26/182112) furosemide (LASIX) injection 60 mg (60 mg Intravenous Given 04/27/18115) gabapentin (NEURONTIN) capsule 1,200 mg (1,200 mg Oral Given 04/27/18115) mycophenolate (CELLCEPT) capsule 750 mg (750 mg Oral Given 04/27/18115) proMETHazine (PHENERGAN) injection 12.5 mg (12.5 mg Intravenous Given 04/27/18136) Procedures Impression 1. Fluid retention Plan Risks, benefits, and alternatives were discussed. At this time the patient has been deemed safe fordischarge. My customary discharge instructions including strict return precautions for worsening ornew symptoms have been communicated. Cosigned by Kip Turner MD at 04/27/2018 2:58 AM EDT * Kip Turner MD - 04/26/2018 5:51 PM EDT ED Attending Attestation Note Date of service: 04/26/2018 This patient was seen by the resident physician. I have seen and examined the patient, agree with the workup, evaluation, management and diagnosis. The care plan has been discussed and I concur. I have reviewed the patient's EKG and agree with the resident's interpretation. My assessment reveals a 43 y.o. male who presents for a rash and shortness of breath. The patient is status post liver transplant 6-7 months ago. He states that initially he was placed on Prograf butthere was then taken off of it. He reports that he was restarted on it 2 weeks ago. He started having shortness of breath about one week ago. He's been having progressive dyspnea on exertion since that time. He is noted a rash on his legs over the last 2 days. On exam the patient is alert and oriented. He is in no acute distress. His lungs are clear throughout. He has a petechial rash on his right lower leg. On his left lower leg he has larger areas of erythema that do not brit. documented in this encounter H&P Notes * Edgar Cummins MD - 04/26/2018 5:51 PM EDT [facility] ED Note Date of service: 04/26/2018 Reason for Visit: Medication Problem and Shortness of Breath Patient History HPI: Aiden Stauffer is a 43 y.o. male with PMHx of SAL cirrhosis (s/p liver transplant in 10/01), HTN, DM who presents with chief complaint of Medication Problem and Shortness of Breath Patient reports that after transplantation he was put on prograf and had a reaction (tremor, AMS). After that he was switched to cyclosporine. He reports doing well on cyclosporine until about a month ago, when he began retaining fluid and had a worsening of kidney function. He was switched back toprograf. Since switching to Prograf, he has had a worsening of his fatigue. In the last few days hehas also developed a bilateral lower leg rash. He reports weight gain of about 20lbs in the last month, and subjectively feels like he has more fluid. He reports intermittent nausea. No vomiting, diarrhea or constipation. In terms of the chest pain, the patient reports that this has been going on for a few months. The pain is usually left sided, sharp/pressure type pain. The pain does not radiate to either arm or to his neck. Occasionally associated with nausea and diaphoresis, but not always. Pt cannot think of anyaggravating or alleviating factors. Patient presented to [facility], and had a negative chest pain work up last night. Patient also complains of shortness of breath, worsening in the last month. Worse on exertion. Past Medical History: Diagnosis Date ??? Acute pancreatitis ??? Ascites ??? Diabetes mellitus (CMS Dx) ??? Esophageal varices with bleeding (CMS Dx) ??? GERD (gastroesophageal reflux disease) ??? Hepatic encephalopathy (CMS Dx) ??? Hypertension ??? 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 Vitamin D deficiency Past Surgical History: Procedure Laterality Date ??? LIVER TRANSPLANTATION N/A 10/08/2017 Procedure: TRANSPLANT LIVER; Surgeon: Ami Rossi MD; Location: [facility]; Service: Transplant; Laterality: N/A; ??? TIPS PROCEDURE [...] with One Touch Verio meters. BLOOD-GLUCOSE METER ([employer] VERIO SYSTEM) MISC Use as instructed. CARVEDILOL (COREG) 25 MG TABLET Take 2 tablets (50 mg total) by mouth 2 times a day with meals. CYCLOSPORINE MODIFIED (NEORAL/GENGRAF) 25 MG CAPSULE Take 4 capsules (100 mg total) by mouth 2 times a day. Indications: Prevention of Liver Transplant Rejection DOXAZOSIN (CARDURA) 2 MG TABLET Take 2 mg by mouth at bedtime. ENTECAVIR (BARACLUDE) 1 MG TABLET Take 1 tablet (1 mg total) by mouth daily. GABAPENTIN (NEURONTIN) 600 MG TABLET Take 1,200 mg by mouth 3 times a day. INSULIN LISPRO (HUMALOG KWIKPEN INSULIN) 100 UNIT/ML INPN Administer insulin with meals per slidingscale: glucose 150-199=2 u, 200-249=4 u, 250-299=7 u, 300- 349=10 u, >349= 12 units INSULIN NPH ISOPH U-100 HUMAN (HUMULIN N NPH INSULIN KWIKPEN) 100 UNIT/ML (3 ML) INPN Inject subcutaneously 50 units in the AM and 17 units in the PM. LANCETS (ALTILIATOUCH DELICA LANCETS) 33 GAUGE MIS Use 1 strip as directed 4 times daily before meals and at bedtime. MYCOPHENOLATE (CELLCEPT) 250 MG CAPSULE Take 3 capsules (750 mg total) by mouth 2 times a day. NIFEDIPINE (ADALAT CC) 90 MG 24 HR TABLET Take 90 mg by mouth daily. PEN NEEDLE, DIABETIC 32 GAUGE X 5/32 NDLE Use as directed to inject insulin 4 times daily. PEN NEEDLE, DIABETIC 32 GAUGE X 5/32 NDLE For use with insulin pen. Use as instructed. TACROLIMUS (ENVARSUS XR) 1 MG TB24 Take 2 mg by mouth daily. VALGANCICLOVIR (VALCYTE) 450 MG TABLET Take 2 tablets (900 mg total) by mouth daily. Allergies: Allergies as of 04/26/2018 - Fully Reviewed 04/26/2018 Allergen Reaction Noted ??? Codeine Other (See Comments) 08/18/2017 Review of Systems Review of Systems Constitutional: Positive for fatigue and weight gain. Negative for appetite change, chills and fever. HENT: Negative for congestion and sore throat. Respiratory: Positive for shortness of breath. Negative for choking and wheezing. Cardiovascular: Positive for chest pain and leg swelling. Negative for palpitations. Gastrointestinal: Positive for abdominal distention, heartburn and nausea. Negative for abdominal pain, blood in stool, constipation, diarrhea, rectal pain and vomiting. Genitourinary: Negative for difficulty urinating, dysuria, frequency and urgency. Musculoskeletal: Negative for arthralgias, myalgias and neck pain. Skin: Positive for rash. Neurological: Negative for dizziness, syncope and headaches. Physical Exam ED Triage Vitals [04/26/181811] Vital Signs Group Temp 98.4 ??F (36.9 ??C) Temp Source Oral Heart Rate 87 Heart Rate Source Monitor Resp 18 SpO2 97 % BP 174/86 MAP (mmHg) BP Location Right arm BP Method Automatic Patient Position Sitting SpO2 97 % O2 Device None (Room air) Physical Exam Constitutional: He is oriented to person, place, and time and well-developed, well-nourished, and in no distress. HENT: Head: Normocephalic and atraumatic. Eyes: Pupils are equal, round, and reactive to light. Neck: Normal range of motion. Cardiovascular: Normal rate, regular rhythm and normal heart sounds. Pulmonary/Chest: Effort normal. No respiratory distress. Abdominal: He exhibits distension. There is no tenderness. There is no rebound and no guarding. Musculoskeletal: Normal range of motion. Neurological: He is alert and oriented to person, place, and time. GCS score is 15. Skin: Skin is warm and dry. Rash (petechial rash on bilateral shins, R>L) noted. Pale appearing Diagnostic Studies Labs: Labs Reviewed POC GLU MONITORING DEVICE - Abnormal; Notable for the following: Result Value POC Glucose Monitoring Device 196 (*) All other components within normal limits RENAL FUNCTION PANEL W/EGFR TROPONIN I HEPATIC FUNCTION PANEL CBC DIFFERENTIAL B NATRIURETIC PEPTIDE MAGNESIUM PHOSPHORUS TACROLIMUS LEVEL LIPASE URINALYSIS-MACROSCOPIC W/REFLEX TO MICROSCOPIC LACTIC ACID, VENOUS, WHOLE BLOOD, [facility] Radiology: X-ray Chest PA and Lateral (Results Pending) EKG: Indication Chest pain, Rate 75, Rhythm normal sinus, Interval 154, Chauvin normal, ST Segment Change none and Comparison to prior EKG shows no change Emergency Department Procedures Procedures ED Course and MDM Aiden Stauffer is a 43 y.o. male with a history and presentation as described above in HPI. The patient was evaluated by myself and the ED Attending Physician, Dr. Turner, as well as my R4 Dr. Dickey.All management and disposition plans were discussed and agreed upon. Appropriate labs and diagnostic studies were reviewed as they were made available. Pertinent laboratory studies in medical decision making are listed below. Patient presents with multiple concerning complaints in the setting of a complex past medical history, including liver transplant in Sep 2017. Recent change in medication, switching from cyclosporineto prograf. Patient reports worsening of fatigue, shortness of breath, and development of rash. PBroad initial differential including rejection, kidney failure, ACS, heart failure. EKG non concerning for ACS. POC glucose 196. Broad lab evaluation ordered. CXR pending. At this time I am going off-service and will be signing out care of this patient to my colleague Dr. Christina for further care. My colleague's responsibilities will include: - following up all lab results - monitoring patient - contacting transplant surgery Consults: None Summary of Treatment in ED: Medications - No data to display Impression No diagnosis found. Edgar Cummins MD Resident 04/26/182019 Cosigned by Kip Turner MD at 04/26/2018 9:48 PM EDT documented in this encounter Consult Notes * Curry Neil MD - 04/26/2018 10:38 PM EDT Transplant Surgery Consultation Note Patient: Aiden Stauffer CSN: [id number] Requesting Team: ED History CC: chest pain, weight gain, fatigue HPI: Aiden Stauffer is a 43 y.o. 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 Pt was evaluated by Pulmonology and oxygen requirement was deemed to be multifactorial related to fluid overload, atelectasis, and obesity. Pt was discharged post-op on continuous oxygen. Pt also developed a severe tremor post- op likely / to Prograf. He was transitioned to cyclosporine on POD#15 and discharged on this. Pt was recently transitioned back to tacrolimus approximately two weeks ago due to worsening renal function (increasing Cr) on cyclosporine, and pt reports feeling fatigued since this transition. Pt states he has gained about 20lbs in the last month. Tolerating PO intake. Denies emesis or change inbowel habits. Intermittent nausea. Pt also notes a rash on bilateral calves. Rash is red and spotty and localized to the area. Notes that he believes this appeared after restarting Prograf. No pain in area. Pt endorses worsening SOB over the past month that is most noticeable after exertion. He feels thathis edema and fatigue have acutely worsened since switching back to tacrolimus. Endorses some dizziness when standing quickly, which has occurred since transplant but no other issues. Pt states chest pain has been intermittent over the past few months, L-sided, no radiation. Has previously presented to OSH for chest pain with negative work-up. He states he has reflux and attributes the chest pain to that. PMH: Past Medical History: Diagnosis Date ??? Acute pancreatitis ??? Ascites ??? Diabetes mellitus (CMS Dx) ??? Esophageal varices with bleeding (CMS Dx) ??? GERD (gastroesophageal reflux disease) ??? Hepatic encephalopathy (CMS Dx) ??? Hypertension ??? 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 Vitamin D deficiency PSH: Past Surgical History: Procedure Laterality Date ??? LIVER TRANSPLANTATION N/A 10/08/2017 Procedure: TRANSPLANT LIVER; Surgeon: Ami Rossi MD; Location: OR; Service: Transplant; Laterality: N/A; ??? TIPS PROCEDURE 10/2016 ??? TIPS Revision 04/2017 Medications: No current facility-administered medications on file prior [...] meters. 150 strip 5 ??? blood-glucose meter ([employer] VERIO SYSTEM) Misc Use as instructed. 1 each 0 ??? carvedilol (COREG) 25 MG tablet Take 2 tablets (50 mg total) by mouth 2 times a day with meals.120 tablet 5 ??? cycloSPORINE modified (NEORAL/GENGRAF) 25 MG capsule Take 4 capsules (100 mg total) by mouth 2 times a day. Indications: Prevention of Liver Transplant Rejection 480 capsule 5 ??? doxazosin (CARDURA) 2 MG tablet Take 2 mg by mouth at bedtime. ??? entecavir (BARACLUDE) 1 MG tablet Take 1 tablet (1 mg total) by mouth daily. 30 tablet 11 ??? gabapentin (NEURONTIN) 600 MG tablet Take 1,200 mg by mouth 3 times a day. ??? insulin lispro (HUMALOG KWIKPEN INSULIN) 100 unit/mL InPn Administer insulin with meals per sliding scale: glucose 150-199=2 u, 200-249=4 u, 250-299=7 u, 300-349=10 u, >349= 12 units 15 mL 5 ??? insulin NPH isoph U-100 human (HUMULIN N NPH INSULIN KWIKPEN) 100 unit/mL (3 mL) InPn Inject subcutaneously 50 units in the AM and 17 units in the PM. (Patient taking differently: Inject subcutaneously 48 units in the AM and 15 units in the PM. ) 15 mL 5 ??? lancets ([employer] LANCETS) 33 gauge Misc Use 1 strip as directed 4 times daily before meals and at bedtime. 150 each 5 ??? mycophenolate (CELLCEPT) 250 mg capsule Take 3 capsules (750 mg total) by mouth 2 times a day. 180 capsule 5 ??? NIFEdipine (ADALAT CC) 90 MG 24 hr tablet Take 90 mg by mouth daily. ??? pen needle, diabetic 32 gauge x 5/32 Ndle Use as directed to inject insulin 4 times daily. 150each 5 ??? pen needle, diabetic 32 gauge x 5/32 Ndle For use with insulin pen. Use as instructed. 150 each 5 ??? tacrolimus (ENVARSUS XR) 1 mg Tb24 Take 2 mg by mouth daily. 60 tablet 5 ??? valGANciclovir (VALCYTE) 450 mg tablet Take 2 tablets (900 mg total) by mouth daily. 60 tablet 3 Allergies: Codeine SH: Social History Social History ??? Marital status: [...] History Narrative ??? No narrative on file FH: Family History Problem Relation Age of Onset ??? Diabetes Sister ROS: Review of Systems Constitutional: Positive for fatigue. Negative for chills and fever. Eyes: Negative for pain and redness. Respiratory: Positive for shortness of breath. Negative for chest tightness. Cardiovascular: Negative for chest pain and palpitations. Gastrointestinal: Negative for abdominal distention, abdominal pain, constipation, diarrhea, nauseaand vomiting. Genitourinary: Positive for hematuria. Negative for difficulty urinating and dysuria. Musculoskeletal: Negative for gait problem, neck pain and neck stiffness. Skin: Positive for rash. Neurological: Negative for dizziness, syncope and light-headedness. Hematological: Negative for adenopathy. Psychiatric/Behavioral: Negative for agitation. Vital Signs Temp: [98.4 ??F (36.9 ??C)-99 ??F (37.2 ??C)] 99 ??F (37.2 ??C) Heart Rate: [74-87] 74 Resp: [16-18] 16 BP: (158-174)/(86) 158/86 Vitals: 04/26/18 2133 BP: 158/86 Pulse: 74 Resp: 16 Temp: 99 ??F (37.2 ??C) SpO2: 96% Physical Exam Physical Exam Constitutional: He is oriented to person, place, and time. No distress. HENT: Head: Normocephalic and atraumatic. Eyes: Pupils are equal, round, and reactive to light. Conjunctivae and EOM are normal. Neck: Normal range of motion. Neck supple. Cardiovascular: Normal rate and regular rhythm. Pulmonary/Chest: Effort normal. No respiratory distress. Abdominal: Soft. He exhibits no distension. There is no tenderness. There is no rebound and no guarding. Previous surgical incision well-healed Musculoskeletal: Normal range of motion. He exhibits edema. Neurological: He is alert and oriented to person, place, and time. Skin: Skin is warm and dry. Rash noted. He is not diaphoretic. Macular rash with mild erythema on bilateral calves Psychiatric: He has a normal mood and affect. Laboratory Data Invalid input(s): CO2ART, HBO2PE Lab 04/26/182021 WBC 3.1* HEMOGLOBIN 9.5* HEMATOCRIT 26.8* MEAN CORPUSCULAR VOLUME 93.9 PLATELETS 186 Lab 04/26/182021 SODIUM 141 POTASSIUM 4.7 CHLORIDE 108 CO2 26 BUN 31* CREATININE 1.93* GLUCOSE 128* CALCIUM 9.1 MAGNESIUM 1.9 PHOSPHORUS 3.1 3.1 Lab 04/26/182021 ALT 18 AST 15 ALK PHOS 156* BILIRUBIN TOTAL 0.3 BILIRUBIN DIRECT 0.1 ALBUMIN 3.7 3.7 Lab 04/26/182023 COLOR, URINE Yellow CLARITY Clear PROTEIN UA >=300 mg/dL* PH UA 5.5 SPECIFIC GRAVITY, URINE >=1.030 GLUCOSE UA 100 mg/dL* BLOOD UA Moderate* LEUKOCYTES UA Negative NITRITE UA Negative BILIRUBIN UA Negative UROBILINOGEN UA 0.2 E.U./dL RBC UA 7* WBC UA 1 BACTERIA Rare* Imaging Studies X-ray Chest Pa And Lateral Result Date: 04/26/2018 Exam: XR CHEST PA AND LATERAL dated 04/26/2018 7:48 PM EDT CLINICAL HISTORY: Chest pain, unspecified, COMPARISON: CT chest dated 10/26/2017. Chest radiographs dated 10/24/2017. FINDINGS : 2 views of thechest. Lungs are clear without evidence of focal consolidation, pleural effusion, or pneumothorax. Cardiac silhouette is mildly enlarged. No osseous abnormalities. No evidence of subdiaphragmatic free air. IMPRESSION: Clear lungs. Borderline cardiomegaly. Approved by Reginaldo Ceballos on 04/26/2018 8:08 PM EDT I have personally reviewed the images and I agree with this report. Report Verified by: EDWINA COLLAZO at 04/26/2018 8:17 PM EDT Assessment and Plan Aiden Stauffer is a 43 y.o. 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 Pt states his chest pain is related to reflux, cardiac work-up negative today. Pt's weight gain, SOB, and increased fatigue likely 2/2 to volume overload. CXR does not show significant pulmonary edema, however per pt, lower extremity edema has acutely worsened in congruence with his recent weight gain. Will likely require diuresis. Lower extremity rash does not appear to be cellulitis, will require outpatient monitoring. Afebrile, no leukocytosis. Pt currently stable on RA. Symptoms may be related to restarting Prograf. Otherwise feeling well. Plan: Fatigue, SOB, weight gain likely 2/2 volume overload - 60mg IV Lasix now - Prescribe 40mg PO Lasix daily for 5 days - Advised pt to follow-up in usual Hepatology clinic tomorrow or as soon as possible to be re-evaluated and have medications reviewed. Pt may require further alteration of immunosuppression Rash - No topical remedies or abx as of now. Monitor as outpatient for progression (increased erythema/induration etc.) and need for antimicrobial therapy Chest pain, reflux - Advised pt to follow-up with PCP vs Hepatology regarding reflux symptoms and be evaluated for possible anti-reflux treatment Follow-up with Transplant Surgery as scheduled. Discussed with Transplant Surgery fellow. CURRY NEIL MD Transplant Surgery [id number] Pager Cosigned by Ami Rossi MD at 04/27/2018 7:33 AM EDT Associated attestation - Ami Rossi MD - 04/27/2018 7:33 AM EDT Agree with above note and plan and findings. documented in this encounter Nursing Notes * Charisma Fernández RN - 04/26/2018 5:52 PM EDT Patient had a Liver transplant in September of this year. Medication was changed, cyclosporin was dc'd and prograf was started). Patient had reaction originally to Prograf. Now patient is having increased SOB, rash on legs, and abdominal and BLE swelling. FSBS at home 131. marine operations coordinator sent patient to [facility] ED for work-up. documented in this encounter ED Notes * Mare Bowman RN - 04/27/2018 1:47 AM EDT Discharge instructions provided to patient by RN at bedside. Patient verbalized understanding of instructions given. No further issues addressed at this time. * Mare Bowman RN - 04/26/2018 7:59 PM EDT Patient off unit for x-ray at this time. documented in this encounter Plan of Treatment Upcoming Encounters Date Type Department Care Team (Late st Contact Info) Description 07/15/2024 9:00 AM EST Hospital Encounter [facility] Interventional Radiology [address] [place] [address] Herve Carrillo MD [address] [place] [phone] documented as of this encounter Procedures Procedure Name Priority Date/Time Associated Diagnosis Comments LACTIC ACID, VENOUS, WHOLE BLOOD, MC STAT 04/26/2018 8:31 PM EDT URINALYSIS, MICROSCOPIC Add-On 04/26/2018 8:24 PM EDT URINALYSIS-MACROSCOPI C W/REFLEX TO MICROSCOPIC Add-On 04/26/2018 8:24 PM EDT HEPATIC FUNCTION PANEL STAT 04/26/2018 8:22 PM EDT RENAL FUNCTION PANEL W/EGFR STAT 04/26/2018 8:22 PM EDT TACROLIMUS LEVEL Routine 04/26/2018 8:22 PM EDT TROPONIN I STAT 04/26/2018 8:22 PM EDT DIFFERENTIAL STAT 04/26/2018 8:22 PM EDT CBC STAT 04/26/2018 8:22 PM EDT PHOSPHORUS STAT 04/26/2018 8:22 PM EDT B NATRIURETIC PEPTIDE STAT 04/26/2018 8:22 PM EDT MAGNESIUM STAT 04/26/2018 8:22 PM EDT LIPASE Routine 04/26/2018 8:22 PM EDT XR CHEST PA AND LATERAL STAT 04/26/2018 7:58 PM EDT ED ECG 12-LEAD (MUSE) STAT 04/26/2018 7:36 PM EDT GLUCOSE POC NURSING STAT 04/26/2018 6 :54 PM EDT POC GLU MONITORING DEVICE Routine 04/26/2018 6:54 PM EDT EKG REPORT - SCAN 04/26/2018 12: 00 AM EDT documented in this encounter Results * Lactic acid, venous, whole blood (04/26/2018 8:31 PM EDT) Lactate, Yuval 0.6 0.5 - 2.2 mmol/L 04/26/2018 8:39 PM EDT [facility] Whole blood specimen (specimen) 04/26/2018 8:31 PM EDT 04/26/2018 8:38 PM EDT Edgar Cummins MD LAB BLOOD ORDERABLES Yoselin l Result Performing Organization Address City/[facility]/ZIP Co de Phone Number [facility] [address] * (ABNORMAL) Urinalysis, Microscopic (04/26/2018 8:24 PM EDT) RBC, UA 7(H) 0 - 3 /HPF 04/26/2018 10:03 PM EDT [facility] WBC, UA 1 0 - 5 /HPF 04/26/2018 10:03 PM EDT [facility] Bacteria, UA Rare(A) None Seen /HPF 04/26/2018 10:03 PM EDT [facility] Urine specimen (specimen) 04/26/2018 8:24 PM EDT 04/26/2018 9:23 PM EDT us Ronald Christina MD URINE ORDERABLES Fin al Result [facility] [address] * (ABNORMAL) Urinalysis-Macroscopic w/Rfx to Microsco (04/26/2018 8:24 PM EDT) Color, UA Yellow Yellow,Straw 04/26/2018 9:24 PM EDT [facility] Clarity, UA Clear Clear 04/26/2018 9:24 PM EDT [facility] Specific [place], UA >=1.030 1.005 - 1.035 04/26/2018 9:24 PM EDT [facility] pH, UA 5.5 5.0 - 8.0 04/26/2018 9:24 PM EDT [facility] Protein, UA >=300 mg/dL(A) Negative mg/dL 04/26/2018 9:24 PM EDT [facility] Glucose, UA 100 mg/dL(A) Negative mg/dL 04/26/2018 9:24 PM EDT [facility] Ketones, UA Negative Negative mg/dL 04/26/2018 9:24 PM EDT [facility] Bilirubin, UA Negative Negative 04/26/2018 9:24 PM EDT [facility] Blood, UA Moderate(A) Negative 04/26/2018 9:24 PM EDT [facility] Nitrite, UA Negative Negative 04/26/2018 9:24 PM EDT [facility] Urobilinogen, UA 0.2 E.U./dL 0.2 - 1.0 EU/dL 04/26/2018 9:24 PM EDT [facility] Leukocyte Esterase, UA Negative Negative 04/26/2018 9:24 PM EDT [facility] Urine specimen (specimen) 04/26/2018 8:24 PM EDT 04/26/2018 9:20 PM EDT us Ronald Christina MD URINE ORDERABLES Fin al Result Performing Organization Address City/[facility]/ZIP Co de Phone Number [facility] [address] * (ABNORMAL) Lipase (04/26/2018 8:22 PM EDT) Lipase 139(H) 4 - 82 U/L 04/26/2018 9:00 PM EDT [facility] Plasma specimen (specimen) 04/26/2018 8:22 PM EDT 04/26/2018 8:39 PM EDT us Edgar Cummins MD LAB BLOOD ORDERABLES Yoselin l Result [facility] [address] * (ABNORMAL) Tacrolimus level (04/26/2018 8:22 PM EDT) Tacrolimus Lvl 3.7(L) 5.0 - 20.0 ng/mL 04/27/2018 11:09 AM EDT [facility] Comment: Detection limit: ??2 ng/mL. ??Performed via chemiluminescent microparticle immunoassay on the [facility] [facility] [employer] i1000. Whole blood specimen (specimen) 04/26/2018 8:22 PM EDT 04/26/2018 9:00 PM EDT Edgar Cummins MD LAB BLOOD ORDERABLES Yoselin l Result [facility] [address] [facility]. [address] * Phosphorus (04/26/2018 8:22 PM EDT) Phosphorus 3.1 2.1 - 4.7 mg/dL 04/26/2018 9:00 PM EDT [facility] Plasma specimen (specimen) 04/26/2018 8:22 PM EDT 04/26/2018 8:38 PM EDT Edgar Cummins MD LAB BLOOD ORDERABLES Yoselin l Result Performing Organization Address City/[facility]/ZIP Co de Phone Number [facility] [address] [place] [address]. [address] * Magnesium (04/26/2018 8:22 PM EDT) Magnesium 1.9 1.5 - 2.5 mg/dL 04/26/2018 9:00 PM EDT [facility] Plasma specimen (specimen) 04/26/2018 8:22 PM EDT 04/26/2018 8:38 PM EDT Edgar Cummins MD LAB BLOOD ORDERABLES Yoselin l Result [facility] [address] [facility]. [address] * BNP (04/26/2018 8:22 PM EDT) BNP 77 0 - 100 pg/mL 04/26/2018 10:42 PM EDT [facility] Plasma specimen (specimen) 04/26/2018 8:22 PM EDT 04/26/2018 9:00 PM EDT Edgar Cummins MD LAB BLOOD ORDERABLES Yoselin l Result Performing Organization Address City/State/[facility] Co de Phone Number [facility] [address] [place] [id number] * (ABNORMAL) Differential (04/26/2018 8:22 PM EDT) Neutrophils Relative 61.6 40.0 - 80.0 % 04/26/2018 9:51 PM EDT [facility] Lymphocytes Relative 20.7 15.0 - 45.0 % 04/26/2018 9:51 PM EDT [facility] Monocytes Relative 14.3(H) 0.0 - 12.0 % 04/26/2018 9:51 PM EDT [facility] Eosinophils Relative 3.2 0.0 - 8.0 % 04/26/2018 9:51 PM EDT [facility] Basophils Relative 0.2 0.0 - 1.0 % 04/26/2018 9:51 PM EDT [facility] nRBC 0 0 - 0 /100 WBC 04/26/2018 9:51 PM EDT [facility] Neutrophils Absolute 1,910 1,500 - 7,800 /uL 04/26/2018 9:51 PM EDT [facility] Lymphocytes Absolute 642(L) 850 - 3,900 /uL 04/26/2018 9:51 PM EDT [facility] Monocytes Absolute 443 200 - 950 /uL 04/26/2018 9:51 PM EDT [facility] Eosinophils Absolute 99 15 - 500 /uL 04/26/2018 9:51 PM EDT [facility] Basophils Absolute 6 0 - 200 /uL 04/26/2018 9:51 PM EDT [facility] Whole blood specimen (specimen) 04/26/2018 8:22 PM EDT 04/26/2018 9:00 PM EDT Edgar Cummins MD LAB BLOOD ORDERABLES Yoselin l Result [facility] [address] * (ABNORMAL) CBC (04/26/2018 8:22 PM EDT) WBC 3.1(L) 3.8 - 10.8 10E3/uL 04/26/2018 9:51 PM EDT [facility] RBC 2.86(L) 4.20 - 5.80 10E6/uL 04/26/2018 9:51 PM EDT [facility] Hemoglobin 9.5(L) 13.2 - 17.1 g/dL 04/26/2018 9:51 PM EDT [facility] Hematocrit 26.8(L) 38.5 - 50.0 % 04/26/2018 9:51 PM EDT [facility] MCV 93.9 80.0 - 100.0 fL 04/26/2018 9:51 PM EDT [facility] MCH 33.2(H) 27.0 - 33.0 pg 04/26/2018 9:51 PM EDT [facility] MCHC 35.4 32.0 - 36.0 g/dL 04/26/2018 9:51 PM EDT [facility] RDW 13.2 11.0 - 15.0 % 04/26/2018 9:51 PM EDT [facility] Platelets 186 140 - 400 10E3/uL 04/26/2018 9:51 PM EDT [facility] MPV 7.0(L) 7.5 - 11.5 fL 04/26/2018 9:51 PM EDT [facility] Whole blood specimen (specimen) 04/26/2018 8:22 PM EDT 04/26/2018 9:00 PM EDT Narrative [facility] - 04/26/2018 9:57 PM EDT PAGED TRENA ESCAMILLA THROUGH THE ANSWERING SYSTEM AT [address] Edgar Cummins MD LAB BLOOD ORDERABLES Yoselin l Result [facility] [address] [place] [address] * (ABNORMAL) Hepatic Function Panel (04/26/2018 8:22 PM EDT) Total Bilirubin 0.3 0.0 - 1.5 mg/dL 04/26/2018 9:00 PM EDT [facility] Bilirubin, Direct 0.1 0.0 - 0.4 mg/dL 04/26/2018 9:00 PM EDT [facility] AST 15 13 - 39 U/L 04/26/2018 9:00 PM EDT [facility] ALT 18 7 - 52 U/L 04/26/2018 9:00 PM EDT [facility] Alkaline Phosphatase 156(H) 36 - 125 U/L 04/26/2018 9:00 PM EDT [facility] Total Protein 6.4 6.4 - 8.9 g/dL 04/26/2018 9:00 PM EDT [facility] Albumin 3.7 3.5 - 5.7 g/dL 04/26/2018 9:00 PM EDT [facility] Bilirubin, Indirect 0.2 0.0 - 1.1 mg/dL 04/26/2018 9:00 PM EDT [facility] Plasma specimen (specimen) 04/26/2018 8:22 PM EDT 04/26/2018 8:38 PM EDT Edgar Cummins MD LAB BLOOD ORDERABLES Yoselin l Result Performing Organization Address [facility]/ZIP Co de Phone Number [facility] [address] * Troponin I (04/26/2018 8:22 PM EDT) Troponin I <0.04 0.00 - 0.03 ng/mL 04/26/2018 8:59 PM EDT [facility] Plasma specimen (specimen) 04/26/2018 8:22 PM EDT 04/26/2018 8:38 PM EDT Edgar Cummins MD LAB BLOOD ORDERABLES Yoselin l Result [facility] [address] * (ABNORMAL) Renal Function Panel w/EGFR (04/26/2018 8:22 PM EDT) Sodium 141 133 - 146 mmol/L 04/26/2018 9:00 PM EDT [facility] Potassium 4.7 3.5 - 5.3 mmol/L 04/26/2018 9:00 PM EDT [facility] Chloride 108 98 - 110 mmol/L 04/26/2018 9:00 PM EDT [facility] CO2 26 21 - 33 mmol/L 04/26/2018 9:00 PM EDT [facility] Anion Gap 7 3 - 16 mmol/L 04/26/2018 9:00 PM EDT [facility] BUN 31(H) 7 - 25 mg/dL 04/26/2018 9:00 PM EDT [facility] Creatinine 1.93(H) 0.60 - 1.30 mg/dL 04/26/2018 9:00 PM EDT [facility] Glucose 128(H) 70 - 100 mg/dL 04/26/2018 9:00 PM EDT [facility] Calcium 9.1 8.6 - 10.3 mg/dL 04/26/2018 9:00 PM EDT [facility] Phosphorus 3.1 2.1 - 4.7 mg/dL 04/26/2018 9:00 PM EDT [facility] Albumin 3.7 3.5 - 5.7 g/dL 04/26/2018 9:00 PM EDT [facility] Osmolality, Calculated 300 278 - 305 mOsm/kg 04/26/2018 9:00 PM EDT [facility] eGFR AA CKD-EPI 48 See note. 8 9:00 PM EDT [facility] Comment: As of 2015 [...] equation to estimate glomerular filtration rate. ??Jennifer Bilingual Administrative Assistant Med. 2009:150(9):604-12 eGFR NONAA CKD-EPI 41 See note. 2017 9:00 PM EDT [facility] Comment: As of [...] equation to estimate glomerular filtration rate. ??Jennifer Bilingual Administrative Assistant Med. 2009:150(9):604-12 Plasma specimen (specimen) 04/26/2018 8:22 PM EDT 04/26/2018 8:38 PM EDT us Edgar Cummins MD LAB BLOOD ORDERABLES Yoselin l Result Performing Organization Address City/State/[facility] Co de Phone Number [facility] [address] * X-ray Chest PA and Lateral (04/26/2018 7:58 PM EDT) Anatomical Region Laterality Modality Chest Radiographic Sobia ging 04/26/2018 7:48 PM EDT Impressions 04/26/2018 8:17 PM EDT IMPRESSION: Clear lungs. Borderline cardiomegaly. Approved by Reginaldo Ceballos on 04/26/2018 8:08 PM EDT I have personally reviewed the images and I agree with this report. Report Verified by: EDWINA COLLAZO at 04/26/2018 8:17 PM EDT Narrative 04/26/2018 8:17 PM EDT Exam: XR CHEST PA AND LATERAL dated 04/26/2018 7:48 PM EDT CLINICAL HISTORY: Chest pain, unspecified, COMPARISON: CT chest dated 10/26/2017. Chest radiographs dated 10/24/2017. FINDINGS : 2 views of the chest. Lungs are clear without evidence of focal consolidation, pleural effusion, or pneumothorax. Cardiac silhouette is mildly enlarged. No osseous abnormalities. No evidence of subdiaphragmatic free air. Procedure Note Edwina Collazo MD - 04/26/2018 Exam: XR CHEST PA AND LATERAL dated 04/26/2018 7:48 PM EDT CLINICAL HISTORY: Chest pain, unspecified, COMPARISON: CT chest dated 10/26/2017. Chest radiographs dated 10/24/2017. FINDINGS : 2 views of the chest. Lungs are clear without evidence of focalconsolidation, pleural effusion, or pneumothorax. Cardiac silhouette ismildly enlarged. No osseous abnormalities. No evidence of subdiaphragmaticfree air. IMPRESSION: Clear lungs. Borderline cardiomegaly. Approved by Reginaldo Ceballos on 04/26/2018 8:08 PM EDT I have personally reviewed the images and I agree with this report. Report Verified by: EDWINA COLLAZO at 04/26/2018 8:17 PM EDT Edgar Cummins MD IMG DIAGNOSTIC IMAGING OR DERABLES Final Result * ECG for indication of chest pain (04/26/2018 7:36 PM EDT) 04/26/2018 7:36 PM EDT Narrative MUSE - 04/27/2018 7:50 AM EDT Ventricular Rate: ??75 ??BPM Atrial Rate: ??75 ??BPM P-R Interval: ??154 ??ms QRS Duration: ??102 ??ms QT: ??392 ??ms QTc: ??437 ??ms P Chauvin: ??37 ??degrees R Chauvin: ??51 ??degrees T Chauvin: ??47 ??degrees Diagnosis Line: ??INTERPRETATION NOT AVAILABLE--ECG READ IN ER ^ Confirmed by PHYSICIAN, ER ([id number]), purchasing expeditor TITI BENÍTEZ ([id number]) on 04/27/2018 7:50:08 AM Edgar Cummins MD ECG ORDERABLES Final Res ult MUSE * (ABNORMAL) Glucose POC Nursing (04/26/2018 6:54 PM EDT) POC Glucose 196 EXTERNAL Triage Protocol Emergency MD NURSING ASS ESSMENT ORDERABLES - ONCE OR AT INTERVALS Final Result EXTERNAL * (ABNORMAL) POC Glucose Monitoring Device (04/26/2018 6:54 PM EDT) POC Glucose Monitoring Device 196(H) 70 - 100 mg/dL 04/26/2018 6:55 PM EDT [facility] Blood specimen (specimen) 04/26/2018 6:54 PM EDT 04/26/2018 6:55 PM EDT us Edgar Fournier MD POINT OF CARE TEST ORDERABLES Final Result [facility] [address] * EKG REPORT - SCAN (04/26/2018 12:00 AM EDT) us Scanning Uchhim SCAN DOCS - NO RESULTS Final Res ult documented in this encounter Visit Diagnoses Diagnosis Fluid retention- Primary Fluid overload documented in this encounter Administered Medications Inactive Administered Medications - up to 3 most recent administrations Medication Order MAR Action Action Date Dose Rate Site carvedilol (COREG) tablet 50 mg 50 mg, Oral, 2 times daily with meals, First dose on Mon04/27/18 at 0800 furosemide (LASIX) injection 60 mg 60 mg, Intravenous, Once, On Mon04/27/18 at 0045, For 1 dose, Give doses of 100mg or less over 5 minutes. For doses over 100mg, give at rate of up to 20mg/min. Given 04/27/2018 1:16 AM EDT 60 mg gabapentin (NEURONTIN) capsule 1,200 mg 1,200 mg, Oral, Once, On Mon04/27/18 at 0047, For 1 dose Given 04/27/2018 1:16 AM EDT 1,200 mg mycophenolate (CELLCEPT) capsule 750 mg 750 mg, Oral, Once, On Mon04/27/18 at 0047, For 1 dose, LEVEL 2 HAZARDOUS MEDICATION Given 04/27/2018 1:16 AM EDT 750 mg proMETHazine (PHENERGAN) 25 mg/mL injection Starting on Mon04/27/18 at 0130, For 1 dose, MARE BOWMAN M: cabinet override IRRITANT IV Push administration REQUIRES dilution with 10 mL Saline proMETHazine (PHENERGAN) injection 12.5 mg 12.5 mg, Intravenous, Once, On Bobbi 04/26/18 at 2100, For 1 dose, IRRITANT IV Push administration REQUIRES dilution with 10 mL Saline Given 04/26/2018 9:13 PM EDT 12.5 mg proMETHazine (PHENERGAN) injection 12.5 mg 12.5 mg, Intravenous, Once, On Mon04/27/18 at 0134, For 1 dose, IRRITANT IV Push administration REQUIRES dilution with 10 mL Saline Given 04/27/2018 1:37 AM EDT 12.5 mg documented in this encounter Active and Recently Administered Medications Times are shown in EDT. Scheduled Medication Order 04/25/2018 04/26/2018 04/27/2018 carvedilol (COREG) tablet 50 mg 50 mg, Oral, 2 times daily with meals, First dose on Mon04/27/18 at 0800 furosemide (LASIX) injection 60 mg (COMPLETED) 60 mg, Intravenous, Once, On Mon04/27/18 at 0045, For 1 dose, Give doses of 100mg or less over 5 minutes. For doses over 100mg, give at rate of up to 20mg/min. 0116 (Given - Provid er: Mare Bowman RN) gabapentin (NEURONTIN) capsule 1,200 mg (COMPLETED) 1,200 mg, Oral, Once, On Mon04/27/18 at 0047, For 1 dose 0116 (Given - Provid er: Mare Bowman RN) mycophenolate (CELLCEPT) capsule 750 mg (COMPLETED) 750 mg, Oral, Once, On Mon04/27/18 at 0047, For 1 dose, LEVEL 2 HAZARDOUS MEDICATION 0116 (Given - Provid er: Mare Bowman RN) proMETHazine (PHENERGAN) injection 12.5 mg (COMPLETED) 12.5 mg, Intravenous, Once, On Bobbi 04/26/18 at 2100, For 1 dose, IRRITANT IV Push administration REQUIRES dilution with 10 mL Saline 2113 (Given - Provider: Mare Bowman RN) proMETHazine (PHENERGAN) injection 12.5 mg (COMPLETED) 12.5 mg, Intravenous, Once, On Mon04/27/18 at 0134, For 1 dose, IRRITANT IV Push administration REQUIRES dilution with 10 mL Saline 0137 (Given - Provid er: Mare Bowman RN) documented in this encounter Additional Health Concerns Assessment Noted Time PHQ-9 Depression Total Score: 0 12/06/19 18 3:00 PM EDT documented as of this encounter Care Teams Clinical Tech Relationship Specialty Start Date End Date Edgar Fournier MD [address] [place] [address] [place] [address] PCP - General 08/18/17 06/23/21 Maile Valles, JANA Txp Post Coordinator Transplant Hepatology 11/07/17 Jack Ordoñez MD [facility] [place] [address] Consulting Physician Transplant Hepatology 01/05/18 documented as of this encounter
--- OUTSIDE RECORDS SUMMARY | 2024-07-12 12:52 | XMS_ITS | Encounter Summary ---
Author Organization [facility] Address [address] [place] [address] Care Team Providers Care Chinese Instructor Name Role Phone Edgar Fournier MD Primary Care Provider [phone] Maile Valles RN Unavailable Unavail able Jack Ordoñez MD Unavailable [phone] Source Comments This information has been [...] release of HIV test results or diagnoses. [id number] Reason for Visit * Reason Comments Nurse Visit AP Treatment Encounter Details Date Type Department Care Team (Latest Contact Info) Description 02/26/2018 10:30 AM EDT Clinical Support [facility] [address] [place] [address] Unknown, Attending Provider Eleanor Reed LPN [address] [place] [address] Immunosuppression ([facility]-HCC) Social History Tobacco Use Types Packs/Day [...] Sign Reading Time Taken Comments Blood Pressure 178/88 02/26/2018 11:11 AM EDT Pulse 88 02/26/2018 11:11 AM EDT Temperature 36.8 ??C (98.2 ??F) 02/26/2018 11:11 AM E DT Respiratory Rate 18 02/26/2018 11:11 AM EDT Oxygen Saturation 98% 02/26/2018 11:11 AM EDT Inhaled Oxygen Concentration 98% 02/26/2018 1 1:11 AM EDT Weight - - Height - - Body Mass Index - - documented in this encounter Patient Instructions * Patient Instructions* Eleanor Reed LPN - 02/26/2018 10:30 AM EDT Follow up with transplant team documented in this encounter Progress Notes * Eleanor Reed LPN - 02/26/2018 10:30 AM EDT Pt here for final AP treatment Used inhaler prior to start of treatment Was evaluated by transplant team this morning as well Pt tolerated treatment well nebupent mixed with 6 ml sterile water [facility]# 97088-612-41 [id number] Exp 08/2019 documented in this encounter Plan of Treatment Upcoming Encounters Date Type Department Care Team (Late st Contact Info) Description 07/15/2024 9:00 AM EST Hospital [facility] Inter[facility]iology [address] [place] [phone] Herve Carrillo MD [address] [facility] [address] Surgery [place] [phone] documented as of this encounter Visit Diagnoses Diagnosis Immunosuppression (CMS-HCC) documented in this encounter Additional Health Concerns Assessment Noted Time PHQ-9 Depression Total Score: 0 12/06/19 18 3:00 PM EDT documented as of this encounter Care Teams Chinese Instructor Relationship Specialty Start Date End Date Edgar Fournier MD [address] [place] [address] [place] [address] PCP - General 08/18/17 06/23/21 Maile Valles, JANA Txp Post Coordinator Transplant Hepatology 11/07/17 Jack Ordoñez MD [address] [place] [phone] Consulting Physician Transplant Hepatology 01/05/18 documented as of this encounter
--- OUTSIDE RECORDS SUMMARY | 2024-07-12 12:52 | XMS_ITS | Encounter Summary ---
Author Organization [facility] Address [address] [place] [address] Care Team Providers Care Services Engineer Name Role Phone Edgar Fournier MD Primary Care Provider [phone] Maile Valles RN Unavailable Unavail able Jack Ordoñez MD Unavailable [phone] Source Comments This information has been [...] release of HIV test results or diagnoses. [id number] Health Encounter Details Date Type Department Care Team (Late st Contact Info) Description 02/26/2018 9:35 AM EDT Specimen [facility] Outreach Lab [address] [place] [phone] Jack Ordoñez MD [address] [place] [phone] Transplanted liver (CMS-HCC); Drug therapy Social History Tobacco Use Types [...] [facility] Interventional Radiology [address] [place] [address] Herve Carrillo MD [address] [facility] Ed [address] [place] [address] documented as of this encounter Procedures Procedure Name Priority Date/Time Associated Diagnosis Comments HEPATIC FUNCTION PANEL Routine 02/26/2018 9:51 AM EDT Transplanted liver (CMS-HCC) Drug therapy RENAL FUNCTION PANEL W/EGFR Routine 02/26/2018 9:51 AM EDT Transplanted liver (CMS-HCC) Drug therapy DIFFERENTIAL Routine 02/26/2018 9:51 AM EDT Transplanted liver (CMS-HCC) Drug therapy CBC Routine 02/26/2018 9:51 AM EDT Transplanted liver (CMS-HCC) Drug therapy MAGNESIUM Routine 02/26/2018 9:51 AM EDT Transplanted liver (CMS-HCC) Drug therapy CYCLOSPORINE LEVEL Routine 02/26/2018 9: 50 AM EDT Transplanted liver (CMS-HCC) Drug therapy documented in this encounter Results * Magnesium (02/26/2018 9:51 AM EDT) Magnesium 1.8 1.5 - 2.5 mg/dL 02/26/2018 10:29 AM EDT [facility] Plasma specimen (specimen) 02/26/2018 9:51 AM EDT 02/26/2018 9:51 AM EDT Narrative [facility] - 02/26/2018 10:29 AM EDT Standing labs every 2 weeks. Please fax results to [phone]; Critical results call [phone] us Jack Ordoñez MD LAB BLOOD ORDERABLES Final Re sult [facility] [address] [place] [address], [facility] * (ABNORMAL) Renal Function Panel w/EGFR (02/26/2018 9:51 AM EDT) Sodium 139 133 - 146 mmol/L 02/26/2018 10:29 AM EDT [facility] Potassium 5.0 3.5 - 5.3 mmol/L 02/26/2018 10:29 AM EDT [facility] Chloride 105 98 - 110 mmol/L 02/26/2018 10:29 AM EDT [facility] CO2 26 21 - 33 mmol/L 02/26/2018 10:29 AM EDT [facility] Anion Gap 8 3 - 16 mmol/L 02/26/2018 10:29 AM EDT [facility] BUN 33(H) 7 - 25 mg/dL 02/26/2018 10:29 AM EDT [facility] Creatinine 1.93(H) 0.60 - 1.30 mg/dL 02/26/2018 10:29 AM EDT [facility] Glucose 129(H) 70 - 100 mg/dL 02/26/2018 10:29 AM EDT [facility] Calcium 9.1 8.6 - 10.3 mg/dL 02/26/2018 10:29 AM EDT [facility] Phosphorus 4.6 2.1 - 4.7 mg/dL 02/26/2018 10:29 AM EDT [facility] Albumin 4.1 3.5 - 5.7 g/dL 02/26/2018 10:29 AM EDT [facility] Osmolality, Calculated 297 278 - 305 mOsm/kg 02/26/2018 10:29 AM EDT [facility] eGFR AA CKD-EPI 48 See note. 8 10:29 AM EDT [facility] Comment: As of 2015 the [...] equation to estimate glomerular filtration rate. ??Jennifer [employer]. 2009:150(9):604-12 eGFR NONAA CKD-EPI 41 See note. 2017 10:29 AM EDT [facility] Comment: As of [...] equation to estimate glomerular filtration rate. ??[employer]. 2009:150(9):604-12 Plasma specimen (specimen) 02/26/2018 9:51 AM EDT 02/26/2018 9:51 AM EDT Narrative [facility] - 02/26/2018 10:29 AM EDT Standing labs every 2 weeks. Please fax results to [phone]; Critical results call [phone] us Jack Ordoñez MD LAB BLOOD ORDERABLES Final Re sult [facility] [address] * (ABNORMAL) Hepatic Function Panel (02/26/2018 9:51 AM EDT) Total Bilirubin 0.4 0.0 - 1.5 mg/dL 02/26/2018 10:29 AM EDT [facility] Bilirubin, Direct 0.06 0.00 - 0.40 mg/dL 02/26/2018 10:29 AM EDT [facility] AST 12(L) 13 - 39 U/L 02/26/2018 10:29 AM EDT [facility] ALT 12 7 - 52 U/L 02/26/2018 10:29 AM EDT [facility] Alkaline Phosphatase 126(H) 36 - 125 U/L 02/26/2018 10:29 AM EDT [facility] Total Protein 6.5 6.4 - 8.9 g/dL 02/26/2018 10:29 AM EDT [facility] Albumin 4.1 3.5 - 5.7 g/dL 02/26/2018 10:29 AM EDT [facility] Bilirubin, Indirect 0.34 0.00 - 1.10 mg/dL 02/26/2018 10:29 AM EDT [facility] Plasma specimen (specimen) 02/26/2018 9:51 AM EDT 02/26/2018 9:51 AM EDT Narrative [facility] - 02/26/2018 10:29 AM EDT Standing labs every 2 weeks. Please fax results to [phone]; Critical results call [phone] us Jack Ordoñez MD LAB BLOOD ORDERABLES Final Re sult [facility] [address] * Differential (02/26/2018 9:51 AM EDT) Neutrophils Relative 70.5 40.0 - 80.0 % 02/26/2018 10:04 AM EDT [facility] Lymphocytes Relative 22.8 15.0 - 45.0 % 02/26/2018 10:04 AM EDT [facility] Monocytes Relative 5.7 0.0 - 12.0 % 02/26/2018 10:04 AM EDT [facility] Eosinophils Relative 0.6 0.0 - 8.0 % 02/26/2018 10:04 AM EDT [facility] Basophils Relative 0.4 0.0 - 1.0 % 02/26/2018 10:04 AM EDT [facility] nRBC 0 0 - 0 /100 WBC 02/26/2018 10:04 AM EDT [facility] Neutrophils Absolute 2,750 1,500 - 7,800 /uL 02/26/2018 10:04 AM EDT [facility] Lymphocytes Absolute 889 850 - 3,900 /uL 02/26/2018 10:04 AM EDT [facility] Monocytes Absolute 222 200 - 950 /uL 02/26/2018 10:04 AM EDT [facility] Eosinophils Absolute 23 15 - 500 /uL 02/26/2018 10:04 AM EDT [facility] Basophils Absolute 16 0 - 200 /uL 02/26/2018 10:04 AM EDT [facility] Whole blood specimen (specimen) 02/26/2018 9:51 AM EDT 02/26/2018 9:51 AM EDT Narrative [facility] - 02/26/2018 10:04 AM EDT Standing labs every 2 weeks. Please fax results to [phone]; Critical results call [phone] us Jack Ordoñez MD LAB BLOOD ORDERABLES Final Re sult [facility] [address] * (ABNORMAL) CBC (02/26/2018 9:51 AM EDT) WBC 3.9 3.8 - 10.8 10E3/uL 02/26/2018 10:04 AM EDT [facility] RBC 3.49(L) 4.20 - 5.80 10E6/uL 02/26/2018 10:04 AM EDT [facility] Hemoglobin 11.4(L) 13.2 - 17.1 g/dL 02/26/2018 10:04 AM EDT [facility] Hematocrit 31.9(L) 38.5 - 50.0 % 02/26/2018 10:04 AM EDT [facility] MCV 91.2 80.0 - 100.0 fL 02/26/2018 10:04 AM EDT [facility] MCH 32.8 27.0 - 33.0 pg 02/26/2018 10:04 AM EDT [facility] MCHC 35.9 32.0 - 36.0 g/dL 02/26/2018 10:04 AM EDT [facility] RDW 14.6 11.0 - 15.0 % 02/26/2018 10:04 AM EDT [facility] Platelets 198 140 - 400 10E3/uL 02/26/2018 10:04 AM EDT [facility] MPV 6.7(L) 7.5 - 11.5 fL 02/26/2018 10:04 AM EDT [facility] Whole blood specimen (specimen) 02/26/2018 9:51 AM EDT 02/26/2018 9:51 AM EDT [facility] - 02/26/2018 10:04 AM EDT Standing labs every 2 weeks. Please fax results to [phone]; Critical results call [phone] Jack Ordoñez MD LAB BLOOD ORDERABLES Final Re sult Performing Organization Address [facility] Co de Phone Number [facility] [address] [facility]. [address] * Cyclosporine level (02/26/2018 9:50 AM EDT) Cyclosporine, Blood 107 100 - 400 ng/mL 02/26/2018 1:27 PM EDT [facility] Comment: Detection limit: ??30 ng/mL. ??Performed via chemiluminescent microparticle immunoassay on the [employer] Battery i1000. Whole blood specimen (specimen) 02/26/2018 9:50 AM EDT 02/26/2018 9:50 AM EDT [place] [facility] - 02/26/2018 1:27 PM EDT Standing labs every 2 weeks. Please fax results to [phone]; Critical results call [phone] Jack Ordoñez MD LAB BLOOD ORDERABLES Final Re sult Performing Organization Address City/[facility]/ZIP Co de Phone Number [facility] [address] documented in this encounter Visit Diagnoses Diagnosis Transplanted liver (CMS-HCC) Liver replaced by transplant Drug therapy Encounter for other specified aftercare documented in this encounter Additional Health Concerns Assessment Noted Time PHQ-9 Depression Total Score: 0 12/06/19 18 3:00 PM EDT documented as of this encounter Care Teams Services Engineer Relationship Specialty Start Date End Date Edgar Fournier MD [address] [place] [address] PCP - General 08/18/17 06/23/21 Maile Valles, RN Txp Post Coordinator Transplant Hepatology 11/07/17 Jack Ordoñez MD [address] [place] [address] Consulting Physician Transplant Hepatology 01/05/18 documented as of this encounter
--- OUTSIDE RECORDS SUMMARY | 2024-07-12 12:52 | XMS_ITS | Encounter Summary ---
Author Organization Health Address [facility] [place] [address] Care Team Providers Care Printing Technician Name Role Phone Edgar Fournier MD Primary Care Provider [phone] Maile Valles RN Unavailable Unavail able Jack Ordoñez MD Unavailable [phone] Source Comments This information has been [...] release of HIV test results or diagnoses. [id number] Encounter Details Date Type Department Care Team (Late st Contact Info) Description 04/02/2018 Telephone [facility] Liver Transplant at Outpatient [address] [address] Latrice Brice MA Social History [...] Telephone Encounter - Maile Valles RN - 04/03/2018 2:[address] Ordoñez: Please have him repeat labs this week. Cr is 2.1 and liver tests are rising. May need to be switched back to tacrolimus Attempted to contact patient to discuss. No answer at multiple phone numbers and unable to leave message. 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 Aiden verbalized understanding * Telephone Encounter - Maile Valles RN - 04/02/2018 12:[address] Rossi: Ok to be tazed. Waiting review of labs from Dr. Ordoñez. * Telephone Encounter - Maile Valles RN - 04/02/2018 10:45 AM EDT Lab results from 03/27/18 reviewed. Cr elevated to 2.1. LFTs elevated as noted below: 01/15/2018 10:26 01/30/2018 09:38 02/13/2018 10:44 02/26/2018 09:51 03/27/2018 09:40 Alkaline Phosphatase 132 129 140 126 218 SGOT (AST) 13 10 13 12 25 ALT (SGPT) 17 15 19 12 57 Cyclosporine level 60, goal 100-150. Patient to discontinue Valcyte on 04/07. Will order CMV quants to be drawn 04/09, 04/23, and 05/07. Will route lab results to Txp Provider for review and recommendations. * Telephone Encounter - Latrice Brice MA - 04/02/2018 10:34 AM EDT Aiden called requesting his coordinator call him back with recent lab results. Aiden also stated hestops Valcyte at end of March and thought there was a blood test he needed to have wants to speak with his coordinator regarding that matter as well. Aiden stated he had a question just for Dr. Rossi. 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 Will route message to tutor coordinator JANA Gr and Dr. Rossi per patient request documented in this encounter Plan of Treatment Upcoming Encounters Date Type Department Care Team (Late st Contact Info) Description 07/15/2024 9:00 AM [facility] Hospital Encounter [facility] Interventional Radiology [address] [place] [phone] Herve Carrillo MD [address] [facility] [address] [place] [phone] documented as of this encounter Visit Diagnoses Not on filedocumented in this encounter Additional Health Concerns Assessment Noted Time PHQ-9 Depression Total Score: 0 12/06/19 18 3:00 PM EDT documented as of this encounter Care Teams Printing Technician Relationship Specialty Start Date End Date Edgar Fournier MD [address] [place] [address] [place] [address] PCP - General 08/18/17 06/23/21 Maile Valles, JANA Txp Post Coordinator Transplant Hepatology 11/07/17 Jack Ordoñez MD [address] [place] [phone] Consulting Physician Transplant Hepatology 01/05/18 documented as of this encounter
--- OUTSIDE RECORDS SUMMARY | 2024-07-12 12:52 | XMS_ITS | Encounter Summary ---
Author Organization Health Address [facility] [place] [address] Care Team Providers Care Dumpcart Driver Name Role Phone Edgar Fournier MD Primary Care Provider [phone] Maile Valles RN Unavailable Unavail able Jack Ordoñez MD Unavailable [phone] Source Comments This information has been [...] release of HIV test results or diagnoses. [id number] Encounter Details Date Type Department Care Team (Late st Contact Info) Description 03/07/[address] [facility] Liver Transplant at Outpatient [address] [address] Maile Valles, JANA Social History [...] Telephone Encounter - Latrice Brice MA - 03/09/2018 2:37 PM EDT This MA spoke with Aiden regarding Vane's diet and if he would like to try a commercial type diet he should consider Weight Watchers. This MA explained to Aiden any diet that excludes an entire foodgroup. 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 This MA suggested maybe a protein shake could help and Aiden stated he would love that because he does like protein shakes. Will route message to environmental coordinator JANA Gr to advise okay for protein shakes? * Telephone Encounter - Maile Jean Baptiste RN - 03/07/2018 7:40 AM EDT Received VM from patient asking if Vane's diet would be OK. D/w Madelyn Kwok RD. Any diet that excludes an entire food group is not advised. If patient wants to follow a commercial diet, human resources trainee would recommend Weight Watchers. Txp MA to let patient know. documented in this encounter Plan of Treatment Upcoming Encounters Date Type Department Care Team (Late st Contact Info) Description 07/15/2024 9:00 AM EST Hospital Encounter [facility] Interventional Radiology [address] [place] [phone] Herve Carrillo MD [address] [place] [facility] [address] Surgery [place] [phone] documented as of this encounter Visit Diagnoses Not on filedocumented in this encounter Additional Health Concerns Assessment Noted Time PHQ-9 Depression Total Score: 0 12/06/19 18 3:00 PM EDT documented as of this encounter Care Teams Dumpcart Driver Relationship Specialty Start Date End Date Edgar Fournier MD [address] [place] [address] PCP - General 08/18/17 06/23/21 Maile Valles, RN Txp Post Coordinator Transplant Hepatology 11/07/17 Jack Ordoñez MD [facility] [place] [address] Consulting Physician Transplant Hepatology 01/05/18 documented as of this encounter
--- OUTSIDE RECORDS SUMMARY | 2024-07-12 12:52 | XMS_ITS | Encounter Summary ---
Author Organization Health Address [facility] [place] [address] Care Team Providers Care Metal Fabricating Supervisor Name Role Phone Edgar Fournier MD Primary Care Provider [phone] Maile Valles RN Unavailable Unavail able Jack Ordoñez MD Unavailable [phone] Source Comments This information has been [...] release of HIV test results or diagnoses. [id number] Encounter Details Date Type Department Care Team (Late st Contact Info) Description 03/29/2018 Telephone [facility] Liver Transplant at Outpatient [address] [address] Beth Irizarry MA Social History Tobacco Use Types Packs/Day [...] [facility] Interventional Radiology [address] [place] [phone] Herve Carrillo MD [address] [facility] [address] [place] [address] documented as of this encounter Visit Diagnoses Not on filedocumented in this encounter Additional Health Concerns Assessment Noted Time PHQ-9 Depression Total Score: 0 12/06/19 18 3:00 PM EDT documented as of this encounter Care Teams Metal Fabricating Supervisor Relationship Specialty Start Date End Date Edgar Fournier MD [address] [place] [address] [place] [address] PCP - General 08/18/17 06/23/21 Maile Valles, RN Txp Post Coordinator Transplant Hepatology 11/07/17 Jack Ordoñez MD [address] [place] [phone] Consulting Physician Transplant Hepatology 01/05/18 documented as of this encounter
--- OUTSIDE RECORDS SUMMARY | 2024-07-12 12:52 | XMS_ITS | Encounter Summary ---
Author Organization [facility] Address [address] [place] [address] Care Team Providers Care Pc Support Specialist Name Role Phone Edgar Fournier MD Primary Care Provider [phone] Maile Valles RN Unavailable Unavail able Jack Ordoñez MD Unavailable [phone] Source Comments This information has been [...] release of HIV test results or diagnoses. [id number] Reason for Visit * Reason Comments Medication Refill Encounter Details Date Type Department Care Team (Late st Contact Info) Description 04/11/2018 Refill [facility] Liver Transplant at Outpatient Pavilion [address] [place] [address] Bere Feng, RAMON [address] [facility] 3[address] [place] [phone] Social History Tobacco Use Types Packs/Day Years [...] Encounter [facility] Interventional Radiology [address] [place] [phone] Herve Carrillo MD 3130 [facility] [address] [place] [phone] documented as of this encounter Visit Diagnoses Not on filedocumented in this encounter Additional Health Concerns Assessment Noted Time PHQ-9 Depression Total Score: 0 12/06/19 18 3:00 PM EDT documented as of this encounter Care Teams Pc Support Specialist Relationship Specialty Start Date End Date Edgar Fournier MD [address] [place] [address] [place] [address] PCP - General 08/18/17 06/23/21 Maile Valles, RN Txp Post Coordinator Transplant Hepatology 11/07/17 Jack Ordoñez MD [address] [place] [phone] Consulting Physician Transplant Hepatology 01/05/18 documented as of this encounter
--- OUTSIDE RECORDS SUMMARY | 2024-07-12 12:52 | XMS_ITS | Encounter Summary ---
Author Organization Health Address [facility] [place] [place] [address] Care Team Providers Care Water And Gas Helper Name Role Phone Edgar Fournier MD Primary Care Provider [phone] Maile Valles RN Unavailable Unavail able Jack Ordoñez MD Unavailable [phone] Source Comments This information has been [...] release of HIV test results or diagnoses. [id number] Encounter Details Date Type Department Care Team (Late st Contact Info) Description 02/27/2018 Telephone [facility] Liver Transplant at Outpatient [address] [address] Latrice Brice MA Social History [...] Telephone Encounter - Latrice Brice MA - 02/27/2018 2:27 PM EDT Aiden called requesting his recent lab results be sent to his PCP for appointment today due to dizziness and having a headache for 2-3 weeks. Aiden stated he wanted Maile to be aware and he call him if need be for instructions for PCP. Will route message to hall coordinator JANA Gr documented in this encounter Plan of Treatment Upcoming Encounters Date Type Department Care Team (Late st Contact Info) Description 07/15/2024 9:00 AM EST Hospital Encounter [facility] Interventional Radiology [address] [place] [phone] Herve Carrillo MD 3130 [facility] 3200 [place] [phone] documented as of this encounter Visit Diagnoses Not on filedocumented in this encounter Additional Health Concerns Assessment Noted Time PHQ-9 Depression Total Score: 0 12/06/19 18 3:00 PM EDT documented as of this encounter Care Teams Water And Gas Helper Relationship Specialty Start Date End Date Edgar Fournier MD [address] [place] [address] [place] [address] PCP - General 08/18/17 06/23/21 Maile Valles, JANA Txp Post Coordinator Transplant Hepatology 11/07/17 Jack Ordoñez MD [address] [place] [phone] Consulting Physician Transplant Hepatology 01/05/18 documented as of this encounter
--- OUTSIDE RECORDS SUMMARY | 2024-07-12 12:52 | XMS_ITS | Encounter Summary ---
Author Organization Health Address [facility] [place] [address] Care Team Providers Care Child Care Director Name Role Phone Edgar Fournier MD Primary Care Provider [phone] Maile Valles RN Unavailable Unavail able Jack Ordoñez MD Unavailable [phone] Source Comments This information has been [...] release of HIV test results or diagnoses. [id number] Health Encounter Details Date Type Department Care Team (Late st Contact Info) Description 04/11/2018 Orders Only [facility] [address] Maile Valles, JANA S/P liver transplant ([facility]) (Primary Dx); Immunosuppression ([facility]) Social History Tobacco Use Types [...] 07/15/2024 9:00 AM EST Hospital Encounter [facility] Interventional Radiology [address] [place] [phone] Herve Carrillo MD 3130 [facility] 3200 [place] [phone] documented as of this encounter Visit Diagnoses Diagnosis S/P liver transplant (CMS-HCC)- Primary Immunosuppression (CMS-HCC) documented in this encounter Additional Health Concerns Assessment Noted Time PHQ-9 Depression Total Score: 0 12/06/19 18 3:00 PM EDT documented as of this encounter Care Teams Child Care Director Relationship Specialty Start Date End Date Edgar Fournier MD [address] [place] [address] [place] [address] PCP - General 08/18/17 06/23/21 Maile Valles, JANA Txp Post Coordinator Transplant Hepatology 11/07/17 Jack Ordoñez MD [address] [place] [phone] Consulting Physician Transplant Hepatology 01/05/18 documented as of this encounter
--- OUTSIDE RECORDS SUMMARY | 2024-07-12 12:52 | XMS_ITS | Encounter Summary ---
Author Organization [facility] Address [address] [place] [address] Care Team Providers Care Medical Instrument Technician Name Role Phone Edgar Fournier MD Primary Care Provider [phone] Maile Valles RN Unavailable Unavail able Jack Ordoñez MD Unavailable [phone] Source Comments This information has been [...] release of HIV test results or diagnoses. [id number] Health Encounter Details Date Type Department Care Team (Late st Contact Info) Description 04/11/2018 Telephone [facility] [address] [place] [phone] Judi Khan, Lizbet Social History Tobacco Use Types Packs/Day Years [...] Telephone Encounter - Judi Khan RPh - 04/11/2018 9:35 AM EDT A new prescription for Envarsus XR 1 mg tablets was received at [facility] on 04/11/18, which could not be filled to due patient's [facility] Medicaid restricting him to using pharmacies only within the [facility]. The prescription was transferred to Mr. Stauffer's home [facility] in [place], [place] (phone: [phone]). The receiving pharmacist explained the order would have to be forwarded to [facility]'s specialty pharmacy as they do not allow retail locations to order Envarsus, and she confirmed the specialty pharmacy would reach out to Mr. Stauffer directlyto arrange delivery to his home versus shipment to the [facility] retail location. I called Mr. Staufferto explain where/how the order would be fulfilled and instructed him to follow up with [facility] directly if he had not been contacted in the next 24 hours. The prescription will cost the patient $0 per [facility]. documented in this encounter Plan of Treatment Upcoming Encounters Date Type Department Care Team (Late st Contact Info) Description 07/15/2024 9:00 AM EST Hospital Encounter [facility] Interventional Radiology [address] [place] [phone] Herve Carrillo MD 0190 [facility] 3200 Surgery [place] [phone] documented as of this encounter Visit Diagnoses Not on filedocumented in this encounter Additional Health Concerns Assessment Noted Time PHQ-9 Depression Total Score: 0 12/06/19 18 3:00 PM EDT documented as of this encounter Care Teams Medical Instrument Technician Relationship Specialty Start Date End Date Edgar Fournier MD [address] [place] [address] [place] [address] PCP - General 08/18/17 06/23/21 Maile Valles, JANA Txp Post Coordinator Transplant Hepatology 11/07/17 Jack Ordoñez MD [facility] [place] [address] Consulting Physician Transplant Hepatology 01/05/18 documented as of this encounter
--- OUTSIDE RECORDS SUMMARY | 2024-07-12 12:52 | XMS_ITS | Encounter Summary ---
Author Organization [facility] Address [facility] [place] [address] Care Team Providers Care Loss Prevention Operations Manager Name Role Phone Edgar Fournier MD Primary Care Provider [phone] Maile Valles RN Unavailable Unavail able Jack Ordoñez MD Unavailable [phone] Source Comments This information has been [...] release of HIV test results or diagnoses. [id number] Reason for Visit * Reason Comments Medication Refill Encounter Details Date Type Department Care Team (Late st Contact Info) Description 04/09/[address] [facility] [address] [place] [phone] Beth Irizarry MA Immunosuppression ([facility]) Social History Tobacco Use Types Packs/Day [...] [facility] Interventional Radiology [address] [place] [phone] Herve Carrillo MD 3130 [facility] 3200 Surgery [place] [phone] documented as of this encounter Visit Diagnoses Diagnosis Immunosuppression (CMS-HCC) documented in this encounter Additional Health Concerns Assessment Noted Time PHQ-9 Depression Total Score: 0 12/06/19 18 3:00 PM EDT documented as of this encounter Care Teams Loss Prevention Operations Manager Relationship Specialty Start Date End Date Edgar Fournier MD [address] [place] [address] [place] [address] PCP - General 08/18/17 06/23/21 Maile Valles, JANA Txp Post Coordinator Transplant Hepatology 11/07/17 Jack Ordoñ[place] [address] [place] [phone] Consulting Physician Transplant Hepatology 01/05/18 documented as of this encounter
--- OUTSIDE RECORDS SUMMARY | 2024-07-12 12:52 | XMS_ITS | Encounter Summary ---
Author Organization Health Address [facility] [place] [address] Care Team Providers Care Diesel Automotive Technician Name Role Phone Edgar Fournier MD Primary Care Provider [phone] Maile Valles RN Unavailable Unavail able Jack Ordoñez MD Unavailable [phone] Source Comments This information has been [...] release of HIV test results or diagnoses. [id number] Health Encounter Details Date Type Department Care Team (Late st Contact Info) Description 04/10/2018 Orders Only [facility] [phone] Maile Valles, JANA S/P liver transplant ([facility]) (Primary Dx) Social History Tobacco Use Types [...] 9:00 AM EST Hospital Encounter [facility] Interventional Radiology [address] [place] [phone] Herve Carrillo MD 3130 [facility] 3200 Surgery [place] [phone] documented as of this encounter Visit Diagnoses Diagnosis S/P liver transplant (CMS-HCC)- Primary documented in this encounter Additional Health Concerns Assessment Noted Time PHQ-9 Depression Total Score: 0 12/06/19 18 3:00 PM EDT documented as of this encounter Care Teams Diesel Automotive Technician Relationship Specialty Start Date End Date Edgar Fournier MD [address] [place] [address] [place] [phone] PCP - General 08/18/17 06/23/21 Maile Valles, JANA Txp Post Coordinator Transplant Hepatology 11/07/17 Jack Ordoñ[place] [address] [place] [phone] Consulting Physician Transplant Hepatology 01/05/18 documented as of this encounter
--- OUTSIDE RECORDS SUMMARY | 2024-07-12 12:52 | XMS_ITS | Encounter Summary ---
Author Organization Health Address [address] [place] [address] Care Team Providers Care Customer Complaint Service Supervisor Name Role Phone Edgar Fournier MD Primary Care Provider [phone] Maile Valles RN Unavailable Unavail able Jack Ordoñez MD Unavailable [phone] Source Comments This information has been [...] release of HIV test results or diagnoses. [id number] Encounter Details Date Type Department Care Team (Late st Contact Info) Description 04/06/2018 Abstract [facility] G[facility] [place] [facility] [id number] [place] [phone] Yoli Mcbride MA Social History Tobacco Use [...] [facility] Interventional Radiology [address] [place] [phone] Herve Carrillo MD [address] [facility] [place] [address] documented as of this encounter Procedures Procedure Name Priority Date/Time Associated Diagnosis Comments CBC Routine 04/04/2018 8:15 PM EDT GLUCOSE, RANDOM Routine 04/04/2018 8:15 PM EDT HEPATIC FUNCTION PANEL Routine 04/04/2018 8:15 PM EDT RENAL FUNCTION PANEL W/O EGFR Routine 04/04/2018 8:15 PM EDT documented in this encounter Results * Glucose, random (04/04/2018 8:15 PM EDT) Glucose 142 60 - 200 mg/dL Plasma specimen (specimen) Historical Provider LAB BLOOD ORDERABLES Yoselin l Result * (ABNORMAL) Hepatic function panel (04/04/2018 8:15 PM EDT) Alkaline Phosphatase 181 U/L ALT 29 U/L AST 24 U/L Total Bilirubin 0.3 0.1 - 1.4 mg/dL Protein, Total 6.6 Albumin 3.3(A) 3.5 - 5.0 g/dL Blood specimen (specimen) [facility] Provider LAB BLOOD ORDERABLES Yoselin l Result * (ABNORMAL) Renal Function Panel w/o EGFR (04/04/2018 8:15 PM EDT) Creatinine 2.3 BUN 40(A) 4 - 21 mg/dL Potassium 5 3.4 - 5.3 mmol/L Sodium 142 137 - 147 mmol/L Chloride 107 99 - 108 mmol/L Phosphorus 4.1 2.5 - 4.9 mg/dL Magnesium 1.7 1.6 - 2.4 mg/dL Calcium 8.3(A) 8.7 - 10.7 mg/dL Blood specimen (specimen) Historical Provider MD LAB BLOOD ORDERABLES Yoselin l Result * (ABNORMAL) CBC (04/04/2018 8:15 PM EDT) Hemoglobin 10.2(A) 13.5 - 17.5 g/dL Hematocrit 28.5(A) 41 - 53 % MCH 32.7 26.0 - 34.0 pg MCV 91.3 82.0 - 108.0 fL WBC 2.5 10^3/mL Platelets 198 Whole blood specimen (specimen) Historical Provider LAB BLOOD ORDERABLES Yoselin l Result documented in this encounter Visit Diagnoses Not on filedocumented in this encounter Additional Health Concerns Assessment Noted Time PHQ-9 Depression Total Score: 0 12/06/19 18 3:00 PM EDT documented as of this encounter Care Teams Customer Complaint Service Supervisor Relationship Specialty Start Date End Date Edgar Fournier MD [address] [place] [address] [place] [address] PCP - General 08/18/17 06/23/21 Maile Valles, JANA Txp Post Coordinator Transplant Hepatology 11/07/17 Jack Ordoñez MD [address] [place] [address] Consulting Physician Transplant Hepatology 01/05/18 documented as of this encounter
--- OUTSIDE RECORDS SUMMARY | 2024-07-12 12:52 | XMS_ITS | Encounter Summary ---
Author Organization Health Address [facility]0 [place] [address] Care Team Providers Care Tongue Lining Stitcher Name Role Phone Edgar Fournier MD Primary Care Provider [phone] Maile Valles RN Unavailable Unavail able Jack Ordoñez MD Unavailable [phone] Source Comments This information has been [...] release of HIV test results or diagnoses. [id number] Encounter Details Date Type Department Care Team (Late st Contact Info) Description 04/09/2018 Chart Note [facility] [phone] Beth Irizarry MA Social History Tobacco Use [...] Description 07/15/2024 9:00 AM EST Hospital Encounter [facility] Interventional Radiology [address] [place] [address] Herve Carrillo MD 3130 [facility] Ed 3200 [place] [address] documented as of this encounter Procedures Procedure Name Priority Date/Time Associated Diagnosis Comments CYCLOSPORINE LEVEL Routine 04/04/2018 8: 15 PM EDT documented in this encounter Results * Cyclosporine level (04/04/2018 8:15 PM EDT) Cyclosporine, Blood 43 EXTERNAL Whole blood specimen (specimen) us Historical Provider LAB BLOOD ORDERABLES Yoselin l Result EXTERNAL documented in this encounter Visit Diagnoses Not on filedocumented in this encounter Additional Health Concerns Assessment Noted Time PHQ-9 Depression Total Score: 0 12/06/19 18 3:00 PM EDT documented as of this encounter Care Teams Tongue Lining Stitcher Relationship Specialty Start Date End Date Edgar Fournier MD [address] [place] [address] [place] [address] PCP - General 08/18/17 06/23/21 Maile Valles, JANA Txp Post Coordinator Transplant Hepatology 11/07/17 Jack Ordoñez MD [address] [place] [phone] Consulting Physician Transplant Hepatology 01/05/18 documented as of this encounter
--- OUTSIDE RECORDS SUMMARY | 2024-07-12 12:52 | XMS_ITS | Encounter Summary ---
Author Organization Health Address [address] [place] [address] Care Team Providers Care Pet Store Merchandiser Name Role Phone Edgar Fournier MD Primary Care Provider [phone] Maile Valles RN Unavailable Unavail able Jack Ordoñez MD Unavailable [phone] Source Comments This information has been [...] release of HIV test results or diagnoses. [id number] Encounter Details Date Type Department Care Team (Late st Contact Info) Description 02/23/2018 Social Work [facility] SOCIAL WORK [address] [place] [address] Chiquita Rosado, RADHA [address] [place] [address] Social History Tobacco Use Types Packs/Day Years [...] encounter Progress Notes * RADHA Kline - 02/23/2018 12:42 PM EDT Social Work Note- Outpatient Liver Transplant Patient is status post liver transplant on 10/08/17. Placed call to patient. He has a liver transplant clinic appointment on 02/26. Patient would like a gas card to be given during that visit. Card left with SW, Iman Hussein, to be given on 02/26. Patient has $200 remaining. If patient provides Iman Hussein with card that has a balance of $65, will follow up with company on Monday. No other needs identified. SW to follow. RADHA Kline, EMERGENCY MEDICAL SERVICES COORDINATOR [phone] documented in this encounter Plan of Treatment Upcoming Encounters Date Type Department Care Team (Late st Contact Info) Description 07/15/2024 9:00 AM [facility] Hospital Encounter [facility] Interventional Radiology [address] [place] [phone] Herve Carrillo MD 3130 [facility] 3200 [place] [address] documented as of this encounter Visit Diagnoses Not on filedocumented in this encounter Additional Health Concerns Assessment Noted Time PHQ-9 Depression Total Score: 0 12/06/19 18 3:00 PM EDT documented as of this encounter Care Teams Pet Store Merchandiser Relationship Specialty Start Date End Date Edgar Fournier MD [address] [place] [address] [place] [address] PCP - General 08/18/17 06/23/21 Maile Valles, RN Txp Post Coordinator Transplant Hepatology 11/07/17 Jack Ordoñez MD [address] [place] [phone] Consulting Physician Transplant Hepatology 01/05/18 documented as of this encounter
--- OUTSIDE RECORDS SUMMARY | 2024-07-12 12:52 | XMS_ITS | Encounter Summary ---
Author Organization Health Address [facility] [place] [address] Care Team Providers Care Filter Tip Catcher Name Role Phone Edgar Fournier MD Primary Care Provider [phone] Maile Valles RN Unavailable Unavail able Jack Ordoñez MD Unavailable [phone] Source Comments This information has been [...] release of HIV test results or diagnoses. [id number] Health Encounter Details Date Type Department Care Team (Late st Contact Info) Description 04/05/2018 Telephone [facility] Liver Transplant at Outpatient [address] [address] Cayetano Park MA Social History [...] Telephone Encounter - Cayetano Park MA - 04/05/2018 4:59 PM EDT Aiden called about his labs. They were not faxed. I called the hospital and they are to be faxing them to us. I made the construction services technician cordinator aware that his WBC is at 2.5. Aiden would like a call back about his labs. documented in this encounter Plan of Treatment Upcoming Encounters Date Type Department Care Team (Late st Contact Info) Description 07/15/2024 9:00 AM EST Hospital Encounter [facility] Interventional Radiology [address] [place] [phone] Herve Carrillo MD 3130 [facility] 3200 Surgery [place] [phone] documented as of this encounter Visit Diagnoses Not on filedocumented in this encounter Additional Health Concerns Assessment Noted Time PHQ-9 Depression Total Score: 0 12/06/19 18 3:00 PM EDT documented as of this encounter Care Teams Filter Tip Catcher Relationship Specialty Start Date End Date Edgar Fournier MD [address] [place] [address] [place] [address] PCP - General 08/18/17 06/23/21 Maile Valles, RN Txp Post Coordinator Transplant Hepatology 11/07/17 Jack Ordoñez MD [address] [place] [phone] Consulting Physician Transplant Hepatology 01/05/18 documented as of this encounter
--- OUTSIDE RECORDS SUMMARY | 2024-07-12 12:52 | XMS_ITS | Encounter Summary ---
Author Organization [facility] Address [address] [place] [address] Care Team Providers Care Customer Agent Name Role Phone Edgar Fournier MD Primary Care Provider [phone] Maile Valles RN Unavailable Unavail able Jack Ordoñez MD Unavailable [phone] Source Comments This information has been [...] release of HIV test results or diagnoses. [id number] Reason for Visit * Reason Comments Medication Refill Encounter Details Date Type Department Care Team (Late st Contact Info) Description 02/27/2018 Refill [facility] [place] [facility] Liver Transplant at Outpatient Pavilion [address] [place] [address] Bere Feng, RAMON [facility] 3200 [place] [phone] Social History Tobacco Use Types Packs/Day Years [...] Miscellaneous Notes * Telephone Encounter - Maile Jean Baptiste RN - 02/28/2018 3:29 PM EDT Spoke with patient. PCP managing. * Telephone Encounter - Maile Jean Baptiste RN - 02/27/2018 3:07 PM EDT Txp MA to find out if patient is still taking and to explain that this medication should be managedby PCP. documented in this encounter Plan of Treatment Upcoming Encounters Date Type Department Care Team (Late st Contact Info) Description 07/15/2024 9:00 AM EST Hospital Encounter [facility] [place] [facility] Interventional Radiology [address] [place] [phone] Herve Carrillo MD 3130 [facility] Ed 3200 [place] [phone] documented as of this encounter Visit Diagnoses Not on filedocumented in this encounter Additional Health Concerns Assessment Noted Time PHQ-9 Depression Total Score: 0 12/06/19 18 3:00 PM EDT documented as of this encounter Care Teams Customer Agent Relationship Specialty Start Date End Date Edgar Fournier MD [address] [place] [address] J[place] Downs [address] PCP - General 08/18/17 06/23/21 Maile Valles RN Txp Post Coordinator Transplant Hepatology 11/07/17 Jack Ordoñez MD [address] [place] [address] Consulting Physician Transplant Hepatology 01/05/18 documented as of this encounter
--- OUTSIDE RECORDS SUMMARY | 2024-07-12 12:52 | XMS_ITS | Encounter Summary ---
Author Organization Health Address [facility] [place] [address] Care Team Providers Care Assistant Name Role Phone Edgar Fournier MD Primary Care Provider [phone] Maile Valles RN Unavailable Unavail able Jack Ordoñez MD Unavailable [phone] Source Comments This information has been [...] release of HIV test results or diagnoses. [id number] Encounter Details Date Type Department Care Team (Late st Contact Info) Description 04/20/2018 Telephone [facility] Liver Transplant at Outpatient [address] [address] Beth Irizarry MA Social History [...] Telephone Encounter - Maile Valles RN - 04/23/2018 7:[address] Ordoñez: So, he reports more fatigue since starting tacrolimus? Let's increase cellcept to 750 BID. Repeat labs in a week Reviewed results and recommendations with the patient who verbalized understanding and is comfortable with the plan of care. * Telephone Encounter - Beth Irizarry - 04/20/2018 1:17 PM EDT Pt said he feels like his new medication is making him tired. He said on Cyclosporin he can normally work 12 hours a day while with the new medication he can work less and be exhausted. documented in this encounter Plan of Treatment Upcoming Encounters Date Type Department Care Team (Late st Contact Info) Description 07/15/2024 9:00 AM [facility] Hospital Encounter [facility] Interventional Radiology [address] [place] [phone] Herve Carrillo MD 3130 [facility] 3200 Surgery [place] [phone] documented as of this encounter Visit Diagnoses Diagnosis S/P liver transplant (CMS-HCC)- Primary Immunosuppression (CMS-HCC) documented in this encounter Additional Health Concerns Assessment Noted Time PHQ-9 Depression Total Score: 0 12/06/19 18 3:00 PM EDT documented as of this encounter Care Teams Assistant Relationship Specialty Start Date End Date Edgar Fournier MD [address] [place] [address] [place] [address] PCP - General 08/18/17 06/23/21 Maile Valles RN Txp Post Coordinator Transplant Hepatology 11/07/17 Jack Ordoñez MD [address] [place] [phone] Consulting Physician Transplant Hepatology 01/05/18 documented as of this encounter
--- OUTSIDE RECORDS SUMMARY | 2024-07-12 12:52 | XMS_ITS | Encounter Summary ---
Author Organization Health Address [facility] [place] [address] Care Team Providers Care Net Applications Developer Name Role Phone Edgar Fournier MD Primary Care Provider [phone] Maile Valles RN Unavailable Unavail able Jack Ordoñez MD Unavailable [phone] Source Comments This information has been [...] release of HIV test results or diagnoses. [id number] Encounter Details Date Type Department Care Team (Late st Contact Info) Description 04/17/2018 Telephone [facility] Liver Transplant at Outpatient [address] [address] Maile Valles, JANA Social History [...] Telephone Encounter - Maile Valles RN - 04/17/2018 3:32 PM EDT Called patient to determine if he had received/started Envarsus. Patient started medication on 04/14. Asked patient to have labs done on Monday or of this week. Patient agreed. documented in this encounter Plan of Treatment Upcoming Encounters Date Type Department Care Team (Late st Contact Info) Description 07/15/2024 9:00 AM EST Hospital Encounter [facility] Interventional Radiology [address] [place] [phone] Herve Carrillo MD 3130 [facility] 3200 [place] [phone] documented as of this encounter Visit Diagnoses Not on filedocumented in this encounter Additional Health Concerns Assessment Noted Time PHQ-9 Depression Total Score: 0 12/06/19 18 3:00 PM EDT documented as of this encounter Care Teams Net Applications Developer Relationship Specialty Start Date End Date Edgar Fournier MD [address] [place] [address] [place] [address] PCP - General 08/18/17 06/23/21 Maile Valles, JANA Txp Post Coordinator Transplant Hepatology 11/07/17 Jack Ordoñez MD [address] [place] [phone] Consulting Physician Transplant Hepatology 01/05/18 documented as of this encounter
--- OUTSIDE RECORDS SUMMARY | 2024-07-12 12:52 | XMS_ITS | Encounter Summary ---
Author Organization [facility] Address [address] [place] [address] Care Team Providers Care Irrigation Service Technician Name Role Phone Edgar Fournier MD Primary Care Provider [phone] Maile Valles RN Unavailable Unavail able Jack Ordoñez MD Unavailable [phone] Source Comments This information has been [...] release of HIV test results or diagnoses. [id number] Reason for Visit * Reason Comments Medication Refill Encounter Details Date Type Department Care Team (Late st Contact Info) Description 04/05/2018 Refill [facility] Liver Transplant at Outpatient [facility] [address] [place] [address] Bere Feng, COURIER [facility] [facility] [address] [place] [phone] Social History Tobacco Use Types Packs/Day Years [...] Hospital Encounter [facility] Interventional Radiology [address] [place] [phone] Herve Carrillo MD [address] [facility] [address]200 [place] [phone] documented as of this encounter Visit Diagnoses Not on filedocumented in this encounter Additional Health Concerns Assessment Noted Time PHQ-9 Depression Total Score: 0 12/06/19 18 3:00 PM EDT documented as of this encounter Care Teams Irrigation Service Technician Relationship Specialty Start Date End Date Edgar Fournier MD [address] [place] [address] [place] [address] PCP - General 08/18/17 06/23/21 Maile Valles, RN Txp Post Coordinator Transplant Hepatology 11/07/17 Jack Ordoñez MD [address] [place] [phone] Consulting Physician Transplant Hepatology 01/05/18 documented as of this encounter
--- OUTSIDE RECORDS SUMMARY | 2024-07-12 12:52 | XMS_ITS | Encounter Summary ---
Author Organization Health Address [facility] [place] [address] Care Team Providers Care Soda Column Operator Name Role Phone Edgar Fournier MD Primary Care Provider [phone] Maile Valles RN Unavailable Unavail able Jack Ordoñez MD Unavailable [phone] Source Comments This information has been [...] release of HIV test results or diagnoses. [id number] Encounter Details Date Type Department Care Team (Late st Contact Info) Description 04/06/2018 Chart Note [facility] [phone] Beth Irizarry MA Social History Tobacco Use [...] Description 07/15/2024 9:00 AM EST Hospital Encounter [facility] Interventional Radiology [address] [place] [phone] Herve Carrillo MD 8960 [facility] Ed [address] [place] [address] documented as of this encounter Procedures Procedure Name Priority Date/Time Associated Diagnosis Comments HEPATIC FUNCTION PANEL Routine 04/04/2018 8:15 PM EDT CBC AND DIFFERENTIAL Routine 04/04/2018 8:15 PM EDT MAGNESIUM Routine 04/04/2018 8:15 PM EDT RENAL FUNCTION PANEL W/O EGFR Routine 04/04/2018 8:15 PM EDT documented in this encounter Results * Magnesium (04/04/2018 8:15 PM EDT) Magnesium 1.7 1.6 - 2.4 mg/dL EXTERNAL Plasma specimen (specimen) us Historical Provider LAB BLOOD ORDERABLES Yoselin l Result EXTERNAL * (ABNORMAL) Renal Function Panel w/o EGFR (04/04/2018 8:15 PM EDT) Glucose 142 mg/dL EXTERNAL BUN 40(A) 4 - 21 mg/dL EXTERNAL CO2 27(A) 13 - 22 mmol/L EXTERNAL Creatinine 2.3(A) 0.6 - 1.3 mg/dL EXTERNAL Potassium 5 3.4 - 5.3 mmol/L EXTERNAL Sodium 142 137 - 147 mmol/L EXTERNAL Chloride 107 99 - 108 mmol/L EXTERNAL Albumin 3.3 EXTERNAL Phosphorus 4.1 2.5 - 4.9 mg/dL EXTERNAL Calcium 8.3(A) 8.7 - 10.7 mg/dL EXTERNAL EGFR 33 mg/dL EXTERNAL Blood specimen (specimen) Result [facility] Provider LAB BLOOD ORDERABLES Yoselin robles Result Performing Organization Address [facility] Co de Phone Number EXTERNAL * (ABNORMAL) CBC and differential (04/04/2018 8:15 PM EDT) Hemoglobin 10.2(A) 13.5 - 17.5 g/dL EXTERNAL Hematocrit 28.5(A) 41 - 53 % EXTERNAL RDW 13 11.5 - 14.5 % EXTERNAL Lymphocytes Absolute 0.81 /??L EXTERNAL Monocytes Absolute 0.15 /??L EXTERNAL Eosinophils Absolute 0.02 /??L EXTERNAL Basophils Absolute 0 /??L EXTERNAL Neutrophils Relative 60.9 46 - 78 % EXTERNAL Lymphocytes Relative 32.3 18 - 52 % EXTERNAL Monocytes Relative 6 3 - 10 % EXTERNAL Eosinophils Relative 0.8 0 - 6 % EXTERNAL Basophils Relative 0 0 - 3 % EXTERNAL Neutrophils Absolute 1.53 /??L EXTERNAL MCH 32.7 26.0 - 34.0 pg EXTERNAL MCHC 35.8 30 - 37 g/dL EXTERNAL MCV 91.3 82.0 - 108.0 fL EXTERNAL Platelets 198 K/??L EXTERNAL RBC 3.12(A) 4.50 - 5.90 10^6/??L EXTERNAL WBC 2.5 10^3/mL EXTERNAL Blood specimen (specimen) Result [facility] Provider LAB BLOOD ORDERABLES Yoselin robles Result Performing Organization Address City/[facility] Co de Phone Number EXTERNAL * Hepatic Function Panel (04/04/2018 8:15 PM EDT) Alkaline Phosphatase 181 U/L EXTERNAL ALT 29 U/L EXTERNAL AST 24 U/L EXTERNAL Total Bilirubin 0.3 0.1 - 1.4 mg/dL EXTERNAL Bilirubin, Direct 0.1 0.01 - 0.4 mg/dL EXTERNAL Total Protein 6.6 6.4 - 8.2 g/dL EXTERNAL Plasma specimen (specimen) Result [facility] Provider LAB BLOOD ORDERABLES Yoselin robles Result EXTERNAL documented in this encounter Visit Diagnoses Not on filedocumented in this encounter Additional Health Concerns Assessment Noted Time PHQ-9 Depression Total Score: 0 12/06/19 18 3:00 PM EDT documented as of this encounter Care Teams Soda Column Operator Relationship Specialty Start Date End Date Edgar Fournier MD [address] [place] [address] [place] [address] PCP - General 08/18/17 06/23/21 Maile Valles, JANA Txp Post Coordinator Transplant Hepatology 11/07/17 Jack Ordoñez MD [address] [place] [phone] Consulting Physician Transplant Hepatology 01/05/18 documented as of this encounter
--- OUTSIDE RECORDS SUMMARY | 2024-07-12 12:52 | XMS_ITS | Encounter Summary ---
Author Organization Health Address [facility] [place] [address] Care Team Providers Care Chocolate Finisher Name Role Phone Edgar Fournier MD Primary Care Provider [phone] Maile Valles RN Unavailable Unavail able Jack Ordoñez MD Unavailable [phone] Source Comments This information has been [...] release of HIV test results or diagnoses. [id number] Health Encounter Details Date Type Department Care Team (Late st Contact Info) Description 04/03/2018 Orders Only [facility] [address] Maile Valles, JAAN S/P liver transplant ([facility]-H[facility]) (Primary Dx); Immunosuppression ([facility]-H[facility]) Social History Tobacco Use Types Packs/Day [...] [facility] Interventional Radiology [address] [place] [address] Herve Carrillo MD [facility] [address]200 [place] [address] documented as of this encounter Results * Cytomegalovirus DNA, Quant, RT PCR (12/13/2018 12:32 PM EDT) Pathologist [facility] CMV DNA Qnt <137 IU/mL 12/14/2018 5:22 PM EDT [facility] Comment:Test methodology for CMV quantification is an FDA-approved nucleic acid amplification assay. The Lower Limit of Quantitation (LLOQ) is 137 IU/mL; the linear range is 137- 9,100,000 IU/mL. The limit of Detection is (LoD) is 91 IU/mL. Log10 CMV Qn DNA PI See Note log 10 IU/mL 12/14/2018 5:22 PM EDT [facility] Comment: CMV DNA has been detected, but not quantifiable. ??CMV DNA is below the LLoQ for the assay. ??Log IU/mL cannot be calculated. Plasma specimen (specimen) 12/13/2018 12:32 PM EDT 12/13/2018 2:34 PM EDT Narrative [facility] - 12/14/2018 5:22 PM EDT Please fax results to [phone]. us Jack Ordoñez MD LAB BLOOD ORDERABLES Final Re sult [facility] [address] [place] [address], [facility] [[email or web address]] * Cytomegalovirus DNA, Quant, RT PCR (05/07/2018 10:40 AM EDT) CMV DNA Qnt Not Detected IU/mL 05/08/2018 8:28 PM EDT [email or web address] Comment:Test methodology for CMV quantification is an FDA-approved nucleic acid amplification assay. The Lower Limit of Quantitation (LLOQ) is 137 IU/mL; the linear range is 137- 9,100,000 IU/mL. The limit of Detection is (LoD) is 91 IU/mL. Log10 CMV Qn DNA PI See Note log 10 IU/mL 05/08/2018 8:28 PM EDT [email or web address] Comment:CMV DNA not detected Plasma specimen (specimen) 05/07/2018 10:40 AM EDT 05/07/2018 11:54 AM EDT Narrative [email or web address] - 05/08/2018 8:28 PM EDT Please fax results to [phone]. us Jack Ordoñez MD LAB BLOOD ORDERABLES Final Re sult [facility] [address] [place] [address] documented in this encounter Visit Diagnoses Diagnosis S/P liver transplant (CMS-HCC)- Primary Immunosuppression (CMS-HCC) Transplanted liver (CMS-HCC) Liver replaced by transplant Drug therapy Encounter for other specified aftercare S/P liver transplant (CMS-HCC) Immunosuppression (CMS-HCC) Transplanted liver (CMS-HCC) Liver replaced by transplant Drug therapy Encounter for other specified aftercare S/P liver transplant (CMS-HCC) Immunosuppression (CMS-HCC) documented in this encounter Additional Health Concerns Assessment Noted Time PHQ-9 Depression Total Score: 0 12/06/19 18 3:00 PM EDT documented as of this encounter Care Teams Chocolate Finisher Relationship Specialty Start Date End Date Edgar Fournier MD [address] [place] [address] PCP - General 08/18/17 06/23/21 Maile Valles, RN Txp Post Coordinator Transplant Hepatology 11/07/17 Jack Ordoñez MD [address] [place] [address] Consulting Physician Transplant Hepatology 01/05/18 documented as of this encounter
--- OUTSIDE RECORDS SUMMARY | 2024-07-12 12:52 | XMS_ITS | Encounter Summary ---
Author Organization Health Address [facility] [place] [address] Care Team Providers Care Oracle Erp Developer Name Role Phone Edgar Fournier MD Primary Care Provider [phone] Maile Valles RN Unavailable Unavail able Jack Ordoñez MD Unavailable [phone] Source Comments This information has been [...] release of HIV test results or diagnoses. [id number] Encounter Details Date Type Department Care Team (Late st Contact Info) Description 04/02/2018 Chart Note [facility] [phone] Latrice Brice MA Social History Tobacco Use [...] 07/15/2024 9:00 AM EST Hospital Encounter [facility] Interventional Radiology [address] [place] [phone] Herve Carrillo MD [address] [place] [address] [place] [address] documented as of this encounter Procedures Procedure Name Priority Date/Time Associated Diagnosis Comments HEPATIC FUNCTION PANEL Routine 03/27/2018 9:40 AM EDT CYCLOSPORINE LEVEL Routine 03/27/2018 9: 40 AM EDT documented in this encounter Results * Cyclosporine level (03/27/2018 9:40 AM EDT) Cyclosporine, Blood 60 EXTERNAL Whole blood specimen (specimen) Historical Provider LAB BLOOD ORDERABLES Yoselin l Result Performing Organization Address City/[facility]/ZIP Co de Phone Number EXTERNAL * Hepatic Function Panel (03/27/2018 9:40 AM EDT) Alkaline Phosphatase 218 U/L EXTERNAL ALT 57 U/L EXTERNAL AST 25 U/L EXTERNAL Total Bilirubin 0.2 0.1 - [...] documented as of this encounter Care Teams Oracle Erp Developer Relationship Specialty Start Date End Date Green, Edgar J, MD [address] [place] [address] PCP - General 08/18/17 06/23/21 Maile Valles, RN Txp Post Coordinator Transplant Hepatology 11/07/17 Jack Ordoñez MD [facility]8 [place] [address] Consulting Physician Transplant Hepatology 01/05/18 documented as of this encounter
--- OUTSIDE RECORDS SUMMARY | 2024-07-12 12:52 | XMS_ITS | Encounter Summary ---
Author Organization Health Address [address] [place] [address] Care Team Providers Care Youth Director Name Role Phone Edgar Fournier MD Primary Care Provider [phone] Maile Valles RN Unavailable Unavail able Jack Ordoñez MD Unavailable [phone] Source Comments This information has been [...] release of HIV test results or diagnoses. [id number] Encounter Details Date Type Department Care Team (Late st Contact Info) Description 04/20/2018 Abstract [facility] Gastroenterology at [place] [facility] [address] [place] [phone] Yoli Mcbride MA Social History Tobacco Use [...] Encounter [facility] Interventional Radiology [address] [place] [phone] Herve Carrillo MD [address] [place] [address] [place] [address] documented as of this encounter Procedures Procedure Name Priority Date/Time Associated Diagnosis Comments CBC Routine 04/19/2018 9:50 AM EDT GLUCOSE, RANDOM Routine 04/19/2018 9:50 AM EDT HEPATIC FUNCTION PANEL Routine 04/19/2018 9:50 AM EDT RENAL FUNCTION PANEL W/O EGFR Routine 04/19/2018 9:50 AM EDT documented in this encounter Results * (ABNORMAL) Glucose, random (04/19/2018 9:50 AM EDT) Glucose 211(A) 60 - 200 mg/dL Plasma specimen (specimen) Historical Provider LAB BLOOD ORDERABLES Yoselin l Result * Hepatic function panel (04/19/2018 9:50 AM EDT) Alkaline Phosphatase 247 U/L ALT 51 U/L AST 20 U/L Total Bilirubin 0.3 0.1 - 1.4 mg/dL Protein, Total 6.9 Blood specimen (specimen) Historical Provider LAB BLOOD ORDERABLES Yoselin l Result * (ABNORMAL) Renal Function Panel w/o EGFR (04/19/2018 9:50 AM EDT) Creatinine 2.3 BUN 39(A) 4 - 21 mg/dL Potassium 4.3 3.4 - 5.3 mmol/L Sodium 142 137 - 147 mmol/L Chloride 105 99 - 108 mmol/L Phosphorus 4.1 2.5 - 4.9 mg/dL Magnesium 1.9 1.6 - 2.4 mg/dL Calcium 8.6(A) 8.7 - 10.7 mg/dL Blood specimen (specimen) Historical Provider LAB BLOOD ORDERABLES Yoselin l Result * (ABNORMAL) CBC (04/19/2018 9:50 AM EDT) Hemoglobin 9.9(A) 13.5 - 17.5 g/dL Hematocrit 28.6(A) 41 - 53 % MCH 31.4 26.0 - 34.0 pg MCV 90.8 82.0 - 108.0 fL WBC 3 10^3/mL Platelets 232 Whole blood specimen (specimen) Historical Provider LAB BLOOD ORDERABLES Yoselin l Result documented in this encounter Visit Diagnoses Not on filedocumented in this encounter Additional Health Concerns Assessment Noted Time PHQ-9 Depression Total Score: 0 12/06/19 18 3:00 PM EDT documented as of this encounter Care Teams Youth Director Relationship Specialty Start Date End Date Edgar Fournier MD [address] [place] [address] [place] [address] PCP - General 08/18/17 06/23/21 Maile Valles, RN Txp Post Coordinator Transplant Hepatology 11/07/17 Jack Ordoñez MD [facility] [place] [address] Consulting Physician Transplant Hepatology 01/05/18 documented as of this encounter
--- OUTSIDE RECORDS SUMMARY | 2024-07-12 12:52 | XMS_ITS | Encounter Summary ---
Author Organization Health Address [facility] [place] [address] Care Team Providers Care Corporate Planning Manager Name Role Phone Edgar Fournier MD Primary Care Provider [phone] Maile Valles RN Unavailable Unavail able Jack Ordoñez MD Unavailable [phone] Source Comments This information has been [...] release of HIV test results or diagnoses. [id number] Encounter Details Date Type Department Care Team (Late st Contact Info) Description 03/19/2018 Chart Note [facility] [place] [phone] Maile Valles, JANA TIEDI updated. Social History [...] of this encounter Progress Notes * Maile Jean Baptiste RN - 03/19/2018 9:10 AM EDT TIEDI updated. documented in this encounter Plan of Treatment Upcoming Encounters Date Type Department Care Team (Late st Contact Info) Description 07/15/2024 9:00 AM EST Hospital Encounter [facility] Interventional Radiology [address] [place] [phone] Herve Carrillo MD 3[address] [facility] 3[address] [place] [phone] documented as of this encounter Visit Diagnoses Not on filedocumented in this encounter Additional Health Concerns Assessment Noted Time PHQ-9 Depression Total Score: 0 12/06/19 18 3:00 PM EDT documented as of this encounter Care Teams Corporate Planning Manager Relationship Specialty Start Date End Date Edgar Fournier MD [address] [place] [address] [place] [address] PCP - General 08/18/17 06/23/21 Maile Valles RN Txp Post Coordinator Transplant Hepatology 11/07/17 Jack Ordoñez MD [address] [place] [phone] Consulting Physician Transplant Hepatology 01/05/18 documented as of this encounter
--- OUTSIDE RECORDS SUMMARY | 2024-07-12 12:52 | XMS_ITS | Encounter Summary ---
Author Organization Health Address [facility] [place] [address] Care Team Providers Care Executive Chairman Name Role Phone Edgar Fournier MD Primary Care Provider [phone] Maile Valles RN Unavailable Unavail able Jack Ordoñez MD Unavailable [phone] Source Comments This information has been [...] release of HIV test results or diagnoses. [id number] Encounter Details Date Type Department Care Team (Late st Contact Info) Description 03/16/2018 Telephone [facility] Liver Transplant at Outpatient [address] [address] Maile Valles, JANA Social History [...] Encounter - Maile Jean Baptiste RN - 03/16/2018 9:47 AM EDT Patient called. Stated that on Monday, he had L lower back pain that radiated to the midline of his groin/abdomen and blood in urine. Went to PCP. PCP was setting up for a CT scan when patient broke into a sweat head to toe. Sweating stabilized and patient felt better, though still in pain. PCP sent to ED where CT indicated there might be a stone in the urethra. Patient went to bathroom in ED, urinated, lots of blood and pain. No stone was identified, but may have passed a stone. On , the same pain came back, radiating to the groin and his testicles. He went back to the ED. Prostate exam OK. Testicles OK on exam. Urology appointment scheduled for 03/23/18. Patient stated that ED doctor explained he may have spermutitis (?) and that a swab would have to be done to test for this. (Perhaps epididymitis?) Patient is seeing PCP today for further testing. Will forward to [facility] Provider for communication. documented in this encounter Plan of Treatment Upcoming Encounters Date Type Department Care Team (Late st Contact Info) Description 07/15/2024 9:00 AM [facility] Hospital Encounter [facility] Interventional Radiology [address] [place] [address] Herve Carrillo MD [address] [facility] Ed [address] [place] [phone] documented as of this encounter Visit Diagnoses Not on filedocumented in this encounter Additional Health Concerns Assessment Noted Time PHQ-9 Depression Total Score: 0 12/06/19 18 3:00 PM EDT documented as of this encounter Care Teams Executive Chairman Relationship Specialty Start Date End Date Edgar Fournier [place] [address] PCP - General 08/18/17 06/23/21 Maile Valles, RN Txp Post Coordinator Transplant Hepatology 11/07/17 Jack Ordoñez MD [facility] [place] [phone] Consulting Physician Transplant Hepatology 01/05/18 documented as of this encounter
--- OUTSIDE RECORDS SUMMARY | 2024-07-12 12:52 | XMS_ITS | Encounter Summary ---
Author Organization [facility] Address [facility] [place] [address] Care Team Providers Care Audio Visual Facilities Engineer Name Role Phone Edgar Fournier MD Primary Care Provider [phone] Maile Olmedo RN Unavailable Unavail able Jack Balderrama MD Unavailable [phone] Source Comments This information has been [...] release of HIV test results or diagnoses. [id number] Reason for Visit * Reason Comments Results 04/04/2018 labs Encounter Details Date Type Department Care Team (Late st Contact Info) Description 04/04/[address] [facility] Liver Transplant at Outpatient [address] [address] Maile Olmedo, JANA Results (04/04/2018 labs) Social History Tobacco Use Types Packs/Day Years [...] Progress Notes * Maile Olmedo RN - 04/11/2018 8:22 AM EDTAddended by: MAILE OLMEDO on: 04/11/2018 08:22 AM Modules accepted: Orders * Maile Olmedo RN - 04/10/2018 3:40 PM EDTAddended by: MAILE OLMEDO on: 04/10/2018 03:40 PM Modules accepted: Orders * Maile Olmedo RN - 04/10/2018 2:18 PM EDTAddended by: MAILE OLMEDO on: 04/10/2018 02:18 PM Modules accepted: Orders * Jack Balderrama MD - 04/10/2018 2:08 PM EDTAddended by: BROOKLYN BALDERRAMA on: 04/10/2018 02:08 PM Modules accepted: Orders * Maile Olmedo RN - 04/10/2018 1:52 PM EDTAddended by: MAILE OLMEDO on: 04/10/2018 01:52 PM Modules accepted: Orders documented in this encounter Miscellaneous Notes * Telephone Encounter - Maile Olmedo RN - 04/10/2018 4:32 PM EDT Prescription sent [facility] for help with PA - will be forwarded to the necessary pharmacy for patient. Discussed plan with patient who verbalized understanding. * Telephone Encounter - Maile Olmedo RN - 04/10/2018 2:34 PM EDT Attempted to contact patient to discuss plan. Multiple phone numbers went to voicemail with no messaging service set up. This coordinator will continue to attempt to contact patient. * Telephone Encounter - Maile Olmedo RN - 04/10/2018 1:[address] Balderrama: start at 2 mg daily Will order medication to local pharmacy. This coordinator will plan discuss with patient. * Telephone Encounter - Maile Olmedo RN - 04/10/2018 7:[address] Balderrama: Given rising Cr and low CsA levels, would recommend switching back to tacrolimus. Would like to attempt once daily tacrolimus. Also, would increase cellcept to 750 twice daily. * Telephone Encounter - Maile Olmedo RN - 04/09/2018 10:24 AM EDT CSA level 43, goal 100-150. Will route to Txp Provider for review and recommendations. * Telephone Encounter - Sharyn Villalba RN - 04/06/2018 2:51 PM EDT Lab results from 04/04/2018 reviewed with following abnormalities noted: improved LFTs, slightly worsened renal panel, stable but low WBC/ANC. Immunosuppression pending therapeutic per [facility] liver transplant guidelines or custom goal as documented in prior clinic visits. Will forward to provider for review and recommendations. Mag 1.7 Spoke with patient Cyclo level pending Otherwise liver numbers improving and kidney numbers a little worse Has local nephrology appt on 04/09/2018 Patient believes the oral antibiotics did not cure the infection and may need IV antibiotics for the infection. Asked patient to keep office updated. * Telephone Encounter - Maile Olmedo RN - 04/04/2018 8:42 AM EDT Patient called to review recent labs. Patient recently treated for epididymitis. Took Levaquin which didn't seem to work, then cephalexin. Antibiotic course complete. Patient concerned that the epididymitis is not resolved. He has seen urologist and has f/u next month. 24 hour urine pending for urology. He has appointment with local straw hat brim cutter operator on 04/09. Patient plans to repeat standing labs for Liver Txp tonight or tomorrow morning. documented in this encounter Plan of Treatment Upcoming Encounters Date Type Department Care Team (Late st Contact Info) Description 07/15/2024 9:00 AM EST Hospital Encounter [facility] Interventional Radiology [address] [place] [phone] Herve Carrillo MD [address] [facility] [address] [place] [phone] documented as of this encounter Visit Diagnoses Diagnosis S/P liver transplant (CMS-HCC)- Primary Immunosuppression (CMS-HCC) documented in this encounter Additional Health Concerns Assessment Noted Time PHQ-9 Depression Total Score: 0 12/06/19 18 3:00 PM EDT documented as of this encounter Care Teams Audio Visual Facilities Engineer Relationship Specialty Start Date End Date Edgar Fournier MD [address] [place] [address] [place] [address] PCP - General 08/18/17 06/23/21 Maile Olmedo, RN Txp Post Coordinator Transplant Hepatology 11/07/17 Jack Balderrama MD [address] [place] [phone] Consulting Physician Transplant Hepatology 01/05/18 documented as of this encounter
--- OUTSIDE RECORDS SUMMARY | 2024-07-12 12:52 | XMS_ITS | Encounter Summary ---
Author Organization Health Address [facility] [place] [address] Care Team Providers Care Airways Operations Specialist Name Role Phone Edgar Fournier MD Primary Care Provider [phone] Maile Valles RN Unavailable Unavail able Jack Ordoñez MD Unavailable [phone] Source Comments This information has been [...] release of HIV test results or diagnoses. [id number] Encounter Details Date Type Department Care Team (Late st Contact Info) Description 02/28/2018 Telephone [place] Liver Transplant at Outpatient [address] [address] Latrice Brice MA Social History [...] - Maile Jean Baptiste RN - 02/28/2018 2:52 PM EDT Reviewed chart. 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 Vitamin D was discontinued based on patient's vitamin D level; supplementation not needed. Adjusted gabapentin dose in chart. Updated other meds in chart based on visit with PCP. Patient's PCP has taken over management of all non-transplant related medications (including insulin). * Telephone Encounter - Latrice Brice MA - 02/28/2018 2:48 PM EDT Aiden called asking questions after his PCP visit yesterday. Questions his PCP had regarding why did Transplant take him off Vitamin D supplement he was taken once a week also PCP wants to know if Aiden can stop taking aspirin and was not sure why transplant had him on aspirin. Aiden also stated his medication Gabapentin was increased to 1200 TID will route message to receiving coordinator JANA Gr to advise patient and ask about insulin. documented in this encounter Plan of Treatment Upcoming Encounters Date Type Department Care Team (Late st Contact Info) Description 07/15/2024 9:00 AM EST Hospital Encounter [place] Interventional Radiology [address] [place] [phone] Herve Carrillo MD 2776 [facility] 3200 [place] [phone] documented as of this encounter Visit Diagnoses Not on filedocumented in this encounter Additional Health Concerns Assessment Noted Time PHQ-9 Depression Total Score: 0 12/06/19 18 3:00 PM EDT documented as of this encounter Care Teams Airways Operations Specialist Relationship Specialty Start Date End Date Edgar Fournier MD [address] [place] [phone] PCP - General 08/18/17 06/23/21 Maile Vlales, RN Txp Post Coordinator Transplant Hepatology 11/07/17 Jack Ordoñez MD [facility]8 [place] [phone] Consulting Physician Transplant Hepatology 01/05/18 documented as of this encounter
--- OUTSIDE RECORDS SUMMARY | 2024-07-12 12:52 | XMS_ITS | Encounter Summary ---
Author Organization Health Address [facility] [place] [address] Care Team Providers Care Farmworker Pullet Farm Name Role Phone Edgar Fournier MD Primary Care Provider [phone] Maile Valles RN Unavailable Unavail able Jack Ordoñez MD Unavailable [phone] Source Comments This information has been [...] release of HIV test results or diagnoses. [id number] Encounter Details Date Type Department Care Team (Late st Contact Info) Description 03/28/2018 Chart Note [facility] [phone] Beth Irizarry MA Social History Tobacco Use [...] Description 07/15/2024 9:00 AM EST Hospital Encounter [facility] Interventional Radiology [address] [place] [phone] Herve Carrillo MD [address] [place] [address] documented as of this encounter Procedures Procedure Name Priority Date/Time Associated Diagnosis Comments CBC AND DIFFERENTIAL Routine 03/27/2018 9:40 AM EDT MAGNESIUM Routine 03/27/2018 9:40 AM EDT RENAL FUNCTION PANEL W/O EGFR Routine 03/27/2018 9:40 AM EDT documented in this encounter Results * (ABNORMAL) Magnesium (03/27/2018 9:40 AM EDT) Magnesium 1.2(A) 1.6 - 2.4 mg/dL EXTERNAL Plasma specimen (specimen) us Historical Provider LAB BLOOD ORDERABLES Yoselin l Result EXTERNAL * (ABNORMAL) Renal Function Panel w/o EGFR (03/27/2018 9:40 AM EDT) BUN/Creatinine Ratio 20.5 EXTERNAL Glucose 177 mg/dL EXTERNAL BUN 43(A) 4 - 21 mg/dL EXTERNAL CO2 32(A) 13 - 22 mmol/L EXTERNAL Creatinine 2.1(A) 0.6 - 1.3 mg/dL EXTERNAL Potassium 5.2 3.4 - 5.3 mmol/L EXTERNAL Sodium 139 137 - 147 mmol/L EXTERNAL Chloride 103 99 - 108 mmol/L EXTERNAL Phosphorus 4.8 2.5 - 4.9 mg/dL EXTERNAL Calcium 9 8.7 - 10.7 mg/dL EXTERNAL EGFR 37 mg/dL EXTERNAL Blood specimen (specimen) Historical Provider LAB BLOOD ORDERABLES Yoselin l Result EXTERNAL * (ABNORMAL) CBC and differential (03/27/2018 9:40 AM EDT) Hemoglobin 10.5(A) 13.5 - 17.5 g/dL EXTERNAL Hematocrit 30.1(A) 41 - 53 % EXTERNAL RDW 13 11.5 - 14.5 % EXTERNAL Lymphocytes Absolute 0.8 /??L EXTERNAL Monocytes Absolute 0.1 /??L EXTERNAL Eosinophils Absolute 0.1 /??L EXTERNAL Basophils Absolute 0 /??L EXTERNAL Neutrophils Relative 65 46 - 78 % EXTERNAL Lymphocytes Relative 27 18 - 52 % EXTERNAL Monocytes Relative 4 3 - 10 % EXTERNAL Eosinophils Relative 2 0 - 6 % EXTERNAL Basophils Relative 0 0 - 3 % EXTERNAL Neutrophils Absolute 1.8 /??L EXTERNAL MCH 31.6 26.0 - 34.0 pg EXTERNAL MCHC 34.9 30 - 37 g/dL EXTERNAL MCV 90.7 82.0 - 108.0 fL EXTERNAL Platelets 178 K/??L EXTERNAL RBC 3.32(A) 4.50 - 5.90 10^6/??L EXTERNAL WBC 2.8 10^3/mL EXTERNAL Blood specimen (specimen) Historical Provider LAB BLOOD ORDERABLES Yoselin l Result EXTERNAL documented in this encounter Visit Diagnoses Not on filedocumented in this encounter Additional Health Concerns Assessment Noted Time PHQ-9 Depression Total Score: 0 12/06/19 18 3:00 PM EDT documented as of this encounter Care Teams Farmworker Pullet Farm Relationship Specialty Start Date End Date Edgar Fournier MD [address] [place] [address] [place] [address] PCP - General 08/18/17 06/23/21 Maile Valles, JANA Txp Post Coordinator Transplant Hepatology 11/07/17 Jack Ordoñez MD [address] [place], [place] [phone] Consulting Physician Transplant Hepatology 01/05/18 documented as of this encounter
--- OUTSIDE RECORDS SUMMARY | 2024-07-12 12:52 | XMS_ITS | Encounter Summary ---
Author Organization [facility] Address [address] [place] [address] Care Team Providers Care Director Statistical Programming Name Role Phone Edgar Fournier MD Primary Care Provider [phone] Maile Valles RN Unavailable Unavail able Jack Ordoñez MD Unavailable [phone] Source Comments This information has been [...] release of HIV test results or diagnoses. [id number] Reason for Visit * Reason Comments Medication Refill Encounter Details Date Type Department Care Team (Late st Contact Info) Description 04/07/2018 Refill [facility] Liver Transplant at Outpatient Pavilion [address] [place] [address] Bere Feng, MEDICAL CHIEF TECHNICIAN [facility] 3[address] [place] [phone] Social History Tobacco Use Types Packs/Day Years [...] [facility] [address] [place] [phone] Herve Carrillo MD 3130 [facility] 3[address] [place] [phone] documented as of this encounter Visit Diagnoses Not on filedocumented in this encounter Additional Health Concerns Assessment Noted Time PHQ-9 Depression Total Score: 0 12/06/19 18 3:00 PM EDT documented as of this encounter Care Teams Director Statistical Programming Relationship Specialty Start Date End Date Edgar Fournier MD [address] [place] [address] [place] [address] PCP - General 08/18/17 06/23/21 Maile Valles, RN Txp Post Coordinator Transplant Hepatology 11/07/17 Jack Ordoñez MD [address] [place] [phone] Consulting Physician Transplant Hepatology 01/05/18 documented as of this encounter
--- OUTSIDE RECORDS SUMMARY | 2024-07-12 12:52 | XMS_ITS | Encounter Summary ---
Author Organization [facility] Address [address] [place] [address] Care Team Providers Care Crackling Press Operator Name Role Phone Edgar Fournier MD Primary Care Provider [phone] Maile Valles RN Unavailable Unavail able Jack Ordoñez MD Unavailable [phone] Source Comments This information has been [...] release of HIV test results or diagnoses. [id number] Health Encounter Details Date Type Department Care Team (Late st Contact Info) Description 04/11/2018 Chart Note [facility] [address] [place] [phone] Judi Khan RPh [facility] Specialty Pharmacy Note Social History Tobacco Use [...] of this encounter Progress Notes * Judi Khan RPh - 04/11/2018 9:32 AM EDT Health Specialty Pharmacy Note ?? Prescription received for: Envarsus XR 1 mg tablets ?? Insurance rejection message: Prior authorization required ?? Insurance prior authorization process started via: CoverMyMeds (duarte: [id number]) ?? Using EPIC chart as reference, provided requested information to insurance including: diagnosis code, labs, treatment history and transplant status ?? Claim status: approved through 04/11/2019. ?? Routed note to txp coordinator for review. documented in this encounter Plan of Treatment Upcoming Encounters Date Type Department Care Team (Late st Contact Info) Description 07/15/2024 9:00 AM EST Hospital Encounter [facility] Interventional Radiology [address] [place] [phone] Herve Carrillo MD 3130 [facility] 3200 Surgery [place] [phone] documented as of this encounter Visit Diagnoses Not on filedocumented in this encounter Additional Health Concerns Assessment Noted Time PHQ-9 Depression Total Score: 0 12/06/19 18 3:00 PM EDT documented as of this encounter Care Teams Crackling Press Operator Relationship Specialty Start Date End Date Edgar Fournier MD [address] [place] [address] [place] [address] PCP - General 08/18/17 06/23/21 Maile Valles, JANA Txp Post Coordinator Transplant Hepatology 11/07/17 Jack Ordoñez MD [address] [place] [phone] Consulting Physician Transplant Hepatology 01/05/18 documented as of this encounter
--- OUTSIDE RECORDS SUMMARY | 2024-07-12 12:52 | XMS_ITS | Encounter Summary ---
Author Organization Health Address [facility] [place] [address] Care Team Providers Care Photograph Tinter Name Role Phone Edgar Fournier MD Primary Care Provider [phone] Maile Valles RN Unavailable Unavail able Jack Ordoñez MD Unavailable [phone] Source Comments This information has been [...] release of HIV test results or diagnoses. [id number] Encounter Details Date Type Department Care Team (Late st Contact Info) Description 02/19/2018 Chart Note [facility] [phone] Maile Valles, JANA Social History Tobacco Use [...] [facility] Inter[facility]iology [address] [place] [phone] Herve Carrillo MD 3130 [facility] [address] [place] [address] documented as of this encounter Visit Diagnoses Not on filedocumented in this encounter Additional Health Concerns Assessment Noted Time PHQ-9 Depression Total Score: 0 12/06/19 18 3:00 PM EDT documented as of this encounter Care Teams Photograph Tinter Relationship Specialty Start Date End Date Edgar Fournier MD [address] [place] [address] [place] [address] PCP - General 08/18/17 06/23/21 Maile Valles, JANA Txp Post Coordinator Transplant Hepatology 11/07/17 Jack Ordoñ[place] [address] [place] [phone] Consulting Physician Transplant Hepatology 01/05/18 documented as of this encounter
--- OUTSIDE RECORDS SUMMARY | 2024-07-12 12:52 | XMS_ITS | Encounter Summary ---
Author Organization Health Address [facility] [place] [address] Care Team Providers Care Fuse Maker Name Role Phone Edgar Fournier MD Primary Care Provider [phone] Maile Valles RN Unavailable Unavail able Jack Ordoñez MD Unavailable [phone] Source Comments This information has been [...] release of HIV test results or diagnoses. [id number] Encounter Details Date Type Department Care Team (Late st Contact Info) Description 04/19/2018 Chart Note [facility] [phone] Beth Irizarry MA Social History Tobacco Use [...] Hospital Encounter [facility] Interventional Radiology [address] [place] [phone] Herve Carrillo MD [address] [facility] [address] [facility] [place] [address] documented as of this encounter Procedures Procedure Name Priority Date/Time Associated Diagnosis Comments HEPATIC FUNCTION PANEL Routine 04/19/2018 9:50 AM EDT CBC AND DIFFERENTIAL Routine 04/19/2018 9:50 AM EDT MAGNESIUM Routine 04/19/2018 9:50 AM EDT RENAL FUNCTION PANEL W/O EGFR Routine 04/19/2018 9:50 AM EDT documented in this encounter Results * Magnesium (04/19/2018 9:50 AM EDT) Magnesium 1.9 1.6 - 2.4 mg/dL EXTERNAL Plasma specimen (specimen) us Historical Provider LAB BLOOD ORDERABLES Yoselin l Result EXTERNAL * (ABNORMAL) Renal Function Panel w/o EGFR (04/19/2018 9:50 AM EDT) BUN/Creatinine Ratio 17.0 EXTERNAL Glucose 211 mg/dL EXTERNAL BUN 39(A) 4 - 21 mg/dL EXTERNAL CO2 27(A) 13 - 22 mmol/L EXTERNAL Creatinine 2.3(A) 0.6 - 1.3 mg/dL EXTERNAL Potassium 4.3 3.4 - 5.3 mmol/L EXTERNAL Sodium 142 137 - 147 mmol/L EXTERNAL Chloride 105 99 - 108 mmol/L EXTERNAL Albumin 3.5 EXTERNAL Phosphorus 4.1 2.5 - 4.9 mg/dL EXTERNAL Calcium 8.6(A) 8.7 - 10.7 mg/dL EXTERNAL EGFR 33 mg/dL EXTERNAL Blood specimen (specimen) Historical Provider LAB BLOOD ORDERABLES Yoselin robles Result Performing Organization Address [facility] Co de Phone Number EXTERNAL * (ABNORMAL) CBC and differential (04/19/2018 9:50 AM EDT) Hemoglobin 9.9(A) 13.5 - 17.5 g/dL EXTERNAL Hematocrit 28.6(A) 41 - 53 % EXTERNAL RDW 12.9 11.5 - 14.5 % EXTERNAL Lymphocytes Absolute 0.8 /??L EXTERNAL Monocytes Absolute 0.4 /??L EXTERNAL Eosinophils Absolute 0 /??L EXTERNAL Basophils Absolute 0 /??L EXTERNAL Neutrophils Relative 59 46 - 78 % EXTERNAL Lymphocytes Relative 26 18 - 52 % EXTERNAL Monocytes Relative 13(A) 3 - 10 % EXTERNAL Eosinophils Relative 0 0 - 6 % EXTERNAL Basophils Relative 0 0 - 3 % EXTERNAL Neutrophils Absolute 1.8 /??L EXTERNAL MCH 31.4 26.0 - 34.0 pg EXTERNAL MCHC 34.6 30 - 37 g/dL EXTERNAL MCV 90.8 82.0 - 108.0 fL EXTERNAL Platelets 232 K/??L EXTERNAL RBC 3.15(A) 4.50 - 5.90 10^6/??L EXTERNAL WBC 3 10^3/mL EXTERNAL Blood specimen (specimen) Historical Provider LAB BLOOD ORDERABLES Yoselin robles Result Performing Organization Address [facility] de Phone Number EXTERNAL * Hepatic Function Panel (04/19/2018 9:50 AM EDT) Alkaline Phosphatase 247 U/L EXTERNAL ALT 51 U/L EXTERNAL AST 20 U/L EXTERNAL Total Bilirubin 0.3 0.1 - 1.4 mg/dL EXTERNAL Bilirubin, Direct 0.1 0.01 - 0.4 mg/dL EXTERNAL Total Protein 6.9 6.4 - 8.2 g/dL EXTERNAL Plasma specimen (specimen) us Historical Provider LAB BLOOD ORDERABLES Yoselin robles Result EXTERNAL documented in this encounter Visit Diagnoses Not on filedocumented in this encounter Additional Health Concerns Assessment Noted Time PHQ-9 Depression Total Score: 0 12/06/19 18 3:00 PM EDT documented as of this encounter Care Teams Fuse Maker Relationship Specialty Start Date End Date Edgar Fournier MD [address] [place] [address] [place] [address] PCP - General 08/18/17 06/23/21 Maile Valles, JANA Txp Post Coordinator Transplant Hepatology 11/07/17 Jack Ordoñez MD [address] [place] [phone] Consulting Physician Transplant Hepatology 01/05/18 documented as of this encounter
--- OUTSIDE RECORDS SUMMARY | 2024-07-12 12:52 | XMS_ITS | Encounter Summary ---
Author Organization Address [address] [place] [id number] Care Team Providers Care Cyanide Furnace Operator Name Role Phone Edgar Fournier MD Primary Care Provider [phone] Maile Valles RN Unavailable Unavail able Jack Ordoñez MD Unavailable [phone] Source Comments This information has been [...] release of HIV test results or diagnoses. [id number] Reason for Referral * Imaging/Cardiovascular Scan (Routine) - Closed Specialty Diagnoses / Procedures Referred By Contac t Referred To Contact Radiology Diagnoses Chest pain, unspecified type SOB (shortness of breath) Procedures NM Myocardial perf stress and rest SPECT Edgar Fournier MD [address] [place] [phone] Phone: tel: Referral ID Status Reason Start Date Expiration Date Visits Re quested Visits Authorized [id number] Closed 05/07/2018 07/05/2018 4 4 Encounter Details Date Type Department Care Team (Late st Contact Info) Description 04/23/2018 Orders Only [facility] [address] [place] [phone] Edgar Fournier MD [address] [place] [address] Dr [address] [place] [phone] Chest pain, unspecified type (Primary Dx); SOB (shortness of breath) Social [...] 07/15/2024 9:00 AM EST Hospital Encounter [facility] Interventional Radiology [address] [place] [phone] Herve Carrillo MD [address] [facility] [address] [place] [phone] documented as of this encounter Results * NM Myocardial perf [...] patient at rest (heart rate 75, blood [id number]) cardiac SPECT imaging was performed one hour [...] System IMG NM ORDERABLES Final R esult documented in this encounter Visit Diagnoses Diagnosis Chest pain, unspecified type- Primary SOB (shortness of breath) Shortness of breath Chest pain, unspecified type SOB (shortness of breath) Shortness of breath documented in this encounter Additional Health Concerns Assessment Noted Time PHQ-9 Depression Total Score: 0 12/06/19 18 3:00 PM EDT documented as of this encounter Care Teams Cyanide Furnace Operator Relationship Specialty Start Date End Date Edgar Fournier MD [address] [place] [address] [place] [phone] PCP - General 08/18/17 06/23/21 Maile Valles, AJNA Txp Post Coordinator Transplant Hepatology 11/07/17 Jack Ordoñez MD [address] [place] [phone] Consulting Physician Transplant Hepatology 01/05/18 documented as of this encounter
--- OUTSIDE RECORDS SUMMARY | 2024-07-12 12:52 | XMS_ITS | Encounter Summary ---
Author Organization Health Address [facility] [place] [address] Care Team Providers Care Staff Mine Warfare Officer Name Role Phone Edgar Fournier MD Primary Care Provider [phone] Maile Valles RN Unavailable Unavail able Jack Ordoñez MD Unavailable [phone] Source Comments This information has been [...] release of HIV test results or diagnoses. [id number] Encounter Details Date Type Department Care Team (Late st Contact Info) Description 03/20/2018 Telephone [facility] Liver Transplant at Outpatient [address] [phone] Beth Irizarry MA Social History [...] encounter Miscellaneous Notes * Telephone Encounter - Beth Irizarry - 03/20/2018 4:32 PM EDT Pt is complaining of increased pain, in his side, and his lower abdomen and he said he's been to the Urologist. He also said he's been thinking about going to the ER because they Urologist said he believes the blood in his urine and his pain has something to do with his Kidneys. He asked if he wentto the ER if he would see a kidney Doctor and I told him it was all depends on what they find in his evaluation. documented in this encounter Plan of Treatment Upcoming Encounters Date Type Department Care Team (Late st Contact Info) Description 07/15/2024 9:00 AM EST Hospital Encounter [facility] Interventional Radiology [address] [place] [phone] Herve Carrillo MD [address] [facility] 3[address] [place] [phone] documented as of this encounter Visit Diagnoses Not on filedocumented in this encounter Additional Health Concerns Assessment Noted Time PHQ-9 Depression Total Score: 0 12/06/19 18 3:00 PM EDT documented as of this encounter Care Teams Staff Mine Warfare Officer Relationship Specialty Start Date End Date Edgar Fournier MD [address] [place] [address] [place] [address] PCP - General 08/18/17 06/23/21 Maile Valles, JANA Txp Post Coordinator Transplant Hepatology 11/07/17 Jack Ordoñez MD [address] [place] [phone] Consulting Physician Transplant Hepatology 01/05/18 documented as of this encounter
--- OUTSIDE RECORDS SUMMARY | 2024-07-12 12:52 | XMS_ITS | Encounter Summary ---
Author Organization [facility] Address [facility] [place] [address] Care Team Providers Care Aircraft Inspection Record Clerk Name Role Phone Edgar Fournier MD Primary Care Provider [phone] Maile Valles RN Unavailable Unavail able Jack Ordoñez MD Unavailable [phone] Source Comments This information has been [...] release of HIV test results or diagnoses. [id number] Reason for Visit * Reason Comments Liver Transplant Follow-up Encounter Details Date Type Department Care Team (Late st Contact Info) Description 02/26/2018 9:05 AM EDT Office Visit [facility] Liver Transplant at Outpatient [facility] [address] [place] [phone] Jack Ordoñez MD [address] [place] [phone] Liver transplanted (CMS-HCC) (Primary Dx); Immunosuppression (CMS-HCC); Encounter for therapeutic drug level monitoring Social History Tobacco Use Types Packs/Day [...] Reading Time Taken Comments Blood Pressure 168/89 02/26/2018 9:28 AM EDT Pulse 70 02/26/2018 7:00 AM EDT Temperature 36.8 ??C (98.2 ??F) 02/26/2018 7:00 AM ED T Respiratory Rate 18 02/26/2018 7:00 AM EDT Oxygen Saturation 98% 02/26/2018 7:00 AM EDT Inhaled Oxygen Concentration 98% 02/26/2018 7 :00 AM EDT Weight 117.9 kg (260 lb) 02/26/2018 7:00 AM EDT Height 170.2 cm (5' 7 ) 02/26/2018 7:00 AM EDT Body Mass Index 40.72 02/26/2018 7:00 AM EDT documented in this encounter Patient Instructions * Patient Instructions* Jack Ordoñez MD - 02/26/2018 9:05 AM EDT Plan: 1. Reduce cyclosporine to 100 mg twice daily. 2. Continue Cellcept 500 mg twice daily 3. Would check labs [...] with your blood pressure with your PCP. Will stop Ergocalciferol. 9. Continue Entecavir daily for HBcAb+ liver. 10. Return in 10 weeks. documented in this encounter Progress Notes * Connie Hand MA - 02/26/2018 9:05 AM EDT Review of Systems Constitutional: Negative. HENT: Negative. Eyes: Negative. Respiratory: Negative. Cardiovascular: Negative. Gastrointestinal: Negative. Genitourinary: Negative. Musculoskeletal: Positive for back pain. Skin: Negative. Neurological: Positive for tingling. Endo/Heme/Allergies: Negative. Psychiatric/Behavioral: Negative. Patient states his only problem is his blood pressures. * Jack Ordoñez MD - 02/26/2018 9:05 AM EDT Subjective: Aiden Stauffer is a 43 y.o. 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 The patient was last seen in December 2017. He received a [facility] high risk donor, who was HBV ALEXANDRA +, HCV Ab+, ALEXANDRA negative and therefore will be on lifelong entecavir. Post-operative course was complicated by altered mental status and severe tremors thought to be related to tacrolimus toxicity, as well as hypoxia. He received one dose of thymoglobulin . Liver tests are normal on cyclosporine 150 mg twice daily (switched due to neurologic toxicity from tacrolimus) and cellcept 500 mg twice daily. He did not lower dose as instructed. Antimicrobial prophylaxis includes pentamadine (bactrim d/c due to renal dysfunction, stop date 04/07/18) and valcyte (stop date 04/07/18). Cr 1.9, Hgb 11.4. Co-morbidities include hypertension and DM for which [...] He presents today for followup. He is overall doing very well and is very pleased with how well he feels. He is active and eating well. He is concerned about his BP. The [...] clear and moist. No oropharyngeal exudate. Eyes: Conjunctivae and EOM are normal. Pupils are equal, round, and reactive to light. Right eye exhibits no discharge. Left eye [...] sexual partners be vaccinated to Hep B. Reduce cyclosporine to 100 mg twice daily due torenal dysfunction. Continue Cellcept 500 mg twice daily Would check labs every [...] ratio on annual basis with your PCP. Please discuss with your blood pressure with your PCP. Will stop Ergocalciferol. Continue Entecavir daily for HBV ALEXANDRA positive. Return in 10 weeks. Plan: 1. Reduce cyclosporine to 100 mg twice daily. 2. Continue Cellcept 500 mg twice daily 3. Would check labs [...] with your blood pressure with your PCP. Will stop Ergocalciferol. 9. Continue Entecavir daily for HBcAb+ liver. 10. Return in 10 weeks. * Darrian SeniorD - 02/26/2018 9:05 AM EDT Transplant Pharmacist Assessment and Recommendations: Current Outpatient Prescriptions Medication Sig ??? aspirin 81 MG chewable tablet Chew 1 tablet (81 mg total) by mouth daily with breakfast. ??? blood sugar diagnostic Strp Use to test blood sugar up to 4 times a day. Diagnosis for use: E 9.65. For use with One Touch Verio meters. ??? blood-glucose meter (Notable SolutionsUCH VERIO SYSTEM) Misc Use as instructed. ??? carBAMazepine (TEGRETOL) 200 mg tablet Take 200 mg by mouth 2 times a day. ??? carvedilol (COREG) 25 MG tablet Take 2 tablets (50 mg total) by mouth 2 times a day with meals.(Patient taking differently: Take 25 mg by mouth 2 times a day with meals. ) ??? cycloSPORINE modified (NEORAL/GENGRAF) 25 MG capsule Take 4 capsules (100 mg total) by mouth 2 times a day. Indications: Prevention of Liver Transplant Rejection ??? entecavir (BARACLUDE) 1 MG tablet Take 1 tablet (1 mg total) by mouth daily. ??? esomeprazole (NEXIUM) 40 MG capsule Take 1 capsule (40 mg total) by mouth every morning before breakfast. (Patient taking differently: Take 40 mg by mouth daily as needed. Taking every other day ) ??? flash glucose scanning reader (FREESTYLE LEONEL READER) [facility] Use 1 each as directed See Admin Instructions. [employer] Freestyle Leonel [place] ??? flash glucose sensor (FREESTYLE LEONEL SENSOR) Kit Use 1 kit as directed See Admin Instructions.Zacarias Freestyle Leonel Sensor Use 1 kit (sensor) every 10 days as directed ??? flash glucose sensor Kit Use 1 each as directed every 30 days. Every 10 days ??? gabapentin (NEURONTIN) 600 MG tablet Take 900 mg by mouth 3 times a day. ??? insulin lispro (HUMALOG KWIKPEN INSULIN) 100 unit/mL InPn Administer insulin with meals per sliding scale: glucose 150-199=2 u, 200-249=4 u, 250-299=7 u, 300-349=10 u, >349= 12 units ??? insulin NPH isoph U-100 human (HUMULIN [...] ??? mycophenolate (CELLCEPT) 250 mg capsule Take 2 capsules (500 mg total) by mouth 2 times a day. ??? NIFEdipine (ADALAT CC) 90 MG 24 hr tablet Take 90 mg by mouth daily. ??? pen needle, diabetic 32 gauge x /32 Ndle Use as directed to inject insulin 4 times daily. ??? pen needle, diabetic 32 gauge x 532 Ndle For use with insulin pen. Use as instructed. ??? pentamidine (PENTAM) 300 mg inhalation solution Inhale 300 mg into the lungs every 30 days. ??? valGANciclovir (VALCYTE) 450 mg tablet Take 2 tablets (900 mg total) by mouth daily. No current facility-administered medications for this visit. Immunosuppression: THYMO BRIDGE Perioperative immunosuppression regimen included: steroid taper, MMF, tacrolimus and Thymoglobulin (175mg x 1 dose on 10/09/17) Currently on cyclosporine 150??mg bid and mycophenolate 500mg bid. ??Cyclo dose decreased to 125mg bid last visit (01/02/18) however patient reports phone call with Maile last week he thought he shouldbe on 150mg bid, so has been taking this dose for approximately 1 week. Reason for CsA use: switched on 10/23 due to significant tremors. Reports tremors improved significantly with cyclosporine. Administers medications at: 9AM, 3PM and 9PM. ??Immunosuppression at 9AM and 9PM. Goal CSA level per protocol is 100-150 ng/mL. Latest available cyclosporine level: Cyclosporine, Blood Date Value Ref Range Status 02/13/2018 60 Final Rejection in the past 12 months: none Prophylaxis:?? Viral (Valcyte 900mg daily): 6??months??per protocol (D+/R-). ??Discontinue: 04/07/18. ??NOTE: was instructed per txp team to discontinue 11/23; was restarted the next visit 12/05. PCP : 6??months per protocol. ??Discontinue: 04/07/18. Initially switched from Bactim to Pentamidinedue to hyperkalemia. Then patient wanted to switch to oral therapy so dapsone initiated, but he reports swelling so wants to switch back to Pentamidine. Had dose of pentamidine in February, last one scheduled for today. ASA: hepatic artery reconstruction Anti-HBcAb +/ALEXANDRA + donor: No HBIG given since HepB surface antibody 171. On entecavir 1 mg daily for life ?? Blood Sugars: diabetic prior to transplant. PCP managing Defer to PCP for management ?? Blood pressure: on coreg and nifedipine 168/89 today. Reports not happy with BP control. Hasn't taken medications yet in clinic today. Defer to PCP for management. ?? Leg/feet cramping: Magnesium oxide and SloMag: discontinued per Dr. Rossi recommendation Gabapentin: was discontinued due to renal function and changed to Lyrica. Patient reports adverse effects (bloating and increased appetite) so discontinued. Reports will restart gabapentin today. Adherence: Patient reports missing 0??doses in the past 7 days The following barriers to adherence have been identified: None It is my assessment that the patient demonstrates good??adherence and medication understanding. ?? assists with medication management. ??She reviewed medication card with me in clinic today. Of note: patient adjusted cyclosporine dose although coordinator denies instructing to do so. ?? Recommendations: 1. Cyclosporine: decrease dose in setting of renal dysfunction. 2. Pentamidine: dose today 3. Vitamin D = level 38.3 (01/02/18). Consider discontinuing weekly supplementation and have patientdiscuss with PCP. 4. BP: to see PCP for management 5. BS: to see PCP for management * Maile Jean Baptiste RN - 02/26/2018 9:05 AM EDT After visit summary including patient instructions [...] Hospital Encounter [facility] Interventional Radiology [address] [place] [phone] Herve Carrillo MD [address] [facility] [address] [facility] [place] [phone] documented as of this encounter Visit Diagnoses Diagnosis Liver transplanted ([facility]-HCC)- Primary Liver replaced by transplant Immunosuppression (CMS-HCC) Encounter for therapeutic drug level monitoring documented in this encounter Additional Health Concerns Assessment Noted Time PHQ-9 Depression Total Score: 0 12/06/19 18 3:00 PM EDT documented as of this encounter Care Teams Aircraft Inspection Record Clerk Relationship Specialty Start Date End Date Edgar Fournier MD [address] [place] [address] [place] [phone] PCP - General 08/18/17 06/23/21 Maile Valles, JANA Txp Post Coordinator Transplant Hepatology 11/07/17 Jack Ordoñez MD [address] [place] [phone] Consulting Physician Transplant Hepatology 01/05/18 documented as of this encounter
--- OUTSIDE RECORDS SUMMARY | 2024-07-12 12:52 | XMS_ITS | Encounter Summary ---
Author Organization Health Address [facility] [place] [address] Care Team Providers Care Avp Name Role Phone Edgar Fournier MD Primary Care Provider [phone] Maile Valles RN Unavailable Unavail able Jack Ordoñez MD Unavailable [phone] Source Comments This information has been [...] release of HIV test results or diagnoses. [id number] Encounter Details Date Type Department Care Team (Late st Contact Info) Description 04/03/2018 Telephone [facility] Liver Transplant at Outpatient [address] [phone] Beth Irizarry MA Social History [...] * Telephone Encounter - Beth Irizarry - 04/03/2018 4:57 PM EDT Pt called asking about Cyclosporin level. documented in this encounter Plan of Treatment Upcoming Encounters Date Type Department Care Team (Late st Contact Info) Description 07/15/2024 9:00 AM EST Hospital Encounter [facility] Interventional Radiology [address] [place] [phone] Herve Carrillo MD [address] [facility] 3[address] [place] [address] documented as of this encounter Visit Diagnoses Not on filedocumented in this encounter Additional Health Concerns Assessment Noted Time PHQ-9 Depression Total Score: 0 12/06/19 18 3:00 PM EDT documented as of this encounter Care Teams Avp Relationship Specialty Start Date End Date Edgar Fournier MD [address] [place] [address] PCP - General 08/18/17 06/23/21 Maile Valles, RN Txp Post Coordinator Transplant Hepatology 11/07/17 Jack Ordoñez MD [address] [place] [phone] Consulting Physician Transplant Hepatology 01/05/18 documented as of this encounter
--- OUTSIDE RECORDS SUMMARY | 2024-07-12 12:52 | XMS_ITS | Encounter Summary ---
Author Organization Health Address [facility] [place] [address] Care Team Providers Care Security Intelligence Analyst Name Role Phone Edgar Fournier MD Primary Care Provider [phone] Maile Valles RN Unavailable Unavail able Jack Ordoñez MD Unavailable [phone] Source Comments This information has been [...] release of HIV test results or diagnoses. [id number] Reason for Visit * Reason Onset Date Comments Results 04/19/2018 Encounter Details Date Type Department Care Team (Late st Contact Info) Description 04/19/2018 Refill [facility] Transplant at [facility] [address] [place] [phone] Beth Irizarry MA Immunosuppression ([facility]) Social History Tobacco Use Types Packs/Day [...] Telephone Encounter - Maile Valles RN - 04/19/2018 4:18 PM EDT Lab results from 04/19/18 reviewed with following abnormalities noted: Cr remains elebated at 2.3. Alk phos trending up. AST/ALT stable. Patient started Envarsus on 04/14. FK pending. documented in this encounter Plan of Treatment Upcoming Encounters Date Type Department Care Team (Late st Contact Info) Description 07/15/2024 9:00 AM EST Hospital Encounter [facility] Interventional Radiology [address] [place] [phone] Herve Carrillo MD 3130 [facility] 3[address] [facility] [place] [phone] documented as of this encounter Visit Diagnoses Diagnosis Immunosuppression (CMS-HCC) documented in this encounter Additional Health Concerns Assessment Noted Time PHQ-9 Depression Total Score: 0 12/06/19 18 3:00 PM EDT documented as of this encounter Care Teams Security Intelligence Analyst Relationship Specialty Start Date End Date Edgar Fournier MD [address] [place] [phone] PCP - General 08/18/17 06/23/21 Maile Valles, JANA Txp Post Coordinator Transplant Hepatology 11/07/17 Jack Ordoñez MD [address] [place] [place] [phone] Consulting Physician Transplant Hepatology 01/05/18 documented as of this encounter
--- OUTSIDE RECORDS SUMMARY | 2024-07-12 12:52 | XMS_ITS | Encounter Summary ---
Author Organization [facility] Address [address] [place] [address] Care Team Providers Care Mechanical Estimator Name Role Phone Edgar Fournier MD Primary Care Provider [phone] Maile Valles RN Unavailable Unavail able Jack Ordoñez MD Unavailable [phone] Source Comments This information has been [...] release of HIV test results or diagnoses. [id number] Reason for Visit * Reason Onset Date Comments Results 04/19/2018 Encounter Details Date Type Department Care Team (Late st Contact Info) Description 04/19/2018 Telephone [facility] Liver Transplant at Outpatient [address] [phone] Maile Valles, JANA Results Social [...] Encounter - Maile Valles RN - 04/19/2018 4:25 PM EDT Patient's current immunosuppression regimen: Envarsus 2 mg daily MMF 500 mg BID * Telephone Encounter - Maile Valles RN - 04/19/2018 4:25 PM EDT Lab results from 04/19/18 reviewed with following abnormalities noted: Cr remains elevated at 2.3. Alk phos trending up. AST/ALT stable. Patient started Envarsus on 04/14. FK pending. documented in this encounter Plan of Treatment Upcoming Encounters Date Type Department Care Team (Late st Contact Info) Description 07/15/2024 9:00 AM [facility] Hospital Encounter [facility] Interventional Radiology [address] [place] [phone] Herve Carrillo MD 3130 [facility] 3200 [place] [phone] documented as of this encounter Visit Diagnoses Not on filedocumented in this encounter Additional Health Concerns Assessment Noted Time PHQ-9 Depression Total Score: 0 12/06/19 18 3:00 PM EDT documented as of this encounter Care Teams Mechanical Estimator Relationship Specialty Start Date End Date Edgar Fournier MD [address] [place] [address] [place] [address] PCP - General 08/18/17 06/23/21 Maile Valles, JANA Txp Post Coordinator Transplant Hepatology 11/07/17 Jack Ordoñez MD [address] [place] [phone] Consulting Physician Transplant Hepatology 01/05/18 documented as of this encounter
--- OUTSIDE RECORDS SUMMARY | 2024-07-12 12:52 | XMS_ITS | Encounter Summary ---
Author Organization [facility] Address [facility] [place] [address] Care Team Providers Care Skate Boarder Name Role Phone Edgar Fournier MD Primary Care Provider [phone] Maile Valles RN Unavailable Unavail able Jack Ordoñez MD Unavailable [phone] Source Comments This information has been [...] release of HIV test results or diagnoses. [id number] Reason for Visit * Reason Onset Date Comments Medication Refill 04/17/2018 Encounter Details Date Type Department Care Team (Late st Contact Info) Description 04/17/2018 Refill [facility] Liver Transplant at Outpatient [address] [phone] Latrice Brice MA Immunosuppression ([facility]-HCC) Social History Tobacco Use Types Packs/Day [...] Encounter [facility] Interventional Radiology [address] [place] [phone] Herve Carrillo MD 3130 [facility] 3200 [place] [phone] documented as of this encounter Visit Diagnoses Diagnosis Immunosuppression (CMS-HCC) documented in this encounter Additional Health Concerns Assessment Noted Time PHQ-9 Depression Total Score: 0 12/06/19 18 3:00 PM EDT documented as of this encounter Care Teams Skate Boarder Relationship Specialty Start Date End Date Edgar Fournier MD [address] [place] [address] [place] [address] PCP - General 08/18/17 06/23/21 Maile Valles, JANA Txp Post Coordinator Transplant Hepatology 11/07/17 Jack Ordoñ[place] [address] [place] [phone] Consulting Physician Transplant Hepatology 01/05/18 documented as of this encounter
--- OUTSIDE RECORDS SUMMARY | 2024-07-12 12:52 | XMS_ITS | Encounter Summary ---
Author Organization Health Address [address] [place] [address] Care Team Providers Care Track Layer Head Name Role Phone Edgar Fournier MD Primary Care Provider [phone] Maile Valles RN Unavailable Unavail able Jack Ordoñez MD Unavailable [phone] Source Comments This information has been [...] release of HIV test results or diagnoses. [id number] Encounter Details Date Type Department Care Team (Late st Contact Info) Description 03/27/2018 Abstract [facility] [id number] [place] [phone] Yoli Mcbride MA Social History Tobacco Use [...] EST Hospital Encounter [facility] Interventional Radiology [address] [place] [phone] Herve Carrillo MD [address] [facility] [address] [place] [address] documented as of this encounter Procedures Procedure Name Priority Date/Time Associated Diagnosis Comments CBC Routine 03/27/2018 9:40 AM EDT GLUCOSE, RANDOM Routine 03/27/2018 9:40 AM EDT RENAL FUNCTION PANEL W/O EGFR Routine 03/27/2018 9:40 AM EDT documented in this encounter Results * Glucose, random (03/27/2018 9:40 AM EDT) Glucose 177 60 - 200 mg/dL Plasma specimen (specimen) Historical Provider LAB BLOOD ORDERABLES Yoselin l Result * (ABNORMAL) Renal Function Panel w/o EGFR (03/27/2018 9:40 AM EDT) Creatinine 2.1 BUN 43(A) 4 - 21 mg/dL Potassium 5.2 3.4 - 5.3 mmol/L Sodium 139 137 - 147 mmol/L Chloride 103 99 - 108 mmol/L Phosphorus 4.8 2.5 - 4.9 mg/dL Magnesium 1.2(A) 1.6 - 2.4 mg/dL Calcium 9 8.7 - 10.7 mg/dL Blood specimen (specimen) us Historical Provider LAB BLOOD ORDERABLES Yoselin l Result * (ABNORMAL) CBC (03/27/2018 9:40 AM EDT) Hemoglobin 10.5(A) 13.5 - 17.5 g/dL Hematocrit 30.1(A) 41 - 53 % MCH 31.6 26.0 - 34.0 pg MCV 90.7 82.0 - 108.0 fL WBC 2.8 10^3/mL Platelets 178 Whole blood specimen (specimen) us Historical Provider LAB BLOOD ORDERABLES Yoselin l Result documented in this encounter Visit Diagnoses Not on filedocumented in this encounter Additional Health Concerns Assessment Noted Time PHQ-9 Depression Total Score: 0 12/06/19 18 3:00 PM EDT documented as of this encounter Care Teams Track Layer Head Relationship Specialty Start Date End Date Edgar Fournier MD [address] [place] [address] [place] [phone] PCP - General 08/18/17 06/23/21 Maile Valles, JANA Txp Post Coordinator Transplant Hepatology 11/07/17 Jack Ordoñez MD [address] [place] [phone] Consulting Physician Transplant Hepatology 01/05/18 documented as of this encounter
--- OUTSIDE RECORDS SUMMARY | 2024-07-12 12:53 | XMS_ITS | Encounter Summary ---
Author Organization Health Address [facility] [place] [address] Care Team Providers Care Communications Advisor Name Role Phone Edgar Fournier MD Primary Care Provider [phone] Maile Valles RN Unavailable Unavail able Source Comments This information has been disclosed [...] release of HIV test results or diagnoses. [id number] Health Encounter Details Date Type Department Care Team (Late st Contact Info) Description 12/27/[address] [facility] Liver Transplant at Outpatient [address] [phone] Maile Valles, RN Social History Tobacco Use Types Packs/Day [...] Telephone Encounter - Latrice Brice MA - 12/29/2017 1:09 PM EDT This MA spoke with Aiden regarding diet citrus arslan tea, per transplant it is okay for Aiden to drink diet citrus arslan tea. Aiden stated he had some questions concerning tenderness around scar area. Aiden stated it is completely healed it is just very tender and he would like suggestions of anything he may be able to use that may help speed up healing. Per tour coordinator JANA Mahoney it will be addressed at follow up appointment on 01-02-18. Aiden verbalized understanding. This MA advised Aiden to write down any questions or issues when they come to his mind so he can bring it all to follow up appointment to have it all addressed at once. Aiden agreed. * Telephone Encounter - Maru Flores RN - 12/28/2017 8:35 AM EDT Txp MA to advise patient OK to drink diet citrus arslan tea. * Telephone Encounter - Maile Jean Baptiste RN - 12/27/2017 3:33 PM EDT Patient called regarding missing yesterday's clinic appointment. Informed patient he was rescheduled for 01/02 @ 9:30 AM, he was agreeable to this plan. He will repeat labs that morning. Patient also missed pentamidine appointment. Appointment rescheduled for 01/03, however will determine in clinic appointment on 01/02 if patient can switch back to Bactrim or Dapsone. G6PD will be drawn on 01/02. Patient saw PCP yesterday. Weaning off of gabapentin and put on Mirapex. Patient also drinking diet citrus Arslan tea, but wants to make sure this is OK. documented in this encounter Plan of Treatment Upcoming Encounters Date Type Department Care Team (Late st Contact Info) Description 07/15/2024 9:00 AM EST Hospital Encounter [facility] Interventional Radiology [address] [place] [phone] Herve Carrillo MD [address] [place] [phone] documented as of this encounter Visit Diagnoses Not on filedocumented in this encounter Additional Health Concerns Assessment Noted Time PHQ-9 Depression Total Score: 0 12/06/19 18 3:00 PM EDT documented as of this encounter Care Teams Communications Advisor Relationship Specialty Start Date End Date Edgar Fournier MD [address] [place] [address] [place] [phone] PCP - General 08/18/17 06/23/21 Maile Valles, RN Txp Post Coordinator Transplant Hepatology 11/07/17 documented as of this encounter
--- OUTSIDE RECORDS SUMMARY | 2024-07-12 12:53 | XMS_ITS | Encounter Summary ---
Author Organization Health Address [facility] [place] [address] Care Team Providers Care Drug Coordinator Name Role Phone Edgar Fournier MD Primary Care Provider [phone] Maile Valles RN Unavailable Unavail able Jack Ordoñze MD Unavailable [phone] Source Comments This information has been [...] release of HIV test results or diagnoses. [id number] Encounter Details Date Type Department Care Team (Late st Contact Info) Description 02/19/2018 Chart Note [facility] [phone] Beth Irizarry MA Social History Tobacco Use [...] [facility] Inter[facility] Radiology [address] [place] [address] Herve Carrillo MD 3130 [facility] [address] [place] [address] documented as of this encounter Procedures Procedure Name Priority Date/Time Associated Diagnosis Comments CYCLOSPORINE LEVEL Routine 02/13/2018 10 :44 AM EDT documented in this encounter Results * Cyclosporine level (02/13/2018 10:44 AM EDT) Cyclosporine, Blood 60 EXTERNAL Whole blood specimen (specimen) us Historical Provider LAB BLOOD ORDERABLES Yoselin l Result EXTERNAL documented in this encounter Visit Diagnoses Not on filedocumented in this encounter Additional Health Concerns Assessment Noted Time PHQ-9 Depression Total Score: 0 12/06/19 18 3:00 PM EDT documented as of this encounter Care Teams Drug Coordinator Relationship Specialty Start Date End Date Edgar Fournier MD [address] [place] [address] [place] [address] PCP - General 08/18/17 06/23/21 Maile Valles, JANA Txp Post Coordinator Transplant Hepatology 11/07/17 Jack Ordoñez MD [facility] [place] [address] Consulting Physician Transplant Hepatology 01/05/18 documented as of this encounter
--- OUTSIDE RECORDS SUMMARY | 2024-07-12 12:53 | XMS_ITS | Encounter Summary ---
Author Organization Health Address [facility]0 [place] [address] Care Team Providers Care Fireproof Door Assembler Name Role Phone Edgar Fournier MD Primary Care Provider [phone] Maile Valles RN Unavailable Unavail able Jack Ordoñez MD Unavailable [phone] Source Comments This information has been [...] release of HIV test results or diagnoses. [id number] Health Encounter Details Date Type Department Care Team (Late st Contact Info) Description 12/22/2017 Chart Note [facility] [phone] Latrice Brice MA Aldolase 6.0 Social History Tobacco Use Types Packs/Day Years [...] Progress Notes * Latrice Brice MA - 12/22/2017 12:25 PM EDT Aldolase 6.0 M-spike Asymmetrical gamma EPNOTE Protein electrophoresis scan will follow via computer, mail, or range management specialist delivery PE INTER Serum protein electrophoresis shows an asymmetrical gamma region which may represent the presence of a paraprotein. Recommend serum immunofixation electrophoresis to rule out a plasma cell dyscrasia, if clinically indicated Protein electro and interpret Total protein serum 6.9 Albumin 3.5 Alpha_1_globulin 0.3 Alpha_2_globulin 0.8 Beta globulin 1.2 Gamma globulin 1.1 M-spike Not observed Total globulin 3.4 A/g ratio 1.0 documented in this encounter Plan of Treatment Upcoming Encounters Date Type Department Care Team (Late st Contact Info) Description 07/15/2024 9:00 AM [facility] Hospital Encounter [facility] Interventional Radiology [address] [place] [address] Herve Carrillo MD 3130 [facility] 3200 [place] [address] documented as of this encounter Procedures Procedure Name Priority Date/Time Associated Diagnosis Comments CYCLOSPORINE LEVEL Routine 12/20/2017 9: 58 AM EDT documented in this encounter Results * Cyclosporine level (12/20/2017 9:58 AM EDT) Cyclosporine, Blood 112 EXTERNAL Whole blood specimen (specimen) us Historical Provider LAB BLOOD ORDERABLES Yoselin robles Result EXTERNAL documented in this encounter Visit Diagnoses Not on filedocumented in this encounter Additional Health Concerns Assessment Noted Time PHQ-9 Depression Total Score: 0 12/06/19 18 3:00 PM EDT documented as of this encounter Care Teams Fireproof Door Assembler Relationship Specialty Start Date End Date Edgar Fournier MD [address] [place] [phone] PCP - General 08/18/17 06/23/21 Maile Valles, RN Txp Post Coordinator Transplant Hepatology 11/07/17 Jack Ordoñez MD [address] [place] [address] Consulting Physician Transplant Hepatology 01/05/18 documented as of this encounter
--- OUTSIDE RECORDS SUMMARY | 2024-07-12 12:53 | XMS_ITS | Encounter Summary ---
Author Organization [facility] Address [facility] [place] [address] Care Team Providers Care Plug Wirer Name Role Phone Edgar Fournier MD Primary Care Provider [phone] Maile Valles RN Unavailable Unavail able Source [...] release of HIV test results or diagnoses. [id number] Health Reason for Visit * Reason Comments Labs Only Encounter Details Date Type Department Care Team (Late st Contact Info) Description 01/02/2018 9:25 AM EDT Specimen [facility] Outreach Lab [address] [place] [phone] Eleanor Casey PA Transplanted liver (CMS-HCC); Drug therapy; Low magnesium level; S/P liver transplant (CMS-HCC); Immunosuppression (CMS-HCC); Deferred diagnosis on axis I Social History Tobacco Use Types Packs/Day Years [...] Encounter [facility] Interventional Radiology [address] [place] [phone] Herve Carrillo MD [address] [place] [phone] documented as of this encounter Procedures Procedure Name Priority Date/Time Associated Diagnosis Comments SERUM PROT ELECTROPHORESIS,RFX IT Routine 01/02/2018 9:20 AM EDT Deferred diagnosis on axis I HEPATIC FUNCTION PANEL Routine 8 9:20 AM EDT Transplanted liver (CMS-HCC) Drug therapy RENAL FUNCTION PANEL W/EGFR Routine 01/02/2018 9:20 AM EDT Transplanted liver (CMS-HCC) Drug therapy HEPATITIS B VIRUS (HBV), REAL-TIME PCR, QUANT Routine 01/02/2018 9:20 AM EDT S/P liver transplant (CMS-HCC) Immunosuppression (CMS-HCC) CYCLOSPORINE LEVEL Routine 01/02/2018 9: 20 AM EDT Transplanted liver (CMS-HCC) Drug therapy GLUCOSE 6 PHOSPHATE DEHYDROGENASE Routine 01/02/2018 9:20 AM EDT S/P liver transplant (CMS-HCC) HEPATITIS C RNA, QUANTITATIVE PCR Routine 01/02/2018 9:20 AM EDT S/P liver transplant (CMS-HCC) Immunosuppression (CMS-HCC) VITAMIN D 25 HYDROXY Routine 01/02/2018 9:20 AM EDT S/P liver transplant (CMS-HCC) Immunosuppression (CMS-HCC) DIFFERENTIAL Routine 01/02/2018 9:20 AM EDT Transplanted liver (CMS-HCC) Drug therapy HIV 1+2 ANTIBODY/ANTIGEN WITH REFLEX Routine 01/02/2018 9:20 AM EDT S/P liver transplant (CMS-HCC) Immunosuppression (CMS-HCC) HEPATITIS B SURFACE ANTIBODY, QUANTITATIVE Routine 01/02/2018 9:20 AM EDT S/P liver transplant (CMS-HCC) Immunosuppression (CMS-HCC) HEPATITIS B SURFACE ANTIGEN Routine 01/02/2018 9:20 AM EDT S/P liver transplant (CMS-HCC) Immunosuppression (CMS-HCC) CBC Routine 01/02/2018 9:20 AM EDT Transplanted liver (CMS-HCC) Drug therapy MAGNESIUM Routine 01/02/2018 9:20 AM EDT Low magnesium level HEMOGLOBIN A1C Routine 01/02/2018 9:20 AM EDT S/P liver transplant (CMS-HCC) Immunosuppression (CMS-HCC) LIPID PANEL Routine 01/02/2018 9:20 AM EDT S/P liver transplant (CMS-HCC) Immunosuppression (CMS-HCC) documented in this encounter Results * (ABNORMAL) Serum Prot Electrophoresis w/Free Lt Chains, Reflex to IT (01/02/2018 9:20 AM EDT) IgG 1,080.0 751.0 - 1,560.0 mg/dL 01/04/2018 3:31 PM EDT [facility] IgM 106.0 46.0 - 304.0 mg/dL 01/04/2018 3:31 PM EDT [facility] Albumin, Protein Electrophoresis 3.8 3.70 - 4.90 g/dL 01/04/2018 3:31 PM EDT [facility] IgA 271.0 82.0 - 453.0 mg/dL 01/04/2018 3:31 PM EDT [facility] [place] 23.9(H) 3.3 - 19.4 mg/L 01/04/2018 3:31 PM EDT [facility] Alpha 1 0.4 0.20 - 0.40 g/dL 01/04/2018 3:31 PM EDT [facility] Alpha 2 0.7 0.50 - 1.00 g/dL 01/04/2018 3:31 PM EDT [facility] Lambda 24.9 5.7 - 26.3 mg/L 01/04/2018 3:31 PM EDT [facility] Beta 0.8 0.60 - 1.00 g/dL 01/04/2018 3:31 PM EDT [facility] Gamma Globulin 1.1 0.50 - 1.50 g/dL 01/04/2018 3:31 PM EDT [facility] [place]/Lambda Ratio 0.96 0.26 - 1.65 ratio 01/04/2018 3:31 PM EDT [facility] Total Protein (PE) 6.7 6.4 - 8.9 g/dL 01/02/2018 10:41 AM EDT [facility] M Corey 0.0 g/dL 01/04/2018 3:31 PM EDT [facility] Interpretation (PE) See Note 01/04 3:31 PM EDT [facility] Comment:Normal immunofixatio n. No monoclonal proteins detected. Reviewed by Brionna Cedeño MD and Trav Tierney, PhD. Serum specimen (specimen) 01/02/2018 9:20 AM EDT 01/02/2018 10:04 AM EDT us Provider Not In System LAB BLOOD ORDERABLES Yoselin l Result [facility] [address] [place] [address], [facility] * (ABNORMAL) Glucose 6 phosphate dehydrogenase, Quant (01/02/2018 9:20 AM EDT) RBC 3.34(L) 4.14 - 5.80 x10E6/uL 01/03/2018 3:13 AM EDT [facility] G-6-PD Qnt 406(H) 146 - 376 U/10E12 RBC 01/05/2018 2:52 AM EDT [facility] Comment: When decreased, G-6-PD, Quant. values are associated with acute hemolytic anemia when deficient individuals are exposed to oxidative stress, such as with certain medications (e.g., primaquine), infection, or ingestion of criss beans. Caution: In patients with acute hemolysis (e.g., abnormally low RBC values), testing for G-6-PD may be falsely normal because older erythrocytes with a higher enzyme deficiency have been hemolyzed. Young erythrocytes and reticulocytes have normal or near-normal enzyme activity. Normal values of G-6-PD may be measured for several weeks following a hemolytic event. Whole blood specimen (specimen) 01/02/2018 9:20 AM EDT 01/05/2018 3:10 AM EDT Narrative [facility] LAB - 01/05/2018 3:10 AM EDT PERFORMED AT: [facility] [address] [id number] DESTATICIZER FEEDER: Octavio Best, PhD ?? PHONE: [phone] PERFORMED AT: [facility] [address] [id number] DESTATICIZER FEEDER: Hilton Galvan MD ?? PHONE: [phone] Chetan Gallagher MD LAB BLOOD ORDERABLES Final Resu lt [facility] [address] [place] [address], [facility] * Vitamin D 25 hydroxy (01/02/2018 9:20 AM EDT) [facility] Vit D, 25-Hydroxy 38.3 30.0 - 100 ng/mL 01/02/2018 11:48 AM EDT [facility] Comment: Vitamin D deficiency has been defined by the [place] of [employer] (IOM) and an Endocrine Society practice guideline as a level of serum 25-OH Vitamin D less than 20 ng/mL. ?? The Endocrine Society went on to further define Vitamin D insufficiency as a level between 21-29 ng/mL. 1) ??IOM. 2011 Dietary reference intakes for calcium and D. ??[place] D.C: The National Academies Press 2) ??Juliana MONTOYA, Leidy NC, Khurram MACK, et al. ??Evaluation, treatment, and prevention of Vitamin D deficiency: an Endocrine Society clinical practice guideline. ??JCEM. ??2010; 96(2):1911-30. Serum specimen (specimen) 01/02/2018 9:20 AM EDT 01/02/2018 10:03 AM EDT America Vazquez MD LAB BLOOD ORDERABLES Fi nal Result Performing Organization Address [facility] de Phone Number [facility] [address] [facility]. [address] * Hemoglobin A1c (01/02/2018 9:20 AM EDT) Hemoglobin A1C 5.3 4.8 - 6.4 % 01/02/2018 11:06 AM EDT [facility] Comment: Hemoglobin (Hb) A1C Normal: ??4.8 - 5.6% Increased Risk for Diabetes: 5.7 - 6.4% Diagnostic Diabetes: ? >/= ?? 6.5% (Drawn on 2 separate occasions) Glycemic Control for Adults with Diabetes: <7.0% (DCCT / NGSP) Whole blood specimen (specimen) 01/02/2018 9:20 AM EDT 01/02/2018 10:00 AM EDT America Vazquez MD LAB BLOOD ORDERABLES Fi nal Result Performing Organization Address [facility] [employer] de Phone Number [facility] [address] [employer] [facility]. [address] * (ABNORMAL) Lipid Profile (01/02/2018 9:20 AM EDT) Cholesterol, Total 168 0 - 200 mg/dL 01/02/2018 10:40 AM EDT [facility] Triglycerides 274(H) 10 - 149 mg/dL 01/02/2018 10:40 AM EDT [facility] HDL 30(L) 60 - 92 mg/dL 01/02/2018 10:40 AM EDT [facility] Comment: ?LIPID PROFILE INTERPRETATION ?CHOLESTEROL,TOTAL(mg/dL) [...] Based on the guidlines of the National [facility] ? Education Program (NCEP). ? Assumes sample obtained after a 9- to 12- hour fast. LDL Cholesterol 83 mg/dL 8 10:40 AM EDT [facility] Plasma specimen (specimen) 01/02/2018 9:20 AM EDT 01/02/2018 10:03 AM EDT Narrative [facility]ALTH LAB - 01/02/2018 10:40 AM EDT Must the patient be fasting for this test?->No us America Vazquez MD LAB BLOOD ORDERABLES Fi nal Result [facility] [address] [place] [address], [facility] * HIV 1+2 Antibody/Antigen with Reflex (01/02/2018 9:20 AM EDT) HIV 1+2 AB/AGN Nonreactive Nonreactive 01/02/2018 11:34 AM EDT [facility] Serum specimen (specimen) 01/02/2018 9:20 AM EDT 01/02/2018 10:04 AM EDT Critical access hospital LAB - 01/02/2018 11:34 AM EDT HIV-1 p24 Antigen and HIV-1/HIV-2 Antibody not detected. America Vazquez MD LAB BLOOD ORDERABLES Fi nal Result Performing Organization Address [facility] de Phone Number [facility] [address] [facility]. [address] * Hepatitis B surface antigen (01/02/2018 9:20 AM EDT) Pathologist [facility] Hep B Surface Ag Nonreactive Nonreactive 01/02/2018 11:31 AM EDT [facility] Comment:Health Department no tified in accordance with reportable infectious disease guidelines. Serum specimen (specimen) 01/02/2018 9:20 AM EDT 01/02/2018 10:04 AM EDT Critical access hospital LAB - 01/02/2018 11:31 AM EDT Specimen is considered negative for HBsAg. America Vazquez MD LAB BLOOD ORDERABLES Fi nal Result Performing Organization Address [facility] de Phone Number [facility] [address] [facility]. [address] * Hepatitis C RNA, Quantitative PCR (01/02/2018 9:20 AM EDT) Pathologist [facility] [employer] Units Not Detected IU/mL 01/03/2018 2:08 PM EDT [facility] Comment:Test methodology for HCV RNA V2.0 quantification is a FDA-approved nucleic acid amplification assay. The Lower Limit of Quantitation (LLOQ) is 15 IU/mL; the linear range is 15- 100,000,000 IU/mL. The Limit of Detection (LoD) is 15 IU/mL. IU log10 See Note log 10 IU/mL 01/03/2018 2:08 PM EDT [facility] Comment: Unable to calculate result either because contributing result(s) are outside of reportable range or are not available. HCV RNA not detected. Serum specimen (specimen) 01/02/2018 9:20 AM EDT 01/02/2018 10:22 AM EDT America Vazquez MD LAB BLOOD ORDERABLES Fi nal Result Performing Organization Address [facility] de Phone Number [facility] [address] [facility]. [address] * (ABNORMAL) Hepatitis B Surface Antibody, Quantitative (01/02/2018 9:20 AM EDT) Pathologist [facility] HBSAB NUMBER [id number](H) 0.00 - 7.99 mIU/mL 01/02/2018 11:38 AM EDT [facility] Hep B S Ab Reactive( A) Nonreactive 01/02/2018 11:38 AM EDT [facility] Serum specimen (specimen) 01/02/2018 9:20 AM EDT 01/02/2018 10:04 AM EDT Narrative [facility] - 01/02/2018 11:38 AM EDT Individual is considered immune to HBV infection. America Vazquez MD LAB BLOOD ORDERABLES Fi nal Result Performing Organization Address [facility] de Phone Number [facility] [address] [facility]. [address] * Hepatitis B Virus (HBV), PCR, Quant (01/02/2018 9:20 AM EDT) Pathologist [facility] Hep B Viral DNA IU/ML Not Detected IU/mL 01/09/2018 7:04 PM EDT [facility] Comment:Test methodology for HBV DNA quantification is an FDA-approved nucleic acid amplification assay. The Lower Limit of Quantitation (LLOQ) is 20 IU/mL. The linear range of the assay is 20- 170,000,000 IU/mL. log 10 HBV as IU/mL See Note log 10 IU/mL 01/09/2018 7:04 PM EDT [facility] Comment: Unable to calculate result either because contributing result(s) are outside of reportable range or are not available. HBV DNA not detected. Serum specimen (specimen) 01/02/2018 9:20 AM EDT 01/02/2018 10:22 AM EDT us America Vazquez MD LAB BLOOD ORDERABLES Fi nal Result [facility] [address] [facility]. [address] * Magnesium (01/02/2018 9:20 AM EDT) Magnesium 1.6 1.5 - 2.5 mg/dL 01/02/2018 10:40 AM EDT [facility] Plasma specimen (specimen) 01/02/2018 9:20 AM EDT 01/02/2018 10:03 AM EDT us Chetan Gallagher MD LAB BLOOD ORDERABLES Final Resu lt Performing Organization Address [facility] de Phone Number [facility] [address] [facility]. [address] * Cyclosporine level (01/02/2018 9:20 AM EDT) Pathologist [facility] Cyclosporine, Blood 114 100 - 400 ng/mL 01/02/2018 1:03 PM EDT [facility] Comment: Detection limit: ??30 ng/mL. ??Performed via chemiluminescent microparticle immunoassay on the [employer] i1000. Whole blood specimen (specimen) 01/02/2018 9:20 AM EDT 01/02/2018 10:00 AM EDT Narrative [facility] - 01/02/2018 1:03 PM EDT Standing labs every Monday and . Please fax results to [phone]; critical results call [phone] us Eleanor TOTH LAB BLOOD ORDERABLES Final Result Performing Organization Address City/[facility]/ZIP Co de Phone Number [facility] [address] [facility]. [address] * (ABNORMAL) Renal Function Panel w/EGFR (01/02/2018 9:20 AM EDT) Sodium 141 133 - 146 mmol/L 01/02/2018 10:40 AM [facility] Potassium 4.6 3.5 - 5.3 mmol/L 01/02/2018 10:40 AM [facility] Chloride 108 98 - 110 mmol/L 01/02/2018 10:40 AM [facility] CO2 24 21 - 33 mmol/L 01/02/2018 10:40 AM [facility] Anion Gap 9 3 - 16 mmol/L 01/02/2018 10:40 AM [facility] BUN 39(H) 7 - 25 mg/dL 01/02/2018 10:40 AM [facility] Creatinine 1.66(H) 0.60 - 1.30 mg/dL 01/02/2018 10:40 AM [facility] Glucose 151(H) 70 - 100 mg/dL 01/02/2018 10:40 AM [facility] Calcium 9.6 8.6 - 10.3 mg/dL 01/02/2018 10:40 AM [facility] Phosphorus 4.0 2.1 - 4.7 mg/dL 01/02/2018 10:40 AM [facility] Albumin 4.1 3.5 - 5.7 g/dL 01/02/2018 10:40 AM [facility] Osmolality, Calculated 304 278 - 305 mOsm/kg 01/02/2018 10:40 AM [facility] eGFR AA CKD-EPI 58 See note. 8 10:40 AM [facility] eGFR NONAA CKD-EPI 50 See note. 01/02/2018 10:40 AM [facility] Plasma specimen (specimen) 01/02/2018 9:20 AM EDT 01/02/2018 10:03 AM ED Narrative [facility] - 01/02/2018 10:40 AM T Standing labs every Monday and . Please fax results to [phone]; Critical results call [phone] As of 10/13/2015 the estimated GFR is calculated from serum [...] equation to estimate glomerular filtration rate. ??Jennifer Freezer Person Med. 2009:150(9):604-12 us Eleanro TOTH LAB BLOOD ORDERABLES Final Result [facility] [address] * (ABNORMAL) Hepatic Function Panel (01/02/2018 9:20 AM EDT) Total Bilirubin 0.6 0.0 - 1.5 mg/dL 01/02/2018 10:40 AM EDT [facility] Bilirubin, Direct 0.13 0.00 - 0.40 mg/dL 01/02/2018 10:40 AM EDT [facility] AST 11(L) 13 - 39 U/L 01/02/2018 10:40 AM EDT [facility] ALT 10 7 - 52 U/L 01/02/2018 10:40 AM EDT [facility] Alkaline Phosphatase 106 36 - 125 U/L 01/02/2018 10:40 AM EDT [facility] Total Protein 6.7 6.4 - 8.9 g/dL 01/02/2018 10:40 AM EDT [facility] Albumin 4.1 3.5 - 5.7 g/dL 01/02/2018 10:40 AM EDT [facility] Bilirubin, Indirect 0.47 0.00 - 1.10 mg/dL 01/02/2018 10:40 AM EDT [facility] Plasma specimen (specimen) 01/02/2018 9:20 AM EDT 01/02/2018 10:03 AM EDT Narrative [facility] - 01/02/2018 10:40 AM EDT Standing labs every Monday and . Please fax results to [phone]; Critical results call [phone] us Eleanor TOTH LAB BLOOD ORDERABLES Final Result [facility] [address] [place] [address], [facility] * (ABNORMAL) Differential (01/02/2018 9:20 AM EDT) Neutrophils Relative 66.2 40.0 - 80.0 % 01/02/2018 10:17 AM EDT [facility] Lymphocytes Relative 27.0 15.0 - 45.0 % 01/02/2018 10:17 AM EDT [facility] Monocytes Relative 6.3 0.0 - 12.0 % 01/02/2018 10:17 AM EDT [facility] Eosinophils Relative 0.2 0.0 - 8.0 % 01/02/2018 10:17 AM EDT [facility] Basophils Relative 0.3 0.0 - 1.0 % 01/02/2018 10:17 AM EDT [facility] nRBC 0 0 - 0 /100 WBC 01/02/2018 10:17 AM EDT [facility] Neutrophils Absolute 2,714 1,500 - 7,800 /uL 01/02/2018 10:17 AM EDT [facility] Lymphocytes Absolute 1,107 850 - 3,900 /uL 01/02/2018 10:17 AM EDT [facility] Monocytes Absolute 258 200 - 950 /uL 01/02/2018 10:17 AM EDT [facility] Eosinophils Absolute 8(L) 15 - 500 /uL 01/02/2018 10:17 AM EDT [facility] Basophils Absolute 12 0 - 200 /uL 01/02/2018 10:17 AM EDT [facility] Whole blood specimen (specimen) 01/02/2018 9:20 AM EDT 01/02/2018 10:00 AM EDT Narrative [facility] - 01/02/2018 10:17 AM EDT Standing labs every Monday and . Please fax results to [phone]; Critical results call [phone] us Eleanor TOTH LAB BLOOD ORDERABLES Final Result [facility] [address] [place] [address], [facility] * (ABNORMAL) CBC (01/02/2018 9:20 AM EDT) WBC 4.1 3.8 - 10.8 10E3/uL 01/02/2018 10:17 AM EDT [facility] RBC 3.40(L) 4.20 - 5.80 10E6/uL 01/02/2018 10:17 AM EDT [facility] Hemoglobin 10.8(L) 13.2 - 17.1 g/dL 01/02/2018 10:17 AM EDT [facility] Hematocrit 32.0(L) 38.5 - 50.0 % 01/02/2018 10:17 AM EDT [facility] MCV 94.3 80.0 - 100.0 fL 01/02/2018 10:17 AM EDT [facility] MCH 31.8 27.0 - 33.0 pg 01/02/2018 10:17 AM EDT [facility] MCHC 33.8 32.0 - 36.0 g/dL 01/02/2018 10:17 AM EDT [facility] RDW 16.0(H) 11.0 - 15.0 % 01/02/2018 10:17 AM EDT [facility] Platelets 286 140 - 400 10E3/uL 01/02/2018 10:17 AM EDT [facility] MPV 6.8(L) 7.5 - 11.5 fL 01/02/2018 10:17 AM EDT [facility] Whole blood specimen (specimen) 01/02/2018 9:20 AM EDT 01/02/2018 10:00 AM EDT Narrative [facility] - 01/02/2018 10:17 AM EDT Standing labs every Monday and . Please fax results to [phone]; Critical results call [phone] us Eleanor TOTH LAB BLOOD ORDERABLES Final Result [facility] [address] [place] [address], [facility] documented in this encounter Visit Diagnoses Diagnosis Transplanted liver (CMS-HCC) Liver replaced by transplant Drug therapy Encounter for other specified aftercare Low magnesium level S/P liver transplant (CMS-HCC) Immunosuppression (CMS-HCC) Deferred diagnosis on axis I Other unknown and unspecified cause of morbidity or mortality documented in this encounter Additional Health Concerns Assessment Noted Time PHQ-9 Depression Total Score: 0 12/06/19 18 3:00 PM EDT documented as of this encounter Care Teams Plug Wirer Relationship Specialty Start Date End Date Edgar Fournier MD [address] [place] [address] PCP - General 08/18/17 06/23/21 Maile Valles, RN Txp Post Coordinator Transplant Hepatology 11/07/17 documented as of this encounter
--- OUTSIDE RECORDS SUMMARY | 2024-07-12 12:53 | XMS_ITS | Encounter Summary ---
Author Organization Health Address [facility] [place] [address] Care Team Providers Care Sales Operations Associate Name Role Phone Edgar Fournier MD Primary Care Provider [phone] Maile Valles RN Unavailable Unavail able Jack Ordoñez MD Unavailable [phone] Source Comments This information has been [...] release of HIV test results or diagnoses. [id number] Encounter Details Date Type Department Care Team (Late st Contact Info) Description 12/25/2017 Telephone [facility] Liver Transplant at Outpatient [address] [address] Latrice Brice MA Social History [...] Telephone Encounter - Latrice Brice MA - 12/25/2017 11:25 AM EDT Aiden called searching for advice regarding lab results and where his cyclosporine level should be where he can lower dosage in medication. This MA advised Aiden that every one is different and if anything the way his cyclosporine levels sits they may want to increase instead of decrease. Aiden stated he was on a z- pack last week and wondered if that could have any effect this MA advised Aiden it can per clinical unit coordinator JANA Gr Aiden should have labs drawn before follow up appointment 12-26-17. Aiden also stated he has been drinking diet citrus green tea and didn't know if that could effect his numbers either? Will route message to clinical unit coordinator JANA Gr documented in this encounter Plan of Treatment Upcoming Encounters Date Type Department Care Team (Late st Contact Info) Description 07/15/2024 9:00 AM EST Hospital Encounter [facility] Interventional Radiology [address] [place] [phone] Herve Carrillo MD [address] [facility] [address] [place] [address] documented as of this encounter Visit Diagnoses Not on filedocumented in this encounter Additional Health Concerns Assessment Noted Time PHQ-9 Depression Total Score: 0 12/06/19 18 3:00 PM EDT documented as of this encounter Care Teams Sales Operations Associate Relationship Specialty Start Date End Date Edgar Fournier MD [address] [place] [address] [place] [address] PCP - General 08/18/17 06/23/21 Maile Valles, JANA Txp Post Coordinator Transplant Hepatology 11/07/17 Jack Ordoñez MD [address] [place] [phone] Consulting Physician Transplant Hepatology 01/05/18 documented as of this encounter
--- OUTSIDE RECORDS SUMMARY | 2024-07-12 12:53 | XMS_ITS | Encounter Summary ---
Author Organization Health Address [facility] [place] [address] Care Team Providers Care Drum Printer Name Role Phone Edgar Fournier MD Primary Care Provider [phone] Maile Valles RN Unavailable Unavail able Jack Ordoñez MD Unavailable [phone] Source Comments This information has been [...] release of HIV test results or diagnoses. [id number] Health Encounter Details Date Type Department Care Team (Late st Contact Info) Description 01/17/2018 Telephone [facility] Liver Transplant at Outpatient [address] [address] Maile Valles, JANA Social History [...] Encounter - Maile Jean Baptiste RN - 01/17/2018 2:45 PM EDT D/w Dr. Vazquez who recommended patient be seen either 01/18 or 01/22. Spoke with patient. Patient declined appointment. Patient states he would take the dapsone in the morning and around 4 pm the swelling would become an issue. He states that he would put his legs up for 2 hours and the swelling would go down again. Patient d/c'd dapsone on his own. Coordinator advised against discontinuing medication without talking to the [facility] Team. Notified patient OK to stop dapsone, however will have to come to [facility] for pentamidine treatments. (Bactrim previously d/w T[facility] Pharmacist and not an option due to renal function.)Patient does not want to come to [facility] for treatments. Patient would like to try taking dapsone at night and see if swelling is an issue then. Coordinator agreed. Patient will call this coordinator on01/19 or 01/22 to update on edema issues. * Telephone Encounter - Maile Jean Baptiste RN - 01/17/2018 9:33 AM EDT CSA level 93, goal 100-150. Will route to T[facility] Provider for review and recommendations. * Telephone Encounter - Maile Jean Baptiste RN - 01/17/2018 9:17 AM EDT Lab results from 01/15/18 reviewed. Cr remains elevated, but stable. ALP elevated to 132 (from 106). Txp MA to find cyclosporine level. documented in this encounter Plan of Treatment Upcoming Encounters Date Type Department Care Team (Late st Contact Info) Description 07/15/2024 9:00 AM EST Hospital Encounter [facility] Interventional Radiology [address] [place] [address] Herve Carrillo MD [address] [facility] [address] [place] [address] documented as of this encounter Visit Diagnoses Not on filedocumented in this encounter Additional Health Concerns Assessment Noted Time PHQ-9 Depression Total Score: 0 12/06/19 18 3:00 PM EDT documented as of this encounter Care Teams Drum Printer Relationship Specialty Start Date End Date Egdar Fournier MD [address] [place] [address] PCP - General 08/18/17 06/23/21 Maile Valles, RN [facility] Post Coordinator Transplant Hepatology 11/07/17 Jack Ordoñez MD [address] [place] [address] Consulting Physician Transplant Hepatology 01/05/18 documented as of this encounter
--- OUTSIDE RECORDS SUMMARY | 2024-07-12 12:53 | XMS_ITS | Encounter Summary ---
Author Organization Health Address [facility] [place] [address] Care Team Providers Care Building Cleaning Supervisor Name Role Phone Edgar Fournier MD Primary Care Provider [phone] Maile Valles RN Unavailable Unavail able Source [...] release of HIV test results or diagnoses. [id number] Health Encounter Details Date Type Department Care Team (Late st Contact Info) Description 12/26/2017 Orders Only [facility] Liver Transplant at Outpatient [address] [address] Maile Valles, RN S/P liver transplant ([facility]) (Primary Dx) Social History Tobacco [...] Hospital Encounter [facility] Interventional Radiology [address] [place] [phone] Herve Carrillo MD [address] [facility] [address] [place] [address] documented as of this encounter Results * (ABNORMAL) Glucose 6 phosphate dehydrogenase, Quant (01/02/2018 9:20 AM EDT) RBC 3.34(L) 4.14 - 5.80 x10E6/uL 01/03/2018 3:13 AM EDT [facility] G-6-PD Qnt 406(H) 146 - 376 [...] - 01/05/2018 3:10 AM EDT PERFORMED AT: [facility] [id number] KNIT GOODS CUTTER HAND: Octavio Best, PhD ?? PHONE: [phone] PERFORMED AT: [facility] [id number] [employer]NIT GOODS CUTTER HAND: Hilton Galvan MD ?? PHONE: [phone] us Chetan Gallagher MD LAB BLOOD ORDERABLES Final Resu lt [facility] [address] [place] [address], [facility] documented in this encounter Visit Diagnoses Diagnosis S/P liver transplant (CMS-HCC)- Primary Transplanted liver (CMS-HCC) Liver replaced by transplant [...] documented as of this encounter Care Teams Building Cleaning Supervisor Relationship Specialty Start Date End Date Edgar Fournier MD [address] [place] [address] PCP - General 08/18/17 06/23/21 Maile Valles, RN Txp Post Coordinator Transplant Hepatology 11/07/17 documented as of this encounter
--- OUTSIDE RECORDS SUMMARY | 2024-07-12 12:53 | XMS_ITS | Encounter Summary ---
Author Organization Health Address [facility] [place] [address] Care Team Providers Care Nike Athlete Name Role Phone Edgar Fournier MD Primary Care Provider [phone] Maile Valles RN Unavailable Unavail able Source [...] release of HIV test results or diagnoses. [id number] Health Encounter Details Date Type Department Care Team (Late st Contact Info) Description 12/26/2017 Telephone [facility] Liver Transplant at Outpatient [address] [phone] [place] Social History Tobacco Use [...] Encounter - Maile Jean Baptiste RN - 12/26/2017 2:11 PM EDT Pentamidine treatment tentatively scheduled for 01/03. Will run G6PD test on 01/02. May be able to switch patient to Dapsone or Bactrim (If his renal function comes back to around 1.5 for his SCr) rather than pentamidine at that time. * Telephone Encounter - Maile Jean Baptiste RN - 12/26/2017 10:34 AM EDT Txp MA to reschedule patient for clinic appointment and pentamidine treatment next week 01/02. Not likely to switch back to Bactrim due to renal function, but awaiting recommendation from [facility] Pharmacist. * Telephone Encounter - Maile Jean Baptiste RN - 12/26/2017 10:07 AM EDT Patient missed clinic appointment and pentamidine appointment today. Asking if he can switch back to Bactrim instead of pentamidine. documented in this encounter Plan of Treatment Upcoming Encounters Date Type Department Care Team (Late st Contact Info) Description 07/15/2024 9:00 AM [facility] Hospital Encounter [facility] Interventional Radiology [address] [place] [address] Herve Carrillo MD [address] [facility] [address] Surgery [place] [address] documented as of this encounter Visit Diagnoses Not on filedocumented in this encounter Additional Health Concerns Assessment Noted Time PHQ-9 Depression Total Score: 0 12/06/19 18 3:00 PM EDT documented as of this encounter Care Teams Nike Athlete Relationship Specialty Start Date End Date Edgar Fournier MD [address] [place] [address] PCP - General 08/18/17 06/23/21 Maile Valles, RN Txp Post Coordinator Transplant Hepatology 11/07/17 documented as of this encounter
--- OUTSIDE RECORDS SUMMARY | 2024-07-12 12:53 | XMS_ITS | Encounter Summary ---
Author Organization Health Address [facility] [place] [address] Care Team Providers Care Field Radio Technician Name Role Phone Edgar Fournier MD Primary Care Provider [phone] Maile Valles RN Unavailable Unavail able Jack Ordoñez MD Unavailable [phone] Source Comments This information has been [...] release of HIV test results or diagnoses. [id number] Health Encounter Details Date Type Department Care Team (Late st Contact Info) Description 02/15/2018 Telephone [facility] Liver Transplant at Outpatient [address] [address] Maile Valles, JANA Social History [...] Encounter - Maile Jean Baptiste RN - 02/19/2018 10:[address] Ordoñez: No changes * Telephone Encounter - Maile Jean Baptiste RN - 02/19/2018 8:24 AM EDT CSA level 60. Goal 100-150. Will route to [facility] Provider for review and recommendations. * Telephone Encounter - Beth Irizarry - 02/15/2018 1:38 PM EDT It's still not ready yet because of the Holiday. His lab said it is a send out but it should be ready by tomorrow. * Telephone Encounter - Maile Jean Baptiste RN - 02/15/2018 10:22 AM EDT Patient called to review recent labs. Patient states he is feeling well. Lab results from 02/13/18 reviewed. Cr continues to be elevated, at 1.9. Encouraged patient to increase hydration. He verbalized understanding. LFTs remain stable. CSA level pending. documented in this encounter Plan of Treatment Upcoming Encounters Date Type Department Care Team (Late st Contact Info) Description 07/15/2024 9:00 AM EST Hospital Encounter [facility] Interventional Radiology [address] [place] [address] Herve Carrillo MD [address] [place] [address] documented as of this encounter Visit Diagnoses Not on filedocumented in this encounter Additional Health Concerns Assessment Noted Time PHQ-9 Depression Total Score: 0 12/06/19 18 3:00 PM EDT documented as of this encounter Care Teams Field Radio Technician Relationship Specialty Start Date End Date Edgar Fournier MD [address] [place] [address] [place] [address] PCP - General 08/18/17 06/23/21 Maile Valles, JANA Txp Post Coordinator Transplant Hepatology 11/07/17 Jack Ordoñez MD [facility] [place] [address] Consulting Physician Transplant Hepatology 01/05/18 documented as of this encounter
--- OUTSIDE RECORDS SUMMARY | 2024-07-12 12:53 | XMS_ITS | Encounter Summary ---
Author Organization [facility] Address [address] [place] [address] Care Team Providers Care Gas Golf Cart Repairer Name Role Phone Edgar Fournier MD Primary Care Provider [phone] Maile Valles RN Unavailable Unavail able Source [...] release of HIV test results or diagnoses. [id number] Health Reason for Visit * Reason Onset Date Comments Nausea 12/07/2017 Anorexia 12/07/2017 Encounter Details Date Type Department Care Team (Late st Contact Info) Description 12/07/2017 Telephone [facility] Liver Transplant at Outpatient [address] [address] Maru Flores RN Nausea; Anorexia Social History Tobacco Use Types Packs/Day Years [...] Telephone Encounter - Maru Flores RN - 12/07/2017 3:13 PM EDT Patient called with c/o all day nausea and anorexia Denies fever greater than 101.4, vomiting, or diarrhea Encouraged patient to take home supply of zofran as directed prn nausea Also encouraged rest and po fluids. If patient spikes fever greater than 101.4, vomiting, or other symptoms of infection please call transplant back and seek care at the ER. Patient verbalized understanding and is comfortable with the plan of care. documented in this encounter Plan of Treatment Upcoming Encounters Date Type Department Care Team (Late st Contact Info) Description 07/15/2024 9:00 AM [facility] Hospital Encounter [facility] Interventional Radiology [address] [place] [address] Herve Carrillo MD [address] [facility] [address] Surgery [place] [address] documented as of this encounter Visit Diagnoses Not on filedocumented in this encounter Additional Health Concerns Assessment Noted Time PHQ-9 Depression Total Score: 0 12/06/19 18 3:00 PM EDT documented as of this encounter Care Teams Gas Golf Cart Repairer Relationship Specialty Start Date End Date Edgar Fournier MD [address] [place] [address] [place] [address] PCP - General 08/18/17 06/23/21 Maile Valles, JANA Txp Post Coordinator Transplant Hepatology 11/07/17 documented as of this encounter
--- OUTSIDE RECORDS SUMMARY | 2024-07-12 12:53 | XMS_ITS | Encounter Summary ---
Author Organization Health Address [address] [place] [address] Care Team Providers Care Hide Measuring Machine Operator Name Role Phone Edgar Fournier MD Primary Care Provider [phone] Maile Valles RN Unavailable Unavail able aJck Ordoñez MD Unavailable [phone] Source Comments This information has been [...] release of HIV test results or diagnoses. [id number] Health Encounter Details Date Type Department Care Team (Late st Contact Info) Description 01/05/2018 Telephone [facility] Liver Transplant at Outpatient [id number] [place] [address] America Vazquez MD [address] [place] [address] Social History Tobacco Use Types [...] encounter Miscellaneous Notes * Telephone Encounter - Sharyn Villalba RN - 01/05/2018 3:31 PM EDT Spoke with patient Reviewed results and plan Verbalized understanding * Telephone Encounter - Sharyn Villalba RN - 01/05/2018 3:17 PM EDT Unable to leave message on cell or home phone for patient or . LM on Kimberly Stauffer's voice mail concerning medication changes Asked to contact office with confirmation of message * Telephone Encounter - America Vazquez MD - 01/05/2018 2:28 PM EDT Decrease cyclosporine to 125 mg twice daily. documented in this encounter Plan of Treatment Upcoming Encounters Date Type Department Care Team (Late st Contact Info) Description 07/15/2024 9:00 AM EST Hospital Encounter [facility] Interventional Radiology [address] [place] [address] Herve Carrillo MD [address] [facility] [address] [place] [address] documented as of this encounter Visit Diagnoses Diagnosis Encounter for therapeutic drug level monitoring documented in this encounter Additional Health Concerns Assessment Noted Time PHQ-9 Depression Total Score: 0 12/06/19 18 3:00 PM EDT documented as of this encounter Care Teams Hide Measuring Machine Operator Relationship Specialty Start Date End Date Edgar Fournier MD [address] [place] [address] [place] [address] PCP - General 08/18/17 06/23/21 Maile Valles, RN Txp Post Coordinator Transplant Hepatology 11/07/17 Jack Ordoñez MD [facility] [place] [address] Consulting Physician Transplant Hepatology 01/05/18 documented as of this encounter
--- OUTSIDE RECORDS SUMMARY | 2024-07-12 12:53 | XMS_ITS | Encounter Summary ---
Author Organization Health Address [facility] [place] [address] Care Team Providers Care Multiskill Operator Name Role Phone Edgar Fournier MD Primary Care Provider [phone] Maile Valles RN Unavailable Unavail able Source [...] release of HIV test results or diagnoses. [id number] Health Encounter Details Date Type Department Care Team (Late st Contact Info) Description 12/10/2017 Telephone [facility] Liver Transplant at Outpatient [address] [phone] Eleanor Casey PA Social History Tobacco Use Types Packs/Day Years [...] Telephone Encounter - Dillon Whitman RN - 12/10/2017 11:35 AM EDT This skin care consultant coordinator received a call from Dr. Olmedo ([facility]) re: patient ER admit withc/o fever and abdominal pain/discomfort. Was diagnosed with a URI earlier in the week and currentlyon antibiotics. Per MD, labs are normal (cbc, renal, and LFT's). Considering abdominal CT for abdominal pain vs. Dc to home. Will call back on-call coordinator if CT is abnormal or for patient admission. Will route to coordinator for f/up. documented in this encounter Plan of Treatment Upcoming Encounters Date Type Department Care Team (Late st Contact Info) Description 07/15/2024 9:00 AM [facility] Hospital Encounter [facility] Interventional Radiology [address] [place] [address] Herve Carrillo MD [address] [facility] [address] [place] [address] documented as of this encounter Visit Diagnoses Not on filedocumented in this encounter Additional Health Concerns Assessment Noted Time PHQ-9 Depression Total Score: 0 12/06/19 18 3:00 PM EDT documented as of this encounter Care Teams Multiskill Operator Relationship Specialty Start Date End Date Edgar Fournier MD [address] [place] [address] [place] [address] PCP - General 08/18/17 06/23/21 Maile Valles, RN Txp Post Coordinator Transplant Hepatology 11/07/17 documented as of this encounter
--- OUTSIDE RECORDS SUMMARY | 2024-07-12 12:53 | XMS_ITS | Encounter Summary ---
Author Organization Health Address [facility] [place] [address] Care Team Providers Care Street Supervisor Name Role Phone Edgar Fournier MD Primary Care Provider [phone] Maile Valles RN Unavailable Unavail able Source [...] release of HIV test results or diagnoses. [id number] Health Encounter Details Date Type Department Care Team (Late st Contact Info) Description 12/20/2017 Orders Only [facility] Liver Transplant at Outpatient [address] [address] Maile Valles, RN S/P liver transplant ([facility]) (Primary Dx); Immunosuppression ([facility]) Social History Tobacco Use Types [...] [facility] Interventional Radiology [address] [place] [phone] Herve Carrillo MD [address] [facility] [address] [place] [address] documented as of this encounter Results * Vitamin D 25 hydroxy (01/02/2018 9:20 AM EDT) Vit D, 25-Hydroxy 38.3 30.0 - 100 ng/mL 01/02/2018 11:48 AM EDT HEALTH LAB Comment: Vitamin D deficiency has been defined by the [place] of Medicine (IOM) and an Endocrine Society practice guideline as a level of serum 25-OH Vitamin D less than 20 ng/mL. ?? The Endocrine Society went on to further define Vitamin D insufficiency as a level between 21-29 ng/mL. 1) ??IOM. 2011 Dietary reference intakes for calcium and D. ??[place]: The National Academies Press 2) ??Juliana MF, Leidy CASTELLANO, Khurram MACK, et al. ??Evaluation, treatment, and prevention of Vitamin D deficiency: an Endocrine Society clinical practice guideline. ??JCEM. ??2010; 96(5):1911-30. Serum specimen (specimen) 01/02/2018 9:20 AM EDT 01/02/2018 10:03 AM EDT us America Vazquez MD LAB BLOOD ORDERABLES Fi nal Result [facility] [address] [place] [address], [facility] * Hemoglobin A1c (01/02/2018 9:20 AM EDT) Hemoglobin A1C 5.3 4.8 - 6.4 % 01/02/2018 11:06 AM EDT HEALTH LAB Comment: Hemoglobin (Hb) A1C Normal: ??4.8 - 5.6% Increased Risk for Diabetes: 5.7 - 6.4% Diagnostic Diabetes: ? >/= ?? 6.5% (Drawn on 2 separate occasions) Glycemic Control for Adults with Diabetes: <7.0% (DCCT / NGSP) Whole blood specimen (specimen) 01/02/2018 9:20 AM EDT 01/02/2018 10:00 AM EDT us America Vazquez MD LAB BLOOD ORDERABLES Fi nal Result [facility] [address] [place] [address], [facility] * (ABNORMAL) Lipid Profile (01/02/2018 9:20 AM EDT) Cholesterol, Total 168 0 - 200 mg/dL 01/02/2018 10:40 AM EDT [facility] Triglycerides 274(H) 10 - 149 mg/dL 01/02/2018 10:40 AM EDT [facility] HDL 30(L) 60 - 92 mg/dL 01/02/2018 10:40 AM EDT [facility] Comment: ?LIPID PROFILE INTERPRETATION ?CHOLESTEROL,TOTAL(mg/dL) [...] Cholesterol 83 mg/dL 8 10:40 AM EDT [facility] Plasma specimen (specimen) 01/02/2018 9:20 AM EDT 01/02/2018 10:03 AM EDT [facility] HEALTH LAB - 01/02/2018 10:40 AM EDT Must the patient be fasting for this test?->No America Vazquez MD LAB BLOOD ORDERABLES Fi nal Result Performing Organization Address [facility] Co de Phone Number [facility] [address] [facility]. [address] * HIV 1+2 Antibody/Antigen with Reflex (01/02/2018 9:20 AM EDT) HIV 1+2 AB/AGN Nonreactive Nonreactive 01/02/2018 11:34 AM EDT [facility] Serum specimen (specimen) 01/02/2018 9:20 AM EDT 01/02/2018 10:04 AM EDT [facility] LAB - 01/02/2018 11:34 AM EDT HIV-1 p24 Antigen and HIV-1/HIV-2 Antibody not detected. America Vazquez MD LAB BLOOD ORDERABLES Fi nal Result Performing Organization Address [facility] Co de Phone Number [facility] [address] [facility]. [address] * Hepatitis B surface antigen (01/02/2018 9:20 AM EDT) Hep B Surface Ag Nonreactive Nonreactive 01/02/2018 11:31 AM EDT [facility] Comment:Health Department no tified in accordance with reportable infectious disease guidelines. Serum specimen (specimen) 01/02/2018 9:20 AM EDT 01/02/2018 10:04 AM EDT Narrative [facility] - 01/02/2018 11:31 AM EDT Specimen is considered negative for HBsAg. America Vazquez MD LAB BLOOD ORDERABLES Fi nal Result Performing Organization Address [facility] Co de Phone Number [facility] [address] * Hepatitis C RNA, Quantitative PCR (01/02/2018 9:20 AM EDT) Pathologist [facility] Not Detected IU/mL 01/03/2018 2:08 PM EDT [facility] Comment:Test methodology for HCV RNA V2.0 quantification is a FDA-approved nucleic acid amplification assay. The Lower Limit of Quantitation (LLOQ) is 15 IU/mL; the linear range is 15- 100,000,000 IU/mL. The Limit of Detection (LoD) is 15 IU/mL. IU log10 See Note log 10 IU/mL 01/03/2018 2:08 PM EDT [facility] Comment: Unable to calculate result either because contributing result(s) are outside of reportable range or are not available. HCV RNA not detected. Serum specimen (specimen) 01/02/2018 9:20 AM EDT 01/02/2018 10:22 AM EDT Result [facility] America Vazquez MD LAB BLOOD ORDERABLES Fi nal Result Performing Organization Address [facility] de Phone Number [facility] [address] [facility]. [address] * (ABNORMAL) Hepatitis B Surface Antibody, Quantitative (01/02/2018 9:20 AM EDT) Pathologist [facility] HBSAB NUMBER [id number](H) 0.00 - 7.99 mIU/mL 01/02/2018 11:38 AM EDT [facility] Hep B S Ab Reactive( A) Nonreactive 01/02/2018 11:38 AM EDT [facility] Serum specimen (specimen) 01/02/2018 9:20 AM EDT 01/02/2018 10:04 AM EDT Narrative [facility] - 01/02/2018 11:38 AM EDT Individual is considered immune to HBV infection. America Vazquez MD LAB BLOOD ORDERABLES Fi nal Result Performing Organization Address [facility] Co de Phone Number [facility] [address] [facility]. [address] * Hepatitis B Virus (HBV), PCR, Quant (01/02/2018 9:20 AM EDT) Hep B Viral DNA IU/ML Not Detected IU/mL 01/09/2018 7:04 PM EDT [facility] Comment:Test methodology for HBV DNA quantification is an FDA-approved nucleic acid amplification assay. The Lower Limit of Quantitation (LLOQ) is 20 IU/mL. The linear range of the assay is 20- 170,000,000 IU/mL. log 10 HBV as IU/mL See Note log 10 IU/mL 01/09/2018 7:04 PM EDT [facility] Comment: Unable to calculate result either because contributing result(s) are outside of reportable range or are not available. HBV DNA not detected. Serum specimen (specimen) 01/02/2018 9:20 AM EDT 01/02/2018 10:22 AM EDT America Vazquez MD LAB BLOOD ORDERABLES Fi nal Result Performing Organization Address [facility] Co de Phone Number [facility] [address] [facility]. [address] documented in this encounter Visit Diagnoses [...] documented as of this encounter Care Teams Street Supervisor Relationship Specialty Start Date End Date Edgar Fournier MD [address] [place] [address] PCP - General 08/18/17 06/23/21 Maile Valles, RN Txp Post Coordinator Transplant Hepatology 11/07/17 documented as of this encounter
--- OUTSIDE RECORDS SUMMARY | 2024-07-12 12:53 | XMS_ITS | Encounter Summary ---
Author Organization Health Address [address] [place] [address] Care Team Providers Care Assistant Product Manager Name Role Phone Edgar Fournier MD Primary Care Provider [phone] Maile Valles RN Unavailable Unavail able Source [...] release of HIV test results or diagnoses. [id number] Health Reason for Visit * Reason Onset Date Comments Medication Refill 12/06/2017 Encounter Details Date Type Department Care Team (Late st Contact Info) Description 12/06/2017 Refill [facility] Liver Transplant at Outpatient [address] [address] Maile Valles, JANA Essential hypertension Social History Tobacco Use Types Packs/Day [...] [facility] Interventional Radiology [address] [place] [phone] Herve Carrillo MD [address] [facility] [address] [place] [address] documented as of this encounter Visit Diagnoses Diagnosis Essential hypertension Unspecified essential hypertension documented in this encounter Additional Health Concerns Assessment Noted Time PHQ-9 Depression Total Score: 0 12/06/19 18 3:00 PM EDT documented as of this encounter Care Teams Assistant Product Manager Relationship Specialty Start Date End Date Edgar Fournier MD [address] [place] [address] [place] [phone] PCP - General 08/18/17 06/23/21 Maile Valles, RN Txp Post Coordinator Transplant Hepatology 11/07/17 documented as of this encounter
--- OUTSIDE RECORDS SUMMARY | 2024-07-12 12:53 | XMS_ITS | Encounter Summary ---
Author Organization Health Address [facility] [place] [address] Care Team Providers Care Autocad Detailer Name Role Phone Edgar Fournier MD Primary Care Provider [phone] Maile Valles RN Unavailable Unavail able Jack Ordoñez MD Unavailable [phone] Source Comments This information has been [...] release of HIV test results or diagnoses. [id number] Health Encounter Details Date Type Department Care Team (Late st Contact Info) Description 02/13/2018 Chart Note [facility] [phone] Latrice Brice MA Social History Tobacco Use [...] [facility] Inter[facility] Radiology [address] [place] [phone] Herve Carrillo MD [address] [place] [address] documented as of this encounter Procedures Procedure Name Priority Date/Time Associated Diagnosis Comments HEPATIC FUNCTION PANEL Routine 02/13/2018 10:44 AM EDT CBC AND DIFFERENTIAL Routine 02/13/2018 10:44 AM EDT MAGNESIUM Routine 02/13/2018 10:44 AM EDT RENAL FUNCTION PANEL W/O EGFR Routine 02/13/2018 10:44 AM EDT documented in this encounter Results * Magnesium (02/13/2018 10:44 AM EDT) Magnesium 1.8 1.6 - 2.4 mg/dL EXTERNAL Plasma specimen (specimen) us Historical Provider LAB BLOOD ORDERABLES Yoselin l Result EXTERNAL * (ABNORMAL) Renal Function Panel w/o EGFR (02/13/2018 10:44 AM EDT) BUN/Creatinine Ratio 23.2 EXTERNAL Glucose 147 mg/dL EXTERNAL BUN 44(A) 4 - 21 mg/dL EXTERNAL CO2 29(A) 13 - 22 mmol/L EXTERNAL Creatinine 1.9(A) 0.6 - 1.3 mg/dL EXTERNAL Potassium 4.5 3.4 - 5.3 mmol/L EXTERNAL Sodium 143 137 - 147 mmol/L EXTERNAL Chloride 106 99 - 108 mmol/L EXTERNAL Albumin 3.3 EXTERNAL Phosphorus 4.8 2.5 - 4.9 mg/dL EXTERNAL Calcium 8.5(A) 8.7 - 10.7 mg/dL EXTERNAL EGFR 41 mg/dL EXTERNAL Blood specimen (specimen) Historical Provider MD LAB BLOOD ORDERABLES Yoselin robles Result EXTERNAL * (ABNORMAL) CBC and differential (02/13/2018 10:44 AM EDT) Hemoglobin 10.9(A) 13.5 - 17.5 g/dL EXTERNAL Hematocrit 32.9(A) 41 - 53 % EXTERNAL RDW 13.5 11.5 - 14.5 % EXTERNAL Lymphocytes Absolute 0.68 /??L EXTERNAL Monocytes Absolute 0.19 /??L EXTERNAL Eosinophils Absolute 0.03 /??L EXTERNAL Basophils Absolute 0.01 /??L EXTERNAL Neutrophils Relative 73.1 46 - 78 % EXTERNAL Lymphocytes Relative 20.1 18 - 52 % EXTERNAL Monocytes Relative 5.6 3 - 10 % EXTERNAL Eosinophils Relative 0.9 0 - 6 % EXTERNAL Basophils Relative 0.3 0 - 3 % EXTERNAL Neutrophils Absolute 2.47 /??L EXTERNAL MCH 30.4 26.0 - 34.0 pg EXTERNAL MCHC 33.1 30 - 37 g/dL EXTERNAL MCV 91.9 82.0 - 108.0 fL EXTERNAL Platelets 221 K/??L EXTERNAL RBC 3.58(A) 4.50 - 5.90 10^6/??L EXTERNAL WBC 3.4 10^3/mL EXTERNAL Blood specimen (specimen) Historical Provider MD LAB BLOOD ORDERABLES Yoselin l Result EXTERNAL * Hepatic Function Panel (02/13/2018 10:44 AM EDT) Alkaline Phosphatase 140 U/L EXTERNAL ALT 19 U/L EXTERNAL AST 13 U/L EXTERNAL Total Bilirubin 0.3 0.1 - [...] documented as of this encounter Care Teams Autocad Detailer Relationship Specialty Start Date End Date Edgar Fournier MD [address] [place] [address] [place] [address] PCP - General 08/18/17 06/23/21 Maile Valles, JANA Txp Post Coordinator Transplant Hepatology 11/07/17 Jack Ordoñez MD [facility] [place] [phone] Consulting Physician Transplant Hepatology 01/05/18 documented as of this encounter
--- OUTSIDE RECORDS SUMMARY | 2024-07-12 12:53 | XMS_ITS | Encounter Summary ---
Author Organization Health Address [facility] [place] [address] Care Team Providers Care Tank Tester Name Role Phone Edgar Fournier MD Primary Care Provider [phone] Maile Valles RN Unavailable Unavail able Source [...] release of HIV test results or diagnoses. 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 Dx); Drug therapy Social History Tobacco [...] [facility] Interventional Radiology [address] [place] [phone] Herve Carrillo MD [address] [facility] [address] [place] [address] documented as of this encounter Visit Diagnoses Diagnosis Transplanted liver ([facility]-HCC)- Primary Liver replaced by transplant Drug therapy Encounter for other specified aftercare documented in this encounter Additional Health Concerns Assessment Noted Time PHQ-9 Depression Total Score: 0 12/06/19 18 3:00 PM EDT documented as of this encounter Care Teams Tank Tester Relationship Specialty Start Date End Date Edgar Fournier [place] [address] PCP - General 08/18/17 06/23/21 Maile Valles, JANA Txp Post Coordinator Transplant Hepatology 11/07/17 documented as of this encounter
--- OUTSIDE RECORDS SUMMARY | 2024-07-12 12:53 | XMS_ITS | Encounter Summary ---
Author Organization [facility] Address [facility] [place] [address] Care Team Providers Care Bun Panner Name Role Phone Edgar Fournier MD Primary Care Provider [phone] Maile Valles RN Unavailable Unavail able Jack Ordoñez MD Unavailable [phone] Source Comments This information has been [...] release of HIV test results or diagnoses. [id number] Reason for Visit * Reason Comments Medication Refill Encounter Details Date Type Department Care Team (Late st Contact Info) Description 12/07/2017 Refill [facility] Liver Transplant at Outpatient [place] [address] [place] [phone] Eleanor Casey PA Essential hypertension Social History Tobacco Use Types [...] 9:00 AM EST Hospital Encounter [facility] Interventional Radiology [address] [place] [phone] Herve Carrillo MD [facility] [facility] [address] [place] [address] documented as of this encounter Visit Diagnoses Diagnosis Essential hypertension Unspecified essential hypertension documented in this encounter Additional Health Concerns Assessment Noted Time PHQ-9 Depression Total Score: 0 12/06/19 18 3:00 PM EDT documented as of this encounter Care Teams Bun Panner Relationship Specialty Start Date End Date Edgar Fournier MD [address] [place] [address] [place] [address] PCP - General 08/18/17 06/23/21 Maile Valles, JANA Txp Post Coordinator Transplant Hepatology 11/07/17 Jack Ordoñez MD [address] [place] [phone] Consulting Physician Transplant Hepatology 01/05/18 documented as of this encounter
--- OUTSIDE RECORDS SUMMARY | 2024-07-12 12:53 | XMS_ITS | Encounter Summary ---
Author Organization [facility] Address [address] [place] [address] Care Team Providers Care Diamond Sorter Name Role Phone Edgar Fournier MD Primary Care Provider [phone] Jazmín Valles RN Unavailable Unavail able Jack Ordoñez MD Unavailable [phone] Source Comments This information has been [...] release of HIV test results or diagnoses. [id number] Reason for Visit * Reason Onset Date Comments Results 01/30/2018 Encounter Details Date Type Department Care Team (Late st Contact Info) Description 01/30/2018 Telephone [facility] Liver Transplant at Outpatient [address] [address] Jazmín Valles, JANA Results Social History Tobacco Use [...] of this encounter Progress Notes * Jazmín Jean Baptiste RN - 02/02/2018 1:31 PM EDTAddended by: JAZMÍN JEAN BAPTISTE on: 02/02/2018 01:31 PM Modules accepted: Orders documented in this encounter Miscellaneous Notes * Telephone Encounter - Jazmín Jean Baptiste RN - 02/02/2018 1:25 PM EDT Patient called to discuss recent labs. Long conversation explaining CSA level and goal range to help guide in dosing CSA. Patient verbalized understanding. Patient stated that he had been dehydrated and out in the hot weather for a couple of days prior tolabs being drawn. Patient commented on K level and that he planned to cut back on bananas and other high potassium foods. Patient saw PCP yesterday re: ongoing foot pain. PCP discontinued Mirapex and gabapentin. Started patient on carbamazepine and Lyrica. Planning to discontinue carbamazepine if Lyrica helps. Medications updated. * Telephone Encounter - Jazmín Jean Baptiste RN - 02/02/2018 12:32 PM EDT Lab results from 01/30/18 reviewed and are normal or without clinically significant abnormalities. CSA level 105, goal 100-150. Will continue to monitor as per previously determined lab intervals. * Telephone Encounter - Latrice Brice MA - 01/31/2018 2:38 PM EDT This REBEKAH spoke with [facility] regarding missing standing labs. tv technician stated he would add a renal and differential panel today 01-31-18 documented in this encounter Plan of Treatment Upcoming Encounters Date Type Department Care Team (Late st Contact Info) Description 07/15/2024 9:00 AM EST Hospital Encounter [facility] Interventional Radiology [address] [place] [address] Herve Carrillo MD [address] [place] [phone] documented as of this encounter Visit Diagnoses Not on filedocumented in this encounter Additional Health Concerns Assessment Noted Time PHQ-9 Depression Total Score: 0 12/06/19 18 3:00 PM EDT documented as of this encounter Care Teams Diamond Sorter Relationship Specialty Start Date End Date Edgar Fournier MD [address] [place] [address] [place] [phone] PCP - General 08/18/17 06/23/21 Jazmín Valles, JANA Txp Post Coordinator Transplant Hepatology 11/07/17 Jack Ordoñez MD [address] [place] [phone] Consulting Physician Transplant Hepatology 01/05/18 documented as of this encounter
--- OUTSIDE RECORDS SUMMARY | 2024-07-12 12:53 | XMS_ITS | Encounter Summary ---
Author Organization Health Address [facility] [place] [address] Care Team Providers Care Varnish Inspector Name Role Phone Edgar Fournier MD Primary Care Provider [phone] Maile Valles RN Unavailable Unavail able Jack Ordoñez MD Unavailable [phone] Source Comments This information has been [...] release of HIV test results or diagnoses. [id number] Health Encounter Details Date Type Department Care Team (Late st Contact Info) Description 02/02/2018 Chart Note [facility] [phone] Latrice Brice MA Social History Tobacco Use [...] 9:00 AM EST Hospital Encounter [facility] Interventional Radiology [address] [place] [address] Herve Carrillo MD [address] [facility] [address] [place] [address] documented as of this encounter Procedures Procedure Name Priority Date/Time Associated Diagnosis Comments CYCLOSPORINE LEVEL Routine 01/30/2018 9: 38 AM EDT documented in this encounter Results * Cyclosporine level (01/30/2018 9:38 AM EDT) Cyclosporine, Blood 105 Whole blood specimen (specimen) us Historical Provider LAB BLOOD ORDERABLES Yoselin l Result documented in this encounter Visit Diagnoses Not on filedocumented in this encounter Additional Health Concerns Assessment Noted Time PHQ-9 Depression Total Score: 0 12/06/19 18 3:00 PM EDT documented as of this encounter Care Teams Varnish Inspector Relationship Specialty Start Date End Date Edgar Fournier MD [address] [place] [address] PCP - General 08/18/17 06/23/21 Maile Valles, RN Txp Post Coordinator Transplant Hepatology 11/07/17 Jack Ordoñez MD [address] [place] [phone] Consulting Physician Transplant Hepatology 01/05/18 documented as of this encounter
--- OUTSIDE RECORDS SUMMARY | 2024-07-12 12:53 | XMS_ITS | Encounter Summary ---
Author Organization Health Address [facility] [place] [address] Care Team Providers Care Butter Maker Name Role Phone Edgar Fournier MD Primary Care Provider [phone] Maile Valles RN Unavailable Unavail able aJck Ordoñez MD Unavailable [phone] Source Comments This information has been [...] release of HIV test results or diagnoses. [id number] Encounter Details Date Type Department Care Team (Late st Contact Info) Description 12/21/2017 Telephone [facility] Liver Transplant at Outpatient [address] [address] Latrice Brice MA Social History [...] Telephone Encounter - Latrice Brice MA - 12/21/2017 11:39 AM EDT Aiden called stating his feet are killing him and wanted to know if his magnesium level had anything to do with that. This MA informed Aiden that the magnesium level was not drawn it was missed however, per academic success coordinator JANA Gr Aiden should make an appointment with his PCP to be evaluated. documented in this encounter Plan of Treatment Upcoming Encounters Date Type Department Care Team (Late st Contact Info) Description 07/15/2024 9:00 AM EST Hospital Encounter [facility] Interventional Radiology [address] [place] [phone] Herve Carrillo MD 3130 [facility] 3200 [facility] [place] [phone] documented as of this encounter Visit Diagnoses Not on filedocumented in this encounter Additional Health Concerns Assessment Noted Time PHQ-9 Depression Total Score: 0 12/06/19 18 3:00 PM EDT documented as of this encounter Care Teams Butter Maker Relationship Specialty Start Date End Date Edgar Fournier MD [address] [place] [address] [place] [address] PCP - General 08/18/17 06/23/21 Maile Valles, JANA Txp Post Coordinator Transplant Hepatology 11/07/17 Jack Ordoñez MD [address] [place] [phone] Consulting Physician Transplant Hepatology 01/05/18 documented as of this encounter
--- OUTSIDE RECORDS SUMMARY | 2024-07-12 12:53 | XMS_ITS | Encounter Summary ---
Author Organization Health Address [facility] [place] [address] Care Team Providers Care Golf Ball Inspector Name Role Phone Edgar Fournier MD Primary Care Provider [phone] Maile Valles RN Unavailable Unavail able Jack Ordoñez MD Unavailable [phone] Source Comments This information has been [...] release of HIV test results or diagnoses. [id number] Health Encounter Details Date Type Department Care Team (Late st Contact Info) Description 12/20/2017 Chart Note [facility] [phone] Latrice Brice MA Folate 17.3 Social History Tobacco Use Types Packs/Day Years [...] Progress Notes * Latrice Brice MA - 12/20/2017 1:55 PM EDT Folate 17.3 documented in this encounter Plan of Treatment Upcoming Encounters Date Type Department Care Team (Late st Contact Info) Description 07/15/2024 9:00 AM EST Hospital Encounter [facility] Interventional Radiology [address] [place] [phone] Herve Carrillo MD 3130 [facility] 3200 [place] [phone] documented as of this encounter Procedures Procedure Name Priority Date/Time Associated Diagnosis Comments THYROID PANEL Routine 12/20/2017 9:59 AM EDT HEPATIC FUNCTION PANEL Routine 12/20/2017 9:59 AM EDT HEPATIC FUNCTION PANEL Routine 12/20/2017 9:59 AM EDT CBC AND DIFFERENTIAL Routine 12/20/2017 9:59 AM EDT CBC AND DIFFERENTIAL Routine 12/20/2017 9:59 AM EDT VITAMIN B12 Routine 12/20/2017 9:59 AM EDT RENAL FUNCTION PANEL W/O EGFR Routine 12/20/2017 9:59 AM EDT documented in this encounter Results * (ABNORMAL) Renal Function Panel w/o EGFR (12/20/2017 9:59 AM EDT) BUN/Creatinine Ratio 22.8 EXTERNAL Glucose 151 mg/dL EXTERNAL BUN 41(A) 4 - 21 mg/dL EXTERNAL CO2 25(A) 13 - 22 mmol/L EXTERNAL Creatinine 1.8(A) 0.6 - 1.3 mg/dL EXTERNAL Potassium 5.3 3.4 - 5.3 mmol/L EXTERNAL Sodium 138 137 - 147 mmol/L EXTERNAL Chloride 105 99 - 108 mmol/L EXTERNAL Albumin 3.5 EXTERNAL Phosphorus 4.6 2.5 - 4.9 mg/dL EXTERNAL Calcium 8.7 8.7 - 10.7 mg/dL EXTERNAL EGFR 44 mg/dL EXTERNAL Blood specimen (specimen) Result [facility] Provider MD LAB BLOOD ORDERABLES Yoselin l Result Performing Organization Address City/[facility]/ZIP Co de Phone Number EXTERNAL * Hepatic Function Panel (12/20/2017 9:59 AM EDT) Pathologist [facility] Alkaline Phosphatase 113 U/L EXTERNAL ALT 20 U/L EXTERNAL AST 13 U/L EXTERNAL Bilirubin, Direct 0.2 0.01 - 0.4 mg/dL EXTERNAL Plasma specimen (specimen) Result [facility] Provider LAB BLOOD ORDERABLES Yoselin l Result Performing Organization Address [facility] Co de Phone Number EXTERNAL * Vitamin B12 (12/20/2017 9:59 AM EDT) Pathologist [facility] Vitamin B-12 690 EXTERNAL Serum specimen (specimen) Result [facility] Provider LAB BLOOD ORDERABLES Yoselin l Result Performing Organization Address [facility] Co de Phone Number EXTERNAL * CBC and differential (12/20/2017 9:59 AM EDT) Lymphocytes Absolute 1.02 /??L EXTERNAL Monocytes Absolute 0.16 /??L EXTERNAL Eosinophils Absolute 0.03 /??L EXTERNAL Basophils Absolute 0.01 /??L EXTERNAL Neutrophils Relative 76.2 46 - 78 % EXTERNAL Lymphocytes Relative 19.9 18 - 52 % EXTERNAL Monocytes Relative 3.1 3 - 10 % EXTERNAL Eosinophils Relative 0.6 0 - 6 % EXTERNAL Basophils Relative 0.2 0 - 3 % EXTERNAL Blood specimen (specimen) Result [facility] Provider MD LAB BLOOD ORDERABLES Yoselin l Result Performing Organization Address City/[facility] de Phone Number EXTERNAL * Thyroid Panel (12/20/2017 9:59 AM EDT) TSH 2.02 0.41 - 5.90 uIU/mL EXTERNAL Blood specimen (specimen) Result [facility] Provider LAB BLOOD ORDERABLES Yoselin l Result Performing Organization Address [facility] de Phone Number EXTERNAL * Hepatic Function Panel (12/20/2017 9:59 AM EDT) Hemoglobin A1C 5.3 4.0 - 6.0 % EXTERNAL Total Bilirubin 0.4 0.1 - 1.4 mg/dL EXTERNAL Total Protein 7.1 6.4 - 8.2 g/dL EXTERNAL Plasma specimen (specimen) Result [facility] Provider LAB BLOOD ORDERABLES Yoselin l Result Performing Organization Address [facility] de Phone Number EXTERNAL * (ABNORMAL) CBC and differential (12/20/2017 9:59 AM EDT) Hemoglobin 10(A) 13.5 - 17.5 g/dL EXTERNAL Hematocrit 30.8(A) 41 - 53 % EXTERNAL RDW 15(A) 11.5 - 14.5 % EXTERNAL Neutrophils Absolute 3.9 /??L EXTERNAL MCH 31.2 26.0 - 34.0 pg EXTERNAL MCHC 32.5 30 - 37 g/dL EXTERNAL MCV 96 82.0 - 108.0 fL EXTERNAL Platelets 304 K/??L EXTERNAL RBC 3.21(A) 4.50 - 5.90 10^6/??L EXTERNAL WBC 5.1 10^3/mL EXTERNAL Blood specimen (specimen) Result [facility] Provider LAB BLOOD ORDERABLES Yoselin l Result Performing Organization Address [facility] de Phone Number EXTERNAL documented in this encounter Visit Diagnoses Not on filedocumented in this encounter Additional Health Concerns Assessment Noted Time PHQ-9 Depression Total Score: 0 12/06/19 18 3:00 PM EDT documented as of this encounter Care Teams Golf Ball Inspector Relationship Specialty Start Date End Date Edgar Fournier MD [address] [place] [address] PCP - General 08/18/17 06/23/21 Maile Valles, RN Txp Post Coordinator Transplant Hepatology 11/07/17 Jack Ordoñez MD [address] [place] [address] Consulting Physician Transplant Hepatology 01/05/18 documented as of this encounter
--- OUTSIDE RECORDS SUMMARY | 2024-07-12 12:53 | XMS_ITS | Encounter Summary ---
Author Organization Health Address [facility] [place] [address] Care Team Providers Care Corporate Security Officer Name Role Phone Edgar Fournier MD Primary Care Provider [phone] Maile Valles RN Unavailable Unavail able Jack Ordoñez MD Unavailable [phone] Source Comments This information has been [...] release of HIV test results or diagnoses. [id number] Encounter Details Date Type Department Care Team (Late st Contact Info) Description 01/30/2018 Chart Note [facility] [phone] Beth Irizarry MA Social History Tobacco Use [...] Encounter [facility] Interventional Radiology [address] [place] [phone] Herve Carrillo MD [address] [place] [address] documented as of this encounter Procedures Procedure Name Priority Date/Time Associated Diagnosis Comments HEPATIC FUNCTION PANEL Routine 01/30/2018 9:38 AM EDT CBC AND DIFFERENTIAL Routine 01/30/2018 9:38 AM EDT RENAL FUNCTION PANEL W/O EGFR Routine 01/30/2018 9:38 AM EDT documented in this encounter Results * Renal Function Panel w/o EGFR (01/30/2018 9:38 AM EDT) Albumin 3.4 EXTERNAL Blood specimen (specimen) us Historical Provider LAB BLOOD ORDERABLES Yoselin robles Result EXTERNAL * (ABNORMAL) CBC and differential (01/30/2018 9:38 AM EDT) Hemoglobin 10.9(A) 13.5 - 17.5 g/dL EXTERNAL Hematocrit 31.3(A) 41 - 53 % EXTERNAL RDW 13.9 11.5 - 14.5 % EXTERNAL MCH 32.3 26.0 - 34.0 pg EXTERNAL MCHC 34.8 30 - 37 g/dL EXTERNAL MCV 92.9 82.0 - 108.0 fL EXTERNAL Platelets 246 K/??L EXTERNAL RBC 3.37(A) 4.50 - 5.90 10^6/??L EXTERNAL WBC 4.3 10^3/mL EXTERNAL Blood specimen (specimen) Historical Provider LAB BLOOD ORDERABLES Yoselin l Result EXTERNAL * Hepatic Function Panel (01/30/2018 9:38 AM EDT) Alkaline Phosphatase 129 U/L EXTERNAL ALT 15 U/L EXTERNAL AST 10 U/L EXTERNAL Total Bilirubin 0.3 0.1 - 1.4 mg/dL EXTERNAL Bilirubin, Direct 0.1 0.01 - 0.4 mg/dL EXTERNAL Total Protein 7.2 6.4 - 8.2 g/dL EXTERNAL Plasma specimen (specimen) Historical Provider LAB BLOOD ORDERABLES Yoselin l Result Performing Organization Address City/[facility] Co de Phone Number EXTERNAL documented in this encounter Visit Diagnoses Not on filedocumented in this encounter Additional Health Concerns Assessment Noted Time PHQ-9 Depression Total Score: 0 12/06/19 18 3:00 PM EDT documented as of this encounter Care Teams Corporate Security Officer Relationship Specialty Start Date End Date Edgar Fournier MD [address] [place] [address] [place] [address] PCP - General 08/18/17 06/23/21 Maile Valles, RN Txp Post Coordinator Transplant Hepatology 11/07/17 Jack Ordoñez MD [address] [place] [phone] Consulting Physician Transplant Hepatology 01/05/18 documented as of this encounter
--- OUTSIDE RECORDS SUMMARY | 2024-07-12 12:53 | XMS_ITS | Encounter Summary ---
Author Organization Address [address] [place] [address] Care Team Providers Care Deputy Chief Counsel Name Role Phone Edgar Fournier MD Primary Care Provider [phone] Maile Valles RN Unavailable Unavail able Jack Ordoñez MD Unavailable [phone] Estephania Sharif PharmD Unavailable Christine vailable System, Provider Not In Primary Care Provider Un available Edgar Fournier MD Primary Care Provider [phone] Source Comments This information has been disclosed [...] release of HIV test results or diagnoses. [id number] Health Encounter Details Date Type Department Care Team (Late st Contact Info) Description 01/02/2018 Orders Only Outreach Lab [address] [place] [address] Lauren Traore MA Deferred diagnosis on axis I (Primary Dx) Social History Tobacco Use Types [...] Hospital Encounter [facility] Interventional Radiology [address] [place] [address] Herve Carrillo MD 3130 [facility] 3200 [place] [address] documented as of this encounter Results * (ABNORMAL) Serum Prot Electrophoresis w/Free Lt Chains, Reflex to IT (01/02/2018 9:20 AM EDT) IgG 1,080.0 751.0 - 1,560.0 mg/dL 01/04/2018 3:31 PM EDT [facility] IgM 106.0 46.0 - 304.0 mg/dL 01/04/2018 3:31 PM EDT [facility] Albumin, Protein Electrophoresis 3.8 3.70 - 4.90 g/dL 01/04/2018 3:31 PM EDT [facility] IgA 271.0 82.0 - 453.0 mg/dL 01/04/2018 3:31 PM EDT [facility] [place] 23.9(H) 3.3 - 19.4 mg/L 01/04/2018 3:31 PM EDT [facility] Alpha 1 0.4 0.20 - 0.40 g/dL 01/04/2018 3:31 PM EDT [facility] Alpha 2 0.7 0.50 - 1.00 g/dL 01/04/2018 3:31 PM EDT [facility] Lambda 24.9 5.7 - 26.3 mg/L 01/04/2018 3:31 PM EDT [facility] Beta 0.8 0.60 - 1.00 g/dL 01/04/2018 3:31 PM EDT [facility] Gamma Globulin 1.1 0.50 - 1.50 g/dL 01/04/2018 3:31 PM EDT [facility] [place]/Lambda Ratio 0.96 0.26 - 1.65 ratio 01/04/2018 3:31 PM EDT [facility] Total Protein (PE) 6.7 6.4 - 8.9 g/dL 01/02/2018 10:41 AM EDT [facility] M Corey 0.0 g/dL 01/04/2018 3:31 PM EDT [facility] Interpretation (PE) See Note 01/04 3:31 PM EDT [facility] Comment:Normal immunofixatio n. No monoclonal proteins detected. Reviewed by Brionna Cedeño MD and Trav Tierney, PhD. Serum specimen (specimen) 01/02/2018 9:20 AM EDT 01/02/2018 10:04 AM EDT us Provider Not In System LAB BLOOD ORDERABLES Yoselin robles Result [facility] [address] documented in this encounter Visit Diagnoses Diagnosis Deferred diagnosis on axis I- Primary Other unknown and unspecified cause of morbidity [...] documented as of this encounter Care Teams Deputy Chief Counsel Relationship Specialty Start Date End Date dEgar Fournier MD [address] [place] [address] [place] [address] PCP - General 08/18/17 06/23/21 System, Provider Not In PCP - General 06/24/21 12/21/21 Edgar Fournier MD [address] [place] [address] [place] [address] PCP - General 12/22/21 Maile Valles, JANA Txp Post Coordinator Transplant Hepatology 11/07/17 Jack Ordoñez MD [address] [place] [phone] Consulting Physician Transplant Hepatology 01/05/18 Estephania Sharif, DarrianD Pharmacist Pharmacist 11/11/19 documented as of this encounter
--- OUTSIDE RECORDS SUMMARY | 2024-07-12 12:53 | XMS_ITS | Encounter Summary ---
Author Organization [facility] Address [address] [place] [address] Care Team Providers Care Appraisal Manager Name Role Phone Edgar Fournier MD Primary Care Provider [phone] Maile Valles RN Unavailable Unavail able Source [...] release of HIV test results or diagnoses. [id number] Health Encounter Details Date Type Department Care Team (Late st Contact Info) Description 12/07/2017 Refill [facility] Endocrinology at [facility] Office [address] [facility] [address] [place] [address] Gina Glez, RAMON [address] [facility] [place] [address] Type 2 diabetes mellitus without complication, with long-term current use of insulin ([facility]) (Primary Dx) Social History Tobacco Use Types [...] encounter Miscellaneous Notes * Telephone Encounter - Jasmine Crowder LPN - 12/07/2017 12:19 PM EDT Called pharmacy. They need the prescription to say that is a Freestyle margarito, (comes over as generic) and they also need diagnosis codes for Medicare. Re- entered scripts and forwarded to Gina. documented in this encounter Plan of Treatment Upcoming Encounters Date Type Department Care Team (Late st Contact Info) Description 07/15/2024 9:00 AM [facility] Hospital Encounter [facility] Interventional Radiology [address] [place] [phone] Herve Carrillo MD 3130 [facility] Ed [address] [place] [phone] documented as of this encounter Visit Diagnoses Diagnosis Type 2 diabetes mellitus without complication, with long-term current use of insulin ([facility])- Primary documented in this encounter Additional Health Concerns Assessment Noted Time PHQ-9 Depression Total Score: 0 12/06/19 18 3:00 PM EDT documented as of this encounter Care Teams Appraisal Manager Relationship Specialty Start Date End Date Edgar [place] [address] PCP - General 08/18/17 06/23/21 Maile Valles, RN Txp Post Coordinator Transplant Hepatology 11/07/17 documented as of this encounter
--- OUTSIDE RECORDS SUMMARY | 2024-07-12 12:53 | XMS_ITS | Encounter Summary ---
Author Organization Health Address [facility] [place] [address] Care Team Providers Care Rock Crusher Name Role Phone Edgar Fournier MD Primary Care Provider [phone] Maile Valles RN Unavailable Unavail able Jack Ordoñez MD Unavailable [phone] Source Comments This information has been [...] release of HIV test results or diagnoses. [id number] Health Encounter Details Date Type Department Care Team (Late st Contact Info) Description 01/04/2018 Telephone [facility] Liver Transplant at Outpatient [address] [address] Latrice Brice MA Social History [...] Telephone Encounter - Latrice Brice MA - 01/04/2018 9:47 AM EDT Aiden returned call and this MA went over labs that major donor coordinator JANA Coles reviewed. This MA explained there are still test pending so Aiden requested a coordinator call him when everything hasresulted to go over. 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 Will routemessage to major donor coordinator JANA Coles documented in this encounter Plan of Treatment Upcoming Encounters Date Type Department Care Team (Late st Contact Info) Description 07/15/2024 9:00 AM EST Hospital Encounter [facility] Interventional Radiology [address] [place] [phone] Herve Carrillo MD [address] [facility] 3[address] [place] [address] documented as of this encounter Visit Diagnoses Not on filedocumented in this encounter Additional Health Concerns Assessment Noted Time PHQ-9 Depression Total Score: 0 12/06/19 18 3:00 PM EDT documented as of this encounter Care Teams Rock Crusher Relationship Specialty Start Date End Date Edgar Fournier MD [address] [place] [phone] PCP - General 08/18/17 06/23/21 Maile Valles, JANA Txp Post Coordinator Transplant Hepatology 11/07/17 Jack Ordoñez MD [address] [place] [address] Consulting Physician Transplant Hepatology 01/05/18 documented as of this encounter
--- OUTSIDE RECORDS SUMMARY | 2024-07-12 12:53 | XMS_ITS | Encounter Summary ---
Author Organization [facility] Address [facility] [place] [address] Care Team Providers Care Motel Maid Name Role Phone Edgar Fournier MD Primary Care Provider [phone] Maile Valles RN Unavailable Unavail able Jack Ordoñez MD Unavailable [phone] Source Comments This information has been [...] release of HIV test results or diagnoses. [id number] Reason for Referral * Physician/ANUSHA (Routine) - Closed Specialty Diagnoses / Procedures Referred By Declan hines Referred To Contact [facility] Neurology Diagnoses Neuropathy Pain in both feet [facility] Liver Transplant at Outpatient [address] [address] Phone: tel: fax: Referral ID Status Reason Start Date Expiration Date Visits Re quested Visits Authorized [id number] Closed 01/22/2018 07/21/2018 1 0 Scheduling Instructions For appointments, please call [phone]. Encounter Details Date Type Department Care Team (Late st Contact Info) Description 01/22/2018 Telephone [facility] Liver Transplant at Outpatient [place] [address] [place] [phone] Maile Valles, RN Social History Tobacco Use [...] Telephone Encounter - Latrice Brice MA - 01/23/2018 4:14 PM EDT This REBEKAH spoke with Aiden regarding pentamidine treatments scheduled on 01-25-18 with a 10 am arrivaltime and scheduled a pentamidine for 02-26-18 with a 10:30 am arrival time. Aiden verbalized understanding both appointment day and times * Telephone Encounter - Latrice Brice MA - 01/23/2018 3:35 PM EDT This REBEKAH spoke with Aiden regarding neurology referral phone number and supplied that to Aiden to call to schedule an appointment [phone]. * Telephone Encounter - Maile Jean Baptiste RN - 01/22/2018 3:36 PM EDT Patient called regarding dapsone. Believes that the dapsone is causing BLE edema and would like to discontinue. Returning to bactrim previously d/w Transplant Pharmacist and cannot switch back due torenal function. Patient agreeable to switching back to pentamidine despite having to travel to [place]. Patient requesting referral to Neurology at . [facility] to schedule patient for pentamidine treatments and provide information on referral. documented in this encounter Plan of Treatment Upcoming Encounters Date Type Department Care Team (Late st Contact Info) Description 07/15/2024 9:00 AM EST Hospital Encounter [facility] Interventional Radiology [address] [place] [phone] Herve Carrillo MD 3130 [facility] 3[address] [place] [phone] Scheduled Referrals Name Type Priority Associated Diagnoses Orde r Schedule Neurology Outpatient Referral Routine Neuropathy Pain in both feet Ordered: 01/22/2018 documented as of this encounter Visit Diagnoses Diagnosis S/P liver transplant (CMS-HCC)- Primary Immunosuppression (CMS-HCC) Neuropathy Mononeuritis of unspecified site Pain in both feet documented in this encounter Additional Health Concerns Assessment Noted Time PHQ-9 Depression Total Score: 0 12/06/19 18 3:00 PM EDT documented as of this encounter Care Teams Motel Maid Relationship Specialty Start Date End Date Edgar Fournier MD [address] [place] [address] [place] [address] PCP - General 08/18/17 06/23/21 Maile Valles, JANA Txp Post Coordinator Transplant Hepatology 11/07/17 Jack Ordoñez MD [address] [place] [phone] Consulting Physician Transplant Hepatology 01/05/18 documented as of this encounter
--- OUTSIDE RECORDS SUMMARY | 2024-07-12 12:53 | XMS_ITS | Encounter Summary ---
Author Organization Health Address [facility] [place] [address] Care Team Providers Care Roll Icer Name Role Phone Edgar Fournier MD Primary Care Provider [phone] Maile Valles RN Unavailable Unavail able Source [...] release of HIV test results or diagnoses. [id number] Health Encounter Details Date Type Department Care Team (Late st Contact Info) Description 01/02/2018 Social Work [facility] SOCIAL WORK [address] [place] [address] Chiquita Rosado MSW [address] [place] [address] Social History Tobacco Use Types Packs/Day Years [...] encounter Progress Notes * RADHA Kline - 01/02/2018 11:23 AM EDT Social Work Note- Outpatient Liver Transplant Patient is status post liver transplant on 10/08/17. Met with patient and patient's during post liver transplant clinic. Provided patient with gas card, $100. Patient has $300 remaining. Patient reports the last gift card given only had $65 on card, when there should have been $100. Patient to bring card to next visit to allow this worker to assist in getting the remaining balance. No other needs identified. SW to follow. RADHA Kline, KNITTER HAND [phone] documented in this encounter Plan of Treatment Upcoming Encounters Date Type Department Care Team (Late st Contact Info) Description 07/15/2024 9:00 AM [facility] Hospital Encounter [facility] Interventional Radiology [address] [place] [phone] Herve Carrillo MD [address] [facility] [address] [place] [phone] documented as of this encounter Visit Diagnoses Not on filedocumented in this encounter Additional Health Concerns Assessment Noted Time PHQ-9 Depression Total Score: 0 12/06/19 18 3:00 PM EDT documented as of this encounter Care Teams Roll Icer Relationship Specialty Start Date End Date Edgar Fournier MD [address] [place] [address] [place] [address] PCP - General 08/18/17 06/23/21 Maile Valles, RN Txp Post Coordinator Transplant Hepatology 11/07/17 documented as of this encounter
--- OUTSIDE RECORDS SUMMARY | 2024-07-12 12:53 | XMS_ITS | Encounter Summary ---
Author Organization Health Address [facility] [place] [address] Care Team Providers Care Real Estate Administrative Assistant Name Role Phone Edgar Fournier MD Primary Care Provider [phone] Maile Valles RN Unavailable Unavail able Jack Ordoñez MD Unavailable [phone] Source Comments This information has been [...] release of HIV test results or diagnoses. [id number] Health Encounter Details Date Type Department Care Team (Late st Contact Info) Description 01/10/2018 Orders Only [facility] [phone] Latrice Brice MA Transplanted liver ([facility]); Drug therapy Social History Tobacco Use [...] [facility] [address] [place] [phone] Herve Carrillo MD [address] [facility] [address] Surgery [place] [phone] documented as of this encounter Visit Diagnoses Diagnosis Transplanted liver (CMS-HCC) Liver replaced by transplant Drug therapy Encounter for other specified aftercare documented in this encounter Additional Health Concerns Assessment Noted Time PHQ-9 Depression Total Score: 0 12/06/19 18 3:00 PM EDT documented as of this encounter Care Teams Real Estate Administrative Assistant Relationship Specialty Start Date End Date Edgar Fournier MD [address] [place] [address] [place] [address] PCP - General 08/18/17 06/23/21 Maile Valles, RN Txp Post Coordinator Transplant Hepatology 11/07/17 Jack Ordoñez MD [address] [place] [phone] Consulting Physician Transplant Hepatology 01/05/18 documented as of this encounter
--- OUTSIDE RECORDS SUMMARY | 2024-07-12 12:53 | XMS_ITS | Encounter Summary ---
Author Organization [facility] Address [facility] [place] [address] Care Team Providers Care Beauty Advisor Name Role Phone Edgar Fournier MD Primary Care Provider [phone] Maile Valles RN Unavailable Unavail able Source [...] release of HIV test results or diagnoses. [id number] Health Reason for Visit * Reason Comments Liver Transplant Follow-up Encounter Details Date Type Department Care Team (Late st Contact Info) Description 01/02/2018 9:30 AM EDT Office Visit [facility] Liver Transplant at Outpatient [address] [address] Unknown, Attending Provider Chetan Gallagher MD Encounter for therapeutic drug level monitoring (Primary Dx); Immunosuppression (CMS-HCC); Liver transplant recipient (CMS-HCC); Liver transplanted ([facility]) Social History Tobacco Use Types [...] Sign Reading Time Taken Comments Blood Pressure 177/101 01/02/2018 7:00 AM EDT Pulse 94 01/02/2018 7:00 AM EDT Temperature 36.7 ??C (98 ??F) 01/02/2018 7:00 AM EDT Respiratory Rate 18 01/02/2018 7:00 AM EDT Oxygen Saturation 96% 01/02/2018 7:00 AM EDT Inhaled Oxygen Concentration 96% 01/02/2018 7 :00 AM EDT Weight 112.9 kg (249 lb) 01/02/2018 7:00 AM EDT Height 170.2 cm (5' 7 ) 01/02/2018 7:00 AM EDT Body Mass Index 39 01/02/2018 7:00 AM EDT documented in this encounter Patient Instructions * Patient Instructions* America Vazquez MD - 01/02/2018 9:30 AM EDT 1. Continue cyclosporine 150 mg twice daily, will adjust based on trough 2. Continue cellcept 500 mg twice daily 3. Start dapsone 100 mg daily, discontinue pentamadine 4. Continue entecavir 5. Continue current blood pressure medications, transition hypertension management to primary care provider 6. Insulin adjustment per primary care physician 7. Labs every other week 8. Return to clinic in 2 months documented in this encounter Progress Notes * Connie Hand MA - 01/02/2018 9:30 AM EDT Review of Systems Constitutional: Negative. HENT: Negative. Eyes: Negative. Respiratory: Negative. Cardiovascular: Negative. Gastrointestinal: Negative. Genitourinary: Negative. Musculoskeletal: Positive for back pain. Skin: Negative. Neurological: Positive for tingling. Endo/Heme/Allergies: Negative. Psychiatric/Behavioral: Negative. * Nora Ashley, PharmD - 01/02/2018 9:30 AM EDT Transplant Pharmacist Assessment and Recommendations: Current Outpatient Prescriptions Medication Sig ??? aspirin 81 MG chewable tablet Chew 1 tablet (81 mg total) by mouth daily with breakfast. ??? blood sugar diagnostic Strp Use to test blood sugar up to 4 times a day. Diagnosis for use: E 9.65. For use with One Touch Verio meters. ??? blood-glucose meter (Netology VERIO SYSTEM) [facility] Use as instructed. ??? carvedilol (COREG) 25 MG tablet Take 2 tablets (50 mg total) by mouth 2 times a day with meals.(Patient taking differently: Take 25 mg by mouth 2 times a day with meals. ) ??? cyclobenzaprine (FLEXERIL) 10 MG tablet Take 10 mg by mouth 3 times a day as needed for Muscle spasms. ??? cycloSPORINE modified (NEORAL/GENGRAF) 25 MG capsule Take 2 tablets (50 mg) daily in addition to 100 mg tablets twice daily (total 150 mg twice daily) Indications: Prevention of Liver Transplant Rejection (Patient taking differently: Take 150 mg by mouth 2 times a day. Take 2 tablets (50 mg) daily in addition to 100 mg tablets twice daily (total 150 mg twice daily) Indications: Prevention of Liver Transplant Rejection ) ??? entecavir (BARACLUDE) 1 MG tablet Take 1 tablet (1 mg total) by mouth daily. ??? ergocalciferol (ERGOCALCIFEROL) 50,000 unit capsule Take 1 capsule (50,000 Units total) by mouth once a week. ??? esomeprazole (NEXIUM) 40 MG capsule Take 1 capsule (40 mg total) by mouth every morning before breakfast. (Patient taking differently: Take 40 mg by mouth every morning before breakfast. Taking every other day ) ??? flash glucose scanning reader (FREESTYLE LEONEL READER) [facility] Use 1 each as directed See Admin Instructions. [employer] Freestyle Leonel [place] ??? flash glucose sensor (FREESTYLE LEONEL SENSOR) Kit Use 1 kit as directed See Admin Instructions.[employer] Freestyle Leonel Sensor Use 1 kit (sensor) every 10 days as directed ??? flash glucose sensor Kit Use 1 each as directed every 30 days. Every 10 days ??? gabapentin (NEURONTIN) 600 MG tablet Take 1.5 tablets (900 mg total) by mouth 3 times a [...] 2 times a day. ??? NIFEdipine (PROCARDIA-XL) 60 MG (OSM) 24 hr tablet TAKE 1 TABLET BY MOUTH ONCE DAILY ??? pen needle, diabetic 32 gauge x 5/32 Ndle Use as directed to inject insulin 4 times daily. ??? pen needle, diabetic 32 gauge x 5/32 Ndle For use with insulin pen. Use as instructed. ??? pramipexole (MIRAPEX) 1 MG tablet Take 1 mg by mouth daily. ??? valGANciclovir (VALCYTE) 450 mg tablet Take 2 tablets (900 mg total) by mouth daily. No current facility-administered medications for this visit. Immunosuppression: THYMO BRIDGE Perioperative immunosuppression regimen included: steroid taper, MMF, tacrolimus and Thymoglobulin (175mg x 1 dose on 10/09/17) Currently on cyclosporine 150??mg bid and mycophenolate 500mg bid. Prednisone tapered and discontinued early to assist with blood sugar management. ?? Reports he mistakenly took cyclosporine 125mg bid x 5 days and around the time of last labs (12/20/17). He realized his mistake and corrected. Reason for CsA use: switched on 10/23 due to significant tremors. Reports tremors improved significantly with cyclosporine. Still complains of feet numbing/tingling pain. Administers medications at: 9AM, 3PM and 9PM. ??Immunosuppression at 9AM and 9PM. Goal CSA level per protocol is 100-150 ng/mL. Latest Tacrolimus level: Tacrolimus by Immunoassay Date Value Ref Range Status 11/02/2017 -- Final 10/31/2017 -- Final Rejection in the past 12 months: none Prophylaxis:?? Estimated Creatinine Clearance: 68.8 mL/min (A) (based on SCr of 1.66 mg/dL (H)). Viral (Valcyte 900mg daily): 6??months??per protocol (D+/R-). ??Discontinue: 04/07/18. NOTE: was instructed per txp team to discontinue 11/23; was restarted the next visit 12/05. PCP (Pentamidine, switched from bactrim due to hyperkalemia): 6??months per protocol. ??Discontinue: 04/07/18. Last pentamidine dose 11/23/17. Due for another. Patient wants to switch to oral therapy. GD6P ordered and pending for today. ASA: hepatic artery reconstruction Anti-HBcAb +/ALEXANDRA + donor: No HBIG given since HepB surface antibody 171. On entecavir 1 mg daily for life ?? Blood Sugars: diabetic prior to transplant Reviewed log: AM: 114-166, lunch: 49-269, dinner: 101-257, bedtime: 100-277. On bolus and correction insulin. Multiple elevated levels. Discussed with Dr. Vazquez, plan is for patient to see PCP regarding management. ?? Blood pressure: on coreg and nifedipine 177-101, pulse 94 today. Took medications right at time BP taken in clinic. Reviewed log, also elevated. Reports takes BP at home around time of medications are due. Discussed with Dr. Vazquez, plan is for patient to see PCP for management. ?? Leg/feet cramping: On gabapentin 900 mg TID (on 600 TID prior to transplant, dose increased by PCP), flexeril PRN and PCP recently initiated pramipexole 1mg at bedtime. Reports discontinued the magnesium oxide AND SloMag per Dr. Rossi recommendation. Adherence: Patient reports missing 0??doses in the past 7 days The following barriers to adherence have been identified: None It is my assessment that the patient demonstrates good??adherence and medication understanding. assists with medication management. She reviewed medication card with me in clinic today. Of note: patient mistakenly adjusted cyclosporine dose as described above. ?? Recommendations: 1. Cyclosporine: follow up on level from today and adjust as necessary. 2. Dapsone: initiate for PCP prophylaxis. GD6P drawn today, results pending. 3. Nexium: taking every 3 days without symptoms with plans to discontinue once the bottle is empty. 4. BP: to see PCP for management 5. BS: to see PCP for management * Chetan Gallagher MD - 01/02/2018 9:30 AM EDT Subjective: Aiden Stauffer is a 42 y.o. 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 He received a [facility] high risk donor, who was HBV ALEXANDRA +, HCV Ab+, ALEXANDRA negative and therefore will be on lifelong entecavir. Post-operative course was complicated by altered mental status and severe tremors thought to be related to tacrolimus toxicity, as well as hypoxia. Immunosuppression was standard. Liver tests are normal on cyclosporine 150 mg twice daily (switcheddue to neurologic toxicity from tacrolimus) and cellcept 500 mg twice daily. Antimicrobial prophylaxis includes pentamadine (bactrim d/c due to renal dysfunction, stop date 04/07/18) and valcyte (stopdate 04/07/18). Cr 1.6, Hgb 10.8. Co-morbidities include hypertension for which he is on nifedipine and coreg, and DM for which he is on insulin. With regards to the hypoxia he was evaluated by pulmonology and it was felt to be multifactorial from hepatopulmonary syndrome (noted on pre-op echo), volume overload and atelectasis. He underwent VQ scan which was negative for PE and CT chest was was relatively unremarkable. This has resolved without intervention. He presents today for followup with his . He is overall doing very well and is very pleased with how well he feels. He is active and eating well, doing the things that he wants to do. No specificcomplaints today, wants to space out his followup. The following portions of the patient's history were reviewed and updated as appropriate: allergies, current medications, past family history, past medical history, past social history, past surgicalhistory and problem list. Review of systems performed. See scanned review of systems form for details. Objective: Physical Exam Nursing note and vitals [...] laboratory results were reviewed. Assessment & Plan: 42 y.o. 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 He received a [facility] high risk donor, who was HBV ALEXANDRA +, HCV Ab+, ALEXANDRA negative and therefore will be on lifelong entecavir. Post-operative course was complicated by altered mental status and severe tremors thought to be related to tacrolimus toxicity, as well as hypoxia secondary to HPS, volume overload and atelectasis. Immunosuppression was standard. Liver tests are normal on cyclosporine 150 mg twice daily (switched due to neurologic toxicity from tacrolimus) and cellcept 500 mg twice daily. Antimicrobial prophylaxis includes pentamadine (bactrim d/c due to renal dysfunction, stop date 04/07/18) and valcyte (stop date 04/07/18). Cr 1.6,Hgb 10.8. Co-morbidities include HTN and DM. We are overall very pleased with his course. 1. Continue cyclosporine 150 mg twice daily, will adjust based on trough 2. Continue cellcept 500 mg twice daily 3. Start dapsone 100 mg daily, discontinue pentamadine 4. Continue entecavir 5. Continue current blood pressure medications, transition hypertension management to primary care provider 6. Insulin adjustment per primary care physician 7. Followup [facility] high risk labs from today 8. Labs every other week 9. Return to clinic in 2 months America Vazquez MD Transplant Hepatology Fellow I saw and examined the patient on 01/02/18. I discussed with Dr Vazquez, hepatology fellow and agree with her findings and plan as documented in the note. Chetan Gallagher MD GI & Hepatology staff Pgr: [phone] * Sharyn Villalba RN - 01/02/2018 9:30 AM EDT After visit summary including patient instructions reviewed with patient and Medication list reviewed and updated. Checked with patient to see if prescription refills and/or lab orders were needed. Updated preferred pharmacy and preferred lab information in patient demographics. Care coordinated with other team members and other medical providers as needed. Patient presents with the following needs: patient to contact PCP - they will manage HTN and DM. documented in this encounter Plan of Treatment Upcoming Encounters Date Type Department Care Team (Late st Contact Info) Description 07/15/2024 9:00 AM EST Hospital Encounter [facility] Interventional Radiology [address] [place] [phone] Herve Carrillo MD [address] [facility] 3207 [place] [phone] documented as of this encounter Visit Diagnoses Diagnosis Encounter for therapeutic drug level monitoring- Primary Immunosuppression (CMS-HCC) Liver transplant recipient (CMS-HCC) Liver transplanted (CMS-HCC) Liver replaced by transplant documented in this encounter Additional Health Concerns Assessment Noted Time PHQ-9 Depression Total Score: 0 12/06/19 18 3:00 PM EDT documented as of this encounter Care Teams Beauty Advisor Relationship Specialty Start Date End Date Edgar Fournier MD [address] [place] [address] PCP - General 08/18/17 06/23/21 Maiel Valles, RN Txp Post Coordinator Transplant Hepatology 11/07/17 documented as of this encounter
--- OUTSIDE RECORDS SUMMARY | 2024-07-12 12:53 | XMS_ITS | Encounter Summary ---
Author Organization Health Address [facility] [place] [address] Care Team Providers Care Ballistics Teacher Name Role Phone Edgar Fournier MD Primary Care Provider [phone] Maile Valles RN Unavailable Unavail able Jack Ordoñez MD Unavailable [phone] Source Comments This information has been [...] release of HIV test results or diagnoses. [id number] Health Encounter Details Date Type Department Care Team (Late st Contact Info) Description 01/17/2018 Chart Note [facility] [phone] Latrice Brice MA Social History Tobacco Use [...] Hospital Encounter [facility] Interventional Radiology [address] [place] [phone] Herve Carrillo MD [address] [place] [address] documented as of this encounter Procedures Procedure Name Priority Date/Time Associated Diagnosis Comments HEPATIC FUNCTION PANEL Routine 01/15/2018 10:26 AM EDT CYCLOSPORINE LEVEL Routine 01/15/2018 10 :26 AM EDT CBC AND DIFFERENTIAL Routine 01/15/2018 10:26 AM EDT MAGNESIUM Routine 01/15/2018 10:26 AM EDT RENAL FUNCTION PANEL W/O EGFR Routine 01/15/2018 10:26 AM EDT documented in this encounter Results * Cyclosporine level (01/15/2018 10:26 AM EDT) Cyclosporine, Blood 93 Whole blood specimen (specimen) Historical Provider LAB BLOOD ORDERABLES Yoselin l Result * (ABNORMAL) Magnesium (01/15/2018 10:26 AM EDT) Magnesium 1.4(A) 1.6 - 2.4 mg/dL EXTERNAL Plasma specimen (specimen) Historical Provider LAB BLOOD ORDERABLES Yoselin l Result EXTERNAL * (ABNORMAL) Renal Function Panel w/o EGFR (01/15/2018 10:26 AM EDT) BUN/Creatinine Ratio 16.9 EXTERNAL Glucose 130 mg/dL EXTERNAL BUN 27(A) 4 - 21 mg/dL EXTERNAL CO2 30(A) 13 - 22 mmol/L EXTERNAL Creatinine 1.6(A) 0.6 - 1.3 mg/dL EXTERNAL Potassium 4.5 3.4 - 5.3 mmol/L EXTERNAL Sodium 145 137 - 147 mmol/L EXTERNAL Chloride 109(A) 99 - 108 mmol/L EXTERNAL Albumin 3.3 EXTERNAL Phosphorus 4.1 2.5 - 4.9 mg/dL EXTERNAL Calcium 9.2 8.7 - 10.7 mg/dL EXTERNAL EGFR 50 mg/dL EXTERNAL Blood specimen (specimen) Historical Provider LAB BLOOD ORDERABLES Yoselin robles Result Performing Organization Address City/[facility] Co de Phone Number EXTERNAL * (ABNORMAL) CBC and differential (01/15/2018 10:26 AM EDT) Pathologist [facility] Hemoglobin 10.9(A) 13.5 - 17.5 g/dL EXTERNAL Hematocrit 32.8(A) 41 - 53 % EXTERNAL RDW 13.9 11.5 - 14.5 % EXTERNAL Lymphocytes Absolute 0.6 /??L EXTERNAL Monocytes Absolute 0.1 /??L EXTERNAL Eosinophils Absolute 0 /??L EXTERNAL Basophils Absolute 0 /??L EXTERNAL Neutrophils Relative 79(A) 46 - 78 % EXTERNAL Lymphocytes Relative 15(A) 18 - 52 % EXTERNAL Monocytes Relative 3 3 - 10 % EXTERNAL Eosinophils Relative 0 0 - 6 % EXTERNAL Basophils Relative 0 0 - 3 % EXTERNAL Neutrophils Absolute 3.2 /??L EXTERNAL MCH 31.3 26.0 - 34.0 pg EXTERNAL MCHC 33.2 30 - 37 g/dL EXTERNAL MCV 94.3 82.0 - 108.0 fL EXTERNAL Platelets 251 K/??L EXTERNAL RBC 3.48(A) 4.50 - 5.90 10^6/??L EXTERNAL WBC 4 10^3/mL EXTERNAL Blood specimen (specimen) Historical Provider LAB BLOOD ORDERABLES Yoselin robles Result EXTERNAL * Hepatic Function Panel (01/15/2018 10:26 AM EDT) Alkaline Phosphatase 132 U/L EXTERNAL ALT 17 U/L EXTERNAL AST 13 U/L EXTERNAL Total Bilirubin 0.3 0.1 - 1.4 mg/dL EXTERNAL Total Protein 6.6 6.4 - 8.2 g/dL EXTERNAL Plasma specimen (specimen) us Historical Provider LAB BLOOD ORDERABLES Yoselin l Result EXTERNAL documented in this encounter Visit Diagnoses Not on filedocumented in this encounter Additional Health Concerns Assessment Noted Time PHQ-9 Depression Total Score: 0 12/06/19 18 3:00 PM EDT documented as of this encounter Care Teams Ballistics Teacher Relationship Specialty Start Date End Date Edgar Fournier MD [address] [place] [address] [place] [address] PCP - General 08/18/17 06/23/21 Maile Valles, JANA Txp Post Coordinator Transplant Hepatology 11/07/17 Jack Ordoñez MD [facility] [place] [address] Consulting Physician Transplant Hepatology 01/05/18 documented as of this encounter
--- OUTSIDE RECORDS SUMMARY | 2024-07-12 12:53 | XMS_ITS | Encounter Summary ---
Author Organization Health Address [address] [place] [address] Care Team Providers Care Parole Officer Name Role Phone Edgar Fournier MD Primary Care Provider [phone] Maile Valles RN Unavailable Unavail able Source [...] release of HIV test results or diagnoses. [id number] Health Reason for Visit * Reason Onset Date Comments Results 12/20/2017 Encounter Details Date Type Department Care Team (Late st Contact Info) Description 12/20/2017 Telephone [facility] Liver Transplant at Outpatient [address] [address] Maile Valles, AJNA Results Social History Tobacco Use Types Packs/Day [...] Encounter - Maile Jean Baptiste RN - 12/22/2017 1:45 PM EDT CSA 112, goal 100-150. Will continue to monitor as per previously determined lab intervals. * Telephone Encounter - Maile Jean Baptiste RN - 12/20/2017 3:49 PM EDT Lab results from 12/20/17 reviewed and are normal or without clinically significant abnormalities. CSA pending. documented in this encounter Plan of Treatment Upcoming Encounters Date Type Department Care Team (Late st Contact Info) Description 07/15/2024 9:00 AM [facility] Hospital Encounter [facility] Interventional Radiology [address] [place] [phone] Herve Carrillo MD [address] [facility] 3[address] Surgery [place] [phone] documented as of this encounter Visit Diagnoses Not on filedocumented in this encounter Additional Health Concerns Assessment Noted Time PHQ-9 Depression Total Score: 0 12/06/19 18 3:00 PM EDT documented as of this encounter Care Teams Parole Officer Relationship Specialty Start Date End Date Edgar Fournier MD [address] [place] [address] [place] [address] PCP - General 08/18/17 06/23/21 Maile Valles, JANA Txp Post Coordinator Transplant Hepatology 11/07/17 documented as of this encounter
--- OUTSIDE RECORDS SUMMARY | 2024-07-12 12:53 | XMS_ITS | Encounter Summary ---
Author Organization Health Address [address] [place] [address] Care Team Providers Care Glue Mixer Name Role Phone Edgar Fournier MD Primary Care Provider [phone] Maile Valles RN Unavailable Unavail able Jack Ordoñez MD Unavailable [phone] Source Comments This information has been [...] release of HIV test results or diagnoses. [id number] Health Encounter Details Date Type Department Care Team (Late st Contact Info) Description 02/01/2018 Abstract [facility] G[facility]ology at [facility] [address] [facility] [address] [place] [phone] Yoli Mcbride MA Social History Tobacco Use [...] [facility] Interventional Radiology [address] [place] [phone] Herve Carrillo MD [address] [place] [address] documented as of this encounter Procedures Procedure Name Priority Date/Time Associated Diagnosis Comments GLUCOSE, RANDOM Routine 01/30/2018 9:38 AM EDT RENAL FUNCTION PANEL W/O EGFR Routine 01/30/2018 9:38 AM EDT documented in this encounter Results * Glucose, random (01/30/2018 9:38 AM EDT) Glucose 191 60 - 200 mg/dL Plasma specimen (specimen) Historical Provider LAB BLOOD ORDERABLES Yoselin l Result * (ABNORMAL) Renal Function Panel w/o EGFR (01/30/2018 9:38 AM EDT) Creatinine 2.0 BUN 39(A) 4 - 21 mg/dL Potassium 5.4(A) 3.4 - 5.3 mmol/L Sodium 141 137 - 147 mmol/L Chloride 107 99 - 108 mmol/L Calcium 8.7 8.7 - 10.7 mg/dL Blood specimen (specimen) Historical Provider LAB BLOOD ORDERABLES Yoselin l Result documented in this encounter Visit Diagnoses Not on filedocumented in this encounter Additional Health Concerns Assessment Noted Time PHQ-9 Depression Total Score: 0 12/06/19 18 3:00 PM EDT documented as of this encounter Care Teams Glue Mixer Relationship Specialty Start Date End Date Edgar Fournier MD [address] [place] [phone] PCP - General 08/18/17 06/23/21 Maile Valles, JANA Txp Post Coordinator Transplant Hepatology 11/07/17 Jack Ordoñez MD [address] [place] [address] Consulting Physician Transplant Hepatology 01/05/18 documented as of this encounter
--- OUTSIDE RECORDS SUMMARY | 2024-07-12 12:53 | XMS_ITS | Encounter Summary ---
Author Organization Health Address [facility] [place] [address] Care Team Providers Care Cardiopulmonary Supervisor Name Role Phone Edgar Fournier MD Primary Care Provider [phone] Maile Valles RN Unavailable Unavail able Jack Ordoñez MD Unavailable [phone] Source Comments This information has been [...] release of HIV test results or diagnoses. [id number] [facility] Encounter Details Date Type Department Care Team (Late st Contact Info) Description 01/16/2018 Telephone [facility] Liver Transplant at Outpatient [address] [address] Latrice Brice MA Social History [...] Miscellaneous Notes * Telephone Encounter - Latrice Briec MA - 01/16/2018 9:45 AM EDT Aiden called stating that ever since he has started taking the medication Dapsone he has had a lot of swelling in his legs. Aiden states he feels like he is retaining a lot of fluid in his calves down into his feet and in his hands. Aiden denies any other symptoms. Aiden states he can hardly walk to due this and would like advice and what to do. Aiden stated he does elevate them and it helps a little. Will route message to field care coordinator JANA Gr to advise documented in this encounter Plan of Treatment Upcoming Encounters Date Type Department Care Team (Late st Contact Info) Description 07/15/2024 9:00 AM EST Hospital Encounter [facility] Interventional Radiology [address] [place] [phone] Herve Carrillo MD [address] [facility] [address] [place] [phone] documented as of this encounter Visit Diagnoses Not on filedocumented in this encounter Additional Health Concerns Assessment Noted Time PHQ-9 Depression Total Score: 0 12/06/19 18 3:00 PM EDT documented as of this encounter Care Teams Cardiopulmonary Supervisor Relationship Specialty Start Date End Date Edgar Fournier MD [address] [place] [address] [place] [address] PCP - General 08/18/17 06/23/21 Maile Valles, JANA Txp Post Coordinator Transplant Hepatology 11/07/17 Jack Ordoñez MD [address] [place] [phone] Consulting Physician Transplant Hepatology 01/05/18 documented as of this encounter
--- OUTSIDE RECORDS SUMMARY | 2024-07-12 12:53 | XMS_ITS | Encounter Summary ---
Author Organization Health Address [facility] [place] [address] Care Team Providers Care Director Dance Name Role Phone Edgar Fournier MD Primary Care Provider [phone] Maile Valles RN Unavailable Unavail able Jack Ordoñez MD Unavailable [phone] Source Comments This information has been [...] release of HIV test results or diagnoses. [id number] [facility] Encounter Details Date Type Department Care Team (Late st Contact Info) Description 12/12/2017 Telephone [facility] Liver Transplant at Outpatient [address] [address] Latrice Brice MA Social History [...] Telephone Encounter - Latrice Brice MA - 12/12/2017 4:03 PM EDT This MA spoke with Aiden regarding his pentamidine treatment being rescheduled to 5-15-18 after hisfollow up appointment in transplant. Aiden verbalized understanding documented in this encounter Plan of Treatment Upcoming Encounters Date Type Department Care Team (Late st Contact Info) Description 07/15/2024 9:00 AM EST Hospital Encounter [facility] Interventional Radiology [address] [place] [phone] Herve Carrillo MD [address] [facility] [address] [place] [phone] documented as of this encounter Visit Diagnoses Not on filedocumented in this encounter Additional Health Concerns Assessment Noted Time PHQ-9 Depression Total Score: 0 12/06/19 18 3:00 PM EDT documented as of this encounter Care Teams Director Dance Relationship Specialty Start Date End Date Edgar Fournier MD [address] [place] [address] [place] [address] PCP - General 08/18/17 06/23/21 Maile Valles, JANA Txp Post Coordinator Transplant Hepatology 11/07/17 Jack Ordoñez MD [address] [place] [phone] Consulting Physician Transplant Hepatology 01/05/18 documented as of this encounter
--- OUTSIDE RECORDS SUMMARY | 2024-07-12 12:53 | XMS_ITS | Encounter Summary ---
Author Organization Health Address [address] [place] [address] Care Team Providers Care Stenotype Machine Operator Name Role Phone Edgar Fournier MD Primary Care Provider [phone] Maile Valles RN Unavailable Unavail able Jack Ordoñez MD Unavailable [phone] Source Comments This information has been [...] release of HIV test results or diagnoses. [id number] Health Encounter Details Date Type Department Care Team (Late st Contact Info) Description 01/25/2018 10:00 AM EDT Clinical Support [facility] at [facility] [address] [place] [address] Unknown, Attending Provider Leonidas Ojeda RN Preventative health care (Primary Dx) Social History Tobacco Use Types [...] Reading Time Taken Comments Blood Pressure 133/72 01/25/2018 11:34 AM EDT Pulse 80 01/25/2018 11:34 AM EDT Temperature 36.8 ??C (98.2 ??F) 01/25/2018 11:34 AM E DT Respiratory Rate 16 01/25/2018 11:34 AM EDT Oxygen Saturation 96% 01/25/2018 11:34 AM EDT Inhaled Oxygen Concentration 96% 01/25/2018 1 1:34 AM EDT Weight - - Height - - Body Mass Index - - documented in this encounter Progress Notes * Leonidas Ojeda RN - 01/25/2018 10:00 AM EDT A & O pt verbalized understanding of pentamidine tx purpose. He has used his inhaler prior to start of tx today. VS WNL, LCTA prior to start of tx. Pentamidine 300 mg/vial reconstituted with 6 ml sterile H2O, instilled in handheld nebulizer. NebuPent Lot [id number], exp 08/14/19. [facility] [place] [phone]. Cardiovascular Technologist - TherOx. LCTA after tx ended -- pt denies s/s of distress. His transplant team is scheduling his treatments. documented in this encounter Plan of Treatment Upcoming Encounters Date Type Department Care Team (Late st Contact Info) Description 07/15/2024 9:00 AM EST Hospital Encounter [facility] Interventional Radiology [address] [place] [phone] Herve [facility]illo MD [address] [facility] [address] Surgery [place] [phone] documented as of this encounter Visit Diagnoses Diagnosis Preventative health care- Primary Routine general medical examination at a health care facility documented in this encounter Additional Health Concerns Assessment Noted Time PHQ-9 Depression Total Score: 0 12/06/19 18 3:00 PM EDT documented as of this encounter Care Teams Stenotype Machine Operator Relationship Specialty Start Date End Date Edgar Fournier MD [address] [place] [address] PCP - General 08/18/17 06/23/21 Maile Valles, JANA Txp Post Coordinator Transplant Hepatology 11/07/17 Jack Ordoñez MD [address] [place] [address] Consulting Physician Transplant Hepatology 01/05/18 documented as of this encounter
--- OUTSIDE RECORDS SUMMARY | 2024-07-12 12:54 | XMS_ITS | Encounter Summary ---
Author Organization [facility] Address [facility] [place] [address] Care Team Providers Care Advertisement Compositor Name Role Phone Edgar Fournier MD Primary Care Provider [phone] Maile Valles RN Unavailable Unavail able Source [...] release of HIV test results or diagnoses. [id number] Health Reason for Visit * Reason Comments Liver Transplant Follow-up Encounter Details Date Type Department Care Team (Late st Contact Info) Description 11/23/2017 1:00 PM EDT Office Visit [facility] Liver Transplant at Outpatient [address] [address] Micha Diaz MD S/P liver transplant ([facility]) (Primary Dx); Immunosuppression ([facility]) Social History Tobacco Use Types Packs/Day [...] Sign Reading Time Taken Comments Blood Pressure 147/83 11/23/2017 7:00 AM EDT Pulse 87 11/23/2017 7:00 AM EDT Temperature 36.7 ??C (98.1 ??F) 11/23/2017 7:00 AM ED T Respiratory Rate 18 11/23/2017 7:00 AM EDT Oxygen Saturation 97% 11/23/2017 7:00 AM EDT Inhaled Oxygen Concentration 97% 11/23/2017 7 :00 AM EDT Weight 112.9 kg (249 lb) 11/23/2017 7:00 AM EDT Height 170.2 cm (5' 7 ) 11/23/2017 7:00 AM EDT Body Mass Index 39 11/23/2017 7:00 AM EDT documented in this encounter Patient Instructions * Patient Instructions* Micha Diaz MD - 11/23/2017 1:00 PM EDT Decrease nexium to 1 tablet every other day Continue current medications Follow up in 10 days Labs every 1 weeks documented in this encounter Progress Notes * Connie Hand MA - 11/23/2017 1:00 PM EDT Review of Systems Constitutional: Positive for malaise/fatigue. HENT: Negative. Eyes: Negative. Respiratory: Negative. Cardiovascular: Negative. Gastrointestinal: Positive for abdominal pain. Genitourinary: Negative. Musculoskeletal: Positive for back pain. Skin: Negative. Neurological: Positive for tingling and weakness. Endo/Heme/Allergies: Negative. Psychiatric/Behavioral: Negative. * Micha Diaz MD - 11/23/2017 1:00 PM EDT I had the pleasure of seeing Mr. Aiden Stauffer in the clinic today for a follow up. As you know, he is a 42 y.o. 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 He received a [facility] high risk HBV ALEXANDRA+ liver. He was switched from tacrolimus to cyclosporine due to tremors. His biggest complaint is that of pain over his feet, feels like a cramping pain, improved by squeezing the feet, no effect of muscle relaxants or with gabapentin. 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 No redness noted over the feet. No liver related complaints were offered. His last magnesium was 1.6 when last checked. ROS as per Epic note. Vitals: 11/23/17 0700 BP: 147/83 Pulse: 87 Resp: 18 Temp: 98.1 ??F (36.7 ??C) SpO2: 97% Body mass index is 39 kg/m??. Constitutional: The pt is oriented to person, place, and time. Pt is obese. HENT: Head: Normocephalic and atraumatic. Mouth/Throat: Oropharynx is clear and moist. No oropharyngeal exudate. Eyes: Pupils are equal, round, and reactive to light. + scleral icterus. Neck: Normal range of motion. Cardiovascular: Normal rate, regular rhythm and normal heart sounds. Pulmonary/Chest: Effort normal and breath sounds normal. Abdominal: Soft. Bowel sounds are normal. Incision is nicely healed. Musculoskeletal: The patient exhibits no edema. No focal redness or tenderness noted over the lowerextremities. Lymphadenopathy: Pt has no cervical adenopathy. Neurological: The patient is alert and oriented to person, place, and time. Normal light touch sensations, normal muscle strength and reflexes. Skin: Skin is warm and dry. A&P Thanks Dr. Fournier, for allowing me to participate in the care of this gentleman, with a complex history of liver disease. My assessment is summarized below: Immunosuppression: will continue the current dose of cyclosporine and mycophenolate. Will follow liver enzymes, and continue the low dose prednisone at this time. HBV ALEXANDRA graft: will continue entecavir. PHS high risk organ, will need labs at the 3 month krunal. Patient was also advised to have a skin exam once a year as immunosuppression puts patients at highrisk for skin cancer. Usual skin precautions like using high potency sun block, wearing hats and long sleeve shirts, was discussed in detail with the patient. Pt was encouraged to increase his physical activities as best possible. Will DC valcyte and follow CMV titer. Pentamidine to continue for PCP prophylaxis. Bilateral foot pain: recommend neurology consultation to see if he needs a nerve conduction study to rule any neuralgia. Pt states that he will get a referral from Dr. Fournier's office in that regard. Hypomagnesemia, continue oral replacement, likely secondary to calcineurin- inhibitors, calcium is normal. Follow up in 10 days, labs every 2 weeks. * Jennifer Cruz PharmD - 11/23/2017 1:00 PM EDT Transplant Pharmacist Assessment and Recommendations: Current Outpatient Prescriptions Medication Sig ??? albuterol (PROVENTIL;VENTOLIN;PROAIR) 90 mcg/actuation inhaler Inhale 2 puffs 30-60 minutes prior to pentamidine treatment. ??? aspirin 81 MG chewable tablet Chew 1 tablet (81 mg total) by mouth daily with breakfast. ??? blood sugar diagnostic Strp Use to test blood sugar up to 4 times a day. Diagnosis for use: E 9.65. For use with One Touch Verio meters. ??? blood-glucose meter (ONETOUCH VERIO SYSTEM) [facility] Use as instructed. ??? carvedilol (COREG) 25 [...] total) by mouth every morning before breakfast. ??? gabapentin (NEURONTIN) 600 MG tablet Take [...] units in the PM. ) ??? lancets ([employer] Monitoring LANCETS) 33 gauge Misc Use 1 strip as directed 4 times daily before meals and at bedtime. ??? magnesium oxide (MAG-OX) 400 mg tablet Take 1 tablet (400 mg total) by mouth 2 times a day. Indications: hypomagnesemia (Patient taking differently: Take 400 mg by mouth 4 times a day. Indications: hypomagnesemia ) ??? melatonin 3 mg Tab Take 2 tablets (6 mg total) by mouth at bedtime. ??? mycophenolate (CELLCEPT) 250 mg capsule Take 2 capsules (500 mg total) by mouth 2 times a day. ??? NIFEdipine (PROCARDIA-XL) 60 MG (OSM) 24 hr tablet Take 1 tablet (60 mg total) by mouth daily. ??? oxyCODONE (ROXICODONE) 5 MG immediate release tablet Take 1-2 tablets (5-10 mg total) by mouth every 6 hours as needed for up to 56 days. ??? pen needle, diabetic 32 gauge x Ndle Use as directed to inject insulin 4 times daily. ??? pen needle, diabetic 32 gauge x Ndle For use with insulin pen. Use as instructed. ??? pentamidine (PENTAM) 300 mg inhalation solution Inhale 300 mg into the lungs every 28 days for 5 doses. ??? predniSONE (DELTASONE) 5 MG tablet Take 2 tablets by mouth daily. Indications: Prevention of Liver Transplant Rejection (Patient taking differently: Take 5 mg by mouth daily. Take 2 tablets by mouth daily. Indications: Prevention of Liver Transplant Rejection ) ??? valGANciclovir (VALCYTE) 450 mg tablet Take 2 tablets (900 mg total) by mouth daily. ??? traMADol (ULTRAM) 50 mg tablet Take 1 tablet (50 mg total) by mouth every 6 hours as needed forPain for up to 30 days. No current facility-administered medications for this visit. Immunosuppression: THYMO BRIDGE POD 46 Perioperative immunosuppression regimen included: steroid taper, MMF, tacrolimus and Thymoglobulin (175mg x 1 dose on 10/09/17) ?? Currently on cyclosporine 150 mg bid, mycophenolate 500mg bid, and prednisone 5 mg daily (for bloodsugars will taper every week). ?? Note WBC downtrending. 3.4 from 8.0 today. Reason for CsA use: switched on 10/23 due to significant tremors Reports tremors improved significantly with cyclosporine. Still complains of feet numbing/tingling pain. ?? Administers medications at: 9AM, 3PM and 9PM. ??Immunosuppression at 9AM and 9PM. Goal CSA level per protocol is 100-150 ng/mL. ?? Latest Cyclosporine level: Cyclosporine, Blood Date Value Ref Range Status 11/23/2017 119 100 - 400 ng/mL Final Comment: Detection limit: 30 ng/mL. Performed via chemiluminescent microparticle immunoassay on the [employer] i1000. Rejection in the past 12 months: none Prophylaxis: Estimated Creatinine Clearance: 74.7 mL/min (A) (based on SCr of 1.53 mg/dL (H)). Viral (Valcyte 900mg daily): 6??months??per protocol (D+/R-). ??Discontinue: 04/07/18 PCP (Pentamidine, switched from bactrim due to hyperkalemia): 6??months per protocol. ??Discontinue: 04/07/18. Last pentamidine dose today 11/23/17. Anti-HBcAb +/ALEXANDRA + donor: No HBIG given since HepB surface antibody 171. 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 On bolus and correction insulin. ??Recommend continue current regimen and follow up with endocrine [facility]. Blood pressure: BP at home has been 115-149/90's mmHg. On nifedipine. Recommend continue current regimen. Leg/feet cramping: On gabapentin 900 mg TID (on 600 TID prior to transplant, recently increased by PCP) and flexeril PRN. Patient reports severe pain, and inquired about switching to pregabalin. Discuss that team would prefer one physician managing this issue, as his PCP recently increased gabapentin dose. Would recommend having patient see Neurology. Adherence: Patient reports missing 0 doses in the past 7 days The following barriers to adherence have been identified: None It is my assessment that the patient demonstrates good adherence and medication understanding Recommendations: 1. Prednisone: continue current dose 5 mg daily given WBC drop. 2. Valcyte: consider holding and check CMV PCR given leukopenia * Maile Jean Baptiste RN - 11/23/2017 1:00 PM EDT After visit summary including patient instructions reviewed with patient and patient's . Medication list reviewed and medication card updated. Checked with patient to see if prescription refills and/or lab orders were needed. Updated preferred pharmacy and preferred lab information in [facility]. Care coordinated with other team members and other medical providers as needed. Patient presents with the following needs: - Txp MA to schedule next pentamidine treatment, ~12/23/17 - Orders for weekly CMV quant to be sent to outpatient lab documented in this encounter Plan of Treatment Upcoming Encounters Date Type Department Care Team (Late st Contact Info) Description 07/15/2024 9:00 AM EST Hospital Encounter [facility] Interventional Radiology [address] [place] [phone] Herve Carrillo MD [address] [facility] [address] [place] [address] documented as of this encounter Visit Diagnoses Diagnosis S/P liver transplant (CMS-HCC)- Primary Immunosuppression (CMS-HCC) documented in this encounter Additional Health Concerns Assessment Noted Time PHQ-9 Depression Total Score: 2 11/01/19 18 3:00 PM EDT documented as of this encounter Care Teams Advertisement Compositor Relationship Specialty Start Date End Date Edgar Fournier MD [address] [place] [address] [place] [address] PCP - General 08/18/17 06/23/21 Maile Valles, RN Txp Post Coordinator Transplant Hepatology 11/07/17 documented as of this encounter
--- OUTSIDE RECORDS SUMMARY | 2024-07-12 12:54 | XMS_ITS | Encounter Summary ---
Author Organization [facility] Address [facility] [place] [address] [address] Prov[address] Care [address] Marker Installer Name Role Phone Edgar Fournier MD Primary Care Provider [phone] Maile Valles RN Unavailable Unavail able Source [...] release of HIV test results or diagnoses. [id number] Health Reason for Visit * Reason Comments Labs Only Encounter Details Date Type Department Care Team (Late st Contact Info) Description 11/23/2017 9:40 AM EDT Specimen [facility] Outreach Lab [address] [place] [address] Eleanor Casey PA Transplanted liver ([facility]); Drug therapy; Low magnesium level; Pain in both feet Social History Tobacco Use Types Packs/Day Years [...] [facility] Inter[facility] Radiology [address] [place] [phone] Herve Carrillo MD [address] [facility] [place] [phone] documented as of this encounter Procedures Procedure Name Priority Date/Time Associated Diagnosis Comments HEPATIC FUNCTION PANEL Routine 11/23/2017 9:57 AM EDT Transplanted liver (CMS-HCC) Drug therapy RENAL FUNCTION PANEL W/EGFR Routine 11/23/2017 9:57 AM EDT Transplanted liver (CMS-HCC) Drug therapy CYCLOSPORINE LEVEL Routine 11/23/2017 9: 57 AM EDT Transplanted liver (CMS-HCC) Drug therapy DIFFERENTIAL Routine 11/23/2017 9:57 AM EDT Transplanted liver (CMS-HCC) Drug therapy CBC Routine 11/23/2017 9:57 AM EDT Transplanted liver (CMS-HCC) Drug therapy URIC ACID Routine 11/23/2017 9:57 AM EDT Pain in both feet MAGNESIUM Routine 11/23/2017 9:57 AM EDT Low magnesium level documented in this encounter Results * Uric acid (11/23/2017 9:57 AM EDT) Uric Acid 7.0 3.8 - 8.7 mg/dL 11/23/2017 12:10 PM EDT [facility] Plasma specimen (specimen) 11/23/2017 9:57 AM EDT 11/23/2017 11:31 AM EDT us Chetan Gallagher MD LAB BLOOD ORDERABLES Final Resu lt [facility] [address] [facility] * Magnesium (11/23/2017 9:57 AM EDT) Magnesium 1.6 1.5 - 2.5 mg/dL 11/23/2017 12:10 PM EDT [facility] Plasma specimen (specimen) 11/23/2017 9:57 AM EDT 11/23/2017 11:31 AM EDT Chetan Gallagher MD LAB BLOOD ORDERABLES Final Resu lt Performing Organization Address [facility] Co de Phone Number [facility] [address] [facility] * Cyclosporine level (11/23/2017 9:57 AM EDT) Pathologist [facility] Cyclosporine, Blood 119 100 - 400 ng/mL 11/23/2017 1:47 PM EDT [facility] Comment: Detection limit: ??30 ng/mL. ??Performed via chemiluminescent microparticle immunoassay on the [employer] i1000. Whole blood specimen (specimen) 11/23/2017 9:57 AM EDT 11/23/2017 11:31 AM EDT Narrative [facility] - 11/23/2017 1:47 PM EDT Standing labs every Monday and . Please fax results to [phone]; critical results call [phone] us Eleanor TOTH LAB BLOOD ORDERABLES Final Result Performing Organization Address City/[facility]/ZIP Co de Phone Number [facility] [address] * (ABNORMAL) Renal Function Panel w/EGFR (11/23/2017 9:57 AM EDT) Sodium 141 133 - 146 mmol/L 11/23/2017 12:10 PM EDT [facility] Potassium 4.7 3.5 - 5.3 mmol/L 11/23/2017 12:10 PM EDT [facility] Chloride 102 98 - 110 mmol/L 11/23/2017 12:10 PM EDT [facility] CO2 29 21 - 33 mmol/L 11/23/2017 12:10 PM EDT [facility] Anion Gap 10 3 - 16 mmol/L 11/23/2017 12:10 PM EDT [facility] BUN 38(H) 7 - 25 mg/dL 11/23/2017 12:10 PM EDT [facility] Creatinine 1.53(H) 0.60 - 1.30 mg/dL 11/23/2017 12:10 PM EDT [facility] Glucose 159(H) 70 - 100 mg/dL 11/23/2017 12:10 PM EDT [facility] Calcium 9.3 8.6 - 10.3 mg/dL 11/23[facility]2017 [facility] Phosphorus 4.2 2.1 - 4.7 mg/dL 11/23/2017 12:[facility] Albumin 4.0 3.5 - 5.7 g/dL 11/23/2017 12:10 PM EDT [facility] Osmolality, Calculated 304 278 - 305 mOsm/kg 11/23/2017 12:10 [facility] eGFR AA CKD-EPI 64 See note. 8 12:10 PM EDT [facility] eGFR NONAA CKD-EPI 55 See note. 11/23/2017 12:10 PM [facility] Plasma specimen (specimen) 11/23/2017 9:57 AM EDT 11/23/2017 11:31 AM EDT Narrative [facility] - 11/23/2017 12:10 PM EDT Standing labs every Monday and . Please fax results to [phone]; Critical results call [phone] As of 10/13/2015 the estimated GFR is [...] equation to estimate glomerular filtration rate. ??Jennifer Color Worker Med. 2009:150(9):[id number] Eleanor TOTH LAB BLOOD ORDERABLES Final Result [facility] [address] [facility] * Hepatic Function Panel (11/23/2017 9:57 AM EDT) Total Bilirubin 0.7 0.0 - 1.5 mg/dL 11/23/2017 12:10 PM EDT [facility] Bilirubin, Direct 0.22 0.00 - 0.40 mg/dL 11/23/2017 12:10 PM EDT [facility] AST 14 13 - 39 U/L 11/23/2017 12:10 PM EDT [facility] ALT 11 7 - 52 U/L 11/23/2017 12:10 PM EDT [facility] Alkaline Phosphatase 101 36 - 125 U/L 11/23/2017 12:10 PM EDT [facility] Total Protein 6.4 6.4 - 8.9 g/dL 11/23/2017 12:10 PM EDT [facility] Albumin 4.0 3.5 - 5.7 g/dL 11/23/2017 12:10 PM EDT [facility] Bilirubin, Indirect 0.48 0.00 - 1.10 mg/dL 11/23/2017 12:10 PM EDT [facility] Plasma specimen (specimen) 11/23/2017 9:57 AM EDT 11/23/2017 11:31 AM EDT Narrative [facility] - 11/23/2017 12:10 PM EDT Standing labs every Monday and . Please fax results to [phone]; Critical results call [phone] Eleanor TOTH LAB BLOOD ORDERABLES Final Result Performing Organization Address City/[facility]/ZIP Co de Phone Number [facility] [address] [place] [address], [facility] * (ABNORMAL) Differential (11/23/2017 9:57 AM EDT) Myelocytes Relative 3.0(H) 0.0 - 0.0 % 11/23/2017 12:39 PM EDT [facility] Metamyelocytes Relative 1.0(H) 0.0 - 0.0 % 11/23/2017 12:39 PM EDT [facility] Bands Relative 5.0 0.0 - 9.0 % 11/23/2017 12:39 PM EDT [facility] Neutrophils Relative 79.0 40.0 - 80.0 % 11/23/2017 12:39 PM EDT [facility] Lymphocytes Relative 8.0(L) 15.0 - 45.0 % 11/23/2017 12:39 PM EDT [facility] Monocytes Relative 3.0 0.0 - 12.0 % 11/23/2017 12:39 PM EDT [facility] Eosinophils Relative 0.0 0.0 - 8.0 % 11/23/2017 12:39 PM EDT [facility] Basophils Relative 1.0 0.0 - 1.0 % 11/23/2017 12:39 PM EDT [facility] Neutrophils Absolute 2,686 1,500 - 7,800 /uL 11/23/2017 12:39 PM EDT [facility] Bands Absolute 170 0 - 750 /uL 11/23/2017 12:39 PM EDT [facility] Metamyelocytes Absolute 34(H) 0 - 0 /uL 11/23/2017 12:39 PM EDT [facility] Myelocytes Absolute 102(H) 0 - 0 /uL 11/23/2017 12:39 PM EDT [facility] Lymphocytes Absolute 272(L) 850 - 3,900 /uL 11/23/2017 12:39 PM EDT [facility] Monocytes Absolute 102(L) 200 - 950 /uL 11/23/2017 12:39 PM EDT [facility] Eosinophils Absolute 0(L) 15 - 500 /uL 11/23/2017 12:39 PM EDT [facility] Basophils Absolute 34 0 - 200 /uL 11/23/2017 12:39 PM EDT [facility] Microcytosis Present 11/23/2017 12:39 PM EDT [facility] Macrocytosis Present 11/23/2017 12:39 PM EDT [facility] Polychromasia Present 11/23/2017 12:39 PM EDT [facility] Tear Drop Cells Present 8 12:39 PM EDT [facility] PLT Morphology Platelet morphology appears normal 11/23/2017 12:39 PM EDT [facility] Whole blood specimen (specimen) 11/23/2017 9:57 AM EDT 11/23/2017 11:31 AM EDT Narrative [facility] - 11/23/2017 12:39 PM EDT Standing labs every Monday and . Please fax results to [phone]; Critical results call [phone] Manual WBC differential performed per review criteria approved by the medical sociologist. us Eleanor TOTH LAB BLOOD ORDERABLES Final Result [facility] [address] [place] [address], [facility] * (ABNORMAL) CBC (11/23/2017 9:57 AM EDT) WBC 3.4(L) 3.8 - 10.8 10E3/uL 11/23/2017 11:42 AM EDT [facility] RBC 2.90(L) 4.20 - 5.80 10E6/uL 11/23/2017 11:42 AM EDT [facility] Hemoglobin 9.4(L) 13.2 - 17.1 g/dL 11/23/2017 11:42 AM EDT [facility] Hematocrit 28.0(L) 38.5 - 50.0 % 11/23/2017 11:42 AM EDT [facility] MCV 96.6 80.0 - 100.0 fL 11/23/2017 11:42 AM EDT [facility] MCH 32.6 27.0 - 33.0 pg 11/23/2017 11:42 AM EDT [facility] MCHC 33.7 32.0 - 36.0 g/dL 11/23/2017 11:42 AM EDT [facility] RDW 17.3(H) 11.0 - 15.0 % 11/23/2017 11:42 AM EDT [facility] Platelets 250 140 - 400 10E3/uL 11/23/2017 11:42 AM EDT [facility] MPV 7.5 7.5 - 11.5 fL 11/23/2017 11:42 AM EDT [facility] Whole blood specimen (specimen) 11/23/2017 9:57 AM EDT 11/23/2017 11:31 AM EDT Narrative [facility] - 11/23/2017 11:42 AM EDT Standing labs every Monday and . Please fax results to [phone]; Critical results call [phone] us Eleanor TOTH LAB BLOOD ORDERABLES Final Result [facility] [address] documented in this encounter Visit Diagnoses Diagnosis Transplanted liver (CMS-HCC) Liver replaced by transplant Drug therapy Encounter for other specified aftercare Low magnesium level Pain in both feet documented in this encounter Additional Health Concerns Assessment Noted Time PHQ-9 Depression Total Score: 2 11/01/19 18 3:00 PM EDT documented as of this encounter Care Teams Lane Marker Installer Relationship Specialty Start Date End Date Edgar Fournier [place] [address] PCP - General 08/18/17 06/23/21 Maile Valles, JANA Txp Post Coordinator Transplant Hepatology 11/07/17 documented as of this encounter
--- OUTSIDE RECORDS SUMMARY | 2024-07-12 12:54 | XMS_ITS | Encounter Summary ---
Author Organization [facility] Address [facility] [place] [address] Care Team Providers Care Professional Golf Tournament Player Name Role Phone Edgar Fournier MD Primary Care Provider [phone] Maile Valles RN Unavailable Unavail able Source [...] release of HIV test results or diagnoses. [id number] Health Reason for Visit * Reason Comments Liver Transplant Follow-up Encounter Details Date Type Department Care Team (Late st Contact Info) Description 11/07/2017 10:15 AM EDT Office Visit [facility] Liver Transplant at Outpatient [address] [address] Micha Diaz MD Safdar, Kamran, MD Encounter for therapeutic drug level monitoring (Primary Dx); Liver transplanted (CMS-HCC); Immunosuppression (CMS-HCC); Essential hypertension; Incisional pain Social History Tobacco Use Types Packs/Day Years [...] Sign Reading Time Taken Comments Blood Pressure 196/106 11/07/2017 7:00 AM EDT Pulse 84 11/07/2017 7:00 AM EDT Temperature 36.7 ??C (98.1 ??F) 11/07/2017 7:00 AM ED T Respiratory Rate 18 11/07/2017 7:00 AM EDT Oxygen Saturation 96% 11/07/2017 7:00 AM EDT Inhaled Oxygen Concentration 96% 11/07/2017 7 :00 AM EDT Weight 109.3 kg (241 lb) 11/07/2017 7:00 AM EDT Height 170.2 cm (5' 7 ) 11/07/2017 7:00 AM EDT Body Mass Index 37.75 11/07/2017 7:00 AM EDT documented in this encounter Patient Instructions * Patient Instructions* mAerica Vazquez MD - 11/07/2017 10:15 AM EDT 1. Continue cyclosporine 200 mg twice daily, will adjust based on trough (goal 100-150) 2. Continue cellcept 500 mg twice daily 3. Decrease prednisone to 10 mg daily 4. Continue entecavir 5. Continue carvedilol 25 mg twice daily 6. Discontinue Norvasc documented in this encounter Progress Notes * Connie Hand MA - 11/07/2017 10:15 AM EDT Review of Systems Constitutional: Positive for malaise/fatigue. HENT: Negative. Eyes: Negative. Respiratory: Negative. Cardiovascular: Negative. Gastrointestinal: Positive for abdominal pain, diarrhea, nausea and vomiting. Genitourinary: Negative. Musculoskeletal: Positive for back pain. Skin: Negative. Neurological: Positive for tingling and weakness. Endo/Heme/Allergies: Negative. Psychiatric/Behavioral: Negative. * Mandi Cazares, PharmD - 11/07/2017 10:15 AM EDT Transplant Pharmacist Assessment and Recommendations: Current Outpatient Prescriptions Medication Sig ??? amLODIPine (NORVASC) 10 MG tablet Take 1 tablet (10 mg total) by mouth daily. ??? aspirin 81 MG chewable tablet Chew 1 tablet (81 mg total) by mouth daily with breakfast. ??? blood sugar diagnostic Strp Use to test blood sugar up to 4 times a day. Diagnosis for use: E 9.65. For use with One Touch Verio meters. ??? blood-glucose meter (Noosh VERIO SYSTEM) [facility] Use as instructed. ??? carvedilol (COREG) 25 MG tablet Take 2 tablets (50 mg total) by mouth 2 times a day with meals. ??? cycloSPORINE modified (,NEORAL/GENGRAF,) 100 MG capsule Take 2 capsules (200 mg total) by mouth2 times a day. ??? entecavir (BARACLUDE) 1 MG tablet Take 1 tablet (1 mg total) by mouth daily. ??? ergocalciferol (ERGOCALCIFEROL) 50,000 unit capsule Take 1 capsule (50,000 Units total) by mouth once a week. ??? esomeprazole (NEXIUM) 40 MG capsule Take 1 capsule (40 mg total) by mouth every morning before breakfast. ??? furosemide (LASIX) 40 MG tablet Take 1 tablet (40 mg total) by mouth daily for 14 days. ??? gabapentin (NEURONTIN) 600 MG tablet Take 600 mg by mouth 3 times a day. ??? insulin lispro (HUMALOG KWIKPEN INSULIN) 100 unit/mL InPn Administer insulin with meals per sliding scale: glucose 150-199=2 u, 200-249=4 u, 250-299=7 u, 300-349=10 u, >349= 12 units ??? insulin NPH isoph U-100 human (HUMULIN N NPH INSULIN KWIKPEN) 100 unit/mL (3 mL) InPn Inject subcutaneously 40 units in the AM and 15 units in the PM. (Patient taking differently: [...] by mouth 2 times a day. ??? oxyCODONE (ROXICODONE) 5 MG immediate release tablet Take 1-2 tablets (5-10 mg total) by mouth every 6 hours as needed for up to 56 days. ??? pen needle, diabetic 32 gauge x 5/32 Ndle Use as directed to inject insulin 4 times daily. ??? pen needle, diabetic 32 gauge x 5/32 Ndle For use with insulin pen. Use as instructed. ??? predniSONE (DELTASONE) 5 MG tablet Take 3 tablets by mouth daily. ??? sulfamethoxazole-trimethoprim (BACTRIM,SEPTRA) 400-80 mg per tablet Take 1 tablet by mouth daily. ??? tiZANidine (ZANAFLEX) 4 MG capsule Take 0.5 mg by mouth at bedtime as needed for Muscle spasms. ??? valGANciclovir (VALCYTE) 450 mg tablet Take 2 tablets (900 mg total) by mouth daily. ??? cycloSPORINE modified (NEORAL/GENGRAF) 25 MG capsule Take 8 capsules (200 mg total) by mouth 2 times a day. No current facility-administered medications for this visit. Immunosuppression: THYMO BRIDGE Perioperative immunosuppression regimen included: steroid taper, MMF, tacrolimus and Thymoglobulin (175mg x 1 dose on 10/09/17) Currently on cyclosporine 200mg bid (switched on 10/23 due to significant tremors), mycophenolate 500mg bid, and prednisone 15mg daily (decrease today to 10 mg, for blood sugars will taper every week). Reports tremors improved significantly with cyclosporine. Administers medications at: 9AM, 3PM and 9PM. Immunosuppression at 9AM and 9PM. Goal Tacrolimus level per protocol is 10-12ng/mL. Latest Tacrolimus level: Tacrolimus by Immunoassay Date Value Ref Range Status 11/02/2017 -- Final 10/31/2017 -- Final Tacrolimus Lvl Date Value Ref Range Status 11/02/2017 138 (A) 6 - 15 ng/mL Final 10/31/2017 145 (A) 6 - 15 ng/mL Final Rejection in the past 12 months: none ?? Prophylaxis: Viral (Valcyte 900mg daily): 6 months per protocol (D+/R-). Discontinue: 04/07/18 PCP (Bactrim): 6 months per protocol. Discontinue: 04/07/18 Fungal (Nystatin): 1 month per protocol. Discontinued 11/05/17 Anti-HBcAb +/ALEXANDRA + donor: No HBIG given since HepB surface antibody 171. On entecavir 1 mg daily for life. ?? Blood Sugars: YES diabetic prior to transplant On bolus and correction insulin. Blood sugars vary greatly 145-238 in AM, 86-190 at Lunch, 109-316 at Dinner, and 285-386 at Bedtime. Currently on NPH 48 units in AM and 15 units in PM. Plan to tapersteroids weekly, next decrease happening today. Defer to endocrine for management. ?? Blood pressure: on therapy (amlodipine, carvediol) 196/106 today in clinic. Reviewed log for past 3 days at home with range 108-169/82-90 mmHg in AM and 113-170/70-80 mmHg in PM. Currently on amlodipine 10 mg daily and Coreg 50 mg BID. Consider changing amlodipine to nifedipine for more titration potential. ?? Adherence: Patient reports missing 0 doses in the past 7 days (past 3 days since home) The following barriers to adherence have been identified: none It is my assessment that the patient demonstrates good adherence and medication understanding. Wifeassists with medication management. Reviewed card and able to review all medications and dosages. ?? Other: 1) Insomnia: using melatonin has helped somewhat 2) Pain: states not using much oxycodone. Having difficulty getting comfortable to sleep. 3) Edema: on furosemide 40mg daily x 14 days. Runs out this , edema much imporved ?? Recommendations: 1) Tacrolimus: follow up on level from today 2) MMF: continue current dose of 500 mg BID 3) Prednisone: decrease to 10 mg daily today, plan to taper weekly to help with BS control 4) Lasix: edema much improved, consider discontinuation 5) Nifedipine XL: start 60 mg daily to replace amlodipine 10 mg daily * Chetan Gallagher MD - 11/07/2017 10:15 AM EDT Subjective: Aiden Stauffer is a 42 y.o. 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 He received a [facility] high risk donor, who was HBV ALEXANDRA +, HCV Ab+, ALEXANDRA negative and therefore will be on lifelong entecavir. Post-operative course was complicated by altered mental status and severe tremors thought to be related to tacrolimus toxicity, as well as hypoxia which has resolved. With regards to the hypoxia he was evaluated by pulmonology and it was felt to be multifactorial from hepatopulmonary syndrome (noted on pre-op echo), volume overload and atelectasis. He underwent VQ scan which was negative for PE and CT chest was was relatively unremarkable. Immunosuppression was standard. Liver tests are normal on prednisone 15 mg daily, cyclosporine 200 mg twice daily (due to neurologic toxicity from tacrolimus) and cellcept 500 mg twice daily. Antimicrobial prophylaxis includes bactrim (stop date 04/07/18) and valcyte (stop date 04/07/18). Cr 1.6. Co-m orbidities include hypertension for which is taking carvedilol 25 mg twice daily, Norvasc 10 mg daily and DM for which he is on insulin. Patient presents today with his . He is overall doing well. He complains of continued incisional pain. Fluid overload has resolved in his legs, he still feels that his abdomen is distended. He iseating well. Continues to have a lot of anxiety, not sleeping well. Not interested into talking to anyone about this. The following portions of the patient's history [...] Soft. Bowel sounds are normal. He exhibits distension. There is no tenderness. There is no rebound and no guarding. Minimal if any ascites, mainly obese abdomen, surgical incision c/d/i Musculoskeletal: Normal range of motion. He exhibits [...] for SAL related cirrhosis. He received a [facility] high risk donor, who was HBV ALEXANDRA +, HCV Ab+, ALEXANDRA negative and therefore will be on lifelong entecavir. Post-operative course was complicated by altered mental status and severe tremors thought to be related to tacrolimus toxicity, as well as hypoxia secondary to HPS, volume overload and atelectasis. Liver tests are normalon prednisone 15 mg daily, cyclosporine 200 mg twice daily (due to neurologic toxicity from tacrolimus) and cellcept 500 mg twice daily. Antimicrobial prophylaxis includes bactrim (stop date 04/07/18)and valcyte (stop date 04/07/18). Cr 1.6. Co-morbidities include hypertension for which is taking carvedilol 25 mg twice daily, Norvasc 10 mg daily and DM for which he is on insulin. He continues to have renal dysfunction. 1. Lower cyclosporine to 175 mg twice daily, goal trough 100-150 2. Continue cellcept 500 mg twice daily 3. Decrease prednisone to 10 mg daily, will plan to taper weekly due to elevated blood sugars 4. Continue entecavir 5. Continue carvedilol 25 mg twice daily 6. Discontinue Norvasc 7. Start nifedipine 60 mg daily 8. Discontinue lasix 40 mg daily 9. Labs weekly 10. Return in 1 week 11. Insulin adjustment per endocrinology 12. Trial tramadol for pain, wean off oxycodone America Vazquez MD Transplant Hepatology Fellow I saw and examined the patient on 11/07/17. I discussed with Dr Vazquez, hepatology fellow and agree with her findings and plan as documented in the note. Chetan Gallagher MD GI & Hepatology staff Pgr: [phone] * Maile Jean Baptiste RN - 11/07/2017 10:15 AM EDT After visit summary including patient instructions reviewed with patient and patient's . Medication list reviewed and medication card updated. Checked with patient to see if prescription refills and/or lab orders were needed. Updated preferred pharmacy and preferred lab information in patient de [facility]. Care coordinated with other team members and other medical providers as needed. Patient presents with the following needs: None verbalized at this time. documented in this encounter Plan of Treatment Upcoming Encounters Date Type Department Care Team (Late st Contact Info) Description 07/15/2024 9:00 AM [facility] Hospital Encounter [facility] Interventional Radiology [address] [place] [id number] Herve Carrillo MD [address] [facility] [address] [place] [address] documented as of this encounter Visit Diagnoses Diagnosis Encounter for therapeutic drug level monitoring- Primary Liver transplanted (CMS-HCC) Liver replaced by transplant Immunosuppression (CMS-HCC) Essential hypertension Unspecified essential hypertension Incisional pain documented in this encounter Additional Health Concerns Assessment Noted Time PHQ-9 Depression Total Score: 2 11/01/19 18 3:00 PM EDT documented as of this encounter Care Teams Professional Golf Tournament Player Relationship Specialty Start Date End Date Edgar Fournier MD [address] [place] [address] PCP - General 08/18/17 06/23/21 Maile Valles, RN Txp Post Coordinator Transplant Hepatology 11/07/17 documented as of this encounter
--- OUTSIDE RECORDS SUMMARY | 2024-07-12 12:54 | XMS_ITS | Encounter Summary ---
Author Organization Health Address [address] [place] [address] Care Team Providers Care Ruby Engineer Name Role Phone Edgar Fouriner MD Primary Care Provider [phone] Maile Valles RN Unavailable Unavail able Source [...] release of HIV test results or diagnoses. [id number] Health Encounter Details Date Type Department Care Team (Late st Contact Info) Description 12/05/2017 10:00 AM EDT Office Visit [facility] [phone] Gina Glez, NEUROLOGY DIRECTOR [address] [facility] [place] [address] Controlled type 2 diabetes mellitus with hyperglycemia, with long-term current use of insulin ([facility]) (Primary Dx); S/P liver transplant ([facility]) Social History Tobacco Use Types Packs/Day Years [...] as of this encounter Progress Notes * Gina Caballero, RAMON - 12/05/2017 10:00 AM EDT History of Present Illness: Aiden Stauffer is a 42 y.o. male who presents to the transplant clinic today for management of hyperglycemia s/p liver transplant on 10/08/17. Patient was diabetic prior to transplant on a regimen of metformin, glimepiride, and Basaglar. Only three days of data for review. Fasting numbers highly variable mid 100s and 200s. Up to 300-400 at dinner. Unsure of diet restrictions despite being diabetic prior to sx. Using >20 units correction. 11/14/17-in ER last night with low magnesium. Still not feeling well-BG noted to be 53 and corrected with juice and now eating PB sandwich. Was NPO for testing this am, but took the entire 50 unit doseof insulin. BGs as follows: Fasting 82- 186, lunch 103-240, dinner 285-384, and bed 143-310. 12/05/17- BGs 78-154 with only occasional excursion into the 200s. No longer on prednisone, but still on significant amount of insulin. Slight decline in recent GFR-patient reports he has been ill. Current Diabetes Medications: NPH 48 units qam and 15 units qpm Humalog AC meals with the following correction: 150-200= 2 units 201-250=4 units 251-300=7 units 301-350=10 units >350=12 units Home Monitoring: See details above. ROS reviewed in detail with patient. Patient encouraged to discuss non-Endocrine issues with PCP. The following portions of the patient's history were reviewed and updated as appropriate: allergies, current medications, past family history, past medical history, past social history, past surgicalhistory and problem list. Physical Exam: Vitals - 1 value per visit 12/05/2017 SYSTOLIC 153 DIASTOLIC 85 PULSE 91 TEMPERATURE 98.3 SPO2 97 RESPIRATIONS 18 Weight (lb) HEIGHT 5' 7 GENERAL: No acute distress. Morbidly obese. MENTAL STATUS: Pleasant. A/O x3. SKIN: Pale, warm, & dry. HEENT: Atraumatic. Symmetrical. LUNGS: Respirations even and unlabored. HEART: + edema BLE. ABDOMEN: Obese. NEUROLOGIC: No apparent focal motor or sensory deficit. No tremor. MUSCULOSKELETAL: Sitting in recliner without assistance. Assessment & Plan: Diabetes Mellitus-Type 2 with hyperglycemia -no changes. -margarito ordered to facilitate frequency of testing. -Reinforced the rule of 15 for treating hypoglycemia and to notify me for any lows (<70) or sustained highs. Follow-up as previously scheduled. MEDICAL DECISION MAKING: Review of data completed: lab results, imaging, specimen(s), permanent chart problem/surgery list, permanent chart chronic med/allergy list, permanent chart social/family history and other diagnosticand treatment history. Please see my assessment and plan for details. TERRY Aguilar, NEUROLOGY DIRECTOR, SET UP WORKER-BC documented in this encounter Plan of Treatment Upcoming Encounters Date Type Department Care Team (Late st Contact Info) Description 07/15/2024 9:00 AM EST Hospital Encounter [facility] Interventional Radiology [address] [place] [phone] Herve Carrillo MD [address] [facility] [address] [place] [phone] documented as of this encounter Visit Diagnoses Diagnosis Controlled type 2 diabetes mellitus with hyperglycemia, with long-term current use of insulin (CMS-HCC)- Primary S/P liver transplant (CMS-HCC) documented in this encounter Additional Health Concerns Assessment Noted Time PHQ-9 Depression Total Score: 0 12/06/19 18 3:00 PM EDT documented as of this encounter Care Teams Ruby Engineer Relationship Specialty Start Date End Date [place] [address] PCP - General 08/18/17 06/23/21 Maile Valles, RN Txp Post Coordinator Transplant Hepatology 11/07/17 documented as of this encounter
--- OUTSIDE RECORDS SUMMARY | 2024-07-12 12:54 | XMS_ITS | Encounter Summary ---
Author Organization Health Address [address] [place] [address] Care Team Providers Care Machine Setter Sheet Metal Name Role Phone Edgar Fournier MD Primary Care Provider [phone] Maile Valles RN Unavailable Unavail able Source [...] release of HIV test results or diagnoses. [id number] Health Reason for Visit * Reason Onset Date Comments Hyperglycemia 11/09/2017 Encounter Details Date Type Department Care Team (Late st Contact Info) Description 11/09/2017 Telephone [facility] Liver Transplant at Outpatient [address] [address] Lynnette Muhammad MA Hyperglycemia Social History Tobacco Use Types Packs/Day Years [...] Notes * Maile Jean Baptiste RN - 11/10/2017 9:23 AM EDTAddended by: MAILE JEAN BAPTISTE on: 11/10/2017 09:23 AM Modules accepted: Orders documented in this encounter Miscellaneous Notes * Telephone Encounter - Maile Jean Baptiste RN - 11/10/2017 9:[address] Vazquez: Have him increase morning to 50 units and nighttime to 17 units. He can followup withKristy on Monday. Reviewed results and recommendations with the patient who verbalized understanding and is comfortable with the plan of care. * Telephone Encounter - Maile Jean Baptiste RN - 11/09/2017 3:43 PM EDT Patient concerned about blood sugar levels. 11/07 Breakfast - 211 Lunch - 110 Dinner - 286 Bedtime - 351 11/08 Breakfast - 186 Lunch - 240 Dinner - 384 Bedtime - 310 11/09 Breakfast - 186 Lunch - 210 Patient taking 48 units NPH in AM and 15 units NPH in the PM. Patient just doing sliding scale of lispro at meals. * Telephone Encounter - Lynnette Muhammad MA - 11/09/2017 2:51 PM EDT Patient called and had some questions for you, he didn't state what about but he said just some questions, nothing urgant just want to talk to Maile. His cell number is [phone] documented in this encounter Plan of Treatment Upcoming Encounters Date Type Department Care Team (Late st Contact Info) Description 07/15/2024 9:00 AM EST Hospital Encounter [facility] Interventional Radiology [address] [place] [phone] Herve Carrillo MD 12[address] [facility] [address] [place] [address] documented as of this encounter Visit Diagnoses Diagnosis S/P liver transplant (CMS-HCC)- Primary Hyperglycemia Other abnormal glucose documented in this encounter Additional Health Concerns Assessment Noted Time PHQ-9 Depression Total Score: 2 11/01/19 18 3:00 PM EDT documented as of this encounter Care Teams Machine Setter Sheet Metal Relationship Specialty Start Date End Date Edgar Fournier MD [address] [place] [address] PCP - General 08/18/17 06/23/21 Maile Valles, RN Txp Post Coordinator Transplant Hepatology 11/07/17 documented as of this encounter
--- OUTSIDE RECORDS SUMMARY | 2024-07-12 12:54 | XMS_ITS | Encounter Summary ---
Author Organization Health Address [facility] [place] [address] Care Team Providers Care Circular Saw Edge Fuser Name Role Phone Edgar Fournier MD Primary Care Provider [phone] Maile Valles RN Unavailable Unavail able Source [...] release of HIV test results or diagnoses. [id number] Health Encounter Details Date Type Department Care Team (Late st Contact Info) Description 12/05/2017 Social Work [facility] SOCIAL WORK [address] [place] [address] Chiquita Rosado MSW [address] [place] [address] Social History Tobacco Use Types Packs/Day Years [...] encounter Progress Notes * RADHA Kline - 12/05/2017 3:43 PM EDT Social Work Note- Outpatient Liver Transplant Patient is status post liver transplant on 10/08/17. Met with patient, patient's , and patient's mother during post liver transplant clinic. PHQ-9 Scores: PHQ Total Score 08/21/2017 10/31/2017 12/05/2017 PHQ-9 Total Score 0 2 0 GAD7 Scores: [id number] Score 10/31/2017 12/05/2017 Total Score 2 1 Scores are not concerning for depression or anxiety. Patient reports that he is now ready to return to work. 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 Explained to patient that he needs to call this worker with insurance information on new employer to ensure [facility] accepts insurance plan. Patient's to call. Provided patient with gas card, $100. Patient has $400 remaining. No other needs identified. SW to follow. RADHA Kline, DEPLOYMENT SPECIALIST [phone] documented in this encounter Plan of Treatment Upcoming Encounters Date Type Department Care Team (Late st Contact Info) Description 07/15/2024 9:00 AM EST Hospital Encounter [facility] Interventional Radiology [address] [place] [phone] Herve Carrillo MD 3[address] [facility] [address] [place] [phone] documented as of this encounter Visit Diagnoses Not on filedocumented in this encounter Additional Health Concerns Assessment Noted Time PHQ-9 Depression Total Score: 0 12/06/19 3:00 PM EDT documented as of this encounter Care Teams Circular Saw Edge Fuser Relationship Specialty Start Date End Date Edgar [place] [address] PCP - General 08/18/17 06/23/21 Maile Valles, RN Txp Post Coordinator Transplant Hepatology 11/07/17 documented as of this encounter
--- OUTSIDE RECORDS SUMMARY | 2024-07-12 12:54 | XMS_ITS | Encounter Summary ---
Author Organization Health Address [facility] [place] [address] Care Team Providers Care Outreach Consultant Name Role Phone Edgar Fournier MD Primary Care Provider [phone] Maile Valles RN Unavailable Unavail able Source [...] release of HIV test results or diagnoses. [id number] Health Encounter Details Date Type Department Care Team (Late st Contact Info) Description 11/07/2017 Social Work [facility] SOCIAL WORK [address] [place] [address] Chiquita Rosado MSW [address] [place] [address] Social History Tobacco Use Types Packs/Day Years [...] encounter Progress Notes * RADHA Kline - 11/07/2017 9:35 AM EDT Social Work Note- Outpatient Liver Transplant Patient is status post liver transplant on 10/08/17. Met with patient and patient's during post liver transplant clinic. Patient shares that he will have Medicaid for the next year. Last week he was anxious to return to work, as soon as possible, however, this week reporting that he is okay with taking more time off work. He plans to discuss with his MD when he is appropriate to return to work. When patient is ready to go back to work, encouraged patient to notify this worker to help ensure he will have adequate health insurance. Patient has been approved for the [place] [employer] and was been awarded $600 in gas cards. Cards have been mailed to this worker and will be given to patient as needed. Gas cards are to be used only for transportation to [facility]. $100 in gas cards given to patient, this date. SW to follow. RADHA Kline, FLIGHT LINE SERVICE ATTENDANT [phone] documented in this encounter Plan of Treatment Upcoming Encounters Date Type Department Care Team (Late st Contact Info) Description 07/15/2024 9:00 AM [facility] Hospital Encounter [facility] Interventional Radiology [address] [place] [phone] Herve Carrillo MD 3130 [facility] 3[address] [place] [phone] documented as of this encounter Visit Diagnoses Not on filedocumented in this encounter Additional Health Concerns Assessment Noted Time PHQ-9 Depression Total Score: 2 11/01/19 18 3:00 PM EDT documented as of this encounter Care Teams Outreach Consultant Relationship Specialty Start Date End Date [place] [address] PCP - General 08/18/17 06/23/21 Maile Valles, RN Txp Post Coordinator Transplant Hepatology 11/07/17 documented as of this encounter
--- OUTSIDE RECORDS SUMMARY | 2024-07-12 12:54 | XMS_ITS | Encounter Summary ---
Author Organization Health Address [facility] [place] [address] Care Team Providers Care Support Specialist Name Role Phone Edgar Fournier MD Primary Care Provider [phone] Maile Valles RN Unavailable Unavail able Source [...] release of HIV test results or diagnoses. [id number] Health Encounter Details Date Type Department Care Team (Late st Contact Info) Description 11/07/2017 Chart Note [facility] Liver Transplant at Outpatient [address] [address] Latrice Brice MA Social History Tobacco Use [...] [facility] Interventional Radiology [address] [place] [address] Herve Carrillo MD [address] [place] [address] documented as of this encounter Procedures Procedure Name Priority Date/Time Associated Diagnosis Comments CYCLOSPORINE LEVEL Routine 11/02/2017 10 :49 AM EDT documented in this encounter Results * Cyclosporine level (11/02/2017 10:49 AM EDT) Cyclosporine, Blood 138 Whole blood specimen (specimen) us Historical Provider LAB BLOOD ORDERABLES Yoselin l Result documented in this encounter Visit Diagnoses Not on filedocumented in this encounter Additional Health Concerns Assessment Noted Time PHQ-9 Depression Total Score: 2 11/01/19 18 3:00 PM EDT documented as of this encounter Care Teams Support Specialist Relationship Specialty Start Date End Date Edgar Fournier MD [address] [place] [address] [place] [address] PCP - General 08/18/17 06/23/21 Maile Valles, RN Txp Post Coordinator Transplant Hepatology 11/07/17 documented as of this encounter
--- OUTSIDE RECORDS SUMMARY | 2024-07-12 12:54 | XMS_ITS | Encounter Summary ---
Author Organization Health Address [address] [place] [address] Care Team Providers Care Front Desk Receptionist Name Role Phone Edgar Fournier MD Primary Care Provider [phone] Maile Valles RN Unavailable Unavail able Source [...] release of HIV test results or diagnoses. [id number] Health Reason for Visit * Reason Onset Date Comments Results 11/07/2017 Encounter Details Date Type Department Care Team (Late st Contact Info) Description 11/07/2017 Telephone [facility] Liver Transplant at Outpatient [address] [address] Maile Valles, JANA Results Social [...] Encounter - Maile Jean Baptiste RN - 11/07/2017 2:01 PM EDT Reviewed results and recommendations with the patient who verbalized understanding and is comfortable with the plan of care. * Telephone Encounter - America Vazquez MD - 11/07/2017 1:58 PM EDT Will decrease cyclosporine to 175 mg twice daily. * Telephone Encounter - Maile Jean Baptiste RN - 11/07/2017 1:46 PM EDT Lab results from 11/07/17 reviewed this morning in clinic, see office notes. CSA level resulted after clinic. CSA 195, goal 100-150. Will route to Txp Provider for review and recommendations. documented in this encounter Plan of Treatment Upcoming Encounters Date Type Department Care Team (Late st Contact Info) Description 07/15/2024 9:00 AM EST Hospital Encounter [facility] Interventional Radiology [address] [place] [phone] Herve Carrillo MD 3130 [facility] [address] [place] [phone] documented as of this encounter Visit Diagnoses Diagnosis Essential hypertension Unspecified essential hypertension Encounter for therapeutic drug level monitoring documented in this encounter Additional Health Concerns Assessment Noted Time PHQ-9 Depression Total Score: 2 11/01/19 3:00 PM EDT documented as of this encounter Care Teams Front Desk Receptionist Relationship Specialty Start Date End Date Edgar Fournier MD [place] [address] PCP - General 08/18/17 06/23/21 Maile Valles, RN Txp Post Coordinator Transplant Hepatology 11/07/17 documented as of this encounter
--- OUTSIDE RECORDS SUMMARY | 2024-07-12 12:54 | XMS_ITS | Encounter Summary ---
Author Organization Health Address [facility]0 [place] [address] Care Team Providers Care Phlebotomy Manager Name Role Phone Edgar Fournier MD Primary Care Provider [phone] Maile Valles RN Unavailable Unavail able Source [...] release of HIV test results or diagnoses. [id number] Health Encounter Details Date Type Department Care Team (Late st Contact Info) Description 11/13/2017 Telephone [facility] Liver Transplant at Outpatient [address] [phone] Maile Valles, RN Social History Tobacco Use [...] Encounter [facility] Interventional Radiology [address] [place] [address] Herve Carrillo MD [address] [place] [phone] documented as of this encounter Visit Diagnoses Not on filedocumented in this encounter Additional Health Concerns Assessment Noted Time PHQ-9 Depression Total Score: 2 11/01/19 18 3:00 PM EDT documented as of this encounter Care Teams Phlebotomy Manager Relationship Specialty Start Date End Date Edgar Fournier MD [address] [place] [address] [place] [phone] PCP - General 08/18/17 06/23/21 Maile Valles, JANA Txp Post Coordinator Transplant Hepatology 11/07/17 documented as of this encounter
--- OUTSIDE RECORDS SUMMARY | 2024-07-12 12:54 | XMS_ITS | Encounter Summary ---
Author Organization Health Address [facility] [place] [address] Care Team Providers Care Visitor Information Assistant Name Role Phone Edgar Fournier MD Primary Care Provider [phone] Maile Valles RN Unavailable Unavail able Source [...] release of HIV test results or diagnoses. [id number] Health Encounter Details Date Type Department Care Team (Late st Contact Info) Description 11/20/2017 Telephone [facility] Liver Transplant at Outpatient [address] [phone] Chetan Gallagher MD Social History Tobacco Use Types Packs/Day [...] Telephone Encounter - Dillon Whitman RN - 11/20/2017 8:14 AM EDT ER Senait PEREZ, called to inform the office that patient came in with searing bilateral lower leg/foot pain. Recently had his gabapentin increased to 900 mg tid by his pcp. Mag 400 mg increased to 4x/day recently. Vitals and labs stable. Per MD, looks great and otherwise has no other problems. Hada similar visit on 11/13. Will route to coordinator for follow-up. documented in this encounter Plan of Treatment Upcoming Encounters Date Type Department Care Team (Late st Contact Info) Description 07/15/2024 9:00 AM EST Hospital Encounter [facility] Interventional Radiology [address] [place] [phone] Herve Carrillo MD 3130 [facility] [address] Surgery [place] [phone] documented as of this encounter Visit Diagnoses Not on filedocumented in this encounter Additional Health Concerns Assessment Noted Time PHQ-9 Depression Total Score: 2 11/01/19 18 3:00 PM EDT documented as of this encounter Care Teams Visitor Information Assistant Relationship Specialty Start Date End Date Edgar Fournier MD [address] [place] [address] [place] [address] PCP - General 08/18/17 06/23/21 Maile Valles, JANA Txp Post Coordinator Transplant Hepatology 11/07/17 documented as of this encounter
--- OUTSIDE RECORDS SUMMARY | 2024-07-12 12:54 | XMS_ITS | Encounter Summary ---
Author Organization Health Address [address] [place] [address] Care Team Providers Care Technologist Development Name Role Phone Edgar Fournier MD Primary Care Provider [phone] Maile Valles RN Unavailable Unavail able Source [...] release of HIV test results or diagnoses. [id number] Health Encounter Details Date Type Department Care Team (Late st Contact Info) Description 11/14/2017 8:00 AM EDT Office Visit [facility] Liver Transplant at Outpatient [address] [phone] Gina Glez, STUNTMAN [address] [facility] [place] [address] Controlled type 2 diabetes mellitus with hyperglycemia, with long-term current use of insulin ([facility]) (Primary Dx); S/P liver transplant ([facility]) Social History Tobacco Use Types [...] Progress Notes * Gina Caballero, RAMON - 11/14/2017 8:00 AM EDT History of Present Illness: Aiden [...] lunch 103-240, dinner 285-384, and bed 143-310. Current Diabetes Medications: NPH 50 units qam and 17 units qpm Humalog AC meals with the [...] Exam: Vitals - 1 value per visit 11/14/2017 SYSTOLIC 146 DIASTOLIC 88 PULSE 86 TEMPERATURE 98.1 SPO2 100 RESPIRATIONS 18 Weight (lb) 241 HEIGHT 5' 7 BODY MASS INDEX 37.75 GENERAL: No acute distress. Morbidly obese. MENTAL STATUS: Pleasant. A/O x3. SKIN: Pale, warm, & dry. HEENT: Atraumatic. Symmetrical. LUNGS: Respirations even and unlabored. HEART: + edema BLE. ABDOMEN: Obese. NEUROLOGIC: No apparent focal motor or sensory deficit. No tremor. MUSCULOSKELETAL: Sitting in chair without assistance. Assessment & Plan: Diabetes Mellitus-Type 2 with hyperglycemia -NPH increased last week. -discussed tx of lows and holding/halving NPH if fasting and relying on correction. -no changes to regimen today. -Reinforced the rule of 15 for treating hypoglycemia and to notify me for any lows (<70) or sustained highs. Follow-up as previously scheduled. MEDICAL DECISION MAKING: Review of data completed: lab results, imaging, specimen(s), permanent chart problem/surgery list, permanent chart chronic med/allergy list, permanent chart social/family history and other diagnosticand treatment history. Please see my assessment and plan for details. Gina Caballero, MSN, STUNTMAN, PARAFFIN MACHINE OPERATOR-BC documented in this encounter Plan of Treatment Upcoming Encounters Date Type Department Care Team (Late st Contact Info) Description 07/15/2024 9:00 AM [facility] Hospital Encounter [facility] Interventional Radiology [address] [place] [phone] Herve Carrillo MD 3130 [facility] 3[address] [place] [phone] documented as of this encounter Visit Diagnoses Diagnosis Controlled type 2 diabetes mellitus with hyperglycemia, with long-term current use of insulin (CMS-HCC)- Primary S/P liver transplant (CMS-HCC) documented in this encounter Additional Health Concerns Assessment Noted Time PHQ-9 Depression Total Score: 2 11/01/19 18 3:00 PM EDT documented as of this encounter Care Teams Technologist Development Relationship Specialty Start Date End Date Edgar Fournier MD [address] [place] [address] [place] [address] PCP - General 08/18/17 06/23/21 Maile Valles, RN Txp Post Coordinator Transplant Hepatology 11/07/17 documented as of this encounter
--- OUTSIDE RECORDS SUMMARY | 2024-07-12 12:54 | XMS_ITS | Encounter Summary ---
Author Organization Health Address [address] [place] [address] Care Team Providers Care Sports Anchor Name Role Phone Edgar Fournier MD Primary Care Provider [phone] Maile Valles RN Unavailable Unavail able Source [...] release of HIV test results or diagnoses. [id number] Health Reason for Visit * Reason Onset Date Comments Results 11/28/2017 Encounter Details Date Type Department Care Team (Late st Contact Info) Description 11/28/2017 Telephone [facility] Liver Transplant at Outpatient [address] [address] Maile Valles, JANA Results Social [...] Encounter - Maile Jean Baptiste RN - 11/30/2017 1:59 PM EDT CSA 124, goal 100-150. CMV not detected. Will continue to monitor as per previously determined lab intervals. * Telephone Encounter - Maile Jean Baptiste RN - 11/28/2017 8:16 AM EDT Lab results from 11/27/17 reviewed. Cr elevated to 1.7. LFTs stable. CSA level pending. documented in this encounter Plan of Treatment Upcoming Encounters Date Type Department Care Team (Late st Contact Info) Description 07/15/2024 9:00 AM [facility] Hospital Encounter [facility] Interventional Radiology [address] [place] [phone] Herve Carrillo MD [address] [facility] [address] [facility] [place] [phone] documented as of this encounter Visit Diagnoses Not on filedocumented in this encounter Additional Health Concerns Assessment Noted Time PHQ-9 Depression Total Score: 2 11/01/19 18 3:00 PM EDT documented as of this encounter Care Teams Sports Anchor Relationship Specialty Start Date End Date [place] [address] PCP - General 08/18/17 06/23/21 Maile Valles, AJNA Txp Post Coordinator Transplant Hepatology 11/07/17 documented as of this encounter
--- OUTSIDE RECORDS SUMMARY | 2024-07-12 12:54 | XMS_ITS | Encounter Summary ---
Author Organization [facility] Address [address] [place] [address] Care Team Providers Care Rnp Name Role Phone Edgar Fournier MD Primary Care Provider [phone] Maile Valles RN Unavailable Unavail able Source [...] release of HIV test results or diagnoses. [id number] Health Reason for Visit * Reason Onset Date Comments Foot Pain 11/28/2017 Encounter Details Date Type Department Care Team (Late st Contact Info) Description 11/28/2017 Telephone [facility] Liver Transplant at Outpatient [address] [address] Maile Valles, JANA Foot Pain Social History Tobacco Use Types Packs/Day Years [...] Notes * Maile Jean Baptiste RN - 11/29/2017 10:06 AM EDTAddended by: MAILE JEAN BAPTISTE on: 11/29/2017 10:06 AM Modules accepted: Orders documented in this encounter Miscellaneous Notes * Telephone Encounter - Maile Jean Baptiste RN - 11/29/2017 10:[address] Gallagher: Stop the prednisone Reviewed recommendations with the patient who verbalized understanding and is comfortable with the plan of care. * Telephone Encounter - Maile Jean Baptiste RN - 11/28/2017 2:34 PM EDT Patient called continuing to c/o foot pain. - Went to neurologist. Neurologist thinks pain is due to low magnesium related to cyclosporine. PCPprescribed Slo-Mag 2 tablets BID. - Over the weekend, patient's foot cramped and he fell. Scraped up hands and knees. Was evaluated at local ED. No issues. - Patient is wondering if he can wean off of prednisone quicker. Neurologist said she would prefer to do further testing after patient off prednisone. Will forward to Wyp Provider for review. documented in this encounter Plan of Treatment Upcoming Encounters Date Type Department Care Team (Late st Contact Info) Description 07/15/2024 9:00 AM EST Hospital Encounter [facility] Interventional Radiology [address] [place] [phone] Herve Carrillo MD [address] [place] [phone] documented as of this encounter Visit Diagnoses Not on filedocumented in this encounter Additional Health Concerns Assessment Noted Time PHQ-9 Depression Total Score: 2 11/01/19 18 3:00 PM EDT documented as of this encounter Care Teams Rnp Relationship Specialty Start Date End Date Edgar Fournier MD [address] [place] [address] PCP - General 08/18/17 06/23/21 Maile Valles, RN Txp Post Coordinator Transplant Hepatology 11/07/17 documented as of this encounter
--- OUTSIDE RECORDS SUMMARY | 2024-07-12 12:54 | XMS_ITS | Encounter Summary ---
Author Organization [facility] Address [facility] [place] [address] Care Team Providers Care Assistant Commissioner Name Role Phone Edgar Fournier MD Primary Care Provider [phone] Maile Valles RN Unavailable Unavail able Source [...] release of HIV test results or diagnoses. [id number] Health Reason for Visit * Reason Comments Labs Only Encounter Details Date Type Department Care Team (Late st Contact Info) Description 11/14/2017 9:50 AM EDT Specimen [facility] Outreach Lab [address] [place] [phone] Eleanor Casey PA Transplanted liver (CMS-HCC); Drug therapy; S/P liver transplant (CMS-HCC); Cramping of feet Social History Tobacco Use Types Packs/Day [...] 07/15/2024 9:00 AM EST Hospital Encounter [facility] Interventional Radiology [address] [place] [address] Herve Carrillo MD [address] [facility] [address] [place] [address] documented as of this encounter Procedures Procedure Name Priority Date/Time Associated Diagnosis Comments HEPATIC FUNCTION PANEL Routine 11/14/2017 9:50 AM EDT Transplanted liver (CMS-HCC) Drug therapy RENAL FUNCTION PANEL W/EGFR Routine 11/14/2017 9:50 AM EDT Transplanted liver (CMS-HCC) Drug therapy CYCLOSPORINE LEVEL Routine 11/14/2017 9: 50 AM EDT Transplanted liver (CMS-HCC) Drug therapy DIFFERENTIAL Routine 11/14/2017 9:50 AM EDT Transplanted liver (CMS-HCC) Drug therapy CBC Routine 11/14/2017 9:50 AM EDT Transplanted liver (CMS-HCC) Drug therapy MAGNESIUM Routine 11/14/2017 9:50 AM EDT S/P liver transplant (CMS-HCC) Cramping of feet documented in this encounter Results * Magnesium (11/14/2017 9:50 AM EDT) Magnesium 1.8 1.5 - 2.5 mg/dL 11/14/2017 10:39 AM EDT [facility] Plasma specimen (specimen) 11/14/2017 9:50 AM EDT 11/14/2017 10:08 AM EDT America Vazquez MD LAB BLOOD ORDERABLES Fi nal Result [facility] [address] * Cyclosporine level (11/14/2017 9:50 AM EDT) Pathologist [facility] Cyclosporine, Blood 181 100 - 400 ng/mL 11/14/2017 12:57 PM EDT [facility] Comment: Detection limit: ??30 ng/mL. ??Performed via chemiluminescent microparticle immunoassay on the [employer] Lamination Operator i1000. Whole blood specimen (specimen) 11/14/2017 9:50 AM EDT 11/14/2017 10:14 AM EDT Narrative [facility] - 11/14/2017 12:57 PM EDT Standing labs every Monday and . Please fax results to [phone]; critical results call [phone] Eleanor TOTH LAB BLOOD ORDERABLES Final Result Performing Organization Address [facility]/ZIP Co de Phone Number [facility] [address] [facility] * (ABNORMAL) Renal Function Panel w/EGFR (11/14/2017 9:50 AM EDT) [facility] Sodium 144 133 - 146 mmol/L 11/14/2017 10:39 AM EDT [facility] Potassium 4.5 3.5 - 5.3 mmol/L 11/14/2017 10:39 AM EDT [facility] Chloride 104 98 - 110 mmol/L 11/14/2017 10:39 AM EDT [facility] CO2 30 21 - 33 mmol/L 11/14/2017 10:39 AM EDT [facility] Anion Gap 10 3 - 16 mmol/L 11/14/2017 10:39 AM EDT [facility] BUN 44(H) 7 - 25 mg/dL 11/14/2017 10:39 AM EDT [facility] Creatinine 1.65(H) 0.60 - 1.30 mg/dL 11/14/2017 10:39 AM EDT [facility] Glucose 80 70 - 100 mg/dL 11/14/2017 10:39 AM EDT [facility] Calcium 9.6 8.6 - 10.3 mg/dL 11/14/2017 10:39 AM EDT [facility] Phosphorus 5.3(H) 2.1 - 4.7 mg/dL 11/14/2017 10:39 AM EDT [facility] Albumin 3.9 3.5 - 5.7 g/dL 11/14/2017 10:39 AM EDT [facility] Osmolality, Calculated 308(H) 278 - 305 mOsm/kg 11/14/2017 10:39 AM EDT [facility] eGFR AA CKD-EPI 58 See note. 8 10:39 AM EDT [facility] eGFR NONAA CKD-EPI 50 See note. 11/14/2017 10:39 AM EDT [facility] Plasma specimen (specimen) 11/14/2017 9:50 AM EDT 11/14/2017 10:08 AM EDT Narrative [facility] - 11/14/2017 10:39 AM EDT Standing labs every Monday and . Please fax results to [phone]; Critical results call [phone] As of 10/13/2015 the estimated GFR is [...] equation to estimate glomerular filtration rate. ??Jennifer 1St Grade Teacher Med. 2009:150(9):604-12 us Eleanor TOTH LAB BLOOD ORDERABLES Final Result [facility] [address] [facility] [place] [address], [facility] * Hepatic Function Panel (11/14/2017 9:50 AM EDT) Total Bilirubin 0.8 0.0 - 1.5 mg/dL 11/14/2017 10:39 AM EDT [facility] Bilirubin, Direct 0.27 0.00 - 0.40 mg/dL 11/14/2017 10:39 AM EDT [facility] AST 15 13 - 39 U/L 11/14/2017 10:39 AM EDT [facility] ALT 13 7 - 52 U/L 11/14/2017 10:39 AM EDT [facility] Alkaline Phosphatase 98 36 - 125 U/L 11/14/2017 10:39 AM EDT [facility] Total Protein 7.1 6.4 - 8.9 g/dL 11/14/2017 10:39 AM EDT [facility] Albumin 3.9 3.5 - 5.7 g/dL 11/14/2017 10:39 AM EDT [facility] Bilirubin, Indirect 0.53 0.00 - 1.10 mg/dL 11/14/2017 10:39 AM EDT [facility] Plasma specimen (specimen) 11/14/2017 9:50 AM EDT 11/14/2017 10:08 AM EDT Narrative [facility] - 11/14/2017 10:39 AM EDT Standing labs every Monday and . Please fax results to [phone]; Critical results call [phone] us Eleanor TOTH LAB BLOOD ORDERABLES Final Result [facility] [address] * (ABNORMAL) Differential (11/14/2017 9:50 AM EDT) Bands Relative 6.0 0.0 - 9.0 % 11/14/2017 11:21 AM EDT [facility] Neutrophils Relative 80.0 40.0 - 80.0 % 11/14/2017 11:21 AM EDT [facility] Lymphocytes Relative 8.0(L) 15.0 - 45.0 % 11/14/2017 11:21 AM EDT [facility] Atypical Lymphocytes Relative 1.0 0.0 - 9.0 % 11/14/2017 11:21 AM EDT [facility] Comment:Atypical lymphocyte( s)= reactive, benign, viral lymphocyte(s) Monocytes Relative 5.0 0.0 - 12.0 % 11/14/2017 11:21 AM EDT [facility] Eosinophils Relative 0.0 0.0 - 8.0 % 11/14/2017 11:21 AM EDT [facility] Basophils Relative 0.0 0.0 - 1.0 % 11/14/2017 11:21 AM EDT [facility] Neutrophils Absolute 6,400 1,500 - 7,800 /uL 11/14/2017 11:21 AM EDT [facility] Bands Absolute 480 0 - 750 /uL 11/14/2017 11:21 AM EDT [facility] Lymphocytes Absolute 720(L) 850 - 3,900 /uL 11/14/2017 11:21 AM EDT [facility] Monocytes Absolute 400 200 - 950 /uL 11/14/2017 11:21 AM EDT [facility] Eosinophils Absolute 0(L) 15 - 500 /uL 11/14/2017 11:21 AM EDT [facility] Basophils Absolute 0 0 - 200 /uL 11/14/2017 11:21 AM EDT [facility] Ovalocytes Present 11/14/2017 11:21 AM EDT [facility] PLT Morphology Platelet morphology appears normal 11/14/2017 11:21 AM EDT [facility] Whole blood specimen (specimen) 11/14/2017 9:50 AM EDT 11/14/2017 10:14 AM EDT Narrative [facility] - 11/14/2017 11:21 AM EDT Standing labs every Monday and . Please fax results to [phone]; Critical results call [phone] Manual WBC differential performed per review criteria approved by the biomedical equipment support specialist. us Eleanor TOTH LAB BLOOD ORDERABLES Final Result [facility] [address] [place] [address], [facility] * (ABNORMAL) CBC (11/14/2017 9:50 AM EDT) WBC 8.0 3.8 - 10.8 10E3/uL 11/14/2017 10:57 AM EDT [facility] RBC 3.17(L) 4.20 - 5.80 10E6/uL 11/14/2017 10:57 AM EDT [facility] Hemoglobin 10.2(L) 13.2 - 17.1 g/dL 11/14/2017 10:57 AM EDT [facility] Hematocrit 31.2(L) 38.5 - 50.0 % 11/14/2017 10:57 AM EDT [facility] MCV 98.4 80.0 - 100.0 fL 11/14/2017 10:57 AM EDT [facility] MCH 32.2 27.0 - 33.0 pg 11/14/2017 10:57 AM EDT [facility] MCHC 32.7 32.0 - 36.0 g/dL 11/14/2017 10:57 AM EDT [facility] RDW 17.9(H) 11.0 - 15.0 % 11/14/2017 10:57 AM EDT [facility] Platelets 368 140 - 400 10E3/uL 11/14/2017 10:57 AM EDT [facility] MPV 7.5 7.5 - 11.5 fL 11/14/2017 10:57 AM EDT [facility] Whole blood specimen (specimen) 11/14/2017 9:50 AM EDT 11/14/2017 10:14 AM EDT Narrative [facility] - 11/14/2017 10:57 AM EDT Standing labs every Monday and . Please fax results to [phone]; Critical results call [phone] us Eleanor TOTH LAB BLOOD ORDERABLES Final Result [facility] [address] documented in this encounter Visit Diagnoses Diagnosis Transplanted liver ([facility]-HCC) Liver replaced by transplant Drug therapy Encounter for other specified aftercare S/P liver transplant (CMS-HCC) Cramping of feet Cramp of limb documented in this encounter Additional Health Concerns Assessment Noted Time PHQ-9 Depression Total Score: 2 11/01/19 18 3:00 PM EDT documented as of this encounter Care Teams Assistant Commissioner Relationship Specialty Start Date End Date Edgar Fournier MD [address] [place] [address] PCP - General 08/18/17 06/23/21 Maile Valles, RN Txp Post Coordinator Transplant Hepatology 11/07/17 documented as of this encounter
--- OUTSIDE RECORDS SUMMARY | 2024-07-12 12:54 | XMS_ITS | Encounter Summary ---
Author Organization Health Address [facility] [place] [address] Care Team Providers Care Proposal Consultant Name Role Phone Edgar Fournier MD Primary Care Provider [phone] Maile Valles RN Unavailable Unavail able Source [...] release of HIV test results or diagnoses. [id number] Health Encounter Details Date Type Department Care Team (Late st Contact Info) Description 11/07/2017 Chart Note [facility] Liver Transplant at Outpatient [address] [address] Latrice Brice MA Social History Tobacco Use [...] [facility] Interventional Radiology [address] [place] [address] Herve Carrillo MD [address] Surgery [place] [address] documented as of this encounter Procedures Procedure Name Priority Date/Time Associated Diagnosis Comments CYCLOSPORINE LEVEL Routine 10/31/2017 10 :41 AM EDT documented in this encounter Results * Cyclosporine level (10/31/2017 10:41 AM EDT) Cyclosporine, Blood 145 Whole blood specimen (specimen) us Historical Provider LAB BLOOD ORDERABLES Yoselin l Result documented in this encounter Visit Diagnoses Not on filedocumented in this encounter Additional Health Concerns Assessment Noted Time PHQ-9 Depression Total Score: 2 11/01/19 18 3:00 PM EDT documented as of this encounter Care Teams Proposal Consultant Relationship Specialty Start Date End Date Edgar Fournier MD [address] [place] [address] [place] [address] PCP - General 08/18/17 06/23/21 Maile Valles, RN Txp Post Coordinator Transplant Hepatology 11/07/17 documented as of this encounter
--- OUTSIDE RECORDS SUMMARY | 2024-07-12 12:54 | XMS_ITS | Encounter Summary ---
Author Organization [facility] Address [facility] [place] [address] Care Team Providers Care Fence Repairman Name Role Phone Edgar Fournier MD Primary Care Provider [phone] Maile Valles RN Unavailable Unavail able Source [...] release of HIV test results or diagnoses. [id number] Health Reason for Visit * Reason Comments Labs Only Encounter Details Date Type Department Care Team (Late st Contact Info) Description 12/05/2017 11:00 AM EDT Specimen [facility] Outreach Lab [address] [place] [phone] Eleanor Casey PA Transplanted liver (CMS-HCC); Drug therapy; Low magnesium level; S/P liver transplant (CMS-HCC); Immunosuppression ([facility]-HCC) Social History Tobacco Use Types [...] [facility] Interventional Radiology [address] [place] [address] Herve Carrillo MD [address] [facility] [address] [place] [address] documented as of this encounter Procedures Procedure Name Priority Date/Time Associated Diagnosis Comments HEPATIC FUNCTION PANEL Routine 8 10:29 AM EDT Transplanted liver (CMS-HCC) Drug therapy RENAL FUNCTION PANEL W/EGFR Routine 12/05/2017 10:29 AM EDT Transplanted liver (CMS-HCC) Drug therapy DIFFERENTIAL Routine 12/05/2017 10:29 AM EDT Transplanted liver (CMS-HCC) Drug therapy CBC Routine 12/05/2017 10:29 AM EDT Transplanted liver (CMS-HCC) Drug therapy MAGNESIUM Routine 12/05/2017 10:29 AM EDT Low magnesium level CYTOMEGALOVIRUS DNA, QUANT, RT PCR Routine 12/05/2017 9:58 AM EDT S/P liver transplant (CMS-HCC) Immunosuppression (CMS-HCC) CYCLOSPORINE LEVEL Routine 12/05/2017 9: 58 AM EDT Transplanted liver (CMS-HCC) Drug therapy documented in this encounter Results * Magnesium (12/05/2017 10:29 AM EDT) Magnesium 1.8 1.5 - 2.5 mg/dL 12/05/2017 11:00 AM EDT [facility] Plasma specimen (specimen) 12/05/2017 10:29 AM EDT 12/05/2017 10:29 AM EDT us Chetan Gallagher MD LAB BLOOD ORDERABLES Final Resu lt [facility] [address] [place] [address], [facility] * (ABNORMAL) Renal Function Panel w/EGFR (12/05/2017 10:29 AM EDT) Sodium 141 133 - 146 mmol/L 12/05/2017 11:00 AM EDT [facility] Potassium 5.2 3.5 - 5.3 mmol/L 12/05/2017 11:00 AM EDT [facility] Chloride 105 98 - 110 mmol/L 12/05/2017 11:00 AM EDT [facility] CO2 25 21 - 33 mmol/L 12/05/2017 11:00 AM EDT [facility] Anion Gap 11 3 - 16 mmol/L 12/05/2017 11:00 AM EDT [facility] BUN 40(H) 7 - 25 mg/dL 12/05/2017 11:00 AM EDT [facility] Creatinine 1.89(H) 0.60 - 1.30 mg/dL 12/05/2017 11:00 AM EDT [facility] Glucose 160(H) 70 - 100 mg/dL 12/05/2017 11:00 AM EDT [facility] Calcium 9.1 8.6 - 10.3 mg/dL 12/05/2017 11:00 AM EDT [facility] Phosphorus 4.5 2.1 - 4.7 mg/dL 12/05/2017 11:00 AM EDT [facility] Albumin 3.7 3.5 - 5.7 g/dL 12/05/2017 11:00 AM EDT [facility] Osmolality, Calculated 305 278 - 305 mOsm/kg 12/05/2017 11:00 AM EDT [facility] eGFR AA CKD-EPI 49 See note. 8 11:00 AM EDT [facility] eGFR NONAA CKD-EPI 43 See note. 12/05/2017 11:00 AM EDT [facility] Plasma specimen (specimen) 12/05/2017 10:29 AM EDT 12/05/2017 10:29 AM EDT Narrative [facility] - 12/05/2017 11:00 AM EDT Standing labs every Monday and . Please fax results to [phone]; Critical results call [phone] As of 10/13/2015 the estimated GFR is [...] equation to estimate glomerular filtration rate. ??Jennifer Journal Entry Audit Clerk Med. 2009:150(9):604-12 Eleanor TOTH LAB BLOOD ORDERABLES Final Result [facility] [address] * Hepatic Function Panel (12/05/2017 10:29 AM EDT) Total Bilirubin 0.8 0.0 - 1.5 mg/dL 12/05/2017 11:00 AM EDT [facility] Bilirubin, Direct 0.21 0.00 - 0.40 mg/dL 12/05/2017 11:00 AM EDT [facility] AST 15 13 - 39 U/L 12/05/2017 11:00 AM EDT [facility] ALT 13 7 - 52 U/L 12/05/2017 11:00 AM EDT [facility] Alkaline Phosphatase 87 36 - 125 U/L 12/05/2017 11:00 AM EDT [facility] Total Protein 6.5 6.4 - 8.9 g/dL 12/05/2017 11:00 AM EDT [facility] Albumin 3.7 3.5 - 5.7 g/dL 12/05/2017 11:00 AM EDT [facility] Bilirubin, Indirect 0.59 0.00 - 1.10 mg/dL 12/05/2017 11:00 AM EDT [facility] Plasma specimen (specimen) 12/05/2017 10:29 AM EDT 12/05/2017 10:29 AM EDT Narrative [facility] - 12/05/2017 11:00 AM EDT Standing labs every Monday and . Please fax results to [phone]; Critical results call [phone] Eleanor TOTH LAB BLOOD ORDERABLES Final Result [facility] [address] [id number], [facility] * (ABNORMAL) Differential (12/05/2017 10:29 AM EDT) Neutrophils Relative 71.4 40.0 - 80.0 % 12/05/2017 10:49 AM EDT [facility] Lymphocytes Relative 5.2(L) 15.0 - 45.0 % 12/05/2017 10:49 AM EDT [facility] Monocytes Relative 22.2(H) 0.0 - 12.0 % 12/05/2017 10:49 AM EDT [facility] Eosinophils Relative 0.7 0.0 - 8.0 % 12/05/2017 10:49 AM EDT [facility] Basophils Relative 0.5 0.0 - 1.0 % 12/05/2017 10:49 AM EDT [facility] nRBC 0 0 - 0 /100 WBC 12/05/2017 10:49 AM EDT [facility] Neutrophils Absolute 3,427 1,500 - 7,800 /uL 12/05/2017 10:49 AM EDT [facility] Lymphocytes Absolute 250(L) 850 - 3,900 /uL 12/05/2017 10:49 AM EDT [facility] Monocytes Absolute 1,066(H) 200 - 950 /uL 12/05/2017 10:49 AM EDT [facility] Eosinophils Absolute 34 15 - 500 /uL 12/05/2017 10:49 AM EDT [facility] Basophils Absolute 24 0 - 200 /uL 12/05/2017 10:49 AM EDT [facility] Whole blood specimen (specimen) 12/05/2017 10:29 AM EDT 12/05/2017 10:29 AM EDT Narrative [facility] - 12/05/2017 10:49 AM EDT Standing labs every Monday and . Please fax results to [phone]; Critical results call [phone] Eleanor TOTH LAB BLOOD ORDERABLES Final Result [facility] [address] * (ABNORMAL) CBC (12/05/2017 10:29 AM EDT) WBC 4.8 3.8 - 10.8 10E3/uL 12/05/2017 10:38 AM EDT [facility] RBC 2.91(L) 4.20 - 5.80 10E6/uL 12/05/2017 10:38 AM EDT [facility] Hemoglobin 9.6(L) 13.2 - 17.1 g/dL 12/05/2017 10:38 AM EDT [facility] Hematocrit 28.2(L) 38.5 - 50.0 % 12/05/2017 10:38 AM EDT [facility] MCV 97.2 80.0 - 100.0 fL 12/05/2017 10:38 AM EDT [facility] MCH 33.0 27.0 - 33.0 pg 12/05/2017 10:38 AM EDT [facility] MCHC 33.9 32.0 - 36.0 g/dL 12/05/2017 10:38 AM EDT [facility] RDW 16.0(H) 11.0 - 15.0 % 12/05/2017 10:38 AM EDT [facility] Platelets 269 140 - 400 10E3/uL 12/05/2017 10:38 AM EDT [facility] MPV 6.9(L) 7.5 - 11.5 fL 12/05/2017 10:38 AM EDT [facility] Whole blood specimen (specimen) 12/05/2017 10:29 AM EDT 12/05/2017 10:29 AM EDT Narrative [facility] - 12/05/2017 10:38 AM EDT Standing labs every Monday and . Please fax results to [phone]; Critical results call [phone] us Eleanor TOTH LAB BLOOD ORDERABLES Final Result Performing Organization Address City/[facility]/ZIP Co de Phone Number [facility] [address] * Cytomegalovirus DNA, Quant, RT PCR (12/05/2017 9:58 AM EDT) Pathologist [facility] CMV DNA Qnt <137 IU/mL 12/06/2017 6:37 AM EDT [facility] Comment:Test methodology for CMV quantification is an FDA-approved nucleic acid amplification assay. The Lower Limit of Quantitation (LLOQ) is 137 IU/mL; the linear range is 137- 9,100,000 IU/mL. The limit of Detection is (LoD) is 91 IU/mL. Log10 CMV Qn DNA PI See Note log 10 IU/mL 12/06/2017 6:37 AM EDT [facility] Comment: CMV DNA has been detected, but not quantifiable. ??CMV DNA is below the LLoQ for the assay. ??Log IU/mL cannot be calculated. Plasma specimen (specimen) 12/05/2017 9:58 AM EDT 12/05/2017 10:39 AM EDT us Micha Diaz MD LAB BLOOD ORDERABLES Final Resul t Performing Organization Address [facility]/ZIP Co de Phone Number [facility] [address] [facility] * Cyclosporine level (12/05/2017 9:58 AM EDT) Pathologist [facility] Cyclosporine, Blood 109 100 - 400 ng/mL 12/05/2017 12:54 PM EDT [facility] Comment: Detection limit: ??30 ng/mL. ??Performed via chemiluminescent microparticle immunoassay on the [employer] i1000. Whole blood specimen (specimen) 12/05/2017 9:58 AM EDT 12/05/2017 10:30 AM EDT Narrative [facility] - 12/05/2017 12:54 PM EDT Standing labs every Monday and . Please fax results to [phone]; critical results call [phone] us Eleanor TOTH LAB BLOOD ORDERABLES Final Result [facility] [address] documented in this encounter Visit Diagnoses Diagnosis Transplanted liver (CMS-HCC) Liver replaced by transplant Drug therapy Encounter for other specified aftercare Low magnesium level S/P liver transplant (CMS-HCC) Immunosuppression (CMS-HCC) documented in this encounter Additional Health Concerns Assessment Noted Time PHQ-9 Depression Total Score: 0 12/06/19 18 3:00 PM EDT documented as of this encounter Care Teams Fence Repairman Relationship Specialty Start Date End Date Edgar Fournier MD [address] [place] [address] PCP - General 08/18/17 06/23/21 Maile Valles, RN Txp Post Coordinator Transplant Hepatology 11/07/17 documented as of this encounter
--- OUTSIDE RECORDS SUMMARY | 2024-07-12 12:54 | XMS_ITS | Encounter Summary ---
Author Organization [facility] Address [facility] [place] [address] Care Team Providers Care Voice Network Administrator Name Role Phone Edgar Fournier MD Primary Care Provider [phone] Maile Valles RN Unavailable Unavail able Source [...] release of HIV test results or diagnoses. [id number] Health Reason for Visit * Reason Comments Labs Only Encounter Details Date Type Department Care Team (Late st Contact Info) Description 11/07/2017 10:10 AM EDT Specimen [facility] Outreach Lab [address] [place] [address] Eleanor Casey PA Transplanted liver ([facility]-HCC); Drug therapy Social History Tobacco Use Types [...] Encounter [facility] Interventional Radiology [address] [place] [phone] Herve Carrillo MD [address] Surgery [place] [address] documented as of this encounter Procedures Procedure Name Priority Date/Time Associated Diagnosis Comments DIFFERENTIAL Routine 11/07/2017 10:34 AM EDT Transplanted liver (CMS-HCC) Drug therapy CBC Routine 11/07/2017 10:34 AM EDT Transplanted liver (CMS-HCC) Drug therapy CYCLOSPORINE LEVEL Routine 11/07/2017 10 :33 AM EDT Transplanted liver (CMS-HCC) Drug therapy HEPATIC FUNCTION PANEL Routine 11/07/2017 10:27 AM EDT Transplanted liver (CMS-HCC) Drug therapy RENAL FUNCTION PANEL W/EGFR Routine 11/07/2017 10:27 AM EDT Transplanted liver (CMS-HCC) Drug therapy documented in this encounter Results * (ABNORMAL) Differential (11/07/2017 10:34 AM EDT) Neutrophils Relative 86.8(H) 40.0 - 80.0 % 11/07/2017 10:56 AM EDT [facility] Lymphocytes Relative 5.2(L) 15.0 - 45.0 % 11/07/2017 10:56 AM EDT [facility] Monocytes Relative 7.6 0.0 - 12.0 % 11/07/2017 10:56 AM EDT [facility] Eosinophils Relative 0.1 0.0 - 8.0 % 11/07/2017 10:56 AM EDT [facility] Basophils Relative 0.3 0.0 - 1.0 % 11/07/2017 10:56 AM EDT [facility] nRBC 1(H) 0 - 0 /100 WBC 11/07/2017 10:56 AM EDT [facility] Neutrophils Absolute 5,989 1,500 - 7,800 /uL 11/07/2017 10:56 AM EDT [facility] Lymphocytes Absolute 359(L) 850 - 3,900 /uL 11/07/2017 10:56 AM EDT [facility] Monocytes Absolute 524 200 - 950 /uL 11/07/2017 10:56 AM EDT [facility] Eosinophils Absolute 7(L) 15 - 500 /uL 11/07/2017 10:56 AM EDT [facility] Basophils Absolute 21 0 - 200 /uL 11/07/2017 10:56 AM EDT [facility] Whole blood specimen (specimen) 11/07/2017 10:34 AM EDT 11/07/2017 10:34 AM EDT Narrative [facility] - 11/07/2017 10:56 AM EDT Standing labs every Monday and . Please fax results to [phone]; Critical results call [phone] us Eleanor TOTH LAB BLOOD ORDERABLES Final Result [facility] [address] * (ABNORMAL) CBC (11/07/2017 10:34 AM EDT) WBC 6.9 3.8 - 10.8 10E3/uL 11/07/2017 10:56 AM EDT [facility] RBC 3.04(L) 4.20 - 5.80 10E6/uL 11/07/2017 10:56 AM EDT [facility] Hemoglobin 10.0(L) 13.2 - 17.1 g/dL 11/07/2017 10:56 AM EDT [facility] Hematocrit 29.5(L) 38.5 - 50.0 % 11/07/2017 10:56 AM EDT [facility] MCV 96.9 80.0 - 100.0 fL 11/07/2017 10:56 AM EDT [facility] MCH 32.7 27.0 - 33.0 pg 11/07/2017 10:56 AM EDT [facility] MCHC 33.7 32.0 - 36.0 g/dL 11/07/2017 10:56 AM EDT [facility] RDW 17.6(H) 11.0 - 15.0 % 11/07/2017 10:56 AM EDT [facility] Platelets 370 140 - 400 10E3/uL 11/07/2017 10:56 AM EDT [facility] MPV 7.1(L) 7.5 - 11.5 fL 11/07/2017 10:56 AM EDT [facility] Whole blood specimen (specimen) 11/07/2017 10:34 AM EDT 11/07/2017 10:34 AM EDT Narrative [facility] - 11/07/2017 10:56 AM EDT Standing labs every Monday and . Please fax results to [phone]; Critical results call [phone] Eleanor TOTH LAB BLOOD ORDERABLES Final Result [facility] [address] * Cyclosporine level (11/07/2017 10:33 AM EDT) [facility] Cyclosporine, Blood 195 100 - 400 ng/mL 11/07/2017 1:42 PM EDT [facility] Comment: Detection limit: ??30 ng/mL. ??Performed via chemiluminescent microparticle immunoassay on the [employer] i1000. Whole blood specimen (specimen) 11/07/2017 10:33 AM EDT 11/07/2017 10:33 AM EDT Narrative [facility] - 11/07/2017 1:42 PM EDT Standing labs every Monday and . Please fax results to [phone]; critical results call [phone] us Eleanor TOTH LAB BLOOD ORDERABLES Final Result [facility] [address] [facility]. [address] * (ABNORMAL) Renal Function Panel w/EGFR (11/07/2017 10:27 AM EDT) Sodium 141 133 - 146 mmol/L 11/07/2017 11:07 AM EDT [facility] Potassium 3.9 3.5 - 5.3 mmol/L 11/07/2017 11:07 AM EDT [facility] Chloride 101 98 - 110 mmol/L 11/07/2017 11:07 AM EDT [facility] CO2 29 21 - 33 mmol/L 11/07/2017 11:07 AM EDT [facility] Anion Gap 11 3 - 16 mmol/L 11/07/2017 11:07 AM EDT [facility] BUN 36(H) 7 - 25 mg/dL 11/07/2017 11:07 AM EDT [facility] Creatinine 1.64(H) 0.60 - 1.30 mg/dL 11/07/2017 11:07 AM EDT [facility] Glucose 134(H) 70 - 100 mg/dL 11/07/2017 11:07 AM EDT [facility] Calcium 9.4 8.6 - 10.3 mg/dL 11/07/2017 11:07 AM EDT [facility] Phosphorus 4.1 2.1 - 4.7 mg/dL 11/07/2017 11:07 AM EDT [facility] Albumin 3.6 3.5 - 5.7 g/dL 11/07/2017 11:07 AM EDT [facility] Osmolality, Calculated 302 278 - 305 mOsm/kg 11/07/2017 11:07 AM EDT [facility] eGFR AA CKD-EPI 58 See note. 8 11:07 AM EDT [facility] eGFR NONAA CKD-EPI 50 See note. 11/07/2017 11:07 AM EDT [facility] Plasma specimen (specimen) 11/07/2017 10:27 AM EDT 11/07/2017 10:27 AM EDT Narrative [facility] - 11/07/2017 11:07 AM EDT Standing labs every Monday and . Please fax results to [phone]; Critical results call [phone] As of 10/13/2015 the estimated GFR is [...] equation to estimate glomerular filtration rate. ??Jennifer Heel Stainer Med. 2009:150(9):604-12 us Eleanor TOTH LAB BLOOD ORDERABLES Final Result [facility] [address] * (ABNORMAL) Hepatic Function Panel (11/07/2017 10:27 AM EDT) Total Bilirubin 1.0 0.0 - 1.5 mg/dL 11/07/2017 11:07 AM EDT [facility] Bilirubin, Direct 0.43(H) 0.00 - 0.40 mg/dL 11/07/2017 11:07 AM EDT [facility] AST 16 13 - 39 U/L 11/07/2017 11:07 AM EDT [facility] ALT 17 7 - 52 U/L 11/07/2017 11:07 AM EDT [facility] Alkaline Phosphatase 77 36 - 125 U/L 11/07/2017 11:07 AM EDT [facility] Total Protein 6.6 6.4 - 8.9 g/dL 11/07/2017 11:07 AM EDT [facility] Albumin 3.6 3.5 - 5.7 g/dL 11/07/2017 11:07 AM EDT [facility] Bilirubin, Indirect 0.57 0.00 - 1.10 mg/dL 11/07/2017 11:07 AM EDT [facility] Plasma specimen (specimen) 11/07/2017 10:27 AM EDT 11/07/2017 10:27 AM EDT Narrative [facility] - 11/07/2017 11:07 AM EDT Standing labs every Monday and . Please fax results to [phone]; Critical results call [phone] Eleanor TOTH LAB BLOOD ORDERABLES Final Result [facility] [address] [place] [address], [facility] documented in this encounter Visit Diagnoses Diagnosis Transplanted liver (CMS-HCC) Liver replaced by transplant Drug therapy Encounter for other specified aftercare documented in this encounter Additional Health Concerns Assessment Noted Time PHQ-9 Depression Total Score: 2 11/01/19 18 3:00 PM EDT documented as of this encounter Care Teams Voice Network Administrator Relationship Specialty Start Date End Date Edgar Fournier MD [address] [place] [address] PCP - General 08/18/17 06/23/21 Maile Valles, RN Txp Post Coordinator Transplant Hepatology 11/07/17 documented as of this encounter
--- OUTSIDE RECORDS SUMMARY | 2024-07-12 12:54 | XMS_ITS | Encounter Summary ---
Author Organization Health Address [facility] [place] [address] Care Team Providers Care Contracts Administrator Name Role Phone Edgar Fournier MD Primary Care Provider [phone] Maile Valles RN Unavailable Unavail able Source [...] release of HIV test results or diagnoses. [id number] Health Encounter Details Date Type Department Care Team (Late st Contact Info) Description 11/14/2017 Orders Only [facility] Liver Transplant at Outpatient [address] [address] Maile Valels, JANA Immunosuppressed status (CMS-HCC) (Primary Dx); S/P liver transplant (CMS-HCC) Social History Tobacco Use [...] [facility] Interventional Radiology [address] [place] [address] Herve Carrillo MD [address] [facility] [address] [place] [address] documented as of this encounter Visit Diagnoses Diagnosis Immunosuppressed status (CMS-HCC)- Primary S/P liver transplant (CMS-HCC) documented in this encounter Additional Health Concerns Assessment Noted Time PHQ-9 Depression Total Score: 2 11/01/19 18 3:00 PM EDT documented as of this encounter Care Teams Contracts Administrator Relationship Specialty Start Date End Date Edgar [place]nier [place] [phone] PCP - General 08/18/17 06/23/21 Maile Valles, RN Txp Post Coordinator Transplant Hepatology 11/07/17 documented as of this encounter
--- OUTSIDE RECORDS SUMMARY | 2024-07-12 12:54 | XMS_ITS | Encounter Summary ---
Author Organization [facility] Address [address] [place] [address] Care Team Providers Care Youth Development Professional Name Role Phone Edgar Fournier MD Primary Care Provider [phone] Maile Valles RN Unavailable Unavail able Source [...] release of HIV test results or diagnoses. [id number] Health Reason for Visit * Reason Comments ER visit Encounter Details Date Type Department Care Team (Late st Contact Info) Description 11/13/2017 Telephone [facility] Liver Transplant at Outpatient [address] [phone] Sharyn Villalba, SATELLITE DISH TECHNICIAN visit Social History Tobacco Use Types Packs/Day Years [...] Telephone Encounter - Sharyn Villalba RN - 11/13/2017 7:12 PM EDT Spoke with ER physician via hospital transfer table operator helper Patient currently in ER for evaluation of possible low Mag. Mag 1.4, glucose 320, K+ 5.6, Hgb 9 Plan to treat with IV mag, insulin and discharge. Patient to be discharged for office visit tomorrow. documented in this encounter Plan of Treatment Upcoming Encounters Date Type Department Care Team (Late st Contact Info) Description 07/15/2024 9:00 AM EST Hospital Encounter [facility] Interventional Radiology [address] [place] [phone] Herve Carrillo MD [address] [facility] [address] [place] [address] documented as of this encounter Visit Diagnoses Not on filedocumented in this encounter Additional Health Concerns Assessment Noted Time PHQ-9 Depression Total Score: 2 11/01/19 18 3:00 PM EDT documented as of this encounter Care Teams Youth Development Professional Relationship Specialty Start Date End Date Edgar Fournier MD [address] [place] [address] PCP - General 08/18/17 06/23/21 Maile Valles, JANA Txp Post Coordinator Transplant Hepatology 11/07/17 documented as of this encounter
--- OUTSIDE RECORDS SUMMARY | 2024-07-12 12:54 | XMS_ITS | Encounter Summary ---
Author Organization Health Address [facility] [place] [address] Care Team Providers Care Spool Worker Name Role Phone Edgar Fournier MD Primary Care Provider [phone] Maile Valles RN Unavailable Unavail able Source [...] release of HIV test results or diagnoses. [id number] Health Reason for Visit * Reason Onset Date Comments Medication Refill 12/05/2017 Encounter Details Date Type Department Care Team (Late st Contact Info) Description 12/05/2017 Refill [facility] Liver Transplant at Outpatient [address] [address] Maile Valles, JANA Immunosuppression ([facility]-HCC) Social History Tobacco Use Types Packs/Day Years [...] Hospital Encounter [facility] Interventional Radiology [address] [place] [address] Herve Carrillo MD [address] [facility] [address] [place] [address] documented as of this encounter Visit Diagnoses Diagnosis Immunosuppression (CMS-HCC) documented in this encounter Additional Health Concerns Assessment Noted Time PHQ-9 Depression Total Score: 0 12/06/19 18 3:00 PM EDT documented as of this encounter Care Teams Spool Worker Relationship Specialty Start Date End Date Edgar Fournier MD [address] [place] [address] PCP - General 08/18/17 06/23/21 Maile Valles, RN Txp Post Coordinator Transplant Hepatology 11/07/17 documented as of this encounter
--- OUTSIDE RECORDS SUMMARY | 2024-07-12 12:54 | XMS_ITS | Encounter Summary ---
Author Organization [facility] Address [address] [place] [address] Care Team Providers Care Study Director Name Role Phone Edgar Fournier MD Primary Care Provider [phone] Source Comments This information has been disclosed [...] release of HIV test results or diagnoses. [id number] Health Reason for Visit * Reason Comments Results 11/02/2017 labs Encounter Details Date Type Department Care Team (Late st Contact Info) Description 11/06/2017 Telephone [facility] Liver Transplant at Outpatient [address] [phone] Sharyn Villalba, RN Results (11/02/2017 labs) Social History Tobacco Use Types Packs/Day [...] encounter Miscellaneous Notes * Telephone Encounter - NAVNEET Johnson - 11/06/2017 3:27 PM EDT No changes. Labs tomorrow as noted. * Telephone Encounter - Sharyn Villalba RN - 11/06/2017 3:13 PM EDT Cyclosporin level 138 (goal 150-200) Has clinic appt tomorrow with lab draw. documented in this encounter Plan of Treatment Upcoming Encounters Date Type Department Care Team (Late st Contact Info) Description 07/15/2024 9:00 AM EST Hospital Encounter [facility] Interventional Radiology [address] [place] [phone] Herve Carrillo MD [address] [facility] [address] [facility] [place] [phone] documented as of this encounter Visit Diagnoses Not on filedocumented in this encounter Additional Health Concerns Assessment Noted Time PHQ-9 Depression Total Score: 2 11/01/19 18 3:00 PM EDT documented as of this encounter Care Teams Study Director Relationship Specialty Start Date End Date Edgar Fournier [place] [phone] PCP - General 08/18/17 06/23/21 documented as of this encounter
--- OUTSIDE RECORDS SUMMARY | 2024-07-12 12:54 | XMS_ITS | Encounter Summary ---
Author Organization [facility] Address [facility] [place] [address] Care Team Providers Care Needle Bar Molder Name Role Phone Edgar Fournier MD Primary Care Provider [phone] Maile Valles RN Unavailable Unavail able Source [...] release of HIV test results or diagnoses. [id number] Health Reason for Visit * Reason Onset Date Comments Results 11/14/2017 Medication Dose Change 11/14/2017 Encounter Details Date Type Department Care Team (Late st Contact Info) Description 11/14/2017 Telephone [facility] Liver Transplant at Outpatient [address] [phone] Latrice Brice MA Results; Medication Dose Change Social History Tobacco Use [...] Encounter - Maile Jean Baptiste RN - 11/14/2017 3:14 PM EDT Reviewed results and recommendations with the patient who verbalized understanding and is comfortable with the plan of care. * Telephone Encounter - America Vazquez MD - 11/14/2017 3:11 PM EDT Decrease cyclosporine to 150mg twice daily * Telephone Encounter - Latrice Brice MA - 11/14/2017 2:07 PM EDT This MA spoke with Kym regarding pentamidine treatment scheduled for 11-23-17 with a 10:15 arrival time [facility] register ground floor bring inhaler. Kym verbalized understanding and stated Aiden would get standing labs the day of as well all in one trip. documented in this encounter Plan of Treatment Upcoming Encounters Date Type Department Care Team (Late st Contact Info) Description 07/15/2024 9:00 AM EST Hospital Encounter [facility] Interventional Radiology [address] [place] [phone] Herve Carrillo MD [address] [facility] 3[address] Surgery [place] [phone] documented as of this encounter Visit Diagnoses Diagnosis Encounter for therapeutic drug level monitoring documented in this encounter Additional Health Concerns Assessment Noted Time PHQ-9 Depression Total Score: 2 11/01/19 18 3:00 PM EDT documented as of this encounter Care Teams Needle Bar Molder Relationship Specialty Start Date End Date [place] [address] PCP - General 08/18/17 06/23/21 Maile Valles, RN Txp Post Coordinator Transplant Hepatology 11/07/17 documented as of this encounter
--- OUTSIDE RECORDS SUMMARY | 2024-07-12 12:54 | XMS_ITS | Encounter Summary ---
Author Organization Health Address [facility] [place] [address] Care Team Providers Care Bridge Painter Helper Name Role Phone Edgar Fournier MD Primary Care Provider [phone] Maile Valles RN Unavailable Unavail able Source [...] release of HIV test results or diagnoses. [id number] Health Encounter Details Date Type Department Care Team (Late st Contact Info) Description 12/04/2017 Telephone [facility] Liver Transplant at Outpatient [address] [phone] Maile Valles, RN Social History Tobacco Use [...] Encounter - Maile Jean Baptiste RN - 12/04/2017 2:28 PM EDT Patient c/o chest congestion, stuffy nose, watery eyes. Denies fever. Advised patient to take Benadryl or Claritin and Mucinex. Patient can take Tylenol for headache if needed (max 2000 mg/day). Patient will be seen in Liver Clinic tomorrow. Advised patient to call if fever > 101.4 Patient verbalized understanding and is agreeable to the plan of care. documented in this encounter Plan of Treatment Upcoming Encounters Date Type Department Care Team (Late st Contact Info) Description 07/15/2024 9:00 AM EST Hospital Encounter [facility] Interventional Radiology [address] [place] [phone] Herve Carrillo MD [address] [facility] [address] [place] [phone] documented as of this encounter Visit Diagnoses Not on filedocumented in this encounter Additional Health Concerns Assessment Noted Time PHQ-9 Depression Total Score: 2 11/01/19 18 3:00 PM EDT documented as of this encounter Care Teams Bridge Painter Helper Relationship Specialty Start Date End Date Edgar Fournier MD [address] [place] [address] [place] [address] PCP - General 08/18/17 06/23/21 Maile Valles, JANA Txp Post Coordinator Transplant Hepatology 11/07/17 documented as of this encounter
--- OUTSIDE RECORDS SUMMARY | 2024-07-12 12:54 | XMS_ITS | Encounter Summary ---
Author Organization Health Address [facility] [place] [address] Care Team Providers Care Manager Diesel Name Role Phone Edgar Fournier MD Primary Care Provider [phone] Maile Valles RN Unavailable Unavail able Source [...] release of HIV test results or diagnoses. [id number] Health Encounter Details Date Type Department Care Team (Late st Contact Info) Description 11/13/2017 Telephone [facility] Liver Transplant at Outpatient [address] [phone] Maile Valles, RN Social History Tobacco Use [...] Encounter - Maile Jean Baptiste RN - 11/13/2017 3:24 PM EDT Patient called back stating that the pain in his feet is too much to bear and will be going to his local ED. Patient still plans on coming to his clinic appointment tomorrow. * Telephone Encounter - Maile Jean Baptiste RN - 11/13/2017 2:36 PM EDT Patient called c/o of numbness, pain, and coldness in his feet. He currently takes 600 mg gabapentin TID. He does not think that it is neuropathy. He also c/o of cramping in his feet. He states that he notices more pain after taking his medications. Patient will be seen in clinic tomorrow morning. Will forward to Dep Provider for review. documented in this encounter Plan of Treatment Upcoming Encounters Date Type Department Care Team (Late st Contact Info) Description 07/15/2024 9:00 AM EST Hospital Encounter [facility] Interventional Radiology [address] [place] [phone] Herve Carrillo MD 3130 [facility] 3[address] [place] [phone] documented as of this encounter Results * Magnesium (11/14/2017 9:50 AM EDT) Magnesium 1.8 1.5 - 2.5 mg/dL 11/14/2017 10:[address] [facility] Plasma specimen (specimen) 11/14/2017 9:50 AM EDT 11/14/2017 10:08 AM EDT America Vazquez MD LAB BLOOD ORDERABLES Fi nal Result [facility] [address] [place] [address], [facility] documented in this encounter Visit Diagnoses Diagnosis S/P liver transplant (CMS-HCC)- Primary Cramping of feet Cramp of limb documented in this encounter Additional Health Concerns Assessment Noted Time PHQ-9 Depression Total Score: 2 11/01/19 18 3:00 PM EDT documented as of this encounter Care Teams Manager Diesel Relationship Specialty Start Date End Date Edgar Fournier MD [address] [place] [address] PCP - General 08/18/17 06/23/21 Maile Valles, RN Txp Post Coordinator Transplant Hepatology 11/07/17 documented as of this encounter
--- OUTSIDE RECORDS SUMMARY | 2024-07-12 12:54 | XMS_ITS | Encounter Summary ---
Author Organization Health Address [facility] [place] [address] Care Team Providers Care Plastic Maker Name Role Phone Edgar Fournier MD Primary Care Provider [phone] Maile Valles RN Unavailable Unavail able Source [...] release of HIV test results or diagnoses. [id number] Health Encounter Details Date Type Department Care Team (Late st Contact Info) Description 11/07/2017 Nutrition [facility] Liver Transplant at Outpatient [address] [phone] Social History Tobacco Use Types Packs/Day [...] as of this encounter Progress Notes * Madelyn Kwok RD - 11/07/2017 3:04 PM EDT Follow Up Liver Transplant Nutrition Assessment Met with Aiden Stauffer and to review basic diet principles and follow-up on nutrition parameters. Pertinent Information: Pt is s/p OLT POD#30. Pt reports improving ascites and denied any edema at this time. States he continues with good appetite and PO intake but is having some altered taste. Reports consuming 3 meals/day with protein at every meal. Noted with continued elevated blood sugar levels. Has decent compliance with diabetic diet, but provided tips and suggestions to further improve food choices. Pt is consuming 2 Boost glucose control/day, recommended pt no longer drink supplements. Pt was not happy as he likes the supplements and stated he may still drink them. Reports walking regularly, encouraged increasing physical activity as able. Current Outpatient Prescriptions on File Prior to Visit Medication Sig [...] 5 ??? blood-glucose meter (ONETOUCH VERIO SYSTEM) [facility] Use as instructed. 1 each 0 ??? carvedilol (COREG) 25 MG tablet Take 2 tablets (50 mg total) by mouth 2 times a day with meals.120 tablet 5 ??? cycloSPORINE modified (,NEORAL/GENGRAF,) 100 MG capsule Take 2 capsules (200 mg total) by mouth2 times a day. 120 capsule 11 ??? cycloSPORINE modified (NEORAL/GENGRAF) 25 MG capsule Take 3 tablets (75 mg) daily in addition to 100 mg tablets twice daily (total 175 mg twice daily) Indications: Prevention of Liver Transplant Rejection 480 capsule 5 ??? entecavir (BARACLUDE) 1 MG tablet Take 1 tablet (1 mg total) by mouth daily. 30 tablet 11 ??? ergocalciferol (ERGOCALCIFEROL) 50,000 unit capsule Take 1 capsule (50,000 Units total) by mouth once a week. 4 capsule 5 ??? esomeprazole (NEXIUM) 40 MG capsule Take 1 capsule (40 mg total) by mouth every morning before breakfast. 30 capsule 5 ??? gabapentin (NEURONTIN) 600 MG tablet Take [...] PM. ) 15 mL 5 ??? lancets ([employer] [facility] LANCETS) 33 gauge Misc Use 1 strip as directed 4 times daily before meals and at bedtime. 150 each 5 ??? melatonin 3 mg Tab Take 2 tablets (6 mg total) by mouth at bedtime. 30 tablet 0 ??? mycophenolate (CELLCEPT) 250 mg capsule Take 2 capsules (500 mg total) by mouth 2 times a day. 120 capsule 11 ??? NIFEdipine (PROCARDIA-XL) 60 MG (OSM) 24 hr tablet Take 1 tablet (60 mg total) by mouth daily. 30 tablet 0 ??? oxyCODONE (ROXICODONE) 5 MG immediate release [...] Use as instructed. 150 each 5 ??? predniSONE (DELTASONE) 5 MG tablet Take 2 tablets by mouth daily. Indications: Prevention of Liver Transplant Rejection 120 tablet 5 ??? sulfamethoxazole-trimethoprim (BACTRIM,SEPTRA) 400-80 mg per tablet Take 1 tablet by mouth daily. 30 tablet 5 ??? tiZANidine (ZANAFLEX) 4 MG capsule Take 0.5 mg by mouth at bedtime as needed for Muscle spasms. ??? traMADol (ULTRAM) 50 mg tablet Take 1 tablet (50 mg total) by mouth every 6 hours as needed forPain for up to 30 days. 60 tablet 0 ??? valGANciclovir (VALCYTE) 450 mg tablet Take 2 tablets (900 mg total) by mouth daily. 60 tablet 2 ??? [DISCONTINUED] amLODIPine (NORVASC) 10 MG tablet Take 1 tablet (10 mg total) by mouth daily. 30tablet 6 ??? [DISCONTINUED] cycloSPORINE modified (NEORAL/GENGRAF) 25 MG capsule Take 8 capsules (200 mg total) by mouth 2 times a day. 480 capsule 5 ??? [DISCONTINUED] furosemide (LASIX) 40 MG tablet Take 1 tablet (40 mg total) by mouth daily for 14 days. 14 tablet 0 ??? [DISCONTINUED] NIFEdipine (PROCARDIA-XL) 60 MG (OSM) 24 hr tablet Take 1 tablet (60 mg total) by mouth daily. 30 tablet 0 ??? [DISCONTINUED] nystatin (MYCOSTATIN) 100,000 unit/mL suspension Take 5 mLs (500,000 Units total) by mouth 3 times a day. 473 mL 0 ??? [DISCONTINUED] predniSONE (DELTASONE) 5 MG tablet Take 3 tablets by mouth daily. 120 tablet 5 ??? [DISCONTINUED] predniSONE (DELTASONE) 5 MG tablet Take 2 tablets by mouth daily. Indications: Prevention of Liver Transplant Rejection 120 tablet 5 No current facility-administered medications on file prior to visit. Labs: Lab Results Component Value Date HGBA1C 5.4 10/09/2017 Lab Results Component Value Date ALT 17 11/07/2017 AST 16 11/07/2017 ALKPHOS 77 11/07/2017 BILITOT 1.0 11/07/2017 Lab Results Component Value Date ALBUMIN 3.6 11/07/2017 ALBUMIN 3.6 11/07/2017 Lab Results Component Value Date CREATININE 1.64 (H) 11/07/2017 BUN 36 (H) 11/07/2017 NA 141 11/07/2017 K 3.9 11/07/2017 Lab Results Component Value Date MG 1.6 10/30/2017 PHOS 4.1 11/07/2017 Lab Results Component Value Date CRIV59L 19.4 (L) 10/08/2017 No results found for: FOLATE No results found for: [id number] Anthropometrics: ANTHROPOMETRICS 10/07/2017 10/10/2017 10/27/2017 10/31/2017 11/07/2017 HEIGHT - 5' 7 - 5' 7 5' 7 WEIGHT - - 282 lbs 3 oz 272 lbs 241 lbs BODY MASS INDEX 44.2 - - 42.6 37.75 Reported ascites/ muscle loss Physician recommended diet: Low Sodium, DM and Protein Appetite: Good Current Eating Pattern (typical foods eaten) Breakfast: sausage, egg and biscuit Lunch: turkey burger on wheat bread, cottage cheese Dinner: turkey burger on wheat bread, cottage cheese with pears Nutrition Diagnosis Food & Nutrition Related Knowledge Deficit Related to limited prior education regarding diet for low sodium/diabetes As evidenced by patient with many questions about diet & self-report of limited prior education Nutritional Intervention: Regular schedule of high protein meals/snacks, General/healthful diet andNutrition education Goals: Reinforcement of the benefits of daily physical activity, Provision of adequate intake via food andsupplement for vitamins and minerals and Select food consistent with nutrition education for low-sodium/diabetes/weight reduction Madelyn Kwok RD, LD Pager#[phone] documented in this encounter Plan of Treatment Upcoming Encounters Date Type Department Care Team (Late st Contact Info) Description 07/15/2024 9:00 AM [facility] Hospital Encounter [facility] Interventional Radiology [address] [place] [phone] Herve Carrillo MD 3[address] [facility] [address] [place] [address] documented as of this encounter Visit Diagnoses Not on filedocumented in this encounter Additional Health Concerns Assessment Noted Time PHQ-9 Depression Total Score: 2 11/01/19 18 3:00 PM EDT documented as of this encounter Care Teams Plastic Maker Relationship Specialty Start Date End Date Edgar Fournier MD [address] [place] [address] [place] [address] PCP - General 08/18/17 06/23/21 Maile Valles, RN Txp Post Coordinator Transplant Hepatology 11/07/17 documented as of this encounter
--- OUTSIDE RECORDS SUMMARY | 2024-07-12 12:54 | XMS_ITS | Encounter Summary ---
Author Organization Health Address [facility] [place] [address] Care Team Providers Care Burring Wheel Operator Name Role Phone Edgar Fournier MD Primary Care Provider [phone] Maile Valles RN Unavailable Unavail able Source [...] release of HIV test results or diagnoses. [id number] Health Encounter Details Date Type Department Care Team (Late st Contact Info) Description 11/30/2017 Chart Note [facility] Liver Transplant at Outpatient [address] [phone] Latrice Brice MA Social History Tobacco Use [...] Encounter [facility] Interventional Radiology [address] [place] [address] Herve Carrillo MD [address] [facility] [address] [place] [address] documented as of this encounter Procedures Procedure Name Priority Date/Time Associated Diagnosis Comments CYTOMEGALOVIRUS DNA, QUANT, RT PCR Routine 11/27/2017 9:45 AM EDT CYCLOSPORINE LEVEL Routine 11/27/2017 9: 45 AM EDT documented in this encounter Results * Cyclosporine level (11/27/2017 9:45 AM EDT) Cyclosporine, Blood 124 Whole blood specimen (specimen) Historical Provider MD LAB BLOOD ORDERABLES Yoselin l Result * Cytomegalovirus DNA, Quant, RT PCR (11/27/2017 9:45 AM EDT) CMV Quant DNA PCR (Plasma) negative Plasma specimen (specimen) Historical Provider MD LAB BLOOD ORDERABLES Yoselin l Result documented in this encounter Visit Diagnoses Not on filedocumented in this encounter Additional Health Concerns Assessment Noted Time PHQ-9 Depression Total Score: 2 11/01/19 18 3:00 PM EDT documented as of this encounter Care Teams Burring Wheel Operator Relationship Specialty Start Date End Date [place] [address] PCP - General 08/18/17 06/23/21 Maile Valles, RN Txp Post Coordinator Transplant Hepatology 11/07/17 documented as of this encounter
--- OUTSIDE RECORDS SUMMARY | 2024-07-12 12:54 | XMS_ITS | Encounter Summary ---
Author Organization Health Address [facility] [place]note 2[place]0 [place] [address] Care Team Providers Care Lithographed Plate Inspector Name Role Phone Edgar Fournier MD Primary Care Provider [phone] Maile Valles RN Unavailable Unavail able Source [...] release of HIV test results or diagnoses. [id number] Health Reason for Visit * Reason Comments Liver Transplant Follow-up Encounter Details Date Type Department Care Team (Latest Contact Info) Description 12/05/2017 10:15 AM EDT Office Visit [facility] Liver Transplant at [facility] [address] [place] [address] Micha Diaz MD Shah, Shimul A, MD [address] [facility] [address] Transplant [place] [phone] Immunosuppression (CMS-HCC) (Primary Dx) Social History Tobacco Use [...] Reading Time Taken Comments Blood Pressure 153/85 12/05/2017 7:00 AM EDT Pulse 91 12/05/2017 7:00 AM EDT Temperature 36.8 ??C (98.3 ??F) 12/05/2017 7:00 AM ED T Respiratory Rate 18 12/05/2017 7:00 AM EDT Oxygen Saturation 97% 12/05/2017 7:00 AM EDT Inhaled Oxygen Concentration 97% 12/05/2017 7 :00 AM EDT Weight - - Height 170.2 cm (5' 7 ) 12/05/2017 7:00 AM EDT Body Mass Index - - documented in this encounter Patient Instructions * Patient Instructions* Ami Mendenhall MD - 12/05/2017 10:15 AM EDT 1. Restart valcyte 2 tablets daily. 2. Labs every other week. 3. Follow up in 1 month. documented in this encounter Progress Notes * Connie Hand MA - 12/05/2017 10:15 AM EDT Review of Systems Constitutional: Negative. HENT: Negative. Eyes: Negative. Respiratory: Negative. Cardiovascular: Negative. Gastrointestinal: Positive for abdominal pain. Genitourinary: Negative. Musculoskeletal: Positive for back pain. Skin: Negative. Neurological: Positive for tingling. Endo/Heme/Allergies: Negative. Psychiatric/Behavioral: Negative. * Nora Ashley PharmD - 12/05/2017 10:15 AM EDT Transplant Pharmacist Assessment and Recommendations: Current Outpatient Prescriptions Medication Sig ??? aspirin 81 MG chewable tablet Chew 1 tablet (81 mg total) by mouth daily with breakfast. ??? blood sugar diagnostic [facility] Use to test blood sugar up to 4 times a day. Diagnosis for use: E 9.65. For use with One Touch Verio meters. ??? blood-glucose meter (ONETOUCH VERIO SYSTEM) [facility] [...] breakfast. Taking every other day ) ??? gabapentin (NEURONTIN) 600 MG tablet Take [...] before meals and at bedtime. ??? magnesium chloride (SLOW-MAG) 71.5 mg TbEC Take 1 tablet by mouth 2 times a day. ??? magnesium oxide (MAG-OX) 400 mg tablet Take 1 tablet (400 mg total) by mouth 2 times a day. Indications: hypomagnesemia (Patient taking differently: Take 400 mg by mouth 4 times a day. Indications: hypomagnesemia ) ??? melatonin 10 mg Cap Take 1 capsule by mouth at bedtime. ??? mycophenolate (CELLCEPT) [...] 1 dose on 10/09/17) Currently on cyclosporine 150 mg bid and mycophenolate 500mg bid. Prednisone tapered and discontinued early to assist with blood sugar management. ?? Reason for CsA use: switched on 10/23 [...] in the past 12 months: none Prophylaxis: Viral (Valcyte 900mg daily): 6??months??per protocol (D+/R-). ??Discontinue: 04/07/18. Per patient discontinued last visit 4/12 so hasn't been taking it. Will need to restart. PCP (Pentamidine, switched from bactrim due to hyperkalemia): 6??months per protocol. ??Discontinue: 04/07/18. Last pentamidine dose 11/23/17. ASA: hepatic artery reconstruction Anti-HBcAb +/ALEXANDRA + donor: No HBIG given since HepB surface antibody 171. On entecavir 1 mg daily for life ?? Blood Sugars: diabetic prior to transplant On bolus and correction insulin. ??Recommend continue current regimen and follow up with endocrine WORKFORCE MANAGER. ?? Blood pressure: on coreg and nifedipine 153/85 today. Continue to monitor and assess if increase in medications are necessary. Continue to follow. ?? Leg/feet cramping: On gabapentin 900 mg TID (on 600 TID prior to transplant, recently increased by PCP), magnesium oxide AND SloMag and flexeril PRN. Reports since starting both magnesium's feet feeling much better. Per patient neurology initiated SloMag in addition to the Mag Oxide he was already taking. ?? Adherence: Patient reports missing 0 doses in the past 7 days The following barriers to adherence have been identified: None It is my assessment that the patient demonstrates good adherence and medication understanding. Wifeassists with medication management. She reviewed medication card with me in clinic today. ?? Recommendations: 1. Tacrolimus: follow up on level from today and adjust as necessary. 2. Valcyte: restart therapy 3. Pentamadine: next dose ~ 12/23/17 * Ami Mendenhall MD - 12/05/2017 10:15 AM EDT Transplant Surgery Evaluation and Note Patient: Aiden Stauffer Age: 42 y.o. Reason for Visit: Post op visit POD 58 A 42 y.o. male who is s/p OLT on 10/08 due to SAL. He is doing well. Not on pain meds. Diet well controlled. Wants to go back to work. Active and engaged. Review of Systems The following portions of the patient history were reviewed and updated as appropriate: allergies, current medications, family, medical, surgical and social history and problem list. Review of systems performed. See REBEKAH HERNANDEZ review. Vital Signs: BP Readings from Last 3 Encounters: 12/05/17 153/85 11/23/17 147/83 11/24/17 150/89 Wt Readings from Last 3 Encounters: 11/23/17 (!) 249 lb (112.9 kg) 11/14/17 (!) 241 lb (109.3 kg) 11/07/17 (!) 241 lb (109.3 kg) BMI: Estimated body mass index is 39 kg/m?? as calculated from the following: Height as of 11/23/17: 5' 7 (1.702 m). Weight as of 11/23/17: 249 lb (112.9 kg). BSA: Estimated body surface area is 2.31 meters squared as calculated from the following: Height as of 11/23/17: 5' 7 (1.702 m). Weight as of 11/23/17: 249 lb (112.9 kg). Past Medical History: Diagnosis Date ??? Acute pancreatitis ??? Ascites ??? Diabetes mellitus (CMS Dx) ??? Esophageal varices with bleeding (CMS Dx) ??? GERD (gastroesophageal reflux disease) ??? Hepatic encephalopathy (CMS Dx) ??? Hypertension ??? 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 Vitamin D deficiency Past Surgical History: Procedure Laterality Date ??? LIVER TRANSPLANTATION N/A 10/08/2017 Procedure: TRANSPLANT LIVER; Surgeon: Ami Mendenhall MD; Location: [facility]; Service: Transplant; Laterality: N/A; ??? TIPS PROCEDURE 10/2016 ??? TIPS Revision 04/2017 Family History Problem Relation Age of Onset ??? Diabetes Sister Social History Social History ??? Marital status: [...] History Narrative ??? No narrative on file Physical Exam: Vitals: 12/05/17 0700 BP: 153/85 BP Location: Right arm Patient Position: Sitting Pulse: 91 Resp: 18 Temp: 98.3 ??F (36.8 ??C) TempSrc: Oral SpO2: 97% Height: 5' 7 (1.702 m) General: no apparent distress, conversant Eyes: anicteric sclera, moist conjunctiva, pupils equal and round reactive to light HENT: atraumatic mucous membranes moist Neck: trachea midline, full range of motion, no thyromegaly or adenopathy Cardiac: regular rate and rhythm, no murmurs, rubs, and gallops Respiratory: clear to auscultation bilaterally, normal respiratory effort Gastrointestinal: abdomen is soft nontender, nondistended, no palpable masses. Incision c/d/I. Extremity: warm, no clubbing, cyanosis, or edema Lymph: no palpable lymphadenopathy Skin: no rashes or ulcers, normal temperature and turgor Psych: appropriate affect, alert and oriented to person, place, and time Labs: Lab name 10/10/17 1253 11/27/17 0945 12/05/17 1029 HEMOGLOBIN 8.8* < > 9.5* 9.6* HEMATOCRIT 25.5* < > 29.7* 28.2* MEAN CORPUSCULAR VOLUME 104.0* < > 96.1 97.2 PLATELETS 46* < > 270 269 SODIUM 142 < > 139 -- POTASSIUM 4.4 < > 4.5 -- CHLORIDE 113* < > 103 -- CO2 22 < > 28* -- BUN 49* < > 40* -- CREATININE 2.08* < > 1.7* -- GLUCOSE 212* < > 214 -- PHOSPHORUS 5.0* < > 5.3* -- ALBUMIN 2.2* 2.2* < > 3.3 -- CALCIUM 8.1* < > 8.8 -- AST 179* < > 17 -- ALT 376* < > 21 -- BILIRUBIN TOTAL 1.0 < > 0.5 -- ALK PHOS 53 < > 116 -- INR 1.3* -- -- -- < > = values in this interval not displayed. Lab name 10/22/17 0641 10/23/17 0613 10/31/17 1041 11/02/17 1049 TACROLIMUS BLOOD 7.0 3.9* -- -- Assessment/Plan: A 42 y.o. 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 He is doing well. He received a HBV ALEXANDRA positive organ. He had an altered mental status post op and was switched from FK to CSA. Plan: - Immune suppression: most recent CSA is ok. Continue CSA 150 mg BID and Cellcept 500 mg BID. - HBV: patient received HepB ALEXANDRA pos organ and will continue on entecavir for life. - ID prophylaxis/surveillance: patient continue on pentamadine until 04/07. He needs to be on valcyte for 6 months. Will restart 900mg daily. Patient received [facility] high risk donor and is due for surveillance labs POD 90. - Diabetes: management per endocrine WORKFORCE MANAGER. - HTN: on coreg and nifedipine. - Nutrition: patient continues close f/u w/ transplant doctor of pharmacy. - Bone health: Vit D level to be drawn ~POD#90. - Labs: Labs (CBC w/ diff, renal panel, liver panel, tacro level) every other week. Lipid panel, HgbA1C and Vit D level to be drawn at POD#90, HgbA1C and Vit D level to be drawn at POD#180. - Follow up: RTC 1 month. Can return to work. AMI MENDENHALL MD, [facility] phlebotomy coordinator Chief, Section of Transplantation [facility] 12/05/2017 10:59 AM * Maile Jean Baptiste RN - 12/05/2017 10:15 AM EDT After visit summary including patient instructions reviewed with patient and patient's . Medication list reviewed and updated. Checked with patient to see if prescription refills and/or lab orders were needed. Updated preferred pharmacy and preferred lab information in patient demographics. Care coordinated with other team members and other medical providers as needed. Patient presents with the following needs: - Coordinate next pentamidine treatment with next Liver Txp f/u documented in this encounter Plan of Treatment Upcoming Encounters Date Type Department Care Team (Late st Contact Info) Description 07/15/2024 9:00 AM EST Hospital Encounter [facility] Interventional Radiology [address] [facility] [address] Herve Carrillo MD [address] Surgery [place] [address] documented as of this encounter Visit Diagnoses Diagnosis Immunosuppression (CMS-HCC)- Primary documented in this encounter Additional Health Concerns Assessment Noted Time PHQ-9 Depression Total Score: 0 12/06/19 18 3:00 PM EDT documented as of this encounter Care Teams Lithographed Plate Inspector Relationship Specialty Start Date End Date Edgar Fournier MD [address] [place] [address] PCP - General 08/18/17 06/23/21 Maile Valles, RN Txp Post Coordinator Transplant Hepatology 11/07/17 documented as of this encounter
--- OUTSIDE RECORDS SUMMARY | 2024-07-12 12:54 | XMS_ITS | Encounter Summary ---
Author Organization Health Address [facility] [place] [address] Care Team Providers Care Network Control Operators Supervisor Name Role Phone Edgar Fournier MD Primary Care Provider [phone] Jazmín Valles RN Unavailable Unavail able Source Comments [...] release of HIV test results or diagnoses. [id number] Health Encounter Details Date Type Department Care Team (Late st Contact Info) Description 11/16/2017 Telephone [facility] Liver Transplant at Outpatient [address] [phone] Jazmín Valles, RN Social History Tobacco Use Types [...] Notes * Jazmín Jean Baptiste RN - 11/16/2017 2:24 PM EDTAddended by: JAZMÍN JEAN BAPTISTE on: 11/16/2017 02:24 PM Modules accepted: Orders documented in this encounter Miscellaneous Notes * Telephone Encounter - Jazmín Jean Baptiste RN - 11/17/2017 9:43 AM EDT Patient called. Continues to c/o foot pain. He stated that he is going to go to his PCP for recommendations. He will let Liver Txp know if any medications are prescribed or if PCP refers him to a specialist. * Telephone Encounter - Jazmín Jean Baptiste RN - 11/16/2017 2:20 PM EDT D/w Gina Caballero, Endocrine DIPLOMA MAKER and Dr. Gallagher: - Unlikely from NPH - Likely foot pain related to diabetic neuropathy; gabapentin dose increased on 11/14 - Will check serum uric acid level with next labs to r/o gout - No additional recommendations at this time * Telephone Encounter - Jazmín Jean Baptiste RN - 11/16/2017 11:39 AM EDT Patient called c/o of increased foot pain. He was seen at OSH ED on 11/13 and received IV mag. He wasseen in Liver Txp clinic on 11/14 and was given a prescription for PO mag. Patient is associating the foot pain with NPH. He states that the pain is worse 15-20 minutes afterthe injection. He stressed that this never occurred with the basaglar insulin. Patient also stated that he had some tizanidine from another provider, took that, but found no relief. He's curious if another muscle relaxer may help. He states that the foot pain is debilitating and holding him back from doing what he wants. Will forward to Endocrine DIPLOMA MAKER and Txp Provider. documented in this encounter Plan of Treatment Upcoming Encounters Date Type Department Care Team (Late st Contact Info) Description 07/15/2024 9:00 AM EST Hospital Encounter [facility] Interventional Radiology [address] [place] [phone] Herve Carrillo MD [address] [facility] [address] [place] [address] documented as of this encounter Results * Uric acid (11/23/2017 9:57 AM EDT) Uric Acid 7.0 3.8 - 8.7 mg/dL 11/23/2017 12:10 PM EDT [facility] Plasma specimen (specimen) 11/23/2017 9:57 AM EDT 11/23/2017 11:31 AM EDT us Chetan Gallagher MD LAB BLOOD ORDERABLES Final Resu lt [facility] [address] documented in this encounter Visit Diagnoses Diagnosis Pain in both feet- Primary documented in this encounter Additional Health Concerns Assessment Noted Time PHQ-9 Depression Total Score: 2 11/01/19 18 3:00 PM EDT documented as of this encounter Care Teams Network Control Operators Supervisor Relationship Specialty Start Date End Date [place] [address] PCP - General 08/18/17 06/23/21 Jazmín Valles, JANA Txp Post Coordinator Transplant Hepatology 11/07/17 documented as of this encounter
--- OUTSIDE RECORDS SUMMARY | 2024-07-12 12:54 | XMS_ITS | Encounter Summary ---
Author Organization [facility] Address [facility] [place] [address] Care Team Providers Care Production Scheduler Name Role Phone Edgar Fournier MD Primary Care Provider [phone] Maile Valles RN Unavailable Unavail able Source [...] release of HIV test results or diagnoses. [id number] Health Reason for Visit * Reason Comments Liver Transplant Follow-up Encounter Details Date Type Department Care Team (Latest Contact Info) Description 11/14/2017 10:15 AM EDT Office Visit [facility] Liver Transplant at Outpatient [address] [address] Micha Diaz MD Safdar, Kamran, MD Immunosuppression (CMS-HCC) (Primary Dx); Encounter for therapeutic drug level monitoring; Liver transplant recipient (CMS-HCC); Low magnesium level Social History Tobacco Use Types Packs/Day Years [...] Sign Reading Time Taken Comments Blood Pressure 146/88 11/14/2017 7:00 AM EDT Pulse 86 11/14/2017 7:00 AM EDT Temperature 36.7 ??C (98.1 ??F) 11/14/2017 7:00 AM ED T Respiratory Rate 18 11/14/2017 7:00 AM EDT Oxygen Saturation 100% 11/14/2017 7:00 AM EDT Inhaled Oxygen Concentration 100% 11/14/2017 7 :00 AM EDT Weight 109.3 kg (241 lb) 11/14/2017 7:00 AM EDT Height 170.2 cm (5' 7 ) 11/14/2017 7:00 AM EDT Body Mass Index 37.75 11/14/2017 7:00 AM EDT documented in this encounter Patient Instructions * Patient Instructions* Chetan Gallagher MD - 11/14/2017 10:15 AM EDT - No change in the doses of cyclosporine 175 mg twice day and Cellcept 500 mg twice a day - Decrease the dose of prednisone 5 mg/day - D'c bactrim - Pentamidine inhalation therapy once a deepthi, starting next week - Increase the dose of gabapentin 900 mg three times day - Magnesium oxide 400 mg po twice a day - Labs every week - Follow up: 1 week - Use SPF 30 or higher sunscreen, hat and sunglasses while outside. Yearly dermatology exam for routine check up or sooner if any changes in skin. - Please keep your age appropriate cancer screening (colonoscopy, prostate exam, pelvic and pap, mammography etc.) up to date. documented in this encounter Progress Notes * Connie Hand MA - 11/14/2017 10:15 AM EDT Review of Systems Constitutional: Positive for malaise/fatigue. HENT: Negative. Eyes: Negative. Respiratory: Negative. Cardiovascular: Negative. Gastrointestinal: Positive for abdominal pain and nausea. Genitourinary: Negative. Musculoskeletal: Positive for back pain. Skin: Negative. Neurological: Positive for tingling. Endo/Heme/Allergies: Negative. Psychiatric/Behavioral: Negative. * Chetan Gallagher MD - 11/14/2017 10:15 AM EDT Transplant Hepatology Follow Up HPI: Aiden Stauffer is a 42 y.o. 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 He received a [facility] high risk donor, who was HBV [...] and CT chest was was relatively unremarkable. ?? Immunosuppression was standard. Liver tests are normal on prednisone 10 mg daily, cyclosporine 175 mg twice daily (due to neurologic toxicity from tacrolimus) and cellcept 500 mg twice daily. Antimicrobial prophylaxis includes bactrim (stop date 04/07/18) and valcyte (stop date 04/07/18). . ?? UPDATE 11/14/17: The patient presents today with his . Mentions that his LE was getting worse to the pont that he has to go to local ER where found to have a low Magnesium level, given IV magnesiumsupplement. Also noted to have hyperkalemia and given insulin and kaexylate. Wondering if his dose of prednisone was lowered down today. ROS: 10 out of 14 point review of systems was done, see scanned sheet. Past Medical History: Past Medical History: Diagnosis Date ??? Acute pancreatitis ??? Ascites ??? Diabetes mellitus (CMS Dx) ??? Esophageal varices with bleeding (CMS Dx) ??? GERD (gastroesophageal reflux disease) ??? Hepatic encephalopathy (CMS Dx) ??? Hypertension ??? 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 Vitamin D deficiency Allergies: Allergies Allergen Reactions ??? Dilaudid [Hydromorphone] Other (See Comments) Hallucinations ??? Codeine Other (See Comments) Becomes hyper Medications: Current Outpatient Prescriptions Medication Sig ??? aspirin Chew 1 tablet (81 mg total) by mouth daily with breakfast. ??? blood sugar diagnostic Use to test blood sugar up to 4 times a day. Diagnosis for use: E 9.65. For use with One Touch Verio meters. ??? blood-glucose meter Use as instructed. ??? carvedilol Take 2 tablets (50 mg total) by mouth 2 times a day with meals. (Patient taking differently: Take 25 mg by mouth 2 times a day with meals. ) ??? cycloSPORINE modified Take 3 tablets (75 mg) daily in addition to 100 mg tablets twice daily (total 175 mg twice daily) Indications: Prevention of Liver Transplant Rejection ??? entecavir Take 1 tablet (1 mg total) by mouth daily. ??? ergocalciferol Take 1 capsule (50,000 Units total) by mouth once a week. ??? esomeprazole Take 1 capsule (40 mg total) by mouth every morning before breakfast. ??? gabapentin Take 600 mg by mouth 3 times a day. ??? insulin lispro Administer insulin with meals per sliding scale: glucose 150- 199=2 u, 200-249=4 u, 250-299=7 u, 300-349=10 u, >349= 12 units ??? insulin NPH isoph U-100 human Inject subcutaneously 50 units in the AM and 17 units in the PM. ??? lancets Use 1 strip as directed 4 times daily before meals and at bedtime. ??? melatonin Take 2 tablets (6 mg total) by mouth at bedtime. ??? mycophenolate Take 2 capsules (500 mg total) by mouth 2 times a day. ??? NIFEdipine Take 1 tablet (60 mg total) by mouth daily. ??? oxyCODONE Take 1-2 tablets (5-10 mg total) by mouth every 6 hours as needed for up to 56 days. ??? pen needle, diabetic Use as directed to inject insulin 4 times daily. ??? pen needle, diabetic For use with insulin pen. Use as instructed. ??? predniSONE Take 2 tablets by mouth daily. Indications: Prevention of Liver Transplant Rejection ??? sulfamethoxazole-trimethoprim Take 1 tablet by mouth daily. ??? tiZANidine Take 4 mg by mouth at bedtime as needed for Muscle spasms. ??? valGANciclovir Take 2 tablets (900 mg total) by mouth daily. ??? traMADol Take 1 tablet (50 mg total) by mouth every 6 hours as needed for Pain for up to 30 days. No current facility-administered medications for this visit. Physical Examination: Vitals: 11/14/17 0700 BP: 146/88 BP Location: Right arm Patient Position: Sitting Pulse: 86 Resp: 18 Temp: 98.1 ??F (36.7 ??C) TempSrc: Oral SpO2: 100% Weight: (!) 241 lb (109.3 kg) Height: 5' 7 (1.702 m) General: in NAD HENT:Pupils b/l reactive to light, sclera anicteric, moist mucous membranes Neck:Supple, no lymphadenopathy Pulmonary:Good air entry b/l, lungs b/l clear to auscultation, Cardiac:RRR, S1 and S2 normal Abdomen:Soft, ND, NT, well healed surgical scar, active bowel sounds, no hernia Neuro: Awake, alert, oriented x 3, no tremors Extremities: No LE edema Skin: No rash or jaundice Labs: Lab name 10/10/17 1253 11/14/17 0950 HEMOGLOBIN 8.8* < > 10.2* HEMATOCRIT 25.5* < > 31.2* MEAN CORPUSCULAR VOLUME 104.0* < > 98.4 PLATELETS 46* < > 368 SODIUM 142 < > 144 POTASSIUM 4.4 < > 4.5 CHLORIDE 113* < > 104 CO2 22 < > 30 BUN 49* < > 44* CREATININE 2.08* < > 1.65* GLUCOSE 212* < > 80 PHOSPHORUS 5.0* < > 5.3* ALBUMIN 2.2* 2.2* < > 3.9 3.9 CALCIUM 8.1* < > 9.6 AST 179* < > 15 ALT 376* < > 13 BILIRUBIN TOTAL 1.0 < > 0.8 ALK PHOS 53 < > 98 INR 1.3* -- -- < > = values in this interval not displayed. Lab name 10/22/17 0641 10/23/17 0613 10/31/17 1041 11/02/17 1049 TACROLIMUS BLOOD 7.0 3.9* -- -- Radiology: Assessment and Plan: 42 y.o. 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 He received a [facility] high risk donor, who was HBV ALEXANDRA +, HCV Ab+, ALEXANDRA negative and therefore will be on lifelong entecavir. Post-operative course was complicated by altered mental status and severe tremors thought to be related to tacrolimus toxicity, as well as hypoxia secondary to HPS, volume overload and atelectasis. Liver tests are normalon prednisone 10 mg daily, cyclosporine 175 mg twice daily (due to neurologic toxicity from tacrolimus) and cellcept 500 mg twice daily. Antimicrobial prophylaxis includes bactrim (stop date 04/07/18)and valcyte (stop date 04/07/18). Cr 1.6. - Graft function: LFTs stable on the current ISP regimen - Immune suppression: No change in the doses of cyclosporin 175 mg po bid, Cellcept 500 mg po bid. Will lower prednisone to 5 mg/day - ID: Will discontinue bactrim due to hyperkalemia, will start him on Pentamidine inhalation once amonth, starting next week, stop date 04/07/18. Continue with the current doses of valcyte til 8212/29 - HTN: Continue with nifedipine and Coreg - Increase the dose of gabapentin 900 mg three times day for lower extremity neuropathy - Magnesium oxide 400 mg po twice a day due to low Mg levels noted on yesterday's lab work at OSH - DM : Management per diabetic RN - Labs every week - Follow up: 1 week * Maile Jean Baptiste RN - 11/14/2017 10:15 AM EDT After visit summary including patient instructions reviewed with patient and patient's . Medication list reviewed and updated. Checked with patient to see if prescription refills and/or lab orders were needed. Updated preferred pharmacy and preferred lab information in patient demographics. Care coordinated with other team members and other medical providers as needed. Patient presents with the following needs: - Coordinator to order albuterol and pentamidine - Txp MA to schedule pentamidine treatment for 11/20 * Jennifer Cruz, PharmD - 11/14/2017 10:15 AM EDT Transplant Pharmacist Assessment and Recommendations: Current Outpatient Prescriptions on File Prior to [...] meters. 150 strip 5 ??? blood-glucose meter (Axeda VERIO SYSTEM) Misc Use as instructed. 1 each 0 ??? carvedilol (COREG) 25 MG tablet Take 2 tablets (50 mg total) by mouth 2 times a day with meals.(Patient taking differently: Take 25 mg by mouth 2 times a day with meals. ) 120 tablet 5 ??? entecavir (BARACLUDE) 1 MG tablet [...] the PM. 15 mL 5 ??? lancets (FreeDriveTOUCH DELICA LANCETS) 33 gauge Misc Use 1 [...] Liver Transplant Rejection 120 tablet 5 ??? tiZANidine (ZANAFLEX) 4 MG capsule Take 4 mg by mouth at bedtime as needed for Muscle spasms. ??? valGANciclovir (VALCYTE) 450 mg tablet Take 2 tablets (900 mg total) by mouth daily. 60 tablet 2 No current facility-administered medications on file prior to visit. Immunosuppression: THYMO BRIDGE Perioperative immunosuppression regimen included: steroid taper, MMF, tacrolimus and Thymoglobulin (175mg x 1 dose on 10/09/17) ?? Currently on cyclosporine 175 mg bid??(decreased 11/07), mycophenolate 500mg bid, and prednisone 10 mg daily (for blood sugars will taper every week). ?? Reason for CsA use: switched on 10/23 due to significant tremors Reports tremors improved significantly with cyclosporine. Administers medications at: 9AM, 3PM and 9PM. ??Immunosuppression at 9AM and 9PM. Goal CSA level per protocol is 100-150 ng/mL. Latest cyclosporine level: Cyclosporine, Blood Date Value Ref Range Status 11/14/2017 181 100 - 400 ng/mL Final Comment: Detection limit: 30 ng/mL. Performed via chemiluminescent microparticle immunoassay on the [employer] i1000. Rejection in the past 12 months: none Prophylaxis: Viral (Valcyte 900mg daily): 6??months??per protocol (D+/R-). ??Discontinue: 04/07/18 PCP (Bactrim): 6??months per protocol. ??Discontinue: 04/07/18. Note that patient went to the ED yesterday at OSH, K+ of 5.6, treated medically. Anti-HBcAb +/ALEXANDRA + donor: No HBIG given since HepB surface antibody 171. On entecavir 1 mg daily for life. Blood Sugars: YES diabetic prior to transplant On bolus and correction insulin. Plan to taper steroids weekly, next decrease today.?? Defer to endocrine for management. Blood pressure: on therapy (amlodipine, carvediol) BP at home has been WNL. 148/88 in clinic. Recommend continue current therapy Leg/feet cramping: While ED patient yesterday also received IV therapy for hypomagnesemia (1.4). Mag 1.8 today On gabapentin 600 mg TID (from prior to transplant). Adherence: Patient reports missing 0 doses in the past 7 days The following barriers to adherence have been identified: None It is my assessment that the patient demonstrates good adherence and medication understanding Recommendations: 1. Bactrim: discontinue given hyperkalemia. Schedule pentamidine with clinic visit next week. 2. Gabapentin: increase dose to 900 mg TID 3. Magnesium: initiate supplement with magOx 400 mg BID. Counseled patient on GI side effects. documented in this encounter Plan of Treatment Upcoming Encounters Date Type Department Care Team (Late st Contact Info) Description 07/15/2024 9:00 AM EST Hospital Encounter [facility] Interventional Radiology [address] [place] [phone] Herve Carrillo MD [address] [facility] [place] [address] documented as of this encounter Visit Diagnoses Diagnosis Immunosuppression (CMS-HCC)- Primary Encounter for therapeutic drug level monitoring Liver transplant recipient (CMS-HCC) Low magnesium level documented in this encounter Additional Health Concerns Assessment Noted Time PHQ-9 Depression Total Score: 2 11/01/19 18 3:00 PM EDT documented as of this encounter Care Teams Production Scheduler Relationship Specialty Start Date End Date Edgar Fournier MD [address] [place] [address] PCP - General 08/18/17 06/23/21 Maile Valles, RN Txp Post Coordinator Transplant Hepatology 11/07/17 documented as of this encounter
--- OUTSIDE RECORDS SUMMARY | 2024-07-12 12:54 | XMS_ITS | Encounter Summary ---
Author Organization Health Address [facility] [place] [address] Care Team Providers Care Loadmaster Name Role Phone Edgar Fournier MD Primary Care Provider [phone] Maile Valles RN Unavailable Unavail able Jack Ordoñez MD Unavailable [phone] Source Comments This information has been [...] release of HIV test results or diagnoses. [id number] Health Encounter Details Date Type Department Care Team (Late st Contact Info) Description 11/27/2017 Chart Note [facility] [phone] Latrice Brice MA Social History Tobacco Use [...] [facility] Inter[facility] Radiology [address] [place] [phone] Herve Carrillo MD [address] [place] [address] documented as of this encounter Procedures Procedure Name Priority Date/Time Associated Diagnosis Comments HEPATIC FUNCTION PANEL Routine 11/27/2017 9:45 AM EDT CBC AND DIFFERENTIAL Routine 11/27/2017 9:45 AM EDT MAGNESIUM Routine 11/27/2017 9:45 AM EDT RENAL FUNCTION PANEL W/O EGFR Routine 11/27/2017 9:45 AM EDT documented in this encounter Results * (ABNORMAL) Magnesium (11/27/2017 9:45 AM EDT) Magnesium 1.5(A) 1.6 - 2.4 mg/dL EXTERNAL Plasma specimen (specimen) us Historical Provider LAB BLOOD ORDERABLES Yoselin l Result EXTERNAL * (ABNORMAL) Renal Function Panel w/o EGFR (11/27/2017 9:45 AM EDT) Glucose 214 mg/dL EXTERNAL BUN 40(A) 4 - 21 mg/dL EXTERNAL CO2 28(A) 13 - 22 mmol/L EXTERNAL Creatinine 1.7(A) 0.6 - 1.3 mg/dL EXTERNAL Potassium 4.5 3.4 - 5.3 mmol/L EXTERNAL Sodium 139 137 - 147 mmol/L EXTERNAL Chloride 103 99 - 108 mmol/L EXTERNAL Albumin 3.3 EXTERNAL Phosphorus 5.3(A) 2.5 - 4.9 mg/dL EXTERNAL Calcium 8.8 8.7 - 10.7 mg/dL EXTERNAL EGFR 47 mg/dL EXTERNAL Blood specimen (specimen) Result [facility] Historical Provider LAB BLOOD ORDERABLES Yoselin robles Result Performing Organization Address City/[facility] Co de Phone Number EXTERNAL * (ABNORMAL) CBC and differential (11/27/2017 9:45 AM EDT) Hemoglobin 9.5(A) 13.5 - 17.5 g/dL EXTERNAL Hematocrit 29.7(A) 41 - 53 % EXTERNAL RDW 15.8(A) 11.5 - 14.5 % EXTERNAL Lymphocytes Absolute 0.4 /??L EXTERNAL Monocytes Absolute 0.4 /??L EXTERNAL Eosinophils Absolute 0.1 /??L EXTERNAL Basophils Absolute 0 /??L EXTERNAL Neutrophils Relative 77 46 - 78 % EXTERNAL Lymphocytes Relative 8(A) 18 - 52 % EXTERNAL Monocytes Relative 10 3 - 10 % EXTERNAL Eosinophils Relative 2 0 - 6 % EXTERNAL Basophils Relative 0 0 - 3 % EXTERNAL Neutrophils Absolute 3.4 /??L EXTERNAL MCH 30.7 26.0 - 34.0 pg EXTERNAL MCHC 32 30 - 37 g/dL EXTERNAL MCV 96.1 82.0 - 108.0 fL EXTERNAL Platelets 270 K/??L EXTERNAL RBC 3.09(A) 4.50 - 5.90 10^6/??L EXTERNAL WBC 4.4 10^3/mL EXTERNAL Blood specimen (specimen) Historical Provider LAB BLOOD ORDERABLES Yoselin robles Result Performing Organization Address City/[facility]/ZIP Co de Phone Number EXTERNAL * Hepatic Function Panel (11/27/2017 9:45 AM EDT) Alkaline Phosphatase 116 U/L EXTERNAL ALT 21 U/L EXTERNAL AST 17 U/L EXTERNAL Total Bilirubin 0.5 0.1 - 1.4 mg/dL EXTERNAL Bilirubin, Direct 0.2 0.01 - 0.4 mg/dL EXTERNAL Total Protein 6.7 6.4 - 8.2 g/dL EXTERNAL Plasma specimen (specimen) us Historical Provider LAB BLOOD ORDERABLES Yoselin margaret Result EXTERNAL documented in this encounter Visit Diagnoses Not on filedocumented in this encounter Additional Health Concerns Assessment Noted Time PHQ-9 Depression Total Score: 2 11/01/19 18 3:00 PM EDT documented as of this encounter Care Teams Loadmaster Relationship Specialty Start Date End Date Edgar Fournier MD [address] [place] [address] [place] [address] PCP - General 08/18/17 06/23/21 Maile Valles, RN Txp Post Coordinator Transplant Hepatology 11/07/17 Jack Ordoñez MD [address] [place] [phone] Consulting Physician Transplant Hepatology 01/05/18 documented as of this encounter
--- OUTSIDE RECORDS SUMMARY | 2024-07-12 12:54 | XMS_ITS | Encounter Summary ---
Author Organization Health Address [facility] [place] [address] Care Team Providers Care Home Extension Agent Name Role Phone Edgar Fournier MD Primary Care Provider [phone] Maile Valles RN Unavailable Unavail able Source [...] release of HIV test results or diagnoses. [id number] Health Encounter Details Date Type Department Care Team (Late st Contact Info) Description 11/20/2017 Orders Only [facility] Liver Transplant at Outpatient [address] [phone] Maile Valles, RN Social History Tobacco Use [...] [facility] Interventional Radiology [address] [place] [phone] Herve Carrillo MD [address] [facility] [place] [phone] documented as of this encounter Visit Diagnoses Not on filedocumented in this encounter Additional Health Concerns Assessment Noted Time PHQ-9 Depression Total Score: 2 11/01/19 18 3:00 PM EDT documented as of this encounter Care Teams Home Extension Agent Relationship Specialty Start Date End Date Edgar Fournier MD [address] [place] [address] [place] [phone] PCP - General 08/18/17 06/23/21 Maile Valles, JANA Txp Post Coordinator Transplant Hepatology 11/07/17 documented as of this encounter
--- OUTSIDE RECORDS SUMMARY | 2024-07-12 12:54 | XMS_ITS | Encounter Summary ---
Author Organization Health Address [facility] [place] [address] Care Team Providers Care Preforming Machine Operator Name Role Phone Edgar Fournier MD Primary Care Provider [phone] Maile Valles RN Unavailable Unavail able Source [...] release of HIV test results or diagnoses. [id number] Health Encounter Details Date Type Department Care Team (Late st Contact Info) Description 12/06/2017 Telephone [facility] Liver Transplant at Outpatient [address] [phone] Latrice Brice MA Social History Tobacco Use [...] Encounter - Maile Jean Baptiste RN - 12/06/2017 3:48 PM EDT Patient prescribed azithromycin from PCP. * Telephone Encounter - Latrice Brice MA - 12/06/2017 9:21 AM EDT This MA spoke with Aiden regarding his symptoms and confirmed he was able to keep medications down this morning. Aiden is going to follow up with PCP * Telephone Encounter - Latrice Brice MA - 12/06/2017 8:11 AM EDT Aiden called stating he believes he has a head cold but not sure he spoke with his coordinator JANA Gr yesterday whom advised him to keep a close watch on his tempeture and call transplant before taking medication to inform team if he has a fever and how he is feeling. Aiden states he has a fever of 100.5 and an upset stomach nausea when he lays or sits he is freezing. Aiden denies any vomiting or diarrhea. Will route message to revenue coordinator JANA Gr and JANA Coles to please advise documented in this encounter Plan of Treatment Upcoming Encounters Date Type Department Care Team (Late st Contact Info) Description 07/15/2024 9:00 AM EST Hospital Encounter [facility] Interventional Radiology [address] [place] [phone] Herve Carrillo MD [address] [facility] [address] [facility] [place] [address] documented as of this encounter Visit Diagnoses Not on filedocumented in this encounter Additional Health Concerns Assessment Noted Time PHQ-9 Depression Total Score: 0 12/06/19 18 3:00 PM EDT documented as of this encounter Care Teams Preforming Machine Operator Relationship Specialty Start Date End Date Edgar Fournier MD [address] [place] [address] PCP - General 08/18/17 06/23/21 Maile Valles, RN Txp Post Coordinator Transplant Hepatology 11/07/17 documented as of this encounter
--- OUTSIDE RECORDS SUMMARY | 2024-07-12 12:54 | XMS_ITS | Encounter Summary ---
Author Organization Health Address [address] [place] [address] Care Team Providers Care Secure Software Assessor Name Role Phone Edgar Fournier MD Primary Care Provider [phone] Maile Valles RN Unavailable Unavail able Source [...] release of HIV test results or diagnoses. [id number] Health Reason for Visit * Reason Onset Date Comments Medication Refill 12/04/2017 Encounter Details Date Type Department Care Team (Late st Contact Info) Description 12/04/[address] [facility] Liver Transplant at Outpatient [address] [phone] Maile Valles, JANA Neuropathy (Primary Dx) Social History Tobacco Use Types [...] Encounter [facility] Interventional Radiology [address] [place] [address] Herve [facility]illo MD [address] [facility] [address] [place] [address] documented as of this encounter Visit Diagnoses Diagnosis Neuropathy- Primary Mononeuritis of unspecified site documented in this encounter Additional Health Concerns Assessment Noted Time PHQ-9 Depression Total Score: 2 11/01/19 18 3:00 PM EDT documented as of this encounter Care Teams Secure Software Assessor Relationship Specialty Start Date End Date Edgar Fournier MD [address] [place] [address] [place] [address] PCP - General 08/18/17 06/23/21 Maile Valles, JANA Txp Post Coordinator Transplant Hepatology 11/07/17 documented as of this encounter
--- OUTSIDE RECORDS SUMMARY | 2024-07-12 12:54 | XMS_ITS | Encounter Summary ---
Author Organization [facility] Address [address] [place] [address] Care Team Providers Care Social Services Specialist Name Role Phone Edgar Fournier MD Primary Care Provider [phone] Maile Valles RN Unavailable Unavail able Source [...] release of HIV test results or diagnoses. [id number] Health Reason for Visit * Reason Comments Nurse Visit AP treatment Encounter Details Date Type Department Care Team (Latest Contact Info) Description 11/23/2017 10:30 AM EDT Clinical Support [facility] at [facility] [address] [place] [address] Unknown, Attending Provider Eleanor Reed LPN [address] [place] [address] Immunosuppression ([facility] [...] Sign Reading Time Taken Comments Blood Pressure 150/89 11/24/2017 8:28 AM EDT Pulse 88 11/24/2017 8:28 AM EDT Temperature 36.7 ??C (98 ??F) 11/24/2017 8:28 AM EDT Respiratory Rate 16 11/24/2017 8:28 AM EDT Oxygen Saturation 98% 11/24/2017 8:28 AM EDT Inhaled Oxygen Concentration 98% 11/24/2017 8 :28 AM EDT Weight - - Height - - Body Mass Index - - documented in this encounter Progress Notes * Eleanor Reed LPN - 11/23/2017 10:30 AM EDT Pt here for AP treatment Instructed on process of AP treatment Pt verbalized understanding BP noted a little high ... Pt stated prior to taking bp.. He had not taken his medications yet nebupent mixed with 6 ml of sterile water Lot # [id number] [facility]# [id number] Exp 03/2019 Pt tolerated treatment well Will follow up with transplant team documented in this encounter Plan of Treatment Upcoming Encounters Date Type Department Care Team (Late st Contact Info) Description 07/15/2024 9:00 AM EST Hospital Encounter [facility] Interventional Radiology [address] [place] [phone] Herve Carrillo MD [address] [facility] [address] Surgery [place] [phone] documented as of this encounter Visit Diagnoses Diagnosis Immunosuppression (CMS-HCC) documented in this encounter Additional Health Concerns Assessment Noted Time PHQ-9 Depression Total Score: 2 11/01/19 18 3:00 PM EDT documented as of this encounter Care Teams Social Services Specialist Relationship Specialty Start Date End Date Edgar Fournier MD [address] [place] [address] PCP - General 08/18/17 06/23/21 Maile Valles, RN Txp Post Coordinator Transplant Hepatology 11/07/17 documented as of this encounter
--- OUTSIDE RECORDS SUMMARY | 2024-07-12 12:54 | XMS_ITS | Encounter Summary ---
Author Organization Health Address [facility] [place] [address] Care Team Providers Care Principal Military Analyst Name Role Phone Edgar Fournier MD Primary Care Provider [phone] Maile Valles RN Unavailable Unavail able Jack Ordoñez MD Unavailable [phone] Source Comments This information has been [...] release of HIV test results or diagnoses. [id number] Health Encounter Details Date Type Department Care Team (Late st Contact Info) Description 11/30/2017 Telephone [facility] Liver Transplant at Outpatient [address] [address] Latrice Brice MA Social History [...] Telephone Encounter - Latrice Brice MA - 11/30/2017 9:39 AM EDT This [facility] level. Tech stated it went to [facility] and should result at some point today but could not give me a time. This MA also needs to get pending CMV documented in this encounter Plan of Treatment Upcoming Encounters Date Type Department Care Team (Late st Contact Info) Description 07/15/2024 9:00 AM EST Hospital Encounter [facility] Interventional Radiology [address] [place] [phone] Herve Carrillo MD [address] [facility] [address] [place] [phone] documented as of this encounter Visit Diagnoses Not on filedocumented in this encounter Additional Health Concerns Assessment Noted Time PHQ-9 Depression Total Score: 2 11/01/19 18 3:00 PM EDT documented as of this encounter Care Teams Principal Military Analyst Relationship Specialty Start Date End Date Edgar Fournier MD [address] [place] [address] [place] [address] PCP - General 08/18/17 06/23/21 Maile Valles, JANA Txp Post Coordinator Transplant Hepatology 11/07/17 Jack Ordoñez MD [address] [place] [phone] Consulting Physician Transplant Hepatology 01/05/18 documented as of this encounter
--- OUTSIDE RECORDS SUMMARY | 2024-07-12 12:55 | XMS_ITS | Encounter Summary ---
Author Organization Health Address [address] [place] [address] Care Team Providers Care Validation Intern Name Role Phone Edgar Fournier MD Primary Care Provider [phone] Source Comments This information has been disclosed [...] release of HIV test results or diagnoses. [id number] Health Encounter Details Date Type Department Care Team (Late st Contact Info) Description 10/31/2017 Nutrition [facility] Liver Transplant at Outpatient [address] [address] Social History Tobacco Use [...] Progress Notes * Madelyn Kwok RD - 10/31/2017 12:59 PM EDT Follow Up Liver Transplant Nutrition Assessment Met with Aiden Stauffer and family to review basic diet principles and follow-up on nutrition parameters. Pertinent Information: Pt is /sp OLT POD#23. Pt states he is doing well with good appetite and PO intake and reports consumption of 3 meals/day + snacks. Pt still with + ascites and +edema. Pt noted with elevated blood sugar levels. Pt and family with little knowledge regarding diabetic diet. Provided in depth education and handouts to pt and family regarding diabetic diet and the importance of compliance. Provided tips and suggestions to improve current food choices. Reviewed low sodium and high protein diet and encouraged compliance. Pt and family verbalized understanding. Current Outpatient Prescriptions on File Prior to Visit Medication Sig Dispense Refill ??? amLODIPine (NORVASC) 10 MG tablet Take 1 tablet (10 mg total) by mouth daily. 30 tablet 6 ??? aspirin 81 MG chewable tablet Chew 1 tablet (81 mg total) by mouth daily with breakfast. 30 tablet 5 ??? blood sugar diagnostic Strp Use to test blood sugar up to 4 times a day. Diagnosis for use: E 9.65. For use with One Touch Verio meters. 150 strip 5 ??? blood-glucose meter (ONETOUCH VERIO SYSTEM) [employer] Use as instructed. 1 each 0 ??? [...] times a day. 480 capsule 5 ??? entecavir (BARACLUDE) 1 MG tablet Take 1 tablet (1 mg total) by mouth daily. 30 tablet 11 ??? ergocalciferol (ERGOCALCIFEROL) 50,000 unit capsule Take 1 capsule (50,000 Units total) by mouth once a week. 4 capsule 5 ??? esomeprazole (NEXIUM) 40 MG capsule Take 1 capsule (40 mg total) by mouth every morning before breakfast. 30 capsule 5 ??? furosemide (LASIX) 40 MG tablet Take 1 tablet (40 mg total) by mouth daily for 14 days. 14 tablet 0 ??? gabapentin (NEURONTIN) 600 MG tablet Take [...] the PM. 15 mL 5 ??? lancets (Proxeon LANCETS) 33 gauge Misc Use 1 strip as directed 4 times daily before meals and at bedtime. 150 each 5 ??? melatonin 3 mg Tab Take 2 tablets (6 mg total) by mouth at bedtime. 30 tablet 0 ??? mycophenolate (CELLCEPT) 250 mg capsule Take 2 capsules (500 mg total) by mouth 2 times a day. 120 capsule 11 ??? nystatin (MYCOSTATIN) 100,000 unit/mL suspension Take 5 mLs (500,000 Units total) by mouth 3 times a day. 473 mL 0 ??? oxyCODONE (ROXICODONE) 5 MG immediate [...] by mouth daily. 120 tablet 5 ??? sulfamethoxazole-trimethoprim (BACTRIM,SEPTRA) 400-80 mg per tablet Take 1 tablet by mouth daily. 30 tablet 5 ??? tiZANidine (ZANAFLEX) 4 MG capsule Take 0.5 mg by mouth at bedtime as needed for Muscle spasms. ??? valGANciclovir (VALCYTE) 450 mg tablet Take 2 tablets (900 mg total) by mouth daily. 60 tablet 2 ??? [DISCONTINUED] cloNIDine HCl (CATAPRES) 0.1 MG tablet Take 1 tablet (0.1 mg total) by mouth 2 times a day. 60 tablet 5 ??? [DISCONTINUED] hydrALAZINE (APRESOLINE) 10 MG tablet Take 1 tablet (10 mg total) by mouth every8 hours. 90 tablet 5 No current facility-administered medications on file prior to visit. Labs: Lab Results Component Value Date HGBA1C 5.4 10/09/2017 Lab Results Component Value Date ALT 20 10/30/2017 AST 6 10/30/2017 ALKPHOS 76 10/30/2017 BILITOT 1.1 10/30/2017 Lab Results Component Value Date ALBUMIN 3.2 10/30/2017 Lab Results Component Value Date CREATININE 1.5 (A) 10/30/2017 BUN 8 10/30/2017 NA 139 10/30/2017 K 4.2 10/30/2017 Lab Results Component Value Date MG 1.6 10/30/2017 PHOS 4 10/30/2017 Lab Results Component Value Date LGGS27S 19.4 (L) 10/08/2017 No results found for: FOLATE No results found for: HCJCZCMM04 Anthropometrics: ANTHROPOMETRICS 10/02/2017 10/07/2017 10/10/2017 10/27/2017 10/31/2017 HEIGHT 5' 7 - 5' 7 - 5' 7 WEIGHT 251 lbs - - 282 lbs 3 oz 272 lbs BODY MASS INDEX 39.31 44.2 - - 42.6 Reported ascites / edema / muscle loss Physician recommended diet: Low Sodium, DM and Protein Appetite: Good Current Eating Pattern (typical foods eaten) Breakfast: Oatmeal, milk Lunch: [place] burger, chips, sprite zero Dinner: Chicken noodle soup, crackers Snacks: grapes, bananas Nutrition Diagnosis Food & Nutrition Related Knowledge Deficit Related to limited education regarding diet for low sodium/diabetes As [...] for low-sodium/diabetes/weight reduction Madelyn Kwok RD, LD Pager#[phone] documented in this encounter Plan of Treatment Upcoming Encounters Date Type Department Care Team (Late st Contact Info) Description 07/15/2024 9:00 AM EST Hospital Encounter [facility] Interventional Radiology [address] [place] [phone] Herve Carrillo MD [address] [facility] 3[address] [place] [phone] documented as of this encounter Visit Diagnoses Not on filedocumented in this encounter Additional Health Concerns Assessment Noted Time PHQ-9 Depression Total Score: 2 11/01/19 18 3:00 PM EDT documented as of this encounter Care Teams Validation Intern Relationship Specialty Start Date End Date Edgar Fournier MD [address] [place] [address] [place] [address] PCP - General 08/18/17 06/23/21 documented as of this encounter
--- OUTSIDE RECORDS SUMMARY | 2024-07-12 12:55 | XMS_ITS | Encounter Summary ---
Author Organization Health Address [facility] [place] [address] Care Team Providers Care Steam Room Attendant Name Role Phone Edgar Fournier MD Primary Care Provider [phone] Maile Valles RN Unavailable Unavail able Source [...] release of HIV test results or diagnoses. [id number] Health Encounter Details Date Type Department Care Team (Late st Contact Info) Description 11/03/2017 Orders Only [facility] Liver Transplant at Outpatient [address] [address] Latrice Brice MA Transplanted liver ([facility]-HCC); Drug therapy Social History Tobacco Use Types [...] [facility] Inter[facility] Radiology [address] [place] [phone] Herve Carrillo MD [address] [facility] [address] [place] [phone] documented as of this encounter Visit Diagnoses Diagnosis Transplanted liver (CMS-HCC) Liver replaced by transplant Drug therapy Encounter for other specified aftercare documented in this encounter Additional Health Concerns Assessment Noted Time PHQ-9 Depression Total Score: 2 11/01/19 18 3:00 PM EDT documented as of this encounter Care Teams Steam Room Attendant Relationship Specialty Start Date End Date Edgar Fournier MD [address] [place] [address] PCP - General 08/18/17 06/23/21 Maile Valles, RN Txp Post Coordinator Transplant Hepatology 11/07/17 documented as of this encounter
--- OUTSIDE RECORDS SUMMARY | 2024-07-12 12:55 | XMS_ITS | Encounter Summary ---
Author Organization Health Address [facility] [place] [address] Care Team Providers Care Degreaser Operator Name Role Phone Edgar Fournier MD Primary Care Provider [phone] Maile Valles RN Unavailable Unavail able Source [...] release of HIV test results or diagnoses. [id number] Health Encounter Details Date Type Department Care Team (Late st Contact Info) Description 11/03/2017 Chart Note [facility] Liver Transplant at Outpatient [address] [address] Latrice Brice MA Social History Tobacco Use [...] Encounter [facility] Interventional Radiology [address] [place] [address] Herve Carrillo MD [address] [place] [address] documented as of this encounter Procedures Procedure Name Priority Date/Time Associated Diagnosis Comments HEPATIC FUNCTION PANEL Routine 11/02/2017 10:47 AM EDT CBC AND DIFFERENTIAL Routine 11/02/2017 10:47 AM EDT RENAL FUNCTION PANEL W/O EGFR Routine 11/02/2017 10:47 AM EDT documented in this encounter Results * (ABNORMAL) Renal Function Panel w/o EGFR (11/02/2017 10:47 AM EDT) Glucose 236 mg/dL EXTERNAL BUN 35(A) 4 - 21 mg/dL EXTERNAL CO2 28(A) 13 - 22 mmol/L EXTERNAL Creatinine 1.5(A) 0.6 - 1.3 mg/dL EXTERNAL Potassium 4.6 3.4 - 5.3 mmol/L EXTERNAL Sodium 138 137 - 147 mmol/L EXTERNAL Chloride 98(A) 99 - 108 mmol/L EXTERNAL Albumin 3.5 EXTERNAL Phosphorus 4 2.5 - 4.9 mg/dL EXTERNAL Calcium 8.6(A) 8.7 - 10.7 mg/dL EXTERNAL EGFR 54 mg/dL EXTERNAL Blood specimen (specimen) us Historical Provider LAB BLOOD ORDERABLES Yoselin robles Result EXTERNAL * (ABNORMAL) CBC and differential (11/02/2017 10:47 AM EDT) Hemoglobin 8.1(A) 13.5 - 17.5 g/dL EXTERNAL Hematocrit 26.1(A) 41 - 53 % EXTERNAL RDW 17.4(A) 11.5 - 14.5 % EXTERNAL Lymphocytes Absolute 0.3 /??L EXTERNAL Neutrophils Relative 90(A) 46 - 78 % EXTERNAL Lymphocytes Relative 5(A) 18 - 52 % EXTERNAL Neutrophils Absolute 6.5 /??L EXTERNAL MCH 33.1 26.0 - 34.0 pg EXTERNAL MCHC 32.6 30 - 37 g/dL EXTERNAL MCV 102 82.0 - 108.0 fL EXTERNAL Platelets 496 K/??L EXTERNAL RBC 2.57(A) 4.50 - 5.90 10^6/??L EXTERNAL WBC 7.2 10^3/mL EXTERNAL Blood specimen (specimen) Historical Provider LAB BLOOD ORDERABLES Yoselin l Result Performing Organization Address City/[facility] Co de Phone Number EXTERNAL * Hepatic Function Panel (11/02/2017 10:47 AM EDT) Alkaline Phosphatase 87 U/L EXTERNAL ALT 17 U/L EXTERNAL AST 6 U/L EXTERNAL Total Bilirubin 1.4 0.1 - 1.4 mg/dL EXTERNAL Bilirubin, Direct 0.2 0.01 - 0.4 mg/dL EXTERNAL Plasma specimen (specimen) Historical Provider LAB BLOOD ORDERABLES Yoselin l Result Performing Organization Address City/[facility]/ZIP Co de Phone Number EXTERNAL documented in this encounter Visit Diagnoses Not on filedocumented in this encounter Additional Health Concerns Assessment Noted Time PHQ-9 Depression Total Score: 2 11/01/19 18 3:00 PM EDT documented as of this encounter Care Teams Degreaser Operator Relationship Specialty Start Date End Date Edgar Fournier [place] [address] PCP - General 08/18/17 06/23/21 Maile Valles, RN Txp Post Coordinator Transplant Hepatology 11/07/17 documented as of this encounter
--- OUTSIDE RECORDS SUMMARY | 2024-07-12 12:55 | XMS_ITS | Encounter Summary ---
Author Organization [facility] Address [address] [place] [address] Care Team Providers Care Technical Project Lead Name Role Phone Edgar Fournier MD Primary Care Provider [phone] Source Comments This information has been disclosed [...] release of HIV test results or diagnoses. [id number] Health Encounter Details Date Type Department Care Team (Late st Contact Info) Description 10/31/2017 Social Work [facility] SOCIAL WORK [address] [place] [address] Chiquita Rosado MSW [address] [place] [address] Social History Tobacco Use Types Packs/Day Years [...] encounter Progress Notes * RADHA Kline - 10/31/2017 3:31 PM EDT Social Work Note- Outpatient Liver Transplant Patient is status post liver transplant on 10/08/17. Met with patient, patient's , and patient's mother during post liver transplant clinic. PHQ-9 Scores: PHQ Total Score 08/21/2017 10/31/2017 PHQ-9 Total Score 0 2 GAD7 Scores: [id number] Score 10/31/2017 Total Score 2 Scores are not concerning for depression or anxiety. Patient presents to clinic in a pleasant mood and mentioned multiple times that he is very gratefulto have received transplant. Patient would like to return to work as soon as possible. He is currently withdrawing from social security that he will eventually need to pay back. He has already been offered a position at the local [place] [facility] and is looking forward to being able accept. Explained to patient, that most patients need 8-12 weeks before they can return. When he is able to return he will have health insurance through thejail that will activate after 90 days. Patient plans to obtain the name of insurance company to ensure that this center accepts plan. Patient has some financial strain as he and his make $1306 per month. Have applied for the [facility] to help offset some transportation costs. Will update chart once this worker has received notification of approval or denial. SW to follow. RADHA Kline, CHEMICAL PLANT TECHNICAL DIRECTOR [phone] documented in this encounter Plan of Treatment Upcoming Encounters Date Type Department Care Team (Late st Contact Info) Description 07/15/2024 9:00 AM EST Hospital Encounter [facility] Interventional Radiology [address] [place] [address] Herve Carrillo MD [address] [facility] [address] Surgery [place] [address] documented as of this encounter Visit Diagnoses Not on filedocumented in this encounter Additional Health Concerns Assessment Noted Time PHQ-9 Depression Total Score: 2 11/01/19 3:00 PM EDT documented as of this encounter Care Teams Technical Project Lead Relationship Specialty Start Date End Date Edgar Fournier MD [address] [place] [address] PCP - General 08/18/17 06/23/21 documented as of this encounter
--- OUTSIDE RECORDS SUMMARY | 2024-07-12 12:55 | XMS_ITS | Encounter Summary ---
Author Organization Health Address [facility] [place] [address] Care Team Providers Care Orthopedic Rn Name Role Phone Edgar Fournier MD Primary Care Provider [phone] Source Comments This information has been disclosed [...] release of HIV test results or diagnoses. [id number] Health Encounter Details Date Type Department Care Team (Late st Contact Info) Description 11/03/2017 Telephone [facility] Liver Transplant at Outpatient [address] [phone] Chetan Gallagher MD Social History Tobacco Use [...] Telephone Encounter - Dillon Whitman RN - 11/03/2017 7:49 AM EDT Patient called this on-call coordinator at 2355 on 11/02 for a HS blood sugar of 368 (checked at 2100). Took his 12 units of humalog per sliding scale instructions and his long acting. States his blood sugars have been normal all day until this evening. States that he is avoiding concentrated carbs and following a balanced diet. No other complaints, feels good . Will have repeat in am and call for BS > 349. Routed to his coordinator. documented in this encounter Plan of Treatment Upcoming Encounters Date Type Department Care Team (Late st Contact Info) Description 07/15/2024 9:00 AM [facility] Hospital Encounter [facility] Interventional Radiology [address] [place] [phone] Herve Carrillo MD [address] [facility] [address] Surgery [place] [phone] documented as of this encounter Visit Diagnoses Not on filedocumented in this encounter Additional Health Concerns Assessment Noted Time PHQ-9 Depression Total Score: 2 11/01/19 18 3:00 PM EDT documented as of this encounter Care Teams Orthopedic Rn Relationship Specialty Start Date End Date Edgar Fournier [place] [address] PCP - General 08/18/17 06/23/21 documented as of this encounter
--- OUTSIDE RECORDS SUMMARY | 2024-07-12 12:55 | XMS_ITS | Encounter Summary ---
Author Organization [facility] Address [address] [place] [address] Care Team Providers Care Credit Card Interviewer Name Role Phone Edgar Fournier MD Primary Care Provider [phone] Source Comments This information has been disclosed [...] release of HIV test results or diagnoses. [id number] Health Encounter Details Date Type Department Care Team (Late st Contact Info) Description 10/27/2017 Orders Only [facility] Liver Transplant at Outpatient [address] [address] Latrice Brice MA Transplanted liver (CMS-HCC) (Primary Dx); Drug therapy Social History Tobacco [...] [facility] Interventional Radiology [address] [place] [address] Herve Carrillo MD [address] [place] [address] documented as of this encounter Visit Diagnoses Diagnosis Transplanted liver (CMS-HCC)- Primary Liver replaced by transplant Drug therapy Encounter for other specified aftercare documented in this encounter Additional Health Concerns Assessment Noted Time PHQ-9 Depression Total Score: 0 08/21/19 18 11:00 AM EST documented as of this encounter Care Teams Credit Card Interviewer Relationship Specialty Start Date End Date [place] [address] PCP - General 08/18/17 06/23/21 documented as of this encounter
--- OUTSIDE RECORDS SUMMARY | 2024-07-12 12:55 | XMS_ITS | Encounter Summary ---
Author Organization Health Address [facility] [place] [address] Care Team Providers Care Spray Applicator Name Role Phone Edgar Fournier MD Primary Care Provider [phone] Maile Valles RN Unavailable Unavail able Source [...] release of HIV test results or diagnoses. [id number] Health Encounter Details Date Type Department Care Team (Late st Contact Info) Description 11/02/2017 Chart Note [facility] Liver Transplant at Outpatient [address] [address] Latrice Brice MA Specimen submitted did not meet lab's criteria for acceptability. Social History Tobacco Use Types Packs/Day Years [...] Progress Notes * Latrice Brice MA - 11/02/2017 1:17 PM EDT Specimen submitted did not meet lab's criteria for acceptability. documented in this encounter Plan of Treatment Upcoming Encounters Date Type Department Care Team (Late st Contact Info) Description 07/15/2024 9:00 AM EST Hospital Encounter [facility] Interventional Radiology [address] [place] [address] Herve Carrillo MD [address] [facility] [address] [place] [address] documented as of this encounter Procedures Procedure Name Priority Date/Time Associated Diagnosis Comments CYCLOSPORINE LEVEL Routine 10/30/2017 10 :41 AM EDT documented in this encounter Results * Cyclosporine level (10/30/2017 10:41 AM EDT) Cyclosporine, Blood 25 Whole blood specimen (specimen) us Historical Provider LAB BLOOD ORDERABLES Yoselin l Result documented in this encounter Visit Diagnoses Not on filedocumented in this encounter Additional Health Concerns Assessment Noted Time PHQ-9 Depression Total Score: 2 11/01/19 18 3:00 PM EDT documented as of this encounter Care Teams Spray Applicator Relationship Specialty Start Date End Date Edgar Fournier MD [address] [place] [address] [place] [address] PCP - General 08/18/17 06/23/21 Maile Valles, RN Txp Post Coordinator Transplant Hepatology 11/07/17 documented as of this encounter
--- OUTSIDE RECORDS SUMMARY | 2024-07-12 12:55 | XMS_ITS | Encounter Summary ---
Author Organization [facility] Address [address] [place] [address] Care Team Providers Care Bar Pilot Name Role Phone Edgar Fournier MD Primary Care Provider [phone] Source Comments This information has been disclosed [...] release of HIV test results or diagnoses. [id number] Health Reason for Visit * Reason Comments Liver Transplant Follow-up Encounter Details Date Type Department Care Team (Late st Contact Info) Description 10/31/2017 8:45 AM EDT Office Visit [facility] Liver Transplant at Outpatient [address] [phone] Unknown, Attending Provider Chetan Gallagher MD Encounter for therapeutic drug level monitoring (Primary Dx); Liver transplant recipient (CMS-HCC); Immunosuppression (CMS-HCC); Essential hypertension; Peripheral edema Social History Tobacco Use Types Packs/Day Years [...] Sign Reading Time Taken Comments Blood Pressure 156/80 10/31/2017 7:00 AM EDT Pulse 75 10/31/2017 7:00 AM EDT Temperature 36.7 ??C (98.1 ??F) 10/31/2017 7:00 AM ED T Respiratory Rate 18 10/31/2017 7:00 AM EDT Oxygen Saturation 97% 10/31/2017 7:00 AM EDT Inhaled Oxygen Concentration 97% 10/31/2017 7 :00 AM EDT Weight 123.4 kg (272 lb) 10/31/2017 7:00 AM EDT Height 170.2 cm (5' 7 ) 10/31/2017 7:00 AM EDT Body Mass Index 42.6 10/31/2017 7:00 AM EDT documented in this encounter Patient Instructions * Patient Instructions* America Vazquez MD - 10/31/2017 8:45 AM EDT 1. Continue cyclosporine 200 mg twice daily, will adjust based on trough 2. Continue cellcept 500 mg twice daily 3. Continue prednisone 15 mg daily 4. Continue entecavir 5. Continue carvedilol 25 mg twice daily 6. Discontinue clonidine and hydralazine 7. Start Amlodipine 10 mg daily 8. Continue lasix 40 mg daily 9. Take raheel out today 10. Insulin adjustment per endocrinology 11. Labs twice weekly 12. Return in 1 week documented in this encounter Progress Notes * Chetan Gallagher MD - 10/31/2017 8:45 AM EDT Subjective: Aiden Stauffer is a 42 y.o. 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 He received a [facility] high risk donor, who was [...] 500 mg twice daily. Antimicrobial prophylaxis includes nystatin (stop date 11/05/17), bactrim (stop date 04/07/18) and valcyte (stop date 04/07/18). Cr 1.5, Hgb 8.1. Co-morbidities include hypertension for which is taking carvedilol 25 mg twice daily, clonidine 0.1 mg twice daily and hydralazine 10 mg TID and DM for which he is on insulin. With regards to the hypoxia he was evaluated by pulmonology and it was felt to be multifactorial from hepatopulmonary syndrome (noted on pre-op echo), volume overload and atelectasis. He underwent VQ scan which was negative for PE and CT chest was was relatively unremarkable. Patient presents today for initial clinic visit with his and mother. He is overall doing well.He still has tremors and remains volume overload but notes significant decrease in weight since discharge. The following portions of the patient's history [...] There is no rebound and no guarding. Moderately distended with ascites, raheel in place, surgical incision c/d/i Musculoskeletal: Normal range of motion. He exhibits edema. He exhibits no tenderness or deformity. 1+ pitting edema bilaterally Lymphadenopathy: He has no cervical adenopathy. Neurological: He is alert and oriented to person, place, and time. No cranial nerve deficit. Coordination normal. +tremor Skin: Skin is warm and dry. No rash noted. He is not diaphoretic. No erythema. No pallor. Psychiatric: He has a normal mood and affect. His behavior is normal. Judgment and thought content normal. Labs: The patient's recent laboratory results were reviewed. Assessment & Plan: 42 y.o. 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 He received a [facility] high risk donor, who was [...] 500 mg twice daily. Antimicrobial prophylaxis includes nystatin (stop date 11/05/17), bactrim (stop date 04/07/18) and valcyte (stop date 04/07/18). Cr 1.5, Hgb 8.1. Co-morbidities include hypertension for which is taking carvedilol 25 mg twice daily, clonidine 0.1 mg twice daily and hydralazine 10 mg TID and DM for which he is on insulin. We are overall pleased with his course. 1. Continue cyclosporine 200 mg twice daily, will adjust based on trough 2. Continue cellcept 500 mg twice daily 3. Continue prednisone 15 mg daily 4. Continue entecavir 5. Continue carvedilol 25 mg twice daily 6. Discontinue clonidine and hydralazine 7. Start Amlodipine 10 mg daily 8. Continue lasix 40 mg daily 9. Take raheel out today 10. Insulin adjustment per endocrinology 11. Labs twice weekly 12. Return in 1 week America Vazquez MD Transplant Hepatology Fellow I saw and examined the patient on 10/31/17. I discussed with Dr Vazquez, hepatology fellow and agree with her findings and plan as documented in the note. Chetan Gallagher MD GI & Hepatology staff Pgr: [phone] * Connie Hand MA - 10/31/2017 8:45 AM EDT Review of Systems Constitutional: Positive for malaise/fatigue. HENT: Negative. Eyes: Negative. Respiratory: Negative. Cardiovascular: Negative. Gastrointestinal: Positive for abdominal pain, diarrhea, nausea and vomiting. Genitourinary: Negative. Musculoskeletal: Positive for back pain. Skin: Negative. Neurological: Positive for tingling and weakness. Endo/Heme/Allergies: Negative. Psychiatric/Behavioral: Negative. * Nora Ashley, Wilbert - 10/31/2017 8:45 AM EDT Transplant Pharmacist Assessment and Recommendations: Current Outpatient Prescriptions Medication Sig ??? aspirin 81 MG chewable tablet Chew 1 tablet (81 mg total) by mouth daily with breakfast. ??? blood sugar diagnostic Strp Use to test blood sugar up to 4 times a day. Diagnosis for use: E 9.65. For use with One Touch Verio meters. ??? blood-glucose meter (ONETOUCH VERIO SYSTEM) [facility] Use as instructed. ??? carvedilol (COREG) 25 MG tablet Take 2 tablets (50 mg total) by mouth 2 times a day with meals. ??? cloNIDine HCl (CATAPRES) 0.1 MG tablet Take 1 tablet (0.1 mg total) by mouth 2 times a day. ??? cycloSPORINE modified (,NEORAL/GENGRAF,) 100 MG capsule Take 2 capsules (200 mg total) by mouth2 times a day. ??? cycloSPORINE modified (NEORAL/GENGRAF) [...] 3 times a day. ??? hydrALAZINE (APRESOLINE) 10 MG tablet Take 1 tablet (10 mg total) by mouth every 8 hours. ??? insulin lispro (HUMALOG KWIKPEN INSULIN) 100 unit/mL InPn Administer insulin with meals per sliding scale: glucose 150-199=2 u, 200-249=4 u, 250-299=7 u, 300-349=10 u, >349= 12 units ??? insulin NPH isoph U-100 human (HUMULIN N NPH INSULIN KWIKPEN) 100 unit/mL (3 mL) InPn Inject subcutaneously 40 units in the AM and 15 units in the PM. ??? lancets (ONETOUCH DELICA LANCETS) 33 gauge Misc Use 1 strip as directed 4 times daily before meals and at bedtime. ??? melatonin 3 mg Tab Take 2 tablets (6 mg total) by mouth at bedtime. ??? mycophenolate (CELLCEPT) 250 mg capsule Take 2 capsules (500 mg total) by mouth 2 times a day. ??? nystatin (MYCOSTATIN) 100,000 unit/mL suspension Take 5 mLs (500,000 Units total) by mouth 3 times a day. ??? oxyCODONE (ROXICODONE) 5 [...] tremors), mycophenolate 500mg bid, and prednisone 15mg daily. Reports tremors improved significantly with cyclosporine. Administers medications at: 9AM, 3PM and 9PM. Immunosuppression at 9AM and 9PM. Goal Tacrolimus level per protocol is 10-12ng/mL. Latest Tacrolimus level: Tacrolimus Lvl Date Value Ref Range Status 10/23/2017 3.9 (L) 5.0 - 20.0 ng/mL Final Comment: Detection limit: 2 ng/mL. Performed via chemiluminescent microparticle immunoassay on the [employer] i1000. 10/22/2017 7.0 5.0 - 20.0 ng/mL Final Comment: Detection limit: 2 ng/mL. Performed via chemiluminescent microparticle immunoassay on the [employer] i1000. Rejection in the past 12 months: none Prophylaxis: Viral (Valcyte 900mg daily): 6 months per protocol (D+/R-). Discontinue: 04/07/18 PCP (Bactrim): 6 months per protocol. Discontinue: 04/07/18 Fungal (Nystatin): 1 month per protocol. Discontinue: 11/05/17 Blood Sugars: YES diabetic prior to transplant On bolus and correction insulin. Defer to endocrine for management. Blood pressure: on therapy (hydralazine, clonidine, carvediol) 158/60 today in clinic. Reviewed log for past 3 days at home. Continue to monitor. Adherence: Patient reports missing 0 doses in the past 7 days (past 3 days since home) The following barriers to adherence have been identified: none It is my assessment that the patient demonstrates good adherence and medication understanding. Wifeassists with medication management. Reviewed card and able to review all medications and dosages. Other: 1) Insomnia: using melatonin but has 1 mg strength and only taking 3mg daily not 6 mg as MAR states. He will increase dose. 2) Pain: states not using much oxycodone. Having difficulty getting comfortable to sleep. 3) Edema: on furosemide 40mg daily x 14 days. Recommendations: 1. Cyclosporine: follow up on level from yesterday and adjust as necessary. 2. Prednisone: decrease next visit. 3. BP: continue to monitor; may consider switching therapy (these vidales what he was on pre) 4. Edema: assess furosemide. 5. Melatonin: increase to 6mg daily. * Maile Jean Baptiste, JANA - 10/31/2017 8:45 AM EDT After visit summary including patient instructions reviewed with patient and patient's . Medication list reviewed and medication card updated. Checked with patient to see if prescription refills and/or lab orders were needed. Updated preferred pharmacy and preferred lab information in patient de [facility]. Care coordinated with other team members and other medical providers as needed. Patient presents with the following needs: None verbalized at this time. documented in this encounter Plan of Treatment Upcoming Encounters Date Type Department Care Team (Late st Contact Info) Description 07/15/2024 9:00 AM [facility] Hospital Encounter [facility] Interventional Radiology [address] [place] [phone] Herve Carrillo MD [address] [facility] [address] Surgery [place] [address] documented as of this encounter Visit Diagnoses Diagnosis Encounter for therapeutic drug level monitoring- Primary Liver transplant recipient ([facility]-HCC) Immunosuppression ([facility]-HCC) Essential hypertension Unspecified essential hypertension Peripheral edema Edema documented in this encounter Additional Health Concerns Assessment Noted Time PHQ-9 Depression Total Score: 2 11/01/19 18 3:00 PM EDT documented as of this encounter Care Teams Bar Pilot Relationship Specialty Start Date End Date [place] [id number] PCP - General 08/18/17 06/23/21 documented as of this encounter
--- OUTSIDE RECORDS SUMMARY | 2024-07-12 12:55 | XMS_ITS | Encounter Summary ---
Author Organization [facility] Address [facility] [place] [address] Care Team Providers Care Receipt And Report Clerk Name Role Phone Edgar Fournier MD Primary Care Provider [phone] Source Comments This information has been disclosed [...] release of HIV test results or diagnoses. [id number] Health Encounter Details Date Type Department Care Team (Late st Contact Info) Description 10/31/2017 Chart Note [facility] Kidney Transplant at Outpatient [address] [phone] Laura Berrios RN Pre-transplant evaluation for chronic liver disease; Liver 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); Hepatic encephalopathy (CMS Dx); Secondary esophageal varices with bleeding ([facility]-HCC) Social History Tobacco Use Types Packs/Day Years [...] as of this encounter Progress Notes * Laura Berrios RN - 10/31/2017 9:15 AM EDT [place] Tab updated. [facility]OT transplant notification form completed and sent via encrypted email and scanned to [facility] documented in this encounter Plan of Treatment Upcoming Encounters Date Type Department Care Team (Late st Contact Info) Description 07/15/2024 9:00 AM EST Hospital Encounter [facility] Interventional Radiology [address] [place] [phone] Herve Carrillo MD [address] [facility] [address] [place] [phone] documented as of this encounter Visit Diagnoses Diagnosis Pre-transplant evaluation for chronic liver disease Liver 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) Hepatic encephalopathy (CMS-HCC) Hepatic encephalopathy Secondary esophageal varices with bleeding (CMS-HCC) documented in this encounter Additional Health Concerns Assessment Noted Time PHQ-9 Depression Total Score: 2 11/01/19 18 3:00 PM EDT documented as of this encounter Care Teams Receipt And Report Clerk Relationship Specialty Start Date End Date [place] [address] PCP - General 08/18/17 06/23/21 documented as of this encounter
--- OUTSIDE RECORDS SUMMARY | 2024-07-12 12:55 | XMS_ITS | Encounter Summary ---
Author Organization Health Address [facility] [place] [address] Care Team Providers Care Flux Mixer Name Role Phone Edgar Fournier MD Primary Care Provider [phone] Maile Valles RN Unavailable Unavail able Source [...] release of HIV test results or diagnoses. [id number] Health Encounter Details Date Type Department Care Team (Late st Contact Info) Description 11/06/2017 Chart Note [facility] Liver Transplant at Outpatient [address] [phone] Latrice Brice MA Social History Tobacco Use [...] Description 07/15/2024 9:00 AM EST Hospital Encounter [facility] Interventional Radiology [address] [place] [address] Herve Carrillo MD [address] Surgery [place] [address] documented as of this encounter Procedures Procedure Name Priority Date/Time Associated Diagnosis Comments TACROLIMUS LEVEL Routine 10/31/2017 10:4 1 AM EDT documented in this encounter Results * Tacrolimus level (10/31/2017 10:41 AM EDT) Tacrolimus by Immunoassay -- Tacrolimus Lvl 6 - 15 ng/mL Whole blood specimen (specimen) us Historical Provider LAB BLOOD ORDERABLES Edit ed Result - Final documented in this encounter Visit Diagnoses Not on filedocumented in this encounter Additional Health Concerns Assessment Noted Time PHQ-9 Depression Total Score: 2 11/01/19 18 3:00 PM EDT documented as of this encounter Care Teams Flux Mixer Relationship Specialty Start Date End Date Edgar Fournier MD [address] [place] [address] [place] [address] PCP - General 08/18/17 06/23/21 Maile Valles, RN Txp Post Coordinator Transplant Hepatology 11/07/17 documented as of this encounter
--- OUTSIDE RECORDS SUMMARY | 2024-07-12 12:55 | XMS_ITS | Encounter Summary ---
Author Organization [facility] Address [facility] [place] [address] Care Team Providers Care Health Services Information Specialist Name Role Phone Edgar Fournier MD Primary Care Provider [phone] Source Comments This information has been disclosed [...] release of HIV test results or diagnoses. [id number] Health Encounter Details Date Type Department Care Team (Late st Contact Info) Description 10/31/2017 9:00 AM EDT Office Visit [facility] Liver Transplant at Outpatient [address] [phone] Gina Glez, PHOTOGRAPHIC PROCESSOR [address] [place] [address] Controlled type 2 diabetes mellitus with hyperglycemia, with long-term current use of insulin ([facility]-HCC) (Primary Dx); S/P liver transplant ([facility]-HCC) Social History Tobacco Use Types Packs/Day [...] of this encounter Progress Notes * Gina Kohlerters, PHOTOGRAPHIC PROCESSOR - 10/31/2017 9:00 AM EDT History of Present Illness: Aiden [...] prior to sx. Using >20 units correction. Current Diabetes Medications: NPH 40 units qam and 15 units qpm Humalog [...] Exam: Vitals - 1 value per visit 10/31/2017 SYSTOLIC 156 DIASTOLIC 80 PULSE 75 TEMPERATURE 98.1 SPO2 97 RESPIRATIONS 18 Weight (lb) 272 HEIGHT 5' 7 BODY MASS INDEX 42.6 GENERAL: No acute distress. Morbidly obese. MENTAL STATUS: Pleasant. A/O x3. SKIN: [place], warm, & dry. HEENT: Atraumatic. Symmetrical. LUNGS: Respirations even and unlabored. HEART: + edema. ABDOMEN: Obese. NEUROLOGIC: No apparent focal motor or sensory deficit. No tremor. MUSCULOSKELETAL: Sitting in chair without assistance. Assessment & Plan: Diabetes Mellitus-Type 2 with hyperglycemia -increase am NPH to 48 units -Reinforced the rule of 15 for treating hypoglycemia and to notify me for any lows (<70) or sustained highs. Follow-up as previously scheduled. MEDICAL DECISION MAKING: Review of data completed: lab results, imaging, specimen(s), permanent chart problem/surgery list, permanent chart chronic med/allergy list, permanent chart social/family history and other diagnosticand treatment history. Please see my assessment and plan for details. Gina Caballero, MSN, PHOTOGRAPHIC PROCESSOR, CHOIR LEADER-BC documented in this encounter Plan of Treatment Upcoming Encounters Date Type Department Care Team (Late st Contact Info) Description 07/15/2024 9:00 AM EST Hospital Encounter [facility] Interventional Radiology [address] [place] [address] Herve Carrillo MD [address] [facility] [address] [place] [phone] documented as of this encounter Visit Diagnoses Diagnosis Controlled type 2 diabetes mellitus with hyperglycemia, with long-term current use of insulin (CMS-HCC)- Primary S/P liver transplant (CMS-HCC) documented in this encounter Additional Health Concerns Assessment Noted Time PHQ-9 Depression Total Score: 2 11/01/19 18 3:00 PM EDT documented as of this encounter Care Teams Health Services Information Specialist Relationship Specialty Start Date End Date Edgar Fournier [place] [address] PCP - General 08/18/17 06/23/21 documented as of this encounter
--- OUTSIDE RECORDS SUMMARY | 2024-07-12 12:55 | XMS_ITS | Encounter Summary ---
Author Organization Health Address [facility] [address] [place] [address] Care Team Providers Care Shredding Machine Operator Name Role Phone Edgar Fournier MD Primary Care Provider [phone] Maile Valles RN Unavailable Unavail able Source [...] release of HIV test results or diagnoses. [id number] Health Encounter Details Date Type Department Care Team (Late st Contact Info) Description 10/30/2017 Chart Note [facility] Liver Transplant at Outpatient [address] [phone] Latrice Brice MA Social History Tobacco Use [...] Description 07/15/2024 9:00 AM EST Hospital Encounter [facility] Interventional Radiology [address] [place] [address] Herve Crarillo MD [address] [place] [address] documented as of this encounter Procedures Procedure Name Priority Date/Time Associated Diagnosis Comments HEPATIC FUNCTION PANEL Routine 10/30/2017 10:41 AM EDT CBC AND DIFFERENTIAL Routine 10/30/2017 10:41 AM EDT MAGNESIUM Routine 10/30/2017 10:41 AM EDT RENAL FUNCTION PANEL W/O EGFR Routine 10/30/2017 10:41 AM EDT documented in this encounter Results * Magnesium (10/30/2017 10:41 AM EDT) Magnesium 1.6 1.6 - 2.4 mg/dL EXTERNAL Plasma specimen (specimen) us Historical Provider LAB BLOOD ORDERABLES Yoselin l Result EXTERNAL * (ABNORMAL) Renal Function Panel w/o EGFR (10/30/2017 10:41 AM EDT) Glucose 133 mg/dL EXTERNAL BUN 8 4 - 21 mg/dL EXTERNAL CO2 29(A) 13 - 22 mmol/L EXTERNAL Creatinine 1.5(A) 0.6 - 1.3 mg/dL EXTERNAL Potassium 4.2 3.4 - 5.3 mmol/L EXTERNAL Sodium 139 137 - 147 mmol/L EXTERNAL Chloride 98(A) 99 - 108 mmol/L EXTERNAL Albumin 3.2 EXTERNAL Phosphorus 4 2.5 - 4.9 mg/dL EXTERNAL Calcium 9.2 8.7 - 10.7 mg/dL EXTERNAL EGFR 54 mg/dL EXTERNAL Blood specimen (specimen) Historical Provider LAB BLOOD ORDERABLES Yoselin robles Result EXTERNAL * (ABNORMAL) CBC and differential (10/30/2017 10:41 AM EDT) Hemoglobin 8.1(A) 13.5 - 17.5 g/dL EXTERNAL Hematocrit 24.3(A) 41 - 53 % EXTERNAL RDW 17.9(A) 11.5 - 14.5 % EXTERNAL Lymphocytes Absolute 0.4 /??L EXTERNAL Monocytes Absolute 0.5 /??L EXTERNAL Neutrophils Relative 86(A) 46 - 78 % EXTERNAL Lymphocytes Relative 6(A) 18 - 52 % EXTERNAL Monocytes Relative 8 3 - 10 % EXTERNAL Neutrophils Absolute 5.8 /??L EXTERNAL MCH 34.5(A) 26.0 - 34.0 pg EXTERNAL MCHC 33.3 30 - 37 g/dL EXTERNAL MCV 103 82.0 - 108.0 fL EXTERNAL Platelets 383 K/??L EXTERNAL RBC 2.35(A) 4.50 - 5.90 10^6/??L EXTERNAL WBC 6.7 10^3/mL EXTERNAL Blood specimen (specimen) Result [facility] Historical Provider LAB BLOOD ORDERABLES Yoselin margaret Result Performing Organization Address [facility] Co de Phone Number EXTERNAL * Hepatic Function Panel (10/30/2017 10:41 AM EDT) Alkaline Phosphatase 76 U/L EXTERNAL ALT 20 U/L EXTERNAL AST 6 U/L EXTERNAL Total Bilirubin 1.1 0.1 - 1.4 mg/dL EXTERNAL Bilirubin, Direct 0.3 0.01 - 0.4 mg/dL EXTERNAL Plasma specimen (specimen) Result [facility] Historical Provider LAB BLOOD ORDERABLES Yoselin robles Result EXTERNAL documented in this encounter Visit Diagnoses Not on filedocumented in this encounter Additional Health Concerns Assessment Noted Time PHQ-9 Depression Total Score: 0 08/21/19 18 11:00 AM EST documented as of this encounter Care Teams Shredding Machine Operator Relationship Specialty Start Date End Date Edgar Fournier MD [address] [place] [address] PCP - General 08/18/17 06/23/21 Maile Valles, RN Txp Post Coordinator Transplant Hepatology 11/07/17 documented as of this encounter
--- OUTSIDE RECORDS SUMMARY | 2024-07-12 12:55 | XMS_ITS | Encounter Summary ---
Author Organization [facility] Address [address] [place] [address] Care Team Providers Care Driver/Merchandiser Name Role Phone Edgar Fournier MD Primary Care Provider [phone] Source Comments This information has been disclosed [...] release of HIV test results or diagnoses. [id number] Health Reason for Visit * Reason Onset Date Comments Results 11/03/2017 Encounter Details Date Type Department Care Team (Late st Contact Info) Description 11/03/2017 Telephone [facility] Liver Transplant at Outpatient [address] [phone] Maile Valles, JANA Results Social History Tobacco [...] Encounter - Maile Jean Baptiste RN - 11/03/2017 1:59 PM EDT Lab results from 11/02/17 reviewed. LFTs stable. Cr remains at 1.5 CSA level pending. Issues with C and local lab. Patient would like to d/c [facility] and go to a different local lab [place]. Patient is still being seen weekly in Liver Clinic at [facility], therefore patient will get labs at the outpatient building on Tuesdays prior to his appointments. As long as labs are required, patient will go to [facility]. Encouraged patient to increase hydration. Discussed patient's overall experience since transplant. Patient feels good and has no further questions at this time. documented in this encounter Plan of Treatment Upcoming Encounters Date Type Department Care Team (Late st Contact Info) Description 07/15/2024 9:00 AM EST Hospital Encounter [facility] Interventional Radiology [address] [place] [address] Herve Carrillo MD 3130 [facility] 3200 Surgery [place] [address] documented as of this encounter Visit Diagnoses Not on filedocumented in this encounter Additional Health Concerns Assessment Noted Time PHQ-9 Depression Total Score: 2 11/01/19 18 3:00 PM EDT documented as of this encounter Care Teams Driver/Merchandiser Relationship Specialty Start Date End Date Edgar Fournier MD [address] [place] [address] [place] [address] PCP - General 08/18/17 06/23/21 documented as of this encounter
--- OUTSIDE RECORDS SUMMARY | 2024-07-12 12:55 | XMS_ITS | Encounter Summary ---
Author Organization [facility] Address [facility] [place] [address] Care Team Providers Care Machine Carton Marker Name Role Phone Edgar Fournier MD Primary Care Provider [phone] Source Comments This information has been disclosed [...] release of HIV test results or diagnoses. [id number] Health Encounter Details Date Type Department Care Team (Late st Contact Info) Description 11/01/2017 Telephone [facility] Sleep Medicine Center at [facility] [address] [facility] [address] [place] [address] Russell Amado MD [address] [facility] 3rd [place] [address] Social History Tobacco Use Types Packs/Day Years [...] encounter Miscellaneous Notes * Telephone Encounter - Russell Amado MD - 11/01/2017 2:05 PM EDT REM-onset sleep apnea: Has not had a CPAP titration for Tx. Do recommend that he receives tx for this. Will need Sleep Study/CPAP titration. Wishes to have study done at [facility] and to f/u w/ [facility] sleep program. Recommend contacting sleep center prior to discharge to expeditearrangements for study/sleep f/u. This note in Dr Mckeon's pulmonary consult indicates that the patient prefers to follow up closer to home. If this is not acceptable to the transplant program, I approve a PAP titration study as he hasalready had a diagnostic study prior to this admission. We will need a copy of that study. Electronically signed by: RUSSELL AMADO MD 11/01/2017 2:08 PM documented in this encounter Plan of Treatment Upcoming Encounters Date Type Department Care Team (Late st Contact Info) Description 07/15/2024 9:00 AM EST Hospital Encounter [facility] Interventional Radiology [address] [place] [phone] Herve Carrillo MD 3130 [facility] 3200 Surgery [place] [address] documented as of this encounter Visit Diagnoses Not on filedocumented in this encounter Additional Health Concerns Assessment Noted Time PHQ-9 Depression Total Score: 2 11/01/19 18 3:00 PM EDT documented as of this encounter Care Teams Machine Carton Marker Relationship Specialty Start Date End Date Edgar Fournier MD [address] [place] [address] [place] [address] PCP - General 08/18/17 06/23/21 documented as of this encounter
--- OUTSIDE RECORDS SUMMARY | 2024-07-12 12:55 | XMS_ITS | Encounter Summary ---
Author Organization Health Address [address] [place] [address] Care Team Providers Care Quality Internship Name Role Phone Edgar Fournier MD Primary Care Provider [phone] Source Comments This information has been disclosed [...] release of HIV test results or diagnoses. [id number] Health Encounter Details Date Type Department Care Team (Late st Contact Info) Description 10/30/2017 Telephone [facility] Liver Transplant at Outpatient [address] [phone] Aleta Worthington, RN Social History Tobacco Use Types Packs/Day [...] encounter Miscellaneous Notes * Telephone Encounter - Aleta Wrothington RN - 10/30/2017 7:32 AM EDT Call received from patient. Blood sugar elevated at 404. Took 12 units of insulin. Instructed to recheck in one hour and call coordinator back if remains elevated. documented in this encounter Plan of Treatment Upcoming Encounters Date Type Department Care Team (Late st Contact Info) Description 07/15/2024 9:00 AM EST Hospital Encounter [facility] Interventional Radiology [address] [place] [phone] Herve Carrillo MD 3130 [facility] 3200 [place] [address] documented as of this encounter Visit Diagnoses Not on filedocumented in this encounter Additional Health Concerns Assessment Noted Time PHQ-9 Depression Total Score: 0 08/21/19 18 11:00 AM EST documented as of this encounter Care Teams Quality Internship Relationship Specialty Start Date End Date Edgar Fournier MD [address] [place] [address] PCP - General 08/18/17 06/23/21 documented as of this encounter
--- OUTSIDE RECORDS SUMMARY | 2024-07-12 12:55 | XMS_ITS | Encounter Summary ---
Author Organization [facility] Address [address] [place] [address] Care Team Providers Care Fund Development Manager Name Role Phone Edgar Fournier MD Primary Care Provider [phone] Source Comments This information has been disclosed [...] release of HIV test results or diagnoses. [id number] Health Reason for Visit * Reason Onset Date Comments Results 11/02/2017 Encounter Details Date Type Department Care Team (Late st Contact Info) Description 11/02/2017 Telephone [facility] Liver Transplant at Outpatient [address] [phone] Maile Valles, JANA Results Social History Tobacco [...] Encounter - Maile Jean Baptiste RN - 11/02/2017 1:49 PM EDT Clarified with lab. The sample for CSA level was not large enough to process correctly. Will make Txp Provider aware. * Telephone Encounter - Maile Jean Baptiste RN - 11/02/2017 1:37 PM EDT Lab results from 10/30/17 reviewed in clinic appointment on 10/31/17. CSA level 25 (~14 hour trough), goal 150-200. Will route to Txp Provider for review and recommendations. documented in this encounter Plan of Treatment Upcoming Encounters Date Type Department Care Team (Late st Contact Info) Description 07/15/2024 9:00 AM [facility] Hospital Encounter [facility] Interventional Radiology [address] [place] [phone] Herve Carrillo MD 3130 [facility] 3200 [place] [address] documented as of this encounter Visit Diagnoses Not on filedocumented in this encounter Additional Health Concerns Assessment Noted Time PHQ-9 Depression Total Score: 2 11/01/19 18 3:00 PM EDT documented as of this encounter Care Teams Fund Development Manager Relationship Specialty Start Date End Date Edgar Fournier MD [address] [place] [address] [place] [address] PCP - General 08/18/17 06/23/21 documented as of this encounter
--- OUTSIDE RECORDS SUMMARY | 2024-07-12 12:55 | XMS_ITS | Encounter Summary ---
Author Organization Health Address [facility] [place] [address] Care Team Providers Care Social And Political Studies Professor Name Role Phone Edgar Fournier MD Primary Care Provider [phone] Source Comments This information has been disclosed [...] release of HIV test results or diagnoses. [id number] Health Encounter Details Date Type Department Care Team (Late st Contact Info) Description 11/06/2017 Telephone [facility] Liver Transplant at Outpatient [address] [phone] Lynnette Muhammad MA Social History Tobacco Use [...] Telephone Encounter - Maru Flores RN - 11/06/2017 11:49 AM EDT Patient c/o R arm tenderness and mild edema to the antecubital area. Patient states he had an IV in that arm after transplant Patient also states his home care nurse tried to get blood from that area this morning Patient denies fever, numbness, tingling, or red streaking to the R arm Suspect the pain and edema are r/t past IV placement and recent blood draw Advised patient to apply warm compresses to the area, elevate the extremity and take tylenol OTC asdirected prn pain-no more than 2000 mg in 24 hrs. Labs and txp F/U tomorrow. Patient verbalized understanding and is comfortable with this plan of care. * Telephone Encounter - Lynnette Muhammad MA - 11/06/2017 11:32 AM EDT Patient called and said on his right arm from his elbow to his wrists hurts and a little swollen. Wants to know if he could go local ER and get it check out. He knows he is coming here tomorrow but doesn't want to wait. documented in this encounter Plan of Treatment Upcoming Encounters Date Type Department Care Team (Late st Contact Info) Description 07/15/2024 9:[address] [facility] Hospital Encounter [facility] Interventional Radiology [address] [place] [phone] Herve Carrillo MD [address] [place] [place] [address] documented as of this encounter Visit Diagnoses Not on filedocumented in this encounter Additional Health Concerns Assessment Noted Time PHQ-9 Depression Total Score: 2 11/01/19 18 3:00 PM EDT documented as of this encounter Care Teams Social And Political Studies Professor Relationship Specialty Start Date End Date Edgar Fournier MD [address] [place] [phone] PCP - General 08/18/17 06/23/21 documented as of this encounter
--- OUTSIDE RECORDS SUMMARY | 2024-07-12 12:55 | XMS_ITS | Encounter Summary ---
Author Organization Health Address [facility] [place] [address] Care Team Providers Care Wheel Braider Name Role Phone Edgar Fournier MD Primary Care Provider [phone] Maile Valles RN Unavailable Unavail able Source [...] release of HIV test results or diagnoses. [id number] Health Encounter Details Date Type Department Care Team (Late st Contact Info) Description 11/02/2017 Orders Only [facility] Liver Transplant at Outpatient [address] [address] Latrice Brice MA Transplanted liver ([facility]); Drug therapy Social History Tobacco Use Types [...] 07/15/2024 9:00 AM EST Hospital Encounter [facility] Interventional Radiology [address] [place] [address] Herve [facility]illo MD [facility] 3[address] [place] [address] documented as of this encounter Visit Diagnoses Diagnosis Transplanted liver (CMS-HCC) Liver replaced by transplant Drug therapy Encounter for other specified aftercare documented in this encounter Additional Health Concerns Assessment Noted Time PHQ-9 Depression Total Score: 2 11/01/19 18 3:00 PM EDT documented as of this encounter Care Teams Wheel Braider Relationship Specialty Start Date End Date Edgar Fournier MD [address] [place] [address] PCP - General 08/18/17 06/23/21 aMile Valles, RN Txp Post Coordinator Transplant Hepatology 11/07/17 documented as of this encounter
--- OUTSIDE RECORDS SUMMARY | 2024-07-12 12:55 | XMS_ITS | Encounter Summary ---
Author Organization [facility] Address [address] [place] [address] Care Team Providers Care Special Needs Babysitter Name Role Phone Edgar Fournier MD Primary Care Provider [phone] Source Comments This information has been disclosed [...] release of HIV test results or diagnoses. [id number] Health Encounter Details Date Type Department Care Team (Late st Contact Info) Description 10/27/2017 Chart Note [facility] [address] [place] [address] Mandi Cazares, PharmD Transplant pharmacy discharge note Social History Tobacco Use Types Packs/Day Years [...] as of this encounter Progress Notes * Mandi Cazares, PharmD - 10/27/2017 4:02 PM EDT Transplant pharmacy discharge note Patient name: Aiden Stauffer Transplant date: 10/08/17 Transplant type: OLT Primary disease: SAL Discharge date: 10/27/17 Discharge location: Home CMV status: D+/R- EBV status: D+/R+ PHS 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 +) Study: TeleHealth - Standard of Care Immunosuppression: Renal Sparing Discharge medications: Medication Dose Comments Thymoglobulin 1.5 mg/kg (175 mg) x 1 dose Date: 10/09/17 Infectious prophylaxis Nystatin 500,000 units swish and swallow by mouth three times daily Per protocol stop date : 11/05/17 Sulfamethoxazole- Trimethoprim 400mg-80mg (SS) 1 tablet by mouth daily Per protocol stop date : 04/07/18 Valganciclovir 900 mg by mouth daily Per protocol stop date : 04/07/18 Maintenance immunosuppression Prednisone 15 mg by mouth daily Continue taper per protocol Decrease to 10mg daily on: 11/08/17 Mycophenolate mofetil 500 mg by mouth twice daily Cyclosporine 200 mg by mouth twice daily Switched due to severe tremors with tacrolimus Last Level: 576 ng/mL (drawn 40 min after dose given) Last dose change: 10/25/17 Trough goals: 150-200 ng/mL Antidiabetic medications (WAS diabetic prior to OLT) Insulin NPH Basal dose Inject subcutaneously 40 units in the AM and 15 units in the PM Insulin lispro correction scale HIGH dose Blood sugars Insulin dose before meals Insulin dose at bedtime Total daily correction scale insulin requirements in the 24 hours prior to discharge : 39 100-149 0 0 150-199 2 0 200-249 4 0 250-299 7 0 300-349 10 0 > 350 12 0 Other medications ASA 81mg by mouth daily Indication: hepatic artery reconstruction Carvedilol 50 mg by mouth twice a day Clonidine 0.1 mg by mouth twice a day Ergocalciferol 50,000 units by mouth once a week Entecavir 1 mg by mouth daily Indications: Anti-HBcAb +/ALEXANDRA + donor No HBIG given since HepB surface antibody 171 Esomeprazole 40 mg by mouth daily Furosemide 40 mg by mouth daily Gabapentin 600 mg by mouth three times a day Hydralazine 10 mg by mouth every 8 hours Melatonin 6 mg by mouth at bedtime Oxycodone 5-10 mg by mouth, as needed Tizanidine 0.5 mg by mouth nightly, as needed The following home medications were discontinued in hospital: 1. Buprenorphine (never used) 2. Glimepiride 3. Lantus 4. Lactulose 5. Losartan 6. Metformin 7. Rifaximin 8. Zinc sulfate 9. Apidra solostar Need for renal replacement therapy on discharge: None The following issues are to be addressed as an outpatient: 1. Infectious disease a. 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 No intervention needed. 2. Immunosuppression a. Patient experienced severe whole body tremors at about POD10. Held tacrolimus 3 POD12 and continued to hold through the weekend. Marked improvement in tremors. Started cyclosporine 3 POD15. Follow up in Liver Clinic: Monday10/31/17 Mandi Cazares PharmD Transplant Pharmacy Specialty Resident Desk Pager: [phone] documented in this encounter Plan of Treatment Upcoming Encounters Date Type Department Care Team (Late st Contact Info) Description 07/15/2024 9:00 AM EST Hospital Encounter [facility] Interventional Radiology [address] [place] [phone] Herve Carrillo MD 5483 [facility] 3200 [place] [address] documented as of this encounter Visit Diagnoses Not on filedocumented in this encounter Additional Health Concerns Assessment Noted Time PHQ-9 Depression Total Score: 0 08/21/19 18 11:00 AM EST documented as of this encounter Care Teams Special Needs Babysitter Relationship Specialty Start Date End Date Edgar Fournier MD [address] [place] [address] [place] [address] PCP - General 08/18/17 06/23/21 documented as of this encounter
--- OUTSIDE RECORDS SUMMARY | 2024-07-12 12:55 | XMS_ITS | Encounter Summary ---
Author Organization [facility] Address [facility] [place] [address] Care Team Providers Care Picker Feeder Name Role Phone Edgar Fournier MD Primary Care Provider [phone] Source Comments This information has been disclosed [...] release of HIV test results or diagnoses. [id number] Health Encounter Details Date Type Department Care Team (Late st Contact Info) Description 11/05/2017 Telephone [facility] Liver Transplant at Outpatient [address] [phone] Hung Trivedi MD [address] [place] [phone] Social History Tobacco Use Types Packs/Day Years [...] Telephone Encounter - Dillon Whitman RN - 11/05/2017 12:22 PM EDT Patient called with complaints of constipation. Did have two small formed bowel movements this morning, but still feels bloated, crampy, and uncomfortable. Passing flatus. No other complaints. Ambulating, tolerating diet, and taking in an appropriate amount of fluids. Rarely taking pain pills. Per patient mackenzie lax was discussed in clinic this past week. Advised that he can trial Mackenzie lax. Encouraged to call for further issues and confirmed his apt this Monday. documented in this encounter Plan of Treatment Upcoming Encounters Date Type Department Care Team (Late st Contact Info) Description 07/15/2024 9:00 AM [facility] Hospital Encounter [facility] Interventional Radiology [address] [place] [address] Herve Carrillo MD [address] [facility] 3200 [place] [address] documented as of this encounter Visit Diagnoses Not on filedocumented in this encounter Additional Health Concerns Assessment Noted Time PHQ-9 Depression Total Score: 2 11/01/19 18 3:00 PM EDT documented as of this encounter Care Teams Picker Feeder Relationship Specialty Start Date End Date Edgar Fournier MD [address] [place] [address] [place] [address] PCP - General 08/18/17 06/23/21 documented as of this encounter
--- OUTSIDE RECORDS SUMMARY | 2024-07-12 12:55 | XMS_ITS | Encounter Summary ---
Author Organization [facility] Address [address] [place] [address] Care Team Providers Care Cad Technician Name Role Phone Edgar Fournier MD Primary Care Provider [phone] Source Comments This information has been disclosed [...] release of HIV test results or diagnoses. [id number] Health Encounter Details Date Type Department Care Team (Late st Contact Info) Description 10/31/2017 Telephone [facility] Sleep Medicine at Sleep Center [address] [place] [address] [place] [address] Jennifer Cantu MD [address] [place] [address] 3rd [place] [address] Social History Tobacco Use Types [...] Encounter - Maile Jean Baptiste RN - 11/01/2017 9:07 AM EDT Txp coordinator faxed referral for sleep testing to the number provided. * Telephone Encounter - Parekr Maher - 11/01/2017 8:44 AM EDT Received call back this morning from the transplant unit with [employer] [place] [employer], and was informed that any sleep testing with would not be covered since it is considered unrelated to this patient's liver transplant. I was also informed previously by a sales representative printing supplies within the health plan's sleep dept that he would have to receive services from a provider in [place] since there are a number of them around the area he currently resides. Raquel, the nurse caring for the patient at the home health facility, states that a referral/order for sleep testing will need to be faxed down to their facility if he is to have it done there. The fax number is [phone]. Please let me know if you have any additional questions regarding this patient. * Telephone Encounter - Parker Maher - 10/31/2017 3:26 PM EDT Left message with [facility] regarding pre-cert for sleep testing that has been orderedin response to current conditions after transplant. Will follow-up with nurse line if I haven't received a call back by 11/01, by calling [phone] opt 1 and opt 1. documented in this encounter Plan of Treatment Upcoming Encounters Date Type Department Care Team (Late st Contact Info) Description 07/15/2024 9:00 AM EST Hospital Encounter [facility] Interventional Radiology [address] [place] [phone] Herve Carrillo MD 7770 [facility] 3200 Surgery [place] [address] documented as of this encounter Visit Diagnoses Not on filedocumented in this encounter Additional Health Concerns Assessment Noted Time PHQ-9 Depression Total Score: 2 11/01/19 18 3:00 PM EDT documented as of this encounter Care Teams Cad Technician Relationship Specialty Start Date End Date Edgar Fournier MD [address] [place] [address] PCP - General 08/18/17 06/23/21 documented as of this encounter
--- OUTSIDE RECORDS SUMMARY | 2024-07-12 12:55 | XMS_ITS | Encounter Summary ---
Author Organization Health Address [facility] [place] [address] Care Team Providers Care Auditor Name Role Phone Edgar Fournier MD Primary Care Provider [phone] Maile Valles RN Unavailable Unavail able Source [...] release of HIV test results or diagnoses. [id number] Health Encounter Details Date Type Department Care Team (Late st Contact Info) Description 11/06/2017 Chart Note [facility] Liver Transplant at Outpatient [address] [address] Latrice Brice MA Social History Tobacco Use [...] Description 07/15/2024 9:00 AM EST Hospital Encounter [facility] Interventional Radiology [address] [place] [address] Herve Carrillo MD [address] [place] [address] documented as of this encounter Procedures Procedure Name Priority Date/Time Associated Diagnosis Comments TACROLIMUS LEVEL Routine 11/02/2017 10:4 9 AM EDT documented in this encounter Results * Tacrolimus level (11/02/2017 10:49 AM EDT) Tacrolimus by Immunoassay -- Tacrolimus Lvl 6 - 15 ng/mL Whole blood specimen (specimen) us Historical Provider LAB BLOOD ORDERABLES Edit ed Result - Final documented in this encounter Visit Diagnoses Not on filedocumented in this encounter Additional Health Concerns Assessment Noted Time PHQ-9 Depression Total Score: 2 11/01/19 18 3:00 PM EDT documented as of this encounter Care Teams Auditor Relationship Specialty Start Date End Date Edgar Fournier MD [address] [place] [address] [place] [address] PCP - General 08/18/17 06/23/21 Maile Valles, RN Txp Post Coordinator Transplant Hepatology 11/07/17 documented as of this encounter
--- OUTSIDE RECORDS SUMMARY | 2024-07-12 12:58 | XMS_ITS | Encounter Summary ---
Author Organization Health Address [address] [place] [id number] Care Team Providers Care Volunteer Assistant Name Role Phone Edgar Fournier MD Primary Care Provider [phone] Source Comments This information has been disclosed [...] release of HIV test results or diagnoses. [id number] Encounter Details Date Type Department Care Team (Late st Contact Info) Description 10/09/2017 Chart Note [facility] Kidney Transplant at Outpatient [address] [phone] Balbina Pugh, RN I introduced myself as post liver shutdown coordinator, explained role Social History Tobacco Use Types Packs/Day Years [...] as of this encounter Progress Notes * Balbina Pugh RN - 10/09/2017 2:50 PM EST I introduced myself as post liver shutdown coordinator, explained role and provided my contact information. Initial Post-Transplant Education and discharge planning discussed with patient and their caregiver/support persons, Kym and mom Kimberly. Target discharge on TBD. Communication provided to the multidisciplinary care team. Patient lives with Kym who will be the primary caregiver and it was confirmed that additional support will be provided by momKimberly. Patient and caregiver/support person(s) were provided with an overview of post-transplant care and the discharge process. A Post Liver Transplant folder, and the link to Living with your Transplant were provided. I encouraged them all to review the information before our education session. I plan to meet with patient and caregiver team for additional transplant education and reinforcement on TBD @ TBD. documented in this encounter Plan of Treatment Upcoming Encounters Date Type Department Care Team (Late st Contact Info) Description 07/15/2024 9:00 AM EST Hospital Encounter [facility] Interventional Radiology [address] [place] [phone] Herve Carrillo MD [address] [facility] [address] [facility] [place] [phone] documented as of this encounter Visit Diagnoses Not on filedocumented in this encounter Additional Health Concerns Assessment Noted Time PHQ-9 Depression Total Score: 0 08/21/19 18 11:00 AM EST documented as of this encounter Care Teams Volunteer Assistant Relationship Specialty Start Date End Date Edgar Fournier MD [address] [place] [address] JASON Downs [phone] PCP - General 08/18/17 06/23/21 documented as of this encounter
--- OUTSIDE RECORDS SUMMARY | 2024-07-12 12:58 | XMS_ITS | Encounter Summary ---
Author Organization [facility] Address [facility] [place] [address] Care Team Providers Care Feather Renovator Name Role Phone Edgar Fournier MD Primary Care Provider [phone] Source Comments This information has been disclosed [...] release of HIV test results or diagnoses. [id number] Health Reason for Visit * Auth/Cert Specialty Diagnoses / Procedures Referred By Declan t Referred To Contact Surgical Intensive Care Diagnoses S/P liver transplant (CMS-HCC) LIVER TRANSPLANT Procedures TRANSPLANT LIVER [facility] SICU [address] [place] [address] Phone: tel: Referral ID Status Reason Start Date Expiration Date Visits Re quested Visits Authorized [id number] 1 1 Encounter Details Date Type Department Care Team (Late st Contact Info) Description 10/07/2017 10:58 PM EST - 10/27/2017 3:57 PM EDT Hospital Encounter [address] [place] [address] Tami Richardson MD [address] [facility] [address] [place] [address] David Mendenhall MD [address] [facility] [address] [place] [address] Liver transplant candidate (Primary Dx); Encephalopathy; Immunosuppression (CMS-HCC); Liver transplanted (CMS-HCC); Fever, unspecified fever cause; Hypoxia Discharge Disposition: Home WITH Home Health Care [...] Sign Reading Time Taken Comments Blood Pressure 147/77 10/27/2017 11:53 AM EDT Pulse 72 10/27/2017 11:53 AM EDT Temperature 37 ??C (98.6 ??F) 10/27/2017 11:53 AM EDT Respiratory Rate 18 10/27/2017 11:53 AM EDT Oxygen Saturation 95% 10/27/2017 11:53 AM EDT Inhaled Oxygen Concentration 95% 10/27/2017 1 1:53 AM EDT Weight 128 kg (282 lb 3.2 oz) 10/27/2017 5:44 AM EDT Height 170.2 cm (5' 7 ) 10/10/2017 2:59 PM EST Body Mass Index 44.2 10/10/2017 2:59 PM EST documented in this encounter Discharge Summaries * Shira Feng CNP - 10/27/2017 3:57 PM EDT [facility] Inpatient Discharge Summary Patient: Leoncio Rollins Age: 42 y.o. CSN: [id number] Date of Admission: 10/07/2017 Date of Discharge: 10/27/2017 Attending Physician: Gennaro Reyes MD Primary Care Physician: Edgar Fournier MD Diagnoses Present on Admission Past Medical History: Diagnosis Date ??? Acute pancreatitis ??? Ascites ??? Diabetes mellitus (CMS Dx) ??? Esophageal varices with bleeding (CMS Dx) ??? GERD (gastroesophageal reflux disease) ??? Hepatic encephalopathy (CMS Dx) ??? Hypertension ??? 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 Vitamin D deficiency Discharge Diagnoses Active Hospital Problems Diagnosis Date Noted ??? Liver transplant candidate [Z76.82] 10/07/2017 ??? Liver transplanted (CMS Dx) [Z94.4] Resolved Hospital Problems Diagnosis Date Noted Date Resolved No resolved problems to display. Operations/Procedures Performed (include dates) Surgeries: Surgical/Procedural Cases on this Admission Case IDs Date Procedure Surgeon Location Status [id number] 10/08/17 TRANSPLANT LIVER David Mendenhall MD OR [facility] Lines and tubes: Patient Lines/Drains/Airways Status Active Line / PIV Line Name: Placement date: Placement time: Site: Days: Peripheral IV 10/24/17 Right Antecubital 10/24/17 1300 Antecubital 2 Other Procedures / Pertinent Imaging: US Liver Duplex - 10/09/17 Right, main and left hepatic arteries demonstrate normal wave forms. The resistive indices in the main hepatic artery is 0.77, the right hepatic artery is 0.68-0.83, and the left hepatic artery is 0.74-0.8. IMPRESSION: Abdomen: Normal sonographic appearance of the transplant liver. Liver duplex: Mildly turbulent flow within the main portal vein. Normal directional flow with resistive indices as detailed above. CT Head - 10/09/17 IMPRESSION: No acute intracranial abnormality. MRI Head - 10/10/17 IMPRESSION: Moderately limited study with no ischemic changes. Questionable hazy areas of hyperintense T2 signal in the periventricular white matter, likely chronic, no definite acute finding noted. I have personally reviewed the images and I agree with this report. US Liver Duplex - 10/13/17 The visualized portions of the aorta and IVC are normal in caliber and demonstrate internal flow. Iliotibial flow within the main portal vein, with a velocity of 45.6 cm/s (previously 150.9 cm/s). Resistive indices range for the main hepatic artery is 0.70-0.75 (previously 0.77), the right hepatic artery is 0.71 (0.68-0.83). The left hepatic artery RI was not calculated, however its waveform is normal. IMPRESSION: ABDOMEN: 1. 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 2. Small fluid collection within the subhepatic recess. LIVER DUPLEX: 1. Mild turbulent flow within the main portal vein. 2. Normal directional flow and resistive indices, as detailed above. CT Abd/Pel/Chest - 10/20/17 IMPRESSION: Postsurgical changes of liver transplant without loculated perigraft or intraabdominal fluid collections. Small volume of pelvic ascites and diffuse body wall edema compatible with anasarca. IMPRESSION: Multifocal dependent airspace opacity may represent atelectasis or pneumonia. NM Pulmonary V-Q - 10/24/17 IMPRESSION: No segmental perfusion defects to suggest pulmonary embolism. CT Chest - 10/26/17 IMPRESSION: 1. Interval improvement in the bibasilar groundglass and dependent consolidative opacities, favoredto represent atelectasis. 2. Findings suggestive of underlying anemia. Consider correlation with hemoglobin levels. 3. Mild cardiomegaly. 4. Borderline enlargement of the central pulmonary arteries, which may be seen in the setting of pulmonary hypertension. Consulting Services (include reason) SICU Pulmonology PICC team Neurology Infectious Disease Diabetes Education PT/OT Social Work Substitute Crossing Guard Allergies Allergies Allergen Reactions ??? Codeine ??? Dilaudid [Hydromorphone] Other (See Comments) Hallucinations ??? Flexeril [Cyclobenzaprine] Discharge Medications Medication List TAKE these medications, which are NEW Quantity/Refills aspirin 81 MG chewable tablet Chew 1 tablet (81 mg total) by mouth daily with breakfast. Quantity: 30 tablet Refills: 5 blood sugar diagnostic Strp Use to test blood sugar up to 4 times a day. Diagnosis for use: E 9.65. For use with One Touch Verio meters. Quantity: 150 strip Refills: 5 blood-glucose meter [facility] Commonly known as: ONETOUCH VERIO SYSTEM Use as instructed. Quantity: 1 each Refills: 0 * cycloSPORINE modified 100 MG capsule Commonly known as: (NEORAL/GENGRAF) Take 2 capsules (200 mg total) by mouth 2 times a day. Quantity: 120 capsule Refills: 11 * cycloSPORINE modified 25 MG capsule Commonly known as: NEORAL/GENGRAF Take 8 capsules (200 mg total) by mouth 2 times a day. Quantity: 480 capsule Refills: 5 entecavir 1 MG tablet Commonly known as: BARACLUDE Take 1 tablet (1 mg total) by mouth daily. Quantity: 30 tablet Refills: 11 furosemide 40 MG tablet Commonly known as: LASIX Take 1 tablet (40 mg total) by mouth daily for 14 days. Quantity: 14 tablet Refills: 0 insulin lispro 100 unit/mL Inpn Commonly known as: HumaLOG KwikPen Insulin Administer insulin with meals per sliding scale: glucose 150-199=2 u, 200-249=4 u, 250-299=7 u, 300-349=10 u, >349= 12 units Quantity: 15 mL Refills: 5 insulin NPH isoph U-100 human 100 unit/mL (3 mL) Inpn Commonly known as: HumuLIN N NPH Insulin KwikPen Inject subcutaneously 40 units in the AM and 15 units in the PM. Quantity: 15 mL Refills: 5 lancets 33 gauge Misc Commonly known as: ONETOUCH DELViolet Grey LANCETS Use 1 strip as directed 4 times daily before meals and at bedtime. Quantity: 150 each Refills: 5 melatonin 3 mg Tab Take 2 tablets (6 mg total) by mouth at bedtime. Quantity: 30 tablet Refills: 0 mycophenolate 250 mg capsule Commonly known as: CELLCEPT Take 2 capsules (500 mg total) by mouth 2 times a day. Quantity: 120 capsule Refills: 11 nystatin 100,000 unit/mL suspension Commonly known as: MYCOSTATIN Take 5 mLs (500,000 Units total) by mouth 3 times a day. Quantity: 473 mL Refills: 0 oxyCODONE 5 MG immediate release tablet Commonly known as: ROXICODONE Take 1-2 tablets (5-10 mg total) by mouth every 6 hours as needed for up to 56 days. Refills: 0 * pen needle, diabetic 32 gauge x 5/32 Ndle Use as directed to inject insulin 4 times daily. Quantity: 150 each Refills: 5 * pen needle, diabetic 32 gauge x 5/32 Ndle For use with insulin pen. Use as instructed. Quantity: 150 each Refills: 5 predniSONE 5 MG tablet Commonly known as: DELTASONE Take 3 tablets by mouth daily. Quantity: 120 tablet Refills: 5 sulfamethoxazole-trimethoprim 400-80 mg per tablet Commonly known as: BACTRIM,SEPTRA Take 1 tablet by mouth daily. Quantity: 30 tablet Refills: 5 valGANciclovir 450 mg tablet Commonly known as: VALCYTE Take 2 tablets (900 mg total) by mouth daily. Quantity: 60 tablet Refills: 2 * This list has 4 medication(s) that are the same as other medications prescribed for you. Read thedirections carefully, and ask your doctor or other care provider to review them with you. TAKE these medication, which have CHANGED Quantity/Refills carvedilol 25 MG tablet Commonly known as: COREG Take 2 tablets (50 mg total) by mouth 2 times a day with meals. What changed: how much to take Quantity: 120 tablet Refills: 5 hydrALAZINE 10 MG tablet Commonly known as: APRESOLINE Take 1 tablet (10 mg total) by mouth every 8 hours. What changed: when to take this Quantity: 90 tablet Refills: 5 TAKE these medications, which you were ALREADY TAKING Quantity/Refills cloNIDine HCl 0.1 MG tablet Commonly known as: CATAPRES Take 1 tablet (0.1 mg total) by mouth 2 times a day. Quantity: 60 tablet Refills: 5 ergocalciferol 50,000 unit capsule Commonly known as: ERGOCALCIFEROL Take 1 capsule (50,000 Units total) by mouth once a week. Quantity: 4 capsule Refills: 5 esomeprazole 40 MG capsule Commonly known as: NEXIUM Take 1 capsule (40 mg total) by mouth every morning before breakfast. Quantity: 30 capsule Refills: 5 gabapentin 600 MG tablet Commonly known as: NEURONTIN Take 600 mg by mouth 3 times a day. Refills: 0 tiZANidine 4 MG capsule Commonly known as: ZANAFLEX Take 0.5 mg by mouth at bedtime as needed for Muscle spasms. Refills: 0 STOP taking these medications APIDRA SOLOSTAR U-100 INSULIN 100 unit/mL Inpn Generic drug: insulin glulisine U-100 BASAGLAR KWIKPEN U-100 INSULIN 100 unit/mL (3 mL) Inpn Generic drug: insulin glargine BUTRANS 5 mcg/hour Ptwk Generic drug: buprenorphine glimepiride 1 MG tablet Commonly known as: AMARYL lactulose 10 gram/15 mL solution Commonly known as: CHRONULAC losartan 50 MG tablet Commonly known as: COZAAR metFORMIN 500 MG tablet Commonly known as: GLUCOPHAGE rifAXIMin 550 mg Tab tablet Commonly known as: XIFAXAN zinc sulfate 220 (50) mg capsule Commonly known as: ZINCATE Where to Get Your Medications These medications were sent to [facility] [address] [place] [address] [address] [facility] [id number] ?? aspirin 81 MG chewable tablet ?? blood sugar diagnostic Strp ?? blood-glucose meter Misc ?? carvedilol 25 MG tablet ?? cloNIDine HCl 0.1 MG tablet ?? cycloSPORINE modified 100 MG capsule ?? cycloSPORINE modified 25 MG capsule ?? entecavir 1 MG tablet ?? ergocalciferol 50,000 unit capsule ?? esomeprazole 40 MG capsule ?? furosemide 40 MG tablet ?? hydrALAZINE 10 MG tablet ?? insulin lispro 100 unit/mL Inpn ?? lancets 33 gauge Misc ?? melatonin 3 mg Tab ?? mycophenolate 250 mg capsule ?? nystatin 100,000 unit/mL suspension ?? pen needle, diabetic 32 gauge x 5/32 Ndle ?? pen needle, diabetic 32 gauge x 5/32 Ndle ?? predniSONE 5 MG tablet ?? sulfamethoxazole-trimethoprim 400-80 mg per tablet ?? valGANciclovir 450 mg tablet Information about where to get these medications is not yet available Ask your nurse or doctor about these medications ?? insulin NPH isoph U-100 human 100 unit/mL (3 mL) Inpn ?? oxyCODONE 5 MG immediate release tablet Discharge Exam Gen: NAD Neuro: improved mental status, answers questions CV: RRR Resp: nonlabored, CTAB Abd: soft, approp TTP, incision with raheel c/d/i Ext: WWPx4, SCDs Skin: warm and dry Reason for Admission Leoncio Rollins is a 42 y.o. 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 Other comorbidities included esophageal varices, s/p TIPS procedure, hepatic encephalopathy, DM, HTN, and GERD. MELD 25 at time of transplant. Donor was PHS high risk. Cold ischemia time was 379 minutes. Hospital Course Active Hospital Problems Diagnosis Date Noted ??? Liver transplant candidate [Z76.82] 10/07/2017 ??? Liver transplanted ([facility] Dx) [Z94.4] Resolved Hospital Problems Diagnosis Date Noted Date Resolved No resolved problems to display. HEPATOLOGY - patient underwent liver transplant on day of admission (10/08/17). Whole organ placed in piggyback fashion with 4cm cavo-cavostomy in side to side fashion for IVC anastomosis. See separate operative note for details. Operation complicated by esophageal varices, TIPS procedure, and hepatic encephalopathy. LFT's continued to trend down throughout admission, and were stable at discharge:AST/ALT 13/19; AlkPhos 65; Tbili 0.8. RENAL - Patient had a slight bump in creatinine post-operatively, likely due to aggressive diuresiswith fluid overload, which trended down back to his baseline of ~1.4-1.6. Discharge renal function:Creatinine 1.65; UOP around 2-3L/day. NEURO/PAIN - patient placed on Dilaudid GI ASST once extubated, then transitioned to prn IV Dilaudid and oral oxycodone. CV - No acute issues. Patient was HDS throughout admission. Pt with h/o HTN, Clonidine 0.1 BID, Hydralazine 10 mg TID, and Coreg 50 mg BID restarted. PULM - Patient remained intubated upon transfer to SICU following liver transplant and was extubated on POD#1. Patient required oxygen post-operatively. Pulmonology was consulted who felt his hypoxemia was multifactorial: fluid overload (+30 lbs from baseline), post-op bibasilar atelectasis, and morbid obesity. V/Q scan did not reveal any evidence of acute or chronic PE's. Patient was aggressively diuresed with Lasix 40 mg daily, which he responded well to and was discharged on. We did obtain results of prior sleep study at [facility] in [place], which per Pulmonology, revealed no JC during non-REM sleep: Apnea-Hypopnea index at 3.1. But does have significant isolated REM onset sleep apnea: AHI = 20. Lowest O2 sat 86%. Pulmonology recommend a repeat sleep study/CPAP titration after discharge, which the patient would like to have done at [facility] in [place] and to f/u w/ sleep program. Patient was discharged on continuous oxygen, as he was still de-sating to<88% on walk test. No further issues at discharge. ID - patient received timothy-operative ceftriaxone as per protocol. Patient was initiated on Nystatin, Bactrim and Valcyte (high risk) for ID prophylaxis. CMV status was pos/neg (donor/recipient) and EBV status was pend/pos (donor/recipient). Donor was HepBNAT+, therefore patient is on lifelong Enteca vir prophylaxis. IMMUNOSUPPRESSION - Patient initiated on Cellcept and steroid taper as per protocol. Patient's creatinine bumped to >2 x two, therefore renal-sparing protocol with Thymo was initiated (patient received just one dose of Thymo). After discussion with the team, it was decided to start Prograf earlyon POD#4 with levels monitored daily. Patient became altered post-operatively and developed a severe tremor, therefore Tacro was stopped on POD#12 and Cyclosporine was started on POD#15. Discharge immunosuppression: Cellcept 500 mg BID; Prednisone 15 mg daily (starting 3/18); last Cyclo level = 58 on 3/15; dose change on 3/14 to 200 mg BID. FEN/GI - patient placed on IVF post-op which were weaned as diet advanced. Patient initiated on clears and advanced as tolerated. Electrolytes replaced prn. Pt was sent home on the following bowel regimen: Miralax and Colace. [facility] - PT/OT evaluated patient and recommended home with PT/OT. - Anders d/c'd on POD#3 and patient voided spontaneously. ENDO - patient on insulin drip in OR and transitioned to SSI prior to transfer to the floor. Patient and family met w/ certified lactation educator prior to discharge. Patient discharge on following regimen: NPH 40 units in the AM, 15 units in the PM; high dose SSI with meals. HEME - Blood products intraoperatively: Allogenic PRBC units: 2, Autologous Cell Saver: 1.25 liters, FFP: 4, Platelets: 1. Pt's CBC's monitored daily, and remained stable throughout admission. PSYCH - Patient became altered post-operatively, and was unable to speak for about 1-[address] Head and MRI negative for any acute process. Without much intervention, patient slowly started to come around and was alert and oriented by POD#4-5. No other acute issues. PROPHYLAXIS - patient initiated on SQ heparin and had SCDs on in bed for DVT prophylaxis. DISPO - patient was discharged to home with home care PT/OT arranged as per PT/OT recommendations. Labs to be drawn qMon/Thurs. Patient and family received post-transplant education from distance education coordinator as well as medication teaching from transplant pharmacist. At time of discharge, the patient was tolerating oral food and hydration, voiding spontaneously, had return of bowel function, was ambulating without difficulty, and pain was controlled on oral medications. The patient was determined to be suitable for discharge and the patient felt comfortable with that decision. Patient was discharged in good condition. Condition on Discharge 1. Functional Status: mildly impaired Describe limitations, if any: need home PT/OT 2. Mental Status: Alert/Oriented Describe limitations, if any: none 3. Dietary Restrictions / Tube Feeding / TPN Diabetic Diet Boost Glucose Control (diabetic supplement) TID 4. Discharge specific orders: RESPIRATORY: Oxygen per nasal canula at 1-3L/min. continuous. Wean oxygen for O2 saturations greater than 90%. Oxygen at 3 LPM continuous per nasal cannula with concentrator, portable, and contents. LAB DRAWS: Please collect CBC w/diff, renal panel, magnesium, hepatic function panel, and cyclosporine level (prior to am cyclo dose) every /. Fax results to liver transplant clinic at [phone]. 5. Core measures followed: (if this is a core measure patient) Discharge Weight: (!) 283 lb 8 oz (128.6 kg) Disposition Home with assistance Home with supervision Home with Home Health Follow-Up Appointments [facility] Liver Transplant Office [address] [place] [address] On 10/31/2017 @ 8:45 AM, in the transplant clinic, 3rd floor of the outpatient building. Signed: SHIRA FENG CNP 10/26/2017, 1:10 PM Cosigned by Gennaro Reyes MD at 10/31/2017 3:46 PM EDT * RADHA Nielsen, PARTY DEMONSTRATOR - 10/27/2017 8:50 AM EDT [facility] Post-Liver Transplant Financial Services Representative Discharge Summary Patient name: Leoncio Rollins Patient : 1975 Age: 42 y.o. Gender: male Patient emergency contact: Extended Emergency Contact Information Primary Emergency Contact: Kym Rollins Address: [address] [address] [facility] [place] Relation: Spouse Secondary Emergency Contact: Kimberly Rollins [facility] Relation: Mother Attending provider: David Mendenhall MD Primary care physician: Edgar Fournier MD The MD has indicated that the patient is ready for discharge. Leoncio Rollins was referred and accepted for home health care services through [facility] [phone]. Post-Liver Transplant patient will receive halfway for lab draws Mondays and before 8:30am. Lab results will be provided to [facility] same day. Patient will also received home PT and OT. Patient will receive oxygen supplies through [facility]. Patient will be provided rolling walker and portable oxygen supply prior to discharge today. The patient will be transported by Kym Rollins/spouse at time of discharge today Monday10/27/17. Transfer Mode/Level of Care: Family MILIND/SANAM 7000 Completed: N/A DC Summary and VIMAL have been faxed to facility. The plan has been reviewed: Patient/Family Informed of Discharge Plan: Yes Plan Reviewed With Patient, Family, or Significant Other: Yes Patient and or family are aware and in agreement with the discharge plan: Yes Family Member Name and Relationship Notified at Discharge: Kym Rollins Family Contact Number: [phone] Plan reviewed with MD and other members of the health care team: Yes Care Plan Completed: Yes No further SW needs. This plan has been reviewed with the multi-disciplinary team. KIM Davey [phone] documented in this encounter Discharge Instructions * Discharge Instructions* Shira Feng CNP - 10/27/2017 12:09 PM EDT Activity: As tolerated. Get out of bed and walk frequently. You should not drive for 2 weeks from your surgery date, and should be off all narcotic pain medications prior to driving. You should not lift over 10# for 6 weeks from your surgery date. Return to work: TBD in clinic follow up appointments. Diet: Diabetic diet For more information on healthy eating, visit our Transplant Substitute Crossing Guard's blog: [email or web address] Drain/Dressing/Wound Care: [facility] will be removed in clinic approximately 3-4 weeks from your surgery date. You may shower on day of discharge. Wash incision gently with soap and water and pat dry. Do not soak incisions in bath water or swim for at least two weeks. Drainage from incision is common in first few weeks, but call if you have any questions or concerns. Medications: Please call if you have ANY questions about your medications. Please take sure that your immunosuppression medications are taken as directed by the medical staff(ie, timing is very important). Please discuss any new medications with the transplant team prior to starting. Tylenol is OK to take for pain control, but dose should be kept under 2 gm/day. Please discuss withyour child care coordinator if you have any question about appropriate dose to take. Other Instructions: Call post-liver transplant clinic with questions [phone] or call [facility] at [phone] and ask for the liver distance education coordinator economic forecaster if you experience any of the following: - Worsening pain, nausea, or vomiting not reieved by medications - Temperature greater than 101.5 F or fever/chills - Redness around incision, drainage from incision, or wound edge separation - Chest pain, shortness of breath, persistent dizziness, swelling in one or both legs - Blood sugars consistently above 150 or one reading above 300 - Weight gain of greater than 5# in 24 hours Follow-Up Appointment: You will need labs every Monday/ - your coordinator will review the results with you and make any necessary medication adjustments. Lab Location: [facility] will draw your labs every Monday/10/31/17 @ 8:45 AM, in the transplant clinic in the outpatient building on the 3rd floor. HOME HEALTH CARE INSTRUCTIONS You are set up to receive home health care from [facility] ([phone]) for Group Home, PT/OT and Lab Draws every Monday and by 8:30 AM also [facility] ([phone]) for Home Oxygen and a rolling walker . Your home health care agency should contact you within 24 hours after discharge to set up your first home care visit. If you do not hear from them, immediately contact your home care agency to set up your first home health care visit. If you have any questions or concerns pertaining to home health care, please do not hesitate to contact your home care agency as they are prepared to address any home care issues or concerns that may arise. documented in this encounter Medications at Time of Discharge aspirin 81 MG chewable tablet Chew 1 tablet (81 mg total) by mouth daily with breakfast. 30 tablet 5 8 oxyCODONE (ROXICODONE) 5 MG immediate release tabletIndications :Liver transplanted (CMS-HCC) Take 1-2 tablets (5-10 mg total) by mouth every 6 hours as needed for up to 56 days. 8 12/23/19 18 blood sugar diagnostic Strp Use to test blood sugar up to 4 times a day. Diagnosis for use: E 9.65. For use with One Touch Verio meters. 150 strip 8 03/18/20 22 blood-glucose meter (ONETOUCH VERIO SYSTEM) [facility] Use as instructed. 1 each 8 03/18/20 22 carvedilol (COREG) 25 MG tablet Take 2 tablets (50 mg total) by mouth 2 times a day with meals. 120 tablet 8 03/12/20 20 cloNIDine HCl (CATAPRES) 0.1 MG tablet Take 1 tablet (0.1 mg total) by mouth 2 times a day. 60 tablet 8 11/01/19 18 cycloSPORINE modified (,NEORAL/GENGRAF, ) 100 MG capsule Take 2 capsules (200 mg total) by mouth 2 times a day. 120 capsule 8 11/15/19 18 cycloSPORINE modified (NEORAL/GENGRAF) 25 MG capsule Take 8 capsules (200 mg total) by mouth 2 times a day. 480 capsule 8 11/08/19 18 entecavir (BARACLUDE) 1 MG tablet Take 1 tablet (1 mg total) by mouth daily. 30 tablet 8 10/27/19 19 ergocalciferol (ERGOCALCIFEROL) 50,000 unit capsule Take 1 capsule (50,000 Units total) by mouth once a week. 4 capsule 8 02/27/20 18 esomeprazole (NEXIUM) 40 MG capsule Take 1 capsule (40 mg total) by mouth every morning before breakfast. 30 capsule 8 02/29/20 18 furosemide (LASIX) 40 MG tablet Take 1 tablet (40 mg total) by mouth daily for 14 days. 14 tablet 8 11/08/19 18 gabapentin (NEURONTIN) 600 MG tablet Take 900 mg by mouth 3 times a day. 12/05/19 18 hydrALAZINE (APRESOLINE) 10 MG tablet Take 1 tablet (10 mg total) by mouth every 8 hours. 90 tablet 8 11/01/19 18 insulin lispro (HUMALOG KWIKPEN INSULIN) 100 unit/mL InPn Administer insulin with meals per sliding scale: glucose 150-199=2 u, 200-249=4 u, 250-299=7 u, 300-349=10 u, >349= 12 units 15 mL 8 05/07/20 18 insulin NPH isoph U-100 human (HUMULIN N NPH INSULIN KWIKPEN) 100 unit/mL (3 mL) InPn Inject subcutaneously 40 units in the AM and 15 units in the PM. 15 mL 8 11/11/19 18 lancets (ONETOUCH DELICA LANCETS) 33 gauge [facility] Use 1 strip as directed 4 times daily before meals and at bedtime. 150 each 8 03/18/20 22 melatonin 3 mg Tab Take 2 tablets (6 mg total) by mouth at bedtime. 30 tablet 8 12/06/19 18 mycophenolate (CELLCEPT) 250 mg capsule Take 2 capsules (500 mg total) by mouth 2 times a day. 120 capsule 8 04/23/20 18 nystatin (MYCOSTATIN) 100,000 unit/mL suspension Take 5 mLs (500,000 Units total) by mouth 3 times a day. 473 mL 8 11/08/19 18 pen needle, diabetic 32 gauge x 5/32 Ndle Use as directed to inject insulin 4 times daily. 150 each 5 8 03/18/20 22 pen needle, diabetic 32 gauge x 5/32 Ndle For use with insulin pen. Use as instructed. 150 each 5 8 11/11/19 20 predniSONE (DELTASONE) 5 MG tablet Take 3 tablets by mouth daily. 120 tablet 5 8 11/08/19 18 sulfamethoxazole- trimethoprim (BACTRIM,SEPTRA) 400-80 mg per tablet Take 1 tablet by mouth daily. 30 tablet 5 8 11/15/19 18 tiZANidine (ZANAFLEX) 4 MG capsule Take 4 mg by mouth at bedtime as needed for Muscle spasms. 11/24/19 18 valGANciclovir (VALCYTE) 450 mg tablet Take 2 tablets (900 mg total) by mouth daily. 60 tablet 2 8 11/24/19 18 documented as of this encounter Progress Notes * Ronald Lucia, RXT - 10/27/2017 3:00 PM EDT Transplant Pharmacy Note Discharge Medication Education, Evaluation and Transition Name: Leoncio Rollins ?? Discharge prescriptions were dispensed from [facility] and date of Rx filling was confirmed to match date of discharge. ?? The patient was given a completed medication instruction card, according to discharge instructions (see medication list below) ?? Medication schedule was adjusted to correlate with outpatient lab draws: 0900/2100 for most liver transplants with home health care labs; corresponding to upcoming clinic appointment times for kidney/pancreas transplants getting blood draws at clinic) ?? A pillbox was filled with the patient???s medications based on these instructions for use at home. ?? Reviewed discharge medications and importance of adherence with patient/ ?? Information reviewed includes: ?? Brand and generic names ?? Strength(s) supplied ?? Dose/frequency ?? Indication ?? Expected duration ?? Other drug-specific clinical pearls ?? Importance of adherence in preventing rejection ?? Risks of defects (women < 50 yo with reproductive potential only), malignancies secondary to immunosuppression ?? Assessment of patient's capabilities to self-medicate: ?? Personal assessment of patient's medication knowledge: Patient had appropriate baseline knowledge of his medications ?? Expected caregiver involvement?: will be involved in management of patient's medications ?? Need for additional education in clinic?: Patient and would benefit from continued education and reinforcement of new medications. They are both engaged and willing to learn. ?? Future medications to be obtained from, if known (select one): ?? Other mail-order specialty pharmacy for Valcyte ?? [facility] for other medications ?? Financial concerns (if any): None discussed Current Discharge Medication List START taking these medications Details aspirin 81 MG chewable tablet Chew 1 tablet (81 mg total) by mouth daily with breakfast. Qty: 30 tablet, Refills: 5 blood sugar diagnostic Strp Use to test blood sugar up to 4 times a day. Diagnosis for use: E 9.65.For use with One Touch Verio meters. Qty: 150 strip, Refills: 5 blood-glucose meter (ONETOUCH VERIO SYSTEM) [facility] Use as instructed. Qty: 1 each, Refills: 0 !! cycloSPORINE modified (,NEORAL/GENGRAF,) 100 MG capsule Take 2 capsules (200 mg total) by mouth 2 times a day. Qty: 120 capsule, Refills: 11 !! cycloSPORINE modified (NEORAL/GENGRAF) 25 MG capsule Take 8 capsules (200 mg total) by mouth 2 times a day. Qty: 480 capsule, Refills: 5 entecavir (BARACLUDE) 1 MG tablet Take 1 tablet (1 mg total) by mouth daily. Qty: 30 tablet, Refills: 11 furosemide (LASIX) 40 MG tablet Take 1 tablet (40 mg total) by mouth daily for 14 days. Qty: 14 tablet, Refills: 0 insulin lispro (HUMALOG KWIKPEN INSULIN) 100 unit/mL InPn Administer insulin with meals per slidingscale: glucose 150-199=2 u, 200-249=4 u, 250-299=7 u, 300- 349=10 u, >349= 12 units Qty: 15 mL, Refills: 5 insulin NPH isoph U-100 human (HUMULIN N NPH INSULIN KWIKPEN) 100 unit/mL (3 mL) InPn Inject subcutaneously 40 units in the AM and 15 units in the PM. Qty: 15 mL, Refills: 5 lancets (ONETOUCH DELICA LANCETS) 33 gauge Misc Use 1 strip as directed 4 times daily before meals and at bedtime. Qty: 150 each, Refills: 5 melatonin 3 mg Tab Take 2 tablets (6 mg total) by mouth at bedtime. Qty: 30 tablet, Refills: 0 mycophenolate (CELLCEPT) 250 mg capsule Take 2 capsules (500 mg total) by mouth 2 times a day. Qty: 120 capsule, Refills: 11 nystatin (MYCOSTATIN) 100,000 unit/mL suspension Take 5 mLs (500,000 Units total) by mouth 3 times a day. Qty: 473 mL, Refills: 0 oxyCODONE (ROXICODONE) 5 MG immediate release tablet Take 1-2 tablets (5-10 mg total) by mouth every 6 hours as needed for up to 56 days. Associated Diagnoses: Liver transplanted ([facility] Dx) !! pen needle, diabetic 32 gauge x 5/32 Ndle Use as directed to inject insulin 4 times daily. Qty: 150 each, Refills: 5 !! pen needle, diabetic 32 gauge x 5/32 Ndle For use with insulin pen. Use as instructed. Qty: 150 each, Refills: 5 predniSONE (DELTASONE) 5 MG tablet Take 3 tablets by mouth daily. Qty: 120 tablet, Refills: 5 sulfamethoxazole-trimethoprim (BACTRIM,SEPTRA) 400-80 mg per tablet Take 1 tablet by mouth daily. Qty: 30 tablet, Refills: 5 valGANciclovir (VALCYTE) 450 mg tablet Take 2 tablets (900 mg total) by mouth daily. Qty: 60 tablet, Refills: 2 !! - Potential duplicate medications found. Please discuss with provider. CONTINUE these medications which have CHANGED Details carvedilol (COREG) 25 MG tablet Take 2 tablets (50 mg total) by mouth 2 times a day with meals. Qty: 120 tablet, Refills: 5 cloNIDine HCl (CATAPRES) 0.1 MG tablet Take 1 tablet (0.1 mg total) by mouth 2 times a day. Qty: 60 tablet, Refills: 5 ergocalciferol (ERGOCALCIFEROL) 50,000 unit capsule Take 1 capsule (50,000 Units total) by mouth once a week. Qty: 4 capsule, Refills: 5 esomeprazole (NEXIUM) 40 MG capsule Take 1 capsule (40 mg total) by mouth every morning before breakfast. Qty: 30 capsule, Refills: 5 hydrALAZINE (APRESOLINE) 10 MG tablet Take 1 tablet (10 mg total) by mouth every 8 hours. Qty: 90 tablet, Refills: 5 CONTINUE these medications which have NOT CHANGED Details gabapentin (NEURONTIN) 600 MG tablet Take 600 mg by mouth 3 times a day. tiZANidine (ZANAFLEX) 4 MG capsule Take 0.5 mg by mouth at bedtime as needed for Muscle spasms. STOP taking these medications buprenorphine (BUTRANS) 5 mcg/hour PTWK Comments: Reason for Stopping: glimepiride (AMARYL) 1 MG tablet Comments: Reason for Stopping: insulin glargine (BASAGLAR KWIKPEN) 100 unit/mL (3 mL) InPn Comments: Reason for Stopping: lactulose (CHRONULAC) 10 gram/15 mL solution Comments: Reason for Stopping: losartan (COZAAR) 50 MG tablet Comments: Reason for Stopping: metFORMIN (GLUCOPHAGE) 500 MG tablet Comments: Reason for Stopping: rifAXIMin (XIFAXAN) 550 mg Tab tablet Comments: Reason for Stopping: zinc sulfate (ZINCATE) 220 (50) mg capsule Comments: Reason for Stopping: insulin glulisine (APIDRA SOLOSTAR) 100 unit/mL InPn Comments: Reason for Stopping: Ronald Lucia, PharmD Candidate 2018 * Margoth Taylor - 10/27/2017 9:01 AM EDT 10/27/17 0900 24 HR Nutrition Analysis Totals 24 HR Total Calories (kcals) 0 kcals 24 Hr Total Protein (g) 0 g no meal tickets saved for 10/26/17 calorie count Margoth CRAFT LD Pager # [phone] * Kesha Servin RN - 10/27/2017 7:54 AM EDT CMU remote monitoring orders are reconciled at this time. Kesha Servin RN * Tam Neil MD - 10/27/2017 6:40 AM EDT Transplant Surgery Progress Note Patient: Leoncio Rollins Admit Date: 10/07/2017 OR Date: 10/08/2017 Subjective: No acute events overnight. HDS. Pain controlled. Stable on RA. Ambulation improving. Objective: Vitals: Temp: [98 ??F (36.7 ??C)-98.8 ??F (37.1 ??C)] 98 ??F (36.7 ??C) Heart Rate: [72-85] 72 Resp: [16-18] 18 BP: (124-178)/(48-86) 161/79 Date 10/26/17 0700 - 10/27/17 0659 10/27/17 0700 - 10/28/17 0659 Shift 1854-6494 3780-4033 3990-8960 24 Hour Total 3133-4014 9829-1371 6106-9049 24 Hour Total I N T A K E P.O. 240 240 P.O. 240 240 Shift Total (mL/kg) 240 (1.9) 240 (1.9) O U T P U T Urine (mL/kg/hr) 650 (0.6) 1450 (1.4) 2100 Urine 650 1450 2100 Shift Total (mL/kg) 650 (5.1) 1450 (11.3) 2100 (16.4) Weight (kg) 128.6 128.6 128 128 128 128 128 128 Physical Exam: Gen: NAD Neuro: improved mental status, answers questions CV: RRR Resp: nonlabored, CTAB Abd: soft, approp TTP, incision with raheel c/d/i Ext: WWPx4, SCDs Skin: warm and dry Labs: Recent Labs 10/24/17 0725 10/25/17 0812 10/26/17 0644 WBC 6.5 7.9 5.5 HGB 7.1* 7.5* 7.2* HCT 22.0* 22.8* 22.7* PLT 199 263 269 Recent Labs 10/24/17 1525 10/25/17 0812 10/26/17 0644 NA 140 144 144 K 5.6* 4.9 4.8 CL 102 104 102 CO2 31 31 34* BUN 64* 61* 52* CREATININE 1.71* 1.63* 1.58* GLUCOSE 301* 122* 104* CALCIUM 8.7 9.0 9.0 MG 1.9 1.8 1.9 PHOS 4.4 4.8* 5.4* Recent Labs 10/26/17 0820 10/26/17 1455 10/26/17 1620 10/26/17 1833 10/27/17 0101 10/27/17 0540 POCGMD 137* 352* 388* 346* 266* 186* Recent Labs 10/24/17 1525 10/25/17 0812 10/26/17 0644 AST 11* 14 11* ALT 20 18 16 BILITOT 0.7 0.7 0.7 BILIDIRECT 0.34 0.21 0.22 ALKPHOS 66 61 58 ALBUMIN 2.9* 2.9* 3.0* 3.0* 2.9* 2.9* No results for input(s): INR, PROTIME in the last 72 hours. Current Medications: Scheduled Meds: ??? aspirin 81 mg Oral Daily with breakfast ??? carvedilol 50 mg Oral BID ??? cloNIDine HCl 0.1 mg Oral BID ??? cycloSPORINE modified 200 mg Oral BID7 ??? entecavir 1 mg Oral DAILY 0600 ??? gabapentin 600 mg Oral TID ??? heparin (porcine) 5,000 Units Subcutaneous 3 times per day ??? hydrALAZINE 10 mg Oral 3 times per day ??? insulin lispro 0-10 Units Subcutaneous Nightly (2099) ??? insulin lispro 0-12 Units Subcutaneous TID AC ??? insulin NPH 30 Units Subcutaneous QAM ??? lidocaine 1 patch Transdermal Q24H ??? lidocaine 1 patch Transdermal Q24H ??? melatonin 6 mg Oral Nightly (2099) ??? mycophenolate 500 mg Oral BID ? ? nystatin 500,000 Units Swish & Swallow TID ??? pantoprazole 40 mg Oral DAILY 0600 ??? [START ON 10/29/2017] predniSONE 15 mg Oral Daily 0900 ??? predniSONE 20 mg Oral Daily 0900 ??? sulfamethoxazole-trimethoprim 1 tablet Oral Daily 0900 ??? valGANciclovir 900 mg Oral Daily 0900 Continuous Infusions: PRN Meds: acetaminophen, All IV Medications in Normal Saline 0.9%, dextrose 50 % in water (D50W), glucose, ipratropium-albuterol, ondansetron, oxyCODONE OR oxyCODONE, traMADol OR traMADol Assessment/Plan: Leoncio Rollins is a 42 y.o. 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 Plan: - Neuro: pain controlled - Oxycodone, tramadol - melatonin - CV: Hypertension improved - Coreg, clonidine, ASA - Pulm: stable on RA - encourage IS - Pulm c/s: VQ scan normal. 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 - PT/OT recs: home with 24hr supervision - PPx: [facility], SCDs - Dispo: Floor, possible d/c today TAM NEIL MD Transplant Surgery [id number] Pager Cosigned by Gennaro Reyes MD at 10/27/2017 12:15 PM EDT Associated attestation - Gennaro Reyes MD - 10/27/2017 12:15 PM EDT I performed a history and physical exam of the patient and discussed management with the resident on 10/27/2017. I reviewed the resident???s note and agree with the documented findings and plan of care. Immunosuppression reviewed. * Toy Castellon RN - 10/26/2017 8:46 PM EDT CMU reconciliation completed for patient, Leoncio Rollins TOY CASTELLON RN * Sussy Napier, PT - 10/26/2017 4:51 PM EDT Inpatient Physical Therapy Treatment Note Name: Leoncio Rollins :1975 Attending Physician: David Mendenhall MD Admitting Diagnosis: S/P liver transplant ([facility] Dx) [Z94.4] Date: [facility]26/2017 [id number] PT/OT: Pt is 42 y.o. 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 Intubated 09/18, extubated 10/09. Continued AMS, (-) MRI/Head CT.10/24 VQ scan (-), LE dopplers (-) PMH: acute pancreatitis, ascites, DM, GERD, hepatic encephalopathy, HTN, SAL, vitamin D deficiency. Precautions: No limitations Activity level: activity as tolerated Assessment: Leoncio tolerated today's session quite well. He was able to achieve two short term goals and he is demonstrating safe and appropriate mobility to plan for discharge to home with support from his and family. Recommendations: Recommendation: Home with 24 hour supervision/assistance, No skilled PT AM-PAC 6 Clicks Basic Mobility Inpatient Short Form: PT 6 Clicks Score: 23 Equipment Recommended: Rolling Walker, Patient has needed mobility DME Mobility Recommendations for Staff: Patient ambulates in hallway with supervision, rolling walker, and gait belt Present Cognitive Status: Patient is oriented (WFL). Patient is alert, appropriate and cooperative. Patient is able to follow all commands. Patient/Family Comments: Patient's verbalizes that she will be providing 24 hour supervision/assistance along with his 3 sons and 2 [id number]. Pain: Patient reports pain in right lower abdomen ; no number stated Pain interventions: repositioned, activity increased and exercise Treatment: Functional Mobility: Sit to stand = Patient transfers from sit to stand with supervision Gait = Patient ambulates 24 ft without assistive device and supervision and 250 ft. X 2 with supervision using rolling walker . Gait deviations include wide base of support, tremors persistant (mild), and mild dyspnea. Stairs = Patient and declined need to complete stair assessment they report he has 3 small steps to enter with rails on both sides. He reports his sons will be able to assist him and he has no concerns about being able to safely manage stairs upon discharge home. Balance: Static sitting = performs independently Static standing = performs with supervision using no assistive device Dynamic standing = performs with supervision using rolling walker Exercises: Seated in recliner B LE's AROM marching and LAQ's x 10 reps Importance of frequent position change and mobility at home, encouraged/educated on use of incentive spirometer several times per day, Positioning: Patient left in chair at end of session, nurse notified, visitor(s) present and call light/ needs left within reach. Chair alarm unchanged from previous setting. Goals: Patient met sit to stand and gait goal(s) this date. Updated/active goals below: To be met by: 10/30/2017 ?? Bed mobility = Patient will transition from supine to sit independently Sit to stand = Patient will transfer from sit to stand with supervision Gait = Patient amb 200' with CGA using RW ?? Long-term goal??(to be met by 11/27/2017): Patient will transition from supine to sit with supervision ? Above goals discussed with patient and family -- Yes. Patient/Family Education: Educated patient and patient's family on the role of physical therapy, goals, plan of care, importance of increased activity and discharge recommendations and fall prevention strategies, including need for supervision/ assistance with OOB activity and use of call light; patient and patient's familyverbalized understanding and demonstrated understanding. ?? Plan: Continue plan of care, at least 3 time(s) per week. The plan of care and recommendations assesses the patient's and/or caregiver's readiness, willingness, and ability to provide or support functional mobility and ADL tasks as needed upon discharge. Signed: Sussy Napier PT, DPT, PT Equine Pharmacology Technician [facility] Pager Number: [phone] Department Number: [phone] Mon/Wed/Th/Fri 07:30-18:00 Patient class: Inpatient Start Time: 1400 Stop Time: 1424 Time Calculation (min): 24 min Units Rendered: $Gait/Mobility: 8-22 mins $Therapeutic Exercise: 8-22 mins PMH: Past Medical History: Diagnosis Date ??? Acute pancreatitis ??? Ascites ??? Diabetes mellitus (CMS Dx) ??? Esophageal varices with bleeding (CMS Dx) ??? GERD (gastroesophageal reflux disease) ??? Hepatic encephalopathy (CMS Dx) ??? Hypertension ??? 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 Vitamin D deficiency PSH: Past Surgical History: Procedure Laterality Date ??? LIVER TRANSPLANTATION N/A 10/08/2017 Procedure: TRANSPLANT LIVER; Surgeon: David Mendenhall MD; Location: OR; Service: Transplant; Laterality: N/A; ??? TIPS PROCEDURE 10/2016 ??? TIPS Revision 04/2017 * Shira Feng CNP - 10/26/2017 2:19 PM EDT Patient requires home oxygen. At rest on room air, patient desaturates to 91%. If 88% or below, no further testing or data is needed. If the patient desaturates above 88% while at rest the following will need to be noted: 94% Sa02 on room air at rest 79% Sa02 on room air with exertion (record the lowest reading obtained) * Needs to be 88% or below 96% Sa02 on 3 Liters oxygen continuing with exertion to show improvement Shira Feng CNP 10/26/17 * Judi Johnson - 10/26/2017 1:22 PM EDT 10/26/17 1300 24 HR Nutrition Analysis Totals 24 HR Total Calories (kcals) 602 kcals (29% Kcal needs met) 24 Hr Total Protein (g) 25 g (24% Pro needs met) Established Estimated Nutrition Needs: Needs based On: IBW 69.5kg Kcals/day: (30kcal/kg) 2085kcals Protein g/day: (1.5-2.0g/kg)104-139g Carbohydrate g/day: (45% of kcals) 235g Fluid ml/day: 1ml/kcal or as per MD 1 meal and 1 Boost DM supplement consumed from 10/25/17. Judi Johnson, DT [phone] * Madelyn Kwok, RD - 10/26/2017 9:45 AM EDT TXP-follow up [facility] Medical Nutrition Therapy Follow-Up Diet Order/Nutrition Support: Consistent carbohydrate 1900-2100kcals, Boost pudding TID, Boost glucose control TID Pertinent Information: Mr. Rollins is a 42 y.o. 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 Pt is for CT of the chest today. Oxygen requirements down to 1L and off during the day. Pt continues to do well with good appetite and PO intake and is consuming 100% of meals. Pt states he drinks 3 Boost/day, recommended pt only drink Boost as needed as he is consuming 3 good meals/day. Pt was resistant as he states he enjoys the Boost. Pt denies any N/V or abd pain at this time and reports +BM.Phos 5.4 noted. Admit Weight: 256lbs Current Weight: 283lbs Scheduled Meds: ??? aspirin 81 mg Oral Daily with breakfast ??? carvedilol 50 mg Oral BID ??? cloNIDine HCl 0.1 mg Oral BID ??? cycloSPORINE modified 200 mg Oral BID7 ??? entecavir 1 mg Oral DAILY 0600 ??? gabapentin 600 mg Oral TID ??? heparin (porcine) 5,000 Units Subcutaneous 3 times per day ??? hydrALAZINE 10 mg Oral 3 times per day ??? insulin lispro 0-10 Units Subcutaneous Nightly (2099) ??? insulin lispro 0-12 Units Subcutaneous TID AC ??? lidocaine 1 patch Transdermal Q24H ??? melatonin 6 mg Oral Nightly (2099) ??? mycophenolate 500 mg Oral BID ? ? nystatin 500,000 Units Swish & Swallow TID ??? pantoprazole 40 mg Oral DAILY 0600 ??? [START ON 10/29/2017] predniSONE 15 mg Oral Daily 0900 ??? predniSONE 20 mg Oral Daily 0900 ??? sulfamethoxazole-trimethoprim 1 tablet Oral Daily 0900 ??? valGANciclovir 900 mg Oral Daily 0900 Continuous Infusions: PRN Meds:acetaminophen, All IV Medications in Normal Saline 0.9%, dextrose 50 % in water (D50W), glucose, ipratropium-albuterol, ondansetron, oxyCODONE OR oxyCODONE, traMADol OR traMADol Pertinent Labs: Lab Results Component Value Date CREATININE 1.58 (H) 10/26/2017 BUN 52 (H) 10/26/2017 NA 144 10/26/2017 K 4.8 10/26/2017 CL 102 10/26/2017 CO2 34 (H) 10/26/2017 Lab Results Component Value Date CALCIUM 9.0 10/26/2017 PHOS 5.4 (H) 10/26/2017 Lab Results Component Value Date MG 1.9 10/26/2017 Lab Results Component Value Date ALKPHOS 58 10/26/2017 ALT 16 10/26/2017 AST 11 (L) 10/26/2017 BILITOT 0.7 10/26/2017 ALBUMIN 2.9 (L) 10/26/2017 ALBUMIN 2.9 (L) 10/26/2017 BILIDIRECT 0.22 10/26/2017 PROT 5.3 (L) 10/26/2017 No results found for: PREALBUMIN Lab Results Component Value Date GLUCOSE 104 (H) 10/26/2017 Component Value Date/Time POCGMD 137 (H) 10/26/2017 0820 POCGMD 121 (H) 10/26/2017 0534 POCGMD 202 (H) 10/25/2017 2353 POCGMD 204 (H) 10/25/2017 2004 POCGMD 122 (H) 10/25/2017 1423 POCGLU 225 (H) 10/08/2017 1232 POCGLU 218 (H) 10/08/2017 1138 POCGLU 167 (H) 10/08/2017 1109 POCGLU 178 (H) 10/08/2017 1004 POCGLU 176 (H) 10/08/2017 0903 Lab Results Component Value Date HGBA1C 5.4 10/09/2017 Lab Results Component Value Date WBC 5.5 10/26/2017 98.5 ??F (36.9 ??C) (Oral) Ht Readings from Last 1 Encounters: 10/10/17 5' 7 (1.702 m) Wt Readings from Last 3 Encounters: 10/25/17 (!) 283 lb 8 oz (128.6 kg) 10/02/17 (!) 251 lb (113.9 kg) 08/31/17 (!) 255 lb (115.7 kg) Body mass index is 44.4 kg/m??. Skin: Abd incision Established Estimated Nutrition Needs: Needs based On: IBW 69.5kg Kcals/day: (30kcal/kg) 2085kcals Protein g/day: (1.5-2.0g/kg)104-139g Carbohydrate g/day: (45% of kcals) 235g Fluid ml/day: 1ml/kcal or as per MD Nutrition Diagnosis: Increased kcal/protein needs ?? Related To: Increased demand for nutrients As Evidenced By: Recent liver transplant, medically complex ?? Nutrition Diagnosis: Food- and nutrition-related knowledge deficit Related to:?? Exposure to new information As evidenced by: Recent liver transplant and subsequent need for medical nutrition therapy education ?? Established Nutrition Intervention: Change Current Diet Order, Add/Change Medical Food Supplement/Snack, Monitor PO Intake/Tolerance and Education/Counseling: post txp nutrition ??Established Goals: ??Total energy intake improved as evidenced by PO intake at least 50-75% of meals/supplements/snacks within -1-3??days and Voices/demonstrates knowledge of post txp??education/counseling ??Goals: Met, Ongoing Nutrition Status Classification: Moderately Compromised Coordination of Nutrition Care: Currently there are no further barriers to discharge from a nutrition perspective and will further assess patient on an as needed basis as identified by the transplantmultidisciplinary team This information has been communicated to the transplant multidisciplinary team Follow up: per policy while inpatient. If patient is discharged dietitian will be available for consultation on an as needed basis as identified by the multidisciplinary team. Nutrition Discharge Planning: Discharge plan of care for nutrition ongoing pending clinical course. Additional Recommendation(s) to Physicians: 1. Continue current diet. If phos remains elevated may want to consider low phos diet. 2. Continue to monitor and encourage PO intake Madelyn Kwok RD, LD Pager#[phone] * Fox Han MD - 10/26/2017 6:37 AM EDT Transplant Surgery Progress Note Patient: Leoncio Rollins Admit Date: 10/07/2017 OR Date: 10/08/2017 Subjective: No acute events overnight. HDS. Pain controlled. Tremors improved. O2 down to 1L NC. Off during day. Objective: Vitals: Temp: [97.9 ??F (36.6 ??C)-98.4 ??F (36.9 ??C)] 98.4 ??F (36.9 ??C) Heart Rate: [59-88] 59 Resp: [16-18] 18 BP: (133-176)/(64-102) 176/90 Date 10/25/17 0700 - 10/26/17 0659 10/26/17 0700 - 10/27/17 0659 Shift 8808-5230 4498-2029 1618-3333 24 Hour Total 9590-9278 9908-2611 0459-9123 24 Hour Total I N T A K E P.O. 240 240 480 P.O. 240 240 480 Shift Total (mL/kg) 240 (1.8) 240 (1.9) 480 (3.7) O U T P U T Urine (mL/kg/hr) 2450 (2.4) 380 (0.4) 800 3630 Urine 2450 888 236 6058 Stool Stool Occurrence 1 x 1 x Shift Total (mL/kg) 2450 (18.8) 380 (3) 800 (6.2) 3630 (28.2) Weight (kg) 130.2 128.6 128.6 128.6 128.6 128.6 128.6 128.6 Physical Exam: Gen: NAD Neuro: improved mental status, answers questions CV: RRR Resp: nonlabored, CTAB Abd: soft, approp TTP, incision with raheel c/d/i Ext: WWPx4, SCDs Skin: warm and dry Labs: Recent Labs 10/24/17 0725 10/25/17 0812 WBC 6.5 7.9 HGB 7.1* 7.5* HCT 22.0* 22.8* PLT 199 263 Recent Labs 10/24/17 1525 10/25/17 0812 NA 140 144 K 5.6* 4.9 CL 102 104 CO2 31 31 BUN 64* 61* CREATININE 1.71* 1.63* GLUCOSE 301* 122* CALCIUM 8.7 9.0 MG 1.9 1.8 PHOS 4.4 4.8* Recent Labs 10/25/17 1342 10/25/17 1358 10/25/17 1423 10/25/17 2004 10/25/17 2353 10/26/17 0534 POCGMD 55* 59* 122* 204* 202* 121* Recent Labs 10/24/17 1525 10/25/17 0812 AST 11* 14 ALT 20 18 BILITOT 0.7 0.7 BILIDIRECT 0.34 0.21 ALKPHOS 66 61 ALBUMIN 2.9* 2.9* 3.0* 3.0* No results for input(s): INR, PROTIME in the last 72 hours. Current Medications: Scheduled Meds: ??? aspirin 81 mg Oral Daily with breakfast ??? carvedilol 50 mg Oral BID ??? cloNIDine HCl 0.1 mg Oral BID ??? cycloSPORINE modified 200 mg Oral BID7 ??? entecavir 1 mg Oral DAILY 0600 ??? gabapentin 600 mg Oral TID ??? heparin (porcine) 5,000 Units Subcutaneous 3 times per day ??? insulin lispro 0-10 Units Subcutaneous Nightly (2099) ??? insulin lispro 0-12 Units Subcutaneous TID AC ??? lidocaine 1 patch Transdermal Q24H ??? melatonin 6 mg Oral Nightly (2099) ??? mycophenolate 500 mg Oral BID ? ? nystatin 500,000 Units Swish & Swallow TID ??? pantoprazole 40 mg Oral DAILY 0600 ??? [START ON 10/29/2017] predniSONE 15 mg Oral Daily 0900 ??? predniSONE 20 mg Oral Daily 0900 ??? sulfamethoxazole-trimethoprim 1 tablet Oral Daily 0900 ??? valGANciclovir 900 mg Oral Daily 0900 Continuous Infusions: PRN Meds: acetaminophen, All IV Medications in Normal Saline 0.9%, dextrose 50 % in water (D50W), glucose, ipratropium-albuterol, ondansetron, oxyCODONE OR oxyCODONE, traMADol OR traMADol Assessment/Plan: Leoncio Rollins is a 42 y.o. 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 Plan: - Neuro: pain controlled - Oxycodone, tramadol - melatonin - CV: Hypertension improved - Coreg, clonidine, ASA - Pulm: NC 1L overnight, wean as tolerated - encourage IS - Pulm c/s: VQ scan normal. -CT chest today - FEN/GI: - Continue diabetic diet as tolerated - Protonix daily - : voiding spontaneously, - IS: Cellcept 500, prednisone 20 - cont Cyclosporine - ID: entecavir, nystatin soln, Bactrim, Valcyte -Per ID, donor tested positive for Toxo IgM; toxo PCR negative - Endo: Hypoglycemic episodes. - HDSSI now, holding NPH. - Heme: H/H stable. - PT/OT recs: inpatient rehab - PPx: SQH, SCDs - Dispo: Floor Fox Han MD Transplant Surgery [id number] Pager Cosigned by Gennaro Reyes MD at 10/26/2017 2:01 PM EDT Associated attestation - Gennaro Reyes MD - 10/26/2017 2:01 PM EDT I performed a history and physical exam of the patient and discussed management with the resident on 10/26/2017. I reviewed the resident???s note and agree with the documented findings and plan of care. Immunosuppression reviewed. Will check CT chest. Continue diuresis to treat anasarca. * Toy Castellon RN - 10/25/2017 8:55 PM EDT Pt's orders . RN to reassess pt and take required actions. TOY CASTELLON RN * Fox Han MD - 10/25/2017 3:24 PM EDT Transplant Surgery Progress Note Patient: Leoncio Rollins Admit Date: 10/07/2017 OR Date: 10/08/2017 Subjective: No acute events overnight. HDS. Pain controlled. Tremors improved. O2 down to 1L NC. Objective: Vitals: Temp: [98 ??F (36.7 ??C)-98.9 ??F (37.2 ??C)] 98 ??F (36.7 ??C) Heart Rate: [71-88] 71 Resp: [16] 16 BP: (133-175)/(64-92) 133/64 Date 10/24/17 1500 - 10/25/17 0659 10/25/17 0700 - 10/26/17 0659 Shift 7772-3513 4477-1123 24 Hour Total 3986-9865 1215-3353 0029-1803 24 Hour Total I N T A K E P.O. 240 240 720 240 240 P.O. 240 480 240 240 PO given (ml) 240 240 Shift Total (mL/kg) 240 (1.8) 240 (1.8) 720 (5.5) 240 (1.8) 240 (1.8) O U T P U T Urine (mL/kg/hr) 1400 (1.3) 1000 (1) 2725 (0.9) 2450 (2.4) 2450 Urine 1400 1000 2725 2450 2450 Stool Stool Occurrence 1 x Shift Total (mL/kg) 1400 (10.8) 1000 (7.7) 2725 (20.9) 2450 (18.8) 2450 (18.8) Weight (kg) 130.2 130.2 130.2 130.2 130.2 130.2 130.2 Physical Exam: Gen: NAD Neuro: improved mental status, answers questions CV: RRR Resp: nonlabored, CTAB Abd: soft, approp TTP, incision with raheel c/d/i Ext: WWPx4, SCDs Skin: warm and dry Labs: Recent Labs 10/23/17 0613 10/24/17 0725 10/25/17 0812 WBC 8.4 6.5 7.9 HGB 7.7* 7.1* 7.5* HCT 23.1* 22.0* 22.8* PLT 247 199 263 Recent Labs 10/23/17 0613 10/24/17 1525 10/25/17 0812 NA 142 140 144 K 4.7 5.6* 4.9 CL 104 102 104 CO2 31 31 31 BUN 66* 64* 61* CREATININE 1.91* 1.71* 1.63* GLUCOSE 95 301* 122* CALCIUM 9.1 8.7 9.0 MG 2.2 1.9 1.8 PHOS 3.9 4.4 4.8* Recent Labs 10/25/17 0525 10/25/17 0548 10/25/17 0800 10/25/17 1342 10/25/17 1358 10/25/17 1423 POCGMD 62* 95 140* 55* 59* 122* Recent Labs 10/23/17 0613 10/24/17 1525 10/25/17 0812 AST 13 11* 14 ALT 24 20 18 BILITOT 0.7 0.7 0.7 BILIDIRECT 0.16 0.34 0.21 ALKPHOS 71 66 61 ALBUMIN 3.0* 3.0* 2.9* 2.9* 3.0* 3.0* No results for input(s): INR, PROTIME in the last 72 hours. Current Medications: Scheduled Meds: ??? aspirin 81 mg Oral Daily with breakfast ??? carvedilol 50 mg Oral BID ??? cloNIDine HCl 0.1 mg Oral BID ??? cycloSPORINE modified 200 mg Oral BID7 ??? entecavir 1 mg Oral DAILY 0600 ??? gabapentin 600 mg Oral TID ??? heparin (porcine) 5,000 Units Subcutaneous 3 times per day ??? insulin lispro 0-10 Units Subcutaneous Nightly (2099) ??? insulin lispro 0-12 Units Subcutaneous TID AC ??? lidocaine 1 patch Transdermal Q24H ??? magnesium sulfate 4 g Intravenous Once ??? melatonin 6 mg Oral Nightly (2099) ??? mycophenolate 500 mg Oral BID ? ? nystatin 500,000 Units Swish & Swallow TID ??? pantoprazole 40 mg Oral DAILY 0600 ??? [START ON 10/29/2017] predniSONE 15 mg Oral Daily 0900 ??? predniSONE 20 mg Oral Daily 00 ??? sulfamethoxazole-trimethoprim 1 tablet Oral Daily 899 ??? valGANciclovir 900 mg Oral Daily 0900 Continuous Infusions: PRN Meds: acetaminophen, All IV Medications in Normal Saline 0.9%, dextrose 50 % in water (D50W), glucose, ipratropium-albuterol, ondansetron, oxyCODONE OR oxyCODONE, traMADol OR traMADol Assessment/Plan: Leoncio Rollins is a 42 y.o. 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 Plan: - Neuro: pain controlled - Oxycodone, tramadol - melatonin - CV: Hypertension improved - Coreg, clonidine, ASA - Pulm: NC 1L overnight, wean as tolerated - encourage IS - Pulm c/s: VQ scan normal. - FEN/GI: - Continue diabetic diet as tolerated - Protonix daily - : voiding spontaneously, - IS: Cellcept 500, prednisone 15 - holding Prograf due to tremors - started on Cyclosporine. - ID: entecavir, nystatin soln, Bactrim, Valcyte -Per ID, donor tested positive for Toxo IgM; toxo PCR negative - Endo: Hypoglycemic episodes. - HDSSI now, holding NPH. - Heme: H/H stable. - PT/OT recs: inpatient rehab - PPx: SQH, SCDs - Dispo: Floor Fox Han MD Transplant Surgery [id number] Pager Cosigned by Gennaro Reyes MD at 10/26/2017 2:42 PM EDT Associated attestation - Gennaro Reyes MD - 10/26/2017 2:42 PM EDT I performed a history and physical exam of the patient and discussed management with the resident on 10/25/17 I reviewed the resident???s note and agree with the documented findings and plan of care. * Annie Aden, PT - 10/25/2017 10:30 AM EDT Inpatient Physical Therapy Treatment Note Name: Leoncio Rollins :1975 Attending Physician: David Mendenhall MD Admitting Diagnosis: S/P liver transplant ([facility] Dx) [Z94.4] Date: 10/25/2017 Room: [address] [place] [address] Hospital Course PT/OT: Pt is 42 y.o. 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 Intubated 09/18, extubated 10/09. Continued AMS, (-) MRI/Head CT.10/24 VQ scan (-), LE dopplers (-) PMH: acute pancreatitis, ascites, DM, GERD, hepatic encephalopathy, HTN, SAL, vitamin D deficiency. Precautions: No limitations Activity level: activity as tolerated Assessment: Leoncio with increased mobility this morning. He was able to ambulate in the hallway ~50'x2 using a rolling walker and CGA. His tremors have decreased but are still present. He tends to desat with mobility and required frequent breaks and verbal cues. Cont POC Recommendations: Recommendation: IP Rehab AM-PAC 6 Clicks Basic Mobility Inpatient Short Form: PT 6 Clicks Score: 18 Equipment Recommended: Defer at this time Mobility Recommendations for Staff: Patient ambulates in hallway with 1 person assist requires use of rolling walker during activity Present Cognitive Status: Patient is oriented (WFL). Patient is alert, appropriate and cooperative. Patient is able to follow all commands. Patient Comments: I need to sit Pain: Patient reports pain in incisional site ; no number stated Pain interventions: repositioned and activity increased Treatment: Functional Mobility: Bed mobility = Patient transitions from supine to sit with supervision with increased time Sit to stand = Patient transfers from sit to stand with contact guard assistance with verbal cues for proper hand placement Stand to sit = Patient transfers from stand to sit with contact guard assistance Gait = Patient ambulates 50 ft.x 2 with contact guard assistance using rolling walker . Gait deviations include slow anand, decreased B step length. Pt with decreased SpO2 with 1 L O2- to 87% with ambulation. He required 1 seated rest break and verbal cues for breathing - returning to 93% prior to return ambulation. Balance: Static sitting = performs independently Dynamic sitting = performs independently Static standing = performs with contact guard assistance using rolling walker Dynamic standing = performs with contact guard assistance using rolling walker Positioning: Patient left in chair at end of session, visitor(s) present and call light/ needs left within reach. Goals: Patient met bed mobility and sit to stand goal(s) this date. Updated/active goals below: To be met by: 10/30/2017 ?? Bed mobility = Patient will transition from supine to sit independently Sit to stand = Patient will transfer from sit to stand with supervision Gait = Patient amb 200' with CGA using RW ?? Long-term goal??(to be met by 11/27/2017): Patient will transition from supine to sit with supervision Above goals discussed with patient and family -- Yes. Patient/Family Education: Educated patient and patient's family on the role of physical therapy, goals, plan of care, importance of increased activity and discharge recommendations and fall prevention strategies, including need for supervision/ assistance with OOB activity and use of call light; patient and patient's familyverbalized understanding and demonstrated understanding. Plan: Continue plan of care, at least 3 time(s) per week. The plan of care and recommendations assesses the patient's and/or caregiver's readiness, willingness, and ability to provide or support functional mobility and ADL tasks as needed upon discharge. Signed: Annie Aden PT [facility] [phone] Office [phone] pager Hours 6:00-3:30 M-W Patient class: Inpatient Start Time: 943 Stop Time: 1008 Time Calculation (min): 24 min Units Rendered: $Gait/Mobility: 8-22 mins $Therapeutic Activity: 1 unit PMH: Past Medical History: Diagnosis Date ??? Acute pancreatitis ??? Ascites ??? Diabetes mellitus (CMS Dx) ??? Esophageal varices with bleeding (CMS Dx) ??? GERD (gastroesophageal reflux disease) ??? Hepatic encephalopathy (CMS Dx) ??? Hypertension ??? 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 Vitamin D deficiency PSH: Past Surgical History: Procedure Laterality Date ??? LIVER TRANSPLANTATION N/A 10/08/2017 Procedure: TRANSPLANT LIVER; Surgeon: David Mendenhall MD; Location: [facility]; Service: Transplant; Laterality: N/A; ??? TIPS PROCEDURE 10/2016 ??? TIPS Revision 04/2017 * Abbie Paz, OTR - 10/25/2017 10:18 AM EDT Occupational Therapy Progress Note Name: Leoncio Rollins :1975 Attending Physician: David Mendenhall MD Admitting Diagnosis: S/P liver transplant ([facility] Dx) [Z94.4] Date: 10/25/2017 Room: [address] [place] [address] Hospital Course PT/OT: Pt is 42 y.o. 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 Intubated 09/18, extubated 10/09. Continued AMS, (-) MRI/Head CT.10/24 VQ scan (-), LE dopplers (-) PMH: acute pancreatitis, ascites, DM, GERD, hepatic encephalopathy, HTN, SAL, vitamin D deficiency. Precautions: No limitations Activity Level: activity as tolerated Recommendation Recommendation: IP Rehab; if declining will need 24 hour assist at home and Home OT Equipment Recommended: Defer at this time AM-PAC 6 Clicks Daily Activity Inpatient Short Form: OT 6 Clicks Score: 13 Cognitive Status Patient is oriented to X 4. Patient is alert, appropriate, cooperative and impulsive. Patient is able to follow all commands. ADLs and Functional Mobility Bed Mobility: Supervision and increased time getting OOB Cues for safety before functional mobility, as pt first attempting to get up without a walker and then asking to take off O2 NC to make moving easier. Pt educated on need for oxygen and need for RW for safe balance, pt VU. Sit to stand: Contact guard assistance Chair Transfer: Contact guard assistance, Minimal assistance and RW to complete short functional distances- Pt on 1L 02 and dropped to 85%, pt practiced PLB and O2 increased to 93%. Completing distance back pt O2 dropped again to 85% and increased back to 91% with PLB and increased time while seated Toilet Transfer: Contact guard assistance- able to complete timothy care with time Grooming: Supervision washing hands at sink LE ADLs: Maximal assistance- pt reports will help as needed Balance Static Sitting: Independent Dynamic Sitting: Independent Static Standing: Contact guard assistance and RW Dynamic Standing: Contact guard assistance, Minimal assistance and RW Pain Patient reports pain in incision site-sore ; no number stated. Pain interventions: repositioned and activity increased Positioning Patient left in chair at end of session, visitor(s) present, nurse present and call light/ needs left within reach. Chair alarm unchanged from previous setting. Assessment Pt tolerated session well, limited by decreased cognition, balance, activity tolerance. Will con't to work towards established goals. Goals To be met in: 1 week Patient will complete supine to sit with contact guard??assistance (previous goal met 10/16, GOAL MET10/25) Patient will complete sit to stand independently (goal met/upgraded 10/12, 10/25) Patient will complete chair transfer :with supervision with or without A/D. Patient will complete LE ADLs with minimal??assistance. (previous goal met 10/16) ?? Long-term goal: Patient will tolerate toilet transfers with supervision ??(to be met in 2 weeks) ?? Patient stated goals: to go home? Rehabilitation Potential (for above goals): good Patients and/or caregivers as well as practitioners mutually agreed upon the above goals. Plan Pt to be seen a minimum of 3 time(s) per week. Patient/Family Education Educated patient and patient's family on the role of occupational therapy, OT goals, OT plan of care, discharge recommendation, ADL training, functional mobility training and the importance of safetyand fall prevention strategies including need for supervision/ assistance with OOB activity and useof call light. patient verbalized understanding and demonstrated understanding. The plan of care assesses the patient's and/or caregiver's readiness, willingness, and ability to provide or support functional mobility and ADL tasks as needed upon discharge. Abbie Paz OTR/L Occupational Therapy (p) [phone] Patient Class: Inpatient Time Start Time: 946 Stop Time: 1014 Time Calculation (min): 28 min Charges $Therapeutic Activity: 23-37 mins PMH: Past Medical History: Diagnosis Date ??? Acute pancreatitis ??? Ascites ??? Diabetes mellitus (CMS Dx) ??? Esophageal varices with bleeding (CMS Dx) ??? GERD (gastroesophageal reflux disease) ??? Hepatic encephalopathy (CMS Dx) ??? Hypertension ??? 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 Vitamin D deficiency PSH: Past Surgical History: Procedure Laterality Date ??? LIVER TRANSPLANTATION N/A 10/08/2017 Procedure: TRANSPLANT LIVER; Surgeon: David Mendenhall MD; Location: OR; Service: Transplant; Laterality: N/A; ??? TIPS PROCEDURE 10/2016 ??? TIPS Revision 04/2017 * Margoth Taylor - 10/25/2017 6:32 AM EDT 10/25/17 0600 24 HR Nutrition Analysis Totals 24 HR Total Calories (kcals) 671 kcals (32% calorie needs met) 24 Hr Total Protein (g) 38.4 g (37% protein needs met) Established Estimated Nutrition Needs: Needs based On: IBW 69.5kg Kcals/day: (30kcal/kg) 2085kcals Protein g/day: (1.5-2.0g/kg)104-139g Carbohydrate g/day: (45% of kcals) 235g Fluid ml/day: 1ml/kcal or as per MD 1 meal recorded for 10/24/17 Includes drank one Boost glucose control Margoth Taylor DT, LD Pager # [phone] * Toy Castellon RN - 10/24/2017 9:33 PM EDT CMU reconciliation completed for patient, Leoncio Rollins TOY CASTELLON RN * Mandi Lenz, RICARDO - 10/24/2017 9:03 PM EDT Sputum cup remains at bedside, not enough to send sample at this time. * Erika Cordon RN - 10/24/2017 6:43 PM EDT CMU remote monitoring orders are reconciled at this time. Erika Cordon RN * Judi Johnson - 10/24/2017 1:09 PM EDT 10/24/17 1300 24 HR Nutrition Analysis Totals 24 HR Total Calories (kcals) 0 kcals 24 Hr Total Protein (g) 0 g No food records available from 10/23/17. Judi Johnson, DT [phone] * Tam Neil MD - 10/24/2017 6:31 AM EDT Transplant Surgery Progress Note Patient: Leoncio Rollins Admit Date: 10/07/2017 OR Date: 10/08/2017 Subjective: No acute events overnight. HDS. Pain controlled. Tremors improved. 2L NC. Objective: Vitals: Temp: [98 ??F (36.7 ??C)-101.6 ??F (38.7 ??C)] 98.1 ??F (36.7 ??C) Heart Rate: [52-94] 68 Resp: [18] 18 BP: (136-177)/(73-86) 177/84 Date 10/23/17 0700 - 10/24/17 0659 10/24/17 0700 - 10/25/17 0659 Shift 1517-2104 3026-1628 5275-5827 24 Hour Total 1388-4093 4504-7272 2394-9651 24 Hour Total I N T A K E P.O. 600 196 690 1127 P.O. 600 425 855 7117 Shift Total (mL/kg) 600 (4.6) 480 (3.7) 120 (0.9) 1200 (9.2) O U T P U T Urine (mL/kg/hr) 750 (0.7) 400 (0.4) 475 1625 Urine 750 428 701 1089 Stool Stool Occurrence 0 x 0 x Shift Total (mL/kg) 750 (5.8) 400 (3.1) 475 (3.6) 1625 (12.5) Weight (kg) 130.2 130.2 130.2 130.2 130.2 130.2 130.2 130.2 Physical Exam: Gen: NAD Neuro: improved mental status, answers questions CV: RRR Resp: nonlabored, CTAB Abd: soft, approp TTP, incision with raheel c/d/i Ext: WWPx4, SCDs Skin: warm and dry Labs: Recent Labs 10/21/17 0642 10/22/17 0641 10/23/17 0613 WBC 6.8 7.8 8.4 HGB 7.0* 7.2* 7.7* HCT 20.4* 22.0* 23.1* PLT 137* 172 247 Recent Labs 10/21/17 0642 10/22/17 0641 10/23/17 0613 NA 135 140 142 K 4.7 4.8 4.7 CL 99 102 104 CO2 29 30 31 BUN 72* 75* 66* CREATININE 2.40* 2.15* 1.91* GLUCOSE 304* 175* 95 CALCIUM 8.4* 8.8 9.1 MG 2.2 2.3 2.2 PHOS 6.0* 5.4* 3.9 Recent Labs 10/22/17 2021 10/23/17 0809 10/23/17 1336 10/23/17 1739 10/23/17 2054 10/23/17 2324 POCGMD 276* 77 133* 151* 214* 234* Recent Labs 10/21/17 0642 10/22/17 0641 10/23/17 0613 AST 11* 9* 13 ALT 29 26 24 BILITOT 0.6 0.7 0.7 BILIDIRECT 0.18 0.24 0.16 ALKPHOS 61 62 71 ALBUMIN 2.5* 2.5* 2.9* 2.9* 3.0* 3.0* No results for input(s): INR, PROTIME in the last 72 hours. Current Medications: Scheduled Meds: ??? aspirin 81 mg Oral Daily with breakfast ??? carvedilol 37.5 mg Oral BID ??? cloNIDine HCl 0.1 mg Oral BID ??? cycloSPORINE modified 150 mg Oral BID7 ??? entecavir 1 mg Oral DAILY 0600 ??? gabapentin 600 mg Oral TID ??? heparin (porcine) 5,000 Units Subcutaneous 3 times per day ??? insulin lispro 0-10 Units Subcutaneous Nightly (2100) ??? insulin lispro 0-12 Units Subcutaneous TID AC ??? insulin lispro 15 Units Subcutaneous TID WC ??? insulin NPH 30 Units Subcutaneous Nightly (2099) And ??? insulin NPH 75 Units Subcutaneous QAM ??? lidocaine 1 patch Transdermal Q24H ??? melatonin 3 mg Oral Nightly (2099) ??? mycophenolate 500 mg Oral BID ? ? nystatin 500,000 Units Swish & Swallow TID ??? pantoprazole 40 mg Oral DAILY 0600 ??? [START ON 10/29/2017] predniSONE 15 mg Oral Daily 0900 ??? predniSONE 20 mg Oral Daily 0900 ??? sulfamethoxazole-trimethoprim 1 tablet Oral Daily 0900 ??? valGANciclovir 900 mg Oral Daily 0900 Continuous Infusions: PRN Meds: All IV Medications in Normal Saline 0.9%, dextrose 50 % in water (D50W), glucose, ipratropium-albuterol, ondansetron, oxyCODONE OR oxyCODONE, traMADol OR traMADol Assessment/Plan: Leoncio Rollins is a 42 y.o. 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 Plan: - Neuro: pain controlled - Oxycodone, tramadol - melatonin - CV: Hypertension improved - Chest pain 10/19: EKG negative, troponin 0.09, 0.06 - no further workup - Coreg, clonidine, ASA - Pulm: NC 2L overnight, wean as tolerated - encourage IS - Pulm c/s: recommending V/Q scan, ordered - FEN/GI: - Continue diabetic diet as tolerated - Protonix daily - : voiding spontaneously, UOP 1.6L; Cr 1.91 (2.15) yesterday AM; follow up AM labs; - IS: Cellcept 500, prednisone 20 - holding Prograf due to tremors - improving. 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 Blood cultures 10/19 NGTD, UA negative, sputum culture sent - in process. WBC 8.4 yesterday AM. - Endo: BG 77-234, range improving - NPH 75/30 + lispro 15 TID + HDSSI - Heme: H/H stable. - PT/OT recs: inpatient rehab - PPx: SQH, SCDs - Dispo: Floor TAM NEIL MD Transplant Surgery [id number] Pager Cosigned by David Mendenhall MD at 10/24/2017 6:25 PM EDT Associated attestation - David Mendenhall MD - 10/24/2017 6:25 PM EDT I have seen and examined the patient and agree with the plan. All points of care were reviewed in amultidisciplinary fashion with the housestaff and teams involved. Immunosuppression reviewed. Ambulate, OOB 3x a day. Encourage nutrition, monitor PO intake. Continue to stress education and teaching of daily activities, medications and post-surgical issues. * Josefa Lake, INSTRUCTOR PRIVATE - 10/23/2017 6:46 PM EDT Pt educated on sputum collection. Sputum cup left at bedside. Josefa Lake [employer]CTOR [employer]IVATE * Mandi Cazares PharmD - 10/23/2017 3:57 PM EDT Transplant Pharmacy Note Transplant pharmacy is following Leoncio Rollins during hospital admission and will perform the following activities related to transplant pharmacotherapy: 1. Ensure appropriate management and titration of immunosuppressive, prophylactic, and other supportive care medications; 2. Monitor for any adverse drug effects; 3. Review the patient's medication profile for any potential drug interaction. For issues not related to transplantation, please contact the clinical pharmacist assigned to the primary service. Mandi Cazares PharmD Transplant Pharmacy Specialty Resident Desk Pager: [phone] * KODAK Mcfarland - 10/23/2017 2:30 PM EDT Occupational Therapy Progress Note Name: Leoncio Rollnis :1975 Attending Physician: David Mendenhall MD Admitting Diagnosis: S/P liver transplant ([facility] Dx) [Z94.4] Date: 10/23/2017 Room: [address] [place] [address] Hospital Course PT/OT: Pt is 42 y.o. 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 Intubated 09/18, extubated 10/09. Continued AMS, (-) MRI/Head CT. PMH: acute pancreatitis, ascites, DM, GERD, hepatic encephalopathy, HTN, SAL, vitamin D deficiency. Precautions: No limitations Activity Level: activity as tolerated Recommendation Recommendation: IP Rehab Equipment Recommended: Defer at this time AM-PAC 6 Clicks Daily Activity Inpatient Short Form: OT 6 Clicks Score: 13 Cognitive Status Patient is oriented to (WFL). Patient is alert, appropriate, cooperative and impulsive. Patient is able to follow one-step commands and two-step commands. Decreased insight to balance deficits ADLs and Functional Mobility Bed Mobility: Contact guard assistance Sit to stand: Contact guard assistance Chair Transfer: Contact guard assistance, Minimal assistance and RW- pt with increased tremor, buckling at the knees, requiring assist for balance. Pt reports i don't feel right, I think I need to go back. Blood glucose checked 132. O2 83%, while on 2L O2. Pt cued for PLB- DU. O2 eventually up to91%. Pt to bed but then reports wanting to sit up for lunch - min assist to transition. Toilet Transfer: Contact guard assistance Grooming: Minimal assistance for balance at sink- decreased fine motor skills with tremor. LE ADLs: moderate assist for socks, edema noted in both LEs. Pill on table, RN aware. Balance Static Sitting: Supervision Dynamic Sitting: Supervision Static Standing: Contact guard assistance, Minimal assistance and RW Dynamic Standing: Minimal assistance and RW Exercises Pt educated on ankle pumps and elevating Pain Patient denies pain. Pain interventions: repositioned and activity increased Positioning Patient left in chair at end of session, nurse notified, visitor(s) present and call light/ needs left within reach. Chair alarm unchanged from previous setting. Assessment Co-tx 2/2 pt activity tolerance. Pt limited by decreased O2 sats, SOB, tremor impairing balance. Will con't to work towards established goals. Goals To be met in: 1 week Patient will complete supine to sit with contact guard??assistance (previous goal met 10/16) Patient will complete sit to stand with contact guard assistance (goal met/upgraded 10/12) Patient will complete chair transfer :with supervision with or without A/D. Patient will complete LE ADLs with minimal??assistance. (previous goal met 10/16) ?? Long-term goal: Patient will tolerate toilet transfers with supervision ??(to be met in 2 weeks) ?? Patient stated goals: to go home? Rehabilitation Potential (for above goals): good Patients and/or caregivers as well as practitioners mutually agreed upon the above goals. Plan Pt to be seen a minimum of 3 time(s) per week. Patient/Family Education Educated patient on the role of occupational therapy, OT goals, OT plan of care, discharge recommendation, ADL training, functional mobility training and the importance of safety and fall prevention strategies including need for supervision/ assistance with OOB activity and use of call light. patient verbalized understanding and demonstrated understanding. The plan of care assesses the patient's and/or caregiver's readiness, willingness, and ability to provide or support functional mobility and ADL tasks as needed upon discharge. Abbie Paz OTR/L Occupational Therapy [phone]) [phone] Patient Class: Inpatient Time Start Time: 1326 Stop Time: 1349 Time Calculation (min): 23 min Charges $Therapeutic Activity: 23-37 mins PMH: Past Medical History: Diagnosis Date ??? Acute pancreatitis ??? Ascites ??? Diabetes mellitus (CMS Dx) ??? Esophageal varices with bleeding (CMS Dx) ??? GERD (gastroesophageal reflux disease) ??? Hepatic encephalopathy (CMS Dx) ??? Hypertension ??? 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 Vitamin D deficiency PSH: Past Surgical History: Procedure Laterality Date ??? LIVER TRANSPLANTATION N/A 10/08/2017 Procedure: TRANSPLANT LIVER; Surgeon: David Mendenhall MD; Location: [facility]; Service: Transplant; Laterality: N/A; ??? TIPS PROCEDURE 10/2016 ??? TIPS Revision 04/2017 * Annie Aden, PT - 10/23/2017 2:01 PM EDT Inpatient Physical Therapy Treatment Note Name: Leoncio Rollins :1975 Attending Physician: David Mendenhall MD Admitting Diagnosis: S/P liver transplant ([facility] Dx) [Z94.4] Date: 10/23/2017 Room: [address] [place] [address] Hospital Course PT/OT: Pt is 42 y.o. 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 Intubated 09/18, extubated 10/09. Continued AMS, (-) MRI/Head CT. PMH: acute pancreatitis, ascites, DM, GERD, hepatic encephalopathy, HTN, SAL, vitamin D deficiency. Precautions: No limitations Activity level: activity as tolerated Assessment: Leoncio tolerated tx session this afternoon but limited d/t increased tremors during mobility. His SpO2 continues to drop with mobility requiring increased time to return to 90's (SpO2). Cont POC. Recommendations: Recommendation: IP Rehab AM-PAC 6 Clicks Basic Mobility Inpatient Short Form: PT 6 Clicks Score: 17 Equipment Recommended: Defer at this time Mobility Recommendations for Staff: Patient ambulates in room/to bathroom with 1 person assist requires use of rolling walker and home oxygen during activity Present Cognitive Status: Patient is oriented (WFL). Patient is alert, appropriate and cooperative. Patient is able to follow all commands. Patient Comments: I just don't feel right Pain: Patient denies pain Treatment: Functional Mobility: Pt sitting in bedside chair upon therapy arrival Sit to stand = Patient transfers from sit to stand with minimal assistance Stand to sit = Patient transfers from stand to sit with contact guard assistance Gait = Patient ambulates 12 ft. X 2 with minimal assistance using rolling walker . Gait deviations include decreased anand, decreased B step length. Pt with increased tremors with B knee buckling. Pt required verbal cues to remain close to the walker. Pt later stating that he was feeling light headed and dizzy with ambulation. Balance: Static sitting = performs with supervision Dynamic sitting = performs with supervision Static standing = performs with minimal assistance using rolling walker Dynamic standing = performs with minimal assistance using rolling walker Positioning: Patient left in chair at end of session, nurse notified, visitor(s) present and call light/ needs left within reach. Chair alarm unchanged from previous setting. Goals: Patient met no goal(s) this date. Updated/active goals below: To be met by: 10/30/2017 ?? Bed mobility = Patient will transition from supine to sit with CGA Sit to stand = Patient will transfer from sit to stand with CGA Gait = Patient amb 200' with CGA using RW ?? Long-term goal??(to be met by 11/27/2017): Patient will transition from supine to sit with supervision Above goals discussed with patient and family -- Yes. Patient/Family Education: Educated patient and patient's family on the role of physical therapy, goals, plan of care, importance of increased activity and discharge recommendations and fall prevention strategies, including need for supervision/ assistance with OOB activity and use of call light; patient and patient's familyverbalized understanding and demonstrated understanding. Plan: Continue plan of care, at least 3 time(s) per week. The plan of care and recommendations assesses the patient's and/or caregiver's readiness, willingness, and ability to provide or support functional mobility and ADL tasks as needed upon discharge. Signed: Annie Aden PT [facility] [phone] Office [phone] pager Hours 6:00-3:30 M-W Patient class: Inpatient Start Time: 1325 Stop Time: 1349 Time Calculation (min): 24 min Units Rendered: $Gait/Mobility: 8-22 mins $Therapeutic Activity: 1 unit PMH: Past Medical History: Diagnosis Date ??? Acute pancreatitis ??? Ascites ??? Diabetes mellitus (CMS Dx) ??? Esophageal varices with bleeding (CMS Dx) ??? GERD (gastroesophageal reflux disease) ??? Hepatic encephalopathy (CMS Dx) ??? Hypertension ??? 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 Vitamin D deficiency PSH: Past Surgical History: Procedure Laterality Date ??? LIVER TRANSPLANTATION N/A 10/08/2017 Procedure: TRANSPLANT LIVER; Surgeon: David Mendenhall MD; Location: [facility]; Service: Transplant; Laterality: N/A; ??? TIPS PROCEDURE 10/2016 ??? TIPS Revision 04/2017 * Josie Hastings, RD - 10/23/2017 7:32 AM EDT [facility] Medical Nutrition Therapy Follow-Up Diet Order/Nutrition Support: Consistent Carbohydrate Diet, Boost Glucose Control TID, Boost Pudding TID Pertinent Information: Mr. Rollins is a ??42 y.o.??male??with PMHx SAL cirrhosis s/p OLT on 10/08/17. Pt with improved mental status. Holding prograf today due to tremors. Insulin dose increase 10/22 tohelp better control glucose levels. Meal intakes continue to be 100%, per flow sheet. Per calorie counts, when recorded accurately and meal tickets being saved, is meeting 100% of calorie and proteinneeds. Pt was sitting in chair with a visitor in room during visit. Visitor reported that his appetite hasbeen excellent besides this morning. Reports that his blood sugars dropped so he wasn't feeling very well. Pt has breakfast tray at bedside. On tray was Boost pudding, Boost glucose control, scrambled eggs, sausage and an german muffin with jelly. Patient ate ~50% of tray. Visitor reports that he has been eating really well besides today and consuming near 100% of all three meals. Also consumingall of the Boost pudding and Glucose Control supplements. Denies patient experiencing any nausea, vomiting or diarrhea. No other nutrition questions at this time. Calorie Counts: 10/21/17 0800 10/22/17 0656 10/23/17 0600 24 HR Nutrition Analysis Totals 24 HR Total Calories (kcals) 2119 kcals (102% calorie needs met) 0 kcals 0 kcals 24 Hr Total Protein (g) 123.5 g (119% protein needs met) 0 g 0 g Scheduled Meds: ??? aspirin 81 mg Oral Daily with breakfast ??? carvedilol 37.5 mg Oral BID ??? cloNIDine HCl 0.1 mg Oral BID ??? entecavir 1 mg Oral DAILY 0600 ??? gabapentin 600 mg Oral TID ??? heparin (porcine) 5,000 Units Subcutaneous 3 times per day ??? insulin lispro 0-10 Units Subcutaneous Nightly (2099) ??? insulin lispro 0-12 Units Subcutaneous TID AC ??? insulin lispro 15 Units Subcutaneous TID WC ??? insulin NPH 75 Units Subcutaneous QAM And ??? insulin NPH 40 Units Subcutaneous Nightly (2099) ??? melatonin 3 mg Oral Nightly (2099) ??? mycophenolate 500 mg Oral BID ? ? nystatin 500,000 Units Swish & Swallow TID ??? pantoprazole 40 mg Oral DAILY 0600 ??? predniSONE 20 mg Oral Daily 09 ??? sulfamethoxazole-trimethoprim 1 tablet Oral Daily 899 ??? valGANciclovir 450 mg Oral Daily 899 PRN Meds:All IV Medications in Normal Saline 0.9%, dextrose 50 % in water (D50W), glucose, ondansetron, oxyCODONE OR oxyCODONE, traMADol OR traMADol Pertinent Labs: Lab Results Component Value Date CREATININE 1.91 (H) 10/23/2017 BUN 66 (H) 10/23/2017 NA 142 10/23/2017 K 4.7 10/23/2017 CL 104 10/23/2017 CO2 31 10/23/2017 Lab Results Component Value Date ALBUMIN 3.0 (L) 10/23/2017 ALBUMIN 3.0 (L) 10/23/2017 Lab Results Component Value Date CALCIUM 9.1 10/23/2017 PHOS 3.9 10/23/2017 Lab Results Component Value Date MG 2.2 10/23/2017 Lab Results Component Value Date POCGMD 276 (H) 10/22/2017 Lab Results Component Value Date HGBA1C 5.4 10/09/2017 Weight History: Wt Readings from Last 5 Encounters: 10/21/17 (!) 287 lb 1.6 oz (130.2 kg) 10/02/17 (!) 251 lb (113.9 kg) 08/31/17 (!) 255 lb (115.7 kg) 08/21/17 (!) 255 lb (115.7 kg) 08/21/17 (!) 255 lb (115.7 kg) Established Estimated Nutrition Needs: Needs based On: IBW 69.5kg Kcals/day: (30kcal/kg) 2085kcals Protein g/day: (1.5-2.0g/kg)104-139g Carbohydrate g/day: (45% of kcals) 235g Fluid ml/day: 1ml/kcal or as per MD ?? Nutrition Diagnosis: Increased kcal/protein needs ?? Related To: Increased demand for nutrients As Evidenced By: Recent liver transplant, medically complex ?? Nutrition Diagnosis: Food- and nutrition-related knowledge deficit Related to:?? Exposure to new information As evidenced by: Recent liver transplant and subsequent need for medical nutrition therapy education ?? Established Nutrition Intervention: Change Current Diet Order, Add/Change Medical Food Supplement/Snack, Monitor PO Intake/Tolerance and Education/Counseling: post txp nutrition ?? Established Goals: ??Total energy intake improved as evidenced by PO intake at least 50-75% of meals/supplements/snacks within -1-3??days and Voices/demonstrates knowledge of post txp??education/counseling ?? Goals: Met- ongoing Nutrition Status Classification: Severely Compromised Coordination of Nutrition Care: Currently there are no further barriers to discharge from a nutrition perspective and will further assess patient on an as needed basis as identified by the transplantmultidisciplinary team Follow up per protocol while inpatient. If patient is discharged, dietitian will be available for consultation on an as needed basis as identified by the multidisciplinary team. Additional Recommendation(s) to Physicians: ?? Continue current diet and supplements ?? Continue to monitor and encourage PO intake. Josie Hastings, [employer] Machine [employer] Cosigned by Aj Govea RD at 10/23/2017 10:16 AM EDT Associated attestation - Aj Govea RD - 10/23/2017 10:16 AM EDT I agree with the nutrition assessment and recommendations made by Josie Hastings, [employer] Machine Helper. Aj Govea MS, RD, LD Clinical Dietitian Pager #[phone] * Margoth Taylor - 10/23/2017 6:56 AM EDT 10/22/17 0656 24 HR Nutrition Analysis Totals 24 HR Total Calories (kcals) 0 kcals 24 Hr Total Protein (g) 0 g 2 meal tickets saved for 10/21/17, although nothing recorded on neither ticket to calculate tabatha/pro for those meals NELLY Hoover Pager # [phone] * Margoth Taylor - 10/23/2017 6:55 AM EDT 10/23/17 0600 24 HR Nutrition Analysis Totals 24 HR Total Calories (kcals) 0 kcals 24 Hr Total Protein (g) 0 g no meal tickets saved to record 10/22/17 calorie count NELLY Hoover Pager # [phone] * Tam Neil MD - 10/23/2017 6:21 AM EDT Transplant Surgery Progress Note Patient: Leoncio Rollins Admit Date: 10/07/2017 OR Date: 10/08/2017 Subjective: No acute events overnight. HDS. Tremors continuing to improve. 2L NC. Objective: Vitals: Temp: [98.2 ??F (36.8 ??C)-98.6 ??F (37 ??C)] 98.2 ??F (36.8 ??C) Heart Rate: [73-83] 80 Resp: [16-18] 16 BP: (122-153)/(45-92) 153/87 Date 10/22/17 07 - 10/23/17 0659 10/23/17 07 - 10/24/17 0659 Shift 1814-5975 4504-7714 4748-0237 24 Hour Total 0667-5473 6441-3446 2528-3730 24 Hour Total I N T A K E Shift Total (mL/kg) O U T P U T Urine (mL/kg/hr) 675 (0.6) 300 975 Urine 675 300 975 Shift Total (mL/kg) 675 (5.2) 300 (2.3) 975 (7.5) Weight (kg) 130.2 130.2 130.2 130.2 130.2 130.2 130.2 130.2 Physical Exam: Gen: NAD Neuro: improved mental status, answers questions CV: RRR Resp: nonlabored, CTAB Abd: soft, approp TTP, incision with raheel c/d/i Ext: WWPx4, SCDs Skin: warm and dry Labs: Recent Labs 10/20/17 0632 10/21/17 0642 10/22/17 0641 WBC 9.2 6.8 7.8 HGB 7.2* 7.0* 7.2* HCT 21.4* 20.4* 22.0* PLT 171 137* 172 Recent Labs 10/20/17 0632 10/21/17 0642 10/22/17 0641 NA 138 135 140 K 4.6 4.7 4.8 CL 101 99 102 CO2 29 29 30 BUN 62* 72* 75* CREATININE 2.24* 2.40* 2.15* GLUCOSE 129* 304* 175* CALCIUM 8.4* 8.4* 8.8 MG 1.9 2.2 2.3 PHOS 5.3* 6.0* 5.4* Recent Labs 10/21/17 1832 10/21/17 2108 10/22/17 0820 10/22/17 1356 10/22/17 1836 10/22/17 2021 POCGMD 316* 331* 220* 189* 302* 276* Recent Labs 10/20/17 0632 10/21/17 0642 10/22/17 0641 AST 14 11* 9* ALT 35 29 26 BILITOT 0.8 0.6 0.7 BILIDIRECT 0.31 0.18 0.24 ALKPHOS 61 61 62 ALBUMIN 2.5* 2.5* 2.5* 2.5* 2.9* 2.9* No results for input(s): INR, PROTIME in the last 72 hours. Current Medications: Scheduled Meds: ??? aspirin 81 mg Oral Daily with breakfast ??? carvedilol 37.5 mg Oral BID ??? cloNIDine HCl 0.1 mg Oral BID ??? entecavir 1 mg Oral DAILY 0600 ??? gabapentin 600 mg Oral TID ??? heparin (porcine) 5,000 Units Subcutaneous 3 times per day ??? insulin lispro 0-10 Units Subcutaneous Nightly (2100) ??? insulin lispro 0-12 Units Subcutaneous TID AC ??? insulin lispro 10 Units Subcutaneous TID WC ??? insulin NPH 75 Units Subcutaneous QAM And ??? insulin NPH 40 Units Subcutaneous Nightly (2099) ??? melatonin 3 mg Oral Nightly (2099) ??? mycophenolate 500 mg Oral BID ? ? nystatin 500,000 Units Swish & Swallow TID ??? pantoprazole 40 mg Oral DAILY 0600 ??? predniSONE 20 mg Oral Daily 0900 ??? sulfamethoxazole-trimethoprim 1 tablet Oral Daily 0900 ??? valGANciclovir 450 mg Oral Daily 0900 Continuous Infusions: PRN Meds: All IV Medications in Normal Saline 0.9%, dextrose 50 % in water (D50W), glucose, ondansetron, oxyCODONE OR oxyCODONE, traMADol OR traMADol Assessment/Plan: Leoncio Rollins is a 42 y.o. 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 Plan: - Neuro: pain controlled - Oxycodone, tramadol - melatonin - CV: Hypertension improved - Chest pain 10/19: EKG negative, troponin 0.09, 0.06 - no further workup - Coreg, clonidine, ASA - Pulm: NC 2L overnight, wean as tolerated - encourage IS - FEN/GI: - Continue diabetic diet as tolerated - Protonix daily - : voiding spontaneously, UOP 975ml; Cr 2.15 (2.40) yesterday AM; follow up AM labs; - IS: Cellcept 500, prednisone 20 - holding Prograf due to tremors. 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 Blood cultures sent NGTD, UA negative, sputum culture to be collected. WBC wnl. - Endo: BG 189-302 - NPH 75/40 + lispro 15 TID + HDSSI - Will monitor BGs this AM, may need increased dose with increased prednisone dosing - Heme: H/H stable. - PT/OT recs: inpatient rehab - PPx: SQH, SCDs - Dispo: Floor TAM NEIL MD Transplant Surgery [id number] Pager Cosigned by Gennaro Reyes MD at 10/23/2017 4:23 PM EDT Associated attestation - Gennaro Reyes MD - 10/23/2017 4:23 PM EDT I performed a history and physical exam of the patient and discussed management with the resident on 10/23/2017. I reviewed the resident???s note and agree with the documented findings and plan of care. Immunosuppression reviewed. Will switch FK to cyclosporine for neurotoxicity. Will attempt diuresis. * Ginger Conn MD - 10/22/2017 6:16 AM EDT Transplant Surgery Progress Note Patient: Leoncio Rollins Admit Date: 10/07/2017 OR Date: 10/08/2017 Subjective: No acute events overnight. HDS. On 2L NC Glucose in the 300s all day Objective: Vitals: Temp: [97.3 ??F (36.3 ??C)-98.6 ??F (37 ??C)] 97.8 ??F (36.6 ??C) Heart Rate: [69-87] 69 Resp: [16-19] 18 BP: (113-149)/(64-88) 125/66 Date 10/21/17 0700 - 10/22/17 0659 10/22/17 0700 - 10/23/17 0659 Shift 5091-1872 7178-4767 6489-5803 24 Hour Total 7808-3582 7920-4299 4769-3881 24 Hour Total I N T A K E Shift Total (mL/kg) O U T P U T Urine (mL/kg/hr) 350 350 Urine 350 350 Urine Occurrence 3 x 3 x Shift Total (mL/kg) 350 (2.7) 350 (2.7) Weight (kg) 130.2 130.2 130.2 130.2 130.2 130.2 130.2 130.2 Physical Exam: Gen: NAD Neuro: improved mental status, answers questions CV: RRR Resp: nonlabored, CTAB Abd: soft, approp TTP, incision with raheel c/d/i Ext: WWPx4, SCDs Skin: warm and dry Labs: Recent Labs 10/19/17 0604 10/20/17 0632 10/21/17 0642 WBC 5.9 9.2 6.8 HGB 6.4* 7.2* 7.0* HCT 18.7* 21.4* 20.4* PLT 182 171 137* Recent Labs 10/19/17 0604 10/20/17 0632 10/21/17 0642 NA 139 138 135 K 3.6 4.6 4.7 CL 102 101 99 CO2 30 29 29 BUN 54* 62* 72* CREATININE 1.77* 2.24* 2.40* GLUCOSE 106* 129* 304* CALCIUM 8.6 8.4* 8.4* MG 2.1 1.9 2.2 PHOS 5.0* 5.3* 6.0* Recent Labs 10/20/17201110/20/17 2200 10/21/17 0815 10/21/17 1254 10/21/17 1832 10/21/17 2108 POCGMD 265* 362* 319* 348* 316* 331* Recent Labs 10/19/17 0604 10/20/17 0632 10/21/17 0642 AST 15 14 11* ALT 46 35 29 BILITOT 0.7 0.8 0.6 BILIDIRECT 0.36 0.31 0.18 ALKPHOS 61 61 61 ALBUMIN 2.6* 2.6* 2.5* 2.5* 2.5* 2.5* No results for input(s): INR, PROTIME in the last 72 hours. Current Medications: Scheduled Meds: ??? aspirin 81 mg Oral Daily with breakfast ??? carvedilol 37.5 mg Oral BID ??? cloNIDine HCl 0.1 mg Oral BID ??? entecavir 1 mg Oral DAILY 0600 ??? gabapentin 600 mg Oral TID ??? heparin (porcine) 5,000 Units Subcutaneous 3 times per day ??? insulin lispro 0-10 Units Subcutaneous Nightly (2099) ??? insulin lispro 0-12 Units Subcutaneous TID AC ??? insulin lispro 10 Units Subcutaneous TID WC ??? insulin NPH 35 Units Subcutaneous Nightly (2099) And ??? insulin NPH 65 Units Subcutaneous QAM ??? melatonin 3 mg Oral Nightly (2099) ??? mycophenolate 500 mg Oral BID ? ? nystatin 500,000 Units Swish & Swallow TID ??? pantoprazole 40 mg Oral DAILY 0600 ??? predniSONE 20 mg Oral Daily 0900 ??? sulfamethoxazole-trimethoprim 1 tablet Oral Daily 0900 ??? valGANciclovir 450 mg Oral Daily 0900 Continuous Infusions: PRN Meds: All IV Medications in Normal Saline 0.9%, dextrose 50 % in water (D50W), glucose, ondansetron, oxyCODONE OR oxyCODONE, traMADol OR traMADol Assessment/Plan: Leoncio Rollins is a 42 y.o. 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 - Neuro: pain controlled - Oxycodone, tramadol - melatonin - CV: Hypertension improved - Chest pain 10/20: EKG negative, troponin 0.09, 0.06 - no further workup - Coreg, clonidine, ASA - Pulm: NC 2.5L overnight, wean as tolerated - encourage IS - FEN/GI: - Continue diabetic diet as tolerated - Protonix daily - : voiding spontaneously, Cr 2.24 (1.77) yesterday AM; follow up AM labs - IS: Cellcept 500, prednisone 20, Prograf 01/17 - holding Prograf due to worsening tremors. - ID: entecavir, nystatin soln, Bactrim, Valcyte - Per ID, donor tested positive for Toxo IgM; toxo PCR negative - Febrile yesterday. Blood cultures sent NGTD, UA negative, sputum culture to be collected. WBC wnl. - Endo: BG 304-348 - Increase NPH to 75/40, continue lispro 10u TIDWC + HDSSI - Heme: H/H stable. - PT/OT recs: inpatient rehab - PPx: SQH, SCDs - Dispo: Floor Ginger Conn MD Transplant Surgery Cosigned by Tami Richardson MD at 10/22/2017 9:43 AM EDT Associated attestation - Tami Richardson MD - 10/22/2017 9:43 AM EDT I was present with the resident during the history and exam. I discussed the case with the residentand agree with the findings and plan as documented in the resident???s note. ?? S/p OLT No acute events. Tremors slightly better Hyperglycemic Plan: Hold Prograf. ??Check level. Physical therapy Increase insulin for glucose control Hold Lasix * Arti Triplett MD - 10/21/2017 11:35 AM EST I have not seen patient today, assessment an plan based on chart review. Please feel free call us for questions. Vitals: 10/21/17 0914 BP: Pulse: 87 Resp: 16 Temp: SpO2: 94% 1. Fever in transplant recipient - Patient no longer febrile. I have reviewed CT chest abdomen and pelvis results. No clear evidenceof active infectious process at this point. - Respiratory viral panel was negative - Do not recommend additional antibiotics at this point. - if recurrent fevers, worsening mental status, consider LP with cell count, bacterial cx, Crypto Ag, HSV PCR and hold additional fluid in case further testing needed (considering donor derived) ?? 2. Prophylaxis - Valcyte x6 months for high risk - Bactrim for PCP x3-6 months - high risk donor, consider HCV and HBV PCRs if LFTs increase * Margoth Taylor - 10/21/2017 8:28 AM EST 10/21/17 0800 24 HR Nutrition Analysis Totals 24 HR Total Calories (kcals) 2119 kcals (102% calorie needs met) 24 Hr Total Protein (g) 123.5 g (119% protein needs met) Established Estimated Nutrition Needs: Needs based On: IBW 69.5kg Kcals/day: (30kcal/kg) 2085kcals Protein g/day: (1.5-2.0g/kg)104-139g Carbohydrate g/day: (45% of kcals) 235g Fluid ml/day: 1ml/kcal or as per MD 3 meals recorded for 3/9/18 Includes ate one boost pudding and drank 3 boost glucose control Margoth Taylor DT, LD Pager # [phone] * Priti Macedo MD - 10/21/2017 3:55 AM EST Transplant Surgery Progress Note Patient: Leoncio Rollins Admit Date: 10/07/2017 OR Date: 10/08/2017 Subjective: No acute events overnight. HDS. Maintained on 2.5 L of O2. Objective: Vitals: Temp: [97.6 ??F (36.4 ??C)-99.5 ??F (37.5 ??C)] 97.6 ??F (36.4 ??C) Heart Rate: [71-93] 71 Resp: [16-18] 18 BP: (127-149)/(57-85) 127/71 Date 10/20/17 0700 - 10/21/17 0659 10/21/17 0700 - 10/22/17 0659 Shift 0466-7621 2534-5231 3752-8782 24 Hour Total 8443-6658 1082-3123 2530-4223 24 Hour Total I N T A K E P.O. 0 360 360 P.O. 0 360 360 I.V. (mL/kg) 0 (0) 0 (0) I.V. 0 0 Shift Total (mL/kg) 0 (0) 360 (2.8) 360 (2.8) O U T P U T Urine (mL/kg/hr) 0 (0) 300 (0.3) 300 Urine 0 300 300 Urine Occurrence 0 x 0 x Emesis/NG output 0 0 0 Emesis 0 0 0 Emesis Occurrence 0 x 0 x 0 x Stool 0 0 0 Stool Occurrence 0 x 0 x 0 x Stool 0 0 0 Blood 0 0 Est Blood Loss 0 0 Blood 0 0 Intrauterine 0 0 Myosure Output 0 0 Shift Total (mL/kg) 0 (0) 300 (2.3) 300 (2.3) Weight (kg) 129 129 129 129 129 129 129 129 Physical Exam: Gen: NAD Neuro: improved mental status, answers questions CV: RRR Resp: nonlabored, CTAB Abd: soft, approp TTP, incision with raheel c/d/i Ext: WWPx4, SCDs Skin: warm and dry Labs: Recent Labs 10/18/17 0732 10/19/17 0604 10/20/17 0632 WBC 7.5 5.9 9.2 HGB 7.2* 6.4* 7.2* HCT 20.7* 18.7* 21.4* PLT 189 182 171 Recent Labs 10/18/17 0732 10/19/17 0604 10/20/17 0632 NA 140 139 138 K 3.7 3.6 4.6 CL 103 102 101 CO2 32 30 29 BUN 50* 54* 62* CREATININE 1.56* 1.77* 2.24* GLUCOSE 110* 106* 129* CALCIUM 8.6 8.6 8.4* MG 2.0 2.1 1.9 PHOS 4.8* 5.0* 5.3* Recent Labs 10/19/17 1927 10/19/17 2201 10/20/17 0815 10/20/17 1309 10/20/17201110/20/17 2200 POCGMD 150* 237* 126* 175* 265* 362* Recent Labs 10/18/17 0732 10/19/17 0604 10/20/17 0632 AST 20 15 14 ALT 59* 46 35 BILITOT 0.8 0.7 0.8 BILIDIRECT 0.28 0.36 0.31 ALKPHOS 59 61 61 ALBUMIN 2.6* 2.6* 2.6* 2.6* 2.5* 2.5* No results for input(s): INR, PROTIME in the last 72 hours. Current Medications: Scheduled Meds: ??? aspirin 81 mg Oral Daily with breakfast ??? carvedilol 37.5 mg Oral BID ??? cloNIDine HCl 0.1 mg Oral BID ??? entecavir 1 mg Oral DAILY 0600 ??? gabapentin 600 mg Oral TID ??? heparin (porcine) 5,000 Units Subcutaneous 3 times per day ??? insulin lispro 0-10 Units Subcutaneous Nightly (2099) ??? insulin lispro 0-12 Units Subcutaneous TID AC ??? insulin lispro 5 Units Subcutaneous TID WC ??? insulin NPH 30 Units Subcutaneous Nightly (2099) And ??? insulin NPH 65 Units Subcutaneous QAM ??? melatonin 3 mg Oral Nightly (2099) ??? mycophenolate 500 mg Oral BID ? ? nystatin 500,000 Units Swish & Swallow TID ??? pantoprazole 40 mg Oral DAILY 0600 ??? predniSONE 20 mg Oral Daily 0900 ??? sulfamethoxazole-trimethoprim 1 tablet Oral Daily 0900 ??? valGANciclovir 900 mg Oral Daily 09 Continuous Infusions: PRN Meds: All IV Medications in Normal Saline 0.9%, dextrose 50 % in water (D50W), glucose, ondansetron, oxyCODONE OR oxyCODONE, traMADol OR traMADol Assessment/Plan: Leoncio Rollins is a 42 y.o. 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 Plan: - Neuro: pain controlled - Oxycodone, tramadol - melatonin - CV: Hypertension improved - Chest pain 10/20: EKG negative, troponin 0.09, 0.06 - no further workup - Coreg, clonidine, ASA - Pulm: NC 2.5L overnight, wean as tolerated - encourage IS - FEN/GI: - Continue diabetic diet as tolerated - Protonix daily - : voiding spontaneously, Cr 2.24 (1.77) yesterday AM; follow up AM labs - IS: Cellcept 500, prednisone 20, Prograf 6/6 - holding Prograf due to worsening tremors. 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 Blood cultures sent NGTD, UA negative, sputum culture to be collected. WBC wnl. - Endo: BG 175-362 - NPH 65/30 + lispro 7 TID + HDSSI - Will monitor BGs this AM, may need increased dose with increased prednisone dosing - Heme: H/H stable. - PT/OT recs: inpatient rehab - PPx: SQH, SCDs - Dispo: Floor PRITI MAECDO MD Transplant Surgery TXP1 Pager Cosigned by Tami Richardson MD at 10/21/2017 10:27 AM EST Associated attestation - Tami Richardson MD - 10/21/2017 10:27 AM EST I was present with the resident during the history and exam. I discussed the case with the residentand agree with the findings and plan as documented in the resident???s note. ?? S/p OLT No acute events. Tremors slightly better Plan: Hold Prograf. Check level. Physical therapy Hold Lasix * Judi Johnson - 10/20/2017 2:43 PM EST 10/20/17 1400 24 HR Nutrition Analysis Totals 24 HR Total Calories (kcals) 0 kcals 24 Hr Total Protein (g) 0 g No food records available from 10/19/17. Judi Johnson, DT [phone] * Sheri Malhotra PharmD - 10/20/2017 11:21 AM EST Pharmacy Note Med Teaching ?? Medication instruction card completed according to current inpatient orders and expected additional discharge transplant-related medications. ?? Reviewed medications on card with patient. Information reviewed includes ?? Brand and generic names ?? Strength(s) supplied ?? Dose/frequency ?? Expected duration ?? Other caregivers present: ? Who usually manages patient's medications? ?? Patient, ?? Self medication program (SMP) : ?? Initiated ?? Patient understands the expectation that they are to learn duarte information required to successfully self-medicate prior to discharge to home ?? Status of discharge prescriptions: ?? Patient has [place] Medicaid - prescriptions have been sent to [facility] in [place], [place] ([phone]) ?? Long-term pharmacy plan. ([facility] vs. Other) ?? See above Sheri Malhotra PharmD PGY1 Scientific Programmer Analyst Pager: [phone] Clinical On-Call: [phone] Cosigned by Blake Dang PharmD at 10/24/2017 3:47 PM EDT Associated attestation - Blake Dang PharmD - 10/24/2017 3:47 PM EDT I have overseen the counseling provided by the teacher of gifted students or resident below and attest that the student/resident was adequately prepared to provide education as outlined in the attached note. Christiano Dang, Pharm.D. Clinical Architectural Draftsman, Solid Organ Transplant Pager #[phone] (Clinical Pharmacist economic forecaster pager [phone]) * Gloria Ayers RN - 10/20/2017 7:47 AM EST Patient remained alert and oriented x4 overnight; vitals stable. Patient is voiding well with adequate urine output. Pt complained of chest pain overnight- EKG and troponins ordered. Patient administered medications per eMAR. Moderate/severe involuntary tremor noted upon assessment. Patient left lying in bed, call hill in reach, siderails up x4, bed in lowest position, wheels locked, and pt in noacute distress. Will continue to monitor. * Tam Neil MD - 10/20/2017 6:34 AM EST Transplant Surgery Progress Note Patient: Leoncio Rollins Admit Date: 10/07/2017 OR Date: 10/08/2017 Subjective: Chest pain overnight, troponin 0.09. HDS. Tolerating diet without nausea. On 2.5L NC overnight. Objective: Vitals: Temp: [98.5 ??F (36.9 ??C)-101.8 ??F (38.8 ??C)] 98.5 ??F (36.9 ??C) Heart Rate: [84-106] 93 Resp: [16-24] 16 BP: (93-152)/(45-117) 149/73 Date 10/19/17 0700 - 03/0965810/20/17 07 - 10/21/17 0659 Shift 6170-4167 8893-4103 8084-7836 24 Hour Total 0071-8821 7009-0460 3532-8930 24 Hour Total I N T A K E P.O. 0 0 0 P.O. 0 0 0 I.V. (mL/kg) 20 (0.2) 0 (0) 20 (0.2) I.V. 20 0 20 Shift Total (mL/kg) 20 (0.2) 0 (0) 20 (0.2) O U T P U T Urine (mL/kg/hr) 615 (0.6) 275 (0.3) 225 1115 Urine 615 166 163 1244 Urine Occurrence 0 x 1 x 1 x Emesis/NG output 0 0 0 Emesis 0 0 0 Emesis Occurrence 0 x 0 x 0 x Stool 0 0 0 Stool Occurrence 0 x 0 x 0 x Stool 0 0 0 Blood 0 0 0 Est Blood Loss 0 0 0 Blood 0 0 0 Intrauterine 0 0 0 Myosure Output 0 0 0 Shift Total (mL/kg) 615 (4.8) 275 (2.1) 225 (1.7) 1115 (8.6) Weight (kg) 129 129 129 129 129 129 129 129 Physical Exam: Gen: NAD Neuro: improved mental status, answers questions CV: RRR Resp: nonlabored, CTAB Abd: soft, approp TTP, incision with raheel c/d/i Ext: WWPx4, SCDs Skin: warm and dry Labs: Recent Labs 10/17/17 0647 10/18/17 0732 10/19/17 0604 WBC 5.6 7.5 5.9 HGB 7.1* 7.2* 6.4* HCT 20.9* 20.7* 18.7* PLT 152 189 182 Recent Labs 10/17/17 0647 10/18/17 0732 10/19/17 0604 NA 141 140 139 K 3.6 3.7 3.6 CL 105 103 102 CO2 30 32 30 BUN 47* 50* 54* CREATININE 1.43* 1.56* 1.77* GLUCOSE 103* 110* 106* CALCIUM 8.3* 8.6 8.6 MG 1.9 2.0 2.1 PHOS 3.3 4.8* 5.0* Recent Labs 10/18/17 1848 10/18/17 2247 10/19/17 0844 10/19/17 1356 10/19/17 1927 10/19/17 2201 POCGMD 265* 325* 91 86 150* 237* Recent Labs 10/17/17 0647 10/18/17 0732 10/19/17 0604 AST 23 20 15 ALT 74* 59* 46 BILITOT 0.8 0.8 0.7 BILIDIRECT 0.29 0.28 0.36 ALKPHOS 63 59 61 ALBUMIN 2.5* 2.5* 2.6* 2.6* 2.6* 2.6* No results for input(s): INR, PROTIME in the last 72 hours. Current Medications: Scheduled Meds: ??? aspirin 81 mg Oral Daily with breakfast ??? carvedilol 37.5 mg Oral BID ??? cloNIDine HCl 0.1 mg Oral BID ??? entecavir 1 mg Oral DAILY 0600 ??? gabapentin 600 mg Oral TID ??? heparin (porcine) 5,000 Units Subcutaneous 3 times per day ??? insulin lispro 0-10 Units Subcutaneous Nightly (2099) ??? insulin lispro 0-12 Units Subcutaneous TID AC ??? insulin lispro 5 Units Subcutaneous TID WC ??? insulin NPH 30 Units Subcutaneous Nightly (2099) And ??? insulin NPH 65 Units Subcutaneous QAM ??? melatonin 3 mg Oral Nightly (2099) ??? mycophenolate 500 mg Oral BID ? ? nystatin 500,000 Units Swish & Swallow TID ??? pantoprazole 40 mg Oral DAILY 0600 ??? predniSONE 10 mg Oral Daily 0900 ??? sulfamethoxazole-trimethoprim 1 tablet Oral Daily 0900 ??? tacrolimus 6 mg Oral BID7 ??? valGANciclovir 900 mg Oral Daily 0900 Continuous Infusions: PRN Meds: All IV Medications in Normal Saline 0.9%, dextrose 50 % in water (D50W), glucose, ondansetron, oxyCODONE OR oxyCODONE, traMADol OR traMADol Assessment/Plan: Leoncio Rollins is a 42 y.o. 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 Plan: - Neuro: pain controlled - Oxycodone, tramadol - melatonin - CV: Hypertension improved, chest pain overnight - EKG negative, troponin 0.09 - will trend - Coreg, clonidine, ASA - Pulm: NC 2.5L overnight, wean as tolerated - encourage IS - FEN/GI: - Continue diabetic diet as tolerated - Protonix daily - : voiding spontaneously, Cr 1.77 (1.56) yesterday AM - IS: Cellcept 500, prednisone 20, Prograf 6/6 - hold AM dose Prograf due to worsening tremors - ID: entecavir, nystatin soln, Bactrim, Valcyte -Per ID, donor tested positive for Toxo IgM; toxo PCR negative - Febrile yesterday. Blood cultures sent NGTD, UA negative, sputum culture to be collected. WBC 5.9yesterday, f/u AM results - Endo: BG 91-237s - NPH 65/30 + lispro 5 TID + HDSSI - Heme: f/u AM Hgb - PT/OT recs: inpatient rehab - PPx: SQH, SCDs - Dispo: Floor TAM NEIL MD Transplant Surgery TXP1 Pager Cosigned by Tami Richardson MD at 10/20/2017 11:00 AM EST Associated attestation - Tami Richardson MD - 10/20/2017 11:00 AM EST I was present with the resident during the history and exam. I discussed the case with the residentand agree with the findings and plan as documented in the resident???s note. ?? S/p OLT No acute events. Significant tremors this am. Plan: Hold Prograf. Check level. Physical therapy Hold Lasix ?? * Erica Alves RRT - 10/19/2017 3:50 PM EST Sputum cup left at bedside. * Judi Zapata RD - 10/19/2017 9:20 AM EST TXP-follow up [facility] Medical Nutrition Therapy Follow-Up Diet Order/Nutrition Support: Consistent carbohydrate 0974-9630 kcal, Boost Glucose Control TID, Boost Pudding TID Pertinent Information: Mr. 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 Patient currently on nasal cannula. Hgb is low, receiving blood today. Meal intakes are 100% of meals, per flow sheet. Patient was sitting in chair at time of visit, at bedside. Patient states his appetite is good. He is drinking ~2 Boost or Boost Pudding per day. Ordering 3 meals per day with 75-100% consumed. Patient meal tray at bedside with omelette, sausage links, and biscuits, which had not been eaten yet. Patient stated the biscuit was too dry. Encouraged him to eat the omelette and order 2 more mealswith protein the rest of the day. Patient with 2 Boost supplements at bedside, encouraged him to drink as needed. +BM: 10/16. Patient denies nausea or vomiting. Patient and with no nutrition questions at this time. Admit Weight: 256 lb Current Weight: 284 lb Scheduled Meds: ??? aspirin 81 mg Oral Daily with breakfast ??? carvedilol 37.5 mg Oral BID ??? cloNIDine HCl 0.1 mg Oral BID ??? entecavir 1 mg Oral DAILY 0600 ??? furosemide (LASIX) injection 40 mg Intravenous Once ??? gabapentin 600 mg Oral TID ??? heparin (porcine) 5,000 Units Subcutaneous 3 times per day ??? insulin lispro 0-10 Units Subcutaneous Nightly (2099) ??? insulin lispro 0-12 Units Subcutaneous TID AC ??? insulin lispro 5 Units Subcutaneous TID WC ??? insulin NPH 45 Units Subcutaneous Nightly (2099) And ??? insulin NPH 65 Units Subcutaneous QAM ??? melatonin 3 mg Oral Nightly (2099) ??? mycophenolate 500 mg Oral BID ? ? nystatin 500,000 Units Swish & Swallow TID ??? pantoprazole 40 mg Oral DAILY 0600 ??? predniSONE 10 mg Oral Daily 0900 ??? sulfamethoxazole-trimethoprim 1 tablet Oral Daily 0900 ??? tacrolimus 6 mg Oral BID7 ??? valGANciclovir 900 mg Oral Daily 0900 Continuous Infusions: PRN Meds:All IV Medications in Normal Saline 0.9%, dextrose 50 % in water (D50W), glucose, ondansetron, oxyCODONE OR oxyCODONE, traMADol OR traMADol Pertinent Labs: Lab Results Component Value Date CREATININE 1.77 (H) 10/19/2017 BUN 54 (H) 10/19/2017 NA 139 10/19/2017 K 3.6 10/19/2017 CL 102 10/19/2017 CO2 30 10/19/2017 Lab Results Component Value Date CALCIUM 8.6 10/19/2017 PHOS 5.0 (H) 10/19/2017 Lab Results Component Value Date MG 2.1 10/19/2017 Lab Results Component Value Date ALKPHOS 61 10/19/2017 ALT 46 10/19/2017 AST 15 10/19/2017 BILITOT 0.7 10/19/2017 ALBUMIN 2.6 (L) 10/19/2017 ALBUMIN 2.6 (L) 10/19/2017 BILIDIRECT 0.36 10/19/2017 PROT 4.8 (L) 10/19/2017 Lab Results Component Value Date GLUCOSE 106 (H) 10/19/2017 Component Value Date/Time POCGMD 91 10/19/2017 0844 POCGMD 325 (H) 10/18/2017 2247 POCGMD 265 (H) 10/18/2017 1848 POCGMD 211 (H) 10/18/2017 1324 POCGMD 114 (H) 10/18/2017 0858 POCGLU 225 (H) 10/08/2017 1232 POCGLU 218 (H) 10/08/2017 1138 POCGLU 167 (H) 10/08/2017 1109 POCGLU 178 (H) 10/08/2017 1004 POCGLU 176 (H) 10/08/2017 0903 Lab Results Component Value Date HGBA1C 5.4 10/09/2017 Lab Results Component Value Date WBC 5.9 10/19/2017 100.2 ??F (37.9 ??C) (Oral) Ht Readings from Last 1 Encounters: 10/10/17 5' 7 (1.702 m) Wt Readings from Last 3 Encounters: 10/18/17 (!) 284 lb 8 oz (129 kg) 10/02/17 (!) 251 lb (113.9 kg) 08/31/17 (!) 255 lb (115.7 kg) Body mass index is 44.56 kg/m??. Skin: abdominal incision Established Estimated Nutrition Needs: Needs based On: IBW 69.5kg Kcals/day: (30kcal/kg) 2085kcals Protein g/day: (1.5-2.0g/kg)104-139g Carbohydrate g/day: (45% of kcals) 235g Fluid ml/day: 1ml/kcal or as per MD Nutrition Diagnosis: Increased kcal/protein needs ?? Related To: Increased demand for nutrients As Evidenced By: Recent liver transplant, medically complex Nutrition Diagnosis: Food- and nutrition-related knowledge deficit Related to:?? Exposure to new information As evidenced by: Recent liver transplant and subsequent need for medical nutrition therapy education Established Nutrition Intervention: Change Current Diet Order, Add/Change Medical Food Supplement/Snack, Monitor PO Intake/Tolerance and Education/Counseling: post txp nutrition Established Goals: ??Total energy intake improved as evidenced by PO intake at least 50-75% of meals/supplements/snacks within -1-3??days and Voices/demonstrates knowledge of post txp??education/counseling Goals: Met, Ongoing Nutrition Status Classification: Severely Compromised Coordination of Nutrition Care: Currently there are no further barriers to discharge from a nutrition perspective and will further assess patient on an as needed basis as identified by the transplantmultidisciplinary team This information has been communicated to the transplant multidisciplinary team Follow up: per policy while inpatient. If patient is discharged dietitian will be available for consultation on an as needed basis as identified by the multidisciplinary team. Additional Recommendation(s) to Physicians: ?? Continue current diet and supplements ?? Continue to monitor and encourage PO intake Judi Zapata, Alodize Machine Helper Cosigned by Aj Govea RD at 10/19/2017 1:53 PM EST Associated attestation - Aj Govea RD - 10/19/2017 1:53 PM EST I agree with the nutrition assessment and recommendations made by Judi Zapata, Alodize Machine Helper. Aj Govea MS, RD, LD Clinical Dietitian Pager #[phone] * Abbie Paz OTR - 10/19/2017 7:51 AM EST Occupational Therapy/Physical Therapy Reason Patient Not Seen Name: Leoncio Rollins : 1975 Attending Physician: David Mendenhall MD Admission Diagnosis: S/P liver transplant ([facility] Dx) [Z94.4] Date: 10/19/2017 Precautions: Precautions: No limitations Reviewed Pertinent hospital course: Yes Unable to see patient due to: pt's hemoglobin 6.4, will HOLD and f/u as appropriate. Abbie Paz OTR/L Occupational Therapy (p) [phone] * Tam Neil MD - 10/19/2017 6:08 AM EST Transplant Surgery Progress Note Patient: Leoncio Rollins Admit Date: 10/07/2017 OR Date: 10/08/2017 Subjective: SHARON overnight. HDS. Tolerating diet without nausea. On 2L NC overnight. Objective: Vitals: Temp: [98.3 ??F (36.8 ??C)-99.3 ??F (37.4 ??C)] 98.3 ??F (36.8 ??C) Heart Rate: [69-92] 92 Resp: [17-22] 18 BP: (129-174)/(72-89) 139/72 Date 10/18/17 07 - 10/19/17 0659 10/19/17 07 - 10/20/17 0659 Shift 8797-4328 9370-0116 7630-1311 24 Hour Total 2417-8245 0640-6633 8255-9610 24 Hour Total I N T A K E P.O. 720 120 840 P.O. 720 120 840 Shift Total (mL/kg) 720 (5.6) 120 (0.9) 840 (6.5) O U T P U T Urine (mL/kg/hr) 400 (0.4) 450 (0.4) 100 950 Urine 400 450 100 950 Shift Total (mL/kg) 400 (3.1) 450 (3.5) 100 (0.8) 950 (7.4) Weight (kg) 129 129 129 129 129 129 129 129 Physical Exam: Gen: NAD Neuro: improved mental status, answers questions CV: RRR Resp: nonlabored, CTAB Abd: soft, approp TTP, incision with raheel c/d/i Ext: WWPx4, SCDs Skin: warm and dry Labs: Recent Labs 10/16/17 0642 10/17/17 0647 10/18/17 0732 WBC 7.2 5.6 7.5 HGB 7.8* 7.1* 7.2* HCT 22.7* 20.9* 20.7* PLT 139* 152 189 Recent Labs 10/16/17 0642 10/17/17 0647 10/18/17 0732 NA 141 141 140 K 3.6 3.6 3.7 CL 107 105 103 CO2 30 30 32 BUN 53* 47* 50* CREATININE 1.46* 1.43* 1.56* GLUCOSE 116* 103* 110* CALCIUM 8.4* 8.3* 8.6 MG 2.2 1.9 2.0 PHOS 3.1 3.3 4.8* Recent Labs 10/17/17 1822 10/17/17 2142 10/18/17 0858 10/18/17 1324 10/18/17 1848 10/18/17 2247 POCGMD 282* 307* 114* 211* 265* 325* Recent Labs 10/16/17 0642 10/17/17 0647 10/18/17 0732 AST 24 23 20 ALT 95* 74* 59* BILITOT 0.9 0.8 0.8 BILIDIRECT 0.28 0.29 0.28 ALKPHOS 70 63 59 ALBUMIN 2.6* 2.6* 2.5* 2.5* 2.6* 2.6* No results for input(s): INR, PROTIME in the last 72 hours. Current Medications: Scheduled Meds: ??? aspirin 81 mg Oral Daily with breakfast ??? carvedilol 37.5 mg Oral BID ??? cloNIDine HCl 0.1 mg Oral BID ??? entecavir 1 mg Oral DAILY 0600 ??? gabapentin 600 mg Oral TID ??? heparin (porcine) 5,000 Units Subcutaneous 3 times per day ??? insulin lispro 0-10 Units Subcutaneous Nightly (2099) ??? insulin lispro 0-12 Units Subcutaneous TID AC ??? insulin lispro 5 Units Subcutaneous TID WC ??? insulin NPH 40 Units Subcutaneous Nightly (2099) And ??? insulin NPH 65 Units Subcutaneous QAM ??? melatonin 3 mg Oral Nightly (2099) ??? mycophenolate 500 mg Oral BID ? ? nystatin 500,000 Units Swish & Swallow TID ??? pantoprazole 40 mg Oral DAILY 0600 ??? predniSONE 20 mg Oral Daily 09 ??? sulfamethoxazole-trimethoprim 1 tablet Oral Daily 0900 ??? tacrolimus 6 mg Oral BID7 ??? valGANciclovir 900 mg Oral Daily 0900 Continuous Infusions: PRN Meds: All IV Medications in Normal Saline 0.9%, dextrose 50 % in water (D50W), glucose, ondansetron, oxyCODONE OR oxyCODONE, traMADol OR traMADol Assessment/Plan: Leoncio Rollins is a 42 y.o. 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 Plan: - Neuro: pain controlled - Oxycodone, tramadol - melatonin - CV: Hypertension improved - Coreg, clonidine, ASA - Pulm: RA this AM, continue to hold NC if O2 sat > 90% - encourage IS - FEN/GI: - Continue diabetic diet as tolerated - Protonix daily - : voiding spontaneously, Cr 1.56 yesterday AM - IS: Cellcept 500, prednisone 20, Prograf 6/6 - ID: entecavir, nystatin soln, Bactrim, Valcyte -Per ID, donor tested positive for Toxo IgM; toxo PCR negative - Endo: BG 110-325s - NPH 65/40 with HDSSI. BG 325 in evening time, will increase evening NPH to 45. - Heme: f/u AM Hgb - PT/OT recs: inpatient rehab - PPx: SQH, SCDs - Dispo: Floor TAM NEIL MD Transplant Surgery TXP1 Pager Cosigned by Tami Richardson MD at 10/19/2017 2:42 PM EST Associated attestation - Tami Richardson MD - 10/19/2017 2:42 PM EST I was present with the resident during the history and exam. I discussed the case with the residentand agree with the findings and plan as documented in the resident???s note. S/p OLT No acute events. Complaining of being on oxygen. States he wants to go home. Plan: Anemia - multifactorial- transfuse 2 units with lasix in between Physical therapy Will look for rehab placement. * Dominic Anna - 10/18/2017 10:42 AM EST CMU orders verified. * Kelly Jones, PT - 10/18/2017 10:08 AM EST Physical Therapy Inpatient Physical Therapy Treatment Note Name: Leoncio Rollins :1975 Attending Physician: David Mendenhall MD Admitting Diagnosis: S/P liver transplant ([facility] Dx) [Z94.4] Date: 10/18/2017 Room: [address] [place] [address] Hospital Course PT/OT: Pt is 42 y.o. 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 Intubated 09/18, extubated 10/09. Continued AMS, (-) MRI/Head CT. PMH: acute pancreatitis, ascites, DM, GERD, hepatic encephalopathy, HTN, SAL, vitamin D deficiency. Precautions: No limitations Activity level: activity as tolerated Assessment: Pt confused but cooperative with encouragement. Pt required increased assistance for mobility/ambulation this date. Pt able to ambulate ~5' with moderate assistance. Recommendations: Recommendation: IP Rehab AM-PAC 6 Clicks Basic Mobility Inpatient Short Form: PT 6 Clicks Score: 15 Equipment Recommended: Defer at this time Mobility Recommendations for Staff: Patient transfers to chair/bedside commode with 2 person assist rolling walker if available Present Cognitive Status: Patient is oriented to person- further orientation questions not addressed. Patient is alert, distracted, confused and lacking safety awareness. Patient is able to follow all commands. Pain: Patient reports pain at 8/10 in back and pain is described as aching Pain interventions: repositioned and activity increased Treatment: Functional Mobility: Bed mobility = Patient transitions from supine to sit with minimal assistance and HOB elevated Sit to stand = Patient transfers from sit to stand with minimal assistance Gait = Patient ambulates 5 ft. with moderate assistance using rolling walker . Gait deviations include: pt unsteady and reports feeling limited 2/2 back pain. Pt became very unsteady and reported feeling like he needed to sit down. encouraged pt to walk back to bed but pt proceeded to sit down on floor- PT assisted pt to floor with use of gait belt. Pt able to stand from floor and ambulate back to bed with moderate assist. No injury noted. RN aware. Balance: Static sitting = performs initial min-mod assist progressing to supervision Dynamic sitting = performs with contact guard assistance Static standing = performs with minimal assistance using rolling walker Dynamic standing = performs with moderate assistance using rolling walker Positioning: Patient left in bed at end of session, call light/ needs left within reach. Bed alarm activated andinterfaced with call system. Goals: Patient met no goal(s) this date. Updated/active goals below: To be met by: 10/19/2017 ?? Bed mobility = Patient will transition from supine to sit with CGA Sit to stand = Patient will transfer from sit to stand with CGA Gait = Patient amb 200' with CGA using RW ?? Long-term goal??(to be met by 10/27/2017): Patient will transition from supine to sit with supervision Above goals discussed with patient -- Yes. Patient/Family Education: Educated patient on the role of physical therapy, goals, plan of care, importance of increased activity, discharge recommendations, transfer training and gait training and fall prevention strategies,including need for supervision/ assistance with OOB activity and use of call light; patient verbalized understanding, demonstrated understanding and needed cues. Handout(s) issued: none. Plan: Continue plan of care, at least 3 time(s) per week. The plan of care and recommendations assesses the patient's and/or caregiver's readiness, willingness, and ability to provide or support functional mobility and ADL tasks as needed upon discharge. Signed: Kelly Jones PT, DPT Physical Therapist Pager: Patient class: Inpatient Start Time: 931 Stop Time: 1000 Time Calculation (min): 28 min Units Rendered: $Gait/Mobility: 8-22 mins $Therapeutic Activity: 1 unit PMH: Past Medical History: Diagnosis Date ??? Acute pancreatitis ??? Ascites ??? Diabetes mellitus (CMS Dx) ??? Esophageal varices with bleeding (CMS Dx) ??? GERD (gastroesophageal reflux disease) ??? Hepatic encephalopathy (CMS Dx) ??? Hypertension ??? 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 Vitamin D deficiency PSH: Past Surgical History: Procedure Laterality Date ??? LIVER TRANSPLANTATION N/A 10/08/2017 Procedure: TRANSPLANT LIVER; Surgeon: David Mendenhall MD; Location: OR; Service: Transplant; Laterality: N/A; ??? TIPS PROCEDURE 10/2016 ??? TIPS Revision 04/2017 * Nadya Mathew - 10/18/2017 8:11 AM EST 10/18/17 0800 24 HR Nutrition Analysis Totals 24 HR Total Calories (kcals) 0 kcals 24 Hr Total Protein (g) 0 g No records saved to calculate PO intake for 10/17/17 calorie count Nadya Mathew,DTR [phone] * Tma Neil MD - 10/18/2017 6:18 AM EST Transplant Surgery Progress Note Patient: Leoncio Rollins Admit Date: 10/07/2017 OR Date: 10/08/2017 Subjective: Chest pain overnight, cardiac workup negative. HDS. Tolerating diet without nausea. Objective: Vitals: Temp: [98.3 ??F (36.8 ??C)-99.5 ??F (37.5 ??C)] 99.5 ??F (37.5 ??C) Heart Rate: [83-123] 92 Resp: [17-18] 18 BP: (113-166)/(71-107) 166/89 Date 10/17/17 0700 - 10/18/17 0659 10/18/17 0700 - 10/19/17 0659 Shift 9724-0886 9985-5622 4139-0407 24 Hour Total 4595-9062 8366-0595 4763-2043 24 Hour Total I N T A K E P.O. 600 600 P.O. 600 600 Shift Total (mL/kg) 600 (4.7) 600 (4.6) O U T P U T Urine (mL/kg/hr) 575 (0.6) 300 (0.3) 875 Urine 575 300 875 Stool 0 0 Stool 0 0 Shift Total (mL/kg) 575 (4.5) 300 (2.4) 875 (6.8) Weight (kg) 127.1 127.1 129 129 129 129 129 129 Physical Exam: Gen: NAD Neuro: improved mental status, answers questions CV: RRR Resp: nonlabored, CTAB Abd: soft, approp TTP, incision with raheel c/d/i Ext: WWPx4, SCDs Skin: warm and dry Labs: Recent Labs 10/16/17 0642 10/17/17 0647 WBC 7.2 5.6 HGB 7.8* 7.1* HCT 22.7* 20.9* PLT 139* 152 Recent Labs 10/16/17 0642 10/17/17 0647 NA 141 141 K 3.6 3.6 CL 107 105 CO2 30 30 BUN 53* 47* CREATININE 1.46* 1.43* GLUCOSE 116* 103* CALCIUM 8.4* 8.3* MG 2.2 1.9 PHOS 3.1 3.3 Recent Labs 10/17/17 0557 10/17/17 0827 10/17/17 1314 10/17/17 1621 10/17/17 1822 10/17/17 2142 POCGMD 102* 104* 178* 260* 282* 307* Recent Labs 10/16/17 0642 10/17/17 0647 AST 24 23 ALT 95* 74* BILITOT 0.9 0.8 BILIDIRECT 0.28 0.29 ALKPHOS 70 63 ALBUMIN 2.6* 2.6* 2.5* 2.5* No results for input(s): INR, PROTIME in the last 72 hours. Current Medications: Scheduled Meds: ??? aspirin 81 mg Oral Daily with breakfast ??? carvedilol 37.5 mg Oral BID ??? cloNIDine HCl 0.1 mg Oral BID ??? entecavir 1 mg Oral DAILY 0600 ??? gabapentin 600 mg Oral TID ??? heparin (porcine) 5,000 Units Subcutaneous 3 times per day ??? insulin lispro 0-10 Units Subcutaneous Nightly (2099) ??? insulin lispro 0-12 Units Subcutaneous TID AC ??? insulin NPH 40 Units Subcutaneous Nightly (2099) And ??? insulin NPH 65 Units Subcutaneous QAM ??? melatonin 3 mg Oral Nightly (2099) ??? methocarbamol 500 mg Oral Once ??? mycophenolate 500 mg Oral BID ? ? nystatin 500,000 Units Swish & Swallow TID ??? pantoprazole 40 mg Oral DAILY 0600 ??? predniSONE 20 mg Oral Daily 0900 ??? sulfamethoxazole-trimethoprim 1 tablet Oral Daily 0900 ??? tacrolimus 6 mg Oral BID7 ??? valGANciclovir 900 mg Oral Daily 0900 Continuous Infusions: PRN Meds: All IV Medications in Normal Saline 0.9%, dextrose 50 % in water (D50W), glucose, ondansetron, oxyCODONE OR oxyCODONE, traMADol OR traMADol Assessment/Plan: Leoncio Rollins is a 42 y.o. 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 Plan: - Neuro: pain controlled - Oxycodone, tramadol - melatonin - CV: Hypertension improved - Coreg, clonidine, ASA - Pulm: RA this AM, continue to hold NC if O2 sat > 90% - encourage IS - FEN/GI: - Continue diabetic diet as tolerated - Protonix daily - : voiding spontaneously - CARMEN resolving, f/u AM Cr - IS: Cellcept, prednisone 20, Prograf 6/6 - ID: entecavir, nystatin soln, Bactrim, Valcyte -Per ID, donor tested positive for Toxo IgM; toxo PCR negative - Endo: BG 100-280s - Increase to NPH 65/40 with HDSSI - Heme: f/u AM Hgb - PT/OT recs: inpatient rehab - PPx: [facility], [facility] - Dispo: Floor TAM NEIL MD Transplant Surgery TXP1 Pager Cosigned by Tami Richardson MD at 10/18/2017 5:06 PM EST Associated attestation - Tami Richardson MD - 10/18/2017 5:06 PM EST I was present with the resident during the history and exam. I discussed the case with the residentand agree with the findings and plan as documented in the resident???s note. S/p OLT No complaints. Plan: Needs physical therapy May need to go to rehab * Abbie Paz, OTR - 10/17/2017 1:49 PM EST Occupational Therapy Progress Note Name: Leoncio Rollins :1975 Attending Physician: David Mendenhall MD Admitting Diagnosis: S/P liver transplant (HCC) [Z94.4] Date: 10/17/2017 Room: [address] [place] [address] Hospital Course PT/OT: Pt is 42 y.o. 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 Intubated 09/18, extubated 10/09. Continued AMS, (-) MRI/Head CT. PMH: acute pancreatitis, ascites, DM, GERD, hepatic encephalopathy, HTN, SAL, vitamin D deficiency. Precautions: No limitations Activity Level: activity as tolerated Recommendation Recommendation: IP Rehab Equipment Recommended: Defer at this time AM-PAC 6 Clicks Daily Activity Inpatient Short Form: OT 6 Clicks Score: 13 Cognitive Status Patient is oriented to to person, to place and to situation. Patient is alert, cooperative and distracted. Patient is able to follow all commands. ADLs and Functional Mobility Feeding: Independent Pt and patient's asking about possibility of discharging home from hospital instead of a facility. Educated on need to demonstrate safe technique together for patient to complete needed ADLs. Pt's reports she and son will be there all the time and she has been able to assist with mobilityand toileting during admission. Pt and pt's educated on need to demonstrate additional ADLs/bed mobility/showering before new discharge recommendation could be submitted. Pt adamant about not completing at this time I have to eat my lunch right now, I'm so anxious. Pt and pt's asking questions regarding home equipment, education provided but explanation provided that additional functional mobility/ADLS much be completed with therapy prior to additional equipment recs. Pt and pt's DU and pt asked to work at another time I need to eat my lunch. Pain Patient denies pain. Pain interventions: repositioned and activity increased Positioning Patient left in chair at end of session, visitor(s) present and call light/ needs left within reach. Chair alarm unchanged from previous setting. Assessment Pt limited by need to eat lunch despite encouragement to participate in functional tasks. Educationprovided as needed. Will cont' to work towards established goals. Goals To be met in: 1 week Patient will complete supine to sit with contact guard assistance (previous goal met 3/5) Patient will complete sit to stand with contact guard assistance (goal met/upgraded /) Patient will complete chair transfer :with supervision with or without A/D. Patient will complete LE ADLs with minimal assistance. (previous goal met 3/5) ?? Long-term goal: Patient will tolerate toilet transfers assessment??(to be met in 2 weeks) ?? Patient stated goals: to go home? Rehabilitation Potential (for above goals): good Patients and/or caregivers as well as practitioners mutually agreed upon the above goals. Plan Pt to be seen a minimum of 3 time(s) per week. Patient/Family Education Educated patient on the role of occupational therapy, OT goals, OT plan of care, discharge recommendation, ADL training and functional mobility training and fall prevention strategies including need for supervision/ assistance with OOB activity and use of call light. patient verbalized understanding and demonstrated understanding. The plan of care assesses the patient's and/or caregiver's readiness, willingness, and ability to provide or support functional mobility and ADL tasks as needed upon discharge. Abbie Paz OTR/L Occupational Therapy (p) [phone] Patient Class: Inpatient Time Start Time: 1320 Stop Time: 1337 Time Calculation (min): 17 min Charges $Therapeutic Activity: 8-22 mins PMH: Past Medical History: Diagnosis Date ??? Acute pancreatitis ??? Ascites ??? Diabetes mellitus (HCC) ??? Esophageal varices with bleeding (HCC) ??? GERD (gastroesophageal reflux disease) ??? Hepatic encephalopathy (HCC) ??? Hypertension ??? 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 Vitamin D deficiency PSH: Past Surgical History: Procedure Laterality Date ??? LIVER TRANSPLANTATION N/A 10/08/2017 Procedure: TRANSPLANT LIVER; Surgeon: David Mendenhall MD; Location: OR; Service: Transplant; Laterality: N/A; ??? TIPS PROCEDURE 10/2016 ??? TIPS Revision 04/2017 * Juid Johnson - 10/17/2017 1:05 PM EST 10/17/17 1300 24 HR Nutrition Analysis Totals 24 HR Total Calories (kcals) 0 kcals 24 Hr Total Protein (g) 0 g No food records available from 10/16/17 calorie counts. Judi Johnson, DT [phone] * Mandi Cazares PharmD - 10/17/2017 8:14 AM EST Transplant Pharmacy Note Transplant pharmacy is following Leoncio Rollins during hospital admission and will perform the following activities related to transplant pharmacotherapy: 1. Ensure appropriate management and titration of immunosuppressive, prophylactic, and other supportive care medications; 2. Monitor for any adverse drug effects; 3. Review the patient's medication profile for any potential drug interaction. For issues not related to transplantation, please contact the clinical pharmacist assigned to the primary service. Mandi Cazares PharmD Transplant Pharmacy Specialty Resident Desk Pager: [phone] * Tam Neil MD - 10/17/2017 6:20 AM EST Transplant Surgery Progress Note Patient: Leoncio Rollins Admit Date: 10/07/2017 OR Date: 10/08/2017 Subjective: SHARON overnight. HDS. Increased pain overnight, controlled with PRN medication. Tolerating diet, no nausea. Objective: Vitals: Temp: [98 ??F (36.7 ??C)-99.4 ??F (37.4 ??C)] 98.3 ??F (36.8 ??C) Heart Rate: [84-96] 84 Resp: [16-18] 18 BP: (136-184)/(63-88) 144/63 Date 10/16/17 0700 - 10/17/17 0659 10/17/17 0700 - 10/18/17 0659 Shift 2889-5554 3487-2686 5315-5948 24 Hour Total 5195-6452 2541-8589 9321-0716 24 Hour Total I N T A K E P.O. 240 360 600 P.O. 240 360 600 Shift Total (mL/kg) 240 (1.8) 360 (2.7) 600 (4.4) O U T P U T Urine (mL/kg/hr) 1070 (1) 1075 (1) 675 2820 Urine 1070 7645 148 6467 Shift Total (mL/kg) 1070 (7.9) 1075 (7.9) 675 (5) 2820 (20.8) Weight (kg) 135.8 135.8 135.8 135.8 135.8 135.8 135.8 135.8 Physical Exam: Gen: NAD Neuro: improved mental status, answers questions CV: RRR Resp: nonlabored, CTAB Abd: soft, approp TTP, incision with raheel c/d/i, mine x 1 serosang Ext: WWPx4, SCDs Skin: warm and dry Labs: Recent Labs 10/15/17 03510/16/17 0642 WBC 5.7 7.2 HGB 7.3* 7.8* HCT 20.6* 22.7* PLT 79* 139* Recent Labs 10/14/17 0649 10/15/17 0357 10/16/17 0642 NA 136 136 141 K 4.1 3.9 3.6 CL 104 106 107 CO2 30 30 30 BUN 59* 57* 53* CREATININE 1.46* 1.45* 1.46* GLUCOSE 212* 171* 116* CALCIUM 7.7* 8.0* 8.4* MG 2.3 2.3 2.2 PHOS 3.0 2.9 3.1 Recent Labs 10/16/17 0618 10/16/17 0758 10/16/17 1205 10/16/17 1745 10/16/17 2142 10/17/17 0557 POCGMD 112* 136* 165* 277* 196* 102* Recent Labs 10/14/17 0649 10/15/17 0357 10/16/17 0642 AST 28 27 24 ALT 111* 112* 95* BILITOT 0.8 0.7 0.9 BILIDIRECT 0.21 0.27 0.28 ALKPHOS 54 64 70 ALBUMIN 2.2* 2.2* 2.3* 2.3* 2.6* 2.6* No results for input(s): INR, PROTIME in the last 72 hours. Current Medications: Scheduled Meds: ??? aspirin 81 mg Oral Daily with breakfast ??? carvedilol 37.5 mg Oral BID ??? cloNIDine HCl 0.1 mg Oral BID ??? entecavir 1 mg Oral DAILY 0600 ??? gabapentin 600 mg Oral TID ??? heparin (porcine) 5,000 Units Subcutaneous 3 times per day ??? insulin lispro 0-10 Units Subcutaneous Nightly (2099) ??? insulin lispro 0-12 Units Subcutaneous TID AC ??? insulin NPH 65 Units Subcutaneous QAM And ??? insulin NPH 50 Units Subcutaneous Nightly (2099) ??? melatonin 3 mg Oral Nightly (2099) ??? mycophenolate 500 mg Oral BID ? ? nystatin 500,000 Units Swish & Swallow TID ??? pantoprazole 40 mg Oral DAILY 0600 ??? predniSONE 20 mg Oral Daily 0900 ??? sulfamethoxazole-trimethoprim 1 tablet Oral Daily 0900 ??? tacrolimus 5 mg Oral BID7 ??? valGANciclovir 900 mg Oral Daily 0900 Continuous Infusions: PRN Meds: All IV Medications in Normal Saline 0.9%, dextrose 50 % in water (D50W), glucose, ondansetron, oxyCODONE OR oxyCODONE, traMADol OR traMADol Assessment/Plan: Leoncio Rollins is a 42 y.o. 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 Plan: - Neuro: pain controlled - Oxycodone, tramadol - melatonin - CV: Hypertension improved - Coreg, clonidine, ASA - Pulm: on 1L NC, wean as tolerated - encourage IS - FEN/GI: - Continue diabetic diet as tolerated - Protonix daily - : voiding spontaneously - CARMEN resolving, f/u AM Cr - IS: Cellcept, Solumedrol - Prograf 5/5, follow level - ID: entecavir, nystatin soln, Bactrim, Valcyte -Per ID, donor tested positive for Toxo IgM; toxo PCR sent - in process, continue Bactrim daily - Endo: BG 100-280s - Increase to NPH 60/50 with sliding scale - Heme: No indication for trasfusion - PT/OT recs: inpatient rehab - PPx: [facility], [facility] - Dispo: Floor TAM NEIL MD Transplant Surgery [id number] Pager Cosigned by Tami Richardson MD at 10/17/2017 4:40 PM EST Associated attestation - Tami Richardson MD - 10/17/2017 4:40 PM EST I was present with the resident during the history and exam. I discussed the case with the residentand agree with the findings and plan as documented in the resident???s note. * Samantha Campos RN - 10/17/2017 6:10 AM EST Pt c/o 05/23 R abd pain, nausea, and general malaise. Po pain meds adm with effective results. NO for sublingual Zofran. BS checked 102. * Fox Han MD - 10/16/2017 2:28 PM EST Transplant Surgery Progress Note Patient: Leoncio Rollins Admit Date: 10/07/2017 OR Date: 10/08/2017 Subjective: SHARON overnight. HDS. Objective: Vitals: Temp: [97.8 ??F (36.6 ??C)-98.3 ??F (36.8 ??C)] 98 ??F (36.7 ??C) Heart Rate: [83-96] 96 Resp: [16-18] 17 BP: (136-189)/(67-90) 163/68 Date 10/15/17 0700 - 10/16/17 0659 10/16/17 0700 - 10/17/17 0659 Shift 0898-1537 7745-7815 0971-2405 24 Hour Total 7916-7228 9954-9082 7531-0570 24 Hour Total I N T A K E P.O. 360 600 960 P.O. 360 600 960 Shift Total (mL/kg) 360 (2.7) 600 (4.4) 960 (7.1) O U T P U T Urine (mL/kg/hr) 900 (0.8) 825 (0.8) 900 (0.8) 2625 (0.8) 1070 1070 Urine 900 178 990 0417 1070 1070 Urine Occurrence 3 x 1 x 4 x Emesis/NG output Emesis Occurrence 0 x 0 x Stool Stool Occurrence 1 x 1 x Shift Total (mL/kg) 900 (6.6) 825 (6.1) 900 (6.6) 2625 (19.3) 1070 (7.9) 1070 (7.9) Weight (kg) 135.8 135.8 135.8 135.8 135.8 135.8 135.8 135.8 Physical Exam: Gen: NAD Neuro: improved mental status, answers questions CV: RRR Resp: nonlabored, CTAB Abd: soft, approp TTP, incision with raheel c/d/i, mine x 1 serosang Ext: WWPx4, SCDs Skin: warm and dry Labs: Recent Labs 10/14/17 0600 10/15/17 0357 10/16/17 0642 WBC 5.4 5.7 7.2 HGB 6.9* 7.3* 7.8* HCT 19.6* 20.6* 22.7* PLT 54* 79* 139* Recent Labs 10/14/17 0649 10/15/17 0357 10/16/17 0642 NA 136 136 141 K 4.1 3.9 3.6 CL 104 106 107 CO2 30 30 30 BUN 59* 57* 53* CREATININE 1.46* 1.45* 1.46* GLUCOSE 212* 171* 116* CALCIUM 7.7* 8.0* 8.4* MG 2.3 2.3 2.2 PHOS 3.0 2.9 3.1 Recent Labs 10/15/17203610/15/178 10/16/17 0014 10/16/1718 10/16/17 0758 10/16/17 1205 POCGMD 455* 443* 296* 112* 136* 165* Recent Labs 10/14/17 0649 10/15/17 0357 10/16/17 0642 AST 28 27 24 ALT 111* 112* 95* BILITOT 0.8 0.7 0.9 BILIDIRECT 0.21 0.27 0.28 ALKPHOS 54 64 70 ALBUMIN 2.2* 2.2* 2.3* 2.3* 2.6* 2.6* No results for input(s): INR, PROTIME in the last 72 hours. Current Medications: Scheduled Meds: ??? aspirin 81 mg Oral Daily with breakfast ??? carvedilol 37.5 mg Oral BID ??? cloNIDine HCl 0.1 mg Oral BID ??? entecavir 1 mg Oral DAILY 0600 ??? gabapentin 600 mg Oral TID ??? heparin (porcine) 5,000 Units Subcutaneous 3 times per day ??? insulin lispro 0-10 Units Subcutaneous Nightly (2099) ??? insulin lispro 0-12 Units Subcutaneous TID AC ??? [START ON 10/17/2017] insulin NPH 65 Units Subcutaneous QAM And ??? insulin NPH 50 Units Subcutaneous Nightly (2099) ??? melatonin 3 mg Oral Nightly (2099) ??? mycophenolate 500 mg Oral BID ? ? nystatin 500,000 Units Swish & Swallow TID ??? pantoprazole 40 mg Oral DAILY 0600 ??? predniSONE 20 mg Oral Daily 0900 ??? sulfamethoxazole-trimethoprim 1 tablet Oral Daily 0900 ??? tacrolimus 4 mg Oral BID7 ??? valGANciclovir 900 mg Oral Daily 0900 Continuous Infusions: PRN Meds: All IV Medications in Normal Saline 0.9%, dextrose 50 % in water (D50W), glucose, hydrALAZINE, labetalol, oxyCODONE OR oxyCODONE, traMADol OR traMADol Assessment/Plan: Leoncio Rollins is a 42 y.o. 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 Plan: - Neuro: - Oxycodone, tramadol, Neurontin - melatonin - CV: Hypertension improving - esmolol gtt, wean as tolerated - metoprolol 50 tid - ASA - Pulm: requiring supplemental oxygen - high flow nasal cannula, wean as tolerated - FEN/GI: - Diabetic diet, - Protonix daily - HLIV - : voiding spontaneously - CARMEN resolving - Repeat lasix again today. - IS: Cellcept, Solumedrol - Prograf /, follow level - ID: entecavir, nystatin soln, Bactrim, Valcyte -Per ID, donor tested positive for Toxo IgM; toxo PCR sent, please keep on bactrim QD - Endo: BG 110-370s - Increase to NPH 60/55 with sliding scale - Heme: No indication for trasfusion - PT/OT recs: inpatient rehab - PPx: [facility], SCDs - Dispo: Floor Fox Han MD Transplant Surgery TXP1 Pager Cosigned by Tami Richardson MD at 10/16/2017 3:26 PM EST Associated attestation - Tami Richardson MD - 10/16/2017 3:26 PM EST I was present with the resident during the history and exam. I discussed the case with the residentand agree with the findings and plan as documented in the resident???s note. S/p OLT No acute events. Hyperglycemic Plan: Increase insulin sliding scale. Physical therapy * Annie Aden, PT - 10/16/2017 11:49 AM EST Inpatient Physical Therapy Treatment Note Name: Leoncio Rollins :1975 Attending Physician: David Mendenhall MD Admitting Diagnosis: S/P liver transplant (HCC) [Z94.4] Date: 10/16/2017 Room: [address] [place] [address] Hospital Course PT/OT: Pt is 42 y.o. 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 Intubated 09/18, extubated 10/09. Continued AMS, (-) MRI/Head CT. PMH: acute pancreatitis, ascites, DM, GERD, hepatic encephalopathy, HTN, SAL, vitamin D deficiency. Precautions: No limitations Activity level: activity as tolerated Assessment: Leoncio increased distance ambulated this date to 50' and 175' with min assist using a rolling walker. He required min assist for bed mobility and for transfers. Cont POC. Recommendations: Recommendation: IP Rehab AM-PAC 6 Clicks Basic Mobility Inpatient Short Form: PT 6 Clicks Score: 18 Equipment Recommended: Defer at this time Mobility Recommendations for Staff: Patient ambulates in hallway with 1 person assist requires use of rolling walker during activity Present Cognitive Status: Patient is oriented (WFL). Patient is alert, appropriate, cooperative, confused and lacking safety awareness. Patient is able to follow all commands. Patient Comments: I need to get home Pain: Patient denies pain Treatment: Functional Mobility: Bed mobility = Patient transitions from supine to sit with minimal assistance with increased time and increased HOB Sit to stand = Patient transfers from sit to stand with minimal assistance with max verbal cues to correct hand placement Stand to sit = Patient transfers from stand to sit with minimal assistance Gait = Patient ambulates 50' and 175 ft. with contact guard assistance using rolling walker . Gait deviations include slow anand, decreased B step length. Pt required 1 seated rest break. His SpO2 decreased to mid 80's with amb. He was on 1L O2 at all time. He required verbal cues for breathing and increased to low 90's quickly. Balance: Static sitting = performs with supervision Dynamic sitting = performs with supervision Static standing = performs with contact guard assistance using rolling walker Dynamic standing = performs with contact guard assistance using rolling walker Exercises: Pt educated on LAQ while sitting in bedside chair to assist with edema control Positioning: Patient left in chair at end of session, nurse notified, visitor(s) present and call light/ needs left within reach. Chair alarm not needed-patient is a low fall risk (or a medium fall risk with other precautions in place). Goals: Patient met gait and sit to stand goal(s) this date. Updated/active goals below: To be met by: 10/19/2017 ?? Bed mobility = Patient will transition from supine to sit with CGA Sit to stand = Patient will transfer from sit to stand with CGA Gait = Patient amb 200' with CGA using RW ?? Long-term goal??(to be met by 10/27/2017): Patient will transition from supine to sit with supervision Above goals discussed with patient and family -- Yes. Patient/Family Education: Educated patient and patient's family on the role of physical therapy, goals, plan of care, importance of increased activity and discharge recommendations and fall prevention strategies, including need for supervision/ assistance with OOB activity and use of call light; patient needed cues and willneed reinforcement. Plan: Continue plan of care, at least 3 time(s) per week. The plan of care and recommendations assesses the patient's and/or caregiver's readiness, willingness, and ability to provide or support functional mobility and ADL tasks as needed upon discharge. Signed: Annie Aden PT [facility] [phone] Office [phone] pager Hours 6:00-3:30 M-W Patient class: Inpatient Start Time: 0959 Stop Time: 1027 Time Calculation (min): 28 min Units Rendered: $Gait/Mobility: 8-22 mins $Therapeutic Activity: 1 unit PMH: Past Medical History: Diagnosis Date ??? Acute pancreatitis ??? Ascites ??? Diabetes mellitus (HCC) ??? Esophageal varices with bleeding (HCC) ??? GERD (gastroesophageal reflux disease) ??? Hepatic encephalopathy (HCC) ??? Hypertension ??? 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 Vitamin D deficiency PSH: Past Surgical History: Procedure Laterality Date ??? LIVER TRANSPLANTATION N/A 10/08/2017 Procedure: TRANSPLANT LIVER; Surgeon: David Mendenhall MD; Location: [facility]; Service: Transplant; Laterality: N/A; ??? TIPS PROCEDURE 10/2016 ??? TIPS Revision 04/2017 * Abbiemayank aPz, OTR - 10/16/2017 11:37 AM EST Occupational Therapy Progress Note Name: Leoncio Rollins :1975 Attending Physician: David Mendenhall MD Admitting Diagnosis: S/P liver transplant (HCC) [Z94.4] Date: 10/16/2017 Room: [address] [place] [address] Hospital Course PT/OT: Pt is 42 y.o. 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 Intubated 09/18, extubated 10/09. Continued AMS, (-) MRI/Head CT. PMH: acute pancreatitis, ascites, DM, GERD, hepatic encephalopathy, HTN, SAL, vitamin D deficiency. Precautions: No limitations Activity Level: activity as tolerated Recommendations Recommendation Recommendation: IP Rehab Equipment Recommended: Defer at this time AM-PAC 6 Clicks Daily Activity Inpatient Short Form: OT 6 Clicks Score: 13 Cognitive Status Patient is oriented to to person and to place. Patient is alert, cooperative, distracted, impulsive and confused. Patient is able to follow one-step commands. Poor carry over with education Cues to stay on tasks Poor safety awareness with functional mobility Cue to take rest breaks. ADLs and Functional Mobility Bed Mobility: Minimal assistance and increased time Sit to stand: Minimal assistance Chair Transfer: Minimal assistance and RW to complete household distances. x1 seated rest break to complete, cues for safety. Grooming: Moderate assistance to stand and use urinal LE ADLs: Moderate assistance donning pants, doffing socks and donning house shoes with increased time and cues for breathing technique. Pt on 1L O2 throughout session, pt reporting multiple times I don't need it Sitting EOB after donning house shoes, O2 80%, pt cued for PLB, up to 93% After ambultion O2 85%, pt cued to complete PLB, O2 back up to 90% After standing to urinate, O2 dropped to 82%, cues for PLB back up to 91%, HR 109. Balance Static Sitting: Independent Dynamic Sitting: Independent Static Standing: Contact guard assistance and RW Dynamic Standing: Contact guard assistance, Minimal assistance and RW Exercises Pt perseverating conversation on swelling in arms. Once sitting up in chair, pt educated on complete ROM there ex with BUEs- pt VU with cues and able to complete elbow flex/ext and shoulder flex/ext Pain Patient reports having a headache and discomfort with swelling in UEs. Pain interventions: repositioned and activity increased as tolerated Positioning Patient left in chair at end of session, nurse notified, visitor(s) present and call light/ needs left within reach. Chair alarm not needed-patient is a low fall risk (or a medium fall risk with other precautions in place) and unchanged from previous setting. Assessment Co-tx 2/2 safety awareness and pt activity tolerance. Pt limited by edema, decreased balance, activity tolerance, cognition. Will con't to work towards established goals. Goals To be met in: 1 week Patient will complete supine to sit with contact guard assistance (previous goal met 3/) Patient will complete sit to stand with contact guard assistance (goal met/upgraded 10/12) Patient will complete chair transfer :with supervision with or without A/D. Patient will complete LE ADLs with minimal assistance. (previous goal met 3/5) ?? Long-term goal: Patient will tolerate toilet transfers assessment??(to be met in 2 weeks) ?? Patient stated goals: to go home? Rehabilitation Potential (for above goals): good Patients and/or caregivers as well as practitioners mutually agreed upon the above goals. Plan Pt to be seen a minimum of 3 time(s) per week. Patient/Family Education Educated patient on the role of occupational therapy, OT goals, OT plan of care, discharge recommendation, ADL training, functional mobility training, home exercise program and the importance of safety and fall prevention strategies including need for supervision/ assistance with OOB activity and use of call light. patient verbalized understanding and demonstrated understanding. The plan of care assesses the patient's and/or caregiver's readiness, willingness, and ability to provide or support functional mobility and ADL tasks as needed upon discharge. Abbie Paz OTR/L Occupational Therapy (p) [phone] Patient Class: Inpatient Time Start Time: 1000 Stop Time: 1029 Time Calculation (min): 29 min Charges $Therapeutic Activity: 23-37 mins PMH: Past Medical History: Diagnosis Date ??? Acute pancreatitis ??? Ascites ??? Diabetes mellitus (HCC) ??? Esophageal varices with bleeding (HCC) ??? GERD (gastroesophageal reflux disease) ??? Hepatic encephalopathy (HCC) ??? Hypertension ??? 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 Vitamin D deficiency PSH: Past Surgical History: Procedure Laterality Date ??? LIVER TRANSPLANTATION N/A 10/08/2017 Procedure: TRANSPLANT LIVER; Surgeon: David Mendenhall MD; Location: OR; Service: Transplant; Laterality: N/A; ??? TIPS PROCEDURE 10/2016 ??? TIPS Revision 04/2017 * Madelyn Kwok RD - 10/16/2017 10:12 AM EST TXP-follow up [facility] Medical Nutrition Therapy Follow-Up Diet Order/Nutrition Support: Consistent carbohydrate [id number], Boost pudding TID, Boost glucose TID Pertinent Information: Mr. Rollins is a 42 y.o. male with PMHx SAL cirrhosis s/p OLT on 10/08/17 Pt is doing well and was transferred to the floor over the weekened. Feeding tube was removed and pt continues to have improving PO intake. Pt was laying in bed with at bedside at time of visit.Pt and report very good appetite and PO intake and state that pt has been consuming 100% of 3 meals and drinking Boost supplements. Pt denied any N/V or abd pain and reports + BM. Encouraged continued good PO intake with protein at every meal and Boost supplements as needed. Provided post txp nutrition education regarding food safety and post txp nutrition guidelines to pt and , verbalized understanding. Admit Weight: 256lbs Current Weight: 299lbs Scheduled Meds: ??? aspirin 81 mg Oral Daily with breakfast ??? carvedilol 25 mg Oral BID ??? cloNIDine HCl 0.1 mg Oral BID ??? entecavir 1 mg Oral DAILY 0600 ??? gabapentin 600 mg Oral TID ??? heparin (porcine) 5,000 Units Subcutaneous 3 times per day ??? insulin lispro 0-10 Units Subcutaneous Nightly (2100) ??? insulin lispro 0-12 Units Subcutaneous TID AC ??? insulin NPH 60 Units Subcutaneous QAM And ??? insulin NPH 55 Units Subcutaneous Nightly (2099) ??? melatonin 3 mg Oral Nightly (2099) ??? mycophenolate 500 mg Oral BID ? ? nystatin 500,000 Units Swish & Swallow TID ??? pantoprazole 40 mg Oral DAILY 0600 ??? predniSONE 20 mg Oral Daily 0900 ??? sulfamethoxazole-trimethoprim 1 tablet Oral Daily 0900 ??? tacrolimus 4 mg Oral BID7 ??? valGANciclovir 900 mg Oral Daily 0900 Continuous Infusions: PRN Meds:All IV Medications in Normal Saline 0.9%, dextrose 50 % in water (D50W), glucose, hydrALAZINE, labetalol, oxyCODONE OR oxyCODONE, traMADol OR traMADol Pertinent Labs: Lab Results Component Value Date CREATININE 1.46 (H) 10/16/2017 BUN 53 (H) 10/16/2017 NA 141 10/16/2017 K 3.6 10/16/2017 CL 107 10/16/2017 CO2 30 10/16/2017 Lab Results Component Value Date CALCIUM 8.4 (L) 10/16/2017 PHOS 3.1 10/16/2017 Lab Results Component Value Date MG 2.2 10/16/2017 Lab Results Component Value Date ALKPHOS 70 10/16/2017 ALT 95 (H) 10/16/2017 AST 24 10/16/2017 BILITOT 0.9 10/16/2017 ALBUMIN 2.6 (L) 10/16/2017 ALBUMIN 2.6 (L) 10/16/2017 BILIDIRECT 0.28 10/16/2017 PROT 4.6 (L) 10/16/2017 No results found for: PREALBUMIN Lab Results Component Value Date GLUCOSE 116 (H) 10/16/2017 Component Value Date/Time POCGMD 136 (H) 10/16/2017 0758 POCGMD 112 (H) 10/16/2017 0618 POCGMD 296 (H) 10/16/2017 0014 POCGMD 443 (H) 10/15/20172037 POCGMD 455 (H) 10/15/2017 203 POCGLU 225 (H) 10/08/2017 1232 POCGLU 218 (H) 10/08/2017 1138 POCGLU 167 (H) 10/08/2017 1109 POCGLU 178 (H) 10/08/2017 1004 POCGLU 176 (H) 10/08/2017 0903 Lab Results Component Value Date HGBA1C 5.4 10/09/2017 Lab Results Component Value Date WBC 7.2 10/16/2017 98.3 ??F (36.8 ??C) (Oral) Ht Readings from Last 1 Encounters: 10/10/17 5' 7 (1.702 m) Wt Readings from Last 3 Encounters: 10/15/17 (!) 299 lb 6.2 oz (135.8 kg) 10/02/17 (!) 251 lb (113.9 kg) 08/31/17 (!) 255 lb (115.7 kg) Body mass index is 46.89 kg/m??. Skin: Abd incision ?? Estimated Nutrition Needs: Needs based On: IBW 69.5kg Kcals/day: (30kcal/kg) 2085kcals Protein g/day: (1.5-2.0g/kg)104-139g Carbohydrate g/day: (45% of kcals) 235g Fluid ml/day: 1ml/kcal or as per MD ?? Nutrition Diagnosis:??Increased kcal/protein needs ?? Related To: Increased demand for nutrients As Evidenced By: Recent liver transplant, medically complex ?? Nutrition Diagnosis:??Food- and nutrition-related knowledge deficit Related to:?? Exposure to new information As evidenced by: Recent liver transplant and subsequent need for medical nutrition??therapy education ?? Established Nutrition Intervention:??Change Current Diet Order, Add/Change Medical Food Supplement/Snack, Monitor PO Intake/Tolerance and Education/Counseling: post txp nutrition Established Goals:??Total energy intake improved as evidenced by PO intake at least 50-75% of meals/supplements/snacks within -1-3??days and Voices/demonstrates knowledge of post txp??education/counseling Goals:??ongoing ?? Nutrition Status Classification: Severely Compromised Coordination of Nutrition Care: Currently there are no further barriers to discharge from a nutrition perspective and will further assess patient on an as needed basis as identified by the transplantmultidisciplinary team This information has been communicated to the transplant multidisciplinary team Follow up: per policy while inpatient. If patient is discharged dietitian will be available for consultation on an as needed basis as identified by the multidisciplinary team. Additional Recommendation(s) to Physicians: 1. Continue current diet + supplements 2. Continue to monitor and encourage PO intake Madelyn Kwok RD, LD Pager#[phone] * Margoth Taylor - 10/16/2017 6:32 AM EST 10/15/17 0632 24 HR Nutrition Analysis Totals 24 HR Total Calories (kcals) 0 kcals 24 Hr Total Protein (g) 0 g from [id number] No meal tickets saved for 10/14/17 calorie count NELLY Hoover Pager # [phone] * Margoth Taylor - 10/16/2017 6:31 AM EST 10/16/17 0600 24 HR Nutrition Analysis Totals 24 HR Total Calories (kcals) 0 kcals 24 Hr Total Protein (g) 0 g transferred from [id number] No meal tickets saved for 10/15/17 calorie count Hung calorie count folder NELLY Hoover Pager # [phone] * Chrissie Diaz RN - 10/15/2017 10:37 PM EST CMU remote monitoring orders have been reconciled. CHRISSIE DIAZ RN * Darya Hernandez RN - 10/15/2017 12:46 PM EST MD order to admit patient to [facility]. Patient arrived A/O x4. Pt. Was place on [facility]. Parameters were called and reported to [facility]. Obtained pt. Vitals. Completed admission hx w/patient. Placed appropriate bands on patient. Orientated patient to room, staff, unit, call light, and white board. Patient denies any questions at this time. Will continue to monitor. * Earlene Soria MD - 10/15/2017 6:29 AM EST Transplant Surgery Progress Note Patient: Leoncio Rollins Admit Date: 10/07/2017 OR Date: 10/08/2017 Subjective: SHARON overnight. HDS. Received extended dwell with PICC team yesterday Objective: Vitals: Temp: [97.8 ??F (36.6 ??C)-98.7 ??F (37.1 ??C)] 98.1 ??F (36.7 ??C) Heart Rate: [75-114] 79 Resp: [8-24] 10 BP: (137-162)/(70-82) 146/74 Date 10/14/17 0700 - 10/15/17 0659 10/15/17 0700 - 10/16/17 0659 Shift 6292-5957 1111-7294 9476-8450 24 Hour Total 5378-1773 1042-0381 2595-7649 24 Hour Total I N T A K E P.O. 2191 171 436 7546 P.O. 1480 402 080 0591 Boost Glucose Control (mL) 474 237 711 Boost (mL) - [facility] only 237 237 Shift Total (mL/kg) 2191 (16.3) 557 (4.2) 240 (1.8) 2988 (22.3) O U T P U T Urine (mL/kg/hr) 1100 (1) 600 (0.6) 900 2600 Urine 1100 322 210 1511 Urine Occurrence 1 x 3 x 4 x Stool Stool Occurrence 2 x 1 x 3 x Shift Total (mL/kg) 1100 (8.2) 600 (4.5) 900 (6.7) 2600 (19.4) Weight (kg) 134.2 134.2 134.2 134.2 134.2 134.2 134.2 134.2 Physical Exam: Gen: NAD Neuro: improved mental status, answers questions CV: RRR Resp: nonlabored, CTAB Abd: soft, approp TTP, incision with raheel c/d/i, mine x 1 serosang Ext: WWPx4, SCDs Skin: warm and dry Labs: Recent Labs 10/13/17 0526 10/14/17 0600 10/15/17 0357 WBC 6.2 5.4 5.7 HGB 7.4* 6.9* 7.3* HCT 20.8* 19.6* 20.6* PLT 38* 54* 79* Recent Labs 10/13/17 0526 10/14/17 0649 10/15/17 0357 NA 139 136 136 K 4.0 4.1 3.9 CL 106 104 106 CO2 28 30 30 BUN 61* 59* 57* CREATININE 1.58* 1.46* 1.45* GLUCOSE 285* 212* 171* CALCIUM 7.6* 7.7* 8.0* MG 2.2 2.3 2.3 PHOS 2.6 3.0 2.9 Recent Labs 10/14/17 0628 10/14/17 0804 10/14/17 1213 10/14/17 1706 10/14/17 2005 10/15/17 0554 POCGMD 219* 181* 170* 370* 354* 112* Recent Labs 10/13/17 0526 10/14/17 0649 10/15/17 0357 AST 16 28 27 ALT 122* 111* 112* BILITOT 0.7 0.8 0.7 BILIDIRECT 0.29 0.21 0.27 ALKPHOS 51 54 64 ALBUMIN 2.2* 2.2* 2.2* 2.2* 2.3* 2.3* No results for input(s): INR, PROTIME in the last 72 hours. Current Medications: Scheduled Meds: ??? aspirin 81 mg Oral Daily with breakfast ??? carvedilol 25 mg Oral BID ??? cloNIDine HCl 0.1 mg Oral BID ??? entecavir 1 mg Oral DAILY 0600 ??? gabapentin 600 mg Oral TID ??? heparin (porcine) 5,000 Units Subcutaneous 3 times per day ??? insulin lispro 0-12 Units Subcutaneous TID AC ??? insulin NPH 50 Units Subcutaneous BID ??? melatonin 3 mg Oral Nightly (2100) ??? mycophenolate 500 mg Oral BID ? ? nystatin 500,000 Units Swish & Swallow TID ??? pantoprazole 40 mg Oral DAILY 0600 ??? predniSONE 25 mg Oral Once Followed by ??? [START ON 10/16/2017] predniSONE 20 mg Oral Daily 0900 ??? sulfamethoxazole-trimethoprim 1 tablet Oral Daily 0900 ??? tacrolimus 4 mg Oral BID7 ??? valGANciclovir 900 mg Oral Daily 0900 Continuous Infusions: PRN Meds: All IV Medications in Normal Saline 0.9%, dextrose 50 % in water (D50W), glucose, hydrALAZINE, labetalol, oxyCODONE OR oxyCODONE, traMADol OR traMADol Assessment/Plan: Leoncio Rollins is a 42 y.o. 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 Ambulate, OOB 3x a day. Encourage nutrition, monitor PO intake. Continue to stress education and teaching of daily activities, medications and post-surgical issues. I have seen and examined the patient and agree with the plan. All points of care were reviewed in amultidisciplinary fashion with the housestaff and teams involved. * Judi Johnson - 10/14/2017 5:45 PM EST 10/14/17 1700 24 HR Nutrition Analysis Totals 24 HR Total Calories (kcals) 2390 kcals (114% Kcal needs met) 24 Hr Total Protein (g) 118.5 g (100% Pro needs met) Estimated Nutrition Needs: Needs based On: IBW 69.5kg Kcals/day: (30kcal/kg) 2085kcals Protein g/day: (1.5-2.0g/kg)104-139g Carbohydrate g/day: (45% of kcals) 235g Fluid ml/day: 1ml/kcal or as per MD ?? 4 meals and 3 Boost DM and 1 Boost pudding consumed from 10/13/17. Judi Johnson, DT [id number] * Jaquelin Saucedo RN - 10/14/2017 5:32 PM EST Skin tight due to edema * Jaquelin Saucdeo RN - 10/14/2017 2:49 PM EST Dressing applied to keep gown clean * Jaquelin Saucedo RN - 10/14/2017 2:17 PM EST Pt's sats drop when asleep - placed on 2L nasal cannula while napping to accommodate this. Transitioned easily to RA when awake * Murtaza Orourke MD - 10/14/2017 11:53 AM EST Patient reviewed. Liver transplant 6 days post transplant. Post op course complicated by 36 hrs post operative fevers, now resolved and AMS also resolved. 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 Recipient Toxo IgG negative in pretransplant workup. Recommend obtaining Toxoplasma PCR on whole blood to exclude active disease in recipient and would recommend maintain TMP/SMX prophylaxis as daily therapy rather than 3 times weekly. * Jaquelin Saucedo RN - 10/14/2017 10:29 AM EST Hx of back pain - plan to get OOB to chair * Yasmani Morrell MD - 10/14/2017 6:13 AM EST Transplant Surgery Progress Note Patient: Leoncio Rollins Admit Date: 10/07/2017 OR Date: 10/08/2017 Subjective: SHARON overnight. HDS. BM x 2 yesterday. Objective: Vitals: Temp: [97.8 ??F (36.6 ??C)-98.2 ??F (36.8 ??C)] 97.9 ??F (36.6 ??C) Heart Rate: [76-102] 83 Resp: [8-23] 8 BP: (97-147)/(54-79) 147/79 Date 10/13/17 0700 - 10/14/17 0659 10/14/17 07 - 10/15/17 0659 Shift 7358-8360 7515-5323 8653-7449 24 Hour Total 4902-3789 0957-9502 0667-0690 24 Hour Total I N T A K E P.O. 355 1174 548 6777 P.O. 355 6231 257 0310 Boost (mL) - [facility] only 240 240 NG/GT 393 393 Flushes (mL) ([REMOVED] Feeding Tube Nasogastric Nares) 100 100 Intake (mL) ([REMOVED] Feeding Tube Nasogastric Nares) 293 293 Shift Total (mL/kg) 748 (5.7) 1320 (10.1) 240 (1.8) 2308 (17.2) O U T P U T Urine (mL/kg/hr) 175 (0.2) 550 (0.5) 225 (0.2) 950 (0.3) Urine 175 550 225 950 Urine Occurrence 1 x 1 x Drains 100 100 Output (mL) ([REMOVED] Drain 2 Liver Abdomen Right) 100 100 Stool Stool Occurrence 1 x 1 x 2 x Shift Total (mL/kg) 275 (2.1) 550 (4.2) 225 (1.7) 1050 (7.8) Weight (kg) 131.3 131.3 134.2 134.2 134.2 134.2 134.2 134.2 Physical Exam: Gen: NAD Neuro: improved mental status, answers questions CV: RRR Resp: nonlabored, CTAB Abd: soft, approp TTP, incision with raheel c/d/i, mine x 1 serosang Ext: WWPx4, SCDs Skin: warm and dry Labs: Recent Labs 10/12/17 0110 10/13/17 0526 10/14/17 0600 WBC 9.3 6.2 5.4 HGB 8.1* 7.4* 6.9* HCT 22.7* 20.8* 19.6* PLT 40* 38* 54* Recent Labs 10/12/17 0110 10/13/17 0526 10/14/17 0649 NA 143 139 136 K 3.8 4.0 4.1 CL 113* 106 104 CO2 25 28 30 BUN 54* 61* 59* CREATININE 1.59* 1.58* 1.46* GLUCOSE 159* 285* 212* CALCIUM 7.5* 7.6* 7.7* MG 2.1 2.2 2.3 PHOS 3.1 2.6 3.0 Recent Labs 10/13/17 0805 10/13/17 1458 10/13/17 1840 10/13/17 2029 10/14/17 0628 10/14/17 0804 POCGMD 263* 186* 233* 293* 219* 181* Recent Labs 10/12/17 0110 10/13/17 0526 10/14/17 0649 AST 22 16 28 ALT 181* 122* 111* BILITOT 0.8 0.7 0.8 BILIDIRECT 0.31 0.29 0.21 ALKPHOS 48 51 54 ALBUMIN 2.1* 2.1* 2.2* 2.2* 2.2* 2.2* No results for input(s): INR, PROTIME in the last 72 hours. Current Medications: Scheduled Meds: ??? aspirin 81 mg Oral Daily with breakfast ??? carvedilol 25 mg Oral BID ??? cloNIDine HCl 0.1 mg Oral BID ??? entecavir 1 mg Oral DAILY 0600 ??? gabapentin 600 mg Oral TID ??? heparin (porcine) 5,000 Units Subcutaneous 3 times per day ??? insulin lispro 0-12 Units Subcutaneous TID AC ??? insulin NPH 50 Units Subcutaneous BID ??? melatonin 3 mg Oral Nightly (2100) ??? mycophenolate 500 mg Oral BID ? ? nystatin 500,000 Units Swish & Swallow TID ??? pantoprazole 40 mg Oral DAILY 0600 ??? Pharmacy to Discontinue all previous insulin and antidiabetic medications MISCELLANEOUS Once ??? predniSONE 30 mg Oral Once Followed by ??? [START ON 10/15/2017] predniSONE 25 mg Oral Once Followed by ??? [START ON 10/16/2017] predniSONE 20 mg Oral Daily 0900 ??? sulfamethoxazole-trimethoprim 1 tablet Oral Daily 0900 ??? tacrolimus 3 mg Oral BID7 ??? valGANciclovir 900 mg Oral Daily 0900 Continuous Infusions: PRN Meds: All IV Medications in Normal Saline 0.9%, dextrose 50 % in water (D50W), glucose, hydrALAZINE, labetalol, oxyCODONE OR oxyCODONE, traMADol OR traMADol Assessment/Plan: Leoncio Rollins is a 42 y.o. 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 Plan: - Neuro: - Oxycodone, tramadol, Neurontin - melatonin - CV: Hypertension improving - esmolol gtt, wean as tolerated - metoprolol 50 tid - ASA - Pulm: requiring supplemental oxygen - high flow nasal cannula - FEN/GI: - Diabetic diet, - Protonix daily - HLIV - : voiding spontaneously - CARMEN resolving, Cr 1.46 (1.69) - IS: Cellcept, Solumedro - Prograf 10/14, follow level - ID: entecavir, nystatin soln, Bactrim, Valcyte - Endo: BG 180-200s - NPH 50 BID with sliding scale - Heme: Hgb stable 9.3 (8.8) - PT/OT recs: inpatient rehab - PPx: SQH, SCDs - Dispo: ALEXEI MORRELL MD Transplant Surgery [id number] Pager Cosigned by David Mendenhall MD at 10/14/2017 8:16 AM EST Associated attestation - David Mendenhall MD - 10/14/2017 8:16 AM EST Immunosuppression reviewed. Ambulate, OOB 3x a day. Encourage nutrition, monitor PO intake. Continue to stress education and teaching of daily activities, medications and post-surgical issues. I have seen and examined the patient and agree with the plan. All points of care were reviewed in amultidisciplinary fashion with the housestaff and teams involved. * Judi Johnson - 10/13/2017 3:19 PM EST 10/13/17 1500 24 HR Nutrition Analysis Totals 24 HR Total Calories (kcals) 273 kcals (13% Kcal needs met) 24 Hr Total Protein (g) 10.5 g (10% Pro needs met) Estimated Nutrition Needs: Needs based On: IBW 69.5kg Kcals/day: (30kcal/kg) 2085kcals Protein g/day: (1.5-2.0g/kg)104-139g Carbohydrate g/day: (45% of kcals) 235g Fluid ml/day: 1ml/kcal or as per 2 meals recorded from 10/12/17. Judi Johnson, DT [id number] * Fox Han MD - 10/13/2017 10:12 AM EST Transplant Surgery Progress Note Patient: Leoncio Rollins Admit Date: 10/07/2017 OR Date: 10/08/2017 Subjective: SHARON overnight. HDS. Off esmolol gtt and off insulin gtt. Objective: Vitals: Temp: [98.1 ??F (36.7 ??C)-98.4 ??F (36.9 ??C)] 98.2 ??F (36.8 ??C) Heart Rate: [75-101] 88 Resp: [12-21] 21 BP: (92-168)/(47-94) 144/75 Arterial Line BP: (131-188)/(55-75) 170/65 Date 10/12/17 0700 - 10/13/17 0659 10/13/17 0700 - 10/14/17 0659 Shift 6032-8123 0428-0237 9030-4615 24 Hour Total 5280-0057 8029-3168 0003-9642 24 Hour Total I N T A K E P.O. 480 480 120 120 P.O. 480 480 120 120 I.V. (mL/kg) 188 (1.4) 93 (0.7) 281 (2.1) Volume (mL) Esmolol 188 93 281 NG/GT 562 860 999 3700 Intake (mL) (Feeding Tube Nasogastric Nares) 562 750 886 0968 Shift Total (mL/kg) 750 (5.8) 1084 (8.4) 535 (4.1) 2369 (18) 120 (0.9) 120 (0.9) O U T P U T Urine (mL/kg/hr) 120 (0.1) 1800 (1.7) 250 (0.2) 2170 (0.7) Urine 120 2832 378 8520 Drains 315 100 415 Output (mL) (Drain 2 Liver Abdomen Right) 315 100 415 Stool Stool Occurrence 1 x 1 x Shift Total (mL/kg) 120 (0.9) 2115 (16.3) 350 (2.7) 2585 (19.7) Weight (kg) 129.8 129.8 131.3 131.3 131.3 131.3 131.3 131.3 Physical Exam: Gen: NAD Neuro: improved mental status, answers questions CV: RRR Resp: nonlabored, CTAB Abd: soft, approp TTP, incision with raheel c/d/i, mine x 1 serosang Ext: WWPx4, SCDs Skin: warm and dry Labs: Recent Labs 02/28/18 1408 10/12/17 0110 10/13/17 0526 WBC 10.5 9.3 6.2 HGB 9.3* 8.1* 7.4* HCT 25.9* 22.7* 20.8* PLT 41* 40* 38* Recent Labs 10/11/17 0423 10/12/17 0110 10/13/17 0526 NA 142 143 139 K 4.1 3.8 4.0 CL 112* 113* 106 CO2 23 25 28 BUN 50* 54* 61* CREATININE 1.69* 1.59* 1.58* GLUCOSE 148* 159* 285* CALCIUM 8.0* 7.5* 7.6* MG 2.3 2.1 2.2 PHOS 4.2 3.1 2.6 Recent Labs 10/12/17 1638 10/12/17 1715 10/12/17 1956 10/13/17 0029 10/13/17 0619 10/13/17 0805 POCGMD 398* 411* 362* 359* 273* 263* Recent Labs 10/11/17 0423 10/12/17 0110 10/13/17 0526 AST 71* 22 16 ALT 297* 181* 122* BILITOT 1.0 0.8 0.7 BILIDIRECT 0.41* 0.31 0.29 ALKPHOS 46 48 51 ALBUMIN 2.4* 2.4* 2.1* 2.1* 2.2* 2.2* Recent Labs 10/10/17 1253 INR 1.3* PROTIME 16.1* Current Medications: Scheduled Meds: ??? aspirin 81 mg Oral Daily with breakfast ??? carvedilol 25 mg Oral BID ??? cloNIDine HCl 0.1 mg Oral BID ??? [START ON 10/14/2017] entecavir 1 mg Oral DAILY 0600 ??? gabapentin 600 mg Oral TID ??? heparin (porcine) 5,000 Units Subcutaneous 3 times per day ??? insulin lispro 0-12 Units Subcutaneous TID AC ??? insulin NPH 50 Units Subcutaneous BID ??? lidocaine-EPINEPHrine 10 mL Subcutaneous Once ??? melatonin 3 mg Oral Nightly (2100) ??? mycophenolate 500 mg Oral BID ? ? nystatin 500,000 Units Swish & Swallow TID ??? pantoprazole 40 mg Oral DAILY 0600 ??? Pharmacy to Discontinue all previous insulin and antidiabetic medications MISCELLANEOUS Once ??? [START ON 10/14/2017] predniSONE 30 mg Oral Once Followed by ??? [START ON 10/15/2017] predniSONE 25 mg Oral Once Followed by ??? [START ON 10/16/2017] predniSONE 20 mg Oral Daily 0900 ??? sulfamethoxazole-trimethoprim 1 tablet Oral Daily 0900 ??? tacrolimus 3 mg Oral BID7 ??? valGANciclovir 900 mg Oral Daily 0900 Continuous Infusions: ??? insulin (HumuLIN R) infusion 7 Units/hr (10/12/17 1037) PRN Meds: All IV Medications in Normal Saline 0.9%, dextrose 50 % in water (D50W), glucose, hydrALAZINE, insulin (HumuLIN R) infusion AND INSULIN INFUSION PROTOCOL (NOT FOR DKA OR HHS), labetalol, oxyCODONE OR oxyCODONE, traMADol OR traMADol Assessment/Plan: Leoncio Rollins is a 42 y.o. 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 Plan: - Neuro: - Oxycodone, tramadol, Neurontin - melatonin - CV: Hypertension - On coreg and clonidine - ASA - Pulm: requiring supplemental oxygen - high flow nasal cannula - FEN/GI: - Diabetic diet, Diabetisource AC tube feeds at goal - Potential removal of feeding tube as po intake increases over time - Protonix daily - : voiding spontaneously - CARMEN resolving - Received 40 Lasix yesterday - IS: Cellcept, Solumedrol, Prograf 10/14 - ID: entecavir, nystatin soln, Bactrim, Valcyte prophylaxis - Endo: NPH 50 Bid - Heme: No signs of bleeding. - PT/OT recs: inpatient rehab - PPx: SQH, SCDs - Dispo: ALEXEI Han MD Transplant Surgery TXP1 Pager Cosigned by David Mendenhall MD at 10/13/2017 1:03 PM EST Associated attestation - David Mendenhall MD - 10/13/2017 1:03 PM EST I have seen and examined the patient and agree with the plan. All points of care were reviewed in amultidisciplinary fashion with the housestaff and teams involved. Immunosuppression reviewed. Ambulate, OOB 3x a day. Encourage nutrition, monitor PO intake. Continue to stress education and teaching of daily activities, medications and post-surgical issues. * Madelyn Kwok RD - 10/13/2017 10:04 AM EST TXP-follow up [facility] Medical Nutrition Therapy Follow-Up Diet Order/Nutrition Support: Diabetisource AC @ 75ml/hr x 12 hours Pertinent Information: Mr. Rollins is a 42 y.o. 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 Pt was sitting up in bed this morning with at bedside. Pt states he was in a lot of pain and wants the feeding tube removed. As per pt has been trying to eat ~50% of meals but does not likethe Boost supplements. This morning pt ate minimal breakfast but drank 1 Boost supplement. Reinforced the importance of adequate calorie and protein intake and the need for optimal nutrition at this t timbo. Encouraged 3 meals/day +3 Nutrition supplements/day. Will add Boost pudding. Explained to pt and that we will start cycling tube feeds and if pt is able to increase PO intake and meet his nutritional needs over the weekend we can take out the feeding tube. Pt and verbalized understanding. Given pt's good nutritional status prior to txp, as long as he is able to demonstrate consistently improved PO intake would be ok to discontinue feeding tube. Glucose 285 noted. Admit Weight: 256lbs Current Weight: 289lbs Scheduled Meds: ??? aspirin 81 mg Oral Daily with breakfast ??? carvedilol 25 mg Oral BID ??? cloNIDine HCl 0.1 mg Oral BID ??? [START ON 10/14/2017] entecavir 1 mg Oral DAILY 0600 ??? gabapentin 600 mg Oral TID ??? heparin (porcine) 5,000 Units Subcutaneous 3 times per day ??? insulin lispro 0-12 Units Subcutaneous TID AC ??? insulin NPH 50 Units Subcutaneous BID ??? lidocaine-EPINEPHrine 10 mL Subcutaneous Once ??? melatonin 3 mg Oral Nightly (2100) ??? mycophenolate 500 mg Oral BID ? ? nystatin 500,000 Units Swish & Swallow TID ??? pantoprazole 40 mg Oral DAILY 0600 ??? Pharmacy to Discontinue all previous insulin and antidiabetic medications MISCELLANEOUS Once ??? [START ON 10/14/2017] predniSONE 30 mg Oral Once Followed by ??? [START ON 10/15/2017] predniSONE 25 mg Oral Once Followed by ??? [START ON 10/16/2017] predniSONE 20 mg Oral Daily 0900 ??? sulfamethoxazole-trimethoprim 1 tablet Oral Daily 0900 ??? tacrolimus 3 mg Oral BID7 ??? valGANciclovir 900 mg Oral Daily 0900 Continuous Infusions: ??? insulin (HumuLIN R) infusion 7 Units/hr (10/12/17 1037) PRN Meds:All IV Medications in Normal Saline 0.9%, dextrose 50 % in water (D50W), glucose, hydrALAZINE, insulin (HumuLIN R) infusion AND INSULIN INFUSION PROTOCOL (NOT FOR DKA OR HHS), labetalol,oxyCODONE OR oxyCODONE, traMADol OR traMADol Pertinent Labs: Lab Results Component Value Date CREATININE 1.58 (H) 10/13/2017 BUN 61 (H) 10/13/2017 NA 139 10/13/2017 K 4.0 10/13/2017 CL 106 10/13/2017 CO2 28 10/13/2017 Lab Results Component Value Date CALCIUM 7.6 (L) 10/13/2017 PHOS 2.6 10/13/2017 Lab Results Component Value Date MG 2.2 10/13/2017 Lab Results Component Value Date ALKPHOS 51 10/13/2017 ALT 122 (H) 10/13/2017 AST 16 10/13/2017 BILITOT 0.7 10/13/2017 ALBUMIN 2.2 (L) 10/13/2017 ALBUMIN 2.2 (L) 10/13/2017 BILIDIRECT 0.29 10/13/2017 PROT 4.0 (L) 10/13/2017 No results found for: PREALBUMIN Lab Results Component Value Date GLUCOSE 285 (H) 10/13/2017 Component Value Date/Time POCGMD 263 (H) 10/13/2017 0805 POCGMD 273 (H) 10/13/2017 0619 POCGMD 359 (H) 10/13/2017 0029 POCGMD 362 (H) 10/12/2017 1956 POCGMD 411 (H) 10/12/2017 1715 POCGLU 225 (H) 10/08/2017 1232 POCGLU 218 (H) 10/08/2017 1138 POCGLU 167 (H) 10/08/2017 1109 POCGLU 178 (H) 10/08/2017 1004 POCGLU 176 (H) 10/08/2017 0903 Lab Results Component Value Date HGBA1C 5.4 10/09/2017 Lab Results Component Value Date WBC 6.2 10/13/2017 98.2 ??F (36.8 ??C) (Oral) Ht Readings from Last 1 Encounters: 10/10/17 5' 7 (1.702 m) Wt Readings from Last 3 Encounters: 10/13/17 (!) 289 lb 7.4 oz (131.3 kg) 10/02/17 (!) 251 lb (113.9 kg) 08/31/17 (!) 255 lb (115.7 kg) Body mass index is 45.34 kg/m??. Skin: Abd incision ?? Estimated Nutrition Needs: Needs based On: IBW 69.5kg Kcals/day: (30kcal/kg) 2085kcals Protein g/day: (1.5-2.0g/kg)104-139g Carbohydrate g/day: (45% of kcals) 235g Fluid ml/day: 1ml/kcal or as per MD ?? Nutrition Diagnosis: Increased kcal/protein needs ?? Related To: Increased demand for nutrients As Evidenced By: Recent liver transplant, medically complex ?? Nutrition Diagnosis: Food- and nutrition-related knowledge deficit Related to:?? Exposure to new information As evidenced by: Recent liver transplant and subsequent need for medical nutrition therapy education ?? Established Nutrition Intervention: Change Current Diet Order, Add/Change Medical Food Supplement/Snack, Monitor PO Intake/Tolerance and Education/Counseling: post txp nutrition Established Goals: Total energy intake improved as evidenced by PO intake at least 50-75% of meals/supplements/snacks within -1-3??days and Voices/demonstrates knowledge of post txp??education/counseling Goals: ongoing ?? Nutrition Status Classification: Severely Compromised ?? This information has been communicated to the transplant multidisciplinary team ?? Follow up: per policy while inpatient. If patient is discharged dietitian will be available for consultation on an as needed basis as identified by the multidisciplinary team. ?? Additional Recommendation(s) to Physicians: 1. Consider cycle feeds of Diabetisource AC @ 85ml/hr x 12 hours to meet 60% of the patient's nutritional needs (1224kcals, 60g protein, 100g CHO, 816ml free water) 2. If pt is able to consistently demonstrate increasing PO intake and improving ability to meet hisnutritional needs would be ok to d/c feeding tube and trial pt without EN. 3. Continue current diet + supplements 4. Add Boost Pudding TID 5. Continue calorie counts to monitor PO intake. Please ensure all meals and snacks are accurately recorded. Madelyn Kwok RD, LD Pager#[phone] * Je Dominguez MD - 10/13/2017 4:36 AM EST Surgical ICU Progress 10/13/2017 5:58 AM Patient:Leoncio Rollins HPI: Leoncio Rollins is a 42 y.o. 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 He was previously following at , but decompensated in 09/2016 with massive variceal bleed and TIPS procedure. As a result, he was second listed at . His liver disease has been complicated by encephalopathy, it is being treated with xifaxan and lactulose. After Stites-viviana catheter was placed, Mr. Rollins was found to have pulmonary hypertension with BPs in the 40s. His transplant was otherwise uncomplicated, EBL 2800, and he received 5 units FFP, 2 units pRBC, 1 plt. Additionally he received 1250 of Cell Saver. 24h Events: -Hypertension -> restarted home clonidine and carvedilol, 1x hydralazine, weaned off esmolol, d/c'd metoprolol - goal BP <160 systolic Plan: - D/C tube feeds - Daily LFTs Scheduled Meds: ??? aspirin 81 mg Oral Daily with breakfast ??? carvedilol 25 mg Oral BID ??? cloNIDine HCl 0.1 mg Oral BID ??? entecavir 0.5 mg Oral DAILY 0600 ??? gabapentin 600 mg Oral TID ??? heparin (porcine) 5,000 Units Subcutaneous 3 times per day ??? insulin lispro 0-12 Units Subcutaneous TID AC ??? insulin NPH 50 Units Subcutaneous BID ??? melatonin 3 mg Oral Nightly (2100) ??? mycophenolate 500 mg Oral BID ? ? nystatin 500,000 Units Swish & Swallow TID ??? pantoprazole 40 mg Oral DAILY 0600 ??? Pharmacy to Discontinue all previous insulin and antidiabetic medications MISCELLANEOUS Once ??? predniSONE 40 mg Oral Once Followed by ??? [START ON 10/14/2017] predniSONE 30 mg Oral Once Followed by ??? [START ON 10/15/2017] predniSONE 25 mg Oral Once Followed by ??? [START ON 10/16/2017] predniSONE 20 mg Oral Daily 0900 ??? sulfamethoxazole-trimethoprim 1 tablet Oral Daily 0900 ??? tacrolimus 3 mg Oral BID7 ??? valGANciclovir 900 mg Oral Daily 0900 Continuous Infusions: ??? esmolol (BREVIBLOC) 20 mg/mL Stopped (10/12/17 2222) ??? insulin (HumuLIN R) infusion 7 Units/hr (10/12/17 1037) PRN Meds:.All IV Medications in Normal Saline 0.9%, dextrose 50 % in water (D50W), glucose, hydrALAZINE, insulin (HumuLIN R) infusion AND INSULIN INFUSION PROTOCOL (NOT FOR DKA OR HHS), labetalol, oxyCODONE OR oxyCODONE, traMADol OR traMADol Allergies Allergen Reactions ??? Codeine ??? Dilaudid [Hydromorphone] Other (See Comments) Hallucinations ??? Flexeril [Cyclobenzaprine] Social History Substance Use Topics ??? Smoking status: Never Smoker ??? Smokeless tobacco: Never Used ??? Alcohol use No Family History Problem Relation Age of Onset ??? Diabetes Sister REVIEW OF SYSTEMS: Pertinent items are noted in HPI. PHYSICAL EXAM: CONSTITUTIONAL: General: NAD Temp (24hrs), Av.3 ??F (36.8 ??C), Min:98.1 ??F (36.7 ??C), Max:98.4 ??F (36.9 ??C) BP 127/66 Pulse 84 Temp 98.4 ??F (36.9 ??C) (Oral) Resp 16 Ht 5' 7 (1.702 m) Wt (!) 286 lb 2.5 oz (129.8 kg) SpO2 97% BMI 44.82 kg/m?? HEENT: Exam: conjuctiva, lids normal, scleral icterus and pupils equal A/P:No acute issues RESPIRATORY: Exam: effort normal and clear to auscultation bilaterally Respiratory Support: Vent Setting: No data found. Lab 10/09/17 1533 PH ARTERIAL 7.41 PCO2 ARTERIAL 34* PO2 ARTERIAL 123* HCO3 ARTERIAL 21* BASE EXCESS ARTERIAL -2.9* Total RSBI: 6 (10/09/17 0829) A/P: Hypoxia: - on 2L NC - pulm toilet - Improved R lung consolidation - Stop trending CXRs CARDIOVASCULAR: Exam: auscultation normal, rhythm and rate normal and pulses equal bilaterally Troponin: Lab 10/10/17 0632 TROPONIN I 0.15* Hemodynamics: No data found. A/P: NSR on monitor Hypertension Goal SBP 160 121-164/66-94 ASA Home Meds: Losartan 50 mg daily - hold Clonidine 0.1 mg Coreg 25 mg BID Restart Coreg 25mg BID Restart Clonidine 0.1mg BID Esmolol gtt off Metoprolol off Troponin Elevation: -possibly related to hypertension -EKG unchanged -0.16 -> 0.15 -ECHO yesterday - EF 55-60% - No wall motion abnormalities - RV Dilation - RA Dilation - pHTN at least 42 - No valvular disfunction NUTRITION: TF:Diabetasource goal 75 --> D/C TPN rate:N/A A/P: Diabetic diet - DAIRY TESTER eval - regular diet with thin GASTROINTESTINAL: Exam: no masses or tenderness, soft, obese, no rebound and no guarding Hepatic Profile: Lab 10/12/17 0110 ALK PHOS 48 ALT 181* AST 22 BILIRUBIN TOTAL 0.8 ALBUMIN 2.1* 2.1* BILIRUBIN DIRECT 0.31 TOTAL PROTEIN 4.0* A/P: ESLD 2/2 SAL - Right Hepatic artery reconstruction - ASA - S/P OLT 10/08/2017 - LFTs and bilis downtrending - Continue to trend AST 22 (71) ALT 181 (297) Tbili 0.8 (1.0) D Bili 0.31 (0.41) - Donor serology - HBcAb+ - HBV ALEXANDRA + - HCVAb+ - HCV ALEXANDRA- - Valcyte - Bactrim - Mycostatin - holding prograf Hepatic Encephalopathy - Holding Lactulose, Rifaximin - Continue to trend mental status - Ammonia 68 GERD - Protonix History of esophageal varices with bleeding - - S/P TIPS Ascites - Mild - S/P OLT 10/08/2017 History of acute pancreatitis - No present symptoms - Will monitor FLUIDS/ELECTROLYTES: IVFluids: off Labs: Lab 10/12/17 0110 SODIUM 143 POTASSIUM 3.8 CHLORIDE 113* CO2 25 BUN 54* CREATININE 1.59* GLUCOSE 159* CALCIUM 7.5* MAGNESIUM 2.1 PHOSPHORUS 3.1 Date 10/12/17 07 - 10/13/17 0659 10/13/17 0700 - 10/14/17 0659 Shift 0085-9055 7424-9181 4375-2352 24 Hour Total 6310-8196 2276-6015 6950-1699 24 Hour Total I N T A K E P.O. 480 480 P.O. 480 480 I.V. (mL/kg) 188 (1.4) 93 (0.7) 281 (2.2) Volume (mL) Esmolol 188 93 281 NG/GT 562 595 181 3579 Intake (mL) (Feeding Tube Nasogastric Nares) 562 482 830 4803 Shift Total (mL/kg) 750 (5.8) 1084 (8.4) 535 (4.1) 2369 (18.3) O U T P U T Urine (mL/kg/hr) 120 (0.1) 1800 (1.7) 250 2170 Urine 120 3279 129 6440 Drains 315 100 415 Output (mL) (Drain 2 Liver Abdomen Right) 315 100 415 Stool Stool Occurrence 1 x 1 x Shift Total (mL/kg) 120 (0.9) 2115 (16.3) 350 (2.7) 2585 (19.9) Weight (kg) 129.8 129.8 129.8 129.8 129.8 129.8 129.8 129.8 I/O: 2.4/2.6 UOP: 1920 Drain 1: Removed Drain 2: 315(310) A/P: Will monitor electrolytes - Hypocalcemia, continue to trend RENAL: A/P: CARMEN on CKD - Cr 1.58 (1.59) - UOP doing well - Baseline Cr 1.39-1.4 - Baseline BUN 18-20 SKIN/MUSCULOSKELETAL: Exam: inspection normal, pitting edema and moves all extremities well A/P: Vitamin D deficiency Will supplement when taking PO HEMATOLOGIC: Labs: Lab 10/13/17 0526 WBC 6.2 HEMOGLOBIN 7.4* HEMATOCRIT 20.8* PLATELETS 38* Lab 10/10/17 1253 INR 1.3* Lab 10/08/17 1353 FIBRINOGEN LEVEL 192* Lab 10/10/17 0158 TEG ANGLE 73.0 TEG K TIME 135.0 TEG LYSIS 30 0.0 TEG MAX AMPLITUDE 51.5* TEG RTIME 35.0 A/P: Acute blood loss anemia: HGB 8.8 (Stable 8.8) Will transfuse for <7 Leukocytosis: - Resolved 9.0 (Peak 14.9) Thrombocytopenia: - 38 (Downtrending 92->63->46->38 -->40) - ANA MARIA score 4, Hold off on Sending HIT Panel - anticipate uptrend in the next couple days - Repeat afternoon CBC Coagulopathy - Resolved Likely 2/2 blood loss Elevated INR intraop (2.2) INR 1.3 now Will continue to trend TEG normalized ENDOCRINE: FSBS range: Lab 10/13/17 0029 10/12/17 1956 10/12/17 1715 10/12/17 1638 10/12/17 1202 10/12/17 1005 10/12/17 0902 10/12/17 0757 POC GLU MONITORING DEVICE 359* 362* 411* 398* 202* 164* 136* 139* Lab 10/08/17 1232 10/08/17 1138 10/08/17 1109 10/08/17 1004 10/08/17 0903 POCGLUART 225* 218* 167* 178* 176* Insulin regimen:N/A A/P: NPH 35 BID --> 50 BID yesterday afternoon and high dose SSI Hyperglycemia likely due to TF + regular diet - d/c tube feeds will help hyperglycemia Insulin dependent DMII INFECTIOUS DISEASE: Culture date: N/A Culture result: N/A Lab Results Component Value Date COLORU Yellow 10/10/2017 CLARITYU Clear 10/10/2017 PROTEINUA 100 (A) 10/10/2017 PHUR 5.0 10/10/2017 LABSPEC 1.028 10/10/2017 GLUCOSEU Negative 10/10/2017 BLOODU Small (A) 10/10/2017 LEUKOCYTESUR Negative 10/10/2017 NITRITE Negative 10/10/2017 BILIRUBINUR Negative 10/10/2017 UROBILINOGEN <2.0 10/10/2017 Lab Results Component Value Date ISO1 No Growth After 48 Hours 10/10/2017 ISO1 No Growth After 48 Hours 10/10/2017 No results found for: AEROBOT, ANABOT, LABGRAM, ISO2, ISO3, ISO4, ISO5, ISO6, PNAFISH Antibiotics (day):N/A A/P: Prophylaxis per primary CMV IGG - EBV IGG + Mumps IGG + Rubella - Rubeola - VZV IGG + Hep A IGG + Hep B Surface AB + Core - HCV - TB - Toxoplasma - HIV - Treponema - Organ ALEXANDRA HBV + NEUROLOGIC: Exam: Awake, follows commands, strength intact all 4 extremities Eye Openin, Best Verbal Response: 4,Best Motor Response: 6 Marcio Coma Scale Score: 14 No data found. EEG: N/A EVD: N/A TCDs:N/A ICP Management: N/A A/P: AMS: -unclear cause - likely mild hepatic encephalopathy, head CT negative -ammonia 91 -MRI - Motion artifact - Questionable hyperdense T2 in periventricular white matter, likely chronic PSYCHIATRIC: Exam: sedated Sifuentes Agitation Sedation Scale: +1 Overall CAM-ICU : Delirium Present A/P: Pain -prn fentanyl Insomnia: - Will add Melatonin PRN QHS Order GI ASST Patient Lines/Drains/Airways Status Active Epidural Line / PICC Line / PIV Line / ART Line / Line / CVC Line Name: Placement date: Placement time: Site: Days: Peripheral IV 10/08/17 Left 10/08/17 5 Peripheral IV 10/12/17 Right Antecubital 10/12/17 1517 Antecubital less than 1 Anders: No EVD: No A/P: Continue PIVs INJURY/DISEASE SPECIFIC NEEDS: DVT Prophylaxis: SCDs, SQH GI Prophylaxis: Protonix ??? aspirin 81 mg Oral Daily with breakfast ??? carvedilol 25 mg Oral BID ??? cloNIDine HCl 0.1 mg Oral BID ??? entecavir 0.5 mg Oral DAILY 0600 ??? gabapentin 600 mg Oral TID ??? heparin (porcine) 5,000 Units Subcutaneous 3 times per day ??? insulin lispro 0-12 Units Subcutaneous TID AC ??? insulin NPH 50 Units Subcutaneous BID ??? melatonin 3 mg Oral Nightly (2100) ??? mycophenolate 500 mg Oral BID ? ? nystatin 500,000 Units Swish & Swallow TID ??? pantoprazole 40 mg Oral DAILY 0600 ??? Pharmacy to Discontinue all previous insulin and antidiabetic medications MISCELLANEOUS Once ??? predniSONE 40 mg Oral Once Followed by ??? [START ON 10/14/2017] predniSONE 30 mg Oral Once Followed by ??? [START ON 10/15/2017] predniSONE 25 mg Oral Once Followed by ??? [START ON 10/16/2017] predniSONE 20 mg Oral Daily 0900 ??? sulfamethoxazole-trimethoprim 1 tablet Oral Daily 0900 ??? tacrolimus 3 mg Oral BID7 ??? valGANciclovir 900 mg Oral Daily 0900 ??? esmolol (BREVIBLOC) 20 mg/mL Stopped (10/12/17 2222) ??? insulin (HumuLIN R) infusion 7 Units/hr (10/12/17 1037) JE DOMINGUEZ 10/13/2017 5:58 AM Cosigned by Judi Carter MD at 10/13/2017 12:19 PM EST Associated attestation - Judi Carter MD - 10/13/2017 12:19 PM EST ICU ATTENDING PROGRESS NOTE Leoncio Rollins was seen by the resident team, nurses, pharmacist and respiratory therapists of the multidisciplinary critical care team on 10/13/2017. I have personally seen and examined this patient today (10/13/2017 ) and reviewed the events of the previous 24 hours with the multidisciplinary critical care team and the case has been discussed with the Transplant team. I note the following in my assessment and will implement this plan of coordinated critical care management as follows: 42 yo M with HTN, DM-II, hyperlipidemia, and ESLD from SAL (encephalopathy, varices, MELD 25) and emergent TIPS () who underwent OLT on 10-07-2017. Intraoperative mean PA pressures initially 40s, PAS 60s. Otherwise uneventful transplant I note the following events over the last 24 hours, with the assessment and implementation of coordinated critical care management as below: slowly improving mental status. HEENT: No acute issues. RESPIRATORY: Atelectasis/pulmonary collapse Hypoxia Respiratory failure, acute WITH trauma or surgery Extubated 10-09 successfully - Continue IS, pulm toileting. EZPAP. Weaned to 2LPM. Wean to RA as tolerated. CARDIOVASCULAR: Hypertension, essential benign pulm hypertension Hyperlipidemia - Tachycardia Home meds coreg 25BID and losartan 50 daily - holding losartan. Restarted home coreg and clonidine - off esmolol gtt. Hydralazine for SBP>160. NUTRITION: No acute issues - would stop TFs given excellent po intake - defer to txp. GASTROINTESTINAL: Cirrhosis, not secondary to alcohol s/p OLT - LFTs improving. continue ASA for reconstructed hepatic artery. Duplex with normal RIs. Continue entecavir GERD - on home ppi - continue given immunosuppressives. FLUIDS / ELECTROLYTES: HLIVF Hypomagnesemia - supplement per protocol RENAL: CKD - baseline cr 1.4 Peaked at 2.2. Improved to 1.6. UOP improved. SKIN/MUSCULOSKELETAL No acute issues. HEMATOLOGIC: Coagulopathy, unspecified - resolved. Thrombocytopenia - platelets stable at 38 - will monitor. Acute hemorrhagic anemia - hgb 7.4. Will monitor today - does not appear to be bleeding. ENDOCRINE: DM, type II, controlled - received 35/50 NPH. HbA1C 5.4 as outpatient. Increased to 50/50 this am. Added high dose SS-I. txp immunosuppression - steroids, cellcept, FK INFECTIOUS DISEASE: hepatitis B - entecavir txp prophylaxis - nystatin, valcyte. NEUROLOGIC: Altered Mental Status - after extubation with new aphasia and difficulty FCs. CT/MRI negative. Neurology consulted. slowly improving. C/w encephalopathy. PSYCHIATRIC, PAIN, SEDATION: Pain Management - PRN fentanyl. Delirium - Will add melatonin PRN qhs given poor sleep last night, CAM+ last night, but do not wantto oversedate INJURY / DISEASE SPECIFIC NEEDS: No acute issues DVT Prophylaxis: Subcutaneous Heparin - GI Prophylaxis: ppi ACTIVE LINES: Patient Lines/Drains/Airways Status Active Epidural Line / PICC Line / PIV Line / ART Line / Line / CVC Line Name: Placement date: Placement time: Site: Days: Peripheral IV 10/08/17 Left 10/08/17 1 DISPOSITION: Floor Total critical care time spent caring for this patient over the past 24 hours, including direct patient contact, management of life support systems review of data (i.e.: imaging and lab), discussion with team members, and excluding time spent on procedures: 31 minutes I have personally performed a face to face evaluation on this patient on 10/13/2017. The patient was initially seen by the EMERGENCY PLANNING AND RESPONSE MANAGER/Resident team. My findings are as above. Judi Carter MD [employer] Division of Trauma and Critical Care [facility] Academic Office [phone] Pager: [phone] 10/13/2017 9:13 AM * Tasha Norton, OT - 10/12/2017 3:50 PM EST Occupational Therapy Progress Note Name: Leoncio Rollins :1975 Attending Physician: Tami Richardson MD Admitting Diagnosis: S/P liver transplant (HCC) [Z94.4] Date: 10/12/2017 Room: [place] [id number] Hospital Course PT/OT: Pt is 42 y.o. 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 Intubated 09/18, extubated 10/09. Continued AMS, (-) MRI/Head CT. PMH: acute pancreatitis, ascites, DM, GERD, hepatic encephalopathy, HTN, SAL, vitamin D deficiency. Precautions: No limitations Activity Level: activity as tolerated Recommendations Recommend: Inpatient rehab AM-PAC 6 Clicks Daily Activity Inpatient Short Form: OT 6 Clicks Score: 13 Equipment recommendations: Defer Cognitive Status Patient is oriented to to person and to place. Patient is alert, cooperative, distracted and confused. Patient is able to follow one-step commands with increased time and cues. ADLs and Functional Mobility Bed Mobility: Maximal assistance and ( 2 person assistance ) supine<>sit with HOB elevated Sit to stand: Minimal assistance and ( 2 person assistance ) from EOB x3 reps up to RW LE ADLs: Maximal assistance to don B socks Toileting: Maximal assistance to place and void in urinal while in stance with RW Balance Static Sitting: Contact guard assistance Dynamic Sitting: Contact guard assistance Static Standing: Minimal assistance and ( 2 person assistance ) with RW Dynamic Standing: Moderate assistance and ( 2 person assistance ) with use of RW for lateral steps along EOB Pain Patient reports pain in abdomen ; no number stated. Pain interventions: repositioned and activity increased Positioning Patient left in bed at end of session, nurse notified, B soft restraint(s) re- applied, visitor(s) present and call light/ needs left within reach. Bed alarm unchanged from previous setting. Assessment Pt tolerated session well this date. Pt able demonstrate increased tolerance for EOB/OOB activity and increased independence with functional sit>stand transfers. Pt with increased orientation thisdate, however remains confused and distracted requiring significantly increased time for all processing and cues for initiation of all tasks. Pt requiring assistance of two persons to safely mobilizetherefore remains well below his baseline level of function. Recommend continued OT intervention while in house and IP rehab for further OT to ensure return to PLOF. Goals To be met in: 1 week Patient will complete supine to sit with moderate assistance Patient will complete sit to stand with contact guard assistance (goal met/upgraded 10/12) Patient will complete chair transfer :will tolerate assessment Patient will complete LE ADLs with moderate assistance. ?? Long-term goal: Patient will tolerate toilet transfers assessment (to be met in 2 weeks) ?? Patient stated goals: to go home ?? Rehabilitation Potential (for above goals): good Patients and/or caregivers as well as practitioners mutually agreed upon the above goals. ? Plan Pt to be seen a minimum of 3 time(s) per week. Patient/Family Education Educated patient on OT goals, OT plan of care, discharge recommendation, ADL training, functional mobility training and the importance of safety and fall prevention strategies including need for supervision/ assistance with OOB activity and use of call light. patient verbalized understanding. The plan of care assesses the patient's and/or caregiver's readiness, willingness, and ability to provide or support functional mobility and ADL tasks as needed upon discharge. Tasha HERNANDEZ OTR/L [facility] Pager: [phone] Office: [phone] Hours: M-F 7:30-4:00 Patient Class: Inpatient Time Start Time: 1120 Stop Time: 1159 Time Calculation (min): 39 min Charges $Therapeutic Activity: 23-37 mins $Self Care/ADL/Home Management Trainin-22 mins PMH: Past Medical History: Diagnosis Date ??? Acute pancreatitis ??? Ascites ??? Diabetes mellitus (HCC) ??? Esophageal varices with bleeding (HCC) ??? GERD (gastroesophageal reflux disease) ??? Hepatic encephalopathy (HCC) ??? Hypertension ??? 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 Vitamin D deficiency PSH: Past Surgical History: Procedure Laterality Date ??? LIVER TRANSPLANTATION N/A 10/08/2017 Procedure: TRANSPLANT LIVER; Surgeon: David Mendenhall MD; Location: [facility]; Service: Transplant; Laterality: N/A; ??? TIPS PROCEDURE 10/2016 ??? TIPS Revision 04/2017 * Genevieve Beltran, PT - 10/12/2017 12:52 PM EST Inpatient Physical Therapy Treatment Note Name: Leoncio Rollins :1975 Attending Physician: Tami Richardson MD Admitting Diagnosis: S/P liver transplant (HCC) [Z94.4] Date: 10/12/2017 Room: [place] [address] Hospital Course PT/OT: Pt is 42 y.o. 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 Intubated 09/18, extubated 10/09. Continued AMS, (-) MRI/Head CT. PMH: acute pancreatitis, ascites, DM, GERD, hepatic encephalopathy, HTN, SAL, vitamin D deficiency. Precautions: No limitations Activity level: activity as tolerated Assessment: Leoncio tolerated treatment well today. He was able to take lateral steps with RW and assist. He has shown great functional improvements since eval yesterday. He continues to be limited by decreased activity tolerance and cognition (although improving). Pt would benefit from further PT upon d/c; PT will f/u with pt and progress POC as appropriate. Recommendations: Recommend: inpatient rehab. AM-PAC 6 Clicks Basic Mobility Inpatient Short Form: PT 6 Clicks Score: 12 Equipment recommendations: defer until further OOB assessment Mobility Recommendations for Staff: Patient is unsafe to perform out of bed activity unless a therapist is present Present Cognitive Status: Patient is oriented X 4. Patient is alert, appropriate, distracted and confused. Patient is able to follow one-step commands with increased repetition and redirection. Pain: Patient denies pain Pain interventions: none Treatment: Functional Mobility: Bed mobility = Patient transitions from supine to sit with maximal assistance and ( 2 person assistance ) Sit to stand = Patient transfers from sit to stand with minimal assistance Stand to sit = Patient transfers from stand to sit with minimal assistance Patient able to take lateral steps with mod A x2 and RW. He completed sit<>stand x4. Balance: Static sitting = performs with contact guard assistance Dynamic sitting = performs with contact guard assistance Static standing = performs with maximal assistance and ( 2 person assistance ) using rolling walker Dynamic standing = performs with moderate assistance and ( 2 person assistance ) using rolling walker Positioning: Patient left in bed at end of session, nurse notified, BUE restraint(s) re- applied, visitor(s) present and call light/ needs left within reach. Bed alarm unchanged from previous setting. Goals: Patient met sit to stand goal(s) this date. Updated/active goals below: To be met by: 10/19/2017 ?? Bed mobility = Patient will transition from supine to sit with CGA Sit to stand = Patient will transfer from sit to stand with minimal assistance Bed to chair = Patient will tolerate assessment Gait = Patient will tolerate assessment ?? Long-term goal (to be met by 10/27/2017): Patient will transition from supine to sit with supervision Above goals discussed with patient and family -- Yes. Patient/Family Education: Educated patient and patient's family on the role of physical therapy, goals, plan of care, importance of increased activity, discharge recommendations, transfer training and safety and need for supervision during OOB activity and fall prevention strategies, including need for supervision/ assistance with OOB activity and use of call light; patient verbalized understanding. Handout(s) issued: none. Plan: Continue plan of care, at least 3 time(s) per week. The plan of care and recommendations assesses the patient's and/or caregiver's readiness, willingness, and ability to provide or support functional mobility and ADL tasks as needed upon discharge. Signed: JAY Monterroso Student Physical Therapist Pager: Office: -H [phone] ?? Patient class: Inpatient Start Time: 1120 Stop Time: 1159 Time Calculation (min): 39 min Units Rendered: $Therapeutic Activity: 3 units Co-treatment necessary secondary to anticipated level of skilled assistance required to safely treat and mobilize patient. PMH: Past Medical History: Diagnosis Date ??? Acute pancreatitis ??? Ascites ??? Diabetes mellitus (HCC) ??? Esophageal varices with bleeding (HCC) ??? GERD (gastroesophageal reflux disease) ??? Hepatic encephalopathy (HCC) ??? Hypertension ??? 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 Vitamin D deficiency PSH: Past Surgical History: Procedure Laterality Date ??? LIVER TRANSPLANTATION N/A 10/08/2017 Procedure: TRANSPLANT LIVER; Surgeon: David Mendenhall MD; Location: [facility]; Service: Transplant; Laterality: N/A; ??? TIPS PROCEDURE 10/2016 ??? TIPS Revision 04/2017 Cosigned by Cecelia Brooks PT at 10/12/2017 2:51 PM EST Associated attestation - Cecelia Brooks PT - 10/12/2017 2:51 PM EST I have read and agree with the documentation provided below by the student physical therapist. Cecelia Brooks PT, DPT Physical Therapist Pager: Office: m-C [phone] * DYLAN Grover - 10/12/2017 9:54 AM EST Speech Language Pathology Progress Note Name: Leoncio Rollins : 1975 Attending Physician: Tami Richardson MD Admission Diagnosis: S/P liver transplant (HCC) [Z94.4] Date: 10/12/2017 Reviewed Pertinent hospital course: Yes Hospital Course DAIRY TESTER: 42 y.o. male with ESLD w/ cirrhosis 2/ SAL, HTN, IDDM, GERD, and obesity s/pOLT on 10/08. Intubated 10/08-10/09. +Encephalopathy. CXR 10/08: Low lung volumes with minimal bibasilar atelectasis. No previous DAIRY TESTER. Assessment: Patient presents with grossly normal oropharyngeal swallow function with no signs or symptoms of penetration or aspiration for any consistency. Plan: 1. Discharge from DAIRY TESTER--no acute DAIRY TESTER needs at this time. 2. DAIRY TESTER at discharge is not recommended 3. Diet Recommended: regular diet with thin Subjective: Alert and Oriented x ( Self, DNT further ). Pain level (0 ). Objective: Short-Term Goals: Patient will demonstrate safe swallowing behaviors: with 90% accuracy with min cues. >>Goal met. Patient and/or caregiver will demonstrate ability to prepare food and liquid consistencies at 100% accuracy: independently. >>Goal discontinued. Patient and/or caregiver will demonstrate understanding of clinical signs and symptoms of aspiration at 100% accuracy: independently. >>Goal discontinued. Patient and/or caregiver will demonstrate understanding of risks associated with aspiration at 100%accuracy: independently. >>Goal discontinued. Time frame for goal to be met in: 10/19/17 Long-Term Goal: Patient will tolerate least restrictive diet with no signs or symptoms of aspiration at 100% accuracy: independently. >>Goal met: PO Trials Administered: Consistency Number/Order of Trials Signs/Symptoms Observed Thin Liquid 1-4, 7-10 no s/s Hard Solid 5, 6 no s/s or residue Time frame for goal to be met in: 10/26/17 Education: Patient educated on role of DAIRY TESTER, current POC, and discharge recommendations for DAIRY TESTER therapy. Patient educated on swallowing anatomy & physiology, dysphagia, risks of aspiration, current diet recommendations, and safe swallowing behaviors. Patient and family demo understanding. Shiloh Horton MA [facility]-DAIRY TESTER Speech-Language Pathologist [facility] Certified Clinician Pager: [phone] Office: [phone] Hours: M-F [phone] Weekend Pager: [phone] (10 AM - 2 PM) Time Start Time: 0940 Stop Time: 0950 Time Calculation (min): 10 min Charges $Swallow Tx : 1 Procedure * Margoth Taylor - 10/12/2017 7:10 AM EST 10/12/17 0700 24 HR Nutrition Analysis Totals 24 HR Total Calories (kcals) 532 kcals (26% calorie needs met) 24 Hr Total Protein (g) 21.9 g (21% protein needs met) Estimated Nutrition Needs: Needs based On: IBW 69.5kg Kcals/day: (30kcal/kg) 2085kcals Protein g/day: (1.5-2.0g/kg)104-139g Carbohydrate g/day: (45% of kcals) 235g Fluid ml/day: 1ml/kcal or as per MD 2 meals recorded for 10/11/17 Margoth CRAFT, LD Pager # [phone] * Je Dominguez MD - 10/12/2017 6:33 AM EST Surgical ICU H&P / CONSULT 10/12/2017 6:34 AM Patient:Leoncio Rollins HPI: Leoncio Rollins is a 42 y.o. 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 He was previously following at , but decompensated in 09/2016 with massive variceal bleed and TIPS procedure. As a result, he was second listed at . His liver disease has been complicated by encephalopathy, it is being treated with xifaxan and lactulose. After Stites-viviana catheter was placed, Mr. Rollins was found to have pulmonary hypertension with BPs in the 40s. His transplant was otherwise uncomplicated, EBL 2800, and he received 5 units FFP, 2 units pRBC, 1 plt. Additionally he received 1250 of Cell Saver. 24h Events: -CAM + overnight -Very poor sleep -Hypertension -> mild troponin elevation, EKG unremarkable, esmolol gtt at 80, target SBP 160 -Echo Plan: Wean esmolol as tolerated OOB BID PT/OT DAIRY TESTER eval Daily CXR PO metoprolol at 50 tid Melatonin PRN Scheduled Meds: ??? aspirin 81 mg Oral Daily with breakfast ??? entecavir 0.5 mg Oral DAILY 0600 ??? gabapentin 600 mg Oral TID ??? heparin (porcine) 5,000 Units Subcutaneous 3 times per day ??? melatonin 3 mg Oral Nightly (2100) ??? methylPREDNISolone sod suc(PF) 50 mg Intravenous Once Followed by ??? [START ON 10/13/2017] predniSONE 40 mg Oral Once Followed by ??? [START ON 10/14/2017] predniSONE 30 mg Oral Once Followed by ??? [START ON 10/15/2017] predniSONE 25 mg Oral Once Followed by ??? [START ON 10/16/2017] predniSONE 20 mg Oral Daily 0900 ??? metoprolol tartrate 50 mg Oral TID ??? mycophenolate 500 mg Oral BID ? ? nystatin 500,000 Units Swish & Swallow TID ??? pantoprazole 40 mg Oral DAILY 0600 ??? Pharmacy to Discontinue all previous insulin and antidiabetic medications MISCELLANEOUS Once ??? sulfamethoxazole-trimethoprim 1 tablet Oral Daily 0900 ??? valGANciclovir 900 mg Oral Daily 0900 Continuous Infusions: ??? esmolol (BREVIBLOC) 20 mg/mL 80 mcg/kg/min (10/12/17 0123) ??? insulin (HumuLIN R) infusion 5 Units/hr (10/12/17 8201) ??? sodium chloride 0.9 % 75 mL/hr (10/11/17 2933) PRN Meds:.All IV Medications in Normal Saline 0.9%, dextrose 50 % in water (D50W), glucose, hydrALAZINE, insulin (HumuLIN R) infusion AND INSULIN INFUSION PROTOCOL (NOT FOR DKA OR HHS), labetalol, oxyCODONE OR oxyCODONE, traMADol OR traMADol Allergies Allergen Reactions ??? Codeine ??? Dilaudid [Hydromorphone] Other (See Comments) Hallucinations ??? Flexeril [Cyclobenzaprine] Social History Substance Use Topics ??? Smoking status: Never Smoker ??? Smokeless tobacco: Never Used ??? Alcohol use No Family History Problem Relation Age of Onset ??? Diabetes Sister REVIEW OF SYSTEMS: Pertinent items are noted in HPI. PHYSICAL EXAM: CONSTITUTIONAL: General: NAD Temp (24hrs), Av.7 ??F (37.1 ??C), Min:98.1 ??F (36.7 ??C), Max:99.2 ??F (37.3 ??C) BP 143/78 Pulse 73 Temp 98.7 ??F (37.1 ??C) (Axillary) Resp 16 Ht 5' 7 (1.702 m) Wt (!) 278 lb 14.1 oz (126.5 kg) SpO2 98% BMI 43.68 kg/m?? HEENT: Exam: conjuctiva, lids normal, scleral icterus and pupils equal A/P:No acute issues RESPIRATORY: Exam: effort normal and clear to auscultation bilaterally Respiratory Support: Vent Setting: No data found. Lab 10/09/17 1533 PH ARTERIAL 7.41 PCO2 ARTERIAL 34* PO2 ARTERIAL 123* HCO3 ARTERIAL 21* BASE EXCESS ARTERIAL -2.9* Total RSBI: 6 (10/09/17 0829) A/P: Hypoxia: -on 1L NC -pulm toilet - Improved R lung consolidation? - likely edema s/p Lasix 60 - Continue to trend CXR CARDIOVASCULAR: Exam: auscultation normal, rhythm and rate normal and pulses equal bilaterally Troponin: Lab 10/10/17 0632 TROPONIN I 0.15* Hemodynamics: No data found. A/P: NSR on monitor Hypertension Goal SBP 160 121-164/66-94 ASA Home Meds Held: Losartan 50 mg daily Coreg 25mg BID esmolol gtt - 80mcg/kg/min - Wean as tolerated S/p Lasix 60 Metoprolol 50 tid Restart home clonidine 0.1 BID Troponin Elevation: -possibly related to hypertension -EKG unchanged -will trend, control HTN with esmolol gtt -0.16 -> 0.15 - ECHO yesterday - EF 55-60% - No wall motion abnormalities - RV Dilation - RA Dilation - pHTN at least 42 - No valvular disfunction NUTRITION: TF:Diabetasource goal 75 at goal TPN rate:N/A A/P: Diabetic diet Cleared for small swallows Repeat DAIRY TESTER eval today - 50%meals GASTROINTESTINAL: Exam: no masses or tenderness, soft, obese, no rebound and no guarding Hepatic Profile: Lab 10/12/17 0110 ALK PHOS 48 ALT 181* AST 22 BILIRUBIN TOTAL 0.8 ALBUMIN 2.1* 2.1* BILIRUBIN DIRECT 0.31 TOTAL PROTEIN 4.0* A/P: ESLD 2/2 SAL - Right Hepatic artery reconstruction - ASA - S/P OLT 10/08/2017 - LFTs and bilis downtrending AST 22 (71) ALT 181 (297) Tbili 0.8 (1.0) D Bili 0.31 (0.41) - Donor serology - HBcAb+ - HBV ALEXANDRA + - HCVAb+ - HCV ALEXANDRA- - Valcyte - Bactrim - Mycostatin - holding prograf Hepatic Encephalopathy - Holding Lactulose, Rifaximin - Continue to trend mental status - Ammonia 68 GERD - Protonix History of esophageal varices with bleeding - - S/P TIPS Ascites - Mild - S/P OLT 10/08/2017 History of acute pancreatitis - No present symptoms - Will monitor FLUIDS/ELECTROLYTES: IVFluids: off Labs: Lab 10/12/17 0110 SODIUM 143 POTASSIUM 3.8 CHLORIDE 113* CO2 25 BUN 54* CREATININE 1.59* GLUCOSE 159* CALCIUM 7.5* MAGNESIUM 2.1 PHOSPHORUS 3.1 Date 10/11/17 07 - 10/12/17 0659 10/12/17 0700 - 10/13/17 0659 Shift 9752-7318 6040-3597 7845-1526 24 Hour Total 8199-8513 3981-9310 4803-8443 24 Hour Total I N T A K E I.V. (mL/kg) 944 (7.5) 849 (6.7) 1793 (14.2) Volume (mL) Insulin 65 76 141 Volume (mL) Esmolol 234 211 445 Volume (mL) (sodium chloride 0.9 % infusion) 888 012 2420 NG/GT 341 393 734 Intake (mL) (Feeding Tube Nasogastric Nares) 341 393 734 IV Piggyback 50 50 Volume (mL) (mycophenolate (CELLCEPT) 500 mg in dextrose 5% in water (D5W) 50 mL IVPB) 50 50 Shift Total (mL/kg) 1335 (10.6) 1242 (9.8) 2577 (20.4) O U T P U T Urine (mL/kg/hr) 1400 (1.4) 1050 (1) 2450 Urine 1400 1050 2450 Drains 160 150 310 Output (mL) (Drain 2 Liver Abdomen Right) 160 150 310 Shift Total (mL/kg) 1560 (12.3) 1200 (9.5) 2760 (21.8) Weight (kg) 126.5 126.5 126.5 126.5 126.5 126.5 126.5 126.5 I/O: 2.5/2.7 UOP: 2400 (1070) Drain 1: Removed Drain 2: 310 (320) A/P: Will monitor electrolytes - Hypocalcemia, continue to trend RENAL: A/P: CARMEN on CKD - Cr 1.59 (1.69) - UOP Improving today - Baseline Cr 1.39-1.4 - Baseline BUN 18-20 SKIN/MUSCULOSKELETAL: Exam: inspection normal, pitting edema and moves all extremities well A/P: Vitamin D deficiency Will supplement when taking PO HEMATOLOGIC: Labs: Lab 10/12/17 0110 WBC 9.3 HEMOGLOBIN 8.1* HEMATOCRIT 22.7* PLATELETS 40* Lab 10/10/17 1253 INR 1.3* Lab 10/08/17 1353 FIBRINOGEN LEVEL 192* Lab 10/10/17 0158 TEG ANGLE 73.0 TEG K TIME 135.0 TEG LYSIS 30 0.0 TEG MAX AMPLITUDE 51.5* TEG RTIME 35.0 A/P: Acute blood loss anemia: HGB 8.8 (Stable 8.8) Will transfuse for <7 Leukocytosis: - Resolved 9.0 (Peak 14.9) Thrombocytopenia: - 38 (Downtrending 92->63->46->38 -->40) - ANA MARIA score 4, Will discuss Sending HIT Panel - Repeat afternoon CBC Coagulopathy - Resolved Likely 2/2 blood loss Elevated INR intraop (2.2) INR 1.3 now Will continue to trend TEG normalized ENDOCRINE: FSBS range: Lab 10/12/17 0628 10/12/17 0420 10/12/17 0311 10/12/17 0213 10/12/17 0104 10/12/17 0016 10/11/17 2306 10/11/17 2214 POC GLU MONITORING DEVICE 96 116* 129* 136* 155* 165* 174* 193* Lab 10/08/17 1232 10/08/17 1138 10/08/17 1109 10/08/17 1004 10/08/17 0903 POCGLUART 225* 218* 167* 178* 176* Insulin regimen:N/A A/P: D/c insulin gtt --> NPH 35 BID and high dose SSI Insulin dependent DMII INFECTIOUS DISEASE: Culture date: N/A Culture result: N/A Lab Results Component Value Date COLORU Yellow 10/10/2017 CLARITYU Clear 10/10/2017 PROTEINUA 100 (A) 10/10/2017 PHUR 5.0 10/10/2017 LABSPEC 1.028 10/10/2017 GLUCOSEU Negative 10/10/2017 BLOODU Small (A) 10/10/2017 LEUKOCYTESUR Negative 10/10/2017 NITRITE Negative 10/10/2017 BILIRUBINUR Negative 10/10/2017 UROBILINOGEN <2.0 10/10/2017 Lab Results Component Value Date ISO1 No Growth To Date 10/10/2017 ISO1 No Growth To Date 10/10/2017 No results found for: AEROBOT, ANABOT, LABGRAM, ISO2, ISO3, ISO4, ISO5, ISO6, PNAFISH Antibiotics (day):N/A A/P: Prophylaxis per primary CMV IGG - EBV IGG + Mumps IGG + Rubella - Rubeola - VZV IGG + Hep A IGG + Hep B Surface AB + Core - HCV - TB - Toxoplasma - HIV - Treponema - Organ ALEXANDRA HBV + NEUROLOGIC: Exam: Awake, follows commands, strength intact all 4 extremities Eye Openin, Best Verbal Response: 4,Best Motor Response: 6 Marcio Coma Scale Score: 14 No data found. EEG: N/A EVD: N/A TCDs:N/A ICP Management: N/A A/P: AMS: -unclear cause, head CT negative -ammonia 91 -MRI - Motion artifact - Questionable hyperdense T2 in periventricular white matter, likely chronic PSYCHIATRIC: Exam: sedated Sifuentes Agitation Sedation Scale: -1 Overall CAM-ICU : Delirium Present A/P: Pain -prn fentanyl Insomnia: - Will add Melatonin PRN QHS Order GI ASST Patient Lines/Drains/Airways Status Active Epidural Line / PICC Line / PIV Line / ART Line / Line / CVC Line Name: Placement date: Placement time: Site: Days: Peripheral IV 10/08/17 Left 10/08/17 4 Arterial Line Right Radial Radial Introducer 10/08/17 10/08/17 0953 3 Anders: Yes If yes: Strict I/O --> will d/c EVD: No A/P: D/C Stites, obtain PIVs and d/c MAC; D/C anders and art line INJURY/DISEASE SPECIFIC NEEDS: DVT Prophylaxis: SCDs, SQH GI Prophylaxis: Protonix ??? aspirin 81 mg Oral Daily with breakfast ??? entecavir 0.5 mg Oral DAILY 0600 ??? gabapentin 600 mg Oral TID ??? heparin (porcine) 5,000 Units Subcutaneous 3 times per day ??? melatonin 3 mg Oral Nightly (2100) ??? methylPREDNISolone sod suc(PF) 50 mg Intravenous Once Followed by ??? [START ON 10/13/2017] predniSONE 40 mg Oral Once Followed by ??? [START ON 10/14/2017] predniSONE 30 mg Oral Once Followed by ??? [START ON 10/15/2017] predniSONE 25 mg Oral Once Followed by ??? [START ON 10/16/2017] predniSONE 20 mg Oral Daily 0900 ??? metoprolol tartrate 50 mg Oral TID ??? mycophenolate 500 mg Oral BID ? ? nystatin 500,000 Units Swish & Swallow TID ??? pantoprazole 40 mg Oral DAILY 0600 ??? Pharmacy to Discontinue all previous insulin and antidiabetic medications MISCELLANEOUS Once ??? sulfamethoxazole-trimethoprim 1 tablet Oral Daily 0900 ??? valGANciclovir 900 mg Oral Daily 0900 ??? esmolol (BREVIBLOC) 20 mg/mL 80 mcg/kg/min (10/12/17 0123) ??? insulin (HumuLIN R) infusion 5 Units/hr (10/12/17 6881) ??? sodium chloride 0.9 % 75 mL/hr (10/11/17 1905) JE DOMINGUEZ 10/12/2017 6:34 AM Cosigned by Judi Carter MD at 10/12/2017 5:43 PM EST Associated attestation - Judi Carter MD - 10/12/2017 5:43 PM EST ICU ATTENDING PROGRESS NOTE Leoncio Rollins was seen by the resident team, nurses, pharmacist and respiratory therapists of the multidisciplinary critical care team on 10/12/2017. I have personally seen and examined this patient today (10/12/2017 ) and reviewed the events of the previous 24 hours with the multidisciplinary critical care team and the case has been discussed with the Transplant team. I note the following in my assessment and will implement this plan of coordinated critical care management as follows: 42 yo M with HTN, DM-II, hyperlipidemia, and ESLD from SAL (encephalopathy, varices, MELD 25) and emergent TIPS () who underwent OLT on 10-07-2017. Intraoperative mean PA pressures initially 40s, PAS 60s. Otherwise uneventful transplant I note the following events over the last 24 hours, with the assessment and implementation of coordinated critical care management as below: MRI with no acute findings. CAM positive. Still hypertensive on esmolol gtt. HEENT: No acute issues. RESPIRATORY: Atelectasis/pulmonary collapse Hypoxia Respiratory failure, acute WITH trauma or surgery Extubated 10-09 successfully - Continue IS, pulm toileting. EZPAP. CXR with edema - primary team dosed lasix - continue to wean O2. CARDIOVASCULAR: Hypertension, essential benign pulm hypertension Hyperlipidemia - Tachycardia Home meds coreg 25BID and losartan 50 daily - Esmolol at 80mg - increased metoprolol 50mg TID and add home clonidine - goal d/c esmolol gtt NUTRITION: No acute issues - TF at goal with diabetasource. GASTROINTESTINAL: Cirrhosis, not secondary to alcohol s/p OLT - LFTs improving. continue ASA for reconstructed hepatic artery. Duplex with normal RIs. Continue entecavir GERD - on home ppi - continue given immunosuppressives. FLUIDS / ELECTROLYTES: HLIVF Hypomagnesemia - supplement per protocol RENAL: CKD - baseline cr 1.4 Peaked at 2.2. Improved to 1.6. UOP improved. SKIN/MUSCULOSKELETAL No acute issues. HEMATOLOGIC: Coagulopathy, unspecified - resolved. Thrombocytopenia - platelets dropping, currently 40; HIT score 4 (intermediate probability) - will monitor. Acute hemorrhagic anemia - hgb 8.1. Will monitor today - does not appear to be bleeding. ENDOCRINE: DM, type II, controlled - d/c insulin gtt; start 35/35 NPH. HbA1C 5.4 as outpatient. txp immunosuppression - steroids, cellcept INFECTIOUS DISEASE: hepatitis B - will need entecavir txp prophylaxis - nystatin, valcyte. NEUROLOGIC: Altered Mental Status - after extubation with new aphasia and difficulty FCs. CT/MRI negative. Neurology consulted. slowly improved today. PSYCHIATRIC, PAIN, SEDATION: Pain Management - PRN fentanyl. Delirium - Will add melatonin PRN qhs given poor sleep last night, CAM+ last night, but do not wantto oversedate INJURY / DISEASE SPECIFIC NEEDS: No acute issues DVT Prophylaxis: Subcutaneous Heparin - GI Prophylaxis: ppi ACTIVE LINES: Patient Lines/Drains/Airways Status Active Epidural Line / PICC Line / PIV Line / ART Line / Line / CVC Line Name: Placement date: Placement time: Site: Days: Peripheral IV 10/08/17 Left 10/08/17 1 Arterial Line Right Radial Radial Introducer 10/08/17 10/08/[address] PIV and d/c MAC. Keep art line until this afternoon. ACTIVE DRAINS: Urinary Catheter? Anders - Reason: Adequate I/O DISPOSITION: Remain in ICU Total critical care time spent caring for this patient over the past 24 hours, including direct patient contact, management of life support systems review of data (i.e.: imaging and lab), discussion with team members, and excluding time spent on procedures: 35 minutes This note documents care provided on 10/12/2017. Judi Carter MD [employer] Division of Trauma and Critical Care [facility] Academic Office [phone] Pager: [phone] 10/10/2017 6:24 AM * Tam Neil MD - 10/11/2017 11:57 PM EST Transplant Surgery Progress Note Patient: Leoncio Rollins Admit Date: 10/07/2017 OR Date: 10/08/2017 Subjective: SHARON overnight. HDS. Hypertension improved Objective: Vitals: Temp: [98.1 ??F (36.7 ??C)-99.2 ??F (37.3 ??C)] 99.2 ??F (37.3 ??C) Heart Rate: [75-83] 79 Resp: [13-16] 16 BP: (128-166)/(70-105) 128/78 Arterial Line BP: (145-185)/(56-87) 148/67 Date 10/10/17 2300 - 10/11/17 0659 10/11/17 0700 - 10/12/17 0659 Shift 4643-5884 24 Hour Total 9635-6595 8521-1345 5420-3905 24 Hour Total I N T A K E P.O. 100 P.O. 100 I.V. (mL/kg) 1020.3 (8.1) 2819.7 (22.3) 944 (7.5) 849 (6.7) 1793 (14.2) Volume (mL) Insulin 54.3 139.7 65 76 141 Volume (mL) Esmolol 207 634 234 211 445 Volume (mL) Pantoprazole 10 10 Volume (mL) (electrolyte-R (pH 7.4) (NORMOSOL-R pH 7.4) iv solution SolP) 749 2036 Volume (mL) (sodium chloride 0.9 % infusion) 284 676 1648 NG/GT 161 243 341 393 734 Intake (mL) (Feeding Tube Nasogastric Nares) 161 243 341 393 734 IV Piggyback 100 50 50 Volume (mL) (mycophenolate (CELLCEPT) 500 mg in dextrose 5% in water (D5W) 50 mL IVPB) 100 50 50 Shift Total (mL/kg) 1181.3 (9.3) 3262.7 (25.8) 1335 (10.6) 1242 (9.8) 2577 (20.4) O U T P U T Urine (mL/kg/hr) 450 1130 1400 (1.4) 1050 (1) 2450 Urine 1400 1050 2450 Output (mL) ([REMOVED] IUC (Anders) Straight-tip 16 Fr.) 450 1130 Drains 110 320 160 150 310 Output (mL) (Drain 2 Liver Abdomen Right) 110 320 160 150 310 Shift Total (mL/kg) 560 (4.4) 1450 (11.5) 1560 (12.3) 1200 (9.5) 2760 (21.8) Weight (kg) 126.5 126.5 126.5 126.5 126.5 126.5 Physical Exam: Gen: NAD Neuro: improved mental status, answers questions CV: RRR Resp: nonlabored, CTAB Abd: soft, approp TTP, incision with raheel c/d/i, mine x 1 serosang Ext: WWPx4, SCDs Skin: warm and dry Labs: Recent Labs 10/10/17 1253 10/11/17 0423 10/11/17 1408 WBC 6.9 9.0 10.5 HGB 8.8* 8.8* 9.3* HCT 25.5* 24.9* 25.9* PLT 46* 38* 41* Recent Labs 10/10/17 0158 10/10/17 1253 10/11/17 0423 NA 144 142 142 K 4.0 4.4 4.1 CL 113* 113* 112* CO2 20* 22 23 BUN 46* 49* 50* CREATININE 2.22* 2.08* 1.69* GLUCOSE 137* 212* 148* CALCIUM 8.4* 8.1* 8.0* MG 2.0 2.2 2.3 PHOS 4.2 5.0* 4.2 Recent Labs 10/11/17 1752 10/11/17 1908 10/11/17 2028 10/11/17 2114 10/11/17 2214 10/11/17 2306 POCGMD 219* 185* 168* 186* 193* 174* Recent Labs 10/10/17 0158 10/10/17 1253 10/11/17 0423 AST 231* 179* 71* ALT 439* 376* 297* BILITOT 1.1 1.0 1.0 BILIDIRECT 0.53* 0.45* 0.41* ALKPHOS 81 53 46 ALBUMIN 2.3* 2.3* 2.2* 2.2* 2.4* 2.4* Recent Labs 10/09/17 1408 10/10/17 0158 10/10/17 1253 INR 1.3* 1.3* 1.3* PROTIME 16.3* 16.5* 16.1* Current Medications: Scheduled Meds: ??? aspirin 81 mg Oral Daily with breakfast ??? [START ON 10/12/2017] entecavir 0.5 mg Oral DAILY 0600 ??? gabapentin 600 mg Oral TID ??? heparin (porcine) 5,000 Units Subcutaneous 3 times per day ??? melatonin 3 mg Oral Nightly (2100) ??? [START ON 10/12/2017] methylPREDNISolone sod suc(PF) 50 mg Intravenous Once Followed by ??? [START ON 10/13/2017] predniSONE 40 mg Oral Once Followed by ??? [START ON 10/14/2017] predniSONE 30 mg Oral Once Followed by ??? [START ON 10/15/2017] predniSONE 25 mg Oral Once Followed by ??? [START ON 10/16/2017] predniSONE 20 mg Oral Daily 0900 ??? metoprolol tartrate 50 mg Oral TID ??? mycophenolate 500 mg Oral BID ? ? nystatin 500,000 Units Swish & Swallow TID ??? [START ON 10/12/2017] pantoprazole 40 mg Oral DAILY 0600 ??? Pharmacy to Discontinue all previous insulin and antidiabetic medications MISCELLANEOUS Once ??? sulfamethoxazole-trimethoprim 1 tablet Oral Daily 0900 ??? [START ON 10/12/2017] valGANciclovir 900 mg Oral Daily 0900 Continuous Infusions: ??? esmolol (BREVIBLOC) 20 mg/mL 80 mcg/kg/min (10/11/172124) ??? insulin (HumuLIN R) infusion 9 Units/hr (10/11/171907) ??? sodium chloride 0.9 % 75 mL/hr (10/11/171904) PRN Meds: All IV Medications in Normal Saline 0.9%, dextrose 50 % in water (D50W), glucose, hydrALAZINE, insulin (HumuLIN R) infusion AND INSULIN INFUSION PROTOCOL (NOT FOR DKA OR HHS), labetalol, oxyCODONE OR oxyCODONE, traMADol OR traMADol Assessment/Plan: Leoncio Rollins is a 42 y.o. 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 Plan: - Neuro: - Oxycodone, tramadol, Neurontin - melatonin - CV: Hypertension improving - esmolol gtt, wean as tolerated - metoprolol 50 tid - ASA - Pulm: requiring supplemental oxygen - high flow nasal cannula - FEN/GI: - Diabetic diet, Diabetisource AC tube feeds at goal - Potential removal of feeding tube as po intake increases over time - Protonix daily - HLIV - : voiding spontaneously - CARMEN resolving, Cr 1.69 (2.08) - Received 60 Lasix yesterday - IS: Cellcept, Solumedrol, Thymo (CD3 8 yesterday, so held Thymo yesterday) - Renal sparing: holding Prograf at this time - ID: entecavir, nystatin soln, Bactrim, Valcyte - Endo: BG 130-230 range - insulin gtt, wean as tolerated - Heme: Hgb stable 9.3 (8.8) - PT/OT recs: inpatient rehab - PPx: SQH, SCDs - Dispo: SICU TAM NEIL MD Transplant Surgery [id number] Pager Cosigned by David Mendenhall MD at 10/12/2017 10:54 AM EST Associated attestation - David Mendenhall MD - 10/12/2017 10:54 AM EST Immunosuppression reviewed. Ambulate, OOB 3x a day. Encourage nutrition, monitor PO intake. Continue to stress education and teaching of daily activities, medications and post-surgical issues. I have seen and examined the patient and agree with the plan. All points of care were reviewed in amultidisciplinary fashion with the housestaff and teams involved. * Kelly Lemons MD - 10/11/2017 1:44 PM EST Images from the original note were not included. [facility] Neurology Department CONSULT FOLLOW-UP NOTE 10/11/2017 1:44 PM Patient:Leoncio Rollins LOS: 4 days Reason for consult: [facility] community resource officer: KELLY LEMONS MD Requesting MD/Contact #: Tami Richardson MD IMPRESSION/ RECOMMENDATION : Leoncio Rollins is a 42 y.o. male on hospital day 4. The Neurological issues being addressed in today's encounter are as follows: Encephalopathy MRI was unremarkable. Nothing to suggest ODS, stroke or PRES. He looks slightly better today and based on his MRI results it seems most likely his altered mental status is related to hepatic encephalopathy. Per his current condition is similar to previous episodes of HE. Recommendations: - continue to follow clinically - consider trending ammonia though may not be needed if he continues to improve Neurology will sign off at this time. Please call with any questions. Patient seen and discussed with attending of record Dr. Melchor. THANK YOU FOR THIS CONSULT. PLEASE PAGE #[phone] WITH ANY QUESTIONS. Interval hx SHARON overnight. ROS Unable to assess Medications Medication List TAKE these medications, which are NEW Quantity/Refills blood sugar diagnostic Strp Use to test blood sugar up to 4 times a day. Quantity: 150 strip Refills: 5 blood-glucose meter Misc Use as instructed to check blood sugar daily. Quantity: 1 each Refills: 0 insulin lispro 100 unit/mL Inpn Administer insulin with meals per sliding scale: If blood sugar is 150-199 inject 1 unit, if blood sugar is 200-249 inject 2 units, if blood sugar is 250- 299 inject 3 units, if blood sugar is 300-349inject 4 units, if blood sugar is greater than 349 inject 5 units Quantity: 9 mL Refills: 5 insulin NPH isoph U-100 human 100 unit/mL (3 mL) Inpn Inject 5 Units subcutaneously 2 times a day. (DISCARD PEN 28 DAYS AFTER OPENING.) Quantity: 9 mL Refills: 5 lancets 28 gauge Misc Use to test blood sugar up to 4 times a day. Quantity: 100 each Refills: 5 mycophenolate 250 mg capsule Commonly known as: CELLCEPT Take 2 capsules (500 mg total) by mouth 2 times a day. Quantity: 120 capsule Refills: 5 nystatin 100,000 unit/mL suspension Commonly known as: MYCOSTATIN Take 5 mLs (500,000 Units total) by mouth 3 times a day. Quantity: 473 mL Refills: 0 pantoprazole 40 MG tablet Commonly known as: PROTONIX Take 1 tablet (40 mg total) by mouth every morning before breakfast. Quantity: 30 tablet Refills: 2 * pen needle, diabetic 32 gauge x 5/32 Ndle Use as directed to inject insulin 4 times daily. Quantity: 150 each Refills: 5 * pen needle, diabetic 32 gauge x 5/32 Ndle For use with insulin pen. Use as instructed. Quantity: 150 each Refills: 5 predniSONE 5 MG tablet Commonly known as: DELTASONE Take 4 tablets by mouth daily. Quantity: 120 tablet Refills: 5 sulfamethoxazole-trimethoprim 400-80 mg per tablet Commonly known as: BACTRIM,SEPTRA Take 1 tablet by mouth daily. Quantity: 30 tablet Refills: 5 tacrolimus 1 MG capsule Commonly known as: PROGRAF Take 5 capsules (5 mg total) by mouth 2 times a day. Quantity: 300 capsule Refills: 5 valGANciclovir 450 mg tablet Commonly known as: VALCYTE Take 1 tablet (450 mg total) by mouth daily. Quantity: 30 tablet Refills: 2 * This list has 2 medication(s) that are the same as other medications prescribed for you. Read thedirections carefully, and ask your doctor or other care provider to review them with you. ASK your doctor about these medications Quantity/Refills APIDRA SOLOSTAR U-100 INSULIN 100 unit/mL Inpn Generic drug: insulin glulisine U-100 Inject subcutaneously. Refills: 0 BASAGLAR KWIKPEN U-100 INSULIN 100 unit/mL (3 mL) Inpn Generic drug: insulin glargine Inject 45 Units subcutaneously at bedtime. Refills: 0 BUTRANS 5 mcg/hour Ptwk Generic drug: buprenorphine Place 5 mcg/hr onto the skin every 7 days. Indications: last filled 08/18/17 For: last filled 08/18/17 Refills: 0 carvedilol 25 MG tablet Commonly known as: COREG Take 25 mg by mouth 2 times a day with meals. Refills: 0 cloNIDine HCl 0.1 MG tablet Commonly known as: CATAPRES Take 0.1 mg by mouth 2 times a day. Refills: 0 ergocalciferol 50,000 unit capsule Commonly known as: ERGOCALCIFEROL Take 50,000 Units by mouth once a week. Refills: 0 esomeprazole 40 MG capsule Commonly known as: NEXIUM Take 40 mg by mouth every morning before breakfast. Refills: 0 gabapentin 600 MG tablet Commonly known as: NEURONTIN Take 600 mg by mouth 3 times a day. Refills: 0 glimepiride 1 MG tablet Commonly known as: AMARYL Take 1 mg by mouth before breakfast. Refills: 0 hydrALAZINE 10 MG tablet Commonly known as: APRESOLINE Take 10 mg by mouth every 12 hours. Refills: 0 lactulose 10 gram/15 mL solution Commonly known as: CHRONULAC Take 20 g by mouth 3 times a day. Indications: Hepatic Encephalopathy For: Hepatic Encephalopathy Refills: 0 losartan 50 MG tablet Commonly known as: COZAAR Take 50 mg by mouth daily. Refills: 0 metFORMIN 500 MG tablet Commonly known as: GLUCOPHAGE Take 1,000 mg by mouth 2 times a day with meals. Refills: 0 rifAXIMin 550 mg Tab tablet Commonly known as: XIFAXAN Take 550 mg by mouth 2 times a day. Refills: 0 tiZANidine 4 MG capsule Commonly known as: ZANAFLEX Take 0.5 mg by mouth at bedtime as needed for Muscle spasms. Refills: 0 zinc sulfate 220 (50) mg capsule Commonly known as: ZINCATE Take 1 capsule (220 mg total) by mouth 2 times a day. Quantity: 60 capsule Refills: 3 Where to Get Your Medications These medications were sent to [facility] [address] [place] [id number] Hours: Monday - Monday: 8:45AM - 5:00PM ?? blood sugar diagnostic Strp ?? blood-glucose meter Misc ?? insulin lispro 100 unit/mL Inpn ?? insulin NPH isoph U-100 human 100 unit/mL (3 mL) Inpn ?? lancets 28 gauge Misc ?? mycophenolate 250 mg capsule ?? nystatin 100,000 unit/mL suspension ?? pantoprazole 40 MG tablet ?? pen needle, diabetic 32 gauge x Ndle ?? pen needle, diabetic 32 gauge x Ndle ?? predniSONE 5 MG tablet ?? sulfamethoxazole-trimethoprim 400-80 mg per tablet ?? tacrolimus 1 MG capsule ?? valGANciclovir 450 mg tablet Scheduled Meds: ??? aspirin 81 mg Oral Daily with breakfast ??? entecavir 0.5 mg Oral DAILY 0600 ??? gabapentin 600 mg Oral TID ??? heparin (porcine) 5,000 Units Subcutaneous 3 times per day ??? melatonin 3 mg Oral Nightly (2100) ??? [START ON 10/12/2017] methylPREDNISolone sod suc(PF) 50 mg Intravenous Once Followed by ??? [START ON 10/13/2017] predniSONE 40 mg Oral Once Followed by ??? [START ON 10/14/2017] predniSONE 30 mg Oral Once Followed by ??? [START ON 10/15/2017] predniSONE 25 mg Oral Once Followed by ??? [START ON 10/16/2017] predniSONE 20 mg Oral Daily 0900 ??? metoprolol tartrate 37.5 mg Oral TID ??? mycophenolate (CELLCEPT) IVPB 500 mg Intravenous BID ? ? nystatin 500,000 Units Swish & Swallow TID ??? pantoprazole 40 mg Intravenous DAILY 0600 ??? Pharmacy to Discontinue all previous insulin and antidiabetic medications MISCELLANEOUS Once ??? sulfamethoxazole-trimethoprim 1 tablet Oral Daily 0900 ??? [START ON 10/12/2017] valGANciclovir 900 mg Oral Daily 0900 Continuous Infusions: ??? esmolol (BREVIBLOC) 20 mg/mL 80 mcg/kg/min (10/11/17 1337) ??? insulin (HumuLIN R) infusion 12 Units/hr (10/11/17 1302) ??? sodium chloride 0.9 % 75 mL/hr (10/11/17 0611) PRN Meds:.All IV Medications in Normal Saline 0.9%, dextrose 50 % in water (D50W), glucose, hydrALAZINE, insulin (HumuLIN R) infusion AND INSULIN INFUSION PROTOCOL (NOT FOR DKA OR HHS), labetalol, oxyCODONE OR oxyCODONE, traMADol OR traMADol Physical Exam: Temp: [98.1 ??F (36.7 ??C)-98.4 ??F (36.9 ??C)] 98.4 ??F (36.9 ??C) Heart Rate: [75-90] 79 Resp: [14-16] 15 BP: (139-166)/(75-105) 147/85 Arterial Line BP: (149-185)/(59-88) 150/62 Wt Readings from Last 3 Encounters: 10/11/17 (!) 278 lb 14.1 oz (126.5 kg) 10/02/17 (!) 251 lb (113.9 kg) 08/31/17 (!) 255 lb (115.7 kg) Appears stated age in NAD sitting up in bed Regards and tracks examiner and family members Nods yes and shakes head no appropriately Says maybe 1 word but otherwise anarthric EOM grossly intact full range No facial droop Moves all 4 antigrav or greater Mild postural tremor seen in the hands Follows most simple commands LABS Lab Results Component Value Date GLUCOSE 148 (H) 10/11/2017 BUN 50 (H) 10/11/2017 CO2 23 10/11/2017 CREATININE 1.69 (H) 10/11/2017 K 4.1 10/11/2017 NA 142 10/11/2017 CL 112 (H) 10/11/2017 CALCIUM 8.0 (L) 10/11/2017 No results found for: GLUFAST Lab Results Component Value Date WBC 9.0 10/11/2017 HGB 8.8 (L) 10/11/2017 HCT 24.9 (L) 10/11/2017 MCV 102.3 (H) 10/11/2017 PLT 38 (L) 10/11/2017 Lab Results Component Value Date INR 1.3 (H) 10/10/2017 Lab Results Component Value Date CHOLTOT 86 08/21/2017 TRIG 187 (H) 10/08/2017 HDL 26 (L) 08/21/2017 LDL 41 08/21/2017 Lab Results Component Value Date HGBA1C 5.4 10/09/2017 No results found for: PROTEINCSF, GLUCCSF, CFLCCOM, CULTCSF Scans: X-ray Portable Chest Final Result IMPRESSION: Interval removal of the Stites-Viviana catheter, ET tube, and the NG tube. Increased bibasilar airspace disease, right greater than left. Approved by Fide Paulino on 10/11/2017 6:42 AM EST I have personally reviewed the images and I agree with this report. Report Verified by: ANDERSON GARRISON M.D. at 10/11/2017 6:49 AM EST MRI Head WO contrast Final Result IMPRESSION: Moderately limited study with no ischemic changes. Questionable hazy areas of hyperintense T2 signal in the periventricular white matter, likely chronic, no definite acute finding noted. I have personally reviewed the images and I agree with this report. Report Verified by: RAMYA NICKERSON M.D. at 10/10/2017 4:01 PM EST XR Portable Feeding Tube Check Final Result IMPRESSION: Feeding tube tip is in the region of the gastric body. Report Verified by: Lion Mike M.D. at 10/10/2017 12:[address] Head WO contrast Final Result IMPRESSION: No acute intracranial abnormality. Approved by Juaquin Helton on 10/09/2017 6:43 PM EST I have personally reviewed the images and I agree with this report. Report Verified by: Kim Almonte M.D. at 10/09/2017 7:01 PM EST US Abdomen Complete Final Result IMPRESSION: Abdomen: Normal sonographic appearance of the transplant liver. Liver duplex: Mildly turbulent flow within the main portal vein. Normal directional flow with resistive indices as detailed above. Report Verified by: CARLOS EDUARDO ROSS MD at 10/09/2017 12:11 PM EST US Duplex Ozm-Azo-Lgbvriu Comp Final Result IMPRESSION: Abdomen: Normal sonographic appearance of the transplant liver. Liver duplex: Mildly turbulent flow within the main portal vein. Normal directional flow with resistive indices as detailed above. Report Verified by: CARLOS EDUARDO ROSS MD at 10/09/2017 12:11 PM EST X-ray Portable Chest Final Result IMPRESSION: 1. Low lung volumes with minimal bibasilar atelectasis. 2. Support devices as described above. I have personally reviewed the images and I agree with this report. Report Verified by: ANDERSON GARRISON M.D. at 10/09/2017 6:43 AM EST X-ray Portable Chest Final Result IMPRESSION: 1. ET tube in appropriate position. 2. PA catheter overlies the main pulmonary artery. 3. No airspace consolidation. Approved by Anton Young on 10/08/2017 2:30 PM EST I have personally reviewed the images and I agree with this report. Report Verified by: Jack Vargas at 10/08/2017 2:36 PM EST X-ray Chest PA and Lateral Final Result IMPRESSION: No acute cardiopulmonary findings. Approved by Germán Santoyo on 10/08/2017 12:41 AM EST I have personally reviewed the images and I agree with this report. Report Verified by: ANDERSON GARRISON M.D. at 10/08/2017 1:03 AM EST KELLY LEMONS MD Neurology Department Pager #: [phone] 10/11/2017 Cosigned by Merari Melchor MD at 10/12/2017 9:52 AM EST Associated attestation - Merari Melchor MD - 10/12/2017 9:52 AM EST Neurology Attending note On this day I saw, examined, and was physically present for the duarte portions of the services provided. I agree with the resident's plan and notes except for those listed on my note. Patient seems to be improving, could mouth words today and follow all commands Merari Melchor * Tasha Norton, OT - 10/11/2017 10:48 AM EST Occupational Therapy Initial Assessment Name: Leoncio Rollins :1975 Attending Physician: Tami Richardson MD Admitting Diagnosis: S/P liver transplant (HCC) [Z94.4] Date: 10/11/2017 Room: [address] Course PT/OT: Pt is 42 y.o. 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 Intubated 09/18, extubated 10/09. Continued AMS, (-) MRI/Head CT. PMH: acute pancreatitis, ascites, DM, GERD, hepatic encephalopathy, HTN, SAL, vitamin D deficiency. Precautions: No limitations Activity Level: activity as tolerated Recommendations Recommend: Inpatient rehab AM-PAC 6 Clicks Daily Activity Inpatient Short Form: OT 6 Clicks Score: 11 Equipment recommendations: Defer Preadmission Environment Patient lives with other family and has 24 hour supervision and 24 hour assistance available at discharge. ?? Patient lives in a house. --3 steps to enter --no stairs inside of home --walk in shower ?? Patient has the following equipment: rollator and shower seat ?? Prior Level of Function/Occupational Profile Information per patient and patient's family: --Patient was using rollator for functional mobility. --Prior to hospital admission the patient needed assistance with nothing. --Patient received assistance from no one. Pain Patient denies pain. Pain interventions: none. Cognitive Status Patient is oriented to person and to place. Patient is alert, cooperative, distracted and confused. Patient is able to follow one-step commands and 75 % of the time. Pt slow to respond to questions and required increased repetition/clarification. ?? Cognition/Perception Functional Impaired Comments Memory x Decreased orientation/recall of events Problem Solving x Max cues to problem solve mobility tasks Judgment x Decreased safety awareness Insight x Decreased awareness of deficits/need for increased assistance Communication x Vision x Upper Extremity Function Patient's UE function is WFL Strength at least 3+/5 as noted through use during ADL's/mobility Hand Function Functional Impaired Comments Gross Grasp x Coordination x Muscle Tone: normal Sensation: Intact Motor Control: Intact Splints: none ADLs and Functional Mobility Bed Mobility: Maximal assistance and ( 2 person assistance ) supine>sit via log roll with max cues for body mechanics, Maximal assistance and ( 2 person assistance ) to return to supine from sitting at EOB Sit to stand: Maximal assistance and ( 2 person assistance ) from EOB up to RW ++ max verbal cues LE ADLs: Maximal assistance to don B socks Balance Static Sitting: Supervision Dynamic Sitting: Contact guard assistance Static Standing: Moderate assistance with RW ++ cues for upright Dynamic Standing: Moderate assistance and ( 2 person assistance ) with RW for lateral steps along EOB Positioning: Patient left in bed and with bed in chair position at end of session, nurse notified, B soft wrist restraint(s) re-applied, visitor(s) present and call light/ needs left within reach. Bed alarm unchanged from previous setting. Assessment Pt presents with impaired ADLs, balance, functional mobility, perception/cognition and activity tolerance. Pt will benefit from skilled OT services. Goals To be met in: 1 week Patient will complete supine to sit with moderate assistance Patient will complete sit to stand with moderate assistance Patient will complete chair transfer :will tolerate assessment Patient will complete LE ADLs with moderate assistance. Long-term goal: Patient will tolerate toilet transfers assessment (to be met in 2 weeks) Patient stated goals: to go home Rehabilitation Potential (for above goals): good Patients and/or caregivers as well as practitioners mutually agreed upon the above goals. Plan Pt to be seen a minimum of 3 time(s) per week to address above deficits with therapeutic exercise, functional mobility, ADL retraining, balance training, activity tolerance training, therapeutic activity and patient/family education. Patient/Family Education Educated patient and patient's family on the role of occupational therapy, OT goals, OT plan of care, discharge recommendation, ADL training, functional mobility training and the importance of safetyand fall prevention strategies including need for supervision/ assistance with OOB activity and useof call light. patient's family verbalized understanding, patient will need reinforcement. The plan of care assesses the patient's and/or caregiver's readiness, willingness, and ability to provide or support functional mobility and ADL tasks as needed upon discharge. Tasha HERNANDEZ OTR/L [facility] Pager: [phone] Office: [phone] Hours: M-F 7:30-4:00 Patient Class: Inpatient Time Start Time: 846 Stop Time: 20 Time Calculation (min): 33 min Charges $OT Evaluation High Complex 60 Min: 1 Procedure PMH: Past Medical History: Diagnosis Date ??? Acute pancreatitis ??? Ascites ??? Diabetes mellitus (HCC) ??? Esophageal varices with bleeding (HCC) ??? GERD (gastroesophageal reflux disease) ??? Hepatic encephalopathy (HCC) ??? Hypertension ??? 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 Vitamin D deficiency PSH: Past Surgical History: Procedure Laterality Date ??? LIVER TRANSPLANTATION N/A 10/08/2017 Procedure: TRANSPLANT LIVER; Surgeon: David Mendenhall MD; Location: [facility]; Service: Transplant; Laterality: N/A; ??? TIPS PROCEDURE 10/2016 ??? TIPS Revision 04/2017 * Genevieve Beltran PT - 10/11/2017 8:42 AM EST Inpatient Physical Therapy Initial Assessment Name: Leoncio Rollins :1975 Attending Physician: Tami Richardson MD Admitting Diagnosis: S/P liver transplant (HCC) [Z94.4] Date: 10/11/2017 Room: [place] [id number] [id number] Hospital Course PT/OT: Pt is 42 y.o. 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 Intubated 09/18, extubated 10/09. Continued AMS, (-) MRI/Head CT. PMH: acute pancreatitis, ascites, DM, GERD, hepatic encephalopathy, HTN, SAL, vitamin D deficiency. Precautions: No limitations Activity level: activity as tolerated Assessment: Patient presents with impairments including strength, ROM, balance, activity tolerance, bed mobility, transfers, gait, cognition and safety awareness. Leoncio tolerated the evaluation fair today. He was able to take lateral steps with RW and assist. Heis limited by decreased activity tolerance and cognition. Pt would benefit from further PT upon d/c; PT will f/u with pt and progress POC as appropriate. Recommendations: Recommend: inpatient rehab AM-PAC 6 Clicks Basic Mobility Inpatient Short Form: PT 6 Clicks Score: 10 Equipment recommendations: defer until further OOB assessment Mobility Recommendations for Staff: Patient is unsafe to perform out of bed activity unless a therapist is present Preadmission Environment: Patient lives with other family and has 24 hour supervision and 24 hour assistance available at discharge. Patient lives in a house. --3 steps to enter --no stairs inside of home --walk in shower Patient has the following equipment: rollator and shower seat Prior Level of Function: Information per patient and patient's family: --Patient was using rollator for functional mobility. --Prior to hospital admission the patient needed assistance with nothing. --Patient received assistance from no one. Present Cognitive Status: Patient is oriented to person and to place. Patient is distracted, lethargic, confused and lacking safety awareness. Patient is able to follow one-step commands and 40 % of the time. Pt slow to respond to questions and required increased repetition/clarification. Pain: Patient denies pain Pain interventions: none Vision/Perception: Grossly WFL Upper Extremity Function: Not tested- defer to OT Lower Extremity Function: Strength/ROM grossly WFL Sensation: normal Muscle Tone: normal Motor Control: normal Edema: BLEs Functional Mobility: Bed mobility = Patient transitions from supine to sit with maximal assistance and ( 2 person assistance ) Sit to stand = Patient transfers from sit to stand with maximal assistance and ( 2 person assistance ) Stand to sit = Patient transfers from stand to sit with maximal assistance and ( 2 person assistance ) Pt able to take ~4 lateral steps to the R with max A x2. Unable to attempt ambulation or bed>chair transfer safely secondary to patient distraction and difficulty following commands. Balance: Static sitting = performs with contact guard assistance Dynamic sitting = performs with contact guard assistance Static standing = performs with maximal assistance and ( 2 person assistance ) using rolling walker Dynamic standing = performs with maximal assistance and ( 2 person assistance ) using rolling walker Positioning: Patient left in bed at end of session, nurse notified and BUE restraint(s) re- applied. Bed alarm activated and not able to be interfaced (patient in ICU). Goals: To be met by: 10/18/2017 Bed mobility = Patient will transition from supine to sit with minimal assistance Sit to stand = Patient will transfer from sit to stand with minimal assistance Bed to chair = Patient will tolerate assessment Gait = Patient will tolerate assessment Long-term goal (to be met by 10/25/2017): Patient will transition from supine to sit with supervision Patient stated goals: Unable to state Rehabilitation Potential (for above goals): good Strengths: PLOF Barriers: cognition, AMS Above goals discussed with patient and family -- Yes. Patient/Family Education: Educated patient and patient's family on the role of physical therapy, goals, plan of care, importance of increased activity, discharge recommendations, transfer training and safety and need for supervision during OOB activity and fall prevention strategies, including use of call light; patient andpatient's family needed cues and will need reinforcement. Handout(s) issued: none. Plan: Patient to be seen at least 3 time(s) per week to address above deficits with therapeutic exercise,functional mobility, therapeutic activity, transfer training, gait training, stair training, balance training, patient/family education and equipment evaluation/education. The plan of care and recommendations assesses the patient's and/or caregiver's readiness, willingness, and ability to provide or support functional mobility and ADL tasks as needed upon discharge. Signed: JAY Monterroso Student Physical Therapist Pager: Office: [phone] Patient Class: Inpatient Start Time: 846 Stop Time: 921 Time Calculation (min): 35 min Units Rendered: $PT Evaluation High Complex 45 Min: 1 Procedure PMH: Past Medical History: Diagnosis Date ??? Acute pancreatitis ??? Ascites ??? Diabetes mellitus (HCC) ??? Esophageal varices with bleeding (HCC) ??? GERD (gastroesophageal reflux disease) ??? Hepatic encephalopathy (HCC) ??? Hypertension ??? 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 Vitamin D deficiency PSH: Past Surgical History: Procedure Laterality Date ??? LIVER TRANSPLANTATION N/A 10/08/2017 Procedure: TRANSPLANT LIVER; Surgeon: David Mendenhall MD; Location: OR; Service: Transplant; Laterality: N/A; ??? TIPS PROCEDURE 10/2016 ??? TIPS Revision 04/2017 Cosigned by Cecelia Brooks PT at 10/11/2017 11:21 AM EST Associated attestation - Cecelia Brooks PT - 10/11/2017 11:21 AM EST I have read and agree with the documentation provided below by the student physical therapist. Cecelia Brooks PT, DPT Physical Therapist Pager: Office: [phone] * Je Acevedo MD - 10/11/2017 6:49 AM EST Surgical ICU H&P / CONSULT 10/11/2017 6:49 AM Patient:Leoncio Rollins HPI: Leoncio Rollins is a 42 y.o. 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 He was previously following at , but decompensated in 09/2016 with massive variceal bleed and TIPS procedure. As a result, he was second listed at . His liver disease has been complicated by encephalopathy, it is being treated with xifaxan and lactulose. After Stites-viviana catheter was placed, Mr. Rollins was found to have pulmonary hypertension with BPs in the 40s. His transplant was otherwise uncomplicated, EBL 2800, and he received 5 units FFP, 2 units pRBC, 1 plt. Additionally he received 1250 of Cell Saver. 24h Events: -CAM + overnight -Very poor sleep -Hypertension -> mild troponin elevation, EKG unremarkable, started on esmolol gtt, target SBP 160 -Echo Plan: Wean esmolol as tolerated OOB BID PT/OT DAIRY TESTER eval Daily CXR PO metoprolol up to 37.5 PM CBC Melatonin PRN Scheduled Meds: ??? aspirin 81 mg Oral Daily with breakfast ??? entecavir 0.5 mg Oral DAILY 0600 ??? gabapentin 100 mg Oral TID ??? heparin (porcine) 5,000 Units Subcutaneous 3 times per day ??? methylPREDNISolone sod suc(PF) 60 mg Intravenous Once Followed by ??? [START ON 10/12/2017] methylPREDNISolone sod suc(PF) 50 mg Intravenous Once Followed by ??? [START ON 10/13/2017] predniSONE 40 mg Oral Once Followed by ??? [START ON 10/14/2017] predniSONE 30 mg Oral Once Followed by ??? [START ON 10/15/2017] predniSONE 25 mg Oral Once Followed by ??? [START ON 10/16/2017] predniSONE 20 mg Oral Daily 0900 ??? metoprolol tartrate 25 mg Oral TID ??? mycophenolate (CELLCEPT) IVPB 500 mg Intravenous BID ??? pantoprazole 40 mg Intravenous DAILY 0600 ??? Pharmacy to Discontinue all previous insulin and antidiabetic medications MISCELLANEOUS Once ??? valGANciclovir 450 mg Oral Daily 0900 Continuous Infusions: ??? esmolol (BREVIBLOC) 20 mg/mL 80 mcg/kg/min (10/11/17 0627) ??? insulin (HumuLIN R) infusion 5.5 Units/hr (10/11/17 0106) ??? sodium chloride 0.9 % 75 mL/hr (10/11/17 0611) PRN Meds:.All IV Medications in Normal Saline 0.9%, dextrose 50 % in water (D50W), fentaNYL, glucose, hydrALAZINE, insulin (HumuLIN R) infusion AND INSULIN INFUSION PROTOCOL (NOT FOR DKA OR HHS),labetalol Allergies Allergen Reactions ??? Codeine ??? Dilaudid [Hydromorphone] Other (See Comments) Hallucinations ??? Flexeril [Cyclobenzaprine] Social History Substance Use Topics ??? Smoking status: Never Smoker ??? Smokeless tobacco: Never Used ??? Alcohol use No Family History Problem Relation Age of Onset ??? Diabetes Sister REVIEW OF SYSTEMS: Pertinent items are noted in HPI. PHYSICAL EXAM: CONSTITUTIONAL: General: NAD Temp (24hrs), Av.7 ??F (37.1 ??C), Min:98.1 ??F (36.7 ??C), Max:100.3 ??F (37.9 ??C) BP (!) 164/94 Pulse 78 Temp 98.2 ??F (36.8 ??C) (Oral) Resp 14 Ht 5' 7 (1.702 m) Wt (!) 278 lb 14.1 oz (126.5 kg) SpO2 100% BMI 43.68 kg/m?? HEENT: Exam: conjuctiva, lids normal, scleral icterus and pupils equal A/P:No acute issues RESPIRATORY: Exam: effort normal and clear to auscultation bilaterally Respiratory Support: Vent Setting: No data found. Lab 10/09/17 1533 PH ARTERIAL 7.41 PCO2 ARTERIAL 34* PO2 ARTERIAL 123* HCO3 ARTERIAL 21* BASE EXCESS ARTERIAL -2.9* Total RSBI: 6 (10/09/17 0829) A/P: Hypoxia: -on 1L NC -pulm toilet -Worsened R lung consolidation -Possible effusion vs edema - Continue to trend CXR - Lasix 60 today CARDIOVASCULAR: Exam: auscultation normal, rhythm and rate normal and pulses equal bilaterally Troponin: Lab 10/10/17 0632 TROPONIN I 0.15* Hemodynamics: No data found. A/P: NSR on monitor Hypertension Goal SBP 160 121-164/66-94 ASA Home Meds Held: Losartan 50 mg daily Coreg 25mg BID esmolol gtt - 80mcg/kg/min - Wean as tolerated Lasix today Increase Metoprolol to 37.5 Troponin Elevation: -possibly related to hypertension -EKG unchanged -will trend, control HTN with esmolol gtt, will get echo today -0.16 -> 0.15 - ECHO yesterday - EF 55-60% - No wall motion abnormalities - RV Dilation - RA Dilation - pHTN at least 42 - No valvular disfunction NUTRITION: TF:Diabetasource goal 75, advance to goal today TPN rate:N/A A/P: Diabetic diet Cleared for small swallows Repeat DAIRY TESTER eval today GASTROINTESTINAL: Exam: no masses or tenderness, soft, obese, no rebound and no guarding Hepatic Profile: Lab 10/11/17 0423 ALK PHOS 46 ALT 297* AST 71* BILIRUBIN TOTAL 1.0 ALBUMIN 2.4* 2.4* BILIRUBIN DIRECT 0.41* TOTAL PROTEIN 4.4* A/P: ESLD 2/2 SAL - Right Hepatic artery reconstruction - ASA - S/P OLT 10/08/2017 - LFTs and bilis downtrending AST 71 (179) ALT 297 (376) Tbili 1.0 (1.0) D Bili 0.41 (0.45) - Donor serology - HBcAb+ - HBV ALEXANDRA + - HCVAb+ - HCV ALEXANDRA- - Valcyte - Bactrim - Mycostatin Hepatic Encephalopathy - Holding Lactulose, Rifaximin - Continue to trend mental status - Ammonia 91 GERD - Protonix History of esophageal varices with bleeding - - S/P TIPS Ascites - Mild - S/P OLT 10/08/2017 History of acute pancreatitis - No present symptoms - Will monitor FLUIDS/ELECTROLYTES: IVFluids: NS 75/hr Labs: Lab 10/11/17 0423 SODIUM 142 POTASSIUM 4.1 CHLORIDE 112* CO2 23 BUN 50* CREATININE 1.69* GLUCOSE 148* CALCIUM 8.0* MAGNESIUM 2.3 PHOSPHORUS 4.2 Date 10/10/17 07 - 10/11/17 0659 10/11/17 07 - 10/12/17 0659 Shift 1569-3092 8007-8359 9524-2653 24 Hour Total 5645-3474 5965-6083 7934-6281 24 Hour Total I N T A K E P.O. 100 100 P.O. 100 100 I.V. (mL/kg) 1017 (8.2) 782.4 (6.3) 1020.3 (8.1) 2819.7 (22.3) Volume (mL) Insulin 33 52.4 54.3 139.7 Volume (mL) Esmolol 191 236 207 634 Volume (mL) Pantoprazole 10 10 Volume (mL) (electrolyte-R (pH 7.4) (NORMOSOL-R pH 7.4) iv solution SolP) 799 401 880 259 1405 NG/GT 82 161 243 Intake (mL) (Feeding Tube Nasogastric Nares) 82 161 243 IV Piggyback 50 50 100 Volume (mL) (mycophenolate (CELLCEPT) 500 mg in dextrose 5% in water (D5W) 50 mL IVPB) 50 50 100 Shift Total (mL/kg) 1167 (9.4) 914.4 (7.4) 1181.3 (9.3) 3262.7 (25.8) O U T P U T Urine (mL/kg/hr) 360 (0.4) 320 (0.3) 450 1130 Output (mL) ([REMOVED] IUC (Anders) Straight-tip 16 Fr.) 360 449 866 2015 Drains 80 130 110 320 Output (mL) (Drain 2 Liver Abdomen Right) 80 130 110 320 Shift Total (mL/kg) 440 (3.6) 450 (3.6) 560 (4.4) 1450 (11.5) Weight (kg) 123.8 123.8 126.5 126.5 126.5 126.5 126.5 126.5 I/O: 3.3/1.4 UOP: 1070 (715) Drain 1: Removed Drain 2: 320 (340) A/P: Will monitor electrolytes - Hypocalcemia, continue to trend RENAL: A/P: CARMEN on CKD - Cr 1.69 (2.22) - Marginal UOP during case, 25-40/hr overnight - UOP Improving today - Baseline Cr 1.39-1.4 - Baseline BUN 18-20 SKIN/MUSCULOSKELETAL: Exam: inspection normal, pitting edema and moves all extremities well A/P: Vitamin D deficiency Will supplement when taking PO HEMATOLOGIC: Labs: Lab 10/11/17 0423 WBC 9.0 HEMOGLOBIN 8.8* HEMATOCRIT 24.9* PLATELETS 38* Lab 10/10/17 1253 INR 1.3* Lab 10/08/17 1353 FIBRINOGEN LEVEL 192* Lab 10/10/17 0158 TEG ANGLE 73.0 TEG K TIME 135.0 TEG LYSIS 30 0.0 TEG MAX AMPLITUDE 51.5* TEG RTIME 35.0 A/P: Acute blood loss anemia: HGB 8.8 (Stable 8.8) Will transfuse for <7 Leukocytosis: - Resolved 9.0 (Peak 14.9) Thrombocytopenia: - 38 (Downtrending 92->63->46->38) - ANA MARIA score 4, Will discuss Sending HIT Panel - Repeat afternoon CBC Coagulopathy - Resolved Likely 2/2 blood loss Elevated INR intraop (2.2) INR 1.3 now Will continue to trend TEG normalized ENDOCRINE: FSBS range: Lab 10/11/17 0419 10/11/17 0205 10/11/17 0105 10/11/17 0004 10/10/17 2304 10/10/17 2159 10/10/17 2100 10/10/172001 POC GLU MONITORING DEVICE 152* 144* 154* 180* 179* 181* 186* 191* Lab 10/08/17 1232 10/08/17 1138 10/08/17 1109 10/08/17 1004 10/08/17 0903 POCGLUART 225* 218* 167* 178* 176* Insulin regimen:Insulin GTT A/P: 139 (176) Units past 24 hours Insulin dependent DMII INFECTIOUS DISEASE: Culture date: N/A Culture result: N/A Lab Results Component Value Date COLORU Yellow 10/10/2017 CLARITYU Clear 10/10/2017 PROTEINUA 100 (A) 10/10/2017 PHUR 5.0 10/10/2017 LABSPEC 1.028 10/10/2017 GLUCOSEU Negative 10/10/2017 BLOODU Small (A) 10/10/2017 LEUKOCYTESUR Negative 10/10/2017 NITRITE Negative 10/10/2017 BILIRUBINUR Negative 10/10/2017 UROBILINOGEN <2.0 10/10/2017 Lab Results Component Value Date ISO1 No Growth To Date 10/10/2017 ISO1 No Growth To Date 10/10/2017 No results found for: AEROBOT, ANABOT, LABGRAM, ISO2, ISO3, ISO4, ISO5, ISO6, PNAFISH Antibiotics (day):N/A A/P: Prophylaxis per primary CMV IGG - EBV IGG + Mumps IGG + Rubella - Rubeola - VZV IGG + Hep A IGG + Hep B Surface AB + Core - HCV - TB - Toxoplasma - HIV - Treponema - Organ ALEXANDRA HBV + NEUROLOGIC: Exam: Awake, follows commands, strength intact all 4 extremities Eye Openin, Best Verbal Response: 4,Best Motor Response: 6 Benld Coma Scale Score: 14 No data found. EEG: N/A EVD: N/A TCDs:N/A ICP Management: N/A A/P: AMS: -unclear cause, head CT negative -ammonia 91 -MRI - Motion artifact - Questionable hyperdense T2 in periventricular white matter, likely chronic PSYCHIATRIC: Exam: sedated Sifuentes Agitation Sedation Scale: 0 Overall CAM-ICU : Delirium Present A/P: Pain -prn fentanyl Insomnia: - Will add Melatonin PRN QHS Order GI ASST Patient Lines/Drains/Airways Status Active Epidural Line / PICC Line / PIV Line / ART Line / Line / CVC Line Name: Placement date: Placement time: Site: Days: Peripheral IV 10/08/17 Left 10/08/17 3 Arterial Line Right Radial Radial Introducer 10/08/17 10/08/17 0953 2 Anders: Yes If yes: Strict I/O EVD: No A/P: Continue current lines INJURY/DISEASE SPECIFIC NEEDS: DVT Prophylaxis: SCDs, SQH GI Prophylaxis: Protonix ??? aspirin 81 mg Oral Daily with breakfast ??? entecavir 0.5 mg Oral DAILY 0600 ??? gabapentin 100 mg Oral TID ??? heparin (porcine) 5,000 Units Subcutaneous 3 times per day ??? [START ON 10/12/2017] methylPREDNISolone sod suc(PF) 50 mg Intravenous Once Followed by ??? [START ON 10/13/2017] predniSONE 40 mg Oral Once Followed by ??? [START ON 10/14/2017] predniSONE 30 mg Oral Once Followed by ??? [START ON 10/15/2017] predniSONE 25 mg Oral Once Followed by ??? [START ON 10/16/2017] predniSONE 20 mg Oral Daily 0900 ??? metoprolol tartrate 25 mg Oral TID ??? mycophenolate (CELLCEPT) IVPB 500 mg Intravenous BID ? ? nystatin 500,000 Units Swish & Swallow TID ??? pantoprazole 40 mg Intravenous DAILY 0600 ??? Pharmacy to Discontinue all previous insulin and antidiabetic medications MISCELLANEOUS Once ??? sulfamethoxazole-trimethoprim 1 tablet Oral Daily 0900 ??? [START ON 10/12/2017] valGANciclovir 900 mg Oral Daily 0900 ??? esmolol (BREVIBLOC) 20 mg/mL 80 mcg/kg/min (10/11/17 0627) ??? insulin (HumuLIN R) infusion 5.5 Units/hr (10/11/17 0106) ??? sodium chloride 0.9 % 75 mL/hr (10/11/17 0611) JE ACEVEDO 10/11/2017 6:49 AM Cosigned by Judi Carter MD at 10/11/2017 8:19 PM EST Associated attestation - Judi Carter MD - 10/11/2017 8:19 PM EST ICU ATTENDING PROGRESS NOTE Leoncio Rollins was seen by the resident team, nurses, pharmacist and respiratory therapists of the multidisciplinary critical care team on 10/11/2017. I have personally seen and examined this patient today (10/11/2017 ) and reviewed the events of the previous 24 hours with the multidisciplinary critical care team and the case has been discussed with the Transplant team. I note the following in my assessment and will implement this plan of coordinated critical care management as follows: 42 yo M with HTN, DM-II, hyperlipidemia, and ESLD from SAL (encephalopathy, varices, MELD 25) and emergent TIPS () who underwent OLT on 10-07-2017. Intraoperative mean PA pressures initially 40s, PAS 60s. Otherwise uneventful transplant I note the following events over the last 24 hours, with the assessment and implementation of coordinated critical care management as below: MRI with no acute findings. CAM positive. Still hypertensive on esmolol gtt. HEENT: No acute issues. RESPIRATORY: Atelectasis/pulmonary collapse Hypoxia Respiratory failure, acute WITH trauma or surgery Extubated 10-09 successfully - Continue IS, pulm toileting. EZPAP. CXR with edema - primary team dosed lasix - continue to wean O2. CARDIOVASCULAR: Hypertension, essential benign pulm hypertension Hyperlipidemia - Tachycardia Home meds coreg 25BID and losartan 50 daily - Esmolol at 80mg - increase metoprolol 37.5mg TID and wean gtt. May need to increase to 50mg NUTRITION: No acute issues - NPO pending speech; increasing TFs. GASTROINTESTINAL: Cirrhosis, not secondary to alcohol s/p OLT - LFTs improving. continue ASA for reconstructed hepatic artery. Duplex with normal RIs. Continue entecavir GERD - on home ppi - continue given immunosuppressives. FLUIDS / ELECTROLYTES: NS at 75 Hypomagnesemia - supplement per protocol RENAL: CKD - baseline cr 1.4 Up to 2.2 today. UOP 882. Keep anders. Normosol @100ml/hr SKIN/MUSCULOSKELETAL No acute issues. HEMATOLOGIC: Coagulopathy, unspecified - resolved. Thrombocytopenia - platelets dropping, currently 38 (from 46); HIT score 4 (intermediate probability) - will monitor. Acute hemorrhagic anemia - hgb 9.7. Will monitor today - does not appear to be bleeding. ENDOCRINE: DM, type II, controlled - on insulin gtt - continue -worsened with steroids. Holding oral hypoglycemics. HbA1C 5.4 as outpatient. txp immunosuppression - steroids, cellcept INFECTIOUS DISEASE: hepatitis B - will need entecavir txp prophylaxis - nystatin, valcyte. NEUROLOGIC: Altered Mental Status - after extubation with new aphasia and difficulty FCs. CT/MRI negative. Neurology consulted. Sl improved today. PSYCHIATRIC, PAIN, SEDATION: Pain Management - PRN fentanyl. Delirium - Will add melatonin PRN qhs given poor sleep last night, CAM+ last night, but do not wantto oversedate INJURY / DISEASE SPECIFIC NEEDS: No acute issues DVT Prophylaxis: Subcutaneous Heparin - GI Prophylaxis: ppi ACTIVE LINES: Patient Lines/Drains/Airways Status Active Epidural Line / PICC Line / PIV Line / ART Line / Line / CVC Line Name: Placement date: Placement time: Site: Days: Peripheral IV 10/08/17 Left 10/08/17 1 Arterial Line Right Radial Radial Introducer 10/08/17 10/08/17 0953 less than 1 Will need to wire line tomorrow ACTIVE DRAINS: Urinary Catheter? Anders - Reason: Adequate I/O DISPOSITION: Remain in ICU Total critical care time spent caring for this patient over the past 24 hours, including direct patient contact, management of life support systems review of data (i.e.: imaging and lab), discussion with team members, and excluding time spent on procedures: 35 minutes This note documents care provided on 10/11/2017. Judi Carter MD [employer] Division of Trauma and Critical Care [facility] Academic Office [phone] Pager: [phone] 10/10/2017 6:24 AM * Margoth Taylor - 10/11/2017 6:48 AM EST 10/11/17 0600 24 HR Nutrition Analysis Totals 24 HR Total Calories (kcals) 0 kcals 24 Hr Total Protein (g) 0 g no meal tickets saved for 10/10/17 Margoth CRAFT, LD Pager # [phone] * Jcoeline Maxwell MD - 10/11/2017 5:46 AM EST Surgery progress note Subjective Remains on esmolol gtt, insulin gt. Mental status improved -- delayed responses but answers orientation questions correctly Objective Vitals BP 158/90 Pulse 81 Temp 98.2 ??F (36.8 ??C) (Oral) Resp 14 Ht 5' 7 (1.702 m) Wt (!) 278 lb 14.1 oz (126.5 kg) SpO2 99% BMI 43.68 kg/m?? Intake/output Intake/Output Summary (Last 24 hours) at 10/11/17 0546 Last data filed at 10/11/17 0400 Gross per 24 hour Intake 3339.1 ml Output 1310 ml Net 2029.1 ml Physical Exam Gen: NAD Neuro: improved mental status, answers questions CV: RRR Resp: nonlabored, CTAB Abd: soft, approp TTP, incision c/d/i, mine x 1 serosang Ext: WWPx4, SCDs Skin: warm and dry Assessment Leoncio Rollins is a 42 y.o. male with SAL cirrhosis, OLT (10/08) Plan - esmolol gtt - wean - lateral MINE drain removed 10/10 - MRI 10/10 with no abnormal findings - LFTs normalizing - CARMEN/ATN with oliguria resolving - wean insulin gtt - swallow eval - DC anders - OOB to chair, PT/OT JOCELINE MAXWELL MD [id number] 10/11/2017 5:46 AM Cosigned by David Mendenhall MD at 10/11/2017 10:48 AM EST Associated attestation - David Mendenhall MD - 10/11/2017 10:48 AM EST Immunosuppression reviewed. Ambulate, OOB 3x a day. Encourage nutrition, monitor PO intake. Continue to stress education and teaching of daily activities, medications and post-surgical issues. I have seen and examined the patient and agree with the plan. All points of care were reviewed in amultidisciplinary fashion with the housestaff and teams involved. * Adonis Brambila, PharmD - 10/10/2017 3:12 PM EST Medication Reconciliation [facility] Department of Pharmacy Services Information obtained from: Pharmacy: [facility] Phone number: [phone] Address: [place], [place] Allergies Allergen Reactions ??? Codeine ??? Dilaudid [Hydromorphone] Other (See Comments) Hallucinations ??? Flexeril [Cyclobenzaprine] Medications: Prior to Admission medications taking for visit date 10/07/17 Medication Sig Taking? Authorizing Provider buprenorphine (BUTRANS) 5 mcg/hour PTWK Place 5 mcg/hr onto the skin every 7 days. Indications: last filled 08/18/17 Yes Historical Provider, carvedilol (COREG) 25 MG tablet Take 25 mg by mouth 2 times a day with meals. Yes Historical Provider, cloNIDine HCl (CATAPRES) 0.1 MG tablet Take 0.1 mg by mouth 2 times a day. Yes Historical Provider, ergocalciferol (ERGOCALCIFEROL) 50,000 unit capsule Take 50,000 Units by mouth once a week. Yes Historical Provider, esomeprazole (NEXIUM) 40 MG capsule Take 40 mg by mouth every morning before breakfast. Yes Historical Provider, gabapentin (NEURONTIN) 600 MG tablet Take 600 mg by mouth 3 times a day. Yes Historical Provider, glimepiride (AMARYL) 1 MG tablet Take 1 mg by mouth before breakfast. Yes Historical Provider, hydrALAZINE (APRESOLINE) 10 MG tablet Take 10 mg by mouth every 12 hours. Yes Historical Provider, insulin glargine (BASAGLAR KWIKPEN) 100 unit/mL (3 mL) InPn Inject 45 Units subcutaneously at bedtime. Yes Historical Provider, lactulose (CHRONULAC) 10 gram/15 mL solution Take 20 g by mouth 3 times a day. Indications: HepaticEncephalopathy Yes Historical Provider, losartan (COZAAR) 50 MG tablet Take 50 mg by mouth daily. Yes Historical Provider, metFORMIN (GLUCOPHAGE) 500 MG tablet Take 1,000 mg by mouth 2 times a day with meals. Yes Historical Provider, rifAXIMin (XIFAXAN) 550 mg Tab tablet Take 550 mg by mouth 2 times a day. Yes Historical Provider, zinc sulfate (ZINCATE) 220 (50) mg capsule Take 1 capsule (220 mg total) by mouth 2 times a day. Yes Micha Diaz MD To my knowledge the above medication reconciliation is accurate as of 10/10/2017. Please contact with questions and/or concerns. ADONIS BRAMBILA, Pharm.D. 10/10/2017 3:12 PM * Madelyn Kwok RD - 10/10/2017 3:06 PM EST Brief nutrition note: Pt is s/p extubation and now with AMS. S/p swallow eval with DAIRY TESTER today who recommended regular dietwith thin liquids. Due to AMS feeding tube placed for initiation of EN for optimal nutrition support at this time. Estimated Nutrition Needs: Needs based On: IBW 69.5kg Kcals/day: (30kcal/kg) 2085kcals Protein g/day: (1.5-2.0g/kg)104-139g Carbohydrate g/day: (45% of kcals) 235g Fluid ml/day: 1ml/kcal or as per MD ?? Recommendations: 1. Consider Diabetisource @ 20ml/hr increasing by 20ml q12h until goal of 75ml/hr is reached (2160kcals, 108g protein, 180g CHO and 1470ml free water) 2. Additional free water flushes as per MD 3. Will monitor TF tolerance and adjust feed as neecessary 4. Initiate consistent carbohydrate 1900-2100kcal diet + Boost glucose control TID 5. Initiate calorie counts and monitor PO intake closely Madelyn Kwok RD, Pager#[phone] * DYLAN Grover - 10/10/2017 10:08 AM EST Speech Language Pathology Clinical Swallow Assessment Name: Leoncio Rollins : 1975 Attending Physician: Tami Richardson MD Admission Diagnosis: S/P liver transplant (HCC) [Z94.4] Date: 10/10/2017 Reviewed Pertinent hospital course: Yes Hospital Course DAIRY TESTER: 42 y.o. male with ESLD w/ cirrhosis 2/2 SAL, HTN, IDDM, GERD, and obesity s/pOLT on 10/08. Intubated 10/08-10/09. +Encephalopathy. CXR 10/08: Low lung volumes with minimal bibasilar atelectasis. No previous DAIRY TESTER. Assessment: Patient presents with oropharyngeal dysphagia secondary to delayed swallow initiation, complicated by impaired cognition and weak cough resulting in signs and symptoms of penetration/aspiration x1 with thin when used as a liquid wash of a large hard bolus. No further s/s with thin; no s/s with puree, soft solids, or small hard solid boluses. Patient is at an increased risk of aspiration. Plan: 1. DAIRY TESTER therapy 1-3x/week while inpatient 2. DAIRY TESTER at discharge is not anticipated 3. Diet Recommended: regular diet with thin, assist for small sips/bites Orientation: Person: Yes Place: Inconsistent Pain: Pain Score: 0-No pain Aspiration Risk Compensatory Swallowing Strategies: Upright as possible for all oral intake, One to one assist withmeals, Small bites/sips Diet Solids Recommendation: Regular Diet Liquids Recommendations: No Liquid Consistency Restrictions Recommended Form of Meds: Whole Goals Short-Term Goals: Patient will demonstrate safe swallowing behaviors: with 90% accuracy with min cues. Patient and/or caregiver will demonstrate ability to prepare food and liquid consistencies at 100% accuracy: independently. Patient and/or caregiver will demonstrate understanding of clinical signs and symptoms of aspiration at 100% accuracy: independently. Patient and/or caregiver will demonstrate understanding of risks associated with aspiration at 100%accuracy: independently. Time frame for goal to be met in: 10/19/17 Long-Term Goal: Patient will tolerate least restrictive diet with no signs or symptoms of aspiration at 100% accuracy: independently. Time frame for goal to be met in: 10/26/17 Baseline Assessment History of Intubation: Yes Length of Intubations (days): 2 days Date extubated: 10/09/17 Behavior/Cognition: Alert;Cooperative;Confused Dentition: Adequate;Some missing teeth Vision: Functional for self-feeding Patient Positioning: Upright in bed Volitional Cough: Weak Respiratory Status Respiratory Status: O2 via nasual cannula Oral/Motor Labial ROM: Within Functional Limits Labial Symmetry: Within Functional Limits Labial Strength: Within Functional Limits Lingual ROM: Within Functional Limits Lingual Symmetry: Within Functional Limits Lingual Strength: Within Functional Limits Facial ROM: Within Functional Limits Facial Symmetry: Within Functional Limits Facial Strength: Within Functional Limits Velum: Within Functional Limits Mandible: Within Functional Limits Baseline Vocal Quality: Normal (vocalizes Ah x1 throughout session) Vocal Intensity: Within Functional Limits Intelligibility: Unable to assess Dysarthria : None Breath Support: Adequate for speech Dentition: Adequate;Some missing teeth Hearing Exceptions: None Consistencies Assessed Thin;Puree;Hard Solid;Soft Solid Thin 1-6, 15, 16, 18, 20-23 Presentation: Straw Oral: Within functional limits Pharyngeal: Cough - delayed (as liquid wash of large hard solid bolus) Puree 7-11 Presentation: Spoon Oral: Within functional limits Pharyngeal: Within functional limits Soft Solid 12-14 Presentation: Spoon Oral: Within functional limits Pharyngeal: Within functional limits Solid 17, 19 Presentation: Spoon Oral: Within functional limits Pharyngeal: (suspect pharyngeal residue 2/2 cough with thin liquid wash) Education: Patient educated on role of DAIRY TESTER, current POC, and discharge recommendations for DAIRY TESTER therapy. Patient educated on swallowing anatomy & physiology, dysphagia, risks of aspiration, current diet recommendations, and safe swallowing behaviors. Patient was unable to demonstrate understanding. Pt's family demos understanding. Shiloh Horton MA [facility]-DAIRY TESTER Speech-Language Pathologist [facility] Certified Clinician Pager: [phone] Office: [phone] Hours: M-F [phone] Weekend Pager: [phone] (10 AM - 2 PM) Time Start Time: 0945 Stop Time: 1000 Time Calculation (min): 15 min Charges $Clinical Swallow: 1 Procedure Patient Class Inpatient * Bo Frias MD - 10/10/2017 5:33 AM EST Surgery progress note Subjective Alert but not oriented this morning. Not responding to commands but regards. Started esmo gtt. Objective Vitals BP 151/90 Pulse 119 Temp 100.5 ??F (38.1 ??C) (Oral) Resp 16 Ht 5' 7 (1.702 m) Wt (!) 273 lb 9.5 oz (124.1 kg) SpO2 93% BMI 42.85 kg/m?? Intake/output Intake/Output Summary (Last 24 hours) at 10/10/17 0533 Last data filed at 10/10/17 0500 Gross per 24 hour Intake 2128 ml Output 935 ml Net 1193 ml Physical Exam Gen: NAD, A+Ox3 CV: tachy/hypertensive Resp: nonlabored, CTAB Abd: soft, approp TTP, dressing clean, mine x 2 serosang Ext: WWPx4, SCDs Assessment Leoncio Rollins is a 42 y.o. 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 Plan - trend troponins - ECHO today - remove lateral MINE drain - HCT normal, check MRI - LFTs normalizing - CARMEN/ATN with oliguria resolving - wean insulin gtt Bo Frias MD Surgery Resident Pager: [phone] 10/10/2017 5:33 AM Cosigned by David Mendenhall MD at 10/10/2017 7:46 PM EST Associated attestation - David Mendenhall MD - 10/10/2017 7:46 PM EST Immunosuppression reviewed. Ambulate, OOB 3x a day. Encourage nutrition, monitor PO intake. Continue to stress education and teaching of daily activities, medications and post-surgical issues. I have seen and examined the patient and agree with the plan. All points of care were reviewed in amultidisciplinary fashion with the housestaff and teams involved. * Ivett Banerjee MD - 10/10/2017 5:06 AM EST Surgical ICU H&P / CONSULT 10/10/2017 4:44 AM Patient:Leoncio Rollins HPI: Leoncio Rollins is a 42 y.o. 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 He was previously following at , but decompensated in 09/2016 with massive variceal bleed and TIPS procedure. As a result, he was second listed at . His liver disease has been complicated by encephalopathy, it is being treated with xifaxan and lactulose. After Stites-viviana catheter was placed, Mr. Rollins was found to have pulmonary hypertension with BPs in the 40s. His transplant was otherwise uncomplicated, EBL 2800, and he received 5 units FFP, 2 units pRBC, 1 plt. Additionally he received 1250 of Cell Saver. 24h Events: -AMS after extubation-> CT head negative -Hypertension -> mild troponin elevation, EKG unremarkable, started on esmolol gtt, target SBP 160 -pulled Stites and one MAC Past Medical History: Diagnosis Date ??? Acute pancreatitis ??? Ascites ??? Diabetes mellitus (HCC) ??? Esophageal varices with bleeding (HCC) ??? GERD (gastroesophageal reflux disease) ??? Hepatic encephalopathy (HCC) ??? Hypertension ??? 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 Vitamin D deficiency Past Surgical History: Procedure Laterality Date ??? LIVER TRANSPLANTATION N/A 10/08/2017 Procedure: TRANSPLANT LIVER; Surgeon: David Mendenhall MD; Location: [facility]; Service: Transplant; Laterality: N/A; ??? TIPS PROCEDURE 10/2016 ??? TIPS Revision 04/2017 Prescriptions Prior to Admission Medication Sig Dispense Refill Last Dose ??? carvedilol (COREG) 25 MG tablet Take 25 mg by mouth 2 times a day with meals. Taking ??? ergocalciferol (ERGOCALCIFEROL) 50,000 unit capsule Take 50,000 Units by mouth once a week. Taking ??? esomeprazole (NEXIUM) 40 MG capsule Take 40 mg by mouth every morning before breakfast. Taking ??? gabapentin (NEURONTIN) 600 MG tablet Take 600 mg by mouth 3 times a day. Taking ??? glimepiride (AMARYL) 1 MG tablet Take 1 mg by mouth before breakfast. Taking ??? insulin glargine (BASAGLAR KWIKPEN) 100 unit/mL (3 mL) InPn Inject 40 Units subcutaneously at bedtime. Taking ??? insulin glulisine (APIDRA SOLOSTAR) 100 unit/mL InPn Inject subcutaneously. Taking ??? lactulose (CHRONULAC) 10 gram/15 mL solution Take 20 g by mouth 3 times a day. Indications: Hepatic Encephalopathy Taking ??? losartan (COZAAR) 50 MG tablet Take 50 mg by mouth daily. Taking ??? metFORMIN ER (GLUMETZA) 1000 MG (MOD) 24 hr tablet Take 1,000 mg by mouth 2 times a day with meals. Taking ??? rifAXIMin (XIFAXAN) 550 mg Tab tablet Take 550 mg by mouth 2 times a day. Taking ??? tiZANidine (ZANAFLEX) 4 MG capsule Take 0.5 mg by mouth at bedtime as needed for Muscle spasms.Taking ??? zinc sulfate (ZINCATE) 220 (50) mg capsule Take 1 capsule (220 mg total) by mouth 2 times a day. 60 capsule 3 Scheduled Meds: ??? thymoglobulin/heparin/hydrocortisone in sodium chloride 0.9% 1.5 mg/kg Intravenous Once ??? aspirin 81 mg Oral Daily with breakfast ??? entecavir 0.5 mg Oral DAILY 0600 ??? gabapentin 100 mg Oral TID ??? heparin (porcine) 5,000 Units Subcutaneous 3 times per day ??? methylPREDNISolone sod suc(PF) 125 mg Intravenous Once Followed by ??? [START ON 10/11/2017] methylPREDNISolone sod suc(PF) 60 mg Intravenous Once Followed by ??? [START ON 10/12/2017] methylPREDNISolone sod suc(PF) 50 mg Intravenous Once Followed by ??? [START ON 10/13/2017] predniSONE 40 mg Oral Once Followed by ??? [START ON 10/14/2017] predniSONE 30 mg Oral Once Followed by ??? [START ON 10/15/2017] predniSONE 25 mg Oral Once Followed by ??? [START ON 10/16/2017] predniSONE 20 mg Oral Daily 0900 ??? metoprolol tartrate 10 mg Intravenous Q6H ??? mycophenolate (CELLCEPT) IVPB 500 mg Intravenous BID ? ? nystatin 500,000 Units Swish & Swallow TID ??? pantoprazole 40 mg Intravenous DAILY 0600 ??? Pharmacy to Discontinue all previous insulin and antidiabetic medications MISCELLANEOUS Once Continuous Infusions: ??? electrolyte 100 mL/hr (10/09/172219) ??? insulin (HumuLIN R) infusion 7 Units/hr (10/09/171943) ??? morphine (PF) GI ASST ??? sodium chloride 20 mL/hr (10/09/17923) ??? sodium chloride 20 mL/hr (10/09/171731) PRN Meds:.All IV Medications in Normal Saline 0.9%, dextrose 50 % in water (D50W), glucose, hydrALAZINE, insulin (HumuLIN R) infusion AND INSULIN INFUSION PROTOCOL (NOT FOR DKA OR HHS), labetalol, nalbuphine, naloxone, ondansetron Allergies Allergen Reactions ??? Codeine ??? Dilaudid [Hydromorphone] Other (See Comments) Hallucinations ??? Flexeril [Cyclobenzaprine] Social History Substance Use Topics ??? Smoking status: Never Smoker ??? Smokeless tobacco: Never Used ??? Alcohol use No Family History Problem Relation Age of Onset ??? Diabetes Sister REVIEW OF SYSTEMS: Pertinent items are noted in HPI. PHYSICAL EXAM: CONSTITUTIONAL: General: NAD Temp (24hrs), Av.8 ??F (37.7 ??C), Min:99.1 ??F (37.3 ??C), Max:100.5 ??F (38.1 ??C) BP 144/84 (BP Location: Left arm, Patient Position: Lying) Pulse 111 Temp 100.5 ??F (38.1 ??C) (Oral) Resp 16 Ht 5' 7 (1.702 m) Wt (!) 256 lb (116.1 kg) SpO2 93% BMI 40.10 kg/m?? HEENT: Exam: conjuctiva, lids normal, scleral icterus and pupils equal A/P:No acute issues RESPIRATORY: Exam: effort normal and clear to auscultation bilaterally Respiratory Support: Vent Setting: No data found. Lab 10/09/17 1533 PH ARTERIAL 7.41 PCO2 ARTERIAL 34* PO2 ARTERIAL 123* HCO3 ARTERIAL 21* BASE EXCESS ARTERIAL -2.9* Total RSBI: 6 (10/09/17 0829) A/P: Hypoxia: -on 3L NC -pulm toilet CARDIOVASCULAR: Exam: auscultation normal, rhythm and rate normal and pulses equal bilaterally Troponin: Lab 10/10/17 0158 TROPONIN I 0.16* Hemodynamics: No data found. A/P: NSR on monitor Hypertension ASA Home Meds Held: Losartan 50 mg daily Coreg 25mg BID Metoprolol 10mg q6h -> d/c'd overnight, started on esmolol gtt Labetalol 10mg q4h prn Hydralazine 20mg IV q4 PRN -will start metoprolol PO 25mg TID -> place feeding tube Troponin Elevation: -possibly related to hypertension -EKG unchanged -will trend, control HTN with esmolol gtt, will get echo today -0.16 -> 0.15 NUTRITION: TF:N/A TPN rate:N/A A/P: Clears -> NPO GASTROINTESTINAL: Exam: no masses or tenderness, soft, obese, no rebound and no guarding Hepatic Profile: Lab 10/10/17 0158 ALK PHOS 81 ALT 439* AST 231* BILIRUBIN TOTAL 1.1 ALBUMIN 2.3* 2.3* BILIRUBIN DIRECT 0.53* TOTAL PROTEIN 4.6* A/P: ESLD / SAL - Hepatic artery reconstruction - S/P OLT 10/08/2017 - HCV Positive Organ - LFTs and bilis downtrending Hepatic Encephalopathy - Holding Lactulose, Rifaximin GERD - Protonix History of esophageal varices with bleeding - - S/P TIPS Ascites - S/P OLT 10/08/2017 History of acute pancreatitis - No present symptoms - Will monitor FLUIDS/ELECTROLYTES: IVFluids: Normosol 100/hr Labs: Lab 10/10/17 0158 SODIUM 144 POTASSIUM 4.0 CHLORIDE 113* CO2 20* BUN 46* CREATININE 2.22* GLUCOSE 137* CALCIUM 8.4* MAGNESIUM 2.0 PHOSPHORUS 4.2 Date 10/09/17 0700 - 10/10/17 0659 10/10/17 0700 - 10/11/17 0659 Shift 7104-8607 6839-7322 5836-1980 24 Hour Total 8539-5679 6378-2406 4115-6321 24 Hour Total I N T A K E P.O. 100 100 P.O. 100 100 I.V. (mL/kg) 1166 (10) 702 (6) 1868 (16.1) Volume (mL) Insulin 65 58 123 Volume (mL) Fentanyl 41 41 Volume (mL) (electrolyte-R (pH 7.4) (NORMOSOL-R pH 7.4) iv solution SolP) 644 644 Volume (mL) (sodium chloride 0.9 % infusion) 1060 1060 IV Piggyback 100 60 160 Volume (mL) (metoprolol tartrate (LOPRESSOR) injection 10 mg) 10 10 Volume (mL) (methylPREDNISolone sod suc(PF) (SOLU-medrol) 250 mg in sodium chloride 0.9 % 100 mL IVPB) 100 100 Volume (mL) (mycophenolate (CELLCEPT) 500 mg in dextrose 5% in water (D5W) 50 mL IVPB) 50 50 Shift Total (mL/kg) 1266 (10.9) 862 (7.4) 2128 (18.3) O U T P U T Urine (mL/kg/hr) 150 (0.2) 245 (0.3) 175 570 Output (mL) (IUC (Anders) Straight-tip 16 Fr.) 150 245 175 570 Drains 85 200 285 Output (mL) (Drain 1 Liver Abdomen Right) 55 40 95 Output (mL) (Drain 2 Liver Abdomen Right) 30 160 190 Shift Total (mL/kg) 235 (2) 445 (3.8) 175 (1.5) 855 (7.4) Weight (kg) 116.1 116.1 116.1 116.1 116.1 116.1 116.1 116.1 I/O: 3.3/1.1 Blood: 0 UOP: 715 EBL: 0 Drain 1: 115 Drain 2: 340 A/P: Will monitor electrolytes RENAL: A/P: CARMEN on CKD - Cr 2.22 - Marginal UOP during case, 25-40/hr overnight - Baseline Cr 1.39-1.4 - Baseline BUN 18-20 - gave 500cc bolus overnight with minimal improvement SKIN/MUSCULOSKELETAL: Exam: inspection normal, pitting edema and moves all extremities well A/P: Vitamin D deficiency Will supplement when taking PO HEMATOLOGIC: Labs: Lab 10/10/17 0158 WBC 9.3 HEMOGLOBIN 9.7* HEMATOCRIT 27.6* PLATELETS 63* Lab 10/10/17 0158 INR 1.3* Lab 10/08/17 1353 FIBRINOGEN LEVEL 192* Lab 10/10/17 0158 TEG ANGLE 73.0 TEG K TIME 135.0 TEG LYSIS 30 0.0 TEG MAX AMPLITUDE 51.5* TEG RTIME 35.0 A/P: Coagulopathy Likely 2/2 blood loss Elevated INR intraop (2.2) INR 1.6 now Will continue to trend TEG normalized ENDOCRINE: FSBS range: Lab 10/10/17 0400 10/10/17 0156 10/10/17 0000 10/09/17 2159 10/09/17 1958 10/09/17 1807 10/09/17 1557 10/09/17 1406 POC GLU MONITORING DEVICE 118* 122* 138* 165* 170* 168* 169* 173* Lab 10/08/17 1232 10/08/17 1138 10/08/17 1109 10/08/17 1004 10/08/17 0903 POCGLUART 225* 218* 167* 178* 176* Insulin regimen:Insulin GTT A/P: 176 Units past 24 hours Insulin dependent DMII INFECTIOUS DISEASE: Culture date: N/A Culture result: N/A No results found for: COLORU, CLARITYU, PH, PROTEINUA, PHUR, LABSPEC, GLUCOSEU, BLOODU, LEUKOCYTESUR, NITRITE, BILIRUBINUR, UROBILINOGEN, RBCUA, WBCUA, BACTERIA, AMORPHOUS, CRYSTAL, CASTS No results found for: ISO1, ISO2, ISO3, ISO4, ISO5, ISO6, LABGRAM No results found for: AEROBOT, ANABOT, LABGRAM, ISO2, ISO3, ISO4, ISO5, ISO6, PNAFISH Antibiotics (day):N/A A/P: Prophylaxis per primary CMV IGG - EBV IGG + Mumps IGG + Rubella - Rubeola - VZV IGG + Hep A IGG + Hep B Surface AB + Core - HCV - TB - Toxoplasma - HIV - Treponema - Organ ALEXANDRA HBV + NEUROLOGIC: Exam: sedated, intubated Eye Openin, Best Verbal Response: 2,Best Motor Response: 6 Marcio Coma Scale Score: 11 No data found. EEG: N/A EVD: N/A TCDs:N/A ICP Management: N/A A/P: AMS: -unclear cause, head CT negative -ammonia 91 -consider MRI vs EEG today PSYCHIATRIC: Exam: sedated Sifuentes Agitation Sedation Scale: 0 Overall CAM-ICU : Delirium Present A/P: Pain -morphine GI ASST -> prn fentanyl Order GI ASST Patient Lines/Drains/Airways Status Active Epidural Line / PICC Line / PIV Line / ART Line / Line / CVC Line Name: Placement date: Placement time: Site: Days: Peripheral IV 10/08/17 Left 10/08/17 2 Arterial Line Right Radial Radial Introducer 10/08/17 10/08/17 0953 1 Anders: Yes If yes: Less than 48 hrs EVD: No A/P: Continue current lines INJURY/DISEASE SPECIFIC NEEDS: DVT Prophylaxis: SCDs, SQH GI Prophylaxis: Protonix IVETT BANERJEE 10/10/2017 4:44 AM Cosigned by Judi Carter MD at 10/11/2017 8:19 PM EST Associated attestation - Judi Carter MD - 10/11/2017 8:19 PM EST ICU ATTENDING PROGRESS NOTE Leoncio Rollins was seen by the resident team, nurses, pharmacist and respiratory therapists of the multidisciplinary critical care team on 10/10/2017. I have personally seen and examined this patient today (10/10/2017) and reviewed the events of the previous 24 hours with the multidisciplinary criticalcare team and the case has been discussed with the Transplant team. I note the following in my assessment and will implement this plan of coordinated critical care management as follows: 42 yo M with HTN, DM-II, hyperlipidemia, and ESLD from SAL (encephalopathy, varices, MELD 25) and emergent TIPS () who underwent OLT on 10-07-2017. Intraoperative mean PA pressures initially 40s, PAS 60s. Otherwise uneventful transplant I note the following events over the last 24 hours, with the assessment and implementation of coordinated critical care management as below: extubated yesterday - altered MS persists. Head CT negative. Persistent hypertension overnight - started esmolol. HEENT: No acute issues. RESPIRATORY: Atelectasis/pulmonary collapse Hypoxia Respiratory failure, acute WITH trauma or surgery Extubated - successfully - Continue IS, pulm toileting. Weaned to 3LPM NC. Start EZPAP. CARDIOVASCULAR: Hypertension, essential benign pulm hypertension Hyperlipidemia - Tachycardia Home meds coreg 25BID and losartan 50 daily - Esmolol at 80mg - start metoprolol 25mg TID after FT placed - continue esmolol gtt and wean. ECHO today. Stop checking troponin. NUTRITION: No acute issues - NPO today. Speech consult. GASTROINTESTINAL: Cirrhosis, not secondary to alcohol s/p OLT - LFTs improving. continue ASA for reconstructed hepatic artery. Duplex with normal RIs. Continue entecavir GERD - on home ppi - continue given immunosuppressives. FLUIDS / ELECTROLYTES: NS at 75 Hypomagnesemia - supplement per protocol RENAL: CKD - baseline cr 1.4 Up to 2.2 today. UOP 882. Keep anders. Normosol @100ml/hr SKIN/MUSCULOSKELETAL No acute issues. HEMATOLOGIC: Coagulopathy, unspecified - resolved. Thrombocytopenia - 63k - no transfusion Acute hemorrhagic anemia - hgb 9.7. Will monitor today - does not appear to be bleeding. ENDOCRINE: DM, type II, controlled - on insulin gtt - continue -worsened with steroids. Holding oral hypoglycemics. HbA1C 5.4 as outpatient. txp immunosuppression - steroids, cellcept INFECTIOUS DISEASE: hepatitis B - will need entecavir txp prophylaxis - nystatin, valcyte. NEUROLOGIC: Altered Mental Status - after extubation with new aphasia and difficulty FCs. Head CT negative - nonfocal exam - check MRI. Neurology consult. Speech consult for possible dysphagia. PSYCHIATRIC, PAIN, SEDATION: Pain Management - PRN fentanyl. D/c morphine given CARMEN. INJURY / DISEASE SPECIFIC NEEDS: No acute issues DVT Prophylaxis: Subcutaneous Heparin - GI Prophylaxis: ppi ACTIVE LINES: Patient Lines/Drains/Airways Status Active Epidural Line / PICC Line / PIV Line / ART Line / Line / CVC Line Name: Placement date: Placement time: Site: Days: Peripheral IV 10/08/17 Left 10/08/17 1 Arterial Line Right Radial Radial Introducer 10/08/17 10/08/17 0953 less than 1 d/c swan if extubate and d/c MAC. Central Line? Yes - Reason: Hemodynamic monitoring swan ACTIVE DRAINS: Urinary Catheter? Anders - Reason: Adequate I/O DISPOSITION: Remain in ICU Total critical care time spent caring for this patient over the past 24 hours, including direct patient contact, management of life support systems review of data (i.e.: imaging and lab), discussion with team members, and excluding time spent on procedures: 42 minutes This note documents care provided on 10/10/2017. Judi Carter MD Surgical [employer] Division of Trauma and Critical Care [facility] Academic Office [phone] Pager: [phone] 10/10/2017 6:24 AM * Cecelia Parmar - 10/10/2017 3:18 AM EST EKG completed. Results given to MD. * Latrice Silvestre RN - 10/09/2017 5:52 PM EST Pt. Transported to CT scan via bed on cardiac monitoring. Accompanied by RN and transporter. Pt. Tolerated transport well. Returned to SICU after test. * Joan Amaro RRT - 10/09/2017 9:42 AM EST Pt extubated per MD order. Pt ashwin well and placed on NC@ 5 LPM. BS clear and diminished. N stridor noted. Respirations easy. * RADHA Kline - 10/09/2017 8:16 AM EST Social Work Note- Outpatient Liver Transplant Patient is status post liver transplant on 10/08/17. Patient is in the SICU. Inpatient SW/Laundry Machine Tender to complete psychosocial assessment once medically able. This information has been communicated to the multi-disciplinary team. SW to follow. RADHA Kline, CUTTING TOOL SHARPENER [phone] * Joceline Maxwell MD - 10/09/2017 5:34 AM EST TXP Surgery Progress Note Subjective Remains intubated. 500 cc bolus, UOP 20-30/hr overnight. Objective Vitals: 10/09/17 0432 10/09/17 0433 10/09/17 0500 10/09/17 0504 BP: 130/86 130/86 BP Location: Patient Position: Pulse: 100 98 111 104 Resp: Temp: TempSrc: SpO2: 97% 97% 97% 97% Weight: Height: Date 10/08/17 0700 - 10/09/17 0659 10/09/17 0700 - 10/10/17 0659 Shift 5716-9464 3878-4913 6393-4376 24 Hour Total 5122-6813 1065-5059 2066-7321 24 Hour Total I N T A K E I.V. (mL/kg) 4000 (34.4) 1207.2 (10.4) 967.3 (8.3) 6174.5 (53.2) Volume (mL) Insulin 114 76.4 190.4 Volume (mL) Propofol 114 34.9 148.9 Volume (mL) Fentanyl 25.2 60 85.2 Volume (mL) (lactated Ringers infusion) 900 900 Volume (mL) (electrolyte-R (pH 7.4) (NORMOSOL-R pH 7.4) iv solution SolP) 2100 2100 Volume (mL) (sodium chloride 0.9 % infusion) 1000 1000 Volume (mL) (sodium chloride 0.9 % infusion) 618 326 9466 Blood 2473 2473 PRBC - Units 2 x 2 x PRBC - Volume 584 584 FFP - Units 5 x 5 x FFP - Volume 638 638 Platelets - Volume 1 1 Cell Saver - Volume 1250 1250 NG/GT 60 60 Flushes (mL) (NG/OG Tube Orogastric Right mouth) 60 60 IV Piggyback 750 750 Volume (mL) (magnesium sulfate in D5W 100 mL 1 gram/100 mL IVPB 1 g) 100 100 Volume (mL) (magnesium sulfate in D5W 100 mL 1 gram/100 mL IVPB 1 g) 100 100 Volume (mL) (sodium chloride 0.9 % 500 mL bolus) 500 500 Volume (mL) (mycophenolate (CELLCEPT) 500 mg in dextrose 5% in water (D5W) 50 mL IVPB) 50 50 Shift Total (mL/kg) 6473 (55.7) 2017.2 (17.4) 967.3 (8.3) 9457.5 (81.4) O U T P U T Urine (mL/kg/hr) 435 (0.5) 315 (0.3) 177 927 Urine 375 375 Output (mL) (IUC (Anders) Straight-tip 16 Fr.) 60 315 177 552 Emesis/NG output 200 100 300 Drainage Output (mL) (NG/OG Tube Orogastric Right mouth) 200 100 300 Drains 315 110 425 Output (mL) (Drain 1 Liver Abdomen Right) 120 60 180 Output (mL) (Drain 2 Liver Abdomen Right) 195 50 245 Blood 2800 2800 Est Blood Loss 2800 2800 Shift Total (mL/kg) 3235 (27.9) 830 (7.1) 387 (3.3) 4452 (38.3) Weight (kg) 116.1 116.1 116.1 116.1 116.1 116.1 116.1 116.1 Current Medications: Scheduled Medications: aspirin 81 mg Daily with breakfast entecavir 0.5 mg DAILY 0600 fentaNYL methylprednisolone (SOLU-medrol) IV 250 mg Once Followed by [START ON 10/10/2017] methylPREDNISolone sod suc(PF) 125 mg Once Followed by [START ON 10/11/2017] methylPREDNISolone sod suc(PF) 60 mg Once Followed by [START ON 10/12/2017] methylPREDNISolone sod suc(PF) 50 mg Once Followed by [START ON 10/13/2017] predniSONE 40 mg Once Followed by [START ON 10/14/2017] predniSONE 30 mg Once Followed by [START ON 10/15/2017] predniSONE 25 mg Once Followed by [START ON 10/16/2017] predniSONE 20 mg Daily 0900 mycophenolate (CELLCEPT) IVPB 500 mg BID nystatin 500,000 Units TID pantoprazole 40 mg DAILY 0600 Pharmacy to Discontinue all previous insulin and antidiabetic medications Once IV Medications: fentanyl (SUBLIMAZE) infusion Last Rate: 100 mcg/hr (10/09/17 0053) insulin (HumuLIN R) infusion Last Rate: 7 Units/hr (10/09/17 040) propofol Last Rate: 10 mcg/kg/min (10/09/17 0403) sodium chloride Last Rate: 100 mL/hr (10/08/17 1417) PRN Medications: All IV Medications in Normal Saline 0.9% UD dextrose 50 % in water (D50W) 25-50 mL Q15 Min PRN glucose 12 g Q15 Min PRN hydrALAZINE 20 mg Q4H PRN INSULIN INFUSION PROTOCOL (NOT FOR DKA OR HHS) UD Physical Exam: General: No acute distress Neuro: sedated Cardiovascular: Regular rate and rhythm Respiratory: intubated Abdomen: soft, non-tender, non-distended; incision c/d/i Extremities: warm and well perfused Skin: warm and dry Labs: Recent Labs 10/08/17 1353 10/08/17200510/09/17 0113 WBC 3.6* 7.6 8.6 HGB 10.2* 11.1* 10.5* HCT 28.6* 30.5* 29.7* PLT 86* 80* 76* Recent Labs 10/08/17 1353 10/08/17200510/09/17 0113 NA 145 145 145 K 4.7 4.1 4.2 CL 113* 115* 114* CO2 21 22 21 BUN 25 31* 34* CREATININE 1.58* 1.81* 1.87* GLUCOSE 252* 242* 223* CALCIUM 9.6 9.7 9.3 MG 1.7 1.5 2.0 PHOS 4.5 3.8 3.8 Recent Labs 10/08/17 1353 10/08/17200510/09/17 0113 INR 1.8* 1.6* 1.6* PROTIME 21.0* 19.4* 18.8* No results for input(s): HPTT in the last 72 hours. Assessment/Plan: Leoncio Rollins is a 42 y.o. male s/p liver txp (10/08) -wean insulin gtt -wean sedation (on propofol, fentanyl gtt) -wean to extubation per ICU -can DC OG once extubated -US today -CVP monitoring -ASA -solumedrol, cellcept, pred taper -nystatin -NPO JOCELINE MAXWELL MD 10/09/2017 Pager [id number] Cosigned by David Mendenhall MD at 10/09/2017 3:12 PM EST Associated attestation - David Mendenhall MD - 10/09/2017 3:12 PM EST I have seen and examined the patient and agree with the plan. All points of care were reviewed in amultidisciplinary fashion with the housestaff and teams involved. Immunosuppression reviewed and discussed with multidisciplinary team. * Je Acevedo MD - 10/09/2017 3:37 AM EST Surgical ICU H&P / CONSULT 10/09/2017 3:37 AM Patient:Leoncio Rollins HPI: Leoncio Rollins is a 42 y.o. 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 He was previously following at , but decompensated in 09/2016 with massive variceal bleed and TIPS procedure. As a result, he was second listed at . His liver disease has been complicated by encephalopathy, it is being treated with xifaxan and lactulose. After Stites-viviana catheter was placed, Mr. Rollins was found to have pulmonary hypertension with BPs in the 40s. His transplant was otherwise uncomplicated, EBL 2800, and he received 5 units FFP, 2 units pRBC, 1 plt. Additionally he received 1250 of Cell Saver. Past Medical History: Diagnosis Date ??? Acute pancreatitis ??? Ascites ??? Diabetes mellitus (HCC) ??? Esophageal varices with bleeding (HCC) ??? GERD (gastroesophageal reflux disease) ??? Hepatic encephalopathy (HCC) ??? Hypertension ??? 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 Vitamin D deficiency Past Surgical History: Procedure Laterality Date ??? TIPS PROCEDURE 10/2016 ??? TIPS Revision 04/2017 Prescriptions Prior to Admission Medication Sig Dispense Refill Last Dose ??? carvedilol (COREG) 25 MG tablet Take 25 mg by mouth 2 times a day with meals. Taking ??? ergocalciferol (ERGOCALCIFEROL) 50,000 unit capsule Take 50,000 Units by mouth once a week. Taking ??? esomeprazole (NEXIUM) 40 MG capsule Take 40 mg by mouth every morning before breakfast. Taking ??? gabapentin (NEURONTIN) 600 MG tablet Take 600 mg by mouth 3 times a day. Taking ??? glimepiride (AMARYL) 1 MG tablet Take 1 mg by mouth before breakfast. Taking ??? insulin glargine (BASAGLAR KWIKPEN) 100 unit/mL (3 mL) InPn Inject 40 Units subcutaneously at bedtime. Taking ??? insulin glulisine (APIDRA SOLOSTAR) 100 unit/mL InPn Inject subcutaneously. Taking ??? lactulose (CHRONULAC) 10 gram/15 mL solution Take 20 g by mouth 3 times a day. Indications: Hepatic Encephalopathy Taking ??? losartan (COZAAR) 50 MG tablet Take 50 mg by mouth daily. Taking ??? metFORMIN ER (GLUMETZA) 1000 MG (MOD) 24 hr tablet Take 1,000 mg by mouth 2 times a day with meals. Taking ??? rifAXIMin (XIFAXAN) 550 mg Tab tablet Take 550 mg by mouth 2 times a day. Taking ??? tiZANidine (ZANAFLEX) 4 MG capsule Take 0.5 mg by mouth at bedtime as needed for Muscle spasms.Taking ??? zinc sulfate (ZINCATE) 220 (50) mg capsule Take 1 capsule (220 mg total) by mouth 2 times a day. 60 capsule 3 Scheduled Meds: ??? aspirin 81 mg Oral Daily with breakfast ??? entecavir 0.5 mg Oral DAILY 0600 ??? fentaNYL ??? methylprednisolone (SOLU-medrol) IV 250 mg Intravenous Once Followed by ??? [START ON 10/10/2017] methylPREDNISolone sod suc(PF) 125 mg Intravenous Once Followed by ??? [START ON 10/11/2017] methylPREDNISolone sod suc(PF) 60 mg Intravenous Once Followed by ??? [START ON 10/12/2017] methylPREDNISolone sod suc(PF) 50 mg Intravenous Once Followed by ??? [START ON 10/13/2017] predniSONE 40 mg Oral Once Followed by ??? [START ON 10/14/2017] predniSONE 30 mg Oral Once Followed by ??? [START ON 10/15/2017] predniSONE 25 mg Oral Once Followed by ??? [START ON 10/16/2017] predniSONE 20 mg Oral Daily 0900 ??? mycophenolate (CELLCEPT) IVPB 500 mg Intravenous BID ? ? nystatin 500,000 Units Swish & Swallow TID ??? pantoprazole 40 mg Intravenous DAILY 0600 ??? Pharmacy to Discontinue all previous insulin and antidiabetic medications MISCELLANEOUS Once Continuous Infusions: ??? fentanyl (SUBLIMAZE) infusion 100 mcg/hr (10/09/17 0053) ??? insulin (HumuLIN R) infusion 9 Units/hr (10/09/17 0207) ??? propofol 5 mcg/kg/min (10/08/17 1946) ??? sodium chloride 100 mL/hr (10/08/17 1417) PRN Meds:.All IV Medications in Normal Saline 0.9%, dextrose 50 % in water (D50W), glucose, hydrALAZINE, insulin (HumuLIN R) infusion AND INSULIN INFUSION PROTOCOL (NOT FOR DKA OR HHS) Allergies Allergen Reactions ??? Codeine ??? Dilaudid [Hydromorphone] Other (See Comments) Hallucinations ??? Flexeril [Cyclobenzaprine] Social History Substance Use Topics ??? Smoking status: Never Smoker ??? Smokeless tobacco: Never Used ??? Alcohol use No Family History Problem Relation Age of Onset ??? Diabetes Sister REVIEW OF SYSTEMS: Pertinent items are noted in HPI. PHYSICAL EXAM: CONSTITUTIONAL: General: Intubated, sedated, jaundiced Temp (24hrs), Av.1 ??F (37.3 ??C), Min:98.2 ??F (36.8 ??C), Max:100.4 ??F (38 ??C) BP 121/78 Pulse 98 Temp 100.4 ??F (38 ??C) (Mike) Resp 18 Ht 5' 7 (1.702 m) Wt (!) 256 lb (116.1 kg) SpO2 97% BMI 40.10 kg/m?? HEENT: Exam: conjuctiva, lids normal, scleral icterus and pupils equal A/P:No acute issues RESPIRATORY: Exam: effort normal and clear to auscultation bilaterally Respiratory Support: Vent Setting: Patient Vitals for the past 4 hrs: FiO2 Vent Mode Spont TV PIP Observed PEEP/CPAP Delta Pressure Support (cm H2O) 10/09/17311 40 % Spont PS/PEEP 832 mL 16 cm H2O 5 cm H20 10 cm H2O 10/09/17 0300 39 % - - - - - 10/09/17 0200 39 % - - - - - 10/09/17 0100 39 % - - - - - 10/09/17 0034 39 % Spont PS/PEEP 859 mL 19 cm H2O 8 cm H20 10 cm H2O 10/09/17 0000 40 % - - - - - Lab 10/09/17 0224 PH ARTERIAL 7.36 PCO2 ARTERIAL 38 PO2 ARTERIAL 136* HCO3 ARTERIAL 22 BASE EXCESS ARTERIAL -3.3* Total RSBI: 11 (10/09/17311) A/P: Hypoxia: Wean vent as tolerated SBT Potential extubate today Pulmonary Hypertension: No intervention at this time CARDIOVASCULAR: Exam: auscultation normal, rhythm and rate normal and pulses equal bilaterally Troponin: Hemodynamics: Patient Vitals for the past 4 hrs: CVP (mmHg) PAP 10/09/17 0300 11 mmHg 51/27 10/09/17 0200 13 mmHg 59/30 10/09/17 0100 13 mmHg 55/31 10/09/17 0000 11 mmHg 52/28 A/P: NSR on monitor Hypertension ASA Home Meds Held: Losartan 50 mg daily Coreg 25mg BID Hydralazine 20mg IV q4 PRN Discuss beta blockade today NUTRITION: TF:N/A TPN rate:N/A A/P: NPO Moderate Protein Calorie Malnutrition - Albumin 3.0 - Will encourage early feeds. GASTROINTESTINAL: Exam: no masses or tenderness, soft, obese, no rebound and no guarding Hepatic Profile: Lab 10/09/17 0113 ALK PHOS 63 ALT 748* AST 974* BILIRUBIN TOTAL 1.6* ALBUMIN 2.4* 2.4* BILIRUBIN DIRECT 0.71* TOTAL PROTEIN 4.7* A/P: ESLD 2/2 SAL - Hepatic artery reconstruction - S/P OLT 10/08/2017 - Bilirubin 4.7 (4.3) - Baseline AST 974 (47), ALT 748 (24) - Transplant PPX per primary team - HCV Positive Organ Hepatic Encephalopathy - Lactulose - Rifaximin GERD - Protonix History of esophageal varices with bleeding - - S/P TIPS Ascites - S/P OLT 10/08/2017 History of acute pancreatitis - No present symptoms - Will monitor FLUIDS/ELECTROLYTES: IVFluids: Normosol 125/hr Labs: Lab 10/09/17 0113 SODIUM 145 POTASSIUM 4.2 CHLORIDE 114* CO2 21 BUN 34* CREATININE 1.87* GLUCOSE 223* CALCIUM 9.3 MAGNESIUM 2.0 PHOSPHORUS 3.8 Date 10/08/17 07 - 10/09/17 0659 10/09/17 07 - 10/10/17 0659 Shift 3608-4365 5714-6192 0011-0142 24 Hour Total 3766-9289 4024-6179 6954-9607 24 Hour Total I N T A K E I.V. (mL/kg) 4000 (34.4) 1207.2 (10.4) 5207.2 (44.8) Volume (mL) Insulin 114 114 Volume (mL) Propofol 114 114 Volume (mL) Fentanyl 25.2 25.2 Volume (mL) (lactated Ringers infusion) 900 900 Volume (mL) (electrolyte-R (pH 7.4) (NORMOSOL-R pH 7.4) iv solution SolP) 2100 2100 Volume (mL) (sodium chloride 0.9 % infusion) 1000 1000 Volume (mL) (sodium chloride 0.9 % infusion) 954 954 Blood 2473 2473 PRBC - Units 2 x 2 x PRBC - Volume 584 584 FFP - Units 5 x 5 x FFP - Volume 638 638 Platelets - Volume 1 1 Cell Saver - Volume 1250 1250 NG/GT 60 60 Flushes (mL) (NG/OG Tube Orogastric Right mouth) 60 60 IV Piggyback 750 750 Volume (mL) (magnesium sulfate in D5W 100 mL 1 gram/100 mL IVPB 1 g) 100 100 Volume (mL) (magnesium sulfate in D5W 100 mL 1 gram/100 mL IVPB 1 g) 100 100 Volume (mL) (sodium chloride 0.9 % 500 mL bolus) 500 500 Volume (mL) (mycophenolate (CELLCEPT) 500 mg in dextrose 5% in water (D5W) 50 mL IVPB) 50 50 Shift Total (mL/kg) 6473 (55.7) 2017.2 (17.4) 8490.2 (73.1) O U T P U T Urine (mL/kg/hr) 435 (0.5) 315 (0.3) 132 882 Urine 375 375 Output (mL) (IUC (Anders) Straight-tip 16 Fr.) 60 315 132 507 Emesis/NG output 200 200 Drainage Output (mL) (NG/OG Tube Orogastric Right mouth) 200 200 Drains 315 315 Output (mL) (Drain 1 Liver Abdomen Right) 120 120 Output (mL) (Drain 2 Liver Abdomen Right) 195 195 Blood 2800 2800 Est Blood Loss 2800 2800 Shift Total (mL/kg) 3235 (27.9) 830 (7.1) 132 (1.1) 4197 (36.1) Weight (kg) 116.1 116.1 116.1 116.1 116.1 116.1 116.1 116.1 I/O: 8.4/4.2 Blood: 5x FFP, 2x pRBC, 1x Platelets, 1250 Cell saver UOP: 882 EBL: 2800 Drain 1: 120 Drain 2: 195 A/P: Non-anion gap metabolic acidosis - Resolved Baseline Bicarbonate 24 Lactate 1.4, will continue to trend PH 7.34 RENAL: A/P: CARMEN on CKD - Cr 1.87 (1.57) - Marginal UOP during case - Baseline Cr 1.39-1.4 - Baseline BUN 18-20 - Monitor UOP - Resuscitate as needed - Anders for strict I/O SKIN/MUSCULOSKELETAL: Exam: inspection normal, pitting edema and moves all extremities well A/P: Vitamin D deficiency Will supplement when taking PO HEMATOLOGIC: Labs: Lab 10/09/17 0113 WBC 8.6 HEMOGLOBIN 10.5* HEMATOCRIT 29.7* PLATELETS 76* Lab 10/09/17 0113 INR 1.6* Lab 10/08/17 1353 FIBRINOGEN LEVEL 192* Lab 10/08/17 1353 TEG ANGLE 72.3 TEG K TIME 120.0 TEG LYSIS 30 0.0 TEG MAX AMPLITUDE 54.1 TEG RTIME 45.0* A/P: Coagulopathy Likely 2/2 blood loss Elevated INR intraop (2.2) INR 1.6 now Will continue to trend Repeat TEG ENDOCRINE: FSBS range: Lab 10/09/17 0300 10/09/17 0206 10/09/17 0111 10/09/17 0010 10/08/17 2311 10/08/17 2203 10/08/17 2103 10/08/172004 POC GLU MONITORING DEVICE 203* 203* 216* 233* 254* 227* 233* 227* Lab 10/08/17 1232 10/08/17 1138 10/08/17 1109 10/08/17 1004 10/08/17 0903 POCGLUART 225* 218* 167* 178* 176* Insulin regimen:Insulin GTT A/P: 190 Units past 24 hours Insulin dependent DMII INFECTIOUS DISEASE: Culture date: N/A Culture result: N/A No results found for: COLORU, CLARITYU, PH, PROTEINUA, PHUR, LABSPEC, GLUCOSEU, BLOODU, LEUKOCYTESUR, NITRITE, BILIRUBINUR, UROBILINOGEN, RBCUA, WBCUA, BACTERIA, AMORPHOUS, CRYSTAL, CASTS No results found for: ISO1, ISO2, ISO3, ISO4, ISO5, ISO6, LABGRAM No results found for: AEROBOT, ANABOT, LABGRAM, ISO2, ISO3, ISO4, ISO5, ISO6, PNAFISH Antibiotics (day):N/A A/P: Prophylaxis per primary CMV IGG - EBV IGG + Mumps IGG + Rubella - Rubeola - VZV IGG + Hep A IGG + Hep B Surface AB + Core - HCV - TB - Toxoplasma - HIV - Treponema - Organ ALEXANDRA HBV + NEUROLOGIC: Exam: sedated, intubated Eye Openin, Best Verbal Response: 1 (johan),Best Motor Response: 6 Benld Coma Scale Score: 10 No data found. EEG: N/A EVD: N/A TCDs:N/A ICP Management: N/A A/P: Wean sedation as tolerated Hepatic Encephalopathy - Lactulose - Xifaxan PSYCHIATRIC: Exam: sedated Sifuentes Agitation Sedation Scale: -2 Overall CAM-ICU : (johan) A/P: Pain Fentanyl GTT Propofol GTT - Wean as tolerated Order GI ASST Patient Lines/Drains/Airways Status Active Epidural Line / PICC Line / PIV Line / ART Line / Line / CVC Line Name: Placement date: Placement time: Site: Days: Peripheral IV 10/08/17 Left 10/08/17 1 Arterial Line Right Radial Radial Introducer 10/08/17 10/08/17 0953 less than 1 Anders: Yes If yes: Less than 48 hrs EVD: No A/P: Continue current lines - Possible extubation this morning - DC Stites and 1 MAC INJURY/DISEASE SPECIFIC NEEDS: DVT Prophylaxis: SCDs Will discuss heparin with primary team GI Prophylaxis: None EJ ACEVEDO 10/09/2017 3:37 AM Cosigned by Judi Carter MD at 10/10/2017 6:26 AM EST Associated attestation - Judi Carter MD - 10/10/2017 6:26 AM EST ICU ATTENDING PROGRESS NOTE Leoncio Rollins was seen by the resident team, nurses, pharmacist and respiratory therapists of the multidisciplinary critical care team on 10/09/2017. I have personally seen and examined this patient today (10/09/2017) and reviewed the events of the previous 24 hours with the multidisciplinary criticalcare team and the case has been discussed with the Transplant team. I note the following in my assessment and will implement this plan of coordinated critical care management as follows: 42 yo M with HTN, DM-II, hyperlipidemia, and ESLD from SAL (encephalopathy, varices, MELD 25) and emergent TIPS () who underwent OLT on 10-07-2017. Intraoperative mean PA pressures initially 40s, PAS 60s. Otherwise uneventful transplant I note the following events over the last 24 hours, with the assessment and implementation of coordinated critical care management as below: hypertensive and hyperglycemic overnight. HEENT: No acute issues. RESPIRATORY: Atelectasis/pulmonary collapse Hypoxia Respiratory failure, acute WITH trauma or surgery PSV delta 10/5 40% - TVs 700-800 SBT this am - plan to extubate. Start volume expansion protocol, wean supplemental O2 as tolerated. CARDIOVASCULAR: Hypertension, essential benign pulm hypertension Hyperlipidemia - restart statin when taking po D/w transplant starting low dose betablocker. D/c swan when extubated. NUTRITION: No acute issues - NPO today. GASTROINTESTINAL: Cirrhosis, not secondary to alcohol s/p OLT - LFTs improving. continue ASA for reconstructed hepatic artery. Check duplex today. Continue entecavir GERD - on home ppi - continue given immunosuppressives. FLUIDS / ELECTROLYTES: NS at 75 Hypomagnesemia - supplement per protocol RENAL: CKD - baseline cr 1.4 Up to 2 today. UOP 882. Keep anders. Change to normosol and increase rate to 125ml/hr - check labs this pm. Will need more volume. SKIN/MUSCULOSKELETAL No acute issues. HEMATOLOGIC: Coagulopathy, unspecified - INR improved to 1.4. Thrombocytopenia - 81k - no transfusion Acute hemorrhagic anemia - hgb 10.4 Will monitor today - does not appear to be bleeding. ENDOCRINE: DM, type II, controlled - on insulin gtt - continue - at 9. Holding oral hypoglycemics. HbA1C 5.4 as outpatient. txp immunosuppression - steroids, cellcept INFECTIOUS DISEASE: hepatitis B - will need entecavir txp prophylaxis - nystatin NEUROLOGIC: Altered Mental Status - after extubation with new aphasia and difficulty FCs. Head CT negative - ifno improvement will need MRI. PSYCHIATRIC, PAIN, SEDATION: Pain Management - d/c fent/propofol - start GI ASST. INJURY / DISEASE SPECIFIC NEEDS: No acute issues DVT Prophylaxis: Subcutaneous Heparin - start GI Prophylaxis: ppi ACTIVE LINES: Patient Lines/Drains/Airways Status Active Epidural Line / PICC Line / PIV Line / ART Line / Line / CVC Line Name: Placement date: Placement time: Site: Days: Peripheral IV 10/08/17 Left 10/08/17 1 Arterial Line Right Radial Radial Introducer 10/08/17 10/08/17 0953 less than 1 d/c swan if extubate and d/c MAC. Central Line? Yes - Reason: Hemodynamic monitoring swan ACTIVE DRAINS: Urinary Catheter? Anders - Reason: Adequate I/O DISPOSITION: Remain in ICU Total critical care time spent caring for this patient over the past 24 hours, including direct patient contact, management of life support systems review of data (i.e.: imaging and lab), discussion with team members, and excluding time spent on procedures: 42 minutes This note documents care provided on 10/09/2017. Judi Carter MD [employer] Division of Trauma and Critical Care [facility] Academic Office [phone] Pager: [phone] 10/10/2017 6:24 AM * Paulina Chiang RN - 10/08/2017 6:27 PM EST Leoncio Rollins is a 42 y.o. male admitted to the SICU 10/08/2017 at 1330s/p liver transplant. Patient arrived to SICU bed SICU-18/USIC-18 via bed . Patient arrived intubated. Patient immediately placed on SICU continuous cardiac and SpO2 monitoring. Report obtained at bedside from anesthesia. Please refer to documentation flowsheets for a complete assessment and vital signs. Admission orders reviewed. Labs sent. Family present at this time. PAULINA CHIANG 10/08/2017 6:27 PM * Mandi Cazares PharmD - 10/08/2017 8:24 AM EST Transplant Pharmacy Note Transplant pharmacy is following Leoncio Rollins during hospital admission. Medication reconciliation has been performed and home medications will be reinitiated as appropriate. Transplant pharmacy willperform the following activities related to transplant pharmacotherapy: 1. Ensure appropriate management and titration of immunosuppressive, prophylactic, and other supportive care medications; 2. Monitor for any adverse drug effects; 3. Review the patient's medication profile for any potential drug interaction. Per programmatic guidelines, this patient will receive the following immunosuppressive regimen: ?? Liver Transplant - Standard immunosuppression guidelines Protocol Renal Function Antibody Steroids Antimetabolite Calcineurin Inhibitor STANDARD Includes all recipients (including SLKT) and all types of donors (including SPLIT) SCr < 2.0mg/dL None Taper Initiate PRE-op Mycophenolate mofetil (MMF) 500mg po q 12 Initiate on POD#0 Tacrolimus 2-4mg/dose q 12h Initiate by POD#2 Target Levels: POD #0-30: 10-12 ng/mL POD #31-180: 8-10 ng/mL POD #> 180: 3-8 ng/mL For non-transplant related issues, please contact the clinical pharmacist assigned to the primary service. Mandi Cazares PharmD Transplant Pharmacy Specialty Resident Desk Pager: [phone] * Ravi Byrd RN - 10/08/2017 1:46 AM EST Leoncio Rollins is a 42 y.o. male admitted to the [facility] . Patient arrived [id number] via bed . Please refer to documentation flowse for a complete assessment and vital signs. Admission orders reviewed. Pt oriented to room and call light. Fall risk reviewed with pt. Will continue to monitor. documented in this encounter H&P Notes * Jack Delgado MD - 10/08/2017 12:11 AM EST SURGERY H&P Attending: MD Debra Surgical Service: Transplant Date Seen: 10/07/2017 Patient Name: Leoncio Rollins SUBJECTIVE CC: End stage liver disease, HPI: Leoncio Rollins is a 42 y.o. male with a PMHx significant for ESLD w/ cirrhosis secodary to SAL,HTN, IDDM, GERD, and obesity presenting to the hospital in anticipation of orthotopic liver transplantation. He was recently second listed to [facility] from . His cirrhosis previously deco mpensated in 09/2016 with massive variceal bleed and placement of TIPS. His liver disease is complicated by encephalopathy, which is treated with xifaxan and lactulose. He denies recent sick contact, recent sickness, fevers, chills, CP, SOB, nausea, vomitting, diarrhea, constipation, dysuria, or swelling. PMHx: Past Medical History: Diagnosis Date ??? Acute pancreatitis ??? Ascites ??? Diabetes mellitus (HCC) ??? Esophageal varices with bleeding (HCC) ??? GERD (gastroesophageal reflux disease) ??? Hepatic encephalopathy (HCC) ??? Hypertension ??? 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 Vitamin D deficiency PSHx: Past Surgical History: Procedure Laterality Date ??? TIPS PROCEDURE 10/2016 ??? TIPS Revision 04/2017 MEDS: No current facility-administered medications on file prior to encounter. Current Outpatient Prescriptions on File Prior to Encounter Medication Sig Dispense Refill ??? carvedilol (COREG) 25 MG tablet Take 25 mg by mouth 2 times a day with meals. ??? ergocalciferol (ERGOCALCIFEROL) 50,000 unit capsule Take 50,000 Units by mouth once a week. ??? esomeprazole (NEXIUM) 40 MG capsule Take 40 mg by mouth every morning before breakfast. ??? gabapentin (NEURONTIN) 600 MG tablet Take 600 mg by mouth 3 times a day. ??? glimepiride (AMARYL) 1 MG tablet Take 1 mg by mouth before breakfast. ??? insulin glargine (BASAGLAR KWIKPEN) 100 unit/mL (3 mL) InPn Inject 40 Units subcutaneously at bedtime. ??? insulin glulisine (APIDRA SOLOSTAR) 100 unit/mL InPn Inject subcutaneously. ??? lactulose (CHRONULAC) 10 gram/15 mL solution Take 20 g by mouth 3 times a day. Indications: Hepatic Encephalopathy ??? losartan (COZAAR) 50 MG tablet Take 50 mg by mouth daily. ??? metFORMIN ER (GLUMETZA) 1000 MG (MOD) 24 hr tablet Take 1,000 mg by mouth 2 times a day with meals. ??? rifAXIMin (XIFAXAN) 550 mg Tab tablet Take 550 mg by mouth 2 times a day. ??? tiZANidine (ZANAFLEX) 4 MG capsule Take 0.5 mg by mouth at bedtime as needed for Muscle spasms. ??? zinc sulfate (ZINCATE) 220 (50) mg capsule Take 1 capsule (220 mg total) by mouth 2 times a day. 60 capsule 3 Allergies: Allergies Allergen Reactions ??? Codeine ??? Flexeril [Cyclobenzaprine] SocHx: Social History Social History ??? Marital status: [...] History Narrative ??? No narrative on file FHx: Family History Problem Relation Age of Onset ??? Diabetes Sister OBJECTIVE VS: There were no vitals filed for this visit. I/O: No intake or output data in the 24 hours ending 10/07/17 3017 Physical Exam: Gen: Alert and oriented x3, no acute distress, intention tremor, jaundiced HEENT: NCAT, PERRL, neck supple CV: Regular rate and rhythm, normal S1 and S2 Resp: CTAB, no respiratory distress Abd: Soft, non-distended, non-tender, no masses Ext: Warm and well perfused Labs: Lab Results Component Value Date WBC 4.3 08/21/2017 HGB 11.3 (L) 08/21/2017 HCT 33.0 (L) 08/21/2017 MCV 105.6 (H) 08/21/2017 PLT 146 08/21/2017 Lab Results Component Value Date NA 142 10/02/2017 K 3.9 10/02/2017 CL 106 10/02/2017 CO2 23 10/02/2017 PHOS 2.9 10/02/2017 BUN 20 10/02/2017 CREATININE 1.43 (H) 10/02/2017 No components found for: GLU Lab Results Component Value Date CALCIUM 9.8 10/02/2017 PHOS 2.9 10/02/2017 No results found for: MG Lab Results Component Value Date BILITOT 5.7 (H) 10/02/2017 AST 47 (H) 10/02/2017 ALT 24 10/02/2017 ALKPHOS 133 (H) 10/02/2017 Imaging: None ASSESSMENT/PLAN Leoncio Rollins is a 42 y.o. male with a PMHx significant for ESLD w/ cirrhosis secodary to SAL, HTN,IDDM, GERD, and obesity presenting to the hospital in anticipation of orthotopic liver transplantation. - Admit for preoperative OLT preparation - Consent for procedure and high risk donor signed and in chart - Site marked and questions answered for family. To be discussed with Dr. Richardson, Transplant Surgery Attending Juan Alberto Delgado Surgery Resident 10/07/2017 Cosigned by Tami Richardson MD at 10/08/2017 1:46 PM EST Associated attestation - Tami Richardson MD - 10/08/2017 1:46 PM EST I was present with the resident during the history and exam. I discussed the case with the residentand agree with the findings and plan as documented in the resident???s note. 42 y.o. male with a PMHx significant for ESLD w/ cirrhosis secodary to SAL, HTN, IDDM, GERD, and obesity presenting to the hospital in anticipation of orthotopic liver transplantation.The risks and benefits of liver transplantation were discussed with the patient. I also explained the use and rationale of CDC or PHS increased high-risk livers which carry a risk of HIV, HBV or HCV infection of 1%with the use of nucleic acid testing. We also discussed the operative risks including hepatic artery stenosis (1%), portal vein stenosis (1%), primary non function (1-5%), seroma (10%), wound infection, reoperation (30%), bile duct stenosis and stricture (10%) or leak and finally from surgery(5%). I also explained the hotel reservationist risks of transplantation and immunosuppression including viralinfection and cancer both solid organ and lymphoma. The donor was deemed [facility] high risk because of drug use and serologies were positive for HBV ALEXANDRA+/HCVAb+/HCV ALEXANDRA-. The PHS high risk form was discussed with the patient including risks of transmissionof viral illnesses including HIV, HCV, and HBV. After discussion of the risks and benefits, a high risk consent form was obtained. I discussed the Hepatitis B status; Hep C Ab being positive and the ALEXANDRA Hep C negative status of the donor with the patient. I also discussed with the patient about taking Entacavir for life ; for which the patient agreed and accepted the organ. documented in this encounter Procedure Notes * David Mendenhall MD - 10/08/2017 7:11 PM EST Patient Name: Leoncio Rollins Date: 1975 Billing #: [id number] Date of Procedure: 10/08/2017 Diagnosis: Chronic Hepatic Failure without coma Procedure: 1. Orthotopic Liver Transplant 2. Back Bench Preparation Donor Liver 3. Dopper ultrasound on liver 4. Arterial backbench reconstruction of replaced right hepatic artery Attending surgeons: Surgeon(s) and Role: * David Mendenhall MD * Tami Richardson MD Brief Writer Surgeon(s): Raissa Hi MD Findings: Whole organ placed in piggyback fashion with 4cm cavo-cavostomy in side to side fashion for IVC anastomosis. Large arterial anastomosis to birfurcation of left and right recipient hepatic artery. Replaced right hepatic artery in donor reconstructed to splenic artery. [id number]-tz-uabp anastomosis performed without stent. This liver came from a 33yo brain donor that was HBV ALEXANDRA positive and HCV Ab positive, ALEXANDRA negative. Anesthesia: GETA Blood/Fluid Products: Allogenic PRBC units: 2 Autologous Cell Saver: 1.25 liters FFP: 4 Platelets: 1 Cold Ischemic Time: 379 min Warm Ischemic Time: 30 min Operative Times: Cross clamp on donor: 10/08/17 4:03 Incision on recipient: 10/08/17 9:03 Liver taken out of ice: 10/08/17 10:22 Liver reperfused:10/08/17 10:52 All incisions closed:10/08/17 12:33 Indications for Procedure: This is a 42-year-old who has SAL and chronic liver failure with complications of ascites requiring TIPS, PSE since the TIPS and varices. The patient also has significant muscle wasting, failure to thrive, and fatigue. He tries to get around his home but has difficulty due to muscle wasting and fatigue. He has been listed at [facility]. Earlier today a donor organ became available. This donor was ABO O and UNOS ID [id number], Match Run [id number] from [facility]. This was a32 year old donor who was brain from anoxia of drug overdose. Liver function tests were normalexcept for AST/ALT of 229/556. The donor was deemed [facility] high risk because of drug use and serologies were positive for HBcAb+/HBV ALEXANDRA+/HCVAb+/HCV ALEXANDRA-. The [facility] high risk form was discussed with the patient including risks of transmission of viral illnesses including HIV, HCV, and HBV. After discussion of the risks and benefits, a high risk consent form was obtained. Dr. Richardson discussed the issue of the HBV ALEXANDRA positivity and need for lifelong HBV therapy as well as the risks associated with HBVand HCV from this donor. He and his family agreed to proceed. He has detectable HBV DNA Ab from immunization so he will not receive HBIg during anhepatic phase. We recovered the liver. We did not biopsy it since it was pristine in appearance. I personally confirmed that the donor ABO was O and the patient was also ABO O prior to implantation in the recipient. Patient was induced with Solu-Medrol. Due to the nature of the liver transplant, this case required two attending surgeons and lack of available help. Dr. Richardson and I performed the surgery as co-surgeons. I will dictate the back bench and hepatectomy. He will dictate the implantation. Procedure: Back bench donor hepatectomy: The organ was examined and verified that it was indeed a blood group organ and was intended for this recipient. This was verified with the operating room team. The liver was then placed in chilled [employer] solution. The edges were not particularly rounded and it appeared to be a suitable graft. The diaphragm was removed from the suprahepatic IVC and dissected free. Phrenic vein branches and the adrenal vein were tied off with 3-0 silk ties and the vena cava was prepared for implantation. Parts of the pericardium were also removed. The portal vein was then dissected from the fibrofatty tissue and dissected away from the hepatic artery to the branches of the left and right portal vein. The portal vein came with its splenic vein and superior mesenteric vein tributaries already still attached. The aortic patch was then prepared. It was a normal anatomy for the hepatic artery except the replaced right hepatic artery. We reconstructed the right artery to the splenic artery with 6-0 prolene making sure alignment was correct. The gastroduodenal artery was tied off. The splenic vein was left open and the fibrous fatty tissue along the artery was dissected off and removed. The liver was flushed with some saline and there were no injuries to the Vasculature. The upper vena cava was sutured closed with 3-0 prolene and the lower vena cava were stapled close with the endo-BRITANY 45 stapler with the vascular load. The posterior vena cava was openedwith scissors for 3.5cm in a longitudinal fashion to make sure we saw the hepatic veins. The liver was then re-immersed in 4 degrees Celsius [employer] solution and prepared for implantation. Hepatectomy:The patient brought to the operating room table. After general endotracheal anesthesia had been achieved, appropriate lines were placed sterilely. Right arm was tucked and left are was left out and the abdomen and chest was prepped and draped in sterile fashion. The right groin was also prepped as well. Timeout was performed and perioperative antibiotics were confirmed as being given. We placed our Valderrama retractors in and then made a Liliana incision with the scalpel. Cautery was used to dissect through the rectus muscle and we entered the abdomen under direct vision. He was very large. The peritoneal cut was then extended along the course of the incision. The Valderrama retractors were then placed and the liver was exposed. It was clearly cirrhotic. There was no evidence of metastatic cancer. The rest of the abdomen was completely normal. The liver was then mobilized by taking down the right and left triangle ligaments. The bare of the liver was taken all the way down to the level of the hepatic veins. There was some oozing off the liver and also from his varices. We then re-adjusted the retractors and turned our attention to the manju hepatis. We made a peritoneal cut across the manju hepatis and identified the cystic duct and cystic artery and divided them with 2-0 silk ties. The right hepatic artery was replaced and passing underneath the bile duct. A left hepatic artery was identified and tied with 2-0 silk ties. The fibrous fatty tissue around the bile duct was then taken down and the bile duct was encircled and divided and tied off with a 2-0 silk tie on the duodenal side and the liver side was oversewn with a 4-0 silk stitch. The fibrofatty tissue along the portal vein was completely opened up and free. We then mobilized the right lobe up and took direct feedingbranches to the IVC with either coagulating device or 2-0 silk ties and completely mobilized the liver from the right to left. After doing this, the right lobe was mobilized, as was the left lobe. The caudate lobe was mobilized off of the inferior vena cava all the way up to the level of the left and middle hepatic veins. The portal vein was divided with an endo-BRITANY stapler.There were some bleeders off the inferior vena cava that were oversewn with a 4-0 Prolene. The right hepatic vein was encircled and stapled off. We did not see the TIPS. The hepatic veins were encircled and stapled off as well with endo-BRITANY stapler. Areas of bleeding from the inferior vena cava on the anterior surface were oversewn. The liver was removed from the field. 3000 units of heparin were given. * Tami Richardson MD - 10/08/2017 3:36 PM EST Patient Name: Leoncio Rollins Date: 1975 Billing #: [id number] Date of Procedure: 10/08/2017 Diagnosis: Chronic Hepatic Failure without coma Procedure: 1. Orthotopic Liver Transplant 2. Back Bench Preparation Donor Liver 3. Backbench preparation of donor liver with arterial reconstruction 3. Dopper ultrasound on liver 4. Liver biopsy Attending surgeons: Surgeon(s) and Role: * David Mendenhall MD - Co-Surgeon * Tami Richardson MD - Co-Surgeon Brief Writer Surgeon(s): Raissa Hi MD Findings: Whole organ placed in piggyback fashion with 4cm cavo-cavostomy in side to side fashion for IVC anastomosis. Ojld-ot-riuc anastomosis performed without stent. This liver came from a 33 yearold brain donor who was HBV ALEXANDRA positive and HCV antibody positive; Hep C ALEXANDRA negative. Flows post reperfusion was 220 in RHA with PI of 1.8; 148 in LHA with PI of 3. Portal vein with flow of 1.2 liters with PI of1 Anesthesia: GETA Blood/Fluid Products: Allogenic PRBC units: 2 Autologous Cell Saver: 1300 FFP:5 Platelets:1 Cold Ischemic Time: 6 hours and 19 minutes Warm Ischemic Time: 30 min Operative Times: Cross clamp on donor: 10/08/17 4:03 Incision on recipient: 10/08/17 9:03 Liver taken out of ice: 10/08/17 10:22 Liver reperfused:10/08/17 10:52 All incisions closed:10/08/17 12:33 ?? Indications for Procedure: 42 y.o. with cirrhosis presumed secondary to non- alcoholic fatty liver disease. He is listed for transplantation at and is presenting for dual-listing. He decompensated in 2017with massive variceal bleed and had TIPS placement. He also developed encephalopathy. Co morbidities include DM, for which he takes insulin. The patient also has significant muscle wasting, failure to thrive, and fatigue. Earlier today a donor organ became available. This donor was [id number], Match Run [id number] from [facility]. This was a 33 year old donorwho was brain from anoxia of drug overdose. Liver function tests were normal except for AST/ALT of 229/556. The donor was deemed [facility] high risk because of drug use and serologies were positive for HBcAb+/HBV ALEXANDRA+/HCVAb+/HCV ALEXANDRA-. The [facility] high risk form was discussed with the patient including risks of transmission of viral illnesses including HIV, HCV, and HBV. After discussion of the risks and benefits, a high risk consent form was obtained. I discussed the issue of the HBV ALEXANDRA positivity and need for lifelong HBV therapy as well as the risks associated with HBV and HCV from this donor. He and his family agreed to proceed. He has detectable HBV DNA Ab from immunization so he will not receive HBIg during anhepatic phase. We recovered the liver. I personally confirmed that the donor ABO was O and the patient was also ABO O prior to implantation in the recipient. Patient was induced with Solu-Medrol. Due to the nature of the liver transplant, this case required two attending surgeons and lack of available help. Dr. Mendenhall and I performed the surgery as co-surgeons. Dr. Mendenhall will dictate the hepatectomy and backbench of the liver. I will dictate the Implantation and the rest of theprocedures. Procedure: Liver Transplant Implantation: The liver was then brought to the field. A long Satinsky clamp was placed on the vena cava preserving >50% of the IVC. A longitudinal incision was made of about 4cm and flushed with heparinized saline. Stay sutures were placed in recipient cava and held open. Then in a side to side fashion, a cavo-cavostomy was performed. This was done with a 4-0 Prolene in a running fashion. The portal vein was then flushed with heparinized saline. The portal vein was then anastomosed to the recipient portal vein. We flushed the portal vein and the flow was strong and adequate. No sentinel clot was evacuated. We made sure to keep the alignment perfect. This was done with a 6-0 Prolene in a running fashion. A growth factor was left. The hepatic artery was thenreconstructed. We dissected the left hepatic artery back to the bifurcation of the left and right. This bifurcation was used to perform a hepatic artery to hepatic artery anastomosis with 6-0 Prolene. This was done in a running fashion. Patient received normal anhepatic agents such as bicarbonate, calcium and mannitol. After the clamps were removed the patient tolerated the procedure well. The liver reperfused quite nicely. Areas of bleeding were then controlled along the diaphragm and the right retroperitoneum. Reperfusion was complete without incident. There was a good thrill and a good bruit and pulse after the clamps were removed.The splenic artery was tied off after using it for flush. I used a Doppler to confirm flow in the artery and the left side as well. We then used the Doppler to make sure there was flow in the liver itself. After making sure there was no further bleeding, we then performed a vwtk-ga-cbkj anastomosis. There was no stent placed. This was done by keeping the edges aligned and performing a running 6-0 Maxon biliary anastomosis. After doing this, we then further examined for further bleeding. A MINE drain was left over the liver. Another MINE drain was left underneath the portal triad. The patient was oozy and a bit coagulopathic from liver dysfunction. A liver biopsy was taken of the liver and handed off the table as a specimen since the liver was from a Hep B ALEXANDRA positive donor. At the end of the case, the liver appeared to be reperfused quite nicely. [place] were applied for the skin. The fascia was then closed with #1 PDS and the skin was closed with raheel. The patient was left intubated and sent to the recovery room in stable condition. Sponge and needle counts were correct x 2. Wand was negative for sponges or ray-tecs. I was present for the entire procedure. * Karishma Loaiza MD - 10/08/2017 1:14 PM EST TRANSPLANT LIVER Procedure Note Leoncio Rollins 10/08/2017 Pre-op Diagnosis: ESLD Post-op Diagnosis: same Procedure(s): TRANSPLANT LIVER Rt replaced hepatic artery reconstruction on back bench Surgeon(s): MD Tami Xie MD Anesthesia: General Staff: Oil Processing Technician: Rupesh Crespo RN; Maria Alejandra Rowell RN; Edwina Barnes RN Relief Oil Processing Technician: Ondina Law RN Scrub Person: ST Francisca; Edgar Javier RN Fellow: Karishma Loaiza MD Estimated Blood Loss: 2800 cc Specimens: Specimens ID Description Commments Type Source Tests Collected By Collected At [facility] [place] liver Tissue Liver ?? SURGICAL PATHOLOGY EXAM David Mendenhall MD 10/08/17 1028 B recipient gallbladder Recipient gallbladder Tissue Gall Bladder ?? SURGICAL PATHOLOGY EXAM David Mendenhall MD 10/08/17 1133 C liver biopsy Liver biopsy Tissue Liver ?? SURGICAL PATHOLOGY EXAM David Mendenhall MD 10/08/17 1135 Drains: Drain 1 Liver Abdomen Right (Active) Number of days: 0 Drain 2 Liver Abdomen Right (Active) Number of days: 0 IUC (Anders) Straight-tip 16 Fr. (Active) Number of days: 0 There were no complications unless listed below. Karishma Loaiza Date: 10/08/2017 Time: 1:14 PM documented in this encounter Consult Notes * Consuelo Lopez RN - 10/27/2017 1:45 PM EDTAssociated Order(s): IP CONSULT TO SPREADER OPERATOR AUT[employer] [facility] Transplant Discharge Education Note Assessment: Received referral for education from primary team. Pt is s/p liver transplant. RN met with pt and at bedside to educate on Blood Glucose monitoring prior to discharge, as well as, Humalog and Humulin N insulin therapy. Educational Intervention: Reviewed and provided Pt with written educational materials covering the following topics: relationship between illness/stress/steroids and glucose levels, signs/symptoms and treatment of hyper/hypoglycemia, how and when to test with glucometer, insulin types and rationalefor use, how to dial and inject insulin using insulin pens, importance of eating meal within 15 minutes of administering fast acting insulin, current insulin regimen, and sick day guidelines/when to call team. Pt and attentive during education and have prior experience with insulin pen administ ration. RN educated pt and on appropriate insulin administration sites. Educated on normal BG values, when to test, and how to record BG values. Pt was instructed on how and when to test with One Touch Verio glucose meter. Pt did well with skills and properly return demonstrated how to perform a BG check. Discharge Regimen: Humulin N 40 Units QAM Humulin N 15 Units QPM Humalog High Correction AC Blood Glucose Checks AC and HS Provided pt with written insulin regimen for reference. Education Outcome: 4 - Demonstrates understanding/competency Pt verbalized understanding of information discussed. Pt proficient with glucometer skills and ableto safely administer insulin pens . Power Originator answered all questions. Pt's family picked upNPH Humulin N insulin Kwikpens from [facility] and placed in refrigerator at home. Pt's One Touch Verio Meter also at home. Consuelo Lopez RN, BSN Diabetes Education Office [phone] Schedule: M-F 8:00am-4:30pm * Laurence Craig MD - 10/25/2017 6:14 PM EDT PULMONOLOGY CONSULT SERVICE Follow-up CONSULT NOTE Requesting Physician: David Mendenhall MD Reason for Consult/Chief Complaint: Persistent hypoxia Subjective: Wants to go home. Breathing feeling better. Still feeling swollen. More awake and alert today. Review of Systems: - = not present; + = present GENERAL: -fever, -chills, -fatigue, -unintentional weight loss EYE: -visual change, -redness, -discharge ENT: -nasal congestion, -facial pain, -sore throat CARDIOVASCULAR: -chest pain, -palpitations, -edema, -orthopnea, -PND LUNG: -cough, -dyspnea at rest, -dyspnea on exertion, -hemoptysis GI: -abdominal pain, -N/V, -diarrhea, -constipation, -melena : -hematuria, -dysuria MSK: -no joint pain, -muscle pain SKIN: -rash, -lesion, -skin color change HEMATOLOGIC: -no bleeding disorders, -swollen glands NEURO: -headache, -dizziness, +weakness/fatigue, -numbness PSYCH: -anxiety, -depression Physical Exam: Temp: [98 ??F (36.7 ??C)-98.9 ??F (37.2 ??C)] 98 ??F (36.7 ??C) Heart Rate: [71-88] 79 Resp: [16] 16 BP: (133-157)/(64-91) 157/84 GENERAL - Patient AAOx4 in no acute distress, obese, well-appearing HEENT - EOMI, PERRL, no scleral icterus. Oral mucosa pink and dry NECK - Supple. No lymphadenopathy. No thyroid nodules or masses. No JVD. CARDIOVASCULAR - RR, no murmur/rubs/gallops. LUNGS - CTA bilaterally, good breath sounds. No wheezes or crackles appreciated on exam CHEST WALL - No asymmetry, no chest wall tenderness, no spider angiomata ABDOMEN - Soft, non-tender, non-distended. Normal BS. Large fresh abdominal incision. Clean and dry. SKIN - No suspicious rashes or lesions. Normal skin turgor, no palmar erythema EXTREMITIES - 2+ lower extremity edema, pulses are 2+ bilaterally and symmetric NEURO - tremulous, myoclonus-like activity in all extremities at rest and worsened by intention; otherwise, alert, oriented to self/place/time/situation, with motor, sensory and CN systems grossly intact Labs: Lab Results Component Value Date BUN 61 (H) 10/25/2017 CREATININE 1.63 (H) 10/25/2017 K 4.9 10/25/2017 BCR 13 05/31/2017 PHOS 4.8 (H) 10/25/2017 ALBUMIN 3.0 (L) 10/25/2017 ALBUMIN 3.0 (L) 10/25/2017 EGFR 56 05/31/2017 Lab Results Component Value Date MG 1.8 10/25/2017 Lab Results Component Value Date WBC 7.9 10/25/2017 HGB 7.5 (L) 10/25/2017 HCT 22.8 (L) 10/25/2017 PLT 263 10/25/2017 Lab Results Component Value Date CHOLTOT 86 08/21/2017 TRIG 187 (H) 10/08/2017 HDL 26 (L) 08/21/2017 LDL 41 08/21/2017 EKG (10/19/2017): NSR, HR = 84, nonspecific ST changes, infrequent PVCs. QTc = 447 PFTs: none available, possibly from [facility] if done before CXR (10/19/17): Read as possible PNA, on re-evaluation, thought to be related to rotated view with cardiomegaly; no significant opacities appreciated that were highly suggestive of PNA just from this image Chest CT (10/20/17): Multiple areas of opacities that are likely due to atelectasis, no pleural effusions or pulmonary edema, ASSESSMENT AND PLAN: Leoncio Rollins is a 42 y.o. male, seen by pulmonology service for hypoxia. Pulmonary problems being addressed by the consult service are: #. Hypoxia: Multifactorial: Atelectasis, pulmonary venous congestion contributing, PE has been ruled out, and JC all likely contributing. Had evidence of intrapulmonary shunt prior to transplant on prior echo, most recent echo with bubbles does not show any evidence of intrapulmonary shunt. - Atalectasis: last chest CT demonstrated multiple areas of likely atelectasis - Pulmonary venous congestion: Still likely volume overloaded from exam, recommend diuresis as renal function allows. - May be a component of hypoventilation related to his pain regimen contributing further to atelectasis. - Evidence of volume overload on echo as well performed on 10/10. Echo prior to transplant did have evidence of intrapulmonary shunt, however most recent echo was without evidence of shunt. Otherwise normal RV size and function and PA pressures on echo prior to transplantation. - V/Q scan and LE dopplers negative. Plan: - Continue to encourage good pulmonary hygiene, including getting up and out of bed more frequently, using IS at least 2-3x's/hour, ambulating as much as he can tolerate - Can diurese as kidney function allows - Optimize pain medication regimen, as below #. Snoring, daytime somnolence and fatigue, morning headaches: Most likely has Obstructive sleep apnea. - Sleep study results from [facility] revealed that he has isolated REM onset sleep apnea. AHI in REM was 20, while his overall AHI was only 3.1. Plan: - He would like to go to [place] for his split night sleep study. He states they perform sleep study through the hospital. Will need to be set up to get his sleep study there by primary team. Would need split night sleep study for cpap titration for REM onset sleep apnea. Risks and benefits of new therapies added and new invasive and non-invasive procedures/diagnostic testing planned discussed with and understood by the patient/family who agree with the above plan. Inaddition, patient was discussed with the attending, Dr Mckeon, who is in agreement with the plan and r ecommendations above. Thank you for allowing us to participate in the care of this most interesting patient. Please call with any questions. Laurence Craig MD Pulm/CC fellow [phone] 10/25/2017 6:14 PM Cosigned by Amanda Mckeon DO at 10/26/2017 1:06 PM EDT Associated attestation - Amanda Mckeon DO - 10/26/2017 1:06 PM EDT PULMONARY ATTENDING NOTE I saw, examined and discussed Leoncio Rollins on Pulmonary Consults with Forklift Wheel Loader/resident 10/25/17 Labs, Xrays and pertinent studies were reviewed. See the fellow/resident's note(s) for details.I agree with the pertinent findings and plans as documented in the Fellow/resident's note. 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 . Post Liver Txp, Chronic immunosuppression Hypoxemia multifactorial: Fluid overload: + 30 lbs from baseline, post-op bibasilar atelectasis, morbid obestiy. No further evidence of intrapulmonary shunt on ECHO 10/10/17 Mr. Rollins sitting up in chair. S/P diuresis w/ IV lasix since Monday. Off O2. RA sat 95%. No dyspnea complaints at resting. Reports good UOP response to lasix. UOP 2.7L over past 24 hours. Overall, -6.2L --->-8.4L since 10/23. Exam still w/ +2LE edema/abdominal/sacral edema. Standing wt 283 lb; decrease 4 lb since 10/21. Baseline wt 250 lb per patient. No worsening Cr w/ diuresis: 2.15 10/22--> 1.63. V/Q scan did not reveal any evidence of acute or chronic PE's Have obtained and reviewed results of Prior Sleep study at [facility] in [place]. Study revealed no JC during non-REM sleep: Apnea-Hypopnea index at 3.1. Does have significant isolated REM onset sleep apnea: AHI = 20. Lowest O2 sat 86%. PLAN: Cont to monitor O2: Maintain O2 sat >/= 89% rest, exertion, HS Exercise oximetry prior to discharge; on RA Fluid overload: Recommend continue to diurese as tolerated. Still + 30 lb Recommend dietary restriction: 2L fluid/ 2 gram Na Pain management: Minimize sedating meds to minimize atelectasis and worsen nocturnal hypoventilation/apnea. Incentive spirometry Increase activity as tolerated; increase interval up in chair as doing REM-onset sleep apnea: Has not had a CPAP titration for Tx. Do recommend that he receives tx for this. Will need Sleep Study/CPAP titration. [place]ishes to have [place] done at [facility] [place] and to f/u w/ [facility] sleep program. Recommend contacting sleep center prior to discharge to expeditearrangements for study/sleep f/u. Post Txp/Chronic immunosuppression per Liver Txp Please call Pulmonary if any further questions arise. Amanda Mckeon DO [phone] * Laurence Craig MD - 10/23/2017 4:33 PM EDT PULMONOLOGY CONSULT SERVICE INITIAL CONSULT NOTE Requesting Physician: David Mendenhall MD Reason for Consult/Chief Complaint: Persistent hypoxia History of Presenting Illness: Leoncio Rollins is a 42 y.o. 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 We are consulted for any further recommendations related to this issue. He has not had an oxygen requirement prior to his transplant procedure, but would get SoB with exertion. Since his surgery, he has tried to get up and out of bed but has been having difficulty with doing that more than once per day,especially recently. He will walk for perhaps an hour at a time around the daniel, and he will sit upin his chair intermittently, but will also lay in bed for a good portion of the day. He does get fatigued a bit easily as well. He has not noticed any shortness of breath recently, and he denies cough, wheezing, palpitations, chest pain, chest pressure/discomfort, exertional chest pressure/discomfort, and tachypnea. He has not had any calf pain. He does endorse some sensation of feeling puffy , and he has had a dry mouth. He and his talked about his snoring, saying that it can get loud. He used to get poor-quality sleep with headaches in the morning as well. They were concerned about trying to get a sleep study while he was in the hospital. Past Medical History: SAL cirrhosis c/b esophageal varices, ascites, and hepatic encephalopathy in the past, now s/p transplant Liver transplant (OLT, on 10/08/17) Acute pancreatitis DM GERD HTN Home Medications: Carvedilol 25 mg po BID Gabapentin 600 mg po TID Tizanidine 0.5 mg po qhs, prn for muscle spasms Current Inpatient Medications: ASA 81 mg po daily Carvedilol 37.5 mg po daily Clonidine 0.1 mg po bid Cyclosporine 150 mg po bid7 Entecavir 1 mg po daily Gabapentin 600 mg po tid Melatonin 3 mg po qhs INS: lispro 0-12, 15; NPH Cellcept 500 mg po bid Nystatin Protonix 40 mg po daily Prednisone 20 --> 15 mg po daily Bactrim 400-80 mg po daily Valganciclovir 900 mg po daily Allergies: Allergies Allergen Reactions ??? Codeine ??? Dilaudid [Hydromorphone] Other (See Comments) Hallucinations ??? Flexeril [Cyclobenzaprine] Family History: Lung disease - none Lung cancer - none Other cancer - none Social History: Tobacco - never smoker Alcohol - denies Illicit drug use - denies Review of Systems: - = not present; + = present GENERAL: -fever, -chills, -fatigue, -unintentional weight loss EYE: -visual change, -redness, -discharge ENT: -nasal congestion, -facial pain, -sore throat CARDIOVASCULAR: -chest pain, -palpitations, -edema, -orthopnea, -PND LUNG: -cough, -dyspnea at rest, -dyspnea on exertion, -hemoptysis GI: -abdominal pain, -N/V, -diarrhea, -constipation, -melena : -hematuria, -dysuria MSK: -no joint pain, -muscle pain SKIN: -rash, -lesion, -skin color change HEMATOLOGIC: -no bleeding disorders, -swollen glands NEURO: -headache, -dizziness, +weakness/fatigue, -numbness PSYCH: -anxiety, -depression Physical Exam: Temp: [98.2 ??F (36.8 ??C)-101.6 ??F (38.7 ??C)] 98.4 ??F (36.9 ??C) Heart Rate: [52-94] 78 Resp: [16-18] 18 BP: (136-153)/(76-92) 136/76 GENERAL - Patient AAOx4 in no acute distress, obese, well-appearing HEENT - EOMI, PERRL, no scleral icterus. Oral mucosa pink and dry NECK - Supple. No lymphadenopathy. No thyroid nodules or masses. No JVD. CARDIOVASCULAR - RR, no murmur/rubs/gallops. LUNGS - CTA bilaterally, good breath sounds. No wheezes or crackles appreciated on exam CHEST WALL - No asymmetry, no chest wall tenderness, no spider angiomata ABDOMEN - Soft, non-tender, non-distended. Normal BS. GENITOURINARY - No bladder fullness SKIN - No suspicious rashes or lesions. Normal skin turgor, no palmar erythema EXTREMITIES - No lower extremity edema, pulses are 2+ bilaterally and symmetric NEURO - tremulous, myoclonus-like activity in all extremities at rest and worsened by intention; otherwise, alert, oriented to self/place/time/situation, with motor, sensory and CN systems grossly intact Labs: Lab Results Component Value Date BUN 66 (H) 10/23/2017 CREATININE 1.91 (H) 10/23/2017 K 4.7 10/23/2017 BCR 13 05/31/2017 PHOS 3.9 10/23/2017 ALBUMIN 3.0 (L) 10/23/2017 ALBUMIN 3.0 (L) 10/23/2017 EGFR 56 05/31/2017 Lab Results Component Value Date MG 2.2 10/23/2017 Lab Results Component Value Date WBC 8.4 10/23/2017 HGB 7.7 (L) 10/23/2017 HCT 23.1 (L) 10/23/2017 PLT 247 10/23/2017 Lab Results Component Value Date CHOLTOT 86 08/21/2017 TRIG 187 (H) 10/08/2017 HDL 26 (L) 08/21/2017 LDL 41 08/21/2017 EKG (10/19/2017): NSR, HR = 84, nonspecific ST changes, infrequent PVCs. QTc = 447 PFTs: none available, possibly from if done before CXR (10/19/17): Read as possible PNA, on re-evaluation, thought to be related to rotated view with cardiomegaly; no significant opacities appreciated that were highly suggestive of PNA just from this image Chest CT (10/20/17): Multiple areas of opacities that are likely due to atelectasis, no pleural effusions or pulmonary edema, ASSESSMENT AND PLAN: Leoncio Rollins is a 42 y.o. male, seen by pulmonology service for hypoxia. Pulmonary problems being addressed by the consult service are: #. Hypoxia: Multifactorial: Atelectasis, pulmonary venous congestion contributing, cannot rule out possible PE, and JC all likely contributing. Had evidence of intrapulmonary shunt prior to transplant on prior echo, most recent echo with bubbles does not show any evidence of intrapulmonary shunt. - there were multiple episodes on CMU that were reviewed to by inaccurate due to poor Pleth, but real episodes were significant and not limited to nocturnal setting - Atalectasis: last chest CT demonstrated multiple areas of likely atelectasis - Pulmonary venous congestion: Still likely volume overloaded from exam, recommend diuresis as renal function allows. - May be a component of hypoventilation related to his pain regimen contributing further to atelectasis. - Evidence of volume overload on echo as well performed on 10/10. Echo prior to transplant did have evidence of intrapulmonary shunt, however most recent echo was without evidence of shunt. Otherwise normal RV size and function and PA pressures on echo prior to transplantation. Plan: - We recommend a VQ scan to r/o PE in the setting of persistent hypoxia in the post-op setting in high risk patient with recent liver transplant with limited ambulation. - Continue to encourage good pulmonary hygiene, including getting up and out of bed more frequently, using IS at least 2-3x's/hour, ambulating as much as he can tolerate - Can diurese as kidney function allows - Optimize pain medication regimen, as below #. Snoring, daytime somnolence and fatigue, morning headaches: Most likely has Obstructive sleep apnea. - Higher risk for obstructive sleep apnea given his symptoms, which could account for nighttime hypoxic events that are recorded on CMU Plan: - We will coordinate a sleep study as an outpatient with outpatient pulmonary medicine f/u afterward. Will order sleep study now, can f/u with sleep clinic after sleep study performed. Risks and benefits of new therapies added and new invasive and non-invasive procedures/diagnostic testing planned discussed with and understood by the patient/family who agree with the above plan. Inaddition, patient was discussed with the attending, Dr Mckeon, who is in agreement with the plan and r ecommendations above. Thank you for allowing us to participate in the care of this most interesting patient. Please call with any questions. ELY BECERRA, MS4 10/23/2017 4:34 PM I have personally interviewed and examined patient, independently reviewed diagnostic studies and lab work and edited where appropriate. Laurence Craig MD Pulm/CC fellow Cosigned by Amanda Mckeon DO at 10/24/2017 2:56 PM EDT Associated attestation - Amanda Mckeon DO - 10/24/2017 2:56 PM EDT PULMONARY ATTENDING NOTE I saw, examined and discussed Leoncio Rollins on Pulmonary Consults with Forklift Wheel Loader/resident 10/23/17. Labs, Xrays and pertinent studies were reviewed. See the fellow/resident's note(s) for details. I agree with the pertinent findings and plans as documented in the Fellow/resident's note. Amanda Mckeon DO [phone] * Arti Triplett MD - 10/20/2017 9:48 AM ESTAssociated Order(s): IP CONSULT TO INFECTIOUS DISEASES [facility] DEPARTMENT OF INFECTIOUS DISEASE CONSULT NOTE Referring Physician: David Mendenhall MD Consult Attending: Elizabeth Patient: Leoncio Rollins CSN: [id number] Reason for Consult: Fevers History of Present Illness Leoncio Rollins is a 42 y.o. male s\p OLT on 10/08/2017 CMV D+/R-,EBV R+, Donor hepatitis C + and hep Bcore positive . Post operative course complicated by altered mental status which now has resolved. Most recently had developed clonus of upper and lower extremities and yesterday had a fever up to 101.8 . Currently patient does not have shortness of breath, vomiting, no abdominal pain, no diarrhea,no dysuria. He endorses some frontal headaches and lower back pain which is not new and had before surgery. Currently on 2 L of O2 , his oxygen saturation drops as soon as he comes off oxygen. CXR does not appear impressive for pneumonia. He has not been febrile since yesterday. Past Medical History Past Medical History: Diagnosis [...] TRANSPLANTATION N/A 10/08/2017 Procedure: TRANSPLANT LIVER; Surgeon: David Mendenhall MD; Location: [facility]; Service: Transplant; Laterality: N/A; ??? TIPS [...] Medications Allergies: Allergies Allergen Reactions ??? Codeine ??? Dilaudid [Hydromorphone] Other (See Comments) Hallucinations ??? Flexeril [Cyclobenzaprine] Home Meds: Current Discharge Medication List CONTINUE these medications which have NOT CHANGED Details carvedilol (COREG) 25 MG tablet Take 25 mg by mouth 2 times a day with meals. gabapentin (NEURONTIN) 600 MG tablet Take 600 mg by mouth 3 times a day. tiZANidine (ZANAFLEX) 4 MG capsule Take 0.5 mg by mouth at bedtime as needed for Muscle spasms. Inpatient Meds: Scheduled: ??? aspirin 81 mg Oral Daily with breakfast ??? carvedilol 37.5 mg Oral BID ??? cloNIDine HCl 0.1 mg Oral BID ??? entecavir 1 mg Oral DAILY 0600 ??? gabapentin 600 mg Oral TID ??? heparin (porcine) 5,000 Units Subcutaneous 3 times per day ??? insulin lispro 0-10 Units Subcutaneous Nightly (2099) ??? insulin lispro 0-12 Units Subcutaneous TID AC ??? insulin lispro 5 Units Subcutaneous TID WC ??? insulin NPH 30 Units Subcutaneous Nightly (2099) And ??? insulin NPH 65 Units Subcutaneous QAM ??? melatonin 3 mg Oral Nightly (2099) ??? mycophenolate 500 mg Oral BID ? ? nystatin 500,000 Units Swish & Swallow TID ??? pantoprazole 40 mg Oral DAILY 06 ??? predniSONE 20 mg Oral Daily 899 ??? sulfamethoxazole-trimethoprim 1 tablet Oral Daily 899 ??? valGANciclovir 900 mg Oral Daily 899 Continuous: PRN:All IV Medications in Normal Saline 0.9%, dextrose 50 % in water (D50W), glucose, ondansetron, oxyCODONE OR oxyCODONE, traMADol OR traMADol Review of Systems GEN: Fever, no chills, sweats, involuntary weight loss or gain SKIN: Denies rashes or lesions HEENT: Denies headaches, earache, throat pain, odynophagia, change in vision, nasal congestion, rhinorrhea. CV: Denies chest pain, palpitations or leg edema RESP: Denies SOB, cough, or wheezing GI: Denies nausea, vomiting, diarrhea, constipation or abdominal pain : Denies dysuria, urgency, frequency or incontinence MS: Denies arthralgias or myalgias NEURO: complains of headaches HEM/Lymph: Denies swollen lymph nodes, weakness Vital Signs Temp: [98.5 ??F (36.9 ??C)-101.8 ??F (38.8 ??C)] 98.6 ??F (37 ??C) Heart Rate: [84-106] 91 Resp: [16-24] 18 BP: (93-152)/(45-117) 141/65 Intake/Output Summary (Last 24 hours) at 10/20/17 0948 Last data filed at 10/20/17 0747 Gross per 24 hour Intake 20 ml Output 500 ml Net -480 ml Physical Exam GEN: Well developed, well nourished man in no acute distress HEENT: Normocephalic, atraumatic, EOMI, Conjunctivae pink, no scleral icterus Neck: Supple LUNGS: Clear to auscultation and percussion CV: Regular S1, S2 without murmurs ABD: Soft without tenderness . Surgical incisions appear well healed, no signs of infection. Lymph Nodes: No cervical, axillary or inquinal adenopathy EXT: No clubbing, cyanosis. Edema+2. No muscle tenderness or joint deformities NEURO: Alert and oriented x 4; No meningeal signs. Tremors in upper > lower extremities. SKIN: Warm and dry without rashes Laboratory Data Lab name 10/17/17 0647 10/18/17 0732 10/19/17 0604 10/20/17 0632 WBC 5.6 7.5 5.9 9.2 HEMOGLOBIN 7.1* 7.2* 6.4* 7.2* HEMATOCRIT 20.9* 20.7* 18.7* 21.4* MEAN CORPUSCULAR VOLUME 102.9* 103.0* 103.9* 101.9* PLATELETS 152 189 182 171 Lab name 10/17/17 0647 10/18/17 0732 10/19/17 0604 10/20/17 0632 SODIUM 141 140 139 138 POTASSIUM 3.6 3.7 3.6 4.6 CHLORIDE 105 103 102 101 CO2 30 32 30 29 BUN 47* 50* 54* 62* CREATININE 1.43* 1.56* 1.77* 2.24* GLUCOSE 103* 110* 106* 129* CALCIUM 8.3* 8.6 8.6 8.4* MAGNESIUM 1.9 2.0 2.1 1.9 PHOSPHORUS 3.3 4.8* 5.0* 5.3* Lab name 10/09/17 0642 10/09/17 1408 10/10/17 0158 10/10/17 1253 INR 1.4* 1.3* 1.3* 1.3* PROTHROMBIN TIME 17.4* 16.3* 16.5* 16.1* Lab name 10/17/17 0647 10/18/17 0732 10/19/17 0604 10/20/17 0632 ALT 74* 59* 46 35 AST 23 20 15 14 ALK PHOS 63 59 61 61 BILIRUBIN TOTAL 0.8 0.8 0.7 0.8 BILIRUBIN DIRECT 0.29 0.28 0.36 0.31 ALBUMIN 2.5* 2.5* 2.6* 2.6* 2.6* 2.6* 2.5* 2.5* Lab name 10/10/17 1003 10/19/17 1249 COLOR, URINE Yellow Yellow CLARITY Clear Clear PROTEIN UA 100* Negative PH UA 5.0 5.0 SPECIFIC GRAVITY, URINE 1.028 1.015 GLUCOSE UA Negative Negative BLOOD UA Small* Negative LEUKOCYTES UA Negative Negative NITRITE UA Negative Negative BILIRUBIN UA Negative Negative UROBILINOGEN UA <2.0 2.0* Microbiology results: Culture Result Date/Time Value Ref Range Status 10/19/2017 01:10 PM No Growth To Date Incomplete Assessment & Plan Leoncio Rollins is a 42 y.o. male s\p 10/08/2017 CMV D+/R-,EBV R+, Donor hepatitis C + and hep B core positive . Fevers in Transplant recipient - Recommend MRSA nares swab and respiratory viral panel. Patient becoming hypoxemic when off oxygen. - Do not recommend antibiotic therapy at this point. We will wait for results of CT chest -abdomen and pelvis - If patient decompensates or becomes febrile again will consider lumbar puncture. In case lumbar puncture needs to be performed will need cell counts, chemistry, HSV and VZV PCR, please keep rest ofCSF fluid for further testing. Prophylaxis CMV high risk. Will need valcyte for 6 months Bactrim 6 months Entecavir for hepatitis B Switch nystatin to Fluconazole X 1 month when feasible. Signed: ARTI TRIPLETT MD 10/20/2017, 9:48 AM Cosigned by Dav Johnson MD at 10/20/2017 10:59 AM EST Associated attestation - Dav Johnson MD - 10/20/2017 10:59 AM EST Infectious Disease Attending Note Leoncio Rollins was seen with Dr Mcknight. I personally interviewed and examined the patient. I reviewedthe documentation by Dr Mcknight and agree as documented. Reason for today's visit: fever Past medical, family, and social histories reviewed as previously documented. Assessment & Plan Leoncio Rollins is a 42 y.o. male. The medical issues being addressed in today's encounter are as follows: 1. Fever, altered mental status, hypoxia - 1 time fever of unclear etiology - would send MRSA nares swab and RVP - hold abx for now pending results of CT C/A/P - if recurrent fevers, worsening mental status, consider LP with cell count, bacterial cx, Crypto Ag, HSV PCR and hold additional fluid in case further testing needed (considering donor derived) - could mental status and myoclonus all be Prograf? Agree with holding for now 2. 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 Patient was referred to psychology by the transplant team. This was this telegraphic typewriter operator chief's first visit with this patient. Patient's , Kym, was also present for this visit. The role of psychologist within the transplant teamwas discussed. Patient verbalized understanding. Mental Status: Patient was AAOx4 throughout this visit, sitting up in chair at bedside. Eye contact was good. Speech was normal. Patient was tangential throughout, somewhat disinhibited. He offered required confirmation from his regarding details of what he was discussing. Patient briefly reviewed his medical history leading up to transplant on 10/08. Again, he required assistance from his in order to provide accurate details, but generally recall was appropriate. Patient and noted that he experienced episodes of HE pre-transplant. He reported that mood has been generally stable. He states that he is happy with the care that he has received, and denied any recent conflict with care providers. Reviewed placement recommendations. Patient stated that he does not want to discharge to a facility, but is willing to do so if the team thinks that this is best for him. He and his have identified a facility close to their home that he would like to pursue. Inpatient social work is following closely. Patient and did endorse some financial strain, and requested information on any financial support that they could obtain post-transplant. Assessment and Plan: Patient is a 42-year old male, day +9 following OLT. Post-transplant recovery has been complicated by AMS. Mental status appears to be improving, but patient is likely not completely back to his cognitive baseline at this time (possible residual HE), as he struggled to provide a detailed history, and presented as tangential and somewhat disinhibited on this date, which has likely contributed to comments that have been made to staff in recent days regarding his care. It is expected that his mental status will continue to normalize over the coming days, and when he returns home. Patient and were provided contact information for this telegraphic typewriter operator chief for any ongoing needs. Psychology will continue to follow as needed. Salima Minor PsyD [phone] * Annie Reyna RN - 10/14/2017 2:46 PM ESTAssociated Order(s): IP CONSULT TO PICC TEAM Midline placed lue. * Grace Martins RD - 10/14/2017 7:17 AM ESTAssociated Order(s): IP CONSULT TO NUTRITION SERVICES Nutrition Brief Note: RD consult received for initiation of TF. Please see nutrition follow up note written yesterday by Madelyn Kwok for details. Additional Recommendation(s) to Physicians: 1. Consider cycle feeds of Diabetisource AC @ 85ml/hr x 12 hours to meet 60% of the patient's nutritional needs (1224kcals, 60g protein, 100g CHO, 816ml free water) 2. If pt is able to consistently demonstrate increasing PO intake and improving ability to meet hisnutritional needs would be ok to d/c feeding tube and trial pt without EN. 3. Continue current diet + supplements 4. Add Boost Pudding TID 5. Continue calorie counts to monitor PO intake. Please ensure all meals and snacks are accurately recorded. Grace Martins RD, LD, [facility] pager # [phone] * RADHA Nielsen, PARTY DEMONSTRATOR - 10/12/2017 1:03 PM EST [facility] Post-Liver Transplant Laundry Machine Tender Psychosocial Assessment Leoncio Rollins [id number] 42 y.o. male White or Marital Status: S/P liver transplant (HCC) [Z94.4] Referred by: Liver Transplant Surgery Multidisciplinary Team Referred Reason: Post-Liver TransplantPsy/Soc Assessment History Past Medical History: Diagnosis Date ??? Acute pancreatitis ??? Ascites ??? Diabetes mellitus (HCC) ??? Esophageal varices with bleeding (HCC) ??? GERD (gastroesophageal reflux disease) ??? Hepatic encephalopathy (HCC) ??? Hypertension ??? 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 Vitamin D deficiency History Drug Use No History Alcohol Use No Mental Health History: none reported or documented Mental Status Current Mental Status: Awake, Oriented to Person, Confused Activities of Daily Living: Partial Assistance Needed Current Living Arrangements Current Living Arrangements: With Family Type of Living Arrangement: Home/Apartment One Story or Two (check all that apply): One Story Support Systems Next of Kin/Stripper Color: Kym Rollins Next of Kin Relationship: Spouse Next of Kin Next of Kin/Stripper Color: Adonis Rollins/mother of patient -[phone] Community Resources Used Prior to Admission: No Cultural/Spiritual/Language Barriers [facility] Other Pertinent Data Multimedia Coordinator for Mental Health IssuesPrior to Admission: No Durable Medical Equipment Prior to Admission: [place]/number of PCP: Dr. Ibrahima Fournier Assessment/Plan Per H&P documentation: ( Leoncio Rollins is a 42 y.o. male with a PMHx significant for ESLD w/ cirrhosis secodary to SAL, HTN, IDDM, GERD, and obesity presenting to the hospital in anticipation of orthotopic liver transplantation. He was recently second listed to [facility] medical system from . His cirrhosis previously decompensated in 09/2016 with massive variceal bleed and placement of TIPS. His l iver disease is complicated by encephalopathy, which is treated with xifaxan and lactulose.) Laundry Machine Tender/Financial Services Representative met with post-liver transplant patient at bedside for post liver transplant psy/soc assessment. SW introduced self, explained role, and verified demographics. Patient'sspouse was at bedside and was able to provide majority of information during the assessment. Patient continues to be observed to have some confusion at this time. Patient is 42 year old male, to Kym Rollins. Patient shares 3 children with his spouse. Patient's spouse reports children are 25, 21, and 18 years of age. Patient is not currently working and has been unable to work for several months as a result of his medical condition. Kym and patient agree he hopes to work again following full recovery from liver transplant surgery. Patient and family reside in their home located in [place], [place]. Kym reports she is not working and able to provide 24 hour supervision to patient upon discharge. Patient's spouse reports patient has no current or past history of suicidal/homicidal ideation to the best of her knowledge. When SW asked about any current or past history of mental health diagnosisor concerns. Patient and spouse deny an previous mental health history. Patient nodded yes in regards to current concerns. Kym stated he is having some anxiety at this time. Kym stated that she has been informed that patient may experience some emotional changes following surgery. Patient agreed to having anxiety and is more emotional at this time. SW encouraged patient and spouse to share any concerns related to his symptoms with SICU and/or Transplant medical staff. Patient and spouse agree to monitor and discuss with medical staff as needed. Patient reports no history of alcohol and/or illicit drug abuse. Patient reports no previous recommendation and/or need for home health care services or halfway facility placement. Patient reports no previous need or recommendation for durable medical equipment. Patient is currently in SICU and is anticipated to transition to [facility] med/surg floor in the next few days. Patient will be evaluated by PT/OT in the next few days. LEODAN discussed various discharge planning options that may be recommended for patient. LEODAN informed patient and spouse she will follow up with them to discuss PT/OT recommendations and discharge planning needs. At this time patient is not medically ready for discharge. LEODAN provided patient and spouse with contact information. LEODAN thanked patient and spouse for their time. LEODAN will continue to follow post-liver transplant patient, communicate with Liver Transplant Multidisciplinary team, and assist with discharge planning. This assessment has been reviewed with the multi-disciplinary team. Ginger GARCIA, KIM [phone] * Madelyn Kwok RD - 10/11/2017 1:22 PM ESTAssociated Order(s): IP CONSULT TO NUTRITION SERVICES TXP-follow up [facility] Medical Nutrition Therapy Follow-Up Diet Order/Nutrition Support: Diabetisource AC @ 75ml/hr, Consistent carbohydrate 1900-2100kcals, Boost glucose control TID Pertinent Information: Mr. Rollins is a 42 y.o. 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 Pt with improved mental status. Feeding tube placed yesterday for nutrition support due to AMS. Pt is s/p swallow eval with DAIRY TESTER on 10/10 who approved regular diet with thin liquids. Pt was sitting up in bed with at bedside. As per pt with good appetite and PO intake prior to transplant andstates he ate 3 meals/day + snacks. Pt consumed 50% of breakfast this AM. Reviewed the importance of adequate calorie and protein intake at this time and reinforced 3 meals/day with protein at every meal + nutrition supplements as needed. Pt denied any BMs but reports + flatus. Now that patient hasimproved mental status and is ok for PO intake can consider discontinuing feeding tube. Admit Weight: 256lbs Current Weight: 278lbs Scheduled Meds: ??? aspirin 81 mg Oral Daily with breakfast ??? entecavir 0.5 mg Oral DAILY 0600 ??? gabapentin 600 mg Oral TID ??? heparin (porcine) 5,000 Units Subcutaneous 3 times per day ??? melatonin 3 mg Oral Nightly (2099) ??? [START ON 10/12/2017] methylPREDNISolone sod suc(PF) 50 mg Intravenous Once Followed by ??? [START ON 10/13/2017] predniSONE 40 mg Oral Once Followed by ??? [START ON 10/14/2017] predniSONE 30 mg Oral Once Followed by ??? [START ON 10/15/2017] predniSONE 25 mg Oral Once Followed by ??? [START ON 10/16/2017] predniSONE 20 mg Oral Daily 0900 ??? metoprolol tartrate 37.5 mg Oral TID ??? mycophenolate (CELLCEPT) IVPB 500 mg Intravenous BID ? ? nystatin 500,000 Units Swish & Swallow TID ??? pantoprazole 40 mg Intravenous DAILY 0600 ??? Pharmacy to Discontinue all previous insulin and antidiabetic medications MISCELLANEOUS Once ??? sulfamethoxazole-trimethoprim 1 tablet Oral Daily 0900 ??? [START ON 10/12/2017] valGANciclovir 900 mg Oral Daily 0900 Continuous Infusions: ??? esmolol (BREVIBLOC) 20 mg/mL 80 mcg/kg/min (10/11/17 0958) ??? insulin (HumuLIN R) infusion 12 Units/hr (10/11/17 1302) ??? sodium chloride 0.9 % 75 mL/hr (10/11/17 0611) PRN Meds:All IV Medications in Normal Saline 0.9%, dextrose 50 % in water (D50W), glucose, hydrALAZINE, insulin (HumuLIN R) infusion AND INSULIN INFUSION PROTOCOL (NOT FOR DKA OR HHS), labetalol,oxyCODONE OR oxyCODONE, traMADol OR traMADol Pertinent Labs: Lab Results Component Value Date CREATININE 1.69 (H) 10/11/2017 BUN 50 (H) 10/11/2017 NA 142 10/11/2017 K 4.1 10/11/2017 CL 112 (H) 10/11/2017 CO2 23 10/11/2017 Lab Results Component Value Date CALCIUM 8.0 (L) 10/11/2017 PHOS 4.2 10/11/2017 Lab Results Component Value Date MG 2.3 10/11/2017 Lab Results Component Value Date ALKPHOS 46 10/11/2017 ALT 297 (H) 10/11/2017 AST 71 (H) 10/11/2017 BILITOT 1.0 10/11/2017 ALBUMIN 2.4 (L) 10/11/2017 ALBUMIN 2.4 (L) 10/11/2017 BILIDIRECT 0.41 (H) 10/11/2017 PROT 4.4 (L) 10/11/2017 No results found for: PREALBUMIN Lab Results Component Value Date GLUCOSE 148 (H) 10/11/2017 Component Value Date/Time POCGMD 234 (H) 10/11/2017 1300 POCGMD 257 (H) 10/11/2017 1207 POCGMD 151 (H) 10/11/2017 1002 POCGMD 145 (H) 10/11/2017 0758 POCGMD 142 (H) 10/11/2017 0650 POCGLU 225 (H) 10/08/2017 1232 POCGLU 218 (H) 10/08/2017 1138 POCGLU 167 (H) 10/08/2017 1109 POCGLU 178 (H) 10/08/2017 1004 POCGLU 176 (H) 10/08/2017 0903 Lab Results Component Value Date HGBA1C 5.4 10/09/2017 Lab Results Component Value Date WBC 9.0 10/11/2017 98.4 ??F (36.9 ??C) (Oral) Ht Readings from Last 1 Encounters: 10/10/17 5' 7 (1.702 m) Wt Readings from Last 3 Encounters: 10/11/17 (!) 278 lb 14.1 oz (126.5 kg) 10/02/17 (!) 251 lb (113.9 kg) 08/31/17 (!) 255 lb (115.7 kg) Body mass index is 43.68 kg/m??. Skin: Abd incision Estimated Nutrition Needs: Needs based On: IBW 69.5kg Kcals/day: (30kcal/kg) 2085kcals Protein g/day: (1.5-2.0g/kg)104-139g Carbohydrate g/day: (45% of kcals) 235g Fluid ml/day: 1ml/kcal or as per MD Nutrition Diagnosis: Increased kcal/protein needs ?? Related To: Increased demand for nutrients As Evidenced By: Recent liver transplant, medically complex Nutrition Diagnosis: Food- and nutrition-related knowledge deficit Related to:?? Exposure to new information As evidenced by: Recent liver transplant and subsequent need for medical nutrition therapy education Established Nutrition Intervention: Change Current Diet Order, Add/Change Medical Food Supplement/Snack, Monitor PO Intake/Tolerance and Education/Counseling: post txp nutrition Established Goals: Total energy intake improved as evidenced by PO intake at least 50-75% of meals/supplements/snacks within -1-3 days and Voices/demonstrates knowledge of post txp education/counseling Goals: ongoing Nutrition Status Classification: Severely Compromised This information has been communicated to the transplant multidisciplinary team Follow up: per policy while inpatient. If patient is discharged dietitian will be available for consultation on an as needed basis as identified by the multidisciplinary team. Additional Recommendation(s) to Physicians: 1. Continue current diet + supplements 2. Continue calorie counts and monitor PO intake closely 3. Can consider d/cing feeding tube Madelyn Kwok RD, Pager#[phone] * Kelly Lemons MD - 10/10/2017 8:30 AM ESTAssociated Order(s): IP CONSULT TO NEUROLOGY Images from the original note were not included. [facility] Neurology Department INITIAL CONSULT NOTE 10/10/2017 8:31 AM Patient:Leoncio Rollins LOS: 3 days Reason for consult: altered mental status community resource officer: KELLY LEMONS MD Requesting MD/Contact #: Tami Richardson MD IMPRESSION/ RECOMMENDATION : Leoncio Rollins is a 42 y.o. male on hospital day 3. The Neurological issues being addressed in today's encounter are as follows: Altered Mental Status In a patient who had a liver transplant 2 days prior. Per , the way he is behaving currently isconsistent with previous episodes of hepatic encephalopathy. His exam is notable for anarthria, sporadic or absent command- following on both sides, both positive and negative stimulus-induced myoclonus in all 4 extremities, and consistent tracking and regarding of the examiner. This presentation isatypical for ischemic stroke but could conceivably fit with a hypoxic-ischemic injury. Overall it seems most likely that his altered mental status is due to hepatic encephalopathy in the setting of hyperammonemia. Despite lack of a significant fluctuation in sodium or glucose levels, and absence ofa calcineurin inhibitor, ODS and PRES could still be considered. Because of his consistent trackingand regarding of the examiner with appropriate response of all 4 extremities to noxious stim, I think seizures/NCSE are unlikely. Recommendations: - agree with MRI brain WO - could trend ammonia - delirium precautions Will be seen and staffed with attending of record Dr. Ruiz arango today. THANK YOU FOR THIS CONSULT. PLEASE PAGE #[phone] WITH ANY QUESTIONS. CC/HPI Leoncio Rollins is a 42 y.o. 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 Neurology was consulted to assist with evaluation of persistent altered mental status since leaving the OR. Per patient's , prior to the surgery he had been in good spirits and was speaking and interacting normally. After the surgery his speech output seemed to be less, and the last time his heardhim speak was a few words yesterday morning at about 1100. She remembers him saying his name was Eh at that time, and has since then not said anything at all. He has remained awake but just staring and not moving much. Of note she says this type of behavior is common when his ammonia is elevated. No hx of stroke, seizure or other neurologic issues. He does not drink or use any drugs or prescribed BZDs. He is on cellcept and solumedrol, has not been on other immunomodulatory meds. Past Medical History Past Medical History: Diagnosis Date ??? Acute pancreatitis ??? Ascites ??? Diabetes mellitus (HCC) ??? Esophageal varices with bleeding (HCC) ??? GERD (gastroesophageal reflux disease) ??? Hepatic encephalopathy (HCC) ??? Hypertension ??? 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 Vitamin D deficiency Past Surgical History: Procedure Laterality Date ??? LIVER TRANSPLANTATION N/A 10/08/2017 Procedure: TRANSPLANT LIVER; Surgeon: David Mendenhall MD; Location: [facility]; Service: Transplant; Laterality: N/A; ??? TIPS PROCEDURE 10/2016 ??? TIPS Revision 04/2017 Family History Family History Problem Relation Age of Onset ??? Diabetes Sister Social History Social History Substance Use Topics ??? Smoking status: Never Smoker ??? Smokeless tobacco: Never Used ??? Alcohol use No Allergy Allergies Allergen Reactions ??? Codeine ??? Dilaudid [Hydromorphone] Other (See Comments) Hallucinations ??? Flexeril [Cyclobenzaprine] ROS Unable to assess, pt anarthric Medications Medication List TAKE these medications, which are NEW Quantity/Refills blood sugar diagnostic Strp Use to test blood sugar up to 4 times a day. Dx: E 9.65. Brand per pharmacy / insurance preference Quantity: 150 strip Refills: 5 blood-glucose meter Misc Use as instructed. Note to Pharmacy: Per pharmacy / insurance preference Quantity: 1 each Refills: 0 insulin lispro 100 unit/mL Inpn Administer insulin with meals per sliding scale: Blood glucose 150-199 mg/dL =1units, Blood cyucguw843-133 mg/dL =2 units, Blood glucose 250-299 mg/dL =3 units, Blood glucose 300-349 mg/dL =4 units,Blood glucose greater than 349 mg/dL = 5 units Quantity: 10 mL Refills: 5 insulin NPH human recomb 100 unit/mL (3 mL) Inpn Inject 5 Units subcutaneously 2 times a day. Quantity: 10 mL Refills: 5 lancets Misc Use to test blood sugar up to 4 times a day. Dx: E 9.65. Brand per pharmacy / insurance preference Quantity: 150 each Refills: 5 mycophenolate 250 mg capsule Commonly known as: CELLCEPT Take 2 capsules (500 mg total) by mouth 2 times a day. Quantity: 120 capsule Refills: 5 nystatin 100,000 unit/mL suspension Commonly known as: MYCOSTATIN Take 5 mLs (500,000 Units total) by mouth 3 times a day. Quantity: 473 mL Refills: 0 pantoprazole 40 MG tablet Commonly known as: PROTONIX Take 1 tablet (40 mg total) by mouth every morning before breakfast. Quantity: 30 tablet Refills: 2 * pen needle, diabetic 32 gauge x 5/32 Ndle For use with insulin pen. Use as instructed. Quantity: 150 each Refills: 5 * pen needle, diabetic 32 gauge x 5/32 Ndle For use with insulin pen. Use as instructed. Quantity: 150 each Refills: 5 predniSONE 5 MG tablet Commonly known as: DELTASONE Take 20 mg daily. Quantity: 120 tablet Refills: 5 sulfamethoxazole-trimethoprim 400-80 mg per tablet Commonly known as: BACTRIM,SEPTRA Take 1 tablet by mouth daily. Quantity: 30 tablet Refills: 5 tacrolimus 1 MG capsule Commonly known as: PROGRAF Take 5 capsules (5 mg total) by mouth 2 times a day. Quantity: 300 capsule Refills: 5 valGANciclovir 450 mg tablet Commonly known as: VALCYTE Take 1 tablet (450 mg total) by mouth daily. Quantity: 30 tablet Refills: 2 * This list has 2 medication(s) that are the same as other medications prescribed for you. Read thedirections carefully, and ask your doctor or other care provider to review them with you. ASK your doctor about these medications Quantity/Refills APIDRA SOLOSTAR 100 unit/mL Inpn Generic drug: insulin glulisine Inject subcutaneously. Refills: 0 BASAGLAR KWIKPEN 100 unit/mL (3 mL) Inpn Generic drug: insulin glargine Inject 40 Units subcutaneously at bedtime. Refills: 0 carvedilol 25 MG tablet Commonly known as: COREG Take 25 mg by mouth 2 times a day with meals. Refills: 0 ergocalciferol 50,000 unit capsule Commonly known as: ERGOCALCIFEROL Take 50,000 Units by mouth once a week. Refills: 0 esomeprazole 40 MG capsule Commonly known as: NEXIUM Take 40 mg by mouth every morning before breakfast. Refills: 0 gabapentin 600 MG tablet Commonly known as: NEURONTIN Take 600 mg by mouth 3 times a day. Refills: 0 glimepiride 1 MG tablet Commonly known as: AMARYL Take 1 mg by mouth before breakfast. Refills: 0 lactulose 10 gram/15 mL solution Commonly known as: CHRONULAC Take 20 g by mouth 3 times a day. Indications: Hepatic Encephalopathy For: Hepatic Encephalopathy Refills: 0 losartan 50 MG tablet Commonly known as: COZAAR Take 50 mg by mouth daily. Refills: 0 metFORMIN ER 1000 MG (MOD) 24 hr tablet Commonly known as: GLUMETZA Take 1,000 mg by mouth 2 times a day with meals. Refills: 0 rifAXIMin 550 mg Tab tablet Commonly known as: XIFAXAN Take 550 mg by mouth 2 times a day. Refills: 0 tiZANidine 4 MG capsule Commonly known as: ZANAFLEX Take 0.5 mg by mouth at bedtime as needed for Muscle spasms. Refills: 0 zinc sulfate 220 (50) mg capsule Commonly known as: ZINCATE Take 1 capsule (220 mg total) by mouth 2 times a day. Quantity: 60 capsule Refills: 3 Where to Get Your Medications These medications were sent to [facility] [address], [facility] [address] Hours: Monday - Monday: 8:45AM - 5:00PM ?? blood sugar diagnostic Strp ?? blood-glucose meter Misc ?? insulin lispro 100 unit/mL Inpn ?? insulin NPH human recomb 100 unit/mL (3 mL) Inpn ?? lancets Misc ?? mycophenolate 250 mg capsule ?? nystatin 100,000 unit/mL suspension ?? pantoprazole 40 MG tablet ?? pen needle, diabetic 32 gauge x Ndle ?? pen needle, diabetic 32 gauge x Ndle ?? predniSONE 5 MG tablet ?? sulfamethoxazole-trimethoprim 400-80 mg per tablet ?? tacrolimus 1 MG capsule ?? valGANciclovir 450 mg tablet Scheduled Meds: ??? thymoglobulin/heparin/hydrocortisone in sodium chloride 0.9% 1.5 mg/kg Intravenous Once ??? aspirin 81 mg Oral Daily with breakfast ??? carvedilol 12.5 mg Oral BID WC ??? entecavir 0.5 mg Oral DAILY 0600 ??? gabapentin 100 mg Oral TID ??? heparin (porcine) 5,000 Units Subcutaneous 3 times per day ??? [START ON 10/11/2017] methylPREDNISolone sod suc(PF) 60 mg Intravenous Once Followed by ??? [START ON 10/12/2017] methylPREDNISolone sod suc(PF) 50 mg Intravenous Once Followed by ??? [START ON 10/13/2017] predniSONE 40 mg Oral Once Followed by ??? [START ON 10/14/2017] predniSONE 30 mg Oral Once Followed by ??? [START ON 10/15/2017] predniSONE 25 mg Oral Once Followed by ??? [START ON 10/16/2017] predniSONE 20 mg Oral Daily 0900 ??? mycophenolate (CELLCEPT) IVPB 500 mg Intravenous BID ? ? nystatin 500,000 Units Swish & Swallow TID ??? pantoprazole 40 mg Intravenous DAILY 0600 ??? Pharmacy to Discontinue all previous insulin and antidiabetic medications MISCELLANEOUS Once Continuous Infusions: ??? electrolyte 100 mL/hr (10/09/170) ??? esmolol (BREVIBLOC) 20 mg/mL 80 mcg/kg/min (10/10/17 0655) ??? insulin (HumuLIN R) infusion 2 Units/hr (10/10/17 08) ??? morphine (PF) GI ASST ??? sodium chloride 20 mL/hr (10/09/17 0924) ??? sodium chloride 20 mL/hr (10/09/17 173) PRN Meds:.All IV Medications in Normal Saline 0.9%, dextrose 50 % in water (D50W), glucose, hydrALAZINE, insulin (HumuLIN R) infusion AND INSULIN INFUSION PROTOCOL (NOT FOR DKA OR HHS), labetalol, nalbuphine, naloxone, ondansetron Physical Exam: Temp: [99.5 ??F (37.5 ??C)-100.5 ??F (38.1 ??C)] 100.3 ??F (37.9 ??C) Heart Rate: [96-126] 96 Resp: [12-16] 16 BP: (104-178)/(56-103) 144/79 Arterial Line BP: (127-203)/(65-97) 151/73 FiO2: [40 %-85 %] 85 % Wt Readings from Last 3 Encounters: 10/10/17 (!) 273 lb 9.5 oz (124.1 kg) 10/02/17 (!) 251 lb (113.9 kg) 08/31/17 (!) 255 lb (115.7 kg) General Appearance: lying in bed in NAD Pulm: in no resp distress CV: not tachycardic GI: no abdominal tenderness, dressings intact, somewhat distended Extr: no cyanosis or edema MENTAL STATUS: Anarthric, regards and tracks examiner, turns his head and regards on the other side Did not follow commands for me but did mimic Showed his thumb on command to transplant resident CRANIAL NERVES: CN II: pupils 3mm b/l reactive, blink to threat CN III/IV/: EOM grossly intact CN V: unable to assess CN VII: no facial droop, mimics smile symmetrically CN VIII: regards when called CN IX/X: not tested CN XI: SCMs appear full ROM CN XII: did not stick out tongue MOTOR: No atrophy Some paratonia R>L Negative and positive myoclonus induced by stimuli in all 4 extremities, none at rest antigrav or greater both arms all muscle groups Moved both feet but not other leg muscle groups SENSORY: withdraws all 4 noxious stim COORDINATION: unable to assess GAIT: NT DEEP TENDON REFLEX: R L Biceps 2 2 Triceps 1 1 Brachioradialis 1 1 Patellar 1 1 Achilles 2 1 Plantar reflex w w Clonus: 3-4 beats ankle clonus both feet LABS Lab Results Component Value Date GLUCOSE 137 (H) 10/10/2017 BUN 46 (H) 10/10/2017 CO2 20 (L) 10/10/2017 CREATININE 2.22 (H) 10/10/2017 K 4.0 10/10/2017 NA 144 10/10/2017 CL 113 (H) 10/10/2017 CALCIUM 8.4 (L) 10/10/2017 No results found for: GLUFAST Lab Results Component Value Date WBC 9.3 10/10/2017 HGB 9.7 (L) 10/10/2017 HCT 27.6 (L) 10/10/2017 MCV 104.6 (H) 10/10/2017 PLT 63 (L) 10/10/2017 Lab Results Component Value Date INR 1.3 (H) 10/10/2017 Lab Results Component Value Date CHOLTOT 86 08/21/2017 TRIG 187 (H) 10/08/2017 HDL 26 (L) 08/21/2017 LDL 41 08/21/2017 Lab Results Component Value Date HGBA1C 5.4 10/09/2017 No results found for: PROTEINCSF, GLUCCSF, CFLCCOM, CULTCSF Scans: CT Head WO contrast Final Result IMPRESSION: No acute intracranial abnormality. Approved by Juaquin Helton on 10/09/2017 6:43 PM EST I have personally reviewed the images and I agree with this report. Report Verified by: Kim Almonte M.D. at 10/09/2017 7:01 PM EST US Abdomen Complete Final Result IMPRESSION: Abdomen: Normal sonographic appearance of the transplant liver. Liver duplex: Mildly turbulent flow within the main portal vein. Normal directional flow with resistive indices as detailed above. Report Verified by: CARLOS EDUARDO ROSS MD at 10/09/2017 12:11 PM EST US Duplex [id number] Comp Final Result IMPRESSION: Abdomen: Normal sonographic appearance of the transplant liver. Liver duplex: Mildly turbulent flow within the main portal vein. Normal directional flow with resistive indices as detailed above. Report Verified by: CARLOS EDUARDO ROSS MD at 10/09/2017 12:11 PM EST X-ray Portable Chest Final Result IMPRESSION: 1. Low lung volumes with minimal bibasilar atelectasis. 2. Support devices as described above. I have personally reviewed the images and I agree with this report. Report Verified by: ANDERSON GARRISON M.D. at 10/09/2017 6:43 AM EST X-ray Portable Chest Final Result IMPRESSION: 1. ET tube in appropriate position. 2. PA catheter overlies the main pulmonary artery. 3. No airspace consolidation. Approved by Anton Young on 10/08/2017 2:30 PM EST I have personally reviewed the images and I agree with this report. Report Verified by: Jack Vargas at 10/08/2017 2:36 PM EST X-ray Chest PA and Lateral Final Result IMPRESSION: No acute cardiopulmonary findings. Approved by Germán Santoyo on 10/08/2017 12:41 AM EST I have personally reviewed the images and I agree with this report. Report Verified by: ANDERSON GARRISON M.D. at 10/08/2017 1:03 AM EST MRI Head WO contrast (Results Pending) KELLY LEMONS MD Neurology Department Pager #: [phone] 10/10/2017 Cosigned by Merari Melchor MD at 10/10/2017 12:23 PM EST Associated attestation - Merari Melchor MD - 10/10/2017 12:23 PM EST Neurology Attending Note Patient is s/p liver transplant with hepatic disease secondary to SAL. Neurology consulted for altered mental status following transplant. On resident exam patient was not consistently following exam. On my exam later his morning, patient was alert, tracking well, followed about 70 percent of simple commands. Rest of exam was nonfocal as above. Per his family, this is improved compared with the last couple of days. He is still not talking at this point. Last ammonia was elevated at 93. Agree with imaging, MRI brain Agree with repeat NH3 level If any change in exam or worsening, will reassess. His altered mental status which is slowly improving may be related to the elevated ammonia level. On this day I saw, examined, and was physically present for the duarte portions of the services provided. I agree with the resident's plan and notes except for those listed on my note. Merari Melchor * Madelyn Kwok, RD - 10/09/2017 11:19 AM ESTAssociated Order(s): IP CONSULT TO NUTRITION SERVICES TXP: Initial [facility] Medical Nutrition Therapy Reason(s) for Completion: Physician/Nursing Referral and Nutrition Services Protocol Diet Order/Nutrition Support: NPO Pertinent Information: 42 y.o. male with ESLD w/ cirrhosis 2/2 SAL, HTN, IDDM, GERD, and obesity who is s/p orthotopic liver transplant on 10/08. Pt is s/p extubation this AM. Remains on insnulin drip, weaning. Pt was last seen in clinic on 08/22/17 and was noted with good appetite and PO intake. Pt denied any ascites, edema or muscle loss at that time. Currently NPO, will recommend to advance diet as able/tolerated. Will monitor PO intake closely. Unable to speak to pt at this time. Admit Weight: 256lbs Current Weight: 256lbs Past Medical History: Diagnosis Date ??? Acute pancreatitis ??? Ascites ??? Diabetes mellitus (HCC) ??? Esophageal varices with bleeding (HCC) ??? GERD (gastroesophageal reflux disease) ??? Hepatic encephalopathy (HCC) ??? Hypertension ??? 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 Vitamin D deficiency Past Surgical History: Procedure Laterality Date ??? LIVER TRANSPLANTATION N/A 10/08/2017 Procedure: TRANSPLANT LIVER; Surgeon: David Mendenhall MD; Location: [facility]; Service: Transplant; Laterality: N/A; ??? TIPS PROCEDURE 10/2016 ??? TIPS Revision 04/2017 Scheduled Meds: ??? aspirin 81 mg Oral Daily with breakfast ??? entecavir 0.5 mg Oral DAILY 0600 ??? heparin (porcine) 5,000 Units Subcutaneous 3 times per day ??? [START ON 10/10/2017] methylPREDNISolone sod suc(PF) 125 mg Intravenous Once Followed by ??? [START ON 10/11/2017] methylPREDNISolone sod suc(PF) 60 mg Intravenous Once Followed by ??? [START ON 10/12/2017] methylPREDNISolone sod suc(PF) 50 mg Intravenous Once Followed by ??? [START ON 10/13/2017] predniSONE 40 mg Oral Once Followed by ??? [START ON 10/14/2017] predniSONE 30 mg Oral Once Followed by ??? [START ON 10/15/2017] predniSONE 25 mg Oral Once Followed by ??? [START ON 10/16/2017] predniSONE 20 mg Oral Daily 0900 ??? metoprolol tartrate 5 mg Intravenous Q6H ??? mycophenolate (CELLCEPT) IVPB 500 mg Intravenous BID ? ? nystatin 500,000 Units Swish & Swallow TID ??? pantoprazole 40 mg Intravenous DAILY 0600 ??? Pharmacy to Discontinue all previous insulin and antidiabetic medications MISCELLANEOUS Once Continuous Infusions: ??? electrolyte 125 mL/hr (10/09/17923) ??? insulin (HumuLIN R) infusion 7 Units/hr (10/09/17920) ??? morphine (PF) GI ASST ??? sodium chloride 20 mL/hr (10/09/17923) PRN Meds:All IV Medications in Normal Saline 0.9%, dextrose 50 % in water (D50W), glucose, hydrALAZINE, insulin (HumuLIN R) infusion AND INSULIN INFUSION PROTOCOL (NOT FOR DKA OR HHS), nalbuphine, naloxone, ondansetron Pertinent Labs: Lab Results Component Value Date CREATININE 2.04 (H) 10/09/2017 BUN 37 (H) 10/09/2017 NA 142 10/09/2017 K 4.4 10/09/2017 CL 112 (H) 10/09/2017 CO2 23 10/09/2017 Lab Results Component Value Date CALCIUM 9.3 10/09/2017 PHOS 4.6 10/09/2017 Lab Results Component Value Date MG 1.9 10/09/2017 Lab Results Component Value Date ALKPHOS 61 10/09/2017 ALT 654 (H) 10/09/2017 AST 632 (H) 10/09/2017 BILITOT 1.4 10/09/2017 ALBUMIN 2.4 (L) 10/09/2017 ALBUMIN 2.4 (L) 10/09/2017 BILIDIRECT 0.66 (H) 10/09/2017 PROT 4.8 (L) 10/09/2017 No results found for: PREALBUMIN Lab Results Component Value Date GLUCOSE 187 (H) 10/09/2017 Lab Results Component Value Date HGBA1C 5.4 10/09/2017 Lab Results Component Value Date WBC 11.5 (H) 10/09/2017 99.1 ??F (37.3 ??C) (Stites) Skin Integrity: abd incision Potential Nutrition Related Factor(s): Appetite Change Food Allergies/Intolerances: NKFA Cultural Requests: NA 42 y.o. Male Ht Readings from Last 1 Encounters: 10/08/17 5' 7 (1.702 m) Wt Readings from Last 1 Encounters: 10/08/17 (!) 256 lb (116.1 kg) Body mass index is 40.1 kg/m??. Usual Weight: ~275lbs prior to illness Duson Weight: 153lbs based on BMI 24kg/m^2 Weight History: Wt Readings from Last 3 Encounters: 10/08/17 (!) 256 lb (116.1 kg) 10/02/17 (!) 251 lb (113.9 kg) 08/31/17 (!) 255 lb (115.7 kg) Estimated Nutrition Needs: Needs based On: IBW 69.5kg Kcals/day: (30kcal/kg) 2085kcals Protein g/day: (1.5-2.0g/kg)104-139g Carbohydrate g/day: (45% of kcals) 235g Fluid ml/day: 1ml/kcal or as per MD Nutrition Diagnosis: Increased kcal/protein needs Related To: Increased demand for nutrients As Evidenced By: Recent liver transplant, medically complex Nutrition Diagnosis: Food- and nutrition-related knowledge deficit Related to: Exposure to new information As evidenced by: Recent liver transplant and subsequent need for medical nutrition therapy education Recommended Interventions: Change Current Diet Order, Add/Change Medical Food Supplement/Snack, Monitor PO Intake/Tolerance and Education/Counseling: post txp nutrition Goals:Total energy intake improved as evidenced by PO intake at least 50-75% of meals/supplements/snacks within -1-3 days and Voices/demonstrates knowledge of post txp education/counseling Nutrition Status Classification: Severely Compromised Coordination of Nutrition Care: This information has been communicated to the transplant multidisciplinary team Follow up: per policy while inpatient. If patient is discharged dietitian will be available for consultation on an as needed basis as identified by the multidisciplinary team. Recommendation(s) to Physician: 1. Advance diet to consistent carbohydrate 1900-2100kcal diet as able/tolerated + Boost glucose control TID 2. Monitor PO intake closely. 3. Encourage PO intake. Madelyn Kwok RD, LD Pager#[phone] * Je Acevedo MD - 10/08/2017 2:07 PM ESTAssociated Order(s): IP CONSULT TO SURGICAL CRITICAL CARE Surgical ICU H&P / CONSULT 10/08/2017 2:07 PM Patient:Leoncio Rollins HPI: Leoncio Rollins is a 42 y.o. 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 He was previously following at , but decompensated in 09/2016 with massive variceal bleed and TIPS procedure. As a result, he was second listed at . His liver disease has been complicated by encephalopathy, it is being treated with xifaxan and lactulose. After Stites-viviana catheter was placed, Mr. Rollins was found to have pulmonary hypertension with BPs in the 40s. His transplant was otherwise uncomplicated, EBL 2800, and he received 5 units FFP, 2 units pRBC, 1 plt. Additionally he received 1250 of Cell Saver. Past Medical History: Diagnosis Date ??? Acute pancreatitis ??? Ascites ??? Diabetes mellitus (HCC) ??? Esophageal varices with bleeding (HCC) ??? GERD (gastroesophageal reflux disease) ??? Hepatic encephalopathy (HCC) ??? Hypertension ??? 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 Vitamin D deficiency Past Surgical History: Procedure Laterality Date ??? TIPS PROCEDURE 10/2016 ??? TIPS Revision 04/2017 Prescriptions Prior to Admission Medication Sig Dispense Refill Last Dose ??? carvedilol (COREG) 25 MG tablet Take 25 mg by mouth 2 times a day with meals. Taking ??? ergocalciferol (ERGOCALCIFEROL) 50,000 unit capsule Take 50,000 Units by mouth once a week. Taking ??? esomeprazole (NEXIUM) 40 MG capsule Take 40 mg by mouth every morning before breakfast. Taking ??? gabapentin (NEURONTIN) 600 MG tablet Take 600 mg by mouth 3 times a day. Taking ??? glimepiride (AMARYL) 1 MG tablet Take 1 mg by mouth before breakfast. Taking ??? insulin glargine (BASAGLAR KWIKPEN) 100 unit/mL (3 mL) InPn Inject 40 Units subcutaneously at bedtime. Taking ??? insulin glulisine (APIDRA SOLOSTAR) 100 unit/mL InPn Inject subcutaneously. Taking ??? lactulose (CHRONULAC) 10 gram/15 mL solution Take 20 g by mouth 3 times a day. Indications: Hepatic Encephalopathy Taking ??? losartan (COZAAR) 50 MG tablet Take 50 mg by mouth daily. Taking ??? metFORMIN ER (GLUMETZA) 1000 MG (MOD) 24 hr tablet Take 1,000 mg by mouth 2 times a day with meals. Taking ??? rifAXIMin (XIFAXAN) 550 mg Tab tablet Take 550 mg by mouth 2 times a day. Taking ??? tiZANidine (ZANAFLEX) 4 MG capsule Take 0.5 mg by mouth at bedtime as needed for Muscle spasms.Taking ??? zinc sulfate (ZINCATE) 220 (50) mg capsule Take 1 capsule (220 mg total) by mouth 2 times a day. 60 capsule 3 Scheduled Meds: ??? [START ON 10/09/2017] aspirin 81 mg Oral Daily with breakfast ??? entecavir 0.5 mg Oral DAILY 0600 ??? [START ON 10/09/2017] methylprednisolone (SOLU-medrol) IV 250 mg Intravenous Once Followed by ??? [START ON 10/10/2017] methylPREDNISolone sod suc(PF) 125 mg Intravenous Once Followed by ??? [START ON 10/11/2017] methylPREDNISolone sod suc(PF) 60 mg Intravenous Once Followed by ??? [START ON 10/12/2017] methylPREDNISolone sod suc(PF) 50 mg Intravenous Once Followed by ??? [START ON 10/13/2017] predniSONE 40 mg Oral Once Followed by ??? [START ON 10/14/2017] predniSONE 30 mg Oral Once Followed by ??? [START ON 10/15/2017] predniSONE 25 mg Oral Once Followed by ??? [START ON 10/16/2017] predniSONE 20 mg Oral Daily 0900 ??? mycophenolate (CELLCEPT) IVPB 500 mg Intravenous BID ? ? nystatin 500,000 Units Swish & Swallow TID ??? pantoprazole 40 mg Intravenous DAILY 0600 ??? Pharmacy to Discontinue all previous insulin and antidiabetic medications MISCELLANEOUS Once Continuous Infusions: ??? insulin (HumuLIN R) infusion ??? sodium chloride PRN Meds:.All IV Medications in Normal Saline 0.9%, dextrose 50 % in water (D50W), glucose, insulin(HumuLIN R) infusion AND INSULIN INFUSION PROTOCOL (NOT FOR DKA OR HHS) Allergies Allergen Reactions ??? Codeine ??? Dilaudid [Hydromorphone] Other (See Comments) Hallucinations ??? Flexeril [Cyclobenzaprine] Social History Substance Use Topics ??? Smoking status: Never Smoker ??? Smokeless tobacco: Never Used ??? Alcohol use No Family History Problem Relation Age of Onset ??? Diabetes Sister REVIEW OF SYSTEMS: Pertinent items are noted in HPI. PHYSICAL EXAM: CONSTITUTIONAL: General: Intubated, sedated, jaundiced Temp (24hrs), Av.5 ??F (36.9 ??C), Min:98.2 ??F (36.8 ??C), Max:98.8 ??F (37.1 ??C) BP 171/83 Pulse 84 Temp 98.2 ??F (36.8 ??C) (Axillary) Resp 16 Ht 5' 7 (1.702 m) Wt (!) 256 lb (116.1 kg) SpO2 99% BMI 40.10 kg/m?? HEENT: Exam: conjuctiva, lids normal, scleral icterus and pupils equal A/P:No acute issues RESPIRATORY: Exam: effort normal and clear to auscultation bilaterally Respiratory Support: Vent Setting:Patient Vitals for the past 4 hrs: FiO2 Vent Mode Resp Rate (Set) Vt (Set, mL) Spont TV Inspiratory Time Set PIP Observed PEEP/CPAP Delta Pressure Support (cm H2O) 10/08/17 1340 50 % VC-SIMV/PRVC 16 500 mL 264 mL 1.3 sec 18 cm H2O 8 cm H20 10 cm H2O Lab 10/08/17 1353 PH ARTERIAL 7.34* PCO2 ARTERIAL 44 PO2 ARTERIAL 148* HCO3 ARTERIAL 24 BASE EXCESS ARTERIAL -2.1* A/P: Hypoxia: Wean vent as tolerated Pulmonary Hypertension: Will discuss interventions needed CARDIOVASCULAR: Exam: auscultation normal, rhythm and rate normal and pulses equal bilaterally Troponin: Hemodynamics: No data found. A/P: NSR on monitor Hypertension ASA Home Meds Held: Losartan 50 mg daily Coreg 25mg BID Hydralazine 20mg IV q4 PRN NUTRITION: TF:N/A TPN rate:N/A A/P: NPO Moderate Protein Calorie Malnutrition - Albumin 3.0 - Will encourage early feeds. GASTROINTESTINAL: Exam: no masses or tenderness, soft, obese, no rebound and no guarding Hepatic Profile: Lab 10/08/17 0026 ALK PHOS 148* ALT 24 AST 52* BILIRUBIN TOTAL 5.8* ALBUMIN 3.0* 3.0* BILIRUBIN DIRECT 1.50* TOTAL PROTEIN 5.9* A/P: ESLD / SAL - S/P OLT 10/08/2017 - Baseline bilirubin 4.3 - Baseline AST 47, ALT 24 Hepatic Encephalopathy - Lactulose - Rifaximin GERD - Protonix History of esophageal varices with bleeding - - S/P TIPS Ascites - S/P OLT 10/08/2017 History of acute pancreatitis - No present symptoms - Will monitor FLUIDS/ELECTROLYTES: IVFluids:NS 100 mL/hr Labs: Lab 10/08/17 0026 SODIUM 142 POTASSIUM 4.3 CHLORIDE 109 CO2 23 BUN 21 CREATININE 1.57* GLUCOSE 370* CALCIUM 9.9 PHOSPHORUS 2.2 Date 10/07/17 07 - 10/08/17 0659 10/08/17 07 - 10/09/17 0659 Shift 4300-0941 2767-7151 8454-6155 24 Hour Total 8280-1262 1483-0855 6801-2597 24 Hour Total I N T A K E I.V. 4000 (34.4) 4000 (34.4) Volume (mL) (lactated Ringers infusion) 900 900 Volume (mL) (electrolyte-R (pH 7.4) (NORMOSOL-R pH 7.4) iv solution SolP) 2100 2100 Volume (mL) (sodium chloride 0.9 % infusion) 1000 1000 Blood 2473 2473 PRBC - Units 2 x 2 x PRBC - Volume 584 584 FFP - Units 5 x 5 x FFP - Volume 638 638 Platelets - Volume 1 1 Cell Saver - Volume 1250 1250 Shift Total (mL/kg) 6473 (55.7) 6473 (55.7) O U T P U T Urine 375 375 Urine 375 375 Blood 2800 2800 Est Blood Loss 2800 2800 Shift Total (mL/kg) 3175 (27.3) 3175 (27.3) Weight (kg) 116.1 116.1 116.1 116.1 116.1 116.1 I/O: 6.4/3.2 Blood: 5x FFP, 2x pRBC, 1x Platelets, 1250 Cell saver UOP: 375 EBL: 2800 A/P: Non-anion gap metabolic acidosis Baseline Bicarbonate 24 Lactate 1.4, will continue to trend PH 7.34 RENAL: A/P: CARMEN on CKD - Cr 1.57 - Marginal UOP during case - Baseline Cr 1.39-1.4 - Baseline BUN 18-20 - Monitor UOP - Resuscitate as needed - Anders for strict I/O SKIN/MUSCULOSKELETAL: Exam: inspection normal, pitting edema and moves all extremities well A/P: Vitamin D deficiency Will supplement when taking PO HEMATOLOGIC: Labs: Lab 10/08/17 1226 10/08/17 1103 WBC -- -- 3.2* HEMOGLOBIN -- -- 9.2* HEMOCUE HEMOGLOBIN, POC 9.5* < > 8.8* HEMATOCRIT -- -- 26.3* PLATELETS -- -- 92* < > = values in this interval not displayed. Lab 10/08/17 1103 INR 2.2* Lab 10/08/17 1103 FIBRINOGEN LEVEL 145* Lab 10/08/17 1103 TEG ANGLE 70.1 TEG K TIME 135.0 TEG LYSIS 30 0.0 TEG MAX AMPLITUDE 51.3* TEG RTIME 55.0* A/P: Coagulopathy Likely 2/2 blood loss Elevated INR intraop (2.2) Will continue to trend Repeat TEG ENDOCRINE: FSBS range: Lab 10/08/17 1352 10/08/17 0613 POC GLU MONITORING DEVICE 251* 210* Lab 10/08/17 1232 10/08/17 1138 10/08/17 1109 10/08/17 1004 10/08/17 0903 POCGLUART 225* 218* 167* 178* 176* Insulin regimen:Insulin GTT A/P: Insulin dependent DMII INFECTIOUS DISEASE: Culture date: N/A Culture result: N/A No results found for: COLORU, CLARITYU, PH, PROTEINUA, PHUR, LABSPEC, GLUCOSEU, BLOODU, LEUKOCYTESUR, NITRITE, BILIRUBINUR, UROBILINOGEN, RBCUA, WBCUA, BACTERIA, AMORPHOUS, CRYSTAL, CASTS No results found for: ISO1, ISO2, ISO3, ISO4, ISO5, ISO6, LABGRAM No results found for: AEROBOT, ANABOT, LABGRAM, ISO2, ISO3, ISO4, ISO5, ISO6, PNAFISH Antibiotics (day):N/A A/P: CMV IGG - EBV IGG + Mumps IGG + Rubella - Rubeola - VZV IGG + Hep A IGG + Hep B Surface AB + Core - HCV - TB - Toxoplasma - HIV - Treponema - NEUROLOGIC: Exam: sedated, intubated , , No data found. EEG: N/A EVD: N/A TCDs:N/A ICP Management: N/A A/P: Wean sedation as tolerated Hepatic Encephalopathy - Lactulose - Xifaxan PSYCHIATRIC: Exam: sedated A/P: Pain Fentanyl GTT Propofol GTT Patient Lines/Drains/Airways Status Active Epidural Line / PICC Line / PIV Line / ART Line / Line / CVC Line Name: Placement date: Placement time: Site: Days: Peripheral IV 10/08/17 Left 10/08/17 less than 1 Arterial Line Right Radial Radial Introducer 10/08/17 10/08/17 0953 less than 1 Anders: Yes If yes: Less than 48 hrs EVD: No A/P: Continue current lines INJURY/DISEASE SPECIFIC NEEDS: DVT Prophylaxis: SCDs GI Prophylaxis: None JE ACEVEDO 10/08/2017 2:07 PM Cosigned by Evelin Arnold MD at 10/09/2017 6:31 AM EST Associated attestation - Evelin Arnold MD - 10/09/2017 6:31 AM EST ICU ATTENDING PROGRESS NOTE Leoncio Rollins was seen by the resident team, nurses, pharmacist and respiratory therapists of the multidisciplinary critical care team on 10/08/2017. I have personally seen and examined this patient today (10/08/2017) and reviewed the events of the previous 24 hours with the multidisciplinary criticalcare team and the case has been discussed with the Transplant team. I note the following in my assessment and will implement this plan of coordinated critical care management as follows: 42 yo M with HTN, DM-II, hyperlipidemia, and ESLD from SAL (encephalopathy, varices, MELD 25) and emergent TIPS () who underwent OLT on 10-07-2017. Intraoperative mean PA pressures initially 40s, PAS 60s. Stayed intubated post op. HEENT: No acute issues. RESPIRATORY: Atelectasis/pulmonary collapse Hypoxia Respiratory failure, acute WITH trauma or surgery Vent Mode: VC-SIMV/PRVC FiO2: [40 %-100 %] 40 % S RR: [16] 16 S VT: [500 mL] 500 mL PEEP/CPAP: [0 cm H20-9 cm H20] 8 cm H20 7.34/44/148/-2.1 Wean to SPS and plan for extubation in AM CARDIOVASCULAR: Hypertension, essential benign - holding home Hyperlipidemia - restart statin when taking po NUTRITION: NPO No acute issues GASTROINTESTINAL: Cirrhosis, not secondary to alcohol s/p OLT - T bili 5. ASA for reconstructed hepatic artery. US tomorrow. GERD - on home ppi FLUIDS / ELECTROLYTES: NS at 75 Hypomagnesemia - supplement per protocol RENAL: CKD - baseline cr 1.4 Currently 1.6 Will monitor UO. Intake/Output Summary (Last 24 hours) at 10/08/17 1541 Last data filed at 10/08/17 1500 Gross per 24 hour Intake 6473 ml Output 3310 ml Net 3163 ml SKIN/MUSCULOSKELETAL No acute issues. HEMATOLOGIC: Coagulopathy, unspecified - INR 1.8. No correction at this time. Thrombocytopenia - 86k - no transfusion Acute hemorrhagic anemia - hgb 10.2 Will monitor. ENDOCRINE: DM, type II, controlled - on insulin gtt txp immunosuppression - steroids, cellcept INFECTIOUS DISEASE: hepatitis B - will need entecavir txp prophylaxis - nystatin NEUROLOGIC: awake and moving all extremities. Follows commands No acute issues PSYCHIATRIC, PAIN, SEDATION: Pain Management - prop 5 and fent 50 INJURY / DISEASE SPECIFIC NEEDS: No acute issues DVT Prophylaxis: Subcutaneous Heparin GI Prophylaxis: ppi ACTIVE LINES: Patient Lines/Drains/Airways Status Active Epidural Line / PICC Line / PIV Line / ART Line / Line / CVC Line Name: Placement date: Placement time: Site: Days: Peripheral IV 10/08/17 Left 10/08/17 less than 1 Arterial Line Right Radial Radial Introducer 10/08/17 10/08/17 0953 less than 1 Central Line? Yes - Reason: Hemodynamic monitoring swan ACTIVE DRAINS: Urinary Catheter? Anders - Reason: Adequate I/O DISPOSITION: Remain in ICU Total critical care time spent caring for this patient over the past 24 hours, including direct patient contact, management of life support systems review of data (i.e.: imaging and lab), discussion with team members, and excluding time spent on procedures: 38 minutes This note documents care provided on 10/08/2017. Evelin Arnold MD Division of Trauma and Critical Care [facility] documented in this encounter Nursing Notes * Josie Diaz RN - 10/27/2017 3:57 PM EDT NPN: Focus discharge D: MD order to discharge Pt home. A: Removed PIV, applied guaze, pressure, and tape. Educated Pt on importance of FU appointments. Ptprovided date, time, and location of FU appointment. Pt educated on new medications, which medications to continue taking, and which medications to stop taking. Pt educated to return to the nearest ER if symptoms return or worsen. Reviewed AVS in full with Pt. Discharge meds given to pt at bedside from [facility]. Pharmacist educated pt on meds. Pt denies any questions. Pt obtained all belongings. Oxygen tank with patient when discharged. R: Pt left 8 CCP accompanied by transportation heading to front entrance to meet transportation home. * Whitney Gill RN - 10/26/2017 2:43 PM EDT CMU orders reconciled. * Ayla Yuan RN - 10/25/2017 9:28 AM EDT CMU orders reconciled. * Tee Lyons RN - 10/23/2017 9:36 AM EDT CMU orders reconciled. TEE LYONS * Gloria Bach RN - 10/23/2017 12:53 AM EDT Central monitoring remote orders reconciled. ?? Gloria Bach RN - Central Monitoring Unit * Wilmer Naik RN - 10/21/2017 9:49 AM EST Central monitoring remote orders reconciled. Wilmer Naik RN - Central Monitoring Unit * Ayla Latham RN - 10/20/2017 9:36 AM EST Central monitoring remote orders reconciled. ?? Ayla Latham RN - Central Monitoring Unit * Rachna El RN - 10/19/2017 10:17 PM EST CMU orders reviewed and reconciled RACHNA EL RN * Rose Gill RN - 10/19/2017 1:02 PM EST Patient assessed this AM with student nurse, Anna. Noted hypoxia with O2 sat at 78-79% on room air. Patient voicing concern about placing oxygen back on as he was concerned presence of oxygen would delay his discharge home. Patient's RN, Erica and transplant MD notified of hypoxia. Noted new orders for transfusion, low hemoglobin. Oxygen placed back on patient at 2L via [place]. Oxygen sat on 2L 93%. Patient voicing understanding for reason oxygen resumed for now. Assured as soon as able will wean. * Laurence King RN - 10/19/2017 7:33 AM EST CMU orders reconciled. Laurence King RN * Janeth Irwin RN - 10/18/2017 9:30 PM EST CMU orders reconciled. Janeth Irwin RN * Samantha Campos RN - 10/16/2017 9:00 PM EST Pt SAts well on 1L O2 NC at rest, needs 2-3 L when ambulates. Ambulated t/o unit, tolerated fairly well. VSS, BS well controled, BPs improved, good urinary output. at bed sdie, call light in reach. * Samantha Campos RN - 10/16/2017 5:25 AM EST Pt AxOx4, PRN Hydralazine adm for high BP's. Will monitor. * Samantha Campos RN - 10/15/2017 10:00 PM EST Team notified of high blood sugars at HS, new orders entered, 10 units of Humalog administered per order. Pt ambulated t/o unit with family, tolerated well. Pt cont to require 2L NC at all times, desats to 80% on RA. Call light in reach, will monitor. * Ivett Petersen - 10/15/2017 12:03 PM EST Pt taken to [facility] bed 8015 via wheelchair. Pt in bathroom, aware of call-cord and pt aware of use as well. [facility] RN notified of pt arrival. * Ivett Petersen - 10/15/2017 10:20 AM EST Leoncio Rollins has orders to be transferred to the floor. Pt has been assigned a bed on [facility] room number 8015. SICU resident notified of transfer. Called report to Darya BATES. All belongings, chart and meds gathered and transferred with pt. U SP02 ordered. Pt transferred via wheelchair. All questionsanswered. Notified pt's contact center consultant of transfer. IVETT PETERSEN * Rupesh Crespo RN - 10/08/2017 12:06 PM EST Results with Flow Probe: 148 LHA 3. 220 RHA 1.8. * Rupesh Crespo RN - 10/08/2017 11:56 AM EST At 11:54, coag called in to OR room with critical lab value on PTT, 101.1. Lab value was reported to anesthesia in the room. No orders from anesthesia taken.(11:57) * Edwina Barnes RN - 10/08/2017 10:40 AM EST Updated * Edwina Barnes RN - 10/08/2017 9:05 AM EST Updated of surgery start documented in this encounter Miscellaneous Notes * Care Coordination - Khushi Tavares - 10/26/2017 5:21 PM EDT Patient is set up with [facility] [employer] ([phone]) for Group Home , PT/OTand Lab Draws every Monday and by 8:30 AM and [employer] ([phone]) for Home Oxygen and a Rolling Walker. [employer] will deliver a tank of Oxygen and a Rolling Walker to patient hospital room to take home with him. Patient is to call [employer] [facility] [facility] When he is discharged and is leaving the Hospital so that they can meet him at his home to set up his Concentrator for his Oxygen at Home. Consuelo Tavares Laundry Machine Tender Brief Writer Renal/GI/TXP/Liver/Kidney [facility] [phone] * Care Coordination - RADHA Nielsen, PARTY DEMONSTRATOR - 10/26/2017 4:36 PM EDT Laundry Machine Tender/Financial Services Representative met with liver transplant multidisciplinary team for daily rounds onpost-liver transplant patient. Post liver transplant patient is not medically ready for discharge at this time. Post-liver transplant patient has been re-assessed by medical team. Patient verbalized that he is not going to go to inpatient rehab and wants to discharge home. Patient verbalized that he is going to discharge home and stating he is not going to go to inpatient rehab. Patient is able to ambulate with rolling walker and will require oxygen upon discharge. LEODAN will follow up with [facility] to discontinue to placement request and pre-cert for placement. Patient anticipated for discharge tomorrow Friday 10/27 with home health care services through [facility] and all necessary equipment will be delivered to patient prior to discharge tomorrow. SW will follow up with patient tomorrow morning to finalize and review discharge plan. SW will continue to follow post liver transplant patient, communicate with liver transplant multidisciplinary team, and assist with discharge planning. KIM Davey Laundry Machine Tender/Financial Services Representative [phone] * Home Health Care Note - Erica Acevedo MD - 10/26/2017 1:12 PM EDT Images from the original note were not included. REFERRAL FOR HOME HEALTH SERVICES FORM Patient name: Leoncio Rollins Patient : 1975 Age: 42 y.o. Gender: male SSN: [id number] Address: [facility] [place] [id number] Phone number: [phone] (home) Patient emergency contact: Extended Emergency Contact Information Primary Emergency Contact: Kym Rollins Address: [facility] [address] [address] Mobile Relation: Spouse Secondary Emergency Contact: Kimberly Rollins [facility] Relation: Mother Date of admission: 10/07/2017 Date of discharge: 10/26/2017 Attending provider: David Mendenhall MD Primary care physician: Edgar Fournier MD Code status: Full Code Allergies: Allergies Allergen Reactions ??? Codeine ??? Dilaudid [Hydromorphone] Other (See Comments) Hallucinations ??? Flexeril [Cyclobenzaprine] Insurance Information Insurance Information TRANSPLANT GLOBAL/TRANSPLANT GLOBAL Subscriber: Leoncio Rolilns Subscriber#: [id number] Group#: Precert#: GENERIC MANAGED MEDICAID/[employer]ANS [facility] Subscriber: Leoncio Rollins Subscriber#: [id number] Group#: [id number] Precert#: Diagnoses Present on Admission Primary Diagnosis: Liver transplant candidate Discharge Diagnosis : Active Hospital Problems Diagnosis Date Noted ??? Liver transplant candidate [Z76.82] 10/07/2017 ??? Liver transplanted ([facility] Dx) [Z94.4] Resolved Hospital Problems Diagnosis Date Noted Date Resolved No resolved problems to display. Prognosis: good Rehabilitation potential: good Diet Diabetic Diet Boost Glucose Control (diabetic supplement) TID Services Required Group Home Physical Therapy: Plan Treatment/Interventions: Equipment eval/education, Stair Training, Therapeutic Exercise, Therapeutic Activity, Continued evaluation, Patient/family training, Endurance training, LE strengthening/ROM,Gait training PT Frequency: Other (Comment) (3x/week) Recommendation Recommendation: IP Rehab Equipment Recommended: Defer at this time Occupational Therapy: Plan Treatment Interventions: ADL retraining, Functional transfer training, Excercise, Therapeutic Activity, Patient/Family training, Cognitive reorientation, Activity Tolerance training, Energy Conservation, Compensatory technique education OT Frequency: 3-5x/wk Recommendation Recommendation: IP Rehab Equipment Recommended: Defer at this time Weight bearing status: full Needs 24 hour supervision due to cognitive impairment: No Discharge Medications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 [id number] During the consent process, study inclusion/exclusion criteria were reviewed with Leoncio Rollins. Inclusion/Exclusion criteria met: Leoncio Rollins ( ) is a 42 y.o. y.o. male. Inclusion criteria: 1. Male and female subjects (>= 18 years old) who are liver transplant recipients. 2. Discharged home within 45 days of liver transplant. 3. Able and willing to provide informed consent. Exclusion criteria: 1. Post transplant care provided by [facility] or rehab facility > 45 days after liver transplant. 2. Unable to have [employer] wireless connectivity or wifi in their home. 3. Patient has any form of psychiatric disorder or a condition that, in the opinion of the clerical investigator, may hinder communication with the clerical investigator. 4. Inability to cooperate or communicate with the clerical investigator. Recipient is eligible for study participation. PI agrees to study participation for this patient. SALIMA RAMIREZ Study Pager: Study Title: Use of Health Informational Technology to Improve Outcomes in Liver Transplant Recipients [facility] Study #: [id number] Leoncio Rollins ( ) is a 42 y.o. y.o. male who has received a liver transplant on 10/08/2017. Dr. Mendenhall has met and discussed with Leoncio Rollins studies that are currently available for liver transplant patients on 10/12/2017. Standard of care was reviewed and potential Telehealth monitoring was discussed and explained as is outlined in the protocol. All patient???s questions were answered. The subject understands and agrees to participate in the Use of Health Informational Technology to Improve Outcomes in Liver Transplant Recipients study (Telehealth Part II), which is a randomized, clerical investigator-initiated study whose goal is to assess effectiveness of a Telehealth medical home intervention post OLT. The subject signed the informed consent and received a copy prior to any study procedures. A signed patient consent is located in the patient???s EPIC chart under Media/Consent. SALIMA RAMIREZ Cosigned by David Mendenhall MD at 10/13/2017 1:03 PM EST * Plan of Care - Sherrie Norman RN - 10/11/2017 10:26 PM EST Problem: Non-violent, jfi-ygbm-ekgtubeuism restraints Less restrictive alternative interventions will be considered prior to application of restraint devices. Goal: Patient will be restrained only to maintain safety Alternatives to restraints can include; moving the patient closer to the nurses station, video monitoring where available, medicating for pain, agitation or psychosis, psychosocial interventions, manipulation of environment, frequent toileting, diversional activities, bed alarms, having family members sit with patient, frequent reorientation, or repositioning. Outcome: Progressing SHERRIE NORMAN RN 10/11/2017 10:26 PM * Plan of Care - Rachel James RN - 10/11/2017 10:12 AM EST Problem: Non-violent, opu-brmm-bbhdqsnbdlh restraints Less restrictive alternative interventions will be considered prior to application of restraint devices. Goal: Patient will be restrained only to maintain safety Alternatives to restraints can include; moving the patient closer to the nurses station, video monitoring where available, medicating for pain, agitation or psychosis, psychosocial interventions, manipulation of environment, frequent toileting, diversional activities, bed alarms, having family members sit with patient, frequent reorientation, or repositioning. Outcome: Progressing * Plan of Care - Skylar Terrazas RN - 10/10/2017 9:30 PM EST Problem: Non-violent, cne-hkjt-nqenhkdnccy restraints Less restrictive alternative interventions will be considered prior to application of restraint devices. Goal: Patient will be restrained only to maintain safety Alternatives to restraints can include; moving the patient closer to the nurses station, video monitoring where available, medicating for pain, agitation or psychosis, psychosocial interventions, manipulation of environment, frequent toileting, diversional activities, bed alarms, having family members sit with patient, frequent reorientation, or repositioning. Patient in bilateral soft wrist restraints to maintain patient safety and protect medical devices. Will continue to monitor and reassess need for restraints. See restraint flowsheet for further documentation. * Plan of Care - Latrice Silvestre RN - 10/10/2017 7:21 AM EST Problem: Glucose Imbalance Goal: Clinical indication of glucose balance is achieved Outcome: Progressing Goal: Patient's discharge needs are met Outcome: Progressing Problem: Knowledge Deficit Goal: Patient/family/caregiver demonstrates understanding of disease process, treatment plan, medications, and discharge instructions Complete learning assessment and assess knowledge base. Outcome: Progressing Problem: Compromised Skin Integrity Use this problem when pressure ulcers are classified as stage I or II. Goal: Skin integrity is maintained or improved Assess and monitor skin integrity. Identify patients at risk for skin breakdown on admission and per policy. Collaborate with interdisciplinary team and initiate plans and interventions as needed. Outcome: Progressing Problem: Knowledge Deficit Goal: Patient/family/caregiver demonstrates understanding of disease process, treatment plan, medications, and discharge instructions Complete learning assessment and assess knowledge base. Outcome: Progressing Problem: Potential for Compromised Skin Integrity Goal: Skin integrity is maintained or improved Assess and monitor skin integrity. Identify patients at risk for skin breakdown on admission and per policy. Collaborate with interdisciplinary team and initiate plans and interventions as needed. Outcome: Progressing Problem: Non-violent, ace-sexl-zjukrudfhjo restraints Less restrictive alternative interventions will be considered prior to application of restraint devices. Goal: Patient will be restrained only to maintain safety Alternatives to restraints can include; moving the patient closer to the nurses station, video monitoring where available, medicating for pain, agitation or psychosis, psychosocial interventions, manipulation of environment, frequent toileting, diversional activities, bed alarms, having family members sit with patient, frequent reorientation, or repositioning. Outcome: Progressing Problem: Pain Goal: Patient's pain is progressing toward patient's stated pain goal Assess and monitor patient's pain using appropriate pain scale. Collaborate with interdisciplinary team and initiate plan and interventions as ordered. Re-assess patient's pain level 30 - 60 minutes after pain management intervention. Outcome: Progressing Problem: Safety Goal: Patient will be injury free during hospitalization Assess and monitor vitals signs, neurological status [...] policy, and non-skid footwear provided. Outcome: Progressing * Plan of Care - Ryan Cavazos RN - 10/09/2017 7:47 PM EST Problem: Pain Goal: Patient's pain is progressing toward patient's stated pain goal Assess and monitor patient's pain using appropriate pain scale. Collaborate with interdisciplinary team and initiate plan and interventions as ordered. Re-assess patient's pain level 30 - 60 minutes after pain management intervention. Outcome: Progressing Problem: Safety Goal: Patient will be injury free during hospitalization Assess and monitor vitals signs, neurological status [...] and non-skid footwear provided. Outcome: Progressing Problem: Daily Care Goal: Daily care needs are met Assess and monitor ability to perform self care and identify potential discharge needs. Outcome: Progressing * Plan of Care - Ryan Cavazos RN - 10/09/2017 7:46 PM EST Problem: Potential for Infection Goal: Remains infection free Assess and monitor vital signs, skin (color, moisture, integrity, turgor), respiratory status, urinary and gastrointestinal status, and labs (WBC, cultures). Ensure aseptic care of all intravenous lines and invasive tubes/drains. Monitor for signs and symptoms of infection (redness, warmth, discharge, increased body temperature). Wash hands properly before and after each patient care activity. Follow isolation guidelines per hospital protocol/policy. Collaborate with interdisciplinary team and initiate plan and interventions as ordered. Outcome: Progressing Problem: Potential for Compromised Skin Integrity Goal: Skin integrity is maintained or improved Assess and monitor skin integrity. Identify patients at risk for skin breakdown on admission and per policy. Collaborate with interdisciplinary team and initiate plans and interventions as needed. Outcome: Progressing Problem: Fall Prevention Goal: Patient will remain free of falls Assess and monitor vitals signs, neurological status including level of consciousness and orientation. Reassess fall risk per hospital policy. Ensure arm band on, uncluttered walking paths in room, adequate room lighting, call light and overbed table within reach, bed in low position, wheels locked, side rails up per policy, and non-skid footwear provided. Outcome: Progressing Problem: Non-violent, onb-asle-naaxudvbuej restraints Less restrictive alternative interventions will be considered prior to application of restraint devices. Goal: Patient will be restrained only to maintain safety Alternatives to restraints can include; moving the patient closer to the nurses station, video monitoring where available, medicating for pain, agitation or psychosis, psychosocial interventions, manipulation of environment, frequent toileting, diversional activities, bed alarms, having family members sit with patient, frequent reorientation, or repositioning. Outcome: Progressing Patient continues to be in bilateral upper soft restraints. Restraints remain in place to protect medical equipment as patient not fully following commands. Further need for restraints will be assessed throughout the shift. More information can be found on restraint flowsheet. * Care Coordination - RADHA Nielsen, PARTY DEMONSTRATOR - 10/09/2017 3:34 PM EST Laundry Machine Tender/Financial Services Representative met with liver transplant multidisciplinary team for daily rounds onpost-liver transplant patient. Post liver transplant patient received transplant surgery today. Patient currently intubated. SW will complete post-liver transplant psy/soc assessment once patient is extubated and able to participate in assessment. SW will follow up tomorrow on patient's status. ?? SW will continue to follow post liver transplant patient, communicate with liver transplant multidisciplinary team, and assist with discharge planning. ?? Ginger GARCIA, KIM Inpatient Liver Transplant Laundry Machine Tender/Financial Services Representative [phone] * Plan of Care - Latrice Silvestre RN - 10/09/2017 8:47 AM EST Problem: Glucose Imbalance Goal: Clinical indication of glucose balance is achieved Outcome: Progressing Goal: Patient's discharge needs are met Outcome: Progressing Problem: Knowledge Deficit Goal: Patient/family/caregiver demonstrates understanding of disease process, treatment plan, medications, and discharge instructions Complete learning assessment and assess knowledge base. Outcome: Progressing Problem: Compromised Skin Integrity Use this problem when pressure ulcers are classified as stage I or II. Goal: Skin integrity is maintained or improved Assess and monitor skin integrity. Identify patients at risk for skin breakdown on admission and per policy. Collaborate with interdisciplinary team and initiate plans and interventions as needed. Outcome: Progressing Goal: Fluid and electrolyte balance are achieved/maintained Assess and monitor vital signs (orthostatic vitals if applicable), fluid intake and output, urine color, labs, skin turgor, mucous membranes, jugular venous distention, edema, circumference of edematous extremities and abdominal girth, respiratory status, and mental status. Monitor for signs and symptoms of hypovolemia (tachycardia, rapid breathing, decreased urine output, postural hypotension, confusion, syncope). Monitor for signs and symptoms of hypervolemia (strong rapid pulse, shortness ofbreath, difficulty breathing lying down, crackles heard in lung simmons, edema). Collaborate with interdisciplinary team and initiate plan and interventions as ordered. Outcome: Progressing Problem: Knowledge Deficit Goal: Patient/family/caregiver demonstrates understanding of disease process, treatment plan, medications, and discharge instructions Complete learning assessment and assess knowledge base. Outcome: Progressing Problem: Potential for Compromised Skin Integrity Goal: Skin integrity is maintained or improved Assess and monitor skin integrity. Identify patients at risk for skin breakdown on admission and per policy. Collaborate with interdisciplinary team and initiate plans and interventions as needed. Outcome: Progressing Problem: Knowledge Deficit Goal: Patient/family/caregiver demonstrates understanding of disease process, treatment plan, medications, and discharge instructions Complete learning assessment and assess knowledge base. Outcome: Progressing Problem: Fall Prevention Goal: Patient will remain free of falls Assess and monitor vitals signs, neurological status including level of consciousness and orientation. Reassess fall risk per hospital policy. Ensure arm band on, uncluttered walking paths in room, adequate room lighting, call light and overbed table within reach, bed in low position, wheels locked, side rails up per policy, and non-skid footwear provided. Outcome: Progressing Problem: Non-violent, agf-jbsp-oqdbcsafvir restraints Less restrictive alternative interventions will be considered prior to application of restraint devices. Goal: Patient will be restrained only to maintain safety Alternatives to restraints can include; moving the patient closer to the nurses station, video monitoring where available, medicating for pain, agitation or psychosis, psychosocial interventions, manipulation of environment, frequent toileting, diversional activities, bed alarms, having family members sit with patient, frequent reorientation, or repositioning. Outcome: Progressing * Plan of Care - [facility] - 10/08/2017 11:59 PM EST Problem: Compromised Skin Integrity Use this problem when pressure ulcers are classified as stage I or II. Goal: Fluid and electrolyte balance are achieved/maintained Assess and monitor vital signs (orthostatic vitals if applicable), fluid intake and output, urine color, labs, skin turgor, mucous membranes, jugular venous distention, edema, circumference of edematous extremities and abdominal girth, respiratory status, and mental status. Monitor for signs and symptoms of hypovolemia (tachycardia, rapid breathing, decreased urine output, postural hypotension, confusion, syncope). Monitor for signs and symptoms of hypervolemia (strong rapid pulse, shortness ofbreath, difficulty breathing lying down, crackles heard in lung simmons, edema). Collaborate with interdisciplinary team and initiate plan and interventions as ordered. Outcome: Progressing Problem: Potential for Compromised Skin Integrity Goal: Skin integrity is maintained or improved Assess and monitor skin integrity. Identify patients at risk for skin breakdown on admission and per policy. Collaborate with interdisciplinary team and initiate plans and interventions as needed. Outcome: Progressing Problem: Knowledge Deficit Goal: Patient/family/caregiver demonstrates understanding of disease process, treatment plan, medications, and discharge instructions Complete learning assessment and assess knowledge base. Outcome: Progressing Problem: Non-violent, ygo-tkxd-lmodgfopbnx restraints Less restrictive alternative interventions will be considered prior to application of restraint devices. Goal: Patient will be restrained only to maintain safety Alternatives to restraints can include; moving the patient closer to the nurses station, video monitoring where available, medicating for pain, agitation or psychosis, psychosocial interventions, manipulation of environment, frequent toileting, diversional activities, bed alarms, having family members sit with patient, frequent reorientation, or repositioning. Outcome: Progressing * Plan of Care - Paulina Chiang RN - 10/08/2017 7:17 PM EST Problem: Non-violent, iqz-txqr-rtjmwkoihpz restraints Less restrictive alternative interventions will be considered prior to application of restraint devices. Goal: Patient will be restrained only to maintain safety Alternatives to restraints can include; moving the patient closer to the nurses station, video monitoring where available, medicating for pain, agitation or psychosis, psychosocial interventions, manipulation of environment, frequent toileting, diversional activities, bed alarms, having family members sit with patient, frequent reorientation, or repositioning. Outcome: Progressing * Post Briefing - Edwina Barnes RN - 10/08/2017 12:25 PM EST INTRA-OP POST BRIEFING NOTE: Leoncio Rollins Specimens: Specimens ID Source Type Tests Collected By Collected At Frozen? Attributes Order ID Breast Spec Formalin Marked as Sent A Liver Tissue ?? SURGICAL PATHOLOGY EXAM David Mendenhall MD 10/08/17 1028 Sent in Formalin ?? [id number] 10/08/17 1028 B Gall Bladder Tissue ?? SURGICAL PATHOLOGY EXAM David Mendenhall MD 10/08/17 1133 Sent in Formalin ?? [id number] Comment: Recipient gallbladder C Liver Tissue ?? SURGICAL PATHOLOGY EXAM David Mendenhall MD 10/08/17 1135 Sent in Formalin ?? [id number] Comment: Liver biopsy Prior to leaving the room: Nurse confirmed name of procedure, completion of instrument, sponge & needle counts, reads specimen labels aloud including patient name and addresses any equipment issues? Nurse confirmed wound class. Nurse to surgeon and anesthesia: What are duarte concerns for recoveryand management of the patient? Yes Blood products stored at appropriate temperatures prior to return to blood bank (if applicable)? Yes Patient identification band secured on patient prior to transfer out of the operating room? Yes Other Comments: Signed: EDWINA BARNSE Date: 10/08/2017 Time: 12:25 PM documented in this encounter Plan of Treatment Upcoming Encounters Date Type Department Care Team (Late st Contact Info) Description 07/15/2024 9:00 AM EST Hospital Encounter [facility] Interventional Radiology [address] [place] [id number] Herve Carrillo MD [address] [facility] [address] [facility] [place] [id number] documented as of this encounter Procedures Procedure Name Priority Date/Time Associated Diagnosis Comments POC GLU MONITORING DEVICE Routine 10/27/2017 11:49 AM EDT POC GLU MONITORING DEVICE Routine 10/27/2017 8:00 AM EDT HEPATIC FUNCTION PANEL Routine 10/27/2017 7:04 AM EDT RENAL FUNCTION PANEL W/EGFR Routine 10/27/2017 7:04 AM EDT CYCLOSPORINE LEVEL Routine 10/27/2017 7: 04 AM EDT CBC Routine 10/27/2017 7:04 AM EDT MAGNESIUM Routine 10/27/2017 7:04 AM EDT POC GLU MONITORING DEVICE Routine 10/27/2017 5:40 AM EDT POC GLU MONITORING DEVICE Routine 10/27/2017 1:01 AM EDT POC GLU MONITORING DEVICE Routine 10/26/2017 6:33 PM EDT POC GLU MONITORING DEVICE Routine 10/26/2017 4:20 PM EDT POC GLU MONITORING DEVICE Routine 10/26/2017 2:[address] CHEST WO CONTRAST Routine 10/26/2017 12:55 PM EDT POC GLU MONITORING DEVICE Routine 10/26/2017 8:20 AM EDT HEPATIC FUNCTION PANEL Routine 10/26/2017 6:44 AM EDT RENAL FUNCTION PANEL W/EGFR Routine 10/26/2017 6:44 AM EDT CYCLOSPORINE LEVEL Routine 10/26/2017 6: 44 AM EDT CBC Routine 10/26/2017 6:44 AM EDT MAGNESIUM Routine 10/26/2017 6:44 AM EDT POC GLU MONITORING DEVICE Routine 10/26/2017 5:34 AM EDT POC GLU MONITORING DEVICE Routine 10/25/2017 11:53 PM EDT POC GLU MONITORING DEVICE Routine 10/25/2017 8:04 PM EDT POC GLU MONITORING DEVICE Routine 10/25/2017 2:23 PM EDT POC GLU MONITORING DEVICE Routine 10/25/2017 1:58 PM EDT POC GLU MONITORING DEVICE Routine 10/25/2017 1:42 PM EDT HEPATIC FUNCTION PANEL Routine 10/25/2017 8:12 AM EDT RENAL FUNCTION PANEL W/EGFR Routine 10/25/2017 8:12 AM EDT CYCLOSPORINE LEVEL Routine 10/25/2017 8: 12 AM EDT CBC Routine 10/25/2017 8:12 AM EDT MAGNESIUM Routine 10/25/2017 8:12 AM EDT POC GLU MONITORING DEVICE Routine 10/25/2017 8:00 AM EDT SPUTUM CULTURE PLUS STAIN Routine 10/25/2017 7:12 AM EDT POC GLU MONITORING DEVICE Routine 10/25/2017 5:48 AM EDT POC GLU MONITORING DEVICE Routine 10/25/2017 5:25 AM EDT POC GLU MONITORING DEVICE Routine 10/24/2017 11:28 PM EDT POC GLU MONITORING DEVICE Routine 10/24/2017 7:36 PM EDT NM PULMONARY V-Q WITH GAS OR AEROSOL Routine 10/24/2017 3:58 PM EDT HEPATIC FUNCTION PANEL Routine 10/24/2017 3:25 PM EDT RENAL FUNCTION PANEL W/EGFR Routine 10/24/2017 3:25 PM EDT CYCLOSPORINE LEVEL Routine 10/24/2017 3: 25 PM EDT MAGNESIUM Routine 10/24/2017 3:25 PM EDT POC GLU MONITORING DEVICE Routine 10/24/2017 2:55 PM EDT VASCI VENOUS DUPLEX LE BILATERAL Routine 10/24/2017 2:13 PM EDT XR PORTABLE CHEST STAT 10/24/2017 11: 01 AM EDT POC GLU MONITORING DEVICE Routine 10/24/2017 8:42 AM EDT CBC Routine 10/24/2017 7:25 AM EDT RACHAEL RHYTHM STRIP - SCAN 10/24/2017 7:05 AM EDT URINALYSIS W/RFL TO MICROSCOPIC Routine 10/23/2017 11:32 PM EDT POC GLU MONITORING DEVICE Routine 10/23/2017 11:24 PM EDT EKG REPORT - SCAN 10/23/2017 9:3 1 PM EDT POC GLU MONITORING DEVICE Routine 10/23/2017 8:54 PM EDT BLOOD CULTURE-PERIPHERAL Routine 10/23/2017 5:46 PM EDT POC GLU MONITORING DEVICE Routine 10/23/2017 5:39 PM EDT XR PORTABLE CHEST STAT 10/23/2017 5:0 1 PM EDT POC GLU MONITORING DEVICE Routine 10/23/2017 1:36 PM EDT POC GLU MONITORING DEVICE Routine 10/23/2017 8:09 AM EDT HEPATIC FUNCTION PANEL Routine 10/23/2017 6:13 AM EDT RENAL FUNCTION PANEL W/EGFR Routine 10/23/2017 6:13 AM EDT TACROLIMUS LEVEL Routine 10/23/2017 6:13 AM EDT CBC Routine 10/23/2017 6:13 AM EDT MAGNESIUM Routine 10/23/2017 6:13 AM EDT POC GLU MONITORING DEVICE Routine 10/22/2017 8:21 PM EDT POC GLU MONITORING DEVICE Routine 10/22/2017 6:36 PM EDT POC GLU MONITORING DEVICE Routine 10/22/2017 1:56 PM EDT POC GLU MONITORING DEVICE Routine 10/22/2017 8:20 AM EDT HEPATIC FUNCTION PANEL Routine 10/22/2017 6:41 AM EDT RENAL FUNCTION PANEL W/EGFR Routine 10/22/2017 6:41 AM EDT TACROLIMUS LEVEL Routine 10/22/2017 6:41 AM EDT CBC Routine 10/22/2017 6:41 AM EDT MAGNESIUM Routine 10/22/2017 6:41 AM EDT POC GLU MONITORING DEVICE Routine 10/21/2017 9:08 PM EST POC GLU MONITORING DEVICE Routine 10/21/2017 6:32 PM EST POC GLU MONITORING DEVICE Routine 10/21/2017 12:54 PM EST POC GLU MONITORING DEVICE Routine 10/21/2017 8:15 AM EST MISCELLANEOUS REFERENCE TEST Routine 10/21/2017 6:42 AM EST HEPATIC FUNCTION PANEL Routine 10/21/2017 6:42 AM EST RENAL FUNCTION PANEL W/EGFR Routine 10/21/2017 6:42 AM EST TACROLIMUS LEVEL Routine 10/21/2017 6:42 AM EST CBC Routine 10/21/2017 6:42 AM EST MAGNESIUM Routine 10/21/2017 6:42 AM EST LAB 10/21/2017 12:00 AM EST POC GLU MONITORING DEVICE Routine 10/20/2017 10:00 PM EST POC GLU MONITORING DEVICE Routine 10/20/2017 8:12 PM EST POC GLU MONITORING DEVICE Routine 10/20/2017 1:09 PM EST RESPIRATORY VIRAL/BACTERIAL PANEL - BAL ONLY Routine 10/20/2017 12:52 PM EST STAPHYLOCOCCAL PNEUMONIA NASAL SWAB Routine 10/20/2017 12:[address] CHEST WO CONTRAST Routine 10/20/2017 11:[address] ABDOMEN AND PELVIS WO IV CONTRAST Routine 10/20/2017 11:33 AM EST CRYPTOCOCCUS ANTIGEN, SERUM Routine 10/20/2017 10:40 AM EST POC GLU MONITORING DEVICE Routine 10/20/2017 8:15 AM EST HEPATIC FUNCTION PANEL Routine 10/20/2017 6:32 AM EST RENAL FUNCTION PANEL W/EGFR Routine 10/20/2017 6:32 AM EST TACROLIMUS LEVEL Routine 10/20/2017 6:32 AM EST TROPONIN I Routine 10/20/2017 6:32 AM EST CBC Routine 10/20/2017 6:32 AM EST T3 Add-On 10/20/2017 6:32 AM EST TSH Add-On 10/20/2017 6:32 AM EST T4, FREE Add-On 10/20/2017 6:32 AM EST MAGNESIUM Routine 10/20/2017 6:32 AM EST TROPONIN I Routine 10/19/2017 11:57 PM EST ECG 12-LEAD (MUSE) Routine 10/19/2017 10 :55 PM EST POC GLU MONITORING DEVICE Routine 10/19/2017 10:01 PM EST POC GLU MONITORING DEVICE Routine 10/19/2017 7:27 PM EST POC GLU MONITORING DEVICE Routine 10/19/2017 1:56 PM EST BLOOD CULTURE-PERIPHERAL STAT 10/19/2017 1:10 PM EST BLOOD CULTURE-PERIPHERAL STAT 10/19/2017 1:05 PM EST URINALYSIS W/RFL MICROSCOP, RFL CULTURE STAT 10/19/2017 12:49 PM EST XR PORTABLE CHEST Routine 10/19/2017 11: 48 AM EST ANTIBODY IDENTIFICATION Routine 10/19/2017 10:48 AM EST ELIUD ANTI-IGG Routine 10/19/2017 10:47 AM EST PREPARE RBC, LEUKOREDUCED Routine 10/19/2017 8:59 AM EST POC GLU MONITORING DEVICE Routine 10/19/2017 8:44 AM EST ABO/RH Routine 10/19/2017 8:44 AM EST ANTIBODY SCREEN Routine 10/19/2017 8:44 AM EST HEPATIC FUNCTION PANEL Routine 10/19/2017 6:04 AM EST RENAL FUNCTION PANEL W/EGFR Routine 10/19/2017 6:04 AM EST TACROLIMUS LEVEL Routine 10/19/2017 6:04 AM EST CBC Routine 10/19/2017 6:04 AM EST MAGNESIUM Routine 10/19/2017 6:04 AM EST EKG REPORT - SCAN 10/19/2017 12: 00 AM EST POC GLU MONITORING DEVICE Routine 10/18/2017 10:47 PM EST POC GLU MONITORING DEVICE Routine 10/18/2017 6:48 PM EST EKG REPORT - SCAN 10/18/2017 4:5 9 PM EST POC GLU MONITORING DEVICE Routine 10/18/2017 1:24 PM EST POC GLU MONITORING DEVICE Routine 10/18/2017 8:58 AM EST HEPATIC FUNCTION PANEL Routine 10/18/2017 7:32 AM EST RENAL FUNCTION PANEL W/EGFR Routine 10/18/2017 7:32 AM EST TACROLIMUS LEVEL Routine 10/18/2017 7:32 AM EST CBC Routine 10/18/2017 7:32 AM EST MAGNESIUM Routine 10/18/2017 7:32 AM EST TROPONIN I Routine 10/17/2017 11:48 PM EST ECG 12-LEAD (MUSE) Routine 10/17/2017 11 :37 PM EST POC GLU MONITORING DEVICE Routine 10/17/2017 9:42 PM EST POC GLU MONITORING DEVICE Routine 10/17/2017 6:22 PM EST POC GLU MONITORING DEVICE Routine 10/17/2017 4:21 PM EST POC GLU MONITORING DEVICE Routine 10/17/2017 1:14 PM EST POC GLU MONITORING DEVICE Routine 10/17/2017 8:27 AM EST HEPATIC FUNCTION PANEL Routine 10/17/2017 6:47 AM EST RENAL FUNCTION PANEL W/EGFR Routine 10/17/2017 6:47 AM EST TACROLIMUS LEVEL Routine 10/17/2017 6:47 AM EST CBC Routine 10/17/2017 6:47 AM EST MAGNESIUM Routine 10/17/2017 6:47 AM EST POC GLU MONITORING DEVICE Routine 10/17/2017 5:57 AM EST POC GLU MONITORING DEVICE Routine 10/16/2017 9:42 PM EST POC GLU MONITORING DEVICE Routine 10/16/2017 5:45 PM EST POC GLU MONITORING DEVICE Routine 10/16/2017 12:05 PM EST XR PORTABLE CHEST Routine 10/16/2017 9:3 4 AM EST POC GLU MONITORING DEVICE Routine 10/16/2017 7:58 AM EST HEPATIC FUNCTION PANEL Routine 10/16/2017 6:42 AM EST RENAL FUNCTION PANEL W/EGFR Routine 10/16/2017 6:42 AM EST TACROLIMUS LEVEL Routine 10/16/2017 6:42 AM EST CBC Routine 10/16/2017 6:42 AM EST MAGNESIUM Routine 10/16/2017 6:42 AM EST POC GLU MONITORING DEVICE Routine 10/16/2017 6:18 AM EST POC GLU MONITORING DEVICE Routine 10/16/2017 12:14 AM EST POC GLU MONITORING DEVICE Routine 10/15/2017 8:38 PM EST POC GLU MONITORING DEVICE Routine 10/15/2017 8:37 PM EST POC GLU MONITORING DEVICE Routine 10/15/2017 5:45 PM EST POC GLU MONITORING DEVICE Routine 10/15/2017 12:21 PM EST POC GLU MONITORING DEVICE Routine 10/15/2017 8:02 AM EST POC GLU MONITORING DEVICE Routine 10/15/2017 5:54 AM EST TACROLIMUS LEVEL Routine 10/15/2017 5:53 AM EST HEPATIC FUNCTION PANEL Routine 10/15/2017 3:57 AM EST RENAL FUNCTION PANEL W/EGFR Routine 10/15/2017 3:57 AM EST CBC Routine 10/15/2017 3:57 AM EST MAGNESIUM Routine 10/15/2017 3:57 AM EST POC GLU MONITORING DEVICE Routine 10/14/2017 8:05 PM EST POC GLU MONITORING DEVICE Routine 10/14/2017 5:06 PM EST POC GLU MONITORING DEVICE Routine 10/14/2017 12:13 PM EST POC GLU MONITORING DEVICE Routine 10/14/2017 8:04 AM EST HEPATIC FUNCTION PANEL Routine 10/14/2017 6:49 AM EST RENAL FUNCTION PANEL W/EGFR Routine 10/14/2017 6:49 AM EST TACROLIMUS LEVEL Routine 10/14/2017 6:49 AM EST MAGNESIUM Routine 10/14/2017 6:49 AM EST POC GLU MONITORING DEVICE Routine 10/14/2017 6:28 AM EST CBC Routine 10/14/2017 6:00 AM EST TOXOPLASMA GONDII, DNA, QUAL, PCR Routine 10/14/2017 4:45 AM EST LAB 10/14/2017 12:00 AM EST POC GLU MONITORING DEVICE Routine 10/13/2017 8:29 PM EST POC GLU MONITORING DEVICE Routine 10/13/2017 6:40 PM EST POC GLU MONITORING DEVICE Routine 10/13/2017 2:58 PM EST US DUPLEX [id number] COMPLETE Routine 10/13/2017 9:25 AM EST US ABDOMEN COMPLETE Routine 10/13/2017 9 :25 AM EST POC GLU MONITORING DEVICE Routine 10/13/2017 8:05 AM EST RACHAEL RHYTHM STRIP - SCAN 10/13/2017 7:32 AM EST POC GLU MONITORING DEVICE Routine 10/13/2017 6:19 AM EST HEPATIC FUNCTION PANEL Routine 10/13/2017 5:26 AM EST RENAL FUNCTION PANEL W/EGFR Routine 10/13/2017 5:26 AM EST TACROLIMUS LEVEL Add-On 10/13/2017 5:26 AM EST CBC Routine 10/13/2017 5:26 AM EST MAGNESIUM Routine 10/13/2017 5:26 AM EST POC GLU MONITORING DEVICE Routine 10/13/2017 12:29 AM EST POC GLU MONITORING DEVICE Routine 10/12/2017 7:56 PM EST POC GLU MONITORING DEVICE Routine 10/12/2017 5:15 PM EST POC GLU MONITORING DEVICE Routine 10/12/2017 4:38 PM EST POC GLU MONITORING DEVICE Routine 10/12/2017 12:02 PM EST POC GLU MONITORING DEVICE Routine 10/12/2017 10:05 AM EST POC GLU MONITORING DEVICE Routine 10/12/2017 9:02 AM EST POC GLU MONITORING DEVICE Routine 10/12/2017 7:57 AM EST POC GLU MONITORING DEVICE Routine 10/12/2017 7:14 AM EST POC GLU MONITORING DEVICE Routine 10/12/2017 6:46 AM EST POC GLU MONITORING DEVICE Routine 10/12/2017 6:28 AM EST XR PORTABLE CHEST STAT 10/12/2017 6:1 9 AM EST POC GLU MONITORING DEVICE Routine 10/12/2017 4:20 AM EST POC GLU MONITORING DEVICE Routine 10/12/2017 3:11 AM EST POC GLU MONITORING DEVICE Routine 10/12/2017 2:13 AM EST TRANSPLANT MONITOR PANEL Routine 10/12/2017 1:10 AM EST HEPATIC FUNCTION PANEL Routine 10/12/2017 1:10 AM EST RENAL FUNCTION PANEL W/EGFR Routine 10/12/2017 1:10 AM EST CBC Routine 10/12/2017 1:10 AM EST MAGNESIUM Routine 10/12/2017 1:10 AM EST AMMONIA Routine 10/12/2017 1:10 AM EST POC GLU MONITORING DEVICE Routine 10/12/2017 1:04 AM EST POC GLU MONITORING DEVICE Routine 10/12/2017 12:16 AM EST POC GLU MONITORING DEVICE Routine 10/11/2017 11:06 PM EST POC GLU MONITORING DEVICE Routine 10/11/2017 10:14 PM EST POC GLU MONITORING DEVICE Routine 10/11/2017 9:14 PM EST POC GLU MONITORING DEVICE Routine 10/11/2017 8:28 PM EST POC GLU MONITORING DEVICE Routine 10/11/2017 7:08 PM EST POC GLU MONITORING DEVICE Routine 10/11/2017 5:52 PM EST POC GLU MONITORING DEVICE Routine 10/11/2017 4:42 PM EST POC GLU MONITORING DEVICE Routine 10/11/2017 3:01 PM EST CBC Timed 10/11/2017 2:08 PM EST POC GLU MONITORING DEVICE Routine 10/11/2017 2:01 PM EST POC GLU MONITORING DEVICE Routine 10/11/2017 1:00 PM EST POC GLU MONITORING DEVICE Routine 10/11/2017 12:07 PM EST POC GLU MONITORING DEVICE Routine 10/11/2017 10:02 AM EST POC GLU MONITORING DEVICE Routine 10/11/2017 7:58 AM EST POC GLU MONITORING DEVICE Routine 10/11/2017 6:50 AM EST XR PORTABLE CHEST Routine 10/11/2017 6:2 6 AM EST TRANSPLANT MONITOR PANEL Routine 10/11/2017 4:23 AM EST HEPATIC FUNCTION PANEL Routine 10/11/2017 4:23 AM EST RENAL FUNCTION PANEL W/EGFR Routine 10/11/2017 4:23 AM EST CBC Routine 10/11/2017 4:23 AM EST MAGNESIUM Routine 10/11/2017 4:23 AM EST POC GLU MONITORING DEVICE Routine 10/11/2017 4:19 AM EST POC GLU MONITORING DEVICE Routine 10/11/2017 2:05 AM EST POC GLU MONITORING DEVICE Routine 10/11/2017 1:05 AM EST POC GLU MONITORING DEVICE Routine 10/11/2017 12:04 AM EST POC GLU MONITORING DEVICE Routine 10/10/2017 11:04 PM EST POC GLU MONITORING DEVICE Routine 10/10/2017 9:59 PM EST POC GLU MONITORING DEVICE Routine 10/10/2017 9:00 PM EST POC GLU MONITORING DEVICE Routine 10/10/2017 8:02 PM EST POC GLU MONITORING DEVICE Routine 10/10/2017 6:01 PM EST POC GLU MONITORING DEVICE Routine 10/10/2017 5:08 PM EST POC GLU MONITORING DEVICE Routine 10/10/2017 4:03 PM EST POC GLU MONITORING DEVICE Routine 10/10/2017 3:18 PM EST MRI HEAD WITHOUT CONTRAST STAT 10/10/2017 3:00 PM EST POC GLU MONITORING DEVICE Routine 10/10/2017 1:05 PM EST HEPATIC FUNCTION PANEL Routine 10/10/2017 12:53 PM EST RENAL FUNCTION PANEL W/EGFR Routine 10/10/2017 12:53 PM EST PROTIME-INR Routine 10/10/2017 12:53 PM EST CBC Routine 10/10/2017 12:53 PM EST MAGNESIUM Routine 10/10/2017 12:53 PM EST POC GLU MONITORING DEVICE Routine 10/10/2017 12:03 PM EST XR PORTABLE FEEDING TUBE X-RAY STAT 10/10/2017 12:02 PM EST POC GLU MONITORING DEVICE Routine 10/10/2017 11:03 AM EST ECHO 2D COMPLETE W/CONTRAST (TTE) STAT 10/10/2017 10:43 AM EST POC GLU MONITORING DEVICE Routine 10/10/2017 10:08 AM EST URINALYSIS W/RFL MICROSCOP, RFL CULTURE Routine 10/10/2017 10:03 AM EST BLOOD CULTURE-PERIPHERAL Routine 10/10/2017 10:03 AM EST BLOOD CULTURE-PERIPHERAL Routine 10/10/2017 10:03 AM EST POC GLU MONITORING DEVICE Routine 10/10/2017 9:10 AM EST POC GLU MONITORING DEVICE Routine 10/10/2017 8:24 AM EST POC GLU MONITORING DEVICE Routine 10/10/2017 8:04 AM EST RACHAEL RHYTHM STRIP - SCAN 10/10/2017 7:09 AM EST TRANSPLANT MONITOR PANEL Routine 10/10/2017 6:32 AM EST TROPONIN I Routine 10/10/2017 6:32 AM EST POC GLU MONITORING DEVICE Routine 10/10/2017 5:57 AM EST POC GLU MONITORING DEVICE Routine 10/10/2017 4:00 AM EST ECG 12-LEAD (MUSE) STAT 10/10/2017 3: 11 AM EST RAPID TEG Timed 10/10/2017 1:58 AM EST HEPATIC FUNCTION PANEL Routine 10/10/2017 1:58 AM EST LACTIC ACID Timed 10/10/2017 1:58 AM EST RENAL FUNCTION PANEL W/EGFR Routine 10/10/2017 1:58 AM EST TROPONIN I Routine 10/10/2017 1:58 AM EST PROTIME-INR Routine 10/10/2017 1:58 AM EST CBC Routine 10/10/2017 1:58 AM EST MAGNESIUM Routine 10/10/2017 1:58 AM EST POC GLU MONITORING DEVICE Routine 10/10/2017 1:56 AM EST POC GLU MONITORING DEVICE Routine 10/10/2017 12:00 AM EST EKG - SCAN 10/10/2017 12:00 AM EST POC GLU MONITORING DEVICE Routine 10/09/2017 9:59 PM EST POC GLU MONITORING DEVICE Routine 10/09/2017 7:58 PM EST AMMONIA STAT 10/09/2017 7:20 PM EST POC GLU MONITORING DEVICE Routine 10/09/2017 6:[address] HEAD WO CONTRAST STAT 10/09/2017 5 :00 PM EST POC GLU MONITORING DEVICE Routine 10/09/2017 3:57 PM EST BLOOD GAS, ARTERIAL STAT 10/09/2017 3 :33 PM EST HEPATIC FUNCTION PANEL Routine 10/09/2017 2:08 PM EST RENAL FUNCTION PANEL W/EGFR Routine 10/09/2017 2:08 PM EST PROTIME-INR Routine 10/09/2017 2:08 PM EST CBC Routine 10/09/2017 2:08 PM EST MAGNESIUM Routine 10/09/2017 2:08 PM EST POC GLU MONITORING DEVICE Routine 10/09/2017 2:06 PM EST RACHAEL RHYTHM STRIP - SCAN 10/09/2017 2:00 PM EST POC GLU MONITORING DEVICE Routine 10/09/2017 12:27 PM EST US DUPLEX [id number] COMPLETE Routine 10/09/2017 11:20 AM EST US ABDOMEN COMPLETE Routine 10/09/2017 1 1:20 AM EST POC GLU MONITORING DEVICE Routine 10/09/2017 11:04 AM EST POC GLU MONITORING DEVICE Routine 10/09/2017 10:02 AM EST POC GLU MONITORING DEVICE Routine 10/09/2017 9:19 AM EST POC GLU MONITORING DEVICE Routine 10/09/2017 8:04 AM EST RACHAEL RHYTHM STRIP - SCAN 10/09/2017 7:34 AM EST POC GLU MONITORING DEVICE Routine 10/09/2017 6:56 AM EST HEPATIC FUNCTION PANEL Routine 10/09/2017 6:42 AM EST RENAL FUNCTION PANEL W/EGFR Routine 10/09/2017 6:42 AM EST PROTIME-INR Routine 10/09/2017 6:42 AM EST CBC Routine 10/09/2017 6:42 AM EST MAGNESIUM Routine 10/09/2017 6:42 AM EST XR PORTABLE CHEST Routine 10/09/2017 6:2 0 AM EST POC GLU MONITORING DEVICE Routine 10/09/2017 6:05 AM EST BLOOD GAS, ARTERIAL Routine 10/09/2017 6 :05 AM EST POC GLU MONITORING DEVICE Routine 10/09/2017 5:03 AM EST POC GLU MONITORING DEVICE Routine 10/09/2017 4:02 AM EST POC GLU MONITORING DEVICE Routine 10/09/2017 3:00 AM EST BLOOD GAS, ARTERIAL STAT 10/09/2017 2 :24 AM EST POC GLU MONITORING DEVICE Routine 10/09/2017 2:06 AM EST HEPATIC FUNCTION PANEL Routine 10/09/2017 1:13 AM EST RENAL FUNCTION PANEL W/EGFR Routine 10/09/2017 1:13 AM EST PROTIME-INR Routine 10/09/2017 1:13 AM EST CBC Routine 10/09/2017 1:13 AM EST MAGNESIUM Routine 10/09/2017 1:13 AM EST HEMOGLOBIN A1C Routine 10/09/2017 1:13 AM EST POC GLU MONITORING DEVICE Routine 10/09/2017 1:11 AM EST POC GLU MONITORING DEVICE Routine 10/09/2017 12:10 AM EST POC GLU MONITORING DEVICE Routine 10/08/2017 11:11 PM EST POC GLU MONITORING DEVICE Routine 10/08/2017 10:03 PM EST POC GLU MONITORING DEVICE Routine 10/08/2017 9:03 PM EST HEPATIC FUNCTION PANEL Routine 10/08/2017 8:06 PM EST RENAL FUNCTION PANEL W/EGFR Routine 10/08/2017 8:06 PM EST PROTIME-INR Routine 10/08/2017 8:06 PM EST CBC Routine 10/08/2017 8:06 PM EST MAGNESIUM Routine 10/08/2017 8:06 PM EST POC GLU MONITORING DEVICE Routine 10/08/2017 8:05 PM EST POC GLU MONITORING DEVICE Routine 10/08/2017 7:01 PM EST POC GLU MONITORING DEVICE Routine 10/08/2017 6:08 PM EST POC GLU MONITORING DEVICE Routine 10/08/2017 5:18 PM EST POC GLU MONITORING DEVICE Routine 10/08/2017 4:07 PM EST TRIGLYCERIDES Routine 10/08/2017 3:06 PM EST POC GLU MONITORING DEVICE Routine 10/08/2017 2:58 PM EST XR PORTABLE CHEST STAT 10/08/2017 2:1 3 PM EST RAPID TEG STAT 10/08/2017 1:53 PM EST HEPATIC FUNCTION PANEL Add-On 10/08/2017 1:53 PM EST FREE CALCIUM, WHOLE BLOOD Routine 10/08/2017 1:53 PM EST LACTIC ACID, ARTERIAL, WHOLE BLOOD,[facility] Routine 10/08/2017 1:53 PM EST PROTIME-INR STAT 10/08/2017 1:53 PM EST FIBRINOGEN STAT 10/08/2017 1:53 PM EST CBC STAT 10/08/2017 1:53 PM EST PHOSPHORUS STAT 10/08/2017 1:53 PM EST MAGNESIUM STAT 10/08/2017 1:53 PM EST BLOOD GAS, ARTERIAL Routine 10/08/2017 1 :53 PM EST COMPREHENSIVE METABOLIC PANEL STAT 10/08/2017 1:53 PM EST POC GLU MONITORING DEVICE Routine 10/08/2017 1:52 PM EST POC LACTATE Routine 10/08/2017 12:32 PM EST POC TCO2 Routine 10/08/2017 12:32 PM EST POC SODIUM Routine 10/08/2017 12:32 PM EST POC POTASSIUM Routine 10/08/2017 12:32 PM EST POC PO2 Routine 10/08/2017 12:32 PM EST POC PCO2 Routine 10/08/2017 12:32 PM EST POC O2 SAT Routine 10/08/2017 12:32 PM EST POC HCO3 Routine 10/08/2017 12:32 PM EST POC CHLORIDE Routine 10/08/2017 12:32 PM EST POC BASE EXCESS Routine 10/08/2017 12:32 PM EST POC ANION GAP Routine 10/08/2017 12:32 PM EST POC SAMPLE TYPE Routine 10/08/2017 12:32 PM EST POCT PH Routine 10/08/2017 12:32 PM EST POCT CALCIUM, TOTAL Routine 10/08/2017 1 2:32 PM EST POCT GLUCOSE Routine 10/08/2017 12:32 PM EST POC HEMOCUE HEMOGLOBIN Routine 10/08/2017 12:26 PM EST POCT INR Routine 10/08/2017 12:22 PM EST POC LACTATE Routine 10/08/2017 11:38 AM EST POC TCO2 Routine 10/08/2017 11:38 AM EST POC SODIUM Routine 10/08/2017 11:38 AM EST POC POTASSIUM Routine 10/08/2017 11:38 AM EST POC PO2 Routine 10/08/2017 11:38 AM EST POC PCO2 Routine 10/08/2017 11:38 AM EST POC O2 SAT Routine 10/08/2017 11:38 AM EST POC HCO3 Routine 10/08/2017 11:38 AM EST POC CHLORIDE Routine 10/08/2017 11:38 AM EST POC BASE EXCESS Routine 10/08/2017 11:38 AM EST POC ANION GAP Routine 10/08/2017 11:38 AM EST POC SAMPLE TYPE Routine 10/08/2017 11:38 AM EST POCT PH Routine 10/08/2017 11:38 AM EST POCT CALCIUM, TOTAL Routine 10/08/2017 1 1:38 AM EST POCT GLUCOSE Routine 10/08/2017 11:38 AM EST POC HEMOCUE HEMOGLOBIN Routine 10/08/2017 11:37 AM EST POCT INR Routine 10/08/2017 11:33 AM EST POC LACTATE Routine 10/08/2017 11:09 AM EST POC TCO2 Routine 10/08/2017 11:09 AM EST POC SODIUM Routine 10/08/2017 11:09 AM EST POC POTASSIUM Routine 10/08/2017 11:09 AM EST POC PO2 Routine 10/08/2017 11:09 AM EST POC PCO2 Routine 10/08/2017 11:09 AM EST POC O2 SAT Routine 10/08/2017 11:09 AM EST POC HCO3 Routine 10/08/2017 11:09 AM EST POC CHLORIDE Routine 10/08/2017 11:09 AM EST POC BASE EXCESS Routine 10/08/2017 11:09 AM EST POC ANION GAP Routine 10/08/2017 11:09 AM EST POC SAMPLE TYPE Routine 10/08/2017 11:09 AM EST POCT PH Routine 10/08/2017 11:09 AM EST POCT CALCIUM, TOTAL Routine 10/08/2017 1 1:09 AM EST POCT GLUCOSE Routine 10/08/2017 11:09 AM EST POC TCO2 Routine 10/08/2017 11:05 AM EST POC SODIUM Routine 10/08/2017 11:05 AM EST POC POTASSIUM Routine 10/08/2017 11:05 AM EST POC PO2 Routine 10/08/2017 11:05 AM EST POC PCO2 Routine 10/08/2017 11:05 AM EST POC O2 SAT Routine 10/08/2017 11:05 AM EST POC HCO3 Routine 10/08/2017 11:05 AM EST POC CHLORIDE Routine 10/08/2017 11:05 AM EST POC BASE EXCESS Routine 10/08/2017 11:05 AM EST POC ANION GAP Routine 10/08/2017 11:05 AM EST POC SAMPLE TYPE Routine 10/08/2017 11:05 AM EST POCT PH Routine 10/08/2017 11:05 AM EST POCT CALCIUM, TOTAL Routine 10/08/2017 1 1:05 AM EST RAPID TEG STAT 10/08/2017 11:03 AM EST POC HEMOCUE HEMOGLOBIN Routine 10/08/2017 11:03 AM EST APTT STAT 10/08/2017 11:03 AM EST PROTIME-INR STAT 10/08/2017 11:03 AM EST FIBRINOGEN STAT 10/08/2017 11:03 AM EST CBC STAT 10/08/2017 11:03 AM EST POCT INR Routine 10/08/2017 10:58 AM EST POC LACTATE Routine 10/08/2017 10:04 AM EST POC TCO2 Routine 10/08/2017 10:04 AM EST POC SODIUM Routine 10/08/2017 10:04 AM EST POC POTASSIUM Routine 10/08/2017 10:04 AM EST POC PO2 Routine 10/08/2017 10:04 AM EST POC PCO2 Routine 10/08/2017 10:04 AM EST POC O2 SAT Routine 10/08/2017 10:04 AM EST POC HCO3 Routine 10/08/2017 10:04 AM EST POC HEMOCUE HEMOGLOBIN Routine 10/08/2017 10:04 AM EST POC CHLORIDE Routine 10/08/2017 10:04 AM EST POC BASE EXCESS Routine 10/08/2017 10:04 AM EST POC ANION GAP Routine 10/08/2017 10:04 AM EST POC SAMPLE TYPE Routine 10/08/2017 10:04 AM EST POCT PH Routine 10/08/2017 10:04 AM EST POCT CALCIUM, TOTAL Routine 10/08/2017 1 0:04 AM EST POCT GLUCOSE Routine 10/08/2017 10:04 AM EST POCT INR Routine 10/08/2017 9:59 AM EST POC HEMOCUE HEMOGLOBIN Routine 10/08/2017 9:05 AM EST POC LACTATE Routine 10/08/2017 9:03 AM EST RAPID TEG STAT 10/08/2017 9:03 AM EST POC TCO2 Routine 10/08/2017 9:03 AM EST POC SODIUM Routine 10/08/2017 9:03 AM EST POC POTASSIUM Routine 10/08/2017 9:03 AM EST POC PO2 Routine 10/08/2017 9:03 AM EST POC PCO2 Routine 10/08/2017 9:03 AM EST POC O2 SAT Routine 10/08/2017 9:03 AM EST POC HCO3 Routine 10/08/2017 9:03 AM EST POC CHLORIDE Routine 10/08/2017 9:03 AM EST POC BASE EXCESS Routine 10/08/2017 9:03 AM EST POC ANION GAP Routine 10/08/2017 9:03 AM EST POC SAMPLE TYPE Routine 10/08/2017 9:03 AM EST POCT PH Routine 10/08/2017 9:03 AM EST POCT CALCIUM, TOTAL Routine 10/08/2017 9 :03 AM EST PROTIME-INR STAT 10/08/2017 9:03 AM EST FIBRINOGEN STAT 10/08/2017 9:03 AM EST CBC STAT 10/08/2017 9:03 AM EST POCT GLUCOSE Routine 10/08/2017 9:03 AM EST PREPARE RBC, LEUKOREDUCED Routine 10/08/2017 9:01 AM EST POCT INR Routine 10/08/2017 9:00 AM EST TRANSPLANT LIVER 10/08/2017 7:40 AM EST same Special Needs Aleta Worthington [phone] POC GLU MONITORING DEVICE Routine 10/08/2017 6:13 AM EST ANTIBODY IDENTIFICATION Routine 10/08/2017 4:57 AM EST ELIUD ANTI-IGG Routine 10/08/2017 4:54 AM EST ECG 12-LEAD (MUSE) STAT 10/08/2017 1: 03 AM EST XR CHEST PA AND LATERAL STAT 10/08/2017 12:31 AM EST DONOR SPECIFIC ANTIBODY (DSA) Routine 10/08/2017 12:26 AM EST CMV IGG ANTIBODY Routine 10/08/2017 12:2 6 AM EST RAPID TEG STAT 10/08/2017 12:26 AM EST HEPATIC FUNCTION PANEL STAT 10/08/2017 12:26 AM EST RENAL FUNCTION PANEL W/EGFR STAT 10/08/2017 12:26 AM EST HEPATITIS B CORE ANTIBODY STAT 10/08/2017 12:26 AM EST HEPATITIS C ANTIBODY STAT 10/08/2017 12:26 AM EST YURY-SALINAS VIRUS VCA IGG AB Routine 10/08/2017 12:26 AM EST ABO/RH STAT 10/08/2017 12:26 AM EST VITAMIN D 25 HYDROXY Routine 10/08/2017 12:26 AM EST DIFFERENTIAL STAT 10/08/2017 12:26 AM EST HIV 1+2 ANTIBODY/ANTIGEN WITH REFLEX STAT 10/08/2017 12:26 AM EST HEPATITIS B SURFACE ANTIGEN STAT 10/08/2017 12:26 AM EST APTT STAT 10/08/2017 12:26 AM EST PROTIME-INR STAT 10/08/2017 12:26 AM EST CBC STAT 10/08/2017 12:26 AM EST ANTIBODY SCREEN STAT 10/08/2017 12:26 AM EST HEMOGLOBIN A1C Routine 10/08/2017 12:26 AM EST SURGICAL PATHOLOGY EXAM Routine 10/08/2017 12:00 AM EST PREPARE FRESH FROZEN PLASMA Routine 10/07/2017 11:03 PM EST PREPARE PLATELETS, LEUKOREDUCED Routine 10/07/2017 11:03 PM EST PREPARE RBC, LEUKOREDUCED Routine 10/07/2017 11:03 PM EST PERFUSION RECORD - SCAN 10/07/2017 12:00 AM EST EKG - SCAN 10/07/2017 12:00 AM EST LAB 10/07/2017 12:00 AM EST documented in this encounter Results * (ABNORMAL) POC Glucose Monitoring Device (10/27/2017 11:49 AM EDT) POC Glucose Monitoring Device 268(H) 70 - 100 mg/dL 10/27/2017 11:50 AM EDT [facility] Blood specimen (specimen) 10/27/2017 11:49 AM EDT 10/27/2017 11:50 AM EDT us Tami Richardson MD POINT OF CARE TEST ORDERABLES F inal Result Performing Organization Address City/[facility]/ZIP Co de Phone Number [facility] [address] * (ABNORMAL) POC Glucose Monitoring Device (10/27/2017 8:00 AM EDT) POC Glucose Monitoring Device 230(H) 70 - 100 mg/dL 10/27/2017 8:02 AM EDT [facility] Blood specimen (specimen) 10/27/2017 8:00 AM EDT 10/27/2017 8:02 AM EDT us Tami Richardson MD POINT OF CARE TEST ORDERABLES F inal Result [facility] [address] * (ABNORMAL) CBC (10/27/2017 7:04 AM EDT) WBC 5.6 3.8 - 10.8 10E3/uL 10/27/2017 8:15 AM EDT [facility] RBC 2.29(L) 4.20 - 5.80 10E6/uL 10/27/2017 8:15 AM EDT [facility] Hemoglobin 7.8(L) 13.2 - 17.1 g/dL 10/27/2017 8:15 AM EDT [facility] Hematocrit 23.2(L) 38.5 - 50.0 % 10/27/2017 8:15 AM EDT [facility] 101.1(H) 80.0 - 100.0 fL 10/27/2017 8:15 AM EDT [facility] MCH 33.8(H) 27.0 - 33.0 pg 10/27/2017 8:15 AM EDT [facility] MCHC 33.4 32.0 - 36.0 g/dL 10/27/2017 8:15 AM EDT [facility] RDW 18.7(H) 11.0 - 15.0 % 10/27/2017 8:15 AM EDT [facility] Platelets 269 140 - 400 10E3/uL 10/27/2017 8:15 AM EDT [facility] MPV 8.2 7.5 - 11.5 fL 10/27/2017 8:15 AM EDT [facility] Whole blood specimen (specimen) 10/27/2017 7:04 AM EDT 10/27/2017 8:01 AM EDT us Shira Feng EMERGENCY PLANNING AND RESPONSE MANAGER LAB BLOOD ORDERABLES Yoselin l Result [facility] [address] * Magnesium (10/27/2017 7:04 AM EDT) Magnesium 1.8 1.5 - 2.5 mg/dL 10/27/2017 8:38 AM EDT [facility] Plasma specimen (specimen) 10/27/2017 7:04 AM EDT 10/27/2017 8:01 AM EDT us Shira Feng EMERGENCY PLANNING AND RESPONSE MANAGER LAB BLOOD ORDERABLES Yoselin l Result [facility] [address] [place] [address], [facility] [place] * (ABNORMAL) Renal Function Panel w/EGFR (10/27/2017 7:04 AM EDT) Sodium 142 133 - 146 mmol/L 10/27/2017 8:38 AM EDT [facility] Potassium 4.9 3.5 - 5.3 mmol/L 10/27/2017 8:38 AM EDT [facility] Chloride 99 98 - 110 mmol/L 10/27/2017 8:38 AM EDT [facility] CO2 36(H) 21 - 33 mmol/L 10/27/2017 8:38 AM EDT [facility] Anion Gap 7 3 - 16 mmol/L 10/27/2017 8:38 AM EDT [facility] BUN 48(H) 7 - 25 mg/dL 10/27/2017 8:38 AM EDT [facility] Creatinine 1.65(H) 0.60 - 1.30 mg/dL 10/27/2017 8:38 AM EDT [facility] Glucose 224(H) 70 - 100 mg/dL 10/27/2017 8:38 AM EDT [facility] Calcium 9.2 8.6 - 10.3 mg/dL 10/27/2017 8:38 AM EDT [facility] Phosphorus 5.0(H) 2.1 - 4.7 mg/dL 10/27/2017 8:38 AM EDT [facility] Albumin 3.1(L) 3.5 - 5.7 g/dL 10/27/2017 8:38 AM EDT [facility] Osmolality, Calculated 314(H) 278 - 305 mOsm/kg 10/27/2017 8:38 AM EDT [facility] eGFR AA CKD-EPI 58 See note. 8 8:38 AM EDT [facility] eGFR NONAA CKD-EPI 50 See note. 10/27/2017 8:38 AM EDT [facility] Plasma specimen (specimen) 10/27/2017 7:04 AM EDT 10/27/2017 8:01 AM EDT Narrative [facility] - 10/27/2017 8:38 AM EDT As of 10/13/2015 the estimated GFR is [...] equation to estimate glomerular filtration rate. ??Jennifer Merchandise Flow Manager Med. 2009:150(9):604-12 [facility] BLOOD ORDERABLES Yoselin l Result Performing Organization Address City/[facility] Co de Phone Number [facility] [address] * (ABNORMAL) Cyclosporine level (10/27/2017 7:04 AM EDT) Cyclosporine, Blood 576(H) 100 - 400 ng/mL 10/27/2017 1:47 PM EDT [facility] Comment: Detection limit: ??30 ng/mL. ??Performed via chemiluminescent microparticle immunoassay on the [employer] i1000. Whole blood specimen (specimen) 10/27/2017 7:04 AM EDT 10/27/2017 8:01 AM EDT [facility] LAB BLOOD ORDERABLES Yoselin l Result Performing Organization Address City/[facility] Co de Phone Number [facility] [address] * (ABNORMAL) Hepatic Function Panel (10/27/2017 7:04 AM EDT) Total Bilirubin 0.8 0.0 - 1.5 mg/dL 10/27/2017 8:38 AM EDT [facility] Bilirubin, Direct 0.23 0.00 - 0.40 mg/dL 10/27/2017 8:38 AM EDT [facility] AST 13 13 - 39 U/L 10/27/2017 8:38 AM EDT [facility] ALT 19 7 - 52 U/L 10/27/2017 8:38 AM EDT [facility] Alkaline Phosphatase 65 36 - 125 U/L 10/27/2017 8:38 AM EDT [facility] Total Protein 5.9(L) 6.4 - 8.9 g/dL 10/27/2017 8:38 AM EDT [facility] Albumin 3.1(L) 3.5 - 5.7 g/dL 10/27/2017 8:38 AM EDT [facility] Bilirubin, Indirect 0.57 0.00 - 1.10 mg/dL 10/27/2017 8:38 AM EDT [facility] Plasma specimen (specimen) 10/27/2017 7:04 AM EDT 10/27/2017 8:01 AM EDT us David Mendenhall MD LAB BLOOD ORDERABLES Final Resu lt Performing Organization Address [facility]/ZIP Co de Phone Number [facility] [address] * (ABNORMAL) POC Glucose Monitoring Device (10/27/2017 5:40 AM EDT) POC Glucose Monitoring Device 186(H) 70 - 100 mg/dL 10/27/2017 5:49 AM EDT [facility] Blood specimen (specimen) 10/27/2017 5:40 AM EDT 10/27/2017 5:48 AM EDT us Tami Richardson MD POINT OF CARE TEST ORDERABLES F inal Result [facility] [address] * (ABNORMAL) POC Glucose Monitoring Device (10/27/2017 1:01 AM EDT) POC Glucose Monitoring Device 266(H) 70 - 100 mg/dL 10/27/2017 1:02 AM EDT [facility] Blood specimen (specimen) 10/27/2017 1:01 AM EDT 10/27/2017 1:01 AM EDT us Tami Richardson MD POINT OF CARE TEST ORDERABLES F inal Result Performing Organization Address City/[facility]/ZIP Co de Phone Number [facility] [address] [facility] * (ABNORMAL) POC Glucose Monitoring Device (10/26/2017 6:33 PM EDT) POC Glucose Monitoring Device 346(H) 70 - 100 mg/dL 10/26/2017 6:34 PM EDT [facility] Blood specimen (specimen) 10/26/2017 6:33 PM EDT 10/26/2017 6:34 PM EDT us Tami Richardson MD POINT OF CARE TEST ORDERABLES F inal Result Performing Organization Address [facility]/ZIP Co de Phone Number [facility] [address] * (ABNORMAL) POC Glucose Monitoring Device (10/26/2017 4:20 PM EDT) POC Glucose Monitoring Device 388(H) 70 - 100 mg/dL 10/26/2017 4:20 PM EDT [facility] Blood specimen (specimen) 10/26/2017 4:20 PM EDT 10/26/2017 4:20 PM EDT us Tami Richardson MD POINT OF CARE TEST ORDERABLES F inal Result Performing Organization Address City/[facility]/ZIP Co de Phone Number [facility] [address] [facility] * (ABNORMAL) POC Glucose Monitoring Device (10/26/2017 2:55 PM EDT) POC Glucose Monitoring Device 352(H) 70 - 100 mg/dL 10/26/2017 2:56 PM EDT [facility] Blood specimen (specimen) 10/26/2017 2:55 PM EDT 10/26/2017 2:56 PM EDT Tami Richardson MD POINT OF CARE TEST ORDERABLES F inal Result [facility] [address] [place] [address], [facility] [place] * CT Chest WO contrast (10/26/2017 12:55 PM EDT) Anatomical Region Laterality Modality Chest Computed Tomogra phy 10/26/2017 12:3 7 PM EDT Impressions 10/26/2017 3:42 PM EDT IMPRESSION: 1. ??Interval improvement in the bibasilar groundglass and dependent consolidative opacities, favored to represent atelectasis. 2. ??Findings suggestive of underlying anemia. Consider correlation with hemoglobin levels. 3. ??Mild cardiomegaly. 4. ??Borderline enlargement of the central pulmonary arteries, which may be seen in the setting of pulmonary hypertension. Report Verified by: Landen Taylor M.D. at 10/26/2017 3:42 PM EDT Narrative 10/26/2017 3:42 PM EDT Exam: CT CHEST WO CONTRAST dated 10/26/2017 12:37 PM EDT CLINICAL HISTORY: Acute resp illness, >39yo; COMPARISON: 10/20/2017 TECHNIQUE: Multidetector CT imaging was obtained through the chest in the supine position without intravenous contrast. The images were reconstructed with 5 and 1 mm collimation. Additional axial MIP images were reconstructed. FOV: ??44 cm FINDINGS: HEART: Mild cardiomegaly. No significant pericardial effusion. Decreased attenuation of the blood pool in relation to the myocardium, suggesting underlying anemia. THORACIC AORTA: Normal caliber and contour. PULMONARY ARTERIES: Borderline enlargement of the main pulmonary artery measuring up to 3.2 cm. MEDIASTINUM AND DEBBI: No pathologically enlarged lymph nodes are identified. Herniation of intra-abdominal fat through the diaphragmatic hiatus with a small amount of fluid within the hernia sac, unchanged. CHEST WALL AND AXILLA: Mild to moderate bilateral gynecomastia. PLEURA: No pleural effusions or pneumothorax. AIRWAYS & LUNGS: The central airways are patent. Persistent but improved, bibasilar groundglass and dependent consolidative opacities, likely related to atelectasis. The lungs are otherwise clear. However, dilation is slightly limited secondary to respiratory motion artifact. UPPER ABDOMEN: Postoperative changes from prior liver transplantation. Stigmata of portal hypertension including extensive there are series and splenomegaly, overall unchanged. MUSCULOSKELETAL: No suspicious osteolytic or osteoblastic lesions. Procedure Note Landen Taylor MD - 10/26/2017 Exam: CT CHEST WO CONTRAST dated 10/26/2017 12:37 PM EDT CLINICAL HISTORY: Acute resp illness, >39yo; COMPARISON: 10/20/2017 TECHNIQUE: Multidetector CT imaging was obtained through the chest in thesupine position without intravenous contrast. The images werereconstructed with 5 and 1 mm collimation. Additional axial MIP imageswere reconstructed. FOV: 44 cm FINDINGS: HEART: Mild cardiomegaly. No significant pericardial effusion. Decreasedattenuation of the blood pool in relation to the myocardium, suggestingunderlying anemia. THORACIC AORTA: Normal caliber and contour. PULMONARY ARTERIES: Borderline enlargement of the main pulmonary arterymeasuring up to 3.2 cm. MEDIASTINUM AND DEBBI: No pathologically enlarged lymph nodes areidentified. Herniation of intra-abdominal fat through the diaphragmatichiatus with a small amount of fluid within the hernia sac, unchanged. CHEST WALL AND AXILLA: Mild to moderate bilateral gynecomastia. PLEURA: No pleural effusions or pneumothorax. AIRWAYS & LUNGS: The central airways are patent. Persistent but improved,bibasilar groundglass and dependent consolidative opacities, likelyrelated to atelectasis. The lungs are otherwise clear. However, dilationis slightly limited secondary to respiratory motion artifact. UPPER ABDOMEN: Postoperative changes from prior liver transplantation.Stigmata of portal hypertension including extensive there are series andsplenomegaly, overall unchanged. MUSCULOSKELETAL: No suspicious osteolytic or osteoblastic lesions. IMPRESSION: 1. Interval improvement in the bibasilar groundglass and dependentconsolidative opacities, favored to represent atelectasis. 2. Findings suggestive of underlying anemia. Consider correlation withhemoglobin levels. 3. Mild cardiomegaly. 4. Borderline enlargement of the central pulmonary arteries, which may beseen in the setting of pulmonary hypertension. Report Verified by: Lnaden Taylor M.D. at 10/26/2017 3:42 PM EDT Fox Han MD IMG CT ORDERABLES Final Result * (ABNORMAL) POC Glucose Monitoring Device (10/26/2017 8:20 AM EDT) [facility] POC Glucose Monitoring Device 137(H) 70 - 100 mg/dL 10/26/2017 8:22 AM EDT [facility] Blood specimen (specimen) 10/26/2017 8:20 AM EDT 10/26/2017 8:22 AM EDT Tami Richardson MD POINT OF CARE TEST ORDERABLES F inal Result [facility] [address] * (ABNORMAL) CBC (10/26/2017 6:44 AM EDT) Pathologist [facility] WBC 5.5 3.8 - 10.8 10E3/uL 10/26/2017 7:44 AM EDT [facility] RBC 2.22(L) 4.20 - 5.80 10E6/uL 10/26/2017 7:44 AM EDT [facility] Hemoglobin 7.2(L) 13.2 - 17.1 g/dL 10/26/2017 7:44 AM EDT [facility] Hematocrit 22.7(L) 38.5 - 50.0 % 10/26/2017 7:44 AM EDT [facility] MCV 102.2(H) 80.0 - 100.0 fL 10/26/2017 7:44 AM EDT [facility] MCH 32.5 27.0 - 33.0 pg 10/26/2017 7:44 AM EDT [facility] MCHC 31.8(L) 32.0 - 36.0 g/dL 10/26/2017 7:44 AM EDT [facility] RDW 19.0(H) 11.0 - 15.0 % 10/26/2017 7:44 AM EDT [facility] Platelets 269 140 - 400 10E3/uL 10/26/2017 7:44 AM EDT [facility] MPV 8.1 7.5 - 11.5 fL 10/26/2017 7:44 AM EDT [facility] Whole blood specimen (specimen) 10/26/2017 6:44 AM EDT 10/26/2017 7:25 AM EDT Shira Feng EMERGENCY PLANNING AND RESPONSE MANAGER LAB BLOOD ORDERABLES Yoselin l Result [facility] [address] * Magnesium (10/26/2017 6:44 AM EDT) Magnesium 1.9 1.5 - 2.5 mg/dL 10/26/2017 8:13 AM EDT [facility] Plasma specimen (specimen) 10/26/2017 6:44 AM EDT 10/26/2017 7:25 AM EDT Shira Tiffanie Feng [facility] BLOOD ORDERABLES Yoselin l Result Performing Organization Address [facility] Co de Phone Number [facility] [address] * (ABNORMAL) Renal Function Panel w/EGFR (10/26/2017 6:44 AM EDT) Sodium 144 133 - 146 mmol/L 10/26/2017 8:13 AM EDT [facility] Potassium 4.8 3.5 - 5.3 mmol/L 10/26/2017 8:13 AM EDT [facility] Chloride 102 98 - 110 mmol/L 10/26/2017 8:13 AM EDT [facility] CO2 34(H) 21 - 33 mmol/L 10/26/2017 8:13 AM EDT [facility] Anion Gap 8 3 - 16 mmol/L 10/26/2017 8:13 AM EDT [facility] BUN 52(H) 7 - 25 mg/dL 10/26/2017 8:13 AM EDT [facility] Creatinine 1.58(H) 0.60 - 1.30 mg/dL 10/26/2017 8:13 AM EDT [facility] Glucose 104(H) 70 - 100 mg/dL 10/26/2017 8:13 AM EDT [facility] Calcium 9.0 8.6 - 10.3 mg/dL 10/26/2017 8:13 AM EDT [facility] Phosphorus 5.4(H) 2.1 - 4.7 mg/dL 10/26/2017 8:13 AM EDT [facility] Albumin 2.9(L) 3.5 - 5.7 g/dL 10/26/2017 8:13 AM EDT [facility] Osmolality, Calculated 312(H) 278 - 305 mOsm/kg 10/26/2017 8:13 AM EDT [facility] eGFR AA CKD-EPI 61 See note. 8 8:13 AM EDT [facility] eGFR NONAA CKD-EPI 53 See note. 10/26/2017 8:13 AM EDT [facility] Plasma specimen (specimen) 10/26/2017 6:44 AM EDT 10/26/2017 7:25 AM EDT Narrative [facility] - 10/26/2017 8:13 AM EDT As of 10/13/2015 the estimated GFR is [...] equation to estimate glomerular filtration rate. ??Jennifer Merchandise Flow Manager Med. 2009:150(9):604-12 us Shira Feng [facility] BLOOD ORDERABLES Yoselin l Result [facility] [address] * (ABNORMAL) Cyclosporine level (10/26/2017 6:44 AM EDT) Cyclosporine, Blood 58(L) 100 - 400 ng/mL 10/26/2017 1:52 PM EDT [facility] Comment: Detection limit: ??30 ng/mL. ??Performed via chemiluminescent microparticle immunoassay on the [employer] i1000. Whole blood specimen (specimen) 10/26/2017 6:44 AM EDT 10/26/2017 7:25 AM EDT us Shira Feng CNP LAB BLOOD ORDERABLES Yoselin margaret Result Performing Organization Address [facility] Co de Phone Number [facility] [address] * (ABNORMAL) Hepatic Function Panel (10/26/2017 6:44 AM EDT) Total Bilirubin 0.7 0.0 - 1.5 mg/dL 10/26/2017 8:13 AM EDT [facility] Bilirubin, Direct 0.22 0.00 - 0.40 mg/dL 10/26/2017 8:13 AM EDT [facility] AST 11(L) 13 - 39 U/L 10/26/2017 8:13 AM EDT [facility] ALT 16 7 - 52 U/L 10/26/2017 8:13 AM EDT [facility] Alkaline Phosphatase 58 36 - 125 U/L 10/26/2017 8:13 AM EDT [facility] Total Protein 5.3(L) 6.4 - 8.9 g/dL 10/26/2017 8:13 AM EDT [facility] Albumin 2.9(L) 3.5 - 5.7 g/dL 10/26/2017 8:13 AM EDT [facility] Bilirubin, Indirect 0.48 0.00 - 1.10 mg/dL 10/26/2017 8:13 AM EDT [facility] Plasma specimen (specimen) 10/26/2017 6:44 AM EDT 10/26/2017 7:25 AM EDT us David Mendenhall MD LAB BLOOD ORDERABLES Final Resu lt Performing Organization Address [facility]/ZIP Co de Phone Number [facility] [address] * (ABNORMAL) POC Glucose Monitoring Device (10/26/2017 5:34 AM EDT) POC Glucose Monitoring Device 121(H) 70 - 100 mg/dL 10/26/2017 5:37 AM EDT [facility] Blood specimen (specimen) 10/26/2017 5:34 AM EDT 10/26/2017 5:36 AM EDT us Tami Richardson MD POINT OF CARE TEST ORDERABLES F inal Result [facility] [address] [facility] * (ABNORMAL) POC Glucose Monitoring Device (10/25/2017 11:53 PM EDT) POC Glucose Monitoring Device 202(H) 70 - 100 mg/dL 10/25/2017 11:54 PM EDT [facility] Blood specimen (specimen) 10/25/2017 11:53 PM EDT 10/25/2017 11:53 PM EDT us Tami Richardson MD POINT OF CARE TEST ORDERABLES F inal Result Performing Organization Address City/[facility]/ZIP Co de Phone Number [facility] [address] [facility] * (ABNORMAL) POC Glucose Monitoring Device (10/25/2017 8:04 PM EDT) POC Glucose Monitoring Device 204(H) 70 - 100 mg/dL 10/25/2017 8:06 PM EDT [facility] Blood specimen (specimen) 10/25/2017 8:04 PM EDT 10/25/2017 8:06 PM EDT us Tami Richardson MD POINT OF CARE TEST ORDERABLES F inal Result [facility] [address] [facility] * (ABNORMAL) POC Glucose Monitoring Device (10/25/2017 2:23 PM EDT) POC Glucose Monitoring Device 122(H) 70 - 100 mg/dL 10/25/2017 2:27 PM EDT [facility] Blood specimen (specimen) 10/25/2017 2:23 PM EDT 10/25/2017 2:27 PM EDT us Tami Richardson MD POINT OF CARE TEST ORDERABLES F inal Result Performing Organization Address [facility]/ZIP Co de Phone Number [facility] [address] [facility] * (ABNORMAL) POC Glucose Monitoring Device (10/25/2017 1:58 PM EDT) POC Glucose Monitoring Device 59(L) 70 - 100 mg/dL 10/25/2017 2:00 PM EDT [facility] Blood specimen (specimen) 10/25/2017 1:58 PM EDT 10/25/2017 2:00 PM EDT us Tami Richardson MD POINT OF CARE TEST ORDERABLES F inal Result Performing Organization Address [facility] Co de Phone Number [facility] [address] [facility] * (ABNORMAL) POC Glucose Monitoring Device (10/25/2017 1:42 PM EDT) POC Glucose Monitoring Device 55(L) 70 - 100 mg/dL 10/25/2017 2:00 PM EDT [facility] Blood specimen (specimen) 10/25/2017 1:42 PM EDT 10/25/2017 2:00 PM EDT us Tami Richardson MD POINT OF CARE TEST ORDERABLES F inal Result Performing Organization Address City/[facility] Co de Phone Number [facility] [address] [facility] * (ABNORMAL) CBC (10/25/2017 8:12 AM EDT) WBC 7.9 3.8 - 10.8 10E3/uL 10/25/2017 10:18 AM EDT [facility] RBC 2.23(L) 4.20 - 5.80 10E6/uL 10/25/2017 10:18 AM EDT [facility] Hemoglobin 7.5(L) 13.2 - 17.1 g/dL 10/25/2017 10:18 AM EDT [facility] Hematocrit 22.8(L) 38.5 - 50.0 % 10/25/2017 10:18 AM EDT [facility] MCV 102.1(H) 80.0 - 100.0 fL 10/25/2017 10:18 AM EDT [facility] MCH 33.4(H) 27.0 - 33.0 pg 10/25/2017 10:18 AM EDT [facility] MCHC 32.7 32.0 - 36.0 g/dL 10/25/2017 10:18 AM EDT [facility] RDW 19.4(H) 11.0 - 15.0 % 10/25/2017 10:18 AM EDT [facility] Platelets 263 140 - 400 10E3/uL 10/25/2017 10:18 AM EDT [facility] MPV 8.6 7.5 - 11.5 fL 10/25/2017 10:18 AM EDT [facility] Whole blood specimen (specimen) 10/25/2017 8:12 AM EDT 10/25/2017 10:16 AM EDT Shira Feng [facility] BLOOD ORDERABLES Yoselin l Result Performing Organization Address City/[facility]/ZIP Co de Phone Number [facility] [address] * Magnesium (10/25/2017 8:12 AM EDT) Magnesium 1.8 1.5 - 2.5 mg/dL 10/25/2017 8:52 AM EDT [facility] Plasma specimen (specimen) 10/25/2017 8:12 AM EDT 10/25/2017 8:23 AM EDT Shira Tiffanie Feng EMERGENCY PLANNING AND RESPONSE MANAGER LAB BLOOD ORDERABLES Yoselin l Result [facility] [address] * (ABNORMAL) Renal Function Panel w/EGFR (10/25/2017 8:12 AM EDT) Sodium 144 133 - 146 mmol/L 10/25/2017 8:52 AM EDT [facility] Potassium 4.9 3.5 - 5.3 mmol/L 10/25/2017 8:52 AM EDT [facility] Chloride 104 98 - 110 mmol/L 10/25/2017 8:52 AM EDT [facility] CO2 31 21 - 33 mmol/L 10/25/2017 8:52 AM EDT [facility] Anion Gap 9 3 - 16 mmol/L 10/25/2017 8:52 AM EDT [facility] BUN 61(H) 7 - 25 mg/dL 10/25/2017 8:52 AM EDT [facility] Creatinine 1.63(H) 0.60 - 1.30 mg/dL 10/25/2017 8:52 AM EDT [facility] Glucose 122(H) 70 - 100 mg/dL 10/25/2017 8:52 AM EDT [facility] Calcium 9.0 8.6 - 10.3 mg/dL 10/25/2017 8:52 AM EDT [facility] Phosphorus 4.8(H) 2.1 - 4.7 mg/dL 10/25/2017 8:52 AM EDT [facility] Albumin 3.0(L) 3.5 - 5.7 g/dL 10/25/2017 8:52 AM EDT [facility] Osmolality, Calculated 317(H) 278 - 305 mOsm/kg 10/25/2017 8:52 AM EDT [facility] eGFR AA CKD-EPI 59 See note. 8 8:52 AM EDT [facility] eGFR NONAA CKD-EPI 51 See note. 10/25/2017 8:52 AM T [facility] Plasma specimen (specimen) 10/25/2017 8:12 AM EDT 10/25/2017 8:23 AM EDT [facility] - 10/25/2017 8:52 AM EDT As of 10/13/2015 the estimated GFR is [...] equation to estimate glomerular filtration rate. ??Jennifer Merchandise Flow Manager Med. 2009:150(9):604-12 [facility] Tiffanie Tan [facility] BLOOD ORDERABLES Yoselin l Result Performing Organization Address [facility] Co de Phone Number [facility] [address] [facility] * (ABNORMAL) Cyclosporine level (10/25/2017 8:12 AM EDT) [facility] Cyclosporine, Blood 60(L) 100 - 400 ng/mL 10/25/2017 1:17 PM EDT [facility] Comment: Detection limit: ??30 ng/mL. ??Performed via chemiluminescent microparticle immunoassay on the [employer] i1000. Whole blood specimen (specimen) 10/25/2017 8:12 AM EDT 10/25/2017 12:12 PM EDT [facility] LAB BLOOD ORDERABLES Yoselin l Result Performing Organization Address [facility] de Phone Number [facility] [address] * (ABNORMAL) Hepatic Function Panel (10/25/2017 8:12 AM EDT) [facility] Total Bilirubin 0.7 0.0 - 1.5 mg/dL 10/25/2017 8:52 AM EDT [facility] Bilirubin, Direct 0.21 0.00 - 0.40 mg/dL 10/25/2017 8:52 AM EDT [facility] AST 14 13 - 39 U/L 10/25/2017 8:52 AM EDT [facility] ALT 18 7 - 52 U/L 10/25/2017 8:52 AM EDT [facility] Alkaline Phosphatase 61 36 - 125 U/L 10/25/2017 8:52 AM EDT [facility] Total Protein 5.5(L) 6.4 - 8.9 g/dL 10/25/2017 8:52 AM EDT [facility] Albumin 3.0(L) 3.5 - 5.7 g/dL 10/25/2017 8:52 AM EDT [facility] Bilirubin, Indirect 0.49 0.00 - 1.10 mg/dL 10/25/2017 8:52 AM EDT [facility] Plasma specimen (specimen) 10/25/2017 8:12 AM EDT 10/25/2017 8:23 AM EDT David Mendenhall MD LAB BLOOD ORDERABLES Final Resu lt [facility] [address] * (ABNORMAL) POC Glucose Monitoring Device (10/25/2017 8:00 AM EDT) POC Glucose Monitoring Device 140(H) 70 - 100 mg/dL 10/25/2017 8:02 AM EDT [facility] Blood specimen (specimen) 10/25/2017 8:00 AM EDT 10/25/2017 8:01 AM EDT Tami Richardson MD POINT OF CARE TEST ORDERABLES F inal Result Performing Organization Address City/[facility]/ZIP Co de Phone Number [facility] [address] * (ABNORMAL) Sputum Culture plus Stain (10/25/2017 7:12 AM EDT) Gram Stain Result Minimal Oral Contamination <25 Polymorphonuclear Leukocytes; <10 Squamous Epithelial Cells Per Low Power Field [facility] Gram Stain Result Moderate Gram Positive Cocci in Chains and Pairs; [facility] Culture Result Heavy Growth [facility] Culture Result Normal Respiratory Brionna [facility] Organism 2 Scant Growth(A) [facility] Organism 2 Pseudomonas fluorescens(A) [facility] Organism 2 Identified by MALDI-TOF MS(A) [facility] Organism 2 Testing Performed at Laboratory(A) [facility] Sputum specimen (specimen) SPUTUM SPECIMEN / Unknown 10/25/2017 7:12 AM EDT 10/25/2017 7:54 AM EDT Narrative Organism Antibiotic Method Susceptibility Pseudomonas fluorescens Cefepime GREGORY <=1: Susceptible Pseudomonas fluorescens Ciprofloxacin GREGORY <=0.25: Susceptible Pseudomonas fluorescens Gentamicin GREGORY <=1: Susceptible Pseudomonas fluorescens Piperacillin/Tazobactam GREGORY 8: Susceptible Pseudomonas fluorescens Tobramycin GREGORY <=1: Susceptible Fox Han MD MICROBIOLOGY - GENERAL ORDERABLE S Final Result Performing Organization Address City/[facility] Co de Phone Number [facility] [address] [place] [address] * POC Glucose Monitoring Device (10/25/2017 5:48 AM EDT) POC Glucose Monitoring Device 95 70 - 100 mg/dL 10/25/2017 5:49 AM EDT [facility] Blood specimen (specimen) 10/25/2017 5:48 AM EDT 10/25/2017 5:49 AM EDT Tami Richardson MD POINT OF CARE TEST ORDERABLES F inal Result Performing Organization Address [facility] de Phone Number [facility] [address] * (ABNORMAL) POC Glucose Monitoring Device (10/25/2017 5:25 AM EDT) POC Glucose Monitoring Device 62(L) 70 - 100 mg/dL 10/25/2017 5:27 AM EDT [facility] Blood specimen (specimen) 10/25/2017 5:25 AM EDT 10/25/2017 5:27 AM EDT Tami Richardson MD POINT OF CARE TEST ORDERABLES F inal Result Performing Organization Address [facility] de Phone Number [facility] [address] * (ABNORMAL) POC Glucose Monitoring Device (10/24/2017 11:28 PM EDT) POC Glucose Monitoring Device 126(H) 70 - 100 mg/dL 10/24/2017 11:30 PM EDT [facility] Blood specimen (specimen) 10/24/2017 11:28 PM EDT 10/24/2017 11:29 PM EDT Tami Richardson MD POINT OF CARE TEST ORDERABLES F inal Result Performing Organization Address City/[facility]/ZIP Co de Phone Number [facility] [address] [facility] * (ABNORMAL) POC Glucose Monitoring Device (10/24/2017 7:36 PM EDT) POC Glucose Monitoring Device 177(H) 70 - 100 mg/dL 10/24/2017 7:56 PM EDT [facility] Blood specimen (specimen) 10/24/2017 7:36 PM EDT 10/24/2017 7:56 PM EDT Tami Richardson MD POINT OF CARE TEST ORDERABLES F inal Result Performing Organization Address [facility] Co de Phone Number [facility] [address] [facility] * NM Pulmonary V-Q with gas or aerosol (10/24/2017 3:58 PM EDT) Anatomical Region Laterality Modality Chest, Lung Nuclear Medicine 10/24/2017 3:52 PM EDT Impressions 10/24/2017 5:06 PM EDT IMPRESSION: No segmental perfusion defects to suggest pulmonary embolism. Approved by Juaquin Helton on 10/24/2017 4:50 PM EDT I have personally reviewed the images and I agree with this report. Report Verified by: ELEANOR FERRO M.D. at 10/24/2017 5:06 PM EDT Narrative 10/24/2017 5:06 PM EDT NM PULMONARY V-Q WITH GAS OR AEROSOL dated 10/24/2017 3:52 PM EDT. History: dyspnea, requiring oxygen . Radiopharmaceutical: ??Xenon-133 12.3 mCi IH and Tc-99m macroaggregated albumin 5.9 mCi IV. Comparison: Portable chest x-ray from same day and CT chest dated 10/20/2017 Technical: ??Pulmonary ventilation and perfusion imaging studies were performed. ?? Findings: Single breath ventilation images demonstrates decreased ventilation to the medial left upper lung. There is mild air trapping in the right base on the washout images. Perfusion scan demonstrates nonsegmental defects within the central portion of both lungs, likely related to hilar structures. No segmental perfusion defects are demonstrated. Procedure Note Eleanor Ferro MD - 10/24/2017 NM PULMONARY V-Q WITH GAS OR AEROSOL dated 10/24/2017 3:52 PM EDT. History: dyspnea, requiring oxygen . Radiopharmaceutical: Xenon-133 12.3 mCi IH and Tc-99m macroaggregatedalbumin 5.9 mCi IV. Comparison: Portable chest x-ray from same day and CT chest date10/20/2017 Technical: Pulmonary ventilation and perfusion imaging studies wereperformed. Findings: Single breath ventilation images demonstrates decreased ventilation to themedial left upper lung. There is mild air trapping in the right base onthe washout images. Perfusion scan demonstrates nonsegmental defects within the centralportion of both lungs, likely related to hilar structures. No segmentalperfusion defects are demonstrated. IMPRESSION: No segmental perfusion defects to suggest pulmonary embolism. Approved by Juaquin Helton on 10/24/2017 4:50 PM EDT I have personally reviewed the images and I agree with this report. Report Verified by: ELEANOR FERRO M.D. at 10/24/2017 5:06 PM EDT Erica Acevedo MD [facility] [place] ORDER[place]LES Final Resul t * Magnesium (10/24/2017 3:25 PM EDT) Magnesium 1.9 1.5 - 2.5 mg/dL 10/24/2017 4:08 PM EDT [facility] Plasma specimen (specimen) 10/24/2017 3:25 PM EDT 10/24/2017 3:38 PM EDT Shira Feng [facility] BLOOD ORDERABLES Yoselin robles Result [facility] [address] [place] [address], [facility] [place] * (ABNORMAL) Renal Function Panel w/EGFR (10/24/2017 3:25 PM EDT) Sodium 140 133 - 146 mmol/L 10/24/2017 4:08 PM EDT [facility] Potassium 5.6(H) 3.5 - 5.3 mmol/L 10/24/2017 4:08 PM EDT [facility] Chloride 102 98 - 110 mmol/L 10/24/2017 4:08 PM EDT [facility] CO2 31 21 - 33 mmol/L 10/24/2017 4:08 PM EDT [facility] Anion Gap 7 3 - 16 mmol/L 10/24/2017 4:08 PM EDT [facility] BUN 64(H) 7 - 25 mg/dL 10/24/2017 4:08 PM EDT [facility] Creatinine 1.71(H) 0.60 - 1.30 mg/dL 10/24/2017 4:08 PM EDT [facility] Glucose 301(H) 70 - 100 mg/dL 10/24/2017 4:08 PM EDT [facility] Calcium 8.7 8.6 - 10.3 mg/dL 10/24/2017 4:08 PM EDT [facility] Phosphorus 4.4 2.1 - 4.7 mg/dL 10/24/2017 4:08 PM EDT [facility] Albumin 2.9(L) 3.5 - 5.7 g/dL 10/24/2017 4:08 PM EDT [facility] Osmolality, Calculated 320(H) 278 - 305 mOsm/kg 10/24/2017 4:08 PM EDT [facility] eGFR AA CKD-EPI 56 See note. 8 4:08 PM EDT [facility] eGFR NONAA CKD-EPI 48 See note. 10/24/2017 4:08 PM EDT [facility] Plasma specimen (specimen) 10/24/2017 3:25 PM EDT 10/24/2017 3:38 PM EDT Narrative [facility] - 10/24/2017 4:08 PM EDT As of 10/13/2015 the estimated GFR is [...] equation to estimate glomerular filtration rate. ??Jennifer Merchandise Flow Manager Med. 2009:150(9):604-12 [facility] BLOOD ORDERABLES Yoselin l Result Performing Organization Address City/[facility] Co de Phone Number [facility] [address] [facility] * (ABNORMAL) Cyclosporine level (10/24/2017 3:25 PM EDT) Pathologist [facility] [place] Cyclosporine, Blood 90(L) 100 - 400 ng/mL 10/25/2017 1:17 PM EDT [facility] Comment: Detection limit: ??30 ng/mL. ??Performed via chemiluminescent microparticle immunoassay on the [employer] i1000. Whole blood specimen (specimen) 10/24/2017 3:25 PM EDT 10/24/2017 3:38 PM EDT [facility] BLOOD ORDERABLES Yoselin l Result Performing Organization Address [facility] Co de Phone Number [facility] [address] [facility] * (ABNORMAL) Hepatic Function Panel (10/24/2017 3:25 PM EDT) Total Bilirubin 0.7 0.0 - 1.5 mg/dL 10/24/2017 4:08 PM EDT [facility] Bilirubin, Direct 0.34 0.00 - 0.40 mg/dL 10/24/2017 4:08 PM EDT [facility] AST 11(L) 13 - 39 U/L 10/24/2017 4:08 PM EDT [facility] ALT 20 7 - 52 U/L 10/24/2017 4:08 PM EDT [facility] Alkaline Phosphatase 66 36 - 125 U/L 10/24/2017 4:08 PM EDT [facility] Total Protein 5.3(L) 6.4 - 8.9 g/dL 10/24/2017 4:08 PM EDT [facility] Albumin 2.9(L) 3.5 - 5.7 g/dL 10/24/2017 4:08 PM EDT [facility] Bilirubin, Indirect 0.36 0.00 - 1.10 mg/dL 10/24/2017 4:08 PM EDT [facility] Plasma specimen (specimen) 10/24/2017 3:25 PM EDT 10/24/2017 3:38 PM EDT us David Mendenhall MD LAB BLOOD ORDERABLES Final Resu lt [facility] [address] * (ABNORMAL) POC Glucose Monitoring Device (10/24/2017 2:55 PM EDT) [facility] POC Glucose Monitoring Device 310(H) 70 - 100 mg/dL 10/24/2017 3:06 PM EDT [facility] Blood specimen (specimen) 10/24/2017 2:55 PM EDT 10/24/2017 3:06 PM EDT us Tami Richardson MD POINT OF CARE TEST ORDERABLES F inal Result Performing Organization Address City/[facility]/ZIP Co de Phone Number [facility] [address] * VASC Venous Duplex Lower Extremity Bilateral (10/24/2017 2:13 PM EDT) Anatomical Region Laterality Modality Vascular Ultrasound 10/24/2017 4:36 PM EDT Narrative 10/24/2017 4:36 PM EDT Bilateral: B-mode imaging demonstrates normal [...] contralateral CFV is routinely examined. Procedure Note Destin Haney MD - 10/24/2017 Bilateral: B-mode imaging demonstrates normal compressibility of [...] studies, the contralateral CFV is routinely examined. Shira Feng EMERGENCY PLANNING AND RESPONSE MANAGER CV VASCULAR ORDERABLES Fi nal Result * X-ray Portable Chest (10/24/2017 11:01 AM EDT) Anatomical Region Laterality Modality Chest Radiographic Sobia ging 10/24/2017 10:5 2 AM EDT Impressions 10/24/2017 11:09 AM EDT IMPRESSION: Limited exam with grossly clear lungs. Report Verified by: CARLOS EDUARDO OLIVO M.D. at 10/24/2017 11:09 AM EDT Narrative 10/24/2017 11:09 AM EDT Exam: XR PORTABLE CHEST. Indication: Cough. COMPARISON: October 23, 2017. FINDINGS: Lung volumes are low, patient's rotated with lungs are grossly clear. No effusion or pneumothorax. Heart and mediastinal contours are grossly stable. Procedure Note Carlos Eduardo Olivo MD - 10/24/2017 Exam: XR PORTABLE CHEST. Indication: Cough. COMPARISON: October 23, 2017. FINDINGS: Lung volumes are low, patient's rotated with lungs are grossly clear. Noeffusion or pneumothorax. Heart and mediastinal contours are grosslystable. IMPRESSION: Limited exam with grossly clear lungs. Report Verified by: CARLOS EDUARDO OLIVO M.D. at 10/24/2017 11:09 AM EDT Fox Han MD IMG DIAGNOSTIC IMAGING ORDERABLE S Final Result * POC Glucose Monitoring Device (10/24/2017 8:42 AM EDT) [facility] POC Glucose Monitoring Device 87 70 - 100 mg/dL 10/24/2017 8:52 AM EDT [facility] Blood specimen (specimen) 10/24/2017 8:42 AM EDT 10/24/2017 8:52 AM EDT Tami Richardson MD POINT OF CARE TEST ORDERABLES F inal Result [facility] [address] * (ABNORMAL) CBC (10/24/2017 7:25 AM EDT) [facility] WBC 6.5 3.8 - 10.8 10E3/uL 10/24/2017 8:45 AM EDT [facility] RBC 2.09(L) 4.20 - 5.80 10E6/uL 10/24/2017 8:45 AM EDT [facility] Hemoglobin 7.1(L) 13.2 - 17.1 g/dL 10/24/2017 8:45 AM EDT [facility] Hematocrit 22.0(L) 38.5 - 50.0 % 10/24/2017 8:45 AM EDT [facility] MCV 105.4(H) 80.0 - 100.0 fL 10/24/2017 8:45 AM EDT [facility] MCH 34.0(H) 27.0 - 33.0 pg 10/24/2017 8:45 AM EDT [facility] MCHC 32.3 32.0 - 36.0 g/dL 10/24/2017 8:45 AM EDT [facility] RDW 19.8(H) 11.0 - 15.0 % 10/24/2017 8:45 AM EDT [facility] Platelets 199 140 - 400 10E3/uL 10/24/2017 8:45 AM EDT [facility] MPV 8.7 7.5 - 11.5 fL 10/24/2017 8:45 AM EDT [facility] Whole blood specimen (specimen) 10/24/2017 7:25 AM EDT 10/24/2017 7:40 AM EDT us Shira Feng EMERGENCY PLANNING AND RESPONSE MANAGER LAB BLOOD ORDERABLES Yoselin robles Result [facility] [address] [place] [address], [facility] [place] * RACHAEL RHYTHM STRIP - SCAN (10/24/2017 7:05 AM EDT) us Scanning Uchhim SCAN DOCS - NO RESULTS Final Res ult * (ABNORMAL) Urinalysis w/Reflex to Microscop, No Culture (10/23/2017 11:32 PM EDT) Color, UA Yellow Yellow,Straw 10/24/2017 12:18 AM EDT [facility] Clarity, UA Clear Clear 10/24/2017 12:18 AM EDT [facility] Specific [place], UA 1.016 1.005 - 1.035 10/24/2017 12:18 AM EDT [facility] pH, UA 5.0 5.0 - 8.0 10/24/2017 12:18 AM EDT [facility] Protein, UA Negative Negative mg/dL 10/24/2017 12:18 AM EDT [facility] Glucose, UA Negative Negative mg/dL 10/24/2017 12:18 AM EDT [facility] Ketones, UA Negative Negative mg/dL 10/24/2017 12:18 AM EDT [facility] Bilirubin, UA Negative Negative 10/24/2017 12:18 AM EDT [facility] Blood, UA Negative Negative 10/24/2017 12:18 AM EDT [facility] Nitrite, UA Negative Negative 10/24/2017 12:18 AM EDT [facility] Urobilinogen, UA 2.0(H) 0.2 - 1.9 mg/dL 10/24/2017 12:18 AM EDT [facility] Leukocyte Esterase, UA Negative Negative 10/24/2017 12:18 AM EDT [facility] Urine specimen (specimen) 10/23/2017 11:32 PM EDT 10/23/2017 11:45 PM EDT Narrative [facility] - 10/24/2017 12:18 AM EDT Microscopic testing is not performed when the dipstick is negative for blood, leukocyte, protein and nitrite. us Fox Han MD URINE ORDERABLES Final Result Performing Organization Address [facility]/ZIP Co de Phone Number [facility] [address] * (ABNORMAL) POC Glucose Monitoring Device (10/23/2017 11:24 PM EDT) POC Glucose Monitoring Device 234(H) 70 - 100 mg/dL 10/23/2017 11:51 PM EDT [facility] Blood specimen (specimen) 10/23/2017 11:24 PM EDT 10/23/2017 11:51 PM EDT Tami Richardson MD POINT OF CARE TEST ORDERABLES F inal Result Performing Organization Address [facility]/ZIP Co de Phone Number [facility] [address] [facility] * EKG REPORT - SCAN (10/23/2017 9:31 PM EDT) us Scanning Uchhim SCAN DOCS - NO RESULTS Final Res ult * (ABNORMAL) POC Glucose Monitoring Device (10/23/2017 8:54 PM EDT) POC Glucose Monitoring Device 214(H) 70 - 100 mg/dL 10/23/2017 9:06 PM EDT [facility] Blood specimen (specimen) 10/23/2017 8:54 PM EDT 10/23/2017 9:06 PM EDT Tami Richardson MD POINT OF CARE TEST ORDERABLES F inal Result Performing Organization Address [facility]/ZIP Co de Phone Number [facility] [address] [facility] * Blood Culture-Peripheral (10/23/2017 5:46 PM EDT) Culture Result No Growth After 5 Days [facility] Blood specimen (specimen) BLOOD SPECIMEN / Unknown 10/23/2017 5:46 PM EDT 10/23/2017 6:23 PM EDT Fox Han MD MICROBIOLOGY - GENERAL ORDERABLE S Final Result Performing Organization Address [facility] Co de Phone Number [facility] [address] [place] [address]. [address] * (ABNORMAL) POC Glucose Monitoring Device (10/23/2017 5:39 PM EDT) POC Glucose Monitoring Device 151(H) 70 - 100 mg/dL 10/23/2017 5:41 PM EDT [facility] Blood specimen (specimen) 10/23/2017 5:39 PM EDT 10/23/2017 5:41 PM EDT Tami Richardson MD POINT OF CARE TEST ORDERABLES F inal Result Performing Organization Address City/[facility] Co de Phone Number [facility] [address] [facility] * X-ray Portable Chest (10/23/2017 5:01 PM EDT) Anatomical Region Laterality Modality Chest Radiographic Sobia ging 10/23/2017 4:51 PM EDT Impressions 10/23/2017 5:05 PM EDT IMPRESSION: Improved bibasilar airspace disease. Report Verified by: CARLOS EDUARDO ROSS MD at 10/23/2017 5:05 PM EDT Narrative 10/23/2017 5:05 PM EDT Exam: XR PORTABLE CHEST dated 10/23/2017 4:51 PM EDT CLINICAL HISTORY: Difficulty breathing; COMPARISON: CT chest dated 10/20/2017, chest x-ray dated 2017 FINDINGS: There is improved aeration within the bilateral lung bases. No pneumothorax or pleural effusion. The cardiomediastinal silhouette is unchanged. Procedure Note Carlos Eduardo Ross MD - 10/23/2017 Exam: XR PORTABLE CHEST dated 10/23/2017 4:51 PM EDT CLINICAL HISTORY: Difficulty breathing; COMPARISON: CT chest dated 10/20/2017, chest x-ray dated 2017 FINDINGS: There is improved aeration within the bilateral lung bases. Nopneumothorax or pleural effusion. The cardiomediastinal silhouette isunchanged. IMPRESSION: Improved bibasilar airspace disease. Report Verified by: CARLOS EDUARDO ROSS MD at 10/23/2017 5:05 PM EDT Fox Han MD IMG DIAGNOSTIC IMAGING ORDERABLE S Final Result * (ABNORMAL) POC Glucose Monitoring Device (10/23/2017 1:36 PM EDT) POC Glucose Monitoring Device 133(H) 70 - 100 mg/dL 10/23/2017 1:38 PM EDT [facility] Blood specimen (specimen) 10/23/2017 1:36 PM EDT 10/23/2017 1:38 PM EDT Tami Richardson MD POINT OF CARE TEST ORDERABLES F inal Result [facility] [address] [place] [address], [facility] [place] * POC Glucose Monitoring Device (10/23/2017 8:09 AM EDT) POC Glucose Monitoring Device 77 70 - 100 mg/dL 10/23/2017 8:11 AM EDT [facility] Blood specimen (specimen) 10/23/2017 8:09 AM EDT 10/23/2017 8:11 AM EDT Tami Richardson MD POINT OF CARE TEST ORDERABLES F inal Result Performing Organization Address [facility] Co de Phone Number [facility] [address] * (ABNORMAL) Tacrolimus level (10/23/2017 6:13 AM EDT) Tacrolimus Lvl 3.9(L) 5.0 - 20.0 ng/mL 10/23/2017 11:17 AM EDT [facility] Comment: Detection limit: ??2 ng/mL. ??Performed via chemiluminescent microparticle immunoassay on the [employer] i1000. Whole blood specimen (specimen) 10/23/2017 6:13 AM EDT 10/23/2017 6:28 AM EDT us David Mendenhall MD LAB BLOOD ORDERABLES Final Resu lt Performing Organization Address [facility] de Phone Number [facility] [address] [facility] * (ABNORMAL) Renal Function Panel w/EGFR (10/23/2017 6:13 AM EDT) Sodium 142 133 - 146 mmol/L 10/23/2017 7:08 AM EDT [facility] Potassium 4.7 3.5 - 5.3 mmol/L 10/23/2017 7:08 AM EDT [facility] Chloride 104 98 - 110 mmol/L 10/23/2017 7:08 AM EDT [facility] CO2 31 21 - 33 mmol/L 10/23/2017 7:08 AM EDT [facility] Anion Gap 7 3 - 16 mmol/L 10/23/2017 7:08 AM EDT [facility] BUN 66(H) 7 - 25 mg/dL 10/23/2017 7:08 AM EDT [facility] Creatinine 1.91(H) 0.60 - 1.30 mg/dL 10/23/2017 7:08 AM EDT [facility] Glucose 95 70 - 100 mg/dL 10/23/2017 7:08 AM EDT [facility] Calcium 9.1 8.6 - 10.3 mg/dL 10/23/2017 7:08 AM EDT [facility] Phosphorus 3.9 2.1 - 4.7 mg/dL 10/23/2017 7:08 AM EDT [facility] Albumin 3.0(L) 3.5 - 5.7 g/dL 10/23/2017 7:08 AM EDT [facility] Osmolality, Calculated 313(H) 278 - 305 mOsm/kg 10/23/2017 7:08 AM EDT [facility] eGFR AA CKD-EPI 49 See note. 8 7:08 AM EDT [facility] eGFR NONAA CKD-EPI 42 See note. 10/23/2017 7:08 AM EDT [facility] Plasma specimen (specimen) 10/23/2017 6:13 AM EDT 10/23/2017 6:28 AM EDT Narrative [facility] - 10/23/2017 7:08 AM EDT As of 10/13/2015 the estimated GFR is [...] equation to estimate glomerular filtration rate. ??Jennifer Merchandise Flow Manager Med. 2009:150(9):604-12 us David Mendenhall MD LAB BLOOD ORDERABLES Final Resu lt [facility] [address] [place] [address], [facility] [place] * Magnesium (10/23/2017 6:13 AM EDT) Magnesium 2.2 1.5 - 2.5 mg/dL 10/23/2017 7:08 AM EDT [facility] Plasma specimen (specimen) 10/23/2017 6:13 AM EDT 10/23/2017 6:28 AM EDT us David Mendenhall MD LAB BLOOD ORDERABLES Final Resu lt Performing Organization Address [facility] Co de Phone Number [facility] [address] * (ABNORMAL) Hepatic Function Panel (10/23/2017 6:13 AM EDT) Total Bilirubin 0.7 0.0 - 1.5 mg/dL 10/23/2017 7:08 AM EDT [facility] Bilirubin, Direct 0.16 0.00 - 0.40 mg/dL 10/23/2017 7:08 AM EDT [facility] AST 13 13 - 39 U/L 10/23/2017 7:08 AM EDT [facility] ALT 24 7 - 52 U/L 10/23/2017 7:08 AM EDT [facility] Alkaline Phosphatase 71 36 - 125 U/L 10/23/2017 7:08 AM EDT [facility] Total Protein 5.7(L) 6.4 - 8.9 g/dL 10/23/2017 7:08 AM EDT [facility] Albumin 3.0(L) 3.5 - 5.7 g/dL 10/23/2017 7:08 AM EDT [facility] Bilirubin, Indirect 0.54 0.00 - 1.10 mg/dL 10/23/2017 7:08 AM EDT [facility] Plasma specimen (specimen) 10/23/2017 6:13 AM EDT 10/23/2017 6:28 AM EDT us David Mendenhall MD LAB BLOOD ORDERABLES Final Resu lt Performing Organization Address [facility]/ZIP Co de Phone Number [facility] [address] [facility] * (ABNORMAL) CBC (10/23/2017 6:13 AM EDT) WBC 8.4 3.8 - 10.8 10E3/uL 10/23/2017 6:36 AM EDT [facility] RBC 2.23(L) 4.20 - 5.80 10E6/uL 10/23/2017 6:36 AM EDT [facility] Hemoglobin 7.7(L) 13.2 - 17.1 g/dL 10/23/2017 6:36 AM EDT [facility] Hematocrit 23.1(L) 38.5 - 50.0 % 10/23/2017 6:36 AM EDT [facility] MCV 103.3(H) 80.0 - 100.0 fL 10/23/2017 6:36 AM EDT [facility] MCH 34.5(H) 27.0 - 33.0 pg 10/23/2017 6:36 AM EDT [facility] MCHC 33.4 32.0 - 36.0 g/dL 10/23/2017 6:36 AM EDT [facility] RDW 19.9(H) 11.0 - 15.0 % 10/23/2017 6:36 AM EDT [facility] Platelets 247 140 - 400 10E3/uL 10/23/2017 6:36 AM EDT [facility] MPV 8.6 7.5 - 11.5 fL 10/23/2017 6:36 AM EDT [facility] Whole blood specimen (specimen) 10/23/2017 6:13 AM EDT 10/23/2017 6:28 AM EDT us David Mendenhall MD LAB BLOOD ORDERABLES Final Resu lt [facility] [address] * (ABNORMAL) POC Glucose Monitoring Device (10/22/2017 8:21 PM EDT) [facility] POC Glucose Monitoring Device 276(H) 70 - 100 mg/dL 10/22/2017 8:29 PM EDT [facility] Blood specimen (specimen) 10/22/2017 8:21 PM EDT 10/22/2017 8:29 PM EDT us Tami Richardsno MD POINT OF CARE TEST ORDERABLES F inal Result [facility] [address] * (ABNORMAL) POC Glucose Monitoring Device (10/22/2017 6:36 PM EDT) POC Glucose Monitoring Device 302(H) 70 - 100 mg/dL 10/22/2017 6:42 PM EDT [facility] Blood specimen (specimen) 10/22/2017 6:36 PM EDT 10/22/2017 6:42 PM EDT us Tami Richardson MD POINT OF CARE TEST ORDERABLES F inal Result [facility] [address] [facility] * (ABNORMAL) POC Glucose Monitoring Device (10/22/2017 1:56 PM EDT) POC Glucose Monitoring Device 189(H) 70 - 100 mg/dL 10/22/2017 2:03 PM EDT [facility] Blood specimen (specimen) 10/22/2017 1:56 PM EDT 10/22/2017 2:03 PM EDT us Tami Richardson MD POINT OF CARE TEST ORDERABLES F inal Result Performing Organization Address City/[facility]/ZIP Co de Phone Number [facility] [address] [facility] * (ABNORMAL) POC Glucose Monitoring Device (10/22/2017 8:20 AM EDT) POC Glucose Monitoring Device 220(H) 70 - 100 mg/dL 10/22/2017 8:33 AM EDT [facility] Blood specimen (specimen) 10/22/2017 8:20 AM EDT 10/22/2017 8:33 AM EDT us Tami Richardson MD POINT OF CARE TEST ORDERABLES F inal Result [facility] [address] [place] [address], [facility] [place] * Tacrolimus level (10/22/2017 6:41 AM EDT) Tacrolimus Lvl 7.0 5.0 - 20.0 ng/mL 10/22/2017 1:45 PM EDT [facility] Comment: Detection limit: ??2 ng/mL. ??Performed via chemiluminescent microparticle immunoassay on the TotalHouse[employer] Family Preservation Officer i1000. Whole blood specimen (specimen) 10/22/2017 6:41 AM EDT 10/22/2017 7:23 AM EDT us David Mendenhall MD LAB BLOOD ORDERABLES Final Resu lt [facility] [address] * (ABNORMAL) Renal Function Panel w/EGFR (10/22/2017 6:41 AM EDT) Sodium 140 133 - 146 mmol/L 10/22/2017 7:56 AM EDT [facility] Potassium 4.8 3.5 - 5.3 mmol/L 10/22/2017 7:56 AM EDT [facility] Chloride 102 98 - 110 mmol/L 10/22/2017 7:56 AM EDT [facility] CO2 30 21 - 33 mmol/L 10/22/2017 7:56 AM EDT [facility] Anion Gap 8 3 - 16 mmol/L 10/22/2017 7:56 AM EDT [facility] BUN 75(H) 7 - 25 mg/dL 10/22/2017 7:56 AM EDT [facility] Creatinine 2.15(H) 0.60 - 1.30 mg/dL 10/22/2017 7:56 AM EDT [facility] Glucose 175(H) 70 - 100 mg/dL 10/22/2017 7:56 AM EDT [facility] Calcium 8.8 8.6 - 10.3 mg/dL 10/22/2017 7:56 AM EDT [facility] Phosphorus 5.4(H) 2.1 - 4.7 mg/dL 10/22/2017 7:56 AM EDT [facility] Albumin 2.9(L) 3.5 - 5.7 g/dL 10/22/2017 7:56 AM EDT [facility] Osmolality, Calculated 317(H) 278 - 305 mOsm/kg 10/22/2017 7:56 AM EDT [facility] eGFR AA CKD-EPI 42 See note. 8 7:56 AM EDT [facility] eGFR NONAA CKD-EPI 36 See note. 10/22/2017 7:56 AM EDT [facility] Plasma specimen (specimen) 10/22/2017 6:41 AM EDT 10/22/2017 7:23 AM EDT Narrative [facility] - 10/22/2017 7:56 AM EDT As of 10/13/2015 the estimated GFR is [...] equation to estimate glomerular filtration rate. ??Jennifer Merchandise Flow Manager Med. 2009:150(9):604-12 us David Mendenhall MD LAB BLOOD ORDERABLES Final Resu lt Performing Organization Address [facility] Co de Phone Number [facility] [address] * Magnesium (10/22/2017 6:41 AM EDT) Magnesium 2.3 1.5 - 2.5 mg/dL 10/22/2017 7:56 AM EDT [facility] Plasma specimen (specimen) 10/22/2017 6:41 AM EDT 10/22/2017 7:23 AM EDT us David Mendenhall MD LAB BLOOD ORDERABLES Final Resu lt Performing Organization Address [facility] Co de Phone Number [facility] [address] * (ABNORMAL) Hepatic Function Panel (10/22/2017 6:41 AM EDT) Total Bilirubin 0.7 0.0 - 1.5 mg/dL 10/22/2017 7:56 AM EDT [facility] Bilirubin, Direct 0.24 0.00 - 0.40 mg/dL 10/22/2017 7:56 AM EDT [facility] AST 9(L) 13 - 39 U/L 10/22/2017 7:56 AM EDT [facility] ALT 26 7 - 52 U/L 10/22/2017 7:56 AM EDT [facility] Alkaline Phosphatase 62 36 - 125 U/L 10/22/2017 7:56 AM EDT [facility] Total Protein 5.3(L) 6.4 - 8.9 g/dL 10/22/2017 7:56 AM EDT [facility] Albumin 2.9(L) 3.5 - 5.7 g/dL 10/22/2017 7:56 AM EDT [facility] Bilirubin, Indirect 0.46 0.00 - 1.10 mg/dL 10/22/2017 7:56 AM EDT [facility] Plasma specimen (specimen) 10/22/2017 6:41 AM EDT 10/22/2017 7:23 AM EDT us David Mendenhall MD LAB BLOOD ORDERABLES Final Resu lt [facility] [address] * (ABNORMAL) CBC (10/22/2017 6:41 AM EDT) WBC 7.8 3.8 - 10.8 10E3/uL 10/22/2017 7:40 AM EDT [facility] RBC 2.12(L) 4.20 - 5.80 10E6/uL 10/22/2017 7:40 AM EDT [facility] Hemoglobin 7.2(L) 13.2 - 17.1 g/dL 10/22/2017 7:40 AM EDT [facility] Hematocrit 22.0(L) 38.5 - 50.0 % 10/22/2017 7:40 AM EDT [facility] MCV 103.6(H) 80.0 - 100.0 fL 10/22/2017 7:40 AM EDT [facility] MCH 34.1(H) 27.0 - 33.0 pg 10/22/2017 7:40 AM EDT [facility] MCHC 33.0 32.0 - 36.0 g/dL 10/22/2017 7:40 AM EDT [facility] RDW 20.5(H) 11.0 - 15.0 % 10/22/2017 7:40 AM EDT [facility] Platelets 172 140 - 400 10E3/uL 10/22/2017 7:40 AM EDT [facility] MPV 9.1 7.5 - 11.5 fL 10/22/2017 7:40 AM EDT [facility] Whole blood specimen (specimen) 10/22/2017 6:41 AM EDT 10/22/2017 7:23 AM EDT us David Mendenhall MD LAB BLOOD ORDERABLES Final Resu lt Performing Organization Address City/[facility]/ZIP Co de Phone Number [facility] [address] * (ABNORMAL) POC Glucose Monitoring Device (10/21/2017 9:08 PM EST) POC Glucose Monitoring Device 331(H) 70 - 100 mg/dL 10/21/2017 9:10 PM EST [facility] Blood specimen (specimen) 10/21/2017 9:08 PM EST 10/21/2017 9:10 PM EST us Tami Richardson MD POINT OF CARE TEST ORDERABLES F inal Result [facility] [address] * (ABNORMAL) POC Glucose Monitoring Device (10/21/2017 6:32 PM EST) POC Glucose Monitoring Device 316(H) 70 - 100 mg/dL 10/21/2017 6:33 PM EST [facility] Blood specimen (specimen) 10/21/2017 6:32 PM EST 10/21/2017 6:33 PM EST us Tami Richardson MD POINT OF CARE TEST ORDERABLES F inal Result Performing Organization Address City/[facility]/ZIP Co de Phone Number [facility] [address] [facility] * (ABNORMAL) POC Glucose Monitoring Device (10/21/2017 12:54 PM EST) POC Glucose Monitoring Device 348(H) 70 - 100 mg/dL 10/21/2017 12:55 PM EST [facility] Blood specimen (specimen) 10/21/2017 12:54 PM EST 10/21/2017 12:55 PM EST Tami Richardson MD POINT OF CARE TEST ORDERABLES F inal Result Performing Organization Address [facility] Co de Phone Number [facility] [address] [facility] * (ABNORMAL) POC Glucose Monitoring Device (10/21/2017 8:15 AM EST) POC Glucose Monitoring Device 319(H) 70 - 100 mg/dL 10/21/2017 8:17 AM EST [facility] Blood specimen (specimen) 10/21/2017 8:15 AM EST 10/21/2017 8:17 AM EST Tami Richardson MD POINT OF CARE TEST ORDERABLES F inal Result Performing Organization Address [facility] Co de Phone Number [facility] [address] [facility] * Tacrolimus level (10/21/2017 6:42 AM EST) Tacrolimus Lvl 12.6 5.0 - 20.0 ng/mL 10/21/2017 1:42 PM EST [facility] Comment: Detection limit: ??2 ng/mL. ??Performed via chemiluminescent microparticle immunoassay on the [employer] Family Preservation Officer i1000. Whole blood specimen (specimen) 10/21/2017 6:42 AM EST 10/21/2017 7:12 AM EST us David Mendenhall MD LAB BLOOD ORDERABLES Final Resu lt [facility] [address] [place] [address], [facility] [place] * (ABNORMAL) Renal Function Panel w/EGFR (10/21/2017 6:42 AM EST) Sodium 135 133 - 146 mmol/L 10/21/2017 7:41 AM EST [facility] Potassium 4.7 3.5 - 5.3 mmol/L 10/21/2017 7:41 AM [facility] Chloride 99 98 - 110 mmol/L 10/21/2017 7:41 AM [facility] CO2 29 21 - 33 mmol/L 10/21/2017 7:41 AM [facility] Anion Gap 7 3 - 16 mmol/L 10/21/2017 7:41 AM [facility] BUN 72(H) 7 - 25 mg/dL 10/21/2017 7:41 AM [facility] Creatinine 2.40(H) 0.60 - 1.30 mg/dL 10/21/2017 7:41 AM [facility] Glucose 304(H) 70 - 100 mg/dL 10/21/2017 7:41 AM [facility] Calcium 8.4(L) 8.6 - 10.3 mg/dL 10/21/2017 7:41 AM [facility] Phosphorus 6.0(H) 2.1 - 4.7 mg/dL 10/21/2017 7:41 AM [facility] Albumin 2.5(L) 3.5 - 5.7 g/dL 10/21/2017 7:41 AM [facility] Osmolality, Calculated 313(H) 278 - 305 mOsm/kg 10/21/2017 7:41 AM [facility] eGFR AA CKD-EPI 37 See note. 8 7:41 AM [facility] eGFR NONAA CKD-EPI 32 See note. 10/21/2017 7:41 AM [facility] Plasma specimen (specimen) 10/21/2017 6:42 AM EST 10/21/2017 7:12 AM EST [facility] - 10/21/2017 7:41 AM EST As of 10/13/2015 the estimated GFR is [...] equation to estimate glomerular filtration rate. ??Jennifer Merchandise Flow Manager Med. 2009:150(9):604-12 us David Mendenhall MD LAB BLOOD ORDERABLES Final Resu lt Performing Organization Address [facility] Co de Phone Number [facility] [address] * Magnesium (10/21/2017 6:42 AM EST) Magnesium 2.2 1.5 - 2.5 mg/dL 10/21/2017 7:41 AM EST [facility] Plasma specimen (specimen) 10/21/2017 6:42 AM EST 10/21/2017 7:12 AM EST us David Mendenhall MD LAB BLOOD ORDERABLES Final Resu lt Performing Organization Address [facility] Co de Phone Number [facility] [address] * (ABNORMAL) Hepatic Function Panel (10/21/2017 6:42 AM EST) Total Bilirubin 0.6 0.0 - 1.5 mg/dL 10/21/2017 7:41 AM EST [facility] Bilirubin, Direct 0.18 0.00 - 0.40 mg/dL 10/21/2017 7:41 AM EST [facility] AST 11(L) 13 - 39 U/L 10/21/2017 7:41 AM EST [facility] ALT 29 7 - 52 U/L 10/21/2017 7:41 AM EST [facility] Alkaline Phosphatase 61 36 - 125 U/L 10/21/2017 7:41 AM EST [facility] Total Protein 4.9(L) 6.4 - 8.9 g/dL 10/21/2017 7:41 AM EST [facility] Albumin 2.5(L) 3.5 - 5.7 g/dL 10/21/2017 7:41 AM [facility] Bilirubin, Indirect 0.42 0.00 - 1.10 mg/dL 10/21/2017 7:41 AM EST [facility] Plasma specimen (specimen) 10/21/2017 6:42 AM EST 10/21/2017 7:12 AM EST us David Mendenhall MD LAB BLOOD ORDERABLES Final Resu lt [facility] [address] [place] [address], [facility] [place] * (ABNORMAL) CBC (10/21/2017 6:42 AM EST) WBC 6.8 3.8 - 10.8 10E3/uL 10/21/2017 7:17 AM [facility] RBC 2.00(L) 4.20 - 5.80 10E6/uL 10/21/2017 7:17 AM [facility] Hemoglobin 7.0(L) 13.2 - 17.1 g/dL 10/21/2017 7:17 AM [facility] Hematocrit 20.4(L) 38.5 - 50.0 % 10/21/2017 7:17 AM [facility] MCV 101.6(H) 80.0 - 100.0 fL 10/21/2017 7:17 AM [facility] MCH 34.7(H) 27.0 - 33.0 pg 10/21/2017 7:17 AM [facility] MCHC 34.1 32.0 - 36.0 g/dL 10/21/2017 7:17 AM [facility] RDW 20.4(H) 11.0 - 15.0 % 10/21/2017 7:17 AM [facility] Platelets 137(L) 140 - 400 10E3/uL 10/21/2017 7:17 AM [facility] MPV 9.2 7.5 - 11.5 fL 10/21/2017 7:17 AM [facility] Whole blood specimen (specimen) 10/21/2017 6:42 AM EST 10/21/2017 7:12 AM EST us David Mendenhall MD LAB BLOOD ORDERABLES Final Resu lt Performing Organization Address City/[facility] Co de Phone Number [facility] [address] [facility] * Miscellaneous Reference Test (10/21/2017 6:42 AM EST) Performing Lab [facility] 10/24/2017 5:17 PM EDT [facility] RESULT See Scanned Report in EPIC Lab tab. 10/24/2017 5:17 PM EDT [facility] Test Name [id number] 10/24/2017 5:17 PM EDT [facility] Miscellaneous samples (specimen) 10/21/2017 6:42 AM EST 10/24/2017 5:17 PM EDT Narrative [facility] - 10/24/2017 5:17 PM EDT Tacrolimus by Vice President For Instruction Test number: [id number] CPT: 70506 ?? Requires 1ML of whole blood in EDTA (lavender top). Refrigerated us Shira Feng CNP LAB BLOOD ORDERABLES Yoselin l Result Performing Organization Address [facility] Co de Phone Number [facility] [address] [facility] * LAB (10/21/2017 12:00 AM EST) us Scanning [employer]ch[employer] NURSING INFORMATIONAL/COMMUNICAT ION ORDERABLES Final Result * (ABNORMAL) POC Glucose Monitoring Device (10/20/2017 10:00 PM EST) POC Glucose Monitoring Device 362(H) 70 - 100 mg/dL 10/20/2017 10:01 PM EST [facility] Blood specimen (specimen) 10/20/2017 10:00 PM EST 10/20/2017 10:01 PM EST us Tami Richardson MD POINT OF CARE TEST ORDERABLES F inal Result [facility] [address] [employer] [facility] [employer] [facility]. [address] * (ABNORMAL) POC Glucose Monitoring Device (10/20/2017 8:12 PM EST) POC Glucose Monitoring Device 265(H) 70 - 100 mg/dL 10/20/2017 8:13 PM EST [facility] Blood specimen (specimen) 10/20/2017 8:12 PM EST 10/20/2017 8:13 PM EST us Tami Richardson MD POINT OF CARE TEST ORDERABLES F inal Result Performing Organization Address [facility]/ZIP Co de Phone Number [facility] [address] [employer] [facility]. [address] * (ABNORMAL) POC Glucose Monitoring Device (10/20/2017 1:09 PM EST) Pathologist [facility] POC Glucose Monitoring Device 175(H) 70 - 100 mg/dL 10/20/2017 1:11 PM EST [facility] Blood specimen (specimen) 10/20/2017 1:09 PM EST 10/20/2017 1:11 PM EST Tami Richardson MD POINT OF CARE TEST ORDERABLES F inal Result Performing Organization Address [facility]/ZIP Co de Phone Number [facility] [address] [facility] * Respiratory Viral/Bacterial Panel (10/20/2017 12:52 PM EST) Pathologist [facility] [place] Influenza A Not Detected Not Detected 10/20/2017 6:43 PM EST [facility] Influenza A H1 Not Detected Not Detected 10/20/2017 6:43 PM EST [facility] Influenza A H3 Not Detected Not Detected 10/20/2017 6:43 PM EST [facility] Influenza B Not Detected Not Detected 10/20/2017 6:43 PM EST [facility] Resp. Syncycial Virus A Not Detected Not Detected 10/20/2017 6:43 PM EST [facility] Resp. Syncycial Virus B Not Detected Not Detected 10/20/2017 6:43 PM EST [facility] Adenovirus Not Detected Not Detected 10/20/2017 6:43 PM EST [facility] Human Metapneumovirus Not Detected Not Detected 10/20/2017 6:43 PM EST [facility] Parainfluenza 1 Not Detected Not Detected 10/20/2017 6:43 PM EST [facility] Parainfluenza 2 Not Detected Not Detected 10/20/2017 6:43 PM EST [facility] Parainfluenza 3 Not Detected Not Detected 10/20/2017 6:43 PM EST [facility] Parainfluenza 4 Not Detected Not Detected 10/20/2017 6:43 PM EST [facility] Human Rhinovirus Not Detected Not Detected 10/20/2017 6:43 PM EST [facility] Bordetella parapertussis/bron chiseptica Not Detected Not Detected 10/20/2017 6:43 PM EST [facility] Bordetella pertussis Not Detected Not Detected 10/20/2017 6:43 PM EST [facility] Bordetella holmesii Not Detected Not Detected 10/20/2017 6:43 PM EST [facility] Comment: The Respiratory Viral-Bacterial Panel is an FDA-approved nucleic acid amplification test that detects 13 different viral targets and 3 bacterial targets in nasopharyngeal specimens. ??Performance characteristics of the test on BAL fluid have been determined by [facility]. ??The laboratory is regulated under the Clinical Laboratory Improvement Act of 1988 (CLIA-88) as qualified to perform high- complexity testing. This test is used for clinical testing; it should not be regarded as investigational or for research. Negative results do not rule out the presence of viral, bacterial, or fungal infections. ??Infections with more than a single agent have been reported. ??For further information, call the micro laboratory. Nasopharyngeal swab (specimen) NASOPHARYNGEAL SWAB / Unknown 10/20/2017 12:52 PM EST 10/20/2017 3:28 PM EST Comment:CEMENT FINISHING SUPERVISOR Shira Feng EMERGENCY PLANNING AND RESPONSE MANAGER BODY FLUIDS AND STOOLS OR DERABLES Final Result [facility] [address] [place] [address], [facility] [place] * Staphylococcal Pneumonia Nasal Swab (10/20/2017 12:52 PM EST) Culture Result No Staphylococcus aureus Isolated [facility] Swab of internal nose (specimen) BOTH ANTERIOR NARES / Unknown 10/20/2017 12:52 PM EST 10/20/2017 3:27 PM EST Shira Feng EMERGENCY PLANNING AND RESPONSE MANAGER MICROBIOLOGY - GENERAL OR DERABLES Final Result [facility] [address] [place] [address], [facility] [place] * CT Chest WO contrast (10/20/2017 11:33 AM EST) Anatomical Region Laterality Modality Chest Computed Tomogra phy 10/20/2017 11:2 6 AM EST Impressions 10/20/2017 12:13 PM EST IMPRESSION: Multifocal dependent airspace opacity may represent atelectasis or pneumonia. Report Verified by: MARY VAN M.D. at 10/20/2017 12:13 PM EST Narrative 10/20/2017 12:13 PM EST Exam: CT CHEST WO CONTRAST dated 10/20/2017 11:26 AM EST CLINICAL HISTORY: Shortness of breath; COMPARISON: No similar prior exams. TECHNIQUE: Multidetector CT imaging was obtained through the chest in the supine position without intravenous contrast. The images were reconstructed with 5 and 1 mm collimation using a 44 cm field of view. FINDINGS: Lines & tubes: None. Lower neck: No focal lesions. Mediastinum & debbi:No mediastinal or hilar lymphadenopathy. Thoracic aorta: Normal caliber. Main Pulmonary artery: Normal caliber. Coronary artery calcifications:None Cardiac Structures: No CT abnormality. Pericardium: No pericardial effusion or pericardial thickening. Pleura: No pleural effusions. Esophagus: There is a small hiatal hernia. Airways: There are dependent secretions in the trachea. The central airways are otherwise patent. Lungs: There are dependent airspace opacities in bilateral lower lobes. There is patchy airspace opacity in the left upper lobe. No suspicious pulmonary nodules. Upper abdomen: There are changes of liver transplant in the upper abdomen. The spleen is enlarged in imaged portions. Chest wall & imaged bones: No suspicious osseous lesions. Procedure Note Mary Van MD - 10/20/2017 Exam: CT CHEST WO CONTRAST dated 10/20/2017 11:26 AM EST CLINICAL HISTORY: Shortness of breath; COMPARISON: No similar prior exams. TECHNIQUE: Multidetector CT imaging was obtained through the chest in thesupine position without intravenous contrast. The images werereconstructed with 5 and 1 mm collimation using a 44 cm field of view. FINDINGS: Lines & tubes: None. Lower neck: No focal lesions. Mediastinum & debbi:No mediastinal or hilar lymphadenopathy. Thoracic aorta: Normal caliber. Main Pulmonary artery: Normal caliber. Coronary artery calcifications:None Cardiac Structures: No CT abnormality. Pericardium: No pericardial effusion or pericardial thickening. Pleura: No pleural effusions. Esophagus: There is a small hiatal hernia. Airways: There are dependent secretions in the trachea. The centralairways are otherwise patent. Lungs: There are dependent airspace opacities in bilateral lower lobes.There is patchy airspace opacity in the left upper lobe. No suspiciouspulmonary nodules. Upper abdomen: There are changes of liver transplant in the upper abdomen.The spleen is enlarged in imaged portions. Chest wall & imaged bones: No suspicious osseous lesions. IMPRESSION: Multifocal dependent airspace opacity may represent atelectasis orpneumonia. Report Verified by: MARY VAN M.D. at 10/20/2017 12:13 PM EST Shira Feng [facility] CT ORDERABLES Final R esult * CT Abdomen and Pelvis WO IV contrast (10/20/2017 11:33 AM EST) Anatomical Region Laterality Modality Abdomen, Pelvis Computed Tomogra phy 10/20/2017 11:2 6 AM EST Impressions 10/20/2017 12:48 PM EST IMPRESSION: Postsurgical changes of liver transplant without loculated perigraft ??or intraabdominal fluid collections. Small volume of pelvic ascites and diffuse body wall edema compatible with anasarca. Report Verified by: Marcy Villagran at 10/20/2017 12:48 PM EST Narrative 10/20/2017 12:48 PM EST EXAM: CT ABDOMEN AND PELVIS WO IV CONTRAST CLINICAL INDICATION: Abdominal pain, unspecified; TECHNIQUE: CT of the abdomen and pelvis was performed without intravenous contrast. Axial images were obtained with coronal and sagittal reconstructions. CONTRAST: None FIELD OF VIEW: 44 cm COMPARISON: None available. FINDINGS: Chest findings are reported separately Liver: Postsurgical changes of orthotopic liver transplant. No focal lesions or perigraft collections. Biliary tree: Bile ducts are suboptimally assessed absence of contrast. The gallbladder is surgically absent. Spleen: Not enlarged. Pancreas: Unremarkable. Adrenal glands: Unremarkable. Kidneys/ureters: No stones. ??No hydronephrosis. The urinary bladder is decompressed but unremarkable. Gastrointestinal tract: Gastric, small bowel, colonic caliber and wall thickness are within normal limits. Lymphatics: No abdominal or pelvic lymph nodes are enlarged by size criteria. Vasculature: Large perisplenic collaterals and splenorenal shunt are present. Peritoneum: Small volume pelvic free fluid. Abdominal wall/soft tissues: Diffuse body wall edema. Small subincisional fluid in the left anterior abdomen. Pelvic Organs: Prostate and seminal vesicles are normal in contour. Osseous structures: No acute osseous abnormalities or suspicious osseous lesions. Bilateral pars defect of L5 with degenerative changes at the L5-S1 disc space. Procedure Note Marcy Villagran MD - 10/20/2017 EXAM: CT ABDOMEN AND PELVIS WO IV CONTRAST CLINICAL INDICATION: Abdominal pain, unspecified; TECHNIQUE: CT of the abdomen and pelvis was performed without intravenouscontrast. Axial images were obtained with coronal and sagittalreconstructions. CONTRAST: None FIELD OF VIEW: 44 cm COMPARISON: None available. FINDINGS: Chest findings are reported separately Liver: Postsurgical changes of orthotopic liver transplant. No focallesions or perigraft collections. Biliary tree: Bile ducts are suboptimally assessed absence of contrast.The gallbladder is surgically absent. Spleen: Not enlarged. Pancreas: Unremarkable. Adrenal glands: Unremarkable. Kidneys/ureters: No stones. No hydronephrosis. The urinary bladder isdecompressed but unremarkable. Gastrointestinal tract: Gastric, small bowel, colonic caliber and wallthickness are within normal limits. Lymphatics: No abdominal or pelvic lymph nodes are enlarged by sizecriteria. Vasculature: Large perisplenic collaterals and splenorenal shunt arepresent. Peritoneum: Small volume pelvic free fluid. Abdominal wall/soft tissues: Diffuse body wall edema. Small subincisionalfluid in the left anterior abdomen. Pelvic Organs: Prostate and seminal vesicles are normal in contour. Osseous structures: No acute osseous abnormalities or suspicious osseouslesions. Bilateral pars defect of L5 with degenerative changes at theL5-S1 disc space. IMPRESSION: Postsurgical changes of liver transplant without loculated perigraft orintraabdominal fluid collections. Small volume of pelvic ascites anddiffuse body wall edema compatible with anasarca. Report Verified by: Marcy Villagran at 10/20/2017 12:48 PM EST Shira Feng CNP IMG CT ORDERABLES Final R esult * Cryptococcus Antigen, Serum (10/20/2017 10:40 AM EST) Crypto Ag, Ser Negative Negative 10/20/2017 2:30 PM EST [facility] Crypto Ag Titer, Ser Not Applicable 10/20/2017 2:30 PM EST [facility] Serum specimen (specimen) 10/20/2017 10:40 AM EST 10/20/2017 11:33 AM EST Shira Feng [facility] BLOOD ORDERABLES Yoselin l Result Performing Organization Address City/[facility]/ZIP Co de Phone Number [facility] [address] * (ABNORMAL) POC Glucose Monitoring Device (10/20/2017 8:15 AM EST) POC Glucose Monitoring Device 126(H) 70 - 100 mg/dL 10/20/2017 8:19 AM EST [facility] Blood specimen (specimen) 10/20/2017 8:15 AM EST 10/20/2017 8:19 AM EST Tami Richardson MD POINT OF CARE TEST ORDERABLES F inal Result Performing Organization Address City/[facility]/ZIP Co de Phone Number [facility] [address] * Transfuse RBC (10/20/2017 7:47 AM EST) Shira Feng CNP NURSING TREATMENT ORDERAB LES - BLOOD ADMIN Final Result EXTERNAL * Transfuse RBC (10/20/2017 7:46 AM EST) us Tam Neil MD NURSING TREATMENT ORDERABL ES - BLOOD ADMIN Final Result EXTERNAL * TSH (Thyroid Stimulating Hormone) (10/20/2017 6:32 AM EST) TSH 1.76 0.45 - 4.12 uIU/mL 10/20/2017 10:29 AM EST [facility] Serum specimen (specimen) 10/20/2017 6:32 AM EST 10/20/2017 9:52 AM EST us Yasmani Morrell MD LAB BLOOD ORDERABLES Final Resul t Performing Organization Address City/[facility] Co de Phone Number [address] * T4, free (10/20/2017 6:32 AM EST) Free T4 1.03 0.61 - 1.76 ng/dL 10/20/2017 10:31 AM EST [facility] Serum specimen (specimen) 10/20/2017 6:32 AM EST 10/20/2017 9:52 AM EST us Yasmani Morrell MD LAB BLOOD ORDERABLES Final Resul t Performing Organization Address [facility] Co de Phone Number [address] * (ABNORMAL) T3, Total (10/20/2017 6:32 AM EST) T3, Total 44.5(L) 60.0 - 220.0 ng/dL 10/20/2017 10:36 AM EST [facility] Serum specimen (specimen) 10/20/2017 6:32 AM EST 10/20/2017 9:52 AM EST Narrative [facility] - 10/20/2017 10:36 AM EST ERICA DAVIS RN OK'D ADD ON us Yasmani Morrell MD LAB BLOOD ORDERABLES Final Resul t Performing Organization Address [facility] Co de Phone Number [facility] [address] * (ABNORMAL) Troponin I (10/20/2017 6:32 AM EST) Troponin I 0.06(H) 0.00 - 0.03 ng/mL 10/20/2017 8:15 AM EST [facility] Plasma specimen (specimen) 10/20/2017 6:32 AM EST 10/20/2017 7:09 AM EST us Yasmani Morrell MD LAB BLOOD ORDERABLES Final Resul t Performing Organization Address [facility] Co de Phone Number [facility] [address] * Tacrolimus level (10/20/2017 6:32 AM EST) Tacrolimus Lvl 12.6 5.0 - 20.0 ng/mL 10/20/2017 11:34 AM EST [facility] Comment: Detection limit: ??2 ng/mL. ??Performed via chemiluminescent microparticle immunoassay on the [employer] i1000. Whole blood specimen (specimen) 10/20/2017 6:32 AM EST 10/20/2017 7:09 AM EST us David Mendehnall MD LAB BLOOD ORDERABLES Final Resu lt Performing Organization Address [facility] Co de Phone Number [facility] [address] * (ABNORMAL) Renal Function Panel w/EGFR (10/20/2017 6:32 AM EST) Sodium 138 133 - 146 mmol/L 10/20/2017 7:48 AM EST [facility] Potassium 4.6 3.5 - 5.3 mmol/L 10/20/2017 7:48 AM EST [facility] Chloride 101 98 - 110 mmol/L 10/20/2017 7:48 AM EST [facility] CO2 29 21 - 33 mmol/L 10/20/2017 7:48 AM EST [facility] Anion Gap 8 3 - 16 mmol/L 10/20/2017 7:48 AM [facility] BUN 62(H) 7 - 25 mg/dL 10/20/2017 7:48 AM [facility] Creatinine 2.24(H) 0.60 - 1.30 mg/dL 10/20/2017 7:48 AM [facility] Glucose 129(H) 70 - 100 mg/dL 10/20/2017 7:48 AM [facility] Calcium 8.4(L) 8.6 - 10.3 mg/dL 10/20/2017 7:48 AM [facility] Phosphorus 5.3(H) 2.1 - 4.7 mg/dL 10/20/2017 7:48 AM [facility] Albumin 2.5(L) 3.5 - 5.7 g/dL 10/20/2017 7:48 AM [facility] Osmolality, Calculated 305 278 - 305 mOsm/kg 10/20/2017 7:48 AM [facility] eGFR AA CKD-EPI 40 See note. 8 7:48 AM [facility] eGFR NONAA CKD-EPI 35 See note. 10/20/2017 7:48 AM [facility] Plasma specimen (specimen) 10/20/2017 6:32 AM EST 10/20/2017 7:09 AM EST [facility] - 10/20/2017 7:48 AM EST As of 10/13/2015 the estimated GFR is [...] equation to estimate glomerular filtration rate. ??Jenn[employer] Med. 2009:150(9):604-12 us David Mendenhall MD LAB BLOOD ORDERABLES Final Resu lt [facility] [id number] [place] [address] * Magnesium (10/20/2017 6:32 AM EST) Magnesium 1.9 1.5 - 2.5 mg/dL 10/20/2017 7:48 AM EST [facility] Plasma specimen (specimen) 10/20/2017 6:32 AM EST 10/20/2017 7:09 AM EST us David Mendenhall MD LAB BLOOD ORDERABLES Final Resu lt Performing Organization Address [facility] Co de Phone Number [facility] [address] * (ABNORMAL) Hepatic Function Panel (10/20/2017 6:32 AM EST) Total Bilirubin 0.8 0.0 - 1.5 mg/dL 10/20/2017 7:48 AM EST [facility] Bilirubin, Direct 0.31 0.00 - 0.40 mg/dL 10/20/2017 7:48 AM EST [facility] AST 14 13 - 39 U/L 10/20/2017 7:48 AM EST [facility] ALT 35 7 - 52 U/L 10/20/2017 7:48 AM EST [facility] Alkaline Phosphatase 61 36 - 125 U/L 10/20/2017 7:48 AM EST [facility] Total Protein 4.9(L) 6.4 - 8.9 g/dL 10/20/2017 7:48 AM EST [facility] Albumin 2.5(L) 3.5 - 5.7 g/dL 10/20/2017 7:48 AM EST [facility] Bilirubin, Indirect 0.49 0.00 - 1.10 mg/dL 10/20/2017 7:48 AM EST [facility] Plasma specimen (specimen) 10/20/2017 6:32 AM EST 10/20/2017 7:09 AM EST us David Mendenhall MD LAB BLOOD ORDERABLES Final Resu lt Performing Organization Address [facility]/ZIP Co de Phone Number [facility] [address] * (ABNORMAL) CBC (10/20/2017 6:32 AM EST) WBC 9.2 3.8 - 10.8 10E3/uL 10/20/2017 7:30 AM EST [facility] RBC 2.10(L) 4.20 - 5.80 10E6/uL 10/20/2017 7:30 AM EST [facility] Hemoglobin 7.2(L) 13.2 - 17.1 g/dL 10/20/2017 7:30 AM EST [facility] Hematocrit 21.4(L) 38.5 - 50.0 % 10/20/2017 7:30 AM [facility] MCV 101.9(H) 80.0 - 100.0 fL 10/20/2017 7:30 AM EST [facility] MCH 34.3(H) 27.0 - 33.0 pg 10/20/2017 7:30 AM [facility] MCHC 33.7 32.0 - 36.0 g/dL 10/20/2017 7:30 AM EST [facility] RDW 20.4(H) 11.0 - 15.0 % 10/20/2017 7:30 AM EST [facility] Platelets 171 140 - 400 10E3/uL 10/20/2017 7:30 AM [facility] MPV 9.0 7.5 - 11.5 fL 10/20/2017 7:30 AM [facility] Whole blood specimen (specimen) 10/20/2017 6:32 AM EST 10/20/2017 7:09 AM EST us David Mendenhall MD LAB BLOOD ORDERABLES Final Resu lt Performing Organization Address City/State/[facility] Co de Phone Number [facility] [address] * (ABNORMAL) Troponin I (10/19/2017 11:57 PM EST) Troponin I 0.09(H) 0.00 - 0.03 ng/mL 10/20/2017 12:33 AM EST [facility] Comment: RESULTS <0.04: This result is below the 99th percentile for a healthy adult population. Interpret result in light of the clinical presentation. RESULTS 0.04-0.20: This result is a borderline value that may reflect myocardial injury. Interpret result in light of the clinical presentation. RESULTS >0.20: This result is an abnormal value with a high likelihood of myocardial injury. Interpret result in light of the clinical presentation. Plasma specimen (specimen) 10/19/2017 11:57 PM EST 10/20/2017 12:06 AM EST Priti Macedo MD LAB BLOOD ORDERABLES Final Result [facility] [address] * ECG 12 lead (MUSE) (10/19/2017 10:55 PM EST) 10/19/2017 10:5 5 PM EST Narrative [facility] - 10/20/2017 12:20 PM EST Ventricular Rate: ??87 ??BPM Atrial Rate: ??87 ??BPM P-R Interval: ??168 ??ms QRS Duration: ??96 ??ms QT: ??372 ??ms QTc: ??447 ??ms P [place]: ??70 ??degrees R [place]: ??89 ??degrees T [place]: ??60 ??degrees Diagnosis Line: ??NORMAL SINUS RHYTHM ^ NONSPECIFIC ST SEGMENT CHANGE ^ ABNORMAL ECG ^ COMPARED TO THE ECG OF 17-OCT-2017 23:37, ^ THERE IS NO SIGNIFICANT CHANGE ^ Confirmed by Carlo PEREZ, PHYLLIS ([id number]) on 10/20/2017 12:20:00 PM us Priti Macedo MD ECG ORDERABLES Final Result Performing Organization Address City/[facility]/ZIP Co de Phone Number [facility] [address] [place] [address] * (ABNORMAL) POC Glucose Monitoring Device (10/19/2017 10:01 PM EST) POC Glucose Monitoring Device 237(H) 70 - 100 mg/dL 10/19/2017 11:21 PM EST [facility] Blood specimen (specimen) 10/19/2017 10:01 PM EST 10/19/2017 11:21 PM EST Tami Richardson MD POINT OF CARE TEST ORDERABLES F inal Result Performing Organization Address [facility]/ZIP Co de Phone Number [facility] [address] [employer] [facility]. [address] * (ABNORMAL) POC Glucose Monitoring Device (10/19/2017 7:27 PM EST) POC Glucose Monitoring Device 150(H) 70 - 100 mg/dL 10/19/2017 7:41 PM EST [facility] Blood specimen (specimen) 10/19/2017 7:27 PM EST 10/19/2017 7:40 PM EST Tami Richardson MD POINT OF CARE TEST ORDERABLES F inal Result Performing Organization Address [facility] Co de Phone Number [facility] [address] * POC Glucose Monitoring Device (10/19/2017 1:56 PM EST) POC Glucose Monitoring Device 86 70 - 100 mg/dL 10/19/2017 1:57 PM EST [facility] Blood specimen (specimen) 10/19/2017 1:56 PM EST 10/19/2017 1:57 PM EST Result [facility] Tami Richardson MD POINT OF CARE TEST ORDERABLES F inal Result Performing Organization Address [facility] Co de Phone Number [facility] [address] [employer] [facility]. [address] * Blood culture-Peripheral (10/19/2017 1:10 PM EST) Culture Result No Growth After 5 Days [facility] Blood specimen (specimen) BLOOD SPECIMEN / Unknown 10/19/2017 1:10 PM EST 10/19/2017 1:54 PM EST Tam Neil MD MICROBIOLOGY - GENERAL ORD ERABLES Final Result Performing Organization Address City/[facility]/ZIP Co de Phone Number [facility] [address] * Blood culture-Peripheral (10/19/2017 1:05 PM EST) Culture Result No Growth After 5 Days [facility] Blood specimen (specimen) BLOOD SPECIMEN / Unknown 10/19/2017 1:05 PM EST 10/19/2017 1:53 PM EST us Tam Neil MD MICROBIOLOGY - GENERAL ORD ERABLES Final Result [facility] [address] [employer] [facility]. [address] * (ABNORMAL) Urinalysis w/Rfl Microscop, Rfl Culture (10/19/2017 12:49 PM EST) Color, UA Yellow Yellow,Straw 10/19/2017 7:45 PM EST [facility] Clarity, UA Clear Clear 10/19/2017 7:45 PM EST [facility] Specific [place], UA 1.015 1.005 - 1.035 10/19/2017 7:45 PM EST [facility] pH, UA 5.0 5.0 - 8.0 10/19/2017 7:45 PM EST [facility] Protein, UA Negative Negative mg/dL 10/19/2017 7:45 PM EST [facility] Glucose, UA Negative Negative mg/dL 10/19/2017 7:45 PM EST [facility] Ketones, UA Negative Negative mg/dL 10/19/2017 7:45 PM EST [facility] Bilirubin, UA Negative Negative 10/19/2017 7:45 PM EST [facility] Blood, UA Negative Negative 10/19/2017 7:45 PM EST [facility] Nitrite, UA Negative Negative 10/19/2017 7:45 PM EST [facility] Urobilinogen, UA 2.0(H) 0.2 - 1.9 mg/dL 10/19/2017 7:45 PM EST [facility] Leukocyte Esterase, UA Negative Negative 10/19/2017 7:45 PM EST [facility] Urine specimen (specimen) 10/19/2017 12:49 PM EST 10/19/2017 7:07 PM EST Narrative [facility] - 10/19/2017 7:45 PM EST Microscopic testing not performed when the dipstick is negative for Blood, Leukocyte, Protein, and Nitrite. Urine Culture will not be performed if WBC <= 5, Nitrite negative, Leukocyte negative, and Bacteria less than Few. Tam Neil MD URINE ORDERABLES Final Res ult [facility] [address] [place] [address], [facility] [place] * X-ray Portable Chest (10/19/2017 11:48 AM EST) Anatomical Region Laterality Modality Chest Radiographic Sobia ging 10/19/2017 11:3 1 AM EST Impressions 10/19/2017 12:50 PM EST IMPRESSION: Progression of bibasilar predominant parenchymal opacities, which may be related to pneumonia, to include aspiration. Report Verified by: Landen Taylor M.D. at 10/19/2017 12:50 PM EST Narrative 10/19/2017 12:50 PM EST Exam: XR PORTABLE CHEST Date: 10/19/2017 11:31 AM EST CLINICAL HISTORY: Shortness of breath; TECHNIQUE: 1 view of the chest. COMPARISON: 10/16/2017 FINDINGS: Medical Devices: None. Heart and Mediastinum: Unchanged. Lungs and Pleura: Low lung volumes with mild progression of bibasilar predominant parenchymal opacities. Bones: No acute osseous abnormalities. Procedure Note Landen Taylor MD - 10/19/2017 Exam: XR PORTABLE CHEST Date: 10/19/2017 11:31 AM EST CLINICAL HISTORY: Shortness of breath; TECHNIQUE: 1 view of the chest. COMPARISON: 10/16/2017 FINDINGS: Medical Devices: None. Heart and Mediastinum: Unchanged. Lungs and Pleura: Low lung volumes with mild progression of bibasilarpredominant parenchymal opacities. Bones: No acute osseous abnormalities. IMPRESSION: Progression of bibasilar predominant parenchymal opacities, which may berelated to pneumonia, to include aspiration. Report Verified by: Landen Taylor M.D. at 10/19/2017 12:50 PM EST Shira Feng CNP IM DIAGNOSTIC IMAGING OR DERABLES Final Result * Antibody identification (10/19/2017 10:48 AM EST) Antibody Id. #1 Anti-C 10/19/2017 10:48 AM EST [facility] Antibody Id. #2 Anti-D 10/19/2017 10:48 AM EST [facility] Blood specimen (specimen) 10/19/2017 10:48 AM EST 10/19/2017 10:48 AM EST us Tam Neil MD BLOOD BANK TEST ORDERABLES Final Result [address] * ELIUD Anti-IgG (10/19/2017 10:47 AM EST) ELIUD IgG Negative 10/19/2017 10:47 AM EST [facility] Blood specimen (specimen) 10/19/2017 10:47 AM EST 10/19/2017 10:47 AM EST Tam Neil MD BLOOD BANK TEST ORDERABLES Final Result [address] * Prepare RBC, leukoreduced, 1 Units (10/19/2017 8:59 AM EST) Product Code T2795O17 [facility] Unit Number [id number] [facility] Dispense Status Presumed Transfused_PT [facility] Blood Expiration Date [facility] Coding System [id number] [facility] Product Code D5383K18 [facility] Unit Number [id number] [facility] Dispense Status Presumed Transfused_PT [facility] Blood Expiration Date HCLL Coding System [id number] [facility]LL Specimen from blood bag from blood product (specimen) Tam Neil MD BLOOD BANK PRODUCT ORDERAB LES Final Result [facility] * POC Glucose Monitoring Device (10/19/2017 8:44 AM EST) POC Glucose Monitoring Device 91 70 - 100 mg/dL 10/19/2017 8:46 AM EST [facility] Blood specimen (specimen) 10/19/2017 8:44 AM EST 10/19/2017 8:45 AM EST Tami Richardson MD POINT OF CARE TEST ORDERABLES F inal Result Performing Organization Address [facility]/ZIP Co de Phone Number [facility] [address] * Antibody Screen (10/19/2017 8:44 AM EST) Antibody Screen Positive 10/19/2017 10:04 AM EST [facility] Blood specimen (specimen) 10/19/2017 8:44 AM EST 10/19/2017 8:53 AM EST Narrative [facility] - 10/19/2017 10:07 AM EST Testing performed by [facility] Transfusion Service Tam Neil MD BLOOD BANK TEST ORDERABLES Final Result Performing Organization Address [facility] Co de Phone Number [facility] [address] * ABO/Rh (10/19/2017 8:44 AM EST) ABO Grouping O 10/19/2017 10:04 AM EST [facility] Rh Type Negative 10/19/2017 10:04 AM EST [facility] Blood specimen (specimen) 10/19/2017 8:44 AM EST 10/19/2017 8:53 AM EST Tam Neil MD BLOOD BANK TEST ORDERABLES Final Result Performing Organization Address City/[facility]/ZIP Co de Phone Number [facility] [address] * Tacrolimus level (10/19/2017 6:04 AM EST) Tacrolimus Lvl 9.1 5.0 - 20.0 ng/mL 10/19/2017 10:09 AM EST [facility] Comment: Detection limit: ??2 ng/mL. ??Performed via chemiluminescent microparticle immunoassay on the [employer] i1000. Whole blood specimen (specimen) 10/19/2017 6:04 AM EST 10/19/2017 6:08 AM EST us David Mendenhall MD LAB BLOOD ORDERABLES Final Resu lt [facility] [address] [place] [address], [facility] [place] * (ABNORMAL) Renal Function Panel w/EGFR (10/19/2017 6:04 AM EST) Sodium 139 133 - 146 mmol/L 10/19/2017 6:38 AM EST [facility] Potassium 3.6 3.5 - 5.3 mmol/L 10/19/2017 6:38 AM [facility] Chloride 102 98 - 110 mmol/L 10/19/2017 6:38 AM [facility] CO2 30 21 - 33 mmol/L 10/19/2017 6:38 AM [facility] Anion Gap 7 3 - 16 mmol/L 10/19/2017 6:38 AM [facility] BUN 54(H) 7 - 25 mg/dL 10/19/2017 6:38 AM [facility] Creatinine 1.77(H) 0.60 - 1.30 mg/dL 10/19/2017 6:38 AM [facility] Glucose 106(H) 70 - 100 mg/dL 10/19/2017 6:38 AM [facility] Calcium 8.6 8.6 - 10.3 mg/dL 10/19/2017 6:38 AM [facility] Phosphorus 5.0(H) 2.1 - 4.7 mg/dL 10/19/2017 6:38 AM [facility] Albumin 2.6(L) 3.5 - 5.7 g/dL 10/19/2017 6:38 AM [facility] Osmolality, Calculated 303 278 - 305 mOsm/kg 10/19/2017 6:38 AM EST [facility] eGFR AA CKD-EPI 53 See note. 8 6:38 AM EST [facility] eGFR NONAA CKD-EPI 46 See note. 10/19/2017 6:38 AM EST [facility] Plasma specimen (specimen) 10/19/2017 6:04 AM EST 10/19/2017 6:08 AM EST Narrative [facility] - 10/19/2017 6:38 AM EST As of 10/13/2015 the estimated GFR is [...] equation to estimate glomerular filtration rate. ??Jennifer [employer] Flow Manager Med. 2009:150(9):604-12 us David Mendenhall MD LAB BLOOD ORDERABLES Final Resu lt Performing Organization Address City/[facility]/ZIP Co de Phone Number [facility] [address] * Magnesium (10/19/2017 6:04 AM EST) Magnesium 2.1 1.5 - 2.5 mg/dL 10/19/2017 6:38 AM EST [facility] Plasma specimen (specimen) 10/19/2017 6:04 AM EST 10/19/2017 6:08 AM EST us David Mendenhall MD LAB BLOOD ORDERABLES Final Resu lt Performing Organization Address [facility] Co de Phone Number [facility] [address] * (ABNORMAL) Hepatic Function Panel (10/19/2017 6:04 AM EST) Total Bilirubin 0.7 0.0 - 1.5 mg/dL 10/19/2017 6:38 AM EST [facility] Bilirubin, Direct 0.36 0.00 - 0.40 mg/dL 10/19/2017 6:38 AM EST [facility] AST 15 13 - 39 U/L 10/19/2017 6:38 AM EST [facility] ALT 46 7 - 52 U/L 10/19/2017 6:38 AM EST [facility] Alkaline Phosphatase 61 36 - 125 U/L 10/19/2017 6:38 AM EST [facility] Total Protein 4.8(L) 6.4 - 8.9 g/dL 10/19/2017 6:38 AM EST [facility] Albumin 2.6(L) 3.5 - 5.7 g/dL 10/19/2017 6:38 AM EST [facility] Bilirubin, Indirect 0.34 0.00 - 1.10 mg/dL 10/19/2017 6:38 AM EST [facility] Plasma specimen (specimen) 10/19/2017 6:04 AM EST 10/19/2017 6:08 AM EST us David Mendenhall MD LAB BLOOD ORDERABLES Final Resu lt [facility] [address] [place] [address], [facility] [place] * (ABNORMAL) CBC (10/19/2017 6:04 AM EST) WBC 5.9 3.8 - 10.8 10E3/uL 10/19/2017 6:21 AM [facility] RBC 1.80(L) 4.20 - 5.80 10E6/uL 10/19/2017 6:21 AM [facility] Hemoglobin 6.4(L) 13.2 - 17.1 g/dL 10/19/2017 6:21 AM [facility] Hematocrit 18.7(L) 38.5 - 50.0 % 10/19/2017 6:21 AM EST [facility] MCV 103.9(H) 80.0 - 100.0 fL 10/19/2017 6:21 AM [facility] MCH 35.4(H) 27.0 - 33.0 pg 10/19/2017 6:21 AM [facility] MCHC 34.1 32.0 - 36.0 g/dL 10/19/2017 6:21 AM EST [facility] RDW 19.9(H) 11.0 - 15.0 % 10/19/2017 6:21 AM EST [facility] Platelets 182 140 - 400 10E3/uL 10/19/2017 6:21 AM EST [facility] MPV 8.8 7.5 - 11.5 fL 10/19/2017 6:21 AM EST [facility] Whole blood specimen (specimen) 10/19/2017 6:04 AM EST 10/19/2017 6:08 AM EST us David Mendenhall MD LAB BLOOD ORDERABLES Final Resu lt Performing Organization Address City/[facility]/ZIP Co de Phone Number [facility] [address] [facility] * EKG REPORT - SCAN (10/19/2017 12:00 AM EST) us Scanning Uch[employer] SCAN DOCS - NO RESULTS Final Res ult * (ABNORMAL) POC Glucose Monitoring Device (10/18/2017 10:47 PM EST) POC Glucose Monitoring Device 325(H) 70 - 100 mg/dL 10/18/2017 10:49 PM EST [facility] Blood specimen (specimen) 10/18/2017 10:47 PM EST 10/18/2017 10:49 PM EST us Tami Richardson MD POINT OF CARE TEST ORDERABLES F inal Result Performing Organization Address City/[facility]/ZIP Co de Phone Number [facility] [address] [facility] * (ABNORMAL) POC Glucose Monitoring Device (10/18/2017 6:48 PM EST) POC Glucose Monitoring Device 265(H) 70 - 100 mg/dL 10/18/2017 6:51 PM EST [facility] Blood specimen (specimen) 10/18/2017 6:48 PM EST 10/18/2017 6:51 PM EST Tami Richardson MD POINT OF CARE TEST ORDERABLES F inal Result Performing Organization Address [facility]/ZIP Co de Phone Number [facility] [address] [facility] * EKG REPORT - SCAN (10/18/2017 4:59 PM EST) us Scanning Uchhim SCAN DOCS - NO RESULTS Final Res ult * (ABNORMAL) POC Glucose Monitoring Device (10/18/2017 1:24 PM EST) POC Glucose Monitoring Device 211(H) 70 - 100 mg/dL 10/18/2017 1:27 PM EST [facility] Blood specimen (specimen) 10/18/2017 1:24 PM EST 10/18/2017 1:27 PM EST Tami Richardson MD POINT OF CARE TEST ORDERABLES F inal Result Performing Organization Address [facility] Co de Phone Number [facility] [address] [facility] * (ABNORMAL) POC Glucose Monitoring Device (10/18/2017 8:58 AM EST) POC Glucose Monitoring Device 114(H) 70 - 100 mg/dL 10/18/2017 8:59 AM EST [facility] Blood specimen (specimen) 10/18/2017 8:58 AM EST 10/18/2017 8:59 AM EST Tami Richardson MD POINT OF CARE TEST ORDERABLES F inal Result Performing Organization Address City/[facility] Co de Phone Number [facility] [address] [facility] * Tacrolimus level (10/18/2017 7:32 AM EST) Tacrolimus Lvl 7.1 5.0 - 20.0 ng/mL 10/18/2017 10:59 AM EST [facility] Comment: Detection limit: ??2 ng/mL. ??Performed via chemiluminescent microparticle immunoassay on the [employer] i1000. Whole blood specimen (specimen) 10/18/2017 7:32 AM EST 10/18/2017 8:01 AM EST us David Mendenhall MD LAB BLOOD ORDERABLES Final Resu lt [facility] [address] * (ABNORMAL) Renal Function Panel w/EGFR (10/18/2017 7:32 AM EST) Sodium 140 133 - 146 mmol/L 10/18/2017 8:33 AM [facility] Potassium 3.7 3.5 - 5.3 mmol/L 10/18/2017 8:33 AM [facility] Chloride 103 98 - 110 mmol/L 10/18/2017 8:33 AM [facility] CO2 32 21 - 33 mmol/L 10/18/2017 8:33 AM [facility] Anion Gap 5 3 - 16 mmol/L 10/18/2017 8:33 AM [facility] BUN 50(H) 7 - 25 mg/dL 10/18/2017 8:33 AM [facility] Creatinine 1.56(H) 0.60 - 1.30 mg/dL 10/18/2017 8:33 AM [facility] Glucose 110(H) 70 - 100 mg/dL 10/18/2017 8:33 AM [facility] Calcium 8.6 8.6 - 10.3 mg/dL 10/18/2017 8:33 AM [facility] Phosphorus 4.8(H) 2.1 - 4.7 mg/dL 10/18/2017 8:33 AM [facility] Albumin 2.6(L) 3.5 - 5.7 g/dL 10/18/2017 8:33 AM [facility] Osmolality, Calculated 304 278 - 305 mOsm/kg 10/18/2017 8:33 AM [facility] eGFR AA CKD-EPI 62 See note. 8 8:33 AM EST [facility] eGFR NONAA CKD-EPI 54 See note. 10/18/2017 8:33 AM EST [facility] Plasma specimen (specimen) 10/18/2017 7:32 AM EST 10/18/2017 8:01 AM EST Narrative [facility] - 10/18/2017 8:33 AM EST As of 10/13/2015 the estimated GFR is [...] equation to estimate glomerular filtration rate. ??J[employer] Med. 2009:150(9):604-12 us David Mendenhall MD LAB BLOOD ORDERABLES Final Resu lt Performing Organization Address [facility] Co de Phone Number [facility] [address] [facility] * Magnesium (10/18/2017 7:32 AM EST) Magnesium 2.0 1.5 - 2.5 mg/dL 10/18/2017 8:33 AM EST [facility] Plasma specimen (specimen) 10/18/2017 7:32 AM EST 10/18/2017 8:01 AM EST us David Mendenhall MD LAB BLOOD ORDERABLES Final Resu lt Performing Organization Address [facility] Co de Phone Number [facility] [address] * (ABNORMAL) Hepatic Function Panel (10/18/2017 7:32 AM EST) Total Bilirubin 0.8 0.0 - 1.5 mg/dL 10/18/2017 8:33 AM EST [facility] Bilirubin, Direct 0.28 0.00 - 0.40 mg/dL 10/18/2017 8:33 AM EST [facility] AST 20 13 - 39 U/L 10/18/2017 8:33 AM EST [facility] ALT 59(H) 7 - 52 U/L 10/18/2017 8:33 AM EST [facility] Alkaline Phosphatase 59 36 - 125 U/L 10/18/2017 8:33 AM EST [facility] Total Protein 4.9(L) 6.4 - 8.9 g/dL 10/18/2017 8:33 AM EST [facility] Albumin 2.6(L) 3.5 - 5.7 g/dL 10/18/2017 8:33 AM EST [facility] Bilirubin, Indirect 0.52 0.00 - 1.10 mg/dL 10/18/2017 8:33 AM EST [facility] Plasma specimen (specimen) 10/18/2017 7:32 AM EST 10/18/2017 8:01 AM EST us David Mendenhall MD LAB BLOOD ORDERABLES Final Resu lt [facility] [address] * (ABNORMAL) CBC (10/18/2017 7:32 AM EST) WBC 7.5 3.8 - 10.8 10E3/uL 10/18/2017 9:05 AM [facility] RBC 2.01(L) 4.20 - 5.80 10E6/uL 10/18/2017 9:05 AM [facility] Hemoglobin 7.2(L) 13.2 - 17.1 g/dL 10/18/2017 9:05 AM [facility] Hematocrit 20.7(L) 38.5 - 50.0 % 10/18/2017 9:05 AM [facility] MCV 103.0(H) 80.0 - 100.0 fL 10/18/2017 9:05 AM [facility] MCH 35.7(H) 27.0 - 33.0 pg 10/18/2017 9:05 AM [facility] MCHC 34.7 32.0 - 36.0 g/dL 10/18/2017 9:05 AM [facility] RDW 20.0(H) 11.0 - 15.0 % 10/18/2017 9:05 AM [facility] Platelets 189 140 - 400 10E3/uL 10/18/2017 9:05 AM EST [facility] Comment:Specimen checked for clots. None detected. Platelet Estimate Adequate 10/18/2017 9:05 AM EST [facility] MPV 9.6 7.5 - 11.5 fL 10/18/2017 9:05 AM EST [facility] Whole blood specimen (specimen) 10/18/2017 7:32 AM EST 10/18/2017 8:01 AM EST Narrative [facility] - 10/18/2017 9:05 AM EST Peripheral blood smear was scanned per review criteria approved by the laboratory medical imaging technician. us David Mendenhall MD LAB BLOOD ORDERABLES Final Resu lt Performing Organization Address City/[facility]/ZIP Co de Phone Number [facility] [address] * Troponin I (10/17/2017 11:48 PM EST) Troponin I <0.04 0.00 - 0.03 ng/mL 10/18/2017 12:21 AM EST [facility] Plasma specimen (specimen) 10/17/2017 11:48 PM EST 10/17/2017 11:51 PM EST us Priti Macedo MD LAB BLOOD ORDERABLES Final Result Performing Organization Address [facility] Co de Phone Number [facility] [address] * ECG 12 lead (MUSE) (10/17/2017 11:37 PM EST) 10/17/2017 11:3 7 PM EST Narrative [facility] - 10/18/2017 3:06 PM EST Ventricular Rate: ??91 ??BPM Atrial Rate: ??91 ??BPM P-R Interval: ??162 ??ms QRS Duration: ??100 ??ms QT: ??380 ??ms QTc: ??467 ??ms P [place]: ??62 ??degrees R [place]: ??57 ??degrees T [place]: ??19 ??degrees Diagnosis Line: ??NORMAL SINUS RHYTHM ^ POSSIBLE INFEROPOSTERIOR INFARCT (CITED ON OR BEFORE 10-OCT-2017) ^ ABNORMAL ECG ^ COMPARED TO THE ECG OF 10-OCT-2017 03:11, ^ R WAVE GREATER THAN S WAVE IN LEAD V1 ^ Confirmed by MARK ??AGUILA PEREZ ([id number]) on 10/18/2017 3:06:27 PM us Priti Macedo MD ECG ORDERABLES Final Result [facility] [address] [place] [address] * (ABNORMAL) POC Glucose Monitoring Device (10/17/2017 9:42 PM EST) POC Glucose Monitoring Device 307(H) 70 - 100 mg/dL 10/17/2017 9:43 PM EST [facility] Blood specimen (specimen) 10/17/2017 9:42 PM EST 10/17/2017 9:43 PM EST Tami Richardson MD POINT OF CARE TEST ORDERABLES F inal Result Performing Organization Address [facility] Co de Phone Number [facility] [address] * (ABNORMAL) POC Glucose Monitoring Device (10/17/2017 6:22 PM EST) POC Glucose Monitoring Device 282(H) 70 - 100 mg/dL 10/17/2017 6:23 PM EST [facility] Blood specimen (specimen) 10/17/2017 6:22 PM EST 10/17/2017 6:23 PM EST Tami Richardson MD POINT OF CARE TEST ORDERABLES F inal Result Performing Organization Address [facility] Co de Phone Number [facility] [address] * (ABNORMAL) POC Glucose Monitoring Device (10/17/2017 4:21 PM EST) POC Glucose Monitoring Device 260(H) 70 - 100 mg/dL 10/17/2017 4:22 PM EST [facility] Blood specimen (specimen) 10/17/2017 4:21 PM EST 10/17/2017 4:22 PM EST Tami Richardson MD POINT OF CARE TEST ORDERABLES F inal Result Performing Organization Address City/[facility] Co de Phone Number [facility] [address] [facility] * (ABNORMAL) POC Glucose Monitoring Device (10/17/2017 1:14 PM EST) POC Glucose Monitoring Device 178(H) 70 - 100 mg/dL 10/17/2017 1:16 PM EST [facility] Blood specimen (specimen) 10/17/2017 1:14 PM EST 10/17/2017 1:16 PM EST Tami Richardson MD POINT OF CARE TEST ORDERABLES F inal Result Performing Organization Address [facility] Co de Phone Number [facility] [address] [facility] * (ABNORMAL) POC Glucose Monitoring Device (10/17/2017 8:27 AM EST) POC Glucose Monitoring Device 104(H) 70 - 100 mg/dL 10/17/2017 8:29 AM EST [facility] Blood specimen (specimen) 10/17/2017 8:27 AM EST 10/17/2017 8:29 AM EST Tami Richardson MD POINT OF CARE TEST ORDERABLES F inal Result Performing Organization Address City/[facility] Co de Phone Number [facility] [address] [facility] * Tacrolimus level (10/17/2017 6:47 AM EST) Tacrolimus Lvl 5.6 5.0 - 20.0 ng/mL 10/17/2017 11:51 AM EST [facility] Comment: Detection limit: ??2 ng/mL. ??Performed via chemiluminescent microparticle immunoassay on the [employer] i1000. Whole blood specimen (specimen) 10/17/2017 6:47 AM EST 10/17/2017 6:54 AM EST us David Mendenhall MD LAB BLOOD ORDERABLES Final Resu lt [facility] [address] * (ABNORMAL) Renal Function Panel w/EGFR (10/17/2017 6:47 AM EST) Sodium 141 133 - 146 mmol/L 10/17/2017 7:30 AM [facility] Potassium 3.6 3.5 - 5.3 mmol/L 10/17/2017 7:30 AM [facility] Chloride 105 98 - 110 mmol/L 10/17/2017 7:30 AM [facility] CO2 30 21 - 33 mmol/L 10/17/2017 7:30 AM [facility] Anion Gap 6 3 - 16 mmol/L 10/17/2017 7:30 AM [facility] BUN 47(H) 7 - 25 mg/dL 10/17/2017 7:30 AM [facility] Creatinine 1.43(H) 0.60 - 1.30 mg/dL 10/17/2017 7:30 AM [facility] Glucose 103(H) 70 - 100 mg/dL 10/17/2017 7:30 AM [facility] Calcium 8.3(L) 8.6 - 10.3 mg/dL 10/17/2017 7:30 AM [facility] Phosphorus 3.3 2.1 - 4.7 mg/dL 10/17/2017 7:30 AM [facility] Albumin 2.5(L) 3.5 - 5.7 g/dL 10/17/2017 7:30 AM [facility] Osmolality, Calculated 305 278 - 305 mOsm/kg 10/17/2017 7:30 AM [facility] eGFR AA CKD-EPI 69 See note. 8 7:30 AM EST [facility] eGFR NONAA CKD-EPI 60 See note. 10/17/2017 7:30 AM EST [facility] Plasma specimen (specimen) 10/17/2017 6:47 AM EST 10/17/2017 6:54 AM EST Narrative [facility] - 10/17/2017 7:30 AM EST As of 10/13/2015 the estimated GFR is [...] equation to estimate glomerular filtration rate. ??[employer] Med. 2009:150(9):604-12 David Mendenhall MD LAB BLOOD ORDERABLES Final Resu lt Performing Organization Address [facility] de Phone Number [facility] [address] [facility] * Magnesium (10/17/2017 6:47 AM EST) Magnesium 1.9 1.5 - 2.5 mg/dL 10/17/2017 7:30 AM EST [facility] Plasma specimen (specimen) 10/17/2017 6:47 AM EST 10/17/2017 6:54 AM EST us David Mendenhall MD LAB BLOOD ORDERABLES Final Resu lt Performing Organization Address [facility] Co de Phone Number [facility] [address] [facility] * (ABNORMAL) Hepatic Function Panel (10/17/2017 6:47 AM EST) Total Bilirubin 0.8 0.0 - 1.5 mg/dL 10/17/2017 7:30 AM EST [facility] Bilirubin, Direct 0.29 0.00 - 0.40 mg/dL 10/17/2017 7:30 AM EST [facility] AST 23 13 - 39 U/L 10/17/2017 7:30 AM EST [facility] ALT 74(H) 7 - 52 U/L 10/17/2017 7:30 AM EST [facility] Alkaline Phosphatase 63 36 - 125 U/L 10/17/2017 7:30 AM EST [facility] Total Protein 4.7(L) 6.4 - 8.9 g/dL 10/17/2017 7:30 AM EST [facility] Albumin 2.5(L) 3.5 - 5.7 g/dL 10/17/2017 7:30 AM EST [facility] Bilirubin, Indirect 0.51 0.00 - 1.10 mg/dL 10/17/2017 7:30 AM EST [facility] Plasma specimen (specimen) 10/17/2017 6:47 AM EST 10/17/2017 6:54 AM EST us David Mendenhall MD LAB BLOOD ORDERABLES Final Resu lt [facility] [address] [place] [address], [facility] [place] * (ABNORMAL) CBC (10/17/2017 6:47 AM EST) WBC 5.6 3.8 - 10.8 10E3/uL 10/17/2017 7:01 AM [facility] RBC 2.03(L) 4.20 - 5.80 10E6/uL 10/17/2017 7:01 AM [facility] Hemoglobin 7.1(L) 13.2 - 17.1 g/dL 10/17/2017 7:01 AM [facility] Hematocrit 20.9(L) 38.5 - 50.0 % 10/17/2017 7:01 AM [facility] MCV 102.9(H) 80.0 - 100.0 fL 10/17/2017 7:01 AM [facility] MCH 34.7(H) 27.0 - 33.0 pg 10/17/2017 7:01 AM [facility] MCHC 33.8 32.0 - 36.0 g/dL 10/17/2017 7:01 AM [facility] RDW 19.9(H) 11.0 - 15.0 % 10/17/2017 7:01 AM [facility] Platelets 152 140 - 400 10E3/uL 10/17/2017 7:01 AM [facility] MPV 9.0 7.5 - 11.5 fL 10/17/2017 7:01 AM EST [facility] Whole blood specimen (specimen) 10/17/2017 6:47 AM EST 10/17/2017 6:54 AM EST David Mendenhall MD LAB BLOOD ORDERABLES Final Resu lt Performing Organization Address City/[facility]/ZIP Co de Phone Number [facility] [address] [facility] * (ABNORMAL) POC Glucose Monitoring Device (10/17/2017 5:57 AM EST) POC Glucose Monitoring Device 102(H) 70 - 100 mg/dL 10/17/2017 6:08 AM EST [facility] Blood specimen (specimen) 10/17/2017 5:57 AM EST 10/17/2017 6:08 AM EST Tami Richardson MD POINT OF CARE TEST ORDERABLES F inal Result Performing Organization Address [facility] Co de Phone Number [facility] [address] [facility] * (ABNORMAL) POC Glucose Monitoring Device (10/16/2017 9:42 PM EST) POC Glucose Monitoring Device 196(H) 70 - 100 mg/dL 10/16/2017 9:43 PM EST [facility] Blood specimen (specimen) 10/16/2017 9:42 PM EST 10/16/2017 9:43 PM EST Tami Richardson MD POINT OF CARE TEST ORDERABLES F inal Result Performing Organization Address City/[facility] Co de Phone Number [facility] [address] [facility] * (ABNORMAL) POC Glucose Monitoring Device (10/16/2017 5:45 PM EST) POC Glucose Monitoring Device 277(H) 70 - 100 mg/dL 10/16/2017 5:46 PM EST [facility] Blood specimen (specimen) 10/16/2017 5:45 PM EST 10/16/2017 5:46 PM EST us Tami Richardson MD POINT OF CARE TEST ORDERABLES F inal Result Performing Organization Address City/[facility] Co de Phone Number [facility] [address] [facility] * (ABNORMAL) POC Glucose Monitoring Device (10/16/2017 12:05 PM EST) POC Glucose Monitoring Device 165(H) 70 - 100 mg/dL 10/16/2017 12:06 PM EST [facility] Blood specimen (specimen) 10/16/2017 12:05 PM EST 10/16/2017 12:05 PM EST Tami Richardson MD POINT OF CARE TEST ORDERABLES F inal Result Performing Organization Address [facility] Co de Phone Number [facility] [address] [facility] * X-ray Portable Chest (10/16/2017 9:34 AM EST) Anatomical Region Laterality Modality Chest Radiographic Sobia ging 10/16/2017 7:49 AM EST Impressions 10/16/2017 9:54 AM EST IMPRESSION: Vascular indistinctness with bibasilar predominant parenchymal opacities, mildly progressed, may be related to atelectasis, pneumonia, to include aspiration, and/or edema. Report Verified by: Landen Taylor M.D. at 10/16/2017 9:54 AM EST Narrative 10/16/2017 9:54 AM EST Exam: XR PORTABLE CHEST Date: 10/16/2017 7:49 AM EST CLINICAL HISTORY: Cough; TECHNIQUE: 1 view of the chest. COMPARISON: 10/12/2017 FINDINGS: Medical Devices: None. Heart and Mediastinum: Unchanged. Lungs and Pleura: Low lung volumes with vascular indistinctness and bibasilar predominant parenchymal opacities, mildly progressed from prior examination. No pleural effusions or evidence of pneumothorax. Bones: No acute osseous abnormalities. Procedure Note Landen Taylor MD - 10/16/2017 Exam: XR PORTABLE CHEST Date: 10/16/2017 7:49 AM EST CLINICAL HISTORY: Cough; TECHNIQUE: 1 view of the chest. COMPARISON: 10/12/2017 FINDINGS: Medical Devices: None. Heart and Mediastinum: Unchanged. Lungs and Pleura: Low lung volumes with vascular indistinctness andbibasilar predominant parenchymal opacities, mildly progressed from priorexamination. No pleural effusions or evidence of pneumothorax. Bones: No acute osseous abnormalities. IMPRESSION: Vascular indistinctness with bibasilar predominant parenchymal opacities,mildly progressed, may be related to atelectasis, pneumonia, to includeaspiration, and/or edema. Report Verified by: Landen Taylor M.D. at 10/16/2017 9:54 AM EST us Fox Han MD IMG DIAGNOSTIC IMAGING ORDERABLE S Final Result * (ABNORMAL) POC Glucose Monitoring Device (10/16/2017 7:58 AM EST) POC Glucose Monitoring Device 136(H) 70 - 100 mg/dL 10/16/2017 8:00 AM EST [facility] Blood specimen (specimen) 10/16/2017 7:58 AM EST 10/16/2017 8:00 AM EST Tami Richardson MD POINT OF CARE TEST ORDERABLES F inal Result [facility] [address] * Tacrolimus level (10/16/2017 6:42 AM EST) Tacrolimus Lvl 5.5 5.0 - 20.0 ng/mL 10/16/2017 12:06 PM EST [facility] Comment: Detection limit: ??2 ng/mL. ??Performed via chemiluminescent microparticle immunoassay on the [employer] i1000. Whole blood specimen (specimen) 10/16/2017 6:42 AM EST 10/16/2017 6:48 AM EST us David Mendenhall MD LAB BLOOD ORDERABLES Final Resu lt [facility] [address] [place] [address], [facility] [place] * (ABNORMAL) Renal Function Panel w/EGFR (10/16/2017 6:42 AM EST) Sodium 141 133 - 146 mmol/L 10/16/2017 7:17 AM [facility] Potassium 3.6 3.5 - 5.3 mmol/L 10/16/2017 7:17 AM [facility] Chloride 107 98 - 110 mmol/L 10/16/2017 7:17 AM [facility] CO2 30 21 - 33 mmol/L 10/16/2017 7:17 AM [facility] Anion Gap 4 3 - 16 mmol/L 10/16/2017 7:17 AM [facility] BUN 53(H) 7 - 25 mg/dL 10/16/2017 7:17 AM [facility] Creatinine 1.46(H) 0.60 - 1.30 mg/dL 10/16/2017 7:17 AM [facility] Glucose 116(H) 70 - 100 mg/dL 10/16/2017 7:17 AM [facility] Calcium 8.4(L) 8.6 - 10.3 mg/dL 10/16/2017 7:17 AM [facility] Phosphorus 3.1 2.1 - 4.7 mg/dL 10/16/2017 7:17 AM [facility] Albumin 2.6(L) 3.5 - 5.7 g/dL 10/16/2017 7:17 AM [facility] Osmolality, Calculated 307(H) 278 - 305 mOsm/kg 10/16/2017 7:17 AM [facility] eGFR AA CKD-EPI 67 See note. 8 7:17 AM [facility] eGFR NONAA CKD-EPI 58 See note. 10/16/2017 7:17 AM [facility] Plasma specimen (specimen) 10/16/2017 6:42 AM EST 10/16/2017 6:48 AM EST [facility] - 10/16/2017 7:17 AM EST As of 10/13/2015 the estimated GFR is [...] equation to estimate glomerular filtration rate. ??J[employer]ifer [employer] Manager Med. 2009:150(9):604-12 us David Mendenhall MD LAB BLOOD ORDERABLES Final Resu lt Performing Organization Address [facility] Co de Phone Number [facility] [address] * Magnesium (10/16/2017 6:42 AM EST) Magnesium 2.2 1.5 - 2.5 mg/dL 10/16/2017 7:17 AM EST [facility] Plasma specimen (specimen) 10/16/2017 6:42 AM EST 10/16/2017 6:48 AM EST us David Mendenhall MD LAB BLOOD ORDERABLES Final Resu lt Performing Organization Address [facility] Co de Phone Number [facility] [address] * (ABNORMAL) Hepatic Function Panel (10/16/2017 6:42 AM EST) Total Bilirubin 0.9 0.0 - 1.5 mg/dL 10/16/2017 7:17 AM EST [facility] Bilirubin, Direct 0.28 0.00 - 0.40 mg/dL 10/16/2017 7:17 AM EST [facility] AST 24 13 - 39 U/L 10/16/2017 7:17 AM EST [facility] ALT 95(H) 7 - 52 U/L 10/16/2017 7:17 AM EST [facility] [facility] Alkaline Phosphatase 70 36 - 125 U/L 10/16/2017 7:17 AM EST [facility] Total Protein 4.6(L) 6.4 - 8.9 g/dL 10/16/2017 7:17 AM EST [facility] Albumin 2.6(L) 3.5 - 5.7 g/dL 10/16/2017 7:17 AM [facility] Bilirubin, Indirect 0.62 0.00 - 1.10 mg/dL 10/16/2017 7:17 AM [facility] Plasma specimen (specimen) 10/16/2017 6:42 AM EST 10/16/2017 6:48 AM EST us David Mendenhall MD LAB BLOOD ORDERABLES Final Resu lt [facility] [address] [place] [address], [facility] [place] * (ABNORMAL) CBC (10/16/2017 6:42 AM EST) WBC 7.2 3.8 - 10.8 10E3/uL 10/16/2017 7:21 AM [facility] RBC 2.20(L) 4.20 - 5.80 10E6/uL 10/16/2017 7:21 AM [facility] Hemoglobin 7.8(L) 13.2 - 17.1 g/dL 10/16/2017 7:21 AM [facility] Hematocrit 22.7(L) 38.5 - 50.0 % 10/16/2017 7:21 AM [facility] MCV 103.1(H) 80.0 - 100.0 fL 10/16/2017 7:21 AM [facility] MCH 35.6(H) 27.0 - 33.0 pg 10/16/2017 7:21 AM [facility] MCHC 34.6 32.0 - 36.0 g/dL 10/16/2017 7:21 AM [facility] RDW 19.3(H) 11.0 - 15.0 % 10/16/2017 7:21 AM [facility] Platelets 139(L) 140 - 400 10E3/uL 10/16/2017 7:21 AM [facility] MPV 9.9 7.5 - 11.5 fL 10/16/2017 7:21 AM [facility] Whole blood specimen (specimen) 10/16/2017 6:42 AM EST 10/16/2017 6:48 AM EST David Mendenhall MD LAB BLOOD ORDERABLES Final Resu lt Performing Organization Address [facility] de Phone Number [facility] [address] [facility] * (ABNORMAL) POC Glucose Monitoring Device (10/16/2017 6:18 AM EST) POC Glucose Monitoring Device 112(H) 70 - 100 mg/dL 10/16/2017 7:10 AM EST [facility] Blood specimen (specimen) 10/16/2017 6:18 AM EST 10/16/2017 7:10 AM EST us Tami Richardson MD POINT OF CARE TEST ORDERABLES F inal Result Performing Organization Address [facility] de Phone Number [facility] [address] [facility] * (ABNORMAL) POC Glucose Monitoring Device (10/16/2017 12:14 AM EST) POC Glucose Monitoring Device 296(H) 70 - 100 mg/dL 10/16/2017 12:15 AM EST [facility] Blood specimen (specimen) 10/16/2017 12:14 AM EST 10/16/2017 12:15 AM EST us Tami Richardson MD POINT OF CARE TEST ORDERABLES F inal Result Performing Organization Address [facility] de Phone Number [facility] [address] [facility] * (ABNORMAL) POC Glucose Monitoring Device (10/15/2017 8:38 PM EST) POC Glucose Monitoring Device 443(H) 70 - 100 mg/dL 10/15/2017 8:39 PM EST [facility] Blood specimen (specimen) 10/15/2017 8:38 PM EST 10/15/2017 8:39 PM EST us Tami Richardson MD POINT OF CARE TEST ORDERABLES F inal Result [facility] [address] * (ABNORMAL) POC Glucose Monitoring Device (10/15/2017 8:37 PM EST) POC Glucose Monitoring Device 455(H) 70 - 100 mg/dL 10/15/2017 8:39 PM EST [facility] Blood specimen (specimen) 10/15/2017 8:37 PM EST 10/15/2017 8:39 PM EST us Tami Richardson MD POINT OF CARE TEST ORDERABLES F inal Result Performing Organization Address [facility]/ZIP Co de Phone Number [facility] [address] * (ABNORMAL) POC Glucose Monitoring Device (10/15/2017 5:45 PM EST) POC Glucose Monitoring Device 299(H) 70 - 100 mg/dL 10/15/2017 5:57 PM EST [facility] Blood specimen (specimen) 10/15/2017 5:45 PM EST 10/15/2017 5:56 PM EST us Tami Richardson MD POINT OF CARE TEST ORDERABLES F inal Result Performing Organization Address City/[facility]/ZIP Co de Phone Number [facility] [address] * (ABNORMAL) POC Glucose Monitoring Device (10/15/2017 12:21 PM EST) POC Glucose Monitoring Device 148(H) 70 - 100 mg/dL 10/15/2017 12:22 PM EST [facility] Blood specimen (specimen) 10/15/2017 12:21 PM EST 10/15/2017 12:22 PM EST us Tami Richardson MD POINT OF CARE TEST ORDERABLES F inal Result [facility] [address] [facility] * (ABNORMAL) POC Glucose Monitoring Device (10/15/2017 8:02 AM EST) POC Glucose Monitoring Device 111(H) 70 - 100 mg/dL 10/15/2017 8:03 AM EST [facility] Blood specimen (specimen) 10/15/2017 8:02 AM EST 10/15/2017 8:03 AM EST Tami Richardson MD POINT OF CARE TEST ORDERABLES F inal Result Performing Organization Address [facility] Co de Phone Number [facility] [address] [place] [address]. [address] * (ABNORMAL) POC Glucose Monitoring Device (10/15/2017 5:54 AM EST) POC Glucose Monitoring Device 112(H) 70 - 100 mg/dL 10/15/2017 5:55 AM EST [facility] Blood specimen (specimen) 10/15/2017 5:54 AM EST 10/15/2017 5:55 AM EST Tami Richardson MD POINT OF CARE TEST ORDERABLES F inal Result Performing Organization Address [facility] Co de Phone Number [facility] [address] [facility] * (ABNORMAL) Tacrolimus level (10/15/2017 5:53 AM EST) Tacrolimus Lvl 4.4(L) 5.0 - 20.0 ng/mL 10/15/2017 3:00 PM EST [facility] Comment: Detection limit: ??2 ng/mL. ??Performed via chemiluminescent microparticle immunoassay on the [employer] i1000. Whole blood specimen (specimen) 10/15/2017 5:53 AM EST 10/15/2017 6:13 AM EST Shira Feng [facility] BLOOD ORDERABLES Yoselin l Result Performing Organization Address City/[facility] Co de Phone Number [facility] [address] [place], [place] [address]e. [address] * (ABNORMAL) Hepatic Function Panel (10/15/2017 3:57 AM EST) Total Bilirubin 0.7 0.0 - 1.5 mg/dL 10/15/2017 4:39 AM EST [facility] Bilirubin, Direct 0.27 0.00 - 0.40 mg/dL 10/15/2017 4:39 AM EST [facility] AST 27 13 - 39 U/L 10/15/2017 4:39 AM EST [facility] ALT 112(H) 7 - 52 U/L 10/15/2017 4:39 AM EST [facility] Alkaline Phosphatase 64 36 - 125 U/L 10/15/2017 4:39 AM EST [facility] Total Protein 4.5(L) 6.4 - 8.9 g/dL 10/15/2017 4:39 AM EST [facility] Albumin 2.3(L) 3.5 - 5.7 g/dL 10/15/2017 4:39 AM EST [facility] Bilirubin, Indirect 0.43 0.00 - 1.10 mg/dL 10/15/2017 4:39 AM EST [facility] Plasma specimen (specimen) 10/15/2017 3:57 AM EST 10/15/2017 4:04 AM EST Shira Feng [facility] BLOOD ORDERABLES Yoselin l Result [facility] [address] [facility] * Magnesium (10/15/2017 3:57 AM EST) Magnesium 2.3 1.5 - 2.5 mg/dL 10/15/2017 4:39 AM EST [facility] Plasma specimen (specimen) 10/15/2017 3:57 AM EST 10/15/2017 4:04 AM EST Shirarehana Feng [facility] BLOOD ORDERABLES Yoselin l Result [facility] [address] * (ABNORMAL) Renal Function Panel w/EGFR (10/15/2017 3:57 AM EST) Sodium 136 133 - 146 mmol/L 10/15/2017 4:39 AM EST [facility] Potassium 3.9 3.5 - 5.3 mmol/L 10/15/2017 4:39 AM [facility] Chloride 106 98 - 110 mmol/L 10/15/2017 4:39 AM [facility] CO2 30 21 - 33 mmol/L 10/15/2017 4:39 AM [facility] Anion Gap 0(L) 3 - 16 mmol/L 10/15/2017 4:39 AM [facility] BUN 57(H) 7 - 25 mg/dL 10/15/2017 4:39 AM [facility] Creatinine 1.45(H) 0.60 - 1.30 mg/dL 10/15/2017 4:39 AM [facility] Glucose 171(H) 70 - 100 mg/dL 10/15/2017 4:39 AM [facility] Calcium 8.0(L) 8.6 - 10.3 mg/dL 10/15/2017 4:39 AM [facility] Phosphorus 2.9 2.1 - 4.7 mg/dL 10/15/2017 4:39 AM [facility] Albumin 2.3(L) 3.5 - 5.7 g/dL 10/15/2017 4:39 AM [facility] Osmolality, Calculated 302 278 - 305 mOsm/kg 10/15/2017 4:39 AM [facility] eGFR AA CKD-EPI 68 See note. 8 4:39 AM [facility] eGFR NONAA CKD-EPI 59 See note. 10/15/2017 4:39 AM [facility] Plasma specimen (specimen) 10/15/2017 3:57 AM EST 10/15/2017 4:04 AM EST [facility] - 10/15/2017 4:39 AM EST As of 10/13/2015 the estimated GFR is [...] equation to estimate glomerular filtration rate. ??Jennifer [employer] Flow Manager Med. 2009:150(9):604-12 Shira Feng [facility] BLOOD ORDERABLES Yoselin l Result [facility] [address] [place] [address], [facility] [place] * (ABNORMAL) CBC (10/15/2017 3:57 AM EST) WBC 5.7 3.8 - 10.8 10E3/uL 10/15/2017 4:11 AM EST [facility] RBC 2.06(L) 4.20 - 5.80 10E6/uL 10/15/2017 4:11 AM [facility] Hemoglobin 7.3(L) 13.2 - 17.1 g/dL 10/15/2017 4:11 AM [facility] Hematocrit 20.6(L) 38.5 - 50.0 % 10/15/2017 4:11 AM [facility] MCV 100.2(H) 80.0 - 100.0 fL 10/15/2017 4:11 AM [facility] MCH 35.4(H) 27.0 - 33.0 pg 10/15/2017 4:11 AM [facility] MCHC 35.3 32.0 - 36.0 g/dL 10/15/2017 4:11 AM [facility] RDW 18.8(H) 11.0 - 15.0 % 10/15/2017 4:11 AM [facility] Platelets 79(L) 140 - 400 10E3/uL 10/15/2017 4:11 AM [facility] MPV 9.8 7.5 - 11.5 fL 10/15/2017 4:11 AM [facility] Whole blood specimen (specimen) 10/15/2017 3:57 AM EST 10/15/2017 4:04 AM EST Shira Feng [facility] BLOOD ORDERABLES Yoselin l Result [facility] [address] [facility] * (ABNORMAL) POC Glucose Monitoring Device (10/14/2017 8:05 PM EST) POC Glucose Monitoring Device 354(H) 70 - 100 mg/dL 10/14/2017 8:06 PM EST [facility] Blood specimen (specimen) 10/14/2017 8:05 PM EST 10/14/2017 8:06 PM EST Tami Richardson MD POINT OF CARE TEST ORDERABLES F inal Result Performing Organization Address [facility] Co de Phone Number [facility] [address] [facility] * (ABNORMAL) POC Glucose Monitoring Device (10/14/2017 5:06 PM EST) POC Glucose Monitoring Device 370(H) 70 - 100 mg/dL 10/14/2017 5:14 PM EST [facility] Blood specimen (specimen) 10/14/2017 5:06 PM EST 10/14/2017 5:14 PM EST Tami Richardson MD POINT OF CARE TEST ORDERABLES F inal Result Performing Organization Address City/[facility]/ZIP Co de Phone Number [facility] [address] [facility] * (ABNORMAL) POC Glucose Monitoring Device (10/14/2017 12:13 PM EST) POC Glucose Monitoring Device 170(H) 70 - 100 mg/dL 10/14/2017 12:26 PM EST [facility] Blood specimen (specimen) 10/14/2017 12:13 PM EST 10/14/2017 12:25 PM EST Tami Richardson MD POINT OF CARE TEST ORDERABLES F inal Result [facility] [address] * (ABNORMAL) POC Glucose Monitoring Device (10/14/2017 8:04 AM EST) [facility] POC Glucose Monitoring Device 181(H) 70 - 100 mg/dL 10/14/2017 8:06 AM EST [facility] Blood specimen (specimen) 10/14/2017 8:04 AM EST 10/14/2017 8:05 AM EST Tami Richardson MD POINT OF CARE TEST ORDERABLES F inal Result Performing Organization Address City/[facility]/ZIP Co de Phone Number [facility] [address] * (ABNORMAL) Tacrolimus level (10/14/2017 6:49 AM EST) [facility] Tacrolimus Lvl 4.4(L) 5.0 - 20.0 ng/mL 10/14/2017 3:12 PM EST [facility] Comment: Detection limit: ??2 ng/mL. ??Performed via chemiluminescent microparticle immunoassay on the [employer] i1000. Whole blood specimen (specimen) 10/14/2017 6:49 AM EST 10/14/2017 7:00 AM EST us Shira Feng [facility] BLOOD ORDERABLES Yoselin l Result Performing Organization Address City/[facility]/ZIP Co de Phone Number [facility] [address] [facility] * (ABNORMAL) Hepatic Function Panel (10/14/2017 6:49 AM EST) [facility] Total Bilirubin 0.8 0.0 - 1.5 mg/dL 10/14/2017 7:48 AM EST [facility] Bilirubin, Direct 0.21 0.00 - 0.40 mg/dL 10/14/2017 7:48 AM EST [facility] AST 28 13 - 39 U/L 10/14/2017 7:48 AM EST [facility] ALT 111(H) 7 - 52 U/L 10/14/2017 7:48 AM EST [facility] Alkaline Phosphatase 54 36 - 125 U/L 10/14/2017 7:48 AM EST [facility] Total Protein 4.1(L) 6.4 - 8.9 g/dL 10/14/2017 7:48 AM EST [facility] Albumin 2.2(L) 3.5 - 5.7 g/dL 10/14/2017 7:48 AM EST [facility] Bilirubin, Indirect 0.59 0.00 - 1.10 mg/dL 10/14/2017 7:48 AM EST [facility] Plasma specimen (specimen) 10/14/2017 6:49 AM EST 10/14/2017 7:01 AM EST Shira Feng EMERGENCY PLANNING AND RESPONSE MANAGER LAB BLOOD ORDERABLES Yoselin l Result [facility] [address] * Magnesium (10/14/2017 6:49 AM EST) Magnesium 2.3 1.5 - 2.5 mg/dL 10/14/2017 7:48 AM EST [facility] Plasma specimen (specimen) 10/14/2017 6:49 AM EST 10/14/2017 7:01 AM EST Shira Feng EMERGENCY PLANNING AND RESPONSE MANAGER LAB BLOOD ORDERABLES Yoselin l Result Performing Organization Address City/[facility] Co de Phone Number [facility] [address] * (ABNORMAL) Renal Function Panel w/EGFR (10/14/2017 6:49 AM EST) Sodium 136 133 - 146 mmol/L 10/14/2017 7:48 AM EST [facility] Potassium 4.1 3.5 - 5.3 mmol/L 10/14/2017 7:48 AM EST [facility] Chloride 104 98 - 110 mmol/L 10/14/2017 7:48 AM EST [facility] CO2 30 21 - 33 mmol/L 10/14/2017 7:48 AM EST [facility] Anion Gap 2(L) 3 - 16 mmol/L 10/14/2017 7:48 AM EST [facility] BUN 59(H) 7 - 25 mg/dL 10/14/2017 7:48 AM [facility] Creatinine 1.46(H) 0.60 - 1.30 mg/dL 10/14/2017 7:48 AM [facility] Glucose 212(H) 70 - 100 mg/dL 10/14/2017 7:48 AM [facility] Calcium 7.7(L) 8.6 - 10.3 mg/dL 10/14/2017 7:48 AM [facility] Phosphorus 3.0 2.1 - 4.7 mg/dL 10/14/2017 7:48 AM [facility] Albumin 2.2(L) 3.5 - 5.7 g/dL 10/14/2017 7:48 AM [facility] Osmolality, Calculated 305 278 - 305 mOsm/kg 10/14/2017 7:48 AM [facility] eGFR AA CKD-EPI 67 See note. 8 7:48 AM [facility] eGFR NONAA CKD-EPI 58 See note. 10/14/2017 7:48 AM [facility] Plasma specimen (specimen) 10/14/2017 6:49 AM EST 10/14/2017 7:01 AM EST Narrative [facility] - 10/14/2017 7:48 AM EST As of 10/13/2015 the estimated GFR is [...] equation to estimate glomerular filtration rate. ??Jennifer [employer]and[employer] Flow Manager Med. 2009:150(9):604-12 Shira Feng [facility] BLOOD ORDERABLES Yoselin robles Result [facility] [address] * (ABNORMAL) POC Glucose Monitoring Device (10/14/2017 6:28 AM EST) POC Glucose Monitoring Device 219(H) 70 - 100 mg/dL 10/14/2017 6:40 AM EST [facility] Blood specimen (specimen) 10/14/2017 6:28 AM EST 10/14/2017 6:40 AM EST Tami Richardson MD POINT OF CARE TEST ORDERABLES F inal Result [facility] [address] * (ABNORMAL) CBC (10/14/2017 6:00 AM EST) [facility] WBC 5.4 3.8 - 10.8 10E3/uL 10/14/2017 6:05 AM [facility] RBC 1.97(L) 4.20 - 5.80 10E6/uL 10/14/2017 6:05 AM [facility] Hemoglobin 6.9(L) 13.2 - 17.1 g/dL 10/14/2017 6:05 AM [facility] Hematocrit 19.6(L) 38.5 - 50.0 % 10/14/2017 6:05 AM [facility] MCV 99.9 80.0 - 100.0 fL 10/14/2017 6:05 AM [facility] MCH 35.3(H) 27.0 - 33.0 pg 10/14/2017 6:05 AM [facility] MCHC 35.3 32.0 - 36.0 g/dL 10/14/2017 6:05 AM [facility] RDW 18.8(H) 11.0 - 15.0 % 10/14/2017 6:05 AM [facility] Platelets 54(L) 140 - 400 10E3/uL 10/14/2017 6:05 AM [facility] MPV 11.0 7.5 - 11.5 fL 10/14/2017 6:05 AM [facility] Whole blood specimen (specimen) 10/14/2017 6:00 AM EST 10/14/2017 5:53 AM EST Shira Feng CNP LAB BLOOD ORDERABLES Yoselin l Result [facility] [address] * Toxoplasma gondii, DNA, Qual, PCR (10/14/2017 4:45 AM EST) Toxoplasma gondii DNA, WB Negative 10/17/2017 3:45 PM EST [facility] Comment: Testing performed by [facility], [address] [place] [address]. This test(s) was developed and its performance characteristics determined and validated by the Department of Pathology and Laboratory Medicine at [facility]. ??It has not been cleared or approved by the U.S. Food and Drug Administration. ??The FDA has determined that such clearance is not necessary. ??This laboratory is certified under the Clinical Laboratory Improvement Amendments of 1988 (CLIA-88) as qualified to perform high-complexity laboratory testing. Reference range: Negative Whole blood specimen (specimen) SERUM SPECIMEN / Unknown 10/14/2017 4:45 AM EST 10/17/2017 3:45 PM EST Comment:S Shira Feng EMERGENCY PLANNING AND RESPONSE MANAGER BODY FLUIDS AND STOOLS OR DERABLES Final Result Performing Organization Address [facility] Co de Phone Number [facility] [address] * LAB (10/14/2017 12:00 AM EST) us Scanning [employer] NURSING INFORMATIONAL/COMMUNICAT ION ORDERABLES Final Result * (ABNORMAL) POC Glucose Monitoring Device (10/13/2017 8:29 PM EST) POC Glucose Monitoring Device 293(H) 70 - 100 mg/dL 10/13/2017 8:30 PM EST [facility] Blood specimen (specimen) 10/13/2017 8:29 PM EST 10/13/2017 8:30 PM EST us Tami Richardson MD POINT OF CARE TEST ORDERABLES F inal Result Performing Organization Address [facility] Co de Phone Number [facility] [address] [facility] * (ABNORMAL) POC Glucose Monitoring Device (10/13/2017 6:40 PM EST) POC Glucose Monitoring Device 233(H) 70 - 100 mg/dL 10/13/2017 6:42 PM EST [facility] Blood specimen (specimen) 10/13/2017 6:40 PM EST 10/13/2017 6:42 PM EST us Tami Richardson MD POINT OF CARE TEST ORDERABLES F inal Result Performing Organization Address [facility] Co de Phone Number [facility] [address] [facility] * (ABNORMAL) POC Glucose Monitoring Device (10/13/2017 2:58 PM EST) POC Glucose Monitoring Device 186(H) 70 - 100 mg/dL 10/13/2017 3:08 PM EST [facility] Blood specimen (specimen) 10/13/2017 2:58 PM EST 10/13/2017 3:08 PM EST us Tami Richardson MD POINT OF CARE TEST ORDERABLES F inal Result Performing Organization Address [facility] Co de Phone Number [facility] [address] [facility] * US Duplex Ooz-Mti-Uqzkpot Comp (10/13/2017 9:25 AM EST) Anatomical Region Laterality Modality Abdomen, Pelvis, Testes, Vascular Ultrasound 10/13/2017 8:05 AM EST Impressions 10/13/2017 11:55 AM EST IMPRESSION: ABDOMEN: 1. 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 2. ??Small fluid collection within the subhepatic recess. LIVER DUPLEX: 1. ??Mild turbulent flow within the main portal vein. 2. ??Normal directional flow and resistive indices, as detailed above. Approved by Anton Young on 10/13/2017 10:57 AM EST I have personally reviewed the images and I agree with this report. Report Verified by: Nicki GOYAL M.D. at 10/13/2017 11:55 AM EST Narrative 10/13/2017 11:55 AM EST EXAM: US ABDOMEN COMPLETE, US DUPLEX [id number] COMPLETE performed on 10/13/2017 10:13 AM EST INDICATION: ??Other - See Comments; status post liver transplant postop day 5 COMPARISON: ??None TECHNIQUE: Grayscale imaging was performed for evaluation of the liver, gallbladder, common bile duct, pancreas, spleen, and kidneys; with limited grayscale and color Doppler evaluation of the upper abdominal aorta and inferior vena cava. FINDINGS: The liver is normal in echogenicity and homogeneous in echotexture. There are no apparent focal hepatic masses. There is no intrahepatic biliary ductal dilation. The common bile duct is normal in caliber, measuring approximately 6 mm. Small amount of fluid within the right subhepatic recess, measuring approximately 3.0 x 0.6 cm. The gallbladder is normal. No free fluid is seen in the abdomen. The pancreas could not be visualized due to overlying bowel gas. The kidneys demonstrate normal size and echogenicity. There is no hydronephrosis. The right kidney measures 10.4 cm in size. The spleen and left kidney are not evaluated on this study. The visualized portions of the aorta and IVC are normal in caliber and demonstrate internal flow. Iliotibial flow within the main portal vein, with a velocity of 45.6 cm/s (previously 150.9 cm/s). Resistive indices range for the main hepatic artery is 0.70-0.75 (previously 0.77), the right hepatic artery is 0.71 (0.68-0.83). The left hepatic artery RI was not calculated, however its waveform is normal. Procedure Note Nicki Goyal MD - 10/13/2017 EXAM: US ABDOMEN COMPLETE, US DUPLEX [id number] COMPLETE performedon 10/13/2017 10:13 AM EST INDICATION: Other - See Comments; status post liver transplant postop day5 COMPARISON: None TECHNIQUE: Grayscale imaging was performed for evaluation of the liver,gallbladder, common bile duct, pancreas, spleen, and kidneys; with limitedgrayscale and color Doppler evaluation of the upper abdominal aorta andinferior vena cava. FINDINGS: The liver is normal in echogenicity and homogeneous in echotexture. Thereare no apparent focal hepatic masses. There is no intrahepatic biliaryductal dilation. The common bile duct is normal in caliber, measuringapproximately 6 mm. Small amount of fluid within the right subhepaticrecess, measuring approximately 3.0 x 0.6 cm. The gallbladder is normal. No free fluid is seen in the abdomen. The pancreas could not be visualized due to overlying bowel gas. The kidneys demonstrate normal size and echogenicity. There is nohydronephrosis. The right kidney measures 10.4 cm in size. The spleen and left kidney are not evaluated on this study. The visualized portions of the aorta and IVC are normal in caliber anddemonstrate internal flow. Iliotibial flow within the main portal vein,with a velocity of 45.6 cm/s (previously 150.9 cm/s). Resistive indicesrange for the main hepatic artery is 0.70-0.75 (previously 0.77), theright hepatic artery is 0.71 (0.68-0.83). The left hepatic artery RI wasnot calculated, however its waveform is normal. IMPRESSION: ABDOMEN: 1. 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 2. Small fluid collection within the subhepatic recess. LIVER DUPLEX: 1. Mild turbulent flow within the main portal vein. 2. Normal directional flow and resistive indices, as detailed above. Approved by Anton Young on 10/13/2017 10:57 AM EST I have personally reviewed the images and I agree with this report. Report Verified by: Nicki GOYAL M.D. at 10/13/2017 11:55 AM EST Karishma Loaiza [place] [facility] [place] Yoselin margaret Result * US Abdomen Complete (10/13/2017 9:25 AM EST) Anatomical Region Laterality Modality Abdomen Ultrasound 10/13/2017 8:05 AM EST Impressions 10/13/2017 11:55 AM EST IMPRESSION: ABDOMEN: 1. 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 2. ??Small fluid collection within the subhepatic recess. LIVER DUPLEX: 1. ??Mild turbulent flow within the main portal vein. 2. ??Normal directional flow and resistive indices, as detailed above. Approved by Anton Young on 10/13/2017 10:57 AM EST I have personally reviewed the images and I agree with this report. Report Verified by: Nicki GOYAL M.D. at 10/13/2017 11:55 AM EST Narrative 10/13/2017 11:55 AM EST EXAM: US ABDOMEN COMPLETE, US DUPLEX [id number] COMPLETE performed on 10/13/2017 10:13 AM EST INDICATION: ??Other - See Comments; status post liver transplant postop day 5 COMPARISON: ??None TECHNIQUE: Grayscale imaging was performed for evaluation of the liver, gallbladder, common bile duct, pancreas, spleen, and kidneys; with limited grayscale and color Doppler evaluation of the upper abdominal aorta and inferior vena cava. FINDINGS: The liver is normal in echogenicity and homogeneous in echotexture. There are no apparent focal hepatic masses. There is no intrahepatic biliary ductal dilation. The common bile duct is normal in caliber, measuring approximately 6 mm. Small amount of fluid within the right subhepatic recess, measuring approximately 3.0 x 0.6 cm. The gallbladder is normal. No free fluid is seen in the abdomen. The pancreas could not be visualized due to overlying bowel gas. The kidneys demonstrate normal size and echogenicity. There is no hydronephrosis. The right kidney measures 10.4 cm in size. The spleen and left kidney are not evaluated on this study. The visualized portions of the aorta and IVC are normal in caliber and demonstrate internal flow. Iliotibial flow within the main portal vein, with a velocity of 45.6 cm/s (previously 150.9 cm/s). Resistive indices range for the main hepatic artery is 0.70-0.75 (previously 0.77), the right hepatic artery is 0.71 (0.68-0.83). The left hepatic artery RI was not calculated, however its waveform is normal. Procedure Note Nicki Goyal MD - 10/13/2017 EXAM: US ABDOMEN COMPLETE, US DUPLEX [id number] COMPLETE performedon 10/13/2017 10:13 AM EST INDICATION: Other - See Comments; status post liver transplant postop day5 COMPARISON: None TECHNIQUE: Grayscale imaging was performed for evaluation of the liver,gallbladder, common bile duct, pancreas, spleen, and kidneys; with limitedgrayscale and color Doppler evaluation of the upper abdominal aorta andinferior vena cava. FINDINGS: The liver is normal in echogenicity and homogeneous in echotexture. Thereare no apparent focal hepatic masses. There is no intrahepatic biliaryductal dilation. The common bile duct is normal in caliber, measuringapproximately 6 mm. Small amount of fluid within the right subhepaticrecess, measuring approximately 3.0 x 0.6 cm. The gallbladder is normal. No free fluid is seen in the abdomen. The pancreas could not be visualized due to overlying bowel gas. The kidneys demonstrate normal size and echogenicity. There is nohydronephrosis. The right kidney measures 10.4 cm in size. The spleen and left kidney are not evaluated on this study. The visualized portions of the aorta and IVC are normal in caliber anddemonstrate internal flow. Iliotibial flow within the main portal vein,with a velocity of 45.6 cm/s (previously 150.9 cm/s). Resistive indicesrange for the main hepatic artery is 0.70-0.75 (previously 0.77), theright hepatic artery is 0.71 (0.68-0.83). The left hepatic artery RI wasnot calculated, however its waveform is normal. IMPRESSION: ABDOMEN: 1. 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 2. Small fluid collection within the subhepatic recess. LIVER DUPLEX: 1. Mild turbulent flow within the main portal vein. 2. Normal directional flow and resistive indices, as detailed above. Approved by Anton Young on 10/13/2017 10:57 AM EST I have personally reviewed the images and I agree with this report. Report Verified by: Nicki GOYAL M.D. at 10/13/2017 11:55 AM EST Karishma Loaiza MD [facility] [place] Yoselin l Result * (ABNORMAL) POC Glucose Monitoring Device (10/13/2017 8:05 AM EST) POC Glucose Monitoring Device 263(H) 70 - 100 mg/dL 10/13/2017 8:06 AM EST [facility] Blood specimen (specimen) 10/13/2017 8:05 AM EST 10/13/2017 8:06 AM EST Tami Richardson MD POINT OF CARE TEST ORDERABLES F inal Result Performing Organization Address [facility] Co de Phone Number [facility] [address] * RACHAEL RHYTHM STRIP - SCAN (10/13/2017 7:32 AM EST) us Scanning Uchhim SCAN DOCS - NO RESULTS Final Res ult * (ABNORMAL) POC Glucose Monitoring Device (10/13/2017 6:19 AM EST) POC Glucose Monitoring Device 273(H) 70 - 100 mg/dL 10/13/2017 6:23 AM EST [facility] Blood specimen (specimen) 10/13/2017 6:19 AM EST 10/13/2017 6:23 AM EST Tami Richardson MD POINT OF CARE TEST ORDERABLES F inal Result Performing Organization Address [facility] de Phone Number [facility] [address] [facility] * (ABNORMAL) Tacrolimus level (10/13/2017 5:26 AM EST) Tacrolimus Lvl 3.0(L) 5.0 - 20.0 ng/mL 10/13/2017 11:02 AM EST [facility] Comment: Detection limit: ??2 ng/mL. ??Performed via chemiluminescent microparticle immunoassay on the [employer] i1000. Whole blood specimen (specimen) 10/13/2017 5:26 AM EST 10/13/2017 6:21 AM EST Shira Feng [facility] BLOOD ORDERABLES Yoselin l Result Performing Organization Address [facility] Co de Phone Number [facility] [address] * (ABNORMAL) Hepatic Function Panel (10/13/2017 5:26 AM EST) Total Bilirubin 0.7 0.0 - 1.5 mg/dL 10/13/2017 6:07 AM EST [facility] Bilirubin, Direct 0.29 0.00 - 0.40 mg/dL 10/13/2017 6:07 AM EST [facility] AST 16 13 - 39 U/L 10/13/2017 6:07 AM EST [facility] ALT 122(H) 7 - 52 U/L 10/13/2017 6:07 AM EST [facility] Alkaline Phosphatase 51 36 - 125 U/L 10/13/2017 6:07 AM EST [facility] Total Protein 4.0(L) 6.4 - 8.9 g/dL 10/13/2017 6:07 AM EST [facility] Albumin 2.2(L) 3.5 - 5.7 g/dL 10/13/2017 6:07 AM EST [facility] Bilirubin, Indirect 0.41 0.00 - 1.10 mg/dL 10/13/2017 6:07 AM EST [facility] Plasma specimen (specimen) 10/13/2017 5:26 AM EST 10/13/2017 5:36 AM EST Shira Feng EMERGENCY PLANNING AND RESPONSE MANAGER LAB BLOOD ORDERABLES Yoselin l Result Performing Organization Address [facility] Co de Phone Number [facility] [address] [employer] [facility]. [address] * Magnesium (10/13/2017 5:26 AM EST) Magnesium 2.2 1.5 - 2.5 mg/dL 10/13/2017 6:07 AM EST [facility] Plasma specimen (specimen) 10/13/2017 5:26 AM EST 10/13/2017 5:36 AM EST Shira Feng [facility] BLOOD ORDERABLES Yoselin l Result Performing Organization Address City/[facility]/ZIP Co de Phone Number [facility] [address] [place] [address], [facility] [place] * (ABNORMAL) Renal Function Panel w/EGFR (10/13/2017 5:26 AM EST) Sodium 139 133 - 146 mmol/L 10/13/2017 6:07 AM EST [facility] Potassium 4.0 3.5 - 5.3 mmol/L 10/13/2017 6:07 AM [facility] Chloride 106 98 - 110 mmol/L 10/13/2017 6:07 AM [facility] CO2 28 21 - 33 mmol/L 10/13/2017 6:07 AM [facility] Anion Gap 5 3 - 16 mmol/L 10/13/2017 6:07 AM [facility] BUN 61(H) 7 - 25 mg/dL 10/13/2017 6:07 AM [facility] Creatinine 1.58(H) 0.60 - 1.30 mg/dL 10/13/2017 6:07 AM [facility] Glucose 285(H) 70 - 100 mg/dL 10/13/2017 6:07 AM [facility] Calcium 7.6(L) 8.6 - 10.3 mg/dL 10/13/2017 6:07 AM [facility] Phosphorus 2.6 2.1 - 4.7 mg/dL 10/13/2017 6:07 AM [facility] Albumin 2.2(L) 3.5 - 5.7 g/dL 10/13/2017 6:07 AM [facility] Osmolality, Calculated 316(H) 278 - 305 mOsm/kg 10/13/2017 6:07 AM [facility] eGFR AA CKD-EPI 61 See note. 8 6:07 AM [facility] eGFR NONAA CKD-EPI 53 See note. 10/13/2017 6:07 AM [facility] Plasma specimen (specimen) 10/13/2017 5:26 AM EST 10/13/2017 5:36 AM EST [facility] - 10/13/2017 6:07 AM EST As of 10/13/2015 the estimated GFR is [...] equation to estimate glomerular filtration rate. ??Jennifer [employer] Flow Manager Med. 2009:150(9):604-12 Shira Feng [facility] BLOOD ORDERABLES Yoselin margaret Result [facility] [address] [place] [address], [facility] [place] * (ABNORMAL) CBC (10/13/2017 5:26 AM EST) WBC 6.2 3.8 - 10.8 10E3/uL 10/13/2017 5:51 AM EST [facility] RBC 2.06(L) 4.20 - 5.80 10E6/uL 10/13/2017 5:51 AM EST [facility] Hemoglobin 7.4(L) 13.2 - 17.1 g/dL 10/13/2017 5:51 AM EST [facility] Hematocrit 20.8(L) 38.5 - 50.0 % 10/13/2017 5:51 AM EST [facility] MCV 101.3(H) 80.0 - 100.0 fL 10/13/2017 5:51 AM EST [facility] MCH 36.2(H) 27.0 - 33.0 pg 10/13/2017 5:51 AM EST [facility] MCHC 35.7 32.0 - 36.0 g/dL 10/13/2017 5:51 AM EST [facility] RDW 18.8(H) 11.0 - 15.0 % 10/13/2017 5:51 AM EST [facility] Platelets 38(L) 140 - 400 10E3/uL 10/13/2017 5:51 AM EST [facility] MPV 9.4 7.5 - 11.5 fL 10/13/2017 5:51 AM EST [facility] Whole blood specimen (specimen) 10/13/2017 5:26 AM EST 10/13/2017 5:36 AM EST Shira Feng [facility] BLOOD ORDERABLES Yoselin l Result Performing Organization Address [facility] Co de Phone Number [facility] [address] [place] [address]. [address] * (ABNORMAL) POC Glucose Monitoring Device (10/13/2017 12:29 AM EST) POC Glucose Monitoring Device 359(H) 70 - 100 mg/dL 10/13/2017 12:31 AM EST [facility] Blood specimen (specimen) 10/13/2017 12:29 AM EST 10/13/2017 12:31 AM EST Tami Richardson MD POINT OF CARE TEST ORDERABLES F inal Result Performing Organization Address [facility] Co de Phone Number [facility] [address] [place] [address]. [address] * (ABNORMAL) POC Glucose Monitoring Device (10/12/2017 7:56 PM EST) POC Glucose Monitoring Device 362(H) 70 - 100 mg/dL 10/12/2017 7:57 PM EST [facility] Blood specimen (specimen) 10/12/2017 7:56 PM EST 10/12/2017 7:57 PM EST Result [facility] Tami Richardson MD POINT OF CARE TEST ORDERABLES F inal Result Performing Organization Address [facility] Co de Phone Number [facility] [address] [place] [address]. [address] * (ABNORMAL) POC Glucose Monitoring Device (10/12/2017 5:15 PM EST) POC Glucose Monitoring Device 411(H) 70 - 100 mg/dL 10/12/2017 5:16 PM EST [facility] Blood specimen (specimen) 10/12/2017 5:15 PM EST 10/12/2017 5:16 PM EST Tami Richardson MD POINT OF CARE TEST ORDERABLES F inal Result [facility] [address] [employer] [facility]. [address] * (ABNORMAL) POC Glucose Monitoring Device (10/12/2017 4:38 PM EST) POC Glucose Monitoring Device 398(H) 70 - 100 mg/dL 10/12/2017 4:40 PM EST [facility] Blood specimen (specimen) 10/12/2017 4:38 PM EST 10/12/2017 4:40 PM EST Tami Richardson MD POINT OF CARE TEST ORDERABLES F inal Result Performing Organization Address City/[facility]/ZIP Co de Phone Number [facility] [address] [place] [employer] [facility]. [address] * (ABNORMAL) POC Glucose Monitoring Device (10/12/2017 12:02 PM EST) POC Glucose Monitoring Device 202(H) 70 - 100 mg/dL 10/12/2017 12:04 PM EST [facility] Blood specimen (specimen) 10/12/2017 12:02 PM EST 10/12/2017 12:04 PM EST us Tami Richardson MD POINT OF CARE TEST ORDERABLES F inal Result Performing Organization Address City/[facility]/ZIP Co de Phone Number [facility] [address] * (ABNORMAL) POC Glucose Monitoring Device (10/12/2017 10:05 AM EST) POC Glucose Monitoring Device 164(H) 70 - 100 mg/dL 10/12/2017 10:06 AM EST [facility] Blood specimen (specimen) 10/12/2017 10:05 AM EST 10/12/2017 10:06 AM EST us Tami Richardson MD POINT OF CARE TEST ORDERABLES F inal Result [facility] [address] [employer] [facility] [employer] [facility]. [address] * (ABNORMAL) POC Glucose Monitoring Device (10/12/2017 9:02 AM EST) POC Glucose Monitoring Device 136(H) 70 - 100 mg/dL 10/12/2017 9:03 AM EST [facility] Blood specimen (specimen) 10/12/2017 9:02 AM EST 10/12/2017 9:03 AM EST us Tami Richardson MD POINT OF CARE TEST ORDERABLES F inal Result Performing Organization Address City/[facility]/ZIP Co de Phone Number [facility] [address] [facility] * (ABNORMAL) POC Glucose Monitoring Device (10/12/2017 7:57 AM EST) POC Glucose Monitoring Device 139(H) 70 - 100 mg/dL 10/12/2017 7:58 AM EST [facility] Blood specimen (specimen) 10/12/2017 7:57 AM EST 10/12/2017 7:58 AM EST us Tami Richardson MD POINT OF CARE TEST ORDERABLES F inal Result Performing Organization Address [facility] Co de Phone Number [facility] [address] [facility] * (ABNORMAL) POC Glucose Monitoring Device (10/12/2017 7:14 AM EST) POC Glucose Monitoring Device 122(H) 70 - 100 mg/dL 10/12/2017 7:25 AM EST [facility] Blood specimen (specimen) 10/12/2017 7:14 AM EST 10/12/2017 7:25 AM EST us Tami Richardson MD POINT OF CARE TEST ORDERABLES F inal Result [facility] [address] [facility] * (ABNORMAL) POC Glucose Monitoring Device (10/12/2017 6:46 AM EST) POC Glucose Monitoring Device 105(H) 70 - 100 mg/dL 10/12/2017 6:57 AM EST [facility] Blood specimen (specimen) 10/12/2017 6:46 AM EST 10/12/2017 6:57 AM EST Tami Richardson MD POINT OF CARE TEST ORDERABLES F inal Result Performing Organization Address City/[facility]/ZIP Co de Phone Number [facility] [address] [facility] * POC Glucose Monitoring Device (10/12/2017 6:28 AM EST) POC Glucose Monitoring Device 96 70 - 100 mg/dL 10/12/2017 6:30 AM EST [facility] Blood specimen (specimen) 10/12/2017 6:28 AM EST 10/12/2017 6:30 AM EST Tami Richardson MD POINT OF CARE TEST ORDERABLES F inal Result Performing Organization Address [facility] de Phone Number [facility] [address] [facility] * X-ray Portable Chest (10/12/2017 6:19 AM EST) Anatomical Region Laterality Modality Chest Radiographic Sobia ging 10/12/2017 6:04 AM EST Impressions 10/12/2017 7:00 AM EST IMPRESSION: Improved bibasilar airspace disease. Approved by Fide Paulino on 10/12/2017 6:41 AM EST I have personally reviewed the images and I agree with this report. Report Verified by: ANDERSON GARRISON M.D. at 10/12/2017 7:00 AM EST Narrative 10/12/2017 7:00 AM EST Exam: XR PORTABLE CHEST dated 10/12/2017 6:04 AM EST CLINICAL HISTORY: Other - Must Specify in Comments; COMPARISON: 10/11/2017 FINDINGS : Right IJ approach central venous catheter sheath terminates in the SVC. The NG tube courses below level of the diaphragm and extends down the [id number]. The lung volumes are low. Bibasilar airspace opacities are decreased bilaterally. No large pleural effusion or pneumothorax. Procedure Note Mercy Garrison MD - 10/12/2017 Exam: XR PORTABLE CHEST dated 10/12/2017 6:04 AM EST CLINICAL HISTORY: Other - Must Specify in Comments; COMPARISON: 10/11/2017 FINDINGS : Right IJ approach central venous catheter sheath terminates in the SVC.The NG tube courses below level of the diaphragm and extends down [id number]. The lung volumes are low. Bibasilar airspace opacities are decreasedbilaterally. No large pleural effusion or pneumothorax. IMPRESSION: Improved bibasilar airspace disease. Approved by Fide Paulino on 10/12/2017 6:41 AM EST I have personally reviewed the images and I agree with this report. Report Verified by: ANDERSON GARRISON M.D. at 10/12/2017 7:00 AM EST Sylvain Soni MD IMG DIAGNOSTIC IMAGING ORDERA BLES Final Result * (ABNORMAL) POC Glucose Monitoring Device (10/12/2017 4:20 AM EST) POC Glucose Monitoring Device 116(H) 70 - 100 mg/dL 10/12/2017 4:22 AM EST [facility] Blood specimen (specimen) 10/12/2017 4:20 AM EST 10/12/2017 4:22 AM EST Tami Richardson MD POINT OF CARE TEST ORDERABLES F inal Result [facility] [address] [facility] * (ABNORMAL) POC Glucose Monitoring Device (10/12/2017 3:11 AM EST) POC Glucose Monitoring Device 129(H) 70 - 100 mg/dL 10/12/2017 3:13 AM EST [facility] Blood specimen (specimen) 10/12/2017 3:11 AM EST 10/12/2017 3:13 AM EST Tami Richardson MD POINT OF CARE TEST ORDERABLES F inal Result Performing Organization Address [facility] Co de Phone Number [facility] [address] [facility] * (ABNORMAL) POC Glucose Monitoring Device (10/12/2017 2:13 AM EST) POC Glucose Monitoring Device 136(H) 70 - 100 mg/dL 10/12/2017 2:16 AM EST [facility] Blood specimen (specimen) 10/12/2017 2:13 AM EST 10/12/2017 2:16 AM EST Tami Richardson MD POINT OF CARE TEST ORDERABLES F inal Result Performing Organization Address [facility] Co de Phone Number [facility] [address] [facility] * Ammonia (10/12/2017 1:10 AM EST) Ammonia 68 27 - 90 ug/dL 10/12/2017 2:46 AM EST [facility] Plasma specimen (specimen) 10/12/2017 1:10 AM EST 10/12/2017 1:15 AM EST Tami Richardson MD LAB BLOOD ORDERABLES Final Resu lt Performing Organization Address [facility] Co de Phone Number [facility] [address] [facility] * (ABNORMAL) Hepatic Function Panel (10/12/2017 1:10 AM EST) Total Bilirubin 0.8 0.0 - 1.5 mg/dL 10/12/2017 1:47 AM EST [facility] Bilirubin, Direct 0.31 0.00 - 0.40 mg/dL 10/12/2017 1:47 AM EST [facility] AST 22 13 - 39 U/L 10/12/2017 1:47 AM EST [facility] ALT 181(H) 7 - 52 U/L 10/12/2017 1:47 AM EST [facility] Alkaline Phosphatase 48 36 - 125 U/L 10/12/2017 1:47 AM EST [facility] Total Protein 4.0(L) 6.4 - 8.9 g/dL 10/12/2017 1:47 AM EST [facility] Albumin 2.1(L) 3.5 - 5.7 g/dL 10/12/2017 1:47 AM EST [facility] Bilirubin, Indirect 0.49 0.00 - 1.10 mg/dL 10/12/2017 1:47 AM EST [facility] Plasma specimen (specimen) 10/12/2017 1:10 AM EST 10/12/2017 1:20 AM EST Shira Feng EMERGENCY PLANNING AND RESPONSE MANAGER LAB BLOOD ORDERABLES Yoselin l Result [facility] [address] * Magnesium (10/12/2017 1:10 AM EST) Magnesium 2.1 1.5 - 2.5 mg/dL 10/12/2017 1:47 AM EST [facility] Plasma specimen (specimen) 10/12/2017 1:10 AM EST 10/12/2017 1:20 AM EST Shira Feng [facility] BLOOD ORDERABLES Yoselin l Result [facility] [address] * (ABNORMAL) Renal Function Panel w/EGFR (10/12/2017 1:10 AM EST) Sodium 143 133 - 146 mmol/L 10/12/2017 1:47 AM EST [facility] Potassium 3.8 3.5 - 5.3 mmol/L 10/12/2017 1:47 AM EST [facility] Chloride 113(H) 98 - 110 mmol/L 10/12/2017 1:47 AM EST [facility] CO2 25 21 - 33 mmol/L 10/12/2017 1:47 AM EST [facility] Anion Gap 5 3 - 16 mmol/L 10/12/2017 1:47 AM EST [facility] BUN 54(H) 7 - 25 mg/dL 10/12/2017 1:47 AM [facility] Creatinine 1.59(H) 0.60 - 1.30 mg/dL 10/12/2017 1:47 AM [facility] Glucose 159(H) 70 - 100 mg/dL 10/12/2017 1:47 AM [facility] Calcium 7.5(L) 8.6 - 10.3 mg/dL 10/12/2017 1:47 AM [facility] Phosphorus 3.1 2.1 - 4.7 mg/dL 10/12/2017 1:47 AM [facility] Albumin 2.1(L) 3.5 - 5.7 g/dL 10/12/2017 1:47 AM [facility] Osmolality, Calculated 314(H) 278 - 305 mOsm/kg 10/12/2017 1:47 AM [facility] eGFR AA CKD-EPI 61 See note. 8 1:47 AM [facility] eGFR NONAA CKD-EPI 52 See note. 10/12/2017 1:47 AM [facility] Plasma specimen (specimen) 10/12/2017 1:10 AM EST 10/12/2017 1:20 AM EST Narrative [facility] - 10/12/2017 1:47 AM EST As of 10/13/2015 the estimated GFR is [...] equation to estimate glomerular filtration rate. ??Jennifer Merchandise Flow Manager Med. 2009:150(9):604-12 us Shira Feng EMERGENCY PLANNING AND RESPONSE MANAGER LAB BLOOD ORDERABLES Yoselin margaret Result [facility] [address] [place] [address], [facility] [place] * (ABNORMAL) CBC (10/12/2017 1:10 AM EST) Pathologist [facility] WBC 9.3 3.8 - 10.8 10E3/uL 10/12/2017 1:30 AM EST [facility] RBC 2.23(L) 4.20 - 5.80 10E6/uL 10/12/2017 1:30 AM [facility] Hemoglobin 8.1(L) 13.2 - 17.1 g/dL 10/12/2017 1:30 AM [facility] Hematocrit 22.7(L) 38.5 - 50.0 % 10/12/2017 1:30 AM [facility] MCV 101.7(H) 80.0 - 100.0 fL 10/12/2017 1:30 AM [facility] MCH 36.2(H) 27.0 - 33.0 pg 10/12/2017 1:30 AM [facility] MCHC 35.6 32.0 - 36.0 g/dL 10/12/2017 1:30 AM [facility] RDW 19.2(H) 11.0 - 15.0 % 10/12/2017 1:30 AM [facility] Platelets 40(L) 140 - 400 10E3/uL 10/12/2017 1:30 AM [facility] MPV 9.1 7.5 - 11.5 fL 10/12/2017 1:30 AM [facility] Whole blood specimen (specimen) 10/12/2017 1:10 AM EST 10/12/2017 1:14 AM EST Shira Feng [facility] BLOOD ORDERABLES Yoselin l Result Performing Organization Address City/State/[facility] Co de Phone Number [facility] [address] * (ABNORMAL) Transplant Monitor Panel (10/12/2017 1:10 AM EST) Pathologist [facility] [place] CD19 Abs 190 24 - 683 Cells/uL 10/12/2017 8:41 AM [facility] CD19 % B Cell 78.5(H) 1.0 - 28.0 % 10/12/2017 8:41 AM [facility] CD3 Abs 31(L) 870 - 2,532 Cells/uL 10/12/2017 8:41 AM [facility] CD3 % 12.3(L) 56.0 - 89.0 % 10/12/2017 8:41 AM EST [facility] Whole blood specimen (specimen) 10/12/2017 1:10 AM EST 10/12/2017 1:15 AM EST Narrative [facility] - 10/12/2017 8:41 AM EST This assay has been modified from the corrugated sheet material sheeter's specifications and has been validated with performance characteristics determined by [facility] in accordance with federal regulations under the Clinical Laboratory Act Amendment of 1988. The modification has not been approved by the FDA which has determined that such approval is not necessary. The test is for clinical purposes and should not be regarded as investigational or for research use. Shira Feng [facility] BLOOD ORDERABLES Yoselin l Result Performing Organization Address [facility] Co de Phone Number [facility] [address] * (ABNORMAL) POC Glucose Monitoring Device (10/12/2017 1:04 AM EST) POC Glucose Monitoring Device 155(H) 70 - 100 mg/dL 10/12/2017 1:06 AM EST [facility] Blood specimen (specimen) 10/12/2017 1:04 AM EST 10/12/2017 1:05 AM EST Tami Richardson MD POINT OF CARE TEST ORDERABLES F inal Result Performing Organization Address [facility] Co de Phone Number [facility] [address] [place] [address]. [address] * (ABNORMAL) POC Glucose Monitoring Device (10/12/2017 12:16 AM EST) POC Glucose Monitoring Device 165(H) 70 - 100 mg/dL 10/12/2017 12:20 AM EST [facility] Blood specimen (specimen) 10/12/2017 12:16 AM EST 10/12/2017 12:20 AM EST Tami Richardson MD POINT OF CARE TEST ORDERABLES F inal Result [facility] [address] [employer] [facility]. [address] * (ABNORMAL) POC Glucose Monitoring Device (10/11/2017 11:06 PM EST) POC Glucose Monitoring Device 174(H) 70 - 100 mg/dL 10/11/2017 11:08 PM EST [facility] Blood specimen (specimen) 10/11/2017 11:06 PM EST 10/11/2017 11:07 PM EST Tami Richardson MD POINT OF CARE TEST ORDERABLES F inal Result Performing Organization Address City/[facility]/ZIP Co de Phone Number [facility] [address] [employer] [facility]. [address] * (ABNORMAL) POC Glucose Monitoring Device (10/11/2017 10:14 PM EST) POC Glucose Monitoring Device 193(H) 70 - 100 mg/dL 10/11/2017 10:17 PM EST [facility] Blood specimen (specimen) 10/11/2017 10:14 PM EST 10/11/2017 10:17 PM EST us Tami Richardson MD POINT OF CARE TEST ORDERABLES F inal Result Performing Organization Address City/[facility]/ZIP Co de Phone Number [facility] [address] [facility]. [address] * (ABNORMAL) POC Glucose Monitoring Device (10/11/2017 9:14 PM EST) POC Glucose Monitoring Device 186(H) 70 - 100 mg/dL 10/11/2017 9:16 PM EST [facility] Blood specimen (specimen) 10/11/2017 9:14 PM EST 10/11/2017 9:16 PM EST us Tami Richardson MD POINT OF CARE TEST ORDERABLES F inal Result [facility] [address] [facility]. [address] * (ABNORMAL) POC Glucose Monitoring Device (10/11/2017 8:28 PM EST) POC Glucose Monitoring Device 168(H) 70 - 100 mg/dL 10/11/2017 8:29 PM EST [facility] Blood specimen (specimen) 10/11/2017 8:28 PM EST 10/11/2017 8:29 PM EST us Tami Richardson MD POINT OF CARE TEST ORDERABLES F inal Result Performing Organization Address City/[facility]/ZIP Co de Phone Number [facility] [address] [facility]. [address] * (ABNORMAL) POC Glucose Monitoring Device (10/11/2017 7:08 PM EST) POC Glucose Monitoring Device 185(H) 70 - 100 mg/dL 10/11/2017 7:09 PM EST [facility] Blood specimen (specimen) 10/11/2017 7:08 PM EST 10/11/2017 7:08 PM EST us Tami Richardson MD POINT OF CARE TEST ORDERABLES F inal Result Performing Organization Address [facility] Co de Phone Number [facility] [address] [facility] * (ABNORMAL) POC Glucose Monitoring Device (10/11/2017 5:52 PM EST) POC Glucose Monitoring Device 219(H) 70 - 100 mg/dL 10/11/2017 5:53 PM EST [facility] Blood specimen (specimen) 10/11/2017 5:52 PM EST 10/11/2017 5:53 PM EST us Tami Richardson MD POINT OF CARE TEST ORDERABLES F inal Result [facility] [address] [facility] * (ABNORMAL) POC Glucose Monitoring Device (10/11/2017 4:42 PM EST) POC Glucose Monitoring Device 235(H) 70 - 100 mg/dL 10/11/2017 4:43 PM EST [facility] Blood specimen (specimen) 10/11/2017 4:42 PM EST 10/11/2017 4:43 PM EST Tami Richardson MD POINT OF CARE TEST ORDERABLES F inal Result Performing Organization Address City/[facility]/ZIP Co de Phone Number [facility] [address] * (ABNORMAL) POC Glucose Monitoring Device (10/11/2017 3:01 PM EST) Pathologist [facility] [place] POC Glucose Monitoring Device 195(H) 70 - 100 mg/dL 10/11/2017 3:02 PM EST [facility] Blood specimen (specimen) 10/11/2017 3:01 PM EST 10/11/2017 3:02 PM EST Tami Richardson MD POINT OF CARE TEST ORDERABLES F inal Result Performing Organization Address [facility] de Phone Number [facility] [address] * (ABNORMAL) CBC (10/11/2017 2:08 PM EST) Pathologist [facility] [place] WBC 10.5 3.8 - 10.8 10E3/uL 10/11/2017 2:30 PM EST [facility] RBC 2.54(L) 4.20 - 5.80 10E6/uL 10/11/2017 2:30 PM EST [facility] Hemoglobin 9.3(L) 13.2 - 17.1 g/dL 10/11/2017 2:30 PM EST [facility] Hematocrit 25.9(L) 38.5 - 50.0 % 10/11/2017 2:30 PM EST [facility] MCV 102.0(H) 80.0 - 100.0 fL 10/11/2017 2:30 PM EST [facility] MCH 36.5(H) 27.0 - 33.0 pg 10/11/2017 2:30 PM EST [facility] MCHC 35.8 32.0 - 36.0 g/dL 10/11/2017 2:30 PM EST [facility] RDW 19.7(H) 11.0 - 15.0 % 10/11/2017 2:30 PM EST [facility] Platelets 41(L) 140 - 400 10E3/uL 10/11/2017 2:30 PM EST [facility] MPV 9.7 7.5 - 11.5 fL 10/11/2017 2:30 PM EST [facility] Whole blood specimen (specimen) 10/11/2017 2:08 PM EST 10/11/2017 2:11 PM EST Sylvain Soni MD LAB BLOOD ORDERABLES Final Re sult Performing Organization Address [facility] Co de Phone Number [facility] [address] [facility]. [address] * (ABNORMAL) POC Glucose Monitoring Device (10/11/2017 2:01 PM EST) POC Glucose Monitoring Device 207(H) 70 - 100 mg/dL 10/11/2017 2:03 PM EST [facility] Blood specimen (specimen) 10/11/2017 2:01 PM EST 10/11/2017 2:03 PM EST us Tami Richardson MD POINT OF CARE TEST ORDERABLES F inal Result Performing Organization Address [facility] Co de Phone Number [facility] [address] [facility] * (ABNORMAL) POC Glucose Monitoring Device (10/11/2017 1:00 PM EST) POC Glucose Monitoring Device 234(H) 70 - 100 mg/dL 10/11/2017 1:01 PM EST [facility] Blood specimen (specimen) 10/11/2017 1:00 PM EST 10/11/2017 1:01 PM EST us Tami Richardson MD POINT OF CARE TEST ORDERABLES F inal Result Performing Organization Address City/[facility]/ZIP Co de Phone Number [facility] [address] [facility] * (ABNORMAL) POC Glucose Monitoring Device (10/11/2017 12:07 PM EST) POC Glucose Monitoring Device 257(H) 70 - 100 mg/dL 10/11/2017 12:08 PM EST [facility] Blood specimen (specimen) 10/11/2017 12:07 PM EST 10/11/2017 12:08 PM EST us Tami Richardson MD POINT OF CARE TEST ORDERABLES F inal Result [facility] [address] [facility] * (ABNORMAL) POC Glucose Monitoring Device (10/11/2017 10:02 AM EST) POC Glucose Monitoring Device 151(H) 70 - 100 mg/dL 10/11/2017 10:04 AM EST [facility] Blood specimen (specimen) 10/11/2017 10:02 AM EST 10/11/2017 10:03 AM EST us Tami Richardson MD POINT OF CARE TEST ORDERABLES F inal Result Performing Organization Address City/[facility]/ZIP Co de Phone Number [facility] [address] [facility] * (ABNORMAL) POC Glucose Monitoring Device (10/11/2017 7:58 AM EST) POC Glucose Monitoring Device 145(H) 70 - 100 mg/dL 10/11/2017 8:00 AM EST [facility] Blood specimen (specimen) 10/11/2017 7:58 AM EST 10/11/2017 7:59 AM EST us Tami Richardson MD POINT OF CARE TEST ORDERABLES F inal Result Performing Organization Address City/[facility]/ZIP Co de Phone Number [facility] [address] [facility] * (ABNORMAL) POC Glucose Monitoring Device (10/11/2017 6:50 AM EST) POC Glucose Monitoring Device 142(H) 70 - 100 mg/dL 10/11/2017 6:53 AM EST [facility] Blood specimen (specimen) 10/11/2017 6:50 AM EST 10/11/2017 6:52 AM EST Tami Richardson MD POINT OF CARE TEST ORDERABLES F inal Result [facility] [address] [place] [address], [facility] * X-ray Portable Chest (10/11/2017 6:26 AM EST) Anatomical Region Laterality Modality Chest Radiographic Sobia ging 10/11/2017 5:56 AM EST Impressions 10/11/2017 6:49 AM EST IMPRESSION: Interval removal of the Stites-Viviana catheter, ET tube, and the NG tube. Increased bibasilar airspace disease, right greater than left. Approved by Fide Paulino on 10/11/2017 6:42 AM EST I have personally reviewed the images and I agree with this report. Report Verified by: ANDERSON GARRISON M.D. at 10/11/2017 6:49 AM EST Narrative 10/11/2017 6:49 AM EST Exam: XR PORTABLE CHEST dated 10/11/2017 5:56 AM EST CLINICAL HISTORY: Dyspnea, unspecified; COMPARISON: 10/09/2017. FINDINGS : There has been interval removal of right IJ approach Stites-Viviana catheter, the endotracheal tube, and the NG tube. Right IJ approach sheath remains terminating in the SVC. The enteric feeding tube courses below the level of the diaphragm and extends beyond the [id number]. The lung volumes are low. The cardiomediastinal contour is stable. There is interval increase in bibasilar patchy airspace opacities, right greater than left. There is no large pleural effusion or evidence of a pneumothorax. Procedure Note Mercy Garrison MD - 10/11/2017 Exam: XR PORTABLE CHEST dated 10/11/2017 5:56 AM EST CLINICAL HISTORY: Dyspnea, unspecified; COMPARISON: 10/09/2017. FINDINGS : There has been interval removal of right IJ approach Stites-Viviana catheter,the endotracheal tube, and the NG tube. Right IJ approach sheath remainsterminating in the SVC. The enteric feeding tube courses below the levelof the diaphragm and extends beyond the [id number]. The lung volumes are low. The cardiomediastinal contour is stable. Thereis interval increase in bibasilar patchy airspace opacities, right greaterthan left. There is no large pleural effusion or evidence of apneumothorax. IMPRESSION: Interval removal of the Stites-Viviana catheter, ET tube, and the NG tube. Increased bibasilar airspace disease, right greater than left. Approved by Fide Paulino on 10/11/2017 6:42 AM EST I have personally reviewed the images and I agree with this report. Report Verified by: ANDERSON GARRISON M.D. at 10/11/2017 6:49 AM EST Ivett Banerjee MD IMG DIAGNOSTIC IMAGI NG ORDERABLES Final Result * (ABNORMAL) Transplant Monitor Panel (10/11/2017 4:23 AM EST) CD19 Abs 218 24 - 683 Cells/uL 10/11/2017 8:45 AM EST [facility] CD19 % B Cell 89.6(H) 1.0 - 28.0 % 10/11/2017 8:45 AM EST [facility] CD3 Abs 8(L) 870 - 2,532 Cells/uL 10/11/2017 8:45 AM EST [facility] CD3 % 3.1(L) 56.0 - 89.0 % 10/11/2017 8:45 AM EST [facility] Whole blood specimen (specimen) 10/11/2017 4:23 AM EST 10/11/2017 7:10 AM EST Narrative [facility] - 10/11/2017 8:45 AM EST This assay has been modified from the corrugated sheet material sheeter's specifications and has been validated with performance characteristics determined by [facility] in accordance with federal regulations under the Clinical Laboratory Act Amendment of 1988. The modification has not been approved by the FDA which has determined that such approval is not necessary. The test is for clinical purposes and should not be regarded as investigational or for research use. Shira Feng CNP LAB BLOOD ORDERABLES Yoselin l Result [facility] [address] [facility] * Magnesium (10/11/2017 4:23 AM EST) Magnesium 2.3 1.5 - 2.5 mg/dL 10/11/2017 5:13 AM EST [facility] Plasma specimen (specimen) 10/11/2017 4:23 AM EST 10/11/2017 4:29 AM EST Karishma Loaiza MD LAB BLOOD ORDERABLES F inal Result Performing Organization Address [facility] Co de Phone Number [facility] [address] * (ABNORMAL) Hepatic Function Panel (10/11/2017 4:23 AM EST) Total Bilirubin 1.0 0.0 - 1.5 mg/dL 10/11/2017 5:13 AM EST [facility] Bilirubin, Direct 0.41(H) 0.00 - 0.40 mg/dL 10/11/2017 5:13 AM EST [facility] AST 71(H) 13 - 39 U/L 10/11/2017 5:13 AM EST [facility] ALT 297(H) 7 - 52 U/L 10/11/2017 5:13 AM EST [facility] Alkaline Phosphatase 46 36 - 125 U/L 10/11/2017 5:13 AM EST [facility] Total Protein 4.4(L) 6.4 - 8.9 g/dL 10/11/2017 5:13 AM EST [facility] Albumin 2.4(L) 3.5 - 5.7 g/dL 10/11/2017 5:13 AM EST [facility] Bilirubin, Indirect 0.59 0.00 - 1.10 mg/dL 10/11/2017 5:13 AM EST [facility] Plasma specimen (specimen) 10/11/2017 4:23 AM EST 10/11/2017 4:29 AM EST Karishma Loaiza MD LAB BLOOD ORDERABLES F inal Result [facility] [address] [employer] [facility] [place] [address], [facility] [place] * (ABNORMAL) Renal Function Panel w/EGFR (10/11/2017 4:23 AM EST) Sodium 142 133 - 146 mmol/L 10/11/2017 5:13 AM EST [facility] Potassium 4.1 3.5 - 5.3 mmol/L 10/11/2017 5:13 AM EST [facility] Chloride 112(H) 98 - 110 mmol/L 10/11/2017 5:13 AM EST [facility] CO2 23 21 - 33 mmol/L 10/11/2017 5:13 AM EST [facility] Anion Gap 7 3 - 16 mmol/L 10/11/2017 5:13 AM EST [facility] BUN 50(H) 7 - 25 mg/dL 10/11/2017 5:13 AM EST [facility] Creatinine 1.69(H) 0.60 - 1.30 mg/dL 10/11/2017 5:13 AM EST [facility] Glucose 148(H) 70 - 100 mg/dL 10/11/2017 5:13 AM EST [facility] Calcium 8.0(L) 8.6 - 10.3 mg/dL 10/11/2017 5:13 AM EST [facility] Phosphorus 4.2 2.1 - 4.7 mg/dL 10/11/2017 5:13 AM EST [facility] Albumin 2.4(L) 3.5 - 5.7 g/dL 10/11/2017 5:13 AM EST [facility] Osmolality, Calculated 310(H) 278 - 305 mOsm/kg 10/11/2017 5:13 AM EST [facility] eGFR AA CKD-EPI 56 See note. 8 5:13 AM EST [facility] eGFR NONAA CKD-EPI 49 See note. 10/11/2017 5:13 AM EST [facility] Plasma specimen (specimen) 10/11/2017 4:23 AM EST 10/11/2017 4:29 AM EST Narrative [facility] - 10/11/2017 5:13 AM EST As of 10/13/2015 the estimated GFR is [...] equation to estimate glomerular filtration rate. ??Jennifer [employer] Med. 2009:150(9):604-12 Karishma Loaiza MD LAB BLOOD ORDERABLES F inal Result [facility] [address] [place] [address], [facility] * (ABNORMAL) CBC (10/11/2017 4:23 AM EST) WBC 9.0 3.8 - 10.8 10E3/uL 10/11/2017 4:36 AM EST [facility] RBC 2.44(L) 4.20 - 5.80 10E6/uL 10/11/2017 4:36 AM EST [facility] Hemoglobin 8.8(L) 13.2 - 17.1 g/dL 10/11/2017 4:36 AM EST [facility] Hematocrit 24.9(L) 38.5 - 50.0 % 10/11/2017 4:36 AM EST [facility] MCV 102.3(H) 80.0 - 100.0 fL 10/11/2017 4:36 AM EST [facility] MCH 36.3(H) 27.0 - 33.0 pg 10/11/2017 4:36 AM EST [facility] MCHC 35.5 32.0 - 36.0 g/dL 10/11/2017 4:36 AM [facility] RDW 20.1(H) 11.0 - 15.0 % 10/11/2017 4:36 AM EST [facility] Platelets 38(L) 140 - 400 10E3/uL 10/11/2017 4:36 AM [facility] MPV 8.6 7.5 - 11.5 fL 10/11/2017 4:36 AM EST [facility] Whole blood specimen (specimen) 10/11/2017 4:23 AM EST 10/11/2017 4:30 AM EST Karishma Loaiza MD LAB BLOOD ORDERABLES F inal Result [facility] [address] [facility] * (ABNORMAL) POC Glucose Monitoring Device (10/11/2017 4:19 AM EST) POC Glucose Monitoring Device 152(H) 70 - 100 mg/dL 10/11/2017 4:25 AM EST [facility] Blood specimen (specimen) 10/11/2017 4:19 AM EST 10/11/2017 4:25 AM EST Tami Richardson MD POINT OF CARE TEST ORDERABLES F inal Result Performing Organization Address [facility] Co de Phone Number [facility] [address] [facility] * (ABNORMAL) POC Glucose Monitoring Device (10/11/2017 2:05 AM EST) POC Glucose Monitoring Device 144(H) 70 - 100 mg/dL 10/11/2017 2:06 AM EST [facility] Blood specimen (specimen) 10/11/2017 2:05 AM EST 10/11/2017 2:06 AM EST Tami Richardson MD POINT OF CARE TEST ORDERABLES F inal Result Performing Organization Address City/[facility]/ZIP Co de Phone Number [facility] [address] [facility] * (ABNORMAL) POC Glucose Monitoring Device (10/11/2017 1:05 AM EST) POC Glucose Monitoring Device 154(H) 70 - 100 mg/dL 10/11/2017 1:08 AM EST [facility] Blood specimen (specimen) 10/11/2017 1:05 AM EST 10/11/2017 1:08 AM EST us Tami Richardson MD POINT OF CARE TEST ORDERABLES F inal Result Performing Organization Address [facility] Co de Phone Number [facility] [address] [facility] * (ABNORMAL) POC Glucose Monitoring Device (10/11/2017 12:04 AM EST) POC Glucose Monitoring Device 180(H) 70 - 100 mg/dL 10/11/2017 12:09 AM EST [facility] Blood specimen (specimen) 10/11/2017 12:04 AM EST 10/11/2017 12:09 AM EST us Tami Richardson MD POINT OF CARE TEST ORDERABLES F inal Result Performing Organization Address [facility] Co de Phone Number [facility] [address] [facility] * (ABNORMAL) POC Glucose Monitoring Device (10/10/2017 11:04 PM EST) POC Glucose Monitoring Device 179(H) 70 - 100 mg/dL 10/10/2017 11:07 PM EST [facility] Blood specimen (specimen) 10/10/2017 11:04 PM EST 10/10/2017 11:07 PM EST us Tami Richardson MD POINT OF CARE TEST ORDERABLES F inal Result Performing Organization Address [facility] Co de Phone Number [facility] [address] [facility] * (ABNORMAL) POC Glucose Monitoring Device (10/10/2017 9:59 PM EST) POC Glucose Monitoring Device 181(H) 70 - 100 mg/dL 10/10/2017 10:06 PM EST [facility] Blood specimen (specimen) 10/10/2017 9:59 PM EST 10/10/2017 10:05 PM EST us Tami Richardson MD POINT OF CARE TEST ORDERABLES F inal Result Performing Organization Address [facility] Co de Phone Number [facility] [address] [facility] * (ABNORMAL) POC Glucose Monitoring Device (10/10/2017 9:00 PM EST) POC Glucose Monitoring Device 186(H) 70 - 100 mg/dL 10/10/2017 9:20 PM EST [facility] Blood specimen (specimen) 10/10/2017 9:00 PM EST 10/10/2017 9:20 PM EST Result Yuri Richardson MD POINT OF CARE TEST ORDERABLES F inal Result Performing Organization Address [facility] Co de Phone Number [facility] [address] [facility] * (ABNORMAL) POC Glucose Monitoring Device (10/10/2017 8:02 PM EST) POC Glucose Monitoring Device 191(H) 70 - 100 mg/dL 10/10/2017 8:22 PM EST [facility] Blood specimen (specimen) 10/10/2017 8:02 PM EST 10/10/2017 8:22 PM EST Result Yuri Richardson MD POINT OF CARE TEST ORDERABLES F inal Result Performing Organization Address [facility] Co de Phone Number [facility] [address] [facility] * (ABNORMAL) POC Glucose Monitoring Device (10/10/2017 6:01 PM EST) POC Glucose Monitoring Device 143(H) 70 - 100 mg/dL 10/10/2017 6:02 PM EST [facility] Blood specimen (specimen) 10/10/2017 6:01 PM EST 10/10/2017 6:02 PM EST Result Yuri Richardson MD POINT OF CARE TEST ORDERABLES F inal Result Performing Organization Address City/[facility]/ZIP Co de Phone Number [facility] [address] [employer] [facility] [employer] [facility] [employer] [facility]. [address] * (ABNORMAL) POC Glucose Monitoring Device (10/10/2017 5:08 PM EST) POC Glucose Monitoring Device 150(H) 70 - 100 mg/dL 10/10/2017 5:10 PM EST [facility] Blood specimen (specimen) 10/10/2017 5:08 PM EST 10/10/2017 5:10 PM EST us Tami Richardson MD POINT OF CARE TEST ORDERABLES F inal Result Performing Organization Address [facility] Co de Phone Number [facility] [address] [place] [employer] [facility] [employer] [facility]. [address] * (ABNORMAL) POC Glucose Monitoring Device (10/10/2017 4:03 PM EST) POC Glucose Monitoring Device 162(H) 70 - 100 mg/dL 10/10/2017 4:04 PM EST [facility] Blood specimen (specimen) 10/10/2017 4:03 PM EST 10/10/2017 4:04 PM EST Result Yuri Richardson MD POINT OF CARE TEST ORDERABLES F inal Result Performing Organization Address [facility] Co de Phone Number [facility] [address] [place] [employer] [facility]. [address] * (ABNORMAL) POC Glucose Monitoring Device (10/10/2017 3:18 PM EST) POC Glucose Monitoring Device 178(H) 70 - 100 mg/dL 10/10/2017 3:19 PM EST [facility] Blood specimen (specimen) 10/10/2017 3:18 PM EST 10/10/2017 3:18 PM EST Result Yuri Richardson MD POINT OF CARE TEST ORDERABLES F inal Result [facility] [address] [place] [address], [facility] [place] * MRI Head WO contrast (10/10/2017 3:00 PM EST) Anatomical Region Laterality Modality Head Magnetic Resonan ce 10/10/2017 1:45 PM EST Impressions 10/10/2017 4:01 PM EST IMPRESSION: Moderately limited study with no ischemic changes. Questionable hazy areas of hyperintense T2 signal in the periventricular white matter, likely chronic, no definite acute finding noted. I have personally reviewed the images and I agree with this report. Report Verified by: RAMYA NICKERSON M.D. at 10/10/2017 4:01 PM EST Narrative 10/10/2017 4:01 PM EST MRI HEAD WITHOUT CONTRAST performed on 10/10/2017 1:45 PM EST Indication: Altered Mental Status; Comparison: CT head 10/09/2017 Technical Factors: Standard multiplanar multisequence MRI of the brain was performed without the use of contrast. Findings: Evaluation is significantly limited by motion artifact. No diffusion restriction is demonstrated. Stites images nondiagnostic due to motion. The midline structures are within normal limits. The ventricles and sulci are normal in size and configuration. There is no evidence of midline shift or mass effect. There is apparent minimal hazy areas of hyperintense T2 signal within the periventricular white matter bilaterally. ? The intracranial arterial and venous flow-voids are normal. There is a small mucous retention cyst in the right maxillary sinus, otherwise the orbits and paranasal sinuses appear normal. Procedure Note Ramya Faustin MD - 10/10/2017 MRI HEAD WITHOUT CONTRAST performed on 10/10/2017 1:45 PM EST Indication: Altered Mental Status; Comparison: CT head 10/09/2017 Technical Factors: Standard multiplanar multisequence MRI of the brain wasperformed without the use of contrast. Findings: Evaluation is significantly limited by motion artifact. No diffusionrestriction is demonstrated. Stites images nondiagnostic due to motion. The midline structures are within normal limits. The ventricles and sulciare normal in size and configuration. There is no evidence of midlineshift or mass effect. There is apparent minimal hazy areas of hyperintenseT2 signal within the periventricular white matter bilaterally. The intracranial arterial and venous flow-voids are normal. There is asmall mucous retention cyst in the right maxillary sinus, otherwise theorbits and paranasal sinuses appear normal. IMPRESSION: Moderately limited study with no ischemic changes. Questionable hazy areasof hyperintense T2 signal in the periventricular white matter, likelychronic, no definite acute finding noted. I have personally reviewed the images and I agree with this report. Report Verified by: RAMYA NICKERSON M.D. at 10/10/2017 4:01 PM EST Ivett Banerjee MD IMG MRI ORDERABLES F inal Result * (ABNORMAL) POC Glucose Monitoring Device (10/10/2017 1:05 PM EST) POC Glucose Monitoring Device 193(H) 70 - 100 mg/dL 10/10/2017 1:06 PM EST [facility] Blood specimen (specimen) 10/10/2017 1:05 PM EST 10/10/2017 1:06 PM EST Tami Richardson MD POINT OF CARE TEST ORDERABLES F inal Result [facility] [address] * (ABNORMAL) Protime-INR (10/10/2017 12:53 PM EST) Protime 16.1(H) 11.8 - 14.8 seconds 10/10/2017 1:52 PM EST [facility] Comment:Effective 07/12/2017 , the PT and PTMIX reference range has changed from 11.6 -14.4 sec to 11.8-14.8 sec. INR 1.3(H) 0.9 - 1.1 10/10/2017 1:52 PM EST [facility] Comment: RECOMMENDED THERAPEUTIC RANGES USING INR : ?Stable oral anticoagulant therapy: ? 2.0 - 3.0 ?Mechanical prosthetic heart valve: ? 2.5 - 3.5 ?Recurrent acute myocardial infarction: ? 2.5 - 3.5 Plasma specimen (specimen) 10/10/2017 12:53 PM EST 10/10/2017 1:26 PM EST Karishma Loaiza MD LAB BLOOD ORDERABLES F inal Result Performing Organization Address [facility] Co de Phone Number [facility] [address] [facility] * Magnesium (10/10/2017 12:53 PM EST) Pathologist [facility] Magnesium 2.2 1.5 - 2.5 mg/dL 10/10/2017 2:02 PM EST [facility] Plasma specimen (specimen) 10/10/2017 12:53 PM EST 10/10/2017 1:33 PM EST Result [facility] Karishma Loaiza MD LAB BLOOD ORDERABLES F inal Result Performing Organization Address [facility] de Phone Number [facility] [address] * (ABNORMAL) Hepatic Function Panel (10/10/2017 12:53 PM EST) Total Bilirubin 1.0 0.0 - 1.5 mg/dL 10/10/2017 2:02 PM EST [facility] Bilirubin, Direct 0.45(H) 0.00 - 0.40 mg/dL 10/10/2017 2:02 PM EST [facility] AST 179(H) 13 - 39 U/L 10/10/2017 2:02 PM EST [facility] ALT 376(H) 7 - 52 U/L 10/10/2017 2:02 PM EST [facility] Alkaline Phosphatase 53 36 - 125 U/L 10/10/2017 2:02 PM EST [facility] Total Protein 4.3(L) 6.4 - 8.9 g/dL 10/10/2017 2:02 PM EST [facility] Albumin 2.2(L) 3.5 - 5.7 g/dL 10/10/2017 2:02 PM EST [facility] Bilirubin, Indirect 0.55 0.00 - 1.10 mg/dL 10/10/2017 2:02 PM EST [facility] Plasma specimen (specimen) 10/10/2017 12:53 PM EST 10/10/2017 1:33 PM EST Karishma Loaiza MD LAB BLOOD ORDERABLES F inal Result [facility] [address] * (ABNORMAL) Renal Function Panel w/EGFR (10/10/2017 12:53 PM EST) Sodium 142 133 - 146 mmol/L 10/10/2017 2:02 PM EST [facility] Potassium 4.4 3.5 - 5.3 mmol/L 10/10/2017 2:02 PM [facility] Chloride 113(H) 98 - 110 mmol/L 10/10/2017 2:02 PM [facility] CO2 22 21 - 33 mmol/L 10/10/2017 2:02 PM [facility] Anion Gap 7 3 - 16 mmol/L 10/10/2017 2:02 PM [facility] BUN 49(H) 7 - 25 mg/dL 10/10/2017 2:02 PM [facility] Creatinine 2.08(H) 0.60 - 1.30 mg/dL 10/10/2017 2:02 PM [facility] Glucose 212(H) 70 - 100 mg/dL 10/10/2017 2:02 PM [facility] Calcium 8.1(L) 8.6 - 10.3 mg/dL 10/10/2017 2:02 PM [facility] Phosphorus 5.0(H) 2.1 - 4.7 mg/dL 10/10/2017 2:02 PM [facility] Albumin 2.2(L) 3.5 - 5.7 g/dL 10/10/2017 2:02 PM [facility] Osmolality, Calculated 313(H) 278 - 305 mOsm/kg 10/10/2017 2:02 PM EST [facility] eGFR AA CKD-EPI 44 See note. 8 2:02 PM EST [facility] eGFR NONAA CKD-EPI 38 See note. 10/10/2017 2:02 PM EST [facility] Plasma specimen (specimen) 10/10/2017 12:53 PM EST 10/10/2017 1:33 PM EST Narrative [facility] - 10/10/2017 2:02 PM EST As of 10/13/2015 the estimated GFR is [...] equation to estimate glomerular filtration rate. ??Jenn[employer] Med. 2009:150(9):604-12 Karishma Loaiza MD LAB BLOOD ORDERABLES F inal Result [facility] [address] * (ABNORMAL) CBC (10/10/2017 12:53 PM EST) WBC 6.9 3.8 - 10.8 10E3/uL 10/10/2017 1:42 PM EST [facility] RBC 2.45(L) 4.20 - 5.80 10E6/uL 10/10/2017 1:42 PM EST [facility] Hemoglobin 8.8(L) 13.2 - 17.1 g/dL 10/10/2017 1:42 PM EST [facility] Hematocrit 25.5(L) 38.5 - 50.0 % 10/10/2017 1:42 PM [facility] MCV 104.0(H) 80.0 - 100.0 fL 10/10/2017 1:42 PM EST [facility] MCH 36.0(H) 27.0 - 33.0 pg 10/10/2017 1:42 PM EST [facility] MCHC 34.6 32.0 - 36.0 g/dL 10/10/2017 1:42 PM EST [facility] RDW 20.6(H) 11.0 - 15.0 % 10/10/2017 1:42 PM EST [facility] Platelets 46(L) 140 - 400 10E3/uL 10/10/2017 1:42 PM EST [facility] Comment:Specimen checked for clots. None detected. MPV 9.2 7.5 - 11.5 fL 10/10/2017 1:42 PM EST [facility] Whole blood specimen (specimen) 10/10/2017 12:53 PM EST 10/10/2017 1:26 PM EST us Karishma Loaiza MD LAB BLOOD ORDERABLES F inal Result Performing Organization Address City/[facility]/ZIP Co de Phone Number [facility] [address] [facility] * (ABNORMAL) POC Glucose Monitoring Device (10/10/2017 12:03 PM EST) [facility] POC Glucose Monitoring Device 191(H) 70 - 100 mg/dL 10/10/2017 12:05 PM EST [facility] Blood specimen (specimen) 10/10/2017 12:03 PM EST 10/10/2017 12:05 PM EST Tami Richardson MD POINT OF CARE TEST ORDERABLES F inal Result Performing Organization Address [facility] Co de Phone Number [facility] [address] [facility] * XR Portable Feeding Tube Check (10/10/2017 12:02 PM EST) Anatomical Region Laterality Modality Abdomen, Chest Radiographic Sobia ging 10/10/2017 11:1 1 AM EST Impressions 10/10/2017 12:43 PM EST IMPRESSION: Feeding tube tip is in the region of the gastric body. Report Verified by: Lion Mike M.D. at 10/10/2017 12:43 PM EST Narrative 10/10/2017 12:43 PM EST XR PORTABLE FEEDING TUBE CHECK dated 10/10/2017 11:11 AM EST CLINICAL HISTORY: feeding tube placement; . TECHNIQUE: AP portable supine view of the upper abdomen was obtained. COMPARISON: None available. FINDINGS: Feeding tube tip is in the region of the gastric body. Additional radiopaque catheter courses along the right midabdomen with the tip projected over the left upper quadrant. Partially visualized raheel project over the left lower quadrant. Nonspecific bowel gas pattern. Lung bases are clear. Procedure Note Lion Mike MD - 10/10/2017 XR PORTABLE FEEDING TUBE CHECK dated 10/10/2017 11:11 AM EST CLINICAL HISTORY: feeding tube placement; . TECHNIQUE: AP portable supine view of the upper abdomen was obtained. COMPARISON: None available. FINDINGS: Feeding tube tip is in the region of the gastric body. Additional radiopaque catheter courses along the right midabdomen with thetip projected over the left upper quadrant. Partially visualized raheel project over the left lower quadrant. Nonspecific bowel gas pattern. Lung bases are clear. IMPRESSION: Feeding tube tip is in the region of the gastric body. Report Verified by: Lion Mike M.D. at 10/10/2017 12:43 PM EST Bo Frias MD IMG DIAGNOSTIC IMAGING ORDERABLE S Final Result * (ABNORMAL) POC Glucose Monitoring Device (10/10/2017 11:03 AM EST) POC Glucose Monitoring Device 183(H) 70 - 100 mg/dL 10/10/2017 11:05 AM EST [facility] Blood specimen (specimen) 10/10/2017 11:03 AM EST 10/10/2017 11:05 AM EST Tami Richardson MD POINT OF CARE TEST ORDERABLES F inal Result [facility] [address] [place], [place] [address] * Echo 2D Comp. w/Contrast (TTE) (10/10/2017 10:43 AM EST) 10/10/2017 10:0 8 AM EST Narrative [facility] - 10/10/2017 5:11 PM EST ? * [facility]* ? [address] [facility] ?[place] [address] ?[phone] Transthoracic Echocardiography (Report amended ) Patient: ?Leoncio Rollins MR #: ? [id number] Account: Study Date: 10/10/2017 Gender: ? M Age: ?42 : ?1975 Room: ? [facility] PARKING ATTENDANT ?Irasema Bernal [facility] ADMITTING ?? Tami Richardson ATTENDING ?? Tami Richardson CONSULTING ??Team, ORDERING ?Bo Frias REFERRING ?? Bo Frias PERFORMING ??Thania Hamilton MD Procedure:ECHO 2D COMPLETE Order:ECHO 2D COMPLETE Accession W/CONTRAST (TTE) ? W/CONTRAST (TTE) ? Number:[id number] ?[id number] Indications: ?Chest Pain, unspecified. PMH: ??S/P Liver transplant 10-08-17, Increased troponin. ??Risk factors: ??Cirrhosis, SAL. Hypertension. Diabetes mellitus. Study data: ??No prior study was available for comparison. ??Study status: ??Routine. ??Procedure: ??Transthoracic echocardiography. Image quality was poor. Scanning was performed from the parasternal, apical, and subcostal acoustic windows. Intravenous contrast (Optison) was administered. ?Transthoracic echocardiography. M-mode, complete 2D, complete spectral Doppler, and color Doppler. Birthdate: ??Patient birthdate: 1975. ??Age: ??Patient is 42yr old. ??Sex: ??Gender: male. ??Height: ??Height: 67in. Height: 67in. Weight: ??Weight: 272.4lb. Weight: 272.4lb. ??Body mass index: ??BMI: 42.8kg/m^2. ??Body surface area: ?BSA: 2.48m^2. ??Patient status: Inpatient. ??Study date: ??Study date: 10/10/2017. Study time: 10:08 AM. ??Location: ??SICU. Study Conclusions - Left ventricle: The cavity size was normal. Wall thickness was ??normal. Systolic function was normal. The estimated ejection ??fraction was in the range of 55% to 60%. Wall motion was normal; ??there were no regional wall motion abnormalities. The tissue ??Doppler parameters were abnormal. The study is not technically ??sufficient to allow evaluation of LV diastolic function. Septal ??flattening in diastole concerning for RV pressure/volume overload. - Left atrium: No right to left shunt with contrast. - Right ventricle: The cavity size was dilated. Systolic function ??was normal by visual assessment. TAPSE: 2.5cm.Tricuspid annular ??systolic velocity: 15cm/s. - Right atrium: The atrium was dilated. - Pulmonary arteries: Systolic pressure could not be accurately ??estimated but it is elevated at at least 42 m mHg + the RA ??pressure. - Inferior vena cava: Poorly visualized. - Pericardium, extracardiac: A trivial pericardial effusion was ??identified. Cardiac Anatomy Left ventricle: - The cavity size was normal. Wall thickness was normal. Systolic ??function was normal. The estimated ejection fraction was in the ??range of 55% to 60%. Wall motion was normal; there were no ??regional wall motion abnormalities. MAPSE: 1.2cm. Septal ??flattening in diastole concerning for RV pressure/volume overload. - Wall motion score: 1.00. - The tissue Doppler parameters were abnormal. The study is not ??technically sufficient to allow evaluation of LV diastolic ??function. Aortic valve: - Trileaflet; normal thickness leaflets. Mobility was not ??restricted. Doppler: - Transvalvular velocity was within the normal range. There was no ??stenosis. No regurgitation. - Peak velocity ratio of LVOT to aortic valve: 0.59. Aorta: ?? Aortic root: - The aortic root was normal in size. Mitral valve: - Structurally normal valve. Mobility was not restricted. Doppler: - Transvalvular velocity was within the normal range. There was no ??evidence for stenosis. No regurgitation. - Peak gradient (D): 3mm Hg. Left atrium: - The atrium was normal in size. No right to left shunt with ??contrast. Right ventricle: - Poorly visualized. The cavity size was dilated. Systolic function ??was normal by visual assessment. TAPSE: 2.5cm.Tricuspid annular ??systolic velocity: 15cm/s. Pulmonic valve: - Poorly visualized. The valve appears to be grossly normal. Doppler: - Transvalvular velocity was within the normal range. There was no ??evidence for stenosis. No regurgitation. Tricuspid valve: - Structurally normal valve. Doppler: - Transvalvular velocity was within the normal range. Mild ??regurgitation. Pulmonary artery: - Systolic pressure could not be accurately estimated but it is ??elevated at at least 42 m mHg + the RA pressure. Right atrium: - The atrium was dilated. Pericardium: - A trivial pericardial effusion was identified. Systemic veins: Inferior vena cava: - Poorly visualized. Measurements Left ventricle ? Value ?Reference LV ID, ED, PLAX ?(N) ? 5.1 ?? cm ? 4.2 - 5.9 LV ID, ES, PLAX ?3.7 ?? cm ? --------- LV fx shortening, PLAX ? (N) ? 28 ?% ?25 - 43 LV mid-wall fx shortening, PLAX ?(N) ? 14 ?% ?14 - 22 LV PW thickness, ED, PLAX ?(N) ? 0.9 ?? cm ? 0.6 - 1.0 IVS/LV PW ratio, ED, PLAX ?1.27 ? --------- LV PW thickness, ED ?(N) ? 0.9 ?? cm ? 0.6 - 1.0 IVS/LV PW ratio, ED ?1.22 ? --------- LV e', lateral ? 0.07 ??m/sec ??--------- LV E/e', lateral ? 11 ? --------- LV a', lateral ? 0.11 ??m/sec ??--------- LV e'/a', lateral, TDI ? 0.64 ? --------- LV s', lateral ? 0.07 ??m/sec ??--------- LV e', medial ?0.04 ??m/sec ??--------- LV E/e', medial ?20 ? --------- LV a', medial ?0.08 ??m/sec ??--------- LV e'/a', medial ? 0.5 ?--------- LV s', medial ?0.07 ??m/sec ??--------- LV e', average ? 0.055 m/sec ??--------- LV E/e', average ? 15 ? --------- Ventricular septum ? Value ?Reference IVS thickness, ED, PLAX ?(H) ? 1.2 ?? cm ? 0.6 - 1.0 IVS thickness, ED ?(N) ? 1.0 ?? cm ? 0.6 - 1.0 LVOT ? Value ?Reference LVOT peak velocity, S ?1.11 ??m/sec ??--------- LVOT peak gradient, S ?5 ? mm Hg ??--------- LVOT mean gradient, S ?3 ? mm Hg ??--------- Aortic valve ? Value ?Reference Aortic valve peak velocity, S ?1.9 ?? m/sec ??--------- Velocity ratio, peak, LVOT/AV ?0.59 ? --------- Aorta ?Value ?Reference Ascending aorta ID, A-P, S ? 2.5 ?? cm ? --------- Aortic root ID, ED, MM ? 3.2 ?? cm ? --------- RVOT ? Value ?Reference RVOT peak velocity, S ?1.05 ??m/sec ??--------- RVOT peak gradient, S ?4 ? mm Hg ??--------- RVOT mean gradient, S ?3 ? mm Hg ??--------- Left atrium ?Value ?Reference LA ID, S-I, ES, A4C ?6.1 ?? cm ? --------- LA area, ES, A4C ? (H) ? 26 ?cm^2 ?? <=20 LA area, ES, A2C ? 22 ?cm^2 ?? --------- LA ID, A-P, ES, MM ? (H) ? 5.2 ?? cm ? 3.0 - 4.0 LA ID/bsa, A-P, ES, MM ? (N) ? 2.1 ?? cm/m^2 1.5 - 2.3 LA/aortic root ratio, MM ? 1.6 ?--------- Mitral valve ? Value ?Reference Mitral E-wave peak velocity ?0.8 ?? m/sec ??--------- Mitral A-wave peak velocity ?1.04 ??m/sec ??--------- Mitral peak gradient, D ?3 ? mm Hg ??--------- Mitral E/A ratio, peak ? 0.77 ? --------- Tricuspid valve ?Value ?Reference Tricuspid regurg peak velocity ? 3.2 ?? m/sec ??--------- Tricuspid peak RV-RA gradient ?42 ?mm Hg ??--------- Tricuspid maximal regurg velocity, ? 3.25 ??m/sec ??--------- PISA Right atrium ? Value ?Reference RA area, ES, A4C ? (H) ? 24 ?cm^2 ?? 10 - 18 Right ventricle ?Value ?Reference RV ID, ED, PLAX ?4.7 ?? cm ? --------- Pulmonic valve ? Value ?Reference Pulmonic valve peak velocity, S ?1 ? m/sec ??--------- Pulmonic valve mean velocity, S ?0.89 ??m/sec ??--------- Legend: (L) ??and ??(H) ??krunal values outside specified reference range. (N) ??moran values inside specified reference range. Amended Thania Hamilton MD [id number] Procedure Note Thania Hamilton MD - 10/10/2017 * [facility]* [address] [place] [address] Transthoracic Echocardiography (Report amended ) Patient: Leoncio Rollins MR #: [id number] Account: Study Date: 10/10/2017 Gender: M Age: 42 : 1975 Room: [facility] BEATRICE Bernal [facility] ADMITTING Tami Richardson ATTENDING Tami Richardson CONSULTING Team, ORDERING Bo Frias REFERRING Bo Frias PERFORMING Thania Hamilton MD Procedure:ECHO 2D COMPLETE Order:ECHO 2D COMPLETE Accession W/CONTRAST (TTE) W/CONTRAST (TTE) Number:[id number] Indications: Chest Pain, unspecified. PMH: S/P Liver transplant 10-08-17, Increased troponin. Risk factors: Cirrhosis, SAL. Hypertension. Diabetes mellitus. Study data: No prior study was available for comparison. Study status: Routine. Procedure: Transthoracic echocardiography. Image quality was poor. Scanning was performed from the parasternal, apical, and subcostal acoustic windows. Intravenous contrast (Optison) was administered. Transthoracic echocardiography. M-mode, complete 2D, complete spectral Doppler, and color Doppler. Birthdate: Patient birthdate: 1975. Age: Patient is 42yr old. Sex: Gender: male. Height: Height: 67in. Height: 67in. Weight: Weight: 272.4lb. Weight: 272.4lb. Body mass index: BMI: 42.8kg/m^2. Body surface area: BSA: 2.48m^2. Patient status: Inpatient. Study date: Study date: 10/10/2017. Study time: 10:08 AM. Location: [facility]. Study Conclusions - Left ventricle: The cavity size was normal. Wall thickness was normal. Systolic function was normal. The estimated ejection fraction was in the range of 55% to 60%. Wall motion was normal; there were no regional wall motion abnormalities. The tissue Doppler parameters were abnormal. The study is not technically sufficient to allow evaluation of LV diastolic function. Septal flattening in diastole concerning for RV pressure/volume overload. - Left atrium: No right to left shunt with contrast. - Right ventricle: The cavity size was dilated. Systolic function was normal by visual assessment. TAPSE: 2.5cm.Tricuspid annular systolic velocity: 15cm/s. - Right atrium: The atrium was dilated. - Pulmonary arteries: Systolic pressure could not be accurately estimated but it is elevated at at least 42 m mHg + the RA pressure. - Inferior vena cava: Poorly visualized. - Pericardium, extracardiac: A trivial pericardial effusion was identified. Cardiac Anatomy Left ventricle: - The cavity size was normal. Wall thickness was normal. Systolic function was normal. The estimated ejection fraction was in the range of 55% to 60%. Wall motion was normal; there were no regional wall motion abnormalities. MAPSE: 1.2cm. Septal flattening in diastole concerning for RV pressure/volume overload. - Wall motion score: 1.00. - The tissue Doppler parameters were abnormal. The study is not technically sufficient to allow evaluation of LV diastolic function. Aortic valve: - Trileaflet; normal thickness leaflets. Mobility was not restricted. Doppler: - Transvalvular velocity was within the normal range. There was no stenosis. No regurgitation. - Peak velocity ratio of LVOT to aortic valve: 0.59. Aorta: Aortic root: - The aortic root was normal in size. Mitral valve: - Structurally normal valve. Mobility was not restricted. Doppler: - Transvalvular velocity was within the normal range. There was no evidence for stenosis. No regurgitation. - Peak gradient (D): 3mm Hg. Left atrium: - The atrium was normal in size. No right to left shunt with contrast. Right ventricle: - Poorly visualized. The cavity size was dilated. Systolic function was normal by visual assessment. TAPSE: 2.5cm.Tricuspid annular systolic velocity: 15cm/s. Pulmonic valve: - Poorly visualized. The valve appears to be grossly normal. Doppler: - Transvalvular velocity was within the normal range. There was no evidence for stenosis. No regurgitation. Tricuspid valve: - Structurally normal valve. Doppler: - Transvalvular velocity was within the normal range. Mild regurgitation. Pulmonary artery: - Systolic pressure could not be accurately estimated but it is elevated at at least 42 m mHg + the RA pressure. Right atrium: - The atrium was dilated. Pericardium: - A trivial pericardial effusion was identified. Systemic veins: Inferior vena cava: - Poorly visualized. Measurements Left ventricle Value Reference LV ID, ED, PLAX (N) 5.1 cm 4.2 - 5.9 LV ID, ES, PLAX 3.7 cm --------- LV fx shortening, PLAX (N) 28 % 25 - 43 LV mid-wall fx shortening, PLAX (N) 14 % 14 - 22 LV PW thickness, ED, PLAX (N) 0.9 cm 0.6 - 1.0 IVS/LV PW ratio, ED, PLAX 1.27 --------- LV PW thickness, ED (N) 0.9 cm 0.6 - 1.0 IVS/LV PW ratio, ED 1.22 --------- LV e', lateral 0.07 m/sec --------- LV E/e', lateral 11 --------- LV a', lateral 0.11 m/sec --------- LV e'/a', lateral, TDI 0.64 --------- LV s', lateral 0.07 m/sec --------- LV e', medial 0.04 m/sec --------- LV E/e', medial 20 --------- LV a', medial 0.08 m/sec --------- LV e'/a', medial 0.5 --------- LV s', medial 0.07 m/sec --------- LV e', average 0.055 m/sec --------- LV E/e', average 15 --------- Ventricular septum Value Reference IVS thickness, ED, PLAX (H) 1.2 cm 0.6 - 1.0 IVS thickness, ED (N) 1.0 cm 0.6 - 1.0 LVOT Value Reference LVOT peak velocity, S 1.11 m/sec --------- LVOT peak gradient, S 5 mm Hg --------- LVOT mean gradient, S 3 mm Hg --------- Aortic valve Value Reference Aortic valve peak velocity, S 1.9 m/sec --------- Velocity ratio, peak, LVOT/AV 0.59 --------- Aorta Value Reference Ascending aorta ID, A-P, S 2.5 cm --------- Aortic root ID, ED, MM 3.2 cm --------- RVOT Value Reference RVOT peak velocity, S 1.05 m/sec --------- RVOT peak gradient, S 4 mm Hg --------- RVOT mean gradient, S 3 mm Hg --------- Left atrium Value Reference LA ID, S-I, ES, A4C 6.1 cm --------- LA area, ES, A4C (H) 26 cm^2 <=20 LA area, ES, A2C 22 cm^2 --------- LA ID, A-P, ES, MM (H) 5.2 cm 3.0 - 4.0 LA ID/bsa, A-P, ES, MM (N) 2.1 cm/m^2 1.5 - 2.3 LA/aortic root ratio, MM 1.6 --------- Mitral valve Value Reference Mitral E-wave peak velocity 0.8 m/sec --------- Mitral A-wave peak velocity 1.04 m/sec --------- Mitral peak gradient, D 3 mm Hg --------- Mitral E/A ratio, peak 0.77 --------- Tricuspid valve Value Reference Tricuspid regurg peak velocity 3.2 m/sec --------- Tricuspid peak RV-RA gradient 42 mm Hg --------- Tricuspid maximal regurg velocity, 3.25 m/sec --------- PISA Right atrium Value Reference RA area, ES, A4C (H) 24 cm^2 10 - 18 Right ventricle Value Reference RV ID, ED, PLAX 4.7 cm --------- Pulmonic valve Value Reference Pulmonic valve peak velocity, S 1 m/sec --------- Pulmonic valve mean velocity, S 0.89 m/sec --------- Legend: (L) and (H) krunal values outside specified reference range. (N) moran values inside specified reference range. Amended Thania Hamilton MD [id number] Bo Frias MD CV ECHO ORDERABLES Edited Result - Final [facility] * (ABNORMAL) POC Glucose Monitoring Device (10/10/2017 10:08 AM EST) POC Glucose Monitoring Device 160(H) 70 - 100 mg/dL 10/10/2017 10:10 AM EST [facility] Blood specimen (specimen) 10/10/2017 10:08 AM EST 10/10/2017 10:10 AM EST Tami Richardson MD POINT OF CARE TEST ORDERABLES F inal Result [facility] [address] * (ABNORMAL) Urinalysis w/Rfl Microscop, Rfl Culture (10/10/2017 10:03 AM EST) Color, UA Yellow Yellow,Straw 10/10/2017 10:29 AM EST [facility] Clarity, UA Clear Clear 10/10/2017 10:29 AM [facility] Specific [place], UA 1.028 1.005 - 1.035 10/10/2017 10:29 AM EST [facility] pH, UA 5.0 5.0 - 8.0 10/10/2017 10:29 AM [facility] Protein, UA 100(A) Negative mg/dL 10/10/2017 10:29 AM [facility] Glucose, UA Negative Negative mg/dL 10/10/2017 10:29 AM [facility] Ketones, UA Negative Negative mg/dL 10/10/2017 10:29 AM [facility] Bilirubin, UA Negative Negative 10/10/2017 10:29 AM [facility] Blood, UA Small(A) Negative 10/10/2017 10:29 AM [facility] Nitrite, UA Negative Negative 10/10/2017 10:29 AM [facility] Urobilinogen, UA <2.0 0.2 - 1.9 mg/dL 10/10/2017 10:29 AM [facility] Leukocyte Esterase, UA Negative Negative 10/10/2017 10:29 AM [facility] Urine specimen (specimen) 10/10/2017 10:03 AM EST 10/10/2017 10:19 AM EST Narrative [facility] - 10/10/2017 10:29 AM EST Microscopic testing not performed when the dipstick is negative for Blood, Leukocyte, Protein, and Nitrite. Urine Culture will not be performed if WBC <= 5, Nitrite negative, Leukocyte negative, and Bacteria less than Few. us Shira Feng EMERGENCY PLANNING AND RESPONSE MANAGER URINE ORDERABLES Final Re sult [facility] [address] * Blood Culture-Peripheral (10/10/2017 10:03 AM EST) Culture Result No Growth After 5 Days [facility] Blood specimen (specimen) BLOOD SPECIMEN / Unknown 10/10/2017 10:03 AM EST 10/10/2017 11:09 AM EST Shira Feng CNP MICROBIOLOGY - GENERAL OR DERABLES Final Result Performing Organization Address [facility] Co de Phone Number [facility] [address] [facility] * Blood Culture-Peripheral (10/10/2017 10:03 AM EST) Culture Result No Growth After 5 Days [facility] Blood specimen (specimen) BLOOD SPECIMEN / Unknown 10/10/2017 10:03 AM EST 10/10/2017 10:22 AM EST Shira Feng CNP MICROBIOLOGY - GENERAL OR DERABLES Final Result Performing Organization Address [facility] Co de Phone Number [facility] [address] [facility] * (ABNORMAL) POC Glucose Monitoring Device (10/10/2017 9:10 AM EST) POC Glucose Monitoring Device 145(H) 70 - 100 mg/dL 10/10/2017 9:12 AM EST [facility] Blood specimen (specimen) 10/10/2017 9:10 AM EST 10/10/2017 9:12 AM EST Tami Richardson MD POINT OF CARE TEST ORDERABLES F inal Result Performing Organization Address City/[facility] Co de Phone Number [facility] [address] [place] [address]. [address] * (ABNORMAL) POC Glucose Monitoring Device (10/10/2017 8:24 AM EST) POC Glucose Monitoring Device 117(H) 70 - 100 mg/dL 10/10/2017 8:26 AM EST [facility] Blood specimen (specimen) 10/10/2017 8:24 AM EST 10/10/2017 8:26 AM EST Tami Richardson MD POINT OF CARE TEST ORDERABLES F inal Result Performing Organization Address [facility] Co de Phone Number [facility] [address] [facility] * (ABNORMAL) POC Glucose Monitoring Device (10/10/2017 8:04 AM EST) Pathologist [facility] POC Glucose Monitoring Device 106(H) 70 - 100 mg/dL 10/10/2017 8:06 AM EST [facility] Blood specimen (specimen) 10/10/2017 8:04 AM EST 10/10/2017 8:05 AM EST Tami Richardson MD POINT OF CARE TEST ORDERABLES F inal Result Performing Organization Address [facility] de Phone Number [facility] [address] [facility] * RACHAEL RHYTHM STRIP - SCAN (10/10/2017 7:09 AM EST) us Scanning Uchhim SCAN DOCS - NO RESULTS Final Res ult * (ABNORMAL) Troponin I (10/10/2017 6:32 AM EST) [facility] Troponin I 0.15(H) 0.00 - 0.03 ng/mL 10/10/2017 7:10 AM EST [facility] Plasma specimen (specimen) 10/10/2017 6:32 AM EST 10/10/2017 6:43 AM EST Tam Neil MD LAB BLOOD ORDERABLES Final Result Performing Organization Address [facility] Co de Phone Number [facility] [address] [facility] * (ABNORMAL) Transplant Monitor Panel (10/10/2017 6:32 AM EST) CD19 Abs 126 24 - 683 Cells/uL 10/10/2017 9:09 AM EST [facility] CD19 % B Cell 88.0(H) 1.0 - 28.0 % 10/10/2017 9:09 AM EST [facility] CD3 Abs 3(L) 870 - 2,532 Cells/uL 10/10/2017 9:09 AM EST [facility] CD3 % 2.3(L) 56.0 - 89.0 % 10/10/2017 9:09 AM EST [facility] Whole blood specimen (specimen) 10/10/2017 6:32 AM EST 10/10/2017 7:16 AM EST Narrative [facility] - 10/10/2017 9:09 AM EST This assay has been modified from the corrugated sheet material sheeter's specifications and has been validated with performance characteristics determined by [facility] in accordance with federal regulations under the Clinical Laboratory Act Amendment of 1988. The modification has not been approved by the FDA which has determined that such approval is not necessary. The test is for clinical purposes and should not be regarded as investigational or for research use. Shira Feng [facility] BLOOD ORDERABLES Yoselin l Result Performing Organization Address City/[facility]/ZIP Co de Phone Number [facility] [address] * (ABNORMAL) POC Glucose Monitoring Device (10/10/2017 5:57 AM EST) POC Glucose Monitoring Device 112(H) 70 - 100 mg/dL 10/10/2017 6:01 AM EST [facility] Blood specimen (specimen) 10/10/2017 5:57 AM EST 10/10/2017 6:00 AM EST Tami Richardson MD POINT OF CARE TEST ORDERABLES F inal Result [facility] [address] * (ABNORMAL) POC Glucose Monitoring Device (10/10/2017 4:00 AM EST) POC Glucose Monitoring Device 118(H) 70 - 100 mg/dL 10/10/2017 4:02 AM EST [facility] Blood specimen (specimen) 10/10/2017 4:00 AM EST 10/10/2017 4:02 AM EST Tami Richardson MD POINT OF CARE TEST ORDERABLES F inal Result Performing Organization Address [facility] Co de Phone Number [facility] [address] * ECG 12 lead (MUSE) (10/10/2017 3:11 AM EST) 10/10/2017 3:11 AM EST Narrative [facility] - 10/10/2017 1:38 PM EST Ventricular Rate: ??105 ??BPM Atrial Rate: ??105 ??BPM P-R Interval: ??140 ??ms QRS Duration: ??98 ??ms QT: ??352 ??ms QTc: ??465 ??ms P [place]: ??26 ??degrees R [place]: ??58 ??degrees T [place]: ??-11 ??degrees Diagnosis Line: ??SINUS TACHYCARDIA ^ CANNOT RULE OUT INFERIOR INFARCT , AGE UNDETERMINED ^ ABNORMAL ECG ^ COMPARED TO THE ECG OF 08-OCT-2017 01:03, ^ MINIMAL CRITERIA FOR INFERIOR INFARCT ARE NOW PRESENT ^ T WAVE INVERSION NOW EVIDENT IN INFERIOR LEADS ^ NONSPECIFIC T WAVE CHANGE NOW EVIDENT IN LATERAL LEADS ^ Confirmed by Carlo PEREZ, PHYLLIS ([id number]) on 10/10/2017 1:38:38 PM us Tam Neil MD ECG ORDERABLES Final Resu lt Performing Organization Address [facility] Co de Phone Number [facility] [address] [facility] [place] [address] * (ABNORMAL) Troponin I (10/10/2017 1:58 AM EST) Troponin I 0.16(H) 0.00 - 0.03 ng/mL 10/10/2017 3:22 AM EST [facility] Comment: RESULTS <0.04: This result is below the 99th percentile for a healthy adult population. Interpret result in light of the clinical presentation. RESULTS 0.04-0.20: This result is a borderline value that may reflect myocardial injury. Interpret result in light of the clinical presentation. RESULTS >0.20: This result is an abnormal value with a high likelihood of myocardial injury. Interpret result in light of the clinical presentation. Plasma specimen (specimen) 10/10/2017 1:58 AM EST 10/10/2017 3:00 AM EST Tami Richardson MD LAB BLOOD ORDERABLES Final Resu lt Performing Organization Address [facility] Co de Phone Number [facility] [address] [facility] * (ABNORMAL) Rapid TEG (10/10/2017 1:58 AM EST) TEG ACT 105.0 86.0 - 118.0 seconds 10/10/2017 3:47 AM EST [facility] Comment:The TEG ACT test par ameter is approved to monitor heparin in adult patients. It has not been approved by the FDA for other uses. TEG R Time 35.0 22 - 44 seconds 10/10/2017 3:47 AM EST [facility] TEG Time 135.0 34 - 138 seconds 10/10/2017 3:47 AM EST [facility] TEG Angle 73.0 64 - 80 degrees 10/10/2017 3:47 AM EST [facility] TEG Max Amplitude 51.5(L) 52 - 71 mm 10/10/2017 3:47 AM EST [facility] TEG Lysis 30 0.0 % 10/10/2017 3:47 AM EST [facility] Whole blood specimen (specimen) 10/10/2017 1:58 AM EST 10/10/2017 2:10 AM EST Ivett Banerjee MD LAB BLOOD ORDERABLES Final Result Performing Organization Address [facility] Co de Phone Number [facility] [address] [facility] * Lactic Acid, Routine (10/10/2017 1:58 AM EST) Lactate 1.9 0.5 - 2.2 mmol/L 10/10/2017 2:32 AM EST [facility] Plasma specimen (specimen) 10/10/2017 1:58 AM EST 10/10/2017 2:01 AM EST us Ivett Banerjee MD LAB BLOOD ORDERABLES Final Result [facility] [address] [employer] [facility] [place] [address], [facility] * (ABNORMAL) Protime-INR (10/10/2017 1:58 AM EST) Protime 16.5(H) 11.8 - 14.8 seconds 10/10/2017 2:15 AM EST [facility] Comment:Effective 07/12/2017 , the PT and PTMIX reference range has changed from 11.6 -14.4 sec to 11.8-14.8 sec. INR 1.3(H) 0.9 - 1.1 10/10/2017 2:15 AM EST [facility] Comment: RECOMMENDED THERAPEUTIC RANGES USING INR : ?Stable oral anticoagulant therapy: ? 2.0 - 3.0 ?Mechanical prosthetic heart valve: ? 2.5 - 3.5 ?Recurrent acute myocardial infarction: ? 2.5 - 3.5 Plasma specimen (specimen) 10/10/2017 1:58 AM EST 10/10/2017 2:01 AM EST us Karishma Loaiza MD LAB BLOOD ORDERABLES F inal Result [facility] [address] [employer] [facility] [place] [address], [facility] [place] * Magnesium (10/10/2017 1:58 AM EST) Magnesium 2.0 1.5 - 2.5 mg/dL 10/10/2017 2:30 AM EST [facility] Plasma specimen (specimen) 10/10/2017 1:58 AM EST 10/10/2017 2:01 AM EST Karishma Loaiza MD LAB BLOOD ORDERABLES F inal Result Performing Organization Address [facility]/ZIP Co de Phone Number [facility] [address] * (ABNORMAL) Hepatic Function Panel (10/10/2017 1:58 AM EST) Total Bilirubin 1.1 0.0 - 1.5 mg/dL 10/10/2017 2:30 AM EST [facility] Bilirubin, Direct 0.53(H) 0.00 - 0.40 mg/dL 10/10/2017 2:30 AM EST [facility] AST 231(H) 13 - 39 U/L 10/10/2017 2:30 AM EST [facility] ALT 439(H) 7 - 52 U/L 10/10/2017 2:30 AM EST [facility] Alkaline Phosphatase 81 36 - 125 U/L 10/10/2017 2:30 AM EST [facility] Total Protein 4.6(L) 6.4 - 8.9 g/dL 10/10/2017 2:30 AM EST [facility] Albumin 2.3(L) 3.5 - 5.7 g/dL 10/10/2017 2:30 AM EST [facility] Bilirubin, Indirect 0.57 0.00 - 1.10 mg/dL 10/10/2017 2:30 AM EST [facility] Plasma specimen (specimen) 10/10/2017 1:58 AM EST 10/10/2017 2:01 AM EST Karishma Loaiza MD LAB BLOOD ORDERABLES F inal Result Performing Organization Address City/[facility]/ZIP Co de Phone Number [facility] [address] * (ABNORMAL) Renal Function Panel w/EGFR (10/10/2017 1:58 AM EST) Sodium 144 133 - 146 mmol/L 10/10/2017 2:30 AM EST [facility] Potassium 4.0 3.5 - 5.3 mmol/L 10/10/2017 2:30 AM [facility] Chloride 113(H) 98 - 110 mmol/L 10/10/2017 2:30 AM [facility] CO2 20(L) 21 - 33 mmol/L 10/10/2017 2:30 AM [facility] Anion Gap 11 3 - 16 mmol/L 10/10/2017 2:30 AM [facility] BUN 46(H) 7 - 25 mg/dL 10/10/2017 2:30 AM [facility] Creatinine 2.22(H) 0.60 - 1.30 mg/dL 10/10/2017 2:30 AM [facility] Glucose 137(H) 70 - 100 mg/dL 10/10/2017 2:30 AM [facility] Calcium 8.4(L) 8.6 - 10.3 mg/dL 10/10/2017 2:30 AM EST [facility] Phosphorus 4.2 2.1 - 4.7 mg/dL 10/10/2017 2:30 AM [facility] Albumin 2.3(L) 3.5 - 5.7 g/dL 10/10/2017 2:30 AM [facility] Osmolality, Calculated 312(H) 278 - 305 mOsm/kg 10/10/2017 2:30 AM [facility] eGFR AA CKD-EPI 41 See note. 8 2:30 AM [facility] eGFR NONAA CKD-EPI 35 See note. 10/10/2017 2:30 AM [facility] Plasma specimen (specimen) 10/10/2017 1:58 AM EST 10/10/2017 2:01 AM EST [facility] - 10/10/2017 2:30 AM EST As of 10/13/2015 the estimated GFR is [...] equation to estimate glomerular filtration rate. ??Jennifer Merchandise Flow Manager Med. 2009:150(9):604-12 Karishma Loaiza MD LAB BLOOD ORDERABLES F inal Result [facility] [address] * (ABNORMAL) CBC (10/10/2017 1:58 AM EST) WBC 9.3 3.8 - 10.8 10E3/uL 10/10/2017 2:07 AM EST [facility] RBC 2.64(L) 4.20 - 5.80 10E6/uL 10/10/2017 2:07 AM EST [facility] Hemoglobin 9.7(L) 13.2 - 17.1 g/dL 10/10/2017 2:07 AM EST [facility] Hematocrit 27.6(L) 38.5 - 50.0 % 10/10/2017 2:07 AM EST [facility] MCV 104.6(H) 80.0 - 100.0 fL 10/10/2017 2:07 AM EST [facility] MCH 36.6(H) 27.0 - 33.0 pg 10/10/2017 2:07 AM EST [facility] MCHC 35.0 32.0 - 36.0 g/dL 10/10/2017 2:07 AM EST [facility] RDW 21.0(H) 11.0 - 15.0 % 10/10/2017 2:07 AM EST [facility] Platelets 63(L) 140 - 400 10E3/uL 10/10/2017 2:07 AM [facility] MPV 8.1 7.5 - 11.5 fL 10/10/2017 2:07 AM EST [facility] Whole blood specimen (specimen) 10/10/2017 1:58 AM EST 10/10/2017 2:01 AM EST Karishma Loaiza MD LAB BLOOD ORDERABLES F inal Result [facility] [address] [facility] * (ABNORMAL) POC Glucose Monitoring Device (10/10/2017 1:56 AM EST) POC Glucose Monitoring Device 122(H) 70 - 100 mg/dL 10/10/2017 1:57 AM EST [facility] Blood specimen (specimen) 10/10/2017 1:56 AM EST 10/10/2017 1:56 AM EST Tami Richardson MD POINT OF CARE TEST ORDERABLES F inal Result Performing Organization Address [facility]/State/[facility] Co de Phone Number [facility] [address] * (ABNORMAL) POC Glucose Monitoring Device (10/10/2017 12:00 AM EST) POC Glucose Monitoring Device 138(H) 70 - 100 mg/dL 10/10/2017 12:02 AM EST [facility] Blood specimen (specimen) 10/10/2017 10/10/2017 12:01 AM EST Tami Richardson MD POINT OF CARE TEST ORDERABLES F inal Result Performing Organization Address [facility] de Phone Number [facility] [address] [facility] * EKG - SCAN (10/10/2017 12:00 AM EST) us Scanning Uchhim SCAN DOCS - NO RESULTS Final Res ult * (ABNORMAL) POC Glucose Monitoring Device (10/09/2017 9:59 PM EST) POC Glucose Monitoring Device 165(H) 70 - 100 mg/dL 10/09/2017 10:00 PM EST [facility] Blood specimen (specimen) 10/09/2017 9:59 PM EST 10/09/2017 10:00 PM EST Tami Richardson MD POINT OF CARE TEST ORDERABLES F inal Result Performing Organization Address [facility]/ZIP Co de Phone Number [facility] [address] [employer] [facility]. [address] * (ABNORMAL) POC Glucose Monitoring Device (10/09/2017 7:58 PM EST) POC Glucose Monitoring Device 170(H) 70 - 100 mg/dL 10/09/2017 8:00 PM EST [facility] Blood specimen (specimen) 10/09/2017 7:58 PM EST 10/09/2017 8:00 PM EST Tami Richardson MD POINT OF CARE TEST ORDERABLES F inal Result Performing Organization Address [facility]/ZIP Co de Phone Number [facility] [address] [facility] * (ABNORMAL) Ammonia (10/09/2017 7:20 PM EST) Ammonia 91(H) 27 - 90 ug/dL 10/09/2017 9:23 PM EST [facility] Plasma specimen (specimen) 10/09/2017 7:20 PM EST 10/09/2017 7:36 PM EST Ivett Banerjee MD LAB BLOOD ORDERABLES Final Result Performing Organization Address [facility] Co de Phone Number [facility] [address] [facility] * (ABNORMAL) POC Glucose Monitoring Device (10/09/2017 6:07 PM EST) POC Glucose Monitoring Device 168(H) 70 - 100 mg/dL 10/09/2017 6:08 PM EST [facility] Blood specimen (specimen) 10/09/2017 6:07 PM EST 10/09/2017 6:07 PM EST Tami Richardson MD POINT OF CARE TEST ORDERABLES F inal Result Performing Organization Address City/[facility]/ZIP Co de Phone Number [facility] [address] [place] [address], [place] * CT Head WO contrast (10/09/2017 5:00 PM EST) Anatomical Region Laterality Modality Head Computed Tomogra phy 10/09/2017 4:51 PM EST Impressions 10/09/2017 7:01 PM EST IMPRESSION: ?? No acute intracranial abnormality. Approved by Juaquin Helton on 10/09/2017 6:43 PM EST I have personally reviewed the images and I agree with this report. Report Verified by: Kim Almonte M.D. at 10/09/2017 7:01 PM EST Narrative 10/09/2017 7:[address] HEAD WO CONTRAST dated 10/09/2017 4:51 PM EST Indication: DECREASED ALERTNESS, status post liver transplant ?? Comparison: CT the head without contrast dated 08/05/2017 Technique: Helically acquired CT images were obtained from the skull base to the vertex. Images were reconstructed in the axial plane with a 5 mm slice thickness. No contrast was administered. Findings: There is no evidence of intracranial hemorrhage or mass. There is no midline shift, mass effect or tonsillar herniation. The brain parenchyma is normal in attenuation. The ventricular system is normal in size and configuration. The paranasal sinuses are clear and the orbits are normal in appearance. The mastoid air cells are well aerated. The calvarium is intact. Procedure Note Markus Almonte MD - 10/09/2017 CT HEAD WO CONTRAST dated 10/09/2017 4:51 PM EST Indication: DECREASED ALERTNESS, status post liver transplant Comparison: CT the head without contrast dated 08/05/2017 Technique: Helically acquired CT images were obtained from the skull baseto the vertex. Images were reconstructed in the axial plane with a 5 mmslice thickness. No contrast was administered. Findings: There is no evidence of intracranial hemorrhage or mass. There is nomidline shift, mass effect or tonsillar herniation. The brain parenchymais normal in attenuation. The ventricular system is normal in size andconfiguration. The paranasal sinuses are clear and the orbits are normal in appearance.The mastoid air cells are well aerated. The calvarium is intact. IMPRESSION: No acute intracranial abnormality. Approved by Juaquin Helton on 10/09/2017 6:43 PM EST I have personally reviewed the images and I agree with this report. Report Verified by: Kim Almonte M.D. at 10/09/2017 7:01 PM EST Erica Acevedo MD IMG CT ORDERABLES Final Resul t * (ABNORMAL) POC Glucose Monitoring Device (10/09/2017 3:57 PM EST) POC Glucose Monitoring Device 169(H) 70 - 100 mg/dL 10/09/2017 3:58 PM EST [facility] Blood specimen (specimen) 10/09/2017 3:57 PM EST 10/09/2017 3:58 PM EST Tami Richardson MD POINT OF CARE TEST ORDERABLES F inal Result [facility] [address] * (ABNORMAL) Blood Gas, Arterial (10/09/2017 3:33 PM EST) pH, Arterial 7.41 7.35 - 7.45 10/09/2017 3:39 PM EST [facility] pCO2, Arterial 34(L) 35 - 45 mm Hg 10/09/2017 3:39 PM EST [facility] pO2, Arterial 123(H) 80 - 100 mm Hg 10/09/2017 3:39 PM EST [facility] HCO3, Arterial 21(L) 22 - 26 mmol/L 10/09/2017 3:39 PM EST [facility] CO2 Content,Arteri al 22(L) 23 - 27 mmol/L 10/09/2017 3:39 PM EST [facility] Base Excess, Arterial -2.9(L) -2.0 - 3.0 mmol/L 10/09/2017 3:39 PM EST [facility] %HBO2, Arterial 97.6 95.0 - 98.0 % 10/09/2017 3:39 PM EST [facility] Carboxyhemoglo bin, Arterial 1.5 % 10/09/2017 3:39 PM EST [facility] Comment: CARBOXYHEMOGLOBIN (CO) REFERENCE RANGES: Non-Smokers: ??<2 % ? Smokers: ??<8 % TOXIC: >20 % Methemoglobin, Arterial 0.7 0.0 - 1.5 % 10/09/2017 3:39 PM EST [facility] Reduced hemoglobin, Arterial <2.4 0.0 - 5.0 % 10/09/2017 3:39 PM EST [facility] Arterial blood specimen (specimen) 10/09/2017 3:33 PM EST 10/09/2017 3:38 PM EST Ivett Banerjee MD LAB BLOOD ORDERABLES Final Result Performing Organization Address [facility] [facility] Co de Phone Number [facility] [address] [facility] * Magnesium (10/09/2017 2:08 PM EST) Magnesium 2.0 1.5 - 2.5 mg/dL 10/09/2017 2:59 PM EST [facility] Plasma specimen (specimen) 10/09/2017 2:08 PM EST 10/09/2017 2:16 PM EST Karishma Loaiza MD LAB BLOOD ORDERABLES F inal Result Performing Organization Address [facility] Co de Phone Number [facility] [address] * (ABNORMAL) Hepatic Function Panel (10/09/2017 2:08 PM EST) Total Bilirubin 1.4 0.0 - 1.5 mg/dL 10/09/2017 2:59 PM EST [facility] Bilirubin, Direct 0.59(H) 0.00 - 0.40 mg/dL 10/09/2017 2:59 PM EST [facility] AST 407(H) 13 - 39 U/L 10/09/2017 2:59 PM EST [facility] ALT 550(H) 7 - 52 U/L 10/09/2017 2:59 PM EST [facility] Alkaline Phosphatase 65 36 - 125 U/L 10/09/2017 2:59 PM EST [facility] Total Protein 5.0(L) 6.4 - 8.9 g/dL 10/09/2017 2:59 PM EST [facility] Albumin 2.6(L) 3.5 - 5.7 g/dL 10/09/2017 2:59 PM EST [facility] Bilirubin, Indirect 0.81 0.00 - 1.10 mg/dL 10/09/2017 2:59 PM EST [facility] Plasma specimen (specimen) 10/09/2017 2:08 PM EST 10/09/2017 2:16 PM EST Karishma Loaiza MD LAB BLOOD ORDERABLES F inal Result [facility] [address] [id number] * (ABNORMAL) Renal Function Panel w/EGFR (10/09/2017 2:08 PM EST) Sodium 144 133 - 146 mmol/L 10/09/2017 2:48 PM EST [facility] Potassium 4.6 3.5 - 5.3 mmol/L 10/09/2017 2:48 PM EST [facility] Chloride 113(H) 98 - 110 mmol/L 10/09/2017 2:48 PM EST [facility] CO2 21 21 - 33 mmol/L 10/09/2017 2:48 PM [facility] Anion Gap 10 3 - 16 mmol/L 10/09/2017 2:48 PM [facility] BUN 41(H) 7 - 25 mg/dL 10/09/2017 2:48 PM [facility] Creatinine 2.12(H) 0.60 - 1.30 mg/dL 10/09/2017 2:48 PM [facility] Glucose 189(H) 70 - 100 mg/dL 10/09/2017 2:48 PM EST [facility] Calcium 8.9 8.6 - 10.3 mg/dL 10/09/2017 2:48 PM EST [facility] Phosphorus 4.1 2.1 - 4.7 mg/dL 10/09/2017 2:59 PM EST [facility] Albumin 2.6(L) 3.5 - 5.7 g/dL 10/09/2017 2:59 PM EST [facility] Osmolality, Calculated 313(H) 278 - 305 mOsm/kg 10/09/2017 2:48 PM EST [facility] eGFR AA CKD-EPI 43 See note. 8 2:48 PM EST [facility] eGFR NONAA CKD-EPI 37 See note. 10/09/2017 2:48 PM EST [facility] Plasma specimen (specimen) 10/09/2017 2:08 PM EST 10/09/2017 2:16 PM EST Narrative [facility] - 10/09/2017 2:59 PM EST As of 10/13/2015 the estimated GFR is [...] equation to estimate glomerular filtration rate. ??Jennifer [employer] Flow Manager Med. 2009:150(9):604-12 Karishma Loaiza MD LAB BLOOD ORDERABLES F inal Result [facility] [address] * (ABNORMAL) Protime-INR (10/09/2017 2:08 PM EST) Protime 16.3(H) 11.8 - 14.8 seconds 10/09/2017 2:39 PM EST [facility] Comment:Effective 07/12/2017 , the PT and PTMIX reference range has changed from 11.6 -14.4 sec to 11.8-14.8 sec. INR 1.3(H) 0.9 - 1.1 10/09/2017 2:39 PM EST [facility] Comment: RECOMMENDED THERAPEUTIC RANGES USING INR : ?Stable oral anticoagulant therapy: ? 2.0 - 3.0 ?Mechanical prosthetic heart valve: ? 2.5 - 3.5 ?Recurrent acute myocardial infarction: ? 2.5 - 3.5 Plasma specimen (specimen) 10/09/2017 2:08 PM EST 10/09/2017 2:15 PM EST Karishma Loaiza MD LAB BLOOD ORDERABLES F inal Result [facility] [address] [place] [address], [facility] [place] * (ABNORMAL) CBC (10/09/2017 2:08 PM EST) WBC 14.9(H) 3.8 - 10.8 10E3/uL 10/09/2017 2:33 PM EST [facility] RBC 3.00(L) 4.20 - 5.80 10E6/uL 10/09/2017 2:33 PM EST [facility] Hemoglobin 10.7(L) 13.2 - 17.1 g/dL 10/09/2017 2:33 PM EST [facility] Hematocrit 31.3(L) 38.5 - 50.0 % 10/09/2017 2:33 PM EST [facility] MCV 104.5(H) 80.0 - 100.0 fL 10/09/2017 2:33 PM EST [facility] MCH 35.9(H) 27.0 - 33.0 pg 10/09/2017 2:33 PM EST [facility] MCHC 34.3 32.0 - 36.0 g/dL 10/09/2017 2:33 PM EST [facility] RDW 21.3(H) 11.0 - 15.0 % 10/09/2017 2:33 PM EST [facility] Platelets 92(L) 140 - 400 10E3/uL 10/09/2017 2:33 PM EST [facility] MPV 8.8 7.5 - 11.5 fL 10/09/2017 2:33 PM EST [facility] Whole blood specimen (specimen) 10/09/2017 2:08 PM EST 10/09/2017 2:15 PM EST us Karishma Loaiza MD LAB BLOOD ORDERABLES F inal Result Performing Organization Address [facility] Co de Phone Number [facility] [address] [facility] * (ABNORMAL) POC Glucose Monitoring Device (10/09/2017 2:06 PM EST) POC Glucose Monitoring Device 173(H) 70 - 100 mg/dL 10/09/2017 2:07 PM EST [facility] Blood specimen (specimen) 10/09/2017 2:06 PM EST 10/09/2017 2:07 PM EST us Tami Richardson MD POINT OF CARE TEST ORDERABLES F inal Result Performing Organization Address [facility] Co de Phone Number [facility] [address] [facility] * RACHAEL RHYTHM STRIP - SCAN (10/09/2017 2:00 PM EST) us Scanning Uchhim SCAN DOCS - NO RESULTS Final Res ult * (ABNORMAL) POC Glucose Monitoring Device (10/09/2017 12:27 PM EST) POC Glucose Monitoring Device 164(H) 70 - 100 mg/dL 10/09/2017 12:29 PM EST [facility] Blood specimen (specimen) 10/09/2017 12:27 PM EST 10/09/2017 12:29 PM EST Tami Richardson MD POINT OF CARE TEST ORDERABLES F inal Result Performing Organization Address [facility] Co de Phone Number [facility] [address] [facility] * US Duplex Avh-Eqp-Enbbuih Comp (10/09/2017 11:20 AM EST) Anatomical Region Laterality Modality Abdomen, Pelvis, Testes, Vascular Ultrasound 10/09/2017 9:53 AM EST Impressions 10/09/2017 12:11 PM EST IMPRESSION: Abdomen: Normal sonographic appearance of the transplant liver. Liver duplex: Mildly turbulent flow within the main portal vein. Normal directional flow with resistive indices as detailed above. Report Verified by: CARLOS EDUARDO ROSS MD at 10/09/2017 12:11 PM EST Narrative 10/09/2017 12:11 PM EST EXAM: Ultrasound of the abdomen: ??10/09/2017 9:53 AM EST EXAM: Limited duplex ultrasound of the liver INDICATION: ??Liver Transplant; postop day 1 COMPARISON: ??None TECHNIQUE: Grayscale imaging was performed for evaluation of the liver, gallbladder, common bile duct, pancreas, spleen, and kidneys; with limited grayscale and color Doppler evaluation of the upper abdominal aorta and inferior vena cava. Color and spectral (duplex) Doppler analysis of the hepatic vasculature was also performed. FINDINGS: The pancreas is obscured due to overlying bowel gas and not well visualized. Evaluation of the transplant liver is somewhat limited due to limited sonographic window. The transplant liver is normal in echogenicity and homogeneous in echotexture. There are no apparent focal hepatic masses. There is no evidence of intrahepatic biliary ductal dilation. The common bile duct is normal in caliber measuring approximately 5 mm. The gallbladder is surgically absent. No free fluid is seen in the abdomen. The spleen is borderline enlarged, measuring 13.7 cm in longest dimension. The left kidney is not visualized. The right kidney is normal in size and echogenicity without hydronephrosis, measuring 11.1 cm. The visualized portions of the IVC are normal in caliber and demonstrate internal flow. Abdominal aorta was not evaluated. Duplex evaluation of the hepatic vasculature demonstrates normal flow in the right, middle and left hepatic veins. The right, left and main portal vein demonstrate hepatopetal flow. There is mildly turbulent flow within the main portal vein, with velocities up to 115.9 cm/s. Right, main and left hepatic arteries demonstrate normal wave forms. The resistive indices in the main hepatic artery is 0.77, the right hepatic artery is 0.68- 0.83, and the left hepatic artery is 0.74-0.8. Procedure Note Carlos Eduardo Ross MD - 10/09/2017 EXAM: Ultrasound of the abdomen: 10/09/2017 9:53 AM EST EXAM: Limited duplex ultrasound of the liver INDICATION: Liver Transplant; postop day 1 COMPARISON: None TECHNIQUE: Grayscale imaging was performed for evaluation of the liver,gallbladder, common bile duct, pancreas, spleen, and kidneys; with limitedgrayscale and color Doppler evaluation of the upper abdominal aorta andinferior vena cava. Color and spectral (duplex) Doppler analysis of thehepatic vasculature was also performed. FINDINGS: The pancreas is obscured due to overlying bowel gas and not wellvisualized. Evaluation of the transplant liver is somewhat limited due to limitedsonographic window. The transplant liver is normal in echogenicity andhomogeneous in echotexture. There are no apparent focal hepatic masses.There is no evidence of intrahepatic biliary ductal dilation. The commonbile duct is normal in caliber measuring approximately 5 mm. The gallbladder is surgically absent. No free fluid is seen in theabdomen. The spleen is borderline enlarged, measuring 13.7 cm in longestdimension. The left kidney is not visualized. The right kidney is normal in size andechogenicity without hydronephrosis, measuring 11.1 cm. The visualized portions of the IVC are normal in caliber and demonstrateinternal flow. Abdominal aorta was not evaluated. Duplex evaluation of the hepatic vasculature demonstrates normal flow inthe right, middle and left hepatic veins. The right, left and main portalvein demonstrate hepatopetal flow. There is mildly turbulent flow withinthe main portal vein, with velocities up to 115.9 cm/s. Right, main and left hepatic arteries demonstrate normal wave forms. Theresistive indices in the main hepatic artery is 0.77, the right hepaticartery is 0.68- 0.83, and the left hepatic artery is 0.74-0.8. IMPRESSION: Abdomen: Normal sonographic appearance of the transplant liver. Liver duplex: Mildly turbulent flow within the main portal vein. Normal directional flow with resistive indices as detailed above. Report Verified by: CARLOS EDUARDO ROSS MD at 10/09/2017 12:11 PM EST Karishma Loaiza [place] [facility] [place] ORDER[place]LES Yoselin l Result * US Abdomen Complete (10/09/2017 11:20 AM EST) Anatomical Region Laterality Modality Abdomen Ultrasound 10/09/2017 9:53 AM EST Impressions 10/09/2017 12:11 PM EST IMPRESSION: Abdomen: Normal sonographic appearance of the transplant liver. Liver duplex: Mildly turbulent flow within the main portal vein. Normal directional flow with resistive indices as detailed above. Report Verified by: CARLOS EDUARDO ROSS MD at 10/09/2017 12:11 PM EST Narrative 10/09/2017 12:11 PM EST EXAM: Ultrasound of the abdomen: ??10/09/2017 9:53 AM EST EXAM: Limited duplex ultrasound of the liver INDICATION: ??Liver Transplant; postop day 1 COMPARISON: ??None TECHNIQUE: Grayscale imaging was performed for evaluation of the liver, gallbladder, common bile duct, pancreas, spleen, and kidneys; with limited grayscale and color Doppler evaluation of the upper abdominal aorta and inferior vena cava. Color and spectral (duplex) Doppler analysis of the hepatic vasculature was also performed. FINDINGS: The pancreas is obscured due to overlying bowel gas and not well visualized. Evaluation of the transplant liver is somewhat limited due to limited sonographic window. The transplant liver is normal in echogenicity and homogeneous in echotexture. There are no apparent focal hepatic masses. There is no evidence of intrahepatic biliary ductal dilation. The common bile duct is normal in caliber measuring approximately 5 mm. The gallbladder is surgically absent. No free fluid is seen in the abdomen. The spleen is borderline enlarged, measuring 13.7 cm in longest dimension. The left kidney is not visualized. The right kidney is normal in size and echogenicity without hydronephrosis, measuring 11.1 cm. The visualized portions of the IVC are normal in caliber and demonstrate internal flow. Abdominal aorta was not evaluated. Duplex evaluation of the hepatic vasculature demonstrates normal flow in the right, middle and left hepatic veins. The right, left and main portal vein demonstrate hepatopetal flow. There is mildly turbulent flow within the main portal vein, with velocities up to 115.9 cm/s. Right, main and left hepatic arteries demonstrate normal wave forms. The resistive indices in the main hepatic artery is 0.77, the right hepatic artery is 0.68- 0.83, and the left hepatic artery is 0.74-0.8. Procedure Note Carlos Eduardo Ross MD - 10/09/2017 EXAM: Ultrasound of the abdomen: 10/09/2017 9:53 AM EST EXAM: Limited duplex ultrasound of the liver INDICATION: Liver Transplant; postop day 1 COMPARISON: None TECHNIQUE: Grayscale imaging was performed for evaluation of the liver,gallbladder, common bile duct, pancreas, spleen, and kidneys; with limitedgrayscale and color Doppler evaluation of the upper abdominal aorta andinferior vena cava. Color and spectral (duplex) Doppler analysis of thehepatic vasculature was also performed. FINDINGS: The pancreas is obscured due to overlying bowel gas and not wellvisualized. Evaluation of the transplant liver is somewhat limited due to limitedsonographic window. The transplant liver is normal in echogenicity andhomogeneous in echotexture. There are no apparent focal hepatic masses.There is no evidence of intrahepatic biliary ductal dilation. The commonbile duct is normal in caliber measuring approximately 5 mm. The gallbladder is surgically absent. No free fluid is seen in theabdomen. The spleen is borderline enlarged, measuring 13.7 cm in longestdimension. The left kidney is not visualized. The right kidney is normal in size andechogenicity without hydronephrosis, measuring 11.1 cm. The visualized portions of the IVC are normal in caliber and demonstrateinternal flow. Abdominal aorta was not evaluated. Duplex evaluation of the hepatic vasculature demonstrates normal flow inthe right, middle and left hepatic veins. The right, left and main portalvein demonstrate hepatopetal flow. There is mildly turbulent flow withinthe main portal vein, with velocities up to 115.9 cm/s. Right, main and left hepatic arteries demonstrate normal wave forms. Theresistive indices in the main hepatic artery is 0.77, the right hepaticartery is 0.68- 0.83, and the left hepatic artery is 0.74-0.8. IMPRESSION: Abdomen: Normal sonographic appearance of the transplant liver. Liver duplex: Mildly turbulent flow within the main portal vein. Normal directional flow with resistive indices as detailed above. Report Verified by: CARLOS EDUARDO ROSS MD at 10/09/2017 12:11 PM EST Karishma Loaiza MD [facility] [place] ORDER[place]LES Yoselin l Result * (ABNORMAL) POC Glucose Monitoring Device (10/09/2017 11:04 AM EST) POC Glucose Monitoring Device 165(H) 70 - 100 mg/dL 10/09/2017 11:05 AM EST [facility] Blood specimen (specimen) 10/09/2017 11:04 AM EST 10/09/2017 11:05 AM EST us Tami Richardson MD POINT OF CARE TEST ORDERABLES F inal Result [facility] [address] [facility] * (ABNORMAL) POC Glucose Monitoring Device (10/09/2017 10:02 AM EST) POC Glucose Monitoring Device 163(H) 70 - 100 mg/dL 10/09/2017 10:06 AM EST [facility] Blood specimen (specimen) 10/09/2017 10:02 AM EST 10/09/2017 10:06 AM EST us Tami Richardson MD POINT OF CARE TEST ORDERABLES F inal Result Performing Organization Address [facility] Co de Phone Number [facility] [address] [facility] * (ABNORMAL) POC Glucose Monitoring Device (10/09/2017 9:19 AM EST) POC Glucose Monitoring Device 164(H) 70 - 100 mg/dL 10/09/2017 9:20 AM EST [facility] Blood specimen (specimen) 10/09/2017 9:19 AM EST 10/09/2017 9:20 AM EST us Tami Richardson MD POINT OF CARE TEST ORDERABLES F inal Result Performing Organization Address City/[facility] Co de Phone Number [facility] [address] [facility] * (ABNORMAL) POC Glucose Monitoring Device (10/09/2017 8:04 AM EST) POC Glucose Monitoring Device 181(H) 70 - 100 mg/dL 10/09/2017 8:05 AM EST [facility] Blood specimen (specimen) 10/09/2017 8:04 AM EST 10/09/2017 8:05 AM EST Tami Richardson MD POINT OF CARE TEST ORDERABLES F inal Result Performing Organization Address [facility]/ZIP Co de Phone Number [facility] [address] [facility] * RACHAEL RHYTHM STRIP - SCAN (10/09/2017 7:34 AM EST) us Scanning Uchhim SCAN DOCS - NO RESULTS Final Res ult * (ABNORMAL) POC Glucose Monitoring Device (10/09/2017 6:56 AM EST) POC Glucose Monitoring Device 189(H) 70 - 100 mg/dL 10/09/2017 6:57 AM EST [facility] Blood specimen (specimen) 10/09/2017 6:56 AM EST 10/09/2017 6:57 AM EST Tami Richardson MD POINT OF CARE TEST ORDERABLES F inal Result Performing Organization Address [facility] Co de Phone Number [facility] [address] [facility] * Magnesium (10/09/2017 6:42 AM EST) Magnesium 1.9 1.5 - 2.5 mg/dL 10/09/2017 8:22 AM EST [facility] Plasma specimen (specimen) 10/09/2017 6:42 AM EST 10/09/2017 6:54 AM EST Karishma Loaiza MD LAB BLOOD ORDERABLES F inal Result Performing Organization Address City/[facility]/ZIP Co de Phone Number [facility] [address] [facility] * (ABNORMAL) Hepatic Function Panel (10/09/2017 6:42 AM EST) Total Bilirubin 1.4 0.0 - 1.5 mg/dL 10/09/2017 8:22 AM EST [facility] Bilirubin, Direct 0.66(H) 0.00 - 0.40 mg/dL 10/09/2017 8:22 AM EST [facility] AST 632(H) 13 - 39 U/L 10/09/2017 8:22 AM EST [facility] ALT 654(H) 7 - 52 U/L 10/09/2017 8:22 AM EST [facility] Alkaline Phosphatase 61 36 - 125 U/L 10/09/2017 8:22 AM EST [facility] Total Protein 4.8(L) 6.4 - 8.9 g/dL 10/09/2017 8:22 AM EST [facility] Albumin 2.4(L) 3.5 - 5.7 g/dL 10/09/2017 8:22 AM EST [facility] Bilirubin, Indirect 0.74 0.00 - 1.10 mg/dL 10/09/2017 8:22 AM EST [facility] Plasma specimen (specimen) 10/09/2017 6:42 AM EST 10/09/2017 6:54 AM EST Karishma Loaiza MD LAB BLOOD ORDERABLES F inal Result [facility] [address] * (ABNORMAL) Renal Function Panel w/EGFR (10/09/2017 6:42 AM EST) Sodium 142 133 - 146 mmol/L 10/09/2017 8:08 AM EST [facility] Potassium 4.4 3.5 - 5.3 mmol/L 10/09/2017 8:08 AM EST [facility] Chloride 112(H) 98 - 110 mmol/L 10/09/2017 8:08 AM EST [facility] CO2 23 21 - 33 mmol/L 10/09/2017 8:08 AM EST [facility] Anion Gap 7 3 - 16 mmol/L 10/09/2017 8:08 AM EST [facility] BUN 37(H) 7 - 25 mg/dL 10/09/2017 8:08 AM EST [facility] Creatinine 2.04(H) 0.60 - 1.30 mg/dL 10/09/2017 8:08 AM EST [facility] Glucose 187(H) 70 - 100 mg/dL 10/09/2017 8:08 AM EST [facility] Calcium 9.3 8.6 - 10.3 mg/dL 10/09/2017 8:08 AM EST [facility] Phosphorus 4.6 2.1 - 4.7 mg/dL 10/09/2017 8:22 AM EST [facility] Albumin 2.4(L) 3.5 - 5.7 g/dL 10/09/2017 8:22 AM EST [facility] Osmolality, Calculated 308(H) 278 - 305 mOsm/kg 10/09/2017 8:08 AM EST [facility] eGFR AA CKD-EPI 45 See note. 8 8:08 AM EST [facility] eGFR NONAA CKD-EPI 39 See note. 10/09/2017 8:08 AM EST [facility] Plasma specimen (specimen) 10/09/2017 6:42 AM EST 10/09/2017 6:54 AM EST Narrative [facility] - 10/09/2017 8:22 AM EST As of 10/13/2015 the estimated GFR is [...] equation to estimate glomerular filtration rate. ??Jennifer Merchandise Flow Manager Med. 2009:150(9):604-12 Karishma Loaiza MD LAB BLOOD ORDERABLES F inal Result [facility] [address] [place] [address], [facility] [place] * (ABNORMAL) Protime-INR (10/09/2017 6:42 AM EST) Pathologist [facility] [place] Protime 17.4(H) 11.8 - 14.8 seconds 10/09/2017 7:28 AM EST [facility] Comment:Effective 07/12/2017 , the PT and PTMIX reference range has changed from 11.6 -14.4 sec to 11.8-14.8 sec. INR 1.4(H) 0.9 - 1.1 10/09/2017 7:28 AM EST [facility] Comment: RECOMMENDED THERAPEUTIC RANGES USING INR : ?Stable oral anticoagulant therapy: ? 2.0 - 3.0 ?Mechanical prosthetic heart valve: ? 2.5 - 3.5 ?Recurrent acute myocardial infarction: ? 2.5 - 3.5 Plasma specimen (specimen) 10/09/2017 6:42 AM EST 10/09/2017 6:54 AM EST Karishma Loaiza MD LAB BLOOD ORDERABLES F inal Result Performing Organization Address City/State/[facility] Co de Phone Number [facility] [address] * (ABNORMAL) CBC (10/09/2017 6:42 AM EST) [facility] WBC 11.5(H) 3.8 - 10.8 10E3/uL 10/09/2017 7:25 AM EST [facility] RBC 2.86(L) 4.20 - 5.80 10E6/uL 10/09/2017 7:25 AM EST [facility] Hemoglobin 10.4(L) 13.2 - 17.1 g/dL 10/09/2017 7:25 AM EST [facility] Hematocrit 29.5(L) 38.5 - 50.0 % 10/09/2017 7:25 AM EST [facility] MCV 103.0(H) 80.0 - 100.0 fL 10/09/2017 7:25 AM EST [facility] MCH 36.2(H) 27.0 - 33.0 pg 10/09/2017 7:25 AM EST [facility] MCHC 35.2 32.0 - 36.0 g/dL 10/09/2017 7:25 AM EST [facility] RDW 20.9(H) 11.0 - 15.0 % 10/09/2017 7:25 AM EST [facility] Platelets 81(L) 140 - 400 10E3/uL 10/09/2017 7:25 AM EST [facility] MPV 9.0 7.5 - 11.5 fL 10/09/2017 7:25 AM EST [facility] Whole blood specimen (specimen) 10/09/2017 6:42 AM EST 10/09/2017 6:54 AM EST Karishma Loaiza MD LAB BLOOD ORDERABLES F inal Result Performing Organization Address City/State/[facility] Co de Phone Number [facility] [address] * X-ray Portable Chest (10/09/2017 6:20 AM EST) Anatomical Region Laterality Modality Chest Radiographic Sobia ging 10/09/2017 5:53 AM EST Impressions 10/09/2017 6:43 AM EST IMPRESSION: 1. ??Low lung volumes with minimal bibasilar atelectasis. 2. ??Support devices as described above. I have personally reviewed the images and I agree with this report. Report Verified by: ANDERSON GARRISON M.D. at 10/09/2017 6:43 AM EST Narrative 10/09/2017 6:43 AM EST Exam: XR PORTABLE CHEST dated 10/09/2017 5:53 AM EST CLINICAL HISTORY: Line Placement; COMPARISON: 10/08/2017 FINDINGS : Right IJ approach pulmonary artery catheter tip projects over the left pulmonary artery. Endotracheal tube has tip projecting over the midthoracic trachea. Enteric tube tip projects over the stomach. The catheter is again noted projecting over the right upper abdomen The cardiomediastinal silhouette is unchanged. Lung volumes are low with minimal bibasilar airspace opacities, likely atelectasis. There is no pneumothorax or pleural effusion. Procedure Note Mercy Garrison MD - 10/09/2017 Exam: XR PORTABLE CHEST dated 10/09/2017 5:53 AM EST CLINICAL HISTORY: Line Placement; COMPARISON: 10/08/2017 FINDINGS : Right IJ approach pulmonary artery catheter tip projects over the leftpulmonary artery. Endotracheal tube has tip projecting over themidthoracic trachea. Enteric tube tip projects over the stomach. Thecatheter is again noted projecting over the right upper abdomen The cardiomediastinal silhouette is unchanged. Lung volumes are low withminimal bibasilar airspace opacities, likely atelectasis. There is nopneumothorax or pleural effusion. IMPRESSION: 1. Low lung volumes with minimal bibasilar atelectasis. 2. Support devices as described above. I have personally reviewed the images and I agree with this report. Report Verified by: ANDERSON GARRISON M.D. at 10/09/2017 6:43 AM EST Karishma Loaiza MD IM DIAGNOSTIC IMAGING ORDERABLES Final Result * (ABNORMAL) POC Glucose Monitoring Device (10/09/2017 6:05 AM EST) [facility] POC Glucose Monitoring Device 174(H) 70 - 100 mg/dL 10/09/2017 6:06 AM EST [facility] Blood specimen (specimen) 10/09/2017 6:05 AM EST 10/09/2017 6:06 AM EST Tami Richardson MD POINT OF CARE TEST ORDERABLES F inal Result [facility] [address] [place], [place] [address] * (ABNORMAL) Blood gas, arterial (10/09/2017 6:05 AM EST) Pathologist [facility] [place] pH, Arterial 7.39 7.35 - 7.45 10/09/2017 6:15 AM EST [facility] pCO2, Arterial 36 35 - 45 mm Hg 10/09/2017 6:15 AM EST [facility] pO2, Arterial 126(H) 80 - 100 mm Hg 10/09/2017 6:15 AM EST [facility] HCO3, Arterial 21(L) 22 - 26 mmol/L 10/09/2017 6:15 AM EST [facility] CO2 Content,Arteri al 22(L) 23 - 27 mmol/L 10/09/2017 6:15 AM EST [facility] Base Excess, Arterial -3.4(L) -2.0 - 3.0 mmol/L 10/09/2017 6:15 AM EST [facility] %HBO2, Arterial 97.3 95.0 - 98.0 % 10/09/2017 6:15 AM EST [facility] Carboxyhemoglo bin, Arterial 1.9 % 10/09/2017 6:15 AM [facility] Comment: CARBOXYHEMOGLOBIN (CO) REFERENCE RANGES: Non-Smokers: ??<2 % ? Smokers: ??<8 % TOXIC: >20 % Methemoglobin, Arterial 0.9 0.0 - 1.5 % 10/09/2017 6:15 AM [facility] Reduced hemoglobin, Arterial <2.4 0.0 - 5.0 % 10/09/2017 6:15 AM [facility] Arterial blood specimen (specimen) 10/09/2017 6:05 AM EST 10/09/2017 6:09 AM EST us Tami Richardson MD LAB BLOOD ORDERABLES Final Resu lt Performing Organization Address City/State/[facility] Co de Phone Number [facility] [address] * (ABNORMAL) POC Glucose Monitoring Device (10/09/2017 5:03 AM EST) POC Glucose Monitoring Device 176(H) 70 - 100 mg/dL 10/09/2017 5:04 AM EST [facility] Blood specimen (specimen) 10/09/2017 5:03 AM EST 10/09/2017 5:04 AM EST us Tami Richardson MD POINT OF CARE TEST ORDERABLES F inal Result Performing Organization Address [facility] Co de Phone Number [facility] [address] [facility] * (ABNORMAL) POC Glucose Monitoring Device (10/09/2017 4:02 AM EST) POC Glucose Monitoring Device 180(H) 70 - 100 mg/dL 10/09/2017 4:04 AM EST [facility] Blood specimen (specimen) 10/09/2017 4:02 AM EST 10/09/2017 4:04 AM EST us Tami Richardson MD POINT OF CARE TEST ORDERABLES F inal Result Performing Organization Address [facility] Co de Phone Number [facility] [address] [facility] * (ABNORMAL) POC Glucose Monitoring Device (10/09/2017 3:00 AM EST) POC Glucose Monitoring Device 203(H) 70 - 100 mg/dL 10/09/2017 3:02 AM EST [facility] Blood specimen (specimen) 10/09/2017 3:00 AM EST 10/09/2017 3:01 AM EST us Tami Richardson MD POINT OF CARE TEST ORDERABLES F inal Result Performing Organization Address [facility] Co de Phone Number [facility] [address] [facility] * (ABNORMAL) Blood Gas, Arterial (10/09/2017 2:24 AM EST) pH, Arterial 7.36 7.35 - 7.45 10/09/2017 2:48 AM EST [facility] pCO2, Arterial 38 35 - 45 mm Hg 10/09/2017 2:48 AM EST [facility] pO2, Arterial 136(H) 80 - 100 mm Hg 10/09/2017 2:48 AM EST [facility] HCO3, Arterial 22 22 - 26 mmol/L 10/09/2017 2:48 AM EST [facility] CO2 Content,Arteri al 23 23 - 27 mmol/L 10/09/2017 2:48 AM EST [facility] Base Excess, Arterial -3.3(L) -2.0 - 3.0 mmol/L 10/09/2017 2:48 AM EST [facility] %HBO2, Arterial 97.0 95.0 - 98.0 % 10/09/2017 2:48 AM EST [facility] Carboxyhemoglo bin, Arterial 1.8 % 10/09/2017 2:48 AM EST [facility] Comment: CARBOXYHEMOGLOBIN (CO) REFERENCE RANGES: Non-Smokers: ??<2 % ? Smokers: ??<8 % TOXIC: >20 % Methemoglobin, Arterial 1.2 0.0 - 1.5 % 10/09/2017 2:48 AM EST [facility] Reduced hemoglobin, Arterial <2.4 0.0 - 5.0 % 10/09/2017 2:48 AM EST [facility] Arterial blood specimen (specimen) 10/09/2017 2:24 AM EST 10/09/2017 2:45 AM EST Je Acevedo MD LAB BLOOD ORDERABLES Final Resul t [facility] [address] * (ABNORMAL) POC Glucose Monitoring Device (10/09/2017 2:06 AM EST) POC Glucose Monitoring Device 203(H) 70 - 100 mg/dL 10/09/2017 2:07 AM EST [facility] Blood specimen (specimen) 10/09/2017 2:06 AM EST 10/09/2017 2:07 AM EST Tami Richardson MD POINT OF CARE TEST ORDERABLES F inal Result Performing Organization Address City/State/[facility] Co de Phone Number [facility] [address] * Hemoglobin A1c (10/09/2017 1:13 AM EST) Hemoglobin A1C 5.4 4.8 - 6.4 % 10/09/2017 2:06 AM EST [facility] Comment: Hemoglobin (Hb) A1C Normal: ??4.8 - 5.6% Increased Risk for Diabetes: 5.7 - 6.4% Diagnostic Diabetes: ? >/= ?? 6.5% (Drawn on 2 separate occasions) Glycemic Control for Adults with Diabetes: <7.0% (DCCT / NGSP) Whole blood specimen (specimen) 10/09/2017 1:13 AM EST 10/09/2017 1:57 AM EST Karishma Loaiza MD LAB BLOOD ORDERABLES F inal Result Performing Organization Address City/[facility]/ZIP Co de Phone Number [facility] [address] [facility] * Magnesium (10/09/2017 1:13 AM EST) Magnesium 2.0 1.5 - 2.5 mg/dL 10/09/2017 2:23 AM EST [facility] Plasma specimen (specimen) 10/09/2017 1:13 AM EST 10/09/2017 1:21 AM EST Karishma Loaiza MD LAB BLOOD ORDERABLES F inal Result Performing Organization Address [facility] Co de Phone Number [facility] [address] [facility] * (ABNORMAL) Hepatic Function Panel (10/09/2017 1:13 AM EST) Total Bilirubin 1.6(H) 0.0 - 1.5 mg/dL 10/09/2017 2:23 AM EST [facility] Bilirubin, Direct 0.71(H) 0.00 - 0.40 mg/dL 10/09/2017 2:23 AM EST [facility] AST 974(H) 13 - 39 U/L 10/09/2017 2:23 AM EST [facility] ALT 748(H) 7 - 52 U/L 10/09/2017 2:23 AM EST [facility] Alkaline Phosphatase 63 36 - 125 U/L 10/09/2017 2:23 AM EST [facility] Total Protein 4.7(L) 6.4 - 8.9 g/dL 10/09/2017 2:23 AM EST [facility] Albumin 2.4(L) 3.5 - 5.7 g/dL 10/09/2017 2:23 AM EST [facility] Bilirubin, Indirect 0.89 0.00 - 1.10 mg/dL 10/09/2017 2:23 AM EST [facility] Plasma specimen (specimen) 10/09/2017 1:13 AM EST 10/09/2017 1:21 AM EST Karishma Loaiza MD LAB BLOOD ORDERABLES F inal Result [facility] [address] [id number], [facility] * (ABNORMAL) Renal Function Panel w/EGFR (10/09/2017 1:13 AM EST) Sodium 145 133 - 146 mmol/L 10/09/2017 2:23 AM EST [facility] Potassium 4.2 3.5 - 5.3 mmol/L 10/09/2017 2:23 AM EST [facility] Chloride 114(H) 98 - 110 mmol/L 10/09/2017 2:23 AM EST [facility] CO2 21 21 - 33 mmol/L 10/09/2017 2:23 AM EST [facility] Anion Gap 10 3 - 16 mmol/L 10/09/2017 2:23 AM EST [facility] BUN 34(H) 7 - 25 mg/dL 10/09/2017 2:23 AM EST [facility] Creatinine 1.87(H) 0.60 - 1.30 mg/dL 10/09/2017 2:23 AM EST [facility] Glucose 223(H) 70 - 100 mg/dL 10/09/2017 2:23 AM EST [facility] Calcium 9.3 8.6 - 10.3 mg/dL 10/09/2017 2:23 AM EST [facility] Phosphorus 3.8 2.1 - 4.7 mg/dL 10/09/2017 2:23 AM EST [facility] Albumin 2.4(L) 3.5 - 5.7 g/dL 10/09/2017 2:23 AM EST [facility] Osmolality, Calculated 315(H) 278 - 305 mOsm/kg 10/09/2017 2:23 AM EST [facility] eGFR AA CKD-EPI 50 See note. 8 2:23 AM EST [facility] eGFR NONAA CKD-EPI 43 See note. 10/09/2017 2:23 AM EST [facility] Plasma specimen (specimen) 10/09/2017 1:13 AM EST 10/09/2017 1:21 AM EST Narrative [facility] - 10/09/2017 2:23 AM EST As of 10/13/2015 the estimated GFR is calculated from serum creatinine using the Chronic Kidney Disease Epidemiology Collaboration (CKD-EPI) equation in patients 18 years and older. ??The reference range is >60 mL/min/1.73m2. ??eGFR values greater than 90 will be reported as >90mL/min/1.73m2. Reference: Isabel , Neftali LA, Marion CH, Ranlufo YL, Colten AF, 3rd, Quan HI, et. al. A new equation to estimate glomerular filtration rate. ??Jennifer [employer] Med. 2009:150(9):604-12 Karishma Loaiza MD LAB BLOOD ORDERABLES F inal Result [facility] [address] * (ABNORMAL) Protime-INR (10/09/2017 1:13 AM EST) Protime 18.8(H) 11.8 - 14.8 seconds 10/09/2017 1:44 AM EST [facility] Comment:Effective 07/12/2017 , the PT and PTMIX reference range has changed from 11.6 -14.4 sec to 11.8-14.8 sec. INR 1.6(H) 0.9 - 1.1 10/09/2017 1:44 AM EST [facility] Comment: RECOMMENDED THERAPEUTIC RANGES USING INR : ?Stable oral anticoagulant therapy: ? 2.0 - 3.0 ?Mechanical prosthetic heart valve: ? 2.5 - 3.5 ?Recurrent acute myocardial infarction: ? 2.5 - 3.5 Plasma specimen (specimen) 10/09/2017 1:13 AM EST 10/09/2017 1:21 AM EST Karishma Loaiza MD LAB BLOOD ORDERABLES F inal Result [facility] [address] [place] [address], [facility] * (ABNORMAL) CBC (10/09/2017 1:13 AM EST) WBC 8.6 3.8 - 10.8 10E3/uL 10/09/2017 1:28 AM EST [facility] RBC 2.87(L) 4.20 - 5.80 10E6/uL 10/09/2017 1:28 AM EST [facility] Hemoglobin 10.5(L) 13.2 - 17.1 g/dL 10/09/2017 1:28 AM EST [facility] Hematocrit 29.7(L) 38.5 - 50.0 % 10/09/2017 1:28 AM EST [facility] MCV 103.2(H) 80.0 - 100.0 fL 10/09/2017 1:28 AM EST [facility] MCH 36.5(H) 27.0 - 33.0 pg 10/09/2017 1:28 AM EST [facility] MCHC 35.3 32.0 - 36.0 g/dL 10/09/2017 1:28 AM EST [facility] RDW 20.8(H) 11.0 - 15.0 % 10/09/2017 1:28 AM EST [facility] Platelets 76(L) 140 - 400 10E3/uL 10/09/2017 1:28 AM [facility] MPV 8.7 7.5 - 11.5 fL 10/09/2017 1:28 AM EST [facility] Whole blood specimen (specimen) 10/09/2017 1:13 AM EST 10/09/2017 1:21 AM EST Karishma Loaiza MD LAB BLOOD ORDERABLES F inal Result [facility] [address] [facility] * (ABNORMAL) POC Glucose Monitoring Device (10/09/2017 1:11 AM EST) POC Glucose Monitoring Device 216(H) 70 - 100 mg/dL 10/09/2017 1:12 AM EST [facility] Blood specimen (specimen) 10/09/2017 1:11 AM EST 10/09/2017 1:12 AM EST Tami Richardson MD POINT OF CARE TEST ORDERABLES F inal Result Performing Organization Address City/[facility]/ZIP Co de Phone Number [facility] [address] [facility] * (ABNORMAL) POC Glucose Monitoring Device (10/09/2017 12:10 AM EST) POC Glucose Monitoring Device 233(H) 70 - 100 mg/dL 10/09/2017 12:11 AM EST [facility] Blood specimen (specimen) 10/09/2017 12:10 AM EST 10/09/2017 12:11 AM EST Tami Richardson MD POINT OF CARE TEST ORDERABLES F inal Result [facility] [address] [facility] * (ABNORMAL) POC Glucose Monitoring Device (10/08/2017 11:11 PM EST) POC Glucose Monitoring Device 254(H) 70 - 100 mg/dL 10/08/2017 11:13 PM EST [facility] Blood specimen (specimen) 10/08/2017 11:11 PM EST 10/08/2017 11:13 PM EST us Tami Richardson MD POINT OF CARE TEST ORDERABLES F inal Result Performing Organization Address [facility]/ZIP Co de Phone Number [facility] [address] [facility] * (ABNORMAL) POC Glucose Monitoring Device (10/08/2017 10:03 PM EST) POC Glucose Monitoring Device 227(H) 70 - 100 mg/dL 10/08/2017 10:05 PM EST [facility] Blood specimen (specimen) 10/08/2017 10:03 PM EST 10/08/2017 10:05 PM EST Result Counts Include [facility] us Tami Richardson MD POINT OF CARE TEST ORDERABLES F inal Result Performing Organization Address [facility] Co de Phone Number [facility] [address] [place] [address]. [address] * (ABNORMAL) POC Glucose Monitoring Device (10/08/2017 9:03 PM EST) POC Glucose Monitoring Device 233(H) 70 - 100 mg/dL 10/08/2017 9:05 PM EST [facility] Blood specimen (specimen) 10/08/2017 9:03 PM EST 10/08/2017 9:05 PM EST Result [facility] Tami Richardson MD POINT OF CARE TEST ORDERABLES F inal Result Performing Organization Address [facility] Co de Phone Number [facility] [address] [facility] * Magnesium (10/08/2017 8:06 PM EST) Magnesium 1.5 1.5 - 2.5 mg/dL 10/08/2017 8:55 PM EST [facility] Plasma specimen (specimen) 10/08/2017 8:06 PM EST 10/08/2017 8:14 PM EST Karishma Loaiza MD LAB BLOOD ORDERABLES F inal Result [facility] [address] * (ABNORMAL) Hepatic Function Panel (10/08/2017 8:06 PM EST) Total Bilirubin 2.5(H) 0.0 - 1.5 mg/dL 10/08/2017 8:55 PM EST [facility] Bilirubin, Direct 1.26(H) 0.00 - 0.40 mg/dL 10/08/2017 8:55 PM EST [facility] AST 1,541(H) 13 - 39 U/L 10/08/2017 8:55 PM EST [facility] ALT 863(H) 7 - 52 U/L 10/08/2017 8:55 PM EST [facility] Alkaline Phosphatase 76 36 - 125 U/L 10/08/2017 8:55 PM EST [facility] Total Protein 5.1(L) 6.4 - 8.9 g/dL 10/08/2017 8:55 PM EST [facility] Albumin 2.6(L) 3.5 - 5.7 g/dL 10/08/2017 8:55 PM EST [facility] Bilirubin, Indirect 1.24(H) 0.00 - 1.10 mg/dL 10/08/2017 8:55 PM EST [facility] Plasma specimen (specimen) 10/08/2017 8:06 PM EST 10/08/2017 8:14 PM EST Karishma Loaiza MD LAB BLOOD ORDERABLES F inal Result [facility] [address] * (ABNORMAL) Renal Function Panel w/EGFR (10/08/2017 8:06 PM EST) Sodium 145 133 - 146 mmol/L 10/08/2017 8:55 PM EST [facility] Potassium 4.1 3.5 - 5.3 mmol/L 10/08/2017 8:55 PM EST [facility] Chloride 115(H) 98 - 110 mmol/L 10/08/2017 8:55 PM EST [facility] CO2 22 21 - 33 mmol/L 10/08/2017 8:55 PM [facility] Anion Gap 8 3 - 16 mmol/L 10/08/2017 8:55 PM [facility] BUN 31(H) 7 - 25 mg/dL 10/08/2017 8:55 PM [facility] Creatinine 1.81(H) 0.60 - 1.30 mg/dL 10/08/2017 8:55 PM [facility] Glucose 242(H) 70 - 100 mg/dL 10/08/2017 8:55 PM [facility] Calcium 9.7 8.6 - 10.3 mg/dL 10/08/2017 8:55 PM [facility] Phosphorus 3.8 2.1 - 4.7 mg/dL 10/08/2017 8:55 PM [facility] Albumin 2.6(L) 3.5 - 5.7 g/dL 10/08/2017 8:55 PM [facility] Osmolality, Calculated 315(H) 278 - 305 mOsm/kg 10/08/2017 8:55 PM [facility] eGFR AA CKD-EPI 52 See note. 8 8:55 PM [facility] eGFR NONAA CKD-EPI 45 See note. 10/08/2017 8:55 PM [facility] Plasma specimen (specimen) 10/08/2017 8:06 PM EST 10/08/2017 8:14 PM EST [facility] - 10/08/2017 8:55 PM EST As of 10/13/2015 the estimated GFR is [...] equation to estimate glomerular filtration rate. ??Jennifer Merch[employer] Flow Manager Med. 2009:150(9):604-12 Karishma Loaiza MD LAB BLOOD ORDERABLES F inal Result [facility] [address] * (ABNORMAL) Protime-INR (10/08/2017 8:06 PM EST) Protime 19.4(H) 11.8 - 14.8 seconds 10/08/2017 9:00 PM EST [facility] Comment:Effective 07/12/2017 , the PT and PTMIX reference range has changed from 11.6 -14.4 sec to 11.8-14.8 sec. INR 1.6(H) 0.9 - 1.1 10/08/2017 9:00 PM EST [facility] Comment: RECOMMENDED THERAPEUTIC RANGES USING INR : ?Stable oral anticoagulant therapy: ? 2.0 - 3.0 ?Mechanical prosthetic heart valve: ? 2.5 - 3.5 ?Recurrent acute myocardial infarction: ? 2.5 - 3.5 Plasma specimen (specimen) 10/08/2017 8:06 PM EST 10/08/2017 8:14 PM EST Karishma Loaiza MD LAB BLOOD ORDERABLES F inal Result [facility] [address] [facility] * (ABNORMAL) CBC (10/08/2017 8:06 PM EST) WBC 7.6 3.8 - 10.8 10E3/uL 10/08/2017 8:22 PM EST [facility] RBC 2.98(L) 4.20 - 5.80 10E6/uL 10/08/2017 8:22 PM EST [facility] Hemoglobin 11.1(L) 13.2 - 17.1 g/dL 10/08/2017 8:22 PM [facility] Hematocrit 30.5(L) 38.5 - 50.0 % 10/08/2017 8:22 PM EST [facility] MCV 102.3(H) 80.0 - 100.0 fL 10/08/2017 8:22 PM EST [facility] MCH 37.1(H) 27.0 - 33.0 pg 10/08/2017 8:22 PM EST [facility] MCHC 36.3(H) 32.0 - 36.0 g/dL 10/08/2017 8:22 PM EST [facility] RDW 21.2(H) 11.0 - 15.0 % 10/08/2017 8:22 PM EST [facility] Platelets 80(L) 140 - 400 10E3/uL 10/08/2017 8:22 PM [facility] MPV 8.5 7.5 - 11.5 fL 10/08/2017 8:22 PM [facility] Whole blood specimen (specimen) 10/08/2017 8:06 PM EST 10/08/2017 8:14 PM EST Karishma Loaiza MD LAB BLOOD ORDERABLES F inal Result [facility] [address] * (ABNORMAL) POC Glucose Monitoring Device (10/08/2017 8:05 PM EST) [facility] POC Glucose Monitoring Device 227(H) 70 - 100 mg/dL 10/08/2017 8:06 PM EST [facility] Blood specimen (specimen) 10/08/2017 8:05 PM EST 10/08/2017 8:06 PM EST Tami Richardson MD POINT OF CARE TEST ORDERABLES F inal Result [facility] [address] * (ABNORMAL) POC Glucose Monitoring Device (10/08/2017 7:01 PM EST) POC Glucose Monitoring Device 241(H) 70 - 100 mg/dL 10/08/2017 7:02 PM EST [facility] Blood specimen (specimen) 10/08/2017 7:01 PM EST 10/08/2017 7:02 PM EST Tami Richardson MD POINT OF CARE TEST ORDERABLES F inal Result [facility] [address] [facility] * (ABNORMAL) POC Glucose Monitoring Device (10/08/2017 6:08 PM EST) POC Glucose Monitoring Device 260(H) 70 - 100 mg/dL 10/08/2017 6:09 PM EST [facility] Blood specimen (specimen) 10/08/2017 6:08 PM EST 10/08/2017 6:09 PM EST Tami Richardson MD POINT OF CARE TEST ORDERABLES F inal Result Performing Organization Address [facility] Co de Phone Number [facility] [address] [facility] * (ABNORMAL) POC Glucose Monitoring Device (10/08/2017 5:18 PM EST) POC Glucose Monitoring Device 277(H) 70 - 100 mg/dL 10/08/2017 5:38 PM EST [facility] Blood specimen (specimen) 10/08/2017 5:18 PM EST 10/08/2017 5:38 PM EST us Tami Richardson MD POINT OF CARE TEST ORDERABLES F inal Result Performing Organization Address City/[facility] Co de Phone Number [facility] [address] [facility] * (ABNORMAL) POC Glucose Monitoring Device (10/08/2017 4:07 PM EST) POC Glucose Monitoring Device 258(H) 70 - 100 mg/dL 10/08/2017 4:27 PM EST [facility] Blood specimen (specimen) 10/08/2017 4:07 PM EST 10/08/2017 4:27 PM EST Tami Richardson MD POINT OF CARE TEST ORDERABLES F inal Result Performing Organization Address City/[facility]/ZIP Co de Phone Number [facility] [address] [facility] * (ABNORMAL) Triglycerides (10/08/2017 3:06 PM EST) Triglycerides 187(H) 10 - 149 mg/dL 10/08/2017 3:48 PM EST [facility] Plasma specimen (specimen) 10/08/2017 3:06 PM EST 10/08/2017 3:18 PM EST Narrative [facility] - 10/08/2017 3:48 PM EST If on Propofol, draw triglycerides now and every 72 hours until medication is discontinued Adilene Carnes MD LAB BLOOD ORDERABLES Final Result Performing Organization Address [facility] Co de Phone Number [facility] [address] [facility] * (ABNORMAL) POC Glucose Monitoring Device (10/08/2017 2:58 PM EST) POC Glucose Monitoring Device 276(H) 70 - 100 mg/dL 10/08/2017 3:18 PM EST [facility] LAB Blood specimen (specimen) 10/08/2017 2:58 PM EST 10/08/2017 3:17 PM EST Tami Richardson MD POINT OF CARE TEST ORDERABLES F inal Result Performing Organization Address City/[facility]/ZIP Co de Phone Number [facility] [address] * X-ray Portable Chest (10/08/2017 2:13 PM EST) Anatomical Region Laterality Modality Chest Radiographic Sobia ging 10/08/2017 2:04 PM EST Impressions 10/08/2017 2:36 PM EST IMPRESSION: 1. ??ET tube in appropriate position. 2. ??PA catheter overlies the main pulmonary artery. 3. ??No airspace consolidation. Approved by Anton Young on 10/08/2017 2:30 PM EST I have personally reviewed the images and I agree with this report. Report Verified by: Jack Vargas at 10/08/2017 2:36 PM EST Narrative 10/08/2017 2:36 PM EST EXAMINATION: XR PORTABLE CHEST, dated 10/08/2017 2:04 PM EST HISTORY: Line Placement; TECHNIQUE: Portable view of the chest is provided for evaluation COMPARISON: Chest radiograph dated 10/08/2017 FINDINGS: Medical Devices: * ??Interval intubation with ET tube tip approximately 4 cm above the tara. * ??PA catheter tip overlies the main pulmonary artery. * ??Enteric tube tip overlies the gastric fundus. * ??Catheter overlies the right upper abdomen/right lung base. Heart and Mediastinum: Cardiac silhouette is within normal limits. The mediastinum has normal contours. Lungs and Pleura: Low lung volumes. No focal airspace consolidation.. There are no pleural effusions. No pneumothorax is identified. Bones and Soft Tissues: No acute osseous abnormalities. Procedure Note Jack Vargas MD - 10/08/2017 EXAMINATION: XR PORTABLE CHEST, dated 10/08/2017 2:04 PM EST HISTORY: Line Placement; TECHNIQUE: Portable view of the chest is provided for evaluation COMPARISON: Chest radiograph dated 10/08/2017 FINDINGS: Medical Devices: * Interval intubation with ET tube tip approximately 4 cm above thecarina. * PA catheter tip overlies the main pulmonary artery. * Enteric tube tip overlies the gastric fundus. * Catheter overlies the right upper abdomen/right lung base. Heart and Mediastinum: Cardiac silhouette is within normal limits. Themediastinum has normal contours. Lungs and Pleura: Low lung volumes. No focal airspace consolidation..There are no pleural effusions. No pneumothorax is identified. Bones and Soft Tissues: No acute osseous abnormalities. IMPRESSION: 1. ET tube in appropriate position. 2. PA catheter overlies the main pulmonary artery. 3. No airspace consolidation. Approved by Anton Young on 10/08/2017 2:30 PM EST I have personally reviewed the images and I agree with this report. Report Verified by: Jack Vargas at 10/08/2017 2:36 PM EST Karishma Loaiza MD IMG DIAGNOSTIC IMAGING ORDERABLES Final Result * (ABNORMAL) Hepatic Function Panel (10/08/2017 1:53 PM EST) Total Bilirubin 5.0(H) 0.0 - 1.5 mg/dL 10/08/2017 3:04 PM EST [facility] Bilirubin, Direct 2.91(H) 0.00 - 0.40 mg/dL 10/08/2017 3:04 PM EST [facility] AST 1,721(H) 13 - 39 U/L 10/08/2017 3:04 PM EST [facility] ALT 856(H) 7 - 52 U/L 10/08/2017 3:04 PM EST [facility] Alkaline Phosphatase 81 36 - 125 U/L 10/08/2017 3:04 PM EST [facility] Total Protein 4.7(L) 6.4 - 8.9 g/dL 10/08/2017 3:04 PM EST [facility] Albumin 2.4(L) 3.5 - 5.7 g/dL 10/08/2017 3:04 PM EST [facility] Bilirubin, Indirect 2.09(H) 0.00 - 1.10 mg/dL 10/08/2017 3:04 PM EST [facility] Plasma specimen (specimen) 10/08/2017 1:53 PM EST 10/08/2017 2:22 PM EST us Tami Richardson MD LAB BLOOD ORDERABLES Final Resu lt [facility] [address] [place] [address], [facility] [place] * Lactic acid, ABG (10/08/2017 1:53 PM EST) Lactate, Art 1.4 0.5 - 1.6 mmol/L 10/08/2017 2:05 PM EST [facility] Arterial blood specimen (specimen) 10/08/2017 1:53 PM EST 10/08/2017 2:04 PM EST Adilene Carnes MD LAB BLOOD ORDERABLES Final Result Performing Organization Address [facility] Co de Phone Number [facility] [address] * (ABNORMAL) Calcium Ionized, Whole Blood (10/08/2017 1:53 PM EST) Free Calcium, WB 5.90(H) 4.50 - 5.30 mg/dL 10/08/2017 2:05 PM EST [facility] Arterial blood specimen (specimen) 10/08/2017 1:53 PM EST 10/08/2017 2:04 PM EST Adilene Carnes MD LAB BLOOD ORDERABLES Final Result Performing Organization Address [facility] Co de Phone Number [facility] [address] * (ABNORMAL) Blood gas, arterial (10/08/2017 1:53 PM EST) pH, Arterial 7.34(L) 7.35 - 7.45 10/08/2017 2:05 PM EST [facility] pCO2, Arterial 44 35 - 45 mm Hg 10/08/2017 2:05 PM EST [facility] pO2, Arterial 148(H) 80 - 100 mm Hg 10/08/2017 2:05 PM EST [facility] HCO3, Arterial 24 22 - 26 mmol/L 10/08/2017 2:05 PM EST [facility] CO2 Content,Arteri al 25 23 - 27 mmol/L 10/08/2017 2:05 PM EST [facility] Base Excess, Arterial -2.1(L) -2.0 - 3.0 mmol/L 10/08/2017 2:05 PM [facility] %HBO2, Arterial 97.1 95.0 - 98.0 % 10/08/2017 2:05 PM EST [facility] Carboxyhemoglo bin, Arterial 1.8 % 10/08/2017 2:05 PM EST [facility] Comment: CARBOXYHEMOGLOBIN (CO) REFERENCE RANGES: Non-Smokers: ??<2 % ? Smokers: ??<8 % TOXIC: >20 % Methemoglobin, Arterial 0.9 0.0 - 1.5 % 10/08/2017 2:05 PM EST [facility] Reduced hemoglobin, Arterial <2.4 0.0 - 5.0 % 10/08/2017 2:05 PM EST [facility] Arterial blood specimen (specimen) 10/08/2017 1:53 PM EST 10/08/2017 2:04 PM EST Adilene Carnes MD LAB BLOOD ORDERABLES Final Result Performing Organization Address [facility] Co de Phone Number [facility] [address] * (ABNORMAL) Rapid TEG (10/08/2017 1:53 PM EST) [facility] Signature TEG ACT 121.0(H) 86.0 - 118.0 seconds 10/08/2017 4:06 PM EST [facility] Comment:The TEG ACT test par ameter is approved to monitor heparin in adult patients. It has not been approved by the FDA for other uses. TEG R Time 45.0(H) 22 - 44 seconds 10/08/2017 4:06 PM EST [facility] TEG Time 120.0 34 - 138 seconds 10/08/2017 4:06 PM [facility] TEG Angle 72.3 64 - 80 degrees 10/08/2017 4:06 PM EST [facility] TEG Max Amplitude 54.1 52 - 71 mm 10/08/2017 4:06 PM EST [facility] TEG Lysis 30 0.0 % 10/08/2017 4:06 PM EST [facility] Whole blood specimen (specimen) 10/08/2017 1:53 PM EST 10/08/2017 2:16 PM EST Adilene Carnes MD LAB BLOOD ORDERABLES Final Result Performing Organization Address [facility] Co de Phone Number [facility] [address] [facility]. [address] * (ABNORMAL) Fibrinogen (10/08/2017 1:53 PM EST) Fibrinogen 192(L) 218 - 406 mg/dL 10/08/2017 3:22 PM EST [facility] Plasma specimen (specimen) 10/08/2017 1:53 PM EST 10/08/2017 2:16 PM EST Karishma Loaiza MD LAB BLOOD ORDERABLES F inal Result Performing Organization Address [facility] Co de Phone Number [facility] [address] * (ABNORMAL) Protime-INR (10/08/2017 1:53 PM EST) Protime 21.0(H) 11.8 - 14.8 seconds 10/08/2017 3:22 PM EST [facility] Comment:Effective 07/12/2017 , the PT and PTMIX reference range has changed from 11.6 -14.4 sec to 11.8-14.8 sec. INR 1.8(H) 0.9 - 1.1 10/08/2017 3:22 PM EST [facility] Comment: RECOMMENDED THERAPEUTIC RANGES USING INR : ?Stable oral anticoagulant therapy: ? 2.0 - 3.0 ?Mechanical prosthetic heart valve: ? 2.5 - 3.5 ?Recurrent acute myocardial infarction: ? 2.5 - 3.5 Plasma specimen (specimen) 10/08/2017 1:53 PM EST 10/08/2017 2:16 PM EST Karishma Loaiza MD LAB BLOOD ORDERABLES F inal Result [facility] [address] [employer] [facility]. [address] * (ABNORMAL) CBC (10/08/2017 1:53 PM EST) WBC 3.6(L) 3.8 - 10.8 10E3/uL 10/08/2017 2:25 PM EST [facility] RBC 2.77(L) 4.20 - 5.80 10E6/uL 10/08/2017 2:25 PM EST [facility] Hemoglobin 10.2(L) 13.2 - 17.1 g/dL 10/08/2017 2:25 PM EST [facility] Hematocrit 28.6(L) 38.5 - 50.0 % 10/08/2017 2:25 PM EST [facility] MCV 103.2(H) 80.0 - 100.0 fL 10/08/2017 2:25 PM EST [facility] MCH 36.7(H) 27.0 - 33.0 pg 10/08/2017 2:25 PM EST [facility] MCHC 35.6 32.0 - 36.0 g/dL 10/08/2017 2:25 PM EST [facility] RDW 20.6(H) 11.0 - 15.0 % 10/08/2017 2:25 PM EST [facility] Platelets 86(L) 140 - 400 10E3/uL 10/08/2017 2:25 PM EST [facility] MPV 8.1 7.5 - 11.5 fL 10/08/2017 2:25 PM EST [facility] Whole blood specimen (specimen) 10/08/2017 1:53 PM EST 10/08/2017 2:16 PM EST Karishma Loaiza MD LAB BLOOD ORDERABLES F inal Result [facility] [address] * Phosphorus (10/08/2017 1:53 PM EST) Phosphorus 4.5 2.1 - 4.7 mg/dL 10/08/2017 3:04 PM EST [facility] Plasma specimen (specimen) 10/08/2017 1:53 PM EST 10/08/2017 2:24 PM EST Karishma Loaiza MD LAB BLOOD ORDERABLES F inal Result Performing Organization Address City/[facility]/ZIP Co de Phone Number [facility] [address] * Magnesium (10/08/2017 1:53 PM EST) Magnesium 1.7 1.5 - 2.5 mg/dL 10/08/2017 3:04 PM EST [facility] Plasma specimen (specimen) 10/08/2017 1:53 PM EST 10/08/2017 2:24 PM EST Karishma Loaiza MD LAB BLOOD ORDERABLES F inal Result Performing Organization Address [facility] Co de Phone Number [facility] [address] * (ABNORMAL) Comprehensive metabolic panel (10/08/2017 1:53 PM EST) Sodium 145 133 - 146 mmol/L 10/08/2017 3:04 PM EST [facility] Potassium 4.7 3.5 - 5.3 mmol/L 10/08/2017 3:04 PM [facility] Chloride 113(H) 98 - 110 mmol/L 10/08/2017 3:04 PM EST [facility] CO2 21 21 - 33 mmol/L 10/08/2017 3:04 PM [facility] Anion Gap 11 3 - 16 mmol/L 10/08/2017 3:04 PM EST [facility] BUN 25 7 - 25 mg/dL 10/08/2017 3:04 PM [facility] Creatinine 1.58(H) 0.60 - 1.30 mg/dL 10/08/2017 3:04 PM [facility] Glucose 252(H) 70 - 100 mg/dL 10/08/2017 3:04 PM EST [facility] Calcium 9.6 8.6 - 10.3 mg/dL 10/08/2017 3:04 PM [facility] Total Bilirubin 5.0(H) 0.0 - 1.5 mg/dL 10/08/2017 3:04 PM EST [facility] AST 1,721(H) 13 - 39 U/L 10/08/2017 3:04 PM [facility] ALT 856(H) 7 - 52 U/L 10/08/2017 3:04 PM [facility] Alkaline Phosphatase 81 36 - 125 U/L 10/08/2017 3:04 PM [facility] Total Protein 4.7(L) 6.4 - 8.9 g/dL 10/08/2017 3:04 PM [facility] Albumin 2.4(L) 3.5 - 5.7 g/dL 10/08/2017 3:04 PM [facility] Osmolality, Calculated 313(H) 278 - 305 mOsm/kg 10/08/2017 3:04 PM [facility] eGFR AA CKD-EPI 61 See note. 8 3:04 PM [facility] eGFR NONAA CKD-EPI 53 See note. 10/08/2017 3:04 PM [facility] Plasma specimen (specimen) 10/08/2017 1:53 PM EST 10/08/2017 2:24 PM EST Narrative [facility] - 10/08/2017 3:04 PM EST As of 10/13/2015 the estimated GFR is [...] equation to estimate glomerular filtration rate. ??Jennifer [employer] Med. 2009:150(9):604-12 Karishma Loaiza MD LAB BLOOD ORDERABLES F inal Result [facility] [address] * (ABNORMAL) POC Glucose Monitoring Device (10/08/2017 1:52 PM EST) POC Glucose Monitoring Device 251(H) 70 - 100 mg/dL 10/08/2017 2:04 PM EST [facility] Blood specimen (specimen) 10/08/2017 1:52 PM EST 10/08/2017 2:04 PM EST Tami Richardson MD POINT OF CARE TEST ORDERABLES F inal Result [facility] [address] [employer] [facility]. [address] * POC Sample Type (10/08/2017 12:32 PM EST) [facility] POC Sample Type Arterial 10/08/2017 12:36 PM EST [facility] Arterial blood specimen (specimen) 10/08/2017 12:32 PM EST 10/08/2017 12:36 PM EST Tami Richardson MD POINT OF CARE TEST ORDERABLES F inal Result Performing Organization Address City/[facility] Co de Phone Number [facility] [address] * POC Anion Gap (10/08/2017 12:32 PM EST) Pathologist [facility] [place] POC Anion Gap, Arterial 9 3 - 16 mmol/L 10/08/2017 12:36 PM EST [facility] Arterial blood specimen (specimen) 10/08/2017 12:32 PM EST 10/08/2017 12:36 PM EST Tami Richardson MD POINT OF CARE TEST ORDERABLES F inal Result [facility] [address] * POC TCO2 (10/08/2017 12:32 PM EST) Pathologist [facility] POC TCO2, Arterial 25 23 - 27 mmol/L 10/08/2017 12:36 PM EST [facility] Arterial blood specimen (specimen) 10/08/2017 12:32 PM EST 10/08/2017 12:36 PM EST Tami Richardson MD POINT OF CARE TEST ORDERABLES F inal Result [facility] [address] [place] [address]. [address] * (ABNORMAL) POC O2 SAT (10/08/2017 12:32 PM EST) POC O2 Saturation, Arterial 100(H) 95 - 98 % 10/08/2017 12:36 PM EST [facility] Arterial blood specimen (specimen) 10/08/2017 12:32 PM EST 10/08/2017 12:36 PM EST Result [facility] Tami Richardson MD POINT OF CARE TEST ORDERABLES F inal Result Performing Organization Address City/[facility]/ZIP Co de Phone Number [facility] [address] [place] [address]. [address] * POC Base Excess (10/08/2017 12:32 PM EST) POC Base Excess, Arterial -2 -2 - 3 mmol/L 10/08/2017 12:36 PM EST [facility] Arterial blood specimen (specimen) 10/08/2017 12:32 PM EST 10/08/2017 12:36 PM EST Result [facility] Tami Richardson MD POINT OF CARE TEST ORDERABLES F inal Result [facility] [address] [place] [address]. [address] * POC HCO3 (10/08/2017 12:32 PM EST) POC HCO3, Arterial 24 22 - 26 mmol/L 10/08/2017 12:36 PM EST [facility] Arterial blood specimen (specimen) 10/08/2017 12:32 PM EST 10/08/2017 12:36 PM EST Tami Richardson MD POINT OF CARE TEST ORDERABLES F inal Result [facility] [address] * (ABNORMAL) POC Chloride (10/08/2017 12:32 PM EST) POC Chloride 114(H) 98 - 110 mmol/L 10/08/2017 12:36 PM EST [facility] Arterial blood specimen (specimen) 10/08/2017 12:32 PM EST 10/08/2017 12:36 PM EST Tami Richardson MD POINT OF CARE TEST ORDERABLES F inal Result Performing Organization Address [facility] Co de Phone Number [facility] [address] * POC Lactate (10/08/2017 12:32 PM EST) POC Lactate 1.63 0.50 - 2.20 mmol/L 10/08/2017 12:36 PM EST [facility] Arterial blood specimen (specimen) 10/08/2017 12:32 PM EST 10/08/2017 12:36 PM EST Result [facility] Tami Richardson MD POINT OF CARE TEST ORDERABLES F inal Result Performing Organization Address City/[facility]/ZIP Co de Phone Number [facility] [address] * (ABNORMAL) POC Glucose (10/08/2017 12:32 PM EST) POC Glucose, Arterial 225(H) 70 - 100 mg/dL 10/08/2017 12:36 PM EST [facility] Arterial blood specimen (specimen) 10/08/2017 12:32 PM EST 10/08/2017 12:36 PM EST Tami Richardson MD POINT OF CARE TEST ORDERABLES F inal Result [facility] [address] * (ABNORMAL) POC Ionized Calcium (10/08/2017 12:32 PM EST) POC Ionized Calcium 6.30(HH) 4.50 - 5.30 mg/dL 10/08/2017 12:36 PM EST [facility] Arterial blood specimen (specimen) 10/08/2017 12:32 PM EST 10/08/2017 12:36 PM EST Tami Richardson MD POINT OF CARE TEST ORDERABLES F inal Result [facility] [address] [place] [address]. [address] * POC Potassium (10/08/2017 12:32 PM EST) Pathologist [facility] POC Potassium 4.9 3.5 - 5.3 mmol/L 10/08/2017 12:36 PM EST [facility] Arterial blood specimen (specimen) 10/08/2017 12:32 PM EST 10/08/2017 12:36 PM EST Tami Richardson MD POINT OF CARE TEST ORDERABLES F inal Result Performing Organization Address City/[facility]/ZIP Co de Phone Number [facility] [address] [place] [address]. [address] * (ABNORMAL) POC Sodium (10/08/2017 12:32 PM EST) Pathologist [facility] POC Sodium 147(H) 136 - 146 mmol/L 10/08/2017 12:36 PM EST [facility] Arterial blood specimen (specimen) 10/08/2017 12:32 PM EST 10/08/2017 12:36 PM EST Tami Richardson MD POINT OF CARE TEST ORDERABLES F inal Result [facility] [address] [place] [address]. [address] * (ABNORMAL) POC PO2 (10/08/2017 12:32 PM EST) POC pO2, Arterial 363(H) 80 - 100 mm Hg 10/08/2017 12:36 PM EST [facility] Arterial blood specimen (specimen) 10/08/2017 12:32 PM EST 10/08/2017 12:36 PM EST Tami Richardson MD POINT OF CARE TEST ORDERABLES F inal Result [facility] [address] [employer] [facility] [employer] [facility]. [address] * POC PCO2 (10/08/2017 12:32 PM EST) POC pCO2, Arterial 45 35 - 45 mm Hg 10/08/2017 12:36 PM EST [facility] Arterial blood specimen (specimen) 10/08/2017 12:32 PM EST 10/08/2017 12:36 PM EST Tami Richardson MD POINT OF CARE TEST ORDERABLES F inal Result Performing Organization Address [facility] Co de Phone Number [facility] [address] [employer] [facility] [employer] [facility]. [address] * (ABNORMAL) POC pH (10/08/2017 12:32 PM EST) POC pH, Arterial 7.33(L) 7.35 - 7.45 10/08/2017 12:36 PM EST [facility] Arterial blood specimen (specimen) 10/08/2017 12:32 PM EST 10/08/2017 12:36 PM EST Tami Richardson MD POINT OF CARE TEST ORDERABLES F inal Result Performing Organization Address City/[facility] Co de Phone Number [facility] [address] [employer] [facility] [employer] [facility] [employer] [facility]. [address] * (ABNORMAL) POC Hemocue Hemoglobin (10/08/2017 12:26 PM EST) Hemoglobin, Hemocue 9.5(L) 13.2 - 17.1 g/dL 10/08/2017 12:38 PM EST [facility] Whole blood specimen (specimen) 10/08/2017 12:26 PM EST 10/08/2017 12:38 PM EST Tami Richardson MD POINT OF CARE TEST ORDERABLES F inal Result Performing Organization Address [facility] Co de Phone Number [facility] [address] [facility]. [address] * (ABNORMAL) POC INR (10/08/2017 12:22 PM EST) Prothrombin Time INR, POC 1.9(H) 0.8 - 1.4 10/11/2017 6:44 AM EST [facility] Comment: Test results may vary using different testing platforms. Serial result monitoring should be performed using the same methodology. RECOMMENDED THERAPEUTIC RANGES USING INR : ?Stable oral anticoagulant therapy: ? 2.0 - 3.0 ?Mechanical prosthetic heart valve: ? 2.5 - 3.5 ?Recurrent acute myocardial infarction: ? 2.5 - 3.5 10/08/2017 12:2 2 PM EST 10/11/2017 6:43 AM EST Tami Richardson MD POINT OF CARE TEST ORDERABLES F inal Result Performing Organization Address [facility] Co de Phone Number [facility] [address] [employer] [facility]. [address] * POC Sample Type (10/08/2017 11:38 AM EST) POC Sample Type Arterial 10/08/2017 11:42 AM EST [facility] Arterial blood specimen (specimen) 10/08/2017 11:38 AM EST 10/08/2017 11:42 AM EST Result Yuri Richardson MD POINT OF CARE TEST ORDERABLES F inal Result Performing Organization Address [facility] Co de Phone Number [facility] [address] [place] [address]. [address] * POC Anion Gap (10/08/2017 11:38 AM EST) POC Anion Gap, Arterial 9 3 - 16 mmol/L 10/08/2017 11:42 AM EST [facility] Arterial blood specimen (specimen) 10/08/2017 11:38 AM EST 10/08/2017 11:42 AM EST Result Yuri Richardson MD POINT OF CARE TEST ORDERABLES F inal Result Performing Organization Address [facility] de Phone Number [facility] [address] [place] [address]. [address] * POC TCO2 (10/08/2017 11:38 AM EST) POC TCO2, Arterial 25 23 - 27 mmol/L 10/08/2017 11:42 AM EST [facility] Arterial blood specimen (specimen) 10/08/2017 11:38 AM EST 10/08/2017 11:42 AM EST Result Yuri Richardson MD POINT OF CARE TEST ORDERABLES F inal Result Performing Organization Address [facility] Co de Phone Number [facility] [address] [place] [address]. [address] * (ABNORMAL) POC O2 SAT (10/08/2017 11:38 AM EST) POC O2 Saturation, Arterial 100(H) 95 - 98 % 10/08/2017 11:42 AM EST [facility] Arterial blood specimen (specimen) 10/08/2017 11:38 AM EST 10/08/2017 11:42 AM EST Result Yuri Richardson MD POINT OF CARE TEST ORDERABLES F inal Result [facility] [address] * POC Base Excess (10/08/2017 11:38 AM EST) POC Base Excess, Arterial -2 -2 - 3 mmol/L 10/08/2017 11:42 AM EST [facility] Arterial blood specimen (specimen) 10/08/2017 11:38 AM EST 10/08/2017 11:42 AM EST Tami Richardson MD POINT OF CARE TEST ORDERABLES F inal Result Performing Organization Address [facility]/ZIP Co de Phone Number [facility] [address] * POC HCO3 (10/08/2017 11:38 AM EST) POC HCO3, Arterial 24 22 - 26 mmol/L 10/08/2017 11:42 AM EST [facility] Arterial blood specimen (specimen) 10/08/2017 11:38 AM EST 10/08/2017 11:42 AM EST Tami Richardson MD POINT OF CARE TEST ORDERABLES F inal Result Performing Organization Address [facility]/ZIP Co de Phone Number [facility] [address] [employer] [facility] [employer] [facility]. [address] * (ABNORMAL) POC Chloride (10/08/2017 11:38 AM EST) POC Chloride 114(H) 98 - 110 mmol/L 10/08/2017 11:42 AM EST [facility] Arterial blood specimen (specimen) 10/08/2017 11:38 AM EST 10/08/2017 11:42 AM EST Tami Richardson MD POINT OF CARE TEST ORDERABLES F inal Result [facility] [address] * (ABNORMAL) POC Lactate (10/08/2017 11:38 AM EST) POC Lactate 2.47(H) 0.50 - 2.20 mmol/L 10/08/2017 11:42 AM EST [facility] Arterial blood specimen (specimen) 10/08/2017 11:38 AM EST 10/08/2017 11:42 AM EST us Tami Richardson MD POINT OF CARE TEST ORDERABLES F inal Result [facility] [address] [facility] * (ABNORMAL) POC Glucose (10/08/2017 11:38 AM EST) Pathologist [facility] POC Glucose, Arterial 218(H) 70 - 100 mg/dL 10/08/2017 11:42 AM EST [facility] Arterial blood specimen (specimen) 10/08/2017 11:38 AM EST 10/08/2017 11:42 AM EST us Tami Richardson MD POINT OF CARE TEST ORDERABLES F inal Result Performing Organization Address [facility] Co de Phone Number [facility] [address] [place] [address]. [address] * (ABNORMAL) POC Ionized Calcium (10/08/2017 11:38 AM EST) Pathologist [facility] [place] POC Ionized Calcium 6.10(H) 4.50 - 5.30 mg/dL 10/08/2017 11:42 AM EST [facility] Arterial blood specimen (specimen) 10/08/2017 11:38 AM EST 10/08/2017 11:42 AM EST us Tami Richardson MD POINT OF CARE TEST ORDERABLES F inal Result Performing Organization Address City/[facility]/ZIP Co de Phone Number [facility] [address] [place] [address]. [address] * POC Potassium (10/08/2017 11:38 AM EST) POC Potassium 4.3 3.5 - 5.3 mmol/L 10/08/2017 11:42 AM EST [facility] Arterial blood specimen (specimen) 10/08/2017 11:38 AM EST 10/08/2017 11:42 AM EST us Tami Richardson MD POINT OF CARE TEST ORDERABLES F inal Result Performing Organization Address City/[facility] Co de Phone Number [facility] [address] [place] [address]. [address] * (ABNORMAL) POC Sodium (10/08/2017 11:38 AM EST) POC Sodium 147(H) 136 - 146 mmol/L 10/08/2017 11:42 AM EST [facility] Arterial blood specimen (specimen) 10/08/2017 11:38 AM EST 10/08/2017 11:42 AM EST us Tami Richardson MD POINT OF CARE TEST ORDERABLES F inal Result Performing Organization Address [facility] Co de Phone Number [facility] [address] [place] [address]. [address] * (ABNORMAL) POC PO2 (10/08/2017 11:38 AM EST) POC pO2, Arterial 280(H) 80 - 100 mm Hg 10/08/2017 11:42 AM EST [facility] Arterial blood specimen (specimen) 10/08/2017 11:38 AM EST 10/08/2017 11:42 AM EST us Tami Richardson MD POINT OF CARE TEST ORDERABLES F inal Result Performing Organization Address City/[facility] Co de Phone Number [facility] [address] [place] [address]. [address] * POC PCO2 (10/08/2017 11:38 AM EST) POC pCO2, Arterial 45 35 - 45 mm Hg 10/08/2017 11:42 AM EST [facility] Arterial blood specimen (specimen) 10/08/2017 11:38 AM EST 10/08/2017 11:42 AM EST Result Yuri Richardson MD POINT OF CARE TEST ORDERABLES F inal Result Performing Organization Address [facility] Co de Phone Number [facility] [address] * (ABNORMAL) POC pH (10/08/2017 11:38 AM EST) POC pH, Arterial 7.34(L) 7.35 - 7.45 10/08/2017 11:42 AM EST [facility] Arterial blood specimen (specimen) 10/08/2017 11:38 AM EST 10/08/2017 11:42 AM EST Result Yuri Richardson MD POINT OF CARE TEST ORDERABLES F inal Result Performing Organization Address [facility] Co de Phone Number [facility] [address] [facility] * (ABNORMAL) POC Hemocue Hemoglobin (10/08/2017 11:37 AM EST) Hemoglobin, Hemocue 8.7(L) 13.2 - 17.1 g/dL 10/08/2017 12:38 PM EST [facility] Whole blood specimen (specimen) 10/08/2017 11:37 AM EST 10/08/2017 12:38 PM EST Result Yuri Richardson MD POINT OF CARE TEST ORDERABLES F inal Result Performing Organization Address [facility] Co de Phone Number [facility] [address] [facility] * (ABNORMAL) POC INR (10/08/2017 11:33 AM EST) Prothrombin Time INR, POC 1.8(H) 0.8 - 1.4 10/11/2017 6:44 AM EST [facility] Comment: Test results may vary using different testing platforms. Serial result monitoring should be performed using the same methodology. RECOMMENDED THERAPEUTIC RANGES USING INR : ?Stable oral anticoagulant therapy: ? 2.0 - 3.0 ?Mechanical prosthetic heart valve: ? 2.5 - 3.5 ?Recurrent acute myocardial infarction: ? 2.5 - 3.5 10/08/2017 11:3 3 AM EST 10/11/2017 6:43 AM EST us Tami Richardson MD POINT OF CARE TEST ORDERABLES F inal Result Performing Organization Address [facility] de Phone Number [facility] [address] [place] [address] * POC Sample Type (10/08/2017 11:09 AM EST) POC Sample Type Arterial 10/08/2017 11:14 AM EST [facility] Arterial blood specimen (specimen) 10/08/2017 11:09 AM EST 10/08/2017 11:13 AM EST us Tami Richardson MD POINT OF CARE TEST ORDERABLES F inal Result Performing Organization Address [facility] de Phone Number [facility] [address] [facility] * POC Anion Gap (10/08/2017 11:09 AM EST) POC Anion Gap, Arterial 13 3 - 16 mmol/L 10/08/2017 11:14 AM EST [facility] Arterial blood specimen (specimen) 10/08/2017 11:09 AM EST 10/08/2017 11:13 AM EST us Tami Richardson MD POINT OF CARE TEST ORDERABLES F inal Result [facility] [address] * (ABNORMAL) POC TCO2 (10/08/2017 11:09 AM EST) POC TCO2, Arterial 22(L) 23 - 27 mmol/L 10/08/2017 11:14 AM EST [facility] Arterial blood specimen (specimen) 10/08/2017 11:09 AM EST 10/08/2017 11:13 AM EST Tami Richardson MD POINT OF CARE TEST ORDERABLES F inal Result Performing Organization Address [facility] Co de Phone Number [facility] [address] * (ABNORMAL) POC O2 SAT (10/08/2017 11:09 AM EST) POC O2 Saturation, Arterial 100(H) 95 - 98 % 10/08/2017 11:14 AM EST [facility] Arterial blood specimen (specimen) 10/08/2017 11:09 AM EST 10/08/2017 11:13 AM EST us Tami Richardson MD POINT OF CARE TEST ORDERABLES F inal Result Performing Organization Address [facility] Co de Phone Number [facility] [address] * (ABNORMAL) POC Base Excess (10/08/2017 11:09 AM EST) POC Base Excess, Arterial -5(L) -2 - 3 mmol/L 10/08/2017 11:14 AM EST [facility] Arterial blood specimen (specimen) 10/08/2017 11:09 AM EST 10/08/2017 11:13 AM EST us Tami Richardson MD POINT OF CARE TEST ORDERABLES F inal Result [facility] [address] * (ABNORMAL) POC HCO3 (10/08/2017 11:09 AM EST) POC HCO3, Arterial 21(L) 22 - 26 mmol/L 10/08/2017 11:14 AM EST [facility] Arterial blood specimen (specimen) 10/08/2017 11:09 AM EST 10/08/2017 11:13 AM EST us Tami Richardson MD POINT OF CARE TEST ORDERABLES F inal Result [facility] [address] [place] [address] Ave[address] * (ABNORMAL) POC Chloride (10/08/2017 11:09 AM EST) POC Chloride 112(H) 98 - 110 mmol/L 10/08/2017 11:14 AM EST [facility] Arterial blood specimen (specimen) 10/08/2017 11:09 AM EST 10/08/2017 11:13 AM EST us Tami Richardson MD POINT OF CARE TEST ORDERABLES F inal Result Performing Organization Address [facility] Co de Phone Number [facility] [address] [place] [address]. [address] * (ABNORMAL) POC Lactate (10/08/2017 11:09 AM EST) POC Lactate 4.04(H) 0.50 - 2.20 mmol/L 10/08/2017 11:14 AM EST [facility] Arterial blood specimen (specimen) 10/08/2017 11:09 AM EST 10/08/2017 11:13 AM EST us Tami Richardson MD POINT OF CARE TEST ORDERABLES F inal Result Performing Organization Address City/[facility]/ZIP Co de Phone Number [facility] [address] [place] [address] * (ABNORMAL) POC Glucose (10/08/2017 11:09 AM EST) [facility] POC Glucose, Arterial 167(H) 70 - 100 mg/dL 10/08/2017 11:14 AM EST [facility] Arterial blood specimen (specimen) 10/08/2017 11:09 AM EST 10/08/2017 11:13 AM EST us Tami Richardson MD POINT OF CARE TEST ORDERABLES F inal Result Performing Organization Address City/[facility]/ZIP Co de Phone Number [facility] [address] [place] [address]. [address] * (ABNORMAL) POC Ionized Calcium (10/08/2017 11:09 AM EST) [facility] POC Ionized Calcium 6.40(HH) 4.50 - 5.30 mg/dL 10/08/2017 11:14 AM EST [facility] Arterial blood specimen (specimen) 10/08/2017 11:09 AM EST 10/08/2017 11:13 AM EST Tami Richardson MD POINT OF CARE TEST ORDERABLES F inal Result Performing Organization Address City/[facility] Co de Phone Number [facility] [address] [facility] * POC Potassium (10/08/2017 11:09 AM EST) [facility] POC Potassium 4.2 3.5 - 5.3 mmol/L 10/08/2017 11:14 AM EST [facility] Arterial blood specimen (specimen) 10/08/2017 11:09 AM EST 10/08/2017 11:13 AM EST us Tami Richardson MD POINT OF CARE TEST ORDERABLES F inal Result Performing Organization Address City/[facility] Co de Phone Number [facility] [address] * POC Sodium (10/08/2017 11:09 AM EST) [facility] POC Sodium 146 136 - 146 mmol/L 10/08/2017 11:14 AM EST [facility] Arterial blood specimen (specimen) 10/08/2017 11:09 AM EST 10/08/2017 11:13 AM EST us Tami Richardson MD POINT OF CARE TEST ORDERABLES F inal Result Performing Organization Address [facility] Co de Phone Number [facility] [address] [facility] * (ABNORMAL) POC PO2 (10/08/2017 11:09 AM EST) POC pO2, Arterial 242(H) 80 - 100 mm Hg 10/08/2017 11:14 AM EST [facility] Arterial blood specimen (specimen) 10/08/2017 11:09 AM EST 10/08/2017 11:13 AM EST us Tami Richardson MD POINT OF CARE TEST ORDERABLES F inal Result Performing Organization Address [facility] Co de Phone Number [facility] [address] [facility] * POC PCO2 (10/08/2017 11:09 AM EST) POC pCO2, Arterial 40 35 - 45 mm Hg 10/08/2017 11:14 AM EST [facility] Arterial blood specimen (specimen) 10/08/2017 11:09 AM EST 10/08/2017 11:13 AM EST us Tami Richardson MD POINT OF CARE TEST ORDERABLES F inal Result Performing Organization Address [facility] Co de Phone Number [facility] [address] [facility] * (ABNORMAL) POC pH (10/08/2017 11:09 AM EST) POC pH, Arterial 7.32(L) 7.35 - 7.45 10/08/2017 11:14 AM EST [facility] Arterial blood specimen (specimen) 10/08/2017 11:09 AM EST 10/08/2017 11:13 AM EST us Tami Richardson MD POINT OF CARE TEST ORDERABLES F inal Result Performing Organization Address City/[facility]/ZIP Co de Phone Number [facility] [address] * POC Sample Type (10/08/2017 11:05 AM EST) POC Sample Type Arterial 10/08/2017 11:08 AM EST [facility] Arterial blood specimen (specimen) 10/08/2017 11:05 AM EST 10/08/2017 11:08 AM EST us Tami Richardson MD POINT OF CARE TEST ORDERABLES F inal Result Performing Organization Address [facility] Co de Phone Number [facility] [address] * POC Anion Gap (10/08/2017 11:05 AM EST) POC Anion Gap, Arterial 15 3 - 16 mmol/L 10/08/2017 11:08 AM EST [facility] Arterial blood specimen (specimen) 10/08/2017 11:05 AM EST 10/08/2017 11:08 AM EST us Tami Richardson MD POINT OF CARE TEST ORDERABLES F inal Result Performing Organization Address [facility] Co de Phone Number [facility] [address] * (ABNORMAL) POC TCO2 (10/08/2017 11:05 AM EST) POC TCO2, Arterial 22(L) 23 - 27 mmol/L 10/08/2017 11:08 AM EST [facility] Arterial blood specimen (specimen) 10/08/2017 11:05 AM EST 10/08/2017 11:08 AM EST us Tami Richardson MD POINT OF CARE TEST ORDERABLES F inal Result [facility] [address] * (ABNORMAL) POC O2 SAT (10/08/2017 11:05 AM EST) POC O2 Saturation, Arterial 100(H) 95 - 98 % 10/08/2017 11:08 AM EST [facility] Arterial blood specimen (specimen) 10/08/2017 11:05 AM EST 10/08/2017 11:08 AM EST Tami Richardson MD POINT OF CARE TEST ORDERABLES F inal Result [facility] [address] [place] [address]. [address] * (ABNORMAL) POC Base Excess (10/08/2017 11:05 AM EST) POC Base Excess, Arterial -4(L) -2 - 3 mmol/L 10/08/2017 11:08 AM EST [facility] Arterial blood specimen (specimen) 10/08/2017 11:05 AM EST 10/08/2017 11:08 AM EST us Tami Richardson MD POINT OF CARE TEST ORDERABLES F inal Result Performing Organization Address City/[facility]/ZIP Co de Phone Number [facility] [address] [facility] * (ABNORMAL) POC HCO3 (10/08/2017 11:05 AM EST) POC HCO3, Arterial 21(L) 22 - 26 mmol/L 10/08/2017 11:08 AM EST [facility] Arterial blood specimen (specimen) 10/08/2017 11:05 AM EST 10/08/2017 11:08 AM EST us Tami Richardson MD POINT OF CARE TEST ORDERABLES F inal Result [facility] [address] [place] [address]. [address] * (ABNORMAL) POC Chloride (10/08/2017 11:05 AM EST) POC Chloride 114(H) 98 - 110 mmol/L 10/08/2017 11:08 AM EST [facility] Arterial blood specimen (specimen) 10/08/2017 11:05 AM EST 10/08/2017 11:08 AM EST Tami Richardson MD POINT OF CARE TEST ORDERABLES F inal Result [facility] [address] [place] [address]. [address] * (ABNORMAL) POC Ionized Calcium (10/08/2017 11:05 AM EST) POC Ionized Calcium 6.10(H) 4.50 - 5.30 mg/dL 10/08/2017 11:08 AM EST [facility] Arterial blood specimen (specimen) 10/08/2017 11:05 AM EST 10/08/2017 11:08 AM EST Tami Richardson MD POINT OF CARE TEST ORDERABLES F inal Result Performing Organization Address City/[facility] Co de Phone Number [facility] [address] [place] [address]. [address] * POC Potassium (10/08/2017 11:05 AM EST) POC Potassium 4.2 3.5 - 5.3 mmol/L 10/08/2017 11:08 AM EST [facility] Arterial blood specimen (specimen) 10/08/2017 11:05 AM EST 10/08/2017 11:08 AM EST us Tami Richardson MD POINT OF CARE TEST ORDERABLES F inal Result Performing Organization Address City/[facility] Co de Phone Number [facility] [address] [place] [address] * (ABNORMAL) POC Sodium (10/08/2017 11:05 AM EST) POC Sodium 150(H) 136 - 146 mmol/L 10/08/2017 11:08 AM EST [facility] Arterial blood specimen (specimen) 10/08/2017 11:05 AM EST 10/08/2017 11:08 AM EST Tami Richardson MD POINT OF CARE TEST ORDERABLES F inal Result Performing Organization Address [facility] Co de Phone Number [facility] [address] [place] [address]. [address] * (ABNORMAL) POC PO2 (10/08/2017 11:05 AM EST) POC pO2, Arterial 266(H) 80 - 100 mm Hg 10/08/2017 11:08 AM EST [facility] Arterial blood specimen (specimen) 10/08/2017 11:05 AM EST 10/08/2017 11:08 AM EST Tami Richardson MD POINT OF CARE TEST ORDERABLES F inal Result Performing Organization Address [facility] Co de Phone Number [facility] [address] [facility] * POC PCO2 (10/08/2017 11:05 AM EST) POC pCO2, Arterial 39 35 - 45 mm Hg 10/08/2017 11:08 AM EST [facility] Arterial blood specimen (specimen) 10/08/2017 11:05 AM EST 10/08/2017 11:08 AM EST Tami Richardson MD POINT OF CARE TEST ORDERABLES F inal Result Performing Organization Address City/[facility] Co de Phone Number [facility] [address] [facility] * (ABNORMAL) POC pH (10/08/2017 11:05 AM EST) POC pH, Arterial 7.34(L) 7.35 - 7.45 10/08/2017 11:08 AM EST [facility] Arterial blood specimen (specimen) 10/08/2017 11:05 AM EST 10/08/2017 11:08 AM EST Tami Richardson MD POINT OF CARE TEST ORDERABLES F inal Result [facility] [address] * (ABNORMAL) POC Hemocue Hemoglobin (10/08/2017 11:03 AM EST) Hemoglobin, Hemocue 8.8(L) 13.2 - 17.1 g/dL 10/08/2017 12:38 PM EST [facility] Whole blood specimen (specimen) 10/08/2017 11:03 AM EST 10/08/2017 12:38 PM EST Tami Richardson MD POINT OF CARE TEST ORDERABLES F inal Result Performing Organization Address [facility] Co de Phone Number [facility] [address] * (ABNORMAL) CBC (10/08/2017 11:03 AM EST) WBC 3.2(L) 3.8 - 10.8 10E3/uL 10/08/2017 11:18 AM EST [facility] RBC 2.55(L) 4.20 - 5.80 10E6/uL 10/08/2017 11:18 AM EST [facility] Hemoglobin 9.2(L) 13.2 - 17.1 g/dL 10/08/2017 11:18 AM EST [facility] Hematocrit 26.3(L) 38.5 - 50.0 % 10/08/2017 11:18 AM EST [facility] MCV 103.4(H) 80.0 - 100.0 fL 10/08/2017 11:18 AM EST [facility] MCH 36.1(H) 27.0 - 33.0 pg 10/08/2017 11:18 AM EST [facility] MCHC 34.9 32.0 - 36.0 g/dL 10/08/2017 11:18 AM EST [facility] RDW 20.6(H) 11.0 - 15.0 % 10/08/2017 11:18 AM EST [facility] Platelets 92(L) 140 - 400 10E3/uL 10/08/2017 11:18 AM EST [facility] MPV 7.9 7.5 - 11.5 fL 10/08/2017 11:18 AM EST [facility] Whole blood specimen (specimen) 10/08/2017 11:03 AM EST 10/08/2017 11:09 AM EST us Renato Dias MD LAB BLOOD ORDERABLES Final Result [facility] [address] * (ABNORMAL) APTT, No Anticoagulant (10/08/2017 11:03 AM EST) aPTT 101.1(HH) 25.5 - 35.0 seconds 10/08/2017 11:56 AM EST [facility] Comment:The critical result was called to, and read back by, licensed caregiver JUDIE CRESPO RN @11:55 BY [place] Plasma specimen (specimen) 10/08/2017 11:03 AM EST 10/08/2017 11:09 AM EST us Renato Dias MD LAB BLOOD ORDERABLES Final Result Performing Organization Address [facility] Co de Phone Number [facility] [address] * (ABNORMAL) Fibrinogen (10/08/2017 11:03 AM EST) Fibrinogen 145(L) 218 - 406 mg/dL 10/08/2017 11:34 AM EST [facility] Plasma specimen (specimen) 10/08/2017 11:03 AM EST 10/08/2017 11:09 AM EST us Renato Dias MD LAB BLOOD ORDERABLES Final Result Performing Organization Address City/[facility]/ZIP Co de Phone Number [facility] [address] * (ABNORMAL) Protime-INR (10/08/2017 11:03 AM EST) Protime 24.9(H) 11.8 - 14.8 seconds 10/08/2017 11:29 AM EST [facility] Comment:Effective 07/12/2017 , the PT and PTMIX reference range has changed from 11.6 -14.4 sec to 11.8-14.8 sec. INR 2.2(H) 0.9 - 1.1 10/08/2017 11:29 AM EST [facility] Comment: RECOMMENDED THERAPEUTIC RANGES USING INR : ?Stable oral anticoagulant therapy: ? 2.0 - 3.0 ?Mechanical prosthetic heart valve: ? 2.5 - 3.5 ?Recurrent acute myocardial infarction: ? 2.5 - 3.5 Plasma specimen (specimen) 10/08/2017 11:03 AM EST 10/08/2017 11:09 AM EST Renato Dias MD LAB BLOOD ORDERABLES Final Result Performing Organization Address City/State/[facility] Co de Phone Number [facility] [address] * (ABNORMAL) Rapid TEG (10/08/2017 11:03 AM EST) TEG ACT 136.0(H) 86.0 - 118.0 seconds 10/08/2017 12:34 PM EST [facility] Comment:The TEG ACT test par ameter is approved to monitor heparin in adult patients. It has not been approved by the FDA for other uses. TEG R Time 55.0(H) 22 - 44 seconds 10/08/2017 12:34 PM EST [facility] TEG Time 135.0 34 - 138 seconds 10/08/2017 12:34 PM EST [facility] TEG Angle 70.1 64 - 80 degrees 10/08/2017 12:34 PM EST [facility] TEG Max Amplitude 51.3(L) 52 - 71 mm 10/08/2017 12:34 PM EST [facility] TEG Lysis 30 0.0 % 10/08/2017 12:34 PM EST [facility] Whole blood specimen (specimen) 10/08/2017 11:03 AM EST 10/08/2017 11:09 AM EST Renato Dias MD LAB BLOOD ORDERABLES Final Result Performing Organization Address [facility] de Phone Number [facility] [address] * (ABNORMAL) POC INR (10/08/2017 10:58 AM EST) [facility] Prothrombin Time INR, POC 2.4(H) 0.8 - 1.4 10/11/2017 6:44 AM EST [facility] Comment: Test results may vary using different testing platforms. Serial result monitoring should be performed using the same methodology. RECOMMENDED THERAPEUTIC RANGES USING INR : ?Stable oral anticoagulant therapy: ? 2.0 - 3.0 ?Mechanical prosthetic heart valve: ? 2.5 - 3.5 ?Recurrent acute myocardial infarction: ? 2.5 - 3.5 10/08/2017 10:5 8 AM EST 10/11/2017 6:43 AM EST Tami Richardson MD POINT OF CARE TEST ORDERABLES F inal Result Performing Organization Address [facility] Co de Phone Number [facility] [address] * (ABNORMAL) POC Hemocue Hemoglobin (10/08/2017 10:04 AM EST) Hemoglobin, Hemocue 9.1(L) 13.2 - 17.1 g/dL 10/08/2017 12:38 PM EST [facility] Whole blood specimen (specimen) 10/08/2017 10:04 AM EST 10/08/2017 12:38 PM EST Tami Richardson MD POINT OF CARE TEST ORDERABLES F inal Result [facility] [address] [employer] [facility]. [address] * POC Sample Type (10/08/2017 10:04 AM EST) Pathologist [facility] POC Sample Type Arterial 10/08/2017 10:07 AM EST [facility] Arterial blood specimen (specimen) 10/08/2017 10:04 AM EST 10/08/2017 10:07 AM EST Tami Richardson MD POINT OF CARE TEST ORDERABLES F inal Result [facility] [address] * POC Anion Gap (10/08/2017 10:04 AM EST) Pathologist [facility] POC Anion Gap, Arterial 11 3 - 16 mmol/L 10/08/2017 10:07 AM EST [facility] Arterial blood specimen (specimen) 10/08/2017 10:04 AM EST 10/08/2017 10:07 AM EST Tami Richardson MD POINT OF CARE TEST ORDERABLES F inal Result [facility] [address] [employer] [facility]. [address] * POC TCO2 (10/08/2017 10:04 AM EST) Pathologist [facility] POC TCO2, Arterial 24 23 - 27 mmol/L 10/08/2017 10:07 AM EST [facility] Arterial blood specimen (specimen) 10/08/2017 10:04 AM EST 10/08/2017 10:07 AM EST us Tami Richardson MD POINT OF CARE TEST ORDERABLES F inal Result Performing Organization Address City/[facility]/ZIP Co de Phone Number [facility] [address] [facility] * (ABNORMAL) POC O2 SAT (10/08/2017 10:04 AM EST) POC O2 Saturation, Arterial 100(H) 95 - 98 % 10/08/2017 10:07 AM EST [facility] Arterial blood specimen (specimen) 10/08/2017 10:04 AM EST 10/08/2017 10:07 AM EST us Tami Richardson MD POINT OF CARE TEST ORDERABLES F inal Result Performing Organization Address City/[facility] Co de Phone Number [facility] [address] [facility] * POC Base Excess (10/08/2017 10:04 AM EST) POC Base Excess, Arterial -2 -2 - 3 mmol/L 10/08/2017 10:07 AM EST [facility] Arterial blood specimen (specimen) 10/08/2017 10:04 AM EST 10/08/2017 10:07 AM EST us Tami Richardson MD POINT OF CARE TEST ORDERABLES F inal Result Performing Organization Address City/[facility]/ZIP Co de Phone Number [facility] [address] [place] [address]. [address] * POC HCO3 (10/08/2017 10:04 AM EST) POC HCO3, Arterial 23 22 - 26 mmol/L 10/08/2017 10:07 AM EST [facility] Arterial blood specimen (specimen) 10/08/2017 10:04 AM EST 10/08/2017 10:07 AM EST us Tami Richardson MD POINT OF CARE TEST ORDERABLES F inal Result Performing Organization Address [facility] Co de Phone Number [facility] [address] [place] [address]. [address] * (ABNORMAL) POC Chloride (10/08/2017 10:04 AM EST) POC Chloride 115(H) 98 - 110 mmol/L 10/08/2017 10:07 AM EST [facility] Arterial blood specimen (specimen) 10/08/2017 10:04 AM EST 10/08/2017 10:07 AM EST Tami Richardson MD POINT OF CARE TEST ORDERABLES F inal Result Performing Organization Address [facility] Co de Phone Number [facility] [address] [place] [address]. [address] * (ABNORMAL) POC Lactate (10/08/2017 10:04 AM EST) POC Lactate 3.20(H) 0.50 - 2.20 mmol/L 10/08/2017 10:07 AM EST [facility] Arterial blood specimen (specimen) 10/08/2017 10:04 AM EST 10/08/2017 10:07 AM EST Result [facility] Tami Richardson MD POINT OF CARE TEST ORDERABLES F inal Result Performing Organization Address [facility] Co de Phone Number [facility] [address] [place] [address]. [address] * (ABNORMAL) POC Glucose (10/08/2017 10:04 AM EST) POC Glucose, Arterial 178(H) 70 - 100 mg/dL 10/08/2017 10:07 AM EST [facility] Arterial blood specimen (specimen) 10/08/2017 10:04 AM EST 10/08/2017 10:07 AM EST us Tami Richardson MD POINT OF CARE TEST ORDERABLES F inal Result [facility] [address] * (ABNORMAL) POC Ionized Calcium (10/08/2017 10:04 AM EST) POC Ionized Calcium 6.50(HH) 4.50 - 5.30 mg/dL 10/08/2017 10:07 AM EST [facility] Arterial blood specimen (specimen) 10/08/2017 10:04 AM EST 10/08/2017 10:07 AM EST us Tami Richardson MD POINT OF CARE TEST ORDERABLES F inal Result Performing Organization Address [facility] Co de Phone Number [facility] [address] * POC Potassium (10/08/2017 10:04 AM EST) POC Potassium 4.5 3.5 - 5.3 mmol/L 10/08/2017 10:07 AM EST [facility] Arterial blood specimen (specimen) 10/08/2017 10:04 AM EST 10/08/2017 10:07 AM EST us Tami Richardson MD POINT OF CARE TEST ORDERABLES F inal Result Performing Organization Address [facility] Co de Phone Number [facility] [address] [facility]. [address] * (ABNORMAL) POC Sodium (10/08/2017 10:04 AM EST) POC Sodium 149(H) 136 - 146 mmol/L 10/08/2017 10:07 AM EST [facility] Arterial blood specimen (specimen) 10/08/2017 10:04 AM EST 10/08/2017 10:07 AM EST us Tami Richardson MD POINT OF CARE TEST ORDERABLES F inal Result Performing Organization Address City/[facility]/ZIP Co de Phone Number [facility] [address] [employer] [facility]. [address] * (ABNORMAL) POC PO2 (10/08/2017 10:04 AM EST) POC pO2, Arterial 170(H) 80 - 100 mm Hg 10/08/2017 10:07 AM EST [facility] Arterial blood specimen (specimen) 10/08/2017 10:04 AM EST 10/08/2017 10:07 AM EST Tami Richardson MD POINT OF CARE TEST ORDERABLES F inal Result [facility] [address] [place] [address]. [address] * POC PCO2 (10/08/2017 10:04 AM EST) POC pCO2, Arterial 37 35 - 45 mm Hg 10/08/2017 10:07 AM EST [facility] Arterial blood specimen (specimen) 10/08/2017 10:04 AM EST 10/08/2017 10:07 AM EST Tami Richardson MD POINT OF CARE TEST ORDERABLES F inal Result Performing Organization Address City/[facility] Co de Phone Number [facility] [address] [place] [address]. [address] * POC pH (10/08/2017 10:04 AM EST) POC pH, Arterial 7.39 7.35 - 7.45 10/08/2017 10:07 AM EST [facility] Arterial blood specimen (specimen) 10/08/2017 10:04 AM EST 10/08/2017 10:07 AM EST Tami Richardson MD POINT OF CARE TEST ORDERABLES F inal Result Performing Organization Address City/[facility] Co de Phone Number [facility] [address] [place] [address]. [address] * (ABNORMAL) POC INR (10/08/2017 9:59 AM EST) Prothrombin Time INR, POC 1.6(H) 0.8 - 1.4 10/11/2017 6:44 AM EST [facility] Comment: Test results may vary using different testing platforms. Serial result monitoring should be performed using the same methodology. RECOMMENDED THERAPEUTIC RANGES USING INR : ?Stable oral anticoagulant therapy: ? 2.0 - 3.0 ?Mechanical prosthetic heart valve: ? 2.5 - 3.5 ?Recurrent acute myocardial infarction: ? 2.5 - 3.5 10/08/2017 9:59 AM EST 10/11/2017 6:43 AM EST Tami Richardson MD POINT OF CARE TEST ORDERABLES F inal Result Performing Organization Address [facility] Co de Phone Number [facility] [address] [facility]. [address] * (ABNORMAL) POC Hemocue Hemoglobin (10/08/2017 9:05 AM EST) Hemoglobin, Hemocue 8.8(L) 13.2 - 17.1 g/dL 10/08/2017 12:38 PM EST [facility] Whole blood specimen (specimen) 10/08/2017 9:05 AM EST 10/08/2017 12:38 PM EST Tami Richardson MD POINT OF CARE TEST ORDERABLES F inal Result Performing Organization Address [facility] Co de Phone Number [facility] [address] [facility] * (ABNORMAL) CBC (10/08/2017 9:03 AM EST) WBC 2.8(L) 3.8 - 10.8 10E3/uL 10/08/2017 9:15 AM EST [facility] RBC 2.38(L) 4.20 - 5.80 10E6/uL 10/08/2017 9:15 AM EST [facility] Hemoglobin 9.1(L) 13.2 - 17.1 g/dL 10/08/2017 9:15 AM EST [facility] Hematocrit 25.4(L) 38.5 - 50.0 % 10/08/2017 9:15 AM EST [facility] MCV 106.8(H) 80.0 - 100.0 fL 10/08/2017 9:15 AM EST [facility] MCH 38.3(H) 27.0 - 33.0 pg 10/08/2017 9:15 AM EST [facility] MCHC 35.9 32.0 - 36.0 g/dL 10/08/2017 9:15 AM EST [facility] RDW 16.3(H) 11.0 - 15.0 % 10/08/2017 9:15 AM EST [facility] Platelets 108(L) 140 - 400 10E3/uL 10/08/2017 9:15 AM EST [facility] MPV 7.4(L) 7.5 - 11.5 fL 10/08/2017 9:15 AM EST [facility] Whole blood specimen (specimen) 10/08/2017 9:03 AM EST 10/08/2017 9:11 AM EST us Marino Izaguirre MD LAB BLOOD ORDERABLES Final Resul t Performing Organization Address City/[facility]/ZIP Co de Phone Number [facility] [address] * (ABNORMAL) Fibrinogen (10/08/2017 9:03 AM EST) Fibrinogen 188(L) 218 - 406 mg/dL 10/08/2017 9:36 AM EST [facility] Plasma specimen (specimen) 10/08/2017 9:03 AM EST 10/08/2017 9:11 AM EST Marino Izaguirre MD LAB BLOOD ORDERABLES Final Resul t [facility] [address] [facility] * (ABNORMAL) Protime-INR (10/08/2017 9:03 AM EST) Protime 20.6(H) 11.8 - 14.8 seconds 10/08/2017 9:35 AM EST [facility] Comment:Effective 07/12/2017 , the PT and PTMIX reference range has changed from 11.6 -14.4 sec to 11.8-14.8 sec. INR 1.7(H) 0.9 - 1.1 10/08/2017 9:35 AM EST [facility] Comment: RECOMMENDED THERAPEUTIC RANGES USING INR : ?Stable oral anticoagulant therapy: ? 2.0 - 3.0 ?Mechanical prosthetic heart valve: ? 2.5 - 3.5 ?Recurrent acute myocardial infarction: ? 2.5 - 3.5 Plasma specimen (specimen) 10/08/2017 9:03 AM EST 10/08/2017 9:11 AM EST us Marino Izaguirre MD LAB BLOOD ORDERABLES Final Resul t [facility] [address] * Rapid TEG (10/08/2017 9:03 AM EST) TEG ACT 97.0 86.0 - 118.0 seconds 10/08/2017 10:33 AM EST [facility] Comment:The TEG ACT test par ameter is approved to monitor heparin in adult patients. It has not been approved by the FDA for other uses. TEG R Time 30.0 22 - 44 seconds 10/08/2017 10:33 AM EST [facility] TEG Time 55.0 34 - 138 seconds 10/08/2017 10:33 AM EST [facility] TEG Angle 80.0 64 - 80 degrees 10/08/2017 10:33 AM EST [facility] TEG Max Amplitude 58.0 52 - 71 mm 10/08/2017 10:33 AM EST [facility] TEG Lysis 30 0.0 % 10/08/2017 10:33 AM EST [facility] Whole blood specimen (specimen) 10/08/2017 9:03 AM EST 10/08/2017 9:11 AM EST Marino Izaguirre MD LAB BLOOD ORDERABLES Final Resul t [facility] [address] [facility] * POC Sample Type (10/08/2017 9:03 AM EST) POC Sample Type Arterial 10/08/2017 9:05 AM EST [facility] Arterial blood specimen (specimen) 10/08/2017 9:03 AM EST 10/08/2017 9:05 AM EST Tami Richardson MD POINT OF CARE TEST ORDERABLES F inal Result Performing Organization Address [facility] Co de Phone Number [facility] [address] [facility] * POC Anion Gap (10/08/2017 9:03 AM EST) POC Anion Gap, Arterial 12 3 - 16 mmol/L 10/08/2017 9:05 AM EST [facility] Arterial blood specimen (specimen) 10/08/2017 9:03 AM EST 10/08/2017 9:05 AM EST Tami Richardson MD POINT OF CARE TEST ORDERABLES F inal Result Performing Organization Address City/[facility] Co de Phone Number [facility] [address] [facility] * POC TCO2 (10/08/2017 9:03 AM EST) POC TCO2, Arterial 25 23 - 27 mmol/L 10/08/2017 9:05 AM EST [facility] Arterial blood specimen (specimen) 10/08/2017 9:03 AM EST 10/08/2017 9:05 AM EST us Tami Richardson MD POINT OF CARE TEST ORDERABLES F inal Result [facility] [address] [place] [address]. [address] * (ABNORMAL) POC O2 SAT (10/08/2017 9:03 AM EST) POC O2 Saturation, Arterial 100(H) 95 - 98 % 10/08/2017 9:05 AM EST [facility] Arterial blood specimen (specimen) 10/08/2017 9:03 AM EST 10/08/2017 9:05 AM EST Tami Richardson MD POINT OF CARE TEST ORDERABLES F inal Result [facility] [address] [facility] * POC Base Excess (10/08/2017 9:03 AM EST) POC Base Excess, Arterial -1 -2 - 3 mmol/L 10/08/2017 9:05 AM EST [facility] Arterial blood specimen (specimen) 10/08/2017 9:03 AM EST 10/08/2017 9:05 AM EST Tami Richardson MD POINT OF CARE TEST ORDERABLES F inal Result [facility] [address] [facility] * POC HCO3 (10/08/2017 9:03 AM EST) POC HCO3, Arterial 24 22 - 26 mmol/L 10/08/2017 9:05 AM EST [facility] Arterial blood specimen (specimen) 10/08/2017 9:03 AM EST 10/08/2017 9:05 AM EST us Tami Richardson MD POINT OF CARE TEST ORDERABLES F inal Result Performing Organization Address [facility] Co de Phone Number [facility] [address] [place] [address] * (ABNORMAL) POC Chloride (10/08/2017 9:03 AM EST) POC Chloride 113(H) 98 - 110 mmol/L 10/08/2017 9:05 AM EST [facility] Arterial blood specimen (specimen) 10/08/2017 9:03 AM EST 10/08/2017 9:05 AM EST us Tami Richardson MD POINT OF CARE TEST ORDERABLES F inal Result Performing Organization Address [facility] de Phone Number [facility] [address] [place] [address]. [address] * POC Lactate (10/08/2017 9:03 AM EST) POC Lactate 1.90 0.50 - 2.20 mmol/L 10/08/2017 9:05 AM EST [facility] Arterial blood specimen (specimen) 10/08/2017 9:03 AM EST 10/08/2017 9:05 AM EST us Tami Richardson MD POINT OF CARE TEST ORDERABLES F inal Result Performing Organization Address City/[facility] Co de Phone Number [facility] [address] [place] [address]. [address] * (ABNORMAL) POC Glucose (10/08/2017 9:03 AM EST) POC Glucose, Arterial 176(H) 70 - 100 mg/dL 10/08/2017 9:05 AM EST [facility] Arterial blood specimen (specimen) 10/08/2017 9:03 AM EST 10/08/2017 9:05 AM EST us Tami Richardson MD POINT OF CARE TEST ORDERABLES F inal Result [facility] [address] * POC Ionized Calcium (10/08/2017 9:03 AM EST) POC Ionized Calcium 5.00 4.50 - 5.30 mg/dL 10/08/2017 9:05 AM EST [facility] Arterial blood specimen (specimen) 10/08/2017 9:03 AM EST 10/08/2017 9:05 AM EST Tami Richardson MD POINT OF CARE TEST ORDERABLES F inal Result Performing Organization Address [facility]/ZIP Co de Phone Number [facility] [address] [facility] * POC Potassium (10/08/2017 9:03 AM EST) POC Potassium 4.0 3.5 - 5.3 mmol/L 10/08/2017 9:05 AM EST [facility] Arterial blood specimen (specimen) 10/08/2017 9:03 AM EST 10/08/2017 9:05 AM EST Tami Richardson MD POINT OF CARE TEST ORDERABLES F inal Result Performing Organization Address [facility]/ZIP Co de Phone Number [facility] [address] [facility] * (ABNORMAL) POC Sodium (10/08/2017 9:03 AM EST) POC Sodium 149(H) 136 - 146 mmol/L 10/08/2017 9:05 AM EST [facility] Arterial blood specimen (specimen) 10/08/2017 9:03 AM EST 10/08/2017 9:05 AM EST us Tami Richardson MD POINT OF CARE TEST ORDERABLES F inal Result [facility] [address] * (ABNORMAL) POC PO2 (10/08/2017 9:03 AM EST) POC pO2, Arterial 319(H) 80 - 100 mm Hg 10/08/2017 9:05 AM EST [facility] Arterial blood specimen (specimen) 10/08/2017 9:03 AM EST 10/08/2017 9:05 AM EST Tami Richardson MD POINT OF CARE TEST ORDERABLES F inal Result [facility] [address] [facility]. [address] * POC PCO2 (10/08/2017 9:03 AM EST) POC pCO2, Arterial 38 35 - 45 mm Hg 10/08/2017 9:05 AM EST [facility] Arterial blood specimen (specimen) 10/08/2017 9:03 AM EST 10/08/2017 9:05 AM EST Tami Richardson MD POINT OF CARE TEST ORDERABLES F inal Result Performing Organization Address City/[facility] Co de Phone Number [facility] [address] [facility]. [address] * POC pH (10/08/2017 9:03 AM EST) POC pH, Arterial 7.41 7.35 - 7.45 10/08/2017 9:05 AM EST [facility] Arterial blood specimen (specimen) 10/08/2017 9:03 AM EST 10/08/2017 9:05 AM EST Tami Richardson MD POINT OF CARE TEST ORDERABLES F inal Result Performing Organization Address City/[facility]/ZIP Co de Phone Number [facility] [address] [employer] [facility]. [address] * Prepare RBC, leukoreduced (10/08/2017 9:01 AM EST) Product Code G9980O23 HCLL Unit Number [id number] HCLL Dispense Status Released from [employer]match_RE HCLL Blood Expiration Date HCLL Coding System [id number] HCLL Product Code R3892S28 HCLL Unit Number [id number] HCLL Dispense Status Released from [employer] HCLL Blood Expiration Date HCLL Coding System RHED310 HCLL Product Code H9111U88 HCLL Unit Number [id number] HCLL Dispense Status Released from [employer] HCLL Blood Expiration Date HCLL Coding System [id number] HCLL Product Code Q6713T08 HCLL Unit Number [id number] HCLL Dispense Status Released from [employer]_RE HCLL Blood Expiration Date HCLL Coding System ZIVT832 HCLL Product Code Q6877I63 HCLL Unit Number [id number] HCLL Dispense Status Released from [employer]_RE HCLL Blood Expiration Date HCLL Coding System [id number] HCLL Product Code B9383Z40 HCLL Unit Number [id number] HCLL Dispense Status Released from [employer]_RE HCLL Blood Expiration Date HCLL Coding System DKRW441 HCLL Product Code S4603Y44 HCLL Unit Number [id number] HCLL Dispense Status Released from [employer] HCLL Blood Expiration Date HCLL Coding System [id number] HCLL us Attending Provider Unknown BLOOD BANK PRODUCT OR DERABLES Final Result HCLL * POC INR (10/08/2017 9:00 AM EST) Prothrombin Time INR, POC 1.4 0.8 - 1.4 10/11/2017 6:44 AM EST [facility] Comment: Test results may vary using different testing platforms. Serial result monitoring should be performed using the same methodology. RECOMMENDED THERAPEUTIC RANGES USING INR : ?Stable oral anticoagulant therapy: ? 2.0 - 3.0 ?Mechanical prosthetic heart valve: ? 2.5 - 3.5 ?Recurrent acute myocardial infarction: ? 2.5 - 3.5 10/08/2017 9:00 AM EST 10/11/2017 6:43 AM EST Tami Richardson MD POINT OF CARE TEST ORDERABLES F inal Result Performing Organization Address [facility] de Phone Number [facility] [address] * (ABNORMAL) POC Glucose Monitoring Device (10/08/2017 6:13 AM EST) POC Glucose Monitoring Device 210(H) 70 - 100 mg/dL 10/08/2017 6:23 AM EST [facility] Blood specimen (specimen) 10/08/2017 6:13 AM EST 10/08/2017 6:23 AM EST Tami Richardson MD POINT OF CARE TEST ORDERABLES F inal Result Performing Organization Address [facility] de Phone Number [facility] [address] * Antibody identification (10/08/2017 4:57 AM EST) Antibody Id. #1 Anti-C 10/08/2017 4:57 AM EST [facility] Antibody Id. #2 Anti-D 10/08/2017 4:57 AM EST [facility] Blood specimen (specimen) 10/08/2017 4:57 AM EST 10/08/2017 4:57 AM EST Jack Delgado MD BLOOD BANK TEST ORDER ASHISH Final Result [facility] [address] * ELIUD Anti-IgG (10/08/2017 4:54 AM EST) ELIUD IgG Negative 10/08/2017 4:54 AM EST [facility] Blood specimen (specimen) 10/08/2017 4:54 AM EST 10/08/2017 4:54 AM EST Jack Delgado MD BLOOD BANK TEST ORDER ASHISH Final Result Performing Organization Address [facility] Co de Phone Number [facility] [address] [employer] [facility]. [address] * ECG 12 lead (MUSE) (10/08/2017 1:03 AM EST) 10/08/2017 1:03 AM EST Narrative [facility] - 10/08/2017 10:41 AM EST Ventricular Rate: ??83 ??BPM Atrial Rate: ??83 ??BPM P-R Interval: ??170 ??ms QRS Duration: ??102 ??ms QT: ??414 ??ms QTc: ??487 ??ms P [place]: ??57 ??degrees R [place]: ??66 ??degrees T [place]: ??57 ??degrees Diagnosis Line: ??NORMAL SINUS RHYTHM ^ CANNOT RULE OUT INFERIOR INFARCT , AGE UNDETERMINED ^ PROLONGED QT ^ ABNORMAL ECG ^ No previous ECGs available ^ Confirmed by NAS PEREZ, ANANDA ([id number]) on 10/08/2017 10:40:57 AM Jack Delgado MD ECG ORDERABLES Final Result Performing Organization Address City/[facility] Co de Phone Number [facility] [address] [facility] [place] [address] * X-ray Chest PA and Lateral (10/08/2017 12:31 AM EST) Anatomical Region Laterality Modality Chest Radiographic Sobia ging 10/08/2017 12:3 1 AM EST Impressions 10/08/2017 1:03 AM EST IMPRESSION: No acute cardiopulmonary findings. Approved by Germán Santoyo on 10/08/2017 12:41 AM EST I have personally reviewed the images and I agree with this report. Report Verified by: ANDERSON GARRISON M.D. at 10/08/2017 1:03 AM EST Narrative 10/08/2017 1:03 AM EST EXAM: XR CHEST PA AND LATERAL HISTORY: Preoperative evaluation COMPARISON: ??None FINDINGS: The cardiomediastinal silhouette is within normal limits. There are no focal consolidations. No large pleural effusion or pneumothorax is identified. Procedure Note Mercy Garrison MD - 10/08/2017 EXAM: XR CHEST PA AND LATERAL HISTORY: Preoperative evaluation COMPARISON: None FINDINGS: The cardiomediastinal silhouette is within normal limits. There are nofocal consolidations. No large pleural effusion or pneumothorax isidentified. IMPRESSION: No acute cardiopulmonary findings. Approved by Germán Santoyo on 10/08/2017 12:41 AM EST I have personally reviewed the images and I agree with this report. Report Verified by: ANDERSON GARRISON M.D. at 10/08/2017 1:03 AM EST Jack Delgado MD IMG DIAGNOSTIC IMAGIN G ORDERABLES Final Result * Anti-Donor Antibody (10/08/2017 12:26 AM EST) AntiDonor Antibodies The request and specimen(s) for this test have been received and transported to the [facility] at [address] [place] [address]. The [facility] will report results directly to the client. 10/25/2017 11:03 AM EDT [facility] Comment:Testing performed by [facility], [facility], [address] [place] [address]. The [facility] report has been forwarded to the appropriate ordering location. Please refer to this report for patient results. Serum specimen (specimen) 10/08/2017 12:26 AM EST 10/25/2017 11:03 AM EDT Narrative [facility] - 10/25/2017 11:03 AM EDT Please store serum - do not run. Jack Delgado MD LAB BLOOD ORDERABLES Final Result Performing Organization Address [facility]/ZIP Co de Phone Number [facility] [address] * Rapid TEG (10/08/2017 12:26 AM EST) TEG ACT 105.0 86.0 - 118.0 seconds 10/08/2017 2:26 AM EST [facility] Comment:The TEG ACT test par ameter is approved to monitor heparin in adult patients. It has not been approved by the FDA for other uses. TEG R Time 35.0 22 - 44 seconds 10/08/2017 2:26 AM EST [facility] TEG Time 70.0 34 - 138 seconds 10/08/2017 2:26 AM EST [facility] TEG Angle 78.3 64 - 80 degrees 10/08/2017 2:26 AM EST [facility] TEG Max Amplitude 61.8 52 - 71 mm 10/08/2017 2:26 AM EST [facility] TEG Lysis 30 0.0 % 10/08/2017 2:26 AM EST [facility] Whole blood specimen (specimen) 10/08/2017 12:26 AM EST 10/08/2017 12:50 AM EST Jack Delgado MD LAB BLOOD ORDERABLES Final Result Performing Organization Address [facility] Co de Phone Number [facility] [address] [place] * (ABNORMAL) [place] Virus VCA IgG Ab (10/08/2017 12:26 AM EST) EBV VCA IgG Positive( AA) Negative 10/08/2017 8:56 AM EST [facility] Comment:Presence of detectab le VCA IgG antibodies. A positive result indicates current or past exposure to [place] virus. EBV IGG NUM 399.00(H) 0.00 - 17.99 U/mL 10/08/2017 8:56 AM EST [facility] Serum specimen (specimen) 10/08/2017 12:26 AM EST 10/08/2017 12:35 AM EST Jack Delgado MD LAB BLOOD ORDERABLES Final Result Performing Organization Address City/[facility]/ZIP Co de Phone Number [facility] [address] [employer] [facility]. [address] * CMV IgG Antibody (10/08/2017 12:26 AM EST) CMV IgG Negative Negative 10/08/2017 8:55 AM EST [facility] CMV IGG NUM 0.20 0.00 - 0.59 U/mL 10/08/2017 8:55 AM EST [facility] Serum specimen (specimen) 10/08/2017 12:26 AM EST 10/08/2017 12:35 AM EST Jack Delgado MD LAB BLOOD ORDERABLES Final Result Performing Organization Address [facility] Co de Phone Number [facility] [address] [facility]. [address] * HIV 1+2 Antibody/Antigen with Reflex (10/08/2017 12:26 AM EST) HIV 1+2 AB/AGN Nonreactive Nonreactive 10/08/2017 1:36 AM EST [facility] Serum specimen (specimen) 10/08/2017 12:26 AM EST 10/08/2017 12:35 AM EST Narrative [facility] - 10/08/2017 1:36 AM EST HIV-1 p24 Antigen and HIV-1/HIV-2 Antibody not detected. Jack Delgado MD LAB BLOOD ORDERABLES Final Result Performing Organization Address City/[facility] Co de Phone Number [facility] [address] [employer] [facility]. [address] * Hepatitis C Antibody (10/08/2017 12:26 AM EST) HCV Ab Nonreactive Nonreactive 10/08/2017 1:35 AM EST [facility] Comment:Health Department no tified in accordance with reportable infectious disease guidelines. HCVAB Number 0.15 0.00 - 0.79 S/CO 10/08/2017 1:35 AM EST [facility] Serum specimen (specimen) 10/08/2017 12:26 AM EST 10/08/2017 12:35 AM EST [facility] - 10/08/2017 1:35 AM EST Antibodies to HCV not detected; does not exclude the possibility of exposure to HCV. Jack Delgado MD LAB BLOOD ORDERABLES Final Result Performing Organization Address [facility] Co de Phone Number [facility] [address] [place] [address] * Hepatitis B Core Antibody (10/08/2017 12:26 AM EST) Hep B Core Total Ab Nonreactive Nonreactive 10/08/2017 1:32 AM EST [facility] Comment:Health Department no tified in accordance with reportable infectious disease guidelines. Serum specimen (specimen) 10/08/2017 12:26 AM EST 10/08/2017 12:35 AM EST [facility] - 10/08/2017 1:32 AM EST A nonreactive final interpretation indicates that anti-HBc antibodies were not detected in the sample; it is possible that the individual is not infected with HBV. Jack Delgado MD LAB BLOOD ORDERABLES Final Result Performing Organization Address [facility] de Phone Number [facility] [address] [facility] * Hepatitis B surface antigen (10/08/2017 12:26 AM EST) Hep B Surface Ag Nonreactive Nonreactive 10/08/2017 1:33 AM EST [facility] Comment:Health Department no tified in accordance with reportable infectious disease guidelines. Serum specimen (specimen) 10/08/2017 12:26 AM EST 10/08/2017 12:35 AM EST [facility] - 10/08/2017 1:33 AM EST Specimen is considered negative for HBsAg. Jack Delgado MD LAB BLOOD ORDERABLES Final Result Performing Organization Address [facility]/State/ZIP Co de Phone Number [facility] [address] * (ABNORMAL) Vitamin D 25 hydroxy (10/08/2017 12:26 AM EST) Vit D, 25-Hydroxy 19.4(L) 30.0 - 100 ng/mL 10/08/2017 9:44 AM EST [facility] Comment: Vitamin D deficiency has been defined by the [place] of [employer] (IOM) and an Endocrine Society [...] guideline. ??JCEM. ??2010; 96(8):1911-30. Serum specimen (specimen) 10/08/2017 12:26 AM EST 10/08/2017 12:35 AM EST Jack Delgado MD LAB BLOOD ORDERABLES Final Result Performing Organization Address City/[facility]/ZIP Co de Phone Number [facility] [address] [facility] * Antibody Screen (10/08/2017 12:26 AM EST) Pathologist [facility] Antibody Screen Positive 10/08/2017 2:01 AM EST [facility] Blood specimen (specimen) 10/08/2017 12:26 AM EST 10/08/2017 12:43 AM EST Narrative [facility] - 10/08/2017 2:55 AM EST Testing performed by [facility] Transfusion Service Jack Delgado MD BLOOD BANK TEST ORDER ASHISH Final Result [facility] [address] [employer] [facility]. [address] * ABO/Rh (10/08/2017 12:26 AM EST) ABO Grouping O 10/08/2017 2:01 AM EST [facility] Rh Type Negative 10/08/2017 2:01 AM EST [facility] Blood specimen (specimen) 10/08/2017 12:26 AM EST 10/08/2017 12:43 AM EST Jack Delgado MD BLOOD BANK TEST ORDER ASHISH Final Result [facility] [address] * (ABNORMAL) Hepatic Function Panel (10/08/2017 12:26 AM EST) Total Bilirubin 5.8(H) 0.0 - 1.5 mg/dL 10/08/2017 1:04 AM EST [facility] Bilirubin, Direct 1.50(H) 0.00 - 0.40 mg/dL 10/08/2017 1:04 AM EST [facility] AST 52(H) 13 - 39 U/L 10/08/2017 1:04 AM EST [facility] ALT 24 7 - 52 U/L 10/08/2017 1:04 AM [facility] Alkaline Phosphatase 148(H) 36 - 125 U/L 10/08/2017 1:04 AM [facility] Total Protein 5.9(L) 6.4 - 8.9 g/dL 10/08/2017 1:04 AM [facility] Albumin 3.0(L) 3.5 - 5.7 g/dL 10/08/2017 1:04 AM [facility] Bilirubin, Indirect 4.30(H) 0.00 - 1.10 mg/dL 10/08/2017 1:04 AM EST [facility] Plasma specimen (specimen) 10/08/2017 12:26 AM EST 10/08/2017 12:35 AM EST Jack Delgado MD LAB BLOOD ORDERABLES Final Result [facility] [address] * (ABNORMAL) Renal Function Panel w/EGFR (10/08/2017 12:26 AM EST) Sodium 142 133 - 146 mmol/L 10/08/2017 1:04 AM [facility] Potassium 4.3 3.5 - 5.3 mmol/L 10/08/2017 1:04 AM [facility] Chloride 109 98 - 110 mmol/L 10/08/2017 1:04 AM [facility] CO2 23 21 - 33 mmol/L 10/08/2017 1:04 AM [facility] Anion Gap 10 3 - 16 mmol/L 10/08/2017 1:04 AM [facility] BUN 21 7 - 25 mg/dL 10/08/2017 1:04 AM [facility] Creatinine 1.57(H) 0.60 - 1.30 mg/dL 10/08/2017 1:04 AM [facility] Glucose 370(H) 70 - 100 mg/dL 10/08/2017 1:04 AM [facility] Calcium 9.9 8.6 - 10.3 mg/dL 10/08/2017 1:04 AM [facility] Phosphorus 2.2 2.1 - 4.7 mg/dL 10/08/2017 1:04 AM [facility] Albumin 3.0(L) 3.5 - 5.7 g/dL 10/08/2017 1:04 AM [facility] Osmolality, Calculated 312(H) 278 - 305 mOsm/kg 10/08/2017 1:04 AM [facility] eGFR AA CKD-EPI 62 See note. 8 1:04 AM [facility] eGFR NONAA CKD-EPI 53 See note. 10/08/2017 1:04 AM [facility] Plasma specimen (specimen) 10/08/2017 12:26 AM EST 10/08/2017 12:35 AM EST [facility] - 10/08/2017 1:04 AM EST As of 10/13/2015 the estimated GFR is [...] equation to estimate glomerular filtration rate. ??Jennifer [employer] Med. 2009:150(9):604-12 Result [facility] Jack Delgado MD LAB BLOOD ORDERABLES Final Result Performing Organization Address [facility] Co de Phone Number [facility] [address] [employer] * Hemoglobin A1c (10/08/2017 12:26 AM EST) Hemoglobin A1C 5.5 4.8 - 6.4 % 10/08/2017 1:03 AM EST [facility] Comment: Hemoglobin (Hb) A1C Normal: ??4.8 - 5.6% Increased Risk for Diabetes: 5.7 - 6.4% Diagnostic Diabetes: ? >/= ?? 6.5% (Drawn on 2 separate occasions) Glycemic Control for Adults with Diabetes: <7.0% (DCCT / NGSP) Whole blood specimen (specimen) 10/08/2017 12:26 AM EST 10/08/2017 12:35 AM EST Jack Delgado MD LAB BLOOD ORDERABLES Final Result Performing Organization Address [facility] de Phone Number [facility] [address] [employer] * (ABNORMAL) APTT, NO ANTICOAGULANT (10/08/2017 12:26 AM EST) aPTT 38.8(H) 25.5 - 35.0 seconds 10/08/2017 1:03 AM EST [facility] Plasma specimen (specimen) 10/08/2017 12:26 AM EST 10/08/2017 12:35 AM EST Jack Delgado MD LAB BLOOD ORDERABLES Final Result Performing Organization Address City/[facility] Co de Phone Number [facility] [address] [place], [place] [address] * (ABNORMAL) Protime-INR (10/08/2017 12:26 AM EST) Protime 18.9(H) 11.8 - 14.8 seconds 10/08/2017 1:02 AM EST [facility] Comment:Effective 07/12/2017 , the PT and PTMIX reference range has changed from 11.6 -14.4 sec to 11.8-14.8 sec. INR 1.6(H) 0.9 - 1.1 10/08/2017 1:02 AM EST [facility] Comment: RECOMMENDED THERAPEUTIC RANGES USING INR : ?Stable oral anticoagulant therapy: ? 2.0 - 3.0 ?Mechanical prosthetic heart valve: ? 2.5 - 3.5 ?Recurrent acute myocardial infarction: ? 2.5 - 3.5 Plasma specimen (specimen) 10/08/2017 12:26 AM EST 10/08/2017 12:35 AM EST Jack Delgado MD LAB BLOOD ORDERABLES Final Result [facility] [address] [place], [place] [address] * (ABNORMAL) Differential (10/08/2017 12:26 AM EST) Neutrophils Relative 60.6 40.0 - 80.0 % 10/08/2017 12:43 AM EST [facility] Lymphocytes Relative 24.5 15.0 - 45.0 % 10/08/2017 12:43 AM EST [facility] Monocytes Relative 10.3 0.0 - 12.0 % 10/08/2017 12:43 AM EST [facility] Eosinophils Relative 4.4 0.0 - 8.0 % 10/08/2017 12:43 AM EST [facility] Basophils Relative 0.2 0.0 - 1.0 % 10/08/2017 12:43 AM [facility] nRBC 0 0 - 0 /100 WBC 10/08/2017 12:43 AM [facility] Neutrophils Absolute 1,636 1,500 - 7,800 /uL 10/08/2017 12:43 AM EST [facility] Lymphocytes Absolute 662(L) 850 - 3,900 /uL 10/08/2017 12:43 AM [facility] Monocytes Absolute 278 200 - 950 /uL 10/08/2017 12:43 AM EST [facility] Eosinophils Absolute 119 15 - 500 /uL 10/08/2017 12:43 AM [facility] Basophils Absolute 5 0 - 200 /uL 10/08/2017 12:43 AM [facility] Whole blood specimen (specimen) 10/08/2017 12:26 AM EST 10/08/2017 12:35 AM EST Jack Delgado MD LAB BLOOD ORDERABLES Final Result [facility] [address] [place] [address], [facility] * (ABNORMAL) CBC (10/08/2017 12:26 AM EST) WBC 2.7(L) 3.8 - 10.8 10E3/uL 10/08/2017 12:43 AM [facility] RBC 2.56(L) 4.20 - 5.80 10E6/uL 10/08/2017 12:43 AM [facility] Hemoglobin 10.1(L) 13.2 - 17.1 g/dL 10/08/2017 12:43 AM [facility] Hematocrit 27.7(L) 38.5 - 50.0 % 10/08/2017 12:43 AM [facility] MCV 108.2(H) 80.0 - 100.0 fL 10/08/2017 12:43 AM [facility] MCH 39.3(H) 27.0 - 33.0 pg 10/08/2017 12:43 AM [facility] MCHC 36.4(H) 32.0 - 36.0 g/dL 10/08/2017 12:43 AM EST [facility] RDW 16.6(H) 11.0 - 15.0 % 10/08/2017 12:43 AM EST [facility] Platelets 129(L) 140 - 400 10E3/uL 10/08/2017 12:43 AM EST [facility] MPV 7.9 7.5 - 11.5 fL 10/08/2017 12:43 AM EST [facility] Whole blood specimen (specimen) 10/08/2017 12:26 AM EST 10/08/2017 12:35 AM EST us Jack Delgado MD LAB BLOOD ORDERABLES Final Result Performing Organization Address City/State/[facility] Co de Phone Number [facility] [address] [place] [address], [facility] * Surgical Pathology Exam (10/08/2017 12:00 AM EST) 10/08/2017 10/09/2017 Narrative [facility] - 10/08/2017 12:00 AM EST CASE: [id number] PATIENT: LEONCIO ROLLINS Clinical History: ?? Transplant liver Pre-Operative Diagnosis: ESLD Post-Operative Diagnosis: ? same Specimen(s) Submitted: ?? A. [place] liver; B. Recipient gallbladder; C. Liver biopsy CPT Code(s): ?? 12845 X 1; 68785 X 1; 98052 X 1; 60447 X 1 Additional Information: FINAL DIAGNOSIS: A. Liver, [place], explant: ? - ??Cirrhosis with mild non-specific septal chronic inflammation and bile ductule proliferation. ? - Moderate steatosis (40% total, 10% macrovesicular, 30% microvesicular) with scattered ballooned hepatocytes and glycogenated nuclei. ? - Gallbladder with chronic cholecystitis and cholelithiasis. ? - Negative for malignancy. ? - See comment. B. Gallbladder, clinically designated recipient , cholecystectomy: ? - Chronic cholecystitis. ? - Three benign lymph nodes. C. Liver, biopsy: ? - Lobules with minimal ischemic type changes (occasional zone 3 acidophil bodies present, less than 1% necrosis). ? - Portal tracts and lobules do not show increased inflammation. ? - Minimal steatosis (less than 5%). ? - No increased fibrosis. Comment (part A): PAS-D, iron, and copper stains are pending and the results will be reported in an addendum. Gross Description: A. ?? Received in formalin labeled Rollins Leoncio and [place] liver , is a 1410 total hepatectomy specimen, including liver (21.0 x 18.0 x 10.0 cm) with attached gallbladder (8.0 x 3.5 x 3.3 cm). The liver capsule is gaytan-brown and diffusely nodular (nodules ranging 0.1 to 1.0 cm). ??The cut surface is gaytan-red to gaytan-brown, diffusely nodular (nodules ranging 0.1 to 0.5 cm) with no discrete lesions grossly identified. ??There is a wire mesh stent (7.5 cm in length x up to 1.0 cm in diameter) extending through the hepatic vein. ??The stent is intact, patent and grossly unremarkable. The serosa of the gallbladder is gaytan-green and smooth. ??The mucosa is gaytan-green and velvety with no discrete lesions grossly identified. ??The wall thickness ranges from 0.1 to 0.2 cm. ??The gallbladder contains dark green viscous bile like material and multiple black-brown irregular granular calculi (ranging 0.5 to 4.5 cm in greatest dimension). ??The cystic duct is grossly obstructed by calculi. ? Separator Operator sections are submitted in [facility]- A1-A8 as follows: ?A1: ??Vasculature and cystic duct resection margins, en face. ?A2-A3: ??Separator Operator sections of right lobe. ?A4: ??Caudate lobe. ?A5: ??Quadrate lobe. ?A6-A7: ??Separator Operator sections of right lobe. A8: ??Separator Operator sections of neck, body, and fundus of gallbladder. (NAVNEET Claire (ASCP)/joyce) B. ?? Received in formalin labeled Leoncio Rollins and recipient gallbladder , is an intact gallbladder (8.5 x 3.5 x 2.0 cm). ??The serosa is pink-gaytan and smooth with focal areas of pinpoint hemorrhage. ??The mucosa is gaytan-red and velvety with no discrete lesions grossly identified. ??The gallbladder wall ranges in thickness from 0.2 to 0.3 cm. ??The gallbladder contains scant amounts of gaytan-red viscous bile like material. ??No discrete calculi are grossly identified within the gallbladder or separately within the same container. ??The cystic duct is free of obstruction. Separator Operator sections are submitted in cassettes [facility] B1 as follows: B1: ??Cystic duct margin, en face, and patient accounting representative sections of neck, body, and fundus. ??(NAVNEET Claire (ASCP)/joyce) C. ?? Received in formalin labeled Leoncio Rollins and liver biopsy , is a single gaytan-brown cylindrical soft tissue (2.0 cm in length x 0.1 cm in diameter). ??The specimen is bisected and submitted entirely in cassettes [facility]-2000 C1-C2 with liver txp written on the side of cassette C1. (NAVNEET Claire (ASCP)/joyce) Microscopic Description: Parts A-C: 15 HE slides examined. Part C: Trichrome stain examined (negative for increased fibrosis). I, the attending pathologist, have personally reviewed all prosector/resident work and pathology slides to determine final diagnosis. Control Materials Reacted Appropriately. Final Diagnosis performed by PEYMAN HAYES M.D. 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 A copper stain shows patchy mild copper deposition within periseptal hepatocytes. A PAS-D stain does not show PAS-D positive globules within hepatocytes. Addendum #1 performed by PEYMAN HAYES M.D. Pathologist Electronically signed 10/16/2017 03:14:36 PM The Pathologist signing this report is located at [facility], [address] [place] [address], [facility] [phone], CLIA ID: [id number] us David Mendenhall MD PATHOLOGY/CYTOLOGY ORDERABLES E dited Result - Final [facility] [address] [facility] [place] [address] * Prepare Fresh Frozen Plasma, 10 Units (10/07/2017 11:03 PM EST) Product Code B9307S85 HCLL Unit Number [id number] HCLL Dispense Status Released from Crossmatch_RE HCLL Blood Expiration Date HCLL Coding System [id number] HCLL Product Code N6570E10 HCLL Unit Number [id number] HCLL Dispense Status Presumed Transfused_PT HCLL Blood Expiration Date HCLL Coding System IBIQ348 HCLL Product Code Z9449N30 HCLL Unit Number [id number] HCLL Dispense Status Presumed Transfused_PT HCLL Blood Expiration Date HCLL Coding System YUBO625 HCLL Product Code S5329P05 HCLL Unit Number [id number] HCLL Dispense Status Presumed Transfused_PT HCLL Blood Expiration Date HCLL Coding System BKGK864 HCLL Product Code P4107U38 HCLL Unit Number [id number] HCLL Dispense Status Presumed Transfused_PT HCLL Blood Expiration Date HCLL Coding System BWIF921 HCLL Product Code C1297K95 HCLL Unit Number [id number] HCLL Dispense Status Presumed Transfused_PT HCLL Blood Expiration Date HCLL Coding System TIOA175 HCLL Product Code B2995E80 HCLL Unit Number [id number] HCLL Dispense Status Released from [employer]match_RE HCLL Blood Expiration Date HCLL Coding System BUOL483 HCLL Product Code B4995D90 HCLL Unit Number [id number] HCLL Dispense Status Released from Crossmatch_RE HCLL Blood Expiration Date HCLL Coding System NXIK560 HCLL Product Code R4948R60 HCLL Unit Number [id number] HCLL Dispense Status Released from Crossmatch_RE HCLL Blood Expiration Date HCLL Coding System QWEF186 HCLL Product Code H5432N72 HCLL Unit Number [id number] HCLL Dispense Status Released from [employer]match_RE HCLL Blood Expiration Date HCLL Coding System MVTM102 HCLL Specimen from blood bag from blood product (specimen) Jack Delgado MD BLOOD BANK PRODUCT OR DERABLES Final Result HC[facility] * Prepare Platelets, leukoreduced, 10 Units (10/07/2017 11:03 PM EST) Product Code J2669Y30 HCLL Unit Number [id number] HCLL Dispense Status Presumed Transfused_PT HCLL Blood Expiration Date [id number] HCLL Coding System NWYZ159 HCLL Specimen from blood bag from blood product (specimen) Jack Delgado MD BLOOD BANK PRODUCT OR DERABLES Final Result [facility] * Prepare RBC, leukoreduced, 10 Units (10/07/2017 11:03 PM EST) Product Code T9632C00 HCLL Unit Number [id number] HCLL Dispense Status Released from Crossmatch_RE HCLL Blood Expiration Date HCLL Coding System JIJR700 HCLL Product Code W3194J64 HCLL Unit Number [id number] HCLL Dispense Status Presumed Transfused_PT HCLL Blood Expiration Date HCLL Coding System FNFX553 HCLL Product Code U1436G36 HCLL Unit Number [id number] HCLL Dispense Status Released from Crossmatch_RE HCLL Blood Expiration Date HCLL Coding System DCTP279 HCLL Product Code E9379H90 HCLL Unit Number [id number] HCLL Dispense Status Presumed Transfused_PT HCLL Blood Expiration Date HCLL Coding System SJXM762 HCLL Product Code N3768C53 HCLL Unit Number [id number] HCLL Dispense Status Released from Crossmatch_RE HCLL Blood Expiration Date HCLL Coding System NGSB866 HCLL Product Code J1288I59 HCLL Unit Number [id number] HCLL Dispense Status Released from Crossmatch_RE HCLL Blood Expiration Date HCLL Coding System PKHZ866 HCLL Product Code T8170B29 HCLL Unit Number [id number] HCLL Dispense Status Released from Crossmatch_RE HCLL Blood Expiration Date HCLL Coding System UNQH516 HCLL Product Code U5649R31 HCLL Unit Number [id number] HCLL Dispense Status Released from Crossmatch_RE HCLL Blood Expiration Date HCLL Coding System PWLY423 HCLL Product Code K6717J69 HCLL Unit Number [id number] HCLL Dispense Status Released from Crossmatch_RE HCLL Blood Expiration Date HCLL Coding System AFRR678 HCLL Product Code X0768J57 HCLL Unit Number [id number] HCLL Dispense Status Released from Crossmatch_RE HCLL Blood Expiration Date HCLL Coding System EMYL309 HCLL Specimen from blood bag from blood product (specimen) us Jack Delgado MD BLOOD BANK PRODUCT OR DERABLES Final Result HC[facility] * PERFUSION RECORD - SCAN (10/07/2017 12:00 AM EST) us Scanning [facility] SCAN DOCS - NO RESULTS Final Res ult * LAB (10/07/2017 12:00 AM EST) us Scanning [facility] NURSING INFORMATIONAL/COMMUNICAT ION ORDERABLES Final Result * EKG - SCAN (10/07/2017 12:00 AM EST) us Scanning [facility] SCAN DOCS - NO RESULTS Final Res ult documented in this encounter Visit Diagnoses Diagnosis Liver transplant candidate- Primary Liver transplant candidate Encephalopathy Unspecified encephalopathy Immunosuppression (CMS-HCC) Liver transplanted (CMS-HCC) Liver replaced by transplant Fever, unspecified fever cause Hypoxia Hypoxemia Liver transplanted (CMS-HCC) Liver replaced by transplant documented in this encounter Administered Medications Inactive Administered Medications - up to 3 most recent administrations Medication Order MAR Action Action Date Dose Rate Site acetaminophen (TYLENOL) tablet 650 mg 650 mg, Oral, Once, On Mon10/09/17 at 1730, For 1 dose, 30 minutes prior to Thymoglobulin. Given 10/09/2017 5:33 PM EST 650 mg acetaminophen (TYLENOL) tablet 650 mg 650 mg, Oral, Every 6 hours PRN, Headaches, Starting on Mon10/25/17 at 0737, Maximum dose of acetaminophen is 4000 mg (4 grams) from all sources in 24 hours. Given 10/25/2017 8:26 PM EDT 650 mg Given 10/25/2017 8:13 AM EDT 650 mg antithymocyte globulin (rabbit) 1.5 mg/kg = 175 mg, heparin (porcine) 1,000 Units, hydrocortisone sod succ (PF) (SOLU-CORTEF) 25 mg in sodium chloride 0.9 % 500 mL IVPB 175 mg (rounded from 174.15 mg = 1.5 mg/kg ? 116.1 kg), Intravenous, Administer over 24 Hours, Once, On Mon10/09/17 at 1800, For 1 dose, Infuse over 6 hours For peripheral or central line via 0.22 micron filter. One complete bag of Thymoglobulin should be infused per order, unless directed otherwise. A second bag is not to be hung without a separate order. New Bag 10/09/2017 6:53 PM EST 175 mg 20.8 mL/hr aspirin chewable tablet 81 mg 81 mg, Oral, Daily with breakfast, First dose on Mon10/09/17 at 1400 Given 10/27/2017 8:52 AM EDT 81 mg Given 10/26/2017 9:26 AM EDT 81 mg Given 10/25/2017 8:12 AM EDT 81 mg calcium carbonate (TUMS) chewable tablet 500 mg 500 mg, Oral, 3 times daily PRN, Indigestion, Heartburn, Starting on Mon10/27/17 at 1051 Given 10/27/2017 3:12 PM EDT 5 00 mg Given 10/27/2017 11:47 AM EDT 500 mg carvedilol (COREG) tablet 12.5 mg 12.5 mg, Oral, 2 times daily with meals, First dose on Mon10/10/17 at 0830 Given 10/10/2017 8:27 AM EST 12.5 mg carvedilol (COREG) tablet 25 mg 25 mg, Oral, 2 times daily, First dose on Mon10/12/17 at 2100 Given 10/16/2017 8:52 AM EST 25 mg Given 10/15/2017 8:38 PM EST 25 mg Given 10/15/2017 9:06 AM EST 25 mg carvedilol (COREG) tablet 37.5 mg 37.5 mg, Oral, 2 times daily, First dose (after last modification) on Mon10/16/17 at 2100 Given 10/23/2017 8:26 PM EDT 37.5 mg Given 10/23/2017 8:49 AM EDT 37.5 mg Given 10/22/2017 8:22 PM EDT 37.5 mg carvedilol (COREG) tablet 50 mg 50 mg, Oral, 2 times daily, First dose (after last modification) on Mon10/24/17 at 0900 Given 10/27/2017 8:52 AM EDT 50 mg Given 10/26/2017 9:05 PM EDT 50 mg Given 10/26/2017 9:27 AM EDT 50 mg cloNIDine HCl (CATAPRES) tablet 0.1 mg 0.1 mg, Oral, 2 times daily, First dose on Bobbi 10/12/17 at 1100 Given 10/27/2017 8:52 AM EDT 0.1 mg Given 10/26/2017 9:06 PM EDT 0.1 mg Given 10/26/2017 9:26 AM EDT 0.1 mg cycloSPORINE modified ((NEORAL/GENGRAF)) capsule 200 mg 200 mg, Oral, Two times a day, First dose (after last modification) on Mon10/25/17 at 1900, LEVEL 2 HAZARDOUS MEDICATION Given 10/27/2017 6:22 AM EDT 200 mg Given 10/26/2017 6:39 PM EDT 200 mg Given 10/26/2017 6:47 AM EDT 200 mg cycloSPORINE modified (NEORAL/GENGRAF) capsule 150 mg 150 mg, Oral, Two times a day, First dose on Mon10/23/17 at 1000, LEVEL 2 HAZARDOUS MEDICATION Given 10/25/2017 8:25 AM EDT 150 mg Given 10/24/2017 8:21 PM EDT 150 mg Given 10/24/2017 7:24 AM EDT 150 mg dextrose 50 % in water (D50W) iv Syrg 25-50 mL 25-50 mL, Intravenous, Every 15 min PRN, for blood glucose less than 70mg/dL that can not be corrected orally or via feeding tube.?See admin instructions for details., Starting on Bobbi 10/12/17 at 1056, If glucose < 70 and alert but can not be corrected, orally or via feeding tube, give ?? amp (25 ml) D50W. Recheck blood sugar in 15 minutes and repeat treatment if glucose still < 70. If not alert and glucose < 70 give 1 amp (50 ml) D50W. Recheck glucose in 15 minutes and repeat treatment if glucose still < 70. dextrose 50 % in water (D50W) iv Syrg 50 mL 50 mL, Intravenous, Once, On Mon10/24/17 at 1730, For 1 dose Given 10/24/2017 7:38 PM EDT 50 mLs diphenhydrAMINE (BENADRYL) capsule 25 mg 25 mg, Oral, Once, On Mon10/09/17 at 1730, For 1 dose, 30 minutes prior to Thymoglobulin. Given 10/09/2017 5:33 PM EST 25 mg electrolyte-R (pH 7.4) (NORMOSOL-R pH 7.4) iv solution SolP 500 mL 500 mL, Intravenous, Once, On Mon10/10/17 at 0330, For 1 dose Bolus from Bag 10/10/2017 3:16 AM EST 500 mLs electrolyte-R (pH 7.4) (NORMOSOL-R pH 7.4) iv solution SolP 100 mL/hr, Intravenous, Continuous, Starting on Mon10/09/17 at 0930 New Bag 10/11/2017 3:45 AM EST 100 mL/hr 100 mL/hr New Bag 10/09/2017 10:20 PM EST 100 mL/hr 100 mL/hr Rate/Dose Change 10/09/2017 2:15 PM EST 100 mL/hr 100 mL/ hr entecavir (BARACLUDE) 0.05 mg/mL solution 0.5 mg 0.5 mg, Oral, Daily6, First dose on Mon10/08/17 at 1430, Administer on an empty stomach. Do not dilute or mix oral solution with water or other beverages. LEVEL 2 HAZARDOUS MEDICATION Given 10/11/2017 5:09 AM EST 0.5 mg Given 10/10/2017 5:16 AM EST 0.5 mg Given 10/09/2017 6:08 AM EST 0.5 mg entecavir (BARACLUDE) tablet 0.5 mg 0.5 mg, Oral, Daily6, First dose on Mon10/12/17 at 0600, ADMINISTER ON EMPTY STOMACH (2 HOURS BEFORE OR AFTER MEALS). LEVEL 2 HAZARDOUS MEDICATION Given 10/13/2017 7:45 AM EST 0.5 mg Given 10/12/2017 6:30 AM EST 0.5 mg entecavir (BARACLUDE) tablet 1 mg 1 mg, Oral, Daily6, First dose (after last modification) on [facility] 10/14/17 at 0600, ADMINISTER ON EMPTY STOMACH (2 HOURS BEFORE OR AFTER MEALS). LEVEL 2 HAZARDOUS MEDICATION Given 10/27/2017 6:22 AM EDT 1 mg Given 10/26/2017 6:47 AM EDT 1 mg Given 10/25/2017 6:59 AM EDT 1 mg esmolol (BREVIBLOC) infusion 20 mg/mL 100 mL 10-300 mcg/kg/min ? 116.1 kg (3.483-104.49 mL/hr, rounded to 3.5-104.5 mL/hr), Intravenous, Continuous, Starting on Mon10/10/17 at 0530, Titrate to: SBP 160 by A-line pressure [facility] Telemetry Monitoring Required, do not discontinue [facility]. Rate/Dose Change 10/12/2017 10:11 PM EST 25 mcg/kg/min 8.7 mL/hr New Bag 10/12/2017 9:21 PM EST 50 mcg/kg/min 17.4 mL/hr Rate/Dose Change 10/12/2017 6:41 PM EST 50 mcg/kg/min 17.4 mL/hr fentaNYL (SUBLIMAZE) 2,000 mcg in sodium chloride 0.9% 200 mL infusion 25-200 mcg/hr (2.5-20 mL/hr), Intravenous, Continuous, Starting on Mon10/08/17 at 1500, Call MD if infusion reaches 200 mcg/hr. HIGH ALERT MEDICATION, Goal OPAS: <5 Handoff 10/09/2017 7:28 AM EST 100 mcg/hr 10 mL/hr Rate/Dose Change 10/09/2017 12:53 AM EST 100 mcg/hr 10 mL/ hr Rate/Dose Change 10/08/2017 9:07 PM EST 50 mcg/hr 5 mL/hr fentaNYL (SUBLIMAZE) injection 12.5 mcg 12.5 mcg, Intravenous, Every 2 hour PRN, moderate pain (NRS-4-6), severe pain (NRS 7-10), Starting on Mon10/10/17 at 0937, HIGH ALERT MEDICATION Given 10/11/2017 9:56 AM EST 12.5 mcg Given 10/10/2017 2:30 PM EST 12.5 mcg fentaNYL (SUBLIMAZE) injection 50 mcg 50 mcg, Intravenous, Once, On Mon10/08/17 at 1930, For 1 dose, If on IV and PO pain medications, use IV if patient cannot tolerate oral. HIGH ALERT MEDICATION Given 10/08/2017 7:24 PM EST 50 mcg furosemide (LASIX) 10 mg/mL injection Starting on 10/15/17 at 0703, For 1 dose, Gem Sánchez: cabinet override furosemide (LASIX) injection 40 mg 40 mg, Intravenous, Once, On Bobbi 10/12/17 at 1500, For 1 dose, Give doses of 100mg or less over 5 minutes. For doses over 100mg, give at rate of up to 20mg/min. Given 10/12/2017 3:01 PM EST 40 mg furosemide (LASIX) injection 40 mg 40 mg, Intravenous, Once, On Mon10/16/17 at 0700, For 1 dose Given 10/16/2017 8:52 AM EST 40 mg furosemide (LASIX) injection 40 mg 40 mg, Intravenous, Once, On Bobbi 10/19/17 at 0900, For 1 dose, PLEASE GIVE AFTER 2 UNITS OF BLOOD Give doses of 100mg or less over 5 minutes. For doses over 100mg, give at rate of up to 20mg/min. Given 10/19/2017 3:32 PM EST 40 mg furosemide (LASIX) injection 40 mg 40 mg, Intravenous, Once, On Mon10/19/17 at 1700, For 1 dose, Give doses of 100mg or less over 5 minutes. For doses over 100mg, give at rate of up to 20mg/min. Given 10/19/2017 9:48 PM EST 40 mg furosemide (LASIX) injection 40 mg 40 mg, Intravenous, Once, On Mon10/23/17 at 1000, For 1 dose, Give doses of 100mg or less over 5 minutes. For doses over 100mg, give at rate of up to 20mg/min. Given 10/23/2017 12:06 PM EDT 40 mg furosemide (LASIX) injection 40 mg 40 mg, Intravenous, Once, On Mon10/24/17 at 1500, For 1 dose, Give doses of 100mg or less over 5 minutes. For doses over 100mg, give at rate of up to 20mg/min. Given 10/24/2017 4:26 PM EDT 40 mg furosemide (LASIX) injection 40 mg 40 mg, Intravenous, Once, On Mon10/25/17 at 0930, For 1 dose, Give doses of 100mg or less over 5 minutes. For doses over 100mg, give at rate of up to 20mg/min. Given 10/25/2017 10:14 AM EDT 40 mg furosemide (LASIX) injection 40 mg 40 mg, Intravenous, Once, On Bobbi 10/26/17 at 1030, For 1 dose, Give doses of 100mg or less over 5 minutes. For doses over 100mg, give at rate of up to 20mg/min. Given 10/26/2017 11:44 AM EDT 40 mg furosemide (LASIX) injection 60 mg 60 mg, Intravenous, Once, On Mon10/11/17 at 1130, For 1 dose, Give doses of 100mg or less over 5 minutes. For doses over 100mg, give at rate of up to 20mg/min. Given 10/11/2017 12:00 PM EST 60 mg furosemide (LASIX) injection 60 mg 60 mg, Intravenous, Once, On 10/14/17 at 0930, For 1 dose, Give doses of 100mg or less over 5 minutes. For doses over 100mg, give at rate of up to 20mg/min. Given 10/14/2017 9:34 AM EST 60 mg furosemide (LASIX) injection 80 mg 80 mg, Intravenous, Once, On 10/15/17 at 0700, For 1 dose, Give doses of 100mg or less over 5 minutes. For doses over 100mg, give at rate of up to 20mg/min. Given 10/15/2017 7:05 AM EST 80 mg gabapentin (NEURONTIN) capsule 100 mg 100 mg, Oral, 3 times daily, First dose on Mon10/09/17 at 1530 Given 10/11/2017 8:01 AM EST 100 mg Given 10/10/2017 8:13 PM EST 100 mg Given 10/10/2017 3:46 PM EST 100 mg gabapentin (NEURONTIN) capsule 600 mg 600 mg, Oral, 3 times daily, First dose (after last modification) on Mon10/11/17 at 1300 Given 10/27/2017 3:25 PM EDT 600 mg Given 10/27/2017 8:51 AM EDT 600 mg Given 10/26/2017 9:05 PM EDT 600 mg glucose chewable tablet 12 g 12 g, Oral, Every 15 min PRN, Low blood sugar, for blood glucose less than 70mg/dL. May also give 4 oz fruit juice, 4 oz regular soda, or 8 oz nonfat milk.?See Admin instructions for details., Starting on 10/15/17 at 2119, If glucose is between 50 -70, give [...] If glucose < 70 and alert but can not be corrected, orally or via feeding tube, give ?? amp (25 ml) D50W. Recheck blood sugar in 15 minutes and repeat treatment if glucose still < 70. If not alert and glucose < 70 give 1 amp (50 ml) D50W. Recheck glucose in 15 minutes and repeat treatment if glucose still < 70. DO NOT ADMINISTER VIA FEEDING TUBE heparin (porcine) injection 5,000 Units 5,000 Units, Subcutaneous, Every 8 hours scheduled (3 times per day), First dose on Mon10/09/17 at 1300 Given 10/27/2017 8:52 AM EDT 5,000 Units Right Arm Given 10/27/2017 1:03 AM EDT 5,000 Units L eft Arm Given 10/26/2017 5:29 PM EDT 5,000 Units R ight Arm hydrALAZINE (APRESOLINE) 20 mg/mL injection 10 mg 10 mg, Intravenous, Once, On 10/08/17 at 0700, For 1 dose, Pre-op Given 10/08/2017 6:56 AM EST 10 mg hydrALAZINE (APRESOLINE) 20 mg/mL injection 10 mg 10 mg, Intravenous, Once, On 10/08/17 at 1500, For 1 dose, Pre-op Given 10/08/2017 2:49 PM EST 10 mg hydrALAZINE (APRESOLINE) 20 mg/mL injection 10 mg 10 mg, Intravenous, Once, On 10/08/17 at 1530, For 1 dose Given 10/08/2017 3:59 PM EST 10 mg hydrALAZINE (APRESOLINE) 20 mg/mL injection 10 mg 10 mg, Intravenous, Once, On Bobbi 10/12/17 at 1830, For 1 dose Given 10/12/2017 6:29 PM EST 10 mg hydrALAZINE (APRESOLINE) 20 mg/mL injection 10 mg 10 mg, Intravenous, Once, On Bobbi 10/12/17 at 2000, For 1 dose Given 10/12/2017 8:04 PM EST 10 mg hydrALAZINE (APRESOLINE) 20 mg/mL injection 20 mg 20 mg, Intravenous, Every 4 hours PRN, Other, Starting on 10/08/17 at 1549, SBP > 160 Given 10/16/2017 5:08 AM EST 2 0 mg Given 10/10/2017 2:13 AM EST 20 mg Given 10/09/2017 6:22 PM EST 20 mg hydrALAZINE (APRESOLINE) tablet 10 mg 10 mg, Oral, Every 8 hours scheduled (3 times per day), First dose on Bobbi 10/26/17 at 1300 Given 10/27/2017 3:12 PM EDT 10 mg Given 10/27/2017 6:22 AM EDT 10 mg Given 10/26/2017 9:06 PM EDT 10 mg hydrALAZINE (APRESOLINE) tablet 10 mg 10 mg, Oral, Once, On Bobbi 10/26/17 at 0900, For 1 dose Given 10/26/2017 9:28 AM EDT 10 mg ibuprofen (ADVIL,MOTRIN) tablet 400 mg 400 mg, Oral, Once, On 10/14/17 at 1030, For 1 dose Given 10/14/2017 11:25 AM EST 400 mg insulin lispro (humaLOG) injection 0-10 Units 0-10 Units, Subcutaneous, At Bedtime (2100), First dose on 10/15/17 at 2130, For patients eating discrete meals: humaLOG insulin High Dose correction for patients requiring greater than 80 units/day. Given 10/27/2017 1:04 AM EDT 5 Units Left Arm Given 10/25/2017 11:57 PM EDT 2 Units L eft Arm Given 10/23/2017 11:25 PM EDT 2 Units L eft Arm insulin lispro (humaLOG) injection 0-12 Units 0-12 Units, Subcutaneous, 3 times daily before meals, First dose on Bobbi 10/12/17 at 1630, For patients eating discrete meals: humaLOG insulin High Dose correction for patients requiring greater than 80 units/day. Given 10/27/2017 11:49 AM EDT 7 Units Left Arm Given 10/27/2017 9:03 AM EDT 4 Units Le ft Arm Given 10/26/2017 6:39 PM EDT 10 Units Ri ght Arm insulin lispro (humaLOG) injection 10 Units 10 Units, Subcutaneous, 3 times daily with meals, First dose (after last modification) on 10/21/17 at 1700, HIGH ALERT MEDICATION Onset of action is rapid. Give dose 5-10 minutes before meal. Have meal at bedside. Given 10/22/2017 6:37 PM EDT 10 Units Right Arm Given 10/22/2017 1:57 PM EDT 10 Units Ri ght Arm Given 10/22/2017 8:23 AM EDT 10 Units Ri ght Arm insulin lispro (humaLOG) injection 12 Units 12 Units, Subcutaneous, Once, On Bobbi 10/26/17 at 1700, For 1 dose, HIGH ALERT MEDICATION Onset of action is rapid. Give dose 5-10 minutes before meal. Have meal at bedside. Given 10/26/2017 5:27 PM EDT 12 Units Right Arm insulin lispro (humaLOG) injection 15 Units 15 Units, Subcutaneous, 3 times daily with meals, First dose (after last modification) on 10/23/17 at 0800, HIGH ALERT MEDICATION Onset of action is rapid. Give dose 5-10 minutes before meal. Have meal at bedside. Given 10/25/2017 8:25 AM EDT 15 Units Right Arm Given 10/24/2017 8:18 PM EDT 15 Units Ri ght Arm Given 10/24/2017 4:17 PM EDT 15 Units Le ft Arm insulin lispro (humaLOG) injection 5 Units 5 Units, Subcutaneous, 3 times daily with meals, First dose on Mon10/18/17 at 0900, HIGH ALERT MEDICATION Onset of action is rapid. Give dose 5-10 minutes before meal. Have meal at bedside. Given 10/20/2017 8:21 PM EST 5 Units Left Arm Given 10/20/2017 2:10 PM EST 5 Units Le ft Arm Given 10/20/2017 9:19 AM EST 5 Units Le ft Arm insulin lispro (humaLOG) injection 7 Units 7 Units, Subcutaneous, 3 times daily with meals, First dose (after last modification) on 10/21/17 at 0800, HIGH ALERT MEDICATION Onset of action is rapid. Give dose 5-10 minutes before meal. Have meal at bedside. Given 10/21/2017 1:07 PM EST 7 Units Right Arm Given 10/21/2017 8:45 AM EST 7 Units Ri ght Arm insulin NPH (HumuLIN N) injection 10 Units 10 Units, Subcutaneous, Once, On Mon10/26/17 at 1500, For 1 dose, Do not hold medication unless instructed by provider. HIGH ALERT MEDICATION Given 10/26/2017 3:02 PM EDT 10 Units Right Arm insulin NPH (HumuLIN N) injection 10 Units 10 Units, Subcutaneous, Once, On Mon10/26/17 at 1700, For 1 dose, Do not hold medication unless instructed by provider. HIGH ALERT MEDICATION Given 10/26/2017 5:28 PM EDT 10 Units Right Arm insulin NPH (HumuLIN N) injection 10 Units 10 Units, Subcutaneous, Once, On Mon10/27/17 at 1000, For 1 dose, Do not hold medication unless instructed by provider. HIGH ALERT MEDICATION Given 10/27/2017 11:51 AM EDT 10 Units Left Arm insulin NPH (HumuLIN N) injection 20 Units 20 Units, Subcutaneous, At Bedtime (2099), First dose (after last modification) on Mon10/24/17 at 2100, Do not hold medication unless instructed by provider. HIGH ALERT MEDICATION Given 10/24/2017 11:33 PM EDT 20 Units Abdominal Tissue insulin NPH (HumuLIN N) injection 30 Units 30 Units, Subcutaneous, At Bedtime (2099), First dose (after last modification) on Mon10/19/17 at 2100, Do not hold medication unless instructed by provider. HIGH ALERT MEDICATION Given 10/20/2017 10:02 PM EST 30 Units Left Arm Given 10/19/2017 10:07 PM EST 30 Units L eft Arm insulin NPH (HumuLIN N) injection 30 Units 30 Units, Subcutaneous, At Bedtime (2099), First dose (after last modification) on Mon10/23/17 at 2100, Do not hold medication unless instructed by provider. HIGH ALERT MEDICATION Given 10/23/2017 8:52 PM EDT 30 Units Left Arm insulin NPH (HumuLIN N) injection 30 Units 30 Units, Subcutaneous, Every morning, First dose on Mon10/27/17 at 0900, Do not hold medication unless instructed by provider. HIGH ALERT MEDICATION Given 10/27/2017 9:04 AM EDT 30 Units Left Arm insulin NPH (HumuLIN N) injection 35 Units 35 Units, Subcutaneous, 2 times daily, First dose on Mon10/12/17 at 1100, Do not hold medication unless instructed by provider. HIGH ALERT MEDICATION Given 10/12/2017 12:04 PM EST 35 Units Right Arm insulin NPH (HumuLIN N) injection 35 Units 35 Units, Subcutaneous, At Bedtime (2099), First dose (after last modification) on Mon10/21/17 at 2100, Do not hold medication unless instructed by provider. HIGH ALERT MEDICATION Given 10/21/2017 9:29 PM EST 35 Units Abdominal Tissue insulin NPH (HumuLIN N) injection 40 Units 40 Units, Subcutaneous, At Bedtime (2099), First dose (after last modification) on Mon10/17/17 at 2100, Do not hold medication unless instructed by provider. HIGH ALERT MEDICATION Given 10/18/2017 11:04 PM EST 40 Units Abdominal Tissue Given 10/17/2017 9:44 PM EST 40 Units Ot her insulin NPH (HumuLIN N) injection 40 Units 40 Units, Subcutaneous, At Bedtime (2099), First dose (after last modification) on Mon10/22/17 at 2100, Do not hold medication unless instructed by provider. HIGH ALERT MEDICATION Given 10/22/2017 8:29 PM EDT 40 Units Abdominal Tissue insulin NPH (HumuLIN N) injection 5 Units 5 Units, Subcutaneous, Once, On Mon10/16/17 at 1100, For 1 dose, Do not hold medication unless instructed by provider. HIGH ALERT MEDICATION Given 10/16/2017 11:10 AM EST 5 Units Abdominal Tissue insulin NPH (HumuLIN N) injection 50 Units 50 Units, Subcutaneous, 2 times daily, First dose (after last modification) on Mon10/12/17 at 2100, Do not hold medication unless instructed by provider. HIGH ALERT MEDICATION Given 10/14/2017 8:00 PM EST 50 Units Right Arm Given 10/14/2017 8:06 AM EST 50 Units Ri ght Arm Given 10/13/2017 8:20 PM EST 50 Units Ri ght Arm insulin NPH (HumuLIN N) injection 50 Units 50 Units, Subcutaneous, At Bedtime (2099), First dose (after last modification) on Mon10/15/17 at 2100, Do not hold medication unless instructed by provider. HIGH ALERT MEDICATION Given 10/15/2017 8:39 PM EST 50 Units Abdominal Tissue insulin NPH (HumuLIN N) injection 50 Units 50 Units, Subcutaneous, At Bedtime (2099), First dose (after last modification) on Mon10/16/17 at 2100, Do not hold medication unless instructed by provider. HIGH ALERT MEDICATION Given 10/16/2017 9:52 PM EST 50 Units Abdominal Tissue insulin NPH (HumuLIN N) injection 55 Units 55 Units, Subcutaneous, Every morning, First dose (after last modification) on Mon10/15/17 at 0900, Do not hold medication unless instructed by provider. HIGH ALERT MEDICATION Given 10/15/2017 9:07 AM EST 55 Units Left Arm insulin NPH (HumuLIN N) injection 60 Units 60 Units, Subcutaneous, Every morning, First dose (after last modification) on Mon10/16/17 at 0900, Do not hold medication unless instructed by provider. HIGH ALERT MEDICATION Given 10/16/2017 8:52 AM EST 60 Units Abdom inal Tissue insulin NPH (HumuLIN N) injection 65 Units 65 Units, Subcutaneous, Every morning, First dose (after last modification) on Mon10/17/17 at 0900, Do not hold medication unless instructed by provider. HIGH ALERT MEDICATION Given 10/17/2017 9:01 AM EST 65 Units Left Arm insulin NPH (HumuLIN N) injection 65 Units 65 Units, Subcutaneous, Every morning, First dose (after last modification) on Mon10/18/17 at 0900, Do not hold medication unless instructed by provider. HIGH ALERT MEDICATION Given 10/18/2017 9:05 AM EST 65 Units Abdom inal Tissue insulin NPH (HumuLIN N) injection 65 Units 65 Units, Subcutaneous, Every morning, First dose (after last modification) on Mon10/19/17 at 0900, Do not hold medication unless instructed by provider. HIGH ALERT MEDICATION Given 10/19/2017 10:01 AM EST 65 Units Abdominal Tissue insulin NPH (HumuLIN N) injection 65 Units 65 Units, Subcutaneous, Every morning, First dose (after last modification) on Mon10/20/17 at 0900, Do not hold medication unless instructed by provider. HIGH ALERT MEDICATION Given 10/20/2017 9:15 AM EST 65 Units Left Arm insulin NPH (HumuLIN N) injection 65 Units 65 Units, Subcutaneous, Every morning, First dose (after last modification) on Mon10/21/17 at 0900, Do not hold medication unless instructed by provider. HIGH ALERT MEDICATION Given 10/21/2017 8:45 AM EST 65 Units Right Arm insulin NPH (HumuLIN N) injection 75 Units 75 Units, Subcutaneous, Every morning, First dose (after last modification) on Mon10/22/17 at 0900, Do not hold medication unless instructed by provider. HIGH ALERT MEDICATION Given 10/23/2017 9:32 AM EDT 75 Units Left Arm Given 10/22/2017 8:22 AM EDT 75 Units Ri ght Arm insulin NPH (HumuLIN N) injection 75 Units 75 Units, Subcutaneous, Every morning, First dose (after last modification) on Mon10/24/17 at 0900, Do not hold medication unless instructed by provider. HIGH ALERT MEDICATION Given 10/24/2017 9:43 AM EDT 75 Units Left Arm insulin NPH (HumuLIN N) injection 75 Units 75 Units, Subcutaneous, Every morning, First dose (after last modification) on Mon10/25/17 at 0900, Do not hold medication unless instructed by provider. HIGH ALERT MEDICATION Given 10/25/2017 8:26 AM EDT 75 Units Right Arm insulin regular (HumuLIN R) 1 Units/mL in sodium chloride 0.9 % 100 mL infusion 0.5-28 Units/hr (0.5-28 mL/hr), Intravenous, Continuous, Starting on Mon10/08/17 at 1400, Titrate per Insulin Infusion Protocol. HIGH ALERT MEDICATIONIndications:Live r transplant candidate New Bag 10/12/2017 10:37 AM EST 7 Units/hr 7 mL/hr Restarted 10/12/2017 7:15 AM EST 4 Units/hr 4 mL/hr Rate/Dose Change 10/12/2017 4:21 AM EST 5 Units/hr 5 mL/hr insulin regular (HumuLIN R) injection 10 Units 10 Units, Intravenous, Once, On Mon10/24/17 at 1730, For 1 dose, HIGH ALERT MEDICATION Given 10/24/2017 7:23 PM EDT 10 Units ipratropium-albuterol (DUO-NEB) 0.5 mg-3 mg(2.5 mg base)/3 mL nebulizer solution 3 mL 3 mL, Nebulization, RT every 4 hours PRN, Wheezing, Shortness of Breath, Starting on 10/23/17 at 1001 labetalol (NORMODYNE,TRANDATE) 5 mg/mL injection Starting on 10/08/17 at 0623, For 1 dose, JEN PISANO: cabinet override [facility] Telemetry Monitoring required when administered. labetalol (NORMODYNE,TRANDATE) injection 10 mg 10 mg, Intravenous, Every 4 hours PRN, High Blood Pressure, BP > 180, Starting on 10/09/17 at 1227, [facility] Telemetry Monitoring required when administered. Given 10/16/2017 7:09 AM EST 10 mg Given 10/12/2017 7:05 PM EST 10 mg Given 10/10/2017 3:48 AM EST 10 mg labetalol (NORMODYNE,TRANDATE) injection 20 mg 20 mg, Intravenous, Once, On 10/09/17 at 1530, For 1 dose, [facility] Telemetry Monitoring required when administered. Given 10/09/2017 4:17 PM EST 20 mg labetalol (NORMODYNE,TRANDATE) injection 5 mg 5 mg, Intravenous, As needed, High Blood Pressure, Give PRN q10min to get DBP less than 90, Starting on 10/08/17 at 0624, [facility] Telemetry Monitoring required when administered., Pre-op Given 10/08/2017 6:37 AM EST 5 mg Given 10/08/2017 6:24 AM EST 5 mg lidocaine (LIDODERM) 5 % 1 patch 1 patch, Transdermal, Every 24 hours, First dose on 10/23/17 at 1030, LEAVE PATCH ON FOR 12 HOURS,THEN REMOVE FOR 12 HOURS. Patch Applied 10/27/2017 10:01 AM EDT 1 patch Oth er Patch Applied 10/26/2017 2:00 PM EDT 1 patch Other Patch Applied 10/25/2017 5:20 PM EDT 1 patch Other lidocaine (LIDODERM) 5 % 1 patch 1 patch, Transdermal, Every 24 hours, First dose on Bobbi 10/26/17 at 2300, LEAVE PATCH ON FOR 12 HOURS,THEN REMOVE FOR 12 HOURS. Patch Applied 10/26/2017 10:26 PM EDT 1 patch Other lidocaine 10 mg/mL (1 %) injection 1 mL 1 mL, Subcutaneous, Once, On Mon10/10/17 at 1130, For 1 dose, Please have at bedside -- local to place stitch Given 10/10/2017 11:34 AM EST 1 mL Abdominal Tissue magnesium sulfate in D5W 100 mL 1 gram/100 mL IVPB 1 g 1 g, Intravenous, Administer over 60 Minutes, Every hour, First dose on Mon10/08/17 at 2130, For 1 hour, Nursin - 1 gram bags each infused over 1 hour to equal 2 gram dose New Bag 10/08/2017 9:29 PM EST 1 g 100 mL/hr magnesium sulfate in D5W 100 mL 1 gram/100 mL IVPB 1 g 1 g, Intravenous, Administer over 60 Minutes, Every hour, First dose on Mon10/08/17 at 2230, For 1 hour, Nursin - 1 gram bags each infused over 1 hour to equal 2 gram dose New Bag 10/08/2017 10:33 PM EST 1 g 100 mL/hr magnesium sulfate in sterile water 100 mL IVPB 4 g 4 g, Intravenous, at 25 mL/hr, Once, On Mon10/25/17 at 1100, For 1 dose New Bag 10/25/2017 3:34 PM EDT 4 g 25 mL/hr melatonin Tab 3 mg 3 mg, Oral, At Bedtime (2100), First dose on Mon10/11/17 at 2100, FOR INSOMNIA Given 10/24/2017 8:20 PM EDT 3 mg Given 10/23/2017 8:27 PM EDT 3 mg Given 10/22/2017 8:23 PM EDT 3 mg melatonin Tab 3 mg 3 mg, Oral, Once, On Mon10/25/17 at 0000, For 1 dose, FOR INSOMNIA Given 10/24/2017 11:41 PM EDT 3 mg melatonin Tab 6 mg 6 mg, Oral, At Bedtime (2100), First dose (after last modification) on Mon10/25/17 at 2100, FOR INSOMNIA Given 10/26/2017 9:05 PM EDT 6 mg Given 10/25/2017 8:15 PM EDT 6 mg methocarbamol (ROBAXIN) tablet 500 mg 500 mg, Oral, Once, On Mon10/18/17 at 0030, For 1 dose Given 10/18/2017 6:27 AM EST 500 mg methylPREDNISolone sod suc(PF) (SOLU-medrol) 250 mg in sodium chloride 0.9 % 100 mL IVPB 250 mg, Intravenous, at 200 mL/hr, Once, On Mon10/09/17 at 0900, For 1 dose, POD #1 - Dose, Post-opIndications:Liver transplant candidate New Bag 10/09/2017 8:05 AM EST 250 mg 200 mL/hr methylPREDNISolone sod suc(PF) (SOLU-medrol) SolR 125 mg 125 mg, Intravenous, Once, On Mon10/10/17 at 0900, For 1 dose, POD #2 - Dose. Mix until dissolved and use immediately. MIX [id number] PRIOR TO ADMINISTRATION., Post-opIndications:Liver transplant candidate Given 10/10/2017 8:00 AM EST 125 mg methylPREDNISolone sod suc(PF) (SOLU-medrol) SolR 50 mg 50 mg, Intravenous, Once, On Mon10/12/17 at 0900, For 1 dose, POD #4 - Dose. Mix until dissolved and use immediately. MIX THOROUGHLY PRIOR TO ADMINISTRATION., Post-opIndications:Liver transplant candidate Given 10/12/2017 8:01 AM EST 50 mg methylPREDNISolone sod suc(PF) (SOLU-medrol) SolR 60 mg 60 mg, Intravenous, Once, On Mon10/11/17 at 0900, For 1 dose, POD # 3 - Dose. Mix until dissolved and use immediately. MIX THOROUGHLY PRIOR TO ADMINISTRATION., Post-opIndications:Liver transplant candidate Given 10/11/2017 8:01 AM EST 60 mg metoprolol tartrate (LOPRESSOR) injection 10 mg 10 mg, Intravenous, Every 6 hours, First dose (after last modification) on Mon10/09/17 at 2200, CMU Telemetry Monitoring Required, do not discontinue CMU. Given 10/10/2017 3:10 AM EST 10 mg Given 10/09/2017 10:01 PM EST 10 mg metoprolol tartrate (LOPRESSOR) injection 5 mg 5 mg, Intravenous, Every 6 hours, First dose on Mon10/09/17 at 1000, CMU Telemetry Monitoring Required, do not discontinue CMU. Given 10/09/2017 4:17 PM EST 5 mg Given 10/09/2017 9:39 AM EST 5 mg metoprolol tartrate (LOPRESSOR) tablet 25 mg 25 mg, Oral, 3 times daily, First dose on Mon10/10/17 at 1300 Given 10/11/2017 12:00 PM EST 25 mg Given 10/11/2017 8:02 AM EST 25 mg Given 10/10/2017 8:13 PM EST 25 mg metoprolol tartrate (LOPRESSOR) tablet 50 mg 50 mg, Oral, 3 times daily, First dose (after last modification) on Mon10/11/17 at 2100 Given 10/12/2017 8:15 PM EST 50 mg Given 10/12/2017 12:04 PM EST 50 mg Given 10/12/2017 8:00 AM EST 50 mg morphine sulfate 30 mg/30 mL GI ASST syringe Intravenous (Continuous Infusion), Continuous, Starting on Mon10/09/17 at 0930, HIGH ALERT MEDICATION New Syringe/Cartridge 10/09/2017 10:24 AM EST mycophenolate (CELLCEPT) 500 mg in dextrose 5% in water (D5W) 50 mL IVPB 500 mg, Intravenous, Administer over 2 Hours, 2 times daily, LEVEL 2 HAZARDOUS MEDICATIONIndications:Liver transplant candidate New Bag 10/11/2017 8:02 AM EST 500 mg 25 mL/hr New Bag 10/10/2017 8:10 PM EST 500 mg 25 mL/hr New Bag 10/10/2017 8:06 AM EST 500 mg 25 mL/hr mycophenolate (CELLCEPT) capsule 500 mg 500 mg, Oral, 2 times daily, First dose on Mon10/11/17 at 2100, LEVEL 2 HAZARDOUS MEDICATION Given 10/27/2017 8:51 AM EDT 500 mg Given 10/26/2017 9:06 PM EDT 500 mg Given 10/26/2017 9:26 AM EDT 500 mg nystatin (MYCOSTATIN) 100,000 unit/mL suspension 500,000 Units 500,000 Units, Swish & Swallow, 3 times daily, First dose on Mon10/08/17 at 1400, After patient is extubated.Indications:Liver transplant candidate Given 10/10/2017 8:00 AM EST 500,000 Units Given 10/09/2017 8:03 PM EST 500,000 Units Given 10/09/2017 12:28 PM EST 500,000 Units nystatin (MYCOSTATIN) 100,000 unit/mL suspension 500,000 Units 500,000 Units, Swish & Swallow, 3 times daily, First dose on Mon10/11/17 at 0930 Given 10/27/2017 3:11 PM EDT 500,000 Units Given 10/27/2017 8:52 AM EDT 500,000 Units Given 10/26/2017 9:05 PM EDT 500,000 Units ondansetron (ZOFRAN-ODT) disintegrating tablet 4 mg 4 mg, Oral, Every 8 hours PRN, Nausea, Vomiting, Starting on Mon10/17/17 at 0546 Given 10/27/2017 3:27 PM EDT 4 m g Given 10/27/2017 3:24 PM EDT 4 mg Given 10/27/2017 8:59 AM EDT 4 mg ondansetron (ZOFRAN-ODT) disintegrating tablet 4 mg 4 mg, Oral, Once, On Mon10/19/17 at 2200, For 1 dose Given 10/19/2017 10:04 PM EST 4 mg oxyCODONE (ROXICODONE) 5 mg/5 mL solution 10 mg 10 mg, Per NG / OG tube, Every 4 hours PRN, severe pain (NRS 7-10), Starting on Mon10/11/17 at 1305 Given 10/12/2017 9:06 AM EST 10 mg oxyCODONE (ROXICODONE) immediate release tablet 10 mg 10 mg, Oral, Every 4 hours PRN, severe pain (NRS 7-10), Starting on Mon10/12/17 at 1210 Given 10/26/2017 5:14 AM EDT 1 0 mg Given 10/25/2017 6:30 PM EDT 10 mg Given 10/24/2017 4:15 AM EDT 10 mg oxyCODONE (ROXICODONE) immediate release tablet 5 mg 5 mg, Oral, Every 4 hours PRN, moderate pain (NRS-4-6), Starting on Mon10/12/17 at 1210 Given 10/27/2017 8:56 AM EDT 5 mg Given 10/27/2017 1:04 AM EDT 5 mg Given 10/26/2017 9:28 AM EDT 5 mg pantoprazole (PROTONIX) EC tablet 40 mg 40 mg, Oral, Daily6, First dose on Mon10/12/17 at 0600 Given 10/27/2017 6:22 AM EDT 40 mg Given 10/26/2017 5:14 AM EDT 40 mg Given 10/25/2017 6:59 AM EDT 40 mg pantoprazole (PROTONIX) injection 40 mg 40 mg, Intravenous, Daily6, First dose on Mon10/08/17 at 1400, Dilute with 10 mL of 0.9% NaCl., Post-opIndications:Liver transplant candidate Given 10/11/2017 5:09 AM EST 40 mg Given 10/10/2017 5:16 AM EST 40 mg Given 10/09/2017 6:08 AM EST 40 mg perflutren (OPTISON) Susp 0.66 mg 0.66 mg, Intravenous, Once, On Mon10/10/17 at 1100, For 1 dose Given 10/10/2017 11:05 AM EST 0.66 mg predniSONE (DELTASONE) tablet 10 mg 10 mg, Oral, Daily, First dose (after last modification) on Bobbi 10/19/17 at 0900, Start daily PO dose on POD #8Indications:Liver transplant candidate Given 10/19/2017 9:58 AM EST 10 mg predniSONE (DELTASONE) tablet 15 mg 15 mg, Oral, Daily, First dose on 10/29/17 at 0900 predniSONE (DELTASONE) tablet 20 mg 20 mg, Oral, Daily, First dose on Mon10/16/17 at 0900, Start daily PO dose on POD #8Indications:Liver transplant candidate Given 10/18/2017 8:44 AM EST 20 mg Given 10/17/2017 8:36 AM EST 20 mg Given 10/16/2017 8:52 AM EST 20 mg predniSONE (DELTASONE) tablet 20 mg 20 mg, Oral, Daily, First dose (after last modification) on Mon10/20/17 at 0900, For 9 doses, Start daily PO dose on POD #8Indications:Liver transplant candidate Given 10/27/2017 8:52 AM EDT 20 mg Given 10/26/2017 9:28 AM EDT 20 mg Given 10/25/2017 8:13 AM EDT 20 mg predniSONE (DELTASONE) tablet 25 mg 25 mg, Oral, Once, On Mon10/15/17 at 0900, For 1 dose, POD #7Indications:Liver transplant candidate Given 10/15/2017 10:45 AM EST 25 mg predniSONE (DELTASONE) tablet 30 mg 30 mg, Oral, Once, On Mon10/14/17 at 0900, For 1 dose, POD #6, Post-opIndications:Liver transplant candidate Given 10/14/2017 9:21 AM EST 30 mg predniSONE (DELTASONE) tablet 40 mg 40 mg, Oral, Once, On Mon10/13/17 at 0900, For 1 dose, POD #5 , Post-opIndications:Liver transplant candidate Given 10/13/2017 8:22 AM EST 40 mg propofol (DIPRIVAN) infusion 10 mg/mL 5-80 mcg/kg/min ? 116.1 kg (3.483-55.728 mL/hr, rounded to 3.5-55.7 mL/hr), Intravenous, Continuous, Starting on Mon10/08/17 at 1500, Call MD if goal RASS not maintained and rate reaches 60 mcg/kg/min. Change Bottle/Tubing every 12 hours. Patient must have secured airway including mechanical ventilation, Is this patient's airway secure and mechanically ventilated? Yes, Goal RASS: -1 to +1 Rate/Dose Change 10/09/2017 7:28 AM EST 20 mcg/kg/min 13.9 mL/hr New Bag 10/09/2017 4:03 AM EST 10 mcg/kg/min 7 mL/hr Handoff 10/08/2017 7:46 PM EST 5 mcg/kg/min 3.5 mL/hr sodium chloride 0.9 % 500 mL bolus Intravenous, Administer over 15 Minutes, at 2,000 mL/hr, Once, On Mon10/08/17 at 2130, For 1 dose New Bag 10/08/2017 9:20 PM EST 2000 mL/hr sodium chloride 0.9 % infusion 100 mL/hr, Intravenous, Continuous, Starting on Mon10/08/17 at 1400, Post-opIndications:Liver transplant candidate New Bag 10/09/2017 6:04 AM EST 100 mL/hr 100 mL/hr New Bag 10/08/2017 2:17 PM EST 100 mL/hr 100 mL/hr sodium chloride 0.9 % infusion 20 mL/hr, Intravenous, Continuous, Starting on Mon10/09/17 at 0930 New Bag 10/09/2017 9:24 AM EST 20 mL/hr 20 mL/hr sodium chloride 0.9 % infusion 75 mL/hr, Intravenous, Continuous, Starting on Mon10/09/17 at 1730 New Bag 10/11/2017 7:05 PM EST 75 mL/hr 75 mL/hr Rate/Dose Change 10/11/2017 6:11 AM EST 75 mL/hr 75 mL/h r New Bag 10/09/2017 5:32 PM EST 20 mL/hr 20 mL/hr sulfamethoxazole-trimethoprim (BACTRIM,SEPTRA) 400-80 mg per tablet 1 tablet 1 tablet, Oral, Daily, First dose on Mon10/11/17 at 0900 Given 10/27/2017 8:51 AM EDT 1 tablet Given 10/26/2017 9:29 AM EDT 1 tablet Given 10/25/2017 8:12 AM EDT 1 tablet tacrolimus (PROGRAF) capsule 3 mg 3 mg, Oral, Two times a day, First dose on Bobbi 10/12/17 at 1130, LEVEL 2 HAZARDOUS MEDICATION Given 10/14/2017 6:51 AM EST 3 mg Given 10/13/2017 7:42 PM EST 3 mg Given 10/13/2017 8:22 AM EST 3 mg tacrolimus (PROGRAF) capsule 4 mg 4 mg, Oral, Two times a day, First dose (after last modification) on 10/14/17 at 1900, LEVEL 2 HAZARDOUS MEDICATION Given 10/16/2017 7:01 AM EST 4 mg Given 10/15/2017 6:06 PM EST 4 mg Given 10/15/2017 6:27 AM EST 4 mg tacrolimus (PROGRAF) capsule 5 mg 5 mg, Oral, Two times a day, First dose (after last modification) on 10/16/17 at 1900, LEVEL 2 HAZARDOUS MEDICATION Given 10/17/2017 7:46 AM EST 5 mg Given 10/16/2017 6:32 PM EST 5 mg tacrolimus (PROGRAF) capsule 6 mg 6 mg, Oral, Two times a day, First dose (after last modification) on Mon10/17/17 at 1900, LEVEL 2 HAZARDOUS MEDICATION Given 10/20/2017 7:47 AM EST 6 mg Given 10/19/2017 6:32 PM EST 6 mg Given 10/19/2017 6:59 AM EST 6 mg Tc-99m MAA 5.9 millicurie 5.9 millicurie, Intravenous, IMG once as needed, contrast, Starting on Mon10/24/17 at 1600, For 1 dose Given 10/24/2017 4:00 PM EDT 5.9 mi llicuries traMADol (ULTRAM) tablet 100 mg 100 mg, Oral, Every 6 hours PRN, moderate pain (NRS-4-6), Starting on Mon10/11/17 at 1108 Given 10/17/2017 11:08 PM EST 100 mg traMADol (ULTRAM) tablet 50 mg 50 mg, Oral, Every 6 hours PRN, moderate pain (NRS-4-6), Starting on Mon10/11/17 at 1108 valGANciclovir (VALCYTE) 50 mg/mL oral solution SolR 450 mg 450 mg, Oral, Daily, First dose (after last modification) on Mon10/10/17 at 0930, LEVEL 2 HAZARDOUS MEDICATION Given 10/11/2017 8:01 AM EST 450 mg valGANciclovir (VALCYTE) tablet Tab 450 mg 450 mg, Oral, Daily, First dose (after last modification) on Mon10/22/17 at 0900, LEVEL 2 HAZARDOUS MEDICATION Given 10/23/2017 8:50 AM EDT 450 mg Given 10/22/2017 8:30 AM EDT 450 mg valGANciclovir (VALCYTE) tablet Tab 900 mg 900 mg, Oral, Daily, First dose on Mon10/12/17 at 0900, LEVEL 2 HAZARDOUS MEDICATION Given 10/21/2017 8:39 AM EST 900 mg Given 10/20/2017 9:23 AM EST 900 mg Given 10/19/2017 9:58 AM EST 900 mg valGANciclovir (VALCYTE) tablet Tab 900 mg 900 mg, Oral, Daily, First dose (after last modification) on Mon10/24/17 at 0900, LEVEL 2 HAZARDOUS MEDICATION Given 10/27/2017 8:52 AM EDT 900 mg Given 10/26/2017 9:28 AM EDT 900 mg Given 10/25/2017 8:13 AM EDT 900 mg Xe-133 gas 12.3 millicurie 12.3 millicurie, Inhalation, IMG once as needed, contrast, Starting on Mon10/24/17 at 1529, For 1 dose Given 10/24/2017 4:00 PM EDT 12 .3 millicuries documented in this encounter Active and Recently Administered Medications Times are shown in EDT. Scheduled Medication Order 10/25/2017 10/26/2017 10/27/2017 aspirin chewable tablet 81 mg 81 mg, Oral, Daily with breakfast, First dose on Mon10/09/17 at 1400 0812 (Given - Provider: Lizeth Crow RN) 09 (Given - Provider: Erika Pitts RN) 0852 (Given - Provider: Ritchie Solis) carvedilol (COREG) tablet 50 mg 50 mg, Oral, 2 times daily, First dose (after last modification) on Mon10/24/17 at 0900 0812 (Given - Provider: Lizeth Crow, JANA)2014 (Given - Provider: Valeria Enriquez, JANA) 926 (Given - Provider: Erika Pitts, JANA)2104 (Given - Provider: Kim Batista RN) 0852 (Given - Provider: Ritchie Solis) cloNIDine HCl (CATAPRES) tablet 0.1 mg 0.1 mg, Oral, 2 times daily, First dose on Mon10/12/17 at 1100 0812 (Given - Provider: Lizeth Crow RN)2014 (Given - Provider: Valeria Enriquez, JANA) 925 (Given - Provider: Erika Pitts RN)2105 (Given - Provider: Kim Batista RN) 0852 (Given - Provider: Ritchie Solis) cycloSPORINE modified ((NEORAL/GENGRAF)) capsule 200 mg 200 mg, Oral, Two times a day, First dose (after last modification) on Mon10/25/17 at 1900, LEVEL 2 HAZARDOUS MEDICATION 1824 (Given - Provider: Erika Pitts RN) 0647 (Given - Provider: Kim Batista, JANA)1839 (Given - Provider: Erika Pitts, JANA) 0622 (Given - Provider: Kim Batista RN) cycloSPORINE modified (NEORAL/GENGRAF) capsule 150 mg (CANCELED) 150 mg, Oral, Two times a day, First dose on Mon10/23/17 at 1000, LEVEL 2 HAZARDOUS MEDICATION 0825 (Given - Provider: Lizeth Crow RN - Comment: lab work not drawn on time) entecavir (BARACLUDE) tablet 1 mg 1 mg, Oral, Daily6, First dose (after last modification) on 10/14/17 at 0600, ADMINISTER ON EMPTY STOMACH (2 HOURS BEFORE OR AFTER MEALS). LEVEL 2 HAZARDOUS MEDICATION 0659 (Given - Provider: Sylvain Hawkins RN) 0647 (Given - Provider: Kim Batista, JANA) 0622 (Given - Provider: Kim Batista RN) furosemide (LASIX) injection 40 mg (COMPLETED) 40 mg, Intravenous, Once, On 10/25/17 at 0930, For 1 dose, Give doses of 100mg or less over 5 minutes. For doses over 100mg, give at rate of up to 20mg/min. 1014 (Given - Provider: Lizeth Crow RN) furosemide (LASIX) injection 40 mg (COMPLETED) 40 mg, Intravenous, Once, On Bobbi 10/26/17 at 1030, For 1 dose, Give doses of 100mg or less over 5 minutes. For doses over 100mg, give at rate of up to 20mg/min. 1144 (Given - Provider: Erika Pitts RN) gabapentin (NEURONTIN) capsule 600 mg 600 mg, Oral, 3 times daily, First dose (after last modification) on Mon10/11/17 at 1300 0812 (Given - Provider: Lizeth Crow RN)1419 (Given - Provider: Lizeth Crow RN)2015 (Given - Provider: Valeria Enriquez RN) 0926 (Given - Provider: Erika Pitts RN)1504 (Given - Provider: Erika Pitts RN)2105 (Given - Provider: Kim Batista RN) 0851 (Given - Provider: Ritchie Solis)1525 (Given - Provider: Ritchie Solis) heparin (porcine) injection 5,000 Units 5,000 Units, Subcutaneous, Every 8 hours scheduled (3 times per day), First dose on Mon10/09/17 at 1300 0812 (Given - Provider: Lizeth Crow RN)1824 (Given - Provider: Erika Pitts RN)2357 (Given - Provider: Kim Batista RN) 0929 (Given - Provider: Erika Pitts RN)1729 (Given - Provider: Erika Pitts RN) 0103 (Given - Provider: Kim Batista RN)0852 (Given - Provider: Ritchie Solis)1511 (Not Given - Provider: Ritchie Solis - Reason: Patient/family refused) hydrALAZINE (APRESOLINE) tablet 10 mg 10 mg, Oral, Every 8 hours scheduled (3 times per day), First dose on Bobbi 10/26/17 at 1300 1504 (Given - Provider: Erika Pitts RN)2106 (Given - Provider: Kim Batista RN) 0622 (Given - Provider: Kim Batista RN)1512 (Given - Provider: Ritchie Solis) hydrALAZINE (APRESOLINE) tablet 10 mg (COMPLETED) 10 mg, Oral, Once, On Bobbi 10/26/17 at 0900, For 1 dose 0928 (Given - Provider: Erika Pitts RN) insulin lispro (humaLOG) injection 0-10 Units 0-10 Units, Subcutaneous, At Bedtime (2100), First dose on Mon10/15/17 at 2130, For patients eating discrete meals: humaLOG insulin High Dose correction for patients requiring greater than 80 units/day. 2357 (Given - Provider: Kim Batista RN) 0104 (Given - Provider: Kim Batista RN) insulin lispro (humaLOG) injection 0-12 Units 0-12 Units, Subcutaneous, 3 times daily before meals, First dose on Bobbi 10/12/17 at 1630, For patients eating discrete meals: humaLOG insulin High Dose correction for patients requiring greater than 80 units/day. 0817 (Not Given - Provider: Lizeth Crow RN - Reason: Order parameters not met)1414 (Not Given - Provider: Lizeth Crow RN - Reason: Order parameters not met)2014 (Given - Provider: Valeria Enriquez RN) 0822 (Not Given - Provider: Erika Pitts RN - Reason: Order parameters not met)1502 (Given - Provider: Erika Pitts RN)1839 (Given - Provider: Erika Pitts RN) 0903 (Given - Provider: Ritchie Solis)1149 (Given - Provider: Ritchie Solis) insulin lispro (humaLOG) injection 12 Units (COMPLETED) 12 Units, Subcutaneous, Once, On Bobbi 10/26/17 at 1700, For 1 dose, HIGH ALERT MEDICATION Onset of action is rapid. Give dose 5-10 minutes before meal. Have meal at bedside. 1727 (Given - Provider: Erika Pitts, JANA) insulin lispro (humaLOG) injection 15 Units (CANCELED) 15 Units, Subcutaneous, 3 times daily with meals, First dose (after last modification) on Mon10/23/17 at 0800, HIGH ALERT MEDICATION Onset of action is rapid. Give dose 5-10 minutes before meal. Have meal at bedside. 0825 (Given - Provider: Lizeth Crow, RN)1414 (Not Given - Provider: Lizeth Crow, RN - Reason: Order parameters not met) insulin NPH (HumuLIN N) injection 10 Units (COMPLETED) 10 Units, Subcutaneous, Once, On Mon10/26/17 at 1500, For 1 dose, Do not hold medication unless instructed by provider. HIGH ALERT MEDICATION 1502 (Given - Provider: Erika Pitts, JANA) insulin NPH (HumuLIN N) injection 10 Units (COMPLETED) 10 Units, Subcutaneous, Once, On Mon10/26/17 at 1700, For 1 dose, Do not hold medication unless instructed by provider. HIGH ALERT MEDICATION 1728 (Given - Provider: Erika Pitts, JANA) insulin NPH (HumuLIN N) injection 10 Units (COMPLETED) 10 Units, Subcutaneous, Once, On Mon10/27/17 at 1000, For 1 dose, Do not hold medication unless instructed by provider. HIGH ALERT MEDICATION 1151 (Given - Provider: Ritchie Solis) insulin NPH (HumuLIN N) injection 30 Units 30 Units, Subcutaneous, Every morning, First dose on Mon10/27/17 at 0900, Do not hold medication unless instructed by provider. HIGH ALERT MEDICATION 0904 (Given - Provider: Ritchie Solis) insulin NPH (HumuLIN N) injection 75 Units (CANCELED) 75 Units, Subcutaneous, Every morning, First dose (after last modification) on Mon10/25/17 at 0900, Do not hold medication unless instructed by provider. HIGH ALERT MEDICATION 0826 (Given - Provider: Lizeth Crow RN) lidocaine (LIDODERM) 5 % 1 patch 1 patch, Transdermal, Every 24 hours, First dose on Mon10/23/17 at 1030, LEAVE PATCH ON FOR 12 HOURS,THEN REMOVE FOR 12 HOURS. 1720 (Patch Applied - Provider: Erika Pitts RN - Comment: lower back) 0647 (Patch Removed - Provider: Kim Batista RN)1400 (Patch Applied - Provider: Erika Pitts RN - Comment: stomach) 0105 (Patch Removed - Provider: Kim Batista RN)1001 (Patch Applied - Provider: Josie Diaz, JANA)2201 (Due: Patch Removed - Provider: Josie Diaz RN) lidocaine (LIDODERM) 5 % 1 patch 1 patch, Transdermal, Every 24 hours, First dose on Mon10/26/17 at 2300, LEAVE PATCH ON FOR 12 HOURS,THEN REMOVE FOR 12 HOURS. 222 (Patch Applied - Provider: Kim Batista RN) 0855 (Patch Removed - Provider: Ritchie Solis) magnesium sulfate in sterile water 100 mL IVPB 4 g (COMPLETED) 4 g, Intravenous, at 25 mL/hr, Once, On Mon10/25/17 at 1100, For 1 dose 1534 (New Bag - Provider: Lizeth Crow RN) melatonin Tab 6 mg 6 mg, Oral, At Bedtime (2100), First dose (after last modification) on Mon10/25/17 at 2100, FOR INSOMNIA 2014 (Given - Provider: Valeria Enriquez RN) 2104 (Given - Provider: Kim Batista RN) mycophenolate (CELLCEPT) capsule 500 mg 500 mg, Oral, 2 times daily, First dose on Mon10/11/17 at 2100, LEVEL 2 HAZARDOUS MEDICATION 0812 (Given - Provider: Lizeth Crow RN)2014 (Given - Provider: Valeria Enriquez RN) 09 (Given - Provider: Erika Pitts RN)2105 (Given - Provider: Kim Batista RN) 0851 (Given - Provider: Ritchie Solis) nystatin (MYCOSTATIN) 100,000 unit/mL suspension 500,000 Units 500,000 Units, Swish & Swallow, 3 times daily, First dose on Mon10/11/17 at 0930 0812 (Given - Provider: Lizeth Crow, JANA)1419 (Given - Provider: Lizeth Crow RN)2014 (Given - Provider: Valeria Enriquez, JANA) 0928 (Given - Provider: Erika Pitts, JANA)1504 (Given - Provider: Erika Pitts RN)2105 (Given - Provider: Kim Batista, JANA) 0852 (Given - Provider: Ritchie Solis)1511 (Given - Provider: Ritchie Solis) pantoprazole (PROTONIX) EC tablet 40 mg 40 mg, Oral, Daily6, First dose on Mon10/12/17 at 0600 0659 (Given - Provider: Sylvain Hawkins RN) 0514 (Given - Provider: Kim Batista, JANA) 0622 (Given - Provider: Kim Batista RN) predniSONE (DELTASONE) tablet 15 mg 15 mg, Oral, Daily, First dose on Mon10/29/17 at 0900 predniSONE (DELTASONE) tablet 20 mg(Linked Group 1) 20 mg, Oral, Daily, First dose (after last modification) on Mon10/20/17 at 0900, For 9 doses, Start daily PO dose on POD #8 0813 (Given - Provider: Lizeth Crow RN) 0928 (Given - Provider: Erika Pitts, JANA) 0852 (Given - Provider: Ritchie Solis) sulfamethoxazole-trime thoprim (BACTRIM,SEPTRA) 400-80 mg per tablet 1 tablet 1 tablet, Oral, Daily, First dose on Mon10/11/17 at 0900 0812 (Given - Provider: Lizeth Crwo, JANA) 0929 (Given - Provider: Erika Pitts, JANA) 0851 (Given - Provider: Ritchie Solis) valGANciclovir (VALCYTE) tablet Tab 900 mg 900 mg, Oral, Daily, First dose (after last modification) on Mon10/24/17 at 0900, LEVEL 2 HAZARDOUS MEDICATION 0813 (Given - Provider: Lizeth Crow RN) 0928 (Given - Provider: Erika Pitts RN) 0852 (Given - Provider: Ritchie Solis) PRN Medication Order 10/25/2017 10/26/2017 10/27/2017 acetaminophen (TYLENOL) tablet 650 mg 650 mg, Oral, Every 6 hours PRN, Headaches, Starting on Mon10/25/17 at 0737, Maximum dose of acetaminophen is 4000 mg (4 grams) from all sources in 24 hours. 08 (Given - Provider: Lizeth Crow RN)2025 (Given - Provider: Valeria Enriquez RN) ALL IV MEDICATIONS IN NORMAL SALINE 0.9% MISCELLANEOUS, Use as directed, Other, All IV medications in 0.9% Normal Saline, Starting on Mon10/08/17 at 1350, Pharmacy to place all IV's in 0.9% Normal Saline. calcium carbonate (TUMS) chewable tablet 500 mg 500 mg, Oral, 3 times daily PRN, Indigestion, Heartburn, Starting on Mon10/27/17 at 1051 1147 (Given - Provider: Ritchie Solis)1512 (Given - Provider: Ritchie Solis) dextrose 50 % in water (D50W) iv Syrg 25-50 mL 25-50 mL, Intravenous, Every 15 min PRN, for blood glucose less than 70mg/dL that can not be corrected orally or via feeding tube.?See admin instructions for details., Starting on Bobbi 10/12/17 at 1056, If glucose < 70 and alert but can not be corrected, orally or via feeding tube, give ?? amp (25 ml) D50W. Recheck blood sugar in 15 minutes and repeat treatment if glucose still < 70. If not alert and glucose [...] milk.?See Admin instructions for details., Starting on 10/15/17 at 2119, If glucose is between 50 -70, give [...] If glucose < 70 and alert but can not be corrected, orally or via feeding tube, give ?? amp (25 ml) D50W. Recheck blood sugar in 15 minutes and repeat treatment if glucose still < 70. If not alert and glucose < 70 give 1 amp (50 ml) D50W. Recheck glucose in 15 minutes and repeat treatment if glucose still < 70. DO NOT ADMINISTER VIA FEEDING TUBE ipratropium-albuterol (DUO-NEB) 0.5 mg-3 mg(2.5 mg base)/3 mL nebulizer solution 3 mL 3 mL, Nebulization, RT every 4 hours PRN, Wheezing, Shortness of Breath, Starting on 10/23/17 at 1001 ondansetron (ZOFRAN-ODT) disintegrating tablet 4 mg 4 mg, Oral, Every 8 hours PRN, Nausea, Vomiting, Starting on Mon10/17/17 at 0546 0140 (Given - Provider: Kim Batista RN)0859 (Given - Provider: Ritchie Solis)1524 (Given - Provider: Ritchie Solis)1527 (Given - Provider: Ritchie Solis - Comment: pt is taking this dose home with them) oxyCODONE (ROXICODONE) immediate release tablet 10 mg(Linked Group 2) 10 mg, Oral, Every 4 hours PRN, severe pain (NRS 7-10), Starting on Mon10/12/17 at 1210 0914 (Canceled Entry - Provider: Josie Diaz RN)0916 (See Alternative - Provider: Josie Diaz RN)1830 (Given - Provider: Erika Pitts, JANA) 0514 (Given - Provider: Kim Batista RN)0928 (See Alternative - Provider: Erika Pitts, JANA) 0104 (See Alternative - Provider: Kim Batista RN)0856 (See Alternative - Provider: Ritchie Solis) oxyCODONE (ROXICODONE) immediate release tablet 5 mg(Linked Group 2) 5 mg, Oral, Every 4 hours PRN, moderate pain (NRS-4-6), Starting on Bobbi 10/12/17 at 1210 0914 (See Alternative - Provider: Josie Diaz RN)0916 (Given - Provider: Josie Diaz RN)1830 (See Alternative - Provider: Erika Pitts, JANA) 0514 (See Alternative - Provider: Kim Batista RN)0928 (Given - Provider: Erika Pitts RN) 0104 (Given - Provider: Kim Batista RN)0856 (Given - Provider: Ritchie Solis) traMADol (ULTRAM) tablet 100 mg(Linked Group 3) 100 mg, Oral, Every 6 hours PRN, moderate pain (NRS-4-6), Starting on Mon10/11/17 at 1108 traMADol (ULTRAM) tablet 50 mg(Linked Group 3) 50 mg, Oral, Every 6 hours PRN, moderate pain (NRS-4-6), Starting on Mon10/11/17 at 1108 Linked Groups Order Group 1: predniSONE (DELTASONE) tablet 20 mgJump to med 20 mg, Oral, Daily, First dose (after last modification) on Mon10/20/17 at 0900, For 9 doses, Start daily PO dose on POD #8 Group 2: oxyCODONE (ROXICODONE) immediate release tablet 5 mgJump to med 5 mg, Oral, Every 4 hours PRN, moderate pain (NRS-4-6), Starting on Mon10/12/17 at 1210 Or oxyCODONE (ROXICODONE) immediate release tablet 10 mgJump to med 10 mg, Oral, Every 4 hours PRN, severe pain (NRS 7-10), Starting on Mon10/12/17 at 1210 Group 3: traMADol (ULTRAM) tablet 50 mgJump to med 50 mg, Oral, Every 6 hours PRN, moderate pain (NRS-4-6), Starting on Mon10/11/17 at 1108 Or traMADol (ULTRAM) tablet 100 mgJump to med 100 mg, Oral, Every 6 hours PRN, moderate pain (NRS-4-6), Starting on Mon10/11/17 at 1108 documented in this encounter Additional Health Concerns Assessment Noted Time PHQ-9 Depression Total Score: 0 08/21/19 18 11:00 AM EST documented as of this encounter Care Teams Feather Renovator Relationship Specialty Start Date End Date Edgar Fournier MD [address] [place] [address] [place] [address] PCP - General 08/18/17 06/23/21 documented as of this encounter
--- OUTSIDE RECORDS SUMMARY | 2024-07-12 12:58 | XMS_ITS | Encounter Summary ---
Author Organization Health Address [address] [place] [address] Care Team Providers Care Electronic Science Teacher Name Role Phone Edgar Fournier MD Primary Care Provider [phone] Source Comments This information has been disclosed [...] release of HIV test results or diagnoses. [id number] Encounter Details Date Type Department Care Team (Late st Contact Info) Description 10/17/2017 Education [facility] at Outpatient [address] [phone] Balbina Pugh, RN Social History Tobacco Use Types Packs/Day [...] Progress Notes * Balbina Pugh RN - 10/17/2017 4:17 PM EST Education - Discharge: Post-Transplant Education and discharge planning discussed with patient and caregiver team including ,Kym. Primary support will be provided by Gracia Stauffer's mom. The time spent educatingwas 60 minutes discussing the following topics, including but not limited to: 1. Immunosuppression Precautions [x] 2. Immunosuppression Medications - action, dose, route, side effects [x] 3. Anti-Infective medications - action, dose, route, side effects, length of therapy [x] 4. Signs and symptoms of Infection/Rejection [x] 5. When to call relations coordinator [x] 6. Outpatient follow up including frequency of clinic visits and lab draws [x] 7. How to care for the transplant incision [x] 8. Completing the daily log including temperature, heart rate, blood pressure and blood glucose parameters [x] 9. Activity restrictions including sun exposure precautions, travel restrictions, pet safety, plants and gardening restrictions [x] 10. Importance of routine medical screenings and exams with other providers [x] 11. Understanding emotions follow transplant [x] 12. Importance of using the medication card and pill organizer to develop a system for medication administration. [x] 13. Enforced education on bring their medication card and daily log to each outpatient clinic visit. [x] [] Patient and caregiver(s) were attentive and receptive to learning, and asked appropriate questions.I encouraged all to review written materials and watch transplant education videos to reinforce theeducation provided today. Also provided written educational materials for reference, contact phone numbers and encouraged all to call with questions/concerns. The multidisciplinary transplant team and I will continue to assist this patient and caregiver team with discharge planning/education based on patient's medical condition. I will ensure the following and other items as necessary: 1. Appropriate and timely coordination of transplant care and education. 2. Collaborate with inpatient transplant team to ensure smooth transition to home or rehab facility. 3. If patient is discharged to rehab facility will arrange pharmacy education and pillbox packing in the outpatient setting prior to discharge home. 4. Arrange all outpatient transplant clinic follow up as appropriate. 5. Communicate progress of care coordination with the transplant team and notify of any challenges/obstacles that might delay discharge. Aiden Stauffer has good social support with a good understanding of information provided. No barriersto discharge identified. Adien Stauffer needs to be redirected to focus on what is going on now. documented in this encounter Plan of Treatment Upcoming Encounters Date Type Department Care Team (Late st Contact Info) Description 07/15/2024 9:00 AM EST Hospital [facility] Interventional Radiology [address] [place] [phone] Herve Carrillo MD [address] [facility] 3200 Surgery [place] [phone] documented as of this encounter Visit Diagnoses Not on filedocumented in this encounter Additional Health Concerns Assessment Noted Time PHQ-9 Depression Total Score: 0 08/21/19 18 11:00 AM EST documented as of this encounter Care Teams Electronic Science Teacher Relationship Specialty Start Date End Date Edgar Fournier MD [address] [place] [address] [place] [address] PCP - General 08/18/17 06/23/21 documented as of this encounter
--- OUTSIDE RECORDS SUMMARY | 2024-07-12 12:58 | XMS_ITS | Encounter Summary ---
Author Organization [facility] Address [address] [place] [address] Care Team Providers Care Distribution Agent Name Role Phone Edgar Fournier MD Primary Care Provider [phone] Source Comments This information has been disclosed [...] release of HIV test results or diagnoses. [id number] Encounter Details Date Type Department Care Team (Late st Contact Info) Description 10/18/2017 Pharmacy Services [facility] [address] [place] [phone] Eliz Bustamante, RXT Social History Tobacco Use Types Packs/Day [...] as of this encounter Progress Notes * Eliz Marshall, RXT - 10/18/2017 4:01 PM EST MEDICATION ACCESS SERVICES Patient presented in Medication Access Services in the [facility] needing assistance with one or more prescription(s). Patient's prescription for entecavir requires a prior authorization through [place] Medicaid. Dosage: 1 mg Frequency: daily Quantity: 30 The prior authorization was submitted and pending. Prior Authorization Approval Number: [#]. Approval dates: [Dates]. Prior Authorization Dyer: Specialty Pharmacy Requirements: Name of Pharmacy: Phone Number: Prescriptions Transferred Date: The patient's co-pay for the medication is unknown at this time . * Carlos Eduardo Basurto - 10/18/2017 4:01 PM EST MEDICATION ACCESS SERVICES Patient's prescription for Humalog Kwikpens requires a prior authorization through [employer] [place] [employer]. Dosage/Frequency: Administer insulin with meals per sliding scale: glucose 150- 199=2 u, 200-249=4 u, 250-299=7 u, 300-349=10 u, >349= 12 units Quantity: 15mL The prior authorization was submitted and approved. Prior Authorization Approval Number: [id number] Approval dates: 10/26/17-10/26/18 Prior Authorization Dyer: [id number] Carlos Eduardo Basurto, PharmD [phone] MEDICATION ACCESS SERVICES Patient's prescription for Entecavir requires a prior authorization through [employer] [place] [employer]. Dosage: 1mg Frequency: daily Quantity: 30 The prior authorization was submitted and approved. Prior Authorization Approval Number: [id number] Approval dates: 10/26/17-10/26/18 Prior Authorization Dyer: [id number] Carlos Eduardo Basurto, PharmD [phone] MEDICATION ACCESS SERVICES Patient's prescription for Onetouch Delica lancets requires a prior authorization through [employer] [place] [employer]. Dosage/Frequency: Use 1 strip as directed 4 times daily before meals and at bedtime. Quantity: 150 The prior authorization was submitted and approved. Prior Authorization Approval Number: [id number] Approval dates: 10/26/17-10/26/18 Prior Authorization Dyer: [id number] Carlos Eduardo Basurto, PharmD [phone] documented in this encounter Plan of Treatment Upcoming Encounters Date Type Department Care Team (Late st Contact Info) Description 07/15/2024 9:00 AM EST Hospital Encounter [facility] Interventional Radiology [address] [place] [address] Herve Carrillo MD [address] [facility] [address]200 Surgery [place] [address] documented as of this encounter Visit Diagnoses Not on filedocumented in this encounter Additional Health Concerns Assessment Noted Time PHQ-9 Depression Total Score: 0 08/21/19 18 11:00 AM EST documented as of this encounter Care Teams Distribution Agent Relationship Specialty Start Date End Date [place] [phone] PCP - General 08/18/17 06/23/21 documented as of this encounter
--- OUTSIDE RECORDS SUMMARY | 2024-07-12 12:58 | XMS_ITS | Encounter Summary ---
Author Organization [facility] Address [facility] [place] [address] Care Team Providers Care Special Forces Weapons Sergeant Name Role Phone Edgar Fournier MD Primary Care Provider [phone] Source Comments This information has been disclosed [...] release of HIV test results or diagnoses. [id number] Reason for Referral * Sleep Study (Routine) - Closed Specialty Diagnoses / Procedures Referred By Contac t Referred To Contact Sleep Medicine Diagnoses Nocturnal hypoxemia Procedures POLYSOMNOGRAPHY 4+ PARAMETERS SPLIT STUDY (XLTEK) Laurence Craig MD Phone: tel: fax: Referral ID Status Reason Start Date Expiration Date Visits Re quested Visits Authorized [id number] Closed 10/25/2017 04/23/2018 1 1 Encounter Details Date Type Department Care Team (Late st Contact Info) Description 10/25/2017 Orders Only [facility] [address] [place] [phone] Laurence Craig MD [address] [place] [phone] Nocturnal hypoxemia (Primary Dx) Social History Tobacco Use Types [...] [facility] Interventional Radiology [address] [place] [phone] Herve Carrillo MD [address] [facility] 3200 Surgery [place] [phone] documented as of this encounter Visit Diagnoses Diagnosis Nocturnal hypoxemia- Primary documented in this encounter Additional Health Concerns Assessment Noted Time PHQ-9 Depression Total Score: 0 08/21/19 18 11:00 AM EST documented as of this encounter Care Teams Special Forces Weapons Sergeant Relationship Specialty Start Date End Date Edgar Fournier MD [address] [place] [address] [place] [address] PCP - General 08/18/17 06/23/21 documented as of this encounter
--- OUTSIDE RECORDS SUMMARY | 2024-07-12 12:58 | XMS_ITS | Encounter Summary ---
Author Organization [facility] Address [address] [place] [address] Care Team Providers Care Ripshear Operator Name Role Phone Edgar Fournier MD Primary Care Provider [phone] Source Comments This information has been disclosed [...] release of HIV test results or diagnoses. [id number] Encounter Details Date Type Department Care Team (Late st Contact Info) Description 10/12/2017 Orders Only [facility] Liver Transplant at Outpatient [address] [address] Latrice Brice MA Transplanted liver (CMS-HCC) (Primary [...] 07/15/2024 9:00 AM EST Hospital Encounter [facility] Interventional Radiology [address] [place] [address] Herve Carrillo MD [address] Surgery [place] [address] documented as of this encounter Visit Diagnoses Diagnosis Transplanted liver (CMS-HCC)- Primary Liver replaced by transplant Drug therapy Encounter for other specified aftercare documented in this encounter Additional Health Concerns Assessment Noted Time PHQ-9 Depression Total Score: 0 08/21/19 18 11:00 AM EST documented as of this encounter Care Teams Ripshear Operator Relationship Specialty Start Date End Date [place] [address] PCP - General 08/18/17 06/23/21 documented as of this encounter
--- OUTSIDE RECORDS SUMMARY | 2024-07-12 12:58 | XMS_ITS | Encounter Summary ---
Author Organization Health Address [address] [place] [address] Care Team Providers Care Credit Union Manager Name Role Phone Edgar Fournier MD Primary Care Provider [phone] Source Comments This information has been disclosed [...] release of HIV test results or diagnoses. [id number] Health Encounter Details Date Type Department Care Team ([facility] Contact Info) Description 10/13/2017 Chart Note [facility] Liver Transplant at Outpatient [address] [address] Eleanor Casey PA Social History Tobacco Use [...] Encounters Date Type Department Care Team (Late Contact Info) Description 07/15/2024 9:00 AM EST Hospital Encounter [facility] Interventional Radiology [address] [place] [phone] Herve Carrillo MD [address] [place] [phone] documented as of this encounter Visit Diagnoses Not on filedocumented in this encounter Additional Health Concerns Assessment Noted Time PHQ-9 Depression Total Score: 0 08/21/19 18 11:00 AM EST documented as of this encounter Care Teams Credit Union Manager Relationship Specialty Start Date End Date Edgar Fournier MD [address] [place] [address] [place] [address] PCP - General 08/18/17 06/23/21 documented as of this encounter
--- OUTSIDE RECORDS SUMMARY | 2024-07-12 12:58 | XMS_ITS | Encounter Summary ---
Author Organization [facility] Address [address] [place] [address] Care Team Providers Care Linen Supervisor Name Role Phone Edgar Fournier MD Primary Care Provider [phone] Source Comments This information has been disclosed [...] release of HIV test results or diagnoses. [id number] Health Encounter Details Date Type Department Care Team (Late st Contact Info) Description 10/18/2017 Chart Note [facility] Liver Transplant at Outpatient [address] [address] Maile Valles, JANA Social History Tobacco Use [...] Encounter [facility] Interventional Radiology [address] [place] [phone] Herve Carrillo MD [address] [place] [phone] documented as of this encounter Visit Diagnoses Not on filedocumented in this encounter Additional Health Concerns Assessment Noted Time PHQ-9 Depression Total Score: 0 08/21/19 18 11:00 AM EST documented as of this encounter Care Teams Linen Supervisor Relationship Specialty Start Date End Date Edgar Fournier MD [address] [place] [address] [place] [address] PCP - General 08/18/17 06/23/21 documented as of this encounter
--- OUTSIDE RECORDS SUMMARY | 2024-07-12 12:58 | XMS_ITS | Encounter Summary ---
Author Organization Health Address [facility] [place] [address] Care Team Providers Care Magnetic Locater Name Role Phone Edgar Fournier MD Primary Care Provider [phone] Source Comments This information has been disclosed [...] release of HIV test results or diagnoses. [id number] Encounter Details Date Type Department Care Team (Late st Contact Info) Description 10/08/2017 Chart Note [facility] Liver Transplant at Outpatient [address] [address] Aleta Worthington, RN Notification received from surgeon that transplant complete. Patient Social History Tobacco Use Types Packs/Day Years [...] as of this encounter Progress Notes * Aleta Worthington RN - 10/08/2017 1:25 PM EST Notification received from surgeon that transplant complete. Patient removed from the wait list. EPIC updated. documented in this encounter Plan of Treatment Upcoming Encounters Date Type Department Care Team (Late st Contact Info) Description 07/15/2024 9:00 AM EST Hospital Encounter [facility] Interventional Radiology [address] [place] [phone] Herve Carrillo MD 3130 [facility] Ed [address]200 Surgery [place] [phone] documented as of this encounter Visit Diagnoses Not on filedocumented in this encounter Additional Health Concerns Assessment Noted Time PHQ-9 Depression Total Score: 0 08/21/19 18 11:00 AM EST documented as of this encounter Care Teams Magnetic Locater Relationship Specialty Start Date End Date Edgar Fournier MD [address] [place] [address] [place] [address] PCP - General 08/18/17 06/23/21 documented as of this encounter
--- OUTSIDE RECORDS SUMMARY | 2024-07-12 12:58 | XMS_ITS | Encounter Summary ---
Author Organization Health Address [facility] [place] [address] Care Team Providers Care Shipping Helper Name Role Phone Edgar Fournier MD Primary Care Provider [phone] Maile Valles RN Unavailable Unavail able Jack Ordoñez MD Unavailable [phone] Source Comments This information has been [...] release of HIV test results or diagnoses. [id number] Encounter Details Date Type Department Care Team (Late st Contact Info) Description 10/18/2017 Pharmacy Services [facility] IP Pharmacy [address] [place] [phone] Eliz Bustamante, RXT Social History Tobacco Use [...] Notes * Eliz Marshall, RXT - 10/18/2017 4:02 PM EST MEDICATION ACCESS SERVICES Patient presented in Medication Access Services in the [facility] Outpatient [facility] needing assistance with one or more prescription(s). Patient's prescription for One touch Verio test strips requires a prior authorization through [place] Medicaid. The prior authorization was submitted and approved. Prior Authorization Approval Number: [id number]. Approval dates: 10/18/17-10/03/18. Prior Authorization Dyer: [id number] Specialty Pharmacy Requirements: Name of Pharmacy: Phone Number: Prescriptions Transferred Date: The patient's co-pay for the medication is $0 [facility] [phone] documented in this encounter Plan of Treatment Upcoming Encounters Date Type Department Care Team (Late st Contact Info) Description 07/15/2024 9:00 AM EST Hospital Encounter [facility] Interventional Radiology [address] [place] [phone] Herve Carrillo MD 3130 [facility] 3200 [place] [phone] documented as of this encounter Visit Diagnoses Not on filedocumented in this encounter Additional Health Concerns Assessment Noted Time PHQ-9 Depression Total Score: 0 08/21/19 11:00 AM EST documented as of this encounter Care Teams Shipping Helper Relationship Specialty Start Date End Date Edgar Fournier MD [address] [place] [address] [place] [address] PCP - General 08/18/17 06/23/21 Maile Valles, JANA Txp Post Coordinator Transplant Hepatology 11/07/17 Jack Ordoñez MD [address] [place] [phone] Consulting Physician Transplant Hepatology 01/05/18 documented as of this encounter
--- OUTSIDE RECORDS SUMMARY | 2024-07-12 13:01 | XMS_ITS | Encounter Summary ---
Author Organization [facility] Address [address] [place] [id number] Care Team Providers Care Photography Intern Name Role Phone Edgar Fournier MD Primary Care Provider [phone] Source Comments This information has been disclosed [...] release of HIV test results or diagnoses. 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); Pre-transplant evaluation for chronic liver disease Social History Tobacco Use Types Packs/Day Years [...] Sign Reading Time Taken Comments Blood Pressure 162/93 10/02/2017 7:00 AM EST Pulse 80 10/02/2017 7:00 AM EST Temperature 36.4 ??C (97.6 ??F) 10/02/2017 7:00 AM ES T Respiratory Rate - - Oxygen Saturation 98% 10/02/2017 7:00 AM EST Inhaled Oxygen Concentration 98% 10/02/2017 7 :00 AM EST Weight 113.9 kg (251 lb) 10/02/2017 7:00 AM EST Height 170.2 cm (5' 7 ) 10/02/2017 7:00 AM EST Body Mass Index 39.31 10/02/2017 7:00 AM EST documented in this encounter Patient Instructions * Patient Instructions* Micha Diaz MD - 10/02/2017 12:00 PM EST Please start zinc tablets Labs as ordered Avoid narcotics as much as possible Try acetaminophen 2 tablets of 500 mg twice a day as needed for pain control Follow up in 3 months documented in this encounter Progress Notes * Connie Hand MA - 10/02/2017 12:00 PM EST Review of Systems Constitutional: Positive for malaise/fatigue. Gastrointestinal: Positive for diarrhea, nausea and vomiting. Musculoskeletal: Positive for back pain. Neurological: Positive for tingling and weakness. * Micha Diaz MD - 10/02/2017 12:00 PM EST I had the pleasure of seeing Mr. Aiden Stauffer in the clinic today for a follow up. As you know, he is a 42 y.o. male with a history of SAL, is here for an initial evaluation. Decompensations include variceal bleed, requiring a TIPS, also on treatment for HE, on lactulose and xifaxan, he never started the zinc tablets. Has some muscle wasting. Pt is eating well. He has had EGDs with banding of his varices. C/O generalized weakness, he tries to walk within the house. ROS as per Epic note. Vitals: 10/02/17 0700 BP: (!) 162/93 Pulse: 80 Temp: 97.6 ??F (36.4 ??C) SpO2: 98% Body mass index is 39.31 kg/m??. Constitutional: The pt is oriented to person, place, and time. Appears well- developed and well-nourished. HENT: Head: Normocephalic and atraumatic. Mouth/Throat: Oropharynx is clear and moist. No oropharyngeal exudate. Eyes: Pupils are equal, round, and reactive to light. + scleral icterus. Neck: Normal range of motion. Cardiovascular: Normal rate, regular rhythm and normal heart sounds. Pulmonary/Chest: Effort normal and breath sounds normal. Abdominal: Soft. Bowel sounds are normal. Musculoskeletal: The patient exhibits 1+ edema. Lymphadenopathy: Pt has no cervical adenopathy. Neurological: The patient is alert and oriented to person, place, and time. Skin: Skin is warm and dry. A&P Thanks Dr. Fournier, for allowing me to participate in the care of this gentleman, with a complex history of liver disease. My assessment is summarized below: Decompensated liver disease, will follow the MELD score. Last MELD was 24, O negative. MELD labs are being repeated today. Continue current treatment for HE, not very well controlled, will add zinc sulfate 220 mg BID. Pt was encouraged to increase his physical activities. Chronic abdominal pain: I have advised him to avoid NSAIDs or narcotics, will recommend acetaminophen, 500 mg, 2 tablets BID as needed. Pt has not had an EGD, s/p TIPS. EGD not indicated. Follow up in 3 months. documented in this encounter Plan of Treatment Upcoming Encounters Date Type Department Care Team (Late st Contact Info) Description 07/15/2024 9:00 AM EST Hospital Encounter [facility] Interventional Radiology [address] [place] [phone] Herve Carrillo MD [address] [facility] [address] [place] [address] documented as of this encounter Results * (ABNORMAL) Protime-INR (10/02/2017 1:43 PM EST) Protime 19.1(H) 11.8 - 14.8 seconds 10/02/2017 2:20 PM EST [facility] Comment:Effective 07/12/2017 , the PT and PTMIX reference range has changed from 11.6 -14.4 sec to 11.8-14.8 sec. INR 1.6(H) 0.9 - 1.1 10/02/2017 2:20 PM EST [facility] Comment: RECOMMENDED THERAPEUTIC RANGES USING INR : ?Stable oral anticoagulant therapy: ? 2.0 - 3.0 ?Mechanical prosthetic heart valve: ? 2.5 - 3.5 ?Recurrent acute myocardial infarction: ? 2.5 - 3.5 Plasma specimen (specimen) 10/02/2017 1:43 PM EST 10/02/2017 1:57 PM EST Narrative [facility] - 10/02/2017 2:20 PM EST Container type->Blue top us Micha Diaz MD LAB BLOOD ORDERABLES Final Resul t [facility] [address] [place], [place] [address] * (ABNORMAL) Hepatic Function Panel (10/02/2017 1:43 PM EST) Total Bilirubin 5.7(H) 0.0 - 1.5 mg/dL 10/02/2017 2:25 PM EST [facility] Bilirubin, Direct 1.51(H) 0.00 - 0.40 mg/dL 10/02/2017 2:25 PM EST [facility] AST 47(H) 13 - 39 U/L 10/02/2017 2:25 PM EST [facility] ALT 24 7 - 52 U/L 10/02/2017 2:25 PM EST [facility] Alkaline Phosphatase 133(H) 36 - 125 U/L 10/02/2017 2:25 PM EST [facility] Total Protein 6.0(L) 6.4 - 8.9 g/dL 10/02/2017 2:25 PM EST [facility] Albumin 3.1(L) 3.5 - 5.7 g/dL 10/02/2017 2:25 PM EST [facility] Bilirubin, Indirect 4.19(H) 0.00 - 1.10 mg/dL 10/02/2017 2:25 PM EST [facility] Plasma specimen (specimen) 10/02/2017 1:43 PM EST 10/02/2017 1:57 PM EST us Micha Diaz MD LAB BLOOD ORDERABLES Final Resul t [facility] [address] * (ABNORMAL) Renal Function Panel w/EGFR (10/02/2017 1:43 PM EST) Sodium 142 133 - 146 mmol/L 10/02/2017 2:25 PM EST [facility] Potassium 3.9 3.5 - 5.3 mmol/L 10/02/2017 2:25 PM EST [facility] Chloride 106 98 - 110 mmol/L 10/02/2017 2:25 PM EST [facility] CO2 23 21 - 33 mmol/L 10/02/2017 2:25 PM EST [facility] Anion Gap 13 3 - 16 mmol/L 10/02/2017 2:25 PM EST [facility] BUN 20 7 - 25 mg/dL 10/02/2017 2:25 PM EST [facility] Creatinine 1.43(H) 0.60 - 1.30 mg/dL 10/02/2017 2:25 PM EST [facility] Glucose 198(H) 70 - 100 mg/dL 10/02/2017 2:25 PM EST [facility] Calcium 9.8 8.6 - 10.3 mg/dL 10/02/2017 2:25 PM EST [facility] Phosphorus 2.9 2.1 - 4.7 mg/dL 10/02/2017 2:25 PM EST [facility] Albumin 3.1(L) 3.5 - 5.7 g/dL 10/02/2017 2:25 PM EST [facility] Osmolality, Calculated 302 278 - 305 mOsm/kg 10/02/2017 2:25 PM EST [facility] eGFR AA CKD-EPI 69 See note. 8 2:25 PM EST [facility] eGFR NONAA CKD-EPI 60 See note. 10/02/2017 2:25 PM EST [facility] Plasma specimen (specimen) 10/02/2017 1:43 PM EST 10/02/2017 1:57 PM EST Narrative [facility] - 10/02/2017 2:25 PM EST As of 10/13/2015 the estimated [...] equation to estimate glomerular filtration rate. ??[facility] [employer] [facility]. 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
--- OUTSIDE RECORDS SUMMARY | 2024-07-12 13:01 | XMS_ITS | Encounter Summary ---
Author Organization [facility] Address [facility] [place] [address] Care Team Providers Care Executive Community Planning Name Role Phone Edgar Fournier MD Primary Care Provider [phone] Source Comments This information has been disclosed [...] release of HIV test results or diagnoses. [id number] Health Reason for Visit * Auth/Cert Specialty Diagnoses / Procedures Referred By Contvidal t Referred To Contact Surgical Intensive Care Diagnoses S/P liver transplant (CMS-HCC) LIVER TRANSPLANT Procedures TRANSPLANT LIVER [facility] SICU [address] [place] [address] Phone: tel: Referral ID Status Reason Start Date Expiration Date Visits Re quested Visits Authorized [id number] 1 1 Encounter Details Date Type Department Care Team (Late st Contact Info) Description 10/08/2017 7:41 AM EST Anesthesia Event [facility] PERIOP [address] [place] [address] Gloria Dias MD [address] [place] [id number] Humza Agudelo DO [address] [place] [address] Anesthesia Record Procedure Summary Procedure Name Responsible Anesthesiologist Anesthesia Start Time Anesthesia Stop Time TRANSPLANT LIVER (Abdomen) Gloria Dias MD 10/08/17 0741 10/08/17 1331 Events Date Time Event Comment 10/08/2017 0720 Anesthesia Prep Start 0741 An Start 0741 An Start Data 0750 An Induction 0752 An Intubation 0900 Time Out 1041 Anhepatic Phase 1053 Hepatic Reperfusion 1149 Closing Phase 1320 An Emergence 1320 an stop data 1331 An Stop 1334 Follow-up Needed Meds Name Total lidocaine (XYLOCAINE) 20 mg/mL (2%) inje ction 100 mg fentanyl IV (SUBLIMAZE) injection 50 mcg /ml 350 mcg midazolam (VERSED) injection 1 mg/ml 2 m g succinylcholine (QUELICIN) 20 mg/mL inje ction 140 mg propofol (DIPRIVAN) 10 mg/ml IV injectio n (BOLUS) 220 mg vecuronium (NORCURON) injection 20 mg heparin (porcine) injection 5,000 Units 5,000 Units fluconazole (DIFLUCAN) 200 mg IV in NaCl (iso-osm) 100 mL 200 mg calcium chloride 10% injection IV Syring e 1.5 g norepinephrine (LEVOPHED) 0. 064 mg/mL in sodium chloride 0.9 % 250 mL infusion 249 mcg methylPREDNISolone sodium waters ccinate (SOLU-medrol) 500 mg in sodium chloride 0.9 % 100 mL IVPB 500 mg heparin (porcine) injection 1,000 units/ mL 3,000 Units EPINEPHrine (ADRENALIN) 10 mg in sodium chloride 0.9% 250 mL infusion 67 mcg sodium bicarb 8.4% (1 mEq/mL) injection 35 mEq insulin regular (HumuLIN R) 1 Units/mL in sodium chloride 0.9 % 100 mL infusion 6.07 Units propofol (DIPRIVAN) 10 mg/ml infusion - 100mL VIAL SIZE 282.12 mg lactated ringers infusion 900 mL electrolyte-r (pH 7.4)(NORMOSOL-R pH 7.4 ) IV soln 1000 mL 2,100 mL 0.9% NaCl infusion 1,000 mL * Agents Name N2O O2 N2O Air Sevoflurane * Blood No blood administrations on file. Lines, Drains, and Airways Type Details Placement Removal Anesthesia Airway Device I.V., Rapid Sequence; Standard; cricoid pressure; Laryngoscope Handle; Mac; 3; Oral; Grade I View; ETT; 8 mm; Cuffed (To seal); 21 cm; Stylet Standard; 1; Resident; MD Nemo; Capnograph; Yes; 01/14/19; 1044 10/08/17 0911 by 01/14/19 1044 by Raquel Burger RN Arterial Line OR; Sterile; 20; Rig ht; Radial; Chlorhexidine; 1; Steri-strips; Tolerated well 10/08/17 0911 by 10/12/17 2235 by Laura Lundberg RN Peripheral IV 10/08/17; 18 G; Left 10/08/17 00 00 by Esther Don RN 10/14/17 0200 by Gem Sánchez RN NG/OG Tube 10/08/17; Orogastric ; Right mouth; (removed with ETT during extubation) 10/08/17 0000 by Paulina Suazo RN 10/09/17 1033 by Latrice Silvestre RN Urethral Catheter 10/08/17; 0756; Straight-tip; 16 Fr.; Tolerated well; Per order 10/08/17 0756 by Gabino Schwartz RN 10/11/17 0617 by Skylar Terrazas RN ETT 10/08/17; 0800; 8 mm ; Cuffed; 23 cm; Lips; Commercial tube saravia; Breath Sounds Confirmed 10/08/17 0800 by Sonu Gaines, DIRECTOR [employer] 10/09/17 0941 by Cecelia Parmar Introducer 10/08/17; 0953 (aziza betancur via procedure documentation); 10/12/17; 1530 10/08/17 0953 by Patricio Bush MD 10/12/17 1530 by Rachel James RN Incision 10/08/17; 1013; Abdomen; DSD tegaderm; 01/14/19; 1044 10/08/17 1013 by Gabino Schwartz RN 01/14/19 1044 by Raquel Burger RN Drain 10/08/17; 1217; 1; Liver; Abdomen; Right; 19 Fr.; 1230 10/08/17 1217 by Gabino Schwartz RN 10/10/17 1230 by Latrice Silvestre RN Drain 10/08/17; 1219; 2; Liver; Abdomen; Right; 19 Fr.; Per protocol (Removed by transplant ) 10/08/17 1219 by Gabino Schwartz RN 10/13/17 0000 by Jaquelin Saucedo RN documented in this encounter Social History [...] of this encounter Progress Notes * Gloria Dias MD - 10/09/2017 11:51 AM EST Anesthesia Post Note Patient: Aiden Stauffer Procedure(s) Performed: Procedure(s): TRANSPLANT LIVER Anesthesia type: general Patient location: ICU Post pain: Adequate analgesia Post assessment: no apparent anesthetic complications Last Vitals: Vitals: 10/09/17 0900 10/09/17 0941 10/09/17 1000 10/09/17 1100 BP: 104/56 (!) 178/103 141/83 BP Location: Patient Position: Pulse: 100 101 111 Resp: Temp: TempSrc: SpO2: 96% 96% 96% 96% Weight: Height: Post vital signs: stable Level of consciousness: awake and alert Complications: None documented in this encounter H&P Notes * Gloria Dias MD - 10/08/2017 6:29 AM EST [facility] DEPARTMENT OF ANESTHESIOLOGY PRE-PROCEDURAL EVALUATION Aiden Stauffer is a 42 y.o. 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 No history of anesthetic complications I have reviewed the History and Physical Exam, any relevant changes are noted in the anesthesia pre-operative evaluation. Cardiovascular: Exercise tolerance: Pérez Met score: 4 - Raking leaves. Weeding or pushing a power mower.Hypertension is. (-) past MT, CAD, CHF, no hyperlipidemia. ROS comment: ECHO with bubble study 04/04/2017 Interpretation Summary: A complete two-dimensional transthoracic echo was performed. The study was technically adequate. Compared to the most recently available prior to echo and allowing for differences in the image quality and technique, there is no significant interval change noted. EF: 69% ?? Myocardial perfusion 04/04/2017 Impression: 1. This is a normal nuclear stress test 2. There is no clinical hemodynamic or echocardiographic evidence for myocardial ischemia during vasodilator infusion 3. Perfusion: SPECT images demonstrate normal perfusion. 4. Function: Gated SPECT images demonstrate normal systolic function. LVEF is 64%. Regional wall motion is normal. LV wall thickening appears concordantly normal. 5.There is a previous exam/ereport available for comparison. There are no interval changes comparedto the previous study on 04/29/16. Neuro/Muscoloskeletal/Psych: (-) seizures, TIA, CVA, headaches. Pulmonary: (-) COPD, asthma, sleep apnea. GI/Hepatic/Renal: (+) liver disease and end stage liver disease ( SAL). GERD is well controlled. Chronic renal disease ( creaitnine 1.5), CRI. Endo/Other: (+) anemia ( hemoglobin 10.1), thrombocytopenia ( platelet 127k) and bleeding disorder ( INR 1.6). Diabetes. (-) hypothyroidism. No opiate use Past Medical History Past Medical History: Diagnosis Date ??? Acute pancreatitis ??? Ascites ??? Diabetes mellitus (HCC) ??? Esophageal varices with bleeding (HCC) ??? GERD (gastroesophageal reflux disease) ??? Hepatic encephalopathy (HCC) ??? Hypertension ??? 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 Vitamin D deficiency Past Surgical History [...] Allergen Reactions ??? Codeine ??? Flexeril [Cyclobenzaprine] Home Meds: Prior to Admission medications as of 10/08/17 0606 Medication Sig Taking? carvedilol (COREG) 25 MG tablet Take 25 mg by mouth 2 times a day with meals. ergocalciferol (ERGOCALCIFEROL) 50,000 unit capsule Take 50,000 Units by mouth once a week. esomeprazole (NEXIUM) 40 MG capsule Take 40 mg by mouth every morning before breakfast. gabapentin (NEURONTIN) 600 MG tablet Take 600 mg by mouth 3 times a day. glimepiride (AMARYL) 1 MG tablet Take 1 mg by mouth before breakfast. insulin glargine (BASAGLAR KWIKPEN) 100 unit/mL (3 mL) InPn Inject 40 Units subcutaneously at bedtime. insulin glulisine (APIDRA SOLOSTAR) 100 unit/mL InPn Inject subcutaneously. lactulose (CHRONULAC) 10 gram/15 mL solution Take 20 g by mouth 3 times a day. Indications: HepaticEncephalopathy losartan (COZAAR) 50 MG tablet Take 50 mg by mouth daily. metFORMIN ER (GLUMETZA) 1000 MG (MOD) 24 hr tablet Take 1,000 mg by mouth 2 times a day with meals. rifAXIMin (XIFAXAN) 550 mg Tab tablet Take 550 mg by mouth 2 times a day. tiZANidine (ZANAFLEX) 4 MG capsule Take 0.5 mg by mouth at bedtime as needed for Muscle spasms. zinc sulfate (ZINCATE) 220 (50) mg capsule Take 1 capsule (220 mg total) by mouth 2 times a day. Inpatient Meds: Scheduled: ??? cefTRIAXone (ROCEPHIN) IVPB 2 g Intravenous Once ??? fluconazole in NaCl (iso-osm) 200 mg Intravenous Once ??? heparin (porcine) 5,000 Units Subcutaneous Once ??? labetalol ??? methylprednisolone (SOLU-medrol) IV 500 mg Intravenous Once Continuous: ??? EPINEPHrine (ADRENALIN) 10 mg in sodium chloride 0.9% 250 mL infusion ??? insulin (HumuLIN R) infusion ??? norepinephrine infusion PRN: labetalol Vital Signs Wt Readings from Last 3 Encounters: 10/08/17 (!) 256 lb (116.1 kg) 10/02/17 (!) 251 lb (113.9 kg) 08/31/17 (!) 255 lb (115.7 kg) Ht Readings from Last 3 Encounters: 10/02/17 5' 7 (1.702 m) 08/31/17 5' 7 (1.702 m) 08/21/17 5' 7 (1.702 m) Temp Readings from Last 3 Encounters: 10/08/17 98.4 ??F (36.9 ??C) (Temporal) 10/02/17 97.6 ??F (36.4 ??C) (Oral) 08/31/17 97.5 ??F (36.4 ??C) (Oral) BP Readings from Last 3 Encounters: 10/08/17 (!) 211/109 10/02/17 (!) 162/93 08/31/17 176/84 Pulse Readings from Last 3 Encounters: 10/08/17 86 10/02/17 80 08/31/17 83 @LASTSAO2(3)@ Physical Exam Airway: Dental: Pulmonary: Cardiovascular: Neuro/Musculoskeletal/Psych: Abdominal: Current OB Status: Other Findings: Laboratory Data Lab Results Component Value Date WBC 2.7 (L) 10/08/2017 HGB 10.1 (L) 10/08/2017 HCT 27.7 (L) 10/08/2017 MCV 108.2 (H) 10/08/2017 PLT 129 (L) 10/08/2017 [facility] Results Component Value Date GLUCOSE 370 (H) 10/08/2017 BUN 21 10/08/2017 CO2 23 10/08/2017 CREATININE 1.57 (H) 10/08/2017 K 4.3 10/08/2017 NA 142 10/08/2017 CL 109 10/08/2017 CALCIUM 9.9 10/08/2017 ALBUMIN 3.0 (L) 10/08/2017 ALBUMIN 3.0 (L) 10/08/2017 PROT 5.9 (L) 10/08/2017 ALKPHOS 148 (H) 10/08/2017 ALT 24 10/08/2017 AST 52 (H) 10/08/2017 BILITOT 5.8 (H) 10/08/2017 Lab Results Component Value Date INR 1.6 (H) 10/08/2017 No results found for: PREGTESTUR, PREGSERUM, HCG, HCGQUANT Anesthesia Plan ASA 4 Planned PONV prophylaxis. Anesthesia Type: general. (GETA with RSI, PIV x1 plus MAC x2, standard monitors plus radial and femoral arterial line plus swan viviana catheter, multimodal analgesia, PONV prophylaxis, ICU post op. 10 pRBC and 10 FFP in room to start the case. Pads on the patient) Intravenous induction. Anesthetic plan and risks discussed with patient. Plan, alternatives, and risks of anesthesia, including , have been explained to and discussed with the patient/legal guardian. By my assessment, the patient/legal guardian understands and agrees. Scenario presented in detail. Questions answered. Use of blood products discussed with patient whom consented to blood products. Plan discussed with attending and resident. documented in this encounter Procedure Notes * Patricio Bush MD - 10/08/2017 9:18 AM ESTAssociated Order(s): MIKE TORRES Mike Torres Cath Date/Time: 10/08/2017 9:18 AM Performed by: PATRICIO BUSH Authorized by: GLORIA DIAS Consent: Verbal consent obtained. Risks and benefits: risks, benefits and alternatives were discussed Consent given by: patient Patient understanding: patient states understanding of the procedure being performed Patient consent: the patient's understanding of the procedure matches consent given Procedure consent: procedure consent matches procedure scheduled Relevant documents: relevant documents present and verified Test results: test results available and properly labeled Required items: required blood products, implants, devices, and special equipment available Patient identity confirmed: verbally with patient and arm band Time out: Immediately prior to procedure a time out was called to verify the correct patient, procedure, equipment, system support analyst and site/side marked as required. Preparation: Patient was prepped and draped in the usual sterile fashion. Local anesthesia used: no Anesthesia: Local anesthesia used: no Sedation: Patient sedated: yes (Under GA) Vitals: Vital signs were monitored during sedation. Patient tolerance: Patient tolerated the procedure well with no immediate complications * Patricio Bush MD - 10/08/2017 9:17 AM ESTAssociated Order(s): CENTRAL LINE Central Line Date/Time: 10/08/2017 9:17 AM Performed by: PATRICIO BUSH Consent: Verbal consent obtained. Risks and benefits: risks, benefits and alternatives were discussed Consent given by: patient Patient understanding: patient states understanding of the procedure being performed Patient consent: the patient's understanding of the procedure matches consent given Procedure consent: procedure consent matches procedure scheduled Relevant documents: relevant documents present and verified Test results: test results available and properly labeled Required items: required blood products, implants, devices, and special equipment available Patient identity confirmed: verbally with patient and arm band Time out: Immediately prior to procedure a time out was called to verify the correct patient, procedure, equipment, system support analyst and site/side marked as required. Catheter type: introducer Indication(s): vascular access and hemodynamic monitoring Patient location at time of line placement: OR Conditions of line placement: sterile Preparation: skin prepped with 2% chlorhexidine Location details: right internal jugular Catheter size: 9 Fr Catheter fully inserted (hub at skin): yes Insertion guided by: ultrasound Number of attempts: 1 Successful placement: yes Post procedure chest x-ray ordered: no (Per ICU team) Complications: none * Patricio Bush MD - 10/08/2017 9:15 AM ESTAssociated Order(s): INSERT ARTERIAL LINE Insert Arterial Line Date/Time: 10/08/2017 9:15 AM Performed by: PATRICIO BUSH Authorized by: GLORIA DIAS Consent: Verbal consent obtained. Risks and benefits: risks, benefits and alternatives were discussed Consent given by: patient Patient understanding: patient states understanding of the procedure being performed Patient consent: the patient's understanding of the procedure matches consent given Procedure consent: procedure consent matches procedure scheduled Relevant documents: relevant documents present and verified Test results: test results available and properly labeled Required items: required blood products, implants, devices, and special equipment available Patient identity confirmed: verbally with patient and arm band Time out: Immediately prior to procedure a time out was called to verify the correct patient, procedure, equipment, system support analyst and site/side marked as required. Preparation: Patient was prepped and draped in the usual sterile fashion. Indications: multiple ABGs and hemodynamic monitoring Location: right radial Sedation: Patient sedated: yes (Under GA) Michael's test normal: yes Needle gauge: 20 Seldinger technique: Seldinger technique used Ultrasound guidance used during line insertion: no Number of attempts: 1 Post-procedure: dressing applied Post-procedure CMS: unchanged Patient tolerance: Patient tolerated the procedure well with no immediate complications Complications: none documented in this encounter Plan of Treatment Upcoming Encounters Date Type Department Care Team (Late st Contact Info) Description 07/15/2024 9:00 AM EST Hospital Encounter [facility] Interventional Radiology [address] [place] [address] Herve Carrillo MD [address] [facility] [address] [facility] [place] [address] documented as of this encounter Procedures Procedure Name Priority Date/Time Associated Diagnosis Comments MIKE Ortiz 10/08/2017 9:18 AM EST Procedure Note - Patricio Bush MD - 10/08/2017 9:18 AM ESTThis note is in progress. Holloway Viviana Cath Date/Time: 10/08/2017 9:18 AM Performed by: PATRICIO BUSH Authorized by: GLORIA DIAS Consent: Verbal consent obtained. Risks and benefits: risks, benefits and alternatives were discussed Consent given by: patient Patient understanding: patient states understanding of the procedure beingperformed Patient consent: the patient's understanding of the procedure matchesconsent given Procedure consent: procedure consent matches procedure scheduled Relevant documents: relevant documents present and verified Test results: test results available and properly labeled Required items: required blood products, implants, devices, and specialequipment available Patient identity confirmed: verbally with patient and arm band Time out: Immediately prior to procedure a time out was called to verifythe correct patient, procedure, equipment, system support analyst and site/sidemarked as required. Preparation: Patient was prepped and draped in the usual sterilefashion. Local anesthesia used: no Anesthesia: Local anesthesia used: no Sedation: Patient sedated: yes (Under GA) Vitals: Vital signs were monitored during sedation. Patient tolerance: Patient tolerated the procedure well with no immediatecomplications CENTRAL LINE Routine 10/08/2017 9:17 AM EST Procedure Note - Patricio Bush MD - 10/08/2017 9:17 AM ESTThis note is in progress. Central Line Date/Time: 10/08/2017 9:17 AM Performed by: PATRICIO BUSH Consent: Verbal consent obtained. Risks and benefits: risks, benefits and alternatives were discussed Consent given by: patient Patient understanding: patient states understanding of the procedure beingperformed Patient consent: the patient's understanding of the procedure matchesconsent given Procedure consent: procedure consent matches procedure scheduled Relevant documents: relevant documents present and verified Test results: test results available and properly labeled Required items: required blood products, implants, devices, and specialequipment available Patient identity confirmed: verbally with patient and arm band Time out: Immediately prior to procedure a time out was called to verifythe correct patient, procedure, equipment, system support analyst and site/sidemarked as required. Catheter type: introducer Indication(s): vascular access and hemodynamic monitoring Patient location at time of line placement: OR Conditions of line placement: sterile Preparation: skin prepped with 2% chlorhexidine Location details: right internal jugular Catheter size: 9 Fr Catheter fully inserted (hub at skin): yes Insertion guided by: ultrasound Number of attempts: 1 Successful placement: yes Post procedure chest x-ray ordered: no (Per ICU team) Complications: none INSERT ARTERIAL LINE Routine 10/08/2017 9:15 AM EST Procedure Note - Patricio Bush MD - 10/08/2017 9:15 AM ESTThis note is in progress. Insert Arterial Line Date/Time: 10/08/2017 9:15 AM Performed by: PATRICIO BUSH Authorized by: GLORIA DIAS Consent: Verbal consent obtained. Risks and benefits: risks, benefits and alternatives were discussed Consent given by: patient Patient understanding: patient states understanding of the procedure beingperformed Patient consent: the patient's understanding of the procedure matchesconsent given Procedure consent: procedure consent matches procedure scheduled Relevant documents: relevant documents present and verified Test results: test results available and properly labeled Required items: required blood products, implants, devices, and specialequipment available Patient identity confirmed: verbally with patient and arm band Time out: Immediately prior to procedure a time out was called to verifythe correct patient, procedure, equipment, system support analyst and site/sidemarked as required. Preparation: Patient was prepped and draped in the usual sterilefashion. Indications: multiple ABGs and hemodynamic monitoring Location: right radial Sedation: Patient sedated: yes (Under GA) Michael's test normal: yes Needle gauge: 20 Seldinger technique: Seldinger technique used Ultrasound guidance used during line insertion: no Number of attempts: 1 Post-procedure: dressing applied Post-procedure CMS: unchanged Patient tolerance: Patient tolerated the procedure well with no immediatecomplications Complications: none documented in this encounter Visit Diagnoses * Transfer of Care - Yaneli Chester MD - 10/08/2017 1:31 PM EST Anesthesia Transfer of Care Note Patient: Aiden Stauffer Procedure(s) Performed: Procedure(s): TRANSPLANT LIVER Patient location: ICU Anesthesia type: general Airway Device on Arrival to PACU/ICU: Endotracheal Tube IV Access: Peripheral and Central Line Monitors Recommended to be Used During PACU/ICU: Arterial Line, CVP, PA Catheter and Standard Monitors Outstanding Issues to Address: None Level of Consciousness: sedated Post vital signs: Vitals: 10/08/17 1332 BP: 163/70 Pulse: 85 Resp: 16 Temp: 98.2*F SpO2: 96% Complications: None Date 10/07/17 0700 - 10/08/17 0659 10/08/17 0700 - 10/09/17 0659 Shift 5495-3608 7164-9096 4165-9582 24 Hour Total 2864-5502 4130-2651 1569-1924 24 Hour Total I N T A K E I.V. 3900 (33.6) 3900 (33.6) Volume (mL) (lactated Ringers infusion) 900 900 Volume (mL) (electrolyte-R (pH 7.4) (NORMOSOL-R pH 7.4) iv solution SolP) 2000 2000 Volume (mL) (sodium chloride 0.9 % infusion) 1000 1000 Blood 2473 2473 PRBC - Units 2 x 2 x PRBC - Volume 584 584 FFP - Units 5 x 5 x FFP - Volume 638 638 Platelets - Volume 1 1 Cell Saver - Volume 1250 1250 Shift Total (mL/kg) 6373 (54.9) 6373 (54.9) O U T P U T Urine 375 375 Urine 375 375 Blood 2800 2800 Est Blood Loss 2800 2800 Shift Total (mL/kg) 3175 (27.3) 3175 (27.3) Weight (kg) 116.1 116.1 116.1 116.1 116.1 116.1 documented in this encounter Administered Medications Inactive Administered Medications - up to 3 most recent administrations Medication Order MAR Action Action Date Dose Rate Site calcium chloride 100 mg/mL (10 %) injection PRN - One Step Medication Only, Starting on Mon10/08/17 at 0927, Anesthesia Intra-op Given 10/08/2017 9:50 AM EST 0.5 g Given 10/08/2017 9:44 AM EST 0.5 g Given 10/08/2017 9:27 AM EST 0.5 g electrolyte-R (pH 7.4) (NORMOSOL-R pH 7.4) iv solution SolP Continuous - One Step Medications Only, Starting on 10/08/17 at 0815, Anesthesia Intra-op New Bag 10/08/2017 12:59 PM EST New Bag 10/08/2017 10:11 AM EST New Bag 10/08/2017 8:15 AM EST EPINEPHrine (ADRENALIN) 10 mg in sodium chloride 0.9% 250 mL infusion 1-15 mcg/min (1.5-22.5 mL/hr), Intravenous, Continuous, Starting on 10/08/17 at 0230, For 12 hours, FOR OR USE ONLY. TITRATE IN OR. Concentration: 0.04 mg/mL = 10 mg/250 mL. PROTECT FROM LIGHT. CMU Tele Monitoring required, do not discontinue CMU., Intra-op New Bag 10/08/2017 10:24 AM EST 1 mcg/min 1.5 mL/hr fentaNYL (SUBLIMAZE) injection Intravenous, PRN - One Step Medication Only, Starting on 10/08/17 at 0741, Anesthesia Intra-op Given 10/08/2017 1:25 PM EST 100 mcg Given 10/08/2017 12:20 PM EST 75 mcg Given 10/08/2017 11:18 AM EST 75 mcg fluconazole (DIFLUCAN) 200 mg IV in NaCl (iso-osm) 100 mL 200 mg, Intravenous, Administer over 60 Minutes, Once, On 10/08/17 at 0530, For 1 dose, DO NOT REFRIGERATE., Pre-op Given 10/08/2017 8:59 AM EST 200 mg heparin (porcine) injection 5,000 Units 5,000 Units, Subcutaneous, Once, On 10/08/17 at 0530, For 1 dose, Pre-op Given 10/08/2017 8:11 AM EST 5,000 Units heparin (porcine) injection PRN - One Step Medication Only, Other, Starting on 10/08/17 at 1015, Anesthesia Intra-op Given 10/08/2017 10:15 AM EST 3,000 Units insulin regular (HumuLIN R) 1 Units/mL in sodium chloride 0.9 % 100 mL infusion 0.05-0.15 Units/kg/hr ? 116.1 kg (5.805-17.415 mL/hr, rounded to 5.8-17.4 mL/hr), Intravenous, Continuous, Starting on 10/08/17 at 0230, For 12 hours, FOR OR USE ONLY HIGH ALERT MEDICATION, Intra-op Rate/Dose Change 10/08/2017 12:35 PM EST 4 Units/hr 4 mL/hr Rate/Dose Change 10/08/2017 12:10 PM EST 2 Units/hr 2 mL/h r New Bag 10/08/2017 11:40 AM EST 3 Units/hr 3 mL/hr lactated Ringers infusion Continuous - One Step Medications Only, Starting on 10/08/17 at 0741, Anesthesia Intra-op New Bag 10/08/2017 7:41 AM EST lidocaine (PF) 20 mg/mL (2 %) Soln Intravenous, PRN - One Step Medication Only, Starting on 10/08/17 at 0741, Anesthesia Intra-op Given 10/08/2017 7:41 AM EST 100 mg methylPREDNISolone sodium succinate (SOLU-medrol) 500 mg in sodium chloride 0.9 % 100 mL IVPB 500 mg, Intravenous, at 200 mL/hr, Once, On 10/08/17 at 0530, For 1 dose, Pharmacy: DO NOT mix until patient is called to the pre-op area. To be infused in the OR., Pre-op New Bag 10/08/2017 10:39 AM EST 500 mg midazolam (PF) (VERSED) injection PRN - One Step Medication Only, Anxiety, Starting on 10/08/17 at 0735, Anesthesia Intra-op Given 10/08/2017 7:35 AM EST 2 mg norepinephrine (LEVOPHED) 0.064 mg/mL in sodium chloride 0.9 % 250 mL infusion 0.5-30 mcg/min (0.4688-28.125 mL/hr, rounded to 0.5-28.1 mL/hr), Intravenous, Continuous, Starting on [place] 10/08/17 at 0230, For 12 hours, FOR OR USE ONLY. INFUSE VIA CENTRAL LINE ONLY, Intra-op Rate/Dose Change 10/08/2017 11:17 AM EST 1 mcg/min 0.9 mL/hr Rate/Dose Change 10/08/2017 11:00 AM EST 2 mcg/min 1.9 mL /hr Rate/Dose Change 10/08/2017 10:16 AM EST 4 mcg/min 3.8 mL /hr propofol (DIPRIVAN) infusion 10 mg/mL Continuous - One Step Medications Only, Starting on 10/08/17 at 1210, Anesthesia Intra-op New Bag 10/08/2017 12:10 PM EST 30 mcg/kg/min 20.9 mL/hr propofol 10 mg/ml (DIPRIVAN) injection PRN - One Step Medication Only, Starting on 10/08/17 at 0741, Anesthesia Intra-op Given 10/08/2017 8:17 AM EST 20 mg Given 10/08/2017 7:41 AM EST 200 mg sodium bicarbonate 8.4 % (1 mEq/mL) injection PRN - One Step Medication Only, Starting on 10/08/17 at 1114, Anesthesia Intra-op Given 10/08/2017 11:14 AM EST 35 mEq sodium chloride 0.9 % infusion Continuous - One Step Medications Only, Starting on 10/08/17 at 0815, Anesthesia Intra-op New Bag 10/08/2017 8:15 AM EST succinylcholine (QUELICIN) injection PRN - One Step Medication Only, Starting on 10/08/17 at 0741, Anesthesia Intra-op Given 10/08/2017 7:41 AM EST 140 mg vecuronium (NORCURON) injection PRN - One Step Medication Only, Starting on 10/08/17 at 0744, Anesthesia Intra-op Given 10/08/2017 10:51 AM EST 5 mg Given 10/08/2017 9:05 AM EST 5 mg Given 10/08/2017 7:44 AM EST 10 mg documented in this encounter Additional Health Concerns Assessment Noted Time PHQ-9 Depression Total Score: 0 08/21/19 18 11:00 AM EST documented as of this encounter Care Teams Executive Community Planning Relationship Specialty Start Date End Date Edgar Fournier MD [address] [place] [address] PCP - General 08/18/17 06/23/21 documented as of this encounter
--- OUTSIDE RECORDS SUMMARY | 2024-07-12 13:01 | XMS_ITS | Encounter Summary ---
Author Organization [facility] Address [facility] [place] [address] Care Team Providers Care Carpet Layer Helper Name Role Phone Edgar Fournier MD Primary Care Provider [phone] Source Comments This information has been disclosed [...] release of HIV test results or diagnoses. 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); Pre-transplant evaluation for chronic liver disease Social [...] Hospital Encounter [facility] Interventional Radiology [address] [place] [phone] Herve Carrillo MD [address] [place] [address] documented as of this encounter Procedures Procedure Name Priority Date/Time Associated Diagnosis Comments HEPATIC FUNCTION PANEL Routine 10/02/2017 1:43 PM EST Liver 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) Pre-transplant evaluation for chronic liver disease RENAL FUNCTION PANEL W/EGFR Routine 10/02/2017 1:43 PM EST 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 INR 1.6(H) 0.9 - 1.1 10/02/2017 2:20 PM EST [facility] Comment: RECOMMENDED THERAPEUTIC RANGES USING INR : ?Stable oral anticoagulant therapy: ? 2.0 - 3.0 ?Mechanical prosthetic heart valve: ? 2.5 - 3.5 ?Recurrent acute myocardial infarction: ? 2.5 - 3.5 Plasma specimen (specimen) 10/02/2017 1:43 PM EST 10/02/2017 1:57 PM EST Narrative [facility] - 10/02/2017 2:20 PM EST Container type->Blue top Micha Diaz MD LAB BLOOD ORDERABLES Final Resul t Performing Organization Address City/State/[facility] Co de Phone Number [facility] [address] [place] [address], [facility] * (ABNORMAL) Hepatic Function Panel (10/02/2017 1:43 PM EST) Total Bilirubin 5.7(H) 0.0 - 1.5 mg/dL 10/02/2017 2:25 PM EST [facility] Bilirubin, Direct 1.51(H) 0.00 - 0.40 mg/dL 10/02/2017 2:25 PM EST [facility] AST 47(H) 13 - 39 U/L 10/02/2017 2:25 PM EST [facility] ALT 24 7 - 52 U/L 10/02/2017 2:25 PM EST [facility] Alkaline Phosphatase 133(H) 36 - 125 U/L 10/02/2017 2:25 PM EST [facility] Total Protein 6.0(L) 6.4 - 8.9 g/dL 10/02/2017 2:25 PM EST [facility] Albumin 3.1(L) 3.5 - 5.7 g/dL 10/02/2017 2:25 PM EST [facility] Bilirubin, Indirect 4.19(H) 0.00 - 1.10 mg/dL 10/02/2017 2:25 PM EST [facility] Plasma specimen (specimen) 10/02/2017 1:43 PM EST 10/02/2017 1:57 PM EST Micha Diaz MD LAB BLOOD ORDERABLES Final Resul t [facility] [address] [facility] [place] [address], [facility] * (ABNORMAL) Renal Function Panel w/EGFR (10/02/2017 1:43 PM EST) Sodium 142 133 - 146 mmol/L 10/02/2017 2:25 PM EST [facility] Potassium 3.9 3.5 - 5.3 mmol/L 10/02/2017 2:25 PM EST [facility] Chloride 106 98 - 110 mmol/L 10/02/2017 2:25 PM EST [facility] CO2 23 21 - 33 mmol/L 10/02/2017 2:25 PM EST [facility] Anion Gap 13 3 - 16 mmol/L 10/02/2017 2:25 PM EST [facility] BUN 20 7 - 25 mg/dL 10/02/2017 2:25 PM EST [facility] Creatinine 1.43(H) 0.60 - 1.30 mg/dL 10/02/2017 2:25 PM EST [facility] Glucose 198(H) 70 - 100 mg/dL 10/02/2017 2:25 PM EST [facility] Calcium 9.8 8.6 - 10.3 mg/dL 10/02/2017 2:25 PM EST [facility] Phosphorus 2.9 2.1 - 4.7 mg/dL 10/02/2017 2:25 PM EST [facility] Albumin 3.1(L) 3.5 - 5.7 g/dL 10/02/2017 2:25 PM EST [facility] Osmolality, Calculated 302 278 - 305 mOsm/kg 10/02/2017 2:25 PM EST [facility] eGFR AA CKD-EPI 69 See note. 8 2:25 PM EST [facility] eGFR NONAA CKD-EPI 60 See note. 10/02/2017 2:25 PM EST [facility] Plasma specimen (specimen) 10/02/2017 1:43 PM EST 10/02/2017 1:57 PM EST Narrative [facility] - 10/02/2017 2:25 PM EST As [...] equation to estimate glomerular filtration rate. ??Jennifer Owner Consulting Engineer Med. 2009:150(9):604-12 us Micha Diaz MD LAB BLOOD ORDERABLES Final Resul t [facility] [address] documented in this encounter Visit Diagnoses Diagnosis Liver 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) Pre-transplant evaluation for chronic liver disease documented in this encounter Additional Health Concerns Assessment Noted Time PHQ-9 Depression Total Score: 0 08/21/19 18 11:00 AM EST documented as of this encounter Care Teams Carpet Layer Helper Relationship Specialty Start Date End Date [place] [address] PCP - General 08/18/17 06/23/21 documented as of this encounter
--- OUTSIDE RECORDS SUMMARY | 2024-07-12 13:01 | XMS_ITS | Encounter Summary ---
Author Organization Health Address [facility] [place] [address] Care Team Providers Care Photovoltaic Solar Cell Designer Name Role Phone Edgar Fournier MD Primary Care Provider [phone] Source Comments This information has been disclosed [...] release of HIV test results or diagnoses. [id number] Health Encounter Details Date Type Department Care Team (Late st Contact Info) Description 10/02/2017 Chart Note [facility] Liver Transplant at Outpatient [address] [address] Aleta Worthington, RN MELD lab values were successfully updated in [facility] and were accurately Social History Tobacco Use Types Packs/Day Years [...] Progress Notes * Aleta Worthington RN - 10/02/2017 2:39 PM EST MELD lab values were successfully updated in [facility] and were accurately updated with the most recent labs. The new MELD Score is 21. documented in this encounter Plan of Treatment Upcoming Encounters Date Type Department Care Team (Late st Contact Info) Description 07/15/2024 9:00 AM EST Hospital Encounter [facility] Interventional Radiology [address] [place] [phone] Herve Carrillo MD [address] [facility] [address] [place] [phone] documented as of this encounter Visit Diagnoses Not on filedocumented in this encounter Additional Health Concerns Assessment Noted Time PHQ-9 Depression Total Score: 0 08/21/19 18 11:00 AM EST documented as of this encounter Care Teams Photovoltaic Solar Cell Designer Relationship Specialty Start Date End Date [place] [address] PCP - General 08/18/17 06/23/21 documented as of this encounter
--- OUTSIDE RECORDS SUMMARY | 2024-07-12 13:01 | XMS_ITS | Encounter Summary ---
Author Organization [facility] Address [address] [address] [place] [address] Care Team Providers Care Internet Cafe Manager Name Role Phone Edgar Fournier MD Primary Care Provider [phone] Source Comments This information has been disclosed [...] release of HIV test results or diagnoses. [id number] Health Reason for Visit * Auth/Cert Specialty Diagnoses / Procedures Referred By Contvidal t Referred To Contact Surgical Intensive Care Diagnoses S/P liver transplant (CMS-HCC) LIVER TRANSPLANT Procedures TRANSPLANT LIVER [facility] SICU [address] [place] [address] Phone: tel: Referral ID Status Reason Start Date Expiration Date Visits Re quested Visits Authorized [id number] 1 1 Encounter Details Date Type Department Care Team (Late st Contact Info) Description 10/08/2017 7:00 AM EST - 10/08/2017 1:31 PM EST Surgery [facility] PERIOP [address] [place] [address] David Mendenhall MD [address] [facility] [address] [place]plant [place] [address] TRANSPLANT LIVER Surgery Details Date/Time Status Location OR Service Patient Class Case Cl ass Case Type Trauma Case? 10/08/2017 7:00 AM Posted OR 17 Transplant Inpatient Non Trauma Panel 1 Procedure LRB Anes Op Region Wound Class Comments TRANSPLANT LIVER N/A General Abdomen Clean Surgeon Surgeon Role Service Panel David Mendenhall MD Primary Transplant 1 Tami Richardson MD Transplant 1 Special Needs Aleta Worthington [phone] documented in this encounter Social History Tobacco [...] Sign Reading Time Taken Comments Blood Pressure 151/71 10/08/2017 1:30 PM EST Pulse 79 10/08/2017 1:30 PM EST Temperature 36.8 ??C (98.2 ??F) 10/08/2017 1:30 PM ES T Respiratory Rate 16 10/08/2017 1:30 PM EST Oxygen Saturation 100% 10/08/2017 1:30 PM EST Inhaled Oxygen Concentration 100% 10/08/2017 1 :30 PM EST Weight 116.1 kg (256 lb) 10/08/2017 12:03 AM EST Height 170.2 cm (5' 7 ) 10/08/2017 12:45 PM EST Body Mass Index 44.2 10/10/2017 2:59 PM EST documented in this encounter Discharge Summaries * Shira Feng CNP - 10/27/2017 3:57 PM EDT [facility] Inpatient Discharge Summary Patient: Leoncio Rollins Age: 42 y.o. CSN: [id number] Date of Admission: 10/07/2017 Date of Discharge: [...] Case IDs Date Procedure Surgeon Location Status [id number] 10/08/17 TRANSPLANT LIVER David Mendenhall MD OR [facility] Lines and tubes: Patient Lines/Drains/Airways Status Active [...] Infectious Disease Diabetes Education PT/OT Social Work Software Support Technician Allergies Allergies Allergen Reactions ??? Codeine ??? [...] Quantity: 150 strip Refills: 5 blood-glucose meter [facility] Commonly known as: ONETOUCH VERIO SYSTEM Use [...] 33 gauge Misc Commonly known as: ONETOUCH DELMicksGarage LANCETS Use 1 strip as directed 4 [...] Your Medications These medications were sent to [facility] [address] [place] [address] [address] [facility] [address] ?? aspirin 81 MG chewable tablet ?? [...] transplant candidate [Z76.82] 10/07/2017 ??? Liver transplanted ([facility] Dx) [Z94.4] Resolved Hospital Problems Diagnosis Date Noted Date Resolved No resolved problems to display. HEPATOLOGY - patient underwent liver transplant on day of admission (2/25/18). Whole organ placed in piggyback fashion with [...] 2-3L/day. NEURO/PAIN - patient placed on Dilaudid HPLC CHEMIST once extubated, then transitioned to prn IV [...] obtain results of prior sleep study at [facility] in [place], which per Pulmonology, revealed no JC during non-REM sleep: Apnea-Hypopnea index at 3.1. But does have significant isolated REM onset sleep apnea: AHI = 20. Lowest O2 sat 86%. Pulmonology recommend a repeat sleep study/CPAP titration after discharge, which the patient would like to have done at [facility] in [place] and to f/u w/ sleep program. Patient [...] the following bowel regimen: Miralax and Colace. [facility] - PT/OT evaluated patient and recommended home with PT/OT. - Anders d/c'd on POD#3 and patient voided spontaneously. ENDO - patient on insulin drip in OR and transitioned to SSI prior to transfer to the floor. Patient and family met w/ patient educator prior to discharge. Patient discharge on [...] Patient and family received post-transplant education from data coordinator as well as medication teaching from [...] Fax results to liver transplant clinic at [phone]. 5. Core measures followed: (if this is a core measure patient) Discharge Weight: (!) 283 lb 8 oz (128.6 kg) Disposition Home with assistance Home with supervision Home with Home Health Follow-Up Appointments [facility] Liver Transplant Office [address] [place] [address] On 10/31/2017 @ 8:45 AM, in the transplant clinic, 3rd floor of the outpatient building. Signed: SHIRA FENG CNP 10/26/2017, 1:10 PM Cosigned by Gennaro Reyes MD at 10/31/2017 3:46 PM EDT * RADHA Nielsen, GOLF COURSE MECHANIC - 10/27/2017 8:50 AM EDT [facility] Post-Liver Transplant [employer] Transport Operator Discharge Summary Patient name: Leoncio Rollins Patient : 1975 Age: 42 y.o. Gender: male Patient emergency contact: Extended Emergency Contact Information Primary Emergency Contact: Kym Rollins Address: [address] [address] [facility] Mobile Relation: Spouse Secondary Emergency Contact: Kimberly Rollins [facility] Relation: Mother Attending provider: David Mendenhall MD Primary care physician: Edgar Fournier MD The MD has indicated that the patient is ready for discharge. Leoncio Rollins was referred and accepted for home health care services through [facility] [phone]. Post-Liver Transplant patient will receive senior care for lab draws Mondays and before 8:30am. Lab results will be provided to [facility] same day. Patient will also received home PT and OT. Patient will receive oxygen supplies through [facility]. Patient will be provided rolling [...] at Discharge: Kym Rollins Family Contact Number: [phone] Plan reviewed with MD and other members of the health care team: Yes Care Plan Completed: Yes No further SW needs. This plan has been reviewed with the multi-disciplinary team. KIM Davey [phone] documented in this encounter Discharge Instructions * [...] information on healthy eating, visit our Transplant Software Support Technician's blog: [email or web address] Drain/Dressing/Wound Care: Raheel will be removed in clinic approximately 3-4 [...] kept under 2 gm/day. Please discuss withyour patient resource coordinator if you have any question about appropriate dose to take. Other Instructions: Call post-liver transplant clinic with questions [phone] or call [facility] at [phone] and ask for the liver data coordinator visualization developer if you experience any of the following: [...] make any necessary medication adjustments. Lab Location: [facility] will draw your labs every Monday/10/31/17 @ 8:45 AM, in the transplant clinic in the outpatient building on the 3rd floor. HOME HEALTH CARE INSTRUCTIONS You are set up to receive home health care from [facility] ([phone]) for Senior Care, PT/OT and Lab Draws every Monday and by 8:30 AM also [facility] ([phone]) for Home Oxygen and a rolling walker [...] by mouth daily with breakfast. 30 tablet 8 oxyCODONE (ROXICODONE) 5 MG immediate release [...] 18 lancets (ONETOUCH DELICA LANCETS) 33 gauge [facility] Use 1 strip as directed 4 times [...] Rollins ?? Discharge prescriptions were dispensed from [facility] and date of Rx filling was [...] Refills: 5 blood-glucose meter (ONETOUCH VERIO SYSTEM) [facility] Use as instructed. Qty: 1 each, Refills: [...] to 56 days. Associated Diagnoses: Liver transplanted ([facility] Dx) !! pen needle, diabetic 32 [...] tickets saved for 10/26/17 calorie count Margoth Taylor DT, LD Pager # [phone] * Kesha Servin RN - 10/27/2017 7:54 [...] 0659 10/27/17 0700 - 10/28/17 0659 Shift 1943-3513 1012-3290 5324-1109 24 Hour Total 6844-2545 2079-1216 5181-1423 24 Hour Total I N T A [...] recs: home with 24hr supervision - PPx: SQH, SCDs - Dispo: Floor, possible d/c today [...] Leoncio Rollins TOY CASTELLON RN * Sussy Moreira Karthikeyan, PT - 10/26/2017 4:51 PM EDT Inpatient Physical Therapy Treatment Note Name: Leoncio Rollins :1975 Attending Physician: David Mendenhall MD Admitting Diagnosis: S/P liver transplant ([facility] Dx) [Z94.4] Date: 10/26/2017 Room: [address] [place] [address] Hospital Course PT/OT: Pt is 42 y.o. [...] along with his 3 sons and 2 [id number]. Pain: Patient reports pain in right lower [...] discharge. Signed: Sussy Napier PT, DPT, PT Community Planning Technician [facility] Pager Number: [phone] Department Number: [phone] Mon/Mon//Mon 07:30-18:00 Patient class: Inpatient Start Time: 1400 [...] supplement consumed from 10/25/17. Judi Johnson, DT [phone] * Madelyn Kwok, RD - 10/26/2017 9:45 AM EDT TXP-follow up [facility] Medical Nutrition Therapy Follow-Up Diet Order/Nutrition [...] encourage PO intake Madelyn Kwok RD, LD Pager#[phone] * Fox Han MD - 10/26/2017 6:37 [...] 0659 10/26/17 0700 - 10/27/17 0659 Shift 2831-1732 9105-7615 9543-0831 24 Hour Total 6763-4824 3401-1089 3906-7704 24 Hour Total I N T A K E P.O. 240 240 480 P.O. 240 240 480 Shift Total (mL/kg) 240 (1.8) 240 (1.9) 480 (3.7) O U T P U T Urine (mL/kg/hr) 2450 (2.4) 380 (0.4) 800 3630 Urine 2450 078 760 5102 Stool Stool Occurrence 1 x 1 x [...] Labs 10/25/17 1342 10/25/17 1358 10/25/17 1423 10/25/17200310/25/17 2353 10/26/17 0534 POCGMD 55* 59* 122* [...] 0659 10/25/17 0700 - 10/26/17 0659 Shift 5486-3597 2761-2480 24 Hour Total 7076-9826 1791-1819 9575-7060 24 Hour Total I N T A [...] Mendenhall MD Admitting Diagnosis: S/P liver transplant ([facility] Dx) [Z94.4] Date: 10/25/2017 Room: [address] [place] [address] Hospital Course PT/OT: Pt is 42 y.o. [...] needed upon discharge. Signed: Annie Aden PT [facility] [phone] Office [phone] pager Hours 6:00-3:30 M-W Patient class: Inpatient [...] TRANSPLANT LIVER; Surgeon: David Mendenhall MD; Location: [facility]; Service: Transplant; Laterality: N/A; ??? TIPS PROCEDURE 10/2016 ??? TIPS Revision 04/2017 * Abbie Paz, OTR - 10/25/2017 10:18 AM EDT Occupational Therapy Progress Note Name: Leoncio Rollins :1975 Attending Physician: David Mendenhall MD Admitting Diagnosis: S/P liver transplant ([facility] D[facility]) [Z94.4] Date: 10/25/2017 Room: [address] [place] [address] Hospital Course PT/OT: Pt is 42 y.o. [...] discharge. Abbie Paz OTR/L Occupational Therapy (p) [phone] Patient Class: Inpatient Time Start Time: 946 [...] TRANSPLANT LIVER; Surgeon: David Mendenhall MD; Location: [facility]; Service: Transplant; Laterality: N/A; ??? TIPS [...] control Margoth Taylor DT, LD Pager # [phone] * Toy Castellon RN - 10/24/2017 9:33 PM EDT CMU reconciliation completed for patientLeoncio TOY CASTELLON RN * Mandi Lenz, RICARDO [...] records available from 10/23/17. Judi Johnson, DT [phone] * Tam Neil MD - 10/24/2017 6:31 [...] 0659 10/24/17 0700 - 10/25/17 0659 Shift 4089-0280 9553-7061 2455-4843 24 Hour Total 9259-2673 7360-5217 3023-5025 24 Hour Total I N T A K E P.O. 600 365 925 0624 P.O. 600 180 723 8305 Shift Total (mL/kg) 600 (4.6) 480 (3.7) 120 (0.9) 1200 (9.2) O U T P U T Urine (mL/kg/hr) 750 (0.7) 400 (0.4) 475 1625 Urine 750 225 087 4952 Stool Stool Occurrence 0 x 0 x [...] medications and post-surgical issues. * Josefa Lake, CAN PILER - 10/23/2017 6:46 PM EDT Pt educated on sputum collection. Sputum cup left at bedside. Josefa Lake CAN PILER * Mandi Cazares PharmD - 10/23/2017 3:57 [...] PharmD Transplant Pharmacy Specialty Resident Desk Pager: [phone] * KODAK Mcfarland - 10/23/2017 2:30 PM EDT Occupational Therapy Progress Note Name: Leoncio Rollins :1975 Attending Physician: David Mendehnall MD Admitting Diagnosis: S/P liver transplant ([facility] Dx) [Z94.4] Date: 10/23/2017 Room: [address] [place] [address] Hospital Course PT/OT: Pt is 42 y.o. [...] discharge. Abbie Paz OTR/L Occupational Therapy (p) [phone] Patient Class: Inpatient Time Start Time: 1326 [...] TRANSPLANT LIVER; Surgeon: David Mendenhall MD; Location: [facility]; Service: Transplant; Laterality: N/A; ??? TIPS PROCEDURE 10/2016 ??? TIPS Revision 04/2017 * Annie Aden, PT - 10/23/2017 2:01 PM EDT Inpatient Physical Therapy Treatment Note Name: Leoncio Rollins :1975 Attending Physician: David Mendenhall MD Admitting Diagnosis: S/P liver transplant ([facility] Dx) [Z94.4] Date: 10/23/2017 Room: [address] [place] [address] Hospital Course PT/OT: Pt is 42 y.o. [...] needed upon discharge. Signed: Annie Aden PT [facility] [phone] Office [phone] pager Hours 6:00-3:30 M-W Patient class: Inpatient [...] TRANSPLANT LIVER; Surgeon: David Mendenhall MD; Location: [facility]; Service: Transplant; Laterality: N/A; ??? TIPS PROCEDURE 10/2016 ??? TIPS Revision 04/2017 * Josie Hastings, RD - 10/23/2017 7:32 AM EDT [facility] Medical Nutrition Therapy Follow-Up Diet Order/Nutrition [...] glucose control, scrambled eggs, sausage and an austrian muffin with jelly. Patient ate ~50% of [...] 0900 ??? valGANciclovir 450 mg Oral Daily 09 PRN Meds:All IV Medications in Normal Saline [...] monitor and encourage PO intake. Josie Hastings, Performance Analyst Cosigned by Aj Govea RD at 10/23/2017 10:16 AM EDT Associated attestation - Aj Govea RD - 10/23/2017 10:16 AM EDT I agree with the nutrition assessment and recommendations made by Josie Hastings, Performance Analyst. Aj Govea MS, RD, LD Clinical Dietitian Pager #[phone] * Margoth Taylor - 10/23/2017 6:56 AM EDT 10/22/17 0656 24 HR Nutrition Analysis Totals 24 HR Total Calories (kcals) 0 kcals 24 Hr Total Protein (g) 0 g 2 meal tickets saved for 10/21/17, although nothing recorded on neither ticket to calculate tabatha/pro for those meals NELLY Hoover Pager # [phone] * Margoth Taylor - 10/23/2017 6:55 AM EDT 10/23/17 0600 24 HR Nutrition Analysis Totals 24 HR Total Calories (kcals) 0 kcals 24 Hr Total Protein (g) 0 g no meal tickets saved to record 10/22/17 calorie count NELLY Hoover Pager # [phone] * Tam Neil MD - 10/23/2017 6:21 AM EDT Transplant Surgery Progress Note Patient: Leoncio Rollins Admit Date: 10/07/2017 OR Date: 10/08/2017 Subjective: No acute events overnight. HDS. Tremors continuing to improve. 2L NC. Objective: Vitals: Temp: [98.2 ??F (36.8 ??C)-98.6 ??F (37 ??C)] 98.2 ??F (36.8 ??C) Heart Rate: [73-83] 80 Resp: [16-18] 16 BP: (122-153)/(45-92) 153/87 Date 10/22/17 0700 - 10/23/17 0659 10/23/17 0700 - 10/24/17 0659 Shift 5900-8886 9414-5561 6269-9722 24 Hour Total 7620-6411 0763-0008 9829-6616 24 Hour Total I N T A [...] 2108 10/22/17 0820 10/22/17 1356 10/22/17 1836 10/22/171 POCGMD 316* 331* 220* 189* 302* 276* [...] 0900 ??? valGANciclovir 450 mg Oral Daily 09 Continuous Infusions: PRN [...] 0659 10/22/17 0700 - 10/23/17 0659 Shift 7036-0158 3540-2215 8869-5569 24 Hour Total 2981-8677 3897-6906 9195-8314 24 Hour Total I N T A [...] QAM ??? melatonin 3 mg Oral Nightly (2100) [...] 235g Fluid ml/day: 1ml/kcal or as per 3 meals recorded for 10/20/17 Includes ate one boost pudding and drank 3 boost glucose control Margoth Taylor DT, LD Pager # [phone] * Priti Macedo MD - 10/21/2017 3:55 [...] 0659 10/21/17 0700 - 10/22/17 0659 Shift 2596-2706 1527-6403 3456-8395 24 Hour Total 8691-3910 4319-6880 6824-2063 24 Hour Total I N T A [...] PPx: SQH, SCDs - Dispo: Floor PRITI MACEDO MD Transplant Surgery TXP1 Pager Cosigned by [...] records available from 10/19/17. Judi Johnson, DT [phone] * Sheri Malhotra PharmD - 10/20/2017 11:21 [...] Status of discharge prescriptions: ?? Patient has [place] Medicaid - prescriptions have been sent to [facility] in [place], [place] ([phone]) ?? Long-term pharmacy plan. ([facility] vs. Other) ?? See above Sheri Malhotra PharmD PGY1 Clinic [facility] Pager: [phone] Clinical On-Call: [phone] Cosigned by Blake Dang PharmD at 10/24/2017 3:47 PM EDT Associated attestation - Blake Dang PharmD - 10/24/2017 3:47 PM EDT I have overseen the counseling provided by the clinical pharmacy specialist or resident below and attest that the student/resident was adequately prepared to provide education as outlined in the attached note. Christiano Dang, Pharm.D. Clinical Middle School Combination Teacher, Solid Organ Transplant Pager #[phone] (Clinical Pharmacist visualization developer pager [phone]) * Gloria Ayers RN - 10/20/2017 7:47 [...] BP: (93-152)/(45-117) 149/73 Date 10/19/17 0700 - 10/20/17 0659 10/20/17 0700 - 10/21/17 0659 Shift 1212-9595 4084-7529 2403-5811 24 Hour Total 8536-4811 6224-7020 6316-5977 24 Hour Total I N T A K E P.O. 0 0 0 P.O. 0 0 0 I.V. (mL/kg) 20 (0.2) 0 (0) 20 (0.2) I.V. 20 0 20 Shift Total (mL/kg) 20 (0.2) 0 (0) 20 (0.2) O U T P U T Urine (mL/kg/hr) 615 (0.6) 275 (0.3) 225 1115 Urine 615 814 019 4194 Urine Occurrence 0 x 1 x 1 [...] - PT/OT recs: inpatient rehab - PPx: SQ, SCDs - Dispo: Floor TAM NEIL MD [...] - 10/19/2017 9:20 AM EST TXP-follow up [facility] Medical Nutrition Therapy Follow-Up Diet Order/Nutrition Support: Consistent carbohydrate 6751-5949 kcal, Boost Glucose Control TID, Boost Pudding [...] monitor and encourage PO intake Judi Zapata, Performance Analyst Cosigned by Aj Govea RD at 10/19/2017 1:53 PM EST Associated attestation - Aj Govea RD - 10/19/2017 1:53 PM EST I agree with the nutrition assessment and recommendations made by Judi Zapata, Performance Analyst. Aj Govea MS, RD, LD Clinical Dietitian Pager #[phone] * Abbie Paz, OTR - 10/19/2017 7:51 AM EST Occupational Therapy/Physical Therapy Reason Patient Not Seen Name: Leoncio Rollins : 1975 Attending Physician: David Mendenhall MD Admission Diagnosis: S/P liver transplant ([facility] Dx) [Z94.4] Date: 10/19/2017 Precautions: Precautions: No limitations Reviewed Pertinent hospital course: Yes Unable to see patient due to: pt's hemoglobin 6.4, will HOLD and f/u as appropriate. Abbie Paz OTR/L Occupational Therapy (p) [phone] * Tam Neil MD - 10/19/2017 6:08 [...] 0659 10/19/17 07 - 10/20/17 0659 Shift 6014-8039 5743-9905 1041-3167 24 Hour Total 5143-0433 8061-9092 0452-3157 24 Hour Total I N T A [...] Mendenhall MD Admitting Diagnosis: S/P liver transplant ([facility] Dx) [Z94.4] Date: 10/18/2017 Room: [address] [place] [address] Hospital Course PT/OT: Pt is 42 y.o. [...] TRANSPLANT LIVER; Surgeon: David Mendenhall MD; Location: [facility]; Service: Transplant; Laterality: N/A; ??? TIPS PROCEDURE 10/2016 ??? TIPS Revision 04/2017 * Nadya Mathew - 10/18/2017 8:11 AM EST 10/18/17 0800 24 HR Nutrition Analysis Totals 24 HR Total Calories (kcals) 0 kcals 24 Hr Total Protein (g) 0 g No records saved to calculate PO intake for 10/17/17 calorie count Nadya Mathew,DTR [phone] * Tam Neil MD - 10/18/2017 6:18 AM EST [...] 0659 10/18/17 0700 - 10/19/17 0659 Shift 1239-2161 1639-5813 1441-8455 24 Hour Total 4505-2025 7208-9624 5553-0277 24 Hour Total I N T A [...] liver transplant (HCC) [Z94.4] Date: [facility]17/2017 [facility] PT/OT: Pt is 42 y.o. [...] stand with contact guard assistance (goal met/upgraded 3/) Patient will complete chair transfer :with supervision [...] discharge. Abbie Paz OTR/L Occupational Therapy (p) [phone] Patient Class: Inpatient Time Start Time: 1320 [...] PROCEDURE 10/2016 ??? TIPS Revision 04/2017 * Judi Johnson - 10/17/2017 1:05 PM EST 10/17/17 1300 24 HR Nutrition Analysis Totals 24 HR Total Calories (kcals) 0 kcals 24 Hr Total Protein (g) 0 g No food records available from 10/16/17 calorie counts. Judi Johnson, DT [phone] * Mandi Cazares PharmD - 10/17/2017 8:14 [...] PharmD Transplant Pharmacy Specialty Resident Desk Pager: [phone] * Tam Neil MD - 10/17/2017 6:20 [...] 0659 10/17/17 0700 - 10/18/17 0659 Shift 7214-2531 3879-5141 2621-2877 24 Hour Total 3430-6166 9902-7868 2310-0341 24 Hour Total I N T A K E P.O. 240 360 600 P.O. 240 360 600 Shift Total (mL/kg) 240 (1.8) 360 (2.7) 600 (4.4) O U T P U T Urine (mL/kg/hr) 1070 (1) 1075 (1) 675 2820 Urine 1070 2757 969 6530 Shift Total (mL/kg) 1070 (7.9) 1075 (7.9) [...] 0659 10/16/17 0700 - 10/17/17 0659 Shift 4681-0385 7954-7103 5564-6200 24 Hour Total 2075-4048 0979-1373 4190-8255 24 Hour Total I N T A K E P.O. 360 600 960 P.O. 360 600 960 Shift Total (mL/kg) 360 (2.7) 600 (4.4) 960 (7.1) O U T P U T Urine (mL/kg/hr) 900 (0.8) 825 (0.8) 900 (0.8) 2625 (0.8) 1070 1070 Urine 900 401 102 1199 1070 1070 Urine Occurrence 3 x 1 [...] 2.2 PHOS 3.0 2.9 3.1 Recent Labs 10/15/17203610/15/17 2038 10/16/17 0014 10/16/17 0618 10/16/17 0758 10/16/17 1205 POCGMD 455* 443* [...] - PT/OT recs: inpatient rehab - PPx: [facility], SCDs - Dispo: Floor Fox Han MD [...] liver transplant (HCC) [Z94.4] Date: 10/16/2017 Room: [address] [place] [address] Hospital Course PT/OT: Pt is 42 y.o. [...] needed upon discharge. Signed: Annie Aden PT [facility] [phone] Office [phone] pager Hours 6:00-3:30 M-W Patient class: Inpatient Start Time: 09 Stop Time: 1027 Time Calculation (min): 28 [...] TRANSPLANT LIVER; Surgeon: David Mendenhall MD; Location: [facility]; Service: Transplant; Laterality: N/A; ??? TIPS PROCEDURE 10/2016 ??? TIPS Revision 04/2017 * Abbiemayank Paz, OTR - 10/16/2017 11:37 AM EST Occupational Therapy Progress Note Name: Leoncio Rollins :1975 Attending Physician: David Mendenhall MD Admitting Diagnosis: S/P liver transplant (HCC) [Z94.4] Date: 10/16/2017 Room: [address] [place] [address] Hospital Course PT/OT: Pt is 42 y.o. [...] discharge. Abbie Paz OTR/L Occupational Therapy (p) [phone] Patient Class: Inpatient Time Start Time: 1000 [...] - 10/16/2017 10:12 AM EST TXP-follow up [facility] Medical Nutrition Therapy Follow-Up Diet Order/Nutrition Support: Consistent carbohydrate 6418-1116, Boost pudding TID, Boost glucose TID Pertinent [...] encourage PO intake Madelyn Kwok RD, LD Pager#[phone] * Margoth Taylor - 10/16/2017 6:32 AM EST 10/15/17 0632 24 HR Nutrition Analysis Totals 24 HR Total Calories (kcals) 0 kcals 24 Hr Total Protein (g) 0 g from sicu-18 No meal tickets saved for 10/14/17 calorie count NELLY Hoover Pager # [phone] * Margoth Taylor - 10/16/2017 6:31 AM EST 10/16/17 0600 24 HR Nutrition Analysis Totals 24 HR Total Calories (kcals) 0 kcals 24 Hr Total Protein (g) 0 g transferred from sicu-18 No meal tickets saved for 10/15/17 calorie count Hung calorie count folder NELLY Hoover Pager # [phone] * Chrissie Diaz RN - 10/15/2017 10:37 PM EST CMU remote monitoring orders have been reconciled. CHRISSIE DIAZ RN * Darya Hernandez RN - 10/15/2017 12:46 PM EST MD order to admit patient to [facility]. Patient arrived A/O x4. Pt. Was place [...] 0659 10/15/17 0700 - 10/16/17 0659 Shift 9174-6269 0727-0339 8584-4655 24 Hour Total 1553-7115 1068-6934 4305-6370 24 Hour Total I N T A K E P.O. 2191 727 516 2210 P.O. 1480 707 808 2067 Boost Glucose Control (mL) 474 237 711 Boost (mL) - [facility] only 237 237 Shift Total (mL/kg) 2191 (16.3) 557 (4.2) 240 (1.8) 2988 (22.3) O U T P U T Urine (mL/kg/hr) 1100 (1) 600 (0.6) 900 2600 Urine 1100 981 616 8487 Urine Occurrence 1 x 3 x 4 [...] - PT/OT recs: inpatient rehab - PPx: SQ, SCDs - Dispo: SICU EARLENE SORIA MD Transplant Surgery TXP1 Pager Cosigned by David Mendenhall MD at 10/15/2017 7:29 AM EST Associated attestation - Dvaid Mendenhall MD - 10/15/2017 7:29 AM EST [...] pudding consumed from 10/13/17. Judi Johnson, DT [phone] * Jaquelin Saucedo RN - 10/14/2017 5:32 PM EST Skin tight due to edema * Jaquelin Saucedo RN - 10/14/2017 2:49 PM EST Dressing applied to keep gown clean * Jaqueiln Saucedo RN - 10/14/2017 2:17 PM EST [...] Date 10/13/17 0700 - 10/14/17 0659 10/14/17 0700 - 10/15/17 0659 Shift 7463-5001 3722-8953 1255-6793 24 Hour Total 2654-5200 0081-1081 6832-2574 24 Hour Total I N T A K E P.O. 355 0132 320 3597 P.O. 355 7825 311 3528 Boost (mL) - [facility] only 240 240 NG/GT 393 393 [...] meals recorded from 10/12/17. Judi Johnson, DT [phone] * Fox Han MD - 10/13/2017 10:12 [...] 0659 10/13/17 0700 - 10/14/17 0659 Shift 2052-8052 1411-6975 7594-2333 24 Hour Total 3536-3049 9727-7447 7757-7708 24 Hour Total I N T A K E P.O. 480 480 120 120 P.O. 480 480 120 120 I.V. (mL/kg) 188 (1.4) 93 (0.7) 281 (2.1) Volume (mL) Esmolol 188 93 281 NG/GT 562 945 630 9737 Intake (mL) (Feeding Tube Nasogastric Nares) 562 333 566 8183 Shift Total (mL/kg) 750 (5.8) 1084 (8.4) 535 (4.1) 2369 (18) 120 (0.9) 120 (0.9) O U T P U T Urine (mL/kg/hr) 120 (0.1) 1800 (1.7) 250 (0.2) 2170 (0.7) Urine 120 9136 838 0568 Drains 315 100 415 Output (mL) (Drain [...] Skin: warm and dry Labs: Recent Labs 10/11/17 1408 10/12/17 0110 10/13/17 0526 WBC 10.5 [...] - 10/13/2017 10:04 AM EST TXP-follow up [facility] Medical Nutrition Therapy Follow-Up Diet Order/Nutrition [...] are accurately recorded. Madelyn Kwok RD, LD Pager#[phone] * Je Dominguez MD - 10/13/2017 4:36 [...] being treated with xifaxan and lactulose. After [place]-viviana catheter was placed, Mr. Rollins was found [...] D/C TPN rate:N/A A/P: Diabetic diet - VAT PACKER eval - regular diet with thin GASTROINTESTINAL: Exam: no masses or tenderness, soft, obese, no rebound and no guarding Hepatic Profile: Lab 10/12/17 0110 ALK PHOS 48 ALT 181* AST 22 BILIRUBIN TOTAL 0.8 ALBUMIN 2.1* 2.1* BILIRUBIN DIRECT 0.31 TOTAL PROTEIN 4.0* A/P: ESLD 2/ SAL - Right Hepatic artery reconstruction - [...] Date 10/12/17 07 - 10/13/17 0659 10/13/17 07 - 10/14/17 0659 Shift 5853-3159 4367-8777 9986-4021 24 Hour Total 6006-9293 9579-5547 1120-8234 24 Hour Total I N T A K E P.O. 480 480 P.O. 480 480 I.V. (mL/kg) 188 (1.4) 93 (0.7) 281 (2.2) Volume (mL) Esmolol 188 93 281 NG/GT 562 607 433 6345 Intake (mL) (Feeding Tube Nasogastric Nares) 562 414 917 7600 Shift Total (mL/kg) 750 (5.8) 1084 (8.4) 535 (4.1) 2369 (18.3) O U T P U T Urine (mL/kg/hr) 120 (0.1) 1800 (1.7) 250 2170 Urine 120 6023 035 1029 Drains 315 100 415 Output (mL) (Drain [...] - Will add Melatonin PRN QHS Order HPLC CHEMIST Patient Lines/Drains/Airways Status Active Epidural Line / [...] The patient was initially seen by the RETAIL INTERIOR DESIGNER/Resident team. My findings are as above. Judi Carter MD Surgical Field Reviewer Division of Trauma and Critical Care [facility] Academic Office [phone] Pager: [phone] 10/13/2017 9:13 AM * Tasha Norton, OT - 10/12/2017 3:50 PM EST Occupational Therapy Progress Note Name: Leoncio Rollins :1975 Attending Physician: Tami Richardson MD Admitting Diagnosis: S/P liver transplant (HCC) [Z94.4] Date: 10/12/2017 Room: [place] [address] Hospital Course PT/OT: Pt is 42 y.o. [...] ADL tasks as needed upon discharge. Tasha HERNANDEZ, OTR/L [facility] Pager: [phone] Office: [phone] Hours: M-F 7:30-4:00 Patient Class: Inpatient Time [...] TRANSPLANT LIVER; Surgeon: David Mendenhall MD; Location: [facility]; Service: Transplant; Laterality: N/A; ??? TIPS PROCEDURE 10/2016 ??? TIPS Revision 04/2017 * Genevieve Devin, PT - 10/12/2017 12:52 PM EST Inpatient Physical Therapy Treatment Note Name: Leoncio Rollins :1975 Attending Physician: Tami Richardson MD Admitting Diagnosis: S/P liver transplant (HCC) [Z94.4] Date: 10/12/2017 Room: [place] [address] Hospital Course PT/OT: Pt is 42 y.o. [...] JAY Monterroso Student Physical Therapist Pager: Office: -[phone] ?? Patient class: Inpatient Start Time: 1120 [...] Brooks PT, DPT Physical Therapist Pager: Office: m-U [phone] * DYLAN Grover - 10/12/2017 9:54 AM EST Speech Language Pathology Progress Note Name: Leoncio Rollins : 1975 Attending Physician: Tami Richardson MD Admission Diagnosis: S/P liver transplant (HCC) [Z94.4] Date: 10/12/2017 Reviewed Pertinent hospital course: Yes Hospital Course VAT PACKER: 42 y.o. male with ESLD w/ cirrhosis 2/ SAL, HTN, IDDM, GERD, and obesity s/pOLT on 10/08. Intubated 10/08-10/09. +Encephalopathy. CXR 10/08: Low lung volumes with minimal bibasilar atelectasis. No previous VAT PACKER. Assessment: Patient presents with grossly normal oropharyngeal swallow function with no signs or symptoms of penetration or aspiration for any consistency. Plan: 1. Discharge from VAT PACKER--no acute VAT PACKER needs at this time. 2. VAT PACKER at discharge is not recommended 3. Diet [...] 10/26/17 Education: Patient educated on role of VAT PACKER, current POC, and discharge recommendations for VAT PACKER therapy. Patient educated on swallowing anatomy & physiology, dysphagia, risks of aspiration, current diet recommendations, and safe swallowing behaviors. Patient and family demo understanding. Shiloh Horton MA CCC-VAT PACKER Speech-Language Pathologist [facility] Certified Clinician Pager: [phone] Office: [phone] Hours: M-F [phone] Weekend Pager: [phone] (10 AM - 2 PM) Time Start [...] for 10/11/17 Margoth CRAFT, LD Pager # [phone] * Je Dominguez MD - 10/12/2017 6:33 [...] being treated with xifaxan and lactulose. After [place]-viviana catheter was placed, Mr. Rollins was found [...] Wean esmolol as tolerated OOB BID PT/OT VAT PACKER eval Daily CXR PO metoprolol at 50 [...] insulin (HumuLIN R) infusion 5 Units/hr (10/12/17 1011) ??? sodium chloride 0.9 % 75 mL/hr (10/11/17 1655) PRN Meds:.All IV Medications in Normal Saline [...] Diabetic diet Cleared for small swallows Repeat VAT PACKER eval today - 50%meals GASTROINTESTINAL: Exam: no [...] 7.5* MAGNESIUM 2.1 PHOSPHORUS 3.1 Date 10/11/17 0700 - 10/12/17 0659 10/12/17 0700 - 10/13/17 0659 Shift 8048-8032 2585-6539 8939-7367 24 Hour Total 0128-4918 3269-9090 9992-4934 24 Hour Total I N T A K E I.V. (mL/kg) 944 (7.5) 849 (6.7) 1793 (14.2) Volume (mL) Insulin 65 76 141 Volume (mL) Esmolol 234 211 445 Volume (mL) (sodium chloride 0.9 % infusion) 154 447 1034 NG/GT 341 393 734 Intake (mL) (Feeding [...] - Will add Melatonin PRN QHS Order HPLC CHEMIST Patient Lines/Drains/Airways Status Active Epidural Line / PICC Line / PIV Line / ART Line / Line / CVC Line Name: Placement date: Placement time: Site: Days: Peripheral IV 10/08/17 Left 10/08/17 4 Arterial Line Right Radial Radial Introducer 10/08/17 10/08/17 0953 3 Anders: Yes If yes: Strict I/O --> will d/c EVD: No A/P: D/C [place], obtain PIVs and d/c MAC; D/C anders [...] insulin (HumuLIN R) infusion 5 Units/hr (10/12/17 0381) ??? sodium chloride 0.9 % 75 mL/hr [...] provided on 10/12/2017. Judi Carter MD Surgical Field Reviewer Division of Trauma and Critical Care [facility] Academic Office [phone] Pager: [phone] 10/10/2017 6:24 AM * Tam Neil MD [...] 0659 10/11/17 0700 - 10/12/17 0659 Shift 4829-3039 24 Hour Total 0355-5631 5375-9638 6921-5996 24 Hour Total I N T A [...] Volume (mL) (sodium chloride 0.9 % infusion) 906 737 7431 NG/GT 161 243 341 393 734 Intake [...] OR oxyCODONE, traMADol OR traMADol Assessment/Plan: Leoncio Rollnis is a 42 y.o. male with PMHx [...] from the original note were not included. [facility] Neurology Department CONSULT FOLLOW-UP NOTE 10/11/2017 1:44 PM Patient:Leoncio Rollins LOS: 4 days Reason for consult: [facility] residential care officer: KELLY LEMONS MD Requesting MD/Contact #: [...] THANK YOU FOR THIS CONSULT. PLEASE PAGE #[phone] WITH ANY QUESTIONS. Interval hx SHARON overnight. [...] medications were sent to [facility] [address] [place] [address] Hours: Monday - Monday: 8:45AM - 5:00PM [...] Final Result IMPRESSION: Interval removal of the [place]-Viviana catheter, ET tube, and the NG tube. [...] agree with this report. Report Verified by: RAMAY NICKERSON M.D. at 10/10/2017 4:01 PM EST [...] at 10/09/2017 12:11 PM EST US Duplex Dal-Aht-Csxqfbo Comp Final Result IMPRESSION: Abdomen: Normal sonographic [...] liver transplant (HCC) [Z94.4] Date: 10/11/2017 Room: [place] [address] Hospital Course PT/OT: Pt is 42 y.o. [...] as needed upon discharge. Tasha HERNANDEZ OTR/L [facility] Pager: [phone] Office: [phone] Hours: M-F 7:30-4:00 Patient Class: Inpatient Time Start Time: 846 Stop Time: 919 Time Calculation (min): 33 min Charges $OT [...] TRANSPLANT LIVER; Surgeon: David Mendenhall MD; Location: [facility]; Service: Transplant; Laterality: N/A; ??? TIPS PROCEDURE 10/2016 ??? TIPS Revision 04/2017 * Genevieve Beltran, PT - 10/11/2017 8:42 AM EST Inpatient Physical Therapy Initial Assessment Name: Leoncio Rollins :1975 Attending Physician: Tami Richardson MD Admitting Diagnosis: S/P liver transplant (HCC) [Z94.4] Date: 10/11/2017 Room: [place] [address] Hospital Course PT/OT: Pt is 42 y.o. [...] JAY Monterroso Student Physical Therapist Pager: Office: -[phone] Patient Class: Inpatient Start Time: 846 Stop [...] TRANSPLANT LIVER; Surgeon: David Mendenhall MD; Location: [facility]; Service: Transplant; Laterality: N/A; ??? TIPS PROCEDURE 10/2016 ??? TIPS Revision 04/2017 Cosigned by Cecelia Brooks PT at 10/11/2017 11:21 AM EST Associated attestation - Cecelia Brooks, DEMETRIUS - 10/11/2017 11:21 AM EST I have read and agree with the documentation provided below by the student physical therapist. Cecelia Brooks PT, DPT Physical Therapist Pager: Office: M-F [phone] * Je Acevedo MD - 10/11/2017 6:49 [...] being treated with xifaxan and lactulose. After [place]-viviana catheter was placed, Mr. Rollins was found [...] Wean esmolol as tolerated OOB BID PT/OT VAT PACKER eval Daily CXR PO metoprolol up to [...] Diabetic diet Cleared for small swallows Repeat VAT PACKER eval today GASTROINTESTINAL: Exam: no masses or [...] Date 10/10/17 07 - 10/11/17 0659 10/11/17 0700 - 10/12/17 0659 Shift 0985-9825 9358-7650 9215-4849 24 Hour Total 5059-7955 5287-1076 7446-5537 24 Hour Total I N T A K E P.O. 100 100 P.O. 100 100 I.V. (mL/kg) 1017 (8.2) 782.4 (6.3) 1020.3 (8.1) 2819.7 (22.3) Volume (mL) Insulin 33 52.4 54.3 139.7 Volume (mL) Esmolol 191 236 207 634 Volume (mL) Pantoprazole 10 10 Volume (mL) (electrolyte-R (pH 7.4) (NORMOSOL-R pH 7.4) iv solution SolP) 793 674 836 3578 NG/GT 82 161 243 Intake (mL) (Feeding [...] ([REMOVED] IUC (Anders) Straight-tip 16 Fr.) 360 953 772 4346 Drains 80 130 110 320 Output (mL) [...] - Will add Melatonin PRN QHS Order HPLC CHEMIST Patient Lines/Drains/Airways Status Active Epidural Line / [...] provided on 10/11/2017. Judi Carter MD Surgical Field Reviewer Division of Trauma and Critical Care [facility] Academic Office [phone] Pager: [phone] 10/10/2017 6:24 AM * Margoth Taylor - 10/11/2017 6:48 AM EST 10/11/17 0600 24 HR Nutrition Analysis Totals 24 HR Total Calories (kcals) 0 kcals 24 Hr Total Protein (g) 0 g no meal tickets saved for 10/10/17 Margoth CRAFT, LD Pager # [phone] * Joceline Maxwell MD - 10/11/2017 5:46 AM EST [...] the housestaff and teams involved. * Adonis Brambila PharmD - 10/10/2017 3:12 PM EST Medication Reconciliation [facility] - [facility] Department of Pharmacy Services Information obtained from: Pharmacy: [facility] Phone number: [phone] Address: [place], [place] Allergies Allergen Reactions ??? Codeine ??? [...] now with AMS. S/p swallow eval with VAT PACKER today who recommended regular dietwith thin liquids. [...] monitor PO intake closely Madelyn Kwok RD, LD Pager#[phone] * DYLAN Grover - 10/10/2017 10:08 AM EST Speech Language Pathology Clinical Swallow Assessment Name: Leoncio Rollins : 1975 Attending Physician: Tami Richardson MD Admission Diagnosis: S/P liver transplant (HCC) [Z94.4] Date: 10/10/2017 Reviewed Pertinent hospital course: Yes Hospital Course VAT PACKER: 42 y.o. male with ESLD w/ cirrhosis 2/2 SAL, HTN, IDDM, GERD, and obesity s/pOLT on 10/08. Intubated 10/08-10/09. +Encephalopathy. CXR 10/08: Low lung volumes with minimal bibasilar atelectasis. No previous VAT PACKER. Assessment: Patient presents with oropharyngeal dysphagia secondary [...] an increased risk of aspiration. Plan: 1. VAT PACKER therapy 1-3x/week while inpatient 2. VAT PACKER at discharge is not anticipated 3. Diet [...] wash) Education: Patient educated on role of VAT PACKER, current POC, and discharge recommendations for VAT PACKER therapy. Patient educated on swallowing anatomy & physiology, dysphagia, risks of aspiration, current diet recommendations, and safe swallowing behaviors. Patient was unable to demonstrate understanding. Pt's family demos understanding. Shiloh Horton MA CCC-VAT PACKER Speech-Language Pathologist [facility] Certified Clinician Pager: [phone] Office: [phone] Hours: M-F [phone] Weekend Pager: [phone] (10 AM - 2 PM) Time Start [...] gtt Bo Frias MD Surgery Resident Pager: [phone] 10/10/2017 5:33 AM Cosigned by David Mendenhall [...] being treated with xifaxan and lactulose. After [place]-viviana catheter was placed, Mr. Rollins was found [...] on esmolol gtt, target SBP 160 -pulled [place] and one MAC Past Medical History: Diagnosis [...] TRANSPLANT LIVER; Surgeon: David Mendenhall MD; Location: [facility]; Service: Transplant; Laterality: N/A; ??? TIPS [...] Infusions: ??? electrolyte 100 mL/hr (10/09/170) ??? insulin (HumuLIN R) infusion 7 Units/hr (10/09/17 194) ??? morphine (PF) HPLC CHEMIST ??? sodium chloride 20 mL/hr (10/09/17923) ??? [...] Support: Vent Setting: No data found. Lab 02/26/18 1533 PH ARTERIAL 7.41 PCO2 ARTERIAL 34* [...] DIRECT 0.53* TOTAL PROTEIN 4.6* A/P: ESLD 2/ SAL - Hepatic artery reconstruction - S/P [...] 0659 10/10/17 0700 - 10/11/17 0659 Shift 9693-4861 9874-2409 6204-0992 24 Hour Total 6174-4231 2554-2700 9318-5553 24 Hour Total I N T A [...] CAM-ICU : Delirium Present A/P: Pain -morphine HPLC CHEMIST -> prn fentanyl Order HPLC CHEMIST Patient Lines/Drains/Airways Status Active Epidural Line / [...] failure, acute WITH trauma or surgery Extubated 2-26 successfully - Continue IS, pulm toileting. Weaned [...] Line Right Radial Radial Introducer 10/08/17 10/08/17 0942 less than 1 d/c swan if extubate [...] provided on 10/10/2017. Judi Carter MD Surgical Field Reviewer Division of Trauma and Critical Care [facility] Academic Office [phone] Pager: [phone] 10/10/2017 6:24 AM * Cecelia Parmar - [...] 10/08/17. Patient is in the SICU. Inpatient SW/Abe Teacher to complete psychosocial assessment once medically able. This information has been communicated to the multi-disciplinary team. SW to follow. RADHA Kline, ATMOSPHERIC SCIENCES PROFESSOR [phone] * Joceline Maxwell MD - 10/09/2017 5:34 [...] 0659 10/09/17 0700 - 10/10/17 0659 Shift 9913-0537 4669-9570 7427-1239 24 Hour Total 4658-6287 4635-5331 1331-6427 24 Hour Total I N T A [...] Volume (mL) (sodium chloride 0.9 % infusion) 395 837 4632 Blood 2473 2473 PRBC - Units 2 [...] 040) propofol Last Rate: 10 mcg/kg/min (10/09/17 040) sodium chloride Last Rate: 100 mL/hr (10/08/17 [...] being treated with xifaxan and lactulose. After [place]-viviana catheter was placed, Mr. Rollins was found [...] (10/09/17 0207) ??? propofol 5 mcg/kg/min (10/08/17 194) ??? sodium chloride 100 mL/hr (10/08/17 1417) [...] 0659 10/09/17 07 - 10/10/17 0659 Shift 5351-3675 6926-1756 9748-6634 24 Hour Total 0245-2557 4520-3582 2513-7290 24 Hour Total I N T A [...] Monitor UOP - Resuscitate as needed - Chago for strict I/O SKIN/MUSCULOSKELETAL: Exam: inspection normal, [...] Verbal Response: 1 (johan),Best Motor Response: 6 Marcio Coma Scale Score: 10 No data found. EEG: N/A EVD: N/A TCDs:N/A ICP Management: N/A A/P: Wean sedation as tolerated Hepatic Encephalopathy - Lactulose - Xifaxan PSYCHIATRIC: Exam: sedated Sifuentes Agitation Sedation Scale: -2 Overall CAM-ICU : (johan) A/P: Pain Fentanyl GTT Propofol GTT - Wean as tolerated Order HPLC CHEMIST Patient Lines/Drains/Airways Status Active Epidural Line / [...] - Possible extubation this morning - DC [place] and 1 MAC INJURY/DISEASE SPECIFIC NEEDS: DVT Prophylaxis: SCDs Will discuss heparin with primary team GI Prophylaxis: None JE ACEVEDO 10/09/2017 3:37 AM Cosigned by Judi [...] Pain Management - d/c fent/propofol - start HPLC CHEMIST. INJURY / DISEASE SPECIFIC NEEDS: No acute [...] provided on 10/09/2017. Judi Carter MD Surgical Field Reviewer Division of Trauma and Critical Care [facility] Academic Office [phone] Pager: [phone] 10/10/2017 6:24 AM * Paulina Chiang RN [...] PharmD Transplant Pharmacy Specialty Resident Desk Pager: [phone] * Ravi Byrd RN - 10/08/2017 1:46 AM EST Leoncio Rollins is a 42 y.o. male admitted to the [facility] . Patient arrived [id number] via bed . Please refer to documentation flowshee ts for a complete assessment and vital signs. [...] transplantation. He was recently second listed to [facility] system from . His cirrhosis previously deco mpensated [...] data in the 24 hours ending 10/07/17 5394 Physical Exam: Gen: Alert and oriented x3, [...] finally from surgery(5%). I also explained the halfway risks of transplantation and immunosuppression including viralinfection [...] Name: Leoncio Rollins Date: 1975 Billing #: [id number] Date of Procedure: 10/08/2017 Diagnosis: Chronic Hepatic Failure without coma Procedure: 1. Orthotopic Liver Transplant 2. Back Bench Preparation Donor Liver 3. Dopper ultrasound on liver 4. Arterial backbench reconstruction of replaced right hepatic artery Attending surgeons: Surgeon(s) and Role: * David Mendenhall MD * Tami Richardson MD Radiology Transporter Surgeon(s): Raissa Hi MD Findings: Whole organ placed in piggyback fashion with 4cm cavo-cavostomy in side to side fashion for IVC anastomosis. Large arterial anastomosis to birfurcation of left and right recipient hepatic artery. Replaced right hepatic artery in donor reconstructed to splenic artery. Mlyl-xk-tdfb anastomosis performed without stent. This liver came [...] and fatigue. He has been listed at . Earlier today a donor organ became available. This donor was ABO O and UNOS ID [id number], Match Run [id number] from [facility]. This was a32 year old donor who was brain from anoxia of drug overdose. Liver function tests were normalexcept for AST/ALT of 229/556. The donor was deemed [facility] high risk because of drug use and serologies were positive for HBcAb+/HBV ALEXANDRA+/HCVAb+/HCV ALEXANDRA-. The [facility] high risk form was discussed with the [...] Name: Leoncio Rollins Date: 1975 Billing #: [id number] Date of Procedure: 10/08/2017 Diagnosis: Chronic Hepatic Failure without coma Procedure: 1. Orthotopic Liver Transplant 2. Back Bench Preparation Donor Liver 3. Backbench preparation of donor liver with arterial reconstruction 3. Dopper ultrasound on liver 4. Liver biopsy Attending surgeons: Surgeon(s) and Role: * David Mendenhall MD - Co-Surgeon * Tami Richardson MD - Co-Surgeon Radiology Transporter Surgeon(s): Raissa Hi MD Findings: Whole organ placed in piggyback fashion with 4cm cavo-cavostomy in side to side fashion for IVC anastomosis. Nuqd-xk-owcg anastomosis performed without stent. This liver came [...] donor organ became available. This donor was [id number], Match Run [id number] from [facility]. This was a 33 year old donorwho [...] no further bleeding, we then performed a uzyo-rx-rzij anastomosis. There was no stent placed. This [...] liver appeared to be reperfused quite nicely. Raheel were applied for the skin. The fascia [...] MD Tami Xie MD Anesthesia: General Staff: Case Assistant: Rupesh Crespo RN; Maria Alejandra Rowell RN; Edwina Barnes RN Relief Case Assistant: Ondina Law RN Scrub Person: ST Francisca; Edgar Jvaier RN Fellow: Karishma Loaiza MD Estimated Blood Loss: 2800 cc Specimens: Specimens ID Description Commments Type Source Tests Collected By Collected At [facility] [place] liver Tissue Liver ?? SURGICAL PATHOLOGY EXAM [...] 1:45 PM EDTAssociated Order(s): IP CONSULT TO MANAGER STYLIST [facility] Transplant Discharge Education Note Assessment: Received [...] and ableto safely administer insulin pens . Time Signal Wirer answered all questions. Pt's family picked upNPH Humulin N insulin Kwikpens from [facility] and placed in refrigerator at home. Pt's One Touch Verio Meter also at home. Consuelo Lopez RN, BSN Diabetes Education Office [phone] Schedule: M-F 8:00am-4:30pm * Laurence Craig MD [...] sleep apnea. - Sleep study results from [facility] revealed that he has isolated REM onset sleep apnea. AHI in REM was 20, while his overall AHI was only 3.1. Plan: - He would like to go to [place] for his split night sleep study. He [...] any questions. Laurence Craig MD Pulm/CC fellow [phone] 10/25/2017 6:14 PM Cosigned by Amanda Mckeon DO at 10/26/2017 1:06 PM EDT Associated attestation - Amanda Mckeon DO - 10/26/2017 1:06 PM EDT PULMONARY ATTENDING NOTE I saw, examined and discussed Leoncio Rollins on Pulmonary Consults with Rural Service Engineer/resident 10/25/17 Labs, Xrays and pertinent studies were [...] reviewed results of Prior Sleep study at [facility] in [place]. Study revealed no JC [...] titration. [place] [facility] [place] and to f/u w/ [facility] sleep program. Recommend contacting sleep center prior to discharge to expeditearrangements for study/sleep f/u. Post Txp/Chronic immunosuppression per Liver Txp Please call Pulmonary if any further questions arise. Amanda Mckeon DO [phone] * Laurence Craig MD - 10/23/2017 4:33 [...] discussed Leoncio Rollins on Pulmonary Consults with Rural Service Engineer/resident 10/23/17. Labs, Xrays and pertinent studies were reviewed. See the fellow/resident's note(s) for details. I agree with the pertinent findings and plans as documented in the Fellow/resident's note. Amanda Mckeon DO [phone] * Arti Triplett MD - 10/20/2017 9:48 AM ESTAssociated Order(s): IP CONSULT TO INFECTIOUS DISEASES [facility] DEPARTMENT OF INFECTIOUS DISEASE CONSULT NOTE Referring Physician: David Mendenhall MD Consult Attending: Elizabeth Patient: Leoncio Rollins CSN: [id number] Reason for Consult: Fevers History of Present [...] TRANSPLANT LIVER; Surgeon: David Mendenhall MD; Location: [facility]; Service: Transplant; Laterality: N/A; ??? TIPS [...] TID ??? pantoprazole 40 mg Oral DAILY 599 ??? predniSONE 20 mg Oral Daily 899 [...] Division of Infectious Diseases 10/20/2017 10:54 AM [phone] * Priya Minor PsyD - 10/17/2017 3:00 PM EST Transplant Psychology Inpatient Visit Patient is a 42-year old male diagnosed with ESLD, status-post OLT in 10/08/2017. Patient was referred to psychology by the transplant team. This was this quality analyst/technical writer's first visit with this patient. Patient's , [...] and were provided contact information for this quality analyst/technical writer for any ongoing needs. Psychology will continue to follow as needed. Salima Minor PsyD [phone] * Annie Reyna, JANA - 10/14/2017 2:46 PM ESTAssociated Order(s): IP [...] are accurately recorded. Grace Martins RD, LD, [facility] pager # [phone] * Ginger Strickland MSW, GOLF COURSE MECHANIC - 10/12/2017 1:03 PM EST [facility] Post-Liver Transplant Abe Teacher Psychosocial Assessment Leoncio Rollins [id number] 42 y.o. male White or Marital Status: [...] apply): [employer] Next of Kin/Estate Conservator: Kym Rollins Next of Kin Relationship: Spouse Next of Kin Next of Kin/Estate Conservator: Adonis Rollins/mother of patient -[phone] Community Resources Used Prior to Admission: No Cultural/Spiritual/Language Barriers Tenriism Other Pertinent Data Analyst for Mental Health IssuesPrior to Admission: No Durable Medical Equipment Prior to Admission: [place]/number of PCP: Dr. Ibrahima Fournier Assessment/Plan Per H&P documentation: ( Leoncio Rollins is a 42 y.o. male with a PMHx significant for ESLD w/ cirrhosis secodary to SAL, HTN, IDDM, GERD, and obesity presenting to the hospital in anticipation of orthotopic liver transplantation. He was recently second listed to [facility] medical system from . His cirrhosis previously decompensated in 09/2016 with massive variceal bleed and placement of TIPS. His l iver disease is complicated by encephalopathy, which is treated with xifaxan and lactulose.) Abe Teacher/Mill And Coal Transport Operator met with post-liver transplant patient at bedside [...] family reside in their home located in [place], [place]. Kym reports she is not working [...] need for home health care services or senior care facility placement. Patient reports no previous need or recommendation for durable medical equipment. Patient is currently in SICU and is anticipated to transition to [facility] med/surg floor in the next few days. [...] reviewed with the multi-disciplinary team. KIM Davey [phone] * Madelyn Kwok, RD - 10/11/2017 1:22 PM ESTAssociated Order(s): IP CONSULT TO NUTRITION SERVICES TXP-follow up [facility] Medical Nutrition Therapy Follow-Up Diet Order/Nutrition Support: Diabetisource AC @ 75ml/hr, Consistent carbohydrate 1900-2100kcals, Boost glucose control TID Pertinent Information: Mr. Rollins is a 42 y.o. 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 Pt with improved mental status. Feeding tube placed yesterday for nutrition support due to AMS. Pt is s/p swallow eval with [facility] on 10/10 who approved regular diet with [...] consider d/cing feeding tube Madelyn Kwok RD, Pager#[phone] * Kelly Lemons MD - 10/10/2017 8:30 AM ESTAssociated Order(s): IP CONSULT TO NEUROLOGY Images from the original note were not included. [facility] Neurology Department INITIAL CONSULT NOTE 10/10/2017 8:31 AM Patient:Leoncio Rollins LOS: 3 days Reason for consult: altered mental status residential care officer: KELLY LEMONS MD Requesting MD/Contact #: [...] THANK YOU FOR THIS CONSULT. PLEASE PAGE #[phone] WITH ANY QUESTIONS. CC/HPI Leoncio Rollins is [...] TRANSPLANT LIVER; Surgeon: David Mendenhall MD; Location: [facility]; Service: Transplant; Laterality: N/A; ??? TIPS [...] scale: Blood glucose 150-199 mg/dL =1units, Blood -638 mg/dL =2 units, Blood glucose 250-299 mg/dL [...] were sent to [facility] [address], [facility] [address] Hours: Monday - Monday: 8:45AM - 5:00PM [...] Once Continuous Infusions: ??? electrolyte 100 mL/hr (10/09/17 2220) ??? esmolol (BREVIBLOC) 20 mg/mL 80 mcg/kg/min (10/10/17 0655) ??? insulin (HumuLIN R) infusion 2 Units/hr (10/10/17 0828) ??? morphine (PF) HPLC CHEMIST ??? sodium chloride 20 mL/hr (10/09/17 0924) ??? sodium chloride 20 mL/hr (10/09/17 1732) PRN Meds:.All IV Medications in Normal Saline [...] at 10/09/2017 12:11 PM EST US Duplex Fmz-Fyf-Wgdeynn Comp Final Result IMPRESSION: Abdomen: Normal sonographic [...] KELLY LEMONS MD Neurology Department Pager #: [phone] 10/10/2017 Cosigned by Merari Melchor MD at [...] IP CONSULT TO NUTRITION SERVICES TXP: Initial [facility] Medical Nutrition Therapy Reason(s) for Completion: [...] TRANSPLANT LIVER; Surgeon: David Mendenhall MD; Location: [facility]; Service: Transplant; Laterality: N/A; ??? TIPS [...] infusion 7 Units/hr (10/09/17920) ??? morphine (PF) HPLC CHEMIST ??? sodium chloride 20 mL/hr (10/09/17923) PRN [...] 11.5 (H) 10/09/2017 99.1 ??F (37.3 ??C) ([place]) Skin Integrity: abd incision Potential Nutrition Related Factor(s): Appetite Change Food Allergies/Intolerances: NKFA Cultural Requests: NA 42 y.o. Male Ht Readings from Last 1 Encounters: 10/08/17 5' 7 (1.702 m) Wt Readings from Last 1 Encounters: 10/08/17 (!) 256 lb (116.1 kg) Body mass index is 40.1 kg/m??. Usual Weight: ~275lbs prior to illness [place] Weight: 153lbs based on BMI 24kg/m^2 Weight [...] Encourage PO intake. Madelyn Kwok RD, LD Pager#[phone] * eJ Acevedo MD - 10/08/2017 2:07 PM ESTAssociated [...] being treated with xifaxan and lactulose. After [place]-viviana catheter was placed, Mr. Rollins was found [...] DIRECT 1.50* TOTAL PROTEIN 5.9* A/P: ESLD 09/15 SAL - S/P OLT 10/08/2017 - Baseline [...] 0659 10/08/17 07 - 10/09/17 0659 Shift 7525-0973 1048-3352 6818-3417 24 Hour Total 6698-8670 3407-9865 3045-9233 24 Hour Total I N T A [...] Hemodynamic monitoring swan ACTIVE DRAINS: Urinary Catheter? Anedrs - Reason: Adequate I/O DISPOSITION: Remain in [...] MD Division of Trauma and Critical Care [facility] documented in this encounter Nursing Notes [...] meds given to pt at bedside from [facility]. Pharmacist educated pt on meds. Pt denies [...] Hydralazine adm for high BP's. Will monitor. N * Samantha Campos RN - 10/15/2017 10:00 [...] 10/15/2017 12:03 PM EST Pt taken to [facility] bed 8015 via wheelchair. Pt in bathroom, aware of call-cord and pt aware of use as well. [facility] RN notified of pt arrival. * Ivett Petersen - 10/15/2017 10:20 AM EST Leoncio Rollins has orders to be transferred to the floor. Pt has been assigned a bed on [facility] room number 8015. SICU resident notified of transfer. Called report to Darya BATES. All belongings, chart and meds gathered and transferred with pt. U SP02 ordered. Pt transferred via wheelchair. All questionsanswered. Notified pt's rental salesperson of transfer. IVETT PETERSEN * Rupesh Crespo [...] PM EDT Patient is set up with [facility] [employer] ([phone]) for Senior Care , PT/OTand Lab Draws every Monday and by 8:30 AM and [employer] ([phone]) for Home Oxygen and a Rolling Walker. [email or web address] will deliver a tank of Oxygen and a Rolling Walker to patient hospital room to take home with him. Patient is to call [email or web address] When he is discharged and is leaving the Hospital so that they can meet him at his home to set up his Concentrator for his Oxygen at Home. Consuelo Tavares Abe Teacher Radiology Transporter Renal/GI/TXP/Liver/Kidney [facility] [phone] * Care Coordination - RADHA Nielsen, GOLF COURSE MECHANIC - 10/26/2017 4:36 PM EDT Abe Teacher/Mill And Coal Transport Operator met with liver transplant multidisciplinary team for [...] 10/27 with home health care services through [facility] and all necessary equipment will be delivered to patient prior to discharge tomorrow. SW will follow up with patient tomorrow morning to finalize and review discharge plan. SW will continue to follow post liver transplant patient, communicate with liver transplant multidisciplinary team, and assist with discharge planning. KIM Davey Abe Teacher/Mill And Coal Transport Operator [phone] * Home Health Care Note - Erica Acevedo MD - 10/26/2017 1:12 PM EDT Images from the original note were not included. REFERRAL FOR HOME HEALTH SERVICES FORM Patient name: Leoncio Rollins Patient : 1975 Age: 42 y.o. Gender: male SSN: [id number] Address: [facility] [address] [facility] Phone number: [phone] (home) Patient emergency contact: Extended Emergency Contact Information Primary Emergency Contact: Kym Rollins Address: [facility] [address] Mobile Relation: Spouse Secondary Emergency Contact: Kimberly Rollins [facility] Relation: Mother Date of admission: 10/07/2017 Date of discharge: 10/26/2017 Attending provider: David Mendenhall MD Primary care physician: Edgar Fournier MD Code status: Full Code Allergies: Allergies Allergen Reactions ??? Codeine ??? Dilaudid [Hydromorphone] Other (See Comments) Hallucinations ??? Flexeril [Cyclobenzaprine] Insurance Information Insurance Information TRANSPLANT GLOBAL/TRANSPLANT GLOBAL Subscriber: Leoncio Rollins Subscriber#: [id number] Group#: Precert#: GENERIC MANAGED MEDICAID/[employer] Subscriber: Leoncio Rollins Subscriber#: [id number] Group#: [id number] Precert#: Diagnoses Present on Admission Primary Diagnosis: Liver transplant candidate Discharge Diagnosis : Active Hospital Problems Diagnosis Date Noted ??? Liver transplant candidate [Z76.82] 10/07/2017 ??? Liver transplanted ([facility] Dx) [Z94.4] Resolved Hospital Problems Diagnosis Date Noted Date Resolved No resolved problems to display. Prognosis: good Rehabilitation potential: good Diet Diabetic Diet Boost Glucose Control (diabetic supplement) TID Services Required Senior Care Physical Therapy: Plan Treatment/Interventions: Equipment eval/education, Stair [...] Refills: 5 blood-glucose meter (ONETOUCH VERIO SYSTEM) [facility] Use as instructed. Qty: 1 each, Refills: [...] Fax results to liver transplant clinic at [phone]. Isolation Vitals Patient Vitals for the past 4 hrs: BP Temp Temp src Pulse Resp SpO2 10/26/17 1154 133/48 98.8 ??F (37.1 ??C) Oral 75 18 92 % Equipment/Supplies Rolling Walker Home Oxygen 3 L/min continuous. The patient will need the following 3 tests completed on: 10/07/2017 1. Athrombic sleeve only, calf large 3. Specialty Bed - [facility] ONLY 2. IV pole Diagnosis: Authorizing Provider: David Mendenhall MD Ordering Physician: TRINA [DAVID MENDENHALL MD] Physician Certification Further, I certify that my clinical findings support that this patient is homebound (i.e. absences from home require considerable and taxing effort and are for medical reasons or protestant services or infrequently or short duration when for other reasons) due to deconditioning it would be a taxing effort to receive outpatient services. My signature below is to certify that this patient is under my care and that I, or nurse practitioner, or a physician dental ceramist assistant working with me, had a raqr-nw-acrt encounter with this is patient on: 10/26/2017 Follow-up Appointments and Post Hospital Discharge Physician Name No future appointments. [facility] Liver Transplant Office [address] [facility], [address] [address] On 10/31/2017 @ 8:45am AM, in the transplant clinic, 3rd floor of the outpatient building. Discharging Physician Signature and Credentials Discharging Physician: Electronically signed by SHIRA FENG 10/26/2017, 1:10 PM Physician to follow up Information PCP: Edgar Fournier MD PCP address: [address] [place] [id number] PCP phone number: [phone] PCP fax number: None If PCP is not following patient, type physician contact information here: Physician to follow is: Liver Transplant Clinic Phone/fax numbers are: [phone] Program Officer and Credentials Provider/Company Name and Contact Number: Program Officer Name and Telephone Number: * Care Coordination - RADHA Nielsen, GOLF COURSE MECHANIC - 10/25/2017 2:21 PM EDT Abe Teacher/Mill And Coal Transport Operator met with liver transplant multidisciplinary team for daily rounds onpost-liver transplant patient. Post liver transplant patient is not medically ready for discharge at this time. Post-liver transplant patient has been approved by insurance for placement at [facility] in [place], [place]. Transplant team working with patient to [...] and assist with discharge planning. KIM Davey Abe Teacher/Mill And Coal Transport Operator [phone] * Care Coordination - RADHA Nielsen LSW - 10/24/2017 2:39 PM EDT Abe Teacher/Mill And Coal Transport Operator received call from [facility] liaison Trav Guzman [phone], stating patient's pre-cert approved . LEODAN informed Trav that she will be in contact with Liver Transplant Surgery team later today to determine if patient is ready for discharge. LEODAN spoke with Liver Transplant CYCLE LIAISON Bry Feng, patient is not medically ready for discharge at this time. Patient continues on Oxygen and team attempting wean off oxygen prior to discharge. Post-Liver Transplant patient anticipated for discharge or Mon. LEODAN spoke with [facility] [phone], LEODAN informed him patient is not medically [...] and assist with discharge planning. KIM Davey [phone] * Care Coordination - RADHA Nielsen LSW - 10/23/2017 2:46 PM EDT Abe Teacher/Mill And Coal Transport Operator met with post-liver transplant patient at bedside along with patient's spouse Kym Rollins. LEODAN updated patient and spouse of pre- cert pending and that she will update them as soon as she is made aware of insurance's approval. LEODAN informed patient she will contact Maria Alejandra Barnes/Friend Medicaid manager behavioral [phone] today to update her on status as well. Patient less agitated and had no concerns or complaints during visit today. SW observed patient to be calm, easy to engage in conversation, and cooperative throughout meeting. Patient's spouse asked SW about [facility] and requested SW to follow up on their availability again. SW stated she will follow up. Patient stated he does not want to pursue placement at [facility] he wants to go to [facility]. Patient reports he wants to move forward with his decision to go to [facility].He stated he is more comfortable with going there than continuing to pursue additional options. SW confirmed with patient and spouse prior leaving that they want to continue with pre-cert processfor placement at [facility]. Patient stated yes and spouse stated yes if that is what he wants to do that is fine with her. SW confirmed that they do not want SW to follow up with [facility] and both patient as well as spouse stated no, SW does not need to follow up with [facility]. SW will follow up tomorrow with [...] Multidisciplinary team, and assist with discharge planning. KIM Davey [phone] * Plan of Care - Sanjeev Molina MD - 10/22/2017 6:16 PM EDT Chart reviewed. CT abdomen/ pelvis does not show any loculated effusion. Afebrile. Respiratory Viral PCR -ve. Sanjeev Molina MD * Care Coordination - RADHA Nielsen LSW - 10/20/2017 3:35 PM EST Abe Teacher/Mill And Coal Transport Operator received callback from [facility] liaison Kim stating she received referral through [facility] and spoke with post- liver transplant patient. She stated will accept patient. SW was informed by patient on this day that he would like to go to [facility] and wanted SW to follow up with them. LEODAN requested that facility liaison start pre-cert process. Kim she will be able to start pre-cert on Monday morning. They have an opening for patient on 10/24. SW agreed that Monday will be fineto start pre-cert. LEODAN updated Liver Transplant CYCLE LIAISON in regards to this plan. LEODAN will follow up on Monday with [facility], post-liver transplant patient, and Liver Transplantteam on status of pending pre-cert. Ginger GARCIA, KIM [phone] * Plan of Care - Erica Davis [...] intervention. Outcome: Progressing * Care Coordination - Ginger Strickland MSW, GOLF COURSE MECHANIC - 10/19/2017 3:26 PM EST disability coordinator/Mill And Coal Transport Operator contacted post-liver transplant patient's spouse by phone to provideher an update on referrals for placements. SW informed her of facilities that are unable to accept patient due to no bed availability and one of the providers' rehab program is not medicaid certified. LEODAN informed her that [facility] in [place], [place]), has accepted patient and asked if [...] call SW back soon with a decision. SW will continue to follow post liver transplant patient, communicate with liver transplant team, and assist with discharge planning. Ginger Strickland MSW, GOLF COURSE MECHANIC [phone] * Plan of Care - Erica Davis [...] Nielsen, KIM - 10/18/2017 5:31 PM EST Abe Teacher/Mill And Coal Transport Operator met with post-liver transplant patient and spouse at bedside. SW updated spouse, due to patient sleeping during contact. SW informed Kym Rollins/spouse that [facility] isunable to accept patient. SW informed her she contacted [facility] again and left another message. LEODAN sent additional referrals to [facility], [facility], [facility], [facility], [place], [facility], and [facility], [place]. SW will follow up tomorrow with update on referrals. Spouse stated that was fine and she stated she would look at those facilities online this evening. Ginger GARCIA, KIM [phone] * Care Coordination - RADHA Nielsen LSW - 10/18/2017 2:18 PM EST Abe Teacher/Mill And Coal Transport Operator met with post-liver transplant patient at bedside to discuss placement planning. LEODAN informed patient that [facility] unable to accept him. Patient requested SW to contact 2 other facilities ([facility] [phone] and [facility] [phone]) located in [place], [place]. SW attempted to contact both providers while in patient's room. LEODAN left message with [facility] nursing program coordinator Bianca. LEODAN called [facility] no answer and no option to leavemessage. Patient's adult son and his friend were at bedside during visit. LEODAN stated she will send referral to both facilities and follow up again. SW will visit with patient again today to update him on placement options. LEODAN sent referrals to [facility] and [facility]. LEODAN called [facility] and spoke with admissions dept. The provider received referral information and they are reviewing the information now. LEODAN provided callback # and the facility reports they do have bed availability. LEODAN contacted [facility] and left another message with Bianca/nursing program coordinator. LEODAN will continue to follow post liver transplant patient, communicate with liver transplant multidisciplinary team, and assist with discharge planning. KIM Davey [phone] * Care Coordination - RADHA Nielsen LSW - 10/18/2017 9:47 AM EST Abe Teacher/Mill And Coal Transport Operator received callback from Erika/parmjit at [facility], stating they are unable to [...] to pursue at this time. KIM Davey [phone] * Care Coordination - RADHA Nielsen LSW - 10/18/2017 9:29 AM EST Abe Teacher/Mill And Coal Transport Operator contacted [facility] [phone] and spoke with Erika/parmjit. Erika stated she [...] status of placement acceptance. Ginger GARCIA, KIM [phone] * Plan of Care - Darya Hernandez [...] Nielsen LSW - 10/17/2017 5:25 PM EST Abe Teacher/Mill And Coal Transport Operator, met with patient and spouse at bedside earlier on this day. Spouse and patient reviewed list of facilities in area they requested SW to seek out a facility. Patient and spouse would like LEODAN to refer patient to [facility] in [place], [place] [phone]. LOEDAN informed patient and spouse she will send referral today and follow up later today with an update. LEODAN sent referral to [facility] and contacted admissions liaison Erika. Erika stated she did not receive referral. LEODAN sent referral again and called back later in the day. Erika unavailable and legal secretary receptionist stated documentation was not received. LEODAN faxed documentation to [phone]. LEODANcalled legal secretary receptionist back and she stated they received referral. Erika had left for the day. LEODAN tabatha led Kym Rollins/Spouse [phone], but was unable to leave a message [...] and assist with discharge planning. KIM Davey [phone] * Care Coordination - RADHA Nielsen LSW - 10/16/2017 4:33 PM EST Abe Teacher/Mill And Coal Transport Operator met with liver transplant multidisciplinary team for [...] going to consider placements in following locations: [place], [place], [place], or [place]. SW discussed placements at facilities in [facility] including [facility]. Patient stated he would look at list [...] assist with discharge planning. Ginger GARCIA, KIM Abe Teacher/Mill And Coal Transport Operator [phone] * Plan of Care - Renita Delaney [...] Outcome: Progressing * Plan of Care - Renita Delaney RN - 10/13/2017 11:43 AM EST Problem: Insufficient Nutritional Intake Goal: Patient's nutritional intake is adequate Assess and monitor food intake and supplements, patient food preferences, labs, oral cavity (gums, teeth, tongue, mucosa), proper denture fit, and cultural beliefs. Monitor for signs of hypoglycemia and hyperglycemia. Collaborate with interdisciplinary team and initiate plan and interventions as ordered. Outcome: Progressing Problem: Non-violent, nrt-etvu-tubmqpqpidm restraints Less restrictive alternative interventions will be [...] - 10/12/2017 7:32 PM EST Problem: Non-violent, omt-pqfi-guxentvczxh restraints Less restrictive alternative interventions will be [...] in Liver Transplant Recipients IRB Study #: [id number] During the consent process, study inclusion/exclusion criteria [...] criteria: 1. Post transplant care provided by [facility] or rehab facility > 45 days after liver transplant. 2. Unable to have [employer] wireless connectivity or wifi in their home. 3. Patient has any form of psychiatric disorder or a condition that, in the opinion of the loss prevention investigator, may hinder communication with the loss prevention investigator. 4. Inability to cooperate or communicate with the loss prevention investigator. Recipient is eligible for study participation. PI agrees to study participation for this patient. SALIMA RAMIREZ Study Pager: Study Title: Use of Health Informational Technology to Improve Outcomes in Liver Transplant Recipients IRB Study #: [id number] Leoncio Rollins ( ) is a 42 [...] (Telehealth Part II), which is a randomized, loss prevention investigator-initiated study whose goal is to assess [...] - 10/11/2017 10:26 PM EST Problem: Non-violent, ikx-hxpp-dzffrlbmqtx restraints Less restrictive alternative interventions will be [...] - 10/11/2017 10:12 AM EST Problem: Non-violent, qmw-gpmz-aqukrptscwd restraints Less restrictive alternative interventions will be [...] - 10/10/2017 9:30 PM EST Problem: Non-violent, cww-txvl-oleojuffvxw restraints Less restrictive alternative interventions will be [...] interventions as needed. Outcome: Progressing Problem: Non-violent, zqx-oaqe-nylczguneqg restraints Less restrictive alternative interventions will be [...] non-skid footwear provided. Outcome: Progressing Problem: Non-violent, pqy-vjku-ytxpvqkmsiy restraints Less restrictive alternative interventions will be [...] flowsheet. * Care Coordination - RADHA Nielsen, GOLF COURSE MECHANIC - 10/09/2017 3:34 PM EST Abe Teacher/Mill And Coal Transport Operator met with liver transplant multidisciplinary team for [...] assist with discharge planning. ?? Ginger GARCIA, GOLF COURSE MECHANIC Inpatient Liver Transplant Abe Teacher/Mill And Coal Transport Operator [phone] * Plan of Care - Latrice Silvestre [...] non-skid footwear provided. Outcome: Progressing Problem: Non-violent, ema-dhqc-dkpddacrqxy restraints Less restrictive alternative interventions will be [...] Outcome: Progressing * Plan of Care - [facility] - 10/08/2017 11:59 PM EST Problem: [...] assess knowledge base. Outcome: Progressing Problem: Non-violent, lcj-sqna-nzwquxdtyyx restraints Less restrictive alternative interventions will be [...] - 10/08/2017 7:17 PM EST Problem: Non-violent, xtt-hvzt-gnixcfxypup restraints Less restrictive alternative interventions will be [...] MD 10/08/17 1028 Sent in Formalin ?? [id number] 10/08/17 1028 B Gall Bladder Tissue ?? SURGICAL PATHOLOGY EXAM David Mendenhall MD 10/08/17 1133 Sent in Formalin ?? [phone] Comment: Recipient gallbladder C Liver Tissue ?? SURGICAL PATHOLOGY EXAM David Mendenhall MD 10/08/17 1135 Sent in Formalin ?? [phone] Comment: Liver biopsy Prior to leaving the [...] operating room? Yes Other Comments: Signed: EDWINA BARNES Date: 10/08/2017 Time: 12:25 PM documented in this encounter Plan of Treatment Upcoming Encounters Date Type Department Care Team (Late st Contact Info) Description 07/15/2024 9:00 AM EST Hospital Encounter [facility] Interventional Radiology [address] [place] [phone] Herve Carrillo MD [address] [facility] [address] [facility] [place] [phone] documented as of this encounter Procedures Procedure [...] Routine 10/13/2017 2:58 PM EST US DUPLEX [id number] COMPLETE Routine 10/13/2017 9:25 AM EST US [...] Routine 10/09/2017 12:27 PM EST US DUPLEX [id number] COMPLETE Routine 10/09/2017 11:20 AM EST US [...] 1:53 PM EST LACTIC ACID, ARTERIAL, WHOLE BLOOD,[facility] Routine 10/08/2017 1:53 PM EST PROTIME-INR [...] AM EST same Special Needs Aleta Worthington [phone] POC GLU MONITORING DEVICE Routine 10/08/2017 6:13 [...] - 100 mg/dL 10/27/2017 11:50 AM EDT [facility] Blood specimen (specimen) 10/27/2017 11:49 AM EDT 10/27/2017 11:50 AM EDT us Tami Richardson MD POINT OF CARE TEST ORDERABLES F inal Result [facility] [address] * (ABNORMAL) POC Glucose Monitoring Device (10/27/2017 8:00 AM EDT) POC Glucose Monitoring Device 230(H) 70 - 100 mg/dL 10/27/2017 8:02 AM EDT [facility] Blood specimen (specimen) 10/27/2017 8:00 AM EDT 10/27/2017 8:02 AM EDT us Tami Richardson MD POINT OF CARE TEST ORDERABLES F inal Result [facility] [address] * (ABNORMAL) CBC (10/27/2017 7:04 AM EDT) WBC 5.6 3.8 - 10.8 10E3/uL 10/27/2017 8:15 AM EDT [facility] RBC 2.29(L) 4.20 - 5.80 10E6/uL 10/27/2017 8:15 AM EDT [facility] Hemoglobin 7.8(L) 13.2 - 17.1 g/dL 10/27/2017 8:15 AM EDT [facility] Hematocrit 23.2(L) 38.5 - 50.0 % 10/27/2017 8:15 AM EDT [facility] MCV 101.1(H) 80.0 - 100.0 fL 10/27/2017 8:15 AM EDT [facility] MCH 33.8(H) 27.0 - 33.0 pg 10/27/2017 8:15 AM EDT [facility] MCHC 33.4 32.0 - 36.0 g/dL 10/27/2017 8:15 AM EDT [facility] RDW 18.7(H) 11.0 - 15.0 % 10/27/2017 8:15 AM EDT [facility] Platelets 269 140 - 400 10E3/uL 10/27/2017 8:15 AM EDT [facility] MPV 8.2 7.5 - 11.5 fL 10/27/2017 8:15 AM EDT [facility] Whole blood specimen (specimen) 10/27/2017 7:04 AM EDT 10/27/2017 8:01 AM EDT us Shira Feng [employer] LAB BLOOD ORDERABLES Yoselin l Result [facility] [address] * Magnesium (10/27/2017 7:04 AM EDT) Magnesium 1.8 1.5 - 2.5 mg/dL 10/27/2017 8:38 AM EDT [facility] Plasma specimen (specimen) 10/27/2017 7:04 AM EDT 10/27/2017 8:01 AM EDT Shira Feng [employer] INTER[employer] DESIGN[employer] LAB BLOOD ORDERABLES Yoselin margaret Result [facility] [address] [place] [address], [facility] * (ABNORMAL) Renal Function Panel w/EGFR (10/27/2017 7:04 AM EDT) Sodium 142 133 - 146 mmol/L 10/27/2017 8:38 AM EDT [facility] Potassium 4.9 3.5 - 5.3 mmol/L 10/27/2017 8:38 AM EDT [facility] Chloride 99 98 - 110 mmol/L 10/27/2017 8:38 AM EDT [facility] CO2 36(H) 21 - 33 mmol/L 10/27/2017 8:38 AM EDT [facility] Anion Gap 7 3 - 16 mmol/L 10/27/2017 8:38 AM EDT [facility] BUN 48(H) 7 - 25 mg/dL 10/27/2017 8:38 AM EDT [facility] Creatinine 1.65(H) 0.60 - 1.30 mg/dL 10/27/2017 8:38 AM EDT [facility] Glucose 224(H) 70 - 100 mg/dL 10/27/2017 8:38 AM EDT [facility] Calcium 9.2 8.6 - 10.3 mg/dL 10/27/2017 8:38 AM EDT [facility] Phosphorus 5.0(H) 2.1 - 4.7 mg/dL 10/27/2017 8:38 AM EDT [facility] Albumin 3.1(L) 3.5 - 5.7 g/dL 10/27/2017 8:38 AM EDT [facility] Osmolality, Calculated 314(H) 278 - 305 mOsm/kg 10/27/2017 8:38 AM EDT [facility] eGFR AA CKD-EPI 58 See note. 8 8:38 AM EDT [facility] eGFR NONAA CKD-EPI 50 See note. 10/27/2017 8:38 AM EDT [facility] Plasma specimen (specimen) 10/27/2017 7:04 AM EDT 10/27/2017 8:01 AM EDT Narrative [facility] - 10/27/2017 8:38 AM EDT As [...] equation to estimate glomerular filtration rate. ??Jennifer Pelt [employer]. 2009:150(9):604-12 [facility] Tiffanie Feng [facility] LAB BLOOD ORDERABLES Yoselin l Result Performing Organization Address City/[facility]/ZIP Co de Phone Number [facility] [address] [facility]. [address] * (ABNORMAL) Cyclosporine level (10/27/2017 7:04 AM EDT) Cyclosporine, Blood 576(H) 100 - 400 ng/mL 10/27/2017 1:47 PM EDT [facility] Comment: Detection limit: ??30 ng/mL. ??Performed via chemiluminescent microparticle immunoassay on the [employer] i1000. Whole blood specimen (specimen) 10/27/2017 7:04 AM EDT 10/27/2017 8:01 AM EDT [facility] LAB BLOOD ORDERABLES Yoselin l Result [facility] [address] [facility]. [address] * (ABNORMAL) Hepatic Function Panel (10/27/2017 7:04 AM EDT) Total Bilirubin 0.8 0.0 - 1.5 mg/dL 10/27/2017 8:38 AM EDT [facility] Bilirubin, Direct 0.23 0.00 - 0.40 mg/dL 10/27/2017 8:38 AM EDT [facility] AST 13 13 - 39 U/L 10/27/2017 8:38 AM EDT [facility] ALT 19 7 - 52 U/L 10/27/2017 8:38 AM EDT [facility] Alkaline Phosphatase 65 36 - 125 U/L 10/27/2017 8:38 AM EDT [facility] Total Protein 5.9(L) 6.4 - 8.9 g/dL 10/27/2017 8:38 AM EDT [facility] Albumin 3.1(L) 3.5 - 5.7 g/dL 10/27/2017 8:38 AM EDT [facility] Bilirubin, Indirect 0.57 0.00 - 1.10 mg/dL 10/27/2017 8:38 AM EDT [facility] Plasma specimen (specimen) 10/27/2017 7:04 AM EDT 10/27/2017 8:01 AM EDT us David Mendenhall MD LAB BLOOD ORDERABLES Final Resu lt [facility] [address] * (ABNORMAL) POC Glucose Monitoring Device (10/27/2017 5:40 AM EDT) POC Glucose Monitoring Device 186(H) 70 - 100 mg/dL 10/27/2017 5:49 AM EDT [facility] Blood specimen (specimen) 10/27/2017 5:40 AM EDT 10/27/2017 5:48 AM EDT us Tami Richardson MD POINT OF CARE TEST ORDERABLES F inal Result [facility] [address] * (ABNORMAL) POC Glucose Monitoring Device (10/27/2017 1:01 AM EDT) POC Glucose Monitoring Device 266(H) 70 - 100 mg/dL 10/27/2017 1:02 AM EDT [facility] Blood specimen (specimen) 10/27/2017 1:01 AM EDT 10/27/2017 1:01 AM EDT us Tami Richardson MD POINT OF CARE TEST ORDERABLES F inal Result Performing Organization Address City/[facility]/ZIP Co de Phone Number [facility] [address] [facility]. [address] * (ABNORMAL) POC Glucose Monitoring Device (10/26/2017 6:33 PM EDT) POC Glucose Monitoring Device 346(H) 70 - 100 mg/dL 10/26/2017 6:34 PM EDT [facility] Blood specimen (specimen) 10/26/2017 6:33 PM EDT 10/26/2017 6:34 PM EDT us Tami Richardson MD POINT OF CARE TEST ORDERABLES F inal Result Performing Organization Address [facility] Co de Phone Number [facility] [address] [facility]. [address] * (ABNORMAL) POC Glucose Monitoring Device (10/26/2017 4:20 PM EDT) POC Glucose Monitoring Device 388(H) 70 - 100 mg/dL 10/26/2017 4:20 PM EDT [facility] Blood specimen (specimen) 10/26/2017 4:20 PM EDT 10/26/2017 4:20 PM EDT us Tami Richardson MD POINT OF CARE TEST ORDERABLES F inal Result Performing Organization Address City/[facility]/ZIP Co de Phone Number [facility] [address] [facility]. [address] * (ABNORMAL) POC Glucose Monitoring Device (10/26/2017 2:55 PM EDT) POC Glucose Monitoring Device 352(H) 70 - 100 mg/dL 10/26/2017 2:56 PM EDT [facility] Blood specimen (specimen) 10/26/2017 2:55 PM EDT 10/26/2017 2:56 PM EDT Tami Richardson MD POINT OF CARE TEST ORDERABLES F inal Result [facility] [place] [address] [place] [address], [facility] * CT Chest WO contrast (10/26/2017 12:55 [...] M.D. at 10/26/2017 3:42 PM EDT Fox Hna MD IMG CT ORDERABLES Final Result * (ABNORMAL) POC Glucose Monitoring Device (10/26/2017 8:20 AM EDT) Pathologist [facility] POC Glucose Monitoring Device 137(H) 70 - 100 mg/dL 10/26/2017 8:22 AM EDT [facility] Blood specimen (specimen) 10/26/2017 8:20 AM EDT 10/26/2017 8:22 AM EDT Tami Richardson MD POINT OF CARE TEST ORDERABLES F inal Result [facility] [address] * (ABNORMAL) CBC (10/26/2017 6:44 AM EDT) Pathologist [facility] WBC 5.5 3.8 - 10.8 10E3/uL 10/26/2017 7:44 AM EDT [facility] RBC 2.22(L) 4.20 - 5.80 10E6/uL 10/26/2017 7:44 AM EDT [facility] Hemoglobin 7.2(L) 13.2 - 17.1 g/dL 10/26/2017 7:44 AM EDT [facility] Hematocrit 22.7(L) 38.5 - 50.0 % 10/26/2017 7:44 AM EDT [facility] MCV 102.2(H) 80.0 - 100.0 fL 10/26/2017 7:44 AM EDT [facility] MCH 32.5 27.0 - 33.0 pg 10/26/2017 7:44 AM EDT [facility] MCHC 31.8(L) 32.0 - 36.0 g/dL 10/26/2017 7:44 AM EDT [facility] RDW 19.0(H) 11.0 - 15.0 % 10/26/2017 7:44 AM EDT [facility] Platelets 269 140 - 400 10E3/uL 10/26/2017 7:44 AM EDT [facility] MPV 8.1 7.5 - 11.5 fL 10/26/2017 7:44 AM EDT [facility] Whole blood specimen (specimen) 10/26/2017 6:44 AM EDT 10/26/2017 7:25 AM EDT Shira Feng [facility] LAB BLOOD ORDERABLES Yoselin l Result Performing Organization Address [facility] Co de Phone Number [facility] [address] * Magnesium (10/26/2017 6:44 AM EDT) Magnesium 1.9 1.5 - 2.5 mg/dL 10/26/2017 8:13 AM EDT [facility] Plasma specimen (specimen) 10/26/2017 6:44 AM EDT 10/26/2017 7:25 AM EDT [facility] Tiffanie Feng [facility] LAB BLOOD ORDERABLES Yoselin l Result Performing Organization Address [facility] de Phone Number [facility] [address] * (ABNORMAL) Renal Function Panel w/EGFR (10/26/2017 6:44 AM EDT) Sodium 144 133 - 146 mmol/L 10/26/2017 8:13 AM EDT [facility] Potassium 4.8 3.5 - 5.3 mmol/L 10/26/2017 8:13 AM EDT [facility] Chloride 102 98 - 110 mmol/L 10/26/2017 8:13 AM EDT [facility] CO2 34(H) 21 - 33 mmol/L 10/26/2017 8:13 AM EDT [facility] Anion Gap 8 3 - 16 mmol/L 10/26/2017 8:13 AM EDT [facility] BUN 52(H) 7 - 25 mg/dL 10/26/2017 8:13 AM EDT [facility] Creatinine 1.58(H) 0.60 - 1.30 mg/dL 10/26/2017 8:13 AM EDT [facility] Glucose 104(H) 70 - 100 mg/dL 10/26/2017 8:13 AM EDT [facility] Calcium 9.0 8.6 - 10.3 mg/dL 10/26/2017 8:13 AM EDT [facility] Phosphorus 5.4(H) 2.1 - 4.7 mg/dL 10/26/2017 8:13 AM EDT [facility] Albumin 2.9(L) 3.5 - 5.7 g/dL 10/26/2017 8:13 AM EDT [facility] Osmolality, Calculated 312(H) 278 - 305 mOsm/kg 10/26/2017 8:13 AM EDT [facility] eGFR AA CKD-EPI 61 See note. 8 8:13 AM EDT [facility] eGFR NONAA CKD-EPI 53 See note. 10/26/2017 8:13 AM EDT [facility] Plasma specimen (specimen) 10/26/2017 6:44 AM EDT 10/26/2017 7:25 AM EDT Narrative [facility] - 10/26/2017 8:13 AM EDT As [...] equation to estimate glomerular filtration rate. ??Jennifer Pelt [employer]. 2009:150(9):604-12 us Shira Feng [facility] LAB BLOOD ORDERABLES Yoselin l Result [facility] [address] [place] [address], [facility] * (ABNORMAL) Cyclosporine level (10/26/2017 6:44 AM EDT) Cyclosporine, Blood 58(L) 100 - 400 ng/mL 10/26/2017 1:52 PM EDT [facility] Comment: Detection limit: ??30 ng/mL. ??Performed via chemiluminescent microparticle immunoassay on the [employer] Coordinator i1000. Whole blood specimen (specimen) 10/26/2017 6:44 AM EDT 10/26/2017 7:25 AM EDT us Shira Feng CNP LAB BLOOD ORDERABLES Yoselin l Result Performing Organization Address [facility] Co de Phone Number [facility] [address] * (ABNORMAL) Hepatic Function Panel (10/26/2017 6:44 AM EDT) Total Bilirubin 0.7 0.0 - 1.5 mg/dL 10/26/2017 8:13 AM EDT [facility] Bilirubin, Direct 0.22 0.00 - 0.40 mg/dL 10/26/2017 8:13 AM EDT [facility] AST 11(L) 13 - 39 U/L 10/26/2017 8:13 AM EDT [facility] ALT 16 7 - 52 U/L 10/26/2017 8:13 AM EDT [facility] Alkaline Phosphatase 58 36 - 125 U/L 10/26/2017 8:13 AM EDT [facility] Total Protein 5.3(L) 6.4 - 8.9 g/dL 10/26/2017 8:13 AM EDT [facility] Albumin 2.9(L) 3.5 - 5.7 g/dL 10/26/2017 8:13 AM EDT [facility] Bilirubin, Indirect 0.48 0.00 - 1.10 mg/dL 10/26/2017 8:13 AM EDT [facility] Plasma specimen (specimen) 10/26/2017 6:44 AM EDT 10/26/2017 7:25 AM EDT us David Mendenhall MD LAB BLOOD ORDERABLES Final Resu lt Performing Organization Address [facility]/ZIP Co de Phone Number [facility] [address] * (ABNORMAL) POC Glucose Monitoring Device (10/26/2017 5:34 AM EDT) POC Glucose Monitoring Device 121(H) 70 - 100 mg/dL 10/26/2017 5:37 AM EDT [facility] Blood specimen (specimen) 10/26/2017 5:34 AM EDT 10/26/2017 5:36 AM EDT us Tami Richardson MD POINT OF CARE TEST ORDERABLES F inal Result Performing Organization Address City/[facility]/ZIP Co de Phone Number [facility] [address] [facility]. [address] * (ABNORMAL) POC Glucose Monitoring Device (10/25/2017 11:53 PM EDT) POC Glucose Monitoring Device 202(H) 70 - 100 mg/dL 10/25/2017 11:54 PM EDT [facility] Blood specimen (specimen) 10/25/2017 11:53 PM EDT 10/25/2017 11:53 PM EDT us Tami Richardson MD POINT OF CARE TEST ORDERABLES F inal Result Performing Organization Address City/[facility]/ZIP Co de Phone Number [facility] [address] [facility]. [address] * (ABNORMAL) POC Glucose Monitoring Device (10/25/2017 8:04 PM EDT) POC Glucose Monitoring Device 204(H) 70 - 100 mg/dL 10/25/2017 8:06 PM EDT [facility] Blood specimen (specimen) 10/25/2017 8:04 PM EDT 10/25/2017 8:06 PM EDT us Tami Richardson MD POINT OF CARE TEST ORDERABLES F inal Result Performing Organization Address City/[facility]/ZIP Co de Phone Number [facility] [address] [facility] * (ABNORMAL) POC Glucose Monitoring Device (10/25/2017 2:23 PM EDT) POC Glucose Monitoring Device 122(H) 70 - 100 mg/dL 10/25/2017 2:27 PM EDT [facility] Blood specimen (specimen) 10/25/2017 2:23 PM EDT 10/25/2017 2:27 PM EDT us Tami Richardson MD POINT OF CARE TEST ORDERABLES F inal Result Performing Organization Address [facility]/ZIP Co de Phone Number [facility] [address] [facility] * (ABNORMAL) POC Glucose Monitoring Device (10/25/2017 1:58 PM EDT) POC Glucose Monitoring Device 59(L) 70 - 100 mg/dL 10/25/2017 2:00 PM EDT [facility] Blood specimen (specimen) 10/25/2017 1:58 PM EDT 10/25/2017 2:00 PM EDT us Tami Richardson MD POINT OF CARE TEST ORDERABLES F inal Result Performing Organization Address [facility] Co de Phone Number [facility] [address] [facility] * (ABNORMAL) POC Glucose Monitoring Device (10/25/2017 1:42 PM EDT) POC Glucose Monitoring Device 55(L) 70 - 100 mg/dL 10/25/2017 2:00 PM EDT [facility] Blood specimen (specimen) 10/25/2017 1:42 PM EDT 10/25/2017 2:00 PM EDT us Tami Richardson MD POINT OF CARE TEST ORDERABLES F inal Result Performing Organization Address [facility] Co de Phone Number [facility] [address] [facility] * (ABNORMAL) CBC (10/25/2017 8:12 AM EDT) WBC 7.9 3.8 - 10.8 10E3/uL 10/25/2017 10:18 AM EDT [facility] RBC 2.23(L) 4.20 - 5.80 10E6/uL 10/25/2017 10:18 AM EDT [facility] Hemoglobin 7.5(L) 13.2 - 17.1 g/dL 10/25/2017 10:18 AM EDT [facility] Hematocrit 22.8(L) 38.5 - 50.0 % 10/25/2017 10:18 AM EDT [facility] MCV 102.1(H) 80.0 - 100.0 fL 10/25/2017 10:18 AM EDT [facility] MCH 33.4(H) 27.0 - 33.0 pg 10/25/2017 10:18 AM EDT [facility] MCHC 32.7 32.0 - 36.0 g/dL 10/25/2017 10:18 AM EDT [facility] RDW 19.4(H) 11.0 - 15.0 % 10/25/2017 10:18 AM EDT [facility] Platelets 263 140 - 400 10E3/uL 10/25/2017 10:18 AM EDT [facility] MPV 8.6 7.5 - 11.5 fL 10/25/2017 10:18 AM EDT [facility] Whole blood specimen (specimen) 10/25/2017 8:12 AM EDT 10/25/2017 10:16 AM EDT Shira Feng [employer] LAB BLOOD ORDERABLES Yoselin l Result [facility] [address] * Magnesium (10/25/2017 8:12 AM EDT) Magnesium 1.8 1.5 - 2.5 mg/dL 10/25/2017 8:52 AM EDT [facility] Plasma specimen (specimen) 10/25/2017 8:12 AM EDT 10/25/2017 8:23 AM EDT BDNAollie Feng [employer] DES[employer] LAB BLOOD ORDERABLES Yoselin l Result [facility] [address] [place] [address], [place] * (ABNORMAL) Renal Function Panel w/EGFR (10/25/2017 8:12 AM EDT) Sodium 144 133 - 146 mmol/L 10/25/2017 8:52 AM EDT [facility] Potassium 4.9 3.5 - 5.3 mmol/L 10/25/2017 8:52 AM EDT [facility] Chloride 104 98 - 110 mmol/L 10/25/2017 8:52 AM EDT [facility] CO2 31 21 - 33 mmol/L 10/25/2017 8:52 AM EDT [facility] Anion Gap 9 3 - 16 mmol/L 10/25/2017 8:52 AM EDT [facility] BUN 61(H) 7 - 25 mg/dL 10/25/2017 8:52 AM EDT [facility] Creatinine 1.63(H) 0.60 - 1.30 mg/dL 10/25/2017 8:52 AM EDT [facility] Glucose 122(H) 70 - 100 mg/dL 10/25/2017 8:52 AM EDT [facility] Calcium 9.0 8.6 - 10.3 mg/dL 10/25/2017 8:52 AM EDT [facility] Phosphorus 4.8(H) 2.1 - 4.7 mg/dL 10/25/2017 8:52 AM EDT [facility] Albumin 3.0(L) 3.5 - 5.7 g/dL 10/25/2017 8:52 AM EDT [facility] Osmolality, Calculated 317(H) 278 - 305 mOsm/kg 10/25/2017 8:52 AM EDT [facility] eGFR AA CKD-EPI 59 See note. 8 8:52 AM EDT [facility] eGFR NONAA CKD-EPI 51 See note. 10/25/2017 8:52 AM T [facility] Plasma specimen (specimen) 10/25/2017 8:12 AM EDT 10/25/2017 8:23 AM EDT [facility] - 10/25/2017 8:52 AM EDT As [...] equation to estimate glomerular filtration rate. ??Jennifer Pelt [facility]. 2009:150(9):604-12 [facility] P[facility] BLOOD ORDERABLES Yoselin l Result Performing Organization Address [facility] Co de Phone Number [facility] [address] [facility] * (ABNORMAL) Cyclosporine level (10/25/2017 8:12 AM EDT) Pathologist [facility] Cyclosporine, Blood 60(L) 100 - 400 ng/mL 10/25/2017 1:17 PM EDT [facility] Comment: Detection limit: ??30 ng/mL. ??Performed via chemiluminescent microparticle immunoassay on the [employer] i1000. Whole blood specimen (specimen) 10/25/2017 8:12 AM EDT 10/25/2017 12:12 PM EDT [facility] BLOOD ORDERABLES Yoselin l Result Performing Organization Address [facility] de Phone Number [facility] [address] [facility] * (ABNORMAL) Hepatic Function Panel (10/25/2017 8:12 AM EDT) Pathologist [facility] Total Bilirubin 0.7 0.0 - 1.5 mg/dL 10/25/2017 8:52 AM EDT [facility] Bilirubin, Direct 0.21 0.00 - 0.40 mg/dL 10/25/2017 8:52 AM EDT [facility] AST 14 13 - 39 U/L 10/25/2017 8:52 AM EDT [facility] ALT 18 7 - 52 U/L 10/25/2017 8:52 AM EDT [facility] Alkaline Phosphatase 61 36 - 125 U/L 10/25/2017 8:52 AM EDT [facility] Total Protein 5.5(L) 6.4 - 8.9 g/dL 10/25/2017 8:52 AM EDT [facility] Albumin 3.0(L) 3.5 - 5.7 g/dL 10/25/2017 8:52 AM EDT [facility] Bilirubin, Indirect 0.49 0.00 - 1.10 mg/dL 10/25/2017 8:52 AM EDT [facility] Plasma specimen (specimen) 10/25/2017 8:12 AM EDT 10/25/2017 8:23 AM EDT David Mendenhall MD LAB BLOOD ORDERABLES Final Resu lt [facility] [address] [facility] * (ABNORMAL) POC Glucose Monitoring Device (10/25/2017 8:00 AM EDT) POC Glucose Monitoring Device 140(H) 70 - 100 mg/dL 10/25/2017 8:02 AM EDT [facility] Blood specimen (specimen) 10/25/2017 8:00 AM EDT 10/25/2017 8:01 AM EDT Tami Richardson MD POINT OF CARE TEST ORDERABLES F inal Result Performing Organization Address [facility]/ZIP Co de Phone Number [facility] [address] * (ABNORMAL) Sputum Culture plus Stain (10/25/2017 7:12 AM EDT) Gram Stain Result Minimal Oral Contamination <25 Polymorphonuclear Leukocytes; <10 Squamous Epithelial Cells Per Low Power Field [facility] Gram Stain Result Moderate Gram Positive Cocci in Chains and Pairs; [facility] Culture Result Heavy Growth [facility] Culture Result Normal Respiratory Brionna [facility] Organism 2 Scant Growth(A) [facility] Organism 2 Pseudomonas fluorescens(A) [facility] Organism 2 Identified by MALDI-TOF MS(A) [facility] Organism 2 Testing Performed at Laboratory(A) [facility] Sputum specimen (specimen) SPUTUM SPECIMEN / [...] ORDERABLE S Final Result Performing Organization Address [facility] Co de Phone Number [facility] [address] [place] [address] * POC Glucose Monitoring Device (10/25/2017 5:48 AM EDT) POC Glucose Monitoring Device 95 70 - 100 mg/dL 10/25/2017 5:49 AM EDT [facility] Blood specimen (specimen) 10/25/2017 5:48 AM EDT 10/25/2017 5:49 AM EDT Tami Richardson MD POINT OF CARE TEST ORDERABLES F inal Result Performing Organization Address [facility] de Phone Number [facility] [address] [place] [address] * (ABNORMAL) POC Glucose Monitoring Device (10/25/2017 5:25 AM EDT) POC Glucose Monitoring Device 62(L) 70 - 100 mg/dL 10/25/2017 5:27 AM EDT [facility] Blood specimen (specimen) 10/25/2017 5:25 AM EDT 10/25/2017 5:27 AM EDT Tami Richardson MD POINT OF CARE TEST ORDERABLES F inal Result Performing Organization Address [facility] Co de Phone Number [facility] [address] [place] [address] * (ABNORMAL) POC Glucose Monitoring Device (10/24/2017 11:28 PM EDT) POC Glucose Monitoring Device 126(H) 70 - 100 mg/dL 10/24/2017 11:30 PM EDT [facility] Blood specimen (specimen) 10/24/2017 11:28 PM EDT 10/24/2017 11:29 PM EDT Tami Richardson MD POINT OF CARE TEST ORDERABLES F inal Result Performing Organization Address City/[facility]/ZIP Co de Phone Number [facility] [address] [facility]. [address] * (ABNORMAL) POC Glucose Monitoring Device (10/24/2017 7:36 PM EDT) POC Glucose Monitoring Device 177(H) 70 - 100 mg/dL 10/24/2017 7:56 PM EDT [facility] Blood specimen (specimen) 10/24/2017 7:36 PM EDT 10/24/2017 7:56 PM EDT Tami Richardson MD POINT OF CARE TEST ORDERABLES F inal Result Performing Organization Address [facility] Co de Phone Number [facility] [address] [facility]. [address] * NM Pulmonary V-Q with gas [...] 10/24/2017 5:06 PM EDT Erica Acevedo MD [facility] [place] ORDERABLES Final Resul t * Magnesium (10/24/2017 3:25 PM EDT) Magnesium 1.9 1.5 - 2.5 mg/dL 10/24/2017 4:08 PM EDT [facility] Plasma specimen (specimen) 10/24/2017 3:25 PM EDT 10/24/2017 3:38 PM EDT Shira Feng [facility] BLOOD ORDERABLES Yoselin l Result [facility] [address]. [address] * (ABNORMAL) Renal Function Panel w/EGFR (10/24/2017 3:25 PM EDT) Sodium 140 133 - 146 mmol/L 10/24/2017 4:08 PM EDT [facility] Potassium 5.6(H) 3.5 - 5.3 mmol/L 10/24/2017 4:08 PM EDT [facility] Chloride 102 98 - 110 mmol/L 10/24/2017 4:08 PM EDT [facility] CO2 31 21 - 33 mmol/L 10/24/2017 4:08 PM EDT [facility] Anion Gap 7 3 - 16 mmol/L 10/24/2017 4:08 PM EDT [facility] BUN 64(H) 7 - 25 mg/dL 10/24/2017 4:08 PM EDT [facility] Creatinine 1.71(H) 0.60 - 1.30 mg/dL 10/24/2017 4:08 PM EDT [facility] Glucose 301(H) 70 - 100 mg/dL 10/24/2017 4:08 PM EDT [facility] Calcium 8.7 8.6 - 10.3 mg/dL 10/24/2017 4:08 PM EDT [facility] Phosphorus 4.4 2.1 - 4.7 mg/dL 10/24/2017 4:08 PM EDT [facility] Albumin 2.9(L) 3.5 - 5.7 g/dL 10/24/2017 4:08 PM EDT [facility] Osmolality, Calculated 320(H) 278 - 305 mOsm/kg 10/24/2017 4:08 PM EDT [facility] eGFR AA CKD-EPI 56 See note. 8 4:08 PM EDT [facility] eGFR NONAA CKD-EPI 48 See note. 10/24/2017 4:08 PM EDT [facility] Plasma specimen (specimen) 10/24/2017 3:25 PM EDT 10/24/2017 3:38 PM EDT Narrative [facility] - 10/24/2017 4:08 PM EDT As [...] equation to estimate glomerular filtration rate. ??Jennifer Pelt Shearer Med. 2009:150(9):604-12 [facility] BLOOD ORDERABLES Yoselin l Result Performing Organization Address [facility] Co de Phone Number [facility] [address] [facility] * (ABNORMAL) Cyclosporine level (10/24/2017 3:25 PM EDT) Pathologist [facility] Cyclosporine, Blood 90(L) 100 - 400 ng/mL 10/25/2017 1:17 PM EDT [facility] Comment: Detection limit: ??30 ng/mL. ??Performed via chemiluminescent microparticle immunoassay on the [employer] i1000. Whole blood specimen (specimen) 10/24/2017 3:25 PM EDT 10/24/2017 3:38 PM EDT [facility] BLOOD ORDERABLES Yoselin l Result Performing Organization Address [facility] Co de Phone Number [facility] [address] [facility] * (ABNORMAL) Hepatic Function Panel (10/24/2017 3:25 PM EDT) Pathologist [facility] Total Bilirubin 0.7 0.0 - 1.5 mg/dL 10/24/2017 4:08 PM EDT [facility] Bilirubin, Direct 0.34 0.00 - 0.40 mg/dL 10/24/2017 4:08 PM EDT [facility] AST 11(L) 13 - 39 U/L 10/24/2017 4:08 PM EDT [facility] ALT 20 7 - 52 U/L 10/24/2017 4:08 PM EDT [facility] Alkaline Phosphatase 66 36 - 125 U/L 10/24/2017 4:08 PM EDT [facility] Total Protein 5.3(L) 6.4 - 8.9 g/dL 10/24/2017 4:08 PM EDT [facility] Albumin 2.9(L) 3.5 - 5.7 g/dL 10/24/2017 4:08 PM EDT [facility] Bilirubin, Indirect 0.36 0.00 - 1.10 mg/dL 10/24/2017 4:08 PM EDT [facility] Plasma specimen (specimen) 10/24/2017 3:25 PM EDT 10/24/2017 3:38 PM EDT us David Mendenhall MD LAB BLOOD ORDERABLES Final Resu lt [facility] [address] [facility]. [address] * (ABNORMAL) POC Glucose Monitoring Device (10/24/2017 2:55 PM EDT) POC Glucose Monitoring Device 310(H) 70 - 100 mg/dL 10/24/2017 3:06 PM EDT [facility] Blood specimen (specimen) 10/24/2017 2:55 PM EDT 10/24/2017 3:06 PM EDT us Tami Richardson MD POINT OF CARE TEST ORDERABLES F inal Result Performing Organization Address City/[facility]/ZIP Co de Phone Number [facility] [address] [facility] * VASC Venous Duplex Lower Extremity Bilateral [...] contralateral CFV is routinely examined. Shira Feng [employer] DES[employer] CV VASCULAR ORDERABLES Fi nal Result * [...] Glucose Monitoring Device (10/24/2017 8:42 AM EDT) [facility] POC Glucose Monitoring Device 87 70 - 100 mg/dL 10/24/2017 8:52 AM EDT [facility] Blood specimen (specimen) 10/24/2017 8:42 AM EDT 10/24/2017 8:52 AM EDT Tami Richardson MD POINT OF CARE TEST ORDERABLES F inal Result [facility] [address] * (ABNORMAL) CBC (10/24/2017 7:25 AM EDT) [facility] WBC 6.5 3.8 - 10.8 10E3/uL 10/24/2017 8:45 AM EDT [facility] RBC 2.09(L) 4.20 - 5.80 10E6/uL 10/24/2017 8:45 AM EDT [facility] Hemoglobin 7.1(L) 13.2 - 17.1 g/dL 10/24/2017 8:45 AM EDT [facility] Hematocrit 22.0(L) 38.5 - 50.0 % 10/24/2017 8:45 AM EDT [facility] MCV 105.4(H) 80.0 - 100.0 fL 10/24/2017 8:45 AM EDT [facility] MCH 34.0(H) 27.0 - 33.0 pg 10/24/2017 8:45 AM EDT [facility] MCHC 32.3 32.0 - 36.0 g/dL 10/24/2017 8:45 AM EDT [facility] RDW 19.8(H) 11.0 - 15.0 % 10/24/2017 8:45 AM EDT [facility] Platelets 199 140 - 400 10E3/uL 10/24/2017 8:45 AM EDT [facility] MPV 8.7 7.5 - 11.5 fL 10/24/2017 8:45 AM EDT [facility] Whole blood specimen (specimen) 10/24/2017 7:25 AM EDT 10/24/2017 7:40 AM EDT us Shira Feng [employer] LAB BLOOD ORDERABLES Yoselin robles Result [facility] [address] [place] [address], [facility] * RACHAEL RHYTHM STRIP - SCAN (10/24/2017 7:05 AM EDT) us Scanning [employer]ch[employer] SCAN DOCS - NO RESULTS Final Res ult * (ABNORMAL) Urinalysis w/Reflex to Microscop, No Culture (10/23/2017 11:32 PM EDT) Color, UA Yellow Yellow,Straw 10/24/2017 12:18 AM EDT [facility] Clarity, UA Clear Clear 10/24/2017 12:18 AM EDT [facility] Specific [place], UA 1.016 1.005 - 1.035 10/24/2017 12:18 AM EDT [facility] pH, UA 5.0 5.0 - 8.0 10/24/2017 12:18 AM EDT [facility] Protein, UA Negative Negative mg/dL 10/24/2017 12:18 AM EDT [facility] Glucose, UA Negative Negative mg/dL 10/24/2017 12:18 AM EDT [facility] Ketones, UA Negative Negative mg/dL 10/24/2017 12:18 AM EDT [facility] Bilirubin, UA Negative Negative 10/24/2017 12:18 AM EDT [facility] Blood, UA Negative Negative 10/24/2017 12:18 AM EDT [facility] Nitrite, UA Negative Negative 10/24/2017 12:18 AM EDT [facility] Urobilinogen, UA 2.0(H) 0.2 - 1.9 mg/dL 10/24/2017 12:18 AM EDT [facility] Leukocyte Esterase, UA Negative Negative 10/24/2017 12:18 AM EDT [facility] Urine specimen (specimen) 10/23/2017 11:32 PM EDT 10/23/2017 11:45 PM EDT Narrative [facility] - 10/24/2017 12:18 AM EDT Microscopic testing is not performed when the dipstick is negative for blood, leukocyte, protein and nitrite. Fox Han MD URINE ORDERABLES Final Result Performing Organization Address City/[facility]/ZIP Co de Phone Number [facility] [address] * (ABNORMAL) POC Glucose Monitoring Device (10/23/2017 11:24 PM EDT) POC Glucose Monitoring Device 234(H) 70 - 100 mg/dL 10/23/2017 11:51 PM EDT [facility] Blood specimen (specimen) 10/23/2017 11:24 PM EDT 10/23/2017 11:51 PM EDT Tami Richardson MD POINT OF CARE TEST ORDERABLES F inal Result Performing Organization Address City/[facility]/ZIP Co de Phone Number [facility] [address] * EKG REPORT - SCAN (10/23/2017 9:31 PM EDT) us Scanning Uchhim SCAN DOCS - NO RESULTS Final Res ult * (ABNORMAL) POC Glucose Monitoring Device (10/23/2017 8:54 PM EDT) POC Glucose Monitoring Device 214(H) 70 - 100 mg/dL 10/23/2017 9:06 PM EDT [facility] Blood specimen (specimen) 10/23/2017 8:54 PM EDT 10/23/2017 9:06 PM EDT Tami Richardson MD POINT OF CARE TEST ORDERABLES F inal Result Performing Organization Address [facility] Co de Phone Number [facility] [address] [facility] * Blood Culture-Peripheral (10/23/2017 5:46 PM EDT) Culture Result No Growth After 5 Days [facility] Blood specimen (specimen) BLOOD SPECIMEN / Unknown 10/23/2017 5:46 PM EDT 10/23/2017 6:23 PM EDT Fox Han MD MICROBIOLOGY - GENERAL ORDERABLE S Final Result Performing Organization Address [facility] Co de Phone Number [facility] [address] [place] [address]. [address] * (ABNORMAL) POC Glucose Monitoring Device (10/23/2017 5:39 PM EDT) POC Glucose Monitoring Device 151(H) 70 - 100 mg/dL 10/23/2017 5:41 PM EDT [facility] Blood specimen (specimen) 10/23/2017 5:39 PM EDT 10/23/2017 5:41 PM EDT Tami Richardson MD POINT OF CARE TEST ORDERABLES F inal Result Performing Organization Address [facility] Co de Phone Number [facility] [address] [facility] * X-ray Portable Chest (10/23/2017 5:01 [...] - 100 mg/dL 10/23/2017 1:38 PM EDT [facility] Blood specimen (specimen) 10/23/2017 1:36 PM EDT 10/23/2017 1:38 PM EDT Tami Richardson MD POINT OF CARE TEST ORDERABLES F inal Result [facility] [address] [place] [address], [facility] * POC Glucose Monitoring Device (10/23/2017 8:09 AM EDT) POC Glucose Monitoring Device 77 70 - 100 mg/dL 10/23/2017 8:11 AM EDT [facility] Blood specimen (specimen) 10/23/2017 8:09 AM EDT 10/23/2017 8:11 AM EDT us Tami Richardson MD POINT OF CARE TEST ORDERABLES F inal Result Performing Organization Address [facility] Co de Phone Number [facility] [address] * (ABNORMAL) Tacrolimus level (10/23/2017 6:13 AM EDT) Tacrolimus Lvl 3.9(L) 5.0 - 20.0 ng/mL 10/23/2017 11:17 AM EDT [facility] Comment: Detection limit: ??2 ng/mL. ??Performed via chemiluminescent microparticle immunoassay on the [employer] i1000. Whole blood specimen (specimen) 10/23/2017 6:13 AM EDT 10/23/2017 6:28 AM EDT us David Mendenhall MD LAB BLOOD ORDERABLES Final Resu lt Performing Organization Address [facility] Co de Phone Number [facility] [address] * (ABNORMAL) Renal Function Panel w/EGFR (10/23/2017 6:13 AM EDT) Sodium 142 133 - 146 mmol/L 10/23/2017 7:08 AM EDT [facility] Potassium 4.7 3.5 - 5.3 mmol/L 10/23/2017 7:08 AM EDT [facility] Chloride 104 98 - 110 mmol/L 10/23/2017 7:08 AM EDT [facility] CO2 31 21 - 33 mmol/L 10/23/2017 7:08 AM EDT [facility] Anion Gap 7 3 - 16 mmol/L 10/23/2017 7:08 AM EDT [facility] BUN 66(H) 7 - 25 mg/dL 10/23/2017 7:08 AM EDT [facility] Creatinine 1.91(H) 0.60 - 1.30 mg/dL 10/23/2017 7:08 AM EDT [facility] Glucose 95 70 - 100 mg/dL 10/23/2017 7:08 AM EDT [facility] Calcium 9.1 8.6 - 10.3 mg/dL 10/23/2017 7:08 AM EDT [facility] Phosphorus 3.9 2.1 - 4.7 mg/dL 10/23/2017 7:08 AM EDT [facility] Albumin 3.0(L) 3.5 - 5.7 g/dL 10/23/2017 7:08 AM EDT [facility] Osmolality, Calculated 313(H) 278 - 305 mOsm/kg 10/23/2017 7:08 AM EDT [facility] eGFR AA CKD-EPI 49 See note. 8 7:08 AM EDT [facility] eGFR NONAA CKD-EPI 42 See note. 10/23/2017 7:08 AM EDT [facility] Plasma specimen (specimen) 10/23/2017 6:13 AM EDT 10/23/2017 6:28 AM EDT Narrative [facility] - 10/23/2017 7:08 AM EDT As [...] equation to estimate glomerular filtration rate. ??Jennifer Pelt Shearer Med. 2009:150(9):604-12 us David Mendenhall MD LAB BLOOD ORDERABLES Final Resu lt [facility] [address] [place] [address], [facility] * Magnesium (10/23/2017 6:13 AM EDT) Magnesium 2.2 1.5 - 2.5 mg/dL 10/23/2017 7:08 AM EDT [facility] Plasma specimen (specimen) 10/23/2017 6:13 AM EDT 10/23/2017 6:28 AM EDT us David Mendenhall MD LAB BLOOD ORDERABLES Final Resu lt Performing Organization Address [facility] Co de Phone Number [facility] [address] * (ABNORMAL) Hepatic Function Panel (10/23/2017 6:13 AM EDT) Total Bilirubin 0.7 0.0 - 1.5 mg/dL 10/23/2017 7:08 AM EDT [facility] Bilirubin, Direct 0.16 0.00 - 0.40 mg/dL 10/23/2017 7:08 AM EDT [facility] AST 13 13 - 39 U/L 10/23/2017 7:08 AM EDT [facility] ALT 24 7 - 52 U/L 10/23/2017 7:08 AM EDT [facility] Alkaline Phosphatase 71 36 - 125 U/L 10/23/2017 7:08 AM EDT [facility] Total Protein 5.7(L) 6.4 - 8.9 g/dL 10/23/2017 7:08 AM EDT [facility] Albumin 3.0(L) 3.5 - 5.7 g/dL 10/23/2017 7:08 AM EDT [facility] Bilirubin, Indirect 0.54 0.00 - 1.10 mg/dL 10/23/2017 7:08 AM EDT [facility] Plasma specimen (specimen) 10/23/2017 6:13 AM EDT 10/23/2017 6:28 AM EDT us David Mendenhall MD LAB BLOOD ORDERABLES Final Resu lt Performing Organization Address [facility]/ZIP Co de Phone Number [facility] [address] [facility] * (ABNORMAL) CBC (10/23/2017 6:13 AM EDT) WBC 8.4 3.8 - 10.8 10E3/uL 10/23/2017 6:36 AM EDT [facility] RBC 2.23(L) 4.20 - 5.80 10E6/uL 10/23/2017 6:36 AM EDT [facility] Hemoglobin 7.7(L) 13.2 - 17.1 g/dL 10/23/2017 6:36 AM EDT [facility] Hematocrit 23.1(L) 38.5 - 50.0 % 10/23/2017 6:36 AM EDT [facility] MCV 103.3(H) 80.0 - 100.0 fL 10/23/2017 6:36 AM EDT [facility] MCH 34.5(H) 27.0 - 33.0 pg 10/23/2017 6:36 AM EDT [facility] MCHC 33.4 32.0 - 36.0 g/dL 10/23/2017 6:36 AM EDT [facility] RDW 19.9(H) 11.0 - 15.0 % 10/23/2017 6:36 AM EDT [facility] Platelets 247 140 - 400 10E3/uL 10/23/2017 6:36 AM EDT [facility] MPV 8.6 7.5 - 11.5 fL 10/23/2017 6:36 AM EDT [facility] Whole blood specimen (specimen) 10/23/2017 6:13 AM EDT 10/23/2017 6:28 AM EDT us David Mendenhall MD LAB BLOOD ORDERABLES Final Resu lt [facility] [address] * (ABNORMAL) POC Glucose Monitoring Device (10/22/2017 8:21 PM EDT) POC Glucose Monitoring Device 276(H) 70 - 100 mg/dL 10/22/2017 8:29 PM EDT [facility] Blood specimen (specimen) 10/22/2017 8:21 PM EDT 10/22/2017 8:29 PM EDT us Tami Richardson MD POINT OF CARE TEST ORDERABLES F inal Result [facility] [address] * (ABNORMAL) POC Glucose Monitoring Device (10/22/2017 6:36 PM EDT) POC Glucose Monitoring Device 302(H) 70 - 100 mg/dL 10/22/2017 6:42 PM EDT [facility] Blood specimen (specimen) 10/22/2017 6:36 PM EDT 10/22/2017 6:42 PM EDT us Tami Richardson MD POINT OF CARE TEST ORDERABLES F inal Result [facility] [address] [facility] * (ABNORMAL) POC Glucose Monitoring Device (10/22/2017 1:56 PM EDT) POC Glucose Monitoring Device 189(H) 70 - 100 mg/dL 10/22/2017 2:03 PM EDT [facility] Blood specimen (specimen) 10/22/2017 1:56 PM EDT 10/22/2017 2:03 PM EDT us Tami Richardson MD POINT OF CARE TEST ORDERABLES F inal Result Performing Organization Address City/[facility]/ZIP Co de Phone Number [facility] [address] [facility] * (ABNORMAL) POC Glucose Monitoring Device (10/22/2017 8:20 AM EDT) POC Glucose Monitoring Device 220(H) 70 - 100 mg/dL 10/22/2017 8:33 AM EDT [facility] Blood specimen (specimen) 10/22/2017 8:20 AM EDT 10/22/2017 8:33 AM EDT us Tami Richardson MD POINT OF CARE TEST ORDERABLES F inal Result [facility] [address] [facility] * Tacrolimus level (10/22/2017 6:41 AM EDT) Tacrolimus Lvl 7.0 5.0 - 20.0 ng/mL 10/22/2017 1:45 PM EDT [facility] Comment: Detection limit: ??2 ng/mL. ??Performed via chemiluminescent microparticle immunoassay on the [employer] i1000. Whole blood specimen (specimen) 10/22/2017 6:41 AM EDT 10/22/2017 7:23 AM EDT us David Mendenhall MD LAB BLOOD ORDERABLES Final Resu lt [facility] [address] [place] [address], [facility] * (ABNORMAL) Renal Function Panel w/EGFR (10/22/2017 6:41 AM EDT) Sodium 140 133 - 146 mmol/L 10/22/2017 7:56 AM [facility] Potassium 4.8 3.5 - 5.3 mmol/L 10/22/2017 7:56 AM EDT [facility] Chloride 102 98 - 110 mmol/L 10/22/2017 7:56 AM EDT [facility] CO2 30 21 - 33 mmol/L 10/22/2017 7:56 AM EDT [facility] Anion Gap 8 3 - 16 mmol/L 10/22/2017 7:56 AM EDT [facility] BUN 75(H) 7 - 25 mg/dL 10/22/2017 7:56 AM EDT [facility] Creatinine 2.15(H) 0.60 - 1.30 mg/dL 10/22/2017 7:56 AM EDT [facility] Glucose 175(H) 70 - 100 mg/dL 10/22/2017 7:56 AM EDT [facility] Calcium 8.8 8.6 - 10.3 mg/dL 10/22/2017 7:56 AM EDT [facility] Phosphorus 5.4(H) 2.1 - 4.7 mg/dL 10/22/2017 7:56 AM EDT [facility] Albumin 2.9(L) 3.5 - 5.7 g/dL 10/22/2017 7:56 AM EDT [facility] Osmolality, Calculated 317(H) 278 - 305 mOsm/kg 10/22/2017 7:56 AM EDT [facility] eGFR AA CKD-EPI 42 See note. 8 7:56 AM EDT [facility] eGFR NONAA CKD-EPI 36 See note. 10/22/2017 7:56 AM EDT [facility] Plasma specimen (specimen) 10/22/2017 6:41 AM EDT 10/22/2017 7:23 AM EDT Narrative [facility] - 10/22/2017 7:56 AM EDT As [...] equation to estimate glomerular filtration rate. ??Jenn[facility]. 2009:150(9):604-12 us David Mendenhall MD LAB BLOOD ORDERABLES Final Resu lt Performing Organization Address City/[facility]/ZIP Co de Phone Number [facility] [address] * Magnesium (10/22/2017 6:41 AM EDT) Magnesium 2.3 1.5 - 2.5 mg/dL 10/22/2017 7:56 AM EDT [facility] Plasma specimen (specimen) 10/22/2017 6:41 AM EDT 10/22/2017 7:23 AM EDT us David Mendenhall MD LAB BLOOD ORDERABLES Final Resu lt [facility] [address] * (ABNORMAL) Hepatic Function Panel (10/22/2017 6:41 AM EDT) Total Bilirubin 0.7 0.0 - 1.5 mg/dL 10/22/2017 7:56 AM EDT [facility] Bilirubin, Direct 0.24 0.00 - 0.40 mg/dL 10/22/2017 7:56 AM EDT [facility] AST 9(L) 13 - 39 U/L 10/22/2017 7:56 AM EDT [facility] ALT 26 7 - 52 U/L 10/22/2017 7:56 AM EDT [facility] Alkaline Phosphatase 62 36 - 125 U/L 10/22/2017 7:56 AM EDT [facility] Total Protein 5.3(L) 6.4 - 8.9 g/dL 10/22/2017 7:56 AM EDT [facility] Albumin 2.9(L) 3.5 - 5.7 g/dL 10/22/2017 7:56 AM EDT [facility] Bilirubin, Indirect 0.46 0.00 - 1.10 mg/dL 10/22/2017 7:56 AM EDT [facility] Plasma specimen (specimen) 10/22/2017 6:41 AM EDT 10/22/2017 7:23 AM EDT us David Mendenhall MD LAB BLOOD ORDERABLES Final Resu lt [facility] [address] * (ABNORMAL) CBC (10/22/2017 6:41 AM EDT) WBC 7.8 3.8 - 10.8 10E3/uL 10/22/2017 7:40 AM EDT [facility] RBC 2.12(L) 4.20 - 5.80 10E6/uL 10/22/2017 7:40 AM EDT [facility] Hemoglobin 7.2(L) 13.2 - 17.1 g/dL 10/22/2017 7:40 AM EDT [facility] Hematocrit 22.0(L) 38.5 - 50.0 % 10/22/2017 7:40 AM EDT [facility] MCV 103.6(H) 80.0 - 100.0 fL 10/22/2017 7:40 AM EDT [facility] MCH 34.1(H) 27.0 - 33.0 pg 10/22/2017 7:40 AM EDT [facility] MCHC 33.0 32.0 - 36.0 g/dL 10/22/2017 7:40 AM EDT [facility] RDW 20.5(H) 11.0 - 15.0 % 10/22/2017 7:40 AM EDT [facility] Platelets 172 140 - 400 10E3/uL 10/22/2017 7:40 AM EDT [facility] MPV 9.1 7.5 - 11.5 fL 10/22/2017 7:40 AM EDT [facility] Whole blood specimen (specimen) 10/22/2017 6:41 AM EDT 10/22/2017 7:23 AM EDT us David Mendenhall MD LAB BLOOD ORDERABLES Final Resu lt Performing Organization Address City/[facility]/ZIP Co de Phone Number [facility] [address] * (ABNORMAL) POC Glucose Monitoring Device (10/21/2017 9:08 PM EST) POC Glucose Monitoring Device 331(H) 70 - 100 mg/dL 10/21/2017 9:10 PM EST [facility] Blood specimen (specimen) 10/21/2017 9:08 PM EST 10/21/2017 9:10 PM EST us Tami Richardson MD POINT OF CARE TEST ORDERABLES F inal Result Performing Organization Address City/[facility]/ZIP Co de Phone Number [facility] [address] * (ABNORMAL) POC Glucose Monitoring Device (10/21/2017 6:32 PM EST) POC Glucose Monitoring Device 316(H) 70 - 100 mg/dL 10/21/2017 6:33 PM EST [facility] Blood specimen (specimen) 10/21/2017 6:32 PM EST 10/21/2017 6:33 PM EST us Tami Richardson MD POINT OF CARE TEST ORDERABLES F inal Result Performing Organization Address [facility] Co de Phone Number [facility] [address] [facility] * (ABNORMAL) POC Glucose Monitoring Device (10/21/2017 12:54 PM EST) POC Glucose Monitoring Device 348(H) 70 - 100 mg/dL 10/21/2017 12:55 PM EST [facility] Blood specimen (specimen) 10/21/2017 12:54 PM EST 10/21/2017 12:55 PM EST Tami Richardson MD POINT OF CARE TEST ORDERABLES F inal Result Performing Organization Address [facility] Co de Phone Number [facility] [address] [facility] * (ABNORMAL) POC Glucose Monitoring Device (10/21/2017 8:15 AM EST) POC Glucose Monitoring Device 319(H) 70 - 100 mg/dL 10/21/2017 8:17 AM EST [facility] Blood specimen (specimen) 10/21/2017 8:15 AM EST 10/21/2017 8:17 AM EST us Tami Richardson MD POINT OF CARE TEST ORDERABLES F inal Result Performing Organization Address [facility] Co de Phone Number [facility] [address] [facility]. [address] * Tacrolimus level (10/21/2017 6:42 AM EST) Tacrolimus Lvl 12.6 5.0 - 20.0 ng/mL 10/21/2017 1:42 PM EST [facility] Comment: Detection limit: ??2 ng/mL. ??Performed via chemiluminescent microparticle immunoassay on the [employer] i1000. Whole blood specimen (specimen) 10/21/2017 6:42 AM EST 10/21/2017 7:12 AM EST us David Mendenhall MD LAB BLOOD ORDERABLES Final Resu lt [facility] [address] [place] [address], [facility] * (ABNORMAL) Renal Function Panel w/EGFR (10/21/2017 6:42 AM EST) Sodium 135 133 - 146 mmol/L 10/21/2017 7:41 AM EST [facility] Potassium 4.7 3.5 - 5.3 mmol/L 10/21/2017 7:41 AM EST [facility] Chloride 99 98 - 110 mmol/L 10/21/2017 7:41 AM EST [facility] CO2 29 21 - 33 mmol/L 10/21/2017 7:41 AM [facility] Anion Gap 7 3 - 16 mmol/L 10/21/2017 7:41 AM [facility] BUN 72(H) 7 - 25 mg/dL 10/21/2017 7:41 AM [facility] Creatinine 2.40(H) 0.60 - 1.30 mg/dL 10/21/2017 7:41 AM [facility] Glucose 304(H) 70 - 100 mg/dL 10/21/2017 7:41 AM [facility] Calcium 8.4(L) 8.6 - 10.3 mg/dL 10/21/2017 7:41 AM [facility] Phosphorus 6.0(H) 2.1 - 4.7 mg/dL 10/21/2017 7:41 AM [facility] Albumin 2.5(L) 3.5 - 5.7 g/dL 10/21/2017 7:41 AM [facility] Osmolality, Calculated 313(H) 278 - 305 mOsm/kg 10/21/2017 7:41 AM EST [facility] eGFR AA CKD-EPI 37 See note. 8 7:41 AM [facility] eGFR NONAA CKD-EPI 32 See note. 10/21/2017 7:41 AM [facility] Plasma specimen (specimen) 10/21/2017 6:42 AM EST 10/21/2017 7:12 AM EST Narrative [facility] - 10/21/2017 7:41 AM EST As [...] equation to estimate glomerular filtration rate. ??Jennifer Pelt [employer]. 2009:150(9):604-12 us David Mendenhall MD LAB BLOOD ORDERABLES Final Resu lt Performing Organization Address [facility] Co de Phone Number [facility] [address] * Magnesium (10/21/2017 6:42 AM EST) Magnesium 2.2 1.5 - 2.5 mg/dL 10/21/2017 7:41 AM EST [facility] Plasma specimen (specimen) 10/21/2017 6:42 AM EST 10/21/2017 7:12 AM EST us David Mendenhall MD LAB BLOOD ORDERABLES Final Resu lt Performing Organization Address [facility] Co de Phone Number [facility] [address] * (ABNORMAL) Hepatic Function Panel (10/21/2017 6:42 AM EST) Total Bilirubin 0.6 0.0 - 1.5 mg/dL 10/21/2017 7:41 AM EST [facility] Bilirubin, Direct 0.18 0.00 - 0.40 mg/dL 10/21/2017 7:41 AM EST [facility] AST 11(L) 13 - 39 U/L 10/21/2017 7:41 AM EST [facility] ALT 29 7 - 52 U/L 10/21/2017 7:41 AM EST [facility] Alkaline Phosphatase 61 36 - 125 U/L 10/21/2017 7:41 AM EST [facility] Total Protein 4.9(L) 6.4 - 8.9 g/dL 10/21/2017 7:41 AM EST [facility] Albumin 2.5(L) 3.5 - 5.7 g/dL 10/21/2017 7:41 AM [facility] Bilirubin, Indirect 0.42 0.00 - 1.10 mg/dL 10/21/2017 7:41 AM [facility] Plasma specimen (specimen) 10/21/2017 6:42 AM EST 10/21/2017 7:12 AM EST us David Mendenhall MD LAB BLOOD ORDERABLES Final Resu lt [facility] [address] [place] [address], [facility] * (ABNORMAL) CBC (10/21/2017 6:42 AM EST) WBC 6.8 3.8 - 10.8 10E3/uL 10/21/2017 7:17 AM [facility] RBC 2.00(L) 4.20 - 5.80 10E6/uL 10/21/2017 7:17 AM [facility] Hemoglobin 7.0(L) 13.2 - 17.1 g/dL 10/21/2017 7:17 AM [facility] Hematocrit 20.4(L) 38.5 - 50.0 % 10/21/2017 7:17 AM [facility] MCV 101.6(H) 80.0 - 100.0 fL 10/21/2017 7:17 AM [facility] MCH 34.7(H) 27.0 - 33.0 pg 10/21/2017 7:17 AM [facility] MCHC 34.1 32.0 - 36.0 g/dL 10/21/2017 7:17 AM [facility] RDW 20.4(H) 11.0 - 15.0 % 10/21/2017 7:17 AM [facility] Platelets 137(L) 140 - 400 10E3/uL 10/21/2017 7:17 AM [facility] MPV 9.2 7.5 - 11.5 fL 10/21/2017 7:17 AM [facility] Whole blood specimen (specimen) 10/21/2017 6:42 AM EST 10/21/2017 7:12 AM EST us David Mendenhall MD LAB BLOOD ORDERABLES Final Resu lt Performing Organization Address City/[facility]/ZIP Co de Phone Number [facility] [address] [facility] * Miscellaneous Reference Test (10/21/2017 6:42 AM EST) Performing Lab [facility] 10/24/2017 5:17 PM EDT [facility] RESULT See Scanned Report in EPIC Lab tab. 10/24/2017 5:17 PM EDT [facility] Test Name [id number] 10/24/2017 5:17 PM EDT [facility] Miscellaneous samples (specimen) 10/21/2017 6:42 AM EST 10/24/2017 5:17 PM EDT Narrative [facility] - 10/24/2017 5:17 PM EDT Tacrolimus by [employer] Test number: [id number] CPT: 62947 ?? Requires 1ML of whole blood in EDTA (lavender top). Refrigerated us Shira Feng CNP LAB BLOOD ORDERABLES Yoselin l Result Performing Organization Address City/[facility] Co de Phone Number [facility] [address] [facility] * LAB (10/21/2017 12:00 AM EST) us Scanning [facility] NURSING INFORMATIONAL/COMMUNICAT ION ORDERABLES Final Result * (ABNORMAL) POC Glucose Monitoring Device (10/20/2017 10:00 PM EST) POC Glucose Monitoring Device 362(H) 70 - 100 mg/dL 10/20/2017 10:01 PM EST [facility] Blood specimen (specimen) 10/20/2017 10:00 PM EST 10/20/2017 10:01 PM EST us Tami Richardson MD POINT OF CARE TEST ORDERABLES F inal Result [facility] [address] [facility]. [address] * (ABNORMAL) POC Glucose Monitoring Device (10/20/2017 8:12 PM EST) POC Glucose Monitoring Device 265(H) 70 - 100 mg/dL 10/20/2017 8:13 PM EST [facility] Blood specimen (specimen) 10/20/2017 8:12 PM EST 10/20/2017 8:13 PM EST Tami Richardson MD POINT OF CARE TEST ORDERABLES F inal Result Performing Organization Address [facility] Co de Phone Number [facility] [address] * (ABNORMAL) POC Glucose Monitoring Device (10/20/2017 1:09 PM EST) POC Glucose Monitoring Device 175(H) 70 - 100 mg/dL 10/20/2017 1:11 PM EST [facility] Blood specimen (specimen) 10/20/2017 1:09 PM EST 10/20/2017 1:11 PM EST Tami Richardson MD POINT OF CARE TEST ORDERABLES F inal Result Performing Organization Address [facility]/ZIP Co de Phone Number [facility] [address] [facility] * Respiratory Viral/Bacterial Panel (10/20/2017 12:52 PM EST) Pathologist [facility] Influenza A Not Detected Not Detected 10/20/2017 6:43 PM EST [facility] Influenza A H1 Not Detected Not Detected 10/20/2017 6:43 PM EST [facility] Influenza A H3 Not Detected Not Detected 10/20/2017 6:43 PM EST [facility] Influenza B Not Detected Not Detected 10/20/2017 6:43 PM EST [facility] Resp. Syncycial Virus A Not Detected Not Detected 10/20/2017 6:43 PM EST [facility] Resp. Syncycial Virus B Not Detected Not Detected 10/20/2017 6:43 PM EST [facility] Adenovirus Not Detected Not Detected 10/20/2017 6:43 PM EST [facility] Human Metapneumovirus Not Detected Not Detected 10/20/2017 6:43 PM EST [facility] Parainfluenza 1 Not Detected Not Detected 10/20/2017 6:43 PM EST [facility] Parainfluenza 2 Not Detected Not Detected 10/20/2017 6:43 PM EST [facility] Parainfluenza 3 Not Detected Not Detected 10/20/2017 6:43 PM EST [facility] Parainfluenza 4 Not Detected Not Detected 10/20/2017 6:43 PM EST [facility] Human Rhinovirus Not Detected Not Detected 10/20/2017 6:43 PM EST [facility] Bordetella parapertussis/bron chiseptica Not Detected Not Detected 10/20/2017 6:43 PM EST [facility] Bordetella pertussis Not Detected Not Detected 10/20/2017 6:43 PM EST [facility] Bordetella holmesii Not Detected Not Detected 10/20/2017 6:43 PM EST [facility] Comment: The Respiratory Viral-Bacterial Panel is an FDA-approved nucleic acid amplification test that detects 13 different viral targets and 3 bacterial targets in nasopharyngeal specimens. ??Performance characteristics of the test on BAL fluid have been determined by [facility]. ??The laboratory is regulated under [...] 12:52 PM EST 10/20/2017 3:28 PM EST Comment:CYCLE LIAISON Shira Feng CNP BODY FLUIDS AND STOOLS OR DERABLES Final Result [facility] [address] [place] [address], [facility] * Staphylococcal Pneumonia Nasal Swab (10/20/2017 12:52 PM EST) Culture Result No Staphylococcus aureus Isolated [facility] Swab of internal nose (specimen) BOTH ANTERIOR NARES / Unknown 10/20/2017 12:52 PM EST 10/20/2017 3:27 PM EST Shira Feng [employer] MICROBIOLOGY - GENERAL OR DERABLES Final Result [facility] [address] [place] [id number] * CT Chest WO contrast (10/20/2017 11:33 [...] at 10/20/2017 12:13 PM EST Shira Feng [facility] IM CT ORDERABLES Final R esult * CT [...] Ser Negative Negative 10/20/2017 2:30 PM EST [facility] Crypto Ag Titer, Ser Not Applicable 10/20/2017 2:30 PM EST [facility] Serum specimen (specimen) 10/20/2017 10:40 AM EST 10/20/2017 11:33 AM EST Shira Feng CNP LAB BLOOD ORDERABLES Yoselin l Result Performing Organization Address [facility]/ZIP Co de Phone Number [facility] [address] [facility] * (ABNORMAL) POC Glucose Monitoring Device (10/20/2017 8:15 AM EST) POC Glucose Monitoring Device 126(H) 70 - 100 mg/dL 10/20/2017 8:19 AM EST [facility] Blood specimen (specimen) 10/20/2017 8:15 AM EST 10/20/2017 8:19 AM EST Tami Richardson MD POINT OF CARE TEST ORDERABLES F inal Result Performing Organization Address City/[facility]/ZIP Co de Phone Number [facility] [address] * Transfuse RBC (10/20/2017 7:47 AM EST) Shira Feng CNP NURSING TREATMENT ORDERAB LES - BLOOD ADMIN Final Result Performing Organization Address City/[facility]/ZIP Co de Phone Number EXTERNAL * Transfuse RBC (10/20/2017 7:46 AM EST) us Tam Neil MD NURSING TREATMENT ORDERABL ES - BLOOD ADMIN Final Result EXTERNAL * TSH (Thyroid Stimulating Hormone) (10/20/2017 6:32 AM EST) TSH 1.76 0.45 - 4.12 uIU/mL 10/20/2017 10:29 AM EST [facility] Serum specimen (specimen) 10/20/2017 6:32 AM EST 10/20/2017 9:52 AM EST us Yasmani Morrell MD LAB BLOOD ORDERABLES Final Resul t Performing Organization Address [facility] Co de Phone Number [address] * T4, free (10/20/2017 6:32 AM EST) Free T4 1.03 0.61 - 1.76 ng/dL 10/20/2017 10:31 AM EST [facility] Serum specimen (specimen) 10/20/2017 6:32 AM EST 10/20/2017 9:52 AM EST us Yasmani Morrell MD LAB BLOOD ORDERABLES Final Resul t Performing Organization Address [facility] Co de Phone Number [address] * (ABNORMAL) T3, Total (10/20/2017 6:32 AM EST) T3, Total 44.5(L) 60.0 - 220.0 ng/dL 10/20/2017 10:36 AM EST [facility] Serum specimen (specimen) 10/20/2017 6:32 AM EST 10/20/2017 9:52 AM EST Narrative [facility] - 10/20/2017 10:36 AM EST ERICA DAVIS RN OK'D ADD ON us Yasmani Morrell MD LAB BLOOD ORDERABLES Final Resul t Performing Organization Address City/[facility] Co de Phone Number [facility] [address] [facility] * (ABNORMAL) Troponin I (10/20/2017 6:32 AM EST) Troponin I 0.06(H) 0.00 - 0.03 ng/mL 10/20/2017 8:15 AM EST [facility] Plasma specimen (specimen) 10/20/2017 6:32 AM EST 10/20/2017 7:09 AM EST us Yasmani Morrell MD LAB BLOOD ORDERABLES Final Resul t Performing Organization Address [facility] Co de Phone Number [facility] [address] [facility] * Tacrolimus level (10/20/2017 6:32 AM EST) Tacrolimus Lvl 12.6 5.0 - 20.0 ng/mL 10/20/2017 11:34 AM EST [facility] Comment: Detection limit: ??2 ng/mL. ??Performed via chemiluminescent microparticle immunoassay on the [employer] i1000. Whole blood specimen (specimen) 10/20/2017 6:32 AM EST 10/20/2017 7:09 AM EST us David Mendenhall MD LAB BLOOD ORDERABLES Final Resu lt Performing Organization Address [facility] Co de Phone Number [facility] [address] [facility] * (ABNORMAL) Renal Function Panel w/EGFR (10/20/2017 6:32 AM EST) Sodium 138 133 - 146 mmol/L 10/20/2017 7:48 AM EST [facility] Potassium 4.6 3.5 - 5.3 mmol/L 10/20/2017 7:48 AM EST [facility] Chloride 101 98 - 110 mmol/L 10/20/2017 7:48 AM EST [facility] CO2 29 21 - 33 mmol/L 10/20/2017 7:48 AM EST [facility] Anion Gap 8 3 - 16 mmol/L 10/20/2017 7:48 AM EST [facility] BUN 62(H) 7 - 25 mg/dL 10/20/2017 7:48 AM [facility] Creatinine 2.24(H) 0.60 - 1.30 mg/dL 10/20/2017 7:48 AM [facility] Glucose 129(H) 70 - 100 mg/dL 10/20/2017 7:48 AM [facility] Calcium 8.4(L) 8.6 - 10.3 mg/dL 10/20/2017 7:48 AM [facility] Phosphorus 5.3(H) 2.1 - 4.7 mg/dL 10/20/2017 7:48 AM [facility] Albumin 2.5(L) 3.5 - 5.7 g/dL 10/20/2017 7:48 AM [facility] Osmolality, Calculated 305 278 - 305 mOsm/kg 10/20/2017 7:48 AM [facility] eGFR AA CKD-EPI 40 See note. 8 7:48 AM [facility] eGFR NONAA CKD-EPI 35 See note. 10/20/2017 7:48 AM [facility] Plasma specimen (specimen) 10/20/2017 6:32 AM EST 10/20/2017 7:09 AM EST [facility] - 10/20/2017 7:48 AM EST As [...] equation to estimate glomerular filtration rate. ??Jennifer Pelt [employer]. 2009:150(9):604-12 us David Mendenhall MD LAB BLOOD ORDERABLES Final Resu lt [facility] [address] [place] [id number], [facility] * Magnesium (10/20/2017 6:32 AM EST) Magnesium 1.9 1.5 - 2.5 mg/dL 10/20/2017 7:48 AM EST [facility] Plasma specimen (specimen) 10/20/2017 6:32 AM EST 10/20/2017 7:09 AM EST us David Mendenhall MD LAB BLOOD ORDERABLES Final Resu lt Performing Organization Address [facility]/ZIP Co de Phone Number [facility] [address] * (ABNORMAL) Hepatic Function Panel (10/20/2017 6:32 AM EST) Total Bilirubin 0.8 0.0 - 1.5 mg/dL 10/20/2017 7:48 AM EST [facility] Bilirubin, Direct 0.31 0.00 - 0.40 mg/dL 10/20/2017 7:48 AM EST [facility] AST 14 13 - 39 U/L 10/20/2017 7:48 AM EST [facility] ALT 35 7 - 52 U/L 10/20/2017 7:48 AM EST [facility] Alkaline Phosphatase 61 36 - 125 U/L 10/20/2017 7:48 AM EST [facility] Total Protein 4.9(L) 6.4 - 8.9 g/dL 10/20/2017 7:48 AM EST [facility] Albumin 2.5(L) 3.5 - 5.7 g/dL 10/20/2017 7:48 AM EST [facility] Bilirubin, Indirect 0.49 0.00 - 1.10 mg/dL 10/20/2017 7:48 AM EST [facility] Plasma specimen (specimen) 10/20/2017 6:32 AM EST 10/20/2017 7:09 AM EST us David Mendenhall MD LAB BLOOD ORDERABLES Final Resu lt Performing Organization Address [facility]/ZIP Co de Phone Number [facility] [address] * (ABNORMAL) CBC (10/20/2017 6:32 AM EST) WBC 9.2 3.8 - 10.8 10E3/uL 10/20/2017 7:30 AM EST [facility] RBC 2.10(L) 4.20 - 5.80 10E6/uL 10/20/2017 7:30 AM EST [facility] Hemoglobin 7.2(L) 13.2 - 17.1 g/dL 10/20/2017 7:30 AM EST [facility] Hematocrit 21.4(L) 38.5 - 50.0 % 10/20/2017 7:30 AM [facility] MCV 101.9(H) 80.0 - 100.0 fL 10/20/2017 7:30 AM EST [facility] MCH 34.3(H) 27.0 - 33.0 pg 10/20/2017 7:30 AM EST [facility] MCHC 33.7 32.0 - 36.0 g/dL 10/20/2017 7:30 AM [facility] RDW 20.4(H) 11.0 - 15.0 % 10/20/2017 7:30 AM [facility] Platelets 171 140 - 400 10E3/uL 10/20/2017 7:30 AM [facility] MPV 9.0 7.5 - 11.5 fL 10/20/2017 7:30 AM [facility] Whole blood specimen (specimen) 10/20/2017 6:32 AM EST 10/20/2017 7:09 AM EST us David Mendenhall MD LAB BLOOD ORDERABLES Final Resu lt Performing Organization Address City/State/[facility] Co de Phone Number [facility] [address] * (ABNORMAL) Troponin I (10/19/2017 11:57 PM EST) Pathologist [facility] Troponin I 0.09(H) 0.00 - 0.03 ng/mL 10/20/2017 12:33 AM [facility] Comment: RESULTS <0.04: This result is [...] Macedo MD LAB BLOOD ORDERABLES Final Result [facility] [address] * ECG 12 lead (MUSE) (10/19/2017 10:55 PM EST) 10/19/2017 10:5 5 PM EST Narrative [facility] - 10/20/2017 12:20 PM EST Ventricular Rate: ??87 ??BPM Atrial Rate: ??87 ??BPM P-R Interval: ??168 ??ms QRS Duration: ??96 ??ms QT: ??372 ??ms QTc: ??447 ??ms P Graham: ??70 ??degrees R Graham: ??89 ??degrees T Graham: ??60 ??degrees Diagnosis Line: ??NORMAL SINUS RHYTHM ^ NONSPECIFIC ST SEGMENT CHANGE ^ ABNORMAL ECG ^ COMPARED TO THE ECG OF 17-OCT-2017 23:37, ^ THERE IS NO SIGNIFICANT CHANGE ^ Confirmed by Carlo PEREZ TEHMINA ([id number]) on 10/20/2017 12:20:00 PM Priti Macedo MD ECG ORDERABLES Final Result Performing Organization Address City/[facility] Co de Phone Number [facility] [address] [place] [address] * (ABNORMAL) POC Glucose Monitoring Device (10/19/2017 10:01 PM EST) POC Glucose Monitoring Device 237(H) 70 - 100 mg/dL 10/19/2017 11:21 PM EST [facility] Blood specimen (specimen) 10/19/2017 10:01 PM EST 10/19/2017 11:21 PM EST Tami Richardson MD POINT OF CARE TEST ORDERABLES F inal Result Performing Organization Address City/[facility]/ZIP Co de Phone Number [facility] [address] * (ABNORMAL) POC Glucose Monitoring Device (10/19/2017 7:27 PM EST) POC Glucose Monitoring Device 150(H) 70 - 100 mg/dL 10/19/2017 7:41 PM EST [facility] Blood specimen (specimen) 10/19/2017 7:27 PM EST 10/19/2017 7:40 PM EST Tami Richardson MD POINT OF CARE TEST ORDERABLES F inal Result Performing Organization Address [facility] Co de Phone Number [facility] [address] [facility] * POC Glucose Monitoring Device (10/19/2017 1:56 PM EST) POC Glucose Monitoring Device 86 70 - 100 mg/dL 10/19/2017 1:57 PM EST [facility] Blood specimen (specimen) 10/19/2017 1:56 PM EST 10/19/2017 1:57 PM EST Tami Richardson MD POINT OF CARE TEST ORDERABLES F inal Result Performing Organization Address City/[facility]/ZIP Co de Phone Number [facility] [address] * Blood culture-Peripheral (10/19/2017 1:10 PM EST) Culture Result No Growth After 5 Days [facility] Blood specimen (specimen) BLOOD SPECIMEN / Unknown 10/19/2017 1:10 PM EST 10/19/2017 1:54 PM EST Tam Neil MD MICROBIOLOGY - GENERAL ORD ERABLES Final Result Performing Organization Address City/[facility]/ZIP Co de Phone Number [facility] [address] * Blood culture-Peripheral (10/19/2017 1:05 PM EST) Culture Result No Growth After 5 Days [facility] Blood specimen (specimen) BLOOD SPECIMEN / Unknown 10/19/2017 1:05 PM EST 10/19/2017 1:53 PM EST Tam Neil MD MICROBIOLOGY - GENERAL ORD ERABLES Final Result [facility] [address] * (ABNORMAL) Urinalysis w/Rfl Microscop, Rfl Culture (10/19/2017 12:49 PM EST) Color, UA Yellow Yellow,Straw 10/19/2017 7:45 PM EST [facility] Clarity, UA Clear Clear 10/19/2017 7:45 PM EST [facility] Specific [place], UA 1.015 1.005 - 1.035 10/19/2017 7:45 PM EST [facility] pH, UA 5.0 5.0 - 8.0 10/19/2017 7:45 PM EST [facility] Protein, UA Negative Negative mg/dL 10/19/2017 7:45 PM EST [facility] Glucose, UA Negative Negative mg/dL 10/19/2017 7:45 PM EST [facility] Ketones, UA Negative Negative mg/dL 10/19/2017 7:45 PM EST [facility] Bilirubin, UA Negative Negative 10/19/2017 7:45 PM EST [facility] Blood, UA Negative Negative 10/19/2017 7:45 PM EST [facility] Nitrite, UA Negative Negative 10/19/2017 7:45 PM EST [facility] Urobilinogen, UA 2.0(H) 0.2 - 1.9 mg/dL 10/19/2017 7:45 PM EST [facility] Leukocyte Esterase, UA Negative Negative 10/19/2017 7:45 PM EST [facility] Urine specimen (specimen) 10/19/2017 12:49 PM EST 10/19/2017 7:07 PM EST Narrative [facility] - 10/19/2017 7:45 PM EST Microscopic testing not performed when the dipstick is negative for Blood, Leukocyte, Protein, and Nitrite. Urine Culture will not be performed if WBC <= 5, Nitrite negative, Leukocyte negative, and Bacteria less than Few. us Tam Neil MD URINE ORDERABLES Final Res ult [facility] [address] [place] [address], [facility] * X-ray Portable Chest (10/19/2017 11:48 AM [...] 10/19/2017 12:50 PM EST Shira Feng CNP IMG DIAGNOSTIC IMAGING OR DERABLES Final Result * Antibody identification (10/19/2017 10:48 AM EST) Antibody Id. #1 Anti-C 10/19/2017 10:48 AM EST [facility] Antibody Id. #2 Anti-D 10/19/2017 10:48 AM EST [facility] Blood specimen (specimen) 10/19/2017 10:48 AM EST 10/19/2017 10:48 AM EST Tam Neil MD BLOOD BANK TEST ORDERABLES Final Result [address] * ELIUD Anti-IgG (10/19/2017 10:47 AM EST) ELIUD IgG Negative 10/19/2017 10:47 AM EST [facility] Blood specimen (specimen) 10/19/2017 10:47 AM EST 10/19/2017 10:47 AM EST Tam Neil MD BLOOD BANK TEST ORDERABLES Final Result Performing Organization Address [facility] Co de Phone Number [address] * Prepare RBC, leukoreduced, 1 Units (10/19/2017 8:59 AM EST) Product Code [id number] [facility] Unit Number [id number] HCLL Dispense Status Presumed Transfused_PT HCLL Blood Expiration Date HCLL Coding System [id number] HCLL Product Code [id number] [facility] Unit Number [id number] HCLL Dispense Status Presumed Transfused_PT HCLL Blood Expiration Date HCLL Coding System [id number] HCLL Specimen from blood bag from blood product (specimen) Tam Neil MD BLOOD BANK PRODUCT ORDERAB LES Final Result HCLL * POC Glucose Monitoring Device (10/19/2017 8:44 AM EST) POC Glucose Monitoring Device 91 70 - 100 mg/dL 10/19/2017 8:46 AM EST [facility] Blood specimen (specimen) 10/19/2017 8:44 AM EST 10/19/2017 8:45 AM EST Tami Richardson MD POINT OF CARE TEST ORDERABLES F inal Result Performing Organization Address [facility]/ZIP Co de Phone Number [facility] [address] * Antibody Screen (10/19/2017 8:44 AM EST) Antibody Screen Positive 10/19/2017 10:04 AM EST [facility] Blood specimen (specimen) 10/19/2017 8:44 AM EST 10/19/2017 8:53 AM EST Narrative [facility] - 10/19/2017 10:07 AM EST Testing performed by [facility] Transfusion Service us Tam Neil MD BLOOD BANK TEST ORDERABLES Final Result Performing Organization Address [facility] Co de Phone Number [facility] [address] [facility] * ABO/Rh (10/19/2017 8:44 AM EST) ABO Grouping O 10/19/2017 10:04 AM EST [facility] Rh Type Negative 10/19/2017 10:04 AM EST [facility] Blood specimen (specimen) 10/19/2017 8:44 AM EST 10/19/2017 8:53 AM EST us Tam Neil MD BLOOD BANK TEST ORDERABLES Final Result Performing Organization Address City/[facility]/ZIP Co de Phone Number [facility] [address] * Tacrolimus level (10/19/2017 6:04 AM EST) Tacrolimus Lvl 9.1 5.0 - 20.0 ng/mL 10/19/2017 10:09 AM EST [facility] Comment: Detection limit: ??2 ng/mL. ??Performed via chemiluminescent microparticle immunoassay on the [employer] i1000. Whole blood specimen (specimen) 10/19/2017 6:04 AM EST 10/19/2017 6:08 AM EST us David Mendenhall MD LAB BLOOD ORDERABLES Final Resu lt [facility] [address] * (ABNORMAL) Renal Function Panel w/EGFR (10/19/2017 6:04 AM EST) Sodium 139 133 - 146 mmol/L 10/19/2017 6:38 AM EST [facility] Potassium 3.6 3.5 - 5.3 mmol/L 10/19/2017 6:38 AM [facility] Chloride 102 98 - 110 mmol/L 10/19/2017 6:38 AM [facility] CO2 30 21 - 33 mmol/L 10/19/2017 6:38 AM [facility] Anion Gap 7 3 - 16 mmol/L 10/19/2017 6:38 AM [facility] BUN 54(H) 7 - 25 mg/dL 10/19/2017 6:38 AM [facility] Creatinine 1.77(H) 0.60 - 1.30 mg/dL 10/19/2017 6:38 AM [facility] Glucose 106(H) 70 - 100 mg/dL 10/19/2017 6:38 AM [facility] Calcium 8.6 8.6 - 10.3 mg/dL 10/19/2017 6:38 AM [facility] Phosphorus 5.0(H) 2.1 - 4.7 mg/dL 10/19/2017 6:38 AM [facility] Albumin 2.6(L) 3.5 - 5.7 g/dL 10/19/2017 6:38 AM [facility] Osmolality, Calculated 303 278 - 305 mOsm/kg 10/19/2017 6:38 AM [facility] eGFR AA CKD-EPI 53 See note. 8 6:38 AM EST [facility] eGFR NONAA CKD-EPI 46 See note. 10/19/2017 6:38 AM EST [facility] Plasma specimen (specimen) 10/19/2017 6:04 AM EST 10/19/2017 6:08 AM EST Narrative [facility] - 10/19/2017 6:38 AM EST As of 10/13/2015 the estimated GFR is calculated from serum creatinine using the Chronic Kidney Disease Epidemiology Collaboration (CKD-EPI) equation in patients 18 years and older. ??The reference range is >60 mL/min/1.73m2. ??eGFR values greater than 90 will be reported as >90mL/min/1.73m2. Reference: Isabel , Neftali LA, Marion CH, Ranulfo YL, Colten AF, , Quan HI, et. al. A new equation to estimate glomerular filtration rate. ??Jennifer Pelt [employer]. 2009:150(9):604-12 us David Mendenhall MD LAB BLOOD ORDERABLES Final Resu lt Performing Organization Address City/[facility]/ZIP Co de Phone Number [facility] [address] [facility] * Magnesium (10/19/2017 6:04 AM EST) Magnesium 2.1 1.5 - 2.5 mg/dL 10/19/2017 6:38 AM EST [facility] Plasma specimen (specimen) 10/19/2017 6:04 AM EST 10/19/2017 6:08 AM EST us David Mendenhall MD LAB BLOOD ORDERABLES Final Resu lt Performing Organization Address [facility]/ZIP Co de Phone Number [facility] [address] [facility] * (ABNORMAL) Hepatic Function Panel (10/19/2017 6:04 AM EST) Total Bilirubin 0.7 0.0 - 1.5 mg/dL 10/19/2017 6:38 AM EST [facility] Bilirubin, Direct 0.36 0.00 - 0.40 mg/dL 10/19/2017 6:38 AM EST [facility] AST 15 13 - 39 U/L 10/19/2017 6:38 AM [facility] ALT 46 7 - 52 U/L 10/19/2017 6:38 AM [facility] Alkaline Phosphatase 61 36 - 125 U/L 10/19/2017 6:38 AM EST [facility] Total Protein 4.8(L) 6.4 - 8.9 g/dL 10/19/2017 6:38 AM [facility] Albumin 2.6(L) 3.5 - 5.7 g/dL 10/19/2017 6:38 AM [facility] Bilirubin, Indirect 0.34 0.00 - 1.10 mg/dL 10/19/2017 6:38 AM [facility] Plasma specimen (specimen) 10/19/2017 6:04 AM EST 10/19/2017 6:08 AM EST us David Mendenhall MD LAB BLOOD ORDERABLES Final Resu lt Performing Organization Address City/State/[facility] Co de Phone Number [facility] [address] [place] [address], [facility] * (ABNORMAL) CBC (10/19/2017 6:04 AM EST) WBC 5.9 3.8 - 10.8 10E3/uL 10/19/2017 6:21 AM [facility] RBC 1.80(L) 4.20 - 5.80 10E6/uL 10/19/2017 6:21 AM [facility] Hemoglobin 6.4(L) 13.2 - 17.1 g/dL 10/19/2017 6:21 AM [facility] Hematocrit 18.7(L) 38.5 - 50.0 % 10/19/2017 6:21 AM [facility] MCV 103.9(H) 80.0 - 100.0 fL 10/19/2017 6:21 AM [facility] MCH 35.4(H) 27.0 - 33.0 pg 10/19/2017 6:21 AM [facility] MCHC 34.1 32.0 - 36.0 g/dL 10/19/2017 6:21 AM EST [facility] RDW 19.9(H) 11.0 - 15.0 % 10/19/2017 6:21 AM EST [facility] Platelets 182 140 - 400 10E3/uL 10/19/2017 6:21 AM EST [facility] MPV 8.8 7.5 - 11.5 fL 10/19/2017 6:21 AM EST [facility] Whole blood specimen (specimen) 10/19/2017 6:04 AM EST 10/19/2017 6:08 AM EST us David Mendenhall MD LAB BLOOD ORDERABLES Final Resu lt Performing Organization Address City/[facility]/ZIP Co de Phone Number [facility] [address] [facility] * EKG REPORT - SCAN (10/19/2017 12:00 AM EST) us Scanning [employer] SCAN DOCS - NO RESULTS Final Res ult * (ABNORMAL) POC Glucose Monitoring Device (10/18/2017 10:47 PM EST) POC Glucose Monitoring Device 325(H) 70 - 100 mg/dL 10/18/2017 10:49 PM EST [facility] Blood specimen (specimen) 10/18/2017 10:47 PM EST 10/18/2017 10:49 PM EST us Tami Richardson MD POINT OF CARE TEST ORDERABLES F inal Result [facility] [address] [facility] * (ABNORMAL) POC Glucose Monitoring Device (10/18/2017 6:48 PM EST) POC Glucose Monitoring Device 265(H) 70 - 100 mg/dL 10/18/2017 6:51 PM EST [facility] Blood specimen (specimen) 10/18/2017 6:48 PM EST 10/18/2017 6:51 PM EST Tami Richardson MD POINT OF CARE TEST ORDERABLES F inal Result Performing Organization Address [facility]/ZIP Co de Phone Number [facility] [address] [facility] * EKG REPORT - SCAN (10/18/2017 4:59 PM EST) us Scanning [employer] SCAN DOCS - NO RESULTS Final Res ult * (ABNORMAL) POC Glucose Monitoring Device (10/18/2017 1:24 PM EST) POC Glucose Monitoring Device 211(H) 70 - 100 mg/dL 10/18/2017 1:27 PM EST [facility] Blood specimen (specimen) 10/18/2017 1:24 PM EST 10/18/2017 1:27 PM EST Tami Richardson MD POINT OF CARE TEST ORDERABLES F inal Result Performing Organization Address [facility] Co de Phone Number [facility] [address] [facility] * (ABNORMAL) POC Glucose Monitoring Device (10/18/2017 8:58 AM EST) POC Glucose Monitoring Device 114(H) 70 - 100 mg/dL 10/18/2017 8:59 AM EST [facility] Blood specimen (specimen) 10/18/2017 8:58 AM EST 10/18/2017 8:59 AM EST Tami Richardson MD POINT OF CARE TEST ORDERABLES F inal Result Performing Organization Address City/[facility] Co de Phone Number [facility] [address] [facility] * Tacrolimus level (10/18/2017 7:32 AM EST) Tacrolimus Lvl 7.1 5.0 - 20.0 ng/mL 10/18/2017 10:59 AM EST [facility] Comment: Detection limit: ??2 ng/mL. ??Performed via chemiluminescent microparticle immunoassay on the [employer] i1000. Whole blood specimen (specimen) 10/18/2017 7:32 AM EST 10/18/2017 8:01 AM EST us David Mendenhall MD LAB BLOOD ORDERABLES Final Resu lt [facility] [address] [place], [place] [address] * (ABNORMAL) Renal Function Panel w/EGFR (10/18/2017 7:32 AM EST) Sodium 140 133 - 146 mmol/L 10/18/2017 8:33 AM [facility] Potassium 3.7 3.5 - 5.3 mmol/L 10/18/2017 8:33 AM [facility] Chloride 103 98 - 110 mmol/L 10/18/2017 8:33 AM [facility] CO2 32 21 - 33 mmol/L 10/18/2017 8:33 AM [facility] Anion Gap 5 3 - 16 mmol/L 10/18/2017 8:33 AM [facility] BUN 50(H) 7 - 25 mg/dL 10/18/2017 8:33 AM [facility] Creatinine 1.56(H) 0.60 - 1.30 mg/dL 10/18/2017 8:33 AM [facility] Glucose 110(H) 70 - 100 mg/dL 10/18/2017 8:33 AM [facility] Calcium 8.6 8.6 - 10.3 mg/dL 10/18/2017 8:33 AM [facility] Phosphorus 4.8(H) 2.1 - 4.7 mg/dL 10/18/2017 8:33 AM [facility] Albumin 2.6(L) 3.5 - 5.7 g/dL 10/18/2017 8:33 AM [facility] Osmolality, Calculated 304 278 - 305 mOsm/kg 10/18/2017 8:33 AM [facility] eGFR AA CKD-EPI 62 See note. 8 8:33 AM EST [facility] eGFR NONAA CKD-EPI 54 See note. 10/18/2017 8:33 AM [facility] Plasma specimen (specimen) 10/18/2017 7:32 AM EST 10/18/2017 8:01 AM EST Narrative [facility] - 10/18/2017 8:33 AM EST As [...] equation to estimate glomerular filtration rate. ??Jennifer Pelt [employer]. 2009:150(9):604-12 us David Mendenhall MD LAB BLOOD ORDERABLES Final Resu lt Performing Organization Address [facility] Co de Phone Number [facility] [address] * Magnesium (10/18/2017 7:32 AM EST) Magnesium 2.0 1.5 - 2.5 mg/dL 10/18/2017 8:33 AM EST [facility] Plasma specimen (specimen) 10/18/2017 7:32 AM EST 10/18/2017 8:01 AM EST us David Mendenhall MD LAB BLOOD ORDERABLES Final Resu lt Performing Organization Address [facility] Co de Phone Number [facility] [address] * (ABNORMAL) Hepatic Function Panel (10/18/2017 7:32 AM EST) Total Bilirubin 0.8 0.0 - 1.5 mg/dL 10/18/2017 8:33 AM EST [facility] Bilirubin, Direct 0.28 0.00 - 0.40 mg/dL 10/18/2017 8:33 AM EST [facility] AST 20 13 - 39 U/L 10/18/2017 8:33 AM EST [facility] ALT 59(H) 7 - 52 U/L 10/18/2017 8:33 AM EST [facility] Alkaline Phosphatase 59 36 - 125 U/L 10/18/2017 8:33 AM EST [facility] Total Protein 4.9(L) 6.4 - 8.9 g/dL 10/18/2017 8:33 AM EST [facility] Albumin 2.6(L) 3.5 - 5.7 g/dL 10/18/2017 8:33 AM EST [facility] Bilirubin, Indirect 0.52 0.00 - 1.10 mg/dL 10/18/2017 8:33 AM EST [facility] Plasma specimen (specimen) 10/18/2017 7:32 AM EST 10/18/2017 8:01 AM EST us David Mendenhall MD LAB BLOOD ORDERABLES Final Resu lt [facility] [address] * (ABNORMAL) CBC (10/18/2017 7:32 AM EST) WBC 7.5 3.8 - 10.8 10E3/uL 10/18/2017 9:05 AM [facility] RBC 2.01(L) 4.20 - 5.80 10E6/uL 10/18/2017 9:05 AM [facility] Hemoglobin 7.2(L) 13.2 - 17.1 g/dL 10/18/2017 9:05 AM [facility] Hematocrit 20.7(L) 38.5 - 50.0 % 10/18/2017 9:05 AM [facility] MCV 103.0(H) 80.0 - 100.0 fL 10/18/2017 9:05 AM [facility] MCH 35.7(H) 27.0 - 33.0 pg 10/18/2017 9:05 AM [facility] MCHC 34.7 32.0 - 36.0 g/dL 10/18/2017 9:05 AM [facility] RDW 20.0(H) 11.0 - 15.0 % 10/18/2017 9:05 AM [facility] Platelets 189 140 - 400 10E3/uL 10/18/2017 9:05 AM EST [facility] Comment:Specimen checked for clots. None detected. Platelet Estimate Adequate 10/18/2017 9:05 AM EST [facility] MPV 9.6 7.5 - 11.5 fL 10/18/2017 9:05 AM EST [facility] Whole blood specimen (specimen) 10/18/2017 7:32 AM EST 10/18/2017 8:01 AM EST Narrative [facility] - 10/18/2017 9:05 AM EST Peripheral blood smear was scanned per review criteria approved by the laboratory medical representative. us David Mendenhall MD LAB BLOOD ORDERABLES Final Resu lt Performing Organization Address City/[facility]/ZIP Co de Phone Number [facility] [address] * Troponin I (10/17/2017 11:48 PM EST) Troponin I <0.04 0.00 - 0.03 ng/mL 10/18/2017 12:21 AM EST [facility] Plasma specimen (specimen) 10/17/2017 11:48 PM EST 10/17/2017 11:51 PM EST us Priti Macedo MD LAB BLOOD ORDERABLES Final Result Performing Organization Address [facility] Co de Phone Number [facility] [address] [facility] * ECG 12 lead (MUSE) (10/17/2017 11:37 PM EST) 10/17/2017 11:3 7 PM EST Narrative [facility] - 10/18/2017 3:06 PM EST Ventricular Rate: ??91 ??BPM Atrial Rate: ??91 ??BPM P-R Interval: ??162 ??ms QRS Duration: ??100 ??ms QT: ??380 ??ms QTc: ??467 ??ms P Graham: ??62 ??degrees R Graham: ??57 ??degrees T Graham: ??19 ??degrees Diagnosis Line: ??NORMAL SINUS RHYTHM ^ POSSIBLE INFEROPOSTERIOR INFARCT (CITED ON OR BEFORE 10-OCT-2017) ^ ABNORMAL ECG ^ COMPARED TO THE ECG OF 10-OCT-2017 03:11, ^ R WAVE GREATER THAN S WAVE IN LEAD V1 ^ Confirmed by MARK ??AGUILA PEREZ (19) on 10/18/2017 3:06:27 PM us Priti Macedo MD ECG ORDERABLES Final Result [facility] [address] [facility] [place] [address] * (ABNORMAL) POC Glucose Monitoring Device (10/17/2017 9:42 PM EST) POC Glucose Monitoring Device 307(H) 70 - 100 mg/dL 10/17/2017 9:43 PM EST [facility] Blood specimen (specimen) 10/17/2017 9:42 PM EST 10/17/2017 9:43 PM EST Tami Richardson MD POINT OF CARE TEST ORDERABLES F inal Result Performing Organization Address [facility] Co de Phone Number [facility] [address] * (ABNORMAL) POC Glucose Monitoring Device (10/17/2017 6:22 PM EST) POC Glucose Monitoring Device 282(H) 70 - 100 mg/dL 10/17/2017 6:23 PM EST [facility] Blood specimen (specimen) 10/17/2017 6:22 PM EST 10/17/2017 6:23 PM EST Tami Richardson MD POINT OF CARE TEST ORDERABLES F inal Result Performing Organization Address City/[facility] Co de Phone Number [facility] [address] [facility] * (ABNORMAL) POC Glucose Monitoring Device (10/17/2017 4:21 PM EST) POC Glucose Monitoring Device 260(H) 70 - 100 mg/dL 10/17/2017 4:22 PM EST [facility] Blood specimen (specimen) 10/17/2017 4:21 PM EST 10/17/2017 4:22 PM EST Tami Richardson MD POINT OF CARE TEST ORDERABLES F inal Result Performing Organization Address [facility] Co de Phone Number [facility] [address] [facility]. [address] * (ABNORMAL) POC Glucose Monitoring Device (10/17/2017 1:14 PM EST) POC Glucose Monitoring Device 178(H) 70 - 100 mg/dL 10/17/2017 1:16 PM EST [facility] Blood specimen (specimen) 10/17/2017 1:14 PM EST 10/17/2017 1:16 PM EST Tami Richardson MD POINT OF CARE TEST ORDERABLES F inal Result Performing Organization Address [facility] Co de Phone Number [facility] [address] [facility]. [address] * (ABNORMAL) POC Glucose Monitoring Device (10/17/2017 8:27 AM EST) POC Glucose Monitoring Device 104(H) 70 - 100 mg/dL 10/17/2017 8:29 AM EST [facility] Blood specimen (specimen) 10/17/2017 8:27 AM EST 10/17/2017 8:29 AM EST Tami Richardson MD POINT OF CARE TEST ORDERABLES F inal Result Performing Organization Address [facility] Co de Phone Number [facility] [address] [facility]. [address] * Tacrolimus level (10/17/2017 6:47 AM EST) Tacrolimus Lvl 5.6 5.0 - 20.0 ng/mL 10/17/2017 11:51 AM EST [facility] Comment: Detection limit: ??2 ng/mL. ??Performed via chemiluminescent microparticle immunoassay on the [employer] i1000. Whole blood specimen (specimen) 10/17/2017 6:47 AM EST 10/17/2017 6:54 AM EST us David Mendenhall MD LAB BLOOD ORDERABLES Final Resu lt [facility] [address] [place] [address], [facility] * (ABNORMAL) Renal Function Panel w/EGFR (10/17/2017 6:47 AM EST) Sodium 141 133 - 146 mmol/L 10/17/2017 7:30 AM EST [facility] Potassium 3.6 3.5 - 5.3 mmol/L 10/17/2017 7:30 AM [facility] Chloride 105 98 - 110 mmol/L 10/17/2017 7:30 AM EST [facility] CO2 30 21 - 33 mmol/L 10/17/2017 7:30 AM [facility] Anion Gap 6 3 - 16 mmol/L 10/17/2017 7:30 AM [facility] BUN 47(H) 7 - 25 mg/dL 10/17/2017 7:30 AM [facility] Creatinine 1.43(H) 0.60 - 1.30 mg/dL 10/17/2017 7:30 AM [facility] Glucose 103(H) 70 - 100 mg/dL 10/17/2017 7:30 AM [facility] Calcium 8.3(L) 8.6 - 10.3 mg/dL 10/17/2017 7:30 AM [facility] Phosphorus 3.3 2.1 - 4.7 mg/dL 10/17/2017 7:30 AM [facility] Albumin 2.5(L) 3.5 - 5.7 g/dL 10/17/2017 7:30 AM [facility] Osmolality, Calculated 305 278 - 305 mOsm/kg 10/17/2017 7:30 AM EST [facility] eGFR AA CKD-EPI 69 See note. 8 7:30 AM EST [facility] eGFR NONAA CKD-EPI 60 See note. 10/17/2017 7:30 AM EST [facility] Plasma specimen (specimen) 10/17/2017 6:47 AM EST 10/17/2017 6:54 AM EST Narrative [facility] - 10/17/2017 7:30 AM EST As [...] equation to estimate glomerular filtration rate. ??Jennifer [employer]. 2009:150(9):604-12 us David Mendenhall MD LAB BLOOD ORDERABLES Final Resu lt Performing Organization Address [facility]/ZIP Co de Phone Number [facility] [address] * Magnesium (10/17/2017 6:47 AM EST) Magnesium 1.9 1.5 - 2.5 mg/dL 10/17/2017 7:30 AM EST [facility] Plasma specimen (specimen) 10/17/2017 6:47 AM EST 10/17/2017 6:54 AM EST us David Mendenhall MD LAB BLOOD ORDERABLES Final Resu lt Performing Organization Address [facility] Co de Phone Number [facility] [address] [facility] * (ABNORMAL) Hepatic Function Panel (10/17/2017 6:47 AM EST) Total Bilirubin 0.8 0.0 - 1.5 mg/dL 10/17/2017 7:30 AM EST [facility] Bilirubin, Direct 0.29 0.00 - 0.40 mg/dL 10/17/2017 7:30 AM EST [facility] AST 23 13 - 39 U/L 10/17/2017 7:30 AM EST [facility] ALT 74(H) 7 - 52 U/L 10/17/2017 7:30 AM EST [facility] Alkaline Phosphatase 63 36 - 125 U/L 10/17/2017 7:30 AM EST [facility] Total Protein 4.7(L) 6.4 - 8.9 g/dL 10/17/2017 7:30 AM EST [facility] Albumin 2.5(L) 3.5 - 5.7 g/dL 10/17/2017 7:30 AM EST [facility] Bilirubin, Indirect 0.51 0.00 - 1.10 mg/dL 10/17/2017 7:30 AM EST [facility] Plasma specimen (specimen) 10/17/2017 6:47 AM EST 10/17/2017 6:54 AM EST us David Mendenhall MD LAB BLOOD ORDERABLES Final Resu lt [facility] [address] [place] [address], [facility] * (ABNORMAL) CBC (10/17/2017 6:47 AM EST) WBC 5.6 3.8 - 10.8 10E3/uL 10/17/2017 7:01 AM [facility] RBC 2.03(L) 4.20 - 5.80 10E6/uL 10/17/2017 7:01 AM [facility] Hemoglobin 7.1(L) 13.2 - 17.1 g/dL 10/17/2017 7:01 AM [facility] Hematocrit 20.9(L) 38.5 - 50.0 % 10/17/2017 7:01 AM [facility] MCV 102.9(H) 80.0 - 100.0 fL 10/17/2017 7:01 AM [facility] MCH 34.7(H) 27.0 - 33.0 pg 10/17/2017 7:01 AM [facility] MCHC 33.8 32.0 - 36.0 g/dL 10/17/2017 7:01 AM [facility] RDW 19.9(H) 11.0 - 15.0 % 10/17/2017 7:01 AM [facility] Platelets 152 140 - 400 10E3/uL 10/17/2017 7:01 AM [facility] MPV 9.0 7.5 - 11.5 fL 10/17/2017 7:01 AM EST [facility] Whole blood specimen (specimen) 10/17/2017 6:47 AM EST 10/17/2017 6:54 AM EST David Mendenhall MD LAB BLOOD ORDERABLES Final Resu lt [facility] [address] [facility]. [address] * (ABNORMAL) POC Glucose Monitoring Device (10/17/2017 5:57 AM EST) POC Glucose Monitoring Device 102(H) 70 - 100 mg/dL 10/17/2017 6:08 AM EST [facility] Blood specimen (specimen) 10/17/2017 5:57 AM EST 10/17/2017 6:08 AM EST Tami Richardson MD POINT OF CARE TEST ORDERABLES F inal Result Performing Organization Address [facility]/ZIP Co de Phone Number [facility] [address] [facility] * (ABNORMAL) POC Glucose Monitoring Device (10/16/2017 9:42 PM EST) POC Glucose Monitoring Device 196(H) 70 - 100 mg/dL 10/16/2017 9:43 PM EST [facility] Blood specimen (specimen) 10/16/2017 9:42 PM EST 10/16/2017 9:43 PM EST Tami Richardson MD POINT OF CARE TEST ORDERABLES F inal Result [facility] [address] [facility] * (ABNORMAL) POC Glucose Monitoring Device (10/16/2017 5:45 PM EST) POC Glucose Monitoring Device 277(H) 70 - 100 mg/dL 10/16/2017 5:46 PM EST [facility] Blood specimen (specimen) 10/16/2017 5:45 PM EST 10/16/2017 5:46 PM EST us Tami Richardson MD POINT OF CARE TEST ORDERABLES F inal Result [facility] [address] [facility] * (ABNORMAL) POC Glucose Monitoring Device (10/16/2017 12:05 PM EST) POC Glucose Monitoring Device 165(H) 70 - 100 mg/dL 10/16/2017 12:06 PM EST [facility] Blood specimen (specimen) 10/16/2017 12:05 PM EST 10/16/2017 12:05 PM EST us Tami Richardson MD POINT OF CARE TEST ORDERABLES F inal Result Performing Organization Address [facility] Co de Phone Number [facility] [address] [facility] * X-ray Portable Chest (10/16/2017 9:34 [...] Taylor M.D. at 10/16/2017 9:54 AM EST Fox Han MD IMG DIAGNOSTIC IMAGING ORDERABLE S Final Result * (ABNORMAL) POC Glucose Monitoring Device (10/16/2017 7:58 AM EST) POC Glucose Monitoring Device 136(H) 70 - 100 mg/dL 10/16/2017 8:00 AM EST [facility] Blood specimen (specimen) 10/16/2017 7:58 AM EST 10/16/2017 8:00 AM EST Tami Richardson MD POINT OF CARE TEST ORDERABLES F inal Result [facility] [address] * Tacrolimus level (10/16/2017 6:42 AM EST) Tacrolimus Lvl 5.5 5.0 - 20.0 ng/mL 10/16/2017 12:06 PM EST [facility] Comment: Detection limit: ??2 ng/mL. ??Performed via chemiluminescent microparticle immunoassay on the [employer] i1000. Whole blood specimen (specimen) 10/16/2017 6:42 AM EST 10/16/2017 6:48 AM EST us David Mendenhall MD LAB BLOOD ORDERABLES Final Resu lt [facility] [address] [place] [id number], [facility] * (ABNORMAL) Renal Function Panel w/EGFR (10/16/2017 6:42 AM EST) Sodium 141 133 - 146 mmol/L 10/16/2017 7:17 AM [facility] Potassium 3.6 3.5 - 5.3 mmol/L 10/16/2017 7:17 AM [facility] Chloride 107 98 - 110 mmol/L 10/16/2017 7:17 AM [facility] CO2 30 21 - 33 mmol/L 10/16/2017 7:17 AM [facility] Anion Gap 4 3 - 16 mmol/L 10/16/2017 7:17 AM [facility] BUN 53(H) 7 - 25 mg/dL 10/16/2017 7:17 AM [facility] Creatinine 1.46(H) 0.60 - 1.30 mg/dL 10/16/2017 7:17 AM [facility] Glucose 116(H) 70 - 100 mg/dL 10/16/2017 7:17 AM [facility] Calcium 8.4(L) 8.6 - 10.3 mg/dL 10/16/2017 7:17 AM [facility] Phosphorus 3.1 2.1 - 4.7 mg/dL 10/16/2017 7:17 AM [facility] Albumin 2.6(L) 3.5 - 5.7 g/dL 10/16/2017 7:17 AM [facility] Osmolality, Calculated 307(H) 278 - 305 mOsm/kg 10/16/2017 7:17 AM [facility] eGFR AA CKD-EPI 67 See note. 8 7:17 AM [facility] eGFR NONAA CKD-EPI 58 See note. 10/16/2017 7:17 AM [facility] Plasma specimen (specimen) 10/16/2017 6:42 AM EST 10/16/2017 6:48 AM EST [facility] - 10/16/2017 7:17 AM EST As [...] equation to estimate glomerular filtration rate. ??Jennifer Pelt [employer]. 2009:150(9):604-12 us David Mendenhall MD LAB BLOOD ORDERABLES Final Resu lt Performing Organization Address [facility] Co de Phone Number [facility] [address] * Magnesium (10/16/2017 6:42 AM EST) Magnesium 2.2 1.5 - 2.5 mg/dL 10/16/2017 7:17 AM EST [facility] Plasma specimen (specimen) 10/16/2017 6:42 AM EST 10/16/2017 6:48 AM EST us David Mendenhall MD LAB BLOOD ORDERABLES Final Resu lt Performing Organization Address [facility] de Phone Number [facility] [address] * (ABNORMAL) Hepatic Function Panel (10/16/2017 6:42 AM EST) Total Bilirubin 0.9 0.0 - 1.5 mg/dL 10/16/2017 7:17 AM EST [facility] Bilirubin, Direct 0.28 0.00 - 0.40 mg/dL 10/16/2017 7:17 AM EST [facility] AST 24 13 - 39 U/L 10/16/2017 7:17 AM EST [facility] ALT 95(H) 7 - 52 U/L 10/16/2017 7:17 AM EST [facility] Alkaline Phosphatase 70 36 - 125 U/L 10/16/2017 7:17 AM EST [facility] Total Protein 4.6(L) 6.4 - 8.9 g/dL 10/16/2017 7:17 AM EST [facility] Albumin 2.6(L) 3.5 - 5.7 g/dL 10/16/2017 7:17 AM [facility] Bilirubin, Indirect 0.62 0.00 - 1.10 mg/dL 10/16/2017 7:17 AM [facility] Plasma specimen (specimen) 10/16/2017 6:42 AM EST 10/16/2017 6:48 AM EST us David Mendenhall MD LAB BLOOD ORDERABLES Final Resu lt [facility] [address] [place] [address], [facility] * (ABNORMAL) CBC (10/16/2017 6:42 AM EST) WBC 7.2 3.8 - 10.8 10E3/uL 10/16/2017 7:21 AM [facility] RBC 2.20(L) 4.20 - 5.80 10E6/uL 10/16/2017 7:21 AM [facility] Hemoglobin 7.8(L) 13.2 - 17.1 g/dL 10/16/2017 7:21 AM [facility] Hematocrit 22.7(L) 38.5 - 50.0 % 10/16/2017 7:21 AM [facility] MCV 103.1(H) 80.0 - 100.0 fL 10/16/2017 7:21 AM [facility] MCH 35.6(H) 27.0 - 33.0 pg 10/16/2017 7:21 AM [facility] MCHC 34.6 32.0 - 36.0 g/dL 10/16/2017 7:21 AM [facility] RDW 19.3(H) 11.0 - 15.0 % 10/16/2017 7:21 AM [facility] Platelets 139(L) 140 - 400 10E3/uL 10/16/2017 7:21 AM [facility] MPV 9.9 7.5 - 11.5 fL 10/16/2017 7:21 AM [facility] Whole blood specimen (specimen) 10/16/2017 6:42 AM EST 10/16/2017 6:48 AM EST David Mendenhall MD LAB BLOOD ORDERABLES Final Resu lt Performing Organization Address [facility] Co de Phone Number [facility] [address] [facility] * (ABNORMAL) POC Glucose Monitoring Device (10/16/2017 6:18 AM EST) POC Glucose Monitoring Device 112(H) 70 - 100 mg/dL 10/16/2017 7:10 AM EST [facility] Blood specimen (specimen) 10/16/2017 6:18 AM EST 10/16/2017 7:10 AM EST us Tami Richardson MD POINT OF CARE TEST ORDERABLES F inal Result Performing Organization Address [facility] Co de Phone Number [facility] [address] [facility] * (ABNORMAL) POC Glucose Monitoring Device (10/16/2017 12:14 AM EST) POC Glucose Monitoring Device 296(H) 70 - 100 mg/dL 10/16/2017 12:15 AM EST [facility] Blood specimen (specimen) 10/16/2017 12:14 AM EST 10/16/2017 12:15 AM EST Result Yuri Richardson MD POINT OF CARE TEST ORDERABLES F inal Result Performing Organization Address [facility] Co de Phone Number [facility] [address] [facility] * (ABNORMAL) POC Glucose Monitoring Device (10/15/2017 8:38 PM EST) POC Glucose Monitoring Device 443(H) 70 - 100 mg/dL 10/15/2017 8:39 PM EST [facility] Blood specimen (specimen) 10/15/2017 8:38 PM EST 10/15/2017 8:39 PM EST Result Yuri Richardson MD POINT OF CARE TEST ORDERABLES F inal Result Performing Organization Address City/[facility]/ZIP Co de Phone Number [facility] [address] [facility]. [address] * (ABNORMAL) POC Glucose Monitoring Device (10/15/2017 8:37 PM EST) POC Glucose Monitoring Device 455(H) 70 - 100 mg/dL 10/15/2017 8:39 PM EST [facility] Blood specimen (specimen) 10/15/2017 8:37 PM EST 10/15/2017 8:39 PM EST Tami Richardson MD POINT OF CARE TEST ORDERABLES F inal Result Performing Organization Address [facility] Co de Phone Number [facility] [address] [facility]. [address] * (ABNORMAL) POC Glucose Monitoring Device (10/15/2017 5:45 PM EST) POC Glucose Monitoring Device 299(H) 70 - 100 mg/dL 10/15/2017 5:57 PM EST [facility] Blood specimen (specimen) 10/15/2017 5:45 PM EST 10/15/2017 5:56 PM EST us Tami Richardson MD POINT OF CARE TEST ORDERABLES F inal Result Performing Organization Address City/[facility] Co de Phone Number [facility] [address] [facility]. [address] * (ABNORMAL) POC Glucose Monitoring Device (10/15/2017 12:21 PM EST) POC Glucose Monitoring Device 148(H) 70 - 100 mg/dL 10/15/2017 12:22 PM EST [facility] Blood specimen (specimen) 10/15/2017 12:21 PM EST 10/15/2017 12:22 PM EST us Tami Richardson MD POINT OF CARE TEST ORDERABLES F inal Result [facility] [address] * (ABNORMAL) POC Glucose Monitoring Device (10/15/2017 8:02 AM EST) POC Glucose Monitoring Device 111(H) 70 - 100 mg/dL 10/15/2017 8:03 AM EST [facility] Blood specimen (specimen) 10/15/2017 8:02 AM EST 10/15/2017 8:03 AM EST Tami Richardson MD POINT OF CARE TEST ORDERABLES F inal Result Performing Organization Address [facility] Co de Phone Number [facility] [address] [facility] * (ABNORMAL) POC Glucose Monitoring Device (10/15/2017 5:54 AM EST) POC Glucose Monitoring Device 112(H) 70 - 100 mg/dL 10/15/2017 5:55 AM EST [facility] Blood specimen (specimen) 10/15/2017 5:54 AM EST 10/15/2017 5:55 AM EST Tami Richardson MD POINT OF CARE TEST ORDERABLES F inal Result Performing Organization Address [facility] de Phone Number [facility] [address] [facility] * (ABNORMAL) Tacrolimus level (10/15/2017 5:53 AM EST) Tacrolimus Lvl 4.4(L) 5.0 - 20.0 ng/mL 10/15/2017 3:00 PM EST [facility] Comment: Detection limit: ??2 ng/mL. ??Performed via chemiluminescent microparticle immunoassay on the [employer] i1000. Whole blood specimen (specimen) 10/15/2017 5:53 AM EST 10/15/2017 6:13 AM EST Shira Feng [facility] BLOOD ORDERABLES Yoselin l Result Performing Organization Address City/[facility] Co de Phone Number [facility] [address] [facility] * (ABNORMAL) Hepatic Function Panel (10/15/2017 3:57 AM EST) Total Bilirubin 0.7 0.0 - 1.5 mg/dL 10/15/2017 4:39 AM EST [facility] Bilirubin, Direct 0.27 0.00 - 0.40 mg/dL 10/15/2017 4:39 AM EST [facility] AST 27 13 - 39 U/L 10/15/2017 4:39 AM EST [facility] ALT 112(H) 7 - 52 U/L 10/15/2017 4:39 AM EST [facility] Alkaline Phosphatase 64 36 - 125 U/L 10/15/2017 4:39 AM EST [facility] Total Protein 4.5(L) 6.4 - 8.9 g/dL 10/15/2017 4:39 AM EST [facility] Albumin 2.3(L) 3.5 - 5.7 g/dL 10/15/2017 4:39 AM EST [facility] Bilirubin, Indirect 0.43 0.00 - 1.10 mg/dL 10/15/2017 4:39 AM EST [facility] Plasma specimen (specimen) 10/15/2017 3:57 AM EST 10/15/2017 4:04 AM EST Shira Feng [facility] BLOOD ORDERABLES Yoselin l Result Performing Organization Address [facility] Co de Phone Number [facility] [address] [facility] * Magnesium (10/15/2017 3:57 AM EST) Magnesium 2.3 1.5 - 2.5 mg/dL 10/15/2017 4:39 AM EST [facility] Plasma specimen (specimen) 10/15/2017 3:57 AM EST 10/15/2017 4:04 AM EST Shira Feng [facility] BLOOD ORDERABLES Yoselin l Result [facility] [address] [facility] * (ABNORMAL) Renal Function Panel w/EGFR (10/15/2017 3:57 AM EST) Sodium 136 133 - 146 mmol/L 10/15/2017 4:39 AM EST [facility] Potassium 3.9 3.5 - 5.3 mmol/L 10/15/2017 4:39 AM [facility] Chloride 106 98 - 110 mmol/L 10/15/2017 4:39 AM [facility] CO2 30 21 - 33 mmol/L 10/15/2017 4:39 AM [facility] Anion Gap 0(L) 3 - 16 mmol/L 10/15/2017 4:39 AM [facility] BUN 57(H) 7 - 25 mg/dL 10/15/2017 4:39 AM [facility] Creatinine 1.45(H) 0.60 - 1.30 mg/dL 10/15/2017 4:39 AM [facility] Glucose 171(H) 70 - 100 mg/dL 10/15/2017 4:39 AM [facility] Calcium 8.0(L) 8.6 - 10.3 mg/dL 10/15/2017 4:39 AM [facility] Phosphorus 2.9 2.1 - 4.7 mg/dL 10/15/2017 4:39 AM [facility] Albumin 2.3(L) 3.5 - 5.7 g/dL 10/15/2017 4:39 AM [facility] Osmolality, Calculated 302 278 - 305 mOsm/kg 10/15/2017 4:39 AM [facility] eGFR AA CKD-EPI 68 See note. 8 4:39 AM [facility] eGFR NONAA CKD-EPI 59 See note. 10/15/2017 4:39 AM [facility] Plasma specimen (specimen) 10/15/2017 3:57 AM EST 10/15/2017 4:04 AM EST [facility] - 10/15/2017 4:39 AM EST As [...] equation to estimate glomerular filtration rate. ??Jennifer Pelt [employer]. 2009:150(9):604-12 Shira Feng [employer] LAB BLOOD ORDERABLES Yoselin l Result [facility] [address] [place], [place] [address] * (ABNORMAL) CBC (10/15/2017 3:57 AM EST) WBC 5.7 3.8 - 10.8 10E3/uL 10/15/2017 4:11 AM EST [facility] RBC 2.06(L) 4.20 - 5.80 10E6/uL 10/15/2017 4:11 AM EST [facility] Hemoglobin 7.3(L) 13.2 - 17.1 g/dL 10/15/2017 4:11 AM EST [facility] Hematocrit 20.6(L) 38.5 - 50.0 % 10/15/2017 4:11 AM EST [facility] MCV 100.2(H) 80.0 - 100.0 fL 10/15/2017 4:11 AM EST [facility] MCH 35.4(H) 27.0 - 33.0 pg 10/15/2017 4:11 AM EST [facility] MCHC 35.3 32.0 - 36.0 g/dL 10/15/2017 4:11 AM EST [facility] RDW 18.8(H) 11.0 - 15.0 % 10/15/2017 4:11 AM EST [facility] Platelets 79(L) 140 - 400 10E3/uL 10/15/2017 4:11 AM EST [facility] MPV 9.8 7.5 - 11.5 fL 10/15/2017 4:11 AM EST [facility] Whole blood specimen (specimen) 10/15/2017 3:57 AM EST 10/15/2017 4:04 AM EST Shira Feng [employer] LAB BLOOD ORDERABLES Yoselin l Result [facility] [address] [facility]. [address] * (ABNORMAL) POC Glucose Monitoring Device (10/14/2017 8:05 PM EST) POC Glucose Monitoring Device 354(H) 70 - 100 mg/dL 10/14/2017 8:06 PM EST [facility] Blood specimen (specimen) 10/14/2017 8:05 PM EST 10/14/2017 8:06 PM EST Tami Richardson MD POINT OF CARE TEST ORDERABLES F inal Result Performing Organization Address [facility] Co de Phone Number [facility] [address] [facility]. [address] * (ABNORMAL) POC Glucose Monitoring Device (10/14/2017 5:06 PM EST) POC Glucose Monitoring Device 370(H) 70 - 100 mg/dL 10/14/2017 5:14 PM EST [facility] Blood specimen (specimen) 10/14/2017 5:06 PM EST 10/14/2017 5:14 PM EST Tami Richardson MD POINT OF CARE TEST ORDERABLES F inal Result Performing Organization Address City/[facility]/ZIP Co de Phone Number [facility] [address] [place] [facility]. [address] * (ABNORMAL) POC Glucose Monitoring Device (10/14/2017 12:13 PM EST) POC Glucose Monitoring Device 170(H) 70 - 100 mg/dL 10/14/2017 12:26 PM EST [facility] Blood specimen (specimen) 10/14/2017 12:13 PM EST 10/14/2017 12:25 PM EST Tami Richardson MD POINT OF CARE TEST ORDERABLES F inal Result [facility] [address] * (ABNORMAL) POC Glucose Monitoring Device (10/14/2017 8:04 AM EST) Pathologist [facility] POC Glucose Monitoring Device 181(H) 70 - 100 mg/dL 10/14/2017 8:06 AM EST [facility] Blood specimen (specimen) 10/14/2017 8:04 AM EST 10/14/2017 8:05 AM EST Tami Richardson MD POINT OF CARE TEST ORDERABLES F inal Result [facility] [address] [place] [address] * (ABNORMAL) Tacrolimus level (10/14/2017 6:49 AM EST) Pathologist [facility] Tacrolimus Lvl 4.4(L) 5.0 - 20.0 ng/mL 10/14/2017 3:12 PM EST [facility] Comment: Detection limit: ??2 ng/mL. ??Performed via chemiluminescent microparticle immunoassay on the [employer] i1000. Whole blood specimen (specimen) 10/14/2017 6:49 AM EST 10/14/2017 7:00 AM EST us Shira Feng [facility] LAB BLOOD ORDERABLES Yoselin l Result [facility] [address] [place] [address]. [address] * (ABNORMAL) Hepatic Function Panel (10/14/2017 6:49 AM EST) Pathologist [facility] Total Bilirubin 0.8 0.0 - 1.5 mg/dL 10/14/2017 7:48 AM EST [facility] Bilirubin, Direct 0.21 0.00 - 0.40 mg/dL 10/14/2017 7:48 AM EST [facility] AST 28 13 - 39 U/L 10/14/2017 7:48 AM EST [facility] ALT 111(H) 7 - 52 U/L 10/14/2017 7:48 AM EST [facility] Alkaline Phosphatase 54 36 - 125 U/L 10/14/2017 7:48 AM EST [facility] Total Protein 4.1(L) 6.4 - 8.9 g/dL 10/14/2017 7:48 AM EST [facility] Albumin 2.2(L) 3.5 - 5.7 g/dL 10/14/2017 7:48 AM EST [facility] Bilirubin, Indirect 0.59 0.00 - 1.10 mg/dL 10/14/2017 7:48 AM EST [facility] Plasma specimen (specimen) 10/14/2017 6:49 AM EST 10/14/2017 7:01 AM EST Shira Feng [employer] LAB BLOOD ORDERABLES Yoselin l Result [facility] [address] * Magnesium (10/14/2017 6:49 AM EST) Magnesium 2.3 1.5 - 2.5 mg/dL 10/14/2017 7:48 AM EST [facility] Plasma specimen (specimen) 10/14/2017 6:49 AM EST 10/14/2017 7:01 AM EST Shira Feng [facility] BLOOD ORDERABLES Yoselin l Result [facility] [address] * (ABNORMAL) Renal Function Panel w/EGFR (10/14/2017 6:49 AM EST) Sodium 136 133 - 146 mmol/L 10/14/2017 7:48 AM EST [facility] Potassium 4.1 3.5 - 5.3 mmol/L 10/14/2017 7:48 AM EST [facility] Chloride 104 98 - 110 mmol/L 10/14/2017 7:48 AM EST [facility] CO2 30 21 - 33 mmol/L 10/14/2017 7:48 AM EST [facility] Anion Gap 2(L) 3 - 16 mmol/L 10/14/2017 7:48 AM EST [facility] BUN 59(H) 7 - 25 mg/dL 10/14/2017 7:48 AM EST [facility] Creatinine 1.46(H) 0.60 - 1.30 mg/dL 10/14/2017 7:48 AM EST [facility] Glucose 212(H) 70 - 100 mg/dL 10/14/2017 7:48 AM EST [facility] Calcium 7.7(L) 8.6 - 10.3 mg/dL 10/14/2017 7:48 AM EST [facility] Phosphorus 3.0 2.1 - 4.7 mg/dL 10/14/2017 7:48 AM [facility] Albumin 2.2(L) 3.5 - 5.7 g/dL 10/14/2017 7:48 AM EST [facility] Osmolality, Calculated 305 278 - 305 mOsm/kg 10/14/2017 7:48 AM EST [facility] eGFR AA CKD-EPI 67 See note. 8 7:48 AM EST [facility] eGFR NONAA CKD-EPI 58 See note. 10/14/2017 7:48 AM [facility] Plasma specimen (specimen) 10/14/2017 6:49 AM EST 10/14/2017 7:01 AM EST [facility] - 10/14/2017 7:48 AM EST As [...] equation to estimate glomerular filtration rate. ??Jennifer Pelt [employer]. 2009:150(9):604-12 Shira Feng [facility] BLOOD ORDERABLES Yoselin l Result [facility] [address] [place] [address], [facility] * (ABNORMAL) POC Glucose Monitoring Device (10/14/2017 6:28 AM EST) [facility] POC Glucose Monitoring Device 219(H) 70 - 100 mg/dL 10/14/2017 6:40 AM EST [facility] Blood specimen (specimen) 10/14/2017 6:28 AM EST 10/14/2017 6:40 AM EST Tami Richardson MD POINT OF CARE TEST ORDERABLES F inal Result [facility] [address] [place], [place] [address] * (ABNORMAL) CBC (10/14/2017 6:00 AM EST) [facility] WBC 5.4 3.8 - 10.8 10E3/uL 10/14/2017 6:05 AM [facility] RBC 1.97(L) 4.20 - 5.80 10E6/uL 10/14/2017 6:05 AM [facility] Hemoglobin 6.9(L) 13.2 - 17.1 g/dL 10/14/2017 6:05 AM [facility] Hematocrit 19.6(L) 38.5 - 50.0 % 10/14/2017 6:05 AM [facility] MCV 99.9 80.0 - 100.0 fL 10/14/2017 6:05 AM [facility] MCH 35.3(H) 27.0 - 33.0 pg 10/14/2017 6:05 AM [facility] MCHC 35.3 32.0 - 36.0 g/dL 10/14/2017 6:05 AM [facility] RDW 18.8(H) 11.0 - 15.0 % 10/14/2017 6:05 AM [facility] Platelets 54(L) 140 - 400 10E3/uL 10/14/2017 6:05 AM [facility] MPV 11.0 7.5 - 11.5 fL 10/14/2017 6:05 AM [facility] Whole blood specimen (specimen) 10/14/2017 6:00 AM EST 10/14/2017 5:53 AM EST Shira Feng [employer] LAB BLOOD ORDERABLES Yoselin l Result Performing Organization Address [facility]/ZIP Co de Phone Number [facility] [address] * Toxoplasma gondii, DNA, Qual, PCR (10/14/2017 4:45 AM EST) Toxoplasma gondii DNA, WB Negative 10/17/2017 3:45 PM EST [facility] Comment: Testing performed by [facility], [address] [place] [address]. This test(s) was developed and its performance characteristics determined and validated by the Department of Pathology and Laboratory Medicine at [facility]. ??It has not been cleared or [...] 10/17/2017 3:45 PM EST Comment:S Shira Feng [facility] BODY FLUIDS AND STOOLS OR DERABLES Final Result Performing Organization Address [facility] Co de Phone Number [facility] [address] [facility]. [address] * LAB (10/14/2017 12:00 AM EST) Scanning [employer] NURSING INFORMATIONAL/COMMUNICAT ION ORDERABLES Final Result * (ABNORMAL) POC Glucose Monitoring Device (10/13/2017 8:29 PM EST) POC Glucose Monitoring Device 293(H) 70 - 100 mg/dL 10/13/2017 8:30 PM EST [facility] Blood specimen (specimen) 10/13/2017 8:29 PM EST 10/13/2017 8:30 PM EST us Tami Richardson MD POINT OF CARE TEST ORDERABLES F inal Result Performing Organization Address [facility] Co de Phone Number [facility] [address] [facility]. [address] * (ABNORMAL) POC Glucose Monitoring Device (10/13/2017 6:40 PM EST) POC Glucose Monitoring Device 233(H) 70 - 100 mg/dL 10/13/2017 6:42 PM EST [facility] Blood specimen (specimen) 10/13/2017 6:40 PM EST 10/13/2017 6:42 PM EST us Tami Richardson MD POINT OF CARE TEST ORDERABLES F inal Result Performing Organization Address [facility] Co de Phone Number [facility] [address] [facility]. [address] * (ABNORMAL) POC Glucose Monitoring Device (10/13/2017 2:58 PM EST) POC Glucose Monitoring Device 186(H) 70 - 100 mg/dL 10/13/2017 3:08 PM EST [facility] Blood specimen (specimen) 10/13/2017 2:58 PM EST 10/13/2017 3:08 PM EST us Tami Richardson MD POINT OF CARE TEST ORDERABLES F inal Result Performing Organization Address [facility] Co de Phone Number [facility] [address] [facility]. [address] * US Duplex [id number] Comp (10/13/2017 9:25 AM EST) Anatomical Region [...] EST EXAM: US ABDOMEN COMPLETE, US DUPLEX [id number] COMPLETE performed on 10/13/2017 10:13 AM EST [...] 10/13/2017 EXAM: US ABDOMEN COMPLETE, US DUPLEX [id number] COMPLETE performedon 10/13/2017 10:13 AM EST INDICATION: [...] 10/13/2017 11:55 AM EST Karishma Loaiza MD [facility] US ORDERABLES Yoselin l Result * US Abdomen Complete (10/13/2017 9:25 [...] EST EXAM: US ABDOMEN COMPLETE, US DUPLEX [id number] COMPLETE performed on 10/13/2017 10:13 AM EST [...] 10/13/2017 EXAM: US ABDOMEN COMPLETE, US DUPLEX [id number] COMPLETE performedon 10/13/2017 10:13 AM EST INDICATION: [...] 10/13/2017 11:55 AM EST Karishma Loaiza MD [facility] US ORDERABLES Yoselin l Result * (ABNORMAL) POC Glucose Monitoring Device (10/13/2017 8:05 AM EST) POC Glucose Monitoring Device 263(H) 70 - 100 mg/dL 10/13/2017 8:06 AM EST [facility] Blood specimen (specimen) 10/13/2017 8:05 AM EST 10/13/2017 8:06 AM EST Tami Richardson MD POINT OF CARE TEST ORDERABLES F inal Result Performing Organization Address [facility] Co de Phone Number [facility] [address] * RACHAEL RHYTHM STRIP - SCAN (10/13/2017 7:32 AM EST) us [employer]anning [employer] SCAN DOCS - NO RESULTS Final Res ult * (ABNORMAL) POC Glucose Monitoring Device (10/13/2017 6:19 AM EST) POC Glucose Monitoring Device 273(H) 70 - 100 mg/dL 10/13/2017 6:23 AM EST [facility] Blood specimen (specimen) 10/13/2017 6:19 AM EST 10/13/2017 6:23 AM EST Tami Richardson MD POINT OF CARE TEST ORDERABLES F inal Result Performing Organization Address [facility] Co de Phone Number [facility] [address] * (ABNORMAL) Tacrolimus level (10/13/2017 5:26 AM EST) Tacrolimus Lvl 3.0(L) 5.0 - 20.0 ng/mL 10/13/2017 11:02 AM EST [facility] Comment: Detection limit: ??2 ng/mL. ??Performed via chemiluminescent microparticle immunoassay on the [employer] i1000. Whole blood specimen (specimen) 10/13/2017 5:26 AM EST 10/13/2017 6:21 AM EST Shira Feng [facility] BLOOD ORDERABLES Yoselin l Result Performing Organization Address City/[facility] Co de Phone Number [facility] [address] * (ABNORMAL) Hepatic Function Panel (10/13/2017 5:26 AM EST) Total Bilirubin 0.7 0.0 - 1.5 mg/dL 10/13/2017 6:07 AM EST [facility] Bilirubin, Direct 0.29 0.00 - 0.40 mg/dL 10/13/2017 6:07 AM EST [facility] AST 16 13 - 39 U/L 10/13/2017 6:07 AM EST [facility] ALT 122(H) 7 - 52 U/L 10/13/2017 6:07 AM EST [facility] Alkaline Phosphatase 51 36 - 125 U/L 10/13/2017 6:07 AM EST [facility] Total Protein 4.0(L) 6.4 - 8.9 g/dL 10/13/2017 6:07 AM EST [facility] Albumin 2.2(L) 3.5 - 5.7 g/dL 10/13/2017 6:07 AM EST [facility] Bilirubin, Indirect 0.41 0.00 - 1.10 mg/dL 10/13/2017 6:07 AM EST [facility] Plasma specimen (specimen) 10/13/2017 5:26 AM EST 10/13/2017 5:36 AM EST us Shira Feng [facility] BLOOD ORDERABLES Yoselin l Result [facility] [address] [place] [facility]. [address] * Magnesium (10/13/2017 5:26 AM EST) Magnesium 2.2 1.5 - 2.5 mg/dL 10/13/2017 6:07 AM EST [facility] Plasma specimen (specimen) 10/13/2017 5:26 AM EST 10/13/2017 5:36 AM EST Shira Feng [facility] BLOOD ORDERABLES Yoselin l Result [facility] [address] [place], [place] [address] * (ABNORMAL) Renal Function Panel w/EGFR (10/13/2017 5:26 AM EST) Sodium 139 133 - 146 mmol/L 10/13/2017 6:07 AM EST [facility] Potassium 4.0 3.5 - 5.3 mmol/L 10/13/2017 6:07 AM [facility] Chloride 106 98 - 110 mmol/L 10/13/2017 6:07 AM [facility] CO2 28 21 - 33 mmol/L 10/13/2017 6:07 AM [facility] Anion Gap 5 3 - 16 mmol/L 10/13/2017 6:07 AM [facility] BUN 61(H) 7 - 25 mg/dL 10/13/2017 6:07 AM [facility] Creatinine 1.58(H) 0.60 - 1.30 mg/dL 10/13/2017 6:07 AM [facility] Glucose 285(H) 70 - 100 mg/dL 10/13/2017 6:07 AM [facility] Calcium 7.6(L) 8.6 - 10.3 mg/dL 10/13/2017 6:07 AM [facility] Phosphorus 2.6 2.1 - 4.7 mg/dL 10/13/2017 6:07 AM [facility] Albumin 2.2(L) 3.5 - 5.7 g/dL 10/13/2017 6:07 AM [facility] Osmolality, Calculated 316(H) 278 - 305 mOsm/kg 10/13/2017 6:07 AM [facility] eGFR AA CKD-EPI 61 See note. 8 6:07 AM [facility] eGFR NONAA CKD-EPI 53 See note. 10/13/2017 6:07 AM [facility] Plasma specimen (specimen) 10/13/2017 5:26 AM EST 10/13/2017 5:36 AM EST [facility] - 10/13/2017 6:07 AM EST As [...] equation to estimate glomerular filtration rate. ??Jennifer Pelt [employer]. 2009:150(9):604-12 us Shira Feng [facility] BLOOD ORDERABLES Yoselin l Result [facility] [address] [place] [address], [facility] * (ABNORMAL) CBC (10/13/2017 5:26 AM EST) WBC 6.2 3.8 - 10.8 10E3/uL 10/13/2017 5:51 AM EST [facility] RBC 2.06(L) 4.20 - 5.80 10E6/uL 10/13/2017 5:51 AM EST [facility] Hemoglobin 7.4(L) 13.2 - 17.1 g/dL 10/13/2017 5:51 AM EST [facility] Hematocrit 20.8(L) 38.5 - 50.0 % 10/13/2017 5:51 AM EST [facility] MCV 101.3(H) 80.0 - 100.0 fL 10/13/2017 5:51 AM EST [facility] MCH 36.2(H) 27.0 - 33.0 pg 10/13/2017 5:51 AM EST [facility] MCHC 35.7 32.0 - 36.0 g/dL 10/13/2017 5:51 AM EST [facility] RDW 18.8(H) 11.0 - 15.0 % 10/13/2017 5:51 AM EST [facility] Platelets 38(L) 140 - 400 10E3/uL 10/13/2017 5:51 AM EST [facility] MPV 9.4 7.5 - 11.5 fL 10/13/2017 5:51 AM EST [facility] Whole blood specimen (specimen) 10/13/2017 5:26 AM EST 10/13/2017 5:36 AM EST Shira Feng [facility] BLOOD ORDERABLES Yoselin l Result Performing Organization Address City/[facility]/ZIP Co de Phone Number [facility] [address] [facility]. [address] * (ABNORMAL) POC Glucose Monitoring Device (10/13/2017 12:29 AM EST) POC Glucose Monitoring Device 359(H) 70 - 100 mg/dL 10/13/2017 12:31 AM EST [facility] Blood specimen (specimen) 10/13/2017 12:29 AM EST 10/13/2017 12:31 AM EST Tami Richardson MD POINT OF CARE TEST ORDERABLES F inal Result Performing Organization Address [facility] Co de Phone Number [facility] [address] [facility]. [address] * (ABNORMAL) POC Glucose Monitoring Device (10/12/2017 7:56 PM EST) POC Glucose Monitoring Device 362(H) 70 - 100 mg/dL 10/12/2017 7:57 PM EST [facility] Blood specimen (specimen) 10/12/2017 7:56 PM EST 10/12/2017 7:57 PM EST Tami Richardson MD POINT OF CARE TEST ORDERABLES F inal Result Performing Organization Address City/[facility]/ZIP Co de Phone Number [facility] [address] [facility] * (ABNORMAL) POC Glucose Monitoring Device (10/12/2017 5:15 PM EST) POC Glucose Monitoring Device 411(H) 70 - 100 mg/dL 10/12/2017 5:16 PM EST [facility] Blood specimen (specimen) 10/12/2017 5:15 PM EST 10/12/2017 5:16 PM EST Tami Richardson MD POINT OF CARE TEST ORDERABLES F inal Result [facility] [address] * (ABNORMAL) POC Glucose Monitoring Device (10/12/2017 4:38 PM EST) POC Glucose Monitoring Device 398(H) 70 - 100 mg/dL 10/12/2017 4:40 PM EST [facility] Blood specimen (specimen) 10/12/2017 4:38 PM EST 10/12/2017 4:40 PM EST Tami Richardson MD POINT OF CARE TEST ORDERABLES F inal Result Performing Organization Address City/[facility]/ZIP Co de Phone Number [facility] [address] [place] [facility]. [address] * (ABNORMAL) POC Glucose Monitoring Device (10/12/2017 12:02 PM EST) POC Glucose Monitoring Device 202(H) 70 - 100 mg/dL 10/12/2017 12:04 PM EST [facility] Blood specimen (specimen) 10/12/2017 12:02 PM EST 10/12/2017 12:04 PM EST us Tami Richardson MD POINT OF CARE TEST ORDERABLES F inal Result Performing Organization Address City/[facility]/ZIP Co de Phone Number [facility] [address] [facility]. [address] * (ABNORMAL) POC Glucose Monitoring Device (10/12/2017 10:05 AM EST) POC Glucose Monitoring Device 164(H) 70 - 100 mg/dL 10/12/2017 10:06 AM EST [facility] Blood specimen (specimen) 10/12/2017 10:05 AM EST 10/12/2017 10:06 AM EST us Tami Richardson MD POINT OF CARE TEST ORDERABLES F inal Result [facility] [address] [facility]. [address] * (ABNORMAL) POC Glucose Monitoring Device (10/12/2017 9:02 AM EST) POC Glucose Monitoring Device 136(H) 70 - 100 mg/dL 10/12/2017 9:03 AM EST [facility] Blood specimen (specimen) 10/12/2017 9:02 AM EST 10/12/2017 9:03 AM EST us Tami Richardson MD POINT OF CARE TEST ORDERABLES F inal Result [facility] [address] [facility]. [address] * (ABNORMAL) POC Glucose Monitoring Device (10/12/2017 7:57 AM EST) POC Glucose Monitoring Device 139(H) 70 - 100 mg/dL 10/12/2017 7:58 AM EST [facility] Blood specimen (specimen) 10/12/2017 7:57 AM EST 10/12/2017 7:58 AM EST us Tami Richardson MD POINT OF CARE TEST ORDERABLES F inal Result Performing Organization Address City/[facility] Co de Phone Number [facility] [address] [facility] * (ABNORMAL) POC Glucose Monitoring Device (10/12/2017 7:14 AM EST) POC Glucose Monitoring Device 122(H) 70 - 100 mg/dL 10/12/2017 7:25 AM EST [facility] Blood specimen (specimen) 10/12/2017 7:14 AM EST 10/12/2017 7:25 AM EST us Tami Richardson MD POINT OF CARE TEST ORDERABLES F inal Result Performing Organization Address City/[facility]/ZIP Co de Phone Number [facility] [address] [facility]. [address] * (ABNORMAL) POC Glucose Monitoring Device (10/12/2017 6:46 AM EST) POC Glucose Monitoring Device 105(H) 70 - 100 mg/dL 10/12/2017 6:57 AM EST [facility] Blood specimen (specimen) 10/12/2017 6:46 AM EST 10/12/2017 6:57 AM EST Tami Richardson MD POINT OF CARE TEST ORDERABLES F inal Result Performing Organization Address City/[facility]/ZIP Co de Phone Number [facility] [address] [facility] * POC Glucose Monitoring Device (10/12/2017 6:28 AM EST) POC Glucose Monitoring Device 96 70 - 100 mg/dL 10/12/2017 6:30 AM EST [facility] Blood specimen (specimen) 10/12/2017 6:28 AM EST 10/12/2017 6:30 AM EST Tami Richardson MD POINT OF CARE TEST ORDERABLES F inal Result Performing Organization Address [facility] de Phone Number [facility] [address] [facility] * X-ray Portable Chest (10/12/2017 6:19 [...] of the diaphragm and extends down the [id number]. The lung volumes are low. Bibasilar airspace [...] level of the diaphragm and extends down [id number]. The lung volumes are low. Bibasilar airspace [...] - 100 mg/dL 10/12/2017 4:22 AM EST [facility] Blood specimen (specimen) 10/12/2017 4:20 AM EST 10/12/2017 4:22 AM EST us Tami Richardson MD POINT OF CARE TEST ORDERABLES F inal Result [facility] [address] * (ABNORMAL) POC Glucose Monitoring Device (10/12/2017 3:11 AM EST) POC Glucose Monitoring Device 129(H) 70 - 100 mg/dL 10/12/2017 3:13 AM EST [facility] Blood specimen (specimen) 10/12/2017 3:11 AM EST 10/12/2017 3:13 AM EST us Tami Richarsdon MD POINT OF CARE TEST ORDERABLES F inal Result Performing Organization Address [facility]/ZIP Co de Phone Number [facility] [address] * (ABNORMAL) POC Glucose Monitoring Device (10/12/2017 2:13 AM EST) POC Glucose Monitoring Device 136(H) 70 - 100 mg/dL 10/12/2017 2:16 AM EST [facility] Blood specimen (specimen) 10/12/2017 2:13 AM EST 10/12/2017 2:16 AM EST Tami Richardson MD POINT OF CARE TEST ORDERABLES F inal Result Performing Organization Address [facility] Co de Phone Number [facility] [address] * Ammonia (10/12/2017 1:10 AM EST) Ammonia 68 27 - 90 ug/dL 10/12/2017 2:46 AM EST [facility] Plasma specimen (specimen) 10/12/2017 1:10 AM EST 10/12/2017 1:15 AM EST Tami Richardson MD LAB BLOOD ORDERABLES Final Resu lt Performing Organization Address [facility] Co de Phone Number [facility] [address] [facility] * (ABNORMAL) Hepatic Function Panel (10/12/2017 1:10 AM EST) Total Bilirubin 0.8 0.0 - 1.5 mg/dL 10/12/2017 1:47 AM EST [facility] Bilirubin, Direct 0.31 0.00 - 0.40 mg/dL 10/12/2017 1:47 AM EST [facility] AST 22 13 - 39 U/L 10/12/2017 1:47 AM EST [facility] ALT 181(H) 7 - 52 U/L 10/12/2017 1:47 AM EST [facility] Alkaline Phosphatase 48 36 - 125 U/L 10/12/2017 1:47 AM EST [facility] Total Protein 4.0(L) 6.4 - 8.9 g/dL 10/12/2017 1:47 AM EST [facility] Albumin 2.1(L) 3.5 - 5.7 g/dL 10/12/2017 1:47 AM EST [facility] Bilirubin, Indirect 0.49 0.00 - 1.10 mg/dL 10/12/2017 1:47 AM EST [facility] Plasma specimen (specimen) 10/12/2017 1:10 AM EST 10/12/2017 1:20 AM EST Shira Tiffanie Feng [employer] LAB BLOOD ORDERABLES Yoselin l Result [facility] [address] [facility]. [address] * Magnesium (10/12/2017 1:10 AM EST) Magnesium 2.1 1.5 - 2.5 mg/dL 10/12/2017 1:47 AM EST [facility] Plasma specimen (specimen) 10/12/2017 1:10 AM EST 10/12/2017 1:20 AM EST Shira Feng [facility] LAB BLOOD ORDERABLES Yoselin l Result Performing Organization Address City/[facility]/ZIP Co de Phone Number THE [facility] [address] * (ABNORMAL) Renal Function Panel w/EGFR (10/12/2017 1:10 AM EST) Sodium 143 133 - 146 mmol/L 10/12/2017 1:47 AM EST [facility] Potassium 3.8 3.5 - 5.3 mmol/L 10/12/2017 1:47 AM EST [facility] Chloride 113(H) 98 - 110 mmol/L 10/12/2017 1:47 AM EST [facility] CO2 25 21 - 33 mmol/L 10/12/2017 1:47 AM EST [facility] Anion Gap 5 3 - 16 mmol/L 10/12/2017 1:47 AM EST [facility] BUN 54(H) 7 - 25 mg/dL 10/12/2017 1:47 AM EST [facility] Creatinine 1.59(H) 0.60 - 1.30 mg/dL 10/12/2017 1:47 AM EST [facility] Glucose 159(H) 70 - 100 mg/dL 10/12/2017 1:47 AM [facility] Calcium 7.5(L) 8.6 - 10.3 mg/dL 10/12/2017 1:47 AM EST [facility] Phosphorus 3.1 2.1 - 4.7 mg/dL 10/12/2017 1:47 AM [facility] Albumin 2.1(L) 3.5 - 5.7 g/dL 10/12/2017 1:47 AM [facility] Osmolality, Calculated 314(H) 278 - 305 mOsm/kg 10/12/2017 1:47 AM [facility] eGFR AA CKD-EPI 61 See note. 8 1:47 AM [facility] eGFR NONAA CKD-EPI 52 See note. 10/12/2017 1:47 AM [facility] Plasma specimen (specimen) 10/12/2017 1:10 AM EST 10/12/2017 1:20 AM EST Narrative [facility] - 10/12/2017 1:47 AM EST As [...] equation to estimate glomerular filtration rate. ??Jennifer Pelt [employer] [employer]. 2009:150(9):604-12 us Shira Feng [employer] LAB BLOOD ORDERABLES Yoselin margaret Result [facility] [address] [facility] [place] [address], [facility] * (ABNORMAL) CBC (10/12/2017 1:10 AM EST) WBC 9.3 3.8 - 10.8 10E3/uL 10/12/2017 1:30 AM EST [facility] RBC 2.23(L) 4.20 - 5.80 10E6/uL 10/12/2017 1:30 AM [facility] Hemoglobin 8.1(L) 13.2 - 17.1 g/dL 10/12/2017 1:30 AM EST [facility] Hematocrit 22.7(L) 38.5 - 50.0 % 10/12/2017 1:30 AM [facility] MCV 101.7(H) 80.0 - 100.0 fL 10/12/2017 1:30 AM [facility] MCH 36.2(H) 27.0 - 33.0 pg 10/12/2017 1:30 AM [facility] MCHC 35.6 32.0 - 36.0 g/dL 10/12/2017 1:30 AM [facility] RDW 19.2(H) 11.0 - 15.0 % 10/12/2017 1:30 AM [facility] Platelets 40(L) 140 - 400 10E3/uL 10/12/2017 1:30 AM [facility] MPV 9.1 7.5 - 11.5 fL 10/12/2017 1:30 AM [facility] Whole blood specimen (specimen) 10/12/2017 1:10 AM EST 10/12/2017 1:14 AM EST us Shira Feng [facility] BLOOD ORDERABLES Yoselin l Result Performing Organization Address City/State/[facility] Co de Phone Number [facility] [address] * (ABNORMAL) Transplant Monitor Panel (10/12/2017 1:10 AM EST) CD19 Abs 190 24 - 683 Cells/uL 10/12/2017 8:41 AM [facility] CD19 % B Cell 78.5(H) 1.0 - 28.0 % 10/12/2017 8:41 AM EST [facility] CD3 Abs 31(L) 870 - 2,532 Cells/uL 10/12/2017 8:41 AM [facility] CD3 % 12.3(L) 56.0 - 89.0 % 10/12/2017 8:41 AM EST [facility] Whole blood specimen (specimen) 10/12/2017 1:10 AM EST 10/12/2017 1:15 AM EST Narrative [facility] - 10/12/2017 8:41 AM EST This assay has been modified from the marking devices assembler's specifications and has been validated with performance characteristics determined by [facility] in accordance with federal regulations under the Clinical Laboratory Act Amendment of 1988. The modification has not been approved by the FDA which has determined that such approval is not necessary. The test is for clinical purposes and should not be regarded as investigational or for research use. Shira Feng [facility] BLOOD ORDERABLES Yoselin l Result Performing Organization Address [facility] Co de Phone Number [facility] [address] * (ABNORMAL) POC Glucose Monitoring Device (10/12/2017 1:04 AM EST) POC Glucose Monitoring Device 155(H) 70 - 100 mg/dL 10/12/2017 1:06 AM EST [facility] Blood specimen (specimen) 10/12/2017 1:04 AM EST 10/12/2017 1:05 AM EST Tami Richardson MD POINT OF CARE TEST ORDERABLES F inal Result Performing Organization Address [facility] de Phone Number [facility] [address] [facility] * (ABNORMAL) POC Glucose Monitoring Device (10/12/2017 12:16 AM EST) POC Glucose Monitoring Device 165(H) 70 - 100 mg/dL 10/12/2017 12:20 AM EST [facility] Blood specimen (specimen) 10/12/2017 12:16 AM EST 10/12/2017 12:20 AM EST Tami Richardson MD POINT OF CARE TEST ORDERABLES F inal Result Performing Organization Address [facility] Co de Phone Number [facility] [address] * (ABNORMAL) POC Glucose Monitoring Device (10/11/2017 11:06 PM EST) POC Glucose Monitoring Device 174(H) 70 - 100 mg/dL 10/11/2017 11:08 PM EST [facility] Blood specimen (specimen) 10/11/2017 11:06 PM EST 10/11/2017 11:07 PM EST Tami Richardson MD POINT OF CARE TEST ORDERABLES F inal Result Performing Organization Address [facility]/ZIP Co de Phone Number [facility] [address] [place] [facility]. [address] * (ABNORMAL) POC Glucose Monitoring Device (10/11/2017 10:14 PM EST) POC Glucose Monitoring Device 193(H) 70 - 100 mg/dL 10/11/2017 10:17 PM EST [facility] Blood specimen (specimen) 10/11/2017 10:14 PM EST 10/11/2017 10:17 PM EST us Tami Richardson MD POINT OF CARE TEST ORDERABLES F inal Result Performing Organization Address [facility]/ZIP Co de Phone Number [facility] [address] [place] [facility]. [address] * (ABNORMAL) POC Glucose Monitoring Device (10/11/2017 9:14 PM EST) POC Glucose Monitoring Device 186(H) 70 - 100 mg/dL 10/11/2017 9:16 PM EST [facility] Blood specimen (specimen) 10/11/2017 9:14 PM EST 10/11/2017 9:16 PM EST us Tami Richardson MD POINT OF CARE TEST ORDERABLES F inal Result Performing Organization Address City/[facility]/ZIP Co de Phone Number [facility] [address] [place] [facility]. [address] * (ABNORMAL) POC Glucose Monitoring Device (10/11/2017 8:28 PM EST) POC Glucose Monitoring Device 168(H) 70 - 100 mg/dL 10/11/2017 8:29 PM EST [facility] Blood specimen (specimen) 10/11/2017 8:28 PM EST 10/11/2017 8:29 PM EST Tami Richardson MD POINT OF CARE TEST ORDERABLES F inal Result [facility] [address] [facility] * (ABNORMAL) POC Glucose Monitoring Device (10/11/2017 7:08 PM EST) POC Glucose Monitoring Device 185(H) 70 - 100 mg/dL 10/11/2017 7:09 PM EST [facility] Blood specimen (specimen) 10/11/2017 7:08 PM EST 10/11/2017 7:08 PM EST us Tami Richardson MD POINT OF CARE TEST ORDERABLES F inal Result Performing Organization Address City/[facility]/ZIP Co de Phone Number [facility] [address] [facility] * (ABNORMAL) POC Glucose Monitoring Device (10/11/2017 5:52 PM EST) POC Glucose Monitoring Device 219(H) 70 - 100 mg/dL 10/11/2017 5:53 PM EST [facility] Blood specimen (specimen) 10/11/2017 5:52 PM EST 10/11/2017 5:53 PM EST Tami Richardson MD POINT OF CARE TEST ORDERABLES F inal Result Performing Organization Address City/[facility]/ZIP Co de Phone Number [facility] [address] [facility] * (ABNORMAL) POC Glucose Monitoring Device (10/11/2017 4:42 PM EST) POC Glucose Monitoring Device 235(H) 70 - 100 mg/dL 10/11/2017 4:43 PM EST [facility] Blood specimen (specimen) 10/11/2017 4:42 PM EST 10/11/2017 4:43 PM EST Tami Richardson MD POINT OF CARE TEST ORDERABLES F inal Result Performing Organization Address City/[facility]/ZIP Co de Phone Number [facility] [address] * (ABNORMAL) POC Glucose Monitoring Device (10/11/2017 3:01 PM EST) POC Glucose Monitoring Device 195(H) 70 - 100 mg/dL 10/11/2017 3:02 PM EST [facility] Blood specimen (specimen) 10/11/2017 3:01 PM EST 10/11/2017 3:02 PM EST Tami Richardson MD POINT OF CARE TEST ORDERABLES F inal Result Performing Organization Address [facility] Co de Phone Number [facility] [address] * (ABNORMAL) CBC (10/11/2017 2:08 PM EST) Pathologist [facility] WBC 10.5 3.8 - 10.8 10E3/uL 10/11/2017 2:30 PM EST [facility] RBC 2.54(L) 4.20 - 5.80 10E6/uL 10/11/2017 2:30 PM EST [facility] Hemoglobin 9.3(L) 13.2 - 17.1 g/dL 10/11/2017 2:30 PM EST [facility] Hematocrit 25.9(L) 38.5 - 50.0 % 10/11/2017 2:30 PM EST [facility] MCV 102.0(H) 80.0 - 100.0 fL 10/11/2017 2:30 PM EST [facility] MCH 36.5(H) 27.0 - 33.0 pg 10/11/2017 2:30 PM EST [facility] MCHC 35.8 32.0 - 36.0 g/dL 10/11/2017 2:30 PM EST [facility] RDW 19.7(H) 11.0 - 15.0 % 10/11/2017 2:30 PM EST [facility] Platelets 41(L) 140 - 400 10E3/uL 10/11/2017 2:30 PM EST [facility] MPV 9.7 7.5 - 11.5 fL 10/11/2017 2:30 PM EST [facility] Whole blood specimen (specimen) 10/11/2017 2:08 PM EST 10/11/2017 2:11 PM EST Sylvain Soni MD LAB BLOOD ORDERABLES Final Re sult Performing Organization Address [facility] Co de Phone Number [facility] [address] [facility] * (ABNORMAL) POC Glucose Monitoring Device (10/11/2017 2:01 PM EST) POC Glucose Monitoring Device 207(H) 70 - 100 mg/dL 10/11/2017 2:03 PM EST [facility] Blood specimen (specimen) 10/11/2017 2:01 PM EST 10/11/2017 2:03 PM EST Tami Richardson MD POINT OF CARE TEST ORDERABLES F inal Result Performing Organization Address [facility] Co de Phone Number [facility] [address] [facility] * (ABNORMAL) POC Glucose Monitoring Device (10/11/2017 1:00 PM EST) POC Glucose Monitoring Device 234(H) 70 - 100 mg/dL 10/11/2017 1:01 PM EST [facility] Blood specimen (specimen) 10/11/2017 1:00 PM EST 10/11/2017 1:01 PM EST us Tami Richardson MD POINT OF CARE TEST ORDERABLES F inal Result Performing Organization Address City/[facility]/ZIP Co de Phone Number [facility] [address] [facility] * (ABNORMAL) POC Glucose Monitoring Device (10/11/2017 12:07 PM EST) POC Glucose Monitoring Device 257(H) 70 - 100 mg/dL 10/11/2017 12:08 PM EST [facility] Blood specimen (specimen) 10/11/2017 12:07 PM EST 10/11/2017 12:08 PM EST Tami Richardson MD POINT OF CARE TEST ORDERABLES F inal Result Performing Organization Address City/[facility]/ZIP Co de Phone Number [facility] [address] [place] [facility]. [address] * (ABNORMAL) POC Glucose Monitoring Device (10/11/2017 10:02 AM EST) POC Glucose Monitoring Device 151(H) 70 - 100 mg/dL 10/11/2017 10:04 AM EST [facility] Blood specimen (specimen) 10/11/2017 10:02 AM EST 10/11/2017 10:03 AM EST us Tami Richardson MD POINT OF CARE TEST ORDERABLES F inal Result Performing Organization Address [facility] Co de Phone Number [facility] [address] [facility] * (ABNORMAL) POC Glucose Monitoring Device (10/11/2017 7:58 AM EST) POC Glucose Monitoring Device 145(H) 70 - 100 mg/dL 10/11/2017 8:00 AM EST [facility] Blood specimen (specimen) 10/11/2017 7:58 AM EST 10/11/2017 7:59 AM EST us Tami Richardson MD POINT OF CARE TEST ORDERABLES F inal Result Performing Organization Address City/[facility]/ZIP Co de Phone Number [facility] [address] [place] [facility]. [address] * (ABNORMAL) POC Glucose Monitoring Device (10/11/2017 6:50 AM EST) POC Glucose Monitoring Device 142(H) 70 - 100 mg/dL 10/11/2017 6:53 AM EST [facility] Blood specimen (specimen) 10/11/2017 6:50 AM EST 10/11/2017 6:52 AM EST us Tami Richardson MD POINT OF CARE TEST ORDERABLES F inal Result [facility] [address] [place] [address], [facility] * X-ray Portable Chest (10/11/2017 6:26 AM EST) Anatomical Region Laterality Modality Chest Radiographic Sobia ging 10/11/2017 5:56 AM EST Impressions 10/11/2017 6:49 AM EST IMPRESSION: Interval removal of the [place] catheter, ET tube, and the NG tube. [...] been interval removal of right IJ approach [place] catheter, the endotracheal tube, and the NG tube. Right IJ approach sheath remains terminating in the SVC. The enteric feeding tube courses below the level of the diaphragm and extends beyond the [id number]. The lung volumes are low. The cardiomediastinal [...] been interval removal of right IJ approach [place] catheter,the endotracheal tube, and the NG tube. Right IJ approach sheath remainsterminating in the SVC. The enteric feeding tube courses below the levelof the diaphragm and extends beyond the [id number]. The lung volumes are low. The cardiomediastinal contour is stable. Thereis interval increase in bibasilar patchy airspace opacities, right greaterthan left. There is no large pleural effusion or evidence of apneumothorax. IMPRESSION: Interval removal of the [place] catheter, ET tube, and the NG tube. Increased bibasilar airspace disease, right greater than left. Approved by Fide Paulino on 10/11/2017 6:42 AM EST I have personally reviewed the images and I agree with this report. Report Verified by: ANDERSON GARRISON M.D. at 10/11/2017 6:49 AM EST Ivett Banerjee MD IM DIAGNOSTIC IMAGI NG ORDERABLES Final Result * (ABNORMAL) Transplant Monitor Panel (10/11/2017 4:23 AM EST) CD19 Abs 218 24 - 683 Cells/uL 10/11/2017 8:45 AM EST [facility] CD19 % B Cell 89.6(H) 1.0 - 28.0 % 10/11/2017 8:45 AM EST [facility] CD3 Abs 8(L) 870 - 2,532 Cells/uL 10/11/2017 8:45 AM EST [facility] CD3 % 3.1(L) 56.0 - 89.0 % 10/11/2017 8:45 AM EST [facility] Whole blood specimen (specimen) 10/11/2017 4:23 AM EST 10/11/2017 7:10 AM EST Narrative [facility] - 10/11/2017 8:45 AM EST This assay has been modified from the marking devices assembler's specifications and has been validated with performance characteristics determined by [facility] in accordance with federal regulations under the Clinical Laboratory Act Amendment of 1988. The modification has not been approved by the FDA which has determined that such approval is not necessary. The test is for clinical purposes and should not be regarded as investigational or for research use. Shira Feng CNP LAB BLOOD ORDERABLES Yoselin l Result [facility] [address] [facility] * Magnesium (10/11/2017 4:23 AM EST) Magnesium 2.3 1.5 - 2.5 mg/dL 10/11/2017 5:13 AM EST [facility] Plasma specimen (specimen) 10/11/2017 4:23 AM EST 10/11/2017 4:29 AM EST Karishma Loaiza MD LAB BLOOD ORDERABLES F inal Result Performing Organization Address [facility]/ZIP Co de Phone Number [facility] [address] [facility] * (ABNORMAL) Hepatic Function Panel (10/11/2017 4:23 AM EST) Total Bilirubin 1.0 0.0 - 1.5 mg/dL 10/11/2017 5:13 AM EST [facility] Bilirubin, Direct 0.41(H) 0.00 - 0.40 mg/dL 10/11/2017 5:13 AM EST [facility] AST 71(H) 13 - 39 U/L 10/11/2017 5:13 AM EST [facility] ALT 297(H) 7 - 52 U/L 10/11/2017 5:13 AM EST [facility] Alkaline Phosphatase 46 36 - 125 U/L 10/11/2017 5:13 AM EST [facility] Total Protein 4.4(L) 6.4 - 8.9 g/dL 10/11/2017 5:13 AM EST [facility] Albumin 2.4(L) 3.5 - 5.7 g/dL 10/11/2017 5:13 AM EST [facility] Bilirubin, Indirect 0.59 0.00 - 1.10 mg/dL 10/11/2017 5:13 AM EST [facility] Plasma specimen (specimen) 10/11/2017 4:23 AM EST 10/11/2017 4:29 AM EST Karishma Loaiza MD LAB BLOOD ORDERABLES F inal Result [facility] [address] [place] [address], [facility] * (ABNORMAL) Renal Function Panel w/EGFR (10/11/2017 4:23 AM EST) Sodium 142 133 - 146 mmol/L 10/11/2017 5:13 AM EST [facility] Potassium 4.1 3.5 - 5.3 mmol/L 10/11/2017 5:13 AM EST [facility] Chloride 112(H) 98 - 110 mmol/L 10/11/2017 5:13 AM EST [facility] CO2 23 21 - 33 mmol/L 10/11/2017 5:13 AM EST [facility] Anion Gap 7 3 - 16 mmol/L 10/11/2017 5:13 AM EST [facility] BUN 50(H) 7 - 25 mg/dL 10/11/2017 5:13 AM EST [facility] Creatinine 1.69(H) 0.60 - 1.30 mg/dL 10/11/2017 5:13 AM EST [facility] Glucose 148(H) 70 - 100 mg/dL 10/11/2017 5:13 AM EST [facility] Calcium 8.0(L) 8.6 - 10.3 mg/dL 10/11/2017 5:13 AM EST [facility] Phosphorus 4.2 2.1 - 4.7 mg/dL 10/11/2017 5:13 AM EST [facility] Albumin 2.4(L) 3.5 - 5.7 g/dL 10/11/2017 5:13 AM EST [facility] Osmolality, Calculated 310(H) 278 - 305 mOsm/kg 10/11/2017 5:13 AM EST [facility] eGFR AA CKD-EPI 56 See note. 8 5:13 AM EST [facility] eGFR NONAA CKD-EPI 49 See note. 10/11/2017 5:13 AM EST [facility] Plasma specimen (specimen) 10/11/2017 4:23 AM EST 10/11/2017 4:29 AM EST Narrative [facility] - 10/11/2017 5:13 AM EST As [...] equation to estimate glomerular filtration rate. ??Jennifer Pelt [facility]. 2009:150(9):604-12 Karishma Loaiza MD LAB BLOOD ORDERABLES F inal Result [facility] [address] * (ABNORMAL) CBC (10/11/2017 4:23 AM EST) [facility] Signature WBC 9.0 3.8 - 10.8 10E3/uL 10/11/2017 4:36 AM EST [facility] RBC 2.44(L) 4.20 - 5.80 10E6/uL 10/11/2017 4:36 AM EST [facility] Hemoglobin 8.8(L) 13.2 - 17.1 g/dL 10/11/2017 4:36 AM EST [facility] Hematocrit 24.9(L) 38.5 - 50.0 % 10/11/2017 4:36 AM EST [facility] MCV 102.3(H) 80.0 - 100.0 fL 10/11/2017 4:36 AM EST [facility] MCH 36.3(H) 27.0 - 33.0 pg 10/11/2017 4:36 AM EST [facility] MCHC 35.5 32.0 - 36.0 g/dL 10/11/2017 4:36 AM EST [facility] RDW 20.1(H) 11.0 - 15.0 % 10/11/2017 4:36 AM EST [facility] Platelets 38(L) 140 - 400 10E3/uL 10/11/2017 4:36 AM EST [facility] MPV 8.6 7.5 - 11.5 fL 10/11/2017 4:36 AM EST [facility] Whole blood specimen (specimen) 10/11/2017 4:23 AM EST 10/11/2017 4:30 AM EST Karishma Loaiza MD LAB BLOOD ORDERABLES F inal Result [facility] [address] [facility] * (ABNORMAL) POC Glucose Monitoring Device (10/11/2017 4:19 AM EST) POC Glucose Monitoring Device 152(H) 70 - 100 mg/dL 10/11/2017 4:25 AM EST [facility] Blood specimen (specimen) 10/11/2017 4:19 AM EST 10/11/2017 4:25 AM EST Tami Richardson MD POINT OF CARE TEST ORDERABLES F inal Result Performing Organization Address [facility]/ZIP Co de Phone Number [facility] [address] [facility] * (ABNORMAL) POC Glucose Monitoring Device (10/11/2017 2:05 AM EST) POC Glucose Monitoring Device 144(H) 70 - 100 mg/dL 10/11/2017 2:06 AM EST [facility] Blood specimen (specimen) 10/11/2017 2:05 AM EST 10/11/2017 2:06 AM EST Tami Richardson MD POINT OF CARE TEST ORDERABLES F inal Result [facility] [address] [facility] * (ABNORMAL) POC Glucose Monitoring Device (10/11/2017 1:05 AM EST) POC Glucose Monitoring Device 154(H) 70 - 100 mg/dL 10/11/2017 1:08 AM EST [facility] Blood specimen (specimen) 10/11/2017 1:05 AM EST 10/11/2017 1:08 AM EST us Tami Richardson MD POINT OF CARE TEST ORDERABLES F inal Result Performing Organization Address [facility] Co de Phone Number [facility] [address] [facility] * (ABNORMAL) POC Glucose Monitoring Device (10/11/2017 12:04 AM EST) POC Glucose Monitoring Device 180(H) 70 - 100 mg/dL 10/11/2017 12:09 AM EST [facility] Blood specimen (specimen) 10/11/2017 12:04 AM EST 10/11/2017 12:09 AM EST us Tami Richardson MD POINT OF CARE TEST ORDERABLES F inal Result Performing Organization Address [facility] Co de Phone Number [facility] [address] [facility] * (ABNORMAL) POC Glucose Monitoring Device (10/10/2017 11:04 PM EST) POC Glucose Monitoring Device 179(H) 70 - 100 mg/dL 10/10/2017 11:07 PM EST [facility] Blood specimen (specimen) 10/10/2017 11:04 PM EST 10/10/2017 11:07 PM EST us Tami Richardson MD POINT OF CARE TEST ORDERABLES F inal Result Performing Organization Address [facility] Co de Phone Number [facility] [address] [facility]. [address] * (ABNORMAL) POC Glucose Monitoring Device (10/10/2017 9:59 PM EST) POC Glucose Monitoring Device 181(H) 70 - 100 mg/dL 10/10/2017 10:06 PM EST [facility] Blood specimen (specimen) 10/10/2017 9:59 PM EST 10/10/2017 10:05 PM EST Result Yuri Richardson MD POINT OF CARE TEST ORDERABLES F inal Result Performing Organization Address [facility] Co de Phone Number [facility] [address] [place] [address]. [address] * (ABNORMAL) POC Glucose Monitoring Device (10/10/2017 9:00 PM EST) POC Glucose Monitoring Device 186(H) 70 - 100 mg/dL 10/10/2017 9:20 PM EST [facility] Blood specimen (specimen) 10/10/2017 9:00 PM EST 10/10/2017 9:20 PM EST Result Yuri Richardson MD POINT OF CARE TEST ORDERABLES F inal Result Performing Organization Address [facility] Co de Phone Number [facility] [address] [facility]. [address] * (ABNORMAL) POC Glucose Monitoring Device (10/10/2017 8:02 PM EST) POC Glucose Monitoring Device 191(H) 70 - 100 mg/dL 10/10/2017 8:22 PM EST [facility] Blood specimen (specimen) 10/10/2017 8:02 PM EST 10/10/2017 8:22 PM EST Result Yuri Richardson MD POINT OF CARE TEST ORDERABLES F inal Result Performing Organization Address [facility] Co de Phone Number [facility] [address] [place] [address]. [address] * (ABNORMAL) POC Glucose Monitoring Device (10/10/2017 6:01 PM EST) POC Glucose Monitoring Device 143(H) 70 - 100 mg/dL 10/10/2017 6:02 PM EST [facility] Blood specimen (specimen) 10/10/2017 6:01 PM EST 10/10/2017 6:02 PM EST Result Yuri Richardson MD POINT OF CARE TEST ORDERABLES F inal Result [facility] [address] [facility]. [address] * (ABNORMAL) POC Glucose Monitoring Device (10/10/2017 5:08 PM EST) POC Glucose Monitoring Device 150(H) 70 - 100 mg/dL 10/10/2017 5:10 PM EST [facility] Blood specimen (specimen) 10/10/2017 5:08 PM EST 10/10/2017 5:10 PM EST Tami Richardson MD POINT OF CARE TEST ORDERABLES F inal Result Performing Organization Address City/[facility]/ZIP Co de Phone Number [facility] [address] [facility]. [address] * (ABNORMAL) POC Glucose Monitoring Device (10/10/2017 4:03 PM EST) POC Glucose Monitoring Device 162(H) 70 - 100 mg/dL 10/10/2017 4:04 PM EST [facility] Blood specimen (specimen) 10/10/2017 4:03 PM EST 10/10/2017 4:04 PM EST us Tami Richardson MD POINT OF CARE TEST ORDERABLES F inal Result Performing Organization Address City/[facility]/ZIP Co de Phone Number [facility] [address] * (ABNORMAL) POC Glucose Monitoring Device (10/10/2017 3:18 PM EST) POC Glucose Monitoring Device 178(H) 70 - 100 mg/dL 10/10/2017 3:19 PM EST [facility] Blood specimen (specimen) 10/10/2017 3:18 PM EST 10/10/2017 3:18 PM EST us Tami Richardson MD POINT OF CARE TEST ORDERABLES F inal Result [facility] [address] [facility]. [address] * MRI Head WO contrast (10/10/2017 3:00 [...] motion artifact. No diffusion restriction is demonstrated. [place] images nondiagnostic due to motion. The midline [...] by motion artifact. No diffusionrestriction is demonstrated. [place] images nondiagnostic due to motion. The midline [...] NICKERSON M.D. at 10/10/2017 4:01 PM EST us Ivett Banerjee MD IMG MRI ORDERABLES F inal Result * (ABNORMAL) POC Glucose Monitoring Device (10/10/2017 1:05 PM EST) POC Glucose Monitoring Device 193(H) 70 - 100 mg/dL 10/10/2017 1:06 PM EST [facility] Blood specimen (specimen) 10/10/2017 1:05 PM EST 10/10/2017 1:06 PM EST Tami Richardson MD POINT OF CARE TEST ORDERABLES F inal Result [facility] [address] * (ABNORMAL) Protime-INR (10/10/2017 12:53 PM EST) Protime 16.1(H) 11.8 - 14.8 seconds 10/10/2017 1:52 PM EST [facility] Comment:Effective 07/12/2017 , the PT and PTMIX reference range has changed from 11.6 -14.4 sec to 11.8-14.8 sec. INR 1.3(H) 0.9 - 1.1 10/10/2017 1:52 PM EST [facility] Comment: RECOMMENDED THERAPEUTIC RANGES USING INR : ?Stable oral anticoagulant therapy: ? 2.0 - 3.0 ?Mechanical prosthetic heart valve: ? 2.5 - 3.5 ?Recurrent acute myocardial infarction: ? 2.5 - 3.5 Plasma specimen (specimen) 10/10/2017 12:53 PM EST 10/10/2017 1:26 PM EST Karishma Loaiza MD LAB BLOOD ORDERABLES F inal Result Performing Organization Address [facility] Co de Phone Number [facility] [address] [facility] * Magnesium (10/10/2017 12:53 PM EST) Pathologist [facility] Magnesium 2.2 1.5 - 2.5 mg/dL 10/10/2017 2:02 PM EST [facility] Plasma specimen (specimen) 10/10/2017 12:53 PM EST 10/10/2017 1:33 PM EST Karishma Loaiza MD LAB BLOOD ORDERABLES F inal Result Performing Organization Address [facility] de Phone Number [facility] [address] [facility] * (ABNORMAL) Hepatic Function Panel (10/10/2017 12:53 PM EST) Total Bilirubin 1.0 0.0 - 1.5 mg/dL 10/10/2017 2:02 PM EST [facility] Bilirubin, Direct 0.45(H) 0.00 - 0.40 mg/dL 10/10/2017 2:02 PM EST [facility] AST 179(H) 13 - 39 U/L 10/10/2017 2:02 PM EST [facility] ALT 376(H) 7 - 52 U/L 10/10/2017 2:02 PM EST [facility] Alkaline Phosphatase 53 36 - 125 U/L 10/10/2017 2:02 PM EST [facility] Total Protein 4.3(L) 6.4 - 8.9 g/dL 10/10/2017 2:02 PM EST [facility] Albumin 2.2(L) 3.5 - 5.7 g/dL 10/10/2017 2:02 PM EST [facility] Bilirubin, Indirect 0.55 0.00 - 1.10 mg/dL 10/10/2017 2:02 PM EST [facility] Plasma specimen (specimen) 10/10/2017 12:53 PM EST 10/10/2017 1:33 PM EST Karishma Loaiza MD LAB BLOOD ORDERABLES F inal Result [facility] [address] * (ABNORMAL) Renal Function Panel w/EGFR (10/10/2017 12:53 PM EST) Sodium 142 133 - 146 mmol/L 10/10/2017 2:02 PM EST [facility] Potassium 4.4 3.5 - 5.3 mmol/L 10/10/2017 2:02 PM [facility] Chloride 113(H) 98 - 110 mmol/L 10/10/2017 2:02 PM [facility] CO2 22 21 - 33 mmol/L 10/10/2017 2:02 PM [facility] Anion Gap 7 3 - 16 mmol/L 10/10/2017 2:02 PM [facility] BUN 49(H) 7 - 25 mg/dL 10/10/2017 2:02 PM [facility] Creatinine 2.08(H) 0.60 - 1.30 mg/dL 10/10/2017 2:02 PM [facility] Glucose 212(H) 70 - 100 mg/dL 10/10/2017 2:02 PM [facility] Calcium 8.1(L) 8.6 - 10.3 mg/dL 10/10/2017 2:02 PM [facility] Phosphorus 5.0(H) 2.1 - 4.7 mg/dL 10/10/2017 2:02 PM [facility] Albumin 2.2(L) 3.5 - 5.7 g/dL 10/10/2017 2:02 PM [facility] Osmolality, Calculated 313(H) 278 - 305 mOsm/kg 10/10/2017 2:02 PM [facility] eGFR AA CKD-EPI 44 See note. 8 2:02 PM EST [facility] eGFR NONAA CKD-EPI 38 See note. 10/10/2017 2:02 PM EST [facility] Plasma specimen (specimen) 10/10/2017 12:53 PM EST 10/10/2017 1:33 PM EST Narrative [facility] - 10/10/2017 2:02 PM EST As [...] equation to estimate glomerular filtration rate. ??Jennifer Pelt [employer]. 2009:150(9):604-12 Karishma Loaiza MD LAB BLOOD ORDERABLES F inal Result [facility] [address] [place] [address], [facility] * (ABNORMAL) CBC (10/10/2017 12:53 PM EST) WBC 6.9 3.8 - 10.8 10E3/uL 10/10/2017 1:42 PM EST [facility] RBC 2.45(L) 4.20 - 5.80 10E6/uL 10/10/2017 1:42 PM EST [facility] Hemoglobin 8.8(L) 13.2 - 17.1 g/dL 10/10/2017 1:42 PM EST [facility] Hematocrit 25.5(L) 38.5 - 50.0 % 10/10/2017 1:42 PM EST [facility] MCV 104.0(H) 80.0 - 100.0 fL 10/10/2017 1:42 PM EST [facility] MCH 36.0(H) 27.0 - 33.0 pg 10/10/2017 1:42 PM EST [facility] MCHC 34.6 32.0 - 36.0 g/dL 10/10/2017 1:42 PM EST [facility] RDW 20.6(H) 11.0 - 15.0 % 10/10/2017 1:42 PM EST [facility] Platelets 46(L) 140 - 400 10E3/uL 10/10/2017 1:42 PM EST [facility] Comment:Specimen checked for clots. None detected. MPV 9.2 7.5 - 11.5 fL 10/10/2017 1:42 PM EST [facility] Whole blood specimen (specimen) 10/10/2017 12:53 PM EST 10/10/2017 1:26 PM EST Karishma Loaiza MD LAB BLOOD ORDERABLES F inal Result Performing Organization Address City/[facility]/ZIP Co de Phone Number [facility] [address] [facility]. [address] * (ABNORMAL) POC Glucose Monitoring Device (10/10/2017 12:03 PM EST) [facility] POC Glucose Monitoring Device 191(H) 70 - 100 mg/dL 10/10/2017 12:05 PM EST [facility] Blood specimen (specimen) 10/10/2017 12:03 PM EST 10/10/2017 12:05 PM EST Tami Richardson MD POINT OF CARE TEST ORDERABLES F inal Result Performing Organization Address City/[facility]/ZIP Co de Phone Number [facility] [address] [facility] * XR Portable Feeding Tube Check [...] Glucose Monitoring Device (10/10/2017 11:03 AM EST) [facility] POC Glucose Monitoring Device 183(H) 70 - 100 mg/dL 10/10/2017 11:05 AM EST [facility] Blood specimen (specimen) 10/10/2017 11:03 AM EST 10/10/2017 11:05 AM EST Tami Richardson MD POINT OF CARE TEST ORDERABLES F inal Result [facility] [address] * Echo 2D Comp. w/Contrast (TTE) (10/10/2017 10:43 AM EST) 10/10/2017 10:0 8 AM EST Narrative [facility] - 10/10/2017 5:11 PM EST ? * [facility]* ? [address] [facility] ?[place] [address] ?[phone] Transthoracic Echocardiography (Report amended ) Patient: ?Leoncio Rollins MR #: ? [id number] Account: Study Date: 10/10/2017 Gender: ? M Age: ?42 : ?1975 Room: ? 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 Tami Richardson ATTENDING ?? Tami Richardson CONSULTING ??Team, ORDERING ?Bo Frias REFERRING ?? Bo Frias PERFORMING ??Thania Hamilton MD Procedure:ECHO 2D COMPLETE Order:ECHO 2D COMPLETE Accession W/CONTRAST (TTE) ? W/CONTRAST (TTE) ? Number:[id number] ?[id number] Indications: ?Chest Pain, unspecified. PMH: ??S/P [...] specified reference range. Amended Thania Hamilton MD [id number] Procedure Note Thania Hamilton MD - 10/10/2017 * [facility]* [address] [place] [address] Transthoracic Echocardiography (Report amended ) Patient: Leoncio Rollins MR #: [id number] Account: Study Date: 10/10/2017 Gender: M Age: 42 : 1975 Room: [facility] BEATRICE Bernal [facility] ADMITTING Tami Richardson ATTENDING Tami Richardson CONSULTING Team, ORDERING Bo Frias REFERRING Bo Frias PERFORMING Thania Hamilton MD Procedure:ECHO 2D COMPLETE Order:ECHO 2D COMPLETE Accession W/CONTRAST (TTE) W/CONTRAST (TTE) Number:[id number] Indications: Chest Pain, unspecified. PMH: S/P [...] date: 10/10/2017. Study time: 10:08 AM. Location: [facility]. Study Conclusions - Left ventricle: The cavity [...] specified reference range. Amended Thania Hamilton MD [id number] Bo Frias MD CV ECHO ORDERABLES Edited Result - Final [facility] * (ABNORMAL) POC Glucose Monitoring Device (10/10/2017 10:08 AM EST) POC Glucose Monitoring Device 160(H) 70 - 100 mg/dL 10/10/2017 10:10 AM EST [facility] Blood specimen (specimen) 10/10/2017 10:08 AM EST 10/10/2017 10:10 AM EST Tami Richardson MD POINT OF CARE TEST ORDERABLES F inal Result [facility] [address] * (ABNORMAL) Urinalysis w/Rfl Microscop, Rfl Culture (10/10/2017 10:03 AM EST) Color, UA Yellow Yellow,Straw 10/10/2017 10:29 AM EST [facility] Clarity, UA Clear Clear 10/10/2017 10:29 AM [facility] Specific [place], UA 1.028 1.005 - 1.035 10/10/2017 10:29 AM [facility] pH, UA 5.0 5.0 - 8.0 10/10/2017 10:29 AM [facility] Protein, UA 100(A) Negative mg/dL 10/10/2017 10:29 AM [facility] Glucose, UA Negative Negative mg/dL 10/10/2017 10:29 AM [facility] Ketones, UA Negative Negative mg/dL 10/10/2017 10:29 AM [facility] Bilirubin, UA Negative Negative 10/10/2017 10:29 AM [facility] Blood, UA Small(A) Negative 10/10/2017 10:29 AM [facility] Nitrite, UA Negative Negative 10/10/2017 10:29 AM [facility] Urobilinogen, UA <2.0 0.2 - 1.9 mg/dL 10/10/2017 10:29 AM [facility] Leukocyte Esterase, UA Negative Negative 10/10/2017 10:29 AM [facility] Urine specimen (specimen) 10/10/2017 10:03 AM EST 10/10/2017 10:19 AM EST Narrative [facility] - 10/10/2017 10:29 AM EST Microscopic testing not performed when the dipstick is negative for Blood, Leukocyte, Protein, and Nitrite. Urine Culture will not be performed if WBC <= 5, Nitrite negative, Leukocyte negative, and Bacteria less than Few. Shira Feng RETAIL INTERIOR DESIGNER URINE ORDERABLES Final Re sult [facility] [address] * Blood Culture-Peripheral (10/10/2017 10:03 AM EST) Culture Result No Growth After 5 Days [facility] Blood specimen (specimen) BLOOD SPECIMEN / Unknown 10/10/2017 10:03 AM EST 10/10/2017 11:09 AM EST Shira Feng CNP MICROBIOLOGY - GENERAL OR DERABLES Final Result Performing Organization Address [facility] Co de Phone Number [facility] [address] [place] [address]. [address] * Blood Culture-Peripheral (10/10/2017 10:03 AM EST) Culture Result No Growth After 5 Days [facility] Blood specimen (specimen) BLOOD SPECIMEN / Unknown 10/10/2017 10:03 AM EST 10/10/2017 10:22 AM EST Shira Feng CNP MICROBIOLOGY - GENERAL OR DERABLES Final Result Performing Organization Address [facility] Co de Phone Number [facility] [address] [place] [address]. [address] * (ABNORMAL) POC Glucose Monitoring Device (10/10/2017 9:10 AM EST) POC Glucose Monitoring Device 145(H) 70 - 100 mg/dL 10/10/2017 9:12 AM EST [facility] Blood specimen (specimen) 10/10/2017 9:10 AM EST 10/10/2017 9:12 AM EST Tami Richardson MD POINT OF CARE TEST ORDERABLES F inal Result Performing Organization Address City/[facility] Co de Phone Number [facility] [address] [place] [address]. [address] * (ABNORMAL) POC Glucose Monitoring Device (10/10/2017 8:24 AM EST) POC Glucose Monitoring Device 117(H) 70 - 100 mg/dL 10/10/2017 8:26 AM EST [facility] Blood specimen (specimen) 10/10/2017 8:24 AM EST 10/10/2017 8:26 AM EST Tami Richardson MD POINT OF CARE TEST ORDERABLES F inal Result Performing Organization Address [facility]/ZIP Co de Phone Number [facility] [address] [facility] * (ABNORMAL) POC Glucose Monitoring Device (10/10/2017 8:04 AM EST) POC Glucose Monitoring Device 106(H) 70 - 100 mg/dL 10/10/2017 8:06 AM EST [facility] Blood specimen (specimen) 10/10/2017 8:04 AM EST 10/10/2017 8:05 AM EST Tami Richardson MD POINT OF CARE TEST ORDERABLES F inal Result Performing Organization Address [facility] Co de Phone Number [facility] [address] [facility] * RACHAEL RHYTHM STRIP - SCAN (10/10/2017 7:09 AM EST) us Scanning Uchhim SCAN DOCS - NO RESULTS Final Res ult * (ABNORMAL) Troponin I (10/10/2017 6:32 AM EST) Pathologist [facility] Troponin I 0.15(H) 0.00 - 0.03 ng/mL 10/10/2017 7:10 AM EST [facility] Plasma specimen (specimen) 10/10/2017 6:32 AM EST 10/10/2017 6:43 AM EST Tam Neil MD LAB BLOOD ORDERABLES Final Result Performing Organization Address [facility] Co de Phone Number [facility] [address] [facility] * (ABNORMAL) Transplant Monitor Panel (10/10/2017 6:32 AM EST) CD19 Abs 126 24 - 683 Cells/uL 10/10/2017 9:09 AM EST [facility] CD19 % B Cell 88.0(H) 1.0 - 28.0 % 10/10/2017 9:09 AM EST [facility] CD3 Abs 3(L) 870 - 2,532 Cells/uL 10/10/2017 9:09 AM EST [facility] CD3 % 2.3(L) 56.0 - 89.0 % 10/10/2017 9:09 AM EST [facility] Whole blood specimen (specimen) 10/10/2017 6:32 AM EST 10/10/2017 7:16 AM EST [facility] - 10/10/2017 9:09 AM EST This assay has been modified from the marking devices assembler's specifications and has been validated with performance characteristics determined by [facility] in accordance with federal regulations under the Clinical Laboratory Act Amendment of 1988. The modification has not been approved by the FDA which has determined that such approval is not necessary. The test is for clinical purposes and should not be regarded as investigational or for research use. Shira Feng [facility] BLOOD ORDERABLES Yoselin l Result Performing Organization Address City/[facility]/ZIP Co de Phone Number [facility] [address] * (ABNORMAL) POC Glucose Monitoring Device (10/10/2017 5:57 AM EST) POC Glucose Monitoring Device 112(H) 70 - 100 mg/dL 10/10/2017 6:01 AM EST [facility] Blood specimen (specimen) 10/10/2017 5:57 AM EST 10/10/2017 6:00 AM EST Tami Richardson MD POINT OF CARE TEST ORDERABLES F inal Result Performing Organization Address [facility]/ZIP Co de Phone Number [facility] [address] * (ABNORMAL) POC Glucose Monitoring Device (10/10/2017 4:00 AM EST) POC Glucose Monitoring Device 118(H) 70 - 100 mg/dL 10/10/2017 4:02 AM EST [facility] Blood specimen (specimen) 10/10/2017 4:00 AM EST 10/10/2017 4:02 AM EST us Tami Richardson MD POINT OF CARE TEST ORDERABLES F inal Result Performing Organization Address [facility] Co de Phone Number [facility] [address] [place] [address], [facility] * ECG 12 lead (MUSE) (10/10/2017 3:11 AM EST) 10/10/2017 3:11 AM EST Narrative [facility] - 10/10/2017 1:38 PM EST Ventricular Rate: ??105 ??BPM Atrial Rate: ??105 ??BPM P-R Interval: ??140 ??ms QRS Duration: ??98 ??ms QT: ??352 ??ms QTc: ??465 ??ms P Graham: ??26 ??degrees R Graham: ??58 ??degrees T Graham: ??-11 ??degrees Diagnosis Line: ??SINUS TACHYCARDIA ^ CANNOT RULE OUT INFERIOR INFARCT , AGE UNDETERMINED ^ ABNORMAL ECG ^ COMPARED TO THE ECG OF 08-OCT-2017 01:03, ^ MINIMAL CRITERIA FOR INFERIOR INFARCT ARE NOW PRESENT ^ T WAVE INVERSION NOW EVIDENT IN INFERIOR LEADS ^ NONSPECIFIC T WAVE CHANGE NOW EVIDENT IN LATERAL LEADS ^ Confirmed by Carlo PEREZ, PHYLLIS ([facility]) on 10/10/2017 1:38:38 PM us Tam Neil MD ECG ORDERABLES Final Resu lt Performing Organization Address [facility] Co de Phone Number [facility] [address] [facility] [place] [address] * (ABNORMAL) Troponin I (10/10/2017 1:58 AM EST) Troponin I 0.16(H) 0.00 - 0.03 ng/mL 10/10/2017 3:22 AM EST [facility] Comment: RESULTS <0.04: This result is [...] ORDERABLES Final Resu lt Performing Organization Address [facility] Co de Phone Number [facility] [address] * (ABNORMAL) Rapid TEG (10/10/2017 1:58 AM EST) TEG ACT 105.0 86.0 - 118.0 seconds 10/10/2017 3:47 AM EST [facility] Comment:The TEG ACT test par ameter is approved to monitor heparin in adult patients. It has not been approved by the FDA for other uses. TEG R Time 35.0 22 - 44 seconds 10/10/2017 3:47 AM EST [facility] TEG Time 135.0 34 - 138 seconds 10/10/2017 3:47 AM EST [facility] TEG Angle 73.0 64 - 80 degrees 10/10/2017 3:47 AM EST [facility] TEG Max Amplitude 51.5(L) 52 - 71 mm 10/10/2017 3:47 AM EST [facility] TEG Lysis 30 0.0 % 10/10/2017 3:47 AM EST [facility] Whole blood specimen (specimen) 10/10/2017 1:58 AM EST 10/10/2017 2:10 AM EST Ivett Banerjee MD LAB BLOOD ORDERABLES Final Result Performing Organization Address [facility] Co de Phone Number [facility] [address] [facility] * Lactic Acid, Routine (10/10/2017 1:58 AM EST) Lactate 1.9 0.5 - 2.2 mmol/L 10/10/2017 2:32 AM EST [facility] Plasma specimen (specimen) 10/10/2017 1:58 AM EST 10/10/2017 2:01 AM EST us Ivett Banerjee MD LAB BLOOD ORDERABLES Final Result [facility] [address] [place] [address], [facility] * (ABNORMAL) Protime-INR (10/10/2017 1:58 AM EST) Protime 16.5(H) 11.8 - 14.8 seconds 10/10/2017 2:15 AM EST [facility] Comment:Effective 07/12/2017 , the PT and PTMIX reference range has changed from 11.6 -14.4 sec to 11.8-14.8 sec. INR 1.3(H) 0.9 - 1.1 10/10/2017 2:15 AM EST [facility] Comment: RECOMMENDED THERAPEUTIC RANGES USING INR : ?Stable oral anticoagulant therapy: ? 2.0 - 3.0 ?Mechanical prosthetic heart valve: ? 2.5 - 3.5 ?Recurrent acute myocardial infarction: ? 2.5 - 3.5 Plasma specimen (specimen) 10/10/2017 1:58 AM EST 10/10/2017 2:01 AM EST us Karishma Loaiza MD LAB BLOOD ORDERABLES F inal Result [facility] [address] [facility] [place] [address], [facility] * Magnesium (10/10/2017 1:58 AM EST) Magnesium 2.0 1.5 - 2.5 mg/dL 10/10/2017 2:30 AM EST [facility] Plasma specimen (specimen) 10/10/2017 1:58 AM EST 10/10/2017 2:01 AM EST Karishma Loaiza MD LAB BLOOD ORDERABLES F inal Result Performing Organization Address [facility]/ZIP Co de Phone Number [facility] [address] * (ABNORMAL) Hepatic Function Panel (10/10/2017 1:58 AM EST) Total Bilirubin 1.1 0.0 - 1.5 mg/dL 10/10/2017 2:30 AM EST [facility] Bilirubin, Direct 0.53(H) 0.00 - 0.40 mg/dL 10/10/2017 2:30 AM EST [facility] AST 231(H) 13 - 39 U/L 10/10/2017 2:30 AM EST [facility] ALT 439(H) 7 - 52 U/L 10/10/2017 2:30 AM EST [facility] Alkaline Phosphatase 81 36 - 125 U/L 10/10/2017 2:30 AM EST [facility] [facility] Total Protein 4.6(L) 6.4 - 8.9 g/dL 10/10/2017 2:30 AM EST [facility] Albumin 2.3(L) 3.5 - 5.7 g/dL 10/10/2017 2:30 AM EST [facility] Bilirubin, Indirect 0.57 0.00 - 1.10 mg/dL 10/10/2017 2:30 AM EST [facility] Plasma specimen (specimen) 10/10/2017 1:58 AM EST 10/10/2017 2:01 AM EST Karishma Loaiza MD LAB BLOOD ORDERABLES F inal Result Performing Organization Address City/[facility]/ZIP Co de Phone Number [facility] [address] * (ABNORMAL) Renal Function Panel w/EGFR (10/10/2017 1:58 AM EST) Sodium 144 133 - 146 mmol/L 10/10/2017 2:30 AM [facility] Potassium 4.0 3.5 - 5.3 mmol/L 10/10/2017 2:30 AM [facility] Chloride 113(H) 98 - 110 mmol/L 10/10/2017 2:30 AM [facility] CO2 20(L) 21 - 33 mmol/L 10/10/2017 2:30 AM [facility] Anion Gap 11 3 - 16 mmol/L 10/10/2017 2:30 AM [facility] BUN 46(H) 7 - 25 mg/dL 10/10/2017 2:30 AM [facility] Creatinine 2.22(H) 0.60 - 1.30 mg/dL 10/10/2017 2:30 AM [facility] Glucose 137(H) 70 - 100 mg/dL 10/10/2017 2:30 AM [facility] Calcium 8.4(L) 8.6 - 10.3 mg/dL 10/10/2017 2:30 AM [facility] Phosphorus 4.2 2.1 - 4.7 mg/dL 10/10/2017 2:30 AM [facility] Albumin 2.3(L) 3.5 - 5.7 g/dL 10/10/2017 2:30 AM [facility] Osmolality, Calculated 312(H) 278 - 305 mOsm/kg 10/10/2017 2:30 AM [facility] eGFR AA CKD-EPI 41 See note. 8 2:30 AM [facility] eGFR NONAA CKD-EPI 35 See note. 10/10/2017 2:30 AM [facility] Plasma specimen (specimen) 10/10/2017 1:58 AM EST 10/10/2017 2:01 AM EST [facility] - 10/10/2017 2:30 AM EST As [...] equation to estimate glomerular filtration rate. ??Jennifer Pelt [facility]. 2009:150(9):606-12 us Karishma Loaiza MD LAB BLOOD ORDERABLES F inal Result [facility] [address] * (ABNORMAL) CBC (10/10/2017 1:58 AM EST) WBC 9.3 3.8 - 10.8 10E3/uL 10/10/2017 2:07 AM EST [facility] RBC 2.64(L) 4.20 - 5.80 10E6/uL 10/10/2017 2:07 AM EST [facility] Hemoglobin 9.7(L) 13.2 - 17.1 g/dL 10/10/2017 2:07 AM EST [facility] Hematocrit 27.6(L) 38.5 - 50.0 % 10/10/2017 2:07 AM EST [facility] MCV 104.6(H) 80.0 - 100.0 fL 10/10/2017 2:07 AM EST [facility] MCH 36.6(H) 27.0 - 33.0 pg 10/10/2017 2:07 AM EST [facility] MCHC 35.0 32.0 - 36.0 g/dL 10/10/2017 2:07 AM [facility] RDW 21.0(H) 11.0 - 15.0 % 10/10/2017 2:07 AM EST [facility] Platelets 63(L) 140 - 400 10E3/uL 10/10/2017 2:07 AM [facility] MPV 8.1 7.5 - 11.5 fL 10/10/2017 2:07 AM [facility] Whole blood specimen (specimen) 10/10/2017 1:58 AM EST 10/10/2017 2:01 AM EST Karishma Loaiza MD LAB BLOOD ORDERABLES F inal Result [facility] [address] [facility]. [address] * (ABNORMAL) POC Glucose Monitoring Device (10/10/2017 1:56 AM EST) POC Glucose Monitoring Device 122(H) 70 - 100 mg/dL 10/10/2017 1:57 AM EST [facility] Blood specimen (specimen) 10/10/2017 1:56 AM EST 10/10/2017 1:56 AM EST Tami Richardson MD POINT OF CARE TEST ORDERABLES F inal Result Performing Organization Address [facility] Co de Phone Number [facility] [address] [facility] * (ABNORMAL) POC Glucose Monitoring Device (10/10/2017 12:00 AM EST) POC Glucose Monitoring Device 138(H) 70 - 100 mg/dL 10/10/2017 12:02 AM EST [facility] Blood specimen (specimen) 10/10/2017 10/10/2017 12:01 AM EST Tami Richardson MD POINT OF CARE TEST ORDERABLES F inal Result Performing Organization Address [facility] de Phone Number [facility] [address] [facility] * EKG - SCAN (10/10/2017 12:00 AM EST) us Scanning Uchhim SCAN DOCS - NO RESULTS Final Res ult * (ABNORMAL) POC Glucose Monitoring Device (10/09/2017 9:59 PM EST) POC Glucose Monitoring Device 165(H) 70 - 100 mg/dL 10/09/2017 10:00 PM EST [facility] Blood specimen (specimen) 10/09/2017 9:59 PM EST 10/09/2017 10:00 PM EST Tami Richardson MD POINT OF CARE TEST ORDERABLES F inal Result Performing Organization Address City/[facility]/ZIP Co de Phone Number [facility] [address] [facility]. [address] * (ABNORMAL) POC Glucose Monitoring Device (10/09/2017 7:58 PM EST) POC Glucose Monitoring Device 170(H) 70 - 100 mg/dL 10/09/2017 8:00 PM EST [facility] Blood specimen (specimen) 10/09/2017 7:58 PM EST 10/09/2017 8:00 PM EST Tami Richardson MD POINT OF CARE TEST ORDERABLES F inal Result Performing Organization Address [facility] Co de Phone Number [facility] [address] [facility] * (ABNORMAL) Ammonia (10/09/2017 7:20 PM EST) Ammonia 91(H) 27 - 90 ug/dL 10/09/2017 9:23 PM EST [facility] Plasma specimen (specimen) 10/09/2017 7:20 PM EST 10/09/2017 7:36 PM EST Ivett Banerjee MD LAB BLOOD ORDERABLES Final Result Performing Organization Address [facility] Co de Phone Number [facility] [address] [facility] * (ABNORMAL) POC Glucose Monitoring Device (10/09/2017 6:07 PM EST) POC Glucose Monitoring Device 168(H) 70 - 100 mg/dL 10/09/2017 6:08 PM EST [facility] Blood specimen (specimen) 10/09/2017 6:07 PM EST 10/09/2017 6:07 PM EST Tami Richardson MD POINT OF CARE TEST ORDERABLES F inal Result Performing Organization Address [facility]/ZIP Co de Phone Number [facility] [address] [facility] * CT Head WO contrast (10/09/2017 5:00 [...] - 100 mg/dL 10/09/2017 3:58 PM EST [facility] Blood specimen (specimen) 10/09/2017 3:57 PM EST 10/09/2017 3:58 PM EST Tami Richardson MD POINT OF CARE TEST ORDERABLES F inal Result [facility] [address] * (ABNORMAL) Blood Gas, Arterial (10/09/2017 3:33 PM EST) pH, Arterial 7.41 7.35 - 7.45 10/09/2017 3:39 PM EST [facility] pCO2, Arterial 34(L) 35 - 45 mm Hg 10/09/2017 3:39 PM EST [facility] pO2, Arterial 123(H) 80 - 100 mm Hg 10/09/2017 3:39 PM EST [facility] HCO3, Arterial 21(L) 22 - 26 mmol/L 10/09/2017 3:39 PM EST [facility] CO2 Content,Arteri al 22(L) 23 - 27 mmol/L 10/09/2017 3:39 PM EST [facility] Base Excess, Arterial -2.9(L) -2.0 - 3.0 mmol/L 10/09/2017 3:39 PM EST [facility] %HBO2, Arterial 97.6 95.0 - 98.0 % 10/09/2017 3:39 PM EST [facility] Carboxyhemoglo bin, Arterial 1.5 % 10/09/2017 3:39 PM EST [facility] Comment: CARBOXYHEMOGLOBIN (CO) REFERENCE RANGES: Non-Smokers: ??<2 % ? Smokers: ??<8 % TOXIC: >20 % Methemoglobin, Arterial 0.7 0.0 - 1.5 % 10/09/2017 3:39 PM EST [facility] Reduced hemoglobin, Arterial <2.4 0.0 - 5.0 % 10/09/2017 3:39 PM EST [facility] Arterial blood specimen (specimen) 10/09/2017 3:33 PM EST 10/09/2017 3:38 PM EST Ivett Banerjee MD LAB BLOOD ORDERABLES Final Result Performing Organization Address [facility] Co de Phone Number [facility] [address] * Magnesium (10/09/2017 2:08 PM EST) Pathologist [facility] Magnesium 2.0 1.5 - 2.5 mg/dL 10/09/2017 2:59 PM EST [facility] Plasma specimen (specimen) 10/09/2017 2:08 PM EST 10/09/2017 2:16 PM EST Karishma Loaiza MD LAB BLOOD ORDERABLES F inal Result Performing Organization Address [facility] Co de Phone Number [facility] [address] * (ABNORMAL) Hepatic Function Panel (10/09/2017 2:08 PM EST) Total Bilirubin 1.4 0.0 - 1.5 mg/dL 10/09/2017 2:59 PM EST [facility] Bilirubin, Direct 0.59(H) 0.00 - 0.40 mg/dL 10/09/2017 2:59 PM EST [facility] AST 407(H) 13 - 39 U/L 10/09/2017 2:59 PM EST [facility] ALT 550(H) 7 - 52 U/L 10/09/2017 2:59 PM EST [facility] Alkaline Phosphatase 65 36 - 125 U/L 10/09/2017 2:59 PM EST [facility] Total Protein 5.0(L) 6.4 - 8.9 g/dL 10/09/2017 2:59 PM EST [facility] Albumin 2.6(L) 3.5 - 5.7 g/dL 10/09/2017 2:59 PM EST [facility] Bilirubin, Indirect 0.81 0.00 - 1.10 mg/dL 10/09/2017 2:59 PM EST [facility] Plasma specimen (specimen) 10/09/2017 2:08 PM EST 10/09/2017 2:16 PM EST Karishma Loaiza MD LAB BLOOD ORDERABLES F inal Result [facility] [address] [id number], [facility] * (ABNORMAL) Renal Function Panel w/EGFR (10/09/2017 2:08 PM EST) Sodium 144 133 - 146 mmol/L 10/09/2017 2:48 PM EST [facility] Potassium 4.6 3.5 - 5.3 mmol/L 10/09/2017 2:48 PM [facility] Chloride 113(H) 98 - 110 mmol/L 10/09/2017 2:48 PM [facility] CO2 21 21 - 33 mmol/L 10/09/2017 2:48 PM [facility] Anion Gap 10 3 - 16 mmol/L 10/09/2017 2:48 PM [facility] BUN 41(H) 7 - 25 mg/dL 10/09/2017 2:48 PM [facility] Creatinine 2.12(H) 0.60 - 1.30 mg/dL 10/09/2017 2:48 PM [facility] Glucose 189(H) 70 - 100 mg/dL 10/09/2017 2:48 PM [facility] Calcium 8.9 8.6 - 10.3 mg/dL 10/09/2017 2:48 PM [facility] Phosphorus 4.1 2.1 - 4.7 mg/dL 10/09/2017 2:59 PM EST [facility] Albumin 2.6(L) 3.5 - 5.7 g/dL 10/09/2017 2:59 PM [facility] Osmolality, Calculated 313(H) 278 - 305 mOsm/kg 10/09/2017 2:48 PM EST [facility] eGFR AA CKD-EPI 43 See note. 8 2:48 PM EST [facility] eGFR NONAA CKD-EPI 37 See note. 10/09/2017 2:48 PM EST [facility] Plasma specimen (specimen) 10/09/2017 2:08 PM EST 10/09/2017 2:16 PM EST Narrative [facility] - 10/09/2017 2:59 PM EST As [...] equation to estimate glomerular filtration rate. ??Jennifer Pelt [facility]. 2009:150(9):604-12 Karishma Loaiza MD LAB BLOOD ORDERABLES F inal Result [facility] [address] * (ABNORMAL) Protime-INR (10/09/2017 2:08 PM EST) Protime 16.3(H) 11.8 - 14.8 seconds 10/09/2017 2:39 PM EST [facility] Comment:Effective 07/12/2017 , the PT and PTMIX reference range has changed from 11.6 -14.4 sec to 11.8-14.8 sec. INR 1.3(H) 0.9 - 1.1 10/09/2017 2:39 PM EST [facility] Comment: RECOMMENDED THERAPEUTIC RANGES USING INR : ?Stable oral anticoagulant therapy: ? 2.0 - 3.0 ?Mechanical prosthetic heart valve: ? 2.5 - 3.5 ?Recurrent acute myocardial infarction: ? 2.5 - 3.5 Plasma specimen (specimen) 10/09/2017 2:08 PM EST 10/09/2017 2:15 PM EST Karishma Loaiza MD LAB BLOOD ORDERABLES F inal Result [facility] [address] [phone], [facility] * (ABNORMAL) CBC (10/09/2017 2:08 PM EST) WBC 14.9(H) 3.8 - 10.8 10E3/uL 10/09/2017 2:33 PM EST [facility] RBC 3.00(L) 4.20 - 5.80 10E6/uL 10/09/2017 2:33 PM EST [facility] Hemoglobin 10.7(L) 13.2 - 17.1 g/dL 10/09/2017 2:33 PM EST [facility] Hematocrit 31.3(L) 38.5 - 50.0 % 10/09/2017 2:33 PM EST [facility] MCV 104.5(H) 80.0 - 100.0 fL 10/09/2017 2:33 PM EST [facility] MCH 35.9(H) 27.0 - 33.0 pg 10/09/2017 2:33 PM EST [facility] MCHC 34.3 32.0 - 36.0 g/dL 10/09/2017 2:33 PM EST [facility] RDW 21.3(H) 11.0 - 15.0 % 10/09/2017 2:33 PM EST [facility] Platelets 92(L) 140 - 400 10E3/uL 10/09/2017 2:33 PM EST [facility] MPV 8.8 7.5 - 11.5 fL 10/09/2017 2:33 PM EST [facility] Whole blood specimen (specimen) 10/09/2017 2:08 PM EST 10/09/2017 2:15 PM EST Karishma Loaiza MD LAB BLOOD ORDERABLES F inal Result Performing Organization Address [facility] Co de Phone Number [facility] [address] [facility] * (ABNORMAL) POC Glucose Monitoring Device (10/09/2017 2:06 PM EST) POC Glucose Monitoring Device 173(H) 70 - 100 mg/dL 10/09/2017 2:07 PM EST [facility] Blood specimen (specimen) 10/09/2017 2:06 PM EST 10/09/2017 2:07 PM EST Tami Richardson MD POINT OF CARE TEST ORDERABLES F inal Result Performing Organization Address [facility] Co de Phone Number [facility] [address] [facility] * RACHAEL RHYTHM STRIP - SCAN (10/09/2017 2:00 PM EST) us Scanning Uchhim SCAN DOCS - NO RESULTS Final Res ult * (ABNORMAL) POC Glucose Monitoring Device (10/09/2017 12:27 PM EST) POC Glucose Monitoring Device 164(H) 70 - 100 mg/dL 10/09/2017 12:29 PM EST [facility] Blood specimen (specimen) 10/09/2017 12:27 PM EST 10/09/2017 12:29 PM EST Tami Richardson MD POINT OF CARE TEST ORDERABLES F inal Result Performing Organization Address [facility] Co de Phone Number [facility] [address] [facility] * US Duplex Ybs-Lop-Fqcbovt Comp (10/09/2017 11:20 AM EST) Anatomical Region [...] ROSS MD at 10/09/2017 12:11 PM EST us Karishma Loaiza MD [facility] US ORDERABLES Yoselin l Result * US [...] 10/09/2017 12:11 PM EST Karishma Loaiza MD [facility] US ORDERABLES Yoselin l Result * (ABNORMAL) POC Glucose Monitoring Device (10/09/2017 11:04 AM EST) POC Glucose Monitoring Device 165(H) 70 - 100 mg/dL 10/09/2017 11:05 AM EST [facility] Blood specimen (specimen) 10/09/2017 11:04 AM EST 10/09/2017 11:05 AM EST Tami Richardson MD POINT OF CARE TEST ORDERABLES F inal Result Performing Organization Address City/[facility] Co de Phone Number [facility] [address] [facility] * (ABNORMAL) POC Glucose Monitoring Device (10/09/2017 10:02 AM EST) POC Glucose Monitoring Device 163(H) 70 - 100 mg/dL 10/09/2017 10:06 AM EST [facility] Blood specimen (specimen) 10/09/2017 10:02 AM EST 10/09/2017 10:06 AM EST Tami Richardson MD POINT OF CARE TEST ORDERABLES F inal Result Performing Organization Address [facility] de Phone Number [facility] [address] [facility] * (ABNORMAL) POC Glucose Monitoring Device (10/09/2017 9:19 AM EST) POC Glucose Monitoring Device 164(H) 70 - 100 mg/dL 10/09/2017 9:20 AM EST [facility] Blood specimen (specimen) 10/09/2017 9:19 AM EST 10/09/2017 9:20 AM EST Tami Richardson MD POINT OF CARE TEST ORDERABLES F inal Result Performing Organization Address City/[facility] Co de Phone Number [facility] [address] [facility] * (ABNORMAL) POC Glucose Monitoring Device (10/09/2017 8:04 AM EST) POC Glucose Monitoring Device 181(H) 70 - 100 mg/dL 10/09/2017 8:05 AM EST [facility] Blood specimen (specimen) 10/09/2017 8:04 AM EST 10/09/2017 8:05 AM EST Tami Richardson MD POINT OF CARE TEST ORDERABLES F inal Result Performing Organization Address [facility] Co de Phone Number [facility] [address] [facility] * RACHAEL RHYTHM STRIP - SCAN (10/09/2017 7:34 AM EST) us Scanning Uchhim SCAN DOCS - NO RESULTS Final Res ult * (ABNORMAL) POC Glucose Monitoring Device (10/09/2017 6:56 AM EST) POC Glucose Monitoring Device 189(H) 70 - 100 mg/dL 10/09/2017 6:57 AM EST [facility] Blood specimen (specimen) 10/09/2017 6:56 AM EST 10/09/2017 6:57 AM EST Tami Richardson MD POINT OF CARE TEST ORDERABLES F inal Result Performing Organization Address [facility] Co de Phone Number [facility] [address] [facility] * Magnesium (10/09/2017 6:42 AM EST) Magnesium 1.9 1.5 - 2.5 mg/dL 10/09/2017 8:22 AM EST [facility] Plasma specimen (specimen) 10/09/2017 6:42 AM EST 10/09/2017 6:54 AM EST Karishma Loaiza MD LAB BLOOD ORDERABLES F inal Result Performing Organization Address City/[facility]/ZIP Co de Phone Number [facility] [address] [facility] * (ABNORMAL) Hepatic Function Panel (10/09/2017 6:42 AM EST) Total Bilirubin 1.4 0.0 - 1.5 mg/dL 10/09/2017 8:22 AM EST [facility] Bilirubin, Direct 0.66(H) 0.00 - 0.40 mg/dL 10/09/2017 8:22 AM EST [facility] AST 632(H) 13 - 39 U/L 10/09/2017 8:22 AM EST [facility] ALT 654(H) 7 - 52 U/L 10/09/2017 8:22 AM EST [facility] Alkaline Phosphatase 61 36 - 125 U/L 10/09/2017 8:22 AM EST [facility] Total Protein 4.8(L) 6.4 - 8.9 g/dL 10/09/2017 8:22 AM EST [facility] Albumin 2.4(L) 3.5 - 5.7 g/dL 10/09/2017 8:22 AM EST [facility] Bilirubin, Indirect 0.74 0.00 - 1.10 mg/dL 10/09/2017 8:22 AM EST [facility] Plasma specimen (specimen) 10/09/2017 6:42 AM EST 10/09/2017 6:54 AM EST Karishma Loaiza MD LAB BLOOD ORDERABLES F inal Result Performing Organization Address City/State/[facility] Co de Phone Number [facility] [address] * (ABNORMAL) Renal Function Panel w/EGFR (10/09/2017 6:42 AM EST) Sodium 142 133 - 146 mmol/L 10/09/2017 8:08 AM EST [facility] Potassium 4.4 3.5 - 5.3 mmol/L 10/09/2017 8:08 AM EST [facility] Chloride 112(H) 98 - 110 mmol/L 10/09/2017 8:08 AM EST [facility] CO2 23 21 - 33 mmol/L 10/09/2017 8:08 AM EST [facility] Anion Gap 7 3 - 16 mmol/L 10/09/2017 8:08 AM EST [facility] BUN 37(H) 7 - 25 mg/dL 10/09/2017 8:08 AM EST [facility] Creatinine 2.04(H) 0.60 - 1.30 mg/dL 10/09/2017 8:08 AM EST [facility] Glucose 187(H) 70 - 100 mg/dL 10/09/2017 8:08 AM EST [facility] Calcium 9.3 8.6 - 10.3 mg/dL 10/09/2017 8:08 AM EST [facility] Phosphorus 4.6 2.1 - 4.7 mg/dL 10/09/2017 8:22 AM EST [facility] Albumin 2.4(L) 3.5 - 5.7 g/dL 10/09/2017 8:22 AM EST [facility] Osmolality, Calculated 308(H) 278 - 305 mOsm/kg 10/09/2017 8:08 AM EST [facility] eGFR AA CKD-EPI 45 See note. 8 8:08 AM EST [facility] eGFR NONAA CKD-EPI 39 See note. 10/09/2017 8:08 AM EST [facility] Plasma specimen (specimen) 10/09/2017 6:42 AM EST 10/09/2017 6:54 AM EST Narrative [facility] - 10/09/2017 8:22 AM EST As [...] equation to estimate glomerular filtration rate. ??Jennifer Pelt [facility]. 2009:150(9):604-12 Karishma Loaiza MD LAB BLOOD ORDERABLES F inal Result [facility] [address] [facility] [place] [address], [facility] * (ABNORMAL) Protime-INR (10/09/2017 6:42 AM EST) Protime 17.4(H) 11.8 - 14.8 seconds 10/09/2017 7:28 AM EST [facility] Comment:Effective 07/12/2017 , the PT and PTMIX reference range has changed from 11.6 -14.4 sec to 11.8-14.8 sec. INR 1.4(H) 0.9 - 1.1 10/09/2017 7:28 AM EST [facility] Comment: RECOMMENDED THERAPEUTIC RANGES USING INR : ?Stable oral anticoagulant therapy: ? 2.0 - 3.0 ?Mechanical prosthetic heart valve: ? 2.5 - 3.5 ?Recurrent acute myocardial infarction: ? 2.5 - 3.5 Plasma specimen (specimen) 10/09/2017 6:42 AM EST 10/09/2017 6:54 AM EST Karishma Loaiza MD LAB BLOOD ORDERABLES F inal Result Performing Organization Address City/State/[facility] Co de Phone Number [facility] [address] * (ABNORMAL) CBC (10/09/2017 6:42 AM EST) [facility] WBC 11.5(H) 3.8 - 10.8 10E3/uL 10/09/2017 7:25 AM EST [facility] RBC 2.86(L) 4.20 - 5.80 10E6/uL 10/09/2017 7:25 AM EST [facility] Hemoglobin 10.4(L) 13.2 - 17.1 g/dL 10/09/2017 7:25 AM EST [facility] Hematocrit 29.5(L) 38.5 - 50.0 % 10/09/2017 7:25 AM EST [facility] MCV 103.0(H) 80.0 - 100.0 fL 10/09/2017 7:25 AM EST [facility] MCH 36.2(H) 27.0 - 33.0 pg 10/09/2017 7:25 AM EST [facility] MCHC 35.2 32.0 - 36.0 g/dL 10/09/2017 7:25 AM EST [facility] RDW 20.9(H) 11.0 - 15.0 % 10/09/2017 7:25 AM EST [facility] Platelets 81(L) 140 - 400 10E3/uL 10/09/2017 7:25 AM EST [facility] MPV 9.0 7.5 - 11.5 fL 10/09/2017 7:25 AM EST [facility] Whole blood specimen (specimen) 10/09/2017 6:42 AM EST 10/09/2017 6:54 AM EST Karishma Loaiza MD LAB BLOOD ORDERABLES F inal Result Performing Organization Address City/State/[facility] Co de Phone Number [facility] [address] * X-ray Portable Chest (10/09/2017 6:20 [...] Glucose Monitoring Device (10/09/2017 6:05 AM EST) [facility] POC Glucose Monitoring Device 174(H) 70 - 100 mg/dL 10/09/2017 6:06 AM EST [facility] Blood specimen (specimen) 10/09/2017 6:05 AM EST 10/09/2017 6:06 AM EST Tami Richardson MD POINT OF CARE TEST ORDERABLES F inal Result [facility] [address] [id number], [facility] * (ABNORMAL) Blood gas, arterial (10/09/2017 6:05 AM EST) [facility] pH, Arterial 7.39 7.35 - 7.45 10/09/2017 6:15 AM EST [facility] pCO2, Arterial 36 35 - 45 mm Hg 10/09/2017 6:15 AM EST [facility] pO2, Arterial 126(H) 80 - 100 mm Hg 10/09/2017 6:15 AM EST [facility] HCO3, Arterial 21(L) 22 - 26 mmol/L 10/09/2017 6:15 AM EST [facility] CO2 Content,Arteri al 22(L) 23 - 27 mmol/L 10/09/2017 6:15 AM EST [facility] Base Excess, Arterial -3.4(L) -2.0 - 3.0 mmol/L 10/09/2017 6:15 AM EST [facility] %HBO2, Arterial 97.3 95.0 - 98.0 % 10/09/2017 6:15 AM [facility] Carboxyhemoglo bin, Arterial 1.9 % 10/09/2017 6:15 AM [facility] Comment: CARBOXYHEMOGLOBIN (CO) REFERENCE RANGES: Non-Smokers: ??<2 % ? Smokers: ??<8 % TOXIC: >20 % Methemoglobin, Arterial 0.9 0.0 - 1.5 % 10/09/2017 6:15 AM [facility] Reduced hemoglobin, Arterial <2.4 0.0 - 5.0 % 10/09/2017 6:15 AM [facility] Arterial blood specimen (specimen) 10/09/2017 6:05 AM EST 10/09/2017 6:09 AM EST us Tami Richardson MD LAB BLOOD ORDERABLES Final Resu lt Performing Organization Address City/[facility] Co de Phone Number [facility] [address] * (ABNORMAL) POC Glucose Monitoring Device (10/09/2017 5:03 AM EST) POC Glucose Monitoring Device 176(H) 70 - 100 mg/dL 10/09/2017 5:04 AM EST [facility] Blood specimen (specimen) 10/09/2017 5:03 AM EST 10/09/2017 5:04 AM EST us Tami Richardson MD POINT OF CARE TEST ORDERABLES F inal Result [facility] [address] [facility]. [address] * (ABNORMAL) POC Glucose Monitoring Device (10/09/2017 4:02 AM EST) POC Glucose Monitoring Device 180(H) 70 - 100 mg/dL 10/09/2017 4:04 AM EST [facility] Blood specimen (specimen) 10/09/2017 4:02 AM EST 10/09/2017 4:04 AM EST us Tami Richardson MD POINT OF CARE TEST ORDERABLES F inal Result Performing Organization Address [facility] Co de Phone Number [facility] [address] [facility]. [address] * (ABNORMAL) POC Glucose Monitoring Device (10/09/2017 3:00 AM EST) POC Glucose Monitoring Device 203(H) 70 - 100 mg/dL 10/09/2017 3:02 AM EST [facility] Blood specimen (specimen) 10/09/2017 3:00 AM EST 10/09/2017 3:01 AM EST us Tami Richarsdon MD POINT OF CARE TEST ORDERABLES F inal Result Performing Organization Address [facility] Co de Phone Number [facility] [address] [facility]. [address] * (ABNORMAL) Blood Gas, Arterial (10/09/2017 2:24 AM EST) pH, Arterial 7.36 7.35 - 7.45 10/09/2017 2:48 AM EST [facility] pCO2, Arterial 38 35 - 45 mm Hg 10/09/2017 2:48 AM EST [facility] pO2, Arterial 136(H) 80 - 100 mm Hg 10/09/2017 2:48 AM EST [facility] HCO3, Arterial 22 22 - 26 mmol/L 10/09/2017 2:48 AM EST [facility] CO2 Content,Arteri al 23 23 - 27 mmol/L 10/09/2017 2:48 AM EST [facility] Base Excess, Arterial -3.3(L) -2.0 - 3.0 mmol/L 10/09/2017 2:48 AM EST [facility] %HBO2, Arterial 97.0 95.0 - 98.0 % 10/09/2017 2:48 AM EST [facility] Carboxyhemoglo bin, Arterial 1.8 % 10/09/2017 2:48 AM EST [facility] Comment: CARBOXYHEMOGLOBIN (CO) REFERENCE RANGES: Non-Smokers: ??<2 % ? Smokers: ??<8 % TOXIC: >20 % Methemoglobin, Arterial 1.2 0.0 - 1.5 % 10/09/2017 2:48 AM EST [facility] Reduced hemoglobin, Arterial <2.4 0.0 - 5.0 % 10/09/2017 2:48 AM EST [facility] Arterial blood specimen (specimen) 10/09/2017 2:24 AM EST 10/09/2017 2:45 AM EST Je Acevedo MD LAB BLOOD ORDERABLES Final Resul t Performing Organization Address [facility] Co de Phone Number [facility] [address] * (ABNORMAL) POC Glucose Monitoring Device (10/09/2017 2:06 AM EST) POC Glucose Monitoring Device 203(H) 70 - 100 mg/dL 10/09/2017 2:07 AM EST [facility] Blood specimen (specimen) 10/09/2017 2:06 AM EST 10/09/2017 2:07 AM EST Tami Richardson MD POINT OF CARE TEST ORDERABLES F inal Result Performing Organization Address [facility] Co de Phone Number [facility] [address] * Hemoglobin A1c (10/09/2017 1:13 AM EST) Hemoglobin A1C 5.4 4.8 - 6.4 % 10/09/2017 2:06 AM EST [facility] Comment: Hemoglobin (Hb) A1C Normal: ??4.8 - 5.6% Increased Risk for Diabetes: 5.7 - 6.4% Diagnostic Diabetes: ? >/= ?? 6.5% (Drawn on 2 separate occasions) Glycemic Control for Adults with Diabetes: <7.0% (DCCT / NGSP) Whole blood specimen (specimen) 10/09/2017 1:13 AM EST 10/09/2017 1:57 AM EST Karishma Loaiza MD LAB BLOOD ORDERABLES F inal Result Performing Organization Address City/[facility]/ZIP Co de Phone Number [facility] [address] [facility]. [address] * Magnesium (10/09/2017 1:13 AM EST) Magnesium 2.0 1.5 - 2.5 mg/dL 10/09/2017 2:23 AM EST [facility] Plasma specimen (specimen) 10/09/2017 1:13 AM EST 10/09/2017 1:21 AM EST Karishma Loaiza MD LAB BLOOD ORDERABLES F inal Result Performing Organization Address [facility] Co de Phone Number [facility] [address] [facility]. [address] * (ABNORMAL) Hepatic Function Panel (10/09/2017 1:13 AM EST) Total Bilirubin 1.6(H) 0.0 - 1.5 mg/dL 10/09/2017 2:23 AM EST [facility] Bilirubin, Direct 0.71(H) 0.00 - 0.40 mg/dL 10/09/2017 2:23 AM EST [facility] AST 974(H) 13 - 39 U/L 10/09/2017 2:23 AM EST [facility] ALT 748(H) 7 - 52 U/L 10/09/2017 2:23 AM EST [facility] Alkaline Phosphatase 63 36 - 125 U/L 10/09/2017 2:23 AM EST [facility] Total Protein 4.7(L) 6.4 - 8.9 g/dL 10/09/2017 2:23 AM EST [facility] Albumin 2.4(L) 3.5 - 5.7 g/dL 10/09/2017 2:23 AM EST [facility] Bilirubin, Indirect 0.89 0.00 - 1.10 mg/dL 10/09/2017 2:23 AM EST [facility] Plasma specimen (specimen) 10/09/2017 1:13 AM EST 10/09/2017 1:21 AM EST us Karishma Loaiza MD LAB BLOOD ORDERABLES F inal Result [facility] [address] * (ABNORMAL) Renal Function Panel w/EGFR (10/09/2017 1:13 AM EST) Sodium 145 133 - 146 mmol/L 10/09/2017 2:23 AM EST [facility] Potassium 4.2 3.5 - 5.3 mmol/L 10/09/2017 2:23 AM [facility] Chloride 114(H) 98 - 110 mmol/L 10/09/2017 2:23 AM [facility] CO2 21 21 - 33 mmol/L 10/09/2017 2:23 AM [facility] Anion Gap 10 3 - 16 mmol/L 10/09/2017 2:23 AM [facility] BUN 34(H) 7 - 25 mg/dL 10/09/2017 2:23 AM [facility] Creatinine 1.87(H) 0.60 - 1.30 mg/dL 10/09/2017 2:23 AM [facility] Glucose 223(H) 70 - 100 mg/dL 10/09/2017 2:23 AM EST [facility] Calcium 9.3 8.6 - 10.3 mg/dL 10/09/2017 2:23 AM [facility] Phosphorus 3.8 2.1 - 4.7 mg/dL 10/09/2017 2:23 AM EST [facility] Albumin 2.4(L) 3.5 - 5.7 g/dL 10/09/2017 2:23 AM EST [facility] Osmolality, Calculated 315(H) 278 - 305 mOsm/kg 10/09/2017 2:23 AM EST [facility] eGFR AA CKD-EPI 50 See note. 8 2:23 AM EST [facility] eGFR NONAA CKD-EPI 43 See note. 10/09/2017 2:23 AM EST [facility] Plasma specimen (specimen) 10/09/2017 1:13 AM EST 10/09/2017 1:21 AM EST Narrative [facility] - 10/09/2017 2:23 AM EST As [...] equation to estimate glomerular filtration rate. ??Jennifer Pelt [facility]. 2009:150(9):604-12 Karishma Loaiza MD LAB BLOOD ORDERABLES F inal Result [facility] [address] [facility] [place] [address], [facility] * (ABNORMAL) Protime-INR (10/09/2017 1:13 AM EST) Protime 18.8(H) 11.8 - 14.8 seconds 10/09/2017 1:44 AM EST [facility] Comment:Effective 07/12/2017 , the PT and PTMIX reference range has changed from 11.6 -14.4 sec to 11.8-14.8 sec. INR 1.6(H) 0.9 - 1.1 10/09/2017 1:44 AM EST [facility] Comment: RECOMMENDED THERAPEUTIC RANGES USING INR : ?Stable oral anticoagulant therapy: ? 2.0 - 3.0 ?Mechanical prosthetic heart valve: ? 2.5 - 3.5 ?Recurrent acute myocardial infarction: ? 2.5 - 3.5 Plasma specimen (specimen) 10/09/2017 1:13 AM EST 10/09/2017 1:21 AM EST Karishma Loaiza MD LAB BLOOD ORDERABLES F inal Result [facility] [address] [facility] [place] [address], [facility] * (ABNORMAL) CBC (10/09/2017 1:13 AM EST) WBC 8.6 3.8 - 10.8 10E3/uL 10/09/2017 1:28 AM EST [facility] RBC 2.87(L) 4.20 - 5.80 10E6/uL 10/09/2017 1:28 AM EST [facility] Hemoglobin 10.5(L) 13.2 - 17.1 g/dL 10/09/2017 1:28 AM EST [facility] Hematocrit 29.7(L) 38.5 - 50.0 % 10/09/2017 1:28 AM EST [facility] MCV 103.2(H) 80.0 - 100.0 fL 10/09/2017 1:28 AM EST [facility] MCH 36.5(H) 27.0 - 33.0 pg 10/09/2017 1:28 AM EST [facility] MCHC 35.3 32.0 - 36.0 g/dL 10/09/2017 1:28 AM EST [facility] RDW 20.8(H) 11.0 - 15.0 % 10/09/2017 1:28 AM EST [facility] Platelets 76(L) 140 - 400 10E3/uL 10/09/2017 1:28 AM EST [facility] MPV 8.7 7.5 - 11.5 fL 10/09/2017 1:28 AM EST [facility] Whole blood specimen (specimen) 10/09/2017 1:13 AM EST 10/09/2017 1:21 AM EST us Karishma Loaiza MD LAB BLOOD ORDERABLES F inal Result Performing Organization Address City/[facility]/ZIP Co de Phone Number [facility] [address] [facility] * (ABNORMAL) POC Glucose Monitoring Device (10/09/2017 1:11 AM EST) POC Glucose Monitoring Device 216(H) 70 - 100 mg/dL 10/09/2017 1:12 AM EST [facility] Blood specimen (specimen) 10/09/2017 1:11 AM EST 10/09/2017 1:12 AM EST us Tami Richardson MD POINT OF CARE TEST ORDERABLES F inal Result Performing Organization Address [facility]/ZIP Co de Phone Number [facility] [address] [facility] * (ABNORMAL) POC Glucose Monitoring Device (10/09/2017 12:10 AM EST) POC Glucose Monitoring Device 233(H) 70 - 100 mg/dL 10/09/2017 12:11 AM EST [facility] Blood specimen (specimen) 10/09/2017 12:10 AM EST 10/09/2017 12:11 AM EST us Tami Richardson MD POINT OF CARE TEST ORDERABLES F inal Result [facility] [address] [facility] * (ABNORMAL) POC Glucose Monitoring Device (10/08/2017 11:11 PM EST) POC Glucose Monitoring Device 254(H) 70 - 100 mg/dL 10/08/2017 11:13 PM EST [facility] Blood specimen (specimen) 10/08/2017 11:11 PM EST 10/08/2017 11:13 PM EST Tami Richardson MD POINT OF CARE TEST ORDERABLES F inal Result Performing Organization Address [facility] Co de Phone Number [facility] [address] [facility] * (ABNORMAL) POC Glucose Monitoring Device (10/08/2017 10:03 PM EST) POC Glucose Monitoring Device 227(H) 70 - 100 mg/dL 10/08/2017 10:05 PM EST [facility] Blood specimen (specimen) 10/08/2017 10:03 PM EST 10/08/2017 10:05 PM EST Tami Richardson MD POINT OF CARE TEST ORDERABLES F inal Result Performing Organization Address [facility] de Phone Number [facility] [address] [facility] * (ABNORMAL) POC Glucose Monitoring Device (10/08/2017 9:03 PM EST) POC Glucose Monitoring Device 233(H) 70 - 100 mg/dL 10/08/2017 9:05 PM EST [facility] Blood specimen (specimen) 10/08/2017 9:03 PM EST 10/08/2017 9:05 PM EST Tami Richardson MD POINT OF CARE TEST ORDERABLES F inal Result Performing Organization Address [facility] Co de Phone Number [facility] [address] [facility] * Magnesium (10/08/2017 8:06 PM EST) Magnesium 1.5 1.5 - 2.5 mg/dL 10/08/2017 8:55 PM EST [facility] Plasma specimen (specimen) 10/08/2017 8:06 PM EST 10/08/2017 8:14 PM EST Karishma Loaiza MD LAB BLOOD ORDERABLES F inal Result [facility] [address] * (ABNORMAL) Hepatic Function Panel (10/08/2017 8:06 PM EST) Total Bilirubin 2.5(H) 0.0 - 1.5 mg/dL 10/08/2017 8:55 PM EST [facility] Bilirubin, Direct 1.26(H) 0.00 - 0.40 mg/dL 10/08/2017 8:55 PM EST [facility] AST 1,541(H) 13 - 39 U/L 10/08/2017 8:55 PM EST [facility] ALT 863(H) 7 - 52 U/L 10/08/2017 8:55 PM EST [facility] Alkaline Phosphatase 76 36 - 125 U/L 10/08/2017 8:55 PM EST [facility] Total Protein 5.1(L) 6.4 - 8.9 g/dL 10/08/2017 8:55 PM EST [facility] Albumin 2.6(L) 3.5 - 5.7 g/dL 10/08/2017 8:55 PM EST [facility] Bilirubin, Indirect 1.24(H) 0.00 - 1.10 mg/dL 10/08/2017 8:55 PM EST [facility] Plasma specimen (specimen) 10/08/2017 8:06 PM EST 10/08/2017 8:14 PM EST Karishma Loaiza MD LAB BLOOD ORDERABLES F inal Result [facility] [address] * (ABNORMAL) Renal Function Panel w/EGFR (10/08/2017 8:06 PM EST) Sodium 145 133 - 146 mmol/L 10/08/2017 8:55 PM EST [facility] Potassium 4.1 3.5 - 5.3 mmol/L 10/08/2017 8:55 PM EST [facility] Chloride 115(H) 98 - 110 mmol/L 10/08/2017 8:55 PM EST [facility] CO2 22 21 - 33 mmol/L 10/08/2017 8:55 PM [facility] Anion Gap 8 3 - 16 mmol/L 10/08/2017 8:55 PM [facility] BUN 31(H) 7 - 25 mg/dL 10/08/2017 8:55 PM [facility] Creatinine 1.81(H) 0.60 - 1.30 mg/dL 10/08/2017 8:55 PM [facility] Glucose 242(H) 70 - 100 mg/dL 10/08/2017 8:55 PM [facility] Calcium 9.7 8.6 - 10.3 mg/dL 10/08/2017 8:55 PM [facility] Phosphorus 3.8 2.1 - 4.7 mg/dL 10/08/2017 8:55 PM [facility] Albumin 2.6(L) 3.5 - 5.7 g/dL 10/08/2017 8:55 PM [facility] Osmolality, Calculated 315(H) 278 - 305 mOsm/kg 10/08/2017 8:55 PM [facility] eGFR AA CKD-EPI 52 See note. 8 8:55 PM [facility] eGFR NONAA CKD-EPI 45 See note. 10/08/2017 8:55 PM [facility] Plasma specimen (specimen) 10/08/2017 8:06 PM EST 10/08/2017 8:14 PM EST Narrative [facility] - 10/08/2017 8:55 PM EST As [...] equation to estimate glomerular filtration rate. ??Jennifer Pelt [facility]. 2009:150(9):604-12 Karishma Loaiza MD LAB BLOOD ORDERABLES F inal Result [facility] [address] * (ABNORMAL) Protime-INR (10/08/2017 8:06 PM EST) Protime 19.4(H) 11.8 - 14.8 seconds 10/08/2017 9:00 PM EST [facility] Comment:Effective 07/12/2017 , the PT and PTMIX reference range has changed from 11.6 -14.4 sec to 11.8-14.8 sec. INR 1.6(H) 0.9 - 1.1 10/08/2017 9:00 PM EST [facility] Comment: RECOMMENDED THERAPEUTIC RANGES USING INR : ?Stable oral anticoagulant therapy: ? 2.0 - 3.0 ?Mechanical prosthetic heart valve: ? 2.5 - 3.5 ?Recurrent acute myocardial infarction: ? 2.5 - 3.5 Plasma specimen (specimen) 10/08/2017 8:06 PM EST 10/08/2017 8:14 PM EST Karishma Loaiza MD LAB BLOOD ORDERABLES F inal Result [facility] [address] [facility] * (ABNORMAL) CBC (10/08/2017 8:06 PM EST) WBC 7.6 3.8 - 10.8 10E3/uL 10/08/2017 8:22 PM EST [facility] RBC 2.98(L) 4.20 - 5.80 10E6/uL 10/08/2017 8:22 PM EST [facility] Hemoglobin 11.1(L) 13.2 - 17.1 g/dL 10/08/2017 8:22 PM EST [facility] Hematocrit 30.5(L) 38.5 - 50.0 % 10/08/2017 8:22 PM EST [facility] MCV 102.3(H) 80.0 - 100.0 fL 10/08/2017 8:22 PM EST [facility] MCH 37.1(H) 27.0 - 33.0 pg 10/08/2017 8:22 PM EST [facility] MCHC 36.3(H) 32.0 - 36.0 g/dL 10/08/2017 8:22 PM EST [facility] RDW 21.2(H) 11.0 - 15.0 % 10/08/2017 8:22 PM EST [facility] Platelets 80(L) 140 - 400 10E3/uL 10/08/2017 8:22 PM [facility] MPV 8.5 7.5 - 11.5 fL 10/08/2017 8:22 PM EST [facility] Whole blood specimen (specimen) 10/08/2017 8:06 PM EST 10/08/2017 8:14 PM EST Karishma Loaiza MD LAB BLOOD ORDERABLES F inal Result Performing Organization Address City/[facility]/ZIP Co de Phone Number [facility] [address] * (ABNORMAL) POC Glucose Monitoring Device (10/08/2017 8:05 PM EST) [facility] POC Glucose Monitoring Device 227(H) 70 - 100 mg/dL 10/08/2017 8:06 PM EST [facility] Blood specimen (specimen) 10/08/2017 8:05 PM EST 10/08/2017 8:06 PM EST Tami Richardson MD POINT OF CARE TEST ORDERABLES F inal Result [facility] [address] * (ABNORMAL) POC Glucose Monitoring Device (10/08/2017 7:01 PM EST) POC Glucose Monitoring Device 241(H) 70 - 100 mg/dL 10/08/2017 7:02 PM EST [facility] Blood specimen (specimen) 10/08/2017 7:01 PM EST 10/08/2017 7:02 PM EST Tami Richardson MD POINT OF CARE TEST ORDERABLES F inal Result Performing Organization Address City/[facility]/ZIP Co de Phone Number [facility] [address] [facility] * (ABNORMAL) POC Glucose Monitoring Device (10/08/2017 6:08 PM EST) POC Glucose Monitoring Device 260(H) 70 - 100 mg/dL 10/08/2017 6:09 PM EST [facility] Blood specimen (specimen) 10/08/2017 6:08 PM EST 10/08/2017 6:09 PM EST Tami Richardson MD POINT OF CARE TEST ORDERABLES F inal Result Performing Organization Address City/[facility] Co de Phone Number [facility] [address] [facility] * (ABNORMAL) POC Glucose Monitoring Device (10/08/2017 5:18 PM EST) POC Glucose Monitoring Device 277(H) 70 - 100 mg/dL 10/08/2017 5:38 PM EST [facility] Blood specimen (specimen) 10/08/2017 5:18 PM EST 10/08/2017 5:38 PM EST Tami Richardson MD POINT OF CARE TEST ORDERABLES F inal Result Performing Organization Address City/[facility] Co de Phone Number [facility] [address] [facility] * (ABNORMAL) POC Glucose Monitoring Device (10/08/2017 4:07 PM EST) POC Glucose Monitoring Device 258(H) 70 - 100 mg/dL 10/08/2017 4:27 PM EST [facility] Blood specimen (specimen) 10/08/2017 4:07 PM EST 10/08/2017 4:27 PM EST Tami Richardson MD POINT OF CARE TEST ORDERABLES F inal Result [facility] [address] [facility] * (ABNORMAL) Triglycerides (10/08/2017 3:06 PM EST) Triglycerides 187(H) 10 - 149 mg/dL 10/08/2017 3:48 PM EST [facility] Plasma specimen (specimen) 10/08/2017 3:06 PM EST 10/08/2017 3:18 PM EST Narrative [facility] - 10/08/2017 3:48 PM EST If on Propofol, draw triglycerides now and every 72 hours until medication is discontinued Adilene Carnes MD LAB BLOOD ORDERABLES Final Result Performing Organization Address [facility]/ZIP Co de Phone Number [facility] [address] [facility] * (ABNORMAL) POC Glucose Monitoring Device (10/08/2017 2:58 PM EST) POC Glucose Monitoring Device 276(H) 70 - 100 mg/dL 10/08/2017 3:18 PM EST [facility] Blood specimen (specimen) 10/08/2017 2:58 PM EST 10/08/2017 3:17 PM EST Tami Richardson MD POINT OF CARE TEST ORDERABLES F inal Result [facility] [address] [facility] * X-ray Portable Chest (10/08/2017 2:13 PM [...] agree with this report. Report Verified by: Jcak Vargas at 10/08/2017 2:36 PM EST Karishma Loaiza MD IMG DIAGNOSTIC IMAGING ORDERABLES Final Result * (ABNORMAL) Hepatic Function Panel (10/08/2017 1:53 PM EST) Total Bilirubin 5.0(H) 0.0 - 1.5 mg/dL 10/08/2017 3:04 PM EST [facility] Bilirubin, Direct 2.91(H) 0.00 - 0.40 mg/dL 10/08/2017 3:04 PM EST [facility] AST 1,721(H) 13 - 39 U/L 10/08/2017 3:04 PM EST [facility] ALT 856(H) 7 - 52 U/L 10/08/2017 3:04 PM EST [facility] Alkaline Phosphatase 81 36 - 125 U/L 10/08/2017 3:04 PM EST [facility] Total Protein 4.7(L) 6.4 - 8.9 g/dL 10/08/2017 3:04 PM EST [facility] Albumin 2.4(L) 3.5 - 5.7 g/dL 10/08/2017 3:04 PM EST [facility] Bilirubin, Indirect 2.09(H) 0.00 - 1.10 mg/dL 10/08/2017 3:04 PM EST [facility] Plasma specimen (specimen) 10/08/2017 1:53 PM EST 10/08/2017 2:22 PM EST us Tami Richardson MD LAB BLOOD ORDERABLES Final Resu lt [facility] [address] [place] [address], [facility] * Lactic acid, ABG (10/08/2017 1:53 PM EST) Lactate, Art 1.4 0.5 - 1.6 mmol/L 10/08/2017 2:05 PM EST [facility] Arterial blood specimen (specimen) 10/08/2017 1:53 PM EST 10/08/2017 2:04 PM EST Adilene Carnes MD LAB BLOOD ORDERABLES Final Result Performing Organization Address City/State/[facility] Co de Phone Number [facility] [address] * (ABNORMAL) Calcium Ionized, Whole Blood (10/08/2017 1:53 PM EST) Free Calcium, WB 5.90(H) 4.50 - 5.30 mg/dL 10/08/2017 2:05 PM EST [facility] Arterial blood specimen (specimen) 10/08/2017 1:53 PM EST 10/08/2017 2:04 PM EST Adilene Carnes MD LAB BLOOD ORDERABLES Final Result Performing Organization Address [facility] Co de Phone Number [facility] [address] * (ABNORMAL) Blood gas, arterial (10/08/2017 1:53 PM EST) pH, Arterial 7.34(L) 7.35 - 7.45 10/08/2017 2:05 PM EST [facility] pCO2, Arterial 44 35 - 45 mm Hg 10/08/2017 2:05 PM [facility] pO2, Arterial 148(H) 80 - 100 mm Hg 10/08/2017 2:05 PM [facility] HCO3, Arterial 24 22 - 26 mmol/L 10/08/2017 2:05 PM [facility] CO2 Content,Arteri al 25 23 - 27 mmol/L 10/08/2017 2:05 PM [facility] Base Excess, Arterial -2.1(L) -2.0 - 3.0 mmol/L 10/08/2017 2:05 PM [facility] %HBO2, Arterial 97.1 95.0 - 98.0 % 10/08/2017 2:05 PM [facility] Carboxyhemoglo bin, Arterial 1.8 % 10/08/2017 2:05 PM EST [facility] Comment: CARBOXYHEMOGLOBIN (CO) REFERENCE RANGES: Non-Smokers: ??<2 % ? Smokers: ??<8 % TOXIC: >20 % Methemoglobin, Arterial 0.9 0.0 - 1.5 % 10/08/2017 2:05 PM EST [facility] Reduced hemoglobin, Arterial <2.4 0.0 - 5.0 % 10/08/2017 2:05 PM EST [facility] Arterial blood specimen (specimen) 10/08/2017 1:53 PM EST 10/08/2017 2:04 PM EST Adilene Carnes MD LAB BLOOD ORDERABLES Final Result Performing Organization Address [facility] Co de Phone Number [facility] [address] * (ABNORMAL) Rapid TEG (10/08/2017 1:53 PM EST) TEG ACT 121.0(H) 86.0 - 118.0 seconds 10/08/2017 4:06 PM EST [facility] Comment:The TEG ACT test par ameter is approved to monitor heparin in adult patients. It has not been approved by the FDA for other uses. TEG R Time 45.0(H) 22 - 44 seconds 10/08/2017 4:06 PM EST [facility] TEG Time 120.0 34 - 138 seconds 10/08/2017 4:06 PM [facility] TEG Angle 72.3 64 - 80 degrees 10/08/2017 4:06 PM [facility] TEG Max Amplitude 54.1 52 - 71 mm 10/08/2017 4:06 PM EST [facility] TEG Lysis 30 0.0 % 10/08/2017 4:06 PM EST [facility] Whole blood specimen (specimen) 10/08/2017 1:53 PM EST 10/08/2017 2:16 PM EST Adilene Carnes MD LAB BLOOD ORDERABLES Final Result Performing Organization Address [facility] Co de Phone Number [facility] [address] [facility]. [address] * (ABNORMAL) Fibrinogen (10/08/2017 1:53 PM EST) Fibrinogen 192(L) 218 - 406 mg/dL 10/08/2017 3:22 PM EST [facility] Plasma specimen (specimen) 10/08/2017 1:53 PM EST 10/08/2017 2:16 PM EST Karishma Loaiza MD LAB BLOOD ORDERABLES F inal Result Performing Organization Address [facility] de Phone Number [facility] [address] * (ABNORMAL) Protime-INR (10/08/2017 1:53 PM EST) Pathologist [facility] Protime 21.0(H) 11.8 - 14.8 seconds 10/08/2017 3:22 PM EST [facility] Comment:Effective 07/12/2017 , the PT and PTMIX reference range has changed from 11.6 -14.4 sec to 11.8-14.8 sec. INR 1.8(H) 0.9 - 1.1 10/08/2017 3:22 PM EST [facility] Comment: RECOMMENDED THERAPEUTIC RANGES USING INR : ?Stable oral anticoagulant therapy: ? 2.0 - 3.0 ?Mechanical prosthetic heart valve: ? 2.5 - 3.5 ?Recurrent acute myocardial infarction: ? 2.5 - 3.5 Plasma specimen (specimen) 10/08/2017 1:53 PM EST 10/08/2017 2:16 PM EST Karishma Loaiza MD LAB BLOOD ORDERABLES F inal Result Performing Organization Address [facility]/State/ZIP Co de Phone Number [facility] [address] * (ABNORMAL) CBC (10/08/2017 1:53 PM EST) WBC 3.6(L) 3.8 - 10.8 10E3/uL 10/08/2017 2:25 PM EST [facility] RBC 2.77(L) 4.20 - 5.80 10E6/uL 10/08/2017 2:25 PM EST [facility] Hemoglobin 10.2(L) 13.2 - 17.1 g/dL 10/08/2017 2:25 PM EST [facility] Hematocrit 28.6(L) 38.5 - 50.0 % 10/08/2017 2:25 PM EST [facility] MCV 103.2(H) 80.0 - 100.0 fL 10/08/2017 2:25 PM EST [facility] MCH 36.7(H) 27.0 - 33.0 pg 10/08/2017 2:25 PM EST [facility] MCHC 35.6 32.0 - 36.0 g/dL 10/08/2017 2:25 PM EST [facility] RDW 20.6(H) 11.0 - 15.0 % 10/08/2017 2:25 PM EST [facility] Platelets 86(L) 140 - 400 10E3/uL 10/08/2017 2:25 PM EST [facility] MPV 8.1 7.5 - 11.5 fL 10/08/2017 2:25 PM EST [facility] Whole blood specimen (specimen) 10/08/2017 1:53 PM EST 10/08/2017 2:16 PM EST Karishma Loaiza MD LAB BLOOD ORDERABLES F inal Result [facility] [address] [place] [address] * Phosphorus (10/08/2017 1:53 PM EST) Phosphorus 4.5 2.1 - 4.7 mg/dL 10/08/2017 3:04 PM EST [facility] Plasma specimen (specimen) 10/08/2017 1:53 PM EST 10/08/2017 2:24 PM EST Karishma Loaiza MD LAB BLOOD ORDERABLES F inal Result [facility] [address] * Magnesium (10/08/2017 1:53 PM EST) Magnesium 1.7 1.5 - 2.5 mg/dL 10/08/2017 3:04 PM EST [facility] Plasma specimen (specimen) 10/08/2017 1:53 PM EST 10/08/2017 2:24 PM EST Karishma Loaiza MD LAB BLOOD ORDERABLES F inal Result Performing Organization Address [facility] Co de Phone Number [facility] [address] * (ABNORMAL) Comprehensive metabolic panel (10/08/2017 1:53 PM EST) Sodium 145 133 - 146 mmol/L 10/08/2017 3:04 PM EST [facility] Potassium 4.7 3.5 - 5.3 mmol/L 10/08/2017 3:04 PM EST [facility] Chloride 113(H) 98 - 110 mmol/L 10/08/2017 3:04 PM EST [facility] CO2 21 21 - 33 mmol/L 10/08/2017 3:04 PM EST [facility] Anion Gap 11 3 - 16 mmol/L 10/08/2017 3:04 PM EST [facility] BUN 25 7 - 25 mg/dL 10/08/2017 3:04 PM [facility] Creatinine 1.58(H) 0.60 - 1.30 mg/dL 10/08/2017 3:04 PM EST [facility] Glucose 252(H) 70 - 100 mg/dL 10/08/2017 3:04 PM EST [facility] Calcium 9.6 8.6 - 10.3 mg/dL 10/08/2017 3:04 PM EST [facility] Total Bilirubin 5.0(H) 0.0 - 1.5 mg/dL 10/08/2017 3:04 PM EST [facility] AST 1,721(H) 13 - 39 U/L 10/08/2017 3:04 PM EST [facility] ALT 856(H) 7 - 52 U/L 10/08/2017 3:04 PM EST [facility] Alkaline Phosphatase 81 36 - 125 U/L 10/08/2017 3:04 PM EST [facility] Total Protein 4.7(L) 6.4 - 8.9 g/dL 10/08/2017 3:04 PM [facility] Albumin 2.4(L) 3.5 - 5.7 g/dL 10/08/2017 3:04 PM EST [facility] Osmolality, Calculated 313(H) 278 - 305 mOsm/kg 10/08/2017 3:04 PM EST [facility] eGFR AA CKD-EPI 61 See note. 8 3:04 PM EST [facility] eGFR NONAA CKD-EPI 53 See note. 10/08/2017 3:04 PM EST [facility] Plasma specimen (specimen) 10/08/2017 1:53 PM EST 10/08/2017 2:24 PM EST Narrative [facility] - 10/08/2017 3:04 PM EST As [...] equation to estimate glomerular filtration rate. ??Jennifer P[facility] [employer]. 2009:150(9):604-12 Karishma Loaiza MD LAB BLOOD ORDERABLES F inal Result [facility] [address] [place] [address], [facility] * (ABNORMAL) POC Glucose Monitoring Device (10/08/2017 1:52 PM EST) Pathologist [facility] POC Glucose Monitoring Device 251(H) 70 - 100 mg/dL 10/08/2017 2:04 PM EST [facility] Blood specimen (specimen) 10/08/2017 1:52 PM EST 10/08/2017 2:04 PM EST us Tami Richardson MD POINT OF CARE TEST ORDERABLES F inal Result [facility] [address] [facility]. [address] * POC Sample Type (10/08/2017 12:32 PM EST) [facility] POC Sample Type Arterial 10/08/2017 12:36 PM EST [facility] Arterial blood specimen (specimen) 10/08/2017 12:32 PM EST 10/08/2017 12:36 PM EST Tami Richardson MD POINT OF CARE TEST ORDERABLES F inal Result Performing Organization Address City/[facility]/ZIP Co de Phone Number [facility] [address] [facility]. [address] * POC Anion Gap (10/08/2017 12:32 PM EST) [facility] POC Anion Gap, Arterial 9 3 - 16 mmol/L 10/08/2017 12:36 PM EST [facility] Arterial blood specimen (specimen) 10/08/2017 12:32 PM EST 10/08/2017 12:36 PM EST Tami Richardson MD POINT OF CARE TEST ORDERABLES F inal Result [facility] [address] [facility]. [address] * POC TCO2 (10/08/2017 12:32 PM EST) [facility] POC TCO2, Arterial 25 23 - 27 mmol/L 10/08/2017 12:36 PM EST [facility] Arterial blood specimen (specimen) 10/08/2017 12:32 PM EST 10/08/2017 12:36 PM EST Result [facility] us Tami Richardson MD POINT OF CARE TEST ORDERABLES F inal Result [facility] [address] [place] [address]. [address] * (ABNORMAL) POC O2 SAT (10/08/2017 12:32 PM EST) POC O2 Saturation, Arterial 100(H) 95 - 98 % 10/08/2017 12:36 PM EST [facility] Arterial blood specimen (specimen) 10/08/2017 12:32 PM EST 10/08/2017 12:36 PM EST us Tami Richardson MD POINT OF CARE TEST ORDERABLES F inal Result Performing Organization Address [facility] Co de Phone Number [facility] [address] [place] [address]. [address] * POC Base Excess (10/08/2017 12:32 PM EST) POC Base Excess, Arterial -2 -2 - 3 mmol/L 10/08/2017 12:36 PM EST [facility] Arterial blood specimen (specimen) 10/08/2017 12:32 PM EST 10/08/2017 12:36 PM EST Result [facility] us Tami Richardson MD POINT OF CARE TEST ORDERABLES F inal Result [facility] [address] [place] [address]. [address] * POC HCO3 (10/08/2017 12:32 PM EST) POC HCO3, Arterial 24 22 - 26 mmol/L 10/08/2017 12:36 PM EST [facility] Arterial blood specimen (specimen) 10/08/2017 12:32 PM EST 10/08/2017 12:36 PM EST Result [facility] us Tami Richardson MD POINT OF CARE TEST ORDERABLES F inal Result [facility] [address] * (ABNORMAL) POC Chloride (10/08/2017 12:32 PM EST) POC Chloride 114(H) 98 - 110 mmol/L 10/08/2017 12:36 PM EST [facility] Arterial blood specimen (specimen) 10/08/2017 12:32 PM EST 10/08/2017 12:36 PM EST Tami Richardson MD POINT OF CARE TEST ORDERABLES F inal Result Performing Organization Address [facility] Co de Phone Number [facility] [address] [facility]. [address] * POC Lactate (10/08/2017 12:32 PM EST) Pathologist [facility] POC Lactate 1.63 0.50 - 2.20 mmol/L 10/08/2017 12:36 PM EST [facility] Arterial blood specimen (specimen) 10/08/2017 12:32 PM EST 10/08/2017 12:36 PM EST Tami Richardson MD POINT OF CARE TEST ORDERABLES F inal Result Performing Organization Address City/[facility]/ZIP Co de Phone Number [facility] [address] [facility]. [address] * (ABNORMAL) POC Glucose (10/08/2017 12:32 PM EST) POC Glucose, Arterial 225(H) 70 - 100 mg/dL 10/08/2017 12:36 PM EST [facility] Arterial blood specimen (specimen) 10/08/2017 12:32 PM EST 10/08/2017 12:36 PM EST Tami Richardson MD POINT OF CARE TEST ORDERABLES F inal Result [facility] [address] * (ABNORMAL) POC Ionized Calcium (10/08/2017 12:32 PM EST) POC Ionized Calcium 6.30(HH) 4.50 - 5.30 mg/dL 10/08/2017 12:36 PM EST [facility] Arterial blood specimen (specimen) 10/08/2017 12:32 PM EST 10/08/2017 12:36 PM EST Tami Richardson MD POINT OF CARE TEST ORDERABLES F inal Result [facility] [address] [facility]. [address] * POC Potassium (10/08/2017 12:32 PM EST) Pathologist [facility] POC Potassium 4.9 3.5 - 5.3 mmol/L 10/08/2017 12:36 PM EST [facility] Arterial blood specimen (specimen) 10/08/2017 12:32 PM EST 10/08/2017 12:36 PM EST Tami Richardson MD POINT OF CARE TEST ORDERABLES F inal Result Performing Organization Address City/[facility]/ZIP Co de Phone Number [facility] [address] [facility] * (ABNORMAL) POC Sodium (10/08/2017 12:32 PM EST) Pathologist [facility] POC Sodium 147(H) 136 - 146 mmol/L 10/08/2017 12:36 PM EST [facility] Arterial blood specimen (specimen) 10/08/2017 12:32 PM EST 10/08/2017 12:36 PM EST Tami Richardson MD POINT OF CARE TEST ORDERABLES F inal Result Performing Organization Address City/[facility]/ZIP Co de Phone Number [facility] [address] [facility] * (ABNORMAL) POC PO2 (10/08/2017 12:32 PM EST) POC pO2, Arterial 363(H) 80 - 100 mm Hg 10/08/2017 12:36 PM EST [facility] Arterial blood specimen (specimen) 10/08/2017 12:32 PM EST 10/08/2017 12:36 PM EST Tami Richardson MD POINT OF CARE TEST ORDERABLES F inal Result Performing Organization Address City/[facility]/ZIP Co de Phone Number [facility] [address] [address] * POC PCO2 (10/08/2017 12:32 PM EST) POC pCO2, Arterial 45 35 - 45 mm Hg 10/08/2017 12:36 PM EST [facility] Arterial blood specimen (specimen) 10/08/2017 12:32 PM EST 10/08/2017 12:36 PM EST Tami Richardson MD POINT OF CARE TEST ORDERABLES F inal Result Performing Organization Address [facility] Co de Phone Number [facility] [address] * (ABNORMAL) POC pH (10/08/2017 12:32 PM EST) POC pH, Arterial 7.33(L) 7.35 - 7.45 10/08/2017 12:36 PM EST [facility] Arterial blood specimen (specimen) 10/08/2017 12:32 PM EST 10/08/2017 12:36 PM EST Tami Richardson MD POINT OF CARE TEST ORDERABLES F inal Result Performing Organization Address City/[facility] Co de Phone Number [facility] [address] [facility] * (ABNORMAL) POC Hemocue Hemoglobin (10/08/2017 12:26 PM EST) Hemoglobin, Hemocue 9.5(L) 13.2 - 17.1 g/dL 10/08/2017 12:38 PM EST [facility] Whole blood specimen (specimen) 10/08/2017 12:26 PM EST 10/08/2017 12:38 PM EST Tami Richardson MD POINT OF CARE TEST ORDERABLES F inal Result Performing Organization Address [facility] de Phone Number [facility] [address] * (ABNORMAL) POC INR (10/08/2017 12:22 PM EST) Pathologist [facility] Prothrombin Time INR, POC 1.9(H) 0.8 - [...] ORDERABLES F inal Result Performing Organization Address [facility] Co de Phone Number [facility] [address] [facility]. [address] * POC Sample Type (10/08/2017 11:38 AM EST) Pathologist [facility] POC Sample Type Arterial 10/08/2017 11:42 AM EST [facility] Arterial blood specimen (specimen) 10/08/2017 11:38 AM EST 10/08/2017 11:42 AM EST us Tami Richardson MD POINT OF CARE TEST ORDERABLES F inal Result Performing Organization Address City/[facility] Co de Phone Number [facility] [address] [place] [address]. [address] * POC Anion Gap (10/08/2017 11:38 AM EST) POC Anion Gap, Arterial 9 3 - 16 mmol/L 10/08/2017 11:42 AM EST [facility] Arterial blood specimen (specimen) 10/08/2017 11:38 AM EST 10/08/2017 11:42 AM EST us Tami Richardson MD POINT OF CARE TEST ORDERABLES F inal Result Performing Organization Address [facility] Co de Phone Number [facility] [address] [place] [address]. [address] * POC TCO2 (10/08/2017 11:38 AM EST) POC TCO2, Arterial 25 23 - 27 mmol/L 10/08/2017 11:42 AM EST [facility] Arterial blood specimen (specimen) 10/08/2017 11:38 AM EST 10/08/2017 11:42 AM EST Result Yuri Richardson MD POINT OF CARE TEST ORDERABLES F inal Result Performing Organization Address City/[facility] Co de Phone Number [facility] [address] [place] [address]. [address] * (ABNORMAL) POC O2 SAT (10/08/2017 11:38 AM EST) POC O2 Saturation, Arterial 100(H) 95 - 98 % 10/08/2017 11:42 AM EST [facility] Arterial blood specimen (specimen) 10/08/2017 11:38 AM EST 10/08/2017 11:42 AM EST us Tami Richardson MD POINT OF CARE TEST ORDERABLES F inal Result [facility] [address] * POC Base Excess (10/08/2017 11:38 AM EST) POC Base Excess, Arterial -2 -2 - 3 mmol/L 10/08/2017 11:42 AM EST [facility] Arterial blood specimen (specimen) 10/08/2017 11:38 AM EST 10/08/2017 11:42 AM EST Tami Richardson MD POINT OF CARE TEST ORDERABLES F inal Result Performing Organization Address [facility] Co de Phone Number [facility] [address] [facility]. [address] * POC HCO3 (10/08/2017 11:38 AM EST) POC HCO3, Arterial 24 22 - 26 mmol/L 10/08/2017 11:42 AM EST [facility] Arterial blood specimen (specimen) 10/08/2017 11:38 AM EST 10/08/2017 11:42 AM EST us Tami Richardson MD POINT OF CARE TEST ORDERABLES F inal Result Performing Organization Address [facility] Co de Phone Number [facility] [address] [facility]. [address] * (ABNORMAL) POC Chloride (10/08/2017 11:38 AM EST) POC Chloride 114(H) 98 - 110 mmol/L 10/08/2017 11:42 AM EST [facility] Arterial blood specimen (specimen) 10/08/2017 11:38 AM EST 10/08/2017 11:42 AM EST us Tami Richardson MD POINT OF CARE TEST ORDERABLES F inal Result Performing Organization Address City/[facility]/ZIP Co de Phone Number [facility] [address] [facility]. [address] * (ABNORMAL) POC Lactate (10/08/2017 11:38 AM EST) POC Lactate 2.47(H) 0.50 - 2.20 mmol/L 10/08/2017 11:42 AM EST [facility] Arterial blood specimen (specimen) 10/08/2017 11:38 AM EST 10/08/2017 11:42 AM EST us Tami Richardson MD POINT OF CARE TEST ORDERABLES F inal Result [facility] [address] [facility] * (ABNORMAL) POC Glucose (10/08/2017 11:38 AM EST) Pathologist [facility] POC Glucose, Arterial 218(H) 70 - 100 mg/dL 10/08/2017 11:42 AM EST [facility] Arterial blood specimen (specimen) 10/08/2017 11:38 AM EST 10/08/2017 11:42 AM EST us Tami Richardson MD POINT OF CARE TEST ORDERABLES F inal Result Performing Organization Address [facility] Co de Phone Number [facility] [address] [place] [address]. [address] * (ABNORMAL) POC Ionized Calcium (10/08/2017 11:38 AM EST) Pathologist [facility] POC Ionized Calcium 6.10(H) 4.50 - 5.30 mg/dL 10/08/2017 11:42 AM EST [facility] Arterial blood specimen (specimen) 10/08/2017 11:38 AM EST 10/08/2017 11:42 AM EST us Tami Richardson MD POINT OF CARE TEST ORDERABLES F inal Result Performing Organization Address City/[facility] Co de Phone Number [facility] [address] [facility]. [address] * POC Potassium (10/08/2017 11:38 AM EST) Pathologist [facility] POC Potassium 4.3 3.5 - 5.3 mmol/L 10/08/2017 11:42 AM EST [facility] Arterial blood specimen (specimen) 10/08/2017 11:38 AM EST 10/08/2017 11:42 AM EST us Tami Richardson MD POINT OF CARE TEST ORDERABLES F inal Result Performing Organization Address City/[facility]/ZIP Co de Phone Number [facility] [address] [place] [address]. [address] * (ABNORMAL) POC Sodium (10/08/2017 11:38 AM EST) POC Sodium 147(H) 136 - 146 mmol/L 10/08/2017 11:42 AM EST [facility] Arterial blood specimen (specimen) 10/08/2017 11:38 AM EST 10/08/2017 11:42 AM EST us Tami Richardson MD POINT OF CARE TEST ORDERABLES F inal Result Performing Organization Address [facility] Co de Phone Number [facility] [address] [place] [address]. [address] * (ABNORMAL) POC PO2 (10/08/2017 11:38 AM EST) POC pO2, Arterial 280(H) 80 - 100 mm Hg 10/08/2017 11:42 AM EST [facility] Arterial blood specimen (specimen) 10/08/2017 11:38 AM EST 10/08/2017 11:42 AM EST Tami Richardson MD POINT OF CARE TEST ORDERABLES F inal Result Performing Organization Address City/[facility] Co de Phone Number [address] * POC PCO2 (10/08/2017 11:38 AM EST) POC pCO2, Arterial 45 35 - 45 mm Hg 10/08/2017 11:42 AM EST [facility] Arterial blood specimen (specimen) 10/08/2017 11:38 AM EST 10/08/2017 11:42 AM EST Result Yuri Richardson MD POINT OF CARE TEST ORDERABLES F inal Result Performing Organization Address [facility] Co de Phone Number [facility] [address] * (ABNORMAL) POC pH (10/08/2017 11:38 AM EST) POC pH, Arterial 7.34(L) 7.35 - 7.45 10/08/2017 11:42 AM EST [facility] Arterial blood specimen (specimen) 10/08/2017 11:38 AM EST 10/08/2017 11:42 AM EST Result Yuri Richardson MD POINT OF CARE TEST ORDERABLES F inal Result Performing Organization Address [facility] Co de Phone Number [facility] [address] [facility] * (ABNORMAL) POC Hemocue Hemoglobin (10/08/2017 11:37 AM EST) Hemoglobin, Hemocue 8.7(L) 13.2 - 17.1 g/dL 10/08/2017 12:38 PM EST [facility] Whole blood specimen (specimen) 10/08/2017 11:37 AM EST 10/08/2017 12:38 PM EST Result Yuri Richardson MD POINT OF CARE TEST ORDERABLES F inal Result Performing Organization Address [facility] Co de Phone Number [facility] [address] [facility]. [address] * (ABNORMAL) POC INR (10/08/2017 11:33 AM EST) Prothrombin Time INR, POC 1.8(H) 0.8 - 1.4 10/11/2017 6:44 AM EST [facility] Comment: Test results may vary using [...] ORDERABLES F inal Result Performing Organization Address [facility] de Phone Number [facility] [address] [facility] * POC Sample Type (10/08/2017 11:09 AM EST) POC Sample Type Arterial 10/08/2017 11:14 AM EST [facility] Arterial blood specimen (specimen) 10/08/2017 11:09 AM EST 10/08/2017 11:13 AM EST us Tami Richardson MD POINT OF CARE TEST ORDERABLES F inal Result Performing Organization Address [facility] de Phone Number [facility] [address] [facility] * POC Anion Gap (10/08/2017 11:09 AM EST) POC Anion Gap, Arterial 13 3 - 16 mmol/L 10/08/2017 11:14 AM EST [facility] Arterial blood specimen (specimen) 10/08/2017 11:09 AM EST 10/08/2017 11:13 AM EST us Tami Richardson MD POINT OF CARE TEST ORDERABLES F inal Result Performing Organization Address [facility] de Phone Number [facility] [address] * (ABNORMAL) POC TCO2 (10/08/2017 11:09 AM EST) POC TCO2, Arterial 22(L) 23 - 27 mmol/L 10/08/2017 11:14 AM EST [facility] Arterial blood specimen (specimen) 10/08/2017 11:09 AM EST 10/08/2017 11:13 AM EST us Tami Richardson MD POINT OF CARE TEST ORDERABLES F inal Result Performing Organization Address City/[facility]/ZIP Co de Phone Number [facility] [address] * (ABNORMAL) POC O2 SAT (10/08/2017 11:09 AM EST) POC O2 Saturation, Arterial 100(H) 95 - 98 % 10/08/2017 11:14 AM EST [facility] Arterial blood specimen (specimen) 10/08/2017 11:09 AM EST 10/08/2017 11:13 AM EST us Tami Richardson MD POINT OF CARE TEST ORDERABLES F inal Result Performing Organization Address City/[facility]/ZIP Co de Phone Number [facility] [address] [facility]. [address] * (ABNORMAL) POC Base Excess (10/08/2017 11:09 AM EST) POC Base Excess, Arterial -5(L) -2 - 3 mmol/L 10/08/2017 11:14 AM EST [facility] Arterial blood specimen (specimen) 10/08/2017 11:09 AM EST 10/08/2017 11:13 AM EST us Tami Richardson MD POINT OF CARE TEST ORDERABLES F inal Result Performing Organization Address City/[facility]/ZIP Co de Phone Number [facility] [address] * (ABNORMAL) POC HCO3 (10/08/2017 11:09 AM EST) POC HCO3, Arterial 21(L) 22 - 26 mmol/L 10/08/2017 11:14 AM EST [facility] Arterial blood specimen (specimen) 10/08/2017 11:09 AM EST 10/08/2017 11:13 AM EST Tami Richardson MD POINT OF CARE TEST ORDERABLES F inal Result [facility] [address] [place] [address]. [address] * (ABNORMAL) POC Chloride (10/08/2017 11:09 AM EST) POC Chloride 112(H) 98 - 110 mmol/L 10/08/2017 11:14 AM EST [facility] Arterial blood specimen (specimen) 10/08/2017 11:09 AM EST 10/08/2017 11:13 AM EST Tami Richardson MD POINT OF CARE TEST ORDERABLES F inal Result Performing Organization Address City/[facility]/ZIP Co de Phone Number [facility] [address] [place] [address]. [address] * (ABNORMAL) POC Lactate (10/08/2017 11:09 AM EST) POC Lactate 4.04(H) 0.50 - 2.20 mmol/L 10/08/2017 11:14 AM EST [facility] Arterial blood specimen (specimen) 10/08/2017 11:09 AM EST 10/08/2017 11:13 AM EST us Tami Richardson MD POINT OF CARE TEST ORDERABLES F inal Result [facility] [address] [place] [address]. [address] * (ABNORMAL) POC Glucose (10/08/2017 11:09 AM EST) POC Glucose, Arterial 167(H) 70 - 100 mg/dL 10/08/2017 11:14 AM EST [facility] Arterial blood specimen (specimen) 10/08/2017 11:09 AM EST 10/08/2017 11:13 AM EST us Tami Richardson MD POINT OF CARE TEST ORDERABLES F inal Result Performing Organization Address City/[facility]/ZIP Co de Phone Number [facility] [address] [facility] * (ABNORMAL) POC Ionized Calcium (10/08/2017 11:09 AM EST) Pathologist [facility] POC Ionized Calcium 6.40(HH) 4.50 - 5.30 mg/dL 10/08/2017 11:14 AM EST [facility] Arterial blood specimen (specimen) 10/08/2017 11:09 AM EST 10/08/2017 11:13 AM EST us Tami Richardson MD POINT OF CARE TEST ORDERABLES F inal Result Performing Organization Address City/[facility] Co de Phone Number [facility] [address] [facility] * POC Potassium (10/08/2017 11:09 AM EST) Pathologist [facility] POC Potassium 4.2 3.5 - 5.3 mmol/L 10/08/2017 11:14 AM EST [facility] Arterial blood specimen (specimen) 10/08/2017 11:09 AM EST 10/08/2017 11:13 AM EST Tami Richardson MD POINT OF CARE TEST ORDERABLES F inal Result Performing Organization Address City/State/[facility] Co de Phone Number [facility] [address] [facility] * POC Sodium (10/08/2017 11:09 AM EST) Pathologist [facility] POC Sodium 146 136 - 146 mmol/L 10/08/2017 11:14 AM EST [facility] Arterial blood specimen (specimen) 10/08/2017 11:09 AM EST 10/08/2017 11:13 AM EST us Tami Richardson MD POINT OF CARE TEST ORDERABLES F inal Result Performing Organization Address [facility] Co de Phone Number [facility] [address] [place] [address]. [address] * (ABNORMAL) POC PO2 (10/08/2017 11:09 AM EST) POC pO2, Arterial 242(H) 80 - 100 mm Hg 10/08/2017 11:14 AM EST [facility] Arterial blood specimen (specimen) 10/08/2017 11:09 AM EST 10/08/2017 11:13 AM EST us Tami Richardson MD POINT OF CARE TEST ORDERABLES F inal Result Performing Organization Address [facility] Co de Phone Number [facility] [address] [place] [address]. [address] * POC PCO2 (10/08/2017 11:09 AM EST) POC pCO2, Arterial 40 35 - 45 mm Hg 10/08/2017 11:14 AM EST [facility] Arterial blood specimen (specimen) 10/08/2017 11:09 AM EST 10/08/2017 11:13 AM EST us Tami Richardson MD POINT OF CARE TEST ORDERABLES F inal Result Performing Organization Address City/[facility] Co de Phone Number [facility] [address] [facility] * (ABNORMAL) POC pH (10/08/2017 11:09 AM EST) POC pH, Arterial 7.32(L) 7.35 - 7.45 10/08/2017 11:14 AM EST [facility] Arterial blood specimen (specimen) 10/08/2017 11:09 AM EST 10/08/2017 11:13 AM EST us Tami Richardson MD POINT OF CARE TEST ORDERABLES F inal Result [facility] [address] * POC Sample Type (10/08/2017 11:05 AM EST) POC Sample Type Arterial 10/08/2017 11:08 AM EST [facility] Arterial blood specimen (specimen) 10/08/2017 11:05 AM EST 10/08/2017 11:08 AM EST Tami Richardson MD POINT OF CARE TEST ORDERABLES F inal Result Performing Organization Address [facility] Co de Phone Number [facility] [address] [facility]. [address] * POC Anion Gap (10/08/2017 11:05 AM EST) POC Anion Gap, Arterial 15 3 - 16 mmol/L 10/08/2017 11:08 AM EST [facility] Arterial blood specimen (specimen) 10/08/2017 11:05 AM EST 10/08/2017 11:08 AM EST Tami Richardson MD POINT OF CARE TEST ORDERABLES F inal Result Performing Organization Address [facility] Co de Phone Number [facility] [address] [facility] * (ABNORMAL) POC TCO2 (10/08/2017 11:05 AM EST) POC TCO2, Arterial 22(L) 23 - 27 mmol/L 10/08/2017 11:08 AM EST [facility] Arterial blood specimen (specimen) 10/08/2017 11:05 AM EST 10/08/2017 11:08 AM EST Tami Richardson MD POINT OF CARE TEST ORDERABLES F inal Result [facility] [address] * (ABNORMAL) POC O2 SAT (10/08/2017 11:05 AM EST) POC O2 Saturation, Arterial 100(H) 95 - 98 % 10/08/2017 11:08 AM EST [facility] Arterial blood specimen (specimen) 10/08/2017 11:05 AM EST 10/08/2017 11:08 AM EST Tami Richardson MD POINT OF CARE TEST ORDERABLES F inal Result [facility] [address] * (ABNORMAL) POC Base Excess (10/08/2017 11:05 AM EST) POC Base Excess, Arterial -4(L) -2 - 3 mmol/L 10/08/2017 11:08 AM EST [facility] Arterial blood specimen (specimen) 10/08/2017 11:05 AM EST 10/08/2017 11:08 AM EST Tami Richardson MD POINT OF CARE TEST ORDERABLES F inal Result Performing Organization Address City/[facility]/ZIP Co de Phone Number [facility] [address] [place] [address] [facility]. [address] * (ABNORMAL) POC HCO3 (10/08/2017 11:05 AM EST) POC HCO3, Arterial 21(L) 22 - 26 mmol/L 10/08/2017 11:08 AM EST [facility] Arterial blood specimen (specimen) 10/08/2017 11:05 AM EST 10/08/2017 11:08 AM EST Tami Richardson MD POINT OF CARE TEST ORDERABLES F inal Result [facility] [address] * (ABNORMAL) POC Chloride (10/08/2017 11:05 AM EST) POC Chloride 114(H) 98 - 110 mmol/L 10/08/2017 11:08 AM EST [facility] Arterial blood specimen (specimen) 10/08/2017 11:05 AM EST 10/08/2017 11:08 AM EST Tami Richardson MD POINT OF CARE TEST ORDERABLES F inal Result Performing Organization Address City/[facility]/ZIP Co de Phone Number [facility] [address] [place] [address] * (ABNORMAL) POC Ionized Calcium (10/08/2017 11:05 AM EST) Pathologist [facility] POC Ionized Calcium 6.10(H) 4.50 - 5.30 mg/dL 10/08/2017 11:08 AM EST [facility] Arterial blood specimen (specimen) 10/08/2017 11:05 AM EST 10/08/2017 11:08 AM EST Tami Richardson MD POINT OF CARE TEST ORDERABLES F inal Result Performing Organization Address City/[facility] Co de Phone Number [facility] [address] [place] [address] * POC Potassium (10/08/2017 11:05 AM EST) Pathologist [facility] POC Potassium 4.2 3.5 - 5.3 mmol/L 10/08/2017 11:08 AM EST [facility] Arterial blood specimen (specimen) 10/08/2017 11:05 AM EST 10/08/2017 11:08 AM EST us Tami Richardson MD POINT OF CARE TEST ORDERABLES F inal Result Performing Organization Address City/[facility] Co de Phone Number [facility] [address] [place] [address] * (ABNORMAL) POC Sodium (10/08/2017 11:05 AM EST) Pathologist [facility] POC Sodium 150(H) 136 - 146 mmol/L 10/08/2017 11:08 AM EST [facility] Arterial blood specimen (specimen) 10/08/2017 11:05 AM EST 10/08/2017 11:08 AM EST us Tami Richardson MD POINT OF CARE TEST ORDERABLES F inal Result Performing Organization Address [facility] Co de Phone Number [facility] [address] [place] [address]. [address] * (ABNORMAL) POC PO2 (10/08/2017 11:05 AM EST) POC pO2, Arterial 266(H) 80 - 100 mm Hg 10/08/2017 11:08 AM EST [facility] Arterial blood specimen (specimen) 10/08/2017 11:05 AM EST 10/08/2017 11:08 AM EST Tami Richardson MD POINT OF CARE TEST ORDERABLES F inal Result Performing Organization Address [facility] Co de Phone Number [facility] [address] [facility] * POC PCO2 (10/08/2017 11:05 AM EST) POC pCO2, Arterial 39 35 - 45 mm Hg 10/08/2017 11:08 AM EST [facility] Arterial blood specimen (specimen) 10/08/2017 11:05 AM EST 10/08/2017 11:08 AM EST Tami Richardson MD POINT OF CARE TEST ORDERABLES F inal Result Performing Organization Address [facility] Co de Phone Number [facility] [address] [facility] * (ABNORMAL) POC pH (10/08/2017 11:05 AM EST) POC pH, Arterial 7.34(L) 7.35 - 7.45 10/08/2017 11:08 AM EST [facility] Arterial blood specimen (specimen) 10/08/2017 11:05 AM EST 10/08/2017 11:08 AM EST Tami Richardson MD POINT OF CARE TEST ORDERABLES F inal Result [facility] [address] * (ABNORMAL) POC Hemocue Hemoglobin (10/08/2017 11:03 AM EST) Hemoglobin, Hemocue 8.8(L) 13.2 - 17.1 g/dL 10/08/2017 12:38 PM EST [facility] Whole blood specimen (specimen) 10/08/2017 11:03 AM EST 10/08/2017 12:38 PM EST Tami Richardson MD POINT OF CARE TEST ORDERABLES F inal Result Performing Organization Address [facility] Co de Phone Number [facility] [address] * (ABNORMAL) CBC (10/08/2017 11:03 AM EST) WBC 3.2(L) 3.8 - 10.8 10E3/uL 10/08/2017 11:18 AM EST [facility] RBC 2.55(L) 4.20 - 5.80 10E6/uL 10/08/2017 11:18 AM EST [facility] Hemoglobin 9.2(L) 13.2 - 17.1 g/dL 10/08/2017 11:18 AM EST [facility] Hematocrit 26.3(L) 38.5 - 50.0 % 10/08/2017 11:18 AM EST [facility] MCV 103.4(H) 80.0 - 100.0 fL 10/08/2017 11:18 AM EST [facility] MCH 36.1(H) 27.0 - 33.0 pg 10/08/2017 11:18 AM EST [facility] MCHC 34.9 32.0 - 36.0 g/dL 10/08/2017 11:18 AM EST [facility] RDW 20.6(H) 11.0 - 15.0 % 10/08/2017 11:18 AM EST [facility] Platelets 92(L) 140 - 400 10E3/uL 10/08/2017 11:18 AM EST [facility] MPV 7.9 7.5 - 11.5 fL 10/08/2017 11:18 AM EST [facility] Whole blood specimen (specimen) 10/08/2017 11:03 AM EST 10/08/2017 11:09 AM EST us Renato Dias MD LAB BLOOD ORDERABLES Final Result Performing Organization Address City/[facility]/ZIP Co de Phone Number [facility] [address] [facility] * (ABNORMAL) APTT, No Anticoagulant (10/08/2017 11:03 AM EST) aPTT 101.1(HH) 25.5 - 35.0 seconds 10/08/2017 11:56 AM EST [facility] Comment:The critical result was called to, and read back by, licensed caregiver JUDIE CRESPO RN @11:55 BY [place] Plasma specimen (specimen) 10/08/2017 11:03 AM EST 10/08/2017 11:09 AM EST us Renato Dias MD LAB BLOOD ORDERABLES Final Result Performing Organization Address [facility] Co de Phone Number [facility] [address] * (ABNORMAL) Fibrinogen (10/08/2017 11:03 AM EST) Fibrinogen 145(L) 218 - 406 mg/dL 10/08/2017 11:34 AM EST [facility] Plasma specimen (specimen) 10/08/2017 11:03 AM EST 10/08/2017 11:09 AM EST us Renato Dias MD LAB BLOOD ORDERABLES Final Result Performing Organization Address City/[facility] Co de Phone Number [facility] [address] [facility] * (ABNORMAL) Protime-INR (10/08/2017 11:03 AM EST) Protime 24.9(H) 11.8 - 14.8 seconds 10/08/2017 11:29 AM EST [facility] Comment:Effective 07/12/2017 , the PT and PTMIX reference range has changed from 11.6 -14.4 sec to 11.8-14.8 sec. INR 2.2(H) 0.9 - 1.1 10/08/2017 11:29 AM EST [facility] Comment: RECOMMENDED THERAPEUTIC RANGES USING INR : ?Stable oral anticoagulant therapy: ? 2.0 - 3.0 ?Mechanical prosthetic heart valve: ? 2.5 - 3.5 ?Recurrent acute myocardial infarction: ? 2.5 - 3.5 Plasma specimen (specimen) 10/08/2017 11:03 AM EST 10/08/2017 11:09 AM EST Renato Dias MD LAB BLOOD ORDERABLES Final Result Performing Organization Address City/State/[facility] Co de Phone Number [facility] [address] * (ABNORMAL) Rapid TEG (10/08/2017 11:03 AM EST) Pathologist [facility] TEG ACT 136.0(H) 86.0 - 118.0 seconds 10/08/2017 12:34 PM EST [facility] Comment:The TEG ACT test par ameter is approved to monitor heparin in adult patients. It has not been approved by the FDA for other uses. TEG R Time 55.0(H) 22 - 44 seconds 10/08/2017 12:34 PM EST [facility] TEG Time 135.0 34 - 138 seconds 10/08/2017 12:34 PM EST [facility] TEG Angle 70.1 64 - 80 degrees 10/08/2017 12:34 PM EST [facility] TEG Max Amplitude 51.3(L) 52 - 71 mm 10/08/2017 12:34 PM EST [facility] TEG Lysis 30 0.0 % 10/08/2017 12:34 PM EST [facility] Whole blood specimen (specimen) 10/08/2017 11:03 AM EST 10/08/2017 11:09 AM EST Renato Dias MD LAB BLOOD ORDERABLES Final Result Performing Organization Address [facility] Co de Phone Number [facility] [address] [facility] * (ABNORMAL) POC INR (10/08/2017 10:58 AM EST) [facility] Prothrombin Time INR, POC 2.4(H) 0.8 - 1.4 10/11/2017 6:44 AM EST [facility] Comment: Test results may vary using [...] ORDERABLES F inal Result Performing Organization Address [facility] Co de Phone Number [facility] [address] * (ABNORMAL) POC Hemocue Hemoglobin (10/08/2017 10:04 AM EST) Hemoglobin, Hemocue 9.1(L) 13.2 - 17.1 g/dL 10/08/2017 12:38 PM EST [facility] Whole blood specimen (specimen) 10/08/2017 10:04 AM EST 10/08/2017 12:38 PM EST Tami Richardson MD POINT OF CARE TEST ORDERABLES F inal Result [facility] [address] [facility]. [address] * POC Sample Type (10/08/2017 10:04 AM EST) Pathologist [facility] POC Sample Type Arterial 10/08/2017 10:07 AM EST [facility] Arterial blood specimen (specimen) 10/08/2017 10:04 AM EST 10/08/2017 10:07 AM EST Tami Richardson MD POINT OF CARE TEST ORDERABLES F inal Result Performing Organization Address City/[facility]/ZIP Co de Phone Number [facility] [address] * POC Anion Gap (10/08/2017 10:04 AM EST) Pathologist [facility] POC Anion Gap, Arterial 11 3 - 16 mmol/L 10/08/2017 10:07 AM EST [facility] Arterial blood specimen (specimen) 10/08/2017 10:04 AM EST 10/08/2017 10:07 AM EST Tami Richardson MD POINT OF CARE TEST ORDERABLES F inal Result [facility] [address] * POC TCO2 (10/08/2017 10:04 AM EST) Pathologist [facility] POC TCO2, Arterial 24 23 - 27 mmol/L 10/08/2017 10:07 AM EST [facility] Arterial blood specimen (specimen) 10/08/2017 10:04 AM EST 10/08/2017 10:07 AM EST us Tami Richardson MD POINT OF CARE TEST ORDERABLES F inal Result Performing Organization Address City/[facility]/ZIP Co de Phone Number [facility] [address] [place] [address]. [address] * (ABNORMAL) POC O2 SAT (10/08/2017 10:04 AM EST) POC O2 Saturation, Arterial 100(H) 95 - 98 % 10/08/2017 10:07 AM EST [facility] Arterial blood specimen (specimen) 10/08/2017 10:04 AM EST 10/08/2017 10:07 AM EST Tami Richardson MD POINT OF CARE TEST ORDERABLES F inal Result Performing Organization Address [facility] Co de Phone Number [facility] [address] [place] [address]. [address] * POC Base Excess (10/08/2017 10:04 AM EST) POC Base Excess, Arterial -2 -2 - 3 mmol/L 10/08/2017 10:07 AM EST [facility] Arterial blood specimen (specimen) 10/08/2017 10:04 AM EST 10/08/2017 10:07 AM EST Tami Richardson MD POINT OF CARE TEST ORDERABLES F inal Result [facility] [address] [place] [address]. [address] * POC HCO3 (10/08/2017 10:04 AM EST) POC HCO3, Arterial 23 22 - 26 mmol/L 10/08/2017 10:07 AM EST [facility] Arterial blood specimen (specimen) 10/08/2017 10:04 AM EST 10/08/2017 10:07 AM EST Tami Richardson MD POINT OF CARE TEST ORDERABLES F inal Result Performing Organization Address City/[facility] Co de Phone Number [facility] [address] [facility] * (ABNORMAL) POC Chloride (10/08/2017 10:04 AM EST) POC Chloride 115(H) 98 - 110 mmol/L 10/08/2017 10:07 AM EST [facility] Arterial blood specimen (specimen) 10/08/2017 10:04 AM EST 10/08/2017 10:07 AM EST Tami Richardson MD POINT OF CARE TEST ORDERABLES F inal Result Performing Organization Address [facility] de Phone Number [facility] [address] [facility] * (ABNORMAL) POC Lactate (10/08/2017 10:04 AM EST) POC Lactate 3.20(H) 0.50 - 2.20 mmol/L 10/08/2017 10:07 AM EST [facility] Arterial blood specimen (specimen) 10/08/2017 10:04 AM EST 10/08/2017 10:07 AM EST Tami Richardson MD POINT OF CARE TEST ORDERABLES F inal Result Performing Organization Address [facility] Co de Phone Number [facility] [address] [facility] * (ABNORMAL) POC Glucose (10/08/2017 10:04 AM EST) POC Glucose, Arterial 178(H) 70 - 100 mg/dL 10/08/2017 10:07 AM EST [facility] Arterial blood specimen (specimen) 10/08/2017 10:04 AM EST 10/08/2017 10:07 AM EST Tami Richardson MD POINT OF CARE TEST ORDERABLES F inal Result [facility] [address] [facility]. [address] * (ABNORMAL) POC Ionized Calcium (10/08/2017 10:04 AM EST) POC Ionized Calcium 6.50(HH) 4.50 - 5.30 mg/dL 10/08/2017 10:07 AM EST [facility] Arterial blood specimen (specimen) 10/08/2017 10:04 AM EST 10/08/2017 10:07 AM EST us Tami Richardson MD POINT OF CARE TEST ORDERABLES F inal Result Performing Organization Address [facility] Co de Phone Number [facility] [address] [place] [address]. [address] * POC Potassium (10/08/2017 10:04 AM EST) POC Potassium 4.5 3.5 - 5.3 mmol/L 10/08/2017 10:07 AM EST [facility] Arterial blood specimen (specimen) 10/08/2017 10:04 AM EST 10/08/2017 10:07 AM EST us Tami Richardson MD POINT OF CARE TEST ORDERABLES F inal Result Performing Organization Address [facility] Co de Phone Number [facility] [address] [place] [address]. [address] * (ABNORMAL) POC Sodium (10/08/2017 10:04 AM EST) POC Sodium 149(H) 136 - 146 mmol/L 10/08/2017 10:07 AM EST [facility] Arterial blood specimen (specimen) 10/08/2017 10:04 AM EST 10/08/2017 10:07 AM EST us Tami Richardson MD POINT OF CARE TEST ORDERABLES F inal Result Performing Organization Address City/[facility]/ZIP Co de Phone Number [facility] [address] [place] [address]. [address] * (ABNORMAL) POC PO2 (10/08/2017 10:04 AM EST) POC pO2, Arterial 170(H) 80 - 100 mm Hg 10/08/2017 10:07 AM EST [facility] Arterial blood specimen (specimen) 10/08/2017 10:04 AM EST 10/08/2017 10:07 AM EST Tami Richardson MD POINT OF CARE TEST ORDERABLES F inal Result Performing Organization Address City/[facility]/ZIP Co de Phone Number [facility] [address] [facility]. [address] * POC PCO2 (10/08/2017 10:04 AM EST) POC pCO2, Arterial 37 35 - 45 mm Hg 10/08/2017 10:07 AM EST [facility] Arterial blood specimen (specimen) 10/08/2017 10:04 AM EST 10/08/2017 10:07 AM EST Tami Richardson MD POINT OF CARE TEST ORDERABLES F inal Result Performing Organization Address City/[facility] Co de Phone Number [facility] [address] [place] [address]. [address] * POC pH (10/08/2017 10:04 AM EST) POC pH, Arterial 7.39 7.35 - 7.45 10/08/2017 10:07 AM EST [facility] Arterial blood specimen (specimen) 10/08/2017 10:04 AM EST 10/08/2017 10:07 AM EST Tami Richardson MD POINT OF CARE TEST ORDERABLES F inal Result Performing Organization Address City/[facility] Co de Phone Number [facility] [address] [place] [address]. [address] * (ABNORMAL) POC INR (10/08/2017 9:59 AM EST) Prothrombin Time INR, POC 1.6(H) 0.8 - 1.4 10/11/2017 6:44 AM EST [facility] Comment: Test results may vary using [...] ORDERABLES F inal Result Performing Organization Address [facility] de Phone Number [facility] [address] [facility]. [address] * (ABNORMAL) POC Hemocue Hemoglobin (10/08/2017 9:05 AM EST) Pathologist [facility] Hemoglobin, Hemocue 8.8(L) 13.2 - 17.1 g/dL 10/08/2017 12:38 PM EST [facility] Whole blood specimen (specimen) 10/08/2017 9:05 AM EST 10/08/2017 12:38 PM EST Tami Richardson MD POINT OF CARE TEST ORDERABLES F inal Result Performing Organization Address [facility] de Phone Number [facility] [address] [facility]. [address] * (ABNORMAL) CBC (10/08/2017 9:03 AM EST) WBC 2.8(L) 3.8 - 10.8 10E3/uL 10/08/2017 9:15 AM EST [facility] RBC 2.38(L) 4.20 - 5.80 10E6/uL 10/08/2017 9:15 AM EST [facility] Hemoglobin 9.1(L) 13.2 - 17.1 g/dL 10/08/2017 9:15 AM EST [facility] Hematocrit 25.4(L) 38.5 - 50.0 % 10/08/2017 9:15 AM EST [facility] MCV 106.8(H) 80.0 - 100.0 fL 10/08/2017 9:15 AM EST [facility] MCH 38.3(H) 27.0 - 33.0 pg 10/08/2017 9:15 AM EST [facility] MCHC 35.9 32.0 - 36.0 g/dL 10/08/2017 9:15 AM EST [facility] RDW 16.3(H) 11.0 - 15.0 % 10/08/2017 9:15 AM EST [facility] Platelets 108(L) 140 - 400 10E3/uL 10/08/2017 9:15 AM [facility] MPV 7.4(L) 7.5 - 11.5 fL 10/08/2017 9:15 AM EST [facility] Whole blood specimen (specimen) 10/08/2017 9:03 AM EST 10/08/2017 9:11 AM EST Marino Izaguirre MD LAB BLOOD ORDERABLES Final Resul t Performing Organization Address City/[facility]/ZIP Co de Phone Number [facility] [address] * (ABNORMAL) Fibrinogen (10/08/2017 9:03 AM EST) Fibrinogen 188(L) 218 - 406 mg/dL 10/08/2017 9:36 AM EST [facility] Plasma specimen (specimen) 10/08/2017 9:03 AM EST 10/08/2017 9:11 AM EST Marino Izaguirre MD LAB BLOOD ORDERABLES Final Resul t [facility] [address] [facility]. [address] * (ABNORMAL) Protime-INR (10/08/2017 9:03 AM EST) Protime 20.6(H) 11.8 - 14.8 seconds 10/08/2017 9:35 AM EST [facility] Comment:Effective 07/12/2017 , the PT and PTMIX reference range has changed from 11.6 -14.4 sec to 11.8-14.8 sec. INR 1.7(H) 0.9 - 1.1 10/08/2017 9:35 AM EST [facility] Comment: RECOMMENDED THERAPEUTIC RANGES USING INR : ?Stable oral anticoagulant therapy: ? 2.0 - 3.0 ?Mechanical prosthetic heart valve: ? 2.5 - 3.5 ?Recurrent acute myocardial infarction: ? 2.5 - 3.5 Plasma specimen (specimen) 10/08/2017 9:03 AM EST 10/08/2017 9:11 AM EST us Marino Izaguirre MD LAB BLOOD ORDERABLES Final Resul t Performing Organization Address City/State/[facility] Co de Phone Number [facility] [address] * Rapid TEG (10/08/2017 9:03 AM EST) TEG ACT 97.0 86.0 - 118.0 seconds 10/08/2017 10:33 AM EST [facility] Comment:The TEG ACT test par ameter is approved to monitor heparin in adult patients. It has not been approved by the FDA for other uses. TEG R Time 30.0 22 - 44 seconds 10/08/2017 10:33 AM EST [facility] TEG Time 55.0 34 - 138 seconds 10/08/2017 10:33 AM EST [facility] TEG Angle 80.0 64 - 80 degrees 10/08/2017 10:33 AM EST [facility] TEG Max Amplitude 58.0 52 - 71 mm 10/08/2017 10:33 AM EST [facility] TEG Lysis 30 0.0 % 10/08/2017 10:33 AM EST [facility] Whole blood specimen (specimen) 10/08/2017 9:03 AM EST 10/08/2017 9:11 AM EST Marino Izaguirre MD LAB BLOOD ORDERABLES Final Resul t [facility] [address] [facility]. [address] * POC Sample Type (10/08/2017 9:03 AM EST) POC Sample Type Arterial 10/08/2017 9:05 AM EST [facility] Arterial blood specimen (specimen) 10/08/2017 9:03 AM EST 10/08/2017 9:05 AM EST Tami Richardson MD POINT OF CARE TEST ORDERABLES F inal Result Performing Organization Address [facility] Co de Phone Number [facility] [address] [facility]. [address] * POC Anion Gap (10/08/2017 9:03 AM EST) POC Anion Gap, Arterial 12 3 - 16 mmol/L 10/08/2017 9:05 AM EST [facility] Arterial blood specimen (specimen) 10/08/2017 9:03 AM EST 10/08/2017 9:05 AM EST Tami Richardson MD POINT OF CARE TEST ORDERABLES F inal Result Performing Organization Address City/[facility]/ZIP Co de Phone Number [facility] [address] * POC TCO2 (10/08/2017 9:03 AM EST) POC TCO2, Arterial 25 23 - 27 mmol/L 10/08/2017 9:05 AM EST [facility] Arterial blood specimen (specimen) 10/08/2017 9:03 AM EST 10/08/2017 9:05 AM EST us Tami Richardson MD POINT OF CARE TEST ORDERABLES F inal Result [facility] [address] [facility]. [address] * (ABNORMAL) POC O2 SAT (10/08/2017 9:03 AM EST) POC O2 Saturation, Arterial 100(H) 95 - 98 % 10/08/2017 9:05 AM EST [facility] Arterial blood specimen (specimen) 10/08/2017 9:03 AM EST 10/08/2017 9:05 AM EST Tami Richardson MD POINT OF CARE TEST ORDERABLES F inal Result Performing Organization Address City/[facility]/ZIP Co de Phone Number [facility] [address] [facility]. [address] * POC Base Excess (10/08/2017 9:03 AM EST) POC Base Excess, Arterial -1 -2 - 3 mmol/L 10/08/2017 9:05 AM EST [facility] Arterial blood specimen (specimen) 10/08/2017 9:03 AM EST 10/08/2017 9:05 AM EST Tami Richardson MD POINT OF CARE TEST ORDERABLES F inal Result [facility] [address] [facility]. [address] * POC HCO3 (10/08/2017 9:03 AM EST) POC HCO3, Arterial 24 22 - 26 mmol/L 10/08/2017 9:05 AM EST [facility] Arterial blood specimen (specimen) 10/08/2017 9:03 AM EST 10/08/2017 9:05 AM EST us Tami Richardson MD POINT OF CARE TEST ORDERABLES F inal Result Performing Organization Address City/[facility] Co de Phone Number [facility] [address] [place] [address]. [address] * (ABNORMAL) POC Chloride (10/08/2017 9:03 AM EST) POC Chloride 113(H) 98 - 110 mmol/L 10/08/2017 9:05 AM EST [facility] Arterial blood specimen (specimen) 10/08/2017 9:03 AM EST 10/08/2017 9:05 AM EST us Tami Richardson MD POINT OF CARE TEST ORDERABLES F inal Result Performing Organization Address [facility] Co de Phone Number [facility] [address] [place] [address]. [address] * POC Lactate (10/08/2017 9:03 AM EST) POC Lactate 1.90 0.50 - 2.20 mmol/L 10/08/2017 9:05 AM EST [facility] Arterial blood specimen (specimen) 10/08/2017 9:03 AM EST 10/08/2017 9:05 AM EST us Tami Richardson MD POINT OF CARE TEST ORDERABLES F inal Result Performing Organization Address City/[facility] Co de Phone Number [facility] [address] [place] [address]. [address] * (ABNORMAL) POC Glucose (10/08/2017 9:03 AM EST) POC Glucose, Arterial 176(H) 70 - 100 mg/dL 10/08/2017 9:05 AM EST [facility] Arterial blood specimen (specimen) 10/08/2017 9:03 AM EST 10/08/2017 9:05 AM EST us Tami Richardson MD POINT OF CARE TEST ORDERABLES F inal Result [facility] [address] [facility]. [address] * POC Ionized Calcium (10/08/2017 9:03 AM EST) POC Ionized Calcium 5.00 4.50 - 5.30 mg/dL 10/08/2017 9:05 AM EST [facility] Arterial blood specimen (specimen) 10/08/2017 9:03 AM EST 10/08/2017 9:05 AM EST us Tami Richardson MD POINT OF CARE TEST ORDERABLES F inal Result Performing Organization Address City/[facility]/ZIP Co de Phone Number [facility] [address] [facility]. [address] * POC Potassium (10/08/2017 9:03 AM EST) POC Potassium 4.0 3.5 - 5.3 mmol/L 10/08/2017 9:05 AM EST [facility] Arterial blood specimen (specimen) 10/08/2017 9:03 AM EST 10/08/2017 9:05 AM EST Result Yuri Richardson MD POINT OF CARE TEST ORDERABLES F inal Result Performing Organization Address City/[facility]/ZIP Co de Phone Number [facility] [address] [facility]. [address] * (ABNORMAL) POC Sodium (10/08/2017 9:03 AM EST) POC Sodium 149(H) 136 - 146 mmol/L 10/08/2017 9:05 AM EST [facility] Arterial blood specimen (specimen) 10/08/2017 9:03 AM EST 10/08/2017 9:05 AM EST us Tami Richardson MD POINT OF CARE TEST ORDERABLES F inal Result [facility] [address] * (ABNORMAL) POC PO2 (10/08/2017 9:03 AM EST) POC pO2, Arterial 319(H) 80 - 100 mm Hg 10/08/2017 9:05 AM EST [facility] Arterial blood specimen (specimen) 10/08/2017 9:03 AM EST 10/08/2017 9:05 AM EST Tami Richardson MD POINT OF CARE TEST ORDERABLES F inal Result [facility] [address] [place] [address]. [address] * POC PCO2 (10/08/2017 9:03 AM EST) POC pCO2, Arterial 38 35 - 45 mm Hg 10/08/2017 9:05 AM EST [facility] Arterial blood specimen (specimen) 10/08/2017 9:03 AM EST 10/08/2017 9:05 AM EST Tami Richardson MD POINT OF CARE TEST ORDERABLES F inal Result Performing Organization Address City/[facility]/ZIP Co de Phone Number [facility] [address] [place] [address]. [address] * POC pH (10/08/2017 9:03 AM EST) POC pH, Arterial 7.41 7.35 - 7.45 10/08/2017 9:05 AM EST [facility] Arterial blood specimen (specimen) 10/08/2017 9:03 AM EST 10/08/2017 9:05 AM EST Tami Richardson MD POINT OF CARE TEST ORDERABLES F inal Result Performing Organization Address City/[facility] Co de Phone Number [facility] [address] [place] [address]. [address] * Prepare RBC, leukoreduced (10/08/2017 9:01 AM EST) Product Code R2644N12 HCLL Unit Number [id number] HCLL Dispense Status Released from [employer]match_RE HCLL Blood Expiration Date HCLL Coding System [id number] HCLL Product Code C6479I07 HCLL Unit Number [id number] HCLL Dispense Status Released from [employer] HCLL Blood Expiration Date HCLL Coding System TPCS524 HCLL Product Code M3599C72 HCLL Unit Number [id number] HCLL Dispense Status Released from [employer] HCLL Blood Expiration Date HCLL Coding System QIKD635 HCLL Product Code F3648U10 HCLL Unit Number [id number] HCLL Dispense Status Released from [employer] HCLL Blood Expiration Date HCLL Coding System FYMD988 HCLL Product Code K3466S36 HCLL Unit Number [id number] HCLL Dispense Status Released from [employer] HCLL Blood Expiration Date HCLL Coding System FGOR915 HCLL Product Code E6096H85 HCLL Unit Number [id number] HCLL Dispense Status Released from [employer]_RE HCLL Blood Expiration Date HCLL Coding System MERN236 HCLL Product Code V1272M25 HCLL Unit Number [id number] HCLL Dispense Status Released from [employer] HCLL Blood Expiration Date HCLL Coding System [id number] HCLL us Attending Provider Unknown BLOOD BANK PRODUCT OR DERABLES Final Result HCLL * POC INR (10/08/2017 9:00 AM EST) [facility] Prothrombin Time INR, POC 1.4 0.8 - 1.4 10/11/2017 6:44 AM EST [facility] Comment: Test results may vary using different testing platforms. Serial result monitoring should be performed using the same methodology. RECOMMENDED THERAPEUTIC RANGES USING INR : ?Stable oral anticoagulant therapy: ? 2.0 - 3.0 ?Mechanical prosthetic heart valve: ? 2.5 - 3.5 ?Recurrent acute myocardial infarction: ? 2.5 - 3.5 10/08/2017 9:00 AM EST 10/11/2017 6:43 AM EST Result [facility] Tami Richardson MD POINT OF CARE TEST ORDERABLES F inal Result Performing Organization Address [facility] de Phone Number [facility] [address] [facility]. [address] * (ABNORMAL) POC Glucose Monitoring Device (10/08/2017 6:13 AM EST) POC Glucose Monitoring Device 210(H) 70 - 100 mg/dL 10/08/2017 6:23 AM EST [facility] Blood specimen (specimen) 10/08/2017 6:13 AM EST 10/08/2017 6:23 AM EST Result [facility] Tami Richardson MD POINT OF CARE TEST ORDERABLES F inal Result Performing Organization Address [facility] de Phone Number [facility] [address] [facility] * Antibody identification (10/08/2017 4:57 AM EST) Antibody Id. #1 Anti-C 10/08/2017 4:57 AM EST [facility] Antibody Id. #2 Anti-D 10/08/2017 4:57 AM EST [facility] Blood specimen (specimen) 10/08/2017 4:57 AM EST 10/08/2017 4:57 AM EST Jack Delgado MD BLOOD BANK TEST ORDER ASHISH Final Result [facility] [address] * ELIUD Anti-IgG (10/08/2017 4:54 AM EST) ELIUD IgG Negative 10/08/2017 4:54 AM EST [facility] Blood specimen (specimen) 10/08/2017 4:54 AM EST 10/08/2017 4:54 AM EST Jack Delgado MD BLOOD BANK TEST ORDER ASHISH Final Result Performing Organization Address [facility] Co de Phone Number [facility] [address] [facility] * ECG 12 lead (MUSE) (10/08/2017 1:03 AM EST) 10/08/2017 1:03 AM EST Narrative [facility] - 10/08/2017 10:41 AM EST Ventricular Rate: ??83 ??BPM Atrial Rate: ??83 ??BPM P-R Interval: ??170 ??ms QRS Duration: ??102 ??ms QT: ??414 ??ms QTc: ??487 ??ms P Graham: ??57 ??degrees R Graham: ??66 ??degrees T Graham: ??57 ??degrees Diagnosis Line: ??NORMAL SINUS RHYTHM ^ CANNOT RULE OUT INFERIOR INFARCT , AGE UNDETERMINED ^ PROLONGED QT ^ ABNORMAL ECG ^ No previous ECGs available ^ Confirmed by ANANDA LOVELL MD ([id number]) on 10/08/2017 10:40:57 AM us Jack Delgado MD ECG ORDERABLES Final Result Performing Organization Address City/[facility] Co de Phone Number [facility] [address] [facility] [place] [address] * X-ray Chest PA and Lateral (10/08/2017 [...] have been received and transported to the [facility] [place] at [address] [place] [address]. The [facility] will report results directly to the client. 10/25/2017 11:03 AM EDT [facility] Comment:Testing performed by [facility], [facility], [address] [place] [address]. The [facility] report has been forwarded to the appropriate ordering location. Please refer to this report for patient results. Serum specimen (specimen) 10/08/2017 12:26 AM EST 10/25/2017 11:03 AM EDT Narrative [facility] - 10/25/2017 11:03 AM EDT Please store serum - do not run. Jack Delgado MD LAB BLOOD ORDERABLES Final Result Performing Organization Address [facility]/ZIP Co de Phone Number [facility] [address] [place] * Rapid TEG (10/08/2017 12:26 AM EST) TEG ACT 105.0 86.0 - 118.0 seconds 10/08/2017 2:26 AM EST [facility] Comment:The TEG ACT test par ameter is approved to monitor heparin in adult patients. It has not been approved by the FDA for other uses. TEG R Time 35.0 22 - 44 seconds 10/08/2017 2:26 AM EST [facility] TEG Time 70.0 34 - 138 seconds 10/08/2017 2:26 AM EST [facility] TEG Angle 78.3 64 - 80 degrees 10/08/2017 2:26 AM EST [facility] TEG Max Amplitude 61.8 52 - 71 mm 10/08/2017 2:26 AM EST [facility] TEG Lysis 30 0.0 % 10/08/2017 2:26 AM EST [facility] Whole blood specimen (specimen) 10/08/2017 12:26 AM EST 10/08/2017 12:50 AM EST Jack Delgado MD LAB BLOOD ORDERABLES Final Result Performing Organization Address [facility] Co de Phone Number [facility] [address] * (ABNORMAL) [place] Virus VCA IgG Ab (10/08/2017 12:26 AM EST) EBV VCA IgG Positive( AA) Negative 10/08/2017 8:56 AM EST [facility] Comment:Presence of detectab le VCA IgG antibodies. A positive result indicates current or past exposure to [place] virus. EBV IGG NUM 399.00(H) 0.00 - 17.99 U/mL 10/08/2017 8:56 AM EST [facility] Serum specimen (specimen) 10/08/2017 12:26 AM EST 10/08/2017 12:35 AM EST Jack Delgado MD LAB BLOOD ORDERABLES Final Result [facility] [address]. [address] * CMV IgG Antibody (10/08/2017 12:26 AM EST) CMV IgG Negative Negative 10/08/2017 8:55 AM EST [facility] CMV IGG NUM 0.20 0.00 - 0.59 U/mL 10/08/2017 8:55 AM EST [facility] Serum specimen (specimen) 10/08/2017 12:26 AM EST 10/08/2017 12:35 AM EST Jack Delgado MD LAB BLOOD ORDERABLES Final Result Performing Organization Address [facility] Co de Phone Number [facility] [address] [facility] * HIV 1+2 Antibody/Antigen with Reflex (10/08/2017 12:26 AM EST) HIV 1+2 AB/AGN Nonreactive Nonreactive 10/08/2017 1:36 AM EST [facility] Serum specimen (specimen) 10/08/2017 12:26 AM EST 10/08/2017 12:35 AM EST Narrative [facility] - 10/08/2017 1:36 AM EST HIV-1 p24 Antigen and HIV-1/HIV-2 Antibody not detected. Jack Delgado MD LAB BLOOD ORDERABLES Final Result Performing Organization Address City/[facility]/ZIP Co de Phone Number [facility] [address] [facility]. [address] * Hepatitis C Antibody (10/08/2017 12:26 AM EST) HCV Ab Nonreactive Nonreactive 10/08/2017 1:35 AM EST [facility] Comment:Health Department no tified in accordance with reportable infectious disease guidelines. HCVAB Number 0.15 0.00 - 0.79 S/CO 10/08/2017 1:35 AM EST [facility] Serum specimen (specimen) 10/08/2017 12:26 AM EST 10/08/2017 12:35 AM EST [facility] - 10/08/2017 1:35 AM EST Antibodies to HCV not detected; does not exclude the possibility of exposure to HCV. Jack Delgado MD LAB BLOOD ORDERABLES Final Result Performing Organization Address [facility] Co de Phone Number [facility] [address] [facility]. [address] * Hepatitis B Core Antibody (10/08/2017 12:26 AM EST) Hep B Core Total Ab Nonreactive Nonreactive 10/08/2017 1:32 AM EST [facility] Comment:Health Department no tified in accordance with reportable infectious disease guidelines. Serum specimen (specimen) 10/08/2017 12:26 AM EST 10/08/2017 12:35 AM EST [facility] - 10/08/2017 1:32 AM EST A nonreactive final interpretation indicates that anti-HBc antibodies were not detected in the sample; it is possible that the individual is not infected with HBV. Jack Delgado MD LAB BLOOD ORDERABLES Final Result Performing Organization Address [facility] de Phone Number [facility] [address] * Hepatitis B surface antigen (10/08/2017 12:26 AM EST) Hep B Surface Ag Nonreactive Nonreactive 10/08/2017 1:33 AM EST [facility] Comment:Health Department no tified in accordance with reportable infectious disease guidelines. Serum specimen (specimen) 10/08/2017 12:26 AM EST 10/08/2017 12:35 AM EST [facility] - 10/08/2017 1:33 AM EST Specimen is considered negative for HBsAg. Jack Delgado MD LAB BLOOD ORDERABLES Final Result Performing Organization Address City/[facility] Co de Phone Number [facility] [address] * (ABNORMAL) Vitamin D 25 hydroxy (10/08/2017 12:26 AM EST) Vit D, 25-Hydroxy 19.4(L) 30.0 - 100 ng/mL 10/08/2017 9:44 AM EST [facility] Comment: Vitamin D deficiency has been defined by the [place] [employer] (IOM) and an Endocrine Society [...] Endocrine Society clinical practice guideline. ??JCEM. ??2010; 96(6):1911-30. Serum specimen (specimen) 10/08/2017 12:26 AM EST 10/08/2017 12:35 AM EST Jack Delgado MD LAB BLOOD ORDERABLES Final Result [facility] [address] [place] [facility]. [address] * Antibody Screen (10/08/2017 12:26 AM EST) Pathologist [facility] Antibody Screen Positive 10/08/2017 2:01 AM EST [facility] Blood specimen (specimen) 10/08/2017 12:26 AM EST 10/08/2017 12:43 AM EST Narrative [facility] - 10/08/2017 2:55 AM EST Testing performed by [facility] Transfusion Service Jack Delgado MD BLOOD BANK TEST ORDER ASHISH Final Result [facility] [address] [place] [facility]. [address] * ABO/Rh (10/08/2017 12:26 AM EST) ABO Grouping O 10/08/2017 2:01 AM EST [facility] Rh Type Negative 10/08/2017 2:01 AM EST [facility] Blood specimen (specimen) 10/08/2017 12:26 AM EST 10/08/2017 12:43 AM EST Jack Delgado MD BLOOD BANK TEST ORDER ASHISH Final Result [facility] [address] [facility] [place] [address], [facility] * (ABNORMAL) Hepatic Function Panel (10/08/2017 12:26 AM EST) Total Bilirubin 5.8(H) 0.0 - 1.5 mg/dL 10/08/2017 1:04 AM EST [facility] Bilirubin, Direct 1.50(H) 0.00 - 0.40 mg/dL 10/08/2017 1:04 AM EST [facility] AST 52(H) 13 - 39 U/L 10/08/2017 1:04 AM [facility] ALT 24 7 - 52 U/L 10/08/2017 1:04 AM [facility] Alkaline Phosphatase 148(H) 36 - 125 U/L 10/08/2017 1:04 AM [facility] Total Protein 5.9(L) 6.4 - 8.9 g/dL 10/08/2017 1:04 AM EST [facility] Albumin 3.0(L) 3.5 - 5.7 g/dL 10/08/2017 1:04 AM [facility] Bilirubin, Indirect 4.30(H) 0.00 - 1.10 mg/dL 10/08/2017 1:04 AM EST [facility] Plasma specimen (specimen) 10/08/2017 12:26 AM EST 10/08/2017 12:35 AM EST Jack Delgado MD LAB BLOOD ORDERABLES Final Result [facility] [address] [facility]. [address] * (ABNORMAL) Renal Function Panel w/EGFR (10/08/2017 12:26 AM EST) Sodium 142 133 - 146 mmol/L 10/08/2017 1:04 AM [facility] Potassium 4.3 3.5 - 5.3 mmol/L 10/08/2017 1:04 AM [facility] Chloride 109 98 - 110 mmol/L 10/08/2017 1:04 AM [facility] CO2 23 21 - 33 mmol/L 10/08/2017 1:04 AM [facility] Anion Gap 10 3 - 16 mmol/L 10/08/2017 1:04 AM [facility] BUN 21 7 - 25 mg/dL 10/08/2017 1:04 AM [facility] Creatinine 1.57(H) 0.60 - 1.30 mg/dL 10/08/2017 1:04 AM [facility] Glucose 370(H) 70 - 100 mg/dL 10/08/2017 1:04 AM [facility] Calcium 9.9 8.6 - 10.3 mg/dL 10/08/2017 1:04 AM [facility] Phosphorus 2.2 2.1 - 4.7 mg/dL 10/08/2017 1:04 AM [facility] Albumin 3.0(L) 3.5 - 5.7 g/dL 10/08/2017 1:04 AM [facility] Osmolality, Calculated 312(H) 278 - 305 mOsm/kg 10/08/2017 1:04 AM [facility] eGFR AA CKD-EPI 62 See note. 8 1:04 AM [facility] eGFR NONAA CKD-EPI 53 See note. 10/08/2017 1:04 AM [facility] Plasma specimen (specimen) 10/08/2017 12:26 AM EST 10/08/2017 12:35 AM EST [facility] - 10/08/2017 1:04 AM EST As [...] equation to estimate glomerular filtration rate. ??Jennifer Pelt [employer] Med. 2009:150(9):604-12 Jack Delgado MD LAB BLOOD ORDERABLES Final Result Performing Organization Address [facility] Co de Phone Number [facility] [address] [place] [facility]. [address] * Hemoglobin A1c (10/08/2017 12:26 AM EST) Hemoglobin A1C 5.5 4.8 - 6.4 % 10/08/2017 1:03 AM EST [facility] Comment: Hemoglobin (Hb) A1C Normal: ??4.8 - 5.6% Increased Risk for Diabetes: 5.7 - 6.4% Diagnostic Diabetes: ? >/= ?? 6.5% (Drawn on 2 separate occasions) Glycemic Control for Adults with Diabetes: <7.0% (DCCT / NGSP) Whole blood specimen (specimen) 10/08/2017 12:26 AM EST 10/08/2017 12:35 AM EST Jack Delgado MD LAB BLOOD ORDERABLES Final Result Performing Organization Address [facility] de Phone Number [facility] [address] [place] [facility]. [address] * (ABNORMAL) APTT, NO ANTICOAGULANT (10/08/2017 12:26 AM EST) aPTT 38.8(H) 25.5 - 35.0 seconds 10/08/2017 1:03 AM EST [facility] Plasma specimen (specimen) 10/08/2017 12:26 AM EST 10/08/2017 12:35 AM EST Jack Delgado MD LAB BLOOD ORDERABLES Final Result Performing Organization Address [facility] Co de Phone Number [facility] [address] [facility]. [address] * (ABNORMAL) Protime-INR (10/08/2017 12:26 AM EST) Protime 18.9(H) 11.8 - 14.8 seconds 10/08/2017 1:02 AM EST [facility] Comment:Effective 07/12/2017 , the PT and PTMIX reference range has changed from 11.6 -14.4 sec to 11.8-14.8 sec. INR 1.6(H) 0.9 - 1.1 10/08/2017 1:02 AM EST [facility] Comment: RECOMMENDED THERAPEUTIC RANGES USING INR : ?Stable oral anticoagulant therapy: ? 2.0 - 3.0 ?Mechanical prosthetic heart valve: ? 2.5 - 3.5 ?Recurrent acute myocardial infarction: ? 2.5 - 3.5 Plasma specimen (specimen) 10/08/2017 12:26 AM EST 10/08/2017 12:35 AM EST Jack Delgado MD LAB BLOOD ORDERABLES Final Result [facility] [address] * (ABNORMAL) Differential (10/08/2017 12:26 AM EST) Neutrophils Relative 60.6 40.0 - 80.0 % 10/08/2017 12:43 AM EST [facility] Lymphocytes Relative 24.5 15.0 - 45.0 % 10/08/2017 12:43 AM EST [facility] Monocytes Relative 10.3 0.0 - 12.0 % 10/08/2017 12:43 AM EST [facility] Eosinophils Relative 4.4 0.0 - 8.0 % 10/08/2017 12:43 AM EST [facility] Basophils Relative 0.2 0.0 - 1.0 % 10/08/2017 12:43 AM EST [facility] nRBC 0 0 - 0 /100 WBC 10/08/2017 12:43 AM EST [facility] Neutrophils Absolute 1,636 1,500 - 7,800 /uL 10/08/2017 12:43 AM EST [facility] Lymphocytes Absolute 662(L) 850 - 3,900 /uL 10/08/2017 12:43 AM EST [facility] Monocytes Absolute 278 200 - 950 /uL 10/08/2017 12:43 AM EST [facility] Eosinophils Absolute 119 15 - 500 /uL 10/08/2017 12:43 AM [facility] Basophils Absolute 5 0 - 200 /uL 10/08/2017 12:43 AM [facility] Whole blood specimen (specimen) 10/08/2017 12:26 AM EST 10/08/2017 12:35 AM EST Jack Delgado MD LAB BLOOD ORDERABLES Final Result Performing Organization Address City/State/[facility] Co de Phone Number [facility] [address] [place] [address], [facility] * (ABNORMAL) CBC (10/08/2017 12:26 AM EST) WBC 2.7(L) 3.8 - 10.8 10E3/uL 10/08/2017 12:43 AM [facility] RBC 2.56(L) 4.20 - 5.80 10E6/uL 10/08/2017 12:43 AM [facility] Hemoglobin 10.1(L) 13.2 - 17.1 g/dL 10/08/2017 12:43 AM [facility] Hematocrit 27.7(L) 38.5 - 50.0 % 10/08/2017 12:43 AM [facility] MCV 108.2(H) 80.0 - 100.0 fL 10/08/2017 12:43 AM [facility] MCH 39.3(H) 27.0 - 33.0 pg 10/08/2017 12:43 AM [facility] MCHC 36.4(H) 32.0 - 36.0 g/dL 10/08/2017 12:43 AM EST [facility] RDW 16.6(H) 11.0 - 15.0 % 10/08/2017 12:43 AM EST [facility] Platelets 129(L) 140 - 400 10E3/uL 10/08/2017 12:43 AM EST [facility] MPV 7.9 7.5 - 11.5 fL 10/08/2017 12:43 AM EST [facility] Whole blood specimen (specimen) 10/08/2017 12:26 AM EST 10/08/2017 12:35 AM EST us Jack Delgado MD LAB BLOOD ORDERABLES Final Result Performing Organization Address City/State/[facility] Co de Phone Number [facility] [address] [place] [address] * Surgical Pathology Exam (10/08/2017 12:00 AM EST) 10/08/2017 10/09/2017 Narrative [facility] - 10/08/2017 12:00 AM EST CASE: [id number] PATIENT: LEONCIO ROLLINS Clinical History: ?? Transplant liver Pre-Operative Diagnosis: ESLD Post-Operative Diagnosis: ? same Specimen(s) Submitted: ?? A. [place] liver; B. Recipient gallbladder; C. Liver biopsy CPT Code(s): ?? 39527 X 1; 96232 X 1; 74894 X 1; 74684 X 1 Additional Information: FINAL DIAGNOSIS: A. Liver, [place], explant: ? - ??Cirrhosis with mild non-specific [...] Received in formalin labeled Rollins Leoncio and [place] liver , is a 1410 total hepatectomy [...] duct is grossly obstructed by calculi. ? Dredge Engineer sections are submitted in [facility]- A1-A8 as follows: ?A1: ??Vasculature and cystic duct resection margins, en face. ?A2-A3: ??Dredge Engineer sections of right lobe. ?A4: ??Caudate lobe. ?A5: ??Quadrate lobe. ?A6-A7: ??Dredge Engineer sections of right lobe. A8: ??Dredge Engineer sections of neck, body, and fundus of gallbladder. (NAVNEET Claire (ASCP)/joyce) B. ?? Received in formalin labeled RollinsLeoncio and recipient gallbladder , is an intact [...] ??The cystic duct is free of obstruction. Dredge Engineer sections are submitted in cassettes [facility] B1 as follows: B1: ??Cystic duct margin, en face, and sales representative canvas products sections of neck, body, and fundus. ??(NAVNEET Claire (ASCP)/mjs) C. ?? Received in formalin labeled RollinsLeoncio and liver biopsy , is a single gaytan-brown cylindrical soft tissue (2.0 cm in length x 0.1 cm in diameter). ??The specimen is bisected and submitted entirely in cassettes [address] C1-C2 with liver txp written on the side of cassette C1. (NAVNEET Claire (ASCP)/s) Microscopic Description: Parts A-C: 15 HE slides examined. Part C: Trichrome stain examined (negative for increased fibrosis). I, the attending pathologist, have personally reviewed all prosector/resident work and pathology slides to determine final diagnosis. Control Materials Reacted Appropriately. Final Diagnosis performed by PEYMAN HAYES M.D. 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 A copper stain shows patchy mild copper deposition within periseptal hepatocytes. A PAS-D stain does not show PAS-D positive globules within hepatocytes. Addendum #1 performed by PEYMAN HAYES M.D. Pathologist Electronically signed 10/16/2017 03:14:36 PM The Pathologist signing this report is located at [facility], [address] [place] [address], [facility] [phone], CLIA ID: [id number] us David Mendenhall MD PATHOLOGY/CYTOLOGY ORDERABLES E dited Result - Final [facility] [address] [facility] [place] [address] * Prepare Fresh Frozen Plasma, 10 Units (10/07/2017 11:03 PM EST) Product Code O4677B30 HCLL Unit Number [id number] HCLL Dispense Status Released from Crossmatch_RE HCLL Blood Expiration Date HCLL Coding System HYVQ541 HCLL Product Code P4335P74 HCLL Unit Number [id number] HCLL Dispense Status Presumed Transfused_PT HCLL Blood Expiration Date HCLL Coding System WMMJ005 HCLL Product Code I6562Q90 HCLL Unit Number [id number] HCLL Dispense Status Presumed Transfused_PT HCLL Blood Expiration Date HCLL Coding System YPGB963 HCLL Product Code X0006L25 HCLL Unit Number [id number] HCLL Dispense Status Presumed Transfused_PT HCLL Blood Expiration Date HCLL Coding System XUHB603 HCLL Product Code U3138O98 HCLL Unit Number [id number] HCLL Dispense Status Presumed Transfused_PT HCLL Blood Expiration Date HCLL Coding System GGEV262 HCLL Product Code S9745E73 HCLL Unit Number [id number] HCLL Dispense Status Presumed Transfused_PT HCLL Blood Expiration Date HCLL Coding System MXAL166 HCLL Product Code A8579N21 HCLL Unit Number [id number] HCLL Dispense Status Released from Crossmatch_RE HCLL Blood Expiration Date HCLL Coding System YRRK952 HCLL Product Code S9685Q93 HCLL Unit Number [id number] HCLL Dispense Status Released from Crossmatch_RE HCLL Blood Expiration Date HCLL Coding System EGOM054 HCLL Product Code S9270P83 HCLL Unit Number [id number] HCLL Dispense Status Released from Crossmatch_RE HCLL Blood Expiration Date HCLL Coding System SEMR281 HCLL Product Code S5399W38 HCLL Unit Number [id number] HCLL Dispense Status Released from Crossmatch_RE HCLL Blood Expiration Date HCLL Coding System GYTW963 HCLL Specimen from blood bag from blood product (specimen) us Jack Delgado MD BLOOD BANK PRODUCT OR DERABLES Final Result [facility] * Prepare Platelets, leukoreduced, 10 Units (10/07/2017 11:03 PM EST) Product Code D4545N23 HCLL Unit Number [id number] HCLL Dispense Status Presumed Transfused_PT HCLL Blood Expiration Date [id number] HCLL Coding System MUOV704 HCLL Specimen from blood bag from blood product (specimen) Jack Delgado MD BLOOD BANK PRODUCT OR DERABLES Final Result [facility] * Prepare RBC, leukoreduced, 10 Units (10/07/2017 11:03 PM EST) Product Code A0156C19 HCLL Unit Number [id number] HCLL Dispense Status Released from Crossmatch_RE HCLL Blood Expiration Date HCLL Coding System LFJE497 HCLL Product Code Q4803Q49 HCLL Unit Number [id number] HCLL Dispense Status Presumed Transfused_PT HCLL Blood Expiration Date HCLL Coding System DSUN700 HCLL Product Code I3733H88 HCLL Unit Number [id number] HCLL Dispense Status Released from Crossmatch_RE HCLL Blood Expiration Date HCLL Coding System JHGR576 HCLL Product Code T1781J48 HCLL Unit Number [id number] HCLL Dispense Status Presumed Transfused_PT HCLL Blood Expiration Date HCLL Coding System YDOV367 HCLL Product Code U1159F77 HCLL Unit Number [id number] HCLL Dispense Status Released from Crossmatch_RE HCLL Blood Expiration Date HCLL Coding System KWWF810 HCLL Product Code O4319A97 HCLL Unit Number [id number] HCLL Dispense Status Released from Crossmatch_RE HCLL Blood Expiration Date HCLL Coding System DWQT683 HCLL Product Code P3923Y30 HCLL Unit Number [id number] HCLL Dispense Status Released from Crossmatch_RE HCLL Blood Expiration Date HCLL Coding System VILP736 HCLL Product Code O4457Z02 HCLL Unit Number [id number] HCLL Dispense Status Released from Crossmatch_RE HCLL Blood Expiration Date HCLL Coding System MXEP222 HCLL Product Code M0336C31 HCLL Unit Number [id number] HCLL Dispense Status Released from Crossmatch_RE HCLL Blood Expiration Date HCLL Coding System DZRB469 HCLL Product Code Q6430W20 HCLL Unit Number [id number] HCLL Dispense Status Released from Crossmatch_RE HCLL Blood Expiration Date HCLL Coding System WJOE511 HCLL Specimen from blood bag from blood product (specimen) us Jack Delgado MD BLOOD BANK PRODUCT OR DERABLES Final Result [facility] * PERFUSION RECORD - SCAN (10/07/2017 12:00 AM EST) us Scanning [facility] SCAN DOCS - NO RESULTS Final Res ult * LAB (10/07/2017 12:00 AM EST) us Scanning [facility] NURSING INFORMATIONAL/COMMUNICAT ION ORDERABLES Final Result * EKG - SCAN (10/07/2017 12:00 AM EST) us Scanning [facility] SCAN DOCS - NO RESULTS Final Res [...] Given 10/25/2017 8:13 AM EDT 650 mg albumin human bottle 5% Continuous, Starting on 10/08/17 at 1030, Intra-op New Bag 10/08/2017 10:09 AM EST 12.5 g Ot her aspirin chewable tablet 81 mg 81 mg, [...] AM EDT 500 mg carvedilol (COREG) tablet 50 mg 50 mg, Oral, 2 times daily, First dose (after last modification) on Mon10/24/17 at 0900 Given 10/27/2017 8:52 AM EDT 50 mg Given 10/26/2017 9:05 PM EDT 50 mg Given 10/26/2017 9:27 AM EDT 50 mg cloNIDine HCl (CATAPRES) tablet 0.1 mg 0.1 mg, Oral, 2 times daily, First dose on Mon10/12/17 at 1100 Given 10/27/2017 8:52 AM EDT [...] Given 10/26/2017 6:47 AM EDT 200 mg dextrose 50 % in water (D50W) iv Syrg 25-50 mL 25-50 mL, Intravenous, Every 15 min PRN, for blood glucose less than 70mg/dL that can not be corrected orally or via feeding tube.?See admin instructions for details., Starting on Mon10/12/17 at 1056, If glucose < 70 and [...] glucose still < 70. entecavir (BARACLUDE) tablet 1 mg 1 mg, Oral, Daily6, First dose (after last modification) on 10/14/17 at 0600, ADMINISTER ON EMPTY STOMACH (2 HOURS BEFORE OR AFTER MEALS). LEVEL 2 HAZARDOUS MEDICATION Given 10/27/2017 6:22 AM EDT 1 mg Given 10/26/2017 6:47 AM EDT 1 mg Given 10/25/2017 6:59 AM EDT 1 mg gabapentin (NEURONTIN) capsule 600 mg 600 mg, Oral, 3 times daily, First dose (after last modification) on Mon10/11/17 at 1300 Given 10/27/2017 3:25 PM EDT 600 mg Given 10/27/2017 8:51 AM EDT 600 mg Given 10/26/2017 9:05 PM EDT 600 mg gentamicin 160 mg in sodium chloride, irrigation 0.9 % 500 mL IRRIGATION As needed, Starting on Mon10/08/17 at 1101, Intra-op Given 10/08/2017 11:01 AM EST 160 mg glucose chewable tablet 12 g 12 g, Oral, Every 15 min PRN, Low blood sugar, for blood glucose less than 70mg/dL. May also give 4 oz fruit juice, 4 oz regular soda, or 8 oz nonfat milk.?See Admin instructions for details., Starting on Mon10/15/17 at 2119, If glucose is between 50 [...] Units R ight Arm hydrALAZINE (APRESOLINE) tablet 10 mg 10 mg, Oral, Every 8 hours scheduled (3 times per day), First dose on Mon10/26/17 at 1300 Given 10/27/2017 3:12 PM EDT 10 mg Given 10/27/2017 6:22 AM EDT 10 mg Given 10/26/2017 9:06 PM EDT 10 mg insulin lispro (humaLOG) injection 0-10 Units [...] times daily before meals, First dose on Mon10/12/17 at 1630, For patients eating discrete meals: humaLOG insulin High Dose correction for patients requiring greater than 80 units/day. Given 10/27/2017 11:49 AM EDT 7 Units Left Arm Given 10/27/2017 9:03 AM EDT 4 Units Le ft Arm Given 10/26/2017 6:39 PM EDT 10 Units Ri ght Arm insulin NPH (HumuLIN N) injection 30 Units 30 Units, Subcutaneous, Every morning, First dose on Mon10/27/17 at 0900, Do not hold medication unless instructed by provider. HIGH ALERT MEDICATION Given 10/27/2017 9:04 AM EDT 30 Units Left Arm ipratropium-albuterol (DUO-NEB) 0.5 mg-3 mg(2.5 mg base)/3 mL nebulizer solution 3 mL 3 mL, Nebulization, RT every 4 hours PRN, Wheezing, Shortness of Breath, Starting on Mon10/23/17 at 1001 lactated ringers irrigation solution As needed, Starting on Mon10/08/17 at 0643, Intra-op Given 10/08/2017 6:43 AM EST 5,000 mLs lidocaine (LIDODERM) 5 % 1 patch 1 patch, Transdermal, Every 24 hours, First dose on Mon10/23/17 at 1030, LEAVE PATCH ON FOR 12 HOURS,THEN REMOVE FOR 12 HOURS. Patch Applied 10/27/2017 10:01 AM EDT 1 patch Other Patch Applied 10/26/2017 2:00 PM EDT 1 patch Other Patch Applied 10/25/2017 5:20 PM EDT 1 patch Other lidocaine (LIDODERM) 5 % 1 patch 1 patch, Transdermal, Every 24 hours, First dose on Mon10/26/17 at 2300, LEAVE PATCH ON FOR 12 HOURS,THEN REMOVE FOR 12 HOURS. Patch Applied 10/26/2017 10:26 PM EDT 1 patch Oth er melatonin Tab 6 mg 6 mg, Oral, At Bedtime (2100), First dose (after last modification) on Mon10/25/17 at 2100, FOR INSOMNIA Given 10/26/2017 9:05 PM EDT 6 mg Given 10/25/2017 8:15 PM EDT 6 mg mycophenolate (CELLCEPT) capsule 500 mg 500 [...] Given 10/27/2017 8:59 AM EDT 4 mg oxyCODONE (ROXICODONE) immediate [...] (NRS-4-6), Starting on Bobbi 10/12/17 at 1210 Given 10/27/2017 8:56 AM EDT 5 mg Given 10/27/2017 1:04 AM EDT 5 mg Given 10/26/2017 9:28 AM EDT 5 mg pantoprazole (PROTONIX) EC tablet 40 mg 40 mg, Oral, Daily6, First dose on Bobbi 10/12/17 at 0600 Given 10/27/2017 6:22 AM EDT 40 mg Given 10/26/2017 5:14 AM EDT 40 mg Given 10/25/2017 6:59 AM EDT 40 mg predniSONE (DELTASONE) tablet 15 mg 15 mg, Oral, Daily, First dose on Mon10/29/17 at 0900 predniSONE (DELTASONE) tablet 20 mg 20 mg, Oral, Daily, First dose (after last modification) on Mon10/20/17 at 0900, For 9 doses, Start daily PO dose on POD #8Indications:Liver transplant candidate Given 10/27/2017 8:52 AM EDT 20 mg Given 10/26/2017 9:28 AM EDT 20 mg Given 10/25/2017 8:13 AM EDT 20 mg sulfamethoxazole-trimethoprim (BACTRIM,SEPTRA) 400-80 mg per tablet 1 tablet 1 tablet, Oral, Daily, First dose on Mon10/11/17 at 0900 Given 10/27/2017 8:51 AM EDT 1 tablet Given 10/26/2017 9:29 AM EDT 1 tablet Given 10/25/2017 8:12 AM EDT 1 tablet traMADol (ULTRAM) tablet 100 mg 100 mg, Oral, Every 6 hours PRN, moderate pain (NRS-4-6), Starting on Mon10/11/17 at 1108 Given 10/17/2017 11:08 PM EST 100 mg traMADol (ULTRAM) tablet 50 mg 50 mg, Oral, Every 6 hours PRN, moderate pain (NRS-4-6), Starting on Mon10/11/17 at 1108 valGANciclovir (VALCYTE) tablet Tab 900 mg 900 mg, Oral, Daily, First dose (after last modification) on Mon10/24/17 at 0900, LEVEL 2 HAZARDOUS MEDICATION Given 10/27/2017 8:52 AM EDT 900 mg Given 10/26/2017 9:28 AM EDT 900 mg Given 10/25/2017 8:13 AM EDT 900 mg documented in this encounter Active and [...] at 0900 0812 (Given - Provider: Lizeth Crow RN)2014 (Given - Provider: Valeria Enriquez RN) 926 (Given - Provider: Erika Pitts RN)2104 (Given - Provider: Kim Batista RN) 0852 (Given - Provider: Ritchie Solis) cloNIDine HCl (CATAPRES) tablet 0.1 mg 0.1 mg, Oral, 2 times daily, First dose on Mon10/12/17 at 1100 0812 (Given - Provider: Lizeth Crow RN)2014 (Given - Provider: Valeria Enriquez RN) 925 (Given - Provider: Erika Pitts RN)2105 (Given - Provider: Kim Batista RN) 0852 (Given - Provider: Ritchie Solis) cycloSPORINE modified ((NEORAL/GENGRAF)) capsule 200 mg 200 mg, Oral, Two times a day, First dose (after last modification) on Mon10/25/17 at 1900, LEVEL 2 HAZARDOUS MEDICATION 1824 (Given - Provider: Erika Pitts RN) 0647 (Given - Provider: Kim Batista, JANA)1839 (Given - Provider: Erika Pitts RN) 0622 (Given - Provider: Kim Batista RN) [...] mg (COMPLETED) 40 mg, Intravenous, Once, On Mon10/25/17 at [...] Enriquez RN) 0926 (Given - Provider: Erika Pitts, JANA)1504 (Given [...] (3 times per day), First dose on Mon10/26/17 at 1300 1504 (Given - Provider: Erika [...] times daily before meals, First dose on Mon10/12/17 at 1630, For patients eating discrete meals: humaLOG insulin High Dose correction for patients requiring greater than 80 units/day. 0817 (Not Given - Provider: Lizeth Crow RN - Reason: Order parameters not met)1414 (Not Given - Provider: Lizeth Crow RN - Reason: Order parameters not met)2013 (Given - Provider: Valeria Enriquez RN) 0822 [...] at bedside. 1727 (Given - Provider: Erika Pitts RN) insulin lispro (humaLOG) injection 15 Units (CANCELED) 15 Units, Subcutaneous, 3 times daily with meals, First dose (after last modification) on Mon10/23/17 at 0800, HIGH ALERT MEDICATION Onset of action is rapid. Give dose 5-10 minutes before meal. Have meal at bedside. 0825 (Given - Provider: Lizeth Crow RN)1414 (Not Given - Provider: Lizeth Crow RN - Reason: Order parameters not met) insulin NPH (HumuLIN N) injection 10 Units (COMPLETED) 10 Units, Subcutaneous, Once, On Bobbi 10/26/17 at 1500, For 1 dose, Do not hold medication unless instructed by provider. HIGH ALERT MEDICATION 1502 (Given - Provider: Erika Pitts RN) insulin NPH (HumuLIN N) injection 10 Units (COMPLETED) 10 Units, Subcutaneous, Once, On Bobbi 10/26/17 at 1700, For 1 dose, Do not hold medication unless instructed by provider. HIGH ALERT MEDICATION 1728 (Given - Provider: Erika Pitts RN) insulin NPH (HumuLIN N) injection 10 Units [...] insulin NPH (HumuLIN N) injection 75 Units (CANCELED)(Linked Group 1) 75 Units, Subcutaneous, Every morning, First dose [...] Batista RN)1001 (Patch Applied - Provider: Josie Diaz RN)2201 (Due: Patch Removed - Provider: Josie Diaz RN) lidocaine (LIDODERM) 5 % 1 patch 1 patch, Transdermal, Every 24 hours, First dose on Mon10/26/17 at 2300, LEAVE PATCH ON FOR 12 HOURS,THEN REMOVE FOR 12 HOURS. 2226 (Patch Applied - Provider: Kim Batista RN) [...] 2014 (Given - Provider: Valeria Enriquez RN) 210 (Given - Provider: Kim Batista RN) mycophenolate (CELLCEPT) capsule 500 mg 500 mg, Oral, 2 times daily, First dose on Mon10/11/17 at 2100, LEVEL 2 HAZARDOUS MEDICATION 0812 (Given - Provider: Lizeth Crow, RN)2014 (Given - Provider: Valeria Enriquez, JANA) 09 (Given - Provider: Erika Pitts, JANA)210 (Given - Provider: Kim Batista, JANA) 0851 (Given - Provider: Ritchie Solis) nystatin (MYCOSTATIN) 100,000 unit/mL suspension 500,000 Units 500,000 Units, Swish & Swallow, 3 times daily, First dose on Mon10/11/17 at 0930 0812 (Given - Provider: Lizeth Crow, JANA)141 (Given - Provider: Lizeth Crow, JANA)2014 (Given - Provider: Valeria Enriquez, JANA) 09 (Given - Provider: Erika Pitts, JANA)1504 (Given - Provider: Erika Pitts, JANA)210 (Given - Provider: Kim Batista, JANA) 0852 (Given - Provider: Ritchie Solis)1511 (Given - Provider: Ritchie Solis) pantoprazole (PROTONIX) EC tablet 40 mg 40 mg, Oral, Daily6, First dose on Mon10/12/17 at 0600 0659 (Given - Provider: Sylvain Hawkins RN) 0514 (Given - Provider: Kim Batista, JANA) 0622 (Given - Provider: Kim Batista, JANA) predniSONE (DELTASONE) tablet 15 mg 15 mg, Oral, Daily, First dose on Mon10/29/17 at 0900 predniSONE (DELTASONE) tablet 20 mg(Linked Group 2) 20 mg, Oral, Daily, First dose (after last modification) on Mon10/20/17 at 0900, For 9 doses, Start daily PO dose on POD #8 0813 (Given - Provider: Lizeth Crow RN) 09 (Given - Provider: Erika Pitts, JANA) 0852 (Given - Provider: Ritchie Solis) sulfamethoxazole-trime thoprim (BACTRIM,SEPTRA) 400-80 mg per tablet 1 tablet 1 tablet, Oral, Daily, First dose on Mon10/11/17 at 0900 0812 (Given - Provider: Lizeth Crow RN) 0929 (Given - Provider: Erika Pitts, JANA) 0851 (Given - Provider: Ritchie Solis) valGANciclovir (VALCYTE) tablet Tab 900 mg 900 mg, Oral, Daily, First dose (after last modification) on Mon10/24/17 at 0900, LEVEL 2 HAZARDOUS MEDICATION 0813 (Given - Provider: Lizeth Crow RN) 0928 (Given - Provider: Erika Pitts, JANA) 0852 (Given - Provider: Ritchie Solis) PRN Medication Order 10/25/2017 10/26/2017 10/27/2017 acetaminophen (TYLENOL) tablet 650 mg 650 mg, Oral, Every 6 hours PRN, Headaches, Starting on Mon10/25/17 at 0737, Maximum dose of acetaminophen is 4000 mg (4 grams) from all sources in 24 hours. 0813 (Given - Provider: Lizeth Crow RN)2025 (Given [...] 8 hours PRN, Nausea, Vomiting, Starting on 10/17/17 at 0546 0140 (Given - Provider: Kim Batista RN)0859 (Given - Provider: Ritchie Solis)1524 (Given - Provider: Ritchie Solis)1527 (Given - Provider: Ritchie Solis - Comment: pt is taking this dose home with them) oxyCODONE (ROXICODONE) immediate release tablet 10 mg(Linked Group 3) 10 mg, Oral, Every 4 hours PRN, severe pain (NRS 7-10), Starting on Bobbi 10/12/17 at 1210 0914 (Canceled Entry - Provider: Josie Diaz RN)0916 (See Alternative - Provider: Josie Diaz RN)1830 (Given - Provider: Erika Pitts RN) 0514 (Given - Provider: Kim Batista RN)0928 (See Alternative - Provider: Erika Pitts RN) 0104 (See Alternative - Provider: Kim Batista RN)0856 (See Alternative - Provider: Ritchie Solis) oxyCODONE (ROXICODONE) immediate release tablet 5 mg(Linked Group 3) 5 mg, Oral, Every 4 hours PRN, moderate pain (NRS-4-6), Starting on Mon10/12/17 at 1210 0914 (See Alternative - Provider: Josie Diaz RN)0916 (Given - Provider: Josie Diaz RN)1830 (See Alternative - Provider: Erika Pitts RN) 0514 (See Alternative - Provider: Kim Batista RN)0928 (Given - Provider: Erika Pitts RN) 0104 (Given - Provider: Kim Batista RN)0856 (Given - Provider: Ritchie Solis) traMADol (ULTRAM) tablet 100 mg(Linked Group 4) 100 mg, Oral, Every 6 hours PRN, moderate pain (NRS-4-6), Starting on Mon10/11/17 at 1108 traMADol (ULTRAM) tablet 50 mg(Linked Group 4) 50 mg, Oral, Every 6 hours PRN, moderate pain (NRS-4-6), Starting on Mon10/11/17 at 1108 Linked Groups Order Group 1: insulin NPH (HumuLIN N) injection 75 Units (CANCELED)Jump to med 75 Units, Subcutaneous, Every morning, First dose (after last modification) on Mon10/25/17 at 0900, Do not hold medication unless instructed by provider. HIGH ALERT MEDICATION And insulin NPH (HumuLIN N) injection 10 Units (CANCELED) 10 Units, Subcutaneous, At Bedtime (2100), First dose (after last modification) on Mon10/25/17 at 2100, Do not hold medication unless instructed by provider. HIGH ALERT MEDICATION Group 2: predniSONE (DELTASONE) tablet 20 mgJump to med 20 mg, Oral, Daily, First dose (after last modification) on Mon10/20/17 at 0900, For 9 doses, Start daily PO dose on POD #8 Group 3: oxyCODONE (ROXICODONE) immediate release tablet 5 mgJump to med 5 mg, Oral, Every 4 hours PRN, moderate pain (NRS-4-6), Starting on Bobbi 10/12/17 at 1210 Or oxyCODONE (ROXICODONE) immediate release tablet 10 mgJump to med 10 mg, Oral, Every 4 hours PRN, severe pain (NRS 7-10), Starting on Bobbi 10/12/17 at 1210 Group 4: traMADol (ULTRAM) tablet 50 mgJump to med [...] as of this encounter Care Teams Internet Cafe Manager Relationship Specialty Start Date End Date [place] [address] PCP - General 08/18/17 06/23/21 documented as of this encounter
--- OUTSIDE RECORDS SUMMARY | 2024-07-12 13:01 | XMS_ITS | Encounter Summary ---
Author Organization Health Address [address] [place] [address] Care Team Providers Care Informatics Physician Liaison Name Role Phone Edgar Fournier MD Primary Care Provider [phone] Source Comments This information has been disclosed [...] release of HIV test results or diagnoses. [id number] Encounter Details Date Type Department Care Team (Late st Contact Info) Description 10/07/2017 Telephone [facility] Liver Transplant at Outpatient [address] [phone] Aleta Worthington, RN Social History Tobacco Use [...] Miscellaneous Notes * Telephone Encounter - Aleta Worthington RN - 10/07/2017 7:56 PM EST This life skills coordinator received a call from the attending transplant surgeon that an organ wasaccepted for the patient. The patient was notified and directed to come to the hospital (8CCP). Thepatient???s significant other/caregiver will accompany the patient and will be available to the medi tabatha/surgical team as needed for updates/progress during surgery. The patient denies recent fevers/illness/hospitalizations. The patient was advised not to eat or drink anything at this time and to leave any valuables at home. The transplant surgery notification list (8CCP charge authorizer, Admitting, OR, Pharmacy, Hematology/Coag lab, Cross-match lab, [facility]/Transplant Immunology lab) was completed. Donor information verified in [facility] and notification email sent to the transplant team. Most recent SRTR Transplant outcomes discussed with the candidate and questions answered. Most recent SRTR data is statistically unchanged from the previous data. Current one-year survival statistics at [facility] were published in August 18, 2017 and include all patients who received a liver transplant at [facility] between February 11, 2014 and August 13, 2016. These statistics are as follows: 1 year Graft and Patient Survival (includes all donor types) [facility] Expected National Averages Comment Adult Graft Survival 87.25% 90.88% 90.17% No significant difference between [facility] results and expected results Adult Patient Survival 90.68% 92.97% 92.33% Admitting: Bed Control notified of patient???s pending liver transplant and spoke with Celia. OR: [phone] OR time: to be determined and spoke with Brigid. OR notified [facility]. Email notification to Transplant team sent. Complete, copy and paste into the notificatin email: Donor ID: [id number] Match ID: [id number] ABO: O OPO: Remote AGE: 32 COD: Anoxia PHS high risk: Yes documented in this encounter Plan of Treatment Upcoming Encounters Date Type Department Care Team (Late st Contact Info) Description 07/15/2024 9:00 AM EST Hospital Encounter [facility] Interventional Radiology [address] [place] [phone] Herve Carrillo MD [address] [facility] [address] Surgery [place] [address] documented as of this encounter Visit Diagnoses Not on filedocumented in this encounter Additional Health Concerns Assessment Noted Time PHQ-9 Depression Total Score: 0 08/21/19 18 11:00 AM EST documented as of this encounter Care Teams Informatics Physician Liaison Relationship Specialty Start Date End Date Edgar Fournier MD [address] [place] [address] [place] [address] PCP - General 08/18/17 06/23/21 documented as of this encounter
--- OUTSIDE RECORDS SUMMARY | 2024-07-12 13:02 | XMS_ITS ---
Author Name Man Sky Address [address] [place] [address] Phone [phone] Organization [facility], NA DOCUMENT DISCLAIMER Multiple document versions may exist, please be sure you review the latest version. The information in the [facility] Emergency Department Progress Note Document represents a providers documented clinical note containing certain health and medical information. It may not contain the complete medical history for the patient and should be independently verified. The represented time in the document is Eastern Time PROVIDER ROUNDING NOTE HHD PROVIDER?ROUNDING?NOTE?HHD Clinic:?[facility]?HOME?PROGRAM Visit?date:?11/28/2022?00:00?Modality/setting:?HHD Aiden?Eh?-?Chart?#:?[id number] Method?of?Interaction:?Face?to?face Date?of?Interaction:?04/30/2024 ?-?Patient?is?stable ?-?Medications?and?labs?reviewed. 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 Vitals ?Most?recent?vitals:?Date:?04/30/2024?Collected?Date:?? ?04/16/2024?Temperature:?Temperature:?97.4?Pulse:?Pulse:?95?&#160 ;?Respirations:?Respirations:?18?&#160 ;?BP?(Sitting):?135/86?BP?(Sitting):?221/109?&# 160;?BP?(Standing):?BP?(Standing):?& #160;?Weight?(kg):?Weight?(kg):?136.2?Height?date:?11/28/2022??& #160;?&# 160;?Height?(cm):?175???&# 160;?&# 160;?? doing?better?with?bp HHD?Prescription More?Frequent?Dialysis?-?Based?on?provider's?assessment?of&# 160;patient?condition: ?-?Continue?with?greater?than?3x?more?frequent?dialysis?prescription Note?clinical?response?to?more?frequent?dialysis?or?any&#160 ;changes?to?patient's?condition?that?are?relevant: ?for?volume?control ??01/18/2024?Home?HD?using?NxStage?with?PureFlow?4X&#16 0;Week,?Jackelyn,?Estimated Treatment?Time:?3?hrs?0?min,?CAR?172,?Therapy?Fluid&#16 0;1.0?K?40?Lactate,?Volume?per Tx?50?(liters),?Max?FF:?100?%,?BFR:?450,?DFR:?17 L/hr,?Ordered?Max?UFR:?1 mL/Kg/hr,?EDW?133?(kg),?Access:?AVFistula-Standard,?Clinic?4343- Home?Machine?HHD?NxStage?System?One?S ?11/14/2019 Order?Diagnosis ICD10?Code?Diagnosis?Description ? 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 Urea?Clearance,?Urine?wstdKt/V?0.67?03/19/2024?-?2.2?03/19/24?0.73?03/04/2024?-?2.1?03/04/24?0.47?02/26/2024?-?1.3?02/26/24?? ?-?Adequacy?parameters?reviewed Adequacy ?-?Adequacy?target?met good Anemia ?HGB?g/dL? Transferrin?Sat.?(Calc)?%?Ferritin?ng/mL&#160 ;?9.7?04/24/24? 31?04/24/24?352?04/24/24?? ?11.6?03/19/24?12?03/19/24?298 ?03/19/24?? ?11.5?02/26/24?22?02/26/24?224 ?02/26/24?? ?-?Anemia?reviewed hgb?dropped?iv?fe?given?lisa?given Bone?and?Mineral?Metabolism ??Calcium,?Total?mg/dL?? Calcium,?Corrected?mg/dL ?&#1 60;??Phosphorous?mg/dL??? PTH-Intact,?Plasma?pg/mL ??8.2?04/24/24? 8.1?04/24/24?4.4&#16 0;?04/24/24?1560?04/24/24?8.6?03/19/24? 8.4?03/19/24?6.7&#16 0;?03/19/24?460?03/19/24?9.0?02/26/24? 8.8?02/26/24?7.2&#16 0;?02/26/24?1746?02/26/24?Vitamin?D?25?Hydroxy?ng/mL?Calcimimetics?78.8?08/28/23?-?97.2?11/28/22?-?53.8?03/20/20?-? Calcium:?At?target Phosphorus:??At?target PTH:?Above?target ?-?Bone?and?mineral?metabolism?parameters?reviewed po4?4.4?best?ever,?pth?up,?he?missed?some?cinacalcet&#1 60;when?he?was?at?[facility].??he is?taking?tums?with?meals?he?is?asked?to?chew?2&#1 60;500's?at?hs?should?help?pth?come down Nutrition ?Albumin?g/dL? eNPCR?g/kg/day?Bicarbonate?mEq/L??? Potassium,?Serum?mEq/L ?4.1?04/24/24?-?21?04/24/24?? ?5.0& #160;?04/24/24?? ?4.3?03/19/24?-?19?03/19/24?? ?5.6& #160;?03/19/24?? ?4.3?02/26/24?-?16?02/26/24?? ?4.8& #160;?03/06/24?? ?-?Nutrition?reviewed he?is?now?taking?nahco3?and?lokelma?bid. Home?Medications Home?Medication?Reviewed:?Kati?Carlito?04/30/2024?12:01:11?EDT ?Home?Medications?(updated:?04/16/2024?16:21:14) Patient:?Eh, Aiden ??Shilpi?Low?Dose?Aspirin?(aspirin) 81?mg,?oral,?1?tablet?once?a?day ??carbamazepine?(carbamazepine) 200?mg,?oral,?1?tablet?every?night ??carvedilol?(carvedilol) 25?mg,?oral,?2?tablet?twice?a?day ??CellCept?(mycophenolate?mofetil) 250?mg,?oral,?1?capsule?twice?a?day ??cholecalciferol?(vitamin?D3)?(cholecalciferol?(vitamin?d3)) 625?mcg?(25,000?unit),?oral,?2?capsule?three?times?a week [Odovocv-Mwhbdopq-Iexqpqph] ??cinacalcet?(cinacalcet) 60?mg,?oral,?2?tablet?once?a?day [take?with?the?evening?meal] ??clonazepam?(clonazepam) 0.5?mg,?oral,?1?tablet?once?a?day ??cyclosporine?(cyclosporine) 25?mg,?oral,?4?capsule?every?morning ??cyclosporine?(cyclosporine) 25?mg,?oral,?5?capsule?every?night?at?bedtime ??doxazosin?(doxazosin) 8?mg,?oral,?1?tablet?every?night ??entecavir?(entecavir) 0.5?mg,?oral,?1?tablet?once?a?week [Takes?on?Monday] ??ergocalciferol?(vitamin?D2)?(ergocalciferol?(vitamin?d2)) 1,250?mcg?(50,000?unit),?oral,?1?capsule?as?directed [Monday,?Monday,?Monday] ??folic?acid?(folic?acid) 1?mg,?oral,?1?tablet?once?a?day ??gabapentin?(gabapentin) 300?mg,?oral,?1?capsule?once?a?day ??lactulose?(lactulose) 10?gram/15?mL,?oral,?30?ml?once?a?day [for?constipation]... There?are?additional?active?home?medications?for?this?patien t.?Please?view?in?Clinical?Summary Last?Hospitalization ?Admission?Date:?04/17/2024 ?Discharge?Date:?04/18/2024 ?Discharge?Diagnosis: ?-?N18.6?-?End?stage?renal?disease ?-?T82.41XA?-?Breakdown?(mechanical)?of?vascula r?dialysis?catheter,?initial?encounter Access?and?Evaluation Active/Maturing?Accesses ?Type?Position/Location?Status?Access?ID?CVCatheter-Tunneled?Chest?Active?(In?Use)?[id number]?-?-?&# 160;?-? -?-?-?&# 160;?-? -? Referral?made?for?access?revision/intervention avf?ligated,?he?has?agreed?to?proceed?with?surgical?eval,?cvc?balky?likely fibrin?sheath Infection Most?Recent?In-center?Antibiotic?Order 05/15/2020?Vancomycin?HCl?750?mg?IV?Every?Treatment?x?1 2?Times,?Clinic?7119-?Entered?By?ACSmith Exam ?-?Vital?signs?reviewed Pulmonary ?-?LUNGS?-?clear Cardiovascular ?-?CV?-?Blood?pressure?noted ?-?CV?-?RRR Edema ?-?EXT?-?No?edema Transplant?Status Topic Exploring?Alternative?Treatment?Options: Kidney?Transplant ?Person?Taught: ?-?Patient ?Additional?Education?Required:?No ?Date?Given:?11/14/2019 Interest?and?Eligibility?(If?changes?are?made,?Please?notify?SW?via?alert?below) ?Date?of?discussion?from?transplant?assessment:?04/13/2024 ?Patient?already?on?transplant?list??No ?Patient?interested?in?transplantation??Yes ?Has?patient's?physician?identified?one?or?more?exclusions per?the ?Contraindication?list?provided?by?the?transplant?center? ??No ?Patient?referred?for?transplantation??Yes,?per?physician?order ?Transplant?Comments: ??03/25?Patient?referred?to?[facility]160;[facility],?patient?went?and met?with?transplant?team. ?Transplant?center/state:?[facility] ?Transplant?center/state:?[facility]?HOSPITAL ?Provider?Transplant?Comment: ??proceeding?with?laparoscopic?transplant?at[facility] Tobacco?Cessation ??Tobacco?use:?Never?used Man?Jose Daniel,? END OF DOCUMENT
--- OUTSIDE RECORDS SUMMARY | 2024-07-12 13:02 | XMS_ITS | Encounter Summary ---
Author Organization [facility] Address [facility] [place] [address] Care Team Providers Care Utility Sales Representative Name Role Phone Edgar Fournier MD Primary Care Provider [phone] Source Comments This information has been disclosed [...] release of HIV test results or diagnoses. [id number] Encounter Details Date Type Department Care Team (Late st Contact Info) Description 09/28/2017 Orders Only [facility] Liver Transplant at Outpatient [address] [phone] Eleanor Casey PA Pre-transplant evaluation for chronic liver disease; Hepatic encephalopathy ([facility] Dx) Social History Tobacco Use Types Packs/Day [...] [facility] Interventional Radiology [address] [place] [phone] Herve Carrillo MD [address] [facility] [address] [place] [phone] documented as of this encounter Visit Diagnoses Diagnosis Pre-transplant evaluation for chronic liver disease Hepatic encephalopathy (CMS-HCC) Hepatic encephalopathy documented in this encounter Additional Health Concerns Assessment Noted Time PHQ-9 Depression Total Score: 0 08/21/19 18 11:00 AM EST documented as of this encounter Care Teams Utility Sales Representative Relationship Specialty Start Date End Date [place] [phone] PCP - General 08/18/17 06/23/21 documented as of this encounter
--- OUTSIDE RECORDS SUMMARY | 2024-07-12 13:02 | XMS_ITS | Encounter Summary ---
Author Organization [facility] Address [facility] [place] [address] Care Team Providers Care First Mate Name Role Phone Edgar Fournier MD Primary Care Provider [phone] Source Comments This information has been disclosed [...] release of HIV test results or diagnoses. [id number] Encounter Details Date Type Department Care Team (Late st Contact Info) Description 08/23/2017 Orders Only [facility] Liver Transplant at Outpatient Pavilion [address] [place] [phone] America Vazquez MD [address] [place], [place] [id number] Pre-transplant evaluation for chronic liver disease (Primary Dx) Social History Tobacco Use Types Packs/Day Years Used Date Smoking Tobacco: Never Smokeless Tobacco: Never Sex and Gender Information Value Date Recorded Sex Assigned at Not on file Legal Sex Male 11:05 AM EDT Gender Identity Not on file Sexual Orientation Not on file documented as of this encounter Plan of Treatment Upcoming Encounters Date Type Department Care Team (Late st Contact Info) Description 07/15/2024 9:00 AM EST Hospital Encounter [facility] Interventional Radiology [address] [place] [phone] Herve Carrillo MD [address] [facility] [place] [address] documented as of this encounter Results * Ethyl Glucuronide/Ethyl Sulfate, Scrn w/Conf (08/31/2017 11:46 AM EST) Ethyl Glucuronide Screen, Urine Negative Cutoff=50 0 ng/mL 09/02/2017 5:17 PM EST [facility] Comment: This test was developed and its performance characteristics determined by [facility]. It has not been cleared or approved by the Food and Drug Administration. Urine specimen (specimen) 08/31/2017 11:46 AM EST 09/02/2017 6:05 PM EST Narrative [facility] - 09/02/2017 6:05 PM EST PERFORMED AT: [facility] [address] [place], [place] [id number] GAME FARM SUPERVISOR: Jack Reagan MD ?? PHONE: [phone] us America Vazquez MD URINE ORDERABLES Final Result [facility] [address] documented in this encounter Visit Diagnoses Diagnosis Pre-transplant evaluation for chronic liver disease- Primary Pre-transplant evaluation for chronic liver disease Liver 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) documented in this encounter Additional Health Concerns Assessment Noted Time PHQ-9 Depression Total Score: 0 08/21/19 18 11:00 AM EST documented as of this encounter Care Teams First Mate Relationship Specialty Start Date End Date Edgar Fournier MD [address] [place] [phone] PCP - General 08/18/17 06/23/21 documented as of this encounter
--- OUTSIDE RECORDS SUMMARY | 2024-07-12 13:02 | XMS_ITS | Encounter Summary ---
Author Organization [facility] Address [address] [place] [address] Care Team Providers Care Commercial Engineer Name Role Phone Edgar Fournier MD Primary Care Provider [phone] Source Comments This information has been disclosed [...] release of HIV test results or diagnoses. [id number] Reason for Referral * Physician/ANUSHA (Routine) - Closed Specialty Diagnoses / Procedures Referred By Contact Referred To Contact Pre-Admission Testing Diagnoses Liver 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) Pre-transplant evaluation for chronic liver disease Eleanor Casey PA [facility] Perioperative Care at [address] [address] Phone: tel: fax: Referral ID Status Reason Start Date Expiration Date Visits Re quested Visits Authorized [id number] Closed 08/23/2017 02/19/2018 1 1 Encounter Details Date Type Department Care Team (Late st Contact Info) Description 08/23/2017 Orders Only [facility] Liver Transplant at Outpatient Pavilion [address] [place] [phone] Eleanor Casey PA Liver 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) (Primary [...] [facility] Interventional Radiology [address] [place] [phone] Herve Carrillo MD [address] [facility] [address] [place] [phone] Scheduled Referrals Name Type Priority Associated Diagnoses Order Schedule GASKET INSPECTOR VISIT WITH ANESTHESIOLOGIST Outpatient Referral Routine Liver 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) Pre-transplant evaluation for chronic liver disease Ordered: 08/23/2017 documented as of this encounter Visit Diagnoses Diagnosis Liver 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)- Primary Pre-transplant evaluation for chronic liver disease documented in this encounter Additional Health Concerns Assessment Noted Time PHQ-9 Depression Total Score: 0 08/21/19 18 11:00 AM EST documented as of this encounter Care Teams Commercial Engineer Relationship Specialty Start Date End Date Edgar [place] [address] PCP - General 08/18/17 06/23/21 documented as of this encounter
--- OUTSIDE RECORDS SUMMARY | 2024-07-12 13:02 | XMS_ITS | Encounter Summary ---
Author Organization [facility] Address [facility] [place] [address] Care Team Providers Care Network Services Project Manager Name Role Phone Edgar Fournier MD Primary Care Provider [phone] Source Comments This information has been disclosed [...] release of HIV test results or diagnoses. 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); Secondary esophageal varices with bleeding (CMS-HCC); Hepatic encephalopathy ([facility] Dx); Pre-transplant evaluation for chronic liver disease; S/P TIPS (transjugular intrahepatic portosystemic shunt); Pre-transplant evaluation for liver transplant Social History Tobacco Use Types Packs/Day Years Used Date Smoking Tobacco: Never Smokeless Tobacco: Never Sex and Gender Information Value Date Recorded Sex Assigned at Not on file Legal Sex Male 11:05 AM EDT Gender Identity Not on file Sexual Orientation Not on file documented as of this encounter Last Filed Vital Signs Vital Sign Reading Time Taken Comments Blood Pressure 140/80 08/21/2017 7:00 AM EST Pulse 73 08/21/2017 7:00 AM EST Temperature 36.4 ??C (97.5 ??F) 08/21/2017 7:00 AM ES T Respiratory Rate - - Oxygen Saturation 96% 08/21/2017 7:00 AM EST Inhaled Oxygen Concentration 96% 08/21/2017 7 :00 AM EST Weight 115.7 kg (255 lb) 08/21/2017 7:00 AM EST Height 170.2 cm (5' 7 ) 08/21/2017 7:00 AM EST Body Mass Index 39.94 08/21/2017 7:00 AM EST documented in this encounter Patient Instructions * Patient Instructions* America Vazquez MD - 08/21/2017 11:30 AM EST 1. Laboratory testing today 2. Continue lactulose and xifaxan for confusion 3. Will get records from and plan to place on the transplant soon in the next 1-2 weeks 4. Return to clinic 3 months documented in this encounter Progress Notes * Gabbi Rock MA - 08/21/2017 11:30 AM EST Review of Systems Respiratory: Positive for shortness of breath. Gastrointestinal: Positive for diarrhea. Musculoskeletal: Positive for back pain. Temp 97.5 ??F (36.4 ??C) (Oral) Ht 5' 7 (1.702 m) Wt (!) 255 lb (115.7 kg) SpO2 96% BMI 39.94 kg/m?? documented in this encounter Plan of Treatment Upcoming Encounters Date Type Department Care Team (Late st Contact Info) Description 07/15/2024 9:00 AM EST Hospital Encounter [facility] Interventional Radiology [address] [place] [address] Herve Carrillo MD [address] [facility] [address] Surgery [place] [address] Scheduled Orders Name Type Priority Associated Diagnoses Orde r Schedule Hepatitis A Panel Lab Routine Pre-transplant evaluation for liver transplant 1 Occurrences starting 08/21/2017 until 08/21/2018 documented as of this encounter Results * (ABNORMAL) Varicella zoster antibody, IgG (08/21/2017 2:49 PM EST) Pathologist [facility] Varicella IgG Positive( AA) Negative 08/22/2017 11:37 AM EST [facility] Comment: Result indicates the presence of detectable VZV IgG antibodies. ??A positive result is generally indicative of exposure to the pathogen or administration of specific immunoglobulins, but it is no indication of active infection or stage of disease. ??This test is not approved for determining vaccine-induced immunity to varicella zoster virus. VZV NUM 4,000.00( H) 0.00 - 134.99 INDEX 08/22/2017 11:37 AM EST [facility] Serum specimen (specimen) 08/21/2017 2:49 PM EST 08/21/2017 3:06 PM EST America Vazquez MD LAB BLOOD ORDERABLES Fi nal Result [facility] [address] [place], [place] [address] * Toxoplasma gondii antibody, IgG (08/21/2017 2:49 PM EST) Pathologist [facility] Toxoplasma Gondii IgG <3.0 0.0 - 7.1 IU/mL 08/22/2017 8:08 AM EST [facility] Comment: ? Negative ?<7.2 ? Equivocal ??7.2 - 8.7 ? Positive ?>8.7 Serum specimen (specimen) 08/21/2017 2:49 PM EST 08/22/2017 8:12 AM EST Narrative [facility] - 08/22/2017 8:12 AM EST PERFORMED AT: [address] [id number] PHARMACY AIDE: Octavio Best, PhD ?? PHONE: [phone] America Vazquez MD LAB BLOOD ORDERABLES [facility] Result Performing Organization Address City/State/[facility] Co de Phone Number [facility] [address] [facility]. [address] * Quantiferon TB Gold (08/21/2017 2:49 PM EST) [facility] QuantiFERON TB Gold NEGATIVE NEGATIVE 08/24/2017 1:46 PM EST [facility] Comment: Negative results do not preclude TB infection. ??In cases with high suspicion of disease, retesting with medical evaluation may be useful. QFT TB Ag minus Nil -0.014 IU/mL 08/24/2017 1:46 PM EST [facility] QuantifFERON Mitogen >10# 08/24/2017 1:46 PM EST [facility] QuantiFERON Nil 0.051 IU/mL 8 1:46 PM EST [facility] QuantiFERON TB Ag 0.036# IU/mL 08/24/2017 1:46 PM EST [facility] Whole blood specimen (specimen) 08/21/2017 2:49 PM EST 08/21/2017 2:58 PM EST Narrative [facility] - 08/24/2017 1:46 PM EST The Quantiferon TB Gold test is designed to aid in the diagnosis of Mycobacterium tuberculosis ??infection, including Latent TB infection (LTBI) and tuberculosis (TB). ??A positive result suggests a diagnosis of TB infection and should be ??followed by medical evaluation. ??A negative result does not preclude TB infection, especially in immunosuppressed patients. ??Please see www.cdc.gov/tb ??for more information. us America Vazquez MD LAB BLOOD ORDERABLES [facility] Result [facility] [address] [place] [address], [facility] * (ABNORMAL) MMR(IgG) Panel (Measles, Mumps, Rubella) (08/21/2017 2:49 PM EST) Mumps IgG Positive 08/22/2017 10:30 AM EST [facility] MUMPS IGG NUM 300.00(H) 0.0 - 8.9 U/mL 08/22/2017 10:30 AM EST [facility] Rubella IgG Scr Negative 08/22/2017 10:30 AM EST [facility] RUB NUM 0.14 0.0 - 0.8 INDEX 08/22/2017 10:30 AM EST [facility] Rubeola Ab, IgG Negative 08/22/2017 10:30 AM EST [facility] RUB IGG NUM 5.00 0.0 - 24.9 U/mL 08/22/2017 10:30 AM EST [facility] Serum specimen (specimen) 08/21/2017 2:49 PM EST 08/21/2017 3:05 PM EST Narrative [facility] - 08/22/2017 10:30 AM EST Absence of detectable measles virus IgG antibodies. A negative result generally indicates that the patient has not been infected and is susceptible to measles. If the subject has no history of measles, has not been previously vaccinated and exposure to measles virus is suspected despite a negative finding, a second sample should be collected and tested within one to two weeks later. Presence of detectable mumps virus IgG antibodies. A positive result generally indicates past exposure to mumps virus or previous vaccination. Sample is considered negative for IgG antibodies to rubella virus. A negative result presumes that immunity has not been acquired. If exposure to rubella virus is suspected despite a negative finding, a second specimen should be collected and tested one or two weeks later. Seroconversion from a negative specimen to a postive specimen is evidence of either recent infection, response to vaccination, or administration of immunoglobulins. America Vazquez MD LAB BLOOD ORDERABLES nal Result Performing Organization Address [facility] de Phone Number [facility] [address] [facility]. [address] * Vitamin D 25 hydroxy (08/21/2017 2:49 PM EST) [facility] Vit D, 25-Hydroxy 33.3 30.0 - 100 ng/mL 08/22/2017 11:52 AM EST [facility] Comment: Vitamin D deficiency has been defined by the [place] of Medicine (IOM) and an Endocrine Society [...] guideline. ??JCEM. ??2010; 96(8):1911-30. Serum specimen (specimen) 08/21/2017 2:49 PM EST 08/21/2017 2:57 PM EST America Vazquez MD LAB BLOOD ORDERABLES Fi nal Result Performing Organization Address [facility] Co de Phone Number [facility] [address] [facility]. [address] * (ABNORMAL) TSH (Thyroid Stimulating Hormone) (08/21/2017 2:49 PM EST) Pathologist [facility] TSH 4.46(H) 0.45 - 4.12 uIU/mL 08/21/2017 4:41 PM EST [facility] Serum specimen (specimen) 08/21/2017 2:49 PM EST 08/21/2017 3:05 PM EST America Vazquez MD LAB BLOOD ORDERABLES Fi nal Result Performing Organization Address [facility] de Phone Number [facility] [address] [place] [address]. [address] * Syphilis Screening (Trepia) (08/21/2017 2:49 PM EST) Pathologist [facility] Treponema Pallidum Negative Negative 08/22/2017 10:27 AM EST [facility] Comment: No serological evidence of infection with Treponema pallidum (incubating or early primary syphilis cannot be excluded). Serum specimen (specimen) 08/21/2017 2:49 PM EST 08/21/2017 3:05 PM EST America Vazquez MD LAB BLOOD ORDERABLES Fi nal Result Performing Organization Address [facility] de Phone Number [facility] [address] [place] [address]. [address] * (ABNORMAL) Lipid Profile (08/21/2017 2:49 PM EST) Pathologist [facility] Cholesterol, Total 86 0 - 200 mg/dL 08/21/2017 3:42 PM EST [facility] Triglycerides 96 10 - 149 mg/dL 08/21/2017 3:42 PM EST [facility] HDL 26(L) 60 - 92 mg/dL 08/21/2017 3:42 PM EST [facility] Comment: ?LIPID PROFILE INTERPRETATION ?CHOLESTEROL,TOTAL(mg/dL) [...] 9- to 12- hour fast. LDL Cholesterol 41 mg/dL 8 3:42 PM EST [facility] Plasma specimen (specimen) 08/21/2017 2:49 PM EST 08/21/2017 2:56 PM EST Narrative [facility] - 08/21/2017 3:42 PM EST Must the patient be fasting for this test?->No America Vazquez MD LAB BLOOD ORDERABLES Fi nal Result Performing Organization Address [facility] de Phone Number [facility] [address] [facility]. [address] * HIV-1 and HIV-2 Antibodies w/Reflex (08/21/2017 2:49 PM EST) HIV 1+2 AB/AGN Nonreactive Nonreactive 08/21/2017 4:09 PM EST [facility] Serum specimen (specimen) 08/21/2017 2:49 PM EST 08/21/2017 2:57 PM EST Narrative [facility] - 08/21/2017 4:09 PM EST HIV-1 p24 Antigen and HIV-1/HIV-2 Antibody not detected. America Vazquez MD LAB BLOOD ORDERABLES Fi nal Result Performing Organization Address [facility] de Phone Number [facility] [address] [facility]. [address] * Hepatitis C antibody (08/21/2017 2:49 PM EST) HCV Ab Nonreactive Nonreactive 08/21/2017 4:07 PM EST [facility] Comment:Health Department no tified in accordance with reportable infectious disease guidelines. HCVAB Number 0.16 0.00 - 0.79 S/CO 08/21/2017 4:07 PM EST [facility] Serum specimen (specimen) 08/21/2017 2:49 PM EST 08/21/2017 2:57 PM EST Narrative [facility] - 08/21/2017 4:07 PM EST Antibodies to HCV not detected; does not exclude the possibility of exposure to HCV. America Vazquez MD LAB BLOOD ORDERABLES Fi nal Result Performing Organization Address City/[facility]/ZIP Co de Phone Number [facility] [address] [facility]. [address] * Hepatitis B surface antigen (08/21/2017 2:49 PM EST) Pathologist [facility] Hep B Surface Ag Nonreactive Nonreactive 08/21/2017 4:06 PM EST [facility] Comment:Health Department no tified in accordance with reportable infectious disease guidelines. Serum specimen (specimen) 08/21/2017 2:49 PM EST 08/21/2017 2:57 PM EST [facility] - 08/21/2017 4:06 PM EST Specimen is considered negative for HBsAg. America Vazquez MD LAB BLOOD ORDERABLES Fi nal Result [facility] [address] [facility]. [address] * (ABNORMAL) Hepatitis B surface antibody (08/21/2017 2:49 PM EST) HBSAB NUMBER 171.69(H) 0.00 - 7.99 mIU/mL 08/21/2017 4:09 PM EST [facility] Hep B S Ab Reactive( A) Nonreactive 08/21/2017 4:09 PM EST [facility] Serum specimen (specimen) 08/21/2017 2:49 PM EST 08/21/2017 2:57 PM EST [facility] - 08/21/2017 4:09 PM EST Individual is considered immune to HBV infection. America Vazquez MD LAB BLOOD ORDERABLES Fi nal Result Performing Organization Address [facility] Co de Phone Number [facility] [address] [place] [address]. [address] * Hepatitis B Core Antibody (08/21/2017 2:49 PM EST) Hep B Core Total Ab Nonreactive Nonreactive 08/21/2017 4:04 PM EST [facility] Comment:Health Department no tified in accordance with reportable infectious disease guidelines. Serum specimen (specimen) 08/21/2017 2:49 PM EST 08/21/2017 2:57 PM EST [facility] - 08/21/2017 4:04 PM EST A nonreactive final interpretation indicates that anti-HBc antibodies were not detected in the sample; it is possible that the individual is not infected with HBV. America Vazquez MD LAB BLOOD ORDERABLES Fi nal Result Performing Organization Address [facility] Co de Phone Number [address] * Hemoglobin A1c (08/21/2017 2:49 PM EST) Hemoglobin A1C 5.5 4.8 - 6.4 % 08/21/2017 3:35 PM EST [facility] Comment: Hemoglobin (Hb) A1C Normal: ??4.8 - 5.6% Increased Risk for Diabetes: 5.7 - 6.4% Diagnostic Diabetes: ? >/= ?? 6.5% (Drawn on 2 separate occasions) Glycemic Control for Adults with Diabetes: <7.0% (DCCT / NGSP) Whole blood specimen (specimen) 08/21/2017 2:49 PM EST 08/21/2017 3:02 PM EST America Vazquez MD LAB BLOOD ORDERABLES Fi nal Result Performing Organization Address [facility] Co de Phone Number [facility] [address] [facility]. [address] * Ferritin (08/21/2017 2:49 PM EST) Pathologist [facility] Ferritin 153.3 23.9 - 336.2 ng/mL 08/21/2017 4:45 PM EST [facility] Serum specimen (specimen) 08/21/2017 2:49 PM EST 08/21/2017 3:05 PM EST America Vazquez MD LAB BLOOD ORDERABLES Fi nal Result Performing Organization Address [facility] de Phone Number [facility] [address] [facility]. [address] * F-Actin Smooth Muscle Ab (08/21/2017 2:49 PM EST) Pathologist [facility] F-Actin Smooth Muscle IgG 11 0 - 19 Units 08/22/2017 1:03 PM EST [facility] Comment: ? Negative ? 0 - 19 ? Weak positive ? 20 - 30 ? Moderate to strong positive ? >30 Actin Antibodies are found in 52-85% of patients with autoimmune hepatitis or chronic active hepatitis and in 22% of patients with primary biliary cirrhosis. Serum specimen (specimen) 08/21/2017 2:49 PM EST 08/22/2017 1:06 PM EST Narrative [facility] - 08/22/2017 1:06 PM EST PERFORMED AT: [address] [id number] PHARMACY AIDE: Octavio Best, PhD ?? PHONE: [phone] Result [facility] America Vazquez MD LAB BLOOD ORDERABLES Fi nal Result Performing Organization Address City/[facility] Co de Phone Number [facility] [address] [place] [address]. [address] * (ABNORMAL) [place] virus VCA IgG Antibody (08/21/2017 2:49 PM EST) Pathologist [facility] EBV VCA IgG Positive( AA) Negative 08/22/2017 11:39 AM EST [facility] Comment:Presence of detectab le VCA IgG antibodies. A positive result indicates current or past exposure to [place] virus. EBV IGG NUM 424.00(H) 0.00 - 17.99 U/mL 08/22/2017 11:39 AM EST [facility] Serum specimen (specimen) 08/21/2017 2:49 PM EST 08/21/2017 3:06 PM EST America Vazquez MD LAB BLOOD ORDERABLES Fi nal Result Performing Organization Address [facility]/ZIP Co de Phone Number [facility] [address] [place] [address]. [address] * Ethanol, Serum (08/21/2017 2:49 PM EST) Pathologist [facility] Ethanol <10 0 - 10 mg/dL 08/21/2017 3:45 PM EST [facility] Serum specimen (specimen) 08/21/2017 2:49 PM EST 08/21/2017 2:57 PM EST America Vazquez MD LAB BLOOD ORDERABLES Fi nal Result Performing Organization Address City/[facility] Co de Phone Number [facility] [address] [place] [address]. [address] * Drug Abuse Panel, Serum (08/21/2017 2:49 PM EST) Pathologist [facility] Oxycodone Negative Cutoff:5 ng/mL 08/23/2017 5:43 PM EST [facility] Propoxyphene Screen, Serum Negative Cutoff:50 ng/mL 08/23/2017 5:43 PM EST [facility] Comment: This test was developed and its performance characteristics determined by [facility]. ??It has not been cleared or approved by the Food and Drug Administration. Barbiturates, Serum Negative Cutoff:0. 1 ug/mL 08/23/2017 5:43 PM EST [facility] Opiates, Serum Negative Cutoff:5 ng/mL 08/23/2017 5:43 PM EST [facility] Phencyclidine, Serum Negative Cutoff:8 ng/mL 08/23/2017 5:43 PM EST [facility] Amphetamines, Serum Negative Cutoff:50 ng/mL 08/23/2017 5:43 PM EST [facility] Cocaine and Metabolites, Serum Negative Cutoff:25 ng/mL 08/23/2017 5:43 PM EST [facility] Marijuana Metabolite, Serum Negative Cutoff:5 ng/mL 08/23/2017 5:43 PM EST [facility] Methadone, Serum Negative Cutoff:25 ng/mL 08/23/2017 5:43 PM EST [facility] Benzodiazepine, Serum Negative Cutoff:20 ng/mL 08/23/2017 5:43 PM EST [facility] Serum specimen (specimen) 08/21/2017 2:49 PM EST 08/23/2017 6:06 PM EST Narrative [facility] - 08/23/2017 6:06 PM EST PERFORMED AT: [employer] [address] [id number] PHARMACY AIDE: Dewey Stokes MD ?? PHONE: [phone] America Vazquez MD LAB BLOOD ORDERABLES Fi nal Result Performing Organization Address [facility]/State/ZIP Co de Phone Number [facility] [address] * (ABNORMAL) IgA (08/21/2017 2:49 PM EST) IgA 578.0(H) 82.0 - 453.0 mg/dL 08/22/2017 9:23 AM EST [facility] Serum specimen (specimen) 08/21/2017 2:49 PM EST 08/21/2017 3:05 PM EST America Vazquez MD LAB BLOOD ORDERABLES Fi nal Result Performing Organization Address City/[facility]/ZIP Co de Phone Number [facility] [address] * CMV IgM Antibody (08/21/2017 2:49 PM EST) Pathologist [facility] CMV IgM Negative Negative 08/22/2017 11:47 AM EST [facility] Comment: Result indicates absence of CMV IgM antibodies. ??A negative result does not always rule out acute hCMV infection. ??The IgM response may not be detectable in early stage of infection or if the patient is immunocompromised. If clinical exposure to hCMV is still suspected, a second sample should be collected within 1-2 weeks. CMV IGM NUM 8.00 0.00 - 29.99 AU/mL 08/22/2017 11:47 AM EST [facility] Serum specimen (specimen) 08/21/2017 2:49 PM EST 08/21/2017 3:06 PM EST America Vazquez MD LAB BLOOD ORDERABLES Fi nal Result Performing Organization Address [facility] Co de Phone Number [facility] [address] [place] [address]. [address] * CMV IgG Antibody (08/21/2017 2:49 PM EST) Pathologist [facility] CMV IgG Negative Negative 08/22/2017 11:36 AM EST [facility] CMV IGG NUM 0.20 0.00 - 0.59 U/mL 08/22/2017 11:36 AM EST [facility] Serum specimen (specimen) 08/21/2017 2:49 PM EST 08/21/2017 3:06 PM EST America Vazquez MD LAB BLOOD ORDERABLES Fi nal Result [facility] [address] [place] [address]. [address] * (ABNORMAL) Ceruloplasmin (08/21/2017 2:49 PM EST) [facility] Ceruloplasmin 16.4(L) 18.0 - 58.0 mg/dL 08/21/2017 4:39 PM EST [facility] Comment: Effective 05/16/2016: The units for ceruloplasmin have changed from mg/L to mg/dL. The new reference range is 18-58 mg/dL. ??Historical values can be converted from mg/L to mg/dL by dividing by a factor of 10. Serum specimen (specimen) 08/21/2017 2:49 PM EST 08/21/2017 3:05 PM EST us America Vazquez MD LAB BLOOD ORDERABLES Fi nal Result Performing Organization Address City/State/[facility] Co de Phone Number [facility] [address] [facility] [place] [address], [facility] * Antimitochondrial antibody (08/21/2017 2:49 PM EST) Pathologist [facility] Anti-Mitochon Ab IFA <20.0 0.0 - 20.0 Units 08/22/2017 1:03 PM EST [facility] Comment: ?Negative ?0.0 - 20.0 ?Equivocal ??20.1 - 24.9 ?Positive ? >24.9 Mitochondrial (M2) Antibodies are found in 90-96% of patients with primary biliary cirrhosis. Serum specimen (specimen) 08/21/2017 2:49 PM EST 08/22/2017 1:06 PM EST Narrative [facility] - 08/22/2017 1:06 PM EST PERFORMED AT: [address] [id number] PHARMACY AIDE: Octavio Best, PhD ?? PHONE: [phone] America Vazquez MD LAB BLOOD ORDERABLES Fi nal Result Performing Organization Address [facility] Co de Phone Number [facility] [address] * TERESA w/reflex to IFA/Comp Panel (08/21/2017 2:49 PM EST) TERESA Screen Negative Negative 08/22/2017 11:22 AM EST [facility] TERESA Ratio 0.30 0.00 - 0.99 ratio 08/22/2017 11:22 AM EST [facility] Serum specimen (specimen) 08/21/2017 2:49 PM EST 08/21/2017 3:05 PM EST America Vazquez MD LAB BLOOD ORDERABLES Fi nal Result Performing Organization Address [facility] de Phone Number [facility] [address] [facility]. [address] * Alpha 1 Antitrypsin AAT Quant & Mutation (08/21/2017 2:49 PM EST) A-1 Antitrypsin 112 90 - 200 mg/dL 08/22/2017 6:31 AM EST [facility] A-1 Antitrypsin Pheno MM 08/23/2017 2:10 PM EST [facility] Comment: ? Phenotype ?? Population ?A-1-AT Concentration ? Incidence % ?Reference Interval ? MM ?86.5% ?96 - 189 ? MS ? 8.0% ?83 - 161 ? MZ ? 3.9% ?60 - 111 ? FM ? 0.4% ?93 - 191 ? SZ ? 0.3% ?42 - ??75 ? SS ? 0.1% ?62 - 119 ? ZZ ? 0.05% ? 16 - ??38 ? FS ? 0.05% ? 70 - 128 ? FZ ?Unknown ?44 - ??88 ? FF ?Unknown ?Unknown Serum specimen (specimen) 08/21/2017 2:49 PM EST 08/23/2017 3:08 PM EST Narrative [facility] - 08/23/2017 3:08 PM EST PERFORMED AT: [address] [id number] PHARMACY AIDE: Octavio Best, PhD ?? PHONE: [phone] PERFORMED AT: [address] [id number] PHARMACY AIDE: Hilton Galvan MD ?? PHONE: [phone] us America Vazquez MD LAB BLOOD ORDERABLES Fi nal Result [facility] [address] [facility] [address] * Antibody screen (08/21/2017 2:49 PM EST) Antibody Screen Positive 08/21/2017 4:09 PM EST [facility] Blood specimen (specimen) 08/21/2017 2:49 PM EST 08/21/2017 3:03 PM EST Narrative [facility] - 08/21/2017 4:10 PM EST Testing performed by [facility] America Vazquez MD BLOOD BANK TEST ORDERAB LES Final Result [facility] [address] * ABO/Rh (08/21/2017 2:49 PM EST) ABO Grouping O 08/21/2017 4:09 PM EST [facility] Rh Type Negative 08/21/2017 4:09 PM EST [facility] Blood specimen (specimen) 08/21/2017 2:49 PM EST 08/21/2017 3:03 PM EST America Vazquez MD BLOOD BANK TEST ORDERAB LES Final Result Performing Organization Address City/[facility] Co de Phone Number [facility] [address] * (ABNORMAL) Renal Function Panel w/EGFR (08/21/2017 2:49 PM EST) Sodium 145 133 - 146 mmol/L 08/21/2017 3:42 PM EST [facility] Potassium 4.0 3.5 - 5.3 mmol/L 08/21/2017 3:42 PM EST [facility] Chloride 109 98 - 110 mmol/L 08/21/2017 3:42 PM EST [facility] CO2 26 21 - 33 mmol/L 08/21/2017 3:42 PM EST [facility] Anion Gap 10 3 - 16 mmol/L 08/21/2017 3:42 PM EST [facility] BUN 18 7 - 25 mg/dL 08/21/2017 3:42 PM EST [facility] Creatinine 1.41(H) 0.60 - 1.30 mg/dL 08/21/2017 3:42 PM EST [facility] Glucose 71 70 - 100 mg/dL 08/21/2017 3:42 PM EST [facility] Calcium 10.3 8.6 - 10.3 mg/dL 08/21/2017 3:42 PM EST [facility] Phosphorus 3.1 2.1 - 4.7 mg/dL 08/21/2017 3:42 PM EST [facility] Albumin 3.7 3.5 - 5.7 g/dL 08/21/2017 3:42 PM EST [facility] Osmolality, Calculated 300 278 - 305 mOsm/kg 08/21/2017 3:42 PM EST [facility] eGFR AA CKD-EPI 70 See note. 8 3:42 PM EST [facility] eGFR NONAA CKD-EPI 61 See note. 08/21/2017 3:42 PM EST [facility] Plasma specimen (specimen) 08/21/2017 2:49 PM EST 08/21/2017 2:56 PM EST Narrative [facility] - 08/21/2017 3:42 PM EST As of 10/13/2015 the estimated [...] equation to estimate glomerular filtration rate. ??Jennifer Senior Executive Assistant Med. 2009:150(9):604-12 us America Vazquez MD LAB BLOOD ORDERABLES Fi nal Result [facility] [address] * (ABNORMAL) Differential (08/21/2017 2:49 PM EST) Neutrophils Relative 68.4 40.0 - 80.0 % 08/21/2017 3:12 PM EST [facility] Lymphocytes Relative 18.2 15.0 - 45.0 % 08/21/2017 3:12 PM EST [facility] Monocytes Relative 8.3 0.0 - 12.0 % 08/21/2017 3:12 PM EST [facility] Eosinophils Relative 4.9 0.0 - 8.0 % 08/21/2017 3:12 PM EST [facility] Basophils Relative 0.2 0.0 - 1.0 % 08/21/2017 3:12 PM EST [facility] nRBC 0 0 - 0 /100 WBC 08/21/2017 3:12 PM EST [facility] Neutrophils Absolute 2,941 1,500 - 7,800 /uL 08/21/2017 3:12 PM EST [facility] Lymphocytes Absolute 783(L) 850 - 3,900 /uL 08/21/2017 3:12 PM EST [facility] Monocytes Absolute 357 200 - 950 /uL 08/21/2017 3:12 PM EST [facility] Eosinophils Absolute 211 15 - 500 /uL 08/21/2017 3:12 PM EST [facility] Basophils Absolute 9 0 - 200 /uL 08/21/2017 3:12 PM EST [facility] Whole blood specimen (specimen) 08/21/2017 2:49 PM EST 08/21/2017 3:02 PM EST us America Vazquez MD LAB BLOOD ORDERABLES [facility] Result [facility] [address] [place] [address], [facility] * (ABNORMAL) CBC (08/21/2017 2:49 PM EST) WBC 4.3 3.8 - 10.8 10E3/uL 08/21/2017 3:12 PM EST [facility] RBC 3.12(L) 4.20 - 5.80 10E6/uL 08/21/2017 3:12 PM EST [facility] Hemoglobin 11.3(L) 13.2 - 17.1 g/dL 08/21/2017 3:12 PM EST [facility] Hematocrit 33.0(L) 38.5 - 50.0 % 08/21/2017 3:12 PM EST [facility] MCV 105.6(H) 80.0 - 100.0 fL 08/21/2017 3:12 PM EST [facility] MCH 36.3(H) 27.0 - 33.0 pg 08/21/2017 3:12 PM EST [facility] MCHC 34.4 32.0 - 36.0 g/dL 08/21/2017 3:12 PM EST [facility] RDW 18.5(H) 11.0 - 15.0 % 08/21/2017 3:12 PM EST [facility] Platelets 146 140 - 400 10E3/uL 08/21/2017 3:12 PM EST [facility] MPV 8.1 7.5 - 11.5 fL 08/21/2017 3:12 PM EST [facility] Whole blood specimen (specimen) 08/21/2017 2:49 PM EST 08/21/2017 3:02 PM EST America Vazquez MD LAB BLOOD ORDERABLES Fi nal Result Performing Organization Address City/State/[facility] Co de Phone Number [facility] [address] * (ABNORMAL) Protime-INR (08/21/2017 2:49 PM EST) Protime 20.4(H) 11.8 - 14.8 seconds 08/21/2017 3:36 PM EST [facility] Comment:Effective 07/12/2017 , the PT and PTMIX reference range has changed from 11.6 -14.4 sec to 11.8-14.8 sec. INR 1.7(H) 0.9 - 1.1 08/21/2017 3:36 PM EST [facility] Comment: RECOMMENDED THERAPEUTIC RANGES USING INR : ?Stable oral anticoagulant therapy: ? 2.0 - 3.0 ?Mechanical prosthetic heart valve: ? 2.5 - 3.5 ?Recurrent acute myocardial infarction: ? 2.5 - 3.5 Plasma specimen (specimen) 08/21/2017 2:49 PM EST 08/21/2017 2:56 PM EST America Vazquez MD LAB BLOOD ORDERABLES Fi nal Result Performing Organization Address [facility] Co de Phone Number [facility] [address] [facility] * (ABNORMAL) Hepatic Function Panel (08/21/2017 2:49 PM EST) Total Bilirubin 8.8(H) 0.0 - 1.5 mg/dL 08/21/2017 3:42 PM EST [facility] Bilirubin, Direct 2.42(H) 0.00 - 0.40 mg/dL 08/21/2017 3:42 PM EST [facility] AST 57(H) 13 - 39 U/L 08/21/2017 3:42 PM EST [facility] ALT 19 7 - 52 U/L 08/21/2017 3:42 PM EST [facility] Alkaline Phosphatase 126(H) 36 - 125 U/L 08/21/2017 3:42 PM EST [facility] Total Protein 6.8 6.4 - 8.9 g/dL 08/21/2017 3:42 PM EST [facility] Albumin 3.7 3.5 - 5.7 g/dL 08/21/2017 3:42 PM EST [facility] Bilirubin, Indirect 6.38(H) 0.00 - 1.10 mg/dL 08/21/2017 3:42 PM EST [facility] Plasma specimen (specimen) 08/21/2017 2:49 PM EST 08/21/2017 2:56 PM EST America Vazquez MD LAB BLOOD ORDERABLES Fi nal Result Performing Organization Address [facility]/ZIP Co de Phone Number [facility] [address] * AFP tumor marker (08/21/2017 2:49 PM EST) AFP-Tumor Marker 3.7 0.0 - 9.0 ng/mL 08/21/2017 4:32 PM EST [facility] Serum specimen (specimen) 08/21/2017 2:49 PM EST 08/21/2017 3:05 PM EST America Vazquez MD LAB BLOOD ORDERABLES Fi nal Result Performing Organization Address City/State/[facility] Co de Phone Number [facility] [address] documented in this encounter Visit Diagnoses Diagnosis Liver 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)- Primary Secondary esophageal varices with bleeding (CMS-HCC) Hepatic encephalopathy (CMS-HCC) Hepatic encephalopathy Pre-transplant evaluation for chronic liver disease S/P TIPS (transjugular intrahepatic portosystemic shunt) Other postprocedural status Pre-transplant evaluation for liver transplant documented in this encounter Additional Health Concerns Assessment Noted Time PHQ-9 Depression Total Score: 0 08/21/19 18 11:00 AM EST documented as of this encounter Care Teams Network Services Project Manager Relationship Specialty Start Date End Date Edgar [place] [address] PCP - General 08/18/17 06/23/21 documented as of this encounter
--- OUTSIDE RECORDS SUMMARY | 2024-07-12 13:02 | XMS_ITS | Encounter Summary ---
Author Organization [facility] Address [facility] [place] [address] Care Team Providers Care Broom Handle Dipper Name Role Phone Edgar Fournier MD Primary Care Provider [phone] Source Comments This information has been disclosed [...] release of HIV test results or diagnoses. [id number] Encounter Details Date Type Department Care Team (Late st Contact Info) Description 09/06/2017 Chart Note [facility] Kidney Transplant at Outpatient [address] [address] Ashish Flood [facility] [address] Social History Tobacco Use Types Packs/Day Years [...] encounter Progress Notes * Ashish Flood - 09/06/2017 11:28 AM EST Ashish graves [facility] [address] Return call from SULMA Nadya Argueta [phone] x [phone] Txp is auth ref [id number] Call Nady[place] [facility] [place] [phone] documented in this encounter Plan of Treatment Upcoming Encounters Date Type Department Care Team (Late st Contact Info) Description 07/15/2024 9:00 AM EST Hospital Encounter [facility] Interventional Radiology [address] [place] [address] Herve Carrillo MD [address] [facility] [address] [place] [address] documented as of this encounter Visit Diagnoses Not on filedocumented in this encounter Additional Health Concerns Assessment Noted Time PHQ-9 Depression Total Score: 0 08/21/19 18 11:00 AM EST documented as of this encounter Care Teams Broom Handle Dipper Relationship Specialty Start Date End Date Edgar Fournier MD [address] [place] [address] [place] [address] PCP - General 08/18/17 06/23/21 documented as of this encounter
--- OUTSIDE RECORDS SUMMARY | 2024-07-12 13:02 | XMS_ITS ---
Author Name Man Sky Address [address] [place] [address] Phone [phone] Organization [facility], NA DOCUMENT DISCLAIMER Multiple document versions may exist, please be sure you review the latest version. The information in the [facility] Progress Note Document represents a providers documented clinical note containing certain health and medical information. It may not contain the complete medical history for the patient and should be independently verified. The represented time in the document is Eastern Time PROVIDER ROUNDING NOTE HHD PROVIDER?ROUNDING?NOTE?D Clinic:?[facility]?HOME?PROGRAM Visit?date:?11/28/2022?00:00?Modality/setting:?HHD Aiden?Eh?-?Chart?#:?[id number] Method?of?Interaction:?Via?Telephone Reason:?Other Comments:?illness Date?of?Interaction:?05/30/2024 ?-?Patient?is?stable ?-?Medications?and?labs?reviewed. 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 Vitals ?Most?recent?vitals:?Date:?05/30/2024?Collected?Date:?? ?04/16/2024?Temperature:?Temperature:?97.4?Pulse:?Pulse:?95?&#160 ;?Respirations:?Respirations:?18?&#160 ;?BP?(Sitting):?160/90?BP?(Sitting):?135/83?&#1 60;?BP?(Standing):?BP?(Standing):?156/96?& #160;?Weight?(kg):?Weight?(kg):?136.2?Height?date:?11/28/2022??& #160;?&# 160;?Height?(cm):?175???&# 160;?&# 160;?? bp?comes?down?with?dialysis,??wgt?132?to?133 HHD?Prescription More?Frequent?Dialysis?-?Based?on?provider's?assessment?of&# 160;patient?condition: ?-?Continue?with?greater?than?3x?more?frequent?dialysis?prescription Note?clinical?response?to?more?frequent?dialysis?or?any&#160 ;changes?to?patient's?condition?that?are?relevant: ?for?volume?control ??01/18/2024?Home?HD?using?NxStage?with?PureFlow?4X&#16 0;Week,?Jackelyn,?Estimated Treatment?Time:?3?hrs?0?min,?CAR?172,?Therapy?Fluid&#16 0;1.0?K?40?Lactate,?Volume?per Tx?50?(liters),?Max?FF:?100?%,?BFR:?450,?DFR:?17 L/hr,?Ordered?Max?UFR:?1 mL/Kg/hr,?EDW?133?(kg),?Access:?AVFiula-Standard,?Clinic?1805- Home?Machine?HHD?NxStage?System?One?S ?11/14/2019 Order?Diagnosis ICD10?Code?Diagnosis?Description ? 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 Urea?Clearance,?Urine?wstdKt/V?1.02?05/21/2024?-?2.6?05/21/24?0.67?03/19/2024?-?2.2?03/19/24?0.73?03/04/2024?-?2.1?03/04/24?? ?-?Adequacy?parameters?reviewed Adequacy ?-?Adequacy?target?met good Anemia ?HGB?g/dL? Transferrin?Sat.?(Calc)?%?Ferritin?ng/mL&#160 ;?9.5?05/21/24? 14?05/21/24?420?05/21/24?? ?9.7?04/24/24? 31?04/24/24?352?04/24/24?? ?11.6?03/19/24?12?03/19/24?298 ?03/19/24?? Erythropoietin-Stimulating?Agent?(LISA)?prescription ??05/30/2024?Mircera?Home?Rx?Supply?PFS?-?150?mcg& #160;Number?of?Pre-Filled?Syringes?Needed?from?Pharmacy?is?1 ,?Clinic?1832-?Entered?By?DamrellJerem ?-?IV?Iron?administered?at?home ?-?Anemia?reviewed iv?fe?given?lisa?given Bone?and?Mineral?Metabolism ??Calcium,?Total?mg/dL?? Calcium,?Corrected?mg/dL ?&#1 60;??Phosphorous?mg/dL??? PTH-Intact,?Plasma?pg/mL ??9.0?05/21/24? 8.8?05/21/24?6.0&#16 0;?05/21/24?2365?05/21/24?8.2?04/24/24? 8.1?04/24/24?4.4&#16 0;?04/24/24?1560?04/24/24?8.6?03/19/24? 8.4?03/19/24?6.7&#16 0;?03/19/24?460?03/19/24?Vitamin?D?25?Hydroxy?ng/mL?Calcimimetics?78.8?08/28/23?-?97.2?11/28/22?-?53.8?03/20/20?-? Calcium:? Phosphorus:??Above?target PTH:?Above?target ?-?Bone?and?mineral?metabolism?parameters?reviewed will?increase?cinacalcet?to?180?and?add?zemplar?(allergic to?calcitriol) Nutrition ?Albumin?g/dL? eNPCR?g/kg/day?Bicarbonate?mEq/L??? Potassium,?Serum?mEq/L ?4.2?05/21/24?-?25?05/21/24?? ?5.1& #160;?05/21/24?? ?4.1?04/24/24?-?21?04/24/24?? ?5.0& #160;?04/24/24?? ?4.3?03/19/24?-?19?03/19/24?? ?5.6& #160;?03/19/24?? ?-?Nutrition?reviewed he?is?now?taking?nahco3?and?lokelma?bid. Home?Medications Home?Medication?Reviewed:?Kati?Carlito?04/30/2024?12:01:11?EDT ?Home?Medications?(updated:?05/30/2024?14:21:14) Patient:?Eh, Aiden ??Shilpi?Low?Dose?Aspirin?(aspirin) 81?mg,?oral,?1?tablet?once?a?day ??carbamazepine?(carbamazepine) 200?mg,?oral,?1?tablet?every?night ??carvedilol?(carvedilol) 25?mg,?oral,?2?tablet?twice?a?day ??CellCept?(mycophenolate?mofetil) 250?mg,?oral,?1?capsule?twice?a?day ??cholecalciferol?(vitamin?D3)?(cholecalciferol?(vitamin?d3)) 625?mcg?(25,000?unit),?oral,?2?capsule?three?times?a week [Jjftszt-Dljrtsgb-Hxqbprxl] ??cinacalcet?(cinacalcet) 60?mg,?oral,?3?tablet?once?a?day [take?with?the?evening?meal] ??clonazepam?(clonazepam) 0.5?mg,?oral,?1?tablet?once?a?day ??cyclosporine?(cyclosporine) 25?mg,?oral,?4?capsule?every?morning ??cyclosporine?(cyclosporine) 25?mg,?oral,?5?capsule?every?night?at?bedtime ??doxazosin?(doxazosin) 8?mg,?oral,?1?tablet?every?night ??entecavir?(entecavir) 0.5?mg,?oral,?1?tablet?once?a?week [Takes?on?Monday] ??ergocalciferol?(vitamin?D2)?(ergocalciferol?(vitamin?d2)) 1,250?mcg?(50,000?unit),?oral,?1?capsule?as?directed [Monday,?Monday,?Monday] ??folic?acid?(folic?acid) 1?mg,?oral,?1?tablet?once?a?day ??gabapentin?(gabapentin) 300?mg,?oral,?1?capsule?once?a?day ??lactulose?(lactulose) 10?gram/15?mL,?oral,?30?ml?once?a?day [for?constipation]... There?are?additional?active?home?medications?for?this?patien t.?Please?view?in?Clinical?Summary Last?Hospitalization ?Admission?Date:?05/14/2024 ?Discharge?Date:?05/16/2024 ?Discharge?Diagnosis: ?-?E87.5?-?Hyperkalemia ?-?E87.21?-?Acute?metabolic?acidosis ?-?T82.49XD?-?Other?complication?of?vascular&#1 60;dialysis?catheter,?subsequent?encounter Access?and?Evaluation Active/Maturing?Accesses ?Type?Position/Location?Status?Access?ID?CVCatheter-Tunneled?Chest?Active?(In?Use)?[id number]?-?-?&# 160;?-? -?-?-?&# 160;?-? -? Thrill ?-?Present Bruit ?-?Normal avf?ligated,?he?has?agreed?to?proceed?with?surgical?eval,?cvc?balky?likely fibrin?sheath Infection Most?Recent?In-center?Antibiotic?Order 05/15/2020?Vancomycin?HCl?750?mg?IV?Every?Treatment?x?1 2?Times,?Clinic?7119-?Entered?By?ACSmith Exam ?-?Vital?signs?reviewed Edema ?-?EXT?-?No?edema per?pt Transplant?Status Topic Exploring?Alternative?Treatment?Options: Kidney?Transplant ?Person?Taught: ?-?Patient ?Additional?Education?Required:?No ?Date?Given:?11/14/2019 Interest?and?Eligibility?(If?changes?are?made,?Please?notify?SW?via?alert?below) ?Date?of?discussion?from?transplant?assessment:?04/13/2024 ?Patient?already?on?transplant?list??No ?Patient?interested?in?transplantation??Yes ?Has?patient's?physician?identified?one?or?more?exclusions per?the ?Contraindication?list?provided?by?the?transplant?center? ??No ?Patient?referred?for?transplantation??Yes,?per?physician?order ?Transplant?Comments: ??03/25?Patient?referred?to[facility];[place],?patient?went?and met?with?transplant?team. ?Trans[facility] ?Transplant?[facility] ?Provider?Transplant?Comment: ??proceeding?with?[facility]aroscopic?[facility] Tobacco?Cessation ??Tobacco?use:?Never?used Man?Jose Daniel,? END OF DOCUMENT
--- OUTSIDE RECORDS SUMMARY | 2024-07-12 13:02 | XMS_ITS | Encounter Summary ---
Author Organization [facility] Address [address] [place] [address] Care Team Providers Care Experience Specialist Name Role Phone Edgar Fournier MD Primary Care Provider [phone] Source Comments This information has been disclosed [...] release of HIV test results or diagnoses. [id number] Health Encounter Details Date Type Department Care Team (Latest Contact Info) Description 09/01/2017 9:06 AM EST - 09/01/2017 11:59 PM EST Hospital Encounter [facility] [address] [place] [phone] Ami Rossi MD [address] [facility] [address] [place] [address] Discharge Disposition: Home or Self Care WITHOUT [...] this encounter Medications at Time of Discharge carvedilol (COREG) 25 MG tablet Take 25 mg by mouth 2 times a day with meals. 10/27/19 18 ergocalciferol (ERGOCALCIFEROL) 50,000 unit capsule Take 50,000 Units by mouth once a week. 10/17/19 18 esomeprazole (NEXIUM) 40 MG capsule Take 40 mg by mouth every morning before breakfast. 10/17/19 18 furosemide (LASIX) 40 MG tablet Take 40 mg by mouth daily. 10/02/19 18 gabapentin (NEURONTIN) 600 MG tablet Take 900 mg by mouth 3 times a day. 12/05/19 18 glimepiride (AMARYL) 1 MG tablet Take 1 mg by mouth before breakfast. 10/17/19 18 insulin glargine (BASAGLAR KWIKPEN) 100 unit/mL (3 mL) InPn Inject 45 Units subcutaneously at bedtime. 10/17/19 18 insulin glulisine (APIDRA SOLOSTAR) 100 unit/mL InPn Inject subcutaneously. 10/17/19 18 lactulose (CHRONULAC) 10 gram/15 mL solutionIndications :hepatic encephalopathy Take 20 g by mouth 3 times a day. Indications: Hepatic Encephalopathy 10/17/19 18 losartan (COZAAR) 50 MG tablet Take 50 mg by mouth daily. 10/17/19 18 metFORMIN (GLUCOPHAGE) 500 MG tablet Take 1,000 mg by mouth 2 times a day with meals. 10/17/19 18 rifAXIMin (XIFAXAN) 550 mg Tab tablet Take 550 mg by mouth 2 times a day. 10/17/19 18 tiZANidine (ZANAFLEX) 4 MG capsule Take 4 mg by mouth at bedtime as needed for Muscle spasms. 11/24/19 18 zinc sulfate (ZINCATE) 220 (50) mg capsule Take 220 mg by mouth 2 times a day. 10/02/19 18 documented as of this encounter Plan of Treatment Upcoming Encounters Date Type Department Care Team (Late st Contact Info) Description 07/15/2024 9:00 AM EST Hospital Encounter [facility] Interventional Radiology [address] [place] [address] Herve Carrillo MD [address] Surgery [place] [phone] Pending Results Name Type Priority Associated Diagnoses Date /Time CT Outside Film Review Imaging Routine 9:06 AM EST Scheduled Orders Name Type Priority Associated Diagnoses Orde r Schedule CT Outside Film Review Imaging Routine As needed for 1 Occurrences starting 09/01/2017 until 09/01/2017 documented as of this encounter Visit Diagnoses Not on filedocumented in this encounter Additional Health Concerns Assessment Noted Time PHQ-9 Depression Total Score: 0 08/21/19 18 11:00 AM EST documented as of this encounter Care Teams Experience Specialist Relationship Specialty Start Date End Date Edgar Fournier MD [address] [place] [address] [place] [phone] PCP - General 08/18/17 06/23/21 documented as of this encounter
--- OUTSIDE RECORDS SUMMARY | 2024-07-12 13:02 | XMS_ITS ---
Author Organization [facility] Address [address] [place] [address] Care Team Providers Care Head Sulfide Operator Name Role Phone Maile Valles RN Unavailable Unavail able Jack Ordoñez MD Unavailable [phone] Estephania Sharif PharmD Unavailable Christine Edgar Tolentino MD Primary Care Provider [phone] Transplant Episode Kidney Candidate [facility] ([place], [place]) - [facility] Referred on 01/12/2021 Marked as Ineligible on 03/03/2021 Reason: Unable to schedule clinic [facility] Kidney CoordinatorLeona Richey RN Phone: N/A Fax: N/A Email: N/A Scores Score Value Updated Exceptions/Reas ons CPRA Not available EPTS (Calc) 76 07/12/2024 [place] Organ Diagnosis Organ Primary Contributory Kidney Other, Specify - Transplant Comp lications Infection History Noted Survival Infection Treatment Organism Resolved Vertebral osteomyelitis ([facility]) 11/14/2022 Care Team Name Role Phone Fax Email Leona Richey RN Kidney Coordinator N/A N/A N/A Enrique Millan MD Referring Physician N/A N/A N/A Events Pre-Transplant Referred: 01/12/2021 Dialysis History Dialysis History Start End Type [facility] 11/28/2022 Home Hemodialysis [phone] [facility] 09/26/2019 11/25/2022 Hemo [facility] Dialysis Center Information Center Phone Fax Address [facility] [phone] [id number] [facility] [phone] [place], [place] [id number]
--- OUTSIDE RECORDS SUMMARY | 2024-07-12 13:02 | XMS_ITS | Encounter Summary ---
Author Organization [facility] Address [facility] [place] [address] Care Team Providers Care Metal Storage Worker Name Role Phone Unavailable Primary Care Provider Unavailabl e Source Comments This information has been disclosed [...] release of HIV test results or diagnoses. [id number] Health Encounter Details Date Type Department Care Team (Late st Contact Info) Description 06/26/2017 Telephone [facility] Liver Transplant at Outpatient Pavilion [address] [place] [address] Lynnette Muhammad MA Social History Tobacco [...] Hospital Encounter [facility] Interventional Radiology [address] [place] [phone] Herve Carrillo MD 3130 [facility] 3[address] [place] [address] documented as of this encounter Visit Diagnoses Not on filedocumented in this encounter
--- OUTSIDE RECORDS SUMMARY | 2024-07-12 13:02 | XMS_ITS ---
Author Organization [facility] Address [address] [place] [address] Care Team Providers Care Round Cutter Operator Name Role Phone Maile Valles RN Unavailable Unavail able Jack Ordoñez MD Unavailable [phone] Estephania Sharif PharmD Unavailable Christine Edgar Tolentino MD Primary Care Provider [phone] Transplant Episode Kidney Candidate [facility] ([place], [place]) [facility] Referred on 11/04/2020 Marked as Ineligible on 11/04/2020 Reason: Patient's BMI Kidney CoordinatorLeona Richey RN Phone: N/A Fax: N/A Email: N/A Scores Score Value Updated Exceptions/Reas ons CPRA Not available EPTS (Calc) 76 07/12/2024 [place] Organ Diagnosis Organ Primary Contributory Kidney Other, Specify - Transplant Comp lications Care Team Name Role Phone Fax Email Leona Richey RN Kidney Coordinator N/A N/A N/A Events Pre-Transplant Referred: 11/04/2020 Dialysis History Dialysis History Start End Type Comments Center 11/28/2022 Home Hemodialysis [phone] [facility] 09/26/2019 11/25/2022 [facility] DIALYSIS Dialysis Center Information Center Phone Fax Address [facility] [phone] 3284 [facility], [address] [address] [facility] [phone] [place] [address]
--- OUTSIDE RECORDS SUMMARY | 2024-07-12 13:02 | XMS_ITS ---
Author Name Man Sky Address [address] [place] [address] Phone [phone] Organization [facility] Kidney Car e, NA DOCUMENT DISCLAIMER Multiple document versions may exist, please be sure you review the latest version. The information in the [facility] Kidney [facility] Progress Note Document represents a providers documented clinical note containing certain health and medical information. It may not contain the complete medical history for the patient and should be independently verified. The represented time in the document is Eastern Time PROVIDER ROUNDING NOTE HHD PROVIDER?ROUNDING?NOTE?D Clinic:?[facility]?HOME?PROGRAM Visit?date:?11/28/2022?00:00?Modality/setting:?HHD Aiden?Eh?-?Chart?#:?[id number] Method?of?Interaction:?Face?to?face Date?of?Interaction:?07/09/2024 ?-?Patient?is?stable ?-?Medications?and?labs?reviewed. 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 ?07/09/2024?Temperature:?Temperature:?96.9?Pulse:?Pulse:?93?&#160 ;?Respirations:?Respirations:?19?&#160 ;?BP?(Sitting):?174/121?BP?(Sitting):?174/121?BP?(Standing):?BP?(Standing):?& #160;?Weight?(kg):?Weight?(kg):?133.8?Height?date:?11/28/2022??& #160;?&# 160;?Height?(cm):?175???&# 160;?&# 160;?? bp?comes?down?with?dialysis,??wgt?132?to?133 HHD?Prescription More?Frequent?Dialysis?-?Based?on?provider's?assessment?of&# 160;patient?condition: ?-?Continue?with?greater?than?3x?more?frequent?dialysis?prescription Note?clinical?response?to?more?frequent?dialysis?or?any&#160 ;changes?to?patient's?condition?that?are?relevant: ?for?volume?control ??07/04/2024?Home?HD?using?NxStage?with?PureFlow?4X&#16 0;Week,?Jackelyn,?Estimated Treatment?Time:?3?hrs?0?min,?CAR?172,?Therapy?Fluid&#16 0;1.0?K?40?Lactate,?Volume?per Tx?50?(liters),?Max?FF:?100?%,?BFR:?450,?DFR:?17 L/hr,?Ordered?Max?UFR:?1 mL/Kg/hr,?EDW?133?(kg),?Access:?CVCatheter-Tunneled,?Clinic?1498- Home?Machine?HHD?NxStage?System?One?S ?11/14/2019 Order?Diagnosis ICD10?Code?Diagnosis?Description ? 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 Urea?Clearance,?Urine?wstdKt/V?0.86?07/01/2024?-?2.4?07/01/24?1.02?05/21/2024?-?2.6?05/21/24?0.67?03/19/2024?-?2.2?03/19/24?? ?-?Adequacy?parameters?reviewed Adequacy ?-?Adequacy?target?met good Anemia ?HGB?g/dL? Transferrin?Sat.?(Calc)?%?Ferritin?ng/mL&#160 ;?10.5?07/01/24?33?07/01/24?530 ?07/01/24?? ?9.5?05/21/24? 14?05/21/24?420?05/21/24?? ?9.7?04/24/24? 31?04/24/24?352?04/24/24?? Erythropoietin-Stimulating?Agent?(LISA)?prescription ??07/03/2024?[facility]?Home?Rx?Supply?PFS?-?150?mcg& #160;Number?of?Pre-Filled?Syringes?Needed?from?Pharmacy?is?1 ,?Clinic?9527-?Entered?By?OsborneCheri ?-?Anemia?reviewed ?-?Anemia?targets?met iv?fe?given?lisa?given Bone?and?Mineral?Metabolism ??Calcium,?Total?mg/dL?? Calcium,?Corrected?mg/dL ?&#1 60;??Phosphorous?mg/dL??? PTH-Intact,?Plasma?pg/mL ??7.8?07/01/24? 7.6?07/01/24?11.0&#1 60;?07/01/24?546?07/01/24?9.0?05/21/24? 8.8?05/21/24?6.0&#16 0;?05/21/24?2365?05/21/24?8.2?04/24/24? 8.1?04/24/24?4.4&#16 0;?04/24/24?1560?04/24/24?Vitamin?D?25?Hydroxy?ng/mL?Calcimimetics?78.8?08/28/23?-?97.2?11/28/22?-?53.8?03/20/20?-? Calcium:? Phosphorus:??Above?target PTH:? pth?down?nicely,?po4?up?has?been?in?hosp?and?did not?get?xphozah Nutrition ?Albumin?g/dL? eNPCR?g/kg/day?Bicarbonate?mEq/L??? Potassium,?Serum?mEq/L ?4.3?07/01/24?-?19?07/01/24?? ?5.4& #160;?07/01/24?? ?4.2?05/21/24?-?25?05/21/24?? ?5.1& #160;?05/21/24?? ?4.1?04/24/24?-?21?04/24/24?? ?5.0& #160;?04/24/24?? ?-?Nutrition?reviewed he?is?now?taking?nahco3?and?lokelma?bid.?k?was?high?7.2?in?the?hosp Home?Medications Home?Medication?Reviewed:?Dipti?Hackett?07/09/2024?11:43:39?EST ?Home?Medications?(updated:?07/08/2024?13:57:32) Patient:?Eh, Aiden ??alprazolam?(alprazolam) 0.5?mg,?oral,?1?tablet?once?a?day ??Shilpi?Low?Dose?Aspirin?(aspirin) 81?mg,?oral,?1?tablet?once?a?day ??carbamazepine?(carbamazepine) 200?mg,?oral,?1?tablet?twice?a?day ??carvedilol?(carvedilol) 25?mg,?oral,?2?tablet?twice?a?day ??CellCept?(mycophenolate?mofetil) 250?mg,?oral,?1?capsule?twice?a?day ??cholecalciferol?(vitamin?D3)?(cholecalciferol?(vitamin?d3)) 625?mcg?(25,000?unit),?oral,?2?capsule?three?times?a week [Ixqvzdu-Cprynrih-Iofobwyx] ??cinacalcet?(cinacalcet) 60?mg,?oral,?3?tablet?once?a?day [take?with?the?evening?meal] ??cyclosporine?(cyclosporine) 25?mg,?oral,?4?capsule?every?morning ??cyclosporine?(cyclosporine) 25?mg,?oral,?5?capsule?every?night?at?bedtime ??doxazosin?(doxazosin) 8?mg,?oral,?1?tablet?every?night ??entecavir?(entecavir) 0.5?mg,?oral,?1?tablet?once?a?week [Takes?on?Monday] ??ergocalciferol?(vitamin?D2)?(ergocalciferol?(vitamin?d2)) 1,250?mcg?(50,000?unit),?oral,?1?capsule?as?directed [Monday,?Monday,?Monday] ??fenofibrate?micronized?(fenofibrate?micronized) 134?mg,?oral,?1?capsule?once?a?day ??fexofenadine?(fexofenadine) 180?mg,?oral,?1?tablet?once?a?day ??folic?acid?(folic?acid) 1?mg,?oral,?1?tablet?once?a?day... There?are?additional?active?home?medications?for?this?patien t.?Please?view?in?Clinical?Summary Last?Hospitalization ?Admission?Date:?06/28/2024 ?Discharge?Date:?06/30/2024 ?Discharge?Diagnosis: ?-?T82.49XA?-?Other?complication?of?vascular&#1 60;dialysis?catheter,?initial?encounter ?-?E87.5?-?Hyperkalemia ?-?E87.21?-?Acute?metabolic?acidosis Access?and?Evaluation Active/Maturing?Accesses ?Type?Position/Location?Status?Access?ID?CVCatheter-Tunneled?Chest?Active?(In?Use)?[id number]?-?-?&# 160;?-? -?-?-?&# 160;?-? -? Referral?made?for?access?revision/intervention avf?ligated,?he?has?agreed?to?proceed?with?surgical?eval,?cvc?balky?likely fibrin?sheath Infection Most?Recent?In-center?Antibiotic?Order 05/15/2020?Vancomycin?HCl?750?mg?IV?Every?Treatment?x?1 2?Times,?Clinic?7119-?Entered?By?ACSmith Exam ?-?Vital?signs?reviewed Pulmonary ?-?LUNGS?-?clear Cardiovascular ?-?CV?-?Blood?pressure?noted ?-?CV?-?RRR Edema ?-?EXT?-?No?edema Transplant?Status Topic Exploring?Alternative?Treatment?Options: Kidney?Transplant ?Person?Taught: ?-?Patient ?Additional?Education?Required:?No ?Date?Given:?11/14/2019 Interest?and?Eligibility?(If?changes?are?made,?Please?notify?SW?via?alert?below) ?Date?of?discussion?from?transplant?assessment:?04/13/2024 ?Patient?already?on?transplant?list??No ?Patient?interested?in?transplantation??Yes ?Has?patient's?physician?identified?one?or?more?exclusions per?the ?Contraindication?list?provided?by?the?transplant?center? ??No ?Patient?referred?for?transplantation??Yes,?per?physician?order ?Transplant?Comments: ??03/25?Patient?referred?to?[facility]in& #160;[facility],?patient?went?and met?with?transplant?team. ?[facility] ?[facility] ?Provider?Transplant?Comment: ??proceeding?with?laparoscopic?transplant?at[facility] Tobacco?Cessation ??Tobacco?use:?Never?used Man?Jose Daniel,? END OF DOCUMENT
--- OUTSIDE RECORDS SUMMARY | 2024-07-12 13:02 | XMS_ITS | Encounter Summary ---
Author Organization [facility] Address [facility] [place] [address] Care Team Providers Care Soil Conservation Technician Name Role Phone Unavailable Primary Care Provider [...] release of HIV test results or diagnoses. [id number] Health Encounter Details Date Type Department Care Team (Late st Contact Info) Description 06/22/2017 Chart Note [facility] Kidney Transplant at Outpatient [address] [address] Ashish Flood [facility] [address] Social History Tobacco Use Types Packs/Day Years Used Date Smoking Tobacco: Never Assessed Sex and Gender Information Value Date Recorded Sex Assigned at Not on file Legal Sex Male 11:05 AM EDT Gender Identity Not on file Sexual Orientation Not on file documented as of this encounter Progress Notes * Ashish Flood - 06/22/2017 2:40 PM EST Ashish graves [facility] [address] New liver referral Active [facility] nick MIRELES signed with nick Will be global Referral is cleared documented in this encounter Plan of Treatment Upcoming Encounters Date Type Department Care Team (Late st Contact Info) Description 07/15/2024 9:00 AM EST Hospital Encounter [facility] Interventional Radiology [address] [place] [address] Herve Carrillo MD [address] [facility] 3[address] [place] [address] documented as of this encounter Visit Diagnoses Not on filedocumented in this encounter
--- OUTSIDE RECORDS SUMMARY | 2024-07-12 13:02 | XMS_ITS | Encounter Summary ---
Author Organization [facility] Address [facility] [place] [address] Care Team Providers Care Photoengraving Machine Operator/Tender Name Role Phone Unavailable Primary Care Provider [...] release of HIV test results or diagnoses. [id number] Health Encounter Details Date Type Department Care Team (Late st Contact Info) Description 04/12/2017 Chart Note [facility] Kidney Transplant at Outpatient [address] [address] Ashish Flood Advised Gerber Solis, he tells me to send him PA auth when received and he Social History Tobacco Use Types Packs/Day Years Used Date Smoking Tobacco: Never Assessed Sex and Gender Information Value Date Recorded Sex Assigned at Not on file Legal Sex Male 11:05 AM EDT Gender Identity Not on file Sexual Orientation Not on file documented as of this encounter Progress Notes * Ashish Flood - 04/12/2017 7:59 AM EDT Advised Gerber Solis, he tells me to send him PA auth when received and he will negotiate a rate. Advised Michelle andrade [facility]. They have been in contact with Gerber and Dewey in [place] to work out a rate Will advise when complated. Per Dewey working out datails on contract will advise No Pa from Michelle Andrade [facility] was ever received, Rate discussions ongoing with yoanan jason [facility] I have no Pa and no ok on contract to proceed. Pends decisions. documented in this encounter Plan of Treatment Upcoming Encounters Date Type Department Care Team (Late st Contact Info) Description 07/15/2024 9:00 AM EST Hospital Encounter [facility] Interventional Radiology [address] [place] [phone] [facility]erve [facility]illo MD [facility] [place] [phone] documented as of this encounter Visit Diagnoses Not on filedocumented in this encounter
--- OUTSIDE RECORDS SUMMARY | 2024-07-12 13:02 | XMS_ITS | Encounter Summary ---
Author Organization [facility] Address [address] [place] [address] Care Team Providers Care Sports Physical Therapist Name Role Phone Edgar Fournier MD Primary Care Provider [phone] Source Comments This information has been disclosed [...] release of HIV test results or diagnoses. [id number] Health Encounter Details Date Type Department Care Team (Late st Contact Info) Description 08/30/2017 Chart Note [facility] Kidney Transplant at Outpatient [address] [address] Ashish Flood count includes the [facility] [address] Social History Tobacco Use Types Packs/Day Years Used Date Smoking Tobacco: Never Smokeless Tobacco: Never Sex and Gender Information Value Date Recorded Sex Assigned at Not on file Legal Sex Male 11:05 AM EDT Gender Identity Not on file Sexual Orientation Not on file documented as of this encounter Progress Notes * Ashish Flood - 08/30/2017 10:10 AM EST Ashish graves count includes the [facility] [address] Liver listed Sent to bandar Patricio tool with clinicals and copy of the [facility] for txp Advising of listing for liver and asking if any additional auths are required for this liver txp fax to [phone] Pends response Liver txp should be ok with this sca in place. documented in this encounter Plan of Treatment Upcoming Encounters Date Type Department Care Team (Late st Contact Info) Description 07/15/2024 9:00 AM EST Hospital Encounter [facility] Interventional Radiology [address] [place] [address] Herve Carrillo MD 5360 [facility] 3[address] Surgery [place] [phone] documented as of this encounter Visit Diagnoses Not on filedocumented in this encounter Additional Health Concerns Assessment Noted Time PHQ-9 Depression Total Score: 0 08/21/19 18 11:00 AM EST documented as of this encounter Care Teams Sports Physical Therapist Relationship Specialty Start Date End Date Edgar [place] [address] PCP - General 08/18/17 06/23/21 documented as of this encounter
--- OUTSIDE RECORDS SUMMARY | 2024-07-12 13:02 | XMS_ITS ---
Author Organization [facility] Address [address] [place] [address] Care Team Providers Care Continuous Dryout Operator Helper Name Role Phone Maile Valles RN Unavailable Unavail able Jack Ordoñez MD Unavailable [phone] Estephania Sharif PharmD Unavailable Christine Edgar Tolentino MD Primary Care Provider [phone] Transplant Episode Liver Recipient [facility] ([place], [place]) [facility] Organ Received: Liver Transplanted on 10/08/2017 Marked as Active Follow-up on 10/08/2017 Liver CoordinatorMaile Valles RN Phone: N/A Fax: N/A Email: N/A [place] Organ Diagnosis Organ Primary Contributory Liver Cirrhosis: Fatty Liver (SAL) Infection History Noted Survival Infection Treatment Organism Resolved 07/16/2020 2 years 9 months 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 Esophageal cand idiasis (CMS-HCC) 06/22/2020 05/28/2020 2 years 7 months Osteomyelitis (CMS-HCC) 07/29/2019 1 year 9 months Prophylaxis for cytomegalovirus 07/20/2019 1 year 9 months 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 Donor Information Organ ABO Source Meets Risk Criteria HLA Match Mismatches Cross Match Liver Transplanted O DBD Yes A: B: DR: Liver Donor Serology Results Anti-CMV CMV IgG: Positive EBV IgG No results on file Anti-HCV HCV Ab: Positive Anti-HBcAb HBC Total: Positive HBsAg No results on file HBV DNA No results on file Anti-HIV I/II No results on file Anti-HTLV I/II No results on file RPR/VDRL No results on file EBV IgM No results on file HBsAb No results on file EBNA No results on file Care Team Name Role Phone Fax Email Maile Valles, JANA Liver Coordinator N/A N/A N/A Edgar Fournier MD Referring Physician N/A N/A N/A Jack Ordoñez MD Txp Wildlife Officer N/A N/A N/A Events Post-Transplant Pre-Transplant Admitted: 10/07/2017 Referred: 06/22/2017 Transplanted: 10/08/2017 Evaluation began: 8 Discharged: 10/27/2017 Committee: 08/29/2017 Center waitlisted: 8 Dialysis History Dialysis History Start End Type Comments Center 11/28/2022 Home Hemodialysis [phone] [facility] 09/26/2019 11/25/2022 Hemo [facility] Dialysis Center Information Center Phone Fax Address [facility] HOME PROGRAM [phone] [address] [facility] [phone] [place] [address]
--- OUTSIDE RECORDS SUMMARY | 2024-07-12 13:02 | XMS_ITS ---
Author Organization [facility] Address [address] [place] [address] Care Team Providers Care High School Drafting Teacher Name Role Phone Maile Valles RN Unavailable Unavail able Jack Ordoñez MD Unavailable [phone] Estephania Sharif PharmD Unavailable Christine Edgar Tolentino MD Primary Care Provider [phone] Transplant Episode Liver Candidate [facility] ([place], [place]) [facility] Referred on 02/03/2017 Marked as Declined on 02/03/2017 Reason: Financial Issues Liver CoordinatorAleta Worthington RN Phone: N/A Fax: N/A Email: N/A Scores Score Value Updated Expires Exceptions/Watrous sons CPRA Not available UNOS MELD Not available MELD (Calc) 19 11/06/2023 [place] Organ Diagnosis Organ Primary Contributory Liver Cirrhosis: Fatty Liver (SAL) Care Team Name Role Phone Fax Email Aleta Worthington RN Liver Coordinator N/A N/A N/A Micha Diaz MD Txp Motorcoach Operator N/A N/A N/A Ami Rossi MD Surgeon N/A N/A N/A Events Pre-Transplant Referred: 02/03/2017 Dialysis History Dialysis History Start End Type [facility] Center 11/28/2022 Home Hemodialysis [phone] [facility] 09/26/2019 11/25/2022 Hemo [facility] Dialysis Center Information Center Phone Fax Address [facility] [phone] [address] [facility] [phone] [place], [place] [address]
--- OUTSIDE RECORDS SUMMARY | 2024-07-12 13:02 | XMS_ITS | Encounter Summary ---
Author Organization [facility] Address [facility] [place] [address] Care Team Providers Care Hair Or Beauty Salon Manager Name Role Phone Edgar Fournier MD Primary Care Provider [phone] Source Comments This information has been disclosed [...] release of HIV test results or diagnoses. 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) (Primary Dx); Pre-transplant evaluation for chronic liver disease; Gastroesophageal reflux disease, esophagitis presence not specified; Essential hypertension; Type 2 diabetes mellitus without complication, with long-term current use of insulin (CMS-HCC) Social History Tobacco Use Types Packs/Day [...] Sign Reading Time Taken Comments Blood Pressure 176/84 08/31/2017 9:45 AM EST Pulse 83 08/31/2017 9:45 AM EST Temperature 36.4 ??C (97.5 ??F) 08/31/2017 9:45 AM ES T Respiratory Rate - - Oxygen Saturation 98% 08/31/2017 9:45 AM EST Inhaled Oxygen Concentration 98% 08/31/2017 9 :45 AM EST Weight 115.7 kg (255 lb) 08/31/2017 9:45 AM EST Height 170.2 cm (5' 7 ) 08/31/2017 9:45 AM EST Body Mass Index 39.94 08/31/2017 9:45 AM EST documented in this encounter H&P Notes * Regi Arias MD - 08/31/2017 9:30 AM EST ANESTHESIOLOGY CONSULTATION AND PRE-OPERATIVE HISTORY AND PHYSICAL Subjective: C ENGINEER Attending Physician: Regi Arias MD C ENGINEER CONSULTANT TECHNOLOGY / PA: Nani Sanchez CNP Date of Surgery: pending Surgeon: Dr. Rossi Diagnosis: ESLD Procedure: Liver transplant Patient ID: Aiden Stauffer is a 42 y.o. male. Patient is being seen today at the request of Dr. Rossi to render an opinion on perioperative risk optimization and to coordinate medical care as necessary prior to the following procedure: Liver transplant. Chief Complaint Patient presents with ??? Pre-op Exam History of Present Illness: This is a 42 yo male with cirrhosis secodary to SAL. He is listed for transplantation at and is presenting for dual-listing. He reports that recent MELD is 25. ??His disease was initially discovered in 2011 incidentally on imaging. He decompensated in 09/2016 with massive variceal bleed necessitating 31 units blood transfusion and TIPS placement. He is also on carvedilol 25mg twice daily. He also developed encephalopathy around that time (prior to TIPS) which is being controlled with xifaxan and lactulose. He does not have ascites. Chronic Medical Conditions, Severity, Optimization: See below Pérez Activity Scale: 4 - Raking leaves; weeding or pushing a power mower. Medical History: Past Medical History: Diagnosis Date ??? Acute pancreatitis ??? Ascites ??? Diabetes mellitus (HCC) ??? Esophageal varices with bleeding (HCC) ??? GERD (gastroesophageal reflux disease) ??? Hepatic encephalopathy (HCC) ??? Hypertension ??? 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 Vitamin D deficiency Surgical History: Past Surgical History: Procedure Laterality Date ??? TIPS PROCEDURE 10/2016 ??? TIPS Revision 04/2017 Family History: Family History Problem Relation Age of Onset ??? Diabetes Sister Social History: Social History Social History ??? Marital status: [...] History Narrative ??? No narrative on file Allergies: Allergies Allergen Reactions ??? Codeine ??? Flexeril [Cyclobenzaprine] Medications: Prior to Admission medications taking for visit date 08/31/17 Medication Sig Taking? Authorizing Provider carvedilol (COREG) 25 MG tablet Take 25 mg by mouth 2 times a day with meals. Yes Historical Provider, ergocalciferol (ERGOCALCIFEROL) 50,000 unit capsule Take 50,000 Units by mouth once a week. Yes Historical Provider, esomeprazole (NEXIUM) 40 MG capsule Take 40 mg by mouth every morning before breakfast. Yes Historical Provider, furosemide (LASIX) 40 MG tablet Take 40 mg by mouth daily. Yes Historical Provider, gabapentin (NEURONTIN) 600 MG tablet Take 600 mg by mouth 3 times a day. Yes Historical Provider, glimepiride (AMARYL) 1 MG tablet Take 1 mg by mouth before breakfast. Yes Historical Provider, insulin glargine (BASAGLAR KWIKPEN) 100 unit/mL (3 mL) InPn Inject subcutaneously at bedtime. Yes Historical Provider, insulin glulisine (APIDRA SOLOSTAR) 100 unit/mL InPn Inject subcutaneously. Yes Historical Provider, lactulose (CHRONULAC) 10 gram/15 mL solution Take 20 g by mouth 3 times a day. Indications: HepaticEncephalopathy Yes Historical Provider, losartan (COZAAR) 50 MG tablet Take 50 mg by mouth daily. Yes Historical Provider, metFORMIN ER (GLUMETZA) 1000 MG (MOD) 24 hr tablet Take 1,000 mg by mouth 2 times a day with meals.Yes Historical Provider, rifAXIMin (XIFAXAN) 550 mg Tab tablet Take 550 mg by mouth 2 times a day. Yes Historical Provider, tiZANidine (ZANAFLEX) 4 MG capsule Take 0.5 mg by mouth at bedtime as needed for Muscle spasms. YesHistorical Provider, zinc sulfate (ZINCATE) 220 (50) mg capsule Take 220 mg by mouth 2 times a day. Historical Provider, BUTRANS 5 mcg/hour PTWK Place 1 patch onto the skin every 7 days. Historical Provider, insulin lispro protamine-insulin lispro (HUMALOG MIX 75/25) 100 unit/mL (75-25) Susp Inject 30 Units subcutaneously 2 times a day before meals. Historical Provider, Review of Systems Constitutional: Negative for chills, fatigue and fever. HENT: Positive for hearing loss. Negative for ear pain, mouth sores, sore throat and trouble swallowing. Eyes: Negative for pain, redness and itching. Respiratory: Negative for cough, chest tightness, shortness of breath and wheezing. Cardiovascular: Negative for chest pain, palpitations and leg swelling. (-) orthopnea Gastrointestinal: Positive for abdominal pain. Negative for constipation, diarrhea, heartburn, nausea and vomiting. Genitourinary: Negative for difficulty urinating, dysuria and hematuria. Musculoskeletal: Positive for back pain, neck pain and neck stiffness. Negative for arthralgias andgait problem. Skin: Positive for color change ( juandice). Negative for pallor, rash and wound. Neurological: Negative for dizziness, seizures, light-headedness, numbness and headaches. Hematological: Bruises/bleeds easily. Psychiatric/Behavioral: Negative for confusion and sleep disturbance. The patient is nervous/anxious. Objective: Blood pressure 176/84, pulse 83, temperature 97.5 ??F (36.4 ??C), temperature source Oral, height 5' 7 (1.702 m), weight (!) 255 lb (115.7 kg), SpO2 98 %. Physical Exam Constitutional: He is oriented to person, place, and time. He appears well- developed and well-nourished. No distress. Body mass index is 39.94 kg/m??. HENT: Head: Normocephalic and atraumatic. Right Ear: Hearing and external ear normal. Left Ear: Hearing and external ear normal. Nose: Nose normal. Mouth/Throat: Uvula is midline, oropharynx is clear and moist and mucous membranes are normal. Teeth - intact, solid Eyes: Conjunctivae, EOM and lids are normal. Pupils are equal, round, and reactive to light. Scleral icterus is present. Neck: Normal range of motion. Neck supple. No JVD present. Carotid bruit is not present. No tracheal deviation present. No thyroid mass and no thyromegaly present. Cardiovascular: Normal rate, regular rhythm, S1 normal, S2 normal and normal heart sounds. Exam reveals no gallop and no friction rub. No murmur heard. Pulses: Carotid pulses are 2+ on the right side, and 2+ on the left side. Radial pulses are 2+ on the right side, and 2+ on the left side. Dorsalis pedis pulses are 2+ on the right side, and 2+ on the left side. Pulmonary/Chest: Effort normal and breath sounds normal. No stridor. No apnea. No respiratory distress. He has no wheezes. He has no rhonchi. He has no rales. Abdominal: Soft. Bowel sounds are normal. He exhibits no distension. There is no tenderness. There is no rebound and no guarding. Musculoskeletal: Normal range of motion. He exhibits no edema or tenderness. Neurological: He is alert and oriented to person, place, and time. He has normal strength. He displays no tremor. No cranial nerve deficit or sensory deficit. He exhibits normal muscle tone. Coordination normal. Skin: Skin is warm and dry. No petechiae, no purpura and no rash noted. He is not diaphoretic. No cyanosis or erythema. Nails show no clubbing. Juandice skin Psychiatric: He has a normal mood and affect. His behavior is normal. Judgment and thought content normal. Airway: Mallampati II (hard and soft palate, upper portion of tonsils anduvula visible), Thyromental distance 3 finger breadths, opening 3 finger breadths Lab Review: Lab Results Component Value Date WBC 4.3 08/21/2017 HGB 11.3 (L) 08/21/2017 HCT 33.0 (L) 08/21/2017 MCH 36.3 (H) 08/21/2017 PLT 146 08/21/2017 GLUCOSE 71 08/21/2017 CREATININE 1.41 (H) 08/21/2017 NA 145 08/21/2017 K 4.0 08/21/2017 CL 109 08/21/2017 CO2 26 08/21/2017 BILITOT 8.8 (H) 08/21/2017 PROT 6.8 08/21/2017 AST 57 (H) 08/21/2017 ALT 19 08/21/2017 ALKPHOS 126 (H) 08/21/2017 CHOLTOT 86 08/21/2017 LDL 41 08/21/2017 HDL 26 (L) 08/21/2017 TRIG 96 08/21/2017 PROTIME 20.4 (H) 08/21/2017 Study Results: Study Results: ECHO with bubble study 04/04/2017 Interpretation Summary: A complete two-dimensional transthoracic echo was performed. The study was technically adequate. Compared to the most recently available prior to echo and allowing for differences in the image quality and technique, there is no significant interval change noted. EF: 69% Myocardial perfusion 04/04/2017 Impression: 1. This is [...] changes comparedto the previous study on 04/29/16. ASA Physical Status: ASA Physical Status: 4 Assessment and Recommendations: This is a 42 yo male with ESLD for liver transplant. Medical issues include: 1. Cardiac - no known CAD, no history of heart failure. ECHO with bubble study in 2016 was normal with EF of 69%. Myocardial perfusion in 03/2017 was normal as well. His functional status is good, Pérez activity of 4. Denies any SOB or CP with activities however he co leg weakness intermittently. 2. HTN - takes carvedilol, losartan and furosemide ( prn). BP today: 176/84, may continue perioperatively. 3. DM - currently on metformin, glimepiride, lantus and apidra. Ave BS is 80- 100, HgbA1c on 08/21/2017 was 5.5%. Reports neuropathy on both lower extremities, takes gabapentin for symptom control. 4. GERD - well controlled with nexium, may continue perioperatively. 5. ESLD - dx in 2011, secondary to SAL. Decompensations include: A) variceal bleed: s/p banding in 09/2016 which lasted for a week and requiring TIPS in 10/2016 B) HE: on xifaxan and lactulose C) MELD-Na score: 24 at 08/21/2017 2:49 PM Calculated from: Serum Creatinine: 1.41 mg/dL at 08/21/2017 2:49 PM Serum Sodium: 145 mmol/L (Rounded to 137) at 08/21/2017 2:49 PM Total Bilirubin: 8.8 mg/dL at 08/21/2017 2:49 PM INR(ratio): 1.7 at 08/21/2017 2:49 PM Age: 42 years 6. Obesity - Body mass index is 39.94 kg/m??. Pre-procedure instructions discussed and given to patient. Labs today: none Bry Sanchez CNP Anesthesia considerations: I have seen and examined the patient, agree with the following findings and plan as above. The patient reported continued voice hoarseness since emergent TIPS procedure at in 09/2016. Patient states that the hoarseness was initially intermittent but has become more persistent. Patient denies problems with breathing, has no SOB, no dysphasia. Patient was notified that he can be referred to an ENT for further workup in the future if wanted. Additionally, patient notesthat he has a history of gallstones, and was told at that he could not have surgery until liver TXP. Patient has intermittent pain associated with the gallstone, but this is a chronic (several years) problem with no acute changes and no current interventions are indicated at this time. Anesthetic plan, risks and benefits were discussed with patient, all questions answered. Patient has no history of anesthetic complications other than the voice hoarseness follow emergent TIPS in 09/2016. Airway does predict difficult management, MP 3, large neck but good neck ROM. Recommend having glidescope available for intubation. Examination of peripheral vasculature does not predict difficult IV access. Anesthetic recommendations: Monitors: Standard ASA monitors, arterial line, CVC, PAC w/ CO monitoring, Intra-op SOCRATES as needed Accesses: PIV(s), central venous access with MAC x 2 Anesthesia type: General anesthesia with endotracheal tube Analgesia: Multi-modal analgesia with IV narcotics PRN Disposition: SICU post-op Manolo Bryant MD Department of Anesthesiology and Perioperative Medicine 08/31/2017 10:17 AM ATTENDING ANESTHESIOLOGIST ADDENDUM: Both Dr. Bryant and I interviewed, examined, and discussed the care of Aiden Stauffer. I reviewed, confirmed, and amended the above note and agree with the findings and plan of care as noted. Additional notes: Hx: Aiden Stafufer is a 42 y.o. male seen today prior to above procedure. PE: Airway MP IIi, Thyromental distance 3 finger breadths, opening 3 finger breadths, Teeth R lowermissing tooth, Neck adequate ROM, relatively large neck circumference. No distress. Studies: As reviewed above. A/P: As amended above. ANESTHETIC Recommendations: I would recommend GETA, glidescope availability, IV narcotics for analgesia, PIV times two for IV access, arterial line, central line, PA catheter, standard ASA monitors, SICU for postoperative disposition, postoperative ventilator support. I discussed alternatives, benefits, and risks. Aiden Stauffer verbalized understanding and agreed to the plan above. I have conveyed my recommendations for perioperative management of this patient???s medical problems through the shared electronic medical record. Anesthesiologist: Regi Arias M.D. 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)- Primary Pre-transplant evaluation for chronic liver disease Gastroesophageal reflux disease, esophagitis presence not specified Essential hypertension Unspecified essential hypertension Type 2 diabetes mellitus without complication, with long-term current use of insulin (CMS-HCC) documented in this encounter Additional Health Concerns Assessment Noted Time PHQ-9 Depression Total Score: 0 08/21/19 18 11:00 AM EST documented as of this encounter Care Teams Hair Or Beauty Salon Manager Relationship Specialty Start Date End Date Edgar Fournier MD [address] [place] [address] [place] [address] PCP - General 08/18/17 06/23/21 documented as of this encounter
--- OUTSIDE RECORDS SUMMARY | 2024-07-12 13:02 | XMS_ITS | Encounter Summary ---
Author Organization [facility] Address [facility] [place] [address] Care Team Providers Care Hide Handler Name Role Phone Edgar Fournier MD Primary Care Provider [phone] Source Comments This information has been disclosed [...] release of HIV test results or diagnoses. 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); S/P TIPS (transjugular intrahepatic portosystemic shunt); Hepatic encephalopathy ([facility] Dx); Secondary esophageal varices with bleeding (CMS-HCC) Social History Tobacco Use Types Packs/Day [...] Time Taken Comments Blood Pressure 140/80 08/21/2017 12:25 PM EST Pulse 73 08/21/2017 12:25 PM EST Temperature 36.4 ??C (97.5 ??F) 08/21/2017 12:[address] Respiratory Rate - - Oxygen Saturation 96% 08/21/2017 12:25 PM EST Inhaled Oxygen Concentration 96% 08/21/2017 1 2:25 PM EST Weight 115.7 kg (255 lb) 08/21/2017 12:25 PM EST Height 170.2 cm (5' 7 ) 08/21/2017 12:25 PM EST Body Mass Index 39.94 08/21/2017 12:25 PM EST documented in this encounter Patient Instructions * Patient Instructions* America Vazquez MD - 08/21/2017 12:30 PM EST 1. Laboratory testing today 2. Continue lactulose/xifaxan for hepatic encephalopathy 3. No driving 4. Obtain records from [facility] 5. Check for immunity to hep A/B, vaccinate if negative 6. Continue ultrasound and AFP every 6 months, last 07/2017 per patient 7. RTC 3m if not transplanted before then documented in this encounter Progress Notes * Micha Diaz MD - 08/21/2017 12:30 PM EST Attending Physician's Note: I have personally seen and examined the patient, have discussed the case with Dr. Vazquez, agree with her note and confirm it. Please see Dr. Vazquez's note separately for more details. A 42 y.o. male with a history of SAL, is here for an initial evaluation. Decompensationsinclude variceal bleed, requiring a TIPS, also on treatment for HE. Has some muscle wasting. PE In no apparent cardiopulmonary distress, icteric Some temporal sarcopenia was noted. No stigmata of liver disease Abdomen is soft, non-tender Alert and oriented times three A&P Decompensated liver disease, will initiate OLT work up today Continue current treatment for HE Pt was encouraged to increase PO intake. Follow up in 3 months. * Aleta Worthington RN - 08/21/2017 12:30 PM EST The patient and support persons participated in multi-disciplinary transplant education. During this visit they met with various members of the of the liver transplant team who addressed their questions and concerns. We discussed the evaluation process, the selection criteria for liver transplant wait-listing, and the risks and benefits of liver transplant. * America Vazquez MD - 08/21/2017 12:30 PM EST Subjective: Aiden Stauffer is a 42 y.o. with cirrhosis presumed secondary to non-alcoholic fatty liver disease who presents for initial liver transplant evaluation. He is listed for transplantation at and is presenting for dual-listing. He reports that recent MELD is 25. His disease was initially discovered in 2011 incidentally on imaging. He decompensated in 09/2016 with massive variceal bleed [id number] units blood transfusion and TIPS placement. He is also on carvedilol 25mg twice daily. He also developed encephalopathy around that time (prior to TIPS) which is being controlled with xifaxan and lactulose. He does not have ascites. ?? Co morbidities include DM, for which he takes insulin, glimepiride and metformin, and HTN, for which he is on coreg 25mg twice daily and recently start on losartan 50mg daily. Stress testing is available for review which is normal. ?? We do not have all of his records, but he reports recent ultrasound and CT scan 07/2017 without HCC. 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 His support plan after transplant is his and mother, who are here with him today. The following portions of the patient's history [...] appears well- developed and well-nourished. No distress. jaundiced HENT: Head: Normocephalic and atraumatic. Right Ear: External ear normal. Left Ear: External ear normal. Nose: Nose normal. Mouth/Throat: Oropharynx is clear and moist. No oropharyngeal exudate. Eyes: Conjunctivae and EOM are normal. Pupils are equal, round, and reactive to light. Right eye exhibits no discharge. Left eye exhibits no discharge. Scleral icterus is present. Neck: Normal range of motion. Neck supple. No JVD present. No tracheal deviation present. No thyromegaly present. Cardiovascular: Normal rate, regular rhythm, normal heart sounds and intact distal pulses. Exam reveals no gallop and no friction rub. No murmur heard. Pulmonary/Chest: Effort normal and breath sounds normal. No respiratory distress. He has no wheezes. He has no rales. He exhibits no tenderness. Abdominal: Soft. Bowel sounds are normal. He exhibits no distension and no mass. There is no tenderness. There is no rebound and no guarding. +obese Musculoskeletal: Normal range of motion. He exhibits no edema, tenderness or deformity. Lymphadenopathy: He has no cervical adenopathy. Neurological: He is alert and oriented to person, place, and time. He has normal reflexes. He displays normal reflexes. No cranial nerve deficit. He exhibits normal muscle tone. Coordination normal. Minimal asterixis Skin: Skin is warm and dry. No rash noted. He is not diaphoretic. No erythema. No pallor. No spider angioma, no palmar erythema Psychiatric: He has a normal mood and affect. His behavior is normal. Judgment and thought content normal. Labs: The patient's recent laboratory results were reviewed. MELD-Na score: 20 at 05/31/2017 12:00 AM Calculated from: Serum Creatinine: 1.39 mg/dL at 05/31/2017 12:00 AM Serum Sodium: 140 mmol/L (Rounded to 137) at 05/31/2017 12:00 AM Total Bilirubin: 5.2 mg/dL at 05/31/2017 12:00 AM INR(ratio): 1.4 at 05/31/2017 12:00 AM Age: 42 years ?? Assessment & Plan: 42 yo F with presumed SAL cirrhosis, decompensated by bleeding esophageal varices s/p TIPS and HE (on lactulose/xifaxan) presents for evaluation for dual listing (listed for OLT at ). He reports recent MELD 25, blood type O. No obvious contraindications to listing. Will obtain laboratory data today and records for pre-op testing from with plans to list in the next 1-2 weeks. ?? 1. Laboratory testing today 2. Continue lactulose/xifaxan for hepatic encephalopathy 3. No driving 4. Obtain records from 5. Check for immunity to hep A/B, vaccinate if negative 6. Continue ultrasound and AFP every 6 months, last 07/2017 per patient 7. RTC 3m if not transplanted before then ?? 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
--- OUTSIDE RECORDS SUMMARY | 2024-07-12 13:02 | XMS_ITS ---
Author Organization [facility] Address [address] [place] [address] Care Team Providers Care Baking Powder Mixer Name Role Phone Maile Valles RN Unavailable Unavail able Jack Ordoñez MD Unavailable [phone] Estephania Sharif PharmD Unavailable Christine Edgar Tolentino MD Primary Care Provider [phone] Transplant Episode Kidney Candidate [facility] ([place], [place]) - [facility] Referred on 10/04/2019 Marked as Ineligible on 10/04/2019 Reason: Patient's BMI Kidney CoordinatorLeona Richey RN Phone: N/A Fax: N/A Email: N/A Scores Score Value Updated Exceptions/Reas ons CPRA Not available EPTS (Calc) 76 07/12/2024 Tribal Organ Diagnosis Organ Primary Contributory Kidney Other, Specify - Transplant Comp lications Care Team Name Role Phone Fax Email Leona Richey RN Kidney Coordinator N/A N/A N/A Jack Ordoñez MD Referring Physician N/A N/A N/A Events Pre-Transplant Referred: 10/04/2019 Dialysis History Dialysis History Start End Type Comments Center 11/28/2022 Home Hemodialysis [phone] [facility] HOME PROGRAM 09/26/2019 11/25/2022 [facility] DIALYSIS Dialysis Center Information Center Phone Fax Address [facility] HOME PROGRAM [phone] 3[address] [facility], [address] [address] [facility] DIALYSIS [phone] [place] [address]
--- OUTSIDE RECORDS SUMMARY | 2024-07-12 13:02 | XMS_ITS | Encounter Summary ---
Author Organization [facility] Address [facility] [place] [address] Care Team Providers Care Server Administrator Name Role Phone Unavailable Primary Care Provider [...] release of HIV test results or diagnoses. [id number] Health Encounter Details Date Type Department Care Team (Late st Contact Info) Description 06/22/2017 Telephone [facility] Liver Transplant at Outpatient Pavilion [address] [place] [address] Lynnette Muhammad MA Social History Tobacco [...] [facility] Interventional Radiology [address] [place] [phone] Herve Carrillo MD 3130 [facility] 3[address] [place] [address] documented as of this encounter Visit Diagnoses Not on filedocumented in this encounter
--- OUTSIDE RECORDS SUMMARY | 2024-07-12 13:02 | XMS_ITS | Encounter Summary ---
Author Organization [facility] Address [facility] [place] [address] Care Team Providers Care Leaf Coverer Name Role Phone Edgar Fournier MD Primary Care Provider [phone] Source Comments This information has been disclosed [...] release of HIV test results or diagnoses. [id number] Encounter Details Date Type Department Care Team (Late st Contact Info) Description 08/18/2017 Chart Note [facility] Kidney Transplant at Outpatient [address] [address] Ashish Flood [facility] [address] Social History Tobacco Use Types Packs/Day Years Used Date Smoking Tobacco: Never Assessed Sex and Gender Information Value Date Recorded Sex Assigned at Not on file Legal Sex Male 11:05 AM EDT Gender Identity Not on file Sexual Orientation Not on file documented as of this encounter Progress Notes * Ashish Flood - 08/18/2017 10:21 AM EST Ashish graves [facility] [address] [facility] signed, to files Acct ID [id number] auth # [id number] Referral was cleared documented in this encounter Plan of Treatment Upcoming Encounters Date Type Department Care Team (Late st Contact Info) Description 07/15/2024 9:00 AM EST Hospital Encounter [facility] Interventional Radiology [address] [place] [address] Herve Carrillo MD 3130 [facility] 3200 [place] [phone] documented as of this encounter Visit Diagnoses Not on filedocumented in this encounter Care Teams Leaf Coverer Relationship Specialty Start Date End Date Edgar Fournier MD [address] [place] [address] PCP - General 08/18/17 06/23/21 documented as of this encounter
--- OUTSIDE RECORDS SUMMARY | 2024-07-12 13:02 | XMS_ITS ---
Author Name Man Sky Address [address] [place] [address] Phone [phone] Organization [facility]ney Car e, NA DOCUMENT DISCLAIMER Multiple document versions may exist, please be sure you review the latest version. The information in the [facility]ney [facility] Progress Note Document represents a providers documented clinical note containing certain health and medical information. It may not contain the complete medical history for the patient and should be independently verified. The represented time in the document is Eastern Time PROVIDER ROUNDING NOTE HHD PROVIDER?ROUNDING?NOTE?D Clinic:?[facility]?HOME?PROGRAM Visit?date:?11/28/2022?00:00?Modality/setting:?HHD Aiden?Eh?-?Chart?#:?[id number] Method?of?Interaction:?Face?to?face Date?of?Interaction:?12/19/2023 ?-?Patient?is?stable ?-?Medications?and?labs?reviewed. 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?& #160;?&# 160;?Height?(cm):?175???&# 160;?&# 160;?? bp?drops?with?dialysis?he?may?need?midodrine HHD?Prescription More?Frequent?Dialysis?-?Based?on?provider's?assessment?of&# 160;patient?condition: ?-?Continue?with?greater?than?3x?more?frequent?dialysis?prescription Note?clinical?response?to?more?frequent?dialysis?or?any&#160 ;changes?to?patient's?condition?that?are?relevant: ?for?volume ??10/12/2023?Home?HD?using?NxStage?with?PureFlow?4X&#16 0;Week,?MonTueThuFri,?Estimated Treatment?Time:?3?hrs?0?min,?CAR?172,?Therapy?Fluid&#16 0;1.0?K?40?Lactate,?Volume?per Tx?50?(liters),?Max?FF:?100?%,?BFR:?450,?DFR:?17 L/hr,?Ordered?Max?UFR:?1 mL/Kg/hr,?EDW?135?(kg),?Access:?[facility],?Clinic?1096- Home?Machine?HHD?NxStage?System?One?S ?11/14/2019 Order?Diagnosis ICD10?Code?Diagnosis?Description ? N18.6?End?stage?renal?disease Adequacy ?Daangelinairdavelasquez?II?spKt/V?? Urea?Clearance,?Urine?wstdKt/V?0.82?11/19/2023?-?2.0?11/19/23?0.78?11/12/2023?-?1.9?11/12/23?0.68?10/22/2023?-?1.8?10/22/23?? ?-?Adequacy?parameters?reviewed Adequacy ?-?Adequacy?target?met good Anemia ?HGB?g/dL? Transferrin?Sat.?(Calc)?%?Ferritin?ng/mL&#160 ;?11.6?11/19/23?40?11/19/23?419 ?11/19/23?? ?10.3?11/12/23?23?10/22/23?420 ?10/22/23?? ?11.8?10/22/23?36?09/19/23?494 ?09/19/23?? ?-?Anemia?reviewed ?-?Anemia?targets?met mircera?on?hold Bone?and?Mineral?Metabolism ??Calcium,?Total?mg/dL?? Calcium,?Corrected?mg/dL ?&#1 60;??Phosphorous?mg/dL??? PTH-Intact,?Plasma?pg/mL ??9.1?11/19/23? 8.9?11/19/23?4.3&#16 0;?11/19/23?590?11/19/23?8.8?10/22/23? 8.6?10/22/23?8.4&#16 0;?10/22/23?1859?10/22/23?8.3?09/19/23? 8.1?09/19/23?6.2&#16 0;?09/19/23?1501?09/19/23?Vitamin?D?25?Hydroxy?ng/mL?Calcimimetics?78.8?08/28/23?-?97.2?11/28/22?-?53.8?03/20/20?-? Calcium:?At?target Phosphorus:??At?target PTH:?At?target he?is?tolerating?xphozah?will?increase?dose,?he?is?on&# 160;cinacalcet?for?hyperpara Nutrition ?Albumin?g/dL? eNPCR?g/kg/day?Bicarbonate?mEq/L??? Potassium,?Serum?mEq/L ?4.3?11/19/23?-?19?11/19/23?? ?6.5& #160;?11/19/23?? ?4.2?10/22/23?-?23?10/22/23?? ?7.5& #160;?11/12/23?? ?4.3?09/19/23?-?17?09/19/23?? ?6.4& #160;?10/22/23?? ?-?Nutrition?reviewed he?was?not?taking?lokelma?or?nahco3?as?prescribed Home?Medications Home?Medication?Reviewed:?Marilin?Leffew?12/19/2023?11:31:28?EDT ?Home?Medications?(updated:?11/23/2023?11:57:39) Patient:?Eh, Aiden ??Shilpi?Low?Dose?Aspirin?(aspirin) 81?mg,?oral,?1?tablet?once?a?day ??carbamazepine?(carbamazepine) 200?mg,?oral,?1?tablet?every?night ??carvedilol?(carvedilol) 25?mg,?oral,?2?tablet?twice?a?day ??CellCept?(mycophenolate?mofetil) 250?mg,?oral,?1?capsule?twice?a?day ??cholecalciferol?(vitamin?D3)?(cholecalciferol?(vitamin?d3)) 625?mcg?(25,000?unit),?oral,?2?capsule?three?times?a week [Ecvedoe-Ijihjnmq-Saozwsfi] ??cinacalcet?(cinacalcet) 60?mg,?oral,?2?tablet?once?a?day [take?with?the?evening?meal] ??clonazepam?(clonazepam) 0.5?mg,?oral,?1?tablet?once?a?day ??cyclosporine?(cyclosporine) 25?mg,?oral,?4?capsule?every?morning ??cyclosporine?(cyclosporine) 25?mg,?oral,?5?capsule?every?night?at?bedtime ??doxazosin?(doxazosin) 8?mg,?oral,?1?tablet?every?night ??entecavir?(entecavir) 0.5?mg,?oral,?1?tablet?once?a?week [Takes?on?Monday] ??ergocalciferol?(vitamin?D2)?(ergocalciferol?(vitamin?d2)) 1,250?mcg?(50,000?unit),?oral,?1?capsule?as?directed [Monday,?Monday,?Monday] ??folic?acid?(folic?acid) 1?mg,?oral,?1?tablet?once?a?day ??gabapentin?(gabapentin) 300?mg,?oral,?1?capsule?once?a?day ??lactulose?(lactulose) 10?gram/15?mL,?oral,?30?ml?once?a?day [for?constipation]... There?are?additional?active?home?medications?for?this?patien t.?Please?view?in?Clinical?Summary Last?Hospitalization ?Admission?Date:?11/04/2023 ?Discharge?Date:?11/07/2023 ?Discharge?Diagnosis: ?-?N18.6?-?End?stage?renal?disease ?-?R22.9?-?Localized?swelling,?mass?and?lump,?unspecified Access?and?Evaluation Active/Maturing?Accesses ?Type?Position/Location?Status?Access?ID?AVFistula-Standard?Forearm-Left?Temporarily? Unusable?[id number]?CVCatheter-Tunneled?Chest?Active?(In?Use)?[id number]?-?-?&# 160;?-? -? avf?ligated,?he?is?getting?an?appt?with?u?susan?for new?avf Infection Most?Recent?In-center?Antibiotic?Order 05/15/2020?Vancomycin?HCl?750?mg?IV?Every?Treatment?x?1 2?Times,?Clinic?7119-?Entered?By?ACSmith Exam ?-?Vital?signs?reviewed Pulmonary ?-?LUNGS?-?clear Cardiovascular ?-?CV?-?Blood?pressure?noted ?-?CV?-?RRR Edema ?-?EXT?-?No?edema Transplant?Status Topic Exploring?Alternative?Treatment?Options: Kidney?Transplant ?Person?Taught: ?-?Patient ?Additional?Education?Required:?No ?Date?Given:?11/14/2019 Interest?and?Eligibility?(If?changes?are?made,?Please?notify?SW?via?alert?below) ?Date?of?discussion?from?transplant?assessment:?03/10/2023 ?Patient?already?on?transplant?list??No ?Patient?interested?in?transplantation??Yes ?Has?patient's?physician?identified?one?or?more?exclusions per?the ?Contraindication?list?provided?by?the?transplant?center? ??No ?Patient?referred?for?transplantation??Yes,?per?physician?order ?Transplant?center/[place]:[facility] ?Provider?Transplant?Comment: ??transplant?on?hold?for?bmi,?he?is?looking?into&# 160;laparoscopic?transplant?at?[facility] Tobacco?Cessation ??Tobacco?use:?Never?used Man?Jose Daniel,? END OF DOCUMENT
--- OUTSIDE RECORDS SUMMARY | 2024-07-12 13:02 | XMS_ITS | Encounter Summary ---
Author Organization [facility] Address [facility] [place] [address] Care Team Providers Care Commercial Diver Name Role Phone Edgar Fournier MD Primary Care Provider [phone] Source Comments This information has been disclosed [...] release of HIV test results or diagnoses. [id number] Encounter Details Date Type Department Care Team (Late st Contact Info) Description 08/25/[address] [facility] SOC[facility] [address] [place] [address] Chiquita Rosdao, RADHA [address] [place] [address] Social History Tobacco Use Types Packs/Day Years Used Date Smoking Tobacco: Never Smokeless Tobacco: Never Sex and Gender Information Value Date Recorded Sex Assigned at Not on file Legal Sex Male 11:05 AM EDT Gender Identity Not on file Sexual Orientation Not on file documented as of this encounter Progress Notes * RADHA Kline - 08/25/2017 1:40 PM EST OSOTC Summary emailed to Aleta Worthington. DT is a 42-year-old male who resides with his , Lesli, and 2 adult sons. Hehas a high school education. He is not working as he is retired and receiving social security. 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 He was never in the . His hobbies include training horses. DT has been to his for 26 years. He has 3 children, all sons, ages 24, 21, and 18. He has two grandchildren on the way, both due in March, just weeks apart. He was born in [place], [place], and raised by his mother and grandparents. His father is . DT denies a history of diagnosis or treatment of psychiatric disorders. He denies a history of alcohol or drug addiction. DT???s will provide 24-hour care post-transplant. He states that he has a good understanding of liver transplant and is choosing this as his treatment option. documented in this encounter Plan of Treatment Upcoming Encounters Date Type Department Care Team (Late st Contact Info) Description 07/15/2024 9:00 AM EST Hospital Encounter [facility] Interventional Radiology [address] [place] [phone] Herve Carrillo MD 3130 [facility] 3200 [place] [phone] documented as of this encounter Visit Diagnoses Not on filedocumented in this encounter Additional Health Concerns Assessment Noted Time PHQ-9 Depression Total Score: 0 08/21/19 18 11:00 AM EST documented as of this encounter Care Teams Commercial Diver Relationship Specialty Start Date End Date Edgar Fournier [place] [address] PCP - General 08/18/17 06/23/21 documented as of this encounter
--- OUTSIDE RECORDS SUMMARY | 2024-07-12 13:02 | XMS_ITS | Encounter Summary ---
Author Organization Health Address [facility] [place] [address] Care Team Providers Care Enamel Burner Name Role Phone Edgar Fournier MD Primary Care Provider [phone] Source Comments This information has been disclosed [...] release of HIV test results or diagnoses. [id number] Encounter Details Date Type Department Care Team (Late st Contact Info) Description 09/04/2017 Chart Note [facility] Liver Transplant at Outpatient [address] [address] Aleta Worthington, RN UNOS VERIFICATION CHECK FORM Social History Tobacco Use Types Packs/Day Years [...] Progress Notes * Aleta Worthington RN - 09/04/2017 9:32 AM EST UNOS VERIFICATION CHECK FORM First Name jf Last Name jf Middle Initial na Date of jf SS# jf Center ID# (MRN) jf ABO x 2 jf/jf I have verified the two (2) blood type results for this candidate are the same blood type and matchthe results reported in UNet. Listing date in Epic jf And UNOS match Listing date notification jf letter match Epic and UNOS Physical Capacity jf Working for Income jf * Lynnette Muhammad MA - 09/04/2017 9:32 AM EST UNOS VERIFICATION CHECK FORM First Name bt Last Name bt Middle Initial bt Date of bt SS# bt Center ID# (MRN) bt ABO x 2 bt/bt I have verified the two (2) blood type results for this candidate are the same blood type and matchthe results reported in UNet. Listing date in Epic bt And UNOS match Listing date notification bt letter match Epic and OS Physical Capacity bt Working for Income bt documented in this encounter Plan of Treatment Upcoming Encounters Date Type Department Care Team (Late st Contact Info) Description 07/15/2024 9:00 AM EST Hospital Encounter [facility] Interventional Radiology [address] [place] [phone] Herve Carrillo MD 3130 [facility] 3200 Surgery [place] [address] documented as of this encounter Visit Diagnoses Not on filedocumented in this encounter Additional Health Concerns Assessment Noted Time PHQ-9 Depression Total Score: 0 08/21/19 18 11:00 AM EST documented as of this encounter Care Teams Enamel Burner Relationship Specialty Start Date End Date Edgar Fournier MD [address] [place] [address] [place] [address] PCP - General 08/18/17 06/23/21 documented as of this encounter
--- OUTSIDE RECORDS SUMMARY | 2024-07-12 13:02 | XMS_ITS ---
Author Name Man Sky Address [address] [place] [address] Phone [phone] Organization [facility] Car e, NA DOCUMENT DISCLAIMER Multiple document versions may exist, please be sure you review the latest version. The information in the [facility] Progress Note Document represents a providers documented clinical note containing certain health and medical information. It may not contain the complete medical history for the patient and should be independently verified. The represented time in the document is Eastern Time PROVIDER ROUNDING NOTE HHD PROVIDER?ROUNDING?NOTE?D Clinic:?[facility]?HOME?PROGRAM Visit?date:?11/28/2022?00:00?Modality/setting:?HHD Aiden?Eh?-?Chart?#:?[id number] Method?of?Interaction:?Face?to?face Date?of?Interaction:?07/27/2023 ?-?Patient?is?stable ?-?Medications?and?labs?reviewed. 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 Vitals ?Most?recent?vitals:?Date:?07/27/2023?Collected?Date:?Temperature:?Temperature:?&#1 60;?Pulse:?Pulse:?& #160;?Respirations:?Respirations:?& #160;?BP?(Sitting):?130/80?BP?(Sitting):?&#1 60;?BP?(Standing):?BP?(Standing):?& #160;?Weight?(kg):?Weight?(kg):?133.4?Height?date:?11/28/2022??& #160;?&# 160;?Height?(cm):?175???&# 160;?&# 160;?? HHD?Prescription More?Frequent?Dialysis?-?Based?on?provider's?assessment?of&# 160;patient?condition: ?-?Continue?with?greater?than?3x?more?frequent?dialysis?prescription Note?clinical?response?to?more?frequent?dialysis?or?any&#160 ;changes?to?patient's?condition?that?are?relevant: ?for?volume ??06/01/2023?Home?HD?using?NxStage?with?PureFlow?4X&#16 0;Week,?NichouFri,?Estimated Treatment?Time:?3?hrs?0?min,?CAR?172,?Therapy?Fluid&#16 0;1.0?K?40?Lactate,?Volume?per Tx?50?(liters),?Max?FF:?100?%,?BFR:?450,?DFR:?17 L/hr,?Ordered?Max?UFR:?1 mL/Kg/hr,?EDW?134?(kg),?Access:?AVFistula-Standard,?Clinic?2198- Home?Machine?HHD?NxStage?System?One?S ?11/14/2019 Order?Diagnosis ICD10?Code?Diagnosis?Description ? N18.6?End?stage?renal?disease Adequacy ?Daangelinairdas?II?spKt/V?? Urea?Clearance,?Urine?wstdKt/V?0.75?07/23/2023?-?2.4?07/23/23?0.88?06/14/2023?-?2.7?06/14/23?0.69?05/24/2023?-?2.0?05/24/23?? ?-?Adequacy?parameters?reviewed Adequacy ?-?Adequacy?target?met good,?he?wants?to?cut?time Anemia ?HGB?g/dL? Transferrin?Sat.?(Calc)?%?Ferritin?ng/mL&#160 ;?12.4?07/23/23?34?07/23/23?580 ?05/24/23?? ?11.4?06/29/23?51?06/29/23?799 ?02/16/23?? ?12.6?06/14/23?37?06/14/23?472 ?11/28/22?? ?-?Anemia?reviewed mircera?on?hold Bone?and?Mineral?Metabolism ??Calcium,?Total?mg/dL?? Calcium,?Corrected?mg/dL ?&#1 60;??Phosphorous?mg/dL??? PTH-Intact,?Plasma?pg/mL ??8.0?07/23/23? 7.8?07/23/23?8.3&#16 0;?07/23/23?1690?07/23/23?9.0?06/14/23? 8.8?06/14/23?10.4&#1 60;?06/29/23?1811?06/29/23?8.2?05/24/23? 8.0?05/24/23?7.2&#16 0;?06/14/23?1415?06/14/23?Vitamin?D?25?Hydroxy?ng/mL?Calcimimetics?97.2?11/28/22?-?53.8?03/20/20?-?49.2?02/17/20?-? diarrhea?on?calcitriol,?velphoro,?sevelamer,?and?auryxia.??constipation?on lanthanum.??constipation?on?tabatha?acetate?4?and?velphoro?2?with?meals.??will?try xphozah?but?will?likely?cause?diarrhea.?he?is?also?on cinacalcet?90?again. Nutrition ?Albumin?g/dL? eNPCR?g/kg/day?Bicarbonate?mEq/L??? Potassium,?Serum?mEq/L ?4.2?07/23/23?-?24?07/23/23?? ?5.1& #160;?07/23/23?? ?4.3?06/14/23?-?21?06/14/23?? ?5.4& #160;?06/14/23?? ?4.2?05/24/23?-?21?05/24/23?? ?4.8& #160;?05/24/23?? ?-?Nutrition?reviewed good Home?Medications Home?Medication?Reviewed:?Marilin?Tanjaw?07/27/2023?10:55:33?EST ?Home?Medications?(updated:?07/27/2023?11:24:18)??Patient:?Eh,?Aiden ?Shilpi?Low?Dose?Aspirin?(aspirin) ?81?mg,?oral,?1?tablet?once?a?day ?calcium?acetate(phosphat?bind)?(calcium?acetate(phosphat?bind)) ?667?mg,?oral,?4?capsule?three?times?a?day ?[Take?1?w/?snacks] ?carbamazepine?(carbamazepine) ?200?mg,?oral,?1?tablet?every?night ?carvedilol?(carvedilol) ?25?mg,?oral,?2?tablet?twice?a?day ?CellCept?(mycophenolate?mofetil) ?250?mg,?oral,?1?capsule?twice?a?day ?cholecalciferol?(vitamin?D3)?(cholecalciferol?(vitamin?d3)) ?625?mcg?(25,000?unit),?oral,?2?capsule?three?times a?week ?[Kkurkjn-Cghpfppf-Dflfgeci] ?cinacalcet?(cinacalcet) ?90?mg,?oral,?1?tablet?once?a?day ?[take?with?the?evening?meal] ?cyclosporine?(cyclosporine) ?100?mg,?oral,?1?capsule?twice?a?day ?doxazosin?(doxazosin) ?8?mg,?oral,?1?tablet?every?night ?entecavir?(entecavir) ?0.5?mg,?oral,?1?tablet?once?a?week ?[Takes?on?Monday] ?folic?acid?(folic?acid) ?1?mg,?oral,?1?tablet?once?a?day ?gabapentin?(gabapentin) ?100?mg,?oral,?1?capsule?twice?a?day ?Humulin?70/30?U-100?KwikPen?(insulin?nph?and?regular?human) ?100?unit/mL?(70-30),?subQ,?48?unit?four?times?a?day ?[sliding?scale] ?hydralazine?(hydralazine) ?100?mg,?oral,?1?tablet?twice?a?day ?lactulose?(lactulose) ?10?gram/15?mL,?oral,?30?ml?once?a?day... There?are?additional?active?home?medications?for?this?patien t.?Please?view?in?Clinical?Summary Access?and?Evaluation Active/Maturing?Accesses ?Type?Position/Location?Status?Access?ID?AVFistula-Standard?Forearm-Left?Activ e?(In?Use)?[id number]?-?-?&# 160;?-? -?-?-?&# 160;?-? -? Thrill ?-?Present Bruit ?-?Normal pt?underwent?angioplasty?of?avf?at?[facility]?now?having?less pain Infection Most?Recent?In-center?Antibiotic?Order 05/15/2020?Vancomycin?HCl?750?mg?IV?Every?Treatment?x?1 2?Times,?Clinic?[facility]-?Entered?By?ACSmith Exam ?-?Vital?signs?reviewed Pulmonary ?-?LUNGS?-?clear Cardiovascular ?-?CV?-?Blood?pressure?noted ?-?CV?-?RRR Edema ?-?EXT?-?No?edema Transplant?Status Topic Exploring?Alternative?Treatment?Options: Kidney?Transplant ?Person?Taught: ?-?Patient ?Additional?Education?Required:?No ?Date?Given:?11/14/2019 Interest?and?Eligibility?(If?changes?are?made,?Please?notify?SW?via?alert?below) ?Date?of?discussion?from?transplant?assessment:?03/10/2023 ?Patient?already?on?transplant?list??No ?Patient?interested?in?transplantation??Yes ?Has?patient's?physician?identified?one?or?more?exclusions per?the ?Contraindication?list?provided?by?the?transplant?center? ??No ?Patient?referred?for?transplantation??Yes,?per?physician?order ?Transplant?Comments: ??Pt?stated?already?working?with?[facility],?working?on?son?getting?evaluated?for?live donor. ??03/10/23?Pt?is?working?with?[facility]?on?transplant,?has?3?familly?members?interested in?being?living?donor.?continue?to?monitor?and?assist?ongoing. ?Transplant?[place] Tobacco?Cessation ??Tobacco?use:?Never?used Man?Jose Daniel,? END OF DOCUMENT
--- OUTSIDE RECORDS SUMMARY | 2024-07-12 13:02 | XMS_ITS | Encounter Summary ---
Author Organization [facility] Address [facility] [place] [address] Care Team Providers Care Uncrater Name Role Phone Unavailable Primary Care Provider [...] release of HIV test results or diagnoses. [id number] Health Encounter Details Date Type Department Care Team (Late st Contact Info) Description 02/03/[address] [facility] [place] [id number] Marilin Us, REBEKAH Social History Tobacco Use Types Packs/Day [...] Encounter [facility] Interventional Radiology [address] [place] [id number] Herve Carrillo MD [address] [facility] [address] [facility] [place] [address] documented as of this encounter Visit Diagnoses Not on filedocumented in this encounter
--- OUTSIDE RECORDS SUMMARY | 2024-07-12 13:02 | XMS_ITS | Encounter Summary ---
Author Organization [facility] Address [facility] [place] [address] Care Team Providers Care Web Search Evaluator Name Role Phone Edgar Fournier MD Primary Care Provider [phone] Source Comments This information has been disclosed [...] release of HIV test results or diagnoses. [id number] Encounter Details Date Type Department Care Team (Late st Contact Info) Description 08/21/2017 Social Work [facility] [address] [place] [address] Chiquita Rosado, RADHA [address] [place] [address] Social History Tobacco Use Types Packs/Day Years Used Date Smoking Tobacco: Never Smokeless Tobacco: Never Sex and Gender Information Value Date Recorded Sex Assigned at Not on file Legal Sex Male 11:05 AM EDT Gender Identity Not on file Sexual Orientation Not on file documented as of this encounter Progress Notes * RADHA Kline - 08/21/2017 4:40 PM EST TRANSPLANT PSYCHOSOCIAL ASSESSMENT Support Persons: Kym- [phone] Kimberly- Mother [phone] Client's Perception of Medical Condition: Patient is referred for liver transplant evaluation in the liver transplant clinic. I met with him in our Multi D clinic to complete a liver transplant psychosocial assessment. 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 He has been listed at another center in [place] for over 1 year. Patient reports that he also has type 2 diabetes that he manages with medication and injections. He has a PCP that he follows with regularly, Dr. Hoff. Patient reports that he spoke with someone that has had a transplant at this center and highly recommended that he consider listing here. Encouraged patient to keep contact with transplant recipient for added support. Patient reports that he is adherent with medications and has not missed a dose in the last 4 weeks.Patient's manages all medications. Suggested and provided a pill box for patient and to utilize to help with organization and getting used to that process. Patient states that he understands the process of liver transplant, and he is choosing liver transplant as his treatment option. Support Plan: Patient???s will provide 24 hour post-transplant support and will be able to provide transportation. Patient's does not work and will be available to assist at all times. She will also havethe help of her sons and patient's mother. He has a handout describing exactly what type of supportthat he will need post-transplant. Patient and are aware of the weekly clinic appointment requirement, post transplant. Patient lives approximately 1 hour and 15 minutes from [facility]. Patient is aware that he will be expected to follow with [facility], for post transplant care. Advance Directives completed and turned in today. He has named his as his POA. Psychiatric History: Patient denies a history of diagnosis or treatment of psychiatric disorders. Alcohol/Other Drug History: He denies a history of alcohol or drug addiction. Narcotic Pain Medication: Patient is not currently taking any narcotic medication. Past and Current Life / Social Situation: Patient is a 42 year old male who resides with his and their two sons. He has a highschool education. He is not working as he is retired and receiving social security. 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 He was never in the . His hobbies include training horses. Family History: Patient and his have been 26 years. They have 3 children, all sons, ages 24, 21, and 18. They have two grandchildren on the way, both due in March, just weeks apart. He was born in [place], [place], and raised by his mother and grandparents. His father is . 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 Evaluation/Impression: Patient is a 42 year old male who resides with his and two adult sons in single story home with 4 steps to enter. He is independent with all household tasks and does not require HHC at this time. Patient drives, but is not allowed at this time due, to encephalopathy Patient's , mother, and sons will provide post transplant care. Patient denies a history of diagnosis or treatment of psychiatric disorders. Patient is not currently taking any narcotic medication. Advance Directives are completed. SW discussed psychosocial risks from the transplant, such as PTSD, generalized anxiety disorder, and anxiety about being dependent on others. I also explained that he may have guilt feelings. We discussed the potential psychiatric side effects of medications that he will be on during the post transplant phase. I explained that these medications especially prednisone can cause mood swings and anxiety and gave the patient a chance to ask questions. I verbally discussed the patient???s psychosocial evaluation with the transplant visual and stock associate and surgeon while in clinic. The patient participated in the interview and he has a good understanding ofwhat he will need to do to be listed for liver transplant. His care plan and my recommendations arelisted below. He has no psychosocial barriers at this time Recommendations: He has clear instructions of what he will need in terms of support and transportation post transplant. He is aware of the plan, and he is agreeable with the plan. SW will follow as needed in the transplant clinic. He has my contact name and phone number for additional needs. Note routed to nurse coordinator, Aleta Worthington. SW to follow. RADHA Kline, ABRASIVE SAWYER [phone] documented in this encounter Plan of Treatment Upcoming Encounters Date Type Department Care Team (Late st Contact Info) Description 07/15/2024 9:00 AM EST Hospital Encounter [facility] Interventional Radiology [address] [place] [phone] Herve Carrillo MD [address] [facility] [address] [facility] [place] [phone] documented as of this encounter Visit Diagnoses Not on filedocumented in this encounter Additional Health Concerns Assessment Noted Time PHQ-9 Depression Total Score: 0 08/21/19 18 11:00 AM EST documented as of this encounter Care Teams Web Search Evaluator Relationship Specialty Start Date End Date Edgar Four[place] [address] PCP - General 08/18/17 06/23/21 documented as of this encounter
--- OUTSIDE RECORDS SUMMARY | 2024-07-12 13:02 | XMS_ITS | Encounter Summary ---
Author Organization [facility] Address [address] [place] [address] Care Team Providers Care Financial Service Rep Name Role Phone Edgar Fournier MD Primary Care Provider [phone] Source Comments This information has been disclosed [...] release of HIV test results or diagnoses. [id number] Health Encounter Details Date Type Department Care Team (Late st Contact Info) Description 08/18/2017 Abstract [facility] Liver Transplant at Outpatient [facility] [address] [place] [address] Aleta Worthington, RN Social History Tobacco Use [...] Encounter [facility] Interventional Radiology [address] [facility] [place] [address] Herve Carrillo MD [address] [place] [address] documented as of this encounter Procedures Procedure Name Priority Date/Time Associated Diagnosis Comments HEPATIC FUNCTION PANEL Routine 05/31/2017 VITAMIN D 25 HYDROXY Routine 05/31/2017 PROTIME-INR Routine 05/31/2017 CBC AND DIFFERENTIAL Routine 05/31/2017 RENAL FUNCTION PANEL W/O EGFR Routine 05/31/2017 ABO/RH Routine 04/28/2016 documented in this encounter Results * (ABNORMAL) Renal Function Panel w/o EGFR (05/31/2017) BUN/Creatinine Ratio 13 Glucose 131 mg/dL BUN 18 4 - 21 mg/dL CO2 23(A) 13 - 22 mmol/L Creatinine 1.39(A) 0.6 - 1.3 mg/dL Potassium 4.1 3.4 - 5.3 mmol/L Sodium 140 137 - 147 mmol/L Chloride 104 99 - 108 mmol/L Albumin 2.5 Calcium 9.9 8.7 - 10.7 mg/dL EGFR 56 mg/dL Blood specimen (specimen) Historical Provider LAB BLOOD ORDERABLES Yoselin l Result * Vitamin D 25 hydroxy (05/31/2017) Pathologist [facility] Vit D, 25-Hydroxy 43 Serum specimen (specimen) Historical Provider LAB BLOOD ORDERABLES Yoselin l Result * (ABNORMAL) Protime-INR (05/31/2017) Pathologist [facility] INR 1.4(A) 0.9 - 1.1 Protime 17.7 Plasma specimen (specimen) Result [facility] Provider LAB BLOOD ORDERABLES Yoselin l Result * (ABNORMAL) CBC and differential (05/31/2017) Pathologist [facility] Hemoglobin 10.3(A) 13.5 - 17.5 g/dL Hematocrit 28.7(A) 41 - 53 % RDW 14.7(A) 11.5 - 14.5 % MCH 35.8(A) 26.0 - 34.0 pg MCHC 35.9 30 - 37 g/dL MCV 100 82.0 - 108.0 fL Platelets 114 K/??L RBC 2.88(A) 4.50 - 5.90 10^6/??L WBC 4.1 10^3/mL Blood specimen (specimen) Result [facility] Historical Provider LAB BLOOD ORDERABLES Yoselin l Result * (ABNORMAL) Hepatic Function Panel (05/31/2017) Pathologist [facility] Alkaline Phosphatase 136 U/L ALT 23 U/L AST 53 U/L Total Bilirubin 5.2(A) 0.1 - 1.4 mg/dL Total Protein 6.2(A) 6.4 - 8.2 g/dL Plasma specimen (specimen) Result [facility] Provider LAB BLOOD ORDERABLES Yoselin l Result * ABO/Rh (04/28/2016) Pathologist [facility] Rh Type Negative ABO Grouping O Blood specimen (specimen) Result [facility] Provider BLOOD BANK TEST ORDERABLE S Final Result documented in this encounter Visit Diagnoses Not on filedocumented in this encounter Care Teams Financial Service Rep Relationship Specialty Start Date End Date [place] [address] PCP - General 08/18/17 06/23/21 documented as of this encounter
--- OUTSIDE RECORDS SUMMARY | 2024-07-12 13:02 | XMS_ITS | Encounter Summary ---
Author Organization [facility] Address [address] [place] [address] Care Team Providers Care Mounted Police Officer Name Role Phone Edgar Fournier MD Primary Care Provider [phone] Source Comments This information has been disclosed [...] release of HIV test results or diagnoses. [id number] Health Encounter Details Date Type Department Care Team (Late Contact Info) Description 08/24/2017 Orders Only [facility] Liver Transplant at Outpatient [address] [address] Eleanor Casey PA Liver cirrhosis secondary to [...] Hospital Encounter [facility] Interventional Radiology [address] [place] [address] Herve Carrillo MD [address] [place] [address] documented as of this encounter Results * (ABNORMAL) Protime-INR (08/31/2017 11:46 AM EST) Protime 19.2(H) 11.8 - 14.8 seconds 08/31/2017 12:50 PM EST [facility] Comment:Effective 07/12/2017 , the PT and PTMIX reference range has changed from 11.6 -14.4 sec to 11.8-14.8 sec. INR 1.6(H) 0.9 - 1.1 08/31/2017 12:50 PM EST [facility] Comment: RECOMMENDED THERAPEUTIC RANGES USING INR : ?Stable oral anticoagulant therapy: ? 2.0 - 3.0 ?Mechanical prosthetic heart valve: ? 2.5 - 3.5 ?Recurrent acute myocardial infarction: ? 2.5 - 3.5 Plasma specimen (specimen) 08/31/2017 11:46 AM EST 08/31/2017 12:17 PM EST Narrative [facility]ALTH LAB - 08/31/2017 12:50 PM EST Container type->Blue top Eleanor TOTH LAB BLOOD ORDERABLES Final Result [facility] [address] * (ABNORMAL) Hepatic Function Panel (08/31/2017 11:46 AM EST) Total Bilirubin 7.7(H) 0.0 - 1.5 mg/dL 08/31/2017 12:47 PM EST [facility] Bilirubin, Direct 2.33(H) 0.00 - 0.40 mg/dL 08/31/2017 12:47 PM EST [facility] AST 53(H) 13 - 39 U/L 08/31/2017 12:47 PM EST [facility] ALT 25 7 - 52 U/L 08/31/2017 12:47 PM EST [facility] Alkaline Phosphatase 153(H) 36 - 125 U/L 08/31/2017 12:47 PM EST [facility] Total Protein 6.0(L) 6.4 - 8.9 g/dL 08/31/2017 12:47 PM EST [facility] Albumin 3.2(L) 3.5 - 5.7 g/dL 08/31/2017 12:47 PM EST [facility] Bilirubin, Indirect 5.37(H) 0.00 - 1.10 mg/dL 08/31/2017 12:47 PM EST [facility] Plasma specimen (specimen) 08/31/2017 11:46 AM EST 08/31/2017 12:17 PM EST Eleanor TOTH LAB BLOOD ORDERABLES Final Result [facility] [address] * (ABNORMAL) Renal Function Panel w/EGFR (08/31/2017 11:46 AM EST) Sodium 144 133 - 146 mmol/L 08/31/2017 12:47 PM EST [facility] Potassium 4.3 3.5 - 5.3 mmol/L 08/31/2017 12:47 PM EST [facility] Chloride 107 98 - 110 mmol/L 08/31/2017 12:47 PM EST [facility] CO2 26 21 - 33 mmol/L 08/31/2017 12:47 PM EST [facility] Anion Gap 11 3 - 16 mmol/L 08/31/2017 12:47 PM EST [facility] BUN 23 7 - 25 mg/dL 08/31/2017 12:47 PM EST [facility] Creatinine 1.59(H) 0.60 - 1.30 mg/dL 08/31/2017 12:47 PM EST [facility] Glucose 198(H) 70 - 100 mg/dL 08/31/2017 12:47 PM EST [facility] Calcium 10.5(H) 8.6 - 10.3 mg/dL 08/31/2017 12:47 PM EST [facility] Phosphorus 4.6 2.1 - 4.7 mg/dL 08/31/2017 12:47 PM [facility] Albumin 3.2(L) 3.5 - 5.7 g/dL 08/31/2017 12:47 PM EST [facility] Osmolality, Calculated 307(H) 278 - 305 mOsm/kg 08/31/2017 12:47 PM EST [facility] eGFR AA CKD-EPI 61 See note. 8 12:47 PM EST [facility] eGFR NONAA CKD-EPI 52 See note. 08/31/2017 12:47 PM [facility] Plasma specimen (specimen) 08/31/2017 11:46 AM EST 08/31/2017 12:17 PM EST Narrative [facility] - 08/31/2017 12:47 PM EST As of 10/13/2015 the estimated [...] equation to estimate glomerular filtration rate. ??Jennifer Business Resiliency Manager Med. 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
--- OUTSIDE RECORDS SUMMARY | 2024-07-12 13:02 | XMS_ITS | Encounter Summary ---
Author Organization [facility] Address [facility] [place] [address] Care Team Providers Care Bog Cutter Name Role Phone Edgar Fournier MD Primary Care Provider [phone] Source Comments This information has been disclosed [...] release of HIV test results or diagnoses. [id number] Encounter Details Date Type Department Care Team (Late st Contact Info) Description 08/21/[address] [facility] Kidney Transplant at Outpatient [address] [address] Ashish Flood Social History Tobacco Use Types Packs/Day Years Used Date Smoking Tobacco: Never Smokeless Tobacco: Never Sex and Gender Information Value Date Recorded Sex Assigned at Not on file Legal Sex Male 11:05 AM EDT Gender Identity Not on file Sexual Orientation Not on file documented as of this encounter Progress Notes * Ashish Flood - 08/21/2017 2:08 PM EST Ashish Flood Patient Screening Organ:liver Verified patient demos:yes Patient / Minor Children in the home:no Patient disabled Income:750 ssi Primary Ins: nick Terry mdcd Insured: patient COBRA /no Secondary Ins: n/a Insured: COBRA no [facility] paying premiums:no Travel/Lodging /no: Medicare due to:no mdcare No Medicare not worked enough quarters/not on dialysis: Medicaid spenddown no: Patient is/ [place] Citizen: Patient is not [place]: Discussed Medication list/coverage:yes Patient will need to get medications from [facility] Post Transplant /no: Recipient needs to be cleared prior to donor being evaluated /no: Evaluation for patient/donors needs to be done at [facility] /no: Obtained signature on Benefits Sheet and Financial Consent yes Additional Comments:SCA SIGNED documented in this encounter Plan of Treatment Upcoming Encounters Date Type Department Care Team (Late st Contact Info) Description 07/15/2024 9:00 AM EST Hospital Encounter [facility] Interventional Radiology [address] [place] [phone] Herve Carrillo MD [address] [facility] [address] [place] [address] documented as of this encounter Visit Diagnoses Not on filedocumented in this encounter Additional Health Concerns Assessment Noted Time PHQ-9 Depression Total Score: 0 08/21/19 18 11:00 AM EST documented as of this encounter Care Teams Bog Cutter Relationship Specialty Start Date End Date [place] [address] PCP - General 08/18/17 06/23/21 documented as of this encounter
--- OUTSIDE RECORDS SUMMARY | 2024-07-12 13:02 | XMS_ITS | Encounter Summary ---
Author Organization [facility] Address [facility] [place] [address] Care Team Providers Care Customer Solutions Architect Name Role Phone Edgar Fournier MD Primary Care Provider [phone] Source Comments This information has been disclosed [...] release of HIV test results or diagnoses. [id number] Encounter Details Date Type Department Care Team (Late st Contact Info) Description 09/04/2017 Orders Only [facility] Liver Transplant at Outpatient [address] [address] Lynnette Muhammad MA Pre-transplant evaluation for chronic liver disease (Primary Dx); Hepatic encephalopathy (CMS Dx) Social History Tobacco Use Types [...] Description 07/15/2024 9:00 AM EST Hospital Encounter [facility] Interventional Radiology [address] [place] [address] Herve Carrillo MD [address] [facility] [address] [place] [phone] documented as of this encounter Visit Diagnoses Diagnosis Pre-transplant evaluation for chronic liver disease- Primary Hepatic encephalopathy (CMS-HCC) Hepatic encephalopathy documented in this encounter Additional Health Concerns Assessment Noted Time PHQ-9 Depression Total Score: 0 08/21/19 18 11:00 AM EST documented as of this encounter Care Teams Customer Solutions Architect Relationship Specialty Start Date End Date Edgar Fournier MD [address] [place] [address] PCP - General 08/18/17 06/23/21 documented as of this encounter
--- OUTSIDE RECORDS SUMMARY | 2024-07-12 13:02 | XMS_ITS | Encounter Summary ---
Author Organization [facility] Address Formerly named [facility] [place] [address] Care Team Providers Care Scheduling Clerk Name Role Phone Edgar Fournier MD Primary Care Provider [phone] Source Comments This information has been disclosed [...] release of HIV test results or diagnoses. 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) Social History Tobacco Use Types Packs/Day [...] Hospital Encounter [facility] Interventional Radiology [address] [place] [address] Herve Carrillo MD [address] [facility] [address] [facility] [place] [address] documented as of this encounter Procedures Procedure Name Priority Date/Time Associated Diagnosis Comments HEPATIC FUNCTION PANEL Routine 08/31/2017 11:46 AM EST Liver cirrhosis secondary to SLA (CMS-HCC) Pre-transplant evaluation for chronic liver disease RENAL FUNCTION PANEL W/EGFR Routine 08/31/2017 11:46 AM EST 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 INR 1.6(H) 0.9 - 1.1 08/31/2017 12:50 PM EST [facility] Comment: RECOMMENDED THERAPEUTIC RANGES USING INR : ?Stable oral anticoagulant therapy: ? 2.0 - 3.0 ?Mechanical prosthetic heart valve: ? 2.5 - 3.5 ?Recurrent acute myocardial infarction: ? 2.5 - 3.5 Plasma specimen (specimen) 08/31/2017 11:46 AM EST 08/31/2017 12:17 PM EST Narrative [facility] - 08/31/2017 12:50 PM EST Container type->Blue top Eleanor Casey [place] LAB BLOOD ORDERABLES Final Result Performing Organization Address City/State/[facility] Co de Phone Number [facility] [address] * (ABNORMAL) Hepatic Function Panel (08/31/2017 11:46 AM EST) Total Bilirubin 7.7(H) 0.0 - 1.5 mg/dL 08/31/2017 12:47 PM EST [facility] Bilirubin, Direct 2.33(H) 0.00 - 0.40 mg/dL 08/31/2017 12:47 PM EST [facility] AST 53(H) 13 - 39 U/L 08/31/2017 12:47 PM EST [facility] ALT 25 7 - 52 U/L 08/31/2017 12:47 PM EST [facility] Alkaline Phosphatase 153(H) 36 - 125 U/L 08/31/2017 12:47 PM EST [facility] Total Protein 6.0(L) 6.4 - 8.9 g/dL 08/31/2017 12:47 PM EST [facility] Albumin 3.2(L) 3.5 - 5.7 g/dL 08/31/2017 12:47 PM EST [facility] Bilirubin, Indirect 5.37(H) 0.00 - 1.10 mg/dL 08/31/2017 12:47 PM EST [facility] Plasma specimen (specimen) 08/31/2017 11:46 AM EST 08/31/2017 12:17 PM EST Eleanor TOTH LAB BLOOD ORDERABLES Final Result [facility] [address] [id number], [facility] * (ABNORMAL) Renal Function Panel w/EGFR (08/31/2017 11:46 AM EST) Sodium 144 133 - 146 mmol/L 08/31/2017 12:47 PM [facility] Potassium 4.3 3.5 - 5.3 mmol/L 08/31/2017 12:47 PM [facility] Chloride 107 98 - 110 mmol/L 08/31/2017 12:47 PM [facility] CO2 26 21 - 33 mmol/L 08/31/2017 12:47 PM [facility] Anion Gap 11 3 - 16 mmol/L 08/31/2017 12:47 PM [facility] BUN 23 7 - 25 mg/dL 08/31/2017 12:47 PM [facility] Creatinine 1.59(H) 0.60 - 1.30 mg/dL 08/31/2017 12:47 PM [facility] Glucose 198(H) 70 - 100 mg/dL 08/31/2017 12:47 PM [facility] Calcium 10.5(H) 8.6 - 10.3 mg/dL 08/31/2017 12:47 PM [facility] Phosphorus 4.6 2.1 - 4.7 mg/dL 08/31/2017 12:47 PM [facility] Albumin 3.2(L) 3.5 - 5.7 g/dL 08/31/2017 12:47 PM [facility] Osmolality, Calculated 307(H) 278 - 305 mOsm/kg 08/31/2017 12:47 PM [facility] eGFR AA CKD-EPI 61 See note. 8 12:47 PM [facility] eGFR NONAA CKD-EPI 52 See note. 08/31/2017 12:47 PM EST [facility] Plasma specimen (specimen) 08/31/2017 11:46 AM EST 08/31/2017 12:17 PM EST Narrative [facility] - 08/31/2017 12:47 PM EST [...] equation to estimate glomerular filtration rate. ??Jennifer Marketing Operations Specialist Med. 2009:150(9):604-12 Eleanor TOTH LAB BLOOD ORDERABLES Final Result Performing Organization Address City/[facility] Co de Phone Number [facility] [address] [facility]. [address] * Ethyl Glucuronide/Ethyl Sulfate, Scrn w/Conf (08/31/2017 11:46 AM EST) Ethyl Glucuronide Screen, Urine Negative Cutoff=50 0 ng/mL 09/02/2017 5:17 PM EST [facility] Comment: This test was developed and its performance characteristics determined by [facility]. It has not been cleared or approved by the Food and Drug Administration. Urine specimen (specimen) 08/31/2017 11:46 AM EST 09/02/2017 6:05 PM EST Narrative [facility] - 09/02/2017 6:05 PM EST PERFORMED AT: [facility] [address] [place], [place] [id number] RN FACULTY: Jack Reagan MD ?? PHONE: [phone] us America Vazquez MD URINE ORDERABLES Final Result Performing Organization Address City/[facility]/ZIP Co de Phone Number [facility] [address] [facility]. 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
--- OUTSIDE RECORDS SUMMARY | 2024-07-12 13:02 | XMS_ITS ---
Author Name Man Sky Address [address] [place] [address] Phone [phone] Organization [facility], NA DOCUMENT DISCLAIMER Multiple document versions may exist, please be sure you review the latest version. The information in the [facility] Progress Note Document represents a providers documented clinical note containing certain health and medical information. It may not contain the complete medical history for the patient and should be independently verified. The represented time in the document is Eastern Time PROVIDER ROUNDING NOTE HHD PROVIDER?ROUNDING?NOTE?D Clinic:?[facility]?PRO[facility] Visit?date:?11/28/2022?00:00?Modality/setting:?HHD Aiden?Eh?-?Chart?#:?[id number] Method?of?Interaction:?Face?to?face Date?of?Interaction:?03/12/2024 ?-?Patient?is?stable ?-?Medications?and?labs?reviewed. 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 Vitals ?Most?recent?vitals:?Date:?03/12/2024?Collected?Date:?Temperature:?Temperature:?&#1 60;?Pulse:?Pulse:?& #160;?Respirations:?Respirations:?& #160;?BP?(Sitting):?194/115?BP?(Sitting):?BP?(Standing):?BP?(Standing):?& #160;?Weight?(kg):?Weight?(kg):?134.9?Height?date:?11/28/2022??& #160;?&# 160;?Height?(cm):?175???&# 160;?&# 160;?? he?has?not?taken?bp?meds?today HHD?Prescription More?Frequent?Dialysis?-?Based?on?provider's?assessment?of&# 160;patient?condition: ?-?Continue?with?greater?than?3x?more?frequent?dialysis?prescription Note?clinical?response?to?more?frequent?dialysis?or?any&#160 ;changes?to?patient's?condition?that?are?relevant: ?for?volume?control ??01/18/2024?Home?HD?using?NxStage?with?PureFlow?4X&#16 0;Week,?Charlesri,?Estimated Treatment?Time:?3?hrs?0?min,?CAR?172,?Therapy?Fluid&#16 0;1.0?K?40?Lactate,?Volume?per Tx?50?(liters),?Max?FF:?100?%,?BFR:?450,?DFR:?17 L/hr,?Ordered?Max?UFR:?1 mL/Kg/hr,?EDW?133?(kg),?Access:?AVFistula-Standard,?Clinic?8589- Home?Machine?HHD?NxStage?System?One?S ?11/14/2019 Order?Diagnosis ICD10?Code?Diagnosis?Description ? 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 Urea?Clearance,?Urine?wstdKt/V?0.73?03/04/2024?-?2.1?03/04/24?0.47?02/26/2024?-?1.3?02/26/24?0.77?02/04/2024?-?2.5?02/04/24?? ?-?Adequacy?parameters?reviewed Adequacy ?-?Adequacy?target?met good Anemia ?HGB?g/dL? Transferrin?Sat.?(Calc)?%?Ferritin?ng/mL&#160 ;?11.5?02/26/24?22?02/26/24?224 ?02/26/24?? ?13.3?02/04/24?40?02/04/24?314 ?02/04/24?? ?12.7?12/29/23?20?01/16/24?242 ?01/16/24?? ?-?Anemia?targets?met good Bone?and?Mineral?Metabolism ??Calcium,?Total?mg/dL?? Calcium,?Corrected?mg/dL ?&#1 60;??Phosphorous?mg/dL??? PTH-Intact,?Plasma?pg/mL ??9.0?02/26/24? 8.8?02/26/24?7.2&#16 0;?02/26/24?1746?02/26/24?9.3?02/04/24? 9.1?02/04/24?9.0&#16 0;?02/04/24?942?02/04/24?9.5?01/16/24? 9.1?01/16/24?7.5&#16 0;?01/16/24?1398?01/08/24?Vitamin?D?25?Hydroxy?ng/mL?Calcimimetics?78.8?08/28/23?-?97.2?11/28/22?-?53.8?03/20/20?-? Calcium:? Phosphorus:??Above?target PTH:?Above?target po4?7.2?good?for?teri,?he?was?only?taking?60mg?cinacalcet,?now?taking?120.??will repeat?pth?level?he?may?need?180mg. Nutrition ?Albumin?g/dL? eNPCR?g/kg/day?Bicarbonate?mEq/L??? Potassium,?Serum?mEq/L ?4.3?02/26/24?-?16?02/26/24?? ?4.8& #160;?03/06/24?? ?4.2?02/04/24?-?18?02/04/24?? ?7.0& #160;?03/04/24?? ?4.5?01/16/24?-?16?01/16/24?? ?5.7& #160;?03/01/24?? ?-?Nutrition?reviewed he?is?now?taking?nahco3?and?lokelma?bid. Home?Medications Home?Medication?Reviewed:?Kati?Carlito?03/12/2024?10:19:03?EDT ?Home?Medications?(updated:?01/23/2024?16:15:22) Patient:?Eh, Aiden ??Shilpi?Low?Dose?Aspirin?(aspirin) 81?mg,?oral,?1?tablet?once?a?day ??carbamazepine?(carbamazepine) 200?mg,?oral,?1?tablet?every?night ??carvedilol?(carvedilol) 25?mg,?oral,?2?tablet?twice?a?day ??CellCept?(mycophenolate?mofetil) 250?mg,?oral,?1?capsule?twice?a?day ??cholecalciferol?(vitamin?D3)?(cholecalciferol?(vitamin?d3)) 625?mcg?(25,000?unit),?oral,?2?capsule?three?times?a week [Yusyhar-Ygwxdoyz-Eqzuossc] ??cinacalcet?(cinacalcet) 60?mg,?oral,?2?tablet?once?a?day [take?with?the?evening?meal] ??clonazepam?(clonazepam) 0.5?mg,?oral,?1?tablet?once?a?day ??cyclosporine?(cyclosporine) 25?mg,?oral,?4?capsule?every?morning ??cyclosporine?(cyclosporine) 25?mg,?oral,?5?capsule?every?night?at?bedtime ??doxazosin?(doxazosin) 8?mg,?oral,?1?tablet?every?night ??entecavir?(entecavir) 0.5?mg,?oral,?1?tablet?once?a?week [Takes?on?Monday] ??ergocalciferol?(vitamin?D2)?(ergocalciferol?(vitamin?d2)) 1,250?mcg?(50,000?unit),?oral,?1?capsule?as?directed [Monday,?Monday,?Monday] ??folic?acid?(folic?acid) 1?mg,?oral,?1?tablet?once?a?day ??gabapentin?(gabapentin) 300?mg,?oral,?1?capsule?once?a?day ??lactulose?(lactulose) 10?gram/15?mL,?oral,?30?ml?once?a?day [for?constipation]... There?are?additional?active?home?medications?for?this?patien t.?Please?view?in?Clinical?Summary Access?and?Evaluation Active/Maturing?Accesses ?Type?Position/Location?Status?Access?ID?CVCatheter-Tunneled?Chest?Active?(In?Use)?[id number]?-?-?&# 160;?-? -?-?-?&# 160;?-? -? avf?ligated,?he?wants?to?wait?and?see?if?he?can&#1 60;get?laparoscopic?transplant?at [facility] Infection Most?Recent?In-center?Antibiotic?Order 05/15/2020?Vancomycin?HCl?750?mg?IV?Every?Treatment?x?1 2?Times,?Clinic?[facility]-?Entered?By?ACSmith Exam ?-?Vital?signs?reviewed Pulmonary ?-?LUNGS?-?clear Cardiovascular ?-?CV?-?Blood?pressure?noted Edema ?-?EXT?-?No?edema Transplant?Status Topic Exploring?Alternative?Treatment?Options: Kidney?Transplant ?Person?Taught: ?-?Patient ?Additional?Education?Required:?No ?Date?Given:?11/14/2019 Interest?and?Eligibility?(If?changes?are?made,?Please?notify?SW?via?alert?below) ?Date?of?discussion?from?transplant?assessment:?01/22/2024 ?Patient?already?on?transplant?list??No ?Patient?interested?in?transplantation??Yes ?Has?patient's?physician?identified?one?or?more?exclusions per?the ?Contraindication?list?provided?by?the?transplant?center? ??No ?Patient?referred?for?transplantation??Yes,?per?physician?order ?Transplant?[place]:[facility] ?Provider?Transplant?Comment: ??transplant?on?hold?for?bmi,?he?is?looking?into&# 160;laparoscopic?transplant?at?[facility] Tobacco?Cessation ??Tobacco?use:?Never?used Man?Jose Daniel,? END OF DOCUMENT
--- OUTSIDE RECORDS SUMMARY | 2024-07-12 13:02 | XMS_ITS | Encounter Summary ---
Author Organization [facility] Address [facility] [place] [address] Care Team Providers Care Political Reporter Name Role Phone Unavailable Primary Care Provider [...] release of HIV test results or diagnoses. [id number] Encounter Details Date Type Department Care Team (Late st Contact Info) Description 06/21/2017 Telephone [facility] Liver Transplant at [address] [address] Lynnette Muhammad MA Social History Tobacco Use Types Packs/Day Years Used Date Smoking Tobacco: Never Assessed Sex and Gender Information Value Date Recorded Sex Assigned at Not on file Legal Sex Male 11:05 AM EDT Gender Identity Not on file Sexual Orientation Not on file documented as of this encounter Miscellaneous Notes * Telephone Encounter - Lynnette Muhammad MA - 06/21/2017 1:36 PM EST Pt called and wanted to be re referred, and stated that his financial stuff is all figured out thistime. Please give this patient a call back. Thanks documented in this encounter Plan of Treatment Upcoming Encounters Date Type Department Care Team (Late st Contact Info) Description 07/15/2024 9:00 AM EST Hospital Encounter [facility] Interventional Radiology [address] [place] [phone] Herve Carrillo MD [address] [facility] [address] [place] [phone] documented as of this encounter Visit Diagnoses Not on filedocumented in this encounter
--- OUTSIDE RECORDS SUMMARY | 2024-07-12 13:02 | XMS_ITS ---
Author Organization [facility] Address [address] [place] [address] Care Team Providers Care Soaking Pits Supervisor Name Role Phone Maile Valles RN Unavailable Unavail able Jack Ordoñez MD Unavailable [phone] Estephania Sharif PharmD Unavailable Christine miguelilaEdgar Azar MD Primary Care Provider [phone] Transplant Episode Kidney Candidate [facility] ([place], [place]) - [facility] Evaluation began on 07/13/2021 Marked as Ineligible on 09/27/2021 Reason: Medical/Surgical Contraindication(s) Kidney CoordinatorAna Santoyo RN Phone: N/A Fax: N/A Email: N/A Scores Score Value Updated Exceptions/Reas ons CPRA Not available EPTS (Calc) 76 07/12/2024 [place] Organ Diagnosis Organ Primary Contributory Kidney Other, Specify - Transplant Comp lications Care Team Name Role Phone Fax Email Ana Santoyo RN Kidney Coordinator N/A N/A N/A Enrique Millan MD Referring Physician N/A N/A N/A Events Pre-Transplant Referred: 05/28/2021 Evaluation began: 07/13/2021 Committee: 09/27/2021 Dialysis History Dialysis History Start End Type [facility] 11/28/2022 Home Hemodialysis [phone] [facility] 09/26/2019 11/25/2022 Hemo [facility] Dialysis Center Information Center Phone Fax Address [facility] [phone] [address] [id number] [facility] [phone] [place], [place] [id number]
--- OUTSIDE RECORDS SUMMARY | 2024-07-12 13:02 | XMS_ITS ---
Author Name Man Sky Address [address] [place] [address] Phone [phone] Organization [facility], NA DOCUMENT DISCLAIMER Multiple document versions may exist, please be sure you review the latest version. The information in the [facility] Progress Note Document represents a providers documented clinical note containing certain health and medical information. It may not contain the complete medical history for the patient and should be independently verified. The represented time in the document is Eastern Time PROVIDER ROUNDING NOTE HHD PROVIDER?ROUNDING?NOTE?D Clinic:?[facility]?HOME?PROGRAM Visit?date:?11/28/2022?00:00?Modality/setting:?HHD Aiden?Eh?-?Chart?#:?[id number] Method?of?Interaction:?Face?to?face Date?of?Interaction:?04/11/2024 ?-?Patient?is?stable ?-?Medications?and?labs?reviewed. 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 Vitals ?Most?recent?vitals:?Date:?04/11/2024?Collected?Date:?Temperature:?Temperature:?&#1 60;?Pulse:?Pulse:?& #160;?Respirations:?Respirations:?& #160;?BP?(Sitting):?140/90?BP?(Sitting):?&#1 60;?BP?(Standing):?BP?(Standing):?& #160;?Weight?(kg):?Weight?(kg):?133.2?Height?date:?11/28/2022??& #160;?&# 160;?Height?(cm):?175???&# 160;?&# 160;?? doing?better HHD?Prescription More?Frequent?Dialysis?-?Based?on?provider's?assessment?of&# 160;patient?condition: ?-?Continue?with?greater?than?3x?more?frequent?dialysis?prescription Note?clinical?response?to?more?frequent?dialysis?or?any&#160 ;changes?to?patient's?condition?that?are?relevant: ?for?volume?control ??01/18/2024?Home?HD?using?NxStage?with?PureFlow?4X&#16 0;Week,?Jackelyn,?Estimated Treatment?Time:?3?hrs?0?min,?CAR?172,?Therapy?Fluid&#16 0;1.0?K?40?Lactate,?Volume?per Tx?50?(liters),?Max?FF:?100?%,?BFR:?450,?DFR:?17 L/hr,?Ordered?Max?UFR:?1 mL/Kg/hr,?EDW?133?(kg),?Access:?AVFistula-Standard,?Clinic?79- Home?Machine?HHD?NxStage?System?One?S ?11/14/2019 Order?Diagnosis ICD10?Code?Diagnosis?Description ? 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 Urea?Clearance,?Urine?wstdKt/V?0.67?03/19/2024?-?2.2?03/19/24?0.73?03/04/2024?-?2.1?03/04/24?0.47?02/26/2024?-?1.3?02/26/24?? ?-?Adequacy?parameters?reviewed Adequacy ?-?Adequacy?target?met good Anemia ?HGB?g/dL? Transferrin?Sat.?(Calc)?%?Ferritin?ng/mL&#160 ;?11.6?03/19/24?12?03/19/24?298 ?03/19/24?? ?11.5?02/26/24?22?02/26/24?224 ?02/26/24?? ?13.3?02/04/24?40?02/04/24?314 ?02/04/24?? ?-?Anemia?reviewed tsat?is?low?will?give?iv?fe Bone?and?Mineral?Metabolism ??Calcium,?Total?mg/dL?? Calcium,?Corrected?mg/dL ?&#1 60;??Phosphorous?mg/dL??? PTH-Intact,?Plasma?pg/mL ??8.6?03/19/24? 8.4?03/19/24?6.7&#16 0;?03/19/24?460?03/19/24?9.0?02/26/24? 8.8?02/26/24?7.2&#16 0;?02/26/24?1746?02/26/24?9.3?02/04/24? 9.1?02/04/24?9.0&#16 0;?02/04/24?942?02/04/24?Vitamin?D?25?Hydroxy?ng/mL?Calcimimetics?78.8?08/28/23?-?97.2?11/28/22?-?53.8?03/20/20?-? Calcium:? Phosphorus:??Above?target PTH:?At?target po4?6.7?good?for?him,?pth?improved?on?increased?sensipar Nutrition ?Albumin?g/dL? eNPCR?g/kg/day?Bicarbonate?mEq/L??? Potassium,?Serum?mEq/L ?4.3?03/19/24?-?19?03/19/24?? ?5.6& #160;?03/19/24?? ?4.3?02/26/24?-?16?02/26/24?? ?4.8& #160;?03/06/24?? ?4.2?02/04/24?-?18?02/04/24?? ?7.0& #160;?03/04/24?? ?-?Nutrition?reviewed ?-?Potassium?controlled he?is?now?taking?nahco3?and?lokelma?bid. Home?Medications Home?Medication?Reviewed:?Kati?Carlito?04/11/2024?13:32:18?EDT ?Home?Medications?(updated:?04/11/2024?13:42:07) Patient:?Eh, Aiden ??Shilpi?Low?Dose?Aspirin?(aspirin) 81?mg,?oral,?1?tablet?once?a?day ??carbamazepine?(carbamazepine) 200?mg,?oral,?1?tablet?every?night ??carvedilol?(carvedilol) 25?mg,?oral,?2?tablet?twice?a?day ??CellCept?(mycophenolate?mofetil) 250?mg,?oral,?1?capsule?twice?a?day ??cholecalciferol?(vitamin?D3)?(cholecalciferol?(vitamin?d3)) 625?mcg?(25,000?unit),?oral,?2?capsule?three?times?a week [Rububnl-Bwnxirmb-Cdiuexcc] ??cinacalcet?(cinacalcet) 60?mg,?oral,?2?tablet?once?a?day [take?with?the?evening?meal] ??clonazepam?(clonazepam) 0.5?mg,?oral,?1?tablet?once?a?day ??cyclosporine?(cyclosporine) 25?mg,?oral,?4?capsule?every?morning ??cyclosporine?(cyclosporine) 25?mg,?oral,?5?capsule?every?night?at?bedtime ??doxazosin?(doxazosin) 8?mg,?oral,?1?tablet?every?night ??entecavir?(entecavir) 0.5?mg,?oral,?1?tablet?once?a?week [Takes?on?Monday] ??ergocalciferol?(vitamin?D2)?(ergocalciferol?(vitamin?d2)) 1,250?mcg?(50,000?unit),?oral,?1?capsule?as?directed [Monday,?Monday,?Monday] ??folic?acid?(folic?acid) 1?mg,?oral,?1?tablet?once?a?day ??gabapentin?(gabapentin) 300?mg,?oral,?1?capsule?once?a?day ??lactulose?(lactulose) 10?gram/15?mL,?oral,?30?ml?once?a?day [for?constipation]... There?are?additional?active?home?medications?for?this?patien t.?Please?view?in?Clinical?Summary Access?and?Evaluation Active/Maturing?Accesses ?Type?Position/Location?Status?Access?ID?CVCatheter-Tunneled?Chest?Active?(In?Use)?[id number]?-?-?&# 160;?-? -?-?-?&# 160;?-? -? avf?ligated,?he?has?agreed?to?proceed?with?surgical?eval Infection Most?Recent?In-center?Antibiotic?Order 05/15/2020?Vancomycin?HCl?750?mg?IV?Every?Treatment?x?1 2?Times,?Clinic?71-?Entered?By?ACSmith Exam ?-?Vital?signs?reviewed Edema ?-?EXT?-?No?edema per?pt?exam Transplant?Status Topic Exploring?Alternative?Treatment?Options: Kidney?Transplant ?Person?Taught: ?-?Patient ?Additional?Education?Required:?No ?Date?Given:?11/14/2019 Interest?and?Eligibility?(If?changes?are?made,?Please?notify?SW?via?alert?below) ?Date?of?discussion?from?transplant?assessment:?01/22/2024 ?Patient?already?on?transplant?list??No ?Patient?interested?in?transplantation??Yes ?Has?patient's?physician?identified?one?or?more?exclusions per?the ?Contraindication?list?provided?by?the?transplant?center? ??No ?Patient?referred?for?transplantation??Yes,?per?physician?order ?Trans[place] ?Provider?Transplant?Comment: ??proceeding?with?laparoscopic?transplant?at?[place]?carlos Tobacco?Cessation ??Tobacco?use:?Never?used Man?Jose Daniel,? END OF DOCUMENT
--- OUTSIDE RECORDS SUMMARY | 2024-07-12 13:02 | XMS_ITS | Encounter Summary ---
Author Organization [facility] Address [facility] [place] [address] Care Team Providers Care Drapery Head Former Name Role Phone Unavailable Primary Care Provider [...] release of HIV test results or diagnoses. [id number] Health Encounter Details Date Type Department Care Team (Late st Contact Info) Description 02/03/2017 Chart Note [facility] Kidney Transplant at Outpatient [address] [address] Ashish Flood [facility] [address] Social History Tobacco Use Types Packs/Day Years Used Date Smoking Tobacco: Never Assessed Sex and Gender Information Value Date Recorded Sex Assigned at Not on file Legal Sex Male 11:05 AM EDT Gender Identity Not on file Sexual Orientation Not on file documented as of this encounter Progress Notes * Ashish Flood - 02/03/2017 1:09 PM EDT Ashish graves [facility] [address] New liver referral Has [facility] from [place] Already listed at This [place] [facility] is not in network with [facility] I called patient and he was aware as he did call [facility] Referral is denied OON documented in this encounter Plan of Treatment Upcoming Encounters Date Type Department Care Team (Late st Contact Info) Description 07/15/2024 9:00 AM EST Hospital Encounter [facility] Interventional Radiology [address] [place] [phone] Herve Carrillo MD [address] [facility] [address] [place] [phone] documented as of this encounter Visit Diagnoses Not on filedocumented in this encounter
--- OUTSIDE RECORDS SUMMARY | 2024-07-12 13:02 | XMS_ITS | Encounter Summary ---
Author Organization [facility] Address [address] [place] [id number] Care Team Providers Care Mixer Whipped Topping Name Role Phone Edgar Fournier MD Primary Care Provider [phone] Source Comments This information has been disclosed [...] release of HIV test results or diagnoses. [id number] Health Encounter Details Date Type Department Care Team (Late st Contact Info) Description 08/24/2017 Chart Note [facility] Liver Transplant at Outpatient [address] [address] Aleta Worthington, RN Social History Tobacco Use [...] Health [facility] Interventional Radiology [address] [place] [phone] Herve Carrillo MD [address] [facility] [address] [place] [phone] documented as of this encounter Visit Diagnoses Not on filedocumented in this encounter Additional Health Concerns Assessment Noted Time PHQ-9 Depression Total Score: 0 08/21/19 18 11:00 AM EST documented as of this encounter Care Teams Mixer Whipped Topping Relationship Specialty Start Date End Date Edgar Fournier MD [address] [place] [address] PCP - General 08/18/17 06/23/21 documented as of this encounter
--- OUTSIDE RECORDS SUMMARY | 2024-07-12 13:02 | XMS_ITS | Encounter Summary ---
Author Organization [facility] Address [address] [place] [address] Care Team Providers Care Maori Liaison Adviser Name Role Phone Edgar Fournier MD Primary Care Provider [phone] Source Comments This information has been disclosed [...] release of HIV test results or diagnoses. [id number] Health Encounter Details Date Type Department Care Team (Late st Contact Info) Description 08/22/2017 Nutrition [facility] Liver Transplant at Outpatient [address] [address] Social History Tobacco Use Types Packs/Day Years Used Date Smoking Tobacco: Never Smokeless Tobacco: Never Sex and Gender Information Value Date Recorded Sex Assigned at Not on file Legal Sex Male 11:05 AM EDT Gender Identity Not on file Sexual Orientation Not on file documented as of this encounter Progress Notes * Madelyn Kwok RD - 08/22/2017 8:22 AM EST Initial Liver Transplant Nutrition Assessment Met with Aiden Stauffer and family as part of the evaluation process for liver transplant. HPI: Per Dr. Diaz. Pt states he is doing well with good appetite and PO intake. As per recall struggles with high protein, low sodium, diabetic diet. Denied any ascites, edema or muscle loss at this time and states blood sugars have been well controlled. Reports walking when he can. Reviewed high protein, low sodium, diabetic diet and the importance of compliance. Encouraged increasing activity as able. Pt verbalized understanding. Past Medical History: Diagnosis Date ??? Acute pancreatitis ??? Ascites ??? Diabetes mellitus (HCC) ??? Esophageal varices with bleeding (HCC) ??? Hepatic encephalopathy (HCC) ??? Hypertension ??? 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 Vitamin D deficiency Current Outpatient Prescriptions on File Prior to Visit Medication Sig Dispense Refill ??? carvedilol (COREG) 25 MG tablet Take 25 mg by mouth 2 times a day with meals. ??? ergocalciferol (ERGOCALCIFEROL) 50,000 unit capsule Take 50,000 Units by mouth once a week. ??? esomeprazole (NEXIUM) 40 MG capsule Take 40 mg by mouth every morning before breakfast. ??? furosemide (LASIX) 40 MG tablet Take 40 mg by mouth daily. ??? gabapentin (NEURONTIN) 600 MG tablet Take 600 mg by mouth 3 times a day. ??? insulin lispro protamine-insulin lispro (HUMALOG MIX 75/25) 100 unit/mL (75- 25) Susp Inject 30 Units subcutaneously 2 times a day before meals. ??? lactulose (CHRONULAC) 10 gram/15 mL solution Take 20 g by mouth 3 times a day. Indications: Hepatic Encephalopathy ??? metFORMIN ER (GLUMETZA) 1000 MG (MOD) [...] mg by mouth 2 times a day. No current facility-administered medications on file prior to visit. Allergies Allergen Reactions ??? Codeine ??? Flexeril [Cyclobenzaprine] Labs: Lab Results Component Value Date HGBA1C 5.5 08/21/2017 Lab Results Component Value Date ALT 19 08/21/2017 AST 57 (H) 08/21/2017 ALKPHOS 126 (H) 08/21/2017 BILITOT 8.8 (H) 08/21/2017 Lab Results Component Value Date ALBUMIN 3.7 08/21/2017 ALBUMIN 3.7 08/21/2017 Lab Results Component Value Date CREATININE 1.41 (H) 08/21/2017 BUN 18 08/21/2017 NA 145 08/21/2017 K 4.0 08/21/2017 Lab Results Component Value Date PHOS 3.1 08/21/2017 Lab Results Component Value Date PQJG17Q 43 05/31/2017 No results found for: FOLATE No results found for: [id number] Anthropometrics: ANTHROPOMETRICS 08/21/2017 08/21/2017 HEIGHT 5' 7 5' 7 WEIGHT 255 lbs 255 lbs BODY MASS INDEX 39.94 39.94 UBW: 275lbs 2 years ago Denied ascites / edema / muscle loss Physician recommended diet: Low Sodium, DM and Protein Past nutrition education: Yes - pt is listed @ Food preparation / grocery shopping: Spouse Meal Replacement Products (liquids, bars, etc): No Dietary Supplements (Fiber tablets or powder, garlic pills, herbs, DHEA, etc): No Vitamins or Minerals: Vit. D Appetite: Good Current Eating Pattern (typical foods eaten) Breakfast: Oatmeal, banana Lunch: Dumplings Dinner: Lo mein Snacks: fruit Beverages: pop Hand line producer strength Dominant hand: Right Injury to dominant hand: None Right (avergae) Left (average) Interpretation 75 61.3 Reduced Physical Activity: Activities of daily living: Yes Current structured exercises: Walking Past exercise: Yes Barriers to exercise: Tired, illness Nutrition Diagnosis Food & Nutrition Related Knowledge Deficit Related to no prior/limited education regarding diet for low sodium/diabetes As evidenced by patient with many questions about diet & self-report of limited prior education Nutritional Intervention: Regular schedule of high protein meals/snacks, General/healthful diet andNutrition education Materials Provided: Low sodium, high protein foods, T2DM Learner Readiness Method Response Patient [] Eager [x] Acceptance [] Non-Acceptance [] Refuses [x] Explanation [] Demonstration [x] Handout [] Tree And Shrub Technician [x] Verbalized Understanding [] Demonstrated Understanding [] Needs Reinforcement [] No Evidence of Learning [] Refused Teaching [] Teach Back Learner Readiness Method Response Family [] Eager [x] Acceptance [] Non-Acceptance [] Refuses [x] Explanation [] Demonstration [x] Handout [] Tree And Shrub Technician [x] Verbalized Understanding [] Demonstrated Understanding [] Needs Reinforcement [] No Evidence of Learning [] Refused Teaching [] Teach Back Goals: Reinforcement of the benefits of daily physical activity, Provision of adequate intake via food andsupplement for vitamins and minerals and Select food consistent with nutrition education for low-sodium/diabetes/weight reduction Madelyn Kwok RD, LD Pager#[phone] documented in this encounter Plan of Treatment Upcoming Encounters Date Type Department Care Team (Late st Contact Info) Description 07/15/2024 9:00 AM EST Hospital Encounter [facility] Interventional Radiology [address] [place] [phone] Herve Carrillo MD [address] [facility] [address] [facility] [place] [address] documented as of this encounter Visit Diagnoses Not on filedocumented in this encounter Additional Health Concerns Assessment Noted Time PHQ-9 Depression Total Score: 0 08/21/19 18 11:00 AM EST documented as of this encounter Care Teams Maori Liaison Adviser Relationship Specialty Start Date End Date [place] [address] [place] [phone] PCP - General 08/18/17 06/23/21 documented as of this encounter
--- OUTSIDE RECORDS SUMMARY | 2024-07-12 13:02 | XMS_ITS ---
Author Name Man Sky Address [address] [place] [address] Phone [phone] Organization [facility], NA DOCUMENT DISCLAIMER Multiple document versions may exist, please be sure you review the latest version. The information in the [facility] Progress Note Document represents a providers documented clinical note containing certain health and medical information. It may not contain the complete medical history for the patient and should be independently verified. The represented time in the document is Eastern Time PROVIDER ROUNDING NOTE HHD PROVIDER?ROUNDING?NOTE?D Clinic:?[id number]?HOME?PROGRAM Visit?date:?11/28/2022?00:00?Modality/setting:?HHD Aiden?Eh?-?Chart?#:?[id number] Method?of?Interaction:?Face?to?face Date?of?Interaction:?10/12/2023 ?-?Patient?is?stable ?-?Medications?and?labs?reviewed. 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 ?07/27/2023?Temperature:?Temperature:?97.8?Pulse:?Pulse:?88?&#160 ;?Respirations:?Respirations:?18?&#160 ;?BP?(Sitting):?120/80?BP?(Sitting):?140/70?&#1 60;?BP?(Standing):?BP?(Standing):?& #160;?Weight?(kg):?Weight?(kg):?133.7?Height?date:?11/28/2022??& #160;?&# 160;?Height?(cm):?175???&# 160;?&# 160;?? HHD?Prescription More?Frequent?Dialysis?-?Based?on?provider's?assessment?of&# 160;patient?condition: ?-?Continue?with?greater?than?3x?more?frequent?dialysis?prescription Note?clinical?response?to?more?frequent?dialysis?or?any&#160 ;changes?to?patient's?condition?that?are?relevant: ?for?volume ??06/01/2023?Home?HD?using?NxStage?with?PureFlow?4X&#16 0;Week,?MonTueThuFri,?Estimated Treatment?Time:?3?hrs?0?min,?CAR?172,?Therapy?Fluid&#16 0;1.0?K?40?Lactate,?Volume?per Tx?50?(liters),?Max?FF:?100?%,?BFR:?450,?DFR:?17 L/hr,?Ordered?Max?UFR:?1 mL/Kg/hr,?EDW?134?(kg),?Access:?AVFistula-Standard,?Clinic?8198- Home?Machine?HHD?NxStage?System?One?S ?11/14/2019 Order?Diagnosis ICD10?Code?Diagnosis?Description ? 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 Urea?Clearance,?Urine?wstdKt/V?0.79?09/19/2023?-?2.2?09/19/23?0.92?08/28/2023?-?2.5?08/28/23?0.75?07/23/2023?-?2.4?07/23/23?? ?-?Adequacy?parameters?reviewed Adequacy ?-?Adequacy?target?met good Anemia ?HGB?g/dL? Transferrin?Sat.?(Calc)?%?Ferritin?ng/mL&#160 ;?13.4?09/19/23?36?09/19/23?494 ?09/19/23?? ?12.2?08/28/23?41?08/28/23?412 ?08/28/23?? ?12.4?07/23/23?34?07/23/23?580 ?05/24/23?? ?-?Anemia?reviewed mircera?on?hold Bone?and?Mineral?Metabolism ??Calcium,?Total?mg/dL?? Calcium,?Corrected?mg/dL ?&#1 60;??Phosphorous?mg/dL??? PTH-Intact,?Plasma?pg/mL ??8.3?09/19/23? 8.1?09/19/23?6.2&#16 0;?09/19/23?1501?09/19/23?8.4?08/28/23? 8.2?08/28/23?6.9&#16 0;?08/28/23?1879?08/28/23?8.0?07/23/23? 7.8?07/23/23?8.3&#16 0;?07/23/23?1690?07/23/23?Vitamin?D?25?Hydroxy?ng/mL?Calcimimetics?78.8?08/28/23?-?97.2?11/28/22?-?53.8?03/20/20?-? Calcium:? Phosphorus:?? PTH:?Above?target ?-?Bone?and?mineral?metabolism?parameters?reviewed he?is?tolerating?xphozah?will?increase?dose,?he?is?on&# 160;cinacalcet?for?hyperpara Nutrition ?Albumin?g/dL? eNPCR?g/kg/day?Bicarbonate?mEq/L??? Potassium,?Serum?mEq/L ?4.3?09/19/23?-?17?09/19/23?? ?6.0& #160;?09/19/23?? ?4.3?08/28/23?-?19?08/28/23?? ?5.8& #160;?08/28/23?? ?4.2?07/23/23?-?24?07/23/23?? ?5.1& #160;?07/23/23?? ?-?Nutrition?reviewed eating?halos,?will?recheck?k?may?need?lokelma?(he?has&# 160;some?at?home)?and?nahco3. Home?Medications Home?Medication?Reviewed:?Dipti?Hackett?08/25/2023?15:36:39?EST ?Home?Medications?(updated:?07/27/2023?14:27:21) Patient:?Eh, Aiden ??Shilpi?Low?Dose?Aspirin?(aspirin) 81?mg,?oral,?1?tablet?once?a?day ??calcium?acetate(phosphat?bind)?(calcium?acetate(phosphat?bind)) 667?mg,?oral,?4?capsule?three?times?a?day [Take?1?w/?snacks] ??carbamazepine?(carbamazepine) 200?mg,?oral,?1?tablet?every?night ??carvedilol?(carvedilol) 25?mg,?oral,?2?tablet?twice?a?day ??CellCept?(mycophenolate?mofetil) 250?mg,?oral,?1?capsule?twice?a?day ??cholecalciferol?(vitamin?D3)?(cholecalciferol?(vitamin?d3)) 625?mcg?(25,000?unit),?oral,?2?capsule?three?times?a week [Wrqjjvv-Ewqchxfj-Hpuioqpu] ??cinacalcet?(cinacalcet) 90?mg,?oral,?1?tablet?once?a?day [take?with?the?evening?meal] ??cyclosporine?(cyclosporine) 100?mg,?oral,?1?capsule?twice?a?day ??doxazosin?(doxazosin) 8?mg,?oral,?1?tablet?every?night ??entecavir?(entecavir) 0.5?mg,?oral,?1?tablet?once?a?week [Takes?on?Monday] ??folic?acid?(folic?acid) 1?mg,?oral,?1?tablet?once?a?day ??gabapentin?(gabapentin) 100?mg,?oral,?1?capsule?twice?a?day ??Humulin?70/30?U-100?KwikPen?(insulin?nph?and?regular human) 100?unit/mL?(70-30),?subQ,?48?unit?four?times?a?day [sliding?scale] ??hydralazine?(hydralazine) 100?mg,?oral,?1?tablet?twice?a?day ??lactulose?(lactulose) 10?gram/15?mL,?oral,?30?ml?once?a?day... There?are?additional?active?home?medications?for?this?patien t.?Please?view?in?Clinical?Summary Access?and?Evaluation Active/Maturing?Accesses ?Type?Position/Location?Status?Access?ID?AVFistula-Standard?Forearm-Left?Temporarily? Unusable?[id number]?CVCatheter-Tunneled?Chest?Active?(In?Use)?[id number]?-?-?&# 160;?-? -? Thrill ?-?Present Bruit ?-?Normal pt?underwent?angioplasty?of?avf?at?[facility]?now?having?less& #160;pain?will?get?surgery permission?to?start?using?it?again Infection Most?Recent?In-center?Antibiotic?Order 05/15/2020?Vancomycin?HCl?750?mg?IV?Every?Treatment?x?1 2?Times,?Clinic?[facility]-?Entered?By?ACSmith Exam ?-?Vital?signs?reviewed Pulmonary ?-?LUNGS?-?clear Cardiovascular ?-?CV?-?Blood?pressure?noted ?-?CV?-?RRR Edema ?-?EXT?-?No?edema Transplant?Status Topic Exploring?Alternative?Treatment?Options: Kidney?Transplant ?Person?Taught: ?-?Patient ?Additional?Education?Required:?No ?Date?Given:?11/14/2019 Interest?and?Eligibility?(If?changes?are?made,?Please?notify?SW?via?alert?below) ?Date?of?discussion?from?transplant?assessment:?03/10/2023 ?Patient?already?on?transplant?list??No ?Patient?interested?in?transplantation??Yes ?Has?patient's?physician?identified?one?or?more?exclusions per?the ?Contraindication?list?provided?by?the?transplant?center? ??No ?Patient?referred?for?transplantation??Yes,?per?physician?order ?Transplant?Comments: ??Pt?stated?already?working?with?[facility],?working?on?son?getting?evaluated?for?live donor. ??03/10/23?Pt?is?working?with?[facility]?on?transplant,?has?3?familly?members?interested in?being?living?donor.?continue?to?monitor?and?assist?ongoing. ?Transplant?center/state:?[place] Tobacco?Cessation ??Tobacco?use:?Never?used Mna?Jose Daniel,? END OF DOCUMENT
--- OUTSIDE RECORDS SUMMARY | 2024-07-12 13:03 | XMS_ITS | Clinical Summary ---
Author Organization [facility] Address [address] [place] [address] Care Team Providers Care Cuffing Machine Operator Name Role Phone Edgar Fournier MD Primary Care Provider [phone] Enrique Griffith MD Unavailable Allergies Active Allergy Reactions Criticality Noted Date Comments Codeine Anxiety Medium 06/02/2014 Tacrolimus Other - please docum ent in the comment field High 03/02/2021 Anxious feeling and muscle jerking. TOLERATED ENVARSUS BETTER THAN PROGRAF. Medications ergocalciferol (ergocalciferol) 1.25 MG (63901 UT) capsule Take 1 capsule (50,000 Units) by mouth 3 (three) times a week. Active pantoprazole (ProtoNix) 40 MG EC tablet Take 1 tablet (40 mg) by mouth 2 (two) times a day. Active aspirin 81 MG EC tablet Take 1 tablet (81 mg) by mouth 1 (one) time each day. Active doxazosin (Cardura) 8 MG tablet Take 1 tablet (8 mg) by mouth every night. Active mycophenolate (Cellcept) 250 MG capsule Take 1 capsule (250 mg) by mouth 2 (two) times a day. Active hydrALAZINE (Apresoline) 100 MG tablet Take 1 tablet (100 mg) by mouth 3 (three) times a day. Twice daily always. Midday dose as needed. Active entecavir (Baraclude) 0.5 MG tablet Take 1 tablet (0.5 mg) by mouth 1 (one) time per week. Take every . Active NIFEdipine XL (Procardia XL) 90 MG 24 hr tablet Take 1 tablet (90 mg) by mouth 2 (two) times a day. Active Calcium Acetate 667 MG tablet Take 4 tablets by mouth 3 (three) times a day with meals. Active cycloSPORINE modified (Gengraf) 25 MG capsule Take 4 capsules (100 mg) by mouth 2 (two) times a day. Active gabapentin (Neurontin) 800 MG tablet Take 0.5 tablets (400 mg) by mouth every other day. Active promethazine (Phenergan) 12.5 MG tablet Take 1 tablet (12.5 mg) by mouth every 8 (eight) hours if needed for nausea or vomiting. Active sevelamer carbonate (Renvela) 800 MG tablet Take 2 tablets (1,600 mg) by mouth 3 (three) times a day with meals. Swallow tablet whole; do not crush, break, or chew. Active carBAMazepine (TEGretol) 200 MG tablet Take 1 tablet (200 mg) by mouth 2 (two) times a day. Active testosterone cypionate (Depo-Testosterone) 200 MG/ML injection Inject 1 mL (200 mg) into the muscle every 28 (twenty-eigh t) days. Active lisinopril 40 MG tablet Take 1 tablet (40 mg) by mouth 1 (one) time each day. 3 Active ALPRAZolam (Xanax) 0.5 MG tablet Take 1 tablet (0.5 mg) by mouth if needed for anxiety. 3 Active carvedilol (Coreg) 25 MG tablet Take 2 tablets (50 mg) by mouth twice a day. 2 Active Vascepa 1 g capsule TAKE 2 Capsule by mouth twice daily 3 Active fluticasone (Flonase) 50 MCG/ACT nasal spray [place] 2 spray nasALLY once a day as directed 3 Active promethazine (Phenergan) 25 MG tablet Take 1 tablet (25 mg) by mouth every night. 3 Active montelukast (Singulair) 10 MG tablet Take 1 tablet (10 mg) by mouth 1 (one) time each day. 3 Active folic acid (Folvite) 1 MG tablet Take 1 tablet (1,000 mcg) by mouth 1 (one) time each day. 3 Active folic acid (Folvite) 1 MG tablet Take 1 tablet (1,000 mcg) by mouth 1 (one) time each day. 3 Active cinacalcet (Sensipar) 90 MG tablet TAKE 1 TABLET BY MOUTH ONCE A DAY DIRECTED WITH THE EVENING MEAL 3 Active calcitriol (Rocaltrol) 0.25 MCG capsule Take by mouth 1 (one) time each day. 3 Active Auryxia 1 GM 210 MG(Fe) tablet 3 Active Continuous Blood Gluc Roaster Supervisor (Dexcom G7 Roaster Supervisor) device USE DIRECTED by 3 Active Continuous Blood Gluc Sensor (Dexcom G7 Sensor) misc USE DIRECTED CHANGE every 10 DAYS 3 Active sodium zirconium cyclosilicate (Lokelma) 10 g packet Take 10 g by mouth 1 (one) time each day. 3 Active methocarbamol (Robaxin) 500 MG tablet TAKE ONE TABLET BY MOUTH FOUR TIMES DAILY (BEFORE MEALS AND AT BEDTIME) 3 Active Vitamin D3 1.25 MG (52053 UT) capsule take 1 Capsule by mouth 3 times weekly 3 Active insulin NPH, Isophane, (HumuLIN N) 100 UNIT/ML injection vial Inject 1-2 times per day as directed. 10 mL 11 3 Active Lantus SoloStar 100 UNIT/ML injection pen 3 Active ondansetron ODT (Zofran-ODT) 8 MG disintegrating tablet Take 1 tablet (8 mg) by mouth 3 (three) times a day if needed. 3 Active Active Problems Problem Noted Date Diagnosed Date History of liver transplant 07/18/2023 12/0 12/2022 Gastroesophageal reflux disease 07/18/2023 07/18/2023 Diabetes mellitus type 2 in obese 07/18/2023 Overview (11/13/2023): Diagnosis replaced per IMO Regulatory Update November 13, 2023 Multiple joint pain 07/18/2023 Fatigue 07/18/2023 Hyperkalemia 11/08/2021 Obesity, Class III, BMI 40-49.9 (morbid obesity) 11/08/2021 Pre-transplant evaluation for kidney transplant 01/28/2021 Type 2 diabetes mellitus wit h diabetic nephropathy, with long-term current use of insulin 01/28/2021 Neuropathy 01/28/2021 Background diabetic retinopathy 01/28/2021 Anxiety 06/09/2020 07/18/2023 Overview (07/18/2023): Last Assessment & Plan: He is not having anxiety now, but requests that he be permitted to have a PRN dose in afternoon if he is anxious. Currently on BID scheduled. PLAN: ?? Continue lorazepam 0.5 mg PO BID AND PRN lorazepam 0.5 mg PO once per day Sleep apnea 08/14/2019 07/18/2023 Overview (07/18/2023): Last Assessment & Plan: His home unit is here, but seems to be configured incorrectly. He is using hospital unit. PLAN: ?? CPAP overnight ESRD (end stage renal disease) 09/13/2018 1 09/18/2022 Overview (07/18/2023): Last Assessment & Plan: Tolerated dialysis well yesterday. PLAN: ?? Continue dialysis Hematochezia 12/28/2016 Nonalcoholic steatohepatitis (SAL) 04/28/2016 Overview (01/15/2021): Nonalcoholic steatohepatitis (SAL) Hypertension 02/03/2016 Anemia 10/08/2015 Obesity 07/30/2014 Uncontrolled diabetes mellitus 07/30/2014 Retinopathy Asterixis Resolved Problems Problem Noted Date Diagnosed Date Resolved Date Pre-liver transplant, listed 07/01/2016 01/28/2021 Overview (01/15/2021): Awaiting organ transplant status Awaiting transplantation of liver 04/28/2016 01/28/2021 Overview (01/15/2021): Encounter for other preprocedural examination Cirrhosis 04/28/2016 01/28/2021 Overview (01/15/2021): Unspecified cirrhosis of liver Hepatic encephalopathy 10/12/201501/28 Portal hypertension 06/02/2014 01/29/20 21 Esophageal varices without bleeding 12/24/2012 01/28/2021 Fatty (change of) liver, not elsewhere classified 10/25/2012 01/28/2021 Encounters Date Type Department Care Team Description 06/25/2024 Telephone [facility] Inter[facility]iology [address] [place] [phone] Mandi Arcos RN 06/24/2024 Telephone [facility] [address] [phone] Zion Virgen, JANA 05/27/2024 Telephone [facility] [address] [phone] Zion Virgen RN 04/30/2024 Telephone [facility] [address] [place] [phone] Margoth Escobar RN 04/26/2024 Telephone [facility] [address] [phone] Zion Virgen, RN from Last 3 Months Immunizations Name Administration Dates Next Due Hep A / Hep B 12/24/2012 Hep A, Adult 07/03/2014 Hep B, Adolescent/High Risk 07/26/1999 Hep B, adult 07/03/2014,12/31/1999,06/04/1999 Influenza, injectable, quadr ivalent, preservative free 08/08/2017 Pneumococcal Polysaccharide PPV23 08/08/2017, Family History Medical History Relation Name Comments Alcohol abuse Father Aiden Stauffer Sr Cancer Father Aiden Stauffer Sr Alcohol abuse Father's Brother Edwar Stauffer Diabetes Mother Kimberly Alcohol abuse Sister 1 Nadya Holder Cirrhosis Sister 2 Diabetes Sister 3 Nadya Relation Name Status Comments Father Aiden Stauffer Sr Father's Brother Edwar Stauffer Mother Kimberly Sister 1 Nadya Holder Sister 2 Sister 3 Nadya Social History Tobacco Use Types Packs/Day Years Used Date Smoking Tobacco: Never Passive Smoke Exposure: Never Smokeless Tobacco: Never Tobacco Cessation:Counseling Given: Not Answered Alcohol Use Standard Drinks/Week Comments Never 0 (1 standard drink = 0.6 oz pure alcohol) Alcoholic Drinks/day: Never Drank Alcohol Humiliation, Afraid, Rape, and Kick questionnair e Answer Date Recorded Within the last year, have y ou been afraid of your partner or ex-partner? No 10/09/2023 Within the last year, have y ou been humiliated or emotionally abused in other ways by your partner or ex-partner? No Within the last year, have y ou been kicked, hit, slapped, or otherwise physically hurt by your partner or ex-partner? No 10/09/2023 Within the last year, have y ou been raped or forced to have any kind of sexual activity by your partner or ex-partner? No 10/09/2023 PHQ-2 Answer Date Recorded Patient Health Questionnaire-2 Score 0 07/18/2023 Hunger Vital Sign Answer Date Recorded Within the past 12 months, y ou worried that your food would run out before you got the money to buy more. Never true 10/09/19 24 Within the past 12 months, t he food you bought just didn't last and you didn't have money to get more. Never true 10/09/2023 PRAPARE - Transportation Answer Date Re corded In the past 12 months, has l ack of transportation kept you from medical appointments or from getting medications? No 09/15 In the past 12 months, has l ack of transportation kept you from meetings, work, or from getting things needed for daily living? No 10/09/2023 Housing Stability Vital Sign Answer Gilbert e Recorded In the last 12 months, was t here a time when you were not able to pay the mortgage or rent on time? No 10/09/2023 In the last 12 months, how many places have you lived? 1 10/09/2023 In the last 12 months, was t here a time when you did not have a steady place to sleep or slept in a retirement (including now)? No 10/09/2023 Housing Stability Vital Sign Answer Gilbert e Recorded In the last 12 months, was t here a time when you were not able to pay the mortgage or rent on time? No 10/09/2023 Number of Times Moved in the Last Year Not on fi le 10/09/2023 Homeless in the Last Year Not on file 2023 Utilities Answer Date Recorded In the past 12 months has th e electric, gas, oil, or water company threatened to shut off services in your home? No 10/09/2023 PHQ-2A Answer Date Recorded Patient Health Questionnaire-2 Score 0 07/18/2023 Sex and Gender Information Value Date Recorded Sex Assigned at Not on file Legal Sex Male 6:10 PM EDT Gender Identity Not on file Sexual Orientation Straight 03/02/2021 10 :04 AM EDT Last Filed Vital Signs Vital Sign Reading Time Taken Comments Blood Pressure 135/101 10/16/2023 8:06 AM EST Pulse 90 10/16/2023 8:06 AM EST Temperature 37 ??C (98.6 ??F) 03/16/2023 2:02 PM EDT Respiratory Rate 16 07/18/2023 8:47 AM EST Oxygen Saturation 98% 07/18/2023 8:47 AM EST Inhaled Oxygen Concentration - - Weight 135 kg (298 lb 8.1 oz) 10/16/2023 8:06 AM EST Height 172.7 cm (5' 8 ) 07/18/2023 8:47 AM EST Body Mass Index 45.39 07/18/2023 8:47 AM EST Plan of Treatment Health Maintenance Due Date Last Done Comments [facility]-Medicare Annual Wellness (AWV) 1974 [facility]-Infant/Child/Adol SDOH Screenings 1974 Diabetes: Dental Exam 02/26/1984 [facility]-DTaP,Tdap,and Td Vaccines (1 - Tdap) 1993 [facility]-Zoster Vaccines (1 of 2) 1993 [facility]-Hepatitis A Vaccines (3 of 3 - Hep A Twinrix risk 3-dose series) 12/01/2014 07/03/2014, 12/24/2012 [facility]-Pneumococcal Vaccine: Pediatrics (0 to 5 Years) and At-Risk Patients (6 to 64 Years) (3 of 3 - PCV) 08/08/2018 08/08/2017, 01/05/2016 CT Colonography 2019 FIT-DNA 2019 FIT 2019 FOBT 2019 Sigmoidoscopy 2019 [id number] Vaccine (3 - Moderna risk series) 10/26/2021 09/28/2021, 08/17/2021 [facility]-Diabetes: Hemoglobin A1C 02/09/2024, 01/28/2021, 04/13/2017, Additional history exists [facility]- SDOH Screenings 04/08/2024 [facility]-Adult SDOH Screenings 04/08/2024 10/09/2023 [facility]-Influenza Vaccine (#1) 2024 08/08/2017 [facility]-Depression Screening 07/18/2024 07/18/2023 Colonoscopy 10/20/2026 10/20/2016 [facility]-Colorectal Cancer Screening 10/20/2026 [facility]-RSV Vaccine: 60+ Years or (1 - 1-dose 75+ series) 2049 [facility]-Hepatitis B Vaccines Completed 014, 12/24/2012, 12/31/1999, Additional history exists [facility]-HIV Screening Completed 03/16/2023, , 11/08/2021, Additional history exists [facility]-Hepatitis C Screening Completed 2022, 11/08/2021, 11/08/2021, Additional history exists [facility]-Obesity Intervention Completed 024, 07/18/2023, 06/29/2023, Additional history exists [facility]-HIB Vaccines Aged Out No longer e ligible based on patient's age to complete this topic [facility]-HPV Vaccines Aged Out No longer e ligible based on patient's age to complete this topic [facility]-IPV Vaccines Aged Out No longer e ligible based on patient's age to complete this topic [facility]-Rotavirus Vaccines Aged Out No lo nger eligible based on patient's age to complete this topic Procedures Procedure Name Priority Date/Time Associated Diagnosis Comments HEPATITIS C ANTIBODY W/REFLEX TO HCV QUANT PCR Routine 03/16/2023 1:57 PM EDT End stage renal disease (CMS/HCC) HIV 1/2 ANTIBODY/ANTIGEN SCREEN WITH REFLEX TO HIV I/II DIFFERENTIATION Routine 03/16/2023 1:57 PM EDT End stage renal disease (CMS/HCC) HEMOGLOBIN A1C Routine 01/28/2021 9:53 AM EDT ESRD (end stage renal disease) (CMS/HCC) COLONOSCOPY 10/20/2016 from Last 3 Months or Most Recently Relevant to Health Maintenance Results * HIV 1/2 Antibody/Antigen Screen (03/16/2023 1:57 PM EDT) Pathologist [facility] HIV 1 & 2 Antibody/Antigen Screen Non Reactive Non Reactive 03/16/2023 4:59 PM EDT [facility] Comment:Screening for HIV 1 & 2 antibodies, and P24 antigen is NONREACTIVE. No confirmatory testing is required. Blood Venous blood specimen / Unknown Venipuncture / Unknown 03/16/2023 1:57 PM EDT 03/16/2023 4:16 PM EDT us Petrona Sheppard MD LAB BLOOD ORDERABLES Final Resul t Performing Organization Address City/[facility] Co de Phone Number [facility] [address] [place] [address] * Hepatitis C Antibody (03/16/2023 1:57 PM EDT) Pathologist [facility] Hepatitis C Antibody Negative Negative 03/16/2023 5:00 PM EDT [facility] Blood Venous blood specimen / Unknown Venipuncture / Unknown 03/16/2023 1:57 PM EDT 03/16/2023 4:17 PM EDT us Petrona Sheppard MD LAB BLOOD ORDERABLES Final Resul t Performing Organization Address City/[facility]/ZIP Co de Phone Number [facility] [address] [place] [address] * (ABNORMAL) Hemoglobin A1c (01/28/2021 9:53 AM EDT) Hemoglobin A1c 6.0(H) <5.7 % 01/28/2021 10:49 AM EDT HEALTHCARE LAB Blood Venous blood specimen / Unknown Venipuncture / Unknown 01/28/2021 9:53 AM EDT 01/28/2021 10:40 AM EDT Narrative [facility] - 01/28/2021 10:49 AM EDT HA1C Interpretive Data: Diagnosis of Diabetes: Diabetic > or = 6.5% Pre-diabetic 5.7 to 6.4% Non-diabetic < or = 5.6% Glycemic Targets for Type I and Type II Diabetics: Non- Adults <7.0% Adults <6.0% Children and Adolescents <7.5% Source: ??[place] [employer]. Standards of medical care in diabetes,2017. Diabetes Care.2017:40 (suppl 1):S1-S135. HbA1c assay performed by an ion-exchange chromatography method that is certified traceable to the DCCT. us Petrona Sheppard MD LAB BLOOD ORDERABLES Final Resul t [facility] [address] [place] [id number] * COLONOSCOPY (10/20/2016) Anatomical Region Laterality Modality Endoscopy Narrative 10/20/2016 Ordered by an unspecified provider. Historical Provider GI PROCEDURE ORDERABLES F inal Result from Last 3 Months or Most Recently Relevant to Health Maintenance Insurance Pam [id number] JASON HERNANDEZ [id number] [place] Member Subscriber Plan / Payer (Ef fective 2021-Present) Name:Aiden Stauffer Relation to Subscriber:Self Name:Aiden Stauffer Payer ID:Not on file Group ID:Not on file Type:Medicaid Address: [address] [id number] [employer] Member Subscriber Plan / Payer ( fective 2021-) Name:Aiden Stauffer Addison Relation to Subscriber:Self Name:Aiden Staufferne Payer ID:Not on file Group ID:Not on file Type:Medicaid Address: [place] [id number] [employer] [place] Advance Directives * Full Code (Latest Code Status on File) Date Activated Date Inactivated Comments 11/08/2021 4:49 AM 11/09/2021 10:10 PM Patient wan ts full resuscitative measures if needed Question Answer Comments Patient has decision-making capacity? Yes Care Teams Cuffing Machine Operator Relationship Specialty Start Date End Date Edgar Fournier MD [address] [place] [phone] PCP - General 12/25/20 Enrique Griffith MD [address] [place] [phone] Referring Physician Nephrology 01/08/21
--- OUTSIDE RECORDS SUMMARY | 2024-07-12 13:03 | XMS_ITS ---
Author Name Man Sky Address [address] [place] [id number] Phone [phone] Organization [facility], NA DOCUMENT DISCLAIMER Multiple document versions may exist, please be sure you review the latest version. The information in the [facility] Progress Note Document represents a providers documented clinical note containing certain health and medical information. It may not contain the complete medical history for the patient and should be independently verified. The represented time in the document is Eastern Time PROVIDER ROUNDING NOTE HHD PROVIDER?ROUNDING?NOTE?D Clinic:?[id number]?HOME?PROGRAM Visit?date:?11/28/2022?00:00?Modality/setting:?HHD Aiden?Eh?-?Chart?#:?[id number] Method?of?Interaction:?Via?Telephone Reason:?Other Comments:?unable?to?transport?to?clinic Date?of?Interaction:?02/09/2024 ?-?Patient?is?stable ?-?Medications?and?labs?reviewed. 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 Vitals ?Most?recent?vitals:?Date:?02/09/2024?Collected?Date:?Temperature:?Temperature:?&#1 60;?Pulse:?Pulse:?& #160;?Respirations:?Respirations:?& #160;?BP?(Sitting):?BP?(Sitting):?&#1 60;?BP?(Standing):?BP?(Standing):?& #160;?Weight?(kg):?Weight?(kg):?134.9?Height?date:?11/28/2022??& #160;?&# 160;?Height?(cm):?175???&# 160;?&# 160;?? bp?drops?with?dialysis?he?may?need?midodrine HHD?Prescription More?Frequent?Dialysis?-?Based?on?provider's?assessment?of&# 160;patient?condition: ?-?Continue?with?greater?than?3x?more?frequent?dialysis?prescription Note?clinical?response?to?more?frequent?dialysis?or?any&#160 ;changes?to?patient's?condition?that?are?relevant: ?for?volume ??01/18/2024?Home?HD?using?NxStage?with?PureFlow?4X&#16 0;Week,?Jackelyn,?Estimated Treatment?Time:?3?hrs?0?min,?CAR?172,?Therapy?Fluid&#16 0;1.0?K?40?Lactate,?Volume?per Tx?50?(liters),?Max?FF:?100?%,?BFR:?450,?DFR:?17 L/hr,?Ordered?Max?UFR:?1 mL/Kg/hr,?EDW?133?(kg),?Access:?[facility],?Clinic?[address]- Home?Machine?HHD?NxStage?System?One?S ?11/14/2019 Order?Diagnosis ICD10?Code?Diagnosis?Description ? 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 Urea?Clearance,?Urine?wstdKt/V?0.88?12/29/2023?-?2.7?12/29/23?0.82?11/19/2023?-?2.0?11/19/23?0.78?11/12/2023?-?1.9?11/12/23?? ?-?Adequacy?parameters?reviewed Adequacy ?-?Adequacy?target?met good Anemia ?HGB?g/dL? Transferrin?Sat.?(Calc)?%?Ferritin?ng/mL&#160 ;?13.3?02/04/24?40?02/04/24?314 ?02/04/24?? ?12.7?12/29/23?20?01/16/24?242 ?01/16/24?? ?11.6?11/19/23?24?12/29/23?317 ?12/29/23?? ?-?Anemia?reviewed mircera?on?hold Bone?and?Mineral?Metabolism ??Calcium,?Total?mg/dL?? Calcium,?Corrected?mg/dL ?&#1 60;??Phosphorous?mg/dL??? PTH-Intact,?Plasma?pg/mL ??9.3?02/04/24? 9.1?02/04/24?9.0&#16 0;?02/04/24?942?02/04/24?9.5?01/16/24? 9.1?01/16/24?7.5&#16 0;?01/16/24?1398?01/08/24?9.4?12/29/23? 9.2?12/29/23?8.4&#16 0;?01/08/24?2284?12/29/23?Vitamin?D?25?Hydroxy?ng/mL?Calcimimetics?78.8?08/28/23?-?97.2?11/28/22?-?53.8?03/20/20?-? Calcium:?At?target Phosphorus:??Above?target PTH:?Above?target ?-?Bone?and?mineral?metabolism?parameters?reviewed he?is?tolerating?xphozah?30?bid,?he?is?on?cinacalcet&#1 60;for?hyperpara,?will?start velphoro?500?with?meals Nutrition ?Albumin?g/dL? eNPCR?g/kg/day?Bicarbonate?mEq/L??? Potassium,?Serum?mEq/L ?4.2?02/04/24?-?18?02/04/24?? ?6.0& #160;?02/04/24?? ?4.5?01/16/24?-?16?01/16/24?? ?7.2& #160;?01/16/24?? ?4.2?12/29/23?-?18?12/29/23?? ?7.0& #160;?01/08/24?? ?-?Nutrition?reviewed he?is?now?taking?nahco3?and?lokelma?bid. Home?Medications Home?Medication?Reviewed:?Li?Chelsie?02/09/2024?14:48:21?EDT ?Home?Medications?(updated:?01/23/2024?16:15:22) Patient:?Eh, Aiden ??Shilpi?Low?Dose?Aspirin?(aspirin) 81?mg,?oral,?1?tablet?once?a?day ??carbamazepine?(carbamazepine) 200?mg,?oral,?1?tablet?every?night ??carvedilol?(carvedilol) 25?mg,?oral,?2?tablet?twice?a?day ??CellCept?(mycophenolate?mofetil) 250?mg,?oral,?1?capsule?twice?a?day ??cholecalciferol?(vitamin?D3)?(cholecalciferol?(vitamin?d3)) 625?mcg?(25,000?unit),?oral,?2?capsule?three?times?a week [Seqhpiv-Sjewnyta-Gcgscskl] ??cinacalcet?(cinacalcet) 60?mg,?oral,?2?tablet?once?a?day [take?with?the?evening?meal] ??clonazepam?(clonazepam) 0.5?mg,?oral,?1?tablet?once?a?day ??cyclosporine?(cyclosporine) 25?mg,?oral,?4?capsule?every?morning ??cyclosporine?(cyclosporine) 25?mg,?oral,?5?capsule?every?night?at?bedtime ??doxazosin?(doxazosin) 8?mg,?oral,?1?tablet?every?night ??entecavir?(entecavir) 0.5?mg,?oral,?1?tablet?once?a?week [Takes?on?Monday] ??ergocalciferol?(vitamin?D2)?(ergocalciferol?(vitamin?d2)) 1,250?mcg?(50,000?unit),?oral,?1?capsule?as?directed [Monday,?Monday,?Monday] ??folic?acid?(folic?acid) 1?mg,?oral,?1?tablet?once?a?day ??gabapentin?(gabapentin) 300?mg,?oral,?1?capsule?once?a?day ??lactulose?(lactulose) 10?gram/15?mL,?oral,?30?ml?once?a?day [for?constipation]... There?are?additional?active?home?medications?for?this?patien t.?Please?view?in?Clinical?Summary Access?and?Evaluation Active/Maturing?Accesses ?Type?Position/Location?Status?Access?ID?AVFistula-Standard?Forearm-Left?Temporarily? Unusable?[id number]?CVCatheter-Tunneled?Chest?Active?(In?Use)?[id number]?-?-?&# 160;?-? -? avf?ligated,?he?is?getting?an?appt?with?u?susan?for new?avf Infection Most?Recent?In-center?Antibiotic?Order 05/15/2020?Vancomycin?HCl?750?mg?IV?Every?Treatment?x?1 2?Times,?Clinic?71-?Entered?By?ACSmith Exam ?-?Vital?signs?reviewed Edema ?-?EXT?-?No?edema per?pt?self?exam Transplant?Status Topic Exploring?Alternative?Treatment?Options: Kidney?Transplant ?Person?Taught: ?-?Patient ?Additional?Education?Required:?No ?Date?Given:?11/14/2019 Interest?and?Eligibility?(If?changes?are?made,?Please?notify?SW?via?alert?below) ?Date?of?discussion?from?transplant?assessment:?01/22/2024 ?Patient?already?on?transplant?list??No ?Patient?interested?in?transplantation??Yes ?Has?patient's?physician?identified?one?or?more?exclusions per?the ?Contraindication?list?provided?by?the?transplant?center? ??No ?Patient?referred?for?transplantation??Yes,?per?physician?order ?Transplant?center/[facility]:?[facility] ?Provider?Transplant?Comment: ??transplant?on?hold?for?bmi,?he?is?looking?into&# 160;laparoscopic?transplant?at?[facility] Tobacco?Cessation ??Tobacco?use:?Never?used Man?Jose Daniel,BRANDON END OF DOCUMENT
--- OUTSIDE RECORDS SUMMARY | 2024-07-12 13:03 | XMS_ITS | Encounter Summary ---
Author Organization [facility] Address [address] [id number] Care Team Providers Care Congressional Assistant Name Role Phone Edgar Fournier MD Primary Care Provider [phone] Enrique Griffith MD Unavailable [phone] Encounter Details Date Type Department Care Team (Late st Contact Info) Description 12/19/2023 Telephone [facility] [address] [facility] [address] [place] [phone] Zion Virgen, RN HOSPITAL KIDNEY [id number] [address] [place] [address] Social History Tobacco Use Types Packs/Day Years [...] slept in a penitentiary (including now)? No 10/09/2023 Housing Stability Vital [...] the past 12 months has th e [employer], gas, oil, or water company threatened to shut off services in your home? No 10/09/2023 PHQ-2A Answer Date Recorded Patient Health Questionnaire-2 Score 0 07/18/2023 Sex and Gender Information Value Date Recorded Sex Assigned at Not on file Legal Sex Male 6:10 PM EDT Gender Identity Not on file Sexual Orientation Straight 03/02/2021 10 :04 AM EDT documented as of this encounter Miscellaneous Notes * Telephone Encounter - Zion Virgen RN - 12/19/2023 10:39 AM EDT Received call from patient, patient asked about GI appointment on 12/27/23, coordinator stated that this would be related to potential gastric balloon procedure. Patient also had question about robotic kidney transplant. States that he'd heard of other centers performing these and that this would red uce/eliminate the need for him to lose more weight from his abdomen. Coordinator stated does plan on expanding into performing these, we aren't quite there yet. documented in this encounter Plan of Treatment Not on file documented as of this encounter Visit Diagnoses Not on filedocumented in this encounter Additional Health Concerns Assessment Noted Time A fall risk assessment has been complete d for the patient 07/18/2023 8:37 AM EST A Body Mass Index follow-up plan has been documented for the patient 10/16/2023 8:29 AM EST documented as of this encounter Care Teams Congressional Assistant Relationship Specialty Start Date End Date Edgar Fournier MD [address] [place] [address] PCP - General 12/25/20 Enrique Griffith MD [address] [place] [address] Referring Physician Nephrology 01/08/21 documented as of this encounter
--- OUTSIDE RECORDS SUMMARY | 2024-07-12 13:03 | XMS_ITS | Encounter Summary ---
Author Organization [facility] Address [address] [place] [address] Care Team Providers Care Energy Project Manager Name Role Phone Edgar Fournier MD Primary Care Provider [phone] Enrique Griffith MD Unavailable [phone] Encounter Details Date Type Department Care Team (Late st Contact Info) Description 11/28/2023 Telephone [facility] Women's Health [address] [place] [address] Eneida Richardson MD [address] [place] [address] Social History Tobacco Use Types Packs/Day Years [...] in a care home (including now)? No 10/09/2023 Housing Stability Vital [...] encounter Miscellaneous Notes * Telephone Encounter - Giraldo, Terrie L - 12/05/2023 11:29 AM EDT Spoke to patient, booked for November & February - CALL [phone] * Telephone Encounter - Giraldo, Terrie Mic - 11/28/2023 11:13 AM EDT ----- Message from Dariela Gramajo sent at 11/28/2023 10:26 AM EDT ----- Patient had to cancel appointment today due to sickness. Asking for a reschedule with Dr. Richardson. Does not have a preference on what days but asks for afternoons. Thank you. documented in this encounter Plan of Treatment [...] documented as of this encounter Care Teams Energy Project Manager Relationship Specialty Start Date End Date Edgar Fournier MD [address] [place] [address] PCP - General 12/25/20 Enrique Griffith MD [address] [place] [phone] Referring Physician Nephrology 01/08/21 documented as of this encounter
--- OUTSIDE RECORDS SUMMARY | 2024-07-12 13:03 | XMS_ITS | Encounter Summary ---
Author Organization [facility] Address [address] [id number] Care Team Providers Care Process Excellence Manager Name Role Phone Edgar Fournier MD Primary Care Provider [phone] Enrique Griffith MD Unavailable [phone] Encounter Details Date Type Department Care Team (Late st Contact Info) Description 08/10/2023 Telephone [facility] [address] [facility] [address] [place] [phone] Zion Virgen, RN HOSPITAL KIDNEY [id number] [address] [phone] Social History Tobacco Use Types Packs/Day Years Used Date Smoking Tobacco: Never Smokeless Tobacco: Never Alcohol Use Standard Drinks/Week Comments Never 0 (1 standard drink = 0.6 oz pure alcohol) Alcoholic Drinks/day: Never Drank Alcohol PHQ-2 Answer Date Recorded Patient Health Questionnaire-2 Score 0 07/18/2023 PHQ-2A Answer Date Recorded Patient Health Questionnaire-2 Score 0 07/18/2023 Sex and Gender Information Value Date Recorded Sex Assigned at Not on file Legal Sex Male 6:10 PM EDT Gender Identity Not on file Sexual Orientation Straight 03/02/2021 10 :04 AM EDT documented as of this encounter Miscellaneous Notes * Telephone Encounter - Zion Virgen RN - 08/10/2023 11:56 AM EST Called and spoke with patient, per patient weight down to 130-131 kilograms congratulated patient on weight loss, patient feels that following with Dr. Richardson is helping with weight loss. Coordinator to follow up after next visit with Dr. Richardson. documented in this encounter Plan of Treatment Not on file documented as of this encounter Visit Diagnoses Not on filedocumented in this encounter Additional Health Concerns Assessment Noted Time A fall risk assessment has been complete d for the patient 07/18/2023 8:37 AM EST A Body Mass Index follow-up plan has been documented for the patient 07/18/2023 9:42 AM EST documented as of this encounter Care Teams Process Excellence Manager Relationship Specialty Start Date End Date Edgar Fournier MD [address] [place] [address] PCP - General 12/25/20 Enrique Griffith MD [address] [place] [address] Referring Physician Nephrology 01/08/21 documented as of this encounter
--- OUTSIDE RECORDS SUMMARY | 2024-07-12 13:03 | XMS_ITS | Encounter Summary ---
Author Organization [facility] Address [address] [place] [address] Care Team Providers Care Line Inspector Name Role Phone Edgar Fournier MD Primary Care Provider [phone] Enrique Griffith MD Unavailable [phone] Encounter Details Date Type Department Care Team (Late st Contact Info) Description 10/03/2023 Telephone [facility] Women's Health [address] [place] [address] Eneida Richardson MD [address] [place] [address] Social History Tobacco Use Types [...] slept in a halfway (including now)? No 10/09/2023 Housing Stability Vital [...] encounter Miscellaneous Notes * Telephone Encounter - Aleksandra Giraldo - 10/11/2023 4:21 PM EST Patient is scheduled for October 15 - PH Call Only on [id number] * Telephone Encounter - Mandi Montoya - 10/04/2023 3:39 PM EST Patient states he tried Mounjaro and Ozempic and both give him bad GI upset(Diarrhea). He is askingfor something to help with weight loss and food urges. * Telephone Encounter - Aleksandra Giraldo - 10/03/2023 2:[address] Richardson! Aiden Really Needs something, anything to cut the urges! Please. He actually has 2 candidates for his Transplant!!! Pharmacy is now [facility] in [facility]. Please help! Chikis documented in this encounter Plan of Treatment [...] documented as of this encounter Care Teams Line Inspector Relationship Specialty Start Date End Date Edgar Fournier MD [address] [place] [address] PCP - General 12/25/20 Enrique Griffith MD [address] [place] [phone] Referring Physician Nephrology 01/08/21 documented as of this encounter
--- OUTSIDE RECORDS SUMMARY | 2024-07-12 13:03 | XMS_ITS | Encounter Summary ---
Author Organization [facility] Address [address] [place] [address] Care Team Providers Care Battery Starter Name Role Phone Edgar Fournier MD Primary Care Provider [phone] Enrique Griffith MD Unavailable [phone] Encounter Details Date Type Department Care Team (Latest Contact Info) Description 07/20/2023 Travel Social History Tobacco Use Types Packs/Day [...] as of this encounter Care Teams Battery Starter Relationship Specialty Start Date End Date Edgar Fournier MD [address] [place] [address] PCP - General 12/25/20 Enrique Griffith MD [address] [place] [address] Referring Physician Nephrology 01/08/21 documented as of this encounter
--- OUTSIDE RECORDS SUMMARY | 2024-07-12 13:03 | XMS_ITS | Encounter Summary ---
Author Organization [facility] Address [address] [id number] Care Team Providers Care Health Center Associate Name Role Phone Edgar Fournier MD Primary Care Provider [phone] Enrique Griffith MD Unavailable [phone] Encounter Details Date Type Department Care Team (Late st Contact Info) Description 01/01/2024 Telephone [facility] Transplant [facility] [address] [facility] [address] [place] [phone] Zion Virgen, RN HOSPITAL KIDNEY [id number] [address] [place] [address] Social History Tobacco Use Types Packs/Day Years [...] slept in a jail (including now)? No 10/09/2023 Housing Stability Vital [...] the past 12 months has th e [employer], gas, oil, or water company threatened to [...] Telephone Encounter - Zion Virgen RN - 01/01/2024 2:11 PM EDT Called and spoke with patient, patient confirms that he cancelled 12/26 GI appointment, patient is wishing to pursue robotic kidney transplant in [place], [place]. States that is assisting with this process. Wished patient good luck with this and stated that if there is any records/testing required from us to please let coordinator know. Patient states he would do so. documented in this encounter Plan of Treatment [...] as of this encounter Care Teams Health Center Associate Relationship Specialty Start Date End Date Edgar Fournier MD [address] [place] [address] PCP - General 12/25/20 Enrique Griffith MD [address] [place] [address] Referring Physician Nephrology 01/08/21 documented as of this encounter
--- OUTSIDE RECORDS SUMMARY | 2024-07-12 13:03 | XMS_ITS | Encounter Summary ---
Author Organization [facility] Address [address] [phone] Care Team Providers Care Security And Compliance Analyst Name Role Phone Edgar Fournier MD Primary Care Provider [phone] Enrique Griffith MD Unavailable [phone] Encounter Details Date Type Department Care Team (Late st Contact Info) Description 02/12/2024 Telephone [facility] [address] [facility] [address] [place] [phone] Zion Virgen, RN HOSPITAL KIDNEY [id number] [address] [phone] Social History Tobacco Use Types Packs/Day Years [...] in a skilled nursing (including now)? No 10/09/2023 Housing Stability Vital [...] the past 12 months has th e [employer], gas, oil, or water company threatened to [...] Telephone Encounter - Zion Virgen RN - 02/12/2024 11:16 AM EDT Called and spoke with patient, patient had previously asked coordinator about robotic assisted transplant surgeries as he had heard that Dr. Zambrano was performing these at . Coordinator had discussed this with surgeon and today related to patient that we are likely 1-2 years away from performing robotic assisted transplant surgeries here at . Patient stated that this is fine and that He's currently been approved at [facility] for surgery and that he has donors being worked up there. Coordinator congratulated patient and stated to let us know if there is anything we can assist with. documented in this encounter Plan of Treatment [...] as of this encounter Care Teams Security And Compliance Analyst Relationship Specialty Start Date End Date Edgar Fournier MD [address] [place] [address] PCP - General 12/25/20 Enrique Griffith MD [address] [place] [phone] Referring Physician Nephrology 01/08/21 documented as of this encounter
--- OUTSIDE RECORDS SUMMARY | 2024-07-12 13:03 | XMS_ITS | Encounter Summary ---
Author Organization [facility] Address [address] [phone] Care Team Providers Care Workforce Advisor Name Role Phone Edgar Fournier MD Primary Care Provider [phone] Enrique Griffith MD Unavailable [phone] Encounter Details Date Type Department Care Team (Late st Contact Info) Description 04/01/2024 Telephone [facility]plant [facility] [address] [facility] [address] [place] [phone] Laura Ortiz, RN [facility] [address] [place] [address] Social History Tobacco Use Types Packs/Day Years [...] encounter Miscellaneous Notes * Telephone Encounter - Laura Ortiz RN - 04/01/2024 3:32 PM EDT Patient states he had some testing done at a transplant center in [place] yesterday, available [facility]. He is trying to have stress test scheduled here and has already been referred, just wants coordinator to know. Note to Adrian to please request images from CT scan documented in this encounter Plan of Treatment [...] documented as of this encounter Care Teams Workforce Advisor Relationship Specialty Start Date End Date Edgar Fournier MD [address] [place] [address] PCP - General 12/25/20 Enrique Griffith MD [address] [place] [phone] Referring Physician Nephrology 01/08/21 documented as of this encounter
--- OUTSIDE RECORDS SUMMARY | 2024-07-12 13:03 | XMS_ITS ---
Author Name [facility] Address [address] [place] [address] Phone [phone] Organization [facility], NA DOCUMENT DISCLAIMER Multiple document versions may exist, please be sure you review the latest version. The information in the [facility] Progress Note Document represents a providers documented clinical note containing certain health and medical information. It may not contain the complete medical history for the patient and should be independently verified. The represented time in the document is Eastern Time PROVIDER ROUNDING NOTE HHD PROVIDER?ROUNDING?NOTE?D Clinic:?[facility]?HOME?PROGRAM Visit?date:?11/28/2022?00:00?Modality/setting:?HHD Aiden?Eh?-?Chart?#:?[id number] Method?of?Interaction:?Via?Telephone Reason:?Other Comments:?snowstorm?no?transportation Date?of?Interaction:?08/31/2023 ?-?Patient?is?stable ?-?Medications?and?labs?reviewed. 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 Vitals ?Most?recent?vitals:?Date:?08/31/2023?Collected?Date:?? ?07/27/2023?Temperature:?Temperature:?97.8?Pulse:?100?Pulse:?88?&# 160;?Respirations:?Respirations:?18?&#160 ;?BP?(Sitting):?130/90?BP?(Sitting):?140/70?&#1 60;?BP?(Standing):?BP?(Standing):?& #160;?Weight?(kg):?Weight?(kg):?133.7?Height?date:?11/28/2022??& #160;?&# 160;?Height?(cm):?175???&# 160;?&# 160;?? HHD?Prescription More?Frequent?Dialysis?-?Based?on?provider's?assessment?of&# 160;patient?condition: ?-?Continue?with?greater?than?3x?more?frequent?dialysis?prescription Note?clinical?response?to?more?frequent?dialysis?or?any&#160 ;changes?to?patient's?condition?that?are?relevant: ?for?volume ??06/01/2023?Home?HD?using?NxStage?with?PureFlow?4X&#16 0;Week,?MonTueThuFri,?Estimated Treatment?Time:?3?hrs?0?min,?CAR?172,?Therapy?Fluid&#16 0;1.0?K?40?Lactate,?Volume?per Tx?50?(liters),?Max?FF:?100?%,?BFR:?450,?DFR:?17 L/hr,?Ordered?Max?UFR:?1 mL/Kg/hr,?EDW?134?(kg),?Access:?AVFistula-Standard,?Clinic?1398- Home?Machine?HHD?NxStage?System?One?S ?11/14/2019 Order?Diagnosis ICD10?Code?Diagnosis?Description ? 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 Urea?Clearance,?Urine?wstdKt/V?0.75?07/23/2023?-?2.4?07/23/23?0.88?06/14/2023?-?2.7?06/14/23?0.69?05/24/2023?-?2.0?05/24/23?? ?-?Adequacy?parameters?reviewed Adequacy ?-?Adequacy?target?met good,?he?wants?to?cut?time Anemia ?HGB?g/dL? Transferrin?Sat.?(Calc)?%?Ferritin?ng/mL&#160 ;?12.4?07/23/23?34?07/23/23?580 ?05/24/23?? ?11.4?06/29/23?51?06/29/23?799 ?02/16/23?? ?12.6?06/14/23?37?06/14/23?472 ?11/28/22?? ?-?Anemia?reviewed mircera?on?hold Bone?and?Mineral?Metabolism ??Calcium,?Total?mg/dL?? Calcium,?Corrected?mg/dL ?&#1 60;??Phosphorous?mg/dL??? PTH-Intact,?Plasma?pg/mL ??8.0?07/23/23? 7.8?07/23/23?8.3&#16 0;?07/23/23?1879?08/28/23?9.0?06/14/23? 8.8?06/14/23?10.4&#1 60;?06/29/23?1690?07/23/23?8.2?05/24/23? 8.0?05/24/23?7.2&#16 0;?06/14/23?1811?06/29/23?Vitamin?D?25?Hydroxy?ng/mL?Calcimimetics?97.2?11/28/22?-?53.8?03/20/20?-?49.2?02/17/20?-? Calcium:? Phosphorus:??Above?target PTH:? he?is?tolerating?xphozah Nutrition ?Albumin?g/dL? eNPCR?g/kg/day?Bicarbonate?mEq/L??? Potassium,?Serum?mEq/L ?4.2?07/23/23?-?24?07/23/23?? ?5.1& #160;?07/23/23?? ?4.3?06/14/23?-?21?06/14/23?? ?5.4& #160;?06/14/23?? ?4.2?05/24/23?-?21?05/24/23?? ?4.8& #160;?05/24/23?? ?-?Nutrition?reviewed good Home?Medications Home?Medication?Reviewed:?Dipti?Hackett?08/25/2023?15:36:39?EST ?Home?Medications?(updated:?07/27/2023?14:27:21) Patient:?Eh, Aiden ??Shilpi?Low?Dose?Aspirin?(aspirin) 81?mg,?oral,?1?tablet?once?a?day ??calcium?acetate(phosphat?bind)?(calcium?acetate(phosphat?bind)) 667?mg,?oral,?4?capsule?three?times?a?day [Take?1?w/?snacks] ??carbamazepine?(carbamazepine) 200?mg,?oral,?1?tablet?every?night ??carvedilol?(carvedilol) 25?mg,?oral,?2?tablet?twice?a?day ??CellCept?(mycophenolate?mofetil) 250?mg,?oral,?1?capsule?twice?a?day ??cholecalciferol?(vitamin?D3)?(cholecalciferol?(vitamin?d3)) 625?mcg?(25,000?unit),?oral,?2?capsule?three?times?a week [Qfpqana-Hytovqih-Teucdpul] ??cinacalcet?(cinacalcet) 90?mg,?oral,?1?tablet?once?a?day [take?with?the?evening?meal] ??cyclosporine?(cyclosporine) 100?mg,?oral,?1?capsule?twice?a?day ??doxazosin?(doxazosin) 8?mg,?oral,?1?tablet?every?night ??entecavir?(entecavir) 0.5?mg,?oral,?1?tablet?once?a?week [Takes?on?Monday] ??folic?acid?(folic?acid) 1?mg,?oral,?1?tablet?once?a?day ??gabapentin?(gabapentin) 100?mg,?oral,?1?capsule?twice?a?day ??Humulin?70/30?U-100?KwikPen?(insulin?nph?and?regular human) 100?unit/mL?(70-30),?subQ,?48?unit?four?times?a?day [sliding?scale] ??hydralazine?(hydralazine) 100?mg,?oral,?1?tablet?twice?a?day ??lactulose?(lactulose) 10?gram/15?mL,?oral,?30?ml?once?a?day... There?are?additional?active?home?medications?for?this?patien t.?Please?view?in?Clinical?Summary Last?Hospitalization ?Admission?Date:?08/11/2023 ?Discharge?Date:?08/14/2023 ?Discharge?Diagnosis: ?-?E87.5?-?Hyperkalemia Access?and?Evaluation Active/Maturing?Accesses ?Type?Position/Location?Status?Access?ID?AVFistula-Standard?Forearm-Left?Temporarily? Unusable?[id number]?CVCatheter-Tunneled?Chest?Active?(In?Use)?[id number]?-?-?&# 160;?-? -? Thrill ?-?Present Bruit ?-?Normal Buttonhole ?-?Erythematous pt?underwent?angioplasty?of?avf?at?[facility]?now?having?less pain Infection Most?Recent?In-center?Antibiotic?Order 05/15/2020?Vancomycin?HCl?750?mg?IV?Every?Treatment?x?1 2?Times,?Clinic?71-?Entered?By?ACSmith Exam ?-?Vital?signs?reviewed Edema ?-?EXT?-?No?edema per?pt?self?exam Transplant?Status Topic Exploring?Alternative?Treatment?Options: Kidney?Transplant ?Person?Taught: ?-?Patient ?Additional?Education?Required:?No ?Date?Given:?11/14/2019 Interest?and?Eligibility?(If?changes?are?made,?Please?notify?SW?via?alert?below) ?Date?of?discussion?from?transplant?assessment:?03/10/2023 ?Patient?already?on?transplant?list??No ?Patient?interested?in?transplantation??Yes ?Has?patient's?physician?identified?one?or?more?exclusions per?the ?Contraindication?list?provided?by?the?transplant?center? ??No ?Patient?referred?for?transplantation??Yes,?per?physician?order ?Transplant?Comments: ??Pt?stated?already?working?with?[facility],?working?on?son?getting?evaluated?for?live donor. ??03/10/23?Pt?is?working?with?[facility]?on?transplant,?has?3?familly?members?interested in?being?living?donor.?continue?to?monitor?and?assist?ongoing. ?Transplant?center/state:?[facility] Tobacco?Cessation ??Tobacco?use:?Never?used Man?Jose Daniel,? END OF DOCUMENT
--- OUTSIDE RECORDS SUMMARY | 2024-07-12 13:03 | XMS_ITS | Encounter Summary ---
Author Organization [facility] Address [address] [place] [address] Care Team Providers Care Kiln Furniture Caster Name Role Phone Edgar Fournier MD Primary Care Provider [phone] Enrique Griffith MD Unavailable [phone] Encounter Details Date Type Department Care Team (Late st Contact Info) Description 04/30/2024 Telephone [facility] [address] [place] [address] Margoth Escobar, RN [facility]-VASCULAR & INTERVENTIONAL RADIOLOGY Social History Tobacco Use Types Packs/Day Years [...] slept in a half-way (including now)? No 10/09/2023 Housing Stability Vital [...] as of this encounter Care Teams Kiln Furniture Caster Relationship Specialty Start Date End Date Edgar Fournier MD [address] [place] [address] PCP - General 12/25/20 Enrique Griffith MD [address] [place] [phone] Referring Physician Nephrology 01/08/21 documented as of this encounter
--- OUTSIDE RECORDS SUMMARY | 2024-07-12 13:03 | XMS_ITS | Encounter Summary ---
Author Organization [facility] Address [address] [id number] Care Team Providers Care Geology Scientist Name Role Phone Edgar Fournier MD Primary Care Provider [phone] Enrique Griffith MD Unavailable [phone] Encounter Details Date Type Department Care Team (Late st Contact Info) Description 10/11/2023 Telephone [facility] Transplant Center [address] [facility] [address] [place] [phone] Zion Virgen, RN HOSPITAL KIDNEY [id number] [address] [id number] Social History Tobacco Use Types Packs/Day Years [...] slept in a assisted (including now)? No 10/09/2023 Housing Stability Vital [...] Telephone Encounter - Zion Virgen RN - 10/11/2023 11:24 AM EST Called and spoke with patient, informed him of committee discussion, discussed gastric balloon procedure and asked if this is something that patient would be interested in pursuing if it is a procedure that we perform at and if patient is ultimately a candidate. Explained that Dr. Sheppard is to reach out to GI surgery and discuss possibility of procedure. Informed patient that once coordinator does hear back from surgeon that coordinator would call and discuss next steps with him. Patient verbalized understanding and denies further needs/questions at present. documented in this encounter Plan of Treatment [...] documented as of this encounter Care Teams Geology Scientist Relationship Specialty Start Date End Date Edgar Fournier MD [address] [place] [address] PCP - General 12/25/20 Enrique Griffith MD [address] [place] [phone] Referring Physician Nephrology 01/08/21 documented as of this encounter
--- OUTSIDE RECORDS SUMMARY | 2024-07-12 13:03 | XMS_ITS | Encounter Summary ---
Author Organization [facility] Address [address] [place] [address] Care Team Providers Care Configuration Management Consultant Name Role Phone Edgar Fournier MD Primary Care Provider [phone] Enrique Griffith MD Unavailable [phone] Encounter Details Date Type Department Care Team (Latest Contact Info) Description 10/16/2023 Travel Social History Tobacco Use Types Packs/Day [...] in a senior care (including now)? No 10/09/2023 Housing Stability Vital [...] of this encounter Care Teams Configuration Management Consultant Relationship Specialty Start Date End Date Edgar Fournier MD [address] [place] [address] PCP - General 12/25/20 Enrique Griffith MD [address] [place] [phone] Referring Physician Nephrology 01/08/21 documented as of this encounter
--- OUTSIDE RECORDS SUMMARY | 2024-07-12 13:03 | XMS_ITS | Encounter Summary ---
Author Organization [facility] Address [address] [place] [address] Care Team Providers Care Electroplater Name Role Phone Edgar Fournier MD Primary Care Provider [phone] Enrique Griffith MD Unavailable [phone] Encounter Details Date Type Department Care Team (Latest Contact Info) Description 07/18/2023 Travel Social History Tobacco Use Types Packs/Day [...] documented as of this encounter Care Teams Electroplater Relationship Specialty Start Date End Date Edgar Fournier MD [address] [place] [address] PCP - General 12/25/20 Enrique Griffith MD [address] [place] [address] Referring Physician Nephrology 01/08/21 documented as of this encounter
--- OUTSIDE RECORDS SUMMARY | 2024-07-12 13:03 | XMS_ITS | Encounter Summary ---
Author Organization [facility] Address [address] [place] [address] Care Team Providers Care Microwave Technician Name Role Phone Edgar Fournier MD Primary Care Provider [phone] Enrique Griffith MD Unavailable [phone] Reason for Referral * Imaging (Routine) - Pending Review Specialty Diagnoses / Procedures Referred By Declan hines Referred To Contact Radiology Diagnoses Pre-transplant evaluation for kidney transplant Procedures IR Tunneled CVC Replacement Complete IR Tunneled Central Venous Catheter Placement 5+ Years Consult to Interventional Radiology Petrona Sheppard MD [address] [address] Phone: tel: fax: Referral ID Status Reason Start Date Expiration Date V isits Requested Visits Authorized [id number] Pending Review 06/24/2024 12/24/2025 1 1 Encounter Details Date Type Department Care Team (Late st Contact Info) Description 06/24/2024 Telephone [facility] [address] [address] Zion Virgen RN [facility] KIDNEY [id number] [address] [place] [address] Social History Tobacco Use Types Packs/Day Years [...] slept in a custodial (including now)? No 10/09/2023 Housing Stability Vital [...] Telephone Encounter - Zion Virgen RN - 06/24/2024 3:10 PM EST Received call from patient, had extensive conversation, patient having issues with tunneled dialysis cath, states it's functioning for now but sounds as if it may have partially occluded, would like to know if coordinator can schedule him to see IR, coordinator states that he can place referral butthat if he needs to be seen quickly recommended coming to ED. Patient states he would do so if need be but that he would first like to try being seen by IR. Coordinator stated he would place referral. Additionally patient states that he's almost finished with eval at [place], states that he was told he needed to see SW and surgeon again prior to activation. Patient asked if it would be possible for him to meed with Dr. Zambrano to discuss robotic surgery. Coordinator stated that while he could ce rtainly set up appointment he doesn't necessarily know what to tell patient to expect in terms of what the surgeon might say but recommended that he complete eval and listing at [place]. Patient states he would do so and would reach back out to coordinator once listed. documented in this encounter Plan of Treatment Scheduled Orders Name Type Priority Associated Diagnoses Orde r Schedule IR Tunneled CVC Replacement Complete Imaging Routine Pre-transplant evaluation for kidney transplant Expected: 06/24/2024 (Approximate), Expires: 06/24/2025 documented as of this encounter Visit Diagnoses Diagnosis Pre-transplant evaluation for kidney transplant- Primary documented in this encounter Additional Health Concerns Assessment Noted Time A fall risk assessment has been complete d for the patient 07/18/2023 8:37 AM EST A Body Mass Index follow-up plan has been documented for the patient 10/16/2023 8:29 AM EST documented as of this encounter Care Teams Microwave Technician Relationship Specialty Start Date End Date Edgar Fournier MD [address] [place] [address] PCP - General 12/25/20 Enrique Griffith MD [address] [place] [phone] Referring Physician Nephrology 01/08/21 documented as of this encounter
--- OUTSIDE RECORDS SUMMARY | 2024-07-12 13:03 | XMS_ITS | Encounter Summary ---
Author Organization [facility] Address [address] [place] [address] Care Team Providers Care Technical Editor Name Role Phone Edgar Fournier MD Primary Care Provider [phone] Enrique Griffith MD Unavailable [phone] Reason for Referral * Consultation (Routine) - Authorized Specialty Diagnoses / Procedures Referred By Declan hines Referred To Contact Gastroenterology Diagnoses Pre-transplant evaluation for kidney transplant Petrona Sheppard MD [address] [facility] [address] [place] [address] Phone: tel: fax: Gerald Mora MD [address] [facility] [address] [place] [address] Phone: tel: fax: Referral ID Status Reason Start Date Expiration Date Visits Requested Visits Authorized [id number] Authorized Specialty Services Required 10/13/2023 04/13/2025 1 1 Scheduling Instructions Pre renal transplant eval patient, referring for possible evaluation for gastric balloon for weight loss Encounter Details Date Type Department Care Team (Late st Contact Info) Description 10/13/2023 Telephone [facility] [address] [place] [address] Zion Virgen, RN [facility] KIDNEY [id number] [address] [place] [address] Social History Tobacco Use Types Packs/Day Years [...] slept in a usp (including now)? No 10/09/2023 Housing Stability Vital [...] Telephone Encounter - Zion Virgen RN - 10/13/2023 1:33 PM EST Called and spoke with patient, informed him that coordinator would be placing order to have him PorscherUbaldo Mora with GI to possibly evaluate him for gastric balloon procedure for weight loss. Patientamenable to having appointment scheduled, informed him he would receive call from manager multimedia to set up appointment documented in this encounter Plan of Treatment Scheduled Referrals Name Type Priority Associated Diagnoses Order Schedule Ambulatory referral to Gastroenterology Outpatient Referral Routine Pre-transplant evaluation for kidney transplant Expected: 10/13/2023 (Approximate), Expires: 04/14/2025 documented as of this encounter Visit Diagnoses Diagnosis Pre-transplant evaluation for kidney transplant- Primary documented in this encounter Additional Health Concerns Assessment Noted Time A fall risk assessment has been complete d for the patient 07/18/2023 8:37 AM EST A Body Mass Index follow-up plan has been documented for the patient 07/18/2023 9:42 AM EST documented as of this encounter Care Teams Technical Editor Relationship Specialty Start Date End Date Edgar Fournier MD [address] [place] [address] PCP - General 12/25/20 Enrique Griffith MD [address] [place] [address] Referring Physician Nephrology 01/08/21 documented as of this encounter
--- OUTSIDE RECORDS SUMMARY | 2024-07-12 13:03 | XMS_ITS | Encounter Summary ---
Author Organization [facility] Address [address] [place] [address] Care Team Providers Care Coal Crusher Operator Name Role Phone Edgar Fournier MD Primary Care Provider [phone] Enrique Griffith MD Unavailable [phone] Reason for Referral * Imaging (Routine) - Authorized Specialty Diagnoses / Procedures Referred By Declan hines Referred To Contact Radiology Diagnoses Pre-transplant evaluation for kidney transplant Procedures IR Tunneled CVC Replacement Complete Consult to Interventional Radiology Petrona Sheppard MD [address] [facility] [address] [place] [address] Phone: tel: fax: Referral ID Status Reason Start Date Expiration Date V isits Requested Visits Authorized [id number] Authorized 04/26/2024 10/26/2025 1 1 Encounter Details Date Type Department Care Team (Late st Contact Info) Description 04/26/2024 Telephone [facility] [address] [address] Zion Virgen RN [facility] KIDNEY [id number] [address] [place] [address] Social History Tobacco Use Types [...] Telephone Encounter - Zion Virgen RN - 04/26/2024 11:35 AM EDT Received call from patient, patient states that he has dialysis cath to [facility] that is not functioningand has not functioned since Monday and patient states that he is already beginning to feel symptomatic from this. Coordinator stated that he would place order for referral to interventional radiology but that as it may not be likely that he hears from them today and he is already symptomatic it would be best for him to come to ED, patient verbalized understanding and states he would do so if he does not hear from IR today. Referral to IR placed. documented in this encounter Plan of Treatment Scheduled Orders Name Type Priority Associated Diagnoses Orde r Schedule IR Tunneled CVC Replacement Complete Imaging Routine Pre-transplant evaluation for kidney transplant Expected: 04/26/2024 (Approximate), Expires: 04/26/2025 documented as of this encounter Visit Diagnoses Diagnosis Pre-transplant evaluation for kidney transplant- Primary documented in this encounter Additional Health Concerns Assessment Noted Time A fall risk assessment has been complete d for the patient 07/18/2023 8:37 AM EST A Body Mass Index follow-up plan has been documented for the patient 10/16/2023 8:29 AM EST documented as of this encounter Care Teams Coal Crusher Operator Relationship Specialty Start Date End Date Edgar Fournier MD [address] [place] [id number] PCP - General 12/25/20 Enrique Griffith MD [address] [place] [phone] Referring Physician Nephrology 01/08/21 documented as of this encounter
--- OUTSIDE RECORDS SUMMARY | 2024-07-12 13:03 | XMS_ITS | Encounter Summary ---
Author Organization [facility] Address [address] [place] [id number] Care Team Providers Care Tobacco Warehouse Manager Name Role Phone Edgar Fournier MD Primary Care Provider [phone] Enrique Griffith MD Unavailable [phone] Encounter Details Date Type Department Care Team (Late st Contact Info) Description 10/10/2023 Telephone [facility] [address] [facility] [address] [place] [address] Zion Virgen, RN [facility]NEY [id number] [address] [place] [id number] Social History Tobacco Use Types Packs/Day Years [...] Telephone Encounter - Zion Virgen RN - 10/10/2023 12:35 PM EST Called, and had extensive conversation with patient, patient states that his weight is back up to 135kg, despite dieting, following with Dr. Richardson, was unable to tolerate weight loss medications, and has been told he is not a candidate for bariatric surgery. It has been 6 months since patient last seen in clinic. Patient does not particularly wish to RTC as he knows it would likely be the same outcome/discussion as the last time he was seen. Coordinator stated he would add patient to committee for tomorrow and see what physicians recommend, patient verbalized understanding, denies further needs/questions at present. documented in [...] documented as of this encounter Care Teams Tobacco Warehouse Manager Relationship Specialty Start Date End Date Edgar Fournier MD [address] [place] [address] PCP - General 12/25/20 Enrique Griffith MD [address] [place] [phone] Referring Physician Nephrology 01/08/21 documented as of this encounter
--- OUTSIDE RECORDS SUMMARY | 2024-07-12 13:03 | XMS_ITS | Encounter Summary ---
Author Organization [facility] Address [address] [place] [address] Care Team Providers Care Biomaterials Engineer Name Role Phone Edgar Fournier MD Primary Care Provider [phone] Enrique Griffith MD Unavailable [phone] Encounter Details Date Type Department Care Team (Late st Contact Info) Description 06/25/2024 Telephone [facility] Interventional Radiology [address] [place] [address] Mandi Arcos, RN [facility] INTERVENTIONAL RADIOLOGY Social History [...] slept in a chcf (including now)? No 10/09/2023 Housing Stability Vital [...] documented as of this encounter Care Teams Biomaterials Engineer Relationship Specialty Start Date End Date Edgar Fournier MD [address] [place] [address] PCP - General 12/25/20 Enrique Griffith MD [address] [place] [phone] Referring Physician Nephrology 01/08/21 documented as of this encounter
--- OUTSIDE RECORDS SUMMARY | 2024-07-12 13:03 | XMS_ITS ---
Author Name [facility] Address [address] [place] [address] Phone [phone] Organization [facility], NA DOCUMENT DISCLAIMER Multiple document versions may exist, please be sure you review the latest version. The information in the [facility] Progress Note Document represents a providers documented clinical note containing certain health and medical information. It may not contain the complete medical history for the patient and should be independently verified. The represented time in the document is Eastern Time PROVIDER ROUNDING NOTE HHD PROVIDER?ROUNDING?NOTE?D Clinic:?[facility]?HOME?PROGRAM Visit?date:?11/28/2022?00:00?Modality/setting:?HHD Aiden?Eh?-?Chart?#:?[id number] Method?of?Interaction:?Via?Telephone Reason:?Other Comments:?no?transportation Date?of?Interaction:?08/31/2023 ?-?Patient?is?stable ?-?Medications?and?labs?reviewed. 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 Vitals ?Most?recent?vitals:?Date:?09/07/2023?Collected?Date:?? ?07/27/2023?Temperature:?Temperature:?97.8?Pulse:?Pulse:?88?&#160 ;?Respirations:?Respirations:?18?&#160 ;?BP?(Sitting):?120/80?BP?(Sitting):?140/70?&#1 60;?BP?(Standing):?BP?(Standing):?& #160;?Weight?(kg):?Weight?(kg):?133.7?Height?date:?11/28/2022??& #160;?&# 160;?Height?(cm):?175???&# 160;?&# 160;?? HHD?Prescription More?Frequent?Dialysis?-?Based?on?provider's?assessment?of&# 160;patient?condition: ?-?Continue?with?greater?than?3x?more?frequent?dialysis?prescription Note?clinical?response?to?more?frequent?dialysis?or?any&#160 ;changes?to?patient's?condition?that?are?relevant: ?for?volume ??06/01/2023?Home?HD?using?NxStage?with?PureFlow?4X&#16 0;Week,?MonTueThuFri,?Estimated Treatment?Time:?3?hrs?0?min,?CAR?172,?Therapy?Fluid&#16 0;1.0?K?40?Lactate,?Volume?per Tx?50?(liters),?Max?FF:?100?%,?BFR:?450,?DFR:?17 L/hr,?Ordered?Max?UFR:?1 mL/Kg/hr,?EDW?134?(kg),?Access:?AVFistula-Standard,?Clinic?9272- Home?Machine?HHD?NxStage?System?One?S ?11/14/2019 Order?Diagnosis ICD10?Code?Diagnosis?Description ? 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 Urea?Clearance,?Urine?wstdKt/V?0.92?08/28/2023?-?2.5?08/28/23?0.75?07/23/2023?-?2.4?07/23/23?0.88?06/14/2023?-?2.7?06/14/23?? ?-?Adequacy?parameters?reviewed Adequacy ?-?Adequacy?target?met good,?he?wants?to?cut?time Anemia ?HGB?g/dL? Transferrin?Sat.?(Calc)?%?Ferritin?ng/mL&#160 ;?12.2?08/28/23?41?08/28/23?412 ?08/28/23?? ?12.4?07/23/23?34?07/23/23?580 ?05/24/23?? ?11.4?06/29/23?51?06/29/23?799 ?02/16/23?? ?-?Anemia?reviewed mircera?on?hold Bone?and?Mineral?Metabolism ??Calcium,?Total?mg/dL?? Calcium,?Corrected?mg/dL ?&#1 60;??Phosphorous?mg/dL??? PTH-Intact,?Plasma?pg/mL ??8.4?08/28/23? 8.2?08/28/23?6.9&#16 0;?08/28/23?1879?08/28/23?8.0?07/23/23? 7.8?07/23/23?8.3&#16 0;?07/23/23?1690?07/23/23?9.0?06/14/23? 8.8?06/14/23?10.4&#1 60;?06/29/23?1811?06/29/23?Vitamin?D?25?Hydroxy?ng/mL?Calcimimetics?78.8?08/28/23?-?97.2?11/28/22?-?53.8?03/20/20?-? Calcium:? Phosphorus:??Above?target PTH:?Above?target ?-?Bone?and?mineral?metabolism?parameters?reviewed he?is?tolerating?xphozah Nutrition ?Albumin?g/dL? eNPCR?g/kg/day?Bicarbonate?mEq/L??? Potassium,?Serum?mEq/L ?4.3?08/28/23?-?19?08/28/23?? ?5.8& #160;?08/28/23?? ?4.2?07/23/23?-?24?07/23/23?? ?5.1& #160;?07/23/23?? ?4.3?06/14/23?-?21?06/14/23?? ?5.4& #160;?06/14/23?? ?-?Nutrition?reviewed good Home?Medications Home?Medication?Reviewed:?Dipti?Hackett?08/25/2023?15:36:39?EST ?Home?Medications?(updated:?07/27/2023?14:27:21) Patient:?Eh, Aiden ??Shilpi?Low?Dose?Aspirin?(aspirin) 81?mg,?oral,?1?tablet?once?a?day ??calcium?acetate(phosphat?bind)?(calcium?acetate(phosphat?bind)) 667?mg,?oral,?4?capsule?three?times?a?day [Take?1?w/?snacks] ??carbamazepine?(carbamazepine) 200?mg,?oral,?1?tablet?every?night ??carvedilol?(carvedilol) 25?mg,?oral,?2?tablet?twice?a?day ??CellCept?(mycophenolate?mofetil) 250?mg,?oral,?1?capsule?twice?a?day ??cholecalciferol?(vitamin?D3)?(cholecalciferol?(vitamin?d3)) 625?mcg?(25,000?unit),?oral,?2?capsule?three?times?a week [Adbgrgz-Ifwttcql-Xsxwbfhq] ??cinacalcet?(cinacalcet) 90?mg,?oral,?1?tablet?once?a?day [take?with?the?evening?meal] ??cyclosporine?(cyclosporine) 100?mg,?oral,?1?capsule?twice?a?day ??doxazosin?(doxazosin) 8?mg,?oral,?1?tablet?every?night ??entecavir?(entecavir) 0.5?mg,?oral,?1?tablet?once?a?week [Takes?on?Monday] ??folic?acid?(folic?acid) 1?mg,?oral,?1?tablet?once?a?day ??gabapentin?(gabapentin) 100?mg,?oral,?1?capsule?twice?a?day ??Humulin?70/30?U-100?KwikPen?(insulin?nph?and?regular human) 100?unit/mL?(70-30),?subQ,?48?unit?four?times?a?day [sliding?scale] ??hydralazine?(hydralazine) 100?mg,?oral,?1?tablet?twice?a?day ??lactulose?(lactulose) 10?gram/15?mL,?oral,?30?ml?once?a?day... There?are?additional?active?home?medications?for?this?patien t.?Please?view?in?Clinical?Summary Access?and?Evaluation Active/Maturing?Accesses ?Type?Position/Location?Status?Access?ID?AVFistula-Standard?Forearm-Left?Temporarily? Unusable?[id number]?CVCatheter-Tunneled?Chest?Active?(In?Use)?[id number]?-?-?&# 160;?-? -? Difficulty?with?cannulation ?-?No pt?underwent?angioplasty?of?avf?at?[facility]?now?having?less pain Infection Most?Recent?In-center?Antibiotic?Order 05/15/2020?Vancomycin?HCl?750?mg?IV?Every?Treatment?x?1 2?Times,?Clinic?7119-?Entered?By?ACSmith Exam ?-?Vital?signs?reviewed Edema ?-?EXT?-?No?edema per?pt?self?exam Transplant?Status Topic Exploring?Alternative?Treatment?Options: Kidney?Transplant ?Person?Taught: ?-?Patient ?Additional?Education?Required:?No ?Date?Given:?11/14/2019 Interest?and?Eligibility?(If?changes?are?made,?Please?notify?SW?via?alert?below) ?Date?of?discussion?from?transplant?assessment:?03/10/2023 ?Patient?already?on?transplant?list??No ?Patient?interested?in?transplantation??Yes ?Has?patient's?physician?identified?one?or?more?exclusions per?the ?Contraindication?list?provided?by?the?transplant?center? ??No ?Patient?referred?for?transplantation??Yes,?per?physician?order ?Transplant?Comments: ??Pt?stated?already?working?with?[facility],?working?on?son?getting?evaluated?for?live donor. ??03/10/23?Pt?is?working?with?[facility]?on?transplant,?has?3?familly?members?interested in?being?living?donor.?continue?to?monitor?and?assist?ongoing. ?Transplant?center/state:?[facility] Tobacco?Cessation ??Tobacco?use:?Never?used Man?Jose Daniel,? END OF DOCUMENT
--- OUTSIDE RECORDS SUMMARY | 2024-07-12 13:03 | XMS_ITS ---
Author Name Leah, Clinic Address [address] [place] [id number] Phone [phone] Organization [facility] e, NA DOCUMENT DISCLAIMER Multiple document versions may exist, please be sure you review the latest version. The information in the [facility] Continuity of Care Document represents a summary of certain health and medical information. It may not contain the complete medical history for the patient and should be independently verified. The represented time in the document is Eastern Time. PROBLEMS Problem Code Status Onset Date Other complication of vascul ar dialysis catheter, subsequent encounter T82.49XD Active May 14, 2024 Breakdown (mechanical) of va scular dialysis catheter, initial encounter T82.41XA Active April End stage renal disease N18.6 Active Sept emb2023 Other complication of vascul ar dialysis catheter, initial encounter T82.49XA Active April 17, 2024 End stage renal disease N18.6 Active Kevin 2023 Hyperkalemia E87.5 Active August 16 4 Hypocalcemia E83.51 Active June 12 3 Secondary hyperparathyroidism of renal origin N25.81 Active January 31, 2023 snf (current) use of opiate analgesic Z79.891 Active December 08, 2022 snf (current) use of insulin Z79.4 Active December 08, 2022 snf (current) use of aspirin Z79.82 Active December 08, 2022 manager long term care (current) use of antimetabolite agent Z79.63 1 Active December 08, 2022 manager long term care (current) use of calcineurin inhibitor Z79.6 21 Active December 08, 2022 Iron deficiency anemia, unspecified D50.9 Activ e December 02, 2022 Hyperkalemia E87.5 Active December 01, 2022 Disorder of phosphorus metabolism, 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 Active December 01, 2022 Encounter for therapeutic drug level monitoring Z51.81 Active November 28, 2022 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 Active Apri l 07, 2023 Anemia in chronic kidney disease D63.1 Active November 18, 2022 Hypertensive chronic kidney disease with stage 5 chronic kidney disease or end stage renal disease I12.0 Active November 18, 2022 manager long term care (current) use of i nhibitors of nucleotide synthesis Z79.624 Active November 18, 2022 Long-term (current) use of i njectable non-insulin antidiabetic drugs Z79.85 Active November 18, 2022 manager long term care (current) use of aspirin Z79.82 Active November 18, 2022 Dependence on renal dialysis Z99.2 Active November 18, 2022 Type 2 diabetes mellitus wit h diabetic chronic kidney disease E11.22 Active September 26, 2019 End stage renal disease N18.6 Active Febr [id number] ALLERGIES AND ADVERSE REACTIONS Substance Reaction Severity Status calcitriol Abdominal Pain Active tacrolimus Unknown Active CODEINE Unknown Active SOCIAL HISTORY Tobacco Use Status Tobacco Type Never smoker - Caregiver Characteristics No Information Available Characteristics of Home environment No Information Available MEDICATIONS Prescribed Medications for Dialysis Treatments Medication Instructions Dosage Route Start Date End Date Stat us Heparin Pork 1,000 Units/mL CatheterLock SelfAdmin Home Arterial Every Treatment 2500 units Arterial Red Port August 18, 2023 August 16, 2024 Active Heparin Pork 1,000 Units/mL CatheterLock SelfAdmin Home Venous Every Treatment 2500 units Venous Blue Port August 18, 2023 August 16, 2024 Active Heparin Pork 1,000 Units/mL Systemic Self Administer Home Bolus, Every Treatment 8000 units Intravenous - push June 10, 2024 June 09, 2025 Active Iron Sucrose (Venofer) Self Administer at Home Once 100 mg Intravenous - push July 05, 2024 Discontinued Iron Sucrose (Venofer) Self Administer at Home Once 100 mg Intravenous - push June 11, 2024 Discontinued Iron Sucrose (Venofer) Self Administer at Home Once 100 mg Intravenous - push June 16, 2024 Discontinued Iron Sucrose (Venofer) Self Administer at Home Once 100 mg Intravenous - push June 15, 2024 Discontinued Iron Sucrose (Venofer) Self Administer at Home Once 100 mg Intravenous - push June 18, 2024 Discontinued Home Medications Medication Instructions Dosage Route Start Date End Date Stat us alprazolam 0.5 mg Take by mouth once a day as needed 1 tablet ORAL July 08, 2024 Active Shilpi Low Dose Aspirin 81 mg Take by mouth once a day 1 tablet ORAL November 12, 2019 Active carbamazepine 200 mg Take by mouth twice a day 1 tablet ORAL July 08, 2024 Active carvedilol 25 mg Take by mouth twice a day as directed 2 tablet ORAL December 08, 2022 Active CellCept 250 mg Take by mouth twice a day 1 capsule ORAL November 12, 2019 Active cholecalciferol (vitamin D3) 625 mcg (25,000 unit) Take by mouth three times a week as directed 2 capsule ORAL December 08, 2022 Active cinacalcet 60 mg Take by mouth once a day as directed 3 tablet ORAL May 30, 2024 Active cyclosporine 25 mg Take by mouth every morning 4 capsule ORAL November 14, 2023 Active cyclosporine 25 mg Take by mouth every night at bedtime 5 capsule ORAL November 14, 2023 Active doxazosin 8 mg Take by mouth every night as directed 1 tablet ORAL March 04, 2020 Active entecavir 0.5 mg Take by mouth once a week 1 tablet ORAL June 29, 2020 Active ergocalciferol (vitamin D2) 1,250 mcg (50,000 unit) Take by mouth as directed 1 capsule ORAL November 14, 2023 Active fenofibrate micronized 134 mg Take by mouth once a day 1 capsule ORAL July 08, 2024 Active fexofenadine 180 mg Take by mouth once a day 1 tablet ORAL July 08, 2024 Active folic acid 1 mg Take by mouth once a day as directed 1 tablet ORAL December 08, 2022 Active gabapentin 800 mg Take by mouth twice a day 1 tablet ORAL July 08, 2024 Active Humulin N NPH Insulin KwikPen 100 unit/mL (3 mL) Inject subcutaneously every morning 40 unit SUBCUTANEOUS July 08, 2024 Active hydralazine 100 mg Take by mouth three times a day 1 tablet ORAL July 08, 2024 Active lactulose 10 gram/15 mL Take once a day as needed 30 ml ORAL July 27, 2023 Active Lokelma 10 gram Take by mouth twice a day as directed 1 packet ORAL January 23, 2024 Active midodrine 5 mg Take twice a day as directed 1 tablet ORAL November 23, 2023 Active montelukast 10 mg Take by mouth once a day as directed 1 tablet ORAL December 08, 2022 Active nifedipine 90 mg Take by mouth twice a day 1 tablet ORAL November 12, 2019 Active Novolog FlexPen U-100 Insulin 100 unit/mL (3 mL) subcutaneously three times a day with meals 5 SUBCUTANEOUS July 08, 2024 Active pantoprazole 40 mg Take by mouth twice a day as directed 1 tablet ORAL December 08, 2022 Active paricalcitol 2 mcg Take once a day 1 capsule ORAL May 30, 2024 Active polyethylene glycol 3350 17 gram Take by mouth once a day as needed 1 packet ORAL July 08, 2024 Active promethazine 25 mg Take by mouth every eight hours as needed 1 tablet ORAL November 14, 2023 Active testosterone cypionate 200 mg/mL Inject intramuscularly as directed 1 kit INTRAMUSCULAR November 14, 2023 Active Tums 200 mg calcium (500 mg) Take by mouth every night at bedtime as directed 2 tablet ORAL April 30, 2024 Active Vascepa 1 gram Take by mouth twice a day 2 capsule ORAL November 14, 2023 Active Xphozah 30 mg Take three times a day with meals 1 tablet ORAL October 12, 2023 Active Zofran 4 mg Take by mouth every six hours as needed 1 tablet ORAL February 12, 2020 Active clonazepam 0.5 mg Take by mouth once a day as needed 1 tablet ORAL July 08, 2024 Discontinued gabapentin 300 mg Take by mouth once a day as directed 1 capsule ORAL July 08, 2024 Discontinued Lantus U-100 Insulin 20-30 Administer subcutaneously twice a day 20-30 subcutaneousl y July 08, 2024 Discontinued methocarbamol 500 mg Take by mouth once a day as needed 1 tablet ORAL July 08, 2024 Discontinued ondansetron HCl 4 mg Take by mouth every eight hours as needed 1 tablet ORAL July 08, 2024 Discontinued Zemplar 1 mcg Take by mouth once a day 1 capsule ORAL July 08, 2024 Discontinued VITAL SIGNS Post-Treatment Vital Signs Vital Sign Value Date / Time Blood Pressure-sitting 161/113 mmHg July 09, 2024 07:24 PM Blood Pressure-standing 159/111 mmHg July 09, 2024 07:24 PM Heart Rate 99 beats per minute July 09, 2024 07:24 PM Temperature 98.4 deg. F July 09 07:24 PM Weight Vital Sign Value Date / Time Estimated Dry Weight 133 kg June 11:59 PM Pre-Dialysis 134.4 kg July 09 07:24 PM Post-Dialysis 132.6 kg July 09 07:24 PM Other Other Value Date / Time Height 175.26 cm November 28, 2022 1 2:00 AM Body Mass Index 43.43 kg/m2 July 09 01:07 PM HEALTH CONCERNS Tuberculosis Testing TST Date Administered TST Date Read TST Result 11/28/2022 12/01/2022 Negative (<5) mm LAB RESULTS Hematology Result Type Result Value Relevant Referen ce Range Interpretation Date Folate, Serum > 24.0 ng/mL No Reference Ran ge Provided - August 28, 2023 UIBC (Calc) 240 mcg/dL 155 - 355 mcg/dL - January Ferritin 242 ng/mL 22 - 322 ng/mL - January 15, 024 Transferrin Sat. (Calc) 20 % 20 - 55 % - January 16, 2024 TIBC 300 mcg/dL 185 - 515 mcg/dL - January 16, 2024 Platelets 265 1000/mcL 130 - 400 1000/mcL - February 04, 2024 WBC (No Diff) 5.86 1000/mcL 4.80 - 10.80 1000/mcL - February 04, 2024 Ferritin 314 ng/mL 22 - 322 ng/mL - February 03, 024 Transferrin Sat. (Calc) 40 % 20 - 55 % - February 04, 2024 TIBC 318 mcg/dL 185 - 515 mcg/dL - February 04, 2024 Neutrophils 58.7 % 40.0 - 75.0 % - February 03, 024 UIBC (Calc) 191 mcg/dL 155 - 355 mcg/dL - January Neutrophils 62.6 % 40.0 - 75.0 % - February 25 024 UIBC (Calc) 239 mcg/dL 155 - 355 mcg/dL - February Ferritin 224 ng/mL 22 - 322 ng/mL - February 25 024 Transferrin Sat. (Calc) 22 % 20 - 55 % - February 26, 2024 TIBC 305 mcg/dL 185 - 515 mcg/dL - February 26, 2024 Platelets 212 1000/mcL 130 - 400 1000/mcL - February 26, 2024 WBC (No Diff) 6.72 1000/mcL 4.80 - 10.80 1000/mcL - February 26, 2024 Platelets 282 1000/mcL 130 - 400 1000/mcL - 2023 TIBC 292 mcg/dL 185 - 515 mcg/dL - March Transferrin Sat. (Calc) 12 % 20 - 55 % Low March 19, 2024 Neutrophils 71.0 % 40.0 - 75.0 % - March 19, 2024 Ferritin 298 ng/mL 22 - 322 ng/mL - March 19, 2024 WBC (No Diff) 5.37 1000/mcL 4.80 - 10.80 1000/mcL - March 19, 2024 UIBC (Calc) 257 mcg/dL 155 - 355 mcg/dL - March 19, 2024 Monocytes 7.0 % 3.0 - 10.0 % - April Lymphocytes 22.6 % 19.0 - 48.0 % - April 24, 2024 Neutrophils 65.5 % 40.0 - 75.0 % - April 24, 2024 WBC (No Diff) 5.55 1000/mcL 4.80 - 10.80 1000/mcL - April 24, 2024 ISAEL 1.9 % 0.0 - 4.0 % - April 24, 2024 Basophils 0.8 % 0.0 - 1.5 % - April 24, 2024 Eosinophil 2.2 % 0.0 - 7.0 % - April 24, 2024 Ferritin 352 ng/mL 22 - 322 ng/mL High April 24, 2024 Transferrin Sat. (Calc) 31 % 20 - 55 % - April 24 TIBC 309 mcg/dL 185 - 515 mcg/dL - Aprembe r 2023 UIBC (Calc) 214 mcg/dL 155 - 355 mcg/dL - 2023 Iron 95 mcg/dL 45 - 160 mcg/dL - April 24, 2024 RDW 18.4 % 11.5 - 14.5 % High April 142023 MCHC 30.5 g/dL 30.0 - 36.0 g/dL - e r 2023 MCH 32.5 pg 27.0 - 31.0 pg High April 24, 2024 Platelets 321 1000/mcL 130 - 400 1000/mcL - Apr Hemoglobin x 3 29.1 % 42.0 - 54.0 % Low 2023 Neutrophils 76.1 % 40.0 - 75.0 % High May Lymphocytes 12.9 % 19.0 - 48.0 % Low May Ferritin 420 ng/mL 22 - 322 ng/mL High May TIBC 263 mcg/dL 185 - 515 mcg/dL - May 21, 2024 Transferrin Sat. (Calc) 14 % 20 - 55 % Low May 21, 2024 UIBC (Calc) 226 mcg/dL 155 - 355 mcg/dL - May 21, 2024 Iron 37 mcg/dL 45 - 160 mcg/dL Low May Hemoglobin x 3 28.5 % 42.0 - 54.0 % Low May 21, 2024 Platelets 301 1000/mcL 130 - 400 1000/mcL - Octo laureano 2023 RDW 17.6 % 11.5 - 14.5 % High May 21, 2024 ISAEL 2.8 % 0.0 - 4.0 % - May 21 WBC (No Diff) 7.12 1000/mcL 4.80 - 10.80 1000/mcL - May 21, 2024 Eosinophil 1.6 % 0.0 - 7.0 % - May 21 024 Basophils 0.6 % 0.0 - 1.5 % - May 21 024 Monocytes 6.1 % 3.0 - 10.0 % - May 21, 2024 MCHC 30.8 g/dL 30.0 - 36.0 g/dL - May 21, 2024 MCH 32.5 pg 27.0 - 31.0 pg High May Neutrophils 77.7 % 40.0 - 75.0 % High June 142023 Eosinophil 2.5 % 0.0 - 7.0 % - July 01, 2024 Lymphocytes 10.8 % 19.0 - 48.0 % Low June 142023 Monocytes 6.3 % 3.0 - 10.0 % - July 01, 2024 Hemoglobin x 3 31.5 % 42.0 - 54.0 % Low Novembe r 2023 Platelets 226 1000/mcL 130 - 400 1000/mcL - Nove mber 2023 Retic HGB (CHr) 32.4 pg 25.4 - 31.8 pg High 2023 MCH 32.9 pg 27.0 - 31.0 pg High June 142023 MCHC 33.1 g/dL 30.0 - 36.0 g/dL - July 01, 2024 HCT 31.8 % 42.0 - 52.0 % Low June RDW 16.1 % 11.5 - 14.5 % High June HGB 10.5 g/dL 14.0 - 18.0 g/dL Low July 01, 2024 Iron 89 mcg/dL 45 - 160 mcg/dL - July 01, 2024 Transferrin Sat. (Calc) 33 % 20 - 55 % - July 01 UIBC (Calc) 179 mcg/dL 155 - 355 mcg/dL - 2023 TIBC 268 mcg/dL 185 - 515 mcg/dL - July 01, 2024 Ferritin 530 ng/mL 22 - 322 ng/mL High June 142023 WBC (No Diff) 9.57 1000/mcL 4.80 - 10.80 1000/mcL - July 01, 2024 RBC 3.20 mill/mcL 4.70 - 6.10 mill/mcL Low July 01, 2024 Basophils 0.2 % 0.0 - 1.5 % - July 01, 2024 ISAEL 2.5 % 0.0 - 4.0 % - July 01, 2024 Metabolic/Renal Result Type Result Value Relevant Referen ce Range Interpretation Date Hemoglobin A1c 6.3 % 4.8 - 5.9 % High February 26, 2024 BUN 45 mg/dL 6 - 19 mg/dL High April Bicarbonate 21 mEq/L 20 - 31 mEq/L - April 24, 2024 Chloride 105 mEq/L 96 - 108 mEq/L - April 24, 2024 Potassium 5.0 mEq/L 3.5 - 5.1 mEq/L - April 24, 2024 Sodium 138 mEq/L 136 - 145 mEq/L - April 24, 2024 BUN/Creat Ratio 5.0 10.0 - 20.0 Low 2023 Creatinine, Serum 9.02 mg/dL 0.60 - 1.30 mg/dL High April 24, 2024 BUN, Post 38 mg/dL 6 - 19 mg/dL High April BUN 35 mg/dL 6 - 19 mg/dL High April Potassium 5.1 mEq/L 3.5 - 5.1 mEq/L - May Chloride 103 mEq/L 96 - 108 mEq/L - May Creatinine, Serum 10.10 mg/dL 0.60 - 1.30 mg/dL High May 21, 2024 BUN/Creat Ratio 4.6 10.0 - 20.0 Low May 21, 2024 BUN 46 mg/dL 6 - 19 mg/dL High May 21, 2024 Sodium 140 mEq/L 136 - 145 mEq/L - May Bicarbonate 25 mEq/L 20 - 31 mEq/L - May Hemoglobin A1c 5.9 % 4.8 - 5.9 % - May BUN, Post 18 mg/dL 6 - 19 mg/dL - May 21, 2024 URR, Calc 61 % 65 - 80 % Low May 21 Creatinine, Serum 12.27 mg/dL 0.60 - 1.30 mg/dL High July 01, 2024 BUN 83 mg/dL 6 - 19 mg/dL High July 01, 2024 BUN, Post 39 mg/dL 6 - 19 mg/dL High July 01, 2024 URR, Calc 53 % 65 - 80 % Low July 01 Potassium 5.4 mEq/L 3.5 - 5.1 mEq/L High July 01, 2024 Chloride 99 mEq/L 96 - 108 mEq/L - June 142023 BUN/Creat Ratio 6.8 10.0 - 20.0 Low July 01, 2024 Sodium 134 mEq/L 136 - 145 mEq/L Low July 01, 2024 Bicarbonate 19 mEq/L 20 - 31 mEq/L Low June 142023 Potassium 5.2 mEq/L 3.5 - 5.1 mEq/L High July 09, 2024 HD Adequacy Result Type Result Value Relevant Referen ce Range Interpretation Date wstdKt/V without residual 2.6 No Reference Range Provided - May 21, 2024 Simple Kt/V (Home HD Only) 0.94 No Reference Range Provided Normal May 21, 2024 spKt/V Daugirdas II (HHD) 1.02 No Reference Range Provided Normal May 21, 2024 wstdKt/V, residual 0.0 No Reference Range Provided - May 21, 2024 wstdKt/V 2.6 No Reference Ran ge Provided - May 21, 2024 spKt/V Daugirdas II (HHD) 0.86 No Reference Range Provided Normal July 01, 2024 Simple Kt/V (Home HD Only) 0.76 No Reference Range Provided Normal July 01, 2024 wstdKt/V, residual 0.0 No Reference Range Provided - July 01, 2024 wstdKt/V without residual 2.4 No Reference Range Provided - July 01, 2024 wstdKt/V 2.4 No Reference Ran ge Provided - July 01, 2024 Bone/Mineral Result Type Result Value Relevant Referen ce Range Interpretation Date Vitamin D 25 Hydroxy 78.8 ng/mL 30.0 - 100.0 ng/mL - August 28, 2023 Magnesium 1.8 mg/dL 1.6 - 2.6 mg/dL - August 142023 Magnesium 1.8 mg/dL 1.6 - 2.6 mg/dL - November 19, 2023 PTH-Intact, Plasma 942 pg/mL 16 - 80 pg/mL High Jan Magnesium 1.8 mg/dL 1.6 - 2.6 mg/dL - February 26, 2024 PTH-Intact, Plasma 1746 pg/mL 16 - 80 pg/mL High Feb PTH-Intact, Plasma 460 pg/mL 16 - 80 pg/mL High Mar ust 2023 PTH-Intact, Plasma 1560 pg/mL 16 - 80 pg/mL High Apr Corrected Ca x P Product 36 0 - 54 - April 24 Ca x P Product 36 0 - 54 - April 24, 2024 Phosphorus 4.4 mg/dL 2.6 - 4.5 mg/dL - April 24, 2024 Calcium, Total 8.2 mg/dL 8.7 - 10.4 mg/dL Low Apr emb2023 Corrected Ca x P Product 53 0 - 54 - May 21, 2024 Magnesium 1.9 mg/dL 1.6 - 2.6 mg/dL - May Phosphorus 6.0 mg/dL 2.6 - 4.5 mg/dL High May Ca x P Product 54 0 - 54 - May Calcium, Total 9.0 mg/dL 8.7 - 10.4 mg/dL - 2023 Alkaline Phosphatase 212 U/L 40 - 129 U/L High Oc tob2023 PTH-Intact, Plasma 2365 pg/mL 16 - 80 pg/mL High May get2023 PTH-Intact, Plasma 546 pg/mL 16 - 80 pg/mL High Jun Phosphorus 11.0 mg/dL 2.6 - 4.5 mg/dL High July 01, 2024 Ca x P Product 86 0 - 54 High June 142023 Calcium, Total 7.8 mg/dL 8.7 - 10.4 mg/dL Low 2023 Corrected Ca x P Product 84 0 - 54 High July 01 4 Phosphorus 5.0 mg/dL 2.6 - 4.5 mg/dL High July 09, 2024 Liver/Nutrition Result Type Result Value Relevant Referen ce Range Interpretation Date LDH 296 U/L 118 - 273 U/L High February 25 Albumin (BCG) 4.1 g/dL 3.5 - 5.2 g/dL - 2023 Glucose 253 mg/dL 70 - 100 mg/dL High April 24, 2024 A/G Ratio 1.6 1.0 - 2.0 - April 24, 2024 Globulin (Calc) 2.5 g/dL 2.0 - 4.0 g/dL - 2023 Total Protein 6.6 g/dL 6.0 - 8.5 g/dL - 2023 Glucose 254 mg/dL 70 - 100 mg/dL High May Globulin (Calc) 2.4 g/dL 2.0 - 4.0 g/dL - 2023 A/G Ratio 1.8 1.0 - 2.0 - May 21 Total Protein 6.6 g/dL 6.0 - 8.5 g/dL - May 21, 2024 Albumin (BCG) 4.2 g/dL 3.5 - 5.2 g/dL - May 21, 2024 LDH 380 U/L 118 - 273 U/L High May 21, 2024 SGPT (ALT) < 7 U/L 7 - 52 U/L Low May 21 GGT 43 U/L 8 - 61 U/L - May 21 SGOT (AST) 13 U/L 13 - 39 U/L - May 21 Total Protein 6.8 g/dL 6.0 - 8.5 g/dL - 2023 Albumin (BCG) 4.3 g/dL 3.5 - 5.2 g/dL - 2023 A/G Ratio 1.7 1.0 - 2.0 - July 01 Globulin (Calc) 2.5 g/dL 2.0 - 4.0 g/dL - 2023 Glucose 135 mg/dL 70 - 100 mg/dL High June 142023 Immunochemistry Result Type Result Value Relevant Reference Range Interpre tation Date HCV s/co ratio < 0.02 0.00 - 0.79 - August 142023 HCV s/co ratio < 0.02 0.00 - 0.79 - February 26, 2024 Infectious Diseases Result Type Result Value Relevant Referen ce Range Interpretation Date Hep B Surface Ab (anti-HBs) 245 mIU/mL No Reference Range Provided - August 28, 2023 HCV Ab (anti-HCV) Nonreactive No Reference R rosa Provided - February 26, 2024 Hep B Surface Ag (HBsAg) Negative No Reference Range Provided - July 01, 2024 DIALYSIS PRESCRIPTION NxStage Hemodialysis Data Element Value Order Date/Time July 04, 2024 Frequency 4X Week Treatment Days HeleneueThuFri Dialyzer/Cartridge CAR 172 Therapy Fluid (dialysate) 1.0 K 40 Lacta te Estimated Treatment Time 180 min Volume per Treatment (Liters) 50 L Dialysate Flow Rate 17 L/hr Maximum Flow Fraction (%) 100% Maximum Ultrafiltration Rate 1 ml/Kg/hr Blood Flow Rate (mL/min) 450 mL/min Estimated Dry Weight 133 kg Dialysis Access Hemodialysis-CV Cath eter-Tunneled, Chest, Right Jugular Access Placed on April 18, 2024 TRANSPLANT WAITLIST STATUS No Information on Transplant Waitlist Status ADVANCE DIRECTIVES Directive Description Ordered By Effective Date Resuscitation status Full Code Man Sky Nov 28, 2023 DIALYSIS TREATMENTS NxStage-HHD Date Pre-Treatment Vitals Post-Treatment Vitals Durat ion(hr) Exchanges BFR(mL/min) Cartridge Type Dialysate Dialysis Access Meds-entered by patient Novem 2023 Weight 137 kg Weight 135.4 kg 2:59 1 of 7 430 CAR-172-C 1K 40 Lactate Blood Pressure-sitting 183/111 mmHg Blood Pressure-sitting 1 68/123 mmHg 2 of 7 430 Blood Pressure-standing 180/110 mmHg Blood Pressure-standi ng 166/120 mmHg 3 of 7 430 Heart Rate 90 beats per minute Heart Rate 98 beats per minute 4 of 7 430 Temperature 98.2 deg. F Temperature 98.6 deg. F 5 of 7 43 0 - - - - 6 of 7 430 - - - - 7 of 7 430 July 08, 2024 Weight 135.2 kg Weight 133 kg 2:57 1 of 11 200 CAR-172-C 1K 40 Lactate Hemodialysis-CV Catheter-Tunneled, Chest, Right Jugular Access Placed on April 18, 2024 Heparin 4000 Access Blood Pressure-sitting 178/118 mmHg Blood Pressure-sitting 1 41/87 mmHg 2 of 11 - Blood Pressure-standing 176/117 mmHg Blood Pressure-standi ng 139/86 mmHg 3 of 11 450 Heart Rate 86 beats per minute Heart Rate 89 beats per minute 4 of 11 440 Temperature 98.4 deg. F Temperature 98.6 deg. F 5 of 11 43 0 - - - - 6 of 11 430 - - - - 7 of 11 430 - - - - 8 of 11 430 - - - - 9 of 11 430 - - - - 10 of 11 430 - - - - 11 of 11 430 July 09, 2024 Weight 134.4 kg Weight 132.6 kg 2:57 1 of 10 200 CAR-172-C 1K 40 Lactate Hemodialysis-CV Catheter-Tunneled, Chest, Right Jugular Access Placed on April 18, 2024 Heparin 4000 Access Venmor [address] Cartridge Blood Pressure-sitting 145/96 mmHg Blood Pressure-sitting 16 1/113 mmHg 2 of 10 - Blood Pressure-standing 143/95 mmHg Blood Pressure-standin g 159/111 mmHg 3 of 10 430 Heart Rate 100 beats per minute Heart Rate 99 beats per minute 4 of 10 430 Temperature 98.3 deg. F Temperature 98.4 deg. F 5 of 10 43 0 - - - - 6 of 10 430 - - - - 7 of 10 430 - - - - 8 of 10 430 - - - - 9 of 10 428 - - - - 10 of 10 -
--- OUTSIDE RECORDS SUMMARY | 2024-07-12 13:03 | XMS_ITS ---
Author Name Man Sky Address [address] [place] [address] Phone [phone] Organization [facility], NA DOCUMENT DISCLAIMER Multiple document versions may exist, please be sure you review the latest version. The information in the [facility] Progress Note Document represents a providers documented clinical note containing certain health and medical information. It may not contain the complete medical history for the patient and should be independently verified. The represented time in the document is Eastern Time PROVIDER ROUNDING NOTE HHD PROVIDER?ROUNDING?NOTE?D Clinic:?[id number]?HOME?PROGRAM Visit?date:?11/28/2022?00:00?Modality/setting:?HHD Aiden?Eh?-?Chart?#:?[id number] Method?of?Interaction:?Via?Telephone Reason:?Other Comments:?bad?storm Date?of?Interaction:?11/23/2023 ?-?Patient?is?stable ?-?Medications?and?labs?reviewed. 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 bp?drops?with?dialysis?he?may?need?midodrine HHD?Prescription More?Frequent?Dialysis?-?Based?on?provider's?assessment?of&# 160;patient?condition: ?-?Continue?with?greater?than?3x?more?frequent?dialysis?prescription Note?clinical?response?to?more?frequent?dialysis?or?any&#160 ;changes?to?patient's?condition?that?are?relevant: ?for?volume ??10/12/2023?Home?HD?using?NxStage?with?PureFlow?4X&#16 0;Week,?MonTueThuFri,?Estimated Treatment?Time:?3?hrs?0?min,?CAR?172,?Therapy?Fluid&#16 0;1.0?K?40?Lactate,?Volume?per Tx?50?(liters),?Max?FF:?100?%,?BFR:?450,?DFR:?17 L/hr,?Ordered?Max?UFR:?1 mL/Kg/hr,?EDW?135?(kg),?Access:?[facility]-Standard,?Clinic?6531- Home?Machine?HHD?NxStage?System?One?S ?11/14/2019 Order?Diagnosis ICD10?Code?Diagnosis?Description ? 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 Urea?Clearance,?Urine?wstdKt/V?0.82?11/19/2023?-?2.0?11/19/23?0.78?11/12/2023?-?1.9?11/12/23?0.68?10/22/2023?-?1.8?10/22/23?? ?-?Adequacy?parameters?reviewed Adequacy ?-?Adequacy?target?met good Anemia ?HGB?g/dL? Transferrin?Sat.?(Calc)?%?Ferritin?ng/mL&#160 ;?11.6?11/19/23?40?11/19/23?419 ?0407/24?? ?10.3?11/12/23?23?10/22/23?420 ?10/22/23?? ?11.8?10/22/23?36?09/19/23?494 ?09/19/23?? ?-?Anemia?reviewed ?-?Anemia?targets?met mircera?on?hold Bone?and?Mineral?Metabolism ??Calcium,?Total?mg/dL?? Calcium,?Corrected?mg/dL ?&#1 60;??Phosphorous?mg/dL??? PTH-Intact,?Plasma?pg/mL ??9.1?11/19/23? 8.9?11/19/23?4.3&#16 0;?11/19/23?590?11/19/23?8.8?10/22/23? 8.6?10/22/23?8.4&#16 0;?10/22/23?1859?10/22/23?8.3?09/19/23? 8.1?09/19/23?6.2&#16 0;?09/19/23?1501?09/19/23?Vitamin?D?25?Hydroxy?ng/mL?Calcimimetics?78.8?08/28/23?-?97.2?11/28/22?-?53.8?03/20/20?-? Calcium:?At?target Phosphorus:??At?target PTH:?At?target ?-?Bone?and?mineral?metabolism?parameters?reviewed he?is?tolerating?xphozah?will?increase?dose,?he?is?on&# 160;cinacalcet?for?hyperpara Nutrition ?Albumin?g/dL? eNPCR?g/kg/day?Bicarbonate?mEq/L??? Potassium,?Serum?mEq/L ?4.3?11/19/23?-?19?11/19/23?? ?6.5& #160;?11/19/23?? ?4.2?10/22/23?-?23?10/22/23?? ?7.5& #160;?11/12/23?? ?4.3?09/19/23?-?17?09/19/23?? ?6.4& #160;?10/22/23?? ?-?Nutrition?reviewed he?was?not?taking?lokelma?or?nahco3?as?prescribed Home?Medications Home?Medication?Reviewed:?Dipti?Hackett?11/14/2023?13:53:54?EDT ?Home?Medications?(updated:?11/14/2023?13:54:16) Patient:?Stauffer, Aiden ??Shilpi?Low?Dose?Aspirin?(aspirin) 81?mg,?oral,?1?tablet?once?a?day ??carbamazepine?(carbamazepine) 200?mg,?oral,?1?tablet?every?night ??carvedilol?(carvedilol) 25?mg,?oral,?2?tablet?twice?a?day ??CellCept?(mycophenolate?mofetil) 250?mg,?oral,?1?capsule?twice?a?day ??cholecalciferol?(vitamin?D3)?(cholecalciferol?(vitamin?d3)) 625?mcg?(25,000?unit),?oral,?2?capsule?three?times?a week [Ujxiujg-Kdzkoygl-Mbahhmdb] ??cinacalcet?(cinacalcet) 60?mg,?oral,?2?tablet?once?a?day [take?with?the?evening?meal] ??clonazepam?(clonazepam) 0.5?mg,?oral,?1?tablet?once?a?day ??cyclosporine?(cyclosporine) 25?mg,?oral,?4?capsule?every?morning ??cyclosporine?(cyclosporine) 25?mg,?oral,?5?capsule?every?night?at?bedtime ??doxazosin?(doxazosin) 8?mg,?oral,?1?tablet?every?night ??entecavir?(entecavir) 0.5?mg,?oral,?1?tablet?once?a?week [Takes?on?Monday] ??ergocalciferol?(vitamin?D2)?(ergocalciferol?(vitamin?d2)) 1,250?mcg?(50,000?unit),?oral,?1?capsule?as?directed [Monday,?Monday,?Monday] ??folic?acid?(folic?acid) 1?mg,?oral,?1?tablet?once?a?day ??gabapentin?(gabapentin) 300?mg,?oral,?1?capsule?once?a?day ??lactulose?(lactulose) 10?gram/15?mL,?oral,?30?ml?once?a?day [for?constipation]... There?are?additional?active?home?medications?for?this?patien t.?Please?view?in?Clinical?Summary Last?Hospitalization ?Admission?Date:?11/04/2023 ?Discharge?Date:?11/07/2023 ?Discharge?Diagnosis: ?-?N18.6?-?End?stage?renal?disease ?-?R22.9?-?Localized?swelling,?mass?and?lump,?unspecified Access?and?Evaluation Active/Maturing?Accesses ?Type?Position/Location?Status?Access?ID?AVFistula-Standard?Forearm-Left?Temporarily? Unusable?[id number]?CVCatheter-Tunneled?Chest?Active?(In?Use)?[id number]?-?-?&# 160;?-? -? Referral?made?for?access?revision/intervention avf?ligated,?he?is?getting?an?appt?with?u?susan?for new?avf Infection Most?Recent?In-center?Antibiotic?Order 05/15/2020?Vancomycin?HCl?750?mg?IV?Every?Treatment?x?1 2?Times,?Clinic?71-?Entered?By?ACSmit Exam ?-?Vital?signs?reviewed Edema ?-?EXT?-?No?edema per?pt?self?exam Transplant?Status Topic Exploring?Alternative?Treatment?Options: Kidney?Transplant ?Person?Taught: ?-?Patient ?Additional?Education?Required:?No ?Date?Given:?11/14/2019 Interest?and?Eligibility?(If?changes?are?made,?Please?notify?SW?via?alert?below) ?Date?of?discussion?from?transplant?assessment:?03/10/2023 ?Patient?already?on?transplant?list??No ?Patient?interested?in?transplantation??Yes ?Has?patient's?physician?identified?one?or?more?exclusions per?the ?Contraindication?list?provided?by?the?transplant?center? ??No ?Patient?referred?for?transplantation??Yes,?per?physician?order ?Transplant?Comments: ??Pt?stated?already?working?with?[facility],?working?on?son?getting?evaluated?for?live donor. ??03/10/23?Pt?is?working?with?[facility]?on?transplant,?has?3?familly?members?interested in?being?living?donor.?continue?to?monitor?and?assist?ongoing. ?Transplant?center/state:?[facility] Tobacco?Cessation ??Tobacco?use:?Never?used Man?Jose Daniel,BRANDON END OF DOCUMENT
--- OUTSIDE RECORDS SUMMARY | 2024-07-12 13:03 | XMS_ITS | Encounter Summary ---
Author Organization [facility] Address [address] [id number] Care Team Providers Care Auto Seat Cover Installer Name Role Phone Edgar Fournier MD Primary Care Provider [phone] Enrique Griffith MD Unavailable [phone] Encounter Details Date Type Department Care Team (Late st Contact Info) Description 05/27/2024 Telephone [facility]plant Center [address] [facility] [address] [place] [phone] Zion Virgen, RN HOSPITAL KIDNEY [id number] [address] [place] [address] Social History Tobacco Use Types Packs/Day Years [...] the past 12 months has th e [employer], gas, oil, or water company threatened to [...] Telephone Encounter - Zion Virgen RN - 05/27/2024 12:22 PM EDT Received call from patient, patient states that he has completed testing at [place] and expects robert listed active after next appointment with them. However patient expressed concern over transportation and costs after transplant if/when he is transplanted at [place] if he is unable to transfer post care to or here at . Patient remains interested in robotic transplant but would like to know if coordinator has heard anything further on utilizing this technique. Coordinator stated thatthe last he'd heard it would be some time in 2024 at the earliest that would start utilizing this technique. Patient verbalized understanding and states he is just trying to gather as much informat ion as he can to help him make decisions, denies further questions at present. documented in this encounter Plan [...] documented as of this encounter Care Teams Auto Seat Cover Installer Relationship Specialty Start Date End Date Edgar Fournier MD [address] [place] [address] PCP - General 12/25/20 Enrique Griffith MD [address] [place] [address] Referring Physician Nephrology 01/08/21 documented as of this encounter
--- OUTSIDE RECORDS SUMMARY | 2024-07-12 13:03 | XMS_ITS | Encounter Summary ---
Author Organization [facility] Address [address] [id number] Care Team Providers Care Director Of Income Tax Name Role Phone Edgar Fournier MD Primary Care Provider [phone] Enrique Griffith MD Unavailable [phone] Encounter Details Date Type Department Care Team (Late st Contact Info) Description 11/03/2023 Telephone [facility] Transplant Center [address] [facility] [address] [place] [phone] Zion Virgen, RN HOSPITAL KIDNEY [id number] [address] [id number] Social History Tobacco Use Types Packs/Day Years [...] slept in a mcfp (including now)? No 10/09/2023 Housing Stability Vital [...] the past 12 months has th e [employer], gas, oil, or water company threatened to [...] Telephone Encounter - Zion Virgen RN - 11/03/2023 9:57 AM EDT Received call from and had extensive conversation with patient, patient recently left OSH after having poor experience with hospital. Patient states that he was given BP medication while being hypotensive, patient states that he nearly , coordinator apologized for patient having gone through this. Patient states that they tried to do the same thing again and that after that he left, patient st ates he currently has a temporary cath for dialysis and wants to know about getting something permanent placed. Recommended that patient speak with his instrument repair supervisor about this and provided fax numberfor surgical team via patient message. Patient denies further needs/questions at present. documented in [...] of this encounter Care Teams Director Of Income Tax Relationship Specialty Start Date End Date Edgar Fournier MD [address] [place] [address] PCP - General 12/25/20 Enrique Griffith MD [address] [place] [address] Referring Physician Nephrology 01/08/21 documented as of this encounter
--- OUTSIDE RECORDS SUMMARY | 2024-07-12 13:03 | XMS_ITS | Encounter Summary ---
Author Organization [facility] Address [address] [place] [address] Care Team Providers Care Manufacture Specialist Name Role Phone Edgar Fournier MD Primary Care Provider [phone] Enrique Griffith MD Unavailable [phone] Encounter Details Date Type Department Care Team (Latest Contact Info) Description 10/09/2023 Travel Social History Tobacco Use Types Packs/Day [...] slept in a fdc (including now)? No 10/09/2023 Housing Stability Vital [...] the past 12 months has th e [facility], gas, oil, or water company threatened to [...] documented as of this encounter Care Teams Manufacture Specialist Relationship Specialty Start Date End Date Edgar Fournier MD [address] [place] [address] PCP - General 12/25/20 Enrique Griffith MD [address] [place] [address] Referring Physician Nephrology 01/08/21 documented as of this encounter
--- OUTSIDE RECORDS SUMMARY | 2024-07-12 13:03 | XMS_ITS | Encounter Summary ---
Author Organization [facility] Address [address] [place] [address] Care Team Providers Care Pharmacy Tech Name Role Phone Edgar Fournier MD Primary Care Provider [phone] Enrique Griffith MD Unavailable [phone] Encounter Details Date Type Department Care Team (Late st Contact Info) Description 10/27/2023 Orders Only External Location [address] [place] [address] Provider, External Social History Tobacco Use Types Packs/Day Years [...] place to sleep or slept in a fci (including now)? No 10/09/2023 Housing Stability Vital [...] Name Priority Date/Time Associated Diagnosis Comments CT [facility] OUTSIDE IMAGES 10/27/2023 5:56 PM EDT documented in this encounter Results * CT MSK OUTSIDE IMAGES (10/27/2023 5:56 PM EDT) Anatomical Region Laterality Modality Computed Tomogra phy 10/27/2023 5:56 PM EDT us External Provider IMG CT PROCEDURES Final Result documented in this encounter Visit Diagnoses Not on filedocumented in this encounter Additional Health Concerns Assessment Noted Time A fall risk assessment has been complete d for the patient 07/18/2023 8:37 AM EST A Body Mass Index follow-up plan has been documented for the patient 10/16/2023 8:29 AM EST documented as of this encounter Care Teams Pharmacy Tech Relationship Specialty Start Date End Date Edgar Fournier MD [address] [place] [address] PCP - General 12/25/20 Enrique Griffith MD [address] [place] [address] Referring Physician Nephrology 01/08/21 documented as of this encounter
--- OUTSIDE RECORDS SUMMARY | 2024-07-12 13:03 | XMS_ITS ---
Author Name Man Sky Address [address] [place] [address] Phone [phone] Organization [facility], NA DOCUMENT DISCLAIMER Multiple document versions may exist, please be sure you review the latest version. The information in the [facility] Progress Note Document represents a providers documented clinical note containing certain health and medical information. It may not contain the complete medical history for the patient and should be independently verified. The represented time in the document is Eastern Time PROVIDER ROUNDING NOTE HHD PROVIDER?ROUNDING?NOTE?D Clinic:?[id number]?HOME?PROGRAM Visit?date:?11/28/2022?00:00?Modality/setting:?HHD Aiden?Eh?-?Chart?#:?[id number] Method?of?Interaction:?Face?to?face Date?of?Interaction:?07/12/2023 Patient?is?stable Medications?and?labs?reviewed. 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 Vitals ?Collected?Date:?06/01/2023 ?Temperature:?98.3 ?Pulse:?91 ?Respirations:?20 ?BP?(Sitting):?154/105 ?BP?(Standing):?Height?(cm):?175 ?Height?Date:?11/28/2022 ?Weight?(kg):?133.4 ?Date:?07/12/2023 ?Temperature:?Pulse:?Respirations:?BP?(Sitting):?BP?(Standing):?Weight?(kg):? HHD?Prescription More?Frequent?Dialysis?-?Based?on?provider's?assessment?of&# 160;patient?condition: ?Continue?with?greater?than?3x?more?frequent?dialysis?prescription Note?clinical?response?to?more?frequent?dialysis?or?any&#160 ;changes?to?patient's?condition?that?are?relevant: ?for?volume ??06/01/2023?Home?HD?using?NxStage?with?PureFlow?4X&#16 0;Week,?Jackelyn,?Estimated?Treatment?Time:?3?hrs?0?min, ?CAR?172,?Therapy?Fluid?1.0?K?40?Lactate,?Volume?p er?Tx?50?(liters),?Max?FF:?100?%,?BFR:?450,?DFR:&# 160;17?L/hr,?Ordered?Max?UFR:?1?mL/Kg/hr,?EDW?134?(kg), ?Access:?AVFistula-Standard,?Clinic?8498- Home?Machine?HHD?NxStage?System?One?S ?11/14/2019 Order?Diagnosis ICD10?Code?Diagnosis?Description ? 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 Urea?Clearance,?Urine?wstdKt/V?0.88?06/14/2023? 2.7?06/14/23?0.69?05/24/2023? 2.0?05/24/23?0.87?05/08/2023? 2.7?05/08/23?? ?-?Adequacy?parameters?reviewed Adequacy ?-?Adequacy?target?met ADEQUACY?TRANSPORT?Comment:?good Anemia ?HGB? Transferrin?Sat.?(Calc) ?Ferritin?g/dL?%?ng/m L?11.4?06/29/23?51?06/29/23?? ?580?05/24/23?? ?12.6?06/14/23?37?06/14/23?? ?799?02/16/23?? ?12.9?05/24/23?51?05/24/23?? ?472?11/28/22?? ?-?Anemia?reviewed ?-?Anemia?targets?met ANEMIA?Comments:?mircera?on?hold Bone?and?Mineral?Metabolism ?Calcium,?Total?Calcium,?Corrected?Phosphorous? &#160 ;?PTH-Intact,?Plasma?mg/dL?mg/dL?mg/dL?pg/mL?9.0?06/14/23?? ?8.8?06/14/23?? ?10.4?&#1 60;?06/29/23?? ?1811?06/29/23? ?8.2?05/24/23?? ?8.0?05/24/23?? ?7.2?&#16 0;??06/14/23?? ?1415?06/14/23 ? ?9.1?05/08/23?? ?8.8?05/08/23?? ?6.7?&#16 0;??05/24/23?? ?597?05/24/23?Vitamin?D?25?Hydroxy?Calcimimetics?ng/mL?97.2?11/28/22?53.8?03/20/20?49.2?02/17/20? Calcium:?At?target Phosphorus:??Above?target PTH:?Above?target BONE?AND?MINERAL?METABOLISM?Comments:?diarrhea?on?calcitriol,&#16 0;velphoro,?sevelamer,?and?auryxia.??constipation?on?lanthanum.&# 160;?taking?cinacalcet?90,?tabatha?acetate?4?with?meal?and& #160;some?velphoro.??became?hypocalcemic.??cinacalcet?held.? ?tabatha?improved?but?po4?and?pth?out?of?control.?&#16 0;go?back?on?cinacalcet?90?and?take?two?tums?at?hs ?stay?on?tabatha?acetate?and?velphoro Nutrition ?Albumin?eNPCR?Bicarbonate?&#1 60;Potassium,?Serum?g/dL?g/kg/day?mEq/L?&#16 0;?mEq/L?4.3?06/14/23?& #160;? ?21?06/14/23?? 5.4?06/14/23?? ?4.2?05/24/23?& #160;? ?21?05/24/23?? 4.8?05/24/23?? ?4.4?05/08/23?& #160;? ?19?05/08/23?? 5.4?05/08/23?? ?-?Nutrition?reviewed NUTRITION?Comments:?good Home?Medications REVIEWED?Comment:?Home?Medication?Reviewed:?Breanne?Jonathon? 023?10:23:10?EDT? ?Home?Medications?(updated:?07/12/2023?13:48:14)??Patient:?Eh,?Aiden ?Shilpi?Low?Dose?Aspirin?(aspirin) ?81?mg,?oral,?1?tablet?once?a?day ?calcium?acetate(phosphat?bind)?(calcium?acetate(phosphat?bind)) ?667?mg,?oral,?4?capsule?three?times?a?day ?[Take?1?w/?snacks] ?carbamazepine?(carbamazepine) ?200?mg,?oral,?1?tablet?every?night ?carvedilol?(carvedilol) ?25?mg,?oral,?2?tablet?twice?a?day ?CellCept?(mycophenolate?mofetil) ?250?mg,?oral,?1?capsule?twice?a?day ?cholecalciferol?(vitamin?D3)?(cholecalciferol?(vitamin?d3)) ?625?mcg?(25,000?unit),?oral,?2?capsule?three?times a?week ?[Cljvcpg-Jjduotco-Cylsnces] ?cinacalcet?(cinacalcet) ?90?mg,?oral,?1?tablet?once?a?day ?[take?with?the?evening?meal] ?cyclosporine?(cyclosporine) ?100?mg,?oral,?1?capsule?twice?a?day ?doxazosin?(doxazosin) ?8?mg,?oral,?1?tablet?every?night ?entecavir?(entecavir) ?0.5?mg,?oral,?1?tablet?once?a?week ?[Takes?on?Monday] ?folic?acid?(folic?acid) ?1?mg,?oral,?1?tablet?once?a?day ?gabapentin?(gabapentin) ?100?mg,?oral,?1?capsule?twice?a?day ?Humulin?70/30?U-100?KwikPen?(insulin?nph?and?regular?human) ?100?unit/mL?(70-30),?subQ,?48?unit?four?times?a?day ?[sliding?scale] ?hydralazine?(hydralazine) ?100?mg,?oral,?1?tablet?twice?a?day ?Lokelma?(sodium?zirconium?cyclosilicate)... There?are?additional?active?home?medications?for?this?patien t.?Please?view?in?Clinical?Summary Access?and?Evaluation Active/Maturing?Accesses ?Type?Position/Location?Status?Access?ID?AVFistula-Standard?Forearm-Left?Activ e?(In?Use)?[id number]? Thrill ?-?Present Difficulty?with?cannulation ?-?No ACCESS?Comments:?pt?underwent?angioplasty?of?avf?at?[facility]&#160 ;now?having?less?pain Infection Most?Recent?In-center?Antibiotic?Order 05/15/2020?Vancomycin?HCl?750?mg?IV?Every?Treatment?x?1 2?Times,?Clinic?71-?Entered?By?ACSmit Exam Vital?signs?reviewed Edema ?-?EXT?-?No?edema EXAM?Comments:?per?pt?self?exam Transplant?Status Topic Exploring?Alternative?Treatment?Options: Kidney?Transplant ?Person?Taught: ?-?Patient ?Additional?Education?Required:?No ?Date?Given:?11/14/2019 Interest?and?Eligibility?(If?changes?are?made,?Please?notify?SW?via?alert?below) ?Date?of?discussion?from?transplant?assessment:?03/10/2023 ?Patient?already?on?transplant?list??No ?Patient?interested?in?transplantation??Yes ?Has?patient's?physician?identified?one?or?more?exclusions per?the ?Contraindication?list?provider?by?the?transplant?center? ??No ?Patient?referred?for?transplantation??Yes,?per?physician?order ?Transplant?Comments: ??Pt?stated?already?working?with?[facility],?working?on?so n?getting?evaluated?for?live?donor. ??03/10/23?Pt?is?working?with?[facility]?on?transplant,?ayon s?3?familly?members?interested?in?being?living?donor.?c ontinue?to?monitor?and?assist?ongoing. ?Transplant?center/state:?[facility] Tobacco?Cessation ??Tobacco?use:?Never?used Man?Jose Daniel,? END OF DOCUMENT
--- OUTSIDE RECORDS SUMMARY | 2024-07-12 13:04 | XMS_ITS | Encounter Summary ---
Author Organization [facility] Address [address] [id number] Care Team Providers Care Jack Spinner Name Role Phone Edgar Fournier MD Primary Care Provider [phone] Enrique Griffith MD Unavailable [phone] Encounter Details Date Type Department Care Team (Late st Contact Info) Description 01/02/2023 Telephone [facility] Transplant Center [address] [facility] [address] [place] [phone] Zion Virgen RN HOSPITAL KIDNEY [id number] [address] [id number] Social History Tobacco Use Types Packs/Day Years Used Date Smoking Tobacco: Never Smokeless Tobacco: Never Alcohol Use Standard Drinks/Week Comments No 0 (1 standard drink = 0.6 oz pure alcohol) Alcoholic Drinks/day: Never Drank Alcohol Sex and Gender Information Value Date Recorded Sex Assigned at Not on file Legal Sex Male 6:10 PM EDT Gender Identity Not on file Sexual Orientation Straight 03/02/2021 10 :04 AM EDT documented as of this encounter Miscellaneous Notes * Telephone Encounter - Zion Virgen RN - 01/02/2023 2:28 PM EDT Called patient informed him that after review, we can use his echo and brine room laborer testing in place ofupcoming testing on 01/05 however, he would have to have these repeated after April. Patient verbalized understanding and would like to do this. Patient also states that he has a dialysis access catheter in his chest wall that he was supposed to have removed today but the clinic he went to this m ninging was unable to remove it due to difficulty. Patient states he is uncertain as to what to do. Coordinator stated that he is uncertain as well but would reach out to access team for advice. Patient verbalized understanding, denies further needs. documented in this encounter Plan of Treatment Not on file documented as of this encounter Visit Diagnoses Not on filedocumented in this encounter Care Teams Jack Spinner Relationship Specialty Start Date End Date Edgar Fournier MD [address] [place] [address] PCP - General 12/25/20 Enrique Griffith MD [address] [place] [phone] Referring Physician Nephrology 01/08/21 documented as of this encounter
--- OUTSIDE RECORDS SUMMARY | 2024-07-12 13:04 | XMS_ITS | Encounter Summary ---
Author Organization [facility] Address [address] [id number] Care Team Providers Care Scada Operator Name Role Phone Edgar Fournier MD Primary Care Provider [phone] Enrique Griffith MD Unavailable [phone] Encounter Details Date Type Department Care Team (Late st Contact Info) Description 01/06/2023 Telephone [facility] [address] [facility] [address] [place] [phone] Zion Virgen RN [id number] [address] [id number] Social History Tobacco Use Types Packs/Day Years [...] Telephone Encounter - Zion Virgen RN - 01/06/2023 11:57 AM EDT Attempted to contact patient regarding missed annual appointment, no answer, left VM documented in this encounter Plan of Treatment Not on file documented as of this encounter Visit Diagnoses Not on filedocumented in this encounter Care Teams Scada Operator Relationship Specialty Start Date End Date Edgar Fournier MD [address] [place] [id number] PCP - General 12/25/20 Enrique Griffith MD [address] [place] [address] Referring Physician Nephrology 01/08/21 documented as of this encounter
--- OUTSIDE RECORDS SUMMARY | 2024-07-12 13:04 | XMS_ITS | Encounter Summary ---
Author Organization [facility] Address [address] [id number] Care Team Providers Care Worm Picker Name Role Phone Edgar Fournier MD Primary Care Provider [phone] Enrique Griffith MD Unavailable [phone] Encounter Details Date Type Department Care Team (Late st Contact Info) Description 07/12/2022 Telephone [facility] [address] [facility] [address] [place] [phone] Zion Virgen RN [facility] [id number] [address] [id number] Social History Tobacco Use Types Packs/Day Years [...] Telephone Encounter - Zion Virgen RN - 07/12/2022 9:42 AM EST Received call from patient asking if he needed to have echo and stress performed today as he has had an echo and cardiac cath performed at recently as part of his evaluation with them. Upon looking in care everywhere noted that patient has indeed had these performed. Informed patient that no he would be required to repeat testing and that we would review these results in committee. Patient verb alized understanding, and denies further needs at present. Message to DL to cancel cardiology appointment, orders discontinued documented in this encounter Plan of Treatment Not on file documented as of this encounter Visit Diagnoses Not on filedocumented in this encounter Care Teams Worm Picker Relationship Specialty Start Date End Date Edgar Fournier MD [address] [place] [address] PCP - General 12/25/20 Enrique Griffith MD [address] [place] [phone] Referring Physician Nephrology 01/08/21 documented as of this encounter
--- OUTSIDE RECORDS SUMMARY | 2024-07-12 13:04 | XMS_ITS | Encounter Summary ---
Author Organization [facility] Address [address] [id number] Care Team Providers Care Senior Inspector Name Role Phone Edgar Fournier MD Primary Care Provider [phone] Enrique Griffith MD Unavailable [phone] Encounter Details Date Type Department Care Team (Late st Contact Info) Description 07/18/2022 Telephone [facility] [address] [facility] [address] [place] [phone] Zion Virgen RN HOSPITAL KIDNEY [id number] [address] [phone] Social History Tobacco Use Types Packs/Day Years [...] Telephone Encounter - Zion Virgen RN - 07/18/2022 1:36 PM EST Attempted to call patient to discuss missed appointments on 07/14 and possibly rescheduling, no answer, left VM documented in this encounter Plan of Treatment Not on file documented as of this encounter Visit Diagnoses Not on filedocumented in this encounter Care Teams Senior Inspector Relationship Specialty Start Date End Date Edgar Fournier MD [address] [place] [address] PCP - General 12/25/20 Enrique Griffith MD [address] [place] [address] Referring Physician Nephrology 01/08/21 documented as of this encounter
--- OUTSIDE RECORDS SUMMARY | 2024-07-12 13:04 | XMS_ITS | Encounter Summary ---
Author Organization [facility] Address [address] [place] [address] Care Team Providers Care Interlacer Name Role Phone Edgar Fournier MD Primary Care Provider [phone] Enrique Griffith MD Unavailable [phone] Encounter Details Date Type Department Care Team (Late st Contact Info) Description 03/30/2022 Telephone [facility] [address] [place] [address] Kylee Herrera, RN GS - Emergency Room Social History Tobacco Use Types Packs/Day Years [...] on filedocumented in this encounter Care Teams Interlacer Relationship Specialty Start Date End Date Edgar Fournier MD [facility] [place] [address] PCP - General 12/25/20 Enrique Griffith MD [address] [place] [address] Referring Physician Nephrology 01/08/21 documented as of this encounter
--- OUTSIDE RECORDS SUMMARY | 2024-07-12 13:04 | XMS_ITS | Encounter Summary ---
Author Organization [facility] Address [address] [id number] Care Team Providers Care Employment Counselor Name Role Phone Edgar Fournier MD Primary Care Provider [phone] Enrique Griffith MD Unavailable [phone] Reason for Visit * Reason Comments Appointment Added panorex Encounter Details Date Type Department Care Team (Late st Contact Info) Description 11/30/2022 Telephone [facility] [address] [facility] [address] [place] [phone] Shaji Roman Transplant [address] [place] [address] Appointment (Added panorex ) Social History Tobacco Use Types Packs/Day [...] encounter Miscellaneous Notes * Telephone Encounter - Shaji Roman - 11/30/2022 1:09 PM EDT Added panorex to 12/08 appts @1pm. 1st call to pt to confirm addition to 12/08 schedule. Lvm with details. Requested a return call. documented in this encounter Plan of Treatment Not on file documented as of this encounter Visit Diagnoses Not on filedocumented in this encounter Care Teams Employment Counselor Relationship Specialty Start Date End Date Edgar Fournier MD [address] [place] [address] PCP - General 12/25/20 Enrique Griffith MD [address] [place] [phone] Referring Physician Nephrology 01/08/21 documented as of this encounter
--- OUTSIDE RECORDS SUMMARY | 2024-07-12 13:04 | XMS_ITS | Encounter Summary ---
Author Organization [facility] Address [address] [id number] Care Team Providers Care Wire Charger Name Role Phone Edgar Fournier MD Primary Care Provider [phone] Enrique Griffith MD Unavailable [phone] Reason for Visit * Reason Comments Appointment Confirmed annual (la b/SW/SG/pano) on: 03/16/23 Encounter Details Date Type Department Care Team (Late st Contact Info) Description 02/13/[address] [facility] [address] [facility] [address] [place] [phone] Eleanor Mont[address] [phone] Appointment (Confirmed annual (lab/SW/SG/pano) on: 03/16/23) Social History Tobacco Use Types Packs/Day Years [...] encounter Miscellaneous Notes * Telephone Encounter - JanEleanor Miguel - 02/13/2023 2:13 PM EDT Called pt, discussed appt's r/s to: Shanon. 03/16/23, reg @1245. Pt confirmed appt date/time, no changes to mailing address. Pt inquired labs, explained will transfer to RN and I will mail paperwork oncelabs discussed. Note to Wilfrido for awareness. documented in this encounter Plan of Treatment Not on file documented as of this encounter Visit Diagnoses Not on filedocumented in this encounter Care Teams Wire Charger Relationship Specialty Start Date End Date Edgar Fournier MD [address] [place] [address] PCP - General 12/25/20 Enrique Griffith MD [address] [place] [phone] Referring Physician Nephrology 01/08/21 documented as of this encounter
--- OUTSIDE RECORDS SUMMARY | 2024-07-12 13:04 | XMS_ITS | Encounter Summary ---
Author Organization [facility] Address [address] [place] [address] Care Team Providers Care Electric Mule Operator Name Role Phone Edgar Fournier MD Primary Care Provider [phone] Enrique Griffith MD Unavailable [phone] Encounter Details Date Type Department Care Team (Latest Contact Info) Description 05/26/2023 Travel Social History Tobacco Use Types Packs/Day Years Used Date Smoking Tobacco: Never Smokeless Tobacco: Never Alcohol Use Standard Drinks/Week Comments Never 0 (1 standard drink = 0.6 oz pure alcohol) Alcoholic Drinks/day: Never Drank Alcohol PHQ-2 Answer Date Recorded Patient Health Questionnaire-2 Score 0 03/16/2023 Sex and Gender Information Value Date Recorded [...] has been complete d for the patient 03/16/2023 2:05 PM EDT A Body Mass Index follow-up plan has been documented for the patient 06/05/2023 12:45 PM EDT documented as of this encounter Care Teams Electric Mule Operator Relationship Specialty Start Date End Date Edgar Fournier MD [address] [place] [address] PCP - General 12/25/20 Enrique Griffith MD [address] [place] [address] Referring Physician Nephrology 01/08/21 documented as of this encounter
--- OUTSIDE RECORDS SUMMARY | 2024-07-12 13:04 | XMS_ITS | Encounter Summary ---
Author Organization [facility] Address [address] [place] [address] Care Team Providers Care Firer Watertender Name Role Phone Edgar Fournier MD Primary Care Provider [phone] Enrique Griffith MD Unavailable [phone] Encounter Details Date Type Department Care Team (Late st Contact Info) Description 03/28/[address] [facility] [address] [place] [address] Eneida Richardson MD [address] [place] [phone] Social History Tobacco Use Types [...] * Telephone Encounter - Aleksandra Giraldo - 03/30/2023 9:30 AM EDT We are booked for 05/09! Patient is ok for any cxs too * Telephone Encounter - Aleksandra Giraldo - 03/28/2023 8:54 AM EDT Note to provider * Telephone Encounter - Aleksandra Giraldo - 03/28/2023 8:01 AM EDT Images from the original note were not included. Shaji Roman Clifford E, RN Ok! Would you mind to get this pt scheduled with Dr. Richardson? Pt does dialysis on MWF. From: Zion Virgen RN Sent: 03/24/2023 I've placed an order for referral to Dr. Richardson, would you care to schedule documented in this encounter Plan of Treatment Not on file documented as of this encounter Visit Diagnoses Not on filedocumented in this encounter Additional Health Concerns Assessment Noted Time A fall risk assessment has been complete d for the patient 03/16/2023 2:05 PM EDT A Body Mass Index follow-up plan has been documented for the patient 03/20/2023 6:25 AM EDT documented as of this encounter Care Teams Firer Watertender Relationship Specialty Start Date End Date Edgar Fournier MD [address] [place] [address] PCP - General 12/25/20 Enrique Griffith MD [address] [place] [address] Referring Physician Nephrology 01/08/21 documented as of this encounter
--- OUTSIDE RECORDS SUMMARY | 2024-07-12 13:04 | XMS_ITS | Encounter Summary ---
Author Organization [facility] Address [address] [place] [address] Care Team Providers Care Scaler Packer Name Role Phone Edgar Fournier MD Primary Care Provider [phone] Enrique Griffith MD Unavailable [phone] Encounter Details Date Type Department Care Team (Late st Contact Info) Description 07/18/2023 8:30 AM EST Office Visit [facility] General & Weight Loss Surgery [address] [place] [address] Chiquita Anderson, SEQUINS STRINGER [address] [address] Obesity, Class III, BMI 40-49.9 (morbid obesity) ([facility]/HCC) (Primary Dx); Sleep apnea, unspecified type; Hypertension, unspecified type; Diabetes mellitus type 2 in obese (CMS/HCC); Multiple joint pain; Gastroesophageal reflux disease, unspecified whether esophagitis present; Fatigue, unspecified type; History of liver transplant (CMS/HCC); ESRD (end stage renal disease) (CMS/HCC) Social History Tobacco Use Types Packs/Day Years Used Date Smoking Tobacco: Never Smokeless Tobacco: Never Tobacco Cessation:Counseling Given: Yes Alcohol Use Standard Drinks/Week Comments Never 0 [...] Sign Reading Time Taken Comments Blood Pressure 187/112 07/18/2023 8:47 AM EST patient states he did not take his BP medicine today . provider notified Pulse 89 07/18/2023 8:47 AM EST Temperature - - Respiratory Rate 16 07/18/2023 8:47 AM EST Oxygen Saturation 98% 07/18/2023 8:4 7 AM EST Inhaled Oxygen Concentration - - Weight 137 kg (302 lb) 07/18/2023 8:36 AM EST Height 172.7 cm (5' 8 ) 07/18/2023 8:47 AM EST Body Mass Index 45.92 07/18/2023 8:36 AM EST documented in this encounter Patient Instructions * Attachments The following attachments cannot be sent through Care Everywhere. * Bariatric Surgery, Deciding on (Eritrean) * Tips to Achieving Your Healthy Lifestyle Changes - VIDEO (Eritrean) documented in this encounter Miscellaneous Notes * Progress Notes - Raquel Kessler RN - 07/18/2023 8:30 AM EST Aiden Stauffer 1975 presented today for consultation for weight loss surgery. Clinic pathway guidelines were reviewed. Patient signed and in agreement with patient commitment to program standards. Patient was educated on the lifestyle medicine evaluation checklist and process for being eligible to submit for surgery. All information was provided in Bariatric Handbook, General & Weight Loss Surgery Clinic [facility], Your Ultimate Guide for Weight Loss Surgery. * Progress Notes - Chiquita Anderson APRN - 07/18/2023 8:30 AM EST Reason for Visit Establish care HPI History as per patient report is for long standing struggle with morbid obesity and related co-morbidities as indicated. Dietary history per previous documentation. Patient is seeking medical evaluation for WLS. Patient is being seen today in clinic. 48 y/o male presents to establish care. He is interested in gastric sleeve surgery. He has a prior medical hx: SAL cirrhosis with liver transplant in 2018, HTN, elevated cholesterol, DMII- on insulin, sleep apnea- does not use CPAP, GERD, joint pain, fatigue, and anxiety. He takes Pantoprazole daily and his reflux is well controlled. He denies dysphagia. He denies abdominal pain. He has occasional nausea and vomiting that he relates to at home hemodialysis (Monday/Monday/, Monday). He denies fevers or chills. He denies lower extremity edema. Last EGD: 05/2022. He takes a baby aspirin daily. Prior abdominal sx: open liver transplant and cholecystectomy. Tobacco: none, never Alcohol: none Recreational drugs: none Caffeine: 1-2 per day Current Weight: 137 kg (302 lb) Height: 1.727 m (5' 8 ) BMI: 45.92 kg/m?? Highest Weight: 302 Lowest Weight: 245 Greatest Weight Loss Achieved in a Single Diet Attempt: 20-30 Unsupervised Diet Attempts: Calorie Counting and Low Carbohydrate Supervised Diet Attempts: Gustavo Past Medical History: Diagnosis Date Allergic 02/23/2020 Anemia Anxiety 2021 Arthritis Chronic kidney disease Conversions - Other Anemia Conversions - Other Benign Prostatic Hypertrophy Conversions - Other Cirrhosis Conversions - Other Diabetes Mellitus Diabetes mellitus type 2 Fatty (change of) liver, not elsewhere classified 10/25/2012 GERD (gastroesophageal reflux disease) Hematochezia Hypertension 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 TOLERATED ENVARSUS BETTER THAN PROGRAF. Codeine Anxiety Current Outpatient Medications Medication Instructions ALPRAZolam (XANAX) 0.5 mg, Oral, As needed aspirin 81 mg, Oral, Daily Auryxia 1 GM 210 MG(Fe) tablet No dose, route, or frequency recorded. calcitriol (Rocaltrol) 0.25 MCG capsule Oral, Daily Calcium Acetate 667 MG tablet 4 tablets, Oral, 3 times daily with meals carBAMazepine (TEGRETOL) 200 mg, 2 times daily carvedilol (Coreg) 25 MG tablet 2 tablets, Oral, 2 times daily cinacalcet (Sensipar) 90 MG tablet TAKE 1 TABLET BY MOUTH ONCE A DAY DIRECTED WITH THE EVENING MEAL Continuous Blood Gluc Carriage Operator (Dexcom G7 Carriage Operator) device USE DIRECTED by Continuous Blood Gluc Sensor (Dexcom G7 Sensor) misc USE DIRECTED CHANGE every 10 DAYS cycloSPORINE modified (GENGRAF) 100 mg, Oral, 2 times daily doxazosin (CARDURA) 8 mg, Oral, Nightly entecavir (BARACLUDE) 0.5 mg, Oral, Weekly, Take every . ergocalciferol (VITAMIN D-2) 50,000 Units, Oral, 3 times weekly fluticasone (Flonase) 50 MCG/ACT nasal spray Sharon 2 spray nasALLY once a day as directed folic acid (Folvite) 1 MG tablet 1 tablet, Oral, ZZ Daily RT folic acid (FOLVITE) 1,000 mcg, Oral, Daily gabapentin (NEURONTIN) 400 mg, Oral, Every other day hydrALAZINE (APRESOLINE) 100 mg, Oral, 3 times daily, Twice daily always. Midday dose as needed. insulin NPH, Isophane, (HumuLIN N) 100 UNIT/ML injection vial Inject 1-2 times per day as directed. Lantus SoloStar 100 UNIT/ML injection pen No dose, route, or frequency recorded. lisinopril 40 mg, Daily methocarbamol (Robaxin) 500 MG tablet TAKE ONE TABLET BY MOUTH FOUR TIMES DAILY (BEFORE MEALS AND AT BEDTIME) montelukast (SINGULAIR) 10 mg, Oral, Daily mycophenolate (CELLCEPT) 250 mg, Oral, 2 times daily NIFEdipine XL (Procardia XL) 90 MG 24 hr tablet 1 tablet, Oral, 2 times daily ondansetron ODT (Zofran-ODT) [address] tablet [address] 1 Tablet on the tongue and let dissolve every 8 hours as needed for nausea pantoprazole (PROTONIX) 40 mg, Oral, 2 times daily promethazine (PHENERGAN) 12.5 mg, Oral, Every 8 hours PRN promethazine (PHENERGAN) 25 mg, Oral, Nightly sevelamer carbonate (RENVELA) 1,600 mg, 3 times daily with meals sodium zirconium cyclosilicate (LOKELMA) 10 g, ZZ Daily RT temazepam (RESTORIL) 15 mg, ZZ Daily RT testosterone cypionate (DEPO-TESTOSTERONE) 200 mg, Intramuscular, Every 28 days Vascepa 1 g capsule TAKE 2 Capsule by mouth twice daily Vitamin D3 1.25 MG (52806 UT) capsule take 1 Capsule by mouth 3 times weekly Family History Problem Relation Name Age of Onset Alcohol abuse Sister Nadya Holder Alcohol abuse Father Aiden Stauffer Sr Cancer Father Aiden Stauffer Sr Alcohol abuse Father's Brother Edwar Stauffer Cirrhosis Sister Diabetes Sister Diabetes Mother Social History Tobacco Use Smoking status: Never Smokeless tobacco: Never Substance Use Topics Alcohol use: Never Comment: Alcoholic Drinks/day: Never Drank Alcohol Drug use: Never Comment: Drug use: Drug Use ROS 14 point ROS completed and negative except as noted in the HPI Objective Vitals: 07/18/23 0847 BP: (!) 187/112 Pulse: 89 Resp: 16 SpO2: 98% PHYSICAL EXAM Constitutional: well developed, well nourished, in no acute distress, and obese Eyes: equal, round, and reactive Ears, Nose, Throat: normal atraumatic, no neck masses Respiratory: Normal Effort, Normal Rate Cardiac: Heart regular rate and rhythm Abdomen: Soft, non-tender; no organomegaly or masses. Midline scar Genitourinary: not indicated Musculoskeletal: normal strength, tone, and muscle mass, no deformities Psychiatric: oriented to time, place and person, mood and affect are within normal limits Neurologic: motor intact and no focal deficits Skin: [place], warm, well perfused Assessment/Plan Diagnosis Plan 1. Obesity, Class III, BMI 40-49.9 (morbid obesity) (CMS/HCC) CBC and Differential Vitamin B1, Whole Blood Protime-INR Nicotine and Metabolites, Serum or Plasma, Quantitative Comprehensive Metabolic Panel, Plasma Free T4, Plasma Hemoglobin A1c Iron, Plasma Lipid Profile, Plasma Thyroid Stimulating Hormone, Plasma Vitamin B12, Serum Vitamin D 25 Hydroxy Vitamin E, Serum or Plasma Vitamin K Vitamin A (Retinol), Serum or Plasma Folate, Serum 2. Sleep apnea, unspecified type CBC and Differential Vitamin B1, Whole Blood Protime-INR Nicotine and Metabolites, Serum or Plasma, Quantitative Comprehensive Metabolic Panel, Plasma Free T4, Plasma Hemoglobin A1c Iron, Plasma Lipid Profile, Plasma Thyroid Stimulating Hormone, Plasma Vitamin B12, Serum Vitamin D 25 Hydroxy Vitamin E, Serum or Plasma Vitamin K Vitamin A (Retinol), Serum or Plasma Folate, Serum 3. Hypertension, unspecified type CBC and Differential Vitamin B1, Whole Blood Protime-INR Nicotine and Metabolites, Serum or Plasma, Quantitative Comprehensive Metabolic Panel, Plasma Free T4, Plasma Hemoglobin A1c Iron, Plasma Lipid Profile, Plasma Thyroid Stimulating Hormone, Plasma Vitamin B12, Serum Vitamin D 25 Hydroxy Vitamin E, Serum or Plasma Vitamin K Vitamin A (Retinol), Serum or Plasma Folate, Serum 4. Diabetes mellitus type 2 in obese (CMS/HCC) CBC and Differential Vitamin B1, Whole Blood Protime-INR Nicotine and Metabolites, Serum or Plasma, Quantitative Comprehensive Metabolic Panel, Plasma Free T4, Plasma Hemoglobin A1c Iron, Plasma Lipid Profile, Plasma Thyroid Stimulating Hormone, Plasma Vitamin B12, Serum Vitamin D 25 Hydroxy Vitamin E, Serum or Plasma Vitamin K Vitamin A (Retinol), Serum or Plasma Folate, Serum 5. Multiple joint pain CBC and Differential Vitamin B1, Whole Blood Protime-INR Nicotine and Metabolites, Serum or Plasma, Quantitative Comprehensive Metabolic Panel, Plasma Free T4, Plasma Hemoglobin A1c Iron, Plasma Lipid Profile, Plasma Thyroid Stimulating Hormone, Plasma Vitamin B12, Serum Vitamin D 25 Hydroxy Vitamin E, Serum or Plasma Vitamin K Vitamin A (Retinol), Serum or Plasma Folate, Serum 6. Gastroesophageal reflux disease, unspecified whether esophagitis present CBC and Differential Vitamin B1, Whole Blood Protime-INR Nicotine and Metabolites, Serum or Plasma, Quantitative Comprehensive Metabolic Panel, Plasma Free T4, Plasma Hemoglobin A1c Iron, Plasma Lipid Profile, Plasma Thyroid Stimulating Hormone, Plasma Vitamin B12, Serum Vitamin D 25 Hydroxy Vitamin E, Serum or Plasma Vitamin K Vitamin A (Retinol), Serum or Plasma Folate, Serum 7. Fatigue, unspecified type CBC and Differential Vitamin B1, Whole Blood Protime-INR Nicotine and Metabolites, Serum or Plasma, Quantitative Comprehensive Metabolic Panel, Plasma Free T4, Plasma Hemoglobin A1c Iron, Plasma Lipid Profile, Plasma Thyroid Stimulating Hormone, Plasma Vitamin B12, Serum Vitamin D 25 Hydroxy Vitamin E, Serum or Plasma Vitamin K Vitamin A (Retinol), Serum or Plasma Folate, Serum 8. History of liver transplant (CMS/HCC) CBC and Differential Vitamin B1, Whole Blood Protime-INR Nicotine and Metabolites, Serum or Plasma, Quantitative Comprehensive Metabolic Panel, Plasma Free T4, Plasma Hemoglobin A1c Iron, Plasma Lipid Profile, Plasma Thyroid Stimulating Hormone, Plasma Vitamin B12, Serum Vitamin D 25 Hydroxy Vitamin E, Serum or Plasma Vitamin K Vitamin A (Retinol), Serum or Plasma Folate, Serum 9. ESRD (end stage renal disease) ([facility]) CBC and Differential Vitamin B1, Whole Blood Protime-INR Nicotine and Metabolites, Serum or Plasma, Quantitative Comprehensive Metabolic Panel, Plasma Free T4, Plasma Hemoglobin A1c Iron, Plasma Lipid Profile, Plasma Thyroid Stimulating Hormone, Plasma Vitamin B12, Serum Vitamin D 25 Hydroxy Vitamin E, Serum or Plasma Vitamin K Vitamin A (Retinol), Serum or Plasma Folate, Serum The patient's questionnaire, medical history and surgical history have been reviewed. Patient has tried to manage comorbidities with non-surgical attempts at weight loss and has not been successful. The patient has undergone preoperative education which addresses the risks, benefits, realistic expec tations and the need for long-term follow-up and adherence to behavioral modifications in order to achieve their best possible results. After reviewing these risks and benefits of surgery in great detail, including but not limited to the possibility of leak from staple or suture line, pulmonary embolus, bleeding, infection, need for reoperation, and possibly dying from the operation, the patient understands this and would like to proceed with surgery. He would like to proceed with gastric sleeve surgery. Labs, psych, EGD to be scheduled per orders. Pt to obtain cardiac clearance. Will see dietitian. Wei see him back in 1 month for follow up. Follow up in about 1 month (around 08/18/2023). * Progress Notes - Sheron Pinto - 07/18/2023 8:30 AM EST Aiden Addison Eh, 1975, presents today for consultation for weight loss surgery program. Thepatient decided to not continue with our program, but was given meal planning guides, upon request. Tanita Scale Results: Consult Height: 5 ft 8.0 in Consult Weight: 302.0 lbs. Fat %: 56.6 % Fat Mass: 171.0 lbs. FFM: 131.0 lbs. BMR: 1945 kcal BMI: 45.92 kg/m?? documented in this encounter Plan of Treatment Scheduled Orders Name Type Priority Associated Diagnoses Orde r Schedule CBC and Differential Lab Routine Obesity, Class III, BMI 40-49.9 (morbid obesity) ([facility]) Sleep apnea, unspecified type Hypertension, unspecified type Type 2 diabetes mellitus with obesity ([facility]/HCC) Multiple joint pain Gastroesophageal reflux disease, unspecified whether esophagitis present Fatigue, unspecified type History of liver transplant ([facility]) ESRD (end stage renal disease) ([facility]) Expected: 07/18/2023 (Approximate), Expires: 01/16/2025 Vitamin B1, Whole Blood Lab Routine Obesity, Class III, BMI 40-49.9 (morbid obesity) ([facility]) Sleep apnea, unspecified type Hypertension, unspecified type Type 2 diabetes mellitus with obesity ([facility]) Multiple joint pain Gastroesophageal reflux disease, unspecified whether esophagitis present Fatigue, unspecified type History of liver transplant ([facility]) ESRD (end stage renal disease) ([facility]) Expected: 07/18/2023 (Approximate), Expires: 01/16/2025 Protime-INR Lab Routine Obesity, Class III, BMI 40-49.9 (morbid obesity) ([facility]) Sleep apnea, unspecified type Hypertension, unspecified type Type 2 diabetes mellitus with obesity ([facility]/HCC) Multiple joint pain Gastroesophageal reflux disease, unspecified whether esophagitis present Fatigue, unspecified type History of liver transplant ([facility]) ESRD (end stage renal disease) ([facility]) Expected: 07/18/2023 (Approximate), Expires: 01/16/2025 Nicotine and Metabolites, Serum or Plasma, Quantitative Lab Routine Obesity, Class III, BMI 40-49.9 (morbid obesity) ([facility]) Sleep apnea, unspecified type Hypertension, unspecified type Type 2 diabetes mellitus with obesity ([facility]/HCC) Multiple joint pain Gastroesophageal reflux disease, unspecified whether esophagitis present Fatigue, unspecified type History of liver transplant ([facility]) ESRD (end stage renal disease) ([facility]) Expected: 07/18/2023 (Approximate), Expires: 01/16/2025 Comprehensive Metabolic Panel, Plasma Lab Routine Obesity, Class III, BMI 40-49.9 (morbid obesity) ([facility]) Sleep apnea, unspecified type Hypertension, unspecified type Type 2 diabetes mellitus with obesity ([facility]/HCC) Multiple joint pain Gastroesophageal reflux disease, unspecified whether esophagitis present Fatigue, unspecified type History of liver transplant ([facility]) ESRD (end stage renal disease) ([facility]) Expected: 07/18/2023 (Approximate), Expires: 01/16/2025 Free T4, Plasma Lab Routine Obesity, Class III, BMI 40-49.9 (morbid obesity) ([facility]) Sleep apnea, unspecified type Hypertension, unspecified type Type 2 diabetes mellitus with obesity ([facility]) Multiple joint pain Gastroesophageal reflux disease, unspecified whether esophagitis present Fatigue, unspecified type History of liver transplant ([facility]) ESRD (end stage renal disease) ([facility]) Expected: 07/18/2023 (Approximate), Expires: 01/16/2025 Hemoglobin A1c Lab Routine Obesity, Class III, BMI 40-49.9 (morbid obesity) ([facility]) Sleep apnea, unspecified type Hypertension, unspecified type Type 2 diabetes mellitus with obesity ([facility]) Multiple joint pain Gastroesophageal reflux disease, unspecified whether esophagitis present Fatigue, unspecified type History of liver transplant ([facility]) ESRD (end stage renal disease) ([facility]) Expected: 07/18/2023 (Approximate), Expires: 01/16/2025 Iron, Plasma Lab Routine Obesity, Class III, BMI 40-49.9 (morbid obesity) ([facility]) Sleep apnea, unspecified type Hypertension, unspecified type Type 2 diabetes mellitus with obesity ([facility]) Multiple joint pain Gastroesophageal reflux disease, unspecified whether esophagitis present Fatigue, unspecified type History of liver transplant ([facility]) ESRD (end stage renal disease) ([facility]) Expected: 07/18/2023 (Approximate), Expires: 01/16/2025 Lipid Profile, Plasma Lab Routine Obesity, Class III, BMI 40-49.9 (morbid obesity) ([facility]) Sleep apnea, unspecified type Hypertension, unspecified type Type 2 diabetes mellitus with obesity ([facility]) Multiple joint pain Gastroesophageal reflux disease, unspecified whether esophagitis present Fatigue, unspecified type History of liver transplant ([facility]) ESRD (end stage renal disease) ([facility]) Expected: 07/18/2023 (Approximate), Expires: 01/16/2025 Thyroid Stimulating Hormone, Plasma Lab Routine Obesity, Class III, BMI 40-49.9 (morbid obesity) ([facility]) Sleep apnea, unspecified type Hypertension, unspecified type Type 2 diabetes mellitus with obesity ([facility]) Multiple joint pain Gastroesophageal reflux disease, unspecified whether esophagitis present Fatigue, unspecified type History of liver transplant ([facility]) ESRD (end stage renal disease) ([facility]) Expected: 07/18/2023 (Approximate), Expires: 01/16/2025 Vitamin B12, Serum Lab Routine Obesity, Class III, BMI 40-49.9 (morbid obesity) ([facility]) Sleep apnea, unspecified type Hypertension, unspecified type Type 2 diabetes mellitus with obesity ([facility]) Multiple joint pain Gastroesophageal reflux disease, unspecified whether esophagitis present Fatigue, unspecified type History of liver transplant ([facility]) ESRD (end stage renal disease) ([facility]) Expected: 07/18/2023 (Approximate), Expires: 01/16/2025 Vitamin D 25 Hydroxy Lab Routine Obesity, Class III, BMI 40-49.9 (morbid obesity) ([facility]) Sleep apnea, unspecified type Hypertension, unspecified type Type 2 diabetes mellitus with obesity ([facility]) Multiple joint pain Gastroesophageal reflux disease, unspecified whether esophagitis present Fatigue, unspecified type History of liver transplant ([facility]) ESRD (end stage renal disease) ([facility]) Expected: 07/18/2023 (Approximate), Expires: 01/16/2025 documented as of this encounter Visit Diagnoses Diagnosis Obesity, Class III, BMI 40-49.9 (morbid obesity) ([facility])- Primary Sleep apnea, unspecified type Hypertension, unspecified type Diabetes mellitus type 2 in obese Type II or unspecified type diabetes mellitus without mention of complication, not stated as uncontrolled Multiple joint pain Pain in joint, multiple sites Gastroesophageal reflux disease, unspecified whether esophagitis present Fatigue, unspecified type History of liver transplant ([facility]) Liver replaced by transplant ESRD (end stage renal disease) ([facility]) End stage renal disease documented in this encounter Additional Health Concerns Assessment Noted Time A fall risk assessment has been complete d for the patient 07/18/2023 8:37 AM EST A Body Mass Index follow-up plan has been documented for the patient 07/18/2023 9:42 AM EST documented as of this encounter Care Teams Scaler Packer Relationship Specialty Start Date End Date Edgar Fournier MD [address] [place] [address] PCP - General 12/25/20 Enrique Griffith MD [address] [place] [phone] Referring Physician Nephrology 01/08/21 documented as of this encounter
--- OUTSIDE RECORDS SUMMARY | 2024-07-12 13:04 | XMS_ITS | Encounter Summary ---
Author Organization [facility] Address [address] [id number] Care Team Providers Care Plate Straightener Name Role Phone Edgar Fournier MD Primary Care Provider [phone] Enrique Griffith MD Unavailable [phone] Encounter Details Date Type Department Care Team (Late st Contact Info) Description 01/16/2023 Telephone [facility] [address] [facility] [address] [place] [phone] Zion Virgen RN HOSPITAL KIDNEY [id number] [address] [phone] Social History Tobacco Use Types Packs/Day Years [...] Telephone Encounter - Zion Virgen RN - 01/16/2023 1:38 PM EDT Called patient asked after missed annual appointment. Patient states he was hospitalized at [facility] due to GI issues(nausea, severe pain). Patient states that he was told he has a clenched bowel. States that he goes to see GI physician on 01/18 about this. Informed patient that coordinator would request records from [facility] and would await results of 01/18 GI visit prior to r/s annual. Patient amenable to this. Records requested from [facility] documented in this encounter Plan of Treatment Not on file documented as of this encounter Visit Diagnoses Not on filedocumented in this encounter Care Teams Plate Straightener Relationship Specialty Start Date End Date Edgar Fournier MD [address] [place] [address] PCP - General 12/25/20 Enrique Griffith MD [address] [place] [phone] Referring Physician Nephrology 01/08/21 documented as of this encounter"
--- OUTSIDE RECORDS SUMMARY | 2024-07-12 13:04 | XMS_ITS | Encounter Summary ---
Author Organization [facility] Address [address] [place] [address] Care Team Providers Care Nutrition Services Worker Name Role Phone Edgar Fournier MD Primary Care Provider [phone] Enrique Griffith MD Unavailable [phone] Encounter Details Date Type Department Care Team (Latest Contact Info) Description 03/13/2023 Travel Social History Tobacco Use Types Packs/Day [...] on filedocumented in this encounter Care Teams Nutrition Services Worker Relationship Specialty Start Date End Date Edgar Fournier MD [facility] [place] [address] PCP - General 12/25/20 Enrique Griffith MD [address] [place] [place] [address] Referring Physician Nephrology 01/08/21 documented as of this encounter
--- OUTSIDE RECORDS SUMMARY | 2024-07-12 13:04 | XMS_ITS | Encounter Summary ---
Author Organization [facility] Address [address] [place] [address] Care Team Providers Care Healthcare Associate Name Role Phone Edgar Fournier MD Primary Care Provider [phone] Enrique Griffith MD Unavailable [phone] Encounter Details Date Type Department Care Team (Late st Contact Info) Description 05/17/2022 Telephone [facility] [address] [facility] [address] [place] [phone] Armani Dawson Social History Tobacco Use Types Packs/Day Years [...] encounter Miscellaneous Notes * Telephone Encounter - Armani Dawson - 05/17/2022 10:49 AM EDT Quarterly dialysis request report faxed to patient's reported dialysis center. documented in this encounter Plan of Treatment Not on file documented as of this encounter Visit Diagnoses Not on filedocumented in this encounter Care Teams Healthcare Associate Relationship Specialty Start Date End Date Edgar Fournier MD [address] [place] [address] PCP - General 12/25/20 Enrique Griffith MD [address] [place] [phone] Referring Physician Nephrology 01/08/21 documented as of this encounter
--- OUTSIDE RECORDS SUMMARY | 2024-07-12 13:04 | XMS_ITS | Encounter Summary ---
Author Organization [facility] Address [address] [id number] Care Team Providers Care Wet Pour Mixer Name Role Phone Edgar Fournier MD Primary Care Provider [phone] Enrique Griffith MD Unavailable [phone] Encounter Details Date Type Department Care Team (Late st Contact Info) Description 05/12/[address] [facility] Transplant Center [address] [facility] [address] [place] [phone] Zion Virgen RN HOSPITAL KIDNEY [id number] [address] [phone] Social History Tobacco Use Types Packs/Day Years [...] Telephone Encounter - Zion Virgen RN - 05/12/2023 3:21 PM EDT Received call from patient stating he had called bariatrics who told him he had to have a referral.Coordinator callled bariatrics per, clinic patient doesn't require referral for the initial consultbut depending upon patients insurance may require referral afterwards. Coordinator relayed this to patient who will call clinic back to set up initial consult. documented in this encounter Plan of Treatment Not on file documented as of this encounter Visit Diagnoses Not on filedocumented in this encounter Additional Health Concerns Assessment Noted Time A fall risk assessment has been complete d for the patient 03/16/2023 2:05 PM EDT A Body Mass Index follow-up plan has been documented for the patient 05/21/2023 6:14 PM EDT documented as of this encounter Care Teams Wet Pour Mixer Relationship Specialty Start Date End Date Edgar Fournier MD [address] [place] [address] PCP - General 12/25/20 Enrique Griffith MD [address] [place] [phone] Referring Physician Nephrology 01/08/21 documented as of this encounter
--- OUTSIDE RECORDS SUMMARY | 2024-07-12 13:04 | XMS_ITS | Encounter Summary ---
Author Organization [facility] Address [address] [id number] Care Team Providers Care Diesel Maintenance Electrician Name Role Phone Edgar Fournier MD Primary Care Provider [phone] Enrique Griffith MD Unavailable [phone] Reason for Visit * Reason Comments Follow-up Mailed 03/16/23 annual paperwork Encounter Details Date Type Department Care Team (Late st Contact Info) Description 02/14/2023 Telephone [facility] [address] [facility] [address] [place] [phone] Eleanor Montoya [facility] [address] [phone] Follow-up (Mailed 03/16/23 annual paperwork) Social History Tobacco Use Types Packs/Day Years [...] encounter Miscellaneous Notes * Telephone Encounter - Eleanor Montoya - 02/14/2023 6:47 PM EDT Mailed 03/16/23 annual appt letter, schedule, annual questionnaire and maps to pt. documented in this encounter Plan of Treatment Not on file documented as of this encounter Visit Diagnoses Not on filedocumented in this encounter Care Teams Diesel Maintenance Electrician Relationship Specialty Start Date End Date Edgar Fournier MD [address] [place] [address] PCP - General 12/25/20 Enrique Griffith MD [address] [place] [phone] Referring Physician Nephrology 01/08/21 documented as of this encounter
--- OUTSIDE RECORDS SUMMARY | 2024-07-12 13:04 | XMS_ITS | Encounter Summary ---
Author Organization [facility] Address [address] [place] [address] Care Team Providers Care Silvering Applicator Name Role Phone Edgar Fournier MD Primary Care Provider [phone] Enrique Griffith MD Unavailable [phone] Reason for Visit * Reason Comments Appointment Confirmed new eval c onsults Encounter Details Date Type Department Care Team (Late st Contact Info) Description 10/26/2022 Telephone [facility] [address] [phone] Shaji Roman Transplant [address] [place] [address] Appointment (Confirmed new eval consults) Social History Tobacco Use Types Packs/Day Years [...] * Telephone Encounter - Shaji Roman - 10/26/2022 5:15 PM EDT Scheduled patient for pre kidney eval on 12/08. Called and spoke with patient and went over all eval appt and appts times. Patient expressed understanding of appts. Verified patients address and mailed eval schedule, and maps. documented in this encounter Plan of Treatment Not on file documented as of this encounter Visit Diagnoses Not on filedocumented in this encounter Care Teams Silvering Applicator Relationship Specialty Start Date End Date Edgar Fournier MD [address] [place] [address] PCP - General 12/25/20 Enrique Griffith MD [address] [place] [phone] Referring Physician Nephrology 01/08/21 documented as of this encounter
--- OUTSIDE RECORDS SUMMARY | 2024-07-12 13:04 | XMS_ITS | Encounter Summary ---
Author Organization [facility] Address [address] [place] [address] Care Team Providers Care Bakery Team Member Name Role Phone Edgar Fournier MD Primary Care Provider [phone] Enrique Griffith MD Unavailable [phone] Encounter Details Date Type Department Care Team (Latest Contact Info) Description 03/16/2023 Travel Social History Tobacco Use Types Packs/Day [...] documented as of this encounter Care Teams Bakery Team Member Relationship Specialty Start Date End Date Edgar Fournier MD [address] [place] [address] PCP - General 12/25/20 Enrique Griffith MD [address] [place] [address] Referring Physician Nephrology 01/08/21 documented as of this encounter
--- OUTSIDE RECORDS SUMMARY | 2024-07-12 13:04 | XMS_ITS | Encounter Summary ---
Author Organization [facility] Address [address] [address] Care Team Providers Care Reconstructive Dentist Name Role Phone Edgar Fournier MD Primary Care Provider [phone] Enrique Griffith MD Unavailable [phone] Encounter Details Date Type Department Care Team (Late st Contact Info) Description 06/10/[address] [facility] Transplant [facility] [address] [facility] [address] [place] [phone] Zion Virgen RN HOSPITAL KIDNEY [id number] [address] [phone] Social History Tobacco Use Types Packs/Day Years [...] Telephone Encounter - Zion Virgen RN - 06/10/2022 2:59 PM EDT Attempted to call patient to ask about weight loss progress and dental clearance, no answer, left VM documented in this encounter Plan of Treatment Not on file documented as of this encounter Visit Diagnoses Not on filedocumented in this encounter Care Teams Reconstructive Dentist Relationship Specialty Start Date End Date Edgar Fournier MD [address] [place] [address] PCP - General 12/25/20 Enrique Griffith MD [address] [place] [address] Referring Physician Nephrology 01/08/21 documented as of this encounter
--- OUTSIDE RECORDS SUMMARY | 2024-07-12 13:04 | XMS_ITS | Encounter Summary ---
Author Organization [facility] Address [address] [place] [address] Care Team Providers Care Digital Campaign Specialist Name Role Phone Edgar Fournier MD Primary Care Provider [phone] Enrique Griffith MD Unavailable [phone] Reason for Referral * Consultation (Routine) - Closed Specialty Diagnoses / Procedures Referred By Declan hines Referred To Contact Internal Medicine Diagnoses Pre-transplant evaluation for kidney transplant Petrona Sheppard MD [address] [phone] Phone: tel: fax: [facility] [address] [place] [address] Phone: tel: fax: Referral ID Status Reason Start Date Expiration Date V isits Requested Visits Authorized [id number] Closed Specialty Services Required 03/24/2023 09/22/2024 1 1 Encounter Details Date Type Department Care Team (Late st Contact Info) Description 03/24/2023 Orders Only [facility] [address] [place] [address] Zion Virgen, RN HOSPITAL KIDNEY [id number] [address] [place] [address] Pre-transplant evaluation for kidney transplant (Primary Dx) Social History Tobacco Use Types [...] as of this encounter Plan of Treatment Scheduled Referrals Name Type Priority Associated Diagnoses Order Schedule Ambulatory referral to [facility] Outpatient Referral Routine Pre-transplant evaluation for kidney transplant 1 Occurrences starting 03/24/2023 until 09/24/2024 documented as of this encounter Visit Diagnoses Diagnosis Pre-transplant evaluation for kidney transplant- Primary documented in this encounter Additional Health Concerns Assessment Noted Time A fall risk assessment has been complete d for the patient 03/16/2023 2:05 PM EDT A Body Mass Index follow-up plan has been documented for the patient 03/20/2023 6:25 AM EDT documented as of this encounter Care Teams Digital Campaign Specialist Relationship Specialty Start Date End Date Edgar Fournier MD [address] [place] [address] PCP - General 12/25/20 Enrique Griffith MD [address] [place] [phone] Referring Physician Nephrology 01/08/21 documented as of this encounter
--- OUTSIDE RECORDS SUMMARY | 2024-07-12 13:04 | XMS_ITS | Encounter Summary ---
Author Organization [facility] Address [address] [place] [address] Care Team Providers Care Solutions Architect Name Role Phone Edgar Fournier MD Primary Care Provider [phone] Enrique Griffith MD Unavailable [phone] Encounter Details Date Type Department Care Team (Late st Contact Info) Description 08/16/2022 Telephone [facility] Transplant [facility] [address] [facility] [address] [place] [phone] Armani Daswon Social History Tobacco Use Types Packs/Day Years [...] * Telephone Encounter - Armani Dawson - 08/16/2022 1:05 PM EST Quarterly dialysis information request report faxed to patient's reported dialysis center. documented in this encounter Plan of Treatment Not on file documented as of this encounter Visit Diagnoses Not on filedocumented in this encounter Care Teams Solutions Architect Relationship Specialty Start Date End Date Edgar Fournier MD [address] [place] [address] PCP - General 12/25/20 Enrique Griffith MD [address] [place] [phone] Referring Physician Nephrology 01/08/21 documented as of this encounter
--- OUTSIDE RECORDS SUMMARY | 2024-07-12 13:04 | XMS_ITS | Encounter Summary ---
Author Organization [facility] Address [address] [phone] Care Team Providers Care Ocean Biologist Name Role Phone Edgar Fournier MD Primary Care Provider [phone] Enrique Griffith MD Unavailable [phone] Encounter Details Date Type Department Care Team (Late st Contact Info) Description 08/16/2022 Telephone [facility] Transplant [facility] [address] [facility] [address] [place] [phone] Zion Virgen RN HOSPITAL KIDNEY [id number] [address] [phone] Social History Tobacco Use Types Packs/Day Years [...] Telephone Encounter - Zion Virgen RN - 08/16/2022 1:40 PM EST Called, spoke with patient, per patient, he had been under the weather states that after startinga new medication to assist with weight loss (patient states he is now down to 120kg) he was having significant issues with diarrhea. States that this has improved and is now interested in having appointments rescheduled. Congratulated patient on progress and informed him that chemical recovery operator would call him to r/s appointments, patient verbalized understanding and denies further needs. documented in this encounter Plan of Treatment Not on file documented as of this encounter Visit Diagnoses Not on filedocumented in this encounter Care Teams Ocean Biologist Relationship Specialty Start Date End Date Edgar Fournier MD [address] [place] [address] PCP - General 12/25/20 Enrique Griffith MD [address] [place] [phone] Referring Physician Nephrology 01/08/21 documented as of this encounter
--- OUTSIDE RECORDS SUMMARY | 2024-07-12 13:04 | XMS_ITS | Encounter Summary ---
Author Organization [facility] Address [address] [place] [address] Care Team Providers Care Shoddy Mill Worker Name Role Phone Edgar Fournier MD Primary Care Provider [phone] Enrique Griffith MD Unavailable [phone] Encounter Details Date Type Department Care Team (Latest Contact Info) Description 05/09/2023 Travel Social History Tobacco Use Types Packs/Day [...] documented as of this encounter Care Teams Shoddy Mill Worker Relationship Specialty Start Date End Date Edgar Fournier MD [address] [place] [address] PCP - General 12/25/20 Enrique Griffith MD [address] [place] [address] Referring Physician Nephrology 01/08/21 documented as of this encounter
--- OUTSIDE RECORDS SUMMARY | 2024-07-12 13:04 | XMS_ITS | Encounter Summary ---
Author Organization [facility] Address [address] [id number] Care Team Providers Care Supervisor Core Drilling Name Role Phone Edgar Fournier MD Primary Care Provider [phone] Enrique Griffith MD Unavailable [phone] Reason for Visit * Reason Comments Appointment Pre kidney annual Encounter Details Date Type Department Care Team (Late Contact Info) Description 06/27/2022 Telephone [facility] Transplant [facility] [address] [facility] [address] [place] [address] Shaji Roman Transplant [address] [place] [address] Appointment (Pre kidney annual) Social History Tobacco Use Types Packs/Day Years [...] * Telephone Encounter - Shaji Roman - 06/27/2022 4:26 PM EST Called and spoke with patients son. I tried call the patient but left 2 VM. Spoke with patient son and confirmed day and time of both annual days. Son expressed understanding and mailed annual schedule. documented in this encounter Plan of Treatment Not on file documented as of this encounter Visit Diagnoses Not on filedocumented in this encounter Care Teams Supervisor Core Drilling Relationship Specialty Start Date End Date Edgar Fournier MD [address] [place] [address] PCP - General 12/25/20 Enrique Griffith MD [address] [place] [phone] Referring Physician Nephrology 01/08/21 documented as of this encounter
--- OUTSIDE RECORDS SUMMARY | 2024-07-12 13:04 | XMS_ITS | Encounter Summary ---
Author Organization [facility] Address [address] [phone] Care Team Providers Care Office Spec Name Role Phone Edgar Fournier MD Primary Care Provider [phone] Enrique Griffith MD Unavailable [phone] Encounter Details Date Type Department Care Team (Late st Contact Info) Description 12/07/2022 Telephone [facility] Transplant [facility] [address] [facility] [address] [place] [phone] Zion Virgen RN HOSPITAL KIDNEY [id number] [address] [phone] Social History Tobacco Use Types Packs/Day Years [...] Telephone Encounter - Zion Virgen RN - 12/07/2022 3:22 PM EDT Received return call from patient. Patient wanted to confirm date of upcoming appointment, informedhim that appointments are scheduled for 01/05, patient verbalized understanding, denies further needs. documented in this encounter Plan of Treatment Not on file documented as of this encounter Visit Diagnoses Not on filedocumented in this encounter Care Teams Office Spec Relationship Specialty Start Date End Date Edgar Fournier MD [address] [place] [address] PCP - General 12/25/20 Enrique Griffith MD [address] [place] [phone] Referring Physician Nephrology 01/08/21 documented as of this encounter
--- OUTSIDE RECORDS SUMMARY | 2024-07-12 13:04 | XMS_ITS | Encounter Summary ---
Author Organization [facility] Address [address] [place] [address] Care Team Providers Care Manager Integration Name Role Phone Edgar Fournier MD Primary Care Provider [phone] Enrique Griffith MD Unavailable [phone] Reason for Visit * Reason Comments Weight Management * Consultation (Routine) - Closed Specialty Diagnoses / Procedures Referred By Declan hines Referred To Contact Internal Medicine Diagnoses Pre-transplant evaluation for kidney transplant Petrona Sheppard MD [address] [facility] [address] [place] [phone] Phone: tel: fax: [facility] [address] [address] Phone: tel: fax: Referral ID Status Reason Start Date Expiration Date V isits Requested Visits Authorized [id number] Closed Specialty Services Required 03/24/2023 09/22/2024 1 1 Encounter Details Date Type Department Care Team (Late st Contact Info) Description 05/09/2023 12:30 PM EDT Office Visit [place] [id number] [address] Eneida Richardson MD [address] [place] [address] Hypertension secondary to other renal disorders (Primary Dx); Liver transplanted (CMS/HCC); Type 2 diabetes mellitus with diabetic nephropathy, with long-term current use of insulin (CMS/HCC); Morbid obesity with body mass index (BMI) of 40.0 or higher (CMS/HCC) Social History Tobacco Use Types Packs/Day [...] Sign Reading Time Taken Comments Blood Pressure 129/84 05/09/2023 12:31 PM EDT Pulse 84 05/09/2023 12:31 PM EDT Temperature - - Respiratory Rate - - Oxygen Saturation - - Inhaled Oxygen Concentration - - Weight 136 kg (300 lb) 05/09/2023 12:31 PM EDT Height 175.3 cm (5' 9 ) 05/09/2023 12:31 PM EDT Body Mass Index 44.3 05/09/2023 12:31 PM EDT documented in this encounter Miscellaneous Notes * Progress Notes - Eneida Richardson MD - 05/09/2023 12:30 PM EDT Weight Loss Clinic New Patient Visit Patient Verification Patient identity has been confirmed using name and date of ? Yes Authorizations and Agreements/Telemedicine Consent sent and consent confirmed? Yes Patient Location: Patient's Home Patient confirms they are physically located in [place]? Yes If the patient is not physically located in [place], the provider has confirmed with Legal thatthe provider is authorized to provide services in patient's stated location? Yes Provider Location: HealthCare Facility Audio and video or audio only? Audio and video Total visit time: 40 minutes Subjective 48 yo M with h/o end-stage renal disease due to diabetic and hypertensive nephropathy, as well as calcineurin inhibitor nephrotoxicity. Patient has been on dialysis since November of 2019, via left forearm AV fistula; he is anuric. orthotopic liver transplant on October 09, 2017 at the [facility]. 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 On immunosuppression with cyclosporine and CellCept currently, reports inability to tolerate tacrolimus secondary to neurotoxicity. Patient currently on entecavir daily, presumed received a hepatitis B core positive donor. 2 right heart catheterization as and a left heart catheterization in 2021 and 2022, he was told results were okay; undergoing evaluation also the [facility]. Diabetes mellitus type 2 for over 15 years Diabetic neuropathy and retinopathy insulin-dependent Hypertension for over 5 years Hyperlipidemia Kim cirrhosis status post liver transplant September 2017 Anemia chronic kidney disease Obstructive sleep apnea no longer using CPAP Acute pancreatitis GERD Chronic pain Cholelithiasis BPH Pneumonia Nephrolithiasis Blood transfusion 2016 and 2019 Hard of hearing Liver transplant October 09, 2017 Tips placement 2017 Esophageal varices banding Left Fracture leg with hardware placement December 2020 Back surgery due to infection March 20202019 Needs to lose weight in order to qualify for kidney tx. S/p liver tx. Not good candidate for weightloss surgery, nor glps 2/2 h/o pancreatitis Sochx: , lives with and son, on disability, 0 pipe Meds reveiwed They would like him to lose about 20-30 lbs Has lost weight in the past with exercise but broke leg and foot and struggles with walking 2/2 stability Severe diarrhea with mounjaro and was hospitalized and similar with ozempic Past Medical History Past Medical History: Diagnosis Date Allergic 02/23/2020 Anemia Anxiety 2021 Arthritis Chronic kidney disease Conversions - Other Anemia Conversions - Other Benign Prostatic Hypertrophy Conversions - Other Cirrhosis Conversions - Other Diabetes Mellitus Diabetes mellitus type 2 Fatty (change of) liver, not elsewhere classified 10/25/2012 Hematochezia Hypertension Liver cirrhosis secondary to KIM (nonalcoholic steatohepatitis) (CMS/HCC) Neuropathy Obesity Osteoporosis 2018 Retinopathy 0 h/o subst use History of eating disorders? No Past Surgical History Past Surgical History: Procedure Laterality Date BACK SURGERY CHOLECYSTECTOMY LIVER TRANSPLANTATION 2017 OTHER SURGICAL HISTORY N/A History Of Prior Surgery from [facility] TREATMENT, LOWER LEG FRACTURE Social History Social History Tobacco Use Smoking status: Never Smokeless tobacco: Never Substance Use Topics Alcohol use: Never Comment: Alcoholic Drinks/day: Never Drank Alcohol Drug use: Yes Comment: Drug use: Drug Use Medications (including supplements/OTCs/herbals) Current Outpatient Medications on File Prior to Visit Medication Sig Dispense Refill aspirin 81 MG EC tablet Take 1 tablet (81 mg) by mouth 1 (one) time each day. Calcium Acetate 667 MG tablet Take 4 tablets by mouth 3 (three) times a day with meals. carBAMazepine (TEGretol) 200 MG tablet Take 1 tablet (200 mg) by mouth 2 (two) times a day. cycloSPORINE modified (Gengraf) 25 MG capsule Take 4 capsules (100 mg) by mouth 2 (two) times a day. doxazosin (Cardura) 8 MG tablet Take 1 tablet (8 mg) by mouth every night. entecavir (Baraclude) 0.5 MG tablet Take 1 tablet (0.5 mg) by mouth 1 (one) time per week. Take every . ergocalciferol (ergocalciferol) 1.25 MG (59559 UT) capsule Take 1 capsule (50,000 Units) by mouth 3(three) times a week. gabapentin (Neurontin) 800 MG tablet Take 0.5 tablets (400 mg) by mouth every other day. hydrALAZINE (Apresoline) 100 MG tablet Take 1 tablet (100 mg) by mouth 3 (three) times a day. Twicedaily always. Midday dose as needed. lisinopril 40 MG tablet Take 1 tablet (40 mg) by mouth 1 (one) time each day. mycophenolate (Cellcept) 250 MG capsule Take 1 capsule (250 mg) by mouth 2 (two) times a day. NIFEdipine XL (Procardia XL) 90 MG 24 hr tablet Take 1 tablet (90 mg) by mouth 2 (two) times a day. pantoprazole (ProtoNix) 40 MG EC tablet Take 1 tablet (40 mg) by mouth 2 (two) times a day. promethazine (Phenergan) 12.5 MG tablet Take 1 tablet (12.5 mg) by mouth every 8 (eight) hours if needed for nausea or vomiting. sevelamer carbonate (Renvela) 800 MG tablet Take 2 tablets (1,600 mg) by mouth 3 (three) times a day with meals. Swallow tablet whole; do not crush, break, or chew. testosterone cypionate (Depo-Testosterone) 200 MG/ML injection Inject 1 mL (200 mg) into the muscleevery 28 (twenty-eight) days. No current facility-administered medications on file prior to visit. Allergies Allergies Allergen Reactions Tacrolimus Other - please document in the comment field Anxious feeling and muscle jerking. TOLERATED ENVARSUS BETTER THAN PROGRAF. Codeine Anxiety Family History Family History Problem Relation Name Age of Onset Alcohol abuse Sister Nadya Holder Alcohol abuse Father Aiden Stauffer Sr Cancer Father Aiden Stauffer Sr Alcohol abuse Father's Brother Edwar Stauffer Cirrhosis Sister Diabetes Sister Diabetes Mother Family Weight History: Relative Height Weight BMI Current Age or Age of Mother underweight Father average Spouse/Significant Other Nl weight Child #1 average Child #2 average Child #3 average Child #4 Weight History Small as a child not big till after transplant Lowest weight as adult: 190 football athlete Heaviest weight as adult: now Before transplant weighed about 210-220 Age of initial effort to lose weight: Weight 6 months ago: Weight 1 year ago: Prior programs tried (date, weight change, duration involved): Maintenance of weight loss for up to 1 year with any of above programs: Involvement in physical activity programs to help with weight loss: Exercise, wwork a lot, britton, Dietary Assessment TOPIC In an average week over the last 2-3 months: Usually/Often (5-7x/week) Sometimes (2-4x/week) Rarely/Never (<2 times/week) Does not apply Meals Eat breakfast Eat lunch Eat dinner Eat meals from sit-down or take out restaurants [] [x] [x] [] [] [] [] [] [x] [] [] [x] [] [] [] [] Grains Eat whole grain products daily [] [] [x] [] Fruits/vegetables Eat at least 2-3 servings of fruit daily Eat at least 3-4 servings of vegetables daily [x] [x] [] [] [] [] [] [] Dairy Eat more than 2-3 servings of milk, yogurt, or cheese daily Use 2% or whole milk instead of skim or 1% milk Use regular cheese instead of low fat or part skim cheeses [] [] [] [] [] [] [x] [x] [x] [] [] [] Meats Eat more than 2 servings/week of beef, pork or dark meat chicken Choose higher fat red meats like prime rib, T-bone steak, hamburgers, ribs, etc. Instead of lean Eat the skin on chicken and turkey or the fat on Eat processed meats [x] [] [] [] [] [] [] [] [] [x] [x] [x] [] [] [] [] Fried Foods Eat fried foods [] [] [] [x] Snacks Eat potato chips, lilo chips, corn chips, crackers, or popcorn [] [x] [] [] Fats and Oils Use creamy salad dressing and mayonnaise Add butter, margarine or oil to bread, potatoes, rice or chief ii dispatcher with lard, butter or margarine [] [] [] [] [x] [x] [x] [] [] [] [] [] Sweets Eat sweets like cake, cookies, pastries, donuts, muffins, chocolate Eat ice cream Eat sweets like cake, cookies, pastries, donuts, muffins, chocolate or candies >2 times/day [x] [] [] [] [] [] [] [x] [x] [] [] [] Drinks Drink sugary soft drinks or juices or sugar-sweetened beverages more than once per day [] [][] [x] Alcohol Drink more than 1-2 alcoholic drinks daily [] [] [] [x] Sodium Eat high sodium processed foods like canned soup or pasta, frozen/packaged meal, chips Add salt to foods during cooking or at the table [] [] [] [] [x] [] [] [x] Preparation Grocery shop for myself/family Prepare my own meals [] [] [] [] [x] [x] [] [] 24 hour dietary recall: Meal Time Location Food and beverages consumed Amount Breakfast Morning snack Lunch Afternoon snack Dinner Evening snack Home hemo 05/08 8am Had appt 2pm - spaghetti with red sauce and meatballs and bread root beer 05/09 Nothing so far Not a breakfast person Usually eats lunch and dinner Monday 05/07 3pm - grilled pork chops and corn potato salad homemade sf lemonade Activity Assessment In between Level of enjoyment of physical activity: Greatly Any physical problems that limit physical activity: Yes, balance Types of physical activities that are enjoyed (3): play with grandsons Number of times in the last six months that patient participated in one of the above activities: Number of hours of TV/screen time during an average weekday: 4-5 hours Number of hours of TV/screen time during an average weekend day: 4-5 hours Number of city blocks (12 blocks =1 mile) or their equivalent walked daily: walks every day Number of flights (1 flight = 10 steps) of stairs climbed daily: 0 flights All medications have been reviewed today. The following portions of the patient's chart were reviewed in this encounter and updated as appropriate: past medical history, surgical history, family history, tobacco history, allergies, and medications Review of Systems Constitutional: Negative. HENT: Positive for hearing loss. Respiratory: Negative. Cardiovascular: Negative. Psychiatric/Behavioral: Negative. Objective Vitals: 05/09/23 1231 BP: 129/84 Pulse: 84 Physical Exam Assessment/Plan 48 yo M with h/o end-stage renal disease due to diabetic and hypertensive nephropathy, as well as calcineurin inhibitor nephrotoxicity. Patient has been on dialysis since November of 2019, via left forearm AV fistula; he is anuric. orthotopic liver transplant on October 09, 2017 at the [facility]. 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 On immunosuppression with cyclosporine and CellCept currently, reports inability to tolerate tacrolimus secondary to neurotoxicity. Patient currently on entecavir daily, presumed received a hepatitis B core positive donor. 2 right heart catheterization as and a left heart catheterization in 2021 and 2022, he was told results were okay; undergoing evaluation also the [facility]. Diabetes mellitus type 2 for over 15 years Diabetic neuropathy and retinopathy insulin-dependent Hypertension for over 5 years Hyperlipidemia Kim cirrhosis status post liver transplant September 2017 Anemia chronic kidney disease Obstructive sleep apnea no longer using CPAP Acute pancreatitis GERD Chronic pain Cholelithiasis BPH Pneumonia Nephrolithiasis Blood transfusion 2016 and 2019 Hard of hearing Liver transplant October 09, 2017 Tips placement 2017 Esophageal varices banding Left Fracture leg with hardware placement December 2020 Back surgery due to infection March 20202019 And obesity, here for chronic dz and weight mgmt eval Record food Food diary Could potentially consider phentermine 292 is dry weight Eneida Richardson MD documented in this encounter Plan of Treatment Not on file documented as of this encounter Visit Diagnoses Diagnosis Hypertension secondary to other renal disorders- Primary Liver transplanted (CMS/HCC) Liver replaced by transplant Type 2 diabetes mellitus with diabetic nephropathy, with long-term current use of insulin (CMS/HCC) Morbid obesity with body mass index (BMI) of 40.0 or higher (CMS/HCC) documented in this encounter Additional Health Concerns Assessment Noted Time A fall risk assessment has been complete d for the patient 03/16/2023 2:05 PM EDT A Body Mass Index follow-up plan has been documented for the patient 05/21/2023 6:14 PM EDT documented as of this encounter Care Teams Manager Integration Relationship Specialty Start Date End Date Edgar Fournier MD [address] [place] [address] PCP - General 12/25/20 Enrique Griffith MD [address] [place] [phone] Referring Physician Nephrology 01/08/21 documented as of this encounter
--- OUTSIDE RECORDS SUMMARY | 2024-07-12 13:04 | XMS_ITS | Encounter Summary ---
Author Organization [facility] Address [address] [place] [address] Care Team Providers Care Business Control Manager Name Role Phone Edgar Fournier MD Primary Care Provider [phone] Enrique Griffith MD Unavailable [phone] Reason for Visit * Reason Comments Appointment Reschedule eval Encounter Details Date Type Department Care Team (Late Contact Info) Description 12/05/2022 Telephone [facility] [address] [facility] [address] [place] [phone] Shaji Roman Transplant [address] [place] [address] Appointment (Reschedule eval ) Social History Tobacco Use Types Packs/Day [...] * Telephone Encounter - Shaji Roman - 12/05/2022 3:08 PM EDT Received e-mail from Kim Conway requesting to reschedule all appts on 12/08. Call and spoke to pt an informed him of SW appt needing to be reschedule. Pt agreed to move all eval appt. Pt has been rescheduled eval for 01/05, txp lab, surgeon, SW and pano. Mailed new eval schedule documented in this encounter Plan of Treatment Not on file documented as of this encounter Visit Diagnoses Not on filedocumented in this encounter Care Teams Business Control Manager Relationship Specialty Start Date End Date Edgar Fournier MD [address] [place] [address] PCP - General 12/25/20 Enrique Griffith MD [address] [place] [phone] Referring Physician Nephrology 01/08/21 documented as of this encounter
--- OUTSIDE RECORDS SUMMARY | 2024-07-12 13:04 | XMS_ITS | Encounter Summary ---
Author Organization [facility] Address [address] [place] [address] Care Team Providers Care Cis Coordinator Name Role Phone Edgar Fournier MD Primary Care Provider [phone] Enrique Griffith MD Unavailable [phone] Encounter Details Date Type Department Care Team (Late st Contact Info) Description 04/11/2023 Telephone [facility] [address] [place] [address] Eneida Richardson MD [address] [place] [address] Social History Tobacco Use Types [...] documented as of this encounter Care Teams Cis Coordinator Relationship Specialty Start Date End Date Edgar Fournier MD [address] [place] [address] PCP - General 12/25/20 Enrique Griffith MD [address] [place] [phone] Referring Physician Nephrology 01/08/21 documented as of this encounter
--- OUTSIDE RECORDS SUMMARY | 2024-07-12 13:04 | XMS_ITS | Encounter Summary ---
Author Organization [facility] Address [address] [place] [id number] Care Team Providers Care Veneer Glue Jointer Feedback Name Role Phone Edgar Fournier MD Primary Care Provider [phone] Enrique Griffith MD Unavailable [phone] Encounter Details Date Type Department Care Team (Late st Contact Info) Description 04/05/2022 Telephone [facility] [address] [facility] [address] [place] [phone] Zion Virgen RN HOSPITAL K[facility]NEY [id number] [address] [place] [phone] Social History Tobacco Use Types Packs/Day Years [...] Telephone Encounter - Zion Virgen RN - 04/05/2022 10:35 AM EDT Called patient to check on weight loss, dental clearance, and annual scheduling, patient states that his dry weight is now below 200, states he has had a great deal of fluid pulled off and is feelingbetter as a result. States he does have dental clearance form, and is wiling to return for annual testing. Will place orders. Patient also states he has appointment on 04/07 for procedure but needs toreschedule, coordinator stated he would let central scheduler know, message sent to Eleanor Perez with Interventional nephrology documented in this encounter Plan of Treatment Not on file documented as of this encounter Visit Diagnoses Not on filedocumented in this encounter Care Teams Veneer Glue Jointer Feedback Relationship Specialty Start Date End Date Edgar Fournier MD [address] [place] [address] PCP - General 12/25/20 Enrique Griffith MD [address] [place] [phone] Referring Physician Nephrology 01/08/21 documented as of this encounter
--- OUTSIDE RECORDS SUMMARY | 2024-07-12 13:04 | XMS_ITS | Encounter Summary ---
Author Organization [facility] Address [address] [place] [address] Care Team Providers Care Spectrographer Name Role Phone Edgar Fournier MD Primary Care Provider Enrique Griffith MD Unavailable [phone] Encounter Details Date Type Department Care Team (Late st Contact Info) Description 04/12/2023 Telephone [facility] [address] [place] [address] Eneida Richardson MD [address] [place] [address] Social History Tobacco Use Types [...] * Telephone Encounter - Aleksandra Giraldo - 04/12/2023 10:43 AM EDT TXP! New Patient documented in this encounter Plan of Treatment [...] documented as of this encounter Care Teams Spectrographer Relationship Specialty Start Date End Date Edgar Fournier MD [address] [place] [address] PCP - General 12/25/20 Enrique Griffith MD [address] [place] [phone] Referring Physician Nephrology 01/08/21 documented as of this encounter
--- OUTSIDE RECORDS SUMMARY | 2024-07-12 13:04 | XMS_ITS | Encounter Summary ---
Author Organization [facility] Address [address] [place] [id number] Care Team Providers Care School Adjustment Counselor Name Role Phone Edgar Fournier MD Primary Care Provider [phone] Enrique Griffith MD Unavailable [phone] Encounter Details Date Type Department Care Team (Late st Contact Info) Description 10/20/2022 Telephone [facility] [address] [facility] [address] [place] [phone] Zion Virgen RN HOSPITAL KIDNEY [id number] [address] [place] [phone] Social History Tobacco Use Types Packs/Day Years [...] Telephone Encounter - Zion Virgen RN - 10/20/2022 1:55 PM EST Received return call from patient who states that he was unaware he had appointments today. Informed patient that we can reschedule these but patient really needs to attend appointment. Patient states that at asked if there is a portal program here at he can use. Informed patient that there is send invitation to patients email, patient was able to access. Informed patient that coordinator would send message to pharmacy technician inpatient to r/s appointments, patient verbalized understanding. Message to DL to r/s documented in this encounter Plan of Treatment Not on file documented as of this encounter Visit Diagnoses Not on filedocumented in this encounter Care Teams School Adjustment Counselor Relationship Specialty Start Date End Date Edgar Fournier MD [address] [place] [address] PCP - General 12/25/20 Enrique Griffith MD [address] [place] [phone] Referring Physician Nephrology 01/08/21 documented as of this encounter
--- OUTSIDE RECORDS SUMMARY | 2024-07-12 13:04 | XMS_ITS | Encounter Summary ---
Author Organization [facility] Address [address] [place] [id number] Care Team Providers Care Ad Operations Coordinator Name Role Phone Edgar Fournier MD Primary Care Provider [phone] Enrique Griffith MD Unavailable [phone] Encounter Details Date Type Department Care Team (Late st Contact Info) Description 12/07/2022 Telephone [facility] [address] [facility] [address] [place] [phone] Zion Virgen RN HOSPITAL KIDNEY [id number] [address] [place] [phone] Social History Tobacco Use Types Packs/Day Years [...] Encounter - Zion Virgen RN - 12/07/2022 3:20 PM EDT Attempted to return patient VM, no answer, left VM documented in this encounter Plan of Treatment Not on file documented as of this encounter Visit Diagnoses Not on filedocumented in this encounter Care Teams Ad Operations Coordinator Relationship Specialty Start Date End Date Edgar Fournier MD [address] [place] [address] PCP - General 12/25/20 Enrique Griffith MD [address] [place] [phone] Referring Physician Nephrology 01/08/21 documented as of this encounter
--- OUTSIDE RECORDS SUMMARY | 2024-07-12 13:04 | XMS_ITS | Encounter Summary ---
Author Organization [facility] Address [address] [id number] Care Team Providers Care Demurrage Man Name Role Phone Edgar Fournier MD Primary Care Provider [phone] Enrique Griffith MD Unavailable [phone] Encounter Details Date Type Department Care Team (Late st Contact Info) Description 02/13/[address] [facility] [address] [facility] [address] [place] [phone] Zion Virgen RN [facility] [id number] [address] [phone] Social History Tobacco Use Types Packs/Day Years [...] Telephone Encounter - Zion Virgen RN - 02/13/2023 2:45 PM EDT Received call and had extensive conversation with patient, Patient had questions regarding upcominglabwork for annual, discussed these to patients stated satisfaction. Patient stated as regards his cardiology visit, patient states that his forestry technical officer had discussed bariatric surgery with him, andpatient states he was told by a friend who is a liver doctor that this would be a bad idea for him to get if he intends on getting a kidney transplant. Informed patient that while bariatric surgery isn't a contraindication for us there are some types of bariatric procedures that we do not necessarily recommend due to how they might impact medication absorption. Coordinator recommended that patient see surgeon as part of his annual visit on 03/16 and that surgeon can determine how much weight he still might need to lose prior to approval, and whether or not bariatric surgery would be recommended. Patient verbalized understanding and is amenable to plan. documented in this encounter Plan of Treatment Not on file documented as of this encounter Visit Diagnoses Not on filedocumented in this encounter Care Teams Demurrage Man Relationship Specialty Start Date End Date Edgar Fournier MD [address] [place] [address] PCP - General 12/25/20 Enrique Griffith MD [address] [place] [phone] Referring Physician Nephrology 01/08/21 documented as of this encounter
--- OUTSIDE RECORDS SUMMARY | 2024-07-12 13:04 | XMS_ITS | Encounter Summary ---
Author Organization [facility] Address [address] [id number] Care Team Providers Care Ski Molder Name Role Phone Edgar Fournier MD Primary Care Provider [phone] Enrique Griffith MD Unavailable [phone] Reason for Referral * Consultation (Routine) - Closed Specialty Diagnoses / Procedures Referred By Declan hines Referred To Contact Transplant Diagnoses End stage renal disease ([facility]/HCC) Petrona Sheppard MD [address] [address] Phone: tel: fax: [facility] [address] [address] Phone: tel: fax: Referral ID Status Reason Start Date Expiration Date V isits Requested Visits Authorized [id number] Closed Specialty Services Required 04/05/2022 10/05/2023 1 1 * Consultation (Routine) - Closed Specialty Diagnoses / Procedures Referred By Declan hines Referred To Contact Transplant Diagnoses End stage renal disease (CMS/HCC) Petrona Sheppard MD [address] [address] Phone: tel: fax: [facility] [place] [address] [address] Phone: tel: fax: Referral ID Status Reason Start Date Expiration Date V isits Requested Visits Authorized [id number] Closed Specialty Services Required 04/05/2022 10/05/2023 1 1 Encounter Details Date Type Department Care Team (Late st Contact Info) Description 04/05/2022 Orders Only [facility] [address] [place] [address] [address] Zion Virgen, [facility] [id number] [address] [place], [place] [id number] End stage renal disease (CMS/HCC) (Primary Dx) Social History Tobacco Use Types [...] Name Type Priority Associated Diagnoses Order Schedule Consult - Transplant Social Work Outpatient Referral Routine End stage renal disease (CMS/HCC) 1 Occurrences starting 04/05/2022 until 10/06/2023 Consult - Transplant Surgeon Outpatient Referral Routine End stage renal disease (CMS/HCC) 1 Occurrences starting 04/05/2022 until 10/06/2023 documented as of this encounter Results * Prostate Cancer Screen, PSA Total (03/16/2023 1:57 PM EDT) Prostate Cancer Screen, Serum 0.56 0.00 - 2.50 ng/mL 03/16/2023 4:56 PM EDT [facility] Blood Venous blood specimen / Unknown Venipuncture / Unknown 03/16/2023 1:57 PM EDT 03/16/2023 4:16 PM EDT Narrative [facility] - 03/16/2023 4:56 PM EDT Performed by Kem electrochemiluminescent immunoassay which is standardized against the PSA [place] Reference Standard (WHO 96/670). Results obtained with different test methods or kits cannot be used interchangeably. us Petrona Sheppard MD LAB BLOOD ORDERABLES Final Resul t Performing Organization Address [facility] de Phone Number [facility] [address] [place] [address] * HLA Antibody Testing (LSA) (03/16/2023 1:57 PM EDT) Blood Venous blood specimen / Unknown Venipuncture / Unknown 03/16/2023 1:57 PM EDT 03/16/2023 3:37 PM EDT us Petrona Sheppard MD LAB BLOOD ORDERABLES Final Resul t Performing Organization Address [facility] de Phone Number [facility] [address] [place] [address] * (ABNORMAL) Hepatitis B Surface Antibody (03/16/2023 1:57 PM EDT) [facility] Hepatitis B Surface Antibody Positive( A) Negative mIU/mL 03/16/2023 4:45 PM EDT [facility] Comment:Antibodies to HBsAg are present at a level greater than or equal to 12 International Units/L. This usually indicates protection against infection. Blood Venous blood specimen / Unknown Venipuncture / Unknown 03/16/2023 1:57 PM EDT 03/16/2023 3:37 PM EDT us Petrona Sheppard MD LAB BLOOD ORDERABLES Final Resul t Performing Organization Address [facility] Co de Phone Number [facility] [address] [place] [address] * Hepatitis B Surface Antigen (03/16/2023 1:57 PM EDT) Hepatitis B Surf Antigen Negative Negative 03/16/2023 4:45 PM EDT [facility] Blood Venous blood specimen / Unknown Venipuncture / Unknown 03/16/2023 1:57 PM EDT 03/16/2023 3:37 PM EDT us Petrona Sheppard MD LAB BLOOD ORDERABLES Final Resul t Performing Organization Address City/[facility] Co de Phone Number [facility] [address] [place] [address] * (ABNORMAL) Hepatitis B Core Total Antibody IgG,IgM (03/16/2023 1:57 PM EDT) Pathologist [facility] Hepatitis B Core Total Antibody IgG,IgM Positive(A ) Negative 03/16/2023 7:05 PM EDT [facility] Blood Venous blood specimen / Unknown Venipuncture / Unknown 03/16/2023 1:57 PM EDT 03/16/2023 3:37 PM EDT Result Yuri Sheppard MD LAB BLOOD ORDERABLES Final Resul t Performing Organization Address City/[facility] Co de Phone Number [facility] [address] [place] [address] * Hepatitis C Antibody (03/16/2023 1:57 PM EDT) Pathologist [facility] Hepatitis C Antibody Negative Negative 03/16/2023 5:00 PM EDT [facility] Blood Venous blood specimen / Unknown Venipuncture / Unknown 03/16/2023 1:57 PM EDT 03/16/2023 4:17 PM EDT us Petrona Sheppard MD LAB BLOOD ORDERABLES Final Resul t Performing Organization Address City/[facility] Co de Phone Number [facility] [address] [place] [address] * HIV 1/2 Antibody/Antigen Screen (03/16/2023 1:57 PM EDT) Pathologist [facility] HIV 1 & 2 Antibody/Antigen Screen Non Reactive Non Reactive 03/16/2023 4:59 PM EDT [facility] Comment:Screening for HIV 1 & 2 antibodies, and P24 antigen is NONREACTIVE. No confirmatory testing is required. Blood Venous blood specimen / Unknown Venipuncture / Unknown 03/16/2023 1:57 PM EDT 03/16/2023 4:16 PM EDT us Petrona Sheppard MD LAB BLOOD ORDERABLES Final Resul t [facility] [address] [place] [address] documented in this encounter Visit Diagnoses Diagnosis End stage renal disease (CMS/HCC)- Primary End stage renal disease documented in this encounter Care Teams Ski Molder Relationship Specialty Start Date End Date Edgar Fournier MD [address] [place] [address] PCP - General 12/25/20 Enrique Griffith MD [address] [place] [address] Referring Physician Nephrology 01/08/21 documented as of this encounter
--- OUTSIDE RECORDS SUMMARY | 2024-07-12 13:04 | XMS_ITS | Encounter Summary ---
Author Organization [facility] Address [address] [id number] Care Team Providers Care Vice President Global Advertising Sales Name Role Phone Edgar Fournier MD Primary Care Provider [phone] Enrique Griffith MD Unavailable [phone] Encounter Details Date Type Department Care Team (Late st Contact Info) Description 05/12/2023 Telephone [facility] [address] [facility] [address] [place] [phone] Zion Virgen RN [facility]OSPITAL [facility]NEY [id number] [address] [phone] Social History Tobacco Use Types Packs/Day Years [...] Encounter - Zion Virgen RN - 05/12/2023 9:49 AM EDT Returned VM from patient, patient states he will go back to see Dr. Richardson in May for telehealth visit but expressed interest in possibly going to see bariatric surgery. Provided patient with number for Dr. Vickers with bariatric surgery and explained that he would have to reach out to them himself as that is Dr. Mix requirement. Patient verbalized understanding and states that he would doso. documented in this encounter Plan of Treatment [...] documented as of this encounter Care Teams Vice President Global Advertising Sales Relationship Specialty Start Date End Date Edgar Fournier MD [address] [place] [address] PCP - General 12/25/20 Enrique Griffith MD [address] [place] [phone] Referring Physician Nephrology 01/08/21 documented as of this encounter
--- OUTSIDE RECORDS SUMMARY | 2024-07-12 13:04 | XMS_ITS | Encounter Summary ---
Author Organization [facility] Address [address] [place] [address] Care Team Providers Care Through Freight Engineer Name Role Phone Edgar Strong MD Primary Care Provider [phone] Enrique Griffith MD Unavailable [phone] Reason for Visit * Reason Comments Follow-up Weight loss * Consultation (Routine) - Closed Specialty Diagnoses / Procedures Referred By Declan hines Referred To Contact Internal Medicine Diagnoses Pre-transplant evaluation for kidney transplant Petrona Sheppard MD [address] [facility] [address] [place] [phone] Phone: tel: fax: [facility] [address] [address] Phone: tel: fax: Referral ID Status Reason Start Date Expiration Date V isits Requested Visits Authorized [id number] Closed Specialty Services Required 03/24/2023 09/22/2024 1 1 Encounter Details Date Type Department Care Team (Late st Contact Info) Description 06/29/2023 3:00 PM EST Office Visit [facility] [address] [phone] Eneida Richardson MD [address] [place] [address] Pre-transplant evaluation for kidney transplant Social History Tobacco Use Types Packs/Day Years Used Date Smoking Tobacco: Every Day Smokeless Tobacco: Never Tobacco Cessation:Ready to Q uit: Not Asked Alcohol Use Standard Drinks/Week Comments Never 0 (1 standard drink = 0.6 oz pure alcohol) Alcoholic Drinks/day: Never Drank Alcohol PHQ-2 Answer Date Recorded Patient Health Questionnaire-2 Score 0 06/29/2023 PHQ-2A Answer Date Recorded Patient Health Questionnaire-2 Score 0 06/29/2023 Sex and Gender Information Value Date Recorded Sex Assigned at Not on file Legal Sex Male 6:10 PM EDT Gender Identity Not on file Sexual Orientation Straight 03/02/2021 10 :04 AM EDT documented as of this encounter Last Filed Vital Signs Vital Sign [place] Time Taken Comments Blood Pressure 128/80 06/29/2023 2:35 PM EST Pulse - - Temperature - - Respiratory Rate - - Oxygen Saturation - - Inhaled Oxygen Concentration - - Weight 130 kg (286 lb 9.6 oz) 06/29/2023 2:35 PM EST Height 175.3 cm (5' 9 ) 06/29/2023 2:35 PM EST Body Mass Index 42.32 06/29/2023 2:35 PM EST documented in this encounter Miscellaneous Notes * Progress Notes - Eneida Richardson MD - 06/29/2023 3:00 PM EST Subjective Aiden Stauffer Patient Verification Patient identity has been confirmed using name and date of ? Yes Authorizations and Agreements/Telemedicine Consent sent and consent confirmed? Yes Patient Location: Patient's Home Patient confirms they are physically located in [place]? Yes If the patient is not physically located in [place], the provider has confirmed with Legal thatthe provider is authorized to provide services in patient's stated location? Yes Provider Location: Health[facility] Facility Audio and video or audio only? 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 Patient has been on dialysis since November of 2019, via left forearm AV fistula; he is anuric. orthotopic liver transplant on October 09, 2017 at the [facility]. 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 On immunosuppression with cyclosporine and CellCept currently, reports inability to tolerate tacrolimus secondary to neurotoxicity. Patient currently on entecavir daily, presumed received a hepatitis B core positive donor. 2 right heart catheterization as and a left heart catheterization in 2021 and 2022, he was told results were okay; undergoing evaluation also the [facility]. Diabetes mellitus type 2 for over 15 years Diabetic neuropathy and retinopathy insulin-dependent Hypertension for over 5 years Hyperlipidemia Kim cirrhosis status post liver transplant September 2017 Anemia chronic kidney disease Obstructive sleep apnea no longer using CPAP Acute pancreatitis GERD Chronic pain Cholelithiasis BPH Pneumonia Nephrolithiasis Blood transfusion 2016 and 2019 Hard of hearing Liver transplant October 09, 2017 Tips placement 2016 Esophageal varices banding Left Fracture leg with hardware placement December 2020 Back surgery due to infection March 2020 And obesity here for chronic dz and weight mgmt eval. Needs to lose weight in order to qualify for kidney tx. S/p liver tx. Not good candidate for weightloss surgery, nor glps 2/2 h/o pancreatitis Does home hemo 4 dsys per week Dry weight is 127 So has lost around 20 lbs so far!!!! Feels like gets gassy and bloated and constipated at times.allsince dialysis (occ diarrhea) although gassy and bloated not as much. Worked on eating. Brewed tea with very little sugar. Eating less. Bg - about 2 weeks ago bg went eleevated. So went on lantus 40 units at bedtime only and bg was running high during the day but then on Monday did 40 but 10 tid plus at bedtime. Wast told to stop humulin n. Call dr strong and let him know what you are doing and see if he wants you to to swtich. Could consider bid before breakfast and before dinner. Bg better however with weight loss. Yesterday not sure what ate What is hard? 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 (nonalcoholic steatohepatitis) (CMS/HCC) Neuropathy Obesity Osteoporosis 2018 Retinopathy Family History Problem Relation Name Age of Onset Alcohol abuse Sister Nadya Holder Alcohol abuse Father Aiden Stauffer Sr Cancer Father Aiden Stauffer Sr Alcohol abuse Father's Brother Edwar Stauffer Cirrhosis Sister Diabetes Sister Diabetes Mother Past Surgical History: Procedure Laterality Date BACK SURGERY CHOLECYSTECTOMY LIVER TRANSPLANTATION 2018 OTHER SURGICAL HISTORY N/A History Of Prior Surgery from [employer] TREATMENT, LOWER LEG FRACTURE Social History Socioeconomic History Marital status: Spouse name: Not on file Number of children: Not on file Years of education: Not on file Highest education level: Not on file Occupational History Not on file Tobacco Use Smoking status: Every Day Smokeless tobacco: Never Substance and Sexual Activity Alcohol use: Never Comment: Alcoholic Drinks/day: Never Drank Alcohol Drug use: Yes Comment: Drug use: Drug Use Sexual activity: Yes Partners: Female control/protection: None Other Topics Concern Not on file Social History Narrative Unemployed Social Determinants of Health Financial Resource Strain: Not on file Food Insecurity: Not on file Transportation Needs: Not on file Physical Activity: Not on file Stress: Not on file Social Connections: Not on file Intimate Partner Violence: Not on file Housing Stability: Not on file Current Outpatient Medications on File Prior to Visit Medication Sig Dispense Refill ALPRAZolam (Xanax) 0.5 MG tablet Take 1 tablet (0.5 mg) by mouth if needed for anxiety. aspirin 81 MG EC tablet Take 1 tablet (81 mg) by mouth 1 (one) time each day. calcitriol (Rocaltrol) 0.25 MCG capsule Take by mouth 1 (one) time each day. Calcium Acetate 667 MG tablet Take 4 tablets by mouth 3 (three) times a day with meals. carvedilol (Coreg) 25 MG tablet Take 2 tablets (50 mg) by mouth twice a day. cinacalcet (Sensipar) 90 MG tablet TAKE 1 TABLET BY MOUTH ONCE A DAY DIRECTED WITH THE EVENING MEAL Continuous Blood Gluc Shipping/Receiving Manager (Dexcom G7 Shipping/Receiving Manager) device USE DIRECTED by Continuous Blood Gluc Sensor (Dexcom G7 Sensor) misc USE DIRECTED CHANGE every 10 DAYS cycloSPORINE modified (Gengraf) 25 MG capsule Take 4 capsules (100 mg) by mouth 2 (two) times a day. doxazosin (Cardura) 8 MG tablet Take 1 tablet (8 mg) by mouth every night. entecavir (Baraclude) 0.5 MG tablet Take 1 tablet (0.5 mg) by mouth 1 (one) time per week. Take every . ergocalciferol (ergocalciferol) 1.25 MG (86986 UT) capsule Take 1 capsule (50,000 Units) by mouth 3(three) times a week. folic acid (Folvite) 1 MG tablet Take 1 tablet (1,000 mcg) by mouth 1 (one) time each day. gabapentin (Neurontin) 800 MG tablet Take 0.5 tablets (400 mg) by mouth every other day. hydrALAZINE (Apresoline) 100 MG tablet Take 1 tablet (100 mg) by mouth 3 (three) times a day. Twicedaily always. Midday dose as needed. methocarbamol (Robaxin) 500 MG tablet TAKE ONE TABLET BY MOUTH FOUR TIMES DAILY (BEFORE MEALS AND AT BEDTIME) montelukast (Singulair) 10 MG tablet Take 1 tablet (10 mg) by mouth 1 (one) time each day. mycophenolate (Cellcept) 250 MG capsule Take 1 capsule (250 mg) by mouth 2 (two) times a day. NIFEdipine XL (Procardia XL) 90 MG 24 hr tablet Take 1 tablet (90 mg) by mouth 2 (two) times a day. ondansetron ODT (Zofran-ODT) [address] tablet [address] 1 Tablet on the tongue and let dissolve every 8 hours as needed for nausea pantoprazole (ProtoNix) 40 MG EC tablet Take 1 tablet (40 mg) by mouth 2 (two) times a day. promethazine (Phenergan) 12.5 MG tablet Take 1 tablet (12.5 mg) by mouth every 8 (eight) hours if needed for nausea or vomiting. promethazine (Phenergan) 25 MG tablet Take 1 tablet (25 mg) by mouth every night. sevelamer carbonate (Renvela) 800 MG tablet Take 2 tablets (1,600 mg) by mouth 3 (three) times a day with meals. Swallow tablet whole; do not crush, break, or chew. sodium zirconium cyclosilicate (Lokelma) 10 g packet Take 10 g by mouth 1 (one) time each day. testosterone cypionate (Depo-Testosterone) 200 MG/ML injection Inject 1 mL (200 mg) into the muscleevery 28 (twenty-eight) days. Vascepa 1 g capsule TAKE 2 Capsule by mouth twice daily Vitamin D3 1.25 MG (43092 UT) capsule take 1 Capsule by mouth 3 times weekly Auryxia 1 GM 210 MG(Fe) tablet carBAMazepine (TEGretol) 200 MG tablet Take 1 tablet (200 mg) by mouth 2 (two) times a day. (Patient not taking: Reported on 05/26/2023) fluticasone (Flonase) 50 MCG/ACT nasal spray [place] 2 spray nasALLY once a day as directed (Patient not taking: Reported on 05/26/2023) folic acid (Folvite) 1 MG tablet Take 1 tablet (1,000 mcg) by mouth 1 (one) time each day. insulin NPH, Isophane, (HumuLIN N) 100 UNIT/ML injection vial Inject 1-2 times per day as directed.10 mL 11 lisinopril 40 MG tablet Take 1 tablet (40 mg) by mouth 1 (one) time each day. (Patient not taking: Reported on 05/26/2023) temazepam (Restoril) 7.5 MG capsule Take 2 capsules (15 mg) by mouth 1 (one) time each day. (Patient not taking: Reported on 05/26/2023) traZODone (Desyrel) 50 MG tablet (Patient not taking: Reported on 05/09/2023) zolpidem (Ambien) 5 MG tablet (Patient not taking: Reported on 05/09/2023) No current facility-administered medications on file prior to visit. Allergies Allergen Reactions Tacrolimus Other - please document in the comment field Anxious feeling and muscle jerking. TOLERATED ENVARSUS BETTER THAN PROGRAF. Codeine Anxiety Health Maintenance Due Topic Date Due [facility]-Medicare Annual Wellness (AWV) Never done Diabetes: Dental Exam Never done [facility]- SDOH Screenings Never done [facility]-DTaP,Tdap,and Td Vaccines (1 - Tdap) Never done [facility]-Zoster Vaccines (1 of 2) Never done Hepatitis A Vaccines (3 of 3 - Hep A Twinrix risk 3-dose series) 12/01/2014 [facility]-Pneumococcal Vaccine: Pediatrics (0 to 5 Years) and At-Risk Patients (6 to 64 Years) (3 - PCV) 08/08/2018 [facility]-Diabetes: Hemoglobin A1C 07/28/2021 COVID-19 Vaccine (3 - Moderna risk series) 10/26/2021 [facility]-Influenza Vaccine (1) 04/14/2023 All medications have been reviewed today. The following portions of the patient's chart were reviewed in this encounter and updated as appropriate: past medical history, surgical history, family history, tobacco history, allergies, and medications Review of Systems Constitutional: Negative. Psychiatric/Behavioral: Negative. Objective Vitals: 06/29/23 1435 BP: 128/80 Physical Exam Pulmonary: Effort: Pulmonary effort is normal. Neurological: Mental Status: He is alert. Psychiatric: Mood and Affect: Mood normal. Behavior: Behavior normal. Thought Content: Thought content normal. Judgment: Judgment normal. 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 Patient has been on dialysis since November of 2019, via left forearm AV fistula; he is anuric. orthotopic liver transplant on October 09, 2017 at the [facility]. 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 On immunosuppression with cyclosporine and CellCept currently, reports inability to tolerate tacrolimus secondary to neurotoxicity. Patient currently on entecavir daily, presumed received a hepatitis B core positive donor. 2 right heart catheterization as and a left heart catheterization in 2021 and 2022, he was told results were okay; undergoing evaluation also the [facility]. Diabetes mellitus type 2 for over 15 [...] 2020 Back surgery due to infection March 2020 And obesity here for chronic dz and weight mgmt eval. Needs to lose weight in order to qualify for kidney tx. S/p liver tx. Not good candidate for weightloss surgery, nor glps 2/2 h/o pancreatitis Does home hemo 4 dsys per week Dry weight is 127. Always report dry weight. Goal is 240-250? Bg - about 2 weeks ago bg went eleevated. So went on lantus 40 units at bedtime only and bg was running high during the day but then on Monday did 40 but 10 tid plus at bedtime. Wast told to stop humulin n. Call dr strong and let him know what you are doing and see if he wants you to to swtich. Could consider bid before breakfast and before dinner. Bg better however with weight loss. Start counting steps and discsuss next visit 1 week of food diaray Eneida Richardson MD documented in this encounter Plan of Treatment Not on file documented as of this encounter Visit Diagnoses Diagnosis Pre-transplant evaluation for kidney transplant documented in this encounter Additional Health Concerns Assessment Noted Time A fall risk assessment has been complete d for the patient 03/16/2023 2:05 PM EDT A Body Mass Index follow-up plan has been documented for the patient 07/09/2023 8:27 PM EST documented as of this encounter Care Teams Through Freight Engineer Relationship Specialty Start Date End Date Edgar Strong MD [address] [place] [id number] PCP - General 12/25/20 Enrique Griffith MD [address] [place] [address] Referring Physician Nephrology 01/08/21 documented as of this encounter
--- OUTSIDE RECORDS SUMMARY | 2024-07-12 13:04 | XMS_ITS | Encounter Summary ---
Author Organization [facility] Address [address] [place] [address] Care Team Providers Care Biostatistics Manager Name Role Phone Edgar Fournier MD Primary Care Provider [phone] Enrique Griffith MD Unavailable [phone] Reason for Visit * Reason Comments Weight Management * Consultation (Routine) - Closed Specialty Diagnoses / Procedures Referred By Declan hines Referred To Contact Internal Medicine Diagnoses Pre-transplant evaluation for kidney transplant Petrona Sheppard MD [address] [facility] [address] [place] [phone] Phone: tel: fax: [facility] [address] [phone] Phone: tel: fax: Referral ID Status Reason Start Date Expiration Date V isits Requested Visits Authorized [id number] Closed Specialty Services Required 03/24/2023 09/22/2024 1 1 Encounter Details Date Type Department Care Team (Late st Contact Info) Description 05/26/2023 11:00 AM EDT Office Visit [facility] [address] [phone] Eneida Richardson MD [address] [place] [address] Social History Tobacco Use Types [...] Sign Reading Time Taken Comments Blood Pressure 154/78 05/26/2023 10:43 AM EDT Pulse 87 05/26/2023 10:43 AM EDT Temperature - - Respiratory Rate - - Oxygen Saturation - - Inhaled Oxygen Concentration - - Weight 131 kg (289 lb 3.9 oz) 05/26/2023 10:43 A M EDT Height 175.3 cm (5' 9 ) 05/26/2023 10:43 AM EDT Body Mass Index 42.71 05/26/2023 10:43 AM EDT documented in this encounter Miscellaneous Notes * Progress Notes - Karli Low - 05/26/2023 11:00 AM EDT Patient said, he takes his bp medicine at 10:45 when he takes his rejection medicine. * Progress Notes - Eneida Richardson MD - 05/26/2023 11:00 AM EDT Subjective Aiden Stauffer Patient Verification Patient identity has been confirmed using name and date of ? Yes Authorizations and Agreements/Telemedicine Consent sent and consent confirmed? Yes Patient Location: Patient's Home Patient confirms they are physically located in [place]? Yes If the patient is not physically located in [place], the provider has confirmed with [facility] [employer] thatthe provider is authorized to provide [...] transplant on October 09, 2017 at the [facility]. 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 On immunosuppression with cyclosporine and CellCept currently, reports inability to tolerate tacrolimus secondary to neurotoxicity. Patient currently on entecavir daily, presumed received a hepatitis B core positive donor. 2 right heart catheterization as and a left heart catheterization in 2021 and 2022, he was told results were okay; undergoing evaluation also the [facility]. Diabetes mellitus type 2 for over 15 [...] weightloss surgery, nor glps 2/2 h/o pancreatitis States he gets constipated for 2-3 days and then has to take medicine to go and is afraid if he takes it every day he will get diarrhea. So could take every day but doesn't Home hemo off on Wednesdays and Monday/sun does mtrf does in the evening from from 6 pm for 3 hours 17 min No breakfast or lunch because had to go to [facility] for the vehicles Fruit - watermelon and melon honeydew [place] breast green [place] casserole candied yams dressing 2 yeast rolls cranberry sauce 7 up Monday No breakfast No lunch Baked fish and rice 7 up Monday Ham sandwich on honey wheat Pot pie 7 up Monday Hot dog on bun Chips Pork loin mac and cheese and green beans 7 up Monday Lunch hamburger on bun Grilled chicken sweret potato and bread 7 up Monday Ham and turkey sandwich on honey wheat Steak fajitas on corn tortillas 7 up 32 oz per day Meds - can't do glps 2/2 h/o pancreatitis, can't do phentermine 2/2 bp, wellbutrinno Naltrexoneno Topamax yes maybe? Plenity no 2/2 constipation Past Medical History: Diagnosis Date Allergic 02/23/2020 [...] by mouth 1 (one) time each day. Auryxia 1 GM 210 MG(Fe) tablet calcitriol (Rocaltrol) 0.25 MCG capsule Take by [...] WITH THE EVENING MEAL Continuous Blood Gluc Concrete Laborer (Dexcom G7 Concrete Laborer) device USE DIRECTED by Continuous Blood Gluc [...] Take every . ergocalciferol (ergocalciferol) 1.25 MG (46960 UT) capsule Take 1 capsule (50,000 Units) by mouth 3(three) times a week. folic acid (Folvite) 1 MG tablet Take 1 tablet (1,000 mcg) by mouth 1 (one) time each day. folic acid (Folvite) 1 MG tablet Take [...] 2 (two) times a day. promethazine (Phenergan) 25 MG tablet Take 1 [...] TAKE 2 Capsule by mouth twice daily carBAMazepine (TEGretol) 200 MG tablet Take 1 tablet (200 mg) by mouth 2 (two) times a day. (Patient not taking: Reported on 05/26/2023) fluticasone (Flonase) 50 MCG/ACT nasal spray [place] 2 spray nasALLY once a day as directed (Patient not taking: Reported on 05/26/2023) lisinopril 40 MG tablet Take 1 tablet (40 mg) by mouth 1 (one) time each day. (Patient not taking: Reported on 05/26/2023) promethazine (Phenergan) 12.5 MG tablet Take 1 tablet (12.5 mg) by mouth every 8 (eight) hours if needed for nausea or vomiting. (Patient not taking: Reported on 05/26/2023) temazepam (Restoril) 7.5 MG capsule Take 2 capsules (15 mg) by mouth 1 (one) time each day. (Patient not taking: Reported on 05/26/2023) traZODone (Desyrel) 50 MG tablet (Patient not taking: Reported on 05/09/2023) Vitamin D3 1.25 MG (82645 UT) capsule take 1 Capsule by mouth 3 times weekly zolpidem (Ambien) 5 MG tablet (Patient not taking: Reported on 05/09/2023) No current facility-administered medications on file prior to visit. Allergies Allergen Reactions Tacrolimus Other - please document in the comment field Anxious feeling and muscle jerking. TOLERATED ENVARSUS BETTER THAN PROGRAF. Codeine Anxiety Health Maintenance Due Topic Date Due [facility]-SDOH Screenings Never done [facility]-Medicare Annual Wellness (AWV) Never done Diabetes: Dental Exam Never done [facility]-DTaP,Tdap,and Td Vaccines (1 - [...] history, allergies, and medications Review of Systems Objective Vitals: 05/26/23 1043 BP: (!) 154/78 Pulse: 87 Physical Exam Assessment/Plan Problem List Items Addressed This Visit None 48 yo M with h/o end-stage renal disease due to diabetic and hypertensive nephropathy, as well as calcineurin inhibitor nephrotoxicity. Patient has been on dialysis since November of 2019, via left forearm AV fistula; he is anuric. orthotopic liver transplant on October 09, 2017 at the [facility]. 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 On immunosuppression with cyclosporine and CellCept currently, reports inability to tolerate tacrolimus secondary to neurotoxicity. Patient currently on entecavir daily, presumed received a hepatitis B core positive donor. 2 right heart catheterization as and a left heart catheterization in 2021 and 2022, he was told results were okay; undergoing evaluation also the [facility]. Diabetes mellitus type 2 for over 15 [...] weightloss surgery, nor glps 2/2 h/o pancreatitis States he gets constipated for 2-3 days and then has to take medicine to go and is afraid if he takes it every day he will get diarrhea. So could take every day but doesn't Meds - can't do glps 2/2 h/o pancreatitis, can't do phentermine 2/2 bp, wellbutrinno Naltrexoneno Topamax yes maybe? Plenity no 2/2 constipation <=12 oz of sugary drinks Pay attn to bg 2 1/2 cups per day of low k f or v Careful of na Avoid processed meats Eneida Richardson MD documented in this encounter [...] documented as of this encounter Care Teams Biostatistics Manager Relationship Specialty Start Date End Date Edgar Fournier MD [address] [place] [id number] PCP - General 12/25/20 Enrique Griffith MD [address] [place] [address] Referring Physician Nephrology 01/08/21 documented as of this encounter
--- OUTSIDE RECORDS SUMMARY | 2024-07-12 13:04 | XMS_ITS | Encounter Summary ---
Author Organization [facility] Address [address] [place] [address] Care Team Providers Care Credit Historian Name Role Phone Edgar Fournier MD Primary Care Provider [phone] Enrique Griffith MD Unavailable [phone] Reason for Visit * Consultation (Routine) - Closed Specialty Diagnoses / Procedures Referred By Declan hines Referred To Contact Transplant Diagnoses End stage renal disease (CMS/HCC) Petrona Sheppard MD [address] [address] Phone: tel: fax: [facility] [address] [address] Phone: tel: fax: Referral ID Status Reason Start Date Expiration Date V isits Requested Visits Authorized [id number] Closed Specialty Services Required 04/05/2022 10/05/2023 1 1 Encounter Details Date Type Department Care Team (Late st Contact Info) Description 03/16/2023 2:20 PM EDT Office Visit [facility] [address] [address] Antione Romano CRISTI [address] [place] [address] Pre-transplant evaluation for kidney transplant (Primary Dx); End stage renal disease (CMS/HCC); Liver replaced by transplant (CMS/HCC); Class 3 severe obesity due to excess calories without serious comorbidity with body mass index (BMI) of 40.0 to 44.9 in adult (CMS/HCC); Hypertension secondary to other renal disorders Social History Tobacco Use Types Packs/Day Years [...] Sign Reading Time Taken Comments Blood Pressure 128/79 03/16/2023 2:02 PM EDT Pulse 86 03/16/2023 2:02 PM EDT Temperature 37 ??C (98.6 ??F) 03/16/2023 2:02 PM EDT Respiratory Rate - - Oxygen Saturation 97% 03/16/2023 2:02 PM EDT Inhaled Oxygen Concentration - - Weight 135 kg (296 lb 15.4 oz) 03/16/2023 2:02 P M EDT Height 175.3 cm (5' 9 ) 03/16/2023 2:02 PM EDT Body Mass Index 43.85 03/16/2023 2:02 PM EDT documented in this encounter Miscellaneous Notes * Progress Notes - Antione Romano APRN - 03/16/2023 2:20 PM EDT ANNUAL PRE-KIDNEY TRANSPLANT CLINIC FOLLOW-UP Today I had the pleasure of seeing Aiden Stauffer, 1975, for the annual pre-kidney transplant clinic follow-up. Aiden Stauffer is a pleasant 48 y.o. white male, accompanied today by his , with end-stage renal disease due to diabetic and hypertensive nephropathy, as well as calcineurin inhibitor nephrotoxicity. Patient has been on dialysis since November of 2019, via left forearm AV fistula; he is anuric. Of note, patient is hard of hearing. Patient underwent a orthotopic liver transplant on October 09, 2017 at the [facility]. 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 On immunosuppression with cyclosporine and CellCept currently, reports inability to tolerate tacrolimus secondary to neurotoxicity. Patient currently on entecavir daily, presumed received a hepatitis B core positive donor. Reports has had 2 right heart catheterization as and a left heart catheterization in 2021 and 2022,he was told results were okay; undergoing evaluation also the [facility]. Patient was last seen at a Kidney Transplant Clinic back in January 28, 2021, at that visit his weightwas 113 kg, 248 lb, with a calculated BMI 37.7. Today's weight is up to 135 kg, 296 lb with a BMI 43.8. States has been tried on weight loss medications/diabetic but has not been able to tolerate due to severe diarrhea. Denies any tobacco, alcohol or recreation drug use. PAST MEDICAL HISTORY: End-stage renal disease due to diabetic and hypertensive nephropathy, as well as calcineurin inhibitor nephrotoxicity, on dialysis since November 2019. Diabetes mellitus type 2 for over 15 years Diabetic neuropathy and retinopathy insulin-dependent Hypertension for over 5 years Hyper lipidemia Kim cirrhosis status post liver transplant September 2017 Anemia chronic kidney disease Obesity class 3 BMI of 43.8 Obstructive sleep apnea no longer using CPAP Acute pancreatitis GERD Chronic pain Cholelithiasis BPH Pneumonia Nephrolithiasis Blood transfusion 2016 and 2019 Hard of hearing PAST SURGICAL HISTORY: Liver transplant October 09, 2017 Tips placement 2017 Esophageal varices banding Left Fracture leg with hardware placement December 2020 Back surgery due to infection March 20202019 Review of Systems: A 14 point ROS was reviewed and negative except as noted: See history of present illness. Body mass index is 43.85 kg/m??. Wt Readings from Last 2 Encounters: 03/16/23 135 kg (296 lb 15.4 oz) 11/08/21 135 kg (297 lb 6.4 oz) Vitals: 03/16/23 1402 BP: 128/79 Pulse: 86 Temp: 37 ??C (98.6 ??F) SpO2: 97% PAST MEDICAL HISTORY Past Medical History: Diagnosis Date Anemia Chronic kidney disease Conversions - Other Anemia Conversions - Other Benign Prostatic Hypertrophy Conversions - Other Cirrhosis Conversions - Other Diabetes Mellitus Diabetes mellitus type 2 Fatty (change of) liver, not elsewhere classified 10/25/2012 Hematochezia Hypertension Liver cirrhosis secondary to KIM (nonalcoholic steatohepatitis) (CMS/HCC) Neuropathy Obesity Retinopathy PAST MEDICAL HISTORY Past Surgical History: Procedure Laterality Date BACK SURGERY CHOLECYSTECTOMY LIVER TRANSPLANTATION 2018 OTHER SURGICAL HISTORY N/A History Of Prior Surgery from [facility] TRE[facility]MENT, LOWER LEG FRACTURE FAMILY MEDICAL HISTORY Family History Problem Relation Name Age of Onset Alcohol abuse Sister Alcohol abuse Father Alcohol abuse Father's Brother Cancer Father Cirrhosis Sister Diabetes Sister Diabetes Mother SOCIAL HISTORY Social History Socioeconomic History Marital status: Spouse name: Not on file Number of children: Not on file Years of education: Not on file Highest education level: Not on file Occupational History Not on file Tobacco Use Smoking status: Never Smokeless tobacco: Never Substance and Sexual Activity Alcohol use: No Comment: Alcoholic Drinks/day: Never Drank Alcohol Drug use: Yes Comment: Drug use: Drug Use Sexual activity: Not on file Other Topics Concern Not on file Social History Narrative Unemployed Social Determinants of Health Financial Resource Strain: Not on file Food Insecurity: Not on file Transportation Needs: Not on file Physical Activity: Not on file Stress: Not on file Social Connections: Not on file Intimate Partner Violence: Not on file Housing Stability: Not on file Current Outpatient Medications Medication Instructions aspirin 81 mg, Oral, Daily Calcium Acetate 667 MG tablet 4 tablets, Oral, 3 times daily with meals carBAMazepine (TEGRETOL) 200 mg, Oral, 2 times daily cycloSPORINE modified (GENGRAF) 100 mg, Oral, 2 times daily doxazosin (CARDURA) 8 mg, Oral, Nightly entecavir (BARACLUDE) 0.5 mg, Oral, Weekly, Take every . ergocalciferol (VITAMIN D-2) 50,000 Units, Oral, 3 times weekly gabapentin (NEURONTIN) 400 mg, Oral, Every other day hydrALAZINE (APRESOLINE) 100 mg, Oral, 3 times daily, Twice daily always. Midday dose as needed. lisinopril 40 mg, Oral, Daily mycophenolate (CELLCEPT) 250 mg, Oral, 2 times daily NIFEdipine XL (Procardia XL) 90 MG 24 hr tablet 1 tablet, Oral, 2 times daily pantoprazole (PROTONIX) 40 mg, Oral, 2 times daily promethazine (PHENERGAN) 12.5 mg, Oral, Every 8 hours PRN sevelamer carbonate (RENVELA) 1,600 mg, Oral, 3 times daily with meals, Swallow tablet whole; do not crush, break, or chew. testosterone cypionate (DEPO-TESTOSTERONE) 200 mg, Intramuscular, Every 28 days Allergies Allergen Reactions Tacrolimus Other Anxious feeling and muscle jerking. TOLERATED ENVARSUS BETTER THAN PROGRAF. Codeine Anxiety PHYSICAL EXAM Vital signs reviewed GENERAL: Appears stated age, NAD, able to get on and off of the exam table slowly without any assistance, obese. EYES: EOMI No scleral icterus or conjunctivitis HENT: No lesions in anterior nares; no lesions in oropharynx, head atraumatic and normocephalic. Nothrush NECK: Supple. No thyromegaly or adenopathy. No JVD noted. The trachea appears midline. RESP: Symmetric expansion; no retractions. Clear to auscultation bilaterally. CARD: S1, S2, RRR, without murmur, rubs, or gallop. dorsalis pedis pulses bilaterally EXTREMITIES: B lower extremity edema. GI: No organomegaly or masses. Nontender, nondistended. BS present x 4 quadrants. ABDOMINAL: Large abdominal girth with a large overhanging panniculus SKIN: No rash, sores, lesions or subcutaneous nodules. SURGICAL INCISIONS: Previous hockey J stick liver transplant incision well-healed NEURO: Awake, alert and oriented, moves all extremities, grossly intact PSYCH: Pleasant and appropriate. ACCESS: left forearm AV fistula with a positive thrill and bruit ASSESSMENT AND PLAN: In summary, Aiden Stauffer is a pleasant 48 y.o. white male, accompanied today by his , with end-stage renal disease due to diabetic and hypertensive nephropathy, as well as calcineurin inhibitor nephrotoxicity. Patient has been on dialysis since November of 2019, via left forearm AV fistula; he is anuric. Of note, patient is hard of hearing. Patient underwent a orthotopic liver transplant on October 09, 2017 at the [facility]. 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 On immunosuppression with cyclosporine and CellCept currently, reports inability to tolerate tacrolimus secondary to neurotoxicity. Patient currently on entecavir daily, presumed received a hepatitis B core positive donor. Reports has had 2 right heart catheterization as and a left heart catheterization in 2021 and 2022,he was told results were okay; undergoing evaluation also the [facility]. -Obesity class 3 BMI of 43.8: Patient was last seen at a Kidney Transplant Clinic back in January 28, 2021, at that visit his weight was 113 kg, 248 lb, with a calculated BMI 37.7. Today's weight is up to 135 kg, 296 lb with a BMI 43.8. Body habitus prohibitive for kidney transplant consideration. has been tried on weight loss medications/diabetic but has not been able to tolerate due to severe diarrhea. [facility] was told by liver transplant surgeon that gastric sleeve was not recommended. Refer to Dr. Richradson for weight loss management. -He has no living donor possibilities Again, I discussed with patient about the necessity of long-term immune suppression and expected results from surgical procedure as well as intra- operative and post-operative risks and possible complications. I also reviewed alternative treatments, psychosocial risks, and surgical risks with the patient. I encouraged the patient to find possible live donor candidates and stressed the advantage oflive donor transplantation. Other non-transplant options were discussed with the patient as well. Aiden Stauffer will be discussed at our weekly patient selection committee meeting where a decision will be made regarding listing and any other studies that will be done to complete the evaluation. Thank you for the opportunity to care for this pleasant patient. Please do not hesitate to contact our transplant program. Thank you for your continued support of the [facility]. Sincerely, Anitone Romano APRN Transplant Surgery documented in this encounter Plan of Treatment Not on file documented as of this encounter Visit Diagnoses Diagnosis Pre-transplant evaluation for kidney transplant- Primary End stage renal disease (CMS/HCC) End stage renal disease Liver replaced by transplant (CMS/HCC) Liver replaced by transplant Class 3 severe obesity due to excess calories without serious comorbidity with body mass index (BMI) of 40.0 to 44.9 in adult (CMS/HCC) Hypertension secondary to other renal disorders documented in this encounter Additional Health Concerns Assessment Noted Time A fall risk assessment has been complete d for the patient 03/16/2023 2:05 PM EDT A Body Mass Index follow-up plan has been documented for the patient 03/20/2023 6:25 AM EDT documented as of this encounter Care Teams Credit Historian Relationship Specialty Start Date End Date Edgar Fournier MD [address] [place] [address] PCP - General 12/25/20 Enrique Griffith MD [address] [place] [address] Referring Physician Nephrology 01/08/21 documented as of this encounter
--- OUTSIDE RECORDS SUMMARY | 2024-07-12 13:04 | XMS_ITS | Encounter Summary ---
Author Organization [facility] Address [address] [id number] Care Team Providers Care De Icer Installer Name Role Phone Edgar Fournier MD Primary Care Provider [phone] Enrique Griffith MD Unavailable [phone] Encounter Details Date Type Department Care Team (Late st Contact Info) Description 08/12/2022 Telephone [facility] [address] [facility] [address] [place] [phone] Zion Virgen RN HOSPITAL KIDNEY [id number] [address] [phone] Social History Tobacco Use Types Packs/Day Years [...] Telephone Encounter - Zion Virgen RN - 08/12/2022 11:34 AM EST Attempted to contact patient no answer left VM documented in this encounter Plan of Treatment Not on file documented as of this encounter Visit Diagnoses Not on filedocumented in this encounter Care Teams De Icer Installer Relationship Specialty Start Date End Date Edgar Fournier MD [address] [place] [address] PCP - General 12/25/20 Enrique Griffith MD [address] [place] [address] Referring Physician Nephrology 01/08/21 documented as of this encounter
--- OUTSIDE RECORDS SUMMARY | 2024-07-12 13:04 | XMS_ITS | Encounter Summary ---
Author Organization [facility] Address [address] [place] [address] Care Team Providers Care Senior Government Program Analyst Name Role Phone Edgar Fournier MD Primary Care Provider [phone] Enrique Griffith MD Unavailable [phone] Encounter Details Date Type Department Care Team (Latest Contact Info) Description 06/29/2023 Travel Social History Tobacco Use Types Packs/Day Years Used Date Smoking Tobacco: Every Day Smokeless Tobacco: Never Alcohol Use Standard Drinks/Week [...] as of this encounter Care Teams Senior Government Program Analyst Relationship Specialty Start Date End Date Edgar Fournier MD [address] [place] [address] PCP - General 12/25/20 Enrique Griffith MD [address] [place] [address] Referring Physician Nephrology 01/08/21 documented as of this encounter
--- OUTSIDE RECORDS SUMMARY | 2024-07-12 13:04 | XMS_ITS | Encounter Summary ---
Author Organization [facility] Address [address] [place] [address] Care Team Providers Care Fence Repairman Name Role Phone Edgar Fournier MD Primary Care Provider [phone] Enrique Griffith MD Unavailable [phone] Encounter Details Date Type Department Care Team (Latest Contact Info) Description 06/11/2023 Travel Social History Tobacco Use Types Packs/Day [...] Date End Date Edgar Fournier MD [address] [place] [address] PCP - General 12/25/20 Enrique Griffith MD [address] [place] [address] Referring Physician Nephrology 01/08/21 documented as of this encounter
--- OUTSIDE RECORDS SUMMARY | 2024-07-12 13:04 | XMS_ITS | Encounter Summary ---
Author Organization [facility] Address [address] [place] [address] Care Team Providers Care Developmental Services Worker Name Role Phone Edgar Fournier MD Primary Care Provider [phone] Enrique Griffith MD Unavailable [phone] Reason for Visit * Reason Comments Appointment Pre kidney annaul Encounter Details Date Type Department Care Team (Late st Contact Info) Description 06/22/2022 Telephone [facility] [address] [facility] [address] [place] [phone] Shaji Roman Transplant [address] [place] [phone] Appointment (Pre kidney annaul) Social History Tobacco Use Types Packs/Day Years [...] * Telephone Encounter - Shaji Roman - 06/22/2022 2:10 PM EST Called all numbers in chart to try to confirm pre kidney annual. Spoke with patients son and he said that he will pass along the message to return my call. Was able to leave VM on home phone. Will look out for returned call. documented in this encounter Plan of Treatment Not on file documented as of this encounter Visit Diagnoses Not on filedocumented in this encounter Care Teams Developmental Services Worker Relationship Specialty Start Date End Date Edgar Fournier MD [address] [place] [address] PCP - General 12/25/20 Enrique Griffith MD [address] [place] [phone] Referring Physician Nephrology 01/08/21 documented as of this encounter
--- OUTSIDE RECORDS SUMMARY | 2024-07-12 13:04 | XMS_ITS | Encounter Summary ---
Author Organization [facility] Address [address] [id number] Care Team Providers Care Senior Technical Manager Name Role Phone Edgar Fournier MD Primary Care Provider [phone] Enrique Griffith MD Unavailable [phone] Encounter Details Date Type Department Care Team (Late st Contact Info) Description 02/13/2023 Telephone [facility] [address] [facility] [address] [place] [phone] Zion Virgen RN HOSPITAL KIDNEY [id number] [address] [phone] Social History Tobacco Use Types Packs/Day Years [...] Encounter - Zion Virgen RN - 02/13/2023 10:41 AM EDT Called patient to ask after GI follow up since most recent admission. Per patient he has not yet seen GI but is awaiting appointment to be scheduled through . Patient amenable to r/s annual appointment visit. Patient states he was told by cardiology at to have transplant contact them. Upon further clarification it sounds like patient is trying to get clearance from cardiology for listing with and that we would be able to call and get clearance from them as well. Upon chart review it would seem that patient is currently following cardiology at but has not yet been cleared. Message to DL to r/s appointments. documented in this encounter Plan of Treatment Not on file documented as of this encounter Visit Diagnoses Not on filedocumented in this encounter Care Teams Senior Technical Manager Relationship Specialty Start Date End Date Edgar Fournier MD [address] [place] [address] PCP - General 12/25/20 Enrique Griffith MD [address] [place] [address] Referring Physician Nephrology 01/08/21 documented as of this encounter
--- OUTSIDE RECORDS SUMMARY | 2024-07-12 13:04 | XMS_ITS | Encounter Summary ---
Author Organization [facility] Address [address] [place] [address] Care Team Providers Care Nurse Practical Name Role Phone Edgar Fournier MD Primary Care Provider [phone] Enrique Griffith MD Unavailable [phone] Encounter Details Date Type Department Care Team (Late st Contact Info) Description 02/06/2023 Telephone [facility] [address] [facility] [address] [place] [phone] Estephania Dalal - [address] [place] [address] Social History Tobacco Use Types Packs/Day Years [...] Miscellaneous Notes * Telephone Encounter - Estephania Dalal CNA - 02/06/2023 3:29 PM EDT Per [facility] Appointment Scheduler, this patient is now receiving home dialysis through [facility]. Thanks! documented in this encounter Plan of Treatment Not on file documented as of this encounter Visit Diagnoses Not on filedocumented in this encounter Care Teams Nurse Practical Relationship Specialty Start Date End Date Edgar Fournier MD [address] [place] [address] PCP - General 12/25/20 Enrique Griffith MD [address] [place] [phone] Referring Physician Nephrology 01/08/21 documented as of this encounter
--- OUTSIDE RECORDS SUMMARY | 2024-07-12 13:04 | XMS_ITS | Encounter Summary ---
Author Organization [facility] Address [address] [phone] Care Team Providers Care Cracking Unit Operator Name Role Phone Edgar Fournier MD Primary Care Provider [phone] Enrique Griffith MD Unavailable [phone] Encounter Details Date Type Department Care Team (Late st Contact Info) Description 12/14/[address] [facility] [address] [facility] [address] [place] [phone] Zion Virgen RN HOSPITAL KIDNEY [id number] [address] [phone] Social History Tobacco Use Types Packs/Day Years [...] Telephone Encounter - Zion Virgen RN - 12/14/2022 3:05 PM EDT Received call from patient asking after what he has left to do to get on list. Coordinator stated that after upcoming annual appointment if surgeon clears him and testing is ok then he should be cleared for active listing patient states that he'd had testing done recently at and asked if he would need to repeat this, coordinator stated that he would review and let patient know if echo and stress can be cancelled as it appears he had an echo and heart cath performed. Patient verbalized understanding, denies further needs at present. documented in this encounter Plan of Treatment Not on file documented as of this encounter Visit Diagnoses Not on filedocumented in this encounter Care Teams Cracking Unit Operator Relationship Specialty Start Date End Date Edgar Fournier MD [address] [place] [address] PCP - General 12/25/20 Enrique Griffith MD [address] [place] [phone] Referring Physician Nephrology 01/08/21 documented as of this encounter
--- OUTSIDE RECORDS SUMMARY | 2024-07-12 13:04 | XMS_ITS | Encounter Summary ---
Author Organization [facility] Address [address] [id number] Care Team Providers Care Carton Waxing Machine Operator Name Role Phone Edgar Fournier MD Primary Care Provider [phone] Enrique Griffith MD Unavailable [phone] Encounter Details Date Type Department Care Team (Late st Contact Info) Description 10/20/2022 Telephone [facility] [address] [facility] [address] [place] [phone] Zion Virgen RN HOSPITAL KIDNEY [id number] [address] [phone] Social History Tobacco Use Types Packs/Day Years [...] Encounter - Zion Virgen RN - 10/20/2022 11:33 AM EST Received message from that patient has not arrived for appointment attempted to call patient, bharati, left VM documented in this encounter Plan of Treatment Not on file documented as of this encounter Visit Diagnoses Not on filedocumented in this encounter Care Teams Carton Waxing Machine Operator Relationship Specialty Start Date End Date Edgar Fournier MD [address] [place] [address] PCP - General 12/25/20 Enrique Griffith MD [address] [place] [address] Referring Physician Nephrology 01/08/21 documented as of this encounter
--- OUTSIDE RECORDS SUMMARY | 2024-07-12 13:04 | XMS_ITS | Encounter Summary ---
Author Organization [facility] Address [address] [id number] Care Team Providers Care Development Architect Name Role Phone Edgar Fournier MD Primary Care Provider [phone] Enrique Griffith MD Unavailable [phone] Reason for Visit * Reason Comments Appointment Confirmed annual (SW /Lab/Pano/SG) on: 10/20/22 Encounter Details Date Type Department Care Team (Late st Contact Info) Description 08/16/2022 Telephone [facility] [address] [facility] [address] [place] [phone] Eleanor Montoya [address] [phone] Appointment (Confirmed annual (SW/Lab/Pano/SG) on: 10/20/22) Social History Tobacco Use Types Packs/Day Years [...] * Telephone Encounter - Eleanor Montoya - 08/16/2022 3:40 PM EST Pt booked for next available Thur w/SW on: ., 10/20/22. Called and spoke with pt, confirmed SW/lab/Pano/SG visit on: ., 10/20/22, reg @1040 in txp clinic, pt advised to bring support person for SW and will follow up on annual questionnaire. Pt confirmedappt date/time, no changes to mailing address. Per Wilfrido pt annual visit, will need questionnaire. Note to Wilfrido of confirmation. Mailed 10/20/22 annual appt letter, schedule, annual questionnaire and maps to pt. documented in this encounter Plan of Treatment Not on file documented as of this encounter Visit Diagnoses Not on filedocumented in this encounter Care Teams Development Architect Relationship Specialty Start Date End Date Edgar Fournier MD [address] [place] [address] PCP - General 12/25/20 Enrique Griffith MD [address] [place] [phone] Referring Physician Nephrology 01/08/21 documented as of this encounter
--- OUTSIDE RECORDS SUMMARY | 2024-07-12 13:04 | XMS_ITS | Encounter Summary ---
Author Organization [facility] Address [address] [id number] Care Team Providers Care Time Motion Analyst Name Role Phone Edgar Fournier MD Primary Care Provider [phone] Enrique Griffith MD Unavailable [phone] Encounter Details Date Type Department Care Team (Late st Contact Info) Description 07/26/2022 Telephone [facility] [address] [facility] [address] [place] [phone] Zion Virgen RN [facility] [id number] [address] [phone] Social History Tobacco Use Types Packs/Day Years [...] Telephone Encounter - Zion Virgen RN - 07/26/2022 2:06 PM EST Attempted to contact patient, no answer, left VM documented in this encounter Plan of Treatment Not on file documented as of this encounter Visit Diagnoses Not on filedocumented in this encounter Care Teams Time Motion Analyst Relationship Specialty Start Date End Date Edgar Fournier MD [address] [place] [address] PCP - General 12/25/20 Enrique Griffith MD [address] [place] [address] Referring Physician Nephrology 01/08/21 documented as of this encounter
--- OUTSIDE RECORDS SUMMARY | 2024-07-12 13:05 | XMS_ITS | Encounter Summary ---
Author Organization [facility] Address [address] [id number] Care Team Providers Care Firer Automatic Stoker Name Role Phone Edgar Fournier MD Primary Care Provider [phone] Enrique Griffith MD Unavailable [phone] Encounter Details Date Type Department Care Team (Late st Contact Info) Description 11/29/2021 Telephone [facility] [address] [facility] [address] [place] [phone] Zion Virgen, RN HOSPITAL KIDNEY [id number] [address] [phone] Social History Tobacco Use Types Packs/Day Years [...] Orientation Straight 03/02/2021 10 :04 AM EDT COVID-19 Exposure Response Date Recorded In the last month, have you been in contact with someone who was confirmed or suspected to have Coronavirus / COVID-19? No / Unsure 11/08/2021 3:41 AM EDT documented as of this encounter Miscellaneous Notes * Telephone Encounter - Zion Virgen RN - 11/29/2021 2:33 PM EDT Attempted to call patient, no option to leave VM documented in this encounter Plan of Treatment Not on file documented as of this encounter Visit Diagnoses Not on filedocumented in this encounter Care Teams Firer Automatic Stoker Relationship Specialty Start Date End Date Edgar Fournier MD [address] [place] [address] PCP - General 12/25/20 Enrique Griffith MD [address] [place] [address] Referring Physician Nephrology 01/08/21 documented as of this encounter
--- OUTSIDE RECORDS SUMMARY | 2024-07-12 13:05 | XMS_ITS | Encounter Summary ---
Author Organization [facility] Address [address] [place] [address] Care Team Providers Care Marketing/Sales Person Name Role Phone Edgar Fournier MD Primary Care Provider [phone] Enrique Griffith MD Unavailable [phone] Encounter Details Date Type Department Care Team (Late st Contact Info) Description 02/11/2022 Telephone [facility] [address] [facility] [address] [place] [phone] Armani Dawson Social History Tobacco Use Types [...] Miscellaneous Notes * Telephone Encounter - Armani Woodward - 02/11/2022 8:35 AM EDT Quarterly dialysis request report faxed to patient's reported dialysis center. documented in this encounter Plan of Treatment Not on file documented as of this encounter Visit Diagnoses Not on filedocumented in this encounter Care Teams Marketing/Sales Person Relationship Specialty Start Date End Date Edgar Fournier MD [address] [place] [address] PCP - General 12/25/20 Enrique Griffith MD [address] [place] [phone] Referring Physician Nephrology 01/08/21 documented as of this encounter
--- OUTSIDE RECORDS SUMMARY | 2024-07-12 13:05 | XMS_ITS | Encounter Summary ---
Author Organization [facility] Address [address] [id number] Care Team Providers Care Vest Maker Name Role Phone Edgar Fournier MD Primary Care Provider [phone] Enrique Griffith MD Unavailable [phone] Encounter Details Date Type Department Care Team (Late st Contact Info) Description 06/18/2021 Telephone [facility] [address] [facility] [address] [place] [phone] Zion Virgen, RN HOSPITAL KIDNEY [id number] [address] [phone] Social History Tobacco Use Types Packs/Day Years [...] have Coronavirus / COVID-19? No / Unsure 06/10/2021 2:06 PM EDT documented as of this encounter Miscellaneous Notes * Telephone Encounter - Zion Virgen RN - 06/18/2021 3:28 PM EDT Patient returned call, asked patient about weight loss progress, patient stated that his weight is actually up, per patient he has a hernia which has worsened, and they're unable to pull all his fluid off at dialysis as his pain increases as their pulling fluid off. Patient states that he goes to see [facility] transplant this Monday and is supposed to get a call from surgeon on Monday to schedule appointment for possible hernia repair. Patient states he will let coordinator know when these take place and what the plan will be. documented in this encounter Plan of Treatment Not on file documented as of this encounter Visit Diagnoses Not on filedocumented in this encounter Care Teams Vest Maker Relationship Specialty Start Date End Date Edgar Fournier MD [address] [place] [address] PCP - General 12/25/20 Enrique Griffith MD [address] [place] [phone] Referring Physician Nephrology 01/08/21 documented as of this encounter
--- OUTSIDE RECORDS SUMMARY | 2024-07-12 13:05 | XMS_ITS | Encounter Summary ---
Author Organization [facility] Address [address] [place] [address] Care Team Providers Care Head Of Biology Name Role Phone Edgar Fournier MD Primary Care Provider [phone] Enrique Griffith MD Unavailable [phone] Encounter Details Date Type Department Care Team (Late st Contact Info) Description 03/14/2022 Telephone [facility] [address] [place] [phone] Kylee Herrera, RN GS - Emergency Room [...] on filedocumented in this encounter Care Teams Head Of Biology Relationship Specialty Start Date End Date Edgar Fournier MD [facility] [place] [address] PCP - General 12/25/20 Enrique Griffith MD [address] [place] [address] Referring Physician Nephrology 01/08/21 documented as of this encounter
--- OUTSIDE RECORDS SUMMARY | 2024-07-12 13:05 | XMS_ITS | Encounter Summary ---
Author Organization [facility] Address [address] [place] [address] Care Team Providers Care Ux Developer Name Role Phone Edgar Fournier MD Primary Care Provider [phone] Enrique Griffith MD Unavailable [phone] Reason for Visit * Reason Comments Stroke Alert Red * Auth/Cert Specialty Diagnoses / Procedures Referred By Declan hines Referred To Contact Diagnoses Hyperkalemia Possible Stroke Roberta Fleming MD [address] [place] [address] Phone: tel: fax: [facility] [address] [place] [address] Phone: tel: Referral ID Status Reason Start Date Expiration Date Visits Re quested Visits Authorized [id number] 1 1 Encounter Details Date Type Department Care Team (Latest Contact Info) Description 11/08/2021 3:09 AM EDT - 11/09/2021 7:31 PM EDT Hospital Encounter [facility] [address] [place] [address] Bailey Leonardo MD [address] [place] [address] Roberta Fleming MD [address] [place] [address] Ale Cavazos MD [address] [place] [address] Nani Evans MD [address] [place] [address] Asterixis (Primary Dx) Discharge Disposition: Left Against Medical Advice Social [...] Sign Reading Time Taken Comments Blood Pressure 185/83 11/09/2021 7:25 PM EDT discussed risks of elevated bp with patient. he declined to stay and stated he will take his medications at home Pulse 75 11/09/2021 7:25 PM EDT Temperature 36.7 ??C (98 ??F) 11/09/2021 7:2 5 PM EDT Respiratory Rate 16 11/09/2021 4:50 PM EDT Oxygen Saturation 95% 11/09/2021 11: 44 AM EDT Inhaled Oxygen Concentration - - Weight 135 kg (297 lb 6.4 oz) 11/08/2021 3:38 AM EDT Height 175.3 cm (5' 9 ) 11/08/2021 3:38 AM EDT Body Mass Index 43.92 11/08/2021 3:38 AM EDT documented in this encounter Medications at Time of Discharge aspirin 81 MG EC tablet Take 1 [...] Take every . ergocalciferol (ergocalciferol) 1.25 MG (66926 UT) capsule Take 1 capsule (50,000 Units) by mouth 3 (three) times a week. gabapentin (Neurontin) 800 MG tablet Take 0.5 tablets (400 mg) by mouth every other day. hydrALAZINE (Apresoline) 100 MG tablet Take 1 tablet (100 mg) by mouth 3 (three) times a day. Twice daily always. Midday dose as needed. mycophenolate (Cellcept) 250 MG capsule Take 1 [...] not crush, break, or chew. testosterone cypionate (Depo-Testostero ne) 200 MG/ML injection Inject 1 mL (200 mg) into the muscle every 28 (twenty-eight) days. ALPRAZolam (Xanax) 0.5 MG tablet Take 0.5 mg by mouth at night if needed for anxiety. 03/20/2023 fenofibrate micronized (Lofibra) 134 MG capsule Take 134 mg by mouth 1 (one) time each day. 03/20/2023 Icosapent Ethyl (Vascepa) 1 g capsule Take 2 g by mouth 2 (two) times a day with meals. 03/20/2023 Melatonin 5 MG tablet tablet Take 10 mg by mouth every night. 03/20/2023 methocarbamol (Robaxin) 500 MG tablet Take 500 mg by mouth 4 (four) times a day if needed for muscle spasms. 03/20/2023 metoprolol succinate XL (Toprol-XL) 100 MG 24 hr tablet Take 1 tablet by mouth 1 (one) time each day. 03/20/2023 documented as of this encounter Miscellaneous Notes * Progress Notes - Nani Evans MD - 11/09/2021 3:05 PM EDT Subjective Patient seen and examined during morning rounds Complaining of a productive cough of thick sputum Tightness and wheezing in his chest Review of Systems Constitutional: Positive for fatigue. Respiratory: Positive for cough, chest tightness and wheezing. All other systems reviewed and are negative. Objective: Exam Visit Vitals BP 173/78 Pulse 75 Temp 36.5 ??C (97.7 ??F) (Oral) Resp 16 Ht 1.753 m (5' 9 ) Wt 135 kg (297 lb 6.4 oz) SpO2 95% BMI 43.92 kg/m?? Smoking Status Never Smoker BSA 2.56 m?? Physical Exam Vitals and nursing note reviewed. Constitutional: Appearance: Normal appearance. He is well-developed. He is obese. HENT: Head: Normocephalic and atraumatic. Right Ear: External ear normal. Left Ear: External ear normal. Nose: Nose normal. Mouth/Throat: Mouth: Mucous membranes are moist. Pharynx: Oropharynx is clear. Eyes: General: No scleral icterus. Conjunctiva/sclera: Conjunctivae normal. Neck: Thyroid: No thyromegaly. Vascular: No JVD. Cardiovascular: Rate and Rhythm: Normal rate and regular rhythm. Pulmonary: Effort: Pulmonary effort is normal. Breath sounds: Wheezing present. Abdominal: General: There is no distension. Palpations: Abdomen is soft. There is no mass. Tenderness: There is no abdominal tenderness. There is no guarding. Hernia: No hernia is present. Musculoskeletal: General: Normal range of motion. Cervical back: Neck supple. Right lower leg: No edema. Left lower leg: No edema. Lymphadenopathy: Cervical: No cervical adenopathy. Skin: General: Skin is warm. Coloration: Skin is not jaundiced or pale. Neurological: General: No focal deficit present. Mental Status: He is alert and oriented to person, place, and time. Gait: Gait normal. Psychiatric: Mood and Affect: Mood normal. Behavior: Behavior normal. Judgment: Judgment normal. Labs Results from last 7 days Lab Units 11/08/21 0310 WBC 10*3/uL 10.10 HEMOGLOBIN g/dL 10.1* HEMATOCRIT % 32.1* PLATELETS 10*3/uL 321 MCV fL 107* NEUTROS ABS 10*3/uL 4.73 Results from last 7 days Lab Units 11/09/21 0232 11/08/21 1305 11/08/21 0656 11/08/21 0539 11/08/21 0539 11/08/21 0359 11/08/21 0317 11/08/21 0310 SODIUM mmol/L 136 -- -- -- 136 -- -- 141 SODIUM, SYRINGE mmol/L -- -- -- -- -- -- 141 -- POTASSIUM mmol/L 6.4* 5.4* 6.9* < > 7.8* < > -- 7.7* CHLORIDE mmol/L 97 -- -- -- 97 -- -- 100 CO2 mmol/L 24 -- -- -- 23 -- -- 24 BUN mg/dL 58* -- -- -- 80* -- -- 79* CREATININE mg/dL 9.04* -- -- -- 10.69* -- -- 10.32* CALCIUM mg/dL 7.9* -- -- -- 8.7* -- -- 8.9 AST U/L -- -- -- -- 16 -- -- 16 ALT U/L -- -- -- -- 7* -- -- 9* ALKALINE PHOSPHATASE U/L -- -- -- -- 117* -- -- 124* BILIRUBIN TOTAL mg/dL -- -- -- -- 0.3 -- -- 0.3 < > = values in this interval not displayed. Labs personally reviewed, notable for hyperkalemia Imaging - None Assessment/Plan: 46 yo male with ESRD on HD and h/o SAL cirrhosis s/p liver transplant in 2018, HFrEF, GERD, HTN w/group II PulmHTN, T2DM, JC who presented as a stroke after after a fall. Found to be hyperkalemic #ESRD on HD #Persistent hyperkalemia -ESRD on MWF HD. 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 -K on admission 7.1. NO EKG changes. -Had HD 11/08 -Repeat K today still elevated at 6.4 Plan -Repeat HD -Continue Lokelma -Monitor on tele -Renally dose all meds, avoid nephrotoxins -Continue to trend ?? #Fall #Stroke alert -Seen by neurology - CTH 11/08 - No acute abnormality - CTA 11/08 - R CHIEF GUARD. No stenosis or occlusion Likely generalised weakness due to metabolic etiologies and possible myoclonus leading to fall in setting of hyperkalemia, uremia and BP 180s/90s. Plan -Evaluation and management of metabolic derangements and hemodialysis #Acute bronchitis -Having respiratory symptoms c/w bronchitis and reactive airway with bronchoconstriction and wheezing -Chest xray no consolidation Plan -Renally dose course of augmentin -Short course of prednisone -nebs #SAL cirrhosis s/p liver transplant #Chronic hepatitis B infection -Underwent liver transplant in 2018 at [facility] for SAL cirrhosis -U/S RUQ 11/08 showed: parenchymal dz, patent vasculature. No ascites. Plan -Resume home cyclosporine, mycophenolate -Resume entecavir #HFrEF #Group II pHTN -Resume home metoprolol -Cont Aspirin ?? #JC -CPAP for night ?? #T2DM -SSI ?? #HTN -Resumed clonidine to prevent rebound HTN -Continue home hydralazine, resume nifedipine ?? #Chronic macrocytic anemia -Hgb 10.1 on admission, appears consistent with patient's baseline. Likely anemia of chronic disease/CKD. -Continue to monitor, transfuse if <7 ?? #GERD -Resume home PPI ?? #Mood disorder -Resume home PRN xanax ?? #Morbid Obesity Body mass index is 43.92 kg/m??. - Complicates all aspect of cares ?? Nani Coreas MD 11/09/2021 Secure Chat Preferred Spent 45 minutes including face to face visit, performing physical exam, interpreting labs, ordering necessary studies, medications, consults,etc, counseling patient * Progress Notes - Juaquin Correa MD - 11/09/2021 1:59 PM EDT Nephrology Progress Note Patient: Leoncio Rollins Admit Date: 11/08/2021 Subjective No acute events overnight. Patient states that he is feeling well today. Patient tries to be compliant with his CPAP. Patient tolerated dialysis well yesterday. Patient denies any issues with his breathing. Patient tolerating his diet. Patient endorses that his diet has changed at home and he is eating more vegetables. Patient aware that he should avoid foods high in potassium. Patient eating more tomatoes lately. ROS: General: No fever or chills Respiratory: No dyspnea or cough Objective Visit Vitals BP 159/73 (Patient Position: Lying) Pulse 77 Temp 36.7 ??C (98.1 ??F) (Oral) Resp 14 Ht 1.753 m (5' 9 ) Wt 135 kg (297 lb 6.4 oz) SpO2 95% BMI 43.92 kg/m?? Smoking Status Never Smoker BSA 2.56 m?? Temp: [36.6 ??C (97.8 ??F)-36.8 ??C (98.3 ??F)] 36.7 ??C (98.1 ??F) Heart Rate: [73-84] 77 Resp: [13-25] 14 BP: (143-184)/(61-103) 159/73 FiO2 (%): [30 %] 30 % Problem List Principal Problem: Hyperkalemia Active Problems: Morbid obesity with body mass index (BMI) of 40.0 or higher ([facility]) Medications: Current Medications: amoxicillin-clavulanate, 1 tablet, Oral, Once Followed by amoxicillin-clavulanate, 1 tablet, Oral, Daily before dinner aspirin, 81 mg, Oral, Daily carBAMazepine, 200 mg, Oral, BID cloNIDine, 0.1 mg, Oral, BID cycloSPORINE modified, 100 mg, Oral, BID (0600 & 1800) doxazosin, 8 mg, Oral, Nightly [START ON 11/11/2021] entecavir, 0.5 mg, Oral, Weekly gabapentin, 800 mg, Oral, Nightly hydrALAZINE, 50 mg, Oral, TID insulin lispro, 0-5 Units, Subcutaneous, TID with meals insulin lispro, 0-3 Units, Subcutaneous, Twice at night ipratropium-albuterol, 3 mL, Nebulization, q6h metoprolol succinate XL, 100 mg, Oral, Daily mycophenolate, 250 mg, Oral, BID NIFEdipine XL, 90 mg, Oral, BID pantoprazole, 40 mg, Oral, Daily before breakfast predniSONE, 40 mg, Oral, Daily Followed by [START ON 11/11/2021] predniSONE, 20 mg, Oral, Daily Followed by [START ON 11/13/2021] predniSONE, 10 mg, Oral, Daily sevelamer carbonate, 1,600 mg, Oral, TID with meals sodium zirconium cyclosilicate, 10 g, Oral, TID Followed by [START ON 11/10/2021] sodium zirconium cyclosilicate, 10 g, Oral, Daily Physical Exam: Gen: no apparent distress, lying comfortably in bed Eyes: clear conjunctivae bilaterally, pupils equal, round and reactive to light HENT: moist mucus membranes, normocephalic and atraumatic Neck: supple, trachea midline CV: normal rate and regular rhythm, no murmurs, rubs or gallops, left upper extremity AV fistula noted with aneurysmal dilations Pulm: normal respiratory effort, clear to auscultation bilaterally Abd: Soft, non-tender, non-distended Ext: no peripheral edema appreciated in bilateral lower extremities, no cyanosis Skin: warm and dry, no rashes on exposed skin Neuro: Awake, alert and appropriately conversant Access: Left upper extremity fistula Laboratory: CBC: Results from last 7 days Lab Units 11/08/21 0310 WBC 10*3/uL 10.10 HEMOGLOBIN g/dL 10.1* HEMATOCRIT % 32.1* PLATELETS 10*3/uL 321 CMP: Results from last 7 days Lab Units 11/09/21 0232 11/08/21 1305 11/08/21 0656 11/08/21 0539 11/08/21 0539 11/08/21 0359 11/08/21 0317 11/08/21 0310 SODIUM mmol/L 136 -- -- -- 136 -- -- 141 SODIUM, SYRINGE mmol/L -- -- -- -- -- -- 141 -- POTASSIUM mmol/L 6.4* 5.4* 6.9* < > 7.8* < > -- 7.7* CHLORIDE mmol/L 97 -- -- -- 97 -- -- 100 CO2 mmol/L 24 -- -- -- 23 -- -- 24 BUN mg/dL 58* -- -- -- 80* -- -- 79* CREATININE mg/dL 9.04* -- -- -- 10.69* -- -- 10.32* CALCIUM mg/dL 7.9* -- -- -- 8.7* -- -- 8.9 BILIRUBIN TOTAL mg/dL -- -- -- -- 0.3 -- -- 0.3 ALKALINE PHOSPHATASE U/L -- -- -- -- 117* -- -- 124* ALT U/L -- -- -- -- 7* -- -- 9* AST U/L -- -- -- -- 16 -- -- 16 GLUCOSE mg/dL 115* -- -- -- 121* -- -- 70* < > = values in this interval not displayed. LFT: AST, Plasma Date Value Ref Range Status 11/08/2021 16 12 - 40 U/L Final Comment: Hemolyzed, result may be falsely increased. ALT, Plasma Date Value Ref Range Status 11/08/2021 7 (L) 11 - 41 U/L Final Alkaline Phosphatase, Plasma Date Value Ref Range Status 11/08/2021 117 (H) 40 - 115 U/L Final Total Bilirubin, Plasma Date Value Ref Range Status 11/08/2021 0.3 0.2 - 1.1 mg/dL Final Impression & Plan: Mr. Rollins is a 46 y.o. male with a history of ??ESRD on MWF HD and h/o SAL cirrhosis s/p liver transplant in 2018 that presented as transfer from OSH for stroke alert. Transplant Nephrology consulted as patient is ESRD. #ESRD -Etiology likely multifactorial given history of OLT -Undergoes MWF HD -Access: Fistula -EDW: Unknown -Last outpatient HD on 11/05/2021 ?? #Hyperkalemia - Potassium severely elevated to the 7s on presentation - Urgent HD pursued on 11/08/2021 -potassium remains elevated at 6.4 today, 11/09/2021 ?? #Stroke alert with generalized weakness - CT imaging on admission negative for stroke - Neurology following ?? #Anemai - Hgb noted to be 10.1 on 11/08, at goal ?? #Obesity -Body mass index is 43.92 kg/m??. -Complicates care ?? Plan: -will repeat another HD session 2 hours today, 11/09/2021 -low K diet -repeat renal function panel in the AM -strict I/O -Avoid NSAIDs and IV contrast -Renally dose all the medications to the GFR. Thank you for the opportunity to participate in the care of this patient. Juaquin Correa MD PGY-5 Nephrology Fellow Cosigned by Man Lundberg MD at 11/09/2021 2:32 PM EDT Associated attestation - Man Lundberg MD - 11/09/2021 2:32 PM EDT I saw and evaluated the patient with the resident/fellow. I discussed the case with the resident/fellow and agree with the findings and plan as documented. Continue Monday dialysis. His potassium is 6.4 today and will add an additional run of dialysis with a 2 K bath. Restrict dietary potassium (there was orange juice on his tray this morning) and have renal dietitian go over food choices with him. * Progress Notes - Kendell Jones RN - 11/09/2021 12:18 PM EDT Case Management Adult Initial Progress Note Leoncio Rollins 46 y.o. male CSN: [id number] Admission: 11/08/2021 3:09 AM Primary Problem: Hyperkalemia Grinder Outside Diameter reviewed chart and spoke with patient to complete this Initial Case Management Assessment. PCP: Edgar Fournier MD Emergency Contact: Extended Emergency Contact Information Primary Emergency Contact: Kym Rollins Mobile Relation: Spouse Preferred language: Japanese Outpatient Physical Therapist needed? No Secondary Emergency Contact: Benjy Rollins Mobile Relation: None Insurance: Primary Visit Coverage Payer Plan Sponsor Code Group Number Group Name [employer] [id number] Primary Visit Coverage Subscriber Subscriber ID Subscriber Name Subscriber SSN Subscriber Address [id number] LEONCIO ROLLINS JR [id number] [id number] Secondary Visit Coverage Payer Plan Sponsor Code Group Number Group Name MEDICAID-[facility] MEDICAID TRADITIONAL Secondary Visit Coverage Subscriber Subscriber ID Subscriber Name Subscriber SSN Subscriber Address [id number] LEONCIO ROLLINS [id number] [id number] Patient information: Patient lives in a house with his and son. Uses [facility] in [place] as his pharmacy. Left FA AV fistula for HD. Daily Living Activities: Self. [address] [id number] Income Information: Housing Circumstances-Z Codes: Patient Referred to: Anticipated Discharge Date: 11/11/21 Patient's Discharge Goal: Assistance Available at Discharge: Discharge Transport: Follow Up Transport: Self and . Home Health / Home Infusion / Outpatient Dialysis Services: None reported. DME: Rollator, cane (single), Cpap. Has ramp at home. Living Will/Advance Directive/Power of Director Transition /Guardian: Denies. Additional Comments: Home CPAP for JC is not functioning. Will contact [facility] to see if I can assist. CM will continue to follow. Kendell Jones RN * Hospital Course - Ale Cavazos MD - 11/08/2021 3:43 PM EDT Leoncio Rollins is a 46 y.o. male PMH: ESRD on HD and h/o SAL cirrhosis s/p liver transplant in 2018, HFrEF, GERD, HTN w/ group II PulmHTN, T2DM, JC, Admitted for: OSH w/ stroke alert w/ abrupt LE weakness and hyperK Mr. Rollins reports he was in his normal state of health until around 10 PM this evening when he transiently lost control of both of his legs and fell to the ground. He denies any facial droop or slurring of his words during this time. His called 911 due to concerns for stroke and he was taken by EMS to [facility]. CT head performed there was reportedly normal. He was offered TPAbut declined due to his history of bleeding esophageal varices prior to his transplant. Other workup at the OSH revealed hyperkalemia to 7.1, so he was given calcium gluconate, insulin, D10, and an albuterol neb prior to transfer. Stroke alert was called upon arrival to . Repeat head CT and CTA he ad/neck here were unremarkable. Neurology was consulted and deemed this not likely to be a stroke. Medicine was called for admission for his hyperkalemia. Patient is on hospital medicine service for management of following clinical issues: #Hyperkalemia #ESRD on HD -ESRD on MWF HD. 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 He was evaluated by renal transplant in 01/2021 and told he would need to lose significant weight to undergo renal transplant. He has not missed any recent HD sessions. Potassium on arrival to OSH was 7.1 and has remained stable here. No EKG changes. His K improved to 5.4 post-HD 11/08.Continued Lokelma. Renally dosed all meds, avoid nephrotoxins. #Generalized weakness -Suspected etiology is likely multifactorial and includes his hyperkalemia, untreated JC, and possible hepatic encephalopathy based on asterixis on examination. He could have also had some cardiac event today given his elevated troponin. He also endorses recent cough and congestion, so he could have some component of viral illness. CT head and CT head/neck negative for stroke. Appreciated Neuro recs, keep on ASA for now, no stroke PPX needed. Outpatient PT referral sent #Elevated troponin likely 2/2 type 2 OK/CKD -Troponin elevated at 228 on admission. Repeat currently pending. He does likely have some component of chronic myocardial injury with inability to clear troponin given ESRD, however chart review reveals troponin was 44 at OSH last week. EKG unremarkable here and patient denies chest pain. #SAL cirrhosis s/p liver transplant #BUE hand low-frequency tremor #Chronic hepatitis B infection -Underwent liver transplant in 2018 at [facility] for SAL cirrhosis. Prior to transplant, he had several complications of his cirrhosis include esophageal varices requiring hospitalization for massive UGIB and hepatic encephalopathy. He reports compliance with regular transplant follow-ups at as well as compliance with his immunosuppressive drug regimen. No overt evidence of hepatic dysfunction on labs, but he does endorse waxing and waning confusion over the past month and does have asterixis on exam concerning for hepatic encephalopathy. - Ammonia WNL - U/S RUQ 11/08 showed: 1. Mildly coarsened echotexture of the liver transplant may represent parenchymal disease. 2. Patent hepatic vasculature with appropriate flow directionality. 3. No ascites. 4. Small right kidney with parenchymal thinning consistent with chronic kidney disease. - Resume home cyclosporine, mycophenolate - Patient takes entecavir 1x per week for chronic hep B - Conservative management of tremor. #HFrEF #Group II pHTN -Resume home metoprolol, Aspirin #JC -CPAP for night #T2DM -SSI #HTN -Resumed clonidine to prevent rebound HTN -Continue home hydralazine at reduced dose and Nifedipine #Chronic macrocytic anemia -Hgb 10.1 on admission, appears consistent with patient's baseline. Likely anemia of chronic disease/CKD. #GERD -Resume home PPI #Mood disorder -Resume home PRN xanax #Morbid Obesity Body mass index is 43.92 kg/m??. - Complicates all aspect of cares * Consults - Juaquin Correa MD - 11/08/2021 2:39 PM EDTAssociated Order(s): Consult to Nephrology Consult to Nephrology Consult performed by: Juaquin Correa MD Consult ordered by: Bailey Leonardo MD Patient: Leoncio Rollins Admit Date: 11/08/2021 Date of Consult: 11/08/2021 Time of Consult: 2:39 PM Requesting Attending: Ale Cavazos MD Reason for Consult: ESRD; needing dialysis HPI: 46 y.o. male with a history of ESRD on MWF HD and h/o SAL cirrhosis s/p liver transplant in 2018 that presented as transfer from OSH for stroke alert. Transplant Nephrology consulted as patient is ESRD. Patient reported he was in his normal state of health until around 10 PM yesterday evening whenhe transiently lost control of both of his legs and fell to the ground. He denied any facial droop or slurring of his words during this time. His called 911 due to concerns for stroke and he wastaken by EMS to [facility]. CT head performed there was reportedly normal. He was offered TPA but declined due to his history of bleeding esophageal varices prior to his transplant. Other workup at the OSH revealed hyperkalemia to 7.1, so he was given calcium gluconate, insulin, D10, and an albuterol neb prior to transfer. Stroke alert was called upon arrival to . Repeat head CT and CTA head/neck here were unremarkable. Neurology was consulted and deemed this not likely to be a stroke. Urgent HD was ordered. Patient was seen and evaluated on HD and noted to be tolerating dialysis well. ROS: 14 point review of systems is negative unless otherwise specified History: Past Medical History: Diagnosis Date ??? Anemia ??? Chronic kidney disease ??? Conversions - Other Anemia ??? Conversions - Other Benign Prostatic Hypertrophy ??? Conversions - Other Cirrhosis ??? Conversions - Other Diabetes Mellitus ??? Diabetes mellitus type 2 (CMS/HCC) ??? Fatty (change of) liver, not elsewhere classified 10/25/2012 ??? Hematochezia ??? Hypertension ??? 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 Neuropathy ??? Obesity ??? Retinopathy Past Surgical History: Procedure Laterality Date ??? BACK SURGERY ??? CHOLECYSTECTOMY ??? LIVER TRANSPLANTATION 2017 ??? OTHER SURGICAL HISTORY N/A History Of Prior Surgery from [facility] ??? TREATMENT, LOWER LEG FRACTURE Family History Problem Relation Name Age of Onset ??? Alcohol abuse Sister ??? Alcohol abuse Father ??? Alcohol abuse Father's Brother ??? Cancer Father ??? Cirrhosis Sister ??? Diabetes Sister ??? Diabetes Mother Social History Socioeconomic History ??? Marital status: Spouse name: Not on file ??? Number of children: Not on file ??? Years of education: Not on file ??? Highest education level: Not on file Occupational History ??? Not on file Tobacco Use ??? Smoking status: Never Smoker ??? Smokeless tobacco: Never Used Substance and Sexual Activity ??? Alcohol use: No Comment: Alcoholic Drinks/day: Never Drank Alcohol ??? Drug use: Yes Comment: Drug use: Drug Use ??? Sexual activity: Not on file Other Topics Concern ??? Not on file Social History Narrative Unemployed Social Determinants of Health Financial Resource Strain: Not on file Food Insecurity: Not on file Transportation Needs: Not on file Physical Activity: Not on file Stress: Not on file Social Connections: Not on file Intimate Partner Violence: Not on file Housing Stability: Not on file Allergies Allergen Reactions ??? Tacrolimus Other Anxious feeling and muscle jerking. TOLERATED ENVARSUS BETTER THAN PROGRAF. ??? Codeine Anxiety Medications: Home Medications: Current Facility-Administered Medications: ??? acetaminophen (Tylenol) tablet 650 mg, 650 mg, Oral, q8h PRN, Brittny Calero MD ??? alteplase (Cathflo Activase) injection 2 mg, 2 mg, Intracatheter, PRN, Roberta Fleming MD ??? aspirin chewable tablet 81 mg, 81 mg, Oral, Daily, Brittny Calero MD, 81 mg at 11/08/21 1324 ??? cloNIDine (Catapres) tablet 0.1 mg, 0.1 mg, Oral, BID, Brittny Calero MD, 0.1 mg at 11/08/21 1324 ? ? cycloSPORINE modified (Gengraf) capsule 100 mg, 100 mg, Oral, BID (0600 & 1800), Brittny Calero MD, 100 mg at 11/08/21 0607 ??? dextrose 10 % (D10W) bolus 125 mL, 12.5 g, Intravenous, q15 min PRN, Bindu Short MD ??? dextrose 10 % (D10W) bolus 125 mL, 12.5 g, Intravenous, q15 min PRN OR glucagon (human recombinant) injection 1 mg, 1 mg, Intramuscular, q15 min PRN, Bindu Short MD ??? dextrose 10 % (D10W) bolus 250 mL, 25 g, Intravenous, q15 min PRN, Bindu Short MD ??? dextrose 50 % solution 25 mL, 25 mL, Intravenous, PRN, Bindu Short MD ??? doxazosin (Cardura) tablet 8 mg, 8 mg, Oral, Nightly, Brittny Calero MD ??? heparin (porcine) injection 7,500 Units, 7,500 Units, Subcutaneous, q8h, Tami Lynch, ,7,500 Units at 11/08/21 1324 ??? hydrALAZINE (Apresoline) tablet 50 mg, 50 mg, Oral, TID, Brittny Calero MD ??? insulin lispro (HumaLOG) 100 units/mL injection - Correction - Standard Dose, 0-5 Units, Subcutaneous, TID with meals, Brittny Calero MD ??? insulin lispro (HumaLOG) injection - Correction - Nighttime Dose, 0-3 Units, Subcutaneous, Twice at night, Brittny Calero MD ??? metoprolol succinate XL (Toprol-XL) 24 hr tablet 100 mg, 100 mg, Oral, Daily, Brittny Calero MD, 100 mg at 11/08/21 1323 ??? mycophenolate (Cellcept) capsule 250 mg, 250 mg, Oral, BID, Brittny Calero MD, 250 mg at 11/08/21 1323 ??? pantoprazole (Protonix) EC tablet 40 mg, 40 mg, Oral, Daily before breakfast, Brittny Calero MD, 40 mg at 11/08/21 1323 ??? [COMPLETED] Insert peripheral IV, , , Once AND [COMPLETED] Saline lock IV, , , Once ANDsodium chloride 0.9 % flush 10 mL, 10 mL, Intravenous, q8h PRN AND sodium chloride 0.9 % flush 10 mL, 10 mL, Intravenous, PRN, Brittny Calero MD ??? sodium citrate anticoagulant 4 % flush 6 mL, 6 mL, Intracatheter, PRN, Gerald Lopez MD ??? sodium zirconium cyclosilicate (Lokelma) packet 10 g, 10 g, Oral, TID FOLLOWED BY [START ON11/10/2021] sodium zirconium cyclosilicate (Lokelma) packet 10 g, 10 g, Oral, Daily, Brittny Calero MD Current Outpatient Medications: ??? ALPRAZolam (Xanax) 0.5 MG tablet, Take 0.5 mg by mouth at night if needed for anxiety., Disp: ,Rfl: ??? aspirin 81 MG EC tablet, Take 81 mg by mouth 1 (one) time each day., Disp: , Rfl: ??? Calcium Acetate 667 MG tablet, Take 1 tablet by mouth 3 (three) times a day with meals., Disp: , Rfl: ??? cloNIDine (Catapres) 0.1 MG tablet, Take 0.1 mg by mouth 2 (two) times a day. , Disp: , Rfl: ??? cyclobenzaprine (Flexeril) 10 MG tablet, Take 10 mg by mouth 2 (two) times a day if needed. , Disp: , Rfl: ??? cycloSPORINE modified (NEOral) 100 MG capsule, Take 1 capsule by mouth 2 (two) times a day., Disp: , Rfl: ??? doxazosin (Cardura) 8 MG tablet, Take 8 mg by mouth every night., Disp: , Rfl: ??? entecavir (Baraclude) 0.5 MG tablet, Take 0.5 mg by mouth 1 (one) time per week., Disp: , Rfl: ??? ergocalciferol (ergocalciferol) 1.25 MG (07092 UT) capsule, Take 50,000 Units by mouth 3 (three) times a week. , Disp: , Rfl: ??? HumuLIN N KWIKPEN 100 UNIT/ML injection, Inject under the skin 3 (three) times a day with meals. Per sliding scale, Disp: , Rfl: ??? hydrALAZINE (Apresoline) 100 MG tablet, Take 100 mg by mouth 3 (three) times a day. Twice dailyalways. Midday dose as needed., Disp: , Rfl: ??? melatonin 3 MG tablet, Take 5 mg by mouth every night. , Disp: , Rfl: ??? metoprolol succinate XL (Toprol-XL) 100 MG 24 hr tablet, Take 1 tablet by mouth every night., Disp: , Rfl: ??? mycophenolate (Cellcept) 250 MG capsule, Take 250 mg by mouth 2 (two) times a day. , Disp: , Rfl: ??? NIFEdipine XL (Procardia XL) 90 MG 24 hr tablet, Take 1 tablet by mouth 2 (two) times a day., Disp: , Rfl: ??? ondansetron (Zofran) 4 MG tablet, Take 1 tablet by mouth every 6 (six) hours if needed., Disp: , Rfl: ??? pantoprazole (ProtoNix) 40 MG EC tablet, Take 40 mg by mouth 2 (two) times a day. , Disp: , Rfl: Physical Exam: Visit Vitals BP (!) 184/85 (BP Location: Right arm, Patient Position: Lying) Pulse 75 Temp 36.8 ??C (98.2 ??F) (Oral) Resp 16 Ht 1.753 m (5' 9 ) Wt 135 kg (297 lb 6.4 oz) SpO2 96% BMI 43.92 kg/m?? Smoking Status Never Smoker BSA 2.56 m?? General: no apparent distress, patient lying comfortably in bed Eyes: clear conjunctivae bilaterally, no lid lag HENT: Moist mucus membranes, atraumatic Neck: trachea midline, supple Respiratory: no increased work of breathing, equal chest rise CV: No peripheral edema Skin: No visible rash Musculoskeletal: No joint swelling, no cyanosis Neuro: Sleepy Laboratory: CBC: Results from last 7 days Lab Units 11/08/21 0310 WBC 10*3/uL 10.10 HEMOGLOBIN g/dL 10.1* HEMATOCRIT % 32.1* PLATELETS 10*3/uL 321 CMP: Results from last 7 days Lab Units 11/08/21 1305 11/08/21 0656 11/08/21 0539 11/08/21 0359 11/08/21 0317 11/08/21 0310 SODIUM mmol/L -- -- 136 -- -- 141 SODIUM, SYRINGE mmol/L -- -- -- -- 141 -- POTASSIUM mmol/L 5.4* 6.9* 7.8* < > -- 7.7* CHLORIDE mmol/L -- -- 97 -- -- 100 CO2 mmol/L -- -- 23 -- -- 24 BUN mg/dL -- -- 80* -- -- 79* CREATININE mg/dL -- -- 10.69* -- -- 10.32* CALCIUM mg/dL -- -- 8.7* -- -- 8.9 BILIRUBIN TOTAL mg/dL -- -- 0.3 -- -- 0.3 ALKALINE PHOSPHATASE U/L -- -- 117* -- -- 124* ALT U/L -- -- 7* -- -- 9* AST U/L -- -- 16 -- -- 16 GLUCOSE mg/dL -- -- 121* -- -- 70* < > = values in this interval not displayed. LFT: AST, Plasma Date Value Ref Range Status 11/08/2021 16 12 - 40 U/L Final Comment: Hemolyzed, result may be falsely increased. ALT, Plasma Date Value Ref Range Status 11/08/2021 7 (L) 11 - 41 U/L Final Alkaline Phosphatase, Plasma Date Value Ref Range Status 11/08/2021 117 (H) 40 - 115 U/L Final Total Bilirubin, Plasma Date Value Ref Range Status 11/08/2021 0.3 0.2 - 1.1 mg/dL Final Impression & Plan: Mr. Rollins is a 46 y.o. male with a history of ESRD on MWF HD and h/o SAL cirrhosis s/p liver transplant in 2018 that presented as transfer from OSH for stroke alert. Transplant Nephrology consultedas patient is ESRD. #ESRD -Etiology likely multifactorial given history of OLT -Undergoes MWF HD -Access: Fistula -EDW: Unknown -Last outpatient HD on 11/05/2021 #Hyperkalemia - Potassium severely elevated to the 7s on presentation - Urgent HD pursued on 11/08/2021 #Stroke alert - CT imaging on admission negative for stroke - Neurology following #Anemai - Hgb noted to be 10.1 on 11/08, at goal #Obesity -Body mass index is 43.92 kg/m??. -Complicates care Plan: -urgent HD pursued on 11/08/2021 for hyperkalemia as well as today would be patient's normal HD day -pursuing 2-3 liters of UF with HD -low K diet -repeat renal function panel in the AM -strict I/O -Avoid NSAIDs and IV contrast -Renally dose all the medications to the GFR. Thank you for allowing us to participate in the care of this patient. Juaquin Correa MD Nephrology Fellow PGY-5 Cosigned by Man Lundberg MD at 11/08/2021 2:54 PM EDT Associated attestation - Man Lundberg MD - 11/08/2021 2:54 PM EDT I saw and evaluated the patient with the resident/fellow. I discussed the case with the resident/fellow and agree with the findings and plan as documented. Patient seen on dialysis tolerating well. Initiated hemodialysis for hyperkalemia. Patient has mental status changes with negative evaluation for stroke. Neurology follow-up. Liver transplant should be managed by liver transplant service. They will also manage the immunosuppression on this patient. * Progress Notes - Genet Link, OT - 11/08/2021 11:23 AM EDT Occupational Therapy Evaluation Patient Name: Leoncio Rollins Today's Date: 11/08/2021 OT Discharge Recommendations: Home Equipment Recommended: None History Leoncio Rollins is 46 y.o. male admitted 11/08/2021 for work-up of Hyperkalemia. Problem List Active Hospital Problems Diagnosis Date Noted ??? 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 Past Surgical History Patient has a past surgical history that includes Other surgical history (N/A); Liver transplantation (2018); Back surgery; treatment, lower leg fracture; and Cholecystectomy. Precautions Left Lower Extremity Weight Bearing Status: Weight Bearing as Tolerated Right Lower Extremity Weight Bearing Status: Weight Bearing as Tolerated Left Upper Extremity Weight Bearing Status : Weight bearing as tolerated Right Upper Extremity Weight Bearing Status : Weight bearing as tolerated Medical Precautions: Fall precautions Subjective Pt reports having an AFO at home Participants in Care Family/Caregiver Present: No Presentation Oxygen Therapy: None (Room air) Lines and Tubes: Intravenous access Pre-Session: Supine,Lines intact,Head of bed elevated Post-Session: Supine,Head of bed elevated,Lines intact,RN notified,Call light in reach Home Living/Set-up Lives With: Spouse Home Type: House Home Adaptive Equipment: Rolling walker Home Layout: One level Prior Level of Function Receives Help From: No assist required prior to admission Level of Mobility: Ambulatory- community Mobility Owsley: Independent gait without device History of Falls: Yes ADL Performance: Independent Patient/Family Goals Statement agreeable to participation Objective Pain Pain Assessment Pain Assessment: No/denies pain Delirium Screening Sifuentes Agitation Sedation Scale (RASS): Alert and calm Confusion Assessment Method-ICU (CAM-ICU/PCAM-ICU) Feature 3: Altered Level of Consciousness: Negative Cognition Overall Cognitive Status: Within Functional Limits Arousal/Alertness: Appropriate responses to stimuli Mood/Behavior: Alert Orientation Level: Oriented X4 Single Step Commands: Consistently Multi-Step Commands: Consistently Method of Communication: Verbal Right Upper Extremity Examination RUE ROM Assessment RUE Assessment: Within Functional Limits Manual Muscle Testing - RUE: Within functional limits Left Upper Extremity Examination LUE ROM Assessment LUE Assessment: Within Functional Limits Manual Muscle Testing - LUE: Within functional limits Right Lower Extremity Examination RLE ROM Assessment RLE Assessment: Within Functional Limits Manual Muscle Testing - RLE: Within functional limits Left Lower Extremity Examination LLE ROM Assessment LLE Assessment: Within Functional Limits Manual Muscle Testing: Within functional limits Bed Mobility Bed Mobility Exam: Rolling/Turning Level of Owsley: Independent Bed Mobility Exam: Scooting/Bridging Level of Owsley: Independent Bed Mobility Exam: Supine to Sit Level of Owsley: Modified Owsley Bed Mobility Exam: Sit to Supine Level of Owsley: Modified independence Transfers Transfer Exam: Sit to stand Level of Owsley: Stand-by assist Physical/Nonphysical Assist: Verbal Cues Transfer Exam: Stand to Sit Level of Owsley: Stand-by assist Physical/Nonphysical Assist: Verbal Cues Functional Mobility Device: No device Assistance: Standby assist Distance : 110 ft. Self-Care Interventions Grooming Grooming Level of Assistance: Independent Grooming Where Assessed: Standing sinkside Toileting Toileting Level of Assistance: Independent Where Assessed: Toilet Standardized Assessments Roderick Index Feeding: Independent Bathing: Independent (or in Shower) Grooming: Independent face/hair/teeth/shaving (implements provided) Dressing: Independent (including buttons, zips, laces etc.) Bowels: Continent Bladder: Continent Toilet Use: Independent (on and off, dressing, wiping) Transfers (Bed to Chair and Back): Independent Mobility (on Level Surfaces): Walks with help or one person (verbal or physical) > 50 yards Stairs: Needs help (verbal, physical, carrying aid) Total Score: 90 Assessment No current skilled needs from OT OT Findings: Decreased gross motor control/coordination Eval Complexity Occupational Profile: Brief history including review of medical/therapy records relating to presenting problem Clinical Decision Making: Low Overall Eval complexity: Low OT Recommendations Discharge Destination: Home Discharge Equipment: None Plan Patient no longer demonstrates need for inpatient occupational therapy services. Patient to be discharged from occupational therapy. Written by Genet Link OT on 11/08/21 at 11:23 AM. * Progress Notes - Stef Cabrera, PT - 11/08/2021 10:46 AM EDT Physical Therapy Evaluation Patient Name: Leoncio Rollins Today's Date: 11/08/2021 PT Discharge Recommendations: Home with assistance,Outpatient PT Equipment Recommended: Patient owns appropriate equipment History Leoncio Rollins is 46 y.o. male admitted 11/08/2021 for work-up of Hyperkalemia. Problem List Active Hospital Problems Diagnosis Date Noted ??? 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 Past Surgical History Patient has a past surgical history that includes Other surgical history (N/A); Liver transplantation (2018); Back surgery; treatment, lower leg fracture; and Cholecystectomy. Precautions Left Lower Extremity Weight Bearing Status: Weight Bearing as Tolerated Right Lower Extremity Weight Bearing Status: Weight Bearing as Tolerated Left Upper Extremity Weight Bearing Status : Weight bearing as tolerated Right Upper Extremity Weight Bearing Status : Weight bearing as tolerated Medical Precautions: Fall precautions Subjective Leoncio Rollins is a 46 y.o. male with ESRD on MWF HD and h/o SAL cirrhosis s/p liver transplant in 2018 that presented as transfer from OSH for stroke alert. He reports he was in his normal state of health until around 10 PM this evening when he transiently lost control of both of his legs andfell to the ground. He denies any facial droop or slurring of his words during this time. His called 911 due to concerns for stroke and he was taken by EMS to [facility]. CT head performed there was reportedly normal. Participants in Care Family/Caregiver Present: No Presentation Oxygen Therapy: None (Room air) Lines and Tubes: Intravenous access Pre-Session: Supine,Lines intact,Head of bed elevated Post-Session: Supine,Head of bed elevated,Lines intact,RN notified,Call light in reach Home Living/Set-up Lives With: Spouse Home Type: House Home Adaptive Equipment: Rolling walker Home Layout: One level Prior Level of Function Receives Help From: No assist required prior to admission Level of Mobility: Ambulatory- community Mobility Owsley: Independent gait without device History of Falls: Yes ADL Performance: Independent Patient/Family Goals Patient stated desire to return home Objective Pain Pain Assessment Pain Assessment: No/denies pain Delirium Screening Sifuentes Agitation Sedation Scale (RASS): Alert and calm Confusion Assessment Method-ICU (CAM-ICU/PCAM-ICU) Feature 3: Altered Level of Consciousness: Negative Cognition Overall Cognitive Status: Within Functional Limits Arousal/Alertness: Appropriate responses to stimuli Mood/Behavior: Alert Orientation Level: Oriented X4 Single Step Commands: Consistently Multi-Step Commands: Consistently Method of Communication: Verbal Right Upper Extremity Examination RUE Assessment: Within Functional Limits Manual Muscle Testing - RUE: Within functional limits Left Upper Extremity Examination LUE ROM Assessment LUE Assessment: Within Functional Limits Manual Muscle Testing - LUE Manual Muscle Testing - LUE: Within functional limits Right Lower Extremity Examination RLE ROM Assessment RLE Assessment: Within Functional Limits Manual Muscle Testing - RLE Manual Muscle Testing - RLE: Within functional limits Left Lower Extremity Examination LLE Assessment: Within Functional Limits Manual Muscle Testing: Within functional limits Bed Mobility Bed Mobility Exam: Rolling/Turning Level of Owsley: Independent Bed Mobility Exam: Scooting/Bridging Level of Owsley: Independent Bed Mobility Exam: Supine to Sit Level of Owsley: Modified Owsley Bed Mobility Exam: Sit to Supine Level of Owsley: Modified independence Transfers Transfer Exam: Sit to stand Level of Owsley: Stand-by assist Physical/Nonphysical Assist: Verbal Cues Transfer Exam: Stand to Sit Level of Owsley: Stand-by assist Physical/Nonphysical Assist: Verbal Cues Ambulation Device: No device Assistance: Standby assist Distance : 110 ft. Ambulation Comments: Patient demonstrates decreased anand with decreased step length, and decreased active DF on RLE Therapeutic Activity ( minutes) Patient participated in 10 minutes of transfers and balance activities with physical therapist after assessment. Standardized Assessments Standardized Assessments Standardized Assessments: [facility] 6-Clicks Mobility Assessment [facility] 6-Clicks Mobility Assessment Difficulty patient has turning over in bed (including adjusting bedclothes, sheets, and blankets)?:None Difficulty patient has sitting down on and standing up from a chair with arms (wheelchair, bedside commode, etc.)?: None Difficulty patient has moving from lying on back to sitting on the side of the bed?: None How much help does the patient need moving to and from a bed to a chair (including a wheelchair)?: A little How much help does the patient need to walk in hospital room?: A little How much help does the patient need climbing 3-5 steps with a railing?: A little [facility] 6-Clicks Mobility Assessment Total : 21 Standardized Assessments Standardized Assessments Standardized Assessments: [facility] 6-Clicks Mobility Assessment [facility] 6-Clicks Mobility Assessment Difficulty patient has turning over in bed (including adjusting bedclothes, sheets, and blankets)?:None Difficulty patient has sitting down on and standing up from a chair with arms (wheelchair, bedside commode, etc.)?: None Difficulty patient has moving from lying on back to sitting on the side of the bed?: None How much help does the patient need moving to and from a bed to a chair (including a wheelchair)?: A little How much help does the patient need to walk in hospital room?: A little How much help does the patient need climbing 3-5 steps with a railing?: A little [facility] 6-Clicks Mobility Assessment Total : 21 Assessment Patient required increased cues and assist for positioning to increase efficiency of transfers. Patient demonstrates ataxic gait and noted to have increased work of breathing with activity. Patient would benefit from further follow up to ensure functional independence. Impairments: Impaired balance,Impaired functional mobility/transfers,Impaired locomotion Activity Limitations: Inability to transfer independently,Inability to ambulate independently,Inability to complete ADLs independently Participation Restrictions: Self-care,Home management,Community leisure Rehab Potential: Good, to achieve stated therapy goals Eval Complexity History Profile: 1 - 2 personal factors and/or comorbidities Clinical Presentation: Evolving clinical presentation with changing characteristics Clinical Decision Making: Moderate complexity PT Recommendations Discharge Destination: Home with assistance,Outpatient PT Discharge Equipment: Patient owns appropriate equipment Plan Planned PT Interventions Balance training,Gait training,Motor coordination training,Neuromuscular re- education,Functional Mobility PT Frequency 2 - 5 times per week PT Duration 2 weeks Goals PT GOAL DETAILS Time Frame PT Goal 1: Patient will be independent with HEP, discharge recommendations 2 weeks PT Goal 2: Patient will transfer sit-stand and bed<>chair independently 2 weeks PT Goal 3: Patient will ambulate 350 ft. independently 2 weeks Written by Stef Cabrera PT on 11/08/21 at 10:46 AM. * Progress Notes - Ann Marie Hodge MD - 11/08/2021 10:27 AM EDT Subjective: Pt was seen after dialysis this am. He reports chronic bilateral upper extremities tremors for approx 2.5 yrs. He reports that it got worse yesterday. He reports an episode of lightheadedness and hislegs giving away, and so he fell, and was on the ground for about a minute, before he could get himself up together to stand up and walk to his bedroom. He denies any LOC during this episode. He reports feeling generalised weakness, and unable to walk until this morning. However, on neuro exam today, he was able to walk without any ataxia, but was noted to have high stepping gait on RLE. He reports hx of R foot drop secondary to surgical compression injury in the past, and has been using AFO bra sabrina. ROS: General: no fever, chills CV: no chest pain, palpitations RS: no SOA, cough GI: no nausea, vomiting, abdominal pain : no dysuria, hematuria Vitals: Visit Vitals BP 168/83 (BP Location: Right arm, Patient Position: Lying) Pulse 79 Temp 36.8 ??C (98.3 ??F) (Oral) Ht 1.753 m (5' 9 ) Wt 135 kg (297 lb 6.4 oz) SpO2 96% BMI 43.92 kg/m?? Physical Examination: GEN: lying in bed; in NAD HEENT: normocephalic, atraumatic, conjunctiva clear, moist mucous membranes CV: regular rate and rhythm on monitor, no LE edema PULM: non-labored breathing, symmetrical chest rise ABD soft, nondistended EXT: no cyanosis, or erythema SKIN: no rashes or lesions Psych: appropriate mood and behavior NEURO: Mental Status: A&O x 3, interactive, able to follow commands Memory and cognition: grossly normal Speech: No aphasia, Intact Articulation CN 2-12: II - VFs full to confrontation III, IV, - EOMI V - Facial sensation intact bilaterally VII - Brow raise and smile symmetrical VIII - Intact hearing to casual conversation IX, X - Palate elevation symmetric, uvula midline XI - SCM and Trapezius strength intact XII - Tongue protrudes midline Motor: antigravity movements in all extremities; no drift noted Sensory: intact light touch throughout Reflexes: 2+ throughout , toes downgoing bilaterally Coordination: Proximal and distal tremors noted in bilateral upper extremities, with asterixis on outstretched arms; no ataxia on [id number] testing Gait/Station: wide-based, non-ataxic; high stepping gait on RLE Cortical: no extinction to double simultaneous stimulation, tactile Meds: Current Facility-Administered Medications: ??? acetaminophen (Tylenol) tablet 650 mg, 650 mg, Oral, q8h PRN, Brittny Calero MD ??? alteplase (Cathflo Activase) injection 2 mg, 2 mg, Intracatheter, PRN, Roberta Fleming MD ??? aspirin chewable tablet 81 mg, 81 mg, Oral, Daily, Brittny Calero MD ??? cloNIDine (Catapres) tablet 0.1 mg, 0.1 mg, Oral, BID, Brittny Calero MD ? ? cycloSPORINE modified (Gengraf) capsule 100 mg, 100 mg, Oral, BID (0600 & 1800), Brittny Calero MD, 100 mg at 11/08/21 0607 ??? dextrose 10 % (D10W) bolus 125 mL, 12.5 g, Intravenous, q15 min PRN, Bindu Short MD ??? dextrose 10 % (D10W) bolus 125 mL, 12.5 g, Intravenous, q15 min PRN OR glucagon (human recombinant) injection 1 mg, 1 mg, Intramuscular, q15 min PRN, Bindu Short MD ??? dextrose 10 % (D10W) bolus 250 mL, 25 g, Intravenous, q15 min PRN, Bindu Short MD ??? dextrose 50 % solution 25 mL, 25 mL, Intravenous, PRN, Bindu Short MD ??? doxazosin (Cardura) tablet 8 mg, 8 mg, Oral, Nightly, Brittny Calero MD ??? heparin (porcine) injection 7,500 Units, 7,500 Units, Subcutaneous, q8h, Tami Lynch DO ??? hydrALAZINE (Apresoline) tablet 50 mg, 50 mg, Oral, TID, Brittny Calero MD ??? insulin lispro (HumaLOG) 100 units/mL injection - Correction - Standard Dose, 0-5 Units, Subcutaneous, TID with meals, Brittny Calero MD ??? insulin lispro (HumaLOG) injection - Correction - Nighttime Dose, 0-3 Units, Subcutaneous, Twice at night, Brittny Calero MD ??? metoprolol succinate XL (Toprol-XL) 24 hr tablet 100 mg, 100 mg, Oral, Daily, Brittny Calero MD ??? mycophenolate (Cellcept) capsule 250 mg, 250 mg, Oral, BID, Brittny Calero MD ??? pantoprazole (Protonix) EC tablet 40 mg, 40 mg, Oral, Daily before breakfast, Brittny Calero MD ??? [COMPLETED] Insert peripheral IV, , , Once AND [COMPLETED] Saline lock IV, , , Once ANDsodium chloride 0.9 % flush 10 mL, 10 mL, Intravenous, q8h PRN AND sodium chloride 0.9 % flush 10 mL, 10 mL, Intravenous, PRN, Brittny Calero MD ??? sodium citrate anticoagulant 4 % flush 6 mL, 6 mL, Intracatheter, PRN, Gerald Lopez MD ??? sodium zirconium cyclosilicate (Lokelma) packet 10 g, 10 g, Oral, TID FOLLOWED BY [START ON11/10/2021] sodium zirconium cyclosilicate (Lokelma) packet 10 g, 10 g, Oral, Daily, Brittny Calero MD Current Outpatient Medications: ??? ALPRAZolam (Xanax) 0.5 MG tablet, Take 0.5 mg by mouth at night if needed for anxiety., Disp: ,Rfl: ??? aspirin 81 MG EC tablet, Take 81 mg by mouth 1 (one) time each day., Disp: , Rfl: ??? Calcium Acetate 667 MG tablet, Take 1 tablet by mouth 3 (three) times a day with meals., Disp: , Rfl: ??? cloNIDine (Catapres) 0.1 MG tablet, Take 0.1 mg by mouth 2 (two) times a day. , Disp: , Rfl: ??? cyclobenzaprine (Flexeril) 10 MG tablet, Take 10 mg by mouth 2 (two) times a day if needed. , Disp: , Rfl: ??? cycloSPORINE modified (NEOral) 100 MG capsule, Take 1 capsule by mouth 2 (two) times a day., Disp: , Rfl: ??? doxazosin (Cardura) 8 MG tablet, Take 8 mg by mouth every night., Disp: , Rfl: ??? entecavir (Baraclude) 0.5 MG tablet, Take 0.5 mg by mouth 1 (one) time per week., Disp: , Rfl: ??? ergocalciferol (ergocalciferol) 1.25 MG (09668 UT) capsule, Take 50,000 Units by mouth 3 (three) times a week. , Disp: , Rfl: ??? HumuLIN N KWIKPEN 100 UNIT/ML injection, Inject under the skin 3 (three) times a day with meals. Per sliding scale, Disp: , Rfl: ??? hydrALAZINE (Apresoline) 100 MG tablet, Take 100 mg by mouth 3 (three) times a day. Twice dailyalways. Midday dose as needed., Disp: , Rfl: ??? melatonin 3 MG tablet, Take 5 mg by mouth every night. , Disp: , Rfl: ??? metoprolol succinate XL (Toprol-XL) 100 MG 24 hr tablet, Take 1 tablet by mouth every night., Disp: , Rfl: ??? mycophenolate (Cellcept) 250 MG capsule, Take 250 mg by mouth 2 (two) times a day. , Disp: , Rfl: ??? NIFEdipine XL (Procardia XL) 90 MG 24 hr tablet, Take 1 tablet by mouth 2 (two) times a day., Disp: , Rfl: ??? ondansetron (Zofran) 4 MG tablet, Take 1 tablet by mouth every 6 (six) hours if needed., Disp: , Rfl: ??? pantoprazole (ProtoNix) 40 MG EC tablet, Take 40 mg by mouth 2 (two) times a day. , Disp: , Rfl: I/O: No intake or output data in the 24 hours ending 11/08/21 1027 Labs: Labs in last 18 hours CBC WBC 10.10 Hb 10.1 (L) Plt 321 Hct 32.1 (L) ANC 4.73 INR 1.0, PTT 29, Anti-Xa <0.11 BMP Na 136 Cl 97 BUN 80 (H) Glu 121 (H) K 6.9 (HH) Co2 23 Cr 10.69 (H) Ca 8.7 (L) iCa 4.4 (L) Mg ??, Phos ?? Lactate ?? LFT AST 16 AlkPhos 117 (H) T Prot 6.7 ALK 7 (L) Bili 0.3 Alb ?? D.Bili ?? Relevant results: - on arrival , BUN 81, Cr 11 and K+ 7.1 (M/W/F dialysis) - BG 140 at OSH -> s/p insulin & D50 for K 7.1 - > BG 69 at [facility] on arrival - ammonia wnl CTH 11/08 - No acute abnormality CTA 11/08 - R CHIEF GUARD. No stenosis or occlusion Assessment/Plan: 46 y.o. male w PMH of liver transplant 2018, ESRD with HD M/W/F, esophageal variceal bleeding in 2017 s/p several units of blood, DM, HTN who transferred from OSH as a stroke alert after his legs gave out underneath him. LKN: 10.30pm, 11/07. NIHSS 2 for asterixis and HTS ataxia. Pt refused tpa at OSH d/t hx of severe GI bleed. #Hx of liver transplant in 2018 (POA) #Hypertension (POA) #Diabetes, Type II (POA) #End stage renal Disease on hemodialysis (POA) #Hx of esophageal variceal bleeding in 2016 (POA) #Chronic bilateral UE tremors (POA) - LKN: 10.30pm, 11/07 - Initial NIHSS: 2 (asterixis and HTS ataxia) -Candidate for IV thrombolysis (tpa): No, out of window at , and pt refused at OSH due to hx of variceal bleeding -Candidate for thrombectomy: No LVO -Risk Factors: HTN, diabetes mellitus, ESRD - on arrival , BUN 81, Cr 11 and K+ 7.1 (M/W/F dialysis) - BG 140 at OSH -> s/p insulin & D50 for K 7.1 - > BG 69 at [facility] on arrival - CTH 11/08 - No acute abnormality - CTA 11/08 - R CHIEF GUARD. No stenosis or occlusion -Ddx: Likely generalised weakness due to metabolic etiologies and possible myoclonus leading to fall in setting of hyperkalemia, uremia and BP 180s/90s. Pt remembers the entire event and less likely concern for seizures. Pt is due for dialysis on 11/08. Chronic bilateral UE tremors could be possiblyessential tremors, however will need to re evaluate after resolution of acute metabolic derangements for better assessment. ?? RECOMMENDATIONS: - No acute indication for further neurological workup at this time. Patient can follow up with [facility] resident clinic for bilateral UE tremors, after resolution of his acute illness, per patient's preference. - evaluation and management of metabolic derangements and hemodialysis, per primary team Staffed with ??Tito, who is agreeable to the above plan. Thank you for the opportunity to participate in the care of this patient. Please page the??stroke??neurology service pager with quesitons. CLARK Oakley PGY 2, Neurology Epic secure chat/[email or web address] Pager: [phone] Cosigned by Ailyn Francis DO at 11/09/2021 12:12 AM EDT Associated attestation - Ailyn Francis DO - 11/09/2021 12:12 AM EDT I saw and evaluated the patient with the resident/fellow. I discussed the case with the resident/fellow and agree with the findings and plan as documented. Patient reports onset of symptoms at home of weakness in legs bilaterally and associated light-headedness. No LOC. On my exam, he has b/l upper extremity tremors, right ankle decreased dorsiflexion, and high steppage gait - all of which are chronic per patient. He reports he felt more unstable withwalking this morning, but this is improving on my exam compared to PT assessment when he was havingrespiratory distress. I do not suspect acute stroke as etiology of symptoms. Symptoms may be due to metabolic disturbanceand improving s/p HD. I will be happen to re-evaluate if he has any persistent symptoms concerning for a new neurologic process. Generalized weakness - resolved with HD treatment. Essential tremor, chronic * Progress Notes - Ale Cavazos MD - 11/08/2021 9:13 AM EDT Subjective Leoncio was seen and interviewed at bedside. Overnight history, recent documentation and the plan for further clinical management was discussed with the multidisciplinary team both prior to, and after rounding. Per report, there were no acute events overnight; there were no tele events overnight. During rounds, He appeared stable post-HD and denied any acute complaint. Interactive and oriented.He voiced concern about the low-frequency tremor he got since last day. He acknowledged the troponin results that might be elevated more likely 2/2 ESRD rather than actual OK. - He denied fever/SOB/CP/palpitation/Ab pain/Leg swelling currently. - He was continued on prescribed diet regimen without specific intolerance/request. - He denied any urinary or bowel movement discomforts. - He had no other specific complaint. I have reviewed the current medication list. Review of Systems Constitutional: Positive for fatigue. Negative for chills and fever. HENT: Positive for congestion, rhinorrhea and sinus pressure. Respiratory: Positive for cough. Negative for shortness of breath and wheezing. Cardiovascular: Negative for chest pain, palpitations and leg swelling. Gastrointestinal: Negative for abdominal pain, constipation, diarrhea and vomiting. Genitourinary: Negative for dysuria. Objective Physical Exam Constitutional: Appearance: Normal appearance. He is obese. HENT: Head: Normocephalic and atraumatic. Cardiovascular: Rate and Rhythm: Normal rate and regular rhythm. Pulses: Normal pulses. Heart sounds: Normal heart sounds. Pulmonary: Effort: Pulmonary effort is normal. Breath sounds: Normal breath sounds. Abdominal: General: Bowel sounds are normal. Palpations: Abdomen is soft. Comments: Protuberant abdomen. No fluid wave. Bowel sounds normal. Non-tender to palpation. Skin: General: Skin is warm. Neurological: General: No focal deficit present. Mental Status: He is alert and oriented to person, place, and time. Mental status is at baseline. Comments: BUE hand low-frequency tremor Psychiatric: Mood and Affect: Mood normal. Behavior: Behavior normal. Thought Content: Thought content normal. Judgment: Judgment normal. ?? Vital Signs: Visit Vitals BP 168/83 (BP Location: Right arm, Patient Position: Lying) Pulse 79 Temp 36.8 ??C (98.3 ??F) (Oral) Resp 14 Ht 1.753 m (5' 9 ) Wt 135 kg (297 lb 6.4 oz) SpO2 96% BMI 43.92 kg/m?? Smoking Status Never Smoker BSA 2.56 m?? No intake or output data in the 24 hours ending 11/08/21 0913 Labs (in last 24 hours): Labs in last 18 hours CBC WBC 10.10 Hb 10.1 (L) Plt 321 Hct 32.1 (L) ANC 4.73 INR 1.0, PTT 29, Anti-Xa <0.11 BMP Na 136 Cl 97 BUN 80 (H) Glu 121 (H) K 6.9 (HH) Co2 23 Cr 10.69 (H) Ca 8.7 (L) iCa 4.4 (L) Mg ??, Phos ?? Lactate ?? LFT AST 16 AlkPhos 117 (H) T Prot 6.7 ALK 7 (L) Bili 0.3 Alb ?? D.Bili ?? Microbiology: Results Procedure Component Value Units Date/Time Blood Culture (Aerobic/Anaerobet Set) [[id number]] Collected: 11/08/21 0656 Order Status: Completed Specimen: Blood from Hand, Right Updated: 11/08/21 09 Culture Culture in lab Blood Culture (Aerobic/Anaerobet Set) [[id number]] Collected: 11/08/21 0539 Order Status: Completed Specimen: Blood from AC, Right Updated: 11/08/21901 Culture Culture in lab Narrative: Low blood volume submitted, results may be compromised SARS CoV-2/COVID-19 by PCR [[id number]] (Normal) Collected: 11/08/21 0401 Order Status: Completed Specimen: Swab from Nasopharynx Updated: 11/08/21 0806 SARS CoV-2/COVID-19 RNA PCR Result Not Detected Narrative: This assay is for in vitro diagnostic use under FDA emergency use authorization only. Negative results do not preclude infection with the SARS CoV-2 virus and should not be the sole basis of a patient treatment/management or public health decision. Follow up testing should be performed according tothe current CDC recommendations. This test was performed using the [employer] Alinity m SARS CoV-2 assay, a PCR-based method. The limit of detection (LoD) for this assay is 100 copies/mL. Use of Alinity m SARS CoV-2 assay in an asymptomatic screening population is intended to be used aspart of an infection control plan, that may include additional preventative measures such a predefined serial testing plan or directed testing of high-risk individuals. Negative results should be considered presumptive and do not preclude current or future infection obtained through community transmission or other exposures. Negative results must be considered in the context of an individual's recent exposures, history, presence of clinical signs and symptoms consistent with COVID-19. Urine Culture - clean catch [[id number]] Collected: 11/08/21 0717 Order Status: Sent Specimen: Urine, Clean Catch Updated: 11/08/21 0752 Influenza A,B & Respiratory Syncytial Virus by PCR [[id number]] Order Status: Sent Specimen: Swab from Nasopharynx Influenza A,B & Respiratory Syncytial Virus by PCR [[id number]] Order Status: Canceled Specimen: Swab from Nasopharynx Imaging (in last 24 hours): US Abdomen RUQ, US Abdomen Doppler Complete Narrative: Exam/Procedure: US ABDOMEN RUQ ordered by ROBERTA FLEMING, [id number] CLINICAL INDICATION: Liver transplant with new asterixis TECHNIQUE: Multiplanar static and cine hong scale ultrasound images of the right abdomen were obtained, accompanied by selective color Doppler ultrasound images. A separate order was placed for a detailed evaluation of the transplant vasculature and additional color and spectral Doppler images of the hepatic v asculature were also obtained. COMPARISON: CT March 02, 2021 and ultrasound September 08, 2017 FINDINGS: Grayscale: Liver: Transplant liver is normal in echogenicity with mildly coarsened echotexture. No suspicious focal liver lesions are detected. Gallbladder: Absent consistent with prior hepatic transplantation. Common Duct: 6 mm Pancreas: The pancreas is obscured by bowel gas. Right kidney: The right kidney is small in size with parenchymal thinning. Length 8.6 cm. Free Fluid: There is no ascites. Duplex: Aorta: The hong scale appearance of the upper abdominal aorta is unremarkable. IVC: The hong scale appearance of the abdominal inferior vena cava is unremarkable. There is normaldirection of blood flow with a normal venous variation on the spectral tracing. Portal Vein: There is antegrade flow within the main portal vein with a velocity of 28.1 cm/sec. Hepatic Arteries: Major transplant hepatic artery at the manju-hepatis: Patent with appropriate flow directionality. Brisk systolic upstrokes. Resistive index of 0.76 Right intrahepatic artery: Patent with appropriate flow directionality. Brisk systolic upstrokes. Resistive index of 0.77 Left intrahepatic artery: Patent with appropriate flow directionality. Brisk systolic upstrokes. Resistive index of 0.73 Hepatic Veins: The hepatic veins are patent at the IVC confluence with normal direction of flow. Impression: 1. Mildly coarsened echotexture of the liver transplant may represent parenchymal disease. 2. Patent hepatic vasculature with appropriate flow directionality. 3. No ascites. 4. Small right kidney with parenchymal thinning consistent with chronic kidney disease. CRITICAL RESULT: No. COMMUNICATION: Per this written report. Dictated by Parisa Weaver on 11/08/2021 8:05 AM Signed by Parisa Weaver on 11/08/2021 8:14 AM XR Chest 1 View Narrative: Exam/Procedure: XR CHEST 1 VIEW ordered by ROBERTA FLEMING, [id number] CLINICAL INDICATION: cough TECHNIQUE: XR CHEST 1 VIEW COMPARISON: June 02, 2021. FINDINGS: Cardiomediastinal silhouette is prominent. Mild pulmonary vascular congestion. No focal consolidation or pneumothorax or pleural effusion. Impression: No focal consolidation. CRITICAL RESULT: No. COMMUNICATION: Per this written report. Dictated by Darío Briggs on 11/08/2021 6:29 AM Signed by Darío Briggs on 11/08/2021 6:[address] Angio Head, CT Angio Neck Narrative: Exam/Procedure: CT ANGIO HEAD, CT ANGIO NECK ordered by BAILEY LEONARDO, [id number] CLINICAL INDICATION: Stroke alert. TECHNIQUE: Contrast-enhanced CT angiogram of the head and neck was obtained after administration of intravenous iodinated contrast using 0.6 mm axial slice thickness with multiplanar reformations and maximum intensity projections. In addition, 3D images were created and reviewed. AI Utilization: This study was analyzed with deep machine learning artificial intelligence for large vessel occlusion detection. Total DLP (Dose-Length Product): 2005 mGy*cm. Please note: The reported value represents the total of one or more individual components during the CT acquisition on this date and at this time, and assuch, the same value may appear in more than one CT report depending on the interpreting/reporting physicians. COMPARISON: CTA head/neck 08/05/2017. FINDINGS: CTA Head: origin of the right CHIEF GUARD. There is no evidence of vascular injury, specifically no arterial stenosis, occlusion, dissection, or pseudoaneurysm. The intracranial venous structures are also fairlywell opacified and appear unremarkable. CTA Neck: There is normal vascular anatomy. There is no evidence of vascular injury, specifically no arterialstenosis, occlusion, dissection, or pseudoaneurysm. There is 0% stenosis of the ICA origins by NASCET criteria. Impression: No evidence of stenosis, occlusion, or aneurysm within the arteries of the head or neck. CRITICAL RESULT: No. COMMUNICATION: Per this written report.. Approved by Erica Kumar on 11/08/2021 3:21 AM By electronically signing this report, I, the attending physician, attest that I have personally reviewed the images/data for the above examination(s) and agree with the final edited report. Dictated by Erica Kumar on 11/08/2021 3:21 AM Signed by Santy Zheng on 11/08/2021 3:[address] Head wo IV contrast Narrative: Exam/Procedure: CT HEAD WO IV CONTRAST ordered by BAILEY LEONARDO, [id number] CLINICAL INDICATION: Stroke alert. TECHNIQUE: Routine contiguous axial CT images of the head were obtained without contrast administration. Total DLP (Dose-Length Product): 2004.78 mGy.cm. Please note: The reported value represents the total of one or more individual components during the CT acquisition on this date and at this time, andas such, the same value may appear in more than one CT report depending on the interpreting/reporting physicians. COMPARISON: CT head 08/05/2017. FINDINGS: No acute intracranial abnormality. No evidence of acute hemorrhage or ischemia. No mass, mass effect, or midline displacement of structures. Normal ventricular size and configuration. Patent basal cisterns. No displaced or depressed calvarial fractures. Mucosal thickening and retention cysts within the bilateral maxillary sinuses. Mastoid air cells are clear. Impression: No acute intracranial abnormality. CRITICAL RESULT: No. COMMUNICATION: Per this written report. Approved by Erica Kumar on 11/08/2021 3:17 AM By electronically signing this report, I, the attending physician, attest that I have personally reviewed the images/data for the above examination(s) and agree with the final edited report. Dictated by Erica Kumar on 11/08/2021 3:17 AM Signed by Santy Zheng on 11/08/2021 3:28 AM No current facility-administered medications on file prior to encounter. Current Outpatient Medications on File Prior to Encounter Medication Sig Dispense Refill ??? ALPRAZolam (Xanax) 0.5 MG tablet Take 0.5 mg by mouth at night if needed for anxiety. ??? aspirin 81 MG EC tablet Take 81 mg by mouth 1 (one) time each day. ??? Calcium Acetate 667 MG tablet Take 1 tablet by mouth 3 (three) times a day with meals. ??? cloNIDine (Catapres) 0.1 MG tablet Take 0.1 mg by mouth 2 (two) times a day. ??? cyclobenzaprine (Flexeril) 10 MG tablet Take 10 mg by mouth 2 (two) times a day if needed. ??? cycloSPORINE modified (NEOral) 100 MG capsule Take 1 capsule by mouth 2 (two) times a day. ??? doxazosin (Cardura) 8 MG tablet Take 8 mg by mouth every night. ??? entecavir (Baraclude) 0.5 MG tablet Take 0.5 mg by mouth 1 (one) time per week. ??? ergocalciferol (ergocalciferol) 1.25 MG (04156 UT) capsule Take 50,000 Units by mouth 3 (three)times a week. ??? HumuLIN N KWIKPEN 100 UNIT/ML injection Inject under the skin 3 (three) times a day with meals.Per sliding scale ??? hydrALAZINE (Apresoline) 100 MG tablet Take 100 mg by mouth 3 (three) times a day. Twice daily always. Midday dose as needed. ??? melatonin 3 MG tablet Take 5 mg by mouth every night. ??? metoprolol succinate XL (Toprol-XL) 100 MG 24 hr tablet Take 1 tablet by mouth every night. ??? mycophenolate (Cellcept) 250 MG capsule Take 250 mg by mouth 2 (two) times a day. ??? NIFEdipine XL (Procardia XL) 90 MG 24 hr tablet Take 1 tablet by mouth 2 (two) times a day. ??? ondansetron (Zofran) 4 MG tablet Take 1 tablet by mouth every 6 (six) hours if needed. ??? pantoprazole (ProtoNix) 40 MG EC tablet Take 40 mg by mouth 2 (two) times a day. Assessment/Plan Principal Problem: Hyperkalemia Leoncio Rollins is a 46 y.o. male PMH: ESRD on HD and h/o SAL cirrhosis s/p liver transplant in 2018, HFrEF, GERD, HTN w/ group II PulmHTN, T2DM, JC, Admitted for: OSH w/ stroke alert w/ abrupt LE weakness and hyperK Mr. Rollins reports he was in his normal state of health until around 10 PM this evening when he transiently lost control of both of his legs and fell to the ground. He denies any facial droop or slurring of his words during this time. His called 911 due to concerns for stroke and he was taken by EMS to [facility]. CT head performed there was reportedly normal. He was offered TPAbut declined due to his history of bleeding esophageal varices prior to his transplant. Other workup at the OSH revealed hyperkalemia to 7.1, so he was given calcium gluconate, insulin, D10, and an albuterol neb prior to transfer. Stroke alert was called upon arrival to . Repeat head CT and CTA he ad/neck here were unremarkable. Neurology was consulted and deemed this not likely to be a stroke. Medicine was called for admission for his hyperkalemia. Patient is on hospital medicine service for management of following clinical issues: #Hyperkalemia #ESRD on HD -ESRD on MWF HD. 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 He was evaluated by renal transplant in 01/2021 and told he would need to lose significant weight to undergo renal transplant. He has not missed any recent HD sessions. Potassium on arrival to OSH was 7.1 and has remained stable here. No EKG changes. =PLAN= -K improved to 5.4 post-HD 11/08. Continue [facility] -Appreciated nephro recs for HD setup, recheck K post-HD and next AM -Monitor on tele -Renally dose all meds, avoid nephrotoxins ?? #Generalized weakness -Suspected etiology is likely multifactorial and includes his hyperkalemia, untreated JC, and possible hepatic encephalopathy based on asterixis on examination. He could have also had some cardiac event today given his elevated troponin. He also endorses recent cough and congestion, so he could have some component of viral illness. CT head and CT head/neck negative for stroke. -Appreciated Neuro recs, keep on ASA for now, no stroke PPX needed -CPAP at night -PT/OT consult ?? #Elevated troponin likely 2/2 type 2 OK/CKD -Troponin elevated at 228 on admission. Repeat currently pending. He does likely have some component of chronic myocardial injury with inability to clear troponin given ESRD, however chart review reveals troponin was 44 at OSH last week. EKG unremarkable here and patient denies chest pain. -Repeat EKG, troponin stable. Continue monitor ?? #SAL cirrhosis s/p liver transplant #BUE hand low-frequency tremor #Chronic hepatitis B infection -Underwent liver transplant in 2018 at [facility] for SAL cirrhosis. Prior to transplant, he had several complications of his cirrhosis include esophageal varices requiring hospitalization for massive UGIB and hepatic encephalopathy. He reports compliance with regular transplant follow-ups at as well as compliance with his immunosuppressive drug regimen. No overt evidence of hepatic dysfunction on labs, but he does endorse waxing and waning confusion over the past month and does have asterixis on exam concerning for hepatic encephalopathy. - Ammonia WNL - U/S RUQ 11/08 showed: 1. Mildly coarsened echotexture of the liver transplant may represent parenchymal disease. 2. Patent hepatic vasculature with appropriate flow directionality. 3. No ascites. 4. Small right kidney with parenchymal thinning consistent with chronic kidney disease. =PLAN= -Resume home cyclosporine, mycophenolate -Patient takes entecavir 1x per week for chronic hep B, will hold now and clarify with patient whenlast dose was. -AAO x 3 with no signs of encephalopathy. -Conservative management of tremor. #HFrEF #Group II pHTN -Resume home metoprolol -Cont Aspirin ?? #JC -CPAP for night ?? #T2DM -SSI ?? #HTN -Resumed clonidine to prevent rebound HTN -Continue home hydralazine at reduced dose and can resume nifedipine until med rec formalized ?? #Chronic macrocytic anemia -Hgb 10.1 on admission, appears consistent with patient's baseline. Likely anemia of chronic disease/CKD. -Continue to monitor, transfuse if <7 ?? #GERD -Resume home PPI ?? #Mood disorder -Resume home PRN xanax #Morbid Obesity Body mass index is 43.92 kg/m??. - Complicates all aspect of cares Decision/Delirium Risk Capacity Intact CAM Negative COVID-19 Status Negative Nutrition Adult diet Diet texture: Regular; Electrolyte Restriction: Renal, Low Potassium DVT PPX Heparin subcutaneous Code status Full Code Skin/Douglas Score No Wound/Ulcer Issue Important Tubes/Lines N/A Disposition/PT/OT Undetermined Home/Caregivers Kym Rollins, Benjy Rollins, Bruce Rollins, luh [place] Barrier to Discharge Electrolytes, PT/OT No future appointments. I personally spent >50% of a total 25 minutes in counseling [id number] at bedside, and coordination of care as documented above. Tariq Cavazos MD Division of Hospital Medicine EPIC Secure Chat preferred, or Pager: [phone] * H&P - Tami Lynch DO - 11/08/2021 4:42 AM EDT History and Physical Chief Complaint Weakness History of Present Illness Leoncio Rollins is a 46 y.o. male with ESRD on MWF HD and h/o SAL cirrhosis s/p liver transplant in 2018 that presented as transfer from OSH for stroke alert. Mr. Rollins reports he was in his normal state of health until around 10 PM this evening when he transiently lost control of both of his legs and fell to the ground. He denies any facial droop or slurring of his words during this time. His called 911 due to concerns for stroke and he was taken by EMS to [facility]. CThead performed there was reportedly normal. He was offered TPA but declined due to his history of bleeding esophageal varices prior to his transplant. Other workup at the OSH revealed hyperkalemia to7.1, so he was given calcium gluconate, insulin, D10, and an albuterol neb prior to transfer. Stroke alert was called upon arrival to . Repeat head CT and CTA head/neck here were unremarkable. Neurology was consulted and deemed this not likely to be a stroke. Medicine was called for admission forhis hyperkalemia. Further questioning from Mr. Rollins reveals he has had waxing and waning bouts of confusion for thepast month. He has difficulty with word findings and experiences brain fog. He admits to making phone calls to people, like his sons, and then forgetting about them hours later. He did not feel confused earlier tonight however when his LE weakness occurred. He thinks some of his confusion could be due to the fact that his home CPAP machine got recalled over a month ago and he has been without it at night. He has also had some sinus congestion and drainage with associated cough that has developed in the past few days. He denies fevers, chills, chest pain, dyspnea, productive cough, abdominal pain, nausea, vomiting, diarrhea, hematochezia, melena, hematemesis, tremor, or rash. Past Medical History: Past Medical History: Diagnosis Date ??? Anemia ??? Chronic kidney disease ??? Conversions - Other Anemia ??? Conversions - Other Benign Prostatic Hypertrophy ??? Conversions - Other Cirrhosis ??? Conversions - Other Diabetes Mellitus ??? Diabetes mellitus type 2 (CMS/HCC) ??? Fatty (change of) liver, not elsewhere classified 10/25/2012 ??? Hematochezia ??? Hypertension ??? 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 Neuropathy ??? Obesity ??? Retinopathy Past Surgical History: Past Surgical History: Procedure Laterality Date ??? BACK SURGERY ??? CHOLECYSTECTOMY ??? LIVER TRANSPLANTATION 2017 ??? OTHER SURGICAL HISTORY N/A History Of Prior Surgery from [facility] ??? TREATMENT, LOWER LEG FRACTURE Home medications: Prior to Admission medications Medication Sig Start Date End Date Taking? Authorizing Provider ALPRAZolam (Xanax) 0.5 MG tablet Take 0.5 mg by mouth at night if needed for anxiety. Historical Provider, aspirin 81 MG EC tablet Take 81 mg by mouth 1 (one) time each day. Historical Provider, Calcium Acetate 667 MG tablet Take 1 tablet by mouth 3 (three) times a day with meals. 03/19/20 Historical Provider, cloNIDine (Catapres) 0.1 MG tablet Take 0.1 mg by mouth 2 (two) times a day. 09/22/17 Historical Provider, cyclobenzaprine (Flexeril) 10 MG tablet Take 10 mg by mouth 2 (two) times a day if needed. 10/08/15 Historical Provider, cycloSPORINE modified (NEOral) 100 MG capsule Take 1 capsule by mouth 2 (two) times a day. 06/25/20Historical Provider, doxazosin (Cardura) 8 MG tablet Take 8 mg by mouth every night. Historical Provider, entecavir (Baraclude) 0.5 MG tablet Take 0.5 mg by mouth 1 (one) time per week. Historical Provider, ergocalciferol (ergocalciferol) 1.25 MG (40028 UT) capsule Take 50,000 Units by mouth 3 (three) times a week. 06/01/16 Historical Provider, HumuLIN N KWIKPEN 100 UNIT/ML injection Inject under the skin 3 (three) times a day with meals. Persliding scale 01/12/21 Historical Provider, hydrALAZINE (Apresoline) 100 MG tablet Take 100 mg by mouth 3 (three) times a day. Twice daily always. Midday dose as needed. Historical Provider, melatonin 3 MG tablet Take 5 mg by mouth every night. Historical Provider, metoprolol succinate XL (Toprol-XL) 100 MG 24 hr tablet Take 1 tablet by mouth every night. 02/11/21 Historical Provider, mycophenolate (Cellcept) 250 MG capsule Take 250 mg by mouth 2 (two) times a day. Historical Provider, NIFEdipine XL (Procardia XL) 90 MG 24 hr tablet Take 1 tablet by mouth 2 (two) times a day. 02/24/21Historical Provider, ondansetron (Zofran) 4 MG tablet Take 1 tablet by mouth every 6 (six) hours if needed. 03/31/20 Historical Provider, pantoprazole (ProtoNix) 40 MG EC tablet Take 40 mg by mouth 2 (two) times a day. 08/03/16 Historical Provider, Allergies: Allergies Allergen Reactions ??? Tacrolimus Other Anxious feeling and muscle jerking. TOLERATED ENVARSUS BETTER THAN PROGRAF. ??? Codeine Anxiety Family History: Family History Problem Relation Name Age of Onset ??? Alcohol abuse Sister ??? Alcohol abuse Father ??? Alcohol abuse Father's Brother ??? Cancer Father ??? Cirrhosis Sister ??? Diabetes Sister ??? Diabetes Mother Social History: Denies ever smoking, EtOH use, or illicit drug use Review of Systems: Review of Systems Constitutional: Positive for fatigue. Negative for chills and fever. HENT: Positive for congestion, rhinorrhea and sinus pressure. Respiratory: Positive for cough. Negative for shortness of breath and wheezing. Cardiovascular: Negative for chest pain, palpitations and leg swelling. Gastrointestinal: Negative for abdominal distention, diarrhea and vomiting. Genitourinary: Negative for difficulty urinating, dysuria and hematuria. Musculoskeletal: Negative for arthralgias, joint swelling and myalgias. Skin: Negative for color change, rash and wound. Neurological: Positive for dizziness and weakness. Negative for tremors and numbness. Psychiatric/Behavioral: Positive for confusion and decreased concentration. Negative for sleep disturbance. Objective Vitals: Vitals: 11/08/21 0315 11/08/21 0330 11/08/21 0338 11/08/21 0422 BP: BP Location: Pulse: 94 81 75 Resp: 18 18 16 Temp: TempSrc: SpO2: 96% 95% 95% Weight: 135 kg (297 lb 6.4 oz) Height: 1.753 m (5' 9 ) BMI: Body mass index is 43.92 kg/m??. Physical Exam Constitutional: General: He is not in acute distress. Appearance: Normal appearance. He is obese. HENT: Head: Normocephalic and atraumatic. Nose: Rhinorrhea present. No congestion. Mouth/Throat: Mouth: Mucous membranes are moist. Pharynx: Oropharynx is clear. No oropharyngeal exudate or posterior oropharyngeal erythema. Eyes: General: No scleral icterus. Conjunctiva/sclera: Conjunctivae normal. Pupils: Pupils are equal, round, and reactive to light. Cardiovascular: Rate and Rhythm: Normal rate and regular rhythm. Heart sounds: No murmur heard. No friction rub. No gallop. Pulmonary: Effort: Pulmonary effort is normal. Breath sounds: No rhonchi or rales. Comments: Very faint end expiratory wheezing Abdominal: Comments: Protuberant abdomen. No fluid wave. Bowel sounds normal. Non-tender to palpation. Musculoskeletal: Right lower leg: No edema. Left lower leg: No edema. Skin: General: Skin is warm and dry. Capillary Refill: Capillary refill takes less than 2 seconds. Coloration: Skin is not jaundiced. Neurological: General: No focal deficit present. Mental Status: He is alert and oriented to person, place, and time. Comments: Asterixis present Psychiatric: Mood and Affect: Mood normal. Behavior: Behavior normal. Labs: Renal Panel: Lab Results Component Value Date NA 141 11/08/2021 K 7.7 (HH) 11/08/2021 CL 100 11/08/2021 CO2 24 11/08/2021 BUN 79 (H) 11/08/2021 CA 9.4 09/22/2017 PHOS 4.8 (H) 03/02/2021 MBD: Lab Results Component Value Date CALCIUM 8.9 11/08/2021 CAION 4.4 (L) 11/08/2021 PHOS 4.8 (H) 03/02/2021 CBC: Lab Results Component Value Date WBC 10.10 11/08/2021 RBC 3.00 (L) 11/08/2021 HGB 10.1 (L) 11/08/2021 HCT 32.1 (L) 11/08/2021 PLT 321 11/08/2021 MCV 107 (H) 11/08/2021 MCH 33.7 (H) 11/08/2021 MCHC 31.5 11/08/2021 RDW 13.8 11/08/2021 NRBC 0.0 11/08/2021 Iron studies: Lab Results Component Value Date TIBC 223 (L) 12/18/2016 Imaging: Imaging reviewed by me. CT Angio Head Result Date: 11/08/2021 Narrative: Exam/Procedure: CT ANGIO HEAD, CT ANGIO NECK ordered by BAILEY LEONARDO, [id number] CLINICAL INDICATION: Stroke alert. TECHNIQUE: Contrast- enhanced CT angiogram of the head and neck was obtained after administration of intravenous iodinated contrast using 0.6 mm axial slice thicknesswith multiplanar reformations and maximum intensity projections. In addition, 3D images were created and reviewed. AI Utilization: This study was analyzed with deep machine learning artificial intelligence for large vessel occlusion detection. Total DLP (Dose-Length Product): 2005 mGy*cm. Please note: The reported value represents the total of one or more individual components during the CT acquisition on this date and at this time, and as such, the same value may appear in more than one CT report depending on the interpreting/reporting physicians. COMPARISON: CTA head/neck 08/05/2017. FINDINGS: CTA Head: origin of the right CHIEF GUARD. There is no evidence of vascular injury, specifically no arterial stenosis, occlusion, dissection, or pseudoaneurysm. The intracranial venous structures are also fairly well opacified and appear unremarkable. CTA Neck: There is normal vascular anatomy. There is no evidence of vascular injury, specifically no arterial stenosis, occlusion, dissection, or pseudoaneurysm. There is 0% stenosis of the ICA origins by NASCET criteria. No evidence of stenosis, occlusion, or aneurysm within the arteries of the head or neck. CRITICAL RESULT: No. COMMUNICATION: Per this written report.. Approved by Erica Kumar on 11/08/2021 3:21 AMBy electronically signing this report, I, the attending physician, attest that I have personally reviewed the images/data for the above examination(s) and agree with the final edited report. Dictatedby Erica Kumar on 11/08/2021 3:21 AM Signed by Santy Zheng on 11/08/2021 3:[address] Head wo IV contrast Result Date: 11/08/2021 Narrative: Exam/Procedure: CT HEAD WO IV CONTRAST ordered by BAILEY LEONARDO, [id number] CLINICAL INDICATION: Stroke alert. TECHNIQUE: Routine contiguous axial CT images of the head were obtainedwithout contrast administration. Total DLP (Dose-Length Product): 2004.78 mGy.cm. Please note: The reported value represents the total of one or more individual components during the CT acquisition on this date and at this time, and as such, the same value may appear in more than one CT report depending on the interpreting/reporting physicians. COMPARISON: CT head 08/05/2017. FINDINGS: No acute intracranial abnormality. No evidence of acute hemorrhage or ischemia. No mass, mass effect, or midline displacement of structures. Normal ventricular size and configuration. Patent basal cisterns. No displaced or depressed calvarial fractures. Mucosal thickening and retention cysts within the bilateral maxillary sinuses. Mastoid air cells are clear. No acute intracranial abnormality. CRITICAL RESULT: No. COMMUNICATION: Per this written report. Approved by Erica Kumar on 11/08/2021 3:17 AM By electronically signing this report, I, the attending physician, attest that I have personally reviewed the images/data for the above examination(s) andagree with the final edited report. Dictated by Erica Kumar on 11/08/2021 3:17 AM Signed by Santy Zheng on 11/08/2021 3:[address] Angio Neck Result Date: 11/08/2021 Narrative: Exam/Procedure: CT ANGIO HEAD, CT ANGIO NECK ordered by BAILEY LEONARDO, [id number] CLINICAL INDICATION: Stroke alert. TECHNIQUE: Contrast- enhanced CT angiogram of the head and neck was obtained after administration of intravenous iodinated contrast using 0.6 mm axial slice thicknesswith multiplanar reformations and maximum intensity projections. In addition, 3D images were created and reviewed. AI Utilization: This study was analyzed with deep machine learning artificial intelligence for large vessel occlusion detection. Total DLP (Dose-Length Product): 2005 mGy*cm. Please note: The reported value represents the total of one or more individual components during the CT acquisition on this date and at this time, and as such, the same value may appear in more than one CT report depending on the interpreting/reporting physicians. COMPARISON: CTA head/neck 08/05/2017. FINDINGS: CTA Head: origin of the right CHIEF GUARD. There is no evidence of vascular injury, specifically no arterial stenosis, occlusion, dissection, or pseudoaneurysm. The intracranial venous structures are also fairly well opacified and appear unremarkable. CTA Neck: There is normal vascular anatomy. There is no evidence of vascular injury, specifically no arterial stenosis, occlusion, dissection, or pseudoaneurysm. There is 0% stenosis of the ICA origins by NASCET criteria. No evidence of stenosis, occlusion, or aneurysm within the arteries of the head or neck. CRITICAL RESULT: No. COMMUNICATION: Per this written report.. Approved by Erica Kumar on 11/08/2021 3:21 AMBy electronically signing this report, I, the attending physician, attest that I have personally reviewed the images/data for the above examination(s) and agree with the final edited report. Dictatedby Erica Kumar on 11/08/2021 3:21 AM Signed by Santy Zheng on 11/08/2021 3:42 AM EKG: Encounter Date: 11/08/21 ECG Adult Result Value EKG DIAGNOSIS CLASS Abnormal Ventricular Rate 78 Atrial Rate 78 VA Interval 228 QRSD Interval 126 QT Interval 422 QTC Interval 481 P [place] 58 R [place] 62 T Wave [place] 62 Diagnosis Sinus rhythm Diagnosis with sinus arrhythmia Diagnosis with 1st degree AV block Diagnosis Nonspecific intraventricular block Diagnosis Abnormal ECG *Note: Due to a large number of results and/or encounters for the requested time period, some results have not been displayed. A complete set of results can be found in Results Review. MAR: PRN medications: dextrose 10 %, dextrose 10 % OR glucagon (human recombinant), dextrose 10 %, dextrose, glucagon (human recombinant) Assessment and Plan Leoncio Rollins is a 46-year-old male with ESRD on HD and h/o SAL cirrhosis s/p liver transplant in 2018 that presents as transfer from OSH for stroke alert due to abrupt LE weakness and was found to be hyperkalemic on admission. Principal Problem: Hyperkalemia #Hyperkalemia #ESRD on HD -ESRD on MWF HD. 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 He was evaluated by [facility] renal transplant in January 2021 and told he would need to lose significant weight to undergo renal transplant. He has not missed any recent HD sessions. Potassium on arrival to OSH was 7.1 and has remained stable here. No EKG changes. -Calcium gluconate, insulin/D10 in ED. Will start lokelma. -Nephrology consulted by ED for dialysis later today -Monitor on tele -Renally dose all meds, avoid nephrotoxins -Consider nutrition consult to discuss renal diet #Generalized weakness -Suspected etiology is likely multifactorial and includes his hyperkalemia, untreated JC, and possible hepatic encephalopathy based on asterixis on examination. He could have also had some cardiac event today given his elevated troponin. He also endorses recent cough and congestion, so he could have some component of viral illness. CT head and CT head/neck negative for stroke. -Ammonia, blood cx, UA, CXR, repeat troponin, COVID and flu swab pending -CPAP ordered at night -PT/OT consult #Elevated troponin -Troponin elevated at 228 on admission. Repeat currently pending. He does likely have some component of chronic myocardial injury with inability to clear troponin given ESRD, however chart review reveals troponin was 44 at OSH last week. EKG unremarkable here and patient denies chest pain. -Repeat EKG, troponin pending #SAL cirrhosis s/p liver transplant with concern for hepatic encephalopathy #Chronic hepatitis B infection -Underwent liver transplant in 2018 at [facility] for SAL cirrhosis. Prior to transplant, he had several complications of his cirrhosis include esophageal varices requiring hospitalization for massive UGIB and hepatic encephalopathy. He reports compliance with regular transplant follow-ups at as well as compliance with his immunosuppressive drug regimen. No overt evidence of hepatic dysfunction on labs, but he does endorse waxing and waning confusion over the past month and does have asterixis on exam concerning for hepatic encephalopathy. -Resume home cyclosporine, mycophenolate -Patient takes entecavir 1x per week for chronic hep B, will hold now and clarify with patient whenlast dose was -Will obtain RUQUS to evaluate liver due to concerns for possible rejection or interval developmentof cirrhosis given asterixis one exam -Consider transplant hepatology consult in AM -Consider lactulose if concern for hepatic encephalopathy continues #HFrEF #Group II pHTN -Resume home metoprolol #JC -Will order CPAP for night #T2DM -SSI ordered #HTN -Resume clonidine to prevent rebound HTN -Will do reduced dose of home hydralazine and hold nifedipine until med rec formalized #Chronic macrocytic anemia -Hgb 10.1 on admission, appears consistent with patient's baseline. Likely anemia of chronic disease/CKD. -Continue to monitor, transfuse if <7 #GERD -Resume home PPI #Mood disorder -Resume home PRN xanax Tami Lynch DO Internal Medicine, PGY-1 Cosigned by Roberta Fleming MD at 11/09/2021 1:10 AM EDT Associated attestation - Roberta Fleming MD - 11/09/2021 1:10 AM EDT I saw and evaluated the patient. I discussed the case with the resident/fellow and agree with the findings and plan as documented. * Consults - Ailyn Francis DO - 11/08/2021 3:40 AM EDTAssociated Order(s): Consult to Neurology I saw and evaluated the patient. I discussed the case with the resident and agree with the findingsand plan as documented. See progress note for further details. Ailyn Francis DO ------ Stroke History and Physical Consult to Neurology Consult performed by: Chiquita Barahona DO Consult ordered by: Bailey Leonardo MD HPI: Leoncio Rollins is a 46 y.o. male with PMH of liver transplant 2018, ESRD with HD M/W/F, GIbleed in 2017 secondary to esophageal varices and requiring several units of blood, DM, HTN who transferred from OSH as a stroke alert. Patient was seen immediately on arrival. LKN: 1030pm Patient went to bed at 10:30 a.m. last night, and reports that he woke up at 11:30 a.m. feeling ???off ???. He went to the bathroom to get a drink of water, however he felt both of his legs give out and called 911; he remembers the entire event. He says this has happened in the past but was never this severe (at that time, his calcium was off). NIH stroke scale is 2 for ataxia, however asterixisnoted on outstretched hands during examination. Blood pressure 186/95 Blood sugar 69 (patient's blood sugar on arrival to outside hospital was 140, received insulin for potassium of 7.1 as well as D 50) Received Ativan 0.5 mg in route Did not receive tPA at outside hospital as patient refused it due to history of severe GI bleed. Use of prior antiplatelet/anticoagulant agents: aspirin ROS: 14-point ROS negative except as mentioned in HPI Past Medical History: Diagnosis Date ??? Anemia ??? Chronic kidney disease ??? Conversions - Other Anemia ??? Conversions - Other Benign Prostatic Hypertrophy ??? Conversions - Other Cirrhosis ??? Conversions - Other Diabetes Mellitus ??? Diabetes mellitus type 2 (CMS/HCC) ??? Fatty (change of) liver, not elsewhere classified 10/25/2012 ??? Hematochezia ??? Hypertension ??? 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 Neuropathy ??? Obesity ??? Retinopathy Past Surgical History: Procedure Laterality Date ??? BACK SURGERY ??? CHOLECYSTECTOMY ??? LIVER TRANSPLANTATION 2017 ??? OTHER SURGICAL HISTORY N/A History Of Prior Surgery from [facility] ??? TREATMENT, LOWER LEG FRACTURE Allergies Allergen Reactions ??? Tacrolimus Other Anxious feeling and muscle jerking. TOLERATED ENVARSUS BETTER THAN PROGRAF. ??? Codeine Anxiety Family History Problem Relation Name Age of Onset ??? Alcohol abuse Sister ??? Alcohol abuse Father ??? Alcohol abuse Father's Brother ??? Cancer Father ??? Cirrhosis Sister ??? Diabetes Sister ??? Diabetes Mother Social History Socioeconomic History ??? Marital status: Spouse name: Not on file ??? Number of children: Not on file ??? Years of education: Not on file ??? Highest education level: Not on file Occupational History ??? Not on file Tobacco Use ??? Smoking status: Never Smoker ??? Smokeless tobacco: Never Used Substance and Sexual Activity ??? Alcohol use: No Comment: Alcoholic Drinks/day: Never Drank Alcohol ??? Drug use: Yes Comment: Drug use: Drug Use ??? Sexual activity: Not on file Other Topics Concern ??? Not on file Social History Narrative Unemployed Social Determinants of Health Financial Resource Strain: Not on file Food Insecurity: Not on file Transportation Needs: Not on file Physical Activity: Not on file Stress: Not on file Social Connections: Not on file Intimate Partner Violence: Not on file Housing Stability: Not on file Current Outpatient Medications Medication Instructions ??? ALPRAZolam (XANAX) 0.5 mg, Oral, Nightly PRN ??? aspirin 81 mg, Oral, Daily ??? Calcium Acetate 667 MG tablet 1 tablet, Oral, 3 times daily with meals ??? cloNIDine (CATAPRES) 0.1 mg, Oral, 2 times daily ??? cyclobenzaprine (FLEXERIL) 10 mg, Oral, 2 times daily PRN ??? cycloSPORINE modified (NEOral) 100 MG capsule 1 capsule, Oral, 2 times daily ??? doxazosin (CARDURA) 8 mg, Oral, Nightly ??? entecavir (BARACLUDE) 0.5 mg, Oral, Weekly ??? ergocalciferol (VITAMIN D-2) 50,000 Units, Oral, 3 times weekly ??? HumuLIN N KWIKPEN 100 UNIT/ML injection Subcutaneous, 3 times daily with meals, Per sliding scale ??? hydrALAZINE (APRESOLINE) 100 mg, Oral, 3 times daily, Twice daily always. Midday dose as needed. ??? melatonin 5 mg, Oral, Nightly ??? metoprolol succinate XL (Toprol-XL) 100 MG 24 hr tablet 1 tablet, Oral, Nightly ??? mycophenolate (CELLCEPT) 250 mg, Oral, 2 times daily ??? NIFEdipine XL (Procardia XL) 90 MG 24 hr tablet 1 tablet, Oral, 2 times daily ??? ondansetron (Zofran) 4 MG tablet 1 tablet, Oral, Every 6 hours PRN ??? pantoprazole (PROTONIX) 40 mg, Oral, 2 times daily Vitals: Visit Vitals BP 158/69 (BP Location: Right arm) Pulse 85 Temp 36.6 ??C (97.8 ??F) (Oral) Resp 17 Ht 1.753 m (5' 9 ) Wt 135 kg (297 lb 6.4 oz) SpO2 97% BMI 43.92 kg/m?? Smoking Status Never Smoker BSA 2.56 m?? Exam: GEN: lying in bed, NAD, obese Ears, Nose, Mouth, Throat: Mucous membranes appear moist. No appreciable hearing impairment. Nares patent. Eyes: Anicteric sclera. No appreciable conjunctival injection. CV: 2+ capillary refill, no LE edema PULM: airways patent, non labored breathing Gastrointestinal: No appreciable abdominal distention. No appreciable abdominal tenderness. Genitourinary: No Anders catheter present. No appreciable bladder distention. EXT: no clubbing, cyanosis, or erythema; fistula on LUE SKIN: no rashes or lesions NEURO: Mental Status: A&O x 3, interactive, able to follow commands Speech: Intact fluency and comprehension CN 2-12: II - PERRLA, VFs full III, IV, - EOMI V - Facial sensation intact VII - no facial droop VIII - Auditory acuity intact IX, X - Palate elevation symmetric, uvula midline XI - Trapezius strength intact XII - Tongue protrudes midline Motor: RUE: No drift LUE: No drift RLE: No drift LLE: No drift Sensory: intact light touch throughout Reflexes: 2+ throughout Coordination: Tremor noted in bilateral upper extremities, with asterixis on outstretched arms; [id number] ataxic bilateral Gait/Station: deferred Cortical: No Extinction Radiologic Exams: CT head/CTA head/neck findings: No acute abnormalities on CT head, no large vessel occlusion on CTA CT Head and CTA were reviewed using Maribell and discussed with Attending residential property consultant. NIH Stroke Scale: Interval: On arrival Date: 11/08 Time: 303am 1a Level of consciousness: 0=alert; keenly responsive 1b. LOC questions: 0=Performs both tasks correctly 1c. LOC commands: 0=Performs both tasks correctly 2. Best Gaze: 0=normal 3. Visual: 0=No visual loss 4. Facial Palsy: 0=Normal symmetric movement 5a. Motor left arm: 0=No drift, limb holds 90 (or 45) degrees for full 10 seconds 5b. Motor right arm: 0=No drift, limb holds 90 (or 45) degrees for full 10 seconds 6a. motor left le=No drift, limb holds 90 (or 45) degrees for full 10 seconds 6b Motor right le=No drift, limb holds 90 (or 45) degrees for full 10 seconds 7. Limb Ataxia: 2=Present in two limbs 8. Sensory: 0=Normal; no sensory loss 9. Best Language: 0=No aphasia, normal 10. Dysarthria: 0=Normal 11. Extinction and Inattention: 0=No abnormality 12. Distal motor function: 0=Normal Total: 2 Pre-morbid mRS: 0 No symptoms at all Assessment/Plan: Leoncio Rollins is a 46 y.o. male w PMH of liver transplant 2018, ESRD with HD M/W/F, GI bleed in 2017 secondary to esophageal varices and requiring several units of blood, DM, HTN who transferredfrom OSH as a stroke alert. Patient was seen immediately on arrival. Initial NIHSS: 2 Mechanism/Etiology: not likely stroke Candidate for IV thrombolysis (tpa): No, out of window and refused at OSH Candidate for thrombectomy: No LVO Risk Factors: HTN, diabetes mellitus Ddx: non focal neurologic exam and in the setting of hyperkalemia to 7.1, Cr to 11, BUN to 81, BP 180s/90s most concerning for metabolic etiology of weakness (electrolyte abnormalities) rather than stroke; with asterixis on exam and elevated BUN patient could also have experienced myoclonus which caused him to fall. Patient's shaking most likely not seizure as he remembered the entire episode. PLAN: - No acute indication for further neurological workup requiring admission at this time - Recommend ammonia and medicine consultation for metabolic derangements (patient with M/W/F dialysis) - Patient already on aspirin at home, could consider atorvastatin for stroke prevention (however with history of liver disease risks and benefits should be assessed) Other comorbidities, POA Hypertension, essential, Diabetes, Type II, Other Electrolyte Disorders and Chronic Kidney Disease Discussed case with residential property consultant attending Dr. Goode. Chiquita Barahona DO PGY-2, Neurology [phone] * Progress Notes - Uday Shipley - 11/08/2021 3:18 AM EDT Pharmacy Stroke Evaluation Note Leoncio Rollins is a 46 y.o. male that presents from OSH with symptoms of extremity weakness andgait disturbance. Last known well: 2230. Patient reportedly went to bed at 2230 and woke up at 2330to get a drink of water and fell. Pt was then taken to OSH. PMH: Past Medical History: Diagnosis Date Anemia Chronic kidney disease Conversions - Other Anemia Conversions - Other Benign Prostatic Hypertrophy Conversions - Other Cirrhosis Conversions - Other Diabetes Mellitus Diabetes mellitus type 2 (CMS/HCC) Fatty (change of) liver, not elsewhere classified 10/25/2012 Hematochezia Hypertension Liver cirrhosis secondary to SAL (nonalcoholic steatohepatitis) (CMS/HCC) Neuropathy Obesity Retinopathy Time of arrival to the ED: 11/08/2021 3:09 AM Pertinent Vitals, Labs, and Medications Baseline CT: Rules out hemorrhage or non-stroke cause of deficit Blood Pressure: BP Readings from Last 1 Encounters: 10/01/21 (!) 204/179 Laboratory Values: INR (no units) Date/Time Value 03/02/2021 1257 1.0 Platelet Count (10*3/uL) Date/Time Value 05/14/2021 0800 169 POCT Glucose (mg/dL) Date/Time Value 11/08/2021 0259 69 (L) NIHSS: 2, with the ataxia thought to be due to asterixis Medications Prior to Arrival: Anticoagulants: Patient is not prescribed anticoagulation. Antiplatelets: Patient is not prescribed oral antiplatelet agents. Evaluation for the Use of Thrombolytics: Patient was evaluated for thrombolytics and determined: Patient is not a candidate for alteplase. Contraindications: Outside the 3-4.5 hour window and Etiology not consistent with stroke. Confirmedwith neurology team that this patient is out of the window and symptoms can likely be contributed to ESRD. Confirmed no other pharmacy intervention needed at this time. Uday Shipley 11/08/2021 3:12 AM * ED Provider Notes - Bindu Short MD - 11/08/2021 2:55 AM EDT HPI No chief complaint on file. HPI Patient is a 46-year-old male with complex past medical history including diabetes, liver failure, end-stage kidney disease on dialysis presents to emergency department as a stroke alert. Per report patient was ambulating at 11:00 p.m. on 11/07 when he acutely was unable to walk and fell down. He states that after this he was also not able to move as normal. He was seen at the outside hospital, had a CT scan which showed no acute bleeding. Patient past history of esophageal varices and this wasnot given tPA. Of note patient was also found to be hyperkalemic with a potassium of 7.1. At this hospital he was given 500 of calcium chloride, insulin as well as dextrose. Patient is complaining offeeling anxious injury, states that he has not previously had these symptoms. No data recorded Patient History Past Medical History: Diagnosis Date ??? Anemia ??? Chronic kidney disease ??? Conversions - Other Anemia ??? Conversions - Other Benign Prostatic Hypertrophy ??? Conversions - Other Cirrhosis ??? Conversions - Other Diabetes Mellitus ??? Diabetes mellitus type 2 (CMS/HCC) ??? Fatty (change of) liver, not elsewhere classified 10/25/2012 ??? Hematochezia ??? Hypertension ??? 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 Neuropathy ??? Obesity ??? Retinopathy Past Surgical History: Procedure Laterality Date ??? BACK SURGERY ??? CHOLECYSTECTOMY ??? LIVER TRANSPLANTATION 2017 ??? OTHER SURGICAL HISTORY N/A History Of Prior Surgery from [employer] ??? TREATMENT, LOWER LEG FRACTURE Family History Problem Relation Name Age of Onset ??? Alcohol abuse Sister ??? Alcohol abuse Father ??? Alcohol abuse Father's Brother ??? Cancer Father ??? Cirrhosis Sister ??? Diabetes Sister ??? Diabetes Mother Tobacco Use ??? Smoking status: Never Smoker ??? Smokeless tobacco: Never Used Substance Use Topics ??? Alcohol use: No Comment: Alcoholic Drinks/day: Never Drank Alcohol ??? Drug use: Yes Comment: Drug use: Drug Use Immunization History Immunization History: reviewed Allergies: Allergies Allergen Reactions ??? Tacrolimus Other Anxious feeling and muscle jerking. TOLERATED ENVARSUS BETTER THAN PROGRAF. ??? Codeine Anxiety Review of Systems Review of Systems Gastrointestinal: Negative for abdominal pain. Neurological: Positive for tremors and weakness. Psychiatric/Behavioral: The patient is nervous/anxious. All other systems reviewed and are negative. Physical Exam ED Triage Vitals Temp Pulse Resp BP -- -- -- -- SpO2 Temp src Heart Rate Source Patient Position -- -- -- -- BP Location FiO2 (%) -- -- Physical Exam Vitals and nursing note reviewed. Constitutional: Appearance: He is well-developed. HENT: Head: Normocephalic and atraumatic. Eyes: Conjunctiva/sclera: Conjunctivae normal. Cardiovascular: Rate and Rhythm: Normal rate and regular rhythm. Heart sounds: No murmur heard. Pulmonary: Effort: Pulmonary effort is normal. No respiratory distress. Breath sounds: Normal breath sounds. Abdominal: General: There is distension. Palpations: Abdomen is soft. Tenderness: There is no abdominal tenderness. Musculoskeletal: Cervical back: Neck supple. Comments: Patient has a fistula on the left arm. Skin: General: Skin is warm and dry. Capillary Refill: Capillary refill takes less than 2 seconds. Neurological: Mental Status: He is alert and oriented to person, place, and time. Motor: Weakness present. Comments: Asterixis Psychiatric: Mood and Affect: Mood normal. Behavior: Behavior normal. ED Course & [facility] Clinical Impressions as of 11/08/21 0417 Asterixis ED Disposition: [facility] Patient is a 46-year-old male presents emergency department as a stroke alert red. Previous historyas above. On physical exam patient has asterixis. Patient is hemodynamically stable, has no acute motor or sensory deficits. Allergy was present at the alert as was I. Differential diagnosis for thispatient includes acute stroke, hypoglycemia, hyperkalemia, other electrolyte abnormality, hepatic encephalopathy among others. Patient initial glucose in the CT scanner was 69, believe this is probably from patient getting insulin and glucose at the outside hospital. Gave patient D25. Recheck potassium here. Potassium continued to be elevated at 7.1, redosed patient with some gluconate, insulin, and dextrose as well as albuterol.. Called nephrology regarding patient, due to concern for need foremergent dialysis with severe kidney failure and hyperkalemia. Also discussed patient with [facility] for admission given hyperkalemia. Labs were independently interpreted by me and imaging was independently reviewed by me Lab Results Labs Reviewed CBC WITH AUTO DIFFERENTIAL - Abnormal Result Value WBC Count 10.10 RBC Count 3.00 (*) HGB 10.1 (*) HCT 32.1 (*) Platelet Count 321 MCV 107 (*) MCH 33.7 (*) MCHC 31.5 RDW 13.8 MPV 9.8 nRBC 0.0 Differential Type Automated Neutrophils % 47.0 Lymphocytes % 40.0 Monocytes % 9.0 Eosinophils % 1.0 Basophils % 0.0 Immature Granulocytes % 3.0 Neutrophils Absolute 4.73 Lymphocytes Absolute 4.01 (*) Monocytes Absolute 0.87 Eosinophils Absolute 0.12 Basophils Absolute 0.04 Immature Granulocytes Absolute 0.33 (*) Narrative: Therapeutic decision making should be based on absolute values, rather than percentages. COMPREHENSIVE METABOLIC PANEL, PLASMA - Abnormal Glucose, Plasma 70 (*) BUN, Plasma 79 (*) Creatinine, Plasma 10.32 (*) BUN/Creatinine Ratio 8 Sodium, Plasma 141 Potassium, Plasma 7.7 (*) Chloride, Plasma 100 CO2, Plasma 24 Anion Gap 17 (*) Total Calcium, Plasma 8.9 Total Protein 7.6 Albumin, Plasma 4.7 AST, Plasma 16 ALT, Plasma 9 (*) Alkaline Phosphatase, Plasma 124 (*) Total Bilirubin, Plasma 0.3 eGFR 5 (*) eGFR, if AFR/AM 7 (*) TROPONIN T, HIGH SENSITIVITY, 0 HOUR, PLASMA, REFLEX TO 2 HOUR - Abnormal Troponin T, High Sensitivity, 0 Hour 228 (*) BLOOD GAS PANEL, VENOUS - Abnormal pH, Venous 7.35 pCO2, Venous 55 pO2, Venous 50 (*) SO2, Measured, Venous 82.3 (*) Base Excess, Venous 3.8 (*) Bicarbonate, Calculated, Venous 30 (*) Hematocrit, Whole Blood 29.0 (*) Sodium, Whole Blood 141 Potassium, Whole Blood 7.0 (*) Chloride, Whole Blood 98 Glucose, Whole Blood 85 Lactate, Venous, Whole Blood 0.8 Ionized Calcium, Whole Blood 4.4 (*) POTASSIUM, PLASMA - Abnormal Potassium, Plasma 7.5 (*) POCT GLUCOSE METER UNSOLICITED RESULTS - Abnormal POCT Glucose 69 (*) Comment Global Sales Director ID Brigitte Thurman Device ID [id number] Specimen Type POC Capillary PROTHROMBIN TIME(PT) / INR - Normal Prothrombin Time 13.8 INR 1.0 Narrative: OPTIMAL INR RANGES FOR PATIENT ON ORAL ANTICOAGULANT THERAPY Prevention of venous thromboembolism INR 2.0 to 3.0 In patients with heart disease: Atrial fibrillation INR 2.0 to 3.0 Valvular heart disease INR 2.0 to 3.0 Tissue heart valves INR 2.0 to 3.0 Mechanical prosthetic valves INR 2.5 to 3.5 Prevention of recurrent OK INR 2.5 to 3.5 ANTI XA LEVEL LOW MOLECULAR WEIGHT HEPARIN - Normal Anti Xa Level Low Molecular Weight Heparin <0.11 Narrative: Therapeutic Range: LMWH enoxaparin 1mg/kg/dose, 12hrs - peak (3-5 hours after dose): 0.5 - 1.0 IU/mL LMWH enoxaparin 1.5mg/kg/dose, 24hrs - peak (3-5 hours after dose): 1.0 - 2.0 IU/mL LMWH enoxaparin prophylaxis: Not established APTT - Normal aPTT 29 SARS COV-2/COVID-19 BY PCR URINE CULTURE BLOOD CULTURE (AEROBIC/ANAEROBIC SET) BLOOD CULTURE (AEROBIC/ANAEROBIC SET) INFLUENZA A,B AND RESPIRATORY SYNCYTIAL VIRUS (RSV) BY PCR ED PROTOCOL HIV 1/2 ANTIBODY/ANTIGEN SCREEN Narrative: The following orders were created for panel order ED Protocol - HIV 1/2 Antibody/Antigen Screen. Procedure Abnormality Status --------- ------ HIV 1 & 2 Antibody/Antige...[[id number]] In process Please view results for these tests on the individual orders. [facility] [employer] HEPATITIS C ANTIBODY HIV 1/2 ANTIBODY/ANTIGEN SCREEN EXTRA TUBES Narrative: The following orders were created for panel order Extra Tubes. Procedure Abnormality Status --------- ------ Gold Top[[id number]] In process Please view results for these tests on the individual orders. EXTRA TUBE GOLD TOP COMPREHENSIVE METABOLIC PANEL, PLASMA URINALYSIS WITH REFLEX MICROSCOPIC AMMONIA, PLASMA ACUTE HEPATITIS PANEL TROPONIN T, HIGH SENSITIVITY, 2 HOUR, PLASMA HEPATITIS B SURFACE ANTIBODY POCT GLUCOSE POCT GLUCOSE POCT GLUCOSE POCT GLUCOSE POCT GLUCOSE POCT GLUCOSE POCT GLUCOSE POCT GLUCOSE POCT GLUCOSE METER UNSOLICITED RESULTS POCT Glucose 96 Comment Global Sales Director ID Markus Oropeza Device ID [id number] Specimen Type POC Capillary Imaging Results CT Head wo IV contrast Final Result No acute intracranial abnormality. CRITICAL RESULT: No. COMMUNICATION: Per this written report. Approved by Erica Kumar on 11/08/2021 3:17 AM By electronically signing this report, I, the attending physician, attest that I have personally reviewed the images/data for the above examination(s) and agree with the final edited report. Dictated by Erica Kumar on 11/08/2021 3:17 AM Signed by Santy Zheng on 11/08/2021 3:[address] Angio Head Final Result No evidence of stenosis, occlusion, or aneurysm within the arteries of the head or neck. CRITICAL RESULT: No. COMMUNICATION: Per this written report.. Approved by Erica Kumar on 11/08/2021 3:21 AM By electronically signing this report, I, the attending physician, attest that I have personally reviewed the images/data for the above examination(s) and agree with the final edited report. Dictated by Erica Kumar on 11/08/2021 3:21 AM Signed by Santy Zheng on 11/08/2021 3:[address] Angio Neck Final Result No evidence of stenosis, occlusion, or aneurysm within the arteries of the head or neck. CRITICAL RESULT: No. COMMUNICATION: Per this written report.. Approved by Erica Kumar on 11/08/2021 3:21 AM By electronically signing this report, I, the attending physician, attest that I have personally reviewed the images/data for the above examination(s) and agree with the final edited report. Dictated by Erica Kumar on 11/08/2021 3:21 AM Signed by Santy Zheng on 11/08/2021 3:42 AM ED Prescriptions None Sign Off Checklist Clinical Impression: Complete ED Disposition: Complete Bindu Short MD Resident 11/08/21 0542 Cosigned by Bailey Leonardo MD at 11/08/2021 9:12 PM EDT Associated attestation - Bailey Leonardo MD - 11/08/2021 9:12 PM EDT I saw and evaluated the patient with the resident/fellow. I discussed the case with the resident/fellow and agree with the findings and plan as documented. * ED Triage Notes - Blake Altman RN - 11/08/2021 2:55 AM EDT Pt arrives as a KRUPA, LKN 2330, pt got up and fell and never regained his balance. (-) CT at OSH butlab work shown potassium of 7.1 and BS upon arrival is 69. Hx of dialysis and liver transplant. documented in this encounter Plan of Treatment Not on file documented as of this encounter Procedures Procedure Name Priority Date/Time Associated Diagnosis Comments POCT GLUCOSE METER UNSOLICITED RESULTS Routine 11/09/2021 11:47 AM EDT HEMODIALYSIS INPATIENT Routine 9:24 AM EDT ECG ADULT STAT 11/09/2021 9:14 AM EDT OXYGEN THERAPY Routine 11/09/2021 9:03 AM EDT OXYGEN THERAPY Routine 11/09/2021 9:03 AM EDT POCT GLUCOSE METER UNSOLICITED RESULTS Routine 11/09/2021 5:53 AM EDT EXTRA TUBE LAVENDER TOP Routine 11/10/19 2:32 AM EDT EXTRA TUBES Routine 11/09/2021 2:32 AM EDT RENAL FUNCTION PANEL, PLASMA Routine 11/09/2021 2:32 AM EDT OXYGEN THERAPY STAT 11/08/2021 8:00 PM EDT POCT GLUCOSE METER UNSOLICITED RESULTS Routine 11/08/2021 7:49 PM EDT POCT GLUCOSE METER UNSOLICITED RESULTS Routine 11/08/2021 4:26 PM EDT POCT GLUCOSE METER UNSOLICITED RESULTS Routine 11/08/2021 1:23 PM EDT POTASSIUM, PLASMA Routine 11/08/2021 1:0 5 PM EDT POCT GLUCOSE METER UNSOLICITED RESULTS Routine 11/08/2021 8:08 AM EDT OXYGEN THERAPY STAT 11/08/2021 8:00 AM EDT URINALYSIS MICROSCOPIC FOR UA REFLEX Routine 11/08/2021 7:17 AM EDT URINALYSIS WITH REFLEX MICROSCOPIC Routine 11/08/2021 7:17 AM EDT URINE CULTURE Routine 11/08/2021 7:17 AM EDT BLOOD CULTURE (AEROBIC/ANAEROBIC SET) Routine 11/08/2021 6:56 AM EDT POTASSIUM, PLASMA Routine 11/08/2021 6:5 6 AM EDT TROPONIN T, HIGH SENSITIVITY, 2 HOUR, PLASMA Timed 11/08/2021 6:16 AM EDT US ABDOMEN DOPPLER COMPLETE Routine 11/08/2021 6:00 AM EDT US ABDOMEN RUQ Routine 11/08/2021 6:00 AM EDT POCT GLUCOSE METER UNSOLICITED RESULTS Routine 11/08/2021 5:43 AM EDT ACUTE HEPATITIS PANEL Routine 11/08/2021 5:39 AM EDT HC HEPATITIS B SURFACE AB TEST - HEPATITIS B SURFACE ANTIBODY Add-On 11/08/2021 5:39 AM EDT BLOOD CULTURE (AEROBIC/ANAEROBIC SET) Routine 11/08/2021 5:39 AM EDT AMMONIA, PLASMA Routine 11/08/2021 5:39 AM EDT COMPREHENSIVE METABOLIC PANEL, PLASMA Routine 11/08/2021 5:39 AM EDT ECG ADULT STAT 11/08/2021 5:26 AM EDT NON-INVASIVE VENTILATION Routine 11/08/2021 5:12 AM EDT HEMODIALYSIS INPATIENT Routine 5:05 AM EDT OXYGEN THERAPY STAT 11/08/2021 5:03 AM EDT OXYGEN THERAPY STAT 11/08/2021 5:03 AM EDT XR CHEST 1 VIEW STAT 11/08/2021 4:59 AM EDT EXTRA TUBE GOLD TOP Routine 11/08/2021 4 :07 AM EDT EXTRA TUBES Routine 11/08/2021 4:07 AM EDT SARS COV-2/COVID-19 BY PCR STAT 11/08/2021 4:01 AM EDT INFLUENZA A,B AND RESPIRATORY SYNCYTIAL VIRUS (RSV) BY PCR Add-On 11/08/2021 4:01 AM EDT ED PROTOCOL HIV 1/2 ANTIBODY/ANTIGEN SCREEN W/REFLEX TO HIV 1/2 ANTIBODY DIFFERENTIATION STAT 11/08/2021 3:59 AM EDT TROPONIN T, HIGH SENSITIVITY, 0 HOUR, PLASMA, REFLEX TO 2 HOUR STAT 11/08/2021 3:59 AM EDT HIV 1/2 ANTIBODY/ANTIGEN SCREEN WITH REFLEX TO HIV I/II DIFFERENTIATION STAT 11/08/2021 3:59 AM EDT HEPATITIS C ANTIBODY - ED W/REFLEX TO HCV QUANT PCR STAT 11/08/2021 3:59 AM EDT POTASSIUM, PLASMA STAT 11/08/2021 3:5 9 AM EDT ECG ADULT STAT 11/08/2021 3:46 AM EDT BLOOD GAS PANEL, VENOUS STAT 11/09/19 3:17 AM EDT POCT GLUCOSE METER UNSOLICITED RESULTS Routine 11/08/2021 3:[address] ANGIO NECK STAT 11/08/2021 3:[address] HEAD WO IV CONTRAST STAT 3:[address] ANGIO HEAD STAT 11/08/2021 3:11 AM EDT APTT STAT 11/08/2021 3:10 AM EDT PROTHROMBIN TIME(PT) / INR STAT 11/08/2021 3:10 AM EDT ANTI XA LEVEL LOW MOLECULAR WEIGHT HEPARIN STAT 11/08/2021 3:10 AM EDT CBC WITH AUTO DIFFERENTIAL STAT 11/08/2021 3:10 AM EDT COMPREHENSIVE METABOLIC PANEL, PLASMA STAT 11/08/2021 3:10 AM EDT POCT GLUCOSE METER UNSOLICITED RESULTS Routine 11/08/2021 2:59 AM EDT OXYGEN THERAPY STAT 11/08/2021 2:58 AM EDT documented in this encounter Results * (ABNORMAL) POCT glucose meter (11/09/2021 11:47 AM EDT) POCT Glucose 163(H) 74 - 99 mg/dL 11/09/2021 11:50 AM EDT [facility] Comment:Accuracy of a glucos e result obtained from a capillary whole blood specimen relies upon adequate, non-compromised capillary blood flow. If the capillary glucose result is not consistent with the patient's clinical signs and symptoms, glucose testing should be repeated with either an arterial or venous sample on the glucometer or sent to the main labortory for testing. Comment 11/09/2021 11:50 AM EDT [facility] Global Sales Director ID Leah Bowers [id number] 11:50 AM EDT [facility] Device ID [id number] 11/09/2021 11:50 AM EDT [facility] Specimen Type POC Capillary 11/09/2021 11:50 AM EDT [facility] Blood Capillary blood specimen / Unknown 11/09/2021 11:47 AM EDT 11/09/2021 11:50 AM EDT us Nani Coreas MD LAB POINT OF CARE TEST DOCKED DEVICE UNSOLICITED RESULTS Final Result [facility] [address] [place] [id number] * ECG Adult (11/09/2021 9:14 AM EDT) EKG DIAGNOSIS CLASS Abnormal MUSE ECG Ventricular Rate 75 BPM MUSE ECG Atrial Rate 75 BPM MUSE ECG VA Interval 228 ms MUSE ECG QRSD Interval 114 ms MUSE ECG QT Interval 430 ms MUSE ECG QTC Interval 480 ms MUSE ECG P [place] 58 degrees MUSE ECG R [place] 60 degrees MUSE ECG T Wave [place] 86 degrees MUSE ECG Diagnosis Sinus rhythm MUSE ECG Diagnosis with sinus arrhythmia MUSE ECG Diagnosis with 1st degree AV block MUSE ECG Diagnosis Prolonged QT MUSE ECG Diagnosis Abnormal ECG MUSE ECG Diagnosis Confirmed by Wilmer Lema ([id number]) on 11/09/2021 2:05:46 PM MUSE ECG 11/09/2021 9:14 AM EDT 11/09/2021 2:05 PM EDT us Roberta Fleming MD ECG ORDERABLES Final Res ult MUSE ECG * (ABNORMAL) POCT glucose meter (11/09/2021 5:53 AM EDT) POCT Glucose 129(H) 74 - 99 mg/dL 11/09/2021 5:55 AM EDT [facility] Comment:Accuracy of a glucos e result obtained from a capillary whole blood specimen relies upon adequate, non-compromised capillary blood flow. If the capillary glucose result is not consistent with the patient's clinical signs and symptoms, glucose testing should be repeated with either an arterial or venous sample on the glucometer or sent to the main labortory for testing. Comment 11/09/2021 5:55 AM EDT [facility] Global Sales Director ID Daiana Schwartz 11/09/2021 5:55 AM EDT [facility] Device ID [id number] 11/09/2021 5:55 AM EDT [facility] Specimen Type POC Capillary 11/09/2021 5:55 AM EDT [facility] Blood Capillary blood specimen / Unknown 11/09/2021 5:53 AM EDT 11/09/2021 5:55 AM EDT us Ale Cavazos MD LAB POINT OF CARE TE ST DOCKED DEVICE UNSOLICITED RESULTS Final Result Performing Organization Address City/[facility]/ZIP Co de Phone Number [facility] [address] [place] [address] * Lavender Top (11/09/2021 2:32 AM EDT) [facility] Extra Hold for add-ons. 11/09/2021 6:02 AM EDT [facility] Comment:Auto resulted. Blood Venous blood specimen / Unknown 11/09/2021 2:32 AM EDT 11/09/2021 3:21 AM EDT us Ale Cavazos MD LAB BLOOD ORDERABLES Final R esult Performing Organization Address [facility] Co de Phone Number [facility] [address] [place] [address] * (ABNORMAL) Renal function panel (11/09/2021 2:32 AM EDT) [facility] Glucose, Plasma 115(H) 74 - 99 mg/dL 11/09/2021 4:04 AM EDT [facility] BUN, Plasma 58(H) 7 - 21 mg/dL 11/09/2021 4:04 AM EDT [facility] Creatinine, Plasma 9.04(H) 0.80 - 1.30 mg/dL 11/09/2021 4:04 AM EDT [facility] BUN/Creatinine Ratio 6 11/09/2021 4:04 AM EDT [facility] Sodium, Plasma 136 136 - 145 mmol/L 11/09/2021 4:04 AM EDT [facility] Potassium, Plasma 6.4(H) 3.7 - 4.8 mmol/L 11/09/2021 4:04 AM EDT [facility] Comment:Reference range for Serum potassium is 0.2 to 0.5 mmol/L higher than Plasma range. Chloride, Plasma 97 97 - 107 mmol/L 11/09/2021 4:04 AM EDT [facility] CO2, Plasma 24 22 - 29 mmol/L 11/09/2021 4:04 AM EDT [facility] Anion Gap 15 6 - 16 mmol/L 11/09/2021 4:04 AM EDT [facility] Total Calcium, Plasma 7.9(L) 8.9 - 10.2 mg/dL 11/09/2021 4:04 AM EDT [facility] Phosphorus, Plasma 5.0(H) 2.5 - 4.5 mg/dL 11/09/2021 4:04 AM EDT [facility] Albumin, Plasma 4.2 3.5 - 5.2 g/dL 11/09/2021 4:04 AM EDT [facility] eGFR 6(L) >60 mL/min/1.7 3m*2 11/09/2021 4:04 AM EDT [facility] Comment:eGFR = estimated GFR ; eGFR units = mL/min/1.73 sq meters Chronic Kidney Disease is considered if eGFR <60 mL/min/1.73 sq meters Kidney failure is considered if eGFR is <15 mL/min/1.73 sq meters. eGFR assumes steady state plasma creatinine concentration; not applicable if renal function is rapidly changing or patient is on dialysis. eGFR, if AFR/AM 8(L) >60 mL/min/1.7 3m*2 11/09/2021 4:04 AM EDT [facility] Comment:eGFR = estimated GFR ; eGFR units = mL/min/1.73 sq meters Chronic Kidney Disease is considered if eGFR <60 mL/min/1.73 sq meters Kidney failure is considered if eGFR is <15 mL/min/1.73 sq meters. eGFR assumes steady state plasma creatinine concentration; not applicable if renal function is rapidly changing or patient is on dialysis. Blood Venous blood specimen / Unknown Venipuncture / Unknown 11/09/2021 2:32 AM EDT 11/09/2021 3:35 AM EDT us Ale Cavazos MD LAB BLOOD ORDERABLES Final R esult [facility] [address] [place] [address] * (ABNORMAL) POCT glucose meter (11/08/2021 7:49 PM EDT) POCT Glucose 143(H) 74 - 99 mg/dL 11/08/2021 8:05 PM EDT [facility] Comment:Accuracy of a glucos e result obtained from a capillary whole blood specimen relies upon adequate, non-compromised capillary blood flow. If the capillary glucose result is not consistent with the patient's clinical signs and symptoms, glucose testing should be repeated with either an arterial or venous sample on the glucometer or sent to the main labortory for testing. Comment 11/08/2021 8:05 PM EDT [facility] Global Sales Director ID Daiana Schwartz 11/08/2021 8:05 PM EDT [facility] Device ID [id number] 11/08/2021 8:05 PM EDT [facility] Specimen Type POC Capillary 11/08/2021 8:05 PM EDT [facility] Blood Capillary blood specimen / Unknown 11/08/2021 7:49 PM EDT 11/08/2021 8:05 PM EDT Ale Cavazos MD LAB POINT OF CARE TE ST DOCKED DEVICE UNSOLICITED RESULTS Final Result Performing Organization Address City/State/[facility] Co de Phone Number [facility] [address] [place] [address] * (ABNORMAL) POCT glucose meter (11/08/2021 4:26 PM EDT) [facility] Signature POCT Glucose 131(H) 74 - 99 mg/dL 11/08/2021 4:30 PM EDT [facility] Comment:Accuracy of a glucos e result obtained from a capillary whole blood specimen relies upon adequate, non-compromised capillary blood flow. If the capillary glucose result is not consistent with the patient's clinical signs and symptoms, glucose testing should be repeated with either an arterial or venous sample on the glucometer or sent to the main labortory for testing. Comment 11/08/2021 4:30 PM EDT [facility] Global Sales Director ID Nora Blair 11/08/2021 4:30 PM EDT [facility] Device ID [id number] 11/08/2021 4:30 PM EDT [facility] Specimen Type POC Capillary 11/08/2021 4:30 PM EDT [facility] Blood Capillary blood specimen / Unknown 11/08/2021 4:26 PM EDT 11/08/2021 4:30 PM EDT us Ale Cavazos MD LAB POINT OF CARE TE ST DOCKED DEVICE UNSOLICITED RESULTS Final Result Performing Organization Address City/[facility] Co de Phone Number [facility] [address] [place] [address] * POCT glucose meter (11/08/2021 1:23 PM EDT) POCT Glucose 85 74 - 99 mg/dL 11/08/2021 1:25 PM EDT [facility] Comment:Accuracy of a glucos e result obtained from a capillary whole blood specimen relies upon adequate, non-compromised capillary blood flow. If the capillary glucose result is not consistent with the patient's clinical signs and symptoms, glucose testing should be repeated with either an arterial or venous sample on the glucometer or sent to the main labortory for testing. Comment 11/08/2021 1:25 PM EDT [facility] Global Sales Director ID Nora Blair 11/08/2021 1:25 PM EDT [facility] Device ID [id number] 11/08/2021 1:25 PM EDT [facility] Specimen Type POC Capillary 11/08/2021 1:25 PM EDT [facility] Blood Capillary blood specimen / Unknown 11/08/2021 1:23 PM EDT 11/08/2021 1:25 PM EDT us Ale Cavazos MD LAB POINT OF CARE TE ST DOCKED DEVICE UNSOLICITED RESULTS Final Result Performing Organization Address City/[facility] Co de Phone Number [facility] [address] [place] [address] * (ABNORMAL) Potassium (11/08/2021 1:05 PM EDT) Potassium, Plasma 5.4(H) 3.7 - 4.8 mmol/L 11/08/2021 1:53 PM EDT [facility] Comment:Reference range for Serum potassium is 0.2 to 0.5 mmol/L higher than Plasma range. Blood Venous blood specimen / Unknown Venipuncture / Unknown 11/08/2021 1:05 PM EDT 11/08/2021 1:15 PM EDT us Ale Cavazos MD LAB BLOOD ORDERABLES Final R esult Performing Organization Address City/[facility] Co de Phone Number [facility] [address] [place] [address] * (ABNORMAL) POCT glucose meter (11/08/2021 8:08 AM EDT) POCT Glucose 100(H) 74 - 99 mg/dL 11/08/2021 8:10 AM EDT [facility] Comment:Accuracy of a glucos e result obtained from a capillary whole blood specimen relies upon adequate, non-compromised capillary blood flow. If the capillary glucose result is not consistent with the patient's clinical signs and symptoms, glucose testing should be repeated with either an arterial or venous sample on the glucometer or sent to the main labortory for testing. Comment 11/08/2021 8:10 AM EDT [facility] Global Sales Director ID Nora Blair 11/08/2021 8:10 AM EDT [facility] Device ID [id number] 11/08/2021 8:10 AM EDT [facility] Specimen Type POC Capillary 11/08/2021 8:10 AM EDT [facility] Blood Capillary blood specimen / Unknown 11/08/2021 8:08 AM EDT 11/08/2021 8:10 AM EDT us Ale Cavazos MD LAB POINT OF CARE TE ST DOCKED DEVICE UNSOLICITED RESULTS Final Result Performing Organization Address [facility] Co de Phone Number [facility] [address] [place] [address] * Urinalysis Microscopic Examination (11/08/2021 7:17 AM EDT) Urine Urine specimen obtained by clean catch procedure / Unknown Non-blood Collection / Unknown 11/08/2021 7:17 AM EDT 11/08/2021 7:21 AM EDT us Roberta Fleming MD LAB URINE ORDERABLES Yoselin l Result Performing Organization Address City/[facility]/ZIP Co de Phone Number [facility] [address] [place] [address] * (ABNORMAL) Urine Culture - clean catch (11/08/2021 7:17 AM EDT) Culture <10,000 CFU/mL Alpha hemolytic streptococcus vs gram positive olivia 11/10/2021 7:53 AM EDT [facility] Culture <10,000 CFU/mL Staphylococcus species(A) 11/10/2021 7:53 AM EDT [facility] Comment:The organism value f or this result has been updated. These results have been appended to the previously preliminary verified report. Urine Urine specimen obtained by clean catch procedure / Unknown Non-blood Collection / Unknown 11/08/2021 7:17 AM EDT 11/08/2021 7:52 AM EDT us Roberta Fleming MD LAB MICROBIOLOGY - GENERA L ORDERABLES Final Result [facility] [address] [place] [address] * (ABNORMAL) Urinalysis with reflex microscopic - clean catch (11/08/2021 7:17 AM EDT) Color, Urine Yellow LAB URINALYSIS - AUTOMATED METHOD 11/08/2021 7:35 AM EDT [facility] Clarity, Urine Clear LAB URINALYSIS - AUTOMATED METHOD 11/08/2021 7:35 AM EDT [facility] Spec [place], Urine 1.016 <=1.005 to >=1.030 LAB URINALYSIS - AUTOMATED METHOD 11/08/2021 7:35 AM EDT [facility] pH, Urine >=8.5(H) 4.5 to 8 LAB URINALYSIS - AUTOMATED METHOD 11/08/2021 7:35 AM EDT [facility] Protein, Urine >=300(A) Negative mg/dL LAB URINALYSIS - AUTOMATED METHOD 11/08/2021 7:35 AM EDT [facility] Glucose, Urine 250(A) Negative mg/dL LAB URINALYSIS - AUTOMATED METHOD 11/08/2021 7:35 AM EDT [facility] Ketones, Urine Negative Negative mg/dL LAB URINALYSIS - AUTOMATED METHOD 11/08/2021 7:35 AM EDT [facility] Blood, Urine Negative Negative LAB URINALYSIS - AUTOMATED METHOD 11/08/2021 7:35 AM EDT [facility] Bilirubin, Urine Negative Negative LAB URINALYSIS - AUTOMATED METHOD 11/08/2021 7:35 AM EDT [facility] Urobilinogen, Urine 0.2 0.2 to 1.0 mg/dL LAB URINALYSIS - AUTOMATED METHOD 11/08/2021 7:35 AM EDT [facility] Leukocytes, Urine Negative Negative LAB URINALYSIS - AUTOMATED METHOD 11/08/2021 7:35 AM EDT [facility] Nitrite, Urine Negative Negative LAB URINALYSIS - AUTOMATED METHOD 11/08/2021 7:35 AM EDT [facility] RBC, Urine 1 0 to 3 /HPF LAB URINALYSIS - AUTOMATED METHOD 11/08/2021 7:35 AM EDT [facility] Comment:This result was prev iously suppressed from the chart. WBC, Urine 0 - 5 0 to 5 /HPF LAB URINALYSIS - AUTOMATED METHOD 11/08/2021 7:35 AM EDT [facility] Comment:This result was prev iously suppressed from the chart. Squamous Epithelial Cells 0 - 5 0 to 5 /HPF LAB URINALYSIS - AUTOMATED METHOD 11/08/2021 7:35 AM EDT [facility] Comment:This result was prev iously suppressed from the chart. Hyaline Casts 0 - 8 0 to 8 /LPF LAB URINALYSIS - AUTOMATED METHOD 11/08/2021 7:35 AM EDT [facility] Comment:This result was prev iously suppressed from the chart. Bacteria, Urine Negative Negative LAB URINALYSIS - AUTOMATED METHOD 11/08/2021 7:35 AM EDT [facility] Comment:This result was prev iously suppressed from the chart. Urine Urine specimen obtained by clean catch procedure / Unknown Non-blood Collection / Unknown 11/08/2021 7:17 AM EDT 11/08/2021 7:21 AM EDT Roberta Fleming MD LAB URINE ORDERABLES Yoselin robles Result [facility] [address] [place] [address] * (ABNORMAL) Potassium, Plasma (11/08/2021 6:56 AM EDT) Potassium, Plasma 6.9(HH) 3.7 - 4.8 mmol/L 11/08/2021 8:34 AM EDT [facility] Blood Venous blood specimen / Unknown Venipuncture / Unknown 11/08/2021 6:56 AM EDT 11/08/2021 7:15 AM EDT Roberta Fleming MD LAB BLOOD ORDERABLES Yoselin l Result Performing Organization Address City/[facility]/ZIP Co de Phone Number [facility] [address] [place] [address] * Blood Culture (Aerobic/Anaerobet Set) (11/08/2021 6:56 AM EDT) Culture No growth at day 5 GREGORY 11/13/2021 8:01 AM EDT [facility] Blood Structure of right hand / Unknown Venipuncture / Unknown 11/08/2021 6:56 AM EDT 11/08/2021 7:52 AM EDT Roberta Fleming MD LAB MICROBIOLOGY - GENERA L ORDERABLES Final Result Performing Organization Address City/[facility] Co de Phone Number [facility] [address] [place] [address] * (ABNORMAL) Troponin T, High Sensitivity, 2 Hour, Plasma (11/08/2021 6:16 AM EDT) Troponin T, High Sensitivity, 2 Hour 220(H) <19 ng/L 11/08/2021 7:10 AM EDT [facility] Troponin Delta 8 <10 ng/L 11/08/2021 7:10 AM EDT [facility] Blood Venous blood specimen / Unknown Venipuncture / Unknown 11/08/2021 6:16 AM EDT 11/08/2021 6:38 AM EDT Narrative [facility] - 11/08/2021 7:10 AM EDT Delta <10: Not Significant. No acute change in troponin observed between the baseline and 2 hour samples. Delta >10: Significant change in Troponin observed (from baseline). Troponin values greater than the 99th%ile with a rising or falling pattern (a change of >= 10 ng/L between the baseline and 2 hour samples) highly suggests acute cardiac injury. Acute cardiac injury does not equate to acute myocardial infarction. Additional clinical criteria are necessary for the diagnosis of acute myocardial infarction. us Bailey Leonardo MD LAB BLOOD ORDERABLES Final Result [facility] [address] [place] [address] * US Abdomen Doppler Complete (11/08/2021 6:00 AM EDT) Anatomical Region Laterality Modality Abdomen Ultrasound Impressions 11/08/2021 8:14 AM EDT 1. Mildly coarsened echotexture of the liver transplant may represent parenchymal disease. 2. Patent hepatic vasculature with appropriate flow directionality. 3. No ascites. 4. Small right kidney with parenchymal thinning consistent with chronic kidney disease. CRITICAL RESULT: No. COMMUNICATION: Per this written report. 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 A separate order was placed for a detailed evaluation of the transplant vasculature and additional color and spectral Doppler images of the hepatic vasculature were also obtained. COMPARISON: CT March 02, 2021 and ultrasound September 08, 2017 FINDINGS: Grayscale: Liver: Transplant liver is normal in echogenicity with mildly coarsened echotexture. No suspicious focal liver lesions are detected. Gallbladder: Absent consistent with prior hepatic transplantation. Common Duct: 6 mm Pancreas: The pancreas is obscured by bowel gas. Right kidney: The right kidney is small in size with parenchymal thinning. Length 8.6 cm. Free Fluid: There is no ascites. Duplex: Aorta: The hong scale appearance of the upper abdominal aorta is unremarkable. IVC: The hong scale appearance of the abdominal inferior vena cava is unremarkable. There is normal direction of blood flow with a normal venous variation on the spectral tracing. Portal Vein: There is antegrade flow within the main portal vein with a velocity of 28.1 cm/sec. Hepatic Arteries: Major transplant hepatic artery at the manju-hepatis: Patent with appropriate flow directionality. Brisk systolic upstrokes. Resistive index of 0.76 Right intrahepatic artery: Patent with appropriate flow directionality. Brisk systolic upstrokes. Resistive index of ??0.77 Left intrahepatic artery: Patent with appropriate flow directionality. Brisk systolic upstrokes. Resistive index of 0.73 Hepatic Veins: The hepatic veins are patent at the IVC confluence with normal direction of flow. Procedure Note Parisa Weaver MD - 11/08/2021 Exam/Procedure: US ABDOMEN RUQ ordered by ROBERTA FLEMING, [id number] CLINICAL INDICATION: Liver transplant with new asterixis TECHNIQUE: Multiplanar static and cine hong scale ultrasound images of the rightabdomen were obtained, accompanied by selective color Doppler ultrasoundimages. A separate order was placed for a detailed evaluation of thetransplant vasculature and additional color and spectral Doppler images ofthe hepatic vasculature were also obtained. COMPARISON: CT March 02, 2021 and ultrasound September 08, 2017 FINDINGS: Grayscale: Liver: Transplant liver is normal in echogenicity with mildly coarsenedechotexture. No suspicious focal liver lesions are detected. Gallbladder: Absent consistent with prior hepatic transplantation. Common Duct: 6 mm Pancreas: The pancreas is obscured by bowel gas. Right kidney: The right kidney is small in size with parenchymal thinning.Length 8.6 cm. Free Fluid: There is no ascites. Duplex: Aorta: The hong scale appearance of the upper abdominal aorta isunremarkable. IVC: The hong scale appearance of the abdominal inferior vena cava isunremarkable. There is normal direction of blood flow with a normal venousvariation on the spectral tracing. Portal Vein: There is antegrade flow within the main portal vein with avelocity of 28.1 cm/sec. Hepatic Arteries: Major transplant hepatic artery at the manju-hepatis: Patent withappropriate flow directionality. Brisk systolic upstrokes. Resistive indexof 0.76 Right intrahepatic artery: Patent with appropriate flow directionality.Brisk systolic upstrokes. Resistive index of 0.77 Left intrahepatic artery: Patent with appropriate flow directionality.Brisk systolic upstrokes. Resistive index of 0.73 Hepatic Veins: The hepatic veins are patent at the IVC confluence withnormal direction of flow. IMPRESSION: 1. Mildly coarsened echotexture of the liver transplant may representparenchymal disease. 2. Patent hepatic vasculature with appropriate flow directionality. 3. No ascites. 4. Small right kidney with parenchymal thinning consistent with chronickidney disease. CRITICAL RESULT: No. COMMUNICATION: Per this written report. Dictated by Parisa Weaver on 11/08/2021 8:05 AM Signed by Parisa Weaver on 11/08/2021 8:14 AM us Roberta Fleming MD IMG US PROCEDURES Final R esult * US Abdomen RUQ (11/08/2021 6:00 AM EDT) Anatomical Region Laterality Modality Gallbladder Ultrasound Impressions 11/08/2021 8:14 AM EDT 1. Mildly coarsened echotexture of the liver transplant may represent parenchymal disease. 2. Patent hepatic vasculature with appropriate flow directionality. 3. No ascites. 4. Small right kidney with parenchymal thinning consistent with chronic kidney disease. CRITICAL RESULT: No. COMMUNICATION: Per this written report. Dictated by Parisa Weaver on 11/08/2021 8:05 AM Signed by Parisa Weaver on 11/08/2021 8:14 AM Narrative 11/08/2021 8:14 AM EDT Exam/Procedure: US ABDOMEN RUQ ordered by ROBERTA FLEMING, [id number] CLINICAL INDICATION: Liver transplant with new asterixis TECHNIQUE: Multiplanar static and cine hong scale ultrasound images of the right abdomen were obtained, accompanied by selective color Doppler ultrasound images. A separate order was placed for a detailed evaluation of the transplant vasculature and additional color and spectral Doppler images of the hepatic vasculature were also obtained. COMPARISON: CT March 02, 2021 and ultrasound September 08, 2017 FINDINGS: Grayscale: Liver: Transplant liver is normal in echogenicity with mildly coarsened echotexture. No suspicious focal liver lesions are detected. Gallbladder: Absent consistent with prior hepatic transplantation. Common Duct: 6 mm Pancreas: The pancreas is obscured by bowel gas. Right kidney: The right kidney is small in size with parenchymal thinning. Length 8.6 cm. Free Fluid: There is no ascites. Duplex: Aorta: The hong scale appearance of the upper abdominal aorta is unremarkable. IVC: The hong scale appearance of the abdominal inferior vena cava is unremarkable. There is normal direction of blood flow with a normal venous variation on the spectral tracing. Portal Vein: There is antegrade flow within the main portal vein with a velocity of 28.1 cm/sec. Hepatic Arteries: Major transplant hepatic artery at the manju-hepatis: Patent with appropriate flow directionality. Brisk systolic upstrokes. Resistive index of 0.76 Right intrahepatic artery: Patent with appropriate flow directionality. Brisk systolic upstrokes. Resistive index of ??0.77 Left intrahepatic artery: Patent with appropriate flow directionality. Brisk systolic upstrokes. Resistive index of 0.73 Hepatic Veins: The hepatic veins are patent at the IVC confluence with normal direction of flow. Procedure Note Parisa Weaver MD - 11/08/2021 Exam/Procedure: US ABDOMEN RUQ ordered by ROBERTA FLEMING, [id number] CLINICAL INDICATION: Liver transplant with new asterixis TECHNIQUE: Multiplanar static and cine hong scale ultrasound images of the rightabdomen were obtained, accompanied by selective color Doppler ultrasoundimages. A separate order was placed for a detailed evaluation of thetransplant vasculature and additional color and spectral Doppler images ofthe hepatic vasculature were also obtained. COMPARISON: CT March 02, 2021 and ultrasound September 08, 2017 FINDINGS: Grayscale: Liver: Transplant liver is normal in echogenicity with mildly coarsenedechotexture. No suspicious focal liver lesions are detected. Gallbladder: Absent consistent with prior hepatic transplantation. Common Duct: 6 mm Pancreas: The pancreas is obscured by bowel gas. Right kidney: The right kidney is small in size with parenchymal thinning.Length 8.6 cm. Free Fluid: There is no ascites. Duplex: Aorta: The hong scale appearance of the upper abdominal aorta isunremarkable. IVC: The hong scale appearance of the abdominal inferior vena cava isunremarkable. There is normal direction of blood flow with a normal venousvariation on the spectral tracing. Portal Vein: There is antegrade flow within the main portal vein with avelocity of 28.1 cm/sec. Hepatic Arteries: Major transplant hepatic artery at the manju-hepatis: Patent withappropriate flow directionality. Brisk systolic upstrokes. Resistive indexof 0.76 Right intrahepatic artery: Patent with appropriate flow directionality.Brisk systolic upstrokes. Resistive index of 0.77 Left intrahepatic artery: Patent with appropriate flow directionality.Brisk systolic upstrokes. Resistive index of 0.73 Hepatic Veins: The hepatic veins are patent at the IVC confluence withnormal direction of flow. IMPRESSION: 1. Mildly coarsened echotexture of the liver transplant may representparenchymal disease. 2. Patent hepatic vasculature with appropriate flow directionality. 3. No ascites. 4. Small right kidney with parenchymal thinning consistent with chronickidney disease. CRITICAL RESULT: No. COMMUNICATION: Per this written report. Dictated by Parisa Weaver on 11/08/2021 8:05 AM Signed by Parisa Weaver on 11/08/2021 8:14 AM us Roberta Fleming MD IMG US PROCEDURES Final R esult * (ABNORMAL) POCT glucose meter (11/08/2021 5:43 AM EDT) POCT Glucose 106(H) 74 - 99 mg/dL 11/08/2021 5:45 AM EDT [facility] Comment:Accuracy of a glucos e result obtained from a capillary whole blood specimen relies upon adequate, non-compromised capillary blood flow. If the capillary glucose result is not consistent with the patient's clinical signs and symptoms, glucose testing should be repeated with either an arterial or venous sample on the glucometer or sent to the main labortory for testing. Comment 11/08/2021 5:45 AM EDT [facility] Global Sales Director ID Blake Altman 11/08/2021 5:45 AM EDT [facility] Device ID [id number] 11/08/2021 5:45 AM EDT [facility] Specimen Type POC Capillary 11/08/2021 5:45 AM EDT [facility] Blood Capillary blood specimen / Unknown 11/08/2021 5:43 AM EDT 11/08/2021 5:45 AM EDT us Roberta Fleming MD LAB POINT OF CARE TEST DOCKED DEVICE UNSOLICITED RESULTS Final Result [facility] [address] [place] [address] * (ABNORMAL) Hepatitis B Surface Antibody (11/08/2021 5:39 AM EDT) Hepatitis B Surface Antibody Positive( A) Negative mIU/mL 11/08/2021 4:03 PM EDT [facility] Comment:Antibodies to HBsAg are present at a level greater than or equal to 12 International Units/L. This usually indicates protection against infection. Blood Venous blood specimen / Unknown Venipuncture / Unknown 11/08/2021 5:39 AM EDT 11/08/2021 5:58 AM EDT Roberta Fleming MD LAB BLOOD ORDERABLES Yoselin l Result Performing Organization Address City/[facility] de Phone Number [facility] [address] [place] [address] * Acute Hepatitis Panel (11/08/2021 5:39 AM EDT) Pathologist [facility] Hepatitis B Surf Antigen Negative Negative 11/08/2021 7:05 AM EDT [facility] Hepatitis C Antibody Negative Negative 11/08/2021 7:05 AM EDT [facility] Hepatitis A Antibody IgM Negative Negative 11/08/2021 7:05 AM EDT [facility] Hepatitis B Core Antibody IgM Negative Negative 11/08/2021 7:05 AM EDT [facility] Blood Venous blood specimen / Unknown Venipuncture / Unknown 11/08/2021 5:39 AM EDT 11/08/2021 5:58 AM EDT Roberta Fleming MD LAB BLOOD ORDERABLES Yoselin l Result Performing Organization Address City/[facility]/ZIP Co de Phone Number [facility] [address] [place] [address] * Blood Culture (Aerobic/Anaerobet Set) (11/08/2021 5:39 AM EDT) Pathologist [facility] Culture No growth at day 5 GREGORY 11/13/2021 8:01 AM EDT [facility] Blood Structure of antecubital vein / Unknown Venipuncture / Unknown 11/08/2021 5:39 AM EDT 11/08/2021 7:16 AM EDT Narrative [facility] - 11/13/2021 8:01 AM EDT Low blood volume submitted, results may be compromised us Roberta Fleming MD LAB MICROBIOLOGY - GENERA L ORDERABLES Final Result Performing Organization Address City/[facility]/ZIP Co de Phone Number [facility] [address] [place] [address] * Ammonia, Plasma (11/08/2021 5:39 AM EDT) Ammonia 36 11 - 51 umol/L 11/08/2021 6:22 AM EDT [facility] Blood Venous blood specimen / Unknown Venipuncture / Unknown 11/08/2021 5:39 AM EDT 11/08/2021 5:53 AM EDT us Roberta Fleming MD LAB BLOOD ORDERABLES Yoselin l Result Performing Organization Address City/[facility] Co de Phone Number [facility] [address] [place] [address] * (ABNORMAL) Comprehensive metabolic panel (11/08/2021 5:39 AM EDT) Glucose, Plasma 121(H) 74 - 99 mg/dL 11/08/2021 6:38 AM EDT [facility] BUN, Plasma 80(H) 7 - 21 mg/dL 11/08/2021 6:38 AM EDT [facility] Creatinine, Plasma 10.69(H) 0.80 - 1.30 mg/dL 11/08/2021 6:38 AM EDT [facility] BUN/Creatinine Ratio 7 11/08/2021 6:38 AM EDT [facility] Sodium, Plasma 136 136 - 145 mmol/L 11/08/2021 6:38 AM EDT [facility] Potassium, Plasma 7.8(HH) 3.7 - 4.8 mmol/L 11/08/2021 6:38 AM EDT [facility] Comment:Reference range for Serum potassium is 0.2 to 0.5 mmol/L higher than Plasma range. Chloride, Plasma 97 97 - 107 mmol/L 11/08/2021 6:38 AM EDT [facility] CO2, Plasma 23 22 - 29 mmol/L 11/08/2021 6:38 AM EDT [facility] Anion Gap 16 6 - 16 mmol/L 11/08/2021 6:38 AM EDT [facility] Total Calcium, Plasma 8.7(L) 8.9 - 10.2 mg/dL 11/08/2021 6:38 AM T [facility] Total Protein 6.7 6.3 - 7.9 g/dL 11/08/2021 6:38 AM EDT [facility] Albumin, Plasma 4.5 3.5 - 5.2 g/dL 11/08/2021 6:38 AM T [facility] AST, Plasma 16 12 - 40 U/L 11/08/2021 6:38 AM EDT [facility] Comment:Hemolyzed, result ma y be falsely increased. ALT, Plasma 7(L) 11 - 41 U/L 11/08/2021 6:38 AM [facility] Alkaline Phosphatase, Plasma 117(H) 40 - 115 U/L 11/08/2021 6:38 AM T [facility] Total Bilirubin, Plasma 0.3 0.2 - 1.1 mg/dL 11/08/2021 6:38 AM EDT [facility] eGFR 5(L) >60 mL/min/1.7 3m*2 11/08/2021 6:38 AM [facility] Comment:eGFR = estimated GFR ; eGFR units = mL/min/1.73 sq meters Chronic Kidney Disease is considered if eGFR <60 mL/min/1.73 sq meters Kidney failure is considered if eGFR is <15 mL/min/1.73 sq meters. eGFR assumes steady state plasma creatinine concentration; not applicable if renal function is rapidly changing or patient is on dialysis. eGFR, if AFR/AM 6(L) >60 mL/min/1.7 3m*2 11/08/2021 6:38 [facility] Comment:eGFR = estimated GFR ; eGFR units = mL/min/1.73 sq meters Chronic Kidney Disease is considered if eGFR <60 mL/min/1.73 sq meters Kidney failure is considered if eGFR is <15 mL/min/1.73 sq meters. eGFR assumes steady state plasma creatinine concentration; not applicable if renal function is rapidly changing or patient is on dialysis. Blood Venous blood specimen / Unknown Venipuncture / Unknown 11/08/2021 5:39 AM EDT 11/08/2021 5:58 AM EDT us Roberta Fleming MD LAB BLOOD ORDERABLES Yoselin l Result [facility] [address] [place] [address] * ECG Adult (11/08/2021 5:26 AM EDT) EKG DIAGNOSIS CLASS Abnormal MUSE ECG Ventricular Rate 79 BPM MUSE ECG Atrial Rate 79 BPM MUSE ECG VA Interval 228 ms MUSE ECG QRSD Interval 126 ms MUSE ECG QT Interval 424 ms MUSE ECG QTC Interval 486 ms MUSE ECG P [place] 59 degrees MUSE ECG R [place] 65 degrees MUSE ECG T Wave [place] 39 degrees MUSE ECG Diagnosis Sinus rhythm MUSE ECG Diagnosis with 1st degree AV block MUSE ECG Diagnosis Nonspecific intraventricular block MUSE ECG Diagnosis Abnormal ECG MUSE ECG Diagnosis Confirmed by Ruperto Gross ([id number]) on 11/08/2021 6:40:06 PM MUSE ECG 11/08/2021 5:26 AM EDT 11/08/2021 6:40 PM EDT us Bailey Leonardo MD ECG ORDERABLES Final Result MUSE ECG * XR Chest 1 View (11/08/2021 4:59 AM EDT) Anatomical Region Laterality Modality Chest Digital Radiogra phy Impressions 11/08/2021 6:34 AM EDT No focal consolidation. CRITICAL RESULT: ?? No. COMMUNICATION: Per this written report. Dictated by Darío Briggs on 11/08/2021 6:29 AM Signed by Darío Briggs on 11/08/2021 6:34 AM Narrative 11/08/2021 6:34 AM EDT Exam/Procedure: XR CHEST 1 VIEW ordered by ROBERTA FLEMING, [id number] CLINICAL INDICATION: cough TECHNIQUE: XR CHEST 1 VIEW COMPARISON: June 02, 2021. FINDINGS: Cardiomediastinal silhouette is prominent. Mild pulmonary vascular congestion. No focal consolidation or pneumothorax or pleural effusion. Procedure Note [place], Darío Robles MD - 11/08/2021 Exam/Procedure: XR CHEST 1 VIEW ordered by ROBERTA FLEMING, [id number] CLINICAL INDICATION: cough TECHNIQUE: XR CHEST 1 VIEW COMPARISON: June 02, 2021. FINDINGS: Cardiomediastinal silhouette is prominent. Mild pulmonary vascularcongestion. No focal consolidation or pneumothorax or pleural effusion. IMPRESSION: No focal consolidation. CRITICAL RESULT: No. COMMUNICATION: Per this written report. Dictated by Darío Briggs on 11/08/2021 6:29 AM Signed by Darío Briggs on 11/08/2021 6:34 AM Roberta Fleming MD IMG XR PROCEDURES Final R esult * Gold Top (11/08/2021 4:07 AM EDT) [facility] Extra Hold for add-ons. 11/08/2021 7:02 AM EDT [facility] Comment:Auto resulted. Blood Venous blood specimen / Unknown 11/08/2021 4:07 AM EDT 11/08/2021 4:08 AM EDT Bailey Leonardo MD LAB BLOOD ORDERABLES Final Result [facility] [address] [place] [address] * Influenza A,B & Respiratory Syncytial Virus by PCR (11/08/2021 4:01 AM EDT) [facility] Influenza A Virus PCR Result Not Detected Not Detected 11/09/2021 10:23 AM EDT [facility] Influenza B Virus PCR Result Not Detected Not Detected 11/09/2021 10:23 AM EDT [facility] Respiratory Syncytial Virus (RSV) PCR Result Not Detected Not Detected 11/09/2021 10:23 AM EDT [facility] Swab Nasopharyngeal structure / Unknown Non-blood Collection / Unknown 11/08/2021 4:01 AM EDT 11/08/2021 5:20 AM EDT Roberta Fleming MD LAB MICROBIOLOGY - GENERA L ORDERABLES Final Result Performing Organization Address [facility]/ZIP Co de Phone Number [facility] [address] [place] [address] * SARS CoV-2/COVID-19 by PCR (11/08/2021 4:01 AM EDT) [facility] SARS CoV-2/COVID-1 9 RNA PCR Result Not Detected Not Detected 11/08/2021 8:06 AM EDT [facility] Swab Nasopharyngeal structure / Unknown Non-blood Collection / Unknown 11/08/2021 4:01 AM EDT 11/08/2021 5:20 AM EDT [facility] - 11/08/2021 8:06 AM EDT This assay is for in vitro diagnostic use under FDA emergency use authorization only. Negative results do not preclude infection with the SARS CoV-2 virus and should not be the sole basis of a patient treatment/management or public health decision. Follow up testing should be performed according to the current CDC recommendations. This test was performed using the [employer] Alinity m SARS CoV-2 assay, a PCR-based method. The limit of detection (LoD) for this assay is 100 copies/mL. Use of Alinity m SARS CoV-2 assay in an asymptomatic screening population is intended to be used as part of an infection control plan, that may include additional preventative measures such a predefined serial testing plan or directed testing of high-risk individuals. Negative results should be considered presumptive and do not preclude current or future infection obtained through community transmission or other exposures. Negative results must be considered in the context of an individual's recent exposures, history, presence of clinical signs and symptoms consistent with COVID-19. Bailey Leonardo MD LAB MICROBIOLOGY - GE NERAL ORDERABLES Final Result Performing Organization Address [facility] Co de Phone Number [facility] [address] [place] [address] * (ABNORMAL) Potassium (11/08/2021 3:59 AM EDT) [facility] Potassium, Plasma 7.5(HH) 3.7 - 4.8 mmol/L 11/08/2021 5:08 AM EDT [facility] Comment:Reference range for Serum potassium is 0.2 to 0.5 mmol/L higher than Plasma range. Blood Venous blood specimen / Unknown Venipuncture / Unknown 11/08/2021 3:59 AM EDT 11/08/2021 4:26 AM EDT Bailey Leonardo MD LAB BLOOD ORDERABLES Final Result Performing Organization Address City/[facility]/ZIP Co de Phone Number [facility] [address] [place] [address] * HIV 1 & 2 Antibody/Antigen Screen (11/08/2021 3:59 AM EDT) [facility] HIV 1 & 2 Antibody/Anti gen Screen Nonreactive Nonreactive 11/08/2021 6:12 AM EDT [facility] Blood Venous blood specimen / Unknown Venipuncture / Unknown 11/08/2021 3:59 AM EDT 11/08/2021 4:04 AM EDT Bailey Leonardo MD LAB BLOOD ORDERABLES Final Result Performing Organization Address City/[facility] Co de Phone Number [facility] [address] [place] [address] * [place] Hepatitis C Antibody (11/08/2021 3:59 AM EDT) [facility] Hepatitis C Antibody Negative Negative 11/08/2021 6:12 AM EDT [facility] Blood Venous blood specimen / Unknown Venipuncture / Unknown 11/08/2021 3:59 AM EDT 11/08/2021 4:04 AM EDT Bailey Leonardo MD LAB BLOOD ORDERABLES Final Result Performing Organization Address City/[facility] Co de Phone Number [facility] [address] [place] [address] * (ABNORMAL) Troponin now and 120 min (11/08/2021 3:59 AM EDT) [facility] Troponin T, High Sensitivity, 0 Hour 228(H) <19 ng/L 11/08/2021 5:08 AM EDT [facility] Blood Venous blood specimen / Unknown Venipuncture / Unknown 11/08/2021 3:59 AM EDT 11/08/2021 4:26 AM EDT Bailey Leonardo MD LAB BLOOD ORDERABLES Final Result Performing Organization Address [facility] Co de Phone Number [facility] [address] [place] [address] * ECG Adult (11/08/2021 3:46 AM EDT) EKG DIAGNOSIS CLASS Abnormal MUSE ECG Ventricular Rate 78 BPM MUSE ECG Atrial Rate 78 BPM MUSE ECG VA Interval 228 ms MUSE ECG QRSD Interval 126 ms MUSE ECG QT Interval 422 ms MUSE ECG QTC Interval 481 ms MUSE ECG P [place] 58 degrees MUSE ECG R [place] 62 degrees MUSE ECG T Wave [place] 62 degrees MUSE ECG Diagnosis Sinus rhythm MUSE ECG Diagnosis with sinus arrhythmia MUSE ECG Diagnosis with 1st degree AV block MUSE ECG Diagnosis Nonspecific intraventricular block MUSE ECG Diagnosis Abnormal ECG MUSE ECG Diagnosis Confirmed by Ruperto Gross ([id number]) on 11/08/2021 6:35:48 PM MUSE ECG 11/08/2021 3:46 AM EDT 11/08/2021 6:35 PM EDT Bailey Leonardo MD ECG ORDERABLES Final Result Performing Organization Address [facility] Co de Phone Number M[facility] ECG * (ABNORMAL) Blood gas, venous (11/08/2021 3:17 AM EDT) pH, Venous 7.35 7.32 - 7.43 LAB HEMATOLOGY METHOD 11/08/2021 3:39 AM EDT [facility] pCO2, Venous 55 40 - 55 mmHg LAB HEMATOLOGY METHOD 11/08/2021 3:39 AM EDT [facility] pO2, Venous 50(H) 25 - 40 mmHg LAB HEMATOLOGY METHOD 11/08/2021 3:39 AM EDT [facility] SO2, Measured, Venous 82.3(H) 65 - 80 % LAB HEMATOLOGY METHOD 11/08/2021 3:39 AM EDT [facility] Base Excess, Venous 3.8(H) -2.0 - 3.0 mmol/L LAB HEMATOLOGY METHOD 11/08/2021 3:39 AM EDT [facility] Bicarbonate, Calculated, Venous 30(H) 22 - 26 mmol/L LAB HEMATOLOGY METHOD 11/08/2021 3:39 AM EDT [facility] Hematocrit, Whole Blood 29.0(L) 40.0 - 51.0 % LAB HEMATOLOGY METHOD 11/08/2021 3:39 AM EDT [facility] Sodium, Whole Blood 141 136 - 145 mmol/L LAB HEMATOLOGY METHOD 11/08/2021 3:39 AM EDT [facility] Potassium, Whole Blood 7.0(HH) 3.6 - 4.9 mmol/L LAB HEMATOLOGY METHOD 11/08/2021 3:39 AM EDT [facility] Comment:No visible hemolysis . Chloride, Whole Blood 98 97 - 107 mmol/L LAB HEMATOLOGY METHOD 11/08/2021 3:39 AM EDT [facility] Glucose, Whole Blood 85 74 - 99 mg/dL LAB HEMATOLOGY METHOD 11/08/2021 3:39 AM EDT [facility] Lactate, Venous, Whole Blood 0.8 0.5 - 2.2 mmol/L LAB HEMATOLOGY METHOD 11/08/2021 3:39 AM EDT [facility] Ionized Calcium, Whole Blood 4.4(L) 4.6 - 5.1 mg/dL LAB HEMATOLOGY METHOD 11/08/2021 3:39 AM EDT [facility] Blood Venous blood specimen / Unknown Venipuncture / Unknown 11/08/2021 3:17 AM EDT 11/08/2021 3:24 AM EDT Bailey Leonardo MD LAB BLOOD ORDERABLES Final Result [facility] [address] [place] [address] * POCT glucose meter (11/08/2021 3:14 AM EDT) [facility] POCT Glucose 96 74 - 99 mg/dL 11/08/2021 3:20 AM EDT [facility] Comment:Accuracy of a glucos e result obtained from a capillary whole blood specimen relies upon adequate, non-compromised capillary blood flow. If the capillary glucose result is not consistent with the patient's clinical signs and symptoms, glucose testing should be repeated with either an arterial or venous sample on the glucometer or sent to the main labortory for testing. Comment 11/08/2021 3:20 AM EDT [facility] Global Sales Director ID Markus Oropeza 11/08/2021 3:20 AM EDT [facility] Device ID [id number] 11/08/2021 3:20 AM EDT [facility] Specimen Type POC Capillary 11/08/2021 3:20 AM EDT [facility] Blood Capillary blood specimen / Unknown 11/08/2021 3:14 AM EDT 11/08/2021 3:20 AM EDT us Generic Provider Poct LAB POINT OF CARE TEST DOCKED DEVICE UNSOLICITED RESULTS Final Result Performing Organization Address City/State/[facility] Co mn Phone Number [facility] [address] [place] [address] * CT Angio Neck (11/08/2021 3:11 AM EDT) Anatomical Region Laterality Modality Carotid Artery Computed Tomogra phy Impressions 11/08/2021 3:42 AM EDT No evidence of stenosis, occlusion, or aneurysm within the arteries of the head or neck. CRITICAL RESULT: ?? No. COMMUNICATION: Per this written report.. Approved by Erica Kumar on 11/08/2021 3:21 AM By electronically signing this report, I, the attending physician, attest that I have personally reviewed the images/data for the above examination(s) and agree with the final edited report. Dictated by Erica Kumar on 11/08/2021 3:21 AM Signed by Santy Zheng on 11/08/2021 3:42 AM Narrative 11/08/2021 3:42 AM EDT Exam/Procedure: CT ANGIO HEAD, CT ANGIO NECK ordered by BAILEY LEONARDO, [id number] CLINICAL INDICATION: Stroke alert. TECHNIQUE: Contrast-enhanced CT angiogram of the head and neck was obtained after administration of intravenous iodinated contrast using 0.6 mm axial slice thickness with multiplanar reformations and maximum intensity projections. In addition, 3D images were created and reviewed. AI Utilization: This study was analyzed with deep machine learning artificial intelligence for large vessel occlusion detection. Total DLP (Dose-Length Product): 2005 mGy*cm. Please note: The reported value represents the total of one or more individual components during the CT acquisition on this date and at this time, and as such, the same value may appear in more than one CT report depending on the interpreting/reporting physicians. COMPARISON: CTA head/neck 08/05/2017. FINDINGS: CTA Head: origin of the right CHIEF GUARD. There is no evidence of vascular injury, specifically no arterial stenosis, occlusion, dissection, or pseudoaneurysm. The intracranial venous structures are also fairly well opacified and appear unremarkable. CTA Neck: There is normal vascular anatomy. There is no evidence of vascular injury, specifically no arterial stenosis, occlusion, dissection, or pseudoaneurysm. There is 0% stenosis of the ICA origins by NASCET criteria. Procedure Note Santy Zheng MD - 11/08/2021 Exam/Procedure: CT ANGIO HEAD, CT ANGIO NECK ordered by BAILEY MASON, [id number] CLINICAL INDICATION: Stroke alert. TECHNIQUE: Contrast-enhanced CT angiogram of the head and neck was obtained afteradministration of intravenous iodinated contrast using 0.6 mm axial slicethickness with multiplanar reformations and maximum intensity projections.In addition, 3D images were created and reviewed. AI Utilization: This study was analyzed with deep machine learningartificial intelligence for large vessel occlusion detection. Total DLP (Dose-Length Product): 2005 mGy*cm. Please note: The reportedvalue represents the total of one or more individual components during theCT acquisition on this date and at this time, and as such, the same valuemay appear in more than one CT report depending on theinterpreting/reporting physicians. COMPARISON: CTA head/neck 08/05/2017. FINDINGS: CTA Head: origin of the right CHIEF GUARD. There is no evidence of vascular injury,specifically no arterial stenosis, occlusion, dissection, orpseudoaneurysm. The intracranial venous structures are also fairly wellopacified and appear unremarkable. CTA Neck: There is normal vascular anatomy. There is no evidence of vascular injury,specifically no arterial stenosis, occlusion, dissection, orpseudoaneurysm. There is 0% stenosis of the ICA origins by NASCETcriteria. IMPRESSION: No evidence of stenosis, occlusion, or aneurysm within the arteries ofthe head or neck. CRITICAL RESULT: No. COMMUNICATION: Per this written report.. Approved by Erica Kumar on 11/08/2021 3:21 AM By electronically signing this report, I, the attending physician, attestthat I have personally reviewed the images/data for the aboveexamination(s) and agree with the final edited report. Dictated by Erica Kumar on 11/08/2021 3:21 AM Signed by Santy Zheng on 11/08/2021 3:42 AM us Bailey Leonardo MD IMG CT PROCEDURES Fin al Result * CT Angio Head (11/08/2021 3:11 AM EDT) Anatomical Region Laterality Modality [place] Computed Tomogr aphy Impressions 11/08/2021 3:42 AM EDT No evidence of stenosis, occlusion, or aneurysm within the arteries of the head or neck. CRITICAL RESULT: ?? No. COMMUNICATION: Per this written report.. Approved by Erica Kumar on 11/08/2021 3:21 AM By electronically signing this report, I, the attending physician, attest that I have personally reviewed the images/data for the above examination(s) and agree with the final edited report. Dictated by Erica Kumar on 11/08/2021 3:21 AM Signed by Santy Zheng on 11/08/2021 3:42 AM Narrative 11/08/2021 3:42 AM EDT Exam/Procedure: CT ANGIO HEAD, CT ANGIO NECK ordered by BAILEY LEONARDO, [id number] CLINICAL INDICATION: Stroke alert. TECHNIQUE: Contrast-enhanced CT angiogram of the head and neck was obtained after administration of intravenous iodinated contrast using 0.6 mm axial slice thickness with multiplanar reformations and maximum intensity projections. In addition, 3D images were created and reviewed. AI Utilization: This study was analyzed with deep machine learning artificial intelligence for large vessel occlusion detection. Total DLP (Dose-Length Product): 2005 mGy*cm. Please note: The reported value represents the total of one or more individual components during the CT acquisition on this date and at this time, and as such, the same value may appear in more than one CT report depending on the interpreting/reporting physicians. COMPARISON: CTA head/neck 08/05/2017. FINDINGS: CTA Head: origin of the right CHIEF GUARD. There is no evidence of vascular injury, specifically no arterial stenosis, occlusion, dissection, or pseudoaneurysm. The intracranial venous structures are also fairly well opacified and appear unremarkable. CTA Neck: There is normal vascular anatomy. There is no evidence of vascular injury, specifically no arterial stenosis, occlusion, dissection, or pseudoaneurysm. There is 0% stenosis of the ICA origins by NASCET criteria. Procedure Note Santy Zheng MD - 11/08/2021 Exam/Procedure: CT ANGIO HEAD, CT ANGIO NECK ordered by BAILYE MASON, [id number] CLINICAL INDICATION: Stroke alert. TECHNIQUE: Contrast-enhanced CT angiogram of the head and neck was obtained afteradministration of intravenous iodinated contrast using 0.6 mm axial slicethickness with multiplanar reformations and maximum intensity projections.In addition, 3D images were created and reviewed. AI Utilization: This study was analyzed with deep machine learningartificial intelligence for large vessel occlusion detection. Total DLP (Dose-Length Product): 2005 mGy*cm. Please note: The reportedvalue represents the total of one or more individual components during theCT acquisition on this date and at this time, and as such, the same valuemay appear in more than one CT report depending on theinterpreting/reporting physicians. COMPARISON: CTA head/neck 08/05/2017. FINDINGS: CTA Head: origin of the right CHIEF GUARD. There is no evidence of vascular injury,specifically no arterial stenosis, occlusion, dissection, orpseudoaneurysm. The intracranial venous structures are also fairly wellopacified and appear unremarkable. CTA Neck: There is normal vascular anatomy. There is no evidence of vascular injury,specifically no arterial stenosis, occlusion, dissection, orpseudoaneurysm. There is 0% stenosis of the ICA origins by NASCETcriteria. IMPRESSION: No evidence of stenosis, occlusion, or aneurysm within the arteries ofthe head or neck. CRITICAL RESULT: No. COMMUNICATION: Per this written report.. Approved by Erica Kumar on 11/08/2021 3:21 AM By electronically signing this report, I, the attending physician, attestthat I have personally reviewed the images/data for the aboveexamination(s) and agree with the final edited report. Dictated by Erica Kumar on 11/08/2021 3:21 AM Signed by Santy Zheng on 11/08/2021 3:42 AM us Bailey Leonardo MD IMG CT PROCEDURES Fin al Result * CT Head wo IV contrast (11/08/2021 3:11 AM EDT) Anatomical Region Laterality Modality Head Computed Tomogra phy Impressions 11/08/2021 3:28 AM EDT No acute intracranial abnormality. CRITICAL RESULT: ?? No. COMMUNICATION: Per this written report. Approved by Erica Kumar on 11/08/2021 3:17 AM By electronically signing this report, I, the attending physician, attest that I have personally reviewed the images/data for the above examination(s) and agree with the final edited report. Dictated by Erica Kumar on 11/08/2021 3:17 AM Signed by Santy Zheng on 11/08/2021 3:28 AM Narrative 11/08/2021 3:28 AM EDT Exam/Procedure: CT HEAD WO IV CONTRAST ordered by BAILEY LEONARDO, [id number] CLINICAL INDICATION: Stroke alert. TECHNIQUE: Routine contiguous axial CT images of the head were obtained without contrast administration. Total DLP (Dose-Length Product): 2004.78 mGy.cm. Please note: The reported value represents the total of one or more individual components during the CT acquisition on this date and at this time, and as such, the same value may appear in more than one CT report depending on the interpreting/reporting physicians. COMPARISON: CT head 08/05/2017. FINDINGS: No acute intracranial abnormality. No evidence of acute hemorrhage or ischemia. No mass, mass effect, or midline displacement of structures. Normal ventricular size and configuration. Patent basal cisterns. No displaced or depressed calvarial fractures. Mucosal thickening and retention cysts within the bilateral maxillary sinuses. Mastoid air cells are clear. Procedure Note Santy Zheng MD - 11/08/2021 Exam/Procedure: CT HEAD WO IV CONTRAST ordered by BAILEY LEONARDO,[id number] CLINICAL INDICATION: Stroke alert. TECHNIQUE: Routine contiguous axial CT images of the head were obtained withoutcontrast administration. Total DLP (Dose-Length Product): 2004.78 mGy.cm. Please note: The reportedvalue represents the total of one or more individual components during theCT acquisition on this date and at this time, and as such, the same valuemay appear in more than one CT report depending on theinterpreting/reporting physicians. COMPARISON: CT head 08/05/2017. FINDINGS: No acute intracranial abnormality. No evidence of acute hemorrhage orischemia. No mass, mass effect, or midline displacement of structures.Normal ventricular size and configuration. Patent basal cisterns. No displaced or depressed calvarial fractures. Mucosal thickening andretention cysts within the bilateral maxillary sinuses. Mastoid air cellsare clear. IMPRESSION: No acute intracranial abnormality. CRITICAL RESULT: No. COMMUNICATION: Per this written report. Approved by Erica Kumar on 11/08/2021 3:17 AM By electronically signing this report, I, the attending physician, attestthat I have personally reviewed the images/data for the aboveexamination(s) and agree with the final edited report. Dictated by Erica Kumar on 11/08/2021 3:17 AM Signed by Santy Zheng on 11/08/2021 3:28 AM us Bailey Leonardo MD IM CT PROCEDURES Fin al Result * (ABNORMAL) Comprehensive Metabolic Panel (11/08/2021 3:10 AM EDT) Glucose, Plasma 70(L) 74 - 99 mg/dL 11/08/2021 3:50 AM EDT [facility] BUN, Plasma 79(H) 7 - 21 mg/dL 11/08/2021 3:50 AM EDT [facility] Creatinine, Plasma 10.32(H) 0.80 - 1.30 mg/dL 11/08/2021 3:50 AM EDT [facility] BUN/Creatinine Ratio 8 11/08/2021 3:50 AM EDT [facility] Sodium, Plasma 141 136 - 145 mmol/L 11/08/2021 3:50 AM EDT [facility] Potassium, Plasma 7.7(HH) 3.7 - 4.8 mmol/L 11/08/2021 3:50 AM EDT [facility] Comment: Hemolyzed, result may be falsely increased. Reference range for Serum potassium is 0.2 to 0.5 mmol/L higher than Plasma range. Chloride, Plasma 100 97 - 107 mmol/L 11/08/2021 3:50 AM EDT [facility] CO2, Plasma 24 22 - 29 mmol/L 11/08/2021 3:50 AM EDT [facility] Anion Gap 17(H) 6 - 16 mmol/L 11/08/2021 3:50 AM EDT [facility] Total Calcium, Plasma 8.9 8.9 - 10.2 mg/dL 11/08/2021 3:50 AM EDT [facility] Total Protein 7.6 6.3 - 7.9 g/dL 11/08/2021 3:50 AM EDT [facility] Albumin, Plasma 4.7 3.5 - 5.2 g/dL 11/08/2021 3:50 AM EDT [facility] AST, Plasma 16 12 - 40 U/L 11/08/2021 3:50 AM EDT [facility] Comment:Hemolyzed, result ma y be falsely increased. ALT, Plasma 9(L) 11 - 41 U/L 11/08/2021 3:50 AM EDT [facility] Comment:Hemolyzed, result ma y be falsely increased or decreased. Alkaline Phosphatase, Plasma 124(H) 40 - 115 U/L 11/08/2021 3:50 AM EDT [facility] Total Bilirubin, Plasma 0.3 0.2 - 1.1 mg/dL 11/08/2021 3:50 AM EDT [facility] eGFR 5(L) >60 mL/min/1.7 3m*2 11/08/2021 3:50 AM EDT [facility] Comment:eGFR = estimated GFR ; eGFR units = mL/min/1.73 sq meters Chronic Kidney Disease is considered if eGFR <60 mL/min/1.73 sq meters Kidney failure is considered if eGFR is <15 mL/min/1.73 sq meters. eGFR assumes steady state plasma creatinine concentration; not applicable if renal function is rapidly changing or patient is on dialysis. eGFR, if AFR/AM 7(L) >60 mL/min/1.7 3m*2 11/08/2021 3:50 AM EDT [facility] Comment:eGFR = estimated GFR ; eGFR units = mL/min/1.73 sq meters Chronic Kidney Disease is considered if eGFR <60 mL/min/1.73 sq meters Kidney failure is considered if eGFR is <15 mL/min/1.73 sq meters. eGFR assumes steady state plasma creatinine concentration; not applicable if renal function is rapidly changing or patient is on dialysis. Blood Venous blood specimen / Unknown Venipuncture / Unknown 11/08/2021 3:10 AM EDT 11/08/2021 3:17 AM EDT Bailey Leonardo MD LAB BLOOD ORDERABLES Final Result Performing Organization Address City/[facility] Co de Phone Number [facility] [address] [place] [address] * APTT (PTT) (11/08/2021 3:10 AM EDT) aPTT 29 25 - 35 sec LAB COAGULATION METHOD 11/08/2021 3:30 AM EDT [facility] Blood Venous blood specimen / Unknown Venipuncture / Unknown 11/08/2021 3:10 AM EDT 11/08/2021 3:15 AM EDT Bailey Leonardo MD LAB BLOOD ORDERABLES Final Result [facility] [address] [place] [address] * Anti Xa Level by Low Molecular Weight Heparin Protocol (11/08/2021 3:10 AM EDT) Anti Xa Level Low Molecular Weight Heparin <0.11 IU/mL LAB COAGULATION METHOD 11/08/2021 3:31 AM EDT [facility] Blood Venous blood specimen / Unknown Venipuncture / Unknown 11/08/2021 3:10 AM EDT 11/08/2021 3:15 AM EDT Narrative [facility] - 11/08/2021 3:31 AM EDT Therapeutic Range: LMWH enoxaparin 1mg/kg/dose, 12hrs - peak (3-5 hours after dose): 0.5 - 1.0 IU/mL LMWH enoxaparin 1.5mg/kg/dose, 24hrs - peak (3-5 hours after dose): 1.0 - 2.0 IU/mL LMWH enoxaparin prophylaxis: Not established Bailey Leonardo MD LAB BLOOD ORDERABLES Final Result [facility] [address] [place] [address] * Prothrombin Time (11/08/2021 3:10 AM EDT) Prothrombin Time 13.8 12.0 - 14.3 sec LAB COAGULATION METHOD 11/08/2021 3:30 AM EDT [facility] INR 1.0 0.9 - 1.1 LAB COAGULATION METHOD 11/08/2021 3:30 AM EDT [facility] Blood Venous blood specimen / Unknown Venipuncture / Unknown 11/08/2021 3:10 AM EDT 11/08/2021 3:15 AM EDT Narrative [facility] - 11/08/2021 3:30 AM EDT OPTIMAL INR RANGES FOR PATIENT ON ORAL ANTICOAGULANT THERAPY Prevention of venous thromboembolism ?INR 2.0 to 3.0 In patients with heart disease: Atrial fibrillation ?INR 2.0 to 3.0 Valvular heart disease ? INR 2.0 to 3.0 Tissue heart valves ?INR 2.0 to 3.0 Mechanical prosthetic valves ? INR 2.5 to 3.5 Prevention of recurrent OK ? INR 2.5 to 3.5 Bailey Leonardo MD LAB BLOOD ORDERABLES Final Result [facility] [address] [place] [address] * (ABNORMAL) CBC with Diff (11/08/2021 3:10 AM EDT) [facility] Signature WBC Count 10.10 3.70 - 10.30 10*3/uL LAB HEMATOLOGY METHOD 11/08/2021 3:23 AM EDT [facility] RBC Count 3.00(L) 4.60 - 6.10 10*6/uL LAB HEMATOLOGY METHOD 11/08/2021 3:23 AM EDT [facility] HGB 10.1(L) 13.7 - 17.5 g/dL LAB HEMATOLOGY METHOD 11/08/2021 3:23 AM EDT [facility] HCT 32.1(L) 40.0 - 51.0 % LAB HEMATOLOGY METHOD 11/08/2021 3:23 AM EDT [facility] Platelet Count 321 155 - 369 10*3/uL LAB HEMATOLOGY METHOD 11/08/2021 3:23 AM EDT [facility] MCV 107(H) 79 - 98 fL LAB HEMATOLOGY METHOD 11/08/2021 3:23 AM EDT [facility] MCH 33.7(H) 26.0 - 32.0 pg LAB HEMATOLOGY METHOD 11/08/2021 3:23 AM EDT [facility] MCHC 31.5 30.7 - 35.5 g/dL LAB HEMATOLOGY METHOD 11/08/2021 3:23 AM EDT [facility] RDW 13.8 11.5 - 14.5 % LAB HEMATOLOGY METHOD 11/08/2021 3:23 AM EDT [facility] MPV 9.8 8.8 - 12.5 fL LAB HEMATOLOGY METHOD 11/08/2021 3:23 AM EDT [facility] nRBC 0.0 <=0.0 per 100 WBCs LAB HEMATOLOGY METHOD 11/08/2021 3:23 AM EDT [facility] Differential Type Automated LAB HEMATOLOGY METHOD 11/08/2021 3:23 AM EDT [facility] Neutrophils % 47.0 % LAB HEMATOLOGY METHOD 11/08/2021 3:23 AM EDT [facility] Lymphocytes % 40.0 % LAB HEMATOLOGY METHOD 11/08/2021 3:23 AM EDT [facility] Monocytes % 9.0 % LAB HEMATOLOGY METHOD 11/08/2021 3:23 AM EDT [facility] Eosinophils % 1.0 % LAB HEMATOLOGY METHOD 11/08/2021 3:23 AM EDT [facility] Basophils % 0.0 % LAB HEMATOLOGY METHOD 11/08/2021 3:23 AM EDT [facility] Immature Granulocytes % 3.0 % LAB HEMATOLOGY METHOD 11/08/2021 3:23 AM EDT [facility] Neutrophils Absolute 4.73 1.60 - 6.10 10*3/uL LAB HEMATOLOGY METHOD 11/08/2021 3:23 AM EDT [facility] Lymphocytes Absolute 4.01(H) 1.20 - 3.90 10*3/uL LAB HEMATOLOGY METHOD 11/08/2021 3:23 AM EDT [facility] Monocytes Absolute 0.87 0.30 - 0.90 10*3/uL LAB HEMATOLOGY METHOD 11/08/2021 3:23 AM EDT [facility] Eosinophils Absolute 0.12 0.00 - 0.50 10*3/uL LAB HEMATOLOGY METHOD 11/08/2021 3:23 AM EDT [facility] Basophils Absolute 0.04 0.00 - 0.10 10*3/uL LAB HEMATOLOGY METHOD 11/08/2021 3:23 AM EDT [facility] Immature Granulocytes Absolute 0.33(H) 0.00 - 0.06 10*3/uL LAB HEMATOLOGY METHOD 11/08/2021 3:23 AM EDT [facility] Blood Venous blood specimen / Unknown Venipuncture / Unknown 11/08/2021 3:10 AM EDT 11/08/2021 3:15 AM EDT Narrative [facility] - 11/08/2021 3:23 AM EDT Therapeutic decision making should be based on absolute values, rather than percentages. us Bailey Leonardo MD LAB BLOOD ORDERABLES Final Result [facility] [address] [place] [address] * (ABNORMAL) POCT glucose meter (11/08/2021 2:59 AM EDT) POCT Glucose 69(L) 74 - 99 mg/dL 11/08/2021 3:05 AM EDT [facility] Comment:Accuracy of a glucos e result obtained from a capillary whole blood specimen relies upon adequate, non-compromised capillary blood flow. If the capillary glucose result is not consistent with the patient's clinical signs and symptoms, glucose testing should be repeated with either an arterial or venous sample on the glucometer or sent to the main labortory for testing. Comment 11/08/2021 3:05 AM EDT [facility] Global Sales Director ID Brigitte Thurman 3:05 AM EDT [facility] Device ID [id number] 11/08/2021 3:05 AM EDT [facility] Specimen Type POC Capillary 11/08/2021 3:05 AM EDT [facility] Blood Capillary blood specimen / Unknown 11/08/2021 2:59 AM EDT 11/08/2021 3:05 AM EDT us Generic Provider Poct LAB POINT OF CARE TEST DOCKED DEVICE UNSOLICITED RESULTS Final Result [facility] [address] [place] [address] documented in this encounter Visit Diagnoses Diagnosis Hyperkalemia- Primary Hyperpotassemia Asterixis Lack of coordination Morbid obesity with body mass index (BMI) of 40.0 or higher (CMS/HCC) documented in this encounter Admitting Diagnoses Diagnosis Hyperkalemia Hyperpotassemia documented in this encounter Administered Medications Inactive Administered Medications - up to 3 most recent administrations Medication Order MAR Action Action Date Dose Rate Site acetaminophen (Tylenol) tablet 650 mg 650 mg, Oral, Every 8 hours PRN, Starting on Mon11/08/21 at 0448, Until Mon11/09/21 at 2205, Routine, mild pain albuterol (2.5 MG/3ML) 0.083% nebulizer solution 10 mg 10 mg, Nebulization, Once, 1 dose, On Mon11/08/21 at 0345, Routine Given 11/08/2021 4:22 AM EDT 10 mg ALPRAZolam (Xanax) tablet 0.5 mg 0.5 mg, Oral, Once, 1 dose, On Mon11/08/21 at 2120, Routine Given 11/08/2021 9:45 PM EDT 0.5 mg amoxicillin-clavulanate (Augmentin) 500-125 MG per tablet 500 mg 500 mg (1 tablet), Oral, Daily before dinner, 4 doses, First dose on Mon11/09/21 at 1730, Last dose on Mon11/12/21 at 1730, Routine Given 11/09/2021 5:30 PM EDT 500 mg aspirin chewable tablet 81 mg 81 mg, Oral, Daily, First dose on Mon11/08/21 at 0900, Until Discontinued, Routine Given 11/09/2021 8:14 AM EDT 81 mg Given 11/08/2021 1:24 PM EDT 81 mg calcium gluconate 10 % injection - Pyxis Override Pull 1 dose, Starting on Mon11/08/21 at 0547, Until Mon11/08/21 at 0610 calcium gluconate 10 % injection 2 g 2 g, Intravenous, Once, 1 dose, On Mon11/08/21 at 0455, STATIndications:Hyperkalemia Given 11/08/2021 6:07 AM ED T 2 g cloNIDine (Catapres) tablet 0.1 mg 0.1 mg, Oral, 2 times daily, First dose on Mon11/08/21 at 0900, Until Discontinued, Routine Given 11/09/2021 8:14 AM EDT 0.1 mg Given 11/08/2021 9:45 PM EDT 0.1 mg Given 11/08/2021 1:24 PM EDT 0.1 mg cycloSPORINE modified (Gengraf) capsule 100 mg 100 mg, Oral, 2 times daily (0600 & 1800), First dose on Mon11/08/21 at 0600, Until Discontinued, Routine Given 11/09/2021 5:30 PM EDT 100 mg Given 11/09/2021 6:18 AM EDT 100 mg Given 11/08/2021 5:26 PM EDT 100 mg dextrose 10 % (D10W) bolus 125 mL 125 mL (12.5 g), Intravenous, Every 15 min PRN, Starting on Mon11/08/21 at 0341, Until Mon11/09/21 at 2205, Administer over 15 Minutes, Routine, If patient NPO and POC BG 71 to 89 mg/dL dextrose 10 % (D10W) bolus 125 mL 125 mL (12.5 g), Intravenous, Every 15 min PRN, Starting on Mon11/08/21 at 0341, Until Mon11/09/21 at 2205, Administer over 15 Minutes, Routine, POC BG 51 to 70 mg/dL dextrose 10 % (D10W) bolus 250 mL 250 mL (25 g), Intravenous, Every 15 min PRN, Starting on Mon11/08/21 at 0341, Until Mon11/09/21 at 2205, Administer over 15 Minutes, Routine, POC BG is less than or equal to 50 mg/dL dextrose 10 % (D10W) bolus 250 mL 250 mL (25 g), Intravenous, Once, 1 dose, On Mon11/08/21 at 0345, Administer over 15 Minutes, Routine New Bag 11/08/2021 4:02 AM EDT 250 mL 1000 mL/hr dextrose 10 % (D10W) bolus 250 mL 250 mL (25 g), Intravenous, Once, 1 dose, On Mon11/08/21 at 0525, Administer over 15 Minutes, Routine New Bag 11/08/2021 6:15 AM EDT 250 mL 1000 mL/hr dextrose 10 % continuous infusion - Pyxis Override Pull 1 dose, Starting on Mon11/08/21 at 0341, Until Mon11/08/21 at 0425 dextrose 50 % solution 25 mL 25 mL, Intravenous, As needed, Starting on Mon11/08/21 at 0307, Until Mon11/09/21 at 2205, Routine, low blood sugar doxazosin (Cardura) tablet 8 mg 8 mg, Oral, Nightly, First dose on Mon11/08/21 at 2100, Until Discontinued, Routine Given 11/08/2021 9:45 PM EDT 8 mg glucagon (human recombinant) injection 1 mg 1 mg, Intramuscular, Every 15 min PRN, Starting on Mon11/08/21 at 0341, Until Mon11/09/21 at 2205, Routine, If patient NPO, lacks IV access, May Give IM and POC BG less than or equal to 70 mg/dL guaiFENesin (Mucinex) 12 hr tablet 600 mg 600 mg, Oral, 2 times daily PRN, Starting on Mon11/09/21 at 1129, Until Mon11/09/21 at 2205, Routine, cough Given 11/09/2021 11:55 AM EDT 600 mg heparin (porcine) injection 7,500 Units 7,500 Units, Subcutaneous, Every 8 hours, First dose on Mon11/08/21 at 0600, Until Discontinued, Routine Given 11/08/2021 10:10 PM EDT 7,500 Units Left Lower Abdomen Given 11/08/2021 1:24 PM EDT 7,500 Units L eft Lower Abdomen hydrALAZINE (Apresoline) tablet 50 mg 50 mg, Oral, 3 times daily, First dose on Mon11/08/21 at 0900, Until Discontinued, Routine Given 11/09/2021 5:30 PM EDT 50 mg Given 11/09/2021 8:14 AM EDT 50 mg Given 11/08/2021 9:45 PM EDT 50 mg hydrOXYzine pamoate (Vistaril) 25 MG capsule - Pyxis Override Pull 1 dose, Starting on Mon11/08/21 at 0623, Until Mon11/08/21 at 0646 hydrOXYzine pamoate (Vistaril) capsule 25 mg 25 mg, Oral, Once, 1 dose, On Mon11/08/21 at 0625, Routine Given 11/08/2021 6:46 AM EDT 25 mg insulin lispro (HumaLOG) 100 units/mL injection - Correction - Standard Dose 0-5 Units, Subcutaneous, 3 times daily with meals, First dose on Mon11/08/21 at 0830, Until Discontinued, Routine insulin lispro (HumaLOG) injection - Correction - Nighttime Dose 0-3 Units, Subcutaneous, 2 times nightly (2100 & 0300), First dose on Mon11/08/21 at 0450, Until Discontinued, Routine insulin regular (HumuLIN R,NovoLIN R) 100 UNIT/ML injection - Pyxis Override Pull 1 dose, Starting on Mon11/08/21 at 0340, Until Mon11/08/21 at 0426 insulin regular (HumuLIN R,NovoLIN R) 100 UNIT/ML injection 5 Units 5 Units, Intravenous, Once, 1 dose, On Mon11/08/21 at 0345, STATIndications:Hyperkalemia Given 11/08/2021 4:25 AM EDT 5 Units insulin regular (HumuLIN R,NovoLIN R) 100 UNIT/ML injection 5 Units 5 Units, Intravenous, Once, 1 dose, On Mon11/08/21 at 0525, STATIndications:Hyperkalemia Given 11/08/2021 6:28 AM EDT 5 Units iohexol (OMNIPaque) 350 MG/ML injection 100 mL 100 mL, Intravenous, Once in imaging, 1 dose, Starting on Mon11/08/21 at 0301, Until Mon11/08/21 at 0305, Routine, Imaging Protocol Orders Given 11/08/2021 3:05 AM EDT 80 mL ipratropium-albuterol (Duo-Neb) 0.5-2.5 mg/3 mL nebulizer solution 3 mL 3 mL, Nebulization, Every 6 hours RT, First dose (after last modification) on Mon11/09/21 at 0900, Until Discontinued, Routine Given 11/09/2021 9:10 AM EDT 3 mL lactulose (Chronulac) 10 GM/15ML solution 20 g 20 g, Oral, Once, 1 dose, On Mon11/08/21 at 0340, Routine Given 11/08/2021 4:03 AM EDT 20 g melatonin tablet 6 mg 6 mg, Oral, Once, 1 dose, On Mon11/08/21 at 2120, Routine Given 11/08/2021 9:45 PM EDT 6 mg metoprolol succinate XL (Toprol-XL) 24 hr tablet 100 mg 100 mg, Oral, Daily, First dose on Mon11/08/21 at 0900, Until Discontinued, Routine Given 11/09/2021 8:27 AM EDT 100 mg Given 11/08/2021 1:23 PM EDT 100 mg mycophenolate (Cellcept) capsule 250 mg 250 mg, Oral, 2 times daily, First dose on Mon11/08/21 at 0900, Until Discontinued, Routine Given 11/09/2021 8:14 AM EDT 250 mg Given 11/08/2021 9:45 PM EDT 250 mg Given 11/08/2021 1:23 PM EDT 250 mg pantoprazole (Protonix) EC tablet 40 mg 40 mg, Oral, Daily before breakfast, First dose on Mon11/08/21 at 0730, Until Discontinued, Routine Given 11/09/2021 8:14 AM EDT 40 mg Given 11/08/2021 1:23 PM EDT 40 mg predniSONE (Deltasone) tablet 10 mg 10 mg, Oral, Daily, 2 doses, First dose on Mon11/13/21 at 0900, Last dose on Mon11/14/21 at 0900, Routine predniSONE (Deltasone) tablet 20 mg 20 mg, Oral, Daily, 2 doses, First dose on Mon11/11/21 at 0900, Last dose on Mon11/12/21 at 0900, Routine predniSONE (Deltasone) tablet 40 mg 40 mg, Oral, Daily, 2 doses, First dose on Mon11/09/21 at 1320, Last dose on Mon11/10/21 at 0900, Routine Given 11/09/2021 5:57 PM EDT 40 mg sevelamer carbonate (Renvela) tablet 1,600 mg 1,600 mg, Oral, 3 times daily with meals, First dose on Mon11/09/21 at 1240, Until Discontinued, Routine Given 11/09/2021 5:55 PM EDT 1,600 mg sodium chloride 0.9 % flush 10 mL 10 mL, Intravenous, Every 8 hours PRN, Starting on Mon11/08/21 at 0445, Until Mon11/09/21 at 2205, Routine, line care sodium chloride 0.9 % flush 10 mL 10 mL, Intravenous, As needed, Starting on Mon11/08/21 at 0445, Until Mon11/09/21 at 2205, Routine, line care sodium zirconium cyclosilicate (Lokelma) packet 10 g 10 g, Oral, 3 times daily, 6 doses, First dose on Mon11/08/21 at 0900, Last dose on Mon11/09/21 at 2100, Routine Given 11/09/2021 8:28 AM EDT 10 g Given 11/08/2021 9:46 PM EDT 10 g Given 11/08/2021 4:26 PM EDT 10 g sodium zirconium cyclosilicate (Lokelma) packet 10 g 10 g, Oral, Daily, First dose on Mon11/10/21 at 0900, Until Discontinued, Routine documented in this encounter Active and Recently Administered Medications Times are shown in EDT. Scheduled Medication Order 11/07/2021 11/08/2021 11/09/2021 albuterol (2.5 MG/3ML) 0.083% nebulizer solution 10 mg (COMPLETED) 10 mg, Nebulization, Once, 1 dose, On Mon11/08/21 at 0345, Routine 0422 (Given - Provider: Cecelia Roque, TECHNOLOGY RECRUITER) ALPRAZolam (Xanax) tablet 0.5 mg (COMPLETED) 0.5 mg, Oral, Once, 1 dose, On Mon11/08/21 at 2120, Routine 2145 (Given - Provider: Bridgett Ansari) amoxicillin-clavulanate (Augmentin) 500-125 MG per tablet 500 mg(Linked Group 1) 500 mg (1 tablet), Oral, Once, 1 dose, On Mon11/09/21 at 1240, Routine 1240 (Not Given - Provider: Kati Wood RN - Reason: Patient in procedure) amoxicillin-clavulanate (Augmentin) 500-125 MG per tablet 500 mg(Linked Group 1) 500 mg (1 tablet), Oral, Daily before dinner, 4 doses, First dose on Mon11/09/21 at 1730, Last dose on Mon11/12/21 at 1730, Routine 1730 (Given - Provid er: Kati Wood RN) aspirin chewable tablet 81 mg 81 mg, Oral, Daily, First dose on Mon11/08/21 at 0900, Until Discontinued, Routine 1324 (Given - Provider: Kati Wood RN) 0814 (Given - Provider: Kati Wood RN) calcium gluconate 10 % injection 2 g (COMPLETED) 2 g, Intravenous, Once, 1 dose, On Mon11/08/21 at 0455, STAT 0607 (Given - Provider: Blake Altman RN) carBAMazepine (TEGretol) tablet 200 mg 200 mg, Oral, 2 times daily, First dose on Mon11/09/21 at 1240, Until Discontinued, Routine 1240 (Not Given - Provider: Kati Wood RN - Reason: Patient in procedure)2100 (Canceled Entry - Provider: Automatic Discharge Provider - Comment: Automatically canceled at discontinue of medication order) cloNIDine (Catapres) tablet 0.1 mg 0.1 mg, Oral, 2 times daily, First dose on Mon11/08/21 at 0900, Until Discontinued, Routine 1324 (Given - Provider: Kati Wood RN)2145 (Given - Provider: Bridgett Ansari) 0814 (Given - Provider: Kati Wood, JANA)2100 (Canceled Entry - Provider: Automatic Discharge Provider - Comment: Automatically canceled at discontinue of medication order) cycloSPORINE modified (Gengraf) capsule 100 mg 100 mg, Oral, 2 times daily (0600 & 1800), First dose on Mon11/08/21 at 0600, Until Discontinued, Routine 0607 (Given - Provider: Blake Altman RN)1726 (Given - Provider: Kati Wood RN) 0618 (Given - Provider: Bridgett Ansari)1730 (Given - Provider: Kati Wood, JANA) dextrose 10 % (D10W) bolus 250 mL (COMPLETED)(Linked Group 2) 250 mL (25 g), Intravenous, Once, 1 dose, On Mon11/08/21 at 0345, Administer over 15 Minutes, Routine 0402 (New Bag - Provider: Blake Altman RN)0425 (Stopped - Provider: Blake Altman RN) dextrose 10 % (D10W) bolus 250 mL (COMPLETED)(Linked Group 3) 250 mL (25 g), Intravenous, Once, 1 dose, On Mon11/08/21 at 0525, Administer over 15 Minutes, Routine 0615 (New Bag - Provider: Blake Altman RN)0628 (Stopped - Provider: Blake Altman RN) doxazosin (Cardura) tablet 8 mg 8 mg, Oral, Nightly, First dose on Mon11/08/21 at 2100, Until Discontinued, Routine 214 (Given - Provider: Bridgett Ansari) 2100 (Canceled Entry - Provider: Automatic Discharge Provider - Comment: Automatically canceled at discontinue of medication order) entecavir (Baraclude) tablet 0.5 mg 0.5 mg, Oral, Weekly, First dose on Mon11/11/21 at 0900, Until Discontinued, Routine gabapentin (Neurontin) capsule 800 mg 800 mg, Oral, Nightly, First dose on Mon11/09/21 at 2100, Until Discontinued 2099 (Canceled Entry - Provider: Automatic Discharge Provider - Comment: Automatically canceled at discontinue of medication order) heparin (porcine) injection 7,500 Units (CANCELED) 7,500 Units, Subcutaneous, Every 8 hours, First dose on Mon11/08/21 at 0600, Until Discontinued, Routine 0600 (Not Given - Provider: Kati Wood RN - Reason: Other - Comment: not given on previous shift)1324 (Given - Provider: Kati Wood RN)2210 (Given - Provider: Bridgett Ansari) 0600 (Not Given - Provider: Kati Wood RN - Reason: Medication not available) hydrALAZINE (Apresoline) tablet 50 mg 50 mg, Oral, 3 times daily, First dose on Mon11/08/21 at 0900, Until Discontinued, Routine 0900 (Not Given - Provider: Kati Wood RN - Reason: Patient in procedure - Comment: dialysis)1626 (Given - Provider: Kati Wood RN)2145 (Given - Provider: Bridgett Ansari) 0814 (Given - Provider: Kati Wood RN)1730 (Given - Provider: Kati Wood RN)2100 (Canceled Entry - Provider: Automatic Discharge Provider - Comment: Automatically canceled at discontinue of medication order) hydrOXYzine pamoate (Vistaril) capsule 25 mg (COMPLETED) 25 mg, Oral, Once, 1 dose, On Mon11/08/21 at 0625, Routine 0646 (Given - Provider: Blake Altman RN) insulin lispro (HumaLOG) 100 units/mL injection - Correction - Standard Dose 0-5 Units, Subcutaneous, 3 times daily with meals, First dose on Mon11/08/21 at 0830, Until Discontinued, Routine 0822 (Not Given - Provider: Kati Wood RN - Reason: Order parameters not met)1325 (Not Given - Provider: Kati oWod RN - Reason: Order parameters not met)1721 (Not Given - Provider: Kati Wood RN - Reason: Order parameters not met) 0830 (Not Given - Provider: Kati Wood RN - Reason: Order parameters not met)1357 (Not Given - Provider: Kati Wood RN - Reason: Other - Comment: Pt going to dialysis)1755 (Not Given - Provider: Kati Wood RN - Reason: Order parameters not met) insulin lispro (HumaLOG) injection - Correction - Nighttime Dose 0-3 Units, Subcutaneous, 2 times nightly (2100 & 0300), First dose on Mon11/08/21 at 0450, Until Discontinued, Routine 0543 (Not Given - Provider: Blake Altman RN - Reason: Contraindicated)2100 (Not Given - Provider: Bridgett Ansari - Reason: Order parameters not met) 214 (Not Given - Provider: Bridgett Ansari - Reason: Order parameters not met)2100 (Canceled Entry - Provider: Automatic Discharge Provider - Comment: Automatically canceled at discontinue of medication order) insulin regular (HumuLIN R,NovoLIN R) 100 UNIT/ML injection 5 Units (COMPLETED)(Linked Group 2) 5 Units, Intravenous, Once, 1 dose, On Mon11/08/21 at 0345, STAT 0425 (Given - Provider: Blake Altman RN) insulin regular (HumuLIN R,NovoLIN R) 100 UNIT/ML injection 5 Units (COMPLETED)(Linked Group 3) 5 Units, Intravenous, Once, 1 dose, On Mon11/08/21 at 0525, STAT 0628 (Given - Provider: Blake Altman RN) iohexol (OMNIPaque) 350 MG/ML injection 100 mL (COMPLETED) 100 mL, Intravenous, Once in imaging, 1 dose, Starting on Mon11/08/21 at 0301, Until Mon11/08/21 at 0305, Routine, Imaging Protocol Orders 0305 (Given - Provider: Hussein Garcia) ipratropium-albuterol (Duo-Neb) 0.5-2.5 mg/3 mL nebulizer solution 3 mL 3 mL, Nebulization, Every 6 hours RT, First dose (after last modification) on Mon11/09/21 at 0900, Until Discontinued, Routine 0910 (Given - Provid er: Hernan Schwartz, TECHNOLOGY RECRUITER)1606 (Not Given - Provider: Hernan Schwartz, RICARDO - Reason: Patient in procedure)2100 (Canceled Entry - Provider: Automatic Discharge Provider - Comment: Automatically canceled at discontinue of medication order) lactulose (Chronulac) 10 GM/15ML solution 20 g (COMPLETED) 20 g, Oral, Once, 1 dose, On Mon11/08/21 at 0340, Routine 0403 (Given - Provider: Blake Altman RN) melatonin tablet 6 mg (COMPLETED) 6 mg, Oral, Once, 1 dose, On Mon11/08/21 at 2120, Routine 2145 (Given - Provider: Bridgett Ansari) metoprolol succinate XL (Toprol-XL) 24 hr tablet 100 mg 100 mg, Oral, Daily, First dose on Mon11/08/21 at 0900, Until Discontinued, Routine 1323 (Given - Provider: Kati Wood RN) 0827 (Given - Provider: Kati Wood RN) mycophenolate (Cellcept) capsule 250 mg 250 mg, Oral, 2 times daily, First dose on Mon11/08/21 at 0900, Until Discontinued, Routine 1323 (Given - Provider: Kati Wood RN)214 (Given - Provider: Bridgett Ansari) 0814 (Given - Provider: Kati Wood RN)2100 (Canceled Entry - Provider: Automatic Discharge Provider - Comment: Automatically canceled at discontinue of medication order) NIFEdipine XL (Procardia XL) 24 hr tablet 90 mg 90 mg, Oral, 2 times daily, First dose on Mon11/09/21 at 1240, Until Discontinued, Routine 1240 (Not Given - Provider: Kati Wood RN - Reason: Patient in procedure)2100 (Canceled Entry - Provider: Automatic Discharge Provider - Comment: Automatically canceled at discontinue of medication order) pantoprazole (Protonix) EC tablet 40 mg 40 mg, Oral, Daily before breakfast, First dose on Mon11/08/21 at 0730, Until Discontinued, Routine 1323 (Given - Provider: Kati Wood RN) 0814 (Given - Provider: Kati Wood RN) predniSONE (Deltasone) tablet 10 mg(Linked Group 4) 10 mg, Oral, Daily, 2 doses, First dose on 11/13/21 at 0900, Last dose on 11/14/21 at 0900, Routine predniSONE (Deltasone) tablet 20 mg(Linked Group 4) 20 mg, Oral, Daily, 2 doses, First dose on Mon11/11/21 at 0900, Last dose on Mon11/12/21 at 0900, Routine predniSONE (Deltasone) tablet 40 mg(Linked Group 4) 40 mg, Oral, Daily, 2 doses, First dose on Mon11/09/21 at 1320, Last dose on Mon11/10/21 at 0900, Routine 1757 (Given - Provid er: Kati Wood RN) sevelamer carbonate (Renvela) tablet 1,600 mg 1,600 mg, Oral, 3 times daily with meals, First dose on Mon11/09/21 at 1240, Until Discontinued, Routine 1240 (Not Given - Provider: Kati Wood RN - Reason: Patient in procedure)1755 (Given - Provider: Kati Wood RN) sodium zirconium cyclosilicate (Lokelma) packet 10 g(Linked Group 5) 10 g, Oral, 3 times daily, 6 doses, First dose on Mon11/08/21 at 0900, Last dose on Mon11/09/21 at 2100, Routine 0900 (Not Given - Provider: Kati Wood RN - Reason: Patient in procedure - Comment: Dialysis)1626 (Given - Provider: Kati Wood RN)2146 (Given - Provider: Bridgett Ansari) 0828 (Given - Provider: Kati Wood RN)1756 (Not Given - Provider: Kati Wood RN - Reason: Patient/family refused)2100 (Canceled Entry - Provider: Automatic Discharge Provider - Comment: Automatically canceled at discontinue of medication order) sodium zirconium cyclosilicate (Lokelma) packet 10 g(Linked Group 5) 10 g, Oral, Daily, First dose on Mon11/10/21 at 0900, Until Discontinued, Routine PRN Medication Order 11/07/2021 11/08/2021 11/09/2021 acetaminophen (Tylenol) tablet 650 mg 650 mg, Oral, Every 8 hours PRN, Starting on Mon11/08/21 at 0448, Until Mon11/09/21 at 2205, Routine, mild pain dextrose 10 % (D10W) bolus 125 mL 125 mL (12.5 g), Intravenous, Every 15 min PRN, Starting on Mon11/08/21 at 0341, Until Mon11/09/21 at 2205, Administer over 15 Minutes, Routine, If patient NPO and POC BG 71 to 89 mg/dL dextrose 10 % (D10W) bolus 125 mL(Linked Group 6) 125 mL (12.5 g), Intravenous, Every 15 min PRN, Starting on Mon11/08/21 at 0341, Until Mon11/09/21 at 2205, Administer over 15 Minutes, Routine, POC BG 51 to 70 mg/dL dextrose 10 % (D10W) bolus 250 mL 250 mL (25 g), Intravenous, Every 15 min PRN, Starting on Mon11/08/21 at 0341, Until Mon11/09/21 at 2205, Administer over 15 Minutes, Routine, POC BG is less than or equal to 50 mg/dL dextrose 50 % solution 25 mL 25 mL, Intravenous, As needed, Starting on Mon11/08/21 at 0307, Until Mon11/09/21 at 2205, Routine, low blood sugar glucagon (human recombinant) injection 1 mg(Linked Group 6) 1 mg, Intramuscular, Every 15 min PRN, Starting on Mon11/08/21 at 0341, Until Mon11/09/21 at 2205, Routine, If patient NPO, lacks IV access, May Give IM and POC BG less than or equal to 70 mg/dL guaiFENesin (Mucinex) 12 hr tablet 600 mg 600 mg, Oral, 2 times daily PRN, Starting on Mon11/09/21 at 1129, Until Mon11/09/21 at 2205, Routine, cough 1155 (Given - Provid er: Kati Wood RN) sodium chloride 0.9 % flush 10 mL(Linked Group 7) 10 mL, Intravenous, Every 8 hours PRN, Starting on Mon11/08/21 at 0445, Until Mon11/09/21 at 2205, Routine, line care sodium chloride 0.9 % flush 10 mL(Linked Group 7) 10 mL, Intravenous, As needed, Starting on Mon11/08/21 at 0445, Until Mon11/09/21 at 2205, Routine, line care Linked Groups Order Group 1: amoxicillin-clavulanate (Augmentin) 500-125 MG per tablet 500 mgJump to med 500 mg (1 tablet), Oral, Once, 1 dose, On Mon11/09/21 at 1240, Routine Followed by amoxicillin-clavulanate (Augmentin) 500-125 MG per tablet 500 mgJump to med 500 mg (1 tablet), Oral, Daily before dinner, 4 doses, First dose on Mon11/09/21 at 1730, Last dose on Mon11/12/21 at 1730, Routine Group 2: dextrose 10 % (D10W) bolus 250 mL (COMPLETED)Jump to med 250 mL (25 g), Intravenous, Once, 1 dose, On Mon11/08/21 at 0345, Administer over 15 Minutes, Routine Followed by insulin regular (HumuLIN R,NovoLIN R) 100 UNIT/ML injection 5 Units (COMPLETED)Jump to med 5 Units, Intravenous, Once, 1 dose, On Mon11/08/21 at 0345, STAT Group 3: dextrose 10 % (D10W) bolus 250 mL (COMPLETED)Jump to med 250 mL (25 g), Intravenous, Once, 1 dose, On Mon11/08/21 at 0525, Administer over 15 Minutes, Routine Followed by insulin regular (HumuLIN R,NovoLIN R) 100 UNIT/ML injection 5 Units (COMPLETED)Jump to med 5 Units, Intravenous, Once, 1 dose, On Mon11/08/21 at 0525, STAT Group 4: predniSONE (Deltasone) tablet 40 mgJump to med 40 mg, Oral, Daily, 2 doses, First dose on Mon11/09/21 at 1320, Last dose on Mon11/10/21 at 0900, Routine Followed by predniSONE (Deltasone) tablet 20 mgJump to med 20 mg, Oral, Daily, 2 doses, First dose on Mon11/11/21 at 0900, Last dose on Mon11/12/21 at 0900, Routine Followed by predniSONE (Deltasone) tablet 10 mgJump to med 10 mg, Oral, Daily, 2 doses, First dose on Mon11/13/21 at 0900, Last dose on Mon11/14/21 at 0900, Routine Group 5: sodium zirconium cyclosilicate (Lokelma) packet 10 gJump to med 10 g, Oral, 3 times daily, 6 doses, First dose on Mon11/08/21 at 0900, Last dose on Mon11/09/21 at 2100, Routine Followed by sodium zirconium cyclosilicate (Lokelma) packet 10 gJump to med 10 g, Oral, Daily, First dose on Mon11/10/21 at 0900, Until Discontinued, Routine Group 6: dextrose 10 % (D10W) bolus 125 mLJump to med 125 mL (12.5 g), Intravenous, Every 15 min PRN, Starting on Mon11/08/21 at 0341, Until Mon11/09/21 at 2205, Administer over 15 Minutes, Routine, POC BG 51 to 70 mg/dL Or glucagon (human recombinant) injection 1 mgJump to med 1 mg, Intramuscular, Every 15 min PRN, Starting on Mon11/08/21 at 0341, Until Mon11/09/21 at 2205, Routine, If patient NPO, lacks IV access, May Give IM and POC BG less than or equal to 70 mg/dL Group 7: Insert peripheral IV (COMPLETED) Once, On Mon11/08/21 at 0446, For 1 occurrence And Saline lock IV (COMPLETED) Once, On Mon11/08/21 at 0446, For 1 occurrence And sodium chloride 0.9 % flush 10 mLJump to med 10 mL, Intravenous, Every 8 hours PRN, Starting on Mon11/08/21 at 0445, Until Mon11/09/21 at 2205, Routine, line care And sodium chloride 0.9 % flush 10 mLJump to med 10 mL, Intravenous, As needed, Starting on Mon11/08/21 at 0445, Until Mon11/09/21 at 2205, Routine, line care documented in this encounter Additional Health Concerns Infection Onset Date Last Indicated Resolved Time COVID-19 Rule-Out 11/08/2021 11/08/2021 11/08/2021 8:06 AM EDT documented as of this encounter Care Teams Ux Developer Relationship Specialty Start Date End Date Edgar Fournier MD [facility] [place] [address] PCP - General 12/25/20 Enrique Griffith MD [address] [place] [address] Referring Physician Nephrology 01/08/21 documented as of this encounter
--- OUTSIDE RECORDS SUMMARY | 2024-07-12 13:05 | XMS_ITS | Encounter Summary ---
Author Organization [facility] Address [address] [id number] Care Team Providers Care Graphic Art Technician Name Role Phone Edgar Fournier MD Primary Care Provider [phone] Enrique Griffith MD Unavailable [phone] Encounter Details Date Type Department Care Team (Late st Contact Info) Description 10/29/2021 Telephone [facility] [address] [facility] [address] [place] [phone] Zion Virgen RN HOSPITAL KIDNEY [id number] [address] [phone] Social History Tobacco Use Types Packs/Day Years [...] Telephone Encounter - Zion Virgen RN - 10/29/2021 2:40 PM EDT Per patient he had colonoscopy yesterday 10/[facility], (will request records after pathology reports are available.) Per patient he is making progress with weight loss but progress is slow due to hernia, per patient the physican at stated they were not planning on operating on hernia until after transplant, (will need to discuss this in committee prior to active listing.) coordinatorwill continue to check on patient weight loss progress, patient denies further needs at present. documented in this encounter Plan of Treatment Not on file documented as of this encounter Visit Diagnoses Not on filedocumented in this encounter Care Teams Graphic Art Technician Relationship Specialty Start Date End Date Edgar Fournier MD [address] [place] [address] PCP - General 12/25/20 Enrique Griffith MD [address] [place] [address] Referring Physician Nephrology 01/08/21 documented as of this encounter
--- OUTSIDE RECORDS SUMMARY | 2024-07-12 13:05 | XMS_ITS | Encounter Summary ---
Author Organization [facility] Address [address] [place] [address] Care Team Providers Care Learning And Development Specialist Name Role Phone Edgar Fournier MD Primary Care Provider [phone] Enrique Griffith MD Unavailable [phone] Reason for Referral * Imaging (Routine) - Closed Specialty Diagnoses / Procedures Referred By Declan hines Referred To Contact Cardiology Diagnoses End stage renal disease (CMS/HCC) Procedures VAS US Carotid Duplex Bilateral Geovanna Sheppard MD [address] [address] Phone: tel: fax: Referral ID Status Reason Start Date Expiration Date V isits Requested Visits Authorized [id number] Closed Perform Procedure 05/20/2021 11/19/2022 1 1 Encounter Details Date Type Department Care Team (Late st Contact Info) Description 05/20/2021 Orders Only [facility] [address] [address] Zion Virgen, RN HOSPITAL KIDNEY [id number] [address] [place] [address] End stage renal disease (CMS/HCC) (Primary Dx) [...] have Coronavirus / COVID-19? No / Unsure 05/14/2021 7:13 AM EDT documented as of this encounter Plan of Treatment Not on file documented as of this encounter Results * VAS US Carotid Duplex Bilateral (06/10/2021 3:24 PM EDT) Anatomical Region Laterality Modality Head, Neck, Vascular Ultrasound Impressions 06/11/2021 2:52 PM EDT Right: No significant carotid plaque is demonstrated. ??Flow is present in the CCA, ICA, and ECA. ??ICA velocities do not demonstrate evidence of a hemodynamically significant stenosis (less than 50%). Left: No significant carotid plaque is demonstrated. ??Flow is present in the CCA, ICA, and ECA. ??ICA velocities do not demonstrate evidence of a hemodynamically significant stenosis (less than 50%). Vertebral artery flow is antegrade, bilaterally. Subclavian artery flow is multiphasic on the right. The left subclavian artery demonstrates elevated, monophasic flow due to the presence of LUE AVF. COMMUNICATION: Per this written report. Dictated by Bertin Christina on 06/10/2021 3:36 PM By electronically signing this report, I, the attending physician, attest that I have personally reviewed the images/data for the above examination(s) and I agree with the final edited report. Signed by Terry Hernandez on ??06/11/2021 2:52 PM Narrative 06/11/2021 2:52 PM EDT Exam/Procedure: VAS US CAROTID DUPLEX BILATERAL ordered by GEOVANNA SHEPPARD, [id number] CLINICAL INDICATION: Kidney Txp eval TECHNIQUE: Non-invasive, real time duplex exam of the extracranial carotid circulation with Doppler ultrasonic waveform and spectral analysis was performed. COMPARISON: None. FINDINGS: Right: CCA: 108 cm/s ICA: ??95 cm/s ECA: ??94 cm/s Vertebral A: ??51 cm/s Subclavian A: ??118 cm/s Left: CCA: 92 cm/s ICA: ??80 cm/s ECA: ??97 cm/s Vertebral A: ??63 cm/s Subclavian A: ??214 cm/s (LUE AVF present) Procedure Note Terry Hernandez MD - 06/11/2021 Exam/Procedure: VAS US CAROTID DUPLEX BILATERAL ordered by GEOVANNA SHEPPARD,[id number] CLINICAL INDICATION: Kidney Txp eval TECHNIQUE: Non-invasive, real time duplex exam of the extracranial carotidcirculation with Doppler ultrasonic waveform and spectral analysis wasperformed. COMPARISON: None. FINDINGS: Right: CCA: 108 cm/s ICA: 95 cm/s ECA: 94 cm/s Vertebral A: 51 cm/s Subclavian A: 118 cm/s Left: CCA: 92 cm/s ICA: 80 cm/s ECA: 97 cm/s Vertebral A: 63 cm/s Subclavian A: 214 cm/s (LUE AVF present) IMPRESSION: Right: No significant carotid plaque is demonstrated. Flow is present inthe CCA, ICA, and ECA. ICA velocities do not demonstrate evidence of ahemodynamically significant stenosis (less than 50%). Left: No significant carotid plaque is demonstrated. Flow is present inthe CCA, ICA, and ECA. ICA velocities do not demonstrate evidence of ahemodynamically significant stenosis (less than 50%). Vertebral artery flow is antegrade, bilaterally. Subclavian artery flow is multiphasic on the right. The left subclavian artery demonstrates elevated, monophasic flow due tothe presence of LUE AVF. COMMUNICATION: Per this written report. Dictated by Bertin Christina on 06/10/2021 3:36 PM By electronically signing this report, I, the attending physician, attestthat I have personally reviewed the images/data for the aboveexamination(s) and I agree with the final edited report. Signed by Terry Hernandez on 06/11/2021 2:52 PM us Geovanna Sheppard MD CV VASCULAR PROCEDURES Final Res ult * XR Panorex (06/10/2021 2:20 PM EDT) Anatomical Region Laterality Modality Jaw region Panoramic X-Ray Impressions 06/10/2021 2:38 PM EDT FINDINGS/IMPRESSION: Multiple missing mandibular teeth. Lucency along the right lateral mandibular incisor, may represent periapical abscess. CRITICAL RESULT: ?? No. COMMUNICATION: Per this written report. Signed by Fox Nieto on ??06/10/2021 2:38 PM Narrative 06/10/2021 2:38 PM EDT Exam/Procedure: XR PANOREX ordered by GEOVANNA SHEPPARD [id number] CLINICAL INDICATION: Kidney Transplant evaluation TECHNIQUE: XR PANOREX COMPARISON: None. Procedure Note Fox Nieto MD - 06/10/2021 Exam/Procedure: XR PANOREX ordered by GEOVANNA SHEPPARD [id number] CLINICAL INDICATION: Kidney Transplant evaluation TECHNIQUE: XR PANOREX COMPARISON: None. IMPRESSION: FINDINGS/IMPRESSION: Multiple missing mandibular teeth. Lucency along the right lateralmandibular incisor, may represent periapical abscess. CRITICAL RESULT: No. COMMUNICATION: Per this written report. Signed by Fox Nieto on 06/10/2021 2:38 PM Geovanna Sheppard MD IMG XR PROCEDURES Final Result * XR Chest 2 Views (06/10/2021 2:12 PM EDT) Anatomical Region Laterality Modality Chest Digital Radiogra phy Impressions 06/10/2021 2:37 PM EDT Normal chest examination. CRITICAL RESULT: ?? No. COMMUNICATION: Per this written report. By electronically signing this report, I, the attending physician, attest that I have personally reviewed the images/data for the above examination(s) and agree with the final edited report. Signed by Fox Nieto on ??06/10/2021 2:37 PM Narrative 06/10/2021 2:37 PM EDT Exam/Procedure: XR CHEST 2 VIEWS ordered by GEOVANNA SHEPPARD, [id number] CLINICAL INDICATION: Kidney Transplant evaluation TECHNIQUE: XR CHEST 2 VIEWS COMPARISON: Chest radiograph 11/21/2016 and CTA cardiac 03/02/2021 FINDINGS: Lungs are clear. No focal or diffuse airspace changes. Normal cardiomediastinal contours. No pneumothorax. No pleural effusion. No acute osseous pathology. Procedure Note Fox Nieto MD - 06/10/2021 Exam/Procedure: XR CHEST 2 VIEWS ordered by GEOVANNA SHEPPARD [id number] CLINICAL INDICATION: Kidney Transplant evaluation TECHNIQUE: XR CHEST 2 VIEWS COMPARISON: Chest radiograph 11/21/2016 and CTA cardiac 03/02/2021 FINDINGS: Lungs are clear. No focal or diffuse airspace changes. Normal cardiomediastinal contours. No pneumothorax. No pleural effusion. No acute osseous pathology. IMPRESSION: Normal chest examination. CRITICAL RESULT: No. COMMUNICATION: Per this written report. By electronically signing this report, I, the attending physician, la I have personally reviewed the images/data for the aboveexamination(s) and agree with the final edited report. Signed by Fox Nieto on 06/10/2021 2:37 PM Geovanna Sheppard MD IMG XR PROCEDURES Final Result documented in this encounter Visit Diagnoses Diagnosis End stage renal disease (CMS/HCC)- Primary End stage renal disease End stage renal disease (CMS/HCC) End stage renal disease End stage renal disease (CMS/HCC) End stage renal disease End stage renal disease (CMS/HCC) End stage renal disease documented in this encounter Care Teams Learning And Development Specialist Relationship Specialty Start Date End Date Edgar Fournier MD [address] [place] [address] PCP - General 12/25/20 Enrique Griffith MD [address] [place] [address] Referring Physician Nephrology 01/08/21 documented as of this encounter
--- OUTSIDE RECORDS SUMMARY | 2024-07-12 13:05 | XMS_ITS | Encounter Summary ---
Author Organization [facility] Address [address] [id number] Care Team Providers Care Process Control Engineer Name Role Phone Edgar Fournier MD Primary Care Provider [phone] Enrique Griffith MD Unavailable [phone] Encounter Details Date Type Department Care Team (Late st Contact Info) Description 06/18/2021 Telephone [facility] [address] [facility] [address] [place] [phone] Zion Virgen, RN HOSPITAL KIDNEY [id number] [address] [phone] Social History Tobacco Use Types Packs/Day Years [...] Encounter - Zion Virgen RN - 06/18/2021 2:22 PM EDT Attempted to call patient, VM not set up documented in this encounter Plan of Treatment Not on file documented as of this encounter Visit Diagnoses Not on filedocumented in this encounter Care Teams Process Control Engineer Relationship Specialty Start Date End Date Edgar Fournier MD [address] [place] [address] PCP - General 12/25/20 Enrique Griffith MD [address] [place] [phone] Referring Physician Nephrology 01/08/21 documented as of this encounter
--- OUTSIDE RECORDS SUMMARY | 2024-07-12 13:05 | XMS_ITS | Encounter Summary ---
Author Organization [facility] Address [address] [id number] Care Team Providers Care Telephone Clerk Telegraph Office Name Role Phone Edgar Fournier MD Primary Care Provider [phone] Enrique Griffith MD Unavailable [phone] Encounter Details Date Type Department Care Team (Late st Contact Info) Description 03/29/2022 Telephone [facility] [address] [facility] [address] [place] [phone] Zion Virgen RN HOSPITAL KIDNEY [id number] [address] [phone] Social History Tobacco Use Types Packs/Day Years [...] Telephone Encounter - Zion Virgen RN - 03/29/2022 11:27 AM EDT Attempted to call patient at both available numbers, left VM (see 03/25 note for reason for call) documented in this encounter Plan of Treatment Not on file documented as of this encounter Visit Diagnoses Not on filedocumented in this encounter Care Teams Telephone Clerk Telegraph Office Relationship Specialty Start Date End Date Edgar Fournier MD [address] [place] [address] PCP - General 12/25/20 Enrique Griffith MD [address] [place] [address] Referring Physician Nephrology 01/08/21 documented as of this encounter
--- OUTSIDE RECORDS SUMMARY | 2024-07-12 13:05 | XMS_ITS | Encounter Summary ---
Author Organization [facility] Address [address] [phone] Care Team Providers Care Identity Management Developer Name Role Phone Edgar Fournier MD Primary Care Provider [phone] Enrique Griffith MD Unavailable [phone] Encounter Details Date Type Department Care Team (Late st Contact Info) Description 07/30/2021 Telephone [facility] [address] [facility] [address] [place] [phone] Zion Virgen RN HOSPITAL KIDNEY [id number] [address] [phone] Social History Tobacco Use Types Packs/Day Years [...] Telephone Encounter - Zion Virgen RN - 07/30/2021 12:40 PM EST Attempted to call patient voice mailbox not set up unable to leave VM documented in this encounter Plan of Treatment Not on file documented as of this encounter Visit Diagnoses Not on filedocumented in this encounter Care Teams Identity Management Developer Relationship Specialty Start Date End Date Edgar Fournier MD [address] [place] [address] PCP - General 12/25/20 Enrique Griffith MD [address] [place] [address] Referring Physician Nephrology 01/08/21 documented as of this encounter
--- OUTSIDE RECORDS SUMMARY | 2024-07-12 13:05 | XMS_ITS | Encounter Summary ---
Author Organization [facility] Address [address] [place] [address] Care Team Providers Care Race Starter Name Role Phone Edgar Fournier MD Primary Care Provider [phone] Enrique Griffith MD Unavailable [phone] Reason for Referral * Imaging (Routine) - Closed Specialty Diagnoses / Procedures Referred By Declan hines Referred To Contact Cardiology Diagnoses End stage renal disease (CMS/HCC) Procedures VAS US Carotid Duplex Bilateral Geovanna Sheppard MD [address] [address] Phone: tel: fax: Referral ID Status Reason Start Date Expiration Date V isits Requested Visits Authorized [id number] Closed Perform Procedure 05/20/2021 11/19/2022 1 1 Reason for Visit * Imaging (Routine) - Closed Specialty Diagnoses / Procedures Referred By Declan hines Referred To Contact Cardiology Diagnoses End stage renal disease (CMS/HCC) Procedures VAS US Carotid Duplex Bilateral Geovanna Sheppard MD [address] [address] Phone: tel: fax: Referral ID Status Reason Start Date Expiration Date V isits Requested Visits Authorized [id number] Closed Perform Procedure 05/20/2021 11/19/2022 1 1 Encounter Details Date Type Department Care Team (Latest Contact Info) Description 06/10/2021 2:44 PM EDT - 06/10/2021 11:59 PM EDT Hospital Encounter [facility] [address] [place] [address] End stage renal disease (CMS/HCC) Discharge Disposition: Home or Self Care Social [...] 3 (three) times a day with meals. cycloSPORINE modified (Gengraf) 25 MG capsule Take 4 capsules (100 mg) by mouth 2 (two) times a day. doxazosin (Cardura) 8 MG tablet Take 1 tablet (8 mg) by mouth every night. entecavir (Baraclude) 0.5 MG tablet Take 1 tablet (0.5 mg) by mouth 1 (one) time per week. Take every . ergocalciferol (ergocalciferol) 1.25 MG (50597 UT) capsule Take 1 capsule (50,000 Units) by mouth 3 (three) times a week. hydrALAZINE (Apresoline) 100 MG tablet Take 1 [...] by mouth 2 (two) times a day. ALPRAZolam (Xanax) 0.5 MG tablet Take 0.5 mg by mouth at night if needed for anxiety. 03/20/2023 cloNIDine (Catapres) 0.1 MG tablet Take 0.1 mg by mouth 2 (two) times a day. 09/22/2017 11/08/2021 cyclobenzaprine (Flexeril) 10 MG tablet Take 10 mg by mouth 2 (two) times a day if needed. 10/08/2015 11/08/2021 HumuLIN N KWIKPEN 100 UNIT/ML injection Inject under the skin 3 (three) times a day with meals. Per sliding scale 01/12/2021 11/08/2021 Melatonin 5 MG tablet tablet Take 10 mg by mouth every night. 03/20/2023 metoprolol succinate XL (Toprol-XL) 100 MG 24 hr tablet Take 1 tablet by mouth 1 (one) time each day. 03/20/2023 ondansetron (Zofran) 4 MG tablet Take 1 tablet by mouth every 6 (six) hours if needed. 03/31/2020 11/08/2021 documented as of this encounter Plan of Treatment Not on file documented as of this encounter Procedures Procedure Name Priority Date/Time Associated Diagnosis Comments VAS US CAROTID DUPLEX BILATERAL Routine 06/10/2021 3:24 PM EDT End stage renal disease (CMS/HCC) documented in this encounter Results * VAS US Carotid [...] US CAROTID DUPLEX BILATERAL ordered by GEOVANNA SHEPPARD [id number] CLINICAL INDICATION: Kidney Txp eval TECHNIQUE: Non-invasive, [...] US CAROTID DUPLEX BILATERAL ordered by GEOVANNA [id number] CLINICAL INDICATION: Kidney Txp eval TECHNIQUE: Non-invasive, [...] MD CV VASCULAR PROCEDURES Final Res ult documented in this encounter Visit Diagnoses Diagnosis End stage renal disease (CMS/[facility]) End stage renal disease documented in this encounter Care Teams Race Starter Relationship Specialty Start Date End Date Edgar Fournier MD [address] [place] [address] PCP - General 12/25/20 Enrique Griffith MD [address] [place] [phone] Referring Physician Nephrology 01/08/21 documented as of this encounter
--- OUTSIDE RECORDS SUMMARY | 2024-07-12 13:05 | XMS_ITS | Encounter Summary ---
Author Organization [facility] Address [address] [place] [address] Care Team Providers Care Cement Truck Loader Name Role Phone Edgar Fournier MD Primary Care Provider [phone] Enrique Griffith MD Unavailable [phone] Encounter Details Date Type Department Care Team (Latest Contact Info) Description 06/10/2021 Travel Social History Tobacco Use Types Packs/Day [...] on filedocumented in this encounter Care Teams Cement Truck Loader Relationship Specialty Start Date End Date Edgar Fournier MD [facility] [address] PCP - General 12/25/20 Enrique Griffith MD [address] [place] [phone] Referring Physician Nephrology 01/08/21 documented as of this encounter
--- OUTSIDE RECORDS SUMMARY | 2024-07-12 13:05 | XMS_ITS | Encounter Summary ---
Author Organization [facility] Address [address] [id number] Care Team Providers Care Decorating Machine Tender Name Role Phone Edgar Fournier MD Primary Care Provider [phone] Enrique Griffith MD Unavailable [phone] Encounter Details Date Type Department Care Team (Late st Contact Info) Description 10/15/2021 Telephone [facility] [address] [facility] [address] [place] [phone] Zion Virgen RN HOSPITAL KIDNEY [id number] [address] [phone] Social History Tobacco Use Types Packs/Day Years [...] encounter Miscellaneous Notes * Telephone Encounter - iZon Virgen RN - 10/15/2021 11:31 AM EST Attempted to call patient, left VM documented in this encounter Plan of Treatment Not on file documented as of this encounter Visit Diagnoses Not on filedocumented in this encounter Care Teams Decorating Machine Tender Relationship Specialty Start Date End Date Edgar Fournier MD [address] [place] [address] PCP - General 12/25/20 Enrique Griffith MD [address] [place] [address] Referring Physician Nephrology 01/08/21 documented as of this encounter
--- OUTSIDE RECORDS SUMMARY | 2024-07-12 13:05 | XMS_ITS | Encounter Summary ---
Author Organization [facility] Address [address] [place] [address] Care Team Providers Care Jowl Trimmer Name Role Phone Edgar Fournier MD Primary Care Provider [phone] Enrique Griffith MD Unavailable [phone] Encounter Details Date Type Department Care Team (Late st Contact Info) Description 11/12/2021 Telephone [facility] [address] [facility] [address] [place] [phone] Armani Dawson Social History Tobacco Use Types [...] * Telephone Encounter - Armani Woodward - 11/12/2021 1:12 PM EDT Quarterly dialysis request report faxed to patient's reported dialysis center. documented in this encounter Plan of Treatment Not on file documented as of this encounter Visit Diagnoses Not on filedocumented in this encounter Care Teams Jowl Trimmer Relationship Specialty Start Date End Date Edgar Fournier MD [address] [place] [address] PCP - General 12/25/20 Enrique Griffith MD [address] [place] [address] Referring Physician Nephrology 01/08/21 documented as of this encounter
--- OUTSIDE RECORDS SUMMARY | 2024-07-12 13:05 | XMS_ITS | Encounter Summary ---
Author Organization [facility] Address [address] [place] [address] Care Team Providers Care Excelsior Machine Tender Name Role Phone Edgar Fournier MD Primary Care Provider [phone] Enrique Griffith MD Unavailable [phone] Encounter Details Date Type Department Care Team (Late st Contact Info) Description 03/11/2022 Orders Only Professional [facility] Nephrology, Bone & Mineral Metabolism [address] [facility], [address] [place] [address] Eleanor Perez [address] [address] ESRD (end stage renal disease) ([facility]) (Primary Dx); Complications due to vascular device, implant, and graft, subsequent encounter Social History Tobacco Use Types Packs/Day [...] Diagnoses Diagnosis ESRD (end stage renal disease) (CMS/[facility])- Primary End stage renal disease Complications due to vascular device, implant, and graft, subsequent encounter documented in this encounter Care Teams Excelsior Machine Tender Relationship Specialty Start Date End Date Edgar Fournier MD [address] [place] [address] PCP - General 12/25/20 Enrique Griffith MD [address] [place] [phone] Referring Physician Nephrology 01/08/21 documented as of this encounter
--- OUTSIDE RECORDS SUMMARY | 2024-07-12 13:05 | XMS_ITS | Encounter Summary ---
Author Organization [facility] Address [address] [place] [address] Care Team Providers Care Certified Scrub Tech Name Role Phone Edgar Fournier MD Primary Care Provider [phone] Enrique Griffith MD Unavailable [phone] Encounter Details Date Type Department Care Team (Latest Contact Info) Description 11/08/2021 Travel Social History Tobacco Use Types Packs/Day [...] as of this encounter Care Teams Certified Scrub Tech Relationship Specialty Start Date End Date Edgar Fournier MD [address] [place] [address] PCP - General 12/25/20 Enrique Griffith MD [address] [place] [address] Referring Physician Nephrology 01/08/21 documented as of this encounter
--- OUTSIDE RECORDS SUMMARY | 2024-07-12 13:05 | XMS_ITS | Encounter Summary ---
Author Organization [facility] Address [address] [id number] Care Team Providers Care Decorating And Assembly Supervisor Name Role Phone Edgar Fournier MD Primary Care Provider [phone] Enrique Griffith MD Unavailable [phone] Encounter Details Date Type Department Care Team (Late st Contact Info) Description 03/25/2022 Telephone [facility] Transplant Center [address] [facility] [address] [place] [phone] Zion Virgen RN HOSPITAL KIDNEY [id number] [address] [phone] Social History Tobacco Use Types Packs/Day Years [...] Telephone Encounter - Zion Virgen RN - 03/25/2022 11:52 AM EDT Attempted to call patient to check on: Weight loss progress (per las conversation bariatric procedure scheduled for Jun 2022, but wanted to check if patient has lost additional weight. Patient panorex showed possible abscess, needed to ask if patient has seen dentist about this. Need to discuss scheduling annual testing. documented in this encounter Plan of Treatment Not on file documented as of this encounter Visit Diagnoses Not on filedocumented in this encounter Care Teams Decorating And Assembly Supervisor Relationship Specialty Start Date End Date Edgar Fournier MD [address] [place] [address] PCP - General 12/25/20 Enrique Griffith MD [address] [place] [phone] Referring Physician Nephrology 01/08/21 documented as of this encounter
--- OUTSIDE RECORDS SUMMARY | 2024-07-12 13:05 | XMS_ITS | Encounter Summary ---
Author Organization [facility] Address [address] [phone] Care Team Providers Care Hvac Services Professional Name Role Phone Edgar Fournier MD Primary Care Provider [phone] Enrique Griffith MD Unavailable [phone] Encounter Details Date Type Department Care Team (Late st Contact Info) Description 09/06/2021 Telephone [facility] Transplant Center [address] [facility] [address] [place] [phone] Zion Virgen RN HOSPITAL KIDNEY [id number] [address] [phone] Social History Tobacco Use Types Packs/Day Years [...] Telephone Encounter - Zion Virgen RN - 09/06/2021 10:32 AM EST Called patient to ask after weight loss progress, and if his hernia had been adressed. Per patient his situation has not improved, states that his appointment with surgeon had to be canceled due to the surgeons schedule, patient states he will call surgeons office to get this rescheduled. Denies alisha carvajal at present. documented in this encounter Plan of Treatment Not on file documented as of this encounter Visit Diagnoses Not on filedocumented in this encounter Care Teams Hvac Services Professional Relationship Specialty Start Date End Date Edgar Fournier MD [address] [place] [address] PCP - General 12/25/20 Enrique Griffith MD [address] [place] [address] Referring Physician Nephrology 01/08/21 documented as of this encounter
--- OUTSIDE RECORDS SUMMARY | 2024-07-12 13:05 | XMS_ITS | Encounter Summary ---
Author Organization [facility] Address [address] [id number] Care Team Providers Care Hemmer Chainstitch Name Role Phone Edgar Fournier MD Primary Care Provider [phone] Enrique Griffith MD Unavailable [phone] Encounter Details Date Type Department Care Team (Late st Contact Info) Description 12/14/[address] [facility] Transplant Center [address] [facility] [address] [place] [phone] Zion Virgen RN HOSPITAL KIDNEY [id number] [address] [phone] Social History Tobacco Use Types Packs/Day Years [...] Telephone Encounter - Zion Virgen RN - 12/14/2021 1:25 PM EDT Called patient, asked after weight loss, per patient he has appointment with bariatric physician on12/22 to production sorter surgery. Patient also states that he has had colonoscopy in September (have requested record), also states that he's been cleared by his dentist, asked patient if he would be willingto take dental clearance form to his dentist states that he would do so. documented in this encounter Plan of Treatment Not on file documented as of this encounter Visit Diagnoses Not on filedocumented in this encounter Care Teams Hemmer Chainstitch Relationship Specialty Start Date End Date Edgar Fournier MD [address] [place] [address] PCP - General 12/25/20 Enrique Griffith MD [address] [place] [address] Referring Physician Nephrology 01/08/21 documented as of this encounter
--- OUTSIDE RECORDS SUMMARY | 2024-07-12 13:05 | XMS_ITS | Encounter Summary ---
Author Organization [facility] Address [address] [place] [address] Care Team Providers Care Director Safety Name Role Phone Edgar Fournier MD Primary Care Provider [phone] Enrique Griffith MD Unavailable [phone] Encounter Details Date Type Department Care Team (Latest Contact Info) Description 06/10/2021 2:06 PM EDT - 06/10/2021 2:43 PM EDT Hospital Encounter [facility] [address], 1[address] [place] [phone] End stage renal disease ([facility]/HCC) Discharge Disposition: Home or Self Care Social [...] Take every . ergocalciferol (ergocalciferol) 1.25 MG (21354 UT) capsule Take 1 capsule (50,000 Units) [...] Name Priority Date/Time Associated Diagnosis Comments XR PANOREX Routine 06/10/2021 2:20 PM EDT End stage renal disease ([facility]) documented in this encounter Results * XR Panorex (06/10/2021 2:20 PM EDT) [...] Exam/Procedure: XR PANOREX ordered by GEOVANNA SHEPPARD [id number] CLINICAL INDICATION: Kidney Transplant evaluation TECHNIQUE: XR PANOREX COMPARISON: None. Procedure Note Fox Nieto MD - 06/10/2021 Exam/Procedure: XR PANOREX ordered by GEOVANNA SHEPPARD [id number] CLINICAL INDICATION: Kidney Transplant evaluation TECHNIQUE: XR PANOREX COMPARISON: None. IMPRESSION: FINDINGS/IMPRESSION: Multiple missing mandibular teeth. Lucency along the right lateralmandibular incisor, may represent periapical abscess. CRITICAL RESULT: No. COMMUNICATION: Per this written report. Signed by Fox Nieto on 06/10/2021 2:38 PM Geovanna Sheppard MD IMG XR PROCEDURES Final Result documented in this encounter Visit Diagnoses Diagnosis End stage renal disease ([facility]) End stage renal disease documented in this encounter Care Teams Director Safety Relationship Specialty Start Date End Date Edgar Fournier MD [address] [place] [address] PCP - General 12/25/20 Enrique Griffith MD [address] [place] [phone] Referring Physician Nephrology 01/08/21 documented as of this encounter
--- OUTSIDE RECORDS SUMMARY | 2024-07-12 13:05 | XMS_ITS | Encounter Summary ---
Author Organization [facility] Address [address] [phone] Care Team Providers Care Welding Manager Name Role Phone Edgar Fournier MD Primary Care Provider [phone] Enrique Griffith MD Unavailable [phone] Encounter Details Date Type Department Care Team (Late st Contact Info) Description 01/14/2022 Telephone [facility] Transplant Center [address] [facility] [address] [place] [phone] Zion Virgen RN HOSPITAL KIDNEY [id number] [address] [phone] Social History Tobacco Use Types Packs/Day Years [...] Telephone Encounter - Zion Virgen RN - 01/14/2022 11:27 AM EDT Called patient asked after recent bariatric appointment, per patient he is scheduled to have surgery in June 2022 (their earliest available). Per patient he is down to 118 kg, (goal is 112) congratulated patient on weight loss. Patient denies needs at present. documented in this encounter Plan of Treatment Not on file documented as of this encounter Visit Diagnoses Not on filedocumented in this encounter Care Teams Welding Manager Relationship Specialty Start Date End Date Edgar Fournier MD [address] [place] [address] PCP - General 12/25/20 Enrique Griffith MD [address] [place] [phone] Referring Physician Nephrology 01/08/21 documented as of this encounter
--- OUTSIDE RECORDS SUMMARY | 2024-07-12 13:05 | XMS_ITS | Encounter Summary ---
Author Organization [facility] Address [address] [place] [address] Care Team Providers Care Kiln Door Repairer Name Role Phone Edgar Fournier MD Primary Care Provider [phone] Enrique Griffith MD Unavailable [phone] Encounter Details Date Type Department Care Team (Late st Contact Info) Description 08/19/2021 Telephone [facility] Transplant Center [address] [facility] [address] [place] [phone] Armani Dawson Social History Tobacco Use Types [...] * Telephone Encounter - Armani Woodward - 08/19/2021 3:03 PM EST Quarterly dialysis request report has been faxed to patient's reported dialysis center. documented in this encounter Plan of Treatment Not on file documented as of this encounter Visit Diagnoses Not on filedocumented in this encounter Care Teams Kiln Door Repairer Relationship Specialty Start Date End Date Edgar Fournier MD [address] [place] [address] PCP - General 12/25/20 Enrique Griffith MD [address] [place] [phone] Referring Physician Nephrology 01/08/21 documented as of this encounter
--- OUTSIDE RECORDS SUMMARY | 2024-07-12 13:05 | XMS_ITS | Encounter Summary ---
Author Organization [facility] Address [address] [place] [address] Care Team Providers Care Physician Anesthesiologist Name Role Phone Edgar Fournier MD Primary Care Provider [phone] Enrique Griffith MD Unavailable [phone] Encounter Details Date Type Department Care Team (Late st Contact Info) Description 03/29/2022 Orders Only Professional [facility] Nephrology, Bone & Mineral Metabolism [address] [facility], [address] [place] [address] Eleanor Perez [address] [address] ESRD (end stage renal disease) ([facility]) (Primary Dx); Complications due to vascular device, [...] Diagnoses Diagnosis ESRD (end stage renal disease) (CMS/[facility])- Primary End stage renal disease Complications due to vascular device, implant, and graft, subsequent encounter documented in this encounter Care Teams Physician Anesthesiologist Relationship Specialty Start Date End Date Edgar Fournier MD [address] [place] [address] PCP - General 12/25/20 Enrique Griffith MD [address] [place] [phone] Referring Physician Nephrology 01/08/21 documented as of this encounter
--- OUTSIDE RECORDS SUMMARY | 2024-07-12 13:05 | XMS_ITS | Encounter Summary ---
Author Organization [facility] Address [address] [place] [address] Care Team Providers Care Conditioner Tumbler Operator Name Role Phone Edgar Fournier MD Primary Care Provider [phone] Enrique Griffith MD Unavailable [phone] Encounter Details Date Type Department Care Team (Latest Contact Info) Description 06/10/2021 2:00 PM EDT - 06/10/2021 2:05 PM EDT Hospital Encounter [place] [facility] [address], [address] [place] [phone] End stage renal disease ([facility]) Discharge Disposition: Home or Self Care Social [...] Take every . ergocalciferol (ergocalciferol) 1.25 MG (65116 UT) capsule Take 1 capsule (50,000 Units) [...] Name Priority Date/Time Associated Diagnosis Comments XR CHEST 2 VIEWS Routine 06/10/2021 2:12 PM EDT End stage renal disease (CMS/HCC) documented in this encounter Results * XR Chest 2 Views (06/10/2021 2:12 [...] CHEST 2 VIEWS ordered by GEOVANNA SHEPPARD [id number] CLINICAL INDICATION: Kidney Transplant evaluation TECHNIQUE: XR CHEST 2 VIEWS COMPARISON: Chest radiograph 11/21/2016 and CTA cardiac 03/02/2021 FINDINGS: Lungs are clear. No focal or diffuse airspace changes. Normal cardiomediastinal contours. No pneumothorax. No pleural effusion. No acute osseous pathology. Procedure Note Fox Nieto MD - 06/10/2021 Exam/Procedure: XR CHEST 2 VIEWS ordered by GEOVANNA SHEPPARD [id number] CLINICAL INDICATION: Kidney Transplant evaluation TECHNIQUE: XR [...] by Fox Nieto on 06/10/2021 2:37 PM us Geovanna Sheppard MD IMG XR PROCEDURES Final Result documented in this encounter Visit Diagnoses Diagnosis End stage renal disease (CMS/HCC) End stage renal disease documented in this encounter Care Teams Conditioner Tumbler Operator Relationship Specialty Start Date End Date Edgar Fournier MD [address] [place] [address] PCP - General 12/25/20 Enrique Griffith MD [address] [place] [phone] Referring Physician Nephrology 01/08/21 documented as of this encounter
--- OUTSIDE RECORDS SUMMARY | 2024-07-12 13:05 | XMS_ITS | Encounter Summary ---
Author Organization [facility] Address [address] [phone] Care Team Providers Care Customer Support Agent Name Role Phone Edgar Fournier MD Primary Care Provider [phone] Enrique Griffith MD Unavailable [phone] Reason for Visit * Reason Comments Appointment Encounter Details Date Type Department Care Team (Late st Contact Info) Description 05/20/[address] [facility] Transplant Center [address] [facility] [address] [place] [phone] Janeth Navarrete [facility] [address] [phone] Appointment Social History Tobacco Use Types Packs/Day [...] encounter Miscellaneous Notes * Telephone Encounter - Janeth Navarrete - 05/20/2021 1:56 PM EDT Patient scheduled for 06/10 CXR/Panorex @ 1400 and vascular carotid @ 1500. Called and spoke with patient. Gave him appointment details and he verbalized understanding of all. Mailed appointment schedule with maps to patient. documented in this encounter Plan of Treatment Not on file documented as of this encounter Visit Diagnoses Not on filedocumented in this encounter Care Teams Customer Support Agent Relationship Specialty Start Date End Date Edgar Fournier MD [address] [place] [address] PCP - General 12/25/20 Enrique Griffith MD [address] [place] [phone] Referring Physician Nephrology 01/08/21 documented as of this encounter
--- OUTSIDE RECORDS SUMMARY | 2024-07-12 13:06 | XMS_ITS | Encounter Summary ---
Author Organization [facility] Address [address] [id number] Care Team Providers Care Geological Scout Name Role Phone Edgar Fournier MD Primary Care Provider [phone] Enrique Griffith MD Unavailable [phone] Reason for Visit * Reason Comments Appointment Called pt to confirm 04/06/21 [facility] Encounter Details Date Type Department Care Team (Late st Contact Info) Description 03/23/[address] [facility] [address] [facility] [address] [place] [phone] Janeth Navarrete [facility] [address] [phone] Appointment (Called pt to confirm 04/06/21 [facility]) Social History Tobacco Use Types Packs/Day Years [...] have Coronavirus / COVID-19? No / Unsure 03/02/2021 9:44 AM EDT documented as of this encounter Miscellaneous Notes * Telephone Encounter - Janeth Navarrete - 03/23/2021 9:50 AM EDT Per Christiano Mir in tree tapping laborer, patient is scheduled for RHC on 04/06/21 and they will call him about 1week prior to give him the arrival time and any instructions, as well as set up the covid test. Since we are not given the time of the RHC, it is difficult to schedule other appointments around this p rocedure. Called and spoke with patient. Informed him of 04/06/21 RHC and that he will be getting a call from the tree tapping laborer about 1 week prior with the arrival time and instructions, and that since I do not know the arrival time, I have added labs in the transplant center on 04/06/21 @ 1500 and a CXR/Panorex in [facility] on 04/06/21 @ 1530. Told patient to come on to transplant center immediately followinghis RHC, and that he can go have the CXR/Panorex after his labs are drawn. Told patient it is okay if he arrives earlier than the scheduled time for these appointments. He verbalized understanding ofall. Mailed 04/06/21 appointment schedule with maps to patient. [employer]PS Priority [phone]. documented in this encounter Plan of Treatment Not on file documented as of this encounter Visit Diagnoses Not on filedocumented in this encounter Care Teams Geological Scout Relationship Specialty Start Date End Date Edgar Fournier MD [address] [place] [address] PCP - General 12/25/20 Enrique Griffith MD [address] [place] [address] Referring Physician Nephrology 01/08/21 documented as of this encounter
--- OUTSIDE RECORDS SUMMARY | 2024-07-12 13:06 | XMS_ITS | Encounter Summary ---
Author Organization [facility] Address [address] [id number] Care Team Providers Care Stone Sawyer Name Role Phone Edgar Fournier MD Primary Care Provider [phone] Enrique Griffith MD Unavailable [phone] Encounter Details Date Type Department Care Team (Late st Contact Info) Description 05/20/2021 Telephone [facility] Transplant Center [address] [facility] [address] [place] [phone] Zion Virgen, RN HOSPITAL KIDNEY [id number] [address] [phone] Social History Tobacco Use Types Packs/Day Years [...] Telephone Encounter - Zion Virgen RN - 05/20/2021 11:29 AM EDT Called patient informed him of committee discussion, patient needs no further follow-up after RHC. Patient does however still need CXR, panorex, and carotid doppler, patient agreeable to having thesescheduled. Patient denies further needs, orders have been placed. documented in this encounter Plan of Treatment Not on file documented as of this encounter Visit Diagnoses Not on filedocumented in this encounter Care Teams Stone Sawyer Relationship Specialty Start Date End Date Edgar Fournier MD [address] [place] [address] PCP - General 12/25/20 Enrique Griffith MD [address] [place] [phone] Referring Physician Nephrology 01/08/21 documented as of this encounter
--- OUTSIDE RECORDS SUMMARY | 2024-07-12 13:06 | XMS_ITS | Encounter Summary ---
Author Organization [facility] Address [address] [id number] Care Team Providers Care Animal Science Instructor Name Role Phone Edgar Fournier MD Primary Care Provider [phone] Enrique Griffith MD Unavailable [phone] Encounter Details Date Type Department Care Team (Late st Contact Info) Description 04/27/2021 Telephone [facility] Transplant Center [address] [facility] [address] [place] [phone] Zion Virgen RN HOSPITAL KIDNEY [id number] [address] [phone] Social History Tobacco Use Types Packs/Day Years [...] Telephone Encounter - Zion Virgen RN - 04/29/2021 10:06 AM EDT Called patient to ask how he is doing (had COVID postivie test, tested for upcoming RHC) per patient he thinks it must have been a false positive as he has felt fine and has remained asymptomatic). Patient asked question regarding when he would be tested again prior to rescheduled RHC and when he would get paperwork about it. Informed patient that coordinator would reach out to team to figure outwhen that would happen, denies further needs. documented in this encounter Plan of Treatment Not on file documented as of this encounter Visit Diagnoses Not on filedocumented in this encounter Care Teams Animal Science Instructor Relationship Specialty Start Date End Date Edgar Fournier MD [address] [place] [address] PCP - General 12/25/20 Enrique Griffith MD [address] [place] [phone] Referring Physician Nephrology 01/08/21 documented as of this encounter
--- OUTSIDE RECORDS SUMMARY | 2024-07-12 13:06 | XMS_ITS | Encounter Summary ---
Author Organization [facility] Address [address] [place] [address] Care Team Providers Care Ratings Analyst Name Role Phone Edgar Fournier MD Primary Care Provider Enrique Griffith MD Unavailable [phone] Encounter Details Date Type Department Care Team (Late st Contact Info) Description 03/05/2021 Telephone [facility] Medicine Specialties [address] [place] [phone] Jake Gillespie MD [address] [place] [address] Social History Tobacco Use Types Packs/Day Years [...] encounter Miscellaneous Notes * Telephone Encounter - Jake Gillespie MD - 03/05/2021 5:45 PM EDT The 2017 colonoscopy was performed during one of the patient's acute variceal bleeds and was not a surveillance procedure. All that was seen was red blood and no lesions in the colon. If he is otherwise stable, he can have a screening colonoscopy at any time since he is over age 45. . But there is no recommendation regarding f/u of the 2017 procedure. ----- Message from Zion Virgen RN sent at 03/05/2021 12:57 PM EDT ----- Afternoon, I'm one of the [facility] pre-kidney transplant coordinators. I have a patient Aiden Stauffer . I believe you performed a colonoscopy on this patient October 20, 2016. There doesn't seem robert any recommendation for when Mr. Stauffer should have a repeat colonoscopy performed. I'm hoping you would be willing to review the report and provide me with a recommendation. Thank you documented in this encounter Plan of Treatment Not on file documented as of this encounter Visit Diagnoses Not on filedocumented in this encounter Care Teams Ratings Analyst Relationship Specialty Start Date End Date Edgar Fournier MD [address] [place] [address] PCP - General 12/25/20 Enrique Griffith MD [address] [place] [phone] Referring Physician Nephrology 01/08/21 documented as of this encounter
--- OUTSIDE RECORDS SUMMARY | 2024-07-12 13:06 | XMS_ITS | Encounter Summary ---
Author Organization [facility] Address [address] [place] [address] Care Team Providers Care Therapist Name Role Phone Edgar Fournier MD Primary Care Provider [phone] Enrique Griffith MD Unavailable [phone] Reason for Referral * Imaging (Routine) - Closed Specialty Diagnoses / Procedures Referred By Declan hines Referred To Contact Cardiology Diagnoses End stage renal disease (CMS/HCC) Procedures Echo, Adult Transthoracic (TTE) Complete [id number] Petrona Sheppard MD [address] [address] Phone: tel: fax: Referral ID Status Reason Start Date Expiration Date V isits Requested Visits Authorized [id number] Closed Perform Procedure 02/04/2021 08/03/2021 1 1 Reason for Visit * Imaging (Routine) - Closed Specialty Diagnoses / Procedures Referred By Declan hines Referred To Contact Cardiology Diagnoses End stage renal disease (CMS/HCC) Procedures Echo, Adult Transthoracic (TTE) Complete [id number] Petrona Sheppard MD [address] [address] Phone: tel: fax: Referral ID Status Reason Start Date Expiration Date V isits Requested Visits Authorized [id number] Closed Perform Procedure 02/04/2021 08/03/2021 1 1 Encounter Details Date Type Department Care Team (Latest Contact Info) Description 03/02/2021 3:12 PM EDT - 03/02/2021 11:59 PM EDT Hospital Encounter Cardiac Imaging [address] [place] [address] End stage renal disease (CMS/HCC) Discharge Disposition: [...] AM EDT documented as of this encounter Medications [...] Take every . ergocalciferol (ergocalciferol) 1.25 MG (16734 UT) capsule Take 1 capsule (50,000 Units) [...] Procedure Name Priority Date/Time Associated Diagnosis Comments ECHO, ADULT TRANSTHORACIC COMPLETE W/ CONTRAST Routine 03/02/2021 4:06 PM EDT End stage renal disease (CMS/HCC) documented in this encounter Results * ECHO, ADULT TRANSTHORACIC COMPLETE W/ CONTRAST (03/02/2021 4:06 PM EDT) [facility] MV E Vmax 91.3 cm/s TAYLOR ISCV MV A Vmax 83.1 cm/s TAYLOR ISCV TR Max PG 30.9 mmHG TAYLOR ISCV BSA 2.2 m2 TAYLOR ISCV LVIDd 54.0 mm TAYLOR ISCV IVSd 11.7 mm TAYLOR ISCV LVPWd 11.7 mm TAYLOR ISCV LV MASS(C)D 252.8 g TAYLOR ISCV LVIDs 40.0 mm TAYLOR ISCV LA dimension 51.0 mm TAYLOR ISCV LAV(MOD-4ch) 121.0 mL TAYLOR ISCV NAZARIO 61.2699317 [id number] 000 mL/m2 TAYLOR ISCV Ao Sinus Diam 32.0 mm TAYLOR ISCV Ao Root Diam 32.0 cm TAYLOR ISCV LV EDV(MOD-4ch) 200.0 mL TAYLOR ISCV LV ESV(MOD4ch) 136.0 mL TAYLOR ISCV EF(MOD-sp4) 32.0 TAYLOR ISCV LV EDV(MOD-2ch) 232.0 mL TAYLOR ISCV LV ESV(MOD2ch) 137.0 mL TAYLOR ISCV EF(MOD-sp2) 40.0 TAYLOR ISCV EF(MOD-bp) 36.0 TAYLOR ISCV RV base 57.0 mm TAYLOR ISCV RV Mid 55.0 mm TAYLOR ISCV TR PG 31.6676600 [id number] 000 mmHg TAYLOR ISCV RVSP 46.0 mmHg TAYLOR ISCV RAP 15.6854923 1168910027 000 mmHg TAYLOR ISCV Anatomical Region Laterality Modality Echocardiography Narrative 03/02/2021 4:46 PM EDT Left Ventricle Left ventricle is dilated. Normal wall thickness. Global hypokinesis present. Mild-moderately reduced systolic function with a visually estimated EF of 30 - 40%. Right Ventricle Right ventricle is moderately-severely dilated. Normal systolic function. Left Atrium Left atrium volume index is severely increased. Right Atrium Right atrium is dilated. IVC/SVC IVC diameter is greater than 21 mm and decreases less than 50% during inspiration; therefore the estimated right atrial pressure is elevated (~15 mmHg). Mitral Valve Valve structure is normal. Trace transvalvular regurgitation. No stenosis. Tricuspid Valve Valve structure is normal. Moderate transvalvular regurgitation. No stenosis. The right ventricular systolic pressure is moderately elevated. Aortic Valve Mildly calcified cusps. No transvalvular regurgitation. No hemodynamically significant stenosis. Pulmonic Valve Valve structure is normal. Trace transvalvular regurgitation. No stenosis. Main pulmonary artery is normal. Ascending Aorta Normal sized sinus of Valsalva. Pericardium No pericardial effusion. Study Details A complete echocardiogram using two-dimensional (2D) and m-mode imaging with color and spectral flow Doppler was performed.Definity contrast was used during the study. us Petrona Sheppard MD CV ECHO PROCEDURES Final Result documented in this encounter Visit Diagnoses Diagnosis End stage renal disease (CMS/[facility]) End stage renal disease documented in this encounter Administered Medications Inactive Administered Medications - up to 3 most recent administrations Medication Order MAR Action Action Date Dose Rate Site perflutren lipid microspheres (Definity) injection 10 mcL/kg 10 mcL/kg, Intravenous, Once in imaging, 1 dose, Starting on Mon03/02/21 at 1537, Until Mon03/02/21 at 1538, Routine Given 03/02/2021 3:38 PM EDT documented in this encounter Care Teams Therapist Relationship Specialty Start Date End Date Edgar Fournier MD [address] [place] [address] PCP - General 12/25/20 Enrique Griffith MD [address] [place] [phone] Referring Physician Nephrology 01/08/21 documented as of this encounter
--- OUTSIDE RECORDS SUMMARY | 2024-07-12 13:06 | XMS_ITS | Encounter Summary ---
Author Organization [facility] Address [address] [place] [address] Care Team Providers Care Legal Word Processor Name Role Phone Edgar Fournier MD Primary Care Provider [phone] Enrique Griffith MD Unavailable [phone] Encounter Details Date Type Department Care Team (Late st Contact Info) Description 02/23/2021 Telephone [facility] [address] [place] [address] Elisha Jessica, RN CH-DIAGNOSTIC RADIOLOGY Social History Tobacco Use Types Packs/Day [...] have Coronavirus / COVID-19? No / Unsure 02/23/2021 9:25 AM EDT documented as of this encounter Plan of Treatment Not on file documented as of this encounter Visit Diagnoses Not on filedocumented in this encounter Care Teams Legal Word Processor Relationship Specialty Start Date End Date Edgar Fournier MD [address] [place] [address] PCP - General 12/25/20 Enrique Griffith MD [address] [place] [address] Referring Physician Nephrology 01/08/21 documented as of this encounter
--- OUTSIDE RECORDS SUMMARY | 2024-07-12 13:06 | XMS_ITS | Encounter Summary ---
Author Organization [facility] Address [address] [id number] Care Team Providers Care Boat Carpenter Name Role Phone Edgar Fournier MD Primary Care Provider [phone] Enrique Griffiht MD Unavailable [phone] Encounter Details Date Type Department Care Team (Late st Contact Info) Description 03/08/2021 Telephone [facility] Transplant Center [address] [facility] [address] [place] [phone] Zion Virgen, RN HOSPITAL KIDNEY [id number] [address] [phone] Social History Tobacco Use Types Packs/Day Years [...] Telephone Encounter - Zion Virgen RN - 03/08/2021 8:[address] scan reviewed by Dr. Sheppard, per Dr. Sheppard CT scan reviewed. The hernia should not get in our way. It is quite large, so if he ever wants it repaired, he should do it either before transplant or 6+ months after transplant. Vessels are okay for transplant. documented in this encounter Plan of Treatment Not on file documented as of this encounter Visit Diagnoses Not on filedocumented in this encounter Care Teams Boat Carpenter Relationship Specialty Start Date End Date Edgar Fournier MD [address] [place] [address] PCP - General 12/25/20 Enrique Griffith MD [address] [place] [phone] Referring Physician Nephrology 01/08/21 documented as of this encounter
--- OUTSIDE RECORDS SUMMARY | 2024-07-12 13:06 | XMS_ITS | Encounter Summary ---
Author Organization [facility] Address [address] [place] [address] Care Team Providers Care Organic Lab Worker Name Role Phone Edgar Fournier MD Primary Care Provider [phone] Enrique Griffith MD Unavailable [phone] Encounter Details Date Type Department Care Team (Latest Contact Info) Description 03/02/2021 Travel Social History Tobacco Use Types Packs/Day [...] on filedocumented in this encounter Care Teams Organic Lab Worker Relationship Specialty Start Date End Date Edgar Fournier MD Formerly named [facility] [place] [address] PCP - General 12/25/20 Enrique Griffith MD [address] [place] [phone] Referring Physician Nephrology 01/08/21 documented as of this encounter
--- OUTSIDE RECORDS SUMMARY | 2024-07-12 13:06 | XMS_ITS | Encounter Summary ---
Author Organization [facility] Address [address] [place] [address] Care Team Providers Care Patient Accounts Coordinator Name Role Phone Edgar Fournier MD Primary Care Provider [phone] Enrique Griffith MD Unavailable [phone] Encounter Details Date Type Department Care Team (Latest Contact Info) Description 01/28/2021 Travel Social History Tobacco Use Types Packs/Day [...] have Coronavirus / COVID-19? No / Unsure 01/28/2021 7:14 AM EDT documented as of this encounter Plan of Treatment Not on file documented as of this encounter Visit Diagnoses Not on filedocumented in this encounter Care Teams Patient Accounts Coordinator Relationship Specialty Start Date End Date Edgar Fournier MD [facility] [place] [address] PCP - General 12/25/20 Enrique Griffith MD [address] [place] [phone] Referring Physician Nephrology 01/08/21 documented as of this encounter
--- OUTSIDE RECORDS SUMMARY | 2024-07-12 13:06 | XMS_ITS | Encounter Summary ---
Author Organization [facility] Address [address] [place] [address] Care Team Providers Care Kick Press Operator Name Role Phone Edgar Fournier MD Primary Care Provider [phone] Enrique Griffith MD Unavailable [phone] Encounter Details Date Type Department Care Team (Late st Contact Info) Description 03/05/2021 Telephone [facility] [address] [place] [address] Elisha Jessica, RN CH-DIAGNOSTIC RADIOLOGY Social History [...] on filedocumented in this encounter Care Teams Kick Press Operator Relationship Specialty Start Date End Date Edgar Fournier MD [address] [place] [address] PCP - General 12/25/20 Enrique Griffith MD [address] [place] [address] Referring Physician Nephrology 01/08/21 documented as of this encounter
--- OUTSIDE RECORDS SUMMARY | 2024-07-12 13:06 | XMS_ITS | Encounter Summary ---
Author Organization [facility] Address [address] [id number] Care Team Providers Care Spring Assembler Name Role Phone Edgar Fournier MD Primary Care Provider [phone] Enrique Griffith MD Unavailable [phone] Reason for Referral * Imaging (Routine) - Closed Specialty Diagnoses / Procedures Referred By Declan hines Referred To Contact Radiology Diagnoses End stage renal disease (CMS/HCC) Procedures CT Angio Cardiac Coronary Arteries [id number] Geovanna Sheppard MD [address] [address] Phone: tel: fax: Referral ID Status Reason Start Date Expiration Date Visits Re quested Visits Authorized [id number] Closed 02/04/2021 08/03/2021 1 1 Reason for Visit * Imaging (Routine) - Closed Specialty Diagnoses / Procedures Referred By Declan hines Referred To Contact Radiology Diagnoses End stage renal disease ([facility]/HCC) Procedures CT Angio Cardiac Coronary Arteries [id number] Geovanna Sheppard MD [address] [address] Phone: tel: fax: Referral ID Status Reason Start Date Expiration Date Visits Re quested Visits Authorized [id number] Closed 02/04/2021 08/03/2021 1 1 Encounter Details Date Type Department Care Team (Late st Contact Info) Description 03/02/2021 9:52 AM EDT - 03/02/2021 9:54 AM EDT Hospital Encounter [facility] Radiology [address] [place] [address] Yana Weldon RN - [facility] End stage renal disease (CMS/HCC) Discharge Disposition: [...] AM EDT documented as of this encounter Discharge Instructions * Attachments The following attachments cannot be sent through Care Everywhere. * Angiography, Computed Tomography (CTA) (Cuban) documented in this encounter Medications at Time of Discharge aspirin 81 MG EC tablet Take 1 tablet (81 mg) by mouth 1 (one) time each day. doxazosin (Cardura) 8 MG tablet Take 1 tablet (8 mg) by mouth every night. entecavir (Baraclude) 0.5 MG tablet Take 1 tablet (0.5 mg) by mouth 1 (one) time per week. Take every . ergocalciferol (ergocalciferol) 1.25 MG (63675 UT) capsule Take 1 capsule (50,000 Units) [...] with meals. Per sliding scale 01/12/2021 11/08/2021 ondansetron (Zofran) 4 MG tablet Take 1 tablet by mouth every 6 (six) hours if needed. 03/31/2020 11/08/2021 documented as of this encounter Plan of Treatment Not on file documented as of this encounter Procedures Procedure Name Priority Date/Time Associated Diagnosis Comments CT ANGIO CARDIAC CORONARY ARTERIES Routine 03/02/2021 12:16 PM EDT End stage renal disease (CMS/HCC) documented in this encounter Results * CT Angio Cardiac Coronary Arteries (03/02/2021 12:16 PM EDT) Anatomical Region Laterality Modality Heart Computed Tomogra phy Impressions 03/02/2021 3:40 PM EDT 1. Mild coronary calcification with an Agatston score = 41.2 using the AJ-130 method, which represents 87 percentile when matched for age, gender and ethnicity. ??Vascular age is 65 years. 2. Non-obstructive coronary artery disease with foci of mild stenosis in the proximal RCA and mid LAD secondary to mixed calcified/noncalcified plaque. 3. CAD-RADS 2: Management recommendations: Consider preventative therapy and risk factor modification, particularly for patients with non-obstructive plaque in multiple segments. No further cardiac testing recommended prior to kidney transplantation. ??Can consider retesting with CCTA in 1 years or greater. 4. Aortic valve leaflet calcification noted. CRITICAL RESULT: No. COMMUNICATION: Per this written report. Dictated by Mandi Ritter on 03/02/2021 12:40 PM By electronically signing this report, I, the attending physician, attest that I have personally reviewed the images/data for the above examination(s) and agree with the final edited report. Signed by Kris Parham on ??03/02/2021 3:40 PM Narrative 03/02/2021 3:40 PM EDT Exam/Procedure: CT ANGIO CARDIAC CORONARY ARTERIES ordered by GEOVANNA SHEPPARD, [id number] CLINICAL INDICATION: 46 years Male Cardiac Evaluation Prior to Liver Transplantation Symptoms: kidney transplant evaluation Clinical Data Height: 170 cm Weight: 113 kg Risk Factors: ESRD, HTN Relevant Cardiac Diagnostic Tests: Echocardiogram TECHNIQUE: Procedure Data Image Acquisition: A Dual source 192 MDCT scanner ([employer]om[employer] Force, [employer]) was used for data acquisition. A non-contrast coronary calcium scan was initially performed. Bolus tracking in the ascending aorta with a threshold of 220HU was performed. Immediately afterwards, ECG synchronized Cardiac CT was then performed from cardiac base to apex using retrospective gating with ECG tube current modulation. A total of 80 mL Omnipaque 350mgI/mL contrast media was administered at 5 mL/sec followed by a saline flush using a biphasic injection protocol. ??A tube voltage of 90 kVp was used. ?? The patient received the following medications prior to the Cardiac CT: 100mg of po metoprolol, 0mg of IV metoprolol, and 0.8mg sublingual nitroglycerin. The average heart rate at the time of acquisition was 81 bpm (80 bpm to 82 bpm) and regular. Image Reconstruction: Transaxial images were reconstructed at 0.75 mm slice thickness. ??Data was reviewed interactively on an advanced workstation (fintonic) capable of 2 and 3 dimensional displays in all conventional reconstruction formats including multiplanar reformations, maximum intensity projections, curved multiplanar reformations, and volume rendered reconstructions. Selected routine images displaying relevant coronary anatomy and pathology were saved and sent to PACS. Complications: None Technical Quality: Overall image quality is Excellent. Coronary artery opacification is Excellent and the images are free of significant artifact. Total DLP (Dose-Length Product): 1831.63 mGy.cm . (25.6 mSv); Cardiac Portion: 1026 mGycm (14.4 mSv) Please note: The reported value represents the total of one or more individual components during the CT acquisition on this date and at this time, and as such, the same value may appear in more than one CT report depending on the interpreting/reporting physicians. COMPARISON: None. FINDINGS: -CT Coronary Calcium Scoring- LMA= 0 LAD= 17.8 LCX= 0 RCA= 23.4 Total calcium score = 41.2 using the AJ-130 method. This score is in the 87 percentile rank for age and gender, meaning that 13 % of patients of the same age and gender will have a higher score. The total volume score is 40.2. The calculated vascular age for this patient is 65 years. There is no identifiable calcification in the aortic wall. -Coronary CT Angiography- Coronary Arteries: The coronaries have normal origin and proximal course. The coronary arterial system is left ??dominant. Note: Stenosis is reported as maximum percentage diameter stenosis. Stenosis grading is reported using the following scheme. Quantitative Stenosis Grading: CAD-RADS 0: 0% - No visible stenosis CAD-RADS 1: 1-24% - Minimal stenosis CAD-RADS 2: 25-49% - Mild stenosis CAD-RADS 3: 50-69% - Moderate stenosis CAD-RADS 4A: 70-99% - Severe stenosis in 1-2 vessels CAD-RADS 4B: Left main >50%, or 3 vessel >70% CAD-RADS 5: 100% - Occluded Left Main: CAD-RADS 0 The left main bifurcates into the left anterior descending artery and left circumflex artery. LAD and Diagonals: CAD-RADS 2. Arises from the left main and gives off a bifurcating diagonal branch and septal perforators. Follows the typical course in the interventricular groove and wraps around the apex. There is mixed calcified/noncalcified at the take off of the diagonal branch causing mild stenosis. LAD secondary to mixed calcified/noncalcified plaque. LCx and Obtuse Marginals: CAD-RADS 1 Arises from the left main and gives off obtuse marginal. Follows the typical course in the atrioventricular groove. There is calcium shortly after take off causing minimal stenosis. RCA: CAD-RADS 2 Arises from the right coronary cusp and gives off PDA and PL branches. There is mixed calcified/noncalcified in the proximal RCA causing mild stenosis. Non Coronary Cardiac Findings: Aortic valve leaflet calcifications. Extra Cardiac Structures: Unremarkable. Procedure Note Kris Parham MD - 03/02/2021 Exam/Procedure: CT ANGIO CARDIAC CORONARY ARTERIES ordered by GEOVANNA SHEPPARD,[id number] CLINICAL INDICATION: 46 years Male Cardiac Evaluation Prior to LiverTransplantation Symptoms: kidney transplant evaluation Clinical Data Height: 170 cm Weight: 113 kg Risk Factors: ESRD, HTN Relevant Cardiac Diagnostic Tests: Echocardiogram TECHNIQUE: Procedure Data Image Acquisition: A Dual source 192 MDCT scanner ([employer] Force, [employer])was used for data acquisition. A non-contrast coronary calcium scan wasinitially performed. Bolus tracking in the ascending aorta with athreshold of 220HU was performed. Immediately afterwards, ECG synchronizedCardiac CT was then performed from cardiac base to apex usingretrospective gating with ECG tube current modulation. A total of 80 mLOmnipaque 350mgI/mL contrast media was administered at 5 mL/sec followedby a saline flush using a biphasic injection protocol. A tube voltage of90 kVp was used. The patient received the following medications prior to the Cardiac CT:100mg of po metoprolol, 0mg of IV metoprolol, and 0.8mg sublingualnitroglycerin. The average heart rate at the time of acquisition was 81 bpm (80 bpm to 82bpm) and regular. Image Reconstruction: Transaxial images were reconstructed at 0.75 mm slice thickness. Data wasreviewed interactively on an advanced workstation (fintonic) capable of 2and 3 dimensional displays in all conventional reconstruction formatsincluding multiplanar reformations, maximum intensity projections, curvedmultiplanar reformations, and volume rendered reconstructions. Selectedroutine images displaying relevant coronary anatomy and pathology weresaved and sent to PACS. Complications: None Technical Quality: Overall image quality is Excellent. Coronary artery opacification is Excellent and the images are free ofsignificant artifact. Total DLP (Dose-Length Product): 1831.63 mGy.cm . (25.6 mSv); CardiacPortion: 1026 mGycm (14.4 mSv) Please note: The reported value representsthe total of one or more individual components during the CT acquisitionon this date and at this time, and as such, the same value may appear inmore than one CT report depending on the interpreting/reportingphysicians. COMPARISON: None. FINDINGS: -CT Coronary Calcium Scoring- LMA= 0 LAD= 17.8 LCX= 0 RCA= 23.4 Total calcium score = 41.2 using the AJ-130 method. This score is in the87 percentile rank for age and gender, meaning that 13 % of patients ofthe same age and gender will have a higher score. The total volume scoreis 40.2. The calculated vascular age for this patient is 65 years. There is no identifiable calcification in the aortic wall. -Coronary CT Angiography- Coronary Arteries: The coronaries have normal origin and proximal course. The coronaryarterial system is left dominant. Note: Stenosis is reported as maximum percentage diameter stenosis.Stenosis grading is reported using the following scheme. Quantitative Stenosis Grading: CAD-RADS 0: 0% - No visible stenosis CAD-RADS 1: 1-24% - Minimal stenosis CAD-RADS 2: 25-49% - Mild stenosis CAD-RADS 3: 50-69% - Moderate stenosis CAD-RADS 4A: 70-99% - Severe stenosis in 1-2 vessels CAD-RADS 4B: Left main >50%, or 3 vessel >70% CAD-RADS 5: 100% - Occluded Left Main: CAD-RADS 0 The left main bifurcates into the left anteriordescending artery and left circumflex artery. LAD and Diagonals: CAD-RADS 2. Arises from the left main and gives off abifurcating diagonal branch and septal perforators. Follows the typicalcourse in the interventricular groove and wraps around the apex. There ismixed calcified/noncalcified at the take off of the diagonal branchcausing mild stenosis. LAD secondary to mixed calcified/noncalcifiedplaque. LCx and Obtuse Marginals: CAD-RADS 1 Arises from the left main and givesoff obtuse marginal. Follows the typical course in the atrioventriculargroove. There is calcium shortly after take off causing minimal stenosis. RCA: CAD-RADS 2 Arises from the right coronary cusp and gives off PDA andPL branches. There is mixed calcified/noncalcified in the proximal RCAcausing mild stenosis. Non Coronary Cardiac Findings: Aortic valve leaflet calcifications. Extra Cardiac Structures: Unremarkable. IMPRESSION: 1. Mild coronary calcification with an Agatston score = 41.2 using theAJ-130 method, which represents 87 percentile when matched for age, genderand ethnicity. Vascular age is 65 years. 2. Non-obstructive coronary artery disease with foci of mild stenosis inthe proximal RCA and mid LAD secondary to mixed calcified/noncalcifiedplaque. 3. CAD-RADS 2: Management recommendations: Consider preventative therapyand risk factor modification, particularly for patients withnon-obstructive plaque in multiple segments. No further cardiac testingrecommended prior to kidney transplantation. Can consider retesting withCCTA in 1 years or greater. 4. Aortic valve leaflet calcification noted. CRITICAL RESULT: No. COMMUNICATION: Per this written report. Dictated by Mandi Ritter on 03/02/2021 12:40 PM By electronically signing this report, I, the attending physician, attestthat I have personally reviewed the images/data for the aboveexamination(s) and agree with the final edited report. Signed by Kris Parham on 03/02/2021 3:40 PM Geovanna Sheppard MD [facility] [place]ED[place] Final Result documented in this encounter Visit Diagnoses Diagnosis End stage renal disease ([facility]) End stage renal disease documented in this encounter Administered Medications Inactive Administered Medications - up to 3 most recent administrations Medication Order MAR Action Action Date Dose Rate Site iohexol (OMNIPaque) 350 MG/ML injection 100 mL 100 mL, Intravenous, Once in imaging, 1 dose, Starting on Mon03/02/21 at 1155, Until Mon03/02/21 at 1215, Routine, Imaging Protocol Orders Given 03/02/2021 12:15 PM EDT 100 mL metoprolol tartrate (Lopressor) tablet 50 mg 50 mg, Oral, Once in imaging, Starting on Mon03/02/21 at 1024, Until Mon03/02/21 at 2223, Routine, Intraprocedure Given 03/02/2021 10:42 AM EDT 50 mg metoprolol tartrate (Lopressor) tablet 50 mg 50 mg, Oral, Once as needed, 1 dose, Starting on Mon03/02/21 at 1024, Until Mon03/02/21 at 1041, Routine, Intraprocedure, if first oral dose ineffective Given 03/02/2021 10:41 AM EDT 50 mg documented in this encounter Care Teams Spring Assembler Relationship Specialty Start Date End Date Edgar Fournier MD [address] [place] [address] PCP - General 12/25/20 Enrique Griffith MD [address] [place] [address] Referring Physician Nephrology 01/08/21 documented as of this encounter
--- OUTSIDE RECORDS SUMMARY | 2024-07-12 13:06 | XMS_ITS | Encounter Summary ---
Author Organization [facility] Address [address] [place] [address] Care Team Providers Care Engine Boss Name Role Phone Edgar Fournier MD Primary Care Provider [phone] Enrique Griffith MD Unavailable [phone] Reason for Visit * Consultation (Routine) - Closed Specialty Diagnoses / Procedures Referred By Declan hines Referred To Contact Transplant Diagnoses End stage renal disease (CMS/HCC) Procedures [id number] Petrona Sheppard MD [address] [address] Phone: tel: fax: [facility] [place] [id number] [address] Phone: tel: fax: Referral ID Status Reason Start Date Expiration Date V isits Requested Visits Authorized [id number] Closed Specialty Services Required 02/04/2021 08/03/2021 1 1 Encounter Details Date Type Department Care Team (Late st Contact Info) Description 03/02/2021 2:30 PM EDT Clinical Support [facility] [place] [id number] [address] [place] [address] End stage renal disease (CMS/HCC) Social History Tobacco Use Types Packs/Day [...] encounter Miscellaneous Notes * Progress Notes - Christa Shaw, RD - 03/02/2021 2:30 PM EDT Contraindications to Transplant There are no nutritional barriers for transplant listing, however weight loss recommended at initial clinic visit (20 pounds). Recommend surgeon consult to assess weight distribution. Transplant Clinic Nutrition Evaluation Evaluation Type: Listing assessment. Organ Group: Kidney HPI Aiden Stauffer is a 46 year old male with history of ESRD, seen in clinic for kidney transplant evaluation. Past Medical History: Diagnosis Date ??? Anemia ??? Conversions - Other Anemia ??? Conversions [...] Procedure Laterality Date ??? BACK SURGERY ??? LIVER TRANSPLANTATION 2017 ??? OTHER SURGICAL HISTORY N/A History Of Prior Surgery from [facility] ??? TREATMENT, LOWER LEG FRACTURE Social History: No pertinent information. Labs: Glucose-200, Potassium-5.0, BUN-28, Creatinine-5.70, eGFR-13, Phosphorus-4.8, Albumin-4.3. Hgb A1C-6.0 (01/28/2021) Current Outpatient Medications: Nutritionally pertinent outpatient medications reviewed (Cyclosporine, Calcium Acetate, Vitamin D, Humulin, CellCept, Zofran). Nutrition History Previous Visit with Dietitian? Yes Appetite: Good Nutrition-Related Symptoms: None Type of Dialysis: Hemodialysis Additional Information: Followed by renal dietitian for assistance with dialysis diet restrictions.Has actively been working on weight loss and has lost ~ 25 pounds. Additional weight loss of 25 pounds was recommended during initial clinic visit. Reports that diabetes is well managed. Hasn't been placed on any protein supplements. Anthropometric Measurements Height: 172.7 centimeters Current Weight: 113 kilograms [place] Body Weight: 70 kilograms % [place] Body Weight: 162% Adjusted Body Weight: 81 kilograms BMI: 37.78 Weight Evaluation: Obese-Class 2 (BMI 35-39.9) Estimated Needs Calories/ K-28 Calories Provided: 1591-5573 calories Calorie Needs Based On: Adjusted body weight Grams Protein/ K.0-1.2 Protein Provided: 81-97 grams Protein Needs Based On: Adjusted body weight Nutrition Diagnosis Impaired nutrient utilization related to compromised renal function as evidenced by depressed GFR, need for renal transplant. Status of Nutrition Diagnosis: New Overweight/obesity related to energy expenditure < energy intake as evidenced by BMI of 37.78 (class 2 obesity). Status of Nutrition Diagnosis: New Nutrition Interventions Education: pre-transplant education, brief review of post-transplant education. Nutrition education materials provided. Patient verbalized understanding. RD contact information provided for reference. Monitoring and Evaluation RD available for further consult as needed. Christa Shaw MS, REMEDIOS, RD, LD, CCTD Office # documented in this encounter Plan of Treatment Not on file documented as of this encounter Visit Diagnoses Diagnosis End stage renal disease (CMS/HCC) End stage renal disease documented in this encounter Care Teams Engine Boss Relationship Specialty Start Date End Date Edgar Fournier MD [address] [place] [address] PCP - General 12/25/20 Enrique Griffith MD [address] [place] [address] Referring Physician Nephrology 01/08/21 documented as of this encounter
--- OUTSIDE RECORDS SUMMARY | 2024-07-12 13:06 | XMS_ITS | Encounter Summary ---
Author Organization [facility] Address [address] [place] [address] Care Team Providers Care Casserole Preparer Name Role Phone Edgar Fournier MD Primary Care Provider [phone] Enrique Griffith MD Unavailable [phone] Encounter Details Date Type Department Care Team (Late st Contact Info) Description 02/23/2021 Telephone [facility] Radiology [address] [place] [address] Elisha Jessica, RN [facility] Social History [...] on filedocumented in this encounter Care Teams Casserole Preparer Relationship Specialty Start Date End Date Edgar Fournier MD [address] [place] [address] PCP - General 12/25/20 Enrique Griffith MD [address] [place] [address] Referring Physician Nephrology 01/08/21 documented as of this encounter
--- OUTSIDE RECORDS SUMMARY | 2024-07-12 13:06 | XMS_ITS | Encounter Summary ---
Author Organization [facility] Address [address] [place] [address] Care Team Providers Care Wood Fuel Pelletizer Name Role Phone Edgar Fournier MD Primary Care Provider [phone] Enrique Griffith MD Unavailable [phone] Reason for Visit * Imaging (Routine) - Closed Specialty Diagnoses / Procedures Referred By Declan hines Referred To Contact Radiology Diagnoses End stage renal disease (CMS/HCC) Procedures CT Abdomen Pelvis wo IV Contrast 18251 Geovanna Sheppard MD [address] [facility] [address] [place] [address] Phone: tel: fax: Referral ID Status Reason Start Date Expiration Date Visits Re quested Visits Authorized [id number] Closed 02/04/2021 08/03/2021 1 1 Encounter Details Date Type Department Care Team (Latest Contact Info) Description 03/02/2021 10:15 AM EDT - 03/02/2021 3:11 PM EDT Hospital Encounter [facility] Radiology [address] [place] [address] Discharge Disposition: Home or Self Care Social [...] Take every . ergocalciferol (ergocalciferol) 1.25 MG (87399 UT) capsule Take 1 capsule (50,000 Units) [...] Name Priority Date/Time Associated Diagnosis Comments CT ABDOMEN PELVIS WO IV CONTRAST Routine 03/02/2021 12:17 PM EDT End stage renal disease (CMS/HCC) documented in this encounter Results * CT Abdomen Pelvis wo IV Contrast (03/02/2021 12:17 PM EDT) Anatomical Region Laterality Modality Abdomen, Pelvis Computed Tomogra phy Impressions 03/02/2021 12:39 PM EDT Atrophic bilateral [place] kidneys. Postoperative changes from orthotopic liver transplant. 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 CRITICAL RESULT: ?? No. COMMUNICATION: Per this written report. Signed by Humble [place] on ??03/02/2021 12:39 PM Narrative 03/02/2021 12:39 PM EDT Exam/Procedure: CT ABDOMEN PELVIS WO IV CONTRAST ordered by GEOVANNA SHEPPARD, [id number] CLINICAL INDICATION: Kidney Transplant evaluation TECHNIQUE: Multiple axial CT images were obtained from lung bases through pubic symphysis without the administration of IV contrast. Reformatted images in the coronal and sagittal planes were generated from the axial data set to facilitate diagnostic accuracy. Total DLP (Dose-Length Product): 1832 mGy*cm. Please note: The reported value represents the total of one or more individual components during the CT acquisition on this date and at this time, and as such, the same value may appear in more than one CT report depending on the interpreting/reporting physicians. COMPARISON: Prior examination performed on September 06, 2017 FINDINGS: Lower Chest: No suspicious findings. Analysis of the abdominopelvic viscera is limited by the absence of intravenous contrast material. Solid Abdominal Organs: Postoperative changes from orthotopic liver transplant. Gallbladder has been surgically removed. The spleen is unremarkable. Atrophic bilateral [place] kidneys. No hydronephrosis. The adrenal glands are unremarkable. No evidence of pancreatic ductal dilatation. GI Tract/Mesentery/Peritoneum: The large and small bowel appear normal in caliber. No evidence of inflammatory change. No suspicious peritoneal/mesenteric findings.. Pelvic Viscera: No suspicious pelvic mass lesions. Lymph Nodes/Vasculature: Large varicosities are present within the splenic hilum and left retroperitoneum. No worrisome adenopathy. No significant vascular calcification within the external iliac vasculature. Free Fluid:None Musculoskeletal and Body Wall:Complex ventral abdominal wall hernia containing fat only. No aggressive osseous or body wall findings. Degenerative changes are noted at the L5-S1 level. Postoperative changes from prior L5 laminectomy. Procedure Note Humble [place] MD - 03/02/2021 Exam/Procedure: CT ABDOMEN PELVIS WO IV CONTRAST ordered by GEOVANNA [id number] CLINICAL INDICATION: Kidney Transplant evaluation TECHNIQUE: Multiple axial CT images were obtained from lung bases through pubicsymphysis without the administration of IV contrast. Reformatted images inthe coronal and sagittal planes were generated from the axial data set tofacilitate diagnostic accuracy. Total DLP (Dose-Length Product): 1832 mGy*cm. Please note: The reportedvalue represents the total of one or more individual components during theCT acquisition on this date and at this time, and as such, the same valuemay appear in more than one CT report depending on theinterpreting/reporting physicians. COMPARISON: Prior examination performed on September 06, 2017 FINDINGS: Lower Chest: No suspicious findings. Analysis of the abdominopelvic viscera is limited by the absence ofintravenous contrast material. Solid Abdominal Organs: Postoperative changes from orthotopic livertransplant. Gallbladder has been surgically removed. The spleen isunremarkable. Atrophic bilateral [place] kidneys. No hydronephrosis. Theadrenal glands are unremarkable. No evidence of pancreatic ductaldilatation. GI Tract/Mesentery/Peritoneum: The large and small bowel appear normal incaliber. No evidence of inflammatory change. No suspiciousperitoneal/mesenteric findings.. Pelvic Viscera: No suspicious pelvic mass lesions. Lymph Nodes/Vasculature: Large varicosities are present within the splenichilum and left retroperitoneum. No worrisome adenopathy. No significantvascular calcification within the external iliac vasculature. Free Fluid:None Musculoskeletal and Body Wall:Complex ventral abdominal wall herniacontaining fat only. No aggressive osseous or body wall findings.Degenerative changes are noted at the L5-S1 level. Postoperative changesfrom prior L5 laminectomy. IMPRESSION: Atrophic bilateral [place] kidneys. Postoperative changes from orthotopic liver transplant. 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 CRITICAL RESULT: No. COMMUNICATION: Per this written report. Signed by Humble [place] on 03/02/2021 12:39 PM Geovanna Sheppard MD IMG CT PROCEDURES Final Result documented in this encounter Visit Diagnoses Not on filedocumented in this encounter Care Teams Wood Fuel Pelletizer Relationship Specialty Start Date End Date Edgar Fournier MD [address] [place] [address] PCP - General 12/25/20 Enrique Griffith MD [address] [place] [address] Referring Physician Nephrology 01/08/21 documented as of this encounter
--- OUTSIDE RECORDS SUMMARY | 2024-07-12 13:06 | XMS_ITS | Encounter Summary ---
Author Organization [facility] Address [address] [place] [address] Care Team Providers Care Claim Analyst Name Role Phone Edgar Fournier MD Primary Care Provider [phone] Enrique Griffith MD Unavailable [phone] Encounter Details Date Type Department Care Team (Late st Contact Info) Description 02/04/2021 Abstract [facility] [address] [facility] [address] [place] [address] Physician Reddy MD [address] [place] [address] Social History Tobacco Use Types Packs/Day [...] on filedocumented in this encounter Care Teams Claim Analyst Relationship Specialty Start Date End Date Edgar Fournier MD [facility] [place] [address] PCP - General 12/25/20 Enrique Griffith MD [address] [place] [address] Referring Physician Nephrology 01/08/21 documented as of this encounter
--- OUTSIDE RECORDS SUMMARY | 2024-07-12 13:06 | XMS_ITS | Encounter Summary ---
Author Organization [facility] Address [address] [id number] Care Team Providers Care Adon Name Role Phone Edgar Fournier MD Primary Care Provider [phone] Enrique Griffith MD Unavailable [phone] Encounter Details Date Type Department Care Team (Late st Contact Info) Description 03/12/2021 Telephone [facility] [address] [facility] [address] [place] [phone] Zion Virgen, RN HOSPITAL KIDNEY [id number] [address] [phone] Social History Tobacco Use Types Packs/Day Years [...] Telephone Encounter - Zion Virgen RN - 03/12/2021 12:18 PM EDT Discussed progress with patient, have acquitted cards note from informed patient that we would review this in committee to see if further evaluation is required. Patient verbalized understanding requested that note be faxed to patients primary physician Dr. Fournier fax number [phone], this has been done. Patient denies further needs at this time. documented in this encounter Plan of Treatment Not on file documented as of this encounter Visit Diagnoses Not on filedocumented in this encounter Care Teams Adon Relationship Specialty Start Date End Date Edgar Fournier MD [address] [place] [address] PCP - General 12/25/20 Enrique Griffith MD [address] [place] [address] Referring Physician Nephrology 01/08/21 documented as of this encounter
--- OUTSIDE RECORDS SUMMARY | 2024-07-12 13:06 | XMS_ITS | Encounter Summary ---
Author Organization [facility] Address [address] [id number] Care Team Providers Care Citrix Architect Name Role Phone Edgar Fournier MD Primary Care Provider [phone] Enrique Griffith MD Unavailable [phone] Encounter Details Date Type Department Care Team (Late st Contact Info) Description 03/05/2021 Telephone [facility] [address] [facility] [address] [place] [phone] Zion Virgen, RN HOSPITAL KIDNEY [id number] [address] [phone] Social History Tobacco Use Types Packs/Day Years [...] Telephone Encounter - Zion Virgen RN - 03/05/2021 1:05 PM EDT Nora BATES at [facility] notified of abnormal lab values documented in this encounter Plan of Treatment Not on file documented as of this encounter Visit Diagnoses Not on filedocumented in this encounter Care Teams Citrix Architect Relationship Specialty Start Date End Date Edgar Fournier MD [address] [place] [address] PCP - General 12/25/20 Enrique Griffith MD [address] [place] [address] Referring Physician Nephrology 01/08/21 documented as of this encounter
--- OUTSIDE RECORDS SUMMARY | 2024-07-12 13:06 | XMS_ITS | Encounter Summary ---
Author Organization [facility] Address [address] [place] [address] Care Team Providers Care Rhic Systems Safety Engineer Name Role Phone Edgar Fournier MD Primary Care Provider [phone] Enrique Griffith MD Unavailable [phone] Encounter Details Date Type Department Care Team (Late st Contact Info) Description 02/04/2021 Telephone [facility] [address] [place] [address] Nora Jason, RN [facility] Social History Tobacco Use Types Packs/Day Years [...] encounter Miscellaneous Notes * Telephone Encounter - Nora Jason RN - 02/04/2021 11:46 AM EDT Pt had a colonoscopy while in the ICU in 2017 to locate the source of bleeding. No biopsies were taken, no lesions, etc. Transplant asked when pt would be due a colonoscopy , since there is no path report and no statement on colonscopy report as to when he should have one. Since Dr Gillespie was the provider at the time, transplant is asking for his opinion. documented in this encounter Plan of Treatment Not on file documented as of this encounter Visit Diagnoses Not on filedocumented in this encounter Care Teams Rhic Systems Safety Engineer Relationship Specialty Start Date End Date Edgar Fournier MD [address] [place] [address] PCP - General 12/25/20 Enrique Griffith MD [address] [place] [phone] Referring Physician Nephrology 01/08/21 documented as of this encounter
--- OUTSIDE RECORDS SUMMARY | 2024-07-12 13:06 | XMS_ITS | Encounter Summary ---
Author Organization [facility] Address [address] [place] [address] Care Team Providers Care Torch Operator Name Role Phone Edgar Fournier MD Primary Care Provider [phone] Enrique Griffith MD Unavailable [phone] Encounter Details Date Type Department Care Team (Latest Contact Info) Description 05/14/2021 Travel Social History Tobacco Use Types Packs/Day [...] on filedocumented in this encounter Care Teams Torch Operator Relationship Specialty Start Date End Date Edgar Fournier MD [facility] [place] [address] PCP - General 12/25/20 Enrique [place] MD [address] [place] [address] Referring Physician Nephrology 01/08/21 documented as of this encounter
--- OUTSIDE RECORDS SUMMARY | 2024-07-12 13:06 | XMS_ITS | Encounter Summary ---
Author Organization [facility] Address [address] [id number] Care Team Providers Care Parking Enforcement Specialist Name Role Phone Edgar Fournier MD Primary Care Provider [phone] Enrique [place] MD Unavailable [phone] Reason for Visit * Reason Comments Appointment Calling to confirm eval appts Encounter Details Date Type Department Care Team (Late st Contact Info) Description 02/05/2021 Telephone [facility] [address] [facility] [address] [place] [phone] Janeth Navarrete [facility] [address] [phone] Appointment (Calling to confirm 03/02/21 eval appts) Social History Tobacco Use Types Packs/Day Years [...] * Telephone Encounter - Janeth Navarrete - 02/05/2021 10:07 AM EDT Eval scheduled for 03/02/21. Called and spoke with patient. Gave him all eval appointment details and he verbalized understanding of all. Mailed 03/02/21 eval appointment schedule with maps, instructions, caregiver responsibilities sheet, and financial screen worksheet to patient. documented in this encounter Plan of Treatment Not on file documented as of this encounter Visit Diagnoses Not on filedocumented in this encounter Care Teams Parking Enforcement Specialist Relationship Specialty Start Date End Date Edgar Fournier MD [address] [place] [address] PCP - General 12/25/20 Enrique [place] MD [address] [place] [address] Referring Physician Nephrology 01/08/21 documented as of this encounter
--- OUTSIDE RECORDS SUMMARY | 2024-07-12 13:06 | XMS_ITS | Encounter Summary ---
Author Organization [facility] Address [address] [id number] Care Team Providers Care Major Account Representative Name Role Phone Edgar Fournier MD Primary Care Provider [phone] Enrique [place] MD Unavailable [phone] Encounter Details Date Type Department Care Team (Late st Contact Info) Description 03/03/2021 Telephone [facility] [address] [facility] [address] [place] [phone] Zion Virgen, RN HOSPITAL KIDNEY [id number] [address] [phone] Social History Tobacco Use Types Packs/Day Years [...] Telephone Encounter - Zion Virgen RN - 03/03/2021 2:46 PM EDT Called patient to inform him of committee discussion, patient states that he actually has a note from a transcript clerk clearing him for transplant. Asked patient to have note sent to us for review, butinformed patient that the Drs may still want patient to see transcript clerk for clearance. Patient verbalized understanding, denied further issues. documented in this encounter Plan of Treatment Not on file documented as of this encounter Visit Diagnoses Not on filedocumented in this encounter Care Teams Major Account Representative Relationship Specialty Start Date End Date Edgar Fournier MD [address] [place] [address] PCP - General 12/25/20 Enrique [place] MD [address] [place] [address] Referring Physician Nephrology 01/08/21 documented as of this encounter
--- OUTSIDE RECORDS SUMMARY | 2024-07-12 13:06 | XMS_ITS | Encounter Summary ---
Author Organization [facility] Address [address] [place] [address] Care Team Providers Care Investment Director Name Role Phone Edgar Fournier MD Primary Care Provider [phone] Enrique Griffith MD Unavailable [phone] Reason for Visit * Auth/Cert Specialty Diagnoses / Procedures Referred By Declan hines Referred To Contact Diagnoses Pre-transplant evaluation for end stage renal disease Pre-transplant evaluation for end stage renal disease [Z01.818] Procedures Right heart cath Georgiana CummingsField Operations Farm ManagerMD [address] [place], [place] [id number] Phone: tel: Cardiac Deboning Team Leader [address] [place] [address] Phone: tel: Referral ID Status Reason Start Date Expiration Date Visits Re quested Visits Authorized Encounter Details Date Type Department Care Team (Late st Contact Info) Description 05/14/2021 7:30 AM EDT - 05/14/2021 8:00 AM EDT Surgery Cardiac Deboning Team Leader [address] [place] [address] Dez Pressley MD [address] [place] [address] Right heart cath Surgery Details Date/Time Status Location OR Service Patient Class Case Class Case Type Trauma Case? 05/14/2021 7:30 AM Posted PAWEL ORACLE FUSION CONSULTANT ORACLE FUSION CONSULTANT [facility] Outpatient Surgery E-Elect leigh Panel 1 Procedure LRB Anes Op Region Wound Class Comments Right heart cath N/A Surgeon Surgeon Role Service Panel Mayi Marie MD Fellow Cardiovascular 1 Stan Mora MD Fellow Cardiovascular 1 Dez Pressley MD Primary Cardiovascular 1 documented in this encounter Social History [...] Sign Reading Time Taken Comments Blood Pressure 224/113 05/14/2021 7:04 AM EDT Pulse 93 05/14/2021 7:45 AM EDT Temperature 36.8 ??C (98.3 ??F) 05/14/2021 7:04 AM ED T Respiratory Rate 35 05/14/2021 7:45 AM EDT Oxygen Saturation 98% 05/14/2021 7:59 AM EDT Inhaled Oxygen Concentration - - Weight 112 kg (246 lb 14.6 oz) 05/14/2021 7:04 A M EDT Height 172.7 cm (5' 8 ) 05/14/2021 7:04 AM EDT Body Mass Index 37.54 05/14/2021 7:04 AM EDT documented in this encounter Discharge Instructions * Attachments The following attachments cannot be sent through Care Everywhere. * Cardiac Catheterization, Bleeding or Hematoma After (Chinese) * Right Heart Catheterization - Transplant ([place]) (Chinese) documented in this encounter Medications at Time [...] Take every . ergocalciferol (ergocalciferol) 1.25 MG (10170 UT) capsule Take 1 capsule (50,000 Units) [...] 03/31/2020 11/08/2021 documented as of this encounter Miscellaneous Notes * Nursing Note - Eliz Trujillo - 05/14/2021 9:56 AM EDT Patient seen by attending md, patient cleared for discharge to home, * Pre-Procedure Note - Stan Mora MD - 05/14/2021 7:33 AM EDT Physician Pre-procedural Assessment And Sedation Plan Indication for procedure: The encounter diagnosis was Pre-transplant evaluation for end stage renaldisease. Relevant review of systems: NA Relevant Labs: Lab Results Component Value Date CREATININE 5.70 (H) 03/02/2021 EGFR 11 (L) 03/02/2021 EGFR 13 (L) 03/02/2021 PROT 6.8 08/21/2017 INR 1.0 03/02/2021 Planned Sedation/Anesthesia: Moderate Airway assessment: normal Directed physical examination: Hypertensive, RRR Mallampati: II (hard and soft palate, upper portion of tonsils anduvula visible) ASA Score: ASA 2 - Patient with mild systemic disease with no functional limitations Benefits, risks and alternatives of procedure and planned sedation have been discussed with the patient and/or their administrative representative. All questions answered and they agree to proceed. * H&P - Stan Mora MD - 05/14/2021 7:27 AM EDT Images from the original note were not included. CARDIOLOGY HISTORY & PHYSICAL SUBJECTIVE History Of Present Illness Aiden Stauffer is a 46 y.o. male with a past medical history of ESRD, s/p OLT, HTN, DM2 who initially presented to the [facility] on 05/14 for scheduled RHC. Patient reports that he has been doing well. His BP is usually elevated in the morning before he takes his blood pressure medications, sildenafil and doxasin. He reports that he has to occasionally stop his dialysis sessions early due to hypotension. He otherwise denies chest pain, excessive SOA with exertion. Review of Systems 14 Review of Systems were negative except as stated in the HPI Past Medical History Past Medical History: Diagnosis [...] (CMS/HCC) ??? Neuropathy ??? Obesity ??? Retinopathy Surgical History Past Surgical History: Procedure Laterality Date ??? BACK SURGERY ??? CHOLECYSTECTOMY ??? LIVER TRANSPLANTATION 2017 ??? OTHER SURGICAL HISTORY N/A History Of Prior Surgery from [facility] ??? TREATMENT, LOWER LEG FRACTURE Family History Family History Problem Relation Name Age of Onset ??? Alcohol abuse Sister ??? Alcohol abuse Father ??? Alcohol abuse Father's Brother ??? Cancer Father ??? Cirrhosis Sister ??? Diabetes Sister ??? Diabetes Mother Social History Social History Tobacco Use ??? Smoking status: Never Smoker ??? Smokeless tobacco: Never Used Substance Use Topics ??? Alcohol use: No Comment: Alcoholic Drinks/day: Never Drank Alcohol ??? Drug use: Yes Comment: Drug use: Drug Use Allergies Tacrolimus and Codeine Home Medications Reviewed in [facility] OBJECTIVE Physical Exam Blood pressure (!) 224/113, pulse 85, temperature 36.8 ??C (98.3 ??F), temperature source Oral, resp. rate 18, height 1.727 m (5' 8 ), weight 112 kg (246 lb 14.6 oz), SpO2 99 %. General: Well appearing, NAD HEENT: NCAT, extraocular movement appears to be intact Card: Tachycardic, systolic murmur Pulm: CTAB, normal WOB Abd: Soft, nontender, nondistended Skin: No clear rashes or lesions Neuro: Moves all 4's, A&Ox4 Psych: Appropriate mood Results / Imaging Labs and imaging were reviewed in [facility]. ASSESSMENT/PLAN Principal Problem: Pre-transplant evaluation for kidney transplant Aiden Addison Stauffer is a 46 y.o. male with a past medical history of ESRD, s/p OLT, HTN, DM2 who initially presented to the [facility] on 05/14 for scheduled RHC. Scheduled RHC prior to renal transplant workup: Past history for WHO Group II disease. Known reduced EF with cath <2 years ago without significant disease. - Proceed with RHC Stan Mora MD Fellow, PGY-5, Department of Cardiovascular Medicine Pager: [phone] Cosigned by Dez Pressley MD at 05/14/2021 1:43 PM EDT Associated attestation - Dez Pressley MD - 05/14/2021 1:43 PM EDT I saw and evaluated the patient with the resident/fellow. I discussed the case with the resident/fellow and agree with the findings and plan as documented. documented in this encounter Plan of Treatment Not on file documented as of this encounter Procedures Procedure Name Priority Date/Time Associated Diagnosis Comments POCT CO-OXIMETRY UNSOLICITED RESULTS Routine 05/14/2021 8:24 AM EDT RIGHT HEART CATHETERIZATION Routine 05/14/2021 8:21 AM EDT Pre-transplant evaluation for end stage renal disease POCT CO-OXIMETRY UNSOLICITED RESULTS Routine 05/14/2021 8:18 AM EDT CBC W/O DIFFERENTIAL STAT 05/14/2021 8:00 AM EDT BASIC METABOLIC PANEL, PLASMA STAT 05/14/2021 8:00 AM EDT documented in this encounter Results * (ABNORMAL) POCT co-oximetry (05/14/2021 8:24 AM EDT) POCT Oxyhemoglobin 77(L) 94 - 97 % 2022 3:32 PM EST [facility] Total Hemoglobin, Arterial, Whole Blood 14.4 13.7 - 17.5 g/dL 10/21/2022 3:32 PM EST [facility] Master Carpenter ID Wilmer Olivier 10/21/2022 3:32 PM EST [facility] Device ID [id number] 10/21/2022 3:32 PM EST [facility] Comment:Testing performed by Deboning Team Leader staff. All results are immediately given to the physician. Results have not been confirmed by the Clinical Laboratory. It is the responsibility of the physician to confirm results. POCT Sample Site WHOLE BLOOD 10/21/2022 3:32 PM EST [facility] Arterial blood specimen / Unknown 05/14/2021 8:24 AM EDT 05/14/2021 8:20 AM EDT us Dez Pressley MD LAB POINT OF CARE TE ST DOCKED DEVICE UNSOLICITED RESULTS Final Result Performing Organization Address City/State/[facility] Co de Phone Number [facility] [address] [place] [address] * RIGHT HEART CATHETERIZATION (05/14/2021 8:21 AM EDT) Anatomical Region Laterality Modality Other Narrative 05/17/2021 7:19 AM EDT Conclusion: 1. Elevated left and right sided intracardiac filling pressures 2. Normal cardiac output and index as estimated by the Abelino equation 3. WHO group II pulmonary hypertension without evidence of pre-capillary pulmonary hypertension (normal PVR) Recommendations: 1. The above findings will be communicated to the referring physician. 2. Continue with aggressive management of volume status. Procedure Details After informed consent was obtained the patient was brought to the cardiac catheterization laboratory. A time out was conducted. The right neck was prepared and draped in the usual sterile fashion. Using ultrasound guidance, the tissue overlying the right internal jugular vein was anesthetized with 1% lidocaine. Using modified Seldinger technique and an 18-gauge Cook needle under ultrasound guidance, the right internal jugular vein was punctured, and a 0.035 J-tipped guidewire advanced into the central venous circulation. An 8F introducer was placed. Right heart catheterization was then carried out using a 7.5F VIP [place]-Neeru catheter.. Pressures were recorded as the catheter was advanced from the right atrium to the pulmonary artery, including the pulmonary capillary wedge pressure. A small blood sample was obtained from the pulmonary artery for mixed venous oxygen saturation to calculate assumed Abelino cardiac output and index. The introducer was then removed and hemostasis was achieved with 5 minutes of light manual pressure. The catheterization site was dressed with a sterile dressing, and the patient was transferred back to the microbiology lab manager holding area in good condition. Petrona Sheppard MD CV CARDIAC CATH PROCEDURES Final Result * (ABNORMAL) POCT co-oximetry (05/14/2021 8:18 AM EDT) [facility] POCT Oxyhemoglobin 83(L) 94 - 97 % 2022 3:32 PM EST [facility] Total Hemoglobin, Arterial, Whole Blood 13.4(L) 13.7 - 17.5 g/dL 10/21/2022 3:32 PM EST [facility] Master Carpenter ID Wilmer Olivier 10/21/2022 3:32 PM EST [facility] Device ID [id number] 10/21/2022 3:32 PM EST [facility] Comment:Testing performed by Deboning Team Leader staff. All results are immediately given to the physician. Results have not been confirmed by the Clinical Laboratory. It is the responsibility of the physician to confirm results. POCT Sample Site WHOLE BLOOD 10/21/2022 3:32 PM EST [facility] Arterial blood specimen / Unknown 05/14/2021 8:18 AM EDT 05/14/2021 8:15 AM EDT Dez Pressley MD LAB POINT OF CARE TE ST DOCKED DEVICE UNSOLICITED RESULTS Final Result [facility] [address] [place] [id number] * (ABNORMAL) Basic metabolic panel (05/14/2021 8:00 AM EDT) Pathologist [facility] Glucose, Plasma 135(H) 74 - 99 mg/dL 05/14/2021 8:39 AM EDT [facility] BUN, Plasma 56(H) 7 - 21 mg/dL 05/14/2021 8:39 AM EDT [facility] Creatinine, Plasma 8.95(H) 0.80 - 1.30 mg/dL 05/14/2021 8:39 AM EDT [facility] BUN/Creatinine Ratio 6 05/14/2021 8:39 AM EDT [facility] Sodium, Plasma 138 136 - 145 mmol/L 05/14/2021 8:39 AM EDT [facility] Potassium, Plasma 6.2(H) 3.7 - 4.8 mmol/L 05/14/2021 8:39 AM EDT [facility] Chloride, Plasma 96(L) 97 - 107 mmol/L 05/14/2021 8:39 AM EDT [facility] CO2, Plasma 25 22 - 29 mmol/L 05/14/2021 8:39 AM EDT [facility] Anion Gap 17(H) 6 - 16 mmol/L 05/14/2021 8:39 AM EDT [facility] Total Calcium, Plasma 8.9 8.9 - 10.2 mg/dL 05/14/2021 8:39 AM EDT [facility] eGFR 6(L) >60 mL/min/1.7 3m*2 05/14/2021 8:39 AM EDT [facility] Comment:eGFR [...] eGFR, if AFR/AM 8(L) >60 mL/min/1.7 3m*2 05/14/2021 8:39 AM [facility] Comment:eGFR = estimated GFR [...] blood specimen / Unknown Venipuncture / Unknown 05/14/2021 8:00 AM EDT 05/14/2021 8:11 AM EDT us Dez Pressley MD LAB BLOOD ORDERABLES Final Res ult [facility] [address] [place] [id number] * (ABNORMAL) Hemogram (CBC) (05/14/2021 8:00 AM EDT) WBC Count 4.23 3.70 - 10.30 10*3/uL LAB HEMATOLOGY METHOD 05/14/2021 8:18 AM EDT [facility] RBC Count 3.63(L) 4.60 - 6.10 10*6/uL LAB HEMATOLOGY METHOD 05/14/2021 8:18 AM EDT [facility] HGB 12.4(L) 13.7 - 17.5 g/dL LAB HEMATOLOGY METHOD 05/14/2021 8:18 AM EDT [facility] HCT 37.8(L) 40.0 - 51.0 % LAB HEMATOLOGY METHOD 05/14/2021 8:18 AM EDT [facility] Platelet Count 169 155 - 369 10*3/uL LAB HEMATOLOGY METHOD 05/14/2021 8:18 AM EDT [facility] MCV 104(H) 79 - 98 fL LAB HEMATOLOGY METHOD 05/14/2021 8:18 AM EDT [facility] MCH 34.2(H) 26.0 - 32.0 pg LAB HEMATOLOGY METHOD 05/14/2021 8:18 AM EDT [facility] MCHC 32.8 30.7 - 35.5 g/dL LAB HEMATOLOGY METHOD 05/14/2021 8:18 AM EDT [facility] RDW 14.1 11.5 - 14.5 % LAB HEMATOLOGY METHOD 05/14/2021 8:18 AM EDT [facility] MPV 9.5 8.8 - 12.5 fL LAB HEMATOLOGY METHOD 05/14/2021 8:18 AM EDT [facility] nRBC 0.0 <=0.0 per 100 WBCs LAB HEMATOLOGY METHOD 05/14/2021 8:18 AM EDT [facility] Blood Venous blood specimen / Unknown Venipuncture / Unknown 05/14/2021 8:00 AM EDT 05/14/2021 8:11 AM EDT us Dez Pressley MD LAB BLOOD ORDERABLES Final Res ult [facility] [address] [place] [address] documented in this encounter Visit Diagnoses Diagnosis Pre-transplant evaluation for kidney transplant- Primary Pre-transplant evaluation for end stage renal disease Other specified pre-operative examination WHO group 2 pulmonary arterial hypertension (CMS/HCC) Pre-transplant evaluation for end stage renal disease Other specified pre-operative examination documented in this encounter Admitting Diagnoses Diagnosis Pre-transplant evaluation for kidney transplant documented in this encounter Administered Medications Inactive Administered Medications - up to 3 most recent administrations Medication Order MAR Action Action Date Dose Rate Site acetaminophen (Tylenol) tablet 650 mg 650 mg, Oral, Every 4 hours PRN, Starting on Mon05/14/21 at 0842, Until 05/15/21 at 0401, Routine, Recovery(Phase II-Outpatient)/On Unit(Inpatient), mild pain, fever fentaNYL (Sublimaze) injection As needed, Starting on Mon05/14/21 at 0802, Until Mon05/14/21 at 0826, Routine, Intraprocedure Given 05/14/2021 8:05 AM EDT 50 mcg Given 05/14/2021 8:02 AM EDT 50 mcg lidocaine (Xylocaine) 1 % injection As needed, Starting on Mon05/14/21 at 0811, Until Mon05/14/21 at 0826, Routine, Intraprocedure Given 05/14/2021 8:11 AM EDT 5 mL Right Neck midazolam (Versed) injection As needed, Starting on Mon05/14/21 at 0802, Until Mon05/14/21 at 0826, Routine, Intraprocedure Given 05/14/2021 8:05 AM EDT 1 mg Given 05/14/2021 8:02 AM EDT 1 mg sodium chloride 0.9 % flush 10 mL 10 mL, Intravenous, Every 8 hours PRN, Starting on Mon05/14/21 at 0639, Until 05/15/21 at 0401, Routine, Holding - Preprocedure, line care documented in this encounter Active and Recently Administered Medications Times are shown in EDT. PRN Medication Order 05/13/2021 05/14/2021 05/15/2021 acetaminophen (Tylenol) tablet 650 mg 650 mg, Oral, Every 4 hours PRN, Starting on Mon05/14/21 at 0842, Until 05/15/21 at 0401, Routine, Recovery(Phase II-Outpatient)/On Unit(Inpatient), mild pain, fever fentaNYL (Sublimaze) injection (CANCELED) As needed, Starting on Mon05/14/21 at 0802, Until Mon05/14/21 at 0826, Routine, Intraprocedure 0802 (Given - Provider: Lew Olivier)0805 (Given - Provider: Wilmer Olivier) lidocaine (Xylocaine) 1 % injection (CANCELED) As needed, Starting on Mon05/14/21 at 0811, Until Mon05/14/21 at 0826, Routine, Intraprocedure 0811 (Given - Provider: Stan Mroa MD) midazolam (Versed) injection (CANCELED) As needed, Starting on Mon05/14/21 at 0802, Until Mon05/14/21 at 0826, Routine, Intraprocedure 0802 (Given - Provider: Lew Olivier)0805 (Given - Provider: Wilmer Olivier) sodium chloride 0.9 % flush 10 mL(Linked Group 1) 10 mL, Intravenous, Every 8 hours PRN, Starting on Mon05/14/21 at 0639, Until 05/15/21 at 0401, Routine, Holding - Preprocedure, line care Linked Groups Order Group 1: Insert peripheral IV (CANCELED) Once, On Mon05/14/21 at 0640, For 1 occurrence, If a device procedure must have two IV lines with one in the left., Holding - Preprocedure And Saline lock IV (CANCELED) Once, On Mon05/14/21 at 0640, For 1 occurrence, Holding - Preprocedure And sodium chloride 0.9 % flush 10 mLJump to med 10 mL, Intravenous, Every 8 hours PRN, Starting on Mon05/14/21 at 0639, Until 05/15/21 at 0401, Routine, Holding - Preprocedure, line care documented in this encounter Care Teams Investment Director Relationship Specialty Start Date End Date Edgar Fournier MD [address] [place], [place] [phone] PCP - General 12/25/20 Enrique Griffith MD [address] [place] [phone] Referring Physician Nephrology 01/08/21 documented as of this encounter
--- OUTSIDE RECORDS SUMMARY | 2024-07-12 13:06 | XMS_ITS | Encounter Summary ---
Author Organization [facility] Address [address] [place] [address] Care Team Providers Care Manager Research And Development Name Role Phone Edgar Fournier MD Primary Care Provider [phone] Enrique Griffith MD Unavailable [phone] Encounter Details Date Type Department Care Team (Late st Contact Info) Description 03/09/2021 Telephone [facility]iology [address] [place] [address] Elisha Jessica, RN [facility] RADIOLOGY Social History [...] filedocumented in this encounter Care Teams Manager Research And Development Relationship Specialty Start Date End Date Edgar Fournier MD [address] [place] [address] PCP - General 12/25/20 Enrique Griffith MD [address] [place] [address] Referring Physician Nephrology 01/08/21 documented as of this encounter
--- OUTSIDE RECORDS SUMMARY | 2024-07-12 13:06 | XMS_ITS | Encounter Summary ---
Author Organization [facility] Address [address] [place] [address] Care Team Providers Care Real Time Analyst Name Role Phone Edgar Fournier MD Primary Care Provider [phone] Enrique Griffith MD Unavailable [phone] Reason for Visit * Consultation (Routine) - Closed Specialty Diagnoses / Procedures Referred By Declan hines Referred To Contact Transplant Diagnoses End stage renal disease (CMS/HCC) Procedures [address] Petrona Sheppard MD [address] [address] Phone: tel: fax: [facility] [place] [address] [address] Phone: tel: fax: Referral ID Status Reason Start Date Expiration Date V isits Requested Visits Authorized [id number] Closed Specialty Services Required 02/04/2021 08/03/2021 1 1 Encounter Details Date Type Department Care Team (Late st Contact Info) Description 03/02/2021 2:00 PM EDT Office Visit [facility] [place] [address] [address] Miladys Duran, PharmD [address] [place] [phone] End stage renal disease (CMS/HCC) Social History [...] encounter Miscellaneous Notes * Progress Notes - Miladys Duran PharmD - 03/02/2021 2:00 PM EDT Images from the original note were not included. PRE-TRANSPLANT PHARMACY EVALUATION Patient name: Aiden Stauffer : 1975 AGE: 46 y.o. Type of transplant: kidney Allergies: Allergies Allergen Reactions ??? Codeine Hives ??? Tacrolimus Other Anxious feeling and muscle jerking. TOLERATED ENVARSUS BETTER THAN PROGRAF. Pertinent allergies/medication intolerances related to transplant medications: Prograf / Envarsus Current Medications: Current Outpatient Medications: ??? ALPRAZolam (Xanax) 0.5 [...] , Rfl: ??? ergocalciferol (ergocalciferol) 1.25 MG (51303 UT) capsule, Take 50,000 Units by mouth [...] times a day., Disp: , Rfl: ??? pantoprazole (ProtoNix) 40 MG EC tablet, Take 40 mg by mouth 2 (two) times a day. , Disp: , Rfl: ??? ondansetron (Zofran) 4 MG tablet, Take 1 tablet by mouth every 6 (six) hours if needed., Disp: , Rfl: No current facility-administered medications for this visit. Facility-Administered Medications Ordered in Other Visits: ??? metoprolol tartrate (Lopressor) 5 MG/5ML injection 5 mg, 5 mg, Intravenous, q5 min PRN, Mandi Ritter MD ??? metoprolol tartrate (Lopressor) tablet 50 mg, 50 mg, Oral, Once in imaging, Mandi Ritter MD, 50 mg at 03/02/21 1042 ??? nitroglycerin (Nitrostat) SL tablet 0.8 mg, 0.8 mg, Sublingual, q5 min PRN, Mandi Ritter MD Medication reconciliation performed during transplant evaluation: yes Medication education provided: Typical post-transplant immunosuppressive and anti-infective prophylaxis medications were reviewed briefly with the patient. Medication indications, anticipated duration of medication therapy, and common side effects were discussed. A sample post-transplant medicationregimen sheet was provided and reviewed with the patient. Patient was educated on the importance ofmedication adherence for graft survival post-transplant. Patient was given the opportunity to ask questions, all of which were addressed. Benzodiazepine/opiate use prior to transplant: No Anticoagulation/antiplatelet use prior to transplant: yes, aspirin 81 mg daily Adherence concerns identified: No Medication issues/concerns to be addressed prior to listing: - Patient reports intolerance to Prograf (muscles jerking and anxious feeling) but tolerated Envarsus better. However, he is currently on cyclosporine. Post- transplant immunosuppression plan needs robert discussed prior to listing. -Prescription fills show up for valproic acid and carbamazepine, but patient denied taking these medications. SW to follow-up on the phone. Contraindications to transplant: Aside from the conflicting information regarding the valproic acidand carbamazepine, there are no identified pharmacologic contraindications to transplant. Miladys Duran PharmD Transplant Clinical Pharmacist documented in this encounter Plan of Treatment Not on file documented as of this encounter Visit Diagnoses Diagnosis End stage renal disease ([facility]) End stage renal disease documented in this encounter Care Teams Real Time Analyst Relationship Specialty Start Date End Date Edgar Fournier MD [address] [place] [phone] PCP - General 12/25/20 Enrique Griffith MD [address] [place] [phone] Referring Physician Nephrology 01/08/21 documented as of this encounter
--- OUTSIDE RECORDS SUMMARY | 2024-07-12 13:06 | XMS_ITS | Encounter Summary ---
Author Organization [facility] Address [address] [place] [address] Care Team Providers Care Deck Officer Name Role Phone Edgar Fournier MD Primary Care Provider [phone] Enrique Griffith MD Unavailable [phone] Reason for Visit * Consultation (Routine) - Closed Specialty Diagnoses / Procedures Referred By Declan hines Referred To Contact Transplant Diagnoses End stage renal disease (CMS/HCC) Procedures 18223 Petrona Sheppard MD [address] [address] Phone: tel: fax: [facility] [address] [address] Phone: tel: fax: Referral ID Status Reason Start Date Expiration Date V isits Requested Visits Authorized [id number] Closed Specialty Services Required 02/04/2021 08/03/2021 1 1 Encounter Details Date Type Department Care Team (Late st Contact Info) Description 03/02/2021 1:00 PM EDT Social Work [facility] [address] [address] Jocelyn Conway [address] [address] End stage renal disease (CMS/HCC) Social History [...] encounter Miscellaneous Notes * Progress Notes - Jocelyn Conway, [employer] - 03/02/2021 1:00 PM EDT Identifying Information Name: Leoncio Stauffer : 1975 Assessment date: 03/02/2021 Transplant type: Kidney Transplant Referral - 01/08/2021 People present at assessment: Pt and mother Leoncio Stauffer is a 46 y.o. male with a diagnosis of Cirrhosis: Fatty Liver (Kim). He is beingevaluated for a kidney transplant. Primary language: Bulgarian Quaker/spirituality: Faith Do you have any tenriism, ethical or personal objections to accepting blood products, surgery and/or transplant? No Citizenship Where were you born[place] Do you have any outstanding citizenship concerns?No Family Background and Supportive Relationships Parental information: Biological Sibling information: Biological Children: Biological Marital/relationship status: stable monogamous marriage Kimberly Stauffer--mother. Pt lives with his , Kym Stauffer, and their son, Santy Stauffer (21). Pt mother lives in [place], [place]. Pt has two other adult sons, Benjy in [place] and Kalpesh in [place]. Pt had a sister who while waiting for a liver transplant two years ago. Support / Caregiver Plans Who will be your primary caregiver? Kym (was not here for eval because she is looking after their 8month old grandson). Contact #: [phone] Health status & availability: She was caregiver for liver transplant in 2018 and does not work.She is very knowledgeable. Who will be your secondary caregiver(s)? Kimberly Contact #: [phone] Health status & availability: Not working and very available. Other important supportive relationships: 1. If several caregivers are involved, will they be able to cooperate with each other? Yes 2. How comfortable are you asking for and/or receiving help? Used to help from since liver txp in 2018. 3. Have you been or are you currently a caregiver for someone else (i.e. children, spouse, parents)? a. If you???re not there, who will help them? No 4. Are there any ongoing family disagreements or life issues that may be impacted by the transplant? No 5. Does anyone in your household or caregiving team use tobacco, or abuse alcohol or illicit substances? No Advance Directives Do you have an advance directive? Not Received Do you have a DPOA for healthcare or finances? no A living will? no Who is the proxy? can decide Home Environment Living situation: Private Home Rent or Own? Own Utilities: water source: city, Electricity: yes, Type of Heat: Electric Number of steps to enter home: Some steps and a ramp Are bed and bath are on the same level? yes Pt lived here for his first transplant. Education / Employment / Financial Situation What is your highest level of education? Hs diploma Are you able to read and write? 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 No Date of last employment: 1.5 years ago What are your thoughts about returning to work after transplant? Would like to go back to work Time expected to be off work following transplant: N/A Disability Are you on any form of disability? yes What type? SSDI What is the status? Active Financial Status Do you have any current financial concerns? No What is your source of income? SSDI Is current income adequate to meet monthly needs and current medications? yes What is your plan to pay for housing and transportation after transplant? Same as now Would you be interested in fundraising information? no Insurance / Resources Payor/Plan Subscriber Name Rel Member # Group # MEDICARE - MEDICARE LEONCIO WHALEN JR Self [id number] [place]GS [address] [place] LEONCIO CHAVEZ* Self [id number] [address] Who currently pays your insurance premium(s)? Free Medicaid, Medicare is taken out of disability check. Medicare Part D Plan (if applicable): Active Medication Coverage What are your medication costs for generic, preferred brand, and non-preferred brand medications? $100-$125/month, but has been told be Medicaid that he should not be paying anything for this. He hastried to submit for reimbursement and it has not happened. This is likely because he uses a specialty pharmacy. How will you pay for these medications after transplant? Currently affords it. VA Benefits Have you served in the ? no Do you use a VA clinic? no Understanding of Medical Situation What is your primary diagnosis? Believes kidney failure is due to IS medications from liver transplant in 2018. Do you have any other health issues? yes If yes, how do they impact you? DM II (since 2016), htn. He uses insulin as needed but states it is under control and he does not usually need the full dose. He has made dietary and lifestyle changes that have also helped. Do you have any potential living donor options? yes Benjy Stauffer, Kalpesh Stauffer, Santy Stauffer (three sons), Carlos Eduardo Harrell, Tong Barnett, and Gadiel Paredes have all expressed interest. Dialysis center, schedule, and start date (if applicable): Center: [facility] [address] [place] [address] Schedule: [facility] Start date: 2018 Type of Dialysis: HD (started at home but had infection after back surgery and hospitalizations andhad to switch to in center) Missed appointments? no Asking to be taken off early? no Following diet and fluid restrictions? yes Effects on Lifestyle: I'm fine , used to get nauseated a lot Infections: When on PD Treatment Compliance / Adherence How do you manage your medications now? Caregiver helps keep it scheduled Do you have any difficulties in getting or taking your medications? No Have you ever changed the way you take a medication without talking to the doctor? no Do you have a PCP or other medical provider you see regularly in the community? no What has your relationship been like with your medical providers? Positive Knowledge & Understanding of Transplant Process Do you know anyone else that has had a transplant? yes What is your biggest concern? Denies concerns Were the psychosocial risks of transplant reviewed: yes Willingness / Desire for Treatment (Transplant) Do you want to proceed with a transplant? yes What are your expectations for transplant? I just want to get back to my normal life Functional Ability / Personal Care Functional Ability What physical changes/declines/improvements have you seen in the last six months? Back surgery April 2020 and took some time and then broke his leg in four places. He is now able to walk again but has to use a wheelchair to help his back with long distances. . Ambulation: Assisted Vision: No vision impairment Hearing: Mild/moderate impairment - uses hearing aids, speak slowly/loudly Transportation: Independent - drives self or Family/friends drive to appointments/errands Sleep: No problems with sleep Hygiene: Able to bathe self, groom or Carries out hygiene routine on a regular basis Exercise: Participates occasionally in an exercise program Household tasks -are you independent with: Cooking, Cleaning/Laundry, Yardwork or Shopping (groceryand personal) Hobbies / Interests What are your hobbies/interests (pasttimes and stress relievers)? Family Do you have any activities that you???re unable to do now, that you hope to return to after transplant? yes Cognitive Function / Health Literacy Do you have any history of developmental delays/learning differences/special education/OT/PT/speechtherapy? no Do you have any current or past problems with a medical issue (e.g. CVA, TBI, encephalopathy) that has impacted your cognitive function? no Have you noticed any problems with or changes in: Your attention span/concentration level for conversations, TV, reading, etc.? no Episodes of disorientation/getting lost while driving or at a store? no Problems with safety risks/concerns (e.g. leaving the stove on or a candle burning, forgetting to lock the front door, not preparing food appropriately, etc.)? no Your ability to manage your medical regimen? no Mental Health Indicate mental status: Alert Indicate orientation: Person Place Time Situation Indicate appearance: Appears stated age Well groomed Indicate affect: Within normal limits Cooperative Indicate cognitive function: Attentive: yes Memory problems: no Thought Processes Organized? yes Do you have a history of: Pt reports some depression with starting dialysis, but nothing significant. Has anyone ever physically, emotionally, or sexually abused you? no Have you ever attempted suicide or thought about harming yourself or others? no Have you ever been hospitalized in a psychiatric hospital? no Do you currently or have you ever seen a therapist/counselor/psychiatrist? no Have you used medications for mental health issues, sleep and/or pain now or in the past? no *If yes, please indicate names/dosages/prescribing provider information: Per patient report, he was briefly was on an anti-depressant in the hospital in April for back surgery, but he did not feel like it was needed and he took him off of it. 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 He also has a hx ofa depakote rx, but states he has never taken this and denies that he has ever been diagnosed with amood disorder. Generalized Anxiety Disorder Questionnaire DONALD-2 Over the last two weeks how often have you been bothered by the following problems? 1. Feeling nervous, anxious or on edge. 0 - Not at all 2. Not being able to stop or control worrying. 0 - Not at all Total score: Add responses to both questions: 0 *If the score is >= 3, refer for further evaluation (or follow with the other five items of the DONALD- 7 to grade symptom severity) Patient Health Questionnaire (PHQ 2) -Depression Scale During the past month, have you often been bothered by the following problems? 1. Feeling down, depressed or hopeless? 1 - Several days 2. Little interest or pleasure in doing things? 0 - Not at all Total score: Add responses to both questions : 1 Score range is from 3 to 6. A score >=3 is considered a positive response for depression. If a positive response is obtained, other symptoms such as fatigue, restlessness, guilt, poor concentration, suicidal ideation, and change in sleep or appetite should be elicited to confirm possible depression and need for referral. Coping What are the other stressors in your life? None What helps you cope when you are feeling stressed? I've got a good attitude and uses gratitude that he is alive, grandchildren Substance Abuse Tobacco Social History Tobacco Use Smoking Status Never Smoker Smokeless Tobacco Never Used Alcohol Social History Substance and Sexual Activity Alcohol Use No Comment: Alcoholic Drinks/day: Never Drank Alcohol Illicit Substances Social History Substance and Sexual Activity Drug Use Yes Comment: Drug use: Drug Use Denies any drug use. Substance Abuse & Treatment History What is your family history with alcohol and drug use? Father was alcoholic, uncle was alcoholic Legal Issues Are you currently or have you ever been on probation or parole? no Do you have or have you ever had any warrants out for your arrest? no Have you had any substance-related legal problems? no Do you have any current child support concerns? 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 yes Impression Low Risk -1;Moderate Risk -2;High Risk -3;Absolute contraindication -4 Social Support: 1 Identified Strengths / Risks: Pt has been caregiver since liver txp in 2018 and has done very well. He has backup support from family members. Financial / Insurance: 1 Identified Strengths / Risks: Insurance and finances have been adequate to cover costs from liver txp. Compliance: 1 Identified Strengths / Risks: Has done very well with liver txp. Functional Status: 2 Identified Strengths / Risks: Not working, on dialysis, needs occasionally ambulatory assistance for long distances Cognitive Function1 Identified Strengths / Risks: No issues Mental Health1 Identified Strengths / Risks: No concerns Coping Skills1 Identified Strengths / Risks: Adequate coping skills Substance Use1 Identified Strengths / Risks: Denies all Legal Issues1 Identified Strengths / Risks: Denies Understanding of Transplant Process1 Identified Strengths / Risks: Previous liver txp Motivation for Transplant1 Identified Strengths / Risks: Strong motivation PLAN: What intervention, follow-up or consults are needed? SW will continue to assist the patient PRN with psychosocial concerns as appropriate. RECOMMENDATION: Psychosocial Risk Profile (related to patient???s ability to adhere to a transplant regimen and be successful): 1 Low, no psychosocial issues were identified that may impact transplant outcome: Pt presents for kidney transplant evaluation. He had a liver transplant in 2018 for fatty liver, but states he has never used drugs, alcohol, or nicotine/tobacco. He has done well with his liver transplant and has strong support from his , who was his primary caregiver for his first transplant.Pt denies any unmet emotional needs. He is on dialysis and has multiple living donors. He has adequate insurance and finances and has been able to afford post- txp meds so far. Pt is psychosocially cleared for listing at this time. FS 60. 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 He also has a hx ofa depakote rx, but states he has never taken this and denies that he has ever been diagnosed with amood disorder. documented in this encounter Plan of Treatment Not on file documented as of this encounter Visit Diagnoses Diagnosis End stage renal disease ([facility]) End stage renal disease documented in this encounter Care Teams Deck Officer Relationship Specialty Start Date End Date Edgar Fournier MD [address] [place] [address] PCP - General 12/25/20 Enrique Griffith MD [address] [place] [address] Referring Physician Nephrology 01/08/21 documented as of this encounter
--- OUTSIDE RECORDS SUMMARY | 2024-07-12 13:06 | XMS_ITS | Encounter Summary ---
Author Organization [facility] Address [address] [place] [address] Care Team Providers Care Labor Relations Worker Name Role Phone Edgar Fournier MD Primary Care Provider [phone] Enrique Griffith MD Unavailable [phone] Encounter Details Date Type Department Care Team (Latest Contact Info) Description 02/23/2021 Travel Social History Tobacco Use Types Packs/Day [...] on filedocumented in this encounter Care Teams Labor Relations Worker Relationship Specialty Start Date End Date Edgar Fournier MD [facility] [place] [address] PCP - General 12/25/20 Enrique Griffith MD [address] [place] [id number] Referring Physician Nephrology 01/08/21 documented as of this encounter
--- OUTSIDE RECORDS SUMMARY | 2024-07-12 13:06 | XMS_ITS | Encounter Summary ---
Author Organization [facility] Address [address] [id number] Care Team Providers Care Lay Out And Detail Drafter Name Role Phone Edgar Fournier MD Primary Care Provider [phone] Enrique Griffith MD Unavailable [phone] Encounter Details Date Type Department Care Team (Late st Contact Info) Description 03/18/2021 Telephone [facility] [address] [facility] [address] [place] [phone] Zion Virgen, RN [facility] [id number] [address] [id number] Social History Tobacco Use Types Packs/Day Years [...] Telephone Encounter - Zion Virgen RN - 03/18/2021 3:29 PM EDT Called patient informed him of need for RHC, patient verbalized understanding and is accepting of procedure. Patient also asked about living donors, informed patient that any interested persons wouldneed to contact the living donor team, but that they can call them anytime to ask about starting that process (confirmed that patient does have living donor program's number.) documented in this encounter Plan of Treatment Not on file documented as of this encounter Visit Diagnoses Diagnosis Pre-transplant evaluation for end stage renal disease- Primary Other specified pre-operative examination Pre-transplant evaluation for kidney transplant documented in this encounter Care Teams Lay Out And Detail Drafter Relationship Specialty Start Date End Date Edgar Fournier MD [address] [place] [address] PCP - General 12/25/20 Enrique Griffith MD [address] [place] [address] Referring Physician Nephrology 01/08/21 documented as of this encounter
--- OUTSIDE RECORDS SUMMARY | 2024-07-12 13:06 | XMS_ITS | Encounter Summary ---
Author Organization [facility] Address [address] [id number] Care Team Providers Care Electrical Integrator Name Role Phone Edgar Fournier MD Primary Care Provider [phone] Enrique Griffith MD Unavailable [phone] Encounter Details Date Type Department Care Team (Late st Contact Info) Description 02/04/2021 Telephone [facility] [address] [facility] [address] [place] [phone] Zion Virgen, RN HOSPITAL K[facility]NEY [id number] [address] [id number] Social History Tobacco Use Types Packs/Day Years [...] Telephone Encounter - Zion Virgen RN - 02/04/2021 10:45 AM EDT Called and spoke with patient to inform him of committee decision. We will be starting his evaluation, encouraged patient to continue losing weight. Patient asked question regarding when he can be listed active, explained that once evaluation and local testing is complete and has been reviewed, andprovided said testing is good, only then would we be able to get him listed active. Patient verbalized understanding denied further needs/issues. documented in this encounter Plan of Treatment Not on file documented as of this encounter Visit Diagnoses Not on filedocumented in this encounter Care Teams Electrical Integrator Relationship Specialty Start Date End Date Edgar Fournier MD [address] [place] [address] PCP - General 12/25/20 Enrique Griffith MD [address] [place] [phone] Referring Physician Nephrology 01/08/21 documented as of this encounter
--- OUTSIDE RECORDS SUMMARY | 2024-07-12 13:06 | XMS_ITS | Encounter Summary ---
Author Organization [facility] Address [address] [place] [address] Care Team Providers Care Academic Computing Director Name Role Phone Edgar Fournier MD Primary Care Provider [phone] Enrique Griffith MD Unavailable [phone] Reason for Visit * Auth/Cert Specialty Diagnoses / Procedures Referred By Declan hines Referred To Contact Diagnoses Pre-transplant evaluation for end stage renal disease Pre-transplant evaluation for end stage renal disease [Z01.818] Procedures Right heart cath Georgiana CummingsElectronics Utility WorkerMD [address] [place], [place] [id number] Phone: tel: Cardiac Weight And Test Bar Clerk [address] [place] [address] Phone: tel: Referral ID Status Reason Start Date Expiration Date Visits Re quested Visits Authorized Encounter Details Date Type Department Care Team (Latest Contact Info) Description 05/14/2021 6:24 AM EDT - 05/15/2021 2:01 AM EDT Hospital Encounter Cardiac Weight And Test Bar Clerk [address] [place] [address] Dez Pressley MD [address] [place] [address] Pre-transplant evaluation for end stage renal disease; WHO group 2 pulmonary arterial hypertension (CMS/HCC) Discharge Disposition: Home or Self Care [...] Sign Reading Time Taken Comments Blood Pressure 204/179 05/14/2021 9:30 AM EDT Pulse 86 05/14/2021 9:30 AM EDT Temperature 36.7 ??C (98.1 ??F) 05/14/2021 8:34 AM ED T Respiratory Rate 14 05/14/2021 9:30 AM EDT Oxygen Saturation 91% 05/14/2021 9:30 AM EDT Inhaled Oxygen Concentration - - Weight 112 kg (246 lb 14.6 oz) 05/14/2021 7:04 A M EDT Height 172.7 cm (5' 8 ) 05/14/2021 7:04 AM EDT Body Mass Index 37.54 05/14/2021 7:04 AM EDT documented in this encounter Discharge Instructions * Attachments The following attachments cannot be sent through Care Everywhere. * Cardiac Catheterization, Bleeding or Hematoma After ([place]) * Right Heart Catheterization - Transplant ([place]) ([place]) documented in this encounter Medications at Time [...] Take every . ergocalciferol (ergocalciferol) 1.25 MG (24626 UT) capsule Take 1 capsule (50,000 Units) [...] been discussed with the patient and/or their public relations representative. All questions answered and they agree to proceed. * H&P - Stan Mora MD - 05/14/2021 7:27 AM EDT Images from the original note were not included. CARDIOLOGY HISTORY & PHYSICAL SUBJECTIVE History Of Present Illness Aiden Stauffer is a 46 y.o. male with a past medical history of ESRD, s/p OLT, HTN, DM2 who initially presented to the [facility] on 05/14 for scheduled RHC. Patient [...] Tacrolimus and Codeine Home Medications Reviewed in [facility] OBJECTIVE Physical Exam Blood pressure (!) 224/113, [...] Imaging Labs and imaging were reviewed in [facility]. ASSESSMENT/PLAN Principal Problem: Pre-transplant evaluation for kidney transplant Aiden Stauffer is a 46 y.o. male with a past medical history of ESRD, s/p OLT, HTN, DM2 who initially presented to the [facility] on 05/14 for scheduled RHC. Scheduled RHC prior to renal transplant workup: Past history for WHO Group II disease. Known reduced EF with cath <2 years ago without significant disease. - Proceed with [facility] Stan Mora MD Fellow, PGY-5, Department of Cardiovascular Medicine Pager: [phone] Cosigned by Dez Pressley MD at 05/14/2021 [...] - 97 % 2022 3:32 PM EST [facility] Total Hemoglobin, Arterial, Whole Blood 14.4 13.7 - 17.5 g/dL 10/21/2022 3:32 PM EST [facility] Blasting Contract Miner ID Wilmer Olivier 10/21/2022 3:32 PM EST [facility] Device ID [id number] 10/21/2022 3:32 PM EST [facility] Comment:Testing performed by Weight And Test Bar Clerk staff. All results are immediately given to the physician. Results have not been confirmed by the Clinical Laboratory. It is the responsibility of the physician to confirm results. POCT Sample Site WHOLE BLOOD 10/21/2022 3:32 PM EST [facility] Arterial blood specimen / Unknown 05/14/2021 8:24 AM EDT 05/14/2021 8:20 AM EDT us Dez Pressley MD LAB POINT OF CARE TE ST DOCKED DEVICE UNSOLICITED RESULTS Final Result [facility] [address] [place] [id number] * RIGHT HEART CATHETERIZATION (05/14/2021 8:21 AM [...] then carried out using a 7.5F VIP [place] catheter.. Pressures were recorded as the catheter [...] the patient was transferred back to the clinical lab technologist holding area in good condition. Petrona Sheppard MD CV CARDIAC CATH PROCEDURES Final Result * (ABNORMAL) POCT co-oximetry (05/14/2021 8:18 AM EDT) [facility] POCT Oxyhemoglobin 83(L) 94 - 97 % 2022 3:32 PM EST [facility] Total Hemoglobin, Arterial, Whole Blood 13.4(L) 13.7 - 17.5 g/dL 10/21/2022 3:32 PM EST [facility] Bl[employer]er ID Wilmer Olivier 10/21/2022 3:32 PM EST [facility] Device ID [id number] 10/21/2022 3:32 PM EST [facility] Comment:Testing performed by Weight And Test Bar Clerk staff. All results are immediately given to the physician. Results have not been confirmed by the Clinical Laboratory. It is the responsibility of the physician to confirm results. POCT Sample Site WHOLE BLOOD 10/21/2022 3:32 PM EST [facility] Arterial blood specimen / Unknown 05/14/2021 8:18 AM EDT 05/14/2021 8:15 AM EDT Dez Pressley MD LAB POINT OF CARE TE ST DOCKED DEVICE UNSOLICITED RESULTS Final Result Performing Organization Address City/State/[facility] Co de Phone Number [facility] [address] [place] [id number] * (ABNORMAL) Basic metabolic panel (05/14/2021 8:00 AM EDT) [facility] Glucose, Plasma 135(H) 74 - 99 mg/dL 05/14/2021 8:39 AM EDT [facility] BUN, Plasma 56(H) 7 - 21 mg/dL 05/14/2021 8:39 AM EDT [facility] Creatinine, Plasma 8.95(H) 0.80 - 1.30 mg/dL 05/14/2021 8:39 AM EDT [facility] BUN/Creatinine Ratio 6 05/14/2021 8:39 AM EDT [facility] Sodium, Plasma 138 136 - 145 mmol/L 05/14/2021 8:39 AM EDT [facility] Potassium, Plasma 6.2(H) 3.7 - 4.8 mmol/L 05/14/2021 8:39 AM EDT [facility] Chloride, Plasma 96(L) 97 - 107 mmol/L 05/14/2021 8:39 AM EDT [facility] CO2, Plasma 25 22 - 29 mmol/L 05/14/2021 8:39 AM EDT [facility] Anion Gap 17(H) 6 - 16 mmol/L 05/14/2021 8:39 AM EDT [facility] Total Calcium, Plasma 8.9 8.9 - 10.2 mg/dL 05/14/2021 8:39 AM EDT [facility] eGFR 6(L) >60 mL/min/1.7 3m*2 05/14/2021 8:39 AM EDT [facility] Comment:eGFR = estimated GFR ; [...] 8(L) >60 mL/min/1.7 3m*2 05/14/2021 8:39 AM EDT [facility] Comment:eGFR = estimated GFR ; [...] BLOOD ORDERABLES Final Res ult [facility] [address] [place] [address] * (ABNORMAL) Hemogram (CBC) (05/14/2021 8:00 AM EDT) WBC Count 4.23 3.70 - 10.30 10*3/uL LAB HEMATOLOGY METHOD 05/14/2021 8:18 AM EDT [facility] RBC Count 3.63(L) 4.60 - 6.10 10*6/uL LAB HEMATOLOGY METHOD 05/14/2021 8:18 AM EDT [facility] HGB 12.4(L) 13.7 - 17.5 g/dL LAB HEMATOLOGY METHOD 05/14/2021 8:18 AM EDT [facility] HCT 37.8(L) 40.0 - 51.0 % LAB HEMATOLOGY METHOD 05/14/2021 8:18 AM EDT [facility] Platelet Count 169 155 - 369 10*3/uL LAB HEMATOLOGY METHOD 05/14/2021 8:18 AM EDT [facility] MCV 104(H) 79 - 98 fL LAB HEMATOLOGY METHOD 05/14/2021 8:18 AM EDT [facility] MCH 34.2(H) 26.0 - 32.0 pg LAB HEMATOLOGY METHOD 05/14/2021 8:18 AM EDT [facility] MCHC 32.8 30.7 - 35.5 g/dL LAB HEMATOLOGY METHOD 05/14/2021 8:18 AM EDT [facility] RDW 14.1 11.5 - 14.5 % LAB HEMATOLOGY METHOD 05/14/2021 8:18 AM EDT [facility] MPV 9.5 8.8 - 12.5 fL LAB HEMATOLOGY METHOD 05/14/2021 8:18 AM EDT [facility] nRBC 0.0 <=0.0 per 100 WBCs LAB HEMATOLOGY METHOD 05/14/2021 8:18 AM EDT [facility] Blood Venous blood specimen / Unknown Venipuncture / Unknown 05/14/2021 8:00 AM EDT 05/14/2021 8:11 AM EDT us Dez Pressley MD LAB BLOOD ORDERABLES Final Res [facility] [address] [place] [address] documented in this encounter Visit Diagnoses Diagnosis [...] Routine, Recovery(Phase II-Outpatient)/On Unit(Inpatient), mild pain, fever sodium chloride 0.9 % flush 10 mL [...] Routine, Intraprocedure 0811 (Given - Provider: Stan Mora MD) midazolam (Versed) injection (CANCELED) As needed, [...] care documented in this encounter Care Teams Academic Computing Director Relationship Specialty Start Date End Date Edgar Fournier MD [address] [place] [id number] PCP - General 12/25/20 Enrique Griffith MD [address] [place] [phone] Referring Physician Nephrology 01/08/21 documented as of this encounter
--- OUTSIDE RECORDS SUMMARY | 2024-07-12 13:06 | XMS_ITS | Encounter Summary ---
Author Organization [facility] Address [address] [place] [address] Care Team Providers Care Top Cutter Name Role Phone Edgar Fournier MD Primary Care Provider [phone] Enrique Griffith MD Unavailable Reason for Referral * Imaging (Routine) - Closed Specialty Diagnoses / Procedures Referred By Declan hines Referred To Contact Radiology Diagnoses End stage renal disease ([facility]) Procedures CT Angio Cardiac Coronary Arteries [id number] Geovanna Sheppard MD [address] [address] Phone: tel: fax: Referral ID Status Reason Start Date Expiration Date Visits Re quested Visits Authorized [id number] Closed 02/04/2021 08/03/2021 1 1 * Consultation (Routine) - Closed Specialty Diagnoses / Procedures Referred By Declan hines Referred To Contact Transplant Diagnoses End stage renal disease ([facility]/HCC) Procedures [id number] Geovanna Sheppard MD [address] [address] Phone: tel: fax: [facility] Center [address] [address] Phone: tel: fax: Referral ID Status Reason Start Date Expiration Date V isits Requested Visits Authorized [id number] Closed Specialty Services Required 02/04/2021 08/03/2021 1 1 * Consultation (Routine) - Closed Specialty Diagnoses / Procedures Referred By Contac t Referred To Contact Transplant Diagnoses End stage renal disease (CMS/HCC) Procedures [id number] Geovanna Sheppard MD [address] [address] Phone: tel: fax: [facility] Transplant [place] [id number] [address] Phone: tel: fax: Referral ID Status Reason Start Date Expiration Date V isits Requested Visits Authorized [id number] Closed Specialty Services Required 02/04/2021 08/03/2021 1 1 * Consultation (Routine) - Closed Specialty Diagnoses / Procedures Referred By Contac t Referred To Contact Transplant Diagnoses End stage renal disease (CMS/HCC) Procedures [id number] Geovanna Sheppard MD [address] [address] Phone: tel: fax: [facility] Transplant [place] [address] [address] Phone: tel: fax: Referral ID Status Reason Start Date Expiration Date V isits Requested Visits Authorized [id number] Closed Specialty Services Required 02/04/2021 08/03/2021 1 1 * Transplant (Routine) - Pending Review Specialty Diagnoses / Procedures Referred By Declan hines Referred To Contact Transplant Diagnoses End stage renal disease ([facility]) Geovanna Sheppard MD [address] [address] Phone: tel: fax: [facility] [address] [address] Phone: tel: fax: Referral ID Status Reason Start Date Expiration Date Visits Requested Visits Authorized [id number] Pending Review Specialty Services Required 02/04/2021 08/03/[phone] * Imaging (Routine) - Closed Specialty Diagnoses / Procedures Referred By Declan hines Referred To Contact Radiology Diagnoses End stage renal disease ([facility]) Procedures CT Abdomen Pelvis [place] Contrast [id number] Geovanna Sheppard MD [address] [address] Phone: tel: fax: Referral ID Status Reason Start Date Expiration Date Visits Re quested Visits Authorized [id number] Closed 02/04/2021 08/03/2021 1 1 * Imaging (Routine) - Closed Specialty Diagnoses / Procedures Referred By Declan hines Referred To Contact Cardiology Diagnoses End stage renal disease ([facility]) Procedures Echo, Adult Transthoracic (TTE) Complete [id number] Geovanna Sheppard MD [address] [address] Phone: tel: fax: Referral ID Status Reason Start Date Expiration Date V isits Requested Visits Authorized [id number] Closed Perform Procedure 02/04/2021 08/03/2021 1 1 Encounter Details Date Type Department Care Team (Late st Contact Info) Description 02/04/2021 Orders Only [facility] Transplant Center [address] [place] [address] Zion Virgen, RN [id number] [address] [place] [address] End stage renal disease (CMS/HCC) (Primary Dx) [...] Name Type Priority Associated Diagnoses Order Schedule TXP Clinic Evaluation Outpatient Referral Routine End stage renal disease (CMS/HCC) Ordered: 02/04/2021 Consult - Transplant Dietitian Outpatient Referral Routine End stage renal disease (CMS/HCC) 1 Occurrences starting 02/04/2021 until 08/06/2021 Consult - Transplant Pharmacy Outpatient Referral Routine End stage renal disease (CMS/HCC) 1 Occurrences starting 02/04/2021 until 08/06/2021 Consult - Transplant Social Work Outpatient Referral Routine End stage renal disease (CMS/HCC) 1 Occurrences starting 02/04/2021 until 08/06/2021 documented as of this encounter Results * ECHO, ADULT TRANSTHORACIC COMPLETE W/ CONTRAST (03/02/2021 4:06 PM EDT) MV E Vmax 91.3 cm/s TAYLOR ISCV [...] ISCV LAV(MOD-4ch) 121.0 mL TAYLOR ISCV NAZARIO [id number] 000 mL/m2 TAYLOR ISCV Ao Sinus Diam [...] Mid 55.0 mm TAYLOR ISCV TR PG [id number] 000 mmHg TAYLOR ISCV RVSP 46.0 mmHg TAYLOR ISCV RAP 15.5908301 [id number] 000 mmHg TAYLOR ISCV Anatomical Region Laterality [...] performed.Definity contrast was used during the study. Result Yuri Sheppard MD CV ECHO PROCEDURES Final Result * (ABNORMAL) Varicella Zoster Antibody IgG (03/02/2021 12:57 PM EDT) Varicella Zoster Antibody IgG Positive(A ) Negative 03/03/2021 11:42 AM EDT [facility] Blood Venous blood specimen / Unknown Venipuncture / Unknown 03/02/2021 12:57 PM EDT 03/02/2021 1:29 PM EDT us Geovanna Sheppard MD LAB BLOOD ORDERABLES Final Resul t Performing Organization Address [facility] Co de Phone Number [facility] [address] [place] [address] * Uric acid (03/02/2021 12:57 PM EDT) Uric Acid, Plasma 4.7 3.7 - 8.0 mg/dL 03/02/2021 2:01 PM EDT [facility] Blood Venous blood specimen / Unknown Venipuncture / Unknown 03/02/2021 12:57 PM EDT 03/02/2021 1:29 PM EDT Result Yuri Sheppard MD LAB BLOOD ORDERABLES Final Resul t Performing Organization Address [facility] Phone Number [facility] [address] [place] [address] * (ABNORMAL) Urinalysis with reflex microscopic (03/02/2021 12:57 PM EDT) Color, Urine Yellow LAB URINALYSIS - AUTOMATED METHOD 03/02/2021 2:15 PM EDT [facility] Clarity, Urine Clear LAB URINALYSIS - AUTOMATED METHOD 03/02/2021 2:15 PM EDT [facility] Spec [place], Urine 1.020 <=1.005 to >=1.030 LAB URINALYSIS - AUTOMATED METHOD 03/02/2021 2:15 PM EDT [facility] pH, Urine >=8.5(H) 4.5 to 8 LAB URINALYSIS - AUTOMATED METHOD 03/02/2021 2:15 PM EDT [facility] Protein, Urine >=300(A) Negative mg/dL LAB URINALYSIS - AUTOMATED METHOD 03/02/2021 2:15 PM EDT [facility] Glucose, Urine 250(A) Negative mg/dL LAB URINALYSIS - AUTOMATED METHOD 03/02/2021 2:15 PM EDT [facility] Ketones, Urine Negative Negative mg/dL LAB URINALYSIS - AUTOMATED METHOD 03/02/2021 2:15 PM EDT [facility] Blood, Urine Negative Negative LAB URINALYSIS - AUTOMATED METHOD 03/02/2021 2:15 PM EDT [facility] Bilirubin, Urine Negative Negative LAB URINALYSIS - AUTOMATED METHOD 03/02/2021 2:15 PM EDT [facility] Urobilinogen, Urine 0.2 0.2 to 1.0 mg/dL LAB URINALYSIS - AUTOMATED METHOD 03/02/2021 2:15 PM EDT [facility] Leukocytes, Urine Negative Negative LAB URINALYSIS - AUTOMATED METHOD 03/02/2021 2:15 PM EDT [facility] Nitrite, Urine Negative Negative LAB URINALYSIS - AUTOMATED METHOD 03/02/2021 2:15 PM EDT [facility] RBC, Urine 2.0 0 to 3 /HPF LAB URINALYSIS - AUTOMATED METHOD 03/02/2021 2:15 PM EDT [facility] WBC, Urine 0 - 5 0 to 5 /HPF LAB URINALYSIS - AUTOMATED METHOD 03/02/2021 2:15 PM EDT [facility] Squamous Epithelial Cells 0 - 5 0 to 5 /HPF LAB URINALYSIS - AUTOMATED METHOD 03/02/2021 2:15 PM EDT [facility] Hyaline Casts 0 - 8 0 to 8 /LPF LAB URINALYSIS - AUTOMATED METHOD 03/02/2021 2:15 PM EDT [facility] Bacteria, Urine Negative Negative LAB URINALYSIS - AUTOMATED METHOD 03/02/2021 2:15 PM EDT [facility] Urine Urine specimen obtained by clean catch procedure / Unknown Non-blood Collection / Unknown 03/02/2021 12:57 PM EDT 03/02/2021 2:06 PM EDT us Geovanna Sheppard MD LAB URINE ORDERABLES Final Resul t [facility] [address] [place] [address] * RPR (03/02/2021 12:57 PM EDT) Rapid Plasma Reagin Nonreactive Nonreactive 03/02/2021 4:49 PM EDT [facility] Comment:No laboratory eviden ce of syphilis. Blood Venous blood specimen / Unknown Venipuncture / Unknown 03/02/2021 12:57 PM EDT 03/02/2021 1:29 PM EDT us Geovanna Sheppard MD LAB BLOOD ORDERABLES Final Resul t Performing Organization Address [facility]/ZIP Co de Phone Number [facility] [address] [place] [address] * Protime-INR (03/02/2021 12:57 PM EDT) Pathologist [facility] Prothrombin Time 13.3 12.2 - 14.2 sec LAB COAGULATION METHOD 03/02/2021 2:10 PM EDT [facility] INR 1.0 0.9 - 1.1 LAB COAGULATION METHOD 03/02/2021 2:10 PM EDT [facility] Blood Venous blood specimen / Unknown Venipuncture / Unknown 03/02/2021 12:57 PM EDT 03/02/2021 1:29 PM EDT Narrative [facility] - 03/02/2021 2:10 PM EDT OPTIMAL INR RANGES FOR PATIENT ON ORAL ANTICOAGULANT THERAPY Prevention of venous thromboembolism ?INR 2.0 to 3.0 In patients with heart disease: Atrial fibrillation ?INR 2.0 to 3.0 Valvular heart disease ? INR 2.0 to 3.0 Tissue heart valves ?INR 2.0 to 3.0 Mechanical prosthetic valves ? INR 2.5 to 3.[address] ? INR 2.5 to 3.5 us Geovanna Sheppard MD LAB BLOOD ORDERABLES Final Resul t Performing Organization Address [facility] de Phone Number [facility] [address] [place] [address] * (ABNORMAL) Phosphorus (03/02/2021 12:57 PM EDT) Phosphorus, Plasma 4.8(H) 2.5 - 4.5 mg/dL 03/02/2021 2:01 PM EDT [facility] Blood Venous blood specimen / Unknown Venipuncture / Unknown 03/02/2021 12:57 PM EDT 03/02/2021 1:29 PM EDT us Geovanna Sheppard MD LAB BLOOD ORDERABLES Final Resul t Performing Organization Address [facility] de Phone Number [facility] [address] [place] [address] * (ABNORMAL) Lipid panel (03/02/2021 12:57 PM EDT) Cholesterol, Plasma 188 <200 mg/dL 03/02/2021 2:01 PM EDT [facility] Comment: Cholesterol Reference Range (age >17 years): Desirable? <200 mg/dL Borderline? 200 to 239 mg/dL Undesirable? >239 mg/dL HDL 31(L) >=40 mg/dL 03/02/2021 2:01 PM EDT [facility] Comment: HDL Cholesterol Reference Ranges (age >17 years): Female, acceptable? > or = 50 mg/dL Male, acceptable? > or = 40 mg/dL Triglycerides, Plasma 218(H) <150 mg/dL 03/02/2021 2:01 PM EDT [facility] Comment: Triglyceride Reference Range (age >17 years): Desirable:?? <150 mg/dL Borderline high:?? 150 to 199 mg/dL High:?? 200 to 499 mg/dL Very high:?? >499 mg/dL Increased risk of pancreatitis:?? >1000 mg/dL Cholesterol/HDL Ratio 6 03/02/2021 2:01 PM EDT [facility] LDL, Calculated 113.4(H) <100 mg/dL 03/02/2021 2:01 PM EDT [facility] Comment: LDL Cholesterol Reference Range (age >17 years): Optimal: ??<100 mg/dL Near or above optional: 100 - 129 mg/dL Borderline high: 130 - 159 mg/dL High: 160 - 189 mg/dL Very high: >189 mg/dL LDL Cholesterol Reference Range (age <18 years): Desirable: ? <110 mg/dL Borderline: ?110 - 129 mg/dL Undesirable: ?? >130 mg/dL Blood Venous blood specimen / Unknown Venipuncture / Unknown 03/02/2021 12:57 PM EDT 03/02/2021 1:29 PM EDT us Geovanna Sheppard MD LAB BLOOD ORDERABLES Final Resul t Performing Organization Address City/[facility] de Phone Number [facility] [address] [place] [address] * HIV 1 & 2 Antibody/Antigen Screen (03/02/2021 12:57 PM EDT) Pathologist [facility] HIV 1 & 2 Antibody/Anti gen Screen Nonreactive Nonreactive 03/02/2021 2:54 PM EDT [facility] Blood Venous blood specimen / Unknown Venipuncture / Unknown 03/02/2021 12:57 PM EDT 03/02/2021 1:29 PM EDT us Geovanna Sheppard MD LAB BLOOD ORDERABLES Final Resul t Performing Organization Address [facility] Co de Phone Number [facility] [address] [place] [address] * Hepatitis C antibody (03/02/2021 12:57 PM EDT) Hepatitis C Antibody Negative Negative 03/02/2021 2:54 PM EDT [facility] Blood Venous blood specimen / Unknown Venipuncture / Unknown 03/02/2021 12:57 PM EDT 03/02/2021 1:29 PM EDT us Geovanna Sheppard MD LAB BLOOD ORDERABLES Final Resul t Performing Organization Address [facility] Co de Phone Number [facility] [address] [place] [address] * Hepatitis B surface antigen (03/02/2021 12:57 PM EDT) Hepatitis B Surf Antigen Negative Negative 03/02/2021 3:12 PM EDT [facility] Blood Venous blood specimen / Unknown Venipuncture / Unknown 03/02/2021 12:57 PM EDT 03/02/2021 1:29 PM EDT us Geovanna Sheppard MD LAB BLOOD ORDERABLES Final Resul t Performing Organization Address [place] Phone Number [facility] [address] [place] [address] * (ABNORMAL) Hepatitis B surface antibody (03/02/2021 12:57 PM EDT) Hepatitis B Surface Antibody Positive( A) Negative mIU/mL 03/02/2021 2:54 PM EDT [facility] Comment:Antibodies to HBsAg are present at a level greater than or equal to 12 International Units/L. This usually indicates protection against infection. Blood Venous blood specimen / Unknown Venipuncture / Unknown 03/02/2021 12:57 PM EDT 03/02/2021 1:29 PM EDT Result Yuri Sheppard MD LAB BLOOD ORDERABLES Final Resul t Performing Organization Address [facility] Co de Phone Number [facility] [address] [place] [address] * (ABNORMAL) Hepatitis B core antibody, total (03/02/2021 12:57 PM EDT) Hepatitis B Core Total Antibody IgG,IgM Positive(A ) Negative 03/02/2021 3:35 PM EDT [facility] Blood Venous blood specimen / Unknown Venipuncture / Unknown 03/02/2021 12:57 PM EDT 03/02/2021 1:29 PM EDT us Geovanna Sheppard MD LAB BLOOD ORDERABLES Final Resul t Performing Organization Address [facility] de Phone Number [facility] [address] [place] [address] * (ABNORMAL) Hepatic function panel (03/02/2021 12:57 PM EDT) Conjugated Bilirubin, Plasma <0.2 0.0 - 0.3 mg/dL 03/02/2021 2:01 PM EDT [facility] Alkaline Phosphatase, Plasma 138(H) 40 - 115 U/L 03/02/2021 2:01 PM EDT [facility] Total Bilirubin, Plasma 0.3 0.2 - 1.1 mg/dL 03/02/2021 2:01 PM EDT [facility] Albumin, Plasma 4.3 3.5 - 5.2 g/dL 03/02/2021 2:01 PM EDT [facility] Total Protein 7.4 6.3 - 7.9 g/dL 03/02/2021 2:01 PM EDT [facility] ALT, Plasma 6(L) 11 - 41 U/L 03/02/2021 2:01 PM EDT [facility] AST, Plasma 12 12 - 40 U/L 03/02/2021 2:01 PM EDT [facility] Blood Venous blood specimen / Unknown Venipuncture / Unknown 03/02/2021 12:57 PM EDT 03/02/2021 1:29 PM EDT us Geovanna Sheppard MD LAB BLOOD ORDERABLES Final Resul t Performing Organization Address City/[facility]/ZIP Co de Phone Number [facility] [address] [place] [address] * (ABNORMAL) Hemogram (03/02/2021 12:57 PM EDT) WBC Count 3.51(L) 3.70 - 10.30 10*3/uL LAB HEMATOLOGY METHOD 03/02/2021 1:45 PM EDT [facility] RBC Count 3.13(L) 4.60 - 6.10 10*6/uL LAB HEMATOLOGY METHOD 03/02/2021 1:45 PM EDT [facility] HGB 10.1(L) 13.7 - 17.5 g/dL LAB HEMATOLOGY METHOD 03/02/2021 1:45 PM EDT [facility] HCT 31.8(L) 40.0 - 51.0 % LAB HEMATOLOGY METHOD 03/02/2021 1:45 PM EDT [facility] Platelet Count 257 155 - 369 10*3/uL LAB HEMATOLOGY METHOD 03/02/2021 1:45 PM EDT [facility] MCV 102(H) 79 - 98 fL LAB HEMATOLOGY METHOD 03/02/2021 1:45 PM EDT [facility] MCH 32.3(H) 26.0 - 32.0 pg LAB HEMATOLOGY METHOD 03/02/2021 1:45 PM EDT [facility] MCHC 31.8 30.7 - 35.5 g/dL LAB HEMATOLOGY METHOD 03/02/2021 1:45 PM EDT [facility] RDW 15.2(H) 11.5 - 14.5 % LAB HEMATOLOGY METHOD 03/02/2021 1:45 PM EDT [facility] MPV 9.2 8.8 - 12.5 fL LAB HEMATOLOGY METHOD 03/02/2021 1:45 PM EDT [facility] nRBC 0.0 <=0.0 per 100 WBCs LAB HEMATOLOGY METHOD 03/02/2021 1:45 PM EDT [facility] Blood Venous blood specimen / Unknown Venipuncture / Unknown 03/02/2021 12:57 PM EDT 03/02/2021 1:32 PM EDT us Geovanna Sheppard MD LAB BLOOD ORDERABLES Final Resul t [facility] [address] [place] [address] * (ABNORMAL) Yury Salinas IgG Ab (03/02/2021 12:57 PM EDT) EBV ANTIBODY TO VIRAL CAPSID ANTIGEN IGG >750.0(H) 0.0 - 21.9 U/mL 03/04/2021 11:41 AM EDT [facility] ([facility]) Blood Venous blood specimen / Unknown Venipuncture / Unknown 03/02/2021 12:57 PM EDT 03/02/2021 1:34 PM EDT Narrative [facility]) - 03/04/2021 11:41 AM EDT INTERPRETIVE INFORMATION: Yury-Salinas Virus Antibody to ?Viral Capsid Antigen, IgG ??17.9 U/mL or less.......Not Detected ??18.0-21.9 U/mL..........Indeterminate - Repeat testing in ?10-14 days may be helpful. ??22.0 U/mL or greater....Detected Performed By: [facility] [address] [place] [address] Real Estate Instructor: Gabbi Rausch MD Geovanna Sheppard MD LAB BLOOD ORDERABLES Final Resul t Performing Organization Address City/[facility] de Phone Number [facility] [employer]) [address] [place] [address] * (ABNORMAL) C Peptide (03/02/2021 12:57 PM EDT) [facility] C Peptide 7.54(H) 0.81 - 5.30 ng/mL 03/02/2021 3:12 PM EDT [facility] Blood Venous blood specimen / Unknown Venipuncture / Unknown 03/02/2021 12:57 PM EDT 03/02/2021 1:29 PM EDT Geovanna Sheppard MD LAB BLOOD ORDERABLES Final Resul t [facility] [address] [place] [address] * Cytomegalovirus antibody, IgG (03/02/2021 12:57 PM EDT) [facility] CMV ANTIBODY IGG >10.00 U/mL 03/04/2021 11:35 AM EDT [facility]) Blood Venous blood specimen / Unknown Venipuncture / Unknown 03/02/2021 12:57 PM EDT 03/02/2021 1:34 PM EDT Narrative [facility] ([facility]) - 03/04/2021 11:35 AM EDT INTERPRETIVE INFORMATION: Cytomegalovirus Antibody, IgG ??0.59 U/mL or less......... Not Detected ??0.6 - 0.69 U/mL........... Indeterminate-Repeat testing in ? 10-14 days may be helpful. ??0.70 U/mL or greater...... Detected In immunocompromised patients, CMV serology (IgG or IgM antibody titers) may not be reliable and may be misleading in the diagnosis of acute or reactivation CMV disease. The preferred method for diagnosis is culture of virus and/or demonstration of viral antigen in peripheral white cells (buffy coat), bronchoalveolar lavage (BAL) cells, or tissue biopsies. This test should not be used for blood donor screening, associated re-entry protocols, or for screening Human Cell, Tissues and Cellular and Tissue-Based Products (HCT/P). The best evidence for current infection is a significant change on two appropriately timed specimens, where both tests are done in the same laboratory at the same time. Performed By: [facility] [address] [place] [address] Real Estate Instructor: Gabbi Rausch MD us Geovanna Sheppard MD LAB BLOOD ORDERABLES Final Resul t [facility] ([facility]) [address] [place] [address] * (ABNORMAL) Basic metabolic panel (03/02/2021 12:57 PM EDT) Pathologist [facility] Glucose, Plasma 200(H) 74 - 99 mg/dL 03/02/2021 2:01 PM EDT [facility] BUN, Plasma 28(H) 7 - 21 mg/dL 03/02/2021 2:01 PM EDT [facility] Creatinine, Plasma 5.70(H) 0.80 - 1.30 mg/dL 03/02/2021 2:01 PM EDT [facility] BUN/Creatinine Ratio 5 03/02/2021 2:01 PM EDT [facility] Sodium, Plasma 135(L) 136 - 145 mmol/L 03/02/2021 2:01 PM EDT [facility] Potassium, Plasma 5.0(H) 3.7 - 4.8 mmol/L 03/02/2021 2:01 PM EDT [facility] Chloride, Plasma 95(L) 97 - 107 mmol/L 03/02/2021 2:01 PM EDT [facility] CO2, Plasma 26 22 - 29 mmol/L 03/02/2021 2:01 PM EDT [facility] Anion Gap 14 6 - 16 mmol/L 03/02/2021 2:01 PM EDT [facility] Total Calcium, Plasma 9.1 8.9 - 10.2 mg/dL 03/02/2021 2:01 PM EDT [facility] eGFR 11(L) >60 mL/min/1.7 3m*2 03/02/2021 2:01 PM EDT [facility] Comment:eGFR = estimated GFR ; eGFR units = mL/min/1.73 sq meters Chronic Kidney Disease is considered if eGFR <60 mL/min/1.73 sq meters Kidney failure is considered if eGFR is <15 mL/min/1.73 sq meters. eGFR assumes steady state plasma creatinine concentration; not applicable if renal function is rapidly changing or patient is on dialysis. eGFR, if AFR/AM 13(L) >60 mL/min/1.7 3m*2 03/02/2021 2:01 PM EDT [facility] Comment:eGFR = estimated GFR ; [...] blood specimen / Unknown Venipuncture / Unknown 03/02/2021 12:57 PM EDT 03/02/2021 1:29 PM EDT us Geovanna Sheppard MD LAB BLOOD ORDERABLES Final Resul t [facility] [address] [place] [address] * APTT (03/02/2021 12:57 PM EDT) aPTT 29 26 - 34 sec LAB COAGULATION METHOD 03/02/2021 2:10 PM EDT [facility] Blood Venous blood specimen / Unknown Venipuncture / Unknown 03/02/2021 12:57 PM EDT 03/02/2021 1:29 PM EDT us Geovanna Sheppard MD LAB BLOOD ORDERABLES Final Resul t [facility] [address] [place] [address] * CT Abdomen Pelvis wo IV Contrast (03/02/2021 12:17 PM EDT) Anatomical Region Laterality Modality Abdomen, Pelvis Computed Tomogra phy Impressions 03/02/2021 12:39 PM EDT Atrophic bilateral [place] kidneys. Postoperative changes from orthotopic liver transplant. 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 CRITICAL RESULT: ?? No. COMMUNICATION: Per this written report. Signed by Humble Blair on ??03/02/2021 12:39 PM Narrative 03/02/2021 12:39 PM EDT Exam/Procedure: CT ABDOMEN PELVIS WO IV CONTRAST ordered by GEOVANNA SHEPPARD, [id number] CLINICAL INDICATION: Kidney Transplant evaluation TECHNIQUE: Multiple [...] removed. The spleen is unremarkable. Atrophic bilateral [place] kidneys. No hydronephrosis. The adrenal glands are [...] PELVIS WO IV CONTRAST ordered by GEOVANNA SHEPPARD,[id number] CLINICAL INDICATION: Kidney Transplant evaluation TECHNIQUE: Multiple [...] surgically removed. The spleen isunremarkable. Atrophic bilateral [place] kidneys. No hydronephrosis. Theadrenal glands are unremarkable. [...] changesfrom prior L5 laminectomy. IMPRESSION: Atrophic bilateral [facility]. Postoperative changes from orthotopic liver transplant. 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 CRITICAL RESULT: No. COMMUNICATION: Per this written report. Signed by Humble [place] on 03/02/2021 12:39 PM us Geovanna Sheppard MD IMG CT PROCEDURES Final Result * CT Angio Cardiac Coronary Arteries (03/02/2021 [...] CARDIAC CORONARY ARTERIES ordered by GEOVANNA SHEPPARD, [id number] CLINICAL INDICATION: 46 years Male Cardiac Evaluation [...] was reviewed interactively on an advanced workstation ([employer]) capable of 2 and 3 dimensional displays [...] ANGIO CARDIAC CORONARY ARTERIES ordered by GEOVANNA [id number] CLINICAL INDICATION: 46 years Male Cardiac Evaluation Prior to LiverTransplantation Symptoms: kidney transplant evaluation Clinical Data Height: 170 cm Weight: 113 kg Risk Factors: ESRD, HTN Relevant Cardiac Diagnostic Tests: Echocardiogram TECHNIQUE: Procedure Data Image Acquisition: A Dual source 192 MDCT scanner ([employer], [employer])was used for data acquisition. A non-contrast [...] Data wasreviewed interactively on an advanced workstation ([employer]) capable of 2and 3 dimensional displays in [...] by Kris Parham on 03/02/2021 3:40 PM us Geovanna Sheppard MD IMG CT PROCEDURES Final Result documented in this encounter Visit Diagnoses Diagnosis End stage renal disease (CMS/HCC)- Primary End stage renal disease End stage renal disease (CMS/HCC) End stage renal disease End stage renal disease (CMS/HCC) End stage renal disease documented in this encounter Care Teams Top Cutter Relationship Specialty Start Date End Date Edgar Fournier MD [address] [place] [id number] PCP - General 12/25/20 Enrique Griffith MD [address] [place] [id number] Referring Physician Nephrology 01/08/21 documented as of this encounter
--- OUTSIDE RECORDS SUMMARY | 2024-07-12 13:06 | XMS_ITS | Encounter Summary ---
Author Organization [facility] Address [address] [place] [address] Care Team Providers Care Steam Oven Operator Name Role Phone Edgar Fournier MD Primary Care Provider [phone] Enrique Griffith MD Unavailable [phone] Reason for Visit * Transplant (Routine) - Authorized Specialty Diagnoses / Procedures Referred By Declan hines Referred To Contact Transplant Diagnoses ESRD (end stage renal disease) ([facility]) Petrona Sheppard MD [address] [address] Phone: tel: fax: [facility] [address] [address] Phone: tel: fax: Referral ID Status Reason Start Date Expiration Date Visits Requested Visits Authorized [id number] Authorized Specialty Services Required 01/08/2021 10/02/2024 [id number] Encounter Details Date Type Department Care Team (Late st Contact Info) Description 01/28/2021 8:20 AM EDT Office Visit [facility] [address] [address] Antione Romano MANAGEMENT PLANNER [address] [place] [address] Essential hypertension (Primary Dx); Pre-transplant evaluation for kidney transplant; Type 2 diabetes mellitus with diabetic nephropathy, with long-term current use of insulin ([facility]); Background diabetic retinopathy ([facility]); Neuropathy; ESRD (end stage renal disease) ([facility]) Social History Tobacco Use Types Packs/Day Years [...] Sign Reading Time Taken Comments Blood Pressure 180/109 01/28/2021 9:43 AM EDT Pulse 106 01/28/2021 8:27 AM EDT Temperature 37 ??C (98.6 ??F) 01/28/2021 8:27 AM EDT Respiratory Rate 18 01/28/2021 8:27 AM EDT Oxygen Saturation 95% 01/28/2021 8:27 AM EDT Inhaled Oxygen Concentration - - Weight 113 kg (248 lb 7.3 oz) 01/28/2021 8:27 AM EDT Height 172.7 cm (5' 8 ) 01/28/2021 8:27 AM EDT Body Mass Index 37.78 01/28/2021 8:27 AM EDT documented in this encounter Miscellaneous Notes * Progress Notes - Antione Romano, CRM SYSTEM ADMINISTRATOR - 01/28/2021 8:20 AM EDT INITIAL KIDNEY TRANSPLANT CONSULTATION Today I had the pleasure of seeing Aiden Stauffer as a new consultation for a potential kidney transplant. Aiden Stauffer is a pleasant 45 y.o. 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 Patient has been on dialysis since November of 2019, via left forearm AV fistula; he makes about a pt of urine a day. Of note, patient is hard of hearing. Patient underwent a orthotopic liver transplant on October 09, 2017 at the [facility]. 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 On immunosuppression with cyclosporine and CellCept currently, reports inability to tolerate tacrolimus secondary to neurotoxicity. Patient currently on entecavir daily, presumed received a hepatitis B core positive donor. He is also scheduled to undergo kidney transplant evaluation at the [facility] in March. History of morbid obesity, has lost 25 lb in the last few months but making lifestyle changes, states motivation to continue to lose weight. PAST MEDICAL HISTORY: End-stage renal disease due to diabetic and hypertensive nephropathy, as well as calcineurin inhibitor nephrotoxicity, on dialysis since November 2019. Diabetes mellitus type 2 for over 15 years Diabetic neuropathy and retinopathy insulin-dependent Hypertension for over 5 years Hyper lipidemia Kim cirrhosis status post liver transplant September 2017 Anemia chronic kidney disease Obesity class 2 BMI of 37 Obstructive sleep apnea no longer using CPAP Acute pancreatitis GERD Chronic pain Cholelithiasis BPH Pneumonia Nephrolithiasis Blood transfusion 2016 and 2019 Hard of hearing PAST SURGICAL HISTORY: Liver transplant October 09, 2017 Tips placement 2017 Esophageal varices banding Left Fracture leg with hardware placement December 2020 Back surgery due to infection March 20202019 Past Medical History: Diagnosis Date ??? Anemia ??? Conversions - Other Anemia ??? Conversions - Other Benign Prostatic Hypertrophy ??? Conversions - Other Cirrhosis ??? Conversions - Other Diabetes Mellitus ??? Diabetes mellitus type 2 (CMS/HCC) ??? Fatty (change of) liver, not elsewhere classified 10/25/2012 ??? Hematochezia ??? Hypertension ??? Liver cirrhosis secondary to KIM (nonalcoholic steatohepatitis) (CMS/HCC) ??? Neuropathy ??? Obesity [...] Sister ??? Diabetes Sister ??? Diabetes Mother SOCIAL HISTORY: . 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 He has a high school education Denies ever consuming any tobacco, alcohol or recreation drug use. Patient Active Problem List Diagnosis Date Noted ??? Pre-transplant evaluation for kidney transplant 01/28/2021 ??? Type 2 diabetes mellitus with diabetic nephropathy, with long-term current use of insulin ([facility]) 01/28/2021 ??? Hematochezia 12/28/2016 ??? Nonalcoholic steatohepatitis (KIM) 04/28/2016 ??? Hypertension 02/03/2016 ??? Anemia 10/08/2015 ??? Obesity 07/30/2014 ??? Uncontrolled diabetes mellitus ([facility]) 07/30/2014 Review of Systems: A 14 point ROS was reviewed and negative except as noted: See history of present illness. Intermittent complaints of some sinus headaches, hearing loss, sinus problems, nausea, changes in appetite. Body mass index is 37.78 kg/m??. Wt Readings from Last 2 Encounters: 01/28/21 113 kg (248 lb 7.3 oz) 05/31/16 107 kg (236 lb 15.9 oz) Vitals: 01/28/21 0827 BP: (!) 208/115 Pulse: 106 Resp: 18 Temp: 37 ??C (98.6 ??F) SpO2: 95% repeat blood pressure at the end of clinic visit was 180/109, heart rate of 100 Current Outpatient Medications: ??? ALPRAZolam (Xanax) 0.5 MG tablet, Take 0.5 mg by mouth at night if needed for anxiety., Disp: ,Rfl: ??? aspirin 81 MG EC tablet, Take 81 mg by mouth 1 (one) time each day., Disp: , Rfl: ??? carBAMazepine (TEGretol) 200 MG tablet, Take 200 mg by mouth 2 (two) times a day., Disp: , Rfl: ??? cloNIDine (Catapres) 0.1 MG tablet, 2 (two) times a day. , Disp: , Rfl: ??? cyclobenzaprine (Flexeril) 10 MG tablet, TAKE TABLET PRN, Disp: , Rfl: ??? cycloSPORINE (SandIMMUNE) 100 MG capsule, Take 100 mg by mouth 2 (two) times a day., Disp: , Rfl: ??? doxazosin (Cardura) 8 MG tablet, Take 8 mg by mouth every night., Disp: , Rfl: ??? entecavir (Baraclude) 0.5 MG tablet, Take 0.5 mg by mouth 1 (one) time per week., Disp: , Rfl: ??? ergocalciferol (ergocalciferol) 1.25 MG (35554 UT) capsule, 1 cap(s) orally once a week on monday, Disp: , Rfl: ??? hydrALAZINE (Apresoline) 100 MG tablet, Take 100 mg by mouth 3 (three) times a day., Disp: , Rfl: ??? metoprolol tartrate (Lopressor) 100 MG tablet, Take 100 mg by mouth every night., Disp: , Rfl: ??? mycophenolate (Cellcept) 250 MG capsule, Take by mouth 2 (two) times a day., Disp: , Rfl: ??? pantoprazole (ProtoNix) 40 MG EC tablet, TAKE 1 TABLET TWICE DAILY 30 MINUTES BEFORE BREAKFAST AND DINNER., Disp: , Rfl: ??? phentermine 15 MG capsule, Take 15 mg by mouth if needed., Disp: , Rfl: ??? insulin glargine (Lantus SoloStar) 100 UNIT/ML injection, USE DIRECTED, 30UNITS AT BEDTIME, Disp: , Rfl: PHYSICAL EXAM Vital signs reviewed GENERAL: Appears [...] or gallop. dorsalis pedis pulses bilaterally EXTREMITIES: No lower extremity edema. GI: No organomegaly or [...] and bruit ASSESSMENT AND PLAN: In summary, Adien Stauffer is a pleasant 45 y.o. 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 Patient has been on dialysis since November of 2019, via left forearm AV fistula; he makes about a pt of urine a day. Of note, patient is hard of hearing. Patient underwent a orthotopic liver transplant on October 09, 2017 at the [facility]. 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 On immunosuppression with cyclosporine and CellCept currently, reports inability to tolerate tacrolimus secondary to neurotoxicity. Patient currently on entecavir daily, presumed received a hepatitis B core positive donor. He is also scheduled to undergo kidney transplant evaluation at the [facility] in March. -Obesity class 2 BMI of 37.7: History of morbid obesity, has lost 25 lb in the last few months by making lifestyle changes, states motivation to continue to lose weight; history of obstructive sleep apnea no longer using CPAP since weight loss. He has a large abdominal girth and large overhanging panniculus, marginal for kidney transplant consideration. Told patient to lose an additional 20 lb while undergoing kidney transplant evaluation. He will need to be reassessed at the clinic by transplant surgeon prior to active listing. -Hypertension: Patient was quite hypertensive in the clinic this morning, initial blood pressure of208/115, patient then took antihypertensive medications; repeat blood pressures at the end of visitdown to 180/110; denies any neurological complaints. Needs to demonstrate better blood pressure control. Currently on clonidine, metoprolol and hydralazine. -Reports having several family and friends who are interested in pursuing living donation. We discussed the risk/benefits of kidney transplantation including infection, bleeding, rejection, reoperation, possible recurrence of kidney disease, graft thrombosis, AL, stroke and . We discussed the outcomes of donor vs living donor kidney transplant as well as paired exchange program. We also discussed the risks of immunosuppression including infection and de renan cancer formation. Discussed need to take immunosuppressive medications as long as kidney transplant is working. Discussed living and cadaveric kidney transplantation; encouraged to find living donor. Other non transplant options were addressed. All questions answered to patient's satisfaction. Aiden Stauffer will be discussed at our weekly patient selection committee meeting where a decision will be made regarding listing and any other studies that will be done to complete the evaluation. Thank you for the opportunity to care for this pleasant patient. 01/28/21 7:57 AM documented in this encounter Plan of Treatment Not on file documented as of this encounter Procedures Procedure Name Priority Date/Time Associated Diagnosis Comments DNA ISOLATION AND HOLD (HLA) Routine 01/28/2021 9:53 AM EDT ESRD (end stage renal disease) ([facility]) HLA ANTIBODY TESTING (LSA) Routine 01/28/2021 9:53 AM EDT ESRD (end stage renal disease) ([facility]) HLA LOW RES SSP PATIENT Routine 01/28/2021 9:53 AM EDT ESRD (end stage renal disease) ([facility]) HLA LOW RESOLUTION TYPING Routine 01/28/2021 9:53 AM EDT ESRD (end stage renal disease) ([facility]) NICOTINE AND COTININE METABOLITE, SERUM, QUANTITATIVE Routine 01/28/2021 9:53 AM EDT ESRD (end stage renal disease) ([facility]) ABO/RH Routine 01/28/2021 9:53 AM EDT ESRD (end stage renal disease) ([facility]) HEMOGLOBIN A1C Routine 01/28/2021 9:53 AM EDT ESRD (end stage renal disease) ([facility]) SERUM DRUG SCREEN Routine 01/28/2021 9:5 2 AM EDT ESRD (end stage renal disease) ([facility]) documented in this encounter Results * DNA Isolation and Hold (HLA) (01/28/2021 9:53 AM EDT) Blood Venous blood specimen / Unknown Venipuncture / Unknown 01/28/2021 9:53 AM EDT 01/28/2021 10:52 AM EDT us Petrona Sheppard MD LAB MOLECULAR DIAGNOSTICS ORDERA BLES Final Result Performing Organization Address [facility] Co de Phone Number [facility] [address] [place] [address], [place] * HLA Low Resolution Typing, Patient (01/28/2021 9:53 AM EDT) Blood Venous blood specimen / Unknown Venipuncture / Unknown 01/28/2021 9:53 AM EDT 01/28/2021 10:52 AM EDT us Petrona Sheppard MD LAB BLOOD ORDERABLES Final Resul t Performing Organization Address [facility] de Phone Number [facility] [address] [place] [address], [place] * ABO/Rh (01/28/2021 9:53 AM EDT) ABO/Rh O Negative 01/28/2021 9:45 AM EDT BLOOD BANK Blood Venous blood specimen / Unknown Venipuncture / Unknown 01/28/2021 9:53 AM EDT 01/28/2021 10:39 AM EDT us Petrona Sheppard MD LAB BLOOD BANK TEST ORDERABLES F inal Result Performing Organization Address [facility] de Phone Number BLOOD BANK [address] [place] [address], [place] * (ABNORMAL) Hemoglobin A1c (01/28/2021 9:53 AM [...] Adults <6.0% Children and Adolescents <7.5% Source: ??[place] [employer]. Standards of medical care in diabetes,2017. Diabetes Care.2017:40 (suppl 1):S1-S135. HbA1c assay performed by an ion-exchange chromatography method that is certified traceable to the DCCT. us Petrona Sheppard MD LAB BLOOD ORDERABLES Final Resul t [facility] [address] [place] [id number] * Nicotine Cotinine Metabolite (01/28/2021 9:53 AM EDT) Pathologist [facility] Nicotine, S/P, Quant <2 ng/mL 01/31/2021 9:15 PM EDT [facility]) Cotinine, S/P, Quant <2 ng/mL 01/31/2021 9:15 PM EDT [facility]) [id number], S/P,QUANT <2 ng/mL 01/31/2021 9:15 PM EDT [facility]) Blood Venous blood specimen / Unknown Venipuncture / Unknown 01/28/2021 9:53 AM EDT 01/28/2021 10:25 AM EDT Narrative [facility]) - 01/31/2021 9:15 PM EDT Consistent with abstinence from nicotine-containing products for at least 1 week. INTERPRETIVE INFORMATION: Nicotine and Metabolites, ?Serum or Plasma, ?Quantitative Methodology: Quantitative Liquid Chromatography-Tandem Mass Spectrometry Positive cutoff: 2 ng/mL For medical purposes only; not valid for forensic use. This test is designed to evaluate recent use of nicotine-containing products. ??Passive and active exposure cannot be discriminated definitively, although a cutoff of 10 ng/mL cotinine is frequently used for surgery qualification purposes. ?? For smoking cessation programs or compliance testing, the absence of expected drug(s) and/or drug metabolite(s) may indicate non-compliance, inappropriate timing of specimen collection relative to drug administration, poor drug absorption, or limitations of testing. This test cannot distinguish between use of tobacco and purified nicotine products. The concentration value must be greater than or equal to the cutoff to be reported as positive. ?? This test was developed and its performance characteristics determined by [facility]. It has not been cleared or approved by the [place] Food and Drug Administration. This test was performed in a CLIA certified laboratory and is intended for clinical purposes. Performed By: [facility] [address] [place] [address] Cloth Finisher: Gabbi Rausch MD us Petrona Sheppard MD LAB BLOOD ORDERABLES Final Resul t Performing Organization Address [facility] Co de Phone Number [facility] ([facility] [address] [place] [address] * HLA Antibody Screen (PRA) (01/28/2021 9:53 AM EDT) Blood Venous blood specimen / Unknown Venipuncture / Unknown 01/28/2021 9:53 AM EDT 01/28/2021 10:50 AM EDT us Petrona Sheppard MD LAB BLOOD ORDERABLES Final Resul t Performing Organization Address [facility] Co de Phone Number [facility] [address] [place] [address], * Serum Drug Screen (01/28/2021 9:52 AM EDT) 9 Carboxy THC <5 <5 ng/mL 02/17/2021 10:30 AM EDT [facility] Comment:These results have b een appended to a previously final verified report. Alprazolam <5 <5 ng/mL 02/17/2021 10:30 AM EDT [facility] Comment:These results have b een appended to a previously final verified report. Amphetamine <10 <10 ng/mL 02/17/2021 10:30 AM EDT [facility] Comment:These results have b een appended to a previously final verified report. Benzolyecgonine <20 <20 ng/mL 10:30 AM EDT [facility] Comment:These results have b een appended to a previously final verified report. Buprenorphine <1 <1 ng/mL 02/17/2021 10:30 AM EDT [facility] Comment:These results have b een appended to a previously final verified report. Butalbital <50 <50 ng/mL 02/17/2021 10:30 AM EDT [facility] Comment:These results have b een appended to a previously final verified report. Clonazepam <5 <5 ng/mL 02/17/2021 10:30 AM EDT [facility] Comment:These results have b een appended to a previously final verified report. Codeine <5 <5 ng/mL 02/17/2021 10:30 AM EDT [facility] Comment:These results have b een appended to a previously final verified report. Diazepam <5 <5 ng/mL 02/17/2021 10:30 AM EDT [facility] Comment:These results have b een appended to a previously final verified report. Fentanyl <1 <1 ng/mL 02/17/2021 10:30 AM EDT [facility] Comment:These results have b een appended to a previously final verified report. Hydrocodone <2 <2 ng/mL 02/17/2021 10:30 AM EDT [facility] Comment:These results have b een appended to a previously final verified report. Hydromorphone <5 <5 ng/mL 02/17/2021 10:30 AM EDT [facility] Comment:These results have b een appended to a previously final verified report. Lorazepam <5 <5 ng/mL 02/17/2021 10:30 AM EDT [facility] Comment:These results have b een appended to a previously final verified report. MDA <10 <10 ng/mL 02/17/2021 10:30 AM EDT [facility] Comment:These results have b een appended to a previously final verified report. MDMA <10 <10 ng/mL 02/17/2021 10:30 AM EDT [facility] Comment:These results have b een appended to a previously final verified report. Meperidine <5 <5 ng/mL 02/17/2021 10:30 AM EDT [facility] Comment:These results have b een appended to a previously final verified report. Methadone <10 <10 ng/mL 02/17/2021 10:30 AM EDT [facility] Comment:These results have b een appended to a previously final verified report. Methadone Metabolite <10 <10 ng/mL 02/2021 10:30 AM EDT [facility] Comment:These results have b een appended to a previously final verified report. Methamphetamine <10 <10 ng/mL 10:30 AM EDT [facility] Comment:These results have b een appended to a previously final verified report. Midazolam <5 <5 ng/mL 02/17/2021 10:30 AM EDT [facility] Comment:These results have b een appended to a previously final verified report. Morphine <2 <2 ng/mL 02/17/2021 10:30 AM EDT [facility] Comment:These results have b een appended to a previously final verified report. Norbuprenorphine <5 <5 ng/mL 02/18/20 10:30 AM EDT [facility] Comment:These results have b een appended to a previously final verified report. Nordiazepam <10 <10 ng/mL 02/17/2021 10:30 AM EDT [facility] Comment:These results have b een appended to a previously final verified report. Oxazepam <5 <5 ng/mL 02/17/2021 10:30 AM EDT [facility] Comment:These results have b een appended to a previously final verified report. Oxycodone <2 <2 ng/mL 02/17/2021 10:30 AM EDT [facility] Comment:These results have b een appended to a previously final verified report. Oxymorphone <2 <2 ng/mL 02/17/2021 10:30 AM EDT [facility] Comment:These results have b een appended to a previously final verified report. Phenobarbital <50 <50 ng/mL 02/17/2021 10:30 AM EDT [facility] Comment:These results have b een appended to a previously final verified report. Temazepam <5 <5 ng/mL 02/17/2021 10:30 AM EDT [facility] Comment:These results have b een appended to a previously final verified report. Tramadol <20 <20 ng/mL 02/17/2021 10:30 AM EDT [facility] Comment:These results have b een appended to a previously final verified report. 7 Amino Clonazepam <5 <5 ng/mL 2020 10:30 AM EDT [facility] Comment:These results have b een appended to a previously final verified report. Norfentanyl <1 <1 ng/mL 02/17/2021 10:30 AM EDT [facility] Comment:These results have b een appended to a previously final verified report. Blood Venous blood specimen / Unknown Venipuncture / Unknown 01/28/2021 9:52 AM EDT 01/28/2021 10:25 AM EDT Narrative [facility] - 02/17/2021 10:30 AM EDT Test performed by LC-MS/MS at the [facility]. This test was developed and its performance characteristics determined by [facility]. It has not been cleared or approved by the FDA. The laboratory is regulated under CLIA as qualified to perform high-complexity testing. This test is used for clinical purposes. us Petrona Sheppard MD LAB BLOOD ORDERABLES Edited Resu lt - Final [facility] [address] [place] [address] documented in this encounter Visit Diagnoses Diagnosis Essential hypertension- Primary Unspecified essential hypertension Pre-transplant evaluation for kidney transplant Type 2 diabetes mellitus with diabetic nephropathy, with long-term current use of insulin ([facility]) Background diabetic retinopathy (CMS/[facility]) Neuropathy Mononeuritis of unspecified site ESRD (end stage renal disease) (CMS/[facility]) End stage renal disease documented in this encounter Care Teams Steam Oven Operator Relationship Specialty Start Date End Date Edgar Fournier MD [address] [place] [address] PCP - General 12/25/20 Enrique Griffith MD [address] [place] [address] Referring Physician Nephrology 01/08/21 documented as of this encounter
--- OUTSIDE RECORDS SUMMARY | 2024-07-12 13:07 | XMS_ITS | Encounter Summary ---
Author Organization [facility] Address [address] [id number] Care Team Providers Care Broadcast Chief Engineer Name Role Phone Edgar Fournier MD Primary Care Provider [phone] Enrique Griffith MD Unavailable [phone] Encounter Details Date Type Department Care Team (Late st Contact Info) Description 06/05/2017 [facility] Encounter HISTORICAL OT[facility] [address] [place] [address] Bridgett Márquez, RN [id number] [address] [place] [address] Social History Tobacco Use Types Packs/Day Years Used Date Smoking Tobacco: Never Assessed Sex and Gender Information Value Date Recorded Sex Assigned at Not on file Legal Sex Male 6:10 PM EDT Gender Identity Not on file Sexual Orientation Straight 03/02/2021 10 :04 AM EDT documented as of this encounter Miscellaneous Notes * Progress Notes - Bridgett Márquez - 06/05/2017 11:01 AM EDT Phd patient- no answer, no voicemail documented in this encounter Plan of Treatment Not on file documented as of this encounter Visit Diagnoses Not on filedocumented in this encounter Additional Health Concerns Infection Onset Date Last Indicated Resolved Time COVID-19 Rule-Out 11/08/2021 11/08/2021 11/08/2021 8:06 AM EDT documented as of this encounter Care Teams Broadcast Chief Engineer Relationship Specialty Start Date End Date Edgar Fournier MD [address] [place] [address] PCP - General 12/25/20 Enrique Griffith MD [address] [place] [address] Referring Physician Nephrology 01/08/21 documented as of this encounter
--- OUTSIDE RECORDS SUMMARY | 2024-07-12 13:07 | XMS_ITS | Encounter Summary ---
Author Organization [facility] Address [address] [place] [address] Care Team Providers Care Emergency Room Clinician Name Role Phone Unavailable Primary Care Provider Unavailabl e Encounter Details Date Type Department Care Team (Latest Contact Info) Description 09/06/2017 10:39 PM EST - 09/10/2017 2:12 PM EST Hospital Encounter [facility] H Inpatient [address] [place] [address] Genevieve Lovell MD Internal Medicine-Hospita lists [address] [facility], [facility] Acute and subacute hepatic failure without coma Social History Tobacco Use Types Packs/Day Years Used Date Smoking Tobacco: Never Assessed Sex and Gender Information Value Date Recorded Sex Assigned at Not on file Legal Sex Male 6:10 PM EDT Gender Identity Not on file Sexual Orientation Straight 03/02/2021 10 :04 AM EDT documented as of this encounter Medications at Time of Discharge Blood Glucose Monitoring Suppl (TRUEresult Blood Glucose) w/Device kit USE DIRECTED 07/30/2014 02 1 carvedilol (Coreg) 12.5 MG tablet TAKE 1 TABLET TWICE DAILY, WITH MORNING AND EVENING MEAL 02/03/2016 1 cyclobenzaprine (Flexeril) 10 MG tablet Take 10 mg by mouth 2 (two) times a day if needed. 10/08/2015 2 dicyclomine (Bentyl) 10 MG capsule TAKE 1 CAPSULE 4 TIMES DAILY 06/02/2014 1 gabapentin (Neurontin) 600 MG tablet 1 tab(s) orally 3 times a day 12/22/2016 1 Glucose Blood (TRUETEST TEST ) TEST TWICE DAILY. 07/30/2014 02 1 insulin glargine (Lantus SoloStar) 100 UNIT/ML injection USE DIRECTED, 30UNITS AT BEDTIME 01/27/2016 1 insulin lispro protamine-insuli n lispro (HumaLOG MIX 75/25 KWIKPEN) (75-25) 100 UNIT/ML inj pen inject 26 u sq BID before meals with potential titration not to exceed 80 u/day 05/31/2016 1 lactulose (Chronulac) 10 GM/15ML solution 30 milliliter(s) orally 3 times a day Take additional 1-2 doses if needed to achieve 3-4 bowel movements per day 06/09/2017 1 lactulose (Chronulac) 10 GM/15ML solution TAKE 15 ML 4 times daily 02/03/2016 1 magnesium citrate solution Take 300 ml 2 days before your colonoscopy 12/28/2016 1 metFORMIN (Glucophage) 1000 MG tablet TAKE 1 TABLET TWICE DAILY. 06/02/2014 1 neomycin (Mycifradin) 500 MG tablet TAKE 1 TABLET TWICE DAILY. 10/08/2015 1 polyethylene glycol-electroly lincoln (Nulytely) 420 g solution Take 2 liters at 6pm the night before your procedure and take 2 liters 5 hours prior to your procedure 12/28/2016 1 rifAXIMin (Xifaxan) 550 MG tablet Take 1 tablet twice daily 12/09/2015 1 SELENIUM PO 07/30/2014 1 SUPER B COMPLEX/C PO TAKE 1 TABLET DAILY DIRECTED. 07/30/2014 1 documented as of this encounter Miscellaneous Notes * Social Care Assessment Summary - Provider, MD Amrit - 09/08/2017 12:00 AM EST Patient Name: CLARITZA ROLLINS Date of : 1975 Discharge Planning Note Discharge Planning Note Discharge needs were identified Answers: No Scholarship? Answers: No AUGUST? Answers: No Medicare second notice? Answers: Not applicable Discharge Disposition Answers: Home Who will provide assistance post-discharge? Answers: self How many hours is/are the caregiver(s) available? Answers: No Assistance Required Caregiver Answers: Patient has a primary care provider Discharge Plan Notes: SW spoke with MDs this date re: pt's plan of care. According to MDs, this pt is medically stable for D/C this date and does not require further inpt care. The pt does not have any identified SW/DC planning needs. SW will continue to remain available and will follow up with D/C planning and needs as appropriate. Electronically signed by: Melody Jorge * Discharge Summary - Genevieve Lovell - 09/08/2017 12:00 AM EST HOSPITALIZATION: Admit Date:06-Sep-2017 Discharge Date:10-Sep-2017 Discharge Atttending Genevieve Sanabria MD Primary Care Physician ONESIMO Lopez Admitting DiagnosisHepatic failure, unspecified without coma DISCHARGE DIAGNOSIS: * Discharge Diagnosis 1Hepatic encephalopathy Reason for Hospitalization 42yo M w/PMH of SAL cirrhosis s/p TIPS 2013, HTN, DM, HLD who was transferred from OSH for worsening abdominal pain and hepatic encephalopathy. HOSPITAL COURSE: Hospital Course Admitted and initiated on increased lactulose and bowel regimen. Evaluated for sources of infection, none identified. No significant ascitic fluid found for diagnostic/therapeutic para. Upon further discussion with patient, abdominal pain at baseline. Patient remained inpatient to ensure bowel activity and improvement in encephalopathy. Creatining began worsening with concern for CARMEN and HRS. Patient given IVF and initiated on albumin challenge after fluids failed to improve renal function. Discussed with patient concerns for worsening renal function, but patient adament that he needs to leave the hospital. He has close follow-up with an appointment at on Monday, 2 days post DC, and anot her appoinment in [facility] later this week with hepatology/transplant. Reaffirmed concerns for patients renal function and encouraged close follow-up. Patient plans to leave no matter what today. Discussed risks and consequences of leaving. Patient reported understanding. Discussed possible issues with future transplant potential, patient voiced understanding and still chooses to leave hospital AMA. #Acute hepatic encephalopathy secondary to SAL cirrhosis - MELD 22; HE: grade 2 despite lactulose and rifaximin; contued home lactulose and rifaximin - no ascites on CT abd/pelvis or on bedside u/s at admission; varices w/ h/o banding - HRS: Cr improved from discharge, stable UOP and BPs (moderately elevated) - transplant: transplant listed here and at [facility]; transplant notified of presence & requested US liver for flow; revealed patent TIPS w/ mild increase in flow velocity indicating possible partial stenosis - Patient does not have a history of prior jaundice, ascites, variceal hemorrhage - avoided all NSAIDs due to risk of bleeding and renal failure. Tylenol used PRN for pain or fever (limited to no more than 2 gm/day). - Held spironolactone and lasix as he was taken off at last clinic appt. - contued PO lactulose; s/p bisacodyl supp., lactulose enema, SMOG enema - AHE resolved #CARMEN with possible HRS - Worsening creatinine, possibly 2/2 subclinical dehydration, especially after induced bowel movements w/ enemas - worsened despite 1L IVF bolus; initiated albumin challenge 09/09; target MAPs 80/90 per hepatology - Cr still rising, although increase slowed; completed albumin challenge prior to DC; needs close follow-up #HTN - continued home coreg & initiated therapy on nifedipine; held & discouraged use of MADAN/ARB in setting of decreased renal function and possible HRS; patient to discuss further managementwith transplant; held coreg / nifedipine in setting of possible HRS w/ soft BPs #DM - continued lantus + sliding scale insulin; held & discouraged use of metformin, patient todiscuss medication with transplant #Chronic pain - continued home xanaflex and gabapentin DIAGNOSTIC AND PROCEDURAL EVENTS: - Abdominal US - patent TIPS w/ mild increase flow velocity PHYSICAL EXAMINATION: - VITALS (last 24h) [retrieved for LEONCIO ROLLINS at 10 Sep 2017 13:13]: Tc: 36.3 Tmax: 36.6 @ Aug 07:30 Tf: 97.3 Tmax: 97.9 @ Aug 07:30 HR: 76 (64 - 79) BP: 118/74 (118/74 - 131/81) FSB (155 - 366) RR: 16 (16 - 16) SpO2: 92% (92% - 98%) LABS (last 24h) [retrieved for LEONCIO ROLLINS at 10 Sep 2017 13:13]: 140 102 30 < 146 Ca: 9.2 P: 4.7 M.1 [09/10 @ 04:12] 4.2 25 2.77 WBC: 5.6 / Hb: 8.9 / Hct: 25.0 / Plt: 103 [09/10 @ 04:12] PT: 19.8 / PTT: x / INR: 1.6 [09/10 @ 04:12] AST: 42 / ALT: 23 / AlkPhos: 133 / Bili: 5.3 / Prot: 5.5 / Alb: 2.3 [09/10 @ 04:12] GEN: resting comfortably in bed, NAD HEENT: NC/AT, EOMI, mucous membranes moist CV: RRR, no MRG. no peripheral edema. pulses 2/2 equal RESP: CTA, no increased work of breathing ABD: soft, non-tender, not distended, obese, normal BS MSK: normal ROM, no gross motor deficit NEURO: awake, alert, oriented to person and place SKIN: warm, dry. No rashes, bruising, tattoos, cyanosis. PSYCH: normal mood and affect. DISCHARGE INFORMATION: Discharge MedicationsApidra 100 units/mL injectable solution; injectable per sliding scale 3 times daily. Basaglar KwikPen 100 units/mL subcutaneous solution; 40 unit(s) subcutaneous once a day (in the evening at 19:00) carvedilol 25 mg oral tablet; 1 tab(s) orally 2 times a day ergocalciferol 50,000 intl units (1.25 mg) oral capsule; 1 cap(s) orally once a week on monday esomeprazole 40 mg oral delayed release capsule; 1 cap(s) orally once a day gabapentin 600 mg oral tablet; 1 tab(s) orally 3 times a day glimepiride 1 mg oral tablet; 1 tab(s) orally once a day (in the morning) lactulose 10 g/15 mL oral syrup; 30 milliliter(s) orally 3 times a day Take additional 1-2 doses ifneeded to achieve 3-4 bowel movements per day NIFEdipine 30 mg oral tablet, extended release; 1 tab(s) orally once a day tiZANidine 4 mg oral tablet; 1 tab(s) orally every 6 to 8 hours, As Needed Xifaxan 550 mg oral tablet; 1 tab(s) orally 2 times a day ATTESTATION: Attending Attestation: I saw and evaluated the patient. I discussed the case with the resident and agree with the resident's findings and plan as documented in the resident's note. Attending Billing: I spent < 30 minutes of patient care and instruction time in preparation for this discharge. Electronic Signatures: Genevieve Lovell MD (Attending) (Signed 10-Sep-17 13:50) Authored: ATTESTATION Co-Signer: HOSPITALIZATION, DISCHARGE DIAGNOSIS, HOSPITAL COURSE, DIAGNOSTIC AND PROCEDURAL EVENTS,PHYSICAL EXAMINATION, DISCHARGE INFORMATION Sancho Dwyer MD (Resident) (Signed 10-Sep-17 13:14) Authored: HOSPITALIZATION, DISCHARGE DIAGNOSIS, HOSPITAL COURSE, DIAGNOSTIC AND PROCEDURAL EVENTS, PHYSICAL EXAMINATION, DISCHARGE INFORMATION Last Updated: 10-Sep-17 13:50 by Genevieve Lovell MD (Attending) * Consults - Maren Friedman - 09/08/2017 12:00 AM EST Consultation Service: Service/ Team: GAS - Medicine / Gastroenterology. Requesting Attending Physician: Genevieve Lovell MD(Attending): Attending, Medicine - Internal, Medicine Consult Information: * Consult Requested Date/[id number] 13:05 * Consult Completed Date/[id number] 16:05 Chief Complaint: Chief Complaintconfusion Requesting ServiceMedicine Reason for Consultcirrhosis management Consult Note: - History and Physical Chief complaint: Confusion History of present illness: This is a 42yo male with a history of SAL cirrhosis s/p TIPS 2013, HTN, DM, HLD who was transferred from OSH for worsening abdominal pain and hepatic encephalopathy. The patient is active on the Transplant list. He left AMA from on 08/17 after admitted with HE and CARMEN possibly secondary to HRS. Hepatology is consulted with regards to outpatient cirrhosis management and specifically ARB continuation. His mental status has improved after starting lactulose and he is now at his baseline per . He complains of chronic shoulder pain and lower abdominal pain. Having 2-3 bowel movements daily. He presented with a creatinine of 1.2 and now it has trended up to 1.58 with no reported changes in UOP. MELD=22. CT AP shows chololithiasis but no ascites. US Doppler shows patent TIPS with increased velocities since last US, suggestive of TIPS stenosis. He has past history of variceal bleed and historyof postbanding ulcers (last EGD 12/2016 with esophagitis). Review of systems: 14 point review of systems conducted and is negative except as stated above. Past medical/surgical history: SAL cirrhosis HTN DM HLD Cholelithiasis BPH Social history: Smoking: denies Alcohol: denies Illicits: denies Family history: Family history reviewed and is noncontributory. Medications: [retrieved for LEONCIO ROLLINS at 08 Sep 2017 16:06]: Xifaxan 550 mg oral tablet 1 tab(s) orally 2 times a day carvedilol 25 mg oral tablet 1 tab(s) orally 2 times a day NIFEdipine 30 mg oral tablet, extended release 1 tab(s) orally once a day gabapentin 600 mg oral tablet 1 tab(s) orally 3 times a day tiZANidine 4 mg oral tablet 1 tab(s) orally every 6 to 8 hours, As Needed Apidra 100 units/mL injectable solution injectable per sliding scale 3 times daily. Basaglar KwikPen 100 units/mL subcutaneous solution 40 unit(s) subcutaneous once a day (in the evening at 19:00) glimepiride 1 mg oral tablet 1 tab(s) orally once a day (in the morning) ergocalciferol 50,000 intl units (1.25 mg) oral capsule 1 cap(s) orally once a week on monday esomeprazole 40 mg oral delayed release capsule 1 cap(s) orally once a day lactulose 10 g/15 mL oral syrup 30 milliliter(s) orally 3 times a day Take additional 1-2 doses if needed to achieve 3-4 bowel movements per day Active Meds [retrieved for LENOCIO ROLLINS at 08 Sep 2017 16:15]: ANTI-INFECTIVES RifaXIMin: 550 MG Oral 2 times a day CARDIOVASCULAR AGENTS caRVEdilol: 25 MG Oral 2 times a day NIFEdipine Tablet, Extended Release: 30 MG Oral once a day CENTRAL NERVOUS SYSTEM AGENTS TIZANidine: 4 MG Oral 3 times a day COAGULATION MODIFIERS Enoxaparin Inj. (PROPHYLAXIS): 40 MG SubCutaneous once a day GASTROINTESTINAL AGENTS LacTULose: 30 mL Oral every 2 hours METABOLIC AGENTS Dextrose 10% - 25 gm/250 mL (IVPB): 12.5 gram IntraVenous Piggy Back Per Glucose Monitoring Glucagon Inj.: 1 MG IntraVenously Per Glucose Monitoring Glucose 40%: 1 tube Oral Per Glucose Monitoring Insulin Glargine (LANTUS) Inj. 100 units/mL: 40 units SubCutaneous once a day (at bedtime) Insulin Lispro (HUMALOG) Inj. 100 units/mL (Correction Factor): units SubCutaneous 3 times a day after meals Insulin Lispro (HUMALOG) Inj. 100 units/mL (Correction Factor): units SubCutaneous <User Schedule> NUTRITIONAL PRODUCTS Lactated Ringers (no additives): 1000 mL IntraVenous continuous Allergies: Codeine->Other Flexeril->Other Physical exam: Vital signs: BP 139/70 HR 76 R 18 T 98.5 (36.9) GEN: Resting in NAD, speaks in full sentences, obese male, mildly somnolent HEENT: icteric, EOMI, moist mucous membranes NECK: Supple, ROM intact RESP: CTAB, no wheezes or crackles CV: RRR, normal S1 and S2, no MRG, no lower extremity edema ABD: soft, nontender, nondistended, normal bowel sounds MSK: No joint erythema or tenderness NEURO: A&Ox3, no gross motor or sensory deficits, somnolent PSYCH: Normal mood and affect Labs/Imaging: LABS (last 24h) [retrieved for LEONCIO ROLLINS at 08 Sep 2017 16:06]: 139 102 19 < 374 Ca: 8.6 [09/08 @ 13:43] 4.1 26 1.68 141 104 17 < 199 Ca: 9.5 [09/08 @ 02:26] 3.9 27 1.58 Assessment/Plan: This is a 42yo male with a history of SAL cirrhosis s/p TIPS 2013, HTN, DM, HLD who was transferred from OSH for worsening abdominal pain and hepatic encephalopathy. The patient is active on the Transplant list. He left A from on 08/17 after admitted with HE and CARMEN possibly secondary to HRS. Hepatology is consulted with regards to outpatient cirrhosis management and specifically ARB continuation. 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 Consider nutrition consult for education and reinforcement. - Recommend avoidance of all NSAIDs due to risk of bleeding and renal failure. Tylenol can be used PRN for pain or fever (no more than 2 gm/day). - Recommend vaccinations for Hepatitis A and Hepatitis B if not immune. Can be done as an outpatient. - Can continue Coreg, no need to change to NSBB. Target goal MAP>=80mmHg optimally. - In the setting of advanced liver disease will not pursue TIPS revision at present. #CARMEN - Appears to be having worsening CARMEN. Recommend workup for possible causes per medicine - Recommend hydration with IVF or albumin for possible pre-renal CARMEN - Recommend holding MADAN inhibitor/ ARB in the setting of CARMEN. Can reconsider as outpatient if BP can tolerate Staffed with Dr. Friedman. Attestation: I saw and evaluated the patient with the resident/fellow. I discussed the case with the resident/fellow and agree with the findings and plan as documented. Electronic Signatures: Maren Friedman MD (Attending) (Signed 25-Sep-17 15:22) Authored: CRITICAL CARE CHARGING STATEMENT/ATTENDING ATTESTATION Co-Signer: CONSULTATION SERVICE, EVALUATION Phan Granda MD (Resident) (Signed 08-Sep-17 16:26) Authored: CONSULTATION SERVICE, EVALUATION Last Updated: 25-Sep-17 15:22 by Maren Friedman MD (Attending) * Social Care Assessment Summary - ProviderAmrit MD - 09/07/2017 12:00 AM EST Patient Name: CLARITZA ROLLINS Date of : 1975 Initial Evaluation Note Reason for Evaluation Reason for Evaluation Answers: discharge planning Living Situation Living Situation: Answers: adult child, Answers: spouse Dwelling Type: Answers: house - single floor Evaluation Evaluation: Notes: SW spoke with MDs this date re: pt's plan of care. According to MDs, this pt is not medically stable for D/C this date but may be stable for D/C within 72 hrs. SW spoke with pt and Meron ([phone]) at bedside for initial assessment. reports that the couple live with their 2 adult children in a single level house. The pt is normally fully independent with ADLs, except when he is confused or lethargic. The pt has a SC and RW at home, but no further DME/O2. Pt's is available for 24/ care at D/C if needed. PCP is [facility] Fournier in [place], and the pt's takes him to medical appointments. The pt will have transportation at D/C. The pt has not worked with any [facility] or inpt rehab. Local pharmacy is [facility] in [place], and ins. was verified as Michelle ESPANA. - No further SW concerns identified at this time. SW will continue to remain available and will follow up with D/C planning and needs as appropriate. Patient Assistance Who will provide assistance post-discharge? Answers: unable to assess at this time Needs TBD How many hours is/are the caregiver(s) available? Answers: other Needs TBD Patient Care Caregiver Answers: Patient has a primary care provider Presenting Mood/Behavior: Answers: altered mental status / confused Plan Case Management Plan: Answers: case reviewed, Answers: page with questions Notes: [phone], voalte [phone] Interdisciplinary Plan of Care: Answers: reviewed Plan for Discharge Services: Answers: unknown at this time Electronically signed by: Melody Jorge * ED Notes - Amrit Chan MD - 09/07/2017 12:00 AM EST General Information: Tobacco Screening: * Patient: Any Form of Tobacco Use in last 30 days?no... * Smoking History:Never smoker * Are there smokers that live in the patient's home?no * Does the patient have any regular exposure to second hand smoke?no Alcohol Screening: * ETOH Screen: How often in the past year did pt. drink beer, wine, distilled spirits?never Street Drug/Inhalent/Medication Use: * Street drug/inhalent/medication: How many times in the past year has the patient used an illlegaldrug or Rx medication for non medical reasons?never Suicide: Initial Screening Questions * In the past week including today, have you felt like life is not worth living?no * In the past week including today, have you wanted to kill yourself?no Vaccine Screening !: * Pneumococcal Vaccine Indications- all patients with ONE of the listed conditions. If the patient has none of the listed indications, select PATIENT HAS NO INDICATIONS FOR PNEUMOCOCCAL VACCINATION.patient has no indications for pneumococcal vaccination * Influenza vaccine indications: Is Current Flu Season?yes * CONTRAINDICATIONS to the Influenza vaccination. Select one contraindication, or if the patient has no contraindications, select PATIENT HAS NO CONTRAINDICATIONS TO INFLUENZA VACCINATIONpatient has no contraindications that would prevent the patient from recieving the flu vaccine * Patient meets criteria for influenza vaccinationPatient/Parent/Guardian Refuses Vaccine Activity/ Functional Level: Douglas Scale Evaluation: Douglas Score (Assess Every Shift): * Douglas(4) no impairment * Douglas Moisture(3) occasionally moist * Douglas Activity(4) walks frequently * Douglas Mobility(3) slightly limited * Douglas Nutrition(3) adequate * Douglas Friction and Shear(3) no apparent problem * Douglas Score 20 Patient's Learning Needs Assessment: Learning Assessment for Patient / Responsible green party: * Educational Levelhigh school * Factors that Impact Ability to Learnnone * Cultural Considerationsnone * Developmental Considerationsnone * Roman Catholic Considerationsnone Electronic Signatures: Celso Berkowitz RN (Nurse) (Signed 07-Sep-17 04:35) Authored: General Information, Activity/ Functional Level, Patient's Learning Needs Assessment Last Updated: 07-Sep-17 04:35 by Celso Berkowitz RN (Nurse) * H&P - ProviderAmrit MD - 09/07/2017 12:00 AM EST Document Topic: Service/ Team: MT3 - Medicine / Internal Medicine Team 3. History and Physical: - Chief Complaint: encephalopathy, abdominal pain History of Presenting Illness: 42yo M w/PMH of SAL cirrhosis s/p TIPS 2013, HTN, DM, HLD who was transferred from OSH for worsening abdominal pain and hepatic encephalopathy. He recently left A from on 08/17 after being hospitalized for similar presentation and was found to have hepatic encephalopathy and HRS. His and son report good compliance with both lactulose and rifaximin, however over the last few days he has been constipated with only 1 BM per day at most, despite increasing lactulose doses. His home lactulose dose was also recently decreased to 15ml 3-4 times daily per , which was to try and prevent dehydration. He also says that his spironolactone was discontinued by his liver doctor at his last visit. He is currently feeling better and less nauseous after receiving fluids at OSH, however still complains of severe abdominal pain. He denies any fevers, chills, headaches, vision changes, chest pain, shortness of breath, diarrhea,melena, blood in urine. ROS: 14-point review of systems is negative except what is listed in HPI. Past Medical Hx: SAL cirrhosis HTN DM HLD Cholelithiasis BPH Past Surgical Hx: banded esophageal varies TIPS 10/2016 Family Hx: Reviewed and non-contributory Social Hx: Denies tobacco, ETOH, drug use. Home Medications: [retrieved for LEONCIO ROLLINS at 07 Sep 2017 02:47]: Xifaxan 550 mg oral tablet 1 tab(s) orally 2 times a day carvedilol 25 mg oral tablet 1 tab(s) orally 2 times a day furosemide 40 mg oral tablet 1 tab(s) orally once a day losartan 50 mg oral tablet 1 tab(s) orally once a day gabapentin 600 mg oral tablet 1 tab(s) orally 3 times a day tiZANidine 4 mg oral tablet 1 tab(s) orally every 6 to 8 hours, As Needed Apidra 100 units/mL injectable solution injectable 3 times, As Needed Basaglar KwikPen 100 units/mL subcutaneous solution 40 unit(s) subcutaneous once a day (in the evening at 19:00) glimepiride 1 mg oral tablet 1 tab(s) orally once a day (in the morning) metFORMIN 1000 mg oral tablet 1 tab(s) orally 2 times a day ergocalciferol 50,000 intl units (1.25 mg) oral capsule 1 cap(s) orally once a week on monday esomeprazole 40 mg oral delayed release capsule 1 cap(s) orally once a day lactulose 10 g/15 mL oral syrup 30 milliliter(s) orally 3 times a day Take additional 1-2 doses if needed to achieve 3-4 bowel movements per day Allergy: Codeine->Other Flexeril->Other Objective: VITALS (last 24h) [retrieved for LEONCIO ROLLINS at 07 Sep 2017 02:47]: Tc: 36.9 Tmax: 36.9 @ Aug 00:00 Tf: 98.5 Tmax: 98.5 @ Aug 00:00 HR: 82 (82 - 83) BP: 169/93 (169/93 - 187/112) RR: 13 (8 - 20) SpO2: 96% (94% - 97%) unknown no weight recorded no height recorded LABS (last 24h) [retrieved for LEONCIO ROLLINS at 07 Sep 2017 02:47]: 142 105 17 < 202 Ca: 9.9 [09/06 @ 20:40] 4.2 24 1.20 WBC: 4.6 / Hb: 9.8 / Hct: 27.2 / Plt: 119 [09/06 @ 20:40] PT: 18.6 / PTT: x / INR: 1.5 [09/06 @ 20:40] AST: 50 / ALT: 23 / AlkPhos: 156 / Bili: 7.0 / Dir: 1.9 / Prot: 6.0 / Alb: 2.5 / Lip: 42 [09/06 @ 20:40] Physical Examination: BP 169/93 HR 82 R 13 T 98.5 (36.9) GEN: resting comfortably in bed, NAD HEENT: normocephalic, atraumatic, EOMI, mucous membranes moist CV: regular rate and rhythm, S1 and S2, no MRG. . no peripheral edema. pulses 2/2 equal and symmetric RESP: CTAB, no increased work of breathing ABD: soft, non-tender, mild distended, +BS MSK: full range of motion of all extremities, no gross motor deficit NEURO: awake, alert, oriented to person and place, +asterixis SKIN: warm, dry. No rashes, bruising, tattoos, cyanosis. PSYCH: normal mood and affect. 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 last EGD - HRS: Cr improved from previous discharge - transplant: transplant listed here and at [facility] - Patient does not have a history of prior jaundice, ascites, variceal hemorrhage - avoid of all NSAIDs due to risk of bleeding and renal failure. Tylenol can be used PRN for pain or fever (no more than 2 gm/day). - For spironolactone and lasix, recommend hold this for now as he was taken off at last clinic appt. #HTN - BP 169/93 - continue home coreg #DM - continue lantus + SSI #Chronic pain - continue home xanaflex - hold gabapentin due to potential for CARMEN F: PO E: replace as needed N: regular DVT ppx: lovenox Code status: full Disposition: admit to medicine I personally reviewed all labs, images, and/or procedures in the electronic health records. Laurence Rosario, PGY1 Pager: [phone] Home Medications: MedicationInstructionsStatusCommentSubmitted By carvedilol 25 mg oral tablet1 tab(s) orally 2 times a dayActiveBridgett Márquez RN lactulose 10 g/15 mL oral syrup30 milliliter(s) orally 3 times a day Take additional 1-2 doses if needed to achieve 3-4 bowel movements per day ActiveBridgett Márquez RN Xifaxan 550 mg oral tablet1 tab(s) orally 2 times a dayActiveBridgett Márquez RN gabapentin 600 mg oral tablet1 tab(s) orally 3 times a dayActiveOrly Ojeda ergocalciferol 50,000 intl units (1.25 mg) oral capsule1 cap(s) orally once a week on mondayActiveMeryc Sheppard MD furosemide 40 mg oral tablet1 tab(s) orally once a dayActiveSonja Gong esomeprazole 40 mg oral delayed release capsule1 cap(s) orally once a dayActiveDavid Lorditha metFORMIN 1000 mg oral tablet1 tab(s) orally 2 times a dayActiveAbbie Rodriguez PharmD glimepiride 1 mg oral tablet1 tab(s) orally once a day (in the morning)ActiveNgo, Aivy Basaglar KwikPen 100 units/mL subcutaneous otbitmsz48 unit(s) subcutaneous once a day (in the evening at 19:00)ActiveNgo, Aivy losartan 50 mg oral tablet1 tab(s) orally once a dayActiveNgo, Aivy Apidra 100 units/mL injectable solutioninjectable 3 times, As BunefmVmtjyr844- 150: 3 units 150-200: 6 units 200-300: 9 units > 300: 12 units Johns, Aivy tiZANidine 4 mg oral tablet1 tab(s) orally every 6 to 8 hours, As NeededActiveNgo, Aivy ATTENDING ATTESTATION: Attestation: I saw and evaluated the patient. I discussed the case with the resident/fellow and agree with the findings and plan as documented. Electronic Signatures: Laurence Rosario DO (Resident) (Signed 07-Sep-17 03:55) Authored: DOCUMENT TOPIC, EVALUATION Dom Mosley MD (Attending) (Signed 07-Sep-17 05:27) Authored: ATTENDING ATTESTATION Co-Signer: DOCUMENT TOPIC, EVALUATION Last Updated: 07-Sep-17 05:27 by Dom Mosley MD (Attending) * Consults - Amrit Chan MD - 09/07/2017 12:00 AM EST Consultation Service: Service/ Team: [facility] - Surgery / Liver Transplant. Requesting Attending Physician: Genevieve Lovell MD(Attending): Attending, Medicine - Internal, Medicine Chief Complaint: Requesting Jack/ Genevieve Lovell Reason for Consultlisted for liver transplant Consult Note: - Chief Complaint: encephalopathy, abdominal pain History of Presenting Illness: 42yo M w/PMH of SAL cirrhosis s/p TIPS 2013, HTN, DM, HLD who was transferred from OSH for worsening abdominal pain and hepatic encephalopathy. Currently listed active for liver transplant. He recently left A from on 08/17 after being hospitalized for similar presentation and was found to have hepatic encephalopathy and HRS. His and son report good compliance with both lactulose and rifaximin, however over the last few days he has been constipated with only 1 BM per day at most, despite taking lactulose 4 times daily. Most recently at his Transplant Hepatology appointment, he was advised to increase lactulose until achieving 2-3 soft movements daily.his diuretics have been held forA K I. He is currently feeling better and less nauseous after receiving fluids at OSH, however still complains of severe abdominal pain. He states his abdominal pain in the right lower quadrant is unchanged from his chronic pain. He is expressing nausea but no emesis. He is also complaining of shoulder and back pain. He reports feeling weak and tremulous. He denies any fevers, chills, headaches, vision changes, chest pain, shortness of breath, diarrhea,melena, blood in urine. ROS: 14-point review of systems is negative except what is listed in HPI. Past Medical Hx: SAL cirrhosis HTN DM HLD Cholelithiasis BPH Past Surgical Hx: banded esophageal varies TIPS 10/2016 Family Hx: Reviewed and non-contributory Social Hx: Denies tobacco, ETOH, drug use. Vitals:VITALS (last 24h) [retrieved for LEONCIO ROLLINS at 07 Sep 2017 16:51]: Tc: 36.9 Tmax: 36.9 @ Aug 13:40 Tf: 98.4 Tmax: 98.5 @ Aug 00:00 HR: 83 (81 - 87) BP: 134/74 (134/74 - 187/112) RR: 21 (8 - 21) SpO2: 97% (94% - 97%) Labs: LABS (last 24h) [retrieved for LEONCIO ROLLINS at 07 Sep 2017 16:51]: 143 105 17 < 246 Ca: 9.9 [09/07 @ 04:40] 4.3 24 1.38 WBC: 4.0 / Hb: 9.4 / Hct: 26.4 / Plt: 118 [09/07 @ 04:40] PT: 17.9 / PTT: x / INR: 1.4 [09/07 @ 04:40] AST: 50 / ALT: 21 / AlkPhos: 145 / Bili: 6.8 / Prot: 5.7 / Alb: 2.2 [09/07 @ 04:40] 142 105 17 < 202 Ca: 9.9 [09/06 @ 20:40] 4.2 24 1.20 WBC: 4.6 / Hb: 9.8 / Hct: 27.2 / Plt: 119 [09/06 @ 20:40] PT: 18.6 / PTT: x / INR: 1.5 [09/06 @ 20:40] AST: 50 / ALT: 23 / AlkPhos: 156 / Bili: 7.0 / Dir: 1.9 / Prot: 6.0 / Alb: 2.5 / Lip: 42 [09/06 @ 20:40] imaging: REQUESTING PHYSICIAN: UVALDO PAT REASON FOR EXAMINATION/PROCEDURE: RAD PDP:Y * Abdominal Pain EXAMINATION / PROCEDURE: CT Abdomen and Pelvis W IVCON Sep 06 2017 - 21:48; CLINICAL INDICATION: Abdominal pain. TECHNIQUE: Imaging of the abdomen and pelvis was performed, from lung bases through pubic symphysis, using spiral technique, following administration of IV contrast, Omnipaque 300, 100 mL. Delayed (excretory phase) images were performed through the kidneys. Reformatted images in the coronal and sagittal planes were generated from the axial data set to facilitate diagnostic accuracy. Total DLP (Dose-Length Product): 915.60 mGy.cm. Please note: The reported value represents the total of one or more individual components during the CT acquisition on this date and at this time, and as such, the same value may appear in more than one CT report depending on the interpreting/reporting physicians. COMPARISON: CT abdomen and pelvis 03/06/2017. FINDINGS: Lung Bases: The lung bases are clear. Liver/Gallbladder/Biliary system: Cirrhotic changes of the liver. Unchanged low density subcentimeter left hepatic lesions. Post TIPS. Multiple calcified gallstones with cylindrical fat-containing partially calcified gallstones. No intra- or extra-hepatic biliary ductal dilatation. Spleen: The spleen again measures at the upper limits of normal at 13 cm in craniocaudal dimension. Pancreas: The pancreas enhances homogeneously. Adrenals: The adrenals are morphologically unremarkable. Kidneys: The kidneys demonstrate symmetric nephrogram and excretion. No renal or ureteral calculi. No hydronephrosis. Bowel/Mesentery: The small bowel loops are not dilated. The largebowel loops are not dilated. The appendix is visualized and normal. Vessels/Lymph Nodes: Portosystemic collaterals are present. The abdominal aorta is unremarkable. No lymphadenopathy within the abdomen or pelvis. Fluid Survey: No free fluid in the abdomen. No free fluid in the pelvis. Pelvis: The pelvic viscera are unremarkable. Body Wall: Normal. Bones: No acute fracture. Degenerative changes at L5-S1 with vacuum disc and subchondral sclerosis. Grade 1 anterolisthesis of L5on S1. IMPRESSION: . No acute findings in the abdomen or pelvis at this time. 2. Cirrhosis with findings of portal hypertension. 3. Cholelithiasis. CRITICAL RESULT: No. COMMUNICATION: Per this written report. By electronically signing this report, I, the attending physician, attest that I have personally reviewed the images/data for the above examination(s) and agree with the final edited report. Verified by: LEONCIO MOSLEY M.D. on Sep 06 2017 10:14P Transcribedby: DOMINIK on Sep 06 2017 9:52P Dictated by: SRINATH CURRY M.D. on Sep 06 2017 9:52P PE: Gen: No acute distress or discomfort. Awake and alert, answering questions appropriately. Laying onstretcher HEENT: Head atraumatic, normocephalic. PERRL. EOMI. Sclera icteric, conjunctiva pink. Mucous membranes pink, moist, intact. No oral lesions. NECK-- Supple, trachea midline, no JVD, no lymphadenopathy. Lungs: Respirations even & unlabored. Bilateral chest excursion noted. CTA bilaterally. No wheezes, rhonchi or rales. CV: RRR, normal S1 and S2. No M/R/G. No edema. 2+ radial DP, PT pulses bilaterally GI: +BS, Soft, nontender, nondistended, no masses palpable. No rebound tenderness or rigidity. Skin: Jaundiced, warm, CDI. No rashes or bruising. Neuro: Alert and oriented x 4. GCS 15. Speech clear. Psychological: Normal mood and affect. Agreeable to care Assessment and plan: 42yo M w/PMH of SAL cirrhosis s/p TIPS 2013, HTN, DM, HLD who was transferred from OSH for worsening abdominal pain and hepatic encephalopathy. Currently listed active for liver transplant. MELD 21 It was discovered during a previous admission on August 12, the patient left the hospital AGAINSTMEDICAL ADVICE despite being advised by the internal medicine provider that his risks of leaving AMA included possibly affecting his liver transplant standing. It is recorded that the patient stated he wanted to leave so that he could be closer to his at home. We will ask our social and political studies professor to reassess the patient at his next transplant hepatology clinic visit. He should follow-up with transplant hepatology clinic 2 weeks after discharge. SAL cirrhosis - MELD 21 -Status post TIPS -Consider consulting transplant hepatology about possible medication changes as patient is activelylisted for transplant Hepatic encephalopathy -Blood cultures are pending. It appears that urine still has not been collected. -Please obtain liver ultrasound to assess for possible portal vein thrombosis. -Consider IR for diagnostic paracentesis - continue rifaximin and lactulose, including lactulose enemas Chronic abdominal pain -CT abdomen and pelvis with no acute changes Management per primary team. Thank you for allowing us to participate in this patient's care, please call with questions. This patient was seen by the [employer]. I did not see the patient at this visit, but I have reviewed andagree with the plan of treatment. Electronic Signatures: Manolo Christina MD (Attending) (Signed 11-Sep-17 11:37) Authored: CRITICAL CARE CHARGING STATEMENT/ATTENDING ATTESTATION Co-Signer: CONSULTATION SERVICE, EVALUATION Sandrita Ferguson APRN (Nurse Practitioner) (Signed 07-Sep-17 17:05) Authored: CONSULTATION SERVICE, EVALUATION Last Updated: 11-Sep-17 11:37 by Manolo Christina MD (Attending) * ED Notes - Amrit Chan MD - 09/06/2017 12:00 AM EST Registration:: ED Presentation: * ED Arriva Date & Time:06-Sep-2017 19:59 * Reason for Visit:Liver failure Disposition: : Boarding Evaluation: * Will this patient be boarding in the ED?yes * What location is the patient boarding for?Floor Electronic Signatures: Parker Choi RN (Nurse) (Signed 06-Sep-17 22:44) Authored: Disposition: Robert Gregg (Clerical Staff) (Signed 06-Sep-17 20:03) Authored: Registration: Last Updated: 06-Sep-17 22:44 by Parker Choi RN (Nurse) * ED Notes - Amrit Chan MD - 09/06/2017 12:00 AM EST Triage Presentation: * ED Arriva Date & Time:06-Sep-2017 19:59(1) Triage Initial: * Triage Time:06-Sep-2017 20:15 * Chief Complaintabdominal pain * Mode of Arrivalambulance * Transferred From :Transfer from ED Chief Complaint Information: * History of Present IllnessPt presents to ED complaining of abdominal pain and weakness. Per report pt has SAL cirrhosis and is on liver transplant list. Pt EMV 14 upon arrival. Primary Care Physician (PCP): * PCP contacted? No. Home Medications: MedicationInstructionsStatusCommentSubmitted By carvedilol 25 mg oral tablet1 tab(s) orally 2 times a dayActiveBridgett Márquez RN lactulose 10 g/15 mL oral syrup30 milliliter(s) orally 3 times a day Take additional 1-2 doses if needed to achieve 3-4 bowel movements per day ActiveBridgett Márquez RN Xifaxan 550 mg oral tablet1 tab(s) orally 2 times a dayActiveBridgett Márquez RN gabapentin 600 mg oral tablet1 tab(s) orally 3 times a dayActiveOrly Ojeda ergocalciferol 50,000 intl units (1.25 mg) oral capsule1 cap(s) orally once a week on mondayActiveMercy Sheppard MD furosemide 40 mg oral tablet1 tab(s) orally once a dayActiveSonja Gong esomeprazole 40 mg oral delayed release capsule1 cap(s) orally once a dayActiveMonse Lord metFORMIN 1000 mg oral tablet1 tab(s) orally 2 times a dayActiveAbbie Rodriguez PharmD glimepiride 1 mg oral tablet1 tab(s) orally once a day (in the morning)ActiveNgo, Aivy Basaglar KwikPen 100 units/mL subcutaneous sktlvimm16 unit(s) subcutaneous once a day (in the evening at 19:00)ActiveNgo, Aivy losartan 50 mg oral tablet1 tab(s) orally once a dayActiveNgo, Aivy Apidra 100 units/mL injectable solutioninjectable 3 times, As LvaljcRvwyzh142- 150: 3 units 150-200: 6 units 200-300: 9 units > 300: 12 units Johns, Aivy tiZANidine 4 mg oral tablet1 tab(s) orally every 6 to 8 hours, As NeededActiveNgo, Aivy Vital Sign Assessment: * Systolic 187 mm Hg * Diastolic 112 mm Hg * BP Noninvasive Zgqa773 mm Hg * Temperature F98.2 degrees F * Temperature Jdbfeab98.77 degrees C * Temperatureoral * Heart Rate83 bpm * Respiratory Rate20 breaths per minute * Pulse Oximetry SpO2 (%)97 percent hemoglobin Heth Coma Scale: Heth Coma Scale: * GCS - Best Eye Response4= spontaneous * GCS - Best Motor Response6= obeys commands * GCS - Best Verbal Response4= confused * Marcio Coma Scale14 Primary Evaluation: Additional Triage Assessment: * Pain Rating (0-10):5 Allergies: Allergen/ProductAllergen TypeReactionStatusDescription * CodeineDrugOtherActivehyperactivity with anxiety * FlexerilDrugOtherActive General Information: Home Medications: MedicationInstructionsStatusCommentSubmitted By carvedilol 25 mg oral tablet1 tab(s) orally 2 times a dayActiveBridgett Márquez RN lactulose 10 g/15 mL oral syrup30 milliliter(s) orally 3 times a day Take additional 1-2 doses if needed to achieve 3-4 bowel movements per day Bridgett Goldberg RN Xifaxan 550 mg oral tablet1 tab(s) orally 2 times a dayActiveBridgett Márquez RN gabapentin 600 mg oral tablet1 tab(s) orally 3 times a dayActiveOrly Ojeda ergocalciferol 50,000 intl units (1.25 mg) oral capsule1 cap(s) orally once a week on mondayActiveMercy Sheppard MD furosemide 40 mg oral tablet1 tab(s) orally once a dayActiveSonja Gong esomeprazole 40 mg oral delayed release capsule1 cap(s) orally once a dayActiveMonse Lord metFORMIN 1000 mg oral tablet1 tab(s) orally 2 times a dayActiveAbbie Rodriguez PharmD glimepiride 1 mg oral tablet1 tab(s) orally once a day (in the morning)ActiveNgo, Aivy Basaglar KwikPen 100 units/mL subcutaneous xwsqxzod83 unit(s) subcutaneous once a day (in the evening at 19:00)ActiveNgo, Aivy losartan 50 mg oral tablet1 tab(s) orally once a dayActiveNgo, Aivy Apidra 100 units/mL injectable solutioninjectable 3 times, As JwjdljHdyyfy882- 150: 3 units 150-200: 6 units 200-300: 9 units > 300: 12 units Johns, Aivy tiZANidine 4 mg oral tablet1 tab(s) orally every 6 to 8 hours, As NeededActiveNgo, Aivy * Current Medications:see medication reconcilliation sheet Acuity: * Acuity:3 Triage Completion Time: * Triage Completion [id number] 20:18 Electronic Signatures: Vera Bella RN (Nurse) (Signed 06-Sep-17 20:18) Authored: Triage Presentation, Primary Evaluation, General Information Last Updated: 06-Sep-17 20:18 by Vera Bella RN (Nurse) References: 1. Data Referenced From ED Registration/Disposition Note 09/06/2017 8:02 PM * ED Notes - Uvaldo Pat - 09/06/2017 12:00 AM EST Evaluation: - CHIEF COMPLAINT: abdominal pain HISTORY OF PRESENT ILLNESS: LEONCIO ROLLINS is a 42y male w/ a hx of SAL cirrhosis, Guillan-Lowell syndrome, HTN, DM, cholelithiasis, and fatty liver who presents to the ED as a transfer from [facility] complaining of diffuse abdominal pain and generalized weakness. The patient labs from the OSH reveal that he has a hemoglobin -10.1; WBC -4.4; platelets -132; hematocrit - 28.9; BUN -17; creatinine -1.5; total bilirubin -7.5; and a NH4+ -128. The patient reports that he has nausea. The patient presents significantly jaundiced and his son states that the despite the patient taking his lactulose as prescribed that given the degree of his cirrhosis the patient's body is no longer responding well to the medication and his ammonia levels remain high. The patient denies having had a CT-scan of his abdomen today at the OSH. The patient is still able to produce urine. The patientdenies any hematuria or dark, tarry stools. The patient denies having ever required paracentesis. The patient denies any history of surgeries. The patient denies any fever, chills, emesis, diarrhea, constipation, SOA, CP, MACK, or any urinary changes. PAST MEDICAL HISTORY: SAL cirrhosis, on liver transplant list, DM, Guillan- Lowell syndrome, cholelithiasis, fatty liver, BPH, hypertension, esophageal varices PAST SURGICAL HISTORY: Esophageal variceal banding MEDICINES: Reviewed. ALLERGIES: Codeine->Other Flexeril->Other SOCIAL HISTORY: Negative for current tobacco, alcohol, or recreational drug use FAMILY MEDICAL HISTORY: Non-contributory REVIEW OF SYSTEMS: Positive per HPI, otherwise 14 point review of systems negative. VITALS: VITALS (last 24h) [retrieved for LEONCIO ROLLINS at 06 Sep 2017 20:27]: Tc: 36.8 Tmax: 36.8 @ Aug 20:15 Tf: 98.2 Tmax: 98.2 @ Aug 20:15 HR: 83 (83 - 83) BP: 187/112 (187/112 - 187/112) RR: 20 (20 - 20) SpO2: 97% (97% - 97%) PHYSICAL EXAM: GENERAL: The patient is a pleasant, jaundiced, middle-aged male who is alert, oriented, and is in no acute distress. HEENT: atraumatic, normocephalic. Sclera Icterus. PERRL, EOMI, Ears, nose, and throat unremarkable. NECK: supple BACK: non-tender to cervical, thoracic, lumbar spine. No stepoffs. CHEST: Nontender with no deformity HEART: Regular rhythm with no murmurs, gallops, or rubs. LUNGS: Clear bilaterally with normal effort and adequate air movement. No wheezes, rales, or rhonchi. ABDOMEN: Soft, diffusely tender throughout, non-distended, + bowel sounds. No rigidity or peritonitis. No guarding or rebounding. EXTREMITIES: Moving all four extremities with full strength, no acute deformity or joint effusions.No cyanosis or edema. SKIN: Jaundiced. PSYCH: Appropriate. No suicidal or homicidal ideation. NEURO: GCS 15. Cranial nerve 2-12 and peripheral sensory, motor, and cerebellar function grossly intact. LABS AND IMAGING: Reviewed and interpreted ED COURSE / MDM : Patient seen and evaluated with Dr. Pat. In summary this is a 42-year-old malewho presents to emergency department for evaluation of abdominal pain, concern for hepatic encephalopathy. Repeat laboratory evaluation obtained. Patient's laboratory evaluation significant for elevated lactate at 3.1, elevated INR 1.5, elevated PTT of 41, hyperbilirubinemia at 7.0. CT scan of patient's abdomen and pelvis was evaluated and showed no acute findings. Patient's family members reportthe patient has had decreased dosage of his lactulose after his prior admission and discharge however they report increased usage of this lactulose without any benefit. Given patient's significantly e levated ammonia, suspect this is the etiology for his encephalopathy. Case was discussed with internal medicine service, patient will be admitted. Patient is given members are agreeable to the plan as stated without further questions. IMPRESSION: #1 acute hepatic encephalopathy DISPOSITION: Admit Resident Attestation: The documentation recorded by the scribe, Humza Hurd, accurately reflects the service I personally performed and the decisions made by me. Noel Henry MD Date/Time: 06 September 2017 20:27 Entered by Humza Hurd, acting as scribe for Dr. Henry. Attending Attestation: I saw the patient with the resident. I discussed the case with the resident and agree with the resident's findings and plan as documented in the resident's note. Electronic Signatures: Uvaldo Pat MD (Attending) (Signed 06-Oct-17 02:06) Authored: ATTENDING ATTESTATION/ CRITICAL CARE CHARGING Co-Signer: EVALUATION Humza Hurd (Scribe) (Signed 06-Sep-17 20:41) Authored: EVALUATION Noel Henry MD (Resident) (Signed 06-Sep-17 22:19) Authored: EVALUATION Co-Signer: EVALUATION Last Updated: 06-Oct-17 02:06 by Uvaldo Pat MD (Attending) documented in this encounter Plan of Treatment Not on file documented as of this encounter Procedures Procedure Name Priority Date/Time Associated Diagnosis Comments GLUCOSE POINT OF CARE DC Routine 09/10/2017 11:29 AM EST GLUCOSE POINT OF CARE DC Routine 09/10/2017 7:32 AM EST PROTHROMBIN TIME(PT) / INR Routine 09/10/2017 4:12 AM EST CBC W/O DIFFERENTIAL Routine 09/10/2017 4:12 AM EST PHOSPHORUS, PLASMA Routine 09/10/2017 4: 12 AM EST MAGNESIUM, PLASMA Routine 09/10/2017 4:1 2 AM EST COMPREHENSIVE METABOLIC PANEL, PLASMA Routine 09/10/2017 4:12 AM EST GLUCOSE POINT OF CARE DC Routine 09/09/2017 8:17 PM EST GLUCOSE POINT OF CARE DC Routine 09/09/2017 3:45 PM EST GLUCOSE POINT OF CARE DC Routine 09/09/2017 11:27 AM EST SODIUM, URINE, RANDOM Routine 09/09/2017 8:47 AM EST CREATININE, RANDOM URINE Routine 09/09/2017 8:47 AM EST SODIUM, URINE, RANDOM Routine 09/09/2017 8:15 AM EST CREATININE, RANDOM URINE Routine 09/09/2017 8:15 AM EST URINALYSIS WITH REFLEX MICROSCOPIC Routine 09/09/2017 8:15 AM EST GLUCOSE POINT OF CARE DC Routine 09/09/2017 8:12 AM EST GLUCOSE POINT OF CARE DC Routine 09/09/2017 3:31 AM EST BASIC METABOLIC PANEL, PLASMA Routine 09/09/2017 3:22 AM EST GLUCOSE POINT OF CARE DC Routine 09/08/2017 9:38 PM EST GLUCOSE POINT OF CARE DC Routine 09/08/2017 4:38 PM EST BASIC METABOLIC PANEL, PLASMA STAT 09/08/2017 1:43 PM EST GLUCOSE POINT OF CARE DC Routine 09/08/2017 11:18 AM EST GLUCOSE POINT OF CARE DC Routine 09/08/2017 7:35 AM EST EXTRA TUBES Routine 09/08/2017 2:41 AM EST LACTATE, VENOUS Routine 09/08/2017 2:26 AM EST BASIC METABOLIC PANEL, PLASMA Routine 09/08/2017 2:26 AM EST US ABDOMEN DOPPLER LIMITED Routine 09/08/2017 12:48 AM EST URINALYSIS WITH REFLEX MICROSCOPIC Routine 09/08/2017 12:08 AM EST GLUCOSE POINT OF CARE DC Routine 09/07/2017 9:17 PM EST GLUCOSE POINT OF CARE DC Routine 09/07/2017 7:11 AM EST LACTATE, VENOUS Routine 09/07/2017 4:40 AM EST BLOOD CULTURE (AEROBIC/ANAEROBIC SET) Routine 09/07/2017 4:40 AM EST BLOOD CULTURE (AEROBIC/ANAEROBIC SET) Routine 09/07/2017 4:40 AM EST PROTHROMBIN TIME(PT) / INR Routine 09/07/2017 4:40 AM EST CBC W/O DIFFERENTIAL Routine 09/07/2017 4:40 AM EST COMPREHENSIVE METABOLIC PANEL, PLASMA Routine 09/07/2017 4:[address] ABDOMEN PELVIS W IV CONTRAST Routine 09/06/2017 9:48 PM EST LACTATE, VENOUS STAT 09/06/2017 8:40 PM EST WBC DIFFERENTIAL STAT 09/06/2017 8:40 PM EST APTT STAT 09/06/2017 8:40 PM EST PROTHROMBIN TIME(PT) / INR STAT 09/06/2017 8:40 PM EST CBC W/O DIFFERENTIAL STAT 09/06/2017 8:40 PM EST LIPASE, PLASMA STAT 09/06/2017 8:40 PM EST CONJUGATED BILIRUBIN, PLASMA STAT 09/06/2017 8:40 PM EST COMPREHENSIVE METABOLIC PANEL, PLASMA STAT 09/06/2017 8:40 PM EST AMMONIA, PLASMA STAT 09/06/2017 8:36 PM EST documented in this encounter Results * (ABNORMAL) Glucose Point of Care. (09/10/2017 11:29 AM EST) POCT Glucose 191(H) 74 - 99 mg/dL SUNQUEST Comment:Whole Blood 09/10/2017 11:2 9 AM EST 09/10/2017 11:32 AM EST Genevieve Lovell MD LAB BLOOD ORDERABLES Final Result Performing Organization Address [facility] de Phone Number SUNQUEST * (ABNORMAL) Glucose Point of Care. (09/10/2017 7:32 AM EST) POCT Glucose 155(H) 74 - 99 mg/dL SUNQUEST Comment:Whole Blood 09/10/2017 7:32 AM EST 09/10/2017 7:31 AM EST Genevieve Lovell MD LAB BLOOD ORDERABLES Final Result Performing Organization Address [facility] Co de Phone Number SUNQUEST * (ABNORMAL) Prothrombin Time/INR (09/10/2017 4:12 AM EST) Prothrombin Time 19.8(H) 12.3 - 14.8 sec SUNQUEST INR 1.6(H) 0.9 - 1.1 SUNQUEST Comment: (NOTE) OPTIMAL INR RANGES FOR PATIENT ON ORAL ANTICOAGULANT THERAPY Prevention of venous thromboembolism ?INR 2.0 to 3.0 In patients with heart disease: ?Atrial fibrillation ?INR 2.0 to 3.0 ?Valvular heart disease ? INR 2.0 to 3.0 ?Tissue heart valves ?INR 2.0 to 3.0 ?Mechanical prosthetic valves ? INR 2.5 to 3.5 ?Prevention of recurrent MA ? INR 2.5 to 3.5 09/10/2017 4:12 AM EST 09/10/2017 4:33 AM EST us Sancho Dwyer MD LAB BLOOD ORDERABLES Final Res ult Performing Organization Address [facility] Phone Number SUNQUEST * (ABNORMAL) Phosphorus, Plasma (09/10/2017 4:12 AM EST) Phosphorus, Plasma 4.7(H) 2.5 - 4.5 mg/dL SUNQUEST 09/10/2017 4:12 AM EST 09/10/2017 4:36 AM EST us Sancho Dwyer MD LAB BLOOD ORDERABLES Final Res ult Performing Organization Address [facility] Phone Number SUNQUEST * Magnesium, Plasma (09/10/2017 4:12 AM EST) Magnesium, Plasma 2.1 1.9 - 2.4 mg/dL SUNQUEST 09/10/2017 4:12 AM EST 09/10/2017 4:36 AM EST us Sancho Dwyer MD LAB BLOOD ORDERABLES Final Res ult Performing Organization Address [facility] Phone Number SUNQUEST * (ABNORMAL) Comprehensive Metabolic Panel, Plasma (09/10/2017 4:12 AM EST) Glucose, Plasma 146(H) 74 - 99 mg/dL SUNQUEST BUN, Plasma 30(H) 7 - 21 mg/dL SUNQUEST Creatinine, Plasma 2.77(H) 0.80 - 1.30 mg/dL SUNQUEST BUN/Creatinine Ratio 11 8 - 20 SUNQUEST Sodium, Plasma 140 136 - 145 mmol/L SUNQUEST Potassium, Plasma 4.2 3.7 - 4.8 mmol/L SUNQUEST Chloride, Plasma 102 101 - 108 mmol/L SUNQUEST CO2, Plasma 25 22 - 29 mmol/L SUNQUEST Anion Gap 13 6 - 16 mmol/L SUNQUEST Calcium, Plasma 9.2 8.9 - 10.2 mg/dL SUNQUEST AST, Plasma 42(H) 12 - 40 U/L SUNQUEST ALT, Plasma 23 11 - 41 U/L SUNQUEST Alkaline Phosphatase, Plasma 133(H) 40 - 115 U/L SUNQUEST Total Bilirubin, Plasma 5.3(H) 0.2 - 1.1 mg/dL SUNQUEST Total Protein 5.5(L) 6.3 - 7.9 g/dL SUNQUEST Albumin, Plasma 2.3(L) 3.3 - 4.6 g/dL SUNQUEST eGFR 25(L) >60 SEE NOTE SUNQUEST eGFR, if AFR/AM 30(L) >60 SEE NOTE SUNQUEST Comment: (NOTE) eGFR = estimated GFR; eGFR units = mL/min/1.73 sq meters Chronic Kidney Disease is considered if eGFR <60 mL/min/1.73 sq meters Kidney failure is considered if eGFR is <15 mL/min/1.73 sq meters. eGFR assumes steady state plasma creatinine concentration; not applicable if renal function is rapidly changing or patient is on dialysis. 09/10/2017 4:12 AM EST 09/10/2017 4:36 AM EST us Sancho Dwyer MD LAB BLOOD ORDERABLES Final Res ult MOHINDER * (ABNORMAL) CBC W/O Differential (09/10/2017 4:12 AM EST) WBC Count 5.6 3.7 - 10.3 k/uL SUNQUEST RBC Count 2.41(L) 4.6 - 6.1 M/uL SUNQUEST HGB 8.9(L) 13.7 - 17.5 g/dL SUNQUEST HCT 25.0(L) 40 - 51 % SUNQUEST Platelet Count 103(L) 155 - 369 k/uL SUNQUEST MCV 104(H) 79 - 98 fL SUNQUEST MCH 36.9(H) 26 - 32 pg SUNQUEST MCHC 35.6(H) 30.7 - 35.5 g/dL SUNQUEST RDW 16.3(H) 12.4 - 14.9 % SUNQUEST MPV 11.4 8.8 - 12.5 fL SUNQUEST NRBC COUNT 0 0 % SUNQUEST 09/10/2017 4:12 AM EST 09/10/2017 4:32 AM EST Sancho Dwyer MD LAB BLOOD ORDERABLES Final Res ult Performing Organization Address [facility] Co de Phone Number SUNQUEST * (ABNORMAL) Glucose Point of Care. (09/09/2017 8:17 PM EST) POCT Glucose 273(H) 74 - 99 mg/dL SUNQUEST Comment:Whole Blood 09/09/2017 8:17 PM EST 09/09/2017 8:16 PM EST Genevieve Lovell MD LAB BLOOD ORDERABLES Final Result Performing Organization Address [facility] de Phone Number SUNQUEST * (ABNORMAL) Glucose Point of Care. (09/09/2017 3:45 PM EST) POCT Glucose 366(H) 74 - 99 mg/dL SUNQUEST Comment:Whole Blood 09/09/2017 3:45 PM EST 09/09/2017 3:46 PM EST Genevieve Lovell MD LAB BLOOD ORDERABLES Final Result Performing Organization Address [facility] Co de Phone Number SUNQUEST * (ABNORMAL) Glucose Point of Care. (09/09/2017 11:27 AM EST) POCT Glucose 306(H) 74 - 99 mg/dL SUNQUEST Comment:Whole Blood 09/09/2017 11:2 7 AM EST 09/09/2017 11:28 AM EST us Genevieve Lovell MD LAB BLOOD ORDERABLES Final Result Performing Organization Address [facility] Phone Number SUNQUEST * Sodium, Random, Urine (09/09/2017 8:47 AM EST) Sodium, Urine <20 mmol/L SUNQUEST 09/09/2017 8:47 AM EST 09/09/2017 8:47 AM EST us Sancho Dwyer MD LAB URINE ORDERABLES Final Res ult Performing Organization Address [facility] Phone Number SUNQUEST * Creatinine, Random, Urine (09/09/2017 8:47 AM EST) Creatinine, Random U 208 mg/dL SUNQUEST 09/09/2017 8:47 AM EST 09/09/2017 8:47 AM EST us Sancho Dwyer MD LAB URINE ORDERABLES Final Res ult Performing Organization Address [facility] Phone Number SUNQUEST * Sodium, Random, Urine (09/09/2017 8:15 AM EST) Sodium, Urine IMPROPER SPECIMEN. RECOLLECT REQUESTED. mmol/L SUNQUEST 09/09/2017 8:15 AM EST 09/09/2017 8:40 AM EST us Sancho Dwyer MD LAB URINE ORDERABLES Final Res ult Performing Organization Address [facility] de Phone Number SUNQUEST * Creatinine, Random, Urine (09/09/2017 8:15 AM EST) Creatinine, Random U IMPROPER SPECIMEN. RECOLLECT REQUESTED. mg/dL SUNQUEST 09/09/2017 8:15 AM EST 09/09/2017 8:40 AM EST us Sancho Dwyer MD LAB URINE ORDERABLES Final Res ult Performing Organization Address [facility] Co de Phone Number SUNQUEST * (ABNORMAL) Urinalysis with reflex microscopic (09/09/2017 8:15 AM EST) Color, Urine DARK YELLOW SUNQUEST Clarity, Urine CLEAR SUNQUEST Spec [place], Urine 1.021 1.001 - 1.030 SUNQUEST pH, Urine 5.0 4.5 - 8.0 SUNQUEST Protein, Urine 30(A) NEG mg/dL SUNQUEST Glucose, Urine NEGATIVE NEG mg/dL SUNQUEST Ketones, Urine TRACE(A) NEG mg/dL SUNQUEST Blood, Urine TRACE(A) NEG SUNQUEST Bilirubin, Urine SMALL(A) NEG SUNQUEST Urobilinogen, Urine > OR = 1.0 0.2 - 1.0 EU/dL SUNQUEST Leukocytes, Urine NEGATIVE NEG SUNQUEST Nitrite, Urine NEGATIVE NEG SUNQUEST Microscopic Description . SUNQUEST RBC, Urine 0-3 0 - 3 /HPF SUNQUEST WBC, Urine 11-15 0 - 5 /HPF SUNQUEST Squamous Epithelial 0-5 0 - 5 /HPF SUNQUEST Transitional Epithelial Cells 0-2 /HPF SUNQUEST Hyaline Casts 16-30 0 - 8 /LPF SUNQUEST Amorphous Urate Crystals CALCIUM OXALATE CRYSTALS PRESENT. Present SUNQUEST Mucus Present SUNQUEST 09/09/2017 8:15 AM EST 09/09/2017 8:34 AM EST us Sancho Dwyer MD LAB URINE ORDERABLES Final Res ult Performing Organization Address [facility] de Phone Number SUNQUEST * (ABNORMAL) Glucose Point of Care. (09/09/2017 8:12 AM EST) POCT Glucose 244(H) 74 - 99 mg/dL SUNQUEST Comment:Whole Blood 09/09/2017 8:12 AM EST 09/09/2017 8:13 AM EST Genevieve Lovell MD LAB BLOOD ORDERABLES Final Result Performing Organization Address [facility]/ZIP Co de Phone Number SUNQUEST * (ABNORMAL) Glucose Point of Care. (09/09/2017 3:31 AM EST) POCT Glucose 195(H) 74 - 99 mg/dL SUNQUEST Comment:Whole Blood 09/09/2017 3:31 AM EST 09/09/2017 3:32 AM EST Genevieve Lovell MD LAB BLOOD ORDERABLES Final Result SUNQUEST * (ABNORMAL) Basic Metabolic Panel, Plasma (09/09/2017 3:22 AM EST) Glucose, Plasma 206(H) 74 - 99 mg/dL SUNQUEST BUN, Plasma 24(H) 7 - 21 mg/dL SUNQUEST Creatinine, Plasma 2.61(H) 0.80 - 1.30 mg/dL SUNQUEST BUN/Creatinine Ratio 9 8 - 20 SUNQUEST Sodium, Plasma 139 136 - 145 mmol/L SUNQUEST Potassium, Plasma 4.1 3.7 - 4.8 mmol/L SUNQUEST Chloride, Plasma 101 101 - 108 mmol/L SUNQUEST CO2, Plasma 26 22 - 29 mmol/L SUNQUEST Anion Gap 12 6 - 16 mmol/L SUNQUEST Calcium, Plasma 9.0 8.9 - 10.2 mg/dL SUNQUEST eGFR 27(L) >60 SEE NOTE SUNQUEST eGFR, if AFR/AM 33(L) >60 SEE NOTE SUNQUEST Comment: (NOTE) eGFR = estimated GFR; eGFR units = mL/min/1.73 sq meters Chronic Kidney Disease is considered if eGFR <60 mL/min/1.73 sq meters Kidney failure is considered if eGFR is <15 mL/min/1.73 sq meters. eGFR assumes steady state plasma creatinine concentration; not applicable if renal function is rapidly changing or patient is on dialysis. 09/09/2017 3:22 AM EST 09/09/2017 4:26 AM EST us Sancho Dwyer MD LAB BLOOD ORDERABLES Final Res ult Performing Organization Address City/[facility]/ZIP Co de Phone Number SUNQUEST * (ABNORMAL) Glucose Point of Care. (09/08/2017 9:38 PM EST) POCT Glucose 259(H) 74 - 99 mg/dL SUNQUEST Comment:Whole Blood 09/08/2017 9:38 PM EST 09/08/2017 9:41 PM EST Genevieve Lovell MD LAB BLOOD ORDERABLES Final Result Performing Organization Address [facility] Co de Phone Number SUNQUEST * (ABNORMAL) Glucose Point of Care. (09/08/2017 4:38 PM EST) POCT Glucose 361(H) 74 - 99 mg/dL SUNQUEST Comment:Whole Blood 09/08/2017 4:38 PM EST 09/08/2017 4:46 PM EST Genevieve Lovell MD LAB BLOOD ORDERABLES Final Result Performing Organization Address [facility] de Phone Number SUNQUEST * (ABNORMAL) Basic Metabolic Panel, Plasma (09/08/2017 1:43 PM EST) Glucose, Plasma 374(H) 74 - 99 mg/dL SUNQUEST BUN, Plasma 19 7 - 21 mg/dL SUNQUEST Creatinine, Plasma 1.68(H) 0.80 - 1.30 mg/dL SUNQUEST BUN/Creatinine Ratio 11 8 - 20 SUNQUEST Sodium, Plasma 139 136 - 145 mmol/L SUNQUEST Potassium, Plasma 4.1 3.7 - 4.8 mmol/L SUNQUEST Chloride, Plasma 102 101 - 108 mmol/L SUNQUEST CO2, Plasma 26 22 - 29 mmol/L SUNQUEST Anion Gap 11 6 - 16 mmol/L SUNQUEST Calcium, Plasma 8.6(L) 8.9 - 10.2 mg/dL SUNQUEST eGFR 45(L) >60 SEE NOTE SUNQUEST eGFR, if AFR/AM 54(L) >60 SEE NOTE SUNQUEST Comment: (NOTE) eGFR = estimated GFR; eGFR units = mL/min/1.73 sq meters Chronic Kidney Disease is considered if eGFR <60 mL/min/1.73 sq meters Kidney failure is considered if eGFR is <15 mL/min/1.73 sq meters. eGFR assumes steady state plasma creatinine concentration; not applicable if renal function is rapidly changing or patient is on dialysis. 09/08/2017 1:43 PM EST 09/08/2017 1:51 PM EST us Sancho Dwyer MD LAB BLOOD ORDERABLES Final Res ult Performing Organization Address [facility] Phone Number SUNQUEST * (ABNORMAL) Glucose Point of Care. (09/08/2017 11:18 AM EST) POCT Glucose 379(H) 74 - 99 mg/dL SUNQUEST Comment:Whole Blood 09/08/2017 11:1 8 AM EST 09/08/2017 11:21 AM EST Genevieve Lovell MD LAB BLOOD ORDERABLES Final Result Performing Organization Address [facility] Phone Number SUNQUEST * (ABNORMAL) Glucose Point of Care. (09/08/2017 7:35 AM EST) POCT Glucose 249(H) 74 - 99 mg/dL SUNQUEST Comment:Whole Blood 09/08/2017 7:35 AM EST 09/08/2017 7:37 AM EST Genevieve Lovell MD LAB BLOOD ORDERABLES Final Result Performing Organization Address [facility] Phone Number SUNQUEST * Extra Tubes (09/08/2017 2:41 AM EST) Extra LAVENDER TOP TUBE. WHOLE BLOOD REFRIGERATED IN LAB 72 HOURS. SUNQUEST 09/08/2017 2:41 AM EST 09/08/2017 2:41 AM EST us Genevieve Lovell MD LAB BLOOD ORDERABLES Final Result Performing Organization Address [facility] Phone Number SUNQUEST * Lactate, venous (09/08/2017 2:26 AM EST) Lactate, Venous 1.7 0.5 - 2.2 mmol/L SUNQUEST 09/08/2017 2:26 AM EST 09/08/2017 2:38 AM EST us Sancho Dwyer MD LAB BLOOD ORDERABLES Final Res ult SUNQUEST * (ABNORMAL) Basic Metabolic Panel, Plasma (09/08/2017 2:26 AM EST) Glucose, Plasma 199(H) 74 - 99 mg/dL SUNQUEST BUN, Plasma 17 7 - 21 mg/dL SUNQUEST Creatinine, Plasma 1.58(H) 0.80 - 1.30 mg/dL SUNQUEST BUN/Creatinine Ratio 11 8 - 20 SUNQUEST Sodium, Plasma 141 136 - 145 mmol/L SUNQUEST Potassium, Plasma 3.9 3.7 - 4.8 mmol/L SUNQUEST Chloride, Plasma 104 101 - 108 mmol/L SUNQUEST CO2, Plasma 27 22 - 29 mmol/L SUNQUEST Anion Gap 10 6 - 16 mmol/L SUNQUEST Calcium, Plasma 9.5 8.9 - 10.2 mg/dL SUNQUEST eGFR 48(L) >60 SEE NOTE SUNQUEST eGFR, if AFR/AM 58(L) >60 SEE NOTE SUNQUEST Comment: (NOTE) eGFR = estimated GFR; eGFR units = mL/min/1.73 sq meters Chronic Kidney Disease is considered if eGFR <60 mL/min/1.73 sq meters Kidney failure is considered if eGFR is <15 mL/min/1.73 sq meters. eGFR assumes steady state plasma creatinine concentration; not applicable if renal function is rapidly changing or patient is on dialysis. 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 Technically difficult study. COMPARISON: Ul trasound 08/15/2017, CT 09/06/2017 FINDINGS: Aorta: ??There is normal flow directionality. IVC: The hong scale appearance of the abdominal inferior vena cava is unremarkable. There is normal direction of blood flow. Portal Vein: There is an tegrade flow within the main portal vein proximal to the TIPS with a velocity of 41 cm/sec. Retrograde flow in the portal vein beyond the TIPS. There is a patent TIPS present. Proximal TIPS velocity 104 cm/s, mid TIPS velocity ranges from 210 -247 cm/s.. Distal TIPS velocity 103 cm/s. Mid TIPS velocities increased compared to prior examination from 08/15/2017. Hepatic Artery: The main hepatic artery is patent with normal direction of flow. The resistive index is 0.65. Peak systolic v elocity is 99 cm/sec. Hepatic Veins: The visualized major hepatic veins are patent at the IVC confluence with normal direction of flow. ?? IMPRESSION: 1. Patent TIPS. Mid TIPS velocities increased compared to prior examination from 08/15/19 18. May indicate TIPS stenosis. CRITICAL RESULT: No. COMMUNICATION: Per this written report. ATTESTATION: Not applicable. ?? Verified by: AUBREY LOWRY M.D. on Sep 08 2017 ??7:47A Transcribed by: [facility] on Sep 08 2017 ??7:47A Dictate d by: AUBREY LOWRY M.D. 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 Technically difficult study. COMPARISON: Ul trasound 08/15/2017, CT 09/06/2017 FINDINGS: Aorta: There is normal flow directionality. IVC: The hong scale appearance of the abdominal inferior vena cava is unremarkable. There is normal direction of blood flow. Portal Vein: There is an tegrade flow within the main portal vein proximal to the TIPS with a velocity of 41 cm/sec. Retrograde flow in the portal vein beyond the TIPS. There is a patent TIPS present. Proximal TIPS velocity 104 cm/s, mid TIPS velocity ranges from 210 -247 cm/s.. Distal TIPS velocity 103 cm/s. Mid TIPS velocities increased compared to prior examination from08/15/2017. Hepatic Artery: The main hepatic artery is patent with normal direction of flow. The resistive index is 0.65. Peak systolic v elocity is 99 cm/sec. Hepatic Veins: The visualized major hepatic veins are patent at the IVC confluence with normal direction of flow. IMPRESSION: 1. Patent TIPS. Mid TIPS velocities increased compared to prior examination from 08/15/19 18. May indicate TIPS stenosis. CRITICAL RESULT: No. COMMUNICATION: Per this written report. ATTESTATION: Not applicable. Verified by: AUBREY LOWRY M.D. on Sep 08 2017 7:47A Transcribed by: [facility] on Sep 08 2017 7:47A Dictate d by: AUBREY LOWRY M.D. on Sep 08 2017 7:40A Genevieve Lovell MD IMG US PROCEDURES Final Re sult * (ABNORMAL) Urinalysis with reflex microscopic (09/08/2017 12:08 AM EST) Color, Urine YELLOW SUNQUEST Clarity, Urine CLEAR SUNQUEST Spec [place], Urine 1.015 1.001 - 1.030 SUNQUEST pH, Urine 5.5 4.5 - 8.0 SUNQUEST Protein, Urine 30(A) NEG mg/dL SUNQUEST Glucose, Urine 250(A) NEG mg/dL SUNQUEST Ketones, Urine NEGATIVE NEG mg/dL SUNQUEST Blood, Urine SMALL(A) NEG SUNQUEST Bilirubin, Urine NEGATIVE NEG SUNQUEST Urobilinogen, Urine > OR = 1.0 0.2 - 1.0 EU/dL SUNQUEST Leukocytes, Urine NEGATIVE NEG SUNQUEST Nitrite, Urine NEGATIVE NEG SUNQUEST Microscopic Description . SUNQUEST RBC, Urine 0-3 0 - 3 /HPF SUNQUEST WBC, Urine 0-5 0 - 5 /HPF SUNQUEST Squamous Epithelial 0-5 0 - 5 /HPF SUNQUEST Hyaline Casts 0-8 0 - 8 /LPF SUNQUEST 09/08/2017 12:0 8 AM EST 09/08/2017 12:21 AM EST Historical Provider LAB URINE ORDERABLES Yoselin l Result Performing Organization Address [facility] de Phone Number SUNQUEST * (ABNORMAL) Glucose Point of Care. (09/07/2017 9:17 PM EST) POCT Glucose 243(H) 74 - 99 mg/dL SUNQUEST Comment:Whole Blood 09/07/2017 9:17 PM EST 09/07/2017 9:18 PM EST Genevieve Lovell MD LAB BLOOD ORDERABLES Final Result Performing Organization Address [facility] Phone Number SUNQUEST * (ABNORMAL) Glucose Point of Care. (09/07/2017 7:11 AM EST) POCT Glucose 273(H) 74 - 99 mg/dL SUNQUEST Comment:Whole Blood 09/07/2017 7:11 AM EST 09/07/2017 7:12 AM EST Genevieve Lovell MD LAB BLOOD ORDERABLES Final Result Performing Organization Address [facility] de Phone Number SUNQUEST * (ABNORMAL) Lactate, venous (09/07/2017 4:40 AM EST) Lactate, Venous 2.9(H) 0.5 - 2.2 mmol/L SUNQUEST 09/07/2017 4:40 AM EST 09/07/2017 4:48 AM EST Amrit Chan MD LAB BLOOD ORDERABLES Yoselin l Result Performing Organization Address [facility] de Phone Number SUNQUEST * (ABNORMAL) Prothrombin Time/INR (09/07/2017 4:40 AM EST) Prothrombin Time 17.9(H) 12.3 - 14.8 sec SUNQUEST INR 1.4(H) 0.9 - 1.1 SUNQUEST Comment: (NOTE) OPTIMAL INR RANGES FOR PATIENT ON ORAL ANTICOAGULANT THERAPY Prevention of venous thromboembolism ?INR 2.0 to 3.0 In patients with heart disease: ?Atrial fibrillation ?INR 2.0 to 3.0 ?Valvular heart disease ? INR 2.0 to 3.0 ?Tissue heart valves ?INR 2.0 to 3.0 ?Mechanical prosthetic valves ? INR 2.5 to 3.5 ?Prevention of recurrent MA ? INR 2.5 to 3.5 09/07/2017 4:40 AM EST 09/07/2017 4:48 AM EST us Historical Provider LAB BLOOD ORDERABLES Yoselin robles Result SUNQUEST * (ABNORMAL) Comprehensive Metabolic Panel, Plasma (09/07/2017 4:40 AM EST) Glucose, Plasma 246(H) 74 - 99 mg/dL SUNQUEST BUN, Plasma 17 7 - 21 mg/dL SUNQUEST Creatinine, Plasma 1.38(H) 0.80 - 1.30 mg/dL SUNQUEST BUN/Creatinine Ratio 12 8 - 20 SUNQUEST Sodium, Plasma 143 136 - 145 mmol/L SUNQUEST Potassium, Plasma 4.3 3.7 - 4.8 mmol/L SUNQUEST Chloride, Plasma 105 101 - 108 mmol/L SUNQUEST CO2, Plasma 24 22 - 29 mmol/L SUNQUEST Anion Gap 14 6 - 16 mmol/L SUNQUEST Calcium, Plasma 9.9 8.9 - 10.2 mg/dL SUNQUEST AST, Plasma 50(H) 12 - 40 U/L SUNQUEST ALT, Plasma 21 11 - 41 U/L SUNQUEST Alkaline Phosphatase, Plasma 145(H) 40 - 115 U/L SUNQUEST Total Bilirubin, Plasma 6.8(H) 0.2 - 1.1 mg/dL SUNQUEST Total Protein 5.7(L) 6.3 - 7.9 g/dL SUNQUEST Albumin, Plasma 2.2(L) 3.3 - 4.6 g/dL SUNQUEST eGFR 56(L) >60 SEE NOTE SUNQUEST eGFR, if AFR/AM >60 >60 SEE NOTE SUNQUEST Comment: (NOTE) eGFR = estimated GFR; eGFR units = mL/min/1.73 sq meters Chronic Kidney Disease is considered if eGFR <60 mL/min/1.73 sq meters Kidney failure is considered if eGFR is <15 mL/min/1.73 sq meters. eGFR assumes steady state plasma creatinine concentration; not applicable if renal function is rapidly changing or patient is on dialysis. 09/07/2017 4:40 AM EST 09/07/2017 4:48 AM EST us Historical Provider LAB BLOOD ORDERABLES Yoselin robles Result SUNQUEST * (ABNORMAL) CBC W/O Differential (09/07/2017 4:40 AM EST) WBC Count 4.0 3.7 - 10.3 k/uL SUNQUEST RBC Count 2.56(L) 4.6 - 6.1 M/uL SUNQUEST HGB 9.4(L) 13.7 - 17.5 g/dL SUNQUEST HCT 26.4(L) 40 - 51 % SUNQUEST Platelet Count 118(L) 155 - 369 k/uL SUNQUEST MCV 103(H) 79 - 98 fL SUNQUEST MCH 36.7(H) 26 - 32 pg SUNQUEST MCHC 35.6(H) 30.7 - 35.5 g/dL SUNQUEST RDW 16.8(H) 12.4 - 14.9 % SUNQUEST MPV 11.0 8.8 - 12.5 fL SUNQUEST NRBC COUNT 0 0 % SUNQUEST 09/07/2017 4:40 AM EST 09/07/2017 4:48 AM EST Historical Provider MD LAB BLOOD ORDERABLES Yoselin l Result Performing Organization Address [facility] de Phone Number SUNQUEST * Blood Culture (Aerobic/Anaerobet Set) (09/07/2017 4:40 AM EST) 09/07/2017 4:40 AM EST 09/07/2017 5:52 AM EST Narrative SUNQUEST - 09/08/2020 1:01 PM EST SQ ACC. NUMBER ?[id number] SPECIMEN DESCRIPTION: ?BLOOD LEFT WRIST SPECIAL REQUESTS: ?None CULTURE: ? NO GROWTH DAY 5. REPORT STATUS: ? FINAL 09/13/2017 Historical Provider MD LAB MICROBIOLOGY - GENERA L ORDERABLES Final Result Performing Organization Address [facility] de Phone Number SUNQUEST * Blood Culture (Aerobic/Anaerobet Set) (09/07/2017 4:40 AM EST) 09/07/2017 4:40 AM EST 09/07/2017 5:52 AM EST Narrative SUNQUEST - 09/08/2020 1:01 PM EST SQ ACC. NUMBER ?[id number] SPECIMEN DESCRIPTION: ?BLOOD RIGHT HAND SPECIAL REQUESTS: ?None CULTURE: ? NO GROWTH DAY 5. REPORT STATUS: ? FINAL 09/13/2017 Historical Provider MD LAB MICROBIOLOGY - GENERA L ORDERABLES Final Result Performing Organization Address [facility] de Phone Number SUNQUEST * CT Abdomen Pelvis w IV Contrast (09/06/2017 9:48 PM EST) Anatomical Region Laterality Modality Abdomen, Pelvis Computed Tomogra phy Narrative 09/06/2017 10:16 PM EST REQUESTING PHYSICIAN: UVALDO PAT REASON FOR EXAMINATION/PROCEDURE: RAD PDP:Y ??* ??Abdominal Pain EXAMINATION / PROCEDURE: CT Abdomen and Pelvis W IVCON Sep 06 2017 - 21:48; ?? CLINICAL INDICATION: Abdominal pain. TECHNIQUE: Imaging ??of the abdomen and pelvis was performed, from lung bases through pubic symphysis, using spiral technique, following administration of IV contrast, Omnipaque 300, 100 mL. Delayed (excretory phase) images were performed through the kidneys. Refor matted images in the coronal and sagittal planes were generated from the axial data set to facilitate diagnostic accuracy. Total DLP (Dose-Length Product): 915.60 mGy.cm. Please note: The reported value represents the total of one or more ind ividual components during the CT acquisition on this date and at this time, and as such, the same value may appear in more than one CT report depending on the interpreting/reporting physicians. COMPARISON: CT abdomen and pelvis 03/06/2017. FINDINGS: Lung Bases: The lung bases are clear. Liver/Gallbladder/Biliary system: Cirrhotic changes of the liver. Unchanged low density subcentimeter left hepatic lesions. Post TIPS. Multiple calcified gallstones with cylindrical fat-contai harsha partially calcified gallstones. No intra- or extra-hepatic biliary ductal dilatation. Spleen: The spleen again measures at the upper limits of normal at 13 cm in craniocaudal dimension. Pancreas: The pancreas enhances homogeneously. Adrenals: The adrenals are morphologically unremarkable. Kidneys: The kidneys demonstrate symmetric nephrogram and excretion. No renal or ureteral calculi. No hydronephrosis. Bowel/Mesentery: The small bowel loops are not dilated. The large bowel loops are not dilated. The appendix is visualized and normal. Vessels/Lymph Nodes: Portosystemic collaterals are present. The abdominal aorta is unremarkable. No lymphadenopathy within the abdomen or pelvis. Fluid Survey: No free fluid ??in the abdomen. No free fluid in the pelvis. Pelvis: The pelvic viscera are unremarkable. Body Wall: Normal. Bones: No acute fracture. Degenerative changes at L5-S1 with vacuum disc and subchondral sclerosis. Grade 1 anterolisthesis of L5 on S1. ?? IMPRESSION: . No acute findings in the abdomen or pelvis at this time. 2. Cirrhosis with findings of portal hypertension. 3. Cholelithiasis. CRITICAL RESULT: ?? No. COMMUNICATION: Per this written report. By electronicall y signing this report, I, the attending physician, attest that I have personally reviewed the images/data for the above examination(s) and agree with the final edited report. ?? Verified by: LEONCIO MOSLEY M.D. on Sep 06 2017 10:14P Transcribed by: PSCMaria Teresa on Sep 06 2017 ??9:52P Dictated by: SRINATH CURRY M.D. on Sep 06 2017 ??9:52P Procedure Note Provider, MD Amrit - 12/06/2020 REQUESTING PHYSICIAN: UVALDO PAT REASON FOR EXAMINATION/PROCEDURE: RAD PDP:Y * Abdominal Pain EXAMINATION / PROCEDURE: CT Abdomen and Pelvis W IVCON Sep 06 2017 - 21:48; CLINICAL INDICATION: Abdominal pain. TECHNIQUE: Imaging of the abdomen and pelvis was performed, from lung bases through pubic symphysis, using spiral technique, following administration of IV contrast, Omnipaque 300, 100 mL. Delayed (excretory phase) images were performed through the kidneys. Refor matted images in the coronal and sagittal planes were generated from the axial data set to facilitate diagnostic accuracy. Total DLP (Dose-Length Product): 915.60 mGy.cm. Please note: The reported value represents the total of one or more ind ividual components during the CT acquisition on this date and at this time, and as such, the same value may appear in more than one CT report depending on the interpreting/reporting physicians. COMPARISON: CT abdomen and pelvis 03/06/2017. FINDINGS: Lung Bases: The lung bases are clear. Liver/Gallbladder/Biliary system: Cirrhotic changes of the liver. Unchanged low density subcentimeter left hepatic lesions. Post TIPS. Multiple calcified gallstones with cylindrical fat-contai harsha partially calcified gallstones. No intra- or extra-hepatic biliary ductal dilatation. Spleen: The spleen again measures at the upper limits of normal at 13 cm in craniocaudal dimension. Pancreas: The pancreas enhances homogeneously. Adrenals: The adrenals are morphologically unremarkable. Kidneys: The kidneys demonstrate symmetric nephrogram and excretion. No renal or ureteral calculi. No hydronephrosis. Bowel/Mesentery: The small bowel loops are not dilated. The large bowel loops are not dilated. The appendix is visualized and normal. Vessels/Lymph Nodes: Portosystemic collaterals are present. The abdominal aorta is unremarkable. No lymphadenopathy within the abdomen or pelvis. Fluid Survey: No free fluid in the abdomen. No free fluid in thepelvis. Pelvis: The pelvic viscera are unremarkable. Body Wall: Normal. Bones: No acute fracture. Degenerative changes at L5-S1 with vacuum disc and subchondral sclerosis. Grade 1 anterolisthesis of L5 on S1. IMPRESSION: . No acute findings in the abdomen or pelvis at this time. 2. Cirrhosis with findings of portal hypertension. 3. Cholelithiasis. CRITICAL RESULT: No. COMMUNICATION: Per this written report. By electronicall y signing this report, I, the attending physician, attest that I have personally reviewed the images/data for the above examination(s) and agree with the final edited report. Verified by: LEONCIO MOSLEY M.D. on Sep 06 2017 10:14P Transcribed by: DOMINIK on Sep 06 2017 9:52P Dictated by: SRINATH CURRY M.D. on Sep 06 2017 9:52P Uvaldo Pat MD IMG CT PROCEDURES Final Result * (ABNORMAL) APTT (09/06/2017 8:40 PM EST) aPTT 41(H) 25 - 36 sec SUNQUEST 09/06/2017 8:40 PM EST 09/06/2017 8:40 PM EST Historical Provider LAB BLOOD ORDERABLES Yoselin l Result SUNQUEST * (ABNORMAL) Prothrombin Time/INR (09/06/2017 8:40 PM EST) Prothrombin Time 18.6(H) 12.3 - 14.8 sec SUNQUEST INR 1.5(H) 0.9 - 1.1 SUNQUEST Comment: (NOTE) OPTIMAL INR RANGES FOR PATIENT ON ORAL ANTICOAGULANT THERAPY Prevention of venous thromboembolism ?INR 2.0 to 3.0 In patients with heart disease: ?Atrial fibrillation ?INR 2.0 to 3.0 ?Valvular heart disease ? INR 2.0 to 3.0 ?Tissue heart valves ?INR 2.0 to 3.0 ?Mechanical prosthetic valves ? INR 2.5 to 3.5 ?Prevention of recurrent MA ? INR 2.5 to 3.5 09/06/2017 8:40 PM EST 09/06/2017 8:40 PM EST Historical Provider MD LAB BLOOD ORDERABLES Yoselin l Result Performing Organization Address [facility] Phone Number SUNQUEST * (ABNORMAL) Lactate, venous (09/06/2017 8:40 PM EST) Lactate, Venous 3.1(H) 0.5 - 2.2 mmol/L SUNQUEST 09/06/2017 8:40 PM EST 09/06/2017 8:44 PM EST Historical Provider MD LAB BLOOD ORDERABLES Yoselin l Result Performing Organization Address [facility] Phone Number SUNQUEST * Lipase, Plasma (09/06/2017 8:40 PM EST) Lipase, Plasma 42 19 - 63 U/L SUNQUEST 09/06/2017 8:40 PM EST 09/06/2017 8:40 PM EST Historical Provider MD LAB BLOOD ORDERABLES Yoselin l Result Performing Organization Address [facility] Phone Number SUNQUEST * (ABNORMAL) Comprehensive Metabolic Panel, Plasma (09/06/2017 8:40 PM EST) Glucose, Plasma 202(H) 74 - 99 mg/dL SUNQUEST BUN, Plasma 17 7 - 21 mg/dL SUNQUEST Creatinine, Plasma 1.20 0.80 - 1.30 mg/dL SUNQUEST BUN/Creatinine Ratio 14 8 - 20 SUNQUEST Sodium, Plasma 142 136 - 145 mmol/L SUNQUEST Potassium, Plasma 4.2 3.7 - 4.8 mmol/L SUNQUEST Chloride, Plasma 105 101 - 108 mmol/L SUNQUEST CO2, Plasma 24 22 - 29 mmol/L SUNQUEST Anion Gap 13 6 - 16 mmol/L SUNQUEST Calcium, Plasma 9.9 8.9 - 10.2 mg/dL SUNQUEST AST, Plasma 50(H) 12 - 40 U/L SUNQUEST ALT, Plasma 23 11 - 41 U/L SUNQUEST Alkaline Phosphatase, Plasma 156(H) 40 - 115 U/L SUNQUEST Total Bilirubin, Plasma 7.0(H) 0.2 - 1.1 mg/dL SUNQUEST Total Protein 6.0(L) 6.3 - 7.9 g/dL SUNQUEST Albumin, Plasma 2.5(L) 3.3 - 4.6 g/dL SUNQUEST eGFR >60 >60 SEE NOTE SUNQUEST eGFR, if AFR/AM >60 >60 SEE NOTE SUNQUEST Comment: (NOTE) eGFR = estimated GFR; eGFR units = mL/min/1.73 sq meters Chronic Kidney Disease is considered if eGFR <60 mL/min/1.73 sq meters Kidney failure is considered if eGFR is <15 mL/min/1.73 sq meters. eGFR assumes steady state plasma creatinine concentration; not applicable if renal function is rapidly changing or patient is on dialysis. 09/06/2017 8:40 PM EST 09/06/2017 8:40 PM EST Historical Provider LAB BLOOD ORDERABLES Yoselin l Result SUNQUEST * (ABNORMAL) Conjugated Bilirubin, Plasma (09/06/2017 8:40 PM EST) Bili,Conj 1.9(H) 0.0 - 0.2 mg/dL SUNQUEST 09/06/2017 8:40 PM EST 09/06/2017 8:40 PM EST Historical Provider LAB BLOOD ORDERABLES Yoselin l Result Performing Organization Address [facility] de Phone Number SUNQUEST * (ABNORMAL) CBC W/O Differential (09/06/2017 8:40 PM EST) WBC Count 4.6 3.7 - 10.3 k/uL SUNQUEST RBC Count 2.68(L) 4.6 - 6.1 M/uL SUNQUEST HGB 9.8(L) 13.7 - 17.5 g/dL SUNQUEST HCT 27.2(L) 40 - 51 % SUNQUEST Platelet Count 119(L) 155 - 369 k/uL SUNQUEST MCV 102(H) 79 - 98 fL SUNQUEST MCH 36.6(H) 26 - 32 pg SUNQUEST MCHC 36.0(H) 30.7 - 35.5 g/dL SUNQUEST RDW 16.7(H) 12.4 - 14.9 % SUNQUEST MPV 10.3 8.8 - 12.5 fL SUNQUEST NRBC COUNT 0 0 % SUNQUEST 09/06/2017 8:40 PM EST 09/06/2017 8:40 PM EST us Historical Provider MD LAB BLOOD ORDERABLES Yoselin robles Result Performing Organization Address [facility] de Phone Number SUNQUEST * (ABNORMAL) WBC Differential (09/06/2017 8:40 PM EST) Neutrophils % 60 % SUNQUEST Lymphocytes 22 % SUNQUEST Monocytes 14 % SUNQUEST Eosinophils 4 % SUNQUEST Basophils 0 % SUNQUEST Immature Granulocytes % 0 % SUNQUEST ABS Neutrophil 2.70 1.6 - 6.1 k/uL SUNQUEST ABS Lymphocyte 1.01(L) 1.2 - 3.9 k/uL SUNQUEST ABS Monocyte 0.66 0.3 - 0.9 k/uL SUNQUEST ABS Eosinophil 0.20 0 - 0.5 k/uL SUNQUEST ABS Basophil 0.02 0 - 0.1 k/uL SUNQUEST Immature Granulocyte Absolute 0.02 0 - 0.06 k/uL SUNQUEST 09/06/2017 8:40 PM EST 09/06/2017 8:40 PM EST Narrative SUNQUEST - 09/06/2017 8:51 PM EST Therapeutic decision making should be based on absolute values, rather than percentages. Therapeutic decision making should be based on absolute values, rather than percentages. Therapeutic decision making should be based on absolute values, rather than percentages. Therapeutic decision making should be based on absolute values, rather than percentages. Historical Provider LAB BLOOD ORDERABLES Yoselin l Result Performing Organization Address [facility] Phone Number SUNQUEST * (ABNORMAL) Ammonia, Plasma (09/06/2017 8:36 PM EST) Ammonia 109(H) 11 - 51 umol/L SUNQUEST 09/06/2017 8:36 PM EST 09/06/2017 8:44 PM EST Historical Provider LAB BLOOD ORDERABLES Yoselin l Result Performing Organization Address [facility] Phone Number SUNQUEST documented in this encounter Visit Diagnoses Diagnosis Acute and subacute hepatic failure without coma documented in this encounter
--- OUTSIDE RECORDS SUMMARY | 2024-07-12 13:07 | XMS_ITS | Encounter Summary ---
Author Organization [facility] Address [address] [place] [address] Care Team Providers Care Actionscript Developer Name Role Phone Edgar Fournier MD Primary Care Provider [phone] Enrique Griffith MD Unavailable [phone] Encounter Details Date Type Department Care Team (Late st Contact Info) Description 08/23/2017 [facility] OTTR Encounter HISTORICAL OTTR [address] [place] [address] Kathya Hassan, NAVNEET [address] [facility] [address] [place] [address] Social History Tobacco Use Types Packs/Day Years Used Date Smoking Tobacco: Never Assessed Sex and Gender Information Value Date Recorded Sex Assigned at Not on file Legal Sex Male 6:10 PM EDT Gender Identity Not on file Sexual Orientation Straight 03/02/2021 10 :04 AM EDT documented as of this encounter Miscellaneous Notes * Progress Notes - Kathya Hassan - 08/23/2017 4:25 PM EST Bridgett, I don't think think patient needs to be seen so soon - can we reschedule him for about 4 weeks after his last visit on Aug 15? May he can get his renal US then. documented in this encounter Plan of Treatment Not on file documented as of this encounter Visit Diagnoses Not on filedocumented in this encounter Additional Health Concerns Infection Onset Date Last Indicated Resolved Time COVID-19 Rule-Out 11/08/2021 11/08/2021 11/08/2021 8:06 AM EDT documented as of this encounter Care Teams Actionscript Developer Relationship Specialty Start Date End Date Edgar Fournier MD [address] [place] [address] PCP - General 12/25/20 Enrique Griffith MD [address] [place] [phone] Referring Physician Nephrology 01/08/21 documented as of this encounter
--- OUTSIDE RECORDS SUMMARY | 2024-07-12 13:07 | XMS_ITS | Encounter Summary ---
Author Organization [facility] Address [address] [place] [id number] Care Team Providers Care Shower Attendant Name Role Phone Edgar Fournier MD Primary Care Provider [phone] Enrique Griffith MD Unavailable [phone] Encounter Details Date Type Department Care Team (Late st Contact Info) Description 07/03/2017 [facility] OTTR Encounter HISTORICAL OTTR [address] [place] [address] Bridgett Márquez, RN [id number] [address] [place] [id number] Social History Tobacco Use Types Packs/Day Years Used Date Smoking Tobacco: Never Assessed Sex and Gender Information Value Date Recorded Sex Assigned at Not on file Legal Sex Male 6:10 PM EDT Gender Identity Not on file Sexual Orientation Straight 03/02/2021 10 :04 AM EDT documented as of this encounter Miscellaneous Notes * Progress Notes - Bridgett Márquez - 07/03/2017 9:50 AM EST Patient to RTC 08-15-2017, need to add US Liver to visit for TIPS patency. Orders in SCM, msg to AG to schedule. documented in this encounter Plan of Treatment Not on file documented as of this encounter Visit Diagnoses Not on filedocumented in this encounter Additional Health Concerns Infection Onset Date Last Indicated Resolved Time COVID-19 Rule-Out 11/08/2021 11/08/2021 11/08/2021 8:06 AM EDT documented as of this encounter Care Teams Shower Attendant Relationship Specialty Start Date End Date Edgar Fournier MD [address] [place] [address] PCP - General 12/25/20 Enrique Griffith MD [address] [place] [phone] Referring Physician Nephrology 01/08/21 documented as of this encounter
--- OUTSIDE RECORDS SUMMARY | 2024-07-12 13:07 | XMS_ITS | Encounter Summary ---
Author Organization [facility] Address [address] [place] [address] Care Team Providers Care Steward/Stewardess Name Role Phone Edgar Fournier MD Primary Care Provider [phone] Enrique Griffith MD Unavailable [phone] Encounter Details Date Type Department Care Team (Late st Contact Info) Description 07/04/2017 [facility] OTTR Encounter HISTORICAL OTTR [address] [place] [address] George Roxi Harish [facility] [address] [place] [address] Social History Tobacco Use Types Packs/Day Years Used Date Smoking Tobacco: Never Assessed Sex and Gender Information Value Date Recorded Sex Assigned at Not on file Legal Sex Male 6:10 PM EDT Gender Identity Not on file Sexual Orientation Straight 03/02/2021 10 :04 AM EDT documented as of this encounter Miscellaneous Notes * Progress Notes - George November - 07/04/2017 1:05 PM EST Spoke to patient regarding US along w/RTC appt on 08/15 arriving at 9:45am. Schedule to be mailed to patient. Precert email sent to [facility]. He verbalized understanding. documented in this encounter Plan of Treatment Not on file documented as of this encounter Visit Diagnoses Not on filedocumented in this encounter Additional Health Concerns Infection Onset Date Last Indicated Resolved Time COVID-19 Rule-Out 11/08/2021 11/08/2021 11/08/2021 8:06 AM EDT documented as of this encounter Care Teams Steward/Stewardess Relationship Specialty Start Date End Date Edgar Fournier MD [address] [place] [address] PCP - General 12/25/20 Enrique Griffith MD [address] [place] [address] Referring Physician Nephrology 01/08/21 documented as of this encounter
--- OUTSIDE RECORDS SUMMARY | 2024-07-12 13:07 | XMS_ITS | Encounter Summary ---
Author Organization [facility] Address [address] [place] [address] Care Team Providers Care Elementary Tutor Name Role Phone Edgar Fournier MD Primary Care Provider [phone] Enrique Griffith MD Unavailable [phone] Encounter Details Date Type Department Care Team (Late st Contact Info) Description 07/19/2017 [facility] OTTR Encounter HISTORICAL OTTR [address] [place] [address] Christa Knowles [place] [id number] Social History Tobacco Use Types Packs/Day Years Used Date Smoking Tobacco: Never Assessed Sex and Gender Information Value Date Recorded Sex Assigned at Not on file Legal Sex Male 6:10 PM EDT Gender Identity Not on file Sexual Orientation Straight 03/02/2021 10 :04 AM EDT documented as of this encounter Miscellaneous Notes * Progress Notes - Christa Knowles - 07/19/2017 2:25 PM EST DOS 08/15/17 Op Cot US Abd Doppler w/[employer] [id number], NPR per [facility] MDCD online pre-cert look uptool. Nurse, rad and iauth updated. documented in this encounter Plan of Treatment Not on file documented as of this encounter Procedures Procedure Name Priority Date/Time Associated Diagnosis Comments OTTR LAB RESULTS (MANUAL) Routine 07/23/2017 6:43 AM EST documented in this encounter Results * OTTR LAB RESULTS (MANUAL) (07/23/2017 6:43 AM EST) External WBC 3.9 k/uL EXTERNAL LAB External Hemoglobin (Hgb) 9.9 gm/dL EXTERNAL LAB External Hematocrit (Hct) 28.5 % EXTERNAL LAB External Platelet Count (Plt) 148 k/uL EXTERNAL LAB External Prothrombin Time (PT) 13.5 seconds EXTERNAL LAB External INR - Internormal Ratio 1.34 EXTERNAL LAB External Glucose 95 mg/dL EXTERNAL LAB External BUN 19 mg/dL EXTERNAL LAB External Creatinine Blood 1.7 mg/dL EXTERNAL LAB External Sodium (Na) 148 mmol/L EXTERNAL LAB External Potassium (K) 3.8 mmol/L EXTERNAL LAB External Chloride (Cl) 114 mmol/L EXTERNAL LAB External Carbon Dioxide (CO2) 23 mmol/L EXTERNAL LAB External Calcium (Ca) 9.8 mg/dL EXTERNAL LAB External AST (SGOT) 65 units/L EXTERNAL LAB External ALT (SGPT) 33 units/L EXTERNAL LAB External Alkaline Phosphatase 154 U/L EXTERNAL LAB External Bilirubin Total 5.4 mg/dL EXTERNAL LAB External Total Protein 6.0 g/dL EXTERNAL LAB External Albumin 2.3 g/dL EXTERNAL LAB External Estimated GFR 46.99 EXTERNAL LAB 07/23/2017 6:43 AM EST Narrative EXTERNAL LAB - 08/03/2017 2:33 PM EST [facility] us Historical Provider LAB BLOOD ORDERABLES Yoselin l Result EXTERNAL LAB documented in this encounter Visit Diagnoses Not on filedocumented in this encounter Additional Health Concerns Infection Onset Date Last Indicated Resolved Time COVID-19 Rule-Out 11/08/2021 11/08/2021 11/08/2021 8:06 AM EDT documented as of this encounter Care Teams Elementary Tutor Relationship Specialty Start Date End Date Edgar Fournier MD [address] [place], [place] [phone] PCP - General 12/25/20 Enrique Griffith MD [address] [place] [phone] Referring Physician Nephrology 01/08/21 documented as of this encounter
--- OUTSIDE RECORDS SUMMARY | 2024-07-12 13:07 | XMS_ITS | Encounter Summary ---
Author Organization [facility] Address [address] [place] [id number] Care Team Providers Care Director Of Channel Marketing Name Role Phone Edgar Fournier MD Primary Care Provider [phone] Enrique Griffith MD Unavailable [phone] Encounter Details Date Type Department Care Team (Late st Contact Info) Description 09/20/2017 [facility] OTTR Encounter HISTORICAL OTTR [address] [place] [address] Bridgett Márquez, RN [facility] [id number] [address] [place] [address] Social History Tobacco Use Types Packs/Day Years Used Date Smoking Tobacco: Never Assessed Sex and Gender Information Value Date Recorded Sex Assigned at Not on file Legal Sex Male 6:10 PM EDT Gender Identity Not on file Sexual Orientation Straight 03/02/2021 10 :04 AM EDT documented as of this encounter Miscellaneous Notes * Progress Notes - Bridgett Márquez - 09/20/2017 1:51 PM EST Patient to RTC 09-22-17 at 10am documented in this encounter Plan of Treatment Not on file documented as of this encounter Visit Diagnoses Not on filedocumented in this encounter Additional Health Concerns Infection Onset Date Last Indicated Resolved Time COVID-19 Rule-Out 11/08/2021 11/08/2021 11/08/2021 8:06 AM EDT documented as of this encounter Care Teams Director Of Channel Marketing Relationship Specialty Start Date End Date Edgar Fournier MD [address] [place] [address] PCP - General 12/25/20 Enrique Griffith MD [address] [place] [address] Referring Physician Nephrology 01/08/21 documented as of this encounter
--- OUTSIDE RECORDS SUMMARY | 2024-07-12 13:07 | XMS_ITS | Encounter Summary ---
Author Organization [facility] Address [address] [place] [phone] Care Team Providers Care Amf Mechanic Name Role Phone Edgar Fournier MD Primary Care Provider [phone] Enrique Griffith MD Unavailable [phone] Encounter Details Date Type Department Care Team (Late st Contact Info) Description 09/07/2017 [facility] OTTR Encounter HISTORICAL OTTR [address] [place] [address] Bridgett Márquez, RN [facility] [id number] [address] [place] [address] Social History Tobacco Use Types Packs/Day Years Used Date Smoking Tobacco: Never Assessed Sex and Gender Information Value Date Recorded Sex Assigned at Not on file Legal Sex Male 6:10 PM EDT Gender Identity Not on file Sexual Orientation Straight 03/02/2021 10 :04 AM EDT documented as of this encounter Miscellaneous Notes * Progress Notes - Bridgett Márquez - 09/07/2017 9:34 AM EST Patient admitted to ED for HE. Listed Active, MELD 21 today. documented in this encounter Plan of Treatment Not on file documented as of this encounter Procedures Procedure Name Priority Date/Time Associated Diagnosis Comments OTTR LAB RESULTS (MANUAL) Routine 09/08/2017 2:26 AM EST OTTR LAB RESULTS (MANUAL) Routine 09/07/2017 4:40 AM EST documented in this encounter Results * OTTR LAB RESULTS (MANUAL) (09/08/2017 2:26 AM EST) External Estimated GFR 50.89 EXTERNAL LAB 09/08/2017 2:26 AM EST Narrative EXTERNAL LAB - 09/08/2017 3:23 AM EST Automated LAB Interface Historical Provider LAB BLOOD ORDERABLES Yoselin l Result Performing Organization Address [facility] de Phone Number EXTERNAL LAB * OTTR LAB RESULTS (MANUAL) (09/07/2017 4:40 AM EST) External Estimated GFR 59.49 EXTERNAL LAB 09/07/2017 4:40 AM EST Narrative EXTERNAL LAB - 09/07/2017 5:41 AM EST Automated LAB Interface Historical Provider LAB BLOOD ORDERABLES Yoselin l Result Performing Organization Address [facility] Co de Phone Number EXTERNAL LAB documented in this encounter Visit Diagnoses Not on filedocumented in this encounter Additional Health Concerns Infection Onset Date Last Indicated Resolved Time COVID-19 Rule-Out 11/08/2021 11/08/2021 11/08/2021 8:06 AM EDT documented as of this encounter Care Teams Amf Mechanic Relationship Specialty Start Date End Date Edgar Fournier MD [address] [place] [address] PCP - General 12/25/20 Enrique Griffith MD [address] [place] [address] Referring Physician Nephrology 01/08/21 documented as of this encounter
--- OUTSIDE RECORDS SUMMARY | 2024-07-12 13:07 | XMS_ITS | Encounter Summary ---
Author Organization [facility] Address [address] [id number] Care Team Providers Care Boat Tender Name Role Phone Edgar Fournier MD Primary Care Provider Enrique Griffith MD Unavailable [phone] Encounter Details Date Type Department Care Team (Late st Contact Info) Description 06/30/2017 [facility] Encounter HISTORICAL OTTR [address] [place] [address] Jaren Naqvi MD [address] [place] [address] Social History Tobacco Use Types Packs/Day Years Used Date Smoking Tobacco: Never Assessed Sex and Gender Information Value Date Recorded Sex Assigned at Not on file Legal Sex Male 6:10 PM EDT Gender Identity Not on file Sexual Orientation Straight 03/02/2021 10 :04 AM EDT documented as of this encounter Miscellaneous Notes * Progress Notes - Jaren Naqvi - 06/30/2017 7:38 PM EST Please schedule pt for US with Doppler for TIPS patency. documented in this encounter Plan of Treatment Not on file documented as of this encounter Visit Diagnoses Not on filedocumented in this encounter Additional Health Concerns Infection Onset Date Last Indicated Resolved Time COVID-19 Rule-Out 11/08/2021 11/08/2021 11/08/2021 8:06 AM EDT documented as of this encounter Care Teams Boat Tender Relationship Specialty Start Date End Date Edgar Fournier MD [address] [place] [address] PCP - General 12/25/20 Enrique Griffith MD [address] [place] [address] Referring Physician Nephrology 01/08/21 documented as of this encounter
--- OUTSIDE RECORDS SUMMARY | 2024-07-12 13:07 | XMS_ITS | Encounter Summary ---
Author Organization [facility] Address [address] [id number] Care Team Providers Care Elevator Erector Name Role Phone Edgar Fournier MD Primary Care Provider [phone] Enrique Griffith MD Unavailable [phone] Encounter Details Date Type Department Care Team (Late st Contact Info) Description 06/22/2017 [facility] Encounter HISTORICAL OTTR [address] [place] [address] Malou Gonzalez, RN [facility] [id number] [address] [id number] Social History Tobacco Use Types Packs/Day Years Used Date Smoking Tobacco: Never Assessed Sex and Gender Information Value Date Recorded Sex Assigned at Not on file Legal Sex Male 6:10 PM EDT Gender Identity Not on file Sexual Orientation Straight 03/02/2021 10 :04 AM EDT documented as of this encounter Miscellaneous Notes * Progress Notes - Malou Gonzalez - 06/22/2017 10:50 AM EST pt called with upper abdominal pain into shoulders and arms. Denied chest pain. States pain is constant and unable to get relief. Pt unhappy with care provided at [facility] ER. Pt to come to ED for assessment. documented in this encounter Plan of Treatment Not on file documented as of this encounter Visit Diagnoses Not on filedocumented in this encounter Additional Health Concerns Infection Onset Date Last Indicated Resolved Time COVID-19 Rule-Out 11/08/2021 11/08/2021 11/08/2021 8:06 AM EDT documented as of this encounter Care Teams Elevator Erector Relationship Specialty Start Date End Date Edgar Fournier MD [address] [place] [address] PCP - General 12/25/20 Enrique Griffith MD [address] [place] [address] Referring Physician Nephrology 01/08/21 documented as of this encounter
--- OUTSIDE RECORDS SUMMARY | 2024-07-12 13:07 | XMS_ITS | Encounter Summary ---
Author Organization [facility] Address [address] [place] [address] Care Team Providers Care Beef Specialist Name Role Phone Edgar Fournier MD Primary Care Provider [phone] Enrique Griffith MD Unavailable [phone] Encounter Details Date Type Department Care Team (Late st Contact Info) Description 06/21/2017 [facility] Encounter HISTORICAL OTTR [address] [place] [address] Vera Rosales [address] [id number] Social History Tobacco Use Types Packs/Day Years Used Date Smoking Tobacco: Never Assessed Sex and Gender Information Value Date Recorded Sex Assigned at Not on file Legal Sex Male 6:10 PM EDT Gender Identity Not on file Sexual Orientation Straight 03/02/2021 10 :04 AM EDT documented as of this encounter Miscellaneous Notes * Progress Notes - Vera Rosales - 06/21/2017 3:47 PM EST Refaxed records to per Mr Stauffer request. Received verbal confirmation from [facility] that records were received. documented in this encounter Plan of Treatment Not on file documented as of this encounter Visit Diagnoses Not on filedocumented in this encounter Additional Health Concerns Infection Onset Date Last Indicated Resolved Time COVID-19 Rule-Out 11/08/2021 11/08/2021 11/08/2021 8:06 AM EDT documented as of this encounter Care Teams Beef Specialist Relationship Specialty Start Date End Date Edgar Fournier MD [address] [place] [address] PCP - General 12/25/20 Enrique Griffith MD [address] [place] [address] Referring Physician Nephrology 01/08/21 documented as of this encounter
--- OUTSIDE RECORDS SUMMARY | 2024-07-12 13:07 | XMS_ITS | Encounter Summary ---
Author Organization [facility] Address [address] [place] [address] Care Team Providers Care Electromyographic Technician Name Role Phone Edgar Fournier MD Primary Care Provider [phone] Enrique Griffith MD Unavailable [phone] Encounter Details Date Type Department Care Team (Late st Contact Info) Description 06/02/2017 [facility] Encounter HISTORICAL OTTR [address] [place] [address] George Roxi Harish [facility] [address] [place] [address] Social History Tobacco Use Types Packs/Day Years Used Date Smoking Tobacco: Never Assessed Sex and Gender Information Value Date Recorded Sex Assigned at Not on file Legal Sex Male 6:10 PM EDT Gender Identity Not on file Sexual Orientation Straight 03/02/2021 10 :04 AM EDT documented as of this encounter Miscellaneous Notes * Progress Notes - George November - 06/02/2017 11:32 AM EDT Patient called requesting a coordinator call w/US results. documented in this encounter Plan of Treatment Not on file documented as of this encounter Visit Diagnoses Not on filedocumented in this encounter Additional Health Concerns Infection Onset Date Last Indicated Resolved Time COVID-19 Rule-Out 11/08/2021 11/08/2021 11/08/2021 8:06 AM EDT documented as of this encounter Care Teams Electromyographic Technician Relationship Specialty Start Date End Date Edgar Fournier MD [address] [place] [address] PCP - General 12/25/20 Enrique Griffith MD [address] [place] [phone] Referring Physician Nephrology 01/08/21 documented as of this encounter
--- OUTSIDE RECORDS SUMMARY | 2024-07-12 13:07 | XMS_ITS | Encounter Summary ---
Author Organization [facility] Address [address] [place] [address] Care Team Providers Care Svp Monetization Name Role Phone Edgar Fournier MD Primary Care Provider [phone] Enrique Griffith MD Unavailable [phone] Encounter Details Date Type Department Care Team (Late st Contact Info) Description 05/31/2017 [facility] Encounter HISTORICAL OTTR [address] [place] [address] George Roxi Harish [facility] [address] [place] [address] Social History Tobacco Use Types Packs/Day Years Used Date Smoking Tobacco: Never Assessed Sex and Gender Information Value Date Recorded Sex Assigned at Not on file Legal Sex Male 6:10 PM EDT Gender Identity Not on file Sexual Orientation Straight 03/02/2021 10 :04 AM EDT documented as of this encounter Miscellaneous Notes * Progress Notes - George November - 05/31/2017 2:02 PM EDT Patient called asking questions about high risk livers, meld scores and his chances of being transplanted sooner. He would also like to discuss US results. Advised would pass along msg to coordinatorto give him a call. He verbalized understanding. documented in this encounter Plan of Treatment Not on file documented as of this encounter Visit Diagnoses Not on filedocumented in this encounter Additional Health Concerns Infection Onset Date Last Indicated Resolved Time COVID-19 Rule-Out 11/08/2021 11/08/2021 11/08/2021 8:06 AM EDT documented as of this encounter Care Teams Svp Monetization Relationship Specialty Start Date End Date Edgar Fournier MD [address] [place] [address] PCP - General 12/25/20 Enrique Griffith MD [address] [place] [address] Referring Physician Nephrology 01/08/21 documented as of this encounter
--- OUTSIDE RECORDS SUMMARY | 2024-07-12 13:07 | XMS_ITS | Encounter Summary ---
Author Organization [facility] Address [address] [place] [address] Care Team Providers Care Dramatic Critic Name Role Phone Edgar Fournier MD Primary Care Provider Enrique Griffith MD Unavailable [phone] Encounter Details Date Type Department Care Team (Late st Contact Info) Description 09/22/2017 [facility] Encounter HISTORICAL OTTR [address] [place] [address] Maren Friedman MD [address] [facility] [address] [place] [address] Social History Tobacco Use Types Packs/Day Years Used Date Smoking Tobacco: Never Assessed Sex and Gender Information Value Date Recorded Sex Assigned at Not on file Legal Sex Male 6:10 PM EDT Gender Identity Not on file Sexual Orientation Straight 03/02/2021 10 :04 AM EDT documented as of this encounter Miscellaneous Notes * Progress Notes - Maren Friedman - 09/22/2017 1:07 PM EST Patient here for follow-up MELD 21 (INR 1.6, creatinine 1.5 down from 2.7, sodium 139, bilirubin 4.6) Recent admission for worsening kidney function, patient has no ascites, kidney function improved. 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, although TIPS investigation in April 2017 was unremarkable with graadient of 3 mmHg No encephalopathy, complaints of fatigue The procedure difficulties controlling blood pressure Was started on losartan, did not tolerate hydralazine Plan Repeat Doppler ultrasound in 2 months His clonidine when necessary 0.1 mg Return in 4 weeks documented in this encounter Plan of Treatment Not on file documented as of this encounter Procedures Procedure Name Priority Date/Time Associated Diagnosis Comments OTTR LAB RESULTS (MANUAL) Routine 09/22/2017 10:14 AM EST documented in this encounter Results * OTTR LAB RESULTS (MANUAL) (09/22/2017 10:14 AM EST) External Estimated GFR 53.62 EXTERNAL LAB 09/22/2017 10:1 4 AM EST Narrative EXTERNAL LAB - 09/22/2017 11:22 AM EST Automated LAB Interface us Historical Provider LAB BLOOD ORDERABLES Yoselin l Result EXTERNAL LAB documented in this encounter Visit Diagnoses Not on filedocumented in this encounter Additional Health Concerns Infection Onset Date Last Indicated Resolved Time COVID-19 Rule-Out 11/08/2021 11/08/2021 11/08/2021 8:06 AM EDT documented as of this encounter Care Teams Dramatic Critic Relationship Specialty Start Date End Date Edgar Fournier MD [address] [place] [address] PCP - General 12/25/20 Enrique Griffith MD [address] [place] [address] Referring Physician Nephrology 01/08/21 documented as of this encounter
--- OUTSIDE RECORDS SUMMARY | 2024-07-12 13:07 | XMS_ITS | Encounter Summary ---
Author Organization [facility] Address [address] [id number] Care Team Providers Care Adjunct Faculty For Medical Terminology Name Role Phone Edgar Fournier MD Primary Care Provider [phone] Enrique Griffith MD Unavailable [phone] Encounter Details Date Type Department Care Team (Late st Contact Info) Description 08/23/2017 [facility] Encounter HISTORICAL OTTR [address] [place] [address] Bridgett Márquez, RN [id number] [address] [phone] Social History Tobacco Use Types Packs/Day Years Used Date Smoking Tobacco: Never Assessed Sex and Gender Information Value Date Recorded Sex Assigned at Not on file Legal Sex Male 6:10 PM EDT Gender Identity Not on file Sexual Orientation Straight 03/02/2021 10 :04 AM EDT documented as of this encounter Miscellaneous Notes * Progress Notes - Bridgett Márquez - 08/23/2017 10:39 AM EST MELD Updated to 24 documented in this encounter Plan of Treatment Not on file documented as of this encounter Visit Diagnoses Not on filedocumented in this encounter Additional Health Concerns Infection Onset Date Last Indicated Resolved Time COVID-19 Rule-Out 11/08/2021 11/08/2021 11/08/2021 8:06 AM EDT documented as of this encounter Care Teams Adjunct Faculty For Medical Terminology Relationship Specialty Start Date End Date Edgar Fournier MD [address] [place] [address] PCP - General 12/25/20 Enrique Griffith MD [address] [place] [address] Referring Physician Nephrology 01/08/21 documented as of this encounter
--- OUTSIDE RECORDS SUMMARY | 2024-07-12 13:07 | XMS_ITS | Encounter Summary ---
Author Organization [facility] Address [address] [id number] Care Team Providers Care Magnetic Tester Name Role Phone Edgar Fournier MD Primary Care Provider [phone] Enrique Griffith MD Unavailable [phone] Encounter Details Date Type Department Care Team (Late st Contact Info) Description 06/21/2017 [facility] OT[facility] Encounter HISTORICAL OTTR [address] [place] [address] Vera Rosales [address] [phone] Social History Tobacco Use Types Packs/Day Years Used Date Smoking Tobacco: Never Assessed Sex and Gender Information Value Date Recorded Sex Assigned at Not on file Legal Sex Male 6:10 PM EDT Gender Identity Not on file Sexual Orientation Straight 03/02/2021 10 :04 AM EDT documented as of this encounter Miscellaneous Notes * Progress Notes - Vera Rosales - 06/21/2017 1:53 PM EST Ms Stauffer called - there is now an agreement with his insurance and - is needing another referral and the records to be faxed again. It needs to be faxed to the same parties as before. Please call Mr Stauffer if you have any questions about this [phone]. documented in this encounter Plan of Treatment Not on file documented as of this encounter Visit Diagnoses Not on filedocumented in this encounter Additional Health Concerns Infection Onset Date Last Indicated Resolved Time COVID-19 Rule-Out 11/08/2021 11/08/2021 11/08/2021 8:06 AM EDT documented as of this encounter Care Teams Magnetic Tester Relationship Specialty Start Date End Date Edgar Fournier MD [address] [place] [address] PCP - General 12/25/20 Enrique Griffith MD [address] [place] [phone] Referring Physician Nephrology 01/08/21 documented as of this encounter
--- OUTSIDE RECORDS SUMMARY | 2024-07-12 13:07 | XMS_ITS | Encounter Summary ---
Author Organization [facility] Address [address] [id number] Care Team Providers Care Film Writer Name Role Phone Edgar Fournier MD Primary Care Provider [phone] Enrique Girffith MD Unavailable [phone] Encounter Details Date Type Department Care Team (Late st Contact Info) Description 06/07/2017 [facility] OT[facility] Encounter HISTORICAL OTTR [address] [place] [address] Bridgett Márquez, RN [id number] [address] [id number] Social History Tobacco Use Types Packs/Day Years Used Date Smoking Tobacco: Never Assessed Sex and Gender Information Value Date Recorded Sex Assigned at Not on file Legal Sex Male 6:10 PM EDT Gender Identity Not on file Sexual Orientation Straight 03/02/2021 10 :04 AM EDT documented as of this encounter Miscellaneous Notes * Progress Notes - Bridgett Márquez - 06/07/2017 10:33 AM EDT Phd patient-discussed US results. Adv will have patient meet with surgeon during follow-up visit [id number]. Msg to AG to add on surgeon visit to 06-30-17 visit. documented in this encounter Plan of Treatment Not on file documented as of this encounter Visit Diagnoses Not on filedocumented in this encounter Additional Health Concerns Infection Onset Date Last Indicated Resolved Time COVID-19 Rule-Out 11/08/2021 11/08/2021 11/08/2021 8:06 AM EDT documented as of this encounter Care Teams Film Writer Relationship Specialty Start Date End Date Edgar Fournier MD [address] [place] [address] PCP - General 12/25/20 Enrique Griffith MD [address] [place] [phone] Referring Physician Nephrology 01/08/21 documented as of this encounter
--- OUTSIDE RECORDS SUMMARY | 2024-07-12 13:07 | XMS_ITS | Encounter Summary ---
Author Organization [facility] Address [address] [place] [address] Care Team Providers Care Ext Js Developer Name Role Phone Edgar Fournier MD Primary Care Provider [phone] Enrique Griffith MD Unavailable [phone] Encounter Details Date Type Department Care Team (Late st Contact Info) Description 08/28/2019 [facility] OT[facility] Encounter HISTORICAL OTTR [address] [place] [address] Tona Chaudhari [facility] [address] [phone] Social History Tobacco Use Types Packs/Day Years Used Date Smoking Tobacco: Never Assessed Sex and Gender Information Value Date Recorded Sex Assigned at Not on file Legal Sex Male 6:10 PM EDT Gender Identity Not on file Sexual Orientation Straight 03/02/2021 10 :04 AM EDT documented as of this encounter Miscellaneous Notes * Progress Notes - Tona Chaudhari - 08/28/2019 3:32 PM EST Called and spoke with Renita this afternoon who told me that she had already spoke with someone in vascular surgery and he is scheduled for 09/30/19. * Progress Notes - Wesley ReddyMental Telepathist - 08/28/2019 2:51 PM EST Rec'd fwd'd VM, from [facility], requesting scheduling for vein mapping forpt., pt. has dialysis MWF, requested notification at: [phone]. Fwd'd VM to surgical team, [id number]. documented in this encounter Plan of Treatment Not on file documented as of this encounter Visit Diagnoses Not on filedocumented in this encounter Additional Health Concerns Infection Onset Date Last Indicated Resolved Time COVID-19 Rule-Out 11/08/2021 11/08/2021 11/08/2021 8:06 AM EDT documented as of this encounter Care Teams Ext Js Developer Relationship Specialty Start Date End Date Edgar Fournier MD [address] [place] [address] PCP - General 12/25/20 Enrique Griffith MD [address] [place] [phone] Referring Physician Nephrology 01/08/21 documented as of this encounter
--- OUTSIDE RECORDS SUMMARY | 2024-07-12 13:07 | XMS_ITS | Encounter Summary ---
Author Organization [facility] Address [address] [place] [address] Care Team Providers Care Printer Floor Covering Assistant Name Role Phone Edgar Fournier MD Primary Care Provider Enrique Griffith MD Unavailable [phone] Encounter Details Date Type Department Care Team (Late st Contact Info) Description 09/07/2017 [facility] OTTR Encounter HISTORICAL OTTR [address] [place] [address] Sandrita Ferguson, EDGE INKER [address] [facility] [address] [place] [address] Social History Tobacco Use Types Packs/Day Years Used Date Smoking Tobacco: Never Assessed Sex and Gender Information Value Date Recorded Sex Assigned at Not on file Legal Sex Male 6:10 PM EDT Gender Identity Not on file Sexual Orientation Straight 03/02/2021 10 :04 AM EDT documented as of this encounter Miscellaneous Notes * Progress Notes - Sandrita Ferguson - 09/07/2017 5:03 PM EST 42yo M w/PMH of SAL cirrhosis s/p [...] at home. We will ask our social media manager to reassess the patient at his next transplant hepatology clinic visit. He should follow-up with transplant hepatology clinic 2 weeks after discharge. 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 It appears that urine still has not been collected. -Please obtain liver ultrasound to assess for possible portal vein thrombosis. -Consider IR for diagnostic paracentesis - continue rifaximin and lactulose, including lactulose enemas Chronic abdominal pain -CT abdomen and pelvis with no acute changes documented in this encounter Plan of Treatment Not on file documented as of this encounter Procedures Procedure Name Priority Date/Time Associated Diagnosis Comments OTTR LAB RESULTS (MANUAL) Routine 09/06/2017 8:40 PM EST documented in this encounter Results * OTTR LAB RESULTS (MANUAL) (09/06/2017 8:40 PM EST) External Estimated GFR 69.91 EXTERNAL LAB 09/06/2017 8:40 PM EST Narrative EXTERNAL LAB - 09/06/2017 9:13 PM EST Automated LAB Interface us Historical Provider LAB BLOOD ORDERABLES Yoselin robles Result EXTERNAL LAB documented in this encounter Visit Diagnoses Not on filedocumented in this encounter Additional Health Concerns Infection Onset Date Last Indicated Resolved Time COVID-19 Rule-Out 11/08/2021 11/08/2021 11/08/2021 8:06 AM EDT documented as of this encounter Care Teams Printer Floor Covering Assistant Relationship Specialty Start Date End Date Edgar Fournier MD [address] [place] [address] PCP - General 12/25/20 Enrique Griffith MD [address] [place] [phone] Referring Physician Nephrology 01/08/21 documented as of this encounter
--- OUTSIDE RECORDS SUMMARY | 2024-07-12 13:07 | XMS_ITS | Encounter Summary ---
Author Organization [facility] Address [address] [place] [address] Care Team Providers Care Firmware Software Verification Engineer Name Role Phone Edgar Fournier MD Primary Care Provider [phone] Enrique Griffith MD Unavailable [phone] Encounter Details Date Type Department Care Team (Late st Contact Info) Description 07/14/2017 [facility] OTTR Encounter HISTORICAL OTTR [address] [place] [address] Raquel Toribio, [facility] [address] [phone] Social History Tobacco Use Types Packs/Day Years Used Date Smoking Tobacco: Never Assessed Sex and Gender Information Value Date Recorded Sex Assigned at Not on file Legal Sex Male 6:10 PM EDT Gender Identity Not on file Sexual Orientation Straight 03/02/2021 10 :04 AM EDT documented as of this encounter Miscellaneous Notes * Progress Notes - Social Gisselle Reddy - 07/14/2017 2:24 PM EST Pt called and left message asking to speak to SW. SW returned call but no answer and no way to leave a message. documented in this encounter Plan of Treatment Not on file documented as of this encounter Visit Diagnoses Not on filedocumented in this encounter Additional Health Concerns Infection Onset Date Last Indicated Resolved Time COVID-19 Rule-Out 11/08/2021 11/08/2021 11/08/2021 8:06 AM EDT documented as of this encounter Care Teams Firmware Software Verification Engineer Relationship Specialty Start Date End Date Edgar Fournier MD [address] [place] [address] PCP - General 12/25/20 Enrique Griffith MD [address] [place] [address] Referring Physician Nephrology 01/08/21 documented as of this encounter
--- OUTSIDE RECORDS SUMMARY | 2024-07-12 13:07 | XMS_ITS | Encounter Summary ---
Author Organization [facility] Address [address] [id number] Care Team Providers Care Childhood Development Teacher Name Role Phone Edgar Fournier MD Primary Care Provider [phone] Enrique Griffith MD Unavailable [phone] Reason for Visit * Reason Comments Reschedule Patient wants to res chedule 02/04/21 ICE to 01/28/21. Encounter Details Date Type Department Care Team (Late st Contact Info) Description 01/13/[address] [facility] [address] [facility] [address] [place] [phone] Janeth Navarrete [facility] [address] [phone] Reschedule (Patient wants to reschedule 02/04/21 ICE to 01/28/21.) Social History Tobacco Use Types Packs/Day Years Used Date Smoking Tobacco: Never Alcohol Use Standard Drinks/Week Comments [...] encounter Miscellaneous Notes * Telephone Encounter - Navarrete, Janeth Caceres - 01/13/2021 11:23 AM EDT Received call from patient stating he needs to reschedule his 02/04/2021 initial clinic evaluation.Pt's 02/04/21 initial clinic evaluation has been resheduled to 01/28/2021 at 0820, 0720 arrival. Informed patient that I will only be sending a new appointment letter this time, but he still needs to bring completed paperwork with him to this appointment. He verbalized understanding of all. Updated appointments in [employer]. Mailed updated appointment letter to patient copied referring MD and dialysis center. documented in this encounter Plan of Treatment Not on file documented as of this encounter Visit Diagnoses Not on filedocumented in this encounter Care Teams Childhood Development Teacher Relationship Specialty Start Date End Date Edgar Fournier MD [address] [place] [address] PCP - General 12/25/20 Enrique Griffith MD [address] [place] [id number] Referring Physician Nephrology 01/08/21 documented as of this encounter
--- OUTSIDE RECORDS SUMMARY | 2024-07-12 13:07 | XMS_ITS | Encounter Summary ---
Author Organization [facility] Address [address] [phone] Care Team Providers Care Sales Audit Clerk Name Role Phone Edgar Fournier MD Primary Care Provider [phone] Enrique Griffith MD Unavailable [phone] Encounter Details Date Type Department Care Team (Late st Contact Info) Description 08/23/2017 [facility] En[facility] HISTORICAL OTTR [address] [place] [address] Bridgett Márquez, RN [facility] [id number] [address] [place] [address] Social History Tobacco Use Types Packs/Day Years Used Date Smoking Tobacco: Never Assessed Sex and Gender Information Value Date Recorded Sex Assigned at Not on file Legal Sex Male 6:10 PM EDT Gender Identity Not on file Sexual Orientation Straight 03/02/2021 10 :04 AM EDT documented as of this encounter Miscellaneous Notes * Progress Notes - Bridgett Márquez - 08/23/2017 8:24 AM EST Need updated labs for patient. Phd patient- no answer documented in this encounter Plan of Treatment Not on file documented as of this encounter Visit Diagnoses Not on filedocumented in this encounter Additional Health Concerns Infection Onset Date Last Indicated Resolved Time COVID-19 Rule-Out 11/08/2021 11/08/2021 11/08/2021 8:06 AM EDT documented as of this encounter Care Teams Sales Audit Clerk Relationship Specialty Start Date End Date Edgar Fournier MD [address] [place] [address] PCP - General 12/25/20 Enrique Griffith MD [address] [place] [address] Referring Physician Nephrology 01/08/21 documented as of this encounter
--- OUTSIDE RECORDS SUMMARY | 2024-07-12 13:07 | XMS_ITS | Encounter Summary ---
Author Organization [facility] Address [address] [phone] Care Team Providers Care Graphite Grinder Name Role Phone Edgar Fournier MD Primary Care Provider [phone] Enrique Griffith MD Unavailable [phone] Encounter Details Date Type Department Care Team (Late st Contact Info) Description 06/05/2017 [facility] Encounter HISTORICAL OTTR [address] [place] [address] Bridgett Márquez, RN [facility] LIVER [id number] [address] [phone] Social History Tobacco Use Types Packs/Day Years Used Date Smoking Tobacco: Never Assessed Sex and Gender Information Value Date Recorded Sex Assigned at Not on file Legal Sex Male 6:10 PM EDT Gender Identity Not on file Sexual Orientation Straight 03/02/2021 10 :04 AM EDT documented as of this encounter Miscellaneous Notes * Progress Notes - Bridgett Márquez - 06/05/2017 10:40 AM EDT US Abdomen complted. IMPRESSION: 1. Cirrhosis 2. Patent hepatic vasculature with appropriate flow directionality. Patent TIPS with velocities within normal range. However, there is slow flow within the extrahepatic main portal vein compared to the previous study which could represent early TIPS dysfunction. 3. No ascites. Will have provider review. documented in this encounter Plan of Treatment Not on file documented as of this encounter Visit Diagnoses Not on filedocumented in this encounter Additional Health Concerns Infection Onset Date Last Indicated Resolved Time COVID-19 Rule-Out 11/08/2021 11/08/2021 11/08/2021 8:06 AM EDT documented as of this encounter Care Teams Graphite Grinder Relationship Specialty Start Date End Date Edgar Fournier MD [address] [place] [address] PCP - General 12/25/20 Enrique Griffith MD [address] [place] [address] Referring Physician Nephrology 01/08/21 documented as of this encounter
--- OUTSIDE RECORDS SUMMARY | 2024-07-12 13:07 | XMS_ITS | Encounter Summary ---
Author Organization [facility] Address [address] [phone] Care Team Providers Care Cloth Brushing And Sueding Supervisor Name Role Phone Edgar Fournier MD Primary Care Provider [phone] Enrique Griffith MD Unavailable [phone] Encounter Details Date Type Department Care Team (Late st Contact Info) Description 05/31/2017 [facility] Encounter HISTORICAL OTTR [address] [place] [address] Jaren Naqvi MD [address] [place] [address] Social History Tobacco Use Types Packs/Day Years Used Date Smoking Tobacco: Never Assessed Sex and Gender Information Value Date Recorded Sex Assigned at Not on file Legal Sex Male 6:10 PM EDT Gender Identity Not on file Sexual Orientation Straight 03/02/2021 10 :04 AM EDT documented as of this encounter Miscellaneous Notes * Progress Notes - Jaren Naqvi - 05/31/2017 11:41 AM EDT 42 year-old white man with 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 SAL Cirrhosis MELD-Na 20. Listed for liver transplant here and at . Continue to monitor MELD score. Ascites/LE edema S/P TIPS: TIPS placed on October 18, 2016, with revision in 04/2017. US ABD done today, pending result. On Lasix 40 mg PRN for LE edema. Enforced low sodium diet. HE: Multiple hospitalization for HE. On Lactulose 45 cc TID, Rifaximin and Zinc sulfate. Advised to titrate Lactulose for 3-4 BM daily. Continue Rifaximin and Zinc. Advised not to drive. EVB S/P TIPS (10/28) with TIPS revision (04/30): Presented with major EVB in 10/2016 required TIPS placement. 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 US ABD repeated today, pending result. He takes Carvedilol 25 mg BID for HTN. Educated on s/s of variceal hemorrhage and advised to report to ER should they occur Should not need to repeat EGD as long as HgB stable, TIPS patent, and no s/s of bleeding HCC Surveillance - US ABD 03/2017 no lesions. Had US ABD today, will follow. Q6 monthly surveillance with imaging and AFP. Diabetes Mellitus, type 2: Managed by PCP - a1c 9.4 last year, 6.7 from 03/2017, but he is anemic. Continue management per PCP. Vitamine D Deficiency: On vitamin D ergocalciferol 50,000 weekly. vit d level 04 May 2016 HTN: BP 125/85 with a HR 78. Continue carvedilol Health Maintenance Immune to HAV/HBV Colonoscopy October 2016 - Perianal examination was normal. The entire examined ileum contained red blood. Clotted and red blood was found in the entire colon. But no lesions or diverticula were seen. Transplant Status: Listed Follow up in 4 weeks documented in this encounter Plan of Treatment Not on file documented as of this encounter Procedures Procedure Name Priority Date/Time Associated Diagnosis Comments OTTR LAB RESULTS (MANUAL) Routine 05/31/2017 8:44 AM EDT documented in this encounter Results * OTTR LAB RESULTS (MANUAL) (05/31/2017 8:44 AM EDT) External Estimated GFR 59.28 EXTERNAL LAB 05/31/2017 8:44 AM EDT Narrative EXTERNAL LAB - 05/31/2017 9:37 AM EDT Automated LAB Interface us Historical Provider LAB BLOOD ORDERABLES Yoselin l Result EXTERNAL LAB documented in this encounter Visit Diagnoses Not on filedocumented in this encounter Additional Health Concerns Infection Onset Date Last Indicated Resolved Time COVID-19 Rule-Out 11/08/2021 11/08/2021 11/08/2021 8:06 AM EDT documented as of this encounter Care Teams Cloth Brushing And Sueding Supervisor Relationship Specialty Start Date End Date Edgar Fournier MD [address] [place] [address] PCP - General 12/25/20 Enrique Griffith MD [address] [place] [address] Referring Physician Nephrology 01/08/21 documented as of this encounter
--- OUTSIDE RECORDS SUMMARY | 2024-07-12 13:07 | XMS_ITS | Encounter Summary ---
Author Organization [facility] Address [address] [place] [address] Care Team Providers Care Junior Software Engineer Name Role Phone Edgar Fournier MD Primary Care Provider [phone] Enrique Griffith MD Unavailable [phone] Encounter Details Date Type Department Care Team (Late st Contact Info) Description 10/02/2017 [facility] Committee HISTORICAL OTTR [address] [place] [address] Raquel Toribio, [facility] [address] [phone] Social History Tobacco Use Types Packs/Day Years Used Date Smoking Tobacco: Never Assessed Sex and Gender Information Value Date Recorded Sex Assigned at Not on file Legal Sex Male 6:10 PM EDT Gender Identity Not on file Sexual Orientation Straight 03/02/2021 10 :04 AM EDT documented as of this encounter Miscellaneous Notes * Progress Notes - Social Gisselle Reddy - 10/02/2017 2:27 PM EST SW discussed concerns about financial situation with committee. Not recommending that he be inactive, but need team to be aware. * Progress Notes - Jaren Naqvi - 06/30/2017 7:38 PM EST 42-year-old white man with history significant for SAL cirrhosis decompensated with EVB S/P TIPS (10/2016), ascites and hepatic encephalopathy, diabetes and hypertension, who is listed for liver transplant here at [facility], came in for follow-up. SAL Cirrhosis MELD-Na 21. Listed for liver transplant here and at . Continue to monitor MELD score. Ascites/LE edema S/P TIPS: TIPS placed in October,. US in showed possible TIPS stenosis. He underwent Hep Veno with pressure measurement which showed normal functioning TIPS US ABD 05/2017: Patent TIPS with velocities within normal range. However, there is slow flow withinthe extrahepatic main portal vein compared to the previous study which could represent early TIPS dysfunction. On Lasix 40 mg PRN for LE edema. Enforced low sodium diet. Repeat US ABD. HE: Multiple hospitalization for HE. On Lactulose 45 cc TID, Rifaximin and Zinc sulfate. Advised to titrate Lactulose for 3-4 BM daily. Continue Rifaximin and Zinc. Advised not to drive. EVB S/P TIPS (10/28): Presented with major EVB in 10/2016 required TIPS placement. TIPS as above. He takes Carvedilol 25 mg BID for HTN. Educated on s/s of variceal hemorrhage and advised to report to ER should they occur Should not need to repeat EGD as long as HgB stable, TIPS patent, and no S/S of bleeding HCC Surveillance: US ABD 03/2017and 05/2017 no lesions. Q6 monthly surveillance with imaging and AFP. Transplant Status: Listed for liver transplant. RTC in 6 weeks. * Progress Notes - Jack Ansari - 02/27/2017 10:11 AM EDT 24 Feb 2017: 41 year old male. with SAL cirrhosis, listed for transplant with current MELD of 18. TIPS placed on 18 October 2016, ascites now controlled. Nothing acute today. Does report some decreasedcognitive function, particularly with higher level functions like math and handling money. Has moodchanges, irritability, and fatigue. This is some tolerable worsening of HE following TIPS, Says this really flared up recently when constipated for a couple of days, but has been taking his lactuloseregularly and Xifaxan. No melena or hematemesis. No jaundice or shortness of breath. History also remarkable for periodic flares of acute pancreatitis requiring ER visit, but none recently. RTC in 4 week, Remain actively listed. He should have colonoscorpy on 28 February, Bridgett if you can see if we can obtain the report. * Progress Notes - Jack Ansari - 01/23/2017 9:42 AM EDT 17 January 2017: 41 y/o male, listed for liver transplant, MELD improved to 17, difficult medical course over past 3 months with GI bleed, banding and subsequent TIPS placement on 18 October. Required largetransfusion. Fortunately doing well now. He says, best I feel since I've been coming here . No apparent ascites. No overt HE, no further melena or hematemesis. Last US 20 December, patent TIPS with appropriate velocities. H/H stable today. He will get local labs in 2 weeks, then RTC in 4 weeks. Remain actively listed. * Progress Notes - Maile Persaud - 12/28/2016 10:39 AM EDT 41M decompensated SAL cirrhosis Listed. 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 Had melena/hematochezia after TIPS in October, had post-banding ulcers and colonoscopy then showed blood in TI/colon,otherwise negative. Recently admitted for hematochezia/melena/lower abd pain in December 18-. EGD showed nonsevere esophagitis, without stigmata of bleed, no varices, food in stomach. Dr. Mora recommended colonoscopy as outpt. Hgb 8.5 (usually 9.1-10)-- even though melena resolved, still unclear of etiology of melena/hematochezia after TIPS. TIPS patent, normal velocities on recent Doppler in December - Will ask [facility] to please arrange for colonoscopy and video capsule endoscopy in [place] (both procedures in 1 day),indication: episodes of melena/hematochezia, anemia, s/p TIPS 10/2016, EGD no varices. I sent prescription for Mg citrate and PEG to his pharmacy through [facility]. RTC 1-2 weeks after endoscopy documented in this encounter Plan of Treatment Not on file documented as of this encounter Visit Diagnoses Not on filedocumented in this encounter Additional Health Concerns Infection Onset Date Last Indicated Resolved Time COVID-19 Rule-Out 11/08/2021 11/08/2021 11/08/2021 8:06 AM EDT documented as of this encounter Care Teams Junior Software Engineer Relationship Specialty Start Date End Date Edgar Fournier MD [address] [place] [address] PCP - General 12/25/20 Enrique Griffith MD [address] [place] [address] Referring Physician Nephrology 01/08/21 documented as of this encounter
--- OUTSIDE RECORDS SUMMARY | 2024-07-12 13:07 | XMS_ITS | Encounter Summary ---
Author Organization [facility] [place] [facility] Address [address] [place] [address] Care Team Providers Care Mulling Machine Operator Name Role Phone Edgar Fournier MD Primary Care Provider [phone] Enrique Griffith MD Unavailable [phone] Encounter Details Date Type Department Care Team (Late st Contact Info) Description 08/11/2017 [facility] Encounter HISTORICAL OTTR [address] [place] [address] Shara Huff, DELICATESSEN STORE MANAGER, DNP [address] [facility] [address] [place] [address] Social History Tobacco Use Types Packs/Day Years Used Date Smoking Tobacco: Never Assessed Sex and Gender Information Value Date Recorded Sex Assigned at Not on file Legal Sex Male 6:10 PM EDT Gender Identity Not on file Sexual Orientation Straight 03/02/2021 10 :04 AM EDT documented as of this encounter Miscellaneous Notes * Progress Notes - Shara Huff - 08/11/2017 3:25 PM EST 42 YO M with decompensated SAL cirrhosis, actively listed for transplant (at and [place]), who was admitted on 08/09 with c/o profound weakness. Pt describes having trouble sitting and standing after using the restroom with tremor. He states he feels improved after having some fluids whileinpatient and is able to walk up and down the hallway. He was evaluated by PT/OT while inpatient who were unable to find any evidence of diminished strength on PT evaluation. Pt to remain listed active with F/U in Transplant Clinic with Transplant Hepatology in 1-2 weeks. He continues to have elevation in his creatinine, is receiving fluid resuscitation with albumin as well as crystalloid, and walking in the hallways independently. Plans for DC per primary team once creatinine improves. TXP to sign off at this time. Recommend Hepatology consult for assistance with ci rrhosis management concerning diuretics, etc. Discussed with patient the possibility of being inactivated from the transplant list for physical debilitation. * Progress Notes - Bridgett Márquez - 08/04/2017 10:41 AM EST Rec'd ph call from Dr Brooks at ED. He adv patient was stable, ammonia elevated, but patient notdisoriented or symptomatic. They will be sending patient home. * Progress Notes - Bridgett Márquez - 08/03/2017 2:34 PM EST Rec'dph call from patient. He adv he is not feeling well, shaking more, and vomiting. He will come to ED. * Progress Notes - Bridgett Márquez - 07/27/2017 10:18 AM EST Need updated labs for MELD update. Phd patient -no voicemail set up on phone. * Progress Notes - Barry Topstitcher Zigzag - 07/26/2017 10:07 AM EST Spoke to Mr. Stauffer. is unable to work now as he needs more help at home. They are able to paymortgage but having trouble with utility bills. Suggested that he contact [employer] in his county as they are able to help people with utilities. Also advised him to contact his Medicaid Carton Marker Machine for questions about addition assistance at home. SW will follow up as needed. * Progress Notes - Vazquez, November - 07/26/2017 9:58 AM EST Patient called to confirm 08/15 appt and also speak to SW. Transferred to SW and also mentioned that she had tried to return call on 07/14 but no VM was available for her to leave a message. He verbalized understanding. documented in this encounter Plan of Treatment Not on file documented as of this encounter Procedures Procedure Name Priority Date/Time Associated Diagnosis Comments OTTR LAB RESULTS (MANUAL) Routine 08/11/2017 5:24 AM EST OTTR LAB RESULTS (MANUAL) Routine 08/10/2017 4:32 AM EST OTTR LAB RESULTS (MANUAL) Routine 08/09/2017 3:06 PM EST OTTR LAB RESULTS (MANUAL) Routine 08/03/2017 11:29 PM EST documented in this encounter Results * OTTR LAB RESULTS (MANUAL) (08/11/2017 5:24 AM EST) External Estimated GFR 47.63 EXTERNAL LAB 08/11/2017 5:24 AM EST Narrative EXTERNAL LAB - 08/11/2017 7:26 AM EST Automated LAB Interface us Historical Provider LAB BLOOD ORDERABLES Yoselin robles Result EXTERNAL LAB * OTTR LAB RESULTS (MANUAL) (08/10/2017 4:32 AM EST) External Estimated GFR 52.27 EXTERNAL LAB 08/10/2017 4:32 AM EST Narrative EXTERNAL LAB - 08/10/2017 5:24 AM EST Automated LAB Interface Historical Provider MD LAB BLOOD ORDERABLES Yoselin l Result Performing Organization Address [facility] Phone Number EXTERNAL LAB * OTTR LAB RESULTS (MANUAL) (08/09/2017 3:06 PM EST) External Estimated GFR 52.27 EXTERNAL LAB 08/09/2017 3:06 PM EST Narrative EXTERNAL LAB - 08/09/2017 3:48 PM EST Automated LAB Interface Historical Provider MD LAB BLOOD ORDERABLES Yoselin l Result Performing Organization Address [facility] de Phone Number EXTERNAL LAB * OTTR LAB RESULTS (MANUAL) (08/03/2017 11:29 PM EST) External Estimated GFR 56.45 EXTERNAL LAB 08/03/2017 11:2 9 PM EST Narrative EXTERNAL LAB - 08/04/2017 1:06 AM EST Automated LAB Interface Historical Provider MD LAB BLOOD ORDERABLES Yoselin l Result Performing Organization Address [facility] Phone Number EXTERNAL LAB documented in this encounter Visit Diagnoses Not on filedocumented in this encounter Additional Health Concerns Infection Onset Date Last Indicated Resolved Time COVID-19 Rule-Out 11/08/2021 11/08/2021 11/08/2021 8:06 AM EDT documented as of this encounter Care Teams Mulling Machine Operator Relationship Specialty Start Date End Date Edgar Fournier MD [address] [place] [address] PCP - General 12/25/20 Enrique Griffith MD [address] [place] [address] Referring Physician Nephrology 01/08/21 documented as of this encounter
--- OUTSIDE RECORDS SUMMARY | 2024-07-12 13:07 | XMS_ITS | Encounter Summary ---
Author Organization [facility] Address [address] [phone] Care Team Providers Care Visual Education Teacher Name Role Phone Edgar Fournier MD Primary Care Provider [phone] Enrique Griffith MD Unavailable [phone] Encounter Details Date Type Department Care Team (Late st Contact Info) Description 10/09/2017 [facility] Encounter HISTORICAL OTTR [address] [place] [address] Bridgett Márquez RN [facility] L[facility] [id number] [address] [phone] Social History Tobacco Use Types Packs/Day Years Used Date Smoking Tobacco: Never Assessed Sex and Gender Information Value Date Recorded Sex Assigned at Not on file Legal Sex Male 6:10 PM EDT Gender Identity Not on file Sexual Orientation Straight 03/02/2021 10 :04 AM EDT documented as of this encounter Miscellaneous Notes * Progress Notes - Bridgett Márquez - 10/09/2017 9:26 AM EST Per Carey at , patient had liver transplant 10-08-17 at . Will remove from [facility] and close listing. documented in this encounter Plan of Treatment Not on file documented as of this encounter Visit Diagnoses Not on filedocumented in this encounter Additional Health Concerns Infection Onset Date Last Indicated Resolved Time COVID-19 Rule-Out 11/08/2021 11/08/2021 11/08/2021 8:06 AM EDT documented as of this encounter Care Teams Visual Education Teacher Relationship Specialty Start Date End Date Edgar Fournier MD [address] [place] [address] PCP - General 12/25/20 Enrique Griffith MD [address] [place] [address] Referring Physician Nephrology 01/08/21 documented as of this encounter
--- OUTSIDE RECORDS SUMMARY | 2024-07-12 13:07 | XMS_ITS | Encounter Summary ---
Author Organization [facility] Address [address] [id number] Care Team Providers Care Director Stars Name Role Phone Edgar Fournier MD Primary Care Provider [phone] Enrique Griffith MD Unavailable [phone] Encounter Details Date Type Department Care Team (Late st Contact Info) Description 09/13/2017 [facility] OTTR Encounter HISTORICAL OTTR [address] [place] [address] Bridgett Márquez RN [facility] [id number] [address] [phone] Social History Tobacco Use Types Packs/Day Years Used Date Smoking Tobacco: Never Assessed Sex and Gender Information Value Date Recorded Sex Assigned at Not on file Legal Sex Male 6:10 PM EDT Gender Identity Not on file Sexual Orientation Straight 03/02/2021 10 :04 AM EDT documented as of this encounter Miscellaneous Notes * Progress Notes - Bridgett Márquez - 09/13/2017 3:59 PM EST Patient needs to be schedule to RTC post hospital d/c. Msg to AG to schedule. documented in this encounter Plan of Treatment Not on file documented as of this encounter Visit Diagnoses Not on filedocumented in this encounter Additional Health Concerns Infection Onset Date Last Indicated Resolved Time COVID-19 Rule-Out 11/08/2021 11/08/2021 11/08/2021 8:06 AM EDT documented as of this encounter Care Teams Director Stars Relationship Specialty Start Date End Date Edgar Fournier MD [address] [place] [address] PCP - General 12/25/20 Enrique Griffith MD [address] [place] [address] Referring Physician Nephrology 01/08/21 documented as of this encounter
--- OUTSIDE RECORDS SUMMARY | 2024-07-12 13:07 | XMS_ITS | Encounter Summary ---
Author Organization [facility] Address [address] [place] [address] Care Team Providers Care Major League Baseball Umpire Name Role Phone Edgar Fournier MD Primary Care Provider [phone] Enrique Griffith MD Unavailable [phone] Encounter Details Date Type Department Care Team (Late st Contact Info) Description 06/22/2017 [facility] OTTR Encounter HISTORICAL OTTR [address] [place] [address] Vera [address] [phone] Social History Tobacco Use Types Packs/Day Years Used Date Smoking Tobacco: Never Assessed Sex and Gender Information Value Date Recorded Sex Assigned at Not on file Legal Sex Male 6:10 PM EDT Gender Identity Not on file Sexual Orientation Straight 03/02/2021 10 :04 AM EDT documented as of this encounter Miscellaneous Notes * Progress Notes - Vera Rosales - 06/22/2017 10:39 AM EST Spoke to renetta - requesting insurance information for mr Stauffer - faxed copy of card. documented in this encounter Plan of Treatment Not on file documented as of this encounter Visit Diagnoses Not on filedocumented in this encounter Additional Health Concerns Infection Onset Date Last Indicated Resolved Time COVID-19 Rule-Out 11/08/2021 11/08/2021 11/08/2021 8:06 AM EDT documented as of this encounter Care Teams [employer] League Baseball Umpire Relationship Specialty Start Date End Date Edgar Fournier MD [address] [place] [address] PCP - General 12/25/20 Enrique Griffith MD [address] [place] [address] Referring Physician Nephrology 01/08/21 documented as of this encounter
--- OUTSIDE RECORDS SUMMARY | 2024-07-12 13:07 | XMS_ITS | Encounter Summary ---
Author Organization [facility] Address [address] [id number] Care Team Providers Care Telephone Surveyor Name Role Phone Edgar Fournier MD Primary Care Provider [phone] Enrique Griffith MD Unavailable [phone] Encounter Details Date Type Department Care Team (Late st Contact Info) Description 08/23/2017 [facility] OTTR Encounter HISTORICAL OTTR [address] [place] [address] Bridgett Márquez, RN [facility] [id number] [address] [phone] Social History Tobacco Use Types Packs/Day Years Used Date Smoking Tobacco: Never Assessed Sex and Gender Information Value Date Recorded Sex Assigned at Not on file Legal Sex Male 6:10 PM EDT Gender Identity Not on file Sexual Orientation Straight 03/02/2021 10 :04 AM EDT documented as of this encounter Miscellaneous Notes * Progress Notes - Bridgett Márquez - 08/23/2017 8:20 AM EST Patient to RTC 1-17-18. Need to add Renal US to visit if possible, if not schedule for next available appt time. Orders in SCM, msg to AG to schedule. documented in this encounter Plan of Treatment Not on file documented as of this encounter Visit Diagnoses Not on filedocumented in this encounter Additional Health Concerns Infection Onset Date Last Indicated Resolved Time COVID-19 Rule-Out 11/08/2021 11/08/2021 11/08/2021 8:06 AM EDT documented as of this encounter Care Teams Telephone Surveyor Relationship Specialty Start Date End Date Edgar Fournier MD [address] [place] [address] PCP - General 12/25/20 Enrique Grififth MD [address] [place] [phone] Referring Physician Nephrology 01/08/21 documented as of this encounter
--- OUTSIDE RECORDS SUMMARY | 2024-07-12 13:07 | XMS_ITS | Encounter Summary ---
Author Organization [facility] Address [address] [id number] Care Team Providers Care Centrifugal Wax Molder Name Role Phone Edgar Fournier MD Primary Care Provider [phone] Enrique Griffith MD Unavailable [phone] Encounter Details Date Type Department Care Team (Late st Contact Info) Description 08/23/2017 [facility] OTTR Encounter HISTORICAL OTTR [address] [place] [address] Bridgett Máqruez, RN [id number] [address] [phone] Social History Tobacco Use Types Packs/Day Years Used Date Smoking Tobacco: Never Assessed Sex and Gender Information Value Date Recorded Sex Assigned at Not on file Legal Sex Male 6:10 PM EDT Gender Identity Not on file Sexual Orientation Straight 03/02/2021 10 :04 AM EDT documented as of this encounter Miscellaneous Notes * Progress Notes - Bridgett Márquez - 08/23/2017 10:20 AM EST Rec'd ph call from Rom at [facility]. She is working on dual listing for patient. Forwarded recent scopes and scans. She will fax over labs from 1-8-17. documented in this encounter Plan of Treatment Not on file documented as of this encounter Visit Diagnoses Not on filedocumented in this encounter Additional Health Concerns Infection Onset Date Last Indicated Resolved Time COVID-19 Rule-Out 11/08/2021 11/08/2021 11/08/2021 8:06 AM EDT documented as of this encounter Care Teams Centrifugal Wax Molder Relationship Specialty Start Date End Date Edgar Fournier MD [address] [place] [address] PCP - General 12/25/20 Enrique Griffith MD [address] [place] [phone] Referring Physician Nephrology 01/08/21 documented as of this encounter
--- OUTSIDE RECORDS SUMMARY | 2024-07-12 13:07 | XMS_ITS | Encounter Summary ---
Author Organization [facility] Address [address] [place] [address] Care Team Providers Care Electrologist Name Role Phone Edgar Fournier MD Primary Care Provider [phone] Enrique Griffith MD Unavailable [phone] Encounter Details Date Type Department Care Team (Late st Contact Info) Description 01/15/[address] [facility] [address] [facility] [address] [place] [address] Physician Reddy MD [address] [place] [address] Social History Tobacco Use Types Packs/Day [...] Reading Time Taken Comments Blood Pressure 150/89 05/31/2016 10:58 AM EDT Pulse - - Temperature - - Respiratory Rate - - Oxygen Saturation - - Inhaled Oxygen Concentration - - Weight - - Height - - Body Mass Index - - documented in this encounter Plan of Treatment Not on file documented as of this encounter Visit Diagnoses Not on filedocumented in this encounter Care Teams Electrologist Relationship Specialty Start Date End Date Edgar Fournier MD [address] [place] [address] PCP - General 12/25/20 Enrique Griffith MD [address] [place] [phone] Referring Physician Nephrology 01/08/21 documented as of this encounter
--- OUTSIDE RECORDS SUMMARY | 2024-07-12 13:07 | XMS_ITS | Encounter Summary ---
Author Organization [facility] Address [address] [place] [address] Care Team Providers Care Diesel Engine Pipe Fitter Name Role Phone Edgar Fournier MD Primary Care Provider [phone] Enrique Griffith MD Unavailable [phone] Encounter Details Date Type Department Care Team (Late st Contact Info) Description 08/21/2017 [facility] OTTR Encounter HISTORICAL OTTR [address] [place] [address] Jack Ansari Social History Tobacco Use Types Packs/Day Years Used Date Smoking Tobacco: Never Assessed Sex and Gender Information Value Date Recorded Sex Assigned at Not on file Legal Sex Male 6:10 PM EDT Gender Identity Not on file Sexual Orientation Straight 03/02/2021 10 :04 AM EDT documented as of this encounter Miscellaneous Notes * Progress Notes - Jack Ansari - 08/21/2017 4:04 PM EST 15 Aug 2017: 42-year-old white male with SAL cirrhosis, decompensated, listed for transplant with MELD score today of 25. Decompensation over the last two weeks with two ER visits and one hospitalization with acute exacerbation of hepatic encephalopathy. Overall worsening liver function with total bilirubin up to 8.1 in INR 1.8. Possible dental abscess could be an explanation. No suggestion of SBP in hospital, on exam or by history. Also patient mentions that he had reduced his lactulose part two onset of symptoms. Hepatic encephalopathy seems to been more prevalent since placement of TIPS inOctober 2016. Ask him to get back on lactulose and adjust to maintain 2 to 3 soft bowel movements perday. His blood pressure was poorly controlled today and ask him to restart both of his blood pressure medicine starting today and then see his primary care provider tomorrow for a blood pressure check. Creatinine up to 1.58 today. Bridgett please arrange for the patient to get an ultrasound of the kidneys and a urinalysis. If this can be done on return to clinic great, otherwise just get this as soon as possible. Patient does not live far away. I asked him to see his dentist tomorrow. Return to clinic in two weeks for follow-up. Sooner if needed. No evidence of infection from his hospitalization. His white Cell count is normal, I can't see any gross abnormalities of the teeth and gums and by the time of his visit today he says that his tooth pain has resolved, therefore it's probably okay to keep him actively listed right now pending further information from his dentist. RTC 2 weeks for close follow up. documented in this encounter Plan of Treatment Not on file documented as of this encounter Procedures Procedure Name Priority Date/Time Associated Diagnosis Comments OTTR LAB RESULTS (MANUAL) Routine 08/21/2017 2:49 PM EST documented in this encounter Results * OTTR LAB RESULTS (MANUAL) (08/21/2017 2:49 PM EST) External WBC 4.3 k/uL EXTERNAL LAB External Hemoglobin (Hgb) 11.3 gm/dL EXTERNAL LAB External Hematocrit (Hct) 33.0 % EXTERNAL LAB External Platelet Count (Plt) 146 k/uL EXTERNAL LAB External Prothrombin Time (PT) 20.4 seconds EXTERNAL LAB External INR - Internormal Ratio 1.7 EXTERNAL LAB External Glucose 71 mg/dL EXTERNAL LAB External BUN 18 mg/dL EXTERNAL LAB External Creatinine Blood 1.41 mg/dL EXTERNAL LAB External Sodium (Na) 145 mmol/L EXTERNAL LAB External Potassium (K) 4.0 mmol/L EXTERNAL LAB External Chloride (Cl) 109 mmol/L EXTERNAL LAB External Carbon Dioxide (CO2) 26 mmol/L EXTERNAL LAB External Calcium (Ca) 10.3 mg/dL EXTERNAL LAB External AST (SGOT) 57 units/L EXTERNAL LAB External ALT (SGPT) 19 units/L EXTERNAL LAB External Alkaline Phosphatase 126 U/L EXTERNAL LAB External Bilirubin Total 8.8 mg/dL EXTERNAL LAB External Bilirubin Direct 2.42 mg/dL EXTERNAL LAB External Total Protein 6.8 g/dL EXTERNAL LAB External Albumin 3.7 g/dL EXTERNAL LAB External Cholesterol 86 mg/dL EXTERNAL LAB External Triglyceride 96 mg/dL EXTERNAL LAB External HDL Cholesterol 26 mg/dL EXTERNAL LAB External LDL Cholesterol 41 mg/dL EXTERNAL LAB External Estimated GFR 58.31 EXTERNAL LAB 08/21/2017 2:49 PM EST Narrative EXTERNAL LAB - 08/23/2017 10:33 AM EST [facility] us Historical Provider LAB BLOOD ORDERABLES Yoselin l Result EXTERNAL LAB documented in this encounter Visit Diagnoses Not on filedocumented in this encounter Additional Health Concerns Infection Onset Date Last Indicated Resolved Time COVID-19 Rule-Out 11/08/2021 11/08/2021 11/08/2021 8:06 AM EDT documented as of this encounter Care Teams Diesel Engine Pipe Fitter Relationship Specialty Start Date End Date Edgar Fournier MD [address] [place] [address] PCP - General 12/25/20 Enrique Griffith MD [address] [place] [phone] Referring Physician Nephrology 01/08/21 documented as of this encounter
--- OUTSIDE RECORDS SUMMARY | 2024-07-12 13:07 | XMS_ITS | Encounter Summary ---
Author Organization [facility] Address [address] [place] [address] Care Team Providers Care Fast Food Server Name Role Phone Edgar Fournier MD Primary Care Provider [phone] Enrique Griffith MD Unavailable [phone] Reason for Referral * Consultation (Routine) - Closed Specialty Diagnoses / Procedures Referred By Declan hines Referred To Contact Transplant Diagnoses ESRD (end stage renal disease) ([facility]) Petrona Sheppard MD [address] [address] Phone: tel: fax: [facility] [address] [address] Phone: tel: fax: Referral ID Status Reason Start Date Expiration Date V isits Requested Visits Authorized [id number] Closed Specialty Services Required 01/08/2021 07/07/2021 1 1 * Genetic Testing (Routine) - Closed Specialty Diagnoses / Procedures Referred By Declan hines Referred To Contact Lab Diagnoses ESRD (end stage renal disease) ([facility]) Procedures HLA Antibody Screen (PRA) Petrona Sheppard MD [address] [address] Phone: tel: fax: Referral ID Status Reason Start Date Expiration Date Visits Re quested Visits Authorized [id number] Closed 01/08/2021 07/07/2021 1 1 * Transplant (Routine) - Authorized Specialty Diagnoses / Procedures Referred By Contac t Referred To Contact Transplant Diagnoses ESRD (end stage renal disease) ([facility]) Petrona Sheppard MD [address] [address] Phone: tel: fax: [facility] [place] [address] [address] [address] Phone: tel: fax: Referral ID Status Reason Start Date Expiration Date Visits Requested Visits Authorized [id number] Authorized Specialty Services Required 01/08/2021 10/02/2024 999 999 Reason for Visit * Reason Comments Referral - Kidney Txp Encounter Details Date Type Department Care Team (Late st Contact Info) Description 01/08/[address] [facility] [address] [place] [phone] Physician Reddy MD [address] [place] [address] Referral - Kidney Txp Social History Tobacco Use Types Packs/Day Years [...] * Telephone Encounter - Janeth Navarrete - 01/08/2021 2:09 PM EDT Received kidney transplant referral. Called and spoke with patient. Verified address, e-mail, and dialysis. PCP is Edgar Fournier. Offered sooner openings, but patient says he has vacation planned during first available opening on 01/28/21. Patient scheduled for initial clinic evaluation at [facility] on 02/04/2021 at 1020, 0920 arrical. Patient advised he may only bring one guest and was given all appointment details. He verbalized understanding of all. Mailed new patient paperwork to patient and copied referring provider and dialysis center. documented in this encounter Plan of Treatment Scheduled Referrals Name Type Priority Associated Diagnoses Order Schedule Ambulatory referral to Solid Organ Transplant Team Outpatient Referral Routine ESRD (end stage renal disease) ([facility]) Ordered: 01/08/2021 Initial Clinic Evaluation - Transplant Surgery Outpatient Referral Routine ESRD (end stage renal disease) ([facility]) 1 Occurrences starting 01/08/2021 until 07/11/2021 documented as of this encounter Results * HLA Antibody Screen (PRA) (01/28/2021 9:53 AM EDT) Blood Venous blood specimen / Unknown Venipuncture / Unknown 01/28/2021 9:53 AM EDT 01/28/2021 10:50 AM EDT us Petrona Sheppard MD LAB BLOOD ORDERABLES Final Resul t [facility] [address] [place] [address], * Nicotine Cotinine Metabolite (01/28/2021 9:53 AM EDT) Nicotine, S/P, Quant <2 ng/mL 01/31/2021 9:15 PM EDT [facility] ([facility]) Cotinine, S/P, Quant <2 ng/mL 01/31/2021 9:15 PM EDT [facility] ([facility]) [id number], S/P,QUANT <2 ng/mL 01/31/2021 9:15 PM EDT [facility] ([facility]) Blood Venous blood specimen / Unknown Venipuncture / Unknown 01/28/2021 9:53 AM EDT 01/28/2021 10:25 AM EDT Narrative [facility] - 01/31/2021 9:15 PM EDT Consistent with [...] developed and its performance characteristics determined by [facility]. It has not been cleared or approved by the [place] Food and Drug Administration. This test was performed in a CLIA certified laboratory and is intended for clinical purposes. Performed By: [facility] [address] [place] [address] Dishing Machine Operator: Gabbi Rausch MD us Petrona Sheppard MD LAB BLOOD ORDERABLES Final Resul t [facility]) [address] [place] [address] * (ABNORMAL) Hemoglobin A1c (01/28/2021 9:53 AM EDT) Hemoglobin A1c 6.0(H) <5.7 % 01/28/2021 10:49 AM EDT [facility] Blood Venous blood [...] Adults <6.0% Children and Adolescents <7.5% Source: ??[place] Diabetes Association. Standards of medical care in diabetes,2017. Diabetes Care.2017:40 (suppl 1):S1-S135. HbA1c assay performed by an ion-exchange chromatography method that is certified traceable to the DCCT. us Petrona Sheppard MD LAB BLOOD ORDERABLES Final Resul t Performing Organization Address City/[facility] Co de Phone Number HEALTHCARE LAB [address] [place] [address] * ABO/Rh (01/28/2021 9:53 AM EDT) ABO/Rh O Negative 01/28/2021 9:45 AM EDT BLOOD BANK Blood Venous blood specimen / Unknown Venipuncture / Unknown 01/28/2021 9:53 AM EDT 01/28/2021 10:39 AM EDT us Petrona Sheppard MD LAB BLOOD BANK TEST ORDERABLES F inal Result Performing Organization Address City/[facility] de Phone Number BLOOD BANK [address] [place] [address] * Serum Drug Screen (01/28/2021 9:52 AM [...] <20 <20 ng/mL 02/17/2021 10:30 AM EDT HEALTHCARE LAB Comment:These results have b een appended to a previously final verified report. 7 Amino Clonazepam <5 <5 ng/mL 2020 10:30 AM EDT [facility] Comment:These results have b een appended to a previously final verified report. Norfentanyl <1 <1 ng/mL 02/17/2021 10:30 AM EDT HEALTHCARE LAB Comment:These results have b een appended to a previously final verified report. Blood Venous blood specimen / Unknown Venipuncture / Unknown 01/28/2021 9:52 AM EDT 01/28/2021 10:25 AM EDT Narrative HEALTHCARE LAB - 02/17/2021 10:30 AM EDT Test performed by LC-MS/MS at the [facility]. This test was developed and its performance characteristics determined by [facility]. It has not been cleared or approved by the FDA. The laboratory is regulated under CLIA as qualified to perform high-complexity testing. This test is used for clinical purposes. us Petrona Sheppard MD LAB BLOOD ORDERABLES Edited Resu lt - Final [facility] [address] [place] [address] documented in this encounter Visit Diagnoses Diagnosis ESRD (end stage renal disease) (CMS/HCC)- Primary End stage renal disease End stage renal disease (CMS/HCC) End stage renal disease documented in this encounter Care Teams Fast Food Server Relationship Specialty Start Date End Date Edgar Fournier MD [address] [place] [address] PCP - General 12/25/20 Enrique Griffith MD [address] [place] [address] Referring Physician Nephrology 01/08/21 documented as of this encounter
--- OUTSIDE RECORDS SUMMARY | 2024-07-12 13:07 | XMS_ITS | Encounter Summary ---
Author Organization [facility] Address [address] [place] [address] Care Team Providers Care Help Desk Team Leader Name Role Phone Edgar Fournier MD Primary Care Provider [phone] Enrique Griffith MD Unavailable [phone] Encounter Details Date Type Department Care Team (Late st Contact Info) Description 08/29/2017 [facility] OTTR Encounter HISTORICAL OTTR [address] [place] [address] Roxi Vazquez [facility] [address] [place] [address] Social History Tobacco Use Types Packs/Day Years Used Date Smoking Tobacco: Never Assessed Sex and Gender Information Value Date Recorded Sex Assigned at Not on file Legal Sex Male 6:10 PM EDT Gender Identity Not on file Sexual Orientation Straight 03/02/2021 10 :04 AM EDT documented as of this encounter Miscellaneous Notes * Progress Notes - George November - 08/29/2017 9:35 AM EST Spoke to patient moving 08/30 appt to 09/12 arriving at 8:00am. He verbalized understanding. documented in this encounter Plan of Treatment Not on file documented as of this encounter Visit Diagnoses Not on filedocumented in this encounter Additional Health Concerns Infection Onset Date Last Indicated Resolved Time COVID-19 Rule-Out 11/08/2021 11/08/2021 11/08/2021 8:06 AM EDT documented as of this encounter Care Teams Help Desk Team Leader Relationship Specialty Start Date End Date Edgar Fournier MD [address] [place] [address] PCP - General 12/25/20 Enrique Griffith MD [address] [place] [address] Referring Physician Nephrology 01/08/21 documented as of this encounter
--- OUTSIDE RECORDS SUMMARY | 2024-07-12 13:08 | XMS_ITS | Encounter Summary ---
Author Organization [facility] Address [address] [id number] Care Team Providers Care Pantograph Machine Operator Name Role Phone Edgar Fournier MD Primary Care Provider [phone] Enrique Griffith MD Unavailable [phone] Encounter Details Date Type Department Care Team (Late st Contact Info) Description 12/15/2016 [facility] OT[facility] Encounter HISTORICAL OTTR [address] [place] [address] Bridgett Márquez, RN [facility] [id number] [address] [id number] Social History Tobacco Use Types Packs/Day Years Used Date Smoking Tobacco: Never Assessed Sex and Gender Information Value Date Recorded Sex Assigned at Not on file Legal Sex Male 6:10 PM EDT Gender Identity Not on file Sexual Orientation Straight 03/02/2021 10 :04 AM EDT documented as of this encounter Miscellaneous Notes * Progress Notes - Bridgett Márquez - 12/15/2016 9:37 AM EDT Phd patient-s/w Aiden, he will get labs today or tomorrow. documented in this encounter Plan of Treatment Not on file documented as of this encounter Procedures Procedure Name Priority Date/Time Associated Diagnosis Comments OTTR LAB RESULTS (MANUAL) Routine 12/15/2016 12:46 PM EDT documented in this encounter Results * OTTR LAB RESULTS (MANUAL) (12/15/2016 12:46 PM EDT) External WBC 4.0 k/uL EXTERNAL LAB External Hemoglobin (Hgb) 10.8 gm/dL EXTERNAL LAB External Hematocrit (Hct) 30.6 % EXTERNAL LAB External Platelet Count (Plt) 162 k/uL EXTERNAL LAB External Glucose 283 mg/dL EXTERNAL LAB External BUN 10 mg/dL EXTERNAL LAB External Creatinine Blood 1.4 mg/dL EXTERNAL LAB External Sodium (Na) 139 mmol/L EXTERNAL LAB External Potassium (K) 4.1 mmol/L EXTERNAL LAB External Chloride (Cl) 104 mmol/L EXTERNAL LAB External Carbon Dioxide (CO2) 26 mmol/L EXTERNAL LAB External Calcium (Ca) 8.9 mg/dL EXTERNAL LAB External AST (SGOT) 49 units/L EXTERNAL LAB External ALT (SGPT) 26 units/L EXTERNAL LAB External Alkaline Phosphatase 165 U/L EXTERNAL LAB External Bilirubin Total 4.4 mg/dL EXTERNAL LAB External Total Protein 6.6 g/dL EXTERNAL LAB External Albumin 2.5 g/dL EXTERNAL LAB External Estimated GFR 58.79 EXTERNAL LAB 12/15/2016 12:4 6 PM EDT Narrative EXTERNAL LAB - 12/16/2016 12:48 PM EDT [facility] us Historical Provider LAB BLOOD ORDERABLES Yoselin l Result EXTERNAL LAB documented in this encounter Visit Diagnoses Not on filedocumented in this encounter Additional Health Concerns Infection Onset Date Last Indicated Resolved Time COVID-19 Rule-Out 11/08/2021 11/08/2021 11/08/2021 8:06 AM EDT documented as of this encounter Care Teams Pantograph Machine Operator Relationship Specialty Start Date End Date Edgar Fournier MD [address] [place] [address] PCP - General 12/25/20 Enrique Griffith MD [address] [place] [address] Referring Physician Nephrology 01/08/21 documented as of this encounter
--- OUTSIDE RECORDS SUMMARY | 2024-07-12 13:08 | XMS_ITS | Encounter Summary ---
Author Organization [facility] Address [address] [place] [address] Care Team Providers Care Experimental Machining Lab Manager Name Role Phone Edgar Fournier MD Primary Care Provider [phone] Enrique Griffith MD Unavailable [phone] Encounter Details Date Type Department Care Team (Late st Contact Info) Description 01/26/2017 [facility] OTTR Encounter HISTORICAL OTTR [address] [place] [address] Christa Knowles [address] [phone] Social History Tobacco Use Types Packs/Day Years Used Date Smoking Tobacco: Never Assessed Sex and Gender Information Value Date Recorded Sex Assigned at Not on file Legal Sex Male 6:10 PM EDT Gender Identity Not on file Sexual Orientation Straight 03/02/2021 10 :04 AM EDT documented as of this encounter Miscellaneous Notes * Progress Notes - Christa Knowles - 01/26/2017 1:41 PM EDT DOS 02/28/17 OP Cpt Colonoscopy 26392, Video Capsule EGD 14916, pre-cert request faxed to Michelle graves/ clinical and saved to all docs. Nurse updated. documented in this encounter Plan of Treatment Not on file documented as of this encounter Visit Diagnoses Not on filedocumented in this encounter Additional Health Concerns Infection Onset Date Last Indicated Resolved Time COVID-19 Rule-Out 11/08/2021 11/08/2021 11/08/2021 8:06 AM EDT documented as of this encounter Care Teams Experimental Machining Lab Manager Relationship Specialty Start Date End Date Edgar Fournier MD [address] [place] [address] PCP - General 12/25/20 Enrique Griffith MD [address] [place] [address] Referring Physician Nephrology 01/08/21 documented as of this encounter
--- OUTSIDE RECORDS SUMMARY | 2024-07-12 13:08 | XMS_ITS | Encounter Summary ---
Author Organization [facility] Address [address] [place] [address] Care Team Providers Care Child Care Center Assistant Director Name Role Phone Edgar Fournier MD Primary Care Provider [phone] Enrique Griffith MD Unavailable [phone] Encounter Details Date Type Department Care Team (Late st Contact Info) Description 12/20/2016 [facility] OTTR Encounter HISTORICAL OTTR [address] [place] [address] Shara Huff, PLUSH CUTTER, DNP [address] [facility] [address] [place] [address] Social History Tobacco Use Types Packs/Day Years Used Date Smoking Tobacco: Never Assessed Sex and Gender Information Value Date Recorded Sex Assigned at Not on file Legal Sex Male 6:10 PM EDT Gender Identity Not on file Sexual Orientation Straight 03/02/2021 10 :04 AM EDT documented as of this encounter Miscellaneous Notes * Progress Notes - Shara Huff - 12/20/2016 4:12 PM EDT consult f/u 12/20: US abdomen chung/art with appropriate flow directionality. No EGD yet, no further melena with stable HandH. Hepatology following. documented in this encounter Plan of Treatment Not on file documented as of this encounter Procedures Procedure Name Priority Date/Time Associated Diagnosis Comments OTTR LAB RESULTS (MANUAL) Routine 12/20/2016 2:39 AM EDT documented in this encounter Results * OTTR LAB RESULTS (MANUAL) (12/20/2016 2:39 AM EDT) External Estimated GFR 65.19 EXTERNAL LAB 12/20/2016 2:39 AM EDT Narrative EXTERNAL LAB - 12/20/2016 3:35 AM EDT Automated LAB Interface us Historical Provider LAB BLOOD ORDERABLES Yoselin l Result EXTERNAL LAB documented in this encounter Visit Diagnoses Not on filedocumented in this encounter Additional Health Concerns Infection Onset Date Last Indicated Resolved Time COVID-19 Rule-Out 11/08/2021 11/08/2021 11/08/2021 8:06 AM EDT documented as of this encounter Care Teams Child Care Center Assistant Director Relationship Specialty Start Date End Date Edgar Fournier MD [address] [place] [address] PCP - General 12/25/20 Enrique Griffith MD [address] [place] [phone] Referring Physician Nephrology 01/08/21 documented as of this encounter
--- OUTSIDE RECORDS SUMMARY | 2024-07-12 13:08 | XMS_ITS | Encounter Summary ---
Author Organization [facility] Address [address] [place] [address] Care Team Providers Care Presto Log Operator Name Role Phone Edgar Fournier MD Primary Care Provider Enrique Griffith MD Unavailable [phone] Encounter Details Date Type Department Care Team (Late st Contact Info) Description 04/04/2017 [facility] OTTR Encounter HISTORICAL OTTR [address] [place] [address] Kathya Hassan, NAVNEET [address] [facility] [address] [place] [address] Social History Tobacco Use Types Packs/Day Years Used Date Smoking Tobacco: Never Assessed Sex and Gender Information Value Date Recorded Sex Assigned at Not on file Legal Sex Male 6:10 PM EDT Gender Identity Not on file Sexual Orientation Straight 03/02/2021 10 :04 AM EDT documented as of this encounter Miscellaneous Notes * Progress Notes - Kathya Hassan - 04/04/2017 4:40 PM EDT This is a 41 yo WM with SAL cirrhosis, listed for transplant. He is also listed in [place]. MELD 18 (INR 1.4, Cr 1.21, Na 143, Bili 4.7) s/p TIPS 1. SAL Cirrhosis # Ascites - TIPS placed on October 18, 2016 - ascites now better controlled. He is on furosemide 40 mgdaily PRN. He does not take this very often. # HE - Denies overt confusion but has trouble with higher level functions, has mood changes, irritability. Worsens with constipation. He is on lactulose and xifaxan. Has 5-6 BMs per day (some large, some small); was recently hospitalized with HE from March 06-February 2017 - noted to have lactic acidosis at the time as well; he is s/p TIPS # EV - s/p TIPS. He is on carvedilol 25 mg BID for HTN # HCC Surveillance - US of abdomen - 5-26-17 - 1. No acute findings in the abdomen or pelvis to explain patient's symptoms. Cirrhosis with findings of portal hypertension. Cholelithiasis; AFP 3.1 December2016 2. Diabetes Mellitus, type 2 - is managed by PCP - a1c 9.4 last year - treated with humalog - metformin stopped after recent lactic acidosis. 3. Vitamine D Deficiency - on vitamin D ergocalciferol 50,000 weekly. vit d level 04 May 2016 4. HTN - BP 152/90 with a HR of 72. (Has not taken carvedilol today due to heart testing) Health Maintenance - Immune to HAV/HBV; Colonoscopy October 2016 - Perianal examination was normal. The entire examined ileum contained red blood. Clotted and red blood was found in the entire colon. But no lesions or diverticula were seen. Plan --schedule US for TIPS surveillance with next appointment --start zinc sulfate 220 mg BID --check vitamin D level on follow up --annual heart testing today. Follow results Transplant Status: Listed Follow up in 6-8 weeks documented in this encounter Plan of Treatment Not on file documented as of this encounter Procedures Procedure Name Priority Date/Time Associated Diagnosis Comments OTTR LAB RESULTS (MANUAL) Routine 04/04/2017 7:19 AM EDT documented in this encounter Results * OTTR LAB RESULTS (MANUAL) (04/04/2017 7:19 AM EDT) External Estimated GFR 69.56 EXTERNAL LAB 04/04/2017 7:19 AM EDT Narrative EXTERNAL LAB - 04/04/2017 8:25 AM EDT Automated LAB Interface us Historical Provider LAB BLOOD ORDERABLES Yoselin l Result EXTERNAL LAB documented in this encounter Visit Diagnoses Not on filedocumented in this encounter Additional Health Concerns Infection Onset Date Last Indicated Resolved Time COVID-19 Rule-Out 11/08/2021 11/08/2021 11/08/2021 8:06 AM EDT documented as of this encounter Care Teams Presto Log Operator Relationship Specialty Start Date End Date Edgar Fournier MD [address] [place] [address] PCP - General 12/25/20 Enrique Griffith MD [address] [place] [phone] Referring Physician Nephrology 01/08/21 documented as of this encounter
--- OUTSIDE RECORDS SUMMARY | 2024-07-12 13:08 | XMS_ITS | Encounter Summary ---
Author Organization [facility] Address [address] [id number] Care Team Providers Care Director Speech Name Role Phone Edgar Fournier MD Primary Care Provider [phone] Enrique Griffith MD Unavailable [phone] Encounter Details Date Type Department Care Team (Late st Contact Info) Description 12/16/2016 [facility] OTTR Encounter HISTORICAL OTTR [address] [place] [address] Bridgett Márquez, RN [facility] [id number] [address] [phone] Social History Tobacco Use Types Packs/Day Years Used Date Smoking Tobacco: Never Assessed Sex and Gender Information Value Date Recorded Sex Assigned at Not on file Legal Sex Male 6:10 PM EDT Gender Identity Not on file Sexual Orientation Straight 03/02/2021 10 :04 AM EDT documented as of this encounter Miscellaneous Notes * Progress Notes - Bridgett Márquez - 12/16/2016 2:46 PM EDT Patient scheduled for infusion 8am at [facility]. documented in this encounter Plan of Treatment Not on file documented as of this encounter Visit Diagnoses Not on filedocumented in this encounter Additional Health Concerns Infection Onset Date Last Indicated Resolved Time COVID-19 Rule-Out 11/08/2021 11/08/2021 11/08/2021 8:06 AM EDT documented as of this encounter Care Teams Director Speech Relationship Specialty Start Date End Date Edgar Fournier MD [address] [place] [address] PCP - General 12/25/20 Enrique Griffith MD [address] [place] [address] Referring Physician Nephrology 01/08/21 documented as of this encounter
--- OUTSIDE RECORDS SUMMARY | 2024-07-12 13:08 | XMS_ITS | Encounter Summary ---
Author Organization [facility] Address [address] [id number] Care Team Providers Care Employment Office Clerk Name Role Phone Edgar Fournier MD Primary Care Provider [phone] Enrique Griffith MD Unavailable [phone] Encounter Details Date Type Department Care Team (Late st Contact Info) Description 01/17/2017 [facility] OTTR Encounter HISTORICAL OTTR [address] [place] [address] Bridgett Márquez, RN [facility] [id number] [address] [phone] Social History Tobacco Use Types Packs/Day Years Used Date Smoking Tobacco: Never Assessed Sex and Gender Information Value Date Recorded Sex Assigned at Not on file Legal Sex Male 6:10 PM EDT Gender Identity Not on file Sexual Orientation Straight 03/02/2021 10 :04 AM EDT documented as of this encounter Miscellaneous Notes * Progress Notes - Bridgett Márquez - 01/17/2017 9:10 AM EDT Rec'd ph call from patient. he is working on dual listing at , and would like testing results faxed to [facility] at [phone]. Will do same. documented in this encounter Plan of Treatment Not on file documented as of this encounter Procedures Procedure Name Priority Date/Time Associated Diagnosis Comments OTTR LAB RESULTS (MANUAL) Routine 01/17/2017 8:08 AM EDT documented in this encounter Results * OTTR LAB RESULTS (MANUAL) (01/17/2017 8:08 AM EDT) External Estimated GFR 67.63 EXTERNAL LAB 01/17/2017 8:08 AM EDT Narrative EXTERNAL LAB - 01/17/2017 9:19 AM EDT Automated LAB Interface us Historical Provider LAB BLOOD ORDERABLES Yoselin robles Result EXTERNAL LAB documented in this encounter Visit Diagnoses Not on filedocumented in this encounter Additional Health Concerns Infection Onset Date Last Indicated Resolved Time COVID-19 Rule-Out 11/08/2021 11/08/2021 11/08/2021 8:06 AM EDT documented as of this encounter Care Teams Employment Office Clerk Relationship Specialty Start Date End Date Edgar Fournier MD [address] [place] [address] PCP - General 12/25/20 Enrique Griffith MD [address] [place] [address] Referring Physician Nephrology 01/08/21 documented as of this encounter
--- OUTSIDE RECORDS SUMMARY | 2024-07-12 13:08 | XMS_ITS | Encounter Summary ---
Author Organization [facility] Address [address] [id number] Care Team Providers Care Key Filer Name Role Phone Edgar Fournier MD Primary Care Provider [phone] Enrique Griffith MD Unavailable [phone] Encounter Details Date Type Department Care Team (Late st Contact Info) Description 02/08/2017 [facility] OTTR Encounter HISTORICAL OTTR [address] [place] [address] Bridgett Márquez, RN [facility] [id number] [address] [phone] Social History Tobacco Use Types Packs/Day Years Used Date Smoking Tobacco: Never Assessed Sex and Gender Information Value Date Recorded Sex Assigned at Not on file Legal Sex Male 6:10 PM EDT Gender Identity Not on file Sexual Orientation Straight 03/02/2021 10 :04 AM EDT documented as of this encounter Miscellaneous Notes * Progress Notes - Bridgett Márquez - 02/08/2017 2:07 PM EDT Need updated labs for patient. Phd patient- s/w Aiden, he adv he was in the hospital with pancreatitis overnight last night. He adv labs were drawn there last night. He adv he is feeling a little better. He adv his voice is still weak. Will obtain records from [facility]. He adv he was declined at for Txp, due to insurance. documented in this encounter Plan of Treatment Not on file documented as of this encounter Visit Diagnoses Not on filedocumented in this encounter Additional Health Concerns Infection Onset Date Last Indicated Resolved Time COVID-19 Rule-Out 11/08/2021 11/08/2021 11/08/2021 8:06 AM EDT documented as of this encounter Care Teams Key Filer Relationship Specialty Start Date End Date Edgar Fournier MD [address] [place] [address] PCP - General 12/25/20 Enrique Griffith MD [address] [place] [address] Referring Physician Nephrology 01/08/21 documented as of this encounter
--- OUTSIDE RECORDS SUMMARY | 2024-07-12 13:08 | XMS_ITS | Encounter Summary ---
Author Organization [facility] Address [address] [place] [address] Care Team Providers Care Forest Science Professor Name Role Phone Edgar Fournier MD Primary Care Provider [phone] Enrique Griffith MD Unavailable [phone] Encounter Details Date Type Department Care Team (Late st Contact Info) Description 03/28/2017 [facility] OTTR Encounter HISTORICAL OTTR [address] [place] [address] Jack Ansari Social History Tobacco Use Types Packs/Day Years Used Date Smoking Tobacco: Never Assessed Sex and Gender Information Value Date Recorded Sex Assigned at Not on file Legal Sex Male 6:10 PM EDT Gender Identity Not on file Sexual Orientation Straight 03/02/2021 10 :04 AM EDT documented as of this encounter Miscellaneous Notes * Progress Notes - Jack Ansari - 03/28/2017 8:57 AM EDT Labs reviewed. Bridgett please have him decrease Lasix to 20mg once daily. Let me know if you need meto send a new Rx or he can just cut in half. He should be coming back soon for follow up. documented in this encounter Plan of Treatment Not on file documented as of this encounter Visit Diagnoses Not on filedocumented in this encounter Additional Health Concerns Infection Onset Date Last Indicated Resolved Time COVID-19 Rule-Out 11/08/2021 11/08/2021 11/08/2021 8:06 AM EDT documented as of this encounter Care Teams Forest Science Professor Relationship Specialty Start Date End Date Edgar Fournier MD [address] [place] [address] PCP - General 12/25/20 Enrique Griffith MD [address] [place] [address] Referring Physician Nephrology 01/08/21 documented as of this encounter
--- OUTSIDE RECORDS SUMMARY | 2024-07-12 13:08 | XMS_ITS | Encounter Summary ---
Author Organization [facility] Address [address] [place] [address] Care Team Providers Care Senior Microstrategy Developer Name Role Phone Edgar Fournier MD Primary Care Provider [phone] Enrique Griffith MD Unavailable [phone] Encounter Details Date Type Department Care Team (Late st Contact Info) Description 04/19/2017 [facility] OTTR Encounter HISTORICAL OTTR [address] [place] [address] George November Harish [facility] [address] [place] [address] Social History Tobacco Use Types Packs/Day Years Used Date Smoking Tobacco: Never Assessed Sex and Gender Information Value Date Recorded Sex Assigned at Not on file Legal Sex Male 6:10 PM EDT Gender Identity Not on file Sexual Orientation Straight 03/02/2021 10 :04 AM EDT documented as of this encounter Miscellaneous Notes * Progress Notes - George November - 04/19/2017 7:35 AM EDT Forms submitted to IR for TIPS revision. documented in this encounter Plan of Treatment Not on file documented as of this encounter Visit Diagnoses Not on filedocumented in this encounter Additional Health Concerns Infection Onset Date Last Indicated Resolved Time COVID-19 Rule-Out 11/08/2021 11/08/2021 11/08/2021 8:06 AM EDT documented as of this encounter Care Teams Senior Microstrategy Developer Relationship Specialty Start Date End Date Edgar Fournier MD [address] [place] [address] PCP - General 12/25/20 Enrique Griffith MD [address] [place] [address] Referring Physician Nephrology 01/08/21 documented as of this encounter
--- OUTSIDE RECORDS SUMMARY | 2024-07-12 13:08 | XMS_ITS | Encounter Summary ---
Author Organization [facility] Address [address] [place] [address] Care Team Providers Care Superintendent Colliery Name Role Phone Edgar Fournier MD Primary Care Provider [phone] Enrique Griffith MD Unavailable [phone] Encounter Details Date Type Department Care Team (Late st Contact Info) Description 05/08/2017 [facility] OTTR Encounter HISTORICAL OTTR [address] [place] [address] Carla Hammonds [facility] [address] [place] [address] Social History Tobacco Use Types Packs/Day Years Used Date Smoking Tobacco: Never Assessed Sex and Gender Information Value Date Recorded Sex Assigned at Not on file Legal Sex Male 6:10 PM EDT Gender Identity Not on file Sexual Orientation Straight 03/02/2021 10 :04 AM EDT documented as of this encounter Miscellaneous Notes * Progress Notes - Carla Hammonds - 05/08/2017 11:34 AM EDT Precert request sent to SR documented in this encounter Plan of Treatment Not on file documented as of this encounter Visit Diagnoses Not on filedocumented in this encounter Additional Health Concerns Infection Onset Date Last Indicated Resolved Time COVID-19 Rule-Out 11/08/2021 11/08/2021 11/08/2021 8:06 AM EDT documented as of this encounter Care Teams Superintendent Colliery Relationship Specialty Start Date End Date Edgar Fournier MD [address] [place] [address] PCP - General 12/25/20 Enrique Griffith MD [address] [place] [phone] Referring Physician Nephrology 01/08/21 documented as of this encounter
--- OUTSIDE RECORDS SUMMARY | 2024-07-12 13:08 | XMS_ITS | Encounter Summary ---
Author Organization [facility] Address [address] [phone] Care Team Providers Care Textile Slitting Machine Operator Name Role Phone Edgar Fournier MD Primary Care Provider [phone] Enrique Griffith MD Unavailable [phone] Encounter Details Date Type Department Care Team (Late st Contact Info) Description 03/07/2017 [facility] OTTR Encounter HISTORICAL OTTR [address] [place] [address] Bridgett Márquez, RN [facility] [id number] [address] [phone] Social History Tobacco Use Types Packs/Day Years Used Date Smoking Tobacco: Never Assessed Sex and Gender Information Value Date Recorded Sex Assigned at Not on file Legal Sex Male 6:10 PM EDT Gender Identity Not on file Sexual Orientation Straight 03/02/2021 10 :04 AM EDT documented as of this encounter Miscellaneous Notes * Progress Notes - Bridgett Márquez - 03/07/2017 8:01 AM EDT [facility]. MELD score 19 today, listed active. documented in this encounter Plan of Treatment Not on file documented as of this encounter Procedures Procedure Name Priority Date/Time Associated Diagnosis Comments OTTR LAB RESULTS (MANUAL) Routine 03/07/2017 4:12 AM EDT OTTR LAB RESULTS (MANUAL) Routine 03/06/2017 8:02 PM EDT documented in this encounter Results * OTTR LAB RESULTS (MANUAL) (03/07/2017 4:12 AM EDT) External Estimated GFR 66.39 EXTERNAL LAB 03/07/2017 4:12 AM EDT Narrative EXTERNAL LAB - 03/07/2017 5:11 AM EDT Automated LAB Interface Historical Provider MD LAB BLOOD ORDERABLES Yoselin l Result Performing Organization Address [facility] de Phone Number EXTERNAL LAB * OTTR LAB RESULTS (MANUAL) (03/06/2017 8:02 PM EDT) External Estimated GFR 68.91 EXTERNAL LAB 03/06/2017 8:02 PM EDT Narrative EXTERNAL LAB - 03/06/2017 8:41 PM EDT Automated LAB Interface Historical Provider MD LAB BLOOD ORDERABLES Yoselin l Result Performing Organization Address [facility] de Phone Number EXTERNAL LAB documented in this encounter Visit Diagnoses Not on filedocumented in this encounter Additional Health Concerns Infection Onset Date Last Indicated Resolved Time COVID-19 Rule-Out 11/08/2021 11/08/2021 11/08/2021 8:06 AM EDT documented as of this encounter Care Teams Textile Slitting Machine Operator Relationship Specialty Start Date End Date Edgar Fournier MD [address] [place] [address] PCP - General 12/25/20 Enrique Griffith MD [address] [place] [address] Referring Physician Nephrology 01/08/21 documented as of this encounter
--- OUTSIDE RECORDS SUMMARY | 2024-07-12 13:08 | XMS_ITS | Encounter Summary ---
Author Organization [facility] Address [address] [id number] Care Team Providers Care Director Of Brand Marketing Name Role Phone Edgar Fournier MD Primary Care Provider [phone] Enrique Griffith MD Unavailable [phone] Encounter Details Date Type Department Care Team (Late st Contact Info) Description 12/16/2016 [facility] Encounter HISTORICAL OTTR [address] [place] [address] Bridgett Márquez, RN [facility] [id number] [address] [phone] Social History Tobacco Use Types Packs/Day Years Used Date Smoking Tobacco: Never Assessed Sex and Gender Information Value Date Recorded Sex Assigned at Not on file Legal Sex Male 6:10 PM EDT Gender Identity Not on file Sexual Orientation Straight 03/02/2021 10 :04 AM EDT documented as of this encounter Miscellaneous Notes * Progress Notes - Bridgett Márquez - 12/16/2016 12:49 PM EDT Rec'd updated labs. Patient Cr continues to increase, now 1.4. Will have AYG review. documented in this encounter Plan of Treatment Not on file documented as of this encounter Visit Diagnoses Not on filedocumented in this encounter Additional Health Concerns Infection Onset Date Last Indicated Resolved Time COVID-19 Rule-Out 11/08/2021 11/08/2021 11/08/2021 8:06 AM EDT documented as of this encounter Care Teams Director Of Brand Marketing Relationship Specialty Start Date End Date Edgar Fournier MD [address] [place] [address] PCP - General 12/25/20 Enrique Griffith MD [address] [place] [address] Referring Physician Nephrology 01/08/21 documented as of this encounter
--- OUTSIDE RECORDS SUMMARY | 2024-07-12 13:08 | XMS_ITS | Encounter Summary ---
Author Organization [facility] Address [address] [id number] Care Team Providers Care Scaffold Worker Name Role Phone Edgar Fournier MD Primary Care Provider [phone] Enrique Griffith MD Unavailable [phone] Encounter Details Date Type Department Care Team (Late st Contact Info) Description 04/18/2017 [facility] OT[facility] Encounter HISTORICAL OTTR [address] [place] [address] Erika Truong, RN [facility] [id number] [address] [place] [address] Social History Tobacco Use Types Packs/Day Years Used Date Smoking Tobacco: Never Assessed Sex and Gender Information Value Date Recorded Sex Assigned at Not on file Legal Sex Male 6:10 PM EDT Gender Identity Not on file Sexual Orientation Straight 03/02/2021 10 :04 AM EDT documented as of this encounter Miscellaneous Notes * Progress Notes - Erika Truong - 04/18/2017 1:39 PM EDT tried to call pt regarding TIPS revision - unable to reach at pt or numbers documented in this encounter Plan of Treatment Not on file documented as of this encounter Visit Diagnoses Not on filedocumented in this encounter Additional Health Concerns Infection Onset Date Last Indicated Resolved Time COVID-19 Rule-Out 11/08/2021 11/08/2021 11/08/2021 8:06 AM EDT documented as of this encounter Care Teams Scaffold Worker Relationship Specialty Start Date End Date Edgar Fournier MD [address] [place] [address] PCP - General 12/25/20 Enrique Griffith MD [address] [place] [address] Referring Physician Nephrology 01/08/21 documented as of this encounter
--- OUTSIDE RECORDS SUMMARY | 2024-07-12 13:08 | XMS_ITS | Encounter Summary ---
Author Organization [facility] Address [address] [id number] Care Team Providers Care Slate Cutter Name Role Phone Edgar Fournier MD Primary Care Provider [phone] Enrique Griffith MD Unavailable [phone] Encounter Details Date Type Department Care Team (Late st Contact Info) Description 12/28/2016 [facility] OT[facility] Encounter HISTORICAL OTTR [address] [place] [address] Bridgett Márquez, RN [facility] [id number] [address] [phone] Social History Tobacco Use Types Packs/Day Years Used Date Smoking Tobacco: Never Assessed Sex and Gender Information Value Date Recorded Sex Assigned at Not on file Legal Sex Male 6:10 PM EDT Gender Identity Not on file Sexual Orientation Straight 03/02/2021 10 :04 AM EDT documented as of this encounter Miscellaneous Notes * Progress Notes - Bridgett Márquez - 12/28/2016 11:16 AM EDT Orders emailed to endoschedulers for capsule EGD and colonoscopy. documented in this encounter Plan of Treatment Not on file documented as of this encounter Procedures Procedure Name Priority Date/Time Associated Diagnosis Comments OTTR LAB RESULTS (MANUAL) Routine 12/28/2016 7:05 AM EDT documented in this encounter Results * OTTR LAB RESULTS (MANUAL) (12/28/2016 7:05 AM EDT) External Estimated GFR 70.91 EXTERNAL LAB 12/28/2016 7:05 AM EDT Narrative EXTERNAL LAB - 12/28/2016 8:10 AM EDT Automated LAB Interface us Historical Provider LAB BLOOD ORDERABLES Yoselin l Result EXTERNAL LAB documented in this encounter Visit Diagnoses Not on filedocumented in this encounter Additional Health Concerns Infection Onset Date Last Indicated Resolved Time COVID-19 Rule-Out 11/08/2021 11/08/2021 11/08/2021 8:06 AM EDT documented as of this encounter Care Teams Slate Cutter Relationship Specialty Start Date End Date Edgar Fournier MD [address] [place] [address] PCP - General 12/25/20 Enrique Griffith MD [address] [place] [phone] Referring Physician Nephrology 01/08/21 documented as of this encounter
--- OUTSIDE RECORDS SUMMARY | 2024-07-12 13:08 | XMS_ITS | Encounter Summary ---
Author Organization [facility] Address [address] [id number] Care Team Providers Care Chronic Care Nurse Name Role Phone Edgar Fournier MD Primary Care Provider [phone] Enrique Griffith MD Unavailable [phone] Encounter Details Date Type Department Care Team (Late st Contact Info) Description 01/27/2017 [facility] OT[facility] Encounter HISTORICAL OTTR [address] [place] [address] Bridgett Márquez, RN [facility] [id number] [address] [phone] Social History Tobacco Use Types Packs/Day Years Used Date Smoking Tobacco: Never Assessed Sex and Gender Information Value Date Recorded Sex Assigned at Not on file Legal Sex Male 6:10 PM EDT Gender Identity Not on file Sexual Orientation Straight 03/02/2021 10 :04 AM EDT documented as of this encounter Miscellaneous Notes * Progress Notes - Bridgett Márquez - 01/27/2017 10:21 AM EDT MELD score updated in UNOS to 17 documented in this encounter Plan of Treatment Not on file documented as of this encounter Visit Diagnoses Not on filedocumented in this encounter Additional Health Concerns Infection Onset Date Last Indicated Resolved Time COVID-19 Rule-Out 11/08/2021 11/08/2021 11/08/2021 8:06 AM EDT documented as of this encounter Care Teams Chronic Care Nurse Relationship Specialty Start Date End Date Edgar Fournier MD [address] [place] [address] PCP - General 12/25/20 Enrique Griffith MD [address] [place] [address] Referring Physician Nephrology 01/08/21 documented as of this encounter
--- OUTSIDE RECORDS SUMMARY | 2024-07-12 13:08 | XMS_ITS | Encounter Summary ---
Author Organization [facility] Address [address] [id number] Care Team Providers Care Lock Plater Name Role Phone Edgar Fournier MD Primary Care Provider [phone] Enrique Griffith MD Unavailable [phone] Encounter Details Date Type Department Care Team (Late st Contact Info) Description 02/28/2017 [facility] OT[facility] Encounter HISTORICAL OTTR [address] [place] [address] Bridgett áMrquez, RN [facility] [id number] [address] [place] [address] Social History Tobacco Use Types Packs/Day Years Used Date Smoking Tobacco: Never Assessed Sex and Gender Information Value Date Recorded Sex Assigned at Not on file Legal Sex Male 6:10 PM EDT Gender Identity Not on file Sexual Orientation Straight 03/02/2021 10 :04 AM EDT documented as of this encounter Miscellaneous Notes * Progress Notes - Bridgett Márquez - 02/28/2017 9:58 AM EDT Pt to RTC 03-31-17 documented in this encounter Plan of Treatment Not on file documented as of this encounter Visit Diagnoses Not on filedocumented in this encounter Additional Health Concerns Infection Onset Date Last Indicated Resolved Time COVID-19 Rule-Out 11/08/2021 11/08/2021 11/08/2021 8:06 AM EDT documented as of this encounter Care Teams Lock Plater Relationship Specialty Start Date End Date Edgar Fournier MD [address] [place] [address] PCP - General 12/25/20 Enrique Griffith MD [address] [place] [address] Referring Physician Nephrology 01/08/21 documented as of this encounter
--- OUTSIDE RECORDS SUMMARY | 2024-07-12 13:08 | XMS_ITS | Encounter Summary ---
Author Organization [facility] Address [address] [id number] Care Team Providers Care Syrup Mixer Assistant Name Role Phone Edgar Fournier MD Primary Care Provider [phone] Enrique Griffith MD Unavailable [phone] Encounter Details Date Type Department Care Team (Late st Contact Info) Description 03/03/2017 [facility] OT[facility] Encounter HISTORICAL OTTR [address] [place] [address] Bridgett Márquez, RN [facility] LIVER [id number] [address] [phone] Social History Tobacco Use Types Packs/Day Years Used Date Smoking Tobacco: Never Assessed Sex and Gender Information Value Date Recorded Sex Assigned at Not on file Legal Sex Male 6:10 PM EDT Gender Identity Not on file Sexual Orientation Straight 03/02/2021 10 :04 AM EDT documented as of this encounter Miscellaneous Notes * Progress Notes - Bridgett Márquez - 03/03/2017 7:32 AM EDT Rec'd ph call from patient. He adv he was in ED at [facility] last 2 nights with abdominal pain. Was dx with pancreatitis or gall stones. Will obtain copy of labs and scans. documented in this encounter Plan of Treatment Not on file documented as of this encounter Procedures Procedure Name Priority Date/Time Associated Diagnosis Comments OTTR LAB RESULTS (MANUAL) Routine 03/03/2017 5:12 PM EDT documented in this encounter Results * OTTR LAB RESULTS (MANUAL) (03/03/2017 5:12 PM EDT) External Estimated GFR 56.45 EXTERNAL LAB 03/03/2017 5:12 PM EDT Narrative EXTERNAL LAB - 03/03/2017 5:39 PM EDT Automated LAB Interface us Historical Provider LAB BLOOD ORDERABLES Yoselin robles Result EXTERNAL LAB documented in this encounter Visit Diagnoses Not on filedocumented in this encounter Additional Health Concerns Infection Onset Date Last Indicated Resolved Time COVID-19 Rule-Out 11/08/2021 11/08/2021 11/08/2021 8:06 AM EDT documented as of this encounter Care Teams Syrup Mixer Assistant Relationship Specialty Start Date End Date Edgar Fournier MD [address] [place] [address] PCP - General 12/25/20 Enrique Griffith MD [address] [place] [address] Referring Physician Nephrology 01/08/21 documented as of this encounter
--- OUTSIDE RECORDS SUMMARY | 2024-07-12 13:08 | XMS_ITS | Encounter Summary ---
Author Organization [facility] Address [address] [place] [address] Care Team Providers Care Vp Customer Service Name Role Phone Edgar Fournier MD Primary Care Provider Enrique Griffith MD Unavailable [phone] Encounter Details Date Type Department Care Team (Late st Contact Info) Description 12/06/2016 [facility] OTTR Encounter HISTORICAL OTTR [address] [place] [address] Maren Friedman MD [address] [facility] [address] [place] [address] Social History Tobacco Use Types Packs/Day Years Used Date Smoking Tobacco: Never Assessed Sex and Gender Information Value Date Recorded Sex Assigned at Not on file Legal Sex Male 6:10 PM EDT Gender Identity Not on file Sexual Orientation Straight 03/02/2021 10 :04 AM EDT documented as of this encounter Miscellaneous Notes * Progress Notes - Maren Friedman - 12/06/2016 9:31 AM EDT 41-year-old male with a history of SAL-induced liver cirrhosis, Gilbert's syndrome came in for follow up appointment. MELD NA 18 today. Recent hospitalization for upper GI bleed, large esophageal varices seen, failed banding, status post TIPS on 10/18/16 Repeat EGD on 10/19/16 showed post-banding ulcers, no varices were seen. 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 CT abdomen in the ED on 11/22/16 showed presence of varices. History of lower extremity edema, no ascites, currently on Lasix 20 mg and spironolactone 50 mg. Creatinine 1.2, from baseline 0.7 Last contrast-enhanced abdominal imaging abdominal imaging CT in November 2016 Plan: Continue carvedilol, history of hypertension, varices seen on recent imaging Discontinue diuretics, repeat BMP in 1 week Follow results of Doppler ultrasound of the liver Return in 6 weeks documented in this encounter Plan of Treatment Not on file documented as of this encounter Procedures Procedure Name Priority Date/Time Associated Diagnosis Comments OTTR LAB RESULTS (MANUAL) Routine 12/06/2016 7:55 AM EDT documented in this encounter Results * OTTR LAB RESULTS (MANUAL) (12/06/2016 7:55 AM EDT) External Estimated GFR 67.63 EXTERNAL LAB 12/06/2016 7:55 AM EDT Narrative EXTERNAL LAB - 12/06/2016 9:03 AM EDT Automated LAB Interface us Historical Provider LAB BLOOD ORDERABLES Yoselin robles Result EXTERNAL LAB documented in this encounter Visit Diagnoses Not on filedocumented in this encounter Additional Health Concerns Infection Onset Date Last Indicated Resolved Time COVID-19 Rule-Out 11/08/2021 11/08/2021 11/08/2021 8:06 AM EDT documented as of this encounter Care Teams Vp Customer Service Relationship Specialty Start Date End Date Edgar Fournier MD [address] [place] [address] [place] [address] PCP - General 12/25/20 Enrique Griffith MD [address] [place] [address] Referring Physician Nephrology 01/08/21 documented as of this encounter
--- OUTSIDE RECORDS SUMMARY | 2024-07-12 13:08 | XMS_ITS | Encounter Summary ---
Author Organization [facility] Address [address] [place] [address] Care Team Providers Care Ambulatory Care Name Role Phone Edgar Fournier MD Primary Care Provider Enrique Griffith MD Unavailable [phone] Encounter Details Date Type Department Care Team (Late st Contact Info) Description 04/11/2017 [facility] OTTR Encounter HISTORICAL OTTR [address] [place] [address] Kathya Hassan PA [address] [facility] [address] [place] [address] Social History Tobacco Use Types Packs/Day Years Used Date Smoking Tobacco: Never Assessed Sex and Gender Information Value Date Recorded Sex Assigned at Not on file Legal Sex Male 6:10 PM EDT Gender Identity Not on file Sexual Orientation Straight 03/02/2021 10 :04 AM EDT documented as of this encounter Miscellaneous Notes * Progress Notes - Kathya Hassan - 04/11/2017 6:33 PM EDT Echo and stress test normal. documented in this encounter Plan of Treatment Not on file documented as of this encounter Visit Diagnoses Not on filedocumented in this encounter Additional Health Concerns Infection Onset Date Last Indicated Resolved Time COVID-19 Rule-Out 11/08/2021 11/08/2021 11/08/2021 8:06 AM EDT documented as of this encounter Care Teams Ambulatory Care Relationship Specialty Start Date End Date Edgar Fournier MD [address] [place] [address] PCP - General 12/25/20 Enrique Griffith MD [address] [place] [address] Referring Physician Nephrology 01/08/21 documented as of this encounter
--- OUTSIDE RECORDS SUMMARY | 2024-07-12 13:08 | XMS_ITS | Encounter Summary ---
Author Organization [facility] Address [address] [id number] Care Team Providers Care Driver License Examiner Name Role Phone Edgar Fournier MD Primary Care Provider [phone] Enrique Griffith MD Unavailable [phone] Encounter Details Date Type Department Care Team (Late st Contact Info) Description 03/08/2017 [facility] OTTR Encounter HISTORICAL OTTR [address] [place] [address] Bridgett Márquez, RN [facility] [id number] [address] [phone] Social History Tobacco Use Types Packs/Day Years Used Date Smoking Tobacco: Never Assessed Sex and Gender Information Value Date Recorded Sex Assigned at Not on file Legal Sex Male 6:10 PM EDT Gender Identity Not on file Sexual Orientation Straight 03/02/2021 10 :04 AM EDT documented as of this encounter Miscellaneous Notes * Progress Notes - Bridgett Márquez - 03/08/2017 12:04 PM EDT Spoke with Dr. Evans at [facility]. he adv patient to be d/c home today. HE and pain improved. Reviewed with EER. documented in this encounter Plan of Treatment Not on file documented as of this encounter Visit Diagnoses Not on filedocumented in this encounter Additional Health Concerns Infection Onset Date Last Indicated Resolved Time COVID-19 Rule-Out 11/08/2021 11/08/2021 11/08/2021 8:06 AM EDT documented as of this encounter Care Teams Driver License Examiner Relationship Specialty Start Date End Date Edgar Fournier MD [address] [place] [address] PCP - General 12/25/20 Enrique Griffith MD [address] [place] [address] Referring Physician Nephrology 01/08/21 documented as of this encounter
--- OUTSIDE RECORDS SUMMARY | 2024-07-12 13:08 | XMS_ITS | Encounter Summary ---
Author Organization [facility] Address [address] [place] [address] Care Team Providers Care Chief Of Surgery Name Role Phone Edgar Fournier MD Primary Care Provider Enrique Griffith MD Unavailable [phone] Encounter Details Date Type Department Care Team (Late st Contact Info) Description 04/14/2017 [facility] OTTR Encounter HISTORICAL OTTR [address] [place] [address] Shara Huff, WIRELESS CELLULAR TECHNICIAN, DNP [address] [facility] [address] [place] [address] Social History Tobacco Use Types Packs/Day Years Used Date Smoking Tobacco: Never Assessed Sex and Gender Information Value Date Recorded Sex Assigned at Not on file Legal Sex Male 6:10 PM EDT Gender Identity Not on file Sexual Orientation Straight 03/02/2021 10 :04 AM EDT documented as of this encounter Miscellaneous Notes * Progress Notes - Shara Huff - 04/14/2017 4:30 PM EDT 42 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 Decompensated Cirrhosis 2/2 SAL, - MELD 22 today. Remains listed active at this time. Please do daily CMP and INR to follow MELD forUNOS updates. - US Abdomen Yuval/Art with patent hepatic vasculature with appropriate directional flow. Patent TIPS. Gradient in distal TIPS may indicate stenosis per radiology read. Hepatology recommending TIPS revision as outpatient. - Infectious workup: UA clean. blood cultures NGTD. No pocket of ascites identified for tap per primary team. GI Comprehensive Panel, C. diff, CMV by PCR and Yury Salinas by PCR given N/V, pending. CARMEN - Crea resolved to 1.2 today Diabetes, uncontrolled - Glucose consistently above 300's while inpatient, recommend endocrine consultation with insulin adjustment. - HgB A1c 6.8%, Protein malnutrition - Albumin 3.0 Discharge per primary team, to follow up with Transplant Hepatology. documented in this encounter Plan of Treatment Not on file documented as of this encounter Visit Diagnoses Not on filedocumented in this encounter Additional Health Concerns Infection Onset Date Last Indicated Resolved Time COVID-19 Rule-Out 11/08/2021 11/08/2021 11/08/2021 8:06 AM EDT documented as of this encounter Care Teams Chief Of Surgery Relationship Specialty Start Date End Date Edgar Fournier MD [address] [place] [address] PCP - General 12/25/20 Enrique Griffith MD [address] [place] [address] Referring Physician Nephrology 01/08/21 documented as of this encounter
--- OUTSIDE RECORDS SUMMARY | 2024-07-12 13:08 | XMS_ITS | Encounter Summary ---
Author Organization [facility] Address [address] [place] [address] Care Team Providers Care Laborer Landscape Name Role Phone Edgar Fournier MD Primary Care Provider [phone] Enrique Griffith MD Unavailable [phone] Encounter Details Date Type Department Care Team (Late st Contact Info) Description 01/05/2017 [facility] OTTR Encounter HISTORICAL OTTR [address] [place] [address] Sandrita Ferguson, BERRY PICKER MACHINE OPERATOR [address] [facility] [address] [place] [address] Social History Tobacco Use Types Packs/Day Years Used Date Smoking Tobacco: Never Assessed Sex and Gender Information Value Date Recorded Sex Assigned at Not on file Legal Sex Male 6:10 PM EDT Gender Identity Not on file Sexual Orientation Straight 03/02/2021 10 :04 AM EDT documented as of this encounter Miscellaneous Notes * Progress Notes - Sandrita Ferguson - 01/05/2017 1:16 PM EDT 41y male with history of Kmi cirrhosis, currently listed active for transplant, esophageal varices, Gilbert syndrome, type II diabetic who presented to the [facility] ED for evaluation of hematemesis and melena. Patient stated he had 2 episodes of bright red emesis between 10 PM to 11 PM last night. Each emesis is about half of a tablespoon. And he also had one melena yesterday without bright red blood, described as dark red. Patient reported one temperature a home of 100.8, has been afebrile here with normal WBC. He will remain listed active for transplant for now. Cirrhosis: - MELD Na 19, listed active for liver transplant - decompensated by EV bleed, HE, ascites, now s/p TIPS - question of repeat bleeding after TIPS - Please consult Hepatology - Recommend doppler US liver/ TIPS Hematemesis and melena - on protonix and octreotide - Please consult Hepatology HE: -on lactulose and rifaximin - avoid dehydration, diarrhea, and constipation documented in this encounter Plan of Treatment Not on file documented as of this encounter Visit Diagnoses Not on filedocumented in this encounter Additional Health Concerns Infection Onset Date Last Indicated Resolved Time COVID-19 Rule-Out 11/08/2021 11/08/2021 11/08/2021 8:06 AM EDT documented as of this encounter Care Teams Laborer Landscape Relationship Specialty Start Date End Date Edgar Fournier MD [address] [place] [address] PCP - General 12/25/20 Enrique Griffith MD [address] [place] [id number] Referring Physician Nephrology 01/08/21 documented as of this encounter
--- OUTSIDE RECORDS SUMMARY | 2024-07-12 13:08 | XMS_ITS | Encounter Summary ---
Author Organization [facility] Address [address] [id number] Care Team Providers Care Flat Bed Knitter Name Role Phone Edgar Fournier MD Primary Care Provider [phone] Enrique Griffith MD Unavailable [phone] Encounter Details Date Type Department Care Team (Late st Contact Info) Description 04/13/2017 [facility] Encounter HISTORICAL OTTR [address] [place] [address] Erika Truong, RN [facility] [id number] [address] [place] [address] Social History Tobacco Use Types Packs/Day Years Used Date Smoking Tobacco: Never Assessed Sex and Gender Information Value Date Recorded Sex Assigned at Not on file Legal Sex Male 6:10 PM EDT Gender Identity Not on file Sexual Orientation Straight 03/02/2021 10 :04 AM EDT documented as of this encounter Miscellaneous Notes * Progress Notes - Erika rTuong - 04/13/2017 1:15 PM EDT orders in [facility] for [facility] - pt has rtc apt May 30 - please add on documented in this encounter Plan of Treatment Not on file documented as of this encounter Procedures Procedure Name Priority Date/Time Associated Diagnosis Comments OTTR LAB RESULTS (MANUAL) Routine 04/12/2017 11:23 PM EDT documented in this encounter Results * OTTR LAB RESULTS (MANUAL) (04/12/2017 11:23 PM EDT) External Estimated GFR 51.13 EXTERNAL LAB 04/12/2017 11:2 3 PM EDT Narrative EXTERNAL LAB - 04/13/2017 6:47 AM EDT Automated LAB Interface us Historical Provider LAB BLOOD ORDERABLES Yoselin robles Result EXTERNAL LAB documented in this encounter Visit Diagnoses Not on filedocumented in this encounter Additional Health Concerns Infection Onset Date Last Indicated Resolved Time COVID-19 Rule-Out 11/08/2021 11/08/2021 11/08/2021 8:06 AM EDT documented as of this encounter Care Teams Flat Bed Knitter Relationship Specialty Start Date End Date Edgar Fournier MD [address] [place] [address] PCP - General 12/25/20 Enrique Griffith MD [address] [place] [id number] Referring Physician Nephrology 01/08/21 documented as of this encounter
--- OUTSIDE RECORDS SUMMARY | 2024-07-12 13:08 | XMS_ITS | Encounter Summary ---
Author Organization [facility] Address [address] [id number] Care Team Providers Care Self Propelled Mining Machine Operator Name Role Phone Edgar Fournier MD Primary Care Provider [phone] Enrique Griffith MD Unavailable [phone] Encounter Details Date Type Department Care Team (Late st Contact Info) Description 01/05/2017 [facility] OTTR Encounter HISTORICAL OTTR [address] [place] [address] Bridgett Márquez, RN [facility] [id number] [address] [phone] Social History Tobacco Use Types Packs/Day Years Used Date Smoking Tobacco: Never Assessed Sex and Gender Information Value Date Recorded Sex Assigned at Not on file Legal Sex Male 6:10 PM EDT Gender Identity Not on file Sexual Orientation Straight 03/02/2021 10 :04 AM EDT documented as of this encounter Miscellaneous Notes * Progress Notes - Bridgett Márquez - 01/05/2017 10:06 AM EDT Patient admitted to ED for GI bleed. Listed active with MELD of 16. MELD currently 19 documented in this encounter Plan of Treatment Not on file documented as of this encounter Procedures Procedure Name Priority Date/Time Associated Diagnosis Comments OTTR LAB RESULTS (MANUAL) Routine 01/05/2017 4:05 AM EDT documented in this encounter Results * OTTR LAB RESULTS (MANUAL) (01/05/2017 4:05 AM EDT) External Estimated GFR 65.79 EXTERNAL LAB 01/05/2017 4:05 AM EDT Narrative EXTERNAL LAB - 01/05/2017 9:11 AM EDT Automated LAB Interface us Historical Provider LAB BLOOD ORDERABLES Yoselin robles Result EXTERNAL LAB documented in this encounter Visit Diagnoses Not on filedocumented in this encounter Additional Health Concerns Infection Onset Date Last Indicated Resolved Time COVID-19 Rule-Out 11/08/2021 11/08/2021 11/08/2021 8:06 AM EDT documented as of this encounter Care Teams Self Propelled Mining Machine Operator Relationship Specialty Start Date End Date Edgar Fournier MD [address] [place] [address] PCP - General 12/25/20 Enrique Griffith MD [address] [place] [address] Referring Physician Nephrology 01/08/21 documented as of this encounter
--- OUTSIDE RECORDS SUMMARY | 2024-07-12 13:08 | XMS_ITS | Encounter Summary ---
Author Organization [facility] Address [address] [place] [address] Care Team Providers Care Forestry Biology Specialist Name Role Phone Edgar Fournier MD Primary Care Provider [phone] Enrique Griffith MD Unavailable [phone] Encounter Details Date Type Department Care Team (Late st Contact Info) Description 04/28/2017 [facility] OTTR Encounter HISTORICAL OTTR [address] [place] [address] Christa Knowles [address] [phone] Social History Tobacco Use Types Packs/Day Years Used Date Smoking Tobacco: Never Assessed Sex and Gender Information Value Date Recorded Sex Assigned at Not on file Legal Sex Male 6:10 PM EDT Gender Identity Not on file Sexual Orientation Straight 03/02/2021 10 :04 AM EDT documented as of this encounter Miscellaneous Notes * Progress Notes - Christa Knowles - 04/28/2017 3:07 PM EDT DOS 05/04/17 Op Cpt TIPS Revision [id number], NPR per online tool and automated phone system. Nurse and IR notified via email. documented in this encounter Plan of Treatment Not on file documented as of this encounter Visit Diagnoses Not on filedocumented in this encounter Additional Health Concerns Infection Onset Date Last Indicated Resolved Time COVID-19 Rule-Out 11/08/2021 11/08/2021 11/08/2021 8:06 AM EDT documented as of this encounter Care Teams Forestry Biology Specialist Relationship Specialty Start Date End Date Edgar Fournier MD [address] [place] [address] PCP - General 12/25/20 Enrique Griffith MD [address] [place] [address] Referring Physician Nephrology 01/08/21 documented as of this encounter
--- OUTSIDE RECORDS SUMMARY | 2024-07-12 13:08 | XMS_ITS | Encounter Summary ---
Author Organization [facility] Address [address] [place] [address] Care Team Providers Care Stamping Die Try Out Worker Name Role Phone Edgar Fournier MD Primary Care Provider [phone] Enrique Griffith MD Unavailable [phone] Encounter Details Date Type Department Care Team (Late st Contact Info) Description 05/10/2017 [facility] OTTR Encounter HISTORICAL OTTR [address] [place] [address] Christa Knowles [address] [phone] Social History Tobacco Use Types Packs/Day Years Used Date Smoking Tobacco: Never Assessed Sex and Gender Information Value Date Recorded Sex Assigned at Not on file Legal Sex Male 6:10 PM EDT Gender Identity Not on file Sexual Orientation Straight 03/02/2021 10 :04 AM EDT documented as of this encounter Miscellaneous Notes * Progress Notes - Christa Knowles - 05/10/2017 4:47 PM EDT DOS 05/31/17 Op Cpt US Abd Doppler w/ [employer] [id number], [id number], both NPR per [place] online pre-cert tool and automated system. Nurse, APM and Rad updated. documented in this encounter Plan of Treatment Not on file documented as of this encounter Visit Diagnoses Not on filedocumented in this encounter Additional Health Concerns Infection Onset Date Last Indicated Resolved Time COVID-19 Rule-Out 11/08/2021 11/08/2021 11/08/2021 8:06 AM EDT documented as of this encounter Care Teams Stamping Die Try Out Worker Relationship Specialty Start Date End Date Edgar Fournier MD [address] [place] [address] PCP - General 12/25/20 Enrique Griffith MD [address] [place] [address] Referring Physician Nephrology 01/08/21 documented as of this encounter
--- OUTSIDE RECORDS SUMMARY | 2024-07-12 13:08 | XMS_ITS | Encounter Summary ---
Author Organization [facility] Address [address] [place] [address] Care Team Providers Care Rehanger Name Role Phone Edgar Fournier MD Primary Care Provider [phone] Enrique Griffith MD Unavailable [phone] Encounter Details Date Type Department Care Team (Late st Contact Info) Description 05/02/2017 [facility] OTTR Encounter HISTORICAL OTTR [address] [place] [address] Carla Hammonds [facility] [address] [place] [address] Social History Tobacco Use Types Packs/Day Years Used Date Smoking Tobacco: Never Assessed Sex and Gender Information Value Date Recorded Sex Assigned at Not on file Legal Sex Male 6:10 PM EDT Gender Identity Not on file Sexual Orientation Straight 03/02/2021 10 :04 AM EDT documented as of this encounter Miscellaneous Notes * Progress Notes - Carla Hammonds - 05/02/2017 1:55 PM EDT Spoke with pt regarding apt on 05/04 arriving at 9:30 for f/u to TIPS revison, as well as apt on 05/31 arriving at 12:00PM for labs, hep, and US. Special instructions give, NPO after 8:15AM on the dayof testing. Apt letter to be mailed. Pr confirmed apt. Pt verbalized understanding. documented in this encounter Plan of Treatment Not on file documented as of this encounter Procedures Procedure Name Priority Date/Time Associated Diagnosis Comments OTTR LAB RESULTS (MANUAL) Routine 05/04/2017 10:13 AM EDT documented in this encounter Results * OTTR LAB RESULTS (MANUAL) (05/04/2017 10:13 AM EDT) External Estimated GFR 68.26 EXTERNAL LAB 05/04/2017 10:1 3 AM EDT Narrative EXTERNAL LAB - 05/04/2017 10:52 AM EDT Automated LAB Interface us Historical Provider LAB BLOOD ORDERABLES Yoselni l Result EXTERNAL LAB documented in this encounter Visit Diagnoses Not on filedocumented in this encounter Additional Health Concerns Infection Onset Date Last Indicated Resolved Time COVID-19 Rule-Out 11/08/2021 11/08/2021 11/08/2021 8:06 AM EDT documented as of this encounter Care Teams Rehanger Relationship Specialty Start Date End Date Edgar Fournier MD [address] [place] [address] PCP - General 12/25/20 Enrique Griffith MD [address] [place] [address] Referring Physician Nephrology 01/08/21 documented as of this encounter
--- OUTSIDE RECORDS SUMMARY | 2024-07-12 13:08 | XMS_ITS | Encounter Summary ---
Author Organization [facility] Address [address] [id number] Care Team Providers Care Audio Visual Specialist Name Role Phone Edgar Fournier MD Primary Care Provider [phone] Enrique Griffith MD Unavailable [phone] Encounter Details Date Type Department Care Team (Late st Contact Info) Description 03/08/2017 [facility] OTTR Encounter HISTORICAL OTTR [address] [place] [address] Bridgett Márquez, RN [facility] [id number] [address] [phone] Social History Tobacco Use Types Packs/Day Years Used Date Smoking Tobacco: Never Assessed Sex and Gender Information Value Date Recorded Sex Assigned at Not on file Legal Sex Male 6:10 PM EDT Gender Identity Not on file Sexual Orientation Straight 03/02/2021 10 :04 AM EDT documented as of this encounter Miscellaneous Notes * Progress Notes - Bridgett Márquez - 03/08/2017 11:28 AM EDT Patient needs to be transferred to to care. Paged Dr. Evans at [facility] ([phone]) documented in this encounter Plan of Treatment Not on file documented as of this encounter Procedures Procedure Name Priority Date/Time Associated Diagnosis Comments OTTR LAB RESULTS (MANUAL) Routine 03/08/2017 5:54 AM EDT documented in this encounter Results * OTTR LAB RESULTS (MANUAL) (03/08/2017 5:54 AM EDT) External Estimated GFR 67.63 EXTERNAL LAB 03/08/2017 5:54 AM EDT Narrative EXTERNAL LAB - 03/08/2017 6:56 AM EDT Automated LAB Interface us Historical Provider LAB BLOOD ORDERABLES Yoselin robles Result EXTERNAL LAB documented in this encounter Visit Diagnoses Not on filedocumented in this encounter Additional Health Concerns Infection Onset Date Last Indicated Resolved Time COVID-19 Rule-Out 11/08/2021 11/08/2021 11/08/2021 8:06 AM EDT documented as of this encounter Care Teams Audio Visual Specialist Relationship Specialty Start Date End Date Edgar Fournier MD [address] [place] [address] PCP - General 12/25/20 Enrique Griffith MD [address] [place] [address] Referring Physician Nephrology 01/08/21 documented as of this encounter
--- OUTSIDE RECORDS SUMMARY | 2024-07-12 13:08 | XMS_ITS | Encounter Summary ---
Author Organization [facility] Address [address] [place] [address] Care Team Providers Care Fitter Up Name Role Phone Edgar Fournier MD Primary Care Provider [phone] Enrique Griffith MD Unavailable [phone] Encounter Details Date Type Department Care Team (Late st Contact Info) Description 03/21/2017 [facility] OTTR Encounter HISTORICAL OTTR [address] [place] [address] George Roxi Harish [facility] [address] [place] [address] Social History Tobacco Use Types Packs/Day Years Used Date Smoking Tobacco: Never Assessed Sex and Gender Information Value Date Recorded Sex Assigned at Not on file Legal Sex Male 6:10 PM EDT Gender Identity Not on file Sexual Orientation Straight 03/02/2021 10 :04 AM EDT documented as of this encounter Miscellaneous Notes * Progress Notes - George November - 03/21/2017 4:03 PM EDT Unable to leave for patient. Sent email regarding appt on 04/04 arriving at 7:00am. Schedule previously mailed. Requested return call to confirm. documented in this encounter Plan of Treatment Not on file documented as of this encounter Visit Diagnoses Not on filedocumented in this encounter Additional Health Concerns Infection Onset Date Last Indicated Resolved Time COVID-19 Rule-Out 11/08/2021 11/08/2021 11/08/2021 8:06 AM EDT documented as of this encounter Care Teams Fitter Up Relationship Specialty Start Date End Date Edgar Fournier MD [address] [place] [address] PCP - General 12/25/20 Enrique Griffith MD [address] [place] [address] Referring Physician Nephrology 01/08/21 documented as of this encounter
--- OUTSIDE RECORDS SUMMARY | 2024-07-12 13:08 | XMS_ITS | Encounter Summary ---
Author Organization [facility] Address [address] [id number] Care Team Providers Care Bellows Assembler Name Role Phone Edgar Fournier MD Primary Care Provider [phone] Enrique Griffith MD Unavailable [phone] Encounter Details Date Type Department Care Team (Late st Contact Info) Description 12/13/2016 [facility] OTTR Encounter HISTORICAL OTTR [address] [place] [address] Bridgett Márquez, RN [facility] [id number] [address] [phone] Social History Tobacco Use Types Packs/Day Years Used Date Smoking Tobacco: Never Assessed Sex and Gender Information Value Date Recorded Sex Assigned at Not on file Legal Sex Male 6:10 PM EDT Gender Identity Not on file Sexual Orientation Straight 03/02/2021 10 :04 AM EDT documented as of this encounter Miscellaneous Notes * Progress Notes - Bridgett Márquez - 12/13/2016 9:55 AM EDT Patient to RTC 17. Need udpated labs from patient. documented in this encounter Plan of Treatment Not on file documented as of this encounter Visit Diagnoses Not on filedocumented in this encounter Additional Health Concerns Infection Onset Date Last Indicated Resolved Time COVID-19 Rule-Out 11/08/2021 11/08/2021 11/08/2021 8:06 AM EDT documented as of this encounter Care Teams Bellows Assembler Relationship Specialty Start Date End Date Edgar Fournier MD [address] [place] [address] PCP - General 12/25/20 Enrique Griffith MD [address] [place] [address] Referring Physician Nephrology 01/08/21 documented as of this encounter
--- OUTSIDE RECORDS SUMMARY | 2024-07-12 13:08 | XMS_ITS | Encounter Summary ---
Author Organization [facility] Address [address] [phone] Care Team Providers Care Vaccine Key Customer Leader Name Role Phone Edgar Fournier MD Primary Care Provider [phone] Enrique Griffith MD Unavailable [phone] Encounter Details Date Type Department Care Team (Late st Contact Info) Description 03/10/2017 [facility] OTTR Encounter HISTORICAL OTTR [address] [place] [address] Bridgett Márquez, RN [facility] [id number] [address] [phone] Social History Tobacco Use Types Packs/Day Years Used Date Smoking Tobacco: Never Assessed Sex and Gender Information Value Date Recorded Sex Assigned at Not on file Legal Sex Male 6:10 PM EDT Gender Identity Not on file Sexual Orientation Straight 03/02/2021 10 :04 AM EDT documented as of this encounter Miscellaneous Notes * Progress Notes - Bridgett Márquez - 03/10/2017 8:09 AM EDT Patient due for annual cardiac testing . Orders in [facility], msg to AG to schedule. documented in this encounter Plan of Treatment Not on file documented as of this encounter Visit Diagnoses Not on filedocumented in this encounter Additional Health Concerns Infection Onset Date Last Indicated Resolved Time COVID-19 Rule-Out 11/08/2021 11/08/2021 11/08/2021 8:06 AM EDT documented as of this encounter Care Teams Vaccine Key Customer Leader Relationship Specialty Start Date End Date Edgar Fournier MD [address] [place] [address] PCP - General 12/25/20 Enrique Griffith MD [address] [place] [address] Referring Physician Nephrology 01/08/21 documented as of this encounter
--- OUTSIDE RECORDS SUMMARY | 2024-07-12 13:08 | XMS_ITS | Encounter Summary ---
Author Organization [facility] Address [address] [phone] Care Team Providers Care Microbiological Analyst Name Role Phone Edgar Fournier MD Primary Care Provider [phone] Enrique Griffith MD Unavailable [phone] Encounter Details Date Type Department Care Team (Late st Contact Info) Description 01/11/2017 [facility] OTTR Encounter HISTORICAL OTTR [address] [place] [address] Bridgett Márquez, RN [facility] [id number] [address] [phone] Social History Tobacco Use Types Packs/Day Years Used Date Smoking Tobacco: Never Assessed Sex and Gender Information Value Date Recorded Sex Assigned at Not on file Legal Sex Male 6:10 PM EDT Gender Identity Not on file Sexual Orientation Straight 03/02/2021 10 :04 AM EDT documented as of this encounter Miscellaneous Notes * Progress Notes - Bridgett Márquez - 01/11/2017 9:14 AM EDT Patient d/c from hospital 01-09-17. Patient scheduled to RTC 01-17-17. Phd patient-s/.ely Wolfe, he adv he is feeling better. confirmed appt. He is going to have GP find local podiatric medicine professor. Will give rx for diabetic shoes when he is in clinic next week. documented in this encounter Plan of Treatment Not on file documented as of this encounter Visit Diagnoses Not on filedocumented in this encounter Additional Health Concerns Infection Onset Date Last Indicated Resolved Time COVID-19 Rule-Out 11/08/2021 11/08/2021 11/08/2021 8:06 AM EDT documented as of this encounter Care Teams Microbiological Analyst Relationship Specialty Start Date End Date Edgar Fournier MD [address] [place] [address] PCP - General 12/25/20 Enrique Griffith MD [address] [place] [address] Referring Physician Nephrology 01/08/21 documented as of this encounter
--- OUTSIDE RECORDS SUMMARY | 2024-07-12 13:08 | XMS_ITS | Encounter Summary ---
Author Organization [facility] Address [address] [phone] Care Team Providers Care Probate Paralegal Name Role Phone Edgar Fournier MD Primary Care Provider [phone] Enrique Griffith MD Unavailable [phone] Encounter Details Date Type Department Care Team (Late st Contact Info) Description 02/22/2017 [facility] OTTR Encounter HISTORICAL OTTR [address] [place] [address] Bridgett Márquez, RN [facility] [id number] [address] [phone] Social History Tobacco Use Types Packs/Day Years Used Date Smoking Tobacco: Never Assessed Sex and Gender Information Value Date Recorded Sex Assigned at Not on file Legal Sex Male 6:10 PM EDT Gender Identity Not on file Sexual Orientation Straight 03/02/2021 10 :04 AM EDT documented as of this encounter Miscellaneous Notes * Progress Notes - Bridgett Márquez - 02/22/2017 11:23 AM EDT Rec'd ph call from patient. he adv he did not go to ED, but increasaed lactulose, as he feels ammonia level was elevated. Rescheduled appt for 7-14 at 0700. documented in this encounter Plan of Treatment Not on file documented as of this encounter Visit Diagnoses Not on filedocumented in this encounter Additional Health Concerns Infection Onset Date Last Indicated Resolved Time COVID-19 Rule-Out 11/08/2021 11/08/2021 11/08/2021 8:06 AM EDT documented as of this encounter Care Teams Probate Paralegal Relationship Specialty Start Date End Date Edgar Fournier MD [address] [place] [address] PCP - General 12/25/20 Enrique Griffith MD [address] [place] [address] Referring Physician Nephrology 01/08/21 documented as of this encounter
--- OUTSIDE RECORDS SUMMARY | 2024-07-12 13:08 | XMS_ITS | Encounter Summary ---
Author Organization [facility] Address [address] [place] [address] Care Team Providers Care Frozen Meat Cutter Name Role Phone Edgar Fournier MD Primary Care Provider [phone] Enrique Griffith MD Unavailable [phone] Encounter Details Date Type Department Care Team (Late st Contact Info) Description 05/30/2017 [facility] OTTR Encounter HISTORICAL OTTR [address] [place] [address] Carla Hammonds [facility] [address] [place] [address] Social History Tobacco Use Types Packs/Day Years Used Date Smoking Tobacco: Never Assessed Sex and Gender Information Value Date Recorded Sex Assigned at Not on file Legal Sex Male 6:10 PM EDT Gender Identity Not on file Sexual Orientation Straight 03/02/2021 10 :04 AM EDT documented as of this encounter Miscellaneous Notes * Progress Notes - Carla Hammonds - 05/30/2017 12:39 PM EDT Spoke with patient regarding moved labs/hep apt from 05/31 to 06/02 arriving at 9:15 for labs/hep. Patient stated he would have to check and call back becasue they have some things to do on Monday. Waiting for patient to check and return call. documented in this encounter Plan of Treatment Not on file documented as of this encounter Visit Diagnoses Not on filedocumented in this encounter Additional Health Concerns Infection Onset Date Last Indicated Resolved Time COVID-19 Rule-Out 11/08/2021 11/08/2021 11/08/2021 8:06 AM EDT documented as of this encounter Care Teams Frozen Meat Cutter Relationship Specialty Start Date End Date Edgar Fournier MD [address] [place] [address] PCP - General 12/25/20 Enrique Griffith MD [address] [place] [address] Referring Physician Nephrology 01/08/21 documented as of this encounter
--- OUTSIDE RECORDS SUMMARY | 2024-07-12 13:08 | XMS_ITS | Encounter Summary ---
Author Organization [facility] Address [address] [place] [address] Care Team Providers Care Provider Relations Advocate Name Role Phone Edgar Fournier MD Primary Care Provider [phone] Enrique Griffith MD Unavailable [phone] Encounter Details Date Type Department Care Team (Late st Contact Info) Description 04/13/2017 [facility] Encounter HISTORICAL OTTR [address] [place] [address] Shara Huff, DEVULCANIZER CHARGER, DNP [address] [facility] [address] [place] [address] Social History Tobacco Use Types Packs/Day Years Used Date Smoking Tobacco: Never Assessed Sex and Gender Information Value Date Recorded Sex Assigned at Not on file Legal Sex Male 6:10 PM EDT Gender Identity Not on file Sexual Orientation Straight 03/02/2021 10 :04 AM EDT documented as of this encounter Miscellaneous Notes * Progress Notes - Shara Huff - 04/13/2017 1:10 PM EDT Consult: 42 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 - US Abdomen Yuval/Art with patent hepatic vasculature with appropriate directional flow. Patent TIPS. Gradient in distal TIPS may indicate stenosis per radiology read. - Infectious workup: UA clean. Please obtain OSH blood cultures. Please repeat blood cultures here,needs paracentesis with fluid cell count, gram stain and culture if a pocket of ascites can be found. Recommend GI Comprehensive Panel, C. diff, CMV by PCR and Yury Salinas by PCR given N/V with abdominal pain. CARMEN - Crea elevated at 1.61, baseline 1.0-.1.2 Diabetes - HgB A1c 6.8%, with glucose of 401 on labs. - Recommend correction and scheduled insulin regimen for control. Protein malnutrition - Albumin 3.0 documented in this encounter Plan of Treatment Not on file documented as of this encounter Procedures Procedure Name Priority Date/Time Associated Diagnosis Comments OTTR LAB RESULTS (MANUAL) Routine 04/13/2017 5:53 AM EDT documented in this encounter Results * OTTR LAB RESULTS (MANUAL) (04/13/2017 5:53 AM EDT) External Estimated GFR 50.03 EXTERNAL LAB 04/13/2017 5:53 AM EDT Narrative EXTERNAL LAB - 04/13/2017 11:25 AM EDT Automated LAB Interface us Historical Provider LAB BLOOD ORDERABLES Yoselin robles Result EXTERNAL LAB documented in this encounter Visit Diagnoses Not on filedocumented in this encounter Additional Health Concerns Infection Onset Date Last Indicated Resolved Time COVID-19 Rule-Out 11/08/2021 11/08/2021 11/08/2021 8:06 AM EDT documented as of this encounter Care Teams Provider Relations Advocate Relationship Specialty Start Date End Date Edgar Fournier MD [facility] [place] [address] PCP - General 12/25/20 Enrique Griffith MD [address] [place] [address] Referring Physician Nephrology 01/08/21 documented as of this encounter
--- OUTSIDE RECORDS SUMMARY | 2024-07-12 13:08 | XMS_ITS | Encounter Summary ---
Author Organization [facility] Address [address] [place] [address] Care Team Providers Care Software Intern Name Role Phone Edgar Fournier MD Primary Care Provider [phone] Enrique Griffith MD Unavailable [phone] Encounter Details Date Type Department Care Team (Late st Contact Info) Description 12/21/2016 [facility] Encounter HISTORICAL OTTR [address] [place] [address] Shara Huff, KITCHEN WORKER, DNP [address] [facility] [address] [place] [address] Social History Tobacco Use Types Packs/Day Years Used Date Smoking Tobacco: Never Assessed Sex and Gender Information Value Date Recorded Sex Assigned at Not on file Legal Sex Male 6:10 PM EDT Gender Identity Not on file Sexual Orientation Straight 03/02/2021 10 :04 AM EDT documented as of this encounter Miscellaneous Notes * Progress Notes - Shara Huff - 12/21/2016 2:41 PM EDT consult F/U: Pt with stable HandH, Melena episode overnight. On PPI and octreotide gtt today. Plan for inpt EGD today with [facility]. documented in this encounter Plan of Treatment Not on file documented as of this encounter Visit Diagnoses Not on filedocumented in this encounter Additional Health Concerns Infection Onset Date Last Indicated Resolved Time COVID-19 Rule-Out 11/08/2021 11/08/2021 11/08/2021 8:06 AM EDT documented as of this encounter Care Teams Software Intern Relationship Specialty Start Date End Date Edgar Fournier MD [address] [place] [address] PCP - General 12/25/20 Enrique Griffith MD [address] [place] [address] Referring Physician Nephrology 01/08/21 documented as of this encounter
--- OUTSIDE RECORDS SUMMARY | 2024-07-12 13:08 | XMS_ITS | Encounter Summary ---
Author Organization [facility] Address [address] [place] [address] Care Team Providers Care Physical Meteorologist Name Role Phone Edgar Fournier MD Primary Care Provider [phone] Enrique Griffith MD Unavailable [phone] Encounter Details Date Type Department Care Team (Late st Contact Info) Description 05/30/2017 [facility] Encounter HISTORICAL OTTR [address] [place] [address] George November [facility] [address] [place] [address] Social History Tobacco Use Types Packs/Day Years Used Date Smoking Tobacco: Never Assessed Sex and Gender Information Value Date Recorded Sex Assigned at Not on file Legal Sex Male 6:10 PM EDT Gender Identity Not on file Sexual Orientation Straight 03/02/2021 10 :04 AM EDT documented as of this encounter Miscellaneous Notes * Progress Notes - George November - 05/30/2017 10:56 AM EDT Tried to return patient's call and phone not accepting calls, along with 's phone. Spoke with pt's mother who will try to contact patient's son. Patient's labs/hep will need to be r/s due to physician availability in clinic in the afternoon but patient still needs to come for f/u TIPS imaging. documented in this encounter Plan of Treatment Not on file documented as of this encounter Visit Diagnoses Not on filedocumented in this encounter Additional Health Concerns Infection Onset Date Last Indicated Resolved Time COVID-19 Rule-Out 11/08/2021 11/08/2021 11/08/2021 8:06 AM EDT documented as of this encounter Care Teams Physical Meteorologist Relationship Specialty Start Date End Date Edgar Fournier MD [address] [place] [address] PCP - General 12/25/20 Enrique Griffith MD [address] [place] [address] Referring Physician Nephrology 01/08/21 documented as of this encounter
--- OUTSIDE RECORDS SUMMARY | 2024-07-12 13:08 | XMS_ITS | Encounter Summary ---
Author Organization [facility] Address [address] [place] [address] Care Team Providers Care Commercial Artist Name Role Phone Edgar Fournier MD Primary Care Provider [phone] Enrique Griffith MD Unavailable [phone] Encounter Details Date Type Department Care Team (Late st Contact Info) Description 01/06/2017 [facility] Encounter HISTORICAL OTTR [address] [place] [address] Sandrita Ferguson, FOOD EQUIPMENT SERVICE TECHNICIAN [address] [facility] [address] [place] [address] Social History Tobacco Use Types Packs/Day Years Used Date Smoking Tobacco: Never Assessed Sex and Gender Information Value Date Recorded Sex Assigned at Not on file Legal Sex Male 6:10 PM EDT Gender Identity Not on file Sexual Orientation Straight 03/02/2021 10 :04 AM EDT documented as of this encounter Miscellaneous Notes * Progress Notes - Sandrita Ferguson - 01/06/2017 1:45 PM EDT HandH remain stable, on protonix and octreotide. No notes from Hepatology yet. Pt was thinking of leaving AMA due to questions about medications and believing he was not receiving the correct meds. Reviewed his meds with him, instructed on appropriate medications. He understanding what leaving AMA would mean regarding liver listing and states he will not leave. documented in this encounter Plan of Treatment Not on file documented as of this encounter Visit Diagnoses Not on filedocumented in this encounter Additional Health Concerns Infection Onset Date Last Indicated Resolved Time COVID-19 Rule-Out 11/08/2021 11/08/2021 11/08/2021 8:06 AM EDT documented as of this encounter Care Teams Commercial Artist Relationship Specialty Start Date End Date Edgar Fournier MD [address] [place] [address] PCP - General 12/25/20 Enrique Griffith MD [address] [place] [address] Referring Physician Nephrology 01/08/21 documented as of this encounter
--- OUTSIDE RECORDS SUMMARY | 2024-07-12 13:08 | XMS_ITS | Encounter Summary ---
Author Organization [facility] Address [address] [place] [address] Care Team Providers Care Welfare Interviewer Name Role Phone Edgar Fournier MD Primary Care Provider [phone] Enrique Griffith MD Unavailable [phone] Encounter Details Date Type Department Care Team (Late st Contact Info) Description 02/01/2017 [facility] Encounter HISTORICAL OTTR [address] [place] [address] Christa Knowles [place] [id number] Social History Tobacco Use Types Packs/Day Years Used Date Smoking Tobacco: Never Assessed Sex and Gender Information Value Date Recorded Sex Assigned at Not on file Legal Sex Male 6:10 PM EDT Gender Identity Not on file Sexual Orientation Straight 03/02/2021 10 :04 AM EDT documented as of this encounter Miscellaneous Notes * Progress Notes - Christa Knowles - 02/01/2017 1:08 PM EDT DOS 02/28/17 OP Cpt Colonoscopy 24823, NPR. Video Capsule EGD [id number] approved auth# [id number], expires 04/28/17 per November M. at [facility]. Nurse and Endo notified. documented in this encounter Plan of Treatment Not on file documented as of this encounter Procedures Procedure Name Priority Date/Time Associated Diagnosis Comments OTTR LAB RESULTS (MANUAL) Routine 02/01/2017 3:20 PM EDT documented in this encounter Results * OTTR LAB RESULTS (MANUAL) (02/01/2017 3:20 PM EDT) External WBC 2.8 k/uL EXTERNAL LAB External Hemoglobin (Hgb) 9.6 gm/dL EXTERNAL LAB External Hematocrit (Hct) 28.8 % EXTERNAL LAB External Platelet Count (Plt) 128 k/uL EXTERNAL LAB External Prothrombin Time (PT) 13.3 seconds EXTERNAL LAB External INR - Internormal Ratio 1.32 EXTERNAL LAB External Glucose 111 mg/dL EXTERNAL LAB External BUN 15 mg/dL EXTERNAL LAB External Creatinine Blood 1.2 mg/dL EXTERNAL LAB External Sodium (Na) 143 mmol/L EXTERNAL LAB External Potassium (K) 3.7 mmol/L EXTERNAL LAB External Chloride (Cl) 108 mmol/L EXTERNAL LAB External Carbon Dioxide (CO2) 26 mmol/L EXTERNAL LAB External Calcium (Ca) 8.5 mg/dL EXTERNAL LAB External AST (SGOT) 58 units/L EXTERNAL LAB External ALT (SGPT) 28 units/L EXTERNAL LAB External Alkaline Phosphatase 129 U/L EXTERNAL LAB External Bilirubin Total 5.1 mg/dL EXTERNAL LAB External Total Protein 6.4 g/dL EXTERNAL LAB External Albumin 2.6 g/dL EXTERNAL LAB External Estimated GFR 70.23 EXTERNAL LAB 02/01/2017 3:20 PM EDT Narrative EXTERNAL LAB - 02/01/2017 8:40 PM EDT [facility] us Historical Provider LAB BLOOD ORDERABLES Yoselin l Result EXTERNAL LAB documented in this encounter Visit Diagnoses Not on filedocumented in this encounter Additional Health Concerns Infection Onset Date Last Indicated Resolved Time COVID-19 Rule-Out 11/08/2021 11/08/2021 11/08/2021 8:06 AM EDT documented as of this encounter Care Teams Welfare Interviewer Relationship Specialty Start Date End Date Edgar Fournier MD [address] [place] [address] PCP - General 12/25/20 Enrique Griffith MD [address] [place] [address] Referring Physician Nephrology 01/08/21 documented as of this encounter
--- OUTSIDE RECORDS SUMMARY | 2024-07-12 13:08 | XMS_ITS | Encounter Summary ---
Author Organization [facility] Address [address] [id number] Care Team Providers Care Data Center Operator Name Role Phone Edgar Fournier MD Primary Care Provider [phone] Enrique Griffith MD Unavailable [phone] Encounter Details Date Type Department Care Team (Late st Contact Info) Description 02/22/2017 [facility] Encounter HISTORICAL OTTR [address] [place] [address] Bridgett Márquez, RN [facility] [id number] [address] [place] [address] Social History Tobacco Use Types Packs/Day Years Used Date Smoking Tobacco: Never Assessed Sex and Gender Information Value Date Recorded Sex Assigned at Not on file Legal Sex Male 6:10 PM EDT Gender Identity Not on file Sexual Orientation Straight 03/02/2021 10 :04 AM EDT documented as of this encounter Miscellaneous Notes * Progress Notes - Bridgett Márquez - 02/22/2017 8:10 AM EDT Patient canceled clinic appt yesterday, as he said he was going to have to go to the ED. No record of patient coming to . Phd patient- no answer. Phd [facility]- no record of patient. documented in this encounter Plan of Treatment Not on file documented as of this encounter Procedures Procedure Name Priority Date/Time Associated Diagnosis Comments OTTR LAB RESULTS (MANUAL) Routine 02/24/2017 7:16 AM EDT documented in this encounter Results * OTTR LAB RESULTS (MANUAL) (02/24/2017 7:16 AM EDT) External Estimated GFR 71.61 EXTERNAL LAB 02/24/2017 7:16 AM EDT Narrative EXTERNAL LAB - 02/24/2017 9:02 AM EDT Automated LAB Interface us Historical Provider LAB BLOOD ORDERABLES Yoselin robles Result EXTERNAL LAB documented in this encounter Visit Diagnoses Not on filedocumented in this encounter Additional Health Concerns Infection Onset Date Last Indicated Resolved Time COVID-19 Rule-Out 11/08/2021 11/08/2021 11/08/2021 8:06 AM EDT documented as of this encounter Care Teams Data Center Operator Relationship Specialty Start Date End Date Edgar Fournier MD [address] [place] [address] PCP - General 12/25/20 nErique Griffith MD [address] [place] [address] Referring Physician Nephrology 01/08/21 documented as of this encounter
--- OUTSIDE RECORDS SUMMARY | 2024-07-12 13:08 | XMS_ITS | Encounter Summary ---
Author Organization [facility] Address [address] [place] [id number] Care Team Providers Care Prison Officer Name Role Phone Edgar Fournier MD Primary Care Provider [phone] Enrique Griffith MD Unavailable [phone] Encounter Details Date Type Department Care Team (Late st Contact Info) Description 04/18/2017 [facility] OT[facility] Encounter HISTORICAL OTTR [address] [place] [address] Erika Truong, RN [facility] [id number] [address] [place] [address] Social History Tobacco Use Types Packs/Day Years Used Date Smoking Tobacco: Never Assessed Sex and Gender Information Value Date Recorded Sex Assigned at Not on file Legal Sex Male 6:10 PM EDT Gender Identity Not on file Sexual Orientation Straight 03/02/2021 10 :04 AM EDT documented as of this encounter Miscellaneous Notes * Progress Notes - Erika Truong - 04/18/2017 1:53 PM EDT orders in [facility] for TIPS revision - sedation form in OTTR all docs documented in this encounter Plan of Treatment Not on file documented as of this encounter Visit Diagnoses Not on filedocumented in this encounter Additional Health Concerns Infection Onset Date Last Indicated Resolved Time COVID-19 Rule-Out 11/08/2021 11/08/2021 11/08/2021 8:06 AM EDT documented as of this encounter Care Teams Prison Officer Relationship Specialty Start Date End Date Edgar Fournier MD [address] [place] [address] PCP - General 12/25/20 Enrique Griffith MD [address] [place] [address] Referring Physician Nephrology 01/08/21 documented as of this encounter
--- OUTSIDE RECORDS SUMMARY | 2024-07-12 13:08 | XMS_ITS | Encounter Summary ---
Author Organization [facility] Address [address] [place] [address] Care Team Providers Care Greenhouse Manager Name Role Phone Edgar Fournier MD Primary Care Provider [phone] Enrique Griffith MD Unavailable [phone] Encounter Details Date Type Department Care Team (Late st Contact Info) Description 12/22/2016 [facility] OT[facility] Encounter HISTORICAL OTTR [address] [place] [address] Sandrita Ferguson, SALVAGE CLERK [address] [facility] [address] [place] [address] Social History Tobacco Use Types Packs/Day Years Used Date Smoking Tobacco: Never Assessed Sex and Gender Information Value Date Recorded Sex Assigned at Not on file Legal Sex Male 6:10 PM EDT Gender Identity Not on file Sexual Orientation Straight 03/02/2021 10 :04 AM EDT documented as of this encounter Miscellaneous Notes * Progress Notes - Sandrita Ferguson - 12/22/2016 2:05 PM EDT Mr Stauffer is a 41 YO WM with Hx of SAL Cirrhosis and Gilbert's syndrome, MELD 20, here with c/o black tarry stools x 2 days. - Concern for GIB EGD 12/21 showed non-severe gastritis. Large amount of food residue in stomach. No gross lesions in duodenum. H/H stable No further episodes of melena - US abdomen Yuval/Art for eval of TIPS, appropriate flow. - Will remain active for liver transplant. Encourage healthy diet and activity to avoid physical debilitation. - To be discharged per primary team, please have patient follow up with Transplant Hepatology in 1-2 weeks. documented in this encounter Plan of Treatment Not on file documented as of this encounter Procedures Procedure Name Priority Date/Time Associated Diagnosis Comments OTTR LAB RESULTS (MANUAL) Routine 12/22/2016 6:17 AM EDT documented in this encounter Results * OTTR LAB RESULTS (MANUAL) (12/22/2016 6:17 AM EDT) External Estimated GFR 61.84 EXTERNAL LAB 12/22/2016 6:17 AM EDT Narrative EXTERNAL LAB - 12/22/2016 7:12 AM EDT Automated LAB Interface us Historical Provider LAB BLOOD ORDERABLES Yoselin robles Result EXTERNAL LAB documented in this encounter Visit Diagnoses Not on filedocumented in this encounter Additional Health Concerns Infection Onset Date Last Indicated Resolved Time COVID-19 Rule-Out 11/08/2021 11/08/2021 11/08/2021 8:06 AM EDT documented as of this encounter Care Teams Greenhouse Manager Relationship Specialty Start Date End Date Edgar Fournier MD [address] [place] [address] PCP - General 12/25/20 Enrique Griffith MD [address] [place] [address] Referring Physician Nephrology 01/08/21 documented as of this encounter
--- OUTSIDE RECORDS SUMMARY | 2024-07-12 13:08 | XMS_ITS | Encounter Summary ---
Author Organization [facility] Address [address] [place] [address] Care Team Providers Care Mica Layer Name Role Phone Edgar Fournier MD Primary Care Provider [phone] Enrique Griffith MD Unavailable [phone] Encounter Details Date Type Department Care Team (Late st Contact Info) Description 04/14/2017 [facility] OT[facility] Encounter HISTORICAL OTTR [address] [place] [address] Fabiana Clark MD Social History Tobacco Use Types Packs/Day Years Used Date Smoking Tobacco: Never Assessed Sex and Gender Information Value Date Recorded Sex Assigned at Not on file Legal Sex Male 6:10 PM EDT Gender Identity Not on file Sexual Orientation Straight 03/02/2021 10 :04 AM EDT documented as of this encounter Miscellaneous Notes * Progress Notes - Fabiana Clark - 04/14/2017 3:44 PM EDT Pt was admitted due to acute worsening of his chronic abdominal pain. US abdomen with Dopplers donewhile in patient, with stenosis of TIPS noticed. Pt will need outpatient IR TIPS revision. documented in this encounter Plan of Treatment Not on file documented as of this encounter Procedures Procedure Name Priority Date/Time Associated Diagnosis Comments OTTR LAB RESULTS (MANUAL) Routine 04/14/2017 12:39 PM EDT documented in this encounter Results * OTTR LAB RESULTS (MANUAL) (04/14/2017 12:39 PM EDT) External Estimated GFR 65.79 EXTERNAL LAB 04/14/2017 12:3 9 PM EDT Narrative EXTERNAL LAB - 04/14/2017 1:53 PM EDT Automated LAB Interface us Historical Provider LAB BLOOD ORDERABLES Yoselin robles Result EXTERNAL LAB documented in this encounter Visit Diagnoses Not on filedocumented in this encounter Additional Health Concerns Infection Onset Date Last Indicated Resolved Time COVID-19 Rule-Out 11/08/2021 11/08/2021 11/08/2021 8:06 AM EDT documented as of this encounter Care Teams Mica Layer Relationship Specialty Start Date End Date Edgar Fournier MD [address] [place] [address] PCP - General 12/25/20 Enrique Griffith MD [address] [place] [phone] Referring Physician Nephrology 01/08/21 documented as of this encounter
--- OUTSIDE RECORDS SUMMARY | 2024-07-12 13:08 | XMS_ITS | Encounter Summary ---
Author Organization [facility] Address [address] [place] [id number] Care Team Providers Care Fast Food Worker Name Role Phone Edgar Fournier MD Primary Care Provider [phone] Enrique Griffith MD Unavailable [phone] Encounter Details Date Type Department Care Team (Late st Contact Info) Description 12/16/2016 [facility] OT[facility] Encounter HISTORICAL OTTR [address] [place] [address] Bridgett Márquez, RN [facility] [id number] [address] [place] [id number] Social History Tobacco Use Types Packs/Day Years Used Date Smoking Tobacco: Never Assessed Sex and Gender Information Value Date Recorded Sex Assigned at Not on file Legal Sex Male 6:10 PM EDT Gender Identity Not on file Sexual Orientation Straight 03/02/2021 10 :04 AM EDT documented as of this encounter Miscellaneous Notes * Progress Notes - Bridgett Márquez - 12/16/2016 2:29 PM EDT Reviewed with AYG. She would like for patient to have 50gm Albumin (25%) infused outpatient, and then have patient repeat labs next week. Phd [facility]- they will call me to schedule. documented in this encounter Plan of Treatment Not on file documented as of this encounter Visit Diagnoses Not on filedocumented in this encounter Additional Health Concerns Infection Onset Date Last Indicated Resolved Time COVID-19 Rule-Out 11/08/2021 11/08/2021 11/08/2021 8:06 AM EDT documented as of this encounter Care Teams Fast Food Worker Relationship Specialty Start Date End Date Edgar Fournier MD [address] [place] [address] PCP - General 12/25/20 Enrique Griffith MD [address] [place] [phone] Referring Physician Nephrology 01/08/21 documented as of this encounter
--- OUTSIDE RECORDS SUMMARY | 2024-07-12 13:08 | XMS_ITS | Encounter Summary ---
Author Organization [facility] Address [address] [place] [id number] Care Team Providers Care Dietetic Aide Name Role Phone Edgar Fournier MD Primary Care Provider [phone] Enrique Griffith MD Unavailable [phone] Encounter Details Date Type Department Care Team (Late st Contact Info) Description 05/17/2017 [facility] OT[facility] Encounter HISTORICAL OTTR [address] [place] [address] Bridgett Márquez, RN [facility] [id number] [address] [place] [phone] Social History Tobacco Use Types Packs/Day Years Used Date Smoking Tobacco: Never Assessed Sex and Gender Information Value Date Recorded Sex Assigned at Not on file Legal Sex Male 6:10 PM EDT Gender Identity Not on file Sexual Orientation Straight 03/02/2021 10 :04 AM EDT documented as of this encounter Miscellaneous Notes * Progress Notes - Bridgett Márquez - 05/17/2017 2:05 PM EDT Rec'd ph call from patient. He will get updated labs today. documented in this encounter Plan of Treatment Not on file documented as of this encounter Visit Diagnoses Not on filedocumented in this encounter Additional Health Concerns Infection Onset Date Last Indicated Resolved Time COVID-19 Rule-Out 11/08/2021 11/08/2021 11/08/2021 8:06 AM EDT documented as of this encounter Care Teams Dietetic Aide Relationship Specialty Start Date End Date Edgar Fournier MD [address] [place] [address] PCP - General 12/25/20 Enrique Griffith MD [address] [place] [address] Referring Physician Nephrology 01/08/21 documented as of this encounter
--- OUTSIDE RECORDS SUMMARY | 2024-07-12 13:08 | XMS_ITS | Encounter Summary ---
Author Organization [facility] Address [address] [id number] Care Team Providers Care Master Machinist Name Role Phone Edgar Fournier MD Primary Care Provider [phone] Enrique Griffith MD Unavailable [phone] Encounter Details Date Type Department Care Team (Late st Contact Info) Description 05/19/2017 [facility] Encounter HISTORICAL OTTR [address] [place] [address] Bridgett Márquez, RN [facility] [id number] [address] [id number] Social History Tobacco Use Types Packs/Day Years Used Date Smoking Tobacco: Never Assessed Sex and Gender Information Value Date Recorded Sex Assigned at Not on file Legal Sex Male 6:10 PM EDT Gender Identity Not on file Sexual Orientation Straight 03/02/2021 10 :04 AM EDT documented as of this encounter Miscellaneous Notes * Progress Notes - Bridgett Márquez - 05/19/2017 7:30 AM EDT MELD score updated to 17 documented in this encounter Plan of Treatment Not on file documented as of this encounter Procedures Procedure Name Priority Date/Time Associated Diagnosis Comments OTTR LAB RESULTS (MANUAL) Routine 05/18/2017 2:15 PM EDT documented in this encounter Results * OTTR LAB RESULTS (MANUAL) (05/18/2017 2:15 PM EDT) External WBC 2.5 k/uL EXTERNAL LAB External Hemoglobin (Hgb) 10.4 gm/dL EXTERNAL LAB External Hematocrit (Hct) 29.1 % EXTERNAL LAB External Platelet Count (Plt) 120 k/uL EXTERNAL LAB External Prothrombin Time (PT) 12.4 seconds EXTERNAL LAB External INR - Internormal Ratio 1.24 EXTERNAL LAB External Glucose 292 mg/dL EXTERNAL LAB External BUN 22 mg/dL EXTERNAL LAB External Creatinine Blood 1.3 mg/dL EXTERNAL LAB External Sodium (Na) 139 mmol/L EXTERNAL LAB External Potassium (K) 4.3 mmol/L EXTERNAL LAB External Chloride (Cl) 106 mmol/L EXTERNAL LAB External Carbon Dioxide (CO2) 24 mmol/L EXTERNAL LAB External Calcium (Ca) 9.5 mg/dL EXTERNAL LAB External AST (SGOT) 59 units/L EXTERNAL LAB External ALT (SGPT) 31 units/L EXTERNAL LAB External Alkaline Phosphatase 134 U/L EXTERNAL LAB External Bilirubin Total 5.3 mg/dL EXTERNAL LAB External Total Protein 5.3 g/dL EXTERNAL LAB External Albumin 2.7 g/dL EXTERNAL LAB External Estimated GFR 64.04 EXTERNAL LAB 05/18/2017 2:15 PM EDT Narrative EXTERNAL LAB - 05/19/2017 7:26 AM EDT [facility] us Historical Provider LAB BLOOD ORDERABLES Yoselin l Result EXTERNAL LAB documented in this encounter Visit Diagnoses Not on filedocumented in this encounter Additional Health Concerns Infection Onset Date Last Indicated Resolved Time COVID-19 Rule-Out 11/08/2021 11/08/2021 11/08/2021 8:06 AM EDT documented as of this encounter Care Teams Master Machinist Relationship Specialty Start Date End Date Edgar Fournier MD [address] [place] [address] PCP - General 12/25/20 Enrique Griffith MD [address] [place] [address] Referring Physician Nephrology 01/08/21 documented as of this encounter
--- OUTSIDE RECORDS SUMMARY | 2024-07-12 13:08 | XMS_ITS | Encounter Summary ---
Author Organization [facility] Address [address] [id number] Care Team Providers Care Buckle Sorter Name Role Phone Edgar Fournier MD Primary Care Provider [phone] Enrique Griffith MD Unavailable [phone] Encounter Details Date Type Department Care Team (Late st Contact Info) Description 03/23/2017 [facility] Encounter HISTORICAL OTTR [address] [place] [address] Bridgett Márquez, RN [facility] [id number] [address] [id number] Social History Tobacco Use Types Packs/Day Years Used Date Smoking Tobacco: Never Assessed Sex and Gender Information Value Date Recorded Sex Assigned at Not on file Legal Sex Male 6:10 PM EDT Gender Identity Not on file Sexual Orientation Straight 03/02/2021 10 :04 AM EDT documented as of this encounter Miscellaneous Notes * Progress Notes - Bridgett Márquez - 03/23/2017 1:53 PM EDT Rec'd updated labs for patient. MELD score updated to 22. Cr increased to 1.5. WIll have provider review documented in this encounter Plan of Treatment Not on file documented as of this encounter Procedures Procedure Name Priority Date/Time Associated Diagnosis Comments OTTR LAB RESULTS (MANUAL) Routine 03/22/2017 12:48 PM EDT documented in this encounter Results * OTTR LAB RESULTS (MANUAL) (03/22/2017 12:48 PM EDT) External WBC 3.2 k/uL EXTERNAL LAB External Hemoglobin (Hgb) 10.4 gm/dL EXTERNAL LAB External Hematocrit (Hct) 33.1 % EXTERNAL LAB External Platelet Count (Plt) 130 k/uL EXTERNAL LAB External Prothrombin Time (PT) 18.7 seconds EXTERNAL LAB External INR - Internormal Ratio 1.6 EXTERNAL LAB External Glucose 159 mg/dL EXTERNAL LAB External BUN 17 mg/dL EXTERNAL LAB External Creatinine Blood 1.5 mg/dL EXTERNAL LAB External Sodium (Na) 144 mmol/L EXTERNAL LAB External Potassium (K) 4.4 mmol/L EXTERNAL LAB External Chloride (Cl) 110 mmol/L EXTERNAL LAB External Carbon Dioxide (CO2) 17 mmol/L EXTERNAL LAB External Calcium (Ca) 9.4 mg/dL EXTERNAL LAB External AST (SGOT) 52 units/L EXTERNAL LAB External ALT (SGPT) 22 units/L EXTERNAL LAB External Alkaline Phosphatase 116 U/L EXTERNAL LAB External Bilirubin Total 5.9 mg/dL EXTERNAL LAB External Total Protein 6.3 g/dL EXTERNAL LAB External Albumin 3.1 g/dL EXTERNAL LAB External Estimated GFR 54.29 EXTERNAL LAB 03/22/2017 12:4 8 PM EDT Narrative EXTERNAL LAB - 03/23/2017 1:43 PM EDT [facility] us Historical Provider LAB BLOOD ORDERABLES Yoselin l Result EXTERNAL LAB documented in this encounter Visit Diagnoses Not on filedocumented in this encounter Additional Health Concerns Infection Onset Date Last Indicated Resolved Time COVID-19 Rule-Out 11/08/2021 11/08/2021 11/08/2021 8:06 AM EDT documented as of this encounter Care Teams Buckle Sorter Relationship Specialty Start Date End Date Edgar Fournier MD [address] [place] [address] PCP - General 12/25/20 Enrique Griffith MD [address] [place] [id number] Referring Physician Nephrology 01/08/21 documented as of this encounter
--- OUTSIDE RECORDS SUMMARY | 2024-07-12 13:08 | XMS_ITS | Encounter Summary ---
Author Organization [facility] Address [address] [id number] Care Team Providers Care Order Processing Specialist Name Role Phone Edgar Fournier MD Primary Care Provider [phone] Enrique Griffith MD Unavailable [phone] Encounter Details Date Type Department Care Team (Late st Contact Info) Description 12/27/2016 [facility] Encounter HISTORICAL OTTR [address] [place] [address] Bridgett Márquez, RN [facility] [id number] [address] [phone] Social History Tobacco Use Types Packs/Day Years Used Date Smoking Tobacco: Never Assessed Sex and Gender Information Value Date Recorded Sex Assigned at Not on file Legal Sex Male 6:10 PM EDT Gender Identity Not on file Sexual Orientation Straight 03/02/2021 10 :04 AM EDT documented as of this encounter Miscellaneous Notes * Progress Notes - Bridgett Márquez - 12/27/2016 1:55 PM EDT Patient to RTC 17 at 7am. documented in this encounter Plan of Treatment Not on file documented as of this encounter Visit Diagnoses Not on filedocumented in this encounter Additional Health Concerns Infection Onset Date Last Indicated Resolved Time COVID-19 Rule-Out 11/08/2021 11/08/2021 11/08/2021 8:06 AM EDT documented as of this encounter Care Teams Order Processing Specialist Relationship Specialty Start Date End Date Edgar Fournier MD [address] [place] [address] PCP - General 12/25/20 Enrique Griffith MD [address] [place] [address] Referring Physician Nephrology 01/08/21 documented as of this encounter
--- OUTSIDE RECORDS SUMMARY | 2024-07-12 13:08 | XMS_ITS | Encounter Summary ---
Author Organization [facility] Address [address] [phone] Care Team Providers Care Automatic Nailing Machine Feeder Name Role Phone Edgar Fournier MD Primary Care Provider [phone] Enrique Griffith MD Unavailable [phone] Encounter Details Date Type Department Care Team (Late st Contact Info) Description 12/19/2016 [facility] OT[facility] Encounter HISTORICAL OTTR [address] [place] [address] Bridgett Márquez, RN [facility] [id number] [address] [phone] Social History Tobacco Use Types Packs/Day Years Used Date Smoking Tobacco: Never Assessed Sex and Gender Information Value Date Recorded Sex Assigned at Not on file Legal Sex Male 6:10 PM EDT Gender Identity Not on file Sexual Orientation Straight 03/02/2021 10 :04 AM EDT documented as of this encounter Miscellaneous Notes * Progress Notes - Bridgett Márquez - 12/19/2016 7:17 AM EDT Patient admited to with abdominal pain and acute GI bleed. Listed with MELD of 20. Patient was scheduled for have 50gm of IV Albumin 25% infused today, but will miss appt. documented in this encounter Plan of Treatment Not on file documented as of this encounter Procedures Procedure Name Priority Date/Time Associated Diagnosis Comments OTTR LAB RESULTS (MANUAL) Routine 12/19/2016 4:22 AM EDT OTTR LAB RESULTS (MANUAL) Routine 12/18/2016 12:13 AM EDT documented in this encounter Results * OTTR LAB RESULTS (MANUAL) (12/19/2016 4:22 AM EDT) External Estimated GFR 61.84 EXTERNAL LAB 12/19/2016 4:22 AM EDT Narrative EXTERNAL LAB - 12/19/2016 5:13 AM EDT Automated LAB Interface Historical Provider MD LAB BLOOD ORDERABLES Yoselin l Result Performing Organization Address [facility] de Phone Number EXTERNAL LAB * OTTR LAB RESULTS (MANUAL) (12/18/2016 12:13 AM EDT) External Estimated GFR 83.77 EXTERNAL LAB 12/18/2016 12:1 3 AM EDT Narrative EXTERNAL LAB - 12/18/2016 1:04 AM EDT Automated LAB Interface Historical Provider MD LAB BLOOD ORDERABLES Yoselin l Result Performing Organization Address [facility] de Phone Number EXTERNAL LAB documented in this encounter Visit Diagnoses Not on filedocumented in this encounter Additional Health Concerns Infection Onset Date Last Indicated Resolved Time COVID-19 Rule-Out 11/08/2021 11/08/2021 11/08/2021 8:06 AM EDT documented as of this encounter Care Teams Automatic Nailing Machine Feeder Relationship Specialty Start Date End Date Edgar Fournier MD [address] [place] [address] PCP - General 12/25/20 Enrique Griffith MD [address] [place] [phone] Referring Physician Nephrology 01/08/21 documented as of this encounter
--- OUTSIDE RECORDS SUMMARY | 2024-07-12 13:09 | XMS_ITS | Encounter Summary ---
Author Organization [facility] Address [address] [place] [address] Care Team Providers Care Gas Pumper Name Role Phone Edgar Fournier MD Primary Care Provider [phone] Enrique Griffith MD Unavailable [phone] Encounter Details Date Type Department Care Team (Late st Contact Info) Description 09/14/2016 [facility] OT[facility] Encounter HISTORICAL OTTR [address] [place] [address] [address] [phone] Social History Tobacco Use Types Packs/Day Years Used Date Smoking Tobacco: Never Assessed Sex and Gender Information Value Date Recorded Sex Assigned at Not on file Legal Sex Male 6:10 PM EDT Gender Identity Not on file Sexual Orientation Straight 03/02/2021 10 :04 AM EDT documented as of this encounter Miscellaneous Notes * Progress Notes - Vera Rosales - 09/14/2016 3:13 PM EST [facility] radiology called - Mr Stauffer had his cxr - buth they need a new order, the old one indicates to rule out pneumonia . jakob Peters documented in this encounter Plan of Treatment Not on file documented as of this encounter Procedures Procedure Name Priority Date/Time Associated Diagnosis Comments OTTR LAB RESULTS (MANUAL) Routine 09/14/2016 7:08 AM EST documented in this encounter Results * OTTR LAB RESULTS (MANUAL) (09/14/2016 7:08 AM EST) External Estimated GFR 79.31 EXTERNAL LAB 09/14/2016 7:08 AM EST Narrative EXTERNAL LAB - 09/14/2016 8:22 AM EST Automated LAB Interface us Historical Provider LAB BLOOD ORDERABLES Yoselin robles Result EXTERNAL LAB documented in this encounter Visit Diagnoses Not on filedocumented in this encounter Additional Health Concerns Infection Onset Date Last Indicated Resolved Time COVID-19 Rule-Out 11/08/2021 11/08/2021 11/08/2021 8:06 AM EDT documented as of this encounter Care Teams Gas Pumper Relationship Specialty Start Date End Date Edgar Fournier MD [address] [place] [address] PCP - General 12/25/20 Enrique Griffith MD [address] [place] [address] Referring Physician Nephrology 01/08/21 documented as of this encounter
--- OUTSIDE RECORDS SUMMARY | 2024-07-12 13:09 | XMS_ITS | Encounter Summary ---
Author Organization [facility] Address [address] [place] [address] Care Team Providers Care Correctional Manager Name Role Phone Edgar Fournier MD Primary Care Provider [phone] Enrique Griffith MD Unavailable [phone] Encounter Details Date Type Department Care Team (Late st Contact Info) Description 09/14/2016 [facility] Committee HISTORICAL OTTR [address] [place] [address] ProviderAmrit MD [address] [place] [address] Social History Tobacco Use Types Packs/Day Years Used Date Smoking Tobacco: Never Assessed Sex and Gender Information Value Date Recorded Sex Assigned at Not on file Legal Sex Male 6:10 PM EDT Gender Identity Not on file Sexual Orientation Straight 03/02/2021 10 :04 AM EDT documented as of this encounter Miscellaneous Notes * Progress Notes - ProviderAmrit MD - 09/14/2016 12:44 PM EST 41-year-old male with a history of KIM-induced liver cirrhosis, Gilbert's syndrome came in for follow up appointment. He was last seen in 07/20/16: Listed for liver transplant. MELD NA 19 today. Plan: Drop in HandH: Hb 11 to 9.2, pt denies any complaints and hemodynamically stable.Last EGD in 07/2015 showed grade III esophageal varices on coreg, Advised to get repeat EGD NIELS, though patient wantsthe Hb to be monitored as he don't have symptoms. Please follow Repeat CBC in 2 days, if drops further, needs endoscopic interventions. HCC surveillance:MRI Abdomen-04/2016-no HCC. Repeat imaging in 10/2016. Nausea, dysuria cough: Pt completed levaquin course for UTI and pneumonia recently last week. Repeat UA negative. Will get CXR. Prescribed reglan as zofran is not working for him. RTC in 6 weeks. * Progress Notes - Erika Truong - 06/27/2016 2:08 PM EST ok to list * Progress Notes - Jack Ansari - 06/27/2016 1:08 PM EST Jun 16: MELD 21, not yet listed, [facility] and proceed with listing if insurance concerns resolved. Recent hospitalizations with acute exacerbation of HE. Patient thought he had UTI based on same symptoms he previously experienced, but says he was told in the hospital could be pneumonia. He says he has productive cough with shortness of breath. Afebrile. He reports urinary hesitancy, and some dyuria. CXR done here May was negative for pneumonia. I asked him to stop Flexeril and Xanaflex for now. Rx for Levaquin 500mg daily for 7 days. Added lasix 20mg once daily and spironolactone 50mg once daily for ascites today. May be related to allt he IV fluids he got while in the hospital. RTC in 2 weeks for close followup. * Progress Notes - ProviderAmrit MD - 06/01/2016 10:31 AM EDT 41-year-old male with a history of KIM-induced liver cirrhosis, Gilbert's syndrome came in for follow up appointment. He was admitted in April for rapid evaluation. Undergoing liver transplant eval- not listed yet pending Hepatology/Endocrinology/colonoscopy. MELD NA 17 today. Plan: Need to schedule for colonoscopy. Cardiac testing reviewed- TTE- LVEF 55%, IPS, PAP 22, stress normal. PFTs normal, ABG not done- please obtain ABG. hepatic encephalopathy:Will start ZnSO4 220 mg BID. Will increase Carvedilol to 25/12.5 to titrate HR 60-70. He says he had EGD this year at [facility]- please obtain reports. Splenic aneurysm: 2.8 cm on recent MRI- will follow up on imaging. DM-2:Has seen Sprinkler Installer at yesterday- insulin is adjusted, need better control Osteopenia: On BMD, vitamin D 21, started vit D 50,000 IU/week for 8 weeks RTC in 2 months. * Progress Notes - Malou Gonzalez - 05/16/2016 2:36 PM EDT MRI no HCC. Routine imagining * Progress Notes - Antione Romano - 04/22/2016 2:51 PM EDT 04/22 ICE. 41-year-old male, who was accompanied today by his , with a history of Kim-induced liver cirrhosis that was diagnosed 4 years ago. Patient was initially seen at our liver transplant clinic in 2013 for a evaluation, but at that time his MELD score was low and he was referred to the [facility]. He has been followed by Dr. Friedman at the [facility]; he is now re-referred to us as his MELD score has elevated and he is showing signs of decompensated liver disease. He was also diagnosed with Gilbert's syndrome at his last visit at the [facility] in December 2015. Now with recurrent episodes of hepatic encephalopathy requiring frequent hospitalizations, ascites, esophageal varices. -Meld score of 18 today. This patient appears to be an appropriate candidate to be considered for transplant evaluation. We will start with a rapid inpatient liver transplant evaluation -Patient will have a CT abdomen today, will follow results. He will also have an AFP drawn today. -Patient was counseled on weight loss documented in this encounter Plan of Treatment Not on file documented as of this encounter Visit Diagnoses Not on filedocumented in this encounter Additional Health Concerns Infection Onset Date Last Indicated Resolved Time COVID-19 Rule-Out 11/08/2021 11/08/2021 11/08/2021 8:06 AM EDT documented as of this encounter Care Teams Correctional Manager Relationship Specialty Start Date End Date Edgar Fournier MD [address] [place] [address] PCP - General 12/25/20 Enrique Griffith MD [address] [place] [address] Referring Physician Nephrology 01/08/21 documented as of this encounter
--- OUTSIDE RECORDS SUMMARY | 2024-07-12 13:09 | XMS_ITS | Encounter Summary ---
Author Organization [facility] Address [address] [phone] Care Team Providers Care Store Administrator Name Role Phone Edgar Fournier MD Primary Care Provider [phone] Enrique Griffith MD Unavailable [phone] Encounter Details Date Type Department Care Team (Late st Contact Info) Description 09/19/2016 [facility] OTTR Encounter HISTORICAL OTTR [address] [place] [address] Bridgett Márquez, RN [facility] [id number] [address] [phone] Social History Tobacco Use Types Packs/Day Years Used Date Smoking Tobacco: Never Assessed Sex and Gender Information Value Date Recorded Sex Assigned at Not on file Legal Sex Male 6:10 PM EDT Gender Identity Not on file Sexual Orientation Straight 03/02/2021 10 :04 AM EDT documented as of this encounter Miscellaneous Notes * Progress Notes - Bridgett Márquez - 09/19/2016 12:20 PM EST Rec'd ph call from patient. He adv he is inpatient again at [facility]. He is trying to see if they will transfer him to . Will obtain a copy of most recent labs. documented in this encounter Plan of Treatment Not on file documented as of this encounter Procedures Procedure Name Priority Date/Time Associated Diagnosis Comments OTTR LAB RESULTS (MANUAL) Routine 09/19/2016 5:28 AM EST OTTR LAB RESULTS (MANUAL) Routine 09/18/2016 2:15 PM EST documented in this encounter Results * OTTR LAB RESULTS (MANUAL) (09/19/2016 5:28 AM EST) External WBC 2.8 k/uL EXTERNAL LAB External Hemoglobin (Hgb) 9.7 gm/dL EXTERNAL LAB External Hematocrit (Hct) 28.3 % EXTERNAL LAB External Platelet Count (Plt) 110 k/uL EXTERNAL LAB External Glucose 417 mg/dL EXTERNAL LAB External BUN 9 mg/dL EXTERNAL LAB External Creatinine Blood 1.3 mg/dL EXTERNAL LAB External Sodium (Na) 139 mmol/L EXTERNAL LAB External Potassium (K) 4.0 mmol/L EXTERNAL LAB External Chloride (Cl) 106 mmol/L EXTERNAL LAB External Carbon Dioxide (CO2) 26 mmol/L EXTERNAL LAB External Calcium (Ca) 10.4 mg/dL EXTERNAL LAB External AST (SGOT) 68 units/L EXTERNAL LAB External ALT (SGPT) 43 units/L EXTERNAL LAB External Alkaline Phosphatase 125 U/L EXTERNAL LAB External Bilirubin Total 5.9 mg/dL EXTERNAL LAB External Total Protein 6.4 g/dL EXTERNAL LAB External Albumin 2.0 g/dL EXTERNAL LAB External Estimated GFR 64.04 EXTERNAL LAB 09/19/2016 5:28 AM EST Narrative EXTERNAL LAB - 09/19/2016 12:49 PM EST [facility] us Historical Provider LAB BLOOD ORDERABLES Yoselin robles Result EXTERNAL LAB * OTTR LAB RESULTS (MANUAL) (09/18/2016 2:15 PM EST) External WBC 3.4 k/uL EXTERNAL LAB External Hemoglobin (Hgb) 2.73 gm/dL EXTERNAL LAB External Hematocrit (Hct) 10.5 % EXTERNAL LAB External Platelet Count (Plt) 123 k/uL EXTERNAL LAB External Glucose 302 mg/dL EXTERNAL LAB External BUN 11 mg/dL EXTERNAL LAB External Creatinine Blood 1.3 mg/dL EXTERNAL LAB External Sodium (Na) 142 mmol/L EXTERNAL LAB External Potassium (K) 3.7 mmol/L EXTERNAL LAB External Chloride (Cl) 104 mmol/L EXTERNAL LAB External Carbon Dioxide (CO2) 26 mmol/L EXTERNAL LAB External Calcium (Ca) 9.8 mg/dL EXTERNAL LAB External AST (SGOT) 69 units/L EXTERNAL LAB External ALT (SGPT) 47 units/L EXTERNAL LAB External Alkaline Phosphatase 129 U/L EXTERNAL LAB External Bilirubin Total 6.1 mg/dL EXTERNAL LAB External Total Protein 7.0 g/dL EXTERNAL LAB External Albumin 2.4 g/dL EXTERNAL LAB External Estimated GFR 64.04 EXTERNAL LAB 09/18/2016 2:15 PM EST [facility] EXTERNAL LAB - 09/19/2016 12:48 PM EST [facility] us Historical Provider LAB BLOOD ORDERABLES Yoselin l Result EXTERNAL LAB documented in this encounter Visit Diagnoses Not on filedocumented in this encounter Additional Health Concerns Infection Onset Date Last Indicated Resolved Time COVID-19 Rule-Out 11/08/2021 11/08/2021 11/08/2021 8:06 AM EDT documented as of this encounter Care Teams Store Administrator Relationship Specialty Start Date End Date Edgar Fournier MD [address] [place] [address] PCP - General 12/25/20 Enrique Griffith MD [address] [place] [address] Referring Physician Nephrology 01/08/21 documented as of this encounter
--- OUTSIDE RECORDS SUMMARY | 2024-07-12 13:09 | XMS_ITS | Encounter Summary ---
Author Organization [facility] Address [address] [place] [address] Care Team Providers Care Entertainment Director Name Role Phone Edgar Fournier MD Primary Care Provider Enrique Griffith MD Unavailable [phone] Encounter Details Date Type Department Care Team (Late st Contact Info) Description 11/08/2016 [facility] Encounter HISTORICAL OTTR [address] [place] [address] Maren Friedman MD [address] [facility] [address] [place] [address] Social History Tobacco Use Types Packs/Day Years Used Date Smoking Tobacco: Never Assessed Sex and Gender Information Value Date Recorded Sex Assigned at Not on file Legal Sex Male 6:10 PM EDT Gender Identity Not on file Sexual Orientation Straight 03/02/2021 10 :04 AM EDT documented as of this encounter Miscellaneous Notes * Progress Notes - Maren Friedman - 11/08/2016 9:35 AM EDT 41-year-old male with a history of SAL-induced liver cirrhosis, Gilbert's syndrome came in for follow up appointment. MELD NA 18 today. Recent hospitalization for upper GI bleed, large esophageal varices seen, status post TIPS on 10/18/16 History of frequent hepatic encephalopathy prior to TIPS, did not increase after TIPS insertion, takes lactulose and rifaximin Ultrasound Doppler prior to discharge suggested possible developing stenosis of the TIPS History of lower extremity edema, no ascites, currently on Lasix 40 mg and spironolactone 50 mg. Normal kidney function, potassium 3.3 Last contrast-enhanced abdominal imaging abdominal imaging MRI in April 2016 Plan: Obtain report CT of the abdomen done in [facility] Continue carvedilol, history of hypertension, blood pressure 142/83 today Decrease Lasix to 20 mg, continue spironolactone at 50 mg, patient lost 24 pounds since discharge Schedule Doppler ultrasound of the liver Return in 4 weeks documented in this encounter Plan of Treatment Not on file documented as of this encounter Procedures Procedure Name Priority Date/Time Associated Diagnosis Comments OTTR LAB RESULTS (MANUAL) Routine 11/08/2016 7:38 AM EDT documented in this encounter Results * OTTR LAB RESULTS (MANUAL) (11/08/2016 7:38 AM EDT) External Estimated GFR 85.69 EXTERNAL LAB 11/08/2016 7:38 AM EDT Narrative EXTERNAL LAB - 11/08/2016 8:37 AM EDT Automated LAB Interface us Historical Provider LAB BLOOD ORDERABLES Yoselin robles Result EXTERNAL LAB documented in this encounter Visit Diagnoses Not on filedocumented in this encounter Additional Health Concerns Infection Onset Date Last Indicated Resolved Time COVID-19 Rule-Out 11/08/2021 11/08/2021 11/08/2021 8:06 AM EDT documented as of this encounter Care Teams Entertainment Director Relationship Specialty Start Date End Date Edgar Fournier MD [address] [place] [address] PCP - General 12/25/20 Enrique Griffith MD [address] [place] [address] Referring Physician Nephrology 01/08/21 documented as of this encounter
--- OUTSIDE RECORDS SUMMARY | 2024-07-12 13:09 | XMS_ITS | Encounter Summary ---
Author Organization [facility] Address [address] [place] [address] Care Team Providers Care Community Development Director Name Role Phone Edgar Fournier MD Primary Care Provider [phone] Enrique Griffith MD Unavailable [phone] Encounter Details Date Type Department Care Team (Late st Contact Info) Description 11/16/2016 [facility] Encounter HISTORICAL OTTR [address] [place] [address] George Roxi Harish [facility] [address] [place] [address] Social History Tobacco Use Types Packs/Day Years Used Date Smoking Tobacco: Never Assessed Sex and Gender Information Value Date Recorded Sex Assigned at Not on file Legal Sex Male 6:10 PM EDT Gender Identity Not on file Sexual Orientation Straight 03/02/2021 10 :04 AM EDT documented as of this encounter Miscellaneous Notes * Progress Notes - George November - 11/16/2016 10:49 AM EDT Patient confirmed 12/06 appt w/US @ . Schedule mailed for patient review. He also mentioned that during last hosp stay he was to have barium swallow study after dischg. Told him I would have [facility] review and we would be i touch if needed. He verbalized understanding. documented in this encounter Plan of Treatment Not on file documented as of this encounter Visit Diagnoses Not on filedocumented in this encounter Additional Health Concerns Infection Onset Date Last Indicated Resolved Time COVID-19 Rule-Out 11/08/2021 11/08/2021 11/08/2021 8:06 AM EDT documented as of this encounter Care Teams Community Development Director Relationship Specialty Start Date End Date Edgar Fournier MD [address] [place] [address] PCP - General 12/25/20 Enrique Griffith MD [address] [place] [address] Referring Physician Nephrology 01/08/21 documented as of this encounter
--- OUTSIDE RECORDS SUMMARY | 2024-07-12 13:09 | XMS_ITS | Encounter Summary ---
Author Organization [facility] Address [address] [place] [address] Care Team Providers Care Social Worker Clinical Name Role Phone Unavailable Primary Care Provider Unavailabl e Encounter Details Date Type Department Care Team (Late st Contact Info) Description 04/28/2016 Legneeraj Serrano Encounter HISTORICAL OTTR [address] [place] [address] Provider, MD Amrit [address] [place] [address] Social History Tobacco Use Types Packs/Day [...] - Inhaled Oxygen Concentration - - Weight 106 kg (234 lb 9.2 oz) 04/28/2016 7:34 AM EDT Height 170.1 cm (5' 6.97 ) 04/28/2016 7:34 AM ED T Body Mass Index 36.77 04/28/2016 7:34 AM EDT documented in this encounter Plan of Treatment Not on file documented as of this encounter Visit Diagnoses Not on filedocumented in this encounter
--- OUTSIDE RECORDS SUMMARY | 2024-07-12 13:09 | XMS_ITS | Encounter Summary ---
Author Organization [facility] Address [address] [id number] Care Team Providers Care Sailing Master Name Role Phone Edgar Fournier MD Primary Care Provider [phone] Enrique Griffith MD Unavailable [phone] Encounter Details Date Type Department Care Team (Late st Contact Info) Description 09/13/2016 [facility] Encounter HISTORICAL OTTR [address] [place] [address] Bridgett Márquez, RN [facility] [id number] [address] [place] [id number] Social History Tobacco Use Types Packs/Day Years Used Date Smoking Tobacco: Never Assessed Sex and Gender Information Value Date Recorded Sex Assigned at Not on file Legal Sex Male 6:10 PM EDT Gender Identity Not on file Sexual Orientation Straight 03/02/2021 10 :04 AM EDT documented as of this encounter Miscellaneous Notes * Progress Notes - Bridgett Márquez - 09/13/2016 2:48 PM EST Rec'd ph call from patient. He adv he has had increased nausea and difficulty sleeping. He also advhis urine is dark. He wants to be seen in the clinic soon. Made appt for patient to come to clinic tomororw at 7am. documented in this encounter Plan of Treatment Not on file documented as of this encounter Visit Diagnoses Not on filedocumented in this encounter Additional Health Concerns Infection Onset Date Last Indicated Resolved Time COVID-19 Rule-Out 11/08/2021 11/08/2021 11/08/2021 8:06 AM EDT documented as of this encounter Care Teams Sailing Master Relationship Specialty Start Date End Date Edgar Fournier MD [address] [place] [address] PCP - General 12/25/20 Enrique Griffith MD [address] [place] [address] Referring Physician Nephrology 01/08/21 documented as of this encounter
--- OUTSIDE RECORDS SUMMARY | 2024-07-12 13:09 | XMS_ITS | Encounter Summary ---
Author Organization [facility] Address [address] [place] [address] Care Team Providers Care Drencher Name Role Phone Edgar Fournier MD Primary Care Provider [phone] Enrique Griffith MD Unavailable [phone] Encounter Details Date Type Department Care Team (Late st Contact Info) Description 07/01/2016 Abstract [facility] [address] [facility] [address] [place] [address] Barry, Coordinator, RN [address] [place] [address] Social History Tobacco Use Types Packs/Day [...] on filedocumented in this encounter Care Teams Drencher Relationship Specialty Start Date End Date Edgar Fournier MD [facility] [place] [address] PCP - General 12/25/20 Enrique Griffith MD [address] [place] [address] Referring Physician Nephrology 01/08/21 documented as of this encounter
--- OUTSIDE RECORDS SUMMARY | 2024-07-12 13:09 | XMS_ITS | Encounter Summary ---
Author Organization [facility] Address [address] [place] [address] Care Team Providers Care Service Superintendent Name Role Phone Edgar Fournier MD Primary Care Provider [phone] Enrique Griffith MD Unavailable [phone] Encounter Details Date Type Department Care Team (Late st Contact Info) Description 11/17/2016 [facility] Encounter HISTORICAL OTTR [address] [place] [address] Cristal Montano [address] [address] Social History Tobacco Use Types Packs/Day Years Used Date Smoking Tobacco: Never Assessed Sex and Gender Information Value Date Recorded Sex Assigned at Not on file Legal Sex Male 6:10 PM EDT Gender Identity Not on file Sexual Orientation Straight 03/02/2021 10 :04 AM EDT documented as of this encounter Miscellaneous Notes * Progress Notes - Cristal Montano - 11/17/2016 1:58 PM EDT Forms faxed to IR for Barium Swallow. documented in this encounter Plan of Treatment Not on file documented as of this encounter Visit Diagnoses Not on filedocumented in this encounter Additional Health Concerns Infection Onset Date Last Indicated Resolved Time COVID-19 Rule-Out 11/08/2021 11/08/2021 11/08/2021 8:06 AM EDT documented as of this encounter Care Teams Service Superintendent Relationship Specialty Start Date End Date Edgar Fournier MD [address] [place] [address] PCP - General 12/25/20 Enrique Griffith MD [address] [place] [phone] Referring Physician Nephrology 01/08/21 documented as of this encounter
--- OUTSIDE RECORDS SUMMARY | 2024-07-12 13:09 | XMS_ITS | Encounter Summary ---
Author Organization [facility] Address [address] [place] [address] Care Team Providers Care Joint Sealer Name Role Phone Edgar Fournier MD Primary Care Provider [phone] Enrique Griffith MD Unavailable [phone] Encounter Details Date Type Department Care Team (Late st Contact Info) Description 11/02/2016 [facility] Encounter HISTORICAL OTTR [address] [place] [address] ProviderAmrit MD [address] [place] [address] Social History Tobacco Use Types Packs/Day Years Used Date Smoking Tobacco: Never Assessed Sex and Gender Information Value Date Recorded Sex Assigned at Not on file Legal Sex Male 6:10 PM EDT Gender Identity Not on file Sexual Orientation Straight 03/02/2021 10 :04 AM EDT documented as of this encounter Miscellaneous Notes * Progress Notes - ProviderAmrit MD - 11/02/2016 8:47 AM EDT PA for Xifaxan approved from 11/01/16 - 11/01/17 documented in this encounter Plan of Treatment Not on file documented as of this encounter Visit Diagnoses Not on filedocumented in this encounter Additional Health Concerns Infection Onset Date Last Indicated Resolved Time COVID-19 Rule-Out 11/08/2021 11/08/2021 11/08/2021 8:06 AM EDT documented as of this encounter Care Teams Joint Sealer Relationship Specialty Start Date End Date Edgar Fournier MD [address] [place] [address] PCP - General 12/25/20 Enrique Griffith MD [address] [place] [address] Referring Physician Nephrology 01/08/21 documented as of this encounter
--- OUTSIDE RECORDS SUMMARY | 2024-07-12 13:09 | XMS_ITS | Encounter Summary ---
Author Organization [facility] Address [address] [place] [id number] Care Team Providers Care Loader Machine Name Role Phone Edgar Fournier MD Primary Care Provider [phone] Enrique Griffith MD Unavailable [phone] Encounter Details Date Type Department Care Team (Late st Contact Info) Description 11/23/2016 [facility] Encounter HISTORICAL OTTR [address] [place] [address] Bridgett Márquez, RN [facility] [id number] [address] [phone] Social History Tobacco Use Types Packs/Day Years Used Date Smoking Tobacco: Never Assessed Sex and Gender Information Value Date Recorded Sex Assigned at Not on file Legal Sex Male 6:10 PM EDT Gender Identity Not on file Sexual Orientation Straight 03/02/2021 10 :04 AM EDT documented as of this encounter Miscellaneous Notes * Progress Notes - Bridgett Márquez - 11/23/2016 5:34 PM EDT patient d/c home. RTC 4-25-17 documented in this encounter Plan of Treatment Not on file documented as of this encounter Visit Diagnoses Not on filedocumented in this encounter Additional Health Concerns Infection Onset Date Last Indicated Resolved Time COVID-19 Rule-Out 11/08/2021 11/08/2021 11/08/2021 8:06 AM EDT documented as of this encounter Care Teams Loader Machine Relationship Specialty Start Date End Date Edgar Fournier MD [address] [place] [address] PCP - General 12/25/20 Enrique Griffith MD [address] [place] [address] Referring Physician Nephrology 01/08/21 documented as of this encounter
--- OUTSIDE RECORDS SUMMARY | 2024-07-12 13:09 | XMS_ITS | Encounter Summary ---
Author Organization [facility] Address [address] [place] [address] Care Team Providers Care Contact Centre Supervisor Name Role Phone Edgar Fournier MD Primary Care Provider [phone] Enrique Griffith MD Unavailable [phone] Encounter Details Date Type Department Care Team (Late st Contact Info) Description 07/25/2016 [facility] Encounter HISTORICAL OTTR [address] [place] [address] ProviderAmrit MD [address] [place] [id number] Social History Tobacco Use Types Packs/Day Years Used Date Smoking Tobacco: Never Assessed Sex and Gender Information Value Date Recorded Sex Assigned at Not on file Legal Sex Male 6:10 PM EDT Gender Identity Not on file Sexual Orientation Straight 03/02/2021 10 :04 AM EDT documented as of this encounter Miscellaneous Notes * Progress Notes - ProviderAmrit MD - 07/25/2016 10:30 AM EST Talked to Aiden, he has been approved for SSD payments to start next month. He had questions about how this would effect his Medicaid eligibility and his coinsurance after Medicare starts. Went over how to contact Medicaid in determining his eligibility w/ payments and programs he could apply for if Medicaid terminated. Also went over coinsurance structure of Medicare. He will call back if any questions. * Progress Notes - ProviderAmrit MD - 07/21/2016 10:11 AM EST PA submitted for twice daily dosing of pantoprazole. Insurance requires PA if taking more than oncedaily. * Progress Notes - Bridgett Márquez - 07/21/2016 9:43 AM EST Patient to RTC 09-21-16 at 840. Orders in [facility]. Patient MELD Score 18, updated in [facility]. * Progress Notes - Bridgett Márquez - 07/21/2016 9:38 AM EST Rec'd ph call from patient. He advised he tried to lease picker the pantoprazole that AG prescribed yesterday, but was advsied at the pharmacy he needs PA. Will have LB and JTreview. * Progress Notes - ProviderAmrit MD - 07/20/2016 10:12 AM EST 41-year-old male with a history of SAL-induced liver cirrhosis, Gilbert's syndrome came in for follow up appointment. He was admitted in April for rapid evaluation. Listed for liver transplant. MELD NA 18 today. Hepatic encephalopathy:Now well controlled, h/o multiple hospitalizations.Advised not to re start Flexeril, xanax and percocet. Plan: Continue lactulose with 2-3 BM/day and rifaximin. Denies any ascites- not on diuretics, recent MRI Abdomen showed small ascites. EGD in 07/2015 showed grade III esophageal varices on coreg, HR 88 today. Will increase Carvedilol to 25/12.5 to titrate HR 60-70. MRI Abdomen-04/2016-no HCC. HTN: Elevated: He says his BP is usually high when he goes to doctor's office, today SBP 170. Will increase carvedilol.Advised to see PMD for better Mx of BP. RTC in 2 months. * Progress Notes - Bridgett Márquez - 07/18/2016 8:27 AM EST Patient scheduled to RTC 07-20-16 at 8:30am. Phd patient-s/w Aiden, he will be there. * Progress Notes - Bridgett Márquez - 07/04/2016 3:08 PM EST Rec'd ph call from patient. He may have pink eye and would like to reschedule tomorrows appt for either 07/12 or 07-13. Will review with schedulers. * Progress Notes - Bridgett Márquez - 07/01/2016 1:34 PM EST Patient listed with MELD of 21. Phd patient- adv of listing. * Progress Notes - Bridgett Márquez - 06/30/2016 10:17 AM EST Rec'd copy of labs. Only CMP, Myoglobin, and CK CKMB drawn. Phd patient-no answer. * Progress Notes - Bridgett Márquez - 06/29/2016 1:16 PM EST Need updated labs to proceed with listing. Phd patient-s/w Aiden. He adv he was in ED at [facility] yesterday. He advised he fell and hit his head. They checked him out and sent him home. Will see if they luis alberto the labs I need. Phd Brand Comm- they will fax over records. * Progress Notes - Bridgett Márquez - 06/29/2016 1:13 PM EST Rec'd ph call from Nadya at [facility]. Patient auth recieved for transplant. PA # [id number]. Good from 06-27-2016 until patient has transplant. They will send letter stating same. * Progress Notes - Bridgett Márquez - 06/27/2016 3:56 PM EST PA for listing request submitted to [place] Medicaid * Progress Notes - Bridgett Márquez - 06/27/2016 3:56 PM EST Phd patient-s/w Aiden, adv OK to list, pending insurance. He understood. * Progress Notes - Erika Truong - 06/22/2016 2:00 PM EST received call from pt - he reports being in severe pain since Juan Alberto Ansari took him off Flexeril andXananflex yesterday - pt unsure what to take for back pain nw - he may got to local ER for assessment - will review with providers * Progress Notes - Jack Ansari - 06/21/2016 1:15 PM EST Malou, I asked him to stop his Flexeril but I've decided to stop the Tizanidine (Xanaflex) also. I tried to call him but just got a busy signal. Would you try to reach him and tell him to stop both Flexeril and Tizanidine until I see him back. * Progress Notes - Bridgett Márquez - 06/08/2016 2:51 PM EDT Patient scheduled to f-up in clinic 06-21-2016 at 9am. * Progress Notes - Bridgett Márquez - 06/07/2016 11:10 AM EDT Rec'd ph call from Nadya. She adv she was mistaken, ABG preformed yesterday. She faxed me results. pH 7.5 PCO2 35 Po2 77, Bicarb 28.2, O2 Sat 96% Patient still needs to f-up in clinic next week post discharge. * Progress Notes - Bridgett Márquez - 06/07/2016 10:54 AM EDT Phd [facility]-s/w Nadya, she adv ABG not drawn. Patient was d/c today. Per committee discussion yesterday will need to have patient brought in to follow-up post hospital admission. Patient will need to f-up in clinic next week or so, and will schedule to have ABG drawn at that time. * Progress Notes - Bridgett Márquez - 06/06/2016 12:41 PM EDT Rec'd ph call from Dr. Olmedo at [facility]. Patient admitted for HE. No signs of infection. Patient will not be able to make ABG tomorrow. They will draw ABG while he is inpatient. * Progress Notes - Bridgett Márquez - 06/02/2016 12:19 PM EDT Rec'd EGD from [facility] into [facility] * Progress Notes - Bridgett Márquez - 06/02/2016 11:39 AM EDT Patient scheduled for 06-07-16 at 10 am for ABG. Needs to go to PFT lab on 5th floor. Phd patient-s/w Aiden, he understood. * Progress Notes - Dusty Cristal Maria Teresa - 06/02/2016 11:32 AM EDT Pt is scheduled for ABG only on 06/07 at 10:00am. Pt will need to arrive at [facility] on the 5th fl of [place]. [facility] to notify pt. * Progress Notes - Bridgett Márquez - 06/02/2016 9:47 AM EDT Need to obtain copy of EGD from [facility]. Phd [facility]-s/w Heather, she will fax records to me. * Progress Notes - Bridgett Márquez - 06/02/2016 9:44 AM EDT Reviewed notes, patient still needs to have ABG for evaluation. ORders in [facility], msg to AG to schedule NIELS/ * Progress Notes - Bridgett Márquez - 05/23/2016 11:21 AM EDT Rec'd ph call from patient. He advised he has been released from [facility]. He adv hewas not happy with the treatment he had at the hospital, and is still feeling a little run down. Headv he is going to see PCP today. * Progress Notes - Bridgett Márquez - 05/19/2016 2:11 PM EDT Rec'd ph call from patient. He advised he was admitted to [facility] on Monday for elevated pneumonia. They are also treating him for elevated BS, possible kidney infection. * Progress Notes - Bridgett Márquez - 05/19/2016 2:07 PM EDT Rec'd msg from patient that he was in ED at [facility]. Phd patient cell- unable to leave a message. * Progress Notes - Bridgett Márquez - 05/17/2016 10:22 AM EDT Awaiting hepatology visit on 06-01 and endocrinology visit on 05-31 * Progress Notes - George November - 05/12/2016 11:08 AM EDT Patient scheduled for labs/hep on 06/01 arriving at 7:00am. [facility] to advise patient of time and date.Reminder mailed to patient for review. * Progress Notes - Bridgett Márquez - 05/12/2016 9:27 AM EDT Patient scheduled tommorrow for MRI at 9:30. Needs to arrive at 9:00 at [facility], NPO after midnight. Still need to schedule f-up with hepatology and ABG. Msg to AG to schedule. * Progress Notes - George November - 05/09/2016 8:38 AM EDT From 05/04 - called radiology regarding Urgent MRI needed in 2-3 weeks. Followed up w/radiology today and still waiting for manger to call w/availability. * Progress Notes - Bridgett Márquez - 05/04/2016 11:45 AM EDT Rec'd ph call from Aiden. He advised he is feeling better. He advised he feels that body is finished flushing dye from scans. * Progress Notes - Bridgett Márquez - 05/04/2016 11:39 AM EDT Rec'd labs from [facility]. Pt MELD score is 18. Phd patient again- no answer. * Progress Notes - Bridgett Márquez - 05/04/2016 9:23 AM EDT Phd patient- no answer. Phd [facility]- s/w lab, they will fax me results. * Progress Notes - Bridgett Márquez - 05/03/2016 10:45 AM EDT Rec'd ph call from patient. He advised he has been feeling weak and dehydrated and would like to goto the ED at [facility]. I advised I will fax lab order. He understood. * Progress Notes - Bridgett Márquez - 05/02/2016 5:17 PM EDT Patient scheduled endocrinology appt 05-31-16 at 11:00am. Need Urgent MRI abdomen, orders in [facility], msg to AG to schedule. Need to scheduled RTC with hepatology for 2-3 weeks. Will have AG schedule. * Progress Notes - George November - 05/02/2016 1:27 PM EDT Urgent MRI, need to see Endocrinology, needs ABG and revisit. * Progress Notes - Provider, MD Amrit - 04/28/2016 4:18 PM EDT SW assessment completed. The primary psychosocial concern is patient's lack of household income. Heand his reported that their parents are supporting them financially until he is approved for disability income. This situation should be monitored and patient should provide financial updates asnew information is available. Otherwise, he meets minimal listing criteria and is socially cleared for listing. Full report in [facility]. * Progress Notes - Bridgett Márquez - 04/26/2016 11:51 AM EDT Phd patient-s/w Aiden, irwin we will proceed with rapid. He understood. Letter sent to patient and provider adv same. * Progress Notes - George November - 04/26/2016 9:31 AM EDT Spoke to patient regarding Rapid Eval scheduled for 04/28-. He will arrive at 8:00am, understands he will be admitted for further testing and discharged 04/29. Will attempt to send schedule via [place] [employer] No [id number] with another package at front end wheel loader operator. He verbalized understanding. * Progress Notes - Bridgett Márquez - 04/25/2016 7:26 PM EDT Per committee decision, patient to have RAPID evaluation. Msg to AG to schedule * Progress Notes - Bridgett Márquez - 04/22/2016 2:[address] Ortega [phone]-s/w code clerk, she will fax report to my attention. * Progress Notes - Amrit Chan MD - 04/22/2016 12:15 PM EDT FC letter added to all docs. * Progress Notes - Amrit Chan MD - 04/21/2016 2:49 PM EDT received call from pt stating he had ECHO at Dr. Ortega office today. They read this afternoon and the phone# for us to call and get this report is [phone]. Pt has disc of the ECHO and will bringwith him to appt in the morning tomorrow, 04-22-16 but will not have the report to accompany. Note to Honorio Gamez to f/u and get what is needed for dr visit tomorrow. * Progress Notes - Vera Rosales - 04/14/2016 3:54 PM EDT Spoke to Mr Stauffer again - encouraged him to follow up with Dr Ortega and have that Echo as recommended. The Echo is scheduled for 04/21 and the stress test is 04/28. Requested him to bring those resultswith him to his ICE on 04/22. He voiced understanding. * Progress Notes - Vera Rosales E - 04/14/2016 3:45 PM EDT Mr Stauffer saw Dr Ortega in [facility] for sleep apnea consult - they did an ekg at the time of his appointment and expressed concern regarding his heart function (stating that he has alsready suffered a mild heart attack or he is getting ready to have one) and wants to get an US of his heart. If he has to have this done he would rather have it done here at and needs recommendation on how to proceed.Request sent to [facility] for review. * Progress Notes - Vera Rosales E - 04/14/2016 11:23 AM EDT Spoke to Mr Stauffer - confirmed 04/22 7:40am register and labs/ CT abd with 8:40am registration and instruction to be NPO 4 hours and to return to clinic directly after CT to see surgeon. he voiced understanding and requested email for his appointment schedule. * Progress Notes - Vera Rosales E - 04/13/2016 2:26 PM EDT Updated referral from Dr Friedman. * Progress Notes - Vera Rosales E - 10/05/2015 9:[address] Chauhan office for updated - they have not seen him since July. * Progress Notes - Vera Rosales - 10/05/2015 9:40 AM EST Spoke to Mr Stauffer - confirmed his appointment with AG at [facility] on 10/08 at 2pm. He is concernedas his labs are showing some significant changes. Discussed him coming to ED if he needs to but keeping the appt with AG as she will best determine poc at this time. He agreed[facility]. * Progress Notes - Karolina Brown - 08/18/2015 1:05 PM EST Received call from pt stating Dr. Chauhan would like for him to be seen in the transplant center again. Discussed with Vera Rosales....Pt to have Dr. Chauhan fax updated info so that we may schedule appropriately. documented in this encounter Plan of Treatment Not on file documented as of this encounter Procedures Procedure Name Priority Date/Time Associated Diagnosis Comments OTTR LAB RESULTS (MANUAL) Routine 07/20/2016 8:45 AM EST OTTR LAB RESULTS (MANUAL) Routine 06/30/2016 3:53 PM EST OTTR LAB RESULTS (MANUAL) Routine 06/28/2016 1:46 AM EST OTTR LAB RESULTS (MANUAL) Routine 06/21/2016 9:24 AM EST OTTR LAB RESULTS (MANUAL) Routine 06/03/2016 9:19 PM EDT OTTR LAB RESULTS (MANUAL) Routine 06/01/2016 7:45 AM EDT OTTR LAB RESULTS (MANUAL) Routine 05/03/2016 3:36 PM EDT OTTR LAB RESULTS (MANUAL) Routine 04/28/2016 10:50 AM EDT OTTR LAB RESULTS (MANUAL) Routine 04/22/2016 7:55 AM EDT OTTR LAB RESULTS (MANUAL) Routine 03/16/2016 11:08 AM EDT OTTR LAB RESULTS (MANUAL) Routine 10/08/2015 3:55 PM EST documented in this encounter Results * OTTR LAB RESULTS (MANUAL) (07/20/2016 8:45 AM EST) External Estimated GFR 74.87 EXTERNAL LAB 07/20/2016 8:45 AM EST Narrative EXTERNAL LAB - 07/20/2016 9:52 AM EST Automated LAB Interface Historical Provider MD LAB BLOOD ORDERABLES Yoselin l Result EXTERNAL LAB * OTTR LAB RESULTS (MANUAL) (06/30/2016 3:53 PM EST) External WBC 1.8 k/uL EXTERNAL LAB External Hemoglobin (Hgb) 10.4 gm/dL EXTERNAL LAB External Hematocrit (Hct) 30.4 % EXTERNAL LAB External Platelet Count (Plt) 83 k/uL EXTERNAL LAB External Prothrombin Time (PT) 13.2 seconds EXTERNAL LAB External INR - Internormal Ratio 1.31 EXTERNAL LAB External Glucose 415 mg/dL EXTERNAL LAB External BUN 16 mg/dL EXTERNAL LAB External Creatinine Blood 2.1 mg/dL EXTERNAL LAB External Sodium (Na) 140 mmol/L EXTERNAL LAB External Potassium (K) 4.6 mmol/L EXTERNAL LAB External Chloride (Cl) 104 mmol/L EXTERNAL LAB External Carbon Dioxide (CO2) 23 mmol/L EXTERNAL LAB External Calcium (Ca) 7.9 mg/dL EXTERNAL LAB External AST (SGOT) 59 units/L EXTERNAL LAB External ALT (SGPT) 33 units/L EXTERNAL LAB External Alkaline Phosphatase 121 U/L EXTERNAL LAB External Bilirubin Total 3.3 mg/dL EXTERNAL LAB External Total Protein 5.8 g/dL EXTERNAL LAB External Albumin 2.2 g/dL EXTERNAL LAB External Estimated GFR 37.00 EXTERNAL LAB 06/30/2016 3:53 PM EST Narrative EXTERNAL LAB - 07/01/2016 1:11 PM EST [facility] us Historical Provider LAB BLOOD ORDERABLES Yoselin l Result EXTERNAL LAB * OTTR LAB RESULTS (MANUAL) (06/28/2016 1:46 AM EST) External Sodium (Na) 142 mmol/L EXTERNAL LAB External Potassium (K) 3.6 mmol/L EXTERNAL LAB External Chloride (Cl) 106 mmol/L EXTERNAL LAB External Carbon Dioxide (CO2) 25 mmol/L EXTERNAL LAB External Calcium (Ca) 8.1 mg/dL EXTERNAL LAB External AST (SGOT) 52 units/L EXTERNAL LAB External ALT (SGPT) 29 units/L EXTERNAL LAB External Alkaline Phosphatase 113 U/L EXTERNAL LAB External Bilirubin Total 5.4 mg/dL EXTERNAL LAB External Total Protein 5.7 g/dL EXTERNAL LAB External Albumin 2.1 g/dL EXTERNAL LAB 06/28/2016 1:46 AM EST Narrative EXTERNAL LAB - 06/30/2016 10:19 AM EST [facility] Historical Provider MD LAB BLOOD ORDERABLES Yoselin l Result Performing Organization Address City/[facility]/ZIP Co de Phone Number EXTERNAL LAB * OTTR LAB RESULTS (MANUAL) (06/21/2016 9:24 AM EST) External Estimated GFR 71.25 EXTERNAL LAB 06/21/2016 9:24 AM EST Narrative EXTERNAL LAB - 06/21/2016 10:47 AM EST Automated LAB Interface Historical Provider MD LAB BLOOD ORDERABLES Yoselin l Result Performing Organization Address City/[facility]/ZIP Co de Phone Number EXTERNAL LAB * OTTR LAB RESULTS (MANUAL) (06/03/2016 9:19 PM EDT) External Estimated GFR 97.11 EXTERNAL LAB 06/03/2016 9:19 PM EDT Narrative EXTERNAL LAB - 06/03/2016 9:59 PM EDT Automated LAB Interface Historical Provider MD LAB BLOOD ORDERABLES Yoselin l Result EXTERNAL LAB * OTTR LAB RESULTS (MANUAL) (06/01/2016 7:45 AM EDT) External Estimated GFR 79.69 EXTERNAL LAB 06/01/2016 7:45 AM EDT Narrative EXTERNAL LAB - 06/01/2016 8:49 AM EDT Automated LAB Interface Historical Provider MD LAB BLOOD ORDERABLES Yoselin l Result EXTERNAL LAB * OTTR LAB RESULTS (MANUAL) (05/03/2016 3:36 PM EDT) Pathologist [facility] External WBC 2.9 k/uL EXTERNAL LAB External Hemoglobin (Hgb) 11.8 gm/dL EXTERNAL LAB External Hematocrit (Hct) 34.5 % EXTERNAL LAB External Platelet Count (Plt) 118 k/uL EXTERNAL LAB External Prothrombin Time (PT) 12.8 seconds EXTERNAL LAB External INR - Internormal Ratio 1.27 EXTERNAL LAB External Glucose 399 mg/dL EXTERNAL LAB External BUN 13 mg/dL EXTERNAL LAB External Creatinine Blood 1.4 mg/dL EXTERNAL LAB External Sodium (Na) 139 mmol/L EXTERNAL LAB External Potassium (K) 3.8 mmol/L EXTERNAL LAB External Chloride (Cl) 102 mmol/L EXTERNAL LAB External Carbon Dioxide (CO2) 26 mmol/L EXTERNAL LAB External Calcium (Ca) 8.6 mg/dL EXTERNAL LAB External AST (SGOT) 63 units/L EXTERNAL LAB External ALT (SGPT) 42 units/L EXTERNAL LAB External Alkaline Phosphatase 146 U/L EXTERNAL LAB External Bilirubin Total 4.6 mg/dL EXTERNAL LAB External Total Protein 6.7 g/dL EXTERNAL LAB External Albumin 2.7 g/dL EXTERNAL LAB External Estimated GFR 59.07 EXTERNAL LAB 05/03/2016 3:36 PM EDT Narrative EXTERNAL LAB - 05/04/2016 11:38 AM EDT [facility] Historical Provider MD LAB BLOOD ORDERABLES Yoselin l Result EXTERNAL LAB * OTTR LAB RESULTS (MANUAL) (04/28/2016 10:50 AM EDT) External Estimated GFR 97.11 EXTERNAL LAB 04/28/2016 10:5 0 AM EDT Narrative EXTERNAL LAB - 04/28/2016 12:43 PM EDT Automated LAB Interface Historical Provider MD LAB BLOOD ORDERABLES Yoselni l Result Performing Organization Address City/State/[facility] Co de Phone Number EXTERNAL LAB * OTTR LAB RESULTS (MANUAL) (04/22/2016 7:55 AM EDT) External Estimated GFR 95.89 EXTERNAL LAB 04/22/2016 7:55 AM EDT Narrative EXTERNAL LAB - 04/22/2016 9:13 AM EDT Automated LAB Interface Historical Provider MD LAB BLOOD ORDERABLES Yoselin l Result Performing Organization Address [facility] Co de Phone Number EXTERNAL LAB * OTTR LAB RESULTS (MANUAL) (03/16/2016 11:08 AM EDT) External Estimated GFR 90.21 EXTERNAL LAB 03/16/2016 11:0 8 AM EDT Narrative EXTERNAL LAB - 03/16/2016 11:45 AM EDT Automated LAB Interface Historical Provider MD LAB BLOOD ORDERABLES Yoselin l Result Performing Organization Address [facility] Co de Phone Number EXTERNAL LAB * OTTR LAB RESULTS (MANUAL) (10/08/2015 3:55 PM EST) External Estimated GFR 92.41 EXTERNAL LAB 10/08/2015 3:55 PM EST Narrative EXTERNAL LAB - 10/12/2015 8:01 AM EST Automated LAB Interface Historical Provider MD LAB BLOOD ORDERABLES Yoselin l Result Performing Organization Address City/[facility] Co de Phone Number EXTERNAL LAB documented in this encounter Visit Diagnoses Not on filedocumented in this encounter Additional Health Concerns Infection Onset Date Last Indicated Resolved Time COVID-19 Rule-Out 11/08/2021 11/08/2021 11/08/2021 8:06 AM EDT documented as of this encounter Care Teams Contact Centre Supervisor Relationship Specialty Start Date End Date Edgar Fournier MD [address] [place], [place] [id number] PCP - General 12/25/20 Enrique Griffith MD [address] [place] [phone] Referring Physician Nephrology 01/08/21 documented as of this encounter
--- OUTSIDE RECORDS SUMMARY | 2024-07-12 13:09 | XMS_ITS | Encounter Summary ---
Author Organization [facility] Address [address] [id number] Care Team Providers Care Credit Risk Analytics Manager Name Role Phone Edgar Fournier MD Primary Care Provider [phone] Enrique Griffith MD Unavailable [phone] Encounter Details Date Type Department Care Team (Late st Contact Info) Description 10/17/2016 [facility] OTTR Encounter HISTORICAL OTTR [address] [place] [address] Bridgett Márquez, RN [facility] [id number] [address] [id number] Social History Tobacco Use Types Packs/Day Years Used Date Smoking Tobacco: Never Assessed Sex and Gender Information Value Date Recorded Sex Assigned at Not on file Legal Sex Male 6:10 PM EDT Gender Identity Not on file Sexual Orientation Straight 03/02/2021 10 :04 AM EDT documented as of this encounter Miscellaneous Notes * Progress Notes - Bridgett Márquez - 10/17/2016 12:32 PM EST Reviewed with HR. Patient still actively bleeding, and is on pressors. Will inactivate patient. documented in this encounter Plan of Treatment Not on file documented as of this encounter Procedures Procedure Name Priority Date/Time Associated Diagnosis Comments OTTR LAB RESULTS (MANUAL) Routine 10/17/2016 2:16 AM EST documented in this encounter Results * OTTR LAB RESULTS (MANUAL) (10/17/2016 2:16 AM EST) External Estimated GFR 65.79 EXTERNAL LAB 10/17/2016 2:16 AM EST Narrative EXTERNAL LAB - 10/17/2016 6:47 AM EST Automated LAB Interface us Historical Provider LAB BLOOD ORDERABLES Yoselin l Result EXTERNAL LAB documented in this encounter Visit Diagnoses Not on filedocumented in this encounter Additional Health Concerns Infection Onset Date Last Indicated Resolved Time COVID-19 Rule-Out 11/08/2021 11/08/2021 11/08/2021 8:06 AM EDT documented as of this encounter Care Teams Credit Risk Analytics Manager Relationship Specialty Start Date End Date Edgar Fournier MD [address] [place] [address] PCP - General 12/25/20 Enrique Griffith MD [address] [place] [phone] Referring Physician Nephrology 01/08/21 documented as of this encounter
--- OUTSIDE RECORDS SUMMARY | 2024-07-12 13:09 | XMS_ITS | Encounter Summary ---
Author Organization [facility] Address [address] [id number] Care Team Providers Care Gui Developer Name Role Phone Edgar Fournier MD Primary Care Provider [phone] Enrique Griffith MD Unavailable [phone] Encounter Details Date Type Department Care Team (Late st Contact Info) Description 11/01/2016 [facility] OTTR Encounter HISTORICAL OTTR [address] [place] [address] Bridgett Márquez, RN [facility] [id number] [address] [id number] Social History Tobacco Use Types Packs/Day Years Used Date Smoking Tobacco: Never Assessed Sex and Gender Information Value Date Recorded Sex Assigned at Not on file Legal Sex Male 6:10 PM EDT Gender Identity Not on file Sexual Orientation Straight 03/02/2021 10 :04 AM EDT documented as of this encounter Miscellaneous Notes * Progress Notes - Bridgett Márquez - 11/01/2016 3:42 PM EDT Rec'd ph call from patient, he adv he needs PA for xifaxin. Will have JET review for PA. documented in this encounter Plan of Treatment Not on file documented as of this encounter Visit Diagnoses Not on filedocumented in this encounter Additional Health Concerns Infection Onset Date Last Indicated Resolved Time COVID-19 Rule-Out 11/08/2021 11/08/2021 11/08/2021 8:06 AM EDT documented as of this encounter Care Teams Gui Developer Relationship Specialty Start Date End Date Edgar Fournier MD [address] [place] [address] PCP - General 12/25/20 Enrique Griffith MD [address] [place] [phone] Referring Physician Nephrology 01/08/21 documented as of this encounter
--- OUTSIDE RECORDS SUMMARY | 2024-07-12 13:09 | XMS_ITS | Encounter Summary ---
Author Organization [facility] Address [address] [place] [address] Care Team Providers Care District Traffic Chief Name Role Phone Edgar Fournier MD Primary Care Provider [phone] Enrique Griffith MD Unavailable [phone] Encounter Details Date Type Department Care Team (Late st Contact Info) Description 10/24/2016 [facility] OTTR Encounter HISTORICAL OTTR [address] [place] [address] Sandrita Ferguson, DISPENSING LEAD [address] [facility] [address] [place] [address] Social History Tobacco Use Types Packs/Day Years Used Date Smoking Tobacco: Never Assessed Sex and Gender Information Value Date Recorded Sex Assigned at Not on file Legal Sex Male 6:10 PM EDT Gender Identity Not on file Sexual Orientation Straight 03/02/2021 10 :04 AM EDT documented as of this encounter Miscellaneous Notes * Progress Notes - Sandrita Ferguson - 10/24/2016 2:31 PM EDT 41 y/o male with decompensated SAL Cirrhosis, hepatic encephalopathy and esophageal varices, admitted w/ GIB, masive transfusion. s/p emergent EGD w/ banding, s/p TIPS 10/17. Continued with small bleed, repeat EGD and C-scope 10/20 w/ entire ileum and colon filled w/ blood. Possible sm. bowel bleed. If bleeding conts, will get CTA. - Extubated 10/23 now 2 L NC - Failed swallow study 10/24, strict NPO. Possible MBS tomorrow. - PT recs acute rehab - not yet ready for reactivation documented in this encounter Plan of Treatment Not on file documented as of this encounter Procedures Procedure Name Priority Date/Time Associated Diagnosis Comments OTTR LAB RESULTS (MANUAL) Routine 10/24/2016 4:00 AM EDT OTTR LAB RESULTS (MANUAL) Routine 10/23/2016 3:15 AM EDT OTTR LAB RESULTS (MANUAL) Routine 10/22/2016 4:06 PM EST OTTR LAB RESULTS (MANUAL) Routine 10/22/2016 2:24 AM EST documented in this encounter Results * OTTR LAB RESULTS (MANUAL) (10/24/2016 4:00 AM EDT) External Estimated GFR 96.65 EXTERNAL LAB 10/24/2016 4:00 AM EDT Narrative EXTERNAL LAB - 10/24/2016 3:15 AM EDT Automated LAB Interface Historical Provider LAB BLOOD ORDERABLES Yoselin l Result Performing Organization Address City/[facility] Co de Phone Number EXTERNAL LAB * OTTR LAB RESULTS (MANUAL) (10/23/2016 3:15 AM EDT) External Estimated GFR 80.17 EXTERNAL LAB 10/23/2016 3:15 AM EDT Narrative EXTERNAL LAB - 10/23/2016 4:16 AM EDT Automated LAB Interface Historical Provider LAB BLOOD ORDERABLES Yoselin l Result Performing Organization Address [facility] Co de Phone Number EXTERNAL LAB * OTTR LAB RESULTS (MANUAL) (10/22/2016 4:06 PM EST) External Estimated GFR 76.85 EXTERNAL LAB 10/22/2016 4:06 PM EST Narrative EXTERNAL LAB - 10/22/2016 4:48 PM EST Automated LAB Interface Historical Provider MD LAB BLOOD ORDERABLES Yoselin l Result Performing Organization Address [facility] Co de Phone Number EXTERNAL LAB * OTTR LAB RESULTS (MANUAL) (10/22/2016 2:24 AM EST) External Estimated GFR 80.17 EXTERNAL LAB 10/22/2016 2:24 AM EST Narrative EXTERNAL LAB - 10/22/2016 3:19 AM EST Automated LAB Interface Historical Provider MD LAB BLOOD ORDERABLES Yoselin l Result Performing Organization Address [facility] Co de Phone Number EXTERNAL LAB documented in this encounter Visit Diagnoses Not on filedocumented in this encounter Additional Health Concerns Infection Onset Date Last Indicated Resolved Time COVID-19 Rule-Out 11/08/2021 11/08/2021 11/08/2021 8:06 AM EDT documented as of this encounter Care Teams District Traffic Chief Relationship Specialty Start Date End Date Edgar Fournier MD [address] [place] [address] PCP - General 12/25/20 Enrique Griffith MD [address] [place] [address] Referring Physician Nephrology 01/08/21 documented as of this encounter
--- OUTSIDE RECORDS SUMMARY | 2024-07-12 13:09 | XMS_ITS | Encounter Summary ---
Author Organization [facility] Address [address] [place] [address] Care Team Providers Care Culinary Artist Name Role Phone Edgar Fournier MD Primary Care Provider Enrique Griffith MD Unavailable [phone] Encounter Details Date Type Department Care Team (Late st Contact Info) Description 10/20/2016 [facility] OTTR Encounter HISTORICAL OTTR [address] [place] [address] Sandrita Ferguson, BOATSWAIN MATE [address] [facility] [address] [place] [address] Social History Tobacco Use Types Packs/Day Years Used Date Smoking Tobacco: Never Assessed Sex and Gender Information Value Date Recorded Sex Assigned at Not on file Legal Sex Male 6:10 PM EDT Gender Identity Not on file Sexual Orientation Straight 03/02/2021 10 :04 AM EDT documented as of this encounter Miscellaneous Notes * Progress Notes - Sandrita Ferguson - 10/20/2016 4:30 PM EST 41 y/o male with decompensated SAL Cirrhosis, hepatic encephalopathy and esophageal varices - Pt still w/ small bleeding, to have EGD and c-scope today. Remains intubated . documented in this encounter Plan of Treatment Not on file documented as of this encounter Procedures Procedure Name Priority Date/Time Associated Diagnosis Comments OTTR LAB RESULTS (MANUAL) Routine 10/21/2016 4:00 AM EST OTTR LAB RESULTS (MANUAL) Routine 10/20/2016 11:17 AM EST OTTR LAB RESULTS (MANUAL) Routine 10/20/2016 2:11 AM EST documented in this encounter Results * OTTR LAB RESULTS (MANUAL) (10/21/2016 4:00 AM EST) External Estimated GFR 87.69 EXTERNAL LAB 10/21/2016 4:00 AM EST Narrative EXTERNAL LAB - 10/21/2016 3:12 AM EST Automated LAB Interface Historical Provider MD LAB BLOOD ORDERABLES Yoselin l Result Performing Organization Address [facility] Co de Phone Number EXTERNAL LAB * OTTR LAB RESULTS (MANUAL) (10/20/2016 11:17 AM EST) Pathologist [facility] External Estimated GFR 81.93 EXTERNAL LAB 10/20/2016 11:1 7 AM EST Narrative EXTERNAL LAB - 10/20/2016 12:03 PM EST Automated LAB Interface Historical Provider LAB BLOOD ORDERABLES Yoselin l Result EXTERNAL LAB * OTTR LAB RESULTS (MANUAL) (10/20/2016 2:11 AM EST) External Estimated GFR 79.31 EXTERNAL LAB 10/20/2016 2:11 AM EST Narrative EXTERNAL LAB - 10/20/2016 3:18 AM EST Automated LAB Interface Historical Provider LAB BLOOD ORDERABLES Yoselin l Result EXTERNAL LAB documented in this encounter Visit Diagnoses Not on filedocumented in this encounter Additional Health Concerns Infection Onset Date Last Indicated Resolved Time COVID-19 Rule-Out 11/08/2021 11/08/2021 11/08/2021 8:06 AM EDT documented as of this encounter Care Teams Culinary Artist Relationship Specialty Start Date End Date Edgar Fournier MD [address] [place] [address] PCP - General 12/25/20 Enrique Griffith MD [address] [place] [address] Referring Physician Nephrology 01/08/21 documented as of this encounter
--- OUTSIDE RECORDS SUMMARY | 2024-07-12 13:09 | XMS_ITS | Encounter Summary ---
Author Organization [facility] Address [address] [id number] Care Team Providers Care Dental Ceramist Assistant Name Role Phone Edgar Fournier MD Primary Care Provider [phone] Enrique Griffith MD Unavailable [phone] Encounter Details Date Type Department Care Team (Late st Contact Info) Description 09/15/2016 [facility] OTTR Encounter HISTORICAL OTTR [address] [place] [address] Bridgett Márquez, RN [facility] [id number] [address] [phone] Social History Tobacco Use Types Packs/Day Years Used Date Smoking Tobacco: Never Assessed Sex and Gender Information Value Date Recorded Sex Assigned at Not on file Legal Sex Male 6:10 PM EDT Gender Identity Not on file Sexual Orientation Straight 03/02/2021 10 :04 AM EDT documented as of this encounter Miscellaneous Notes * Progress Notes - Bridgett Márquez - 09/15/2016 11:16 AM EST Faxed order to [place] documented in this encounter Plan of Treatment Not on file documented as of this encounter Visit Diagnoses Not on filedocumented in this encounter Additional Health Concerns Infection Onset Date Last Indicated Resolved Time COVID-19 Rule-Out 11/08/2021 11/08/2021 11/08/2021 8:06 AM EDT documented as of this encounter Care Teams Dental Ceramist Assistant Relationship Specialty Start Date End Date Edgar Fournier MD [address] [place] [address] PCP - General 12/25/20 Enrique Griffith MD [address] [place] [address] Referring Physician Nephrology 01/08/21 documented as of this encounter
--- OUTSIDE RECORDS SUMMARY | 2024-07-12 13:09 | XMS_ITS | Encounter Summary ---
Author Organization [facility] Address [address] [phone] Care Team Providers Care Media Production Operator Name Role Phone Edgar Fournier MD Primary Care Provider [phone] Enrique Griffith MD Unavailable [phone] Encounter Details Date Type Department Care Team (Late st Contact Info) Description 11/16/2016 [facility] OTTR Encounter HISTORICAL OTTR [address] [place] [address] Bridgett Márquez, RN [facility] [id number] [address] [phone] Social History Tobacco Use Types Packs/Day Years Used Date Smoking Tobacco: Never Assessed Sex and Gender Information Value Date Recorded Sex Assigned at Not on file Legal Sex Male 6:10 PM EDT Gender Identity Not on file Sexual Orientation Straight 03/02/2021 10 :04 AM EDT documented as of this encounter Miscellaneous Notes * Progress Notes - Bridgett Márquez - 11/16/2016 10:59 AM EDT Reviewed patient hospital chart. Per therapy notes, he was supposed to repeat barium swallow test outpatient after discharge. Reviewed with [facility], she put in orders for test. Msg to AG to schedule at . documented in this encounter Plan of Treatment Not on file documented as of this encounter Visit Diagnoses Not on filedocumented in this encounter Additional Health Concerns Infection Onset Date Last Indicated Resolved Time COVID-19 Rule-Out 11/08/2021 11/08/2021 11/08/2021 8:06 AM EDT documented as of this encounter Care Teams Media Production Operator Relationship Specialty Start Date End Date Edgar Fournier MD [address] [place] [address] PCP - General 12/25/20 Enrique Griffith MD [address] [place] [phone] Referring Physician Nephrology 01/08/21 documented as of this encounter
--- OUTSIDE RECORDS SUMMARY | 2024-07-12 13:09 | XMS_ITS | Encounter Summary ---
Author Organization [facility] Address [address] [place] [address] Care Team Providers Care Lead Cytogenetic Technologist Name Role Phone Edgar Fournier MD Primary Care Provider [phone] Enrique Griffith MD Unavailable [phone] Encounter Details Date Type Department Care Team (Late st Contact Info) Description 07/01/2016 [facility] [address] [facility] [address] [place] [address] Barry, Coordinator, RN [address] [place] [address] Social History Tobacco Use Types Packs/Day [...] on filedocumented in this encounter Care Teams Lead Cytogenetic Technologist Relationship Specialty Start Date End Date Edgar Fournier MD [facility] [place] [address] PCP - General 12/25/20 Enrique Griffith MD [address] [place] [address] Referring Physician Nephrology 01/08/21 documented as of this encounter
--- OUTSIDE RECORDS SUMMARY | 2024-07-12 13:09 | XMS_ITS | Encounter Summary ---
Author Organization [facility] Address [address] [place] [address] Care Team Providers Care Internet Specialist Name Role Phone Edgar Fournier MD Primary Care Provider [phone] Enrique Griffith MD Unavailable [phone] Encounter Details Date Type Department Care Team (Late st Contact Info) Description 10/28/2016 [facility] OTTR Encounter HISTORICAL OTTR [address] [place] [address] Anne Ohara [facility] [address] [phone] Social History Tobacco Use Types Packs/Day Years Used Date Smoking Tobacco: Never Assessed Sex and Gender Information Value Date Recorded Sex Assigned at Not on file Legal Sex Male 6:10 PM EDT Gender Identity Not on file Sexual Orientation Straight 03/02/2021 10 :04 AM EDT documented as of this encounter Miscellaneous Notes * Progress Notes - Anne Ohara - 10/28/2016 2:09 PM EDT PT being DC from hospital RTC scheduled for 11-08-16 MD at 820am Labs 730am documented in this encounter Plan of Treatment Not on file documented as of this encounter Procedures Procedure Name Priority Date/Time Associated Diagnosis Comments OTTR LAB RESULTS (MANUAL) Routine 10/28/2016 8:50 AM EDT documented in this encounter Results * OTTR LAB RESULTS (MANUAL) (10/28/2016 8:50 AM EDT) External Estimated GFR 99.16 EXTERNAL LAB 10/28/2016 8:50 AM EDT Narrative EXTERNAL LAB - 10/28/2016 10:14 AM EDT Automated LAB Interface us Historical Provider LAB BLOOD ORDERABLES Yoselin robles Result EXTERNAL LAB documented in this encounter Visit Diagnoses Not on filedocumented in this encounter Additional Health Concerns Infection Onset Date Last Indicated Resolved Time COVID-19 Rule-Out 11/08/2021 11/08/2021 11/08/2021 8:06 AM EDT documented as of this encounter Care Teams Internet Specialist Relationship Specialty Start Date End Date Edgar Fournier MD [address] [place] [address] PCP - General 12/25/20 Enrique Griffith MD [address] [place] [phone] Referring Physician Nephrology 01/08/21 documented as of this encounter
--- OUTSIDE RECORDS SUMMARY | 2024-07-12 13:09 | XMS_ITS | Encounter Summary ---
Author Organization [facility] Address [address] [place] [address] Care Team Providers Care Electrical Line Worker Name Role Phone Unavailable Primary Care Provider Unavailabl e Encounter Details Date Type Department Care Team (Late st Contact Info) Description 05/31/2016 [facility] AEHR Vitals Encounter [facility] OUTPATIENT CONVERSIONS [address] [place] [address] Provider, MD Amrit [address] [place] [address] Social History Tobacco Use Types Packs/Day [...] - Inhaled Oxygen Concentration - - Weight 107 kg (236 lb 15.9 oz) 05/31/2016 10:58 AM EDT Height - - Body Mass Index 37.15 04/28/2016 7:34 AM EDT documented in this encounter Plan of Treatment Not on file documented as of this encounter Visit Diagnoses Not on filedocumented in this encounter
--- OUTSIDE RECORDS SUMMARY | 2024-07-12 13:09 | XMS_ITS | Encounter Summary ---
Author Organization [facility] Address [address] [id number] Care Team Providers Care Movie Theater Usher Name Role Phone Edgar Fournier MD Primary Care Provider [phone] Enrique Griffith MD Unavailable [phone] Encounter Details Date Type Department Care Team (Late st Contact Info) Description 08/30/2016 [facility] OTTR Encounter HISTORICAL OTTR [address] [place] [address] Bridgett Márquez, RN [facility] [id number] [address] [place] [address] Social History Tobacco Use Types Packs/Day Years Used Date Smoking Tobacco: Never Assessed Sex and Gender Information Value Date Recorded Sex Assigned at Not on file Legal Sex Male 6:10 PM EDT Gender Identity Not on file Sexual Orientation Straight 03/02/2021 10 :04 AM EDT documented as of this encounter Miscellaneous Notes * Progress Notes - Bridgett Márquez - 08/30/2016 2:25 PM EST Rec'd ph call from patient. He adv he was admitted to [facility] for pneumonia and possible kidney stones. He is home and feeling a little better. Will request records from [facility]. documented in this encounter Plan of Treatment Not on file documented as of this encounter Visit Diagnoses Not on filedocumented in this encounter Additional Health Concerns Infection Onset Date Last Indicated Resolved Time COVID-19 Rule-Out 11/08/2021 11/08/2021 11/08/2021 8:06 AM EDT documented as of this encounter Care Teams Movie Theater Usher Relationship Specialty Start Date End Date Edgar Fournier MD [address] [place] [address] PCP - General 12/25/20 Enrique Griffith MD [address] [place] [phone] Referring Physician Nephrology 01/08/21 documented as of this encounter
--- OUTSIDE RECORDS SUMMARY | 2024-07-12 13:09 | XMS_ITS | Encounter Summary ---
Author Organization [facility] Address [address] [id number] Care Team Providers Care Proof Clerk Name Role Phone Edgar Fournier MD Primary Care Provider [phone] Enrique Griffith MD Unavailable [phone] Encounter Details Date Type Department Care Team (Late st Contact Info) Description 10/12/2016 [facility] OTTR Encounter HISTORICAL OTTR [address] [place] [address] Bridgett Márquez, RN [facility] [id number] [address] [phone] Social History Tobacco Use Types Packs/Day Years Used Date Smoking Tobacco: Never Assessed Sex and Gender Information Value Date Recorded Sex Assigned at Not on file Legal Sex Male 6:10 PM EDT Gender Identity Not on file Sexual Orientation Straight 03/02/2021 10 :04 AM EDT documented as of this encounter Miscellaneous Notes * Progress Notes - Bridgett Márquez - 10/12/2016 11:05 AM EST Rec'd ph call from patient. He is currently in ER at [facility]. He adv he had EGD last week, and was banded. He adv he has a lot of pain and swelling. documented in this encounter Plan of Treatment Not on file documented as of this encounter Visit Diagnoses Not on filedocumented in this encounter Additional Health Concerns Infection Onset Date Last Indicated Resolved Time COVID-19 Rule-Out 11/08/2021 11/08/2021 11/08/2021 8:06 AM EDT documented as of this encounter Care Teams Proof Clerk Relationship Specialty Start Date End Date Edgar Fournier MD [address] [place] [address] PCP - General 12/25/20 Enrique Griffith MD [address] [place] [phone] Referring Physician Nephrology 01/08/21 documented as of this encounter
--- OUTSIDE RECORDS SUMMARY | 2024-07-12 13:09 | XMS_ITS | Encounter Summary ---
Author Organization [facility] Address [address] [place] [address] Care Team Providers Care Crm Marketing Analyst Name Role Phone Edgar Fournier MD Primary Care Provider Enrique Griffith MD Unavailable [phone] Encounter Details Date Type Department Care Team (Late st Contact Info) Description 10/28/2016 Legacy OTTR Encounter HISTORICAL OTTR [address] [place] [address] Antione Romano APRN [address] [facility] [address] [place] [phone] Social History Tobacco Use Types Packs/Day Years Used Date Smoking Tobacco: Never Assessed Sex and Gender Information Value Date Recorded Sex Assigned at Not on file Legal Sex Male 6:10 PM EDT Gender Identity Not on file Sexual Orientation Straight 03/02/2021 10 :04 AM EDT documented as of this encounter Miscellaneous Notes * Progress Notes - Antione Romano - 10/28/2016 4:25 PM EDT 41 y/o male with decompensated SAL Cirrhosis, hepatic encephalopathy and esophageal varices. 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 He presented to an OSH with c/o hematemesis, approximately 2L in volume. He was transfused 3U PRBCs and transferred to ICU at [facility]. On arrival he was actively vomiting blood and intubated for airway protection. The massive transfusion protocol was activated He received 10U PRBC, 12 units plts and 7U FFP. On emergent EGD with GI/Hepatology evidence of eroded varices was found, 6 bands placed. S/p TIPS 10/18. Repeat EGD and colonoscopy 10/20. -Decompensated SAL cirrhosis: Encephalopathy, bleeding varices, ascites, s/p TIPS on 10/18. Inactivated due to concerns with active bleeding, multiple blood products, pressor requirements, etc. Pt nowextubated. Passed swallow eval with mechanical soft diet and thickened liquids. Now on RA. Afebrile, no leukocytosis, not on abx's. Will make active on liver transplant list, Na+ MELD 16 today -UGIB with hemorrhagic shock: Resolved. HD stable. HandH stable, s/p TIPS placement for bleeding on10/17/16. Further bleeding with repeat colonoscopy and EGD 10/20. Colonoscopy showed blood in entire ilium and colon. No source found. Bleeding thought to be from small bowel or post banded ulcer. EGD showed non- bleeding post banding. -Acute Hypoxic Respiratory Failure - Resolved. Now on RA. Ambulatory -Ascites: On Lasix and spironolactone; strict low sodium diet -HE: Controlled on lactulose and xifaxin documented in this encounter Plan of Treatment Not on file documented as of this encounter Visit Diagnoses Not on filedocumented in this encounter Additional Health Concerns Infection Onset Date Last Indicated Resolved Time COVID-19 Rule-Out 11/08/2021 11/08/2021 11/08/2021 8:06 AM EDT documented as of this encounter Care Teams Crm Marketing Analyst Relationship Specialty Start Date End Date Edgar Fournier MD [facility] [place] [address] PCP - General 12/25/20 Enrique Griffith MD [address] [place] [phone] Referring Physician Nephrology 01/08/21 documented as of this encounter
--- OUTSIDE RECORDS SUMMARY | 2024-07-12 13:09 | XMS_ITS | Encounter Summary ---
Author Organization [facility] Address [address] [id number] Care Team Providers Care Remanufacturing Technician Name Role Phone Edgar Fournier MD Primary Care Provider [phone] Enrique Griffith MD Unavailable [phone] Encounter Details Date Type Department Care Team (Late st Contact Info) Description 10/14/2016 [facility] OTTR Encounter HISTORICAL OTTR [address] [place] [address] Bridgett Márquez, RN [facility] [id number] [address] [phone] Social History Tobacco Use Types Packs/Day Years Used Date Smoking Tobacco: Never Assessed Sex and Gender Information Value Date Recorded Sex Assigned at Not on file Legal Sex Male 6:10 PM EDT Gender Identity Not on file Sexual Orientation Straight 03/02/2021 10 :04 AM EDT documented as of this encounter Miscellaneous Notes * Progress Notes - Bridgett Márquez - 10/14/2016 8:13 AM EST Patient admitted to ED for active upper GI bleed. Patient intubated to protect airway. Will review with provider. documented in this encounter Plan of Treatment Not on file documented as of this encounter Procedures Procedure Name Priority Date/Time Associated Diagnosis Comments OTTR LAB RESULTS (MANUAL) Routine 10/15/2016 9:24 PM EST OTTR LAB RESULTS (MANUAL) Routine 10/15/2016 6:05 PM EST OTTR LAB RESULTS (MANUAL) Routine 10/15/2016 1:59 PM EST OTTR LAB RESULTS (MANUAL) Routine 10/15/2016 10:36 AM EST OTTR LAB RESULTS (MANUAL) Routine 10/15/2016 6:35 AM EST OTTR LAB RESULTS (MANUAL) Routine 10/15/2016 1:58 AM EST OTTR LAB RESULTS (MANUAL) Routine 10/14/2016 10:53 PM EST OTTR LAB RESULTS (MANUAL) Routine 10/14/2016 6:52 PM EST OTTR LAB RESULTS (MANUAL) Routine 10/14/2016 2:07 PM EST OTTR LAB RESULTS (MANUAL) Routine 10/14/2016 12:21 PM EST OTTR LAB RESULTS (MANUAL) Routine 10/14/2016 10:33 AM EST OTTR LAB RESULTS (MANUAL) Routine 10/14/2016 9:20 AM EST OTTR LAB RESULTS (MANUAL) Routine 10/14/2016 6:31 AM EST OTTR LAB RESULTS (MANUAL) Routine 10/14/2016 5:05 AM EST OTTR LAB RESULTS (MANUAL) Routine 10/14/2016 1:51 AM EST documented in this encounter Results * OTTR LAB RESULTS (MANUAL) (10/15/2016 9:24 PM EST) External Estimated GFR 56.45 EXTERNAL LAB 10/15/2016 9:24 PM EST Narrative EXTERNAL LAB - 10/15/2016 10:22 PM EST Automated LAB Interface Historical Provider MD LAB BLOOD ORDERABLES Yoselin l Result EXTERNAL LAB * OTTR LAB RESULTS (MANUAL) (10/15/2016 6:05 PM EST) External Estimated GFR 59.77 EXTERNAL LAB 10/15/2016 6:05 PM EST Narrative EXTERNAL LAB - 10/15/2016 6:56 PM EST Automated LAB Interface Historical Provider MD LAB BLOOD ORDERABLES Yoselin l Result EXTERNAL LAB * OTTR LAB RESULTS (MANUAL) (10/15/2016 1:59 PM EST) External Estimated GFR 58.79 EXTERNAL LAB 10/15/2016 1:59 PM EST Narrative EXTERNAL LAB - 10/15/2016 2:46 PM EST Automated LAB Interface Historical Provider MD LAB BLOOD ORDERABLES Yoselin l Result EXTERNAL LAB * OTTR LAB RESULTS (MANUAL) (10/15/2016 10:36 AM EST) External Estimated GFR 63.47 EXTERNAL LAB 10/15/2016 10:3 6 AM EST Narrative EXTERNAL LAB - 10/15/2016 11:28 AM EST Automated LAB Interface Historical Provider MD LAB BLOOD ORDERABLES Yoselin l Result EXTERNAL LAB * OTTR LAB RESULTS (MANUAL) (10/15/2016 6:35 AM EST) External Estimated GFR 56.45 EXTERNAL LAB 10/15/2016 6:35 AM EST Narrative EXTERNAL LAB - 10/15/2016 7:23 AM EST Automated LAB Interface Historical Provider MD LAB BLOOD ORDERABLES Yoselin l Result Performing Organization Address [facility] Co de Phone Number EXTERNAL LAB * OTTR LAB RESULTS (MANUAL) (10/15/2016 1:58 AM EST) External Estimated GFR 59.28 EXTERNAL LAB 10/15/2016 1:58 AM EST Narrative EXTERNAL LAB - 10/15/2016 2:52 AM EST Automated LAB Interface Historical Provider MD LAB BLOOD ORDERABLES Yoselin l Result Performing Organization Address [facility] Co de Phone Number EXTERNAL LAB * OTTR LAB RESULTS (MANUAL) (10/14/2016 10:53 PM EST) External Estimated GFR 59.77 EXTERNAL LAB 10/14/2016 10:5 3 PM EST Narrative EXTERNAL LAB - 10/14/2016 11:37 PM EST Automated LAB Interface Historical Provider MD LAB BLOOD ORDERABLES Yoselin l Result Performing Organization Address [facility] Co de Phone Number EXTERNAL LAB * OTTR LAB RESULTS (MANUAL) (10/14/2016 6:52 PM EST) External Estimated GFR 65.79 EXTERNAL LAB 10/14/2016 6:52 PM EST Narrative EXTERNAL LAB - 10/14/2016 7:44 PM EST Automated LAB Interface Historical Provider MD LAB BLOOD ORDERABLES Yoselin l Result Performing Organization Address City/[facility]/ZIP Co de Phone Number EXTERNAL LAB * OTTR LAB RESULTS (MANUAL) (10/14/2016 2:07 PM EST) External Estimated GFR 50.39 EXTERNAL LAB 10/14/2016 2:07 PM EST Narrative EXTERNAL LAB - 10/14/2016 3:44 PM EST Automated LAB Interface us Historical Provider MD LAB BLOOD ORDERABLES Yoselin l Result EXTERNAL LAB * OTTR LAB RESULTS (MANUAL) (10/14/2016 12:21 PM EST) External Estimated GFR 48.30 EXTERNAL LAB 10/14/2016 12:2 1 PM EST Narrative EXTERNAL LAB - 10/14/2016 1:33 PM EST Automated LAB Interface Historical Provider MD LAB BLOOD ORDERABLES Yoselin l Result EXTERNAL LAB * OTTR LAB RESULTS (MANUAL) (10/14/2016 10:33 AM EST) External Estimated GFR 53.47 EXTERNAL LAB 10/14/2016 10:3 3 AM EST Narrative EXTERNAL LAB - 10/14/2016 11:58 AM EST Automated LAB Interface Historical Provider MD LAB BLOOD ORDERABLES Yoselin l Result Performing Organization Address City/[facility]/ZIP Co de Phone Number EXTERNAL LAB * OTTR LAB RESULTS (MANUAL) (10/14/2016 9:20 AM EST) External Estimated GFR 57.37 EXTERNAL LAB 10/14/2016 9:20 AM EST Narrative EXTERNAL LAB - 10/14/2016 10:27 AM EST Automated LAB Interface Historical Provider MD LAB BLOOD ORDERABLES Yoselin l Result EXTERNAL LAB * OTTR LAB RESULTS (MANUAL) (10/14/2016 6:31 AM EST) External Estimated GFR 61.84 EXTERNAL LAB 10/14/2016 6:31 AM EST Narrative EXTERNAL LAB - 10/14/2016 7:46 AM EST Automated LAB Interface Historical Provider MD LAB BLOOD ORDERABLES Yoselin l Result EXTERNAL LAB * OTTR LAB RESULTS (MANUAL) (10/14/2016 5:05 AM EST) External Estimated GFR 65.79 EXTERNAL LAB 10/14/2016 5:05 AM EST Narrative EXTERNAL LAB - 10/14/2016 6:22 AM EST Automated LAB Interface Historical Provider MD LAB BLOOD ORDERABLES Yoselin l Result Performing Organization Address City/[facility]/ZIP Co de Phone Number EXTERNAL LAB * OTTR LAB RESULTS (MANUAL) (10/14/2016 1:51 AM EST) External Estimated GFR 68.26 EXTERNAL LAB 10/14/2016 1:51 AM EST Narrative EXTERNAL LAB - 10/14/2016 6:26 AM EST Automated LAB Interface Historical Provider MD LAB BLOOD ORDERABLES Yoselin l Result Performing Organization Address [facility] Co de Phone Number EXTERNAL LAB documented in this encounter Visit Diagnoses Not on filedocumented in this encounter Additional Health Concerns Infection Onset Date Last Indicated Resolved Time COVID-19 Rule-Out 11/08/2021 11/08/2021 11/08/2021 8:06 AM EDT documented as of this encounter Care Teams Remanufacturing Technician Relationship Specialty Start Date End Date Edgar Fournier MD [address] [place] [address] PCP - General 12/25/20 Enrique Griffith MD [address] [place] [phone] Referring Physician Nephrology 01/08/21 documented as of this encounter
--- OUTSIDE RECORDS SUMMARY | 2024-07-12 13:09 | XMS_ITS | Encounter Summary ---
Author Organization [facility] Address [address] [place] [address] Care Team Providers Care Brand Analyst Name Role Phone Edgar Fournier MD Primary Care Provider [phone] Enrique Griffith MD Unavailable [phone] Encounter Details Date Type Department Care Team (Late st Contact Info) Description 11/01/2016 [facility] OTTR Encounter HISTORICAL OTTR [address] [place] [address] ProviderAmrit MD [address] [place] [address] Social History Tobacco Use Types Packs/Day Years Used Date Smoking Tobacco: Never Assessed Sex and Gender Information Value Date Recorded Sex Assigned at Not on file Legal Sex Male 6:10 PM EDT Gender Identity Not on file Sexual Orientation Straight 03/02/2021 10 :04 AM EDT documented as of this encounter Miscellaneous Notes * Progress Notes - ProviderAmrit MD - 11/01/2016 3:53 PM EDT NAVNEET submitted for Xifaxan documented in this encounter Plan of Treatment Not on file documented as of this encounter Visit Diagnoses Not on filedocumented in this encounter Additional Health Concerns Infection Onset Date Last Indicated Resolved Time COVID-19 Rule-Out 11/08/2021 11/08/2021 11/08/2021 8:06 AM EDT documented as of this encounter Care Teams Brand Analyst Relationship Specialty Start Date End Date Edgra Fournier MD [address] [place] [address] PCP - General 12/25/20 Enrique Griffith MD [address] [place] [phone] Referring Physician Nephrology 01/08/21 documented as of this encounter
--- OUTSIDE RECORDS SUMMARY | 2024-07-12 13:09 | XMS_ITS | Encounter Summary ---
Author Organization [facility] Address [address] [id number] Care Team Providers Care Chief Cloth Finishing Range Operator Name Role Phone Edgar Fournier MD Primary Care Provider [phone] Enrique Griffith MD Unavailable [phone] Encounter Details Date Type Department Care Team (Late st Contact Info) Description 11/14/2016 [facility] OTTR Encounter HISTORICAL OTTR [address] [place] [address] Bridgett Márquez, RN [facility] LIVER [id number] [address] [phone] Social History Tobacco Use Types Packs/Day Years Used Date Smoking Tobacco: Never Assessed Sex and Gender Information Value Date Recorded Sex Assigned at Not on file Legal Sex Male 6:10 PM EDT Gender Identity Not on file Sexual Orientation Straight 03/02/2021 10 :04 AM EDT documented as of this encounter Miscellaneous Notes * Progress Notes - Bridgett Márquez - 11/14/2016 11:43 AM EDT Patient to RTC 12-06-16. Need to see if can schedule Dopplar US of Liver with clinic appt. If not need to schedule for 1st available. Orders in SCM, msg to AG to schedule. documented in this encounter Plan of Treatment Not on file documented as of this encounter Visit Diagnoses Not on filedocumented in this encounter Additional Health Concerns Infection Onset Date Last Indicated Resolved Time COVID-19 Rule-Out 11/08/2021 11/08/2021 11/08/2021 8:06 AM EDT documented as of this encounter Care Teams Chief Cloth Finishing Range Operator Relationship Specialty Start Date End Date Edgar Fournier MD [address] [place] [address] PCP - General 12/25/20 Enrique Griffith MD [address] [place] [phone] Referring Physician Nephrology 01/08/21 documented as of this encounter
--- OUTSIDE RECORDS SUMMARY | 2024-07-12 13:09 | XMS_ITS | Encounter Summary ---
Author Organization [facility] Address [address] [place] [address] Care Team Providers Care Project Asst Name Role Phone Edgar Fournier MD Primary Care Provider Enrique Griffith MD Unavailable [phone] Encounter Details Date Type Department Care Team (Late st Contact Info) Description 10/17/2016 [facility] OTTR Encounter HISTORICAL OTTR [address] [place] [address] Antione Romano APRN [address] [facility] [address] [place] [phone] Social History Tobacco Use Types Packs/Day Years Used Date Smoking Tobacco: Never Assessed Sex and Gender Information Value Date Recorded Sex Assigned at Not on file Legal Sex Male 6:10 PM EDT Gender Identity Not on file Sexual Orientation Straight 03/02/2021 10 :04 AM EDT documented as of this encounter Miscellaneous Notes * Progress Notes - Antione Romano - 10/17/2016 1:35 PM EST 41 y/o male with decompensated SAL Cirrhosis, hepatic encephalopathy and esophageal varices. 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 He presented to an OSH with c/o hematemesis, approximately 2L in volume. He was transfused 3U PRBCs and transferred to ICU at [facility]. On arrival he was actively vomiting blood and intubated for airway protection. The massive transfusion protocol was actiavted. He received 10U PRBC, 12 units plts and 7U FFP. On emergent EGD with GI/Hepatology evidence of eroded varices was found, 6 bands placed. HEMORRAGHIC SHOCK/BLEEDING ESOPHAGEAL VARICES: Intubated for airway protection. This morning has received multiple blood products 2' drop on H/H. Started on Levophed 2' hypotension with MAPs in the 40s. Was on Octreotide and PPI drips, now only on PPI BID. GI reconsulted. IR Dr Roche to place a TIPS 2' rebleeding today. DECOMPENSATED SAL CIRRHOSIS : MELD 22 on 10/16, listed active but will inactivate 2' concerns activebleeding, multiple blood products, on pressor, intubation, T max 100.4 on Ceftriaxone IV, CXR with concern for aspiration. Please villanueva cx to r/o active infection as well. We will make pt inactive on liver transplant list for now documented in this encounter Plan of Treatment Not on file documented as of this encounter Procedures Procedure Name Priority Date/Time Associated Diagnosis Comments OTTR LAB RESULTS (MANUAL) Routine 10/16/2016 10:28 AM EST OTTR LAB RESULTS (MANUAL) Routine 10/16/2016 5:43 AM EST OTTR LAB RESULTS (MANUAL) Routine 10/16/2016 2:04 AM EST documented in this encounter Results * OTTR LAB RESULTS (MANUAL) (10/16/2016 10:28 AM EST) External Estimated GFR 63.47 EXTERNAL LAB 10/16/2016 10:2 8 AM EST Narrative EXTERNAL LAB - 10/16/2016 11:23 AM EST Automated LAB Interface us Historical Provider LAB BLOOD ORDERABLES Yoselin l Result Performing Organization Address City/State/[facility] Co de Phone Number EXTERNAL LAB * OTTR LAB RESULTS (MANUAL) (10/16/2016 5:43 AM EST) External Estimated GFR 66.39 EXTERNAL LAB 10/16/2016 5:43 AM EST Narrative EXTERNAL LAB - 10/16/2016 6:29 AM EST Automated LAB Interface Historical Provider MD LAB BLOOD ORDERABLES Yoselin l Result Performing Organization Address [facility] Co de Phone Number EXTERNAL LAB * OTTR LAB RESULTS (MANUAL) (10/16/2016 2:04 AM EST) External Estimated GFR 58.79 EXTERNAL LAB 10/16/2016 2:04 AM EST Narrative EXTERNAL LAB - 10/16/2016 2:48 AM EST Automated LAB Interface Historical Provider MD LAB BLOOD ORDERABLES Yoselin l Result Performing Organization Address [facility] Co de Phone Number EXTERNAL LAB documented in this encounter Visit Diagnoses Not on filedocumented in this encounter Additional Health Concerns Infection Onset Date Last Indicated Resolved Time COVID-19 Rule-Out 11/08/2021 11/08/2021 11/08/2021 8:06 AM EDT documented as of this encounter Care Teams Project Asst Relationship Specialty Start Date End Date Edgar Fournier MD [address] [place] [address] PCP - General 12/25/20 Enrique Griffith MD [address] [place] [address] Referring Physician Nephrology 01/08/21 documented as of this encounter
--- OUTSIDE RECORDS SUMMARY | 2024-07-12 13:09 | XMS_ITS | Encounter Summary ---
Author Organization [facility] Address [address] [place] [address] Care Team Providers Care Legislative Advocate Name Role Phone Edgar Fournier MD Primary Care Provider [phone] Enrique Griffith MD Unavailable [phone] Encounter Details Date Type Department Care Team (Late st Contact Info) Description 10/26/2016 [facility] OTTR Encounter HISTORICAL OTTR [address] [place] [address] Sandrita Ferguson, SOFTWOOD FALLER [address] [facility] [address] [place] [address] Social History Tobacco Use Types Packs/Day Years Used Date Smoking Tobacco: Never Assessed Sex and Gender Information Value Date Recorded Sex Assigned at Not on file Legal Sex Male 6:10 PM EDT Gender Identity Not on file Sexual Orientation Straight 03/02/2021 10 :04 AM EDT documented as of this encounter Miscellaneous Notes * Progress Notes - Sandrita Ferguson - 10/26/2016 3:53 PM EDT Mr. Stauffer is a 41 y/o male with decompensated SAL Cirrhosis, hepatic encephalopathy and esophageal varices. 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 He presented to an OSH with c/o hematemesis, approximately 2L in volume. He was transfused 3U PRBCs and transferred to ICU at [facility]. On arrival he was actively vomiting blood and intubated for airway protection. The massive transfusion protocol was activated He received 10U PRBC, 12 units plts and 7U FFP. On emergent EGD with GI/Hepatology evidence of eroded varices was found, 6 bands placed. S/p TIPS 10/17. Repeat EGD and colonoscopy 10/20. DECOMPENSATED SAL CIRRHOSIS : encephalopathy, varices, ascites - Inactivated due to concerns with active bleeding, multiple blood products, pressor requirements, etc. - Pt now extubated. Passed swallow eval with mechanical soft diet and thickened liquids. - Remains on oxygen 3 liters NC. This must be weaned completely prior to reactivation on transplantlist. UGIB with hemorrhagic shock - HandH stable, s/p TIPS placement for bleeding on 10/17/16 - Further bleeding with repeat colonoscopy and EGD 10/20. Colonoscopy showed blood in entire ilium and colon. No source found. Bleeding thought to be from small bowel or post banded ulcer. EGD showed non-bleeding post banding. -Stable Fever- low grade - on Ceftriaxone 2 g for 5 days given high risk of SBP - recommend cultures if pt has another febrile episode Dysphagia - Swallow eval today w/ recs for mach soft and thickened liquids Debility - PT recommends acute rehab documented in this encounter Plan of Treatment Not on file documented as of this encounter Procedures Procedure Name Priority Date/Time Associated Diagnosis Comments OTTR LAB RESULTS (MANUAL) Routine 10/26/2016 3:42 AM EDT OTTR LAB RESULTS (MANUAL) Routine 10/26/2016 2:26 AM EDT OTTR LAB RESULTS (MANUAL) Routine 10/25/2016 4:00 AM EDT documented in this encounter Results * OTTR LAB RESULTS (MANUAL) (10/26/2016 3:42 AM EDT) External Estimated GFR 122.69 EXTERNAL LAB 10/26/2016 3:42 AM EDT Narrative EXTERNAL LAB - 10/26/2016 4:27 AM EDT Automated LAB Interface Historical Provider LAB BLOOD ORDERABLES Yoselin l Result Performing Organization Address City/[facility]/ZIP Co de Phone Number EXTERNAL LAB * OTTR LAB RESULTS (MANUAL) (10/26/2016 2:26 AM EDT) External Estimated GFR 113.78 EXTERNAL LAB 10/26/2016 2:26 AM EDT Narrative EXTERNAL LAB - 10/26/2016 3:29 AM EDT Automated LAB Interface Historical Provider LAB BLOOD ORDERABLES Yoselin l Result Performing Organization Address [facility] Co de Phone Number EXTERNAL LAB * OTTR LAB RESULTS (MANUAL) (10/25/2016 4:00 AM EDT) External Estimated GFR 99.16 EXTERNAL LAB 10/25/2016 4:00 AM EDT Narrative EXTERNAL LAB - 10/25/2016 3:16 AM EDT Automated LAB Interface Historical Provider LAB BLOOD ORDERABLES Yoselin l Result Performing Organization Address [facility] Co de Phone Number EXTERNAL LAB documented in this encounter Visit Diagnoses Not on filedocumented in this encounter Additional Health Concerns Infection Onset Date Last Indicated Resolved Time COVID-19 Rule-Out 11/08/2021 11/08/2021 11/08/2021 8:06 AM EDT documented as of this encounter Care Teams Legislative Advocate Relationship Specialty Start Date End Date Edgar Fournier MD [address] [place] [address] PCP - General 12/25/20 Enrique Griffith MD [address] [place] [phone] Referring Physician Nephrology 01/08/21 documented as of this encounter
--- OUTSIDE RECORDS SUMMARY | 2024-07-12 13:09 | XMS_ITS | Encounter Summary ---
Author Organization [facility] Address [address] [id number] Care Team Providers Care Water Meter Mechanic Name Role Phone Edgar Fournier MD Primary Care Provider [phone] Enrique Griffith MD Unavailable [phone] Encounter Details Date Type Department Care Team (Late st Contact Info) Description 11/21/2016 [facility] OTTR Encounter HISTORICAL OTTR [address] [place] [address] Bridgett Márquez, RN [facility] [id number] [address] [phone] Social History Tobacco Use Types Packs/Day Years Used Date Smoking Tobacco: Never Assessed Sex and Gender Information Value Date Recorded Sex Assigned at Not on file Legal Sex Male 6:10 PM EDT Gender Identity Not on file Sexual Orientation Straight 03/02/2021 10 :04 AM EDT documented as of this encounter Miscellaneous Notes * Progress Notes - Bridgett Márquez - 11/21/2016 11:00 AM EDT Rec'd ph call from patient. he adv he is having a lot of nasuea and pain in abdomen. [place] documented in [place] encounter Plan of Treatment Not on file documented as of this encounter Procedures Procedure Name Priority Date/Time Associated Diagnosis Comments OTTR LAB RESULTS (MANUAL) Routine 11/21/2016 2:25 PM EDT documented in this encounter Results * OTTR LAB RESULTS (MANUAL) (11/21/2016 2:25 PM EDT) External Estimated GFR 75.28 EXTERNAL LAB 11/21/2016 2:25 PM EDT Narrative EXTERNAL LAB - 11/21/2016 3:06 PM EDT Automated LAB Interface us Historical Provider LAB BLOOD ORDERABLES Yoselin robles Result EXTERNAL LAB documented in this encounter Visit Diagnoses Not on filedocumented in this encounter Additional Health Concerns Infection Onset Date Last Indicated Resolved Time COVID-19 Rule-Out 11/08/2021 11/08/2021 11/08/2021 8:06 AM EDT documented as of this encounter Care Teams Water Meter Mechanic Relationship Specialty Start Date End Date Edgar Fournier MD [address] [place] [address] PCP - General 12/25/20 Enrique Griffith MD [address] [place] [address] Referring Physician Nephrology 01/08/21 documented as of this encounter
--- OUTSIDE RECORDS SUMMARY | 2024-07-12 13:09 | XMS_ITS | Encounter Summary ---
Author Organization [facility] Address [address] [phone] Care Team Providers Care Crossbar Frame Wirer Name Role Phone Edgar Fournier MD Primary Care Provider [phone] Enrique Griffith MD Unavailable [phone] Encounter Details Date Type Department Care Team (Late st Contact Info) Description 09/22/2016 [facility] OTTR Encounter HISTORICAL OTTR [address] [place] [address] Bridgett Márquez, RN [facility] [id number] [address] [phone] Social History Tobacco Use Types Packs/Day Years Used Date Smoking Tobacco: Never Assessed Sex and Gender Information Value Date Recorded Sex Assigned at Not on file Legal Sex Male 6:10 PM EDT Gender Identity Not on file Sexual Orientation Straight 03/02/2021 10 :04 AM EDT documented as of this encounter Miscellaneous Notes * Progress Notes - Bridgett Márquez - 09/22/2016 10:39 AM EST Need update on patient. phd patient- l msg on vm. documented in this encounter Plan of Treatment Not on file documented as of this encounter Visit Diagnoses Not on filedocumented in this encounter Additional Health Concerns Infection Onset Date Last Indicated Resolved Time COVID-19 Rule-Out 11/08/2021 11/08/2021 11/08/2021 8:06 AM EDT documented as of this encounter Care Teams Crossbar Frame Wirer Relationship Specialty Start Date End Date Edgar Fournier MD [address] [place] [address] PCP - General 12/25/20 Enrique Griffith MD [address] [place] [address] Referring Physician Nephrology 01/08/21 documented as of this encounter
--- OUTSIDE RECORDS SUMMARY | 2024-07-12 13:09 | XMS_ITS | Encounter Summary ---
Author Organization [facility] Address [address] [id number] Care Team Providers Care Fishing Floats Assembler Name Role Phone Edgar Fournier MD Primary Care Provider [phone] Enrique Griffith MD Unavailable [phone] Encounter Details Date Type Department Care Team (Late st Contact Info) Description 12/06/2016 [facility] OTTR Encounter HISTORICAL OTTR [address] [place] [address] Bridgett Márquez, RN [facility] [id number] [address] [id number] Social History Tobacco Use Types Packs/Day Years Used Date Smoking Tobacco: Never Assessed Sex and Gender Information Value Date Recorded Sex Assigned at Not on file Legal Sex Male 6:10 PM EDT Gender Identity Not on file Sexual Orientation Straight 03/02/2021 10 :04 AM EDT documented as of this encounter Miscellaneous Notes * Progress Notes - Bridgett Márquez - 12/06/2016 3:19 PM EDT Phd patient-s/w Aiden, adv to stop diuretics. he understood. Will fax orders to [facility]. documented in this encounter Plan of Treatment Not on file documented as of this encounter Visit Diagnoses Not on filedocumented in this encounter Additional Health Concerns Infection Onset Date Last Indicated Resolved Time COVID-19 Rule-Out 11/08/2021 11/08/2021 11/08/2021 8:06 AM EDT documented as of this encounter Care Teams Fishing Floats Assembler Relationship Specialty Start Date End Date Edgar Fournier MD [address] [place] [address] PCP - General 12/25/20 Enrique Griffith MD [address] [place] [address] Referring Physician Nephrology 01/08/21 documented as of this encounter
--- OUTSIDE RECORDS SUMMARY | 2024-07-12 13:09 | XMS_ITS | Encounter Summary ---
Author Organization [facility] Address [address] [place] [address] Care Team Providers Care Architectural Coating Finisher Name Role Phone Edgar Fournier MD Primary Care Provider Enrique Griffith MD Unavailable [phone] Encounter Details Date Type Department Care Team (Late st Contact Info) Description 10/19/2016 [facility] OTTR Encounter HISTORICAL OTTR [address] [place] [address] Shara Huff, HOOP PUNCH AND COILER OPERATOR, DNP [address] [facility] [address] [place] [address] Social History Tobacco Use Types Packs/Day Years Used Date Smoking Tobacco: Never Assessed Sex and Gender Information Value Date Recorded Sex Assigned at Not on file Legal Sex Male 6:10 PM EDT Gender Identity Not on file Sexual Orientation Straight 03/02/2021 10 :04 AM EDT documented as of this encounter Miscellaneous Notes * Progress Notes - Shara Huff - 10/19/2016 3:54 PM EST Mr. Stauffer is a 41 y/o male with decompensated SAL Cirrhosis, hepatic encephalopathy and esophageal varices. 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 He presented to an OSH with c/o hematemesis, approximately 2L in volume. He was transfused 3U PRBCs and transferred to ICU at [facility]. On arrival he was actively vomiting blood and intubated for airway protection. The massive transfusion protocol was activated He received 10U PRBC, 12 units plts and 7U FFP. On emergent EGD with GI/Hepatology evidence of eroded varices was found, 6 bands placed. DECOMPENSATED SAL CIRRHOSIS : - Inactivated due to concerns with active bleeding, multiple blood products, pressor requirements, etc. - Will evaluate appropriateness daily for re-activation. Discussed with family. Pt will need to be extubated, tolerating a PO diet, up walking and doing ADL's, non-infected to be re-activated. To re-activate, will need CMP and INR. UGIB with hemorrhagic shock - resolved. HandH stable, s/p TIPS placement for bleeding on 10/17/16 documented in this encounter Plan of Treatment Not on file documented as of this encounter Procedures Procedure Name Priority Date/Time Associated Diagnosis Comments OTTR LAB RESULTS (MANUAL) Routine 10/19/2016 5:37 PM EST OTTR LAB RESULTS (MANUAL) Routine 10/19/2016 2:12 AM EST OTTR LAB RESULTS (MANUAL) Routine 10/18/2016 2:29 PM EST OTTR LAB RESULTS (MANUAL) Routine 10/18/2016 10:15 AM EST OTTR LAB RESULTS (MANUAL) Routine 10/18/2016 2:09 AM EST documented in this encounter Results * OTTR LAB RESULTS (MANUAL) (10/19/2016 5:37 PM EST) External Estimated GFR 74.52 EXTERNAL LAB 10/19/2016 5:37 PM EST Narrative EXTERNAL LAB - 10/19/2016 6:27 PM EST Automated LAB Interface Historical Provider MD LAB BLOOD ORDERABLES Yoselin l Result EXTERNAL LAB * OTTR LAB RESULTS (MANUAL) (10/19/2016 2:12 AM EST) External Estimated GFR 72.32 EXTERNAL LAB 10/19/2016 2:12 AM EST Narrative EXTERNAL LAB - 10/19/2016 3:07 AM EST Automated LAB Interface Historical Provider MD LAB BLOOD ORDERABLES Yoselin l Result Performing Organization Address City/[facility] Co de Phone Number EXTERNAL LAB * OTTR LAB RESULTS (MANUAL) (10/18/2016 2:29 PM EST) External Estimated GFR 72.32 EXTERNAL LAB 10/18/2016 2:29 PM EST Narrative EXTERNAL LAB - 10/18/2016 3:20 PM EST Automated LAB Interface Historical Provider MD LAB BLOOD ORDERABLES Yoselin l Result Performing Organization Address City/[facility] Co de Phone Number EXTERNAL LAB * OTTR LAB RESULTS (MANUAL) (10/18/2016 10:15 AM EST) External Estimated GFR 70.23 EXTERNAL LAB 10/18/2016 10:1 5 AM EST Narrative EXTERNAL LAB - 10/18/2016 11:08 AM EST Automated LAB Interface Historical Provider MD LAB BLOOD ORDERABLES Yoselin l Result Performing Organization Address [facility] Co de Phone Number EXTERNAL LAB * OTTR LAB RESULTS (MANUAL) (10/18/2016 2:09 AM EST) External Estimated GFR 62.92 EXTERNAL LAB 10/18/2016 2:09 AM EST Narrative EXTERNAL LAB - 10/18/2016 3:04 AM EST Automated LAB Interface Historical Provider MD LAB BLOOD ORDERABLES Yoselin l Result Performing Organization Address City/[facility]/ZIP Co de Phone Number EXTERNAL LAB documented in this encounter Visit Diagnoses Not on filedocumented in this encounter Additional Health Concerns Infection Onset Date Last Indicated Resolved Time COVID-19 Rule-Out 11/08/2021 11/08/2021 11/08/2021 8:06 AM EDT documented as of this encounter Care Teams Architectural Coating Finisher Relationship Specialty Start Date End Date Edgar Fournier MD [address] [place] [address] PCP - General 12/25/20 Enrique Griffith MD [address] [place] [address] Referring Physician Nephrology 01/08/21 documented as of this encounter
--- OUTSIDE RECORDS SUMMARY | 2024-07-12 13:09 | XMS_ITS | Encounter Summary ---
Author Organization [facility] Address [address] [id number] Care Team Providers Care Technical Service Rep Name Role Phone Edgar Fournier MD Primary Care Provider [phone] Enrique Griffith MD Unavailable [phone] Encounter Details Date Type Department Care Team (Late st Contact Info) Description 10/30/2016 [facility] OTTR Encounter HISTORICAL OTTR [address] [place] [address] Bridgett Márquez, RN [facility] [id number] [address] [phone] Social History Tobacco Use Types Packs/Day Years Used Date Smoking Tobacco: Never Assessed Sex and Gender Information Value Date Recorded Sex Assigned at Not on file Legal Sex Male 6:10 PM EDT Gender Identity Not on file Sexual Orientation Straight 03/02/2021 10 :04 AM EDT documented as of this encounter Miscellaneous Notes * Progress Notes - Bridgett Márquez - 10/30/2016 5:48 PM EDT Patient reactivated with MELD score of 16 documented in this encounter Plan of Treatment Not on file documented as of this encounter Visit Diagnoses Not on filedocumented in this encounter Additional Health Concerns Infection Onset Date Last Indicated Resolved Time COVID-19 Rule-Out 11/08/2021 11/08/2021 11/08/2021 8:06 AM EDT documented as of this encounter Care Teams Technical Service Rep Relationship Specialty Start Date End Date Edgar Fournier MD [address] [place] [address] PCP - General 12/25/20 Enrique Griffith MD [address] [place] [address] Referring Physician Nephrology 01/08/21 documented as of this encounter
--- OUTSIDE RECORDS SUMMARY | 2024-07-12 13:09 | XMS_ITS | Encounter Summary ---
Author Organization [facility] Address [address] [id number] Care Team Providers Care Gas Desulfurizer Name Role Phone Edgar Fournier MD Primary Care Provider [phone] Enrique Griffith MD Unavailable [phone] Encounter Details Date Type Department Care Team (Late st Contact Info) Description 09/27/2016 [facility] OTTR Encounter HISTORICAL OTTR [address] [place] [address] Bridgett Márquez, RN [facility] [id number] [address] [phone] Social History Tobacco Use Types Packs/Day Years Used Date Smoking Tobacco: Never Assessed Sex and Gender Information Value Date Recorded Sex Assigned at Not on file Legal Sex Male 6:10 PM EDT Gender Identity Not on file Sexual Orientation Straight 03/02/2021 10 :04 AM EDT documented as of this encounter Miscellaneous Notes * Progress Notes - Bridgett Márquez - 09/27/2016 2:42 PM EST Rec'd ph call from patient. He adv he has had abdominal pain and cramping. He was in hospital at [facility] and they transferred him to . At they determined he was getting better and sent him home. Patient still has a lot of abdominal pain, and does not know what to do. When patient admitted to [facility] ED his ammonia level was 170, but when transferred to went down to 102. Willreview with AG. documented in this encounter Plan of Treatment Not on file documented as of this encounter Procedures Procedure Name Priority Date/Time Associated Diagnosis Comments OTTR LAB RESULTS (MANUAL) Routine 09/26/2016 7:46 AM EST documented in this encounter Results * OTTR LAB RESULTS (MANUAL) (09/26/2016 7:46 AM EST) External Estimated GFR 83.77 EXTERNAL LAB 09/26/2016 7:46 AM EST Narrative EXTERNAL LAB - 09/26/2016 8:49 AM EST Automated LAB Interface us Historical Provider LAB BLOOD ORDERABLES Yoselin l Result EXTERNAL LAB documented in this encounter Visit Diagnoses Not on filedocumented in this encounter Additional Health Concerns Infection Onset Date Last Indicated Resolved Time COVID-19 Rule-Out 11/08/2021 11/08/2021 11/08/2021 8:06 AM EDT documented as of this encounter Care Teams Gas Desulfurizer Relationship Specialty Start Date End Date Edgar Fournier MD [address] [place] [address] PCP - General 12/25/20 Enrique Griffith MD [address] [place] [address] Referring Physician Nephrology 01/08/21 documented as of this encounter
--- OUTSIDE RECORDS SUMMARY | 2024-07-12 13:09 | XMS_ITS | Encounter Summary ---
Author Organization [facility] Address [address] [place] [address] Care Team Providers Care Pca Name Role Phone Edgar Fournier MD Primary Care Provider [phone] Enrique Griffith MD Unavailable [phone] Encounter Details Date Type Department Care Team (Late st Contact Info) Description 10/13/2016 [facility] OTTR Encounter HISTORICAL OTTR [address] [place] [address] Nataly Masterson RN [facility] Social History Tobacco Use Types Packs/Day Years Used Date Smoking Tobacco: Never Assessed Sex and Gender Information Value Date Recorded Sex Assigned at Not on file Legal Sex Male 6:10 PM EDT Gender Identity Not on file Sexual Orientation Straight 03/02/2021 10 :04 AM EDT documented as of this encounter Miscellaneous Notes * Progress Notes - Nataly Masterson - 10/13/2016 11:25 PM EST Rcvd call from pt who reports he is vomiting blood. Instructed to report to closest ER immediately.He verbalized understanding. He plans to call ambulance which will transport him to local ER then request transfer to . documented in this encounter Plan of Treatment Not on file documented as of this encounter Visit Diagnoses Not on filedocumented in this encounter Additional Health Concerns Infection Onset Date Last Indicated Resolved Time COVID-19 Rule-Out 11/08/2021 11/08/2021 11/08/2021 8:06 AM EDT documented as of this encounter Care Teams Pca Relationship Specialty Start Date End Date Edgar Fournier MD [address] [place] [address] PCP - General 12/25/20 Enrique Griffith MD [address] [place] [address] Referring Physician Nephrology 01/08/21 documented as of this encounter
--- OUTSIDE RECORDS SUMMARY | 2024-07-12 13:09 | XMS_ITS | Encounter Summary ---
Author Organization [facility] Address [address] [id number] Care Team Providers Care Private Security Guard Name Role Phone Edgar Fournier MD Primary Care Provider Enrique Griffith MD Unavailable [phone] Encounter Details Date Type Department Care Team (Late st Contact Info) Description 09/27/2016 [facility] OTTR Encounter HISTORICAL OTTR [address] [place] [address] Bridgett Márqeuz, RN [facility] [id number] [address] [phone] Social History Tobacco Use Types Packs/Day Years Used Date Smoking Tobacco: Never Assessed Sex and Gender Information Value Date Recorded Sex Assigned at Not on file Legal Sex Male 6:10 PM EDT Gender Identity Not on file Sexual Orientation Straight 03/02/2021 10 :04 AM EDT documented as of this encounter Miscellaneous Notes * Progress Notes - Bridgett Márquez - 09/27/2016 1:57 PM EST Rec'd ph call from Jenny at Dr. Chauhan office. She scheduled patient EGD for 10-07-16 at 8:00, andasked that I fax over copy of last labs and office notes to [phone]. Will do same. documented in this encounter Plan of Treatment Not on file documented as of this encounter Visit Diagnoses Not on filedocumented in this encounter Additional Health Concerns Infection Onset Date Last Indicated Resolved Time COVID-19 Rule-Out 11/08/2021 11/08/2021 11/08/2021 8:06 AM EDT documented as of this encounter Care Teams Private Security Guard Relationship Specialty Start Date End Date Edgar Fournier MD [address] [place] [address] PCP - General 12/25/20 Enrique Griffith MD [address] [place] [address] Referring Physician Nephrology 01/08/21 documented as of this encounter
--- OUTSIDE RECORDS SUMMARY | 2024-07-12 13:09 | XMS_ITS | Encounter Summary ---
Author Organization [facility] Address [address] [place] [address] Care Team Providers Care Sharepoint Administrator Name Role Phone Edgar Fournier MD Primary Care Provider [phone] Enrique Griffith MD Unavailable [phone] Encounter Details Date Type Department Care Team (Late st Contact Info) Description 10/14/2016 [facility] OTTR Encounter HISTORICAL OTTR [address] [place] [address] Shara Huff, INTERNAL MEDICINE DOCTOR, DNP [address] [facility] [address] [place] [address] Social History Tobacco Use Types Packs/Day Years Used Date Smoking Tobacco: Never Assessed Sex and Gender Information Value Date Recorded Sex Assigned at Not on file Legal Sex Male 6:10 PM EDT Gender Identity Not on file Sexual Orientation Straight 03/02/2021 10 :04 AM EDT documented as of this encounter Miscellaneous Notes * Progress Notes - Shara Huff - 10/14/2016 4:41 PM EST Mr Stauffer is a 41 YO WM with a HX of SAL Cirrhosis and Gilbert's syndrome. He is decompensated with + HE (on lactulose and rifaxmin), EV without history of bleeding until this admission. Pt transferred for large volume hematemesis, EGD with erosive EV, banded x 6. He presented to an OSH with c/o hematemesis, approximately 2L in volume. He was transfused 3U PRBCsand transferred to ICU at [facility]. On arrival he was actively vomiting blood and intubated for airway protection. The massive transfusion protocol was actiavted. He received 10U PRBC, 12 units plts and 7U FFP. On emergent EGD with GI/Hepatology evidence of eroded varices was found, 6 bands placed. - Pt to remain ACTIVE on the transplant list at this time, case to be reviewed daily. - Recommend Hepatology consult for management of cirrhosis - Recommend repeat MRI Abdomen if possible for HCC and Splenic aneurysm surveillance when pt is stable. Pt was to have this done in October 2016. - MELD score elevated due to dialysis 2/2 hyperkalemia, likely from multiple transfusions. Listed at 18. documented in this encounter Plan of Treatment Not on file documented as of this encounter Visit Diagnoses Not on filedocumented in this encounter Additional Health Concerns Infection Onset Date Last Indicated Resolved Time COVID-19 Rule-Out 11/08/2021 11/08/2021 11/08/2021 8:06 AM EDT documented as of this encounter Care Teams Sharepoint Administrator Relationship Specialty Start Date End Date Edgar Fournier MD [address] [place] [address] PCP - General 12/25/20 Enrique Griffith MD [address] [place] [address] Referring Physician Nephrology 01/08/21 documented as of this encounter
--- OUTSIDE RECORDS SUMMARY | 2024-07-12 13:09 | XMS_ITS | Encounter Summary ---
Author Organization [facility] Address [address] [id number] Care Team Providers Care Automatic Mounter Name Role Phone Edgar Fournier MD Primary Care Provider [phone] Enrique Griffith MD Unavailable [phone] Encounter Details Date Type Department Care Team (Late st Contact Info) Description 11/22/2016 Legacy OTTR Encounter HISTORICAL OTTR [address] [place] [address] Bridgett Márquez, RN [facility] [id number] [address] [phone] Social History Tobacco Use Types Packs/Day Years Used Date Smoking Tobacco: Never Assessed Sex and Gender Information Value Date Recorded Sex Assigned at Not on file Legal Sex Male 6:10 PM EDT Gender Identity Not on file Sexual Orientation Straight 03/02/2021 10 :04 AM EDT documented as of this encounter Miscellaneous Notes * Progress Notes - Bridgett Márquez - 11/22/2016 8:09 AM EDT Patient admitted to ED for abdominal pain and nasuea. Working up patient for SBP and UTI. MELD score 24, patient is active and listed. documented in this encounter Plan of Treatment Not on file documented as of this encounter Procedures Procedure Name Priority Date/Time Associated Diagnosis Comments OTTR LAB RESULTS (MANUAL) Routine 11/22/2016 5:18 AM EDT documented in this encounter Results * OTTR LAB RESULTS (MANUAL) (11/22/2016 5:18 AM EDT) External Estimated GFR 83.77 EXTERNAL LAB 11/22/2016 5:18 AM EDT Narrative EXTERNAL LAB - 11/22/2016 5:50 AM EDT Automated LAB Interface us Historical Provider LAB BLOOD ORDERABLES Yoselin robles Result EXTERNAL LAB documented in this encounter Visit Diagnoses Not on filedocumented in this encounter Additional Health Concerns Infection Onset Date Last Indicated Resolved Time COVID-19 Rule-Out 11/08/2021 11/08/2021 11/08/2021 8:06 AM EDT documented as of this encounter Care Teams Automatic Mounter Relationship Specialty Start Date End Date Edgar Fournier MD [address] [place] [address] PCP - General 12/25/20 Enrique Griffith MD [address] [place] [address] Referring Physician Nephrology 01/08/21 documented as of this encounter
--- OUTSIDE RECORDS SUMMARY | 2024-07-12 13:09 | XMS_ITS | Encounter Summary ---
Author Organization [facility] Address [address] [place] [address] Care Team Providers Care Shellfish Checker Name Role Phone Edgar Fournier MD Primary Care Provider [phone] Enrique Griffith MD Unavailable [phone] Encounter Details Date Type Department Care Team (Late st Contact Info) Description 12/06/2016 Legacy OTTR Encounter HISTORICAL OTTR [address] [place] [address] George November Harish [facility] [address] [place] [address] Social History Tobacco Use Types Packs/Day Years Used Date Smoking Tobacco: Never Assessed Sex and Gender Information Value Date Recorded Sex Assigned at Not on file Legal Sex Male 6:10 PM EDT Gender Identity Not on file Sexual Orientation Straight 03/02/2021 10 :04 AM EDT documented as of this encounter Miscellaneous Notes * Progress Notes - George November - 12/06/2016 3:30 PM EDT Patient scheduled for modified barium swallow on 12/13 arriving at 3:00pm to [facility].No prep needed. [facility] to notify patient. documented in this encounter Plan of Treatment Not on file documented as of this encounter Visit Diagnoses Not on filedocumented in this encounter Additional Health Concerns Infection Onset Date Last Indicated Resolved Time COVID-19 Rule-Out 11/08/2021 11/08/2021 11/08/2021 8:06 AM EDT documented as of this encounter Care Teams Shellfish Checker Relationship Specialty Start Date End Date Edgar Fournier MD [address] [place] [address] PCP - General 12/25/20 Enrique Griffith MD [address] [place] [address] Referring Physician Nephrology 01/08/21 documented as of this encounter
--- OUTSIDE RECORDS SUMMARY | 2024-07-12 13:09 | XMS_ITS | Encounter Summary ---
Author Organization [facility] Address [address] [phone] Care Team Providers Care Paper Pattern Folder Name Role Phone Edgar Fournier MD Primary Care Provider [phone] Enrique Griffith MD Unavailable [phone] Encounter Details Date Type Department Care Team (Late st Contact Info) Description 09/22/2016 Legacy OTTR Encounter HISTORICAL OTTR [address] [place] [address] Bridgett Márquez, RN [facility] [id number] [address] [phone] Social History Tobacco Use Types Packs/Day Years Used Date Smoking Tobacco: Never Assessed Sex and Gender Information Value Date Recorded Sex Assigned at Not on file Legal Sex Male 6:10 PM EDT Gender Identity Not on file Sexual Orientation Straight 03/02/2021 10 :04 AM EDT documented as of this encounter Miscellaneous Notes * Progress Notes - Bridgett Márquez - 09/22/2016 11:49 AM EST Rec'd ph call from Aiden. He adv he was d/c from hospital. He was treated with antibiotics and fluids. Will obtain records from [facility] Patient also needs to have repeat EGD NIELS. PHd Dr. Chauhan [phone]- l msg with rotary engine assembler. documented in this encounter Plan of Treatment Not on file documented as of this encounter Visit Diagnoses Not on filedocumented in this encounter Additional Health Concerns Infection Onset Date Last Indicated Resolved Time COVID-19 Rule-Out 11/08/2021 11/08/2021 11/08/2021 8:06 AM EDT documented as of this encounter Care Teams Paper Pattern Folder Relationship Specialty Start Date End Date Edgar Fournier MD [address] [place] [address] PCP - General 12/25/20 Enrique Griffith MD [address] [place] [address] Referring Physician Nephrology 01/08/21 documented as of this encounter
--- OUTSIDE RECORDS SUMMARY | 2024-07-12 13:10 | XMS_ITS ---
Author Organization [facility] Address [address] [place] [address] Care Team Providers Care Machine Buffer Name Role Phone Edgar Fournier MD Primary Care Provider [phone] Enrique Griffith MD Unavailable [phone] Transplant Episode Kidney Candidate [facility] ([place], [place]) [facility] Evaluation began on 02/04/2021 Marked as Active on 02/04/2021 Reason: Undergoing Evaluation Testing Kidney CoordinatorZion Virgen RN Phone: N/A Fax: N/A Email: N/A Scores Score Value Updated Exceptions/Reas ons CPRA Not available EPTS (Calc) 76 07/12/2024 [place] Organ Diagnosis Organ Primary Contributory Kidney Diabetes Mellitus - Type II Care Team Name Role Phone Fax Email Zion Virgen RN Kidney Coordinator N/A N/A N/A Jocelyn Conway Reinsurance Claims Analyst N/A N/A N/A Enrique Millan MD Referring Physician N/A N/A N/A Events Pre-Transplant Referred: 01/08/2021 Evaluation began: 02/04/2021 Committee: 02/03/2021 Dialysis History Dialysis History Start End Type [facility] 01/16/2023 [facility] 09/26/2019 Hemo [facility] Dialysis Center Information Center Phone Fax Address [facility] [phone] [facility] [address] [facility] [address] [facility] [phone] [address] [facility] [id number]
--- OUTSIDE RECORDS SUMMARY | 2024-07-12 13:10 | XMS_ITS | Encounter Summary ---
Author Organization [facility] Address [address] [place] [address] Care Team Providers Care Transportation Maintenance Operator Name Role Phone Unavailable Primary Care Provider Unavailabl e Encounter Details Date Type Department Care Team (Late st Contact Info) Description 02/03/2016 Legacy AEHR Vitals Encounter [facility] OUTPATIENT CONVERSIONS [address] [place] [address] Provider, MD mArit [address] [place] [address] Social History Tobacco Use Types Packs/Day [...] - Inhaled Oxygen Concentration - - Weight 109 kg (240 lb 3.1 oz) 02/03/2016 3:35 PM EDT Height - - Body Mass Index 37.62 12/09/2015 2:14 PM EDT documented in this encounter Plan of Treatment Not on file documented as of this encounter Visit Diagnoses Not on filedocumented in this encounter
--- OUTSIDE RECORDS SUMMARY | 2024-07-12 13:10 | XMS_ITS | Encounter Summary ---
Author Organization [facility] Address [address] [place] [address] Care Team Providers Care Building Construction Foreman Name Role Phone Unavailable Primary Care Provider Unavailabl e Encounter Details Date Type Department Care Team (Late st Contact Info) Description 04/13/2016 Legacy AEHR Vitals Encounter [facility] OUTPATIENT CONVERSIONS [address] [place] [address] Provider, MD Amrit [address] [place] [address] Social History Tobacco Use Types Packs/Day [...] - Inhaled Oxygen Concentration - - Weight 111 kg (245 lb) 04/13/2016 9:47 AM EDT Height 170.2 cm (5' 7 ) 04/13/2016 9:47 AM EDT Body Mass Index 38.37 04/13/2016 9:47 AM EDT documented in this encounter Plan of Treatment Not on file documented as of this encounter Visit Diagnoses Not on filedocumented in this encounter
--- OUTSIDE RECORDS SUMMARY | 2024-07-12 13:10 | XMS_ITS | Encounter Summary ---
Author Organization [facility] Address [address] [place] [address] Care Team Providers Care It Training Specialist Name Role Phone Unavailable Primary Care Provider Unavailabl e Encounter Details Date Type Department Care Team (Late st Contact Info) Description 10/08/2015 Legacy AEHR Vitals Encounter [facility] OUTPATIENT CONVERSIONS [address] [place] [address] Provider, MD Amrit [address] [place] [address] Social History Tobacco Use Types Packs/Day [...] Weight 109 kg (240 lb 3.1 oz) 10/08/2015 2:02 PM EST Height 170.2 cm (5' 7 ) 10/08/2015 2:02 PM EST Body Mass Index 37.62 10/08/2015 2:02 PM EST documented in this encounter Plan of Treatment Not on file documented as of this encounter Visit Diagnoses Not on filedocumented in this encounter
--- OUTSIDE RECORDS SUMMARY | 2024-07-12 13:10 | XMS_ITS | Encounter Summary ---
Author Organization [facility] Address [address] [place] [address] Care Team Providers Care Automatic Fabric Cutter Name Role Phone Unavailable Primary Care Provider Unavailabl e Encounter Details Date Type Department Care Team (Late st Contact Info) Description 10/25/2012 Legacy AEHR Vitals Encounter [facility] OUTPATIENT CONVERSIONS [address] [place] [address] Provider, MD Amrit [address] [place] [address] Social History Tobacco Use Types Packs/Day [...] - Inhaled Oxygen Concentration - - Weight 121 kg (267 lb) 10/25/2012 8:45 AM EDT Height 170.2 cm (5' 7 ) 10/25/2012 8:45 AM EDT Body Mass Index 41.82 10/25/2012 8:45 AM EDT documented in this encounter Plan of Treatment Not on file documented as of this encounter Visit Diagnoses Not on filedocumented in this encounter
--- OUTSIDE RECORDS SUMMARY | 2024-07-12 13:10 | XMS_ITS | Encounter Summary ---
Author Organization [facility] Address [address] [place] [address] Care Team Providers Care Glass Lathe Operator Name Role Phone Unavailable Primary Care Provider Unavailabl e Encounter Details Date Type Department Care Team (Late st Contact Info) Description 12/24/2012 Legacy AEHR Vitals Encounter [facility] OUTPATIENT CONVERSIONS [address] [place] [address] Provider, MD Amrit [address] [place] [address] Social History Tobacco Use Types Packs/Day [...] - Inhaled Oxygen Concentration - - Weight 119 kg (263 lb 0.1 oz) 12/24/2012 9:16 AM EDT Height 170.2 cm (5' 7 ) 12/24/2012 9:16 AM EDT Body Mass Index 41.19 12/24/2012 9:16 AM EDT documented in this encounter Plan of Treatment Not on file documented as of this encounter Visit Diagnoses Not on filedocumented in this encounter
--- OUTSIDE RECORDS SUMMARY | 2024-07-12 13:10 | XMS_ITS ---
Author Organization [facility] Address [address] [place] [address] Care Team Providers Care Supervisor Research Shop Name Role Phone Edgar Fournier MD Primary Care Provider [phone] Enrique Griffith MD Unavailable [phone] Transplant Episode Liver Recipient [facility] ([place], [place]) - [facility] Transplanted on 10/09/2017 Marked as Not Followed on 03/12/2020 Reason: Patient Choice Liver CoordinatorBridgett Márquez RN Phone: N/A Fax: N/A Email: N/A Transplanted Elsewhere: [facility] ([place], [place]) - [facility] Coordinator: Phone: Fax: [email or web address] Organ Diagnosis Organ Primary Contributory Liver Cirrhosis: Fatty Liver ([facility]) Care Team Name Role Phone Fax Email Bridgett Márquez RN Liver Coordinator N/A N/A N/A Edgar Fournier MD Referring Physician N/A N/A N/A Dana Cabezas Front Load Trash Truck Driver N/A N/A N/A Events Post-Transplant Pre-Transplant Transplanted: 10/09/2017 Referred: 04/13/2016 Evaluation began: 04/25/2016 Center waitlisted: 6 Dialysis History Dialysis History Start End Type Comments Center 01/16/2023 [facility] 09/26/2019 Hemo MWF [facility] Dialysis Center Information Center Phone Fax Address [facility] [phone] [facility] [address] [facility] [address] [facility] [phone] [address] [facility] [address]
--- OUTSIDE RECORDS SUMMARY | 2024-07-12 13:10 | XMS_ITS | Encounter Summary ---
Author Organization [facility] Address [address] [place] [address] Care Team Providers Care General Operations Agent Name Role Phone Unavailable Primary Care Provider Unavailabl e Encounter Details Date Type Department Care Team (Late st Contact Info) Description 06/02/2014 Legacy AEHR Vitals Encounter [facility] OUTPATIENT CONVERSIONS [address] [place] [address] Provider, MD Amrit [address] [place] [address] Social History Tobacco Use Types Packs/Day [...] - Inhaled Oxygen Concentration - - Weight 118 kg (260 lb 0.2 oz) 06/02/2014 9:58 AM EDT Height 170.2 cm (5' 7 ) 06/02/2014 9:58 AM EDT Body Mass Index 40.72 06/02/2014 9:58 AM EDT documented in this encounter Plan of Treatment Not on file documented as of this encounter Visit Diagnoses Not on filedocumented in this encounter
--- OUTSIDE RECORDS SUMMARY | 2024-07-12 13:10 | XMS_ITS | Encounter Summary ---
Author Organization [facility] Address [address] [place] [address] Care Team Providers Care Accounting Clerks Supervisor Name Role Phone Unavailable Primary Care Provider Unavailabl e Encounter Details Date Type Department Care Team (Late st Contact Info) Description 12/09/2015 Legacy AEHR Vitals Encounter [facility] OUTPATIENT CONVERSIONS [address] [place] [address] Provider, MD Amrit [address] [place] [address] Social History Tobacco Use Types Packs/Day [...] - Inhaled Oxygen Concentration - - Weight 124 kg (272 lb 12.8 oz) 12/09/2015 2:14 P M EDT Height 170.2 cm (5' 7 ) 12/09/2015 2:14 PM EDT Body Mass Index 42.73 12/09/2015 2:14 PM EDT documented in this encounter Plan of Treatment Not on file documented as of this encounter Visit Diagnoses Not on filedocumented in this encounter
--- OUTSIDE RECORDS SUMMARY | 2024-07-12 13:10 | XMS_ITS | Data Portability ---
Author Organization [facility] [place] [facility] [place] ADMIN Address [address] [place] [address] Care Team Providers Care Voice Over Artist Name Role Phone ONESIMO GARCIA Primary Care Provider Assessment Encounter Date Assessment Date Assessment LastModified by Organization Details LastModified Time 07/24/2023 07/24/2023 The patient is a 48 year old male referred to [facility] by [facility] for management of peripheral neuropathy. The patient is an insulin dependent diabetic. The patient denies anti-coagulation, and smoking. 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 The patient has a history of emergency laminectomy which resulted in vertebral osteomyelitis in 2019 , which he received IV antibiotics for. The patient presents to the clinic today for establishment of care. The patient complains of pain in the low back, as well as bilateral lower extremities and feet. He notes his worst pain is the neuropathy in his bilateral legs. He describes this pain as pins/needles, numbness, tingling, and burning, and has experienced this pain for the last 15 years. The pain has progressively worsened over the last month. The patient notes he was previously prescribed Gabapentin 3200mg daily, but due to kidney disease he is now taking 400mg daily (prescribed through another provider). Based on history and physical examination, I believe this patient's pain is associated with painful diabetic neuropathy. I think the patient is a good candidate for DRG therapy, as their multi-modal pain has been refractory to conservative, pharmacologic, interventional, and surgical approaches. The patient has attempted to make lifestyle modifications, but pain continues to impede performing ADLs, thereby negatively affecting quality of life. I had a detailed discussion with the patient regarding the procedure and the risks/benefits. I gave the patient a brochure about DRG Therapy. The patient is interested in pursuing, so I will proceed with beginning the workup for DRG X4 lead (bilateral L5 and S1) workup. I will order a lumbar x ray and lumbar MRI (with contrast today) to assess the overall bony architecture of the lumbar spine, and for appropriate spacing for DRG lead placement. I will review this imaging prior to interventional procedures. I will send a referral to a Pain Psychologist to asses appropriateness for DRG Therapy. I will send a referral to Neurology for EMG/Nerve conduction study of bilateral lower extremities. I will also request ALIYAH/Nerve conduction study results from [facility]. Due to this patient's history of vertebral osteomyelitis, I will request clearance from Infectious Disease prior to proceeding with DRG trial. * Order: Lumbar X Ray and Lumbar MRI with contrast * Refer: Neurologist (EMG) and Pain Psych * Request: EMG from [facility] * Follow Up: 4 weeks * Plan: DRG x4 Lead (Bilateral L5 and S1); Need clearance from ID due to history of vertebral osteomyelitis ------- I have discussed in great detail our potential treatment options which would include a rehabilitative approach to care. This program would include medication management, Physical Therapy, consideration for interventional procedures as appropriate, and lifestyle modification (diet, weight loss, exercise, smoking/tobacco cessation, holistic approach including meditation and yoga). The patient understands and agrees prior to proceeding with this plan. _ __ __ __ __ __ __ __ __ __ __ __ __ __ __ __ __ __ __ __ __ __ __ __ __ __ __ __ _ RECORDS REVIEW: As per clinic policy, we will have the patient sign a release to obtain previous imaging and clinical notes. _ __ __ __ __ __ __ __ __ __ __ __ __ __ __ __ __ __ __ __ __ __ __ __ __ __ __ __ _ PSYCH: Pain affecting Neuro-psych behavior was discussed. Discussed about pain psychological counseling as a part of the multimodal approach to pain treatment. _ __ __ __ __ __ __ __ __ __ __ __ __ __ __ __ __ __ __ __ __ __ __ __ __ __ __ __ _ REHABILITATION: Discussed with the patient the importance of diet, daily physical activity and PT. Discussed with the patient the need to be scheduled for physical therapy since physical therapy will prolong the benefits of the procedure and interventions. _ __ __ __ __ __ __ __ __ __ __ __ __ __ __ __ __ __ __ __ __ __ __ __ __ __ __ __ _ SHAKILA: [id number] I have reviewed patient's SHAKILA report prior to prescribing Schedule II, III, and IV medications that require review by law. [email or web address] Not available 07/24/2023 17:39:08 Plan of Treatment Reminders Order Date Submit Date Provider Last Modified By Organization Details Last Modified Time Details Appointments None recorded. Lab C-reactiv e protein, quantitat leigh, serum or plasma 2023 [facility]24 [email or web address], [address], [address], [place], [address], 4 07:17:43 ESR (erythroc yte sedimenta tion rate), blood 2023 024 [email or web address] [facility], [address], [place], [address], 4 07:17:44 HbA1c (hemoglob in A1c), blood 2023 024 [email or web address] [facility], [address], [facility] [address], [place], [address], 4 07:17:[address] referral - BLE EMG/Nerve study; Starting work up for neuromodu lation trial 2022 023 [email or web address] Erika Wood DO, [address] [facility], [place], [address], 4 10:01:18 CLINICAL HEALTH PSYCHOLOG Y/PAIN PSYCHOLOG Y REFERRAL - Assess candidacy for DRG Therapy 2022 023 [email or web address] [facility], [address], [place], [address], 4 09:43:54 Procedures nerve conductio n study/EMG , lower extremity (PROC) 2022 023 [email or web address] Not available 3 12:46:47 Surgeries None recorded. Imaging XR, lumbar spine 2022 023 martell [facility] (Registration ), [address], [place], [address], 3 16:14:51 MRI, lumbar spine, w/ contrast - Assess epidural space and overall bony network design architect ure due to history of laminecto my prior to neuromodu lation trial. 2022 023 [email or web address] [facility] (Registration ), [address], [place], [address], 4 13:13:10 Medication Orders None recorded. Patient TargetsNo targets recorded. Patient InstructionsNo instructions recorded. Reason for Referral Neurologist Referral for Chr onic painful neuropathy due to diabetes mellitus BLE EMG/Nerve study; Starting work up for neuromodulation trial Referring Physician: Christine Covington, Pain Management, Encounter Date: 07/24/2023 CLINICAL HEALTH PSYCHOLOGY/P AIN PSYCHOLOGY REFERRAL for Chronic painful neuropathy due to diabetes mellitus Assess candidacy for DRG Therapy Referring Physician: Christine Covington, Pain Management, Encounter Date: 07/24/2023 Results Created Date Observation Date Name Description Value Unit Range Abnormal Flag Note LastModifiedBy Organization Detail LastModifiedTime 07/25/20 23 07/24/2023 lumba r spine 2 to 3V [facility] [address] [place] [address] Phone: Fax: Name: LEONCIO ROLLINS Exam Date: 2022 : 974 Age 48 Gender : M Access ion: [id number] Physic nelson: CHRISTINE SANTACRUZ Facili ty: [facility] Facili ty HSV: Outpat ient Exam: LUMBAR SPINE 2 TO 3V LUMBAR SPINE, 3 VIEWS HISTOR Y: Chroni c low back pain, preope rative for pain pump placem ent. FINDIN GS: There are postop erativ e change s relate d to prior L5 thee ctomy. There are persis tent severe degene rative change s of the L5-S1 disc space with L5-S1 endpla te sclero sis. There is a mild chroni c compre ssion fractu re of L5 again noted. There is straig htenin g of the lumbar spine. Verteb ral endpla te alignm ent is mainta ined. There is modera te lumbar spine facet degene rative change at multip le levels . No acute fractu re is identi fied. IMPRES DELFINA: Persis tent severe L5-S1 degene rative disc diseas e with endpla te sclero sis, may reflec t Modic change s of the endpla te with osteom yeliti s in the differ ential diagno sis. The films were review ed, interp reted, and dictat ed by Dr. Sanket Ahmadi Transc ribed by Corby Garcia PA-C Dictat ed By: Sanket Larkin Transc ribed By: Sanket Ahmadi Transc ribed On: 2022 9:01 AM Electr onical ly signed by: Sanket Larkin 2022 Thank you for referr LEONCIO Ndiaye to [facility]. Legall y authbryce jeffate d by NANCY NUÑEZ 2022-08 09:01: 55 CC'ed Logic: Orderi ng Provid er: MICHAEL KING Attend ing Provid er: MICHAEL KING Admitt ing Provid er: MICHAEL KING [facility] - Physical Therapy [address] [facility], [place], [address], 07/26/2023 09:27:55 09/11/19 24 01/01/2018 imagi ng/di agnos tic resul t No observ ation record ed. [facility] [address], [place], [address], 10/16/2023 10:03:38 09/26/19 24 01/01/2018 imagi ng/di agnos tic resul t No observ ation record ed. [email or web address] [facility] [address], [place], [address], 10/16/2023 10:04:53 10/09/19 24 01/01/2018 nerve condu ction study No observ ation record ed. [email or web address] [facility] [address], [place], [address], 10/25/2023 08:29:16 Result Notes None recorded. Problems Name Problem SNOMED Code Status Onset Date Resolution Date Notes Provider Name and Address Organization Details Recorded Time Chronic kidney disease stage 5 due to hypertens ion 92035319708 9100 Active 2019 Not Available [facility] 2 11:42:26 Patient encounter status 995901044 Active 2021 Not Available [facility] 2 11:42:26 Chronic renal failure 08847849 Active 2017 Chronic renal failure Not Available [facility] 2 11:42:26 Mixed conductiv e and sensorine ural hearing loss, bilateral 470775490 Active 2019 Not Available [facility] 2 11:42:27 Abdominal pain 34719153 Active 2014 Not Available [facility] 2 11:42:27 Blood in urine 55766464 Active 2017 Hematuria Not Available [facility] 2 11:42:27 Iron deficienc y anemia 39743487 Active 2019 Not Available [facility] 2 11:42:27 Dependenc e on renal dialysis 830427975 Active 2019 Not Available [facility] 2 11:42:27 Obstructi ve sleep apnea syndrome 34331411 Active 2019 Not Available [facility] 2 11:42:27 History of liver recipient 718074348 Active 2021 Not Available [facility] 2 11:42:27 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 Active 2019 Not Available [facility] 3 13:54:09 Cirrhosis - non-alcoh olic 137456677 Active 2014 Not Available [facility] 2 11:42:27 Type 2 diabetes mellitus 60709285 Active 2019 Not Available [facility] 2 11:42:27 End-stage renal disease 58321294 Active 2019 Not Available [facility] 2 11:42:27 Esophagea l varices without bleeding 99481842 Active 2019 Not Available [facility] 2 11:42:27 Benign prostatic hyperplas ia 275835458 Active 2017 Benign prostatic hyperplas ia Not Available [facility] 2 11:42:28 Morbid obesity 026510005 Active 2019 Not Available [facility] 2 11:42:28 Impotence of organic origin Active 2017 Impotence of organic origin Not Available [facility] 3 13:54:08 History of colitis 726215439 Active 2014 Not Available [facility] 2 11:42:28 Dysphagia 99020212 Active 2014 Not Available [facility] 2 11:42:28 Sensorine ural hearing loss 98178665 Active 2022 ANASTACIA REDDY, AUD [address], [place], [address] , [place] [facility] [place] [facility] [place] 3 10:52:33 Paresthes ia of lower extremity 085810548 Active 2022 Erika Israel DO [address], [place], [address] , [place] [facility] [place] [facility] [place] 3 12:46:39 Diabetic periphera l neuropath y 720870264 Active 2023 Erika Wood DO [address], [place], [address] , [place] [facility] [place] [facility] [place] 4 12:01:21 Notes:Some problems listed i n Document: #[id number] could not be added to this patient's chart. Please review this document and add these problems to the patient's chart manually as needed. Problem Notes None recorded. Procedures Surgical History Date Name Laterality Status Provider Name and Address Organization Details Recorded Time 08/10/20 23 EMG/ Nerve Conduction Study completed Erikakena Wood DO [address], [place], [address], [place] [facility] [place] [facility] [place] 08/10/2023 12:46:28 08/14/19 22 open reduction of fracture with internal fixation completed Nadya Dalla [place] [facility] [place] 01/31/2024 11:45:02 08/14/19 21 Back Surgery completed Nadya Dalla [place] [facility] [place] 01/31/2024 11:45:24 08/14/19 18 Abdominal Surgery completed Nadya Dalla [place] [facility] [place] 01/31/2024 11:39:01 Fistula cannulation carlita leary completed Nadya Dalla [place] [facility] [place] 01/31/2024 11:46:01 Imaging Results Imaging Date Name Status LastModified by Organiz atkorina Details LastModified Time 07/24/2023 lumbar spine 2 to 3V completed [email or web address] [place] [address] - Physical Therapy [address], [place], [address], 07/26/2023 09:27:55 01/01/2018 imaging/diagnos tic result completed [email or web address] [facility] [address], [place], [address], 10/16/2023 10:03:38 01/01/2018 imaging/diagnos tic result completed [facility] [address], [place], [address], 10/16/2023 10:04:53 01/01/2018 nerve conduction study completed [facility] [address], [place], [address], 10/25/2023 08:29:16 Procedure Notes None recorded. Medical Equipment None Reported. Allergies Allergen ID Allergen Name Allergen Category Reaction Reaction Severity Criticality Documentation Date Start Date Code Code System Note Provider Name and Address Organization Details Recorded Time 9264 codeine medicatio n Not available Not available Not available 04/25/2022 2670 RxNorm React ion: Unkno wn, sever ity: [facility] wn [facility] 07:[facility] Medications Name Sig Start Date Stop Date Status Note LastModified by Organization Details LastModified Time BD Luer-Cristi Syringe 3 mL 23 x 1 USE DIRECTED FOR TESTOSTER ONE active Not Available Not Available No t Available isosorbide dinitrate 10 mg tablet TAKE ONE TABLET BY MOUTH THREE TIMES DAILY 03/13 completed Not Available Not Available Not Available methocarbam ol 500 mg tablet TAKE ONE TABLET BY MOUTH FOUR TIMES DAILY (BEFORE MEALS AND AT BEDTIME) active Not Available Not Available No t Available promethazin e-DM 6.25 mg-15 mg/5 mL oral syrup take 5 Millilite r (1 teaspoonf ul) by mouth every 6 hours as needed for cough 12/11 /2023 completed Not Available Not Available Not Available carvedilol 25 mg tablet 1 tablet prn 2023 active Not Available Not Available Not Avai lable clonidine HCl 0.1 mg tablet 1 tablet Orally Once a day for 30 day(s) 01/30 completed Not Available Not Available Not Available gabapentin 600 mg tablet 1 tablet Orally Once a day 01/30 completed Not Available Not Available Not Available carvedilol 12.5 mg tablet take 1 Tablet by mouth twice daily 07/24 completed Not Available Not Available Not Available trazodone 50 mg tablet 07/24 completed Not Available Not Available Not Available nifedipine 20 mg capsule 1 capsule Orally Three times a day 07/24 completed Not Available Not Available Not Available mycophenola te mofetil 250 mg capsule Orally active Not Available Not Available Not Available promethazin e 12.5 mg tablet Take 1 Tablet BY MOUTH every eight hours 07/24 completed Not Available Not Available Not Available isosorbide mononitrate ER 30 mg tablet,exte nded release 24 hr 03/13 completed Not Available Not Available Not Available clonazepam 0.5 mg tablet take 1 Tablet by mouth daily as needed for anxiety 07/24 completed Not Available Not Available Not Available metoprolol succinate ER 100 mg tablet,exte nded release 24 hr TAKE ONE TABLET BY MOUTH AT BEDTIME 07/24 completed Not Available Not Available Not Available clonazepam 1 mg tablet 07/24 completed Not Available Not Available Not Available metronidazo le 500 mg tablet take 1 Tablet by mouth 3 times daily for 14 days 08/21 completed Not Available Not Available Not Available clopidogrel 75 mg tablet Take 1 tablet (75 mg total) by mouth daily. 03/13 completed Not Available Not Available Not Available hydrocodone 10 mg-acetamin ophen 325 mg tablet TAKE 1 Tablet by mouth every 6 hours NEEDED sparingly for severe pain 07/24 completed Not Available Not Available Not Available SPS (with sorbitol) 15 gram-20 gram/60 mL oral suspension take 15 ml (1 tbsp) by mouth daily. Needs potassium rechecked in one week 07/24 completed Not Available Not Available Not Available aspirin 81 mg tablet,kaden yed release Take 1 tablet every day by oral route. active Not Available Not Available No t Available spironolact one 25 mg tablet Take 1 tablet (25 mg total) by mouth daily. 07/24 completed Not Available Not Available Not Available ondansetron 8 mg disintegrat ing tablet TAKE ONE TABLET BY MOUTH THREE TIMES DAILY NEEDED active Not Available Not Available No t Available fenofibrate micronized 134 mg capsule take 1 Capsule by mouth daily 2023 active Not Available Not Available Not Avai lable cyclosporin e 25 mg capsule as directed Orally 2023 active Not Available Not Available Not Avai lable carbamazepi ne 200 mg tablet take 1 Tablet by mouth twice daily as needed for severe foot pain active Not Available Not Available No t Available alprazolam 0.5 mg tablet TAKE ONE TABLET BY MOUTH DAILY 2023 active Not Available Not Available Not Avai lable ofloxacin 0.3 % ear drops 5 drops into affected ear Otic Once a day for 3 days 07/24 completed Not Available Not Available Not Available citalopram 20 mg tablet 07/24 completed Not Available Not Available Not Available doxazosin 8 mg tablet TAKE ONE TABLET BY MOUTH AT BEDTIME active Not Available Not Available No t Available Depo-Testos terone 200 mg/mL intramuscul ar oil inject 1 Millilite r intramusc ularly once monthly active Not Available Not Available No t Available temazepam 15 mg capsule Take 1 capsule by mouth every night as needed 07/24 completed Not Available Not Available Not Available oxycodone-a cetaminophe n 10 mg-325 mg tablet take 1 Tablet by mouth every 6 hours for 7 days 07/24 completed Not Available Not Available Not Available gabapentin 800 mg tablet TAKE ONE TABLET BY MOUTH once daily 2023 active Not Available Not Available Not Avai lable nifedipine ER 90 mg tablet,exte nded release 24 hr TAKE ONE TABLET BY MOUTH TWICE DAILY active Not Available Not Available No t Available hydrocodone 7.5 mg-acetamin ophen 325 mg tablet Take 1 tablet every 6 hours by oral route as needed. active Not Available Not Available No t Available hydralazine 100 mg tablet TAKE ONE TABLET BY MOUTH THREE TIMES DAILY 01/30 completed Not Available Not Available Not Available pantoprazol e 40 mg tablet,kaden yed release TAKE ONE TABLET BY MOUTH THREE TIMES DAILY active Not Available Not Available No t Available promethazin e 25 mg tablet take 1 Tablet by mouth once a day at bedtime 08/21 completed Not Available Not Available Not Available gabapentin 300 mg capsule Take 1 capsule every day by oral route. 01/30 completed Not Available Not Available Not Available Gengraf 25 mg capsule 03/13 completed Not Available Not Available Not Available folic acid 1 mg tablet TAKE ONE TABLET BY MOUTH EVERY DAY active Not Available Not Available No t Available montelukast 10 mg tablet TAKE ONE TABLET BY MOUTH DAILY active Not Available Not Available No t Available hydroxyzine HCl 25 mg tablet TAKE 1 Tablet by mouth once a day at bedtime NEEDED FOR sleep 01/30 completed Not Available Not Available Not Available zolpidem 5 mg tablet 07/24 completed Not Available Not Available Not Available gabapentin 100 mg capsule 07/24 completed Not Available Not Available Not Available ergocalcife rol (vitamin D2) 1,250 mcg (50,000 unit) capsule TAKE 1 Capsule as directed twice weekly 01/30 completed Not Available Not Available Not Available levofloxaci n 500 mg tablet TAKE ONE TABLET BY MOUTH DAILY 07/24 completed Not Available Not Available Not Available lisinopril 40 mg tablet TAKE ONE TABLET BY MOUTH EVERY DAY 07/24 completed Not Available Not Available Not Available ondansetron 4 mg disintegrat ing tablet place 1 Tablet on the tongue and let dissolve every 8 hours as needed for nausea 08/21 completed Not Available Not Available Not Available cefdinir 300 mg capsule TAKE ONE CAPSULE BY MOUTH TWICE DAILY FOR 10 DAYS 07/24 completed Not Available Not Available Not Available fluticasone propionate 50 mcg/actuati on nasal spray,suspe nsion [place] 2 spray nasALLY once a day as directed 03/13 completed Not Available Not Available Not Available calcitriol 0.25 mcg capsule TAKE 1 CAPSULE BY MOUTH EVERY DAY 01/30 completed Not Available Not Available Not Available Allergy (diphenhydr amine) 25 mg capsule Take 1 capsule every 4 hours by oral route as needed. active Not Available Not Available No t Available Ciprodex 0.3 %-0.1 % ear drops,suspe nsion 4 drops into affected ear Otic Twice a day for 7 days 01/30 completed Not Available Not Available Not Available cinacalcet 90 mg tablet TAKE 1 TABLET BY MOUTH DAILY WITH EVENING MEAL active Not Available Not Available No t Available calcium acetate(moses sphate binders) 667 mg capsule take 1 Capsule by mouth 3 times daily 08/21 completed Not Available Not Available Not Available entecavir 0.5 mg tablet TAKE ONE TABLET BY MOUTH EVERY 7 DAYS active Not Available Not Available No t Available Gas Relief (simethicon e) 1 qd prn active Not Available Not Available Not Available Stool Softener 1 prn active Not Available Not Available Not Available cholecalcif tao (vitamin D3) 1,250 mcg (50,000 unit) capsule take 1 Capsule by mouth 3 times weekly active Not Available Not Available No t Available FeroSul 325 mg (65 mg iron) tablet TAKE ONE TABLET BY MOUTH DAILY 03/13 completed Not Available Not Available Not Available Lantus Solostar U-100 Insulin 100 unit/mL (3 mL) subcutaneou s pen inject 40 Unit inject below skin once a day at bedtime 01/30 completed Not Available Not Available Not Available sevelamer carbonate 800 mg tablet Take 2 TabletS BY MOUTH three times a day with meal 07/24 completed Not Available Not Available Not Available pen needle, diabetic 32 gauge x 5/32 USE DIRECTED active Not Available Not Available No t Available Dificid 200 mg tablet TAKE ONE TABLET BY MOUTH TWICE DAILY FOR SEVEN DAYS 01/30 completed Not Available Not Available Not Available Glucocard Expression strips USE DIRECTED FOUR TIMES DAILY 08/21 completed Not Available Not Available Not Available Victoza 2-Crispin 0.6 mg/0.1 mL (18 mg/3 mL) subcutaneou s pen injector as directed Subcutane ous 01/30 completed Not Available Not Available Not Available Vascepa 1 gram capsule TAKE 2 Capsule by mouth twice daily active Not Available Not Available No t Available Humulin N NPH U-100 Insulin KwikPen 100 unit/mL (3 mL) subcutaneou s INJECT 40 UnitS into skin daily 08/21 completed Not Available Not Available Not Available Velphoro 500 mg chewable tablet CRUSH OR CHEW AND SWALLOW 1 TABLET 3 TIMES A DAY WITH MEALS 01/27 completed Not Available Not Available Not Available Auryxia 210 mg iron tablet TAKE 1 TABLET BY MOUTH THREE TIMES A DAY WITH MEALS. (SWALLOW WHOLE, DO NOT CHEW OR CRUSH MEDICATIO N) 08/21 completed Not Available Not Available Not Available Dexcom G6 Transmitter device USE DIRECTED with dexcom system active Not Available Not Available No t Available Lokelma 10 gram oral powder packet Take 1 packet twice a day by oral route. active Not Available Not Available No t Available OneTouch Ultra2 Meter 08/21 completed Not Available Not Available Not Available OneTouch Delica Plus Lancet 33 gauge USE DIRECTED TWICE DAILY active Not Available Not Available No t Available Rybelsus 3 mg tablet TAKE ONE TABLET BY MOUTH DAILY 07/24 completed Not Available Not Available Not Available Ozempic 1 mg/dose (4 mg/3 mL) subcutaneou s pen injector inject 1 syringe as directed inject below skin once weekly in place of monjarno 07/24 completed Not Available Not Available Not Available Mounjaro 5 mg/0.5 mL subcutaneou s pen injector inject 0.5/half Millilite r inject below skin once weekly 07/24 completed Not Available Not Available Not Available Dexcom G7 Repair Welder USE DIRECTED by md active Not Available Not Available No t Available Dexcom G7 Sensor device USE DIRECTED CHANGE every 10 DAYS active Not Available Not Available No t Available Xphozah 30 mg tablet Take 1 tablet every day by oral route. active Not Available Not Available No t Available Xphozah 20 mg tablet active Not Available Not Available No t Available Vitals Date Recorded Body weight Body temperature Oxygen saturation Oxygen saturation in Arterial blood by Pulse oximetry Heart rate Systolic blood pressure Diastolic blood pressure Provider Name and Address Organization Details Last Updated DateTime 3 178580. 71 g 98 [degF] 98 % 98 % 71 /min 157 mm[Hg] 87 mm[Hg] [facility] [place] - [facility] [place] [facility] [place] 3 14:46:05 Date Recorded Body height Body mass index (BMI) Body weight Heart rate Systolic blood pressure Diastolic blood pressure Provider Name and Address Organization Details Last Updated DateTime 3 175.26 cm 45.2 kg/m2 507017. 27 g 103 /min 150 mm[Hg] 96 mm[Hg] Nadya GOMEZ - [facility] [place] [facility] [place] 3 12:49:31 Date Recorded Body height Body temperature Oxygen saturation Oxygen saturation in Arterial blood by Pulse oximetry Heart rate Body mass index (BMI) Body weight Heart rate Provider Name and Address Organization Details Last Updated DateTime 4 175.26 cm 98.1 [degF] 96 % 96 % 98 /min 44.9 kg/m2 097028. 08 g 98 /min Christa GOMEZ - [facility] [place] [facility] [place] 4 11:03:15 Date Recorded Body height Body mass index (BMI) Body weight Oxygen saturation Oxygen saturation in Arterial blood by Pulse oximetry Heart rate Systolic blood pressure Diastolic blood pressure Provider Name and Address Organization Details Last Updated DateTime 4 175.26 cm 44.2 kg/m2 962939. 27 g 97 % 97 % 105 /min 180 mm[Hg] 100 mm[Hg] Nadya GOMEZ - [facility] [place] [facility] [place] 4 11:47:52 Social History Question Answer Notes LastModified by Organizat ion Details LastModified Time Tobacco Smoking Status Never Smoker Not Available [facility] 04/25/2022 09:50:53 Do You Have An Advance Directive? No Information not available 01/31/2024 What Is Your Level Of Alcohol Consumption? None Information not available 01/31/2024 Are You Blind Or Do You Have Difficulty Seeing? No Information not available 01/31/2024 What Is Your Level Of Caffeine Consumption? None Information not available 01/31/2024 Are You Currently Employed? No Disabled Information not available 01/31/2024 What Was The Date Of Your Most Recent Tobacco Screening? 07/25/2022 Information not available 01/31/2024 What Is Your Relationship Status? Information not available 01/31/2024 Are You Passively Exposed To Smoke? No Information not available 01/31/2024 Do You Or Have You Ever Used Smokeless Tobacco? Never Used Smokeless Tobacco Information not available 01/31/2024 How Much Tobacco Do You Smoke? No Information not available 01/31/2024 Do You Feel Stressed (tense, Restless, Nervous, Or Anxious, Or Unable To Sleep At Night)? [id number] Information not available 01/31/2024 Do You Use Any Illicit Or Recreational Drugs? No Information not available 01/31/2024 How Many Years Have You Smoked Tobacco? 0 Information not available 01/31/2024 Are You Currently In School? No Diploma Information not available 01/31/2024 Sex: Unknown Functional Status Question Answer Note LastModified by Organizat ion Details LastModified Time What is your exercise level? Occasional Information not available 01/31/2024 Mental Status None recorded. Family History Nothing Reported. Medical History Condition Response Hernia Y Obstructive Sleep Apnea Y Anxiety Disorder Y Autoimmune disease N Obesity Y Arthritis Y Liver Disease Y Headaches Y Kidney Disease Y Ear or Hearing Problems Y Kidney or Bladder Problems Y GI Problems Y Acne Y Anemia Y Neurological Problems Y Diabetes Y Back Problems Y Reflux/GERD Y Hypertension Y Past Encounters Encounter ID Performer Location Encounter Start Date Encounter Closed Date Diagnosis/Indication Diagnosis SNOMED-CT Code Diagnosis ICD10 Code [id number] DELMY PERDOMO [facility] [place] [id number] [place] [id number] 07/26/2022 10:46:47 07/26/2022 11:16:18 Sensorineural hearing loss 03264368 H90.3 [id number] DELMY PERDOMO [facility] [place] [id number] 03/15/2023 09:56:49 03/15/2023 10:11:13 Sensorineural hearing loss 08447899 H90.3 [id number] DELMY PREDOMO [facility] [place] [address] [address] [place] [address] 07/11/2023 13:46:50 07/11/2023 14:00:02 Sensorineural hearing loss 88742807 H90.3 [id number] Christine Covington MD [facility] [address] [facility] [place] [address] 07/24/2023 14:20:53 07/24/2023 15:23:18 Low back pain 533146071 M54.50 Chronic pa inful neuropathy due to diabetes mellitus 398770654 E11.40 Radicular pain 07055625 M54.10 Post-annika ectomy syndrome 28399206 M96.1 [id number] DO [facility] [address] [place] [address] 08/10/2023 12:42:40 08/10/2023 13:53:57 Paresthesia of lower extremity 698456361 R20.2 [id number] Michael Maradiaga MD [facility] [address] [place] [address] 08/23/2023 10:56:39 08/23/2023 11:55:01 Chronic low back pain 454133216 M54.50 [id number] DO [facility] [address] [place] [address] 01/31/2024 11:20:04 01/31/2024 12:21:41 Diabetic peripheral neuropathy 094017827 E11.40 Health Concerns Section Related Observation LastModified by Organization Detai ls LastModified Time None Recorded Concern Status LastModified by Organization Details LastModified Time None Recorded Advance Directives Directive N: Payers Encounter Date Sequence Insurance Name Policy Number Policy Asencio Covered Member ID Asencio Member ID Guarantor Name 07/11/2023 2 [place] [facility] CHO[facility] - FFS/TRADITIONA L Leoncio Rollins [id number] Leoncio Rollins 07/11/2023 1 [place]AC[place] H[place] [facility] Leoncio Rollins Jr [id number] Leoncio Rollins 07/24/2023 2 [place] [facility] CHO[facility] - FFS/TRADITIONA L Leoncio Rollins [id number] Leoncio Rollins 07/24/2023 1 [place] [facility] Leoncio Rollins Jr [id number] Leoncio Rollins 08/10/2023 2 [place]TRADITIONA L Leoncio Rollins [id number] Leoncio Rollins 08/10/2023 1 [place] (MEDICARE REPLACEMENT HMO) [facility] Leoncio Rollins Jr [id number] Leoncio Rollins 08/23/2023 2 [place]/TRADITIONA L Leoncio Rollins [id number] Leoncio Rollins 08/23/2023 1 [place] (MEDICARE REPLACEMENT HMO) [facility] Leoncio Rollins Jr [id number] Leoncio Rollins 01/31/2024 2 [place]FS/TRADITIONA L Leoncio Rollins [id number] Leoncio Rollins 01/31/2024 1 [place] (MEDICARE REPLACEMENT HMO) [facility] Leoncio Rollins Jr [id number] Leoncio Rollins Notes Date Note Type Note Provider Name and Address Organization Details Recorded Time 3 text/html Mr. Rollins was seen today for a hearing aid fitting via [facility]. ANASTACIA REDDY, AUD [address] [facility], [place], [address], [facility] [place] 07/11/2023 14:00:51 3 text/html The patient is a 48 year old male referred to [facility] by [facility] for management of peripheral neuropathy. The patient is an insulin dependent diabetic. The patient denies anti-coagulation, and smoking. 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 The patient has a history ofvertebral osteomyelitis in 2019, which he received IV antibiotics for. The patient presents to the clinic today for establishment of care. He reports his pain is in the bilateral legs and bilateral feet. He describes this pain as aching, burning, and pins/needles. He also reports pain in his low back. Today, the pain is 7/10. Onset: 15 yearsContext: Worsening over timeCharacter: Aching, Burning, Numbness, Pins/NeedlesLocation: Bilateral lower extremities, Bilateral feet, Low backDuration: Constant with fluctuationsIntensity: 7/10Worse: Mobility, Prolonged standing, Weight bearingBetter: Rest Associated symptoms: Denies saddle anaesthesia, denies acute bowel/bladder changes, denies acute power loss. ADLs: The patient's pain interferes with daily chores, exercise, sleep, relationships, and walking. Current Pain Medications: Minimal benefitPrior Pain Medications: Minimal benefitNSAIDS/OTC: Minimal benefitNon-interventional Tx: Minimal benefitPhysical Therapy: Minimal benefitInterventional Tx: Slightly beneficial for other painsSurgery: Back, Liver transplant, Left femur hardware placementImaging/Studies: Unknown Surgeon told him nerves in legs had 1 year to grow back. Pt him on 3200mg Gabapentin. Kidney doc took him off Dougie. Currently taking 400mg Dougie currently. Description: feet feel larger than they are. feels like he is walking on needles. DRG workup 4 lead @ bilateral L5 and S1.Back surgery through [facility] Discectomy in 2020 resulted in spinal infection (osteomyelitis) underwent IV abx.Blood infection twice in 2020.c/o lumbar pain (surgical scar left lumbar) Order EMGClearance from IDScheduled lumbar MRI [facility] Serenity Covington MD [address] [facility], [place], [address], [facility] - [facility] - [place] & [place] 07/26/2023 11:48:57 4 text/html This is a 48-year-old white male with a very complex medical history including end-stage renal disease, past liver transplant, cirrhosis, hepatitis B, type 2 diabetes mellitus, and obesity. He is being sent to me pre procedure. He is being considered for a spinal stimulator related to chronic back pain. He has no physical complaints today. 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 He was treated at the [facility]. He does not remember the exact bacteria. However, he completed several weeks of intravenous antibiotic therapy. He did not have any hardware inserted and did not require surgery for the infection. Michael Maardiaga MD [address], [place], [address], [facility] - [facility] [place] [facility] [place] 08/23/2023 11:48:49 4 text/html 48 y/o right handed male here for neurologic consultation requested by Dr Garcia regarding peripheral neuropathy. Leoncio is accompanied by his who helps supplement the history. Leoncio reports being diagnosed with neuropathy by Dr Lares. He had a NCV/EMG of the BLE and RUE done by her in 2018. I was able to find a copy of this testing. He had a moderate sensory motor axonal type neuropathy demonstrated on the study at that time.Leoncio reports that his neuropathy is getting worse despite his diabetes being under good control.He is prescribed gabapentin but he can't tolerate more than a total of 800mg daily. If he takes more then he shakes and jerks. He has tried pregabalin in the past but this did not help.He is taking epitol which is prescribed by his PCP. He does feel this might help a little with the pain in his feet. He tells me his liver specialist is fine with him being on this medication. He has never tried a prescription topical neuro cream for his pain.He has burning and stinging in his feet all the time. He feels he is walking on exposed bone at times. He can't feel the floor when he walks but also has worse pain when walking. He has poor balance but is very careful to avoid falls.He has seen Dr Covington in the past for possible SCS workup. He did not get far into that before he ended up in the hospital for other medical issues which has halted that workup. Erika Wood DO [address], [place], [address], [place] - [facility] [place] [facility] [place] 01/31/2024 12:30:42
--- OUTSIDE RECORDS SUMMARY | 2024-07-12 13:10 | XMS_ITS | Encounter Summary ---
Author Organization [facility] Address [address] [place] [address] Care Team Providers Care Air Motor Repairer Name Role Phone Unavailable Primary Care Provider Unavailabl e Encounter Details Date Type Department Care Team (Late st Contact Info) Description 07/30/2014 [facility]HR Vitals Encounter [facility] OUTPATIENT CONVERSIONS [address] [place] [address] Provider, MD Amrit [address] [place] [address] Social History Tobacco Use Types Packs/Day [...] - Inhaled Oxygen Concentration - - Weight 116 kg (255 lb 2.9 oz) 07/30/2014 9:30 AM EST Height 170.2 cm (5' 7 ) 07/30/2014 9:30 AM EST Body Mass Index 39.97 07/30/2014 9:30 AM EST documented in this encounter Plan of Treatment Not on file documented as of this encounter Visit Diagnoses Not on filedocumented in this encounter
--- OUTSIDE RECORDS SUMMARY | 2024-07-12 13:10 | XMS_ITS | Encounter Summary ---
Author Organization [facility] Address [address] [place] [address] Care Team Providers Care Audit Specialist Name Role Phone Edgar Fournier MD Primary Care Provider [phone] Encounter Details Date Type Department Care Team (Late st Contact Info) Description 05/29/2014 [facility] OTTR Encounter HISTORICAL OTTR [address] [place] [address] Provider, MD Amrit [address] [place] [address] Social History Tobacco Use Types Packs/Day [...] Diagnosis Comments OTTR LAB RESULTS (MANUAL) Routine 04/10/2015 5:22 AM EDT OTTR LAB RESULTS (MANUAL) Routine 04/10/2015 1:03 AM EDT OTTR LAB RESULTS (MANUAL) Routine 08/01/2014 2:18 PM EST OTTR LAB RESULTS (MANUAL) Routine 06/17/2014 9:36 AM EST OTTR LAB RESULTS (MANUAL) Routine 05/29/2014 2:15 PM EDT documented in this encounter Results * OTTR LAB RESULTS (MANUAL) (04/10/2015 5:22 AM EDT) External Estimated GFR 186.14 EXTERNAL LAB 04/10/2015 5:22 AM EDT Narrative EXTERNAL LAB - 04/10/2015 6:05 AM EDT Automated LAB Interface us Historical Provider MD LAB BLOOD ORDERABLES Yoselin l Result Performing Organization Address [facility] Phone Number EXTERNAL LAB * OTTR LAB RESULTS (MANUAL) (04/10/2015 1:03 AM EDT) External Estimated GFR 154.83 EXTERNAL LAB 04/10/2015 1:03 AM EDT Narrative EXTERNAL LAB - 04/10/2015 2:09 AM EDT Automated LAB Interface us Historical Provider MD LAB BLOOD ORDERABLES Yoselin l Result Performing Organization Address [facility] Phone Number EXTERNAL LAB * OTTR LAB RESULTS (MANUAL) (08/01/2014 2:18 PM EST) External Estimated GFR 158.60 EXTERNAL LAB 08/01/2014 2:18 PM EST Narrative EXTERNAL LAB - 08/01/2014 4:01 PM EST Automated LAB Interface us Historical Provider MD LAB BLOOD ORDERABLES Yoselin l Result EXTERNAL LAB * OTTR LAB RESULTS (MANUAL) (06/17/2014 9:36 AM EST) External Estimated GFR 158.60 EXTERNAL LAB 06/17/2014 9:36 AM EST Narrative EXTERNAL LAB - 06/17/2014 11:01 AM EST Automated LAB Interface us Historical Provider LAB BLOOD ORDERABLES Yoselin l Result EXTERNAL LAB * OTTR LAB RESULTS (MANUAL) (05/29/2014 2:15 PM EDT) External WBC 2.9 10-3/mm3 EXTERNAL LAB External Hemoglobin (Hgb) 14.0 EXTERNAL LAB External Hematocrit (Hct) 40.4 % EXTERNAL LAB External Platelet Count (Plt) 116 mm/3 EXTERNAL LAB External Glucose 342 mg/dL EXTERNAL LAB External BUN 8 mg/dL EXTERNAL LAB External Creatinine Blood 0.6 mg/dL EXTERNAL LAB External Sodium (Na) 135 mEq/L EXTERNAL LAB External Potassium (K) 3.8 mEq/L EXTERNAL LAB External Chloride (Cl) 102 mEq/L EXTERNAL LAB External Carbon Dioxide (CO2) 21 mEq/L EXTERNAL LAB External Calcium (Ca) 8.8 EXTERNAL LAB External AST (SGOT) 51 IU/L EXTERNAL LAB External ALT (SGPT) 40 IU/L EXTERNAL LAB External Alkaline Phosphatase 153 IU/L EXTERNAL LAB External Bilirubin Total 4.8 mg/dL EXTERNAL LAB External Total Protein 6.5 g/dL EXTERNAL LAB External Albumin 3.1 g/dL EXTERNAL LAB External Estimated GFR 158.60 EXTERNAL LAB External Prostate Specific Antigen (PSA) 0.29 ng/ml EXTERNAL LAB 05/29/2014 2:15 PM EDT Narrative EXTERNAL LAB - 06/04/2014 2:18 PM EDT [facility] us Historical Provider LAB BLOOD ORDERABLES Yoselin l Result EXTERNAL LAB documented in this encounter Visit Diagnoses Not on filedocumented in this encounter Care Teams Audit Specialist Relationship Specialty Start Date End Date Edgar Fournier MD [address] [place] [address] PCP - General 12/25/20 documented as of this encounter
[2024-07-12 13:18] LABS: Albumin Level 4.3 g/dl (3.5-5.0); Bilirubin,Direct 0.7 mg/dl (0.0-0.4); Bilirubin,Total 0.7 mg/dl (0.2-1.3); Carbon Dioxide 12 mmol/L (22.0-30.0); Total Protein,Serum 6.7 g/dl (6.3-8.2)
[2024-07-12 13:44] LABS: Alanine Aminotransferase 10 U/L (12-78); Alkaline Phosphatase 261 U/L (38-126); Anion Gap 27.1 mEq/L (5-15); Aspartate Amino Transferase 19 U/L (17-59); Blood Urea Nitrogen 75 mg/dl (9-20); Calcium 7.8 mg/dl (8.4-10.2); Chloride 107 mmol/L (98-107); Estimated Glomerular Filt Rate 5 ml/min (>60); GFR (African American) 6 ML/MIN (>60); Glucose 143 mg/dl (74-100); Sodium 140 mmol/L (136-145)
[2024-07-12 13:57] LABS: Potassium 6.1 mmoL/L (3.5-5.1)
[2024-07-17 11:13] LABS: Cyclosporine 40 ng/mL (100-400)
== END 2024-07-12 23:59 | disposition home or self-care (01) ==
LOC: LAB 12:09
PROVIDERS: PCP Family Medicine; Visit Provider Internal Medicine
DX: Z94.4 Liver transplant status (principal); Z79.899 Other long term (current) drug therapy
CPT/HCPCS: 36415; 80069; 80076; 80158; 85025

== ENCOUNTER 2024-11-04 17:38 | Emergency (ER) | payer MEDICARE, MEDICAID, SELFPAY ==
[2024-11-04] VITALS (7 sets, daily range): BP systolic 152–174; BP diastolic 94–122; PULSE 95–110; RESP 18; TEMP 36.6–37; O2SAT 97–99; BMI 41.9
--- NOTE | 2024-11-04 17:58 | CT_ITS ---
PROCEDURE INFORMATION: Exam: CT Abdomen And Pelvis With Contrast Exam date and time: 11/04/2024 8:14 PM Age: 49 years old Clinical indication: Other: Dialysis dependant, liver txp, b/l flank pain TECHNIQUE: Imaging protocol: Computed tomography of the abdomen and pelvis with contrast. Radiation optimization: All CT scans at this facility use at least one of these dose optimization techniques: automated exposure control; mA and/or kV adjustment per patient size (includes targeted exams where dose is matched to clinical indication); or iterative reconstruction. Contrast material: ISOVUE; Contrast volume: 75 ml; Contrast route: IV; COMPARISON: CT ABDOMEN PELVIS WO CON 10/17/2023 9:06 AM FINDINGS: Liver: Normal. No mass. Gallbladder and biliary ducts: Gallbladder is surgically absent. No significant biliary ductal dilation. Pancreas: Normal. No ductal dilation. Spleen: Normal. No splenomegaly. Adrenal glands: Normal. No mass. Kidneys and ureters: Significant bilateral renal atrophy. No renal mass or hydronephrosis. Stomach and bowel: Mild diverticulosis throughout the distal colon. No bowel wall thickening or evidence of bowel obstruction. Appendix: The appendix is visualized and appears normal. Intraperitoneal space: Unremarkable. No free air. No significant fluid collection. Vasculature: Multiple perisplenic varices again noted. Abdominal aorta normal in caliber. No evidence of aneurysm or dissection. Lymph nodes: Unremarkable. No enlarged lymph nodes. Urinary bladder: Unremarkable as visualized. Reproductive: Unremarkable as visualized. Bones/joints: Severe arthritic changes of the lumbosacral junction appears similar to previous. There is again noted evidence of prior L5 laminectomy. No acute vertebral body compression or fracture. Soft tissues: Moderate-sized midline ventral hernia containing several loops of small bowel. IMPRESSION: No acute abnormality. Stable chronic findings as noted.
--- NOTE | 2024-11-04 18:01 | HMH.EDGENADL ---
Discharge Plan Disposition Patient Disposition: Home, Self-Care Chief Complaint: Abdominal Pain Prescriptions Prescriptions: No Action mycophenolate mofetil 250 mg capsule 250 mg PO DAILY 30 Days Qty: 120 Patient Comments: ergocalciferol (vitamin D2) 1,250 mcg (50,000 unit) capsule 50,000 unit PO .COMPLEX 28 Days Patient Comments: Rx Instructions: 50,000 units PO 3xweek; doxazosin 8 mg tablet 8 mg PO DAILY carbamazepine 200 mg tablet 200 mg PO QHS entecavir 0.5 mg tablet 0.5 mg PO WEEKLY Patient Comments: Take 1 tablet (0.5 mg total) by mouth every 7 days. cholecalciferol (vitamin D3) 1,250 mcg (50,000 unit) capsule 1,250 mcg PO .TIW Patient Comments: take 1 Capsule by mouth 3 times weekly montelukast 10 mg tablet 10 mg PO DAILY folic acid 1 mg tablet 1 mg PO DAILY Patient Comments: TAKE ONE TABLET BY MOUTH EVERY DAY azelastine 137 mcg (0.1 %) aerosol,spray 1 spray intranasal BID Qty: 30 2RF Rx Instructions: administer into each nostril insulin aspart U-100 [Novolog FlexPen U-100 Insulin] 100 unit/mL (3 mL) insulin pen SQ amoxicillin 500 mg capsule 500 mg PO BID 10 Days Qty: 20 0RF nifedipine 90 mg tablet extended release 24hr 90 mg PO DAILY Patient Comments: Take 1 tablet(s) by mouth twice daily calcium acetate(phosphat bind) 667 mg capsule 667 mg PO ONCE Patient Comments: TAKE 1 CAPSULE BY MOUTH THREE TIMES DAILY WITH MEALS AND 1 CAPSULE DAILY WITH A SNACK testosterone cypionate 200 mg/mL oil 200 mg SQ QMONTH Patient Comments: inject 1 Milliliter intramuscular inject once monthly cyclosporine 25 mg capsule 100 mg PO BID carvedilol 25 mg tablet 25 mg PO ONCE Eliquis 2.5 mg tablet 2.5 mg PO aspirin 81 MG tablet,delayed release (DR/EC) 81 mg PO DAILY cyclobenzaprine 10 MG tablet 10 mg PO Q8H PRN (Reason: Muscle Spasm) 10 Days Qty: 30 0RF pantoprazole 40 MG tablet,delayed release (DR/EC) 40 mg PO DAILY Referrals Follow up/Referrals: Edgar Fournier [Primary Care Provider] - See instructions Activity Restrictions/Add. Instructions Additional Instructions/Restrictions: At this time it was felt you are safe to be discharged home. If new or worsening symptoms please do not hesitate to return the emergency department. As discussed I do not quite know what is going on with your flank pain today but I feel that all emergent conditions have been ruled out. It is very likely that it has something to do with referred pain from your back. Please continue to follow-up with your family doctor for continued evaluation and if things change or become worse or you have new symptoms please come back to the emergency department. Please take your blood pressure medications when you get home. Clinical Impressions Clinical Impression: Flank pain Instructions Patient Instructions: DI for Acute Abdominal Pain Print Language Print Language: Trinidadian Discharge ED Provider: Uday Tamayo General Adult HPI General Chief complaint: Abdominal Pain Stated complaint: dialysis pt , back and abd pain Time Seen by Provider: 11/04/24 17:50 Mode of Arrival: Ambulatory Source of Information: Patient Description of Symptoms (Recalled from ER Triage Doc. by RN): Pt presents for evaluation of bilateral flank pain and RLQ. Pt states he has had the pain x 2 weeks Pt was admitted to [facility] 1 week ago for the pain. Pt is continuing to have pain and diarrhea. Pt is a dialysis patient (Peritoneal Dialysis- 4days a week), and had a liver transplant in 2018 History of Present Illness HPI narrative: Patient is a 49-year-old male status post liver transplant on immunosuppression, abdominal hernia pending repair, dialysis dependent 4 days a week with indwelling catheter who presents emergency department for evaluation of bilateral flank pain. Onset was acute, over the last 24 hours. Last week he presented department [facility] with pain around his hernia and was found to have metabolic derangement he was admitted and did subsequently discharged home. He has chronic back pain however this is much different in character causing him to become concerned to come here for continued evaluation. He has nonbloody diarrhea. He does not make urine. No other acute complaints at this time. No chest pain reported. Please note that above description of symptoms, in this electronic medical record under categorization of recalled from ER triage doctor by RN are reflective of an initial nursing assessment, however, is not reflective of my full history and physical exam that was personally taken and clarified. Consequentially, this preceding description of symptoms, which may include the patient's categorized chief complaint in the EMR, do not reflect my personal clinical impression, and the ultimate description of history of present illness and patient stated complaints should be deferred to this section of the note. Unless stated otherwise or congruent with this section of the note, additional signs, symptoms, or incongruence should be interpreted as inaccurate with my clinical impression. Related Data Home Medications ?Medication ?Instructions ?Recorded ?Confirmed mycophenolate mofetil 250 mg 250 mg PO DAILY Supplement 30 days 11/27/17 09/18/24 capsule ##120 aspirin 81 mg tablet,delayed 81 mg PO DAILY SUP 04/15/18 09/18/24 release calcium acetate(phosphat bind) 667 667 mg PO ONCE Supplement 02/20/20 09/18/24 mg capsule ergocalciferol (vitamin D2) 1,250 50,000 unit PO .COMPLEX Supplement 02/20/20 09/18/24 mcg (50,000 unit) capsule 28 days nifedipine 90 mg tablet,extended 90 mg PO DAILY High blood pressure 02/20/20 09/18/24 release 24 hr carbamazepine 200 mg tablet 200 mg PO QHS unknown 03/25/20 09/18/24 doxazosin 8 mg tablet 8 mg PO DAILY unknown 03/25/20 09/18/24 cyclosporine 25 mg capsule 100 mg PO BID unknown 10/19/21 09/18/24 entecavir 0.5 mg tablet 0.5 mg PO WEEKLY unknown 10/19/21 09/18/24 testosterone cypionate 200 mg/mL 200 mg SQ QMONTH Supplement 10/19/21 09/18/24 intramuscular oil pantoprazole 40 mg tablet,delayed 40 mg PO DAILY GERD 02/13/22 09/18/24 release cholecalciferol (vitamin D3) 1,250 1,250 mcg PO .TIW 04/06/22 09/18/24 mcg (50,000 unit) capsule folic acid 1 mg tablet 1 mg PO DAILY 05/31/22 09/18/24 montelukast 10 mg tablet 10 mg PO DAILY 05/31/22 09/18/24 carvedilol 25 mg tablet 25 mg PO ONCE 01/15/24 09/18/24 insulin aspart U-100 100 unit/mL SQ 02/09/24 09/18/24 (3 mL) subcutaneous pen (Novolog FlexPen U-100 Insulin aspart) apixaban 2.5 mg tablet (Eliquis) 2.5 mg PO 09/18/24 09/18/24 Previous Rx's ?Medication ?Instructions ?Recorded cyclobenzaprine 10 mg tablet 10 mg PO Q8H PRN Muscle Spasm 10 04/22/20 days #30 tabs azelastine 137 mcg (0.1 %) nasal 1 spray intranasal BID #30 mL 01/01/24 spray amoxicillin 500 mg capsule 500 mg PO BID poss infection 10 04/08/24 days #20 caps Allergies Allergy/AdvReac Type Severity Reaction Status Date / Time tacrolimus Allergy Agitated Verified 11/04/24 18:18 [facility] Disclaimer: The information contained in this section may have been updated after the patient was seen, as this information can be updated by other users. Medical History Ear drainage Ear drainage right Hard of hearing Retraction of tympanic membrane of left ear Chronic eustachian tube dysfunction Hearing loss in left ear History of left heart catheterization History of transesophageal echocardiography ([facility]) JC (obstructive sleep apnea) Severe JC and nocturnal hypoxemia. Unable to tolerate AutoPap, CPAP, auto BiPAP. He did well on BiPAP during previous hospitalization at and during recent titration at [facility]. Kidney stone Anxiety He has a prescription for Xanax Mixed conductive and sensorineural hearing loss of both ears Arthritis Diabetes mellitus Memory problem Renal failure Hepatitis History of stomach ulcers Hypertension Sleep apnea Kidney disease Surgical History History of placement of ear tubes History of right heart catheterization History of esophagogastroduodenoscopy History of colonoscopy History of liver transplant History of back surgery History of surgery on lower extremity Family History Other Asthma Diabetes Heart disease Hypertension Kidney disease Social History Smoking Status: Never smoker alcohol intake: never counseling provided: none substance use type: denies use current occupational status: disabled Travel in the last 8 weeks: None household members: family housing: house Have you lived/traveled outside [place] in past 30 days?: No Contact w/someone who lives/traveled outside US past 30 days?: No Exposure to someone with infectious disease in past 14 days?: No Do you have a fever (greater than 100.4 F or 38 C)?: No Have you tested positive for COVID-19: No Exposed to someone with COVID-19 in past 14 days?: No Do you have a sore throat?: No Do you have a cough?: No Do you have any weakness?: No Do you have any diarrhea?: No Are you experiencing any unusual bleeding?: No Do you have any muscle aches/pain?: No Do you have any abdominal pain?: Yes Are you experiencing loss of taste or smell?: No Other Medical History Have you received the Flu Vaccine for this season: No Have you received the Pneumonia Vaccine: Yes ROS Obtained: Yes Systems reviewed as appropriate & no additional complaints except as documented Physical Exam General General appearance: alert and in no apparent distress Head Head exam: atraumatic and normocephalic Eye Eye exam: Present PERRL ENT ENT exam: Present mucous membranes moist Neck Neck exam: Present normal inspection Chest Chest inspection: Present normal inspection and symmetric chest wall rise Respiratory Respiratory exam: Present normal lung sounds bilaterally; Absent respiratory distress Cardiovascular Cardiovascular exam: Present regular rate and normal rhythm Abdominal Exam Abdominal exam: Present soft and other (Large hernia that is nontender no overlying skin changes appears to be reducible however is difficult to fully tell given body habitus.); Absent tenderness Extremities Exam Extremities exam: Present normal inspection Back Exam Back exam: Present normal inspection; Absent tenderness Neurological Exam Neurological exam: Present alert Psychiatric Psychiatric exam: Present normal affect Skin Skin exam: Present warm and dry Medical Decision Making Medical Records Screening: Per USPSTF and CDC recommendations, given the prevalence of disease in our region, it is our hospital?s policy to screen for HIV and viral Hepatitis for all patients aged 18 and over and those with ongoing risk factors. Bello Inquiry Pt receiving controlled substance: No Vital Signs: 11/04/24 17:42 11/04/24 18:00 11/04/24 18:29 Temperature 98.6 F Temperature Source Oral Pulse Rate 101 H 102 H Pulse Rate [Right] 110 H Respiratory Rate 18 Blood Pressure 168/108 H 152/122 H Blood Pressure [Right Arm] 163/96 H Blood Pressure Mean 130 Blood Pressure Mean [Right Arm] 118 Blood Pressure Source [Right Arm] Automatic Cuff Blood Pressure Position [Right Arm] Sitting 02 Sat by Pulse Oximetry 99 97 99 Oxygen Delivery Method Room Air Room Air 11/04/24 19:30 11/04/24 20:00 11/04/24 20:30 Temperature Temperature Source Pulse Rate 99 H 101 H 95 H Pulse Rate [Right] Respiratory Rate Blood Pressure 156/106 H 153/116 H 165/94 H Blood Pressure [Right Arm] Blood Pressure Mean 126 127 Blood Pressure Mean [Right Arm] Blood Pressure Source [Right Arm] Blood Pressure Position [Right Arm] 02 Sat by Pulse Oximetry 98 Oxygen Delivery Method Lab Data Lab Results 11/04/24 18:09: SARS-CoV-2 (PCR) Not detected, Influenza A Untype (PCR) Not detected, Influenza Type B (PCR) Not detected 11/04/24 18:32: VBG pH 7.29 L, VBG pCO2 40.8, VBG pO2 44.0 H, VBG HCO3 19.1 L, VBG Total CO2 20.4 L, VBG O2 Saturation 75.4 H, VBG Base Excess -7.5 L, VBG Lactic Acid 2.3 H 11/04/24 19:24: WBC 5.9, RBC 4.24 L, Hgb 13.4 L, Hct 42.7, MCV 100.7 H, MCH 31.6 H, MCHC 31.4 L, RDW 16.3, Plt Count 341, MPV 9.3, Neut % (Auto) 62.4, Lymph % (Auto) 18.9, Sibley % (Auto) 8.8, Eos % (Auto) 4.4, Baso % (Auto) 0.8, Neut # (Auto) 3.7, Lymph # (Auto) 1.1, Sibley # (Auto) 0.5, Eos # (Auto) 0.3, Baso # (Auto) 0.1, Sodium 137, Potassium 4.6, Chloride 103, Carbon Dioxide 20 L, Anion Gap 18.6 H, BUN 45 H, Creatinine 8.00 H, Estimated Creat Clear 11, Estimated GFR 7 L*, Est GFR ( Amer) 9 L*, Glucose 142 H, Calcium 9.0, Total Bilirubin 0.7, AST 23, ALT 16, Alkaline Phosphatase 205 H, Total Protein 7.8, Albumin 4.9, Globulin 2.9, Albumin/Globulin Ratio 1.7, Lipase 70 11/04/24 19:24 11/04/24 19:24 Orders (Tests/Meds): ED MEDICATIONS Discontinued Medications Generic Name Dose Route Start Last Admin Trade Name Freq PRN Reason Stop Dose Admin Hydromorphone HCl 0.5 mg 11/04/24 21:04 11/04/24 21:06 Hydromorphone 2mg/Ml Syringe IV 11/04/24 21:05 0.5 mg ONCE ONE Administration Iopamidol 75 ml 11/04/24 20:15 11/04/24 20:18 Iopamidol-370 (76%);100ml Bottle IV 11/04/24 20:16 75 ml ONCE ONE Administration Morphine Sulfate 4 mg 11/04/24 18:00 11/04/24 18:56 Morphine 4mg/Ml Syringe IV 11/04/24 18:01 4 mg ONCE ONE Administration Ondansetron HCl 4 mg 11/04/24 18:01 11/04/24 18:56 Ondansetron 4mg/2ml Vial IV 11/04/24 18:02 4 mg ONCE ONE Administration Oxycodone HCl 5 mg 11/04/24 19:31 11/04/24 19:34 Oxycodone 5mg Immediate Release Tablet PO 11/04/24 19:32 5 mg ONCE ONE Administration Sodium Chloride 10 ml 11/04/24 20:15 11/04/24 20:18 Sodium Chloride 0.9% 10ml Syr (Rad Only) IV 11/04/24 20:16 10 ml ONCE ONE Administration ORDERS Category Date Time Status CT abdomen pelvis w con Stat Cat Scan 11/04/24 17:58 Completed POCUS Point of Care (ER Only) Stat Exams 11/04/24 17:59 Taken CBC w/Auto Diff [Complete Blood Count Auto Diff] Stat Lab 11/04/24 19:24 Completed CMP [Comprehensive Metabolic Panel] Stat Lab 11/04/24 19:24 Completed HIV Combo Stat Lab 11/04/24 19:24 Received Hepatitis C Ab Qual. W/ RFX Stat Lab 11/04/24 19:24 Received Lipase Stat Lab 11/04/24 19:24 Completed Rapid PCR Covid and Flu A/B Stat Lab 11/04/24 18:09 Completed VBG [Venous Blood Gas] Stat RT 11/04/24 18:32 Completed ECG Data Tracing #1: Independently interpreted by me rate is 102, rhythm is regular, axis is normal, no ST elevation in anatomical contiguous leads, QTc 408. Medical Decision Narrative: In summary patient is a 49-year-old male with past medical history described above who presents emergency department for evaluation of bilateral flank pain. Patient is hemodynamically stable nontoxic-appearing upon arrival, mild tachycardia, afebrile. Differential includes nonspecific viral syndrome, mass, musculoskeletal back pain, among others. Workup we conducted hematologic labs, CT abdomen pelvis with IV contrast given that he is totally dialysis dependent anuric contrast is okay to administer. Pain control be conducted with narcotics given that he takes narcotics at baseline and Toradol is contraindicated. No anterior abdominal pain to suggest bacterial peritonitis and he does not have a history of ascites. Bounding pulses in his feet, doubt dissection. Initial workup reviewed by me, hematologic labs are nonactionable no significant leukocytosis no anemia, he has a mild acidosis which I suspect is likely due to his CKD that is nonactionable given that he did not have dialysis today and he has it tomorrow should resolve. No critical electrolyte abnormality that would warrant emergent dialysis. Lipase normal. Viral swab negative. Upon repeat evaluation patient continued to have pain, he cannot take Tylenol or NSAIDs given his comorbidities. Upon further discussion patient has had longstanding back pain and has had previous operations, it may be that he has referred back pain wrapping around his bilateral flanks. He has already taken his muscle relaxers with no relief. He is said that he goes to the hospital frequently and gets high-dose opiates. Prolonged shared decision making discussion was had at bedside we will give half dose of Dilaudid. He is pending pain pump placement. CT of the abdomen pelvis shows stable chronic findings. Given this I feel that essentially all emergent conditions have been ruled out at this time patient is appropriate for outpatient management. Patient was discharged in stable condition will continue to follow-up. Critical Care Critical Care Time Critical Care Time: No
--- NOTE | 2024-11-04 18:03 | PC.NURSE ---
pt c/o bilateral flank pain that started suddenly today while walking. pt states the pain is 8/10. pt also reports umbilical hernia pain that has been ongoing 2wks. pt was recently d/c from [place] due to this pain. pt has an extensive hx including a liver transplant in 2018, home HD, DM, and HTN. pt reports he does his home dialysis using his L subclavian port. pt does this on , Mon, Monday and Monday. pts transplant was at , where he is on the transplant list for a kidney.
--- NOTE | 2024-11-04 18:06 | ECG_ITS ---
APPROVED REPORT Exam: Resting ECG HR:102 bpm ECG Measurements Heart Rate 102 AXES CO 226 P -24 QRSd 112 QRS 27 QT 349 T 46 QTc 408 Conclusion SINUS TACHYCARDIA WITH FIRST DEGREE AV BLOCK POSSIBLE LEFT ATRIAL ENLARGEMENT [-0.1mV P-WAVE IN V1/V2] PROBABLE INFERIOR MYOCARDIAL INFARCTION , PROBABLY OLD [35 ms Q WAVE IN II/aVF] ABNORMAL ECG Electronically signed by : CRISTINO MENON, 11/05/2024 00:15:48
[2024-11-04 18:14] LABS: Coronavirus 19, PCR Not Detected (NotDetected); Influenza A, PCR Not Detected (NotDetected); Influenza B, PCR Not Detected (NotDetected)
--- NOTE | 2024-11-04 18:16 | PC.NURSE ---
pt does not make urine. states he hasn't in two years
--- NOTE | 2024-11-04 18:32 | PC.NURSE ---
RESPIRATORY AWARE OF VBG
--- NOTE | 2024-11-04 18:46 | PC.NURSE ---
labs & medications delayed d/t difficulty establishing IV. Called lab to obtain labs ordered.
[2024-11-04] MEDS: MORPHINE 4MG/ML SYRINGE 4 MG IV (18:56)
[2024-11-04] MEDS: ONDANSETRON 4MG/2ML VIAL 4 MG IV (18:56)
--- NOTE | 2024-11-04 19:32 | PC.NURSE ---
rounded on pt at this time. pt requesting ice chips and pain medication. MD Tamayo notified. verbal order received for oxycodone 5mg PO. OK to have ice chios.
[2024-11-04] MEDS: OXYCODONE 5MG IMMEDIATE RELEASE TABLET 5 MG PO (19:34)
[2024-11-04 19:38] LABS: Basophils # 0.1 K/mm3 (0-0.2); Basophils % 0.8 % (0.1-2.0); Eosinophils # 0.3 K/mm3 (0.0-0.4); Eosinophils % 4.4 % (0.1-12.0); Hematocrit 42.7 % (42.0-52.0); Hemoglobin 13.4 g/dL (14.1-18.0); Lymphocytes # 1.1 K/mm3 (0.7-4.5); Lymphocytes % 18.9 % (10-50); Mean Corpuscular HGB Conc 31.4 g/dL (31.8-35.4); Mean Corpuscular Hemoglobin 31.6 pg (27.0-31.2); Mean Corpuscular Volume 100.7 fl (80-94); Mean Platelet Volume 9.3 fl (7.4-10.4); Monocytes # 0.5 K/mm3 (0.1-1.0); Monocytes % 8.8 % (1.7-9.3); Neutrophils # 3.7 K/mm3 (1.8-7.8); Neutrophils % 62.4 % (37.0-80.0); Platelet Count 341 K/mm3 (142-424); Red Blood Count 4.24 M/mm3 (4.60-6.20); Red Cell Distribution Width 16.3 % (11.5-17.5); White Blood Count 5.9 K/mm3 (4.8-10.8)
[2024-11-04 19:45] LABS: VBG Base Excess -7.5 mmol/L (-2.4-2.3); VBG HCO3 19.1 mmol/L (23-30); VBG Oxygen Saturation 75.4 % (50-70); VBG PCO2 40.8 mmol/L (35-51); VBG PH 7.29 mmol/L (7.31-7.41); VBG Total CO2 20.4 mmol/L (23-27)
[2024-11-04 19:46] LABS: Lactate Venous 2.3 mmol/L (0.4-2.0)
[2024-11-04 19:46] LABS: Albumin Level 4.9 g/dl (3.5-5.0); Chloride 103 mmol/L (98-107); Potassium 4.6 mmoL/L (3.5-5.1); Sodium 137 mmol/L (136-145)
[2024-11-04 19:49] LABS: Alanine Aminotransferase 16 U/L (12-78); Albumin/Globulin Ratio 1.7 (1.1-1.8); Alkaline Phosphatase 205 U/L (38-126); Anion Gap 18.6 mEq/L (5-15); Aspartate Amino Transferase 23 U/L (17-59); Bilirubin,Total 0.7 mg/dl (0.2-1.3); Blood Urea Nitrogen 45 mg/dl (9-20); Carbon Dioxide 20 mmol/L (22.0-30.0); Creatinine Clearance Estimated 11 mL/min (50-200); Estimated Glomerular Filt Rate 7 ml/min (>60); GFR (African American) 9 ML/MIN (>60); Globulin 2.9 g/dL (1.3-3.2); Glucose 142 mg/dl (74-100); Lipase 70 U/L (23-300); Total Protein,Serum 7.8 g/dl (6.3-8.2)
[2024-11-04] MEDS: SODIUM CHLORIDE 0.9% 10ML SYR (RAD ONLY) 10 ML IV (20:18)
[2024-11-04] MEDS: IOPAMIDOL-370 (76%);100ML BOTTLE 75 ML IV (20:18)
[2024-11-04] MEDS: HYDROMORPHONE 2MG/ML SYRINGE 0.5 MG IV (21:06)
[2024-11-04 21:13] LABS: HIV Combo NEGATIVE (Negative)
[2024-11-04 21:21] LABS: Hepatitis C Ab Qual. W/ RFX NEGATIVE (Negative)
[2024-11-04 23:47] LABS: Reflex Lactic Add Lactic Reflex
== END 2024-11-04 21:30 | disposition home or self-care (01) ==
PROVIDERS: Emergency Provider Emergency Medicine; PCP Family Medicine
DX: R10.9 Unspecified abdominal pain (principal); R10.31 Right lower quadrant pain; M54.9 Dorsalgia, unspecified; G89.29 Other chronic pain; R19.7 Diarrhea, unspecified; N18.6 End stage renal disease; Z99.2 Dependence on renal dialysis; Z94.4 Liver transplant status; Z96.22 Myringotomy tube(s) status
CPT/HCPCS: 74177; 80053; 82803; 83690; 85025; 86803; 87389; 87636; 93005; 96374; 96375; 99285; J1171; J2270; J2405; Q9967

== ENCOUNTER 2025-05-28 10:14 | Outpatient (CLI) | payer MEDICARE, MEDICAID, SELFPAY ==
--- NOTE | 2025-05-28 | CA_ITS ---
FINAL REPORT CLINICAL HISTORY: Pre right and left heart catheterization, Previous DVT of Bilateral IJV, Left subclavian dialysis port COMPARISON: None FINDINGS: DUPLEX VENOUS SONOGRAPHY OF THE BILATERAL LOWER EXTREMITIES Multiple transverse and longitudinal scans were performed of the femoropopliteal deep venous systems, with augmentation and compression maneuvers. HISTORY: Prior heart catheterization with deep venous thrombosis in the internal jugular veins bilaterally. FINDINGS: Normal phasic flow was noted in the visualized deep venous systems. No intraluminal increased echogenicity is noted to suggest thrombus on the right. On the left side, the left internal jugular vein is not compressible, however flow is demonstrated. Nonocclusive thrombus cannot be excluded. The remainder of the left upper extremity venous system is unremarkable with normal compression and augmentation of the venous structures. No abnormal venous collaterals are seen. IMPRESSION: No evidence of deep venous thrombosis of the right upper extremities. Poor compressibility without visualized thrombus is present in the left internal jugular vein. Nonocclusive thrombus cannot be excluded. The remainder of the left upper extremity venous system is unremarkable. Reviewed, Interpreted and Dictated by Gricel Robbins MD Transcribed by Eleanor Kumar Authenticated and [facility]
== END 2025-05-28 23:59 | disposition home or self-care (01) ==
LOC: RT 10:16
PROVIDERS: PCP Family Medicine; Visit Provider Nurse Practitioner Family
DX: R93.89 Abnormal findings on diagnostic imaging of other specified body structures (principal); I82.890 Acute embolism and thrombosis of other specified veins; M79.89 Other specified soft tissue disorders
CPT/HCPCS: 93970

== ENCOUNTER 2025-06-03 11:15 | Outpatient (CLI) | payer MEDICARE, MEDICAID, SELFPAY ==
--- OUTSIDE RECORDS SUMMARY | 2025-06-03 11:19 | XMS_ITS | Clinical Summary ---
Author Organization [facility] Address [address] [place] [address] Phone Care Team Providers Care Maintenance Mechanic Helper Name Role Phone Desire Weldon Unavailable Unavailable Conditions or Problems Problem Name Problem Code Onset Date Status Entry Date Provider Comment Standard Description Annotate Osteomyelitis of vertebra, lumbar region M46.26 (ICD-10-CM ) 0 Active 0 Afshan W Osteomyelitis of vertebra, lumbar region Abscess, epidural 41476370 (SNOMED CT) 0 Active 0 Afshan W Spinal epidural abscess Liver transplant-Imm unocompromised 19211571 (SNOMED CT) 0 Active 005 Afshan W Transplantation of liver Low back pain 451948311 (SNOMED CT) 0 Active 0/ Afshan W Low back pain Hyponatremia 93296258 (SNOMED CT) 0 Active 0/05 Afshan W Hyponatremia Diabetes mellitus, 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) (Z99.2) 787623153 (SNOMED CT) 0 Active 0/05 Afshan W Renal disorder due to type 2 diabetes mellitus SAL K76.0 (ICD-10-CM ) 0 Active 0/05 Afshan W Fatty (change of) liver, not elsewhere classified Anemia, secondary to acute blood loss 632106484 (SNOMED CT) 0/ Active 0/05 Afshan W Acute posthemorrhagic anemia Anemia in chronic kidney disease 840907241 (SNOMED CT) 0 Active 0/05 Afshan W Anemia of chronic disease Acute confusion 762296409 (SNOMED CT) 0 Active Afshan W Acute confusion Weakness 08317035 (SNOMED CT) Active Afshan [place] Asthenia Medications Medication Instructions Start Date Stop Date Generic Name NDC Provider FIRVANQ SOLR 750mg IV Q 48 hrs /// [facility] ()[phone] VANCOMYCIN HCL SOLR [id number] [facility] LINEZOLID 600 MG TABS Take one (1) tablet by mouth twice a day LINEZOLID [id number] Cayetano Rodriguez MD FLUCONAZOLE 100 MG TABS Take 1 tablet by mouth daily FLUCONAZOLE [id number] Cayetano Rodriguez MD FIRVANQ SOLR 750mg IV Q 48 hrs /// [facility] ()[phone] 09/21 VANCOMYCIN HCL SOLR [id number] [facility] DOXYCYCLINE MONOHYDRATE 100 MG CAPS one cap bid 08/18 DOXYCYCLINE MONOHYDRATE [id number] Cayetano Rodriguez MD VITAMIN D (ERGOCALCIFEROL) 1.25 MG (88057 UT) CAPS once weekly ERGOCALCIFEROL 87694202905 Lynnette Pantoja ONDANSETRON HCL 4 MG TABS Q8H/PRN ONDANSETRON HCL 98904565676 Lynnette Pantoja NIFEDIPINE ER OSMOTIC RELEASE 90 MG [id number] Take by mouth twice a day NIFEDIPINE 10796051566 Lynnette Quinterosx MYCOPHENOLATE MOFETIL 250 MG CAPS Take by mouth twice a day MYCOPHENOLATE MOFETIL 42687239284 Lynnette Quinter[employer]x METOPROLOL TARTRATE 100 MG TABS Take by mouth twice a day METOPROLOL TARTRATE 78841491616 Lynnette Pantoja HUMULIN N 100 UNIT/ML SUSP Subcutaneous, 2 Times Daily Before Meals, 48 units qam and 15 units qhs INSULIN NPH HUMAN (ISOPHANE) 60198966253 Lynnette Pantoja HYDROXYZINE PAMOATE 25 MG CAPS Take one by mouth daily HYDROXYZINE PAMOATE 08317476279 Lynnette Pantoja HYDRALAZINE HCL 50 MG TABS 300 mg, Oral, 3 Times Daily HYDRALAZINE HCL 86342292418 Lynnette Pantoja GABAPENTIN 800 MG TABS 1,200 mg, Oral, 3 Times Daily GABAPENTIN 45026012686 Lynnette Pantoja FAMOTIDINE 20 MG TABS Take by mouth twice a day/PRN FAMOTIDINE 76796415814 Lynnette Pantoja ENTECAVIR 0.5 MG TABS Take one by mouth daily x 7 days ENTECAVIR 41264390776 Lynnette [employer] DOXAZOSIN MESYLATE 8 MG TABS Take one by mouth daily/PRN DOXAZOSIN MESYLATE 22988243714 Lynnette Pantoja CYCLOSPORINE MODIFIED 50 MG CAPS Take by mouth twice a day CYCLOSPORINE MODIFIED 06295394750 Lynnette Pantoja CYCLOBENZAPRINE HCL 10 MG TABS Take one by mouth 3 times daily, morning, afternoon and evening./PRN CYCLOBENZAPRINE HCL 64372715266 Lynnette Pantoja CARBAMAZEPINE 200 MG TABS Take one by mouth daily CARBAMAZEPINE 53083752584 Lynnette Pantoja ADULT ASPIRIN REGIMEN 81 MG ORAL TABLET DELAYED RELEASE Take one by mouth daily ASPIRIN 46704020583 Lynnette Pantoja ALPRAZOLAM 1 MG TABS Take one by mouth daily ALPRAZOLAM 77718629438 Lynnette Vitaled[employer] LISINOPRIL 40 MG TABS Take one by mouth daily LISINOPRIL 98224110636 Lynnette Pantoja HYDROCODONE-ACETAM INOPHEN 5-325 MG TABS Q4H/PRN HYDROCODONE-ACETA MINOPHEN 08328031630 Lynnette Pantoja DOXYCYCLINE HYCLATE 100 MG CAPS Take by mouth twice a day DOXYCYCLINE HYCLATE 20095686261 Lynnette Pantoja FIRVANQ SOLR 750mg IV Q 48 hrs /// [facility] 09/21 VANCOMYCIN HCL SOLR [id number] Genevieve Merrillbbins Medications Administered No information available. Allergies, Adverse Reactions, Alerts No information available. Results Date Name Value Unit Range Flag Description Office Visit: rm 15-tele HFU ORALTOBACUSE Never Tobacco smoking status SMOK STATUS Never smoker Toba tobacco buyer smoking status Clinical Lists Update: WILLIE MEDS REVIEW Done Documenta tion of current medications (procedure) Plan of Care Type Date Detail Pending order Weekly labs Pending order Continue IV anti biotics Pending order Continue oral an tibiotics Procedures No information available. Vital Signs Date Name Value Unit Description Body Temperature 97.9 [degF] temperat ure E&M BP Diastolic 63 mm[Hg] blood pressu re, diastolic BP Systolic 105 mm[Hg] blood pressur e, systolic Heart Rate 104 /min pulse rate Height 67 [in_us] height E&M Immunizations No information available. Advance Directives Directive Description Start Date NO ADVANCED DIRECTIVES ESTABLISHED AT TH IS TIME
--- OUTSIDE RECORDS SUMMARY | 2025-06-03 11:19 | XMS_ITS | Data Portability ---
Author Organization [place] [facility] [place] & SHARLA Acosta ADMIN Address [address] [place] [address] Care Team Providers Care Servomechanism Designer Name Role Phone ONESIMO GARCIA Primary Care Provider Assessment Encounter Date Assessment Date Assessment LastModified by Organization Details LastModified Time 07/24/2023 07/24/2023 The patient is a 48 year old male referred to [facility] by [facility] ([facility]) [...] also request ALIYAH/Nerve conduction study results from [facility]. Due to this patient's history of vertebral osteomyelitis, I will request clearance from Infectious Disease prior to proceeding with DRG trial. * Order: Lumbar X Ray and Lumbar MRI with contrast * Refer: Neurologist (EMG) and Pain Psych * Request: EMG from [facility] * Follow Up: 4 weeks * Plan: [...] __ __ __ __ __ _ SHAKILA: [id number] I have reviewed patient's SHAKILA report prior to prescribing Schedule II, III, and IV medications that require review by law. [email or web address] Not available 07/24/2023 17:39:08 Plan of Treatment Reminders Order Date Submit Date Provider Last Modified By Organization Details Last Modified Time Details Appointments None recorded. Lab C-reactiv e protein, quantitat leigh, serum or plasma 2023 024 [email or web address] [facility], [address], [address], [place], [address], 4 07:17:43 ESR (erythroc yte sedimenta tion rate), blood 2023 024 [email or web address] [facility], [address], [place], [address], 4 07:17:44 HbA1c (hemoglob in A1c), blood 2023 024 [email or web address] [facility], [address], [facility] [address], [place], [address], 4 07:17:[address] referral - BLE EMG/Nerve study; Starting work up for neuromodu lation trial 2022 023 [email or web address] Erika Wood DO, [address] [facility], [place], [address], 4 10:01:18 CLINICAL HEALTH PSYCHOLOG Y/PAIN PSYCHOLOG Y REFERRAL - Assess candidacy for DRG Therapy 2022 023 [email or web address] [facility], [address], [place], [address], 4 09:43:54 Procedures nerve conductio n study/EMG , lower extremity (PROC) 2022 023 [email or web address] Not available 3 12:46:47 Surgeries None recorded. Imaging XR, lumbar spine 2022 023 [facility] ), [address], [place], [address], 3 16:14:51 MRI, lumbar spine, w/ contrast - Assess epidural space and overall bony lead architect ure due to history of laminecto my prior to neuromodu lation trial. 2022 023 [email or web address] ), [address], [place], [address], 4 13:13:10 Medication Orders None recorded. Patient [...] candidacy for DRG Therapy Referring Physician: Christine [facility], Encounter Date: 07/24/2023 Results Created Date Observation Date Name Description Value Unit Range Abnormal Flag Note LastModifiedBy Organization Detail LastModifiedTime 07/25/20 23 07/24/2023 lumba r spine 2 to 3V [facility] [address] [place] [address] Phone: Fax: Name: LEONCIO ROLLINS Exam Date: 2022 : 974 Age 48 Gender : M Access ion: [id number] Physic nelson: CHRISTINE SANTACRUZ Facili ty: [facility] Facili ty HSV: Outpat ient Exam: LUMBAR [...] Thank you for referr LEONCIO Ndiaye to [facility]. Legall y authen ticate d by NANCY NUÑEZ 2022-08 09:01: 55 CC'ed Logic: Orderi ng Provid er: MICHAEL KING Attend ing Provid er: MICHAEL KING Admitt ing Provid er: MICHAEL KING [email or web address] [facility] [address] [facility], [place], [address], 07/26/2023 09:27:55 09/11/19 24 01/01/2018 imagi ng/di agnos tic resul t No observ ation record ed. [email or web address] [place] [id number] [facility] [address], [place], [address], 10/16/2023 10:03:38 09/26/19 24 01/01/2018 imagi ng/di agnos tic resul t No observ ation record ed. [email or web address] [facility] [address] [facility] [address], [place], [address], 10/16/2023 10:04:53 10/09/19 24 01/01/2018 nerve condu ction study No observ ation record ed. [email or web address] [facility] [address] [facility] [address], [place], [address], 10/25/2023 08:29:16 Result Notes None recorded. Problems Name Problem SNOMED Code Status Onset Date Resolution Date Notes Provider Name and Address Organization Details Recorded Time Abdominal pain 32677140 Active 2014 Not Available [facility] 2 11:42:27 Cirrhosis - non-alcoh olic 667559714 Active 2014 Not Available [facility] 2 11:42:27 History of colitis 567335224 Active 2014 Not Available [facility] 2 11:42:28 Dysphagia 48308662 Active 2014 Not Available [facility] 2 11:42:28 Chronic renal failure 17222051 Active 2017 Chronic renal failure Not Available [facility] 2 11:42:26 Blood in urine 42242502 Active 2017 Hematuria Not Available [facility] 2 11:42:27 Benign prostatic hyperplas ia 684357619 Active 2017 Benign prostatic hyperplas ia Not Available [facility] 2 11:42:28 Impotence of organic origin Active 2017 Impotence of organic origin Not Available [facility] 3 13:54:08 Chronic kidney disease stage 5 due to hypertens ion 55344580241 9100 Active 2019 Not Available [facility] 2 11:42:26 Iron deficienc y anemia 03045370 Active 2019 Not Available [facility] 2 11:42:27 Dependenc e on renal dialysis 836550591 Active 2019 Not Available [facility] 2 11:42:27 Obstructi ve sleep apnea syndrome 37698140 Active 2019 Not Available [facility] 2 11:42:27 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 Active 2019 Not Available [facility] 3 13:54:09 Type 2 diabetes mellitus 07355767 Active 2019 Not Available [facility] 2 11:42:27 End-stage renal disease 43362062 Active 2019 Not Available [facility] 2 11:42:27 Esophagea l varices without bleeding 61726718 Active 2019 Not Available [facility] 2 11:42:27 Morbid obesity 525231276 Active 2019 Not Available [facility] 2 11:42:28 Mixed conductiv e and sensorine ural hearing loss, bilateral 037373181 Active 2019 Not Available [facility] 2 11:42:27 Patient encounter status 832208848 Active 2021 Not Available [facility] 2 11:42:26 History of liver recipient 306953098 Active 2021 Not Available [facility] 2 11:42:27 Sensorine ural hearing loss 12760497 Active 2022 ANASTACIA REDYD, AUD [address], [place], [address] , [place] [facility] [place] 3 10:52:33 Paresthes ia of lower extremity 627078164 Active 2022 Erika Wood, DO [address], [place], [address] , [place] [facility] [place] 3 12:46:39 Diabetic periphera l neuropath y 497251590 Active 2023 Erika Wood DO [address], [place], [address] , [place] [facility] [place] 4 12:01:21 Notes:Some problems listed i n Document: #[id number] could not be added to this patient's chart. Please review this document and add these problems to the patient's chart manually as needed. Problem Notes None recorded. Procedures Surgical History Date Name Laterality Status Provider Name and Address Organization Details Recorded Time 08/10/20 23 EMG/ Nerve Conduction Study completed Erika Wood DO [address], [place], [address], [place] [facility] [place] [facility] [place] 08/10/2023 12:46:28 08/14/19 22 open reduction of fracture with internal fixation completed Nadya Dalla [place] [facility] [place] 01/31/2024 11:45:02 08/14/19 21 Back Surgery completed Nadya Dalla [place] [facility] [place] 01/31/2024 11:45:24 08/14/19 18 Abdominal Surgery completed Nadya Dalla [place] [facility] [place] 01/31/2024 11:39:01 Fistula cannulation carlita leary completed Nadya Dalla [place] [facility] [place] 01/31/2024 11:46:01 Imaging Results None recorded. Procedure Notes None recorded. Medical Equipment None Reported. Allergies Allergen ID Allergen Name Allergen Category Reaction Reaction Severity Criticality Documentation Date Start Date Code Code System Note Provider Name and Address Organization Details Recorded Time 9264 codeine medicatio n Not available Not available Not available 04/25/2022 2670 RxNorm React ion: Unkno wn, sever ity: Unkno wn Nadya Guidrymaye z[place], [place] [facility] [place] & [place] 4 07:42:21 Medications Name Sig Start Date [...] every 6 hours as needed for cough 07/24 completed Not Available Not Available Not [...] 30 mg tablet,exte nded release 24 hr 07/31 /2023 completed Not Available Not Available Not [...] propionate 50 mcg/actuati on nasal spray,suspe nsion [place] 2 spray nasALLY once a day as [...] Available pen needle, diabetic 32 gauge x 32 USE DIRECTED active Not Available Not Available [...] Available Not Available Not Available Dexcom G7 Marketing Engineer USE DIRECTED by md active Not Available [...] No t Available Vitals Date Recorded Body height Body temperature Oxygen saturation Oxygen saturation in Arterial blood by Pulse oximetry Heart rate Body mass index (BMI) Body weight Heart rate Provider Name and Address Organization Details Last Updated DateTime 4 175.26 cm 98.1 [degF] 96 % 96 % 98 /min 44.9 kg/m2 503212. 08 g 98 /min Christa Solo [facility] & [place] 4 11:03:15 Date Recorded Body height Body mass index (BMI) Body weight Oxygen saturation Oxygen saturation in Arterial blood by Pulse oximetry Heart rate Systolic And Diastolic Provider Name and Address Organization Details Last Updated DateTime 4 175.26 cm 44.2 kg/m2 423825. 27 g 97 % 97 % 105 /min 180/100 mm[Hg] Nadya Cynthia [facility] & [place] 4 11:47:52 Date Recorded Body weight Body temperature Oxygen saturation Oxygen saturation in Arterial blood by Pulse oximetry Heart rate Systolic And Diastolic Provider Name and Address Organization Details Last Updated DateTime 3 257342. 71 g 98 [degF] 98 % 98 % 71 /min 157/87 mm[Hg] Svetlana Regino [facility] & [place] 3 14:46:05 Date Recorded Body height Body mass index (BMI) Body weight Heart rate Systolic And Diastolic Provider Name and Address Organization Details Last Updated DateTime 08/10/2023 175.26 cm 45.2 kg/m2 845981.2 7 g 103 /min 150/96 mm[Hg] Nadya Guidrymaye [facility] & [place] 08/10/2023 12:49:31 Social History Question Answer Notes LastModified by Organizat ion Details LastModified Time Tobacco Smoking Status Never Smoker Not Available [facility] 04/25/2022 09:50:53 Do You Have An Advance Directive? No Information not available 01/31/2024 Are You Blind Or Do You Have Difficulty Seeing? No Information not available 01/31/2024 What Is Your Level Of Caffeine Consumption? None Information not available 01/31/2024 What Was The Date Of Your Most Recent Tobacco Screening? 07/25/2022 Information not available 01/31/2024 What Is Your Relationship Status? Information not available 01/31/2024 Are You Passively Exposed To Smoke? No Information no t available 01/31/2024 How Much Tobacco Do You Smoke? No Information not available 01/31/2024 How Many Years Have You Smoked Tobacco? 0 Information not available 01/31/2024 Are You Currently In School? No Diploma Information not available 01/31/2024 Sex: Unknown Functional Status Question Answer Note LastModified by Organizat ion Details LastModified Time Do you use any illicit or recreational drugs? No Information not available 01/31/2024 What is your level of alcohol consumption? None Information not available 01/31/2024 Do you or have you ever used smokeless tobacco? Never used smokeless tobacco Information not available 01/31/2024 Are you currently employed? No disabled Information not available 01/31/2024 What is your exercise level? Occasional Information not available 01/31/2024 Mental Status Question Answer Note LastModified by Organization D etails LastModified Time Do you feel stressed (tense, restless, nervous, or anxious, or unable to sleep at night)? [id number] Information not available 01/31/2024 Family History Nothing Reported. Medical History Condition Response Diabetes Y Anxiety Disorder Y Autoimmune disease N Obesity Y Arthritis Y Ear or Hearing Problems Y Hernia Y Back Problems Y Kidney or Bladder Problems Y GI Problems Y Acne Y Anemia Y Reflux/GERD Y Liver Disease Y Headaches Y Hypertension Y Obstructive Sleep Apnea Y Kidney Disease Y Neurological Problems Y Past Encounters Encounter ID Performer Location Encounter Start Date Encounter Closed Date Diagnosis/Indication Diagnosis SNOMED-CT Code Diagnosis ICD10 Code Diagnosis IMO Codes Diagnosis Note [id number] DELMY PERDOMO [facility] [facility], [address] [place] [address] 07/26/2022 10:46:47 07/26/2022 11:16:18 Sensorineural hearing loss 99984366 H90.3 [id number] DELMY PERDOMO [facility] [place] [id number] [facility], [facility] [address] [place] [address] 03/15/2023 09:56:49 03/15/2023 10:11:13 Sensorineural hearing loss 69360802 H90.3 [id number] DELMY PERDOMO [facility] [place] [id number] [facility], [address] [place] [address] 07/11/2023 13:46:50 07/11/2023 14:00:02 Sensorineural hearing loss 60361239 H90.3 [id number] Christine Covington MD [facility] [address] [facility],it e [address] [place] [address] 07/24/2023 14:20:53 07/24/2023 15:23:18 Low back pain 895999121 M54.50 Chronic pa inful neuropathy due to diabetes mellitus 572294709 E11.40 Radicular pain 83678591 M54.10 Post-annika ectomy syndrome 89958367 M96.1 [id number] DO BERNABE Blackman [facility] [address] [facility] [place] [address] 08/10/2023 12:42:40 08/10/2023 13:53:57 Paresthesia of lower extremity 080478571 R20.2 [id number] Michael Maradiaga MD [facility] [address] [address] 08/23/2023 10:56:39 08/23/2023 11:55:01 Chronic low back pain 943143823 M54.50 This is a chronic issue for this patient. He is being considered for spinal stimulator placement. He was sent to pa prior to the procedure. Though he does not recall the exact pathogen, he had an episode of vertebral osteomyeli tis 3 years. Based off his history and exam today, I doubt any ongoing or persistent infection in his spine. Neverthele ss, I want to do additional laboratory work to be sure. I will check his inflammato ry markers today. As I suspect MRSA, I will plan a decoloniza tion regimen for such before he has any spinal stimulator placed. He will follow up with me again in 1 week to discuss his laboratory results and go over the decoloniza tion regimen. [id number] Erika Wood, DO ZZ [facility] [address] [facility],[address] [place] [address] 01/31/2024 11:20:04 01/31/2024 12:21:41 Diabetic peripheral neuropathy 678427734 E11.40 He has chronic neuropathy with progressio n of pain. He is not having good pain control with the current dose of gabapentin but cannot tolerate higher doses. He has failed pregabalin in the past. He has not previously tried duloxetine nor a topical neuro cream for pain management .He is doing well with blood sugar control.He has seen Dr Covington in the past. There has been discussion regarding a possible SCS for his refractory neuropathy . He has been delayed with follow up due to some other health complicati ons. I do feel this could be a good option for him so he will plan to do some further follow up with pain management . We discussed a trial of a topical neuro cream. He is educated on how to use this. A prescripti on will be sent to [facility].D ue to his poor tolerance to gabapentin I would suggest a trial of Duloxetine . I asked him to discuss this medication with his liver and kidney specialist s as I would want their clearance before trying any new medication s. We reviewed good foot care today. Health Concerns Section Related Observation LastModified by Organization Detai ls LastModified Time None Recorded Concern Status LastModified by Organization Details LastModified Time None Recorded Advance Directives Directive N: Payers Insurance Date Sequence Insurance Name Policy Number Policy Asencio Covered Member ID Asencio Member ID Guarantor Name 11/08/2022 [employer] Leoncio Rollins 06/12/2020 2 [place] [facility] [place] - FFS/TRADITIONA L Leoncio Rollins [id number] Leoncio Rollins 11/02/2021 1 [place] Leoncio Rollins Jr [id number] Leoncio Rollins 03/02/2024 2 MEDICAID-[facility] CHO[facility] - FFS/TRADITIONA Mic Rollins [id number] Leoncio Rollins 03/02/2024 1 [place] BCBS OF [facility] MEDIBLUE PLUS (MEDICARE REPLACEMENT HMO) [id number] Leoncio Rollins Jr [id number] Leoncio Rollins Notes Date Note Type Note Provider Name and Address Organization Details Recorded Time 3 text/html Mr. Rollins was seen today for a hearing aid fitting via [facility]. ANASTACIA REDDY, AUD [address] [facility], [place], [address], [facility] & [place] 07/11/2023 14:00:51 3 text/html The patient is a 48 year old male referred to [facility] by [facility] ([facility]) [...] @ bilateral L5 and S1.Back surgery through [facility] Dis[facility] in 2020 resulted in spinal infection (osteomyelitis) underwent IV abx.Blood infection twice in 2020.c/o lumbar pain (surgical scar left lumbar) Order EMGClearance from IDScheduled lumbar MRI this psychologistget EMG report from Serenity Covington MD [address], [place], [address], [facility] & [place] 07/26/2023 11:48:57 4 text/html ROS as noted in the HPI This is a 48-year-old white male with a very complex medical history including end-stage renal disease, past liver transplant, cirrhosis, hepatitis B, type 2 diabetes mellitus, and obesity. He is being sent to pa pre procedure. He is being considered for a spinal stimulator related to chronic back pain. He has no physical complaints today. 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 He was treated at the [facility]. He does not remember the exact bacteria. However, he completed several weeks of intravenous antibiotic therapy. He did not have any hardware inserted and did not require surgery for the infection. Michael Maradiaga MD [address], [place], [address], [facility] & [place] 08/23/2023 11:48:49 4 text/html 48 y/o right [...] issues which has halted that workup. Erika Wood, DO [address], [place], [address], [facility] [place] & [place] 01/31/2024 12:30:42
--- OUTSIDE RECORDS SUMMARY | 2025-06-03 11:19 | XMS_ITS | Patient Health Record ---
Author Organization [facility] Address [address] [place] [address] Care Team Providers Care Napper Fixer Name Role Phone AARTI BRITO Unavailable [phone] Reason For Referral No Information Medications Medication SIG (Take, Route, Frequency, Duration) Notes Start Date End Date Status Methocarbamol 500 MG 1 tablet Orally Fou r times a day Active Montelukast Sodium 10 MG 1 tablet Orally Once a day Active ALPRAZolam 0.5 MG 1 tablet Orally QD Active Lisinopril 40 MG 1 tablet Orally Once a day Active Lokelma 10 GM 1 packet dissolved i n water Orally ON MONDAY Active Pantoprazole Sodium 40 MG 1 tablet Orally THREE TIMES A DAY Active Calcium Acetate 668 (169 Ca) MG 3 tablets with meals Orally Three times a day Active Promethazine HCl 12.5 MG 2 TABLET Orally AT BEDTIME Active Carvedilol 25 MG 2 tablet with food Orally Twice a day TOTAL OF 50MG TWICE A DAY Active Aspirin 81 MG 1 tablet Orally Once a day Active NIFEdipine ER 90 MG 1 tablet on an empty stomach Orally TWICE A DAY Active Calcium Acetate 667 MG 1 TABLET Orally T hree times a day Active Cardura 8 MG 1 tablet Orally Once a day Active Cinacalcet HCl 60 MG 1 tablet with food or after a meal Orally Once a day Active Sevelamer Carbonate 800 MG 2 TABLETS Orally Three times a day Active CellCept 250 MG 1 capsules Orally Twice a day Active Testosterone Cypionate 200 MG/ML 1 mL Intramuscular ONCE A MONTH Active carBAMazepine 200 MG 1 tablet Orally Twi ce a day Active Vascepa 1 GM 2 capsules with meal s Orally Twice a day Active Entecavir 0.5 MG 1 tablet on an empty stomach Orally ONCE A WEEK Active Vitamin D (Ergocalciferol) 33863 UNIT 1 capsule Orally EVERY , , , MONDAY Active cycloSPORINE 25 MG 100MG Orally Twice a day Active Folic Acid 1 MG 1 tablet Orally Once a day Active Gabapentin 400 MG 1 tablet Orally ONCE A DAY Active Fenofibrate 134 MG 1 capsule with a guerita l Orally Once a day Active Flonase Allergy Relief 50 MCG/ACT 2 spray in each nostril Nasally Once a day Active Iron 325 (65 Fe) MG 1 tablet Orally Once a day Active HumuLIN N 100 UNIT/ML as directed Subcutaneous Active hydrALAZINE HCl 100 MG 1 tablet with geneva d Orally Three times a day Active Problems Problem Type SNOMED Code ICD Code Onset Dates Problem Status W/U Status Risk Notes Problem Anemia in chronic kidney disease (321471813) Anemia in chronic kidney disease (D63.1) Active confirmed Problem Hyperkalemia (26549824) Hyperkalemia (E87.5) Active confirmed Problem End stage renal disease (75573496) End stage renal disease (N18.6) Active confirmed Problem Benign hypertension (60313562) Benign hypertension (I10) Active confirmed Problem Diarrhea of presumed infectious origin (70201839) Diarrhea of presumed infectious origin (A09) Active confirmed Problem Dependence on hemodialysis (781293886) Dependence on hemodialysis (Z99.2) Active confirmed Plan Of Treatment No Information Insurance Providers Payer Name Payer Address Payer Phone Subscriber Number Group Number Insured Name Patient Relationship to Insured Coverage Start Date Coverage End Date BCBS MEDICARE [address] [place] [address] [id number] LEONCIO ROLLINS Self - patient is the insured Medicaid of [place] [address] [place] [address] [phone] [id number] LEONCIO ROLLINS Self - patient is the insured Medical (General) History Medical History History ICD Code ANEMIA, CKD, HYPERKALEMIA, END STAGE ESTELITA AL DISEASE, HERNIA HYPERLIPIDEMIA, HTN, ANXIETY, ALLERGIES, LOW TESTOSTERONE DIABETES, GERD, Surgical History Surgery Date(Month/Year) TUNNEL FISTULA 09/14/2022 LIVER TRANSPLANT
[2025-06-03 11:55] LABS: Hematocrit 45.2 % (42.0-52.0); Hemoglobin 13.7 g/dL (14.1-18.0); Immature Granulocytes % 4.2 %; Mean Corpuscular HGB Conc 30.3 g/dL (31.8-35.4); Mean Corpuscular Hemoglobin 30.5 pg (27.0-31.2); Mean Corpuscular Volume 100.7 fl (80-94); Nucleated Red Blood Cells % 0.5 %; Platelet Count 241 K/mm3 (142-424); Red Blood Count 4.49 M/mm3 (4.60-6.20); Red Cell Distribution Width-SD 60.9 fL; White Blood Count 4.3 K/mm3 (4.8-10.8)
[2025-06-03 13:02] LABS: Albumin Level 4.4 g/dl (3.5-5.0); Bilirubin,Unconjugated 0.0 mg/dL (0.0-1.1); Blood Urea Nitrogen 63 mg/dl (9-20); Carbon Dioxide 17 mmol/L (22.0-30.0); Chloride 103 mmol/L (98-107); Estimated Glomerular Filt Rate 5 ml/min (>60); GFR (African American) 7 ML/MIN (>60); Phosphorous 4.7 mg/dl (2.5-4.5); Total Protein,Serum 7.0 g/dl (6.3-8.2)
[2025-06-03 13:03] LABS: Alanine Aminotransferase 13 U/L (12-78); Alkaline Phosphatase 96 U/L (38-126); Anion Gap 24.7 mEq/L (5-15); Aspartate Amino Transferase 18 U/L (17-59); Calcium 8.5 mg/dl (8.4-10.2); Glucose 165 mg/dl (74-100); Sodium 138 mmol/L (136-145)
[2025-06-03 13:15] LABS: Creatinine,Serum 10.20 mg/dl (0.66-1.25); Potassium 6.7 mmoL/L (3.5-5.1)
[2025-06-03 13:26] LABS: Bilirubin,Direct 0.7 mg/dl (0.0-0.4); Bilirubin,Indirect 0.0 mg/dL (0.0-0.9)
[2025-06-03 13:32] LABS: Bilirubin,Total 0.7 mg/dl (0.2-1.3)
== END 2025-06-03 23:59 | disposition home or self-care (01) ==
LOC: LAB 11:17
PROVIDERS: PCP Family Medicine; Visit Provider Internal Medicine
DX: Z79.899 Other long term (current) drug therapy (principal); Z94.4 Liver transplant status
CPT/HCPCS: 36415; 80069; 80076; 80158; 85025

== ENCOUNTER 2025-06-10 12:38 | Outpatient (CLI) | payer MEDICARE, MEDICAID, SELFPAY ==
--- OUTSIDE RECORDS SUMMARY | 2025-04-21 09:41 | XMS_ITS | Encounter Summary ---
Author Organization [facility] Address [address] [place] [id number] Care Team Providers Care Bookseamer Blindstitch Name Role Phone Maile Valles RN Unavailable Unavail able Jack Ordoñez MD Unavailable [phone] Estephania Sharif PharmD Unavailable Christine Edgar Tolentino MD Primary Care Provider [phone] Source Comments This information has been disclosed [...] release of HIV test results or diagnoses. [id number] Reason for Referral * Imaging/Cardiovascular Scan (Routine) - Closed Specialty Diagnoses / Procedures Referred By Contac t Referred To Contact Cardiology Diagnoses Essential (primary) hypertension Type 2 diabetes 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, with long-term current use of insulin ([facility]) ESRD (end stage renal disease) on dialysis ([facility]) Pre-transplant evaluation for kidney transplant Procedures Transthoracic Echo (TTE) Limited Destin Rawls MD [address] [facility] [address] [place] [address] Phone: tel: fax: Referral ID Status Reason Start Date Expiration Date Visits Re quested Visits Authorized [id number] Closed 02/24/2025 08/23/2025 1 1 Reason for Visit * Auth/Cert (Routine) Specialty Diagnoses / Procedures Referred By Contac t Referred To Contact Cardiology Echocardiography at [facility] Office [address] [facility] [address] [place] [address] Phone: tel: fax: Referral ID Status Reason Start Date Expiration Date Visits Re quested Visits Authorized [id number] 1 1 Encounter Details Date Type Department Care Team (Late st Contact Info) Description 04/21/2025 9:41 AM EDT - 04/21/2025 11:59 PM EDT Hospital Encounter Echocardiography at [facility] Office [address] [facility] [address] [place] [id number] Destin Rawls MD [address] [facility] [address] [facility] [place], [place] [id number] Essential (primary) hypertension; Type 2 diabetes 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, with long-term current use of insulin ([facility] ESRD (end stage renal disease) on dialysis ([facility]); Pre-transplant evaluation for kidney transplant Discharge Disposition: Home or Self Care WITHOUT Home Care Services Social History Tobacco Use Types Packs/Day Years Used Date Smoking Tobacco: Never Smokeless Tobacco: Never Alcohol Use Standard Drinks/Week Comments Never 0 (1 standard drink = 0.6 oz pur e alcohol) Utilities Answer Date Recorded In the past 12 months has [employer], gas, oil, or water [employer] threatened to shut off services in your home? No 12/03/2024 AUDIT-C Answer Date Recorded Q1: How often do you have a drink containing alcohol? Never 12/03/2024 Q2: How many drinks containi ng alcohol do you have on a typical day when you are drinking? Patient does not drink 5 Q3: How often do you have si x or more drinks on one occasion? Never 12/03/2024 PHQ-2 Answer Date Recorded PHQ-2 Total Score 0 04/21/2025 Hunger Vital Sign Answer Date Recorded Within the past 12 months, y ou worried that your food would run out before you got the money to buy more. Never true 12/04/19 25 Within the past 12 months, t he food you bought just didn't last and you didn't have money to get more. Never true 12/03/2024 PRAPARE - Transportation Answer Date Re corded In the past 12 months, has l ack of transportation kept you from medical appointments or from getting medications? No 11/13 In the past 12 months, has l ack of transportation kept you from meetings, work, or from getting things needed for daily living? No 12/03/2024 Housing Stability Vital Sign Answer Gilbert e [...] the mortgage or rent on time? No 12/03/2024 In the past 12 months, how m any times have you moved where you were living? 0 12/03/2024 At any time in the past 12 m [facility], were you homeless or living in a penitentiary (including now)? No 12/03/2024 Yearly Questionnaire Answer Date Record ed Do you need any assistance w ith obtaining housing, meals, medication, transportation or medical equipment? No 04/21 Assistance needed for: Not on file Yearly Questionnaire Answer Date Record ed Do you need any assistance w ith obtaining housing, meals, medication, transportation or medical equipment? No 04/21 Assistance needed for: Not on file Yearly Questionnaire Answer Date Record ed Do you need any assistance w ith obtaining housing, meals, medication, transportation or medical equipment? No 04/21 Assistance needed for: Not on file Sex and Gender Information Value Date Recorded [...] daily with breakfast. 30 tablet 5 8 calcium carbonate 1250 mg tablet, 500 mg elemental calcium, (OS-NI) 500 mg calcium (1,250 mg) tablet Take 1 tablet (1,250 mg total) by mouth 3 times a day. 46 tablet 12/08/2024 12:06 PM EDT 5 carBAMazepine (TEGRETOL) 200 mg tablet Take 1 tablet (200 mg total) by mouth 2 times a day. carvediloL (COREG) 25 MG tablet Take 2 tablets (50 mg total) by mouth 2 times a day. 180 tablet 3 4 cycloSPORINE modified 25 MG capsuleIndications: Prevention of Liver Transplant Rejection Take 4 capsules (100 mg total) by mouth every morning AND 5 capsules (125 mg total) at bedtime. 810 capsule 1 05/27/2025 3:45 PM EDT 5 doxazosin (CARDURA) 8 MG tablet Take 1 tablet (8 mg total) by mouth at bedtime. 8 entecavir (BARACLUDE) 0.5 MG tablet Take 1 tablet (0.5 mg total) by mouth every 7 days. On Wednesdays 4 tablet 5 ergocalciferol (ERGOCALCIFEROL) 1,250 mcg (50,000 unit) capsule Take 1 capsule (50,000 Units total) by mouth Every Monday, , and Monday. fenofibrate micronized (LOFIBRA) 134 MG capsule Take 1 capsule (134 mg total) by mouth before breakfast. fexofenadine (FRANCOIS) 180 MG tablet Take 1 tablet (180 mg total) by mouth daily. am folic acid (FOLVITE) 1 MG tablet Take 1 tablet (1 mg total) by mouth daily. 30 tablet 2 hydrALAZINE (APRESOLINE) 100 MG tablet Take 1 tablet (100 mg total) by mouth every 8 hours. icosapent ethyL (VASCEPA) 1 gram Cap Take 2 capsules (2 g total) by mouth in the morning and at bedtime. insulin aspart U-100 (NOVOLOG) 100 unit/mL injection Inject 5 Units subcutaneously 3 times a day with meals. insulin NPH (HUMULIN N NPH U-100 INSULIN) 100 unit/mL injection Inject 30 Units subcutaneously if needed (patient reports he is on only humulin and novolog). ipratropium (ATROVENT) 42 mcg (0.06 %) nasal spray if needed for Rhinitis. 5 metoprolol succinate (TOPROL-XL) 25 MG 24 hr tablet Take 1 tablet (25 mg total) by mouth daily. Am or pm montelukast (SINGULAIR) 10 mg tablet Take 1 tablet (10 mg total) by mouth daily as needed. pm 2 mycophenolate (CELLCEPT) 250 mg capsule Take 1 capsule (250 mg total) by mouth 2 times a day. 180 capsule 1 05/27/2025 3:45 PM EDT 5 NIFEdipine (PROCARDIA-XL) 90 MG (OSM) 24 hr tablet Take 1 tablet (90 mg total) by mouth 2 times a day. 8 ondansetron (ZOFRAN-ODT) 4 MG disintegrating tablet Take 1 tablet (4 mg total) by mouth every 8 hours as needed for Nausea. pantoprazole (PROTONIX) 40 MG tablet Take 1 tablet (40 mg total) by mouth 2 times a day. 60 tablet 5 05/09/2022 3:28 PM EDT 2 polyethylene glycol (MIRALAX) 17 gram/dose powder Mix one capful (17 g) into 8 oz of liquid and drink daily as instructed. 238 g 12/08/2024 12:06 PM EDT 5 proMETHazine-dextro methorphan (PROMETHAZINE-DM) 6.25-15 mg/5 mL syrup if needed for Cough. tenapanor 30 mg Tab Take 30 mg by mouth 2 times a day. Am,pm testosterone cypionate (DEPOTESTOTERONE CYPIONATE) 200 mg/mL injection Inject into the muscle every 28 days. documented as of this encounter Plan of Treatment Upcoming Encounters Date Type Department Care Team (Latest Contact Info) Description 06/12/2025 1:59 PM EDT Hospital Encounter [facility] Cardiac International [employer] Compliance Manager [address] [place] [address] Cuong Dobson MD [address] [facility] [place] [address] Essential (primary) hypertension; Type 2 diabetes 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, with long-term current use of insulin ([facility] ESRD (end stage renal disease) on dialysis ([facility]); Pre-transplant evaluation for kidney transplant; High risk surgery, pre-operative cardiovascular examination 06/12/2025 1:59 PM EDT - 06/12/2025 3:00 PM EDT Surgery [facility] Cardiac International [employer] Compliance Manager [address] [place] [address] Cuong Dobson MD [address] [facility] [place] [address] Left and Right Heart Cath documented as of this encounter Procedures Procedure Name Priority Date/Time Associated Diagnosis Comments ECHO LIMITED W/ DOPPLER AND STRAIN Routine 04/21/2025 11:05 AM EDT Essential (primary) hypertension Type 2 diabetes 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, with long-term current use of insulin ([facility]) ESRD (end stage renal disease) on dialysis ([facility]) Pre-transplant evaluation for kidney transplant documented in this encounter Results * ECHO LIMITED W/ DOPPLER AND STRAIN (04/21/2025 11:05 AM EDT) Anatomical Region Laterality Modality Chest Ultrasound 04/21/2025 10:3 7 AM EDT Narrative 04/25/2025 11:46 AM EDT * [facility] - Echocardiology Lab* [address] [facility], [address] [place] [address] Transthoracic Echocardiogram Patient: Aiden Stauffer Room: ECHO LAB Height: 69in MR Number: [id number] : 1975 Weight: 278lb Account: [id number] Gender: M BP: 155 / 93 Study Date: 04/21/2025 Age: 50 BSA: 2.54m^2 Referring physician: Destin Rawls Interpreting physician: Thania Carvajal MD PERFORMING [facility]-Thania Carvajal LOG TUMBLER Elsie Carrero [facility] RVT ORDERING Destin Rawls REFERRING Destin Rawls ATTENDING Destin Rawls Procedure:TRANSTHORACIC ECHO (TTE) Order: Accession LIMITED Number:[id number] Indications: Essential hypertension (I10). Type 2 diabetes 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, with long-term current use of insulin (E11.22). ESRD (end stage renal disease) on dialysis (N18.6). Pre-transplant evaluation for kidney transplant (Z01.818). PMH: JC. Study data: Height: 69in. 175.3cm. Weight: 278lb. 126.1kg. Procedure: A transthoracic echocardiogram was performed. Image quality was adequate. The study was technically limited due to poor acoustic window availability and body habitus. Scanning was performed from the parasternal, apical, and subcostal acoustic windows. Transthoracic echocardiogram. M-mode, limited 2D, limited spectral Doppler, and color Doppler. Birthdate: Patient birthdate: 1975. Age: Patient is 50year(s) old. Sex: gender: male. Body mass index: BMI: 41kg/m^2. Body surface area: BSA: 2.54m^2. Blood pressure: 155/93 Study date: Study date: 04/21/2025. Study time: 10:37 AM. Location: Echo laboratory. Study Conclusions - Left ventricle: The cavity size is normal. Wall thickness was increased in a pattern of mild LVH. Systolic function is normal. The estimated ejection fraction is 50-55%. Wall motion is normal; there are no regional wall motion abnormalities. Cannot assess LV diastolic function. - Ventricular septum: Abnormal septal motion. Septal motion is dyssynergic. - Aortic valve: There is mild thickening. - Right ventricle: The cavity size is normal. Systolic function is reduced. TAPSE: 1.2cm. - Pulmonary arteries: Systolic pressure could not be accurately estimated. - ECG: Appears atrial fibrillation/flutter. Consider correlation with ambulatory monitoring. Cardiac Anatomy Left ventricle: - The cavity size is normal. Wall thickness was increased in a pattern of mild LVH. Systolic function is normal. The estimated ejection fraction is 50-55%. Wall motion is normal; there are no regional wall motion abnormalities. - Cannot assess LV diastolic function. Aorta: Aortic root: The root is normal in size. Aortic valve: - Trileaflet There is mild thickening. Mitral valve: - The valve is structurally normal. Mobility is not restricted. Inflow velocity is within the normal range. There is no evidence for stenosis. The peak diastolic gradient is 6mm Hg. The valve area by pressure half-time is 5.9cm^2. The valve area index by pressure half-time is 2.31cm^2/m^2. Left atrium: The atrium is normal in size. Pulmonary artery: - Systolic pressure could not be accurately estimated. Right ventricle: - The cavity size is normal. Systolic function is reduced. TAPSE: 1.2cm. Ventricular septum: Abnormal septal motion. Septal motion is dyssynergic. Pulmonic valve: - Poorly visualized. Tricuspid valve: - The valve is structurally normal. Right atrium: The atrium is normal in size. Pericardium: - There is no pericardial effusion. Systemic veins: Inferior vena cava: The IVC is poorly visualized. Measurements Left ventricle Value Ref 05/21/2024 GLS, 2D -9.15 % --------- GINA, LAX (N) 4.2 cm 4.2 - 5.8 5.4 ESD, LAX (N) 2.8 cm 2.5 - 4.0 4.2 GINA/bsa, LAX (L) 1.7 cm/m^2 2.2 - 3.0 2.1 ESD/bsa, LAX (L) 1.1 cm/m^2 1.3 - 2.1 1.6 FS, LAX (N) 34 % 22 FS, LAX chord (N) 34 % 22 ESD major ax, 7.6 cm --------- A4C ESD/bsa major 3.0 cm/m^2 --------- ax, A4C GINA minor ax, 7.6 cm --------- A4C GINA/bsa minor 3.0 cm/m^2 --------- ax, A4C GINA major ax, 8.7 cm --------- A2C ESD major ax, 6.3 cm --------- A2C GINA/bsa major 3.4 cm/m^2 --------- ax, A2C ESD/bsa major 2.5 cm/m^2 --------- ax, A2C IVS, ED (H) 1.7 cm 0.6 - 1.0 1.2 ESD (N) 2.8 cm 2.5 - 4.0 4.2 ESD/bsa (L) 1.1 cm/m^2 1.3 - 2.1 1.6 FS (N) 34 % 22 PW, ED (H) 1.4 cm 0.6 - 1.0 1.0 IVS/PW, ED 1.24 --------- 1.23 ESV (N) 29 ml 21 - 61 77 EF (N) 64 % 52 - 72 44 SV 29 ml --------- 77 ESV/bsa (N) 11 ml/m^2 11 - 31 30 SV/bsa 11 ml/m^2 --------- 30 EDV, 1-p A2C (L) 38 ml 59 - 175 ESV, 1-p A2C (N) 24 ml 15 - 75 EF, 1-p A2C (N) 63 % 48 - 76 SV, 1-p A2C 51 ml --------- 61 EDV/bsa, 1-p (L) 15 ml/m^2 31 - 87 A2C ESV/bsa, 1-p (N) 9 ml/m^2 9 - 37 A2C SV/bsa, 1-p A2C 20.2 ml/m^2 --------- 23.6 EDV, 1-p A4C (L) 51 ml 69 - 185 ESV, 1-p A4C (L) 20 ml 22 - 78 EF, 1-p A4C (N) 60 % 46 - 74 SV, 1-p A4C 31 ml --------- 81 EDV/bsa, 1-p (L) 20 ml/m^2 37 - 93 A4C ESV/bsa, 1-p (L) 8 ml/m^2 12 - 40 A4C SV/bsa, 1-p A4C 12 ml/m^2 --------- 31 EDV, 2-p (L) 46 ml 62 - 150 ESV, 2-p (L) 18 ml 21 - 61 EF, 2-p (N) 63 % 52 - 72 SV, 2-p 14 ml --------- EDV/bsa, 2-p (L) 18 ml/m^2 34 - 74 ESV/bsa, 2-p (L) 7 ml/m^2 11 - 31 SV/bsa, 2-p 5.5 ml/m^2 --------- E', lat denilson, (N) 12.9 cm/sec >=10.0 13.5 TDI E/e', lat denilson, (N) 10 <=13 11 TDI A', lat denilson, 5.0 cm/sec --------- 7.0 TDI E'/a', lat denilson, 2.57 --------- 1.93 TDI S', lat denilson, 7.0 cm/sec --------- 6.0 TDI E', med denilson, (L) 6.7 cm/sec >=7.0 9.6 TDI E/e', med denilson, 19 --------- 16 TDI A', med denilson, 4.0 cm/sec --------- 5.0 TDI E'/a', med denilson, 1.67 --------- 1.92 TDI S', med denilson, 5.0 cm/sec --------- 5.0 TDI E', avg, TDI 9.8 cm/sec --------- 11.6 E/e', avg, TDI (N) 13 <=14 13 Right ventricle Value Ref 05/21/2024 GINA, LAX 3.3 cm --------- 4.3 Left atrium Value Ref 05/21/2024 LA ID 3.6 cm --------- 4.9 SI dim, A4C 4.8 cm --------- 7.2 Area ES, A4C (N) 17 cm^2 <=20 27 Area/bsa ES, 6.65 cm^2/m^2 --------- 10.27 A4C Area ES, A2C 17 cm^2 --------- 26 Area/bsa ES, 6.62 cm^2/m^2 --------- 10.14 A2C SI dim, A2C 4.9 cm --------- 6.2 SI dim, shorter 4.8 cm --------- 6.2 Vol, S (N) 50 ml 18 - 58 97 Vol/bsa, S (N) 20 ml/m^2 16 - 34 37 Vol, ES, 1-p (N) 48 ml 18 - 58 78 A4C Vol/bsa, ES, (N) 19 ml/m^2 12 - 37 30 1-p A4C Vol, ES, 1-p (N) 47 ml 18 - 58 91 A2C Vol/bsa, ES, (N) 19 ml/m^2 11 - 43 35 1-p A2C Vol, ES, 2-p 50 ml --------- 97 Vol/bsa, ES, (N) 20 ml/m^2 16 - 34 37 2-p Vol, ES, A/L 50 ml --------- 97 Vol/bsa, ES, (N) 20 ml/m^2 16 - 34 37 A/L Mitral valve Value Ref 05/21/2024 Peak E 1.24 m/sec --------- 1.5 Peak A 0.45 m/sec --------- 0.23 Decel slope 955.88 cm/s^2 --------- 1352.08 Decel time 129 ms --------- 111 PHT 38 ms --------- 32 Peak grad, D 6 mm Hg --------- 12 Peak E/A ratio 2.76 --------- 6.6 MVA, PHT 5.9 cm^2 --------- 6.9 MVA/bsa, PHT 2.31 cm^2/m^2 --------- 2.63 Aortic root Value Ref 05/21/2024 Root diam (N) 3.4 cm 3.1 - 4.5 Root diam/bsa 1.3 cm/m^2 --------- Ascending aorta Value Ref 05/21/2024 AAo AP diam, S 3.0 cm --------- 3.1 AAo AP 1.2 cm/m^2 --------- 1.2 diam/bsa, S Legend: (L) and (H) krunal values outside specified reference range. (N) moran values inside specified reference range. Reviewed and confirmed by Thania Carvajal MD [id number] Procedure Note Thania Carvajal MD - 04/25/2025 * [facility] - EchocardiologyLab* [address] [place] [address], [place] [address] Transthoracic Echocardiogram Patient: Aiden Stauffer Room: ECHO LAB Height: 69in MR Number: [id number] : 1975 Weight: 278lb Account: [id number] Gender: M BP: 155 / 93 Study Date: 04/21/2025 Age: 50 BSA: 2.54m^2 Referring physician: Destin Rawls Interpreting physician: Thania Carvajal MD PERFORMING [facility] Carvajal LOG TUMBLER Elsie Carrero [facility] ORDERING Destin Rawls REFERRING Destin Rawls ATTENDING Destin Rawls Procedure:TRANSTHORACIC ECHO (TTE) Order: Accession LIMITED Number:[id number] Indications: Essential hypertension (I10). Type 2 diabetes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, with long-term current use ofinsulin (E11.22). ESRD (end stage renal disease) on dialysis (N18.6). Pre-transplant evaluation for kidney transplant (Z01.818). PMH: JC. Study data: Height: 69in. 175.3cm. Weight: 278lb. 126.1kg. Procedure:A transthoracic echocardiogram was performed. Image quality was adequate.The study was technically limited due to poor acoustic window availabilityand body habitus. Scanning was performed from the parasternal, apical, and subcostal acoustic windows. Transthoracic echocardiogram.M-mode, limited 2D, limited spectral Doppler, and color Doppler. Birthdate: Patient birthdate: 1975. Age: Patient is 50year(s) old. Sex: gender: male. Body mass index: BMI: 41kg/m^2. Body surface area:BSA: 2.54m^2. Blood pressure: 155/93 Study date: Study date:04/21/2025. Study time: 10:37 AM. Location: Echo laboratory. Study Conclusions - Left ventricle: The cavity size is normal. Wall thickness was increasedin a pattern of mild LVH. Systolic function is normal. The estimatedejection fraction is 50-55%. Wall motion is normal; there are no regional wall motion abnormalities. Cannot assess LV diastolic function. - Ventricular septum: Abnormal septal motion. Septal motion isdyssynergic. - Aortic valve: There is mild thickening. - Right ventricle: The cavity size is normal. Systolic function isreduced. TAPSE: 1.2cm. - Pulmonary arteries: Systolic pressure could not be accuratelyestimated. - ECG: Appears atrial fibrillation/flutter. Consider correlation with ambulatory monitoring. Cardiac Anatomy Left ventricle: - The cavity size is normal. Wall thickness was increased in a patternof mild LVH. Systolic function is normal. The estimated ejection fractionis 50-55%. Wall motion is normal; there are no regional wall motion abnormalities. - Cannot assess LV diastolic function. Aorta: Aortic root: The root is normal in size. Aortic valve: - Trileaflet There is mild thickening. Mitral valve: - The valve is structurally normal. Mobility is not restricted. Inflow velocity is within the normal range. There is no evidence forstenosis. The peak diastolic gradient is 6mm Hg. The valve area by pressure half-time is 5.9cm^2. The valve area index by pressure half-time is 2.31cm^2/m^2. Left atrium: The atrium is normal in size. Pulmonary artery: - Systolic pressure could not be accurately estimated. Right ventricle: - The cavity size is normal. Systolic function is reduced. TAPSE: 1.2cm. Ventricular septum: Abnormal septal motion. Septal motion isdyssynergic. Pulmonic valve: - Poorly visualized. Tricuspid valve: - The valve is structurally normal. Right atrium: The atrium is normal in size. Pericardium: - There is no pericardial effusion. Systemic veins: Inferior vena cava: The IVC is poorly visualized. Measurements Left ventricle Value Ref 05/21/2024 GLS, 2D -9.15 % --------- GINA, LAX (N) 4.2 cm 4.2 - 5.8 5.4 ESD, LAX (N) 2.8 cm 2.5 - 4.0 4.2 GINA/bsa, LAX (L) 1.7 cm/m^2 2.2 - 3.0 2.1 ESD/bsa, LAX (L) 1.1 cm/m^2 1.3 - 2.1 1.6 FS, LAX (N) 34 % 22 FS, LAX chord (N) 34 % 22 ESD major ax, 7.6 cm --------- A4C ESD/bsa major 3.0 cm/m^2 --------- ax, A4C GINA minor ax, 7.6 cm --------- A4C GINA/bsa minor 3.0 cm/m^2 --------- ax, A4C GINA major ax, 8.7 cm --------- A2C ESD major ax, 6.3 cm --------- A2C GINA/bsa major 3.4 cm/m^2 --------- ax, A2C ESD/bsa major 2.5 cm/m^2 --------- ax, A2C IVS, ED (H) 1.7 cm 0.6 - 1.0 1.2 ESD (N) 2.8 cm 2.5 - 4.0 4.2 ESD/bsa (L) 1.1 cm/m^2 1.3 - 2.1 1.6 FS (N) 34 % 25 - 43 22 PW, ED (H) 1.4 cm 0.6 - 1.0 1.0 IVS/PW, ED 1.24 --------- 1.23 ESV (N) 29 ml 21 - 61 77 EF (N) 64 % 52 - 72 44 SV 29 ml --------- 77 ESV/bsa (N) 11 ml/m^2 11 - 31 30 SV/bsa 11 ml/m^2 --------- 30 EDV, 1-p A2C (L) 38 ml 59 - 175 ESV, 1-p A2C (N) 24 ml 15 - 75 EF, 1-p A2C (N) 63 % 48 - 76 SV, 1-p A2C 51 ml --------- 61 EDV/bsa, 1-p (L) 15 ml/m^2 31 - 87 A2C ESV/bsa, 1-p (N) 9 ml/m^2 9 - 37 A2C SV/bsa, 1-p A2C 20.2 ml/m^2 --------- 23.6 EDV, 1-p A4C (L) 51 ml 69 - 185 ESV, 1-p A4C (L) 20 ml 22 - 78 EF, 1-p A4C (N) 60 % 46 - 74 SV, 1-p A4C 31 ml --------- 81 EDV/bsa, 1-p (L) 20 ml/m^2 37 - 93 A4C ESV/bsa, 1-p (L) 8 ml/m^2 12 - 40 A4C SV/bsa, 1-p A4C 12 ml/m^2 --------- 31 EDV, 2-p (L) 46 ml 62 - 150 ESV, 2-p (L) 18 ml 21 - 61 EF, 2-p (N) 63 % 52 - 72 SV, 2-p 14 ml --------- EDV/bsa, 2-p (L) 18 ml/m^2 34 - 74 ESV/bsa, 2-p (L) 7 ml/m^2 11 - 31 SV/bsa, 2-p 5.5 ml/m^2 --------- E', lat denilson, (N) 12.9 cm/sec >=10.0 13.5 TDI E/e', lat denilson, (N) 10 <=13 11 TDI A', lat denilson, 5.0 cm/sec --------- 7.0 TDI E'/a', lat denilson, 2.57 --------- 1.93 TDI S', lat denilson, 7.0 cm/sec --------- 6.0 TDI E', med denilson, (L) 6.7 cm/sec >=7.0 9.6 TDI E/e', med denilson, 19 --------- 16 TDI A', med denilson, 4.0 cm/sec --------- 5.0 TDI E'/a', med denilson, 1.67 --------- 1.92 TDI S', med denilson, 5.0 cm/sec --------- 5.0 TDI E', avg, TDI 9.8 cm/sec --------- 11.6 E/e', avg, TDI (N) 13 <=14 13 Right ventricle Value Ref 05/21/2024 GINA, LAX 3.3 cm --------- 4.3 Left atrium Value Ref 05/21/2024 LA ID 3.6 cm --------- 4.9 SI dim, A4C 4.8 cm --------- 7.2 Area ES, A4C (N) 17 cm^2 <=20 27 Area/bsa ES, 6.65 cm^2/m^2 --------- 10.27 A4C Area ES, A2C 17 cm^2 --------- 26 Area/bsa ES, 6.62 cm^2/m^2 --------- 10.14 A2C SI dim, A2C 4.9 cm --------- 6.2 SI dim, shorter 4.8 cm --------- 6.2 Vol, S (N) 50 ml 18 - 58 97 Vol/bsa, S (N) 20 ml/m^2 16 - 34 37 Vol, ES, 1-p (N) 48 ml 18 - 58 78 A4C Vol/bsa, ES, (N) 19 ml/m^2 12 - 37 30 1-p A4C Vol, ES, 1-p (N) 47 ml 18 - 58 91 A2C Vol/bsa, ES, (N) 19 ml/m^2 11 - 43 35 1-p A2C Vol, ES, 2-p 50 ml --------- 97 Vol/bsa, ES, (N) 20 ml/m^2 16 - 34 37 2-p Vol, ES, A/L 50 ml --------- 97 Vol/bsa, ES, (N) 20 ml/m^2 16 - 34 37 A/L Mitral valve Value Ref 05/21/2024 Peak E 1.24 m/sec --------- 1.5 Peak A 0.45 m/sec --------- 0.23 Decel slope 955.88 cm/s^2 --------- 1352.08 Decel time 129 ms --------- 111 PHT 38 ms --------- 32 Peak grad, D 6 mm Hg --------- 12 Peak E/A ratio 2.76 --------- 6.6 MVA, PHT 5.9 cm^2 --------- 6.9 MVA/bsa, PHT 2.31 cm^2/m^2 --------- 2.63 Aortic root Value Ref 05/21/2024 Root diam (N) 3.4 cm 3.1 - 4.5 Root diam/bsa 1.3 cm/m^2 --------- Ascending aorta Value Ref 05/21/2024 AAo AP diam, S 3.0 cm --------- 3.1 AAo AP 1.2 cm/m^2 --------- 1.2 diam/bsa, S Legend: (L) and (H) krunal values outside specified reference range. (N) moran values inside specified reference range. Reviewed and confirmed by Thania Carvajal MD [id number] Destin Rawls MD CV ECHO ORDERABLES Final Result documented in this encounter Visit Diagnoses Diagnosis Essential (primary) hypertension Unspecified essential hypertension Type 2 diabetes 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, with long-term current use of insulin [place] ESRD (end stage renal disease) on dialysis ([facility] End stage renal disease Pre-transplant evaluation for kidney transplant Essential (primary) hypertension Unspecified essential hypertension Type 2 diabetes 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, with long-term current use of insulin ([facility] ESRD (end stage renal disease) on dialysis ([facility] End stage renal disease Pre-transplant evaluation for kidney transplant High risk surgery, pre-operative cardiovascular examination Pre-operative cardiovascular examination Essential (primary) hypertension Unspecified essential hypertension Type 2 diabetes 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, with long-term current use of insulin ([facility] ESRD (end stage renal disease) on dialysis ([facility] End stage renal disease Pre-transplant evaluation for kidney transplant High risk surgery, pre-operative cardiovascular examination Pre-operative cardiovascular examination documented in this encounter Additional Health Concerns Assessment Noted Time PHQ-9 Depression Total Score: 0 12/06/19 18 3:00 PM EDT documented as of this encounter Care Teams Bookseamer Blindstitch Relationship Specialty Start Date End Date Edgar Fournier MD [address] [place] [address] PCP - General 12/22/21 Maile Valles, JANA Txp Post Coordinator Transplant Hepatology 11/07/17 Jakc Ordoñez MD [address] [place] [phone] Consulting Physician Transplant Hepatology 01/05/18 Estephania Sharif, Wilbert Pharmacist Pharmacist 11/11/19 documented as of this encounter
--- OUTSIDE RECORDS SUMMARY | 2025-04-21 12:30 | XMS_ITS | Encounter Summary ---
Author Organization [facility] Address [facility] [place] [address] Care Team Providers Care Driver Education Road Instructor Name Role Phone Maile Valles RN Unavailable Unavail able Jack Ordoñez MD Unavailable [phone] Estephania Sharif PharmD Unavailable Christine miguelilaEdgar Azar MD Primary Care Provider [phone] Source Comments This information has been disclosed [...] release of HIV test results or diagnoses. [id number] Reason for Visit * Auth/Cert (Routine) Specialty Diagnoses / Procedures Referred By Contac t Referred To Contact Cardiology [facility] Echocardiography at [facility] [address] [facility] [address] [place] [address] Phone: tel: fax: Referral ID Status Reason Start Date Expiration Date Visits Re quested Visits Authorized [id number] 1 1 Encounter Details Date Type Department Care Team (Latest Contact Info) Description 04/21/2025 12:30 PM EDT Procedure visit [facility] ENT at [facility] [address] [place] [phone] Marky Breen Au.D. [address] [place] [address] Tracy Ashley Au.D. [address] [place] [phone] Sensorineural hearing loss, asymmetrical (Primary Dx) Social History Tobacco Use Types Packs/Day Years Used Date Smoking Tobacco: Never Smokeless Tobacco: Never Alcohol Use Standard Drinks/Week Comments Never 0 (1 standard drink = 0.6 oz pur e alcohol) Utilities Answer Date Recorded In the past 12 months has th e [employer], gas, oil, or water [employer] threatened to shut off services in your [...] time in the past 12 m [facility], were you homeless or living in a [facility] (including now)? No 12/03/2024 Yearly Questionnaire Answer Date Record ed Do you need any assistance w ith obtaining housing, meals, medication, transportation or medical equipment? No 04/21 Assistance needed for: Not on file 5 Yearly Questionnaire Answer Date Record ed Do you need any assistance w ith obtaining housing, meals, medication, transportation or medical equipment? No 04/21 Assistance needed for: Not on file 5 Yearly Questionnaire Answer Date Record ed Do you need any assistance w ith obtaining housing, meals, medication, transportation or medical equipment? No 04/21 Assistance needed for: Not on file 5 Sex and Gender Information Value Date Recorded Sex Assigned at Not on file Legal Sex Male 11:05 AM EDT Gender Identity Not on file Sexual Orientation Not on file documented as of this encounter Progress Notes * Mikal Nicolas - 04/21/2025 12:30 PM EDT See attached audiogram documented in this encounter Plan of Treatment Upcoming Encounters Date Type Department Care Team (Latest Contact Info) Description 06/12/2025 1:59 PM EDT Hospital Encounter [facility] Cardiac Natural Gas Technician [address] [place] [phone] Cuong Dobson MD [address] [facility] [place] [phone] Essential (primary) hypertension; Type 2 diabetes 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, with long-term current use of insulin [place] ESRD (end stage renal disease) on dialysis [place] Pre-transplant evaluation for kidney transplant; High risk surgery, pre-operative cardiovascular examination 06/12/2025 1:59 PM EDT - 06/12/2025 3:00 PM EDT Surgery [facility] Cardiac Natural Gas Technician [address] [place] [phone] Cuong Dobson MD [address] [facility] [place] [phone] Left and Right Heart Cath documented as of this encounter Visit Diagnoses Diagnosis Sensorineural hearing loss, asymmetrical- Primary Essential (primary) hypertension Unspecified essential hypertension Type 2 diabetes 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, with long-term current use of insulin [place] ESRD (end stage renal disease) on dialysis [place] End stage renal disease Pre-transplant evaluation for kidney transplant High risk surgery, pre-operative cardiovascular examination Pre-operative cardiovascular examination Essential (primary) hypertension Unspecified essential hypertension Type 2 diabetes 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, with long-term current use of insulin [place] ESRD (end stage renal disease) on dialysis [place] End stage renal disease Pre-transplant evaluation for kidney transplant High risk surgery, pre-operative cardiovascular examination Pre-operative cardiovascular examination documented in this encounter Additional Health Concerns Assessment Noted Time PHQ-9 Depression Total Score: 0 12/06/19 18 3:00 PM EDT documented as of this encounter Care Teams Driver Education Road Instructor Relationship Specialty Start Date End Date Edgar Fournier MD [address] [place] [address] [place] [address] PCP - General 12/22/21 Maile Valles, RN Txp Post Coordinator Transplant Hepatology 11/07/17 Jack Ordoñez MD [address] [place] [phone] Consulting Physician Transplant Hepatology 01/05/18 Estephania Sharif, DarrianD Pharmacist Pharmacist 11/11/19 documented as of this encounter
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
--- OUTSIDE RECORDS SUMMARY | 2025-06-10 12:43 | XMS_ITS | Encounter Summary ---
Author Organization [facility] Address [address] [place] [address] Care Team Providers Care Foundry Supervisor Name Role Phone Edgar Fournier MD Primary Care Provider Enrique Griffith MD Unavailable [phone] Encounter Details Date Type Department Care Team (Late st Contact Info) Description 11/02/2016 [facility] Encounter Historical [facility] [address] [place] [address] Provider, Amrit [address] [place] [address] Social History Tobacco Use Types Packs/Day [...] documented as of this encounter Care Teams Foundry Supervisor Relationship Specialty Start Date End Date Edgar Forunier MD [address] [place] [address] PCP - General 12/25/20 Enrique Griffith MD [address] [place] [address] Referring Physician Nephrology 01/08/21 documented as of this encounter
--- OUTSIDE RECORDS SUMMARY | 2025-06-10 12:43 | XMS_ITS | Encounter Summary ---
Author Organization [facility] Address [address] [place] [address] Care Team Providers Care Piercing Specialist Name Role Phone Edgar Fournier MD Primary Care Provider Enrique Griffith MD Unavailable [phone] Encounter Details Date Type Department Care Team (Late st Contact Info) Description 10/13/2016 Legacy OTTR Encounter Historical OTTR [address] [place] [address] Nataly Masterson RN [facility]ISTRATION Social History [...] documented as of this encounter Care Teams Piercing Specialist Relationship Specialty Start Date End Date Edgar Fournier MD [address] [place] [address] PCP - General 12/25/20 Enrique Griffith MD [address] [place] [address] Referring Physician Nephrology 01/08/21 documented as of this encounter
--- OUTSIDE RECORDS SUMMARY | 2025-06-10 12:43 | XMS_ITS | Encounter Summary ---
Author Organization [facility] Address [address] [place] [address] Care Team Providers Care Data Warehouse Architect Name Role Phone Edgar Fournier MD Primary Care Provider Enrique Griffith MD Unavailable [phone] Encounter Details Date Type Department Care Team (Late st Contact Info) Description 10/12/2016 Legacy OTTR Encounter Historical OTTR [address] [place] [address] Bridgett Márquez, RN [id number] [address] [place] [id number] Social History Tobacco Use Types Packs/Day Years [...] patient. He is currently in ER at [facility]. He adv he had EGD last week, [...] as of this encounter Care Teams Data Warehouse Architect Relationship Specialty Start Date End Date Edgar Fournier MD [address] [place] [address] PCP - General 12/25/20 Enrique Griffith MD [address] [place] [address] Referring Physician Nephrology 01/08/21 documented as of this encounter
--- OUTSIDE RECORDS SUMMARY | 2025-06-10 12:43 | XMS_ITS | Encounter Summary ---
Author Organization [facility] Address [address] [place] [address] Care Team Providers Care Cement Finisher Name Role Phone Edgar Fournier MD Primary Care Provider [phone] Enrique Griffith MD Unavailable Encounter Details Date Type Department Care Team (Late st Contact Info) Description 10/28/2016 Legacy OTTR Encounter Historical OTTR [address] [place] [address] Antione Romano APRN [address] [facility] [address] [place] [address] Social History Tobacco Use Types Packs/Day Years [...] PRBCs and transferred to ICU at [facility]. On arrival he was actively vomiting [...] documented as of this encounter Care Teams Cement Finisher Relationship Specialty Start Date End Date Edgar Fournier MD [facility] [place] [address] PCP - General 12/25/20 Enrique Griffith MD [address] [place] [address] Referring Physician Nephrology 01/08/21 documented as of this encounter
--- OUTSIDE RECORDS SUMMARY | 2025-06-10 12:43 | XMS_ITS | Clinical Summary ---
Author Organization [facility] Address [address] [place] [address] Care Team Providers Care Bariatric Physician Name Role Phone Edgar Fournier MD Primary Care Provider [phone] Enrique Griffith MD Unavailable [phone] Allergies Active Allergy Reactions Criticality Noted Date Comments Codeine Anxiety Medium 06/02/2014 Tacrolimus Other - please docum ent in the comment field High 03/02/2021 Anxious feeling and muscle jerking. TOLERATED ENVARSUS BETTER THAN PROGRAF. Medications ergocalciferol (ergocalciferol) 1.25 MG (69761 UT) capsule Take 1 capsule (50,000 Units) [...] Active fluticasone (Flonase) 50 MCG/ACT nasal spray [place] 2 spray nasALLY once a day as [...] MG(Fe) tablet 3 Active Continuous Blood Gluc Door Glass Installer (Dexcom G7 Door Glass Installer) device USE DIRECTED by 3 Active Continuous Blood Gluc Sensor (Dexcom G7 Sensor) [facility] USE DIRECTED CHANGE every 10 DAYS 3 Active sodium zirconium cyclosilicate (Lokelma) 10 g packet Take 10 g by mouth 1 (one) time each day. 3 Active methocarbamol (Robaxin) 500 MG tablet TAKE ONE TABLET BY MOUTH FOUR TIMES DAILY (BEFORE MEALS AND AT BEDTIME) 3 Active Vitamin D3 1.25 MG (91473 UT) capsule take 1 Capsule by mouth [...] times a day if needed. 3 Active NovoLOG FLEXPEN 100 UNIT/ML injection pen in the morning and at noon and in the evening. Take with meals. 4 Active Continuous Glucose Sensor (FreeStyle Leonel 2 Plus Sensor) [facility] Active Active Problems Problem Noted Date Diagnosed Date History of liver transplant 07/18/2023 12/0 12/2022 Gastroesophageal reflux disease 07/18/2023 07/18/2023 Diabetes mellitus type 2 in obese 07/18/2023 Overview (11/13/2023): Diagnosis replaced per IMO Regulatory Update November 13, 2023 Multiple joint pain 07/18/2023 Hyperkalemia 11/08/2021 Obesity, Class III, BMI [...] is anxious. Currently on BID scheduled. PLAN: Continue lorazepam 0.5 mg PO BID AND PRN lorazepam 0.5 mg PO once per day Sleep apnea 08/14/2019 07/18/2023 Overview (07/18/2023): Last Assessment & Plan: His home unit is here, but seems to be configured incorrectly. He is using hospital unit. PLAN: CPAP overnight ESRD (end stage renal disease) 09/13/2018 1 09/18/2022 Overview (07/18/2023): Last Assessment & Plan: Tolerated dialysis well yesterday. PLAN: Continue dialysis Nonalcoholic steatohepatitis (SAL) 04/28/2016 Overview (01/15/2021): Nonalcoholic steatohepatitis (SAL) Hypertension 02/03/2016 Anemia 10/08/2015 Obesity 07/30/2014 Uncontrolled diabetes mellitus 07/30/2014 Retinopathy Asterixis Resolved Problems Problem Noted Date Diagnosed Date Resolved Date Fatigue 07/18/2023 05/04/2025 Hematochezia 12/28/2016 05/04/2025 Pre-liver transplant, listed 07/01/2016 01/28/2021 Overview (01/15/2021): Awaiting organ transplant status Awaiting transplantation of liver 04/28/2016 01/28/2021 Overview (01/15/2021): Encounter for other preprocedural examination Cirrhosis 04/28/2016 01/28/2021 Overview (01/15/2021): Unspecified cirrhosis of liver Hepatic encephalopathy 10/12/201501/28 Portal hypertension 06/02/2014 01/29/20 21 Esophageal varices without bleeding 12/24/2012 01/28/2021 Fatty (change of) liver, not elsewhere classified 10/25/2012 01/28/2021 Encounters Date Type Department Care Team Description 04/30/2025 Telephone [facility] [address] [address] Zion Virgen, RN from Last 3 Months Immunizations Immunization Administration Dates Next Due Hep A / Hep B 12/24/2012 Hep A, Adult 07/03/2014 Hep B, Adolescent/High Risk Infant 07/26/1999 Hep B, adult 07/03/2014,12/31/1999,06/04/1999 Influenza, injectable, quadr ivalent, preservative free 08/08/2017 Pneumococcal Polysaccharide PPV23 08/08/2017, Family History Medical History Relation Name Comments Alcohol abuse Father Aiden Stauffer Sr Cancer Father Aiden Stauffer Sr Alcohol abuse Father's Brother Edwar Stauffer Diabetes Mother Kimberly Alcohol abuse Sister 1 Nadya [place] Cirrhosis Sister 2 Diabetes Sister 3 Nadya Relation Name Status Comments Father Aiden Stauffer Sr Father's Brother Edwar Stauffer Mother Kimberly Sister 1 Nadya [place] Sister 2 Sister 3 Nadya Social History [...] Date Recorded Patient Health Questionnaire-2 Score 0 10/31/2024 Hunger Vital Sign Answer Date Recorded Within the past 12 months, y ou worried that your food would run out before you got the money to buy more. Never true 10/09/19 Within the past 12 months, t he [...] slept in a detention (including now)? No 10/09/2023 Housing Stability Vital [...] In the past 12 months has th [employer] electric, gas, oil, or water company threatened [...] Sign Reading Time Taken Comments Blood Pressure 153/86 10/31/2024 2:53 PM EDT Pulse 106 10/31/2024 2:53 PM EDT Temperature 36.5 C (97.7 F) 10/31/2024 2:53 PM EDT Respiratory Rate 18 10/31/2024 2:53 PM EDT Oxygen Saturation 98% 10/31/2024 2:53 PM EDT Inhaled Oxygen Concentration - - Weight 129 kg (284 lb 6.3 oz) 10/31/2024 2:53 PM EDT Height 172.7 cm (5' 8 ) 10/31/2024 2:53 PM EDT Body Mass Index 43.24 10/31/2024 2:53 PM EDT Plan of Treatment Health Maintenance Due Date Last Done Comments [facility]-Medicare Annual Wellness (AWV) 1974 [facility]-Infant/Child/Adol SDOH Screenings 1974 Diabetes: Dental Exam 02/26/1984 [facility]- SDOH Screenings 02/26/1992 [facility]-Adult SDOH Screenings 02/26/1992 [facility]-DTaP,Tdap,and Td Vaccines (1 - Tdap) 1993 [facility]-Zoster Vaccines (1 of 2) 1993 [facility]-Hepatitis A Vaccines (3 of 3 - Hep A Twinrix risk 3-dose series) 12/01/2014 07/03/2014, 12/24/2012 [facility]-Pneumococcal Vaccine: 50+ Years (3 of 3 - PCV) 08/08/2018 08/08/2017, 01/05/2016 CT Colonography 2019 FIT-DNA 2019 FIT 2019 FOBT 2019 Sigmoidoscopy 2019 ROA-EFHBR-34 Vaccine (3 - Moderna risk series) 10/26/2021 09/28/2021, 08/17/2021 [facility]-Diabetes: Hemoglobin A1C 02/09/2024, 01/28/2021, 04/13/2017, Additional history exists [facility]-Influenza Vaccine (#1) 2025 08/08/2017 [facility]-Depression Screening 10/31/2025 10/31/2024 Colonoscopy 10/20/2026 10/20/2016 [facility]-Colorectal Cancer Screening 10/20/2026 [facility]-Hepatitis B Vaccines Completed 014, 12/24/2012, 12/31/1999, Additional history exists [facility]-Hepatitis C Screening Completed 2022, 11/08/2021, 11/08/2021, Additional history exists [facility]-Obesity Intervention Completed 025, 10/16/2023, 07/18/2023, Additional history exists [facility]-HIV Screening Completed 02/04/2025, , 11/08/2021, Additional history exists HPV Vaccines Aged Out No longer eligi ble based on patient's age to complete this topic [facility]-HIB Vaccines Aged Out No longer e [...] Antibody/Antigen Screen (03/16/2023 1:57 PM EDT) Pathologist [facility] [place] HIV 1 & 2 Antibody/Antigen Screen Non [...] t Performing Organization Address City/[facility] Co de Phone Number HEALTHCARE LAB [address] [place] [address] * Hepatitis C Antibody (03/16/2023 1:57 PM EDT) Pathologist [facility] Hepatitis C Antibody Negative Negative 03/16/2023 5:00 PM EDT HEALTHCARE LAB Blood Venous blood specimen / Unknown Venipuncture / Unknown 03/16/2023 1:57 PM EDT 03/16/2023 4:17 PM EDT us Petrona Sheppard MD LAB BLOOD ORDERABLES Final Resul t Performing Organization Address City/[facility] Co de Phone Number HEALTHCARE LAB [address] [place] [address] * (ABNORMAL) Hemoglobin A1c (01/28/2021 9:53 AM EDT) Pathologist [facility] Hemoglobin A1c 6.0(H) <5.7 % 01/28/2021 10:49 [...] Adults <6.0% Children and Adolescents <7.5% Source: [place] [employer]. Standards of medical care in diabetes,2017. Diabetes Care.2017:40 (suppl 1):S1-S135. HbA1c assay performed by an ion-exchange chromatography method that is certified traceable to the DCCT. Petrona Sheppard MD LAB BLOOD ORDERABLES Final Resul t [facility] [address] [place] [address] * COLONOSCOPY (10/20/2016) Anatomical Region Laterality Modality Endoscopy Narrative 10/20/2016 Ordered by an unspecified provider. Historical Provider GI PROCEDURE ORDERABLES Yoselin l Result from Last 3 Months or Most Recently Relevant to Health Maintenance [place] MEDICARE Advance Directives * Full Code (Latest Code Status on File) Date Activated Date Inactivated Comments 11/08/2021 4:49 AM 11/09/2021 10:10 PM Patient wan ts full resuscitative measures if needed Question Answer Comments Patient has decision-making capacity? Yes Care Teams Bariatric Physician Relationship Specialty Start Date End Date Edgar Fournier MD [address] [place] [address] PCP - General 12/25/20 Enrique Griffith MD [address] [place] [address] Referring Physician Nephrology 01/08/21
--- OUTSIDE RECORDS SUMMARY | 2025-06-10 12:43 | XMS_ITS | Encounter Summary ---
Author Organization [facility] Address [address] [place] [address] Care Team Providers Care Milk Hauler Name Role Phone Edgar Fournier MD Primary Care Provider Enrique Griffiht MD Unavailable Encounter Details Date Type Department Care Team (Late st Contact Info) Description 10/20/2016 [facility] OTTR Encounter Historical OTTR [address] [place] [address] Sandrita Ferguson, ASSISTANT PASSENGER LOCOMOTIVE ENGINEER [address] [facility] [address] [place] [address] Social History Tobacco Use Types Packs/Day Years [...] LAB RESULTS (MANUAL) (10/21/2016 4:00 AM EST) Pathologist [facility] External Estimated GFR 87.69 EXTERNAL LAB 10/21/2016 4:00 AM EST Narrative EXTERNAL LAB - 10/21/2016 3:12 AM EST Automated LAB Interface Historical Provider LAB BLOOD ORDERABLES Final R esult Performing Organization Address [facility] de Phone Number EXTERNAL LAB * OTTR LAB RESULTS (MANUAL) (10/20/2016 11:17 AM EST) Pathologist [facility] External Estimated GFR 81.93 EXTERNAL LAB 10/20/2016 11:1 7 AM EST Narrative EXTERNAL LAB - 10/20/2016 12:03 PM EST Automated LAB Interface Historical Provider LAB BLOOD ORDERABLES Final R esult Performing Organization Address [facility] Co de Phone Number EXTERNAL LAB * OTTR LAB RESULTS (MANUAL) (10/20/2016 2:11 AM EST) External Estimated GFR 79.31 EXTERNAL LAB 10/20/2016 2:11 AM EST Narrative EXTERNAL LAB - 10/20/2016 3:18 AM EST Automated LAB Interface Historical Provider LAB BLOOD ORDERABLES Final R esult Performing Organization Address [facility]/State/ZIP Co de Phone Number EXTERNAL LAB documented in this encounter Visit Diagnoses Not on filedocumented in this encounter Additional Health Concerns Infection Onset Date Last Indicated Resolved Time COVID-19 Rule-Out 11/08/2021 11/08/2021 11/08/2021 8:06 AM EDT documented as of this encounter Care Teams Milk Hauler Relationship Specialty Start Date End Date Edgar Fournier MD [address] [place] [address] PCP - General 12/25/20 Enrique Griffith MD [address] [place] [address] Referring Physician Nephrology 01/08/21 documented as of this encounter
--- OUTSIDE RECORDS SUMMARY | 2025-06-10 12:43 | XMS_ITS | Encounter Summary ---
Author Organization [facility] Address [address] [place] [address] Care Team Providers Care Turkey Cleaner Name Role Phone Edgar Fournier MD Primary Care Provider [phone] Enrique Griffith MD Unavailable Encounter Details Date Type Department Care Team (Late st Contact Info) Description 10/17/2016 [facility] OTTR Encounter Historical OTTR [address] [place] [address] Antione Romano APRN [address] [place] [facility] [address] [place] [address] Social History Tobacco Use Types Packs/Day Years [...] and transferred to ICU at [facility]. On arrival he was actively vomiting blood [...] Interface us Historical Provider LAB BLOOD ORDERABLES Final R esult Performing Organization Address City/[facility]/ZIP Co de Phone Number EXTERNAL LAB * OTTR LAB RESULTS (MANUAL) (10/16/2016 5:43 AM EST) External Estimated GFR 66.39 EXTERNAL LAB 10/16/2016 5:43 AM EST Narrative EXTERNAL LAB - 10/16/2016 6:29 AM EST Automated LAB Interface Historical Provider LAB BLOOD ORDERABLES Final R esult Performing Organization Address City/[facility]/ZIP Co de Phone Number EXTERNAL LAB * OTTR LAB RESULTS (MANUAL) (10/16/2016 2:04 AM EST) External Estimated GFR 58.79 EXTERNAL LAB 10/16/2016 2:04 AM EST Narrative EXTERNAL LAB - 10/16/2016 2:48 AM EST Automated LAB Interface Historical Provider LAB BLOOD ORDERABLES Final R esult Performing Organization Address City/[facility] Co de Phone Number EXTERNAL LAB documented in this encounter Visit Diagnoses Not on filedocumented in this encounter Additional Health Concerns Infection Onset Date Last Indicated Resolved Time COVID-19 Rule-Out 11/08/2021 11/08/2021 11/08/2021 8:06 AM EDT documented as of this encounter Care Teams Turkey Cleaner Relationship Specialty Start Date End Date Edgar Fournier MD [address] [place] [address] PCP - General 12/25/20 Enrique Griffith MD [address] [place] [address] Referring Physician Nephrology 01/08/21 documented as of this encounter
--- OUTSIDE RECORDS SUMMARY | 2025-06-10 12:43 | XMS_ITS | Encounter Summary ---
Author Organization [facility] Address [address] [place] [address] Care Team Providers Care Bearing Grinder Name Role Phone Edgar Fournier MD Primary Care Provider [phone] Enrique Griffith MD Unavailable [phone] Encounter Details Date Type Department Care Team (Late st Contact Info) Description 10/14/2016 Legacy OTTR Encounter Historical OTTR [address] [place] [address] Shara Huff, GOLF CART ATTENDANT, DNP [address] [facility] [address] [place] [address] Social History Tobacco Use Types Packs/Day Years [...] transfused 3U PRBCsand transferred to ICU at [facility]. On arrival he was actively [...] documented as of this encounter Care Teams Bearing Grinder Relationship Specialty Start Date End Date Edgar Fournier MD [address] [place] [address] PCP - General 12/25/20 Enrique Griffith MD [address] [place] [address] Referring Physician Nephrology 01/08/21 documented as of this encounter
--- OUTSIDE RECORDS SUMMARY | 2025-06-10 12:43 | XMS_ITS | Encounter Summary ---
Author Organization [facility] Address [address] [place] [address] Care Team Providers Care Admin Assistant Name Role Phone Edgar Fournier MD Primary Care Provider Enrique Griffith MD Unavailable Encounter Details Date Type Department Care Team (Late st Contact Info) Description 11/08/2016 Legacy OTTR Encounter Historical OTTR [address] [place] [address] Maren Friedman MD [address] [facility] [address] [place] [address] Social History Tobacco Use Types [...] report CT of the abdomen done in [facility] Continue carvedilol, history of hypertension, blood [...] Provider LAB BLOOD ORDERABLES Final R esult EXTERNAL LAB documented in this encounter Visit Diagnoses Not on filedocumented in this encounter Additional Health Concerns Infection Onset Date Last Indicated Resolved Time COVID-19 Rule-Out 11/08/2021 11/08/2021 11/08/2021 8:06 AM EDT documented as of this encounter Care Teams Admin Assistant Relationship Specialty Start Date End Date Edgar Fournier MD [facility] [place] [address] PCP - General 12/25/20 Enrique Griffith MD [address] [place] [address] Referring Physician Nephrology 01/08/21 documented as of this encounter
--- OUTSIDE RECORDS SUMMARY | 2025-06-10 12:43 | XMS_ITS | Encounter Summary ---
Author Organization [facility] Address [address] [place] [address] Care Team Providers Care Press Box Custodian Name Role Phone Edgar Fournier MD Primary Care Provider [phone] nErique Griffith MD Unavailable [phone] Encounter Details Date Type Department Care Team (Late st Contact Info) Description 10/28/2016 Legacy OTTR Encounter Historical OTTR [address] [place] [address] Anne [address] [place] [id number] Social History Tobacco Use Types Packs/Day Years [...] documented as of this encounter Care Teams Press Box Custodian Relationship Specialty Start Date End Date Edgar Fournier MD [address] [place] [address] PCP - General 12/25/20 Enrique Griffith MD [address] [place] [address] Referring Physician Nephrology 01/08/21 documented as of this encounter
--- OUTSIDE RECORDS SUMMARY | 2025-06-10 12:43 | XMS_ITS | Encounter Summary ---
Author Organization [facility] Address [address] [place] [address] Care Team Providers Care Aitchbone Breaker Name Role Phone Edgar Fournier MD Primary Care Provider Enrique Griffith MD Unavailable [phone] Encounter Details Date Type Department Care Team (Late st Contact Info) Description 09/22/2016 Legacy OTTR Encounter Historical OTTR [address] [place] [address] Bridgett Márquez, RN [facility] [id number] [address] [place] [address] Social History Tobacco Use Types Packs/Day Years [...] documented as of this encounter Care Teams Aitchbone Breaker Relationship Specialty Start Date End Date Edgar Fournier MD [address] [place] [address] PCP - General 12/25/20 Enrique Griffith MD [address] [place] [address] Referring Physician Nephrology 01/08/21 documented as of this encounter
--- OUTSIDE RECORDS SUMMARY | 2025-06-10 12:43 | XMS_ITS | Encounter Summary ---
Author Organization [facility] Address [address] [place] [address] Care Team Providers Care Leadership Program Intern Name Role Phone Edgar Fournier MD Primary Care Provider [phone] Enrique Griffith MD Unavailable [phone] Encounter Details Date Type Department Care Team (Late st Contact Info) Description 10/14/2016 Legacy OTTR Encounter Historical OTTR [address] [place] [address] Bridgett Márquez, RN [facility] [id number] [address] [place] [address] Social History Tobacco Use Types Packs/Day Years [...] ORDERABLES Final R esult Performing Organization Address [facility] de Phone Number EXTERNAL LAB * OTTR LAB RESULTS (MANUAL) (10/15/2016 6:05 PM EST) External Estimated GFR 59.77 EXTERNAL LAB 10/15/2016 6:05 PM EST Narrative EXTERNAL LAB - 10/15/2016 6:56 PM EST Automated LAB Interface Historical Provider LAB BLOOD ORDERABLES Final R esult Performing Organization Address [facility] de Phone Number EXTERNAL LAB * OTTR LAB RESULTS (MANUAL) (10/15/2016 1:59 PM EST) External Estimated GFR 58.79 EXTERNAL LAB 10/15/2016 1:59 PM EST Narrative EXTERNAL LAB - 10/15/2016 2:46 PM EST Automated LAB Interface Historical Provider LAB BLOOD ORDERABLES Final R esult Performing Organization Address [facility] de Phone Number EXTERNAL LAB * OTTR LAB RESULTS (MANUAL) (10/15/2016 10:36 AM EST) External Estimated GFR 63.47 EXTERNAL LAB 10/15/2016 10:3 6 AM EST Narrative EXTERNAL LAB - 10/15/2016 11:28 AM EST Automated LAB Interface Historical Provider LAB BLOOD ORDERABLES Final R esult Performing Organization Address [place]/[facility] Co de Phone Number EXTERNAL LAB * OTTR LAB RESULTS (MANUAL) (10/15/2016 6:35 AM EST) External Estimated GFR 56.45 EXTERNAL LAB 10/15/2016 6:35 AM EST Narrative EXTERNAL LAB - 10/15/2016 7:23 AM EST Automated LAB Interface Historical Provider LAB BLOOD ORDERABLES Final R esult Performing Organization Address [facility] de Phone Number EXTERNAL LAB * OTTR LAB RESULTS (MANUAL) (10/15/2016 1:58 AM EST) External Estimated GFR 59.28 EXTERNAL LAB 10/15/2016 1:58 AM EST Narrative EXTERNAL LAB - 10/15/2016 2:52 AM EST Automated LAB Interface Historical Provider LAB BLOOD ORDERABLES Final R esult Performing Organization Address [facility] Co de Phone Number EXTERNAL LAB * OTTR LAB RESULTS (MANUAL) (10/14/2016 10:53 PM EST) External Estimated GFR 59.77 EXTERNAL LAB 10/14/2016 10:5 3 PM EST Narrative EXTERNAL LAB - 10/14/2016 11:37 PM EST Automated LAB Interface Historical Provider LAB BLOOD ORDERABLES Final R esult Performing Organization Address [facility] Co de Phone Number EXTERNAL LAB * OTTR LAB RESULTS (MANUAL) (10/14/2016 6:52 PM EST) External Estimated GFR 65.79 EXTERNAL LAB 10/14/2016 6:52 PM EST Narrative EXTERNAL LAB - 10/14/2016 7:44 PM EST Automated LAB Interface Historical Provider LAB BLOOD ORDERABLES Final R esult Performing Organization Address City/[facility]/ZIP Co de Phone Number EXTERNAL LAB * OTTR LAB RESULTS (MANUAL) (10/14/2016 2:07 PM EST) External Estimated GFR 50.39 EXTERNAL LAB 10/14/2016 2:07 PM EST Narrative EXTERNAL LAB - 10/14/2016 3:44 PM EST Automated LAB Interface Historical Provider LAB BLOOD ORDERABLES Final R esult Performing Organization Address [facility] de Phone Number EXTERNAL LAB * OTTR LAB RESULTS (MANUAL) (10/14/2016 12:21 PM EST) External Estimated GFR 48.30 EXTERNAL LAB 10/14/2016 12:2 1 PM EST Narrative EXTERNAL LAB - 10/14/2016 1:33 PM EST Automated LAB Interface Historical Provider LAB BLOOD ORDERABLES Final R esult Performing Organization Address [facility] de Phone Number EXTERNAL LAB * OTTR LAB RESULTS (MANUAL) (10/14/2016 10:33 AM EST) External Estimated GFR 53.47 EXTERNAL LAB 10/14/2016 10:3 3 AM EST Narrative EXTERNAL LAB - 10/14/2016 11:58 AM EST Automated LAB Interface Historical Provider LAB BLOOD ORDERABLES Final R esult Performing Organization Address [facility] de Phone Number EXTERNAL LAB * OTTR LAB RESULTS (MANUAL) (10/14/2016 9:20 AM EST) External Estimated GFR 57.37 EXTERNAL LAB 10/14/2016 9:20 AM EST Narrative EXTERNAL LAB - 10/14/2016 10:27 AM EST Automated LAB Interface Historical Provider LAB BLOOD ORDERABLES Final R esult Performing Organization Address [facility] de Phone Number EXTERNAL LAB * OTTR LAB RESULTS (MANUAL) (10/14/2016 6:31 AM EST) External Estimated GFR 61.84 EXTERNAL LAB 10/14/2016 6:31 AM EST Narrative EXTERNAL LAB - 10/14/2016 7:46 AM EST Automated LAB Interface Historical Provider LAB BLOOD ORDERABLES Final R esult Performing Organization Address [facility] Co de Phone Number EXTERNAL LAB * OTTR LAB RESULTS (MANUAL) (10/14/2016 5:05 AM EST) External Estimated GFR 65.79 EXTERNAL LAB 10/14/2016 5:05 AM EST Narrative EXTERNAL LAB - 10/14/2016 6:22 AM EST Automated LAB Interface Historical Provider LAB BLOOD ORDERABLES Final R esult Performing Organization Address City/[facility]/ZIP Co de Phone Number EXTERNAL LAB * OTTR LAB RESULTS (MANUAL) (10/14/2016 1:51 AM EST) External Estimated GFR 68.26 EXTERNAL LAB 10/14/2016 1:51 AM EST Narrative EXTERNAL LAB - 10/14/2016 6:26 AM EST Automated LAB Interface us Historical Provider LAB BLOOD ORDERABLES Final R esult Performing Organization Address [place]/[facility] Co de Phone Number EXTERNAL LAB documented in this encounter Visit Diagnoses Not on filedocumented in this encounter Additional Health Concerns Infection Onset Date Last Indicated Resolved Time COVID-19 Rule-Out 11/08/2021 11/08/2021 11/08/2021 8:06 AM EDT documented as of this encounter Care Teams Leadership Program Intern Relationship Specialty Start Date End Date Edgar Fournier MD [address] [place] [address] PCP - General 12/25/20 Enrique Griffith MD [address] [place] [id number] Referring Physician Nephrology 01/08/21 documented as of this encounter
--- OUTSIDE RECORDS SUMMARY | 2025-06-10 12:43 | XMS_ITS | Encounter Summary ---
Author Organization [facility] Address [address] [place] [address] Care Team Providers Care Sweeper Driver Name Role Phone Edgar Fournier MD Primary Care Provider Enrique Griffith MD Unavailable [phone] Encounter Details Date Type Department Care Team (Late st Contact Info) Description 09/27/2016 Legacy OTTR Encounter Historical OTTR [address] [place] [address] Bridgett Márquez, RN [facility] L[facility] [id number] [address] [place] [address] Social History Tobacco Use Types Packs/Day Years [...] and cramping. He was in hospital at [facility] and they transferred him to . At they determined he was getting better and sent him home. Patient still has a lot of abdominal pain, and does not know what to do. When patient admitted to [facility] ED his ammonia level was 170, but [...] documented as of this encounter Care Teams Sweeper Driver Relationship Specialty Start Date End Date Edgar Fournier MD [address] [place] [address] PCP - General 12/25/20 Enrique Griffith MD [address] [place] [address] Referring Physician Nephrology 01/08/21 documented as of this encounter
--- OUTSIDE RECORDS SUMMARY | 2025-06-10 12:43 | XMS_ITS | Encounter Summary ---
Author Organization [facility] Address [address] [place] [address] Care Team Providers Care Nurse Orthopedic Name Role Phone Edgar Fournier MD Primary Care Provider Enrique Griffith MD Unavailable [phone] Encounter Details Date Type Department Care Team (Late st Contact Info) Description 09/27/2016 Legacy OTTR Encounter Historical OTTR [address] [place] [address] Bridgett Márquez, RN HOSP[facility] LIVER [id number] [address] [place] [address] Social History Tobacco Use Types Packs/Day Years [...] of last labs and office notes to [phone]. Will do same. documented in this encounter Plan of Treatment Not on file documented as of this encounter Visit Diagnoses Not on filedocumented in this encounter Additional Health Concerns Infection Onset Date Last Indicated Resolved Time COVID-19 Rule-Out 11/08/2021 11/08/2021 11/08/2021 8:06 AM EDT documented as of this encounter Care Teams Nurse Orthopedic Relationship Specialty Start Date End Date Edgar Fournier MD [address] [place] [address] PCP - General 12/25/20 Enrique Griffith MD [address] [place] [address] Referring Physician Nephrology 01/08/21 documented as of this encounter
--- OUTSIDE RECORDS SUMMARY | 2025-06-10 12:43 | XMS_ITS | Encounter Summary ---
Author Organization [facility] Address [address] [place] [address] Care Team Providers Care Geodesy Teacher Name Role Phone Edgar Fournier MD Primary Care Provider Enrique Griffith MD Unavailable [phone] Encounter Details Date Type Department Care Team (Late st Contact Info) Description 10/19/2016 Legacy OTTR Encounter Historical OTTR [address] [place] [address] Shara Huff, HOGSHEAD SALVAGE, DNP [address] [facility] [address] [place] [address] Social History Tobacco Use Types Packs/Day Years [...] 3U PRBCs and transferred to ICU at [facility]. On arrival he was actively vomiting [...] 10/19/2016 6:27 PM EST Automated LAB Interface us Historical Provider LAB BLOOD ORDERABLES Final R esult Performing Organization Address [facility] Co de Phone Number EXTERNAL LAB * OTTR LAB RESULTS (MANUAL) (10/19/2016 2:12 AM EST) External Estimated GFR 72.32 EXTERNAL LAB 10/19/2016 2:12 AM EST Narrative EXTERNAL LAB - 10/19/2016 3:07 AM EST Automated LAB Interface Historical Provider LAB BLOOD ORDERABLES Final R esult Performing Organization Address [facility] de Phone Number EXTERNAL LAB * OTTR LAB RESULTS (MANUAL) (10/18/2016 2:29 PM EST) External Estimated GFR 72.32 EXTERNAL LAB 10/18/2016 2:29 PM EST Narrative EXTERNAL LAB - 10/18/2016 3:20 PM EST Automated LAB Interface Historical Provider LAB BLOOD ORDERABLES Final R esult Performing Organization Address [facility] de Phone Number EXTERNAL LAB * OTTR LAB RESULTS (MANUAL) (10/18/2016 10:15 AM EST) External Estimated GFR 70.23 EXTERNAL LAB 10/18/2016 10:1 5 AM EST Narrative EXTERNAL LAB - 10/18/2016 11:08 AM EST Automated LAB Interface Historical Provider LAB BLOOD ORDERABLES Final R esult Performing Organization Address [facility] Co de Phone Number EXTERNAL LAB * OTTR LAB RESULTS (MANUAL) (10/18/2016 2:09 AM EST) External Estimated GFR 62.92 EXTERNAL LAB 10/18/2016 2:09 AM EST Narrative EXTERNAL LAB - 10/18/2016 3:04 AM EST Automated LAB Interface Historical Provider LAB BLOOD ORDERABLES Final R esult Performing Organization Address City/[facility] Co de Phone Number EXTERNAL LAB documented in this encounter Visit Diagnoses Not on filedocumented in this encounter Additional Health Concerns Infection Onset Date Last Indicated Resolved Time COVID-19 Rule-Out 11/08/2021 11/08/2021 11/08/2021 8:06 AM EDT documented as of this encounter Care Teams Geodesy Teacher Relationship Specialty Start Date End Date Edgar Fournier MD [address] [place] [address] PCP - General 12/25/20 Enrique Griffith MD [address] [place] [address] Referring Physician Nephrology 01/08/21 documented as of this encounter
--- OUTSIDE RECORDS SUMMARY | 2025-06-10 12:43 | XMS_ITS | Encounter Summary ---
Author Organization [facility] Address [address] [place] [address] Care Team Providers Care Coordinator Hotels Name Role Phone Edgar Fournier MD Primary Care Provider Enrique Griffith MD Unavailable [phone] Encounter Details Date Type Department Care Team (Late st Contact Info) Description 10/26/2016 Legacy OTTR Encounter Historical OTTR [address] [place] [address] Sandrita Ferguson, RESIDENTIAL COUNSELOR [address] [facility] [address] [place] [address] Social History Tobacco Use Types Packs/Day Years [...] 3U PRBCs and transferred to ICU at [facility]. On arrival he was actively vomiting blood [...] ORDERABLES Final R esult Performing Organization Address City/[facility]/ZIP Co de Phone Number EXTERNAL LAB * OTTR LAB RESULTS (MANUAL) (10/26/2016 2:26 AM EDT) External Estimated GFR 113.78 EXTERNAL LAB 10/26/2016 2:26 AM EDT Narrative EXTERNAL LAB - 10/26/2016 3:29 AM EDT Automated LAB Interface Historical Provider LAB BLOOD ORDERABLES Final R esult Performing Organization Address City/[facility]/ZIP Co de Phone Number EXTERNAL LAB * OTTR LAB RESULTS (MANUAL) (10/25/2016 4:00 AM EDT) Pathologist [facility] External Estimated GFR 99.16 EXTERNAL LAB 10/25/2016 4:00 AM EDT Narrative EXTERNAL LAB - 10/25/2016 3:16 AM EDT Automated LAB Interface Historical Provider LAB BLOOD ORDERABLES Final R esult Performing Organization Address City/[facility]/ZIP Co de Phone Number EXTERNAL LAB documented in this encounter Visit Diagnoses Not on filedocumented in this encounter Additional Health Concerns Infection Onset Date Last Indicated Resolved Time COVID-19 Rule-Out 11/08/2021 11/08/2021 11/08/2021 8:06 AM EDT documented as of this encounter Care Teams Coordinator Hotels Relationship Specialty Start Date End Date Edgar Fournier MD [address] [place] [address] PCP - General 12/25/20 Enrique Griffith MD [address] [place] [address] Referring Physician Nephrology 01/08/21 documented as of this encounter
--- OUTSIDE RECORDS SUMMARY | 2025-06-10 12:43 | XMS_ITS | Encounter Summary ---
Author Organization [facility] Address [address] [place] [address] Care Team Providers Care Smart Grid Engineer Name Role Phone Edgar Fournier MD Primary Care Provider Enrique Griffith MD Unavailable [phone] Encounter Details Date Type Department Care Team (Late st Contact Info) Description 10/30/2016 Legacy OTTR Encounter Historical OTTR [address] [place] [address] Bridgett Márquez, RN [facility] LIVER [id number] [address] [place] [address] Social History Tobacco Use Types Packs/Day Years [...] documented as of this encounter Care Teams Smart Grid Engineer Relationship Specialty Start Date End Date Edgar Fournier MD [address] [place] [address] PCP - General 12/25/20 Enrique Griffith MD [address] [place] [address] Referring Physician Nephrology 01/08/21 documented as of this encounter
--- OUTSIDE RECORDS SUMMARY | 2025-06-10 12:43 | XMS_ITS | Encounter Summary ---
Author Organization [facility] Address [address] [place] [address] Care Team Providers Care Launching Pad Mechanic Name Role Phone Edgar Fournier MD Primary Care Provider [phone] Enrique Griffith MD Unavailable [phone] Encounter Details Date Type Department Care Team (Late st Contact Info) Description 11/16/2016 Legacy OTTR Encounter Historical OTTR [address] [place] [address] Bridgett Márquez, RN [facility] [id number] [address] [place] [address] Social History Tobacco Use Types Packs/Day Years [...] documented as of this encounter Care Teams Launching Pad Mechanic Relationship Specialty Start Date End Date Edgar Fournier MD [address] [place] [address] PCP - General 12/25/20 Enrique Griffith MD [address] [place] [address] Referring Physician Nephrology 01/08/21 documented as of this encounter
--- OUTSIDE RECORDS SUMMARY | 2025-06-10 12:43 | XMS_ITS | Encounter Summary ---
Author Organization [facility] Address [address] [place] [address] Care Team Providers Care Director Museum Or Zoo Name Role Phone Edgar Fournier MD Primary Care Provider Enrique Griffith MD Unavailable [phone] Encounter Details Date Type Department Care Team (Late st Contact Info) Description 11/14/2016 Legacy OTTR Encounter Historical OTTR [address] [place] [address] Bridgett Márquez, RN HOSPITAL LIVER [id number] [address] [place] [address] Social History Tobacco Use Types Packs/Day Years [...] as of this encounter Care Teams Director Museum Or Zoo Relationship Specialty Start Date End Date Edgar Fournier MD [address] [place] [address] PCP - General 12/25/20 Enrique Griffith MD [address] [place] [address] Referring Physician Nephrology 01/08/21 documented as of this encounter
--- OUTSIDE RECORDS SUMMARY | 2025-06-10 12:43 | XMS_ITS | Encounter Summary ---
Author Organization [facility] Address [address] [place] [address] Care Team Providers Care Bottling Room Worker Name Role Phone Edgar Fournier MD Primary Care Provider Enrique Griffith MD Unavailable Encounter Details Date Type Department Care Team (Late st Contact Info) Description 10/24/2016 Legacy OTTR Encounter Historical OTTR [address] [place] [address] Sandrita Ferguson, BOX FEEDER [address] [facility] [address] [place] [address] Social History Tobacco Use Types Packs/Day Years [...] BLOOD ORDERABLES Final R esult EXTERNAL LAB * OTTR LAB RESULTS (MANUAL) (10/23/2016 3:15 AM EDT) External Estimated GFR 80.17 EXTERNAL LAB 10/23/2016 3:15 AM EDT Narrative EXTERNAL LAB - 10/23/2016 4:16 AM EDT Automated LAB Interface Historical Provider LAB BLOOD ORDERABLES Final R esult Performing Organization Address City/[facility]/ZIP Co de Phone Number EXTERNAL LAB * OTTR LAB RESULTS (MANUAL) (10/22/2016 4:06 PM EST) External Estimated GFR 76.85 EXTERNAL LAB 10/22/2016 4:06 PM EST Narrative EXTERNAL LAB - 10/22/2016 4:48 PM EST Automated LAB Interface Historical Provider LAB BLOOD ORDERABLES Final R esult Performing Organization Address City/[facility]/ZIP Co de Phone Number EXTERNAL LAB * OTTR LAB RESULTS (MANUAL) (10/22/2016 2:24 AM EST) External Estimated GFR 80.17 EXTERNAL LAB 10/22/2016 2:24 AM EST Narrative EXTERNAL LAB - 10/22/2016 3:19 AM EST Automated LAB Interface Historical Provider LAB BLOOD ORDERABLES Final R esult Performing Organization Address City/[facility] Co de Phone Number EXTERNAL LAB documented in this encounter Visit Diagnoses Not on filedocumented in this encounter Additional Health Concerns Infection Onset Date Last Indicated Resolved Time COVID-19 Rule-Out 11/08/2021 11/08/2021 11/08/2021 8:06 AM EDT documented as of this encounter Care Teams Bottling Room Worker Relationship Specialty Start Date End Date Edgar Fournier MD [address] [place] [address] PCP - General 12/25/20 Enrique Griffith MD [address] [place] [address] Referring Physician Nephrology 01/08/21 documented as of this encounter
--- OUTSIDE RECORDS SUMMARY | 2025-06-10 12:43 | XMS_ITS | Encounter Summary ---
Author Organization [facility] Address [address] [place] [address] Care Team Providers Care Clinical Support Manager Name Role Phone Edgar Fournier MD Primary Care Provider Enrique Griffith MD Unavailable [phone] Encounter Details Date Type Department Care Team (Late st Contact Info) Description 10/17/2016 Legacy OTTR Encounter Historical OTTR [address] [place] [address] Bridgett Márquez, RN [facility] [id number] [address] [place] [address] Social History Tobacco Use Types Packs/Day Years [...] as of this encounter Care Teams Clinical Support Manager Relationship Specialty Start Date End Date Edgar Fournier MD [address] [place] [address] PCP - General 12/25/20 Enrique Griffith MD [address] [place] [address] Referring Physician Nephrology 01/08/21 documented as of this encounter
--- OUTSIDE RECORDS SUMMARY | 2025-06-10 12:44 | XMS_ITS | Encounter Summary ---
Author Organization [facility] ([place], [place], [place], [place]) Address [address] [place] [address] Care Team Providers Care Etl Developer Name Role Phone Edgar Fournier MD Primary Care Provider [phone] Edgar Fournier MD Primary Care Provider [phone] Reason for Referral * Interventional Radiology (Routine) - Closed Specialty Diagnoses / Procedures Referred By Contac t Referred To Contact Radiology Diagnoses End stage renal disease (HCC) Procedures IR CENTRAL VENOUS Man Sky MD [address] [place] [address] [address] Phone: tel: fax: Referral ID Status Reason Start Date Expiration Date Visits Re quested Visits Authorized [id number] Closed 01/12/2023 07/11/2023 1 1 Encounter Details Date Type Department Care Team (Late st Contact Info) Description 01/12/2023 Outside Orders [facility] Central Scheduling [address] [place] [address] Man Sky MD [address] [place] [address] End stage renal disease (HCC) (Primary Dx) [...] renal disease ATTENDING PHYSICIAN: Dr. Hogue PHYSICIAN GAS TURBINE MECHANIC: Maile Connolly PA-C PROCEDURE: After informed consent [...] renal disease ATTENDING PHYSICIAN: Dr. Hogue PHYSICIAN GAS TURBINE MECHANIC: Maile Connolly PA-C PROCEDURE: After informed consent [...] by Dr. Rohith Hogue. Transcribed by Maile VanHoose, PA-C. us Man Sky MD IMG IR ORDERABLES Final Res ult documented in this encounter Visit Diagnoses Diagnosis End stage renal disease (HCC)- Primary End stage renal disease End stage renal disease (HCC) End stage renal disease documented in this encounter Care Teams Etl Developer Relationship Specialty Start Date End Date Edgar Fournier MD [address] [place] [address] PCP - General Family Medicine 01/17/23 06/26/24 Edgar Fournier MD [address] [place] [address] PCP - General Family Medicine 06/27/24 documented as of this encounter
--- OUTSIDE RECORDS SUMMARY | 2025-06-10 12:44 | XMS_ITS | Encounter Summary ---
Author Organization [facility] Address [address] [place] [address] Care Team Providers Care Home Service Technician Name Role Phone Edgar Fournier MD Primary Care Provider [phone] Enrique Griffith MD Unavailable [phone] Encounter Details Date Type Department Care Team (Late st Contact Info) Description 10/27/2023 Orders Only External Location [address] [place] [address] Provider, External Social History Tobacco Use Types [...] in a group home (including now)? No 10/09/2023 Housing Stability [...] as of this encounter Care Teams Home Service Technician Relationship Specialty Start Date End Date Edgar Fournier MD [address] [place] [address] PCP - General 12/25/20 Enrique Griffith MD [address] [place] [address] Referring Physician Nephrology 01/08/21 documented as of this encounter
--- OUTSIDE RECORDS SUMMARY | 2025-06-10 12:44 | XMS_ITS | Encounter Summary ---
Author Organization [facility] Address [address] [place] [address] Care Team Providers Care Nib Assembler Name Role Phone Edgar Fournier MD Primary Care Provider Enrique Griffith MD Unavailable [phone] Encounter Details Date Type Department Care Team (Late st Contact Info) Description 11/01/2016 [facility] OTTR Encounter Historical OTTR [address] [place] [address] Bridgett Márquez, RN [facility] [id number] [address] [place] [address] Social History Tobacco Use Types Packs/Day Years [...] documented as of this encounter Care Teams Nib Assembler Relationship Specialty Start Date End Date Edgar Fournier MD [address] [place] [address] PCP - General 12/25/20 Enrique Griffith MD [address] [place] [address] Referring Physician Nephrology 01/08/21 documented as of this encounter
--- OUTSIDE RECORDS SUMMARY | 2025-06-10 12:44 | XMS_ITS | Encounter Summary ---
Author Organization [facility] Address [address] [place] [id number] Care Team Providers Care Ve Teacher Name Role Phone Edgar Fournier MD Primary Care Provider [phone] Enrique Griffith MD Unavailable [phone] Encounter Details Date Type Department Care Team (Late st Contact Info) Description 09/15/2016 [facility] OTTR Encounter Historical OTTR [address] [place] [address] Bridgett Márquez, RN [facility] [id number] [address] [place] [address] Social History Tobacco Use Types Packs/Day Years [...] documented as of this encounter Care Teams Ve Teacher Relationship Specialty Start Date End Date Edgar Fournier MD [address] [place] [address] PCP - General 12/25/20 Enrique Griffith MD [address] [place] [address] Referring Physician Nephrology 01/08/21 documented as of this encounter
--- OUTSIDE RECORDS SUMMARY | 2025-06-10 12:44 | XMS_ITS | Clinical Summary ---
Author Organization [employer] ([place], [place], [place], [place]) Address [address] [place] [address] Care Team Providers Care Return Agent Airport Name Role Phone Edgar Fournier MD Primary Care Provider [phone] Allergies Active Allergy Reactions Criticality Noted Date Comments Tacrolimus Other (See Comments) High 03/02/2021 Anxious feeling and muscle jerking. TOLERATED ENVARSUS BETTER THAN PROGRAF. Medications testosterone cypionate (DEPOTESTOTERO NE CYPIONATE) 200 mg/mL injection Inject 1 mL (200 mg total) intramuscularly every 28 days. 11/14/19 24 Active pantoprazole (PROTONIX) 40 MG tablet Take [...] total) by mouth 2 (two) times daily. 01/17/20 24 Active montelukast (SINGULAIR) 10 mg tablet Take 1 tablet (10 mg total) by mouth nightly. Active insulin aspart U-100 (NovoLOG Flexpen U-100 Insulin) 100 unit/mL (3 mL) inpn Inject 5 Units subcutaneously 3 (three) times daily before meals. 10/12/19 24 Active folic acid (FOLVITE) 1 MG tablet Take 1 tablet (1 mg total) by mouth daily. Active ALPRAZolam (XANAX) 0.5 MG tablet Take 1 tablet (0.5 mg total) by mouth daily as needed for anxiety. 05/05/20 23 Active aspirin 81 MG chewable tablet Take 1 tablet (81 mg total) by mouth daily. Active calcium carbonate (Tums) 500 mg chewable tablet Take 2 tablets (1,000 mg total) by mouth 3 (three) times daily with meals. 04/30/20 24 Active carvediloL (COREG) 25 MG tablet Take 1 tablet (25 mg total) by mouth 2 (two) times daily. Active ergocalciferol (ERGOCALCIFERO L) 1,250 mcg (50,000 unit) capsule Take 1 capsule (50,000 Units total) by mouth 3 (three) times a week MON/MON/FRI. 11/14/19 24 Active entecavir (BARACLUDE) 0.5 MG tablet Take 1 tablet (0.5 mg total) by mouth once a week. Active tenapanor (Xphozah) 30 mg tab Take 1 tablet by mouth 2 (two) times daily. Active carBAMazepine (TEGretol) 200 mg tablet Take 1 tablet (200 mg total) by mouth 2 (two) times daily. Active fenofibrate micronized (LOFIBRA) 134 MG capsule Take 1 capsule (134 mg total) by mouth every morning before breakfast. Active fexofenadine (FRANCOIS) 180 MG tablet Take 1 tablet (180 mg total) by mouth daily. Active gabapentin (NEURONTIN) 800 MG tablet Take 1 tablet (800 mg total) by mouth 2 (two) times daily. Active hydrALAZINE (APRESOLINE) 100 MG tablet Take [...] by mouth daily as needed (for Constipation). Activ e insulin NPH isoph U-100 human (HumuLIN N NPH Insulin KwikPen) 100 unit/mL (3 mL) inpn Inject 40 Units subcutaneously daily with breakfast. Active doxazosin (CARDURA) 8 MG tablet Take 1 tablet (8 mg total) by mouth nightly. 08/10/20 Active Active Problems Problem Noted Date Diagnosed Date Pulmonary HTN 05/14/2024 Overview (05/14/2024): Last Assessment & Plan: Hasnt been transmitting cardiomems - will work with [email or web address] to trouble shoot - aim to drive pressures down Pain 05/14/2024 Hyperkalemia 05/07/2024 AVF (arteriovenous fistula) 08/11/2023 Gastroesophageal reflux disease 07/18/2023 Obesity, Class III, BMI 40-49.9 (morbid obesity) 11/08/2021 Overview (05/14/2024): Lifestyle modification including weight loss was discussed again during this encounter. History of liver transplant 04/28/2020 Overview (05/14/2024): Active follow-up at [place], [place] Hyperlipidemia 04/13/2020 Type 2 diabetes mellitus wit h diabetic chronic kidney disease 09/26/2019 Overview (05/14/2024): Last Assessment & Plan: Glucose well controlled yesterday. Received 1 unit of correction. PLAN: Continue insulin glargine 10 units subcutaneous QHS Continue insulin lispro 6 units subcutaneous QAC Continue insulin lispro correction 0-5 units subcutaneous QAC per low-dose scale Fingersticks QAC/QHS Last Assessment & Plan: Glucose well controlled yesterday. Received 1 unit of correction. 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 He is using hospital unit. PLAN: CPAP overnight Last Assessment & Plan: His home unit is here, but seems to be configured incorrectly. He is using hospital unit. PLAN: CPAP overnight Last Assessment & Plan: His home unit is here, but seems to be configured incorrectly. He is using hospital unit. PLAN: CPAP overnight Severe JC and nocturnal hypoxemia. Unable to tolerate AutoPap, CPAP, auto BiPAP. He did well on BiPAP during previous hospitalization at and during recent titration at [facility]. ESRD (end stage renal disease) on dialysis 09/13 Overview (05/14/2024): Last Assessment & Plan: Tolerated dialysis well yesterday. PLAN: Continue dialysis Last Assessment & Plan: Tolerated dialysis well yesterday. PLAN: Continue dialysis Last Assessment & Plan: Tolerated dialysis well yesterday. PLAN: Continue dialysis Last Assessment & Plan: Tolerated dialysis well yesterday. PLAN: Continue dialysis Active follow-up at Benign prostatic [...] shut off services in your home? No 08/05/2024 Interpersonal Safety Answer Date Record ed How often does anyone, claudette roberts family and friends, physically hurt you? Never 08/05/2024 How often does anyone, claudette roberts family and friends, insult or talk down to you? Never 08/05/2024 How often does anyone, claudette roberts family and friends, threaten you with harm? Never 08/05/2024 How often does anyone, claudette roberts family and friends, scream or curse at you? Never 08/05/2024 Housing Stability Answer Date Recorded What is your living situation today? I have a [facility] place to live 08/05/[address] you li ve. Do you have problems with any of the following? None of the above 08/05/2024 Food Insecurity Answer Date Recorded Within the past 12 months, y ou worried that your food would run out before you got money to buy more. Never true 08/05/2024 Within the past 12 months, t he food you bought just didn't last and you didn't have money to get more. Never true 08/05/2024 Transportation Needs Answer Date Record ed In the past 12 months, has l ack of reliable transportation kept you from medical appointments, meetings, work or from getting things needed for daily living? No 08/05/2024 Financial Resource Strain Answer Date R ecorded How hard is it for you to pa y for the very basics like food, housing, medical care, and heating? Would you say it is: Not hard at all 08/05/2024 Employment Answer Date Recorded Do you want help finding or keeping work or a job? I do not need or want help 08/05/2024 Family and Community Support Answer Gilbetr e Recorded If for any reason you need h elp with day-to-day activities such as bathing, preparing meals, shopping, managing finances, etc., do you get the help you need? I don't need any help 08/05/2024 Feeling Lonely or Isolated 0 08/05 Educational Attainment Answer Date Jorge rded Do you speak a language other than Guamanian at [facility]? No 08/05/2024 Do you want help with school or training? For example, starting or completing job training or getting a high school diploma, GED or equivalent. No 08/05/2024 Physical Activity Answer Date Recorded Number of minutes of exercise per week 0 08/05/2024 Self Management Answer Date Recorded Because of a physical, menta l, or emotional condition, do you have serious difficulty concentrating, remembering, or making decisions? (5 years or older) No 08/05/2024 Because of a physical, menta l, or emotional condition, do you have difficulty doing errands alone such as visiting a doctor's office or shopping? (15 years or older) No 08/05/2024 Substance Use Answer Date Recorded How many times in the past y ear have you used prescription drugs for non-medical reasons? Never 08/05/2024 How many times in the past year have you used [place] legal drugs? Never 08/05/2024 Mental Health Answer Date Recorded Calculation of above two rows 0 Sex and Gender Information Value Date Recorded Sex Assigned at Male 02/08/2022 8:44 PM CDT Legal Sex Male 8:44 PM CDT Gender Identity Male 02/08/2022 8:44 PM CDT Sexual Orientation Not on file Last Filed Vital Signs Vital Sign Reading Time Taken Comments Blood Pressure 111/57 08/07/2024 12:05 PM EST Pulse 91 08/07/2024 12:05 PM EST Temperature 36.7 C (98 F) 08/07/2024 12:00 PM EST Respiratory Rate 17 08/07/2024 12:05 PM EST Oxygen Saturation 93% 08/07/2024 12:05 PM EST Inhaled Oxygen Concentration - - Weight 138 kg (304 lb 3.8 oz) 08/05/2024 8:22 PM EST Height 175.3 cm (5' 9 ) 08/05/2024 8:22 PM EST Body Mass Index 44.93 08/05/2024 8:22 PM EST Plan of Treatment Health Maintenance Due Date Last Done Comments CT Colonography 1974 Colonoscopy 1974 Colorectal Cancer Screening 1974 FOBT/FIT 1974 Fit-DNA (Cologuard) 1974 Sigmoidoscopy 1974 Diabetic Eye Exam 02/26/1984 Depression Screening (12+) 1986 HIV Screening 1989 DTAP/TDAP/TD VACCINES (1 - Tdap) 1993 Shingles Vaccine (Zoster) (1 of 2) 1993 Lipid Panel 2009 Pneumococcal 50+ years (3 of 3 - PCV) 08/08/2018, 01/05/2016 COVID-19 VACCINE (3 - Modern a risk series) 10/26/2021 09/28/2021, 08/17/2021 Hemoglobin A1C 05/14/2024 Medicare Initial AWV [id number] 08/15/2024 Influenza Vaccine (#1) 2025 Tobacco Cessation Counseling and Screening (12+) 05/14/2025 05/14/2024 Hepatitis C Screening Completed 08/05/2024 , 05/15/2024, 05/07/2024 Procedures Procedure Name Priority Date/Time Associated Diagnosis Comments HEPATITIS PANEL, ACUTE STAT 08/05/2024 11:24 PM EST from Last 3 Months or Most Recently Relevant to Health Maintenance Results * Hepatitis panel, acute (08/05/2024 11:24 PM EST) Hep A IgM Nonreactive Nonreactive, Equivocal 08/06/2024 2:53 AM EST [facility] Hep B C IgM Nonreactive Nonreactive 08/06/2024 2:53 AM EST [facility] Hepatitis B surface antigen Nonreactive Nonreactive, Equivocal 08/06/2024 2:53 AM EST [facility] Hepatitis C Ab Nonreactive Nonreactive, Equivocal 08/06/2024 2:53 AM EST [facility] Blood Venipuncture / Unknown 08/05/2024 11:24 PM EST 08/05/2024 11:29 PM EST [facility] - 08/06/2024 2:53 AM EST Hepatitis A Antibody IgM: (a) A negative test result does not exclude the possibility of exposure to the hepatitis A virus. (b) This test [...] that have received blood component therapies, (e.g. whole blood, plasma, immunoglobulin) administered during the previous [...] related to biotin interference with lab tests. us Humble Blankenship MD LAB BLOOD ORDERABLES Final Resu lt [facility] [address] [id number], [facility] [phone] from Last 3 Months or Most Recently Relevant to Health Maintenance Insurance MEDICAID [facility] Advance Directives For more information, please contact: [phone] Documents on File Type Date Recorded Patient Automotive Sales Representative Expl anation Advance Directives and Livin g Will 01/17/2023 7:14 AM * Full Code (Latest Code Status on File) Date Activated Date Inactivated Comments 08/05/2024 7:10 PM 08/07/2024 2:22 PM * Full Code Date Activated Date Inactivated Comments 06/27/2024 10:22 PM 06/30/2024 3:09 PM * Full Code Date Activated Date Inactivated Comments 05/14/2024 4:20 PM 05/16/2024 8:52 PM * Full Code Date Activated Date Inactivated Comments 05/07/2024 12:52 PM 05/13/2024 12:59 PM Care Teams Return Agent Airport Relationship Specialty Start Date End Date Edgar Fournier MD [address] [place] [address] PCP - General Family Medicine 06/27/24
--- OUTSIDE RECORDS SUMMARY | 2025-06-10 12:44 | XMS_ITS | Encounter Summary ---
Author Organization [facility] Address [address] [place] [address] Care Team Providers Care Family Consumer Science Fcs Teacher Name Role Phone Edgar Fournier MD Primary Care Provider [phone] Enrique Griffith MD Unavailable [phone] Encounter Details Date Type Department Care Team (Late st Contact Info) Description 09/14/2016 [facility] OTTR Encounter Historical OTTR [address] [place] [address] Vera Rosales [place] [id number] Social History Tobacco Use Types Packs/Day Years Used Date Smoking Tobacco: Never Assessed Sex and Gender Information Value Date Recorded Sex Assigned at Not on file Legal Sex Male 6:10 PM EDT Gender Identity Not on file Sexual Orientation Straight 03/02/2021 10 :04 AM EDT documented as of this encounter Miscellaneous Notes * Progress Notes - Vera Rosales - 09/14/2016 3:13 PM EST [facility] radiology called - Mr Stauffer had [...] documented as of this encounter Care Teams Family Consumer Science Fcs Teacher Relationship Specialty Start Date End Date Edgar Fournier MD [address] [place] [address] PCP - General 12/25/20 Enrique Griffith MD [address] [place] [address] Referring Physician Nephrology 01/08/21 documented as of this encounter
--- OUTSIDE RECORDS SUMMARY | 2025-06-10 12:44 | XMS_ITS | Encounter Summary ---
Author Organization [facility] Address [address] [place] [address] Care Team Providers Care Bench Lay Out Technician Name Role Phone Edgar Fournier MD Primary Care Provider Enrique Griffith MD Unavailable [phone] Encounter Details Date Type Department Care Team (Late st Contact Info) Description 09/19/2016 [facility] OTTR Encounter Historical OTTR [address] [place] [address] Bridgett Márquez, RN [id number] [address] [place] [address] Social History Tobacco Use Types Packs/Day Years [...] He adv he is inpatient again at [facility]. He is trying to see if [...] EXTERNAL LAB - 09/19/2016 12:49 PM EST [facility] us Historical Provider LAB BLOOD ORDERABLES Final [...] EXTERNAL LAB 09/18/2016 2:15 PM EST [facility] EXTERNAL LAB - 09/19/2016 12:48 PM EST [facility] us Historical Provider LAB BLOOD ORDERABLES Final R esult EXTERNAL LAB documented in this encounter Visit Diagnoses Not on filedocumented in this encounter Additional Health Concerns Infection Onset Date Last Indicated Resolved Time COVID-19 Rule-Out 11/08/2021 11/08/2021 11/08/2021 8:06 AM EDT documented as of this encounter Care Teams Bench Lay Out Technician Relationship Specialty Start Date End Date Edgar Fournier MD [address] [place] [address] PCP - General 12/25/20 Enrique Griffith MD [address] [place] [address] Referring Physician Nephrology 01/08/21 documented as of this encounter
--- OUTSIDE RECORDS SUMMARY | 2025-06-10 12:44 | XMS_ITS ---
Author Organization [facility] Address [address] [place] [address] Care Team Providers Care Calculus Professor Name Role Phone Maile Valles RN Unavailable Unavail able Estephania Sharif PharmD Unavailable Christine Edgar Tolentino MD Primary Care Provider [phone] Khari Lema MD Unavailable [phone] Transplant Episode Liver Recipient [facility] ([place], [place]) - [facility] Organ Received: Liver Transplanted on 10/08/2017 Marked as Active Follow-up on 10/08/2017 Liver CoordinatorMaile Valles RN Phone: N/A Fax: N/A Email: N/A [place] Organ Diagnosis Organ Primary Contributory Liver Cirrhosis: [...] streptoc occal infection 06/08/2020 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 Donor Information Organ ABO Source Meets [...] Team Name Role Phone Fax Email Maile Valles RN Liver Coordinator N/A N/A N/A Khari Lema MD [facility] [employer] [phone] N/A Edgar Fournier MD Referring Physician [phone] N/A N/A Events Post-Transplant Pre-Transplant Admitted: 10/07/2017 Referred: 06/22/2017 Transplanted: 10/08/2017 Evaluation began: 8 Discharged: 10/27/2017 Committee: 08/29/2017 Center waitlisted: 8 Dialysis History Dialysis History Start End Type Comments Center 11/28/2022 Home Hemodialysis [phone] [facility] 09/26/2019 11/25/2022 Hemo [facility] Dialysis Center Information Center Phone Fax Address [facility] [phone] [address], [address] [place] [address] [facility] [phone] [place] [address]
--- OUTSIDE RECORDS SUMMARY | 2025-06-10 12:44 | XMS_ITS | Encounter Summary ---
Author Organization [employer] ([place], [place], [place], [place]) Address [address] [place] [address] Care Team Providers Care Loom Mechanic Name Role Phone Edgar Fournier MD Primary Care Provider [phone] Edgar Fournier MD Primary Care Provider [phone] Encounter Details Date Type Department Care Team (Late st Contact Info) Description 04/13/2020 Transcribed Document [facility] Family Medicine Formerly [facility] [place] [address] ProviderAmrit MD [address] [place] [address] Social History Tobacco Use Types Packs/Day [...] 04/13/2020 13:53 EDT by ALMA DELIA CASANOVA mending carrier Documentation Discharge Date/Time : 04/13/2020 14:00 EDT [...] - 04/13/2020 13:53 EDT Electronically signed by [facility] Conversion Revenue Audit Clerk Cerner at 12/04/2022 5:08 PM CDT documented in this encounter Plan of Treatment Not on file documented as of this encounter Visit Diagnoses Not on filedocumented in this encounter Care Teams Loom Mechanic Relationship Specialty Start Date End Date Edgar Fournier MD [address] [place] [address] PCP - General Family Medicine 01/17/23 06/26/24 Edgar Fournier MD [address] [place] [address] PCP - General Family Medicine 06/27/24 documented as of this encounter
--- OUTSIDE RECORDS SUMMARY | 2025-06-10 12:44 | XMS_ITS | Encounter Summary ---
Author Organization [employer] ([place], [place], [place], [place]) Address [address] [place] [address] Care Team Providers Care Physical Sciences Professor Name Role Phone Onesimo Garcia MD Primary Care Provider [phone] Onesimo Garcia MD Primary Care Provider Encounter Details Date Type Department Care Team (Late st Contact Info) Description 04/13/2020 Transcribed Document [facility] Family Medicine [facility] [place] [address] ProviderAmrit MD [address] [place] [address] Social History Tobacco Use Types Packs/Day [...] Amrit ProviderMD - 04/13/2020 1:53 PM CDT [facility] [place] [address] AIDEN ROLLINS JR :1975 Visit Time:04/13/2020 Your Visit Summary Your Care Team Admitting Physician - DAPHNEY STREET MD-CHANA Attending Physician - DAPHNEY STREET MD-NEP Primary Care Physician - ONESIMO GARCIA MD-FAM [...] at home: Medicines ??? Take or apply [id number] and prescription medicines only as told by [...] cannot use soap and water, use hand director instructional material. ? Change your bandage as told by [...] 05/09/2009 Document Revised: 03/12/2019 Document Reviewed: 03/12/2019 [email or web address] Patient Education ?? 2020 [employer] Emergency Awareness and Preventative Care STROKE is [...] Assistance with quitting is available by contacting 4-673-SWMH-NOW. This is a free resource providing counseling, [...] was given the opportunity to ask questions. Patient/Bar Examiner Name: Patient/Bar Examiner Signature: Relationship to Patient: Clinician/Hospital Bar Examiner Signature: Date: documented in this encounter Plan of Treatment Not on file documented as of this encounter Visit Diagnoses Not on filedocumented in this encounter Care Teams Physical Sciences Professor Relationship Specialty Start Date End Date Onesimo Garcia MD [address] [place], [place] [address] PCP - General Family Medicine 01/17/23 06/26/24 Onesimo Garcia MD [address] [place] [address] PCP - General Family Medicine 06/27/24 documented as of this encounter
--- OUTSIDE RECORDS SUMMARY | 2025-06-10 12:44 | XMS_ITS | Clinical Summary ---
Author Organization [facility] Address [address] [place] [address] Care Team Providers Care Specimen Accessioner Name Role Phone Edgar Fournier MD Primary Care Provider [phone] Allergies Active Allergy Reactions Criticality Noted Date [...] Blood Gluc Sensor (FreeStyle Leonel 2 Sensor) [facility] USE DIRECTED CHANGE EVERY 14 DAYS DIRECTED 09/07/19 24 Active cholecalciferol (VITAMIN D3) 1.25 MG (42812 UT) capsule Take 1 capsule by mouth [...] 77 11/02/2023 4:57 PM EDT Temperature 36.8 C (98.3 F) 11/02/2023 3:30 PM EDT Respiratory Rate 20 11/02/2023 4:57 PM EDT Oxygen Saturation 88% 11/02/2023 3:45 PM EDT Inhaled Oxygen Concentration - - Weight 122 kg (269 lb) 11/01/2023 6:14 AM EDT Height 175.3 cm (5' 9 ) 10/27/2023 1:55 PM EDT Body Mass Index 39.72 10/27/2023 1:55 PM EDT Plan of Treatment Health Maintenance Due Date Last Done Comments DIABETIC EYE EXAM 02/26/1984 DIABETIC FOOT EXAM 02/26/1984 TDAP/TD VACCINES (1 - Tdap) 1993 ZOSTER VACCINE (1 of 2) 1993 Pneumococcal Vaccine 50+ (3 of 3 - PCV) 08/08/2018 08/08/2017, 01/05/2016 COLOGUARD 2019 COLON CANCER SCREENING 5 YEA R SIGMOIDOSCOPY 2019 CT COLONOGRAPHY 2019 FIT Testing (1 year) 2019 ANNUAL WELLNESS VISIT 05/13/2020 FECAL OCCULT BLOOD TEST 05/02/2021 05/02/2020 HEMOGLOBIN A1C 02/11/2024 08/12/2023, 0811/2021, 09/21/2021, Additional history exists LIPID PANEL 09/26/2024 09/26/2023, 07/16, 04/07/2022, Additional history exists INFLUENZA VACCINE 03/14/2025 08/08/2017 COLONOSCOPY 10/20/2026 10/20/2016 COLORECTAL CANCER SCREENING 10/20/2026 Hepatitis B Completed 07/03/2014, 12/12, 12/31/1999, Additional history exists HEPATITIS C SCREENING Completed 10/27/2023 , 03/16/2023, 03/16/2023, Additional history exists Medical Devices Implanted Type Area Care Partner Device Identifier Shelf Expiration Date Model / Serial / Lot Kt Seal Hemos Abs Floseal Matrx Fast/Prep 10ml - [id number] Implanted:Qty : 1 on 04/29/2020 by Yinka Garnica MD at [facility] Implant N/A: Spine Lumbar [facility] 08/18/2021 [id number] / / [id number] Hemost Abs Surgifoam Sz100 8x12 10mm - [id number] Implanted:Qty : 1 on 04/29/2020 by Yinka Garnica MD at [facility] Implant N/A: Spine Lumbar [employer] [...] ve Non-Reacti ve 10/27/2023 6:02 AM EDT [facility] Hep A IgM Non-Reacti ve Non-Reacti ve 10/27/2023 6:02 AM EDT [facility] Hep B C IgM Non-Reacti ve Non-Reacti ve 10/27/2023 6:02 AM EDT [facility] Hepatitis C Ab Non-Reacti ve Non-Reacti ve 10/27/2023 6:02 AM EDT [facility] Blood Venipuncture / Unknown 10/27/2023 5:00 AM EDT 10/27/2023 5:29 AM EDT Narrative [facility] - 10/27/2023 6:02 AM EDT Results may be falsely decreased if patient taking Biotin. us Jennifer Davison MD LAB BLOOD ORDERABLES Final Resul t [facility]
[address] [place] [address], * Lipid Panel (09/26/2023) Blood Claudia Calles MD LAB BLOOD ORDERABLES Final R esult Performing Organization Address [facility]/ZIP Co de Phone Number [facility]
[address] [place] [address], * (ABNORMAL) Hemoglobin A1c (08/12/2023 5:59 AM EST) Hemoglobin A1C 6.50(H) 4.80 - 5.60 % 08/12/2023 6:49 AM EST [facility] Blood Venipuncture / Unknown 08/12/2023 5:59 AM EST 08/12/2023 6:31 AM EST Narrative [facility] - 08/12/2023 6:49 AM EST Hemoglobin A1C Ranges: Increased Risk for Diabetes 5.7% to 6.4% Diabetes >= 6.5% Diabetic Goal < 7.0% Kaila Jhaveri MD LAB BLOOD ORDERABLES Fin al Result Performing Organization Address [facility] de Phone Number [facility]
[address] [place] [address], * (ABNORMAL) Occult Blood X 1, Stool - Stool, Per Rectum (05/02/2020 12:49 PM EDT) Fecal Occult Blood Positive( A) Negative DISK DIFFUSION 05/02/2020 1:50 PM EDT [facility] Stool Specimen from rectum / Unknown Collection / Unknown 05/02/2020 12:49 PM EDT 05/02/2020 1:01 PM EDT Odette Grace MD BODY FLUIDS AND STOOLS ORDERABLE S Final Result Performing Organization Address [facility] Co de Phone Number [facility]
[address] [place] [address], from Last 3 Months or Most Recently Relevant to Health [place] [id number] MEDICAID [place] [facility] MEDICARE ADVANTAGE Advance Directives * CPR (Attempt [...] pulse or is breathing): Full Care Teams Specimen Accessioner Relationship Specialty Start Date End Date Edgar Fournier MD [address] [place] [address] PCP - General Family Medicine 04/27/20
--- OUTSIDE RECORDS SUMMARY | 2025-06-10 12:44 | XMS_ITS | Referral Summary ---
Author Organization [employer] ([place], [place], [place], [place]) Address [address] [place] [address] Care Team Providers Care Engineering Instructor Name Role Phone Edgar Fournier MD Primary Care Provider [phone] Allergies Active Allergy Reactions Criticality Noted Date [...] been transmitting cardiomems - will work with [employer] to trouble shoot - aim to drive pressures down Pain 05/14/2024 Hyperkalemia 05/07/2024 AVF (arteriovenous fistula) 08/11/2023 Gastroesophageal reflux disease 07/18/2023 Obesity, Class III, BMI 40-49.9 (morbid obesity) 11/08/2021 Overview (05/14/2024): Lifestyle modification including weight loss was discussed again during this encounter. History of liver transplant 04/28/2020 Overview (05/14/2024): Active follow-up at [place], [place] Hyperlipidemia 04/13/2020 Type 2 diabetes mellitus [...] hospitalization at and during recent titration at [facility]. ESRD (end stage renal disease) on [...] your living situation today? I have a [facility] place to live 08/05/2024 Think about [...] help 08/05/2024 Family and Community Support Answer Gilbert e Recorded If for any reason you need h elp with day-to-day activities such as bathing, preparing meals, shopping, managing finances, etc., do you get the help you need? I don't need any help 08/05/2024 Feeling Lonely or Isolated 0 08/05 Educational Attainment Answer Date Jorge rded Do you speak a language other than [place]ian at [facility]? No 08/05/2024 Do you want help with [...] 08/05/2024 8:22 PM EST Plan of Treatment Not on file Procedures Procedure Name Priority Date/Time Associated Diagnosis Comments HEPATITIS PANEL, ACUTE STAT 08/05/2024 11:24 PM EST from Last 3 Months or Most Recently Relevant to Health Maintenance Results * Hepatitis panel, acute (08/05/2024 11:24 PM EST) Hep A IgM Nonreactive Nonreactive, Equivocal 08/06/2024 2:53 AM EST [facility] Hep B C IgM Nonreactive Nonreactive 08/06/2024 2:53 AM EST [facility] Hepatitis B surface antigen Nonreactive Nonreactive, Equivocal 08/06/2024 2:53 AM EST [facility] Hepatitis C Ab Nonreactive Nonreactive, Equivocal 08/06/2024 2:53 AM EST [facility] Blood Venipuncture / Unknown 08/05/2024 11:24 PM EST 08/05/2024 11:[address] [facility] - 08/06/2024 2:53 AM EST [...] related to biotin interference with lab tests. Humble Blankenship MD LAB BLOOD ORDERABLES Final Resu lt [facility] [address] [phone] from Last 3 Months or Most Recently Relevant to Health Maintenance Insurance MEDICAID [employer] Member Subscriber Plan / Payer (Ef fective 2023-Present) Name:Aiden Stauffer Jr. Relation to Subscriber:Self Name:Aiden Stauffer Jr. Payer ID:[id number] Group ID:Not on file Type:Not on file [address] Advance Directives For more information, please contact: [phone] Documents on File Type Date Recorded Patient Volunteer Services Assistant Expl anation Advance Directives and Livin g [...] 12:52 PM 05/13/2024 12:59 PM Care Teams Engineering Instructor Relationship Specialty Start Date End Date Edgar Fournier MD [address] [place], [place] [address] [place] [address] PCP - General Family Medicine 06/27/24
--- OUTSIDE RECORDS SUMMARY | 2025-06-10 12:44 | XMS_ITS | Encounter Summary ---
Author Organization [employer] ([place], [place], [place], [place]) Address [address] [place] [address] Care Team Providers Care Iron Piler Name Role Phone Onesimo Garcia MD Primary Care Provider [phone] Onesimo Garcia MD Primary Care Provider [phone] Encounter Details Date Type Department Care Team (Late st Contact Info) Description 04/13/2020 Transcribed Document [facility] [place] [facility] [place] [address] ProviderAmrit MD [address] [place] [address] Social History Tobacco Use Types Packs/Day Years Used Date Smoking Tobacco: Never Assessed Sex and Gender Information Value Date Recorded Sex Assigned at Male 02/08/2022 8:44 PM CDT Legal Sex Male 8:44 PM CDT Gender Identity Male 02/08/2022 8:44 PM CDT Sexual Orientation Not on file documented as of this encounter Miscellaneous Notes * Cerner Conversion Note - Amrit ProviderMD - 04/13/2020 1:47 PM CDT [place] [address] AIDEN ROLLINS JR :1975 Visit Time:04/13/2020 [...] at home: Medicines ??? Take or apply [id number] and prescription medicines only as told by [...] cannot use soap and water, use hand pharmacy benefits coordinator. ? Change your bandage as told [...] 05/09/2009 Document Revised: 03/12/2019 Document Reviewed: 03/12/2019 [employer] Patient Education ?? 2020 [employer]. Emergency Awareness and Preventative Care STROKE is [...] Assistance with quitting is available by contacting 8-263-NCFZ-NOW. This is a free resource providing counseling, [...] was given the opportunity to ask questions. Patient/Crusher Machine Operator Name: Patient/Crusher Machine Operator Signature: Relationship to Patient: Clinician/Hospital Crusher Machine Operator Signature: Date: documented in this encounter Plan of Treatment Not on file documented as of this encounter Visit Diagnoses Not on filedocumented in this encounter Care Teams Iron Piler Relationship Specialty Start Date End Date Onesimo Garcia MD [address] [place], [place] [address] PCP - General Family Medicine 01/17/23 06/26/24 Onesimo Garcia MD [address] [place] [address] PCP - General Family Medicine 06/27/24 documented as of this encounter
--- OUTSIDE RECORDS SUMMARY | 2025-06-10 12:44 | XMS_ITS | Encounter Summary ---
Author Organization [employer] ([place], [place], [place], [place]) Address [address] [place] [address] Care Team Providers Care Carnallite Plant Operator Name Role Phone Edgar Fournier MD Primary Care Provider [phone] Edgar Fournier MD Primary Care Provider [phone] Encounter Details Date Type Department Care Team (Late st Contact Info) Description 04/13/2020 Transcribed Document [facility] Family [place] [facility] [place] [address] ProviderAmrit MD [address] [place] [id number] Social History Tobacco Use Types Packs/Day Years Used Date Smoking Tobacco: Never Assessed Sex and Gender Information Value Date Recorded Sex Assigned at Male 02/08/2022 8:44 PM CDT Legal Sex Male 8:44 PM CDT Gender Identity Male 02/08/2022 8:44 PM CDT Sexual Orientation Not on file documented as of this encounter Miscellaneous Notes * Cerner Conversion Note - Historical ProviderMD - 04/13/2020 1:12 PM CDT Patient: AIDEN ROLLINS JR Age: 45 years Sex: Male : 1975 Associated Diagnoses: None Author: MARY CHAO PA Pre-OP/Procedure Diagnosis: Renal Failure. Indication: Request for catheter removal. Catheter no longer needed Procedure Performed: Dialysis catheter removal Procedural MD: Dr. Guzmán Meteorological Engineer: Mary Chao PA-C; Maile Connolly PA-C Sedation: None Findings: Successful removal of dialysis catheter Complications: None EBL: Minimal Specimen(s) Removed: None Full report to follow. documented in this encounter Plan of Treatment Not on file documented as of this encounter Visit Diagnoses Not on filedocumented in this encounter Care Teams Carnallite Plant Operator Relationship Specialty Start Date End Date Edgar Fournier MD [address] [place] [address] PCP - General Family Medicine 01/17/23 06/26/24 Edgar Fournier MD [address] [place] [address] PCP - General Family Medicine 06/27/24 documented as of this encounter
--- OUTSIDE RECORDS SUMMARY | 2025-06-10 12:44 | XMS_ITS | Encounter Summary ---
Author Organization [facility] Address [address] [place] [address] Care Team Providers Care Employee Health Rn Name Role Phone Edgar Fournier MD Primary Care Provider Enrique Griffith MD Unavailable [phone] Encounter Details Date Type Department Care Team (Late st Contact Info) Description 07/19/2017 [facility] Encounter Historical OTTR [address] [place] [address] Christa Knowles [place] [id number] Social History Tobacco Use Types Packs/Day Years [...] Op Cot US Abd Doppler w/[employer] [id number], NPR per Michelle MDCD online pre-cert look uptool. Nurse, rad [...] EXTERNAL LAB - 08/03/2017 2:33 PM EST [facility] us Historical Provider LAB BLOOD ORDERABLES Final R esult EXTERNAL LAB documented in this encounter Visit Diagnoses Not on filedocumented in this encounter Additional Health Concerns Infection Onset Date Last Indicated Resolved Time COVID-19 Rule-Out 11/08/2021 11/08/2021 11/08/2021 8:06 AM EDT documented as of this encounter Care Teams Employee Health Rn Relationship Specialty Start Date End Date Edgar Fournier MD [address] [place] [address], [place] [address] PCP - General 12/25/20 Enrique Griffith MD [address] [place] [address] Referring Physician Nephrology 01/08/21 documented as of this encounter
--- OUTSIDE RECORDS SUMMARY | 2025-06-10 12:44 | XMS_ITS | Encounter Summary ---
Author Organization [facility] Address [address] [place] [address] Care Team Providers Care Resource Management Specialist Name Role Phone Edgar Fournier MD Primary Care Provider Enrique Griffith MD Unavailable [phone] Encounter Details Date Type Department Care Team (Late st Contact Info) Description 11/01/2016 [facility] Encounter Historical OTTR [address] [place] [address] Provider, Amrit [address] [place] [address] Social History Tobacco Use Types Packs/Day [...] 11/01/2016 3:53 PM EDT NAVNEET submitted for [employer] documented in this encounter Plan of Treatment Not on file documented as of this encounter Visit Diagnoses Not on filedocumented in this encounter Additional Health Concerns Infection Onset Date Last Indicated Resolved Time COVID-19 Rule-Out 11/08/2021 11/08/2021 11/08/2021 8:06 AM EDT documented as of this encounter Care Teams Resource Management Specialist Relationship Specialty Start Date End Date Edgar Fournier MD [address] [place] [address] PCP - General 12/25/20 Enrique Griffith MD [address] [place] [id number] Referring Physician Nephrology 01/08/21 documented as of this encounter
--- OUTSIDE RECORDS SUMMARY | 2025-06-10 12:44 | XMS_ITS | Encounter Summary ---
Author Organization [employer] ([place], [place], [place], [place]) Address [address] [place] [address] Care Team Providers Care Jewel Sorter Name Role Phone Onesimo Garcia MD Primary Care Provider [phone] Onesimo Garcia MD Primary Care Provider [phone] Encounter Details Date Type Department Care Team (Late st Contact Info) Description 04/13/2020 Transcribed Document [place] Family [place] [facility] [place] [address] ProviderAmrit MD [address] [place] [address] Social History Tobacco Use Types Packs/Day Years Used Date Smoking Tobacco: Never Assessed Sex and Gender Information Value Date Recorded Sex Assigned at Male 02/08/2022 8:44 PM CDT Legal Sex Male 8:44 PM CDT Gender Identity Male 02/08/2022 8:44 PM CDT Sexual Orientation Not on file documented as of this encounter Miscellaneous Notes * Cerner Conversion Note - Amrit ProviderMD - 04/13/2020 1:52 PM CDT [facility] [place] [address] AIDEN ROLLINS JR :1975 Visit Time:04/13/2020 [...] at home: Medicines ??? Take or apply nchu-ehv-raruthj and prescription medicines only as told by [...] cannot use soap and water, use hand crosscutter rolled glass. ? Change your bandage as told by [...] 05/09/2009 Document Revised: 03/12/2019 Document Reviewed: 03/12/2019 [employer] Patient Education ?? 2020 [employer]. Emergency Awareness and Preventative Care STROKE is [...] Assistance with quitting is available by contacting 6-354-GWCE-NOW. This is a free resource providing counseling, [...] was given the opportunity to ask questions. Patient/Parts Washer Name: Patient/Parts Washer Signature: Relationship to Patient: Clinician/Hospital Parts Washer Signature: Date: documented in this encounter Plan of Treatment Not on file documented as of this encounter Visit Diagnoses Not on filedocumented in this encounter Care Teams Jewel Sorter Relationship Specialty Start Date End Date Onesimo Garcia MD [address] [place], [place] [address] PCP - General Family Medicine 01/17/23 06/26/24 Onesimo Garcia MD [address] [place] [address] PCP - General Family Medicine 06/27/24 documented as of this encounter
--- OUTSIDE RECORDS SUMMARY | 2025-06-10 12:44 | XMS_ITS | Encounter Summary ---
Author Organization [facility] Address [address] [place] [address] Care Team Providers Care Or Rn Name Role Phone Edgar Fournier MD Primary Care Provider [phone] Enrique Griffith MD Unavailable [phone] Encounter Details Date Type Department Care Team (Late st Contact Info) Description 09/22/2016 [facility] Encounter Historical OTTR [address] [place] [address] Bridgett Márquez, RN [facility] [id number] [address] [place] [address] Social History Tobacco Use Types Packs/Day Years [...] antibiotics and fluids. Will obtain records from [facility] Patient also needs to have repeat EGD NIELS. PHd Dr. Chauhan [phone] msg with program scheduler. documented in this encounter Plan of Treatment Not on file documented as of this encounter Visit Diagnoses Not on filedocumented in this encounter Additional Health Concerns Infection Onset Date Last Indicated Resolved Time COVID-19 Rule-Out 11/08/2021 11/08/2021 11/08/2021 8:06 AM EDT documented as of this encounter Care Teams Or Rn Relationship Specialty Start Date End Date Edgar Fournier MD [address] [place] [address] PCP - General 12/25/20 Enrique Griffith MD [address] [place] [address] Referring Physician Nephrology 01/08/21 documented as of this encounter
--- OUTSIDE RECORDS SUMMARY | 2025-06-10 12:44 | XMS_ITS | Encounter Summary ---
Author Organization [facility] Address [facility] [place] [address] Care Team Providers Care Stagecraft Teacher Name Role Phone Edgar Fournier MD Primary Care Provider [phone] Maile Valles RN Unavailable Unavail able Jack Ordoñez MD Unavailable [phone] Estephania Sharif PharmD Unavailable Christine vailable System, Provider Not In Primary Care Provider Un available Edgar Fournier MD Primary Care Provider [phone] Khari Lema MD Unavailable [phone] Source Comments This information has been disclosed [...] release of HIV test results or diagnoses. [id number] Health Encounter Details Date Type Department Care Team (Late st Contact Info) Description 01/27/2020 Orders Only [facility] Outreach Lab Test Referral Center [address] [place] [phone] Altagracia Maria Liver replaced by transplant ([facility]); Pharmacologic therapy; Encounter for therapeutic drug monitoring; Transplanted liver ([facility]); Drug therapy Social History Tobacco Use Types [...] Description 06/12/2025 1:59 PM EDT Hospital Encounter [facility] Cardiac Graphic Art Technician [address] [place] [phone] Cuong Dobson MD [address] [facility] [place] [phone] Essential (primary) hypertension; Type 2 diabetes 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, with long-term current use of insulin ([facility]); ESRD (end stage renal disease) on dialysis ([facility]); Pre-transplant evaluation for kidney transplant; High risk surgery, pre-operative cardiovascular examination 06/12/2025 1:59 PM EDT - 06/12/2025 3:00 PM EDT Surgery [facility] Cardiac Graphic Art Technician [address] [place] [phone] Cuong Dobson MD [address] [facility] [place] [address] Left and Right Heart Cath documented as of this encounter Procedures Procedure Name Priority Date/Time Associated Diagnosis Comments HEPATIC FUNCTION PANEL Routine 01/27/2020 1:57 PM EDT Transplanted liver ([facility]) Drug therapy CYCLOSPORINE LEVEL Routine 01/27/2020 1: 57 PM EDT Liver replaced by transplant ([facility]-HCC) Pharmacologic therapy Encounter for therapeutic drug monitoring documented in this encounter Results * Hepatic Function Panel (01/27/2020 1:57 PM EDT) Total Bilirubin 0.4 0.0 - 1.5 mg/dL 01/27/2020 4:00 PM EDT [facility] Bilirubin, Direct 0.08 0.00 - 0.40 mg/dL 01/27/2020 4:00 PM EDT [facility] AST 14 13 - 39 U/L 01/27/2020 4:00 PM EDT [facility] ALT 14 7 - 52 U/L 01/27/2020 4:00 PM EDT [facility] Alkaline Phosphatase 113 36 - 125 U/L 01/27/2020 4:00 PM EDT [facility] Total Protein 6.8 6.4 - 8.9 g/dL 01/27/2020 4:00 PM EDT [facility] Albumin 4.3 3.5 - 5.7 g/dL 01/27/2020 4:00 PM EDT [facility] Bilirubin, Indirect 0.32 0.00 - 1.10 mg/dL 01/27/2020 4:00 PM EDT [facility] Plasma specimen (specimen) 01/27/2020 1:57 PM EDT 01/27/2020 2:51 PM EDT Narrative [facility] - 01/27/2020 4:00 PM EDT Standing labs monthly. Please fax results to [phone] us Jack Ordoñez MD LAB BLOOD ORDERABLES Final Re sult [facility] [address] [facility] [place] [address], [facility] * (ABNORMAL) Cyclosporine level (01/27/2020 1:57 PM EDT) Cyclosporine, Blood 86(L) 100 - 400 ng/mL 01/28/2020 2:15 PM EDT [facility] Comment: Detection limit: 30 ng/mL. Performed via chemiluminescent microparticle immunoassay on the [employer] i1000. Whole blood specimen (specimen) 01/27/2020 1:57 PM EDT 01/27/2020 2:51 PM EDT Narrative [facility] - 01/28/2020 2:15 PM EDT Standing lab; draw frequency will vary based on condition. Fax results to [phone]. Call critical values to [phone]. us Jack Ordoñez MD LAB BLOOD ORDERABLES Final Re sult [facility] [address] [place] [address], [facility] documented in this encounter Visit Diagnoses Diagnosis Liver replaced by transplant (CMS-HCC) Liver replaced by transplant Pharmacologic therapy Encounter for other specified aftercare Encounter for therapeutic drug monitoring Transplanted liver ([facility]) Liver replaced by transplant Drug therapy Encounter for other specified aftercare Essential (primary) hypertension Unspecified essential hypertension Type 2 diabetes 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, with long-term current use of insulin ([facility]) ESRD (end stage renal disease) on dialysis ([facility]) End stage renal disease Pre-transplant evaluation for kidney transplant High risk surgery, pre-operative cardiovascular examination Pre-operative cardiovascular examination Essential (primary) hypertension Unspecified essential hypertension Type 2 diabetes 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, with long-term current use of insulin ([facility]) ESRD (end stage renal disease) on dialysis ([facility]) End stage renal disease Pre-transplant evaluation for [...] documented as of this encounter Care Teams Stagecraft Teacher Relationship Specialty Start Date End Date Edgar Fournier MD [address] [place] [address] PCP - General 08/18/17 06/23/21 System, Provider Not In PCP - General 06/24/21 12/21/21 Edgar Fournier MD [address] [place] [address] [place] [address] PCP - General 12/22/21 Maile Valles, JANA Txp Post Coordinator Transplant Hepatology 11/07/17 Jack Ordoñez MD [address] [place] [address] Consulting Physician Transplant Hepatology 01/05/18 Estephania Sharif, DarrianD Pharmacist Pharmacist 11/11/19 Khari Lema MD [address] [facility] [address] [place] [address] Txp Corporate Wellness Coordinator Transplant Hepatology 05/29/25 documented as of this encounter
--- OUTSIDE RECORDS SUMMARY | 2025-06-10 12:44 | XMS_ITS | Encounter Summary ---
Author Organization [employer] ([place], [place], [place], [place]) Address [address] [place] [address] Care Team Providers Care Mamma Logist Name Role Phone Edgar Fournier MD Primary Care Provider [phone] Edgar Fournier MD Primary Care Provider [phone] Encounter Details Date Type Department Care Team (Late st Contact Info) Description 04/13/2020 Transcribed Document [facility] [place] [address] ProviderAmrit MD [address] [place] [phone] Social History Tobacco Use Types Packs/Day Years [...] at home: Medicines ??? Take or apply ihdo-eyr-[id number] and prescription medicines only as told by [...] cannot use soap and water, use hand gas system operator. ? Change your bandage as told by [...] 05/09/2009 Document Revised: 03/12/2019 Document Reviewed: 03/12/2019 [employer] Patient Education ? 2020 [employer]. documented in this encounter Plan of Treatment Not on file documented as of this encounter Visit Diagnoses Not on filedocumented in this encounter Care Teams Mamma Logist Relationship Specialty Start Date End Date Edgar Fournier MD [address] [place] [address] PCP - General Family Medicine 01/17/23 06/26/24 Edgar Fournier MD [address] [place] [address] PCP - General Family Medicine 06/27/24 documented as of this encounter
--- OUTSIDE RECORDS SUMMARY | 2025-06-10 12:45 | XMS_ITS | Encounter Summary ---
Author Organization [facility] Address [address] [place] [address] Care Team Providers Care Aerotriangulation Specialist Name Role Phone Edgar Fournier MD Primary Care Provider Enrique Griffith MD Unavailable [phone] Encounter Details Date Type Department Care Team (Late st Contact Info) Description 06/22/2017 [facility] Encounter Historical OTTR [address] [place] [address] Malou Gonzalez, RN [facility] [id number] [address] [place] [address] Social History Tobacco Use Types Packs/Day Years [...] relief. Pt unhappy with care provided at [facility] ER. Pt to come to ED for assessment. documented in this encounter Plan of Treatment Not on file documented as of this encounter Visit Diagnoses Not on filedocumented in this encounter Additional Health Concerns Infection Onset Date Last Indicated Resolved Time COVID-19 Rule-Out 11/08/2021 11/08/2021 11/08/2021 8:06 AM EDT documented as of this encounter Care Teams Aerotriangulation Specialist Relationship Specialty Start Date End Date Edgar Fournier MD [address] [place] [address] PCP - General 12/25/20 Enrique Griffith MD [address] [place] [address] Referring Physician Nephrology 01/08/21 documented as of this encounter
--- OUTSIDE RECORDS SUMMARY | 2025-06-10 12:45 | XMS_ITS | Encounter Summary ---
Author Organization [facility] Address [address] [place] [address] Care Team Providers Care Bead Flipper Name Role Phone Edgar Fournier MD Primary Care Provider Enrique Griffith MD Unavailable [phone] Encounter Details Date Type Department Care Team (Late st Contact Info) Description 05/17/2017 [facility] OT[facility] Encounter Historical OTTR [address] [place] [address] Bridgett Márquez, RN [facility] [id number] [address] [place] [address] Social History Tobacco Use Types Packs/Day Years [...] as of this encounter Care Teams Bead Flipper Relationship Specialty Start Date End Date Edgar Fournier MD [address] [place] [address] PCP - General 12/25/20 Enrique Griffiht MD [address] [place] [address] Referring Physician Nephrology 01/08/21 documented as of this encounter
--- OUTSIDE RECORDS SUMMARY | 2025-06-10 12:45 | XMS_ITS | Encounter Summary ---
Author Organization [facility] Address [address] [place] [address] Care Team Providers Care Envelope Adjuster Name Role Phone Edgar Fournier MD Primary Care Provider Enrique Griffith MD Unavailable [phone] Encounter Details Date Type Department Care Team (Late st Contact Info) Description 06/21/2017 [facility] OTTR Encounter Historical OTTR [address] [place] [address] Vera Rosales [place] [id number] Social History Tobacco Use Types Packs/Day Years [...] if you have any questions about this [phone]. documented in this encounter Plan of Treatment Not on file documented as of this encounter Visit Diagnoses Not on filedocumented in this encounter Additional Health Concerns Infection Onset Date Last Indicated Resolved Time COVID-19 Rule-Out 11/08/2021 11/08/2021 11/08/2021 8:06 AM EDT documented as of this encounter Care Teams Envelope Adjuster Relationship Specialty Start Date End Date Edgar Fournier MD [address] [place] [address] PCP - General 12/25/20 Enrique Griffith MD [address] [place] [address] Referring Physician Nephrology 01/08/21 documented as of this encounter
--- OUTSIDE RECORDS SUMMARY | 2025-06-10 12:45 | XMS_ITS | Encounter Summary ---
Author Organization [facility] Address [address] [place] [id number] Care Team Providers Care Instructional Systems Designer Name Role Phone Edgar Fournier MD Primary Care Provider Enrique Griffith MD Unavailable [phone] Encounter Details Date Type Department Care Team (Late st Contact Info) Description 07/14/2017 [facility] OT[facility] Encounter Historical OTTR [address] [place] [address] Raquel Toribio, CLOUD DEVELOPER [facility] [address] [place] [address] Social History Tobacco Use Types Packs/Day Years [...] documented as of this encounter Care Teams Instructional Systems Designer Relationship Specialty Start Date End Date Edgar Fournier MD [address] [place] [address] PCP - General 12/25/20 Enrique Griffith MD [address] [place] [address] Referring Physician Nephrology 01/08/21 documented as of this encounter
--- OUTSIDE RECORDS SUMMARY | 2025-06-10 12:45 | XMS_ITS | Encounter Summary ---
Author Organization [facility] Address [address] [place] [address] Care Team Providers Care Account Supervisor Name Role Phone Edgar Fournier MD Primary Care Provider [phone] Enrique Griffith MD Unavailable [phone] Encounter Details Date Type Department Care Team (Late st Contact Info) Description 06/22/2017 [facility] OTTR Encounter Historical OTTR [address] [place] [address] [place] [address] Social History Tobacco Use Types Packs/Day Years [...] as of this encounter Care Teams Account Supervisor Relationship Specialty Start Date End Date Edgar Fournier MD [address] [place] [address] PCP - General 12/25/20 Enrique Girffith MD [address] [place] [address] Referring Physician Nephrology 01/08/21 documented as of this encounter
--- OUTSIDE RECORDS SUMMARY | 2025-06-10 12:45 | XMS_ITS | Patient Health Record ---
Author Organization [facility] Address [address] [place] [address] Care Team Providers Care Furnace Utility Operator Name Role Phone AARTI BRITO Unavailable [phone] Reason For Referral No Information Medications Medication [...] ONCE A WEEK Active Vitamin D (Ergocalciferol) 69610 UNIT 1 capsule Orally EVERY , , [...] Notes Problem Anemia in chronic kidney disease (363362130) Anemia in chronic kidney disease (D63.1) Active confirmed Problem Hyperkalemia (51618776) Hyperkalemia (E87.5) Active confirmed Problem End stage renal disease (58656118) End stage renal disease (N18.6) Active confirmed Problem Benign hypertension (12817761) Benign hypertension (I10) Active confirmed Problem Diarrhea of presumed infectious origin (05360555) Diarrhea of presumed infectious origin (A09) Active confirmed Problem Dependence on hemodialysis (653297612) Dependence on hemodialysis (Z99.2) Active confirmed Plan Of Treatment No Information Insurance Providers Payer Name Payer Address Payer Phone Subscriber Number Group Number Insured Name Patient Relationship to Insured Coverage Start Date Coverage End Date BCBS MEDICARE [address] [place] [address] [id number] LEONCIO ROLLINS Self - patient is the insured Medicaid of [place] [address] [place] [address] [phone] [id number] LEONCIO ROLLINS Self - patient is the insured Medical (General) History Medical History History ICD Code ANEMIA, CKD, HYPERKALEMIA, END STAGE ESTELITA AL DISEASE, HERNIA HYPERLIPIDEMIA, HTN, ANXIETY, ALLERGIES, LOW TESTOSTERONE DIABETES, GERD, Surgical History Surgery Date(Month/Year) TUNNEL FISTULA 09/14/2022 LIVER TRANSPLANT
--- OUTSIDE RECORDS SUMMARY | 2025-06-10 12:45 | XMS_ITS | Encounter Summary ---
Author Organization [facility] Address [address] [place] [address] Care Team Providers Care Regional Safety Manager Name Role Phone Edgar Fournier MD Primary Care Provider Enrique Griffith MD Unavailable [phone] Encounter Details Date Type Department Care Team (Late st Contact Info) Description 07/04/2017 [facility] OTTR Encounter Historical OTTR [address] [place] [address] [facility] [address] [place] [address] Social History Tobacco Use Types Packs/Day Years [...] documented as of this encounter Care Teams Regional Safety Manager Relationship Specialty Start Date End Date Edgar Fournier MD [address] [place] [address] PCP - General 12/25/20 Enrique Griffith MD [address] [place] [address] Referring Physician Nephrology 01/08/21 documented as of this encounter
--- OUTSIDE RECORDS SUMMARY | 2025-06-10 12:45 | XMS_ITS | Encounter Summary ---
Author Organization [facility] Address [address] [place] [address] Care Team Providers Care Saw Filer Name Role Phone Edgar Fournier MD Primary Care Provider [phone] Enrique Griffith MD Unavailable Encounter Details Date Type Department Care Team (Late st Contact Info) Description 06/30/2017 [facility] OTTR Encounter Historical OTTR [address] [place] [address] Jaren Naqvi MD [address] [place] [address] Social History Tobacco Use Types Packs/Day Years [...] documented as of this encounter Care Teams Saw Filer Relationship Specialty Start Date End Date Edgar Fournier MD [address] [place] [address] PCP - General 12/25/20 Enrique Griffith MD [address] [place] [address] Referring Physician Nephrology 01/08/21 documented as of this encounter
--- OUTSIDE RECORDS SUMMARY | 2025-06-10 12:45 | XMS_ITS | Encounter Summary ---
Author Organization [facility] Address [address] [place] [id number] Care Team Providers Care Research Leader Name Role Phone Edgar Fournier MD Primary Care Provider Enrique Griffith MD Unavailable [phone] Encounter Details Date Type Department Care Team (Late st Contact Info) Description 07/03/2017 [facility] OTTR Encounter Historical OTTR [address] [place] [address] Bridgett Márquez, RN [id number] [address] [place] [address] Social History Tobacco Use Types Packs/Day Years [...] as of this encounter Care Teams Research Leader Relationship Specialty Start Date End Date Edgar Fournier MD [address] [place] [address] PCP - General 12/25/20 Enrique Griffith MD [address] [place] [address] Referring Physician Nephrology 01/08/21 documented as of this encounter
--- OUTSIDE RECORDS SUMMARY | 2025-06-10 12:45 | XMS_ITS ---
Author Organization [facility] Address [address] [place] [address] Care Team Providers Care Mold Machine Operator Name Role Phone Maile Valles RN Unavailable Unavail able Estephania Sharif PharmD Unavailable Christine Edgar Tolentino MD Primary Care Provider [phone] Khari Lema MD Unavailable [phone] Transplant Episode Kidney Candidate [facility] ([place], [place]) - [facility] Evaluation began on 02/04/2025 Marked as Active on 02/04/2025 Kidney CoordinatorStan Moise RN Phone: N/A Fax: N/A Email: N/A Scores Score Value Updated Exceptions/Reas ons CPRA Not available EPTS (Calc) 80 06/10/2025 Stebbins Organ Diagnosis Organ Primary Contributory Kidney Other, Specify - Transplant Comp lications Care Team Name Role Phone Fax Email Stan Moise RN Kidney Coordinator N/A N/A N/A Man Sky MD Referring Physician [phone] N/A Events Pre-Transplant Referred: 11/05/2024 Evaluation began: 02/04/2025 Committee: 02/10/2025 Dialysis History Dialysis History Start End Type [facility] 11/28/2022 Home Hemodialysis [phone] [facility] 09/26/2019 11/25/2022 Hemo [facility] Dialysis Center Information Center Phone Fax Address [facility] [phone] [address] [place] [id number] [facility] [phone] [place], [place] [address]
--- OUTSIDE RECORDS SUMMARY | 2025-06-10 12:46 | XMS_ITS | Encounter Summary ---
Author Organization [facility] Address [address] [place] [id number] Care Team Providers Care Supervisor Cooler Service Name Role Phone Edgar Fournier MD Primary Care Provider Enrique Griffith MD Unavailable [phone] Encounter Details Date Type Department Care Team (Late st Contact Info) Description 04/18/2017 [facility] OTTR Encounter Historical OTTR [address] [place] [address] Erika Truong, RN [facility] [id number] [address] [place] [address] Social History Tobacco Use Types Packs/Day Years [...] as of this encounter Care Teams Supervisor Cooler Service Relationship Specialty Start Date End Date Edgar Fournier MD [address] [place] [address] PCP - General 12/25/20 Enrique Griffith MD [address] [place] [address] Referring Physician Nephrology 01/08/21 documented as of this encounter
--- OUTSIDE RECORDS SUMMARY | 2025-06-10 12:46 | XMS_ITS | Encounter Summary ---
Author Organization [facility] Address [address] [place] [address] Care Team Providers Care Hse Manager Name Role Phone Edgar Fournier MD Primary Care Provider Enrique Griffith MD Unavailable [phone] Encounter Details Date Type Department Care Team (Late st Contact Info) Description 05/31/2017 [facility] OTTR Encounter Historical OTTR [address] [place] [address] Roxi Vazquez [place] [address] [place] [address] Social History Tobacco Use Types Packs/Day Years Used Date Smoking Tobacco: Never Assessed Sex and Gender Information Value Date Recorded Sex Assigned at Not on file Legal Sex Male 6:10 PM EDT Gender Identity Not on file Sexual Orientation Straight 03/02/2021 10 :04 AM EDT documented as of this encounter Miscellaneous Notes * Progress Notes - George November Harish - 05/31/2017 2:02 PM EDT Patient called [...] documented as of this encounter Care Teams Hse Manager Relationship Specialty Start Date End Date Egdar Fournier MD [address] [place] [address] PCP - General 12/25/20 Enrique Griffith MD [address] [place] [address] Referring Physician Nephrology 01/08/21 documented as of this encounter
--- OUTSIDE RECORDS SUMMARY | 2025-06-10 12:46 | XMS_ITS | Encounter Summary ---
Author Organization [facility] Address [address] [place] [address] Care Team Providers Care Small Electric Engine Technician Name Role Phone Edgar Fournier MD Primary Care Provider Enrique Griffith MD Unavailable Encounter Details Date Type Department Care Team (Late st Contact Info) Description 05/31/2017 [facility] OTTR Encounter Historical OTTR [address] [place] [address] Jaren Naqvi MD [address] [place] [address] Social History Tobacco Use Types Packs/Day Years [...] documented as of this encounter Care Teams Small Electric Engine Technician Relationship Specialty Start Date End Date Edgar Fournier MD [address] [place] [address] PCP - General 12/25/20 Enrique Griffith MD [address] [place] [address] Referring Physician Nephrology 01/08/21 documented as of this encounter
--- OUTSIDE RECORDS SUMMARY | 2025-06-10 12:46 | XMS_ITS | Encounter Summary ---
Author Organization [facility] Address [address] [place] [address] Care Team Providers Care Waterside Worker Name Role Phone Edgar Fournier MD Primary Care Provider Enrique Griffith MD Unavailable [phone] Encounter Details Date Type Department Care Team (Late st Contact Info) Description 04/18/2017 [facility] OTTR Encounter Historical OTTR [address] [place] [address] Erika Truong, RN [facility] [id number] [address] [place] [id number] Social History Tobacco Use Types Packs/Day Years [...] - 04/18/2017 1:53 PM EDT orders in [facility] for TIPS revision - sedation form in OTTR all docs documented in this encounter Plan of Treatment Not on file documented as of this encounter Visit Diagnoses Not on filedocumented in this encounter Additional Health Concerns Infection Onset Date Last Indicated Resolved Time COVID-19 Rule-Out 11/08/2021 11/08/2021 11/08/2021 8:06 AM EDT documented as of this encounter Care Teams Waterside Worker Relationship Specialty Start Date End Date Edgar Fournier MD [address] [place] [address] PCP - General 12/25/20 Enrique Griffith MD [address] [place] [address] Referring Physician Nephrology 01/08/21 documented as of this encounter
--- OUTSIDE RECORDS SUMMARY | 2025-06-10 12:46 | XMS_ITS | Encounter Summary ---
Author Organization [facility] Address [address] [place] [address] Care Team Providers Care Framer Name Role Phone Edgar Fournier MD Primary Care Provider Enrique Griffith MD Unavailable [phone] Encounter Details Date Type Department Care Team (Late st Contact Info) Description 06/05/2017 [facility] OTTR Encounter Historical OTTR [address] [place] [address] Bridgett Márquez, RN [facility] LIVER [id number] [address] [place] [address] Social History Tobacco Use Types Packs/Day Years [...] documented as of this encounter Care Teams Framer Relationship Specialty Start Date End Date Edgar Fournier MD [address] [place] [address] PCP - General 12/25/20 Enrique Griffith MD [address] [place] [address] Referring Physician Nephrology 01/08/21 documented as of this encounter
--- OUTSIDE RECORDS SUMMARY | 2025-06-10 12:46 | XMS_ITS | Encounter Summary ---
Author Organization [facility] Address [address] [place] [address] Care Team Providers Care Engineering Patternmaker Name Role Phone Edgar Fournier MD Primary Care Provider Enrique Griffith MD Unavailable [phone] Encounter Details Date Type Department Care Team (Late st Contact Info) Description 06/07/2017 [facility] OTTR Encounter Historical OTTR [address] [place] [address] Bridgett Márquez, RN [id number] [address] [place] [address] Social History Tobacco Use Types Packs/Day Years [...] patient meet with surgeon during follow-up visit [id number]. Msg to AG to add on surgeon visit to 06-30-17 visit. documented in this encounter Plan of Treatment Not on file documented as of this encounter Visit Diagnoses Not on filedocumented in this encounter Additional Health Concerns Infection Onset Date Last Indicated Resolved Time COVID-19 Rule-Out 11/08/2021 11/08/2021 11/08/2021 8:06 AM EDT documented as of this encounter Care Teams Engineering Patternmaker Relationship Specialty Start Date End Date Edgar Fournier MD [address] [place] [address] PCP - General 12/25/20 Enrique Griffith MD [address] [place] [address] Referring Physician Nephrology 01/08/21 documented as of this encounter
--- OUTSIDE RECORDS SUMMARY | 2025-06-10 12:46 | XMS_ITS | Encounter Summary ---
Author Organization [facility] Address [address] [place] [address] Care Team Providers Care Boat Rental Clerk Name Role Phone Edgar Fournier MD Primary Care Provider [phone] Enrique Grifftih MD Unavailable [phone] Encounter Details Date Type Department Care Team (Late st Contact Info) Description 04/28/2017 [facility] OTTR Encounter Historical OTTR [address] [place] [address] Christa Knowles [place] [id number] Social History Tobacco Use Types Packs/Day Years [...] EDT DOS 05/04/17 Op Cpt TIPS Revision 20583, NPR per online tool and automated phone system. Nurse and IR notified via email. documented in this encounter Plan of Treatment Not on file documented as of this encounter Visit Diagnoses Not on filedocumented in this encounter Additional Health Concerns Infection Onset Date Last Indicated Resolved Time COVID-19 Rule-Out 11/08/2021 11/08/2021 11/08/2021 8:06 AM EDT documented as of this encounter Care Teams Boat Rental Clerk Relationship Specialty Start Date End Date Edgar Fournier MD [address] [place] [address] PCP - General 12/25/20 Enrique Griffith MD [address] [place] [address] Referring Physician Nephrology 01/08/21 documented as of this encounter
--- OUTSIDE RECORDS SUMMARY | 2025-06-10 12:46 | XMS_ITS | Encounter Summary ---
Author Organization [facility] Address [address] [place] [address] Care Team Providers Care Model And Mold Maker Name Role Phone Maile Valles RN Unavailable Unavail able Estephania Sharif PharmD Unavailable Christine Edgar Tolentino MD Primary Care Provider [phone] Khari Lema MD Unavailable [phone] Source Comments This information has been disclosed [...] release of HIV test results or diagnoses. [id number] Encounter Details Date Type Department Care Team (Late st Contact Info) Description 05/29/2025 Orders Only [facility] Liver Transplant at [place] [id number] [facility] [address] [place] [address] Maile Valles, JANA S/P liver transplant ([facility]) (Primary Dx); Immunosuppression ([facility]) Social History Tobacco Use Types [...] a group home (including now)? No 11/05/2023 Housing Stability [...] any time in the past 12 m [facility], were you homeless or living in a group home (including now)? No 12/03/2024 Yearly Questionnaire Answer [...] Description 06/12/2025 1:59 PM EDT Hospital Encounter [facility] Cardiac Associate Professor Of Pathology [address] [place] [phone] Cuong Dobson MD [address] [facility] [place] [address] Essential (primary) hypertension; Type 2 diabetes 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, with long-term current use of insulin ([facility]); ESRD (end stage renal disease) on dialysis ([facility]); Pre-transplant evaluation for kidney transplant; High risk surgery, pre-operative cardiovascular examination 06/12/2025 1:59 PM EDT - 06/12/2025 3:00 PM EDT Surgery [facility] Cardiac Associate Professor Of Pathology [address] [place] [address] Cuong Dobson MD [address] [facility] [place] [address] Left and Right Heart Cath Scheduled Orders Name Type Priority Associated Diagnoses Orde r Schedule Hepatic Function Panel Lab Routine S/P liver transplant ([facility]) Immunosuppression (CMS-HCC) as often as monthly if needed for 18 Occurrences starting 05/29/2025 until 11/27/2026 Renal Function Panel w/EGFR Lab Routine S/P liver transplant (CMS-HCC) Immunosuppression (CMS-HCC) as often as monthly if needed for 18 Occurrences starting 05/29/2025 until 11/27/2026 CBC Lab Routine S/P liver transplant (CMS-HCC) Immunosuppression (CMS-HCC) as often as monthly if needed for 18 Occurrences starting 05/29/2025 until 11/27/2026 Differential Lab Routine S/P liver transplant (CMS-HCC) Immunosuppression (CMS-HCC) as often as monthly if needed for 18 Occurrences starting 05/29/2025 until 11/27/2026 Cyclosporine level Lab Routine S/P liver transplant (CMS-HCC) Immunosuppression (CMS-HCC) as often as monthly if needed for 18 Occurrences starting 05/29/2025 until 11/27/2026 documented as of this encounter Visit Diagnoses Diagnosis S/P liver transplant (CMS-HCC)- Primary Immunosuppression (CMS-HCC) Essential (primary) hypertension Unspecified essential hypertension Type 2 diabetes 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, with long-term current use of insulin (CMS-HCC) ESRD (end stage renal disease) on dialysis (CMS-HCC) End stage renal disease Pre-transplant evaluation for kidney transplant High risk surgery, pre-operative cardiovascular examination Pre-operative cardiovascular examination Essential (primary) hypertension Unspecified essential hypertension Type 2 diabetes 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, with long-term current use of insulin (CMS-HCC) ESRD (end stage renal disease) on dialysis (CMS-HCC) End stage renal disease Pre-transplant evaluation for kidney transplant High risk surgery, pre-operative cardiovascular examination Pre-operative cardiovascular examination documented in this encounter Additional Health Concerns Assessment Noted Time PHQ-9 Depression Total Score: 0 12/06/19 18 3:00 PM EDT documented as of this encounter Care Teams Model And Mold Maker Relationship Specialty Start Date End Date [place] [address] PCP - General 12/22/21 Maile Valles, JANA Txp Post Coordinator Transplant Hepatology 11/07/17 Estephania Sharif, PharmD Pharmacist Pharmacist 11/11/19 Khari Lema MD [address] [facility] [address] [place] [address] Txp Industrial Electrical Engineer Transplant Hepatology 05/29/25 documented as of this encounter
--- OUTSIDE RECORDS SUMMARY | 2025-06-10 12:46 | XMS_ITS | Encounter Summary ---
Author Organization [facility] Address [address] [place] [address] Care Team Providers Care Social Worker Clinical Name Role Phone Edgar Fournier MD Primary Care Provider Enrique Griffith MD Unavailable [phone] Encounter Details Date Type Department Care Team (Late st Contact Info) Description 06/05/2017 [facility] OTTR Encounter Historical OTTR [address] [place] [address] Bridgett Márquez, RN [facility] [id number] [address] [place] [phone] Social History Tobacco Use Types Packs/Day Years [...] as of this encounter Care Teams Social Worker Clinical Relationship Specialty Start Date End Date Edgar Fournier MD [address] [place] [address] PCP - General 12/25/20 Enrique Griffith MD [address] [place] [address] Referring Physician Nephrology 01/08/21 documented as of this encounter
--- OUTSIDE RECORDS SUMMARY | 2025-06-10 12:46 | XMS_ITS | Encounter Summary ---
Author Organization [facility] Address [address] [place] [address] Care Team Providers Care Active Directory Administrator Name Role Phone Edgar Fournier MD Primary Care Provider Enrique Griffith MD Unavailable [phone] Encounter Details Date Type Department Care Team (Late st Contact Info) Description 06/21/2017 [facility] OTTR Encounter Historical OTTR [address] [place] [address] Vera Rosales [place] [phone] Social History Tobacco Use Types Packs/Day Years [...] Mr Stauffer request. Received verbal confirmation from [facility] that records were received. documented in this encounter Plan of Treatment Not on file documented as of this encounter Visit Diagnoses Not on filedocumented in this encounter Additional Health Concerns Infection Onset Date Last Indicated Resolved Time COVID-19 Rule-Out 11/08/2021 11/08/2021 11/08/2021 8:06 AM EDT documented as of this encounter Care Teams Active Directory Administrator Relationship Specialty Start Date End Date Edgar Fournier MD [address] [place] [address] PCP - General 12/25/20 Enrique Griffith MD [address] [place] [address] Referring Physician Nephrology 01/08/21 documented as of this encounter
--- OUTSIDE RECORDS SUMMARY | 2025-06-10 12:46 | XMS_ITS | Encounter Summary ---
Author Organization [facility] Address [address] [place] [address] Care Team Providers Care Oil Tank Car Cleaner Name Role Phone Edgar Fournier MD Primary Care Provider [phone] Enrique Griffith MD Unavailable [phone] Encounter Details Date Type Department Care Team (Late st Contact Info) Description 04/19/2017 [facility] OTTR Encounter Historical OTTR [address] [place] [address] Roxi Vazquez [facility] [address] [place] [address] Social History Tobacco Use Types Packs/Day Years [...] documented as of this encounter Care Teams Oil Tank Car Cleaner Relationship Specialty Start Date End Date Edgar Fournier MD [address] [place] [address] PCP - General 12/25/20 Enrique Griffith MD [address] [place] [address] Referring Physician Nephrology 01/08/21 documented as of this encounter
--- OUTSIDE RECORDS SUMMARY | 2025-06-10 12:46 | XMS_ITS | Encounter Summary ---
Author Organization [facility] Address [address] [place] [address] Care Team Providers Care Machine Filler Name Role Phone Edgar Fournier MD Primary Care Provider Enrique Griffith MD Unavailable [phone] Encounter Details Date Type Department Care Team (Late st Contact Info) Description 05/02/2017 [facility] OTTR Encounter Historical OTTR [address] [place] [address] Carla Hammonds [place] [phone] Social History Tobacco Use Types Packs/Day Years [...] as of this encounter Care Teams Machine Filler Relationship Specialty Start Date End Date Edgar Fournier MD [address] [place] [address] PCP - General 12/25/20 Enrique Griffith MD [address] [place] [address] Referring Physician Nephrology 01/08/21 documented as of this encounter
--- OUTSIDE RECORDS SUMMARY | 2025-06-10 12:46 | XMS_ITS | Encounter Summary ---
Author Organization [facility] Address [address] [place] [address] Care Team Providers Care Business Banking Officer Name Role Phone Edgar Fournier MD Primary Care Provider [phone] Enrique Griffith MD Unavailable [phone] Encounter Details Date Type Department Care Team (Late st Contact Info) Description 04/14/2017 [facility] OTTR Encounter Historical OTTR [address] [place] [address] Fabiana Clark MD Social History Tobacco Use [...] as of this encounter Care Teams Business Banking Officer Relationship Specialty Start Date End Date Edgar Fournier MD [address] [place] [address] PCP - General 12/25/20 Enrique Grififth MD [address] [place] [address] Referring Physician Nephrology 01/08/21 documented as of this encounter
--- OUTSIDE RECORDS SUMMARY | 2025-06-10 12:46 | XMS_ITS | Encounter Summary ---
Author Organization [facility] Address [address] [place] [address] Care Team Providers Care Personnel Quality Assurance Auditor Name Role Phone Maile Valles RN Unavailable Unavail able Jack Ordoñez MD Unavailable [phone] Estephania Sharif PharmD Unavailable Christine Edgar Tolentino MD Primary Care Provider [phone] Source Comments This information has been disclosed [...] release of HIV test results or diagnoses. [id number] Encounter Details Date Type Department Care Team (Late st Contact Info) Description 05/28/2025 Telephone [facility] Liver Transplant at [place] [phone] [facility] [address] [place] [address] Bridgett Ansari MA Social History Tobacco Use Types Packs/Day Years Used Date Smoking Tobacco: Never Smokeless Tobacco: Never Alcohol Use Standard Drinks/Week Comments Never 0 (1 standard drink = 0.6 oz pur e alcohol) Utilities Answer Date Recorded In the past 12 months has th e electric, gas, oil, or water [employer] threatened to shut off services in your [...] health care facility (including now)? No 11/05/2023 Housing Stability Vital Sign Answer Gilbert e Recorded In the last 12 months, was t here a time when you were not able to pay the mortgage or rent on time? No 12/03/2024 In the past 12 months, how m any times have you moved where you were living? 0 12/03/2024 At any time in the past 12 m [facility], were you homeless or living in a [place] health care facility (including now)? No 12/03/2024 Yearly Questionnaire Answer [...] as of this encounter Progress Notes * Bridgett Ansari MA - 05/28/2025 10:36 AM EDT Patient called and requested that lab orders be sent to the lab, he is going to get labs drawn after his MRI today. Labs unsuccessfully sent, will try to refax orders. Lab orders resent manually because it is not going through with Epic fax. Fax went through successfully. documented in this encounter Plan of Treatment Upcoming Encounters Date Type Department Care Team (Latest Contact Info) Description 06/12/2025 1:59 PM EDT Hospital Encounter [facility] Cardiac Solder Making Supervisor [address] [place] [address] Cuong Dobson MD [address] [place] [address] [place] [address] Essential (primary) hypertension; Type 2 diabetes 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, with long-term current use of insulin ([facility]); ESRD (end stage renal disease) on dialysis ([facility]); Pre-transplant evaluation for kidney transplant; High risk surgery, pre-operative cardiovascular examination 06/12/2025 1:59 PM EDT - 06/12/2025 3:00 PM EDT Surgery [facility] Cardiac Solder Making Supervisor [address] [place] [address] Cuong Dobson MD [address] [facility] [place] [address] Left and Right Heart Cath documented as of this encounter Visit Diagnoses Not on filedocumented in this encounter Additional Health Concerns Assessment Noted Time PHQ-9 Depression Total Score: 0 12/06/19 18 3:00 PM EDT documented as of this encounter Care Teams Personnel Quality Assurance Auditor Relationship Specialty Start Date End Date Edgar Fournier MD [address] [place] [address] [place] [address] PCP - General 12/22/21 Maile Valles, RN Txp Post Coordinator Transplant Hepatology 11/07/17 Jack Ordoñez MD [address] [place] [address] Consulting Physician Transplant Hepatology 01/05/18 Estephania Sharif, DarrianD Pharmacist Pharmacist 11/11/19 documented as of this encounter
--- OUTSIDE RECORDS SUMMARY | 2025-06-10 12:46 | XMS_ITS | Encounter Summary ---
Author Organization [facility] Address [address] [place] [address] Care Team Providers Care Army Manager Name Role Phone Edgar Fournier MD Primary Care Provider Enrique Griffith MD Unavailable [phone] Encounter Details Date Type Department Care Team (Late st Contact Info) Description 06/02/2017 [facility] OTTR Encounter Historical OTTR [address] [place] [address] Roxi Vazquez [facility] [address] [place] [address] Social History Tobacco Use Types Packs/Day Years [...] documented as of this encounter Care Teams Army Manager Relationship Specialty Start Date End Date Edgar Fournier MD [address] [place] [address] PCP - General 12/25/20 Enrique Grifftih MD [address] [place] [address] Referring Physician Nephrology 01/08/21 documented as of this encounter
--- OUTSIDE RECORDS SUMMARY | 2025-06-10 12:46 | XMS_ITS | Encounter Summary ---
Author Organization [facility] Address [address] [place] [address] Care Team Providers Care Crop Setting Out Machine Operator Name Role Phone Edgar Fournier MD Primary Care Provider [phone] Enrique Griffith MD Unavailable [phone] Encounter Details Date Type Department Care Team (Late st Contact Info) Description 05/08/2017 [facility] OTTR Encounter Historical OTTR [address] [place] [address] Carla Hammonds [place] [phone] Social History Tobacco Use Types Packs/Day Years [...] documented as of this encounter Care Teams Crop Setting Out Machine Operator Relationship Specialty Start Date End Date Edgar Fournier MD [address] [place] [address] PCP - General 12/25/20 Enriqeu Griffith MD [address] [place] [phone] Referring Physician Nephrology 01/08/21 documented as of this encounter
--- OUTSIDE RECORDS SUMMARY | 2025-06-10 12:46 | XMS_ITS | Encounter Summary ---
Author Organization [facility] Address [address] [place] [address] Care Team Providers Care Marker Maker Name Role Phone Maile Valles RN Unavailable Unavail able Estephania Sharif PharmD Unavailable Christine Edgar Tolentino MD Primary Care Provider [phone] Khari Lema MD Unavailable [phone] Source Comments This information has been disclosed [...] release of HIV test results or diagnoses. [id number] Encounter Details Date Type Department Care Team (Late st Contact Info) Description 06/06/2025 Telephone [facility] Kidney Transplant at [address] [address] Stan Moise, JANA Social History Tobacco Use Types Packs/Day Years Used Date Smoking Tobacco: Never Smokeless Tobacco: Never Alcohol Use Standard Drinks/Week Comments Never 0 (1 standard drink = 0.6 oz pur e alcohol) Utilities Answer Date Recorded In the past 12 months has th e [employer], [employer], oil, or water [employer] threatened to shut off services in your [...] in a fpc (including now)? No 11/05/2023 Housing Stability Vital [...] were you homeless or living in a fpc (including now)? No 12/03/2024 Yearly Questionnaire Answer [...] as of this encounter Progress Notes * Stan Moise RN - 06/06/2025 3:39 PM EDT Return call made Mr. Stauffer. Heart cath scheduled 06/12/25. documented in this encounter Plan of Treatment Upcoming Encounters Date Type Department Care Team (Latest Contact Info) Description 06/12/2025 1:59 PM EDT Hospital Encounter [facility] Cardiac Clutch Rebuilder [address] [place] [phone] Cuong Dobson MD [address] [place] [address] [place] [address] Essential (primary) hypertension; Type 2 diabetes 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, with long-term current use of insulin ([facility]); ESRD (end stage renal disease) on dialysis ([facility]); Pre-transplant evaluation for kidney transplant; High risk surgery, pre-operative cardiovascular examination 06/12/2025 1:59 PM EDT - 06/12/2025 3:00 PM EDT Surgery [facility] Cardiac Clutch Rebuilder [address] [place] [address] Cuong Dobson MD [address] [facility] [place] [address] Left and Right Heart Cath documented as of this encounter Visit Diagnoses Not on filedocumented in this encounter Additional Health Concerns Assessment Noted Time PHQ-9 Depression Total Score: 0 12/06/19 18 3:00 PM EDT documented as of this encounter Care Teams Marker Maker Relationship Specialty Start Date End Date Edgar Fournier MD [address] [place] [address] PCP - General 12/22/21 Maile Valles, JANA Txp Post Coordinator Transplant Hepatology 11/07/17 Estephania Sharif, DarrianD Pharmacist Pharmacist 11/11/19 Khari Lema MD [address] [facility] [address] [place] [address] Txp Underground Repairer Transplant Hepatology 05/29/25 documented as of this encounter
--- OUTSIDE RECORDS SUMMARY | 2025-06-10 12:46 | XMS_ITS | Encounter Summary ---
Author Organization [facility] Address [address] [place] [address] Care Team Providers Care Cathode Ray Tube Salvage Processor Name Role Phone Edgar Fournier MD Primary Care Provider [phone] Enrique Griffith MD Unavailable Encounter Details Date Type Department Care Team (Late st Contact Info) Description 04/14/2017 [facility] OTTR Encounter Historical OTTR [address] [place] [address] Shaar Huff, MOVIE STAR, DNP [address] [facility] [address] [place] [address] Social History Tobacco Use Types Packs/Day Years [...] documented as of this encounter Care Teams Cathode Ray Tube Salvage Processor Relationship Specialty Start Date End Date Edgar Fournier MD [address] [place] [address] PCP - General 12/25/20 Enrique Griffith MD [address] [place] [address] Referring Physician Nephrology 01/08/21 documented as of this encounter
--- OUTSIDE RECORDS SUMMARY | 2025-06-10 12:46 | XMS_ITS | Encounter Summary ---
Author Organization [facility] Address [address] [place] [address] Care Team Providers Care Squadron Worker Name Role Phone Edgar Fournier MD Primary Care Provider Enrique Griffith MD Unavailable [phone] Encounter Details Date Type Department Care Team (Late st Contact Info) Description 05/10/2017 Legacy OTTR Encounter Historical OTTR [address] [place] [address] Christa Knowles [place] [phone] Social History Tobacco Use Types Packs/Day Years [...] Cpt US Abd Doppler w/ [employer] 19720, 17017, both NPR per [place] online pre-cert tool and automated system. Nurse, APM and Rad updated. documented in this encounter Plan of Treatment Not on file documented as of this encounter Visit Diagnoses Not on filedocumented in this encounter Additional Health Concerns Infection Onset Date Last Indicated Resolved Time COVID-19 Rule-Out 11/08/2021 11/08/2021 11/08/2021 8:06 AM EDT documented as of this encounter Care Teams Squadron Worker Relationship Specialty Start Date End Date Edgar Fournier MD [address] [place] [address] PCP - General 12/25/20 Enrique Griffith MD [address] [place] [phone] Referring Physician Nephrology 01/08/21 documented as of this encounter
--- OUTSIDE RECORDS SUMMARY | 2025-06-10 12:47 | XMS_ITS | Encounter Summary ---
Author Organization [facility] Address [address] [place] [address] Care Team Providers Care Collection Systems Technician Name Role Phone Edgar Fournier MD Primary Care Provider [phone] Enrique Griffith MD Unavailable [phone] Encounter Details Date Type Department Care Team (Late st Contact Info) Description 02/22/2017 Legacy OTTR Encounter Historical OTTR [address] [place] [address] Bridgett Márquez, RN [facility] [id number] [address] [place] [phone] Social History Tobacco Use Types Packs/Day Years [...] to . Phd patient- no answer. Phd [facility]- no record of patient. documented in this [...] documented as of this encounter Care Teams Collection Systems Technician Relationship Specialty Start Date End Date Edgar Fournier MD [address] [place] [address] PCP - General 12/25/20 Enrique Griffith MD [address] [place] [phone] Referring Physician Nephrology 01/08/21 documented as of this encounter
--- OUTSIDE RECORDS SUMMARY | 2025-06-10 12:47 | XMS_ITS | Encounter Summary ---
Author Organization [facility] Address [address] [place] [address] Care Team Providers Care Transplant Nurse Practitioner Name Role Phone Edgar Fournier MD Primary Care Provider Enrique Griffith MD Unavailable Encounter Details Date Type Department Care Team (Late st Contact Info) Description 04/04/2017 Legacy OTTR Encounter Historical OTTR [address] [place] [address] Kathya Hassan, PA [address] [facility] [address] [place] [address] Social History Tobacco Use Types Packs/Day Years [...] for transplant. He is also listed in [facility]. MELD 18 (INR 1.4, Cr 1.21, Na [...] documented as of this encounter Care Teams Transplant Nurse Practitioner Relationship Specialty Start Date End Date Edgar Fournier MD [address] [place] [address] PCP - General 12/25/20 Enrique Griffith MD [address] [place] [phone] Referring Physician Nephrology 01/08/21 documented as of this encounter
--- OUTSIDE RECORDS SUMMARY | 2025-06-10 12:47 | XMS_ITS | Encounter Summary ---
Author Organization [facility] Address [address] [place] [address] Care Team Providers Care Bioprocessing Manufacturing Technician Name Role Phone Edgar Fournier MD Primary Care Provider Enrique Griffith MD Unavailable [phone] Encounter Details Date Type Department Care Team (Late st Contact Info) Description 02/08/2017 Legacy OTTR Encounter Historical OTTR [address] [place] [address] Bridgett Márquez, RN [facility] LIVER [id number] [address] [place] [address] Social History Tobacco Use Types Packs/Day Years [...] is still weak. Will obtain records from [facility]. He adv he was declined at for Txp, due to insurance. documented in this encounter Plan of Treatment Not on file documented as of this encounter Visit Diagnoses Not on filedocumented in this encounter Additional Health Concerns Infection Onset Date Last Indicated Resolved Time COVID-19 Rule-Out 11/08/2021 11/08/2021 11/08/2021 8:06 AM EDT documented as of this encounter Care Teams Bioprocessing Manufacturing Technician Relationship Specialty Start Date End Date Edgar Fournier MD [address] [place] [address] PCP - General 12/25/20 Enrique Griffith MD [address] [place] [phone] Referring Physician Nephrology 01/08/21 documented as of this encounter
--- OUTSIDE RECORDS SUMMARY | 2025-06-10 12:47 | XMS_ITS | Encounter Summary ---
Author Organization [facility] Address [address] [place] [address] Care Team Providers Care Shipper Name Role Phone Edgar Fournier MD Primary Care Provider [phone] Enrique Griffith MD Unavailable [phone] Encounter Details Date Type Department Care Team (Late st Contact Info) Description 01/26/2017 Legacy OTTR Encounter Historical OTTR [address] [place] [address] Christa Knowles [place] [phone] Social History Tobacco Use Types Packs/Day Years [...] PM EDT DOS 02/28/17 OP Cpt Colonoscopy 04863, Video Capsule EGD 97915, pre-cert request faxed to Michelle graves/ clinical and saved to all docs. Nurse updated. documented in this encounter Plan of Treatment Not on file documented as of this encounter Visit Diagnoses Not on filedocumented in this encounter Additional Health Concerns Infection Onset Date Last Indicated Resolved Time COVID-19 Rule-Out 11/08/2021 11/08/2021 11/08/2021 8:06 AM EDT documented as of this encounter Care Teams Shipper Relationship Specialty Start Date End Date Edgar Fournier MD [address] [place] [address] PCP - General 12/25/20 Enrique Griffith MD [address] [place] [phone] Referring Physician Nephrology 01/08/21 documented as of this encounter
--- OUTSIDE RECORDS SUMMARY | 2025-06-10 12:47 | XMS_ITS | Encounter Summary ---
Author Organization [facility] Address [address] [place] [address] Care Team Providers Care Help Desk Internship Name Role Phone Edgar Fournier MD Primary Care Provider Enrique Griffith MD Unavailable [phone] Encounter Details Date Type Department Care Team (Late st Contact Info) Description 01/17/2017 [facility] OTTR Encounter Historical OTTR [address] [place] [address] Bridgett Márquez, RN [facility] [id number] [address] [place] [address] Social History Tobacco Use Types Packs/Day Years [...] like testing results faxed to [facility] at [phone]. Will do same. documented in this encounter [...] of this encounter Care Teams Help Desk Internship Relationship Specialty Start Date End Date Edgar Fournier MD [address] [place] [address] PCP - General 12/25/20 Enrique Griffith MD [address] [place] [phone] Referring Physician Nephrology 01/08/21 documented as of this encounter
--- OUTSIDE RECORDS SUMMARY | 2025-06-10 12:47 | XMS_ITS | Encounter Summary ---
Author Organization [facility] Address [address] [place] [address] Care Team Providers Care Regional Sales Manager Name Role Phone Edgar Fournier MD Primary Care Provider [phone] Enrique Griffith MD Unavailable [phone] Encounter Details Date Type Department Care Team (Late st Contact Info) Description 01/11/2017 Legacy OTTR Encounter Historical OTTR [address] [place] [address] Bridgett Márquez, RN [facility] LIVER [id number] [address] [place] [address] Social History Tobacco Use Types Packs/Day Years [...] is going to have GP find local developer relations manager. Will give rx for diabetic shoes when he is in clinic next week. documented in this encounter Plan of Treatment Not on file documented as of this encounter Visit Diagnoses Not on filedocumented in this encounter Additional Health Concerns Infection Onset Date Last Indicated Resolved Time COVID-19 Rule-Out 11/08/2021 11/08/2021 11/08/2021 8:06 AM EDT documented as of this encounter Care Teams Regional Sales Manager Relationship Specialty Start Date End Date Edgar Fournier MD [address] [place] [address] PCP - General 12/25/20 Enrique Griffith MD [address] [place] [address] Referring Physician Nephrology 01/08/21 documented as of this encounter
--- OUTSIDE RECORDS SUMMARY | 2025-06-10 12:47 | XMS_ITS | Encounter Summary ---
Author Organization [facility] Address [address] [place] [address] Care Team Providers Care Process Coordinator Name Role Phone Edgar Fournier MD Primary Care Provider Enrique Griffith MD Unavailable Encounter Details Date Type Department Care Team (Late st Contact Info) Description 04/13/2017 Legacy OTTR Encounter Historical OTTR [address] [place] [address] Shara Huff, CLIENT SUPPORT ADMINISTRATOR, DNP [address] [facility] [address] [place] [address] Social History Tobacco Use Types Packs/Day Years [...] as of this encounter Care Teams Process Coordinator Relationship Specialty Start Date End Date Edgar Fournier MD [address] [place] [address] PCP - General 12/25/20 Enrique Griffith MD [address] [place] [address] Referring Physician Nephrology 01/08/21 documented as of this encounter
--- OUTSIDE RECORDS SUMMARY | 2025-06-10 12:47 | XMS_ITS | Encounter Summary ---
Author Organization [facility] Address [address] [place] [address] Care Team Providers Care Railroad Signal Technician Name Role Phone Edgar Fournier MD Primary Care Provider Enrique Griffith MD Unavailable [phone] Encounter Details Date Type Department Care Team (Late st Contact Info) Description 04/11/2017 Legacy OTTR Encounter Historical OTTR [address] [place] [address] Kathya Hassan PA [address] [facility] [address] [place] [address] Social History Tobacco Use Types [...] documented as of this encounter Care Teams Railroad Signal Technician Relationship Specialty Start Date End Date Edgar Fournier MD [address] [place] [address] PCP - General 12/25/20 Enrique Griffith MD [address] [place] [phone] Referring Physician Nephrology 01/08/21 documented as of this encounter
--- OUTSIDE RECORDS SUMMARY | 2025-06-10 12:47 | XMS_ITS | Encounter Summary ---
Author Organization [facility] Address [address] [place] [address] Care Team Providers Care Clothing Sales Assistant Name Role Phone Edgar Fournier MD Primary Care Provider [phone] Enrique Griffith MD Unavailable [phone] Encounter Details Date Type Department Care Team (Late st Contact Info) Description 03/23/2017 Legacy OTTR Encounter Historical OTTR [address] [place] [address] Bridgett Márquez, RN [facility] LIVER [id number] [address] [place] [address] Social History Tobacco Use Types Packs/Day Years [...] EXTERNAL LAB - 03/23/2017 1:43 PM EDT [facility] us Historical Provider LAB BLOOD ORDERABLES Final R esult EXTERNAL LAB documented in this encounter Visit Diagnoses Not on filedocumented in this encounter Additional Health Concerns Infection Onset Date Last Indicated Resolved Time COVID-19 Rule-Out 11/08/2021 11/08/2021 11/08/2021 8:06 AM EDT documented as of this encounter Care Teams Clothing Sales Assistant Relationship Specialty Start Date End Date Edgar Fournier MD [address] [place] [address], [place] [address] PCP - General 12/25/20 Enrique Griffith MD [address] [place] [address] Referring Physician Nephrology 01/08/21 documented as of this encounter
--- OUTSIDE RECORDS SUMMARY | 2025-06-10 12:47 | XMS_ITS | Encounter Summary ---
Author Organization [facility] Address [address] [place] [address] Care Team Providers Care Operations Director Name Role Phone Edgar Fournier MD Primary Care Provider Enrique Griffith MD Unavailable [phone] Encounter Details Date Type Department Care Team (Late st Contact Info) Description 05/19/2017 Legacy OTTR Encounter Historical OTTR [address] [place] [address] Bridgett Márquez, RN [facility] LIVER [id number] [address] [place] [address] Social History Tobacco Use Types Packs/Day Years [...] EXTERNAL LAB - 05/19/2017 7:26 AM EDT [facility] us Historical Provider LAB BLOOD ORDERABLES Final R esult EXTERNAL LAB documented in this encounter Visit Diagnoses Not on filedocumented in this encounter Additional Health Concerns Infection Onset Date Last Indicated Resolved Time COVID-19 Rule-Out 11/08/2021 11/08/2021 11/08/2021 8:06 AM EDT documented as of this encounter Care Teams Operations Director Relationship Specialty Start Date End Date Edgar Fournier MD [address] [place] [address] PCP - General 12/25/20 Enrique Griffith MD [address] [place] [address] Referring Physician Nephrology 01/08/21 documented as of this encounter
--- OUTSIDE RECORDS SUMMARY | 2025-06-10 12:47 | XMS_ITS | Encounter Summary ---
Author Organization [facility] Address [address] [place] [address] Care Team Providers Care Railway Yard Assistant Name Role Phone Edgar Fournier MD Primary Care Provider [phone] Enrique Grfifith MD Unavailable [phone] Encounter Details Date Type Department Care Team (Late st Contact Info) Description 03/28/2017 Legacy OTTR Encounter Historical OTTR [address] [place] [address] Jack Ansari Social History Tobacco Use Types [...] documented as of this encounter Care Teams Railway Yard Assistant Relationship Specialty Start Date End Date Edgar Fournier MD [address] [place] [address] PCP - General 12/25/20 Enrique Griffith MD [address] [place] [address] Referring Physician Nephrology 01/08/21 documented as of this encounter
--- OUTSIDE RECORDS SUMMARY | 2025-06-10 12:47 | XMS_ITS | Encounter Summary ---
Author Organization [facility] Address [address] [place] [address] Care Team Providers Care Manager Sound Name Role Phone Edgar Fournier MD Primary Care Provider [phone] Enrique Griffith MD Unavailable [phone] Encounter Details Date Type Department Care Team (Late st Contact Info) Description 02/28/2017 Legacy OTTR Encounter Historical OTTR [address] [place] [address] Bridgett Márquez, RN [facility] [id number] [address] [place] [phone] Social History Tobacco Use Types Packs/Day Years [...] as of this encounter Care Teams Manager Sound Relationship Specialty Start Date End Date Edgar Fournier MD [address] [place] [address] PCP - General 12/25/20 Enrique Griffith MD [address] [place] [address] Referring Physician Nephrology 01/08/21 documented as of this encounter
--- OUTSIDE RECORDS SUMMARY | 2025-06-10 12:47 | XMS_ITS | Encounter Summary ---
Author Organization [facility] Address [address] [place] [address] Care Team Providers Care Supervisor Pumping Station Name Role Phone Edgar Fournier MD Primary Care Provider [phone] Enrique Griffith MD Unavailable [phone] Encounter Details Date Type Department Care Team (Late st Contact Info) Description 05/30/2017 Legacy OTTR Encounter Historical OTTR [address] [place] [address] Carla Hammonds [place] [phone] Social History Tobacco Use Types Packs/Day Years [...] as of this encounter Care Teams Supervisor Pumping Station Relationship Specialty Start Date End Date Edgar Fournier MD [address] [place] [address] PCP - General 12/25/20 Enrique Griffith MD [address] [place] [phone] Referring Physician Nephrology 01/08/21 documented as of this encounter
--- OUTSIDE RECORDS SUMMARY | 2025-06-10 12:47 | XMS_ITS | Encounter Summary ---
Author Organization [facility] Address [address] [place] [address] Care Team Providers Care Room Worker Name Role Phone Edgar Fournier MD Primary Care Provider Enrique Grififth MD Unavailable [phone] Encounter Details Date Type Department Care Team (Late st Contact Info) Description 03/03/2017 Legacy OTTR Encounter Historical OTTR [address] [place] [address] Bridgett Márquez, RN [facility] [id number] [address] [place] [phone] Social History Tobacco Use Types Packs/Day Years [...] He adv he was in ED at [facility] last 2 nights with abdominal pain. [...] documented as of this encounter Care Teams Room Worker Relationship Specialty Start Date End Date Edgar Fournier MD [address] [place] [address] PCP - General 12/25/20 Enrique Griffith MD [address] [place] [phone] Referring Physician Nephrology 01/08/21 documented as of this encounter
--- OUTSIDE RECORDS SUMMARY | 2025-06-10 12:47 | XMS_ITS | Encounter Summary ---
Author Organization [facility] Address [address] [place] [address] Care Team Providers Care Termite Control Service Representative Name Role Phone Edgar Fournier MD Primary Care Provider [phone] Enrique Griffith MD Unavailable [phone] Encounter Details Date Type Department Care Team (Late st Contact Info) Description 03/10/2017 Legacy OTTR Encounter Historical OTTR [address] [place] [address] Bridgett Márquez, RN [facility] [id number] [address] [place] [address] Social History Tobacco Use Types Packs/Day Years [...] for annual cardiac testing . Orders [facility], msg to AG to schedule. documented in this encounter Plan of Treatment Not on file documented as of this encounter Visit Diagnoses Not on filedocumented in this encounter Additional Health Concerns Infection Onset Date Last Indicated Resolved Time COVID-19 Rule-Out 11/08/2021 11/08/2021 11/08/2021 8:06 AM EDT documented as of this encounter Care Teams Termite Control Service Representative Relationship Specialty Start Date End Date Edgar Fournier MD [address] [place] [address] PCP - General 12/25/20 Enrique Griffith MD [address] [place] [phone] Referring Physician Nephrology 01/08/21 documented as of this encounter
--- OUTSIDE RECORDS SUMMARY | 2025-06-10 12:47 | XMS_ITS | Encounter Summary ---
Author Organization [facility] Address [address] [place] [address] Care Team Providers Care Machine Washer Name Role Phone Edgar Fournier MD Primary Care Provider [phone] Enrique Griffith MD Unavailable [phone] Encounter Details Date Type Department Care Team (Late st Contact Info) Description 01/06/2017 Legacy OTTR Encounter Historical OTTR [address] [place] [address] Sandrita Ferguson, BANDER OPERATOR [address] [facility] [address] [place] [address] Social History Tobacco Use Types Packs/Day Years [...] as of this encounter Care Teams Machine Washer Relationship Specialty Start Date End Date Edgar Fournier MD [address] [place] [address] PCP - General 12/25/20 Enriqeu Griffith MD [address] [place] [phone] Referring Physician Nephrology 01/08/21 documented as of this encounter
--- OUTSIDE RECORDS SUMMARY | 2025-06-10 12:47 | XMS_ITS | Encounter Summary ---
Author Organization [facility] Address [address] [place] [address] Care Team Providers Care Cancer Registrar Name Role Phone Edgar Fournier MD Primary Care Provider Enrique Griffith MD Unavailable [phone] Encounter Details Date Type Department Care Team (Late st Contact Info) Description 02/01/2017 Legacy OTTR Encounter Historical OTTR [address] [place] [address] Christa Knowles [place] [phone] Social History Tobacco Use Types Packs/Day Years [...] PM EDT DOS 02/28/17 OP Cpt Colonoscopy 48008, NPR. Video Capsule EGD 64862 approved auth# [id number], expires 04/28/17 per November M. at [facility]. Nurse and Endo notified. documented in this [...] EXTERNAL LAB - 02/01/2017 8:40 PM EDT [facility] us Historical Provider LAB BLOOD ORDERABLES Final R esult EXTERNAL LAB documented in this encounter Visit Diagnoses Not on filedocumented in this encounter Additional Health Concerns Infection Onset Date Last Indicated Resolved Time COVID-19 Rule-Out 11/08/2021 11/08/2021 11/08/2021 8:06 AM EDT documented as of this encounter Care Teams Cancer Registrar Relationship Specialty Start Date End Date Edgar Fournier MD [address] [place] [address] PCP - General 12/25/20 Enrique Griffith MD [address] [place] [address] Referring Physician Nephrology 01/08/21 documented as of this encounter
--- OUTSIDE RECORDS SUMMARY | 2025-06-10 12:47 | XMS_ITS | Encounter Summary ---
Author Organization [facility] Address [address] [place] [address] Care Team Providers Care Ballet Company Artistic Director Name Role Phone Edgar Fournier MD Primary Care Provider Enrique Griffith MD Unavailable [phone] Encounter Details Date Type Department Care Team (Late st Contact Info) Description 01/27/2017 Legacy OTTR Encounter Historical OTTR [address] [place] [address] Bridgett Márquez, RN [facility] LIVER [id number] [address] [place] [address] Social History Tobacco Use Types Packs/Day Years [...] documented as of this encounter Care Teams Ballet Company Artistic Director Relationship Specialty Start Date End Date Edgar Fournier MD [address] [place] [address] PCP - General 12/25/20 Enrique Griffith MD [address] [place] [address] Referring Physician Nephrology 01/08/21 documented as of this encounter
--- OUTSIDE RECORDS SUMMARY | 2025-06-10 12:47 | XMS_ITS | Encounter Summary ---
Author Organization [facility] Address [address] [place] [address] Care Team Providers Care Earring Maker Name Role Phone Edgar Fournier MD Primary Care Provider Enrique Griffith MD Unavailable [phone] Encounter Details Date Type Department Care Team (Late st Contact Info) Description 03/21/2017 Legacy OTTR Encounter Historical OTTR [address] [place] [address] Roxi Vazquez [facility] [address] [place] [address] Social History Tobacco Use Types Packs/Day Years [...] documented as of this encounter Care Teams Earring Maker Relationship Specialty Start Date End Date Edgar Fournier MD [address] [place] [address] PCP - General 12/25/20 Enrique Griffith MD [address] [place] [address] Referring Physician Nephrology 01/08/21 documented as of this encounter
--- OUTSIDE RECORDS SUMMARY | 2025-06-10 12:47 | XMS_ITS | Encounter Summary ---
Author Organization [facility] Address [address] [place] [address] Care Team Providers Care Field Court Researcher Name Role Phone Edgar Fournier MD Primary Care Provider Enrique Griffith MD Unavailable [phone] Encounter Details Date Type Department Care Team (Late st Contact Info) Description 05/30/2017 Legacy OTTR Encounter Historical OTTR [address] [place] [address] Roxi Vazquez [facility] [address] [place] [address] Social History Tobacco Use Types Packs/Day Years [...] as of this encounter Care Teams Field Court Researcher Relationship Specialty Start Date End Date Edgar Fournier MD [address] [place] [address] PCP - General 12/25/20 Enrique Griffith MD [address] [place] [phone] Referring Physician Nephrology 01/08/21 documented as of this encounter
--- OUTSIDE RECORDS SUMMARY | 2025-06-10 12:47 | XMS_ITS | Encounter Summary ---
Author Organization [facility] Address [address] [id number] Care Team Providers Care Referral Management Liaison Name Role Phone Edgar Fournier MD Primary Care Provider Enrique Griffith MD Unavailable [phone] Encounter Details Date Type Department Care Team (Late st Contact Info) Description 04/13/2017 [facility] OTTR Encounter Historical OTTR [address] [place] [address] Erika Truong, RN [facility] [id number] [address] [id number] Social History Tobacco Use Types Packs/Day Years Used Date Smoking Tobacco: Never Assessed Sex and Gender Information Value Date Recorded Sex Assigned at Not on file Legal Sex Male 6:10 PM EDT Gender Identity Not on file Sexual Orientation Straight 03/02/2021 10 :04 AM EDT documented as of this encounter Miscellaneous Notes * Progress Notes - Erika Truong - 04/13/2017 1:15 PM EDT orders in [facility] for [place] - pt has rtc apt [...] documented as of this encounter Care Teams Referral Management Liaison Relationship Specialty Start Date End Date Edgar Fournier MD [address] [place] [address] PCP - General 12/25/20 Enrique Griffith MD [address] [place] [phone] Referring Physician Nephrology 01/08/21 documented as of this encounter
--- OUTSIDE RECORDS SUMMARY | 2025-06-10 12:47 | XMS_ITS | Encounter Summary ---
Author Organization [facility] Address [address] [id number] Care Team Providers Care Manager Management Name Role Phone Edgar Fournier MD Primary Care Provider [phone] Enrique Griffith MD Unavailable [phone] Encounter Details Date Type Department Care Team (Late st Contact Info) Description 03/07/2017 Legacy OTTR Encounter Historical OTTR [address] [place] [address] Bridgett Márquez, RN [facility] LIVER [id number] [address] [place] [address] Social History Tobacco Use Types Packs/Day Years [...] 03/07/2017 8:01 AM EDT Patient admitted to [facility] for HE and abdominal pain. MELD [...] ORDERABLES Final R esult Performing Organization Address [facility] Co de Phone Number EXTERNAL LAB * OTTR LAB RESULTS (MANUAL) (03/06/2017 8:02 PM EDT) External Estimated GFR 68.91 EXTERNAL LAB 03/06/2017 8:02 PM EDT Narrative EXTERNAL LAB - 03/06/2017 8:41 PM EDT Automated LAB Interface Historical Provider LAB BLOOD ORDERABLES Final R esult Performing Organization Address [facility] Co de Phone Number EXTERNAL LAB documented in this encounter Visit Diagnoses Not on filedocumented in this encounter Additional Health Concerns Infection Onset Date Last Indicated Resolved Time COVID-19 Rule-Out 11/08/2021 11/08/2021 11/08/2021 8:06 AM EDT documented as of this encounter Care Teams Manager Management Relationship Specialty Start Date End Date Edgar Fournier MD [address] [place] [address] PCP - General 12/25/20 Enrique Griffith MD [address] [place] [address] Referring Physician Nephrology 01/08/21 documented as of this encounter
--- OUTSIDE RECORDS SUMMARY | 2025-06-10 12:47 | XMS_ITS | Encounter Summary ---
Author Organization [facility] Address [address] [place] [address] Care Team Providers Care Pottery Machine Operator Name Role Phone Edgar Fournier MD Primary Care Provider [phone] Enrique Griffith MD Unavailable [phone] Encounter Details Date Type Department Care Team (Late st Contact Info) Description 02/22/2017 [facility] OTTR Encounter Historical OTTR [address] [place] [address] Bridgett Márquez, RN HOSPITAL LIVER [id number] [address] [place] [address] Social History Tobacco Use Types Packs/Day Years [...] was elevated. Rescheduled appt for 7-14 at 00. documented in this encounter Plan of Treatment Not on file documented as of this encounter Visit Diagnoses Not on filedocumented in this encounter Additional Health Concerns Infection Onset Date Last Indicated Resolved Time COVID-19 Rule-Out 11/08/2021 11/08/2021 11/08/2021 8:06 AM EDT documented as of this encounter Care Teams Pottery Machine Operator Relationship Specialty Start Date End Date Edgar Fournier MD [address] [place] [address] PCP - General 12/25/20 Enrique Griffith MD [address] [place] [phone] Referring Physician Nephrology 01/08/21 documented as of this encounter
--- OUTSIDE RECORDS SUMMARY | 2025-06-10 12:48 | XMS_ITS | Encounter Summary ---
Author Organization [facility] Address [address] [place] [address] Care Team Providers Care Video Arcade Manager Name Role Phone Edgar Fournier MD Primary Care Provider [phone] Enrique Griffith MD Unavailable [phone] Encounter Details Date Type Department Care Team (Late st Contact Info) Description 12/16/2016 [facility] OTTR Encounter Historical OTTR [address] [place] [address] Bridgett Márquez, RN [facility] [id number] [address] [place] [address] Social History Tobacco Use Types Packs/Day Years [...] EDT Patient scheduled for infusion 8am at [facility]. documented in this encounter Plan of Treatment Not on file documented as of this encounter Visit Diagnoses Not on filedocumented in this encounter Additional Health Concerns Infection Onset Date Last Indicated Resolved Time COVID-19 Rule-Out 11/08/2021 11/08/2021 11/08/2021 8:06 AM EDT documented as of this encounter Care Teams Video Arcade Manager Relationship Specialty Start Date End Date Edgar Fournier MD [address] [place] [address] PCP - General 12/25/20 Enrique Griffith MD [address] [place] [address] Referring Physician Nephrology 01/08/21 documented as of this encounter
--- OUTSIDE RECORDS SUMMARY | 2025-06-10 12:48 | XMS_ITS | Encounter Summary ---
Author Organization [facility] Address [address] [place] [address] Care Team Providers Care Block Handler Name Role Phone Edgar Fournier MD Primary Care Provider Enrique Griffith MD Unavailable [phone] Encounter Details Date Type Department Care Team (Late st Contact Info) Description 12/06/2016 Legacy OTTR Encounter Historical OTTR [address] [place] [address] Bridgett Márquez, RN [facility] [id number] [address] [place] [address] Social History Tobacco Use Types Packs/Day Years [...] diuretics. he understood. Will fax orders to [facility]. documented in this encounter Plan of Treatment Not on file documented as of this encounter Visit Diagnoses Not on filedocumented in this encounter Additional Health Concerns Infection Onset Date Last Indicated Resolved Time COVID-19 Rule-Out 11/08/2021 11/08/2021 11/08/2021 8:06 AM EDT documented as of this encounter Care Teams Block Handler Relationship Specialty Start Date End Date Edagr Fournier MD [address] [place] [address] PCP - General 12/25/20 Enrique Griffith MD [address] [place] [phone] Referring Physician Nephrology 01/08/21 documented as of this encounter
--- OUTSIDE RECORDS SUMMARY | 2025-06-10 12:48 | XMS_ITS | Encounter Summary ---
Author Organization [facility] Address [address] [place] [address] Care Team Providers Care Radio Maintainer Name Role Phone Edgar Fournier MD Primary Care Provider [phone] Enrique Griffith MD Unavailable [phone] Encounter Details Date Type Department Care Team (Late st Contact Info) Description 11/17/2016 Legacy OTTR Encounter Historical OTTR [address] [place] [address] Cristal Montano [facility] [address] [place] [address] Social History Tobacco Use Types Packs/Day Years [...] documented as of this encounter Care Teams Radio Maintainer Relationship Specialty Start Date End Date Edgar Fournier MD [address] [place] [address] PCP - General 12/25/20 Enrique Griffith MD [address] [place] [address] Referring Physician Nephrology 01/08/21 documented as of this encounter
--- OUTSIDE RECORDS SUMMARY | 2025-06-10 12:48 | XMS_ITS | Encounter Summary ---
Author Organization [facility] Address [address] [place] [address] Care Team Providers Care Databases Computer Consultant Name Role Phone Edgar Fournier MD Primary Care Provider [phone] Enrique Griffith MD Unavailable [phone] Encounter Details Date Type Department Care Team (Late st Contact Info) Description 11/23/2016 Legacy OTTR Encounter Historical OTTR [address] [place] [address] Bridgett Márquez, RN [facility] [id number] [address] [id number] Social History Tobacco Use Types Packs/Day Years [...] 5:34 PM EDT patient d/c home. RTC 12-06-16 documented in this encounter Plan of Treatment Not on file documented as of this encounter Visit Diagnoses Not on filedocumented in this encounter Additional Health Concerns Infection Onset Date Last Indicated Resolved Time COVID-19 Rule-Out 11/08/2021 11/08/2021 11/08/2021 8:06 AM EDT documented as of this encounter Care Teams Databases Computer Consultant Relationship Specialty Start Date End Date Edgar Fournier MD [address] [place] [address] PCP - General 12/25/20 Enrique Griffith MD [address] [place] [address] Referring Physician Nephrology 01/08/21 documented as of this encounter
--- OUTSIDE RECORDS SUMMARY | 2025-06-10 12:48 | XMS_ITS | Encounter Summary ---
Author Organization [facility] Address [address] [place] [address] Care Team Providers Care Shaping Machine Tender Name Role Phone Edgar Fournier MD Primary Care Provider Enrique Griffith MD Unavailable [phone] Encounter Details Date Type Department Care Team (Late st Contact Info) Description 12/13/2016 Legacy OTTR Encounter Historical OTTR [address] [place] [address] Bridgett Márquez, RN [facility] [id number] [address] [place] [address] Social History Tobacco Use Types Packs/Day Years [...] 12/13/2016 9:55 AM EDT Patient to RTC 01-17-17. Need udpated labs from patient. documented in this encounter Plan of Treatment Not on file documented as of this encounter Visit Diagnoses Not on filedocumented in this encounter Additional Health Concerns Infection Onset Date Last Indicated Resolved Time COVID-19 Rule-Out 11/08/2021 11/08/2021 11/08/2021 8:06 AM EDT documented as of this encounter Care Teams Shaping Machine Tender Relationship Specialty Start Date End Date Edgar Fournier MD [address] [place] [address] PCP - General 12/25/20 Enrique Griffith MD [address] [place] [phone] Referring Physician Nephrology 01/08/21 documented as of this encounter
--- OUTSIDE RECORDS SUMMARY | 2025-06-10 12:48 | XMS_ITS | Encounter Summary ---
Author Organization [facility] Address [address] [id number] Care Team Providers Care School Photograph Editor Name Role Phone Edgar Fournier MD Primary Care Provider Enrique Griffith MD Unavailable [phone] Encounter Details Date Type Department Care Team (Late st Contact Info) Description 01/05/2017 Legacy OTTR Encounter Historical OTTR [address] [place] [address] Bridgett Márquez, RN [facility] LIVER [id number] [address] [place] [address] Social History Tobacco Use Types Packs/Day Years [...] documented as of this encounter Care Teams School Photograph Editor Relationship Specialty Start Date End Date Edgar Fournier MD [address] [place] [address] PCP - General 12/25/20 Enrique Griffith MD [address] [place] [address] Referring Physician Nephrology 01/08/21 documented as of this encounter
--- OUTSIDE RECORDS SUMMARY | 2025-06-10 12:48 | XMS_ITS | Encounter Summary ---
Author Organization [facility] Address [address] [place] [address] Care Team Providers Care Cell Repairer Name Role Phone Edgar Fournier MD Primary Care Provider Enrique Griffith MD Unavailable [phone] Encounter Details Date Type Department Care Team (Late st Contact Info) Description 03/08/2017 Legacy OTTR Encounter Historical OTTR [address] [place] [address] Bridgett Márquez, RN [facility] [id number] [address] [phone] Social History Tobacco Use Types Packs/Day Years [...] to to care. Paged Dr. Evans at [facility] [phone]) documented in this encounter Plan of Treatment [...] as of this encounter Care Teams Cell Repairer Relationship Specialty Start Date End Date Edgar Fournier MD [address] [place] [address] PCP - General 12/25/20 Enrique Griffith MD [address] [place] [phone] Referring Physician Nephrology 01/08/21 documented as of this encounter
--- OUTSIDE RECORDS SUMMARY | 2025-06-10 12:48 | XMS_ITS | Encounter Summary ---
Author Organization [facility] Address [address] [place] [address] Care Team Providers Care Melter Supervisor Oxygen Furnace Name Role Phone Edgar Fournier MD Primary Care Provider Enrique Griffith MD Unavailable [phone] Encounter Details Date Type Department Care Team (Late st Contact Info) Description 11/21/2016 Legacy OTTR Encounter Historical OTTR [address] [place] [address] Bridgett Márquez, RN [facility] [id number] [address] [place] [address] Social History Tobacco Use Types Packs/Day Years [...] documented as of this encounter Care Teams Melter Supervisor Oxygen Furnace Relationship Specialty Start Date End Date Edgar Fournier MD [address] [place] [address] PCP - General 12/25/20 Enrique Griffith MD [address] [place] [address] Referring Physician Nephrology 01/08/21 documented as of this encounter
--- OUTSIDE RECORDS SUMMARY | 2025-06-10 12:48 | XMS_ITS | Encounter Summary ---
Author Organization [facility] Address [address] [place] [address] Care Team Providers Care Senior Director Finance Name Role Phone Edgar Fournier MD Primary Care Provider Enrique Griffith MD Unavailable [phone] Encounter Details Date Type Department Care Team (Late st Contact Info) Description 12/06/2016 Legacy OTTR Encounter Historical OTTR [address] [place] [address] Roxi Vazquez [facility] [address] [place] [address] Social History Tobacco Use Types Packs/Day Years [...] to [facility] Main Registration.No prep needed. [facility] to notify patient. documented in this encounter Plan of Treatment Not on file documented as of this encounter Visit Diagnoses Not on filedocumented in this encounter Additional Health Concerns Infection Onset Date Last Indicated Resolved Time COVID-19 Rule-Out 11/08/2021 11/08/2021 11/08/2021 8:06 AM EDT documented as of this encounter Care Teams Senior Director Finance Relationship Specialty Start Date End Date Edgar Fournier MD [address] [place] [address] PCP - General 12/25/20 Enrique Griffith MD [address] [place] [address] Referring Physician Nephrology 01/08/21 documented as of this encounter
--- OUTSIDE RECORDS SUMMARY | 2025-06-10 12:48 | XMS_ITS | Encounter Summary ---
Author Organization [facility] Address [address] [place] [address] Care Team Providers Care Applications Chemist Name Role Phone Edgar Fournier MD Primary Care Provider [phone] Enrique Griffith MD Unavailable [phone] Encounter Details Date Type Department Care Team (Late st Contact Info) Description 11/22/2016 Legacy OTTR Encounter Historical OTTR [address] [place] [address] Bridgett Márquez, RN [facility] LIVER [id number] [address] [place] [address] Social History Tobacco Use Types Packs/Day Years [...] as of this encounter Care Teams Applications Chemist Relationship Specialty Start Date End Date Edgar Fournier MD [address] [place] [address] PCP - General 12/25/20 Enrique Griffith MD [address] [place] [address] Referring Physician Nephrology 01/08/21 documented as of this encounter
--- OUTSIDE RECORDS SUMMARY | 2025-06-10 12:48 | XMS_ITS | Encounter Summary ---
Author Organization [facility] Address [address] [place] [address] Care Team Providers Care Android Ios Developer Name Role Phone Edgar Fournier MD Primary Care Provider [phone] Enrique Griffith MD Unavailable [phone] Encounter Details Date Type Department Care Team (Late st Contact Info) Description 12/16/2016 Legacy OTTR Encounter Historical OTTR [address] [place] [address] Bridgett Márquez, RN [facility] [id number] [address] [place] [address] Social History Tobacco Use Types Packs/Day Years [...] documented as of this encounter Care Teams Android Ios Developer Relationship Specialty Start Date End Date Edgar Fournier MD [address] [place] [address] PCP - General 12/25/20 Enrique Griffith MD [address] [place] [address] Referring Physician Nephrology 01/08/21 documented as of this encounter
--- OUTSIDE RECORDS SUMMARY | 2025-06-10 12:48 | XMS_ITS | Encounter Summary ---
Author Organization [facility] Address [address] [place] [address] Care Team Providers Care Php Programmer Name Role Phone Edgar Fournier MD Primary Care Provider Enrique Griffith MD Unavailable [phone] Encounter Details Date Type Department Care Team (Late st Contact Info) Description 01/05/2017 Legacy OTTR Encounter Historical OTTR [address] [place] [address] Sandrita Ferguson, ADMISSION NURSE [address] [facility] J[address] [place] [address] Social History Tobacco Use Types Packs/Day Years [...] PM EDT 41y male with history of Kim cirrhosis, currently listed active for transplant, esophageal varices, Gilbert syndrome, type II diabetic who presented to the [facility] ED for evaluation of hematemesis and melena. [...] documented as of this encounter Care Teams Php Programmer Relationship Specialty Start Date End Date Edgar Fournier MD [address] [place] [address] PCP - General 12/25/20 Enrique Griffith MD [address] [place] [address] Referring Physician Nephrology 01/08/21 documented as of this encounter
--- OUTSIDE RECORDS SUMMARY | 2025-06-10 12:48 | XMS_ITS | Encounter Summary ---
Author Organization [facility] Address [address] [id number] Care Team Providers Care Bank Vault Custodian Name Role Phone Edgar Fournier MD Primary Care Provider [phone] Enrique Griffith MD Unavailable [phone] Encounter Details Date Type Department Care Team (Late st Contact Info) Description 12/15/2016 Legacy OTTR Encounter Historical OTTR [address] [place] [address] Bridgett Márquez, RN [facility] [id number] [address] [place] [address] Social History Tobacco Use Types Packs/Day Years [...] EXTERNAL LAB - 12/16/2016 12:48 PM EDT [facility] us Historical Provider LAB BLOOD ORDERABLES Final R esult EXTERNAL LAB documented in this encounter Visit Diagnoses Not on filedocumented in this encounter Additional Health Concerns Infection Onset Date Last Indicated Resolved Time COVID-19 Rule-Out 11/08/2021 11/08/2021 11/08/2021 8:06 AM EDT documented as of this encounter Care Teams Bank Vault Custodian Relationship Specialty Start Date End Date Edgar Fournier MD [address] [place] [address] PCP - General 12/25/20 Enrique Griffith MD [address] [place] [address] Referring Physician Nephrology 01/08/21 documented as of this encounter
--- OUTSIDE RECORDS SUMMARY | 2025-06-10 12:48 | XMS_ITS | Encounter Summary ---
Author Organization [facility] Address [address] [place] [address] Care Team Providers Care Senior Data Analyst Name Role Phone Edgar Fournier MD Primary Care Provider Enrique Griffith MD Unavailable [phone] Encounter Details Date Type Department Care Team (Late st Contact Info) Description 12/16/2016 Legacy OTTR Encounter Historical OTTR [address] [place] [address] Bridgett Márquez, RN HOSPITAL LIVER [id number] [address] [place] [address] Social History Tobacco Use Types Packs/Day Years [...] as of this encounter Care Teams Senior Data Analyst Relationship Specialty Start Date End Date Edgar Fournier MD [address] [place] [address] PCP - General 12/25/20 Enrique Griffith MD [address] [place] [address] Referring Physician Nephrology 01/08/21 documented as of this encounter
--- OUTSIDE RECORDS SUMMARY | 2025-06-10 12:48 | XMS_ITS | Encounter Summary ---
Author Organization [facility] Address [address] [place] [address] Care Team Providers Care Business Continuity Planning Director Name Role Phone Edgar Fournier MD Primary Care Provider Enrique Griffith MD Unavailable [phone] Encounter Details Date Type Department Care Team (Late st Contact Info) Description 12/27/2016 Legacy OTTR Encounter Historical OTTR [address] [place] [address] Bridgett Máruqez, RN [facility] [id number] [address] [phone] Social History Tobacco Use Types Packs/Day Years [...] 12/27/2016 1:55 PM EDT Patient to RTC 12-28-16 at 7am. documented in this encounter Plan of Treatment Not on file documented as of this encounter Visit Diagnoses Not on filedocumented in this encounter Additional Health Concerns Infection Onset Date Last Indicated Resolved Time COVID-19 Rule-Out 11/08/2021 11/08/2021 11/08/2021 8:06 AM EDT documented as of this encounter Care Teams Business Continuity Planning Director Relationship Specialty Start Date End Date Edgar Fournier MD [address] [place] [address] PCP - General 12/25/20 Enrique Griffith MD [address] [place] [address] Referring Physician Nephrology 01/08/21 documented as of this encounter
--- OUTSIDE RECORDS SUMMARY | 2025-06-10 12:48 | XMS_ITS | Encounter Summary ---
Author Organization [facility] Address [address] [place] [address] Care Team Providers Care Document Management Analyst Name Role Phone Edgar Fournier MD Primary Care Provider Enrique Griffith MD Unavailable [phone] Encounter Details Date Type Department Care Team (Late st Contact Info) Description 12/06/2016 Legacy OTTR Encounter Historical OTTR [address] [place] [address] Maren Friedman MD [address] [facility] D[address] [place] [address] Social History Tobacco Use Types [...] documented as of this encounter Care Teams Document Management Analyst Relationship Specialty Start Date End Date Edgar Fournier MD [address] [place] [address] PCP - General 12/25/20 Enrique Griffith MD [address] [place] [phone] Referring Physician Nephrology 01/08/21 documented as of this encounter
--- OUTSIDE RECORDS SUMMARY | 2025-06-10 12:48 | XMS_ITS | Encounter Summary ---
Author Organization [facility] Address [address] [place] [address] Care Team Providers Care Geology Professor Name Role Phone Edgar Fournier MD Primary Care Provider Enrique rGiffith MD Unavailable [phone] Encounter Details Date Type Department Care Team (Late st Contact Info) Description 03/08/2017 Legacy OTTR Encounter Historical OTTR [address] [place] [address] Bridgett Márquez, RN [facility] [id number] [address] [place] [address] Social History Tobacco Use Types Packs/Day Years [...] PM EDT Spoke with Dr. Evans at [facility]. he adv patient to be d/c home [...] as of this encounter Care Teams Geology Professor Relationship Specialty Start Date End Date Edgar Fournier MD [address] [place] [address] PCP - General 12/25/20 Enrique Griffith MD [address] [place] [phone] Referring Physician Nephrology 01/08/21 documented as of this encounter
--- OUTSIDE RECORDS SUMMARY | 2025-06-10 12:48 | XMS_ITS | Encounter Summary ---
Author Organization [facility] Address [address] [place] [address] Care Team Providers Care Employee Services Manager Name Role Phone Edgar Fournier MD Primary Care Provider [phone] Enrique Griffith MD Unavailable [phone] Encounter Details Date Type Department Care Team (Late st Contact Info) Description 12/28/2016 Legacy OTTR Encounter Historical OTTR [address] [place] [address] Bridgett Márquez, RN [facility] [id number] [address] [place] [address] Social History Tobacco Use Types Packs/Day Years [...] as of this encounter Care Teams Employee Services Manager Relationship Specialty Start Date End Date Edgar Fournier MD [address] [place] [address] PCP - General 12/25/20 Enrique Griffith MD [address] [place] [phone] Referring Physician Nephrology 01/08/21 documented as of this encounter
--- OUTSIDE RECORDS SUMMARY | 2025-06-10 12:48 | XMS_ITS | Encounter Summary ---
Author Organization [facility] Address [address] [place] [address] Care Team Providers Care Nurse Coordinator Name Role Phone Edgar Fournier MD Primary Care Provider [phone] Enrique Griffith MD Unavailable [phone] Encounter Details Date Type Department Care Team (Late st Contact Info) Description 11/16/2016 Legacy OTTR Encounter Historical OTTR [address] [place] [address] Roxi Vazquez [facility] [address] [place] [address] Social History Tobacco Use Types Packs/Day Years [...] after dischg. Told him I would have [facility] review and we would be i touch if needed. He verbalized understanding. documented in this encounter Plan of Treatment Not on file documented as of this encounter Visit Diagnoses Not on filedocumented in this encounter Additional Health Concerns Infection Onset Date Last Indicated Resolved Time COVID-19 Rule-Out 11/08/2021 11/08/2021 11/08/2021 8:06 AM EDT documented as of this encounter Care Teams Nurse Coordinator Relationship Specialty Start Date End Date Edgar Fournier MD [address] [place] [address] PCP - General 12/25/20 Enrique Griffith MD [address] [place] [phone] Referring Physician Nephrology 01/08/21 documented as of this encounter
--- OUTSIDE RECORDS SUMMARY | 2025-06-10 12:49 | XMS_ITS | Encounter Summary ---
Author Organization [facility] Address [address] [place] [address] Care Team Providers Care Independent Insurance Adjuster Name Role Phone Edgar Fournier MD Primary Care Provider Enrique Griffith MD Unavailable [phone] Encounter Details Date Type Department Care Team (Late st Contact Info) Description 09/07/2017 [facility] OTTR Encounter Historical OTTR [address] [place] [address] Bridgett Márquez, RN [facility] [id number] [address] [place] [id number] Social History Tobacco Use Types Packs/Day Years [...] 09/08/2017 3:23 AM EST Automated LAB Interface [facility] Provider LAB BLOOD ORDERABLES Final R esult Performing Organization Address [facility] Co de Phone Number EXTERNAL LAB * OTTR LAB RESULTS (MANUAL) (09/07/2017 4:40 AM EST) External Estimated GFR 59.49 EXTERNAL LAB 09/07/2017 4:40 AM EST Narrative EXTERNAL LAB - 09/07/2017 5:41 AM EST Automated LAB Interface Historical Provider LAB BLOOD ORDERABLES Final R esult Performing Organization Address City/[facility] Co de Phone Number EXTERNAL LAB documented in this encounter Visit Diagnoses Not on filedocumented in this encounter Additional Health Concerns Infection Onset Date Last Indicated Resolved Time COVID-19 Rule-Out 11/08/2021 11/08/2021 11/08/2021 8:06 AM EDT documented as of this encounter Care Teams Independent Insurance Adjuster Relationship Specialty Start Date End Date Edgar Fournier MD [address] [place] [address] PCP - General 12/25/20 Enrique Griffith MD [address] [place] [address] Referring Physician Nephrology 01/08/21 documented as of this encounter
--- OUTSIDE RECORDS SUMMARY | 2025-06-10 12:49 | XMS_ITS | Encounter Summary ---
Author Organization [facility] Address [address] [place] [address] Care Team Providers Care District Court Administrator Name Role Phone Edgar Fournier MD Primary Care Provider Enrique Griffith MD Unavailable Encounter Details Date Type Department Care Team (Late st Contact Info) Description 12/20/2016 [facility] OTTR Encounter Historical OTTR [address] [place] [address] Shara Huff, SAW SHARPENER, DNP [address] [facility] [address] [place] [address] Social History Tobacco Use Types Packs/Day Years [...] of this encounter Care Teams District Court Administrator Relationship Specialty Start Date End Date Edgar Fournier MD [address] [place] [address] PCP - General 12/25/20 Enrique Griffith MD [address] [place] [address] Referring Physician Nephrology 01/08/21 documented as of this encounter
--- OUTSIDE RECORDS SUMMARY | 2025-06-10 12:49 | XMS_ITS | Encounter Summary ---
Author Organization [facility] Address [address] [place] [address] Care Team Providers Care Enologist Name Role Phone Edgar Fournier MD Primary Care Provider Enrique Griffith MD Unavailable [phone] Encounter Details Date Type Department Care Team (Late st Contact Info) Description 08/23/2017 [facility] OTTR Encounter Historical OTTR [address] [place] [address] Bridgett Márquez, RN [id number] [address] [place] [address] Social History Tobacco Use Types Packs/Day Years [...] EST Rec'd ph call from Rom at [facility]. She is working on dual listing for patient. Forwarded recent scopes and scans. She will fax over labs from 08-21-16. documented in this encounter Plan of Treatment Not on file documented as of this encounter Visit Diagnoses Not on filedocumented in this encounter Additional Health Concerns Infection Onset Date Last Indicated Resolved Time COVID-19 Rule-Out 11/08/2021 11/08/2021 11/08/2021 8:06 AM EDT documented as of this encounter Care Teams Enologist Relationship Specialty Start Date End Date Edgar Fournier MD [address] [place] [address] PCP - General 12/25/20 Enrique Griffith MD [address] [place] [address] Referring Physician Nephrology 01/08/21 documented as of this encounter
--- OUTSIDE RECORDS SUMMARY | 2025-06-10 12:49 | XMS_ITS | Encounter Summary ---
Author Organization [facility] Address [address] [place] [address] Care Team Providers Care Resources Representative Name Role Phone Edgar Fournier MD Primary Care Provider [phone] Enrique Griffith MD Unavailable [phone] Encounter Details Date Type Department Care Team (Late st Contact Info) Description 08/23/2017 [facility] OTTR Encounter Historical OTTR [address] [place] [address] Bridgett Márquez, RN [facility] [id number] [address] [place] [phone] Social History Tobacco Use Types Packs/Day Years [...] documented as of this encounter Care Teams Resources Representative Relationship Specialty Start Date End Date Edgar Fournier MD [address] [place] [address] PCP - General 12/25/20 Enrique Griffith MD [address] [place] [address] Referring Physician Nephrology 01/08/21 documented as of this encounter
--- OUTSIDE RECORDS SUMMARY | 2025-06-10 12:49 | XMS_ITS | Encounter Summary ---
Author Organization [facility] Address [address] [place] [address] Care Team Providers Care Family Resource Coordinator Name Role Phone Edgar Fournier MD Primary Care Provider Enrique Griffith MD Unavailable Encounter Details Date Type Department Care Team (Late st Contact Info) Description 09/22/2017 Legacy OTTR Encounter Historical OTTR [address] [place] [address] Maren Friedman MD [address] [facility] [address] [place] [address] Social History Tobacco Use Types [...] as of this encounter Care Teams Family Resource Coordinator Relationship Specialty Start Date End Date Edgar Fournier MD [address] [place] [address] PCP - General 12/25/20 Enrique Griffith MD [address] [place] [address] Referring Physician Nephrology 01/08/21 documented as of this encounter
--- OUTSIDE RECORDS SUMMARY | 2025-06-10 12:49 | XMS_ITS | Encounter Summary ---
Author Organization [facility] Address [address] [place] [address] Care Team Providers Care Timber Estimator Name Role Phone Edgar Fournier MD Primary Care Provider Enrique Griffith MD Unavailable [phone] Encounter Details Date Type Department Care Team (Late st Contact Info) Description 12/19/2016 [facility] OTTR Encounter Historical OTTR [address] [place] [address] Bridgett Márquez, RN [facility] [id number] [address] [place] [address] Social History Tobacco Use Types Packs/Day Years [...] ORDERABLES Final R esult Performing Organization Address City/[facility] Co de Phone Number EXTERNAL LAB * OTTR LAB RESULTS (MANUAL) (12/18/2016 12:13 AM EDT) External Estimated GFR 83.77 EXTERNAL LAB 12/18/2016 12:1 3 AM EDT Narrative EXTERNAL LAB - 12/18/2016 1:04 AM EDT Automated LAB Interface Historical Provider LAB BLOOD ORDERABLES Final R esult Performing Organization Address City/[facility] Co de Phone Number EXTERNAL LAB documented in this encounter Visit Diagnoses Not on filedocumented in this encounter Additional Health Concerns Infection Onset Date Last Indicated Resolved Time COVID-19 Rule-Out 11/08/2021 11/08/2021 11/08/2021 8:06 AM EDT documented as of this encounter Care Teams Timber Estimator Relationship Specialty Start Date End Date Edgar Fournier MD [address] [place] [address] PCP - General 12/25/20 Enrique Griffith MD [address] [place] [address] Referring Physician Nephrology 01/08/21 documented as of this encounter
--- OUTSIDE RECORDS SUMMARY | 2025-06-10 12:49 | XMS_ITS | Encounter Summary ---
Author Organization [facility] Address [address] [place] [address] Care Team Providers Care Feeder Loader Name Role Phone Edgar Fournier MD Primary Care Provider Enrique Griffith MD Unavailable Encounter Details Date Type Department Care Team (Late st Contact Info) Description 09/07/2017 Legacy OTTR Encounter Historical OTTR [address] [place] [address] Sandrita Ferguson, FIOS LINE INSTALLER [address] [facility] [address] [place] [address] Social History Tobacco Use Types Packs/Day Years [...] M w/PMH of SAL cirrhosis s/p TIPS 2014, HTN, DM, HLD who was transferred from [...] his at home. We will ask our addiction social worker to reassess the patient at his next [...] documented as of this encounter Care Teams Feeder Loader Relationship Specialty Start Date End Date Edgar Fournier MD [address] [place] [address] PCP - General 12/25/20 Enrique Griffith MD [address] [place] [phone] Referring Physician Nephrology 01/08/21 documented as of this encounter
--- OUTSIDE RECORDS SUMMARY | 2025-06-10 12:49 | XMS_ITS | Encounter Summary ---
Author Organization [facility] Address [address] [place] [address] Care Team Providers Care Children'S Minister Name Role Phone Edgar Fournier MD Primary Care Provider Enrique Griffith MD Unavailable [phone] Encounter Details Date Type Department Care Team (Late st Contact Info) Description 08/29/2017 Legacy OTTR Encounter Historical OTTR [address] [place] [address] Roxi Vazquez [facility] [address] [place] [address] Social History Tobacco Use Types Packs/Day Years Used Date Smoking Tobacco: Never Assessed Sex and Gender Information Value Date Recorded Sex Assigned at Not on file Legal Sex Male 6:10 PM EDT Gender Identity Not on file Sexual Orientation Straight 03/02/2021 10 :04 AM EDT documented as of this encounter Miscellaneous Notes * Progress Notes - George November Harish - 08/29/2017 9:35 AM EST Spoke to [...] documented as of this encounter Care Teams Children'S Minister Relationship Specialty Start Date End Date Edgar Fournier MD [address] [place] [address] PCP - General 12/25/20 Enrique Griffith MD [address] [place] [address] Referring Physician Nephrology 01/08/21 documented as of this encounter
--- OUTSIDE RECORDS SUMMARY | 2025-06-10 12:49 | XMS_ITS | Encounter Summary ---
Author Organization [facility] Address [address] [place] [address] Care Team Providers Care Senior Staff Psychologist Name Role Phone Edgar Fournier MD Primary Care Provider [phone] Enrique Griffith MD Unavailable [phone] Encounter Details Date Type Department Care Team (Late st Contact Info) Description 08/23/2017 Legacy OTTR Encounter Historical OTTR [address] [place] [address] Bridgett Márquez, RN [facility] [id number] [address] [place] [phone] Social History Tobacco Use Types Packs/Day Years [...] as of this encounter Care Teams Senior Staff Psychologist Relationship Specialty Start Date End Date Edgar Fournier MD [address] [place] [address] PCP - General 12/25/20 Enrique Griffith MD [address] [place] [address] Referring Physician Nephrology 01/08/21 documented as of this encounter
--- OUTSIDE RECORDS SUMMARY | 2025-06-10 12:49 | XMS_ITS | Encounter Summary ---
Author Organization [facility] Address [address] [place] [address] Care Team Providers Care Grinder Machine Knife Setter Name Role Phone Edgar Fournier MD Primary Care Provider Enrique Griffith MD Unavailable Encounter Details Date Type Department Care Team (Late st Contact Info) Description 12/22/2016 Legacy OTTR Encounter Historical OTTR [address] [place] [address] Sandrita Ferguson, SALES RECRUITMENT SPECIALIST [address] [facility] [address] [place] [address] Social History Tobacco Use Types Packs/Day Years [...] documented as of this encounter Care Teams Grinder Machine Knife Setter Relationship Specialty Start Date End Date Edgar Fournier MD [address] [place] [address] PCP - General 12/25/20 Enrique Griffith MD [address] [place] [address] Referring Physician Nephrology 01/08/21 documented as of this encounter
--- OUTSIDE RECORDS SUMMARY | 2025-06-10 12:49 | XMS_ITS | Encounter Summary ---
Author Organization [facility] Address [address] [place] [address] Care Team Providers Care Hemstitcher Name Role Phone Edgar Fournier MD Primary Care Provider Enrique Griffith MD Unavailable Encounter Details Date Type Department Care Team (Late st Contact Info) Description 12/21/2016 Legacy OTTR Encounter Historical OTTR [address] [place] [address] Shara Huff, REFINERY TECHNICIAN, DNP [address] [facility] [address] [place] [address] Social History Tobacco Use Types Packs/Day Years [...] documented as of this encounter Care Teams Hemstitcher Relationship Specialty Start Date End Date Edgar Fournier MD [address] [place] [address] PCP - General 12/25/20 Enrique Griffith MD [address] [place] [address] Referring Physician Nephrology 01/08/21 documented as of this encounter
--- OUTSIDE RECORDS SUMMARY | 2025-06-10 12:49 | XMS_ITS | Encounter Summary ---
Author Organization [facility] Address [address] [place] [address] Care Team Providers Care Blade Changer Name Role Phone Edgar Fournier MD Primary Care Provider [phone] Enrique Griffith MD Unavailable [phone] Encounter Details Date Type Department Care Team (Late st Contact Info) Description 08/23/2017 Legacy OTTR Encounter Historical OTTR [address] [place] [address] Bridgett Márquez, RN [facility] [id number] [address] [place] [address] Social History Tobacco Use Types Packs/Day Years [...] 08/23/2017 8:20 AM EST Patient to RTC 17-18. Need to add Renal US to visit [...] documented as of this encounter Care Teams Blade Changer Relationship Specialty Start Date End Date Edgar Fournier MD [address] [place] [address] PCP - General 12/25/20 Enrique Griffith MD [address] [place] [address] Referring Physician Nephrology 01/08/21 documented as of this encounter
--- OUTSIDE RECORDS SUMMARY | 2025-06-10 12:50 | XMS_ITS | Encounter Summary ---
Author Organization [facility] Address [address] [place] [id number] Care Team Providers Care Foot Piece Assembler Name Role Phone Edgar Fournier MD Primary Care Provider Enrique Griffith MD Unavailable [phone] Encounter Details Date Type Department Care Team (Late st Contact Info) Description 10/02/2017 [facility] OTTR Committee Historical OTTR [address] [place] [address] Raquel Toribio, ADVERTISING INTERN [facility] [address] [place] [address] Social History Tobacco Use Types Packs/Day Years [...] is listed for liver transplant here at [facility], came in for follow-up. SAL Cirrhosis MELD-Na [...] recent Doppler in December - Will ask [facility] to please arrange for colonoscopy and video capsule endoscopy in [place] (both procedures in 1 day),indication: episodes of melena/hematochezia, anemia, s/p TIPS 10/2016, EGD no varices. I sent prescription for Mg citrate and PEG to his pharmacy through [facility]. RTC 1-2 weeks after endoscopy documented in this encounter Plan of Treatment Not on file documented as of this encounter Visit Diagnoses Not on filedocumented in this encounter Additional Health Concerns Infection Onset Date Last Indicated Resolved Time COVID-19 Rule-Out 11/08/2021 11/08/2021 11/08/2021 8:06 AM EDT documented as of this encounter Care Teams Foot Piece Assembler Relationship Specialty Start Date End Date Edgar Fournier MD [address] [place] [address] PCP - General 12/25/20 Enrique Griffith MD [address] [place] [address] Referring Physician Nephrology 01/08/21 documented as of this encounter
--- OUTSIDE RECORDS SUMMARY | 2025-06-10 12:50 | XMS_ITS | Encounter Summary ---
Author Organization [facility] Address [address] [place] [phone] Care Team Providers Care Geological Manager Name Role Phone Edgar Fournier MD Primary Care Provider Enrique Griffith MD Unavailable [phone] Encounter Details Date Type Department Care Team (Late st Contact Info) Description 10/09/2017 Legacy OTTR Encounter Historical OTTR [address] [place] [address] Bridgett Márquez RN [facility] LIVER [id number] [address] [place] [address] Social History Tobacco Use Types Packs/Day Years [...] documented as of this encounter Care Teams Geological Manager Relationship Specialty Start Date End Date Edgar Fournier MD [address] [place] [address] PCP - General 12/25/20 Enrique Griffith MD [address] [place] [address] Referring Physician Nephrology 01/08/21 documented as of this encounter
--- OUTSIDE RECORDS SUMMARY | 2025-06-10 12:50 | XMS_ITS | Encounter Summary ---
Author Organization [facility] Address [address] [place] [address] Care Team Providers Care President & Founder Name Role Phone Edgar Fournier MD Primary Care Provider Enrique Griffith MD Unavailable [phone] Encounter Details Date Type Department Care Team (Late st Contact Info) Description 08/28/2019 Legacy OTTR Encounter Historical OTTR [address] [place] [address] Tona Chaudhari [place] [phone] Social History Tobacco Use Types Packs/Day Years [...] for 09/30/19. * Progress Notes - Wesley ReddyPantograph Machine Operator - 08/28/2019 2:51 PM EST Rec'd fwd'd VM, from [facility], requesting scheduling for vein mapping forpt., pt. has dialysis MWF, requested notification at: [phone]. Fwd'd VM to surgical team, RWG/HEW. documented in this encounter Plan of Treatment Not on file documented as of this encounter Visit Diagnoses Not on filedocumented in this encounter Additional Health Concerns Infection Onset Date Last Indicated Resolved Time COVID-19 Rule-Out 11/08/2021 11/08/2021 11/08/2021 8:06 AM EDT documented as of this encounter Care Teams President & Founder Relationship Specialty Start Date End Date Edgar Fournier MD [address] [place] [address] PCP - General 12/25/20 Enrique Griffith MD [address] [place] [address] Referring Physician Nephrology 01/08/21 documented as of this encounter
--- OUTSIDE RECORDS SUMMARY | 2025-06-10 12:50 | XMS_ITS | Encounter Summary ---
Author Organization [facility] Address [address] [place] [address] Care Team Providers Care Icing Maker Name Role Phone Maile Valles RN Unavailable Unavail able Estephania Sharif PharmD Unavailable Christine Edgar Tolentino MD Primary Care Provider [phone] Khari Lema MD Unavailable [phone] Source Comments This information has been disclosed [...] release of HIV test results or diagnoses. [id number] Encounter Details Date Type Department Care Team (Late st Contact Info) Description 06/03/2025 Telephone [facility] Liver Transplant at [address] [address] Genevieve Palencia MA Social History Tobacco Use Types Packs/Day Years Used Date Smoking Tobacco: Never Smokeless Tobacco: Never Alcohol Use Standard Drinks/Week Comments Never 0 (1 standard drink = 0.6 oz pur e alcohol) Utilities Answer Date Recorded In the past 12 months has th e [employer], [employer], oil, or water [employer] threatened to shut off services in your [...] any time in the past 12 m [facility], were you homeless or living in a correction (including now)? No 12/03/2024 Yearly Questionnaire Answer [...] Progress Notes * Maile Valles RN - 06/03/2025 1:37 PM EDT Spoke with patient. He does home dialysis, typically 5 days a week. Reports that he missed yesterday and will dialyze today. States that he feels fine, but knowing the lab results will dialyze as soon as he gets home. Liver Txp Provider updated. * Genevieve Palencia MA - 06/03/2025 1:13 PM EDT Laurence from [facility] called to report 2 critical results from today's collection at 11:25 AM. Potassium: 6.7 (Specimen not hemolyzed) Creatinine: 10.20 Results are being faxed to [facility]. Sending high priority to CC JANA persaud as well as through Teams. documented in this encounter Plan of Treatment Upcoming Encounters Date Type Department Care Team (Latest Contact Info) Description 06/12/2025 1:59 PM EDT Hospital Encounter [facility] Cardiac Staffing Coordinator [address] [place] [phone] Cuong Dobson MD [address] [facility] [place] [address] Essential (primary) hypertension; Type 2 diabetes 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, with long-term current use of insulin ([facility]); ESRD (end stage renal disease) on dialysis ([facility]); Pre-transplant evaluation for kidney transplant; High risk surgery, pre-operative cardiovascular examination 06/12/2025 1:59 PM EDT - 06/12/2025 3:00 PM EDT Surgery [facility] Cardiac Staffing Coordinator [address] [place] [phone] Cuong Dobson MD [address] [facility] [place] [address] Left and Right Heart Cath documented as of this encounter Visit Diagnoses Not on filedocumented in this encounter Additional Health Concerns Assessment Noted Time PHQ-9 Depression Total Score: 0 12/06/19 18 3:00 PM EDT documented as of this encounter Care Teams Icing Maker Relationship Specialty Start Date End Date Edgar Fournier MD [address] [place] [address] PCP - General 12/22/21 Maile Valles, RN Txp Post Coordinator Transplant Hepatology 11/07/17 Estephania Sharif, PharmD Pharmacist Pharmacist 11/11/19 Khari Lema MD [address] [facility] [address] [facility] [place] [phone] Txp Director Design Transplant Hepatology 05/29/25 documented as of this encounter
--- OUTSIDE RECORDS SUMMARY | 2025-06-10 12:50 | XMS_ITS | Encounter Summary ---
Author Organization [facility] Address [address] [place] [address] Care Team Providers Care Tenterer Name Role Phone Edgar Fournier MD Primary Care Provider Enrique Griffith MD Unavailable [phone] Encounter Details Date Type Department Care Team (Late st Contact Info) Description 09/20/2017 [facility] OTTR Encounter Historical OTTR [address] [place] [address] Bridgett Márquez, RN [facility] [id number] [address] [place] [id number] Social History Tobacco Use Types Packs/Day Years [...] documented as of this encounter Care Teams Tenterer Relationship Specialty Start Date End Date Edgar Fournier MD [address] [place] [address] PCP - General 12/25/20 Enrique Griffith MD [address] [place] [address] Referring Physician Nephrology 01/08/21 documented as of this encounter
--- OUTSIDE RECORDS SUMMARY | 2025-06-10 12:50 | XMS_ITS | Encounter Summary ---
Author Organization [facility] Address [address] [place] [address] Care Team Providers Care Operations Support Coordinator Name Role Phone Edgar Fournier MD Primary Care Provider [phone] Enrique Griffith MD Unavailable [phone] Encounter Details Date Type Department Care Team (Late st Contact Info) Description 09/13/2017 [facility] OTTR Encounter Historical OTTR [address] [place] [address] Bridgett Márquez, RN [facility] LIVER [id number] [address] [place] [phone] Social History Tobacco Use Types Packs/Day Years [...] of this encounter Care Teams Operations Support Coordinator Relationship Specialty Start Date End Date Edgar Fournier MD [address] [place] [address] PCP - General 12/25/20 Enrique Griffith MD [address] [place] [address] Referring Physician Nephrology 01/08/21 documented as of this encounter
--- OUTSIDE RECORDS SUMMARY | 2025-06-10 12:51 | XMS_ITS | Encounter Summary ---
Author Organization [facility] Address [address] [place] [address] Care Team Providers Care Airplane Designer Name Role Phone Maile Valles RN Unavailable Unavail able Estephania Sharif PharmD Unavailable Christine Edgar Tolentino MD Primary Care Provider [phone] Khari Lema MD Unavailable [phone] Source Comments This information has been disclosed [...] release of HIV test results or diagnoses. [id number] Encounter Details Date Type Department Care Team (Late st Contact Info) Description 06/03/2025 Chart Note [facility] Liver Transplant at [place] [id number] [facility] [address] [place] [address] Genevieve Palencia MA 06/03 Labs entered from [facility] Lab Social History Tobacco Use Types Packs/Day Years [...] in the past 12 m [facility], were you homeless or living in [...] of this encounter Progress Notes * Genevieve Palencia MA - 06/03/2025 2:01 PM EDT 06/03 Labs entered from [facility] documented in this encounter Plan of Treatment Upcoming Encounters Date Type Department Care Team (Latest Contact Info) Description 06/12/2025 1:59 PM EDT Hospital Encounter [facility] Cardiac Business Services Analyst [address] [place] [address] Cuong Dobson MD [address] [place] [address] [place] [phone] Essential (primary) hypertension; Type 2 diabetes 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, with long-term current use of insulin [place] ESRD (end stage renal disease) on dialysis ([facility] Pre-transplant evaluation for kidney transplant; High risk surgery, pre-operative cardiovascular examination 06/12/2025 1:59 PM EDT - 06/12/2025 3:00 PM EDT Surgery [facility] Cardiac Business Services Analyst [address] [place] [phone] Cuong Dobson MD [address] [facility] [place] [address] Left and Right Heart Cath documented as of this encounter Procedures Procedure Name Priority Date/Time Associated Diagnosis Comments HEPATIC FUNCTION PANEL Routine 06/03/2025 11:24 AM EDT CYCLOSPORINE LEVEL Routine 06/03/2025 11 :24 AM EDT CBC AND DIFFERENTIAL Routine 06/03/2025 11:24 AM EDT RENAL FUNCTION PANEL W/O EGFR Routine 06/03/2025 11:24 AM EDT documented in this encounter Results * Cyclosporine level (06/03/2025 11:24 AM EDT) Cyclosporine, Blood 42 Whole Blood Historical Provider MD LAB BLOOD ORDERABLES Yoselin l Result * Renal Function Panel w/o EGFR (06/03/2025 11:24 AM EDT) Glucose 165 BUN 63 CO2 17 13 - 22 mmol/L Creatinine 10.20 Potassium 6.7 Sodium 138 Chloride 103 Phosphorus 4.7 2.5 - 4.9 mg/dL Calcium 8.5 EGFR 7 mg/dL Albumin 4.4 3.5 - 5.0 g/dL Blood Narrative Resulting Agency Comment [facility] Lab Historical Provider MD LAB BLOOD ORDERABLES Yoselin l Result * (ABNORMAL) CBC and differential (06/03/2025 11:24 AM EDT) Hemoglobin 13.7 13.5 - 17.5 g/dL Hematocrit 45.2 41 - 53 % RDW 16.3(A) 11.5 - 14.5 % Lymphocytes Absolute 1.3 / L Monocytes Absolute 0.4 / L Eosinophils Absolute 0.1 / L Basophils Absolute 0.0 / L Neutrophils Relative 54.5 46 - 78 % Lymphocytes Relative 30.5 18 - 52 % Monocytes Relative 9.1 3 - 10 % Eosinophils Relative 1.2 0 - 6 % Basophils Relative 0.5 0 - 3 % Neutrophils Absolute 2.4 / L MCH 30.5 26.0 - 34.0 pg MCHC 30.3 30 - 37 g/dL MCV 100.7 82.0 - 108.0 fL Platelets 241 K/ L RBC 4.49(A) 4.50 - 5.90 10^6/ L WBC 4.3 10^3/mL Blood Narrative Resulting Agency Comment [facility] Lab Historical Provider MD LAB BLOOD ORDERABLES Ysoelin l Result * Hepatic Function Panel (06/03/2025 11:24 AM EDT) Bilirubin, Direct 0.7 Bilirubin, Indirect 0.0 Alkaline Phosphatase 96 ALT 13 AST 18 Total Bilirubin 0.7 Total Protein 7.0 Plasma Narrative Resulting Agency Comment [facility] Lab [facility] Provider MD LAB BLOOD ORDERABLES Yoselin l Result documented in this encounter Visit Diagnoses Not on filedocumented in this encounter Additional Health Concerns Assessment Noted Time PHQ-9 Depression Total Score: 0 12/06/19 18 3:00 PM EDT documented as of this encounter Care Teams Airplane Designer Relationship Specialty Start Date End Date Edgar Fournier MD [address] [place] [address] [place] [address] PCP - General 12/22/21 Maile Valles, JANA Txp Post Coordinator Transplant Hepatology 11/07/17 Estephania Sharif, DarrianD Pharmacist Pharmacist 11/11/19 Khari Lema MD [address] [facility] [address] [place] [address] Txp Dog Trainer Transplant Hepatology 05/29/25 documented as of this encounter
--- OUTSIDE RECORDS SUMMARY | 2025-06-10 12:51 | XMS_ITS | Encounter Summary ---
Author Organization [facility] Address [address] [place] [address] Care Team Providers Care After School Teacher Name Role Phone Edgar Fournier MD Primary Care Provider Enrique Griffith MD Unavailable [phone] Encounter Details Date Type Department Care Team (Late st Contact Info) Description 08/21/2017 [facility] OTTR Encounter Historical OTTR [address] [place] [address] Jack Ansari Social History Tobacco Use Types [...] EXTERNAL LAB - 08/23/2017 10:33 AM EST [facility] us Historical Provider LAB BLOOD ORDERABLES Final R esult EXTERNAL LAB documented in this encounter Visit Diagnoses Not on filedocumented in this encounter Additional Health Concerns Infection Onset Date Last Indicated Resolved Time COVID-19 Rule-Out 11/08/2021 11/08/2021 11/08/2021 8:06 AM EDT documented as of this encounter Care Teams After School Teacher Relationship Specialty Start Date End Date Edgar Fournier MD [address] [place] [address] PCP - General 12/25/20 Enrique Griffith MD [address] [place] [phone] Referring Physician Nephrology 01/08/21 documented as of this encounter
--- OUTSIDE RECORDS SUMMARY | 2025-06-10 12:51 | XMS_ITS | Encounter Summary ---
Author Organization [facility] Address [address] [place] [address] Care Team Providers Care Food Preparation Kitchen Aide Name Role Phone Jazmín Olmedo RN Unavailable Unavail able Estephania Sharif PharmD Unavailable Christine Edgar Tolentino MD Primary Care Provider [phone] Khari Lema MD Unavailable [phone] Source Comments This information has been disclosed [...] release of HIV test results or diagnoses. [id number] Reason for Visit * Reason Comments Consult Results Encounter Details Date Type Department Care Team (Late st Contact Info) Description 06/04/2025 Telephone [facility] Liver Transplant at [address] [address] Shanthi Hall MA Consult; Results Social History Tobacco Use Types Packs/Day [...] slept in a fci (including now)? No 11/05/2023 Housing Stability Vital Sign Answer Gilbert e Recorded In the last 12 months, was t here a time when you were not able to pay the mortgage or rent on time? No 12/03/2024 In the past 12 months, how m any times have you moved where you were living? 0 12/03/2024 At any time in the past 12 m [facility], were you homeless or living in a fci (including now)? No 12/03/2024 Yearly Questionnaire Answer [...] Progress Notes * Jazmín Olmedo RN - 06/06/2025 3:06 PM EDTAddended by: JAZMÍN OLMEDO on: 06/06/2025 03:06 PM Modules accepted: Orders * Jazmín Olmedo RN - 06/06/2025 2:37 PM EDT CSA 42 Will continue to monitor as per previously determined lab intervals. Patient called to review labs and recent encounter with his nip wrapper. Patient wanted to make sure Liver Txp Team aware he does not want to change his IS meds. Reviewed what cyclosporine and mycophenolate do and appropriate cyclosporine levels. Patient verbalized understanding. Spoke with Dr. Kay. Discussed trough level and cyclosporine dose. Explained not much room to lower cyclosporine level. Dr. Kay appreciated the information. Changed patient's Lokelma to Veltassa and will see if that helps the chronic hyperkalemia. * Jazmín Olmedo RN - 06/06/2025 9:40 AM EDT Lab results from 06/03/25 reviewed. Cr and K+ elevated, see separate encounter. LFTs normal. Alk phos 96, AST/ALT . CSA level pending. Current IS: CSA 100 mg in AM and 125 mg in PM MMF 250 mg BID Patient was initially switched in the early post-transplant period from FK to cyclosporine due to neurologic toxicity/AMS. Switched back to tacrolimus due to renal insufficiency in March 2018. Patient switched back to cyclosporine in July 2019 as he could not tolerate side effects. Awaiting latest CSA trough level. * Shanthi Hall MA - 06/04/2025 11:[address] Kay states he is Pt's nip wrapper and he has questions regarding Pt's CSA levels. Dr. Kay reports that Pt has has K+ levels of 7+ for months and they are working to determine the cause and he thinks it may be CSA. I confirmed for Dr. Kay that Pt is currently taking 100 mg AM and 125 mg PM which he advised is what he had in his notes. He asked for Pt's latest CSA level which I advised was still pending from labs drawn 06/03. Dr. Kay requests return call from CC RN Jazmín tomorrow at her convenience to discuss Pt. Dr. Kay provided his cell phone [phone]. documented in this encounter Plan of Treatment Upcoming Encounters Date Type Department Care Team (Latest Contact Info) Description 06/12/2025 1:59 PM EDT Hospital Encounter [facility] Cardiac Supervisor [employer] [address] [place] [phone] Cuong Dobson MD [address] [facility] [place] [address] Essential (primary) hypertension; Type 2 diabetes 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, with long-term current use of insulin [place] ESRD (end stage renal disease) on dialysis ([facility] Pre-transplant evaluation for kidney transplant; High risk surgery, pre-operative cardiovascular examination 06/12/2025 1:59 PM EDT - 06/12/2025 3:00 PM EDT Surgery [facility] Cardiac Supervisor [employer] [address] [place] [phone] Cuong Dobson MD [address] [facility] [place] [phone] Left and Right Heart Cath documented as of this encounter Visit Diagnoses Not on filedocumented in this encounter Additional Health Concerns Assessment Noted Time PHQ-9 Depression Total Score: 0 12/06/19 18 3:00 PM EDT documented as of this encounter Care Teams Food Preparation Kitchen Aide Relationship Specialty Start Date End Date Edgar Fournier MD [address] [place] [address] PCP - General 12/22/21 Jazmín Olmedo, JANA Txp Post Coordinator Transplant Hepatology 11/07/17 Estephania Sharif, DarrianD Pharmacist Pharmacist 11/11/19 Khari Lema MD [address] [facility] [address] [place] [address] Txp Hotel Valet Attendant Transplant Hepatology 05/29/25 documented as of this encounter
--- OUTSIDE RECORDS SUMMARY | 2025-06-10 12:51 | XMS_ITS | Encounter Summary ---
Author Organization [facility] Address [address] [place] [address] Care Team Providers Care Diamond Sizer And Grader Name Role Phone Edgar Fournier MD Primary Care Provider Enrique Griffith MD Unavailable [phone] Encounter Details Date Type Department Care Team (Late st Contact Info) Description 08/23/2017 [facility] OTTR Encounter Historical OTTR [address] [place] [address] Ktahya Hassan, PA [address] [facility] [address] [place] [address] Social History Tobacco Use Types Packs/Day Years [...] as of this encounter Care Teams Diamond Sizer And Grader Relationship Specialty Start Date End Date Edgar Fournier MD [address] [place] [address] PCP - General 12/25/20 Enrique Griffith MD [address] [place] [address] Referring Physician Nephrology 01/08/21 documented as of this encounter
--- OUTSIDE RECORDS SUMMARY | 2025-06-10 12:52 | XMS_ITS ---
Author Organization [facility] Address [address] [place] [id number] Care Team Providers Care Caustic Strength Inspector Name Role Phone Maile Valles RN Unavailable Unavail able Estephania Sharif PharmD Unavailable Christine Edgar Tolentino MD Primary Care Provider [phone] Khari Lema MD Unavailable Dialysis Access Sites Type Status Location Placement [...] Date/Time Associated Diagnosis Comments CYCLOSPORINE LEVEL Routine 06/03/2025 11 :24 AM EDT RENAL FUNCTION PANEL W/O EGFR Routine 06/03/2025 11:24 AM EDT CBC AND DIFFERENTIAL Routine 06/03/2025 11:24 AM EDT HEPATIC FUNCTION PANEL Routine 06/03/2025 11:24 AM EDT ECHO LIMITED W/ DOPPLER AND STRAIN Routine 04/21/2025 11:05 AM EDT Essential (primary) hypertension Type 2 diabetes 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, with long-term current use of [place] (end stage renal disease) on dialysis [place] Pre-transplant evaluation for kidney transplant CT ABDOMEN AND PELVIS WO IV CONTRAST Routine 03/27/2025 12:47 PM EDT Essential (primary) hypertension Type 2 diabetes 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, with long-term current use of insulin [place] ESRD (end stage renal disease) on dialysis [place] Pre-transplant evaluation for kidney transplant HIV 1+2 ANTIBODY/ANTIGEN WITH REFLEX Routine 02/04/2025 12:48 PM EDT Essential (primary) hypertension Type 2 diabetes 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, with long-term current use of insulin [place] ESRD (end stage renal disease) on dialysis [place] Pre-transplant evaluation for kidney transplant Routine history and physical examination of adult LIPID PANEL Routine 02/04/2025 12:48 PM EDT Essential (primary) hypertension Type 2 diabetes 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, with long-term current use of insulin [place] ESRD (end stage renal disease) on dialysis [place] Pre-transplant evaluation for kidney transplant Routine history and physical examination of adult HEMOGLOBIN A1C Routine 02/04/2025 12:48 PM EDT Essential (primary) hypertension Type 2 diabetes 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, with long-term current use of insulin [place] ESRD (end stage renal disease) on dialysis [place] Pre-transplant evaluation for kidney transplant Routine history and physical examination of adult HEPATITIS C ANTIBODY Routine 02/04/2025 12:48 PM EDT Essential (primary) hypertension Type 2 diabetes 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, with long-term current use of insulin [place] ESRD (end stage renal disease) on dialysis [place] Pre-transplant evaluation for kidney transplant Routine history and physical examination of adult ENDOSCOPY, COLON Routine 03/23/2022 9:13 AM EDT OCCULT BLOOD Routine 06/15/2020 9:10 AM EST from Last 3 Months or Most Recently Relevant to Health Maintenance Allergies Active Allergy Reactions Criticality Noted Date Comments Calcitriol Other (See Comments),Nausea And Vomiting 09/20/2023 Carbamazepine Other (See Comments) Medium 03/28/2024 Other Reaction(s): Adverse reaction to substance shakes Codeine Other (See Comments) Low 08/18/2017 Becomes hyper Codeine Sulfate 01/12/2019 Hyper Tacrolimus Other (See Comments) High 03/02/2021 Anxious feeling and muscle jerking. TOLERATED ENVARSUS BETTER THAN PROGRAF. Medications aspirin 81 MG chewable tablet Chew 1 tablet (81 mg total) by mouth daily with breakfast. 30 tablet 5 10/18/19 18 Active NIFEdipine (PROCARDIA-XL) 90 MG (OSM) 24 hr tablet Take 1 tablet (90 mg total) by mouth 2 times a day. 04/23/20 18 Active doxazosin (CARDURA) 8 MG tablet Take 1 tablet (8 mg total) by mouth at bedtime. 05/12/20 18 Active carBAMazepine (TEGRETOL) 200 mg tablet Take 1 tablet (200 mg total) by mouth 2 times a day. Active folic acid (FOLVITE) 1 MG tablet Take 1 tablet (1 mg total) by mouth daily. 30 tablet 11/03/19 22 Active montelukast (SINGULAIR) 10 mg tablet Take 1 tablet (10 mg total) by mouth daily as needed. pm 03/08/20 Active testosterone cypionate (DEPOTESTOTERONE CYPIONATE) 200 mg/mL injection Inject into the muscle every 28 days. Active pantoprazole (PROTONIX) 40 MG tablet Take 1 tablet (40 mg total) by mouth 2 times a day. 60 tablet 5 2 3:28 PM EDT 05/06/20 22 Active ergocalciferol (ERGOCALCIFEROL) 1,250 mcg (50,000 unit) capsule Take 1 capsule (50,000 Units total) by mouth Every Monday, , and Monday. Active ALPRAZolam (XANAX) 0.5 MG tablet Take 1 tablet (0.5 mg total) by mouth at bedtime as needed for Sleep. Active fenofibrate micronized (LOFIBRA) 134 MG capsule Take 1 capsule (134 mg total) by mouth before breakfast. Active fexofenadine (FRANCOIS) 180 MG tablet Take 1 tablet (180 mg total) by mouth daily. am Active hydrALAZINE (APRESOLINE) 100 MG tablet Take 1 tablet (100 mg total) by mouth every 8 hours. Active icosapent ethyL (VASCEPA) 1 gram Cap Take 2 capsules (2 g total) by mouth in the morning and at bedtime. Active insulin aspart U-100 (NOVOLOG) 100 unit/mL injection Inject 5 Units subcutaneously 3 times a day with meals. Active insulin NPH (HUMULIN N NPH U-100 INSULIN) 100 unit/mL injection Inject 30 Units subcutaneously if needed (patient reports he is on only humulin and novolog). Active ondansetron (ZOFRAN-ODT) 4 MG disintegrating tablet Take 1 tablet (4 mg total) by mouth every 8 hours as needed for Nausea. Active tenapanor 30 mg Tab Take 30 mg by mouth 2 times a day. Am,pm Active carvediloL (COREG) 25 MG tablet Take 2 tablets (50 mg total) by mouth 2 times a day. 180 tablet 3 08/10/20 24 Active proMETHazine-dextr omethorphan (PROMETHAZINE-DM) 6.25-15 mg/5 mL syrup if needed for Cough. 08/12/20 24 Active ipratropium (ATROVENT) 42 mcg (0.06 %) nasal spray if needed for Rhinitis. 08/27/19 25 Active metoprolol succinate (TOPROL-XL) 25 MG 24 hr tablet Take 1 tablet (25 mg total) by mouth daily. Am or pm Active entecavir (BARACLUDE) 0.5 MG tablet Take 1 tablet (0.5 mg total) by mouth every 7 days. On Wednesdays 4 tablet 12/09/19 25 Active calcium carbonate 1250 mg tablet, 500 mg elemental calcium, (OS-TABATHA) 500 mg calcium (1,250 mg) tablet Take 1 tablet (1,250 mg total) by mouth 3 times a day. 46 tablet 5 12:06 PM EDT 12/09/19 25 Active polyethylene glycol (MIRALAX) 17 gram/dose powder Mix one capful (17 g) into 8 oz of liquid and drink daily as instructed. 238 g 5 12:06 PM EDT 12/09/19 25 Active cycloSPORINE modified 25 MG capsuleIndications :Prevention of Liver Transplant Rejection Take 4 capsules (100 mg total) by mouth every morning AND 5 capsules (125 mg total) at bedtime. 810 capsule 1 5 3:45 PM EDT 02/27/20 25 Active mycophenolate (CELLCEPT) 250 mg capsule Take 1 capsule (250 mg total) by mouth 2 times a day. 180 capsule 1 5 3:45 PM EDT 02/27/20 25 Active patiromer calcium sorbitex (VELTASSA) 8.4 gram PwPk oral packet Take 8.4 g by mouth. Twice daily 06/04/20 25 Active Active Problems Patient Care Coordination No te Formatting of this note migh t be different from the original. OPAT monitoring: pt hemo-dialysis @ home; not yet started d/t insurance, pt decisions, infusion & home health requirements. See Epic notes 06/29, 06/30, 06/25 re this case. 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/03/2024 Assessment & Plan (12/07/2024 12:50 PM EDT): Currently s/p 3.5/4 parathyroidectomy and being monitored for hypocalcemia - Appreciate ENT recs - Cont calcium carbonate 2gr QID - Will add os-tabatha if ical drops @ 1200 - Increase calcitriol 2mg BID - Will discuss calcitriol alternatives - Trend ical Q6hr - Trend renal panel Q12hr - Multimodal pain management: - Cont acetaminophen 975 QID - Cont Robaxin 500mg QID - PO hydromorphone 1mg q6hr - Added PRN oxycodone 5-10mg q4hr - Senna/miralax Assessment & Plan (12/06/2024 12:24 PM EDT): Currently s/p 3.5/4 parathyroidectomy and being monitored for hypocalcemia - Appreciate ENT recs - Increased Calcium carbonate from 1.5g to 2g QID - Cont calcitriol 1mg BID - Will discuss calcitriol alternatives - Trend ical Q6hr - Trend renal panel Q12hr - Multimodal pain management: - Cont acetaminophen 975 QID - Cont Robaxin 500mg QID - PO hydromorphone 1.5mg q4hr - Senna/miralax Assessment & Plan (12/05/2024 11:25 AM EDT): Currently s/p 3.5/4 parathyroidectomy and being monitored for hypocalcemia - Appreciate ENT recs - Increased Calcium carbonate 1.5gr QID - Cont calcitriol 1mg BID - Will discuss calcitriol alternatives - Trend ical Q6hr - Trend renal panel Q12hr - Multimodal pain management: - Cont acetaminophen 975 QID - Cont Robaxin 500mg QID - PO hydromorphone 1.5mg q4hr - Senna/miralax Assessment & Plan (12/04/2024 12:04 PM EDT): Currently s/p 3.5/4 parathyroidectomy and being monitored for hypocalcemia - Appreciate ENT recs - Increased Calcium carbonate 1gr QID - Start calcitriol 1mg BID - Will discuss calcitriol alternatives - Trend ical Q6hr - Trend renal panel Q12hr - Multimodal pain management: - Increased acetaminophen 975 QID - Start Robaxin 500mg QID - PO hydromorphone 1.5mg q4hr - Senna/miralax Assessment & Plan (12/03/2024 3:36 PM EDT): Currently s/p 3.5/4 parathyroidectomy and being monitored for hypocalcemia - ENT to help with wound care/when to restart DVT prophylaxis - Calcium carbonate 1gr TID - Will discuss calcitriol alternatives - Trend ical Q6hr - Trend renal panel Q12hr - Pain management: - Acetaminophen 650 TID - Oxycodone 5mg q4hr PRN - Senna/miralax ESRD (end stage renal disease) on dialysis 12/03 Assessment & Plan (12/07/2024 12:50 PM EDT): Pt does home HD x4 per week through L tunneled line - Dialysis monday - Line clots easily - ENT ok with ASA --> restarted - heparin during dialysis - Resume non-formulary phosphate binder (xphozah) - Continue ergocalciferol 50 000 TTS Assessment & Plan (12/06/2024 12:24 PM EDT): Pt does home HD x4 per week through L tunneled line - Dialysis today - Line clots easily - ENT ok with ASA --> restarted - heparin during dialysis - Resume non-formulary phosphate binder (xphozah) - Continue ergocalciferol 50 000 TTS Assessment & Plan (12/05/2024 11:25 AM EDT): Pt does home HD x4 per week through L tunneled line - Plan for dialysis tomorrow - Line clots easily - ENT ok with ASA --> restarted - heparin during dialysis - Resume non-formulary phosphate binder (xphozah) - Continue ergocalciferol 50 000 TTS Assessment & Plan (12/04/2024 12:04 PM EDT): Pt does home HD x4 per week through L tunneled line - Plan for dialysis today - Resume non-formulary phosphate binder (xphozah) - Continue ergocalciferol 50 000 TTS Assessment & Plan (12/03/2024 3:36 PM EDT): Pt does home HD x4 per week through L tunneled line - Plan for dialysis tomorrow - Resume non-formulary phosphate binder (xphozah) - Continue ergocalciferol 34375 TTS Primary hypertension 12/03/2024 Assessment & Plan (12/07/2024 12:50 PM EDT): Pt manages BP through varying different medications based on BP/volume status/timing of HD Home med: coreg 50mg BID, hydralazine 100mg Q6hr, doxazosin 8mg at night, nifedipine xl 90mg, metoprolol 25mg for tachcyardia after dialysis. His preferred medications are hydralazine/nifedipine and +/- doxazosin at night - Cont hydralazine 100mg q6hr - Start home coreg 50mg BID Assessment & Plan (12/06/2024 12:24 PM EDT): Pt manages BP through varying different medications based on BP/volume status/timing of HD Home med: coreg 50mg BID, hydralazine 100mg Q6hr, doxazosin 8mg at night, nifedipine xl 90mg, metoprolol 25mg for tachcyardia after dialysis. His preferred medications are hydralazine/nifedipine and +/- doxazosin at night - Cont hydralazine 100mg q6hr - Start home coreg 50mg BID Assessment & Plan (12/05/2024 11:25 AM EDT): Pt manages BP through varying different medications based on BP/volume status/timing of HD Home med: coreg 50mg BID, hydralazine 100mg Q6hr, doxazosin 8mg at night, nifedipine xl 90mg, metoprolol 25mg for tachcyardia after dialysis. His preferred medications are hydralazine/nifedipine and +/- doxazosin at night - Cont hydralazine 100mg q6hr - Start home coreg 50mg BID Assessment & Plan (12/04/2024 11:55 AM EDT): Pt manages BP through varying different medications based on BP/volume status/timing of HD Home med: coreg 50mg BID, hydralazine 100mg Q6hr, doxazosin 8mg at night, nifedipine xl 90mg, metoprolol 25mg for tachcyardia after dialysis. His preferred medications are hydralazine/nifedipine and +/- doxazosin at night - This admission we will start with hydralazine w/ hold parameters Assessment & Plan (12/03/2024 3:36 PM EDT): Pt manages BP through varying different medications based on BP/volume status/timing of HD Home med: coreg 50mg BID, hydralazine 100mg Q6hr, doxazosin 8mg at night, nifedipine xl 90mg, metoprolol 25mg for tachcyardia after dialysis. His preferred medications are hydralazine/nifedipine and +/- doxazosin at night - This admission we will start with hydralazine w/ hold parameters Insulin dependent type 2 diabetes mellitus 12/03 Assessment & Plan (12/07/2024 12:50 PM EDT): Pt uses NHP 30-40 BID and glargine 5unit w/ sliding scale for meal coverage. He uses continuous glucose monitor to adjust insulin needs throughout the day. Last A1c 6.0 - Cont NPH 20 AM/PM - Medium dose sliding scale today Assessment & Plan (12/06/2024 12:24 PM EDT): Pt uses NHP 30-40 BID and glargine 5unit w/ sliding scale for meal coverage. He uses continuous glucose monitor to adjust insulin needs throughout the day. Last A1c 6.0 - Cont NPH 20 AM/PM - Medium dose sliding scale today Assessment & Plan (12/05/2024 11:25 AM EDT): Pt uses NHP 30-40 BID and glargine 5unit w/ sliding scale for meal coverage. He uses continuous glucose monitor to adjust insulin needs throughout the day. Last A1c 6.0 - Cont NPH 20 this AM/PM - Medium dose sliding scale today Assessment & Plan (12/04/2024 12:04 PM EDT): Pt uses NHP 30-40 BID and glargine 5unit w/ sliding scale for meal coverage. He uses continuous glucose monitor to adjust insulin needs throughout the day. Last A1c 6.0 - Plan for NPH 20 this AM - This AM glucose ~140s --> NPH 15 at PM - Medium dose sliding scale today Assessment & Plan (12/03/2024 3:36 PM EDT): Pt uses NHP 30-40 BID and glargine 5unit w/ sliding scale for meal coverage. He uses continuous glucose monitor to adjust insulin needs throughout the day. Last A1c 6.0 - NPO last night, will be conservative tonight - NPH 10 - Medium dose sliding scale today Myoclonus 08/09/2024 Acute internal jugular vein thrombosis, bilatera l 08/08/2024 Abdominal pain 04/28/2024 Incisional hernia following transplant [...] 12:08 PM EST): - prior cx's with [facility], recently GPCs which failed to grow - [...] for prophylaxis/suppression. Hep B viral load at [facility] was detectable, but to low to quantify. Infectious diseases is considering increasing entecavir and will follow up with outpatient transplant ID to discuss. PLAN: Continue entecavir 0.5 mg PO weekly Isolate during dialysis Right hip pain 06/13/2020 Assessment & Plan (06/24/2020 9:11 AM EST): Still unable to walk with therapy. Per PT, he is able to transfer but otherwise is not mobile. PLAN: Continue gabapentin 100 mg PO BID Continue methocarbamol 500 mg PO four times per day Continue PRN oxycodone 5 mg or 10 mg PO Q4H Assessment & Plan (06/23/2020 10:28 AM EST): Pain is better than on admission, but is still limiting his ability to participate with therapy. PLAN: Continue gabapentin 100 mg PO BID Continue methocarbamol 500 mg PO four times per day Continue PRN oxycodone 5 mg or 10 mg PO Q4H Assessment & Plan (06/13/2020 8:35 AM EDT): Does not appear to have imaging of hip. Will order today. Pain is better controlled today, but still limiting therapy. Discussed splitting gabapentin into two doses, which he would like to do. PLAN: Change gabapentin from 200 mg PO QHS to 100 mg PO BID Continue methocarbamol 500 mg PO four times per day Continue PRN oxycodone 5 mg or 10 [...] like to have it scheduled BID. PLAN: Change lorazepam 0.5 mg PO from Q8H PRN to BID Assessment & Plan (06/12/2020 3:51 PM EDT): Anxiety was increased today. He feels that the lorazepam helps, but he had not yet had a dose today. PLAN: Continue PRN lorazepam 0.5 mg PO Q8H for anxiety Assessment & Plan (06/09/2020 6:22 PM EDT): The patient takes alprazolam 2-3 times daily at home. He was getting once daily at [facility]. Will start lorazepam instead since it has a longer duration of action. PLAN: Start PRN lorazepam 0.5 mg PO Q8H for anxiety Obstructive sleep apnea 06/08/2020 Assessment & Plan (06/14/2020 10:23 AM EST): His home unit is here, but seems to be configured incorrectly. He is using hospital unit. PLAN: CPAP overnight Assessment & Plan (06/12/2020 3:51 PM EDT): Brought home unit it. PLAN: CPAP overnight Assessment & Plan (06/10/2020 5:40 PM EDT): Does not want to use our CPAP. PLAN: Can use home unit if brought in Osteomyelitis 05/28/2020 Assessment & Plan (06/24/2020 9:11 AM EST): Infectious diseases plans for extended course given immunosuppression. PLAN: Continue vancomycin with dialysis, treat through 07/23/2020 Safety labs weekly Refer for home infusion after discharge Assessment & Plan (06/22/2020 11:27 AM EST): Infectious diseases plans for extended course given immunosuppression. PLAN: Continue vancomycin with dialysis, treat through 07/23/2020 Safety labs weekly Refer for home infusion after discharge Assessment & Plan (06/14/2020 10:24 AM EST): Infectious diseases plans for extended course given immunosuppression. PLAN: Continue vancomycin with dialysis, treat through 07/23/2020 Safety labs weekly Assessment & Plan (06/13/2020 8:24 AM EDT): Had safety labs this week, which were reassuring. He asked if repeat MRI is needed to show resolution of epidural abscess/osteomyelitis. His symptoms are improving and he no longer has back pain. Given improvement in symptoms, I do not think he needs repeat imaging now. Pain is controlled. PLAN: Continue vancomycin with dialysis Safety labs weekly Assessment & Plan (06/12/2020 3:51 PM EDT): On vancomycin for MRSE. Infectious diseases is following. PLAN: Continue vancomycin with dialysis Safety labs weekly Assessment & Plan (06/10/2020 5:36 PM EDT): On vancomycin for MRSE. Infectious diseases is following. 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 Cultures did not grow, but this is the organism he previously had at prior hospital. He is currently on intermittent vancomycin. PLAN: Continue vancomycin with dialysis Safety labs weekly Allergy, unspecified, initial encounter 05/04/20 20 Discitis 04/28/2020 Disorder of phosphorus metabolism, unspecified 0 11/19/2019 Essential (primary) hypertension 11/12/2019 Assessment & Plan (06/26/2022 1:29 PM EST): Increase coreg to 50mg bid Assessment & Plan (06/24/2020 9:13 AM EST): The patient's blood pressure is above goal this morning, but is usually well controlled. BP: 140/74. Will re-assess tomorrow. PLAN: Continue hydralazine 100 mg PO Q8H Continue nifedipine XR 90 mg PO BID Continue metoprolol 25 mg PO BID Continue terazosin 10 mg PO QHS Assessment & Plan (06/23/2020 10:29 AM EST): The patient's blood pressure is above goal this morning, but is usually well controlled. BP: 154/72. Will re-assess tomorrow. PLAN: Continue hydralazine 100 mg PO Q8H Continue nifedipine XR 90 mg PO BID Continue metoprolol 25 mg PO BID Continue terazosin 10 mg PO QHS Assessment & Plan (06/22/2020 11:26 AM EST): The patient's blood pressure is within goal. BP: 127/63 PLAN: Continue hydralazine 100 mg PO Q8H Continue nifedipine XR 90 mg PO BID Continue metoprolol 25 mg PO BID Continue terazosin 10 mg PO QHS Assessment & Plan (06/13/2020 7:15 AM EDT): The patient's blood pressure is within goal. BP: 139/73 PLAN: Continue hydralazine 100 mg PO Q8H Continue nifedipine XR 90 mg PO BID Continue metoprolol 25 mg PO BID Continue terazosin 10 mg PO QHS Assessment & Plan (06/11/2020 1:40 PM EDT): The patient's blood pressure is within goal. BP: 104/52 PLAN: Continue hydralazine 100 mg PO Q8H Continue nifedipine XR 90 mg PO BID Continue metoprolol 25 mg PO BID Continue terazosin 10 mg PO QHS Assessment & Plan (06/10/2020 5:38 PM EDT): The patient's blood pressure is within goal. BP: 119/60 PLAN: Continue hydralazine 100 mg PO Q8H Continue nifedipine XR 90 mg PO BID Continue metoprolol 25 mg PO BID Continue terazosin 10 mg PO QHS Assessment & Plan (06/09/2020 6:23 PM EDT): The patient's blood pressure is within goal. BP: 135/72 PLAN: Continue hydralazine 100 mg PO Q8H Continue nifedipine XR 90 mg PO BID Continue metoprolol 25 mg PO BID Continue terazosin 10 mg PO QHS Type 2 diabetes mellitus wit h diabetic chronic kidney disease 11/12/2019 Assessment & Plan (06/24/2020 9:10 AM EST): Glucose well controlled yesterday. Received 1 unit of correction. PLAN: Continue insulin glargine 10 units subcutaneous QHS Continue insulin lispro 6 units subcutaneous QAC Continue insulin lispro correction 0-5 units subcutaneous QAC per low-dose scale Fingersticks QAC/QHS Assessment & Plan (06/23/2020 10:28 AM EST): Well controlled. AM glucose was 138. PLAN: Continue insulin glargine 10 units subcutaneous QHS Continue insulin lispro 6 units subcutaneous QAC Continue insulin lispro correction 0-5 units subcutaneous QAC per low-dose scale Fingersticks QAC/QHS Assessment & Plan (06/22/2020 11:27 AM EST): Glucose well controlled on current regimen. PLAN: Continue insulin glargine 10 units subcutaneous QHS Continue insulin lispro 6 units subcutaneous QAC Continue insulin lispro correction 0-5 units subcutaneous QAC per low-dose scale Fingersticks QAC/QHS Assessment & Plan (06/14/2020 10:20 AM EST): Bedtime glucose was 136 and fasting was 134 this morning. Very well controlled on current regimen. PLAN: Continue insulin glargine 10 units subcutaneous QHS Continue insulin lispro 6 units subcutaneous QAC Continue insulin lispro correction 0-5 units subcutaneous QAC per low-dose scale Fingersticks QAC/QHS Assessment & Plan (06/13/2020 8:10 AM EDT): Bedtime glucose was 211 and fasting was 194. Bolus seems appropriate. Will increase pre meal. PLAN: Continue insulin glargine 10 units subcutaneous QHS Increase insulin lispro from 4 units to 6 units subcutaneous QAC Continue insulin lispro correction 0-5 units subcutaneous QAC per low-dose scale Fingersticks QAC/QHS Assessment & Plan (06/12/2020 3:52 PM EDT): Glucose well controlled today. PLAN: Continue insulin glargine 10 units subcutaneous QHS Continue insulin lispro 4 units subcutaneous QAC Continue insulin lispro correction 0-5 units subcutaneous QAC per low-dose scale Fingersticks QAC/QHS Assessment & Plan (06/11/2020 1:39 PM EDT): Fasting glucose was unchanged from bedtime; basal insulin dose appears appropriate. PLAN: Continue insulin glargine 10 units subcutaneous QHS Continue insulin lispro 4 units subcutaneous QAC Continue insulin lispro correction 0-5 units subcutaneous QAC per low-dose scale Fingersticks QAC/QHS Assessment & Plan (06/10/2020 5:39 PM EDT): Remains above goal. Will increase insulin PLAN: Increase insulin glargine from 5 units to 10 units subcutaneous QHS Start insulin lispro 4 units subcutaneous QAC Continue insulin lispro correction 0-5 units subcutaneous QAC per low-dose scale Fingersticks QAC/QHS Assessment & Plan (06/09/2020 6:21 PM EDT): Glucose is above goal. Will add basal insulin. PLAN: Start insulin glargine 5 units subcutaneous QHS Continue insulin lispro correction 0-5 units subcutaneous QAC per low-dose scale Anemia, unspecified 11/12/2019 Assessment & Plan (06/24/2020 9:14 AM EST): Transfuse today in dialysis. PLAN: Continue epoetin 6000 units Mon/Wed/Fri Transfuse 1 unit PRBC tomorrow with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
--- OUTSIDE RECORDS SUMMARY | 2025-06-10 12:52 | XMS_ITS | Encounter Summary ---
Author Organization [facility] Address [address] [place] [address] Care Team Providers Care Car Repairer Apprentice Name Role Phone Edgar Fournier MD Primary Care Provider Enrique Griffith MD Unavailable Encounter Details Date Type Department Care Team (Late st Contact Info) Description 08/11/2017 [facility] Encounter Historical OTTR [address] [place] [address] Shara Huff, NATIONAL ACCOUNT REPRESENTATIVE, DNP [address] [facility] [address] [place] [address] Social History Tobacco Use Types Packs/Day Years [...] cirrhosis, actively listed for transplant (at and [facility]), who was admitted on 08/09 with c/o [...] on phone. * Progress Notes - Barry Compliance Monitor - 07/26/2017 10:07 AM EST Spoke to Mr. Stauffer. is unable to work now as he needs more help at home. They are able to paymortgage but having trouble with utility bills. Suggested that he contact [employer] in his county as they are able to help people with utilities. Also advised him to contact his Medicaid Silk Screen Repairer for questions about addition assistance at home. [...] Final R esult Performing Organization Address [facility] de Phone Number EXTERNAL LAB * OTTR LAB RESULTS (MANUAL) (08/09/2017 3:06 PM EST) External Estimated GFR 52.27 EXTERNAL LAB 08/09/2017 3:06 PM EST Narrative EXTERNAL LAB - 08/09/2017 3:48 PM EST Automated LAB Interface Historical Provider LAB BLOOD ORDERABLES Final R esult Performing Organization Address [facility] de Phone Number EXTERNAL LAB * OTTR LAB RESULTS (MANUAL) (08/03/2017 11:29 PM EST) External Estimated GFR 56.45 EXTERNAL LAB 08/03/2017 11:2 9 PM EST Narrative EXTERNAL LAB - 08/04/2017 1:06 AM EST Automated LAB Interface Historical Provider LAB BLOOD ORDERABLES Final R esult Performing Organization Address [facility] de Phone Number EXTERNAL LAB documented in this encounter Visit Diagnoses Not on filedocumented in this encounter Additional Health Concerns Infection Onset Date Last Indicated Resolved Time COVID-19 Rule-Out 11/08/2021 11/08/2021 11/08/2021 8:06 AM EDT documented as of this encounter Care Teams Car Repairer Apprentice Relationship Specialty Start Date End Date Edgar Fournier MD [address] [place] [address] PCP - General 12/25/20 Enrique Griffith MD [address] [place] [address] Referring Physician Nephrology 01/08/21 documented as of this encounter
--- OUTSIDE RECORDS SUMMARY | 2025-06-10 12:52 | XMS_ITS | Encounter Summary ---
Author Organization [facility] Address [address] [place] [address] Care Team Providers Care Holter Scanning Technician Name Role Phone Edgar Fournier MD Primary Care Provider Enrique Griffith MD Unavailable [phone] Encounter Details Date Type Department Care Team (Late st Contact Info) Description 04/30/[address] [facility] [address] [facility] [address] [place] [address] Zion Virgen, RN [id number] [address] [place] [address] Social History Tobacco Use Types Packs/Day Years [...] AM EDT documented as of this encounter Functional Status * Does this person have serious difficulty walking or climbing stairs? Answer Date of Assessment Author No 11/01/2024 10:50 AM EDT * Does this person have difficulty dressing or bathing? Answer Date of Assessment Author No 11/01/2024 10:50 AM EDT * Because of a physical, mental, or emotional condition, does this person have difficulty doing errands alone such as visiting a doctor's office or shopping? Answer Date of Assessment Author No 11/01/2024 10:50 AM EDT documented as of this encounter Miscellaneous Notes * Telephone Encounter - Zion Virgen RN - 04/30/2025 1:34 PM EDT Received call from patient, patient states he's finishing up eval with [facility], still expects to be listed there, states he'd received call from his insurance about authorization here at . Coordinator stated this was likely sent by , stated that coordinator is keeping his eval open if he should decide to continue pursuing eval at (patient had previously indicated desire to focus on listing withUC). Patient verbalized understanding denies further needs at present. documented in this encounter Plan of Treatment Not on file documented as of this encounter Visit Diagnoses Not on filedocumented in this encounter Additional Health Concerns Assessment Noted Time A fall risk assessment has been complete d for the patient 10/31/2024 3:06 PM EDT A Body Mass Index follow-up plan has been documented for the patient 11/01/2024 10:50 AM EDT documented as of this encounter Care Teams Holter Scanning Technician Relationship Specialty Start Date End Date Edgar Fournier MD [address] [place] [address] PCP - General 12/25/20 Enrique Griffith MD [address] [place] [address] Referring Physician Nephrology 01/08/21 documented as of this encounter
--- OUTSIDE RECORDS SUMMARY | 2025-06-10 12:53 | XMS_ITS | Encounter Summary ---
Author Organization [facility] Address [address] [place] [address] Care Team Providers Care Band Sawing Machine Operator Name Role Phone Edgar Fournier MD Primary Care Provider [phone] Enrique Griffith MD Unavailable [phone] Encounter Details Date Type Department Care Team (Late st Contact Info) Description 09/14/2016 [facility] Committee Historical OTTR [address] [place] [address] Provider, Amrit [address] [place] [address] Social History Tobacco Use Types Packs/Day [...] 21, not yet listed, please discuss at [facility] and proceed with listing if insurance concerns [...] says he had EGD this year at [facility]- please obtain reports. Splenic aneurysm: 2.8 cm on recent MRI- will follow up on imaging. DM-2:Has seen Oil Pipeline Dispatcher at yesterday- insulin is adjusted, need better [...] documented as of this encounter Care Teams Band Sawing Machine Operator Relationship Specialty Start Date End Date Edgar Fournier MD [address] [place] [address] PCP - General 12/25/20 Enrique Griffith MD [address] [place] [phone] Referring Physician Nephrology 01/08/21 documented as of this encounter
--- OUTSIDE RECORDS SUMMARY | 2025-06-10 12:53 | XMS_ITS | Clinical Summary ---
Author Organization [facility] Address [address] [facility] [address] [place] [address] Phone Care Team Providers Care Acid Loader Name Role Phone Desire Weldon Unavailable Unavailable Conditions or Problems Problem Name Problem Code Onset Date Status Entry Date Provider Comment Standard Description Annotate Osteomyelitis of vertebra, lumbar region M46.26 (ICD-10-CM ) 0 Active 0 Afshan W Osteomyelitis of vertebra, lumbar region Abscess, epidural 69025180 (SNOMED CT) 0 Active 0 Afshan W Spinal epidural abscess Liver transplant-Imm unocompromised 69679849 (SNOMED CT) 0 Active 005 Afshan W Transplantation of liver Low back pain 270495221 (SNOMED CT) 0 Active 0/ Afshan W Low back pain Hyponatremia 48276577 (SNOMED CT) 0 Active 0/05 Afshan W Hyponatremia Diabetes mellitus, 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) (Z99.2) 348449571 (SNOMED CT) 0 Active 0/05 Afshan W Renal disorder due to type 2 diabetes mellitus SAL K76.0 (ICD-10-CM ) 0 Active 0/05 Afshan W Fatty (change of) liver, not elsewhere classified Anemia, secondary to acute blood loss 930927444 (SNOMED CT) 0/ Active 0/05 Afshan W Acute posthemorrhagic anemia Anemia in chronic kidney disease 439013121 (SNOMED CT) 0 Active 0/05 Afshan W Anemia of chronic disease Acute confusion 401960763 (SNOMED CT) 0 Active Afshan W Acute confusion Weakness 40419822 (SNOMED CT) Active Afshan [place] Asthenia Medications Medication Instructions Start Date Stop Date Generic Name NDC Provider FIRVANQ SOLR 750mg IV Q 48 hrs /// [facility] ()[phone] VANCOMYCIN HCL SOLR [id number] [facility] LINEZOLID 600 MG TABS Take one (1) tablet by mouth twice a day LINEZOLID 48269072443 Cayetano Rodriguez MD FLUCONAZOLE 100 MG TABS Take 1 tablet by mouth daily FLUCONAZOLE [id number] Cayetano Rodriguez MD FIRVANQ SOLR 750mg IV Q 48 hrs /// [facility] ()[phone] 09/21 VANCOMYCIN HCL SOLR [id number] [facility] DOXYCYCLINE MONOHYDRATE 100 MG CAPS one cap bid 08/18 DOXYCYCLINE MONOHYDRATE 40491599876 Cayetano Rodriguez MD VITAMIN D (ERGOCALCIFEROL) 1.25 MG (24982 UT) CAPS once weekly ERGOCALCIFEROL [id number] Lynnette Pantoja ONDANSETRON HCL 4 MG TABS Q8H/PRN ONDANSETRON HCL 46916004388 Lynnette Pantoja NIFEDIPINE ER OSMOTIC RELEASE 90 MG [id number] Take by mouth twice a day NIFEDIPINE 89930968638 Lynnette Quinterosx MYCOPHENOLATE MOFETIL 250 MG CAPS Take by mouth twice a day MYCOPHENOLATE MOFETIL 71807494419 Lynnette Quinterosx METOPROLOL TARTRATE 100 MG TABS Take by mouth twice a day METOPROLOL TARTRATE 57438759559 Lynnette Pantoja HUMULIN N 100 UNIT/ML SUSP Subcutaneous, 2 Times Daily Before Meals, 48 units qam and 15 units qhs INSULIN NPH HUMAN (ISOPHANE) 64312551338 Lynnette Pantoja HYDROXYZINE PAMOATE 25 MG CAPS Take one by mouth daily HYDROXYZINE PAMOATE 33871759051 Lynnette Pantoja HYDRALAZINE HCL 50 MG TABS 300 mg, Oral, 3 Times Daily HYDRALAZINE HCL 71319814792 Lynnette Pantoja GABAPENTIN 800 MG TABS 1,200 mg, Oral, 3 Times Daily GABAPENTIN 19241079843 Lynnette Pantoja FAMOTIDINE 20 MG TABS Take by mouth twice a day/PRN FAMOTIDINE 80144777348 Lynnette Pantoja ENTECAVIR 0.5 MG TABS Take one by mouth daily x 7 days ENTECAVIR 75257698680 Lynnette Vitaledox DOXAZOSIN MESYLATE 8 MG TABS Take one by mouth daily/PRN DOXAZOSIN MESYLATE 37460379473 Lynnette Pantoja CYCLOSPORINE MODIFIED 50 MG CAPS Take by mouth twice a day CYCLOSPORINE MODIFIED 64486579561 Lynnette Pantoja CYCLOBENZAPRINE HCL 10 MG TABS Take one by mouth 3 times daily, morning, afternoon and evening./PRN CYCLOBENZAPRINE HCL 45335772972 Lynnette Pantoja CARBAMAZEPINE 200 MG TABS Take one by mouth daily CARBAMAZEPINE 03340814242 Lynnette Pantoja ADULT ASPIRIN REGIMEN 81 MG ORAL TABLET DELAYED RELEASE Take one by mouth daily ASPIRIN 11529217922 Lynnette Pantoja ALPRAZOLAM 1 MG TABS Take one by mouth daily ALPRAZOLAM 43885779570 Lynnette Vitaledox LISINOPRIL 40 MG TABS Take one by mouth daily LISINOPRIL 70400435346 Lynnette Pantoja HYDROCODONE-ACETAM INOPHEN 5-325 MG TABS Q4H/PRN HYDROCODONE-ACETA MINOPHEN 42932251210 Lynnette Pantoja DOXYCYCLINE HYCLATE 100 MG CAPS Take by mouth twice a day DOXYCYCLINE HYCLATE 28512818618 Lynnette Pantoja FIRVANQ SOLR 750mg IV Q 48 hrs /// [facility] 09/21 VANCOMYCIN HCL SOLR [id number] Genevieve Merrillbbins Medications Administered No information available. Allergies, Adverse Reactions, Alerts No information available. Results Date Name Value Unit Range Flag Description Office Visit: rm 15-tele HFU ORALTOBACUSE Never Tobacco smoking status SMOK STATUS Never smoker Toba accounting support specialist smoking status Clinical Lists Update: WILLIE MEDS [...]
--- OUTSIDE RECORDS SUMMARY | 2025-06-10 12:53 | XMS_ITS | Encounter Summary ---
Author Organization [facility] Address [address] [place] [address] Care Team Providers Care Senior Receptionist Name Role Phone Edgar Fournier MD Primary Care Provider Enrique Griffith MD Unavailable [phone] Encounter Details Date Type Department Care Team (Late st Contact Info) Description 08/30/2016 [facility] Encounter Historical OTTR [address] [place] [address] Bridgett Márquez, RN [facility] [id number] [address] [place] [phone] Social History Tobacco Use Types Packs/Day Years [...] patient. He adv he was admitted to [facility] for pneumonia and possible kidney stones. He is home and feeling a little better. Will request records from [facility]. documented in this encounter Plan of Treatment Not on file documented as of this encounter Visit Diagnoses Not on filedocumented in this encounter Additional Health Concerns Infection Onset Date Last Indicated Resolved Time COVID-19 Rule-Out 11/08/2021 11/08/2021 11/08/2021 8:06 AM EDT documented as of this encounter Care Teams Senior Receptionist Relationship Specialty Start Date End Date Edgar Fournier MD [address] [place] [address] PCP - General 12/25/20 Enrique Griffith MD [address] [place] [address] Referring Physician Nephrology 01/08/21 documented as of this encounter
--- OUTSIDE RECORDS SUMMARY | 2025-06-10 12:53 | XMS_ITS | Encounter Summary ---
Author Organization [facility] Address [address] [place] [address] Care Team Providers Care Biophysics Professor Name Role Phone Edgar Fournier MD Primary Care Provider Enrique Griffith MD Unavailable [phone] Encounter Details Date Type Department Care Team (Late st Contact Info) Description 09/13/2016 [facility] OT[facility] Encounter Historical OTTR [address] [place] [address] Bridgett Márquez, RN [facility] [id number] [address] [place] [address] Social History Tobacco Use Types Packs/Day Years [...] [facility] documented in this encounter Plan of Treatment Not on file documented as of this encounter Visit Diagnoses Not on filedocumented in this encounter Additional Health Concerns Infection Onset Date Last Indicated Resolved Time COVID-19 Rule-Out 11/08/2021 11/08/2021 11/08/2021 8:06 AM EDT documented as of this encounter Care Teams Biophysics Professor Relationship Specialty Start Date End Date Edgar Fournier MD [address] [place] [address] PCP - General 12/25/20 Enrique Griffith MD [address] [place] [address] Referring Physician Nephrology 01/08/21 documented as of this encounter
--- OUTSIDE RECORDS SUMMARY | 2025-06-10 12:54 | XMS_ITS | Encounter Summary ---
Author Organization [facility] Address [address] [place] [address] Care Team Providers Care General Manager [employer] Name Role Phone Maile Valles RN Unavailable Unavail able Jack Ordoñez MD Unavailable [phone] Estephania Sharif PharmD Unavailable Christine Edgar Tolentino MD Primary Care Provider [phone] Source Comments This information has been disclosed [...] release of HIV test results or diagnoses. [id number] Health Encounter Details Date Type Department Care Team (Late st Contact Info) Description 05/09/2025 Telephone [facility] Kidney Transplant at [address] [place] [address] Stan Moise, RN Social History Tobacco Use Types Packs/Day Years Used Date Smoking Tobacco: Never Smokeless Tobacco: Never Alcohol Use Standard Drinks/Week Comments Never 0 (1 standard drink = 0.6 oz pur e alcohol) Utilities Answer Date Recorded In the past 12 months has th e electric, gas, oil, or water [employer] threatened to shut off services in your [...] any time in the past 12 [facility], were you homeless or living in a assisted (including now)? No 12/03/2024 Yearly Questionnaire Answer [...] Progress Notes * Stan Moise RN - 05/09/2025 2:25 PM EDT Called and spoke to Aiden about need for US to evaluate for clots in neck and chest. Voiced understanding. No questions asked. Orders entered and message sent to [place] to schedule. documented in this encounter Plan of Treatment Upcoming Encounters Date Type Department Care Team (Latest Contact Info) Description 06/12/2025 1:59 PM EDT Hospital Encounter [facility] Cardiac Junior Recruiter [address] [place] [address] Cuong Dobson MD [address] [place] [phone] Essential (primary) hypertension; Type 2 diabetes 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, with long-term current use of insulin ([facility]); ESRD (end stage renal disease) on dialysis ([facility]); Pre-transplant evaluation for kidney transplant; High risk surgery, pre-operative cardiovascular examination 06/12/2025 1:59 PM EDT - 06/12/2025 3:00 PM EDT Surgery [facility] Cardiac Junior Recruiter [address] [place] [phone] Cuong Dobson MD [address] [place] [address] [place] [phone] Left and Right Heart Cath documented as of this encounter Visit Diagnoses Not on filedocumented in this encounter Additional Health Concerns Assessment Noted Time PHQ-9 Depression Total Score: 0 12/06/19 18 3:00 PM EDT documented as of this encounter Care Teams General Manager [employer] Relationship Specialty Start Date End Date Edgar Fournier MD [address] [place] [address] [place] [address] PCP - General 12/22/21 Maile Valles, JANA Txp Post Coordinator Transplant Hepatology 11/07/17 Jack Ordoñ[place] [address] [place] [phone] Consulting Physician Transplant Hepatology 01/05/18 Estephania Sharif, PharmD Pharmacist Pharmacist 11/11/19 documented as of this encounter
--- OUTSIDE RECORDS SUMMARY | 2025-06-10 12:54 | XMS_ITS | Encounter Summary ---
Author Organization [facility] Address [address] [place] [address] Care Team Providers Care Electrical Engineer Mep Name Role Phone Edgar Fournier MD Primary Care Provider [phone] Enrique Griffith MD Unavailable [phone] Encounter Details Date Type Department Care Team (Late st Contact Info) Description 07/25/2016 Legacy OTTR Encounter Historical OTTR [address] [place] [address] Provider, Amrit [address] [place] [address] Social History Tobacco Use Types Packs/Day Years Used Date Smoking Tobacco: Never Assessed Sex and Gender Information Value Date Recorded Sex Assigned at Not on file Legal Sex Male 6:10 PM EDT Gender Identity Not on file Sexual Orientation Straight 03/02/2021 10 :04 AM EDT documented as of this encounter Miscellaneous Notes * Progress Notes - Provider, MD Amrit - 07/25/2016 10:30 AM EST Talked to [...] to RTC 09-21-16 at 840. Orders in [facility]. Patient MELD Score 18, updated in [facility]. * Progress Notes - Bridgett Márquez - 07/21/2016 9:38 AM EST Rec'd ph call from patient. He advised he tried to pick and shovel man the pantoprazole that AG prescribed yesterday, but [...] He adv he was in ED at [facility] yesterday. He advised he fell and hit his head. They checked him out and sent him home. Will see if they luis alberto the labs I need. Phd Brand Comm- they will fax over records. * Progress Notes - Bridgett Márquez - 06/29/2016 1:13 PM EST Rec'd ph call from Nadya at [facility]. Patient auth recieved for transplant. PA # [id number]. Good from 06-27-2016 until patient has transplant. [...] reports being in severe pain since Juan Albertotraci Ansari took him off Flexeril andXananflex yesterday [...] Márquez - 06/07/2016 10:54 AM EDT Phd [facility]-s/w Nadya, she adv ABG not drawn. Patient [...] Rec'd ph call from Dr. Olmedo at [facility]. Patient admitted for HE. No signs of infection. Patient will not be able to make ABG tomorrow. They will draw ABG while he is inpatient. * Progress Notes - Bridgett Márquez - 06/02/2016 12:19 PM EDT Rec'd EGD [facility], [facility] * Progress Notes - Bridgett Márquez - 06/02/2016 11:39 AM EDT Patient scheduled for 06-07-16 at 10 am for ABG. Needs to go to PFT lab on 5th floor. Phd patient-s/w Aiden, he understood. * Progress Notes - DustyCristal - 06/02/2016 11:32 AM EDT Pt is scheduled for ABG only on 06/07 at 10:00am. Pt will need to arrive at [facility] on the 5th fl of [place]. [facility] to notify pt. * Progress Notes - Bridgett Márquez - 06/02/2016 9:47 AM EDT Need to obtain copy of EGD from [facility]. Phd [facility]-s/w Heather, she will fax records to me. * Progress Notes - Bridgett Márquez - 06/02/2016 9:44 AM EDT Reviewed notes, patient still needs to have ABG for evaluation. ORders in [facility], msg to AG to schedule NIELS/ * Progress Notes - Bridgett Márquez - 05/23/2016 11:21 AM EDT Rec'd ph call from patient. He advised he has been released from [facility]. He adv hewas not happy with the treatment he had at the hospital, and is still feeling a little run down. Headv he is going to see PCP today. * Progress Notes - Bridgett Márquez - 05/19/2016 2:11 PM EDT Rec'd ph call from patient. He advised he was admitted to [facility] on Monday for elevated pneumonia. They are also treating him for elevated BS, possible kidney infection. * Progress Notes - Bridgett Márquez - 05/19/2016 2:07 PM EDT Rec'd msg from patient that he was in ED at [facility]. Phd patient cell- unable to leave a message. * Progress Notes - Bridgett Márquez - 05/17/2016 10:22 AM EDT Awaiting hepatology visit on 06-01 and endocrinology visit on 05-31 * Progress Notes - George November - 05/12/2016 11:08 AM EDT Patient scheduled for labs/hep on 06/01 arriving at 7:00am. [facility] to advise patient of time and date.Reminder mailed to patient for review. * Progress Notes - Bridgett Márquez - 05/12/2016 9:27 AM EDT Patient scheduled tommorrow for MRI at 9:30. Needs to arrive at 9:00 at [facility], NPO after midnight. Still need to schedule f-up with hepatology and ABG. Msg to AG to schedule. * Progress Notes - Vazquez November - 05/09/2016 8:38 AM EDT From [...] 05/04/2016 11:39 AM EDT Rec'd labs from [facility]. Pt MELD score is 18. Phd patient again- no answer. * Progress Notes - Bridgett Márquez - 05/04/2016 9:23 AM EDT Phd patient- no answer. Phd [facility]- s/w lab, they will fax me results. * Progress Notes - Bridgett Márquez - 05/03/2016 10:45 AM EDT Rec'd ph call from patient. He advised he has been feeling weak and dehydrated and would like to goto the ED at [facility]. I advised I will fax lab order. He understood. * Progress Notes - Bridgett Márquez - 05/02/2016 5:17 PM EDT Patient scheduled endocrinology appt 05-31-16 at 11:00am. Need Urgent MRI abdomen, orders in [facility], msg to AG to schedule. Need to [...] socially cleared for listing. Full report in [facility]. * Progress Notes - Bridgett Márquez - [...] 04/29. Will attempt to send schedule via [facility] Priority Mail Tracking No [id number] with another package at assistant front end manager. He verbalized understanding. * Progress Notes - Bridgett Márquez - 04/25/2016 7:26 PM EDT Per committee decision, patient to have RAPID evaluation. Msg to AG to schedule * Progress Notes - Bridgett Márquez - 04/22/2016 2:[address] Ortega [phone]-s/w information clerk cashier, she will fax report to my attention. * Progress Notes - ProviderAmrit MD - 04/22/2016 12:15 PM EDT FC letter added to all docs. * Progress Notes - ProviderAmrit MD - 04/21/2016 2:49 PM EDT received call from pt stating he had ECHO at Dr. Ortega office today. They read this afternoon and the phone# for us to call and get this report is [phone]. Pt has disc of the ECHO and will bringwith him to appt in the morning tomorrow, 04-22-16 but will not have the report to accompany. Note to Honorio Gamez to f/u and get what is needed for dr george tomorrow. * Progress Notes - Vera Rosales [...] EDT Mr Stauffer saw Dr Ortega in [place] for sleep apnea consult - they did [...] recommendation on how to proceed.Request sent to [facility] for review. * Progress Notes - [...] - 10/05/2015 9:[address] Cahuhan office for updated - they have not seen him since July. * Progress Notes - Vera Rosales E - 10/05/2015 9:40 AM EST Spoke to Mr Stauffer - confirmed his appointment with AG at [facility] on 10/08 at 2pm. He is concernedas his labs are showing some significant changes. Discussed him coming to ED if he needs to but keeping the appt with AG as she will best determine poc at this time. He agreed. [facility] had [facility] his [facility]. [...] 07/20/2016 9:52 AM EST Automated LAB Interface us Historical [...] EXTERNAL LAB - 07/01/2016 1:11 PM EST [facility] us Historical Provider LAB BLOOD ORDERABLES [...] EXTERNAL LAB - 06/30/2016 10:19 AM EST [facility] Historical Provider LAB BLOOD ORDERABLES Final R esult Performing Organization Address [facility] de Phone Number EXTERNAL LAB * OTTR LAB RESULTS (MANUAL) (06/21/2016 9:24 AM EST) Pathologist [facility] External Estimated GFR 71.25 EXTERNAL LAB 06/21/2016 9:24 AM EST Narrative EXTERNAL LAB - 06/21/2016 10:47 AM EST Automated LAB Interface Historical Provider LAB BLOOD ORDERABLES Final R esult Performing Organization Address [facility] Co de Phone Number EXTERNAL LAB * OTTR LAB RESULTS (MANUAL) (06/03/2016 9:19 PM EDT) Pathologist [facility] External Estimated GFR 97.11 EXTERNAL LAB 06/03/2016 9:19 PM EDT Narrative EXTERNAL LAB - 06/03/2016 9:59 PM EDT Automated LAB Interface Historical Provider LAB BLOOD ORDERABLES Final R esult Performing Organization Address City/[facility]/ZIP Co de Phone Number EXTERNAL LAB * OTTR LAB RESULTS (MANUAL) (06/01/2016 7:45 AM EDT) External Estimated GFR 79.69 EXTERNAL LAB 06/01/2016 7:45 AM EDT Narrative EXTERNAL LAB - 06/01/2016 8:49 AM EDT Automated LAB Interface Historical Provider LAB BLOOD ORDERABLES Final R esult EXTERNAL LAB * OTTR LAB RESULTS (MANUAL) (05/03/2016 3:36 PM EDT) External WBC 2.9 k/uL EXTERNAL LAB External [...] EXTERNAL LAB - 05/04/2016 11:38 AM EDT [facility] us Historical Provider LAB BLOOD ORDERABLES Final R esult EXTERNAL LAB * OTTR LAB RESULTS (MANUAL) (04/28/2016 10:50 AM EDT) External Estimated GFR 97.11 EXTERNAL LAB 04/28/2016 10:5 0 AM EDT Narrative EXTERNAL LAB - 04/28/2016 12:43 PM EDT Automated LAB Interface us Historical Provider LAB BLOOD ORDERABLES Final R esult Performing Organization Address City/[facility] Co de Phone Number EXTERNAL LAB * OTTR LAB RESULTS (MANUAL) (04/22/2016 7:55 AM EDT) External Estimated GFR 95.89 EXTERNAL LAB 04/22/2016 7:55 AM EDT Narrative EXTERNAL LAB - 04/22/2016 9:13 AM EDT Automated LAB Interface us Historical Provider LAB BLOOD ORDERABLES Final R esult Performing Organization Address [facility] Co de Phone Number EXTERNAL LAB * OTTR LAB RESULTS (MANUAL) (03/16/2016 11:08 AM EDT) External Estimated GFR 90.21 EXTERNAL LAB 03/16/2016 11:0 8 AM EDT Narrative EXTERNAL LAB - 03/16/2016 11:45 AM EDT Automated LAB Interface Historical Provider LAB BLOOD ORDERABLES Final R esult Performing Organization Address [facility] Co de Phone Number EXTERNAL LAB * OTTR LAB RESULTS (MANUAL) (10/08/2015 3:55 PM EST) External Estimated GFR 92.41 EXTERNAL LAB 10/08/2015 3:55 PM EST Narrative EXTERNAL LAB - 10/12/2015 8:01 AM EST Automated LAB Interface Historical Provider LAB BLOOD ORDERABLES Final R esult Performing Organization Address [facility] Co de Phone Number EXTERNAL LAB documented in this encounter Visit Diagnoses Not on filedocumented in this encounter Additional Health Concerns Infection Onset Date Last Indicated Resolved Time COVID-19 Rule-Out 11/08/2021 11/08/2021 11/08/2021 8:06 AM EDT documented as of this encounter Care Teams Electrical Engineer Mep Relationship Specialty Start Date End Date Edgar Fournier MD [address] [place], [place] [id number] PCP - General 12/25/20 Enrique Griffith MD [address] [place] [phone] Referring Physician Nephrology 01/08/21 documented as of this encounter
--- OUTSIDE RECORDS SUMMARY | 2025-06-10 12:54 | XMS_ITS | Encounter Summary ---
Author Organization [facility] Address [address] [place] [address] Care Team Providers Care Information Technology Specialist Name Role Phone Maile Valles RN Unavailable Unavail able Jack Ordoñez MD Unavailable [phone] Estephania Sharif PharmD Unavailable Christine Edgar Tolentino MD Primary Care Provider [phone] Source Comments This information has been disclosed [...] release of HIV test results or diagnoses. [id number] Encounter Details Date Type Department Care Team (Late st Contact Info) Description 05/02/2025 Chart Note [facility] Kidney Transplant at [place] [id number] [facility] [address] [place] [address] Stan Moise, JANA Chart reviewed following recent completed testing. Completed testing Social History Tobacco Use Types Packs/Day Years Used Date Smoking Tobacco: Never Smokeless Tobacco: Never Alcohol Use Standard Drinks/Week Comments Never 0 (1 standard drink = 0.6 oz pur e alcohol) Utilities Answer Date Recorded In the past 12 months has th e iOculi, gas, oil, or water company threatened to [...] time in the past 12 m [facility], were you homeless or living in a usp (including now)? No 12/03/2024 Yearly Questionnaire Answer [...] Progress Notes * Stan Moise RN - 05/02/2025 3:03 PM EDT Chart reviewed following recent completed testing. Completed testing results added to chart. Echo added Evaluation pending: PCP Dental L/R Cath - message to Iman Mayen requesting Cath. CXR documented in this encounter Plan of Treatment Upcoming Encounters Date Type Department Care Team (Latest Contact Info) Description 06/12/2025 1:59 PM EDT Hospital Encounter [facility] Cardiac Soap Drier Operator [address] [place] [address] Cuong Dobson MD [address] [place] [address] [place] [phone] Essential (primary) hypertension; Type 2 diabetes 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, with long-term current use of insulin ([facility]); ESRD (end stage renal disease) on dialysis ([facility]); Pre-transplant evaluation for kidney transplant; High risk surgery, pre-operative cardiovascular examination 06/12/2025 1:59 PM EDT - 06/12/2025 3:00 PM EDT Surgery [facility] Cardiac Soap Drier Operator [address] [place] [address] Cuong Dobson MD [address] [facility] [place] [phone] Left and Right Heart Cath documented as of this encounter Visit Diagnoses Not on filedocumented in this encounter Additional Health Concerns Assessment Noted Time PHQ-9 Depression Total Score: 0 12/06/19 18 3:00 PM EDT documented as of this encounter Care Teams Information Technology Specialist Relationship Specialty Start Date End Date Edgar Fournier MD [address] [place] [address] [place] [address] PCP - General 12/22/21 Maile Valles, JANA Txp Post Coordinator Transplant Hepatology 11/07/17 Jack Ordoñez MD [address] [place] [phone] Consulting Physician Transplant Hepatology 01/05/18 Estephania Sharif, Wilbert Pharmacist Pharmacist 11/11/19 documented as of this encounter
--- OUTSIDE RECORDS SUMMARY | 2025-06-10 12:54 | XMS_ITS | Encounter Summary ---
Author Organization [facility] Address [address] [place] [address] Care Team Providers Care Restaurant Service Manager Name Role Phone Maile Valles RN Unavailable Unavail able Jack Ordoñez MD Unavailable [phone] Estephania Sharif PharmD Unavailable Christine Edgar Tolentino MD Primary Care Provider [phone] Source Comments This information has been disclosed [...] release of HIV test results or diagnoses. [id number] Encounter Details Date Type Department Care Team (Late st Contact Info) Description 05/12/2025 Telephone [facility] Kidney Transplant at [address] [place] [address] Genny Campos MA Social History Tobacco Use Types Packs/Day Years Used Date Smoking Tobacco: Never Smokeless Tobacco: Never Alcohol Use Standard Drinks/Week Comments Never 0 (1 standard drink = 0.6 oz pur e alcohol) Utilities Answer Date Recorded In the past 12 months has th e electric, gas, oil, or water [employer] threatened to shut off services in your [...] any time in the past 12 m [facility], were you homeless or living in a mcfp (including now)? No 12/03/2024 Yearly Questionnaire Answer [...] encounter Miscellaneous Notes * Telephone Encounter - Genny Campos MA - 05/12/2025 8:39 AM EDT Went to schedule this patient's Ultrasounds for the neck and chest and was advised by central scheduling that the nurse will have to call Radiology to clarify the indication for both of these test's since they both have the same diagnosis. Forwarded this info to this patient's coordinator Wilder to look into. PH # for Radiology is [phone]. documented in this encounter Plan of Treatment Upcoming Encounters Date Type Department Care Team (Latest Contact Info) Description 06/12/2025 1:59 PM EDT Hospital Encounter [facility] Cardiac Tso [address] [place] [address] Cuong Dobson MD [address] [place] [address] [place] [phone] Essential (primary) hypertension; Type 2 diabetes 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, with long-term current use of insulin ([facility] ESRD (end stage renal disease) on dialysis ([facility]); Pre-transplant evaluation for kidney transplant; High risk surgery, pre-operative cardiovascular examination 06/12/2025 1:59 PM EDT - 06/12/2025 3:00 PM EDT Surgery [facility] Cardiac Tso [address] [place] [phone] Cuong Dobson MD [address] [facility] [place] [address] Left and Right Heart Cath documented as of this encounter Visit Diagnoses Not on filedocumented in this encounter Additional Health Concerns Assessment Noted Time PHQ-9 Depression Total Score: 0 12/06/19 18 3:00 PM EDT documented as of this encounter Care Teams Restaurant Service Manager Relationship Specialty Start Date End Date Edgar Fournier MD [address] [place] [address] [place] [address] PCP - General 12/22/21 Maile Valles, RN Txp Post Coordinator Transplant Hepatology 11/07/17 Jack Ordoñez MD [address] [place] [phone] Consulting Physician Transplant Hepatology 01/05/18 Estephania Sharif, DarrianD Pharmacist Pharmacist 11/11/19 documented as of this encounter
--- OUTSIDE RECORDS SUMMARY | 2025-06-10 12:54 | XMS_ITS | Encounter Summary ---
Author Organization [facility] Address [address] [place] [address] Care Team Providers Care Drum Sprayer Name Role Phone Maile Valles RN Unavailable Unavail able Jack Ordoñez MD Unavailable [phone] Estephania Sharif PharmD Unavailable Christine Edgar Tolentino MD Primary Care Provider [phone] Source Comments This information has been disclosed [...] release of HIV test results or diagnoses. 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 No 11/05/2023 Housing Stability Vital Sign Answer Gilbert e Recorded In the last 12 months, was t here a time when you were not able to pay the mortgage or rent on time? No 12/03/2024 In the past 12 months, how m any times have you moved where you were living? 0 12/03/2024 At any time in the past 12 m [facility], were you homeless or living in a fdc (including now)? No 12/03/2024 Yearly Questionnaire Answer [...] Description 06/12/2025 1:59 PM EDT Hospital Encounter [facility] Cardiac [employer] [address] [place] [phone] Cuong Dobson MD [address] [place] [address] [place] [phone] Essential (primary) hypertension; Type 2 diabetes 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, with long-term current use of insulin ([facility] ESRD (end stage renal disease) on dialysis ([facility] Pre-transplant evaluation for kidney transplant; High risk surgery, pre-operative cardiovascular examination 06/12/2025 1:59 PM EDT - 06/12/2025 3:[address] [facility] Cardiac [employer] [address] [place] [phone] Cuong Dobson MD [address] [place] [address] [place] [phone] Left and Right Heart Cath documented as of this encounter Visit Diagnoses Diagnosis Type 2 diabetes 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, with long-term current use of insulin ([facility] Primary ESRD (end stage renal disease) on [...] on dialysis ([facility]) End stage renal disease Pre-transplant evaluation for kidney transplant High risk surgery, pre-operative cardiovascular examination Pre-operative cardiovascular examination documented in this encounter Additional Health Concerns Assessment Noted Time PHQ-9 Depression Total Score: 0 12/06/19 18 3:00 PM EDT documented as of this encounter Care Teams Drum Sprayer Relationship Specialty Start Date End Date Edgar Fournier MD [address] [place] [address] [place] [phone] PCP - General 12/22/21 Maile Valles, JANA Txp Post Coordinator Transplant Hepatology 11/07/17 Jack Ordoñez MD [address] [place] [phone] Consulting Physician Transplant Hepatology 01/05/18 Estephania Sharif, Wilbert Pharmacist Pharmacist 11/11/19 documented as of this encounter
--- OUTSIDE RECORDS SUMMARY | 2025-06-10 12:54 | XMS_ITS | Encounter Summary ---
Author Organization [facility] Address [facility] [place] [address] Care Team Providers Care Yarn Dumper Name Role Phone Maile Valles RN Unavailable Unavail able Jack Ordoñez MD Unavailable [phone] Estephania Sharif PharmD Unavailable Christine miguelilaEdgar Azar MD Primary Care Provider [phone] Source Comments This information has been disclosed [...] release of HIV test results or diagnoses. [id number] Reason for Referral * Imaging/Cardiovascular Scan (Routine) - New Request Specialty Diagnoses / Procedures Referred By Contac t Referred To Contact Vascular Diagnoses Blood clot of neck vein Procedures Venous Duplex UE Bilateral Lianet Mayen, RAMON [address] [place] [address] Phone: tel: fax: Referral ID Status Reason Start Date Expiration Date V isits Requested Visits Authorized [id number] New Request 05/16/2025 11/12/2025 1 1 Reason for Visit * Reason Comments Orders Order Clarification Request Encounter Details Date Type Department Care Team (Arsen santana Contact Info) Description 05/09/2025 Telephone [facility] Cardiology at [place] [facility] [address] [facility] [address] [place] [phone] Lianet Mayen CNP [address] [place] [address] Orders (Order Clarification Request ) Social History Tobacco Use Types Packs/Day Years Used Date Smoking Tobacco: Never Smokeless Tobacco: Never Alcohol Use Standard Drinks/Week Comments Never 0 (1 standard drink = 0.6 oz pur e alcohol) Utilities Answer Date Recorded In the past 12 months has th e [employer], gas, oil, or water [employer] threatened to shut off services in your [...] any time in the past 12 m [facility], were you homeless or living in a senior living (including now)? No 12/03/2024 Yearly Questionnaire Answer [...] as of this encounter Progress Notes * Teresa Ochoa RN - 05/16/2025 1:19 PM EDTAddended by: TERESA OCHOA on: 05/16/2025 01:19 PM Modules accepted: Orders documented in this encounter Miscellaneous Notes * Telephone Encounter - Teresa Ochoa RN - 05/16/2025 1:18 PM EDT Faxed new order over. Returned call and LVM. Patient notified. * Telephone Encounter - Sonja Brar MA - 05/15/2025 9:15 AM EDT Yana is calling to follow up on this encounter. Please call [phone] just ask for Yana. * Telephone Encounter - Teresa Ochoa RN - 05/13/2025 12:29 PM EDT Spoke with Maru. Per Lianet orders need to stay the same. Indication is to check if his venous clots are gone. * Telephone Encounter - Ayde Lind MA - 05/13/2025 8:39 AM EDT Maru with [facility] called to ask that the US be reordered and re-faxed. States that the way it is ordered is asking for 3 separate ultrasounds to be scheduled. States it needs to be ordered as bilateral, upper extremity, arterial to avoid having to see the ptmore than once for US. Fax it to [phone]. Maru can be reached at [phone] if needed. * Telephone Encounter - Teresa Ochoa RN - 05/09/2025 3:46 PM EDT Orders faxed as requested * Telephone Encounter - Maru David MA - 05/09/2025 3:35 PM EDT Pt called requesting the following order be faxed. Order: US Destination: [facility] Fax#: [phone] Pt can be reached at [phone] (M) . documented in this encounter Plan of Treatment Upcoming Encounters Date Type Department Care Team (Latest Contact Info) Description 06/12/2025 1:59 PM EDT Hospital Encounter [facility] Cardiac Flower Arranger [address] [place] [address] Cuong Dobson MD [address] [place] [address] [place] [phone] Essential (primary) hypertension; Type 2 diabetes 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, with long-term current use of insulin ([facility]); ESRD (end stage renal disease) on dialysis ([facility]); Pre-transplant evaluation for kidney transplant; High risk surgery, pre-operative cardiovascular examination 06/12/2025 1:59 PM EDT - 06/12/2025 3:00 PM EDT Surgery [facility] Cardiac Flower Arranger [address] [place] [phone] Cuong Dobson MD [address] [place] [phone] Left and Right Heart Cath Scheduled Orders Name Type Priority Associated Diagnoses Orde r Schedule Venous Duplex UE Bilateral Imaging Routine Blood clot of neck vein 1 Occurrences starting 05/16/2025 until 05/16/2026 documented as of this encounter Visit Diagnoses Diagnosis Blood clot of neck vein- Primary Essential (primary) hypertension Unspecified essential hypertension Type 2 diabetes 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, with long-term current use of insulin ([facility]) ESRD (end stage renal disease) on dialysis ([facility]) End stage renal disease Pre-transplant evaluation for kidney transplant High risk surgery, pre-operative cardiovascular examination Pre-operative cardiovascular examination Essential (primary) hypertension Unspecified essential hypertension Type 2 diabetes 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, with long-term current use of insulin ([facility]) ESRD (end stage renal disease) on dialysis ([facility]) End stage renal disease Pre-transplant evaluation for kidney transplant High risk surgery, pre-operative cardiovascular examination Pre-operative cardiovascular examination documented in this encounter Additional Health Concerns Assessment Noted Time PHQ-9 Depression Total Score: 0 12/06/19 18 3:00 PM EDT documented as of this encounter Care Teams Yarn Dumper Relationship Specialty Start Date End Date Edgar Fournier MD [address] [place] [address] [place] [address] PCP - General 12/22/21 Maile Valles, JANA Txp Post Coordinator Transplant Hepatology 11/07/17 Jack Ordoñez MD [address] [place] [address] Consulting Physician Transplant Hepatology 01/05/18 Estephania Sharif, DarrianD Pharmacist Pharmacist 11/11/19 documented as of this encounter
--- OUTSIDE RECORDS SUMMARY | 2025-06-10 12:54 | XMS_ITS | Encounter Summary ---
Author Organization [facility] Address [address] [place] [address] Care Team Providers Care Biochemist Name Role Phone Maile Valles RN Unavailable Unavail able Jack Ordoñez MD Unavailable [phone] Estephania Sharif PharmD Unavailable Christine Edgar Tolentino MD Primary Care Provider [phone] Source Comments This information has been disclosed [...] release of HIV test results or diagnoses. [id number] Reason for Visit * Reason Comments Orders Order Clarification Request Encounter Details Date Type Department Care Team (Late st Contact Info) Description 05/16/2025 Telephone [facility] Cardiology at [facility] [address] [place] [address] Lianet Mayen CNP [address] [address] Orders (Order Clarification Request ) [...] in a long term (including now)? No 12/03/2024 Yearly Questionnaire Answer [...] encounter Miscellaneous Notes * Telephone Encounter - Betty Fox RN - 05/26/2025 3:00 PM EDT Called meg back - she stated she needs prior auth. * Telephone Encounter - Ayde Lind MA - 05/26/2025 1:17 PM EDT Meg called requesting to thiago with Betty Fox RN. Please reach back out to her at [phone]. * Telephone Encounter - Betty Fox RN - 05/16/2025 2:16 PM EDT Called back and LVM. * Telephone Encounter - Johnnie Lozano MA - 05/16/2025 2:11 PM EDT Meg called requesting to thiago with Betty Fox RN on the following order: Order: US Clarification needed: States she is still missing a part of the order. Please return call to [phone]. documented in this encounter Plan of Treatment Upcoming Encounters Date Type Department Care Team (Latest Contact Info) Description 06/12/2025 1:59 PM EDT Hospital Encounter [facility] Cardiac Network Relay Tester [address] [place] [phone] Cuong Dobson MD [address] [facility] [place] [phone] Essential (primary) hypertension; Type 2 diabetes 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, with long-term current use of insulin ([facility] ESRD (end stage renal disease) on dialysis ([facility]); Pre-transplant evaluation for kidney transplant; High risk surgery, pre-operative cardiovascular examination 06/12/2025 1:59 PM EDT - 06/12/2025 3:00 PM EDT Surgery [facility] Cardiac Network Relay Tester [facility] [place] [phone] Cuong Dobson MD [address] [place] [address] [place] [phone] Left and Right Heart Cath documented as of this encounter Visit Diagnoses Not on filedocumented in this encounter Additional Health Concerns Assessment Noted Time PHQ-9 Depression Total Score: 0 12/06/19 18 3:00 PM EDT documented as of this encounter Care Teams Biochemist Relationship Specialty Start Date End Date Edgar [place] [address] PCP - General 12/22/21 Maile Valles, JANA Txp Post Coordinator Transplant Hepatology 11/07/17 Jack Ordoñez MD [facility] [place] [phone] Consulting Physician Transplant Hepatology 01/05/18 Estephania Sharif, DarrianD Pharmacist Pharmacist 11/11/19 documented as of this encounter
--- OUTSIDE RECORDS SUMMARY | 2025-06-10 12:54 | XMS_ITS ---
Author Organization [facility] Address [address] [place] [address] Care Team Providers Care Coal Shooter Name Role Phone Edgar Fournier MD Primary Care Provider [phone] Enrique Griffith MD Unavailable [phone] Transplant Episode Kidney Candidate [facility] ([place], [place]) [facility] Evaluation began on 02/04/2021 Marked as Active on 02/04/2021 Reason: Undergoing Evaluation Testing Kidney CoordinatorZion Virgen RN Fax: N/A Email: N/A Scores Score Value Updated Exceptions/Reas ons CPRA Not available EPTS (Calc) 80 06/10/2025 [place] Organ Diagnosis Organ Primary Contributory Kidney Diabetes Mellitus - Type II Care Team Name Role Phone Fax Email Zion Virgen RN Kidney Coordinator [phone] N/A N/A Jocelyn Conway LCSW Scenario Writer [phone] N/A N/A Enrique Millan MD Referring Physician [phone] N/A Events Pre-Transplant Referred: 01/08/2021 Evaluation began: 02/04/2021 Committee: 11/05/2024 Dialysis History Dialysis History Start End Type Comments Center 01/16/2023 [facility] 09/26/2019 Hemodialysis MWF [facility] Dialysis Center Information Center Phone Fax Address [facility] [phone] [employer] [facility] [address] [facility] [address] [facility] [phone] [address] [facility] [address]
--- OUTSIDE RECORDS SUMMARY | 2025-06-10 12:54 | XMS_ITS | Encounter Summary ---
Author Organization [facility] Address [address] [place] [address] Care Team Providers Care Certified Nursing Assistant Instructor Name Role Phone Maile Valles RN Unavailable Unavail able Jack Ordoñez MD Unavailable [phone] Estephania Sharif PharmD Unavailable Christine Edgar Tolentino MD Primary Care Provider [phone] Source Comments This information has been disclosed [...] release of HIV test results or diagnoses. [id number] Health Encounter Details Date Type Department Care Team (Late st Contact Info) Description 05/09/2025 Orders Only [facility] Kidney Transplant at [place] [address] [facility] [address] [place] [address] Stan Moise, RN Type 2 diabetes 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, with long-term current use of insulin ([facility]) (Primary Dx); ESRD (end stage renal disease) on dialysis ([facility]); Pre-transplant evaluation for kidney transplant Social History [...] any time in the past 12 m [facility], were you homeless or living in a alf (including now)? No 12/03/2024 Yearly Questionnaire Answer [...] Description 06/12/2025 1:59 PM EDT Hospital Encounter [facility] Cardiac Golf Course Designer [address] [place] [phone] Cuong Dobson MD [address] [place] [address] [place] [phone] Essential (primary) hypertension; Type 2 diabetes 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, with long-term current use of insulin ([facility]); ESRD (end stage renal disease) on dialysis ([facility]); Pre-transplant evaluation for kidney transplant; High risk surgery, pre-operative cardiovascular examination 06/12/2025 1:59 PM EDT - 06/12/2025 3:00 PM EDT Surgery [facility] Cardiac Golf Course Designer [address] [place] [phone] Cuong Dobson MD [address] [place] [address] [place] [phone] Left and Right Heart Cath documented as of this encounter Visit Diagnoses Diagnosis Type 2 diabetes 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, with long-term current use of insulin ([facility] Primary ESRD (end stage renal disease) on [...] stage renal disease) on dialysis ([facility]) End stage renal disease Pre-transplant evaluation for kidney transplant High risk surgery, pre-operative cardiovascular examination Pre-operative cardiovascular examination documented in this encounter Additional Health Concerns Assessment Noted Time PHQ-9 Depression Total Score: 0 12/06/19 18 3:00 PM EDT documented as of this encounter Care Teams Certified Nursing Assistant Instructor Relationship Specialty Start Date End Date Edgar Fournier MD [address] [place] [address] [place] [phone] PCP - General 12/22/21 Maile Valles, JANA Txp Post Coordinator Transplant Hepatology 11/07/17 Jack Ordoñez MD [address] [place] [address] Consulting Physician Transplant Hepatology 01/05/18 Estephania Sharif, Wilbert Pharmacist Pharmacist 11/11/19 documented as of this encounter
[2025-06-10 13:03] LABS: INR 1.06 (0.9-1.1); Prothrombin Time 11.7 seconds (10.1-12.5)
== END 2025-06-10 23:59 | disposition home or self-care (01) ==
LOC: LAB 12:40
PROVIDERS: PCP Family Medicine; Visit Provider Nurse Practitioner Family
DX: Z01.812 Encounter for preprocedural laboratory examination (principal); E11.22 Type 2 diabetes mellitus with diabetic chronic kidney disease; I12.0 Hypertensive chronic kidney disease with stage 5 chronic kidney disease or end stage renal disease; N18.6 End stage renal disease; Z79.4 Long term (current) use of insulin; Z99.2 Dependence on renal dialysis
CPT/HCPCS: 36415; 85610

== ENCOUNTER 2025-06-30 13:25 | Outpatient (CLI) | payer MEDICARE, MEDICAID, SELFPAY ==
--- NOTE | 2025-06-30 13:30 | XR_ITS ---
FINAL REPORT TECHNIQUE: Chest PA & Lateral CLINICAL HISTORY: SOB states xray is for kidney transplant COMPARISON: 10/17/2023 FINDINGS: 2 views of the chest were performed. The heart size is normal. Left-sided IJ dialysis catheter is present with the tip in the SVC. The mediastinum is within normal limits. There is no acute cardiopulmonary process. There are no pleural effusions. There is no pneumothorax. The bony thorax appears intact. IMPRESSION: No acute cardiopulmonary process. Reviewed, Interpreted and Dictated by Dylan Monk MD Transcribed by Judi Virgen Authenticated and [facility]
== END 2025-06-30 23:59 | disposition home or self-care (01) ==
LOC: RAD 13:27
PROVIDERS: PCP Family Medicine; Visit Provider Family Medicine
DX: R06.02 Shortness of breath (principal); Z94.0 Kidney transplant status; Z95.828 Presence of other vascular implants and grafts
CPT/HCPCS: 71046

== ENCOUNTER 2025-07-07 13:18 | Outpatient (CLI) | payer MEDICARE, MEDICAID, SELFPAY ==
--- OUTSIDE RECORDS SUMMARY | 2025-06-12 10:37 | XMS_ITS | Encounter Summary ---
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 SHOP SUPERVISOR ONLY (CANCELED) Intra-op PRN, Starting on Bobbi [...] 24 hours. 2029 (Given - Provider: Kaycee Wood RN) 310 (Given - Provider: Kaycee Curtis [...] documented as of this encounter Care Teams Tuber Helper Relationship Specialty Start Date End Date Edgar Fournier MD [address] [place] [id number] PCP - General 06/12/25 Maile Valles, JANA Txp Post Coordinator Transplant Hepatology 11/07/17 Estephania Sharif, DarrianD Pharmacist Pharmacist 11/11/19 Khari Lema MD [address] [facility] [address] [place] [id number] Txp Nitro Man Transplant Hepatology 05/29/25 documented as of this encounter
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
--- OUTSIDE RECORDS SUMMARY | 2025-07-07 13:31 | XMS_ITS | Encounter Summary ---
Author Organization [facility] Address [address] [place] [address] Care Team Providers Care Hvac Specialist Name Role Phone Edgar Fournier MD Primary Care Provider Enrique Griffith MD Unavailable Encounter Details Date Type Department Care Team (Late st Contact Info) Description 10/19/2016 Legacy OTTR Encounter Historical OTTR [address] [place] [address] Shara Huff, RAIL SETTER, DNP [address] [facility] [address] [place] [address] Social History Tobacco Use Types Packs/Day Years [...] 3U PRBCs and transferred to ICU at [facility]. On arrival he was actively [...] Organization Address [facility] Co de Phone Number EXTERNAL LAB * OTTR LAB RESULTS (MANUAL) (10/19/2016 2:12 AM EST) External Estimated GFR 72.32 EXTERNAL LAB 10/19/2016 2:12 AM EST Narrative EXTERNAL LAB - 10/19/2016 3:07 AM EST Automated LAB Interface Historical Provider LAB BLOOD ORDERABLES Final R esult Performing Organization Address [facility] de Phone Number EXTERNAL LAB * OTTR LAB RESULTS (MANUAL) (10/18/2016 2:29 PM EST) External Estimated GFR 72.32 EXTERNAL LAB 10/18/2016 2:29 PM EST Narrative EXTERNAL LAB - 10/18/2016 3:20 PM EST Automated LAB Interface Historical Provider LAB BLOOD ORDERABLES Final R esult Performing Organization Address [facility] de Phone Number EXTERNAL LAB * OTTR LAB RESULTS (MANUAL) (10/18/2016 10:15 AM EST) External Estimated GFR 70.23 EXTERNAL LAB 10/18/2016 10:1 5 AM EST Narrative EXTERNAL LAB - 10/18/2016 11:08 AM EST Automated LAB Interface Historical Provider LAB BLOOD ORDERABLES Final R esult Performing Organization Address [facility] Co de Phone Number EXTERNAL LAB * OTTR LAB RESULTS (MANUAL) (10/18/2016 2:09 AM EST) External Estimated GFR 62.92 EXTERNAL LAB 10/18/2016 2:09 AM EST Narrative EXTERNAL LAB - 10/18/2016 3:04 AM EST Automated LAB Interface Historical Provider LAB BLOOD ORDERABLES Final R esult Performing Organization Address City/[facility] Co de Phone Number EXTERNAL LAB documented in this encounter Visit Diagnoses Not on filedocumented in this encounter Additional Health Concerns Infection Onset Date Last Indicated Resolved Time COVID-19 Rule-Out 11/08/2021 11/08/2021 11/08/2021 8:06 AM EDT documented as of this encounter Care Teams Hvac Specialist Relationship Specialty Start Date End Date Edgar Fournier MD [address] [place] [address] PCP - General 12/25/20 Enrique Griffith MD [address] [place] [address] Referring Physician Nephrology 01/08/21 documented as of this encounter
--- OUTSIDE RECORDS SUMMARY | 2025-07-07 13:31 | XMS_ITS | Encounter Summary ---
Author Organization [facility] Address [address] [place] [address] Care Team Providers Care Reproducer Name Role Phone Edgar Fournier MD Primary Care Provider Enrique Griffith MD Unavailable [phone] Encounter Details Date Type Department Care Team (Late st Contact Info) Description 10/17/2016 Legacy OTTR Encounter Historical OTTR [address] [place] [address] Antione Romano APRN [address] [facility] [address] [place] [address] Social History Tobacco Use Types Packs/Day Years [...] 3U PRBCs and transferred to ICU at [facility]. On arrival he was actively [...] ORDERABLES Final R esult Performing Organization Address City/[facility]/ZIP Co de Phone Number EXTERNAL LAB * OTTR LAB RESULTS (MANUAL) (10/16/2016 5:43 AM EST) External Estimated GFR 66.39 EXTERNAL LAB 10/16/2016 5:43 AM EST Narrative EXTERNAL LAB - 10/16/2016 6:29 AM EST Automated LAB Interface Historical Provider LAB BLOOD ORDERABLES Final R esult Performing Organization Address City/[facility]/ZIP Co de Phone Number EXTERNAL LAB * OTTR LAB RESULTS (MANUAL) (10/16/2016 2:04 AM EST) External Estimated GFR 58.79 EXTERNAL LAB 10/16/2016 2:04 AM EST Narrative EXTERNAL LAB - 10/16/2016 2:48 AM EST Automated LAB Interface Historical Provider LAB BLOOD ORDERABLES Final R esult Performing Organization Address City/[facility] Co de Phone Number EXTERNAL LAB documented in this encounter Visit Diagnoses Not on filedocumented in this encounter Additional Health Concerns Infection Onset Date Last Indicated Resolved Time COVID-19 Rule-Out 11/08/2021 11/08/2021 11/08/2021 8:06 AM EDT documented as of this encounter Care Teams Reproducer Relationship Specialty Start Date End Date Edgar Fournier MD [address] [place] [address] PCP - General 12/25/20 Enrique Griffith MD [address] [place] [address] Referring Physician Nephrology 01/08/21 documented as of this encounter
--- OUTSIDE RECORDS SUMMARY | 2025-07-07 13:31 | XMS_ITS | Encounter Summary ---
Author Organization [facility] Address [address] [place] [address] Care Team Providers Care Vice President Industrial Relations Name Role Phone Edgar Fournier MD Primary Care Provider [phone] Enrique Griffith MD Unavailable [phone] Encounter Details Date Type Department Care Team (Late st Contact Info) Description 09/22/2016 [facility] OTTR Encounter Historical OTTR [address] [place] [address] Bridgett Márquez, RN [facility] [id number] [address] [place] [address] Social History Tobacco Use Types Packs/Day Years [...] of this encounter Care Teams Vice President Industrial Relations Relationship Specialty Start Date End Date Edgar Fournier MD [address] [place] [address] PCP - General 12/25/20 Enrique Griffith MD [address] [place] [address] Referring Physician Nephrology 01/08/21 documented as of this encounter
--- OUTSIDE RECORDS SUMMARY | 2025-07-07 13:31 | XMS_ITS | Encounter Summary ---
Author Organization [facility] Address [address] [place] [address] Care Team Providers Care Geoint Analyst Name Role Phone Edgar Fournier MD Primary Care Provider [phone] Enrique Grfifith MD Unavailable [phone] Encounter Details Date Type Department Care Team (Late st Contact Info) Description 10/17/2016 Legacy OTTR Encounter Historical OTTR [address] [place] [address] Bridgett Márquez, RN [facility] [id number] [address] [place] [address] Social History Tobacco Use Types Packs/Day Years [...] documented as of this encounter Care Teams Geoint Analyst Relationship Specialty Start Date End Date Edgar Fournier MD [address] [place] [address] PCP - General 12/25/20 Enrique Griffith MD [address] [place] [address] Referring Physician Nephrology 01/08/21 documented as of this encounter
--- OUTSIDE RECORDS SUMMARY | 2025-07-07 13:31 | XMS_ITS | Encounter Summary ---
Author Organization [facility] Address [address] [place] [address] Care Team Providers Care Sales Associate Name Role Phone Edgar Fournier MD Primary Care Provider [phone] Enrique Griffith MD Unavailable [phone] Encounter Details Date Type Department Care Team (Late st Contact Info) Description 10/12/2016 Legacy OTTR Encounter Historical OTTR [address] [place] [address] Bridgett Márquez, RN HOSPITAL LIVER [id number] [address] [place] [address] Social History Tobacco Use Types Packs/Day Years [...] patient. He is currently in ER at [facility]. He adv he had EGD last week, [...] as of this encounter Care Teams Sales Associate Relationship Specialty Start Date End Date Edgar Fournier MD [address] [place] [address] PCP - General 12/25/20 Enrique Griffith MD [address] [place] [phone] Referring Physician Nephrology 01/08/21 documented as of this encounter
--- OUTSIDE RECORDS SUMMARY | 2025-07-07 13:31 | XMS_ITS | Clinical Summary ---
Author Organization [facility] Address [address] [place] [address] Care Team Providers Care Paper Supervisor Name Role Phone Edgar Fournier MD Primary Care Provider [phone] Enrique Griffith MD Unavailable [phone] Allergies Active Allergy Reactions Criticality Noted Date Comments Codeine Anxiety Medium 06/02/2014 Tacrolimus Other - please docum ent in the comment field High 03/02/2021 Anxious feeling and muscle jerking. TOLERATED ENVARSUS BETTER THAN PROGRAF. Medications ergocalciferol (ergocalciferol) 1.25 MG (81344 UT) capsule Take 1 capsule (50,000 Units) [...] Active fluticasone (Flonase) 50 MCG/ACT nasal spray [place] 2 spray nasALLY once a day as [...] MG(Fe) tablet 3 Active Continuous Blood Gluc Records Supervisor (Dexcom G7 Records Supervisor) device USE DIRECTED by 3 Active Continuous Blood Gluc Sensor (Dexcom G7 Sensor) [facility] USE DIRECTED CHANGE every 10 DAYS 3 Active sodium zirconium cyclosilicate (Lokelma) 10 g packet Take 10 g by mouth 1 (one) time each day. 3 Active methocarbamol (Robaxin) 500 MG tablet TAKE ONE TABLET BY MOUTH FOUR TIMES DAILY (BEFORE MEALS AND AT BEDTIME) 3 Active Vitamin D3 1.25 MG (31118 UT) capsule take 1 Capsule by mouth [...] Glucose Sensor (FreeStyle Leonel 2 Plus Sensor) [facility] Active Active Problems Problem Noted Date Diagnosed [...] Type Department Care Team Description 04/30/[address] [facility] [address] [address] Zion Virgen, RN from Last [...] Mother Kimberly Alcohol abuse Sister 1 Nadya Ponderosa Cirrhosis Sister 2 Diabetes Sister 3 Nadya Relation Name Status Comments Father Aiden Stauffer Sr Father's Brother Edwar Stauffer Mother Kimberly Sister 1 Nadya Gallo Sister 2 Sister 3 Nadya Social History [...] In the past 12 months has th [employer], gas, oil, or water company threatened [...] Health Maintenance Due Date Last Done Comments [facility]-Medicare Annual Wellness (AWV) 1975 UKY-Infant/Child/Adol SDOH Screenings [...] 2019 FIT 2019 FOBT 2019 Sigmoidoscopy 2019 [id number] Vaccine (3 - Moderna risk series) 10/26/2021 [...] Antibody/Antigen Screen (03/16/2023 1:57 PM EDT) Pathologist [facility] HIV 1 & 2 Antibody/Antigen Screen Non [...] ORDERABLES Final Resul t Performing Organization Address City/[facility] Co de Phone Number HEALTHCARE LAB [address] [place] [address] * Hepatitis C Antibody (03/16/2023 1:57 PM EDT) Pathologist [facility] Hepatitis C Antibody Negative Negative 03/16/2023 5:00 PM EDT HEALTHCARE LAB Blood Venous blood specimen / Unknown Venipuncture / Unknown 03/16/2023 1:57 PM EDT 03/16/2023 4:17 PM EDT us Petrona Sheppard MD LAB BLOOD ORDERABLES Final Resul t Performing Organization Address City/[facility] Co de Phone Number HEALTHCARE LAB [address] [place] [address] * (ABNORMAL) Hemoglobin A1c (01/28/2021 9:53 AM EDT) Pathologist [facility] Hemoglobin A1c 6.0(H) <5.7 % 01/28/2021 10:49 [...] Adults <6.0% Children and Adolescents <7.5% Source: [place] [employer]. Standards of medical care in diabetes,2017. Diabetes Care.2017:40 (suppl 1):S1-S135. HbA1c assay performed by an ion-exchange chromatography method that is certified traceable to the DCCT. Petrona Sheppard MD LAB BLOOD ORDERABLES Final Resul t [facility] [address] [place] [address] * COLONOSCOPY (10/20/2016) Anatomical Region Laterality Modality Endoscopy Narrative 10/20/2016 Ordered by an unspecified provider. Historical Provider GI PROCEDURE ORDERABLES Yoselin l Result from Last 3 Months or Most Recently Relevant to Health Maintenance Insurance [place] MED[place] MEDICARE Advance Directives * Full Code (Latest Code Status on File) Date Activated Date Inactivated Comments 11/08/2021 4:49 AM 11/09/2021 10:10 PM Patient wan ts full resuscitative measures if needed Question Answer Comments Patient has decision-making capacity? Yes Care Teams Paper Supervisor Relationship Specialty Start Date End Date Edgar Fournier MD [address] [place] [address] PCP - General 12/25/20 Enrique Griffith MD [address] [place] [address] Referring Physician Nephrology 01/08/21
--- OUTSIDE RECORDS SUMMARY | 2025-07-07 13:31 | XMS_ITS | Encounter Summary ---
Author Organization [facility] Address [address] [place] [address] Care Team Providers Care Process Tank Tender Name Role Phone Edgar Fournier MD Primary Care Provider Enrique Griffith MD Unavailable [phone] Encounter Details Date Type Department Care Team (Late st Contact Info) Description 10/13/2016 Legacy OTTR Encounter Historical OTTR [address] [place] [address] Nataly Masterson RN [facility] None Social History Tobacco Use Types Packs/Day Years [...] as of this encounter Care Teams Process Tank Tender Relationship Specialty Start Date End Date Edgar Fournier MD [address] [place] [address] PCP - General 12/25/20 Enrique Griffith MD [address] [place] [address] Referring Physician Nephrology 01/08/21 documented as of this encounter
--- OUTSIDE RECORDS SUMMARY | 2025-07-07 13:31 | XMS_ITS | Encounter Summary ---
Author Organization Address [address] [place] [address] Care Team Providers Care Vessel Traffic Officer Name Role Phone Edgar Fourneir MD Primary Care Provider Enrique Griffith MD Unavailable [phone] Encounter Details Date Type Department Care Team (Late st Contact Info) Description 10/14/2016 Legacy OTTR Encounter Historical OTTR [address] [place] [address] Shara Huff, CUT IN WORKER, DNP [address] [facility] [address] [place] [address] Social History Tobacco Use Types Packs/Day Years [...] transfused 3U PRBCsand transferred to ICU at [facility]. [...] documented as of this encounter Care Teams Vessel Traffic Officer Relationship Specialty Start Date End Date Edgar Fournier MD [address] [place] [address] PCP - General 12/25/20 Enrique Griffith MD [address] [place] [address] Referring Physician Nephrology 01/08/21 documented as of this encounter
--- OUTSIDE RECORDS SUMMARY | 2025-07-07 13:31 | XMS_ITS | Encounter Summary ---
Author Organization [facility] Address [address] [place] [address] Care Team Providers Care Traffic Officer Name Role Phone Edgar Fournier MD Primary Care Provider Enrique Griffith MD Unavailable [phone] Encounter Details Date Type Department Care Team (Late st Contact Info) Description 09/27/2016 Legacy OTTR Encounter Historical OTTR [address] [place] [address] Bridgett Márquez, RN HOSPITAL LIVER [id number] [address] [place] [address] Social History Tobacco Use Types Packs/Day Years [...] of last labs and office notes to [phone]. Will do same. documented in this encounter Plan of Treatment Not on file documented as of this encounter Visit Diagnoses Not on filedocumented in this encounter Additional Health Concerns Infection Onset Date Last Indicated Resolved Time COVID-19 Rule-Out 11/08/2021 11/08/2021 11/08/2021 8:06 AM EDT documented as of this encounter Care Teams Traffic Officer Relationship Specialty Start Date End Date Edgar Fournier MD [address] [place] [address] PCP - General 12/25/20 Enrique Griffith MD [address] [place] [address] Referring Physician Nephrology 01/08/21 documented as of this encounter
--- OUTSIDE RECORDS SUMMARY | 2025-07-07 13:31 | XMS_ITS | Encounter Summary ---
Author Organization [facility] Address [address] [place] [address] Care Team Providers Care Seamless Tube Roller Name Role Phone Edgar Fournier MD Primary Care Provider [phone] Enrique Griffith MD Unavailable [phone] Encounter Details Date Type Department Care Team (Late st Contact Info) Description 09/27/2016 Legacy OTTR Encounter Historical OTTR [address] [place] [address] Bridgett Márquez, RN HOSPITAL LIVER [id number] [address] [place] [address] Social History Tobacco Use Types Packs/Day Years [...] and cramping. He was in hospital at [facility] and they transferred him to . At they determined he was getting better and sent him home. Patient still has a lot of abdominal pain, and does not know what to do. When patient admitted to [facility] ED his ammonia level was 170, [...] documented as of this encounter Care Teams Seamless Tube Roller Relationship Specialty Start Date End Date Edgar Fournier MD [address] [place] [address] PCP - General 12/25/20 Enrique Griffith MD [address] [place] [address] Referring Physician Nephrology 01/08/21 documented as of this encounter
--- OUTSIDE RECORDS SUMMARY | 2025-07-07 13:31 | XMS_ITS | Encounter Summary ---
Author Organization [facility] Address [address] [place] [address] Care Team Providers Care Parcel Post Clerk Name Role Phone Edgar Fournier MD Primary Care Provider Enrique Griffith MD Unavailable Encounter Details Date Type Department Care Team (Late st Contact Info) Description 10/20/2016 Legacy OTTR Encounter Historical OTTR [address] [place] [address] Sandrita Ferguson, INNOVATIONS PARAPROFESSIONAL [address] [facility] [address] [place] [address] Social History Tobacco Use Types Packs/Day Years [...] RESULTS (MANUAL) (10/21/2016 4:00 AM EST) Pathologist [facility] External Estimated GFR 87.69 EXTERNAL LAB 10/21/2016 4:00 AM EST Narrative EXTERNAL LAB - 10/21/2016 3:12 AM EST Automated LAB Interface Historical Provider LAB BLOOD ORDERABLES Final R esult Performing Organization Address [facility] de Phone Number EXTERNAL LAB * OTTR LAB RESULTS (MANUAL) (10/20/2016 11:17 AM EST) Pathologist [facility] External Estimated GFR 81.93 EXTERNAL LAB 10/20/2016 11:1 7 AM EST Narrative EXTERNAL LAB - 10/20/2016 12:03 PM EST Automated LAB Interface Historical Provider LAB BLOOD ORDERABLES Final R esult Performing Organization Address [facility] Co de Phone Number EXTERNAL LAB * OTTR LAB RESULTS (MANUAL) (10/20/2016 2:11 AM EST) External Estimated GFR 79.31 EXTERNAL LAB 10/20/2016 2:11 AM EST Narrative EXTERNAL LAB - 10/20/2016 3:18 AM EST Automated LAB Interface Historical Provider LAB BLOOD ORDERABLES Final R esult Performing Organization Address [facility]/State/ZIP Co de Phone Number EXTERNAL LAB documented in this encounter Visit Diagnoses Not on filedocumented in this encounter Additional Health Concerns Infection Onset Date Last Indicated Resolved Time COVID-19 Rule-Out 11/08/2021 11/08/2021 11/08/2021 8:06 AM EDT documented as of this encounter Care Teams Parcel Post Clerk Relationship Specialty Start Date End Date Edgar Fournier MD [address] [place] [address] PCP - General 12/25/20 Enrique Griffith MD [address] [place] [address] Referring Physician Nephrology 01/08/21 documented as of this encounter
--- OUTSIDE RECORDS SUMMARY | 2025-07-07 13:32 | XMS_ITS | Encounter Summary ---
Author Organization [facility] Address [facility] [place] [address] Care Team Providers Care Receptionist Airline Lounge Name Role Phone Maile Valles RN Unavailable Unavail able Estephania Sharif PharmD Unavailable Christine Edgar Tolentino MD Primary Care Provider [phone] Khari Lema MD Unavailable [phone] Source Comments This information has been disclosed [...] release of HIV test results or diagnoses. [id number] Reason for Visit * Reason Comments Results Fax Results 1st Atte mpt Encounter Details Date Type Department Care Team (Late st Contact Info) Description 06/18/2025 Telephone [facility] Cardiology at [facility] Office [address] [place] [address] Lianet Mayen CNP [address] [place] [address] Results (Fax Results 1st Attempt ) Social History Tobacco Use Types Packs/Day Years Used Date Smoking Tobacco: Never Smokeless Tobacco: Never Alcohol Use Standard Drinks/Week Comments Never 0 (1 standard drink = 0.6 oz pur e alcohol) [facility] Utilities Answer Date Recorded In the past [...] any time in the past 12 m [facility], were you homeless or living in a [facility] (including now)? No 06/12/2025 Yearly Questionnaire Answer [...] encounter Miscellaneous Notes * Telephone Encounter - Amber Galdamez RN - 06/19/2025 8:18 AM EST Cath report faxed as requested. * Telephone Encounter - Eneida Neumann MA - 06/18/2025 4:12 PM EST Pt called requesting procedure results/findings from procedure on 06/12 to be faxed to: Destination: [facility] Attn: Cardiology and Dr. Blackman Fax#: [phone] Pts appt if 06/19 May be reached if needed at [phone] (M). documented in this encounter Plan of Treatment Not on file documented as of this encounter Visit Diagnoses Not on filedocumented in this encounter Additional Health Concerns Assessment Noted Time PHQ-9 Depression Total Score: 0 12/06/19 18 3:00 PM EDT documented as of this encounter Care Teams Receptionist Airline Lounge Relationship Specialty Start Date End Date Edgar Fournier MD [address] [place] [address] PCP - General 06/12/25 Maile Valles, JANA Txp Post Coordinator Transplant Hepatology 11/07/17 Estephania Sharif, PharmD Pharmacist Pharmacist 11/11/19 Khari Lema MD [address] [facility] [address] [place] [address] Txp Heat Treater Helper Transplant Hepatology 05/29/25 documented as of this encounter
--- OUTSIDE RECORDS SUMMARY | 2025-07-07 13:32 | XMS_ITS | Encounter Summary ---
Author Organization [facility] Address [address] [place] [address] Care Team Providers Care Certified Registered Locksmith Name Role Phone Edgar Fournier MD Primary Care Provider [phone] Enrique Griffith MD Unavailable [phone] Encounter Details Date Type Department Care Team (Late st Contact Info) Description 09/14/2016 [facility] Encounter Historical OTTR [address] [place] [address] Vera Rosales [address] Social History Tobacco Use Types Packs/Day Years [...] as of this encounter Care Teams Certified Registered Locksmith Relationship Specialty Start Date End Date Edgar Fournier MD [address] [place] [address] PCP - General 12/25/20 Enrique Griffith MD [address] [place] [address] Referring Physician Nephrology 01/08/21 documented as of this encounter
--- OUTSIDE RECORDS SUMMARY | 2025-07-07 13:32 | XMS_ITS | Encounter Summary ---
Author Organization [employer] ([place], [place], [place], [place], [place]) Address [address] [place] [address] Care Team Providers Care Diet Consultant Name Role Phone Onesimo Garcia MD Primary Care Provider [phone] Onesimo Garcia MD Primary Care Provider [phone] Encounter Details Date Type Department Care Team (Late st Contact Info) Description 04/13/[address] [facility] Family [facility] [place] [address] ProviderAmrit MD [address] [place] [address] Social History Tobacco Use Types Packs/Day [...] Amrit ProviderMD - 04/13/2020 1:[address] [address] AIDEN ROLLINS JR :1975 Visit Time:04/13/2020 Your Visit Summary Your Care Team Admitting Physician - DAPHNEY STREET MD-BANNER Attending Physician - DAPHNEY STRE[address] MD-NEP Primary [...] at home: Medicines ??? Take or apply ggeu-vec-ytnwybe and prescription medicines only as told by [...] cannot use soap and water, use hand asphalt smoother. ? Change your bandage as told by [...] 05/09/2009 Document Revised: 03/12/2019 Document Reviewed: 03/12/2019 [employer] Patient Education ?? 2020 [employer]. Emergency Awareness and Preventative Care STROKE is [...] Assistance with quitting is available by contacting 2-042-IGRG-NOW. This is a free resource providing counseling, [...] was given the opportunity to ask questions. Patient/Gauge Checker Name: Patient/Gauge Checker Signature: Relationship to Patient: Clinician/Hospital Gauge Checker Signature: Date: documented in this encounter Plan of Treatment Not on file documented as of this encounter Visit Diagnoses Not on filedocumented in this encounter Care Teams Diet Consultant Relationship Specialty Start Date End Date Onesimo Garcia MD [address] [place], [place] [address] PCP - General Family Medicine 01/17/23 06/26/24 Onesimo Garcia MD [address] [place] [address] PCP - General Family Medicine 06/27/24 documented as of this encounter
--- OUTSIDE RECORDS SUMMARY | 2025-07-07 13:32 | XMS_ITS | Encounter Summary ---
Author Organization [facility] Address [address] [place] [address] Care Team Providers Care Plaster Mold Maker Name Role Phone Edgar Fournier MD Primary Care Provider [phone] Enrique Griffith MD Unavailable [phone] Encounter Details Date Type Department Care Team (Late st Contact Info) Description 11/01/2016 [facility] OT[facility] Encounter Historical OTTR [address] [place] [address] Provider, Amrit [address] [place] [address] Social History Tobacco Use Types Packs/Day [...] documented as of this encounter Care Teams Plaster Mold Maker Relationship Specialty Start Date End Date Edgar Fournier MD [address] [place] [address] PCP - General 12/25/20 Enrique Griffith MD [address] [place] [address] Referring Physician Nephrology 01/08/21 documented as of this encounter
--- OUTSIDE RECORDS SUMMARY | 2025-07-07 13:32 | XMS_ITS | Clinical Summary ---
Author Organization [facility] Address [address] [place] [address] Care Team Providers Care Precinct Captain Name Role Phone Edgar Fournier MD Primary Care Provider Allergies Active Allergy Reactions Criticality Noted Date [...] Blood Gluc Sensor (FreeStyle Leonel 2 Sensor) [facility] USE DIRECTED CHANGE EVERY 14 DAYS DIRECTED 09/07/19 24 Active cholecalciferol (VITAMIN D3) 1.25 MG (40709 UT) capsule Take 1 capsule by mouth [...] history exists Medical Devices Implanted Type Area Technical Manager Device Identifier Shelf Expiration Date Model / Serial / Lot Kt Seal Hemos Abs Floseal Matrx Fast/Prep 10ml - [id number] Implanted:Qty : 1 on 04/29/2020 by Yinka Garnica MD at [facility] Implant N/A: Spine Lumbar [facility] 08/18/2021 [id number] / / [id number] Hemost Abs Surgifoam Sz100 8x12 10mm - [id number] Implanted:Qty : 1 on 04/29/2020 by Yinka Garnica MD at [facility] Implant N/A: Spine Lumbar [employer] [...] ve Non-Reacti ve 10/27/2023 6:02 AM EDT [facility] Hep A IgM Non-Reacti ve Non-Reacti ve 10/27/2023 6:02 AM EDT [facility] Hep B C IgM Non-Reacti ve Non-Reacti ve 10/27/2023 6:02 AM EDT [facility] Hepatitis C Ab Non-Reacti ve Non-Reacti ve 10/27/2023 6:02 AM EDT [facility] Blood Venipuncture / Unknown 10/27/2023 5:00 AM EDT 10/27/2023 5:29 AM EDT Narrative [facility] - 10/27/2023 6:02 AM EDT Results may be falsely decreased if patient taking Biotin. us Jennifer Davison MD LAB BLOOD ORDERABLES Final Resul t [facility]
[address] [place] [address], * Lipid Panel (09/26/2023) Blood Claudia Calles MD LAB BLOOD ORDERABLES Final R esult Performing Organization Address [facility]/ZIP Co de Phone Number [facility]
[address] [place] [address], * (ABNORMAL) Hemoglobin A1c (08/12/2023 5:59 AM EST) Hemoglobin A1C 6.50(H) 4.80 - 5.60 % 08/12/2023 6:49 AM EST [facility] Blood Venipuncture / Unknown 08/12/2023 5:59 AM EST 08/12/2023 6:31 AM EST Narrative [facility] - 08/12/2023 6:49 AM EST Hemoglobin A1C Ranges: Increased Risk for Diabetes 5.7% to 6.4% Diabetes >= 6.5% Diabetic Goal < 7.0% Kaila Jhaveri MD LAB BLOOD ORDERABLES Fin al Result Performing Organization Address [facility] de Phone Number [facility]
[address] [place] [address], * (ABNORMAL) Occult Blood X 1, Stool - Stool, Per Rectum (05/02/2020 12:49 PM EDT) Fecal Occult Blood Positive( A) Negative DISK DIFFUSION 05/02/2020 1:50 PM EDT [facility] Stool Specimen from rectum / Unknown Collection / Unknown 05/02/2020 12:49 PM EDT 05/02/2020 1:01 PM EDT Odette Grace MD BODY FLUIDS AND STOOLS ORDERABLE S Final Result Performing Organization Address [facility] Co de Phone Number [facility]
[address] [place] [address], from Last 3 Months or Most Recently Relevant to Health [place] [address] MEDICAID [place] [facility] MEDICARE ADVANTAGE Advance Directives * CPR (Attempt [...] pulse or is breathing): Full Care Teams Precinct Captain Relationship Specialty Start Date End Date Edgar Fournier MD [address] [place] [address] PCP - General Family Medicine 04/27/20
--- OUTSIDE RECORDS SUMMARY | 2025-07-07 13:32 | XMS_ITS | Encounter Summary ---
Author Organization [facility] Address [address] [place] [address] Care Team Providers Care Birth Attendant Name Role Phone Edgar Fournier MD Primary Care Provider [phone] Enrique Griffith MD Unavailable [phone] Encounter Details Date Type Department Care Team (Late st Contact Info) Description 09/19/2016 [facility] OT[facility] Encounter Historical OTTR [address] [place] [address] Bridgett Márquez, RN HOSPITAL LIVER [id number] [address] [place] [address] Social History Tobacco Use Types Packs/Day Years [...] He adv he is inpatient again at [facility]. He is trying to see if [...] EXTERNAL LAB - 09/19/2016 12:49 PM EST [facility] us Historical Provider LAB BLOOD ORDERABLES [...] 64.04 EXTERNAL LAB 09/18/2016 2:[address] [facility] EXTERNAL LAB - 09/19/2016 12:48 PM EST [facility] us Historical Provider LAB BLOOD ORDERABLES Final R esult EXTERNAL LAB documented in this encounter Visit Diagnoses Not on filedocumented in this encounter Additional Health Concerns Infection Onset Date Last Indicated Resolved Time COVID-19 Rule-Out 11/08/2021 11/08/2021 11/08/2021 8:06 AM EDT documented as of this encounter Care Teams Birth Attendant Relationship Specialty Start Date End Date Edgar Fournier MD [address] [place] [address] PCP - General 12/25/20 Enrique Griffith MD [address] [place] [address] Referring Physician Nephrology 01/08/21 documented as of this encounter
--- OUTSIDE RECORDS SUMMARY | 2025-07-07 13:32 | XMS_ITS | Encounter Summary ---
Author Organization [facility] Address [address] [place] [address] Care Team Providers Care Tailings Worker Name Role Phone Edgar Fournier MD Primary Care Provider Enrique Griffith MD Unavailable [phone] Encounter Details Date Type Department Care Team (Late st Contact Info) Description 09/22/2016 [facility] OT[facility] Encounter Historical OTTR [address] [place] [address] Bridgett Márquez, RN HOSPITAL LIVER [id number] [address] [place] [address] Social History Tobacco Use Types Packs/Day Years [...] antibiotics and fluids. Will obtain records from [facility] Patient also needs to have repeat EGD NIELS. PHd Dr. Chauhan [phone]- l msg with plug stitcher. documented in this encounter Plan of Treatment Not on file documented as of this encounter Visit Diagnoses Not on filedocumented in this encounter Additional Health Concerns Infection Onset Date Last Indicated Resolved Time COVID-19 Rule-Out 11/08/2021 11/08/2021 11/08/2021 8:06 AM EDT documented as of this encounter Care Teams Tailings Worker Relationship Specialty Start Date End Date Edgar Fournier MD [address] [place] [address] PCP - General 12/25/20 Enrique Griffith MD [address] [place] [address] Referring Physician Nephrology 01/08/21 documented as of this encounter
--- OUTSIDE RECORDS SUMMARY | 2025-07-07 13:32 | XMS_ITS | Encounter Summary ---
Author Organization [facility] Address [address] [place] [address] Care Team Providers Care Auto Apprentice Mechanic Name Role Phone Edgar Fournier MD Primary Care Provider [phone] Enrique Griffith MD Unavailable [phone] Encounter Details Date Type Department Care Team (Late st Contact Info) Description 11/01/2016 [facility] OTTR Encounter Historical OTTR [address] [place] [address] Bridgett Márquez, RN [facility] [id number] [address] [place] [address] Social History Tobacco Use Types Packs/Day Years [...] as of this encounter Care Teams Auto Apprentice Mechanic Relationship Specialty Start Date End Date Edgar Fournier MD [address] [place] [address] PCP - General 12/25/20 Enrique Griffith MD [address] [place] [address] Referring Physician Nephrology 01/08/21 documented as of this encounter
--- OUTSIDE RECORDS SUMMARY | 2025-07-07 13:32 | XMS_ITS | Encounter Summary ---
Author Organization [facility] ([place], [place], [place], [place], [place]) Address [address] [place] [address] Care Team Providers Care Well Control Instructor Name Role Phone Edgar Fournier MD Primary Care Provider [phone] Edgar Fournier MD Primary Care Provider [phone] Encounter Details Date Type Department Care Team (Late st Contact Info) Description 04/13/2020 Transcribed Document [facility] Family [facility] [place] [address] ProviderAmrit MD [address] [place] [address] Social History Tobacco Use Types Packs/Day [...] 04/13/2020 13:53 EDT by ALMA DELIA CASANOVA electrician helper powerhouse Documentation Discharge Date/Time : 04/13/2020 14:00 EDT [...] - 04/13/2020 13:53 EDT Electronically signed by [facility], [facility] Conversion Rfid Manager Cerner at 12/04/2022 5:08 PM CDT documented in this encounter Plan of Treatment Not on file documented as of this encounter Visit Diagnoses Not on filedocumented in this encounter Care Teams Well Control Instructor Relationship Specialty Start Date End Date Edgar Fournier MD [address] [place] [address] PCP - General Family Medicine 01/17/23 06/26/24 Edgar Fournier MD [address] [place] [address] PCP - General Family Medicine 06/27/24 documented as of this encounter
--- OUTSIDE RECORDS SUMMARY | 2025-07-07 13:32 | XMS_ITS | Encounter Summary ---
Author Organization [facility] Address [facility] [place] [address] Care Team Providers Care Printed Circuit Board Layout Designer Name Role Phone Maile Valles RN Unavailable Unavail able Estephania Sharif PharmD Unavailable Christine Edgar Tolentino MD Primary Care Provider [phone] Khari Lema MD Unavailable [phone] Source Comments This information has been disclosed [...] release of HIV test results or diagnoses. [id number] Encounter Details Date Type Department Care Team (Late st Contact Info) Description 06/16/2025 Results Follow-Up [facility] Cardiac [employer] [address] [place] [address] Amber Galdamez RN Cardiac Cath Social History Tobacco Use Types Packs/Day Years Used Date Smoking Tobacco: Never Smokeless Tobacco: Never Alcohol Use Standard Drinks/Week Comments Never 0 (1 standard drink = 0.6 oz pur e alcohol) [facility] Utilities Answer Date Recorded In the past 12 months has th e [employer], [employer], oil, or water company threatened to shut [...] money to buy more. Never true 06/12/20 Within the past 12 months, t he [...] time in the past 12 m [facility], were you homeless or living [...] Telephone Encounter - Amber Galdamez RN - 06/16/2025 10:15 AM EST Called patient and he states he is feeling good, is at [employer] now. He denies any bleeding, drainage, or fever. States neck site was a little swollen, has since gone down. Looking into scheduling with another provider close to his home. Will call back if not able to get in. ----- Message from Lianet Mayen CNP sent at 06/13/2025 3:22 PM EDT ----- Can we call him on Monday and check to see how he is doing and make sure he has follow up with his primary cards. PHYLICIA Covington ----- Message ----- From: Interface, Results In Sent: 06/12/2025 6:29 PM EDT To: Lianet Mayen CNP documented in this encounter Plan of Treatment Not on file documented as of this encounter Visit Diagnoses Not on filedocumented in this encounter Additional Health Concerns Assessment Noted Time PHQ-9 Depression Total Score: 0 12/06/19 18 3:00 PM EDT documented as of this encounter Care Teams Printed Circuit Board Layout Designer Relationship Specialty Start Date End Date Edgar Fournier [place] [address] PCP - General 06/12/25 Maile Valles, RN Txp Post Coordinator Transplant Hepatology 11/07/17 Estephania Sharif, DarrianD Pharmacist Pharmacist 11/11/19 Khari Lema MD [address] [facility] [address] [place] [address] Txp Director Fixed Income Transplant Hepatology 05/29/25 documented as of this encounter
--- OUTSIDE RECORDS SUMMARY | 2025-07-07 13:32 | XMS_ITS | Encounter Summary ---
Author Organization [facility] Address [address] [place] [address] Care Team Providers Care Hospital Laboratory Technician Name Role Phone Edgar Fournier MD Primary Care Provider Enrique Griffith MD Unavailable Encounter Details Date Type Department Care Team (Late st Contact Info) Description 10/26/2016 [facility] OTTR Encounter Historical OTTR [address] [place] [address] Sandrita Ferguson, CLINICAL SPECIALIST VASCULAR [address] [facility] [address] [place] [address] Social History Tobacco Use Types Packs/Day Years [...] 3U PRBCs and transferred to ICU at [facility]. On arrival he was actively vomiting [...] ORDERABLES Final R esult Performing Organization Address City/[facility]/ZIP Co de Phone Number EXTERNAL LAB * OTTR LAB RESULTS (MANUAL) (10/26/2016 2:26 AM EDT) External Estimated GFR 113.78 EXTERNAL LAB 10/26/2016 2:26 AM EDT Narrative EXTERNAL LAB - 10/26/2016 3:29 AM EDT Automated LAB Interface Historical Provider LAB BLOOD ORDERABLES Final R esult Performing Organization Address City/[facility]/ZIP Co de Phone Number EXTERNAL LAB * OTTR LAB RESULTS (MANUAL) (10/25/2016 4:00 AM EDT) Pathologist [facility] External Estimated GFR 99.16 EXTERNAL LAB 10/25/2016 4:00 AM EDT Narrative EXTERNAL LAB - 10/25/2016 3:16 AM EDT Automated LAB Interface Historical Provider LAB BLOOD ORDERABLES Final R esult Performing Organization Address City/[facility]/ZIP Co de Phone Number EXTERNAL LAB documented in this encounter Visit Diagnoses Not on filedocumented in this encounter Additional Health Concerns Infection Onset Date Last Indicated Resolved Time COVID-19 Rule-Out 11/08/2021 11/08/2021 11/08/2021 8:06 AM EDT documented as of this encounter Care Teams Hospital Laboratory Technician Relationship Specialty Start Date End Date Edgar Fournier MD [address] [place] [address] PCP - General 12/25/20 Enrique Griffith MD [address] [place] [address] Referring Physician Nephrology 01/08/21 documented as of this encounter
--- OUTSIDE RECORDS SUMMARY | 2025-07-07 13:32 | XMS_ITS | Encounter Summary ---
Author Organization [facility] Address [address] [place] [address] Care Team Providers Care Linux Unix System Administrator Name Role Phone Edgar Fournier MD Primary Care Provider Enrique Griffith MD Unavailable [phone] Encounter Details Date Type Department Care Team (Late st Contact Info) Description 10/28/2016 [facility] OTTR Encounter Historical OTTR [address] [place] [address] [place] [address] Social History Tobacco Use Types Packs/Day Years [...] documented as of this encounter Care Teams Linux Unix System Administrator Relationship Specialty Start Date End Date Edgar Fournier MD [address] [place] [address] PCP - General 12/25/20 Enrique Griffith MD [address] [place] [address] Referring Physician Nephrology 01/08/21 documented as of this encounter
--- OUTSIDE RECORDS SUMMARY | 2025-07-07 13:32 | XMS_ITS | Encounter Summary ---
Author Organization [facility] Address [address] [place] [address] Care Team Providers Care Concrete Rubber Name Role Phone Edgar Fournier MD Primary Care Provider [phone] Enrique Griffith MD Unavailable [phone] Encounter Details Date Type Department Care Team (Late st Contact Info) Description 09/15/2016 [facility] OTTR Encounter Historical OTTR [address] [place] [address] Bridgett Márquez, RN [facility] [id number] [address] [place] [address] Social History Tobacco Use Types Packs/Day Years [...] as of this encounter Care Teams Concrete Rubber Relationship Specialty Start Date End Date Edgar Fournier MD [address] [place] [address] PCP - General 12/25/20 Enrique Griffith MD [address] [place] [address] Referring Physician Nephrology 01/08/21 documented as of this encounter
--- OUTSIDE RECORDS SUMMARY | 2025-07-07 13:32 | XMS_ITS | Encounter Summary ---
Author Organization [facility] Address [address] [place] [address] Care Team Providers Care Lead Software Developer Name Role Phone Edgar Fournier MD Primary Care Provider [phone] Enrique Griffith MD Unavailable [phone] Encounter Details Date Type Department Care Team (Late st Contact Info) Description 10/14/2016 Legacy OTTR Encounter Historical OTTR [address] [place] [address] Bridgett Márquez, RN [facility] [id number] [address] [place] [address] Social History Tobacco Use Types Packs/Day Years [...] esult Performing Organization Address [facility] de Phone Number EXTERNAL LAB * OTTR LAB RESULTS (MANUAL) (10/15/2016 6:05 PM EST) External Estimated GFR 59.77 EXTERNAL LAB 10/15/2016 6:05 PM EST Narrative EXTERNAL LAB - 10/15/2016 6:56 PM EST Automated LAB Interface Historical Provider LAB BLOOD ORDERABLES Final R esult Performing Organization Address [facility] Phone Number EXTERNAL LAB * OTTR LAB RESULTS (MANUAL) (10/15/2016 1:59 PM EST) External Estimated GFR 58.79 EXTERNAL LAB 10/15/2016 1:59 PM EST Narrative EXTERNAL LAB - 10/15/2016 2:46 PM EST Automated LAB Interface Historical Provider LAB BLOOD ORDERABLES Final R esult Performing Organization Address [facility] de Phone Number EXTERNAL LAB * OTTR LAB RESULTS (MANUAL) (10/15/2016 10:36 AM EST) External Estimated GFR 63.47 EXTERNAL LAB 10/15/2016 10:3 6 AM EST Narrative EXTERNAL LAB - 10/15/2016 11:28 AM EST Automated LAB Interface Historical Provider LAB BLOOD ORDERABLES Final R esult Performing Organization Address [facility] de Phone Number EXTERNAL LAB * OTTR LAB RESULTS (MANUAL) (10/15/2016 6:35 AM EST) External Estimated GFR 56.45 EXTERNAL LAB 10/15/2016 6:35 AM EST Narrative EXTERNAL LAB - 10/15/2016 7:23 AM EST Automated LAB Interface Historical Provider LAB BLOOD ORDERABLES Final R esult Performing Organization Address City/[facility] Co de Phone Number EXTERNAL LAB * OTTR LAB RESULTS (MANUAL) (10/15/2016 1:58 AM EST) External Estimated GFR 59.28 EXTERNAL LAB 10/15/2016 1:58 AM EST Narrative EXTERNAL LAB - 10/15/2016 2:52 AM EST Automated LAB Interface Historical Provider LAB BLOOD ORDERABLES Final R esult Performing Organization Address [facility] Co de Phone Number EXTERNAL LAB * OTTR LAB RESULTS (MANUAL) (10/14/2016 10:53 PM EST) External Estimated GFR 59.77 EXTERNAL LAB 10/14/2016 10:5 3 PM EST Narrative EXTERNAL LAB - 10/14/2016 11:37 PM EST Automated LAB Interface Historical Provider LAB BLOOD ORDERABLES Final R esult Performing Organization Address [facility] Co de Phone Number EXTERNAL LAB * OTTR LAB RESULTS (MANUAL) (10/14/2016 6:52 PM EST) External Estimated GFR 65.79 EXTERNAL LAB 10/14/2016 6:52 PM EST Narrative EXTERNAL LAB - 10/14/2016 7:44 PM EST Automated LAB Interface Historical Provider LAB BLOOD ORDERABLES Final R esult Performing Organization Address City/[facility]/ZIP Co de Phone Number EXTERNAL LAB * OTTR LAB RESULTS (MANUAL) (10/14/2016 2:07 PM EST) External Estimated GFR 50.39 EXTERNAL LAB 10/14/2016 2:07 PM EST Narrative EXTERNAL LAB - 10/14/2016 3:44 PM EST Automated LAB Interface Historical Provider LAB BLOOD ORDERABLES Final R esult Performing Organization Address [facility] de Phone Number EXTERNAL LAB * OTTR LAB RESULTS (MANUAL) (10/14/2016 12:21 PM EST) External Estimated GFR 48.30 EXTERNAL LAB 10/14/2016 12:2 1 PM EST Narrative EXTERNAL LAB - 10/14/2016 1:33 PM EST Automated LAB Interface Historical Provider LAB BLOOD ORDERABLES Final R esult Performing Organization Address [facility] de Phone Number EXTERNAL LAB * OTTR LAB RESULTS (MANUAL) (10/14/2016 10:33 AM EST) External Estimated GFR 53.47 EXTERNAL LAB 10/14/2016 10:3 3 AM EST Narrative EXTERNAL LAB - 10/14/2016 11:58 AM EST Automated LAB Interface Historical Provider LAB BLOOD ORDERABLES Final R esult Performing Organization Address [facility] de Phone Number EXTERNAL LAB * OTTR LAB RESULTS (MANUAL) (10/14/2016 9:20 AM EST) External Estimated GFR 57.37 EXTERNAL LAB 10/14/2016 9:20 AM EST Narrative EXTERNAL LAB - 10/14/2016 10:27 AM EST Automated LAB Interface us Historical Provider LAB BLOOD ORDERABLES Final R esult Performing Organization Address [facility] de Phone Number EXTERNAL LAB * OTTR LAB RESULTS (MANUAL) (10/14/2016 6:31 AM EST) External Estimated GFR 61.84 EXTERNAL LAB 10/14/2016 6:31 AM EST Narrative EXTERNAL LAB - 10/14/2016 7:46 AM EST Automated LAB Interface Historical Provider LAB BLOOD ORDERABLES Final R esult Performing Organization Address [facility] Co de Phone Number EXTERNAL [...] ORDERABLES Final R esult Performing Organization Address City/[facility]/ZIP Co de Phone Number EXTERNAL LAB documented in this encounter Visit Diagnoses Not on filedocumented in this encounter Additional Health Concerns Infection Onset Date Last Indicated Resolved Time COVID-19 Rule-Out 11/08/2021 11/08/2021 11/08/2021 8:06 AM EDT documented as of this encounter Care Teams Lead Software Developer Relationship Specialty Start Date End Date Edgar Fournier MD [address] [place] [address] PCP - General 12/25/20 Enrique Griffith MD [address] [place] [phone] Referring Physician Nephrology 01/08/21 documented as of this encounter
--- OUTSIDE RECORDS SUMMARY | 2025-07-07 13:32 | XMS_ITS | Encounter Summary ---
Author Organization [facility] Address [address] [place] [address] Care Team Providers Care Staffing Associate Name Role Phone Edgar Fournier MD Primary Care Provider [phone] Enrique Griffith MD Unavailable [phone] Encounter Details Date Type Department Care Team (Late st Contact Info) Description 10/27/2023 Orders Only External Location [address] [place] [address] Provider, External Social History Tobacco Use Types [...] documented as of this encounter Care Teams Staffing Associate Relationship Specialty Start Date End Date Edgar Fournier MD [address] [place] [address] PCP - General 12/25/20 Enrique Griffith MD [address] [place] [address] Referring Physician Nephrology 01/08/21 documented as of this encounter
--- OUTSIDE RECORDS SUMMARY | 2025-07-07 13:32 | XMS_ITS | Encounter Summary ---
Author Organization [facility] Address [address] [place] [address] Care Team Providers Care Exchange Engineer Name Role Phone Edgar Fournier MD Primary Care Provider [phone] Enrique Griffith MD Unavailable [phone] Encounter Details Date Type Department Care Team (Late st Contact Info) Description 11/02/2016 Legacy OTTR Encounter Historical OTTR [address] [place] [address] Provider, Amrit [address] [place] [address] Social History Tobacco Use Types Packs/Day [...] documented as of this encounter Care Teams Exchange Engineer Relationship Specialty Start Date End Date Edgar Fournier MD [address] [place] [address] PCP - General 12/25/20 Enrique Griffith MD [address] [place] [address] Referring Physician Nephrology 01/08/21 documented as of this encounter
--- OUTSIDE RECORDS SUMMARY | 2025-07-07 13:32 | XMS_ITS | Encounter Summary ---
Author Organization [email or web address] ([place], [place], [place], [place], [place]) Address [address] [place] [address] Care Team Providers Care Local Area Network Administrator Name Role Phone Edgar Fournier MD Primary Care Provider [phone] Edgar Fournier MD Primary Care Provider [phone] Encounter Details Date Type Department Care Team (Late st Contact Info) Description 04/13/2020 Transcribed Document [facility] Family [place] [address] ProviderAmrit MD [address] [place] [id number] Social History Tobacco Use Types Packs/Day Years [...] Dialysis catheter removal Procedural MD: Dr. Guzmán Decorative Engraver Apprentice: Mary Chao PA-C; Maile Connolly PA-C Sedation: None Findings: Successful removal of dialysis catheter Complications: None EBL: Minimal Specimen(s) Removed: None Full report to follow. documented in this encounter Plan of Treatment Not on file documented as of this encounter Visit Diagnoses Not on filedocumented in this encounter Care Teams Local Area Network Administrator Relationship Specialty Start Date End Date Edgar Fournier MD [address] [place] [address] PCP - General Family Medicine 01/17/23 06/26/24 Edgar Fournier MD [address] [place] [address] PCP - General Family Medicine 06/27/24 documented as of this encounter
--- OUTSIDE RECORDS SUMMARY | 2025-07-07 13:32 | XMS_ITS | Encounter Summary ---
Author Organization [facility] Address [address] [place] [address] Care Team Providers Care Patient Support Associate Name Role Phone Edgar Fournier MD Primary Care Provider [phone] Enrique Griffith MD Unavailable [phone] Encounter Details Date Type Department Care Team (Late st Contact Info) Description 10/28/2016 Legacy OTTR Encounter Historical OTTR [address] [place] [address] Antione Romano APRN [address] [place] [address] Social History Tobacco Use Types Packs/Day Years [...] documented as of this encounter Care Teams Patient Support Associate Relationship Specialty Start Date End Date Edgar Fournier MD [facility] [place] [address] PCP - General 12/25/20 Enrique Griffith MD [address] [place] [address] Referring Physician Nephrology 01/08/21 documented as of this encounter
--- OUTSIDE RECORDS SUMMARY | 2025-07-07 13:32 | XMS_ITS | Encounter Summary ---
Author Organization [employer] ([place], [place], [place], [place], [place]) Address [address] [place] [address] Care Team Providers Care Aircraft Sales Representative Name Role Phone Edgar Fournier MD Primary Care Provider [phone] Edgar Fournier MD Primary Care Provider [phone] Encounter Details Date Type Department Care Team (Late st Contact Info) Description 04/13/2020 Transcribed Document [facility] Family Medicine [facility] [place] [address] ProviderAmrit MD [address] [place] [address] Social History Tobacco Use Types Packs/Day [...] at home: Medicines ??? Take or apply blbi-pon-sribtqt and prescription medicines only as told by [...] cannot use soap and water, use hand religion professor. ? Change your bandage as told by [...] 05/09/2009 Document Revised: 03/12/2019 Document Reviewed: 03/12/2019 [employer] Patient Education ? 2020 [employer] documented in this encounter Plan of Treatment Not on file documented as of this encounter Visit Diagnoses Not on filedocumented in this encounter Care Teams Aircraft Sales Representative Relationship Specialty Start Date End Date Edgar Fournier MD [address] [place] [address] PCP - General Family Medicine 01/17/23 06/26/24 Edgar Fournier MD [address] [place] [address] PCP - General Family Medicine 06/27/24 documented as of this encounter
--- OUTSIDE RECORDS SUMMARY | 2025-07-07 13:32 | XMS_ITS | Encounter Summary ---
Author Organization [facility] Address [address] [place] [address] Care Team Providers Care Customer Relations Specialist Name Role Phone Edgar Fournier MD Primary Care Provider [phone] Enrique Griffith MD Unavailable [phone] Encounter Details Date Type Department Care Team (Late st Contact Info) Description 11/14/2016 Legacy OTTR Encounter Historical OTTR [address] [place] [address] Bridgett Márquez, RN [id number] [address] [place] [address] Social History Tobacco Use Types Packs/Day Years [...] as of this encounter Care Teams Customer Relations Specialist Relationship Specialty Start Date End Date Edgar Fournier MD [address] [place] [address] PCP - General 12/25/20 Enrique Griffith MD [address] [place] [phone] Referring Physician Nephrology 01/08/21 documented as of this encounter
--- OUTSIDE RECORDS SUMMARY | 2025-07-07 13:32 | XMS_ITS | Encounter Summary ---
Author Organization [facility] Address [address] [place] [address] Care Team Providers Care Highway Patrol Officer Name Role Phone Edgar Fournier MD Primary Care Provider Enrique Griffith MD Unavailable [phone] Encounter Details Date Type Department Care Team (Late st Contact Info) Description 11/16/2016 Legacy OTTR Encounter Historical OTTR [address] [place] [address] Bridgett Márquez, RN [facility] [id number] [address] [place] [address] Social History Tobacco Use Types Packs/Day Years [...] documented as of this encounter Care Teams Highway Patrol Officer Relationship Specialty Start Date End Date Edgar Fournier MD [address] [place] [address] PCP - General 12/25/20 Enrique Griffith MD [address] [place] [address] Referring Physician Nephrology 01/08/21 documented as of this encounter
--- OUTSIDE RECORDS SUMMARY | 2025-07-07 13:32 | XMS_ITS | Encounter Summary ---
Author Organization [employer] ([place], [place], [place], [place], [place]) Address [address] [place] [address] Care Team Providers Care Pipe Setter Name Role Phone Onesimo Garcia MD Primary Care Provider [phone] Onesimo Garcia MD Primary Care Provider [phone] Encounter Details Date Type Department Care Team (Late st Contact Info) Description 04/13/2020 Transcribed Document [facility] Family Medicine [facility] [place] [address] ProviderAmrit MD [address] [place] [address] Social History Tobacco Use Types Packs/Day [...] Amrit ProviderMD - 04/13/2020 1:53 PM CDT [facility] [place] [address] AIDEN ROLLINS JR :1975 Visit Time:04/13/2020 Your Visit Summary Your Care Team Admitting Physician - D[address]NEY [facility] MD-[facility] Attending Physician - [address] MD-NEP Primary [...] at home: Medicines ??? Take or apply wcvu-zex-hoqistp and prescription medicines only as told by [...] cannot use soap and water, use hand wood die maker. ? Change your bandage as told by [...] 05/09/2009 Document Revised: 03/12/2019 Document Reviewed: 03/12/2019 Recombine Patient Education ?? 2020 [employer]. Emergency Awareness and Preventative Care STROKE is [...] Assistance with quitting is available by contacting 8-713-HNTU-NOW. This is a free resource providing counseling, [...] was given the opportunity to ask questions. Patient/Hob Mill Operator Name: Patient/Hob Mill Operator Signature: Relationship to Patient: Clinician/Hospital Hob Mill Operator Signature: Date: documented in this encounter Plan of Treatment Not on file documented as of this encounter Visit Diagnoses Not on filedocumented in this encounter Care Teams Pipe Setter Relationship Specialty Start Date End Date Onesimo Garcia MD [address] [place], [place] [address] PCP - General Family Medicine 01/17/23 06/26/24 Onesimo Garcia MD [address] [place] [address] PCP - General Family Medicine 06/27/24 documented as of this encounter
--- OUTSIDE RECORDS SUMMARY | 2025-07-07 13:32 | XMS_ITS | Encounter Summary ---
Author Organization [facility] Address [address] [place] [address] Care Team Providers Care Software Designer Name Role Phone Edgar Fournier MD Primary Care Provider [phone] Enrique Griffith MD Unavailable [phone] Encounter Details Date Type Department Care Team (Late st Contact Info) Description 11/08/2016 Legacy OTTR Encounter Historical OTTR [address] [place] [address] Maren Friedman MD [address] [facility] [address] [place] [address] Social History Tobacco Use Types [...] report CT of the abdomen done in [facility] Continue carvedilol, history of hypertension, blood [...] as of this encounter Care Teams Software Designer Relationship Specialty Start Date End Date Edgar Fournier MD [facility] [place] [address] PCP - General 12/25/20 Enrique Griffith MD [address] [place] [address] Referring Physician Nephrology 01/08/21 documented as of this encounter
--- OUTSIDE RECORDS SUMMARY | 2025-07-07 13:32 | XMS_ITS | Encounter Summary ---
Author Organization [employer] ([place], [place], [place], [place], [place]) Address [address] [place] [address] Care Team Providers Care Horse Shoer Name Role Phone Onesimo Garcia MD Primary Care Provider [phone] Onesimo Garcia MD Primary Care Provider [phone] Encounter Details Date Type Department Care Team (Late st Contact Info) Description 04/13/2020 Transcribed Document [facility] Family Medicine Replaced by [facility] [address] ProviderAmrit MD [address] [place] [address] Social History Tobacco Use Types Packs/Day [...] Amrit ProviderMD - 04/13/2020 1:47 PM CDT [facility] [place] [address] AIDEN ROLLINS JR :1975 Visit Time:04/13/2020 Your Visit Summary Your Care Team Admitting Physician - DAPHNEY STRE[facility] Attending Physician - DAPHNEY ST[address] MD-NEP Primary [...] at home: Medicines ??? Take or apply mxdc-ivx-srvcuib and prescription medicines only as told by [...] cannot use soap and water, use hand chair finisher. ? Change your bandage as told by [...] 05/09/2009 Document Revised: 03/12/2019 Document Reviewed: 03/12/2019 [employer] Patient Education ?? 2020 [employer] Emergency Awareness and Preventative Care STROKE [...] Assistance with quitting is available by contacting 5-986-FRBG-NOW. This is a free resource providing counseling, [...] was given the opportunity to ask questions. Patient/Web Knitter Name: Patient/Web Knitter Signature: Relationship to Patient: Clinician/Hospital Web Knitter Signature: Date: documented in this encounter Plan of Treatment Not on file documented as of this encounter Visit Diagnoses Not on filedocumented in this encounter Care Teams Horse Shoer Relationship Specialty Start Date End Date Onesimo Garcia MD [address] [place], [place] [address] PCP - General Family Medicine 01/17/23 06/26/24 Onesimo Garcia MD [address] [place] [address] PCP - General Family Medicine 06/27/24 documented as of this encounter
--- OUTSIDE RECORDS SUMMARY | 2025-07-07 13:32 | XMS_ITS | Encounter Summary ---
Author Organization [facility] Address [address] [place] [address] Care Team Providers Care Lathe Machinist Name Role Phone Edgar Fournier MD Primary Care Provider Enrique Griffith MD Unavailable Encounter Details Date Type Department Care Team (Late st Contact Info) Description 10/24/2016 Legacy OTTR Encounter Historical OTTR [address] [place] [address] Sandrita Ferguson, TITLE LAWYER [address] [facility] [address] [place] [address] Social History Tobacco Use Types Packs/Day Years [...] - [place]/ZIP Co de Phone Number EXTERNAL LAB * OTTR LAB RESULTS (MANUAL) (10/22/2016 4:06 PM EST) External Estimated GFR 76.85 EXTERNAL LAB 10/22/2016 4:06 PM EST Narrative EXTERNAL LAB - 10/22/2016 4:48 PM EST Automated LAB Interface Historical Provider LAB BLOOD ORDERABLES Final R esult Performing Organization Address City/[facility]/ZIP Co de Phone Number EXTERNAL LAB * OTTR LAB RESULTS (MANUAL) (10/22/2016 2:24 AM EST) External Estimated GFR 80.17 EXTERNAL LAB 10/22/2016 2:24 AM EST Narrative EXTERNAL LAB - 10/22/2016 3:19 AM EST Automated LAB Interface Historical Provider LAB BLOOD ORDERABLES Final R esult Performing Organization Address City/[facility] [place]/[facility] Co de Phone Number EXTERNAL LAB documented in this encounter Visit Diagnoses Not on filedocumented in this encounter Additional Health Concerns Infection Onset Date Last Indicated Resolved Time COVID-19 Rule-Out 11/08/2021 11/08/2021 11/08/2021 8:06 AM EDT documented as of this encounter Care Teams Lathe Machinist Relationship Specialty Start Date End Date Edgar Fournier MD [address] [place] [address] PCP - General 12/25/20 Enrique Griffith MD [address] [place] [address] Referring Physician Nephrology 01/08/21 documented as of this encounter
--- OUTSIDE RECORDS SUMMARY | 2025-07-07 13:32 | XMS_ITS | Encounter Summary ---
Author Organization [facility] Address [address] [place] [address] Care Team Providers Care Voltage Tester Name Role Phone Edgar Fournier MD Primary Care Provider Enrique Griffith MD Unavailable [phone] Encounter Details Date Type Department Care Team (Late st Contact Info) Description 10/30/2016 Legacy OTTR Encounter Historical OTTR [address] [place] [address] Bridgett Márquez, RN [facility] LIVER [id number] [address] [place] [address] Social History Tobacco Use Types Packs/Day Years [...] documented as of this encounter Care Teams Voltage Tester Relationship Specialty Start Date End Date Edgar Fournier MD [address] [place] [address] PCP - General 12/25/20 Enrique Griffith MD [address] [place] [address] Referring Physician Nephrology 01/08/21 documented as of this encounter
--- OUTSIDE RECORDS SUMMARY | 2025-07-07 13:33 | XMS_ITS | Encounter Summary ---
Author Organization [facility] Address [address] [place] [address] Care Team Providers Care Open Pit Quarry Supervisor Name Role Phone Edgar Fournier MD Primary Care Provider Enrique Griffith MD Unavailable [phone] Encounter Details Date Type Department Care Team (Late st Contact Info) Description 07/14/2017 Legacy OTTR Encounter Historical OTTR [address] [place] [address] Raquel Toribio, [facility] [address] Social History Tobacco Use Types Packs/Day Years [...] documented as of this encounter Care Teams Open Pit Quarry Supervisor Relationship Specialty Start Date End Date Edgar Fournier MD [address] [place] [address] PCP - General 12/25/20 Enrique Griffith MD [address] [place] [address] Referring Physician Nephrology 01/08/21 documented as of this encounter
--- OUTSIDE RECORDS SUMMARY | 2025-07-07 13:33 | XMS_ITS | Encounter Summary ---
Author Organization [facility] Address [address] [place] [address] Care Team Providers Care Psych Sales Specialist Name Role Phone Maile Valles RN Unavailable Unavail able Estephania Sharif PharmD Unavailable Christine Khari Caraballo MD Unavailable [phone] Source Comments This information has been disclosed [...] release of HIV test results or diagnoses. [id number] Health Encounter Details Date Type Department Care Team (Late st Contact Info) Description 05/29/2025 Orders Only [facility] Liver Transplant at [place] [address] [facility] [address] [place] [address] Maile Valles, JANA S/P liver transplant ([facility]) (Primary Dx); Immunosuppression ([facility]) Social History Tobacco Use Types Packs/Day Years Used Date Smoking Tobacco: Never Smokeless Tobacco: Never Alcohol Use Standard Drinks/Week Comments Never 0 (1 standard drink = 0.6 oz pur e alcohol) [facility] Utilities Answer Date Recorded In the past 12 months has th e [employer], gas, oil, or water company threatened to [...] any time in the past 12 m [facility], were you homeless or living in a jail (including now)? No 12/03/2024 Yearly Questionnaire Answer [...] of this encounter Plan of Treatment Scheduled Orders Name Type Priority Associated Diagnoses Orde r Schedule Hepatic Function Panel Lab Routine S/P liver transplant (CMS-HCC) Immunosuppression [...] documented as of this encounter Care Teams Psych Sales Specialist Relationship Specialty Start Date End Date Maile Valles RN Txp Post Coordinator Transplant Hepatology 11/07/17 Estephania Sharif, PharmD Pharmacist Pharmacist 11/11/19 Khari Lema MD [address] [facility] [address] [place] [address] Txp Last Chalker Transplant Hepatology 05/29/25 documented as of this encounter
--- OUTSIDE RECORDS SUMMARY | 2025-07-07 13:33 | XMS_ITS | Encounter Summary ---
Author Organization [facility] Address [address] [place] [address] Care Team Providers Care Inspecting Engineer Name Role Phone Edgar Fournier MD Primary Care Provider Enrique Griffith MD Unavailable [phone] Encounter Details Date Type Department Care Team (Late st Contact Info) Description 06/02/2017 [facility] OT[facility] Encounter Historical OTTR [address] [place] [address] Roxi Vazquez [facility] [address] [place] [address] Social History Tobacco Use Types Packs/Day Years [...] documented as of this encounter Care Teams Inspecting Engineer Relationship Specialty Start Date End Date Edgar Fournier MD [address] [place] [address] PCP - General 12/25/20 Enrique Griffith MD [address] [place] [address] Referring Physician Nephrology 01/08/21 documented as of this encounter
--- OUTSIDE RECORDS SUMMARY | 2025-07-07 13:33 | XMS_ITS | Encounter Summary ---
Author Organization [facility] Address [address] [place] [address] Care Team Providers Care Pilot Control Operator Helper Name Role Phone Maile Valles RN Unavailable Unavail able Jack Ordoñez MD Unavailable Estephania Sharif PharmD Unavailable Christine vailable Source [...] release of HIV test results or diagnoses. [id number] Health Encounter Details Date Type Department Care Team (Late st Contact Info) Description 05/28/[address] [facility] Liver Transplant at [address] [address] Bridgett Ansari MA Social History Tobacco Use Types Packs/Day Years Used Date Smoking Tobacco: Never Smokeless Tobacco: Never Alcohol Use Standard Drinks/Week Comments Never 0 (1 standard drink = 0.6 oz pur e alcohol) [facility] Utilities Answer Date Recorded In the [...] any time in the past 12 m [facility], were you homeless or living in a [place] health care facility (including now)? No 12/03/2024 Yearly Questionnaire Answer Date Record ed Do you need any assistance w ith obtaining housing, meals, medication, transportation or medical equipment? No 04/21 Assistance needed for: Not on file 09/08/202 5 Yearly Questionnaire Answer Date Record ed [...] documented as of this encounter Care Teams Pilot Control Operator Helper Relationship Specialty Start Date End Date Maile Valles RN Txp Post Coordinator Transplant Hepatology 11/07/17 Jack Ordoñez MD Consulting Physician Transplant Hepatology 01/05/18 Estephania Sharif PharmD Pharmacist Pharmacist 11/11/19 documented as of this encounter
--- OUTSIDE RECORDS SUMMARY | 2025-07-07 13:33 | XMS_ITS | Encounter Summary ---
Author Organization [facility] Address [address] [place] [address] Care Team Providers Care Derrick Worker Name Role Phone Edgar Fournier MD Primary Care Provider [phone] Enrique Griffith MD Unavailable [phone] Encounter Details Date Type Department Care Team (Late st Contact Info) Description 04/28/2017 [facility] OTTR Encounter Historical OTTR [address] [place] [address] Christa Knowles [address] Social History Tobacco Use Types Packs/Day Years [...] EDT DOS 05/04/17 Op Cpt TIPS Revision 65384, NPR per online tool and automated phone system. Nurse and IR notified via email. documented in this encounter Plan of Treatment Not on file documented as of this encounter Visit Diagnoses Not on filedocumented in this encounter Additional Health Concerns Infection Onset Date Last Indicated Resolved Time COVID-19 Rule-Out 11/08/2021 11/08/2021 11/08/2021 8:06 AM EDT documented as of this encounter Care Teams Derrick Worker Relationship Specialty Start Date End Date Edgar Fournier MD [address] [place] [address] PCP - General 12/25/20 Enrique Griffith MD [address] [place] [address] Referring Physician Nephrology 01/08/21 documented as of this encounter
--- OUTSIDE RECORDS SUMMARY | 2025-07-07 13:33 | XMS_ITS | Encounter Summary ---
Author Organization [facility] Address [address] [place] [address] Care Team Providers Care Import Export Clerk Name Role Phone Edgar Fournier MD Primary Care Provider Enrique Griffith MD Unavailable [phone] Encounter Details Date Type Department Care Team (Late st Contact Info) Description 05/31/2017 [facility] OTTR Encounter Historical OTTR [address] [place] [address] Roxi Vazquez [facility] [address] [place] [address] Social History Tobacco Use Types Packs/Day Years Used Date Smoking Tobacco: Never Assessed Sex and Gender Information Value Date Recorded Sex Assigned at Not on file Legal Sex Male 6:10 PM EDT Gender Identity Not on file Sexual Orientation Straight 03/02/2021 10 :04 AM EDT documented as of this encounter Miscellaneous Notes * Progress Notes - George November M - 05/31/2017 2:02 PM EDT Patient called [...] documented as of this encounter Care Teams Import Export Clerk Relationship Specialty Start Date End Date Edgar Fournier MD [address] [place] [address] PCP - General 12/25/20 Enrique Griffith MD [address] [place] [address] Referring Physician Nephrology 01/08/21 documented as of this encounter
--- OUTSIDE RECORDS SUMMARY | 2025-07-07 13:33 | XMS_ITS ---
Author Organization [facility] Address [address] [place] [address] Care Team Providers Care Traffic Clerk Name Role Phone Maile Valles RN Unavailable Unavail able Estephania Sharif PharmD Unavailable Christine Edgar Tolentino MD Primary Care Provider [phone] Khari Lema MD Unavailable [phone] Stan Moise RN Unavailable Unavail able Transplant Episode Kidney Candidate [facility] ([place] [place]) [facility] Evaluation began on 02/04/2025 Marked as Active on 02/04/2025 Kidney CoordinatorStan Moise RN Phone: N/A Fax: N/A Email: N/A Scores Score Value Updated Exceptions/Reas ons CPRA Not available EPTS (Calc) 81 07/07/2025 [place] Organ Diagnosis Organ Primary Contributory Kidney Other, Specify - Transplant Comp lications Care Team Name Role Phone Fax Email Stan Moise RN Kidney Coordinator N/A N/A N/A Stan Moise RN Registered Nurse N/A N/A N/A Man Sky MD Referring Physician [phone] N/A Events Pre-Transplant Referred: 11/05/2024 Evaluation began: 02/04/2025 Committee: 02/10/2025 Dialysis History Dialysis History Start End Type Comments Center 11/28/2022 Home Hemodialysis [phone] [facility] 09/26/2019 11/25/2022 Hemodialysis [facility] Dialysis Center Information Center Phone Fax Address [facility] [phone] 3284 [facility], [address] [address] [facility] [phone] [place] [address]
--- OUTSIDE RECORDS SUMMARY | 2025-07-07 13:33 | XMS_ITS | Encounter Summary ---
Author Organization [facility] Address [address] [place] [address] Care Team Providers Care Railroad Purchasing Agent Name Role Phone Edgar Fouriner MD Primary Care Provider Enrique Griffith MD Unavailable [phone] Encounter Details Date Type Department Care Team (Late st Contact Info) Description 07/04/2017 [facility] OTTR Encounter Historical OTTR [address] [place] [address] Roxi Vazquez [facility] [address] [place] [address] Social History Tobacco Use Types Packs/Day Years [...] as of this encounter Care Teams Railroad Purchasing Agent Relationship Specialty Start Date End Date Edgar Fournier MD [address] [place] [address] PCP - General 12/25/20 Enrique Griffith MD [address] [place] [address] Referring Physician Nephrology 01/08/21 documented as of this encounter
--- OUTSIDE RECORDS SUMMARY | 2025-07-07 13:33 | XMS_ITS | Encounter Summary ---
Author Organization [facility] Address [address] [place] [address] Care Team Providers Care Lead Application Architect Name Role Phone Edgar Fournier MD Primary Care Provider [phone] Enrique Griffith MD Unavailable [phone] Encounter Details Date Type Department Care Team (Late st Contact Info) Description 05/30/2017 [facility] OTTR Encounter Historical OTTR [address] [place] [address] Roxi Vazquez [facility] [address] [place] [address] Social History Tobacco Use Types Packs/Day Years [...] as of this encounter Care Teams Lead Application Architect Relationship Specialty Start Date End Date Edgar Fournier MD [address] [place] [address] PCP - General 12/25/20 Enrique Griffith MD [address] [place] [phone] Referring Physician Nephrology 01/08/21 documented as of this encounter
--- OUTSIDE RECORDS SUMMARY | 2025-07-07 13:33 | XMS_ITS | Clinical Summary ---
Author Organization [employer] ([place], [place], [place], [place], [place]) Address [address] [place] [address] Care Team Providers Care Unstacker Name Role Phone Edgar Fournier MD Primary Care Provider [phone] Allergies Active Allergy Reactions Criticality Noted Date [...] mouth 3 (three) times a week MON/WED/FRI. 11/14/19 24 Active entecavir (BARACLUDE) 0.5 MG [...] been transmitting cardiomems - will work with [employer] to trouble shoot - aim to drive pressures down Pain 05/14/2024 Hyperkalemia 05/07/2024 AVF (arteriovenous fistula) 08/11/2023 Gastroesophageal reflux disease 07/18/2023 Obesity, Class III, BMI 40-49.9 (morbid obesity) 11/08/2021 Overview (05/14/2024): Lifestyle modification including weight loss was discussed again during this encounter. History of liver transplant 04/28/2020 Overview (05/14/2024): Active follow-up at [place], [place] Hyperlipidemia 04/13/2020 Type 2 diabetes mellitus [...] and during recent titration at [facility]. ESRD (end stage renal disease) on [...] living situation today? I have a [facility] place to live 08/05/2024 Think about the [...] Do you speak a language other than Somali at [facility]? No 08/05/2024 Do you want help with [...] Nonreactive Nonreactive, Equivocal 08/06/2024 2:53 AM EST [facility] Hep B C IgM Nonreactive Nonreactive 08/06/2024 2:53 AM EST [facility] Hepatitis B surface antigen Nonreactive Nonreactive, Equivocal 08/06/2024 2:53 AM EST [facility] Hepatitis C Ab Nonreactive Nonreactive, Equivocal 08/06/2024 2:53 AM EST [facility] Blood Venipuncture / Unknown 08/05/2024 11:24 PM EST 08/05/2024 11:29 PM EST [facility] - 08/06/2024 2:53 AM EST Hepatitis [...] MD LAB BLOOD ORDERABLES Final Resu lt [facility] [address] [place] [id number], [facility] [phone] from Last 3 Months or Most Recently Relevant to Health Maintenance Insurance MEDICAID [id number] Member Subscriber Plan / Payer (Ef fective 2023-Present) Name:Aiden Stauffer Jr. Relation to Subscriber:Self Name:Aiden Stauffer Jr. Payer ID:[id number] Group ID:Not on file Type:Not on file [address] ACC[address] HMO [address] Advance Directives For more information, please contact: [phone] Documents on File Type Date Recorded Patient Accessioner Expl anation Advance Directives and Livin g [...] 12:52 PM 05/13/2024 12:59 PM Care Teams Unstacker Relationship Specialty Start Date End Date Edgar Fournier MD [address] [place] [address] PCP - General Family Medicine 06/27/24
--- OUTSIDE RECORDS SUMMARY | 2025-07-07 13:33 | XMS_ITS | Encounter Summary ---
Author Organization [facility] Address [address] [place] [address] Care Team Providers Care Bi Architect Name Role Phone Edgar Fournier MD Primary Care Provider Enrique Griffith MD Unavailable [phone] Encounter Details Date Type Department Care Team (Late st Contact Info) Description 06/30/2017 [facility] OTTR Encounter Historical OTTR [address] [place] [address] Jaren Naqvi MD [address] [place] [address] Social History Tobacco Use Types Packs/Day Years [...] documented as of this encounter Care Teams Bi Architect Relationship Specialty Start Date End Date Edgar Fournier MD [address] [place] [address] PCP - General 12/25/20 Enrique Griffith MD [address] [place] [address] Referring Physician Nephrology 01/08/21 documented as of this encounter
--- OUTSIDE RECORDS SUMMARY | 2025-07-07 13:33 | XMS_ITS | Encounter Summary ---
Author Organization [facility] Address [address] [place] [address] Care Team Providers Care Prints And Drawings Curator Name Role Phone Edgar Fournier MD Primary Care Provider Enrique Griffith MD Unavailable [phone] Encounter Details Date Type Department Care Team (Late st Contact Info) Description 04/14/2017 [facility] OTTR Encounter Historical OTTR [address] [place] [address] Shara Huff, HULL AND DECK REMOVER, DNP [address] [facility] [address] [place] [address] Social History Tobacco Use Types Packs/Day Years [...] documented as of this encounter Care Teams Prints And Drawings Curator Relationship Specialty Start Date End Date Edgar Fournier MD [address] [place] [address] PCP - General 12/25/20 Enrique Griffith MD [address] [place] [address] Referring Physician Nephrology 01/08/21 documented as of this encounter
--- OUTSIDE RECORDS SUMMARY | 2025-07-07 13:33 | XMS_ITS | Encounter Summary ---
Author Organization [facility] Address [address] [place] [address] Care Team Providers Care Sheet Metal Former Name Role Phone Edgar Fournier MD Primary Care Provider [phone] Enrique Griffith MD Unavailable [phone] Encounter Details Date Type Department Care Team (Late st Contact Info) Description 06/21/2017 [facility] OTTR Encounter Historical OTTR [address] [place] [address] Vera Rosales [address] Social History Tobacco Use Types Packs/Day Years [...] as of this encounter Care Teams Sheet Metal Former Relationship Specialty Start Date End Date Edgar Fournier MD [facility] [place] [address] PCP - General 12/25/20 Enrique Griffith MD [address] [place] [address] Referring Physician Nephrology 01/08/21 documented as of this encounter
--- OUTSIDE RECORDS SUMMARY | 2025-07-07 13:33 | XMS_ITS | Encounter Summary ---
Author Organization [facility] Address [address] [place] [address] Care Team Providers Care City Engineer Name Role Phone Edgar Fournier MD Primary Care Provider Enrique Griffith MD Unavailable [phone] Encounter Details Date Type Department Care Team (Late st Contact Info) Description 05/17/2017 [facility] OTTR Encounter Historical OTTR [address] [place] [address] Bridgett Márquez, RN [facility] [id number] [address] [place] [address] Social History Tobacco Use Types Packs/Day Years [...] documented as of this encounter Care Teams City Engineer Relationship Specialty Start Date End Date Edgar Fournier MD [address] [place] [address] PCP - General 12/25/20 Enrique Griffith MD [address] [place] [address] Referring Physician Nephrology 01/08/21 documented as of this encounter
--- OUTSIDE RECORDS SUMMARY | 2025-07-07 13:33 | XMS_ITS | Encounter Summary ---
Author Organization [facility] Address [address] [place] [address] Care Team Providers Care Regional Company Truck Driver Name Role Phone Edgar Fournier MD Primary Care Provider [phone] Enrique Griffith MD Unavailable [phone] Encounter Details Date Type Department Care Team (Late st Contact Info) Description 05/08/2017 [facility] OTTR Encounter Historical OTTR [address] [place] [address] Carla Hammonds [address] Social History Tobacco Use Types Packs/Day Years [...] as of this encounter Care Teams Regional Company Truck Driver Relationship Specialty Start Date End Date Edgar Fournier MD [address] [place] [address] PCP - General 12/25/20 Enrique Griffith MD [address] [place] [address] Referring Physician Nephrology 01/08/21 documented as of this encounter
--- OUTSIDE RECORDS SUMMARY | 2025-07-07 13:33 | XMS_ITS | Encounter Summary ---
Author Organization [facility] Address [address] [place] [address] Care Team Providers Care Pole Truck Driver Name Role Phone Edgar Fournier MD Primary Care Provider [phone] Enrique Griffith MD Unavailable [phone] Encounter Details Date Type Department Care Team (Late st Contact Info) Description 06/21/2017 Legacy OTTR Encounter Historical OTTR [address] [place] [address] Vera Rosales [address] Social History Tobacco Use Types Packs/Day Years [...] if you have any questions about this [phone]. documented in this encounter Plan of Treatment Not on file documented as of this encounter Visit Diagnoses Not on filedocumented in this encounter Additional Health Concerns Infection Onset Date Last Indicated Resolved Time COVID-19 Rule-Out 11/08/2021 11/08/2021 11/08/2021 8:06 AM EDT documented as of this encounter Care Teams Pole Truck Driver Relationship Specialty Start Date End Date Edgar Fournier MD [address] [place] [address] PCP - General 12/25/20 Enrique Griffith MD [address] [place] [address] Referring Physician Nephrology 01/08/21 documented as of this encounter
--- OUTSIDE RECORDS SUMMARY | 2025-07-07 13:33 | XMS_ITS | Encounter Summary ---
Author Organization [facility] Address [address] [place] [address] Care Team Providers Care Monorail Operator Name Role Phone Edgar Fournier MD Primary Care Provider Enrique Griffith MD Unavailable [phone] Encounter Details Date Type Department Care Team (Late st Contact Info) Description 06/05/2017 Legacy OTTR Encounter Historical OTTR [address] [place] [address] Bridgett Márquez, RN [facility] [id number] [address] [place] [address] Social History Tobacco Use Types Packs/Day Years [...] documented as of this encounter Care Teams Monorail Operator Relationship Specialty Start Date End Date Edgar Fournier MD [address] [place] [address] PCP - General 12/25/20 Enrique Griffith MD [address] [place] [address] Referring Physician Nephrology 01/08/21 documented as of this encounter
--- OUTSIDE RECORDS SUMMARY | 2025-07-07 13:33 | XMS_ITS ---
Author Organization [facility] Address [address] [place] [address] Care Team Providers Care Sensitizer Name Role Phone Maile Valles RN Unavailable Unavail able Estephania Sharif PharmD Unavailable Christine Edgar Tolentino MD Primary Care Provider [phone] Khari Lema MD Unavailable [phone] Stan Moise RN Unavailable Unavail able Transplant Episode Liver Recipient [facility] ([place], [place]) [facility] Organ Received: Liver Transplanted on 10/08/2017 Marked as Active Follow-up on 10/08/2017 Liver CoordinatorMaile Valles RN Phone: N/A Fax: N/A Email: N/A [place] Organ Diagnosis Organ Primary Contributory Liver Cirrhosis: [...] N/A N/A N/A Khari Lema MD Txp Vacuum Cleaner Repairer [phone] N/A Edgar Fournier MD Referring Physician [phone] N/A N/A Events Post-Transplant Pre-Transplant Admitted: 10/07/2017 Referred: 06/22/2017 Transplanted: 10/08/2017 Evaluation began: 8 Discharged: 10/27/2017 Committee: 08/29/2017 Center waitlisted: 8 Dialysis History Dialysis History Start End Type Comments Center 11/28/2022 Home Hemodialysis [phone] [facility] 09/26/2019 11/25/2022 Hemodialysis [facility] Dialysis Center Information Center Phone Fax Address [facility] [phone] [address] [facility], [address] [place] [address] [facility] [phone] [place] [address]
--- OUTSIDE RECORDS SUMMARY | 2025-07-07 13:33 | XMS_ITS | Encounter Summary ---
Author Organization [facility] Address [address] [place] [address] Care Team Providers Care Pipefitter Name Role Phone Edgar Fournier MD Primary Care Provider [phone] Enrique Griffith MD Unavailable [phone] Encounter Details Date Type Department Care Team (Late st Contact Info) Description 04/19/2017 Legacy OTTR Encounter Historical OTTR [address] [place] [address] Roxi Vazquez [facility] [address] [place] [address] Social History Tobacco Use Types Packs/Day Years [...] documented as of this encounter Care Teams Pipefitter Relationship Specialty Start Date End Date Edgar Fournier MD [address] [place] [address] PCP - General 12/25/20 Enrique Griffith MD [address] [place] [phone] Referring Physician Nephrology 01/08/21 documented as of this encounter
--- OUTSIDE RECORDS SUMMARY | 2025-07-07 13:33 | XMS_ITS | Encounter Summary ---
Author Organization [facility] Address [address] [place] [address] Care Team Providers Care Clerical Clerk Name Role Phone Edgar Fournier MD Primary Care Provider [phone] Enrique Griffith MD Unavailable [phone] Encounter Details Date Type Department Care Team (Late st Contact Info) Description 04/18/2017 [facility] OT[facility] Encounter Historical OTTR [address] [place] [address] Erika Truong, RN [facility] [id number] [address] [place] [address] Social History Tobacco Use Types Packs/Day Years [...] - 04/18/2017 1:53 PM EDT orders in [facility] for TIPS revision - sedation form in OTTR all docs documented in this encounter Plan of Treatment Not on file documented as of this encounter Visit Diagnoses Not on filedocumented in this encounter Additional Health Concerns Infection Onset Date Last Indicated Resolved Time COVID-19 Rule-Out 11/08/2021 11/08/2021 11/08/2021 8:06 AM EDT documented as of this encounter Care Teams Clerical Clerk Relationship Specialty Start Date End Date Edgar Fournier MD [address] [place] [address] PCP - General 12/25/20 Enrique Griffith MD [address] [place] [address] Referring Physician Nephrology 01/08/21 documented as of this encounter
--- OUTSIDE RECORDS SUMMARY | 2025-07-07 13:33 | XMS_ITS | Encounter Summary ---
Author Organization [facility] Address [address] [place] [address] Care Team Providers Care Fence Erector Name Role Phone Edgar Fournier MD Primary Care Provider [phone] Enrique Griffith MD Unavailable [phone] Encounter Details Date Type Department Care Team (Late st Contact Info) Description 05/10/2017 [facility] OTTR Encounter Historical OTTR [address] [place] [address] Christa Knowles [address] Social History Tobacco Use Types Packs/Day Years [...] Cpt US Abd Doppler w/ [employer] [id number], 06289, both NPR per [place] online pre-cert tool and automated system. Nurse, APM and Rad updated. documented in this encounter Plan of Treatment Not on file documented as of this encounter Visit Diagnoses Not on filedocumented in this encounter Additional Health Concerns Infection Onset Date Last Indicated Resolved Time COVID-19 Rule-Out 11/08/2021 11/08/2021 11/08/2021 8:06 AM EDT documented as of this encounter Care Teams Fence Erector Relationship Specialty Start Date End Date Edgar Fournier MD [address] [place] [address] PCP - General 12/25/20 Enrique Griffith MD [address] [place] [address] Referring Physician Nephrology 01/08/21 documented as of this encounter
--- OUTSIDE RECORDS SUMMARY | 2025-07-07 13:33 | XMS_ITS | Encounter Summary ---
Author Organization [facility] Address [address] [place] [address] Care Team Providers Care Dry Curer Name Role Phone Edgar Fournier MD Primary Care Provider [phone] Enrique Griffith MD Unavailable [phone] Encounter Details Date Type Department Care Team (Late st Contact Info) Description 06/22/2017 [facility] OTTR Encounter Historical OTTR [address] [place] [address] Vera Rsoales [address] Social History Tobacco Use Types Packs/Day Years [...] as of this encounter Care Teams Dry Curer Relationship Specialty Start Date End Date Edgar Fournier MD [address] [place] [address] PCP - General 12/25/20 Enrique Griffith MD [address] [place] [address] Referring Physician Nephrology 01/08/21 documented as of this encounter
--- OUTSIDE RECORDS SUMMARY | 2025-07-07 13:33 | XMS_ITS | Encounter Summary ---
Author Organization [facility] Address [facility] [place] [address] Care Team Providers Care Equipment Coordinator Name Role Phone Maile Valles RN Unavailable Unavail able Estephania Sharif PharmD Unavailable Christine Khari Caraballo MD Unavailable [phone] Source Comments This information has been disclosed [...] release of HIV test results or diagnoses. [id number] Health Encounter Details Date Type Department Care Team (Late st Contact Info) Description 06/06/2025 Telephone [facility] Transplant at [address] [place] [address] Stan Moise, JANA Social History Tobacco Use Types Packs/Day Years Used Date Smoking Tobacco: Never Smokeless Tobacco: Never Alcohol Use Standard Drinks/Week Comments Never 0 (1 standard drink = 0.6 oz pur e alcohol) [facility] Utilities Answer Date Recorded In the past 12 months has [employer], gas, oil, or water company threatened to [...] as of this encounter Care Teams Equipment Coordinator Relationship Specialty Start Date End Date Maile Valles RN Txp Post Coordinator Transplant Hepatology 11/07/17 Estephania Sharif, DarrianD Pharmacist Pharmacist 11/11/19 Khari Lema MD [address] [facility] [address] [place] [address] Txp Addiction Psychiatrist Transplant Hepatology 05/29/25 documented as of this encounter
--- OUTSIDE RECORDS SUMMARY | 2025-07-07 13:33 | XMS_ITS | Referral Summary ---
Author Organization [facility] ([place], [place], [place], [place], [place]) Address [address] [place] [address] Care Team Providers Care Grove Superintendent Name Role Phone Edgar Fournier MD Primary Care Provider [phone] Allergies Active Allergy Reactions Criticality Noted Date [...] been transmitting cardiomems - will work with [employer] to trouble shoot - aim to drive pressures down Pain 05/14/2024 Hyperkalemia 05/07/2024 AVF (arteriovenous fistula) 08/11/2023 Gastroesophageal reflux disease 07/18/2023 Obesity, Class III, BMI 40-49.9 (morbid obesity) 11/08/2021 Overview (05/14/2024): Lifestyle modification including weight loss was discussed again during this encounter. History of liver transplant 04/28/2020 Overview (05/14/2024): Active follow-up at [place], [place] Hyperlipidemia 04/13/2020 Type 2 diabetes mellitus [...] hospitalization at and during recent titration at [facility]. ESRD (end stage renal disease) [...] living situation today? I have a [facility] place to live 08/05/2024 Think about [...] speak a language other than [place] at [facility]? No 08/05/2024 Do you [...] Nonreactive Nonreactive, Equivocal 08/06/2024 2:53 AM EST [facility] Hep B C IgM Nonreactive Nonreactive 08/06/2024 2:53 AM EST [facility] Hepatitis B surface antigen Nonreactive Nonreactive, Equivocal 08/06/2024 2:53 AM [facility] Hepatitis C Ab Nonreactive Nonreactive, Equivocal 08/06/2024 2:53 AM [facility] Blood Venipuncture / Unknown 08/05/2024 11:24 PM EST 08/05/2024 11:29 PM EST [facility] - 08/06/2024 2:53 AM [...] MD LAB BLOOD ORDERABLES Final Resu lt [facility] [address] [phone] from Last 3 Months or Most Recently Relevant to Health Maintenance Insurance MEDICAID B Member Subscriber Plan / Payer (Ef fective 2023-Present) Name:Aiden Stauffer Jr. Relation to Subscriber:Self Name:Aiden Stauffer Jr. Payer ID:[id number] Group ID:Not on file Type:Not on file Address: [address] ACCESS O MAP Advance Directives For more information, please contact: [phone] Documents on File Type Date Recorded Patient Order Packer Expl anation Advance Directives and Livin g [...] 12:52 PM 05/13/2024 12:59 PM Care Teams Grove Superintendent Relationship Specialty Start Date End Date Edgar Fournier MD [address] [place] [address] [place] [address] PCP - General Family Medicine 06/27/24
--- OUTSIDE RECORDS SUMMARY | 2025-07-07 13:33 | XMS_ITS | Encounter Summary ---
Author Organization [facility] Address [address] [place] [address] Care Team Providers Care Software Development Advisor Name Role Phone Edgar Fournier MD Primary Care Provider [phone] Enrique Griffith MD Unavailable [phone] Encounter Details Date Type Department Care Team (Late st Contact Info) Description 04/14/2017 [facility] OTTR Encounter Historical OTTR [address] [place] [address] Fabiana Clark MD Social History Tobacco Use [...] as of this encounter Care Teams Software Development Advisor Relationship Specialty Start Date End Date Edgar Fournier MD [address] [place] [address] PCP - General 12/25/20 Enrique Griffith MD [address] [place] [address] Referring Physician Nephrology 01/08/21 documented as of this encounter
--- OUTSIDE RECORDS SUMMARY | 2025-07-07 13:33 | XMS_ITS | Encounter Summary ---
Author Organization [facility] Address [address] [place] [address] Care Team Providers Care Sheet Hanger Name Role Phone Edgar Fournier MD Primary Care Provider [phone] Enrique Griffith MD Unavailable [phone] Encounter Details Date Type Department Care Team (Late st Contact Info) Description 07/19/2017 [facility] OTTR Encounter Historical OTTR [address] [place] [address] Christa Knowles [address] Social History Tobacco Use Types Packs/Day Years [...] Op Cot US Abd Doppler w/[employer] [id number], NPR per Michelle MDCD online pre-cert look [...] EXTERNAL LAB - 08/03/2017 2:33 PM EST [facility] us Historical Provider LAB BLOOD ORDERABLES Final R esult EXTERNAL LAB documented in this encounter Visit Diagnoses Not on filedocumented in this encounter Additional Health Concerns Infection Onset Date Last Indicated Resolved Time COVID-19 Rule-Out 11/08/2021 11/08/2021 11/08/2021 8:06 AM EDT documented as of this encounter Care Teams Sheet Hanger Relationship Specialty Start Date End Date Edgar Fournier MD [address] [place] [address] PCP - General 12/25/20 Enrique Griffith MD [address] [place] [address] Referring Physician Nephrology 01/08/21 documented as of this encounter
--- OUTSIDE RECORDS SUMMARY | 2025-07-07 13:33 | XMS_ITS | Encounter Summary ---
Author Organization [facility] Address [address] [place] [address] Care Team Providers Care Serials Librarian Name Role Phone Edgar Fournier MD Primary Care Provider Enrique Griffith MD Unavailable Encounter Details Date Type Department Care Team (Late st Contact Info) Description 05/31/2017 [facility] OTTR Encounter Historical OTTR [address] [place] [address] Jaren Naqvi MD [address] [place] [address] Social History Tobacco Use Types Packs/Day Years [...] documented as of this encounter Care Teams Serials Librarian Relationship Specialty Start Date End Date Edgar Fournier MD [address] [place] [address] PCP - General 12/25/20 Enrique Griffith MD [address] [place] [phone] Referring Physician Nephrology 01/08/21 documented as of this encounter
--- OUTSIDE RECORDS SUMMARY | 2025-07-07 13:33 | XMS_ITS | Encounter Summary ---
Author Organization [facility] Address [facility] [place] [address] Care Team Providers Care Tax Evaluator Name Role Phone Edgar Fournier MD Primary Care Provider [phone] Maile Valles RN Unavailable Unavail able Jack Ordoñez MD Unavailable [phone] Estephania Sharif PharmD Unavailable Christine vailable System, Provider Not In Primary Care Provider Un available Edgar Forunier MD Primary Care Provider [phone] Khari Lema MD Unavailable [phone] Stan Moise RN Unavailable Unavail able Source Comments This [...] release of HIV test results or diagnoses. [id number] Health Encounter Details Date Type Department Care Team (Late st Contact Info) Description 01/27/2020 Orders Only [facility] Outreach Lab Test Referral Center [address] [place] [phone] Altagracia Maria A Liver replaced by transplant (CMS-HCC); Pharmacologic therapy; Encounter for therapeutic drug monitoring; Transplanted liver (CMS-HCC); Drug therapy Social History [...] - 1.5 mg/dL 01/27/2020 4:00 PM EDT [facility]ALTH [facility] Bilirubin, Direct 0.08 0.00 - 0.40 mg/dL 01/27/2020 4:00 PM EDT HEALTH LAB AST 14 13 - 39 U/L 01/27/2020 4:00 PM EDT HEALTH LAB ALT 14 7 - 52 U/L 01/27/2020 4:00 PM EDT HEALTH LAB Alkaline Phosphatase 113 36 - 125 U/L 01/27/2020 4:00 PM EDT [facility]ALTH LAB Total Protein 6.8 6.4 - 8.9 g/dL 01/27/2020 4:00 PM EDT [facility]ALTH LAB Albumin 4.3 3.5 - 5.7 g/dL 01/27/2020 4:00 PM EDT HEALTH LAB Bilirubin, Indirect 0.32 0.00 - 1.10 mg/dL 01/27/2020 4:[address] [facility] Plasma specimen (specimen) 01/27/2020 1:57 PM EDT 01/27/2020 2:51 PM EDT [facility] - 01/27/2020 4:00 PM EDT Standing labs monthly. Please fax results to [phone] Jack Ordoñez MD LAB BLOOD ORDERABLES Final Re sult Performing Organization Address [facility] Co de Phone Number [facility] [address] * (ABNORMAL) Cyclosporine level (01/27/2020 1:57 PM EDT) Cyclosporine, Blood 86(L) 100 - 400 ng/mL 01/28/2020 2:15 PM EDT [email or web address] Comment: Detection limit: 30 ng/mL. Performed via chemiluminescent microparticle immunoassay on the [employer] Completion Supervisor i1000. Whole blood specimen (specimen) 01/27/2020 1:57 PM EDT 01/27/2020 2:51 PM EDT [facility] - 01/28/2020 2:15 PM EDT Standing lab; draw frequency will vary based on condition. Fax results to [phone]. Call critical values to [phone]. Jack Ordoñez MD LAB BLOOD ORDERABLES Final Re sult Performing Organization Address [facility] Co de Phone Number [facility] [address] documented in this encounter Visit Diagnoses [...] documented as of this encounter Care Teams Tax Evaluator Relationship Specialty Start Date End Date Edgar Fournier MD [address] [place] [address] [place] [address] PCP - General 08/18/17 06/23/21 System, Provider Not In PCP - General 06/24/21 12/21/21 Edgar Fournier MD [address] [place] [address] [place] [address] PCP - General 06/12/25 Maile Valles, JNAA Txp Post Coordinator Transplant Hepatology 11/07/17 Jack Ordoñez MD Consulting Physician Transplant Hepatology 01/05/18 Estephania Sharif, DarrianD Pharmacist Pharmacist 11/11/19 Khari Lema MD [address] [facility] [address] [place] [address] Txp Superintendent Pipelines Transplant Hepatology 05/29/25 Stan Moise, RN Registered Nurse 06/26/25 documented as of this encounter
--- OUTSIDE RECORDS SUMMARY | 2025-07-07 13:33 | XMS_ITS | Encounter Summary ---
Author Organization [facility] Address [address] [place] [address] Care Team Providers Care Carpenter Assembler Name Role Phone Edgar Fournier MD Primary Care Provider [phone] Enrique Griffith MD Unavailable [phone] Encounter Details Date Type Department Care Team (Late st Contact Info) Description 07/03/2017 [facility] OTTR Encounter Historical OTTR [address] [place] [address] Bridgett Márquez, RN [id number] [address] [place] [address] Social History Tobacco Use Types Packs/Day Years [...] documented as of this encounter Care Teams Carpenter Assembler Relationship Specialty Start Date End Date Edgar Fournier MD [address] [place] [address] PCP - General 12/25/20 Enrique Griffith MD [address] [place] [address] Referring Physician Nephrology 01/08/21 documented as of this encounter
--- OUTSIDE RECORDS SUMMARY | 2025-07-07 13:33 | XMS_ITS | Encounter Summary ---
Author Organization [facility] Address [address] [place] [address] Care Team Providers Care Water Project Manager Name Role Phone Edgar Fournier MD Primary Care Provider Enrique Griffith MD Unavailable [phone] Encounter Details Date Type Department Care Team (Late st Contact Info) Description 06/22/2017 [facility] OTTR Encounter Historical OTTR [address] [place] [address] Malou Gonzalez, RN [facility] [id number] [address] [place] [address] Social History Tobacco Use Types Packs/Day Years [...] relief. Pt unhappy with care provided at [facility] ER. Pt to come to ED for assessment. documented in this encounter Plan of Treatment Not on file documented as of this encounter Visit Diagnoses Not on filedocumented in this encounter Additional Health Concerns Infection Onset Date Last Indicated Resolved Time COVID-19 Rule-Out 11/08/2021 11/08/2021 11/08/2021 8:06 AM EDT documented as of this encounter Care Teams Water Project Manager Relationship Specialty Start Date End Date Edgar Fournier MD [address] [place] [address] PCP - General 12/25/20 Enrique Griffith MD [address] [place] [address] Referring Physician Nephrology 01/08/21 documented as of this encounter
--- OUTSIDE RECORDS SUMMARY | 2025-07-07 13:33 | XMS_ITS | Encounter Summary ---
Author Organization [facility] Address [address] [place] [address] Care Team Providers Care Bioprocess Engineer Name Role Phone Edgar Fournier MD Primary Care Provider [phone] Enrique Griffith MD Unavailable [phone] Encounter Details Date Type Department Care Team (Late st Contact Info) Description 05/02/2017 [facility] OTTR Encounter Historical OTTR [address] [place] [address] Carla Hammonds [address] Social History Tobacco Use Types Packs/Day Years [...] documented as of this encounter Care Teams Bioprocess Engineer Relationship Specialty Start Date End Date Edgar Fournier MD [address] [place] [address] PCP - General 12/25/20 Enrique Griffith MD [address] [place] [address] Referring Physician Nephrology 01/08/21 documented as of this encounter
--- OUTSIDE RECORDS SUMMARY | 2025-07-07 13:33 | XMS_ITS | Encounter Summary ---
Author Organization [facility] Address [address] [place] [address] Care Team Providers Care Head Of Mathematics Name Role Phone Edgar Fournier MD Primary Care Provider [phone] Enrique Griffith MD Unavailable [phone] Encounter Details Date Type Department Care Team (Late st Contact Info) Description 05/30/2017 [facility] OTTR Encounter Historical OTTR [address] [place] [address] Carla Hammonds [address] Social History Tobacco Use Types Packs/Day Years [...] of this encounter Care Teams Head Of Mathematics Relationship Specialty Start Date End Date Edgar Fournier MD [address] [place] [address] PCP - General 12/25/20 Enrique Griffith MD [address] [place] [address] Referring Physician Nephrology 01/08/21 documented as of this encounter
--- OUTSIDE RECORDS SUMMARY | 2025-07-07 13:33 | XMS_ITS | Encounter Summary ---
Author Organization [facility] Address [address] [place] [address] Care Team Providers Care Instructional Interventionist Name Role Phone Edgar Fournier MD Primary Care Provider Enrique Griffith MD Unavailable [phone] Encounter Details Date Type Department Care Team (Late st Contact Info) Description 06/05/2017 [facility] OTTR Encounter Historical OTTR [address] [place] [address] Bridgett Márquez, RN [facility] [id number] [address] [place] [address] Social History Tobacco Use Types Packs/Day Years [...] as of this encounter Care Teams Instructional Interventionist Relationship Specialty Start Date End Date Edgar Fournier MD [address] [place] [address] PCP - General 12/25/20 Enrique Griffith MD [address] [place] [address] Referring Physician Nephrology 01/08/21 documented as of this encounter
--- OUTSIDE RECORDS SUMMARY | 2025-07-07 13:33 | XMS_ITS | Encounter Summary ---
Author Organization [facility] Address [address] [place] [address] Care Team Providers Care Photography Sales Associate Name Role Phone Edgar Fournier MD Primary Care Provider [phone] Enrique Griffith MD Unavailable [phone] Encounter Details Date Type Department Care Team (Late st Contact Info) Description 06/07/2017 [facility] OTTR Encounter Historical OTTR [address] [place] [address] Bridgett Márquez, RN HOSPITAL LIVER [id number] [address] [place] [address] Social History Tobacco Use Types Packs/Day Years [...] patient meet with surgeon during follow-up visit [id number]. Msg to AG to add on surgeon visit to 06-30-17 visit. documented in this encounter Plan of Treatment Not on file documented as of this encounter Visit Diagnoses Not on filedocumented in this encounter Additional Health Concerns Infection Onset Date Last Indicated Resolved Time COVID-19 Rule-Out 11/08/2021 11/08/2021 11/08/2021 8:06 AM EDT documented as of this encounter Care Teams Photography Sales Associate Relationship Specialty Start Date End Date Edgar Fournier MD [address] [place] [address] PCP - General 12/25/20 Enrique Griffith MD [address] [place] [phone] Referring Physician Nephrology 01/08/21 documented as of this encounter
--- OUTSIDE RECORDS SUMMARY | 2025-07-07 13:33 | XMS_ITS | Encounter Summary ---
Author Organization [facility] Address [address] [place] [address] Care Team Providers Care Candy Vendor Name Role Phone Edgar Fournier MD Primary Care Provider [phone] Enrique Griffith MD Unavailable [phone] Encounter Details Date Type Department Care Team (Late st Contact Info) Description 04/18/2017 [facility] OTTR Encounter Historical OTTR [address] [place] [address] Erika Truong, RN [facility] [id number] [address] [place] [address] Social History Tobacco Use Types Packs/Day Years [...] documented as of this encounter Care Teams Candy Vendor Relationship Specialty Start Date End Date Edgar Fournier MD [address] [place] [address] PCP - General 12/25/20 Enrique Griffith MD [address] [place] [address] Referring Physician Nephrology 01/08/21 documented as of this encounter
--- OUTSIDE RECORDS SUMMARY | 2025-07-07 13:34 | XMS_ITS | Encounter Summary ---
Author Organization [facility] Address [address] [place] [address] Care Team Providers Care Tractor Technician Name Role Phone Edgar Fournier MD Primary Care Provider [phone] Enrique Griffith MD Unavailable [phone] Encounter Details Date Type Department Care Team (Late st Contact Info) Description 11/16/2016 Legacy OTTR Encounter Historical OTTR [address] [place] [address] Roxi Vazquez [facility] [address] [place] [address] Social History Tobacco Use Types Packs/Day Years [...] after dischg. Told him I would have [facility] review and we would be i touch if needed. He verbalized understanding. documented in this encounter Plan of Treatment Not on file documented as of this encounter Visit Diagnoses Not on filedocumented in this encounter Additional Health Concerns Infection Onset Date Last Indicated Resolved Time COVID-19 Rule-Out 11/08/2021 11/08/2021 11/08/2021 8:06 AM EDT documented as of this encounter Care Teams Tractor Technician Relationship Specialty Start Date End Date Edgar Fournier MD [address] [place] [address] PCP - General 12/25/20 Enrique Griffith MD [address] [place] [phone] Referring Physician Nephrology 01/08/21 documented as of this encounter
--- OUTSIDE RECORDS SUMMARY | 2025-07-07 13:34 | XMS_ITS | Encounter Summary ---
Author Organization [facility] Address [address] [place] [address] Care Team Providers Care Director Oncology Name Role Phone Edgar Fournier MD Primary Care Provider Enrique Griffith MD Unavailable [phone] Encounter Details Date Type Department Care Team (Late st Contact Info) Description 11/21/2016 [facility] OTTR Encounter Historical OTTR [address] [place] [address] Bridgett Márquez, RN [facility] [id number] [address] [place] [address] Social History Tobacco Use Types Packs/Day Years [...] as of this encounter Care Teams Director Oncology Relationship Specialty Start Date End Date Edgar Fournier MD [address] [place] [address] PCP - General 12/25/20 Enrique Griffith MD [address] [place] [address] Referring Physician Nephrology 01/08/21 documented as of this encounter
--- OUTSIDE RECORDS SUMMARY | 2025-07-07 13:34 | XMS_ITS | Encounter Summary ---
Author Organization [facility] Address [address] [place] [address] Care Team Providers Care Oil Processing Technician Name Role Phone Edgar Fournier MD Primary Care Provider [phone] Enrique Griffith MD Unavailable [phone] Encounter Details Date Type Department Care Team (Late st Contact Info) Description 11/23/2016 Legacy OTTR Encounter Historical OTTR [address] [place] [address] Bridgett Márquez, RN [facility] [id number] [address] [place] [address] Social History Tobacco Use Types Packs/Day Years [...] as of this encounter Care Teams Oil Processing Technician Relationship Specialty Start Date End Date Edgar Fournier MD [address] [place] [address] PCP - General 12/25/20 Enrique Griffith MD [address] [place] [address] Referring Physician Nephrology 01/08/21 documented as of this encounter
--- OUTSIDE RECORDS SUMMARY | 2025-07-07 13:34 | XMS_ITS | Encounter Summary ---
Author Organization [facility] Address [address] [place] [address] Care Team Providers Care Forging Press Operator Name Role Phone Edgar Fournier MD Primary Care Provider [phone] Enrique Griffith MD Unavailable [phone] Encounter Details Date Type Department Care Team (Late st Contact Info) Description 03/08/2017 Legacy OTTR Encounter Historical OTTR [address] [place] [address] Bridgett Márquez, RN [facility] [id number] [address] [place] [address] Social History Tobacco Use Types Packs/Day Years [...] PM EDT Spoke with Dr. Evans at [facility]. he adv patient to be d/c home [...] as of this encounter Care Teams Forging Press Operator Relationship Specialty Start Date End Date Edgar Fournier MD [address] [place] [address] PCP - General 12/25/20 Enrique Griffith MD [address] [place] [address] Referring Physician Nephrology 01/08/21 documented as of this encounter
--- OUTSIDE RECORDS SUMMARY | 2025-07-07 13:34 | XMS_ITS | Encounter Summary ---
Author Organization [facility] Address [address] [place] [address] Care Team Providers Care Greenhouse Superintendent Name Role Phone Edgar Fournier MD Primary Care Provider [phone] Enrique Griffith MD Unavailable [phone] Encounter Details Date Type Department Care Team (Late st Contact Info) Description 12/16/2016 Legacy OTTR Encounter Historical OTTR [address] [place] [address] Bridgett Márquez, RN [facility] [id number] [address] [place] [address] Social History Tobacco Use Types Packs/Day Years [...] as of this encounter Care Teams Greenhouse Superintendent Relationship Specialty Start Date End Date Edgar Fournier MD [address] [place] [address] PCP - General 12/25/20 Enrique Griffith MD [address] [place] [address] Referring Physician Nephrology 01/08/21 documented as of this encounter
--- OUTSIDE RECORDS SUMMARY | 2025-07-07 13:34 | XMS_ITS | Encounter Summary ---
Author Organization [facility] Address [address] [place] [address] Care Team Providers Care Product Inspection Coordinator Name Role Phone Edgar Fournier MD Primary Care Provider [phone] Enrique Griffith MD Unavailable [phone] Encounter Details Date Type Department Care Team (Late st Contact Info) Description 12/15/2016 Legacy OTTR Encounter Historical OTTR [address] [place] [address] Bridgett Márquez, RN [facility] [id number] [address] [place] [address] Social History Tobacco Use Types Packs/Day Years [...] EXTERNAL LAB - 12/16/2016 12:48 PM EDT [facility] us Historical Provider LAB BLOOD ORDERABLES Final R esult EXTERNAL LAB documented in this encounter Visit Diagnoses Not on filedocumented in this encounter Additional Health Concerns Infection Onset Date Last Indicated Resolved Time COVID-19 Rule-Out 11/08/2021 11/08/2021 11/08/2021 8:06 AM EDT documented as of this encounter Care Teams Product Inspection Coordinator Relationship Specialty Start Date End Date Edgar Fournier MD [address] [place] [address] PCP - General 12/25/20 Enrique Griffith MD [address] [place] [address] Referring Physician Nephrology 01/08/21 documented as of this encounter
--- OUTSIDE RECORDS SUMMARY | 2025-07-07 13:34 | XMS_ITS | Encounter Summary ---
Author Organization [facility] Address [address] [place] [address] Care Team Providers Care Mulling Machine Operator Name Role Phone Edgar Fournier MD Primary Care Provider Enrique Griffith MD Unavailable [phone] Encounter Details Date Type Department Care Team (Late st Contact Info) Description 12/28/2016 Legacy OTTR Encounter Historical OTTR [address] [place] [address] Bridgett Márquez RN [facility] [id number] [address] [place] [address] Social History Tobacco Use Types Packs/Day Years [...] General 12/25/20 Enrique Griffith MD [address] [place] [address] Referring Physician Nephrology 01/08/21 documented as of this encounter
--- OUTSIDE RECORDS SUMMARY | 2025-07-07 13:34 | XMS_ITS | Encounter Summary ---
Author Organization [facility] Address [address] [place] [address] Care Team Providers Care Crew Chief Name Role Phone Edgar Fournier MD Primary Care Provider Enrique Griffith MD Unavailable Encounter Details Date Type Department Care Team (Late st Contact Info) Description 12/06/2016 Legacy OTTR Encounter Historical OTTR [address] [place] [address] Maren Friedman MD [address] [facility] [address] [place] [address] Social History Tobacco Use Types [...] documented as of this encounter Care Teams Crew Chief Relationship Specialty Start Date End Date Edgar Fournier MD [address] [place] [address] PCP - General 12/25/20 Enrique Griffith MD [address] [place] [address] Referring Physician Nephrology 01/08/21 documented as of this encounter
--- OUTSIDE RECORDS SUMMARY | 2025-07-07 13:34 | XMS_ITS | Encounter Summary ---
Author Organization [facility] Address [address] [place] [address] Care Team Providers Care Dietary Tech Name Role Phone Edgar Fournier MD Primary Care Provider [phone] Enrique Griffith MD Unavailable [phone] Encounter Details Date Type Department Care Team (Late st Contact Info) Description 01/27/2017 [facility] OTTR Encounter Historical OTTR [address] [place] [address] Bridgett Márquez, RN [facility] [id number] [address] [place] [address] Social History Tobacco Use Types Packs/Day Years [...] documented as of this encounter Care Teams Dietary Tech Relationship Specialty Start Date End Date Edgar Fournier MD [address] [place] [address] PCP - General 12/25/20 Enrique Griffith MD [address] [place] [address] Referring Physician Nephrology 01/08/21 documented as of this encounter
--- OUTSIDE RECORDS SUMMARY | 2025-07-07 13:34 | XMS_ITS | Encounter Summary ---
Author Organization [facility] Address [address] [place] [address] Care Team Providers Care Senior Java Developer Name Role Phone Edgar Fournier MD Primary Care Provider [phone] Enrique Griffith MD Unavailable [phone] Encounter Details Date Type Department Care Team (Late st Contact Info) Description 12/13/2016 Legacy OTTR Encounter Historical OTTR [address] [place] [address] Bridgett Márquez, RN [facility] [id number] [address] [place] [address] Social History Tobacco Use Types Packs/Day Years [...] 12/13/2016 9:55 AM EDT Patient to RTC 6-17. Need udpated labs from patient. documented in this encounter Plan of Treatment Not on file documented as of this encounter Visit Diagnoses Not on filedocumented in this encounter Additional Health Concerns Infection Onset Date Last Indicated Resolved Time COVID-19 Rule-Out 11/08/2021 11/08/2021 11/08/2021 8:06 AM EDT documented as of this encounter Care Teams Senior Java Developer Relationship Specialty Start Date End Date Edgar Fournier MD [address] [place] [address] PCP - General 12/25/20 Enrique Griffith MD [address] [place] [address] Referring Physician Nephrology 01/08/21 documented as of this encounter
--- OUTSIDE RECORDS SUMMARY | 2025-07-07 13:34 | XMS_ITS | Encounter Summary ---
Author Organization [facility] Address [address] [place] [address] Care Team Providers Care Piece Goods Clerk Name Role Phone Edgar Fournier MD Primary Care Provider [phone] Enrique Griffith MD Unavailable [phone] Encounter Details Date Type Department Care Team (Late st Contact Info) Description 04/04/2017 Legacy OTTR Encounter Historical OTTR [address] [place] [address] Kathya Hassan, PA [address] [facility] [address] [place] [address] Social History Tobacco Use Types Packs/Day Years [...] for transplant. He is also listed in [place]. MELD 18 (INR 1.4, Cr 1.21, Na [...] documented as of this encounter Care Teams Piece Goods Clerk Relationship Specialty Start Date End Date Edgar Fournier MD [address] [place] [address] PCP - General 12/25/20 Enrique Griffith MD [address] [place] [phone] Referring Physician Nephrology 01/08/21 documented as of this encounter
--- OUTSIDE RECORDS SUMMARY | 2025-07-07 13:34 | XMS_ITS | Encounter Summary ---
Author Organization [facility] Address [address] [place] [address] Care Team Providers Care Count Team Clerk Name Role Phone Edgar Fournier MD Primary Care Provider [phone] Enrique Griffith MD Unavailable [phone] Encounter Details Date Type Department Care Team (Late st Contact Info) Description 01/17/2017 Legacy OTTR Encounter Historical OTTR [address] [place] [address] Bridgett Márquez, RN [facility] [id number] [address] [place] [address] Social History Tobacco Use Types Packs/Day Years [...] like testing results faxed to [facility] at [phone]. Will do same. documented in this encounter [...] documented as of this encounter Care Teams Count Team Clerk Relationship Specialty Start Date End Date Edgar Fournier MD [address] [place] [address] PCP - General 12/25/20 Enrique Griffith MD [address] [place] [address] Referring Physician Nephrology 01/08/21 documented as of this encounter
--- OUTSIDE RECORDS SUMMARY | 2025-07-07 13:34 | XMS_ITS | Encounter Summary ---
Author Organization [facility] Address [address] [place] [address] Care Team Providers Care Vapor Coater Name Role Phone Edgar Fournier MD Primary Care Provider [phone] Enrique Griffith MD Unavailable [phone] Encounter Details Date Type Department Care Team (Late st Contact Info) Description 12/16/2016 Legacy OTTR Encounter Historical OTTR [address] [place] [address] Bridgett Márquez, RN [facility] [id number] [address] [place] [address] Social History Tobacco Use Types Packs/Day Years [...] EDT Patient scheduled for infusion 8am at [facility]. documented in this encounter Plan of Treatment Not on file documented as of this encounter Visit Diagnoses Not on filedocumented in this encounter Additional Health Concerns Infection Onset Date Last Indicated Resolved Time COVID-19 Rule-Out 11/08/2021 11/08/2021 11/08/2021 8:06 AM EDT documented as of this encounter Care Teams Vapor Coater Relationship Specialty Start Date End Date Edgar Fournier MD [address] [place] [address] PCP - General 12/25/20 Enrique Griffith MD [address] [place] [address] Referring Physician Nephrology 01/08/21 documented as of this encounter
--- OUTSIDE RECORDS SUMMARY | 2025-07-07 13:34 | XMS_ITS | Encounter Summary ---
Author Organization [facility] Address [address] [place] [address] Care Team Providers Care Document Control Coordinator Name Role Phone Edgar Fournier MD Primary Care Provider [phone] Enrique Griffith MD Unavailable [phone] Encounter Details Date Type Department Care Team (Late st Contact Info) Description 12/16/2016 Legacy OTTR Encounter Historical OTTR [address] [place] [address] Bridgett Márquez, RN [facility] [id number] [address] [place] [address] Social History Tobacco Use Types Packs/Day Years [...] have patient repeat labs next week. Phd [facility]- they will call me to schedule. documented in this encounter Plan of Treatment Not on file documented as of this encounter Visit Diagnoses Not on filedocumented in this encounter Additional Health Concerns Infection Onset Date Last Indicated Resolved Time COVID-19 Rule-Out 11/08/2021 11/08/2021 11/08/2021 8:06 AM EDT documented as of this encounter Care Teams Document Control Coordinator Relationship Specialty Start Date End Date Edgar Fournier MD [address] [place] [address] PCP - General 12/25/20 Enrique Griffith MD [address] [place] [address] Referring Physician Nephrology 01/08/21 documented as of this encounter
--- OUTSIDE RECORDS SUMMARY | 2025-07-07 13:34 | XMS_ITS | Encounter Summary ---
Author Organization [facility] Address [address] [place] [address] Care Team Providers Care Trade Mark Examiner Name Role Phone Edgar Fournier MD Primary Care Provider Enrique Griffith MD Unavailable Encounter Details Date Type Department Care Team (Late st Contact Info) Description 01/06/2017 Legacy OTTR Encounter Historical OTTR [address] [place] [address] Sandrita Ferguson, TRAFFIC ANALYSIS TECHNICIAN [address] [facility] [address] [place] [address] Social History Tobacco Use Types Packs/Day Years [...] documented as of this encounter Care Teams Trade Mark Examiner Relationship Specialty Start Date End Date Edgar Fournier MD [address] [place] [address] PCP - General 12/25/20 Enrique Griffith MD [address] [place] [phone] Referring Physician Nephrology 01/08/21 documented as of this encounter
--- OUTSIDE RECORDS SUMMARY | 2025-07-07 13:34 | XMS_ITS | Encounter Summary ---
Author Organization [facility] Address [address] [place] [address] Care Team Providers Care Continuous Improvement Director Name Role Phone Edgar Fournier MD Primary Care Provider [phone] Enrique Griffith MD Unavailable [phone] Encounter Details Date Type Department Care Team (Late st Contact Info) Description 11/22/2016 Legacy OTTR Encounter Historical OTTR [address] [place] [address] Bridgett Márquez, RN [facility] [id number] [address] [place] [address] Social History Tobacco Use Types Packs/Day Years [...] documented as of this encounter Care Teams Continuous Improvement Director Relationship Specialty Start Date End Date Edgar Fournier MD [address] [place] [address] PCP - General 12/25/20 Enrique Griffith MD [address] [place] [address] Referring Physician Nephrology 01/08/21 documented as of this encounter
--- OUTSIDE RECORDS SUMMARY | 2025-07-07 13:34 | XMS_ITS | Encounter Summary ---
Author Organization [facility] Address [address] [place] [address] Care Team Providers Care Compensation Programs Manager Name Role Phone Edgar Fournier MD Primary Care Provider [phone] Enrique Griffith MD Unavailable [phone] Encounter Details Date Type Department Care Team (Late st Contact Info) Description 11/17/2016 Legacy OTTR Encounter Historical OTTR [address] [place] [address] Cristal Montano [address] Social History Tobacco Use Types Packs/Day Years [...] documented as of this encounter Care Teams Compensation Programs Manager Relationship Specialty Start Date End Date Edgar Fournier MD [address] [place] [address] PCP - General 12/25/20 Enrique Griffith MD [address] [place] [address] Referring Physician Nephrology 01/08/21 documented as of this encounter
--- OUTSIDE RECORDS SUMMARY | 2025-07-07 13:34 | XMS_ITS | Encounter Summary ---
Author Organization [facility] Address [address] [place] [address] Care Team Providers Care Template Layout Worker Name Role Phone Edgar Fournier MD Primary Care Provider [phone] Enrique Griffith MD Unavailable [phone] Encounter Details Date Type Department Care Team (Late st Contact Info) Description 02/22/2017 Legacy OTTR Encounter Historical OTTR [address] [place] [address] Bridgett Márquez, RN [facility] [id number] [address] [place] [address] Social History Tobacco Use Types Packs/Day Years [...] documented as of this encounter Care Teams Template Layout Worker Relationship Specialty Start Date End Date Edgar Fournier MD [address] [place] [address] PCP - General 12/25/20 Enrique Griffith MD [address] [place] [phone] Referring Physician Nephrology 01/08/21 documented as of this encounter
--- OUTSIDE RECORDS SUMMARY | 2025-07-07 13:34 | XMS_ITS | Encounter Summary ---
Author Organization [facility] Address [address] [place] [address] Care Team Providers Care Button Tufting Machine Operator Name Role Phone Edgar Fournier MD Primary Care Provider Enrique Griffith MD Unavailable Encounter Details Date Type Department Care Team (Late st Contact Info) Description 01/05/2017 Legacy OTTR Encounter Historical OTTR [address] [place] [address] Sandrita Ferguson, DRY HOUSE WHEELER [address] [facility] [address] [place] [address] Social History Tobacco Use Types Packs/Day Years [...] type II diabetic who presented to the [facility] ED for evaluation of hematemesis and melena. [...] documented as of this encounter Care Teams Button Tufting Machine Operator Relationship Specialty Start Date End Date Edgar Fournier MD [address] [place] [address] PCP - General 12/25/20 Enrique Griffith MD [address] [place] [address] Referring Physician Nephrology 01/08/21 documented as of this encounter
--- OUTSIDE RECORDS SUMMARY | 2025-07-07 13:34 | XMS_ITS | Encounter Summary ---
Author Organization [facility] Address [address] [place] [address] Care Team Providers Care Tableau Architect Name Role Phone Edgar Fournier MD Primary Care Provider Enrique Griffith MD Unavailable Encounter Details Date Type Department Care Team (Late st Contact Info) Description 04/11/2017 Legacy OTTR Encounter Historical OTTR [address] [place] [address] Kathya Hassan PA [address] [facility] [address] [place] [address] Social History Tobacco Use Types [...] documented as of this encounter Care Teams Tableau Architect Relationship Specialty Start Date End Date Edgar Fournier MD [address] [place] [address] PCP - General 12/25/20 Enrique Griffith MD [address] [place] [phone] Referring Physician Nephrology 01/08/21 documented as of this encounter
--- OUTSIDE RECORDS SUMMARY | 2025-07-07 13:34 | XMS_ITS | Encounter Summary ---
Author Organization [facility] Address [address] [place] [address] Care Team Providers Care Prison Officer Name Role Phone Edgar Fournier MD Primary Care Provider Enrique Griffith MD Unavailable Encounter Details Date Type Department Care Team (Late st Contact Info) Description 04/13/2017 Legacy OTTR Encounter Historical OTTR [address] [place] [address] Shara Huff, SUBSTATION OPERATOR AUTOMATIC, DNP [address] [facility] [address] [place] [address] Social History Tobacco Use Types Packs/Day Years [...] Date End Date Edgar Fournier MD [address] [place] [address] PCP - General 12/25/20 Enrique Griffith MD [address] [place] [address] Referring Physician Nephrology 01/08/21 documented as of this encounter
--- OUTSIDE RECORDS SUMMARY | 2025-07-07 13:34 | XMS_ITS | Encounter Summary ---
Author Organization [facility] Address [address] [place] [address] Care Team Providers Care Dining Room Host Name Role Phone Edgar Fournier MD Primary Care Provider [phone] Enrique Griffith MD Unavailable [phone] Encounter Details Date Type Department Care Team (Late st Contact Info) Description 03/28/2017 Legacy OTTR Encounter Historical OTTR [address] [place] [address] Jack Ansari Social History Tobacco Use Types [...] documented as of this encounter Care Teams Dining Room Host Relationship Specialty Start Date End Date Edgar Fournier MD [address] [place] [address] PCP - General 12/25/20 Enrique Griffith MD [address] [place] [address] Referring Physician Nephrology 01/08/21 documented as of this encounter
--- OUTSIDE RECORDS SUMMARY | 2025-07-07 13:34 | XMS_ITS | Encounter Summary ---
Author Organization [facility] Address [address] [place] [address] Care Team Providers Care Fluid Designer Name Role Phone Edgar Fournier MD Primary Care Provider [phone] Enrique Griffith MD Unavailable [phone] Encounter Details Date Type Department Care Team (Late st Contact Info) Description 12/27/2016 Legacy OTTR Encounter Historical OTTR [address] [place] [address] Bridgett Márquez, RN [facility] [id number] [address] [place] [address] Social History Tobacco Use Types Packs/Day Years [...] 12/27/2016 1:55 PM EDT Patient to RTC 12-28-17 at 7am. documented in this encounter Plan of Treatment Not on file documented as of this encounter Visit Diagnoses Not on filedocumented in this encounter Additional Health Concerns Infection Onset Date Last Indicated Resolved Time COVID-19 Rule-Out 11/08/2021 11/08/2021 11/08/2021 8:06 AM EDT documented as of this encounter Care Teams Fluid Designer Relationship Specialty Start Date End Date Edgar Fournier MD [address] [place] [address] PCP - General 12/25/20 Enrique Griffith MD [address] [place] [address] Referring Physician Nephrology 01/08/21 documented as of this encounter
--- OUTSIDE RECORDS SUMMARY | 2025-07-07 13:34 | XMS_ITS | Encounter Summary ---
Author Organization [facility] Address [address] [place] [address] Care Team Providers Care Brewery Cellar Worker Name Role Phone Edgar Fournier MD Primary Care Provider [phone] Enrique Griffith MD Unavailable [phone] Encounter Details Date Type Department Care Team (Late st Contact Info) Description 02/22/2017 Legacy OTTR Encounter Historical OTTR [address] [place] [address] Bridgett Márquez, RN [facility] [id number] [address] [place] [address] Social History Tobacco Use Types Packs/Day Years [...] to . Phd patient- no answer. Phd [facility]- no record of patient. documented in [...] documented as of this encounter Care Teams Brewery Cellar Worker Relationship Specialty Start Date End Date Edgar Fournier MD [address] [place] [address] PCP - General 12/25/20 Enrique Griffith MD [address] [place] [address] Referring Physician Nephrology 01/08/21 documented as of this encounter
--- OUTSIDE RECORDS SUMMARY | 2025-07-07 13:34 | XMS_ITS | Encounter Summary ---
Author Organization [facility] Address [address] [place] [address] Care Team Providers Care Video Arcade Manager Name Role Phone Edgar Fournier MD Primary Care Provider [phone] Enrique Griffith MD Unavailable [phone] Encounter Details Date Type Department Care Team (Late st Contact Info) Description 01/05/2017 Legacy OTTR Encounter Historical OTTR [address] [place] [address] Bridgett Márquez, RN [facility] [id number] [address] [place] [address] Social History Tobacco Use Types Packs/Day Years [...] Date End Date Edgar Fournier MD [address] [place] [address] PCP - General 12/25/20 Enrique Griffith MD [address] [place] [phone] Referring Physician Nephrology 01/08/21 documented as of this encounter
--- OUTSIDE RECORDS SUMMARY | 2025-07-07 13:34 | XMS_ITS | Encounter Summary ---
Author Organization [facility] Address [address] [place] [address] Care Team Providers Care Technical Data Analyst Name Role Phone Edgar Fournier MD Primary Care Provider [phone] Enrique Griffith MD Unavailable [phone] Encounter Details Date Type Department Care Team (Late st Contact Info) Description 03/10/2017 Legacy OTTR Encounter Historical OTTR [address] [place] [address] Bridgett Márquez, RN [facility] [id number] [address] [place] [address] Social History Tobacco Use Types Packs/Day Years [...] for annual cardiac testing . Orders in [facility], msg to AG to schedule. documented in this encounter Plan of Treatment Not on file documented as of this encounter Visit Diagnoses Not on filedocumented in this encounter Additional Health Concerns Infection Onset Date Last Indicated Resolved Time COVID-19 Rule-Out 11/08/2021 11/08/2021 11/08/2021 8:06 AM EDT documented as of this encounter Care Teams Technical Data Analyst Relationship Specialty Start Date End Date Edgar Fournier MD [address] [place] [address] PCP - General 12/25/20 Enrique Griffith MD [address] [place] [address] Referring Physician Nephrology 01/08/21 documented as of this encounter
--- OUTSIDE RECORDS SUMMARY | 2025-07-07 13:34 | XMS_ITS | Encounter Summary ---
Author Organization [facility] Address [address] [place] [address] Care Team Providers Care Compensation Consulting Manager Name Role Phone Edgar Fournier MD Primary Care Provider [phone] Enrique Griffith MD Unavailable [phone] Encounter Details Date Type Department Care Team (Late st Contact Info) Description 01/11/2017 [facility] OTTR Encounter Historical OTTR [address] [place] [address] Bridgett Márquez, RN HOSPITAL LIVER [id number] [address] [place] [address] Social History Tobacco Use Types Packs/Day Years [...] is going to have GP find local supervisor travel information center. Will give rx for diabetic shoes when he is in clinic next week. documented in this encounter Plan of Treatment Not on file documented as of this encounter Visit Diagnoses Not on filedocumented in this encounter Additional Health Concerns Infection Onset Date Last Indicated Resolved Time COVID-19 Rule-Out 11/08/2021 11/08/2021 11/08/2021 8:06 AM EDT documented as of this encounter Care Teams Compensation Consulting Manager Relationship Specialty Start Date End Date Edgar Fournier MD [address] [place] [address] PCP - General 12/25/20 Enrique Griffith MD [address] [place] [address] Referring Physician Nephrology 01/08/21 documented as of this encounter
--- OUTSIDE RECORDS SUMMARY | 2025-07-07 13:34 | XMS_ITS | Encounter Summary ---
Author Organization [facility] Address [address] [place] [address] Care Team Providers Care Business Intelligence Analyst Name Role Phone Edgar Fournier MD Primary Care Provider Enrique Griffith MD Unavailable [phone] Encounter Details Date Type Department Care Team (Late st Contact Info) Description 01/26/2017 Legacy OTTR Encounter Historical OTTR [address] [place] [address] Christa Knowles [address] Social History Tobacco Use Types Packs/Day Years [...] PM EDT DOS 02/28/17 OP Cpt Colonoscopy 65550, Video Capsule EGD 50308, pre-cert request faxed to Michelle graves/ clinical and saved to all docs. Nurse updated. documented in this encounter Plan of Treatment Not on file documented as of this encounter Visit Diagnoses Not on filedocumented in this encounter Additional Health Concerns Infection Onset Date Last Indicated Resolved Time COVID-19 Rule-Out 11/08/2021 11/08/2021 11/08/2021 8:06 AM EDT documented as of this encounter Care Teams Business Intelligence Analyst Relationship Specialty Start Date End Date Edgar Fournier MD [address] [place] [address] PCP - General 12/25/20 Enrique Griffith MD [address] [place] [address] Referring Physician Nephrology 01/08/21 documented as of this encounter
--- OUTSIDE RECORDS SUMMARY | 2025-07-07 13:34 | XMS_ITS | Encounter Summary ---
Author Organization [facility] Address [address] [place] [address] Care Team Providers Care Fruit Preserver Name Role Phone Edgar Fournier MD Primary Care Provider Enrique Griffith MD Unavailable [phone] Encounter Details Date Type Department Care Team (Late st Contact Info) Description 02/01/2017 [facility] OTTR Encounter Historical OTTR [address] [place] [address] Christa Knowles [address] Social History Tobacco Use Types Packs/Day Years [...] PM EDT DOS 02/28/17 OP Cpt Colonoscopy 77565, NPR. Video Capsule EGD [id number] approved auth# [id number], expires 04/28/17 per November M. at [facility]. Nurse and Endo notified. documented in this [...] EXTERNAL LAB - 02/01/2017 8:40 PM EDT [facility] us Historical Provider LAB BLOOD ORDERABLES Final R esult EXTERNAL LAB documented in this encounter Visit Diagnoses Not on filedocumented in this encounter Additional Health Concerns Infection Onset Date Last Indicated Resolved Time COVID-19 Rule-Out 11/08/2021 11/08/2021 11/08/2021 8:06 AM EDT documented as of this encounter Care Teams Fruit Preserver Relationship Specialty Start Date End Date Edgar Fournier MD [address] [place] [address] PCP - General 12/25/20 Enrique Griffith MD [address] [place] [address] Referring Physician Nephrology 01/08/21 documented as of this encounter
--- OUTSIDE RECORDS SUMMARY | 2025-07-07 13:34 | XMS_ITS | Encounter Summary ---
Author Organization [facility] Address [address] [place] [address] Care Team Providers Care Regulatory Internship Name Role Phone Edgar Fournier MD Primary Care Provider [phone] Enrique Griffith MD Unavailable [phone] Encounter Details Date Type Department Care Team (Late st Contact Info) Description 03/08/2017 [facility] OTTR Encounter Historical OTTR [address] [place] [address] Bridgett Márquez, RN [facility] [id number] [address] [place] [address] Social History Tobacco Use Types Packs/Day Years [...] to to care. Paged Dr. Evans at [facility] ([phone]) documented in this encounter Plan of Treatment [...] documented as of this encounter Care Teams Regulatory Internship Relationship Specialty Start Date End Date Edgar Fournier MD [address] [place] [address] PCP - General 12/25/20 Enrique Griffith MD [address] [place] [address] Referring Physician Nephrology 01/08/21 documented as of this encounter
--- OUTSIDE RECORDS SUMMARY | 2025-07-07 13:34 | XMS_ITS | Encounter Summary ---
Author Organization [facility] Address [address] [place] [address] Care Team Providers Care Communications Associate Name Role Phone Edgar Fournier MD Primary Care Provider [phone] Enrique Griffith MD Unavailable [phone] Encounter Details Date Type Department Care Team (Late st Contact Info) Description 03/23/2017 [facility] OTTR Encounter Historical OTTR [address] [place] [address] Bridgett Márquez, RN [facility] LIVER [id number] [address] [place] [address] Social History Tobacco Use Types Packs/Day Years [...] EXTERNAL LAB - 03/23/2017 1:43 PM EDT [facility] us Historical Provider LAB BLOOD ORDERABLES Final R esult EXTERNAL LAB documented in this encounter Visit Diagnoses Not on filedocumented in this encounter Additional Health Concerns Infection Onset Date Last Indicated Resolved Time COVID-19 Rule-Out 11/08/2021 11/08/2021 11/08/2021 8:06 AM EDT documented as of this encounter Care Teams Communications Associate Relationship Specialty Start Date End Date Edgar Fournier MD [address] [place], [place] [id number] PCP - General 12/25/20 Enrique Griffith MD [address] [place] [address] Referring Physician Nephrology 01/08/21 documented as of this encounter
--- OUTSIDE RECORDS SUMMARY | 2025-07-07 13:34 | XMS_ITS | Encounter Summary ---
Author Organization [facility] Address [address] [place] [address] Care Team Providers Care Diver Tender Name Role Phone Edgar Fournier MD Primary Care Provider Enrique Griffith MD Unavailable [phone] Encounter Details Date Type Department Care Team (Late st Contact Info) Description 05/19/2017 [facility] OTTR Encounter Historical OTTR [address] [place] [address] Bridgett Márquez, RN [facility] LIVER [id number] [address] [place] [address] Social History Tobacco Use Types Packs/Day Years [...] EXTERNAL LAB - 05/19/2017 7:26 AM EDT [facility] us Historical Provider LAB BLOOD ORDERABLES Final R esult EXTERNAL LAB documented in this encounter Visit Diagnoses Not on filedocumented in this encounter Additional Health Concerns Infection Onset Date Last Indicated Resolved Time COVID-19 Rule-Out 11/08/2021 11/08/2021 11/08/2021 8:06 AM EDT documented as of this encounter Care Teams Diver Tender Relationship Specialty Start Date End Date Edgar Fournier MD [address] [place] [address] PCP - General 5/14/21 Enrique Griffith MD [address] [place] [address] Referring Physician Nephrology 01/08/21 documented as of this encounter
--- OUTSIDE RECORDS SUMMARY | 2025-07-07 13:34 | XMS_ITS | Encounter Summary ---
Author Organization [facility] Address [address] [place] [address] Care Team Providers Care Microsoft Bi Developer Name Role Phone Edgar Fournier MD Primary Care Provider [phone] Enrique Griffith MD Unavailable [phone] Encounter Details Date Type Department Care Team (Late st Contact Info) Description 02/08/2017 [facility] OTTR Encounter Historical OTTR [address] [place] [address] Bridgett Márquez, RN HOSPITAL LIVER [id number] [address] [place] [address] Social History Tobacco Use Types Packs/Day Years [...] is still weak. Will obtain [facility] from [facility] He adv he was declined at for Txp, due to insurance. documented in this encounter Plan of Treatment Not on file documented as of this encounter Visit Diagnoses Not on filedocumented in this encounter Additional Health Concerns Infection Onset Date Last Indicated Resolved Time COVID-19 Rule-Out 11/08/2021 11/08/2021 11/08/2021 8:06 AM EDT documented as of this encounter Care Teams Microsoft Bi Developer Relationship Specialty Start Date End Date Edgar Fournier MD [address] [place] [address] PCP - General 12/25/20 Enrique Griffith MD [address] [place] [address] Referring Physician Nephrology 01/08/21 documented as of this encounter
--- OUTSIDE RECORDS SUMMARY | 2025-07-07 13:34 | XMS_ITS | Encounter Summary ---
Author Organization [facility] Address [address] [place] [address] Care Team Providers Care Bpm Solution Architect Name Role Phone Edgar Fournier MD Primary Care Provider [phone] Enrique Griffith MD Unavailable Encounter Details Date Type Department Care Team (Late st Contact Info) Description 12/21/2016 [facility] OTTR Encounter Historical OTTR [address] [place] [address] Shara Huff, ANIMAL THERAPIST, DNP [address] [facility] [address] [place] [address] Social History Tobacco Use Types Packs/Day Years [...] documented as of this encounter Care Teams Bpm Solution Architect Relationship Specialty Start Date End Date Edgar Fournier MD [address] [place] [address] PCP - General 12/25/20 Enrique Griffith MD [address] [place] [address] Referring Physician Nephrology 01/08/21 documented as of this encounter
--- OUTSIDE RECORDS SUMMARY | 2025-07-07 13:34 | XMS_ITS | Encounter Summary ---
Author Organization [facility] Address [address] [place] [address] Care Team Providers Care Air Box Tester Name Role Phone Edgar Fournier MD Primary Care Provider Enrique Griffith MD Unavailable [phone] Encounter Details Date Type Department Care Team (Late st Contact Info) Description 12/06/2016 Legacy OTTR Encounter Historical OTTR [address] [place] [address] Roxi Vazquez [facility] [address] [place] [address] Social History Tobacco Use Types Packs/Day Years [...] to [facility] Registration.No prep needed. [facility] to notify patient. documented in this encounter Plan of Treatment Not on file documented as of this encounter Visit Diagnoses Not on filedocumented in this encounter Additional Health Concerns Infection Onset Date Last Indicated Resolved Time COVID-19 Rule-Out 11/08/2021 11/08/2021 11/08/2021 8:06 AM EDT documented as of this encounter Care Teams Air Box Tester Relationship Specialty Start Date End Date Edgar Fournier MD [address] [place] [address] PCP - General 12/25/20 Enrique Griffith MD [address] [place] [address] Referring Physician Nephrology 01/08/21 documented as of this encounter
--- OUTSIDE RECORDS SUMMARY | 2025-07-07 13:34 | XMS_ITS | Encounter Summary ---
Author Organization [facility] Address [address] [place] [address] Care Team Providers Care Corporate Giving Manager Name Role Phone Edgar Fournier MD Primary Care Provider [phone] Enrique Griffith MD Unavailable Encounter Details Date Type Department Care Team (Late st Contact Info) Description 12/22/2016 Legacy OTTR Encounter Historical OTTR [address] [place] [address] Sandrita Ferguson, TRANSPORT ENGINEER [address] [facility] [address] [place] [address] Social History Tobacco Use Types Packs/Day Years [...] as of this encounter Care Teams Corporate Giving Manager Relationship Specialty Start Date End Date Edgar Fournier MD [address] [place] [address] PCP - General 12/25/20 Enrique Griffith MD [address] [place] [address] Referring Physician Nephrology 01/08/21 documented as of this encounter
--- OUTSIDE RECORDS SUMMARY | 2025-07-07 13:34 | XMS_ITS | Encounter Summary ---
Author Organization [facility] Address [address] [place] [address] Care Team Providers Care Physician Extender Name Role Phone Edgar Fournier MD Primary Care Provider Enrique Griffith MD Unavailable [phone] Encounter Details Date Type Department Care Team (Late st Contact Info) Description 02/28/2017 Legacy OTTR Encounter Historical OTTR [address] [place] [address] Bridgett Márquez, RN [facility] [id number] [address] [place] [address] Social History Tobacco Use Types Packs/Day Years [...] documented as of this encounter Care Teams Physician Extender Relationship Specialty Start Date End Date Edgar Fournier MD [address] [place] [address] PCP - General 12/25/20 Enrique Griffith MD [address] [place] [address] Referring Physician Nephrology 01/08/21 documented as of this encounter
--- OUTSIDE RECORDS SUMMARY | 2025-07-07 13:34 | XMS_ITS | Encounter Summary ---
Author Organization [facility] Address [address] [place] [address] Care Team Providers Care Corrections Identification Technician Name Role Phone Edgar Fournier MD Primary Care Provider Enrique Griffith MD Unavailable [phone] Encounter Details Date Type Department Care Team (Late st Contact Info) Description 03/07/2017 Legacy OTTR Encounter Historical OTTR [address] [place] [address] Bridgett Márquez, RN [facility] LIVER [id number] [address] [place] [address] Social History Tobacco Use Types Packs/Day Years [...] 03/07/2017 8:01 AM EDT Patient admitted to [facility] for HE and abdominal pain. MELD [...] ORDERABLES Final R esult Performing Organization Address [facility] Co de Phone Number EXTERNAL LAB * OTTR LAB RESULTS (MANUAL) (03/06/2017 8:02 PM EDT) External Estimated GFR 68.91 EXTERNAL LAB 03/06/2017 8:02 PM EDT Narrative EXTERNAL LAB - 03/06/2017 8:41 PM EDT Automated LAB Interface Historical Provider LAB BLOOD ORDERABLES Final R esult Performing Organization Address [facility] Co de Phone Number EXTERNAL LAB documented in this encounter Visit Diagnoses Not on filedocumented in this encounter Additional Health Concerns Infection Onset Date Last Indicated Resolved Time COVID-19 Rule-Out 11/08/2021 11/08/2021 11/08/2021 8:06 AM EDT documented as of this encounter Care Teams Corrections Identification Technician Relationship Specialty Start Date End Date Edgar Fournier MD [address] [place] [address] PCP - General 12/25/20 Enrique Griffith MD [address] [place] [address] Referring Physician Nephrology 01/08/21 documented as of this encounter
--- OUTSIDE RECORDS SUMMARY | 2025-07-07 13:34 | XMS_ITS | Encounter Summary ---
Author Organization [facility] Address [address] [place] [address] Care Team Providers Care On Site Property Manager Name Role Phone Edgar Fournier MD Primary Care Provider [phone] Enrique Griffith MD Unavailable [phone] Encounter Details Date Type Department Care Team (Late st Contact Info) Description 12/06/2016 Legacy OTTR Encounter Historical OTTR [address] [place] [address] Bridgett Márquez, RN [facility] [id number] [address] [place] [address] Social History Tobacco Use Types Packs/Day Years [...] diuretics. he understood. Will fax orders to [facility]. documented in this encounter Plan of Treatment Not on file documented as of this encounter Visit Diagnoses Not on filedocumented in this encounter Additional Health Concerns Infection Onset Date Last Indicated Resolved Time COVID-19 Rule-Out 11/08/2021 11/08/2021 11/08/2021 8:06 AM EDT documented as of this encounter Care Teams On Site Property Manager Relationship Specialty Start Date End Date Edgar Fournier MD [address] [place] [address] PCP - General 12/25/20 Enrique Griffith MD [address] [place] [address] Referring Physician Nephrology 01/08/21 documented as of this encounter
--- OUTSIDE RECORDS SUMMARY | 2025-07-07 13:34 | XMS_ITS | Encounter Summary ---
Author Organization [facility] Address [address] [place] [address] Care Team Providers Care Washing Machine Loader And Puller Name Role Phone Edgar Fournier MD Primary Care Provider Enrique Griffith MD Unavailable Encounter Details Date Type Department Care Team (Late st Contact Info) Description 12/20/2016 Legacy OTTR Encounter Historical OTTR [address] [place] [address] Shara Huff, FISHING VESSEL CAPTAIN, DNP [address] [facility] [address] [place] [address] Social History Tobacco Use Types Packs/Day Years [...] documented as of this encounter Care Teams Washing Machine Loader And Puller Relationship Specialty Start Date End Date Edgar Fournier MD [address] [place] [address] PCP - General 12/25/20 Enrique Griffith MD [address] [place] [address] Referring Physician Nephrology 01/08/21 documented as of this encounter
--- OUTSIDE RECORDS SUMMARY | 2025-07-07 13:34 | XMS_ITS | Encounter Summary ---
Author Organization [facility] Address [address] [place] [address] Care Team Providers Care Fish Pitcher Name Role Phone Edgar Fournier MD Primary Care Provider [phone] Enrique Griffith MD Unavailable [phone] Encounter Details Date Type Department Care Team (Late st Contact Info) Description 04/13/2017 Legacy OTTR Encounter Historical OTTR [address] [place] [address] Erika Truong, RN [facility] [id number] [address] [place] [address] Social History Tobacco Use Types Packs/Day Years [...] - 04/13/2017 1:15 PM EDT orders in [facility] [place] - pt has [...] documented as of this encounter Care Teams Fish Pitcher Relationship Specialty Start Date End Date Edgar Fournier MD [address] [place] [address] PCP - General 12/25/20 Enrique Griffith MD [address] [place] [address] Referring Physician Nephrology 01/08/21 documented as of this encounter
--- OUTSIDE RECORDS SUMMARY | 2025-07-07 13:34 | XMS_ITS | Encounter Summary ---
Author Organization [facility] Address [address] [place] [address] Care Team Providers Care Practice Physician Name Role Phone Edgar Fournier MD Primary Care Provider Enrique Griffith MD Unavailable [phone] Encounter Details Date Type Department Care Team (Late st Contact Info) Description 03/03/2017 Legacy OTTR Encounter Historical OTTR [address] [place] [address] Bridgett Márquez, RN HOSPITAL LIVER [id number] [address] [place] [address] Social History Tobacco Use Types Packs/Day Years [...] He adv [facility] with [facility] pain. Was [...] as of this encounter Care Teams Practice Physician Relationship Specialty Start Date End Date Edgar Fournier MD [address] [place] [address] PCP - General 12/25/20 Enrique Griffith MD [address] [place] [address] Referring Physician Nephrology 01/08/21 documented as of this encounter
--- OUTSIDE RECORDS SUMMARY | 2025-07-07 13:34 | XMS_ITS | Encounter Summary ---
Author Organization [facility] Address [address] [place] [address] Care Team Providers Care Gaming Cage Worker Name Role Phone Edgar Fournier MD Primary Care Provider Enrique Griffith MD Unavailable [phone] Encounter Details Date Type Department Care Team (Late st Contact Info) Description 03/21/2017 Legacy OTTR Encounter Historical OTTR [address] [place] [address] Roxi Vazquez [facility] [address] [place] [address] Social History Tobacco Use Types Packs/Day Years [...] documented as of this encounter Care Teams Gaming Cage Worker Relationship Specialty Start Date End Date Edgar Fournier MD [address] [place] [address] PCP - General 12/25/20 Enrique Griffith MD [address] [place] [address] Referring Physician Nephrology 01/08/21 documented as of this encounter
--- OUTSIDE RECORDS SUMMARY | 2025-07-07 13:35 | XMS_ITS | Encounter Summary ---
Author Organization [facility] Address [address] [place] [address] Care Team Providers Care Nurse Educator Name Role Phone Edgar Fournier MD Primary Care Provider Enrique Griffith MD Unavailable [phone] Encounter Details Date Type Department Care Team (Late st Contact Info) Description 10/09/2017 Legacy OTTR Encounter Historical OTTR [address] [place] [address] Bridgett Márquez, RN [facility] LIVER [id number] [address] [place] [address] Social History Tobacco Use Types Packs/Day Years [...] as of this encounter Care Teams Nurse Educator Relationship Specialty Start Date End Date Edgar Fournier MD [address] [place] [address] PCP - General 12/25/20 Enrique Griffith MD [address] [place] [address] Referring Physician Nephrology 01/08/21 documented as of this encounter
--- OUTSIDE RECORDS SUMMARY | 2025-07-07 13:35 | XMS_ITS | Encounter Summary ---
Author Organization [facility] Address [address] [place] [address] Care Team Providers Care Criminal Intelligence Analyst Name Role Phone Edgar Fournier MD Primary Care Provider [phone] Enrique Griffith MD Unavailable [phone] Encounter Details Date Type Department Care Team (Late st Contact Info) Description 08/23/2017 Legacy OTTR Encounter Historical OTTR [address] [place] [address] Bridgett Márquez, RN [facility] [id number] [address] [place] [address] Social History Tobacco Use Types Packs/Day Years [...] documented as of this encounter Care Teams Criminal Intelligence Analyst Relationship Specialty Start Date End Date Edgar Fournier MD [address] [place] [address] PCP - General 12/25/20 Enrique Griffith MD [address] [place] [address] Referring Physician Nephrology 01/08/21 documented as of this encounter
--- OUTSIDE RECORDS SUMMARY | 2025-07-07 13:35 | XMS_ITS | Encounter Summary ---
Author Organization [facility] Address [address] [place] [address] Care Team Providers Care Jig Grinder Set Up Operator Name Role Phone Edgar Fournier MD Primary Care Provider [phone] Enrique Griffith MD Unavailable [phone] Encounter Details Date Type Department Care Team (Late st Contact Info) Description 09/22/2017 [facility] OTTR Encounter Historical OTTR [address] [place] [address] Maren Friedman MD [address] [facility] [address] [place] [address] Social History Tobacco Use Types [...] documented as of this encounter Care Teams Jig Grinder Set Up Operator Relationship Specialty Start Date End Date Edgar Fournier MD [address] [place] [address] PCP - General 12/25/20 Enrique Griffith MD [address] [place] [address] Referring Physician Nephrology 01/08/21 documented as of this encounter
--- OUTSIDE RECORDS SUMMARY | 2025-07-07 13:35 | XMS_ITS | Encounter Summary ---
Author Organization [facility] Address [address] [place] [address] Care Team Providers Care Greenhouse Technician Name Role Phone Maile Valles RN Unavailable Unavail able Estephania Sharif PharmD Unavailable Christine Khari Caraballo MD Unavailable [phone] Source Comments This information has been disclosed [...] release of HIV test results or diagnoses. [id number] Health Encounter Details Date Type Department Care Team (Late st Contact Info) Description 06/03/2025 Chart Note [facility] Liver Transplant at [facility] [address] [facility] [address] [place] [address] Genevieve Palencia MA 06/03 Labs entered from [facility] Lab Social History Tobacco Use Types Packs/Day Years Used Date Smoking Tobacco: Never Smokeless Tobacco: Never Alcohol Use Standard Drinks/Week Comments Never 0 (1 standard drink = 0.6 oz pur e alcohol) [facility] Utilities Answer Date Recorded In the [...] any time in the [facility] were [facility] or living [...] 2:01 PM EDT 06/03 Labs entered from [facility] documented in this encounter Plan of [...] AM EDT) Cyclosporine, Blood 42 Whole Blood us Historical Provider LAB BLOOD ORDERABLES Yoselin l Result * Renal Function Panel w/o EGFR (06/03/2025 11:24 AM EDT) Glucose 165 BUN 63 CO2 17 13 - 22 mmol/L Creatinine 10.20 Potassium 6.7 Sodium 138 Chloride 103 Phosphorus 4.7 2.5 - 4.9 mg/dL Calcium 8.5 EGFR 7 mg/dL Albumin 4.4 3.5 - 5.0 g/dL Blood Narrative Resulting Agency Comment [facility] Lab Result [facility] Provider LAB BLOOD ORDERABLES Yoselin l [...] 4.3 10^3/mL Blood Narrative Resulting Agency Comment [facility] Provider LAB BLOOD ORDERABLES Yoselin l Result * Hepatic Function Panel (06/03/2025 11:24 AM EDT) Bilirubin, Direct 0.7 Bilirubin, Indirect 0.0 Alkaline Phosphatase 96 ALT 13 AST 18 Total Bilirubin 0.7 Total Protein 7.0 Plasma Narrative Resulting Agency Comment [facility] Lab Result [facility] Provider LAB BLOOD ORDERABLES Yoselin l Result documented in this encounter Visit Diagnoses Not on filedocumented in this encounter Additional Health Concerns Assessment Noted Time PHQ-9 Depression Total Score: 0 12/06/19 18 3:00 PM EDT documented as of this encounter Care Teams Greenhouse Technician Relationship Specialty Start Date End Date Maile Valles, RN Txp Post Coordinator Transplant Hepatology 11/07/17 Estephania Sharif, PharmD Pharmacist Pharmacist 11/11/19 Khari Lema MD [address] [facility] [address] [place] [address] Txp Truck Dispatcher Transplant Hepatology 05/29/25 documented as of this encounter
--- OUTSIDE RECORDS SUMMARY | 2025-07-07 13:35 | XMS_ITS | Encounter Summary ---
Author Organization [facility] Address [facility] [place] [address] Care Team Providers Care Clerical Order Filler Name Role Phone Maile Valles RN Unavailable Unavail able Estephania SharifD Unavailable Christine Khari Caraballo MD Unavailable [phone] Source Comments This information has been disclosed [...] release of HIV test results or diagnoses. [id number] Health Encounter Details Date Type Department Care Team (Late st Contact Info) Description 06/03/2025 Telephone [facility] Liver Transplant at [address] [place] [address] Genevieve Palencia MA Social History Tobacco Use Types Packs/Day Years Used Date Smoking Tobacco: Never Smokeless Tobacco: Never Alcohol Use Standard Drinks/Week Comments Never 0 (1 standard drink = 0.6 oz pur e alcohol) [facility] Utilities Answer Date Recorded In the past 12 months has [employer], gas, oil, or water company threatened to [...] living in a longterm (including now)? No 12/03/2024 Yearly Questionnaire Answer [...] - 06/03/2025 1:13 PM EDT Laurence from [facility] called to report 2 critical results from today's collection at 11:25 AM. Potassium: 6.7 (Specimen not hemolyzed) Creatinine: 10.20 Results are being faxed to [address] [place] [address]. Sending high priority to CC JANA persaud as well as through Teams. documented in this encounter Plan of Treatment Not on file documented as of this encounter Visit Diagnoses Not on filedocumented in this encounter Additional Health Concerns Assessment Noted Time PHQ-9 Depression Total Score: 0 12/06/19 18 3:00 PM EDT documented as of this encounter Care Teams Clerical Order Filler Relationship Specialty Start Date End Date Maile Valles RN Txp Post Coordinator Transplant Hepatology 11/07/17 Estephania Sharif, Wilbert Pharmacist Pharmacist 11/11/19 Khari Lema MD [address] [facility] [address] [place] [address] Txp Pharmacy Informatics Specialist Transplant Hepatology 05/29/25 documented as of this encounter
--- OUTSIDE RECORDS SUMMARY | 2025-07-07 13:35 | XMS_ITS | Encounter Summary ---
Author Organization [facility] Address [address] [place] [address] Care Team Providers Care Communication Instructor Name Role Phone Edgar Fournier MD Primary Care Provider [phone] Enrique Griffith MD Unavailable [phone] Encounter Details Date Type Department Care Team (Late st Contact Info) Description 08/21/2017 [facility] OTTR Encounter Historical OTTR [address] [place] [address] Jack Ansari Social History Tobacco Use Types [...] EXTERNAL LAB - 08/23/2017 10:33 AM EST [facility] us Historical Provider LAB BLOOD ORDERABLES Final R esult EXTERNAL LAB documented in this encounter Visit Diagnoses Not on filedocumented in this encounter Additional Health Concerns Infection Onset Date Last Indicated Resolved Time COVID-19 Rule-Out 11/08/2021 11/08/2021 11/08/2021 8:06 AM EDT documented as of this encounter Care Teams Communication Instructor Relationship Specialty Start Date End Date Edgar Fournier MD [address] [place] [address] PCP - General 12/25/20 Enrique Griffith MD [address] [place] [address] Referring Physician Nephrology 01/08/21 documented as of this encounter
--- OUTSIDE RECORDS SUMMARY | 2025-07-07 13:35 | XMS_ITS | Encounter Summary ---
Author Organization [facility] Address [address] [place] [address] Care Team Providers Care Coal Tower Operator Name Role Phone Edgar Fournier MD Primary Care Provider [phone] Enrique Griffith MD Unavailable [phone] Encounter Details Date Type Department Care Team (Late st Contact Info) Description 12/19/2016 [facility] OTTR Encounter Historical OTTR [address] [place] [address] Bridgett Márquez, RN [facility] LIVER [id number] [address] [place] [address] Social History Tobacco Use Types Packs/Day Years [...] ORDERABLES Final R esult Performing Organization Address [facility] de Phone Number EXTERNAL LAB * OTTR LAB RESULTS (MANUAL) (12/18/2016 12:13 AM EDT) External Estimated GFR 83.77 EXTERNAL LAB 12/18/2016 12:1 3 AM EDT Narrative EXTERNAL LAB - 12/18/2016 1:04 AM EDT Automated LAB Interface Historical Provider LAB BLOOD ORDERABLES Final R esult Performing Organization Address [facility] de Phone Number EXTERNAL LAB documented in this encounter Visit Diagnoses Not on filedocumented in this encounter Additional Health Concerns Infection Onset Date Last Indicated Resolved Time COVID-19 Rule-Out 11/08/2021 11/08/2021 11/08/2021 8:06 AM EDT documented as of this encounter Care Teams Coal Tower Operator Relationship Specialty Start Date End Date Edgar Fournier MD [address] [place] [address] PCP - General 12/25/20 Enrique Griffith MD [address] [place] [address] Referring Physician Nephrology 01/08/21 documented as of this encounter
--- OUTSIDE RECORDS SUMMARY | 2025-07-07 13:35 | XMS_ITS | Encounter Summary ---
Author Organization [facility] Address [address] [place] [address] Care Team Providers Care Art Handler Name Role Phone Edgar Fournier MD Primary Care Provider Enrique Griffith MD Unavailable Encounter Details Date Type Department Care Team (Late st Contact Info) Description 09/07/2017 [facility] OTTR Encounter Historical OTTR [address] [place] [address] Sandrita Ferguson, SENIOR UNDERWRITING ASSISTANT [address] [facility] [address] [place] [address] Social History Tobacco Use Types Packs/Day Years [...] his at home. We will ask our geriatric social worker to reassess the patient at [...] documented as of this encounter Care Teams Art Handler Relationship Specialty Start Date End Date Edgar Fournier MD [address] [place] [address] PCP - General 12/25/20 Enrique Griffith MD [address] [place] [phone] Referring Physician Nephrology 01/08/21 documented as of this encounter
--- OUTSIDE RECORDS SUMMARY | 2025-07-07 13:35 | XMS_ITS | Encounter Summary ---
Author Organization [facility] Address [address] [place] [address] Care Team Providers Care Medicinal Plant Picker Name Role Phone Edgar Fournier MD Primary Care Provider [phone] Enrique Griffith MD Unavailable [phone] Encounter Details Date Type Department Care Team (Late st Contact Info) Description 08/23/2017 [facility] OTTR Encounter Historical OTTR [address] [place] [address] Kathya Hassan, PA [address] [facility] [address] [place] [address] Social History Tobacco Use Types Packs/Day Years [...] documented as of this encounter Care Teams Medicinal Plant Picker Relationship Specialty Start Date End Date Edgar Fournier MD [address] [place] [address] PCP - General 12/25/20 Enrique Griffith MD [address] [place] [address] Referring Physician Nephrology 01/08/21 documented as of this encounter
--- OUTSIDE RECORDS SUMMARY | 2025-07-07 13:35 | XMS_ITS | Encounter Summary ---
Author Organization [facility] Address [address] [place] [address] Care Team Providers Care Roll Cutting Operator Name Role Phone Edgar Fournier MD Primary Care Provider [phone] Enrique Griffith MD Unavailable [phone] Encounter Details Date Type Department Care Team (Late st Contact Info) Description 08/23/2017 [facility] OTTR Encounter Historical OTTR [address] [place] [address] Bridgett Márquez, RN [facility] [id number] [address] [place] [address] Social History Tobacco Use Types Packs/Day Years [...] as of this encounter Care Teams Roll Cutting Operator Relationship Specialty Start Date End Date Edgar Fournier MD [address] [place] [address] PCP - General 12/25/20 Enrique Griffith MD [address] [place] [address] Referring Physician Nephrology 01/08/21 documented as of this encounter
--- OUTSIDE RECORDS SUMMARY | 2025-07-07 13:35 | XMS_ITS | Encounter Summary ---
Author Organization [facility] Address [address] [place] [address] Care Team Providers Care Director Of Player Personnel Name Role Phone Edgar Fournier MD Primary Care Provider Enrique Griffith MD Unavailable [phone] Encounter Details Date Type Department Care Team (Late st Contact Info) Description 09/13/2017 [facility] OTTR Encounter Historical OTTR [address] [place] [address] Bridgett Márquez RN [facility] LIVER [id number] [address] [place] [address] Social History Tobacco Use Types Packs/Day Years [...] of this encounter Care Teams Director Of Player Personnel Relationship Specialty Start Date End Date Edgar Fournier MD [address] [place] [address] PCP - General 12/25/20 Enrique Griffith MD [address] [place] [address] Referring Physician Nephrology 01/08/21 documented as of this encounter
--- OUTSIDE RECORDS SUMMARY | 2025-07-07 13:35 | XMS_ITS | Encounter Summary ---
Author Organization [facility] Address [address] [place] [address] Care Team Providers Care Tip Tester Name Role Phone Edgar Fournier MD Primary Care Provider [phone] Enrique Griffith MD Unavailable [phone] Encounter Details Date Type Department Care Team (Late st Contact Info) Description 10/02/2017 [facility] OTTR Committee Historical OTTR [address] [place] [address] Raquel Toribio, [facility] [address] Social History Tobacco Use Types Packs/Day Years [...] is listed for liver transplant here at [facility], came in for follow-up. SAL Cirrhosis [...] recent Doppler in December - Will ask [facility] to please arrange for colonoscopy and video [...] as of this encounter Care Teams Tip Tester Relationship Specialty Start Date End Date Edgar Fournier MD [address] [place] [address] PCP - General 12/25/20 Enrique Griffith MD [address] [place] [address] Referring Physician Nephrology 01/08/21 documented as of this encounter
--- OUTSIDE RECORDS SUMMARY | 2025-07-07 13:35 | XMS_ITS | Encounter Summary ---
Author Organization [facility] Address [address] [place] [address] Care Team Providers Care Oil Well Fishing Tool Operator Name Role Phone Edgar Fournier MD Primary Care Provider [phone] Enrique Griffith MD Unavailable [phone] Encounter Details Date Type Department Care Team (Late st Contact Info) Description 08/23/2017 [facility] OTTR Encounter Historical OTTR [address] [place] [address] Bridgett Márquez, RN [facility]OSP[facility] LIVER [id number] [address] [place] [address] Social History Tobacco Use Types Packs/Day Years [...] EST Rec'd ph call from Rom at [facility]. She is working on dual listing for [...] as of this encounter Care Teams Oil Well Fishing Tool Operator Relationship Specialty Start Date End Date Edgar Fournier MD [address] [place] [address] PCP - General 12/25/20 Enrique Griffith MD [address] [place] [phone] Referring Physician Nephrology 01/08/21 documented as of this encounter
--- OUTSIDE RECORDS SUMMARY | 2025-07-07 13:35 | XMS_ITS | Encounter Summary ---
Author Organization [facility] Address [address] [place] [address] Care Team Providers Care Nematology Teacher Name Role Phone Jazmín Olmedo RN Unavailable Unavail able Estephania SharifD Unavailable Christine Khari Caraballo MD Unavailable [phone] Source Comments This information has been disclosed [...] release of HIV test results or diagnoses. [id number] Reason for Visit * Reason Comments Consult Results Encounter Details Date Type Department Care Team (Late st Contact Info) Description 06/04/2025 Telephone [facility] Liver Transplant at [address] [place] [address] Shanthi Hall MA Consult; Results Social History Tobacco Use Types Packs/Day Years Used Date Smoking Tobacco: Never Smokeless Tobacco: Never Alcohol Use Standard Drinks/Week Comments Never 0 (1 standard drink = 0.6 oz pur e alcohol) [facility] Utilities Answer Date Recorded In the past 12 months has th e electric, gas, oil, or water [employer] threatened to shut off services in your [...] any time in the past 12 m [facility], were you homeless or living [...] review labs and recent encounter with his house rn. Patient wanted to make sure Liver Txp [...] EDT Dr. Kay states he is Pt's house rn and he has questions regarding Pt's CSA [...] Dr. Kay requests return call from CC JANA Gr tomorrow at her convenience to discuss Pt. Dr. Kay provided his cell phone [phone]. documented in this encounter Plan of Treatment Not on file documented as of this encounter Visit Diagnoses Not on filedocumented in this encounter Additional Health Concerns Assessment Noted Time PHQ-9 Depression Total Score: 0 12/06/19 18 3:00 PM EDT documented as of this encounter Care Teams Nematology Teacher Relationship Specialty Start Date End Date Jazmín Olmedo, JANA Txp Post Coordinator Transplant Hepatology 11/07/17 Estephania Sharif, DarrianD Pharmacist Pharmacist 11/11/19 Khari Lema MD [address] [place] [address] Txp Desktop Manager Transplant Hepatology 05/29/25 documented as of this encounter
--- OUTSIDE RECORDS SUMMARY | 2025-07-07 13:35 | XMS_ITS | Encounter Summary ---
Author Organization [facility] Address [address] [place] [address] Care Team Providers Care Assembly Line Upholsterer Name Role Phone Edgar Fournier MD Primary Care Provider Enrique Griffith MD Unavailable [phone] Encounter Details Date Type Department Care Team (Late st Contact Info) Description 09/07/2017 [facility] OTTR Encounter Historical OTTR [address] [place] [address] Bridgett Márquez, RN [facility] LIVER [id number] [address] [place] [address] Social History Tobacco Use Types Packs/Day Years [...] 09/08/2017 3:23 AM EST Automated LAB Interface [facility] Provider LAB BLOOD ORDERABLES Final R esult Performing Organization Address [facility] Co de Phone Number EXTERNAL LAB * OTTR LAB RESULTS (MANUAL) (09/07/2017 4:40 AM EST) External Estimated GFR 59.49 EXTERNAL LAB 09/07/2017 4:40 AM EST Narrative EXTERNAL LAB - 09/07/2017 5:41 AM EST Automated LAB Interface Historical Provider LAB BLOOD ORDERABLES Final R esult Performing Organization Address [facility] Co de Phone Number EXTERNAL LAB documented in this encounter Visit Diagnoses Not on filedocumented in this encounter Additional Health Concerns Infection Onset Date Last Indicated Resolved Time COVID-19 Rule-Out 11/08/2021 11/08/2021 11/08/2021 8:06 AM EDT documented as of this encounter Care Teams Assembly Line Upholsterer Relationship Specialty Start Date End Date Egdar Fournier MD [address] [place] [address] PCP - General 12/25/20 Enrique Griffith MD [address] [place] [address] Referring Physician Nephrology 01/08/21 documented as of this encounter
--- OUTSIDE RECORDS SUMMARY | 2025-07-07 13:35 | XMS_ITS | Encounter Summary ---
Author Organization [facility] Address [address] [place] [address] Care Team Providers Care Handkerchief Maker Name Role Phone Edgar Fournier MD Primary Care Provider [phone] Enrique Griffith MD Unavailable [phone] Encounter Details Date Type Department Care Team (Late st Contact Info) Description 08/29/2017 [facility] OTTR Encounter Historical OTTR [address] [place] [address] Roxi Vazquez [facility] [address] [place] [address] Social History Tobacco Use Types Packs/Day Years [...] documented as of this encounter Care Teams Handkerchief Maker Relationship Specialty Start Date End Date Edgar Fournier MD [address] [place] [address] PCP - General 12/25/20 Enrique Griffith MD [address] [place] [address] Referring Physician Nephrology 01/08/21 documented as of this encounter
--- OUTSIDE RECORDS SUMMARY | 2025-07-07 13:35 | XMS_ITS | Encounter Summary ---
Author Organization [facility] Address [address] [place] [address] Care Team Providers Care Outside Sales Advertising Executive Name Role Phone Edgar Fournier MD Primary Care Provider [phone] Enrique Griffith MD Unavailable [phone] Encounter Details Date Type Department Care Team (Late st Contact Info) Description 08/28/2019 Legacy MANDO Encounter Historical OTTR [address] [place] [address] Tona Chaudhari [address] Social History Tobacco Use Types Packs/Day Years [...] scheduled for 09/30/19. * Progress Notes - [place], Wire Cutter - 08/28/2019 2:51 PM EST Rec'd fwd'd VM, from [facility], requesting scheduling for vein mapping forpt., pt. has dialysis MWF, requested notification at: [phone]. Fwd'd VM to surgical team, RWG/HEW. documented in this encounter Plan of Treatment Not on file documented as of this encounter Visit Diagnoses Not on filedocumented in this encounter Additional Health Concerns Infection Onset Date Last Indicated Resolved Time COVID-19 Rule-Out 11/08/2021 11/08/2021 11/08/2021 8:06 AM EDT documented as of this encounter Care Teams Outside Sales Advertising Executive Relationship Specialty Start Date End Date Edgar Fournier MD [address] [place] [address] PCP - General 12/25/20 Enrique Griffith MD [address] [place] [address] Referring Physician Nephrology 01/08/21 documented as of this encounter
--- OUTSIDE RECORDS SUMMARY | 2025-07-07 13:35 | XMS_ITS | Encounter Summary ---
Author Organization [facility] Address [address] [place] [address] Care Team Providers Care City Tax Auditor Name Role Phone Edgar Fournier MD Primary Care Provider Enrique Griffith MD Unavailable [phone] Encounter Details Date Type Department Care Team (Late st Contact Info) Description 08/23/2017 [facility] OTTR Encounter Historical OTTR [address] [place] [address] Bridgett Márquez, RN [facility] [id number] [address] [place] [address] Social History Tobacco Use Types Packs/Day Years [...] as of this encounter Care Teams City Tax Auditor Relationship Specialty Start Date End Date Edgar Fournier MD [address] [place] [address] PCP - General 12/25/20 Enrique Griffith MD [address] [place] [address] Referring Physician Nephrology 01/08/21 documented as of this encounter
--- OUTSIDE RECORDS SUMMARY | 2025-07-07 13:35 | XMS_ITS | Encounter Summary ---
Author Organization [facility] Address [address] [place] [address] Care Team Providers Care Wrapper Caser Name Role Phone Edgar Fournier MD Primary Care Provider [phone] Enrique Griffith MD Unavailable [phone] Encounter Details Date Type Department Care Team (Late st Contact Info) Description 09/20/2017 [facility] OTTR Encounter Historical OTTR [address] [place] [address] Bridgett Márquez, RN [facility] [id number] [address] [place] [address] Social History Tobacco Use Types Packs/Day Years [...] documented as of this encounter Care Teams Wrapper Caser Relationship Specialty Start Date End Date Edgar Fournier MD [address] [place] [address] PCP - General 12/25/20 Enrique Griffith MD [address] [place] [address] Referring Physician Nephrology 01/08/21 documented as of this encounter
--- OUTSIDE RECORDS SUMMARY | 2025-07-07 13:35 | XMS_ITS | Encounter Summary ---
Author Organization [facility] Address [address] [place] [id number] Care Team Providers Care Sales Agent Financial Report Service Name Role Phone Maile Valles RN Unavailable Unavail able Estephania Sharif PharmD Unavailable Christine miguelilaKhari Cage MD Unavailable [phone] Source Comments This information has been disclosed [...] release of HIV test results or diagnoses. [id number] Reason for Referral * Diagnostic Imaging (Routine) - Authorized Specialty Diagnoses / Procedures Referred By Contac t Referred To Contact Diagnoses Essential (primary) hypertension Type 2 diabetes 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, with long-term current use of insulin ([facility]) ESRD (end stage renal disease) on dialysis ([facility]) Pre-transplant evaluation for kidney transplant High risk surgery, pre-operative cardiovascular examination Procedures Cath Case Request: Left and Right Heart Cath SD R & L HRT CATH WINJX HRT ART& L VENTR IMG [facility] Cardiology at [facility] [address] [facility] [address] [place] [address] Phone: tel: fax: Cuong Dobson MD [address] [facility] [place] [address] Phone: tel: fax: Referral ID Status Reason Start Date Expiration Date V isits Requested Visits Authorized [id number] Authorized 06/05/2025 12/02/2025 1 1 Encounter Details Date Type Department Care Team (Late st Contact Info) Description 06/05/2025 Telephone [facility] Cardiology at [facility] Office [address] [facility] [address] [address] [place] [address] Betty Fox, JANA Social History Tobacco Use Types Packs/Day Years Used Date Smoking Tobacco: Never Smokeless Tobacco: Never Alcohol Use Standard Drinks/Week Comments Never 0 (1 standard drink = 0.6 oz pur e alcohol) [facility] Utilities Answer Date Recorded In the [...] any time in the past 12 m [facility], were you homeless or [...] Telephone Encounter - Betty Fox RN - 06/05/2025 12:02 PM EDT Lianet received the duplex report that patient completed at [facility]. She said ok to proceed with LHC/C for pre-op renal transplant. Notified patient. Went through procedure and instructions with patient. He verbalized understandingand denies further questions at this time. He requested labs to be sent to [facility]. Patient noted his Potassium was high on previous lab and said his nephrology team is aware. He was not dialyzed prior to blood draw. Labs faxed as requested. Fax number provided by [facility] calender roll operator [phone]. documented in this encounter Plan of Treatment Scheduled Orders Name Type Priority Associated Diagnoses Orde r Schedule CBC Lab Routine Essential (primary) hypertension Type 2 diabetes 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, with long-term current use of insulin ([facility]) ESRD (end stage renal disease) on dialysis ([facility]) Pre-transplant evaluation for kidney transplant High risk surgery, pre-operative cardiovascular examination 1 Occurrences starting 06/05/2025 until 12/18/2025 Renal Function Panel w/EGFR Lab Routine Essential (primary) hypertension Type 2 diabetes 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, with long-term current use of insulin ([facility]) ESRD (end stage renal disease) on dialysis ([facility]) Pre-transplant evaluation for kidney transplant High risk surgery, pre-operative cardiovascular examination 1 Occurrences starting 06/05/2025 until 12/18/2025 Protime-INR Lab Routine Essential (primary) hypertension Type 2 diabetes 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, with long-term current use of insulin ([facility]) ESRD (end stage renal disease) on dialysis ([facility]) Pre-transplant evaluation for kidney transplant High risk surgery, pre-operative cardiovascular examination 1 Occurrences starting 06/05/2025 until 12/18/2025 documented as of this encounter Visit Diagnoses Diagnosis Essential (primary) hypertension- Primary Unspecified essential hypertension Type 2 diabetes 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, with long-term current use of insulin ([facility]) ESRD (end stage renal disease) on dialysis ([facility]) End stage renal disease Pre-transplant evaluation for kidney transplant High risk surgery, pre-operative cardiovascular examination Pre-operative cardiovascular examination documented in this encounter Additional Health Concerns Assessment Noted Time PHQ-9 Depression Total Score: 0 12/06/19 18 3:00 PM EDT documented as of this encounter Care Teams Sales Agent Financial Report Service Relationship Specialty Start Date End Date Valles, Maile Abbie, RN Txp Post Coordinator Transplant Hepatology 11/07/17 Estephania Sharif, DarrianD Pharmacist Pharmacist 11/11/19 Khari Lema MD [address] [facility] [address] [facility] [place] [address] Txp Rotary Kiln Operator Transplant Hepatology 05/29/25 documented as of this encounter
--- OUTSIDE RECORDS SUMMARY | 2025-07-07 13:36 | XMS_ITS ---
Author Organization [facility] Address [address] [place] [address] Care Team Providers Care Deicer Repairer Pneumatic Name Role Phone Maile Valles RN Unavailable Unavail able Estephania Sharif PharmD Unavailable Christine Edgar Tolentino MD Primary Care Provider Khari Lema MD Unavailable [phone] Stan Moise RN Unavailable Unavail able Dialysis Access Sites Type Status Location Placement [...] long-term current use of [place]D (end stage renal disease) on dialysis [place] Pre-transplant evaluation for kidney transplant High risk surgery, pre-operative cardiovascular examination POCT ACTIVATED CLOTTING TIME - LR Routine 06/12/2025 5:51 PM EDT BASIC METABOLIC PANEL STAT 06/12/2025 1:06 PM EDT CBC STAT 06/12/2025 1:06 PM EDT ECG 12-LEAD (MUSE) STAT 06/12/2025 12 :25 PM EDT PROTIME-INR STAT 06/12/2025 12:08 PM EDT CARDIAC CATH DOCUMENTS SCAN 06/12/2025 5:58 AM EDT CYCLOSPORINE LEVEL Routine 06/03/2025 11 :24 AM EDT RENAL FUNCTION PANEL W/O EGFR Routine 06/03/2025 11:24 AM EDT CBC AND DIFFERENTIAL Routine 06/03/2025 11:24 AM EDT HEPATIC FUNCTION PANEL Routine 11:24 AM EDT ECHO LIMITED W/ DOPPLER AND STRAIN Routine 04/21/2025 11:05 AM EDT Essential (primary) hypertension Type 2 diabetes 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, with long-term current use of insulin [place] ESRD (end stage renal disease) on dialysis [place] Pre-transplant evaluation for kidney transplant HIV 1+2 ANTIBODY/ANTIGEN WITH REFLEX Routine 02/04/2025 12:48 PM EDT Essential (primary) hypertension Type 2 diabetes 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, with long-term current use of insulin [place] ESRD (end stage renal disease) on dialysis [place] Pre-transplant evaluation for kidney transplant Routine history and physical examination of adult HEMOGLOBIN A1C Routine 02/04/2025 12:48 PM EDT Essential (primary) hypertension Type 2 diabetes 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, with long-term current use of insulin [place] ESRD (end stage renal disease) on dialysis [place] Pre-transplant evaluation for kidney transplant Routine history and physical examination of adult HEPATITIS C ANTIBODY Routine 02/04/2025 12:48 PM EDT Essential (primary) hypertension Type 2 diabetes 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, with long-term current use of insulin [place] ESRD (end stage renal disease) on dialysis [place] Pre-transplant evaluation for kidney transplant Routine history and physical examination of adult ENDOSCOPY, COLON Routine 03/23/2022 9:13 AM EDT OCCULT BLOOD Routine 06/15/2020 9:10 AM EST from Last 3 Months or Most Recently Relevant to Health Maintenance Allergies Active Allergy Reactions Criticality Noted Date Comments Calcitriol Other (See Comments),Nausea And Vomiting 09/20/2023 Codeine Sulfate 01/12/2019 Hyper Tacrolimus Other (See Comments) High 03/02/2021 Anxious feeling and muscle jerking. TOLERATED ENVARSUS BETTER THAN PROGRAF. Medications NIFEdipine (PROCARDIA-XL) 90 MG (OSM) 24 hr tablet Take 1 tablet (90 mg total) by mouth 2 times a day. 04/23/20 Active doxazosin (CARDURA) 8 MG tablet Take 1 tablet (8 mg total) by mouth at bedtime. 05/12/20 Active carBAMazepine (TEGRETOL) 200 mg tablet Take 1 tablet (200 mg total) by mouth 2 times a day. Active folic acid (FOLVITE) 1 MG tablet Take 1 tablet (1 mg total) by mouth daily. 30 tablet 11/03/19 Active montelukast (SINGULAIR) 10 mg tablet Take 1 tablet (10 mg total) by mouth daily as needed. pm 03/08/20 Active testosterone cypionate (DEPOTESTOTERONE CYPIONATE) 200 mg/mL injection Inject into the muscle every 28 days. Active pantoprazole (PROTONIX) 40 MG tablet Take 1 tablet (40 mg total) by mouth 2 times a day. 60 tablet 5 2 3:28 PM EDT 05/06/20 Active ergocalciferol (ERGOCALCIFEROL) 1,250 mcg (50,000 unit) [...] day. 180 tablet 3 08/10/20 24 Active proMETHazine-dext romethorphan (PROMETHAZINE-DM) 6.25-15 mg/5 mL syrup if needed for Cough. 08/12/20 24 Active ipratropium (ATROVENT) 42 mcg (0.06 %) nasal spray if needed for Rhinitis. 08/27/19 25 Active entecavir (BARACLUDE) 0.5 MG tablet Take [...] 12/09/19 25 Active cycloSPORINE modified 25 MG capsuleIndication s:Prevention of Liver Transplant Rejection Take 4 capsules [...] by mouth. Twice daily 06/04/20 25 Active ticagrelor (BRILINTA) 90 mg Tab tablet Take 1 tablet (90 mg total) by mouth 2 times a day. 180 tablet 5 5 9:40 AM EDT 06/13/20 25 Active aspirin 81 MG EC tablet Take 1 tablet (81 mg total) by mouth daily with breakfast. 90 tablet 5 5 9:40 AM EDT 06/13/20 25 Active aspirin 81 MG EC tablet Take 1 tablet (81 mg total) by mouth daily. 30 tablet 06/13/20 25 Active aspirin 81 MG chewable tablet Chew 1 tablet (81 mg total) by mouth daily with breakfast. 30 tablet 5 10/18/19 18 025 Disconti nued(Sto p Taking at Discharg e) metoprolol succinate (TOPROL-XL) 25 MG 24 hr tablet Take 1 tablet (25 mg total) by mouth daily. Am or pm 025 Disconti nued(Sto p Taking at Discharg e) Active Problems Patient Care Coordination No te [...] non-formulary phosphate binder (xphozah) - Continue ergocalciferol 53690 TTS Primary hypertension 12/03/2024 Assessment & Plan [...] 10:41 AM EST): - prior cx's with [facility], recently [...] for prophylaxis/suppression. Hep B viral load at [facility] was detectable, but to low to [...] home. He was getting once daily at [facility]. Will start lorazepam instead since it [...] in dialysis. PLAN: Continue epoetin 6000 units Mon/Wed/Mon Transfuse 1 unit PRBC tomorrow with dialysis Assessment & Plan (06/23/2020 10:30 AM EST): Blood was unable to be obtained yesterday in time for infusion with dialysis. He is a difficult match. Will transfuse with dialysis on Monday. Asymptomatic. PLAN: Continue epoetin 6000 units Mon/Wed/Fri Transfuse 1 unit PRBC tomorrow with dialysis Assessment & Plan (06/22/2020 11:26 AM EST): Hemoglobin is 6.7 today. Will transfuse today, if blood is available in time for dialysis. PLAN: Continue epoetin 6000 units Mon/Wed/Fri Prepare 1 unit PRBC Assessment & Plan [...] PLAN: Continue dialysis Immunosuppression for liver transplant 8 Assessment & Plan (06/22/2020 11:28 AM EST): The patient is on cyclosporine. Levels were below goal while at [facility]; dose increased. PLAN: Continue cyclosporine 75 [...] hepatitis B positive). 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 Transplanted [...] apnea Immunizations Immunization Administration Dates Next Due COVID-19, mRNA, Moderna monovalent, age 12+ 02/12/2021,08/17/2021 Social History Tobacco Use Types Packs/Day Years Used Date Smoking Tobacco: Never Smokeless Tobacco: Never Tobacco Cessation:Counseling Given: Not Answered Alcohol Use Standard Drinks/Week Comments Never 0 (1 standard drink = 0.6 oz pur e alcohol) [facility] Utilities Answer Date Recorded In the past 12 months has th e [place], gas, oil, or water company threatened to [...] Mass Index 41.56 06/12/2025 12:01 PM EDT Results * EKG - scan (06/17/2025 4:36 PM EST) us Scanning [facility] SCAN DOCS - NO RESULTS Final Res ult * (ABNORMAL) POC Glucose Monitoring Device (06/13/2025 8:20 AM EDT) [facility] POC Glucose Monitoring Device 149(H) 70 - 100 mg/dL 06/13/2025 8:22 AM EDT [facility] Blood 06/13/2025 8:20 AM EDT 06/13/2025 8:21 AM EDT us Cuong Dobson MD POINT OF CARE TEST ORDERABLES F inal Result [facility] [address] [place] [address], [facility] * (ABNORMAL) Renal Function Panel w/EGFR (06/13/2025 3:09 AM EDT) Sodium 132(L) 133 - 146 mmol/L 06/13/2025 3:48 AM EDT [facility] Potassium 5.0 3.5 - 5.3 mmol/L 06/13/2025 3:48 AM EDT [facility] Chloride 98 98 - 110 mmol/L 06/13/2025 3:48 AM EDT [facility] CO2 22 21 - 33 mmol/L 06/13/2025 3:48 AM EDT [facility] Comment:High lactate dehydro genase concentrations in patient samples may cause falsely increased bicarbonate results. If markedly elevated LDH is observed or suspected, please assess results in conjunction with patient`s clinical presentation. In cases of discrepant results, consider evaluating CO2 in with a blood gas order. Anion Gap 12 3 - 16 mmol/L 06/13/2025 3:48 AM EDT [facility] BUN 49(H) 7 - 25 mg/dL 06/13/2025 3:48 AM EDT [facility] Creatinine 8.83(H) 0.60 - 1.30 mg/dL 06/13/2025 3:48 AM EDT [facility] Glucose 171(H) 70 - 100 mg/dL 06/13/2025 3:48 AM EDT [facility] Calcium 8.5(L) 8.6 - 10.3 mg/dL 06/13/2025 3:48 AM EDT [facility] Phosphorus 5.1(H) 2.1 - 4.7 mg/dL 06/13/2025 3:48 AM EDT [facility] Albumin 3.9 3.5 - 5.7 g/dL 06/13/2025 3:48 AM EDT [facility] Osmolality, Calculated 291 278 - 305 mOsm/kg 06/13/2025 3:48 AM EDT [facility] EGFR 7 06/13/2025 3:48 AM EDT [facility] Comment:As of 2021, the estimated GFR [...] EDT 06/13/2025 3:22 AM EDT us Charlie Celaya MD LAB BLOOD ORDERABLES Final Resul t [facility] [address] * (ABNORMAL) CBC (06/13/2025 3:09 AM EDT) Only the most recent of2 resultswithin the time period is included. WBC 5.3 3.8 - 10.8 10E3/uL 06/13/2025 3:44 AM EDT [facility] RBC 4.22 4.20 - 5.80 10E6/uL 06/13/2025 3:44 AM EDT [facility] Hemoglobin 13.4 13.2 - 17.1 g/dL 06/13/2025 3:44 AM EDT [facility] Hematocrit 40.8 38.5 - 50.0 % 06/13/2025 3:44 AM EDT [facility] MCV 96.7 80.0 - 100.0 fL 06/13/2025 3:44 AM EDT [facility] MCH 31.7 27.0 - 33.0 pg 06/13/2025 3:44 AM EDT [facility] MCHC 32.8 32.0 - 36.0 g/dL 06/13/2025 3:44 AM EDT [facility] RDW 18.2(H) 11.0 - 15.0 % 06/13/2025 3:44 AM EDT [facility] Platelets 226 140 - 400 10E3/uL 06/13/2025 3:44 AM EDT [facility] MPV 7.7 7.5 - 11.5 fL 06/13/2025 3:44 AM EDT [facility] Whole Blood 06/13/2025 3:09 AM EDT 06/13/2025 3:22 AM EDT us Said Yomi PEREZ LAB BLOOD ORDERABLES Final Resul t [facility] [address] [place] [address], [facility] * (ABNORMAL) Lipid Profile (06/13/2025 3:09 AM EDT) Non-HDL Cholesterol, Calculated 140(H) 0 - 129 mg/dL 06/13/2025 3:48 AM EDT [facility] Comment: Desirable: < 130 mg/dL Above Desirable: 130-159 mg/dL Borderline High: 160-189 mg/dL High: 190-219 mg/dL Very High: > 219 mg/dL Cholesterol, Total 178 0 - 200 mg/dL 06/13/2025 3:48 AM EDT [facility] Triglycerides 308(H) 10 - 149 mg/dL 06/13/2025 3:48 AM EDT [facility] HDL 38(L) 60 - 92 mg/dL 06/13/2025 3:48 AM EDT [facility] Comment: LIPID PROFILE INTERPRETATION CHOLESTEROL,TOTAL(mg/dL) DESIRABLE: [...] LDL Cholesterol 78 mg/dL 3:48 AM EDT [facility] Plasma 06/13/2025 3:09 AM EDT 06/13/2025 3:22 AM EDT Narrative [facility] - 06/13/2025 3:48 AM EDT Can be obtained within 6 months prior to admission or during current admission LDL cholesterol calculated using the Friedewald equation. Said Yomi PEREZ LAB BLOOD ORDERABLES Final Resul t Performing Organization Address City/[facility] Co de Phone Number [facility] [address] [place] [address] * ECG 12 lead (MUSE) (06/12/2025 6:08 PM EDT) Only the most recent of2 resultswithin the time period is included. 06/12/2025 6:08 PM EDT Narrative M[facility] - 06/14/2025 12:09 AM EDT Ventricular Rate: 99 BPM Atrial Rate: 99 BPM P-R Interval: 254 ms QRS Duration: 100 ms QT: 356 ms QTc: 456 ms P Stevens: 47 degrees R Stevens: 59 degrees T Stevens: -9 degrees Diagnosis Line: SINUS RHYTHM WITH 1ST DEGREE A-V BLOCK ^ OTHERWISE NORMAL ECG ^ ^ Confirmed by MD KRISHNA, SAADIA ([id number]) on 06/14/2025 12:09:14 AM us Charlie Celaya MD ECG ORDERABLES Final Result Performing Organization Address City/[facility] Co de Phone Number MUSE * LEFT AND RIGHT HEART CATHETERIZATION (06/12/2025 5:56 PM EDT) 06/12/2025 4:38 PM EDT Narrative [facility] - 06/15/2025 12:28 PM EST *[facility]* Cardiac Bar Gauger And Lubricator Tender [address] [place] [address] CATHETERIZATION LAB STUDY Patient: Aiden Stauffer Age: 50 Study 06/12/2025 W Date: Patient [id number] Gender: M Study 04:38:52 PM ID: Time: [...] 90mg BID Loaded with 180 mg in lab aide Continue high intensity statin Cardiac Rehab Radial Hemostasis- Admit to CVICU/TIMBER FELLER/6S service Dc in am if stable INDICATIONS: [...] manner. 3. Right radial artery access. A [id number] Glidesheath - Slender - .021 sheath was [...] stenosis in the mid LAD. 1. A 0.950j170mc Pressure Wire X wire was placed. 2. Balloon angioplasty was performed. A 3mm (D) x 15mm (L), Balloon, NC Euphora balloon was employed. The balloon was placed across the lesion and given two inflations with a maximum inflation pressure of 15atm. 3. A .[id number] Runthrough NS extra floppy wire was placed. [...] + !LV pressure s/d, ed !119/10, 18, dP/ur=2582px Hg/s! + + + !Aortic pressure s/d [...] and electronically signed by Cuong Dobson MD [id number] Procedure Note Cuong Dobson MD - 06/15/2025 *[facility]* Cardiac Bar Gauger And Lubricator Tender [address] [place], [place] [address] CATHETERIZATION LAB STUDY Patient: Aiden Stauffer Age: 50 Study 06/12/2025 W Date: Patient [id number] Gender: M Study 04:38:52PM ID: Time: : 1975 HT/WT: 175.3cm / 127.6kg Performing Physician: Cuong Dobson MD Ordering Physician: Lianet Maeyn Fellow: MD Yomi Ramirez Said Procedures performed: [...] 90mg BID Loaded with 180 mg in lab aide Continue high intensity statin Cardiac Rehab Radial Hemostasis- Admit to CVICU/TIMBER FELLER/6S service Dc in am if stable INDICATIONS: [...] manner. 3. Right radial artery access. A [id number] Glidesheath - Slender - .021 sheath was [...] stenosis in the mid LAD. 1. A 0.613n819qm Pressure Wire X wire was placed. 2. Balloon angioplasty was performed. A 3mm (D) x 15mm (L), Balloon, NC Euphora balloon was employed. The balloon was placed across thelesion and given two inflations with a maximum inflation pressure of 15atm. 3. A .[id number] Runthrough NS extra floppy wire was placed. 4. Stent placement was performed. A 3.5mm (D) x 32mm (L), Stent, Synergy MEGATRON stent was used. The stent was advanced across the lesion and deployed with a single inflation and a maximum pressure of 15atm. STUDY COMPLETION: The patient tolerated the procedure well. There wereno complications. Contrast: Omnipaque 350 150ml (total dose). [id number] 50ml (wasted). Radiation: Fluoroscopy time: 16.4min. Total [...] + !LV pressure s/d, ed !119/10, 18, dP/bc=8061rr Hg/s! + + + !Aortic pressure s/d [...] and electronically signed by Cuong Dobson MD [id number]:22 Lianet Mayen ENGINEERING PROJECT MANAGER [id number] Final Result [facility] * POC Activated Clotting Time Low Range (06/12/2025 5:51 PM EDT) [facility] Signature Activated Clotting Time, Low Range POC (4) [...] 5:51 PM EDT 06/13/2025 5:47 AM EDT us Cuong Dobson MD POINT OF CARE TEST ORDERABLES F inal Result [facility] [address] * (ABNORMAL) Basic metabolic panel (06/12/2025 1:06 PM EDT) Sodium 136 133 - 146 mmol/L 06/12/2025 2:07 PM EDT [facility] Potassium 5.2 3.5 - 5.3 mmol/L 06/12/2025 2:07 PM EDT [facility] Comment:Hemolysis Present: R esults may be influenced artificially. Recommend recollection as clinically indicated. Chloride 102 98 - 110 mmol/L 06/12/2025 2:07 PM EDT [facility] CO2 23 21 - 33 mmol/L 06/12/2025 2:07 PM EDT [facility] Comment:High lactate dehydro genase concentrations in patient samples may cause falsely increased bicarbonate results. If markedly elevated LDH is observed or suspected, please assess results in conjunction with patient`s clinical presentation. In cases of discrepant results, consider evaluating CO2 in with a blood gas order. Anion Gap 11 3 - 16 mmol/L 06/12/2025 2:07 PM EDT [facility] BUN 40(H) 7 - 25 mg/dL 06/12/2025 2:07 PM EDT [facility] Creatinine 7.61(H) 0.60 - 1.30 mg/dL 06/12/2025 2:07 PM EDT [facility] Glucose 123(H) 70 - 100 mg/dL 06/12/2025 2:07 PM EDT [facility] Calcium 8.5(L) 8.6 - 10.3 mg/dL 06/12/2025 2:07 PM EDT [facility] Osmolality, Calculated 293 278 - 305 mOsm/kg 06/12/2025 2:07 PM EDT [facility] EGFR 8 06/12/2025 2:07 PM EDT [facility] Comment:As of 2021, the estimated GFR [...] PM EDT 06/12/2025 1:21 PM EDT Narrative [facility] - 06/12/2025 2:07 PM EDT If not done within 14 days or previous BMP results were abnormal us Kim Banerjee [facility] LAB BLOOD ORDERABLES Final Resul t [facility] [address] [place] [address] * Protime-INR (06/12/2025 12:08 PM EDT) Protime 13.1 12.1 - 15.1 seconds 06/12/2025 1:00 PM EDT [facility] INR 0.9 0.9 - 1.1 06/12/2025 1:00 PM EDT [facility] Comment: RECOMMENDED THERAPEUTIC RANGES USING INR : Stable oral anticoagulant therapy: 2.0 - 3.0 Mechanical prosthetic heart valve: 2.5 - 3.5 Recurrent acute myocardial infarction: 2.5 - 3.5 Plasma 06/12/2025 12:0 8 PM EDT 06/12/2025 12:48 PM EDT Narrative [facility] - 06/12/2025 1:00 PM EDT If not done within 14 days or preform day of procedure for any patients with liver issues or on Coumadin Kim Banerjee ENGINEERING PROJECT MANAGER LAB BLOOD ORDERABLES Final Resul t [facility] [address] [facility] [place] [address], [facility] * Cardiac Cath Documents Scan (06/12/2025 5:58 AM EDT) Scanning [facility] SCAN DOCS - NO RESULTS Final Res ult * Hepatic Function Panel (06/03/2025 11:24 AM EDT) Pathologist [facility] [place] Bilirubin, Direct 0.7 Bilirubin, Indirect 0.0 Alkaline Phosphatase 96 ALT 13 AST 18 Total Bilirubin 0.7 Total Protein 7.0 Plasma Narrative Resulting Agency Comment [facility] Result [facility] Historical Provider MD LAB BLOOD ORDERABLES Yoselin l Result * Cyclosporine level (06/03/2025 11:24 AM EDT) Pathologist [facility] Cyclosporine, Blood 42 Whole Blood Result [facility] Historical Provider MD LAB BLOOD ORDERABLES Yoselin l Result * (ABNORMAL) CBC and differential (06/03/2025 11:24 AM EDT) Pathologist [facility] Hemoglobin 13.7 13.5 - 17.5 g/dL Hematocrit [...] 4.3 10^3/mL Blood Narrative Resulting Agency Comment [facility] Historical Provider MD LAB BLOOD ORDERABLES Yoselin l Result * Renal Function Panel w/o EGFR (06/03/2025 11:24 AM EDT) Glucose 165 BUN 63 CO2 17 13 - 22 mmol/L Creatinine 10.20 Potassium 6.7 Sodium 138 Chloride 103 Phosphorus 4.7 2.5 - 4.9 mg/dL Calcium 8.5 EGFR 7 mg/dL Albumin 4.4 3.5 - 5.0 g/dL Blood Narrative Resulting Agency Comment [facility] Historical Provider MD LAB BLOOD ORDERABLES Yoselin l Result * ECHO LIMITED W/ DOPPLER AND STRAIN (04/21/2025 11:05 AM EDT) Anatomical Region Laterality Modality Chest Ultrasound 04/21/2025 10:3 7 AM EDT Narrative 04/25/2025 11:46 AM EDT * [facility] - Echocardiology Lab* [address] [place] [address], [place] [address] Transthoracic Echocardiogram Patient: Aiden Stauffer Room: ECHO LAB Height: 69in MR Number: [id number] : 1975 Weight: 278lb Account: [id number] Gender: M BP: 155 / 93 Study Date: 04/21/2025 Age: 50 BSA: 2.54m^2 Referring physician: Destin Rawls Interpreting physician: Thania Carvajal MD PERFORMING [facility]Thania Carvajal OPTICAL MECHANIC APPRENTICE Elsie Carrero [facility] RVT ORDERING Govil, Destin REFERRING Govga, Destin ATTENDING Govsara, Destin Procedure:TRANSTHORACIC ECHO (TTE) Order: Accession LIMITED Number:[id number] Indications: Essential hypertension (I10). Type 2 diabetes [...] Reviewed and confirmed by Thania Carvajal MD [id number] Procedure Note Thania Carvajal MD - 04/25/2025 * [facility] - EchocardiologyLab* [address] [facility], [address] [place], [place] [address] Transthoracic Echocardiogram Patient: Aiden Stauffer Room: ECHO LAB Height: 69in MR Number: [id number] : 1975 Weight: 278lb Account: [id number] Gender: M BP: 155 / 93 Study Date: 04/21/2025 Age: 50 BSA: 2.54m^2 Referring physician: Destin Rawls Interpreting physician: Thania Carvajal MD PERFORMING [facility]-Thania Carvajal OPTICAL MECHANIC APPRENTICE Elsie Carrero [facility] ORDERING Destin Rawls REFERRING Destin Rawls ATTENDING Destin Rawls Procedure:TRANSTHORACIC ECHO (TTE) Order: Accession LIMITED Number:[id number] Indications: Essential hypertension (I10). Type 2 diabetesmellitus [...] Reviewed and confirmed by Thania Carvajal MD [id number] Destin Rawls MD CV ECHO ORDERABLES Final Result * Hepatitis C antibody (02/04/2025 12:48 PM EDT) HCV Ab Nonreactive Nonreactive 02/04/2025 2:33 PM EDT [facility] Comment:Health Department no tified in accordance with reportable infectious disease guidelines. Serum 02/04/2025 12:4 8 PM EDT 02/04/2025 1:21 PM EDT [facility] - 02/04/2025 2:33 PM EDT Antibodies to HCV not detected; does not exclude the possibility of exposure to HCV. Ameya Arroyo MD LAB BLOOD ORDERABLES Final Resul t [facility] [address] [facility] * HIV-1 and HIV-2 antibodies (02/04/2025 12:48 PM EDT) Pathologist [facility] [place] HIV 1+2 AB/AGN Nonreactive Nonreactive 02/04/2025 2:27 PM EDT [facility] Serum 02/04/2025 12:4 8 PM EDT 02/04/2025 1:34 PM EDT [facility] - 02/04/2025 2:27 PM EDT \HIVRNR Ameya Arroyo MD LAB BLOOD ORDERABLES Final Resul t [facility] [address] [place], [place] [address] * (ABNORMAL) Hemoglobin A1c (02/04/2025 12:48 PM EDT) Hemoglobin A1C 6.4(H) 4.0 - 5.6 % 02/04/2025 9:06 PM EDT [facility] Comment: Hemoglobin A1c Interpretation Guidelines: Normal: [...] 8 PM EDT 02/04/2025 1:35 PM EDT Ameya Arroyo MD LAB BLOOD ORDERABLES Final Resul t [facility] [address] [place] [address], [facility] * Endoscopy, colon, diagnostic (03/23/2022 9:13 AM EDT) 03/23/2022 9:13 AM EDT Narrative [facility] - 03/23/2022 9:51 AM EDT [id number] Procedure Date: 03/23/2022 9:13 AM Patient Name: [...] verified by the physician, the nurse, the retail pharmacist and the environmental laboratory technician in the procedure room. Mental Status [...] for surveillance. Procedure Code(s): --- Professional --- 46129, GC, Colonoscopy, flexible; diagnostic, including collection of specimen(s) by brushing or washing, when performed (separate procedure) Diagnosis Code(s): --- Professional --- K64.8, Other hemorrhoids K92.1, Melena (includes Hematochezia) CPT copyright 2020 [employer]. All rights reserved. The codes documented in this report are preliminary and upon maintainer sewer and waterworks review may be revised to meet current compliance requirements. ABA MOORE Aba Moore, 03/23/2022 9:51:42 AM Husam Wilmer Hoyos, 03/23/2022 9:50:30 AM Scope Withdrawal Time 0 hours 8 minutes 24 seconds Total Procedure Duration Time 0 hours 15 minutes 38 seconds Scope In: 9:18:06 AM Scope Out: 9:33:[address] [place] [address] [id number] us Provider Not In System GI PROCEDURE ORDERABLES F inal Result [facility] [address] [facility] [place] [address] * (ABNORMAL) Occult Blood (06/15/2020 9:10 AM EST) Occult Blood, Stool #1 Positive(A ) Negative 06/15/2020 1:39 PM EST [facility] Stool specimen (specimen) FECES / Unknown 06/15/2020 9:10 AM EST 06/15/2020 11:52 AM EST Comment:F us Yessy Molina MD BODY FLUIDS AND STOOLS ORDERABLES Final Result [facility] [address] [place] [address], [facility] from Last 3 Months or Most Recently Relevant to Health Maintenance
--- OUTSIDE RECORDS SUMMARY | 2025-07-07 13:36 | XMS_ITS | Encounter Summary ---
Author Organization [facility] Address [facility] [place] [address] Care Team Providers Care Finisher Map And Chart Name Role Phone Maile Vlales RN Unavailable Unavail able Estephania Sharif PharmD Unavailable Christine Edgar Tolentino MD Primary Care Provider [phone] Khari Lema MD Unavailable Stan Moise RN Unavailable Unavail able Source [...] release of HIV test results or diagnoses. [id number] Health Reason for Visit * Reason Comments Medical Problem Symptomatic 1st Atte mpt Encounter Details Date Type Department Care Team (Late st Contact Info) Description 06/27/2025 Telephone [facility] Cardiology at [facility] Office [address] [place] [address] Lianet Mayen, RAMON [address] [place] [address] Medical Problem (Symptomatic 1st Attempt/) Social History Tobacco Use Types Packs/Day Years Used Date Smoking Tobacco: Never Smokeless Tobacco: Never Alcohol Use Standard Drinks/Week Comments Never 0 (1 standard drink = 0.6 oz pur e alcohol) [facility] Utilities Answer Date Recorded In [...] living in a alf (including now)? No 06/12/2025 Yearly Questionnaire Answer [...] Miscellaneous Notes * Telephone Encounter - Vera Moreno MA - 06/27/2025 1:49 PM EST Pt called states after he takes blood thinner his fingers hurt and burn. States right now they hurtand burn and its radiating into his right elbow. Could not get in contact with NT or escalation. documented in this encounter Plan of Treatment Not on file documented as of this encounter Visit Diagnoses Not on filedocumented in this encounter Additional Health Concerns Assessment Noted Time PHQ-9 Depression Total Score: 0 12/06/19 18 3:00 PM EDT documented as of this encounter Care Teams Finisher Map And Chart Relationship Specialty Start Date End Date Edgar Fournier MD [address] [place] [address] [place] [address] PCP - General 06/12/25 Maile Valles, RN Txp Post Coordinator Transplant Hepatology 11/07/17 Estephania Sharif, PharmD Pharmacist Pharmacist 11/11/19 Khari Lema MD [address] [facility] [address] [place] [address] Txp Activity Aid Transplant Hepatology 05/29/25 Stan Moise, RN Registered Nurse 06/26/25 documented as of this encounter
--- OUTSIDE RECORDS SUMMARY | 2025-07-07 13:36 | XMS_ITS | Encounter Summary ---
Author Organization [facility] Address [address] [place] [address] Care Team Providers Care Container Finishing Inspector Name Role Phone Edgar Fournier MD Primary Care Provider Enrique Griffith MD Unavailable [phone] Encounter Details Date Type Department Care Team (Late st Contact Info) Description 08/30/2016 [facility] Encounter [facility] [address] [place] [address] Bridgett Márquez, RN [facility] [id number] [address] [place] [address] Social History Tobacco Use Types Packs/Day Years [...] patient. He adv he was admitted to [facility] for pneumonia and possible kidney stones. He is home and feeling a little better. Will request records from [facility]. documented in this encounter Plan of Treatment Not on file documented as of this encounter Visit Diagnoses Not on filedocumented in this encounter Additional Health Concerns Infection Onset Date Last Indicated Resolved Time COVID-19 Rule-Out 11/08/2021 11/08/2021 11/08/2021 8:06 AM EDT documented as of this encounter Care Teams Container Finishing Inspector Relationship Specialty Start Date End Date Edgar Fournier MD [address] [place] [id number] PCP - General 12/25/20 Enrique Griffith MD [address] [place] [id number] Referring Physician Nephrology 01/08/21 documented as of this encounter
--- OUTSIDE RECORDS SUMMARY | 2025-07-07 13:36 | XMS_ITS | Clinical Summary ---
Author Organization [facility] Address [address] [place] [address] Care Team Providers Care Incident Response Lead Name Role Phone Maile Valles RN Unavailable Unavail able Estephania SharifD Unavailable Christine Edgar Tolentino MD Primary Care Provider [phone] Khair Lema MD Unavailable [phone] Stan Moise RN Unavailable Unavail able Source [...] information is not sufficientfor the purposes of therelease of HIV test results or diagnoses. [id number] Allergies Active Allergy Reactions Criticality Noted [...] non-formulary phosphate binder (xphozah) - Continue ergocalciferol 15435 TTS Primary hypertension 12/03/2024 Assessment & Plan [...] Abdominal pain 04/28/2024 Incisional hernia following transplant S/P right heart catheterization 11/22/2022 Hematochezia 03/16/2022 [...] for prophylaxis/suppression. Hep B viral load at [facility] was detectable, but to low to [...] home. He was getting once daily at [facility]. Will start lorazepam instead since it [...] in dialysis. PLAN: Continue epoetin 6000 units Mon/Mon/Mon Transfuse [...] cyclosporine. Levels were below goal while at [facility]; dose increased. PLAN: Continue cyclosporine 75 mg [...] hepatitis B positive). Hep B levels at [facility] were detectable, but to low to [...] AV fistula malfunction 06/18/2020 06/22/2020 Esophageal candidiasis 06/08/202006/22 Assessment & Plan (06/14/2020 10:23 AM EST): On fluconazole (luz seen on EGD). Monitoring cyclosporine while on fluconazole; level is appropriate. PLAN: Continue fluconazole 200 mg PO daily Assessment & Plan (06/09/2020 6:22 PM EDT): Currently on fluconazole. 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 06/09/2020 Altered mental state 04/28/2020 Esophagitis 11/12/2019 06/08/2020 Other fatigue 11/12/2019 06/08/2020 Vitamin D deficiency, unspecified 11/12/2019 11/14/2022 Unspecified protein-calorie malnutrition 11/12/2019 06/08/2020 Renal osteodystrophy 11/12/2019 020 Other disorders of electroly te and fluid balance, not elsewhere classified 11/12/20192019 Nausea 11/12/2019 06/08/2020 terminal carman (current) use of insulin 11/12/2019 06/08/2020 Hypocalcemia 11/12/2019 06/08/2020 Group C streptococcal infection 07/20/2019 06/08/2020 Diarrhea in adult patient 06/28/2019 Unstable angina pectoris 06/04/2018 Overview (06/04/2018): Added automatically from request for surgery [id number] Abnormal stress test 06/04/2018 022 Overview (06/04/2018): Added automatically from request for surgery [id number] Assessment & Plan (06/26/2022 1:30 PM EST): No evidence of CAD on angio Peripheral edema 10/31/2017 06/08/2020 Liver transplant candidate 10/07/2017 0 10/31/2017 S/P TIPS (transjugular intra hepatic portosystemic shunt) 08/21/2017 10/31/2017 Pre-transplant evaluation fo r chronic liver disease 08/18/2017 10/31/2017 Ascites 08/18/2017 08/21/2017 Hepatic encephalopathy 08/18/201710/31 Esophageal varices with bleeding 08/18/2017 10/31/2017 Pre-op evaluation 06/08/2020 Vertebral osteomyelitis 04/0 10/2022 Encounters Date Type Department Care Team Description 07/03/[address] [facility] Cardiology at [facility] [address] [place] [phone] Lianet Mayen CNP Medication Management (Medication Regimen ) 06/27/[address] [facility] Cardiology at [facility] [address] [place] [phone] Lianet Mayen CNP Medical Problem (Symptomatic 1st Attempt/) 06/26/[address] [facility] Kidney Transplant at [facility] [address] [place] [phone] Stan Moise RN 06/18/[address] [facility] Cardiology at [facility] [address] [place] [phone] Lianet Mayen CNP Results (Fax Results 1st Attempt ) 06/16/2025 Results Follow-Up [facility] Cardiac Liner Installer [address] [place] [address] Amber Galdamez RN Cardiac Cath 06/12/2025 2:58 PM EDT - 06/12/2025 3:59 PM EDT Surgery [facility] Cardiac Liner Installer [address] [place] [address] Cuong Dobson MD Left and Right Heart Cath 06/12/2025 11:37 AM EDT - 06/13/2025 9:45 AM EDT Hospital Encounter [facility] CVR [address] [facility] [place] [address] Cuong Dobson MD H/O heart artery stent (Primary Dx); Essential (primary) hypertension; Type 2 diabetes 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, with long-term current use of insulin ([facility] ESRD (end stage renal disease) on dialysis (CMS-HCC); Pre-transplant evaluation for kidney transplant; High risk surgery, pre-operative cardiovascular examination Discharge Disposition: Home or Self Care WITHOUT Home Care Services 06/06/[address] [facility] Kidney Transplant at [address] [place] [phone] Stan Moise, JANA 06/05/[address] [facility] Cardiology at [facility] [address] [facility] [address] [place] [phone] Betty Fox, JANA 06/04/[address] [facility] Liver Transplant at [address] [place] [address] Shanthi Chacko MA Consult; Results 06/03/[address] [facility] Liver Transplant at [address] [place] [address] Genevieve Palencia MA 06/03 Labs entered from [facility] 06/03/[address] [facility] Liver Transplant at [address] [place] [address] Genevieve Palencia MA 05/29/2025 Orders Only [facility] Liver Transplant at [address] [place] [address] Maile Valles, JANA S/P liver transplant ([facility]) (Primary Dx); Immunosuppression ([facility]) 05/28/[address] [facility] Liver Transplant at [address] [place] [address] Bridgett Ansari MA 05/16/[address] [facility] Cardiology at [facility] [address] [facility] [address] [place] [address] Lianet Mayen CNP Orders (Order Clarification Request ) 05/12/[address] [facility] Kidney Transplant at [facility] [address] [facility] [address] [place] [phone] Genny Campos MA 05/09/[address] [facility] Cardiology at [facility] Office [address] [facility] [address] [place] [phone] Lianet Mayen CNP Orders (Order Clarification Request ) 05/09/2025 Orders Only [facility] Kidney Transplant at [place] [id number] [facility] [address] [place] [address] Stan Moise, RN Type 2 diabetes 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, with long-term current use of insulin ([facility]) (Primary Dx); ESRD (end stage renal disease) on dialysis ([facility]); Pre-transplant evaluation for kidney transplant 05/09/[address] [facility] Kidney Transplant at [place] [id number] [facility] [address] [place] [phone] Stan Moise, RN 05/09/2025 Orders Only [facility] Kidney Transplant at [address] [place] [address] Stan Moise, RN Type 2 diabetes 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, with long-term current use of insulin ([facility]) (Primary Dx); ESRD (end stage renal disease) on dialysis ([facility]); Pre-transplant evaluation for kidney transplant 05/02/2025 Chart Note [facility] Kidney Transplant at [address] [place] [address] Stan Moise, RN Chart reviewed following recent completed testing. Completed testing 04/21/2025 1:00 PM EDT Office Visit [facility] ENT at [facility] [place] [address] [facility] [address] [place] [phone] Tasha Vogt PA Chronic myringitis, right (Primary Dx); Skin lesion of right arm; Left chronic serous otitis media; Dysfunction of both eustachian tubes 04/21/2025 12:30 PM EDT Procedure visit [facility] ENT at [facility] Neuroscience [place] [address] [place] [phone] Marky Breen Au.D. Baum, Meredith L, Au.D. Sensorineural hearing loss, asymmetrical (Primary Dx) 04/21/2025 9:41 AM EDT - 04/21/2025 11:59 PM EDT Hospital Encounter [facility] Echocardiography at [facility] [address] [facility] [address] [place] [address] Destin Rawls MD Essential (primary) hypertension; Type 2 diabetes 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, with long-term current use of insulin ([facility]); ESRD (end stage renal disease) on dialysis ([facility]); Pre-transplant evaluation for kidney transplant Discharge Disposition: Home or Self Care WITHOUT Home Care Services 04/07/[address] [facility] Kidney Transplant at [facility] [address] [facility] [address] [place] [address] Genny Campos MA from Last 3 Months Immunizations Immunization Administration Dates Next Due COVID-19, mRNA, Moderna monovalent, age 12+ 09/14,08/17/2021 Family History Medical History Relation Comments Alcohol [...] drink = 0.6 oz pur e alcohol) [facility] Utilities Answer Date Recorded In the past [...] time in the past 12 m [facility], were you homeless or living in [...] 8:00 AM EDT Inhaled Oxygen Concentration 95% 8:00 AM EDT Weight 127.6 kg (281 lb 6.4 oz) 025 12:01 PM EDT Height 175.3 cm (5' 9 ) 06/12/2025 12:0 1 PM EDT Body Mass Index 41.56 06/12/2025 12:01 PM EDT Plan of Treatment Health Maintenance Due Date Last Done Comments Immunization: DTaP/Tdap/Td (1 - Tdap) 1993 Immunization: Zoster (1 of 2) 1993 Diabetic Eye Exam (MyChart) 08/31/2017 Immunization: Pneumococcal (3 of 3 - PCV) 08/08/2018 08/08/2017, 01/05/2016 Cologuard (FIT-DNA) 2019 Stool Testing (gFOBT) 06/15/2021 06/15/2020, 019 Immunization: COVID-19 (3 - Moderna risk series) 10/26/2021 09/28/2021, 08/17/2021 Abnormal Colonoscopy Follow Up 03/23/2023 03/23/2022, 03/23/2022, 03/23/2022 Osteoporosis Screening (DXA Scan) 02/26/2024 04/28/2016 Immunization: Influenza (MyChart) (#1) 2025 04/29/2024, 08/08/2017 Hemoglobin A1C Monitoring (MyChart) 08/06/2025 02/04/2025, 11/18/2024, 08/09/2024, Additional history exists Depression Screening 04/21/2026 04/21/2025, 02/05/2025, 09/10/2024, Additional history exists Renal Function/GFR 06/13/2026 06/13/2025, 1 , 06/03/2025, Additional history exists Lipid Panel 06/13/2030 06/13/2025, 01/13, 04/07/2022, Additional history exists Colonoscopy 03/23/2032 03/23/2022, 03/14, 03/23/2022 Colorectal Cancer Screening (MyChart) 03/23/2032 HIV Screening Completed 02/04/2025, 11/2023, 03/18/2022, Additional history exists Hepatitis C Screening (MyChart) Completed 02/04/2025, 04/17/2024, 11/04/2023, Additional history exists Immunization: HPV Aged Out No longer eligible based on patient's age to complete this topic Medical Devices Implanted Type Area Event Marketing Coordinator Device Identifier Shelf Expiration Date Model / Serial / Lot Bioflo Duramax - [id number] Implanted:Qt y: 1 on 04/18/2024 by Odette Weston CNP at [facility] Main CatheterImp [employer] 08/13/2025 [id number] / / [id number] System Cardiac Cardiomems Pulmonary Artery Sensor Delivery Implanted:Qt y: 1 on 06/23/2022 by Fermín Schulte MD at [facility] Main Pacemaker Left: Lung [facility] [employer] 03/29/2024 CM PATIENT SYSTEM / / [id number] Cor Stnt 3.5mm 32mm Sng Megatron Everolimus Pltn Cr System Lv Prox Implanted:Qt y: 1 on 06/12/2025 by Cuong Dobson MD at [facility] Main Stent Left: Coronary [employer] [id number] 12/10/2026 [id number] / / [id number] Description:mid LAD Liver Implanted:Qt y: 1 on 10/08/2017 by Ami Rossi MD at [facility] Main N/A: Abdomen [id number] / [id number] / [id number] Description:left center Procedures Procedure Name Priority Date/Time [...] disease, with long-term current use of insulin ([facility]) ESRD (end stage renal disease) on dialysis ([facility]) Pre-transplant evaluation for kidney transplant High risk [...] disease, with long-term current use of insulin ([facility]) ESRD (end stage renal disease) on dialysis ([facility]) Pre-transplant evaluation for kidney transplant HIV 1+2 ANTIBODY/ANTIGEN WITH REFLEX Routine 02/04/2025 12:48 PM EDT Essential (primary) hypertension Type 2 diabetes 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, with long-term current use of insulin ([facility]) ESRD (end stage renal disease) on dialysis ([facility]) Pre-transplant evaluation for kidney transplant Routine history and physical examination of adult HEMOGLOBIN A1C Routine 02/04/2025 12:48 PM EDT Essential (primary) hypertension Type 2 diabetes 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, with long-term current use of insulin ([facility]) ESRD (end stage renal disease) on dialysis ([facility]) Pre-transplant evaluation for kidney transplant Routine history and physical examination of adult HEPATITIS C ANTIBODY Routine 02/04/2025 12:48 PM EDT Essential (primary) hypertension Type 2 diabetes 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, with long-term current use of insulin ([facility]) ESRD (end stage renal disease) on dialysis ([facility]) Pre-transplant evaluation for kidney transplant Routine history and physical examination of adult ENDOSCOPY, COLON Routine 03/23/2022 9:13 AM EDT OCCULT BLOOD Routine 06/15/2020 9:10 AM EST from Last 3 Months or Most Recently Relevant to Health Maintenance Results * EKG - scan (06/17/2025 4:36 PM EST) us Scanning Uchhim SCAN DOCS - NO RESULTS Final Res ult * (ABNORMAL) POC Glucose Monitoring Device (06/13/2025 8:20 AM EDT) Pathologist [facility] POC Glucose Monitoring Device 149(H) 70 - 100 mg/dL 06/13/2025 8:22 AM EDT [facility] Blood 06/13/2025 8:20 AM EDT 06/13/2025 8:21 AM EDT Cuong Dobson MD POINT OF CARE TEST ORDERABLES F inal Result [facility] [address] * (ABNORMAL) Renal Function Panel w/EGFR (06/13/2025 3:09 AM EDT) Pathologist [facility] Sodium 132(L) 133 - 146 mmol/L 06/13/2025 3:48 AM EDT [facility] Potassium 5.0 3.5 - 5.3 mmol/L 06/13/2025 3:48 AM EDT [facility] Chloride 98 98 - 110 mmol/L 06/13/2025 3:48 AM EDT [facility] CO2 22 21 - 33 mmol/L 06/13/2025 3:48 AM EDT [facility] Comment:High lactate dehydro genase concentrations in patient samples may cause falsely increased bicarbonate results. If markedly elevated LDH is observed or suspected, please assess results in conjunction with patient`s clinical presentation. In cases of discrepant results, consider evaluating CO2 in with a blood gas order. Anion Gap 12 3 - 16 mmol/L 06/13/2025 3:48 AM EDT [facility] BUN 49(H) 7 - 25 mg/dL 06/13/2025 3:48 AM EDT [facility] Creatinine 8.83(H) 0.60 - 1.30 mg/dL 06/13/2025 3:48 AM EDT [facility] Glucose 171(H) 70 - 100 mg/dL 06/13/2025 3:48 AM EDT [facility] Calcium 8.5(L) 8.6 - 10.3 mg/dL 06/13/2025 3:48 AM EDT [facility] Phosphorus 5.1(H) 2.1 - 4.7 mg/dL 06/13/2025 3:48 AM EDT [facility] Albumin 3.9 3.5 - 5.7 g/dL 06/13/2025 3:48 AM EDT [facility] Osmolality, Calculated 291 278 - 305 mOsm/kg 06/13/2025 3:48 AM EDT [facility] EGFR 7 06/13/2025 3:48 AM EDT [facility] Comment:As of 2021, the estimated [...] MD LAB BLOOD ORDERABLES Final Resul t [facility] [address] [place] [address], [facility] * (ABNORMAL) CBC (06/13/2025 3:09 AM EDT) Only the most recent of2 resultswithin the time period is included. WBC 5.3 3.8 - 10.8 10E3/uL 06/13/2025 3:44 AM EDT [facility] RBC 4.22 4.20 - 5.80 10E6/uL 06/13/2025 3:44 AM EDT [facility] Hemoglobin 13.4 13.2 - 17.1 g/dL 06/13/2025 3:44 AM EDT [facility] Hematocrit 40.8 38.5 - 50.0 % 06/13/2025 3:44 AM EDT [facility] MCV 96.7 80.0 - 100.0 fL 06/13/2025 3:44 AM EDT [facility] MCH 31.7 27.0 - 33.0 pg 06/13/2025 3:44 AM EDT [facility] MCHC 32.8 32.0 - 36.0 g/dL 06/13/2025 3:44 AM EDT [facility] RDW 18.2(H) 11.0 - 15.0 % 06/13/2025 3:44 AM EDT [facility] Platelets 226 140 - 400 10E3/uL 06/13/2025 3:44 AM EDT [facility] MPV 7.7 7.5 - 11.5 fL 06/13/2025 3:44 AM EDT [facility] Whole Blood 06/13/2025 3:09 AM EDT 06/13/2025 3:22 AM EDT us Said Yomi PEREZ LAB BLOOD ORDERABLES Final Resul t [facility] [address] [place] [address], [facility] * (ABNORMAL) Lipid Profile (06/13/2025 3:09 AM EDT) Non-HDL Cholesterol, Calculated 140(H) 0 - 129 mg/dL 06/13/2025 3:48 AM EDT [facility] Comment: Desirable: < 130 mg/dL Above Desirable: 130-159 mg/dL Borderline High: 160-189 mg/dL High: 190-219 mg/dL Very High: > 219 mg/dL Cholesterol, Total 178 0 - 200 mg/dL 06/13/2025 3:48 AM EDT [facility] Triglycerides 308(H) 10 - 149 mg/dL 06/13/2025 3:48 AM EDT [facility] HDL 38(L) 60 - 92 mg/dL 06/13/2025 3:48 AM EDT [facility] Comment: LIPID PROFILE INTERPRETATION CHOLESTEROL,TOTAL(mg/dL) [...] LDL Cholesterol 78 mg/dL 3:48 AM EDT [facility] Plasma 06/13/2025 3:09 AM EDT 06/13/2025 3:22 AM EDT Narrative [facility] - 06/13/2025 3:48 AM EDT Can be obtained within 6 months prior to admission or during current admission LDL cholesterol calculated using the Friedewald equation. us Charlie Celaay MD LAB BLOOD ORDERABLES Final Resul t [facility] [address] [place] [address], [facility] * ECG 12 lead (MUSE) (06/12/2025 6:08 PM EDT) Only the most recent of2 resultswithin the time period is included. 06/12/2025 6:08 PM EDT Narrative [facility] - 06/14/2025 12:09 AM EDT Ventricular Rate: 99 BPM Atrial Rate: 99 BPM P-R Interval: 254 ms QRS Duration: 100 ms QT: 356 ms QTc: 456 ms P [place]: 47 degrees R [place]: 59 degrees T [place]: -9 degrees Diagnosis Line: SINUS RHYTHM WITH 1ST DEGREE A-V BLOCK ^ OTHERWISE NORMAL ECG ^ ^ Confirmed by MD KRISHNA, SAADIA [id number]) on 06/14/2025 12:09:14 AM us Charlie Celaya MD ECG ORDERABLES Final Result [facility] * LEFT AND RIGHT HEART CATHETERIZATION (06/12/2025 5:56 PM EDT) 06/12/2025 4:38 PM EDT Narrative [facility] - 06/15/2025 12:28 PM EST *[facility]* Cardiac Liner Installer [facility] [place], [place] [address] CATHETERIZATION LAB STUDY Patient: Aiden Stauffer Age: 50 Study 06/12/2025 W Date: Patient [id number] Gender: M Study 04:38:52 PM ID: Time: [...] 90mg BID Loaded with 180 mg in medical laboratory assistant Continue high intensity statin Cardiac Rehab Radial Hemostasis- Admit to CVICU/R D INTERN/6S service Dc in am if stable INDICATIONS: [...] manner. 3. Right radial artery access. A [id number] Glidesheath - Slender - .021 sheath was [...] stenosis in the mid LAD. 1. A 0.640d137mo Pressure Wire X wire was placed. 2. Balloon angioplasty was performed. A 3mm (D) x 15mm (L), Balloon, NC Euphora balloon was employed. The balloon was placed across the lesion and given two inflations with a maximum inflation pressure of 15atm. 3. A .[id number] Runthrough NS extra floppy wire was placed. [...] + !LV pressure s/d, ed !119/10, 18, dP/tg=9210nq Hg/s! + + + !Aortic pressure s/d [...] and electronically signed by Cuong Dobson MD [id number] Procedure Note Cuong Dobson MD - 06/15/2025 *[facility]* Cardiac Liner Installer [address] [place] [address] CATHETERIZATION LAB STUDY Patient: Aiden Stauffer Age: 50 Study 06/12/2025 W Date: Patient [id number] Gender: M Study 04:38:52PM ID: Time: : 1975 HT/WT: 175.3cm / 127.6kg Performing Physician: Cuong Dobson MD Ordering Physician: Lianet Mayen Fellow: MD Yomi aRmirez Said Procedures performed: - Left heart catheterization. [...] 90mg BID Loaded with 180 mg in medical laboratory assistant Continue high intensity statin Cardiac Rehab Radial Hemostasis- Admit to CVICU/R D INTERN/6S service Dc in am if stable INDICATIONS: [...] manner. 3. Right radial artery access. A [id number] Glidesheath - Slender - .021 sheath was [...] stenosis in the mid LAD. 1. A 0.220u975ri Pressure Wire X wire was placed. 2. Balloon angioplasty was performed. A 3mm (D) x 15mm (L), Balloon, NC Euphora balloon was employed. The balloon was placed across thelesion and given two inflations with a maximum inflation pressure of 15atm. 3. A .[id number] Runthrough NS extra floppy wire was placed. 4. Stent placement was performed. A 3.5mm (D) x 32mm (L), Stent, Synergy MEGATRON stent was used. The stent was advanced across the lesion and deployed with a single inflation and a maximum pressure of 15atm. STUDY COMPLETION: The patient tolerated the procedure well. There wereno complications. Contrast: Omnipaque 350 150ml (total dose). Goebrmomk214 50ml (wasted). Radiation: Fluoroscopy time: 16.4min. Total [...] + !LV pressure s/d, ed !119/10, 18, dP/av=1084bt Hg/s! + + + !Aortic pressure s/d [...] and electronically signed by Cuong Dobson MD [id number]:28:22 Lianet Mayen CNP [id number] Final Result Performing Organization Address City/[facility]/ZIP Co de Phone Number [facility] * POC Activated Clotting Time Low [...] ORDERABLES F inal Result Performing Organization Address [facility] de Phone Number [facility] [address] * (ABNORMAL) Basic metabolic panel (06/12/2025 1:06 PM EDT) Sodium 136 133 - 146 mmol/L 06/12/2025 2:07 PM EDT [facility] Potassium 5.2 3.5 - 5.3 mmol/L 06/12/2025 2:07 PM EDT [facility] Comment:Hemolysis Present: R esults may be influenced artificially. Recommend recollection as clinically indicated. Chloride 102 98 - 110 mmol/L 06/12/2025 2:07 PM EDT [facility] CO2 23 21 - 33 mmol/L 06/12/2025 2:07 PM EDT [facility] Comment:High lactate dehydro genase concentrations in patient samples may cause falsely increased bicarbonate results. If markedly elevated LDH is observed or suspected, please assess results in conjunction with patient`s clinical presentation. In cases of discrepant results, consider evaluating CO2 in with a blood gas order. Anion Gap 11 3 - 16 mmol/L 06/12/2025 2:07 PM EDT [facility] BUN 40(H) 7 - 25 mg/dL 06/12/2025 2:07 PM EDT [facility] Creatinine 7.61(H) 0.60 - 1.30 mg/dL 06/12/2025 2:07 PM EDT [facility] Glucose 123(H) 70 - 100 mg/dL 06/12/2025 2:07 PM EDT [facility] Calcium 8.5(L) 8.6 - 10.3 mg/dL 06/12/2025 2:07 PM EDT [facility] Osmolality, Calculated 293 278 - 305 mOsm/kg 06/12/2025 2:07 PM EDT [facility] EGFR 8 06/12/2025 2:07 PM EDT [facility] LAB Comment:As of 2021, the estimated [...] PM EDT 06/12/2025 1:21 PM EDT Narrative [facility] - 06/12/2025 2:07 PM EDT If not done within 14 days or previous BMP results were abnormal us Kim Banerjee [facility] BLOOD ORDERABLES Final Resul t Performing Organization Address [facility]/ZIP Co de Phone Number [facility] [address] * Protime-INR (06/12/2025 12:08 PM EDT) Protime 13.1 12.1 - 15.1 seconds 06/12/2025 1:00 PM EDT [facility] INR 0.9 0.9 - 1.1 06/12/2025 1:00 PM EDT [facility] Comment: RECOMMENDED THERAPEUTIC RANGES USING INR : Stable oral anticoagulant therapy: 2.0 - 3.0 Mechanical prosthetic heart valve: 2.5 - 3.5 Recurrent acute myocardial infarction: 2.5 - 3.5 Plasma 06/12/2025 12:0 8 PM EDT 06/12/2025 12:48 PM EDT Narrative [facility] - 06/12/2025 1:00 PM EDT If not done within 14 days or preform day of procedure for any patients with liver issues or on Coumadin Kim Banerjee [facility] BLOOD ORDERABLES Final Resul t Performing Organization Address [facility] Co de Phone Number [facility] [address] * Cardiac Cath Documents Scan (06/12/2025 5:58 AM EDT) Scanning [facility] SCAN DOCS - NO RESULTS Final Res ult * Hepatic Function Panel (06/03/2025 11:24 AM EDT) Bilirubin, Direct 0.7 Bilirubin, Indirect 0.0 Alkaline Phosphatase 96 ALT 13 AST 18 Total Bilirubin 0.7 Total Protein 7.0 Plasma Narrative Resulting Agency Comment [facility] Provider MD LAB BLOOD ORDERABLES Yoselin l Result * Cyclosporine level (06/03/2025 11:24 AM EDT) Cyclosporine, Blood 42 Whole Blood Result [facility] Provider MD LAB BLOOD ORDERABLES Yoselin l Result * (ABNORMAL) CBC and differential (06/03/2025 11:24 AM EDT) [facility] Hemoglobin 13.7 13.5 - 17.5 g/dL Hematocrit [...] 4.3 10^3/mL Blood Narrative Resulting Agency Comment [facility] Result [facility] Provider MD LAB BLOOD ORDERABLES Yoselin l Result * Renal Function Panel w/o EGFR (06/03/2025 11:24 AM EDT) [facility] Glucose 165 BUN 63 CO2 17 13 - 22 mmol/L Creatinine 10.20 Potassium 6.7 Sodium 138 Chloride 103 Phosphorus 4.7 2.5 - 4.9 mg/dL Calcium 8.5 EGFR 7 mg/dL Albumin 4.4 3.5 - 5.0 g/dL Blood Narrative Resulting Agency Comment [facility] Lab Result [facility] Provider MD LAB BLOOD ORDERABLES Yoselin l Result * ECHO LIMITED W/ DOPPLER AND STRAIN (04/21/2025 11:05 AM EDT) Anatomical Region Laterality Modality Chest Ultrasound 04/21/2025 10:3 7 AM EDT Narrative 04/25/2025 11:46 AM EDT * [facility] - Echocardiology Lab* [address], [address] [place] [address] Transthoracic Echocardiogram Patient: Aiden Stauffer Room: ECHO LAB Height: 69in MR Number: [id number] : 1975 Weight: 278lb Account: [id number] Gender: M BP: 155 / 93 Study Date: 04/21/2025 Age: 50 BSA: 2.54m^2 Referring physician: Destin Rawls Interpreting physician: Thania Carvajal MD PERFORMING [facility]-Thania Carvajal GLASSWORKER Elsie Carrero [facility] RVT ORDERING Destin Rawls REFERRING Destin Rawls ATTENDING Destin Rawls Procedure:TRANSTHORACIC ECHO (TTE) Order: Accession LIMITED Number:[id number] Indications: Essential hypertension (I10). Type 2 diabetes [...] Reviewed and confirmed by Thania Carvajal MD [id number] Procedure Note Thania Carvajal MD - 04/25/2025 * [facility] - EchocardiologyLab* [address] [place] [address], [place] [address] Transthoracic Echocardiogram Patient: Aiden Stauffer Room: ECHO LAB Height: 69in MR Number: [id number] : 1975 Weight: 278lb Account: [id number] Gender: M BP: 155 / 93 Study Date: 04/21/2025 Age: 50 BSA: 2.54m^2 Referring physician: Destin Rawls Interpreting physician: Thania Carvajal MD PERFORMING [facility]-Thania Carvajal GLASSWORKER Elsie Carrero [facility] ORDERING Destin Rawls REFERRING Destin Rawls ATTENDING Destin Rawls Procedure:TRANSTHORACIC ECHO (TTE) Order: Accession LIMITED Number:[id number] Indications: Essential hypertension (I10). Type 2 diabetesmellitus [...] Reviewed and confirmed by Thania Carvajal MD [id number] Destin Rawls MD CV ECHO ORDERABLES Final Result * Hepatitis C antibody (02/04/2025 12:48 PM EDT) HCV Ab Nonreactive Nonreactive 02/04/2025 2:33 PM EDT [facility] Comment:Health Department no tified in accordance with reportable infectious disease guidelines. Serum 02/04/2025 12:4 8 PM EDT 02/04/2025 1:21 PM EDT Narrative [facility] - 02/04/2025 2:33 PM EDT Antibodies to HCV not detected; does not exclude the possibility of exposure to HCV. Ameya Arroyo MD LAB BLOOD ORDERABLES Final Resul t [facility] [address] [place] [address], [facility] * HIV-1 and HIV-2 antibodies (02/04/2025 12:48 PM EDT) HIV 1+2 AB/AGN Nonreactive Nonreactive 02/04/2025 2:27 PM EDT [facility] Serum 02/04/2025 12:4 8 PM EDT 02/04/2025 1:34 PM EDT Narrative [facility] - 02/04/2025 2:27 PM EDT \HIVRNR us Ameya Arroyo MD LAB BLOOD ORDERABLES Final Resul t [facility] [address] [facility] * (ABNORMAL) Hemoglobin A1c (02/04/2025 12:48 PM EDT) Hemoglobin A1C 6.4(H) 4.0 - 5.6 % 02/04/2025 9:06 PM EDT [facility] Comment: Hemoglobin A1c Interpretation Guidelines: [...] ORDERABLES Final Resul t Performing Organization Address City/[facility]/ZIP Co de Phone Number [facility] [address] [facility]. [address] * Endoscopy, colon, diagnostic (03/23/2022 9:13 AM EDT) 03/23/2022 9:13 AM EDT Narrative [facility] - 03/23/2022 9:51 AM EDT [id number] Procedure Date: 03/23/2022 9:13 AM Patient Name: [...] verified by the physician, the nurse, the renewable energy project manager and the mechatronics technician in the procedure room. Mental Status [...] for surveillance. Procedure Code(s): --- Professional --- 70045, GC, Colonoscopy, flexible; diagnostic, including collection of specimen(s) by brushing or washing, when performed (separate procedure) Diagnosis Code(s): --- Professional --- K64.8, Other hemorrhoids K92.1, Melena (includes Hematochezia) CPT copyright 2020 [employer]. All rights reserved. The codes documented in this report are preliminary and upon mill machinist review may be revised to meet current compliance requirements. ABA MOORE Aba Moore, 03/23/2022 9:51:42 AM Husam Wilmer Hoyos, 03/23/2022 9:50:30 AM Scope Withdrawal Time 0 hours 8 minutes 24 seconds Total Procedure Duration Time 0 hours 15 minutes 38 seconds Scope In: 9:18:06 AM Scope Out: 9:33:[address] [place] [address] us Provider Not In System GI PROCEDURE ORDERABLES F inal Result Performing Organization Address City/[facility]/ZIP Co de Phone Number [facility] [address] [place] [address] * (ABNORMAL) Occult Blood (06/15/2020 9:10 AM EST) Occult Blood, Stool #1 Positive(A ) Negative 06/15/2020 1:39 PM EST [facility] Stool specimen (specimen) FECES / Unknown 06/15/2020 9:10 AM EST 06/15/2020 11:52 AM EST Comment:F Yessy Molina MD BODY FLUIDS AND STOOLS ORDERABLES Final Result Performing Organization Address City/[facility] Co de Phone Number [facility] [address] from Last 3 Months or Most Recently Relevant to Health Maintenance Insurance Pam GARCIA JASON HERNANDEZ [id number] MEDICAID [place] Member Subscriber Plan / Payer (Ef fective 2022-Present) Name:Aiden Stauffer Jr. Relation to Subscriber:Self Name:Aiden Stauffer Jr. Payer ID:[id number] Group ID:Not on file Type:Medicaid [address] [employer] PLUS MEDICARE [employer] PLUS MEDICARE Advance Directives For more information, please contact: [phone] Documents on File Type Date Recorded Patient Ophthalmic Medical Assistant Expl anation Living Will Testament - scan 08/22/2017 11:37 AM * Full Code (Latest Code Status on File) Date Activated Date Inactivated Comments 06/12/2025 5:57 PM 06/13/2025 1:50 PM * Full Code Date Activated Date Inactivated Comments 06/12/2025 11:58 AM 06/12/2025 5:57 PM * Full Code Date Activated Date Inactivated Comments 12/03/2024 2:15 PM 12/08/2024 5:19 PM * Full Code Date Activated Date Inactivated Comments 08/08/2024 9:46 PM 08/10/2024 11:56 PM * Full Code Date Activated Date Inactivated Comments 04/28/2024 1:34 AM 04/28/2024 5:16 PM Care Teams Incident Response Lead Relationship Specialty Start Date End Date Edgar Fournier MD [address] [place] [address] PCP - General 06/12/25 Maile Valles, JANA Txp Post Coordinator Transplant Hepatology 11/07/17 Estephania Sharif, PharmD Pharmacist Pharmacist 11/11/19 Khari Lema MD [facility] [address] [place] [address] Txp Log Deckman Transplant Hepatology 05/29/25 Stan Moise, RN Registered Nurse 06/26/25
--- OUTSIDE RECORDS SUMMARY | 2025-07-07 13:36 | XMS_ITS | Encounter Summary ---
Author Organization [facility] Address [address] [place] [address] Care Team Providers Care Veterinary Pathologist Name Role Phone Maile Valles RN Unavailable Unavail able Estephania Sharif PharmD Unavailable Christine Edgar Tolentino MD Primary Care Provider [phone] Khari Lema MD Unavailable [phone] Stan Moise RN Unavailable Unavail able Source [...] release of HIV test results or diagnoses. [id number] Health Encounter Details Date Type Department Care Team (Late st Contact Info) Description 06/26/2025 Telephone [facility] Kidney Transplant at [address] [address] Stan Moise, RN Social History Tobacco Use Types Packs/Day Years Used Date Smoking Tobacco: Never Smokeless Tobacco: Never Alcohol Use Standard Drinks/Week Comments Never 0 (1 standard drink = 0.6 oz pur e alcohol) [facility] Utilities Answer Date Recorded In the [...] in the past 12 m [facility], were you homeless or living in a usp (including now)? No 06/12/2025 Yearly Questionnaire Answer [...] Progress Notes * Stan Moise RN - 06/26/2025 4:28 PM EST Returned call to patient who had questions about remaining needs. Evaluation pending Dental CXR He is aware and will get completed and let me know once it is complete. documented in this encounter Plan of Treatment Not on file documented as of this encounter Visit Diagnoses Not on filedocumented in this encounter Additional Health Concerns Assessment Noted Time PHQ-9 Depression Total Score: 0 12/06/19 18 3:00 PM EDT documented as of this encounter Care Teams Veterinary Pathologist Relationship Specialty Start Date End Date Edgar Fournier MD [address] [place] [address] PCP - General 06/12/25 Maile Valles, JANA Txp Post Coordinator Transplant Hepatology 11/07/17 Estephania Sharif, PharmD Pharmacist Pharmacist 11/11/19 Khari Lema MD [address] [facility] [address] [place] [address] Txp Roast Master Transplant Hepatology 05/29/25 Stan Moise, RN Registered Nurse 06/26/25 documented as of this encounter
--- OUTSIDE RECORDS SUMMARY | 2025-07-07 13:36 | XMS_ITS | Encounter Summary ---
Author Organization [facility] Address [address] [place] [address] Care Team Providers Care Precision Lathe Operator Name Role Phone Edgar Fournier MD Primary Care Provider [phone] Enrique Griffith MD Unavailable [phone] Encounter Details Date Type Department Care Team (Late st Contact Info) Description 09/14/2016 [facility] Historical OTTR [address] [place] [address] Provider, Amrit [address] [place] [address] Social History Tobacco Use Types Packs/Day [...] 21, not yet listed, [facility] and proceed with [facility] [...] says he had EGD this year at [facility]- please obtain reports. Splenic aneurysm: 2.8 cm on recent MRI- will follow up on imaging. DM-2:Has seen Chair Caner at yesterday- insulin is adjusted, need better [...] documented as of this encounter Care Teams Precision Lathe Operator Relationship Specialty Start Date End Date Edgar Fournier MD [address] [place] [address] PCP - General 12/25/20 Enrique Griffith MD [address] [place] [phone] Referring Physician Nephrology 01/08/21 documented as of this encounter
--- OUTSIDE RECORDS SUMMARY | 2025-07-07 13:36 | XMS_ITS | Encounter Summary ---
Author Organization [facility] Address [address] [place] [address] Care Team Providers Care Sports Lawyer Name Role Phone Edgar Fournier MD Primary Care Provider [phone] Enrique Griffith MD Unavailable Encounter Details Date Type Department Care Team (Late st Contact Info) Description 08/11/2017 [facility] Encounter Historical OTTR [address] [place] [address] Shara Huff, GAS SPECIALIST, DNP [address] [facility] [address] [place] [address] Social History Tobacco Use Types Packs/Day Years [...] cirrhosis, actively listed for transplant (at [facility]), who was admitted on 08/09 with c/o [...] on phone. * Progress Notes - Barry Pack Puller - 07/26/2017 10:07 AM EST Spoke to Mr. Stauffer. is unable to work now as he needs more help at home. They are able to paymortgage but having trouble with utility bills. Suggested that he contact [employer] [place] in his county as they are able to help people with utilities. Also advised him to contact his Medicaid Financial Aid Officer for questions about addition assistance at home. [...] ORDERABLES Final R esult Performing Organization Address [facility] de Phone Number EXTERNAL LAB * OTTR LAB RESULTS (MANUAL) (08/09/2017 3:06 PM EST) External Estimated GFR 52.27 EXTERNAL LAB 08/09/2017 3:06 PM EST Narrative [facility] - 08/09/2017 3:48 PM EST Automated LAB Interface Historical Provider LAB BLOOD ORDERABLES Final R esult Performing Organization Address [facility] de Phone Number EXTERNAL LAB * OTTR LAB RESULTS (MANUAL) (08/03/2017 11:29 PM EST) External Estimated GFR 56.45 EXTERNAL LAB 08/03/2017 11:2 9 PM EST Narrative [facility] - 08/04/2017 1:06 AM EST Automated LAB Interface Historical Provider LAB BLOOD ORDERABLES Final R esult Performing Organization Address [facility] de Phone Number EXTERNAL LAB documented in this encounter Visit Diagnoses Not on filedocumented in this encounter Additional Health Concerns Infection Onset Date Last Indicated Resolved Time COVID-19 Rule-Out 11/08/2021 11/08/2021 11/08/2021 8:06 AM EDT documented as of this encounter Care Teams Sports Lawyer Relationship Specialty Start Date End Date Edgar Fournier MD [address] [place] [address] PCP - General 12/25/20 Enrique Griffith MD [address] [place] [address] Referring Physician Nephrology 01/08/21 documented as of this encounter
--- OUTSIDE RECORDS SUMMARY | 2025-07-07 13:36 | XMS_ITS | Encounter Summary ---
Author Organization [facility] Address [address] [place] [address] Care Team Providers Care Golf Course Laborer Name Role Phone Edgar Fournier MD Primary Care Provider Enrique Griffith MD Unavailable [phone] Encounter Details Date Type Department Care Team (Late st Contact Info) Description 07/25/2016 [facility] OTTR Encounter Historical OTTR [address] [place] [address] Provider, Amrit [address] [place] [address] Social History Tobacco Use Types Packs/Day [...] to RTC 09-21-16 at 840. Orders in [facility]. Patient MELD Score 18, updated in [facility]. * Progress Notes - Bridgett Márquez - 07/21/2016 9:38 AM EST Rec'd ph call from patient. He advised he tried to mixing picker tender the pantoprazole that AG prescribed yesterday, but [...] He adv he was in ED at [facility] yesterday. He advised he fell and hit his head. They checked him out and sent him home. Will see if they luis alberto the labs I need. Phd Brand Comm- they will fax over records. * Progress Notes - Bridgett Márquez - 06/29/2016 1:13 PM EST Rec'd ph call from Nadya at [facility]. Patient auth recieved for transplant. PA # [id number]. Good from 06-27-2016 until patient has transplant. [...] Márquez - 06/07/2016 10:54 AM EDT Phd [facility]-s/w Nadya, she adv ABG not drawn. Patient [...] Rec'd ph call from Dr. Olmedo at [facility]. Patient admitted for HE. No signs of infection. Patient will not be able to make ABG tomorrow. They will draw ABG while he is inpatient. * Progress Notes - Bridgett Márquez - 06/02/2016 12:19 PM EDT Rec'd EGD from [facility], [email or web address] * Progress Notes - Bridgett Márquez [...] special diagnostics on the 5th fl of [facility] to notify pt. * Progress Notes - Bridgett Márquez - 06/02/2016 9:47 AM EDT Need to obtain copy of EGD from [facility]. Phd [facility]-s/w Heather, she will fax records to me. * Progress Notes - Bridgett Márquez - 06/02/2016 9:44 AM EDT Reviewed notes, patient still needs to have ABG for evaluation. ORders in [facility], msg to AG to schedule NIELS/ * Progress Notes - Bridgett Márquez - 05/23/2016 11:21 AM EDT Rec'd ph call from patient. He advised he has been released from [facility]. He adv hewas not happy with the treatment he had at the hospital, and is still feeling a little run down. Headv he is going to see PCP today. * Progress Notes - Bridgett Márquez - 05/19/2016 2:11 PM EDT Rec'd ph call from patient. He advised he was admitted to [facility] on Monday for elevated pneumonia. They are also treating him for elevated BS, possible kidney infection. * Progress Notes - Bridgett Márquez - 05/19/2016 2:07 PM EDT Rec'd msg from patient that he was in ED at [facility]. Phd patient cell- unable to leave a message. * Progress Notes - Bridgett Márquez - 05/17/2016 10:22 AM EDT Awaiting hepatology visit on 06-01 and endocrinology visit on 05-31 * Progress Notes - George November - 05/12/2016 11:08 AM EDT Patient scheduled for labs/hep on 06/01 arriving at 7:00am. [facility] to advise patient of time and date.Reminder [...] 05/04/2016 11:39 AM EDT Rec'd labs from [facility]. Pt MELD score is 18. Phd patient again- no answer. * Progress Notes - Bridgett Márquez - 05/04/2016 9:23 AM EDT Phd patient- no answer. Phd [facility]- s/w lab, they will fax me results. * Progress Notes - Bridgett Márquez - 05/03/2016 10:45 AM EDT Rec'd ph call from patient. He advised he has been feeling weak and dehydrated and would like to goto the ED at [facility]. I advised I will fax lab order. He understood. * Progress Notes - Bridgett Márquez - 05/02/2016 5:17 PM EDT Patient scheduled endocrinology appt 05-31-16 at 11:00am. Need Urgent MRI abdomen, orders in [facility], msg to AG to schedule. Need [...] socially cleared for listing. Full report in [facility]. * Progress Notes - Bridgett Márquez [...] 04/29. Will attempt to send schedule via [facility] Priority Mail Tracking No [id number] with another package at front office representative. He verbalized understanding. * Progress Notes - Bridgett Márquez - 04/25/2016 7:26 PM EDT Per committee decision, patient to have RAPID evaluation. Msg to AG to schedule * Progress Notes - Bridgett Márquez - 04/22/2016 2:[address] Ortega [phone]-s/w chief clerk, she will fax report to my [...] to call and get this report is [phone]. Pt has disc of the ECHO and will bringwith him to appt in the morning tomorrow, 04-22-16 but will not have the report to accompany. Note to Roxi Gamez and Darleen to f/u and get what is needed for dr visit tomorrow. * Progress Notes - Vera Rosales - 04/14/2016 3:54 PM EDT Spoke to Mr Stauffer again - encouraged him to follow up with Dr Ortega and have that Echo as recommended. The Echo is scheduled for 04/21 and the stress test is 9/15. Requested him to bring those resultswith him to his ICE on 04/22. He voiced understanding. * Progress Notes - Vera Rosales - 04/14/2016 3:45 PM EDT Mr Stauffer saw Dr Ortega in [place] for sleep apnea consult - they did [...] recommendation on how to proceed.Request sent to [facility] for review. * Progress Notes - Vera Rosales - 04/14/2016 11:23 AM EDT Spoke to Mr Stauffer - confirmed 04/22 7:40am register and labs/ CT abd with 8:40am registration and instruction to be NPO 4 hours and to return to clinic directly after CT to see surgeon. he voiced understanding and requested email for his appointment schedule. * Progress Notes - Vera Rosales - 04/13/2016 2:26 PM EDT Updated referral from Dr Friedman. * Progress Notes - Vera Rosales - 10/05/2015 9:[address] Chauhan office for updated - they have not seen him since July. * Progress Notes - Vera Rosales - 10/05/2015 9:40 AM EST Spoke to Mr Stauffer - confirmed his appointment with AG at [facility] on 10/08 at 2pm. He is concernedas his labs are showing some significant changes. Discussed him coming to ED if he needs to but keeping the appt with AG as she will best determine poc at this time. He agreed. [facility] had [facility] his [facility]. [...] EXTERNAL LAB - 07/01/2016 1:11 PM EST [facility] Historical Provider LAB BLOOD ORDERABLES Final R [...] EXTERNAL LAB - 06/30/2016 10:19 AM EST [facility] Historical Provider LAB BLOOD ORDERABLES Final R esult Performing Organization Address [facility] Co de Phone Number EXTERNAL LAB * OTTR LAB RESULTS (MANUAL) (06/21/2016 9:24 AM EST) External Estimated GFR 71.25 EXTERNAL LAB 06/21/2016 9:24 AM EST Narrative EXTERNAL LAB - 06/21/2016 10:47 AM EST Automated LAB Interface Historical Provider LAB BLOOD ORDERABLES Final R esult Performing Organization Address [facility]/ZIP Co de Phone Number EXTERNAL LAB * OTTR LAB RESULTS (MANUAL) (06/03/2016 9:19 PM EDT) External Estimated GFR 97.11 EXTERNAL LAB 06/03/2016 9:19 PM EDT Narrative EXTERNAL LAB - 06/03/2016 9:59 PM EDT Automated LAB Interface Historical Provider LAB BLOOD ORDERABLES Final R esult Performing Organization Address City/[facility]/ZIP Co de Phone Number EXTERNAL LAB [...] External Estimated GFR 59.07 EXTERNAL LAB 05/03/2016 3:3 6 PM EDT Narrative EXTERNAL LAB - 05/04/2016 11:38 AM EDT [facility] us Historical Provider LAB BLOOD ORDERABLES Final R esult EXTERNAL LAB * OTTR LAB RESULTS (MANUAL) (04/28/2016 10:50 AM EDT) External Estimated GFR 97.11 EXTERNAL LAB 04/28/2016 10:5 0 AM EDT Narrative EXTERNAL LAB - 04/28/2016 12:43 PM EDT Automated LAB Interface Historical Provider LAB BLOOD ORDERABLES Final R esult Performing Organization Address [facility] Co de Phone Number EXTERNAL LAB * OTTR LAB RESULTS (MANUAL) (04/22/2016 7:55 AM EDT) Pathologist [facility] External Estimated GFR 95.89 EXTERNAL LAB 04/22/2016 7:55 AM EDT Narrative EXTERNAL LAB - 04/22/2016 9:13 AM EDT Automated LAB Interface Historical Provider LAB BLOOD ORDERABLES Final R esult Performing Organization Address [facility] Co de Phone Number EXTERNAL LAB * OTTR LAB RESULTS (MANUAL) (03/16/2016 11:08 AM EDT) Pathologist [facility] External Estimated GFR 90.21 EXTERNAL LAB 03/16/2016 11:0 8 AM EDT Narrative EXTERNAL LAB - 03/16/2016 11:45 AM EDT Automated LAB Interface Historical Provider LAB BLOOD ORDERABLES Final R esult Performing Organization Address [facility] Co de Phone Number EXTERNAL LAB * OTTR LAB RESULTS (MANUAL) (10/08/2015 3:55 PM EST) Pathologist [facility] External Estimated GFR 92.41 EXTERNAL LAB 10/08/2015 3:55 PM EST Narrative EXTERNAL LAB - 10/12/2015 8:01 AM EST Automated LAB Interface Historical Provider LAB BLOOD ORDERABLES Final R esult Performing Organization Address [facility] Co de Phone Number EXTERNAL LAB documented in this encounter Visit Diagnoses Not on filedocumented in this encounter Additional Health Concerns Infection Onset Date Last Indicated Resolved Time COVID-19 Rule-Out 11/08/2021 11/08/2021 11/08/2021 8:06 AM EDT documented as of this encounter Care Teams Golf Course Laborer Relationship Specialty Start Date End Date Edgar Fournier MD [address] [place] [address] PCP - General 12/25/20 Enrique Griffith MD [address] [place] [address] Referring Physician Nephrology 01/08/21 documented as of this encounter
--- OUTSIDE RECORDS SUMMARY | 2025-07-07 13:36 | XMS_ITS | Encounter Summary ---
Author Organization [facility] Address [facility] [place] [address] Care Team Providers Care Reed Press Feeder Name Role Phone Maile Valles RN Unavailable Unavail able Estephania Sharif PharmD Unavailable Christine Edgar Tolentino MD Primary Care Provider [phone] Khari Lema MD Unavailable [phone] Stan Moise RN Unavailable Unavail able Source [...] release of HIV test results or diagnoses. [id number] Reason for Visit * Reason Comments Medication Management Medication Regimen Encounter Details Date Type Department Care Team (Late st Contact Info) Description 07/03/2025 Telephone [facility] Cardiology at [facility] Office [address] [facility] [address] [place] [address] Lianet Mayen CNP [address] [place] [address] Medication Management (Medication Regimen ) Social History Tobacco Use Types Packs/Day Years Used Date Smoking Tobacco: Never Smokeless Tobacco: Never Alcohol Use Standard Drinks/Week Comments Never 0 (1 standard drink = 0.6 oz pur e alcohol) [facility] Utilities Answer Date Recorded In [...] in the past 12 m [facility], were you homeless or living in a snf (including now)? No 06/12/2025 Yearly Questionnaire Answer [...] encounter Miscellaneous Notes * Telephone Encounter - Aury Somers RN - 07/03/2025 12:49 PM EST Spoke to patient and his dose was decreased and this issue is taken care of * Telephone Encounter - Rene Nuñez MA - 07/03/2025 9:42 AM EST Pt called to discuss regimen for the following medication: Name of Medication: carvedilol Reason for inquiry: He wants to know why he was taken off of RX Pt states he went to the ER yesterday and his heart rate was 41 in [facility] in [place], [place]. Pt states he was having weakness in legs and trouble with hands and denied any current symptoms. Please return call to [phone]. documented in this encounter Plan of Treatment Not on file documented as of this encounter Visit Diagnoses Not on filedocumented in this encounter Additional Health Concerns Assessment Noted Time PHQ-9 Depression Total Score: 0 12/06/19 18 3:00 PM EDT documented as of this encounter Care Teams Reed Press Feeder Relationship Specialty Start Date End Date Edgar Fournier MD [address] [place] [address] PCP - General 06/12/25 Maile Valles, JANA Txp Post Coordinator Transplant Hepatology 11/07/17 Estephania Sharif, DarrianD Pharmacist Pharmacist 11/11/19 Khari Lema MD [address] [facility] [address] [facility] [place] [address] Txp Manager Culinary Transplant Hepatology 05/29/25 Stan Moise, RN Registered Nurse 06/26/25 documented as of this encounter
--- OUTSIDE RECORDS SUMMARY | 2025-07-07 13:36 | XMS_ITS | Encounter Summary ---
Author Organization [facility] Address [facility] [place] [address] Care Team Providers Care Account Manager Name Role Phone Maile Valles RN Unavailable Unavail able Jack Ordoñez MD Unavailable [phone] Estephania Sharif PharmD Unavailable Christine vailable [...] release of HIV test results or diagnoses. [id number] Reason for Visit * Reason Comments Orders Order Clarification Request Encounter Details Date Type Department Care Team (Late st Contact Info) Description 05/16/2025 Telephone [facility] Cardiology at [facility] [address] [facility] [address] [place] [address] Lianet Mayen CNP [address] [place] [address] Orders (Order Clarification Request ) Social History Tobacco Use Types Packs/Day Years Used Date Smoking Tobacco: Never Smokeless Tobacco: Never Alcohol Use Standard Drinks/Week Comments Never 0 (1 standard drink = 0.6 oz pur e alcohol) [facility] Utilities Answer Date Recorded In the [...] any time in the past 12 m [facility], were you homeless or living in a half-way (including now)? No 12/03/2024 Yearly Questionnaire Answer [...] Please reach back out to her at [phone]. * Telephone Encounter - Betty Fox RN - 05/16/2025 2:16 PM EDT Called back and LVM. * Telephone Encounter - Johnnie Lozano MA - 05/16/2025 2:11 PM EDT Meg called requesting to thiago with Betty Fox RN on the following order: Order: Clarification needed: States she is still missing a part of the order. Please return call to [phone]. documented in this encounter Plan of Treatment Not on file documented as of this encounter Visit Diagnoses Not on filedocumented in this encounter Additional Health Concerns Assessment Noted Time PHQ-9 Depression Total Score: 0 12/06/19 18 3:00 PM EDT documented as of this encounter Care Teams Account Manager Relationship Specialty Start Date End Date Maile Valles RN Txp Post Coordinator Transplant Hepatology 11/07/17 Jack Ordoñez MD Consulting Physician Transplant Hepatology 01/05/18 Estephania Sharif, DarrianD Pharmacist Pharmacist 11/11/19 documented as of this encounter
--- OUTSIDE RECORDS SUMMARY | 2025-07-07 13:36 | XMS_ITS | Encounter Summary ---
Author Organization [facility] Address [facility][note 3][address] [place] [address] Care Team Providers Care Blind Lacer Name Role Phone Maile Valles RN Unavailable Unavail able Jack Ordoñez MD Unavailable [phone] Estephania SharifD Unavailable Christine vailable Source [...] release of HIV test results or diagnoses. [id number] Reason for Referral * Imaging/Cardiovascular Scan (Routine) - New Request Specialty Diagnoses / Procedures Referred By Contac t Referred To Contact Vascular Diagnoses Blood clot of neck vein Procedures Venous Duplex UE Bilateral Lianet Mayen CNP [address] [place] [address] Phone: tel: fax: Referral ID Status Reason Start Date Expiration Date V isits Requested Visits Authorized [id number] New Request 05/16/2025 11/12/2025 1 1 Reason for Visit * Reason Comments Orders Order Clarification Request Encounter Details Date Type Department Care Team (Late st Contact Info) Description 05/09/2025 Telephone [facility] Cardiology at [facility] Office [address] [place] [address] Lianet Mayen CNP [address] [address] Orders (Order Clarification Request ) Social History Tobacco Use Types Packs/Day Years Used Date Smoking Tobacco: Never Smokeless Tobacco: Never Alcohol Use Standard Drinks/Week Comments Never 0 (1 standard drink = 0.6 oz pur e alcohol) [facility] Utilities Answer Date Recorded In the past [...] any time in the past 12 m [facility], were you homeless or living in [...] PM EDT Faxed new order over. Returned HM call and LVM. Patient notified. * Telephone Encounter - Sonja Brar MA - 05/15/2025 9:15 AM EDT Yana is calling to follow up on this encounter. Please call [phone] just ask for Yana. * Telephone Encounter - Teresa Ochoa RN - 05/13/2025 12:29 PM EDT Spoke with Maru. Per Lianet orders need to stay the same. Indication is to check if his venous clots are gone. * Telephone Encounter - Ayde Lind MA - 05/13/2025 8:39 AM EDT Maru with [facility] called to ask that the US be reordered and re-faxed. States that the way it is ordered is asking for 3 separate ultrasounds to be scheduled. States it needs to be ordered as bilateral, upper extremity, arterial to avoid having to see the ptmore than once for US. Fax it to [phone]. Maru can be reached at [phone] if needed. * Telephone Encounter - Teresa Ochoa RN - 05/09/2025 3:46 PM EDT Orders faxed as requested * Telephone Encounter - Maru David MA - 05/09/2025 3:35 PM EDT Pt called requesting the following order be faxed. Order: US Destination: [facility] Fax#: [phone] Pt can be reached at [phone] (M) . documented in this encounter Plan of Treatment Scheduled Orders Name Type Priority Associated Diagnoses Orde r Schedule Venous Duplex UE Bilateral Imaging Routine Blood clot of neck vein 1 Occurrences starting 05/16/2025 until 05/16/2026 documented as of this encounter Visit Diagnoses Diagnosis Blood clot of neck vein- Primary documented in this encounter Additional Health Concerns Assessment Noted Time PHQ-9 Depression Total Score: 0 12/06/19 18 3:00 PM EDT documented as of this encounter Care Teams Blind Lacer Relationship Specialty Start Date End Date Maile Valles, JANA Txp Post Coordinator Transplant Hepatology 11/07/17 Jack Ordoñez MD Consulting Physician Transplant Hepatology 01/05/18 Estephania Sharif PharmD Pharmacist Pharmacist 11/11/19 documented as of this encounter
--- OUTSIDE RECORDS SUMMARY | 2025-07-07 13:36 | XMS_ITS | Encounter Summary ---
Author Organization [facility] Address [address] [place] [address] Care Team Providers Care Delivery Supervisor Name Role Phone Maile Valles RN [...] release of HIV test results or diagnoses. [id number] Health Encounter Details Date Type Department Care Team (Late st Contact Info) Description 05/09/2025 Orders Only [facility] at [address] [address] Stan Moise, RN Type 2 diabetes 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, with long-term current use of insulin ([facility]) (Primary Dx); ESRD (end stage renal disease) on dialysis ([facility]); Pre-transplant evaluation for kidney transplant Social History Tobacco Use Types Packs/Day Years Used Date Smoking Tobacco: Never Smokeless Tobacco: Never Alcohol Use Standard Drinks/Week Comments Never 0 (1 standard drink = 0.6 oz pur e alcohol) [facility] Utilities Answer Date Recorded In the [...] a skilled nursing (including now)? No 11/05/2023 Housing Stability Vital Sign Answer Gilbert e Recorded In the last 12 months, was t here a time when you were not able to pay the mortgage or rent on time? No 12/03/2024 In the past 12 months, how m any times have you moved where you were living? 0 12/03/2024 At any time in the past 12 m [facility], were you homeless or living in a skilled nursing (including now)? No 12/03/2024 Yearly Questionnaire Answer [...] disease, with long-term current use of insulin ([facility])- Primary ESRD (end stage renal disease) on dialysis ([facility]) End stage renal disease Pre-transplant evaluation for kidney transplant documented in this encounter Additional Health Concerns Assessment Noted Time PHQ-9 Depression Total Score: 0 12/06/19 18 3:00 PM EDT documented as of this encounter Care Teams Delivery Supervisor Relationship Specialty Start Date End Date Maile Valles, RN Txp Post Coordinator Transplant Hepatology 11/07/17 Jack Ordoñez MD Consulting Physician Transplant Hepatology 01/05/18 Estephania Sharif, Wilbert Pharmacist Pharmacist 11/11/19 documented as of this encounter
--- OUTSIDE RECORDS SUMMARY | 2025-07-07 13:36 | XMS_ITS ---
Author Organization [facility] Address [address] [place] [address] Care Team Providers Care Boating Safety Officer Name Role Phone Edgar Fournier MD Primary Care Provider Enrique Griffith MD Unavailable [phone] Transplant Episode Kidney Candidate [facility] ([place], [place]) [facility] Evaluation began on 02/04/2021 Marked as Active on 02/04/2021 Reason: Undergoing Evaluation Testing Kidney CoordinatorZion Virgen RN Phone: N/A Fax: N/A Email: N/A Scores Score Value Updated Exceptions/Reas ons CPRA Not available EPTS (Calc) 81 07/07/2025 [place] Organ Diagnosis Organ Primary Contributory Kidney Diabetes Mellitus - Type II Care Team Name Role Phone Fax Email Zion Virgen RN Kidney Coordinator N/A N/A N/A Jocelyn Conway LCSW Waste Disposal Attendant N/A N/A N/A Enrique Millan MD Referring Physician [phone] N/A Events Pre-Transplant Referred: 01/08/2021 Evaluation began: 02/04/2021 Committee: 11/05/2024 Dialysis History Dialysis History Start End Type Comments Center 01/16/2023 [facility] 09/26/2019 Hemodialysis [facility] D[facility] Information Center Phone Fax Address [facility] [phone] [employer] [facility] [address] [facility] [address] [facility] [phone] [address] [facility] [address]
--- OUTSIDE RECORDS SUMMARY | 2025-07-07 13:36 | XMS_ITS | Encounter Summary ---
Author Organization [facility] Address [address] [place] [address] Care Team Providers Care Horse Racing Analyst Name Role Phone Edgar Fournier MD Primary Care Provider [phone] Enrique Griffith MD Unavailable [phone] Encounter Details Date Type Department Care Team (Late st Contact Info) Description 09/13/2016 [facility] OTTR Encounter Historical OTTR [address] [place] [address] Bridgett Márquez, RN [facility]IVER [id number] [address] [place] [address] Social History Tobacco Use Types Packs/Day Years [...] documented as of this encounter Care Teams Horse Racing Analyst Relationship Specialty Start Date End Date Edgar Fournier MD [address] [place] [address] PCP - General 12/25/20 Enrique Griffith MD [address] [place] [id number] Referring Physician Nephrology 01/08/21 documented as of this encounter
--- OUTSIDE RECORDS SUMMARY | 2025-07-07 13:36 | XMS_ITS | Encounter Summary ---
Author Organization [facility] Address [address] [place] [address] Care Team Providers Care Guard Lieutenant Name Role Phone Maile Valles RN Unavailable [...] release of HIV test results or diagnoses. [id number] Health Encounter Details Date Type Department Care Team (Late st Contact Info) Description 05/09/2025 Telephone [facility] Kidney Transplant at [address] [address] Stan Moise, JANA Social History Tobacco Use Types Packs/Day Years Used Date Smoking Tobacco: Never Smokeless Tobacco: Never Alcohol Use Standard Drinks/Week Comments Never 0 (1 standard drink = 0.6 oz pur e alcohol) [facility] Utilities Answer Date Recorded In the past 12 months has [employer], gas, oil, or water company threatened to [...] in a intermediate (including now)? No 11/05/2023 Housing Stability Vital [...] in the past 12 m [facility], were you homeless or living in a intermediate (including now)? No 12/03/2024 Yearly Questionnaire Answer [...] asked. Orders entered and message sent to [place] to schedule. documented in this encounter Plan of Treatment Not on file documented as of this encounter Visit Diagnoses Not on filedocumented in this encounter Additional Health Concerns Assessment Noted Time PHQ-9 Depression Total Score: 0 12/06/19 18 3:00 PM EDT documented as of this encounter Care Teams Guard Lieutenant Relationship Specialty Start Date End Date Maile Valles, RN Txp Post Coordinator Transplant Hepatology 11/07/17 Jack Ordoñez MD Consulting Physician Transplant Hepatology 01/05/18 Estephania Sharif, Wilbert Pharmacist Pharmacist 11/11/19 documented as of this encounter
--- OUTSIDE RECORDS SUMMARY | 2025-07-07 13:38 | XMS_ITS | Encounter Summary ---
Author Organization [facility] Address [address] [place] [address] Care Team Providers Care Legger Press Operator Name Role Phone Maile Valles RN [...] release of HIV test results or diagnoses. [id number] Health Encounter Details Date Type Department Care Team (Late st Contact Info) Description 05/12/2025 Telephone [facility] Kidney Transplant at [address] [address] Genny Campos MA Social History Tobacco Use Types Packs/Day Years Used Date Smoking Tobacco: Never Smokeless Tobacco: Never Alcohol Use Standard Drinks/Week Comments Never 0 (1 standard drink = 0.6 oz pur e alcohol) [facility] Utilities Answer Date Recorded In the past 12 months has e [employer], gas, oil, or water company threatened to [...] in the past 12 m [facility], were you homeless or living [...] look into. PH # for Radiology is [phone]. documented in this encounter Plan of Treatment Not on file documented as of this encounter Visit Diagnoses Not on filedocumented in this encounter Additional Health Concerns Assessment Noted Time PHQ-9 Depression Total Score: 0 12/06/19 18 3:00 PM EDT documented as of this encounter Care Teams Legger Press Operator Relationship Specialty Start Date End Date Maile Valles, RN Txp Post Coordinator Transplant Hepatology 11/07/17 Jack Ordoñez MD Consulting Physician Transplant Hepatology 01/05/18 Estephania Sharif, Wilbert Pharmacist Pharmacist 11/11/19 documented as of this encounter
--- NOTE | 2025-07-07 13:45 | CA_ITS ---
APPROVED REPORT EXAM: Comprehensive 2D, Doppler, and color-flow Echocardiogram Rotary Swaging Machine Operator: Genevieve Flores RT(R) Ht: 5 ft 9 in Wt: 289lbs BSA: 2.42 BP: 152/94 mmHg Indications: CAD, first degree block M-Mode Dimensions RVDd 3.75 cm (0.9-2.6) LA Diam 4.43 cm (1.9-4.0) LVDd 4.73 cm (3.5-5.7) LVDs 3.50 cm (3.5-5.7) IVSd 1.39 cm (0.6-1.1) PWd 1.03 cm (0.6-1.1) EF (Teich) 51.00% FS 26.00% EDV (Teich) 103.90 mL ESV (Teich) 50.90 mL Mitral Valve MV PHT 53.0 ms Left Ventricle The left ventricle is normal size. Left ventricular systolic function is normal. The left ventricular ejection fraction is within the normal range. There is normal left ventricular wall thickness. There is normal LV segmental wall motion. The left ventricular diastolic function is normal. LVEF is 55% Right Ventricle The right ventricle is normal size. The right ventricular systolic function is normal. Atria The left atrium size is normal. The right atrium size is normal. There is no color Doppler evidence of interatrial shunt. Aortic Valve The aortic valve opens well. There is no hemodynamically significant aortic valvular stenosis. No aortic regurgitation is present. Mitral Valve The mitral valve is normal in structure. No evidence of mitral valve stenosis. Trace mitral regurgitation is present. Tricuspid Valve The tricuspid valve leaflets are thin and pliable. Trace tricuspid regurgitation. There is insufficient TR jet to estimate RVSP. Pulmonic Valve The pulmonary valve is grossly normal in structure. Trace pulmonic valve regurgitation is present. Great Vessels The aortic root is normal in size. IVC is normal in size and collapses >50% with inspiration. Pericardium There is no pericardial effusion. Other Information Study Quality: Technically Difficult Conclusion Normal biventricular systolic function. No significant valvular stenosis or regurgitation. Electronically signed by : Tianna Dick MD 07/14/2025 22:33:17
== END 2025-07-07 23:59 | disposition home or self-care (01) ==
LOC: RT 13:18
PROVIDERS: PCP Family Medicine; Visit Provider Internal Medicine
DX: I47.10 Supraventricular tachycardia, unspecified (principal); I49.3 Ventricular premature depolarization; I33.0 Acute and subacute infective endocarditis; I44.0 Atrioventricular block, first degree; I25.10 Atherosclerotic heart disease of native coronary artery without angina pectoris
CPT/HCPCS: 93225; 93227; 93306

== ENCOUNTER 2025-08-10 01:47 | Emergency (ER) | payer MEDICARE, MEDICAID, SELFPAY ==
--- OUTSIDE RECORDS SUMMARY | 2025-06-12 10:37 | XMS_ITS | Encounter Summary ---
Author Organization [facility] Address [facility] [place] [address] Care Team Providers Care District Adviser Name Role Phone Maile Valles RN Unavailable Unavail able Estephania SharifD Unavailable Christine Edgar Tolentino MD Primary Care Provider [phone] Khari Lema MD Unavailable [phone] Source Comments This information has been disclosed [...] release of HIV test results or diagnoses. [id number] Reason for Referral * Support Services (Routine) - No Authorization Required Specialty Diagnoses / Procedures Referred By Contac t Referred To Contact Cardiac Rehabilitation Diagnoses H/O heart artery stent Charlie Barnett MD [address] [place] [address] Phone: tel: fax: Referral ID Status Reason Start Date Expiration Date Visits Requested Visits Authorized [id number] No Authorization Required 5 12/09/2025 1 1 Scheduling Instructions For appointments, please call: [facility] [phone] [facility]: call [phone] Reason for Visit * Auth/Cert (Routine) Specialty Diagnoses / Procedures Referred By Contac t Referred To Contact Cardiology Diagnoses pre op renal trasnplant Procedures R[facility] Cardiac Polymer Specialist [address] [place] [address] Phone: tel: Referral ID Status Reason Start Date Expiration Date Visits Re quested Visits Authorized [id number] 1 1 Encounter Details Date Type Department Care Team (Latest Contact Info) Description 06/12/2025 11:37 AM EDT - 06/13/2025 9:45 AM EDT Hospital Encounter [facility] CVR [address] [place] [address] Cuong Dobson MD [address] [place] [address] [place] [address] H/O heart artery stent (Primary Dx); Essential (primary) hypertension; Type 2 diabetes 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, with long-term current use of insulin ([facility]); ESRD (end stage renal disease) on dialysis ([facility]); Pre-transplant evaluation for kidney transplant; High risk surgery, pre-operative cardiovascular examination Discharge Disposition: Home or Self Care WITHOUT Home Care Services Social History Tobacco Use Types Packs/Day Years Used Date Smoking Tobacco: Never Smokeless Tobacco: Never Alcohol Use Standard Drinks/Week Comments Never 0 (1 standard drink = 0.6 oz pur e alcohol) [facility] Utilities Answer Date Recorded In the past 12 months has [email or web address], gas, oil, or water [employer] threatened to shut off services in your home? No 06/12/2025 AUDIT-C Answer Date Recorded Q1: How often [...] the money to buy more. Never true 06/12/20 25 Within the past 12 months, t he food you bought just didn't last and you didn't have money to get more. Never true 06/12/2025 PRAPARE - Transportation Answer Date Re corded In the past 12 months, has l ack of transportation kept you from medical appointments or from getting medications? No 05/16 In the past 12 months, has l ack of transportation kept you from meetings, work, or from getting things needed for daily living? No 06/12/2025 Housing Stability Vital Sign Answer Gilbert e [...] the mortgage or rent on time? No 06/12/2025 In the past 12 months, how m any times have you moved where you were living? 0 06/12/2025 At any time in the past 12 m [facility], were you homeless or living in a halfway (including now)? No 06/12/2025 Yearly Questionnaire Answer Date Record ed Do [...] Sign Reading Time Taken Comments Blood Pressure 108/85 06/13/2025 8:00 AM EDT Pulse 99 06/13/2025 8:00 AM EDT Temperature 36.7 C (98.1 F) 06/12/2025 12:32 PM EDT Respiratory Rate 20 06/13/2025 8:00 AM EDT Oxygen Saturation 95% 06/13/2025 8:00 AM EDT Inhaled Oxygen Concentration 95% 06/13/2025 8 :00 AM EDT Weight 127.6 kg (281 lb 6.4 oz) 025 12:01 PM EDT Height 175.3 cm (5' 9 ) 06/12/2025 12:0 1 PM EDT Body Mass Index 41.56 06/12/2025 12:01 PM EDT documented in this encounter Functional Status * Pain Score Answer Date of Assessment Author 5 06/13/2025 3:11 AM EDT Harish Curtis RN * ROLAND Question Answer Date of Assessment Author ROLAND (ANDRESL) X 06/13/2025 8:00 AM EDT Christian Bauer RN R Eye Intact 06/12/2025 12:32 PM EDT Kaycee Webb RN L Eye Intact 06/12/2025 12:32 PM EDT Kaycee Webb RN R Ear Hearing aid 06/13/2025 8:00 AM EDT Christian Bauer RN L Ear Hearing aid 06/13/2025 8:00 AM EDT Christian Bauer RN Throat Intact 06/12/2025 12:32 PM EDT Kaycee Webb RN Teeth Intact 06/12/2025 12:32 PM EDT Kaycee Webb RN Lips Symmetrical 06/12/2025 10:00 PM EDT Kaycee Valdivia RN * Weight in kg Answer Date of Assessment Author 127.64 06/12/2025 12:01 PM EDT Harish Wood RN * Height in cm Answer Date of Assessment Author 175.3 06/12/2025 12:01 PM EDT Harish Wood RN * Pre-Op Check List Question Answer Date of Assessment Author Beta Blockers Given? No 06/12/2025 12:31 PM EDT Kaycee Wood RN Scrubbing with Antibacterial Soap No 025 12:31 PM EDT Kaycee Wood RN Family Waiting? Yes 06/12/2025 12:31 PM EDT Kaycee Galindo RN Pre-Op Antibiotics Given? No 06/12/2025 12:3 1 PM EDT Kaycee Wood RN Cardiac rhythm assessed? Yes 06/12/2025 12:31 PM EDT Kaycee Wood RN Patient on Anti-coagulation? No 06/12/2025 1 2:31 PM EDT Kaycee Wood RN * RLE Neurovascular Assessment Question Answer Date of Assessment Author Capillary Refill Less than/equal to 3 seconds 06/13/2025 8:00 AM EDT Christian Bauer RN Color Appropriate for ethnicity 06/13/2025 8:00 AM EDT Christian Bauer RN Temperature/Moisture Warm;Dry 06/13/2025 8:00 AM E DT Christian Bauer RN R Posterior Tibial Pulse +1 06/13/2025 8:00 AM EDT Christian Bauer R N R Pedal Pulse +2 06/13/2025 8:00 AM EDT Christian Yao RN * LLE Neurovascular Assessment Question Answer Date of Assessment Author Capillary Refill Less than/equal to 3 seconds 06/13/2025 8:00 AM EDT Christian Bauer RN Color Appropriate for ethnicity 06/13/2025 8:00 AM EDT Christian Bauer RN Temperature/Moisture Warm;Dry 06/13/2025 8:00 AM E DT Christian Bauer RN L Posterior Tibial Pulse +1 06/13/2025 8:00 AM EDT Christian Bauer, Miguel N L Pedal Pulse +2 06/13/2025 8:00 AM EDT Christian Yao RN * Jovanni Score Question Answer Date of Assessment Author Oxygenation 2 06/13/2025 8:00 AM EDT Christian Bauer RN Activity 2 06/13/2025 8:00 AM EDT Christian Bauer RN Circulation 2 06/13/2025 8:00 AM EDT Christian Bauer RN Respiration 2 06/13/2025 8:00 AM EDT Christian Bauer RN Consciousness 2 06/13/2025 8:00 AM EDT Christian Yao RN Jovanni Score 10 06/13/2025 8:00 AM EDT Christian Yao RN * RUE Neurovascular Assessment Question Answer Date of Assessment Author Capillary Refill Less than/equal to 3 seconds 06/13/2025 8:00 AM EDT Christian Bauer RN Color Appropriate for ethnicity 06/13/2025 8:00 AM EDT Christian Bauer RN Temperature/Moisture Warm;Dry 06/13/2025 8:00 AM E DT Christian Bauer RN R Radial Pulse +2 06/13/2025 8:00 AM EDT Christian Kohler RN * LUE Neurovascular Assessment Question Answer Date of Assessment Author Capillary Refill Less than/equal to 3 seconds 06/13/2025 8:00 AM EDT Christian Bauer RN Color Appropriate for ethnicity 06/13/2025 8:00 AM EDT Christian Bauer RN Temperature/Moisture Warm;Dry 06/13/2025 8:00 AM E DT Christian Bauer RN L Radial Pulse +2 06/13/2025 8:00 AM EDT Christian Kohler RN * Vitals Question Answer Date of Assessment Author BP 108/85 06/13/2025 8:00 AM EDT Christian Bauer RN Pulse 99 06/13/2025 8:00 AM EDT Christian Bauer RN Cardiac Rhythm SR 06/13/2025 8:00 AM EDT Christian Kohler RN Heart 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 No 12:31 PM EDT Kaycee Wood RN * Jovanni Score Answer Date of Assessment Author 10 06/13/2025 8:00 AM EDT Luma Bauer RN * [place] Coma Scale Question Answer Date of Assessment Author Eye Opening 4 06/13/2025 8:00 AM EDT Christian Bauer RN Best Motor Response 6 06/13/2025 8:00 AM ED T Christian Bauer RN Best Verbal Response 5 06/13/2025 8:00 AM E Christian Huertas RN Marcio Coma Scale Score 15 06/13/2025 8:00 AM BANDART Christian Bauer RN * Assessment Information Question Answer Date of Assessment Author Assessment Information Shift Assessment 06/13/2025 8:0 0 AM BANDART Christian Bauer RN * Screening Criteria Question Answer Date of Assessment Author Patient must have a family/f riend support for a ride home with reliable transportation. Yes 06/12/2025 12:38 PM BANDART Lisandra Wood RN Family/friend must stay with patient for first 24 hours after procedure. Yes 06/12/2025 12:38 PM Kaycee Meléndez RN Patient must have a working home or cell phone. Yes 06/12/2025 12:38 PM Kaycee Meléndez RN Patient must live within [place] of a hospital. Yes 06/12/2025 12:38 PM Hoa Meléndez RN Patient must have access to emergency medical care. Yes 06/12/2025 12:38 PM Yari Meléndez RN Patient can be pre-treated w ith aspirin and/or clopidogrel. Yes 06/12/2025 12:38 PM BANDART Harish Wood RN Patient must be able to obta in/pay for medications. Yes 06/12/2025 12:38 PM Kaycee Meléndez RN For an ICD/Pacemaker, Is the patient on a blood thinner or an anticoagulant? N/A 06/12/2025 12:38 PM Kaycee Meléndez RN * IV Assessment Information Question Answer Date of Assessment Author IV Assessment Information Shift Assessment 06/13/2025 8:00 AM EDT Christian Bauer RN * Wound Assessment Information Question Answer Date of Assessment Author Wound Assessment Information Shift Assessment 06/12/2025 10:00 PM EDT Kaycee Curtis RN * Body Composition Question Answer Date of Assessment Author Weight Change (lbs) 0 06/12/2025 12:01 PM E Kaycee Crockett RN * Assessment Information Question Answer Date of Assessment Author Assessment Information Shift Assessment 06/13/2025 8:0 0 AM EDT Christian Bauer RN * Total Workload Score Answer Date of Assessment Author 47.96 06/13/2025 9:15 AM EDT Rosangela Womack * Garnica Question Answer Date of Assessment Author Garnica Score 2 06/13/2025 8:00 AM EDT Christian Bauer RN * P.O. Intake Question Answer Date of Assessment Author P.O. 120 06/12/2025 8:56 PM EDT Kaycee Wood RN Percent Meals Eaten (%) 100 06/12/2025 8:56 PM EDT Kaycee Wood R N Diet Type Oral diet as ordered 06/12/2025 8:56 PM E Kaycee Crockett RN Feeding Able to feed self 06/12/2025 8:56 PM Kaycee Meléndez RN Appetite Good 06/12/2025 8:56 PM BANDART Kaycee Wood RN * Cut/Discarded Clothing Question Answer Date of Assessment Author Cut/Discarded Clothing None 06/12/2025 1:31 PM EDT Kaycee Wood RN * Sepsis Risk Score Question Answer Date of Assessment Author [facility] Sepsis Risk Score 3.1 06/13/2025 9:30 AM E Rosangela Lopez * Anthropometrics Question Answer Date of Assessment Author BMI (Calculated) 41.54 06/12/2025 12:01 PM Kaycee Meléndez RN * Height Percent Change Answer Date of Assessment Author 0 06/12/2025 12:01 PM EDT Harish Wood RN * HIDDEN-Infusion Dashboard Answer Date of Assessment Author 108 06/13/2025 8:00 AM EDT Luma Bauer RN * Diabetes Survey Questions Question Answer Date of Assessment Author Do you have Diabetes? Yes 06/12/2025 7:45 PM EDT Kaycee Wood RN How do you rate your underst anding of Diabetes? Good 06/12/2025 7:45 PM EDT Kaycee Wodo R N * Fall Risk Question Answer Date of Assessment Author Fall Risk Precautions In Place [place] 06/13/2025 8:00 AM EDT Christian Bauer RN * Jewelry Question Answer Date of Assessment Author Jewelry None 06/12/2025 1:31 PM EDT Kaycee Wood RN * Vital Signs Question Answer Date of Assessment Author Temp 98.1 06/12/2025 12:32 PM EDT Kaycee Webb RN * Oxygen Therapy Question Answer Date of Assessment Author SpO2 95 06/13/2025 8:00 AM EDT Christian Bauer RN O2 Device None (Room air) 06/13/2025 8:00 AM EDT Mccarty Christian larose RN Pulse Oximetry Type Continuous 06/12/2025 9:45 PM ED T Kaycee Wood RN * Height and Weight Question Answer Date of Assessment Author Height 69 06/12/2025 12:01 PM EDT Kaycee Webb RN Weight 4502.4 06/12/2025 12:01 PM EDT Kaycee Webb RN BSA (Calculated - sq m) 2.49 06/12/2025 12:01 PM EDT Kaycee Wood RN * Vitals Question Answer Date of Assessment Author Heart Rate Source Monitor 06/13/2025 8:00 AM EDT Christian Bauer RN * Neurological Question Answer Date of Assessment Author Level of Consciousness Alert 06/13/2025 8:00 AM EDT Christian Bauer RN Orientation Level Oriented X4 06/13/2025 8:00 AM EDT Christian Bauer RN Neuro (WDL) WDL 06/13/2025 8:00 AM EDT Christian Bauer RN Neuro Symptoms None 06/13/2025 8:00 AM EDT Christian Kohler RN * Respiratory Question Answer Date of Assessment Author Respiratory (WDL) X 06/13/2025 8:00 AM EDT Christian Bauer RN Bilateral Breath Sounds Clear;Diminished 06/13/2025 8: 00 AM EDT Christian Bauer RN Respiratory Pattern Regular;Easy;Unlabored 06/13/2025 8:00 AM EDT Christian Bauer RN Chest Assessment Chest expansion symmetrical 06/13/2025 8:00 AM EDT Christian Bauer RN * Cardiac Question Answer Date of Assessment Author Cardiac (WDL) X 06/13/2025 8:00 AM EDT Christian Yao RN Cardiac Regularity Regular 06/13/2025 8:00 AM EDT Christian Bauer RN Heart Sounds S1, S2 06/13/2025 8:00 AM EDT Christian Bauer RN Jugular Venous Distention (JVD) No 8:00 AM EDT Christian Bauer RN Cardiac Symptoms None 06/13/2025 8:00 AM EDT H Christian hanna RN * Gastrointestinal Question Answer Date of Assessment Author Gastrointestinal (WDL) WDL 06/13/2025 8:00 AM EDT Christian Bauer RN * Peripheral Vascular Question Answer Date of Assessment Author Compression boots No 06/13/2025 8:0 0 AM EDT Christian Bauer RN Peripheral Vascular (WDL) X 06/13/2025 8:00 AM EDT Christian Bauer RN Generalized Edema Non-pitting 06/13/2025 8:0 0 AM EDT Christian Bauer RN RLE Edema +1 06/12/2025 10:00 PM EDT Kaycee Curtis RN LLE Edema +1 06/12/2025 10:00 PM EDT Kaycee Curtis RN Capillary Refill Less than 3 seconds (All extremities) 06/13/2025 8:00 AM EDT Christian Bauer RN Pulses R radial;L radial;R posterior tibial;L posterior tibial;R pedal;L pedal 06/13/2025 8:00 AM EDT Christian Bauer RN Cyanosis None 06/13/2025 8:00 AM EDT Christian Bauer RN Edema Generalized 06/13/2025 8:00 AM EDT Christian Bauer RN PVS Additional Assessments RUE Neurovascular Assessment 06/12/2025 10:00 PM EDT Kaycee Curtis RN * Anus/Rectum Question Answer Date of Assessment Author Anus/Rectum (WDL) WDL 06/13/2025 8:00 AM EDT Christian Bauer RN * Psychosocial Question Answer Date of Assessment Author Patient Behaviors/Mood Calm;Cooperative 06/13/2025 8:0 0 AM EDT Christian Bauer RN Needs Expressed Physical 06/12/2025 10:00 PM EDT W Kaycee macdonald RN * Chery Fall Risk Question Answer Date of Assessment Author History of Falling 0 06/13/2025 8:00 AM EDT Christian Bauer RN Secondary Diagnosis 15 06/13/2025 8:00 AM ED T Christian Bauer RN Ambulatory Aids 0 06/13/2025 8:00 AM EDT Mccarty Christian larose RN Intravenous Therapy/Heparin/ Saline Lock 20 06/13/2025 8:00 AM EDT Christian Bauer R N Gait/Transferring 0 06/13/2025 8:00 AM EDT Christian Bauer RN Mental Status 0 06/13/2025 8:00 AM EDT Christian Yao RN Chery Fall Risk Score 35 06/13/2025 8:00 AM EDT Christian Bauer RN * Douglas Scale Question Answer Date of Assessment Author Sensory Perceptions 4 06/13/2025 8:00 AM ED T Christian Bauer RN Moisture 4 06/13/2025 8:00 AM EDT Christian Bauer RN Activity 4 06/13/2025 8:00 AM EDT Christian Bauer RN Mobility 4 06/13/2025 8:00 AM EDT Christian Bauer RN Nutrition 4 06/13/2025 8:00 AM EDT Christian Bauer RN Friction and Shear 3 06/13/2025 8:00 AM EDT Christian Bauer RN Douglas Scale Score 23 06/13/2025 8:00 AM EDT Christian Bauer RN * Cough Answer Date of Assessment Author Non-productive 06/12/2025 10:00 PM Kaycee Juares RN * Cardiac Question Answer Date of Assessment Author Telemetry/Potato Sorter Yes 06/12/2025 10:0 0 PM Kaycee Juares RN * Respiratory Question Answer Date of Assessment Author R Breath Sounds Clear;Diminished 06/12/2025 10:00 PM E Kaycee Palomino RN L Breath Sounds Clear;Diminished 06/12/2025 10:00 PM E Kaycee Palomino RN * Respiratory (WDL) Answer Date of Assessment Author X 06/12/2025 12:32 PM Harish Meléndez RN * Height and Weight Question Answer Date of Assessment Author Percent Weight Change Since 0 025 12:01 PM Kaycee Meléndez RN * Advance Directives (For Healthcare) Question Answer Date of Assessment Author Advance Directive Patient does not hav e advance directive 06/12/2025 8:00 PM Kaycee Meléndez RN * Discharge Planning Question Answer Date of Assessment Author Who does patient live with? Spouse/significant other 06/12/2025 7:45 PM Kaycee Meléndez RN Support Systems Spouse/significant other 06/12/2025 7:45 PM Kaycee Meléndez RN Type of Residence Private residence 06/12/2025 7 :45 PM Kaycee Meléndez RN In the past 12 months has the Field [employer], gas, oil, or water [employer] threatened to shut off services in your home? No 06/12/2025 7:45 PM Kaycee Meléndez RN In the last 12 months, was there a time when you were not able to pay the mortgage or rent on time? No 06/12/2025 7:45 PM Kaycee Meléndez RN In the past 12 months, how many times have you moved where you were living? 0 06/12/2025 7:45 PM Kaycee Meléndez RN At any time in the past 12 months, were you homeless or living in a halfway (including now)? No 06/12/2025 7:45 PM Kaycee Meléndez RN In the past 12 months, has lack of transportation kept you from medical appointments or from getting medications? No 06/12/2025 7:45 PM Kaycee Meléndez RN In the past 12 months, has lack of transportation kept you from meetings, work, or from getting things needed for daily living? No 06/12/2025 7:45 PM EDT Kaycee Wood RN * Nutrition Screen Question Answer Date of Assessment Author Diabetic Education Needed 2 06/12/2025 7:45 PM Kaycee Meléndez RN Unplanned Weight Gain in Las t Three Months 2 06/12/2025 7:45 PM Kaycee Meléndez R N Unplanned Weight Loss in Las t Three Months 2 06/12/2025 7:45 PM EDT Kaycee Wood R N Poor Oral Intake for Four or More Days Prior to Admission 2 06/12/2025 7:45 PM Harish Meléndez RN Difficulty Chewing or Swallowing 2 06/12/20 7:45 PM Kaycee Meléndez RN Pressure Ulcer or Non-Healin g Wound 2 06/12/2025 7:45 PM Kaycee Meléndez R N Home Tube Feeding or Total Parenteral Nutrition (TPN) 2 06/12/2025 7:45 PM BANDART Felisa Wood RN Dietitian Consult Needed 2 06/12/2025 7:45 PM Kaycee Meléndez RN Vomiting/Diarrhea/Nausea Gre ater Than 3 Days 2 06/12/2025 7:45 PM Kaycee Meléndez R N Within the past 12 months, y ou worried that your food would run out before you got the money to buy more. Never true 06/12/2025 7:45 PM Kaycee Meléndez R N Within the past 12 months, t he food you bought just didn't last and you didn't have money to get more. Never true 06/12/2025 7:45 PM EDT Kaycee Wood R N * Abuse/Trauma History Question Answer Date of Assessment Author Violence/Trauma Denies 06/12/2025 1:31 PM EDT Kaycee Allison RN Exploitation Denies 06/12/2025 1:31 PM EDT Kaycee Wood RN Physical Abuse Denies 06/12/2025 1:31 PM EDT Kaycee Poe RN Verbal Abuse Denies 06/12/2025 1:31 PM EDT Kaycee Wood RN Sexual Abuse No 06/12/2025 1:31 PM EDT Kaycee Wood RN Neglect Denies 06/12/2025 1:31 PM EDT Kaycee Wood RN * Values / Beliefs Question Answer Date of Assessment Author Cultural Requests During Hospitalization No 06/12/2025 1:31 PM EDT Kaycee Wood R N Spiritual Requests During Hospitalization No 06/12/2025 1:31 PM EDT Kaycee Wood R N * Genitourinary Question Answer Date of Assessment Author Genitourinary (WDL) X 06/13/2025 8:00 AM ED T Christian Bauer RN Genitourinary Symptoms Diminished urine production 06/13/2025 8:00 AM EDT Christian Bauer RN * Neurological Question Answer Date of Assessment Author Neuro (WDL) WDL 06/12/2025 10:00 PM EDT Kaycee Valdivia RN Neuro Additional Assessments [place] Coma Scale 06/12/2025 10:00 PM EDT Kaycee Curtis RN * Cell Phone Question Answer Date of Assessment Author Cell Phone One 06/12/2025 1:31 PM EDT Kaycee Wood RN * Electronics Question Answer Date of Assessment Author Electronics None 06/12/2025 1:31 PM EDT Kaycee Wood RN * Personal Items Question Answer Date of Assessment Author Personal Items None 06/12/2025 1:31 PM EDT Kaycee Poe RN * Medical Personal Items Question Answer Date of Assessment Author Medical Personal Items Hearing Aids 06/12/2025 1:31 PM EDT Kaycee Wood RN Hearing Aids Right;Left 06/12/2025 1:31 PM EDT Kaycee Wood RN * Clothing Question Answer Date of Assessment Author Clothing Shoes;Socks;Undergar ments;Shirt;Pa nts 06/12/2025 1:31 PM EDT Kaycee Wood RN * Home Medications Question Answer Date of Assessment Author Home Medications No 06/12/2025 1:31 PM EDT Kaycee Galindo RN * Lock Box Receipt Question Answer Date of Assessment Author Lock Box Receipt No 06/12/2025 1:31 PM EDT Kaycee Galindo RN * Location of Belongings Question Answer Date of Assessment Author Location Of Patient Belongings Kept On The Floor 06/12/2025 1:31 PM EDT Kaycee Wood R N * Weapons Question Answer Date of Assessment Author Weapons No 06/12/2025 1:31 PM EDT Kaycee Wood RN * Patient Belongings Question Answer Date of Assessment Author Does The Patient Have Belongings Yes 06/12/20 1:31 PM EDT Kaycee Wood RN Patient Agrees to Inventory Yes 06/12/2025 1: 31 PM EDT Kaycee Wood RN * Safe Environment Question Answer Date of Assessment Author Safety Equipment at Bedside Ambu bag/mask;Suction 06/13/2025 8:00 AM EDT Christian Bauer RN * Mobility Question Answer Date of Assessment Author Activity Lying in bed 06/13/2025 8:00 AM EDT Christian Bauer RN Assistive Device None 06/13/2025 8:00 AM EDT H Christian hanna RN Level of Assistance Independent 06/13/2025 8:00 AM ED T Christian Bauer RN Head of Bed Self regulated 06/13/2025 8:00 AM EDT Christian Kohler RN * Precautions Question Answer Date of Assessment Author Precautions Bleeding 06/13/2025 8:00 AM EDT Christian Bauer RN * Adult IBW/VT Calculations Question Answer Date of Assessment Author Low Range Vt 4 mL MALE 282.8 06/12/2025 12:01 P M Kaycee Meléndez RN Low Range Vt 4 mL FEMALE 264.8 06/12/2025 12:01 PM EDT Kaycee Wood RN IBW/kg (Calculated) Male 70.7 06/12/2025 12:01 PM EDT Kaycee Wood RN Low Range Vt 6 mL MALE 424.2 06/12/2025 12:01 P M Kaycee Meléndez RN Moderate Range Vt 8 mL MALE 565.6 06/12/2025 12 :01 PM EDT Kaycee Wood RN High Range Vt 10 mL MALE 707 06/12/2025 12:01 PM EDT Kaycee Wood RN IBW/kg (Calculated) FEMALE 66.2 06/12/2025 12: 01 PM EDT Kaycee Wood RN Low Range Vt 6 mL FEMALE 397.2 06/12/2025 12:01 PM aKycee Meléndez RN Moderate Range Vt 8 mL FEMALE 529.6 06/12/2025 12:01 PM Kaycee Meléndez RN High Range Vt 10 mL FEMALE 662 06/12/2025 12: 01 PM Kaycee Meléndez RN * ADL Screening Question Answer Date of Assessment Author Is this person blind or does he/she have serious difficulty seeing even when wearing glasses? No 06/12/2025 7:45 PM Kaycee Meléndez R N Is this person deaf or does he/she have serious difficulty hearing? No 06/12/2025 7:45 PM Kaycee Meléndez R N Does this person have seriou s difficulty walking or climbing stairs? (5 years old or older) No 06/12/2025 7:45 PM Kaycee Meléndez RN Does this person have difficulty dressing or bathing? (5 years old or older) No 06/12/2025 7:45 PM Kaycee Meléndez RN Because of a physical, menta l, or emotional condition, do you have serious difficulty concentrating, remembering, or making decisions? (5 years old or older No 06/12/2025 7:45 PM Kaycee Meléndez R N Because of a physical, menta l, or emotional condition, do you have difficulty doing errands alone such as visiting a doctor's office or shopping? (15 years old or older) No 06/12/2025 7:45 PM Hoa Meléndez RN Is this person able to expre ss their needs and desires? Yes 06/12/2025 7:45 PM Yari Meléndez RN Dressing Independent 06/12/2025 7:45 PM Kaycee Meléndez RN Grooming Independent 06/12/2025 7:45 PM Kaycee Meléndez RN Feeding Independent 06/12/2025 7:45 PM Kaycee Meléndez RN Bathing Independent 06/12/2025 7:45 PM Kaycee Meléndez RN Toileting Independent 06/12/2025 7:45 PM Kaycee Meléndez RN In/Out Bed Independent 06/12/2025 7:45 PM Kaycee Meléndez RN Walks in Home Independent 06/12/2025 7:45 PM EDT Kaycee Webb RN Weakness of Legs None 06/12/2025 7:45 PM EDT Kaycee Galindo RN Weakness of Arms/Hands None 06/12/2025 7:45 PM Kaycee Meléndez RN Hearing - Right Ear Hearing aid 06/12/2025 7:45 PM ED Kaycee Blanco RN Hearing - Left Ear Hearing aid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 16.4min. Total time: 16.4min. Total air KERMA: 1129mGy. CORONARY ARTERIES: The coronary circulation is right dominant. Left main: The left main is normal. LAD: Mid-vessel stenosis: The diagnostic study demonstrated an 80%stenosis. There is ASHA grade 3 flow (brisk flow) across the lesion. Stent placement was performed, resulting in an excellent angiographic appearance (see 1st lesion). Following intervention, there is a residual 0% stenosis with ASHA grade 3 flow (brisk flow). There were no site complications. LAD is a large vessel that reaches the apex and wraps it. It gives rise into 2 diagonal branches Mid LAD has 70% stenosis Diagonal branches are patent Left circumflex: LCx is a large vessel that gives rise into 2 OM branches. LCx has 20% stenosis OM branches are angiographically normal Right coronary: RCA is a large vessel and has minimal luminal irregularities without significant stenosis Hemodynamics: Circulatory function: + + + !Stage description !Condition 1 - ! + + + !LV pressure s/d, ed !119/10, 18, dP/ow=1628um Hg/s! + + + !Aortic pressure s/d (m)!109/31 (69) ! + + + SUMMARY: 1. LAD: Mid-vessel stenosis: The diagnostic study demonstrated an 80%stenosis. Stent placement was performed, resulting in an excellent angiographic appearance (see 1st lesion). Following intervention, there is a residual 0% stenosis with ASHA grade 3 flow (brisk flow). 2. Dr. Dobson was present during the procedure. was the primary author of this report Prepared and electronically signed by Cuong Dobson MD [id number] Procedure Note Cuong Dobson MD - 06/15/2025 *[facility]* Cardiac Polymer Specialist [address] [place] [address] CATHETERIZATION LAB STUDY Patient: Aiden Stauffer Age: 50 Study 06/12/2025 W Date: Patient [id number] Gender: M Study 04:38:52PM ID: Time: : 1975 HT/WT: 175.3cm / 127.6kg Performing Physician: Cuong Dobson MD Ordering Physician: Lianet Mayen Fellow: MD Yomi Ramirez Said Procedures performed: - Left heart catheterization. - Right coronary angiography. - Left coronary angiography. - Percutaneous intervention on the 80% stenosis in the mid LAD. Balloon angioplasty. Stent placement. 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 Mitral valve vegetatioin (I33.0). PROCEDURE IN DETAIL: Study status: Cardiac cath: urgent. Consent:The risks, benefits, and alternatives to the procedure and sedation were explained to the patient and informed consent was obtained.Location: Catheterization laboratory. PROCEDURE: 1. Initial setup. The patient was brought to the laboratory in afasting state. Surface ECG leads, blood pressure measurements, and pulse oximetric signals were monitored. 2. Skin preparation. The planned puncture sites were prepped and drapedin the usual sterile manner. 3. Right radial artery access. A [id number] Glidesheath - Slender - .021 sheath was advanced into the vessel. 4. Supplemental oxygen, 2L/min was administered throughout theprocedure. 5. Left heart catheterization was performed. The catheter was advanced across the aortic valve under fluoroscopic guidance. 6. Selective right coronary angiography was performed. A 6f JR 4catheter was introduced. Contrast was injected. Images were obtained using multiple projections. 7. The catheter was exchanged. 8. Selective left coronary angiography was performed. Contrast was injected. Images were obtained using multiple projections. 9. A stent was placed in the stenosis in the mid LAD. See detailed description below (1st lesion intervention). 10. Right radial artery hemostasis was obtained. The sheath was removed. Vessel closure was achieved with a REG TR Band Reg device. 1st lesion: Percutaneous intervention on the 80% stenosis in the mid LAD. 1. A [id number] Pressure Wire X wire was placed. 2. Balloon angioplasty was performed. A 3mm (D) x 15mm (L), Balloon, NC Euphora balloon was employed. The balloon was placed across thelesion and given two inflations with a maximum inflation pressure of 15atm. 3. A .[id number] Runthrough NS extra floppy wire was placed. 4. Stent placement was performed. A 3.5mm (D) x 32mm (L), Stent, Synergy MEGATRON stent was used. The stent was advanced across the lesion and deployed with a single inflation and a maximum pressure of 15atm. STUDY COMPLETION: The patient tolerated the procedure well. There wereno complications. Contrast: Omnipaque 350 150ml (total dose). [id number] 50ml (wasted). Radiation: Fluoroscopy time: 16.4min. Total time:16.4min. Total air KERMA: 1129mGy. CORONARY ARTERIES: The coronary circulation is right dominant. Left main: The left main is normal. LAD: Mid-vessel stenosis: The diagnostic study demonstrated an80%stenosis. There is ASHA grade 3 flow (brisk flow) across the lesion. Stent placement was performed, resulting in an excellent angiographicappearance (see 1st lesion). Following intervention, there is a residual 0%stenosis with ASHA grade 3 flow (brisk flow). There were no site complications.LAD is a large vessel that reaches the apex and wraps it. It gives rise into2 diagonal branches Mid LAD has 70% stenosis Diagonal branches are patent Left circumflex: LCx is a large vessel that gives rise into 2 OMbranches. LCx has 20% stenosis OM branches are angiographically normal Right coronary: RCA is a large vessel and has minimal luminalirregularities without significant stenosis Hemodynamics: Circulatory function: + + + !Stage description !Condition 1 - ! + + + !LV pressure s/d, ed !119/10, 18, dP/wd=1165kk Hg/s! + + + !Aortic pressure s/d (m)!109/31 (69) ! + + + SUMMARY: 1. LAD: Mid-vessel stenosis: The diagnostic study demonstrated an 80%stenosis. Stent placement was performed, resulting in an excellent angiographic appearance (see 1st lesion). Following intervention,there is a residual 0% stenosis with ASHA grade 3 flow (brisk flow). 2. Dr. Dobson was present during the procedure. was theprimary author of this report Prepared and electronically signed by Cuong Dobson MD [id number]:22 Lianet Mayen [facility] [id number] Final Result [facility] * POC Activated Clotting Time Low Range (06/12/2025 5:51 PM EDT) Activated Clotting Time, Low Range POC (4) OUT OF RANGE HI 113 - 149 seconds 06/13/2025 5:47 AM EDT [facility] Comment: ACT LOW RANGE TARGET RANGES: Line pull Less than 190 or 2 consecutive readings at least 15 min apart of less than 200 seconds Interventional cardiology with GP IIb/IIIa inhibitors 220 - 300 seconds Interventional cardiology without GP IIb/IIIa inhibitors Greater than 250 seconds Off-pump coronary artery bypass Do not use Coronary artery bypass (on pump) Do not use Bypass with aprotinin Do not use Coronary artery bypass reversal N/A Peripheral and Neuroradiology Up to 400 seconds Target ranges are suggested ranges only. Suggested ranges are overridden by specific physician order. Blood 06/12/2025 5:51 PM EDT 06/13/2025 5:47 AM EDT Cuong Dobson MD POINT OF CARE TEST ORDERABLES F inal Result [facility] [address] [place] [address], [facility] * (ABNORMAL) Basic metabolic panel (06/12/2025 1:06 PM EDT) Sodium 136 133 - 146 mmol/L 06/12/2025 2:07 PM EDT [facility] Potassium 5.2 3.5 - 5.3 mmol/L 06/12/2025 2:07 PM EDT [facility] Comment:Hemolysis Present: R esults may be influenced artificially. Recommend recollection as clinically indicated. Chloride 102 98 - 110 mmol/L 06/12/2025 2:07 PM EDT [facility] CO2 23 21 - 33 mmol/L 06/12/2025 2:07 PM EDT [facility] Comment:High lactate dehydro genase concentrations in patient samples may cause falsely increased bicarbonate results. If markedly elevated LDH is observed or suspected, please assess results in conjunction with patient`s clinical presentation. In cases of discrepant results, consider evaluating CO2 in with a blood gas order. Anion Gap 11 3 - 16 mmol/L 06/12/2025 2:07 PM EDT [facility] BUN 40(H) 7 - 25 mg/dL 06/12/2025 2:07 PM EDT [facility] Creatinine 7.61(H) 0.60 - 1.30 mg/dL 06/12/2025 2:07 PM EDT [facility] Glucose 123(H) 70 - 100 mg/dL 06/12/2025 2:07 PM EDT [facility] Calcium 8.5(L) 8.6 - 10.3 mg/dL 06/12/2025 2:07 PM EDT [facility] Osmolality, Calculated 293 278 - 305 mOsm/kg 06/12/2025 2:07 PM EDT [facility] EGFR 8 06/12/2025 2:07 PM EDT [facility] Comment:As of 2021, the estimated [...] Disease. Am J Kidney Dis. 2020. Plasma 06/12/2025 1:06 PM EDT 06/12/2025 1:21 PM EDT Narrative [facility] - 06/12/2025 2:07 PM EDT If not done within 14 days or previous BMP results were abnormal us Kim Banerjee [employer] LAB BLOOD ORDERABLES Final Resul t [facility] [address] [place] [address], [facility] * (ABNORMAL) CBC (06/12/2025 1:06 PM EDT) WBC 4.5 3.8 - 10.8 10E3/uL 06/12/2025 1:34 PM EDT [facility] RBC 4.51 4.20 - 5.80 10E6/uL 06/12/2025 1:34 PM EDT [facility] Hemoglobin 14.1 13.2 - 17.1 g/dL 06/12/2025 1:34 PM EDT [facility] Hematocrit 43.7 38.5 - 50.0 % 06/12/2025 1:34 PM EDT [facility] MCV 97.0 80.0 - 100.0 fL 06/12/2025 1:34 PM EDT [facility] MCH 31.4 27.0 - 33.0 pg 06/12/2025 1:34 PM EDT [facility] MCHC 32.3 32.0 - 36.0 g/dL 06/12/2025 1:34 PM EDT [facility] RDW 17.7(H) 11.0 - 15.0 % 06/12/2025 1:34 PM EDT [facility] Platelets 213 140 - 400 10E3/uL 06/12/2025 1:34 PM EDT [facility] MPV 7.6 7.5 - 11.5 fL 06/12/2025 1:34 PM EDT [facility] Whole Blood 06/12/2025 1:06 PM EDT 06/12/2025 1:21 PM EDT Narrative [facility] - 06/12/2025 1:34 PM EDT If not done within 14 days or if previous CBC results were abnormal us Kim Banerjee CNP LAB BLOOD ORDERABLES Final Resul t [facility] [address] [place] [address], [facility] * ECG 12 lead (MUSE) (06/12/2025 12:25 PM EDT) 06/12/2025 12:2 5 PM EDT Narrative MUSE - 06/14/2025 12:08 AM EDT Ventricular Rate: 96 BPM Atrial Rate: 96 BPM P-R Interval: 250 ms QRS Duration: 102 ms QT: 360 ms QTc: 454 ms P Cora: 49 degrees R Cora: 54 degrees T Cora: 120 degrees Diagnosis Line: SINUS RHYTHM WITH 1ST DEGREE A-V BLOCK ^ CANNOT RULE OUT INFERIOR INFARCT , AGE UNDETERMINED ^ ABNORMAL ECG ^ ^ Confirmed by MD KELLER JULIANE ([id number]) on 06/14/2025 12:08:50 AM us Kim Banerjee [facility] ECG ORDERABLES Final Result Performing Organization Address City/[facility] Co de Phone Number MUSE * Protime-INR (06/12/2025 12:08 PM EDT) Protime 13.1 12.1 - 15.1 seconds 06/12/2025 1:00 PM EDT [facility] INR 0.9 0.9 - 1.1 06/12/2025 1:00 PM EDT [facility] Comment: RECOMMENDED THERAPEUTIC RANGES USING INR : Stable oral anticoagulant therapy: 2.0 - 3.0 Mechanical prosthetic heart valve: 2.5 - 3.5 Recurrent acute myocardial infarction: 2.5 - 3.5 Plasma 06/12/2025 12:0 8 PM EDT 06/12/2025 12:48 PM EDT Narrative [facility] - 06/12/2025 1:00 PM EDT If not done within 14 days or preform day of procedure for any patients with liver issues or on Coumadin us Kim Banerjee [employer] LAB BLOOD ORDERABLES Final Resul t [facility] [address] [place] [address], [facility] * Cardiac Cath Documents Scan (06/12/2025 5:58 AM EDT) us Scanning [facility] SCAN DOCS - NO RESULTS Final Res ult documented in this encounter Visit Diagnoses Diagnosis H/O heart artery stent- Primary Essential (primary) hypertension Unspecified essential hypertension Type 2 diabetes 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, with long-term current use of insulin ([facility]) ESRD (end stage renal disease) on dialysis ([facility]) End stage renal disease Pre-transplant evaluation for kidney transplant High risk surgery, pre-operative cardiovascular examination Pre-operative cardiovascular examination Essential (primary) hypertension Unspecified essential hypertension Type 2 diabetes 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, with long-term current use of insulin ([facility]) ESRD (end stage renal disease) on dialysis ([facility]) End stage renal disease Pre-transplant evaluation for kidney transplant High risk surgery, pre-operative cardiovascular examination Pre-operative cardiovascular examination documented in this encounter Administered Medications Inactive Administered Medications - up to 3 most recent administrations Medication Order MAR Action Action Date Dose Rate Site ALPRAZolam (XANAX) tablet 0.5 mg 0.5 mg, Oral, Nightly PRN, Sleep, Starting on Mon06/12/25 at 1825 Given 06/12/2025 11:00 PM EDT 0.5 mg aspirin chewable tablet 243 mg 243 mg, Oral, Once, On Mon06/12/25 at 1200, For 1 dose, If patient took 81 mg day of procedure, give 243 mg Aspirin. Administer prior to procedure., Pre-Procedure(Invasive Cardiology) Given 06/12/2025 12:33 PM EDT 243 mg aspirin EC tablet 81 mg 81 mg, Oral, Daily, First dose (after last modification) on Mon06/13/25 at 0830, DO NOT CRUSH OR CHEW Given 06/13/2025 8:50 AM EDT 81 mg calcium carbonate (OS-NI) tablet 1250 mg (500 mg elemental calcium) 1,250 mg, Oral, 3 times daily, First dose on Bobbi 06/12/25 at 2100, 1250 mg of calcium carbonate = 500mg elemental calcium. TAKE WITH FOOD Given 06/12/2025 10:54 PM EDT 1,250 mg calcium carbonate (OS-NI) tablet 1250 mg (500 mg elemental calcium) 1,250 mg, Oral, 3 times daily, First dose (after last modification) on Mon06/13/25 at 0830, 1250 mg of calcium carbonate = 500mg elemental calcium. TAKE WITH FOOD carBAMazepine (TEGRETOL) tablet 200 mg 200 mg, Oral, 2 times daily, First dose (after last reorder) on Mon06/12/25 at 2100 Given 06/12/2025 10:53 PM EDT 200 mg carBAMazepine (TEGRETOL) tablet 200 mg 200 mg, Oral, 2 times daily, First dose (after last modification) on Mon06/13/25 at 0830 Given 06/13/2025 8:50 AM EDT 200 mg cholecalciferol (vitamin D3) capsule 50,000 Units 50,000 Units, Oral, Every ,Sat in Dialysis (Once per day on Monday), First dose on Mon06/14/25 at 0900 cycloSPORINE modified (NEORAL/GENGRAF) capsule 100 mg 100 mg, Oral, Daily, First dose (after last modification) on Mon06/13/25 at 0830, LEVEL 2 HAZARDOUS MEDICATIONIndications:Preventio n of Liver Transplant Rejection Given 06/13/2025 8:49 AM EDT 100 mg cycloSPORINE modified (NEORAL/GENGRAF) capsule 125 mg 125 mg, Oral, At Bedtime (2099), First dose on Mon06/12/25 at 2100, LEVEL 2 HAZARDOUS MEDICATIONIndications:Preventio n of Liver Transplant Rejection Given 06/12/2025 10:54 PM EDT 125 mg cycloSPORINE modified (NEORAL/GENGRAF) capsule 125 mg 125 mg, Oral, At Bedtime (2099), First dose (after last modification) on Mon06/13/25 at 2300, LEVEL 2 HAZARDOUS MEDICATIONIndications:Preventio n of Liver Transplant Rejection dextrose 10%-water (D10W) IV soln 12.5 g, Intravenous, Every 15 min PRN, Low blood sugar, for glucose < 70 and alert but can not be corrected, orally or via feeding tube, Starting on Mon06/12/25 at 1827, Recheck blood sugar in 15 minutes and repeat treatment if glucose still < 70. For Smart Pump: Set volume to be infused; 125 ml for 12.5 grams or 250 mL for 25 grams. dextrose 10%-water (D10W) IV soln 25 g, Intravenous, Every 15 min PRN, Low blood sugar, for glucose < 70 and not alert, Starting on Bobbi 06/12/25 at 1827, Recheck glucose in 15 minutes and repeat treatment if glucose still < 70. For Smart Pump: Set volume to be infused; 125 ml for 12.5 grams or 250 mL for 25 grams. doxazosin (CARDURA) tablet 8 mg 8 mg, Oral, At Bedtime (2100), First dose on Bobbi 06/12/25 at 2100 Given 06/12/2025 10:54 PM EDT 8 mg entecavir (BARACLUDE) tablet 0.5 mg 0.5 mg, Oral, Every 7 days, First dose on Bobbi 06/12/25 at 2100, ADMINISTER ON EMPTY STOMACH (2 HOURS BEFORE OR AFTER MEALS). LEVEL 2 HAZARDOUS MEDICATION Given 06/12/2025 10:53 PM EDT 0.5 mg fenofibrate tablet 160 mg 160 mg, Oral, Daily, First dose on Mon06/13/25 at 0900, Therapeutic Interchange: fenofibrate, micronized (LOFIBRA) 134 mg capsule daily = fenofibrate (TRICOR) 160 mg tablet daily Given 06/13/2025 8:50 AM EDT 160 mg folic acid (FOLVITE) tablet 1 mg 1 mg, Oral, Daily, First dose (after last modification) on Mon06/13/25 at 0830 Given 06/13/2025 8:50 AM EDT 1 mg hydrALAZINE (APRESOLINE) tablet 100 mg 100 mg, Oral, Every 8 hours, First dose on Bobbi 06/12/25 at 2100 Given 06/13/2025 6:19 AM EDT 100 mg Given 06/12/2025 8:30 PM EDT 100 mg HYDROmorphone (DILAUDID) injection Syrg 0.5 mg 0.5 mg, Intravenous, Once, On Bobbi 06/12/25 at 2330, For 1 dose, If on IV and PO pain medications, use IV if patient cannot tolerate oral. Given 06/12/2025 11:17 PM EDT 0.5 mg loratadine (CLARITIN) tablet 10 mg 10 mg, Oral, Daily, First dose on Mon06/13/25 at 0900, Therapeutic Interchange: fexofenadine (FRANCOIS) tablet 180 mg po DAILY = loratadine (CLARITIN) tablet 10 mg po DAILY Given 06/13/2025 8:48 AM EDT 10 mg metoprolol succinate (TOPROL-XL) 24 hr tablet 25 mg 25 mg, Oral, Daily, First dose (after last modification) on Mon06/13/25 at 0830, DO NOT CRUSH Given 06/13/2025 8:50 AM EDT 25 mg mycophenolate (CELLCEPT) capsule 250 mg 250 mg, Oral, 2 times daily, First dose on Mon06/12/25 at 2100, LEVEL 2 HAZARDOUS MEDICATION Given 06/12/2025 10:53 PM EDT 250 mg mycophenolate (CELLCEPT) capsule 250 mg 250 mg, Oral, 2 times daily, First dose (after last modification) on Mon06/13/25 at 0830, LEVEL 2 HAZARDOUS MEDICATION Given 06/13/2025 8:49 AM EDT 250 mg oxyCODONE-acetaminophen (PERCOCET) 5-325 mg per tablet 1 tablet 1 tablet, Oral, Every 8 hours PRN, severe pain (NRS 7-10) or if patient is non-communicative (CPOT 6-8), Starting on Mon06/12/25 at 2044, Maximum dose of acetaminophen is 4000 mg (4 grams) from all sources in 24 hours. Given 06/13/2025 3:11 AM EDT 1 tablet Given 06/12/2025 8:30 PM EDT 1 tablet polyethylene glycol (MIRALAX) packet 17 g 17 g, Oral, Daily, First dose on Bobbi 06/12/25 at 2200 Given 06/12/2025 11:00 PM EDT 17 g sodium chloride 0.9 % IV infusion 50 mL/hr, Intravenous, Continuous, Starting on Mon06/12/25 at 1200, Pre-Procedure(Invasive Cardiology) New Bag 06/12/2025 12:35 PM EDT 50 mL/hr 50 mL/hr ticagrelor (BRILINTA) tablet 90 mg 90 mg, Oral, 2 times daily, First dose (after last reorder) on Mon06/13/25 at 0900, If patient received a ticagrelor loading dose, next maintenance dose should start within 12 hour. Subsequent doses should be kept on a BID schedule. Given 06/13/2025 8:49 AM EDT 90 mg documented in this encounter Active and Recently Administered Medications Times are shown in EDT. Scheduled Medication Order 06/11/2025 06/12/2025 06/13/2025 aspirin chewable tablet 243 mg (COMPLETED)(Linked Group 1) 243 mg, Oral, Once, On Bobbi 06/12/25 at 1200, For 1 dose, If patient took 81 mg day of procedure, give 243 mg Aspirin. Administer prior to procedure., Pre-Procedure(Invasive Cardiology) 1233 (Given - Provider: Kaycee Wood RN) aspirin EC tablet 81 mg 81 mg, Oral, Daily, First dose (after last modification) on Mon06/13/25 at 0830, DO NOT CRUSH OR CHEW 0850 (Given - Provid er: Christian Bauer RN) calcium carbonate (OS-NI) tablet 1250 mg (500 mg elemental calcium) (CANCELED) 1,250 mg, Oral, 3 times daily, First dose on Bobbi 06/12/25 at 2100, 1250 mg of calcium carbonate = 500mg elemental calcium. TAKE WITH FOOD 2254 (Given - Provider: Skylar Jordan RN) calcium carbonate (OS-NI) tablet 1250 mg (500 mg elemental calcium) 1,250 mg, Oral, 3 times daily, First dose (after last modification) on Mon06/13/25 at 0830, 1250 mg of calcium carbonate = 500mg elemental calcium. TAKE WITH FOOD 0852 (Not Given - Provider: Christian Bauer RN - Reason: Patient/family refused) carBAMazepine (TEGRETOL) tablet 200 mg (CANCELED) 200 mg, Oral, 2 times daily, First dose (after last reorder) on Bobbi 06/12/25 at 2100 2253 (Given - Provider: Skylar Jordan RN) carBAMazepine (TEGRETOL) tablet 200 mg 200 mg, Oral, 2 times daily, First dose (after last modification) on Mon06/13/25 at 0830 0850 (Given - Provid er: Christian Bauer RN) cholecalciferol (vitamin D3) capsule 50,000 Units 50,000 Units, Oral, Every Mon,Mon,Sat in Dialysis (Once per day on Monday), First dose on Mon06/14/25 at 0900 cycloSPORINE modified (NEORAL/GENGRAF) capsule 100 mg(Linked Group 2) 100 mg, Oral, Daily, First dose (after last modification) on Mon06/13/25 at 0830, LEVEL 2 HAZARDOUS MEDICATION 0849 (Given - Provid er: Christian Bauer RN) cycloSPORINE modified (NEORAL/GENGRAF) capsule 125 mg (CANCELED) 125 mg, Oral, At Bedtime (2100), First dose on Mon06/12/25 at 2100, LEVEL 2 HAZARDOUS MEDICATION 2254 (Given - Provider: Skylar Jordan RN) cycloSPORINE modified (NEORAL/GENGRAF) capsule 125 mg(Linked Group 2) 125 mg, Oral, At Bedtime (2100), First dose (after last modification) on Mon06/13/25 at 2300, LEVEL 2 HAZARDOUS MEDICATION doxazosin (CARDURA) tablet 8 mg 8 mg, Oral, At Bedtime (2100), First dose on Mon06/12/25 at 2100 2254 (Given - Provider: Skylar Jordan RN) entecavir (BARACLUDE) tablet 0.5 mg 0.5 mg, Oral, Every 7 days, First dose on Mon06/12/25 at 2100, ADMINISTER ON EMPTY STOMACH (2 HOURS BEFORE OR AFTER MEALS). LEVEL 2 HAZARDOUS MEDICATION 2253 (Given - Provider: Skylar Jordan RN) fenofibrate tablet 160 mg 160 mg, Oral, Daily, First dose on Mon06/13/25 at 0900, Therapeutic Interchange: fenofibrate, micronized (LOFIBRA) 134 mg capsule daily = fenofibrate (TRICOR) 160 mg tablet daily 0850 (Given - Provid er: Christian Bauer RN) folic acid (FOLVITE) tablet 1 mg 1 mg, Oral, Daily, First dose (after last modification) on Mon06/13/25 at 0830 0850 (Given - Provid er: Christian Bauer RN) hydrALAZINE (APRESOLINE) tablet 100 mg 100 mg, Oral, Every 8 hours, First dose on Mon06/12/25 at 2100 2030 (Given - Provider: Kaycee Wood RN) 0619 (Given - Provider: Kaycee Curtis, RN) HYDROmorphone (DILAUDID) injection Syrg 0.5 mg (COMPLETED) 0.5 mg, Intravenous, Once, On Mon06/12/25 at 2330, For 1 dose, If on IV and PO pain medications, use IV if patient cannot tolerate oral. 2317 (Given - Provider: Kaycee Curtis, JANA) insulin NPH (HumuLIN N) injection 20 Units 20 Units, Subcutaneous, Daily, First dose on Mon06/13/25 at 0900, Do not hold medication unless instructed by provider. HIGH ALERT MEDICATION 0852 (Not Given - Provider: Christian Bauer RN - Reason: Patient/family refused) loratadine (CLARITIN) tablet 10 mg 10 mg, Oral, Daily, First dose on Mon06/13/25 at 0900, Therapeutic Interchange: fexofenadine (FRANCOIS) tablet 180 mg po DAILY = loratadine (CLARITIN) tablet 10 mg po DAILY 0848 (Given - Provid er: Christian Bauer RN) metoprolol succinate (TOPROL-XL) 24 hr tablet 25 mg 25 mg, Oral, Daily, First dose (after last modification) on Mon06/13/25 at 0830, DO NOT CRUSH 0850 (Given - Provid er: Christian Bauer RN) mycophenolate (CELLCEPT) capsule 250 mg (CANCELED) 250 mg, Oral, 2 times daily, First dose on Mon06/12/25 at 2100, LEVEL 2 HAZARDOUS MEDICATION 2253 (Given - Provider: Skylar Jordan RN) mycophenolate (CELLCEPT) capsule 250 mg 250 mg, Oral, 2 times daily, First dose (after last modification) on Mon06/13/25 at 0830, LEVEL 2 HAZARDOUS MEDICATION 0849 (Given - Provid er: Christian Bauer RN) polyethylene glycol (MIRALAX) packet 17 g 17 g, Oral, Daily, First dose on Mon06/12/25 at 2200 2300 (Given - Provider: Skylar Jordan RN) 0853 (Not Given - Provider: Christian Bauer RN - Reason: Patient/family refused) ticagrelor (BRILINTA) tablet 90 mg (CANCELED) 90 mg, Oral, 2 times daily, First dose on Bobbi 06/12/25 at 2100, If patient received a ticagrelor loading dose, next maintenance dose should start within 12 hour. Subsequent doses should be kept on a BID schedule. 1753 (Given - Provider: Josie Paredes, RN) 0709 (Canceled Entry - Provider: Christian Bauer RN) ticagrelor (BRILINTA) tablet 90 mg 90 mg, Oral, 2 times daily, First dose (after last reorder) on Mon06/13/25 at 0900, If patient received a ticagrelor loading dose, next maintenance dose should start within 12 hour. Subsequent doses should be kept on a BID schedule. 0849 (Given - Provid er: Christian Bauer RN) Continuous Medication Order 06/11/2025 06/12/2025 06/13/2025 sodium chloride 0.9 % IV infusion 50 mL/hr, Intravenous, Continuous, Starting on Bobbi 06/12/25 at 1200, Pre-Procedure(Invasive Cardiology) 1235 (New Bag - Provider: Kaycee Wood RN) PRN Medication Order 06/11/2025 06/12/2025 06/13/2025 ALPRAZolam (XANAX) tablet 0.5 mg 0.5 mg, Oral, Nightly PRN, Sleep, Starting on Bobbi 06/12/25 at 1825 2300 (Given - Provider: Skylar Jordan RN) dextrose 10%-water (D10W) IV soln(Linked Group 3) 12.5 g, Intravenous, Every 15 min PRN, Low blood sugar, for glucose < 70 and alert but can not be corrected, orally or via feeding tube, Starting on Bobbi 06/12/25 at 1827, Recheck blood sugar in 15 minutes and repeat treatment if glucose still < 70. For Smart Pump: Set volume to be infused; 125 ml for 12.5 grams or 250 mL for 25 grams. dextrose 10%-water (D10W) IV soln(Linked Group 3) 25 g, Intravenous, Every 15 min PRN, Low blood sugar, for glucose < 70 and not alert, Starting on Bobbi 06/12/25 at 1827, Recheck glucose in 15 minutes and repeat treatment if glucose still < 70. For Smart Pump: Set volume to be infused; 125 ml for 12.5 grams or 250 mL for 25 grams. fentaNYL (SUBLIMAZE) injection (CANCELED) Intra-op PRN, Starting on Bobbi 06/12/25 at 1635, Intra-procedure(Invasive Cardiology) 1635 (Given - Provider: Josie Paredes RN)1654 (Given - Provider: Josie Paredes RN)1655 (Canceled Entry - Provider: Charlie Barnett MD)1733 (Given - Provider: Josie Paredes RN) glucagon HCL 1 mg/mL injection 1 mg 1 mg, Intramuscular, Use as directed PRN, for blood glucose < 70mg/dL with altered mental status, Starting on Bobbi 06/12/25 at 1827, Use only in patients with NO IV access, are unable to swallow, and have NO Feeding tube. Glucagon works by triggering release of pre-formed and stored glucose from the liver. If used, it should be followed as soon as possible by EITHER oral carbohydrates (if patient can subsequently eat) or by obtaining IV access and administering dextrose. Glucagon should not be repeated. glucose chewable tablet 12 g 12 g, Oral, Every 15 min PRN, Low blood sugar, for glucose 50-70 mg/dL, Starting on Bobbi 06/12/25 at 1827, Recheck glucose in 15 minutes and if glucose still < 70, repeat treatment. Labeled tablet strength may vary by coat operator insulator (may be expressed as grams of carbohydrates) per tablet. Each tablet = 4 grams of glucose. Do not give chewable tablets via feeding tube heparin (porcine) injection (CANCELED) Intra-op PRN, Starting on Bobbi 06/12/25 at 1726, Intra-procedure(Invasive Cardiology) 1726 (Given - Provider: Josie Paredes RN) midazolam (PF) (VERSED) injection (CANCELED) Intra-op PRN, Starting on Bobbi 06/12/25 at 1635, Intra-procedure(Invasive Cardiology) 1635 (Given - Provider: Josie Paredes RN)1654 (Given - Provider: Josie Paredes RN)1733 (Given - Provider: Josie Paredes RN)1745 (Given - Provider: Josie Paredes, JANA) nitroGLYCERIN in D5W injection - ELECTRONIC SALES AND SERVICE TECHNICIAN ONLY (CANCELED) Intra-op PRN, Starting on Bobbi 06/12/25 at 1656, Intra-procedure(Invasive Cardiology) 1655 (Given - Provider: Charlie Barnett MD) oxyCODONE-acetaminophen (PERCOCET) 5-325 mg per tablet 1 tablet 1 tablet, Oral, Every 8 hours PRN, severe pain (NRS 7-10) or if patient is non-communicative (CPOT 6-8), Starting on Bobbi 06/12/25 at 204, Maximum dose of acetaminophen is 4000 mg (4 grams) from all sources in 24 hours. 2029 (Given - Provider: Kaycee Wodo RN) 310 (Given - Provider: Kaycee Curtis RN) verapamiL (ISOPTIN) injection (CANCELED) Intra-op PRN, Starting on Bobbi 06/12/25 at 1656, Intra-procedure(Invasive Cardiology) 1655 (Given - Provider: Cuong Dobson MD) Linked Groups Order Group 1: aspirin chewable tablet 243 mg (COMPLETED)Jump to med 243 mg, Oral, Once, On Bobbi 06/12/25 at 1200, For 1 dose, If patient took 81 mg day of procedure, give 243 mg Aspirin. Administer prior to procedure., Pre-Procedure(Invasive Cardiology) Or aspirin tablet 325 mg (COMPLETED) 325 mg, Oral, Once, On Bobbi 06/12/25 at 1200, For 1 dose, Administer prior to procedure., Pre-Procedure(Invasive Cardiology) Group 2: cycloSPORINE modified (NEORAL/GENGRAF) capsule 100 mgJump to med 100 mg, Oral, Daily, First dose (after last modification) on Mon06/13/25 at 0830, LEVEL 2 HAZARDOUS MEDICATION And cycloSPORINE modified (NEORAL/GENGRAF) capsule 125 mgJump to med 125 mg, Oral, At Bedtime (2100), First dose (after last modification) on Mon06/13/25 at 2300, LEVEL 2 HAZARDOUS MEDICATION Group 3: dextrose 10%-water (D10W) IV solnJump to med 12.5 g, Intravenous, Every 15 min PRN, Low blood sugar, for glucose < 70 and alert but can not be corrected, orally or via feeding tube, Starting on Bobbi 06/12/25 at 1827, Recheck blood sugar in 15 minutes and repeat treatment if glucose still < 70. For Smart Pump: Set volume to be infused; 125 ml for 12.5 grams or 250 mL for 25 grams. Or dextrose 10%-water (D10W) IV solnJump to med 25 g, Intravenous, Every 15 min PRN, Low blood sugar, for glucose < 70 and not alert, Starting on Bobbi 06/12/25 at 1827, Recheck glucose in 15 minutes and repeat treatment if glucose still < 70. For Smart Pump: Set volume to be infused; 125 ml for 12.5 grams or 250 mL for 25 grams. documented in this encounter Additional Health Concerns Assessment Noted Time PHQ-9 Depression Total Score: 0 12/06/19 18 3:00 PM EDT documented as of this encounter Care Teams District Adviser Relationship Specialty Start Date End Date Edgar Fournier MD [address] [place] [address] [place] [address] PCP - General 06/12/25 Maile Valles, JANA [facility] Post Coordinator Transplant Hepatology 11/07/17 Estephania Sharif, PharmD Pharmacist Pharmacist 11/11/19 Khari Lema MD [address] [facility] [address] [facility] [place] [address] T[facility] Mid Level Clinician Transplant Hepatology 05/29/25 documented as of this encounter
--- OUTSIDE RECORDS SUMMARY | 2025-06-12 13:58 | XMS_ITS | Encounter Summary ---
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 AM EDT [facility] Comment:As of 2021, the [...] MD LAB BLOOD ORDERABLES Final Resul t [facility] [address] * (ABNORMAL) CBC (06/13/2025 3:09 AM EDT) WBC 5.3 3.8 - 10.8 10E3/uL 06/13/2025 3:44 AM EDT [facility] RBC 4.22 4.20 - 5.80 10E6/uL 06/13/2025 3:44 AM EDT [facility] Hemoglobin 13.4 13.2 - 17.1 g/dL 06/13/2025 3:44 AM EDT [facility] Hematocrit 40.8 38.5 - 50.0 % 06/13/2025 3:44 AM EDT [facility] MCV 96.7 80.0 - 100.0 fL 06/13/2025 3:44 AM EDT [facility] MCH 31.7 27.0 - 33.0 pg 06/13/2025 3:44 AM EDT [facility] MCHC 32.8 32.0 - 36.0 g/dL 06/13/2025 3:44 AM EDT [facility] RDW 18.2(H) 11.0 - 15.0 % 06/13/2025 3:44 AM EDT [facility] Platelets 226 140 - 400 10E3/uL 06/13/2025 3:44 AM EDT [facility] MPV 7.7 7.5 - 11.5 fL 06/13/2025 3:44 AM EDT [facility] Whole Blood 06/13/2025 3:09 AM EDT 06/13/2025 3:22 AM EDT us Said Yomi PEREZ LAB BLOOD ORDERABLES Final Resul t [facility] [address] * (ABNORMAL) Lipid Profile (06/13/2025 3:09 AM EDT) Non-HDL Cholesterol, Calculated 140(H) 0 - 129 mg/dL 06/13/2025 3:48 AM EDT [facility] Comment: Desirable: < 130 mg/dL Above Desirable: 130-159 mg/dL Borderline High: 160-189 mg/dL High: 190-219 mg/dL Very High: > 219 mg/dL Cholesterol, Total 178 0 - 200 mg/dL 06/13/2025 3:48 AM EDT [facility] Triglycerides 308(H) 10 - 149 mg/dL 06/13/2025 3:48 AM EDT [facility] HDL 38(L) 60 - 92 mg/dL 06/13/2025 3:48 AM EDT [facility] Comment: LIPID PROFILE INTERPRETATION CHOLESTEROL,TOTAL(mg/dL) [...] LDL Cholesterol 78 mg/dL 3:48 AM EDT [facility] Plasma 06/13/2025 3:09 AM EDT 06/13/2025 3:22 AM EDT Narrative [facility] - 06/13/2025 3:48 AM EDT Can be obtained within 6 months prior to admission or during current admission LDL cholesterol calculated using the Friedewald equation. us Said Yomi PEREZ LAB BLOOD ORDERABLES Final Resul t [facility] [address] * ECG 12 lead (MUSE) (06/12/2025 6:08 PM EDT) 06/12/2025 6:08 PM EDT Narrative MUSE - 06/14/2025 12:09 AM EDT Ventricular Rate: 99 BPM Atrial Rate: 99 BPM P-R Interval: 254 ms QRS Duration: 100 ms QT: 356 ms QTc: 456 ms P Benavides: 47 degrees R Benavides: 59 degrees T Benavides: -9 degrees Diagnosis Line: SINUS RHYTHM WITH 1ST DEGREE A-V BLOCK ^ OTHERWISE NORMAL ECG ^ ^ Confirmed by MD KRISHNA, SAADIA ([id number]) on 06/14/2025 12:09:14 AM us Said Yomi PEREZ ECG ORDERABLES Final Result MUSE * LEFT AND RIGHT HEART CATHETERIZATION (06/12/2025 5:56 PM EDT) 06/12/2025 4:38 PM EDT Narrative [facility] - 06/15/2025 12:28 PM EST *[facility]* Cardiac Prosthetics Technician [address] [place], [place] [address] CATHETERIZATION LAB STUDY Patient: Aiden Stauffer Age: 50 Study 06/12/2025 W Date: Patient [id number] Gender: M Study 04:38:52 PM ID: Time: [...] 90mg BID 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 3. Right radial artery access. A [id number] Glidesheath - Slender - .021 sheath was [...] stenosis in the mid LAD. 1. A [id number] Pressure Wire X wire was placed. 2. Balloon angioplasty was performed. A 3mm (D) x 15mm (L), Balloon, NC Euphora balloon was employed. The balloon was placed across the lesion and given two inflations with a maximum inflation pressure of 15atm. 3. A .[id number] Runthrough NS extra floppy wire was placed. [...] + !LV pressure s/d, ed !119/10, 18, dP/mq=3079bt Hg/s! + + + !Aortic pressure s/d [...] and electronically signed by Cuong Dobson MD [id number] Procedure Note Cuong Dobson MD - 06/15/2025 *[facility]* Cardiac Prosthetics Technician [address] [place] [id number] CATHETERIZATION LAB STUDY Patient: Aiden Stauffer Age: 50 Study 06/12/2025 W Date: Patient [id number] Gender: M Study 04:38:52PM ID: Time: : [...] 90mg BID 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 3. Right radial artery access. A [id number] Glidesheath - Slender - .021 sheath was [...] stenosis in the mid LAD. 1. A [id number] Pressure Wire X wire was placed. 2. Balloon angioplasty was performed. A 3mm (D) x 15mm (L), Balloon, NC Euphora balloon was employed. The balloon was placed across thelesion and given two inflations with a maximum inflation pressure of 15atm. 3. A .[id number] Runthrough NS extra floppy wire was placed. 4. Stent placement was performed. A 3.5mm (D) x 32mm (L), Stent, Synergy MEGATRON stent was used. The stent was advanced across the lesion and deployed with a single inflation and a maximum pressure of 15atm. STUDY COMPLETION: The patient tolerated the procedure well. There wereno complications. Contrast: Omnipaque 350 150ml (total dose). [id number] 50ml (wasted). Radiation: Fluoroscopy time: 16.4min. Total [...] + !LV pressure s/d, ed !119/10, 18, dP/yc=0233gn Hg/s! + + + !Aortic pressure s/d [...] and electronically signed by Cuong Dobson MD [id number] [facility] [id number] Final Result [facility] * POC Activated Clotting Time Low Range (06/12/2025 5:51 PM EDT) Activated Clotting Time, Low Range POC (4) OUT OF RANGE HI 113 - 149 seconds 06/13/2025 5:47 AM EDT [facility] Comment: ACT LOW RANGE TARGET RANGES: [...] OF CARE TEST ORDERABLES F inal Result [facility] [address] * (ABNORMAL) Basic metabolic panel (06/12/2025 1:06 PM EDT) Pathologist [facility] Sodium 136 133 - 146 mmol/L 06/12/2025 2:07 PM EDT [facility] Potassium 5.2 3.5 - 5.3 mmol/L 06/12/2025 2:07 PM EDT [facility] Comment:Hemolysis Present: R esults may be influenced artificially. Recommend recollection as clinically indicated. Chloride 102 98 - 110 mmol/L 06/12/2025 2:07 PM EDT [facility] CO2 23 21 - 33 mmol/L 06/12/2025 2:07 PM EDT [facility] Comment:High lactate dehydro genase concentrations in patient samples may cause falsely increased bicarbonate results. If markedly elevated LDH is observed or suspected, please assess results in conjunction with patient`s clinical presentation. In cases of discrepant results, consider evaluating CO2 in with a blood gas order. Anion Gap 11 3 - 16 mmol/L 06/12/2025 2:07 PM EDT [facility] BUN 40(H) 7 - 25 mg/dL 06/12/2025 2:07 PM EDT [facility] Creatinine 7.61(H) 0.60 - 1.30 mg/dL 06/12/2025 2:07 PM EDT [facility] Glucose 123(H) 70 - 100 mg/dL 06/12/2025 2:07 PM EDT [facility] Calcium 8.5(L) 8.6 - 10.3 mg/dL 06/12/2025 2:07 PM EDT [facility] Osmolality, Calculated 293 278 - 305 mOsm/kg 06/12/2025 2:07 PM EDT [facility] EGFR 8 06/12/2025 2:07 PM EDT [facility] Comment:As of 2021, the [...] PM EDT 06/12/2025 1:21 PM EDT Narrative [facility] - 06/12/2025 2:07 PM EDT If not done within 14 days or previous BMP results were abnormal us Kim Banerjee [facility] BLOOD ORDERABLES Final Resul t [facility] [address] [facility] [place] [address], [facility] * (ABNORMAL) CBC (06/12/2025 1:06 PM EDT) WBC 4.5 3.8 - 10.8 10E3/uL 06/12/2025 1:34 PM EDT [facility] RBC 4.51 4.20 - 5.80 10E6/uL 06/12/2025 1:34 PM EDT [facility] Hemoglobin 14.1 13.2 - 17.1 g/dL 06/12/2025 1:34 PM EDT [facility] Hematocrit 43.7 38.5 - 50.0 % 06/12/2025 1:34 PM EDT [facility] MCV 97.0 80.0 - 100.0 fL 06/12/2025 1:34 PM EDT [facility] MCH 31.4 27.0 - 33.0 pg 06/12/2025 1:34 PM EDT [facility] MCHC 32.3 32.0 - 36.0 g/dL 06/12/2025 1:34 PM EDT [facility] RDW 17.7(H) 11.0 - 15.0 % 06/12/2025 1:34 PM EDT [facility] Platelets 213 140 - 400 10E3/uL 06/12/2025 1:34 PM EDT [facility] MPV 7.6 7.5 - 11.5 fL 06/12/2025 1:34 PM EDT [facility] Whole Blood 06/12/2025 1:06 PM EDT 06/12/2025 1:21 PM EDT Narrative [facility] - 06/12/2025 1:34 PM EDT If not done within 14 days or if previous CBC results were abnormal us Kim Banerjee [facility] LAB BLOOD ORDERABLES Final Resul t [facility] [address] [place] [address], [facility] * ECG 12 lead (MUSE) (06/12/2025 12:25 PM EDT) 06/12/2025 12:2 5 PM EDT Narrative MUSE - 06/14/2025 12:08 AM EDT Ventricular Rate: 96 BPM Atrial Rate: 96 BPM P-R Interval: 250 ms QRS Duration: 102 ms QT: 360 ms QTc: 454 ms P Benavides: 49 degrees R Benavides: 54 degrees T Benavides: 120 degrees Diagnosis Line: SINUS RHYTHM WITH 1ST DEGREE A-V BLOCK ^ CANNOT RULE OUT INFERIOR INFARCT , AGE UNDETERMINED ^ ABNORMAL ECG ^ ^ Confirmed by MD KRISHNA, SAADIA ([id number]) on 06/14/2025 12:08:50 AM Kim Banerjee APPLIED MARINE PHYSICS PROFESSOR ECG ORDERABLES Final Result Performing Organization Address [facility] de Phone Number MUSE * Protime-INR (06/12/2025 12:08 PM EDT) Protime 13.1 12.1 - 15.1 seconds 06/12/2025 1:00 PM EDT [facility] INR 0.9 0.9 - 1.1 06/12/2025 1:00 PM EDT [facility] Comment: RECOMMENDED THERAPEUTIC RANGES USING INR : Stable oral anticoagulant therapy: 2.0 - 3.0 Mechanical prosthetic heart valve: 2.5 - 3.5 Recurrent acute myocardial infarction: 2.5 - 3.5 Plasma 06/12/2025 12:0 8 PM EDT 06/12/2025 12:48 PM EDT Narrative [facility] - 06/12/2025 1:00 PM EDT If not done within 14 days or preform day of procedure for any patients with liver issues or on Coumadin Kim Banerjee [facility] BLOOD ORDERABLES Final Resul t Performing Organization Address [facility] Co de Phone Number [facility] [address] * Cardiac Cath Documents Scan (06/12/2025 5:58 AM EDT) us Scanning Uchhim SCAN DOCS - NO RESULTS Final Res ult documented in this encounter Visit Diagnoses Diagnosis H/O heart artery stent- Primary Essential (primary) hypertension Unspecified essential hypertension Type 2 diabetes 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, with long-term current use of insulin ([facility]) ESRD (end stage renal disease) on dialysis ([facility]) End stage renal disease Pre-transplant evaluation for kidney transplant High risk surgery, pre-operative cardiovascular examination Pre-operative cardiovascular examination Essential (primary) hypertension Unspecified essential hypertension Type 2 diabetes 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, with long-term current use of insulin ([place]) ESRD (end stage renal disease) on dialysis ([place]) End stage renal disease Pre-transplant evaluation for kidney transplant High risk surgery, pre-operative cardiovascular examination Pre-operative cardiovascular examination documented in this encounter Administered Medications Inactive Administered Medications - up to 3 most recent administrations Medication Order MAR Action Action Date Dose Rate Site ALPRAZolam (XANAX) tablet 0.5 mg 0.5 mg, Oral, Nightly PRN, Sleep, Starting on Bobbi 06/12/25 at 1825 Given 06/12/2025 11:00 PM EDT [...] last reorder) on Bobbi 06/12/25 at 2100 Given 06/12/2025 10:53 PM EDT 200 mg carBAMazepine (TEGRETOL) tablet 200 mg 200 mg, Oral, 2 times daily, First dose (after last modification) on Mon06/13/25 at 0830 Given 06/13/2025 8:50 AM EDT 200 mg cholecalciferol (vitamin D3) capsule 50,000 Units 50,000 Units, Oral, Every Mon,Mon,Sat in Dialysis (Once per day on Monday), First dose on 06/14/25 at 0900 cycloSPORINE modified (NEORAL/GENGRAF) capsule 100 [...] 8 mg 8 mg, Oral, At Bedtime (2099), First dose on Mon06/12/25 at 2100 Given [...] Given 06/13/2025 8:50 AM EDT 160 mg fentaNYL (SUBLIMAZE) injection Intra-op PRN, Starting on Mon06/12/25 at 1635, Intra-procedure(Invasive Cardiology) Given 06/12/2025 5:33 PM EDT 50 mcg Given 06/12/2025 4:54 PM EDT 25 mcg Given 06/12/2025 4:35 PM EDT 25 mcg folic acid (FOLVITE) tablet 1 mg 1 mg, Oral, Daily, First dose (after last modification) on Mon06/13/25 at 0830 Given 06/13/2025 8:50 AM EDT 1 mg heparin (porcine) injection Intra-op PRN, Starting on Mon06/12/25 at 1726, Intra-procedure(Invasive Cardiology) Given 06/12/2025 5:26 PM EDT 13,000 Units hydrALAZINE (APRESOLINE) tablet 100 mg 100 mg, Oral, Every 8 hours, First dose on Mon06/12/25 at 2100 Given 06/13/2025 6:19 AM EDT 100 mg Given 06/12/2025 8:30 PM EDT 100 mg HYDROmorphone (DILAUDID) injection Syrg 0.5 mg 0.5 mg, Intravenous, Once, On Mon06/12/25 at [...] Given 06/13/2025 8:50 AM EDT 25 mg midazolam (PF) (VERSED) injection Intra-op PRN, Starting on Bobbi 06/12/25 at 1635, Intra-procedure(Invasive Cardiology) Given 06/12/2025 5:45 PM EDT 1 mg Given 06/12/2025 5:33 PM EDT 1 mg Given 06/12/2025 4:54 PM EDT 1 mg mycophenolate (CELLCEPT) capsule 250 mg 250 mg, Oral, 2 times daily, First dose on Bobbi 06/12/25 at 2100, LEVEL 2 HAZARDOUS MEDICATION Given 06/12/2025 10:53 PM EDT 250 mg mycophenolate (CELLCEPT) capsule 250 mg 250 mg, Oral, 2 times daily, First dose (after last modification) on Mon06/13/25 at 0830, LEVEL 2 HAZARDOUS MEDICATION Given 06/13/2025 8:49 AM EDT 250 mg nitroGLYCERIN in D5W injection - FRONT SIGHT ATTACHER ONLY Intra-op PRN, Starting on Bobbi 06/12/25 at 1656, Intra-procedure(Invasive Cardiology) Given 06/12/2025 4:56 PM ED T 200 mcg oxyCODONE-acetaminophen (PERCOCET) 5-325 mg per tablet 1 tablet 1 tablet, Oral, Every 8 hours PRN, severe pain (NRS 7-10) or if patient is non-communicative (CPOT 6-8), Starting on Bobbi 06/12/25 at 2044, Maximum dose of acetaminophen is [...] on Bobbi 06/12/25 at 1200, Pre-Procedure(Invasive Cardiology) New Bag 06/12/2025 12:35 PM EDT 50 mL/hr 50 mL/hr ticagrelor (BRILINTA) tablet 90 mg 90 mg, Oral, 2 times daily, First dose on Bobbi 06/12/25 at 2100, If patient received a ticagrelor loading dose, next maintenance dose should start within 12 hour. Subsequent doses should be kept on a BID schedule. Given 06/12/2025 5:53 PM EDT 180 mg ticagrelor (BRILINTA) tablet 90 mg 90 mg, Oral, 2 times daily, First dose (after last reorder) on Mon06/13/25 at 0900, If patient received a ticagrelor loading dose, next maintenance dose should start within 12 hour. Subsequent doses should be kept on a BID schedule. Given 06/13/2025 8:49 AM EDT 90 mg verapamiL (ISOPTIN) injection Intra-op PRN, Starting on Bobbi 06/12/25 at 1656, Intra-procedure(Invasive Cardiology) Given 06/12/2025 4:56 PM EDT 2.5 mg documented in this [...] (after last reorder) on Mon06/12/25 at 2100 2253 (Given - Provider: Skylar [...] mg (CANCELED) 125 mg, Oral, At Bedtime (2099), First dose on Mon06/12/25 at 2100, LEVEL 2 HAZARDOUS MEDICATION 2254 (Given - Provider: Skylar Jordan RN) cycloSPORINE modified (NEORAL/GENGRAF) capsule 125 mg(Linked Group 2) 125 mg, Oral, At Bedtime (2100), First dose (after last modification) on Mon06/13/25 at 2300, LEVEL 2 HAZARDOUS MEDICATION doxazosin (CARDURA) tablet 8 mg 8 mg, Oral, At Bedtime (2099), First dose on Mon06/12/25 at 2100 2254 (Given - Provider: Skylar Jordan RN) entecavir (BARACLUDE) tablet 0.5 mg 0.5 mg, Oral, Every 7 days, First dose on Mon06/12/25 at 2100, ADMINISTER ON EMPTY STOMACH (2 HOURS BEFORE OR AFTER MEALS). LEVEL 2 HAZARDOUS MEDICATION 2253 (Given - Provider: Skylar Jordan, JANA) fenofibrate tablet 160 mg 160 mg, Oral, Daily, First dose on Mon06/13/25 at 0900, Therapeutic Interchange: fenofibrate, micronized (LOFIBRA) 134 mg capsule daily = fenofibrate (TRICOR) 160 mg tablet daily 0850 (Given - Provid er: Christian Bauer, JANA) folic acid (FOLVITE) tablet 1 mg 1 mg, Oral, Daily, First dose (after last modification) on Mon06/13/25 at 0830 0850 (Given - Provid er: Christian Bauer, JANA) hydrALAZINE (APRESOLINE) tablet 100 mg 100 mg, Oral, Every 8 hours, First dose on Mon06/12/25 at 2100 2030 (Given - Provider: Kaycee Wood RN) 0619 (Given - Provider: Kaycee Curtis, JANA) HYDROmorphone (DILAUDID) injection Syrg 0.5 mg (COMPLETED) [...] MEDICATION 0852 (Not Given - Provider: Christian Bauer, JANA - Reason: Patient/family refused) loratadine (CLARITIN) tablet 10 mg 10 mg, Oral, Daily, First dose on Mon06/13/25 at 0900, Therapeutic Interchange: fexofenadine (FRANCOIS) tablet 180 mg po DAILY = loratadine (CLARITIN) tablet 10 mg po DAILY 0848 (Given - Provid er: Christian Bauer, JANA) metoprolol succinate (TOPROL-XL) 24 hr tablet 25 mg 25 mg, Oral, Daily, First dose (after last modification) on Mon06/13/25 at 0830, DO NOT CRUSH 0850 (Given - Provid er: Christian Bauer RN) mycophenolate (CELLCEPT) capsule 250 mg (CANCELED) 250 mg, Oral, 2 times daily, First dose on Bobbi 06/12/25 at 2100, LEVEL 2 HAZARDOUS MEDICATION 2253 (Given - Provider: Skylar Jordan, JANA) mycophenolate (CELLCEPT) capsule 250 mg 250 [...] treatment. Labeled tablet strength may vary by asset protection agent (may be expressed as grams of carbohydrates) [...] Provider: Josie Paredes RN)1745 (Given - Provider: Joise Paredes RN) nitroGLYCERIN in D5W injection - FRONT SIGHT ATTACHER ONLY (CANCELED) Intra-op PRN, Starting on Bobbi 06/12/25 at 1656, Intra-procedure(Invasive Cardiology) 165 (Given - Provider: Charlie Barnett MD) oxyCODONE-acetaminophen (PERCOCET) 5-325 mg per tablet 1 tablet 1 tablet, Oral, Every 8 hours PRN, severe pain (NRS 7-10) or if patient is non-communicative (CPOT 6-8), Starting on Bobbi 06/12/25 at 2044, Maximum dose of acetaminophen is 4000 mg (4 grams) from all sources in 24 hours. 2030 (Given - Provider: Kaycee Wood RN) 031 (Given - Provider: Kaycee Curtis RN) verapamiL (ISOPTIN) injection (CANCELED) Intra-op PRN, Starting on Bobbi 06/12/25 at 1656, Intra-procedure(Invasive Cardiology) 1656 (Given - Provider: Cuong Dobson MD) Linked [...] documented as of this encounter Care Teams Plastics Fabricator Or Welder Relationship Specialty Start Date End Date Edgar Fournier MD [address] [place] [address] [place] [address] PCP - General 06/12/25 Maile Valles, RN Txp Post Coordinator Transplant Hepatology 11/07/17 Estephania Sharif, PharmD Pharmacist Pharmacist 11/11/19 Khari Lema MD [address], [facility] [address] [place] [address] Txp Magnetic Prospector Transplant Hepatology 05/29/25 documented as of this encounter
--- OUTSIDE RECORDS SUMMARY | 2025-07-07 19:00 | XMS_ITS ---
Author Name Glenn Kay Address [address] [place] [address] Phone [phone] Organization [facility] e, NA DOCUMENT DISCLAIMER Multiple document versions may exist, please be sure you review the latest version. The information in the [facility] Progress Note Document represents a providers documented clinical note containing certain health and medical information. It may not contain the complete medical history for the patient and should be independently verified. The represented time in the document is Eastern Time PROVIDER ROUNDING NOTE HHD Patient:?Aiden?Eh,?1975,?50y,?M Dialysis?[facility] Attending?Administrative Hearing Officer:?Man?Jose Daniel Service?Date:?07/08/2025 Service?Provider:?Glenn?Rahul,? I?spoke?with?the?patient?today?over?telephone. OVERVIEW The?patient?presented?with?ESRD Primary?cause?of?renal?failure:?Type?2?diabetes?mellitus&#16 0;with?diabetic?chronic?kidney?disease Comments:?Tele?visit.?Doing?well.?Issues?with?bradycardia?no w?improving?on?lower?dose?of?correg Medications?and?labs?reviewed. LAST?HOSPITALIZATION Discharge?Diagnosis:?E87.5?Hyperkalemia Admission?Date?10/26/24 Discharge?Date?10/28/24 TRANSPLANT Comments:?Under?eval?Hx?of?liver?txp?on?CSA?and?ce llcept.?Last?csa?lvl?~44?no?change?per?uc VITALS?ASSESSMENT Vitals?measured?in-clinic. Comments:?Stable BP?Sit ??06/04/2025:?131/105 ??05/09/2025:?129/86 ??04/01/2025:?154/105 Weight?(kg) ??06/04/2025:?129.5 ??05/09/2025:?126.6 ??04/01/2025:?127.7 Temp ??06/04/2025:?98.1 Respirations ??06/04/2025:?18 Pulse ??06/04/2025:?106 TREATMENT?ASSESSMENT BP?Stand?Pre ??07/06/2025:?147/85 ??07/04/2025:?141/77 ??07/02/2025:?138/93 BP?Sit?Pre ??07/06/2025:?149/86 ??07/04/2025:?142/78 ??07/02/2025:?140/94 BP?Stand?Post ??07/06/2025:?114/73 ??07/04/2025:?109/66 ??07/02/2025:?120/86 BP?Sit?Post ??07/06/2025:?112/71 ??07/04/2025:?106/64 ??07/02/2025:?120/88 Tx?Duration ??07/06/2025:?3:17 ??07/04/2025:?2:56 ??07/02/2025:?3:17 %?Dialysate?Processed ??07/06/2025:?100 ??07/04/2025:?99 ??07/02/2025:?100 FLUID?ASSESSMENT EDW?(kg) ??07/06/2025:?128 ??07/04/2025:?128 ??07/02/2025:?128 Weight?Pre?(kg) ??07/06/2025:?130.2 ??07/04/2025:?128.6 ??07/02/2025:?129.8 Weight?Post?(kg) ??07/06/2025:?127 ??07/04/2025:?126.6 ??07/02/2025:?127.2 PWV?(kg) ??07/06/2025:?-1 ??07/04/2025:?-1.4 ??07/02/2025:?-0.8 UF?Rate?(mL/kg/hr) ??07/06/2025:?7.7 ??07/04/2025:?5.4 ??07/02/2025:?6.2 DIALYSIS?PRESCRIPTION ??HHD?4x?Week?Start?date:?12/19/24 ??Cartridge:?CAR?172 ??BFR:?450 ??DFR:?17 ??Potassium:?1.0 ??Lactate:?40 ??EDW:?128 ??Volume:?50 ??Est.?Time:?3:00 ??Rx?updated?on:?12/19/2024 Comments:?Chronic?hyperkalemia,?issues?with?clearance?need?more treatment Continue?greater?than?3x?more?frequent?dialysis?prescription ADEQUACY?ASSESSMENT Adequacy?target?met.? spKt/V,?wstd?Kt/V,?URR ??05/28/2025:?0.74,?2.1,?47.0 ??04/24/2025:?1.04,?2.6,?61.0 ??03/25/2025:?1.01,?2.6,?59.0 ACCESS?ASSESSMENT ??Access?Type:?CVCatheter ??Access?SubType:?Tunneled ??Access?Status:?Active?(In?Use)?-?04/18/2024 ??Access?Location:?Chest ??Placed:?04/18/2024 ANEMIA?ASSESSMENT HGB?at?goal.? HGB,?TSAT ??06/25/2025:?14.0,?- ??05/28/2025:?13.3,?29.0 ??04/24/2025:?15.0,?25.0 ?? Ferritin ??05/28/2025:?224.0 ??04/24/2025:?135.0 ??03/25/2025:?152.0 BMM?ASSESSMENT PTH?controlled.? PTH,?Intact ??06/25/2025:?196.0 ??05/28/2025:?252.0 ??04/24/2025:?255.0 ?? Calcium,?Phosphorus ??05/28/2025:?8.4,?4.6 ??04/24/2025:?7.8,?5.2 ??03/25/2025:?8.0,?6.2 NUTRITION?ASSESSMENT Comments:?Hyerk?noted.?Called?[facility]?liver?txp.?Last?CsA?lv l?40?before?that?in?2022?it?was?180.?CSA?lvl? checked?yesterday?need?to?f/u?w?results.?D/c?loklema?st art?veltassa?8.7?gm?daily.?Continue?taking?lactulose?1x&#160 ;daily?repear?K?~?5.1.?continue?w?veltassa Potassium,?Albumin ??05/28/2025:?6.9,?4.0 ??04/24/2025:?6.4,?4.4 ??03/25/2025:?5.9,?4.5 PHYSICAL?EXAM Exam?Not?Performed. DIAGNOSIS Chief?Complaint:?N18.6?End?stage?renal?disease Patient?data?updated?07/08/2025?at?11:15?AM Signed?By:?Rahul,?Glenn,???on?07/08/2025?11:24:36?AM END OF DOCUMENT
--- OUTSIDE RECORDS SUMMARY | 2025-07-11 19:00 | XMS_ITS ---
Author Name Glenn Kay Address [address] [place] [address] Phone [phone] Organization [facility] e, NA DOCUMENT DISCLAIMER Multiple document versions may exist, please be sure you review the latest version. The information in the [facility] Progress Note Document represents a providers documented clinical note containing certain health and medical information. It may not contain the complete medical history for the patient and should be independently verified. The represented time in the document is Eastern Time PROVIDER ROUNDING NOTE HHD THIS NOTE HAS BEEN VOIDED IN THE SOURCE SYSTEM. END OF DOCUMENT
--- OUTSIDE RECORDS SUMMARY | 2025-08-10 01:51 | XMS_ITS | Encounter Summary ---
Author Organization [facility] Address [address] [place] [address] Care Team Providers Care Slip Laster Name Role Phone Ibrahima Fournier MD Primary Care Provider [phone] Enrique Griffith MD Unavailable [phone] Encounter Details Date Type Department Care Team (Late st Contact Info) Description 09/27/2016 Legacy OTTR Encounter Historical OTTR [address] [place] [address] Bridgett Márquez, RN [facility] LIVER [id number] [address] [place] [address] Social History Tobacco Use Types Packs/Day Years [...] and cramping. He was in hospital at [facility] and they transferred him to . At they determined he was getting better and sent him home. Patient still has a lot of abdominal pain, and does not know what to do. When patient admitted to [facility] ED his ammonia level was 170, but [...] documented as of this encounter Care Teams Slip Laster Relationship Specialty Start [place] [address] PCP - General 12/25/20 Enrique Griffith MD [address] [place] [phone] Referring Physician Nephrology 01/08/21 documented as of this encounter
--- OUTSIDE RECORDS SUMMARY | 2025-08-10 01:51 | XMS_ITS | Encounter Summary ---
Author Organization [facility] Address [address] [place] [address] Care Team Providers Care Top Loader Name Role Phone Ibrhaima Fournier MD Primary Care Provider [phone] Enrique Griffith MD Unavailable [phone] Encounter Details Date Type Department Care Team (Late st Contact Info) Description 10/24/2016 Legacy OTTR Encounter Historical OTTR [address] [place] [address] Sandrita Ferguson, OUTSIDE UPHOLSTERER [address] [facility] [address] [place] [address] Social History Tobacco Use Types [...] ORDERABLES Final R esult Performing Organization Address [facility] Co de Phone Number EXTERNAL LAB * OTTR LAB RESULTS (MANUAL) (10/22/2016 4:06 PM EST) External Estimated GFR 76.85 EXTERNAL LAB 10/22/2016 4:06 PM EST Narrative EXTERNAL LAB - 10/22/2016 4:48 PM EST Automated LAB Interface [facility] Provider LAB BLOOD ORDERABLES Final R esult Performing Organization Address [facility] Co de Phone Number EXTERNAL LAB * OTTR LAB RESULTS (MANUAL) (10/22/2016 2:24 AM EST) External Estimated GFR 80.17 EXTERNAL LAB 10/22/2016 2:24 AM EST Narrative EXTERNAL LAB - 10/22/2016 3:19 AM EST Automated LAB Interface [facility] Provider LAB BLOOD ORDERABLES Final R esult Performing Organization Address [facility] de Phone Number EXTERNAL LAB documented in this encounter Visit Diagnoses Not on filedocumented in this encounter Additional Health Concerns Infection Onset Date Last Indicated Resolved Time COVID-19 Rule-Out 11/08/2021 11/08/2021 11/08/2021 8:06 AM EDT documented as of this encounter Care Teams Top Loader Relationship Specialty Start [place] [address] PCP - General 12/25/20 Enrique Griffith MD [address] [place] [phone] Referring Physician Nephrology 01/08/21 documented as of this encounter
--- OUTSIDE RECORDS SUMMARY | 2025-08-10 01:51 | XMS_ITS | Encounter Summary ---
Author Organization [facility] Address [address] [place] [address] Care Team Providers Care Brim Molder Name Role Phone Ibrahima Fournier MD Primary Care Provider [phone] Enrique Griffith MD Unavailable [phone] Encounter Details Date Type Department Care Team (Late st Contact Info) Description 11/16/2016 Legacy OTTR Encounter Historical OTTR [address] [place] [address] Bridgett Márquez, RN [facility] [id number] [address] [place] [address] Social History Tobacco Use Types Packs/Day Years [...] documented as of this encounter Care Teams Brim Molder Relationship Specialty [place] [address] PCP - General 12/25/20 Enrique Griffith MD [address] [place] [phone] Referring Physician Nephrology 01/08/21 documented as of this encounter
--- OUTSIDE RECORDS SUMMARY | 2025-08-10 01:51 | XMS_ITS | Encounter Summary ---
Author Organization [facility] Address [address] [place] [address] Care Team Providers Care Head Bookkeeper Name Role Phone Ibrahima Fournier MD Primary Care Provider [phone] Enrique Griffith MD Unavailable [phone] Encounter Details Date Type Department Care Team (Late st Contact Info) Description 10/20/2016 Legacy OTTR Encounter Historical OTTR [address] [place] [address] Sandrita Ferguson, COMMUNICATIONS TOWER CLIMBER [address] [facility] [address] [place] [phone] Social History Tobacco Use Types Packs/Day Years [...] RESULTS (MANUAL) (10/21/2016 4:00 AM EST) Pathologist [facility] External Estimated GFR 87.69 EXTERNAL LAB 10/21/2016 4:00 AM EST Narrative EXTERNAL LAB - 10/21/2016 3:12 AM EST Automated LAB Interface Historical Provider LAB BLOOD ORDERABLES Final R esult Performing Organization Address [facility] de Phone Number EXTERNAL LAB * OTTR LAB RESULTS (MANUAL) (10/20/2016 11:17 AM EST) [facility] External Estimated GFR 81.93 EXTERNAL LAB 10/20/2016 11:1 7 AM EST Narrative EXTERNAL LAB - 10/20/2016 12:03 PM EST Automated LAB Interface Historical Provider LAB BLOOD ORDERABLES Final R esult Performing Organization Address [facility]/ZIP Co de Phone Number EXTERNAL LAB * OTTR LAB RESULTS (MANUAL) (10/20/2016 2:11 AM EST) Pathologist [facility] External Estimated GFR 79.31 EXTERNAL LAB 10/20/2016 [...] as of this encounter Care Teams Head Bookkeeper Relationship Specialty [place] [address] PCP - General 12/25/20 Enrique Griffith MD [address] [place] [phone] Referring Physician Nephrology 01/08/21 documented as of this encounter
--- OUTSIDE RECORDS SUMMARY | 2025-08-10 01:51 | XMS_ITS | Encounter Summary ---
Author Organization [facility] Address [address] [place] [address] Care Team Providers Care Dough Brake Machine Operator Name Role Phone Ibrahima Fournier MD Primary Care Provider [phone] Enrique Griffith MD Unavailable [phone] Encounter Details Date Type Department Care Team (Late st Contact Info) Description 10/13/2016 Legacy OTTR Encounter Historical OTTR [address] [place] [address] Nataly Masterson RN [facility] None Social [...] documented as of this encounter Care Teams Dough Brake Machine Operator Relationship Specialty Start [place] [address] PCP - General 12/25/20 Enrique Griffith MD [address] [place] [address] Referring Physician Nephrology 01/08/21 documented as of this encounter
--- OUTSIDE RECORDS SUMMARY | 2025-08-10 01:51 | XMS_ITS | Encounter Summary ---
Author Organization [facility] Address [address] [place] [address] Care Team Providers Care Retail Assistant Name Role Phone Ibrahima Fournier MD Primary Care Provider [phone] Enrique Griffith MD Unavailable [phone] Encounter Details Date Type Department Care Team (Late st Contact Info) Description 10/28/2016 Legacy OTTR Encounter Historical OTTR [address] [place] [address] Anne Ohara [address] Social History Tobacco Use Types Packs/Day Years [...] as of this encounter Care Teams Retail Assistant Relationship Specialty Start [place] [address] PCP - General 12/25/20 Enrique Griffith MD [address] [place] [address] Referring Physician Nephrology 01/08/21 documented as of this encounter
--- OUTSIDE RECORDS SUMMARY | 2025-08-10 01:51 | XMS_ITS | Encounter Summary ---
Author Organization [facility] Address [address] [place] [address] Care Team Providers Care Promotions Coordinator Name Role Phone Ibrahima Fournier MD Primary Care Provider [phone] Enrique Griffith MD Unavailable [phone] Encounter Details Date Type Department Care Team (Late st Contact Info) Description 10/17/2016 Legacy OTTR Encounter Historical OTTR [address] [place] [address] Antione Romano APRN [address] [facility] [address] [place] [phone] Social History Tobacco Use Types Packs/Day Years [...] 3U PRBCs and transferred to ICU at [facility]. On arrival he was actively [...] ORDERABLES Final R esult Performing Organization Address [facility] Co de Phone Number EXTERNAL LAB * OTTR LAB RESULTS (MANUAL) (10/16/2016 5:43 AM EST) External Estimated GFR 66.39 EXTERNAL LAB 10/16/2016 5:43 AM EST Narrative EXTERNAL LAB - 10/16/2016 6:29 AM EST Automated LAB Interface Historical Provider LAB BLOOD ORDERABLES Final R esult Performing Organization Address [facility] Co de Phone Number EXTERNAL LAB * OTTR LAB RESULTS (MANUAL) (10/16/2016 2:04 AM EST) External Estimated GFR 58.79 EXTERNAL LAB 10/16/2016 2:04 AM EST Narrative EXTERNAL LAB - 10/16/2016 2:48 AM EST Automated LAB Interface Historical Provider LAB BLOOD ORDERABLES Final R esult Performing Organization Address [facility] de Phone Number EXTERNAL LAB documented in this encounter Visit Diagnoses Not on filedocumented in this encounter Additional Health Concerns Infection Onset Date Last Indicated Resolved Time COVID-19 Rule-Out 11/08/2021 11/08/2021 11/08/2021 8:06 AM EDT documented as of this encounter Care Teams Promotions Coordinator Relationship Specialty Start [place] [address] PCP - General 12/25/20 Enrique Grfifith MD [address] [place] [phone] Referring Physician Nephrology 01/08/21 documented as of this encounter
--- OUTSIDE RECORDS SUMMARY | 2025-08-10 01:51 | XMS_ITS | Encounter Summary ---
Author Organization [facility] Address [address] [place] [address] Care Team Providers Care Applications Programmer Analyst Name Role Phone Ibrahima Fouriner MD Primary Care Provider [phone] Enrique Griffith MD Unavailable [phone] Encounter Details Date Type Department Care Team (Late st Contact Info) Description 10/28/2016 Legacy OTTR Encounter Historical OTTR [address] [place] [address] Antione Romano APRN [address] [facility] [address] [place] [phone] Social History Tobacco Use Types Packs/Day Years [...] multiple blood products, pressor requirements, etc. Pt now extubated. Passed swallow eval with [...] as of this encounter Care Teams Applications Programmer Analyst Relationship Specialty Start [place] [address] PCP - General 12/25/20 Enrique Griffith MD [address] [place] [address] Referring Physician Nephrology 01/08/21 documented as of this encounter
--- OUTSIDE RECORDS SUMMARY | 2025-08-10 01:51 | XMS_ITS | Encounter Summary ---
Author Organization [facility] Address [address] [place] [address] Care Team Providers Care Direct Care Specialist Name Role Phone Ibrahima Fournier MD Primary Care Provider [phone] Enrique Griffith MD Unavailable [phone] Encounter Details Date Type Department Care Team (Late st Contact Info) Description 10/14/2016 [facility] OTTR Encounter Historical OTTR [address] [place] [address] Shara Huff, LEGAL FILE CLERK, DNP [address] [facility] [address] [place] [address] Social History Tobacco Use Types Packs/Day Years [...] transfused 3U PRBCsand transferred to ICU at [facility]. On arrival he was actively [...] of this encounter Care Teams Direct Care Specialist Relationship Specialty Start [place] [address] PCP - General 12/25/20 Enrique Griffith MD [address] [place] [address] Referring Physician Nephrology 01/08/21 documented as of this encounter
--- OUTSIDE RECORDS SUMMARY | 2025-08-10 01:51 | XMS_ITS | Encounter Summary ---
Author Organization [facility] Address [address] [place] [address] Care Team Providers Care Associate Sales Representative Name Role Phone Ibrahima Fournier MD Primary Care Provider [phone] Enrique Griffith MD Unavailable [phone] Encounter Details Date Type Department Care Team (Late st Contact Info) Description 09/27/2016 [facility] OTTR Encounter Historical OTTR [address] [place] [address] Bridgett Márquez, RN [facility]OSPITAL LIVER [id number] [address] [place] [address] Social History Tobacco Use Types Packs/Day Years [...] of last labs and office notes to [phone]. Will do same. documented in this encounter Plan of Treatment Not on file documented as of this encounter Visit Diagnoses Not on filedocumented in this encounter Additional Health Concerns Infection Onset Date Last Indicated Resolved Time COVID-19 Rule-Out 11/08/2021 11/08/2021 11/08/2021 8:06 AM EDT documented as of this encounter Care Teams Associate Sales Representative Relationship Specialty Start [place] [address] PCP - General 12/25/20 Enrique Griffith MD [address] [place] [phone] Referring Physician Nephrology 01/08/21 documented as of this encounter
--- OUTSIDE RECORDS SUMMARY | 2025-08-10 01:51 | XMS_ITS | Clinical Summary ---
Author Organization [facility] Address [address] [place] [address] Care Team Providers Care Banding Machine Operator Name Role Phone Ibrahima Fournier MD Primary Care Provider [phone] Enrique Griffith MD Unavailable [phone] Allergies Active Allergy Reactions Criticality Noted Date Comments Codeine Anxiety Medium 06/02/2014 Tacrolimus Other - please docum ent in the comment field High 03/02/2021 Anxious feeling and muscle jerking. TOLERATED ENVARSUS BETTER THAN PROGRAF. Medications ergocalciferol (ergocalciferol) 1.25 MG (09667 UT) capsule Take 1 capsule (50,000 Units) [...] Active fluticasone (Flonase) 50 MCG/ACT nasal spray Rodessa 2 spray nasALLY once a day as [...] MG(Fe) tablet 3 Active Continuous Blood Gluc Research Executive (Dexcom G7 Research Executive) device USE DIRECTED by 3 Active Continuous Blood Gluc Sensor (Dexcom G7 Sensor) [facility] USE DIRECTED CHANGE every 10 DAYS 3 Active sodium zirconium cyclosilicate (Lokelma) 10 g packet Take 10 g by mouth 1 (one) time each day. 3 Active methocarbamol (Robaxin) 500 MG tablet TAKE ONE TABLET BY MOUTH FOUR TIMES DAILY (BEFORE MEALS AND AT BEDTIME) 3 Active Vitamin D3 1.25 MG (06965 UT) capsule take 1 Capsule by mouth [...] Glucose Sensor (FreeStyle Leonel 2 Plus Sensor) [facility] Active Active Problems Problem Noted Date Diagnosed Date History of liver transplant 07/18/20230 12/2022 Gastroesophageal reflux disease 07/18/2023 07/18/2023 Diabetes [...] of) liver, not elsewhere classified 10/25/2012 01/28/2021 Immunizations Immunization Administration Dates Next Due Hep [...] Mother Kimberly Alcohol abuse Sister 1 Nadya Donahue Cirrhosis Sister 2 Diabetes Sister 3 Nadya Relation Name Status Comments Father Aiden Stauffer Sr Father's Brother Edwar Stauffer Mother Kimberly Sister 1 Nadya Donahue Sister 2 Sister 3 Nadya Social History [...] Done Comments [facility]-Medicare Annual Wellness (AWV) 1975 [facility]-/Child/Adol SDOH Screenings 1974 Diabetes: Dental Exam 02/26/1984 [...] 2019 FIT 2019 FOBT 2019 Sigmoidoscopy 2019 [id number] Vaccine (3 - Moderna risk series) 10/26/2021 [...] , 11/08/2021, Additional history exists HPV Vaccines (No Doses Required) Completed [facility]-HIB Vaccines Aged Out No longer e [...] 1/2 Antibody/Antigen Screen (03/16/2023 1:57 PM EDT) HIV 1 & 2 Antibody/Antigen Screen Non [...] Resul t Performing Organization Address [facility] de Phone Number [facility] [address] [place] [address] * Hepatitis C Antibody (03/16/2023 1:57 PM EDT) Hepatitis C Antibody Negative Negative 03/16/2023 5:00 PM EDT [facility] Blood Venous blood specimen / Unknown Venipuncture / Unknown 03/16/2023 1:57 PM EDT 03/16/2023 4:17 PM EDT us Petrona Sheppard MD LAB BLOOD ORDERABLES Final Resul t Performing Organization Address [facility] de Phone Number [facility] [address] [place] [address] * (ABNORMAL) Hemoglobin A1c (01/28/2021 9:53 AM [...] Adults <6.0% Children and Adolescents <7.5% Source: [place] [employer]. Standards of medical care in diabetes,2017. Diabetes Care.2017:40 (suppl 1):S1-S135. HbA1c assay performed by an ion-exchange chromatography method that is certified traceable to the DCCT. Petrona Sheppard MD LAB BLOOD ORDERABLES Final Resul t [facility] [address] [place] [address] * COLONOSCOPY (10/20/2016) Anatomical Region Laterality Modality Endoscopy Narrative 10/20/2016 Ordered by an unspecified provider. Historical Provider GI PROCEDURE ORDERABLES Yoselin l Result from Last 3 Months or Most Recently Relevant to Health Maintenance Insurance Pam [id number] [place] [id number] [place] Pam GARCIA [place] [id number] [place] Advance Directives * Full Code (Latest Code Status on File) Date Activated Date Inactivated Comments 11/08/2021 4:49 AM 11/09/2021 10:10 PM Patient wan ts full resuscitative measures if needed Question Answer Comments Patient has decision-making capacity? Yes Care Teams Banding Machine Operator Relationship Specialty Start [place] [address] PCP - General 12/25/20 Enrique Griffith MD [address] [place] [address] Referring Physician Nephrology 01/08/21
--- OUTSIDE RECORDS SUMMARY | 2025-08-10 01:51 | XMS_ITS | Encounter Summary ---
Author Organization [facility] Address [address] [place] [address] Care Team Providers Care Bit Setter Name Role Phone Ibrahima Fouriner MD Primary Care Provider [phone] Enrique Griffith MD Unavailable [phone] Encounter Details Date Type Department Care Team (Late st Contact Info) Description 10/17/2016 [facility] OTTR Encounter Historical OTTR [address] [place] [address] Bridgett Márquez, RN [facility] [id number] [address] [place] [address] Social History Tobacco Use Types Packs/Day Years [...] documented as of this encounter Care Teams Bit Setter Relationship Specialty Start [place] [address] PCP - General 12/25/20 Enrique Griffith MD [address] [place] [phone] Referring Physician Nephrology 01/08/21 documented as of this encounter
--- OUTSIDE RECORDS SUMMARY | 2025-08-10 01:51 | XMS_ITS | Encounter Summary ---
Author Organization [facility] Address [address] [place] [address] Care Team Providers Care Hospice Entrance Attendant Name Role Phone Ibrahima Fournier MD Primary Care Provider [phone] Enrique Griffith MD Unavailable [phone] Encounter Details Date Type Department Care Team (Late st Contact Info) Description 10/19/2016 [facility] OTTR Encounter Historical OTTR [address] [place] [address] Shara Huff, SENIOR SALES ENGINEER, DNP [address] [facility] [address] [place] [address] Social History Tobacco Use Types Packs/Day Years [...] 3U PRBCs and transferred to ICU at [facility]. On arrival he was actively [...] ORDERABLES Final R esult Performing Organization Address City/[facility] Co de Phone Number EXTERNAL LAB * OTTR LAB RESULTS (MANUAL) (10/19/2016 2:12 AM EST) External Estimated GFR 72.32 EXTERNAL LAB 10/19/2016 2:12 AM EST Narrative EXTERNAL LAB - 10/19/2016 3:07 AM EST Automated LAB Interface Historical Provider LAB BLOOD ORDERABLES Final R esult Performing Organization Address [facility] de Phone Number EXTERNAL LAB * OTTR LAB RESULTS (MANUAL) (10/18/2016 2:29 PM EST) External Estimated GFR 72.32 EXTERNAL LAB 10/18/2016 2:29 PM EST Narrative EXTERNAL LAB - 10/18/2016 3:20 PM EST Automated LAB Interface Historical Provider LAB BLOOD ORDERABLES Final R esult Performing Organization Address [facility] de Phone Number EXTERNAL LAB * OTTR LAB RESULTS (MANUAL) (10/18/2016 10:15 AM EST) External Estimated GFR 70.23 EXTERNAL LAB 10/18/2016 10:1 5 AM EST Narrative EXTERNAL LAB - 10/18/2016 11:08 AM EST Automated LAB Interface Historical Provider LAB BLOOD ORDERABLES Final R esult Performing Organization Address [facility] Co de Phone Number EXTERNAL LAB * OTTR LAB RESULTS (MANUAL) (10/18/2016 2:09 AM EST) External Estimated GFR 62.92 EXTERNAL LAB 10/18/2016 2:09 AM EST Narrative EXTERNAL LAB - 10/18/2016 3:04 AM EST Automated LAB Interface Historical Provider LAB BLOOD ORDERABLES Final R esult Performing Organization Address City/[facility] Co de Phone Number EXTERNAL LAB documented in this encounter Visit Diagnoses Not on filedocumented in this encounter Additional Health Concerns Infection Onset Date Last Indicated Resolved Time COVID-19 Rule-Out 11/08/2021 11/08/2021 11/08/2021 8:06 AM EDT documented as of this encounter Care Teams Hospice Entrance Attendant Relationship Specialty Start [place] [address] PCP - General 12/25/20 Enrique Griffith MD [facility] [place] [phone] Referring Physician Nephrology 01/08/21 documented as of this encounter
--- OUTSIDE RECORDS SUMMARY | 2025-08-10 01:51 | XMS_ITS | Encounter Summary ---
Author Organization [facility] Address [address] [place] [address] Care Team Providers Care Nat Instructor Name Role Phone Ibrahima Fournier MD Primary Care Provider [phone] Enrique Griffith MD Unavailable [phone] Encounter Details Date Type Department Care Team (Late st Contact Info) Description 10/12/2016 [facility] OTTR Encounter Historical OTTR [address] [place] [address] Bridgett Márquez, RN [facility] LIVER [id number] [address] [place] [address] Social History Tobacco Use Types Packs/Day Years [...] patient. He is currently in ER at [facility]. He adv he had EGD last [...] documented as of this encounter Care Teams Nat Instructor Relationship Specialty Start [place] [address] PCP - General 12/25/20 Enrique Griffith MD [address] [place] [address] Referring Physician Nephrology 01/08/21 documented as of this encounter
--- OUTSIDE RECORDS SUMMARY | 2025-08-10 01:51 | XMS_ITS | Encounter Summary ---
Author Organization [facility] Address [address] [place] [address] Care Team Providers Care Fisher Crab Name Role Phone Ibrahima Fournier MD Primary Care Provider [phone] Enrique Griffith MD Unavailable [phone] Encounter Details Date Type Department Care Team (Late st Contact Info) Description 10/14/2016 [facility] OTTR Encounter Historical OTTR [address] [place] [address] Bridgett Márquez, RN [facility] [id number] [address] [place] [address] Social History Tobacco Use Types Packs/Day Years [...] ORDERABLES Final R esult Performing Organization Address [facility] de Phone Number EXTERNAL LAB * OTTR LAB RESULTS (MANUAL) (10/15/2016 6:05 PM EST) External Estimated GFR 59.77 EXTERNAL LAB 10/15/2016 6:05 PM EST Narrative EXTERNAL LAB - 10/15/2016 6:56 PM EST Automated LAB Interface Historical Provider LAB BLOOD ORDERABLES Final R esult Performing Organization Address [facility] Phone Number EXTERNAL LAB * OTTR LAB RESULTS (MANUAL) (10/15/2016 1:59 PM EST) External Estimated GFR 58.79 EXTERNAL LAB 10/15/2016 1:59 PM EST Narrative EXTERNAL LAB - 10/15/2016 2:46 PM EST Automated LAB Interface Historical Provider LAB BLOOD ORDERABLES Final R esult Performing Organization Address [facility] de Phone Number EXTERNAL LAB * OTTR LAB RESULTS (MANUAL) (10/15/2016 10:36 AM EST) External Estimated GFR 63.47 EXTERNAL LAB 10/15/2016 10:3 6 AM EST Narrative EXTERNAL LAB - 10/15/2016 11:28 AM EST Automated LAB Interface Historical Provider LAB BLOOD ORDERABLES Final R esult Performing Organization Address [facility] Co de Phone Number EXTERNAL LAB * OTTR LAB RESULTS (MANUAL) (10/15/2016 6:35 AM EST) External Estimated GFR 56.45 EXTERNAL LAB 10/15/2016 6:35 AM EST Narrative EXTERNAL LAB - 10/15/2016 7:23 AM EST Automated LAB Interface Historical Provider LAB BLOOD ORDERABLES Final R esult Performing Organization Address [facility] Co de Phone Number EXTERNAL LAB * OTTR LAB RESULTS (MANUAL) (10/15/2016 1:58 AM EST) External Estimated GFR 59.28 EXTERNAL LAB 10/15/2016 1:58 AM EST Narrative EXTERNAL LAB - 10/15/2016 2:52 AM EST Automated LAB Interface Historical Provider LAB BLOOD ORDERABLES Final R esult Performing Organization Address [facility] de Phone Number EXTERNAL LAB * OTTR LAB RESULTS (MANUAL) (10/14/2016 10:53 PM EST) External Estimated GFR 59.77 EXTERNAL LAB 10/14/2016 10:5 3 PM EST Narrative EXTERNAL LAB - 10/14/2016 11:37 PM EST Automated LAB Interface Historical Provider LAB BLOOD ORDERABLES Final R esult Performing Organization Address [facility] Co de Phone Number EXTERNAL LAB * OTTR LAB RESULTS (MANUAL) (10/14/2016 6:52 PM EST) External Estimated GFR 65.79 EXTERNAL LAB 10/14/2016 6:52 PM EST Narrative EXTERNAL LAB - 10/14/2016 7:44 PM EST Automated LAB Interface Historical Provider LAB BLOOD ORDERABLES Final R esult Performing Organization Address [facility] Co de Phone Number EXTERNAL LAB * OTTR LAB RESULTS (MANUAL) (10/14/2016 2:07 PM EST) External Estimated GFR 50.39 EXTERNAL LAB 10/14/2016 2:07 PM EST Narrative EXTERNAL LAB - 10/14/2016 3:44 PM EST Automated LAB Interface Historical Provider LAB BLOOD ORDERABLES Final R esult Performing Organization Address [facility] de Phone Number EXTERNAL LAB * OTTR LAB RESULTS (MANUAL) (10/14/2016 12:21 PM EST) External Estimated GFR 48.30 EXTERNAL LAB 10/14/2016 12:2 1 PM EST Narrative EXTERNAL LAB - 10/14/2016 1:33 PM EST Automated LAB Interface Historical Provider LAB BLOOD ORDERABLES Final R esult Performing Organization Address [facility] de Phone Number EXTERNAL LAB * OTTR LAB RESULTS (MANUAL) (10/14/2016 10:33 AM EST) External Estimated GFR 53.47 EXTERNAL LAB 10/14/2016 10:3 3 AM EST Narrative EXTERNAL LAB - 10/14/2016 11:58 AM EST Automated LAB Interface Historical Provider LAB BLOOD ORDERABLES Final R esult Performing Organization Address [facility] de Phone Number EXTERNAL LAB * OTTR LAB RESULTS (MANUAL) (10/14/2016 9:20 AM EST) External Estimated GFR 57.37 EXTERNAL LAB 10/14/2016 9:20 AM EST Narrative EXTERNAL LAB - 10/14/2016 10:27 AM EST Automated LAB Interface Historical Provider LAB BLOOD ORDERABLES Final R esult Performing Organization Address [facility] de Phone Number EXTERNAL LAB * OTTR LAB RESULTS (MANUAL) (10/14/2016 6:31 AM EST) External Estimated GFR 61.84 EXTERNAL LAB 10/14/2016 6:31 AM EST Narrative EXTERNAL LAB - 10/14/2016 7:46 AM EST Automated LAB Interface Historical Provider LAB BLOOD ORDERABLES Final R esult Performing Organization Address [facility] Co de Phone Number EXTERNAL LAB * OTTR LAB RESULTS (MANUAL) (10/14/2016 5:05 AM EST) External Estimated GFR 65.79 EXTERNAL LAB 10/14/2016 5:05 AM EST Narrative EXTERNAL LAB - 10/14/2016 6:22 AM EST Automated LAB Interface [facility] Provider LAB BLOOD ORDERABLES Final R esult Performing Organization Address City/[facility]/ZIP Co de Phone Number EXTERNAL LAB * OTTR LAB RESULTS (MANUAL) (10/14/2016 1:51 AM EST) External Estimated GFR 68.26 EXTERNAL LAB 10/14/2016 1:51 AM EST Narrative EXTERNAL LAB - 10/14/2016 6:26 AM EST Automated LAB Interface Historical Provider LAB BLOOD ORDERABLES Final R esult Performing Organization Address City/[facility]/ZIP Co de Phone Number EXTERNAL LAB documented in this encounter Visit Diagnoses Not on filedocumented in this encounter Additional Health Concerns Infection Onset Date Last Indicated Resolved Time COVID-19 Rule-Out 11/08/2021 11/08/2021 11/08/2021 8:06 AM EDT documented as of this encounter Care Teams Fisher Crab Relationship Specialty [place] [address] PCP - General 12/25/20 Enrique Griffith MD [address] [place] [address] Referring Physician Nephrology 01/08/21 documented as of this encounter
--- OUTSIDE RECORDS SUMMARY | 2025-08-10 01:51 | XMS_ITS | Encounter Summary ---
Author Organization [facility] Address [address] [place] [address] Care Team Providers Care Assistant Editor Name Role Phone Ibrahima Fournier MD Primary Care Provider [phone] Enrique Griffith MD Unavailable [phone] Encounter Details Date Type Department Care Team (Late st Contact Info) Description 09/22/2016 [facility] OTTR Encounter Historical OTTR [address] [place] [address] Bridgett Márquez, RN [facility] [id number] [address] [place] [address] Social History Tobacco Use Types Packs/Day Years [...] as of this encounter Care Teams Assistant Editor Relationship Specialty Start [place] [address] PCP - General 12/25/20 Enrique Griffith MD [facility] [place] [address] Referring Physician Nephrology 01/08/21 documented as of this encounter
--- OUTSIDE RECORDS SUMMARY | 2025-08-10 01:51 | XMS_ITS | Encounter Summary ---
Author Organization [facility] Address [address] [place] [address] Care Team Providers Care Tear Down Man Name Role Phone Ibrahima Fournier MD Primary Care Provider [phone] Enrique Griffith MD Unavailable [phone] Encounter Details Date Type Department Care Team (Late st Contact Info) Description 10/30/2016 Legacy OTTR Encounter Historical OTTR [address] [place] [address] Bridgett Márquez, RN [facility] LIVER [id number] [address] [place] [address] Social History Tobacco Use Types Packs/Day Years [...] documented as of this encounter Care Teams Tear Down Man Relationship Specialty Start [place] [address] PCP - General 12/25/20 Enrique Griffith MD [address] [place] [phone] Referring Physician Nephrology 01/08/21 documented as of this encounter
--- OUTSIDE RECORDS SUMMARY | 2025-08-10 01:51 | XMS_ITS | Encounter Summary ---
Author Organization [facility] Address [address] [place] [address] Care Team Providers Care Seal Delivery Vehicle Officer Name Role Phone Ibrahima Fournier MD Primary Care Provider [phone] Enrique Griffith MD Unavailable [phone] Encounter Details Date Type Department Care Team (Late st Contact Info) Description 10/26/2016 [facility] OTTR Encounter Historical OTTR [address] [place] [address] Sandrita Ferguson, FUNNEL COATER [address] [facility] [address] [place] [id number] Social History Tobacco Use Types Packs/Day Years [...] and transferred to ICU at [facility]. On arrival he was actively [...] ORDERABLES Final R esult Performing Organization Address City/[facility] Co de Phone Number EXTERNAL LAB * OTTR LAB RESULTS (MANUAL) (10/26/2016 2:26 AM EDT) External Estimated GFR 113.78 EXTERNAL LAB 10/26/2016 2:26 AM EDT Narrative EXTERNAL LAB - 10/26/2016 3:29 AM EDT Automated LAB Interface Historical Provider LAB BLOOD ORDERABLES Final R esult Performing Organization Address [facility] Co de Phone Number EXTERNAL LAB * OTTR LAB RESULTS (MANUAL) (10/25/2016 4:00 AM EDT) Pathologist [facility] External Estimated GFR 99.16 EXTERNAL LAB 10/25/2016 4:00 AM EDT Narrative EXTERNAL LAB - 10/25/2016 3:16 AM EDT Automated LAB Interface Historical Provider LAB BLOOD ORDERABLES Final R esult Performing Organization Address City/[facility] Co de Phone Number EXTERNAL LAB documented in this encounter Visit Diagnoses Not on filedocumented in this encounter Additional Health Concerns Infection Onset Date Last Indicated Resolved Time COVID-19 Rule-Out 11/08/2021 11/08/2021 11/08/2021 8:06 AM EDT documented as of this encounter Care Teams Seal Delivery Vehicle Officer Relationship Specialty Start [place] [address] PCP - General 12/25/20 Enrique Griffith MD [address] [place] [address] Referring Physician Nephrology 01/08/21 documented as of this encounter
--- OUTSIDE RECORDS SUMMARY | 2025-08-10 01:52 | XMS_ITS | Encounter Summary ---
Author Organization [facility] Address [address] [place] [address] Care Team Providers Care Endbander Name Role Phone Ibrahima Fournier MD Primary Care Provider [phone] Enrique Griffith MD Unavailable [phone] Encounter Details Date Type Department Care Team (Late st Contact Info) Description 10/27/2023 Orders Only External Location [address] [place] [address] Provider, External Social History Tobacco Use Types [...] in a nursing home (including now)? No 10/09/2023 Housing Stability [...] documented as of this encounter Care Teams Endbander Relationship Specialty Start [place] [address] PCP - General 12/25/20 Enrique Griffith MD [address] [place] [phone] Referring Physician Nephrology 01/08/21 documented as of this encounter
--- OUTSIDE RECORDS SUMMARY | 2025-08-10 01:52 | XMS_ITS | Encounter Summary ---
Author Organization [facility] Address [address] [place] [address] Care Team Providers Care Sub Prior Name Role Phone Ibrahima Fournier MD Primary Care Provider [phone] Enrique Griffith MD Unavailable [phone] Encounter Details Date Type Department Care Team (Late st Contact Info) Description 11/14/2016 Legacy OTTR Encounter Historical OTTR [address] [place] [address] Bridgett Márquez, RN [facility] LIVER [id number] [address] [place] [address] Social History Tobacco Use Types Packs/Day Years [...] documented as of this encounter Care Teams Sub Prior Relationship Specialty Start [place] [address] PCP - General 12/25/20 Enrique Griffith MD [address] [place] [phone] Referring Physician Nephrology 01/08/21 documented as of this encounter
--- OUTSIDE RECORDS SUMMARY | 2025-08-10 01:52 | XMS_ITS | Encounter Summary ---
Author Organization [facility] Address [address] [place] [address] Care Team Providers Care Mattress Inspector Name Role Phone Ibrahima Fournier MD Primary Care Provider [phone] Enrique Griffith MD Unavailable [phone] Encounter Details Date Type Department Care Team (Late st Contact Info) Description 11/08/2016 Legacy OTTR Encounter Historical OTTR [address] [place] [address] Maren Friedman MD [address] [facility] [address] [place] [address] Social History Tobacco Use Types [...] report CT of the abdomen done in [facility] Continue carvedilol, history of hypertension, blood pressure [...] documented as of this encounter Care Teams Mattress Inspector Relationship Specialty Start [place] [address] PCP - General 12/25/20 Enrique Griffith MD [address] [place] [phone] Referring Physician Nephrology 01/08/21 documented as of this encounter
--- OUTSIDE RECORDS SUMMARY | 2025-08-10 01:52 | XMS_ITS | Encounter Summary ---
Author Organization [employer] ([place], [place], [place], [place], [place]) Address [address] [place] [address] Care Team Providers Care Edging Catcher Name Role Phone Edgar Fournier MD Primary Care Provider [phone] Edgar Fournier MD Primary Care Provider [phone] Encounter Details Date Type Department Care Team (Late st Contact Info) Description 04/13/2020 Transcribed Document [facility] [place] [facility] [place] [address] ProviderAmrit MD [address] [place] [address] Social History Tobacco Use Types Packs/Day [...] at home: Medicines ??? Take or apply pcko-jxb-zztdvrp and prescription medicines only as told by [...] cannot use soap and water, use hand outreach professional. ? Change your bandage as told by [...] 05/09/2009 Document Revised: 03/12/2019 Document Reviewed: 03/12/2019 ElseKlee Data System Patient Education ? 2020 [employer] documented in this encounter Plan of Treatment Not on file documented as of this encounter Visit Diagnoses Not on filedocumented in this encounter Care Teams Edging Catcher Relationship Specialty Start Date End Date Edgar Fournier MD [address] [place] [address] PCP - General Family Medicine 01/17/23 06/26/24 Edgar Fournier MD [address] [place] [address] PCP - General Family Medicine 06/27/24 documented as of this encounter
--- OUTSIDE RECORDS SUMMARY | 2025-08-10 01:52 | XMS_ITS | Encounter Summary ---
Author Organization [facility] Address [address] [place] [address] Care Team Providers Care Lime Boiler Name Role Phone Ibrahima Fournier MD Primary Care Provider [phone] Enrique Griffith MD Unavailable [phone] Encounter Details Date Type Department Care Team (Late st Contact Info) Description 11/01/2016 [facility] OTTR Encounter Historical OTTR [address] [place] [address] [place] [address] Social History Tobacco Use Types Packs/Day [...] documented as of this encounter Care Teams Lime Boiler Relationship Specialty Start [place] [address] PCP - General 12/25/20 Enrique Griffith MD [address] [place] [address] Referring Physician Nephrology 01/08/21 documented as of this encounter
--- OUTSIDE RECORDS SUMMARY | 2025-08-10 01:52 | XMS_ITS | Encounter Summary ---
Author Organization [facility] Address [address] [place] [address] Care Team Providers Care License Examiner Name Role Phone Ibrahima Fournier MD Primary Care Provider [phone] Enrique Griffith MD Unavailable [phone] Encounter Details Date Type Department Care Team (Late st Contact Info) Description 09/14/2016 [facility] OTTR Encounter Historical OTTR [address] [place] [address] Vera Rosales [address] Social History Tobacco Use Types Packs/Day Years Used Date Smoking Tobacco: Never Assessed Sex and Gender Information Value Date Recorded Sex Assigned at Not on file Legal Sex Male 6:10 PM EDT Gender Identity Not on file Sexual Orientation Straight 03/02/2021 10 :04 AM EDT documented as of this encounter Miscellaneous Notes * Progress Notes - Vera Rosales - 09/14/2016 3:13 PM EST [facility] radiology called - Mr Stauffer had his [...] documented as of this encounter Care Teams License Examiner Relationship Specialty Start [place] [address] PCP - General 12/25/20 Enrique Griffith MD [facility] [place] [address] Referring Physician Nephrology 01/08/21 documented as of this encounter
--- OUTSIDE RECORDS SUMMARY | 2025-08-10 01:52 | XMS_ITS | Encounter Summary ---
Author Organization [employer] ([place], [place], [place], [place], [place]) Address [address] [place] [address] Care Team Providers Care Senior Electrical Designer Name Role Phone Onesimo Garcia MD Primary Care Provider [phone] Onesimo Garcia MD Primary Care Provider [phone] Encounter Details Date Type Department Care Team (Late st Contact Info) Description 04/13/2020 Transcribed Document [facility] Family [facility] [place] [address] ProviderAmrit MD [address] [place] [address] Social History Tobacco Use Types Packs/Day [...] Amrit ProviderMD - 04/13/2020 1:47 PM CDT [facility] [place] [address] AIDEN ROLLINS JR :1975 Visit Time:04/13/2020 Your Visit Summary Your Care Team Admitting Physician - DAPHNEY STREET [facility] Attending Physician - DAPHNEY ST[address] MD-NEP Primary [...] at home: Medicines ??? Take or apply wwhj-qqo-wkznlxw and prescription medicines only as told by [...] cannot use soap and water, use hand pump erector helper. ? Change your bandage as told by [...] 05/09/2009 Document Revised: 03/12/2019 Document Reviewed: 03/12/2019 E[employer]o Patient Education ?? 2020 [employer]. Emergency Awareness and Preventative Care STROKE is [...] Assistance with quitting is available by contacting 0-118-SEND-NOW. This is a free resource providing counseling, [...] was given the opportunity to ask questions. Patient/Stained Glass Installer Name: Patient/Stained Glass Installer Signature: Relationship to Patient: Clinician/Hospital Stained Glass Installer Signature: Date: documented in this encounter Plan of Treatment Not on file documented as of this encounter Visit Diagnoses Not on filedocumented in this encounter Care Teams Senior Electrical Designer Relationship Specialty Start Date End Date Onesimo Garcia MD [address] [place], [place] [address] PCP - General Family Medicine 01/17/23 06/26/24 Onesimo Garcia MD [address] [place] [address] PCP - General Family Medicine 06/27/24 documented as of this encounter
--- OUTSIDE RECORDS SUMMARY | 2025-08-10 01:52 | XMS_ITS | Encounter Summary ---
Author Organization [employer] ([place], [place], [place], [place], [place]) Address [address] [place] [address] Care Team Providers Care Milk Inspector Name Role Phone Onesimo Garcia MD Primary Care Provider [phone] Onesimo Garcia MD Primary Care Provider [phone] Encounter Details Date Type Department Care Team (Late st Contact Info) Description 04/13/2020 Transcribed Document [facility] [place] [facility] [place] [address] ProviderAmrit MD [address] [place] [address] Social History Tobacco Use Types Packs/Day [...] Amrit ProviderMD - 04/13/2020 1:53 PM CDT [facility] [place] [address] AIDEN ROLLINS JR :1975 Visit Time:04/13/2020 Your Visit Summary Your Care Team Admitting Physician - DAPHNEY STREET [facility] Attending Physician - DAPHNEY STREET MD-NEP Primary [...] at home: Medicines ??? Take or apply isqk-xyi-yolgrou and prescription medicines only as told by [...] cannot use soap and water, use hand project engineer chemicals. ? Change your bandage as told by [...] 05/09/2009 Document Revised: 03/12/2019 Document Reviewed: 03/12/2019 PharmAbcine Patient Education ?? 2020 [email or web address]. Emergency Awareness and Preventative Care STROKE is [...] Assistance with quitting is available by contacting 6-807-UKVN-NOW. This is a free resource providing counseling, [...] was given the opportunity to ask questions. Patient/Figure Model Name: Patient/Figure Model Signature: Relationship to Patient: Clinician/Hospital Figure Model Signature: Date: documented in this encounter Plan of Treatment Not on file documented as of this encounter Visit Diagnoses Not on filedocumented in this encounter Care Teams Milk Inspector Relationship Specialty Start Date End Date Onesimo Garcia MD [address] [place], [place] [address] PCP - General Family Medicine 01/17/23 06/26/24 Onesimo Garcia MD [address] [place] [address] PCP - General Family Medicine 06/27/24 documented as of this encounter
--- OUTSIDE RECORDS SUMMARY | 2025-08-10 01:52 | XMS_ITS | Encounter Summary ---
Author Organization [facility] Address [address] [place] [address] Care Team Providers Care Institutional Aide Name Role Phone Ibrahima Fournier MD Primary Care Provider [phone] Enrique Griffith MD Unavailable [phone] Encounter Details Date Type Department Care Team (Late st Contact Info) Description 09/15/2016 [facility] OTTR Encounter Historical OTTR [address] [place] [address] Bridgett Márquez, RN [facility] [id number] [address] [place] [address] Social History Tobacco Use Types Packs/Day Years [...] documented as of this encounter Care Teams Institutional Aide Relationship Specialty [place] [address] PCP - General 12/25/20 Enrique Griffith MD [address] [place] [address] Referring Physician Nephrology 01/08/21 documented as of this encounter
--- OUTSIDE RECORDS SUMMARY | 2025-08-10 01:52 | XMS_ITS | Encounter Summary ---
Author Organization [employer] ([place], [place], [place], [place], [place]) Address [address] [place] [address] Care Team Providers Care Paraprofessional Aide Teacher Name Role Phone Edgar Fournier MD Primary Care Provider [phone] Edgar Fournier MD Primary Care Provider [phone] Encounter Details Date Type Department Care Team (Late st Contact Info) Description 04/13/2020 Transcribed Document [facility] [facility] [place] [address] ProviderAmrit MD [address] [place] [address] Social History Tobacco Use Types Packs/Day [...] 04/13/2020 13:53 EDT by ALMA DELIA CASANOVA marketing administrator Documentation Discharge Date/Time : 04/13/2020 14:00 EDT [...] - 04/13/2020 13:53 EDT Electronically signed by [facility], [facility] Conversion Drop Wire Stringer Cerner at 12/04/2022 5:08 PM CDT documented in this encounter Plan of Treatment Not on file documented as of this encounter Visit Diagnoses Not on filedocumented in this encounter Care Teams Paraprofessional Aide Teacher Relationship Specialty Start Date End Date Edgar Fournier MD [address] [place] [address] PCP - General Family Medicine 01/17/23 06/26/24 Edgar Fournier MD [address] [place] [address] PCP - General Family Medicine 06/27/24 documented as of this encounter
--- OUTSIDE RECORDS SUMMARY | 2025-08-10 01:52 | XMS_ITS | Encounter Summary ---
Author Organization [facility] Address [address] [place] [address] Care Team Providers Care Locum Tenens Name Role Phone Ibrahima Fournier MD Primary Care Provider [phone] Enrique Griffith MD Unavailable [phone] Encounter Details Date Type Department Care Team (Late st Contact Info) Description 11/02/2016 [facility] OTTR Encounter Historical OTTR [address] [place] [address] Provider[address] [place] [address] Social History Tobacco Use Types Packs/Day [...] documented as of this encounter Care Teams Locum Tenens Relationship Specialty Start [place] [address] PCP - General 12/25/20 Enrique Griffith MD [facility] [place] [address] Referring Physician Nephrology 01/08/21 documented as of this encounter
--- OUTSIDE RECORDS SUMMARY | 2025-08-10 01:52 | XMS_ITS | Clinical Summary ---
Author Organization [facility] Address [address] [place] [address] Care Team Providers Care Cognos Bi Developer Name Role Phone Edgar Fournier MD Primary Care Provider [phone] Allergies Active Allergy Reactions Criticality Noted Date [...] Blood Gluc Sensor (FreeStyle Leonel 2 Sensor) [facility] USE DIRECTED CHANGE EVERY 14 DAYS DIRECTED 09/07/19 24 Active cholecalciferol (VITAMIN D3) 1.25 MG (70307 UT) capsule Take 1 capsule by mouth [...] history exists Medical Devices Implanted Type Area Harbor Pilot Device Identifier Shelf Expiration Date Model / Serial / Lot Kt Seal Hemos Abs Floseal Matrx Fast/Prep 10ml - [id number] Implanted:Qty : 1 on 04/29/2020 by Yinka Garnica MD at [facility] Implant N/A: Spine Lumbar [facility] 08/18/2021 [id number] / / [id number] Hemost Abs Surgifoam Sz100 8x12 10mm - [id number] Implanted:Qty : 1 on 04/29/2020 by Yinka Garnica MD at [facility] Implant N/A: Spine Lumbar [employer] [...] ve Non-Reacti ve 10/27/2023 6:02 AM EDT [facility] Hep A IgM Non-Reacti ve Non-Reacti ve 10/27/2023 6:02 AM EDT [facility] Hep B C IgM Non-Reacti ve Non-Reacti ve 10/27/2023 6:02 AM EDT [facility] Hepatitis C Ab Non-Reacti ve Non-Reacti ve 10/27/2023 6:02 AM EDT [facility] Blood Venipuncture / Unknown 10/27/2023 5:00 AM EDT 10/27/2023 5:29 AM EDT Narrative [facility] - 10/27/2023 6:02 AM EDT Results may be falsely decreased if patient taking Biotin. us Jennifer Davison MD LAB BLOOD ORDERABLES Final Resul t [facility]
[address] [place] [address], * Lipid Panel (09/26/2023) Blood Claudia Calles MD LAB BLOOD ORDERABLES Final R esult Performing Organization Address [facility]/ZIP Co de Phone Number [facility]
[address] [place] [address], * (ABNORMAL) Hemoglobin A1c (08/12/2023 5:59 AM EST) Hemoglobin A1C 6.50(H) 4.80 - 5.60 % 08/12/2023 6:49 AM EST [facility] Blood Venipuncture / Unknown 08/12/2023 5:59 AM EST 08/12/2023 6:31 AM EST Narrative [facility] - 08/12/2023 6:49 AM EST Hemoglobin A1C Ranges: Increased Risk for Diabetes 5.7% to 6.4% Diabetes >= 6.5% Diabetic Goal < 7.0% Kaila Jhaveri MD LAB BLOOD ORDERABLES Fin al Result Performing Organization Address [facility] de Phone Number [facility]
[address] [place] [address], * (ABNORMAL) Occult Blood X 1, Stool - Stool, Per Rectum (05/02/2020 12:49 PM EDT) Fecal Occult Blood Positive( A) Negative DISK DIFFUSION 05/02/2020 1:50 PM EDT [facility] Stool Specimen from rectum / Unknown Collection / Unknown 05/02/2020 12:49 PM EDT 05/02/2020 1:01 PM EDT Odette Grace MD BODY FLUIDS AND STOOLS ORDERABLE S Final Result Performing Organization Address [facility] Co de Phone Number [facility]
[address] [place] [address], from Last 3 Months or Most Recently Relevant to Health [place] [address] MEDICAID [place] [facility] MEDICARE ADVANTAGE Advance Directives * CPR [...] pulse or is breathing): Full Care Teams Cognos Bi Developer Relationship Specialty Start Date End Date Edgar Fournier MD [address] [place] [address] PCP - General Family Medicine 04/27/20
--- OUTSIDE RECORDS SUMMARY | 2025-08-10 01:52 | XMS_ITS | Encounter Summary ---
Author Organization [employer] ([place], [place], [place], [place], [place]) Address [address] [place] [address] Care Team Providers Care Hoop Punch And Coiler Operator Helper Name Role Phone Edgar Fournier MD Primary Care Provider [phone] Edgar Fournier MD Primary Care Provider [phone] Encounter Details Date Type Department Care Team (Late st Contact Info) Description 04/13/2020 Transcribed Document [facility] [place] Family Medicine [facility] [place] [address] ProviderAmrit MD [address] [place] [id number] Social History Tobacco Use Types Packs/Day Years [...] Dialysis catheter removal Procedural MD: Dr. Guzmán Chin Strap Cutter: Mary Chao PA-C; Maile Connolly PA-C Sedation: None Findings: Successful removal of dialysis catheter Complications: None EBL: Minimal Specimen(s) Removed: None Full report to follow. documented in this encounter Plan of Treatment Not on file documented as of this encounter Visit Diagnoses Not on filedocumented in this encounter Care Teams Hoop Punch And Coiler Operator Helper Relationship Specialty Start Date End Date Edgar Fournier MD [address] [place] [address] PCP - General Family Medicine 01/17/23 06/26/24 Edgar Fournier MD [address] [place] [address] PCP - General Family Medicine 06/27/24 documented as of this encounter
--- OUTSIDE RECORDS SUMMARY | 2025-08-10 01:52 | XMS_ITS | Encounter Summary ---
Author Organization [employer] ([place], [place], [place], [place], [place]) Address [address] [place] [address] Care Team Providers Care Wildlife Officer Name Role Phone Onesimo Garcia MD Primary Care Provider [phone] Onesimo Garcia MD Primary Care Provider [phone] Encounter Details Date Type Department Care Team (Late st Contact Info) Description 04/13/2020 Transcribed Document [facility] [place] [facility] [place] [address] ProviderAmrit MD [address] [place] [address] Social History Tobacco Use Types Packs/Day [...] Amrit ProviderMD - 04/13/2020 1:52 PM CDT [facility] [place] [address] AIDEN ROLLINS JR :1975 Visit Time:04/13/2020 Your Visit Summary Your Care Team Admitting Physician - DAPHNEY STREET MD-[facility] Attending Physician - DAPHNEY STREET MD-NEP [...] at home: Medicines ??? Take or apply afjr-kaf-qcfnspg and prescription medicines only as told by [...] cannot use soap and water, use hand cotton ball bagger. ? Change your bandage as told by [...] 05/09/2009 Document Revised: 03/12/2019 Document Reviewed: 03/12/2019 [employer] - Dein Lernprogramm im Leben Patient Education ?? 2020 [email or web address]. Emergency Awareness and Preventative Care STROKE is [...] Assistance with quitting is available by contacting 0-371-WRTN-NOW. This is a free resource providing counseling, [...] was given the opportunity to ask questions. Patient/Waste Duster Name: Patient/Waste Duster Signature: Relationship to Patient: Clinician/Hospital Waste Duster Signature: Date: documented in this encounter Plan of Treatment Not on file documented as of this encounter Visit Diagnoses Not on filedocumented in this encounter Care Teams Wildlife Officer Relationship Specialty Start Date End Date Onesimo Garcia MD [address] [place], [place] [address] PCP - General Family Medicine 01/17/23 06/26/24 Onesimo Garcia MD [address] [place] [address] PCP - General Family Medicine 06/27/24 documented as of this encounter
--- OUTSIDE RECORDS SUMMARY | 2025-08-10 01:52 | XMS_ITS | Encounter Summary ---
Author Organization [facility] Address [address] [place] [address] Care Team Providers Care Ludlow Machine Operator Name Role Phone Ibrahima Fournier MD Primary Care Provider [phone] Enrique Griffith MD Unavailable [phone] Encounter Details Date Type Department Care Team (Late st Contact Info) Description 09/19/2016 [facility] OTTR Encounter Historical OTTR [address] [place] [address] Bridgett Márquez, RN [facility] [id number] [address] [place] [address] Social History Tobacco Use Types Packs/Day Years [...] He adv he is inpatient again at [facility]. He is trying to see if they [...] EXTERNAL LAB - 09/19/2016 12:49 PM EST [facility] us Historical Provider LAB BLOOD ORDERABLES [...] 64.04 EXTERNAL LAB 09/18/2016 2:15 PM EST [facility] EXTERNAL LAB - 09/19/2016 12:48 PM EST [facility] us Historical Provider LAB BLOOD ORDERABLES Final R esult EXTERNAL LAB documented in this encounter Visit Diagnoses Not on filedocumented in this encounter Additional Health Concerns Infection Onset Date Last Indicated Resolved Time COVID-19 Rule-Out 11/08/2021 11/08/2021 11/08/2021 8:06 AM EDT documented as of this encounter Care Teams Ludlow Machine Operator Relationship Specialty [place] [address] PCP - General 12/25/20 Enrique Griffith MD [address] [place] [address] Referring Physician Nephrology 01/08/21 documented as of this encounter
--- OUTSIDE RECORDS SUMMARY | 2025-08-10 01:52 | XMS_ITS | Encounter Summary ---
Author Organization [facility] Address [address] [place] [address] Care Team Providers Care Government Relations Analyst Name Role Phone Ibrahima Fournier MD Primary Care Provider [phone] Enrique Griffith MD Unavailable [phone] Encounter Details Date Type Department Care Team (Late st Contact Info) Description 09/22/2016 Legacy OTTR Encounter Historical OTTR [address] [place] [address] Bridgett Márquez, RN [facility] LIVER [id number] [address] [place] [address] Social History Tobacco Use Types Packs/Day Years [...] antibiotics and fluids. [facility] Patient also needs to have repeat EGD NIELS. PHd Dr. Chauhan [phone] l msg with bleach boiler filler. documented in this encounter Plan of Treatment Not on file documented as of this encounter Visit Diagnoses Not on filedocumented in this encounter Additional Health Concerns Infection Onset Date Last Indicated Resolved Time COVID-19 Rule-Out 11/08/2021 11/08/2021 11/08/2021 8:06 AM EDT documented as of this encounter Care Teams Government Relations Analyst Relationship Specialty Start [place] [address] PCP - General 12/25/20 Enrique Griffith MD [address] [place] [address] Referring Physician Nephrology 01/08/21 documented as of this encounter
--- OUTSIDE RECORDS SUMMARY | 2025-08-10 01:52 | XMS_ITS | Encounter Summary ---
Author Organization [facility] Address [address] [place] [address] Care Team Providers Care Director Of Programming Name Role Phone Ibrahima Fournier MD Primary Care Provider [phone] Enrique Griffith MD Unavailable [phone] Encounter Details Date Type Department Care Team (Late st Contact Info) Description 11/01/2016 Legacy OTTR Encounter Historical OTTR [address] [place] [address] Bridgett Márquez, RN [facility] [id number] [address] [place] [address] Social History Tobacco Use Types Packs/Day Years [...] of this encounter Care Teams Director Of Programming Relationship Specialty Start [place] [address] PCP - General 12/25/20 Enrique Griffith MD [address] [place] [address] Referring Physician Nephrology 01/08/21 documented as of this encounter
--- OUTSIDE RECORDS SUMMARY | 2025-08-10 01:52 | XMS_ITS | Encounter Summary ---
Author Organization [facility] Address [facility] [place] [address] Care Team Providers Care Division Officer Weapons Department Name Role Phone Maile Valles RN Unavailable Unavail able Estephania Sharif PharmD Unavailable Christine Edgar Tolentino MD Primary Care Provider [phone] Khari Lema MD Unavailable [phone] Source Comments This information has been disclosed [...] release of HIV test results or diagnoses. [id number] Health Encounter Details Date Type Department Care Team (Late st Contact Info) Description 06/16/2025 Results Follow-Up [facility] Cardiac Cook Specialty [address] [place] [address] Amber Galdamez RN Cardiac Cath Social History Tobacco Use Types Packs/Day Years Used Date Smoking Tobacco: Never Smokeless Tobacco: Never Alcohol Use Standard Drinks/Week Comments Never 0 (1 standard drink = 0.6 oz pur e alcohol) [facility] Utilities Answer Date Recorded In the past 12 months has th e Robert Applebaum MD, [employer], oil, or water company threatened to shut [...] time in the past 12 m [facility], were you homeless or living in a care home (including now)? No 06/12/2025 Yearly Questionnaire Answer [...] documented as of this encounter Care Teams Division Officer Weapons Department Relationship Specialty Start Date End Date Edgar Fournier [place] [phone] PCP - General 06/12/25 Maile Valles, RN Txp Post Coordinator Transplant Hepatology 11/07/17 Estephania Sharif, DarrianD Pharmacist Pharmacist 11/11/19 Khari Lema MD [address] [facility] [address] [place] [address] Txp Silk Screen Printer Transplant Hepatology 05/29/25 documented as of this encounter
[2025-08-10 01:53] VITALS: BP 122/90; PULSE 119; RESP 18; TEMP 37.1; O2SAT 98; BMI 41.3
--- OUTSIDE RECORDS SUMMARY | 2025-08-10 01:53 | XMS_ITS | Encounter Summary ---
Author Organization [facility] Address [address] [place] [address] Care Team Providers Care Audio Video Mechanic Name Role Phone Ibrahima Fournier MD Primary Care Provider [phone] Enrique Griffith MD Unavailable [phone] Encounter Details Date Type Department Care Team (Late st Contact Info) Description 03/03/2017 [facility] Encounter Historical OTTR [address] [place] [address] Bridgett Márquez RN [facility] LIVER [id number] [address] [place] [address] Social History Tobacco Use Types Packs/Day Years [...] He adv he was in ED at [facility] last 2 nights with abdominal pain. [...] as of this encounter Care Teams Audio Video Mechanic Relationship Specialty Start [place] [address] PCP - General 12/25/20 Enrique Griffith MD [address] [place] [address] Referring Physician Nephrology 01/08/21 documented as of this encounter
--- OUTSIDE RECORDS SUMMARY | 2025-08-10 01:53 | XMS_ITS | Encounter Summary ---
Author Organization [facility] Address [address] [place] [address] Care Team Providers Care Box Puller Name Role Phone Ibrahima Fournier MD Primary Care Provider [phone] Enrique Griffith MD Unavailable [phone] Encounter Details Date Type Department Care Team (Late st Contact Info) Description 01/11/2017 [facility] OT[facility] Encounter Historical OTTR [address] [place] [address] Bridgett Márquez, RN [facility] [id number] [address] [place] [address] Social History Tobacco Use Types Packs/Day Years [...] is going to have GP find local unleavened dough mixer. Will give rx for diabetic shoes when he is in clinic next week. documented in this encounter Plan of Treatment Not on file documented as of this encounter Visit Diagnoses Not on filedocumented in this encounter Additional Health Concerns Infection Onset Date Last Indicated Resolved Time COVID-19 Rule-Out 11/08/2021 11/08/2021 11/08/2021 8:06 AM EDT documented as of this encounter Care Teams Box Puller Relationship Specialty Start [place] [address] PCP - General 12/25/20 Enrique Griffith MD [address] [place] [phone] Referring Physician Nephrology 01/08/21 documented as of this encounter
--- OUTSIDE RECORDS SUMMARY | 2025-08-10 01:53 | XMS_ITS | Encounter Summary ---
Author Organization [facility] Address [address] [place] [address] Care Team Providers Care Poultry Feed Supervisor Name Role Phone Ibrahima Fournier MD Primary Care Provider [phone] Enrique Griffith MD Unavailable [phone] Encounter Details Date Type Department Care Team (Late st Contact Info) Description 06/05/2017 [facility] OT[facility] Encounter Historical OTTR [address] [place] [address] Bridgett Márquez, RN [facility] LIVER [id number] [address] [place] [address] Social History Tobacco Use Types Packs/Day Years [...] documented as of this encounter Care Teams Poultry Feed Supervisor Relationship Specialty Start [place] [address] PCP - General 12/25/20 Enrique Griffith MD [address] [place] [phone] Referring Physician Nephrology 01/08/21 documented as of this encounter
--- OUTSIDE RECORDS SUMMARY | 2025-08-10 01:53 | XMS_ITS | Encounter Summary ---
Author Organization [facility] Address [address] [place] [address] Care Team Providers Care Aromatherapist Name Role Phone Ibrahima Fournier MD Primary Care Provider [phone] Enrique Griffith MD Unavailable [phone] Encounter Details Date Type Department Care Team (Late st Contact Info) Description 05/30/2017 [facility] OT[facility] Encounter Historical OTTR [address] [place] [address] Carla Hammonds [address] Social History Tobacco Use Types Packs/Day Years [...] documented as of this encounter Care Teams Aromatherapist Relationship Specialty Start [place] [address] PCP - General 12/25/20 Enrique Griffith MD [address] [place] [address] Referring Physician Nephrology 01/08/21 documented as of this encounter
--- OUTSIDE RECORDS SUMMARY | 2025-08-10 01:53 | XMS_ITS | Patient Health Record ---
Author Organization [facility] Address [address] [place] [address] Care Team Providers Care Brim Stiffener Name Role Phone AARTI BRITO Unavailable [phone] Reason For Referral No Information Medications Medication [...] ONCE A WEEK Active Vitamin D (Ergocalciferol) 44560 UNIT 1 capsule Orally EVERY , , [...] Notes Problem Anemia in chronic kidney disease (792558545) Anemia in chronic kidney disease (D63.1) Active confirmed Problem Hyperkalemia (73614180) Hyperkalemia (E87.5) Active confirmed Problem End stage renal disease (61069874) End stage renal disease (N18.6) Active confirmed Problem Benign hypertension (61892348) Benign hypertension (I10) Active confirmed Problem Diarrhea of presumed infectious origin (50435499) Diarrhea of presumed infectious origin (A09) Active confirmed Problem Dependence on hemodialysis (440308370) Dependence on hemodialysis (Z99.2) Active confirmed Plan Of Treatment No Information Insurance Providers Payer Name Payer Address Payer Phone Subscriber Number Group Number Insured Name Patient Relationship to Insured Coverage Start Date Coverage End Date BCBS MEDICARE [address] [place] [address] [id number] LEONCIO ROLLINS Self - patient is the insured Medicaid of [place] [address] [place] [address] [phone] [id number] LEONCIO ROLLINS Self - patient is the insured Medical (General) History Medical History History ICD Code ANEMIA, CKD, HYPERKALEMIA, END STAGE ESTELITA AL DISEASE, HERNIA HYPERLIPIDEMIA, HTN, ANXIETY, ALLERGIES, LOW TESTOSTERONE DIABETES, GERD, Surgical History Surgery Date(Month/Year) TUNNEL FISTULA 09/14/2022 LIVER TRANSPLANT
--- OUTSIDE RECORDS SUMMARY | 2025-08-10 01:53 | XMS_ITS | Encounter Summary ---
Author Organization [facility] Address [address] [place] [address] Care Team Providers Care Bisque Kiln Drawer Name Role Phone Ibrahima Fournier MD Primary Care Provider [phone] Enrique Griffith MD Unavailable [phone] Encounter Details Date Type Department Care Team (Late st Contact Info) Description 04/14/2017 [facility] OT[facility] Encounter Historical OTTR [address] [place] [address] Fabiana lCark MD Social History Tobacco Use Types Packs/Day [...] as of this encounter Care Teams Bisque Kiln Drawer Relationship Specialty Start [place] [address] PCP - General 12/25/20 Enrique Griffith MD [address] [place] [address] Referring Physician Nephrology 01/08/21 documented as of this encounter
--- OUTSIDE RECORDS SUMMARY | 2025-08-10 01:53 | XMS_ITS | Encounter Summary ---
Author Organization [facility] Address [address] [place] [address] Care Team Providers Care Academic Coach Name Role Phone Ibrahima Fournier MD Primary Care Provider [phone] Enrique Griffith MD Unavailable [phone] Encounter Details Date Type Department Care Team (Late st Contact Info) Description 07/03/2017 [facility] OT[facility] Encounter Historical OTTR [address] [place] [address] Bridgett Márquez, RN [facility]OSPITAL LIVER [id number] [address] [place] [address] Social History Tobacco Use Types Packs/Day Years [...] documented as of this encounter Care Teams Academic Coach Relationship Specialty Start [place] [address] PCP - General 12/25/20 Enrique Griffith MD [address] [place] [address] Referring Physician Nephrology 01/08/21 documented as of this encounter
--- OUTSIDE RECORDS SUMMARY | 2025-08-10 01:53 | XMS_ITS | Encounter Summary ---
Author Organization [facility] Address [address] [place] [address] Care Team Providers Care Outside Sales Inspector Name Role Phone Ibrahima Fournier MD Primary Care Provider [phone] Enrique Griffith MD Unavailable [phone] Encounter Details Date Type Department Care Team (Late st Contact Info) Description 01/27/2017 [facility] OT[facility] Encounter Historical OTTR [address] [place] [address] Bridgett Márquez, RN [facility] LIVER [id number] [address] [place] [address] Social History Tobacco Use Types Packs/Day Years [...] of this encounter Care Teams Outside Sales Inspector Relationship Specialty Start [place] [address] PCP - General 12/25/20 Enrique Griffith MD [address] [place] [address] Referring Physician Nephrology 01/08/21 documented as of this encounter
--- OUTSIDE RECORDS SUMMARY | 2025-08-10 01:53 | XMS_ITS | Encounter Summary ---
Author Organization [facility] Address [address] [place] [address] Care Team Providers Care Graduate School Dean Name Role Phone Ibrahima Fournier MD Primary Care Provider [phone] Enrique Griffith MD Unavailable [phone] Encounter Details Date Type Department Care Team (Late st Contact Info) Description 07/14/2017 [facility] OTTR Encounter Historical OTTR [address] [place] [address] Raquel Toribio [address] Social History Tobacco Use Types Packs/Day Years [...] documented as of this encounter Care Teams Graduate School Dean Relationship Specialty Start [place] [address] PCP - General 12/25/20 Enrique Griffith MD [address] [place] [address] Referring Physician Nephrology 01/08/21 documented as of this encounter
--- OUTSIDE RECORDS SUMMARY | 2025-08-10 01:53 | XMS_ITS | Encounter Summary ---
Author Organization [facility] Address [facility]note 2[facility]0 [place] [address] Care Team Providers Care Commercial Crabber Name Role Phone Edgar Fournier MD Primary Care Provider [phone] Maile Valles RN Unavailable Unavail able Jack Ordoñez MD Unavailable [phone] Estephania Sharif PharmD Unavailable Christine vailable System, Provider Not In Primary Care Provider Un available Edgar Fournier MD Primary Care Provider [phone] Khari Lema MD Unavailable [phone] Stan Moise RN Unavailable Unavail able Source [...] release of HIV test results or diagnoses. [id number] Health Encounter Details Date Type Department Care Team (Late st Contact Info) Description 01/27/2020 Orders Only [facility] Outreach Lab Test Referral Center [address] [place] [phone] Altagracia Maria A Liver replaced by transplant [...] - 1.10 mg/dL 01/27/2020 4:00 PM EDT [facility] Plasma specimen (specimen) 01/27/2020 1:57 PM EDT 01/27/2020 2:51 PM EDT Counts include 234 beds at the [facility] - 01/27/2020 4:00 PM EDT Standing labs monthly. Please fax results to [phone] Jack Ordoñez MD LAB BLOOD ORDERABLES Final Re sult Performing Organization Address [facility] Co de Phone Number [facility] [address] * (ABNORMAL) Cyclosporine level (01/27/2020 1:57 PM EDT) Cyclosporine, Blood 86(L) 100 - 400 ng/mL 01/28/2020 2:15 PM EDT [facility] Comment: Detection limit: 30 ng/mL. Performed via chemiluminescent microparticle immunoassay on the [employer] Machine Back Tender i1000. Whole blood specimen (specimen) 01/27/2020 1:57 PM EDT 01/27/2020 2:51 PM EDT Counts include 234 beds at the [facility] - 01/28/2020 2:15 PM EDT Standing lab; draw frequency will vary based on condition. Fax results to [phone]. Call critical values to [phone]. Jack Ordoñez MD LAB BLOOD ORDERABLES Final Re sult Performing Organization Address [facility] Co de Phone Number [facility] [address] documented in this encounter Visit Diagnoses [...] as of this encounter Care Teams Commercial Crabber Relationship Specialty Start Date End Date Edgar Fournier MD [address] [place] [address] [place] [address] PCP - General 08/18/17 06/23/21 System, Provider Not In PCP - General 06/24/21 12/21/21 Edgar Fournier MD [address] [place] [address] [place] [address] PCP - General 06/12/25 Maile Valles, JANA Txp Post Coordinator Transplant Hepatology 11/07/17 Jack Ordoñez MD Consulting Physician Transplant Hepatology 01/05/18 Estephania Sharif, DarrianD Pharmacist Pharmacist 11/11/19 Khari Lema MD [address] [facility] [address] [place] [address] Txp Mortgage Advisor Transplant Hepatology 05/29/25 Stan Moise, RN Registered Nurse 06/26/25 documented as of this encounter
--- OUTSIDE RECORDS SUMMARY | 2025-08-10 01:53 | XMS_ITS | Encounter Summary ---
Author Organization [facility] Address [address] [place] [address] Care Team Providers Care Exchange Administrator Name Role Phone Ibrahima Fournier MD Primary Care Provider [phone] Enrique Griffith MD Unavailable [phone] Encounter Details Date Type Department Care Team (Late st Contact Info) Description 06/22/2017 [facility] OTTR Encounter Historical OTTR [address] [place] [address] Vera Rosales [address] Social History Tobacco Use Types Packs/Day Years [...] as of this encounter Care Teams Exchange Administrator Relationship Specialty Start [place] [address] PCP - General 12/25/20 Enrqiue Griffith MD [address] [place] [address] Referring Physician Nephrology 01/08/21 documented as of this encounter
--- OUTSIDE RECORDS SUMMARY | 2025-08-10 01:53 | XMS_ITS | Encounter Summary ---
Author Organization [facility] Address [address] [place] [address] Care Team Providers Care Cloth Printing Back Tender Name Role Phone Ibrahima Fournier MD Primary Care Provider [phone] Enrique Griffith MD Unavailable [phone] Encounter Details Date Type Department Care Team (Late st Contact Info) Description 06/22/2017 [facility] OTTR Encounter Historical OTTR [address] [place] [address] Malou Gonzalez, RN [facility] [id number] [address] [place] [address] Social History Tobacco Use Types Packs/Day Years [...] relief. Pt unhappy with care provided at [facility]. Pt to come to ED for assessment. documented in this encounter Plan of Treatment Not on file documented as of this encounter Visit Diagnoses Not on filedocumented in this encounter Additional Health Concerns Infection Onset Date Last Indicated Resolved Time COVID-19 Rule-Out 11/08/2021 11/08/2021 11/08/2021 8:06 AM EDT documented as of this encounter Care Teams Cloth Printing Back Tender Relationship Specialty Start [place] [address] PCP - General 12/25/20 Enrique Griffith MD [address] [place] [address] Referring Physician Nephrology 01/08/21 documented as of this encounter
--- OUTSIDE RECORDS SUMMARY | 2025-08-10 01:53 | XMS_ITS | Encounter Summary ---
Author Organization [facility] Address [address] [place] [address] Care Team Providers Care Winding Lathe Operator Name Role Phone Ibrahima Fournier MD Primary Care Provider [phone] Enrique Griffith MD Unavailable [phone] Encounter Details Date Type Department Care Team (Late st Contact Info) Description 06/07/2017 [facility] OTTR Encounter Historical OTTR [address] [place] [address] Bridgett Márquez, RN [facility] [id number] [address] [place] [address] Social History Tobacco Use Types Packs/Day Years [...] patient meet with surgeon during follow-up visit [id number]. Msg to AG to add on surgeon visit to 06-30-17 visit. documented in this encounter Plan of Treatment Not on file documented as of this encounter Visit Diagnoses Not on filedocumented in this encounter Additional Health Concerns Infection Onset Date Last Indicated Resolved Time COVID-19 Rule-Out 11/08/2021 11/08/2021 11/08/2021 8:06 AM EDT documented as of this encounter Care Teams Winding Lathe Operator Relationship Specialty Start [place] [address] PCP - General 12/25/20 Enrique Griffith MD [address] [place] [address] Referring Physician Nephrology 01/08/21 documented as of this encounter
--- OUTSIDE RECORDS SUMMARY | 2025-08-10 01:53 | XMS_ITS | Clinical Summary ---
Author Organization [facility] ([place], [place], [place], [place], [place]) Address [address] [place] [address] Care Team Providers Care Fruit Checker Name Role Phone Edgar Fournier MD Primary Care Provider [phone] Allergies Active Allergy Reactions Criticality Noted Date [...] been transmitting cardiomems - will work with [facility] to trouble shoot - aim to drive pressures down Pain 05/14/2024 Hyperkalemia 05/07/2024 AVF (arteriovenous fistula) 08/11/2023 Gastroesophageal reflux disease 07/18/2023 Obesity, Class III, BMI 40-49.9 (morbid obesity) 11/08/2021 Overview (05/14/2024): Lifestyle modification including weight loss was discussed again during this encounter. History of liver transplant 04/28/2020 Overview (05/14/2024): Active follow-up at [place], [place] Hyperlipidemia 04/13/2020 Type 2 diabetes mellitus [...] living situation today? I have a [facility] place to live 08/05/2024 Think about [...] Isolated 0 08/05 Educational Attainment Answer Date Ojrge rded Do you speak a language other than [place] at [facility]? No 08/05/2024 Do you want help [...] Nonreactive Nonreactive, Equivocal 08/06/2024 2:53 AM EST [facility] Hep B C IgM Nonreactive Nonreactive 08/06/2024 2:53 AM EST [facility] Hepatitis B surface antigen Nonreactive Nonreactive, Equivocal 08/06/2024 2:53 AM EST [facility] Hepatitis C Ab Nonreactive Nonreactive, Equivocal 08/06/2024 2:53 AM EST [facility] Blood Venipuncture / Unknown 08/05/2024 11:24 PM EST 08/05/2024 11:29 PM EST [facility] - 08/06/2024 2:53 AM EST [...] MD LAB BLOOD ORDERABLES Final Resu lt [facility] [address] [id number], [facility] [phone] from Last 3 Months or Most Recently Relevant to Health Maintenance Insurance MEDICAID [id number] Member Subscriber Plan / Payer (Ef fective 2023-Present) Name:Aiden Stauffer Jr. Relation to Subscriber:Self Name:Aiden Stauffer Jr. Payer ID:[id number] Group ID:Not on file Type:Not on file [address] ACC[address] HMO [address] Advance Directives For more information, please contact: [phone] Documents on File Type Date Recorded Patient Audit Manager Expl anation Advance Directives and Livin g [...] 12:52 PM 05/13/2024 12:59 PM Care Teams Fruit Checker Relationship Specialty Start Date End Date Edgar Fournier MD [address] [place] [address] PCP - General Family Medicine 06/27/24
--- OUTSIDE RECORDS SUMMARY | 2025-08-10 01:53 | XMS_ITS | Encounter Summary ---
Author Organization [facility] Address [address] [place] [address] Care Team Providers Care Cable Former Name Role Phone Ibrahima Fournier MD Primary Care Provider [phone] Enrique Griffith MD Unavailable [phone] Encounter Details Date Type Department Care Team (Late st Contact Info) Description 05/31/2017 [facility] OTTR Encounter Historical OTTR [address] [place] [address] Roxi Vazquez [facility] [address] [place] [address] Social History Tobacco Use Types Packs/Day Years [...] as of this encounter Care Teams Cable Former Relationship Specialty Start [place] [address] PCP - General 12/25/20 Enrique Griffith MD [address] [place] [address] Referring Physician Nephrology 01/08/21 documented as of this encounter
--- OUTSIDE RECORDS SUMMARY | 2025-08-10 01:53 | XMS_ITS | Encounter Summary ---
Author Organization [facility] Address [address] [place] [address] Care Team Providers Care Lead Process Engineer Name Role Phone Ibrahima Fournier MD Primary Care Provider [phone] Enrique Griffith MD Unavailable [phone] Encounter Details Date Type Department Care Team (Late st Contact Info) Description 04/18/2017 [facility] OTTR Encounter Historical OTTR [address] [place] [address] Erika Truong, RN [facility] [id number] [address] [place] [address] Social History Tobacco Use Types Packs/Day Years [...] - 04/18/2017 1:53 PM EDT orders in [facility] for TIPS revision - sedation form in OTTR all docs documented in this encounter Plan of Treatment Not on file documented as of this encounter Visit Diagnoses Not on filedocumented in this encounter Additional Health Concerns Infection Onset Date Last Indicated Resolved Time COVID-19 Rule-Out 11/08/2021 11/08/2021 11/08/2021 8:06 AM EDT documented as of this encounter Care Teams Lead Process Engineer Relationship Specialty Start [place] [address] PCP - General 12/25/20 Enrique Griffith MD [facility] [place] [address] Referring Physician Nephrology 01/08/21 documented as of this encounter
--- OUTSIDE RECORDS SUMMARY | 2025-08-10 01:53 | XMS_ITS | Encounter Summary ---
Author Organization [facility] Address [address] [place] [address] Care Team Providers Care Database Support Name Role Phone Ibrahima Fournier MD Primary Care Provider [phone] Enrique Griffith MD Unavailable [phone] Encounter Details Date Type Department Care Team (Late st Contact Info) Description 06/21/2017 Legacy OTTR Encounter Historical OTTR [address] [place] [address] Vera Rosales [address] Social History Tobacco Use Types Packs/Day Years [...] Mr Stauffer request. Received verbal confirmation from [facility] that records were received. documented in this encounter Plan of Treatment Not on file documented as of this encounter Visit Diagnoses Not on filedocumented in this encounter Additional Health Concerns Infection Onset Date Last Indicated Resolved Time COVID-19 Rule-Out 11/08/2021 11/08/2021 11/08/2021 8:06 AM EDT documented as of this encounter Care Teams Database Support Relationship Specialty [place] [address] PCP - General 12/25/20 Enrique Griffith MD [address] [place] [address] Referring Physician Nephrology 01/08/21 documented as of this encounter
--- OUTSIDE RECORDS SUMMARY | 2025-08-10 01:53 | XMS_ITS | Encounter Summary ---
Author Organization [facility] Address [address] [place] [address] Care Team Providers Care Filenet P8 Developer Name Role Phone Ibrahima Fournier MD Primary Care Provider [phone] Enrique Griffith MD Unavailable [phone] Encounter Details Date Type Department Care Team (Late st Contact Info) Description 06/21/2017 Legacy OTTR Encounter Historical OTTR [address] [place] [address] Vera Rosales [address] Social History Tobacco Use Types Packs/Day Years [...] if you have any questions about this [phone]. documented in this encounter Plan of Treatment Not on file documented as of this encounter Visit Diagnoses Not on filedocumented in this encounter Additional Health Concerns Infection Onset Date Last Indicated Resolved Time COVID-19 Rule-Out 11/08/2021 11/08/2021 11/08/2021 8:06 AM EDT documented as of this encounter Care Teams Filenet P8 Developer Relationship Specialty Start [place] [address] PCP - General 12/25/20 Enrique Griffith MD [address] [place] [address] Referring Physician Nephrology 01/08/21 documented as of this encounter
--- OUTSIDE RECORDS SUMMARY | 2025-08-10 01:53 | XMS_ITS | Encounter Summary ---
Author Organization [facility] Address [address] [place] [address] Care Team Providers Care Handle Turner Name Role Phone Ibrahima Fournier MD Primary Care Provider [phone] Enrique Griffith MD Unavailable [phone] Encounter Details Date Type Department Care Team (Late st Contact Info) Description 04/28/2017 Legacy OTTR Encounter Historical OTTR [address] [place] [address] Christa Knowles [address] Social History Tobacco Use Types Packs/Day Years [...] EDT DOS 05/04/17 Op Cpt TIPS Revision 85049, NPR per online tool and automated phone system. Nurse and IR notified via email. documented in this encounter Plan of Treatment Not on file documented as of this encounter Visit Diagnoses Not on filedocumented in this encounter Additional Health Concerns Infection Onset Date Last Indicated Resolved Time COVID-19 Rule-Out 11/08/2021 11/08/2021 11/08/2021 8:06 AM EDT documented as of this encounter Care Teams Handle Turner Relationship Specialty Start [place] [address] PCP - General 12/25/20 Enrique Griffith MD [address] [place] [phone] Referring Physician Nephrology 01/08/21 documented as of this encounter
--- OUTSIDE RECORDS SUMMARY | 2025-08-10 01:53 | XMS_ITS | Encounter Summary ---
Author Organization [facility] Address [address] [place] [address] Care Team Providers Care Health Policy Nurse Name Role Phone Ibrahima Fournier MD Primary Care Provider [phone] Enrique Griffith MD Unavailable [phone] Encounter Details Date Type Department Care Team (Late st Contact Info) Description 06/05/2017 Legacy OTTR Encounter Historical OTTR [address] [place] [address] Bridgett Márquez, RN [facility] [id number] [address] [place] [address] Social History Tobacco Use Types Packs/Day Years [...] as of this encounter Care Teams Health Policy Nurse Relationship Specialty Start [place] [address] PCP - General 12/25/20 Enrique Griffith MD [facility] [address] Referring Physician Nephrology 01/08/21 documented as of this encounter
--- OUTSIDE RECORDS SUMMARY | 2025-08-10 01:53 | XMS_ITS | Encounter Summary ---
Author Organization [facility] Address [address] [place] [address] Care Team Providers Care Derrick Hand Name Role Phone Ibrahima Fournier MD Primary Care Provider [phone] Enrique Griffith MD Unavailable [phone] Encounter Details Date Type Department Care Team (Late st Contact Info) Description 04/14/2017 [facility] OTTR Encounter Historical OTTR [address] [place] [address] Shara Huff, COORDINATOR OF REHABILITATION SERVICES, DNP [address] [facility] [address] [place] [address] Social History Tobacco Use Types Packs/Day Years [...] as of this encounter Care Teams Derrick Hand Relationship Specialty Start [place] [address] PCP - General 12/25/20 Enrique Griffith MD [address] [place] [address] Referring Physician Nephrology 01/08/21 documented as of this encounter
--- OUTSIDE RECORDS SUMMARY | 2025-08-10 01:53 | XMS_ITS | Encounter Summary ---
Author Organization [facility] Address [address] [place] [address] Care Team Providers Care Derrick Hand Name Role Phone Ibrahima Fournier MD Primary Care Provider [phone] Enrique Griffith MD Unavailable [phone] Encounter Details Date Type Department Care Team (Late st Contact Info) Description 05/17/2017 [facility] OTTR Encounter Historical OTTR [address] [place] [address] Bridgett Márquez, RN [facility] [id number] [address] [place] [address] Social History Tobacco Use Types Packs/Day Years [...] [place] [address] PCP - General 12/25/20 Enrique Griffith MD [address] [place] [phone] Referring Physician Nephrology 01/08/21 documented as of this encounter
--- OUTSIDE RECORDS SUMMARY | 2025-08-10 01:53 | XMS_ITS | Encounter Summary ---
Author Organization [facility] Address [address] [place] [address] Care Team Providers Care Bias Cutter Helper Name Role Phone Ibrahima Fournier MD Primary Care Provider [phone] Enrique Griffith MD Unavailable [phone] Encounter Details Date Type Department Care Team (Late st Contact Info) Description 05/10/2017 [facility] OTTR Encounter Historical OTTR [address] [place] [address] Christa Knowles [address] Social History Tobacco Use Types Packs/Day Years [...] Cpt US Abd Doppler w/ [employer] 11768, 03046, both NPR per [place] online pre-cert tool and automated system. Nurse, APM and Rad updated. documented in this encounter Plan of Treatment Not on file documented as of this encounter Visit Diagnoses Not on filedocumented in this encounter Additional Health Concerns Infection Onset Date Last Indicated Resolved Time COVID-19 Rule-Out 11/08/2021 11/08/2021 11/08/2021 8:06 AM EDT documented as of this encounter Care Teams Bias Cutter Helper Relationship Specialty Start [place] [address] PCP - General 12/25/20 Enrique Griffith MD [address] [place] [address] Referring Physician Nephrology 01/08/21 documented as of this encounter
--- OUTSIDE RECORDS SUMMARY | 2025-08-10 01:53 | XMS_ITS | Encounter Summary ---
Author Organization [facility] Address [address] [place] [address] Care Team Providers Care Media Associate Name Role Phone Ibrahima Fournier MD Primary Care Provider [phone] Enrique Griffith MD Unavailable [phone] Encounter Details Date Type Department Care Team (Late st Contact Info) Description 02/08/2017 Legacy OTTR Encounter Historical OTTR [address] [place] [address] Bridgett Márquez, RN [facility] [id number] [address] [place] [address] Social History Tobacco Use Types Packs/Day Years [...] is still weak. Will obtain records from [facility]. He adv he was declined at for Txp, due to insurance. documented in this encounter Plan of Treatment Not on file documented as of this encounter Visit Diagnoses Not on filedocumented in this encounter Additional Health Concerns Infection Onset Date Last Indicated Resolved Time COVID-19 Rule-Out 11/08/2021 11/08/2021 11/08/2021 8:06 AM EDT documented as of this encounter Care Teams Media Associate Relationship Specialty Start Date End Date Ibrahima Fournier MD [id number] PCP - General 12/25/20 Enrique Griffith MD [address] [place] [phone] Referring Physician Nephrology 01/08/21 documented as of this encounter
--- OUTSIDE RECORDS SUMMARY | 2025-08-10 01:53 | XMS_ITS | Encounter Summary ---
Author Organization [facility] Address [address] [place] [address] Care Team Providers Care Materials Analyst Name Role Phone Ibrahima Fournier MD Primary Care Provider [phone] Enrique Griffith MD Unavailable [phone] Encounter Details Date Type Department Care Team (Late st Contact Info) Description 06/02/2017 Legacy OTTR Encounter Historical OTTR [address] [place] [address] Roxi Vazquez [facility] [address] [place] [address] Social History Tobacco Use Types Packs/Day Years [...] documented as of this encounter Care Teams Materials Analyst Relationship Specialty Start [place] [address] PCP - General 12/25/20 Enrique Griffith MD [address] [place] [address] Referring Physician Nephrology 01/08/21 documented as of this encounter
--- OUTSIDE RECORDS SUMMARY | 2025-08-10 01:53 | XMS_ITS ---
Author Organization [facility] Address [address] [place] [address] Care Team Providers Care Stripper And Printer Name Role Phone Maile Valles RN Unavailable Unavail able Estephania Sharif PharmD Unavailable Christine [place] Tolentino MD Primary Care Provider [phone] Khari Lema MD Unavailable [phone] Stan Moise RN Unavailable Unavail able Transplant Episode Liver Recipient [facility] ([place], [place]) - [facility] Organ Received: Liver Transplanted on 10/08/2017 Marked as Active Follow-up on 10/08/2017 Liver CoordinatorMaile Valles RN Phone: N/A Fax: N/A Email: N/A [place] Organ Diagnosis Organ Primary Contributory Liver Cirrhosis: [...] N/A N/A N/A Khari Lema MD Txp Instructional Writer [phone] N/A [place] Fournier MD Referring Physician [phone] N/A N/A Events Post-Transplant Pre-Transplant Admitted: 10/07/2017 Referred: 06/22/2017 Transplanted: 10/08/2017 Evaluation began: 8 Discharged: 10/27/2017 Committee: 08/29/2017 Center waitlisted: 8 Dialysis History Dialysis History Start End Type Comments Center 11/28/2022 Home Hemodialysis [phone] [facility] 09/26/2019 11/25/2022 Hemodialysis [facility] Dialysis Center Information Center Phone Fax Address [facility] [phone] [address] [facility], [address] [place] [address] [facility] [phone] [place] [address]
--- OUTSIDE RECORDS SUMMARY | 2025-08-10 01:53 | XMS_ITS | Encounter Summary ---
Author Organization [facility] Address [address] [place] [address] Care Team Providers Care Instrument Inspector Name Role Phone Ibrahima Fournier MD Primary Care Provider [phone] Enrique Griffith MD Unavailable [phone] Encounter Details Date Type Department Care Team (Late st Contact Info) Description 05/30/2017 Legacy OTTR Encounter Historical OTTR [address] [place] [address] Roxi Vazquez [facility] [address] [place] [address] Social History Tobacco Use Types Packs/Day Years [...] documented as of this encounter Care Teams Instrument Inspector Relationship Specialty Start [place] [address] PCP - General 12/25/20 Enrique Griffith MD [address] [place] [address] Referring Physician Nephrology 01/08/21 documented as of this encounter
--- OUTSIDE RECORDS SUMMARY | 2025-08-10 01:53 | XMS_ITS | Encounter Summary ---
Author Organization [facility] Address [facility] [place] [address] Care Team Providers Care Photography Colorist Name Role Phone Maile Valles RN Unavailable Unavail able Estephania Sharif PharmD Unavailable Christine [place] Tolentino MD Primary Care Provider [phone] Khari Lema MD Unavailable [phone] Source Comments This information has been disclosed [...] release of HIV test results or diagnoses. [id number] Reason for Visit * Reason Comments Results Fax Results 1st Atte mpt Encounter Details Date Type Department Care Team (Late st Contact Info) Description 06/18/2025 Telephone [facility] Cardiology at [facility] Office [address] [place] [address] Lianet Mayen CNP [address] [place] [address] Results (Fax Results 1st Attempt ) Social History Tobacco Use Types Packs/Day Years Used Date Smoking Tobacco: Never Smokeless Tobacco: Never Alcohol Use Standard Drinks/Week Comments Never 0 (1 standard drink = 0.6 oz pur e alcohol) [facility] Utilities Answer Date Recorded In the [...] in a custodial (including now)? No 11/05/2023 Housing Stability Vital Sign Answer Gilbert e Recorded In the last 12 months, was t here a time when you were not able to pay the mortgage or rent on time? No 06/12/2025 In the past 12 months, how m any times have you moved where you were living? 0 06/12/2025 At any time in the past 12 m [facility], were you homeless or living in a custodial (including now)? No 06/12/2025 Yearly Questionnaire Answer [...] on 06/12 to be faxed to: Destination: [facility] Attn: Cardiology and Dr. Blackman Fax#: [phone] Pts appt if 06/19 May be reached if needed at [phone] (M). documented in this encounter Plan of Treatment Not on file documented as of this encounter Visit Diagnoses Not on filedocumented in this encounter Additional Health Concerns Assessment Noted Time PHQ-9 Depression Total Score: 0 12/06/19 18 3:00 PM EDT documented as of this encounter Care Teams Photography Colorist Relationship Specialty Start Date End Date [place] Fournier MD [address] [place] [address] PCP - General 06/12/25 Maile Valles, JANA Txp Post Coordinator Transplant Hepatology 11/07/17 Estephania Sharif, PharmD Pharmacist Pharmacist 11/11/19 Khari Lema MD [address] [facility] [address] [place] [address] Txp Buildings And Grounds Superintendent Transplant Hepatology 05/29/25 documented as of this encounter
--- OUTSIDE RECORDS SUMMARY | 2025-08-10 01:53 | XMS_ITS | Encounter Summary ---
Author Organization [facility] Address [address] [place] [address] Care Team Providers Care Operation Manager Name Role Phone Ibrahima Fournier MD Primary Care Provider [phone] Enrique Griffith MD Unavailable [phone] Encounter Details Date Type Department Care Team (Late st Contact Info) Description 07/19/2017 Legacy OTTR Encounter Historical OTTR [address] [place] [address] Christa Knowles [address] Social History Tobacco Use Types Packs/Day Years [...] Op Cot US Abd Doppler w/[employer] [id number], NPR per Michelle MDCD online pre-cert look [...] EXTERNAL LAB - 08/03/2017 2:33 PM EST [facility] us Historical Provider LAB BLOOD ORDERABLES Final R esult EXTERNAL LAB documented in this encounter Visit Diagnoses Not on filedocumented in this encounter Additional Health Concerns Infection Onset Date Last Indicated Resolved Time COVID-19 Rule-Out 11/08/2021 11/08/2021 11/08/2021 8:06 AM EDT documented as of this encounter Care Teams Operation Manager Relationship Specialty Start [place] [address] PCP - General 12/25/20 Enrique Griffith MD [address] [place] [address] Referring Physician Nephrology 01/08/21 documented as of this encounter
--- OUTSIDE RECORDS SUMMARY | 2025-08-10 01:53 | XMS_ITS | Encounter Summary ---
Author Organization [facility] Address [address] [place] [address] Care Team Providers Care Hvac Sales Engineer Name Role Phone Ibrahima Fournier MD Primary Care Provider [phone] Enrique Griffith MD Unavailable [phone] Encounter Details Date Type Department Care Team (Late st Contact Info) Description 06/30/2017 Legacy OTTR Encounter Historical OTTR [address] [place] [address] Jaren Naqvi [address] Social History Tobacco Use Types Packs/Day Years [...] as of this encounter Care Teams Hvac Sales Engineer Relationship Specialty Start [place] [address] PCP - General 12/25/20 Enrique Griffith MD [address] [place] [phone] Referring Physician Nephrology 01/08/21 documented as of this encounter
--- OUTSIDE RECORDS SUMMARY | 2025-08-10 01:53 | XMS_ITS | Encounter Summary ---
Author Organization [facility] Address [address] [place] [address] Care Team Providers Care Executive Communications Manager Name Role Phone Ibrahima Fournier MD Primary Care Provider [phone] Enrique Griffith MD Unavailable [phone] Encounter Details Date Type Department Care Team (Late st Contact Info) Description 04/18/2017 Legacy OTTR Encounter Historical OTTR [address] [place] [address] Erika Truong, RN [facility] [id number] [address] [place] [address] Social History Tobacco Use Types Packs/Day Years [...] as of this encounter Care Teams Executive Communications Manager Relationship Specialty [place] [address] PCP - General 12/25/20 Enrique Griffith MD [place] [address] Referring Physician Nephrology 01/08/21 documented as of this encounter
--- OUTSIDE RECORDS SUMMARY | 2025-08-10 01:53 | XMS_ITS | Encounter Summary ---
Author Organization [facility] Address [address] [place] [address] Care Team Providers Care Sack Cleaner Name Role Phone Ibrahima Fournier MD Primary Care Provider [phone] Enrique Griffith MD Unavailable [phone] Encounter Details Date Type Department Care Team (Late st Contact Info) Description 05/19/2017 Legacy OTTR Encounter Historical OTTR [address] [place] [address] Bridgett Márquez, RN [facility] [id number] [address] [place] [address] Social History Tobacco Use Types Packs/Day Years [...] EXTERNAL LAB - 05/19/2017 7:26 AM EDT [facility] us Historical Provider LAB BLOOD ORDERABLES Final R esult EXTERNAL LAB documented in this encounter Visit Diagnoses Not on filedocumented in this encounter Additional Health Concerns Infection Onset Date Last Indicated Resolved Time COVID-19 Rule-Out 11/08/2021 11/08/2021 11/08/2021 8:06 AM EDT documented as of this encounter Care Teams Sack Cleaner Relationship Specialty Start [place] [address] PCP - General 12/25/20 Enrique Griffith MD [address] [place] [address] Referring Physician Nephrology 01/08/21 documented as of this encounter
--- OUTSIDE RECORDS SUMMARY | 2025-08-10 01:53 | XMS_ITS | Encounter Summary ---
Author Organization [facility] Address [address] [place] [address] Care Team Providers Care Orientation And Mobility Instructor Name Role Phone Ibrahima Fournier MD Primary Care Provider [phone] Enrique Griffith MD Unavailable [phone] Encounter Details Date Type Department Care Team (Late st Contact Info) Description 04/19/2017 Legacy OTTR Encounter Historical OTTR [address] [place] [address] Roxi Vazquez [facility] [address] [place] [address] Social History Tobacco Use Types Packs/Day Years [...] documented as of this encounter Care Teams Orientation And Mobility Instructor Relationship Specialty Start [place] [address] PCP - General 12/25/20 Enrique Griffith MD [address] [place] [address] Referring Physician Nephrology 01/08/21 documented as of this encounter
--- OUTSIDE RECORDS SUMMARY | 2025-08-10 01:53 | XMS_ITS | Encounter Summary ---
Author Organization [facility] Address [address] [place] [address] Care Team Providers Care Speech Therapy Assistant Name Role Phone Ibrahima Fournier MD Primary Care Provider [phone] Enrique Griffith MD Unavailable [phone] Encounter Details Date Type Department Care Team (Late st Contact Info) Description 07/04/2017 Legacy OTTR Encounter Historical OTTR [address] [place] [address] Roxi Vazquez [facility] [address] [place] [address] Social History Tobacco Use Types Packs/Day Years [...] as of this encounter Care Teams Speech Therapy Assistant Relationship Specialty Start [place] [address] PCP - General 12/25/20 Enrique Griffith MD [address] [place] [address] Referring Physician Nephrology 01/08/21 documented as of this encounter
--- OUTSIDE RECORDS SUMMARY | 2025-08-10 01:53 | XMS_ITS | Encounter Summary ---
Author Organization [facility] Address [address] [place] [address] Care Team Providers Care Rubber Goods Assembler Name Role Phone Ibrahima Fournier MD Primary Care Provider [phone] Enrique Griffith MD Unavailable [phone] Encounter Details Date Type Department Care Team (Late st Contact Info) Description 02/22/2017 Legacy OTTR Encounter Historical OTTR [address] [place] [address] Bridgett Márquez, RN [facility] [id number] [address] [place] [address] Social History Tobacco Use Types Packs/Day Years [...] to . Phd patient- no answer. Phd [facility]- no record of patient. documented in this [...] as of this encounter Care Teams Rubber Goods Assembler Relationship Specialty Start [place] [address] PCP - General 12/25/20 Enrique Griffith MD [address] [place] [phone] Referring Physician Nephrology 01/08/21 documented as of this encounter
--- OUTSIDE RECORDS SUMMARY | 2025-08-10 01:53 | XMS_ITS ---
Author Organization [facility] Address [address] [place] [address] Care Team Providers Care Cyanide Pot Hardener Name Role Phone Maile Valles RN Unavailable Unavail able Estephania Sharif PharmD Unavailable Christine Edgar Tolentino MD Primary Care Provider [phone] Khari Lema MD Unavailable [phone] Stan Moise RN Unavailable Unavail able Transplant Episode Kidney Candidate [facility] ([place], [place]) - [facility] Evaluation began on 02/04/2025 Marked as Active on 02/04/2025 Kidney CoordinatorStan Moise RN Phone: N/A Fax: N/A Email: N/A Scores Score Value Updated Exceptions/Reas ons CPRA Not available EPTS (Calc) 81 08/10/2025 [place] Organ Diagnosis Organ Primary Contributory Kidney Other, Specify - Transplant Comp lications Care Team Name Role Phone Fax Email Stan Moise RN Kidney Coordinator N/A N/A N/A Stan Moise RN Registered Nurse N/A N/A N/A Man Sky MD Referring Physician [phone] N/A Events Pre-Transplant Referred: 11/05/2024 Evaluation began: 02/04/2025 Committee: 02/10/2025 Dialysis History Dialysis History Start End Type Comments Center 11/28/2022 Home Hemodialysis [phone] [facility] 09/26/2019 11/25/2022 Hemodialysis [facility] Dialysis Center Information Center Phone Fax Address [facility] [phone] 3284 [facility], [address] [address] [facility] [phone] [place] [address]
--- OUTSIDE RECORDS SUMMARY | 2025-08-10 01:53 | XMS_ITS | Encounter Summary ---
Author Organization [facility] Address [address] [place] [address] Care Team Providers Care Shoes Hand Sewer Name Role Phone Ibrahima Fournier MD Primary Care Provider [phone] Enrique Griffith MD Unavailable [phone] Encounter Details Date Type Department Care Team (Late st Contact Info) Description 02/28/2017 [facility] OTTR Encounter Historical OTTR [address] [place] [address] Bridgett Márquez, RN [facility] [id number] [address] [place] [address] Social History Tobacco Use Types Packs/Day Years [...] documented as of this encounter Care Teams Shoes Hand Sewer Relationship Specialty Start [place] [address] PCP - General 12/25/20 Enrique Griffith MD [facility] [place] [address] Referring Physician Nephrology 01/08/21 documented as of this encounter
--- OUTSIDE RECORDS SUMMARY | 2025-08-10 01:53 | XMS_ITS | Encounter Summary ---
Author Organization [facility] Address [address] [place] [address] Care Team Providers Care Miller Helper Distillery Name Role Phone Ibrahima Fournier MD Primary Care Provider [phone] Enrique Griffith MD Unavailable [phone] Encounter Details Date Type Department Care Team (Late st Contact Info) Description 01/06/2017 [facility] OTTR Encounter Historical OTTR [address] [place] [address] Sandrita Ferguson, RUBBER DOWN [address] [facility] [address] [place] [address] Social History Tobacco Use Types Packs/Day Years [...] documented as of this encounter Care Teams Miller Helper Distillery Relationship Specialty Start [place] [address] PCP - General 12/25/20 Enrique Griffith MD [address] [place] [address] Referring Physician Nephrology 01/08/21 documented as of this encounter
--- OUTSIDE RECORDS SUMMARY | 2025-08-10 01:53 | XMS_ITS | Encounter Summary ---
Author Organization [facility] Address [address] [place] [address] Care Team Providers Care Printing Equipment Mechanic Apprentice Name Role Phone Ibrahima Fournier MD Primary Care Provider [phone] Enrique Griffith MD Unavailable [phone] Encounter Details Date Type Department Care Team (Late st Contact Info) Description 05/08/2017 [facility] OTTR Encounter Historical OTTR [address] [place] [address] Carla Hammonds [address] Social History Tobacco Use Types Packs/Day Years [...] as of this encounter Care Teams Printing Equipment Mechanic Apprentice Relationship Specialty Start [place] [address] PCP - General 12/25/20 Enrique Griffith MD [address] [place] [address] Referring Physician Nephrology 01/08/21 documented as of this encounter
--- OUTSIDE RECORDS SUMMARY | 2025-08-10 01:53 | XMS_ITS | Encounter Summary ---
Author Organization [facility] Address [address] [place] [address] Care Team Providers Care Ballistic Expert Name Role Phone Ibrahima Fournier MD Primary Care Provider [phone] Enrique Griffith MD Unavailable [phone] Encounter Details Date Type Department Care Team (Late st Contact Info) Description 05/31/2017 [facility] OTTR Encounter Historical OTTR [address] [place] [address] Jaren Naqvi [address] Social History Tobacco Use Types Packs/Day Years [...] documented as of this encounter Care Teams Ballistic Expert Relationship Specialty Start [place] [address] PCP - General 12/25/20 Enrique Griffith MD [address] [place] [address] Referring Physician Nephrology 01/08/21 documented as of this encounter
--- OUTSIDE RECORDS SUMMARY | 2025-08-10 01:53 | XMS_ITS | Encounter Summary ---
Author Organization [facility] Address [address] [place] [address] Care Team Providers Care Multimedia Manager Name Role Phone Ibrahima Fournier MD Primary Care Provider [phone] Enrique Griffith MD Unavailable [phone] Encounter Details Date Type Department Care Team (Late st Contact Info) Description 02/01/2017 [facility] OTTR Encounter Historical OTTR [address] [place] [address] Christa Knowles [address] Social History Tobacco Use Types Packs/Day Years [...] PM EDT DOS 02/28/17 OP Cpt Colonoscopy 03623, NPR. Video Capsule EGD [id number] approved auth# [id number], expires [facility]/28[facility]. documented in this [...] EXTERNAL LAB - 02/01/2017 8:40 PM EDT [facility] us Historical Provider LAB BLOOD ORDERABLES Final R esult EXTERNAL LAB documented in this encounter Visit Diagnoses Not on filedocumented in this encounter Additional Health Concerns Infection Onset Date Last Indicated Resolved Time COVID-19 Rule-Out 11/08/2021 11/08/2021 11/08/2021 8:06 AM EDT documented as of this encounter Care Teams Multimedia Manager Relationship Specialty Start [place] [address] PCP - General 12/25/20 Enrique Griffith MD [address] [place] [address] Referring Physician Nephrology 01/08/21 documented as of this encounter
--- OUTSIDE RECORDS SUMMARY | 2025-08-10 01:53 | XMS_ITS | Referral Summary ---
Author Organization [employer] ([place], [place], [place], [place], [place]) Address [address] [place] [address] Care Team Providers Care Shaper Setter Name Role Phone Edgar Fournier MD Primary Care Provider [phone] Allergies Active Allergy Reactions Criticality Noted Date [...] been transmitting cardiomems - will work with [employer] to trouble shoot - aim to drive pressures down Pain 05/14/2024 Hyperkalemia 05/07/2024 AVF (arteriovenous fistula) 08/11/2023 Gastroesophageal reflux disease 07/18/2023 Obesity, Class III, BMI 40-49.9 (morbid obesity) 11/08/2021 Overview (05/14/2024): Lifestyle modification including weight loss was discussed again during this encounter. History of liver transplant 04/28/2020 Overview (05/14/2024): Active follow-up at [place], [place] Hyperlipidemia 04/13/2020 Type 2 diabetes mellitus [...] hospitalization at and during recent titration at [facility]. ESRD (end stage renal [...] you? Never 08/05/2024 How often does anyone, claduette roberts family and friends, threaten you with harm? Never 08/05/2024 How often does anyone, claudette roberts family and friends, scream or curse at you? Never 08/05/2024 Housing Stability Answer Date Recorded What is your living situation today? I have a [facility] place to live 08/05/2024 Think about the [...] Do you speak a language other than [facility]? No 08/05/2024 Do you want help [...] Nonreactive Nonreactive, Equivocal 08/06/2024 2:53 AM EST [facility] Hep B C IgM Nonreactive Nonreactive 08/06/2024 2:53 AM EST [facility] Hepatitis B surface antigen Nonreactive Nonreactive, Equivocal 08/06/2024 2:53 AM [facility] Hepatitis C Ab Nonreactive Nonreactive, Equivocal 08/06/2024 2:53 AM [facility] Blood Venipuncture / Unknown 08/05/2024 11:24 PM EST 08/05/2024 11:29 PM EST [facility] - 08/06/2024 2:53 AM [...] LAB BLOOD ORDERABLES Final Resu lt [facility] [address] [phone] from Last 3 Months or Most Recently Relevant to Health Maintenance Insurance MEDICAID B Member Subscriber Plan / Payer (Ef fective 2023-Present) Name:Aiden Stauffer Jr. Relation to Subscriber:Self Name:Aiden Stauffer Jr. Payer ID:[id number] Group ID:Not on file Type:Not on file Address: [address] ACCESS O MAP Advance Directives For more information, please contact: [phone] Documents on File Type Date Recorded Patient Home Help Aide Expl anation Advance Directives and Livin g [...] 12:52 PM 05/13/2024 12:59 PM Care Teams Shaper Setter Relationship Specialty Start Date End Date Edgar Fournier MD [address] [place] [address] [place] [address] PCP - General Family Medicine 06/27/24
--- OUTSIDE RECORDS SUMMARY | 2025-08-10 01:53 | XMS_ITS | Encounter Summary ---
Author Organization [facility] Address [address] [place] [address] Care Team Providers Care Community Service Worker Name Role Phone Ibrahima Fournier MD Primary Care Provider [phone] Enrique Griffith MD Unavailable [phone] Encounter Details Date Type Department Care Team (Late st Contact Info) Description 05/02/2017 [facility] OTTR Encounter Historical OTTR [address] [place] [address] Carla Hammonds [address] Social History Tobacco Use Types Packs/Day Years [...] as of this encounter Care Teams Community Service Worker Relationship Specialty Start [place] [address] PCP - General 12/25/20 Enrique Griffith MD [address] [place] [address] Referring Physician Nephrology 01/08/21 documented as of this encounter
--- OUTSIDE RECORDS SUMMARY | 2025-08-10 01:53 | XMS_ITS | Encounter Summary ---
Author Organization [facility] Address [address] [place] [address] Care Team Providers Care Hydraulic Modeling Engineer Name Role Phone Ibrahima Fournier MD Primary Care Provider [phone] Enrique Griffith MD Unavailable [phone] Encounter Details Date Type Department Care Team (Late st Contact Info) Description 02/22/2017 [facility] OTTR Encounter Historical OTTR [address] [place] [address] Bridgett Márquez, RN [facility] [id number] [address] [place] [address] Social History Tobacco Use Types Packs/Day Years [...] documented as of this encounter Care Teams Hydraulic Modeling Engineer Relationship Specialty Start [place] [address] PCP - General 12/25/20 Enrique Griffith MD [address] [place] [address] Referring Physician Nephrology 01/08/21 documented as of this encounter
--- OUTSIDE RECORDS SUMMARY | 2025-08-10 01:54 | XMS_ITS | Encounter Summary ---
Author Organization [facility] Address [address] [place] [address] Care Team Providers Care Sewer Pipe Layer Name Role Phone Ibrahima Fournier MD Primary Care Provider [phone] Enrique Griffith MD Unavailable [phone] Encounter Details Date Type Department Care Team (Late st Contact Info) Description 09/07/2017 [facility] OTTR Encounter Historical OTTR [address] [place] [address] Bridgett Márquez, RN [facility] [id number] [address] [place] [address] Social History Tobacco Use Types Packs/Day Years [...] 09/08/2017 3:23 AM EST Automated LAB Interface [facility] Provider LAB BLOOD ORDERABLES Final R esult Performing Organization Address [facility] de Phone Number EXTERNAL LAB * OTTR LAB RESULTS (MANUAL) (09/07/2017 4:40 AM EST) External Estimated GFR 59.49 EXTERNAL LAB 09/07/2017 4:40 AM EST Narrative EXTERNAL LAB - 09/07/2017 5:41 AM EST Automated LAB Interface Historical Provider LAB BLOOD ORDERABLES Final R esult Performing Organization Address [facility] Co de Phone Number EXTERNAL LAB documented in this encounter Visit Diagnoses Not on filedocumented in this encounter Additional Health Concerns Infection Onset Date Last Indicated Resolved Time COVID-19 Rule-Out 11/08/2021 11/08/2021 11/08/2021 8:06 AM EDT documented as of this encounter Care Teams Sewer Pipe Layer Relationship Specialty Start [place] [address] PCP - General 12/25/20 Enrique Griffith MD [address] [place] [address] Referring Physician Nephrology 01/08/21 documented as of this encounter
--- OUTSIDE RECORDS SUMMARY | 2025-08-10 01:54 | XMS_ITS | Encounter Summary ---
Author Organization [facility] Address [address] [place] [address] Care Team Providers Care Sql Server Dba Name Role Phone Ibrahima Fournier MD Primary Care Provider [phone] Enrique Griffith MD Unavailable [phone] Encounter Details Date Type Department Care Team (Late st Contact Info) Description 03/07/2017 [facility] OTTR Encounter Historical OTTR [address] [place] [address] Bridgett Márquez, RN [facility] [id number] [address] [place] [address] Social History Tobacco Use Types Packs/Day Years [...] 03/07/2017 8:01 AM EDT Patient admitted to [facility] for HE and abdominal pain. MELD [...] ORDERABLES Final R esult Performing Organization Address [facility] Co de Phone Number EXTERNAL LAB * OTTR LAB RESULTS (MANUAL) (03/06/2017 8:02 PM EDT) External Estimated GFR 68.91 EXTERNAL LAB 03/06/2017 8:02 PM EDT Narrative EXTERNAL LAB - 03/06/2017 8:41 PM EDT Automated LAB Interface Historical Provider LAB BLOOD ORDERABLES Final R esult Performing Organization Address [facility] Co de Phone Number EXTERNAL LAB documented in this encounter Visit Diagnoses Not on filedocumented in this encounter Additional Health Concerns Infection Onset Date Last Indicated Resolved Time COVID-19 Rule-Out 11/08/2021 11/08/2021 11/08/2021 8:06 AM EDT documented as of this encounter Care Teams Sql Server Dba Relationship Specialty Start [place] [address] PCP - General 12/25/20 Enrique Griffith MD [address] [place] [address] Referring Physician Nephrology 01/08/21 documented as of this encounter
--- OUTSIDE RECORDS SUMMARY | 2025-08-10 01:54 | XMS_ITS | Encounter Summary ---
Author Organization [facility] Address [address] [place] [address] Care Team Providers Care Insole Tacker Name Role Phone Ibrahima Fournier MD Primary Care Provider [phone] Enrique Griffith MD Unavailable [phone] Encounter Details Date Type Department Care Team (Late st Contact Info) Description 08/23/2017 [facility] OTTR Encounter Historical OTTR [address] [place] [address] Bridgett Márquez, RN [facility] [id number] [address] [place] [address] Social History Tobacco Use Types Packs/Day Years [...] documented as of this encounter Care Teams Insole Tacker Relationship Specialty Start [place] [address] PCP - General 12/25/20 Enrique Griffith MD [facility] [place] [address] Referring Physician Nephrology 01/08/21 documented as of this encounter
--- OUTSIDE RECORDS SUMMARY | 2025-08-10 01:54 | XMS_ITS | Clinical Summary ---
Author Organization [facility] Address [address] [place] [address] Phone Care Team Providers Care Windows Migration Technician Name Role Phone Desire Weldon Unavailable Unavailable Conditions or Problems Problem Name Problem Code Onset Date Status Entry Date Provider Comment Standard Description Annotate Osteomyelitis of vertebra, lumbar region M46.26 (ICD-10-CM ) 0 Active 0 Afshan W Osteomyelitis of vertebra, lumbar region Abscess, epidural 33649760 (SNOMED CT) 0 Active 0 Afshan W Spinal epidural abscess Liver transplant-Imm unocompromised 73073511 (SNOMED CT) 0 Active 005 Afshan W Transplantation of liver Low back pain 028336123 (SNOMED CT) 0 Active 0/ Afshan W Low back pain Hyponatremia 72732451 (SNOMED CT) 0 Active 0/05 Afshan W Hyponatremia Diabetes mellitus, 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) (Z99.2) 103738775 (SNOMED CT) 0 Active 0/05 Afshan W Renal disorder due to type 2 diabetes mellitus SAL K76.0 (ICD-10-CM ) 0 Active 0/05 Afshan W Fatty (change of) liver, not elsewhere classified Anemia, secondary to acute blood loss 933408039 (SNOMED CT) 0/ Active 0/05 Afshan W Acute posthemorrhagic anemia Anemia in chronic kidney disease 746966419 (SNOMED CT) 0 Active 0/05 Afshan W Anemia of chronic disease Acute confusion 953978938 (SNOMED CT) 0 Active Afshan W Acute confusion Weakness 27101773 (SNOMED CT) Active Afshan [place] Asthenia Medications Medication Instructions Start Date Stop Date Generic Name NDC Provider FIRVANQ SOLR 750mg IV Q 48 hrs /// [facility] ()[phone] VANCOMYCIN HCL SOLR [id number] [facility] LINEZOLID 600 MG TABS Take one (1) tablet by mouth twice a day LINEZOLID 50677280066 Cayetano Rodriguez MD FLUCONAZOLE 100 MG TABS Take 1 tablet by mouth daily FLUCONAZOLE 36777712560 Cayetano Rodriguez MD FIRVANQ SOLR 750mg IV Q 48 hrs /// [facility] ()[phone] 09/21 VANCOMYCIN HCL SOLR 53520542103 [facility] DOXYCYCLINE MONOHYDRATE 100 MG CAPS one cap bid 08/18 DOXYCYCLINE MONOHYDRATE 53740416230 Cayetano Rodriguez MD VITAMIN D (ERGOCALCIFEROL) 1.25 MG (66834 UT) CAPS once weekly ERGOCALCIFEROL 52280041958 Lynnette Pantoja ONDANSETRON HCL 4 MG TABS Q8H/PRN ONDANSETRON HCL 40839389023 Lynnette Pantoja NIFEDIPINE ER OSMOTIC RELEASE 90 MG [id number] Take by mouth twice a day NIFEDIPINE 32123616080 Lynnette Quinterosx MYCOPHENOLATE MOFETIL 250 MG CAPS Take by mouth twice a day MYCOPHENOLATE MOFETIL 66700852111 Lynnette Quinterosx METOPROLOL TARTRATE 100 MG TABS Take by mouth twice a day METOPROLOL TARTRATE 25377202566 Lynnette Pantoja HUMULIN N 100 UNIT/ML SUSP Subcutaneous, 2 Times Daily Before Meals, 48 units qam and 15 units qhs INSULIN NPH HUMAN (ISOPHANE) 33473394562 Lynnette Pantoja HYDROXYZINE PAMOATE 25 MG CAPS Take one by mouth daily HYDROXYZINE PAMOATE 63446940195 Lynnette Pantoja HYDRALAZINE HCL 50 MG TABS 300 mg, Oral, 3 Times Daily HYDRALAZINE HCL 15199654989 Lynnette Pantoja GABAPENTIN 800 MG TABS 1,200 mg, Oral, 3 Times Daily GABAPENTIN 60033962610 Lynnette Pantoja FAMOTIDINE 20 MG TABS Take by mouth twice a day/PRN FAMOTIDINE 25765650778 Lynnette Pantoja ENTECAVIR 0.5 MG TABS Take one by mouth daily x 7 days ENTECAVIR 57831128661 Lynnette Vital[employer]ox DOXAZOSIN MESYLATE 8 MG TABS Take one by mouth daily/PRN DOXAZOSIN MESYLATE 68063531888 Lynnette Pantoja CYCLOSPORINE MODIFIED 50 MG CAPS Take by mouth twice a day CYCLOSPORINE MODIFIED 66011372929 Lynnette Pantoja CYCLOBENZAPRINE HCL 10 MG TABS Take one by mouth 3 times daily, morning, afternoon and evening./PRN CYCLOBENZAPRINE HCL 62107270042 Lynnette Pantoja CARBAMAZEPINE 200 MG TABS Take one by mouth daily CARBAMAZEPINE 20109740612 Lynnette Pantoja ADULT ASPIRIN REGIMEN 81 MG ORAL TABLET DELAYED RELEASE Take one by mouth daily ASPIRIN 03905052905 Lynnette Pantoja ALPRAZOLAM 1 MG TABS Take one by mouth daily ALPRAZOLAM 05705615596 Lynnette Vitaledox LISINOPRIL 40 MG TABS Take one by mouth daily LISINOPRIL 08171376822 Lynnette Pantoja HYDROCODONE-ACETAM INOPHEN 5-325 MG TABS Q4H/PRN HYDROCODONE-ACETA MINOPHEN 80580819344 Lynnette Pantoja DOXYCYCLINE HYCLATE 100 MG CAPS Take by mouth twice a day DOXYCYCLINE HYCLATE 00530640300 Lynnette Pantoja FIRVANQ SOLR 750mg IV Q 48 hrs /// [facility] 09/21 VANCOMYCIN HCL SOLR 65748952660 Genevieve Merrillbbins Medications Administered No information available. Allergies, Adverse Reactions, Alerts No information available. Results Date Name Value Unit Range Flag Description Office Visit: rm 15-tele HFU ORALTOBACUSE Never Tobacco smoking status SMOK STATUS Never smoker Toba charge account authorizer smoking status Clinical Lists Update: WILLIE MEDS [...]
--- OUTSIDE RECORDS SUMMARY | 2025-08-10 01:54 | XMS_ITS | Encounter Summary ---
Author Organization [facility] Address [address] [place] [address] Care Team Providers Care Costume Designer Name Role Phone Ibrahima Fournier MD Primary Care Provider [phone] Enrique Griffith MD Unavailable [phone] Encounter Details Date Type Department Care Team (Late st Contact Info) Description 04/04/2017 [facility] OTTR Encounter Historical OTTR [address] [place] [address] Kathya Hassan, NAVNEET [address] [facility] [address] [place] [address] Social History Tobacco Use Types Packs/Day Years [...] for transplant. He is also listed in [place]. MELD 18 (INR 1.4, Cr 1.21, Na [...] HCC Surveillance - US of abdomen - 5--17 - 1. No acute findings in the [...] documented as of this encounter Care Teams Costume Designer Relationship Specialty Start [place] [address] PCP - General 12/25/20 Enrique Griffith MD [address] [place] [address] Referring Physician Nephrology 01/08/21 documented as of this encounter
--- OUTSIDE RECORDS SUMMARY | 2025-08-10 01:54 | XMS_ITS | Encounter Summary ---
Author Organization [facility] Address [address] [place] [address] Care Team Providers Care Paper Conservator Name Role Phone Ibrahima Fournier MD Primary Care Provider [phone] Enrique Griffith MD Unavailable [phone] Encounter Details Date Type Department Care Team (Late st Contact Info) Description 12/06/2016 [facility] OTTR Encounter Historical OTTR [address] [place] [address] Maern Friedman MD [address] [facility] [address] [place] [address] Social History Tobacco Use Types [...] as of this encounter Care Teams Paper Conservator Relationship Specialty Start [place] [address] PCP - General 12/25/20 Enrique Griffith MD [address] [place] [address] Referring Physician Nephrology 01/08/21 documented as of this encounter
--- OUTSIDE RECORDS SUMMARY | 2025-08-10 01:54 | XMS_ITS | Encounter Summary ---
Author Organization Healthcare Address [address] [place] [address] Care Team Providers Care Agricultural Service Technician Name Role Phone Ibrahima Fournier MD Primary Care Provider [phone] Enrique Griffith MD Unavailable [phone] Encounter Details Date Type Department Care Team (Late st Contact Info) Description 12/19/2016 [facility] OT[facility] Encounter Historical OTTR [address] [place] [address] Bridgett Márquez, RN [facility] LIVER [id number] [address] [place] [address] Social History Tobacco Use Types Packs/Day Years [...] R esult Performing Organization Address [facility] [[email or web address] de Phone Number EXTERNAL LAB * OTTR LAB RESULTS (MANUAL) (12/18/2016 12:13 AM EDT) External Estimated GFR 83.77 EXTERNAL LAB 12/18/2016 12:1 3 AM EDT Narrative EXTERNAL LAB - 12/18/2016 1:04 AM EDT Automated LAB Interface us Historical Provider LAB BLOOD ORDERABLES Final R esult Performing Organization Address [facility] [[email or web address] de Phone Number EXTERNAL LAB documented in this encounter Visit Diagnoses Not on filedocumented in this encounter Additional Health Concerns Infection Onset Date Last Indicated Resolved Time COVID-19 Rule-Out 11/08/2021 11/08/2021 11/08/2021 8:06 AM EDT documented as of this encounter Care Teams Agricultural Service Technician Relationship Specialty Start [place] [id number] PCP - General 12/25/20 Enrique Griffith MD [address] [place] [address] Referring Physician Nephrology 01/08/21 documented as of this encounter
--- OUTSIDE RECORDS SUMMARY | 2025-08-10 01:54 | XMS_ITS | Encounter Summary ---
Author Organization [facility] Address [address] [place] [address] Care Team Providers Care Marine Transport Professionals Name Role Phone Ibrahima Fournier MD Primary Care Provider [phone] Enrique Griffith MD Unavailable [phone] Encounter Details Date Type Department Care Team (Late st Contact Info) Description 11/16/2016 [facility] OTTR Encounter Historical OTTR [address] [place] [address] Roxi Vazquez [facility] [address] [place] [address] Social History Tobacco Use Types Packs/Day Years [...] after dischg. Told him I would have [facility] review and we would be i touch if needed. He verbalized understanding. documented in this encounter Plan of Treatment Not on file documented as of this encounter Visit Diagnoses Not on filedocumented in this encounter Additional Health Concerns Infection Onset Date Last Indicated Resolved Time COVID-19 Rule-Out 11/08/2021 11/08/2021 11/08/2021 8:06 AM EDT documented as of this encounter Care Teams Marine Transport Professionals Relationship Specialty Start [place] [address] PCP - General 12/25/20 Enrique Griffith MD [address] [place] [address] Referring Physician Nephrology 01/08/21 documented as of this encounter
--- OUTSIDE RECORDS SUMMARY | 2025-08-10 01:54 | XMS_ITS | Encounter Summary ---
Author Organization [facility] Address [address] [place] [address] Care Team Providers Care Coater Carbon Paper Name Role Phone Ibrahima Fournier MD Primary Care Provider [phone] Enrique Griffith MD Unavailable [phone] Encounter Details Date Type Department Care Team (Late st Contact Info) Description 12/28/2016 [facility] OT[facility] Encounter Historical OTTR [address] [place] [address] Bridgett Márquez, RN [facility] [id number] [address] [place] [address] Social History Tobacco Use Types Packs/Day Years [...] documented as of this encounter Care Teams Coater Carbon Paper Relationship Specialty Start [place] [address] PCP - General 12/25/20 Enrique Griffith MD [address] [place] [phone] Referring Physician Nephrology 01/08/21 documented as of this encounter
--- OUTSIDE RECORDS SUMMARY | 2025-08-10 01:54 | XMS_ITS | Encounter Summary ---
Author Organization [facility] Address [address] [place] [address] Care Team Providers Care Drapery Supervisor Name Role Phone Ibrahima Fournier MD Primary Care Provider [phone] Enrique Griffith MD Unavailable [phone] Encounter Details Date Type Department Care Team (Late st Contact Info) Description 12/06/2016 [facility] OTTR Encounter Historical OTTR [address] [place] [address] Bridgett Márquez, RN [facility] [id number] [address] [place] [address] Social History Tobacco Use Types Packs/Day Years [...] diuretics. he understood. Will fax orders to [facility]. documented in this encounter Plan of Treatment Not on file documented as of this encounter Visit Diagnoses Not on filedocumented in this encounter Additional Health Concerns Infection Onset Date Last Indicated Resolved Time COVID-19 Rule-Out 11/08/2021 11/08/2021 11/08/2021 8:06 AM EDT documented as of this encounter Care Teams Drapery Supervisor Relationship Specialty Start [place] [address] PCP - General 12/25/20 Enrique Griffith MD [address] [place] [address] Referring Physician Nephrology 01/08/21 documented as of this encounter
--- OUTSIDE RECORDS SUMMARY | 2025-08-10 01:54 | XMS_ITS | Encounter Summary ---
Author Organization [facility] Address [address] [place] [address] Care Team Providers Care Tenter Frame Operator Name Role Phone Ibrahima Fournier MD Primary Care Provider [phone] Enrique Griffith MD Unavailable [phone] Encounter Details Date Type Department Care Team (Late st Contact Info) Description 10/02/2017 [facility] OT[facility] Committee Historical OTTR [address] [place] [address] Raquel Toribio [address] Social History Tobacco Use Types Packs/Day Years [...] is listed for liver transplant here at [facility], came in for follow-up. SAL Cirrhosis [...] recent Doppler in December - Will ask [facility] to please arrange for colonoscopy and video [...] documented as of this encounter Care Teams Tenter Frame Operator Relationship Specialty Start [place] [address] PCP - General 12/25/20 Enrique Griffith MD [address] [place] [address] Referring Physician Nephrology 01/08/21 documented as of this encounter
--- OUTSIDE RECORDS SUMMARY | 2025-08-10 01:54 | XMS_ITS | Encounter Summary ---
Author Organization [facility] Address [address] [place] [address] Care Team Providers Care Coal Unloader Name Role Phone Ibrahima Fournier MD Primary Care Provider [phone] Enrique Griffith MD Unavailable [phone] Encounter Details Date Type Department Care Team (Late st Contact Info) Description 12/20/2016 [facility] OTTR Encounter Historical OTTR [address] [place] [address] Shara Huff, LAP WINDER, DNP [address] [facility] [address] [place] [address] Social History Tobacco Use Types Packs/Day Years [...] as of this encounter Care Teams Coal Unloader Relationship Specialty Start [place] [address] PCP - General 12/25/20 Enrique Griffith MD [address] [place] [phone] Referring Physician Nephrology 01/08/21 documented as of this encounter
--- OUTSIDE RECORDS SUMMARY | 2025-08-10 01:54 | XMS_ITS | Encounter Summary ---
Author Organization [facility] Address [address] [place] [address] Care Team Providers Care Tearer Name Role Phone Ibrahima Fournier MD Primary Care Provider [phone] Enrique Griffith MD Unavailable [phone] Encounter Details Date Type Department Care Team (Late st Contact Info) Description 09/07/2017 [facility] OTTR Encounter Historical OTTR [address] [place] [address] Sandrita Ferguson, POLISHER IMPLANT [address] [facility] [address] [place] [address] Social History Tobacco Use Types [...] at home. We will ask our social work program coordinator to reassess the patient at his next [...] documented as of this encounter Care Teams Tearer Relationship Specialty Start [place] [address] PCP - General 12/25/20 Enrique Griffith MD [address] [place] [phone] Referring Physician Nephrology 01/08/21 documented as of this encounter
--- OUTSIDE RECORDS SUMMARY | 2025-08-10 01:54 | XMS_ITS | Encounter Summary ---
Author Organization [facility] Address [address] [place] [address] Care Team Providers Care Steam Service Inspector Name Role Phone Ibrahima Fournier MD Primary Care Provider [phone] Enrique Griffith MD Unavailable [phone] Encounter Details Date Type Department Care Team (Late st Contact Info) Description 10/09/2017 [facility] OTTR Encounter Historical OTTR [address] [place] [address] Bridgett Márquez, RN [facility] LIVER [id number] [address] [place] [address] Social History Tobacco Use Types Packs/Day Years [...] as of this encounter Care Teams Steam Service Inspector Relationship Specialty Start [place] [address] PCP - General 12/25/20 Enrique Griffith MD [address] [place] [phone] Referring Physician Nephrology 01/08/21 documented as of this encounter
--- OUTSIDE RECORDS SUMMARY | 2025-08-10 01:54 | XMS_ITS | Encounter Summary ---
Author Organization [facility] Address [address] [place] [address] Care Team Providers Care Soft Crab Shedder Name Role Phone Ibrahima Fournier MD Primary Care Provider [phone] Enrique Griffith MD Unavailable [phone] Encounter Details Date Type Department Care Team (Late st Contact Info) Description 09/20/2017 [facility] OTTR Encounter Historical OTTR [address] [place] [address] Bridgett Márquez, RN [facility] [id number] [address] [place] [address] Social History Tobacco Use Types Packs/Day Years [...] 09/20/2017 1:51 PM EST Patient to RTC 18 at 10am documented in this encounter Plan of Treatment Not on file documented as of this encounter Visit Diagnoses Not on filedocumented in this encounter Additional Health Concerns Infection Onset Date Last Indicated Resolved Time COVID-19 Rule-Out 11/08/2021 11/08/2021 11/08/2021 8:06 AM EDT documented as of this encounter Care Teams Soft Crab Shedder Relationship Specialty Start [place] [address] PCP - General 12/25/20 Enrique Griffith MD [facility] [place] [address] Referring Physician Nephrology 01/08/21 documented as of this encounter
--- OUTSIDE RECORDS SUMMARY | 2025-08-10 01:54 | XMS_ITS | Encounter Summary ---
Author Organization [facility] Address [address] [place] [address] Care Team Providers Care Business Rules Analyst Name Role Phone Ibrahima Fournier MD Primary Care Provider [phone] Enrique Griffith MD Unavailable [phone] Encounter Details Date Type Department Care Team (Late st Contact Info) Description 01/05/2017 [facility] OTTR Encounter Historical OTTR [address] [place] [address] Bridgett Márquez, RN [facility] LIVER [id number] [address] [place] [address] Social History Tobacco Use Types Packs/Day Years [...] as of this encounter Care Teams Business Rules Analyst Relationship Specialty [place] [address] PCP - General 12/25/20 Enrique Griffith MD [address] [place] [address] Referring Physician Nephrology 01/08/21 documented as of this encounter
--- OUTSIDE RECORDS SUMMARY | 2025-08-10 01:54 | XMS_ITS | Encounter Summary ---
Author Organization [facility] Address [address] [place] [address] Care Team Providers Care Loss Prevention Representative Name Role Phone Ibrahima Fournier MD Primary Care Provider [phone] Enrique Griffith MD Unavailable [phone] Encounter Details Date Type Department Care Team (Late st Contact Info) Description 03/28/2017 [facility] OTTR Encounter Historical OTTR [address] [place] [address] Jack Ansari Social History Tobacco Use Types [...] of this encounter Care Teams Loss Prevention Representative Relationship Specialty Start [place] [address] PCP - General 12/25/20 Enrique Griffith MD [address] [place] [address] Referring Physician Nephrology 01/08/21 documented as of this encounter
--- OUTSIDE RECORDS SUMMARY | 2025-08-10 01:54 | XMS_ITS | Encounter Summary ---
Author Organization [facility] Address [address] [place] [address] Care Team Providers Care Computer Graphic Artist Name Role Phone Ibrahima Fournier MD Primary Care Provider [phone] Enrique Griffith MD Unavailable [phone] Encounter Details Date Type Department Care Team (Late st Contact Info) Description 11/17/2016 [facility] OTTR Encounter Historical OTTR [address] [place] [address] Cristal Montano [address] Social History Tobacco Use Types Packs/Day Years [...] as of this encounter Care Teams Computer Graphic Artist Relationship Specialty Start [place] [address] PCP - General 12/25/20 Enrique Griffith MD [address] [place] [phone] Referring Physician Nephrology 01/08/21 documented as of this encounter
--- OUTSIDE RECORDS SUMMARY | 2025-08-10 01:54 | XMS_ITS | Encounter Summary ---
Author Organization [facility] Address [address] [place] [address] Care Team Providers Care Drier And Grinder Tender Name Role Phone Ibrahima Fournier MD Primary Care Provider [phone] Enrique Griffith MD Unavailable [phone] Encounter Details Date Type Department Care Team (Late st Contact Info) Description 11/21/2016 [facility] OTTR Encounter Historical OTTR [address] [place] [address] Bridgett Márquez, RN [facility] [id number] [address] [place] [address] Social History Tobacco Use Types Packs/Day Years [...] documented as of this encounter Care Teams Drier And Grinder Tender Relationship Specialty Start [place] [address] PCP - General 12/25/20 Enrique Griffith MD [address] [place] [address] Referring Physician Nephrology 01/08/21 documented as of this encounter
--- OUTSIDE RECORDS SUMMARY | 2025-08-10 01:54 | XMS_ITS | Encounter Summary ---
Author Organization [facility] Address [address] [place] [address] Care Team Providers Care Restaurant Hostess Name Role Phone Ibrahima Fournier MD Primary Care Provider [phone] Enrique Griffith MD Unavailable [phone] Encounter Details Date Type Department Care Team (Late st Contact Info) Description 12/16/2016 [facility] OTTR Encounter Historical OTTR [address] [place] [address] Bridgett Márquez, RN [facility] [id number] [address] [place] [address] Social History Tobacco Use Types Packs/Day Years [...] as of this encounter Care Teams Restaurant Hostess Relationship Specialty Start [place] [address] PCP - General 12/25/20 Enrique Griffith MD [address] [place] [address] Referring Physician Nephrology 01/08/21 documented as of this encounter
--- OUTSIDE RECORDS SUMMARY | 2025-08-10 01:54 | XMS_ITS | Encounter Summary ---
Author Organization [facility] Address [address] [place] [address] Care Team Providers Care Bobbin Loose End Finder Name Role Phone Ibrahima Fournier MD Primary Care Provider [phone] Enrique Griffith MD Unavailable [phone] Encounter Details Date Type Department Care Team (Late st Contact Info) Description 11/23/2016 [facility] OTTR Encounter Historical OTTR [address] [place] [address] Bridgett Márquez, RN [facility] [id number] [address] [place] [address] Social History Tobacco Use Types Packs/Day Years [...] documented as of this encounter Care Teams Bobbin Loose End Finder Relationship Specialty [place] [address] PCP - General 12/25/20 Enrique Griffith MD [facility] [place] [address] Referring Physician Nephrology 01/08/21 documented as of this encounter
--- OUTSIDE RECORDS SUMMARY | 2025-08-10 01:54 | XMS_ITS | Encounter Summary ---
Author Organization [facility] Address [address] [place] [address] Care Team Providers Care Oncology Rep Name Role Phone Ibrahima Fournier MD Primary Care Provider [phone] Enrique Griffith MD Unavailable [phone] Encounter Details Date Type Department Care Team (Late st Contact Info) Description 03/10/2017 [facility] OTTR Encounter Historical OTTR [address] [place] [address] Bridgett Márquez, RN [facility] [id number] [address] [place] [address] Social History Tobacco Use Types Packs/Day Years [...] for annual cardiac testing . Orders in [facility], msg to AG to schedule. documented in this encounter Plan of Treatment Not on file documented as of this encounter Visit Diagnoses Not on filedocumented in this encounter Additional Health Concerns Infection Onset Date Last Indicated Resolved Time COVID-19 Rule-Out 11/08/2021 11/08/2021 11/08/2021 8:06 AM EDT documented as of this encounter Care Teams Oncology Rep Relationship Specialty Start [place] [address] PCP - General 12/25/20 Enrique Griffith MD [address] [place] [address] Referring Physician Nephrology 01/08/21 documented as of this encounter
--- OUTSIDE RECORDS SUMMARY | 2025-08-10 01:54 | XMS_ITS | Encounter Summary ---
Author Organization [facility] Address [address] [place] [address] Care Team Providers Care Development Consultant Name Role Phone Ibrahima Fournier MD Primary Care Provider [phone] Enrique Griffith MD Unavailable [phone] Encounter Details Date Type Department Care Team (Late st Contact Info) Description 12/16/2016 [facility] OTTR Encounter Historical OTTR [address] [place] [address] Bridgett Márquez, RN [facility] [id number] [address] [place] [address] Social History Tobacco Use Types Packs/Day Years [...] EDT Patient scheduled for infusion 8am at [facility]. documented in this encounter Plan of Treatment Not on file documented as of this encounter Visit Diagnoses Not on filedocumented in this encounter Additional Health Concerns Infection Onset Date Last Indicated Resolved Time COVID-19 Rule-Out 11/08/2021 11/08/2021 11/08/2021 8:06 AM EDT documented as of this encounter Care Teams Development Consultant Relationship Specialty Start [place] [address] PCP - General 12/25/20 Enrique Griffith MD [facility] [place] [address] Referring Physician Nephrology 01/08/21 documented as of this encounter
--- OUTSIDE RECORDS SUMMARY | 2025-08-10 01:54 | XMS_ITS | Encounter Summary ---
Author Organization [facility] Address [address] [place] [address] Care Team Providers Care Social Media Community Manager Name Role Phone Ibrahima Fournier MD Primary Care Provider [phone] Enrique Griffith MD Unavailable [phone] Encounter Details Date Type Department Care Team (Late st Contact Info) Description 01/05/2017 Legacy OTTR Encounter Historical OTTR [address] [place] [address] Sandrita Ferguson, FACILITIES SUPERVISOR [address] [facility] [address] [place] [address] Social History Tobacco Use Types Packs/Day Years [...] type II diabetic who presented to the [facility] ED for evaluation of hematemesis and [...] as of this encounter Care Teams Social Media Community Manager Relationship Specialty Start [place] [address] PCP - General 12/25/20 Enrique Griffith MD [address] [place] [address] Referring Physician Nephrology 01/08/21 documented as of this encounter
--- OUTSIDE RECORDS SUMMARY | 2025-08-10 01:54 | XMS_ITS | Encounter Summary ---
Author Organization [facility] Address [address] [place] [address] Care Team Providers Care Solar Tech Name Role Phone Ibrahima Fournier MD Primary Care Provider [phone] Enrique Griffith MD Unavailable [phone] Encounter Details Date Type Department Care Team (Late st Contact Info) Description 12/13/2016 [facility] OTTR Encounter Historical OTTR [address] [place] [address] Bridgett Márquez, RN [facility] [id number] [address] [place] [address] Social History Tobacco Use Types Packs/Day Years [...] documented as of this encounter Care Teams Solar Tech Relationship Specialty Start [place] [address] PCP - General 12/25/20 Enrique Griffith MD [facility] [place] [address] Referring Physician Nephrology 01/08/21 documented as of this encounter
--- OUTSIDE RECORDS SUMMARY | 2025-08-10 01:54 | XMS_ITS | Encounter Summary ---
Author Organization [facility] Address [address] [place] [address] Care Team Providers Care Claims Director Name Role Phone Ibrahima Fourneir MD Primary Care Provider [phone] Enrique Griffith MD Unavailable [phone] Encounter Details Date Type Department Care Team (Late st Contact Info) Description 03/08/2017 [facility] OTTR Encounter Historical OTTR [address] [place] [address] Bridgett Márquez, RN [facility] [id number] [address] [place] [address] Social History Tobacco Use Types Packs/Day Years [...] to to care. Paged Dr. Evans at [facility] ([phone]) documented in this encounter Plan of Treatment [...] documented as of this encounter Care Teams Claims Director Relationship Specialty Start [place] [address] PCP - General 12/25/20 Enrique Griffith MD [address] [place] [address] Referring Physician Nephrology 01/08/21 documented as of this encounter
--- OUTSIDE RECORDS SUMMARY | 2025-08-10 01:54 | XMS_ITS | Encounter Summary ---
Author Organization [facility] Address [address] [place] [address] Care Team Providers Care Price Analyst Name Role Phone Ibrahima Fournier MD Primary Care Provider [phone] Enrique Griffith MD Unavailable [phone] Encounter Details Date Type Department Care Team (Late st Contact Info) Description 12/16/2016 Legacy OTTR Encounter Historical OTTR [address] [place] [address] Bridgett Márquez, RN [facility] LIVER [id number] [address] [place] [address] Social History Tobacco Use Types Packs/Day Years [...] documented as of this encounter Care Teams Price Analyst Relationship Specialty Start [place] [address] PCP - General 12/25/20 Enrique Griffith MD [address] [place] [address] Referring Physician Nephrology 01/08/21 documented as of this encounter
--- OUTSIDE RECORDS SUMMARY | 2025-08-10 01:54 | XMS_ITS | Encounter Summary ---
Author Organization [facility] Address [address] [place] [address] Care Team Providers Care Steel Layout Worker Name Role Phone Ibrahima Fournier MD Primary Care Provider [phone] Enrique Griffith MD Unavailable [phone] Encounter Details Date Type Department Care Team (Late st Contact Info) Description 08/23/2017 [facility] OTTR Encounter Historical OTTR [address] [place] [address] Bridgett Márquez, [facility] [id number] [address] [place] [address] Social History Tobacco Use Types Packs/Day Years [...] EST Rec'd ph call from [facility]. She is working on dual listing [...] as of this encounter Care Teams Steel Layout Worker Relationship Specialty Start [place] [address] PCP - General 12/25/20 Enrique Griffith MD [address] [place] [address] Referring Physician Nephrology 01/08/21 documented as of this encounter
--- OUTSIDE RECORDS SUMMARY | 2025-08-10 01:54 | XMS_ITS | Encounter Summary ---
Author Organization [facility] Address [address] [place] [address] Care Team Providers Care Drama Critic Name Role Phone Ibrahima Fournier MD Primary Care Provider [phone] Enrique Griffith MD Unavailable [phone] Encounter Details Date Type Department Care Team (Late st Contact Info) Description 12/15/2016 Legacy OTTR Encounter Historical OTTR [address] [place] [address] Bridgett Márquez, RN [facility] [id number] [address] [place] [address] Social History Tobacco Use Types Packs/Day Years [...] EXTERNAL LAB - 12/16/2016 12:48 PM EDT [facility] us Historical Provider LAB BLOOD ORDERABLES Final R esult EXTERNAL LAB documented in this encounter Visit Diagnoses Not on filedocumented in this encounter Additional Health Concerns Infection Onset Date Last Indicated Resolved Time COVID-19 Rule-Out 11/08/2021 11/08/2021 11/08/2021 8:06 AM EDT documented as of this encounter Care Teams Drama Critic Relationship Specialty Start [place] [address] PCP - General 12/25/20 Enrique Griffith MD [address] [place] [address] Referring Physician Nephrology 01/08/21 documented as of this encounter
--- OUTSIDE RECORDS SUMMARY | 2025-08-10 01:54 | XMS_ITS | Encounter Summary ---
Author Organization [facility] Address [address] [place] [address] Care Team Providers Care Environment Artist Name Role Phone Ibrahima Fournier MD Primary Care Provider [phone] Enrique Griffith MD Unavailable [phone] Encounter Details Date Type Department Care Team (Late st Contact Info) Description 11/22/2016 Legacy OTTR Encounter Historical OTTR [address] [place] [address] Bridgett Márquez, RN [facility] LIVER [id number] [address] [place] [address] Social History Tobacco Use Types Packs/Day Years [...] documented as of this encounter Care Teams Environment Artist Relationship Specialty Start Date End Date Ibrahima Fournier MD [id number] PCP - General 12/25/20 Enrique Griffith MD [address] [place] [address] Referring Physician Nephrology 01/08/21 documented as of this encounter
--- OUTSIDE RECORDS SUMMARY | 2025-08-10 01:54 | XMS_ITS | Encounter Summary ---
Author Organization [facility] Address [address] [place] [address] Care Team Providers Care Hot Mill Tin Roller Name Role Phone Ibrahima Fournier MD Primary Care Provider [phone] Enrique Griffith MD Unavailable [phone] Encounter Details Date Type Department Care Team (Late st Contact Info) Description 09/13/2017 Legacy OTTR Encounter Historical OTTR [address] [place] [address] Bridgett Márquez RN [facility] LIVER [id number] [address] [place] [address] Social History Tobacco Use Types Packs/Day Years [...] documented as of this encounter Care Teams Hot Mill Tin Roller Relationship Specialty Start [place] [address] PCP - General 12/25/20 Enrique Griffith MD [address] [place] [address] Referring Physician Nephrology 01/08/21 documented as of this encounter
--- OUTSIDE RECORDS SUMMARY | 2025-08-10 01:54 | XMS_ITS | Encounter Summary ---
Author Organization [facility] Address [address] [place] [address] Care Team Providers Care Disbursing Officer Name Role Phone Ibrahima Forunier MD Primary Care Provider [phone] Enrique Griffith MD Unavailable [phone] Encounter Details Date Type Department Care Team (Late st Contact Info) Description 08/29/2017 Legacy OTTR Encounter Historical OTTR [address] [place] [address] Roxi Vazquez [facility] [address] [place] [address] Social History Tobacco Use Types Packs/Day Years [...] as of this encounter Care Teams Disbursing Officer Relationship Specialty Start [place] [address] PCP - General 12/25/20 Enrique Griffith MD [facility] [place] [address] Referring Physician Nephrology 01/08/21 documented as of this encounter
--- OUTSIDE RECORDS SUMMARY | 2025-08-10 01:54 | XMS_ITS | Encounter Summary ---
Author Organization [facility] Address [address] [place] [address] Care Team Providers Care Biomedical Engineering Aide Name Role Phone Ibrahima Fournier MD Primary Care Provider [phone] Enrique Griffith MD Unavailable [phone] Encounter Details Date Type Department Care Team (Late st Contact Info) Description 01/26/2017 Legacy OTTR Encounter Historical OTTR [address] [place] [address] Christa Knowles [address] Social History Tobacco Use Types Packs/Day Years [...] PM EDT DOS 02/28/17 OP Cpt Colonoscopy 31053, Video Capsule EGD 47645, pre-cert request faxed to Michelle graves/ clinical and saved to all docs. Nurse updated. documented in this encounter Plan of Treatment Not on file documented as of this encounter Visit Diagnoses Not on filedocumented in this encounter Additional Health Concerns Infection Onset Date Last Indicated Resolved Time COVID-19 Rule-Out 11/08/2021 11/08/2021 11/08/2021 8:06 AM EDT documented as of this encounter Care Teams Biomedical Engineering Aide Relationship Specialty Start [place] [address] PCP - General 12/25/20 Enrique Griffith MD [address] [place] [address] Referring Physician Nephrology 01/08/21 documented as of this encounter
--- OUTSIDE RECORDS SUMMARY | 2025-08-10 01:54 | XMS_ITS | Encounter Summary ---
Author Organization [facility] Address [address] [place] [address] Care Team Providers Care Sensor Operator Name Role Phone Ibrahima Fournier MD Primary Care Provider [phone] Enrique Griffith MD Unavailable [phone] Encounter Details Date Type Department Care Team (Late st Contact Info) Description 09/22/2017 Legacy OTTR Encounter Historical OTTR [address] [place] [address] Maren Friedman MD [address] [facility] [address] [place] [address] Social History Tobacco Use Types [...] documented as of this encounter Care Teams Sensor Operator Relationship Specialty Start [place] [address] PCP - General 12/25/20 Enrique Griffith MD [address] [place] [address] Referring Physician Nephrology 01/08/21 documented as of this encounter
--- OUTSIDE RECORDS SUMMARY | 2025-08-10 01:54 | XMS_ITS | Encounter Summary ---
Author Organization [facility] Address [address] [place] [address] Care Team Providers Care Car Hop Name Role Phone Ibrahima Fournier MD Primary Care Provider [phone] Enrique Griffith MD Unavailable [phone] Encounter Details Date Type Department Care Team (Late st Contact Info) Description 01/17/2017 Legacy OTTR Encounter Historical OTTR [address] [place] [address] Bridgett Márquez, RN [facility] [id number] [address] [place] [address] Social History Tobacco Use Types Packs/Day Years [...] like testing results faxed to Mar[facility] at [phone]. Will do same. documented in this encounter [...] as of this encounter Care Teams Car Hop Relationship Specialty Start [place] [address] PCP - General 12/25/20 Enrique Griffith MD [address] [place] [address] Referring Physician Nephrology 01/08/21 documented as of this encounter
--- OUTSIDE RECORDS SUMMARY | 2025-08-10 01:54 | XMS_ITS | Encounter Summary ---
Author Organization [facility] Address [address] [place] [address] Care Team Providers Care Accountant Supervisor Name Role Phone Ibrahima Fournier MD Primary Care Provider [phone] Enrique Griffith MD Unavailable [phone] Encounter Details Date Type Department Care Team (Late st Contact Info) Description 08/23/2017 Legacy OTTR Encounter Historical OTTR [address] [place] [address] Bridgett Márquez, RN [facility] [id number] [address] [place] [address] Social History Tobacco Use Types Packs/Day Years [...] documented as of this encounter Care Teams Accountant Supervisor Relationship Specialty Start [place] [address] PCP - General 12/25/20 Enrique Griffith MD [facility] [place] [address] Referring Physician Nephrology 01/08/21 documented as of this encounter
--- OUTSIDE RECORDS SUMMARY | 2025-08-10 01:54 | XMS_ITS | Encounter Summary ---
Author Organization [facility] Address [address] [place] [address] Care Team Providers Care Paddock Judge Name Role Phone Ibrahima Fournier MD Primary Care Provider [phone] Enrique Griffith MD Unavailable [phone] Encounter Details Date Type Department Care Team (Late st Contact Info) Description 12/21/2016 Legacy OTTR Encounter Historical OTTR [address] [place] [address] Shara Huff, PUFF IRON OPERATOR, DNP [address] [facility] [address] [place] [address] Social History Tobacco Use Types Packs/Day Years [...] documented as of this encounter Care Teams Paddock Judge Relationship Specialty Start [place] [address] PCP - General 12/25/20 Enrique Griffith MD [address] [place] [address] Referring Physician Nephrology 01/08/21 documented as of this encounter
--- OUTSIDE RECORDS SUMMARY | 2025-08-10 01:54 | XMS_ITS | Encounter Summary ---
Author Organization [facility] Address [address] [place] [address] Care Team Providers Care Die Cast Supervisor Name Role Phone Ibrahima Fournier MD Primary Care Provider [phone] Enrique Grififth MD Unavailable [phone] Encounter Details Date Type Department Care Team (Late st Contact Info) Description 08/23/2017 Legacy OTTR Encounter Historical OTTR [address] [place] [address] Kathya Hassan, NAVNEET [address] [facility] [address] [place] [address] Social History Tobacco Use Types Packs/Day Years [...] documented as of this encounter Care Teams Die Cast Supervisor Relationship Specialty Start [place] [address] PCP - General 12/25/20 Enrique Griffith MD [address] [place] [address] Referring Physician Nephrology 01/08/21 documented as of this encounter
--- OUTSIDE RECORDS SUMMARY | 2025-08-10 01:54 | XMS_ITS | Encounter Summary ---
Author Organization [facility] Address [address] [place] [address] Care Team Providers Care Glove Former Name Role Phone Ibrahima Fournier MD Primary Care Provider [phone] Enrique Griffith MD Unavailable [phone] Encounter Details Date Type Department Care Team (Late st Contact Info) Description 08/23/2017 Legacy OTTR Encounter Historical OTTR [address] [place] [address] Bridgett Márquez, RN [facility] [id number] [address] [place] [address] Social History Tobacco Use Types Packs/Day Years [...] documented as of this encounter Care Teams Glove Former Relationship Specialty Start [place] [address] PCP - General 12/25/20 Enrique Griffith MD [address] [place] [address] Referring Physician Nephrology 01/08/21 documented as of this encounter
--- OUTSIDE RECORDS SUMMARY | 2025-08-10 01:54 | XMS_ITS | Encounter Summary ---
Author Organization [facility] Address [address] [place] [address] Care Team Providers Care System Safety Engineer Name Role Phone Ibrahima Fournier MD Primary Care Provider [phone] Enrique Griffith MD Unavailable [phone] Encounter Details Date Type Department Care Team (Late st Contact Info) Description 12/27/2016 Legacy OTTR Encounter Historical OTTR [address] [place] [address] Bridgett Márquez, RN [facility] [id number] [address] [place] [address] Social History Tobacco Use Types Packs/Day Years [...] as of this encounter Care Teams System Safety Engineer Relationship Specialty Start [place] [address] PCP - General 12/25/20 Enrique Griffith MD [facility] [place] [address] Referring Physician Nephrology 01/08/21 documented as of this encounter
--- OUTSIDE RECORDS SUMMARY | 2025-08-10 01:54 | XMS_ITS | Encounter Summary ---
Author Organization [facility] Address [address] [place] [address] Care Team Providers Care Hospice Registered Nurse Name Role Phone Ibrahima Fournier MD Primary Care Provider [phone] Enrique Griffith MD Unavailable [phone] Encounter Details Date Type Department Care Team (Late st Contact Info) Description 12/06/2016 Legacy OTTR Encounter Historical OTTR [address] [place] [address] Roxi Vazquez [facility] [address] [place] [address] Social History Tobacco Use Types Packs/Day Years [...] to Pav [facility] Main Registration.No prep needed. [facility] to notify patient. documented in this encounter Plan of Treatment Not on file documented as of this encounter Visit Diagnoses Not on filedocumented in this encounter Additional Health Concerns Infection Onset Date Last Indicated Resolved Time COVID-19 Rule-Out 11/08/2021 11/08/2021 11/08/2021 8:06 AM EDT documented as of this encounter Care Teams Hospice Registered Nurse Relationship Specialty Start [place] [address] PCP - General 12/25/20 Enrique Griffith MD [address] [place] [address] Referring Physician Nephrology 01/08/21 documented as of this encounter
--- OUTSIDE RECORDS SUMMARY | 2025-08-10 01:54 | XMS_ITS | Encounter Summary ---
Author Organization [facility] Address [address] [place] [address] Care Team Providers Care Fruit Farmworker Name Role Phone Ibrahima Fournier MD Primary Care Provider [phone] Enrique Griffith MD Unavailable [phone] Encounter Details Date Type Department Care Team (Late st Contact Info) Description 03/08/2017 Legacy OTTR Encounter Historical OTTR [address] [place] [address] Bridgett Márquez, RN [facility] [id number] [address] [place] [address] Social History Tobacco Use Types Packs/Day Years [...] PM EDT Spoke with Dr. Evans at [facility]. he adv patient to be d/c [...] as of this encounter Care Teams Fruit Farmworker Relationship Specialty Start [place] [address] PCP - General 12/25/20 Enrique Griffith MD [address] [place] [address] Referring Physician Nephrology 01/08/21 documented as of this encounter
--- OUTSIDE RECORDS SUMMARY | 2025-08-10 01:54 | XMS_ITS | Encounter Summary ---
Author Organization [facility] Address [address] [place] [address] Care Team Providers Care Emerging Solutions Executive Name Role Phone Ibrahima Fournier MD Primary Care Provider [phone] Enrique Griffith MD Unavailable [phone] Encounter Details Date Type Department Care Team (Late st Contact Info) Description 04/11/2017 Legacy OTTR Encounter Historical OTTR [address] [place] [address] Kathya Hassan PA [address] [facility] [address] [place] [address] Social History Tobacco Use Types Packs/Day Years [...] documented as of this encounter Care Teams Emerging Solutions Executive Relationship Specialty Start [place] [address] PCP - General 12/25/20 Enrique Griffith MD [address] [place] [address] Referring Physician Nephrology 01/08/21 documented as of this encounter
--- OUTSIDE RECORDS SUMMARY | 2025-08-10 01:54 | XMS_ITS | Encounter Summary ---
Author Organization [facility] Address [address] [place] [address] Care Team Providers Care Commercial Airplane Pilot Name Role Phone Ibrahima Fournier MD Primary Care Provider [phone] Enirque Griffith MD Unavailable [phone] Encounter Details Date Type Department Care Team (Late st Contact Info) Description 04/13/2017 Legacy OTTR Encounter Historical OTTR [address] [place] [address] Shraa Huff, PASTRY ASSISTANT, DNP [address] [facility] [address] [place] [address] Social History Tobacco Use Types Packs/Day Years [...] C. diff, CMV by PCR and Yury Slainas by PCR given N/V with abdominal pain. [...] as of this encounter Care Teams Commercial Airplane Pilot Relationship Specialty Start [place] [address] PCP - General 12/25/20 Enrique Griffith MD [address] [place] [address] Referring Physician Nephrology 01/08/21 documented as of this encounter
--- OUTSIDE RECORDS SUMMARY | 2025-08-10 01:54 | XMS_ITS | Encounter Summary ---
Author Organization [facility] Address [address] [place] [address] Care Team Providers Care Diagnostic Technologist Name Role Phone Ibrahima Fournier MD Primary Care Provider [phone] Enrique Griffith MD Unavailable [phone] Encounter Details Date Type Department Care Team (Late st Contact Info) Description 04/13/2017 Legacy OTTR Encounter Historical OTTR [address] [place] [address] Erika Truong, RN [facility] [id number] [address] [place] [address] Social History Tobacco Use Types Packs/Day Years [...] - 04/13/2017 1:15 PM EDT orders in [facility] [place] - pt has [...] documented as of this encounter Care Teams Diagnostic Technologist Relationship Specialty Start [place] [address] PCP - General 12/25/20 Enrique Griffith MD [address] [place] [address] Referring Physician Nephrology 01/08/21 documented as of this encounter
--- OUTSIDE RECORDS SUMMARY | 2025-08-10 01:54 | XMS_ITS | Encounter Summary ---
Author Organization [facility] Address [address] [place] [address] Care Team Providers Care Food And Beverage Operations Manager Name Role Phone Ibrahima Fournier MD Primary Care Provider [phone] Enrique Griffith MD Unavailable [phone] Encounter Details Date Type Department Care Team (Late st Contact Info) Description 03/21/2017 Legacy OTTR Encounter Historical OTTR [address] [place] [address] Roxi Vazquez [facility] [address] [place] [address] Social History Tobacco Use Types Packs/Day Years [...] as of this encounter Care Teams Food And Beverage Operations Manager Relationship Specialty Start [place] [address] PCP - General 12/25/20 Enrique Griffith MD [address] [place] [address] Referring Physician Nephrology 01/08/21 documented as of this encounter
--- OUTSIDE RECORDS SUMMARY | 2025-08-10 01:54 | XMS_ITS | Encounter Summary ---
Author Organization [facility] Address [address] [place] [address] Care Team Providers Care Insurance Marketing Specialist Name Role Phone Ibrahima Fournier MD Primary Care Provider [phone] Enrique Griffith MD Unavailable [phone] Encounter Details Date Type Department Care Team (Late st Contact Info) Description 03/23/2017 Legacy OTTR Encounter Historical OTTR [address] [place] [address] Bridgett Márquez, RN [facility] LIVER [id number] [address] [place] [address] Social History Tobacco Use Types Packs/Day Years [...] EXTERNAL LAB - 03/23/2017 1:43 PM EDT [facility] us Historical Provider LAB BLOOD ORDERABLES Final R esult EXTERNAL LAB documented in this encounter Visit Diagnoses Not on filedocumented in this encounter Additional Health Concerns Infection Onset Date Last Indicated Resolved Time COVID-19 Rule-Out 11/08/2021 11/08/2021 11/08/2021 8:06 AM EDT documented as of this encounter Care Teams Insurance Marketing Specialist Relationship Specialty Start [place] [address] PCP - General 12/25/20 Enrique Griffith MD [address] [place] [address] Referring Physician Nephrology 01/08/21 documented as of this encounter
--- OUTSIDE RECORDS SUMMARY | 2025-08-10 01:54 | XMS_ITS | Encounter Summary ---
Author Organization [facility] Address [address] [place] [address] Care Team Providers Care Senior C Developer Name Role Phone Ibrahima Fournier MD Primary Care Provider [phone] Enrique Griffith MD Unavailable [phone] Encounter Details Date Type Department Care Team (Late st Contact Info) Description 08/28/2019 Legacy MANDO Encounter Historical OTTR [address] [place] [address] Tona Chaudhari [address] Social History Tobacco Use Types Packs/Day Years [...] for 09/30/19. * Progress Notes - Wesley ReddyLeakage Tester - 08/28/2019 2:51 PM EST Rec'd fwd'd VM, from [facility], requesting scheduling for vein mapping forpt., pt. has dialysis MWF, requested notification at: [phone]. Fwd'd VM to surgical team, RWG/HEW. documented in this encounter Plan of Treatment Not on file documented as of this encounter Visit Diagnoses Not on filedocumented in this encounter Additional Health Concerns Infection Onset Date Last Indicated Resolved Time COVID-19 Rule-Out 11/08/2021 11/08/2021 11/08/2021 8:06 AM EDT documented as of this encounter Care Teams Senior C Developer Relationship Specialty Start [place] [address] PCP - General 12/25/20 Enrique Griffith MD [address] [place] [address] Referring Physician Nephrology 01/08/21 documented as of this encounter
--- OUTSIDE RECORDS SUMMARY | 2025-08-10 01:54 | XMS_ITS | Encounter Summary ---
Author Organization [facility] Address [address] [place] [address] Care Team Providers Care Inspector Balance Truing Name Role Phone Ibrahima Fournier MD Primary Care Provider [phone] Enrique Griffith MD Unavailable [phone] Encounter Details Date Type Department Care Team (Late st Contact Info) Description 12/22/2016 Legacy OTTR Encounter Historical OTTR [address] [place] [address] Sandrita Ferguson, SUPERVISOR COLD ROLLING [address] [facility] [address] [place] [address] Social History Tobacco Use Types [...] as of this encounter Care Teams Inspector Balance Truing Relationship Specialty Start [place] [address] PCP - General 12/25/20 Enrique Griffith MD [address] [place] [address] Referring Physician Nephrology 01/08/21 documented as of this encounter
--- OUTSIDE RECORDS SUMMARY | 2025-08-10 01:55 | XMS_ITS | Encounter Summary ---
Author Organization [facility] Address [facility] [place] [address] Care Team Providers Care Applications Administrator Name Role Phone Maile Valles RN Unavailable Unavail able Estephania Sharif PharmD Unavailable Christine Edgar Tolentino MD Primary Care Provider [phone] Khari Lema MD Unavailable Stan Moise RN [...] release of HIV test results or diagnoses. [id number] Health Reason for Visit * Reason Comments Medical Problem Symptomatic 1st Atte mpt Encounter Details Date Type Department Care Team (Late st Contact Info) Description 06/27/2025 Telephone [facility] at [facility] Office [address] [place] [address] Lianet Mayen, RAMON [address] [place] [address] Medical Problem (Symptomatic 1st Attempt/) Social History Tobacco Use Types Packs/Day Years Used Date Smoking Tobacco: Never Smokeless Tobacco: Never Alcohol Use Standard Drinks/Week Comments Never 0 (1 standard drink = 0.6 oz pur e alcohol) [facility] Utilities Answer Date Recorded In [...] any time in the past 12 m [facility], were you homeless or living in a penitentiary (including now)? No 06/12/2025 Yearly Questionnaire Answer [...] as of this encounter Care Teams Applications Administrator Relationship Specialty Start Date End Date Edgar Fournier MD [address] [place] [address] [place] [address] PCP - General 06/12/25 Maile Valles, RN Txp Post Coordinator Transplant Hepatology 11/07/17 Estephania Sharif, PharmD Pharmacist Pharmacist 11/11/19 Khari Lema MD [address] [facility] [address] [place] [address] Txp Metal Furniture Assembly Supervisor Transplant Hepatology 05/29/25 Stan Moise, RN Registered Nurse 06/26/25 documented as of this encounter
--- OUTSIDE RECORDS SUMMARY | 2025-08-10 01:55 | XMS_ITS | Encounter Summary ---
Author Organization [facility] Address [address] [place] [address] Care Team Providers Care Naturopathic Physician Name Role Phone Ibrahima Fournier MD Primary Care Provider [phone] Enrique Griffith MD Unavailable [phone] Encounter Details Date Type Department Care Team (Late st Contact Info) Description 08/21/2017 [facility] Encounter Historical OTTR [address] [place] [address] Jack Ansari Social History Tobacco Use Types [...] 10:33 AM EST [facility] us Historical Provider LAB BLOOD ORDERABLES Final R esult EXTERNAL LAB documented in this encounter Visit Diagnoses Not on filedocumented in this encounter Additional Health Concerns Infection Onset Date Last Indicated Resolved Time COVID-19 Rule-Out 11/08/2021 11/08/2021 11/08/2021 8:06 AM EDT documented as of this encounter Care Teams Naturopathic Physician Relationship Specialty Start [place] [id number] PCP - General 12/25/20 Enrique Griffith MD [address] [place] [address] Referring Physician Nephrology 01/08/21 documented as of this encounter
--- OUTSIDE RECORDS SUMMARY | 2025-08-10 01:55 | XMS_ITS | Encounter Summary ---
Author Organization [facility] Address [address] [place] [address] Care Team Providers Care Signs Cleaner Name Role Phone Ibrahima Fournier MD Primary Care Provider [phone] Enrique Griffith MD Unavailable [phone] Encounter Details Date Type Department Care Team (Late st Contact Info) Description 08/30/2016 [facility] Encounter Historical OTTR [address] [place] [address] Bridgett Márquez, RN [facility] [id number] [address] [place] [address] Social History Tobacco Use Types Packs/Day Years [...] patient. He adv he was admitted to [facility] for pneumonia and possible kidney stones. He is home and feeling a little better. Will request records from [facility]. documented in this encounter Plan of Treatment Not on file documented as of this encounter Visit Diagnoses Not on filedocumented in this encounter Additional Health Concerns Infection Onset Date Last Indicated Resolved Time COVID-19 Rule-Out 11/08/2021 11/08/2021 11/08/2021 8:06 AM EDT documented as of this encounter Care Teams Signs Cleaner Relationship Specialty Start [place] [id number] PCP - General 12/25/20 Enrique Griffith MD [address] [place] [phone] Referring Physician Nephrology 01/08/21 documented as of this encounter
--- OUTSIDE RECORDS SUMMARY | 2025-08-10 01:55 | XMS_ITS | Encounter Summary ---
Author Organization [facility] Address [address] [place] [address] Care Team Providers Care Physics Teacher Name Role Phone Ibrahima Fournier MD Primary Care Provider [phone] Enrique Griffith MD Unavailable [phone] Encounter Details Date Type Department Care Team (Late st Contact Info) Description 08/11/2017 [facility] Encounter Historical OTTR [address] [place] [address] Shara Huff, FIRST AID TEACHER, DNP [address] [facility] [address] [place] [address] Social History Tobacco Use Types Packs/Day Years [...] cirrhosis, actively listed for transplant (at [facility]), who was admitted on 08/09 with c/o [...] on phone. * Progress Notes - Barry It Engineer - 07/26/2017 10:07 AM EST Spoke to Mr. Stauffer. is unable to work now as he needs more help at home. They are able to paymortgage but having trouble with utility bills. Suggested that he contact [employer] in his county as they are able to help people with utilities. Also advised him to contact his Medicaid [employer] for questions about addition assistance at home. [...] R esult Performing Organization Address [facility] de Phone Number EXTERNAL LAB * OTTR LAB RESULTS (MANUAL) (08/09/2017 3:06 PM EST) External Estimated GFR 52.27 EXTERNAL LAB 08/09/2017 3:06 PM EST Narrative EXTERNAL LAB - 08/09/2017 3:48 PM EST Automated LAB Interface Historical Provider LAB BLOOD ORDERABLES Final R esult Performing Organization Address [facility] de Phone Number EXTERNAL LAB * OTTR LAB RESULTS (MANUAL) (08/03/2017 11:29 PM EST) External Estimated GFR 56.45 EXTERNAL LAB 08/03/2017 11:2 9 PM EST Narrative EXTERNAL LAB - 08/04/2017 1:06 AM EST Automated LAB Interface [facility] Provider LAB BLOOD ORDERABLES Final R esult Performing Organization Address [facility] de Phone Number EXTERNAL LAB documented in this encounter Visit Diagnoses Not on filedocumented in this encounter Additional Health Concerns Infection Onset Date Last Indicated Resolved Time COVID-19 Rule-Out 11/08/2021 11/08/2021 11/08/2021 8:06 AM EDT documented as of this encounter Care Teams Physics Teacher Relationship Specialty Start [place] [id number] PCP - General 12/25/20 Enrique Griffith MD [address] [place] [id number] Referring Physician Nephrology 01/08/21 documented as of this encounter
--- OUTSIDE RECORDS SUMMARY | 2025-08-10 01:55 | XMS_ITS ---
Author Organization [facility] Address [address] [place] [address] Care Team Providers Care Manager Video Games Name Role Phone Maile Valles RN Unavailable Unavail able Estephania Sharif PharmD Unavailable Christine Edgar Tolentino MD Primary Care Provider [phone] Khari Lema MD Unavailable [phone] Stan Moise RN Unavailable Unavail able Dialysis [...] with long-term current use of insulin [place] ESRD (end stage renal disease) on dialysis ([facility] Pre-transplant evaluation for kidney transplant High risk [...] 11:24 AM EDT HEPATIC FUNCTION PANEL Routine 10/21/202 5 11:24 AM EDT HIV 1+2 ANTIBODY/ANTIGEN WITH REFLEX Routine 02/04/2025 12:48 PM EDT Essential (primary) hypertension Type 2 diabetes 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, with long-term current use of insulin ([facility] ESRD (end stage renal disease) on dialysis ([facility] Pre-transplant evaluation for kidney transplant Routine history and physical examination of adult HEMOGLOBIN A1C Routine 02/04/2025 12:48 PM EDT Essential (primary) hypertension Type 2 diabetes 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, with long-term current use of insulin ([facility] ESRD (end stage renal disease) on dialysis ([facility]) Pre-transplant evaluation for kidney transplant Routine history and physical examination of adult HEPATITIS C ANTIBODY Routine 02/04/2025 12:48 PM EDT Essential (primary) hypertension Type 2 diabetes 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, with long-term current use of insulin ([facility]) ESRD (end stage renal disease) on dialysis ([facility]) Pre-transplant evaluation for kidney transplant Routine history [...] mouth daily. 30 tablet 06/13/20 25 Active Active Problems Patient Care Coordination [...] non-formulary phosphate binder (xphozah) - Continue ergocalciferol 33851 TTS Primary hypertension 12/03/2024 Assessment & Plan [...] for prophylaxis/suppression. Hep B viral load at [facility] was detectable, but to low [...] home. He was getting once daily at [facility]. Will start lorazepam instead since [...] unit yesterday. PLAN: Continue epoetin 6000 units Mon/Wed/Mon Assessment & Plan (06/12/2020 3:52 PM EDT): [...] cyclosporine. Levels were below goal while at [facility]; dose increased. PLAN: Continue cyclosporine [...] BID Check LFTs and cyclosporine levels every Juan Miguel Assessment & Plan (06/13/2020 8:26 AM EDT): The patient is on cyclosporine. Will need weekly labs while on fluconazole. He is also taking entecavir chronically (donor was hepatitis B positive). Hep B levels at [facility] were detectable, but to low [...] drink = 0.6 oz pur e alcohol) [facility] Utilities Answer Date Recorded In the past 12 months has [employer], gas, oil, or water [employer] threatened to shut off services in your [...] time in the past 12 m [facility], were you homeless or living in a [place] health care facility (including now)? No 06/12/2025 Yearly Questionnaire Answer [...] scan (06/17/2025 4:36 PM EST) us Scanning Uchhi SCAN DOCS - NO RESULTS Final Res ult * (ABNORMAL) POC Glucose Monitoring Device (06/13/2025 8:20 AM EDT) Pathologist [facility] POC Glucose Monitoring Device 149(H) 70 - 100 mg/dL 06/13/2025 8:22 AM EDT [facility] Blood 06/13/2025 8:20 AM EDT 06/13/2025 8:21 AM EDT Cuong Dobson MD POINT OF CARE TEST ORDERABLES F inal Result [facility] [address] [id number] * (ABNORMAL) Renal Function Panel w/EGFR (06/13/2025 3:09 AM EDT) Sodium 132(L) 133 - 146 mmol/L 06/13/2025 3:48 AM EDT [facility] Potassium 5.0 3.5 - 5.3 mmol/L 06/13/2025 3:48 AM EDT [facility] Chloride 98 98 - 110 mmol/L 06/13/2025 3:48 AM EDT [facility] CO2 22 21 - 33 mmol/L 06/13/2025 3:48 AM EDT [facility] Comment:High lactate dehydro genase concentrations in patient samples may cause falsely increased bicarbonate results. If markedly elevated LDH is observed or suspected, please assess results in conjunction with patient`s clinical presentation. In cases of discrepant results, consider evaluating CO2 in with a blood gas order. Anion Gap 12 3 - 16 mmol/L 06/13/2025 3:48 AM EDT [facility] BUN 49(H) 7 - 25 mg/dL 06/13/2025 3:48 AM EDT [facility] Creatinine 8.83(H) 0.60 - 1.30 mg/dL 06/13/2025 3:48 AM EDT [facility] Glucose 171(H) 70 - 100 mg/dL 06/13/2025 3:48 AM EDT [facility] Calcium 8.5(L) 8.6 - 10.3 mg/dL 06/13/2025 3:48 AM EDT [facility] Phosphorus 5.1(H) 2.1 - 4.7 mg/dL 06/13/2025 3:48 AM EDT [facility] Albumin 3.9 3.5 - 5.7 g/dL 06/13/2025 3:48 AM EDT [facility] Osmolality, Calculated 291 278 - 305 mOsm/kg 06/13/2025 3:48 AM EDT [facility] EGFR 7 06/13/2025 3:48 AM [facility] Comment:As of 2021, [...] P[facility] LAB BLOOD ORDERABLES Final Resul t [facility] [address] * (ABNORMAL) CBC (06/13/2025 3:09 AM EDT) Only the most recent of2 resultswithin the time period is included. WBC 5.3 3.8 - 10.8 10E3/uL 06/13/2025 3:44 AM EDT [facility]ALTH [facility] RBC 4.22 4.20 - 5.80 10E6/uL 06/13/2025 3:44 AM EDT [facility] Hemoglobin 13.4 13.2 - 17.1 g/dL 06/13/2025 3:44 AM EDT [facility] Hematocrit 40.8 38.5 - 50.0 % 06/13/2025 3:44 AM EDT [facility] MCV 96.7 80.0 - 100.0 fL 06/13/2025 3:44 AM EDT [facility] MCH 31.7 27.0 - 33.0 pg 06/13/2025 3:44 AM EDT [facility] MCHC 32.8 32.0 - 36.0 g/dL 06/13/2025 3:44 AM EDT [facility] RDW 18.2(H) 11.0 - 15.0 % 06/13/2025 3:44 AM EDT [facility] Platelets 226 140 - 400 10E3/uL 06/13/2025 3:44 AM EDT [facility] MPV 7.7 7.5 - 11.5 fL 06/13/2025 3:44 AM EDT [facility] Whole Blood 06/13/2025 3:09 AM EDT 06/13/2025 3:22 AM EDT us Said Yomi PEREZ LAB BLOOD ORDERABLES Final Resul t [facility] [address] [place] [address], [facility] * (ABNORMAL) Lipid Profile (06/13/2025 3:09 AM EDT) Non-HDL Cholesterol, Calculated 140(H) 0 - 129 mg/dL 06/13/2025 3:48 AM EDT [facility] Comment: Desirable: < 130 mg/dL Above Desirable: 130-159 mg/dL Borderline High: 160-189 mg/dL High: 190-219 mg/dL Very High: > 219 mg/dL Cholesterol, Total 178 0 - 200 mg/dL 06/13/2025 3:48 AM EDT [facility] Triglycerides 308(H) 10 - 149 mg/dL 06/13/2025 3:48 AM EDT [facility] HDL 38(L) 60 - 92 mg/dL 06/13/2025 3:48 AM EDT [facility] Comment: LIPID PROFILE INTERPRETATION [...] LDL Cholesterol 78 mg/dL 3:48 AM EDT [facility] Plasma 06/13/2025 3:09 AM EDT 06/13/2025 3:22 AM EDT Narrative [facility] - 06/13/2025 3:48 AM EDT Can be obtained within 6 months prior to admission or during current admission LDL cholesterol calculated using the Friedewald equation. us Said Yomi [facility] LAB BLOOD ORDERABLES Final Resul t [facility] [address] * ECG 12 lead (MUSE) (06/12/2025 6:08 PM EDT) Only the most recent of2 resultswithin the time period is included. 06/12/2025 6:08 PM EDT Narrative MUSE - 06/14/2025 12:09 AM EDT Ventricular Rate: 99 BPM Atrial Rate: 99 BPM P-R Interval: 254 ms QRS Duration: 100 ms QT: 356 ms QTc: 456 ms P [place]view: 47 degrees R [place]view: 59 degrees T [place]view: -9 degrees Diagnosis Line: SINUS RHYTHM WITH 1ST DEGREE A-V BLOCK ^ OTHERWISE NORMAL ECG ^ ^ Confirmed by MD KELLER JULIANE ([id number]) on 06/14/2025 12:09:14 AM us Charlie Celaya MD ECG ORDERABLES Final Result MUSE * LEFT AND RIGHT HEART CATHETERIZATION (06/12/2025 5:56 PM EDT) 06/12/2025 4:38 PM EDT Narrative [facility] - 06/15/2025 12:28 PM EST *[facility]* Cardiac Medical Reimbursement Manager [address] [place] [address] CATHETERIZATION LAB STUDY Patient: Aiden Stauffer Age: 50 Study 06/12/2025 W Date: Patient [id number] Gender: M Study 04:38:52 PM ID: Time: [...] 90mg BID Loaded with 180 mg in soap slabber Continue high intensity statin Cardiac Rehab Radial Hemostasis- Admit to CVICU/PASSENGER BARGE MASTER/6S service Dc in am if stable INDICATIONS: [...] manner. 3. Right radial artery access. A [id number] Glidesheath - Slender - .021 sheath was [...] stenosis in the mid LAD. 1. A [id number] Pressure Wire X wire was placed. 2. Balloon angioplasty was performed. A 3mm (D) x 15mm (L), Balloon, NC Euphora balloon was employed. The balloon was placed across the lesion and given two inflations with a maximum inflation pressure of 15atm. 3. A .[id number] Runthrough NS extra floppy wire was placed. [...] + !LV pressure s/d, ed !119/10, 18, dP/eg=7236eg Hg/s! + + + !Aortic pressure s/d [...] and electronically signed by Cuong Dobson MD [id number]:[id number] Procedure Note Cuong Dobson MD - 06/15/2025 *[facility]* Cardiac Medical Reimbursement Manager [address] [place] [address] CATHETERIZATION LAB STUDY Patient: Aiden Stauffer Age: 50 Study 06/12/2025 W Date: Patient [id number] Gender: M Study 04:38:52PM ID: Time: : [...] 90mg BID Loaded with 180 mg in soap slabber Continue high intensity statin Cardiac Rehab Radial Hemostasis- Admit to CVICU/PASSENGER BARGE MASTER/6S service Dc in am if stable INDICATIONS: [...] manner. 3. Right radial artery access. A [id number] Glidesheath - Slender - .021 sheath was [...] stenosis in the mid LAD. 1. A [id number] Pressure Wire X wire was placed. 2. Balloon angioplasty was performed. A 3mm (D) x 15mm (L), Balloon, NC Euphora balloon was employed. The balloon was placed across thelesion and given two inflations with a maximum inflation pressure of 15atm. 3. A .[id number] Runthrough NS extra floppy wire was placed. 4. Stent placement was performed. A 3.5mm (D) x 32mm (L), Stent, Synergy MEGATRON stent was used. The stent was advanced across the lesion and deployed with a single inflation and a maximum pressure of 15atm. STUDY COMPLETION: The patient tolerated the procedure well. There wereno complications. Contrast: Omnipaque 350 150ml (total dose). [id number] 50ml (wasted). Radiation: Fluoroscopy time: 16.4min. Total [...] + !LV pressure s/d, ed !119/10, 18, dP/fb=3614xh Hg/s! + + + !Aortic pressure s/d [...] and electronically signed by Cuong Dobson MD [id number]:28:22 L[facility]et [facility] [id number] Final Result Performing Organization Address [facility] Co de Phone Number [facility] * POC Activated Clotting Time Low Range (06/12/2025 5:51 PM EDT) [facility] Activated Clotting Time, Low Range POC (4) OUT OF RANGE HI 113 - 149 seconds 06/13/2025 5:47 AM EDT [facility] Comment: ACT LOW RANGE TARGET RANGES: [...] ORDERABLES F inal Result Performing Organization Address [facility]/ZIP Co de Phone Number [facility] [address] [place], [place] [address] * (ABNORMAL) Basic metabolic panel (06/12/2025 1:06 PM EDT) Sodium 136 133 - 146 mmol/L 06/12/2025 2:07 PM EDT [facility] Potassium 5.2 3.5 - 5.3 mmol/L 06/12/2025 2:07 PM EDT [facility] Comment:Hemolysis Present: R esults may be influenced artificially. Recommend recollection as clinically indicated. Chloride 102 98 - 110 mmol/L 06/12/2025 2:07 PM EDT [facility] CO2 23 21 - 33 mmol/L 06/12/2025 2:07 PM EDT [facility] Comment:High lactate dehydro genase concentrations in patient samples may cause falsely increased bicarbonate results. If markedly elevated LDH is observed or suspected, please assess results in conjunction with patient`s clinical presentation. In cases of discrepant results, consider evaluating CO2 in with a blood gas order. Anion Gap 11 3 - 16 mmol/L 06/12/2025 2:07 PM EDT [facility] BUN 40(H) 7 - 25 mg/dL 06/12/2025 2:07 PM EDT [facility] Creatinine 7.61(H) 0.60 - 1.30 mg/dL 06/12/2025 2:07 PM EDT [facility] Glucose 123(H) 70 - 100 mg/dL 06/12/2025 2:07 PM EDT [facility] Calcium 8.5(L) 8.6 - 10.3 mg/dL 06/12/2025 2:07 PM EDT [facility] Osmolality, Calculated 293 278 - 305 mOsm/kg 06/12/2025 2:07 PM EDT [facility] EGFR 8 06/12/2025 2:07 PM EDT [facility] Comment:As of 2021, the [...] PM EDT 06/12/2025 1:21 PM EDT Narrative [facility] - 06/12/2025 2:07 PM EDT If not done within 14 days or previous BMP results were abnormal Kim Banerjee PAPERBOARD BOXES ESTIMATOR LAB BLOOD ORDERABLES Final Resul t Performing Organization Address [facility] Co de Phone Number [facility] [address] * Protime-INR (06/12/2025 12:08 PM EDT) Protime 13.1 12.1 - 15.1 seconds 06/12/2025 1:00 PM EDT [facility] INR 0.9 0.9 - 1.1 06/12/2025 1:00 PM EDT [facility] Comment: RECOMMENDED THERAPEUTIC RANGES USING INR : Stable oral anticoagulant therapy: 2.0 - 3.0 Mechanical prosthetic heart valve: 2.5 - 3.5 Recurrent acute myocardial infarction: 2.5 - 3.5 Plasma 06/12/2025 12:0 8 PM EDT 06/12/2025 12:48 PM EDT Narrative [facility] - 06/12/2025 1:00 PM EDT If not done within 14 days or preform day of procedure for any patients with liver issues or on Coumadin Kim Banerjee PAPERBOARD BOXES ESTIMATOR LAB BLOOD ORDERABLES Final Resul t Performing Organization Address [facility] Co de Phone Number [facility] [address] * Cardiac Cath Documents Scan (06/12/2025 5:58 AM EDT) Scanning Uchhim SCAN DOCS - NO RESULTS Final Res ult * Hepatic Function Panel (06/03/2025 11:24 AM EDT) [facility] Bilirubin, Direct 0.7 Bilirubin, Indirect 0.0 Alkaline Phosphatase 96 ALT 13 AST 18 Total Bilirubin 0.7 Total Protein 7.0 Plasma Narrative Resulting Agency Comment [facility] Result [facility] MD LAB BLOOD ORDERABLES Yoselin l Result * Cyclosporine level (06/03/2025 11:24 AM EDT) [facility] Cyclosporine, Blood 42 Whole Blood Result [facility] MD LAB BLOOD ORDERABLES Yoselin l Result * (ABNORMAL) CBC and differential (06/03/2025 11:24 AM EDT) [facility] Hemoglobin 13.7 13.5 - 17.5 g/dL [...] 4.3 10^3/mL Blood Narrative Resulting Agency Comment [facility] Result [facility] MD LAB BLOOD ORDERABLES Yoselin l Result * Renal Function Panel w/o EGFR (06/03/2025 11:24 AM EDT) [facility] Glucose 165 BUN 63 CO2 17 13 - 22 mmol/L Creatinine 10.20 Potassium 6.7 Sodium 138 Chloride 103 Phosphorus 4.7 2.5 - 4.9 mg/dL Calcium 8.5 EGFR 7 mg/dL Albumin 4.4 3.5 - 5.0 g/dL Blood Narrative Resulting Agency Comment [facility] Provider LAB BLOOD ORDERABLES Yoselin l Result * Hepatitis C antibody (02/04/2025 12:48 PM EDT) HCV Ab Nonreactive Nonreactive 02/04/2025 2:33 PM EDT [facility] Comment:Health Department no tified in accordance with reportable infectious disease guidelines. Serum 02/04/2025 12:4 8 PM EDT 02/04/2025 1:21 PM EDT Narrative [facility] - 02/04/2025 2:33 PM EDT Antibodies to HCV not detected; does not exclude the possibility of exposure to HCV. Ameya Arroyo MD LAB BLOOD ORDERABLES Final Resul t [facility] [address] * HIV-1 and HIV-2 antibodies (02/04/2025 12:48 PM EDT) HIV 1+2 AB/AGN Nonreactive Nonreactive 02/04/2025 2:27 PM EDT [facility] Serum 02/04/2025 12:4 8 PM EDT 02/04/2025 1:34 PM EDT Narrative [facility] - 02/04/2025 2:27 PM EDT \HIVRNR Ameya Arroyo MD LAB BLOOD ORDERABLES Final Resul t [facility] [address] * (ABNORMAL) Hemoglobin A1c (02/04/2025 12:48 PM EDT) Hemoglobin A1C 6.4(H) 4.0 - 5.6 % 02/04/2025 9:06 PM EDT [facility] Comment: Hemoglobin A1c [...] ORDERABLES Final Resul t Performing Organization Address City/State/[facility] Co de Phone Number [facility] [address] * Endoscopy, colon, diagnostic (03/23/2022 9:13 AM EDT) 03/23/2022 9:13 AM EDT Narrative [facility] - 03/23/2022 9:51 AM EDT [id number] Procedure Date: 03/23/2022 9:13 AM Patient Name: [...] verified by the physician, the nurse, the pourer bull ladle and the emissions testing and repair technician in the procedure room. Mental Status [...] for surveillance. Procedure Code(s): --- Professional --- 36886, GC, Colonoscopy, flexible; diagnostic, including collection of specimen(s) by brushing or washing, when performed (separate procedure) Diagnosis Code(s): --- Professional --- K64.8, Other hemorrhoids K92.1, Melena (includes Hematochezia) CPT copyright 2020 [employer]. All rights reserved. The codes documented in this report are preliminary and upon sandwich counter attendant review may be revised to meet current compliance requirements. ABA MOORE Aba Moore, 03/23/2022 9:51:42 AM Husam Wilmer Hoyos, 03/23/2022 9:50:30 AM Scope Withdrawal Time 0 hours 8 minutes 24 seconds Total Procedure Duration Time 0 hours 15 minutes 38 seconds Scope In: 9:18:06 AM Scope Out: 9:33:[address] [place] [address] [id number] us Provider Not In System GI PROCEDURE ORDERABLES F inal Result [facility] [address] [place] [address] * (ABNORMAL) Occult Blood (06/15/2020 9:10 AM EST) Occult Blood, Stool #1 Positive(A ) Negative 06/15/2020 1:39 PM EST [facility] Stool specimen (specimen) FECES / Unknown 06/15/2020 9:10 AM EST 06/15/2020 11:52 AM EST Comment:F us Yessy Molina MD BODY FLUIDS AND STOOLS ORDERABLES Final Result [facility] [address] [place] [address], [facility] from Last 3 Months or Most Recently Relevant to Health Maintenance
--- OUTSIDE RECORDS SUMMARY | 2025-08-10 01:55 | XMS_ITS ---
Author Name [facility], Clinic Address [address] [place] [address] Phone [phone] Organization [facility] e, NA DOCUMENT DISCLAIMER Multiple document versions may exist, please be sure you review the latest version. The information in the [facility] Continuity of Care Document represents a summary of certain health and medical information. It may not contain the complete medical history for the patient and should be independently verified. The represented time in the document is Eastern Time. 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 Active August 07, 2024 Other disorders of phosphorus metabolism E83.39 Active August 01, 2024 Other complication of vascul ar dialysis catheter, subsequent encounter T82.49XD Active May 14, 2024 Breakdown (mechanical) of va scular dialysis catheter, initial encounter T82.41XA Active April End stage renal disease N18.6 Active Sept ember 2023 Other complication of vascul ar dialysis catheter, initial encounter T82.49XA Active April 17, 2024 End stage renal disease N18.6 Active Kevin 2023 Hyperkalemia E87.5 Active August 16 4 Hypocalcemia E83.51 Active June 12 3 Secondary hyperparathyroidism of renal origin N25.81 Active January 31, 2023 continuous churn buttermaker (current) use of opiate analgesic Z79.891 Active December 08, 2022 continuous churn buttermaker (current) use of insulin Z79.4 Active December 08, 2022 penitentiary (current) use of aspirin Z79.82 Active December 08, 2022 penitentiary (current) use of antimetabolite agent Z79.63 1 Active December 08, 2022 continuous churn buttermaker (current) use of calcineurin inhibitor Z79.6 21 Active December 08, 2022 Iron deficiency anemia, unspecified D50.9 Activ e December 02, 2022 Hyperkalemia E87.5 Active December 01, 2022 Disorder of phosphorus metabolism, 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 Active December 01, 2022 Encounter for therapeutic drug level monitoring Z51.81 Active November 28, 2022 Fluid overload, unspecified E87.70 Active November 28, 2022 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 Active Apri l 2022 Anemia in chronic kidney disease D63.1 Active November 18, 2022 Hypertensive chronic kidney disease with stage 5 chronic kidney disease or end stage renal disease I12.0 Active November 18, 2022 continuous churn buttermaker (current) use of i nhibitors of nucleotide synthesis Z79.624 Active November 18, 2022 Long-term (current) use of i njectable non-insulin antidiabetic drugs Z79.85 Active November 18, 2022 continuous churn buttermaker (current) use of aspirin Z79.82 Active November [...] Characteristics of Home environment No Information Available Gender and Sex Information Gender Identity Sexual Orientation Male Heterosexual MEDICATIONS Prescribed Medications for Dialysis Treatments Medication Instructions Dosage Route Start Date End Date Stat us Heparin Pork 1,000 Units/mL CatheterLock SelfAdmin Home Arterial Every Treatment 2500 units Arterial Red Port August 19, 2024 August 18, 2025 Active Heparin Pork 1,000 Units/mL CatheterLock SelfAdmin Home Venous Every Treatment 2500 units Venous Blue Port August 19, 2024 August 18, 2025 Active Heparin Pork 1,000 Units/mL Systemic Self Administer Home Bolus, Every Treatment 8000 units Intravenous - push June 10, 2025 June 09, 2026 Active Home Medications Medication Instructions Dosage Route Start Date End Date Status alprazolam 0.5 mg Take by mouth once a day as needed 1 tablet ORAL July 08, 2024 Active Shilpi Low Dose Aspirin 81 mg Take by mouth once a day 1 tablet ORAL November 12, 2019 Active calcitriol 0.25 mcg Take three times a week 1 capsule ORAL May 09, 2025 Active carbamazepine 200 mg Take by mouth twice a day 1 tablet ORAL July 08, 2024 Active carvedilol 3.125 mg Take by mouth twice a day as directed 1 tablet ORAL July 08, 2025 Active CellCept 250 mg Take by mouth twice a day 1 capsule ORAL November 12, 2019 Active cyclosporine 25 mg Take by mouth [...] 1 tablet ORAL July 08, 2024 Active Fish Oil 120-180 mg ORAL April 01, 2025 Active folic acid 1 mg Take by mouth once a day as directed 1 tablet ORAL December 08, 2022 Active Humulin N NPH Insulin KwikPen 100 unit/mL (3 mL) Inject subcutaneously 40 unit SUBCUTANEOUS April 01, 2025 Active hydralazine 100 mg Take by mouth three times a day 1 tablet ORAL July 08, 2024 Active montelukast 10 mg Take by mouth [...] 1 tablet ORAL December 08, 2022 Active polyethylene glycol 3350 17 gram Take by mouth once a day as needed 1 packet ORAL July 08, 2024 Active promethazine 25 mg Take by mouth every eight hours as needed 1 tablet ORAL November 14, 2023 Active sennosides-docusa te sodium 8.6-50 mg Take by mouth every night 1 capsule ORAL August 20, 2024 Active sodium bicarbonate 650 mg twice a day ORAL March 24, 2025 Active testosterone cypionate 200 mg/mL Inject intramuscularly as directed 1 kit INTRAMUSCULAR November 14, 2023 Active Tums 200 mg calcium (500 mg) Take by mouth twice a day as directed 2 tablet ORAL August 01, 2024 Active Veltassa 8.4 gram Take by mouth once a day 1 packet ORAL June 04, 2025 Active Xphozah 30 mg Take three times a day with meals 1 tablet ORAL October 12, 2023 Active Zofran 4 mg Take by mouth every six hours as needed 1 tablet ORAL February 12, 2020 Active VITAL SIGNS Post-Treatment Vital Signs Vital Sign Value Date / Time Blood Pressure-sitting 117/75 mmHg August 03, 2025 07:41 PM Blood Pressure-standing 118/75 mmHg August 03, 2025 07:41 PM Heart Rate 90 beats per minute August 03, 2025 07:41 PM Temperature 98 deg. F August 03 07:41 PM Weight Vital Sign Value Date / Time Estimated Dry Weight 128 kg December 19 11:59 PM Pre-Dialysis 129.8 kg August 03 07:41 PM Post-Dialysis 127.4 kg August 03 07:41 PM Other Other Value Date / Time Height 175.26 cm November 28, 2022 1 2:00 AM Body Mass Index 41.80 kg/m2 August 01 11:35 AM HEALTH CONCERNS Tuberculosis Testing TST Date Administered TST Date Read TST Result 11/28/2022 12/01/2022 Negative (<5) mm LAB RESULTS Hematology Result Type Result Value Relevant Referen ce Range Interpretation Date Folate, Serum 17.7 ng/mL No Reference Ran ge Provided - August 27, 2024 Neutrophils 62.7 % 40.0 - 75.0 % - February 25 025 Ferritin 171 ng/mL 22 - 322 ng/mL - February 25 025 Transferrin Sat. (Calc) 20 % 20 - 55 % - 2025 TIBC 301 mcg/dL 185 - 515 mcg/dL - 2025 Platelets 281 1000/mcL 130 - 400 1000/mcL - 2025 WBC (No Diff) 5.74 1000/mcL 4.80 - 10.80 1000/mcL - 2025 UIBC (Calc) 241 mcg/dL 155 - 355 mcg/dL - February Neutrophils 61.2 % 40.0 - 75.0 % - March 25, 2025 Platelets 285 1000/mcL 130 - 400 1000/mcL - Augu st 2024 WBC (No Diff) 7.05 1000/mcL 4.80 - 10.80 1000/mcL - March 25, 2025 TIBC 292 mcg/dL 185 - 515 mcg/dL - March 142024 UIBC (Calc) 232 mcg/dL 155 - 355 mcg/dL - March 25, 2025 Transferrin Sat. (Calc) 21 % 20 - 55 % - March 25, 2025 Ferritin 152 ng/mL 22 - 322 ng/mL - March 25, 2025 WBC (No Diff) 5.85 1000/mcL 4.80 - 10.80 1000/mcL - April 24, 2025 Neutrophils 62.5 % 40.0 - 75.0 % - April 24, 2025 Platelets 262 1000/mcL 130 - 400 1000/mcL - Apr ember 2024 UIBC (Calc) 232 mcg/dL 155 - 355 mcg/dL - Apremb er 2024 Transferrin Sat. (Calc) 25 % 20 - 55 % - April 24 TIBC 309 mcg/dL 185 - 515 mcg/dL - Aprembe r 2024 Ferritin 135 ng/mL 22 - 322 ng/mL - April 24, 2025 RDW 17.1 % 11.5 - 14.5 % High May 28, 2025 Platelets 228 1000/mcL 130 - 400 1000/mcL - Octo 2024 Hemoglobin x 3 39.9 % 42.0 - 54.0 % Low May 28, 2025 Neutrophils 63.3 % 40.0 - 75.0 % - May Lymphocytes 23.7 % 19.0 - 48.0 % - May Iron 87 mcg/dL 45 - 160 mcg/dL - May 142024 UIBC (Calc) 214 mcg/dL 155 - 355 mcg/dL - May 28, 2025 Ferritin 224 ng/mL 22 - 322 ng/mL - May TIBC 301 mcg/dL 185 - 515 mcg/dL - May 28, 2025 Transferrin Sat. (Calc) 29 % 20 - 55 % - May 28, 2025 ISAEL 2.4 % 0.0 - 4.0 % - May 28, 025 Basophils 0.4 % 0.0 - 1.5 % - May 28 025 Eosinophil 2.2 % 0.0 - 7.0 % - May 28 025 Monocytes 8.1 % 3.0 - 10.0 % - May 28, 2025 WBC (No Diff) 5.37 1000/mcL 4.80 - 10.80 1000/mcL - May 28, 2025 MCHC 30.6 g/dL 30.0 - 36.0 g/dL - May 28, 2025 MCH 31.0 pg 27.0 - 31.0 pg - May RDW 16.9 % 11.5 - 14.5 % High June MCH 32.1 pg 27.0 - 31.0 pg High June 142024 MCHC 30.0 g/dL 30.0 - 36.0 g/dL - June 25, 2025 WBC (No Diff) 5.75 1000/mcL 4.80 - 10.80 1000/mcL - June 25, 2025 Hemoglobin x 3 42.0 % 42.0 - 54.0 % - Novembe r 2024 Platelets 350 1000/mcL 130 - 400 1000/mcL - Nove mb 2024 Lymphocytes 27.5 % 19.0 - 48.0 % - June 142024 Monocytes 6.6 % 3.0 - 10.0 % - June 25, 2025 Neutrophils 58.9 % 40.0 - 75.0 % - June 142024 ISAEL 4.1 % 0.0 - 4.0 % High June 25, 2025 Eosinophil 2.4 % 0.0 - 7.0 % - June 25, 2025 Basophils 0.5 % 0.0 - 1.5 % - June 25, 2025 Ferritin 347 mcg/dL No Reference Ran ge Provided Normal July 23, 2025 Iron 84 mcg/dL No Reference Ran ge Provided Normal July 23, 2025 Transferrin Sat. (Calc) 24 mcg/dL No Reference Range Provided Normal July 23, 2025 HGB 13.4 g/dL No Reference Ran ge Provided Normal July 23, 2025 HCT 42.2 % No Reference Ran ge Provided Normal August 05, 2025 Metabolic/Renal Result Type Result Value Relevant Referen ce Range Interpretation Date Hemoglobin A1c 6.7 % 4.8 - 5.9 % High 2025 Hemoglobin A1c 6.2 % 4.8 - 5.9 % High May 142024 URR, Calc 47 % 65 - 80 % Low May 28 Bicarbonate 16 mEq/L 20 - 31 mEq/L Low May BUN 59 mg/dL 6 - 19 mg/dL High May 28, 2025 Creatinine, Serum 10.65 mg/dL 0.60 - 1.30 mg/dL High May 28, 2025 Potassium 6.9 mEq/L 3.5 - 5.1 mEq/L High May 142024 Chloride 107 mEq/L 96 - 108 mEq/L - May BUN/Creat Ratio 5.5 10.0 - 20.0 Low May 28, 2025 Sodium 134 mEq/L 136 - 145 mEq/L Low May 142024 Potassium, Post 5.2 mEq/L 3.5 - 5.1 mEq/L High Octo 2024 BUN, Post 31 mg/dL 6 - 19 mg/dL High May 28, 2025 BUN, Post 22 mg/dL 6 - 19 mg/dL High June 25, 2025 Potassium, Post 4.6 mEq/L 3.5 - 5.1 mEq/L - [facility] 2024 Potassium 6.0 mMol/L No Reference Ran ge Provided Normal July 23, 2025 Creatinine, Serum 10.06 mg/dL No Reference R rosa Provided Normal July 23, 2025 Sodium 138 mMol/L No Reference Ran ge Provided Normal July 23, 2025 Chloride 105 mMol/L No Reference Ran ge Provided Normal July 23, 2025 BUN 63 mg/dL No Reference Ran ge Provided Normal July 23, 2025 HD Adequacy Result Type Result Value Relevant Referen ce Range Interpretation Date wstdKt/V 2.1 No Reference Ran ge Provided - May 28, 2025 wstdKt/V, residual 0.0 No Reference Range Provided - May 28, 2025 Simple Kt/V (Home HD Only) 0.64 No Reference Range Provided Normal May 28, 2025 spKt/V Daugirdas II (HHD) 0.74 No Reference Range Provided Normal May 28, 2025 wstdKt/V without residual 2.1 No Reference Range Provided - May 28, 2025 Bone/Mineral Result Type Result Value Relevant Referen ce Range Interpretation Date Magnesium 2.0 mg/dL 1.6 - 2.6 mg/dL - August 142024 Vitamin D 25 Hydroxy 80.6 ng/mL 30.0 - 100.0 ng/mL - August 27, 2024 Magnesium 1.8 mg/dL 1.6 - 2.6 mg/dL - October 30, 2024 Magnesium 2.0 mg/dL 1.6 - 2.6 mg/dL - November 18, 2024 PTH-Intact, Plasma 188 pg/mL 16 - 80 pg/mL High Feb Magnesium 2.1 mg/dL 1.6 - 2.6 mg/dL - 2025 PTH-Intact, Plasma 269 pg/mL 16 - 80 pg/mL High Mar ust 2024 PTH-Intact, Plasma 255 pg/mL 16 - 80 pg/mL High Sep tember 2024 PTH-Intact, Plasma 252 pg/mL 16 - 80 pg/mL High May get 2024 Magnesium 2.2 mg/dL 1.6 - 2.6 mg/dL - May 142024 Phosphorus 4.6 mg/dL 2.6 - 4.5 mg/dL High May 142024 Calcium, Total 8.4 mg/dL 8.7 - 10.4 mg/dL Low Octo laureano 2024 Corrected Ca x P Product 39 0 - 54 - May 28, 2025 Ca x P Product 39 0 - 54 - May Alkaline Phosphatase 78 U/L 40 - 129 U/L - Oc tob2024 PTH-Intact, Plasma 196 pg/mL 16 - 80 pg/mL High Nov ember 2024 Phosphorus 4.5 mg/dL No Reference Ran ge Provided Normal July 23, 2025 Calcium, Total 8.9 mg/dL No Reference Ran ge Provided Normal July 23, 2025 Liver/Nutrition Result Type Result Value Relevant Reference Range Interpre tation Date LDH 256 U/L 118 - 273 U/L - February 25 25 Globulin (Calc) 2.5 g/dL 2.0 - 4.0 g/dL - Octob er 2024 A/G Ratio 1.6 1.0 - 2.0 - May 28 25 Glucose 118 mg/dL 70 - 100 mg/dL High May SGOT (AST) 22 U/L 13 - 39 U/L - May 28 SGPT (ALT) 14 U/L 7 - 52 U/L - May 28 Total Protein 6.5 g/dL 6.0 - 8.5 g/dL - May 28, 2025 Albumin (BCG) 4.0 g/dL 3.5 - 5.2 g/dL - May 28, 2025 GGT 28 U/L 8 - 61 U/L - May 28 LDH 360 U/L 118 - 273 U/L High May 28, 2025 Immunochemistry Result Type Result Value Relevant Reference Range Interpre tation Date HCV s/co ratio < 0.02 0.00 - 0.79 - August 142024 HCV s/co ratio 0.09 0.00 - 0.79 - 2025 Albumin 4.4 g/dL No Reference Ran ge Provided Normal July 23, 2025 Urinalysis Result Type Result Value Relevant Reference Range Interpre tation Date Protein 7.4 g/dL No Reference Range Provided Normal July 23, 2025 Trace Elements Result Type Result Value Relevant Reference Range Interpre tation Date Aluminum 9 mcg/L 0 - 10 mcg/L - November 18 Infectious Diseases Result Type Result Value Relevant Referen ce Range Interpretation Date Hep B Surface Ab (anti-HBs) 183 mIU/mL No Reference Range Provided - August 27, 2024 HCV Ab (anti-HCV) Nonreactive No Reference R rosa Provided - 2025 Hep B Surface Ag (HBsAg) Negative No Reference Range Provided - June 25, 2025 DIALYSIS PRESCRIPTION NxStage Hemodialysis Data Element Value Order Date/Time December 19, 2024 Frequency 4X Week Treatment Days [facility] Dialyzer/Cartridge CAR 172 Therapy Fluid (dialysate) 1.0 K 40 Lacta te Estimated Treatment Time 180 min Volume per Treatment (Liters) 50 L Dialysate Flow Rate 17 L/hr Maximum Flow Fraction (%) 250% Maximum Ultrafiltration Rate 1 ml/Kg/hr Blood Flow Rate (mL/min) 450 mL/min Estimated Dry Weight 128 kg Dialysis Access Hemodialysis-CV Cath eter-Tunneled, Chest, Right Jugular Access Placed on April 18, 2024 TRANSPLANT WAITLIST STATUS No Information on Transplant Waitlist Status ADVANCE DIRECTIVES Directive Description Ordered By Effective Date Resuscitation status Full Code Man Sky Nov 27, 2024 DIALYSIS TREATMENTS NxStage-HHD Date Pre-Treatment Vitals Post-Treatment Vitals Durat ion(hr) Exchanges BFR(mL/min) Cartridge Type Dialysate Dialysis Access Meds-entered by patient Violetta 2024 Weight 131.2 kg Weight 128 kg 3:17 1 of 16 200 CAR-172 1K 40 L actate Blood Pressure-sitting 132/88 mmHg Blood Pressure-sitting 11 6/85 mmHg 2 of 16 - Blood Pressure-standing 130/87 mmHg Blood Pressure-standing 118/83 mmHg 3 of 16 290 Heart Rate 88 beats per minute Heart Rate 94 beats per minute 4 of 16 270 Temperature 98.1 deg. F Temperature 98.1 deg. F 5 of 16 27 0 - - - - 6 of 16 290 - - - - 7 of 16 290 - - - - 8 of 16 290 - - - - 9 of 16 290 - - - - 10 of 16 300 - - - - 11 of 16 310 - - - - 12 of 16 330 - - - - 13 of 16 330 - - - - 14 of 16 - - - - - 15 of 16 - - - - - 16 of - August 02, 2025 Weight 131 kg Weight 127.5 kg 2:20 1 of 10 410 CAR-172 1K 40 Lactate Hemodialysis-CV Catheter-Tunneled, Chest, Right Jugular Access Placed on April 18, 2024 Heparin 4000 Access Blood Pressure-sitting 148/94 mmHg Blood Pressure-sitting 12 4/87 mmHg 2 of 10 410 Blood Pressure-standing 147/93 mmHg Blood Pressure-standing 122/85 mmHg 3 of 10 390 Heart Rate 94 beats per minute Heart Rate 99 beats per minute 4 of 10 390 Temperature 98.2 deg. F Temperature 98.1 deg. F 5 of 10 39 0 - - - - 6 of 10 390 - - - - 7 of 10 390 - - - - 8 of 10 410 - - - - 9 of 10 410 - - - - 10 of August 03, 2025 Weight 129.8 kg Weight 127.4 kg 2:21 1 of 7 370 CAR-172 1K 40 Lactate Hemodialysis-CV Catheter-Tunneled, Chest, Right Jugular Access Placed on April 18, 2024 Heparin 4000 Access Blood Pressure-sitting 136/82 mmHg Blood Pressure-sitting 11 7/75 mmHg 2 of 7 380 Blood Pressure-standing 134/81 mmHg Blood Pressure-standing 118/75 mmHg 3 of 7 380 Heart Rate 96 beats per minute Heart Rate 90 beats per minute 4 of 7 380 Temperature 98 deg. F Temperature 98 deg. F 5 of 7 380 - - - - 6 of 7 390 - - - - 7 of 7 -
--- OUTSIDE RECORDS SUMMARY | 2025-08-10 01:55 | XMS_ITS | Clinical Summary ---
Author Organization [facility] Address [address] [place] [address] Care Team Providers Care Leather Leveler Name Role Phone Maile Valles RN Unavailable Unavail able Estephania SharifD Unavailable Christine Edgar Tolentino MD Primary Care Provider [phone] Khari Lema MD Unavailable [phone] Stan Moise RN Unavailable Unavail able Source [...] therelease of HIV test results or diagnoses. [id number] Allergies Active Allergy Reactions Criticality Noted [...] mouth daily with breakfast. 90 tablet 5 9:40 AM EDT 06/13/20 Active aspirin 81 MG EC tablet Take [...] non-formulary phosphate binder (xphozah) - Continue ergocalciferol 45579 TTS Primary hypertension 12/03/2024 Assessment & Plan [...] for prophylaxis/suppression. Hep B viral load at [facility] was detectable, but to [...] home. He was getting once daily at [facility]. Will start lorazepam instead [...] unit yesterday. PLAN: Continue epoetin 6000 units Mon/Wed/Fri Assessment & Plan (06/12/2020 3:52 PM EDT): Hemoglobin is 7.0, but was 6.9 earlier this week. He was not transfused at that time due to difficulty finding matched blood. Will transfuse today. PLAN: Transfuse 1 unit of packed red blood cells on Juan Miguel. Assessment & Plan (06/11/2020 1:38 PM EDT): [...] cyclosporine. Levels were below goal while at [facility]; dose increased. PLAN: Continue [...] hepatitis B positive). Hep B levels at [facility] were detectable, but to [...] not elsewhere classified 11/12/20192019 Nausea 11/12/2019 06/08/2020 custodial (current) use of insulin 11/12/2019 06/08/2020 Hypocalcemia 11/12/2019 06/08/2020 Group C streptococcal infection 07/20/2019 06/08/2020 Diarrhea in adult patient 06/28/2019 Unstable angina pectoris 06/04/2018 Overview (06/04/2018): Added automatically from request for surgery [id number] Abnormal stress test 06/04/2018 022 Overview (06/04/2018): Added automatically from request for surgery [id number] Assessment & Plan (06/26/2022 1:30 PM EST): [...] Encounters Date Type Department Care Team Description 08/04/2025 Telephone [facility] Kidney Transplant at [address] [place] [address] Stan Moise, RN 07/22/2025 Refill [facility] Internal Medicine at [address] [place] [phone] June Chi MD 07/03/2025 Telephone [facility] Cardiology at [facility] [address] [place] [phone] Lianet Mayen CNP Medication Management (Medication Regimen ) 06/27/2025 Telephone [facility] Cardiology at [facility] [address] [place] [phone] Lianet Mayen CNP Medical Problem (Symptomatic 1st Attempt/) 06/26/2025 Telephone [facility] Kidney Transplant at [place] [address] [facility] [address] [place] [phone] Stan Moise RN 06/18/2025 Telephone [facility] Cardiology at [facility] [address] [place] [phone] Lianet Mayen CNP Results (Fax Results 1st Attempt ) 06/16/2025 Results Follow-Up [facility] Cardiac Regulatory Affairs Intern [address] [place] [address] Amber Galdamez RN Cardiac Cath 06/12/2025 2:58 PM EDT - 06/12/2025 3:59 PM EDT Surgery [facility] Cardiac Regulatory Affairs Intern [address] [place] [address] Cuong Dobson MD Left and Right Heart Cath 06/12/2025 11:37 AM EDT - 06/13/2025 9:45 AM EDT Hospital Encounter [facility] CVR [address] [place] [address] Cuong Dobson MD H/O heart artery stent (Primary Dx); Essential (primary) hypertension; Type 2 diabetes 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, with long-term current use of insulin ([facility]); ESRD (end stage renal disease) on dialysis ([facility]); Pre-transplant evaluation for kidney transplant; High risk surgery, pre-operative cardiovascular examination Discharge Disposition: Home or Self Care WITHOUT Home Care Services 06/06/2025 Telephone [facility] Kidney Transplant at [address] [place] [phone] Stan Moise, JANA 06/05/2025 Telephone [facility] Cardiology at [facility] [address] [place] [phone] Betty Fox, JANA 06/04/2025 Telephone [facility] Liver Transplant at [address] [place] [phone] Shanthi Nina MA Consult; Results 06/03/2025 Chart Note [facility] Liver Transplant at [address] [place] [phone] Genevieve Palencia MA 06/03 Labs entered from [facility] 06/03/2025 Telephone [facility] Liver Transplant at [address] [place] [phone] Genevieve Palencia MA 05/29/2025 Orders Only [facility] Liver Transplant at [address] [place] [address] Maile Valles, JANA S/P liver transplant ([facility]) (Primary Dx); Immunosuppression ([facility]) 05/28/2025 Telephone [facility] Liver Transplant at [address] [place] [phone] Bridgett Ansari MA 05/16/2025 Telephone [facility] Cardiology at [facility] [address] [place] [address] Lianet Mayen CNP Orders (Order Clarification Request ) 05/12/2025 Telephone [facility] Kidney Transplant at [facility] [address] [facility] [address] [place] [address] Genny Campos MA from Last [...] drink = 0.6 oz pur e alcohol) [facility] [employer] Answer Date Recorded In the past 12 months has th e [employer], gas, oil, or water [email or web address] threatened to shut off services in your [...] in the past [facility], were you homeless or living [...] Follow Up 03/23/2023 0 03/23/2022, 03/23/2022, 03/23/2022 Osteoporosis Screening (DXA Scan) 02/26/2024 016 Immunization: Influenza (MyC hicks) (#1) 2025 04/29/2024, 08/08/2017 Hemoglobin A1C Monitoring (MyChart) 08/06/2025 02/04/2025, 11/18/2024, 08/09/2024, Additional history exists Depression Screening 04/21/2026 04/21/2025, 02/05/2025, 09/10/2024, Additional history exists Renal Function/GFR 06/13/2026 06/13/2025, 1 , 06/03/2025, Additional history exists Lipid Panel 06/13/2030 06/13/2025, 01/13, 04/07/2022, Additional history exists Colonoscopy 03/23/2032 03/23/2022, 03/14, 03/23/2022 Colorectal Cancer Screening (MyChart) 03/23/2032 HIV Screening Completed 02/04/2025, 09/0 11/2023, 03/18/2022, Additional history exists Hepatitis C Screening (MyChart) Completed 02/04/2025, 04/17/2024, 11/04/2023, Additional history exists Immunization: HPV (No Doses Required) Completed Medical Devices Implanted Type Area Pipeline Operator Device Identifier Shelf Expiration Date Model / Serial / Lot Ellen Parrymax - [id number] Implanted:Qt y: 1 on 04/18/2024 by Odette Weston CNP at [facility] CatheterImp [employer] 08/13/2025 [id number] / / [id number] System Cardiac Cardiomems Pulmonary Artery Sensor Delivery Implanted:Qt y: 1 on 06/23/2022 by Fermín Schulte MD at [facility] Pacemaker Left: Lung [facility] [employer] 03/29/2024 CM PATIENT SYSTEM / / [id number] Cor Stnt 3.5mm 32mm Sng Megatron Everolimus Pltn Cr System Lv Prox Implanted:Qt y: 1 on 06/12/2025 by Cuong Dobson MD at [facility] Stent Left: Coronary [employer] [id number] 12/10/2026 [id number] / / [id number] Description:mid LAD Liver Implanted:Qt y: 1 on 10/08/2017 by Ami Rossi MD at [facility] N/A: Abdomen [id number] / [id number] / [id number] Description:left center Procedures Procedure Name Priority Date/Time [...] disease, with long-term current use of insulin ([facility]) ESRD (end stage renal disease) on dialysis ([facility]) Pre-transplant evaluation for kidney transplant High risk [...] HEPATIC FUNCTION PANEL Routine 11:24 AM EDT HIV 1+2 ANTIBODY/ANTIGEN WITH REFLEX Routine 02/04/2025 12:48 PM EDT Essential (primary) hypertension Type 2 diabetes 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, with long-term current use of insulin ([facility]) ESRD (end stage renal disease) on dialysis ([facility]) Pre-transplant evaluation for kidney transplant Routine history and physical examination of adult HEMOGLOBIN A1C Routine 02/04/2025 12:48 PM EDT Essential (primary) hypertension Type 2 diabetes 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, with long-term current use of insulin ([facility]) ESRD (end stage renal disease) on dialysis ([facility]) Pre-transplant evaluation for kidney transplant Routine history and physical examination of adult HEPATITIS C ANTIBODY Routine 02/04/2025 12:48 PM EDT Essential (primary) hypertension Type 2 diabetes 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, with long-term current use of insulin ([facility]) ESRD (end stage renal disease) on dialysis ([facility]) Pre-transplant evaluation for kidney transplant Routine history [...] TEST ORDERABLES F inal Result [facility] [address] * (ABNORMAL) Renal Function Panel w/EGFR [...] - 16 mmol/L 06/13/2025 3:[address] [facility] BUN 49(H) 7 - 25 mg/dL 06/13/2025 3:[address] [facility] Creatinine 8.83(H) 0.60 - 1.30 mg/dL 06/13/2025 3:[address] [facility] Glucose 171(H) 70 - 100 mg/dL 06/13/2025 3:[address] [facility] Calcium 8.5(L) 8.6 - 10.3 mg/dL 06/13/2025 3:[address] [facility] Phosphorus 5.1(H) 2.1 - 4.7 mg/dL 06/13/2025 3:[address] [facility] Albumin 3.9 3.5 - 5.7 g/dL 06/13/2025 3:[address] [facility] Osmolality, Calculated 291 278 - 305 mOsm/kg 06/13/2025 3:[address] [facility] EGFR 7 06/13/2025 3:[address] [facility] Comment:As of 2021, the estimated [...] ORDERABLES Final Resul t Performing Organization Address City/[facility]/ZIP Co de Phone Number [facility] [address] [place] [address], [facility] * (ABNORMAL) CBC (06/13/2025 3:09 AM EDT) Only the most recent of2 resultswithin the time period is included. WBC 5.3 3.8 - 10.8 10E3/uL 06/13/2025 3:44 AM EDT [facility] RBC 4.22 4.20 - 5.80 10E6/uL 06/13/2025 3:[address] [facility] Hemoglobin 13.4 13.2 - 17.1 g/dL 06/13/2025 3:[address] [facility] Hematocrit 40.8 38.5 - 50.0 % 06/13/2025 3:[address] [facility] MCV 96.7 80.0 - 100.0 fL 06/13/2025 3:[address] [facility] MCH 31.7 27.0 - 33.0 pg 06/13/2025 3:[address] [facility] MCHC 32.8 32.0 - 36.0 g/dL 06/13/2025 3:[address] [facility] RDW 18.2(H) 11.0 - 15.0 % 06/13/2025 3:[address] [facility] Platelets 226 140 - 400 10E3/uL 06/13/2025 3:[address] [facility] MPV 7.7 7.5 - 11.5 fL 06/13/2025 3:[address] [facility] Whole Blood 06/13/2025 3:09 AM EDT 06/13/2025 3:22 AM EDT us Said Yomi PEREZ LAB BLOOD ORDERABLES Final Resul t [facility] [address] [place] [address], [facility] * (ABNORMAL) Lipid Profile (06/13/2025 3:09 AM EDT) Non-HDL Cholesterol, Calculated 140(H) 0 - 129 mg/dL 06/13/2025 3:48 AM EDT [facility] Comment: Desirable: < 130 mg/dL Above Desirable: 130-159 mg/dL Borderline High: 160-189 mg/dL High: 190-219 mg/dL Very High: > 219 mg/dL Cholesterol, Total 178 0 - 200 mg/dL 06/13/2025 3:[address] [facility] Triglycerides 308(H) 10 - 149 mg/dL 06/13/2025 3:[address] [facility] HDL 38(L) 60 - 92 mg/dL 06/13/2025 3:[address] [facility] Comment: LIPID PROFILE INTERPRETATION CHOLESTEROL,TOTAL(mg/dL) [...] LDL Cholesterol 78 mg/dL 3:[address] [facility] Plasma 06/13/2025 3:09 AM EDT 06/13/2025 3:22 AM EDT Narrative [facility] - 06/13/2025 3:48 AM EDT Can be obtained within 6 months prior to admission or during current admission LDL cholesterol calculated using the Friedewald equation. us Said Yomi PEREZ LAB BLOOD ORDERABLES Final Resul t [facility] [address] [place] [address] * ECG 12 lead (MUSE) (06/12/2025 6:08 PM EDT) Only the most recent of2 resultswithin the time period is included. 06/12/2025 6:08 PM EDT Narrative MUSE - 06/14/2025 12:09 AM EDT Ventricular Rate: 99 BPM Atrial Rate: 99 BPM P-R Interval: 254 ms QRS Duration: 100 ms QT: 356 ms QTc: 456 ms P Mesa: 47 degrees R Mesa: 59 degrees T Mesa: -9 degrees Diagnosis Line: SINUS RHYTHM WITH 1ST DEGREE A-V BLOCK ^ OTHERWISE NORMAL ECG ^ ^ Confirmed by MD KELLER JULIANE ([id number]) on 06/14/2025 12:09:14 AM us Charlie Celaya MD ECG ORDERABLES Final Result MUSE * LEFT AND RIGHT HEART CATHETERIZATION (06/12/2025 5:56 PM EDT) 06/12/2025 4:38 PM EDT Narrative [facility] - 06/15/2025 12:28 PM EST *[facility]* Cardiac Regulatory Affairs Intern [address] [place] [address] CATHETERIZATION LAB STUDY Patient: Aiden Stauffer Age: 50 Study 06/12/2025 W Date: Patient [id number] Gender: M Study 04:38:52 PM ID: Time: [...] 90mg BID Loaded with 180 mg in laboratory sample carrier Continue high intensity statin Cardiac Rehab Radial Hemostasis- Admit to CVICU/CRIPPLE CHASER/6S service Dc in am if stable INDICATIONS: [...] manner. 3. Right radial artery access. A [id number] Glidesheath - Slender - .021 sheath was [...] stenosis in the mid LAD. 1. A [id number] Pressure Wire X wire was placed. 2. Balloon angioplasty was performed. A 3mm (D) x 15mm (L), Balloon, NC Euphora balloon was employed. The balloon was placed across the lesion and given two inflations with a maximum inflation pressure of 15atm. 3. A .[id number] Runthrough NS extra floppy wire was placed. [...] + !LV pressure s/d, ed !119/10, 18, dP/vj=9213fc Hg/s! + + + !Aortic pressure s/d [...] and electronically signed by Cuong Dobson MD [id number] Procedure Note Cuong Dobson MD - 06/15/2025 *[facility]* Cardiac Regulatory Affairs Intern [address] [place] [address] CATHETERIZATION LAB STUDY Patient: Aiden Stauffer Age: 50 Study 06/12/2025 W Date: Patient [id number] Gender: M Study 04:38:52PM ID: Time: : 1975 HT/WT: 175.3cm / 127.6kg Performing Physician: Cuong Dobson MD Ordering Physician: Lianet Mayen Fellow: MD Yomi Ramirez, Charlie Procedures performed: - Left heart catheterization. - [...] 90mg BID Loaded with 180 mg in laboratory sample carrier Continue high intensity statin Cardiac Rehab Radial Hemostasis- Admit to CVICU/CRIPPLE CHASER/6S service Dc in am if stable INDICATIONS: [...] manner. 3. Right radial artery access. A [id number] Glidesheath - Slender - .021 sheath was [...] stenosis in the mid LAD. 1. A 0.869d843it Pressure Wire X wire was placed. 2. Balloon angioplasty was performed. A 3mm (D) x 15mm (L), Balloon, NC Euphora balloon was employed. The balloon was placed across thelesion and given two inflations with a maximum inflation pressure of 15atm. 3. A .[id number] Runthrough NS extra floppy wire was placed. 4. Stent placement was performed. A 3.5mm (D) x 32mm (L), Stent, Synergy MEGATRON stent was used. The stent was advanced across the lesion and deployed with a single inflation and a maximum pressure of 15atm. STUDY COMPLETION: The patient tolerated the procedure well. There wereno complications. Contrast: Omnipaque 350 150ml (total dose). [id number] 50ml (wasted). Radiation: Fluoroscopy time: 16.4min. Total [...] + !LV pressure s/d, ed !119/10, 18, dP/aj=1274ii Hg/s! + + + !Aortic pressure s/d [...] and electronically signed by Cuong Dobson MD [id number]:28:22 Lianet [facility] [address] Final Result Performing Organization Address [facility] Co de Phone Number [facility] * POC Activated Clotting Time Low Range (06/12/2025 5:51 PM EDT) [facility] Activated Clotting Time, Low Range POC (4) OUT OF RANGE HI 113 - 149 seconds 06/13/2025 5:47 AM EDT [facility] Comment: ACT LOW RANGE TARGET RANGES: [...] ORDERABLES F inal Result Performing Organization Address [facility]/ZIP Co de Phone Number [facility] [address] [place] [address], [facility] * (ABNORMAL) Basic metabolic panel (06/12/2025 1:06 PM EDT) Sodium 136 133 - 146 mmol/L 06/12/2025 2:[address] [facility] Potassium 5.2 3.5 - 5.3 mmol/L 06/12/2025 2:[address] [facility] Comment:Hemolysis Present: R esults may be influenced artificially. Recommend recollection as clinically indicated. Chloride 102 98 - 110 mmol/L 06/12/2025 2:[address] [facility] CO2 23 21 - 33 mmol/L 06/12/2025 2:[address] [facility] Comment:High lactate dehydro genase concentrations in patient samples may cause falsely increased bicarbonate results. If markedly elevated LDH is observed or suspected, please assess results in conjunction with patient`s clinical presentation. In cases of discrepant results, consider evaluating CO2 in with a blood gas order. Anion Gap 11 3 - 16 mmol/L 06/12/2025 2:[address] [facility] BUN 40(H) 7 - 25 mg/dL 06/12/2025 2:[address] [facility] Creatinine 7.61(H) 0.60 - 1.30 mg/dL 06/12/2025 2:[address] [facility] Glucose 123(H) 70 - 100 mg/dL 06/12/2025 2:[address] [facility] Calcium 8.5(L) 8.6 - 10.3 mg/dL 06/12/2025 2:[address] [facility] Osmolality, Calculated 293 278 - 305 mOsm/kg 06/12/2025 2:[address] [facility] EGFR 8 06/12/2025 2:[address] [facility] Comment:As of 2021, the estimated [...] PM EDT 06/12/2025 1:21 PM EDT Narrative [facility] - 06/12/2025 2:07 PM EDT If not done within 14 days or previous BMP results were abnormal Kim Banerjee [facility] BLOOD ORDERABLES Final Resul t Performing Organization Address [facility] [[email or web address]] de Phone Number [facility] [address] [facility] * Protime-INR (06/12/2025 12:08 PM EDT) Protime 13.1 12.1 - 15.1 seconds 06/12/2025 1:[address] [facility] INR 0.9 0.9 - 1.1 06/12/2025 1:00 PM EDT [facility] Comment: RECOMMENDED THERAPEUTIC RANGES USING INR : Stable oral anticoagulant therapy: 2.0 - 3.0 Mechanical prosthetic heart valve: 2.5 - 3.5 Recurrent acute myocardial infarction: 2.5 - 3.5 Plasma 06/12/2025 12:0 8 PM EDT 06/12/2025 12:[address]T [address]ative [facility] - 06/12/2025 1:00 PM EDT If not done within 14 days or preform day of procedure for any patients with liver issues or on Coumadin Kim Banerjee [facility] BLOOD ORDERABLES Final Resul t Performing Organization Address [facility] [[email or web address]] de Phone Number [facility] [address] * Cardiac Cath Documents Scan (06/12/2025 5:58 AM EDT) Scanning [facility] SCAN DOCS - NO RESULTS Final Res ult * Hepatic Function Panel (06/03/2025 11:24 AM EDT) [facility] Bilirubin, Direct 0.7 Bilirubin, Indirect 0.0 Alkaline Phosphatase 96 ALT 13 AST 18 Total Bilirubin 0.7 Total Protein 7.0 Plasma Narrative Resulting Agency Comment [facility] Result Critical access hospital MD LAB BLOOD ORDERABLES Yoselin l Result * Cyclosporine level (06/03/2025 11:24 AM EDT) [facility] Cyclosporine, Blood 42 Whole Blood Result Critical access hospital MD LAB BLOOD ORDERABLES Yoselin l Result * (ABNORMAL) CBC and differential (06/03/2025 11:24 AM EDT) [facility] Hemoglobin 13.7 13.5 - 17.5 g/dL Hematocrit [...] 4.3 10^3/mL Blood Narrative Resulting Agency Comment [facility] Result Critical access hospital MD LAB BLOOD ORDERABLES Yoselin l Result * Renal Function Panel w/o EGFR (06/03/2025 11:24 AM EDT) Glucose 165 BUN 63 CO2 17 13 - 22 mmol/L Creatinine 10.20 Potassium 6.7 Sodium 138 Chloride 103 Phosphorus 4.7 2.5 - 4.9 mg/dL Calcium 8.5 EGFR 7 mg/dL Albumin 4.4 3.5 - 5.0 g/dL Blood Narrative Resulting Agency Comment [facility] Lab [facility] Provider LAB BLOOD ORDERABLES Yoselin l Result * Hepatitis C antibody (02/04/2025 12:48 PM EDT) HCV Ab Nonreactive Nonreactive 02/04/2025 2:[address] [facility] Comment:Health Department no tified in accordance with reportable infectious disease guidelines. Serum 02/04/2025 12:4 8 PM EDT 02/04/2025 1:21 PM [address]T [address]ative [facility] - 02/04/2025 2:33 PM EDT Antibodies to HCV not detected; does not exclude the possibility of exposure to HCV. Ameya Arroyo MD LAB BLOOD ORDERABLES Final Resul t [facility] [address] * HIV-1 and HIV-2 antibodies (02/04/2025 12:48 PM EDT) HIV 1+2 AB/AGN Nonreactive Nonreactive 02/04/2025 2:[address] [facility] Serum 02/04/2025 12:4 8 PM EDT 02/04/2025 1:34 PM EDT Narrative [facility] - 02/04/2025 2:27 PM EDT \HIVRNR Ameya Arroyo MD LAB BLOOD ORDERABLES Final Resul t [facility] [address] * (ABNORMAL) Hemoglobin A1c (02/04/2025 12:48 PM EDT) Hemoglobin A1C 6.4(H) 4.0 - 5.6 % 02/04/2025 9:[address] [facility] Comment: Hemoglobin A1c Interpretation Guidelines: [...] Final Resul t Performing Organization Address City/State/[facility] Co de Phone Number [facility] [address] * Endoscopy, colon, diagnostic (03/23/2022 9:13 AM EDT) 03/23/2022 9:[address] [facility] - 03/23/2022 9:51 AM EDT [id number] Procedure Date: 03/23/2022 9:13 AM Patient Name: [...] verified by the physician, the nurse, the glass crusher and the emergency response technician in the procedure room. Mental Status [...] for surveillance. Procedure Code(s): --- Professional --- 58794, GC, Colonoscopy, flexible; diagnostic, including collection of specimen(s) by brushing or washing, when performed (separate procedure) Diagnosis Code(s): --- Professional --- K64.8, Other hemorrhoids K92.1, Melena (includes Hematochezia) CPT copyright 2020 [employer]. All rights reserved. The codes documented in this report are preliminary and upon boring mill set up operator review may be revised to meet current compliance requirements. ABA MOORE Aba Moore, 03/23/2022 9:51:42 AM Husam Wilmer Hoyos, 03/23/2022 9:50:30 AM Scope Withdrawal Time 0 hours 8 minutes 24 seconds Total Procedure Duration Time 0 hours 15 minutes 38 seconds Scope In: 9:18:06 AM Scope Out: 9:33:[address] [place] [address] [id number] us Provider Not In System GI PROCEDURE ORDERABLES F inal Result [facility] [address] [facility] [address] * (ABNORMAL) Occult Blood (06/15/2020 9:10 AM EST) Occult Blood, Stool #1 Positive(A ) Negative 06/15/2020 1:39 PM EST [facility] Stool specimen (specimen) FECES / Unknown 06/15/2020 9:10 AM EST 06/15/2020 11:52 AM EST Comment:F Yessy Molina MD BODY FLUIDS AND STOOLS ORDERABLES Final Result [facility] [address] from Last 3 Months or Most Recently Relevant to Health Maintenance Insurance [place] MEDICARE [place] MEDICARE Advance Directives For more information, please contact: [phone] Documents on File Type Date Recorded Patient Head Charger Expl anation Living Will Testament - scan [...] 1:34 AM 04/28/2024 5:16 PM Care Teams Leather Leveler Relationship Specialty Start Date End Date Edgar Fournier MD [address] [place] [address] [place] [address] PCP - General 06/12/25 Maile Valles, RN Txp Post Coordinator Transplant Hepatology 11/07/17 Estephania Sharif, PharmD Pharmacist Pharmacist 11/11/19 Khari Lema MD [address] [facility] [address] [place] [address] Txp Steward Dishwasher Transplant Hepatology 05/29/25 Stan Moise, RN Registered Nurse 06/26/25
--- OUTSIDE RECORDS SUMMARY | 2025-08-10 01:55 | XMS_ITS | Encounter Summary ---
Author Organization [facility] Address [address] [place] [address] Care Team Providers Care Iridologist Name Role Phone Ibrahima Fournier MD Primary Care Provider [phone] Enrique Griffith MD Unavailable [phone] Encounter Details Date Type Department Care Team (Late st Contact Info) Description 09/13/2016 [facility] OTTR Encounter Historical OTTR [address] [place] [address] Bridgett Márquez, RN [facility] [id number] [address] [place] [address] Social History Tobacco Use Types Packs/Day Years [...] documented as of this encounter Care Teams Iridologist Relationship Specialty Start [place] [address] PCP - General 12/25/20 Enrique Griffith MD [address] [place] [address] Referring Physician Nephrology 01/08/21 documented as of this encounter
--- OUTSIDE RECORDS SUMMARY | 2025-08-10 01:55 | XMS_ITS | Encounter Summary ---
Author Organization [facility] Address [address] [place] [address] Care Team Providers Care Concrete Boom Operator Name Role Phone Ibrahima Fournier MD Primary Care Provider [phone] Enrique Griffith MD Unavailable [phone] Encounter Details Date Type Department Care Team (Late st Contact Info) Description 09/14/2016 [facility] OTTR Committee Historical OTTR [address] [place] [address] [place] [phone] Social History Tobacco Use Types Packs/Day Years [...] 6 weeks. * Progress Notes - Erika Troung - 06/27/2016 2:08 PM EST ok to [...] [facility] obtain reports. Splenic aneurysm: 2.8 cm on recent MRI- will follow up on imaging. DM-2:Has seen Industrial Maintenance Manager at yesterday- insulin is adjusted, need better [...] syndrome at his last visit at the Hematology clinic in December 2015. Now with [...] as of this encounter Care Teams Concrete Boom Operator Relationship Specialty Start [place] [address] PCP - General 12/25/20 Enrique Griffith MD [address] [place] [address] Referring Physician Nephrology 01/08/21 documented as of this encounter
--- OUTSIDE RECORDS SUMMARY | 2025-08-10 01:55 | XMS_ITS | Encounter Summary ---
Author Organization [facility] Address [address] [place] [address] Care Team Providers Care Club Manager Name Role Phone Ibrahima Fournier MD Primary Care Provider [phone] Enrique Griffith MD Unavailable [phone] Encounter Details Date Type Department Care Team (Late st Contact Info) Description 07/25/2016 [facility] OTTR Encounter Historical OTTR [address] [place] [address] [address] [place] [address] Social History Tobacco Use Types Packs/Day [...] to RTC 09-21-16 at 840. Orders in [facility]. Patient MELD Score 18, updated in [facility]. * Progress Notes - Bridgett Márquez - 07/21/2016 9:38 AM EST Rec'd ph call from patient. 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 He advised he fell and hit his head. They checked him out and sent him home. Will see if they luis alberto the labs I need. Phd Brand Comm- they will fax over records. * Progress Notes - Bridgett Márquez - 06/29/2016 1:13 PM EST Rec'd ph call from Nadya at [facility]. Patient auth recieved for transplant. PA # [id number]. Good from 06-27-2016 until patient has transplant. [...] Márquez - 06/07/2016 10:54 AM EDT Phd [facility] Hosp-s/w Nadya, she adv ABG not drawn. Patient [...] Rec'd ph call from Dr. Olmedo at [facility]. Patient admitted for HE. No signs of infection. Patient will not be able to make ABG tomorrow. They will draw ABG while he is inpatient. * Progress Notes - Bridgett Márquez - 06/02/2016 12:19 PM EDT [facility] * Progress Notes - Bridgett Márquez - [...] special diagnostics on the 5th fl of [facility] to notify pt. * Progress Notes - Brigdett Márquez - 06/02/2016 9:47 AM EDT Need to obtain copy of EGD from [facility]. Phd [facility]-s/w Heather, she will fax records to me. * Progress Notes - Bridgett Márquez - 06/02/2016 9:44 AM EDT Reviewed notes, patient still needs to have ABG for evaluation. ORders in [facility], msg to AG to schedule NIELS/ * Progress Notes - Bridgett Márquez - 05/23/2016 11:21 AM EDT Rec'd ph call from patient. He advised he has been released from [facility]. He adv hewas not happy with the treatment he had at the hospital, and is still feeling a little run down. Headv he is going to see PCP today. * Progress Notes - Bridgett Márquez - 05/19/2016 2:11 PM EDT Rec'd ph call from patient. He advised he was admitted to [facility] on Monday for elevated pneumonia. They are also treating him for elevated BS, possible kidney infection. * Progress Notes - Bridgett Márquez - 05/19/2016 2:07 PM EDT Rec'd msg from patient that he was in ED at [facility]. Phd patient cell- unable to leave a message. * Progress Notes - Bridgett Márquez - 05/17/2016 10:22 AM EDT Awaiting hepatology visit on 06-01 and endocrinology visit on 05-31 * Progress Notes - George November - 05/12/2016 11:08 AM EDT Patient scheduled for labs/hep on 06/01 arriving at 7:00am. [facility] to advise patient of time and date.Reminder [...] 05/04/2016 11:39 AM EDT Rec'd labs from [facility]. Pt MELD score is 18. Phd patient again- no answer. * Progress Notes - Bridgett Márquez - 05/04/2016 9:23 AM EDT Phd patient- no answer. Phd [facility]- s/w lab, they will fax me results. * Progress Notes - Bridgett Márquez - 05/03/2016 10:45 AM EDT Rec'd ph call from patient. He advised he has been feeling weak and dehydrated and would like to goto the ED at [facility]. I advised I will fax lab order. He understood. * Progress Notes - Bridgett Márquez - 05/02/2016 5:17 PM EDT Patient scheduled endocrinology appt 05-31-16 at 11:00am. Need Urgent MRI abdomen, orders in [facility], msg to AG to schedule. [...] socially cleared for listing. Full report in [facility]. * Progress Notes - Bridgett [...] 04/29. Will attempt to send schedule via [facility] Priority Mail Tracking No [id number] with another package at front clerk. He verbalized understanding. * Progress Notes - Bridgett Márquez - 04/25/2016 7:26 PM EDT Per committee decision, patient to have RAPID evaluation. Msg to AG to schedule * Progress Notes - Bridgett Márquez - 04/22/2016 2:[address] Ortega [phone]-s/w ticket clerk, she will fax report to my [...] to call and get this report is [phone]. Pt has disc of the ECHO and [...] EDT Mr Stauffer saw Dr Ortega in [place] for sleep apnea consult - they did [...] recommendation on how to proceed.Request sent to [facility] for review. * Progress Notes - [...] - confirmed his appointment with AG at [facility] on 10/08 at 2pm. He is concernedas his labs are showing some significant changes. Discussed him coming to ED if he needs to but keeping the appt with AG as she will best determine poc at this time. He agreed. [facility]. * Progress Notes - Karolina Brown - 08/18/2015 1:05 PM EST Received call from pt stating Dr. Chauhan would like for him to be seen in the transplant center again. Discussed with Vera Rosales....Pt to have Dr. Cahuhan fax updated info so that we may [...] EXTERNAL LAB - 07/01/2016 1:11 PM EST [facility] Historical Provider LAB BLOOD ORDERABLES Final [...] EXTERNAL LAB - 06/30/2016 10:19 AM EST [facility] Historical Provider LAB BLOOD ORDERABLES Final R esult Performing Organization Address [facility] Co de Phone Number EXTERNAL LAB * OTTR LAB RESULTS (MANUAL) (06/21/2016 9:24 AM EST) External Estimated GFR 71.25 EXTERNAL LAB 06/21/2016 9:24 AM EST Narrative EXTERNAL LAB - 06/21/2016 10:47 AM EST Automated LAB Interface Historical Provider LAB BLOOD ORDERABLES Final R esult Performing Organization Address [facility]/ZIP Co de Phone Number EXTERNAL LAB * [...] 06/01/2016 8:49 AM EDT Automated LAB Interface us Historical [...] EXTERNAL LAB - 05/04/2016 11:38 AM EDT [facility] us Historical Provider LAB BLOOD ORDERABLES Final R esult EXTERNAL LAB * OTTR LAB RESULTS (MANUAL) (04/28/2016 10:50 AM EDT) External Estimated GFR 97.11 EXTERNAL LAB 04/28/2016 10:5 0 AM EDT Narrative EXTERNAL LAB - 04/28/2016 12:43 PM EDT Automated LAB Interface Historical Provider LAB BLOOD ORDERABLES Final R esult Performing Organization Address [facility] de Phone Number EXTERNAL LAB * OTTR LAB RESULTS (MANUAL) (04/22/2016 7:55 AM EDT) [facility] External Estimated GFR 95.89 EXTERNAL LAB 04/22/2016 7:55 AM EDT Narrative EXTERNAL LAB - 04/22/2016 9:13 AM EDT Automated LAB Interface Historical Provider LAB BLOOD ORDERABLES Final R esult Performing Organization Address [facility] de Phone Number EXTERNAL LAB * OTTR LAB RESULTS (MANUAL) (03/16/2016 11:08 AM EDT) Pathologist [facility] External Estimated GFR 90.21 EXTERNAL LAB 03/16/2016 11:0 8 AM EDT Narrative EXTERNAL LAB - 03/16/2016 11:45 AM EDT Automated LAB Interface Historical Provider LAB BLOOD ORDERABLES Final R esult Performing Organization Address [facility] de Phone Number EXTERNAL LAB * OTTR LAB RESULTS (MANUAL) (10/08/2015 3:55 PM EST) [facility] External Estimated GFR 92.41 EXTERNAL LAB 10/08/2015 3:55 PM EST Narrative EXTERNAL LAB - 10/12/2015 8:01 AM EST Automated LAB Interface Historical Provider LAB BLOOD ORDERABLES Final R esult Performing Organization Address [facility] de Phone Number EXTERNAL LAB documented in this encounter Visit Diagnoses Not on filedocumented in this encounter Additional Health Concerns Infection Onset Date Last Indicated Resolved Time COVID-19 Rule-Out 11/08/2021 11/08/2021 11/08/2021 8:06 AM EDT documented as of this encounter Care Teams Club Manager Relationship Specialty Start [place] [address] PCP - General 12/25/20 Enrique Griffith MD [address] [place] [address] Referring Physician Nephrology 01/08/21 documented as of this encounter
--- OUTSIDE RECORDS SUMMARY | 2025-08-10 01:55 | XMS_ITS | Encounter Summary ---
Author Organization [facility] Address [address] [place] [address] Care Team Providers Care Amortization Schedule Clerk Name Role Phone Maile Valles RN Unavailable Unavail able Estephania Sharif PharmD Unavailable Christine Edgar Tolentino MD Primary Care Provider [phone] Khari Lema MD Unavailable [phone] Stan Moise RN Unavailable Unavail able Source [...] release of HIV test results or diagnoses. [id number] Health Reason for Visit * Reason Comments Medication Management Medication Regimen Encounter Details Date Type Department Care Team (Late st Contact Info) Description 07/03/2025 Telephone [facility] Cardiology at [facility] Office [address] [facility] [address] [place] [address] Lianet Mayen CNP [address] [place] [address] Medication Management (Medication Regimen ) Social History Tobacco Use Types Packs/Day Years Used Date Smoking Tobacco: Never Smokeless Tobacco: Never Alcohol Use Standard Drinks/Week Comments Never 0 (1 standard drink = 0.6 oz pur e alcohol) [facility] Utilities Answer Date Recorded In the past [...] living in a mcfp (including now)? No 06/12/2025 Yearly Questionnaire Answer [...] and his heart rate was 41 in [facility] in [place], [place]. Pt states he was having weakness in legs and trouble with hands and denied any current symptoms. Please return call to [phone]. documented in this encounter Plan of Treatment Not on file documented as of this encounter Visit Diagnoses Not on filedocumented in this encounter Additional Health Concerns Assessment Noted Time PHQ-9 Depression Total Score: 0 12/06/19 18 3:00 PM EDT documented as of this encounter Care Teams Amortization Schedule Clerk Relationship Specialty Start Date End Date Edgar Forunier MD [address] [place] [address] PCP - General 06/12/25 Maile Valles, JANA Txp Post Coordinator Transplant Hepatology 11/07/17 Estephania Sharif, DarrianD Pharmacist Pharmacist 11/11/19 Khari Lema MD [address] [facility] [address] [place] [address] Txp Air Hammer Operator Transplant Hepatology 05/29/25 Stan Moise, RN Registered Nurse 06/26/25 documented as of this encounter
--- OUTSIDE RECORDS SUMMARY | 2025-08-10 01:55 | XMS_ITS ---
Author Organization [facility] Address [address] [place] [address] Care Team Providers Care Credentialing Specialist Name Role Phone Ibrahima Fournier MD Primary Care Provider [phone] Enrique Griffith MD Unavailable [phone] Transplant Episode Kidney Candidate [facility] ([place], [place]) [facility] Evaluation began on 02/04/2021 Marked as Active on 02/04/2021 Reason: Undergoing Evaluation Testing Kidney CoordinatorZion Virgen RN Phone: N/A Fax: N/A Email: N/A Scores Score Value Updated Exceptions/Reas ons CPRA Not available EPTS (Calc) 81 08/10/2025 [place] Organ Diagnosis Organ Primary Contributory Kidney Diabetes Mellitus - Type II Care Team Name Role Phone Fax Email Zion Virgen RN Kidney Coordinator N/A N/A N/A Jocelyn Conway LCSW Acid Loader N/A N/A N/A Enrique Millan MD Referring Physician [phone] N/A Events Pre-Transplant Referred: 01/08/2021 Evaluation began: 02/04/2021 Committee: 11/05/2024 Dialysis History Dialysis History Start End Type Comments Center 01/16/2023 [facility] 09/26/2019 Hemodialysis [facility] Dialysis Center Information Center Phone Fax Address [facility] [phone] [address] [facility] [address] [facility] [address] [facility] [phone] [address] [facility] [place] [address]
--- OUTSIDE RECORDS SUMMARY | 2025-08-10 01:55 | XMS_ITS | Encounter Summary ---
Author Organization [facility] Address [address] [place] [address] Care Team Providers Care Brusher And Shearer Name Role Phone Maile Valles RN Unavailable Unavail able Estephania Sharif PharmD Unavailable Christine Edgar Tolentino MD Primary Care Provider [phone] Khari Lema MD Unavailable [phone] Stan Moise RN Unavailable Unavail able Source [...] release of HIV test results or diagnoses. [id number] Health Encounter Details Date Type Department Care Team (Late st Contact Info) Description 08/04/2025 Telephone [facility] Kidney Transplant at [address] [address] Stan Moise, RN Social History Tobacco Use Types Packs/Day Years Used Date Smoking Tobacco: Never Smokeless Tobacco: Never Alcohol Use Standard Drinks/Week Comments Never 0 (1 standard drink = 0.6 oz pur e alcohol) [facility] Utilities Answer Date Recorded In the [...] in a detention (including now)? No 11/05/2023 Housing Stability Vital [...] were you homeless or living in a detention (including now)? No 06/12/2025 Yearly Questionnaire Answer [...] encounter Miscellaneous Notes * Telephone Encounter - Stan Moise RN - 08/04/2025 8:41 AM EST ----- Message from Cuong Dobson MD sent at 08/02/2025 11:16 AM EST ----- Regarding: RE: DAPT agree ----- Message ----- From: Lianet Mayen CNP Sent: 08/01/2025 4:14 PM EST To: Cuong Dobson MD; Stna Moise RN Subject: RE: DAPT Per the notes, he will need to be on DAPT for 6 months prior to interruption. I've attached Dr. Dobson to confirm Thanks Lianet ----- Message ----- From: Stan Moise RN Sent: 08/01/2025 3:24 PM EST To: Lianet Mayen CNP Subject: DAPT Lianet, What is the prescribed length of time for the DAPT? When can it be interrupted for transplant? Thank you. documented in this encounter Plan of Treatment Not on file documented as of this encounter Visit Diagnoses Not on filedocumented in this encounter Additional Health Concerns Assessment Noted Time PHQ-9 Depression Total Score: 0 12/06/19 18 3:00 PM EDT documented as of this encounter Care Teams Brusher And Shearer Relationship Specialty Start Date End Date Edgar Fournier MD [address] [place], [place] [address] PCP - General 06/12/25 Maile Valles, JANA Txp Post Coordinator Transplant Hepatology 11/07/17 Estephania Sharif, DarrianD Pharmacist Pharmacist 11/11/19 Khari Lema MD [address] [facility] [address] [place] [address] Txp Woven Wood Shade Assembler Transplant Hepatology 05/29/25 Stan Moise, RN Registered Nurse 06/26/25 documented as of this encounter
--- OUTSIDE RECORDS SUMMARY | 2025-08-10 01:55 | XMS_ITS | Encounter Summary ---
Author Organization [facility] Address [address] [place] [address] Care Team Providers Care Slip Maker Name Role Phone Maile Valles RN Unavailable Unavail able Estephania Sharif PharmD Unavailable Christine Edgar Tolentino MD Primary Care Provider [phone] Khari Lema MD Unavailable Stan Moise RN [...] release of HIV test results or diagnoses. [id number] Health Reason for Visit * Reason Comments Medication Refill Encounter Details Date Type Department Care Team (Late st Contact Info) Description 07/22/2025 Refill [facility] Internal Medicine at [address] [place] [address] June Chi MD [address] [place] [address] Social History Tobacco Use Types Packs/Day Years Used Date Smoking Tobacco: Never Smokeless Tobacco: Never Alcohol Use Standard Drinks/Week Comments Never 0 (1 standard drink = 0.6 oz pur e alcohol) [facility] Utilities Answer Date Recorded In the [...] in the past 12 m [facility], were you homeless or living in a [...] as of this encounter Care Teams Slip Maker Relationship Specialty Start Date End Date Edgar Fournier MD [address] [place] [address] [place] [address] PCP - General 06/12/25 Maile Valles, JANA Txp Post Coordinator Transplant Hepatology 11/07/17 Estephania Sharif, DarrianD Pharmacist Pharmacist 11/11/19 Khari Lema MD [address] [facility] [address] [place] [address] Txp Die Cast Engineer Transplant Hepatology 05/29/25 Stan Moise, RN Registered Nurse 06/26/25 documented as of this encounter
--- OUTSIDE RECORDS SUMMARY | 2025-08-10 01:55 | XMS_ITS | Encounter Summary ---
Author Organization [facility] Address [address] [place] [address] Care Team Providers Care Psychology Teacher Name Role Phone Maile Valles RN Unavailable Unavail able Estephania Sharif PharmD Unavailable Christine Edgar Tolentino MD Primary Care Provider [phone] Khari Lema MD Unavailable [phone] Stan Moise RN Unavailable Unavail able Source [...] release of HIV test results or diagnoses. [id number] Health Encounter Details Date Type Department Care Team (Late st Contact Info) Description 06/26/2025 Telephone [facility] Kidney Transplant at [address] [address] Stan Moise, RN Social History Tobacco Use Types Packs/Day Years Used Date Smoking Tobacco: Never Smokeless Tobacco: Never Alcohol Use Standard Drinks/Week Comments Never 0 (1 standard drink = 0.6 oz pur e alcohol) [facility] Utilities Answer Date Recorded In the past [...] any time in the past 12 m [facility], were you homeless or living in a prison (including now)? No 06/12/2025 Yearly Questionnaire Answer [...] documented as of this encounter Care Teams Psychology Teacher Relationship Specialty Start Date End Date Edgar Fournier MD [address] [place] [address] PCP - General 06/12/25 Maile Valles, JANA Txp Post Coordinator Transplant Hepatology 11/07/17 Estephania Sharif, PharmD Pharmacist Pharmacist 11/11/19 Khari Lema MD [address] [facility] [address] [place] [address] Txp Fermenter Helper Transplant Hepatology 05/29/25 Stan Moise, RN Registered Nurse 06/26/25 documented as of this encounter
[2025-08-10] MEDS: MORPHINE 4MG/ML SYRINGE 4 MG IV (02:06)
[2025-08-10] MEDS: SODIUM CHLORIDE 0.9% 25ML BAG 25 ML IV (02:07)
[2025-08-10] MEDS: PROMETHAZINE HCL 25MG/ML 1ML VIAL 25 MG IV (02:07)
[2025-08-10] MEDS: RINGERS SOLUTION,LACTATED 500 ML 999 ML IV (02:07)
--- NOTE | 2025-08-10 02:16 | ECG_ITS ---
APPROVED REPORT Exam: Resting ECG HR:112 bpm ECG Measurements Heart Rate 112 AXES QRSd 107 QRS 61 QT 315 T 53 QTc 381 Conclusion ATRIAL FIBRILLATION WITH RAPID VENTRICULAR RESPONSE POSSIBLE INFERIOR MYOCARDIAL INFARCTION , PROBABLY OLD [30 ms Q WAVE IN II/aVF] ABNORMAL RHYTHM ECG UNCONFIRMED REPORT Electronically signed by : CRISTINO MENON, 08/12/2025 08:46:36
[2025-08-10 02:19] LABS: Lactate Venous 2.0 mmol/L (0.4-2.0); VBG HCO3 16.0 mmol/L (23-30); VBG PCO2 35.0 mmol/L (35-51); VBG PH 7.28 mmol/L (7.31-7.41); VBG PO2 40.6 mmol/L (28-40)
[2025-08-10 02:32] LABS: Acetone, Serum (Rapid) None Detected (None Detect)
[2025-08-10 02:33] LABS: Hematocrit 40.7 % (42.0-52.0); Hemoglobin 13.0 g/dL (14.1-18.0); Immature Granulocytes % 1.5 %; Mean Corpuscular HGB Conc 31.9 g/dL (31.8-35.4); Mean Corpuscular Hemoglobin 31.8 pg (27.0-31.2); Mean Corpuscular Volume 99.5 fl (80-94); Nucleated Red Blood Cells % 0.3 %; Platelet Count 312 K/mm3 (142-424); Red Blood Count 4.09 M/mm3 (4.60-6.20); Red Cell Distribution Width-SD 55.6 fL; White Blood Count 16.1 K/mm3 (4.8-10.8)
[2025-08-10 02:36] LABS: Albumin Level 4.3 g/dl (3.5-5.0); Chloride 105 mmol/L (98-107); Potassium 5.7 mmoL/L (3.5-5.1); Sodium 140 mmol/L (136-145)
[2025-08-10 02:38] LABS: Blood Urea Nitrogen 72 mg/dl (9-20); Creatinine Clearance Estimated 8 mL/min (50-200); Estimated Glomerular Filt Rate 5 ml/min (>60); GFR (African American) 6 ML/MIN (>60)
[2025-08-10 02:38] LABS: Coronavirus 19, PCR Not Detected (NotDetected); Influenza A, PCR Not Detected (NotDetected); Influenza B, PCR Not Detected (NotDetected)
[2025-08-10] MEDS: HYDROMORPHONE 2MG/ML SYRINGE 0.5 MG IV (02:38)
[2025-08-10 02:39] LABS: Alanine Aminotransferase 12 U/L (12-78); Albumin/Globulin Ratio 1.5 (1.1-1.8); Alkaline Phosphatase 73 U/L (38-126); Anion Gap 22.7 mEq/L (5-15); Aspartate Amino Transferase 22 U/L (17-59); Bilirubin,Total 0.7 mg/dl (0.2-1.3); Calcium 9.0 mg/dl (8.4-10.2); Carbon Dioxide 18 mmol/L (22.0-30.0); Globulin 2.8 g/dL (1.3-3.2); Glucose 119 mg/dl (74-100); Total Protein,Serum 7.1 g/dl (6.3-8.2)
[2025-08-10 02:51] LABS: Troponin I 0.12 ng/ml (0.00-0.034)
[2025-08-10 02:53] LABS: Creatinine,Serum 10.60 mg/dl (0.66-1.25)
--- NOTE | 2025-08-10 03:14 | HMH.EDGENADL ---
Discharge Plan Disposition Patient Disposition: Xfer Short-Term Hosp Condition: Fair Prescriptions Prescriptions: No Action mycophenolate mofetil 250 mg capsule 250 mg PO DAILY 30 Days Qty: 120 Patient Comments: ergocalciferol (vitamin D2) 1,250 mcg (50,000 unit) capsule 50,000 unit PO .COMPLEX 28 Days Patient Comments: Rx Instructions: 50,000 units PO 3xweek; doxazosin 8 mg tablet 8 mg PO DAILY carbamazepine 200 mg tablet 200 mg PO QHS entecavir 0.5 mg tablet 0.5 mg PO WEEKLY Patient Comments: Take 1 tablet (0.5 mg total) by mouth every 7 days. cholecalciferol (vitamin D3) 1,250 mcg (50,000 unit) capsule 1,250 mcg PO .TIW Patient Comments: take 1 Capsule by mouth 3 times weekly montelukast 10 mg tablet 10 mg PO DAILY folic acid 1 mg tablet 1 mg PO DAILY Patient Comments: TAKE ONE TABLET BY MOUTH EVERY DAY azelastine 137 mcg (0.1 %) aerosol,spray 1 spray intranasal BID Qty: 30 2RF Rx Instructions: administer into each nostril insulin aspart U-100 [Novolog FlexPen U-100 Insulin] 100 unit/mL (3 mL) insulin pen SQ nifedipine 90 mg tablet extended release 24hr 90 mg PO DAILY Patient Comments: Take 1 tablet(s) by mouth twice daily calcium acetate(phosphat bind) 667 mg capsule 667 mg PO ONCE Patient Comments: TAKE 1 CAPSULE BY MOUTH THREE TIMES DAILY WITH MEALS AND 1 CAPSULE DAILY WITH A SNACK testosterone cypionate 200 mg/mL oil 200 mg SQ QMONTH Patient Comments: inject 1 Milliliter intramuscular inject once monthly cyclosporine 25 mg capsule 100 mg PO BID methocarbamol 750 mg tablet 750 mg PO TID Qty: 42 0RF amantadine HCl 100 mg tablet 100 mg PO DAILY fexofenadine 180 mg tablet 180 mg PO DAILY (DME) True Metrix Glucose Test Strip Strip See Rx Instructions miscellaneous .MEDSUPPLY Qty: 10 Rx Instructions: As directed fenofibrate micronized 134 mg capsule 134 mg PO DAILY alprazolam 0.5 mg tablet 0.5 mg PO DAILY PRN famotidine 20 mg tablet 20 mg PO BID calcium carbonate 500 mg calcium (1,250 mg) tablet 500 mg PO TID hydralazine 100 mg tablet 100 mg PO TID Humulin N NPH Insulin KwikPen 100 unit/mL (3 mL) insulin pen 40 unit SQ DAILY (DME) FreeStyle Leonel 3 Plus Sensor Device See Rx Instructions .ROUTE .MEDSUPPLY Qty: 1 Patient Comments: USE DIRECTED EVERY 15 DAYS Rx Instructions: As directed (DME) pen needle, diabetic [Gill Pen Needle] 32 gauge x 5/32 needle See Rx Instructions .ROUTE DIRECTED Qty: 1200 Rx Instructions: As directed icosapent ethyl [Vascepa] 1 gram capsule 2 g PO BID (DME) lancets [TRUEplus Lancets] 33 gauge misc See Rx Instructions .ROUTE .MEDSUPPLY Qty: 100 Rx Instructions: As directed ticagrelor [Brilinta] 90 mg tablet 90 mg PO BID carvedilol 3.125 mg tablet 3.125 mg PO BID aspirin 81 MG tablet,delayed release (DR/EC) 81 mg PO DAILY pantoprazole 40 MG tablet,delayed release (DR/EC) 40 mg PO DAILY Referrals Follow up/Referrals: Edgar Fournier [Primary Care Provider, Medical] - See instructions Clinical Impressions Clinical Impression: Atrial fibrillation with RVR, ESRD (end stage renal disease) on dialysis, Hyperkalemia, Nausea, vomiting, and diarrhea, Non-ST elevation AR (NSTEMI) Stand Alone Forms Stand Alone Forms: Transfer Record - ED Print Language Print Language: Frisian Discharge ED Provider: Thao Sharma Adult HPI General Chief complaint: PAIN Stated complaint: Weakness Time Seen by Provider: 08/10/25 01:48 Mode of Arrival: EMS Source of Information: Patient and EMS Description of Symptoms (Recalled from ER Triage Doc. by RN): EMS sates they was called for a 50YOM complaining of flu like symptoms. States fever, chills and body aches. EMS put a 22g in the right hand. Patient states he hasnt had a fever, just feels hot. States he has had flare ups in his joints and in great pain. states 05/23. Patient states he has been around someone who had the flu and is concerned he has it. States he has had body aches. 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 States he has also had diarrehea x4 today. States she took tylenol 3 times today and has not had any relief. History of Present Illness HPI narrative: 50-year-old male with ESRD on home hemodialysis 4 days a week including 2 nights ago presents to the ER complaining of flulike symptoms including chills, cough, congestion, nausea, vomiting, diarrhea, and bodyaches. Patient states he has diffuse bodyaches, no focal pain. He states he has been exposed to the flu recently and is concerned he may have it. His diarrhea is described as nonbloody, nonmelanotic. Emesis is nonbloody, nonbilious. He has taken Tylenol 3 times today including a few minutes prior to arrival without relief of symptoms. He has also taken Zofran prior to arrival without relief of symptoms. Currently not able to tolerate oral intake. Patient is on the transplant list at [facility]. He also has a history of prior liver transplant. He has a history of chronic pain, CAD, JC. He states he has had mild shortness of breath over the last few weeks and has been evaluated by his cad cam programmer for it which they reportedly have stated they are not concerned. He states this has been chronic and unchanged tonight. Related Data Home Medications ?Medication ?Instructions ?Recorded ?Confirmed mycophenolate mofetil 250 mg 250 mg PO DAILY Supplement 30 days 11/27/17 06/30/25 capsule ##120 aspirin 81 mg tablet,delayed 81 mg PO DAILY SUP 04/15/18 06/30/25 release calcium acetate(phosphat bind) 667 667 mg PO ONCE Supplement 02/20/20 06/30/25 mg capsule ergocalciferol (vitamin D2) 1,250 50,000 unit PO .COMPLEX Supplement 02/20/20 06/30/25 mcg (50,000 unit) capsule 28 days nifedipine 90 mg tablet,extended 90 mg PO DAILY High blood pressure 02/20/20 06/30/25 release 24 hr carbamazepine 200 mg tablet 200 mg PO QHS unknown 03/25/20 06/30/25 doxazosin 8 mg tablet 8 mg PO DAILY unknown 03/25/20 06/30/25 cyclosporine 25 mg capsule 100 mg PO BID unknown 10/19/21 06/30/25 entecavir 0.5 mg tablet 0.5 mg PO WEEKLY unknown 10/19/21 06/30/25 testosterone cypionate 200 mg/mL 200 mg SQ QMONTH Supplement 10/19/21 06/30/25 intramuscular oil pantoprazole 40 mg tablet,delayed 40 mg PO DAILY GERD 02/13/22 06/30/25 release cholecalciferol (vitamin D3) 1,250 1,250 mcg PO .TIW 04/06/22 06/30/25 mcg (50,000 unit) capsule folic acid 1 mg tablet 1 mg PO DAILY 05/31/22 06/30/25 montelukast 10 mg tablet 10 mg PO DAILY 05/31/22 06/30/25 insulin aspart U-100 100 unit/mL SQ 02/09/24 06/30/25 (3 mL) subcutaneous pen (Novolog FlexPen U-100 Insulin aspart) alprazolam 0.5 mg tablet 0.5 mg PO DAILY PRN 06/30/25 06/30/25 amantadine HCl 100 mg tablet 100 mg PO DAILY 06/30/25 06/30/25 blood sugar diagnostic (True #10 ea 06/30/25 06/30/25 Metrix Glucose Test Strip) blood-glucose sensor (FreeStyle #1 ea 06/30/25 06/30/25 Leonel 3 Plus Sensor device) calcium carbonate 500 mg PO TID 06/30/25 06/30/25 famotidine 20 mg tablet 20 mg PO BID 06/30/25 06/30/25 fenofibrate micronized 134 mg 134 mg PO DAILY 06/30/25 06/30/25 capsule fexofenadine 180 mg tablet 180 mg PO DAILY 06/30/25 06/30/25 hydralazine 100 mg tablet 100 mg PO TID 06/30/25 06/30/25 icosapent ethyl 1 gram capsule 2 g PO BID 06/30/25 06/30/25 (Vascepa) insulin NPH isoph U-100 human 100 40 unit SQ DAILY 06/30/25 06/30/25 unit/mL (3 mL) subcutaneous pen (Humulin N NPH U-100 Insulin KwikPen) lancets 33 gauge (TRUEplus Lancets) #100 ea 06/30/25 06/30/25 pen needle, diabetic 32 gauge x #1,200 ea 06/30/25 06/30/25 (Gill Pen Needle) ticagrelor 90 mg tablet (Brilinta) 90 mg PO BID 06/30/25 06/30/25 carvedilol 3.125 mg tablet 3.125 mg PO BID 07/17/25 07/17/25 Previous Rx's ?Medication ?Instructions ?Recorded azelastine 137 mcg (0.1 %) nasal 1 spray intranasal BID #30 mL 01/01/24 spray methocarbamol 750 mg tablet 750 mg PO TID #42 tabs 06/25/25 Allergies Allergy/AdvReac Type Severity Reaction Status Date / Time tacrolimus Allergy Agitated Verified 07/17/25 14:46 [facility] Disclaimer: The information contained in this section may have been updated after the patient was seen, as this information can be updated by other users. Medical History Bilateral hand pain First degree AV block Mitral valve vegetation Coronary artery disease Ear drainage Ear drainage right Hard of hearing Retraction of tympanic membrane of left ear Chronic eustachian tube dysfunction Hearing loss in left ear History of left heart catheterization History of transesophageal echocardiography ([facility]) JC (obstructive sleep apnea) Severe JC and nocturnal hypoxemia. Unable to tolerate AutoPap, CPAP, auto BiPAP. He did well on BiPAP during previous hospitalization at and during recent titration at [facility]. Kidney stone Anxiety He has a prescription for Xanax Mixed conductive and sensorineural hearing loss of both ears Arthritis Diabetes mellitus Memory problem Renal failure Hepatitis History of stomach ulcers Hypertension Sleep apnea Kidney disease Surgical History History of coronary artery stent placement History of placement of ear tubes History of right heart catheterization History of esophagogastroduodenoscopy History of colonoscopy History of liver transplant History of back surgery History of surgery on lower extremity Family History Other Asthma Diabetes Heart disease Hypertension Kidney disease Social History Smoking Status: Never smoker alcohol intake: never counseling provided: none substance use type: denies use current occupational status: disabled Travel in the last 8 weeks?: None household members: family housing: house Other Medical History Have you received the Flu Vaccine for this season: No Have you received the Pneumonia Vaccine: Yes ROS Obtained: Yes Systems reviewed as appropriate & no additional complaints except as documented per HPI Physical Exam General General appearance: alert, in no apparent distress and obese Comment: chronically ill appearing Head Head exam: atraumatic and normocephalic Eye Eye exam: Present PERRL and EOMI ENT ENT exam: Present mucous membranes moist Neck Neck exam: Present normal inspection and full ROM Chest Chest inspection: Present symmetric chest wall rise Respiratory Respiratory exam: Present normal lung sounds bilaterally; Absent respiratory distress, wheezes or stridor Cardiovascular Cardiovascular exam: Present tachycardia and irregular rhythm Abdominal Exam Abdominal exam: Present soft and hernia (Large right ventral wall hernia); Absent distention or tenderness Extremities Exam Extremities exam: Present full ROM and normal capillary refill; Absent edema Neurological Exam Neurological exam: Present alert and oriented X3; Absent motor sensory deficit Psychiatric Psychiatric exam: Present normal affect and normal mood Skin Skin exam: Present warm and dry Medical Decision Making Medical Records Medical records reviewed: Yes I reviewed the patient's medical records. Screening: Per USPSTF and CDC recommendations, given the prevalence of disease in our region, it is our hospital?s policy to screen for HIV and viral Hepatitis for all patients aged 18 and over and those with ongoing risk factors. Bello Inquiry Pt receiving controlled substance: No Vital Signs: 08/10/25 01:53 Temperature 98.8 F Temperature Source Oral Pulse Rate [Right] 119 H Respiratory Rate 18 Blood Pressure [Right Arm] 122/90 Blood Pressure Mean [Right Arm] 100 02 Sat by Pulse Oximetry 98 Oxygen Delivery Method Room Air Lab Data Lab Results 08/10/25 02:10: WBC 16.1 H, RBC 4.09 L, Hgb 13.0 L, Hct 40.7 L, MCV 99.5 H, MCH 31.8 H, MCHC 31.9, RDW 15.9, Plt Count 312, MPV 9.8, Neut % (Auto) 90.4 H, Lymph % (Auto) 2.4 L, Lassen % (Auto) 5.1, Eos % (Auto) 0.4, Baso % (Auto) 0.2, Neut # (Auto) 14.6 H, Lymph # (Auto) 0.4 L, Lassen # (Auto) 0.8, Eos # (Auto) 0.1, Baso # (Auto) 0.0, Total Counted 100, Neutrophils % (Manual) 94 H, Lymphocytes % (Manual) 6 L, Platelet Estimate Normal, RBC Morphology Normal, VBG pH 7.28 L, VBG pCO2 35.0, VBG pO2 40.6 H, VBG HCO3 16.0 L, VBG Total CO2 17.1 L, VBG O2 Saturation 71.5 H, VBG Base Excess -10.7 L, VBG Lactic Acid 2.0, Sodium 140, Potassium 5.7 H, Chloride 105, Carbon Dioxide 18 L, Anion Gap 22.7 H, BUN 72 H, Creatinine 10.60 H, Estimated Creat Clear 8, Estimated GFR 5 L*, Est GFR ( Amer) 6 L*, Glucose 119 H, Calcium 9.0, Total Bilirubin 0.7, AST 22, ALT 12, Alkaline Phosphatase 73, Troponin I 0.12 H, Total Protein 7.1, Albumin 4.3, Globulin 2.8, Albumin/Globulin Ratio 1.5, Lipase 63, Acetone Level None detected 08/10/25 02:30: SARS-CoV-2 (PCR) Not detected, Influenza Type A (PCR) Not detected, Influenza Type B (PCR) Not detected, RSV (PCR) Not detected, Rhinovirus (PCR) Not detected 08/10/25 02:10 08/10/25 02:10 Orders (Tests/Meds): ED MEDICATIONS Discontinued Medications Generic Name Dose Route Start Last Admin Trade Name Freq PRN Reason Stop Dose Admin Hydromorphone HCl 0.5 mg 08/10/25 02:27 08/10/25 02:38 Hydromorphone 2mg/Ml Syringe IV 08/10/25 02:28 0.5 mg ONCE ONE Administration Lactated Ringer's 500 mls @ 999 mls/hr 08/10/25 01:52 08/10/25 02:58 Lactated Ringer's 500ml IV 08/10/25 02:22 Infused .Q31M ONE Infusion Metoprolol Tartrate 2.5 mg 08/10/25 04:20 08/10/25 04:41 Metoprolol Tartrate 5mg/5ml Vial IV 08/10/25 04:21 2.5 mg ONCE ONE Administration Metoprolol Tartrate 2.5 mg 08/10/25 06:08 08/10/25 06:18 Metoprolol Tartrate 5mg/5ml Vial IV 08/10/25 06:09 2.5 mg ONCE ONE Administration Morphine Sulfate 4 mg 08/10/25 01:54 08/10/25 02:06 Morphine 4mg/Ml Syringe IV 08/10/25 01:55 4 mg ONCE ONE Administration Promethazine HCl 25 mg 08/10/25 01:52 08/10/25 02:07 Promethazine Hcl 25mg/Ml 1ml Vial IV 08/10/25 01:53 25 mg ONCE ONE Administration Sodium Chloride 25 ml 08/10/25 01:52 08/10/25 02:07 Sodium Chloride 0.9% 25ml Bag IV 08/10/25 01:53 25 ml ONCE ONE Administration ORDERS Category Date Time Status CXR --portable [XR chest portable] Stat Exams 08/10/25 04:06 Completed Acetone, Serum (Rapid) Stat Lab 08/10/25 02:10 Completed CBC w/Auto Diff [Complete Blood Count Auto Diff] Stat Lab 08/10/25 02:10 Completed CMP [Comprehensive Metabolic Panel] Stat Lab 08/10/25 02:10 Completed Lipase Stat Lab 08/10/25 02:10 Completed Mini Respiratory Panel Stat Lab 08/10/25 02:30 Completed Trop I [Troponin I] Stat Lab 08/10/25 02:10 Completed Troponin I Q3H Lab 08/10/25 05:00 Ordered Troponin I Q3H Lab 08/10/25 08:00 Ordered VBG [Venous Blood Gas] Stat RT 08/10/25 02:10 Completed ECG Request Stat Y 08/10/25 01:50 Ordered Medical Decision Narrative: In summary, this 50-year-old male with comorbidities described in the HPI presents to the emergency department today with chills, diffuse body aches, cough, congestion, nausea, vomiting, diarrhea. On initial evaluation patient is tachycardic with irregularly irregular rhythm, otherwise hemodynamically stable, afebrile, GCS 15, no peripheral edema, abdominal exam is overall benign aside from a large right ventral wall hernia which is soft, nontender, no evidence of overlying skin changes that would be concerning for strangulation. Pulmonary exam benign.. Differential diagnosis includes but is not limited to viral syndrome including COVID, influenza, other virus, I also considered the possibility of viral GI bug such as norovirus which has been going around in the community. I also considered electrolyte abnormality, dehydration, worsening kidney dysfunction. Patient does not make any urine at baseline and states he has been managing his hemodialysis appropriately as directed. He states he is due for it tonight. I initially considered the possibility of lactic acidosis, pancreatitis, metabolic acidosis, among others. Based on these concerns, I ordered hematologic and serum labs, cardiac workup, VBG, viral panel. ECG personally interpreted demonstrates A-fib with RVR rate 112, normal axis, normal QTc, no STEMI. Patient states he has been in A-fib briefly in the past. He is already on ticagrelor but not on other blood thinners. 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 Patient received small bolus of IV fluids due to concern for dehydration for treatment. He also received morphine and Phenergan. He states morphine typically does not work for him so 1 dose of Dilaudid was administered. He understands that additional Dilaudid will not be administered. Labs personally reviewed demonstrate leukocytosis WBC 16.1 with neutrophil predominance, anemia hemoglobin 13.0 not significantly changed from prior, normal platelets, VBG with metabolic acidosis, low bicarb and pH 7.28 consistent with volume losses including vomiting and diarrhea. Patient does have mild hyperkalemia on CMP but he has no hyperacute changes on ECG, no QRS widening or QT prolongation. Elevated anion gap similar to previous, BUN and creatinine are elevated also similar to previous though his BUN is more elevated than it was the last time he had labs. He is already receiving a small amount of IV fluids. Initial troponin 0.12, patient has had troponin elevation in the past and I believe this represents type II NSTEMI with his tachycardia and overall generalized illness at this time. It is possible that his troponin is also at baseline since the last time he had a troponin was back in 2021 at this facility, and his troponin was elevated in the setting of ESRD at that time which could still be falsely further elevating it since his ESRD is more advanced now. I am not going to be starting this patient on heparin since I believe this is demand related and he is asymptomatic. XR personally interpreted demonstrates evidence of volume overload consistent with the patient being due for dialysis treatment. See radiology read for final interpretation. On further reassessment his tachycardia has not significantly improved. He is still in atrial fibrillation with variable rate between 115 and 125. I am going to administer and metoprolol for rate control. Heart rate has improved to the low 100s. This is a good improvement. Because patient is ill I do not want to further lower his heart rate and cause hypoperfusion, but I am happy with this improvement. I had reached out to our hospitalist and discussed this case with Dr. Finney because the patient does his own home hemodialysis even while hospitalized according to both him and his at bedside. He states he has been admitted to other facilities before and continue doing his own hemodialysis while admitted. I discussed this case with the hospitalist but they are not comfortable keeping this patient since there is no nephrology consult if the patient were to worsen or not tolerate his HD. I believe this is reasonable. I reached out to [facility] for transfer. Unfortunately [place] does not have nephrology on-call at this time and has no cardiology so they are not able to take him. Awaiting a callback from [facility] at this time ([id number]). [id number] I received a callback from [facility] [place] [place] and spoke with Irasema Trinh, nurse practitioner. After reviewing this case at length, she agrees with management so far. She graciously accepted this patient for admission under Dr Lacy. Awaiting a callback from [facility] transfer center with bed assignment at this time. Bed was assigned, report called from RN to RN. Patient had become tachycardic with his A-fib RVR again having more rapid response so additional low dose of IV metoprolol was administered. His heart rate improved from the 120s down to the 90s and low 100s again. He is resting comfortably, tolerating this well. He was reassessed immediately prior to transfer. Airway intact, GCS 15, hemodynamically stable with improved heart rate. He is appropriate for transfer and was transferred in stable condition by ALS ambulance. Critical Care Critical Care Time Critical Care Time: No
[2025-08-10 03:17] LABS: RBC Morphology Normal; Total Cells Counted 100
[2025-08-10 04:01] LABS: Lipase 63 U/L (23-300)
--- NOTE | 2025-08-10 04:06 | XR_ITS ---
PROCEDURE INFORMATION: Exam: XR Chest Exam date and time: 08/10/2025 4:26 AM Age: 50 years old Clinical indication: Shortness of breath; Additional info: SOA TECHNIQUE: Imaging protocol: Radiologic exam of the chest. Views: 1 view. COMPARISON: CR XR CHEST 2V 06/30/2025 1:36 PM FINDINGS: Tubes, catheters and devices: Central venous catheter distal tip is at the cavoatrial junction. Lungs: Prominence of the pulmonary vasculature. No consolidation. Pleural spaces: Unremarkable. No pleural effusion. No pneumothorax. Heart/Mediastinum: Moderate cardiomegaly increased from prior. Bones/joints: Unremarkable. IMPRESSION: Increasing cardiomegaly and prominence of the pulmonary vasculature likely representing mild volume overload. No focal infiltrates identified.
[2025-08-10] MEDS: METOPROLOL TARTRATE 5MG/5ML VIAL 2.5 MG IV ×2 (04:41→06:18)
[2025-08-10 07:00] VITALS: BP 111/75; PULSE 103; RESP 18; TEMP 36.8; O2SAT 97
== END 2025-08-10 07:01 | disposition short-term general hospital (02) ==
PROVIDERS: Emergency Provider Emergency Medicine; PCP Family Medicine
DX: E87.21 Acute metabolic acidosis (principal); E87.5 Hyperkalemia; I48.91 Unspecified atrial fibrillation; R11.2 Nausea with vomiting, unspecified; N18.6 End stage renal disease; R53.1 Weakness; E11.22 Type 2 diabetes mellitus with diabetic chronic kidney disease; Z99.2 Dependence on renal dialysis; Z79.4 Long term (current) use of insulin
CPT/HCPCS: 71045; 80053; 82009; 82803; 83690; 84484; 85007; 85025; 87631; 93005; 96374; 96375; 96376; 99285; J1171; J2270; J2550; J7120